=== PATIENT | female | born 1955 | race Caucasian/White ===

== ENCOUNTER 2020-05-05 07:45 | Emergency (ER) | payer MEDICARE, MEDICAID, SELFPAY ==
[2020-05-05] VITALS (7 sets, daily range): BP systolic 126–215; BP diastolic 86–118; PULSE 100–116; RESP 20; TEMP 36.5–37.3; O2SAT 94–96; BMI 30.9
--- NOTE | 2020-05-05 08:06 | RAD_ITS ---
STUDY: X-RAY CHEST REASON FOR EXAM: Female, 64 years old. Acute chest pain TECHNIQUE: Single AP portable view of the chest. COMPARISON: 05/12/2016 FINDINGS: The leads overlie the chest There are interstitial fibrotic changes of the lungs. Stable blunting of the right costophrenic angle unchanged from the previous study, likely postsurgical Normal size heart. Normal mediastinum and eli. Normal visualized pulmonary arteries. Normal visualized aortic arch and descending thoracic aorta. There are diffuse degenerative changes of the visualized thoracic spine. There is degenerative osteoarthritis of the bilateral shoulders. There is no demonstrated abnormality of the visualized soft tissue structures of the upper abdomen. RAD/Chest 1 View (Portable) IMPRESSION: Chronic interstitial and post surgical changes, no acute findings Electronically Signed: Jesus Manuel Waters MD at 9:11 EST , Service support ,
--- NOTE | 2020-05-05 08:14 | ED.DCSUM_ITS ---
History of Present Illness Chief Complaint: Shortness of Breath Informant: Patient Onset: Yesterday Maximum Severity: Mild Narrative: Patient presents complaining of a sensation where her whole body gets hot feels as if she will suddenly put on fire feels then short of breath, symptoms last for a few minutes and resolve this initially occurred yesterday, spontaneously, resolved on its own, then again this morning she felt as if her whole body was put on fire felt short of breath anxious paramedics were called on their arrival her blood pressure was 210/100 and she was brought to the hospital, on exam when she presented per staff she was quite anxious and nervous they were able to verbally redirect her her blood pressure spontaneously improved to about 150/80. The patient has history of COPD right upper lobe lung resection for cancer 2003, hypertension that stable, she has no history of SC PE or DVT, no coronavirus exposures, she is chronically on 2.5 L of oxygen her COPD status has been basically fine she is had no exposures to Covid she is sitting in the bed now saying she feels back to her baseline no burning sensation no chest pain no shortness of breath speaking full sentences. In addition she reports anniversary of her son's and his birthday was recently she is been quite anxious nervous about that she does have an anxiety disorder related to the above she is on medications generally that is been stable but recently her son's birthday she has been quite anxious about his Past Medical History - Allergies and Home Meds Allergies/Adverse Reactions: Allergies Penicillins Allergy (Verified 05/05/20 07:52) Rash Primary Care Physician: Arnulfo Fall MD [Primary Care Provider] - Past Medical History: - - Right upper lobe lung resection COPD anxiety Surgical History: - - Right lung lobectomy due to lung cancer in 2003, no known metastases, remote exploratory laparotomy due to infected ovarian cyst, tubal , chemo therapy, radiation, polyp removed in throat. Smoking Status: Current every day smoker - Family History Maternal Family History: Reports: No pertinent history Paternal Family History: Reports: No pertinent history Review of Systems General: Denies: Chills, Fever, Sweats Eyes: Denies: Visual changes - bilaterally, Diplopia ENT: Denies: Rhinorrhea, Sore throat Cardiovascular: Reports: Chest pain. Denies: Palpitations Respiratory: Reports: Dyspnea. Denies: Cough, Dyspnea on exertion Gastrointestinal: Denies: Abdominal pain, Nausea, Vomiting, Diarrhea, Melena, Hematochezia Genitourinary: Denies: Dysuria, Hematuria, Frequency Musculoskeletal: Denies: Back pain, Extremity Pain Skin: Denies: Rash, Wounds Neurological: Denies: Headache, Weakness, Numbness Physical Exam Vital Signs/Narrative: Vital Signs Temp Pulse Resp BP Pulse Ox 05/05/20 08:02 110 H 20 H 157/86 H 95 05/05/20 07:54 105 H 20 H 150/118 H 95 05/05/20 07:52 97.7 F L 113 H 20 H 215/109 H 94 05/05/20 07:48 97.7 F L 116 H 20 H 215/109 H 95 General: Well nourished, Well developed, No Acute Distress Head: Normocephalic, Atraumatic Eyes: Perrl, EOMI ENT: Moist mucous membranes, No rhinorrhea Neck: Supple, Nontender Cardiovascular: Regular rate, Regular rhythm, No murmurs Respiratory: No distress, CTA bilaterally, Chest nontender, Diminished Abdomen: Soft, Nontender, Nondistended, Normal bowel sounds Back: Nontender, Normal Inspection Extremities: Nontender, No edema Skin: Normal color, No rash Neurological: Alert, Oriented x3, Cranial nerves II-XII grossly intact, Normal Strength, Normal Sensation Psychological: Normal affect, Normal Mood Diagnostic/Tx/Re-eval - Medical Decision Making Patient is resting comfortably her pulse ox is 94% on 2.5 L she speaking full sentences she describes as burning sensation is involving her torso and her arms sometimes her legs I cannot trigger this burning sensation she has no symptoms now she is resting comfortably bed speaking full sentences, there is an anxiety component related to birthday of her son who in the [place] war, given all the above ED screening evaluation ED screening evaluation is entirely unremarkable. Please see all those reports, chest x-ray 1 1 view to my review shows nothing acute cardiopulmonary structures within normal range radiology generally agrees see those reports, I discussed the management with her I discussed admission tensional occult life- threatening conditions calling the above, she declined that stating she felt better she wanted to go home she again indicated she has been quite anxious and nervous related to her social stressors of son's recent birthday etc. she is not been sleeping been up all night, she feels much of this is anxiety, she was on Xanax her doctor stopped that she is now only on Zoloft, at this time she was given Ativan 1 mg p.o. she is comfortable discharge home on Ativan 0.5 mg at bedtime and follow-up with outpatient providers tomorrow and return for change in symptoms Home stable declined admission Final impression diffuse intermittent paroxysmal burning sensation etiology acute clear, transient dyspnea resolved, history of lung cancer COPD and anxiety ED Disposition - Plan for ED Patient: Diagnosis: COPD (chronic obstructive pulmonary disease) Instructions: ED COPD Flare Prescriptions: Lorazepam [Ativan] 0.5 mg PO QHS #7 tab Prescription Printed Referrals: Arnulfo Fall MD [Primary Care Provider] -
--- NOTE | 2020-05-05 08:17 | EKG12_ITS ---
Test Reason : Blood Pressure : / mmHG Vent. Rate : 108 BPM Atrial Rate : 108 BPM P-R Int : 166 ms QRS Dur : 082 ms QT Int : 352 ms P-R-T Axes : 077 048 070 degrees QTc Int : 471 ms Sinus tachycardia Right atrial enlargement Borderline ECG Confirmed by FRANCA OWEN, VINNY ([id number]), videotape editor MAGALIE RAMIREZ ([id number]) on 05/06/2020 10:33:57 AM Referred By: THANH Confirmed By:VINNY SCHULTE MD
[2020-05-05 08:31] LABS: Absolute Lymphocyte Count 1.95 X10^3/uL (0.83-4.51); Absolute Neutrophil Count 5.2 X10^3/uL (2.0-7.7); Basophil# 0.02 X10^3/uL; Basophil% 0.3 % (0-1); Eosinophil# 0.09 X10^3/uL; Eosinophils% 1.2 % (0-5); Hematocrit 42.5 % (37-47); Hemoglobin 13.8 g/dL (12.0-15.0); Lymphocyte # 1.95 X10^3/ul (4.0); Lymphocyte % 24.9 % (19-41); Mean Corp Hgb Conc 32.5 g/dL (32-36); Mean Platelet Vol. 9.3 fl (6.2-12.0); Monocyte# 0.55 X10^3/uL; NRBC Flagged by Analyzer 0 % (0-5); Neutrophil # 5.18 X10^3/uL (2.7-7.7); Neutrophil % 66.2 % (47-70); Platelet Count 206 K/mm3 (150-450); RBC Distribution Width CV 13.7 % (11.6-14.6); Red Blood Count 5.12 M/mm3 (4.2-5.4); White Blood Count 7.8 K/mm3 (4.4-11.0)
[2020-05-05 08:39] LABS: D-Dimer Quantitative (DVT/PE) <= 0.27 FEU/ug/m (0.27-0.49)
[2020-05-05 08:46] LABS: Anion Gap 3 (5-15); BUN 15 mg/dL (7-18); BUN/Creat Ratio 18.4 RATIO (10-20); Calcium,Total 8.4 mg/dL (8.5-10.1); Chloride 106 mmol/L (98-107); Creatinine, Serum 0.82 mg/dL (0.55-1.02); EST Glomerular Filtration Rate 75 mL/min (>60); Est Glom Filt Rate - Afr Amer 90 mL/min (>60); Estimated Creatinine Clearance 59.85 ml/min; Glucose 113 mg/dL (74-106); Potassium 3.8 mmol/L (3.5-5.1); Sodium Level 139 mmol/L (136-145)
[2020-05-05 09:04] LABS: BNP,B-Type NATRIURETIC PEPTIDE 44.4 pg/mL (0-100)
[2020-05-05] MEDS: Morphine 4 MG/ML Syringe IV (09:37)
[2020-05-05] MEDS: LORazepam 1 MG Tablet PO (09:37)
== END 2020-05-05 10:25 | disposition home or self-care (01) ==
LOC: ED 08:41
PROVIDERS: Emergency Provider Emergency Medicine; PCP Family Medicine
DX: J44.9 Chronic obstructive pulmonary disease, unspecified (principal); I10 Essential (primary) hypertension; F41.9 Anxiety disorder, unspecified; F17.200 Nicotine dependence, unspecified, uncomplicated; Z85.118 Personal history of other malignant neoplasm of bronchus and lung; Z99.81 Dependence on supplemental oxygen
CPT/HCPCS: 71045; 80048; 83880; 84484; 85025; 85379; 93005; 96374; 99285; A4216

== ENCOUNTER 2023-07-20 02:51 | Inpatient (IN) | payer MEDICARE, MEDICAID, SELFPAY ==
[2023-07-20] VITALS (17 sets, daily range): BP systolic 124–159; BP diastolic 68–90; PULSE 102–136; RESP 16–25; TEMP 36.6–37.7; O2SAT 90–97; BMI 27.2; BMI 26.6; BMI 26.5
--- NOTE | 2023-07-20 03:01 | RAD_ITS ---
INDICATION: dyspnea EXAMINATION/TECHNIQUE: X-RAY - XR Chest 1 View COMPARISON: None. FINDINGS: LINES/DEVICES: None. LUNGS: Hyperexpansion with coarsened interstitium. Prior right lobectomy. Small layering right effusion. No pneumothorax. MEDIASTINUM AND CARDIOVASCULAR STRUCTURES: Cardiac silhouette not enlarged. Aortic atherosclerosis. BONES AND SOFT TISSUES: Unremarkable. RAD/Chest 1 View (Portable) IMPRESSION: Chronic obstructive pulmonary disease. Small layering right effusion. Electronically Signed: Demetrius Rodgers MD at 4:48 EDT ,
--- NOTE | 2023-07-20 03:02 | EKG12_ITS ---
Test Reason : DYSRHYTHMIA Blood Pressure : / mmHG Vent. Rate : 128 BPM Atrial Rate : 128 BPM P-R Int : 156 ms QRS Dur : 082 ms QT Int : 294 ms P-R-T Axes : 079 034 067 degrees QTc Int : 429 ms Sinus tachycardia Right atrial enlargement Borderline ECG Confirmed by Junito Madrid ([id number]), commissioning editor MAGALIE RAMIREZ ([id number]) on 07/20/2023 1:47:04 PM Referred By: Confirmed By:Junito Madrid
--- NOTE | 2023-07-20 03:04 | EDS_ITS ---
HPI History of Present Illness Chief Complaint: Shortness of Breath Informant: patient Onset/Context/Timing Onset: Days Context: gradual Timing: Continuous Current Severity: Moderate Maximum Severity: Moderate Worsened by: Coughing Relieved by: Oxygen and Albuterol Associated Symptoms cough, fever and yellow sputum Chest Pain: Positive for None Narrative Narrative: 68-year-old female history of COPD she is on 2 and half liters oxygen at home all the time. She has nebulizer inhaler at home. She is on 15 mg of prednisone every other day. Recently developed URI symptoms beginning yesterday and today. Primary care physician cauterant and Zithromax Z-Alban which she started yesterday. Subjectively she has had a fever. Denies any vomiting or diarrhea. No leg pain or swelling. No chest pain. Denies any hemoptysis. Tonight breathing got worse and she called the squad to bring her in. PE Risk Factors: Negative for Cancer, OCP + Smoking + > 35, Prior DVT or PE, Recent immobilization, Recent surgery or Recent travel Prior similar symptoms: Yes Recent Illness/Hospitalization: No PFSH PFSH Home Medications albuterol sulfate 90 mcg/actuation aerosol inhaler (Ventolin HFA) 1 - 2 puff inhalation Q4H PRN PRN Bronchodialation 04/18/13 [History Last Taken 09/23/14] cyclobenzaprine 10 mg tablet 10 mg PO TID PRN PRN Pain 04/18/13 [History Last Taken 09/23/14 10 MG] fluticasone propionate 50 mcg/actuation nasal spray,suspension 1 spray DAILY 04/18/13 [History Last Taken 09/23/14] montelukast 10 mg tablet 10 mg PO DAILY 04/18/13 [History Last Taken 09/23/14 10 MG] omeprazole 20 mg capsule,delayed release 20 mg PO DAILY 04/18/13 [History Last Taken 09/23/14 20 MG] tiotropium bromide 18 mcg capsule with inhalation device (Spiriva with HandiHaler) 1 puff inhalation DAILY 04/18/13 [History Last Taken 09/23/14] verapamil 240 mg tablet,extended release 360 mg PO DAILY 04/18/13 [History Last Taken 09/23/14 360 MG] alprazolam 0.5 mg tablet 0.5 mg PO TID PRN PRN Anxiety ##30 05/04/13 [Rx Last Taken 09/23/14] Oxygen, Home [Home Oxygen] 2.5 lpm PRN PRN Dyspnea 10/22/13 [History Last Taken 09/23/14] sertraline 100 mg tablet 100 mg PO DAILY 10/22/13 [History Last Taken 09/23/14] fluticasone 500 mcg-salmeterol 50 mcg/dose blistr powdr for inhalation (Advair Diskus) 1 puff inhalation BID ##1 10/26/13 [Rx Last Taken 09/23/14] Ropinirole Hcl 0.25 mg PO QHS restless legs 09/23/14 [History Last Taken Unknown] hydrocodone 7.5 mg-acetaminophen 325 mg tablet 7.5 - 325 mg PO Q6H PRN PRN Pain 09/23/14 [History Last Taken Unknown] prednisone 10 mg tablet 10 mg PO PRN PRN FLARE UPS 04/03/15 [History Last Taken Unknown] guaifenesin 600 mg tablet, extended release 12 hr (Mucus Relief ER) 600 mg PO BID 05/13/16 [Rx Last Taken Unknown] ipratropium 0.5 mg-albuterol 3 mg (2.5 mg base)/3 mL nebulization soln 3 ml inhalation Q4HWA.RT ##30 05/13/16 [Rx Last Taken Unknown] prednisone 20 mg tablet 20 mg PO DAILY@0800 ##30 05/13/16 [Rx Last Taken Unknown] lorazepam 0.5 mg tablet 0.5 mg PO QHS #7 tabs 05/05/20 [Rx Last Taken Unknown] Allergy/AdvReac Type Severity Reaction Status Date / Time No Known Allergies Allergy Verified 07/20/23 02:54 Social History Smoking Status: Former smoker ROS ROS ED ROS Narrative Cough. Shortness of breath. Wheezing. Review of Systems ROS Unobtainable: Denies due to encephalopathy Constitutional Constitutional ED: Reports fever(s); Denies chills Eyes Eyes: Denies blurry vision ENT ENT ED: Denies ear pain Cardiovascular Cardiovascular: Denies chest pain Respiratory/Chest Respiratory/Chest: Reports cough and dyspnea Gastrointestinal Gastrointestinal: Denies abdominal pain, constipation, diarrhea, melena, nausea or vomiting Genitourinary Genitourinary ED: Denies dysuria or hematuria Musculoskeletal Musculoskeletal: Denies arthralgias Integumentary Denies abscess Neurologic Neurologic: Denies headache(s) Psychiatric Psychiatric: Denies anxiety Endocrine Endocrinology: Denies cold intolerance Hematologic/Lymphatic Hematologic/Lymphatic: Denies easy bleeding, easy bruising or lymphadenopathy Allergic/Immunologic Allergic/Immunologic ED: Denies mouth swelling, tongue swelling or urticaria EXAM Physical Exam Narrative Exam Narrative: 68-year-old female vital signs are temperature nine 9.8. Pulse ox is 93% on 2 and half liters which is her baseline. H EENT exam unremarkable. Neck nontender. No JVD. Lungs prolonged expiratory phase. Expiratory wheezing. No rales or rhonchi. Equal symmetrical. Increased respiratory effort. Heart tachycardic rate of 130 no murmur. Abdomen soft nontender. No peritoneal signs. Moving all 4 extremities. Nontender no edema. Back nontender. Neurologically she is awake and alert with no focal motor deficits. Answering questions following commands. Const Vital Signs: 07/20/23 02:55 07/20/23 02:59 07/20/23 02:59 Temperature 99.8 F H 99.8 F H Temperature Source Oral Oral Pulse Rate 134 H 136 H Respiratory Rate 22 H 25 H Respiratory Effort Short of Breath Respiratory Pattern Blood Pressure 141/88 H 141/88 H Blood Pressure Mean 105 105 Pulse Ox 93 92 Oxygen Delivery Method Nasal Cannula Nasal Cannula Nasal Cannula Oxygen Flow Rate (L/min) 2.5 2.5 2.5 07/20/23 03:12 07/20/23 03:20 07/20/23 03:11 Temperature 98.4 F Temperature Source Temporal Pulse Rate 123 H 125 H Respiratory Rate 24 H 22 H Respiratory Effort Respiratory Pattern Tachypnea Blood Pressure 159/80 H Blood Pressure Mean 106 Pulse Ox 93 Oxygen Delivery Method Nasal Cannula Nasal Cannula Oxygen Flow Rate (L/min) 2.5 3 07/20/23 04:03 07/20/23 04:03 Temperature 98.2 F Temperature Source Temporal Pulse Rate 124 H 124 H Respiratory Rate 22 H 24 H Respiratory Effort Respiratory Pattern Blood Pressure 151/82 H 154/81 H Blood Pressure Mean 105 105 Pulse Ox 93 93 Oxygen Delivery Method Nasal Cannula Nasal Cannula Oxygen Flow Rate (L/min) 3 3 Positive well nourished and well developed; Negative for cachectic, contractures or unkempt General Appearance ED: well developed; Negative for unkempt, cachectic, contractures, NAD or pallor Nutritional Appearance: Negative for cachectic HEENT Reports moist mucous membranes atraumatic; Negative for trauma or tenderness Eyes PERRL and EOMs intact bilaterally General Eye ED: Negative for pale conjunctiva or scleral icterus Neck no lymphadenopathy, supple, no meningeal signs and no JVD General: Negative for tenderness Lymph Lymphatic: Negative for other Chest Wall Chest: Negative for other Resp No normal respiratory effort and No clear to auscultation bilaterally Resp Narrative: Prolonged expiratory phase. Increased respiratory effort. Tachycardic. Effort and Inspection: Negative for pain with movement Auscultation: wheezes; Negative for rales or rhonchi Cardio regular rhythm, S1 normal heart sound, S2 normal heart sound and no murmurs; Negative for regular rate Rate: tachycardic GI non-tender, non-distended and no masses Auscultation: normoactive bowel sounds Palpation: soft; Negative for tender, guarding or rebound tenderness present Back/Spine no CVA tenderness and normal to inspection General Back: Negative for CVA tenderness or tenderness Extremity normal to inspection General Extremety ED: Negative for edema or tenderness General Extremity: Negative for edema Neuro oriented x3 and CN's II-XII intact bilaterally Sensorium / Orientation: alert, oriented to person, oriented to place and oriented to time; Negative for orientation impaired, confused, lethargic or stuporous Speech: speech normal Motor Exam: strength 5/5 throughout Psych mental status grossly normal Appearance: Negative for unkempt Attitude: No agitated Mood & Affect: Negative for depressed, anxious or tearful Thought Process: normal thought process Skin no wounds and skin turgor normal General Skin Exam: Negative for jaundice or pallor Lesions: no lesions Rashes: no rashes Trauma: Negative for abrasion or laceration MDM MDM MDM Narrative Medical decision making narrative: 68-year-old female comes in for shortness of breath. URI symptoms. Viral illness versus pneumonia. COPD exacerbation. Rule out cardiac event. Patient be treated with both DuoNeb and albuterol aerosols. IV Solu-Medrol. Chest x- ray and labs are pending. Repeat exam at 3:40 AM. Patient's been given aerosols and IV Solu-Medrol. She is improving. But she still has expiratory wheezes. Repeat exam at 4 AM patient has improved from her initial presentation but she still wheezing and working to breathe. She remains tachycardic with her current heart rates around 125. I think she would benefit from admission and repeat breathing treatments. I have the hospitalist on page. History & Record Review Discussion w/independent historian: Patient Additional record(s) reviewed:: Prior inpatient record, Prior outpatient record, Prior ED visit, Prior labs and No prior records Lab Data Attestation: I reviewed the patient's lab results. Lab results narrative: CBC unremarkable. White count 8. H&H 14 and 44. Platelets 233. Electrolytes show a gap of 5. Normal BUN and creatinine. Glucose 129. Respiratory viral studies are negative. Labs: Laboratory Results - last 24 hr 07/20/23 03:00 WBC 8.9 RBC 5.34 Hgb 14.1 Hct 44.2 MCV 82.8 MCH 26.4 L MCHC 31.9 L RDW Std Deviation 41.0 RDW Coeff of Augusitn 13.6 Plt Count 233 MPV 9.9 Immature Gran % (Auto) 0.300 Neut % (Auto) 67.5 Lymph % (Auto) 23.7 [place] % (Auto) 7.6 Eos % (Auto) 0.6 Baso % (Auto) 0.3 Absolute Neuts (auto) 6.0 Absolute Lymphs (auto) 2.11 Nucleated RBC % 0 Sodium 139 Potassium 3.8 Chloride 101 Carbon Dioxide 33.0 H Anion Gap 5 BUN 13 Creatinine 0.70 Estim Creat Clear Calc 65.47 Est GFR (MDRD) Af Amer 108 Est GFR (MDRD) Non-Af 89 BUN/Creatinine Ratio 18.7 Glucose 129 H Calcium 8.8 Radiography Chest X-Ray - ED: 1 View, Read by ED Physician, Heart, Lungs, Mediastinum, Bony Structures, No Acute Disease and Chronic Changes Diagnostic Testing: Chest x-ray, portable, single view interpreted by myself shows normal cardiac silhouette. Chronic changes in both lungs consistent with COPD and scarring. Right chest cavity small pleural effusion versus pleural thickening. Consistent with prior chest x-ray. Rhythm Strip Rhythm Strip: Sinus Tach Rate: 128 Ectopy: None EKG Initial EKG: Attestation: I personally reviewed and interpreted this EKG as follows: Interpretation: No Acute Injury Pattern and Sinus Tachycardia Comments: Sinus tachycardia rate of 128. No acute signs of NH or ischemia. Discharge Plan Triage Chief Complaint: Shortness of Breath ED Provider: Dallas Mena Dx/Rx/DC Orders Clinical Impression: Hypoxia, COPD (chronic obstructive pulmonary disease) Prescriptions: No Action cyclobenzaprine 10 MG tablet 10 mg PO TID PRN PRN (Reason: Pain) 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 omeprazole 20 MG capsule 20 mg PO DAILY Patient Comments: ACID REFLUX MEDICATION verapamil 240 MG tablet 360 mg PO DAILY Patient Comments: HEART MEDICATION montelukast 10 MG tablet 10 mg PO DAILY Patient Comments: ANTI-HISTAMINE albuterol sulfate [Ventolin HFA] 1 INHALER inhaler 1 - 2 puff inhalation Q4H PRN PRN (Reason: Bronchodialation) Patient Comments: COPD/SHORTNESS OF BREATH fluticasone propionate 1 SPRAY spray,suspension 1 spray NASAL DAILY Patient Comments: NASAL SPRAY TO HELP CONGESTION tiotropium bromide [Spiriva with HandiHaler] 1 PUFF inhaler 1 puff inhalation DAILY Patient Comments: INHALER FOR COPD alprazolam 0.5 MG tablet 0.5 mg PO TID PRN PRN (Reason: Anxiety) Qty: 30 0RF Patient Comments: anxiety sertraline 100 MG tablet 100 mg PO DAILY Patient Comments: mood enhancement Oxygen, Home [Home Oxygen] 2.5 lpm NASAL PRN PRN (Reason: Dyspnea) Patient Comments: oxygen fluticasone propion-salmeterol [Advair Diskus] 1 PUFF inhaler 1 puff inhalation BID Qty: 1 0RF Patient Comments: nasal congestion hydrocodone-acetaminophen 1 EACH tablet 7.5 - 325 mg PO Q6H PRN PRN (Reason: Pain) Patient Comments: pain Ropinirole Hcl 0.25 MG tablet 0.25 mg PO QHS Patient Comments: restless legs prednisone 10 MG tablet 10 mg PO PRN PRN (Reason: FLARE UPS) Patient Comments: steroid for inflammation ipratropium-albuterol 3 ML solution for nebulization 3 ml inhalation Q4HWA.RT Qty: 30 0RF guaifenesin [Mucus Relief ER] 600 MG tablet 600 mg PO BID 0RF prednisone 20 MG tablet 20 mg PO DAILY@0800 Qty: 30 0RF Rx Instructions: Take 2 tabs for 3 days, then one tab for 3 days, then 1/2 pill for 7 days, then stop. lorazepam 0.5 MG tablet 0.5 mg PO QHS Qty: 7 0RF Primary Care Provider: Arnulfo Fall Referrals: Arnulfo Fall MD [Primary Care Provider] - 1 Week if not improving Activity Restrictions/Additional Instructions: Plenty of fluids and rest. Finish your current antibiotic. Prednisone daily 40 mg a day for 10 days. Then you can restart your chronic steroid use. Follow-up with your doctor to ensure you are improving or return if worse. Absolutely long-term you have got to try to quit smoking. Use your inhalers and nebulizer as needed for your shortness of breath and wheezing. Disposition Disposition: Acute Care Hospital [facility]
[2023-07-20] MEDS: Albuterol 2.5 MG/3 ML VIAL.NEB. INHALATION ×3 (03:11→03:36)
[2023-07-20] MEDS: Ipratropium/Albuterol Sulfate 3 ML AMPUL.NEB INHALATION ×4 (03:11→19:09)
[2023-07-20 03:16] LABS: Absolute Lymphocyte Count 2.11 X10^3/uL (0.83-4.51); Basophil# 0.03 X10^3/uL; Basophil% 0.3 % (0-1); Eosinophil# 0.05 X10^3/uL; Eosinophils% 0.6 % (0-5); Hematocrit 44.2 % (37-47); Hemoglobin 14.1 g/dL (12.0-15.0); Lymphocyte # 2.11 X10^3/ul (0.83-4.51); Lymphocyte % 23.7 % (19-41); Mean Corp Hgb Conc 31.9 g/dL (32-36); Mean Corpuscular Hgb 26.4 pg (27.0-32.0); Mean Corpuscular Volume 82.8 fL (81-99); Mean Platelet Vol. 9.9 fl (6.2-12.0); Monocyte# 0.68 X10^3/uL; Monocyte% 7.6 % (0-10); NRBC Flagged by Analyzer 0 % (0-5); Neutrophil # 5.99 X10^3/uL (2.7-7.7); Neutrophil % 67.5 % (47-70); Platelet Count 233 K/mm3 (150-450); RBC Distribution Width CV 13.6 % (11.6-14.6); Red Blood Count 5.34 M/mm3 (4.2-5.4); White Blood Count 8.9 K/mm3 (4.4-11.0)
[2023-07-20] MEDS: 0.9% Normal Saline (500mL Bag) 500 ML 999 ML IV (03:17)
[2023-07-20] MEDS: MethylPREDNISolone 125 MG/2 ML Vial IV (03:18)
[2023-07-20 03:34] LABS: Anion Gap 5 (5-15); BUN 13 mg/dL (7-18); BUN/Creat Ratio 18.7 RATIO (10-20); Calcium,Total 8.8 mg/dL (8.5-10.1); Chloride 101 mmol/L (98-107); EST Glomerular Filtration Rate 89 mL/min (>60); Est Glom Filt Rate - Afr Amer 108 mL/min (>60); Estimated Creatinine Clearance 65.47 ml/min; Glucose 129 mg/dL (74-106); Potassium 3.8 mmol/L (3.5-5.1); Sodium Level 139 mmol/L (136-145)
--- NOTE | 2023-07-20 03:37 | CPS ---
x3 Albuterol given to pt. in ER
--- NOTE | 2023-07-20 04:06 | HP.PCM.HOS_ITS ---
[facility] - General General Date of Admission: 07/20/23 Date of Service: 07/20/23 Chief Complaint: SOB, Wheezing and Cough with Green Sputum. [facility] Narrative DENIA MARC, is a 68 F with a past medical history of essential hypertension, overweight; with BMI of 27.2 this admission, history of ongoing tobacco abuse; with subsequent steroid-dependent COPD, chronic hypoxic respiratory failure; on 2.5L NC, history of non-small cell lung cancer; s/p Right lobectomy, RLS, depression with anxiety, GERD and OA who presents to [facility] ER complaining of shortness of breath, wheezing and cough with green sputum. Ms. Marc reports her symptoms began approximately 2 days prior to admission with a gradual onset of dyspnea on exertion that progressed to shortness of breath at rest. She had noticed rapidly developing upper respiratory infection symptoms and spite of her 50 mg of prednisone every other day, increased use of her nebulizers and a Z-Alban started by her primary care physician yesterday. She admits to subjective fevers and worsening cough and wheezing that caused her to activate EMS. She denies associated chills, nausea, vomiting, leg pain, leg swelling, chest pain or hemoptysis. She admits her symptoms are similar to her previous COPD exacerbations. In the ER she was diagnosed with acute exacerbation of COPD with clinical evidence of [id number] hypoxic respiratory insufficiency likely due to recent viral URI in the setting of ongoing tobacco abuse and she was then admitted to the general medical floor for ongoing care for stay that is expected to be greater than 48 hours. [facility] Home Medications albuterol sulfate 90 mcg/actuation aerosol inhaler (Ventolin HFA) 1 - 2 puff inhalation Q4H PRN PRN Bronchodialation 04/18/13 [History Last Taken 09/23/14] cyclobenzaprine 10 mg tablet 10 mg PO Q12H pain 04/18/13 [History Last Taken 10 MG] fluticasone propionate 50 mcg/actuation nasal spray,suspension 1 spray intranasal DAILY nasal congestion 04/18/13 [History Last Taken 09/23/14] montelukast 10 mg tablet 10 mg PO DAILY allergies 04/18/13 [History Last Taken 09/23/14 10 MG] omeprazole 20 mg capsule,delayed release 20 mg PO DAILY heart burn 04/18/13 [History Last Taken 09/23/14 20 MG] tiotropium bromide 18 mcg capsule with inhalation device (Spiriva with HandiHaler) 1 puff inhalation DAILY wheezing 04/18/13 [History Last Taken 09/23/14] verapamil 240 mg tablet,extended release 360 mg PO DAILY heart 04/18/13 [History Last Taken 09/23/14 360 MG] Oxygen, Home [Home Oxygen] 2.5 lpm PRN PRN Dyspnea 10/22/13 [History Last Taken 09/23/14] sertraline 100 mg tablet 100 mg PO DAILY insomina 10/22/13 [History Last Taken 09/23/14] fluticasone 500 mcg-salmeterol 50 mcg/dose blistr powdr for inhalation (Advair Diskus) 1 puff inhalation BID shortness of breath ##1 10/26/13 [Rx Last Taken 09/23/14] Ropinirole Hcl 0.25 mg PO QHS restless legs 09/23/14 [History Last Taken Unknown] hydrocodone 7.5 mg-acetaminophen 325 mg tablet 7.5 - 325 mg PO Q6H PRN PRN Pain 09/23/14 [History Last Taken Unknown] prednisone 10 mg tablet 15 mg PO PRN PRN FLARE UPS 04/03/15 [History Last Taken Unknown] guaifenesin 600 mg tablet, extended release 12 hr (Mucus Relief ER) 600 mg PO BID congestion 05/13/16 [Rx Last Taken Unknown] ipratropium 0.5 mg-albuterol 3 mg (2.5 mg base)/3 mL nebulization soln 3 ml inhalation Q4HWA.RT wheezing ##30 05/13/16 [Rx Last Taken Unknown] lorazepam 0.5 mg tablet 0.5 mg PO QHS anxiety #7 tabs 05/05/20 [Rx Last Taken Unknown] Allergy/AdvReac Type Severity Reaction Status Date / Time No Known Allergies Allergy Verified 07/20/23 02:54 Social History Smoking Status: Former smoker ROS ROS Narrative Review of systems: General: Patient admits to subjective fever but denies chills. HENT: Denies headache, denies stuffy nose, denies sore throat, denies ear pain EYES: Denies changes in vision or discharge from eyes. Resp: Patient admits to dyspnea on exertion that progressed to shortness of breath at rest with wheezing and cough productive of sputum as per HPI. Cardiac: Denies chest pain or palpitations. GI: Denies abdominal pain, denies changes in bowel, denies nausea or vomiting. : Denies changes in urination Extremity: Denies swelling Musculoskeletal: Feels somewhat generally weak and unwell but denies arthralgias or myalgias. Neuro: Patient denies headache, paresthesias or focal neurologic weakness. Heme: Denies any bleeding or bruising Skin: Denies rashes Psychiatric: No complaints voiced related to uncontrolled depression or anxiety. Endocrine: No polyuria, polydipsia or polyphagia. The rest of the 14 point ROS was negative except for positives in HPI. Vital Signs Vital Signs Vital Signs: 07/20/23 02:55 07/20/23 02:59 07/20/23 02:59 Temperature 99.8 F H 99.8 F H Temperature Source Oral Oral Pulse Rate 134 H 136 H Respiratory Rate 22 H 25 H Respiratory Effort Short of Breath Respiratory Pattern Blood Pressure 141/88 H 141/88 H Blood Pressure Mean 105 105 Pulse Ox 93 92 Oxygen Delivery Method Nasal Cannula Nasal Cannula Nasal Cannula Oxygen Flow Rate (L/min) 2.5 2.5 2.5 07/20/23 03:12 07/20/23 03:20 07/20/23 03:11 Temperature 98.4 F Temperature Source Temporal Pulse Rate 123 H 125 H Respiratory Rate 24 H 22 H Respiratory Effort Respiratory Pattern Tachypnea Blood Pressure 159/80 H Blood Pressure Mean 106 Pulse Ox 93 Oxygen Delivery Method Nasal Cannula Nasal Cannula Oxygen Flow Rate (L/min) 2.5 3 07/20/23 04:03 07/20/23 04:03 Temperature 98.2 F Temperature Source Temporal Pulse Rate 124 H 124 H Respiratory Rate 22 H 24 H Respiratory Effort Respiratory Pattern Blood Pressure 151/82 H 154/81 H Blood Pressure Mean 105 105 Pulse Ox 93 93 Oxygen Delivery Method Nasal Cannula Nasal Cannula Oxygen Flow Rate (L/min) 3 3 Weight Weight: 158 lb 11.725 oz Body Mass Index (BMI) 27.2 Physical Exam Const alert, oriented x3 and average body habitus Constitutional Narrative: Patient noted to have mildly labored respirations with expiratory wheezing. General Appearance: cooperative HEENT normocephalic, head/scalp atraumatic, hearing grossly normal bilaterally and moist oral mucous membranes Eyes PERRL and EOMs intact bilaterally Neck no lymphadenopathy and supple Resp Resp Narrative: Diminished breath sounds throughout with expiratory wheezing and prolonged expiratory phase. Auscultation: wheezes Cardio regular rate and regular rhythm Cardio Narrative: Tachycardia regular at approximately 130 bpm. GI normal to inspection, nondistended, normoactive bowel sounds, soft to palpation, non-tender and non-distended Extremity normal to inspection, full ROM and no clubbing, cyanosis or edema Skin Skin Narrative: Patient has no evidence of rash or abscess at this time. Neuro oriented x3, CN's II-XII intact bilaterally, moves all extremities and no focal motor deficits Sensorium / Orientation: awake, alert, oriented to person, oriented to place and oriented to time Speech: speech normal Motor Exam: strength 5/5 throughout Psych affect normal Results Medical Records Data Attestation: I reviewed the patient's medical records Lab / Micro Data Attestation: I reviewed the patient's lab results. 07/20/23 03:00 07/20/23 03:00 Labs: Laboratory Results - last 24 hr 07/20/23 03:00: WBC 8.9, RBC 5.34, Hgb 14.1, Hct 44.2, MCV 82.8, MCH 26.4 L, MCHC 31.9 L, RDW Std Deviation 41.0, RDW Coeff of Augustin 13.6, Plt Count 233, MPV 9.9, Immature Gran % (Auto) 0.300, Neut % (Auto) 67.5, Lymph % (Auto) 23.7, Moca % (Auto) 7.6, Eos % (Auto) 0.6, Baso % (Auto) 0.3, Absolute Neuts (auto) 6.0, Absolute Lymphs (auto) 2.11, Nucleated RBC % 0, Sodium 139, Potassium 3.8, Chloride 101, Carbon Dioxide 33.0 H, Anion Gap 5, BUN 13, Creatinine 0.70, Estim Creat Clear Calc 65.47, Est GFR (MDRD) Af Amer 108, Est GFR (MDRD) Non-Af 89, BUN/Creatinine Ratio 18.7, Glucose 129 H, Calcium 8.8 Micro: Microbiology 07/20/23 03:15 Mucosa - Nose SARS-CoV-2, Influenza & RSV (PCR) - Final Rhythm Strip Rhythm Strip: Sinus Tach Rate: 128 Ectopy: None Imaging Chest x-ray negative for infiltrate or other acute pathologic change positive for signs of emphysema and chronic scarring. Assessment & Plan Assessment/Plan (1) COPD with acute exacerbation: (2) Viral URI with cough: (3) Respiratory insufficiency: PLAN: Plan 1. Acute exacerbation of COPD in the setting of ongoing tobacco abuse - Admit to general medical floor. Continue IV Solu-Medrol and begin IV doxycycline plus scheduled and as needed nebulizers. Give Tylenol as needed for [id number] (level 1-5/10) pain or fever. Continue Percocet prn for severe (level 6-10/10) pain. Tobacco cessation will be strongly encouraged with nicotine patch offered to control cravings. 2. Viral URI likely triggering #1 - Check viral respiratory panel and placed on contact and droplet precautions until confirmed negative. 3. Uxhip-vi-ebirppw hypoxic respiratory insufficiency arising from #1 & #2 - Wean supplemental oxygen as tolerated back to baseline levels. 4. Essential hypertension - Continue home regimen plus give as needed IV hydralazine for systolic blood pressure greater than 160 mmHg. 5. Overweight; with BMI of 27.2 this admission - Weight loss will be recommend ed. Check TSH. 6. History of non-small cell lung cancer; s/p Right lobectomy - Noted with no signs of recurrence on chest x-ray this admission. 7. RLS - Continue scheduled Requip nightly as previous. 8. Depression with anxiety - Resume current medication regimen. 9. GERD - Continue PPI. 10. OA - Stable. Give Tylenol as needed. 11. DVT prophylaxis - Give Lovenox 40 mg subcu daily. Total time: Approximately 55 minutes. Charges/Coding Visit Charges Inpatient E&M: 55317 Init Hosp L2
[2023-07-20] MEDS: Oxycodone/Apap 5/325 Tablet PO ×2 (04:43→16:54)
[2023-07-20] MEDS: 0.9% Normal Saline (1000mL) 1,000 ML 70 ML IV ×2 (05:19→20:50)
[2023-07-20] MEDS: Acetaminophen 325 MG Tablet 650 MG PO ×2 (05:52→21:10)
[2023-07-20 07:13] LABS: Absolute Lymphocyte Count 0.31 X10^3/uL (0.83-4.51); Absolute Neutrophil Count 8.3 X10^3/uL (2.0-7.7); Basophil# 0.01 X10^3/uL; Basophil% 0.1 % (0-1); Hematocrit 41.4 % (37-47); Hemoglobin 13.3 g/dL (12.0-15.0); Lymphocyte # 0.31 X10^3/ul (0.83-4.51); Lymphocyte % 3.5 % (19-41); Mean Corp Hgb Conc 32.1 g/dL (32-36); Mean Corpuscular Hgb 26.7 pg (27.0-32.0); Monocyte% 1.1 % (0-10); NRBC Flagged by Analyzer 0 % (0-5); Neutrophil # 8.29 X10^3/uL (2.7-7.7); POSITIVE DIFFERENTIAL YES; Platelet Count 203 K/mm3 (150-450); RBC Distribution Width CV 13.5 % (11.6-14.6); RBC Distribution Width SD 40.5 fl (35.1-43.9); Red Blood Count 4.99 M/mm3 (4.2-5.4); White Blood Count 8.7 K/mm3 (4.4-11.0)
[2023-07-20] MEDS: Budesonide Respules 0.5 MG/2 ML AMPUL.NEB. INHALATION ×2 (07:19→19:09)
[2023-07-20 07:56] LABS: ALB/GLOB Ratio 0.8 RATIO (0.9-2.4); AST(SGOT) 13 U/L (15-37); Alanine Aminotransfer ALT/SGPT 15 U/L (13-56); Albumin, Serum 3.4 g/dL (3.2-5.0); Alkaline Phosphatase 72 U/L (45-117); Anion Gap 7 (5-15); BUN 15 mg/dL (7-18); BUN/Creat Ratio 23.6 RATIO (10-20); Calcium,Total 8.8 mg/dL (8.5-10.1); Chloride 103 mmol/L (98-107); Creatinine, Serum 0.64 mg/dL (0.55-1.02); EST Glomerular Filtration Rate 99 mL/min (>60); Est Glom Filt Rate - Afr Amer 120 mL/min (>60); Estimated Creatinine Clearance 64.88 ml/min; Glucose 125 mg/dL (74-106); Magnesium 2.1 mg/dL (1.6-2.6); Phosphorus 2.4 mg/dL (2.5-4.9); Potassium 3.8 mmol/L (3.5-5.1); Protein, Total 7.4 g/dL (6.4-8.2); Sodium Level 140 mmol/L (136-145); Thyroid Stim Hormone (TSH) 0.35 uIU/mL (0.358-3.74)
[2023-07-20] MEDS: Doxycycline 100 MG in Dextrose 5%-Water (250mL Bag) 250 ML 250 MG IV ×2 (08:47→21:01)
[2023-07-20] MEDS: Pantoprazole Sodium 20 MG Tablet PO (08:48)
[2023-07-20] MEDS: Ascorbic Acid 500 MG Tablet 1000 MG PO ×2 (08:48→16:50)
[2023-07-20] MEDS: Montelukast 10 MG Tablet PO (08:48)
[2023-07-20] MEDS: Verapamil SR 180 MG CAPSULE 360 MG PO (08:48)
[2023-07-20] MEDS: Sertraline 100 MG Tablet PO (08:49)
[2023-07-20] MEDS: Enoxaparin 40 MG/0.4 ML Syringe SC (08:49)
[2023-07-20] MEDS: Zinc Sulfate 50 mg zinc (220 mg) ORAL capsule PO (08:49)
[2023-07-20] MEDS: guaiFENesin 600 MG Tablet PO ×2 (08:50→21:01)
[2023-07-20] MEDS: Cholecalciferol (Vit D3) 125 MCG CAPSULE (5,000 UNITS) PO (08:50)
[2023-07-20] MEDS: cycloBENZAPRine HCl 10 MG Tablet PO (09:56)
[2023-07-20] MEDS: MethylPREDNISolone 125 MG/2 ML Vial 60 MG IV ×2 (11:24→21:01)
--- NOTE | 2023-07-20 11:42 | CASEMGMT ---
KAREN VARGAS Assessment Face to Face with patient for initial transition planning/care coordination assessment. KAREN VARGAS introduced self and role at [facility], pt voices understanding. Pt is A&Ox4 and is resting comfortably in the chair and is calm. Care providers, pharmacy, and demographics verified. Admitting dx: Acute Exacerbation of COPD PCP: [facility] Specialists: Denies Preferred Pharmacy: [facility] during stay here. [facility] Prescription Benefit: Yes LNOK: Mike Gregg (SO), Nathaniel Gonzalez (Son) Living Arrangements: Pt lives with her SO in a single story home with a BM with HR but does not go down the stairs. Pt states there are 2 steps to enter with HR. ADLs/IADLs: Pt states her DIL works for [employer] and is able to come to the pt home M-F (7:30a-3:30p) and assist with her needs. Pt DIL helps with shopping, cleaning the home, washing the pt hair, laundry, etc. Transportation: DIL, SO. DME: WC at home but does not use. BP Cuff. Shower chair with GB. Raised toilet. Pt states that she wears 2.5L of Oxygen at home thru [facility] ([place]). Pt states that she has portable tanks, concentrator, and Pulse Ox. Pt states that she does not have a tank in the room currently. Pt states that she will be able to have someone bring one in for her before DC. [facility] called at this time and they state the pt current order is 2L with exertion. CM to follow for possible updated Rx. HHC/SNF: Denies SNF history. See above for [employer] info. Pt?s goal: Home with the continuation of [employer] assistance Plan: Pt 6-Click is 20. Pt was cleared by PT. Pt states that she feels safe DCing home with [employer]. Pt denies needing any additional therapy set up at this time. CM to follow for safe DC from [facility]. Divya Altamirano RN, CM
--- NOTE | 2023-07-20 15:58 | CASEMGMT ---
KHADIJAH called [employer] to notify them of patient's admission. Patient's case making machine operator is Palma Anguiano. Patient has a life alert button through [facility] and Wednesday through Wednesday she gets 8 hours of personal care aides through [place]. Meliza HOLM
[2023-07-20] MEDS: LORazepam 0.5 MG Tablet PO (21:01)
[2023-07-20] MEDS: Pramipexole Di-HCl 0.125 MG Tablet PO (21:01)
[2023-07-21] VITALS (10 sets, daily range): BP systolic 110–155; BP diastolic 57–78; PULSE 92–107; RESP 18–20; TEMP 36.7–36.9; O2SAT 91–95; BMI 26.5
[2023-07-21] MEDS: Ipratropium/Albuterol Sulfate 3 ML AMPUL.NEB INHALATION ×3 (07:08→17:51)
[2023-07-21] MEDS: Budesonide Respules 0.5 MG/2 ML AMPUL.NEB. INHALATION (07:08)
[2023-07-21 07:31] LABS: Absolute Lymphocyte Count 0.61 X10^3/uL (0.83-4.51); Absolute Neutrophil Count 6.1 X10^3/uL (2.0-7.7); Hematocrit 37.4 % (37-47); Lymphocyte # 0.61 X10^3/ul (0.83-4.51); Lymphocyte % 8.8 % (19-41); Mean Corp Hgb Conc 32.1 g/dL (32-36); Mean Corpuscular Hgb 26.5 pg (27.0-32.0); Mean Corpuscular Volume 82.7 fL (81-99); Mean Platelet Vol. 9.9 fl (6.2-12.0); Monocyte# 0.19 X10^3/uL; Monocyte% 2.7 % (0-10); NRBC Flagged by Analyzer 0 % (0-5); Neutrophil # 6.09 X10^3/uL (2.7-7.7); Neutrophil % 88.1 % (47-70); Platelet Count 210 K/mm3 (150-450); RBC Distribution Width CV 13.4 % (11.6-14.6); RBC Distribution Width SD 40.3 fl (35.1-43.9); Red Blood Count 4.52 M/mm3 (4.2-5.4); White Blood Count 6.9 K/mm3 (4.4-11.0)
[2023-07-21 07:50] LABS: Anion Gap 3 (5-15); BUN 13 mg/dL (7-18); BUN/Creat Ratio 27.8 RATIO (10-20); Calcium,Total 8.6 mg/dL (8.5-10.1); Chloride 107 mmol/L (98-107); Creatinine, Serum 0.47 mg/dL (0.55-1.02); EST Glomerular Filtration Rate 141 mL/min (>60); Est Glom Filt Rate - Afr Amer 170 mL/min (>60); Estimated Creatinine Clearance 64.83 ml/min; Glucose 140 mg/dL (74-106); Potassium 4.1 mmol/L (3.5-5.1); Sodium Level 140 mmol/L (136-145)
--- NOTE | 2023-07-21 10:13 | PN.HOSP_ITS ---
Subjective Subjective She feels about the same as when she came in. She is on her baseline 2 L of oxygen Objective Data Objective Data Vital Signs: Vital Signs Temp Pulse Resp BP Pulse Ox O2 Del Method O2 Flow Rate 98.3 F 103 H 19 H 121/68 H 93 Nasal Cannula 2 07/21/23 05:00 07/21/23 07:10 07/21/23 07:10 07/21/23 05:00 07/21/23 08:00 07/21/23 08:00 07/21/23 08:00 Oxygen Flow Rate (L/min) 2 Oxygen Delivery Method Nasal Cannula Weight: 155 lb 6.814 oz Body Mass Index (BMI) 26.5 Intake & Output: Intake and Output for Last 24 Hours 07/20/23 07/21/23 07/22/23 03:59 03:59 03:59 Intake Total 3205 / 3205 250 / 250 Balance 3205 / 3205 250 / 250 Lab / Micro Data 07/21/23 06:38 07/21/23 06:38 Labs: Laboratory Results - last 24 hr 07/21/23 06:38: WBC 6.9, RBC 4.52, Hgb 12.0, Hct 37.4, MCV 82.7, MCH 26.5 L, MCHC 32.1, RDW Std Deviation 40.3, RDW Coeff of Augustin 13.4, Plt Count 210, MPV 9.9, Immature Gran % (Auto) 0.400, Neut % (Auto) 88.1 H, Lymph % (Auto) 8.8 L, Pettis % (Auto) 2.7, Eos % (Auto) 0.0, Baso % (Auto) 0.0, Absolute Neuts (auto) 6.1, Absolute Lymphs (auto) 0.61 L, Nucleated RBC % 0, Sodium 140, Potassium 4.1, Chloride 107, Carbon Dioxide 30.0, Anion Gap 3 L, BUN 13, Creatinine 0.47 L , Estim Creat Clear Calc 64.83, Est GFR (MDRD) Af Amer 170, Est GFR (MDRD) Non- Af 141, BUN/Creatinine Ratio 27.8 H, Glucose 140 H, Calcium 8.6 Micro: Microbiology 07/20/23 03:15 Mucosa - Nose SARS-CoV-2, Influenza & RSV (PCR) - Final Rhythm Strip Rhythm Strip: Sinus Tach Rate: 128 Ectopy: None Physical Exam Narrative General: Alert, Oriented x3, Cooperative, No apparent distress HEENT: Atraumatic, PERRLA, EOMI, Normocephalic Oral: Moist Mucosa Neck: Supple, No JVD Lungs: Diminished, poor air movement, No rhonchi, wheeze, No rales Cardiovascular: Tachycardic, Regular Rhythm, Normal S1, Normal S2, No murmurs Abdomen: Soft, Non Tender, Non-Distended, No Hepato-splenomegaly Extremities: No edema, Capillary Refill Less than 3 Seconds Skin: No rashes, No breakdown Musculoskeletal: No Tenderness to Palpation of Joints or Extremities Neurological: No focal neurological deficits, Motor Exam 5/5 strength throu ghout, Sensory exam intact to light touch and pain Psych/Mental Status: Normal Affect, Appropriate Assessment & Plan Assessment/Plan (1) COPD with acute exacerbation: (2) Viral URI with cough: (3) Respiratory insufficiency: PLAN: Plan 1. Acute COPD exacerbation with chronic hypoxic respiratory failure/tobacco abuse/history of non-small cell lung cancer ?Continue with IV steroids as well as breathing treatments ? Will attempt to get a sputum culture though she has been on doxycycline for 24 hours ? She feels short of breath but she is at her baseline oxygen requirements ? Will obtain an ambulatory pulse ox today just to gauge as to where we are at in her course ? She would like a Nicorette gum on discharge she has the patch and the lozenge at home ? She is status post right lobectomy for her lung cancer ? Discussed tobacco cessation 2. Essential HTN ? Blood pressure stable ? Continue with verapamil ? Will monitor make adjustments as necessary 3. Anxiety/depression ? Stable ? Continue with home medications 4. GERD ? Stable ? Continue with PPI DVT: Lovenox Charges/Coding Visit Charges Inpatient E&M: 61290 Subs Hosp L2
[2023-07-21] MEDS: Enoxaparin 40 MG/0.4 ML Syringe SC (10:44)
[2023-07-21] MEDS: Fluticasone 0.05% 1 SPRAY NASAL.SRY NASAL (10:45)
[2023-07-21] MEDS: guaiFENesin 600 MG Tablet PO ×2 (10:45→21:55)
[2023-07-21] MEDS: Sertraline 100 MG Tablet PO (10:46)
[2023-07-21] MEDS: Pantoprazole Sodium 20 MG Tablet PO (10:46)
[2023-07-21] MEDS: Zinc Sulfate 50 mg zinc (220 mg) ORAL capsule PO (10:46)
[2023-07-21] MEDS: 0.9% Normal Saline (1000mL) 1,000 ML 70 ML IV (10:47)
[2023-07-21] MEDS: Ascorbic Acid 500 MG Tablet 1000 MG PO (10:47)
[2023-07-21] MEDS: Montelukast 10 MG Tablet PO (10:48)
[2023-07-21] MEDS: Verapamil SR 180 MG CAPSULE 360 MG PO (10:49)
[2023-07-21] MEDS: Cholecalciferol (Vit D3) 125 MCG CAPSULE (5,000 UNITS) PO (10:50)
[2023-07-21] MEDS: MethylPREDNISolone 125 MG/2 ML Vial 60 MG IV ×2 (10:50→21:53)
[2023-07-21] MEDS: Doxycycline 100 MG in Dextrose 5%-Water (250mL Bag) 250 ML 250 MG IV ×2 (11:07→21:52)
[2023-07-21] MEDS: Oxycodone/Apap 5/325 Tablet PO (16:17)
[2023-07-21] MEDS: LORazepam 0.5 MG Tablet PO (21:52)
[2023-07-21] MEDS: Pramipexole Di-HCl 0.125 MG Tablet PO (21:54)
[2023-07-22] VITALS (10 sets, daily range): BP systolic 129–146; BP diastolic 68–82; PULSE 93–107; RESP 18–20; TEMP 36.6–37.1; O2SAT 90–96; BMI 26.5
[2023-07-22] MEDS: 0.9% Normal Saline (1000mL) 1,000 ML 70 ML IV (01:47)
[2023-07-22] MEDS: Ipratropium/Albuterol Sulfate 3 ML AMPUL.NEB INHALATION ×5 (03:32→17:48)
[2023-07-22] MEDS: Budesonide Respules 0.5 MG/2 ML AMPUL.NEB. INHALATION ×2 (06:53→17:49)
[2023-07-22] MEDS: Doxycycline 100 MG in Dextrose 5%-Water (250mL Bag) 250 ML 250 MG IV (10:32)
[2023-07-22] MEDS: Ascorbic Acid 500 MG Tablet 1000 MG PO (10:43)
[2023-07-22] MEDS: Pantoprazole Sodium 20 MG Tablet PO (10:43)
[2023-07-22] MEDS: Montelukast 10 MG Tablet PO (10:43)
[2023-07-22] MEDS: Sertraline 100 MG Tablet PO (10:43)
[2023-07-22] MEDS: Verapamil SR 180 MG CAPSULE 360 MG PO (10:43)
[2023-07-22] MEDS: guaiFENesin 600 MG Tablet PO (10:43)
[2023-07-22] MEDS: Zinc Sulfate 50 mg zinc (220 mg) ORAL capsule PO (10:44)
[2023-07-22] MEDS: Enoxaparin 40 MG/0.4 ML Syringe SC (10:44)
[2023-07-22] MEDS: Cholecalciferol (Vit D3) 125 MCG CAPSULE (5,000 UNITS) PO (10:44)
[2023-07-22] MEDS: MethylPREDNISolone 125 MG/2 ML Vial 60 MG IV (10:45)
[2023-07-22] MEDS: 0.9% Saline Lock 10 ML Syringe IV (10:45)
--- NOTE | 2023-07-22 11:01 | PCM.PN.HOSP ---
Subjective Subjective Doing well, feels like she is breathing a bit better today. Objective Data Objective Data Vital Signs: Vital Signs Temp Pulse Resp BP Pulse Ox O2 Del Method O2 Flow Rate 98.1 F 107 H 19 H 129/69 H 96 Nasal Cannula 2.5 07/22/23 10:15 07/22/23 10:15 07/22/23 10:15 07/22/23 10:15 07/22/23 10:15 07/22/23 10:15 07/22/23 10:15 Oxygen Flow Rate (L/min) 2.5 Oxygen Delivery Method Nasal Cannula Weight: 155 lb 10.342 oz Body Mass Index (BMI) 26.5 Intake & Output: Intake and Output for Last 24 Hours 07/21/23 07/22/23 07/23/23 03:59 03:59 03:59 Intake Total 3205 / 3205 2731.16 / 2731.16 Balance 3205 / 3205 2731.16 / 2731.16 Lab / Micro Data 07/21/23 06:38 07/21/23 06:38 Micro: Microbiology 07/21/23 11:30 Sputum, Expectorated/Coughed Gram Stain - Final 07/20/23 03:15 Mucosa - Nose SARS-CoV-2, Influenza & RSV (PCR) - Final Rhythm Strip Rhythm Strip: Sinus Tach Rate: 128 Ectopy: None Physical Exam Narrative General: Alert, Oriented x3, Cooperative, No apparent distress HEENT: Atraumatic, PERRLA, EOMI, Normocephalic Oral: Moist Mucosa Neck: Supple, No JVD Lungs: Diminished, improved air movement, No rhonchi, wheeze, No rales Cardiovascular: Tachycardic, Regular Rhythm, Normal S1, Normal S2, No murmurs Abdomen: Soft, Non Tender, Non-Distended, No Hepato-splenomegaly Extremities: No edema, Capillary Refill Less than 3 Seconds Skin: No rashes, No breakdown Musculoskeletal: No Tenderness to Palpation of Joints or Extremities Neurological: No focal neurological deficits, Motor Exam 5/5 strength throughout, Sensory exam intact to light touch and pain Psych/Mental Status: Normal Affect, Appropriate Assessment & Plan Assessment/Plan (1) COPD with acute exacerbation: (2) Viral URI with cough: (3) Respiratory insufficiency: PLAN: Plan 1. Acute COPD exacerbation with chronic hypoxic respiratory failure/tobacco abuse/history of non-small cell lung cancer ?Continue with IV steroids as well as breathing treatments ? Will attempt to get a sputum culture though she has been on doxycycline for 24 hours ? She feels short of breath but she is at her baseline oxygen requirements ? Will obtain an ambulatory pulse ox today just to gauge as to where we are at in her course as 1 was not done yesterday ? She would like a Nicorette gum on discharge she has the patch and the lozenge at home ? She is status post right lobectomy for her lung cancer ? Discussed tobacco cessation 2. Essential HTN ? Blood pressure stable ? Continue with verapamil ? Will monitor make adjustments as necessary 3. Anxiety/depression ? Stable ? Continue with home medications 4. GERD ? Stable ? Continue with PPI DVT: Lovenox Charges/Coding Visit Charges Inpatient E&M: 99006 Subs Hosp L2
--- NOTE | 2023-07-22 16:03 | DCINST_ITS ---
Discharge Instructions Diet Discharge Diet: Low fat / Low cholesterol Activity Discharge Activity: Return to Normal Activity Dressing / Incision Call your doctor if you observe: Fever of 101 or Higher, Shortness of breath, Dizziness, Fainting spells, Swelling in the ankles, Chest pain and Increased palpitations (irregular heartbeat) Follow Up Care Test Results: Test results from this visit will be discussed in further detail at your follow- up appointment, if applicable. Discharge Plan Admission Admit Date/Time: 07/20/23 04:25 Attending Provider: Jan Bolanos Primary Care Provider: Arnulfo Fall Consulting Providers: José Cunningham Discharge Orders/Prescriptions Prescriptions: New levofloxacin 750 mg tablet 750 mg PO DAILY Qty: 5 0RF prednisone 10 mg tablet 10 mg PO DAILY Qty: 32 0RF Rx Instructions: Take 4 tablets daily for 3 days then 3 tablets daily for 3 days then 2 tablets daily for 3 days then 1 tablet daily for 3 days then half tablet daily for 4 days. Continued cyclobenzaprine 10 MG tablet 10 mg PO Q12H 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 omeprazole 20 MG capsule 20 mg PO DAILY Patient Comments: ACID REFLUX MEDICATION verapamil 240 MG tablet 360 mg PO DAILY Patient Comments: HEART MEDICATION montelukast 10 MG tablet 10 mg PO DAILY Patient Comments: ANTI-HISTAMINE albuterol sulfate [Ventolin HFA] 1 INHALER inhaler 1 - 2 puff inhalation Q4H PRN PRN (Reason: Bronchodialation) Patient Comments: COPD/SHORTNESS OF BREATH fluticasone propionate 1 SPRAY spray,suspension 1 spray intranasal DAILY Patient Comments: NASAL SPRAY TO HELP CONGESTION tiotropium bromide [Spiriva with HandiHaler] 1 PUFF inhaler 1 puff inhalation DAILY Patient Comments: INHALER FOR COPD sertraline 100 MG tablet 100 mg PO DAILY Patient Comments: mood enhancement Oxygen, Home [Home Oxygen] 2.5 lpm NASAL PRN PRN (Reason: Dyspnea) Patient Comments: oxygen fluticasone propion-salmeterol [Advair Diskus] 1 PUFF inhaler 1 puff inhalation BID Qty: 1 0RF Patient Comments: nasal congestion hydrocodone-acetaminophen 1 EACH tablet 7.5 - 325 mg PO Q6H PRN PRN (Reason: Pain) Patient Comments: pain Ropinirole Hcl 0.25 MG tablet 0.25 mg PO QHS Patient Comments: restless legs prednisone 10 MG tablet 15 mg PO PRN PRN (Reason: FLARE UPS) Patient Comments: steroid for inflammation ipratropium-albuterol 3 ML solution for nebulization 3 ml inhalation Q4HWA.RT Qty: 30 0RF guaifenesin [Mucus Relief ER] 600 MG tablet 600 mg PO BID 0RF lorazepam 0.5 MG tablet 0.5 mg PO QHS Qty: 7 0RF Referrals / Follow Up: Arnulfo Fall MD [Primary Care Provider] - 1 Week if not improving Disposition Disposition (needs filled in before D/C Order can be placed): Home, Self Care
--- NOTE | 2023-07-22 16:12 | PCM.DC.SUM ---
Providers Date of Admission: 07/20/23 Primary Care Physician: Dr. Arnulfo Fall MD Reason For Visit: ACUTE EXACERBATION OF COPD WITH [id number] Diagnosis Discharge Diagnosis (1) COPD with acute exacerbation: Status: Chronic Code(s): J44.1 - Chronic obstructive pulmonary disease with (acute) exacerbation (2) Viral URI with cough: Status: Acute Code(s): J06.9 - Acute upper respiratory infection, unspecified (3) Respiratory insufficiency: Status: Acute Code(s): R06.89 - Other abnormalities of breathing Medications at Discharge Home Medications albuterol sulfate 90 mcg/actuation aerosol inhaler (Ventolin HFA) 1 - 2 puff inhalation Q4H PRN PRN Bronchodialation 04/18/13 cyclobenzaprine 10 mg tablet 10 mg PO Q12H pain 04/18/13 fluticasone propionate 50 mcg/actuation nasal spray,suspension 1 spray intranasal DAILY nasal congestion 04/18/13 montelukast 10 mg tablet 10 mg PO DAILY allergies 04/18/13 omeprazole 20 mg capsule,delayed release 20 mg PO DAILY heart burn 04/18/13 tiotropium bromide 18 mcg capsule with inhalation device (Spiriva with HandiHaler) 1 puff inhalation DAILY wheezing 04/18/13 verapamil 240 mg tablet,extended release 360 mg PO DAILY heart 04/18/13 Oxygen, Home [Home Oxygen] 2.5 lpm PRN PRN Dyspnea 10/22/13 sertraline 100 mg tablet 100 mg PO DAILY insomina 10/22/13 fluticasone 500 mcg-salmeterol 50 mcg/dose blistr powdr for inhalation (Advair Diskus) 1 puff inhalation BID shortness of breath ##1 10/26/13 Ropinirole Hcl 0.25 mg PO QHS restless legs 09/23/14 hydrocodone 7.5 mg-acetaminophen 325 mg tablet 7.5 - 325 mg PO Q6H PRN PRN Pain 09/23/14 prednisone 10 mg tablet 15 mg PO PRN PRN FLARE UPS 04/03/15 guaifenesin 600 mg tablet, extended release 12 hr (Mucus Relief ER) 600 mg PO BID congestion 05/13/16 ipratropium 0.5 mg-albuterol 3 mg (2.5 mg base)/3 mL nebulization soln 3 ml inhalation Q4HWA.RT wheezing ##30 05/13/16 lorazepam 0.5 mg tablet 0.5 mg PO QHS anxiety #7 tabs 05/05/20 levofloxacin 750 mg tablet 750 mg PO DAILY #5 tabs 07/22/23 nicotine (polacrilex) 2 mg gum (Nicorette) 2 mg buccal Q2H #20 ea 07/22/23 prednisone 10 mg tablet 10 mg PO DAILY #32 tabs 07/22/23 Hospital Course Operations None Procedures None Summary of Care Provided Minutes Spent on Discharge: 38 Hospital Course: Per HPI: DENIA GONZALEZ, is a 68 F with a past medical history of essential hypertension, overweight; with BMI of 27.2 this admission, history of ongoing tobacco abuse; with subsequent steroid-dependent COPD, chronic hypoxic respiratory failure; on 2.5L NC, history of non-small cell lung cancer; s/p Right lobectomy, RLS, depression with anxiety, GERD and OA who presents to [facility] complaining of shortness of breath, wheezing and cough with green sputum. Ms. Gonzalez reports her symptoms began approximately 2 days prior to admission with a gradual onset of dyspnea on exertion that progressed to shortness of breath at rest. She had noticed rapidly developing upper respiratory infection symptoms and spite of her 50 mg of prednisone every other day, increased use of her nebulizers and a Z-Alban started by her primary care physician yesterday. She admits to subjective fevers and worsening cough and wheezing that caused her to activate EMS. She denies associated chills, nausea, vomiting, leg pain, leg swelling, chest pain or hemoptysis. She admits her symptoms are similar to her previous COPD exacerbations. In the ER she was diagnosed with acute exacerbation of COPD with clinical evidence of [id number] hypoxic respiratory insufficiency likely due to recent viral URI in the setting of ongoing tobacco abuse and she was then admitted to the general medical floor for ongoing care for stay that is expected to be greater than 48 hours. Hospital Course: 1. Acute COPD exacerbation with chronic hypoxic respiratory failure/tobacco abuse/history of non-small cell lung cancer?68-year-old female who periodically takes steroids depending on a flareup of her COPD presented to the hospital with increasing shortness of breath. She was found to have a COPD exacerbation, initially she was not moving a lot of air and had significant wheezing. Today she said that she felt much better and asked if she could go home. We discussed the need for amatory pulse ox, at around 3 PM she felt that she did not have a ride and that she would be okay to go home tomorrow and then reverse course and asked if she can go home right now. I discussed with her the possibility for discharge she expressed understanding Solo of is going home and she would still like to go home. Her sputum culture did come back positive for strep agalactiae as well as a gram-negative clementina I did elect to discharge her on Levaquin for 5 days and will attempt to follow-up with the sputum cultures to see if any antibiotic adjustments would be necessary. Will place her on prolonged steroid taper and I discussed with her specific reasons why to return to the hospital. I do ask that she follow-up with her PCP in 3 to 5 days. She also asked for a prescription for Nicorette gum as she has the patches and lozenges at home. 2. Essential hypertension, anxiety, depression, GERD are all chronic medical conditions which complicate her care. Her home medications were continued where appropriate Physical Exam Narrative General: Alert, Oriented x3, Cooperative, No apparent distress HEENT: Atraumatic, PERRLA, EOMI, Normocephalic Oral: Moist Mucosa Neck: Supple, No JVD Lungs: Diminished, improved air movement, No rhonchi, wheeze, No rales Cardiovascular: Tachycardic, Regular Rhythm, Normal S1, Normal S2, No murmurs Abdomen: Soft, Non Tender, Non-Distended, No Hepato-splenomegaly Extremities: No edema, Capillary Refill Less than 3 Seconds Skin: No rashes, No breakdown Musculoskeletal: No Tenderness to Palpation of Joints or Extremities Neurological: No focal neurological deficits, Motor Exam 5/5 strength throughout, Sensory exam intact to light touch and pain Psych/Mental Status: Normal Affect, Appropriate Weight / BMI Weight Weight: 155 lb 10.342 oz Body Mass Index (BMI) 26.5 ABG / Lab / Microbiology Data 07/21/23 06:38 07/21/23 06:38 Microbiology: Microbiology 07/21/23 11:30 Sputum, Expectorated/Coughed Gram Stain - Final 07/21/23 11:30 Sputum, Expectorated/Coughed Respiratory Culture - Preliminary Streptococcus agalactiae (B) Gram negative clementina 07/20/23 03:15 Mucosa - Nose SARS-CoV-2, Influenza & RSV (PCR) - Final D/C Instructions Discharge Diet: Low fat / Low cholesterol Call your doctor if you observe: Fever of 101 or Higher, Shortness of breath, Dizziness, Fainting spells, Swelling in the ankles, Chest pain and Increased palpitations (irregular heartbeat) Meaningful Use Info Meaningful Use Diagnoses (Choose all that apply): None applicable Discharge Plan Admission Admit Date/Time: 07/20/23 04:25 Attending Provider: Jan Bolanos Primary Care Provider: Arnulfo Fall Consulting Providers: José Cunningham Discharge Orders/Prescriptions Prescriptions: New levofloxacin 750 mg tablet 750 mg PO DAILY Qty: 5 0RF prednisone 10 mg tablet 10 mg PO DAILY Qty: 32 0RF Rx Instructions: Take 4 tablets daily for 3 days then 3 tablets daily for 3 days then 2 tablets daily for 3 days then 1 tablet daily for 3 days then half tablet daily for 4 days. nicotine (polacrilex) [Nicorette] 2 mg gum 2 mg buccal Q2H Qty: 20 0RF Continued cyclobenzaprine 10 MG tablet 10 mg PO Q12H 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 omeprazole 20 MG capsule 20 mg PO DAILY Patient Comments: ACID REFLUX MEDICATION verapamil 240 MG tablet 360 mg PO DAILY Patient Comments: HEART MEDICATION montelukast 10 MG tablet 10 mg PO DAILY Patient Comments: ANTI-HISTAMINE albuterol sulfate [Ventolin HFA] 1 INHALER inhaler 1 - 2 puff inhalation Q4H PRN PRN (Reason: Bronchodialation) Patient Comments: COPD/SHORTNESS OF BREATH fluticasone propionate 1 SPRAY spray,suspension 1 spray intranasal DAILY Patient Comments: NASAL SPRAY TO HELP CONGESTION tiotropium bromide [Spiriva with HandiHaler] 1 PUFF inhaler 1 puff inhalation DAILY Patient Comments: INHALER FOR COPD sertraline 100 MG tablet 100 mg PO DAILY Patient Comments: mood enhancement Oxygen, Home [Home Oxygen] 2.5 lpm NASAL PRN PRN (Reason: Dyspnea) Patient Comments: oxygen fluticasone propion-salmeterol [Advair Diskus] 1 PUFF inhaler 1 puff inhalation BID Qty: 1 0RF Patient Comments: nasal congestion hydrocodone-acetaminophen 1 EACH tablet 7.5 - 325 mg PO Q6H PRN PRN (Reason: Pain) Patient Comments: pain Ropinirole Hcl 0.25 MG tablet 0.25 mg PO QHS Patient Comments: restless legs prednisone 10 MG tablet 15 mg PO PRN PRN (Reason: FLARE UPS) Patient Comments: steroid for inflammation ipratropium-albuterol 3 ML solution for nebulization 3 ml inhalation Q4HWA.RT Qty: 30 0RF guaifenesin [Mucus Relief ER] 600 MG tablet 600 mg PO BID 0RF lorazepam 0.5 MG tablet 0.5 mg PO QHS Qty: 7 0RF Referrals / Follow Up: Arnulfo Fall MD [Primary Care Provider] - 1 Week if not improving Disposition Disposition (needs filled in before D/C Order can be placed): Home, Self Care Charges/Coding Visit Charges Inpatient E&M: 70844 Disch Hosp >30min
== END 2023-07-22 18:08 | disposition home or self-care (01) | DRG 191 ==
LOC: ED 04:13 → MS3 04:33
PROVIDERS: Admitting Provider Internal Medicine; Emergency Provider Emergency Medicine; PCP Family Medicine; Visit Provider Family Medicine
DX: J44.1 Chronic obstructive pulmonary disease with (acute) exacerbation (principal); J96.11 Chronic respiratory failure with hypoxia; Z99.81 Dependence on supplemental oxygen; I10 Essential (primary) hypertension; F32.A Depression, unspecified; G25.81 Restless legs syndrome; K21.9 Gastro-esophageal reflux disease without esophagitis; F41.9 Anxiety disorder, unspecified; B95.1 Streptococcus, group B, as the cause of diseases classified elsewhere; E66.3 Overweight; Z68.27 Body mass index [BMI] 27.0-27.9, adult; Z90.2 Acquired absence of lung [part of]; Z79.51 Long term (current) use of inhaled steroids; Z79.52 Long term (current) use of 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; Z79.899 Other long term (current) drug therapy; Z85.118 Personal history of other malignant neoplasm of bronchus and lung; Z87.891 Personal history of nicotine dependence
CPT/HCPCS: 36415; 71045; 80048; 80053; 83735; 84100; 84443; 85025; 87070; 87077; 87184; 87186; 87205; 87631; 93005; 94640; 94668; 94762; 97110; 97161; 97530; 99252; 99285; J7030; J7040; A4216; G0463

== ENCOUNTER 2023-10-18 00:57 | Emergency (ER) | payer MEDICARE, MEDICAID, SELFPAY ==
[2023-10-18] VITALS (9 sets, daily range): BP systolic 130–157; BP diastolic 65–76; PULSE 114–132; RESP 20–30; TEMP 36.2–36.8; O2SAT 88–96; BMI 27.3
--- NOTE | 2023-10-18 01:16 | RAD_ITS ---
INDICATION: dyspnea EXAMINATION/TECHNIQUE: X-RAY - XR Chest 2 Views COMPARISON: None. FINDINGS: LINES/DEVICES: None. LUNGS: Hyperinflated. Prominent interstitial markings especially at the lung bases. No consolidation. Small bilateral pleural effusions greater on the right, versus pleural thickening. No pneumothorax. Surgical clips overlying the right mid chest. MEDIASTINUM: Aorta is tortuous and atherosclerotic. CARDIAC SILHOUETTE: Not enlarged. BONES AND SOFT TISSUES: No acute abnormalities. RAD/Chest PA and Lateral IMPRESSION: Findings suggest COPD. Small bilateral pleural effusions versus pleural thickening. No acute infiltrates. Electronically Signed: Nona Aj MD at 2:43 EDT ,
[2023-10-18] MEDS: MethylPREDNISolone 125 MG/2 ML Vial IV (01:25)
[2023-10-18] MEDS: Ipratropium/Albuterol Sulfate 3 ML AMPUL.NEB INHALATION (01:25)
[2023-10-18] MEDS: Albuterol 2.5 MG/3 ML VIAL.NEB. INHALATION (01:25)
[2023-10-18] MEDS: LORazepam 2 MG/ML Syringe 0.5 MG IV (01:26)
--- NOTE | 2023-10-18 01:45 | EKG12_ITS ---
Test Reason : SOB Blood Pressure : / mmHG Vent. Rate : 130 BPM Atrial Rate : 130 BPM P-R Int : 150 ms QRS Dur : 076 ms QT Int : 304 ms P-R-T Axes : 086 034 078 degrees QTc Int : 447 ms Sinus tachycardia Right atrial enlargement Borderline ECG Confirmed by Junito Madrid ([id number]), subeditor LEORA RESTREPO ([id number]) on 10/19/2023 8:02:54 AM Referred By: RUTH Confirmed By:Junito Madrid
[2023-10-18 01:49] LABS: Absolute Neutrophil Count 9.9 X10^3/uL (2.0-7.7); Basophil# 0.04 X10^3/uL; Basophil% 0.3 % (0-1); Eosinophil# 0.03 X10^3/uL; Eosinophils% 0.2 % (0-5); Hematocrit 41.2 % (37-47); Hemoglobin 13.1 g/dL (12.0-15.0); Lymphocyte % 16.2 % (19-41); Mean Corp Hgb Conc 31.8 g/dL (32-36); Mean Corpuscular Hgb 26.9 pg (27.0-32.0); Mean Corpuscular Volume 84.6 fL (81-99); Mean Platelet Vol. 9.5 fl (6.2-12.0); Monocyte# 0.93 X10^3/uL; Monocyte% 7.2 % (0-10); NRBC Flagged by Analyzer 0 % (0-5); Neutrophil # 9.85 X10^3/uL (2.7-7.7); Neutrophil % 75.8 % (47-70); Platelet Count 272 K/mm3 (150-450); RBC Distribution Width CV 13.6 % (11.6-14.6); RBC Distribution Width SD 42.2 fl (35.1-43.9); Red Blood Count 4.87 M/mm3 (4.2-5.4)
[2023-10-18 02:12] LABS: Anion Gap 10 (5-15); BUN 23 mg/dL (7-18); BUN/Creat Ratio 34.7 RATIO (10-20); Calcium,Total 9.2 mg/dL (8.5-10.1); Chloride 99 mmol/L (98-107); Creatinine, Serum 0.66 mg/dL (0.55-1.02); EST Glomerular Filtration Rate 94 mL/min (>60); Est Glom Filt Rate - Afr Amer 114 mL/min (>60); Estimated Creatinine Clearance 65.56 ml/min; Glucose 80 mg/dL (74-106); Magnesium 1.9 mg/dL (1.6-2.6); Potassium 3.8 mmol/L (3.5-5.1); Sodium Level 138 mmol/L (136-145)
[2023-10-18 02:18] LABS: BNP,B-Type NATRIURETIC PEPTIDE 128.6 pg/mL (0-100)
--- NOTE | 2023-10-18 03:26 | EDS_ITS ---
HPI History of Present Illness Chief Complaint: Shortness of Breath Informant: patient and EMS Narrative Narrative: Patient is a 68-year-old female with past medical history of tobacco abuse as well as non-small cell lung cancer and COPD who wears 2 L of oxygen 16/11. She reports secondary to COPD she coughs daily. She states however this evening she felt like her cough and shortness of breath were more intense and that despite using her home medications and oxygen she was feeling persistent short of breath and therefore comes in for evaluation. She denies any known sick contacts and she denies any chest pain associated with this. [facility] Medical History (Updated 10/18/23 @ 05:[address] Riley Jeff, DO) Anxiety Depression Smoker On home oxygen therapy Asthma Hypertension Migraines Home Medications ?Medication ?Instructions ?Recorded ?Last Taken ?Type albuterol sulfate 90 mcg/actuation 1 - 2 puff inhalation Q4H PRN PRN 04/18/13 09/23/14 History aerosol inhaler (Ventolin HFA) Bronchodialation cyclobenzaprine 10 mg tablet 10 mg PO Q12H pain 04/18/13 09/23/14 History 10 MG fluticasone propionate 50 1 spray intranasal DAILY nasal 04/18/13 09/23/14 History mcg/actuation nasal congestion spray,suspension montelukast 10 mg tablet 10 mg PO DAILY allergies 04/18/13 09/23/14 History 10 MG omeprazole 20 mg capsule,delayed 20 mg PO DAILY heart burn 04/18/13 09/23/14 History release 20 MG tiotropium bromide 18 mcg capsule 1 puff inhalation DAILY wheezing 04/18/13 09/23/14 History with inhalation device (Spiriva with HandiHaler) verapamil 240 mg tablet,extended 360 mg PO DAILY heart 04/18/13 09/23/14 History release 360 MG Oxygen, Home [Home Oxygen] 2.5 lpm PRN PRN Dyspnea 10/22/13 09/23/14 History sertraline 100 mg tablet 100 mg PO DAILY insomina 10/22/13 09/23/14 History fluticasone 500 mcg-salmeterol 50 1 puff inhalation BID shortness of 10/26/13 09/23/14 Rx mcg/dose blistr powdr for breath ##1 inhalation (Advair Diskus) Ropinirole Hcl 0.25 mg PO QHS restless legs 09/23/14 Unknown History prednisone 10 mg tablet 15 mg PO PRN PRN FLARE UPS 04/03/15 Unknown History ipratropium 0.5 mg-albuterol 3 mg 3 ml inhalation Q4HWA.RT wheezing 05/13/16 Unknown Rx (2.5 mg base)/3 mL nebulization ##30 soln lorazepam 0.5 mg tablet 0.5 mg PO QHS anxiety #7 tabs 05/05/20 Unknown Rx nicotine (polacrilex) 2 mg gum 2 mg buccal Q2H #20 ea 07/22/23 Unknown Rx (Nicorette) azithromycin 250 mg tablet See Rx Instructions PO .COMPLEX #6 10/18/23 Unknown Rx (Zithromax) tabs cholecalciferol (vitamin D3) 50 50 mcg PO DAILY 10/18/23 Unknown History mcg (2,000 unit) capsule (Vitamin D3) ipratropium 0.5 mg-albuterol 3 mg 3 ml inhalation Q6H PRN shortness 10/18/23 Unknown Rx (2.5 mg base)/3 mL nebulization of breath or wheezing #180 mL soln prednisone 20 mg tablet 40 mg (2 x 20 mg) PO DAILY 5 days 10/18/23 Unknown Rx #10 tabs Allergy/AdvReac Type Severity Reaction Status Date / Time No Known Allergies Allergy Verified 07/20/23 02:54 Surgical History History of cholecystectomy Social History Smoking Status: Former smoker ROS ROS ED Constitutional Constitutional ED: Denies chills or fever(s) ENT ENT ED: Denies rhinorrhea or sore throat Cardiovascular Cardiovascular: Reports racing heartbeat; Denies chest pain or palpitations Respiratory/Chest Respiratory/Chest: Reports cough; Denies dyspnea Gastrointestinal Gastrointestinal: Denies abdominal pain, diarrhea, nausea or vomiting Genitourinary Genitourinary ED: Denies dysuria Musculoskeletal Musculoskeletal: Reports myalgias Integumentary Denies rash Neurologic Neurologic: Denies headache(s) Psychiatric Psychiatric: Reports anxiety Hematologic/Lymphatic Hematologic/Lymphatic: Denies easy bleeding or easy bruising EXAM Physical Exam Const Vital Signs: 10/18/23 00:58 10/18/23 01:03 10/18/23 01:10 Temperature 97.2 F L 97.2 F L Temperature Source Temporal Temporal Pulse Rate 132 H 130 H Respiratory Rate 24 H 24 H Respiratory Effort Normal Respiratory Depth Shallow Respiratory Pattern Blood Pressure 135/76 H Blood Pressure Mean 95 Pulse Ox 90 90 Oxygen Delivery Method Nasal Cannula Nasal Cannula Nasal Cannula Oxygen Flow Rate (L/min) 3 3 3 10/18/23 01:34 10/18/23 01:45 10/18/23 01:45 Temperature Temperature Source Pulse Rate 122 H 123 H Respiratory Rate 26 H 30 H Respiratory Effort Respiratory Depth Respiratory Pattern Tachypnea Blood Pressure 157/67 H 157/67 H Blood Pressure Mean 85 85 Pulse Ox 90 Oxygen Delivery Method Nasal Cannula Oxygen Flow Rate (L/min) 3 10/18/23 03:00 10/18/23 03:19 10/18/23 03:43 Temperature 98.3 F 98.3 F Temperature Source Oral Pulse Rate 114 H 119 H Respiratory Rate 20 H 20 H Respiratory Effort Respiratory Depth Respiratory Pattern Blood Pressure 131/73 H 131/73 H 130/65 H Blood Pressure Mean 91 92 86 Pulse Ox 88 90 92 Oxygen Delivery Method Nasal Cannula Nasal Cannula Oxygen Flow Rate (L/min) 3 3 10/18/23 04:00 Temperature Temperature Source Pulse Rate 116 H Respiratory Rate 20 H Respiratory Effort Respiratory Depth Respiratory Pattern Blood Pressure Blood Pressure Mean Pulse Ox 96 Oxygen Delivery Method Nasal Cannula Oxygen Flow Rate (L/min) 3 Positive well developed and unkempt Constitutional Narrative: Patient has mild respiratory distress with tachypnea and slight accessory muscle use General Appearance ED: unkempt, well developed and pallor HEENT Reports dry mucous membranes HEENT Narrative: Mucous membranes are dry and tacky without tongue or lip swelling oral lesions or airway edema or compromise Mouth ED: Yes dry mucous membranes Mouth: dry mucous membranes Eyes PERRL and EOMs intact bilaterally General Eye ED: Negative for pale conjunctiva or scleral icterus Neck supple and no JVD Neck Narrative: Trachea is midline. No crepitance noted Chest Wall palpation of chest normal Chest Narrative: No bony deformity or crepitance with palpation of the chest wall Resp Resp Narrative: Patient is in mild respiratory distress with tachypnea and slight accessory muscle use. Breath sounds are diminished throughout with diffuse expiratory wheezing and patient also has a combination of crackles and rhonchi in the bilateral lower lobes Cardio regular rhythm Rate: tachycardic and other Other Details: Tachycardic rate with regular rhythm Radial and carotid pulses are equal and symmetric GI normal to inspection, nondistended, normoactive bowel sounds, non-tender, non- distended and no masses GI Narrative: No voluntary guarding or rigidity or pulsatile mass No fluid wave noted Auscultation: normoactive bowel sounds Palpation: soft Extremity Extremity Narrative: Trace pitting edema to the bilateral lower extremities that is equal and symmetric Negative Homans' sign bilaterally Neuro oriented x3, CN's II-XII intact bilaterally and no sensory deficits noted Sensorium / Orientation: alert Motor Exam: strength 5/5 throughout Psych Psych Narrative: Patient has a nervous/anxious affect Appearance: unkempt Skin no rashes or lesions noted General Skin Exam: pallor; Negative for jaundice MDM MDM MDM Narrative Medical decision making narrative: Patient arrived to the ER tachycardic and in mild respiratory distress. She was satting approximately 89 to 90% on her normal 2 L. She has a longstanding history of smoking and COPD but states she recently quit approximately 4 days ago. Differential diagnosis is for COPD exacerbation versus pneumonia versus congestive heart failure/pleural effusion versus acute blood loss anemia or v iral infection such as COVID versus influenza versus RSV. Basic lab work was obtained and shows slight leukocytosis at 13 but otherwise no clinically significant finding. H&H is stable going against acute blood loss anemia. Chest x-ray revealed findings consistent with COPD but no acute pneumonia or significant/large pleural effusions or pneumothorax. Patient was given IV Solu- Medrol as well as DuoNeb and albuterol and IV Ativan to help relax smooth muscle. With treatment her work of breathing reduced and breath sounds improved. The patient has oxygen available at home and states she also has a nebulizer. At this time her work of breathing is mild her pulse ox is 92 to 93% which is appropriate for someone with COPD on chronic oxygen. She does not have acute blood loss anemia or acute kidney injury or severe electrolyte derangement. There is no pneumonia or pneumothorax or signs of septicemia. Therefore she is not requiring a significantly higher amount of oxygen than her baseline and her work of breathing is minimal I do not feel that she would benefit from placement in the ER as treatment would be the same as she can provide at home and she is otherwise safe for discharge History & Record Review Discussion w/independent historian: Patient Lab Data Attestation: I reviewed the patient's lab results. Labs: Laboratory Results - last 24 hr 10/18/23 01:10 WBC 13.0 H RBC 4.87 Hgb 13.1 Hct 41.2 MCV 84.6 MCH 26.9 L MCHC 31.8 L RDW Std Deviation 42.2 RDW Coeff of [place] 13.6 Plt Count 272 MPV 9.5 Immature Gran % (Auto) 0.300 Neut % (Auto) 75.8 H Lymph % (Auto) 16.2 L [place] % (Auto) 7.2 Eos % (Auto) 0.2 Baso % (Auto) 0.3 Absolute Neuts (auto) 9.9 H Absolute Lymphs (auto) 2.10 Nucleated RBC % 0 Sodium 138 Potassium 3.8 Chloride 99 Carbon Dioxide 29.0 Anion Gap 10 BUN 23 H Creatinine 0.66 Estim Creat Clear Calc 65.56 Est GFR (MDRD) Af Amer 114 Est GFR (MDRD) Non-Af 94 BUN/Creatinine Ratio 34.7 H Glucose 80 Calcium 9.2 Magnesium 1.9 B-Natriuretic Peptide 128.6 H Radiography Diagnostic Testing: Clinical Impression(s) from Imaging Studies Chest X-Ray 10/18/23 01:16 IMPRESSION: Findings suggest COPD. Small bilateral pleural effusions versus pleural thickening. No acute infiltrates. Electronically Signed: Nona Aj MD at 2:43 EDT , Chest x-ray as interpreted by the emergency medicine physician reveals small bilateral pleural effusions without infiltrate or pneumothorax Discharge Plan Triage Chief Complaint: Shortness of Breath ED Provider: Riley Jeff Dx/Rx/DC Orders Clinical Impression: Acute exacerbation of chronic obstructive pulmonary disease, Tobacco use, Benign essential hypertension Instructions: COPD: Wheezing and Chest Tightness Prescriptions: New prednisone 20 mg tablet 40 mg PO DAILY 5 Days Qty: 10 0RF azithromycin [Zithromax] 250 mg tablet See Rx Instructions .ROUTE .COMPLEX Qty: 6 0RF Rx Instructions: For 250 mg dose pack: take 500 mg today (day 1), then 250 mg for 4 days (days 2-5) ipratropium-albuterol 0.5 mg-3 mg(2.5 mg base)/3 mL solution for nebulization 3 ml inhalation Q6H PRN (Reason: shortness of breath or wheezing) Qty: 180 0RF No Action cyclobenzaprine 10 MG tablet 10 mg PO Q12H 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 omeprazole 20 MG capsule 20 mg PO DAILY Patient Comments: ACID REFLUX MEDICATION verapamil 240 MG tablet 360 mg PO DAILY Patient Comments: HEART MEDICATION montelukast 10 MG tablet 10 mg PO DAILY Patient Comments: ANTI-HISTAMINE albuterol sulfate [Ventolin HFA] 1 INHALER inhaler 1 - 2 puff inhalation Q4H PRN PRN (Reason: Bronchodialation) Patient Comments: COPD/SHORTNESS OF BREATH fluticasone propionate 1 SPRAY spray,suspension 1 spray intranasal DAILY Patient Comments: NASAL SPRAY TO HELP CONGESTION tiotropium bromide [Spiriva with HandiHaler] 1 PUFF inhaler 1 puff inhalation DAILY Patient Comments: INHALER FOR COPD sertraline 100 MG tablet 100 mg PO DAILY Patient Comments: mood enhancement Oxygen, Home [Home Oxygen] 2.5 lpm NASAL PRN PRN (Reason: Dyspnea) Patient Comments: oxygen fluticasone propion-salmeterol [Advair Diskus] 1 PUFF inhaler 1 puff inhalation BID Qty: 1 0RF Patient Comments: nasal congestion Ropinirole Hcl 0.25 MG tablet 0.25 mg PO QHS Patient Comments: restless legs prednisone 10 MG tablet 15 mg PO PRN PRN (Reason: FLARE UPS) Patient Comments: steroid for inflammation ipratropium-albuterol 3 ML solution for nebulization 3 ml inhalation Q4HWA.RT Qty: 30 0RF lorazepam 0.5 MG tablet 0.5 mg PO QHS Qty: 7 0RF nicotine (polacrilex) [Nicorette] 2 mg gum 2 mg buccal Q2H Qty: 20 0RF cholecalciferol (vitamin D3) [Vitamin D3] 50 mcg (2,000 unit) capsule 50 mcg PO DAILY Primary Care Provider: Arnulfo Fall Referrals: Arnulfo Fall MD [Primary Care Provider] - Activity Restrictions/Additional Instructions: Please continue your home medications as directed by your doctor but add the prednisone for improved inflammation control and Z-Alban secondary to your COPD exacerbation. Continue with your breathing medications and add the DuoNeb to help with chest tightness and wheezing. You may increase your oxygen value to 3 to 4 L by nasal cannula if necessary for the next 5 to 7 days. Return to the ER should you have any further concerns Print Language: Albanian Disposition Disposition: Home, Self Care Discharge Date/Time: 10/18/23 04:33
[2023-10-18] MEDS: Azithromycin 250 MG Tablet 500 MG PO (03:41)
== END 2023-10-18 04:33 | disposition home or self-care (01) ==
PROVIDERS: Emergency Provider Emergency Medicine; PCP Family Medicine; Visit Provider Emergency Medicine
DX: R06.02 Shortness of breath (principal); I10 Essential (primary) hypertension; Z72.0 Tobacco use; Z85.118 Personal history of other malignant neoplasm of bronchus and lung; Z99.81 Dependence on supplemental oxygen; F41.9 Anxiety disorder, unspecified; F32.A Depression, unspecified; Z79.899 Other long term (current) drug therapy
CPT/HCPCS: 71046; 80048; 83735; 83880; 85025; 87631; 93005; 94640; 96374; 96375; 99282; A4216

== ENCOUNTER 2024-09-29 02:18 | Inpatient (IN) | payer MEDICARE, MEDICAID, SELFPAY ==
[2024-09-29] VITALS (20 sets, daily range): BP systolic 123–190; BP diastolic 65–97; PULSE 61–140; RESP 12–25; TEMP 36.6–37.3; O2SAT 82–97; BMI 27.0; BMI 26.1; BMI 25.9
[2024-09-29] MEDS: MethylPREDNISolone 125 MG/2 ML Vial IV (02:39)
--- NOTE | 2024-09-29 02:47 | RAD_ITS ---
PROCEDURE: CHEST PA AND LATERAL 09/29/2024 REASON FOR EXAM: DYSPNEA TECHNIQUE: Frontal and lateral views of the chest. COMPARISON: Chest radiographs on 10/18/2023 and 07/20/2023 FINDINGS: Hardware: None Heart: The heart size is normal. Mediastinum: The mediastinal contour is stable. Surgical clips in the right perihilar region. Lungs: Flattening of the hemidiaphragms. Chronic streaky opacity in the right upper lung zone. No new focal consolidation. No significant pleural effusion. Bones: Degenerative changes are identified within the thoracic spine. RAD/Chest PA and Lateral IMPRESSION: Stable appearance of the chest. Emphysematous changes without evidence of an a cute cardiopulmonary abnormality. Reading Location: [facility]
[2024-09-29 02:48] LABS: Absolute Neutrophil Count 8.4 X10^3/uL (2.0-7.7); Basophil# 0.02 X10^3/uL; Basophil% 0.2 % (0-1); Eosinophil# 0.07 X10^3/uL; Eosinophils% 0.7 % (0-5); Hematocrit 41.7 % (37-47); Hemoglobin 13.6 g/dL (12.0-15.0); Lymphocyte % 13.2 % (19-41); Mean Corp Hgb Conc 32.6 g/dL (32-36); Mean Corpuscular Hgb 27.9 pg (27.0-32.0); Mean Corpuscular Volume 85.5 fL (81-99); Mean Platelet Vol. 9.7 fl (6.2-12.0); Monocyte# 0.73 X10^3/uL; Monocyte% 6.9 % (0-10); NRBC Flagged by Analyzer 0 % (0-5); Neutrophil # 8.35 X10^3/uL (2.7-7.7); Neutrophil % 78.5 % (47-70); Platelet Count 198 K/mm3 (150-450); RBC Distribution Width CV 13.1 % (11.6-14.6); RBC Distribution Width SD 40.6 fl (35.1-43.9); Red Blood Count 4.88 M/mm3 (4.2-5.4); White Blood Count 10.6 K/mm3 (4.4-11.0)
--- OUTSIDE RECORDS SUMMARY | 2024-09-29 02:59 | XMS RPT_ITS | CCD ---
Author Organization [facility] Care Team Providers Care Divemaster Name Role Phone Yoseph Fall MD Primary Care Provider Dr. Yoseph Fall Primary Care Provider Dr. Dallas Mena Emergency Provider Dr. José Cunningham Admit Provider UnavailDr. José Carter Other Provider Unavailabl e Dr. Jan Bolanos Attending Provider Dr. Jan Bolanos Other Provider Yoseph Fall MD Primary Care Provider Yoseph Fall MD Primary Care Provider Yoseph Fall Primary Care Unavailable Jan Bolanso Attending Unavailable José Cunningham Consulting Unavailable José Cunningham Admitting Unavailable Jan Bolanos Consulting Unavailable Riley Jeff Attending Unavailable Yoseph Fall Primary Care Unavailable Yoseph Fall Primary Care Unavailable Jan Bolanos Attending Unavailable José Cunningham Admitting Unavailable José Cunningham Consulting Unavailable José Cunningham Attending Unavailable Naya MEND WORKER.Iman AVILA Unavailable Jt MEND WORKER.Nelson AVILA Unavailable YOSEPH FALL Attending Unavailable YOSEPH FALL Primary Care Unavailable YOSEPH FALL Attending Unavailable YOSEPH FALL Primary Care Unavailable YOSEPH FALL Attending Unavailable YOSEPH FALL Primary Care Unavailable YOSEPH FALL Attending Unavailable YOSEPH FALL Primary Care Unavailable Tannhodustin MEND WORKER.DWARF TREE GROWER, Iman Unavailable Unavail able Naya MEND WORKER.AUSTIN, Iman Unavailable Medications Current Medications Medication Drug Class(es) Dates Sig (Normalized) Sig (Original) acetaminophen 325 mg / HYDROcodone bitartrate 5 mg oral tablet (20 sources) Opioid Agonist Start: 06-15-2023 End: 09-14-2024 take 1 tablet by mouth twice daily as needed for pain HYDROcodone-acetam inophen (NORCO) 5-325 mg per tablet Indications: Chronic low back pain with sciatica, sciatica laterality unspecified, unspecified back pain laterality Take 1 tablet by mouth two times a day as needed for pain for up to 30 days. 30 tablet 08/15/2024 09/14/2024 Active Start: 07-17-2021 End: 05-20-2023 take 1 tablet by mouth twice daily as needed for pain HYDROcodone-acetaminophen (NORCO) 5-325 mg per tablet Indications: Chronic low back pain with sciatica, sciatica laterality unspecified, unspecified back pain laterality Take 1 tablet by mouth two times a day as needed for pain for up to 30 days. 33 tablet 0 02/19/2023 Active Start: 09-23-2014 take 7.5-325 mg by m outh every six hours as needed Hydrocodone-Acetaminophen Active 7.5 - 3 25 MG PO EVERY 6 HOURS NEEDED September 23, 2014 12:00am Comment on above: Take 1 tablet by richard th twice daily as needed for pain for up to 30 days. Take 1 tablet by richard th twice daily as needed for pain for up to 30 days. Do not start before March 19, 2022. Take 1 tablet by richard th twice daily as needed for pain for up to 30 days. Do not start before February 17, 2022. Take 1 tablet by richard th twice daily as needed for pain for up to 30 days. Do not start before July 17, 2022. Take 1 tablet by richard th twice daily as needed for pain for up to 30 days. Do not start before June 18, 2022. Take 1 tablet by richard th twice daily as needed for pain for up to 30 days. Do not start before May 20, 2022. Take 1 tablet by richard th twice daily as needed for pain for up to 30 days. Do not start before October 15, 2022. Take 1 tablet by richard th twice daily as needed for pain for up to 30 days. Do not start before September 15, 2022. Take 1 tablet by richard th twice daily as needed for pain for up to 30 days. Do not start before August 16, 2022. Take 1 tablet by richard th twice daily as needed for pain for up to 30 days. Do not start before January 11, 2023. Take 1 tablet by richard th twice daily as needed for pain for up to 30 days. Do not start before December 13, 2022. Take 1 tablet by richard th two times a day as needed for pain for up to 30 days. Do not start before March 21, 2023. Take 1 tablet by richard th two times a day as needed for pain for up to 30 days. Do not start before April 20, 2023. Take 1 tablet by richard th two times a day as needed for pain for up to 30 days. Take 1 tablet by richard th two times a day as needed for pain for up to 30 days. Do not start before August 13, 2023. Take 1 tablet by richard th two times a day as needed for pain for up to 30 days. Do not start before July 15, 2023. Take 1 tablet by richard th two times a day as needed for pain for up to 30 days. Do not start before June 15, 2023. [id number] 200 actuat albuterol 0.09 mg/actuat metered dose inhaler (20 sources) beta2-Adrenergic Agonist Start: 3 End: 4 take 2 puff(s) by inhalation every four hours as needed albuterol HFA (VENTOLIN HFA) 90 mcg/actuation inhaler Indications: Chronic obstructive pulmonary disease, unspecified COPD type (HCC) Inhale 2 Puffs as instructed every 4 hours as needed. 6.7 g 11 02/14/2024 Active Start: 08-15-2020 End: 09-30-2021 take 2 puff(s) by inhalation every four hours as needed albuterol HFA (VENTOLIN HFA) 90 mcg/actuation inhaler Indications: Chronic obstructive pulmonary disease, unspecified COPD type (HCC) Inhale 2 Puffs as instructed every 4 hours as needed. 6.7 g 11 09/30/2021 Active Start: 10-26-2013 End: 05-13-2016 take 2.5 mg by inhalation every two hours as needed Albuterol Sulfate Discontinued 2.5 MG INHALATION EVERY 2 HOURS NEEDED October 26, 2013 3:37pm May 13, 2016 11:48am Start: 04-18-2013 End: 10-26-2013 take 2.5 mg by inhalation every four hours as needed Albuterol Sulfate Discontinued 2.5 MG INHALATION EVERY 4 HOURS NEEDED April 18, 2013 1:00am October 26, 2013 3:38pm Start: 04-18-2013 take 1 puff(s) by in halation every four hours as needed Albuterol Sulfate (Ventolin Hfa) 1 INHALER inhaler Active 1 - 2 PUFF INHALATION EVERY 4 HOURS NEEDED April 18, 2013 1:00am Comment on above: Inhale 2 Puffs as in structed every 4 hours as needed. albuterol 0.833 mg/ml / ipratropium bromide 0.167 mg/ml inhalation solution (20 sources) Anticholinergic, beta2-Adrenergic Agonist Start: 04-13-2023 End: 08-29-2024 ipratropium-albuterol (DUONEB) 0.5 mg-3 mg(2.5 mg base)/3 mL nebu inhale 1 ampule via nebulizer every 4 hours if needed for wheezing. Use over 5 to 15 minutes 360 mL 2 08/29/2024 Active Start: 05-13-2016 End: 05-15-2022 ipratropium-albuterol (DUONE B) 0.5 mg-3 mg(2.5 mg base)/3 mL nebu inhale 1 ampule via nebulizer every 4 hours if needed for wheezing. Use over 5 to 15 minutes 360 mL 2 04/13/2023 Active Comment on above: inhale 1 ampule via nebulizer every 4 hours if needed for wheezing. Use over 5 to 15 minutes amoxicillin 875 mg oral tablet (3 sources) Penicillin-class Antibacterial Start: End: take 1 tablet by mouth twice daily amoxicillin (AMOXIL) 875 mg tablet Indications: Oral infection Take 1 tablet by mouth two times a day for 10 days. 20 tablet 03/22/2024 04/01/2024 Active Start: 02-04-2024 End: 02-14-2024 take 1 tablet by mouth twice daily amoxicillin (AMOXIL) 875 mg tablet Take 1 tablet by mouth two times a day for 10 days. 20 tablet 02/04/2024 02/14/2024 Active azithromycin 250 mg oral tablet (2 sources) Macrolide Antimicrobial Start: 10-22-2023 End: 10-27-2023 azithromycin (ZITHROMAX Z-DAHLIA) 250 mg tablet Take 2 tablets day one, then, 1 tablet daily until gone. 6 tablet 0 10/22/2023 10/27/2023 Active Start: 07-19-2023 End: 07-24-2023 azithromycin (ZITHROMAX Z-PA K) 250 mg tablet Take 2 tablets day one, then, 1 tablet daily until gone. 6 tablet 0 07/19/2023 07/24/2023 Active Comment on above: Take 2 tablets day o ne, then, 1 tablet daily until gone. busPIRone hydrochloride 10 mg oral tablet (15 sources) Start: 4 End: 5 take 1 tablet by mouth twice daily busPIRone (BUSPAR) 10 mg tablet Take 1 tablet by mouth two times a day. 60 tablet 2 06/22/2024 Active cholecalciferol 0.05 mg oral capsule (20 sources) Vitamin D Start: 2 End: 5 take 1 capsule by mouth once daily Cholecalciferol, Vitamin D3, 50 mcg (2,000 unit) cap Take 1 capsule by mouth once daily. 90 capsule 3 06/22/2024 Active Start: 07-17-2021 take 1 capsule by mo ut once daily Cholecalciferol, Vitamin D3, 50 mcg (2,000 unit) cap Take 1 capsule by mouth once daily. 30 capsule 5 07/17/2021 Active Comment on above: Take 1 capsule by mo ut once daily. COMPOUNDED PRESCRIPTION (20 sources) Start: 10-21-2015 COMPOUNDED PRESCRIPTION Indications: Essential hypertension, benign BLOOD PRESSURE CUFF FOR HOME USE. DX: HYPERTENSION I10. AUTOMATIC CUFF. 1 Each 0 10/21/2015 Active Start: 10-21-2015 COMPOUNDED PRE SCRIPTION Indications: Essential hypertension, benign Blood pressure monitor for home use. Dx: I10 1 Each 0 10/21/2015 Active Comment on above: BLOOD PRESSURE CUFF FOR HOME USE. DX: HYPERTENSION I10. AUTOMATIC CUFF. Blood pressure monit or for home use. Dx: I10 cyclobenzaprine hydrochloride 10 mg oral tablet (20 sources) Muscle Relaxant Start: 024 End: 025 take 1 tablet by mouth twice daily as needed for muscle spasms cyclobenzaprine (FLEXERIL) 10 mg tablet Indications: Generalized osteoarthrosis, involving multiple sites Take 1 tablet by mouth two times a day as needed for muscle spasm. 60 tablet 5 06/01/2024 Active Start: 05-07-2023 End: 10-01-2023 take 1 tablet by mouth twice daily as needed for muscle spasms cyclobenzaprine (FLEXERIL) 10 mg tablet Indications: Generalized osteoarthrosis, involving multiple sites Take 1 tablet by mouth two times a day as needed for muscle spasm. 60 tablet 5 05/07/2023 10/01/2023 Discontinued Start: 12-31-2021 End: 11-06-2022 take 1 tablet by mouth twice daily as needed for muscle spasms cyclobenzaprine (FLEXERIL) 10 mg tablet Indications: Generalized osteoarthrosis, involving multiple sites Take 1 tablet by mouth twice daily as needed for muscle spasm. 60 tablet 5 11/06/2022 Active Start: 07-17-2021 take 1 tablet by richard th twice daily as needed for muscle spasms cyclobenzaprine (FLEXERIL) 10 mg tablet Indications: Generalized osteoarthrosis, involving multiple sites Take 1 tablet by mouth twice daily as needed for muscle spasm. 60 tablet 5 07/17/2021 Active Start: 04-18-2013 take 10 mg by mouth every twelve hours Cyclobenzaprine Active 10 MG PO Q12H April 18, 2013 1:00am Comment on above: Take 1 tablet by richard th twice daily as needed for muscle spasm. Take 1 tablet by richard th two times a day as needed for muscle spasm. Disposable Gloves (DISPOSABLE LATEX-FREE GLOVES) [facility] [place] (20 sources) Start: 8 Disposable Gloves (DISPOSABLE LATEX-FREE GLOVES) [facility] [place] Indications: Generalized osteoarthrosis, involving multiple sites , Chronic obstructive pulmonary disease, unspecified COPD type (HCC) , Chronic low back pain with sciatica, sciatica laterality unspecified, unspecified back pain laterality 1 Box once every month. ICD 10: M15.9, J44.9, M54.40 1 Each 11 10/08/2017 Active Comment on above: 1 Box once every wed. ICD 10: M15.9, J44.9, M54.40 fluticasone propionate 0.05 mg/actuat metered dose nasal spray (20 sources) Corticosteroid Start: End: take 2 spray(s) by mouth once daily fluticasone (FLONASE) 50 mcg/actuation nasal spray use 2 sprays in each nostril daily. Rinse mouth after use 48 g 11 09/15/2023 Active Start: 04-18-2013 Fluticasone Pr opionate Active 1 SPRAY INTRANASAL DAILY April 18, 2013 1:00am Comment on above: use 2 sprays in each nostril daily. Rinse mouth after use fluticasone / salmeterol (20 sources) Corticosteroid, beta2-Adrenergic Agonist Start: 12-24-2023 take 1 puff(s) by mouth twice daily fluticasone-salmeter ol (ADVAIR DISKUS) 500-50 mcg/dose dsdv Inhale 1 Puff as instructed two times a day. Rinse and gargle mouth with water after use. 3 Each 3 12/24/2023 Active Start: 05-18-2023 End: 12-24-2023 take 1 puff(s) by mouth twice daily fluticasone-salmeterol (ADVAIR DISKUS) 500-50 mcg/dose dsdv Inhale 1 Puff as instructed two times a day. Rinse and gargle mouth with water after use. 3 Each 3 05/18/2023 12/24/2023 Discontinued Start: 05-18-2023 take 1 puff(s) by mo uth twice daily fluticasone-salmeterol (ADVAIR DISKUS) 500-50 mcg/dose dsdv Inhale 1 Puff as instructed two times a day. Rinse and gargle mouth with water after use. 3 Each 3 05/18/2023 Active Start: 03-17-2023 take 1 puff(s) by mo uth twice daily fluticasone-salmeterol (ADVAIR DISKUS) 500-50 mcg/dose dsdv Inhale 1 Puff as instructed two times a day. Rinse and gargle mouth with water after use. 3 Each 3 03/17/2023 Active Start: 01-15-2023 End: 03-17-2023 take 1 puff(s) by mouth twice daily fluticasone-salmeterol (ADVAIR DISKUS) 500-50 mcg/dose dsdv Inhale 1 Puff as instructed twice daily. Rinse and gargle mouth with water after use. 3 Each 3 01/15/2023 03/17/2023 Discontinued Start: 01-15-2023 take 1 puff(s) by mo [facility] twice daily fluticasone-salmeterol (ADVAIR DISKUS) 500-50 mcg/dose dsdv Inhale 1 Puff as instructed twice daily. Rinse and gargle mouth with water after use. 3 Each 3 01/15/2023 Active Start: 12-31-2021 End: 01-15-2023 take 1 puff(s) by mouth twice daily fluticasone-salmeterol (ADVAIR DISKUS) 500-50 mcg/dose dsdv Inhale 1 Puff as instructed twice daily. Rinse and gargle mouth with water after use. 3 Each 3 12/31/2021 01/15/2023 Discontinued Start: 12-31-2021 take 1 puff(s) by [facility] twice daily fluticasone-salmeterol (ADVAIR DISKUS) 500-50 mcg/dose dsdv Inhale 1 Puff as instructed twice daily. Rinse and gargle mouth with water after use. 3 Each 3 12/31/2021 Active Start: 04-21-2021 take 1 puff(s) by [facility] twice daily fluticasone-salmeterol (ADVAIR DISKUS) 500-50 mcg/dose dsdv Inhale 1 Puff as instructed twice daily. Rinse and gargle mouth with water after use. 3 Each 3 04/21/2021 Active Start: 04-21-2021 take 1 puff(s) by mo [facility] twice daily fluticasone-salmeterol (ADVAIR DISKUS) 500-50 mcg/dose dsdv Inhale 1 Puff as instructed twice daily. Rinse and gargle mouth with water after use. 3 Each 3 04/21/2021 Active Start: 10-26-2013 take 1 puff(s) by in halation twice daily Fluticasone Propion-Salmeterol (Advair Diskus) 1 PUFF inhaler Active 1 PUFF INHALATION TWICE A DAY October 26, 2013 3:37pm Start: 04-18-2013 End: 10-26-2013 take 1 puff(s) by inhalation twice daily Fluticasone Propion-Salmeterol (Advair Diskus) 1 PUFF inhaler Discontinued 1 PUFF INHALATION TWICE A DAY April 18, 2013 1:00am October 26, 2013 3:38pm Comment on above: Inhale 1 Puff as ins tructed twice daily. Rinse and gargle mouth with water after use. Inhale 1 Puff as ins tructed two times a day. Rinse and gargle mouth with water after use. guaiFENesin 600 mg oral tablet (2 sources) Start: 05-13-19 17 take 1 tablet by mouth twice daily Guaifenesin (Mucus Relief Er) 600 MG tablet Active 600 MG PO TWICE A DAY May 13, 2016 1:00am Incontinence Pad, Liner, Disp (POISE PADS) pads (20 sources) Start: 05-22-19 17 Incontinence Pad, Liner, Disp (POISE PADS) pads Indications: Mixed incontinence urge and stress (male)(female) Use pads as directed. Dx: N39.46 88 Each 5 05/22/2016 Active Comment on above: Use pads as directed . Dx: N39.46 ammonium lactate 120 mg/ml topical lotion (20 sources) Start: 08-16-19 21 ammonium lactate (AMLACTIN) 12 % lotion Indications: Other psoriasis Apply 1 application to affected area as needed for Dry Skin. 225 g 2 08/15/2020 Active Comment on above: Apply 1 application to affected area as needed for Dry Skin. levoFLOXacin 750 mg oral tablet (1 source) Quinolone Antimicrobial Start: 07-22-19 24 take 750 mg by mouth once daily Levofloxacin Active 750 MG PO DAILY July 22, 2023 12:00am LORazepam 0.5 mg oral tablet (2 sources) Benzodiazepine Start: 05-05-19 21 take 0.5 mg by mouth at bedtime Lorazepam Active 0.5 MG PO AT BEDTIME May 05, 2020 1:00am losartan potassium 50 mg oral tablet (20 sources) Angiotensin 2 Receptor He Start: 08-16-19 21 take 0.5 tablet by mouth once daily losartan (COZAAR) 50 mg tablet Take 0.5 tablets by mouth once daily. 30 tablet 11 08/15/2020 Active Comment on above: Take 0.5 tablets by mouth once daily. montelukast 10 mg oral tablet (20 sources) Leukotriene Receptor Antagonist Start: 06-01-19 25 End: 05-27-19 26 take 1 tablet by mouth once daily montelukast (SINGULAIR) 10 mg tablet Take 1 tablet by mouth once daily. 90 tablet 3 06/01/2024 05/27/2025 Active Start: 06-29-2022 End: 06-01-2024 montelukast (SINGULAIR) 10 m g tablet ONE -TWO TABS Q 4HOURS PRN 60 tablet 5 04/07/2024 06/01/2024 Discontinued (Erroneous entry) Start: 04-18-2013 End: 02-19-2023 take 10 mg by mouth once daily Montelukast Active 10 M G PO DAILY April 18, 2013 1:00am Comment on above: Take 1 tablet by richard th once daily. ONE -TWO TABS Q 4HOU RS PRN Nebulizer Accessories misc (20 sources) Start: 02-19-2023 Nebulizer Accessories misc Indications: Chronic obstructive pulmonary disease, unspecified COPD type (HCC) , Uncomplicated asthma, unspecified asthma severity, unspecified whether persistent (HCC) Mask and supplies as needed 1 Each 02/19/2023 Active Start: 02-19-2023 Nebulizer Acce ssories misc Indications: Chronic obstructive pulmonary disease, unspecified COPD type (HCC) , Uncomplicated asthma, unspecified asthma severity, unspecified whether persistent Mask and supplies as needed 1 Each 02/19/2023 Active Start: 02-19-2023 Nebulizer Acce ssories misc Indications: Chronic obstructive pulmonary disease, unspecified COPD type (HCC) , Uncomplicated asthma, unspecified asthma severity, unspecified whether persistent Mask and supplies as needed 1 Each 0 02/19/2023 Active Start: 05-17-2020 End: 02-19-2023 Nebulizer Accessories misc I ndications: Chronic obstructive pulmonary disease, unspecified COPD type (HCC) , Uncomplicated asthma, unspecified asthma severity, unspecified whether persistent Mask and supplies as needed 1 Each 0 05/17/2020 02/19/2023 Discontinued Start: 05-17-2020 Nebulizer Acce ssories [facility] [place] [place] Indications: Chronic obstructive pulmonary disease, unspecified COPD type (HCC) , Uncomplicated asthma, unspecified asthma severity, unspecified whether persistent Mask and supplies as needed 1 Each 0 05/17/2020 Active Comment on above: Mask and supplies as needed Nebulizer and Compressor For Neb (20 sources) Start: 02-19-2023 Nebulizer and Compressor For Neb Indications: Chronic obstructive pulmonary disease, unspecified COPD type (HCC) , Uncomplicated asthma, unspecified asthma severity, unspecified whether persistent (HCC) Use as directed. Dx: COPD J44.9 1 Each 02/19/2023 Active Start: 02-19-2023 Nebulizer and Compressor For Neb Indications: Chronic obstructive pulmonary disease, unspecified COPD type (HCC) , Uncomplicated asthma, unspecified asthma severity, unspecified whether persistent Use as directed. Dx: COPD J44.9 1 Each 02/19/2023 Active Start: 02-19-2023 Nebulizer and Compressor For Neb Indications: Chronic obstructive pulmonary disease, unspecified COPD type (HCC) , Uncomplicated asthma, unspecified asthma severity, unspecified whether persistent Use as directed. Dx: COPD J44.9 1 Each 0 02/19/2023 Active Start: 05-17-2020 End: 02-19-2023 Nebulizer and Compressor For Neb Indications: Chronic obstructive pulmonary disease, unspecified COPD type (HCC) , Uncomplicated asthma, unspecified asthma severity, unspecified whether persistent Use as directed. Dx: COPD J44.9 1 Each 0 05/17/2020 02/19/2023 Discontinued Start: 05-17-2020 Nebulizer and Compressor For Neb Indications: Chronic obstructive pulmonary disease, unspecified COPD type (HCC) , Uncomplicated asthma, unspecified asthma severity, unspecified whether persistent Use as directed. Dx: COPD J44.9 1 Each 0 05/17/2020 Active Comment on above: Use as directed. Dx: COPD J44.9 nystatin [id number] unt/ml oral suspension (20 sources) Polyene Antifungal Start: 12-30-2023 End: 07-06-2024 nystatin (MYCOSTATIN) 100,000 unit/mL suspension Indications: Thrush, oral Take 5 mL by mouth four times daily. 1tsp swish in mouth for several minutes, then swallow (or expectorate) 4 times daily until gone. 200 mL 2 07/06/2024 Active Start: 06-15-2023 End: 11-29-2023 nystatin (MYCOSTATIN) 100,00 0 unit/mL suspension Indications: Thrush, oral Take 5 mL by mouth four times daily. 1tsp swish in mouth for several minutes, then swallow (or expectorate) 4 times daily until gone. 200 mL 2 06/28/2023 11/29/2023 Discontinued (Course of therapy completed) Comment on above: Take 5 mL by mouth f our times daily. 1tsp swish in mouth for several minutes, then swallow (or expectorate) 4 times daily until gone. omeprazole 20 mg delayed release oral capsule (20 sources) Proton Pump Inhibitor Start: End: take 1 capsule by mouth once daily omeprazole (PRILOSEC) 20 mg capsule Indications: Esophageal reflux Take 1 capsule by mouth once daily. ON AN EMPTY STOMACH 30 capsule 11 06/22/2024 Active Start: 04-18-2013 End: 02-19-2023 take 1 capsule by mouth once daily omeprazole (PRILOSEC) 20 mg capsule Indications: Esophageal reflux Take 1 capsule by mouth once daily. ON AN EMPTY STOMACH 30 capsule 11 06/25/2023 Active Comment on above: TAKE 1 CAPSULE EVERY DAY on an empty stomach Take [address] [facility] once daily. ON AN EMPTY STOMACH Oxygen, Home (Home Oxygen) (2 sources) Start: 4 Oxygen, Home (Home Oxygen) Active 2.5 LPM NASAL NEEDED October 22, 2013 12:00am OXYGEN, HOME THERAPY, (20 sources) Start: 9 OXYGEN, HOME THERAPY, Indications: Chronic obstructive pulmonary disease, unspecified COPD type (HCC) 2.5 L/min by Nasal Cannula route continuous. Use as directred 1 Units 11 05/11/2018 Active Comment on above: 2.5 L/min by Nasal C annula route continuous. Use as directred OXYGEN-AIR DELIVERY SYSTEMS DEVICE (20 sources) Start: 5 OXYGEN-AIR DELIVERY SYSTEMS DEVICE as necessary 0 04/13/2005 Active Comment on above: as necessary predniSONE 10 mg oral tablet (20 sources) Start: take 1.5 tablets by mouth every other day predniSONE (DELTASONE) 10 mg tablet Indications: Stage 3 severe COPD by GOLD classification (HCC) Take 1.5 tablets by mouth every other day. 30 tablet 5 08/21/2024 Active Start: 07-22-2023 take 4 tablets by mo uth once daily, then take 3 tablets by mouth once daily, then take 2 tablets by mouth once daily, then take 1 tablet by mouth once daily, then take 0.5 tablet by mouth once daily Prednisone Active 10 MG PO DAILY July 22, 2023 12:00am Take 4 tablets daily for 3 days then 3 tablets daily for 3 days then 2 tablets daily for 3 days then 1 tablet daily for 3 days then half tablet daily for 4 days. Start: 05-24-2023 End: 03-03-2024 take 1.5 tablets by mouth every other day predniSONE (DELTASONE) 10 mg tablet Indications: Stage 3 severe COPD by GOLD classification (HCC) Take 1.5 tablets by mouth every other day. 30 tablet 5 03/03/2024 Active Start: 01-23-2022 End: 06-08-2022 take 1 tablet by mouth every other day predniSONE (DELTASONE) 10 mg tablet Indications: Chronic obstructive pulmonary disease, unspecified COPD type (HCC) , Uncomplicated asthma, unspecified asthma severity, unspecified whether persistent Take 1 tablet by mouth every other day. 30 tablet 5 06/08/2022 Active Start: 10-17-2021 take 1 tablet by richard th every other day predniSONE (DELTASONE) 10 mg tablet Indications: Chronic obstructive pulmonary disease, unspecified COPD type (HCC) , Uncomplicated asthma, unspecified asthma severity, unspecified whether persistent Take 1 tablet by mouth every other day. 30 tablet 2 10/17/2021 Active Start: 03-14-2021 End: 09-30-2021 take 1 tablet by mouth every other day predniSONE (DELTASONE) 10 mg tablet Take 1 tablet by mouth every other day. 30 tablet 2 03/14/2021 09/30/2021 Discontinued Start: 05-13-2016 End: 07-20-2023 Prednisone Discontinued 20 M G PO DAILY@0800 May 13, 2016 1:00am July 20, 2023 4:38am Take 2 tabs for 3 days, then one tab for 3 days, then 1/2 pill for 7 days, then stop. Start: 04-03-2015 Prednisone Act ene 15 MG PO NEEDED April 03, 2015 12:14pm Start: 09-25-2014 End: 04-03-2015 take 4 tablets by mouth once daily, then take 3 tablets by mouth once daily, then take 2 tablets by mouth once daily, then take 1 tablet by mouth once daily Prednisone Discontinued 10 MG PO DAILY September 25, 2014 12:00am April 03, 2015 12:14pm 4 tabs daily 3 days, 3 tabs daily 3 days, 2 tabs daily 3 days, 1 tab daily 3 days. Start: 09-23-2014 End: 09-25-2014 take 20 mg by mouth once daily Prednisone Discontinued 20 MG PO DAILY@0800 September 23, 2014 12:00am September 25, 2014 11:14am Start: 04-18-2013 End: 05-04-2013 take 40 mg by mouth once daily Prednisone Discontinued 40 MG PO DAILY April 18, 2013 1:00am May 04, 2013 4:26pm Start: 04-18-2013 End: 05-02-2013 Prednisone Discontinued 10 M G PO DAILY 48 April 18, 2013 1:00am May 02, 2013 9:09pm 6 po qd x 3 days, 4 po qd x 3 days, 2 po qd x 3 days, 1 po qd x 3 days Comment on above: Take 1 tablet by richard th every other day. Take 2 tablets by mo uth once daily. Take 1.5 tablets by mouth every other day. PULSE OXIMETER [facility] (20 sources) Start: 07-17-2021 PULSE OXIMETER [facility] Indications: Chronic obstructive pulmonary disease, unspecified COPD type (HCC) , Moderate persistent asthma without complication (HCC) Use as directed to check oxygen saturation level 1 Each 07/17/2021 Active Start: 07-17-2021 PULSE OXIMETER [facility] Indications: Chronic obstructive pulmonary disease, unspecified COPD type (HCC) , Moderate persistent asthma without complication Use as directed to check oxygen saturation level 1 Each 07/17/2021 Active Start: 07-17-2021 PULSE OXIMETER [facility] Indications: Chronic obstructive pulmonary disease, unspecified COPD type (HCC) , Moderate persistent asthma without complication Use as directed to check oxygen saturation level 1 Each 0 07/17/2021 Active Comment on above: Use as directed to c [facility] [place] oxygen saturation level rOPINIRole 0.25 mg oral tablet (20 sources) Nonergot Dopamine Agonist Start: 09-23-2014 End: 10-18-2023 take 1 tablet by mouth once daily at bedtime rOPINIRole (REQUIP) 0.25 mg tablet Take 1 tablet by mouth daily at bedtime. 90 tablet 3 10/18/2023 Active Comment on above: Take 1 tablet by richard daily at bedtime. sertraline 100 mg oral tablet (20 sources) Serotonin Reuptake Inhibitor Start: 07-08-2021 End: 06-17-2025 take 2 tablets by mouth once daily sertraline (ZOLOFT) 100 mg tablet Take 2 tablets by mouth once daily. 180 tablet 3 06/22/2024 06/17/2025 Active Start: 10-22-2013 take 100 mg by mouth once daily Sertraline Active 100 MG PO DAILY October 22, 2013 12:00am Start: 04-18-2013 End: 05-02-2013 take 100 mg by mouth once daily Sertraline Discontinued 100 MG PO DAILY April 18, 2013 1:00am May 02, 2013 9:09pm Comment on above: Take 2 tablets by mo [facility] once daily. tiotropium 0.018 mg inhalation powder (20 sources) Anticholinergic Start: 06-15-19 End: 04-10-20 take 1 capsule by inhalation once daily tiotropium (SPIRIVA) 18 mcg inhalation capsule Inhale 1 capsule as instructed once daily. 30 capsule 11 04/10/2024 Active Start: 05-18-2023 End: 06-15-2023 take 1 capsule by mouth once daily tiotropium (SPIRIVA WITH HANDIHALER) 18 mcg inhalation capsule inhale 1 capsule by mouth as directed once daily 30 capsule 11 06/11/2023 06/15/2023 Discontinued Start: 04-21-2021 End: 05-05-2022 take 1 capsule by mouth once daily tiotropium (SPIRIVA WITH HANDIHALER) 18 mcg inhalation capsule inhale 1 capsule by mouth as directed once daily 810 capsule 0 05/05/2022 Active Comment on above: inhale 1 capsule by mouth as directed once daily Inhale 1 capsule as instructed once daily. Tiotropium Ovando (Spiriva With Handihaler) 1 PUFF inhaler (2 sources) Start: 04-18-20 take 1 puff(s) by inhalation once daily Tiotropium Ovando (Spiriva With Handihaler) 1 PUFF inhaler Active 1 PUFF INHALATION DAILY April 18, 2013 1:00am verapamil hydrochloride 240 mg extended release oral tablet (20 sources) Calcium Channel He Start: 01-01-20 End: 07-07-19 25 take 1 tablet by mouth once daily at bedtime verapamil SR (CALAN SR) 240 mg CR tablet Take 1 tablet by mouth daily at bedtime. 90 tablet 3 07/06/2024 Active Start: 01-03-2021 take 1 tablet by richard th once daily at bedtime verapamil SR (CALAN SR, ISOPTIN SR) 240 mg CR tablet Take 1 tablet by mouth daily at bedtime. 210 tablet 1 01/03/2021 Active Start: 04-18-2013 take 360 mg by mouth once lilia y Verapamil Active 360 MG PO DAILY April 18, 2013 1:00am Comment on above: Take 1 tablet by richard th daily at bedtime. Completed/Discontinued Medications Medication Drug Class(es) Dates Sig (Normalized) Sig (Original) acetaminophen 325 mg / oxyCODONE hydrochloride 5 mg oral tablet (2 sources) Opioid Agonist Start: 10-22-2013 End: 10-26-2013 take 1 tablet by mouth every four hours as needed Oxycodone-Acetami nophen Discontinued 1 - 2 TABLET PO EVERY 4 HOURS NEEDED October 22, 2013 12:00am October 26, 2013 3:36pm ALPRAZolam 0.5 mg oral tablet (2 sources) Benzodiazepine Start: 05-04-2013 End: 07-20-2023 take 0.5 mg by mouth three times daily as needed Alprazolam Discontinued 0.5 MG PO 3 TIMES DAILY NEEDED May 04, 2013 1:00am July 20, 2023 4:35am cephalexin 500 mg oral capsule (2 sources) Cephalosporin Antibacterial Start: 10-22-2013 End: 10-26-2013 take 500 mg by mouth every six hours Cephalexin Discontinued 500 MG PO EVERY 6 HOURS October 22, 2013 12:00am October 26, 2013 3:35pm dextromethorphan hydrobromide 1 mg/ml / guaiFENesin 20 mg/ml / phenylephrine hydrochloride 0.5 mg/ml oral solution (20 sources) Uncompetitive F-ojvycv-F-aspartat e Receptor Antagonist, Sigma-1 Agonist, alpha-1 Adrenergic Agonist Start: 02-08-2019 End: 02-19-2023 take 10 mL by mouth every eight hours as needed for chronic obstructive pulmonary disease and chronic obstructive pulmonary disease Phenylephrine-DM- guaiFENesin (MUCINEX FAST-MAX CONGEST-COUGH) 2.5-5-100 mg/5 mL liqd Indications: Chronic obstructive pulmonary disease, unspecified COPD type (HCC) Take 10 mL by mouth three times daily as needed. 118 mL 1 02/08/2019 02/19/2023 Discontinued Comment on above: Take 10 mL by mouth three times daily as needed. doxycycline monohydrate 100 mg oral capsule (2 sources) Tetracycline-class Drug Start: 04-18-2013 End: 05-02-2013 take 100 mg by mouth twice daily Doxycycline Hyclate Discontinued 100 MG PO TWICE A DAY April 18, 2013 1:00am May 02, 2013 9:19pm naproxen 500 mg oral tablet (2 sources) Nonsteroidal Anti-inflammatory Drug Start: 10-22-2013 End: 10-26-2013 take 500 mg by mouth twice daily Naproxen Discontinued 500 MG PO TWICE A DAY October 22, 2013 12:00am October 26, 2013 3:35pm 24 hr nicotine 0.292 mg/hr transdermal system (20 sources) Cholinergic Nicotinic Agonist Start: 07-22-2023 Nicotine (Polacrilex) (Nicorette) 2 mg gum Active 2 MG BUCCAL Q2H July 22, 2023 12:00am Start: 05-24-2023 Nicotine Polac rilex 2 mg lozenge Indications: Tobacco use disorder Place 1 Lozenge between cheek and gum as needed. 96 Lozenge 3 05/24/2023 Active Start: 05-24-2023 End: 11-29-2023 nicotine (NICODERM) 7 mg/24 hr Indications: Tobacco use disorder Apply 1 Patch as directed every 24 hours. 28 Patch 2 10/18/2023 11/29/2023 Discontinued (Course of therapy completed) Start: 11-13-2022 nicotine (BENJAMIN DERM) 7 mg/24 hr Indications: Tobacco use disorder Apply 1 Patch as directed every 24 hours. 28 Patch 2 11/13/2022 Active Start: 11-13-2022 Nicotine Polac rilex 2 mg lozenge Indications: Tobacco use disorder Place 1 Lozenge between cheek and gum as needed. 96 Lozenge 3 11/13/2022 Active Start: 06-17-2020 End: 02-19-2023 take 1 dose by mouth every two hours as needed nicotine polacrilex (NICORETTE) 2 mg gum Indications: Tobacco use disorder Take 1 Each by mouth every 2 hours as needed. 100 Each 3 11/13/2022 02/19/2023 Discontinued Start: 06-17-2020 End: 02-19-2023 Nicotine Polacrilex [address] 4 mg between cheek and gum as needed. 72 tablet 3 06/17/2020 02/19/2023 Discontinued Comment on above: Place 4 mg between c heek and gum as needed. Take 1 Each by mouth every 2 hours as needed. Apply 1 Patch as dir ected every [address] 1 Lozenge betw een cheek and gum as needed. sulfamethoxazole 800 mg / trimethoprim 160 mg oral tablet (2 sources) Dihydrofolate Reductase Inhibitor Antibacterial, Sulfonamide Antimicrobial Start: 10-23-19 14 End: 10-27-19 14 take 1 tablet by mouth twice daily Sulfamethoxazole-Tr imethoprim Discontinued 1 TABLET PO TWICE A DAY October 22, 2013 12:00am October 26, 2013 3:36pm tiZANidine 4 mg oral tablet (7 sources) Central alpha-2 Adrenergic Agonist Start: 10-01-19 24 End: 11-29-19 24 take 1 tablet by mouth every eight hours as needed tiZANidine (ZANAFLEX) 4 mg tablet Take 1 tablet by mouth every 8 hours as needed (muscle spasms). 90 tablet 5 10/01/2023 11/29/2023 Discontinued (Course of therapy completed) Problems Active Problems Problem Classification Problem Date Documented Date Episodic/Chronic Anxiety disorders (20 sources) Generalized anxiety disorder; Translations: [Generalized anxiety disorder] 01-27-2007 Chronic Asthma (20 sources) Asthma; Translations: [Unspecified asthma, uncomplicated] 02-20-2015 Chronic Biliary tract disease (20 sources) Calculus of bile duct with cholangitis; Translations: [Calculus of bile duct with acute cholangitis with obstruction] Onset: 06-30-2016 06-30-2016 Chronic Chronic obstructive pulmonary disease and bronchiectasis (20 sources) Chronic obstructive lung disease; Translations: [Chronic obstructive pulmonary disease, unspecified] Onset: 09-28-2005 06-27-2016 Chronic Chronic obstructive pulmonary disease and bronchiectasis (1 source) Bronchitis; Translations: [Bronchitis, not specified as acute or chronic] 10-22-2023 Episodic Diabetes mellitus without complication (2 sources) Increased glucose level; Translations: [Other abnormal glucose] Episodic Diseases of mouth; excluding dental (1 source) Oral infection; Translations: [Cellulitis and abscess of mouth] 03-22-2024 Episodic Esophageal disorders (20 sources) Gastroesophageal reflux disease; Translations: [Gastro-esophageal reflux disease without esophagitis] Onset: 03-22-2007 09-13-2007 Chronic Essential hypertension (20 sources) Benign essential hypertension; Translations: [Essential (primary) hypertension] Chronic Immunizations and screening for infectious disease (1 source) Needs influenza immunization; Translations: [Encounter for immunization] 02-19-2023 Episodic Mood disorders (20 sources) Dysthymia; Translations: [Dysthymic disorder] 01-27-2007 Chronic Mycoses (4 sources) Candidiasis of mouth; Translations: [Candidal stomatitis] 06-15-2023 Episodic Osteoarthritis (20 sources) Degenerative joint disease involving multiple joints; Translations: [Polyosteoarthritis, unspecified] 01-27-2007 Chronic Other lower respiratory disease (2 sources) Respiratory insufficiency; Translations: [Other abnormalities of breathing] 07-20-2023 Episodic Other lower respiratory disease (2 sources) Hypoxia; Translations: [Hypoxemia] 07-20-2023 Episodic Other lower respiratory disease (2 sources) Hypoxemia; Translations: [Hypoxemia] 07-20-2023 Episodic Other lower respiratory disease (1 source) Shortness of breath; Translations: [Shortness of breath] Onset: 11-05-2023 Episodic Other screening for suspected conditions (not mental disorders or infectious disease) (20 sources) Abnormal cytological findings in specimens from other organs, systems and tissues; Translations: [Other abnormal Papanicolaou smear of cervix and cervical HPV] 01-27-2007 Episodic Residual codes; unclassified (2 sources) Tobacco use and exposure - finding; Translations: [Tobacco use] 04-03-2015 Episodic Respiratory failure; insufficiency; arrest (adult) (20 sources) Chronic hypoxemic respiratory failure; Translations: [Chronic respiratory failure with hypoxia] Onset: 02-20-2022 Chronic Substance-related disorders (20 sources) Tobacco user; Translations: [Nicotine dependence, unspecified, uncomplicated] Onset: 08-21-2005 01-27-2007 Chronic Past or Other Problems Problem Classification Problem Date Documented Da te Episodic/Chronic Alcohol-related disorders (20 sources) History of alcohol abuse; Translations: [Alcohol abuse, in remission] Resolved: 08-11-2018 04-03-2015 Chronic Bacterial infection; unspecified site (20 sources) Bacteremia; Translations: [Bacteremia] Onset: 06-23-2016 Resolved: 03-22-2017 06-27-2016 Episodic Biliary tract disease (20 sources) Acute cholangitis due to bile duct calculus with obstruction; Translations: [Calculus of gallbladder without cholecystitis with obstruction] Onset: 06-21-2016 Resolved: 06-27-2016 06-27-2016 Episodic Cancer of bronchus; lung (20 sources) Non-small cell lung cancer; Translations: [Malignant neoplasm of unspecified part of unspecified bronchus or lung] Onset: 04-13-2005 Resolved: 06-27-2016 04-03-2015 Chronic Other aftercare (20 sources) Patient encounter status; Translations: [Encounter for therapeutic drug level monitoring] Onset: 05-16-2021 05-16-2021 Episodic Other gastrointestinal disorders (20 sources) Constipation; Translations: [Constipation, unspecified] Onset: 06-21-2016 Resolved: 06-27-2016 06-27-2016 Episodic Other hematologic conditions (20 sources) Lesion of spleen; Translations: [Other diseases of spleen] Onset: 06-25-2016 06-27-2016 Episodic Other lower respiratory disease (3 sources) Other abnormalities of breathing; Translations: [Other respiratory abnormalities] Onset: 07-22-2023 07-20-2023 Episodic Other upper respiratory infections (5 sources) Viral upper respiratory tract infection; Translations: [Acute upper respiratory infection, unspecified] Onset: 07-22-2023 07-20-2023 Episodic Spondylosis; intervertebral disc disorders; other back problems (20 sources) Chronic low back pain; Translations: [Lumbago with sciatica, unspecified side] Onset: 10-21-2010 Resolved: 07-15-2021 Episodic Unclassified (1 source) Patient encounter status 06-03-2024 Results Test Name Value Interpretation Reference Range Facility [facility] 07-24-2024 CNPN Telephone (FAMPWS) DENIA GONZALEZ ([id number]) 1955 F Date Time Provider Department 07/24/24 YOSEPH FALL [facility] During your visit today, we recorded the following information about you: Clarisse Anguiano RN 07/24/2024 4:33 PM Signed Pts significant other Mike called in and reports Pt was wanting provider to call in medication for a rash she has. He states the Pt does not go out of house and she is on O2. Pt received a new shirt and wore it without washing it and rash is in area where shirt was. It is a flat red rash that it itchy. Pt denies skin being warm or running a fever. Denies rash having any heads on them. I told him provider may want to have a VV so he can see the rash. He states the Pt has a health and safety tech that come in tomorrow and she could try and help the Pt with a VV. He states she usually does phone visits. I told him the provider may need to see the rash. Pt was wanting the provider to order an antibiotic for it. Mike states he knows a cream could probably be called in. Please call and advise Pt. Yoseph Fall MD 07/24/2024 5:09 PM Signed She may try taking 40 mg of prednisone (she has 10 mg tablets at home) for 3 days and see if this clears up the rash; sounds like an allergic reaction. MD Annmarie Chopra Amanda, KAREN 07/24/2024 6:11 PM Signed Pt significant other Mike called and is notified of providers results and instructions. He voices understanding. Clarisse Anguiano RN Allergies As of Date: 07/24/2024 (No Known Allergies) Date Reviewed: 07/06/2024 Reviewed by: Sanjana Baca MA - Fully Assessed Reason for Visit: Patient Update [1234] Medication Request [138] Prescriptions as of 07/24/2024 - nystatin (MYCOSTATIN) 100,000 unit/mL suspension Take 5 mL by mouth four times daily. 1tsp swish in mouth for several minutes, then swallow (or expectorate) 4 times daily until gone. - HYDROcodone-acetamin ophen (NORCO) 5-325 mg per tablet Take 1 tablet by mouth two times a day as needed for pain for up to 30 days. - verapamil SR (CALAN SR) 240 mg CR tablet Take 1 tablet by mouth daily at bedtime. - sertraline (ZOLOFT) 100 mg tablet Take 2 tablets by mouth once daily. - busPIRone (BUSPAR) 10 mg tablet Take 1 tablet by mouth two times a day. - Cholecalciferol, Vitamin D3, 50 mcg (2,000 unit) cap Take 1 capsule by mouth once daily. - omeprazole (PRILOSEC) 20 mg capsule Take 1 capsule by mouth once daily. ON AN EMPTY STOMACH - cyclobenzaprine (FLEXERIL) 10 mg tablet Take 1 tablet by mouth two times a day as needed for muscle spasm. - montelukast (SINGULAIR) 10 mg tablet Take 1 tablet by mouth once daily. - tiotropium (SPIRIVA) 18 mcg inhalation capsule Inhale 1 capsule as instructed once daily. - predniSONE (DELTASONE) 10 mg tablet Take 1.5 tablets by mouth every other day. - albuterol HFA (VENTOLIN HFA) 90 mcg/actuation inhaler Inhale 2 Puffs as instructed every 4 hours as needed. - ipratropium-albutero l (DUONEB) 0.5 mg-3 mg(2.5 mg base)/3 mL nebu inhale 1 ampule via nebulizer every 4 hours if needed for wheezing. Use over 5 to 15 minutes - fluticasone-salmeter ol (ADVAIR DISKUS) 500-50 mcg/dose dsdv Inhale 1 Puff as instructed two times a day. Rinse and gargle mouth with water after use. - rOPINIRole (REQUIP) 0.25 mg tablet Take 1 tablet by mouth daily at bedtime. - fluticasone (FLONASE) 50 mcg/actuation nasal spray use 2 sprays in each nostril daily. Rinse mouth after use - Nicotine Polacrilex [address] 1 Lozenge between cheek and gum as needed. - Nebulizer and Compressor For Neb Use as directed. Dx: COPD J44.9 - Nebulizer Accessories [facility] Mask and supplies as needed - PULSE OXIMETER [facility] Use as directed to check oxygen saturation level - ammonium lactate (AMLACTIN) 12 % lotion Apply 1 application to affected area as needed for Dry Skin. - losartan (COZAAR) 50 mg tablet Take 0.5 tablets by mouth once daily. - OXYGEN, HOME THERAPY, 2.5 L/min by Nasal Cannula route continuous. Use as directred - Disposable Gloves (DISPOSABLE LATEX-FREE GLOVES) [facility] 1 Box once every month. ICD 10: M15.9, J44.9, M54.40 - Incontinence Pad, Liner, Disp (POISE PADS) pads Use pads as directed. Dx: N39.46 - COMPOUNDED PRESCRIPTION BLOOD PRESSURE CUFF FOR HOME USE. DX: HYPERTENSION I10. AUTOMATIC CUFF. - COMPOUNDED PRESCRIPTION Blood pressure monitor for home use. Dx: I10 - OXYGEN-AIR DELIVERY SYSTEMS DEVICE as necessary Meds Comments as of 07/03/2019: Not using nicorette gum or lozenge but will be starting Problem List As Of Date 07/24/2024 Noted Resolved Other and unspecified alcohol dependence, unspe* 08/11/2018 LUNG CANCER [C34.10] 04/13/2005 06/27/2016 MALIG NEOPLASM BRONCH/LUNG NOS [C34.90] 12/08/2006 DYSTHYMIC DISORDER [F34.1] TOBACCO USE DISORDER [F17.200] 08/21/2005 Stage 3 severe COPD by GOLD classification (HC (more content not included)... Normal [facility] [place] 07-12-2024 [place] Telephone (FAMPWS) DENIA GONZALEZ ([id number]) 1955 F Date Time Provider Department 07/12/24 YOSEPH FALL During your visit today, we recorded the following information about you: Sukhi Marrero RN 07/12/2024 2:51 PM Akash Jenni with [facility] calls to request chart notes to support patients need for continued oxygen. Most recent visits have all been [facility]. Jenni requests most recent visit be faxed. Faxed to [phone] per request. Sukhi Marrero RN Allergies As of Date: 07/12/2024 (No Known Allergies) Date Reviewed: 07/06/2024 Reviewed by: Sanjana Baca MA - Fully Assessed Reason for Visit: Chart Notes [Other] Prescriptions as of 07/12/2024 - nystatin (MYCOSTATIN) 100,000 unit/mL suspension Take 5 mL by mouth four times daily. 1tsp swish in mouth for several minutes, then swallow (or expectorate) 4 times daily until gone. - HYDROcodone-acetamin ophen (NORCO) 5-325 mg per tablet Take 1 tablet by mouth two times a day as needed for pain for up to 30 days. - verapamil SR (CALAN SR) 240 mg CR tablet Take 1 tablet by mouth daily at bedtime. - sertraline (ZOLOFT) 100 mg tablet Take 2 tablets by mouth once daily. - busPIRone (BUSPAR) 10 mg tablet Take 1 tablet by mouth two times a day. - Cholecalciferol, Vitamin D3, 50 mcg (2,000 unit) cap Take 1 capsule by mouth once daily. - omeprazole (PRILOSEC) 20 mg capsule Take 1 capsule by mouth once daily. ON AN EMPTY STOMACH - cyclobenzaprine (FLEXERIL) 10 mg tablet Take 1 tablet by mouth two times a day as needed for muscle spasm. - montelukast (SINGULAIR) 10 mg tablet Take 1 tablet by mouth once daily. - tiotropium (SPIRIVA) 18 mcg inhalation capsule Inhale 1 capsule as instructed once daily. - predniSONE (DELTASONE) 10 mg tablet Take 1.5 tablets by mouth every other day. - albuterol HFA (VENTOLIN HFA) 90 mcg/actuation inhaler Inhale 2 Puffs as instructed every 4 hours as needed. - ipratropium-albutero l (DUONEB) 0.5 mg-3 mg(2.5 mg base)/3 mL nebu inhale 1 ampule via nebulizer every 4 hours if needed for wheezing. Use over 5 to 15 minutes - fluticasone-salmeter ol (ADVAIR DISKUS) 500-50 mcg/dose dsdv Inhale 1 Puff as instructed two times a day. Rinse and gargle mouth with water after use. - rOPINIRole (REQUIP) 0.25 mg tablet Take 1 tablet by mouth daily at bedtime. - fluticasone (FLONASE) 50 mcg/actuation nasal spray use 2 sprays in each nostril daily. Rinse mouth after use - Nicotine Polacrilex [address] 1 Lozenge between cheek and gum as needed. - Nebulizer and Compressor For Neb Use as directed. Dx: COPD J44.9 - Nebulizer Accessories [facility] Mask and supplies as needed - PULSE OXIMETER [facility] Use as directed to check oxygen saturation level - ammonium lactate (AMLACTIN) 12 % lotion Apply 1 application to affected area as needed for Dry Skin. - losartan (COZAAR) 50 mg tablet Take 0.5 tablets by mouth once daily. - OXYGEN, HOME THERAPY, 2.5 L/min by Nasal Cannula route continuous. Use as directred - Disposable Gloves (DISPOSABLE LATEX-FREE GLOVES) [facility] 1 Box once every month. ICD 10: M15.9, J44.9, M54.40 - Incontinence Pad, Liner, Disp (POISE PADS) pads Use pads as directed. Dx: N39.46 - COMPOUNDED PRESCRIPTION BLOOD PRESSURE CUFF FOR HOME USE. DX: HYPERTENSION I10. AUTOMATIC CUFF. - COMPOUNDED PRESCRIPTION Blood pressure monitor for home use. Dx: I10 - OXYGEN-AIR DELIVERY SYSTEMS DEVICE as necessary Meds Comments as of 07/03/2019: Not using nicorette gum or lozenge but will be starting Problem List As Of Date 07/12/2024 Noted Resolved Other and unspecified alcohol dependence, unspe* 08/11/2018 LUNG CANCER [C34.10] 04/13/2005 06/27/2016 MALIG NEOPLASM BRONCH/LUNG NOS [C34.90] 12/08/2006 DYSTHYMIC DISORDER [F34.1] TOBACCO USE DISORDER [F17.200] 08/21/2005 Stage 3 severe COPD by GOLD classification (HCC*09/28/2005 Asthma [J45.909] GENERAL OSTEOARTHROSIS [M15.9] Essential hypertension, benign [I10] GENERALIZED ANXIETY DIS [F41.1] ABNORMAL PAP SMEAR OF CERVIX NEC AND HPV [R89.6] ESOPHAGEAL REFLUX [K21.9] 03/22/2007 Back pain [M54.9] 10/21/2010 07/15/2021 Cholelithiasis with acute cholangitis with bili*06/21/2016 06/27/2016 Constipation [K59.00] 06/21/2016 06/27/2016 Bacteremia [R78.81] 06/23/2016 06/27/2016 Splenic lesion [D73.89] 06/25/2016 Calculus of bile duct with acute cholangitis wi*06/30/2016 MRSA bacteremia [R78.81, B95.62] 06/30/2016 03/22/2017 S/P laparoscopic cholecystectomy [Z90.49] 08/06/2016 le [Z51.81] 05/16/2021 Chronic respiratory failure with hypoxia (HCC) *02/20/2022 Cigarette smoker [F17.210] 02/20/2022 Obstructive chronic bronchitis with exacerbatio* Encounter Status:Closed by SUKHI MARRERO on 07/12/24 [facility] DEN[facility] ([id number]) 1955 F Date Time Provider Department 06/12/24 YOSEPH FALL [facility] During your visit today, we recorded the following information about you: Sanjana Baca MA 06/12/2024 12:44 PM Signed Type of form: Medical Necessity for incontinence supplies. Form received via fax When form is completed, Fax form to [phone] Form has been forwarded to Physician Desk: JOS Drew Rilee, MA 06/12/2024 3:42 PM Signed Form completed and faxed back to information below. Sanjana Baca MA Allergies As of Date: 06/12/2024 (No Known Allergies) Date Reviewed: 04/07/2024 Reviewed by: Sanjana Baca MA - Fully Assessed Reason for Visit: Forms [913] Cmt: [facility] Supply Prescriptions as of 06/12/2024 - cyclobenzaprine (FLEXERIL) 10 mg tablet Take 1 tablet by mouth two times a day as needed for muscle spasm. - montelukast (SINGULAIR) 10 mg tablet Take 1 tablet by mouth once daily. - HYDROcodone-acetamin ophen (NORCO) 5-325 mg per tablet Take 1 tablet by mouth two times a day as needed for pain for up to 30 days. - nystatin (MYCOSTATIN) 100,000 unit/mL suspension Take 5 mL by mouth four times daily. 1tsp swish in mouth for several minutes, then swallow (or expectorate) 4 times daily until gone. - tiotropium (SPIRIVA) 18 mcg inhalation capsule Inhale 1 capsule as instructed once daily. - busPIRone (BUSPAR) 10 mg tablet Take 1 tablet by mouth two times a day. - predniSONE (DELTASONE) 10 mg tablet Take 1.5 tablets by mouth every other day. - albuterol HFA (VENTOLIN HFA) 90 mcg/actuation inhaler Inhale 2 Puffs as instructed every 4 hours as needed. - ipratropium-albutero l (DUONEB) 0.5 mg-3 mg(2.5 mg base)/3 mL nebu inhale 1 ampule via nebulizer every 4 hours if needed for wheezing. Use over 5 to 15 minutes - fluticasone-salmeter ol (ADVAIR DISKUS) 500-50 mcg/dose dsdv Inhale 1 Puff as instructed two times a day. Rinse and gargle mouth with water after use. - rOPINIRole (REQUIP) 0.25 mg tablet Take 1 tablet by mouth daily at bedtime. - fluticasone (FLONASE) 50 mcg/actuation nasal spray use 2 sprays in each nostril daily. Rinse mouth after use - sertraline (ZOLOFT) 100 mg tablet Take 2 tablets by mouth once daily. - verapamil SR (CALAN SR) 240 mg CR tablet Take 1 tablet by mouth daily at bedtime. - Cholecalciferol, Vitamin D3, 50 mcg (2,000 unit) cap Take 1 capsule by mouth once daily. - omeprazole (PRILOSEC) 20 mg capsule Take 1 capsule by mouth once daily. ON AN EMPTY STOMACH - Nicotine Polacrilex [address] 1 Lozenge between cheek and gum as needed. - Nebulizer and Compressor For Neb Use as directed. Dx: COPD J44.9 - Nebulizer Accessories [facility] Mask and supplies as needed - PULSE OXIMETER [facility] Use as directed to check oxygen saturation level - ammonium lactate (AMLACTIN) 12 % lotion Apply 1 application to affected area as needed for Dry Skin. - losartan (COZAAR) 50 mg tablet Take 0.5 tablets by mouth once daily. - OXYGEN, HOME THERAPY, 2.5 L/min by Nasal Cannula route continuous. Use as directred - Disposable Gloves (DISPOSABLE LATEX-FREE GLOVES) [facility] 1 Box once every month. ICD 10: M15.9, J44.9, M54.40 - Incontinence Pad, Liner, Disp (POISE PADS) pads Use pads as directed. Dx: N39.46 - COMPOUNDED PRESCRIPTION BLOOD PRESSURE CUFF FOR HOME USE. DX: HYPERTENSION I10. AUTOMATIC CUFF. - COMPOUNDED PRESCRIPTION Blood pressure monitor for home use. Dx: I10 - OXYGEN-AIR DELIVERY SYSTEMS DEVICE as necessary Meds Comments as of 07/03/2019: Not using nicorette gum or lozenge but will be starting Problem List As Of Date 06/12/2024 Noted Resolved Other and unspecified alcohol dependence, unspe* 08/11/2018 LUNG CANCER [C34.10] 04/13/2005 06/27/2016 MALIG NEOPLASM BRONCH/LUNG NOS [C34.90] 12/08/2006 DYSTHYMIC DISORDER [F34.1] TOBACCO USE DISORDER [F17.200] 08/21/2005 Stage 3 severe COPD by GOLD classification ([facility]*09/28/2005 Asthma [J45.909] GENERAL OSTEOARTHROSIS [M15.9] Essential hypertension, benign [I10] GENERALIZED ANXIETY DIS [F41.1] ABNORMAL PAP SMEAR OF CERVIX NEC AND HPV [R89.6] ESOPHAGEAL REFLUX [K21.9] 03/22/2007 Back pain [M54.9] 10/21/2010 07/15/2021 Cholelithiasis with acute cholangitis with bili*06/21/2016 06/27/2016 Constipation [K59.00] 06/21/2016 06/27/2016 Bacteremia [R78.81] 06/23/2016 06/27/2016 Splenic lesion [D73.89] 06/25/2016 Calculus of bile duct with acute cholangitis wi*06/30/2016 MRSA bacteremia [R78.81, B95.62] 06/30/2016 03/22/2017 S/P laparoscopic cholecystectomy [Z90.49] 08/06/2016 le [Z51.81] 05/16/2021 Chronic respiratory failure with hypoxia (HCC) *02/20/2022 Cigarette smoker [F17.210] 02/20/2022 Obstructive chronic bronchitis with exacerbatio* Encounter Status:Closed by SANJANA BACA on 06/12/24 [facility] 06-02-2024 CNPN Telephone (INTMWS) DENIA GONZALEZ ([id number]) 1955 F Date Time Provider Department 06/02/24 YOSEPH FALL INTMWS During your visit today, we recorded the following information about you: Ban Villafana LPN 06/02/2024 8:13 AM Signed Electronic PA rec'd and completed for cyclobenzaprine. This was denied. Note from payer: CaseId:[id number];Stat us:Denied;Review Type:Prior Auth;Appeal Information: Attention:ATTN: MED[employer] [address] [address],[place], [place],[address] WebAddress:[email or web address]; Important - Please read the below note on eAppeals: Please reference the denial letter for information on the rights for an appeal, rationale for the denial, and how to submit an appeal including if any information is needed to support the appeal. Note about urgent situations - Generally, an urgent situation is one which, in the opinion of the provider, the health of the patient may be in serious jeopardy or may experience pain that cannot be adequately controlled while waiting for a decision on the appeal.; Payer: [employer] HOME DELIVERY [phone] Electronic appeal: Supported View History Notes Time User Attachment Attachment received from payer. 06/01/2024 7:17 PM Cchs, Rx Priorauth In Document Medication Being Authorized cyclobenzaprine (FLEXERIL) 10 mg tablet Take 1 tablet by mouth two times a day as needed for muscle spasm. Dispense: 60 tablet Refills: 5 Start: 06/01/2024 Class: Normal Diagnoses: Generalized osteoarthrosis, involving multiple sites This order has been released to its destination. To be filled at: [facility] [address] [place] [phone] [phone] - [phone] Allergies As of Date: 06/02/2024 (No Known Allergies) Date Reviewed: 04/07/2024 Reviewed by: Sanjana Baca MA - Fully Assessed Reason for Visit: Insurance Authorization [[id number]] Prescriptions as of 06/07/2024 - cyclobenzaprine (FLEXERIL) 10 mg tablet Take 1 tablet by mouth two times a day as needed for muscle spasm. - montelukast (SINGULAIR) 10 mg tablet Take 1 tablet by mouth once daily. - HYDROcodone-acetamin ophen (NORCO) 5-325 mg per tablet Take 1 tablet by mouth two times a day as needed for pain for up to 30 days. - nystatin (MYCOSTATIN) 100,000 unit/mL suspension Take 5 mL by mouth four times daily. 1tsp swish in mouth for several minutes, then swallow (or expectorate) 4 times daily until gone. - tiotropium (SPIRIVA) 18 mcg inhalation capsule Inhale 1 capsule as instructed once daily. - busPIRone (BUSPAR) 10 mg tablet Take 1 tablet by mouth two times a day. - predniSONE (DELTASONE) 10 mg tablet Take 1.5 tablets by mouth every other day. - albuterol HFA (VENTOLIN HFA) 90 mcg/actuation inhaler Inhale 2 Puffs as instructed every 4 hours as needed. - ipratropium-albutero l (DUONEB) 0.5 mg-3 mg(2.5 mg base)/3 mL nebu inhale 1 ampule via nebulizer every 4 hours if needed for wheezing. Use over 5 to 15 minutes - fluticasone-salmeter ol (ADVAIR DISKUS) 500-50 mcg/dose dsdv Inhale 1 Puff as instructed two times a day. Rinse and gargle mouth with water after use. - rOPINIRole (REQUIP) 0.25 mg tablet Take 1 tablet by mouth daily at bedtime. - fluticasone (FLONASE) 50 mcg/actuation nasal spray use 2 sprays in each nostril daily. Rinse mouth after use - sertraline (ZOLOFT) 100 mg tablet Take 2 tablets by mouth once daily. - verapamil SR (CALAN SR) 240 mg CR tablet Take 1 tablet by mouth daily at bedtime. - Cholecalciferol, Vitamin D3, 50 mcg (2,000 unit) cap Take 1 capsule by mouth once daily. - omeprazole (PRILOSEC) 20 mg capsule Take 1 capsule by mouth once daily. ON AN EMPTY STOMACH - Nicotine Polacrilex [address] 1 Lozenge between cheek and gum as needed. - Nebulizer and Compressor For Neb Use as directed. Dx: COPD J44.9 - Nebulizer Accessories [facility] Mask and supplies as needed - PULSE OXIMETER [facility] Use as directed to check oxygen saturation level - ammonium lactate (AMLACTIN) 12 % lotion Apply 1 application to affected area as needed for Dry Skin. - losartan (COZAAR) 50 mg tablet Take 0.5 tablets by mouth once daily. - OXYGEN, HOME THERAPY, 2.5 L/min by Nasal Cannula route continuous. Use as directred - Disposable Gloves (DISPOSABLE LATEX-FREE GLOVES) [facility] 1 Box once every month. ICD 10: M15.9, J44.9, M54.40 - Incontinence Pad, Liner, Disp (POISE PADS) pads Use pads as directed. Dx: N39.46 - COMPOUNDED PRESCRIPTION BLOOD PRESSURE CUFF FOR HOME USE. DX: HYPERTENSION I10. AUTOMATIC CUFF. - COMPOUNDED PRESCRIPTION Blood pressure monitor for home use. Dx: I10 - OXYGEN-AIR DELIVERY SYSTEMS DEVICE as necessary Meds Comments as of 07/03/2019: Not using nicorette gum or lozenge but will be starting Problem List As Of Date 06/02/2024 Noted Reso (more content not included)... Normal [facility] DENIA GONZALEZ ([id number]) 1955 F Date Time Provider Department 03/21/24 YOSEPH FALL [facility] During your visit today, we recorded the following information about you: Judy Bliss RN 03/21/2024 3:52 PM Signed Patient's significant other Mike calls and states that patient does not leave house. Mike reports that patient has a gum infection and that patient needs antibiotic for this gum infection. Mike reports that patient cannot come into appointment because she does not leave house. Mike asking if an antibiotic can be sent to pharmacy for gum infection? Please review and advise, KAREN Werner Ashley, APRN.[facility] 03/22/2024 8:51 AM Signed The following approved medication requests have been transmitted electronically. Requested Prescriptions Signed Prescriptions Disp Refills amoxicillin (AMOXIL) 875 mg tablet 20 tablet 0 Sig: Take 1 tablet by mouth two times a day for 10 days. Authorizing Provider: IMAN PERSON APRN.Vickie Miller LPN 03/22/2024 9:04 AM Signed left message to notify patient that med has been sent into pharmacy. Vickie Niño LPN Allergies As of Date: 03/21/2024 (No Known Allergies) Date Reviewed: 11/29/2023 Reviewed by: Sanjana Baca MA - Fully Assessed Reason for Visit: Patient Question [1477] Primary Visit Diagnosis:Oral infection [K12.2] Order(s):amoxicillin (AMOXIL) 875 mg tabletTake 1 tablet by mouth two times a day for 10 days.Disp: 20 tabletRfl: 0 Prescriptions as of 03/22/2024 - amoxicillin (AMOXIL) 875 mg tablet Take 1 tablet by mouth two times a day for 10 days. - HYDROcodone-acetamin ophen (NORCO) 5-325 mg per tablet Take 1 tablet by mouth two times a day as needed for pain for up to 30 days. - predniSONE (DELTASONE) 10 mg tablet Take 1.5 tablets by mouth every other day. - albuterol HFA (VENTOLIN HFA) 90 mcg/actuation inhaler Inhale 2 Puffs as instructed every 4 hours as needed. - ipratropium-albutero l (DUONEB) 0.5 mg-3 mg(2.5 mg base)/3 mL nebu inhale 1 ampule via nebulizer every 4 hours if needed for wheezing. Use over 5 to 15 minutes - nystatin (MYCOSTATIN) 100,000 unit/mL suspension Take 5 mL by mouth four times daily. 1tsp swish in mouth for several minutes, then swallow (or expectorate) 4 times daily until gone. - fluticasone-salmeter ol (ADVAIR DISKUS) 500-50 mcg/dose dsdv Inhale 1 Puff as instructed two times a day. Rinse and gargle mouth with water after use. - cyclobenzaprine (FLEXERIL) 10 mg tablet Take 1 tablet by mouth two times a day as needed for muscle spasm. - rOPINIRole (REQUIP) 0.25 mg tablet Take 1 tablet by mouth daily at bedtime. - fluticasone (FLONASE) 50 mcg/actuation nasal spray use 2 sprays in each nostril daily. Rinse mouth after use - sertraline (ZOLOFT) 100 mg tablet Take 2 tablets by mouth once daily. - montelukast (SINGULAIR) 10 mg tablet ONE -TWO TABS Q 4HOURS PRN - verapamil SR (CALAN SR) 240 mg CR tablet Take 1 tablet by mouth daily at bedtime. - Cholecalciferol, Vitamin D3, 50 mcg (2,000 unit) cap Take 1 capsule by mouth once daily. - omeprazole (PRILOSEC) 20 mg capsule Take 1 capsule by mouth once daily. ON AN EMPTY STOMACH - tiotropium (SPIRIVA) 18 mcg inhalation capsule Inhale 1 capsule as instructed once daily. - Nicotine Polacrilex [address] 1 Lozenge between cheek and gum as needed. - Nebulizer and Compressor For Neb Use as directed. Dx: COPD J44.9 - Nebulizer Accessories [facility] Mask and supplies as needed - PULSE OXIMETER [facility] Use as directed to check oxygen saturation level - ammonium lactate (AMLACTIN) 12 % lotion Apply 1 application to affected area as needed for Dry Skin. - losartan (COZAAR) 50 mg tablet Take 0.5 tablets by mouth once daily. - OXYGEN, HOME THERAPY, 2.5 L/min by Nasal Cannula route continuous. Use as directred - Disposable Gloves (DISPOSABLE LATEX-FREE GLOVES) [facility] 1 Box once every month. ICD 10: M15.9, J44.9, M54.40 - Incontinence Pad, Liner, Disp (POISE PADS) pads Use pads as directed. Dx: N39.46 - COMPOUNDED PRESCRIPTION BLOOD PRESSURE CUFF FOR HOME USE. DX: HYPERTENSION I10. AUTOMATIC CUFF. - COMPOUNDED PRESCRIPTION Blood pressure monitor for home use. Dx: I10 - OXYGEN-AIR DELIVERY SYSTEMS DEVICE as necessary Meds Comments as of 07/03/2019: Not using nicorette gum or lozenge but will be starting Problem List As Of Date 03/21/2024 Noted Resolved Other and unspecified alcohol dependence, unspe* 08/11/2018 LUNG CANCER [C34.10] 04/13/2005 06/27/2016 MALIG NEOPLASM BRONCH/LUNG NOS [C34.90] 12/08/2006 DYSTHYMIC DISORDER [F34.1] TOBACCO USE DISORDER [F17.200] 08/21/2005 Stage 3 severe COPD by GOLD classification (HCC*09/28/2005 Asthma [J45.909] GENERAL OSTEOARTHROSIS [M15.9] Essential hypertension, benign [I10] GENERALIZED ANXIETY DIS [F41.1] ABNORMAL PAP S (more content not included)... Normal [facility] 02-03-2024 CNPN Telephone (FAMPWS) DENIA GONZALEZ ([id number]) 1955 F Date Time Provider Department 02/03/24 YOSEPH FALL [facility] During your visit today, we recorded the following information about you: Judy Bliss RN 02/03/2024 5:00 PM Signed Patient's significant other calls and states that he thinks she has a gum infection. Left side bottom of the face. Daughter and Patient had called previously and said that patient has had a toothache x 1 week. Patient and daughter was advised by previous triage nurse that patient needs to be seen in office for evaluation. Significant other calling again to see if provider can send in antibiotic. Please review and advise, KAREN Werner Mark D, MD 02/04/2024 8:17 AM Signed OK for amoxicillin as ordered. If she does not improve over the weekend she would need to be seen. MD Felicia Chopra [place], MA 02/04/2024 8:26 AM Signed Pt informed, verbalized understanding. Lauren Duarte MA Allergies As of Date: 02/03/2024 (No Known Allergies) Date Reviewed: 11/29/2023 Reviewed by: Sanjana Baca MA - Fully Assessed Reason for Visit: Patient Question [4310] Order(s):amoxicillin (AMOXIL) 875 mg tabletTake 1 tablet by mouth two times a day for 10 days.Disp: 20 tabletRfl: 0 Prescriptions as of 02/04/2024 - amoxicillin (AMOXIL) 875 mg tablet Take 1 tablet by mouth two times a day for 10 days. - HYDROcodone-acetamin ophen (NORCO) 5-325 mg per tablet Take 1 tablet by mouth two times a day as needed for pain for up to 30 days. - nystatin (MYCOSTATIN) 100,000 unit/mL suspension Take 5 mL by mouth four times daily. 1tsp swish in mouth for several minutes, then swallow (or expectorate) 4 times daily until gone. - fluticasone-salmeter ol (ADVAIR DISKUS) 500-50 mcg/dose dsdv Inhale 1 Puff as instructed two times a day. Rinse and gargle mouth with water after use. - cyclobenzaprine (FLEXERIL) 10 mg tablet Take 1 tablet by mouth two times a day as needed for muscle spasm. - rOPINIRole (REQUIP) 0.25 mg tablet Take 1 tablet by mouth daily at bedtime. - ipratropium-albutero l (DUONEB) 0.5 mg-3 mg(2.5 mg base)/3 mL nebu inhale 1 ampule via nebulizer every 4 hours if needed for wheezing. Use over 5 to 15 minutes - fluticasone (FLONASE) 50 mcg/actuation nasal spray use 2 sprays in each nostril daily. Rinse mouth after use - sertraline (ZOLOFT) 100 mg tablet Take 2 tablets by mouth once daily. - montelukast (SINGULAIR) 10 mg tablet ONE -TWO TABS Q 4HOURS PRN - verapamil SR (CALAN SR) 240 mg CR tablet Take 1 tablet by mouth daily at bedtime. - Cholecalciferol, Vitamin D3, 50 mcg (2,000 unit) cap Take 1 capsule by mouth once daily. - omeprazole (PRILOSEC) 20 mg capsule Take 1 capsule by mouth once daily. ON AN EMPTY STOMACH - tiotropium (SPIRIVA) 18 mcg inhalation capsule Inhale 1 capsule as instructed once daily. - Nicotine Polacrilex [address] 1 Lozenge between cheek and gum as needed. - predniSONE (DELTASONE) 10 mg tablet Take 1.5 tablets by mouth every other day. - albuterol HFA (VENTOLIN HFA) 90 mcg/actuation inhaler Inhale 2 Puffs as instructed every 4 hours as needed. - Nebulizer and Compressor For Neb Use as directed. Dx: COPD J44.9 - Nebulizer [facility] Mask and supplies as needed - PULSE OXIMETER [facility] Use as directed to check oxygen saturation level - ammonium lactate (AMLACTIN) 12 % lotion Apply 1 application to affected area as needed for Dry Skin. - losartan (COZAAR) 50 mg tablet Take 0.5 tablets by mouth once daily. - OXYGEN, HOME THERAPY, 2.5 L/min by Nasal Cannula route continuous. Use as directred - Disposable Gloves (DISPOSABLE LATEX-FREE GLOVES) misc 1 Box once every month. ICD 10: M15.9, J44.9, M54.40 - Incontinence Pad, Liner, Disp (POISE PADS) pads Use pads as directed. Dx: N39.46 - COMPOUNDED PRESCRIPTION BLOOD PRESSURE CUFF FOR HOME USE. DX: HYPERTENSION I10. AUTOMATIC CUFF. - COMPOUNDED PRESCRIPTION Blood pressure monitor for home use. Dx: I10 - OXYGEN-AIR DELIVERY SYSTEMS DEVICE as necessary Meds Comments as of 07/03/2019: Not using nicorette gum or lozenge but will be starting Problem List As Of Date 02/03/2024 Noted Resolved Other and unspecified alcohol dependence, unspe* 08/11/2018 LUNG CANCER [C34.10] 04/13/2005 06/27/2016 MALIG NEOPLASM BRONCH/LUNG NOS [C34.90] 12/08/2006 DYSTHYMIC DISORDER [F34.1] TOBACCO USE DISORDER [F17.200] 08/21/2005 Stage 3 severe COPD by GOLD classification (HCC*09/28/2005 Asthma [J45.909] GENERAL OSTEOARTHROSIS [M15.9] Essential hypertension, benign [I10] GENERALIZED ANXIETY DIS [F41.1] ABNORMAL PAP SMEAR OF CERVIX NEC AND HPV [R89.6] ESOPHAGEAL REFLUX [K21.9] 03/22/2007 Back pain [M54.9] 10/21/2010 07/15/2021 Cholelithiasis with acute cholangitis with bili*06/21/2016 06/27/2016 Constipation [K59.00] 06/21/2016 (more content not included)... [facility] ([id number]) 1955 F Date Time Provider Department 02/03/24 YOSEPH FALL During your visit today, we recorded the following information about you: Cami Louie RN 02/03/2024 1:25 PM Signed Daughter reports patient has had a toothache for 1 week, and asking if pcp could prescribe an AB until she sees a dentist. Does not know when patient will see a dentist at this time. Patient is on the line with daughter. Advised patient would need an appt in order for provider to prescribe medication. Advised pcp does not have opening today and patient could go to for evaluation. Patient and daughter agreeable. Allergies As of Date: 02/03/2024 (No Known Allergies) Date Reviewed: 11/29/2023 Reviewed by: Sanjana Baca MA - Fully Assessed Reason for Visit: Patient Question [9297] Prescriptions as of 02/03/2024 - HYDROcodone-acetamin ophen (NORCO) 5-325 mg per tablet Take 1 tablet by mouth two times a day as needed for pain for up to 30 days. - nystatin (MYCOSTATIN) 100,000 unit/mL suspension Take 5 mL by mouth four times daily. 1tsp swish in mouth for several minutes, then swallow (or expectorate) 4 times daily until gone. - fluticasone-salmeter ol (ADVAIR DISKUS) 500-50 mcg/dose dsdv Inhale 1 Puff as instructed two times a day. Rinse and gargle mouth with water after use. - cyclobenzaprine (FLEXERIL) 10 mg tablet Take 1 tablet by mouth two times a day as needed for muscle spasm. - rOPINIRole (REQUIP) 0.25 mg tablet Take 1 tablet by mouth daily at bedtime. - ipratropium-albutero l (DUONEB) 0.5 mg-3 mg(2.5 mg base)/3 mL nebu inhale 1 ampule via nebulizer every 4 hours if needed for wheezing. Use over 5 to 15 minutes - fluticasone (FLONASE) 50 mcg/actuation nasal spray use 2 sprays in each nostril daily. Rinse mouth after use - sertraline (ZOLOFT) 100 mg tablet Take 2 tablets by mouth once daily. - montelukast (SINGULAIR) 10 mg tablet ONE -TWO TABS Q 4HOURS PRN - verapamil SR (CALAN SR) 240 mg CR tablet Take 1 tablet by mouth daily at bedtime. - Cholecalciferol, Vitamin D3, 50 mcg (2,000 unit) cap Take 1 capsule by mouth once daily. - omeprazole (PRILOSEC) 20 mg capsule Take 1 capsule by mouth once daily. ON AN EMPTY STOMACH - tiotropium (SPIRIVA) 18 mcg inhalation capsule Inhale 1 capsule as instructed once daily. - Nicotine Polacrilex [address] 1 Lozenge between cheek and gum as needed. - predniSONE (DELTASONE) 10 mg tablet Take 1.5 tablets by mouth every other day. - albuterol HFA (VENTOLIN HFA) 90 mcg/actuation inhaler Inhale 2 Puffs as instructed every 4 hours as needed. - Nebulizer and Compressor For Neb Use as directed. Dx: COPD J44.9 - Nebulizer Accessories [facility] Mask and supplies as needed - PULSE OXIMETER [facility] Use as directed to check oxygen saturation level - ammonium lactate (AMLACTIN) 12 % lotion Apply 1 application to affected area as needed for Dry Skin. - losartan (COZAAR) 50 mg tablet Take 0.5 tablets by mouth once daily. - OXYGEN, HOME THERAPY, 2.5 L/min by Nasal Cannula route continuous. Use as directred - Disposable Gloves (DISPOSABLE LATEX-FREE GLOVES) [facility] 1 Box once every month. ICD 10: M15.9, J44.9, M54.40 - Incontinence Pad, Liner, Disp (POISE PADS) pads Use pads as directed. Dx: N39.46 - COMPOUNDED PRESCRIPTION BLOOD PRESSURE CUFF FOR HOME USE. DX: HYPERTENSION I10. AUTOMATIC CUFF. - COMPOUNDED PRESCRIPTION Blood pressure monitor for home use. Dx: I10 - OXYGEN-AIR DELIVERY SYSTEMS DEVICE as necessary Meds Comments as of 07/03/2019: Not using nicorette gum or lozenge but will be starting Problem List As Of Date 02/03/2024 Noted Resolved Other and unspecified alcohol dependence, unspe* 08/11/2018 LUNG CANCER [C34.10] 04/13/2005 06/27/2016 MALIG NEOPLASM BRONCH/LUNG NOS [C34.90] 12/08/2006 DYSTHYMIC DISORDER [F34.1] TOBACCO USE DISORDER [F17.200] 08/21/2005 Stage 3 severe COPD by GOLD classification (HCC*09/28/2005 Asthma [J45.909] GENERAL OSTEOARTHROSIS [M15.9] Essential hypertension, benign [I10] GENERALIZED ANXIETY DIS [F41.1] ABNORMAL PAP SMEAR OF CERVIX NEC AND HPV [R89.6] ESOPHAGEAL REFLUX [K21.9] 03/22/2007 Back pain [M54.9] 10/21/2010 07/15/2021 Cholelithiasis with acute cholangitis with bili*06/21/2016 06/27/2016 Constipation [K59.00] 06/21/2016 06/27/2016 Bacteremia [R78.81] 06/23/2016 06/27/2016 Splenic lesion [D73.89] 06/25/2016 Calculus of bile duct with acute cholangitis wi*06/30/2016 MRSA bacteremia [R78.81, B95.62] 06/30/2016 03/22/2017 S/P laparoscopic cholecystectomy [Z90.49] 08/06/2016 le [Z51.81] 05/16/2021 Chronic respiratory failure with hypoxia (HCC) *02/20/2022 Cigarette smoker [F17.210] 02/20/2022 Obstructive chronic bronchitis with exacerbatio* Encounter Status:Closed by Cami LOUIE on 02/03/24 [facility] 11-08-2023 [facility] Telephone (INTMWS) DENIA GONZALEZ ([id number]) 1955 F Date Time Provider Department 11/08/23 YOSEPH FALL INTWS During your visit today, we recorded the following information about you: Ban Villafana LPN 11/08/2023 9:27 AM Signed The office rec'd and completed an electronic PA for cyclobenzapine. This was denied. Why did we deny your request? We denied this request under Medicare Part D because: The information received from your physician does not support approval of this drug under your Medicare Part D benefit because the Food and Drug Administration (FDA) has not approved the use of the requested medication for the diagnosis provided and/or use of the requested medication for the diagnosis provided is not listed in any of the clinical resources approved by the Centers for Medicare and Medicaid Services (CMS) for use in evaluating Part D coverage. Your plan's formulary has a restriction on this drug. This restriction has been approved by [facility]. This restriction only applies to patients greater than or equal to 65 years of age. Coverage is provided when the diagnosis provided by your prescriber is considered a Medicare Part D use of the medication and your physician confirms they have weighed the safety versus benefit of this medication. Examples of common Medicare Part D covered uses are treatment of acute musculoskeletal conditions or acute muscle spasms. We based this decision on the coverage criteria for: [address] [place] Standard MEDD Prior Authorization Policy - HIGH RISK MEDICATIONS - CYCLOBENZAPRINE Allergies As of Date: 11/08/2023 (No Known Allergies) Date Reviewed: 08/23/2023 Reviewed by: Naima Haines MA - Fully Assessed Reason for Visit: Insurance Authorization [[id number]] Prescriptions as of 11/08/2023 - cyclobenzaprine (FLEXERIL) 10 mg tablet Take 1 tablet by mouth two times a day as needed for muscle spasm. - HYDROcodone-acetamin ophen (NORCO) 5-325 mg per tablet Take 1 tablet by mouth two times a day as needed for pain for up to 30 days. - nicotine (NICODERM) 7 mg/24 hr Apply 1 Patch as directed every 24 hours. - rOPINIRole (REQUIP) 0.25 mg tablet Take 1 tablet by mouth daily at bedtime. - tiZANidine (ZANAFLEX) 4 mg tablet Take 1 tablet by mouth every 8 hours as needed (muscle spasms). - ipratropium-albutero l (DUONEB) 0.5 mg-3 mg(2.5 mg base)/3 mL nebu inhale 1 ampule via nebulizer every 4 hours if needed for wheezing. Use over 5 to 15 minutes - fluticasone (FLONASE) 50 mcg/actuation nasal spray use 2 sprays in each nostril daily. Rinse mouth after use - sertraline (ZOLOFT) 100 mg tablet Take 2 tablets by mouth once daily. - montelukast (SINGULAIR) 10 mg tablet ONE -TWO TABS Q 4HOURS PRN - verapamil SR (CALAN SR) 240 mg CR tablet Take 1 tablet by mouth daily at bedtime. - Cholecalciferol, Vitamin D3, 50 mcg (2,000 unit) cap Take 1 capsule by mouth once daily. - nystatin (MYCOSTATIN) 100,000 unit/mL suspension Take 5 mL by mouth four times daily. 1tsp swish in mouth for several minutes, then swallow (or expectorate) 4 times daily until gone. - omeprazole (PRILOSEC) 20 mg capsule Take 1 capsule by mouth once daily. ON AN EMPTY STOMACH - tiotropium (SPIRIVA) 18 mcg inhalation capsule Inhale 1 capsule as instructed once daily. - Nicotine Polacrilex [address] 1 Lozenge between cheek and gum as needed. - predniSONE (DELTASONE) 10 mg tablet Take 1.5 tablets by mouth every other day. - fluticasone-salmeter ol (ADVAIR DISKUS) 500-50 mcg/dose dsdv Inhale 1 Puff as instructed two times a day. Rinse and gargle mouth with water after use. - albuterol HFA (VENTOLIN HFA) 90 mcg/actuation inhaler Inhale 2 Puffs as instructed every 4 hours as needed. - Nebulizer and Compressor For Neb Use as directed. Dx: COPD J44.9 - Nebulizer Accessories [facility] Mask and supplies as needed - PULSE OXIMETER [facility] Use as directed to check oxygen saturation level - ammonium lactate (AMLACTIN) 12 % lotion Apply 1 application to affected area as needed for Dry Skin. - losartan (COZAAR) 50 mg tablet Take 0.5 tablets by mouth once daily. - OXYGEN, HOME THERAPY, 2.5 L/min by Nasal Cannula route continuous. Use as directred - Disposable Gloves (DISPOSABLE LATEX-FREE GLOVES) [facility] 1 Box once every month. ICD 10: M15.9, J44.9, M54.40 - Incontinence Pad, Liner, Disp (POISE PADS) pads Use pads as directed. Dx: N39.46 - COMPOUNDED PRESCRIPTION BLOOD PRESSURE CUFF FOR HOME USE. DX: HYPERTENSION I10. AUTOMATIC CUFF. - COMPOUNDED PRESCRIPTION Blood pressure monitor for home use. Dx: I10 - OXYGEN-AIR DELIVERY SYSTEMS DEVICE as necessary Meds Comments as of 07/03/2019: Not using nicorette gum or lozenge but will be starting Problem List As Of Date 11/08/2023 Noted Resolved Other and unspecified alcohol dependence, unspe* 08/11/2018 LUNG CANCER [C34.10] (more content not included)... Normal [facility] CNPNon 10-22-2023 CNPN Telephone (4CQ) DENIA GONZALEZ ([id number]) 1955 F Date Time Provider Department 10/22/23 YOSEPH FALL 4CQ During your visit today, we recorded the following information about you: Shira Velez 10/22/2023 10:21 AM Signed Pt has requested that an antibiotic is called in for her. States she was just seen in the Emergency Room last week, however; is still having a discolored mucus with cough. Please advise. Naima Haines MA 10/22/2023 10:26 AM Signed ER report attached. Scan on 10/18/2023 6:02 AM by Provider, External, PALeobardoC: Consultation - Emergency Medicine Yoseph Fall MD 10/22/2023 11:48 AM Signed Did she get any better with the Zpak she was given in the ER? If so I would consider refill of that. If it did not help would use a different antibiotic. MD Zaki Chopra Kathryn, MA 10/22/2023 11:54 AM Signed Tried to reach pt, line picks up, can hear back ground noise but no one says anything. Will try again later. JOS Sandy Kathryn MA 10/22/2023 1:11 PM Signed No fevers. She is coughing a little bit. The congestion has mostly cleared. She did get some improvement with the zpak she was given but doesn't feel that the infection is completely resolved. Please advise. Notify pt with providers decision. [facility]ses [facility]. JOS Sandy Mark D, MD 10/22/2023 2:14 PM Signed OK for another Zpak as ordered MD Shirley Chopra Beth, LPN 10/22/2023 2:22 PM Signed Phoned patient and went over notes from Dr Fall with understanding. Aware rx sent to pharmacy. Allergies As of Date: 10/22/2023 (No Known Allergies) Date Reviewed: 08/23/2023 Reviewed by: Naima Haines MA - Fully Assessed Reason for Visit: Medication Request [138] Cmt: Requesting antibiotic Visit Diagnosis:Bronchitis [J40] Order(s):azithromyci n (ZITHROMAX Z-DAHLIA) 250 mg tabletTake 2 tablets day one, then, 1 tablet daily until gone.Disp: 6 tabletRfl: 0 Prescriptions as of 10/22/2023 - azithromycin (ZITHROMAX Z-DAHLIA) 250 mg tablet Take 2 tablets day one, then, 1 tablet daily until gone. - HYDROcodone-acetamin ophen (NORCO) 5-325 mg per tablet Take 1 tablet by mouth two times a day as needed for pain for up to 30 days. - nicotine (NICODERM) 7 mg/24 hr Apply 1 Patch as directed every 24 hours. - rOPINIRole (REQUIP) 0.25 mg tablet Take 1 tablet by mouth daily at bedtime. - tiZANidine (ZANAFLEX) 4 mg tablet Take 1 tablet by mouth every 8 hours as needed (muscle spasms). - ipratropium-albutero l (DUONEB) 0.5 mg-3 mg(2.5 mg base)/3 mL nebu inhale 1 ampule via nebulizer every 4 hours if needed for wheezing. Use over 5 to 15 minutes - fluticasone (FLONASE) 50 mcg/actuation nasal spray use 2 sprays in each nostril daily. Rinse mouth after use - sertraline (ZOLOFT) 100 mg tablet Take 2 tablets by mouth once daily. - montelukast (SINGULAIR) 10 mg tablet ONE -TWO TABS Q 4HOURS PRN - verapamil SR (CALAN SR) 240 mg CR tablet Take 1 tablet by mouth daily at bedtime. - Cholecalciferol, Vitamin D3, 50 mcg (2,000 unit) cap Take 1 capsule by mouth once daily. - nystatin (MYCOSTATIN) 100,000 unit/mL suspension Take 5 mL by mouth four times daily. 1tsp swish in mouth for several minutes, then swallow (or expectorate) 4 times daily until gone. - omeprazole (PRILOSEC) 20 mg capsule Take 1 capsule by mouth once daily. ON AN EMPTY STOMACH - tiotropium (SPIRIVA) 18 mcg inhalation capsule Inhale 1 capsule as instructed once daily. - Nicotine Polacrilex [address] 1 Lozenge between cheek and gum as needed. - predniSONE (DELTASONE) 10 mg tablet Take 1.5 tablets by mouth every other day. - fluticasone-salmeter ol (ADVAIR DISKUS) 500-50 mcg/dose dsdv Inhale 1 Puff as instructed two times a day. Rinse and gargle mouth with water after use. - albuterol HFA (VENTOLIN HFA) 90 mcg/actuation inhaler Inhale 2 Puffs as instructed every 4 hours as needed. - Nebulizer and Compressor For Neb Use as directed. Dx: COPD J44.9 - Nebulizer Accessories [facility] Mask and supplies as needed - PULSE OXIMETER [facility] Use as directed to check oxygen saturation level - ammonium lactate (AMLACTIN) 12 % lotion Apply 1 application to affected area as needed for Dry Skin. - losartan (COZAAR) 50 mg tablet Take 0.5 tablets by mouth once daily. - OXYGEN, HOME THERAPY, 2.5 L/min by Nasal Cannula route continuous. Use as directred - Disposable Gloves (DISPOSABLE LATEX-FREE GLOVES) [facility] 1 Box once every month. ICD 10: M15.9, J44.9, M54.40 - Incontinence Pad, Liner, Disp (POISE PADS) pads Use pads as directed. Dx: N39.46 - COMPOUNDED PRESCRIPTION BLOOD PRESSURE CUFF FOR HOME USE. DX: HYPERTENSION I10. AUTOMATIC CUFF. - COMPOUNDED PRESCRIPTION Blood pressure monitor for home use. Dx: I10 - OXYGEN-AIR DELIVERY SYSTEMS DEVICE as necessary Meds Co (more content not included)... Normal [facility] 12 Lead EKGon 10-18-2023 12 Lead EKG [facility] Cardiovascular Services [address] [place] [address] 12 Lead EKG 10/18/23 0102 MR#: [id number] Acct: [id number] Name: DENIA GONZALEZ Rep #: [id number] : 1955 68 From: Junito Madrid MD Attending Dr: Status: DEP ER Ordering Dr: Riley Jeff DO Date: 10/18/23 Location: ED Sex: F C Admitted: Test Reason : SOB Blood Pressure : / mmHG Vent. Rate : 130 BPM Atrial Rate : 130 BPM P-R Int : 150 ms QRS Dur : 076 ms QT Int : 304 ms P-R-T Axes : 086 034 078 degrees QTc Int : 447 ms Sinus tachycardia Right atrial enlargement Borderline ECG Confirmed by Junito Madrid ([id number]), photographic editor LEORA RESTREPO ([id number]) on 10/19/2023 8:02:54 AM Referred By: RUTH Confirmed By:Junito Madrid 10/19/23 0802 Date Junito Madrid MD CC: Dr. Yoseph Fall MD; Riley Jeff DO Signed Normal [facility] BNP,B-Type NATRIURETIC PEPTI Vicente 10-18-2023 Natriuretic peptide B (Bld) [Mass/Vol] 128.6 pg/mL High 0-100 [facility] Comment on above: Performed By: #### L 501.5200, L100.0100, L500.2500, L503.6620 ####[facility] [address] [place], [address] Basic Metabolic Profile (BMP )on 10-18-2023 BUN/CRE 34.7 RATIO High 10-20 [facility] Comment on above: Performed By: #### L 501.5200, L100.0100, L500.2500, L503.6620 ####[facility] [address] [place], [address] CA,Total 9.2 mg/dL Normal 8.5-10.1 [facility] Comment on above: Performed By: #### L 501.5200, L100.0100, L500.2500, L503.6620 ####[facility] [address] [place], [address] Chloride [Moles/Vol] 99 mmol/L Normal 98-107 [facility] Comment on above: Performed By: #### L 501.5200, L100.0100, L500.2500, L503.6620 ####[facility] [address] [place], [address] CO2 [Moles/Vol] 29.0 mmol/L Normal 21.0-32.0 [facility] Comment on above: Performed By: #### L 501.5200, L100.0100, L500.2500, L503.6620 ####[facility] [address] [place], [address] Creatinine [Mass/Vol] 0.66 mg/dL Normal 0.55-1.02 [facility] Comment on above: Result Comment: The validity of the calculated GFR GFRAA in patients over 70 years has not been determined. Clinical correlation is essential. Performed By: #### L 501.5200, L100.0100, L500.2500, L503.6620 ####[facility] [address] [place], [address] ECRCL 65.56 ml/min Normal [facility] Comment on above: Performed By: #### L 501.5200, L100.0100, L500.2500, L503.6620 ####[facility] [address] [place], [address] EST GFR - AA 114 mL/min Normal >60 [facility] Comment on above: Result Comment: Afri can Mauritian GFR Calc Performed By: #### L 501.5200, L100.0100, L500.2500, L503.6620 ####[facility] [address] [place], [address] GAP 10 Normal 5-15 [facility] Comment on above: Performed By: #### L 501.5200, L100.0100, L500.2500, L503.6620 ####[facility] [address] [place], [address] GFR/1.73 sq M.predicted among non-blacks MDRD (S/P/Bld) [Vol rate/Area] 94 mL/min/{1.73_m2} Normal >60 [facility] Comment on above: Result Comment: Non- GFR Calc Performed By: #### L 501.5200, L100.0100, L500.2500, L503.6620 ####[facility] [address] [place], [address] Glucose [Mass/Vol] 80 mg/dL Normal 74-106 [facility] Comment on above: Performed By: #### L 501.5200, L100.0100, L500.2500, L503.6620 ####[facility] [address] [place], [address] Potassium [Moles/Vol] 3.8 mmol/L Normal 3.5-5.1 [facility] Comment on above: Performed By: #### L 501.5200, L100.0100, L500.2500, L503.6620 ####[facility] [address] [place], [address] Sodium [Moles/Vol] 138 mmol/L Normal 136-145 [facility] Comment on above: Performed By: #### L 501.5200, L100.0100, L500.2500, L503.6620 ####[facility] [address] [place], [address] Urea nitrogen [Mass/Vol] 23 mg/dL High 7-18 [facility] Comment on above: Performed By: #### L 501.5200, L100.0100, L500.2500, L503.6620 ####[facility] [address] [place], [address] CBC W/Diff, Automatedon 06-2 4-2023 Absolute Lymph 2.10 X10 3/uL Normal 0.83-4.51 [facility] Comment on above: Performed By: #### L 501.5200, L100.0100, L500.2500, L503.6620 ####[facility] [address] [place], [address] Absolute Neut 9.9 X10 3/uL High 2.0-7.7 [facility] Comment on above: Performed By: #### L 501.5200, L100.0100, L500.2500, L503.6620 ####[facility] [address] [place], [address] Basophils/100 WBC (Bld) 0.3 % Normal 0-1 [facility] Comment on above: Performed By: #### L 501.5200, L100.0100, L500.2500, L503.6620 ####[facility] [address] [place], [address] Eosinophils/100 WBC (Bld) 0.2 % Normal 0-5 [facility] Comment on above: Performed By: #### L 501.5200, L100.0100, L500.2500, L503.6620 ####[facility] [address] [place], [address] Erythrocyte distribution width (RBC) [Ratio] 13.6 % Normal 11.6-14.6 [facility] Comment on above: Performed By: #### L 501.5200, L100.0100, L500.2500, L503.6620 ####[facility] [address] [place], [address] Hematocrit (Bld) [Volume fraction] 41.2 % Normal 37-47 [facility] Comment on above: Performed By: #### L 501.5200, L100.0100, L500.2500, L503.6620 ####[facility] [address] [place], [address] Hemoglobin (Bld) [Mass/Vol] 13.1 g/dL Normal 12.0-15.0 [facility] Comment on above: Performed By: #### L 501.5200, L100.0100, L500.2500, L503.6620 ####[facility] [address] [place], [address] IG% 0.300 Normal 0.0-0.9 [facility] Comment on above: Result Comment: IG% - Immature Granulocytes (promyelocytes, myelocytes and metamyelocytes) > 1% indicates that a LEFT SHIFT is Present. Performed By: #### L 501.5200, L100.0100, L500.2500, L503.6620 ####[facility] [address] [place], [address] Lymphocytes/100 WBC (Bld) 16.2 % Low 19-41 [facility] Comment on above: Performed By: #### L 501.5200, L100.0100, L500.2500, L503.6620 ####[facility] [address] [place], [address] MCH (RBC) [Entitic mass] 26.9 pg Low 27.0-32.0 [facility] Comment on above: Performed By: #### L 501.5200, L100.0100, L500.2500, L503.6620 ####[facility] [address] [place], [address] MCHC (RBC) [Mass/Vol] 31.8 g/dL Low 32-36 [facility] Comment on above: Performed By: #### L 501.5200, L100.0100, L500.2500, L503.6620 ####[facility] [address] [place], [address] MCV (RBC) [Entitic vol] 84.6 fL Normal 81-99 [facility] Comment on above: Performed By: #### L 501.5200, L100.0100, L500.2500, L503.6620 ####[facility] [address] [place], [address] Monocytes/100 WBC (Bld) 7.2 % Normal 0-10 [facility] Comment on above: Performed By: #### L 501.5200, L100.0100, L500.2500, L503.6620 ####[facility] [address] [place], [address] Neutrophils/100 WBC (Bld) 75.8 % High 47-70 [facility] Comment on above: Performed By: #### L 501.5200, L100.0100, L500.2500, L503.6620 ####[facility] [address] [place], [address] Nucleated RBC (Bld) [#/Vol] 0 10*3/uL Normal 0-5 [facility] Comment on above: Performed By: #### L 501.5200, L100.0100, L500.2500, L503.6620 ####[facility] [address] [place], [address] Platelet mean volume (Bld) [Entitic vol] 9.5 fL Normal 6.2-12.0 [facility] Comment on above: Performed By: #### L 501.5200, L100.0100, L500.2500, L503.6620 ####[facility] [address] [place], [address] Platelets (Bld) [#/Vol] 272 10*3/uL Normal 150-450 [facility] Comment on above: Performed By: #### L 501.5200, L100.0100, L500.2500, L503.6620 ####[facility] [address] [place], [address] RBC (Bld) [#/Vol] 4.87 10*6/uL Normal 4.2-5.4 [facility] Comment on above: Performed By: #### L 501.5200, L100.0100, L500.2500, L503.6620 ####[facility] [address] [place], [address] RDW SD 42.2 fl Normal 35.1-43.9 [facility] Comment on above: Performed By: #### L 501.5200, L100.0100, L500.2500, L503.6620 ####[facility] [address] [place], [address] WBC (Bld) [#/Vol] 13.0 10*3/uL High 4.4-11.0 [facility] Comment on above: Performed By: #### L 501.5200, L100.0100, L500.2500, L503.6620 ####[facility] [address] [place], [address] Chest PA and Lateralon 10-17 Chest PA and Lateral [facility] Imaging Services [address] [place] [address] Chest PA and Lateral MR#: [id number] Acct: [id number] Name: CARLOSDENIA S Rep #: [id number] : 1955 F 68 From: Nona Liu PCP: Dr. Yoseph Fall MD Status: REG ER Study: Chest PA and Lateral Date of Exam: 10/18/23 Exam# [id number] Ordering Dr: Riley Jeff DO [id number] INDICATION: dyspnea EXAMINATION/TECHNIQU E: X-RAY - XR Chest 2 Views COMPARISON: None. ____ FINDINGS: LINES/DEVICES: None. LUNGS: Hyperinflated. Prominent interstitial markings especially at the lung bases. No consolidation. Small bilateral pleural effusions greater on the right, versus pleural thickening. No pneumothorax. Surgical clips overlying the right mid chest. MEDIASTINUM: Aorta is tortuous and atherosclerotic. CARDIAC SILHOUETTE: Not enlarged. BONES AND SOFT TISSUES: No acute abnormalities. ____ RAD/Chest PA and Lateral IMPRESSION: Findings suggest COPD. Small bilateral pleural effusions versus pleural thickening. No acute infiltrates. Electronically Signed: Nona Aj MD at 2:43 EDT Reading Location ID and State: [facility] / [place] Tel , Service support , CC: Dr. Yoseph Fall MD; Riley Jeff DO [place]: Signed Normal [facility] Emergency Department Summary on 10-18-2023 Emergency Department Summary [facility] Medical Records Department [address] [place] [address] Emergency Department Summary 10/18/23 MR#: [id number] Acct: [id number] Name: DENIA GONZALEZ Rep #: [id number] : 1955 68 From: Riley Jeff DO PCP: Dr. Yoseph Fall MD Status:DEP ER Location: ED HPI History of Present Illness Chief Complaint: Shortness of Breath Informant: patient and EMS Narrative Narrative: Patient is a 68-year-old female with past medical history of tobacco abuse as well as non-small cell lung cancer and COPD who wears 2 L of oxygen 16/11. She reports secondary to COPD she coughs daily. She states however this evening she felt like her cough and shortness of breath were more intense and that despite using her home medications and oxygen she was feeling persistent short of breath and therefore comes in for evaluation. She denies any known sick contacts and she denies any chest pain associated with this. [facility] Medical History (Updated 10/18/23 @ 05:[address] Riley Jeff, DO) Anxiety Depression Smoker On home oxygen therapy Asthma Hypertension Migraines Home Medications ???Medication ???Instructions ???Recorded ???Last Taken ???Type albuterol sulfate 90 mcg/actuation 1 - 2 puff inhalation Q4H PRN PRN 04/18/13 09/23/14 History aerosol inhaler (Ventolin HFA) Bronchodialation cyclobenzaprine 10 mg tablet 10 mg PO Q12H pain 04/18/13 09/23/14 History 10 MG fluticasone propionate 50 1 spray intranasal DAILY nasal 04/18/13 09/23/14 History mcg/actuation nasal congestion spray,suspension montelukast 10 mg tablet 10 mg PO DAILY allergies 04/18/13 09/23/14 History 10 MG omeprazole 20 mg capsule,delayed 20 mg PO DAILY heart burn 04/18/13 09/23/14 History release 20 MG tiotropium bromide 18 mcg capsule 1 puff inhalation DAILY wheezing 04/18/13 09/23/14 History with inhalation device (Spiriva with HandiHaler) verapamil 240 mg tablet,extended 360 mg PO DAILY heart 04/18/13 09/23/14 History release 360 MG Oxygen, Home [Home Oxygen] 2.5 lpm PRN PRN Dyspnea 10/22/13 09/23/14 History sertraline 100 mg tablet 100 mg PO DAILY insomina 10/22/13 09/23/14 History fluticasone 500 mcg-salmeterol 50 1 puff inhalation BID shortness of 10/26/13 09/23/14 Rx mcg/dose blistr powdr for breath ##1 inhalation (Advair Diskus) Ropinirole Hcl 0.25 mg PO QHS restless legs 09/23/14 Unknown History prednisone 10 mg tablet 15 mg PO PRN PRN FLARE UPS 04/03/15 Unknown History ipratropium 0.5 mg-albuterol 3 mg 3 ml inhalation Q4HWA.RT wheezing 05/13/16 Unknown Rx (2.5 mg base)/3 mL nebulization ##30 soln lorazepam 0.5 mg tablet 0.5 mg PO QHS anxiety #7 tabs 05/05/20 Unknown Rx nicotine (polacrilex) 2 mg gum 2 mg buccal Q2H #20 ea 07/22/23 Unknown Rx (Nicorette) azithromycin 250 mg tablet See Rx Instructions PO .COMPLEX #6 10/18/23 Unknown Rx (Zithromax) tabs cholecalciferol (vitamin D3) 50 50 mcg PO DAILY 10/18/23 Unknown History mcg (2,000 unit) capsule (Vitamin D3) ipratropium 0.5 mg-albuterol 3 mg 3 ml inhalation Q6H PRN shortness 10/18/23 Unknown Rx (2.5 mg base)/3 mL nebulization of breath or wheezing #180 mL soln prednisone 20 mg tablet 40 mg (2 x 20 mg) PO DAILY 5 days 10/18/23 Unknown Rx #10 tabs Allergy/AdvReac Type Severity Reaction Status Date / Time No Known Allergies Allergy Verified 07/20/23 02:54 Surgical History History of cholecystectomy Social History Smoking Status: Former smoker ROS ROS ED Constitutional Constitutional ED: Denies chills or fever(s) ENT ENT ED: Denies rhinorrhea or sore throat Cardiovascular Cardiovascular: Reports racing heartbeat; Denies chest pain or palpitations Respiratory/Chest Respiratory/Chest: Reports cough; Denies dyspnea Gastrointestinal Gastrointestinal: Denies abdominal pain, diarrhea, nausea or vomiting Genitourinary Genitourinary ED: Denies dysuria Musculoskeletal Musculoskeletal: Reports myalgias Integumentary Denies rash Neurologic Neurologic: Denies headache(s) Psychiatric Psychiatric: Reports anxiety Hematologic/Lymphati c Hematologic/Lymphati c: Denies easy bleeding or easy bruising EXAM Physical Exam Const Vital Signs: 10/18/23 00:58 10/18/23 01:03 10/18/23 01:10 Temperature 97.2 F L 97.2 F L Temperature Source Temporal Temporal Pulse Rate 132 H 130 H Respiratory Rate 24 H 24 H Respiratory Effort Normal Respiratory Depth Shallow Respiratory Pattern Blood Pressure 135/76 H Blood Pressure Mean 95 Pulse Ox 90 90 Oxygen Delivery Method Nasal Cannula Nasal Cannula Nasal Cannula Oxygen Flow Rate (L/min) 3 3 3 10/18/23 01:34 10/18/23 01:45 10/17 (more content not included)... Normal [facility] M100.678on 10-18-2023 M100.678 SARS-CoV-2 (COVID 19) Negative INFLUENZA A Negative INFLUENZA B Negative RSV PCR Negative Normal [facility] Comment on above: Performed By: #### M 100.678 #### [facility] [address] [place], [place], [address] Magnesiumon 10-18-2023 Magnesium [Mass/Vol] 1.9 mg/dL Normal 1.6-2.6 [facility] Comment on above: Performed By: #### L 501.5200, L100.0100, L500.2500, L503.6620 ####[facility] [address] [place], [place], [address] CNPNon [facility]23 [facility] DENIA GONZALEZ ([id number]) 1955 F Date Time Provider Department 10/01/23 [facility] During your visit today, we recorded the following information about you: Sukhi Marrero, KAREN 10/01/2023 12:01 PM Signed [id number] calls to ask if provider would send in a different prescription than flexeril d/t having to pay for medication. Recommended contacting insurance to see what medication is covered and it was requested to just send something in as they can never get a hold of anyone at the insurance company. Pharmacy is [facility] Mark D, MD 10/01/2023 1:29 PM Signed OK for zanaflex as ordered MD Zaki Chopra Kathryn, MA 10/01/2023 1:48 PM Signed The following approved medication requests have been transmitted electronically. Requested Prescriptions Signed Prescriptions Disp Refills tiZANidine (ZANAFLEX) 4 mg tablet 90 tablet 5 Sig: Take 1 tablet by mouth every 8 hours as needed (muscle spasms). Authorizing Provider: YOSEPH FALL MA Allergies As of Date: 10/01/2023 (No Known Allergies) Date Reviewed: 08/23/2023 Reviewed by: Naima Haines MA - Fully Assessed Reason for Visit: Medication Problem [65] Order(s):tiZANidine (ZANAFLEX) 4 mg tabletTake 1 tablet by mouth every 8 hours as needed (muscle spasms).Disp: 90 tabletRfl: 5 Prescriptions as of 10/01/2023 - tiZANidine (ZANAFLEX) 4 mg tablet Take 1 tablet by mouth every 8 hours as needed (muscle spasms). - ipratropium-albutero l (DUONEB) 0.5 mg-3 mg(2.5 mg base)/3 mL nebu inhale 1 ampule via nebulizer every 4 hours if needed for wheezing. Use over 5 to 15 minutes - HYDROcodone-acetamin ophen (NORCO) 5-325 mg per tablet Take 1 tablet by mouth two times a day as needed for pain for up to 30 days. - fluticasone (FLONASE) 50 mcg/actuation nasal spray use 2 sprays in each nostril daily. Rinse mouth after use - sertraline (ZOLOFT) 100 mg tablet Take 2 tablets by mouth once daily. - montelukast (SINGULAIR) 10 mg tablet ONE -TWO TABS Q 4HOURS PRN - verapamil SR (CALAN SR) 240 mg CR tablet Take 1 tablet by mouth daily at bedtime. - Cholecalciferol, Vitamin D3, 50 mcg (2,000 unit) cap Take 1 capsule by mouth once daily. - nystatin (MYCOSTATIN) 100,000 unit/mL suspension Take 5 mL by mouth four times daily. 1tsp swish in mouth for several minutes, then swallow (or expectorate) 4 times daily until gone. - omeprazole (PRILOSEC) 20 mg capsule Take 1 capsule by mouth once daily. ON AN EMPTY STOMACH - tiotropium (SPIRIVA) 18 mcg inhalation capsule Inhale 1 capsule as instructed once daily. - nicotine (NICODERM) 7 mg/24 hr Apply 1 Patch as directed every 24 hours. - Nicotine Polacrilex [address] 1 Lozenge between cheek and gum as needed. - predniSONE (DELTASONE) 10 mg tablet Take 1.5 tablets by mouth every other day. - fluticasone-salmeter ol (ADVAIR DISKUS) 500-50 mcg/dose dsdv Inhale 1 Puff as instructed two times a day. Rinse and gargle mouth with water after use. - albuterol HFA (VENTOLIN HFA) 90 mcg/actuation inhaler Inhale 2 Puffs as instructed every 4 hours as needed. - Nebulizer and Compressor For Neb Use as directed. Dx: COPD J44.9 - Nebulizer Accessories [facility] Mask and supplies as needed - rOPINIRole (REQUIP) 0.25 mg tablet Take 1 tablet by mouth daily at bedtime. - PULSE OXIMETER [facility] Use as directed to check oxygen saturation level - ammonium lactate (AMLACTIN) 12 % lotion Apply 1 application to affected area as needed for Dry Skin. - losartan (COZAAR) 50 mg tablet Take 0.5 tablets by mouth once daily. - OXYGEN, HOME THERAPY, 2.5 L/min by Nasal Cannula route continuous. Use as directred - Disposable Gloves (DISPOSABLE LATEX-FREE GLOVES) [facility] 1 Box once every month. ICD 10: M15.9, J44.9, M54.40 - Incontinence Pad, Liner, Disp (POISE PADS) pads Use pads as directed. Dx: N39.46 - COMPOUNDED PRESCRIPTION BLOOD PRESSURE CUFF FOR HOME USE. DX: HYPERTENSION I10. AUTOMATIC CUFF. - COMPOUNDED PRESCRIPTION Blood pressure monitor for home use. Dx: I10 - OXYGEN-AIR DELIVERY SYSTEMS DEVICE as necessary Meds Comments as of 07/03/2019: Not using nicorette gum or lozenge but will be starting Problem List As Of Date 10/01/2023 Noted Resolved Other and unspecified alcohol dependence, unspe* 08/11/2018 LUNG CANCER [C34.10] 04/13/2005 06/27/2016 MALIG NEOPLASM BRONCH/LUNG NOS [C34.90] 12/08/2006 DYSTHYMIC DISORDER [F34.1] TOBACCO USE DISORDER [F17.200] 08/21/2005 Stage 3 severe COPD by GOLD classification (HCC*09/28/2005 Asthma [J45.909] GENERAL OSTEOARTHROSIS [M15.9] Essential hypertension, benign [I10] GENERALIZED ANXIETY DIS [F41.1] ABNORMAL PAP SMEAR OF CERVIX NEC AND HPV [R89.6] ESOPHAGEAL REFLUX [K21.9] 03/22/2007 Back pain [M54.9] 10/21/2010 07/15/2021 Cholelithias (more content not included)... Normal [facility] Respiratory Cultureon 2023 RESPC #2 TESTING PERFORMED AT [facility]. ORIGINAL REPORT ON FILE IN LAB CONTAINS ADDITIONAL TEST SITE INFORMATION. Streptococcus agalactiae (B) Amount Growth 3+ Pseudomonas aeruginosa Amount Growth 1+ Streptococcus agalactiae (B): REACTION Ampicillin Islt MODE <=0.25 S Penicillin G Islt MODE <=0.06 S cefTRIAXone Islt MODE <=0.12 S Clindamycin Islt MODE >=1 R Clindamycin.induced Susc Islt NEG Linezolid Islt MODE <=2 S Vancomycin Islt MODE 0.5 S Pseudomonas aeruginosa: REACTION Aztreonam Islt KB 30 S Pseudomonas aeruginosa: REACTION Amikacin Islt MODE S Cefepime Islt MODE S cefTAZidime Islt MODE S Ciprofloxacin Islt MODE S Gentamicin Islt MODE S Imipenem Islt MODE S levoFLOXacin Islt MODE R Meropenem Islt MODE S Tobramycin Islt MODE S Normal [facility] Comment on above: Performed By: #### M 100.4500, M100.1999 ####[facility] [address] [place], [address] Discharge Instructionon 06-25 Discharge Instruction [facility] Medical Records Department [address] [place] [address] Instructions for Home/Discharge Instructions 07/22/23 1603 MR#: [id number] Acct: [id number] Name: DENIA GONZALEZ Rep #: [id number] : 1955 68 From: Jan Bolanos MD PCP: Dr. Yoseph Fall MD Status:ADM IN Discharge Instructions Diet Discharge Diet: Low fat / Low cholesterol Activity Discharge Activity: Return to Normal Activity Dressing / Incision Call your doctor if you observe: Fever of 101 or Higher, Shortness of breath, Dizziness, Fainting spells, Swelling in the ankles, Chest pain and Increased palpitations (irregular heartbeat) Follow Up Care Test Results: Test results from this visit will be discussed in further detail at your follow-up appointment, if applicable. Discharge Plan Admission Admit Date/Time: 07/20/23 04:25 Attending Provider: Jan Bolanos Primary Care Provider: Yoseph Fall Consulting Providers: José Cunningham Discharge Orders/Prescriptions Prescriptions: New levofloxacin 750 mg tablet 750 mg PO DAILY Qty: 5 0RF prednisone 10 mg tablet 10 mg PO DAILY Qty: 32 0RF Rx Instructions: Take 4 tablets daily for 3 days then 3 tablets daily for 3 days then 2 tablets daily for 3 days then 1 tablet daily for 3 days then half tablet daily for 4 days. Continued cyclobenzaprine 10 MG tablet 10 mg PO Q12H 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 omeprazole 20 MG capsule 20 mg PO DAILY Patient Comments: ACID REFLUX MEDICATION verapamil 240 MG tablet 360 mg PO DAILY Patient Comments: HEART MEDICATION montelukast 10 MG tablet 10 mg PO DAILY Patient Comments: ANTI-HISTAMINE albuterol sulfate [Ventolin HFA] 1 INHALER inhaler 1 - 2 puff inhalation Q4H PRN PRN (Reason: Bronchodialation) Patient Comments: COPD/SHORTNESS OF BREATH fluticasone propionate 1 SPRAY spray,suspension 1 spray intranasal DAILY Patient Comments: NASAL SPRAY TO HELP CONGESTION tiotropium bromide [Spiriva with HandiHaler] 1 PUFF inhaler 1 puff inhalation DAILY Patient Comments: INHALER FOR COPD sertraline 100 MG tablet 100 mg PO DAILY Patient Comments: mood enhancement Oxygen, Home [Home Oxygen] 2.5 lpm NASAL PRN PRN (Reason: Dyspnea) Patient Comments: oxygen fluticasone propion-salmeterol [Advair Diskus] 1 PUFF inhaler 1 puff inhalation BID Qty: 1 0RF Patient Comments: nasal congestion hydrocodone-acetamin ophen 1 EACH tablet 7.5 - 325 mg PO Q6H PRN PRN (Reason: Pain) Patient Comments: pain Ropinirole Hcl 0.25 MG tablet 0.25 mg PO QHS Patient Comments: restless legs prednisone 10 MG tablet 15 mg PO PRN PRN (Reason: FLARE UPS) Patient Comments: steroid for inflammation ipratropium-albutero l 3 ML solution for nebulization 3 ml inhalation Q4HWA.RT Qty: 30 0RF guaifenesin [Mucus Relief ER] 600 MG tablet 600 mg PO BID 0RF lorazepam 0.5 MG tablet 0.5 mg PO QHS Qty: 7 0RF Referrals / Follow Up: Yoseph Fall MD [Primary Care Provider] - 1 Week if not improving Disposition Disposition (needs filled in before D/C Order can be placed): Home, Self Care 07/22/23 1612 Jan Bolanos MD CC: Dr. José Cunningham DO; Dr. Yoseph Fall MD Signed Normal [facility] Absolute lymphocyte countOrd ered By: aJn Bolanos on 07-21-2023 Lymphocytes Auto (Unsp spec) [#/Vol] 0.61 10*3/uL 0.83-4.51 [facility] Automated lymphocyte count a s percentage of total leukocytesOrdered By: Jan Bolanos on 07-21-2023 Lymphocytes/100 WBC Auto (Unsp spec) 8.8 % 19-41 [facility] Basic Metabolic Profile (BMP )on 07-21-2023 BUN/CRE 27.8 RATIO High 10-20 [facility] Comment on above: Performed By: #### L 100.0100, L500.2500 ####[facility] [address] [place], [address] CA,Total 8.6 mg/dL Normal 8.5-10.1 [facility] Comment on above: Performed By: #### L 100.0100, L500.2500 ####[facility] [address] [place], [address] Chloride [Moles/Vol] 107 mmol/L Normal 98-107 [facility] Comment on above: Performed By: #### L 100.0100, L500.2500 ####[facility] [address] [place], [address] CO2 [Moles/Vol] 30.0 mmol/L Normal 21.0-32.0 [facility] Comment on above: Performed By: #### L 100.0100, L500.2500 ####[facility] [address] [place], [address] Creatinine [Mass/Vol] 0.47 mg/dL Low 0.55-1.02 [facility] Comment on above: Result Comment: The validity of the calculated GFR GFRAA in patients over 70 years has not been determined. Clinical correlation is essential. Performed By: #### L 100.0100, L500.2500 ####[facility] [address] [place], [address] ECRCL 64.83 ml/min Normal [facility] Comment on above: Performed By: #### L 100.0100, L500.2500 ####[facility] [address] [place], [address] EST GFR - AA 170 mL/min Normal >60 [facility] Comment on above: Result Comment: Afri can Mauritian GFR Calc Performed By: #### L 100.0100, L500.2500 ####[facility] [address] [place], [address] GAP 3 Low 5-15 [facility] Comment on above: Performed By: #### L 100.0100, L500.2500 ####[facility] [address] [place], [address] GFR/1.73 sq M.predicted among non-blacks MDRD (S/P/Bld) [Vol rate/Area] 141 mL/min/{1.73_m2} Normal >60 [facility] Comment on above: Result Comment: Non- GFR Calc Performed By: #### L 100.0100, L500.2500 ####[facility] [address] [place], [address] Glucose [Mass/Vol] 140 mg/dL High 74-106 [facility] Comment on above: Result Comment: Fast ing Glucose result greater than or equal to 126 mg/dL suggests DIABETES MELLITUS per A.D.A. criteria. Performed By: #### L 100.0100, L500.2500 ####[facility] [address] [place], [address] Potassium [Moles/Vol] 4.1 mmol/L Normal 3.5-5.1 [facility] Comment on above: Performed By: #### L 100.0100, L500.2500 ####[facility] [address] [place], [address] Sodium [Moles/Vol] 140 mmol/L Normal 136-145 [facility] Comment on above: Performed By: #### L 100.0100, L500.2500 ####[facility] [address] [place], [address] Urea nitrogen [Mass/Vol] 13 mg/dL Normal 7-18 [facility] Comment on above: Performed By: #### L 100.0100, L500.2500 ####[facility] [address] [place], [address] Basophil percentageOrdered B y: Jan Bolanos on 07-21-2023 Basophils/100 WBC (Bld) 0.0 % 0-1 [facility] Chloride [Moles/Vol] 107 mmol/L 98-107 [facility] Eosinophils/100 WBC (Bld) 0.0 % 0-5 [facility] Glucose [Mass/Vol] 140 mg/dL 74-106 [facility] Comment on above: Fasting Glucose resu lt greater than or equal to 126 mg/dL suggests DIABETES MELLITUS per A.D.A. criteria. Hemoglobin (Bld) [Mass/Vol] 12.0 g/dL 12.0-15.0 [facility] Monocytes/100 WBC (Bld) 2.7 % 0-10 [facility] Neutrophils (Bld) [#/Vol] 6.1 10*3/uL 2.0-7.7 [facility] Neutrophils/100 WBC (Bld) 88.1 % 47-70 [facility] Potassium [Moles/Vol] 4.1 mmol/L 3.5-5.1 [facility] Sodium [Moles/Vol] 140 mmol/L 136-145 [facility] WBC (Bld) [#/Vol] 6.9 10*3/uL 4.4-11.0 [facility] CBC W/Diff, Automatedon 06-25 Absolute Lymph 0.61 X10 3/uL Low 0.83-4.51 [facility] Comment on above: Performed By: #### L 100.0100, L500.2500 ####[facility] [address] [place], [address] Absolute Neut 6.1 X10 3/uL Normal 2.0-7.7 [facility] Comment on above: Performed By: #### L 100.0100, L500.2500 ####[facility] [address] [place], [address] Basophils/100 WBC (Bld) 0.0 % Normal 0-1 [facility] Comment on above: Performed By: #### L 100.0100, L500.2500 ####[facility] [address] [place], [address] Eosinophils/100 WBC (Bld) 0.0 % Normal 0-5 [facility] Comment on above: Performed By: #### L 100.0100, L500.2500 ####[facility] [address] [place], [address] Erythrocyte distribution width (RBC) [Ratio] 13.4 % Normal 11.6-14.6 [facility] Comment on above: Performed By: #### L 100.0100, L500.2500 ####[facility] [address] [place], [address] Hematocrit (Bld) [Volume fraction] 37.4 % Normal 37-47 [facility] Comment on above: Performed By: #### L 100.0100, L500.2500 ####[facility] [address] [place], [address] Hemoglobin (Bld) [Mass/Vol] 12.0 g/dL Normal 12.0-15.0 [facility] Comment on above: Performed By: #### L 100.0100, L500.2500 ####[facility] [address] [place], [address] IG% 0.400 Normal 0.0-0.9 [facility] Comment on above: Result Comment: IG% - Immature Granulocytes (promyelocytes, myelocytes and metamyelocytes) > 1% indicates that a LEFT SHIFT is Present. Performed By: #### L 100.0100, L500.2500 ####[facility] [address] [place], [address] Lymphocytes/100 WBC (Bld) 8.8 % Low 19-41 [facility] Comment on above: Performed By: #### L 100.0100, L500.2500 ####[facility] [address] [place], [address] MCH (RBC) [Entitic mass] 26.5 pg Low 27.0-32.0 [facility] Comment on above: Performed By: #### L 100.0100, L500.2500 ####[facility] [address] [place], [address] MCHC (RBC) [Mass/Vol] 32.1 g/dL Normal 32-36 [facility] Comment on above: Performed By: #### L 100.0100, L500.2500 ####[facility] [address] [place], [address] MCV (RBC) [Entitic vol] 82.7 fL Normal 81-99 [facility] Comment on above: Performed By: #### L 100.0100, L500.2500 ####[facility] [address] [place], [address] Monocytes/100 WBC (Bld) 2.7 % Normal 0-10 [facility] Comment on above: Performed By: #### L 100.0100, L500.2500 ####[facility] [address] [place], [address] Neutrophils/100 WBC (Bld) 88.1 % High 47-70 [facility] Comment on above: Performed By: #### L 100.0100, L500.2500 ####[facility] [address] [place], [address] Nucleated RBC (Bld) [#/Vol] 0 10*3/uL Normal 0-5 [facility] Comment on above: Performed By: #### L 100.0100, L500.2500 ####[facility] [address] [place], [address] Platelet mean volume (Bld) [Entitic vol] 9.9 fL Normal 6.2-12.0 [facility] Comment on above: Performed By: #### L 100.0100, L500.2500 ####[facility] [address] [place], [address] Platelets (Bld) [#/Vol] 210 10*3/uL Normal 150-450 [facility] Comment on above: Performed By: #### L 100.0100, L500.2500 ####[facility] [address] [place], [address] RBC (Bld) [#/Vol] 4.52 10*6/uL Normal 4.2-5.4 [facility] Comment on above: Performed By: #### L 100.0100, L500.2500 ####[facility] [address] [place], [address] RDW SD 40.3 fl Normal 35.1-43.9 [facility] Comment on above: Performed By: #### L 100.0100, L500.2500 ####[facility] [address] [place], [address] WBC (Bld) [#/Vol] 6.9 10*3/uL Normal 4.4-11.0 [facility] Comment on above: Performed By: #### L 100.0100, L500.2500 ####[facility] [address] [place], [address] Determination of erythrocyte mean corpuscular volume (MCV)Ordered By: Jan Bolanos on 07-21-2023 MCV (RBC) [Entitic vol] 82.7 fL 81-99 [facility] Erythrocyte distribution wid th ratioOrdered By: Jan Bolanos on 07-21-2023 Erythrocyte distribution width (RBC) [Ratio] 13.4 % 11.6-14.6 [facility] Erythrocyte distribution wid th standard deviationOrdered By: Jan Bolanos on 07-21-2023 Erythrocyte distribution width (RBC) [Entitic vol] 40.3 fL 35.1-43.9 [facility] Gram Stainon 07-21-2023 GS Acceptable Specimen? Yes (<25 Epithelial cells per/lpf) Gram Stain Rare White Blood Cells 2+ Gram positive diplococci Normal [facility] Comment on above: Performed By: #### M 100.2400, M100.2000 ####[facility] [address] [place], [address] Gram stain for investigation of transfusion reactionOrdered By: Jan Bolanos on 07-21-2023 Microscopic observation Gram stain Nom (Unsp spec) [facility] Hematocrit Auto (Bld) [Volum e fraction]Ordered By: Jan Bolanos on 07-21-2023 Hematocrit (Bld) [Volume fraction] 37.4 % 37-47 [facility] Immature granulocytes/100 WB C Auto (Bld)Ordered By: Jan Bolanos on 07-21-2023 Immature granulocytes/100 WBC (Bld) 0.400 % 0.0-0.9 [facility] Comment on above: IG% - Immature Granu locytes (promyelocytes, myelocytes and metamyelocytes) > 1% indicates that a LEFT SHIFT is Present. Laboratory - Chemistry and C hemistry - challengeOrdered By: Jan Bolanos on 07-21-2023 CO2 [Moles/Vol] 30.0 mmol/L 21.0-32.0 [facility] Urea nitrogen/Creatinine [Mass ratio] 27.8 mg/mg 10-20 [facility] - Hematology and Cell countsOrdered By: Jan Bolanos on 07-21-2023 MCH (RBC) [Entitic mass] 26.5 pg 27.0-32.0 [facility] MCHC (RBC) [Mass/Vol] 32.1 g/dL 32-36 [facility] Nucleated RBC/100 WBC (Bld) [Ratio] 0 % 0-5 [facility] Platelet mean volume (Bld) [Entitic vol] 9.9 fL 6.2-12.0 [facility] Platelets (Bld) [#/Vol] 210 10*3/uL 150-450 [facility] No Panel InformationOrdered By: Jan Bolanos on 07-21-2023 Estimated Creatinine Clearance Calc 64.83 ml/min [facility] Estimated GFR (MDRD) Amer 170 mL/min >60 [facility] Comment on above: GFR Calc Estimated GFR (MDRD) Non-Af Amer 141 mL/min >60 [facility] Comment on above: Non- GFR Calc RBC Auto (Bld) [#/Vol]Ordere d By: Jna Bolanos on 07-21-2023 RBC (Bld) [#/Vol] 4.52 10*6/uL 4.2-5.4 [facility] Serum or plasma calcium kadi urement (mass/volume)Ordered By: Jan Bolanos on 07-21-2023 Calcium [Mass/Vol] 8.6 mg/dL 8.5-10.1 [facility] Serum or plasma creatinine m easurement (mass/volume)Ordered By: Jan Bolanos on 07-21-2023 Creatinine [Mass/Vol] 0.47 mg/dL 0.55-1.02 [facility] Comment on above: The validity of the calculated GFR & GFRAA in patients over 70 years has not been determined. Clinical correlation is essential. Serum or plasma urea nitroge n measurement (mass/volume)Ordered By: Jan Bolanos on 07-21-2023 Urea nitrogen [Mass/Vol] 13 mg/dL 7-18 [facility] Thin prep Papanicolaou smear with manual screeningOrdered By: Jan Bolanos on 07-21-2023 Thin prep Papanicolaou smear with manual screening 3 5-15 [facility] 12 Lead EKGon 07-20-2023 12 Lead EKG [facility] [address] [place] [address] 12 Lead EKG 07/20/23 0304 MR#: [id number] Acct: [id number] Name: DENIA GONZALEZ Rep #: [id number] : 1955 68 From: Junito Madrid MD Attending Dr: Dr. Jan Bolanos MD Status : ADM IN Ordering Dr: Dallas Mena MD Date: 07/20/23 Location: [facility]3 Sex: F C Admitted: 07/20/23 Test Reason : DYSRHYTHMIA Blood Pressure : / mmHG Vent. Rate : 128 BPM Atrial Rate : 128 BPM P-R Int : 156 ms QRS Dur : 082 ms QT Int : 294 ms P-R-T Axes : 079 034 067 degrees QTc Int : 429 ms Sinus tachycardia Right atrial enlargement Borderline ECG Confirmed by Junito Madrid ([id number]), photographic editor CLARISSE RAMIREZ ([id number]) on 07/20/2023 1:47:04 PM Referred By: Confirmed By:Junito Madrid 07/20/23 1347 Date Junito Madrid MD CC: Dr. Dallas Mena MD; Dr. Yoseph Fall MD; Dr. Jan Bolanos MD Signed Normal [facility] Absolute lymphocyte countOrd ered By: Dallas Mena on 07-20-2023 Lymphocytes Auto (Unsp spec) [#/Vol] 2.11 10*3/uL 0.83-4.51 [facility] Automated blood erythrocyte count (number/volume)Ordered By: Dallas Mena on 07-20-2023 RBC (Bld) [#/Vol] 5.34 10*6/uL Normal 4.2-5.4 [facility] Comment on above: Performed By: #### L 500.2500, L100.0100 #### [facility] [address] [place], [address] Automated blood hematocrit ( percentage)Ordered By: Dallas Mena on 07-20-2023 Hematocrit (Bld) [Volume fraction] 44.2 % Normal 37-47 [facility] Comment on above: Performed By: #### L 500.2500, L100.0100 #### [facility] [address] [place], [address] Automated lymphocyte count a s percentage of total leukocytesOrdered By: Dallas Mena on 07-20-2023 Lymphocytes/100 WBC Auto (Unsp spec) 23.7 % 19-41 [facility] Basic Metabolic Profile (BMP )on 07-20-2023 BUN/CRE 18.7 RATIO Normal 10-20 [facility] Comment on above: Performed By: #### L 500.2500, L100.0100 #### [facility] [address] [place], [address] CA,Total 8.8 mg/dL Normal 8.5-10.1 [facility] Comment on above: Performed By: #### L 500.2500, L100.0100 #### [facility] [address] [place], [address] ECRCL 65.47 ml/min Normal [facility] Comment on above: Performed By: #### L 500.2500, L100.0100 #### [facility] [address] [place], [address] EST GFR - AA 108 mL/min Normal >60 [facility] Comment on above: Result Comment: Afri can Mauritian GFR Calc Performed By: #### L 500.2500, L100.0100 #### [facility] [address] [place], [address] GAP 5 Normal 5-15 [facility] Comment on above: Performed By: #### L 500.2500, L100.0100 #### [facility] [address] [place], [address] GFR/1.73 sq M.predicted among non-blacks MDRD (S/P/Bld) [Vol rate/Area] 89 mL/min/{1.73_m2} Normal >60 [facility] Comment on above: Result Comment: Non- GFR Calc Performed By: #### L 500.2500, L100.0100 #### [facility] [address] [place], [address] Basic Metabolic Profile (BMP )Ordered By: Dallas Mena on 07-20-2023 CO2 [Moles/Vol] 33.0 mmol/L High 21.0-32.0 [facility] Comment on above: Performed By: #### L 500.2500, L100.0100 #### [facility] [address] [place], [address] Basophil percentageOrdered B y: Dallas Mena on 07-20-2023 Potassium [Moles/Vol] 3.8 mmol/L Normal 3.5-5.1 [facility] Comment on above: Performed By: #### L 501.2300, L501.5200, L500.4050, L501.9520, L100.0100 #### [facility] [address] [place], [address] Performed By: #### L 500.2500, L100.0100 #### [facility] [address] [place], [address] Chloride [Moles/Vol] 101 mmol/L Normal 98-107 [facility] Comment on above: Performed By: #### L 500.2500, L100.0100 #### [facility] [address] [place], [address] Glucose [Mass/Vol] 129 mg/dL High 74-106 [facility] Comment on above: Fasting Glucose resu lt greater than or equal to 126 mg/dL suggests DIABETES MELLITUS per A.D.A. criteria. Result Comment: Fast ing Glucose result greater than or equal to 126 mg/dL suggests DIABETES MELLITUS per A.D.A. criteria. Performed By: #### L 500.2500, L100.0100 #### [facility] [address] [place], [address] Sodium [Moles/Vol] 139 mmol/L Normal 136-145 [facility] Comment on above: Performed By: #### L 500.2500, L100.0100 #### [facility] [address] [place], [address] Basophils/100 WBC (Bld) 0.3 % Normal 0-1 [facility] Comment on above: Performed By: #### L 500.2500, L100.0100 #### [facility] [address] [place], [address] Eosinophils/100 WBC (Bld) 0.6 % Normal 0-5 [facility] Comment on above: Performed By: #### L 500.2500, L100.0100 #### [facility] [address] [place], [address] Hemoglobin (Bld) [Mass/Vol] 14.1 g/dL Normal 12.0-15.0 [facility] Comment on above: Performed By: #### L 500.2500, L100.0100 #### [facility] [address] [place], [address] Monocytes/100 WBC (Bld) 7.6 % Normal 0-10 [facility] Comment on above: Performed By: #### L 500.2500, L100.0100 #### [facility] [address] [place], [address] Neutrophils/100 WBC (Bld) 67.5 % Normal 47-70 [facility] Comment on above: Performed By: #### L 500.2500, L100.0100 #### [facility] [address] [place], [address] WBC (Bld) [#/Vol] 8.9 10*3/uL Normal 4.4-11.0 [facility] Comment on above: Performed By: #### L 500.2500, L100.0100 #### [facility] [address] [place], [address] Neutrophils (Bld) [#/Vol] 6.0 10*3/uL 2.0-7.7 [facility] Basophil percentageOrdered B y: José Smith on 07-20-2023 Basophil percentage 2.4 mg/dL 2.5-4.9 [facility] Bilirubin [Mass/Vol] 0.40 mg/dL 0.20-1.00 [facility] Comment on above: For patients on eltr ombopag therapy, use of Dimension [place] TBIL is not recommended. Protein [Mass/Vol] 7.4 g/dL 6.4-8.2 [facility] CBC W/Diff, Automatedon 06-25 Absolute Lymph 0.31 X10 3/uL Low 0.83-4.51 [facility] Comment on above: Performed By: #### L 501.2300, L501.5200, L500.4050, L501.9520, L100.0100 #### [facility] [address] [place], [address] Absolute Neut 8.3 X10 3/uL High 2.0-7.7 [facility] Comment on above: Performed By: #### L 501.2300, L501.5200, L500.4050, L501.9520, L100.0100 #### [facility] [address] [place], [address] Basophils/100 WBC (Bld) 0.1 % Normal 0-1 [facility] Comment on above: Performed By: #### L 501.2300, L501.5200, L500.4050, L501.9520, L100.0100 #### [facility] [address] [place], [address] Eosinophils/100 WBC (Bld) 0.0 % Normal 0-5 [facility] Comment on above: Performed By: #### L 501.2300, L501.5200, L500.4050, L501.9520, L100.0100 #### [facility] [address] [place], [address] Erythrocyte distribution width (RBC) [Ratio] 13.5 % Normal 11.6-14.6 [facility] Comment on above: Performed By: #### L 501.2300, L501.5200, L500.4050, L501.9520, L100.0100 #### [facility] [address] [place], [address] Hematocrit (Bld) [Volume fraction] 41.4 % Normal 37-47 [facility] Comment on above: Performed By: #### L 501.2300, L501.5200, L500.4050, L501.9520, L100.0100 #### [facility] [address] [place], [address] Hemoglobin (Bld) [Mass/Vol] 13.3 g/dL Normal 12.0-15.0 [facility] Comment on above: Performed By: #### L 501.2300, L501.5200, L500.4050, L501.9520, L100.0100 #### [facility] [address] [place], [address] IG% 0.300 Normal 0.0-0.9 [facility] Comment on above: Result Comment: IG% - Immature Granulocytes (promyelocytes, myelocytes and metamyelocytes) > 1% indicates that a LEFT SHIFT is Present. Performed By: #### L 501.2300, L501.5200, L500.4050, L501.9520, L100.0100 #### [facility] [address] [place], [address] Lymphocytes/100 WBC (Bld) 3.5 % Low 19-41 [facility] Comment on above: Performed By: #### L 501.2300, L501.5200, L500.4050, L501.9520, L100.0100 #### [facility] [address] [place], [address] MCH (RBC) [Entitic mass] 26.7 pg Low 27.0-32.0 [facility] Comment on above: Performed By: #### L 501.2300, L501.5200, L500.4050, L501.9520, L100.0100 #### [facility] [address] [place], [address] MCHC (RBC) [Mass/Vol] 32.1 g/dL Normal 32-36 [facility] Comment on above: Performed By: #### L 501.2300, L501.5200, L500.4050, L501.9520, L100.0100 #### [facility] [address] [place], [address] MCV (RBC) [Entitic vol] 83.0 fL Normal 81-99 [facility] Comment on above: Performed By: #### L 501.2300, L501.5200, L500.4050, L501.9520, L100.0100 #### [facility] [address] [place], [address] Monocytes/100 WBC (Bld) 1.1 % Normal 0-10 [facility] Comment on above: Performed By: #### L 501.2300, L501.5200, L500.4050, L501.9520, L100.0100 #### [facility] [address] [place], [address] Neutrophils/100 WBC (Bld) 95.0 % High 47-70 [facility] Comment on above: Performed By: #### L 501.2300, L501.5200, L500.4050, L501.9520, L100.0100 #### [facility] [address] [place], [address] Nucleated RBC (Bld) [#/Vol] 0 10*3/uL Normal 0-5 [facility] Comment on above: Performed By: #### L 501.2300, L501.5200, L500.4050, L501.9520, L100.0100 #### [facility] [address] [place], [address] Platelet mean volume (Bld) [Entitic vol] 10.0 fL Normal 6.2-12.0 [facility] Comment on above: Performed By: #### L 501.2300, L501.5200, L500.4050, L501.9520, L100.0100 #### [facility] [address] [place], [address] Platelets (Bld) [#/Vol] 203 10*3/uL Normal 150-450 [facility] Comment on above: Performed By: #### L 501.2300, L501.5200, L500.4050, L501.9520, L100.0100 #### [facility] [address] [place], [address] RBC (Bld) [#/Vol] 4.99 10*6/uL Normal 4.2-5.4 [facility] Comment on above: Performed By: #### L 501.2300, L501.5200, L500.4050, L501.9520, L100.0100 #### [facility] [address] [place], [address] RDW SD 40.5 fl Normal 35.1-43.9 [facility] Comment on above: Performed By: #### L 501.2300, L501.5200, L500.4050, L501.9520, L100.0100 #### [facility] [address] [place], [address] WBC (Bld) [#/Vol] 8.7 10*3/uL Normal 4.4-11.0 [facility] Comment on above: Performed By: #### L 501.2300, L501.5200, L500.4050, L501.9520, L100.0100 #### [facility] [address] [place], [address] Absolute Lymph 2.11 X10 3/uL Normal 0.83-4.51 [facility] Comment on above: Performed By: #### L 500.2500, L100.0100 #### [facility] [address] [place], [address] Absolute Neut 6.0 X10 3/uL Normal 2.0-7.7 [facility] Comment on above: Performed By: #### L 500.2500, L100.0100 #### [facility] [address] [place], [address] IG% 0.300 Normal 0.0-0.9 [facility] Comment on above: Result Comment: IG% - Immature Granulocytes (promyelocytes, myelocytes and metamyelocytes) > 1% indicates that a LEFT SHIFT is Present. Performed By: #### L 500.2500, L100.0100 #### [facility] [address] [place], [address] Lymphocytes/100 WBC (Bld) 23.7 % Normal 19-41 [facility] Comment on above: Performed By: #### L 500.2500, L100.0100 #### [facility] [address] [place], [address] Nucleated RBC (Bld) [#/Vol] 0 10*3/uL Normal 0-5 [facility] Comment on above: Performed By: #### L 500.2500, L100.0100 #### [facility] [address] [place], [address] RDW SD 41.0 fl Normal 35.1-43.9 [facility] Comment on above: Performed By: #### L 500.2500, L100.0100 #### [facility] [address] [place], [address] CBC W/Diff, AutomatedOrdered By: Dallas Mena on 07-20-2023 MCH (RBC) [Entitic mass] 26.4 pg Low 27.0-32.0 [facility] Comment on above: Performed By: #### L 500.2500, L100.0100 #### [facility] [address] [place], [address] MCHC (RBC) [Mass/Vol] 31.9 g/dL Low 32-36 [facility] Comment on above: Performed By: #### L 500.2500, L100.0100 #### [facility] [address] [place], [address] Platelet mean volume (Bld) [Entitic vol] 9.9 fL Normal 6.2-12.0 [facility] Comment on above: Performed By: #### L 500.2500, L100.0100 #### [facility] [address] [place], [address] Platelets (Bld) [#/Vol] 233 10*3/uL Normal 150-450 [facility] Comment on above: Performed By: #### L 500.2500, L100.0100 #### [facility] [address] [place], [address] Chest 1 View (Portable)on Chest 1 View (Portable) [facility] Imaging Services [address] [place] [address] Chest 1 View (Portable) MR#: [id number] Acct: [id number] Name: DENIA GONZALEZ Rep #: [id number] : 1955 F 68 From: Demetrius Rodgers MD PCP: Dr. Yoseph Fall MD Status: ADM IN Study: Chest 1 View (Portable) Date of Exam: 07/20/23 Exam# [id number] Ordering Dr: Dallas Mena MD [id number] INDICATION: dyspnea EXAMINATION/TECHNIQU E: X-RAY - XR Chest 1 View COMPARISON: None. ____ FINDINGS: LINES/DEVICES: None. LUNGS: Hyperexpansion with coarsened interstitium. Prior right lobectomy. Small layering right effusion. No pneumothorax. MEDIASTINUM AND CARDIOVASCULAR STRUCTURES: Cardiac silhouette not enlarged. Aortic atherosclerosis. BONES AND SOFT TISSUES: Unremarkable. RAD/Chest 1 View (Portable) IMPRESSION: Chronic obstructive pulmonary disease. Small layering right effusion. Electronically Signed: Demetrius Rodgers MD at 4:48 EDT Reading Location ID and State: [facility] / [place] Tel , Service support , CC: Dr. Dallas Mena MD; Dr. Yoseph Fall MD [place]: Signed Normal [facility] Comprehensive Metabolic Prof ilon 07-20-2023 Albumin [Mass/Vol] 3.4 g/dL Normal 3.2-5.0 [facility] Comment on above: Performed By: #### L 501.2300, L501.5200, L500.4050, L501.9520, L100.0100 #### [facility] [address] [place], [address] Albumin/Globulin [Mass ratio] 0.8 {ratio} Low 0.9-2.4 [facility] Comment on above: Performed By: #### L 501.2300, L501.5200, L500.4050, L501.9520, L100.0100 #### [facility] [address] [place], [address] ALK P 72 U/L Normal 45-117 [facility] Comment on above: Performed By: #### L 501.2300, L501.5200, L500.4050, L501.9520, L100.0100 #### [facility] [address] [place], [address] ALT [Catalytic activity/Vol] 15 U/L Normal 13-56 [facility] Comment on above: Performed By: #### L 501.2300, L501.5200, L500.4050, L501.9520, L100.0100 #### [facility] [address] [place], [address] AST [Catalytic activity/Vol] 13 U/L Low 15-37 [facility] Comment on above: Performed By: #### L 501.2300, L501.5200, L500.4050, L501.9520, L100.0100 #### [facility] [address] [place], [address] Bilirubin [Mass/Vol] 0.40 mg/dL Normal 0.20-1.00 [facility] Comment on above: Result Comment: For patients on eltrombopag therapy, use of Dimension [place] TBIL is not recommended. Performed By: #### L 501.2300, L501.5200, L500.4050, L501.9520, L100.0100 #### [facility] [address] [place], [address] BUN/CRE 23.6 RATIO High 10-20 [facility] Comment on above: Performed By: #### L 501.2300, L501.5200, L500.4050, L501.9520, L100.0100 #### [facility] [address] [place], [address] CA,Total 8.8 mg/dL Normal 8.5-10.1 [facility] Comment on above: Performed By: #### L 501.2300, L501.5200, L500.4050, L501.9520, L100.0100 #### [facility] [address] [place], [address] Chloride [Moles/Vol] 103 mmol/L Normal 98-107 [facility] Comment on above: Performed By: #### L 501.2300, L501.5200, L500.4050, L501.9520, L100.0100 #### [facility] [address] [place], [address] CO2 [Moles/Vol] 30.0 mmol/L Normal 21.0-32.0 [facility] Comment on above: Performed By: #### L 501.2300, L501.5200, L500.4050, L501.9520, L100.0100 #### [facility] [address] [place], [address] Creatinine [Mass/Vol] 0.64 mg/dL Normal 0.55-1.02 [facility] Comment on above: Result Comment: The validity of the calculated GFR GFRAA in patients over 70 years has not been determined. Clinical correlation is essential. Performed By: #### L 501.2300, L501.5200, L500.4050, L501.9520, L100.0100 #### [facility] [address] [place], [address] ECRCL 64.88 ml/min Normal [facility] Comment on above: Performed By: #### L 501.2300, L501.5200, L500.4050, L501.9520, L100.0100 #### [facility] [address] [place], [address] EST GFR - AA 120 mL/min Normal >60 [facility] Comment on above: Result Comment: Afri can [place] GFR Calc Performed By: #### L 501.2300, L501.5200, L500.4050, L501.9520, L100.0100 #### [facility] [address] [place], [address] GAP 7 Normal 5-15 [facility] Comment on above: Performed By: #### L 501.2300, L501.5200, L500.4050, L501.9520, L100.0100 #### [facility] [address] [place], [address] GFR/1.73 sq M.predicted among non-blacks MDRD (S/P/Bld) [Vol rate/Area] 99 mL/min/{1.73_m2} Normal >60 [facility] Comment on above: Result Comment: Non- GFR Calc Performed By: #### L 501.2300, L501.5200, L500.4050, L501.9520, L100.0100 #### [facility] [address] [place], [address] Globulin (S) [Mass/Vol] 4.0 g/dL Normal 2.2-4.2 [facility] Comment on above: Performed By: #### L 501.2300, L501.5200, L500.4050, L501.9520, L100.0100 #### [facility] [address] [place], [address] Glucose [Mass/Vol] 125 mg/dL High 74-106 [facility] Comment on above: Result Comment: Fast ing Glucose result from 100 to 125 mg/dL suggests IMPAIRED HOMEOSTASIS per A.D.A. criteria. Performed By: #### L 501.2300, L501.5200, L500.4050, L501.9520, L100.0100 #### [facility] [address] [place], [address] Sodium [Moles/Vol] 140 mmol/L Normal 136-145 [facility] Comment on above: Performed By: #### L 501.2300, L501.5200, L500.4050, L501.9520, L100.0100 #### [facility] [address] [place], [address] T PROT 7.4 g/dL Normal 6.4-8.2 [facility] Comment on above: Performed By: #### L 501.2300, L501.5200, L500.4050, L501.9520, L100.0100 #### [facility] [address] [place], [address] Urea nitrogen [Mass/Vol] 15 mg/dL Normal 7-18 [facility] Comment on above: Performed By: #### L 501.2300, L501.5200, L500.4050, L501.9520, L100.0100 #### [facility] [address] [place], [address] Determination of erythrocyte mean corpuscular volume (MCV)Ordered By: Dallas Mena on 07-20-2023 MCV (RBC) [Entitic vol] 82.8 fL Normal 81-99 [facility] Comment on above: Performed By: #### L 500.2500, L100.0100 #### [facility] [address] [place], [address] Emergency Department Summary on 07-20-2023 Emergency Department Summary [facility] Medical Records Department [address] [place] [address] Emergency Department Summary 07/20/23 MR#: [id number] Acct: [id number] Name: DENIA GONZALEZ Rep #: [id number] : 1955 68 From: Dallas Mena MD PCP: Dr. Yoseph Fall MD Status:ADM IN Location: [place] [address]-1 HPI History of Present Illness Chief Complaint: Shortness of Breath Informant: patient Onset/Context/Timing Onset: Days Context: gradual Timing: Continuous Current Severity: Moderate Maximum Severity: Moderate Worsened by: Coughing Relieved by: Oxygen and Albuterol Associated Symptoms cough, fever and yellow sputum Chest Pain: Positive for None Narrative Narrative: 68-year-old female history of COPD she is on 2 and half liters oxygen at home all the time. She has nebulizer inhaler at home. She is on 15 mg of prednisone every other day. Recently developed URI symptoms beginning yesterday and today. Primary care physician cauterant and Zithromax Z-Dahlia which she started yesterday. Subjectively she has had a fever. Denies any vomiting or diarrhea. No leg pain or swelling. No chest pain. Denies any hemoptysis. Tonight breathing got worse and she called the squad to bring her in. PE Risk Factors: Negative for Cancer, OCP + Smoking + > 35, Prior DVT or PE, Recent immobilization, Recent surgery or Recent travel Prior similar symptoms: Yes Recent Illness/Hospitalizat ion: No PFSH PFSH Home Medications albuterol sulfate 90 mcg/actuation aerosol inhaler (Ventolin HFA) 1 - 2 puff inhalation Q4H PRN PRN Bronchodialation 04/18/13 [History Last Taken 09/23/14] cyclobenzaprine 10 mg tablet 10 mg PO TID PRN PRN Pain 04/18/13 [History Last Taken 09/23/14 10 MG] fluticasone propionate 50 mcg/actuation nasal spray,suspension 1 spray DAILY 04/18/13 [History Last Taken 09/23/14] montelukast 10 mg tablet 10 mg PO DAILY 04/18/13 [History Last Taken 09/23/14 10 MG] omeprazole 20 mg capsule,delayed release 20 mg PO DAILY 04/18/13 [History Last Taken 09/23/14 20 MG] tiotropium bromide 18 mcg capsule with inhalation device (Spiriva with HandiHaler) 1 puff inhalation DAILY 04/18/13 [History Last Taken 09/23/14] verapamil 240 mg tablet,extended release 360 mg PO DAILY 04/18/13 [History Last Taken 09/23/14 360 MG] alprazolam 0.5 mg tablet 0.5 mg PO TID PRN PRN Anxiety ##30 05/04/13 [Rx Last Taken 09/23/14] Oxygen, Home [Home Oxygen] 2.5 lpm PRN PRN Dyspnea 10/22/13 [History Last Taken 09/23/14] sertraline 100 mg tablet 100 mg PO DAILY 10/22/13 [History Last Taken 09/23/14] fluticasone 500 mcg-salmeterol 50 mcg/dose blistr powdr for inhalation (Advair Diskus) 1 puff inhalation BID ##1 10/26/13 [Rx Last Taken 09/23/14] Ropinirole Hcl 0.25 mg PO QHS restless legs 09/23/14 [History Last Taken Unknown] hydrocodone 7.5 mg-acetaminophen 325 mg tablet 7.5 - 325 mg PO Q6H PRN PRN Pain 09/23/14 [History Last Taken Unknown] prednisone 10 mg tablet 10 mg PO PRN PRN FLARE UPS 04/03/15 [History Last Taken Unknown] guaifenesin 600 mg tablet, extended release 12 hr (Mucus Relief ER) 600 mg PO BID 05/13/16 [Rx Last Taken Unknown] ipratropium 0.5 mg-albuterol 3 mg (2.5 mg base)/3 mL nebulization soln 3 ml inhalation Q4HWA.RT ##30 05/13/16 [Rx Last Taken Unknown] prednisone 20 mg tablet 20 mg PO DAILY@0800 ##30 05/13/16 [Rx Last Taken Unknown] lorazepam 0.5 mg tablet 0.5 mg PO QHS #7 tabs 05/05/20 [Rx Last Taken Unknown] Allergy/AdvReac Type Severity Reaction Status Date / Time No Known Allergies Allergy Verified 07/20/23 02:54 Social History Smoking Status: Former smoker ROS ROS ED ROS Narrative Cough. Shortness of breath. Wheezing. Review of Systems ROS Unobtainable: Denies due to encephalopathy Constitutional Constitutional ED: Reports fever(s); Denies chills Eyes Eyes: Denies blurry vision ENT ENT ED: Denies ear pain Cardiovascular Cardiovascular: Denies chest pain Respiratory/Chest Respiratory/Chest: Reports cough and dyspnea Gastrointestinal Gastrointestinal: Denies abdominal pain, constipation, diarrhea, melena, nausea or vomiting Genitourinary Genitourinary ED: Denies dysuria or hematuria Musculoskeletal Musculoskeletal: Denies arthralgias Integumentary Denies abscess Neurologic Neurologic: Denies headache(s) Psychiatric Psychiatric: Denies anxiety Endocrine Endocrinology: Denies cold intolerance Hematologic/Lymphati c Hematologic/Lymphati c: Denies easy bleeding, easy bruising or lymphadenopathy Allergic/Immunologic Allergic/Immunologic ED: Denies mouth swelling, tongue swelling or urticaria EXAM Physical Exam Narrative Exam Narrative: 68-year-old female vital signs are temperature nine 9.8. Pulse ox is 93% on 2 and half liters which is her baseline. H EENT exam unremarkable. Neck nontender. No JVD. Lungs prolonged expiratory pha (more content not included)... Normal [facility] Erythrocyte distribution wid th ratioOrdered By: Dallas Mena on 07-20-2023 Erythrocyte distribution width (RBC) [Ratio] 13.6 % Normal 11.6-14.6 [facility] Comment on above: Performed By: #### L 500.2500, L100.0100 #### [facility] [address] [place], [address] Erythrocyte distribution wid th standard deviationOrdered By: Dallas Mena on 07-20-2023 Erythrocyte distribution width (RBC) [Entitic vol] 41.0 fL 35.1-43.9 [facility] H AND P Exam - Hospitaliston 07-20-2023 H&P Exam - Hospitalist [facility] Medical Records Department [address] [place] [address] H P Exam - Hospitalist 07/20/23 0406 MR#: [id number] Acct: [id number] Name: DENIA GONZALEZ Rep #: [id number] : 1955 68 From: José Cunningham DO PCP: Dr. Yoseph Fall MD Status:ADM IN [id number] HPI - General General Date of Admission: 07/20/23 Date of Service: 07/20/23 Chief Complaint: SOB, Wheezing and Cough with Green Sputum. HPI Narrative DENIA GONZALEZ, is a 68 F with a past medical history of essential hypertension, overweight; with BMI of 27.2 this admission, history of ongoing tobacco abuse; with subsequent steroid-dependent COPD, chronic hypoxic respiratory failure; on 2.5L NC, history of non-small cell lung cancer; s/p Right lobectomy, RLS, depression with anxiety, GERD and OA who presents to [facility] ER complaining of shortness of breath, wheezing and cough with green sputum. Ms. Gonzalez reports her symptoms began approximately 2 days prior to admission with a gradual onset of dyspnea on exertion that progressed to shortness of breath at rest. She had noticed rapidly developing upper respirato ry infection symptoms and spite of her 50 mg of prednisone every other day, increased use of her neb ulizers and a Z-Dahlia started by her primary care physician yesterday. She admits to subjective fever s and worsening cough and wheezing that caused her to activate EMS. She denies associated chills, n ausea, vomiting, leg pain, leg swelling, chest pain or hemoptysis. She admits her symptoms are j carlos lar to her previous COPD exacerbations. In the ER she was diagnosed with acute exacerbation of COPD with clinical evidence of [id number]-cyuhguk hypoxic respiratory insufficiency likely due to recent v iral URI in the setting of ongoing tobacco abuse and she was then admitted to the [facility] for ongoing care for stay that is expected to be greater than 48 hours. [facility] Home Medications albuterol sulfate 90 mcg/actuation aerosol inhaler (Ventolin HFA) 1 - 2 puff inhalation Q4H PRN PRN Bronchodialation 04/18/13 [History Last Taken 09/23/14] cyclobenzaprine 10 mg tablet 10 mg PO Q12H pain 04/18/13 [History Last Taken 09/23/14 10 MG] fluticasone propionate 50 mcg/actuation nasal spray,suspension 1 spray intranasal DAILY nasal congestion 04/18/13 [History Last Taken 09/23/14] montelukast 10 mg tablet 10 mg PO DAILY allergies 04/18/13 [History Last Taken 09/23/14 10 MG] omeprazole 20 mg capsule,delayed release 20 mg PO DAILY heart burn 04/18/13 [History Last Taken 09/23/14 20 MG] tiotropium bromide 18 mcg capsule with inhalation device (Spiriva with HandiHaler) 1 puff inhalation DAILY wheezing 04/18/13 [History Last Taken 09/23/14] verapamil 240 mg tablet,extended release 360 mg PO DAILY heart 04/18/13 [History Last Taken 09/23/14 360 MG] Oxygen, Home [Home Oxygen] 2.5 lpm PRN PRN Dyspnea 10/22/13 [History Last Taken 09/23/14] sertraline 100 mg tablet 100 mg PO DAILY insomina 10/22/13 [History Last Taken 09/23/14] fluticasone 500 mcg-salmeterol 50 mcg/dose blistr powdr for inhalation (Advair Diskus) 1 puff inhalation BID shortness of breath ##1 10/26/13 [Rx Last Taken 09/23/14] Ropinirole Hcl 0.25 mg PO QHS restless legs 09/23/14 [History Last Taken Unknown] hydrocodone 7.5 mg-acetaminophen 325 mg tablet 7.5 - 325 mg PO Q6H PRN PRN Pain 09/23/14 [History Last Taken Unknown] prednisone 10 mg tablet 15 mg PO PRN PRN FLARE UPS 04/03/15 [History Last Taken Unknown] guaifenesin 600 mg tablet, extended release 12 hr (Mucus Relief ER) 600 mg PO BID congestion 05/13/16 [Rx Last Taken Unknown] ipratropium 0.5 mg-albuterol 3 mg (2.5 mg base)/3 mL nebulization soln 3 ml inhalation Q4HWA.RT wheezing ##30 05/13/16 [Rx Last Taken Unknown] lorazepam 0.5 mg tablet 0.5 mg PO QHS anxiety #7 tabs 05/05/20 [Rx Last Taken Unknown] Allergy/AdvReac Type Severity Reaction Status Date / Time No Known Allergies Allergy Verified 07/20/23 02:54 Social History Smoking Status: Former smoker ROS ROS Narrative Review of systems: General: Patient admits to subjective fever but denies chills. HENT: Denies headache, denies stuffy nose, denies sore throat, denies ear pain EYES: Denies changes in vision or discharge from eyes. Resp: Patient admits to dyspnea on exertion that progressed to shortness of breath at rest with wheezing and cough productive of sputum as per HPI. Cardiac: Denies chest pain or palpitations. GI: Denies abdominal pain, denies changes in bowel, denies nausea or vomiting. : Denies changes in urination Extremity: Denies swelling Musculoskeletal: Feels somewhat generally weak and unwell but denies arthralgias or myalgias. Neuro: Patient denies headache, paresthesias or focal neurologic weakness. Heme: Denies any bleeding or bruising Skin (more content not included)... Normal [facility] Immature granulocytes/100 WB C Auto (Bld)Ordered By: Dallas Mena on 07-20-2023 Immature granulocytes/100 WBC (Bld) 0.300 % 0.0-0.9 [facility] Comment on above: IG% - Immature Granu locytes (promyelocytes, myelocytes and metamyelocytes) > 1% indicates that a LEFT SHIFT is Present. Laboratory - Chemistry and C hemistry - challengeOrdered By: José Smith on 07-20-2023 Albumin/Globulin [Mass ratio] 0.8 {ratio} 0.9-2.4 [facility] ALP [Catalytic activity/Vol] 72 U/L 45-117 [facility] ALT [Catalytic activity/Vol] 15 U/L 13-56 [facility] Globulin (S) [Mass/Vol] 4.0 g/dL 2.2-4.2 [facility] Magnesium [Mass/Vol] 2.1 mg/dL 1.6-2.6 [facility] Laboratory - Chemistry and C hemistry - challengeOrdered By: Dallas Mena on 07-20-2023 Urea nitrogen/Creatinine [Mass ratio] 18.7 mg/mg 10-20 [facility] - Hematology and Cell countsOrdered By: Dallas Mena on 07-20-2023 Nucleated RBC/100 WBC (Bld) [Ratio] 0 % 0-5 [facility] - Microbiology an d Antimicrobial susceptibilityOrdered By: Dallas Mena on 07-20-2023 SARS-CoV-2 (COVID-19) RNA ASPEN+probe Ql (Unsp spec) [facility] M100.678on 07-20-2023 M100.678 SARS-CoV-2 (COVID 19) Negative INFLUENZA A Negative INFLUENZA B Negative RSV PCR Negative Normal [facility] Comment on above: Performed By: #### M 100.678 ####[facility] [address] [place], [address] Magnesiumon 07-20-2023 Magnesium [Mass/Vol] 2.1 mg/dL Normal 1.6-2.6 [facility] Comment on above: Performed By: #### L 501.2300, L501.5200, L500.4050, L501.9520, L100.0100 #### [facility] [address] [place], [address] No Panel InformationOrdered By: Dallas Mena on 07-20-2023 Estimated Creatinine Clearance Calc 65.47 ml/min [facility] Estimated GFR (MDRD) Amer 108 mL/min >60 [facility] Comment on above: GFR Calc Estimated GFR (MDRD) Non-Af Amer 89 mL/min >60 [facility] Comment on above: Non- GFR Calc Phosphoruson 07-20-2023 Phosphate [Mass/Vol] 2.4 mg/dL Low 2.5-4.9 [facility] Comment on above: Performed By: #### L 501.2300, L501.5200, L500.4050, L501.9520, L100.0100 #### [facility] [address] [place], [address] Serum or plasma calcium kadi urement (mass/volume)Ordered By: Dallas Mena on 07-20-2023 Calcium [Mass/Vol] 8.8 mg/dL 8.5-10.1 [facility] Serum or plasma creatinine m easurement (mass/volume)Ordered By: Dallas Mena on 07-20-2023 Creatinine [Mass/Vol] 0.70 mg/dL Normal 0.55-1.02 [facility] Comment on above: The validity of the calculated GFR & GFRAA in patients over 70 years has not been determined. Clinical correlation is essential. Result Comment: The validity of the calculated GFR GFRAA in patients over 70 years has not been determined. Clinical correlation is essential. Performed By: #### L 500.2500, L100.0100 #### [facility] [address] [place], [address] Serum or plasma thyroid stim ulating hormone (TSH) measurement (units/volume)Ordered By: José Smith on 07-20-2023 TSH Qn 0.35 uIU/mL 0.358-3.74 [facility] Serum or plasma urea nitroge n measurement (mass/volume)Ordered By: Dallas Mena on 07-20-2023 Urea nitrogen [Mass/Vol] 13 mg/dL Normal 7-18 [facility] Comment on above: Performed By: #### L 500.2500, L100.0100 #### [facility] [address] [place], [address] Thin prep Papanicolaou smear with manual screeningOrdered By: José Smith on 07-20-2023 Thin prep Papanicolaou smear with manual screening 3.4 g/dL 3.2-5.0 [facility] Thin prep Papanicolaou smear with manual screening 13 U/L 15-37 [facility] Thin prep Papanicolaou smear with manual screeningOrdered By: Dallas Mena on 07-20-2023 Thin prep Papanicolaou smear with manual screening 5 5-15 [facility] Thyroid Stim Hormone (TSH)on 07-20-2023 TSH 0.35 uIU/mL Low 0.358-3.74 [facility] Comment on above: Performed By: #### L 501.2300, L501.5200, L500.4050, L501.9520, L100.0100 #### [facility] [address] [place], [address] FECAL OCCULT BLOOD TESTon Lower GI hemoglobin IA Ql (Stl) Negative Negative [facility] OXIMETRY WITH AMBULATIONon 1 [facility] Vital Signs Date Time Vital Sign Value Performing Clinician Ines mays 04-07-2024 08:39-0500 Body mass index (BMI) [Ratio] 29.23 kg/m2 Yoseph Fall MD Work Phone: [facility] 04-07-2024 08:39-0500 Body temperature 98.1 [degF] Yoseph Fall MD Work Phone: [facility] 04-07-2024 08:39-0500 Body weight 74.84 kg Yoseph Fall MD Work Phone: [facility] 04-07-2024 08:39-0500 Diastolic blood pressure 76 mm[Hg] Yoseph Fall MD Work Phone: [facility] Comment on above: home bp 04-07-2024 08:39-0500 Heart rate 86 /min Yoseph Fall MD Work Phone: [facility] 04-07-2024 08:39-0500 SaO2% (BldA) [Mass fraction] 93 % Yoseph Fall MD Work Phone: [facility] 04-07-2024 08:39-0500 Systolic blood pressure 141 mm[Hg] Yoseph Fall MD Work Phone: [facility] Comment on above: home bp 07-22-2023 17:49-0400 Heart rate 93 /min Dr. Yoseph Fall Work Phone: [facility] 07-22-2023 17:49-0400 Respiratory rate 18 /min Dr. Yoseph Fall Work Phone: [facility] 07-22-2023 16:37-0400 Body temperature 98.7 [degF] Dr. Yoseph Fall Work Phone: [facility] 07-22-2023 16:37-0400 Diastolic blood pressure 68 mm[Hg] Dr. Yoseph Fall Work Phone: [facility] 07-22-2023 16:37-0400 SaO2% (BldA) [Mass fraction] 96 % Dr. Yoseph Fall Work Phone: [facility] 07-22-2023 16:37-0400 Systolic blood pressure 146 mm[Hg] Dr. Yoseph Fall Work Phone: [facility] 07-22-2023 11:00-0400 Inhaled oxygen flow rate 2.5 L/min Dr. Yoseph Fall Work Phone: [facility] 07-22-2023 06:00-0400 Body mass index (BMI) [Ratio] 26.5 kg/m2 Dr. Yoseph Fall Work Phone: [facility] 07-22-2023 06:00-0400 Body weight 70.[address] Yoseph Fall Work Phone: [facility] 07-20-2023 05:02-0400 Body height 162.56 cm [facility] 07-20-2023 05:02-0400 Body mass index (BMI) [Ratio] 26.6 kg/m2 [facility] 07-20-2023 05:02-0400 Body weight 70.6 kg [facility] 07-20-2023 05:00-0400 Body temperature 98.9 [degF] [facility] 07-20-2023 05:00-0400 Diastolic blood pressure 72 mm[Hg] [facility] 07-20-2023 05:00-0400 Heart rate 124 /min [facility] 07-20-2023 05:00-0400 Inhaled oxygen flow rate 3.5 L/min [facility] 07-20-2023 05:00-0400 Respiratory rate 24 /min [facility] 07-20-2023 05:00-0400 SaO2% (BldA) [Mass fraction] 93 % [facility] 07-20-2023 05:00-0400 Systolic blood pressure 124 mm[Hg] [facility] 02-19-2023 14:12-0400 Body weight 73.48 kg Yoseph Fall MD Work Phone: [facility] 02-19-2023 14:12-0400 Diastolic blood pressure 78 mm[Hg] Yoseph Fall MD Work Phone: [facility] 02-19-2023 14:12-0400 Heart rate 100 /min Yoseph Fall MD Work Phone: [facility] 02-19-2023 14:12-0400 Respiratory rate 20 /min Yoseph Fall MD Work Phone: [facility] 02-19-2023 14:12-0400 SaO2% (BldA) [Mass fraction] 96 % Yoseph Fall MD Work Phone: [facility] 02-19-2023 14:12-0400 Systolic blood pressure 130 mm[Hg] Yoseph Fall MD Work Phone: [facility] 05-01-2022 14:41-0500 Body weight 78.47 kg Yoseph Fall MD Work Phone: [facility] 05-01-2022 14:41-0500 Diastolic blood pressure 81 mm[Hg] Yoseph Fall MD Work Phone: [facility] 05-01-2022 14:41-0500 Heart rate 105 /min Yoseph Fall MD Work Phone: [facility] 05-01-2022 14:41-0500 Systolic blood pressure 132 mm[Hg] Yoseph Fall MD Work Phone: [facility] 02-20-2022 13:22-0400 Body weight 77.56 kg Respiratory Wstr Work Phone: [facility] 02-20-2022 13:22-0400 Heart rate 108 /min Respiratory Wstr Work Phone: [facility] 02-20-2022 13:22-0400 Respiratory rate 16 /min Respiratory Wstr Work Phone: [facility] 02-20-2022 13:22-0400 SaO2% (BldA) [Mass fraction] 93 % Respiratory Wstr Work Phone: [facility] Encounters Encounter Date Encounter Type Care Provider Facility Start: 08-29-2024 End: 08-29-2024 Refill Yoseph Fall MD Work Phone: [address] [place] [address] Comment on above: Refill Request Start: 08-15-2024 End: 08-15-2024 Refill Yoseph Fall MD Work Phone: [facility] Comment on above: Refill Request Start: 07-24-2024 End: 07-24-2024 Telephone encounter Yoseph Fall MD Work Phone: [facility] Comment on above: Patient Update; Medi cation Request Start: 07-12-2024 End: 07-12-2024 Telephone encounter Yoseph Fall MD Work Phone: [facility] [place] Comment on above: Chart Notes Start: 07-06-2024 End: 07-06-2024 [facility] Yoseph Fall MD Work Phone: [facility] Comment on above: Chronic obstructive pulmonary disease, unspecified COPD type (HCC) (Primary Dx); Chronic low back pain with sciatica, sciatica laterality unspecified, unspecified back pain laterality; Essential hypertension, benign; Generalized anxiety disorder; Depression, unspecified depression type; Gastroesophageal reflux disease without esophagitis; Thrush, oral; Tobacco use disorder; Screening for colon cancer Start: 06-22-2024 End: 06-22-2024 Refill Yoseph Fall MD Work Phone: [facility] [place] Comment on above: Refill Request Start: 06-19-2024 End: 06-19-2024 Refill Yoseph Fall MD Work Phone: [facility] Comment on above: Refill Request Start: 06-12-2024 End: 06-12-2024 Telephone encounter Yoseph Fall MD Work Phone: [facility] [place] Comment on above: Forms ([employer]) Start: 06-02-2024 End: 06-07-2024 Telephone encounter Yoseph Fall MD Work Phone: [facility] [place] Comment on above: Insurance Authorizat ion Start: 06-01-2024 End: 06-01-2024 Refill Yoseph Fall MD Work Phone: [facility] Comment on above: Refill Request; Medi cation Problem (Singulair) Start: 05-16-2024 End: 06-16-2024 Refill Yoseph Fall MD Work Phone: [facility] [place] Comment on above: Refill Request Start: 04-10-2024 End: 04-10-2024 Refill Yoseph Fall MD Work Phone: [facility] [place] Comment on above: Refill Request Start: 04-07-2024 End: 04-07-2024 [facility] Yoseph Fall MD Work Phone: [facility] [place] Comment on above: Chronic low back geoffery n with sciatica, sciatica laterality unspecified, unspecified back pain laterality (Primary Dx); Essential hypertension, benign; Generalized anxiety disorder; Depression, unspecified depression type; Gastroesophageal reflux disease without esophagitis Start: 03-21-2024 End: 03-22-2024 Telephone encounter Yoseph Fall MD Work Phone: [facility] Comment on above: Patient Question Start: 03-20-2024 End: 03-20-2024 Refill oYseph Fall MD Work Phone: [facility] Comment on above: Refill Request Start: 03-03-2024 End: 03-03-2024 Refill Yoseph Fall MD Work Phone: [facility] Comment on above: Refill Request Start: 02-14-2024 End: 02-14-2024 Refill Yoseph Fall MD Work Phone: [facility] Comment on above: Refill Request Start: 02-03-2024 End: 02-04-2024 Telephone encounter Yoseph Fall MD Work Phone: [facility] Comment on above: Patient Question Start: 01-18-2024 End: 01-18-2024 Refill Yoseph Fall MD Work Phone: [facility] Comment on above: Refill Request Start: 12-24-2023 End: 12-24-2023 Refill Yoseph Fall MD Work Phone: [facility] Comment on above: Refill Request Start: 11-29-2023 End: 11-29-2023 [facility] Yoseph Fall MD Work Phone: [facility] Comment on above: Stage 3 severe COPD by GOLD classification (HCC) (Primary Dx); Generalized osteoarthrosis, involving multiple sites; Chronic low back pain with sciatica, sciatica laterality unspecified, unspecified back pain laterality; Essential hypertension, benign; Tobacco use disorder; Dysthymic disorder Start: 11-16-2023 Refill Yoseph emmanuel MD Work Phone: [facility] Comment on above: Refill Request Start: 11-08-2023 Telephone encounter Yoseph lei MD Work Phone: [facility] [place] Comment on above: Insurance Authorizat ion Start: 11-05-2023 Refill Yoseph emmanuel MD Work Phone: [facility] Comment on above: Refill Request Start: 10-22-2023 Telephone encounter Yoseph lei MD Work Phone: [address] [place] [address] Comment on above: Medication Request ( Requesting antibiotic) Start: 10-18-2023 Refill Yoseph emmanuel MD Work Phone: [facility] Comment on above: Refill Request Start: 10-18-2023 End: 10-18-2023 Emergency department patient visit [facility] Facility:[facility] Start: 10-01-2023 Telephone encounter Yoseph lei MD Work Phone: [facility] Comment on above: Medication Problem Start: 09-22-2023 Refill Yoseph emmanuel MD Work Phone: [facility] Comment on above: Refill Request Start: 09-15-2023 Refill Yoseph emmanuel MD Work Phone: [facility] Comment on above: Refill Request Start: 08-23-2023 End: 08-23-2023 [facility] Yoseph Fall MD Work Phone: [facility] Comment on above: Stage 3 severe COPD by GOLD classification (HCC) (Primary Dx); Essential hypertension, benign; Cigarette smoker; Generalized anxiety disorder; Chronic low back pain with sciatica, sciatica laterality unspecified, unspecified back pain laterality Start: 07-27-2023 Refill Yoseph emmanuel MD Work Phone: [facility] Comment on above: Refill Request Start: 07-26-2023 End: 07-26-2023 Patient Outreach Yoseph Fall MD Work Phone: [facility] Comment on above: Transition Of Care Obstructive chronic bronchitis with exacerbation (HCC) (Primary Dx); Stage 3 severe COPD by GOLD classification (HCC); Cigarette smoker; Chronic respiratory failure with hypoxia (HCC) Start: 07-22-2023 Non-patient / Non-visit Dr. Jos Fall Work Phone: [facility] Work Phone: Start: 07-21-2023 Non-patient / Non-visit Dr. Jos Fall Work Phone: [facility] Work Phone: Start: 07-20-2023 ambulatory Yoseph Wardalec Facilit y:[facility] Start: 07-20-2023 End: 07-22-2023 Evaluation and management of inpatient [facility] Work Phone: Start: 07-19-2023 Telephone encounter Yoseph lei MD Work Phone: [facility] Comment on above: Medication Request; Cough Start: 06-28-2023 Refill Yoseph emmanuel MD Work Phone: [facility] Comment on above: Med Change Request Start: 06-17-2023 Telephone encounter Yoseph lei MD Work Phone: [facility] Comment on above: Forms ([employer] re: incontinence supplies) Start: 06-16-2023 ambulatory Yoseph emmanuel MD Work Phone: [facility] [employer] Start: 06-15-2023 Telephone encounter Yoseph lei MD Work Phone: [facility] Comment on above: Mouth/Lip Problem Start: 06-14-2023 Telephone encounter Yoseph lei MD Work Phone: [facility] [place] Comment on above: Insurance Authorizat ion Start: 06-11-2023 Refill Yoseph emmanuel MD Work Phone: [facility] Comment on above: Refill Request Start: 03-30-2023 Telephone encounter Yoseph lei MD Work Phone: [facility] Start: 03-17-2023 Refill Yoseph emmanuel MD Work Phone: [facility] Comment on above: Refill Request Start: 02-19-2023 End: 02-19-2023 Patient encounter procedure Yoseph Fall MD Work Phone: [facility] Comment on above: Chronic low back geoffrey n with sciatica, sciatica laterality unspecified, unspecified back pain laterality (Primary Dx); Generalized osteoarthrosis, involving multiple sites; Generalized anxiety disorder; Depression, unspecified depression type; Essential hypertension, benign; Elevated glucose; Stage 3 severe COPD by GOLD classification ([facility]); Gastroesophageal reflux disease, unspecified whether esophagitis present; Chronic obstructive pulmonary disease, unspecified COPD type ([facility]); Uncomplicated asthma, unspecified asthma severity, unspecified whether persistent; Tobacco use disorder; Need for influenza vaccination; Encounter for medication monitoring Start: 01-15-2023 Refill Yoseph emmanuel MD Work Phone: [facility] Comment on above: Refill Request Start: 12-29-2022 Refill Yoseph emmanuel MD Work Phone: [facility] Comment on above: Refill Request Start: 12-10-2022 Telephone encounter Yoseph lei MD Work Phone: [facility] Comment on above: Orders Start: 11-06-2022 Refill Nelson BOWMAN RN.[facility] Work Phone: [facility] Comment on above: Refill Request Start: 11-05-2022 Refill Nelson BOWMAN RN.[facility] Work Phone: [facility] Comment on above: Refill Request Start: 08-21-2022 Telephone encounter Yoseph lei MD Work Phone: [facility] Comment on above: Patient Request Start: 07-02-2022 Telephone encounter Yoseph lei MD Work Phone: [facility] Comment on above: Forms (Incontinence supply form) Start: 06-29-2022 Refill Yoseph emmanuel MD Work Phone: [facility] Comment on above: Refill Request Start: 06-08-2022 Refill Yoseph emmanuel MD Work Phone: [facility] [place] Comment on above: Refill Request Start: 05-15-2022 Refill Yoseph emmanuel MD Work Phone: [facility] [place] Comment on above: Refill Request Start: 05-05-2022 Refill Yoseph emmanuel MD Work Phone: [facility] [place] Comment on above: Refill Request Start: 05-01-2022 End: 05-01-2022 [facility] Yoseph Fall MD Work Phone: [facility] [place] Comment on above: Stage 3 severe COPD by GOLD classification (HCC) (Primary Dx); Chronic low back pain with sciatica, sciatica laterality unspecified, unspecified back pain laterality; Chronic respiratory failure with hypoxia (HCC); Essential hypertension, benign; Generalized anxiety disorder; Tobacco use disorder Start: 04-21-2022 Refill Yoseph emmanuel MD Work Phone: Family [facility] [place] Comment on above: Refill Request Start: 02-27-2022 Telephone encounter Mercedez Zarate PA-C Work Phone: Pulmonary Medicine Comment on above: Orders Start: 02-20-2022 End: 02-20-2022 ambulatory Respiratory Therapist [facility] Work Phone: Pulmonary Medicine Comment on above: Spirometry Start: 02-20-2022 End: 02-20-2022 Patient encounter procedure Respiratory Therapist [facility] Work Phone: [place] [facility] Start: 01-20-2022 Refill Yoseph emmanuel MD Work Phone: [facility] [place] Comment on above: Refill Request Start: 01-13-2022 Orders Only Michelle Guzmán MD Work Phone: Pulmonary Medicine Comment on above: Chronic obstructive pulmonary disease, unspecified COPD type (HCC) (Primary Dx) Start: 01-08-2022 Telephone encounter Michelle Guzmán MD Work Phone: Pulmonary Medicine Comment on above: Orders Start: 12-18-2021 Refill Yoseph emmanuel MD Work Phone: [facility] Comment on above: Refill Request Start: 11-17-2021 Refill Yoseph emmanuel MD Work Phone: [facility] Comment on above: Refill Request Start: 10-17-2021 End: 10-17-2021 Distance Health Yoseph Fall MD Work Phone: [facility] [place] Comment on above: Chronic obstructive pulmonary disease, unspecified COPD type (HCC) (Primary Dx); Chronic low back pain with sciatica, sciatica laterality unspecified, unspecified back pain laterality; Essential hypertension, benign; Uncomplicated asthma, unspecified asthma severity, unspecified whether persistent; Generalized anxiety disorder Start: 09-30-2021 Refill Yoseph emmanuel MD Work Phone: [facility] Comment on above: Refill Request Start: 09-15-2021 Refill Yoseph emmanuel MD Work Phone: [facility] Comment on above: Refill Request Start: 08-27-2021 Refill Yoseph emmanuel MD Work Phone: [facility] Comment on above: Refill Request Start: 08-18-2021 Refill Yoseph emmanuel MD Work Phone: [facility] Comment on above: Refill Request Start: 08-01-2021 Orders Only Yoseph emmanuel MD Work Phone: [facility] Comment on above: Essential hypertensi on, benign (Primary Dx); Elevated glucose Procedures Date Procedure Procedure Detail Performing Clinician Start: 07-21-2023 Investigation of transfusion reaction Dr. Yoseph Fall Work Phone: Start: 07-20-2023 SARS-CoV-2, Influenza & RSV (PCR) Start: 07-20-2023 Plain chest X-ray Start: 02-19-2023 INFLUENZA VACCINE, PRSV FREE, AGE 65+ YR, HIGH DOSE, QUADRIVALENT (FLUZONE HIGH-DOSE) Yoseph Fall MD Work Phone: Start: 02-19-2023 Lipid 1996 panel - Serum or Plasma Yoseph Fall MD Work Phone: Start: 01-24-2023 Blood occult fecal hgb deter ia qual feces 1-3 Yoseph Fall MD Work Phone: Start: 02-20-2022 Noninvasive ear/pulse oximetry multiple deter Michelle Guzmán MD Work Phone: Start: 02-08-2019 Lipid 1996 panel - Serum or Plasma Yoseph Fall MD Work Phone: Start: 08-06-2016 History of cholecystectomy S/P laparoscopic cholecystectomy Yoseph Fall MD Work Phone: Start: 10-17-2015 Mammography Yoseph Fall MD Work Phone: Plan of Treatment Date Care Activity Detail Author Start: 02-20-2028 Lipid 1996 panel - S avelino or Plasma Lipid Screening [facility] Start: 02-20-2028 Lipid panel Lipid Screening [facility] Start: 02-19-2026 Diabetes Screening Diabetes Screenin g [facility] Start: 07-06-2025 Annual PCP Team Prepared [employer] Service Team Member yakov Disease Visit Annual PCP Team Chronic Disease Visit [facility] Start: 07-06-2025 Screening for malign ant neoplasm of breast Mammogram Screening [facility] Comment on above: Postponed from 10/16 (Declined at this time) Start: 04-07-2025 Annual PCP Team [employer] Service Team Member yakov Disease Visit Annual PCP Team Chronic Disease Visit [facility] Start: 12-25-2024 Influenza vaccination Influenz a Vaccine (Season Ended) [facility] Start: 11-28-2024 Annual PCP Team [employer] Service Team Member yakov Disease Visit Annual PCP Team Chronic Disease Visit [facility] Start: 08-22-2024 Annual PCP Team [employer] Service Team Member yakov Disease Visit Annual PCP Team Chronic Disease Visit [facility] Start: 07-25-2024 Annual PCP Team [employer] Service Team Member yakov Disease Visit Annual PCP Team Chronic Disease Visit [facility] Start: 07-12-2024 DIABETES SCREEN DIABETES SCREEN [facility] Start: 07-12-2024 Diabetes Screening Diabetes Screenin g [facility] Start: 07-06-2024 End: 07-06-2024 ambulatory 07/06/2024 2:00 PM EDT [facility] [address] [place] [id number] Yoseph Fall MD [address] [facility] [place] [id number] 3 mo f/u - Phone visit Family [facility] Comment on above: 3 mo f/u - Phone vis it Start: 05-24-2024 Annual PCP Team [employer] Service Team Member yakov Disease Visit Annual PCP Team Chronic Disease Visit [facility] Start: 04-26-2024 Advance Directive Discussion Advance Directive Discussion [facility] Start: 04-07-2024 End: 04-07-2024 Telephone follow-up 04/07/2024 8:40 AM EST [facility] [address] [place] [id number] Yoseph Fall MD [address] [facility] [place] [phone] phone call 4 month follow up [facility] Comment on above: phone call 4 month f ollow up Start: 02-20-2024 Annual PCP Team [employer] Service Team Member yakov Disease Visit Annual PCP Team Chronic Disease Visit [facility] Start: 02-09-2024 Lipid 1996 panel - S avelino or Plasma Lipid Screening [facility] Start: 02-09-2024 LIPID SCREEN LIPID SCREEN [facility] Start: 01-25-2024 Colorectal Cancer Screening Colorectal Cancer Screening [facility] Start: 01-25-2024 Fecal Occult Blood Fecal Occult Bloo d [facility] Start: 01-25-2024 Screening for malign ant neoplasm of colon [facility] Start: 12-26-2023 Covid-19 Vaccine ( season) Covid-19 Vaccine ( season) [facility] Start: 12-26-2023 Influenza vaccination Influenza Vacc ine (#1) [facility] Start: 11-29-2023 End: 11-29-2023 Telephone follow-up 11/29/2023 5:40 PM EDT [facility] [place] [address] [place] [id number] Yoseph Fall MD [address] [place], [place] [id number] phone call-3 month follow up [facility] [place] Comment on above: phone call-3 month f ollow up Start: 11-23-2023 End: 11-23-2023 Telephone follow-up 11/23/2023 3:00 PM EDT [facility] [place] [address] [place] [place] [address] Yoseph Fall MD [address] [place] [address] phone call-3 month follow up Family [facility] Comment on above: phone call-3 month f ollow up Start: 11-14-2023 ANNUAL PCP TEAM ROLLED [employer] CROSSCUTTER YAKOV DISEASE VISIT ANNUAL PCP TEAM CHRONIC DISEASE VISIT [facility] Start: 10-25-2023 Urine microalbumin profile [facility] Start: 08-08-2023 ANNUAL PCP TEAM [employer] CROSSCUTTER YAKOV DISEASE VISIT ANNUAL PCP TEAM CHRONIC DISEASE VISIT [facility] Start: 07-22-2023 Patient discharge [facility] Start: 07-21-2023 Respiratory microbia l culture Respiratory Culture [facility] Start: 07-20-2023 Thyroid stimulating hormone measurement [facility] Start: 07-20-2023 [facility] Start: 07-20-2023 Following clinical p athway protocol [facility] Start: 07-20-2023 Assessment of risk o f venous thromboembolism [facility] Start: 07-20-2023 Contact precautions [facility] Start: 07-20-2023 Incentive spirometry [facility] Start: 07-20-2023 Insertion of cathete r into peripheral vein [facility] Start: 07-20-2023 Measuring intake and output [facility] Start: 07-20-2023 Oxygen therapy [facility] Start: 07-20-2023 Providing care accor ding to standard [facility] Start: 07-20-2023 Provision of activit y privileges [facility] Start: 07-20-2023 Referral to service [facility] Start: 07-20-2023 Respiratory secretio n precautions [facility] Start: 07-20-2023 Respiratory therapy [facility] Start: 07-20-2023 Tobacco use cessatio n education [facility] Start: 07-20-2023 [facility] Start: 07-20-2023 Verification routine [facility] Start: 07-20-2023 Admission procedure [facility] Start: 07-20-2023 Patient referral to dietitian [facility] Start: 05-01-2023 ANNUAL PCP TEAM [employer] YAKOV DISEASE VISIT ANNUAL PCP TEAM CHRONIC DISEASE VISIT [facility] Start: 04-26-2023 Advance Directive Discussion Advance Directive Discussion [facility] Start: 02-19-2023 End: 05-21-2023 CBC W Auto Differential panel - Blood [facility] Work Phone: Comment on above: Expected: 02/19/2023 , Expires: 05/21/2023 Start: 02-19-2023 End: 05-21-2023 Comprehensive metabolic 2000 panel - Serum or Plasma [facility] Work Phone: Comment on above: Expected: 02/19/2023 (Approximate), Expires: 05/21/2023 Start: 02-19-2023 End: 05-21-2023 Hemoglobin A1c in Blood [facility] Work Phone: Comment on above: Expected: 02/19/2023 , Expires: 05/21/2023 Start: 02-19-2023 End: 05-21-2023 LIPID PANEL, NONFASTING [facility] Work Phone: Comment on above: Expected: 02/19/2023 , Expires: 05/21/2023 Start: 02-19-2023 End: 05-21-2023 PAIN PANEL, UR QUANT [facility] Work Phone: Comment on above: Expected: 02/19/2023 , Expires: 05/21/2023 Start: 02-19-2023 End: 05-21-2023 TOX SCREEN ROUT UR [facility] Work Phone: Comment on above: Expected: 02/19/2023 , Expires: 05/21/2023 Start: 01-23-2023 ANNUAL PCP TEAM [employer] YAKOV DISEASE VISIT ANNUAL PCP TEAM CHRONIC DISEASE VISIT [facility] Start: 12-25-2022 Covid-19 Vaccine ( season) Covid-19 Vaccine () [facility] Start: 12-25-2022 Influenza vaccination C [facility] Start: 10-17-2022 ANNUAL PCP TEAM [employer]TER YAKOV DISEASE VISIT ANNUAL PCP TEAM CHRONIC DISEASE VISIT [facility] Start: 08-21-2022 COVID-19 VACCINE (5 - Moderna series) COVID-19 VACCINE (5 - Moderna series) [facility] Start: 07-17-2022 ANNUAL PCP TEAM [employer] CROSSCUTTER YKAOV DISEASE VISIT ANNUAL PCP TEAM CHRONIC DISEASE VISIT [facility] Start: 07-17-2022 BP CONTROLLED (<130/80) BP CONTROLLE D (<130/80) [facility] Start: 04-26-2022 ADVANCE DIRECTIVE DISCUSSION ADVANCE DIRECTIVE DISCUSSION [facility] Start: 12-25-2021 Influenza vaccination C [facility] Start: 12-12-2021 COVID-19 VACCINE (4 - Booster for Moderna series) COVID-19 VACCINE (4 - Booster for Moderna series) [facility] Start: 10-06-2021 COVID-19 VACCINE (3 - Booster for Moderna series) COVID-19 VACCINE (3 - Booster for Moderna series) [facility] Start: 08-01-2021 End: 10-01-2021 LIPID PANEL BASIC LIPID PANEL BASIC Lab Routine Essential hypertension, benign Elevated glucose Expected: 08/01/2021, Expires: 10/01/2021 [facility] Work Phone: Comment on above: Expected: 08/01/2021 , Expires: 10/01/2021 Start: 07-03-2021 COVID-19 VACCINE (3 - Booster for Moderna series) COVID-19 VACCINE (3 - Booster for Moderna series) [facility] Start: 2020 BONE DENSITY BONE DENSITY [facility] Start: 2020 Bone Density Screening Bone Density Screening [facility] Start: 2020 Screening for osteoporosis Bone Dens ity Screening [facility] Start: 02-14-2020 COLORECTAL CANCER SCREENING COLORECTAL CANCER SCREENING [facility] Start: 02-14-2020 FECAL OCCULT BLOOD FECAL OCCULT BLOO D [facility] Start: 10-16-2016 Mammography [facility] Start: 10-16-2016 Screening for malign ant neoplasm of breast Mammogram Screening [facility] Start: 10-24-2015 PAP TESTING PAP TESTING [facility] Start: 10-24-2015 Screening for malign ant neoplasm of cervix [facility] Start: 2015 RSV Vaccine (1 - 1-d ose 60+ series) RSV Vaccine (1 - 1-dose 60+ series) [facility] Start: 2015 RSV Vaccine (1 - Ris k 60-74 years 1-dose series) RSV Vaccine (1 - Risk 60-74 years 1-dose series) [facility] Start: 2005 SHINGRIX VACCINE (1 of 2) HARDIN GRIX VACCINE (1 of 2) [facility] Start: 2000 COLOGUARD (FIT-DNA) COLOGUARD (FIT-D NA) [facility] Start: 2000 Colonoscopy COLONOSCOPY [facility] Start: [address] COLONOGRAPHY [facility] Start: 2000 Screening for malign ant neoplasm of colon [facility] Start: 2000 SIGMOIDOSCOPY SIGMOIDOSCOPY [facility] Start: 1985 Zoledronic acid therapy ALPHA- 1 ANTITRYPSIN DEFICIENCY SCREENING [facility] Start: 1973 BP CONTROLLED (<130/80) BP CONTROLLE D (<130/80) [facility] Alanine aminotransfe rase [Enzymatic activity/volume] in Serum or Plasma [facility] Albumin [Mass/volume ] in Serum or Plasma [facility] Alkaline phosphatase [Enzymatic activity/volume] in Serum or Plasma [facility] Anion gap measurement [facility] Aspartate aminotrans ferase [Enzymatic activity/volume] in Serum or Plasma [facility] Bilirubin, total measurement [facility] BUN/Creatinine ratio [facility] Calcium [Mass/volume ] in Serum or Plasma [facility] Carbon dioxide, tota l [Moles/volume] in Serum or Plasma [facility] Chloride [Moles/volu me] in Serum or Plasma [facility] COLOGUARD COLOGUARD Lab Ro frances Screening for colon cancer Ordered: 07/06/2024 [facility] Work Phone: Comment on above: Ordered: 07/06/2024 Creatinine [Moles/vo lume] in Serum or Plasma [facility] End: 06-15-2025 DBT Breast - bilateral screening MICKIE SCREENING W [facility] Radiology Routine Encounter for screening mammogram for breast cancer 1 Occurrences starting 05/16/2024 until 06/15/2025 [facility] Work Phone: Comment on above: 1 Occurrences starti ng 05/16/2024 until 06/15/2025 Erythrocyte mean corpuscular volume determination [facility] Glucose [Mass/volume ] in Serum or Plasma [facility] Hematocrit [Volume Fraction] of Blood [facility] Hemoglobin [Mass/vol ume] in Blood [facility] Leukocytes [#/volume ] in Blood [facility] Magnesium [Mass/volu me] in Serum or Plasma [facility] Mean corpuscular hemoglobin concentration determination [facility] Mean corpuscular hemoglobin determination [facility] Measurement of renal function [facility] End: 07-15-2024 MG Breast Screening MICKIE SCREENING Radiology Routine Encounter for screening mammogram for breast cancer 1 Occurrences starting 06/16/2023 until 07/15/2024 [facility] Work Phone: Comment on above: 1 Occurrences starti ng 06/16/2023 until 07/15/2024 Neutrophil count [facility] Neutrophil percent differential count [facility] End: 02-12-2023 OXIMETRY WITH AMBULATION OXIMETRY WITH AMBULATION PFT Routine Chronic obstructive pulmonary disease, unspecified COPD type (HCC) 1 Occurrences starting 01/13/2022 until 02/12/2023 [facility] Work Phone: Comment on above: 1 Occurrences starti ng 01/13/2022 until 02/12/2023 Patient referral [facility] Work Phone: Platelets [#/volume] in Blood [facility] Potassium [Moles/vol ume] in Serum or Plasma [facility] Red blood cell count [facility] Red cell distributio n width determination [facility] Serum inorganic phos phate measurement [facility] Sodium [Moles/volume ] in Serum or Plasma [facility] Total protein measurement [facility] Urea nitrogen [Mass/volume] in Serum or Plasma [facility] Immunizations Immunization Date Immunization Notes Care Provider Sasha ibanez 02-19-2023 influenza (HD-IIV4) vaccine, age 65+ yr, high dose, quadrivalent, PF (FLUZONE HIGH-DOSE) Yoseph Fall MD Work Phone: [facility] 02-19-2023 influenza virus vacc ine, unspecified formulation Yoseph Fall MD Work Phone: [facility] 07-17-2021 pneumococcal polysaccharide vaccine, 23 valent Yoseph Fall MD Work Phone: [facility] 02-08-2019 influenza, injectabl e, quadrivalent, contains preservative Yoseph Fall MD Work Phone: [facility] 02-08-2019 influenza virus vacc ine, unspecified formulation Yoseph Fall MD Work Phone: [facility] 05-11-2018 influenza, injectabl e, quadrivalent, contains preservative Yoseph Fall MD Work Phone: [facility] 09-24-2017 pneumococcal conjuga te vaccine, 13 valent Yoseph Fall MD Work Phone: [facility] 02-25-2016 influenza, seasonal, injectable Yoseph Fall MD Work Phone: [facility] Work Phone: 10-24-2013 tetanus toxoid, redu ani diphtheria toxoid, and acellular pertussis vaccine, adsorbed Yoseph Fall MD Work Phone: [facility] 10-22-2013 tetanus toxoid, redu ani diphtheria toxoid, and acellular pertussis vaccine, adsorbed [facility] 03-13-2013 influenza virus vacc ine, unspecified formulation Yoseph Fall MD Work Phone: [facility] 03-09-2013 Influenza virus vaccine W [facility] 03-21-2012 pneumococcal polysaccharide vaccine, 23 valent Yoseph Fall MD Work Phone: [facility] 03-21-2012 pneumococcal vaccine , unspecified formulation [facility] 03-17-2010 pneumococcal polysaccharide vaccine, 23 valent Yoseph Fall MD Work Phone: [facility] Work Phone: 03-03-2010 influenza virus vacc ine, unspecified formulation Yoseph Fall MD Work Phone: [facility] 02-10-2008 influenza virus vacc ine, unspecified formulation Yoseph Fall MD Work Phone: [facility] 03-22-2007 influenza virus vacc ine, unspecified formulation Yoseph Fall MD Work Phone: [facility] Work Phone: 04-14-2005 influenza virus vacc ine, unspecified formulation Yoseph Fall MD Work Phone: [facility] Work Phone: 04-13-2005 pneumococcal polysaccharide vaccine, 23 valent Yoseph Fall MD Work Phone: [facility] Work Phone: Payers Date Payer Category Payer Self-pay [id number] 2023 [facility] [id number] 2017 Medicaid [id number] 2017 Medicare [id number] 2017 Medicare [id number] 2017 Medicare (Managed Care) [facility] [id number] 2015 Unknown [id number] Unknown [id number] Unknown [id number] Unknown [id number] Unknown [id number] Social History Date Type Detail Facility Start: 1969 End: 04-07-2024 Tobacco smoking status NHIS Smokes tobacco daily [facility] Work Phone: Start: 1969 History of tobacco use Cigarette Smo ker [facility] Work Phone: Start: 07-17-2021 End: 07-06-2024 Alcohol intake Current drinker of alcohol (finding) [facility] Start: 10-23-2014 History SDOH Alcohol Comment 12 drinks per week [facility] Start: 1955 Sex Assigned At Not on file C [facility] Start: 07-07-2021 End: 10-17-2021 Exposure to SARS-CoV-2 (event) Not sure [facility] Start: 12-07-2019 End: 11-13-2022 Cigarettes smoked current (pack per day) - Reported 1 [facility] Start: 12-07-2019 End: 04-07-2024 Tobacco use and exposure Smokeless tobacco non-user [facility] Start: 08-07-2022 End: 11-13-2022 Tobacco use panel [facility] Adult Depression Screening Assessment 0 [facility] Start: 07-20-2023 End: 07-20-2023 Tobacco smoking status NHIS Unknown if ever smoked [facility] Start: 07-20-2023 Sober [facility] Start: 07-20-2023 None [facility] Start: 09-23-2014 Spouse/ Signif icant Other [facility] Start: 07-20-2023 Cigarettes [facility] Start: 1955 Sex Assigned At Female W [facility] Goals Date Patient Goal Desired Activity /State Personal health goal Functional Status Date Assessment Result Facility 07-22-2023 Functional status Chair [facility] Work Phone: 06-29-2016 Are you deaf, or do you have serious difficulty hearing No 06/29/2016 3:38 PM Nancy Pyane RN No [facility] 06-29-2016 Are you blind, or do you have serious difficulty seeing, even when wearing glasses No 06/29/2016 3:38 PM Nancy Payne RN No [facility] 06-29-2016 Do you have serious difficulty walking or climbing stairs Yes 06/29/2016 3:38 PM Nancy Payne RN Yes [facility] 06-29-2016 Do you have difficul ty dressing or bathing No 06/29/2016 3:38 PM Nancy Payne RN No [facility] 06-29-2016 Because of a physica l, mental, or emotional condition, do you have difficulty doing errands alone such as visiting a physician's office or shopping Yes 06/29/2016 3:38 PM Nancy Payne RN Yes [facility] Mental Status Date Assessment Result Facility 07-22-2023 Cognitive function Voice/Name [facility] Work Phone: 06-29-2016 Because of a physica l, mental, or emotional condition, do you have serious difficulty concentrating, remembering, or making decisions No 06/29/2016 3:38 PM Nancy Payne RN No [facility] Clinical Notes 06-30-2016 to 08-29-2024 Telephone Encounter - Nelson Robert APRN.[place] - 08/29/2024 11:07 AM EDTTelephone Encounter - Nelson Robert APRN.CNP - 08/29/2024 11:07 AM EDTTelephone Encounter - SarahElma - 08/29/2024 10:53 AM EDT Note Date & Type Note Facility 08-29-2024 Telephone encounter Note The following approved medication requests have been transmitted electronically. Requested Prescriptions Pending Prescriptions Disp Refills ipratropium-albuterol (DUONEB) 0.5 mg-3 mg(2.5 mg base)/3 mL nebu 360 mL 2 Sig: inhale 1 ampule via nebulizer every 4 hours if needed for wheezing. Use over 5 to 15 minutes Nelson Robert APRN.CNP [facility] 08-29-2024 Miscellaneous Notes The following approved medication requests have been transmitted electronically. Requested Prescriptions Pending Prescriptions Disp Refills ipratropium-albuterol (DUONEB) 0.5 mg-3 mg(2.5 mg base)/3 mL nebu 360 mL 2 Sig: inhale 1 ampule via nebulizer every 4 hours if needed for wheezing. Use over 5 to 15 minutes Nelson Robert APRN.CNP Prescription Refill Information The patient has been identified by name and date of : Yes Caregiver verified no other encounters exist for this prescription request: Yes Caregiver confirmed with patient/requestor that no other refills are due, in the near future, with this provider at this time: Yes The last office visit in the department: 07/06/24 Does the patient have a future office visit with this provider/department: Yes Requested Prescriptions Pending Prescriptions Disp Refills ipratropium-albuterol (DUONEB) 0.5 mg-3 mg(2.5 mg base)/3 mL nebu 360 mL 2 Sig: inhale 1 ampule via nebulizer every 4 hours if needed for wheezing. Use over 5 to 15 minutes Elma Sarah August 29, 2024 10:54 AM documented in this encounter [facility] 08-29-2024 Telephone encounter Note Prescription Refill Information The patient has been identified by name and date of : Yes Caregiver verified no other encounters exist for this prescription request: Yes Caregiver confirmed with patient/requestor that no other refills are due, in the near future, with this provider at this time: Yes The last office visit in the department: 07/06/24 Does the patient have a future office visit with this provider/department: Yes Requested Prescriptions Pending Prescriptions Disp Refills ipratropium-albuterol (DUONEB) 0.5 mg-3 mg(2.5 mg base)/3 mL nebu 360 mL 2 Sig: inhale 1 ampule via nebulizer every 4 hours if needed for wheezing. Use over 5 to 15 minutes Elma Sarah August 29, 2024 10:54 AM [facility] 08-15-2024 Telephone encounter Note Approved. PDMP website checked and validated. All prescriptions have been APPROPRIATELY filled. No suspicious activity was identified. 08/15/2024 by Nelson Robert APRN.CNP The following approved medication requests have been transmitted electronically. Requested Prescriptions Signed Prescriptions Disp Refills HYDROcodone-acetaminophen (NORCO) 5-325 mg per tablet 30 tablet 0 Sig: Take 1 tablet by mouth two times a day as needed for pain for up to 30 days. Authorizing Provider: NELSON ROBERT APRN.CNP [facility] 08-15-2024 Miscellaneous Notes Approved. PDMP website checked and validated. All prescriptions have been APPROPRIATELY filled. No suspicious activity was identified. 08/15/2024 by Nelson Robert APRN.CNP The following approved medication requests have been transmitted electronically. Requested Prescriptions Signed Prescriptions Disp Refills HYDROcodone-acetaminophen (NORCO) 5-325 mg per tablet 30 tablet 0 Sig: Take 1 tablet by mouth two times a day as needed for pain for up to 30 days. Authorizing Provider: NELSON ROBERT APRN.[place] Prescription Refill Information The patient has been identified by name and date of : Yes Caregiver verified no other encounters exist for this prescription request: Yes Caregiver confirmed with patient/requestor that no other refills are due, in the near future, with this provider at this time: Yes The last office visit in the department: 07/24/24 -virtual with pcp Does the patient have a future office visit with this provider/department: No Requested Prescriptions Pending Prescriptions Disp Refills HYDROcodone-acetaminophen (NORCO) 5-325 mg per tablet 30 tablet 0 Sig: Take 1 tablet by mouth two times a day as needed for pain for up to 30 days. Jennifer Hennessy LPN August 15, 2024 10:53 AM documented in this encounter [facility] 08-15-2024 Telephone encounter Note Prescription Refill Information The patient has been identified by name and date of : Yes Caregiver verified no other encounters exist for this prescription request: Yes Caregiver confirmed with patient/requestor that no other refills are due, in the near future, with this provider at this time: Yes The last office visit in the department: 07/24/24 -virtual with pcp Does the patient have a future office visit with this provider/department: No Requested Prescriptions Pending Prescriptions Disp Refills HYDROcodone-acetaminophen (NORCO) 5-325 mg per tablet 30 tablet 0 Sig: Take 1 tablet by mouth two times a day as needed for pain for up to 30 days. Jennifer Hennessy LPN August 15, 2024 10:53 AM [facility] 07-24-2024 Telephone encounter Note Pt significant other Mike called and is notified of providers results and instructions. He voices understanding. Clarisse Anguiano RN [facility] 07-24-2024 Miscellaneous Notes Pt significant other Mike called and is notified of providers results and instructions. He voices understanding. Clarisse Anguiano RN She may try taking 40 mg of prednisone (she has 10 mg tablets at home) for 3 days and see if this clears up the rash; sounds like an allergic reaction. Yoseph Fall MD Pts significant other Mike called in and reports Pt was wanting provider to call in medication for a rash she has. He states the Pt does not go out of house and she is on O2. Pt received a new shirt and wore it without washing it and rash is in area where shirt was. It is a flat red rash that it itchy. Pt denies skin being warm or running a fever. Denies rash having any heads on them. I told him provider may want to have a VV so he can see the rash. He states the Pt has a health and safety tech that come in tomorrow and she could try and help the Pt with a VV. He states she usually does phone visits. I told him the provider may need to see the rash. Pt was wanting the provider to order an antibiotic for it. Mike states he knows a cream could probably be called in. Please call and advise Pt. documented in this encounter [facility] 07-24-2024 Telephone encounter Note She may try taking 40 mg of prednisone (she has 10 mg tablets at home) for 3 days and see if this clears up the rash; sounds like an allergic reaction. Yoseph Fall MD T [facility] 07-24-2024 Telephone encounter Note Pts significant other Mike called in and reports Pt was wanting provider to call in medication for a rash she has. He states the Pt does not go out of house and she is on O2. Pt received a new shirt and wore it without washing it and rash is in area where shirt was. It is a flat red rash that it itchy. Pt denies skin being warm or running a fever. Denies rash having any heads on them. I told him provider may want to have a VV so he can see the rash. He states the Pt has a health and safety tech that come in tomorrow and she could try and help the Pt with a VV. He states she usually does phone visits. I told him the provider may need to see the rash. Pt was wanting the provider to order an antibiotic for it. Mike states he knows a cream could probably be called in. Please call and advise Pt. [facility] 07-12-2024 Telephone encounter Note Jenni with [facility] calls to request chart notes to support patients need for continued oxygen. Most recent visits have all been distant health. Jenni requests most recent visit be faxed. Faxed to [phone] per request. Sukhi Marrero RN [facility] 07-12-2024 Miscellaneous Notes Jenni with [facility] calls to request chart notes to support patients need for continued oxygen. Most recent visits have all been distant health. Jenni requests most recent visit be faxed. Faxed to [phone] per request. Sukhi Marrero RN documented in this encounter [facility] 07-06-2024 History of Presen t illness Narrative Chief Complaint Patient presents with: F/U 3 Month HPI: This Team Access Model visit is a virtual/phone encounter. It required patient-provider interaction for the medical decision making as documented below. Patient was offered a virtual/telemedicine appointment in lieu of an office visit due to recommendations to reduce patient exposure to COVID-19. Patient is aware of limitations of performing the visit without a face to face visit in the office setting and agrees. I have communicated my name and active licensure. The patient's identity and physical location were verified at the time of this visit. Either the patient or their legal patient relations representative has been informed of the risks and benefits of -- and alternatives to -- treatment through a remote evaluation and consents to proceed with the evaluation remotely. Completing tele-health visit for routine follow up. Pt reports that she has a lady coming from [facility] tomorrow and asking what shots she needs. Generally receives during this time. Is due for Flu, updated Covid, prevnar 20 (if needed), RSV, Shingles. Tobacco - Still smoking between 5-10 cigarettes per day. Denies any stomach or bowel issues. Agreeable to Cologuard. Reports urinary frequency, but denies any other urinary issues. GERD: Sx controlled on Prilosec 20 mg daily. GERRY/Depression: Reports having a lot of anxiety attacks unsure of what is causing them. Is taking Zoloft 100 mg 2 pills daily and Requip 0.25 mg once daily. Buspar 10 mg BID was added to regimen last visit to help with her anxiety. COPD: Breathing not doing the greatest right now. Checks pulse at home running 93-94 with 2.5-3 L constantly. On current regimen of Prednisone 10 mg 1.5 pills every other day, Albuterol inhaler prn, Singulair 10 mg daily, Spiriva 18 daily and Advair inhaler BID, and nebulizer prn. Uses O2 at 2.5-3 L. Pain: Chronic back; taking [place] 5-325 mg 1 pill BID as needed. She is weaning off this medication. Is taking Tylenol prn and Flexeril 10 mg 1 pill BID as needed. HTN: Checking BP at home, but believes machine may be failing or not working properly. Reading today was 91/65 (pulse 73). Taking Verapamil 240 mg daily and Losartan 50 mg half pill as needed when BP is over 150/90. No chest pains, dizziness, or abnormal sob related to COPD. HM - Pt declines Mammogram (order placed from previously). Cologuard ordered. Past medical history, appointments, medications, allergies reviewed. Previous Medical History PAST MEDICAL HISTORY Diagnosis Date Closed fracture of unspecified part of humerus Arm fracture Dysthymic disorder Depression (non-psychotic) Essential hypertension, benign 04/26/2006 Generalized anxiety disorder Anxiety, Generalized Generalized osteoarthrosis, involving multiple sites Osteoarthritis - renee. hands, knees Malignant neoplasm of bronchus and lung, unspecified site (HCC) 04/26/2003 Lung cancer OR (myocardial infarction) (HCC) 10-10 taken to [facility] heart stopped Obstructive chronic bronchitis with exacerbation (HCC) COPD Other abnormal Papanicolaou smear of cervix and cervical HPV(795.09) 04/26/2002 h/o abnormal paps, had colposcopy vs. cone, hasn't had any paps since dx of lung CA, but her last pap 4+ yrs ago was abnormal per pt Other and unspecified alcohol dependence, unspecified drinking behavior ETOH depend. syn. PMH - PAST MEDICAL HISTORY OF FX right foot Previous Surgical History PAST SURGICAL HISTORY Procedure Laterality Date CONIZATION CERVIX W/WO D&C RPR ELTRD EXC 2003 Dr. Danis BRYSON ERCP 06/22/2016 choledocholithiasis, cholangitis LAPS SURG CHOLECYSTECTOMY W/CHOLANGIOGRAPHY 08/06/2016 PAST SURGICAL HISTORY OF 1987 polyp removed from throat PAST SURGICAL HISTORY OF 1990 ectopic - took tube PAST SURGICAL HISTORY OF 1990 exploratory abd lap -? may have had ovary removed - pt told she cannot have children anymore PICC LINE INSERT/CONSULT 06/26/2016 PULMONARY FUNCTION TEST 08/14/04 RMVL LUNG OTHER THAN PNEUMONECTOMY 1 LOBE LOBECT 04/22/2004 right upper lobectomy Family History FAMILY HISTORY Problem Relation Age of Onset Cancer Mother : Throat, UTERINE Hypertension Mother Cancer Father Stomach CA Heart Father AAA Hypertension Father Heart Paternal Grandmother Breast Cancer Paternal Grandmother Heart Paternal Grandfather Patient Allergies ALLERGIES No Known Allergies Current Medications Current Outpatient Medications on File Prior to Visit Medication Sig HYDROcodone-acetaminophen (NORCO) 5-325 mg per tablet Take 1 tablet by mouth two times a day as needed for pain for up to 30 days. cyclobenzaprine (FLEXERIL) 10 mg tablet Take 1 tablet by mouth two times a day as needed for muscle spasm. montelukast (SINGULAIR) 10 mg tablet Take 1 tablet by mouth once daily. nystatin (MYCOSTATIN) 100,000 unit/mL suspension Take 5 mL by mouth four times daily. 1tsp swish in mouth for several minutes, then swallow (or expectorate) 4 times daily until gone. tiotropium (SPIRIVA) 18 mcg inhalation capsule Inhale 1 capsule as instructed once daily. busPIRone (BUSPAR) 10 mg tablet Take 1 tablet by mouth two times a day. predniSONE (DELTASONE) 10 mg tablet Take 1.5 tablets by mouth every other day. albuterol HFA (VENTOLIN HFA) 90 mcg/actuation inhaler Inhale 2 Puffs as instructed every 4 hours as needed. ipratropium-albuterol (DUONEB) 0.5 mg-3 mg(2.5 mg base)/3 mL nebu inhale 1 ampule via nebulizer every 4 hours if needed for wheezing. Use over 5 to 15 minutes fluticasone-salmeterol (ADVAIR DISKUS) 500-50 mcg/dose dsdv Inhale 1 Puff as instructed two times a day. Rinse and gargle mouth with water after use. rOPINIRole (REQUIP) 0.25 mg tablet Take 1 tablet by mouth daily at bedtime. fluticasone (FLONASE) 50 mcg/actuation nasal spray use 2 sprays in each nostril daily. Rinse mouth after use sertraline (ZOLOFT) 100 mg tablet Take 2 tablets by mouth once daily. verapamil SR (CALAN SR) 240 mg CR tablet Take 1 tablet by mouth daily at bedtime. Cholecalciferol, Vitamin D3, 50 mcg (2,000 unit) cap Take 1 capsule by mouth once daily. omeprazole (PRILOSEC) 20 mg capsule Take 1 capsule by mouth once daily. ON AN EMPTY STOMACH Nicotine Polacrilex [address] 1 Lozenge between cheek and gum as needed. Nebulizer and Compressor For Neb Use as directed. Dx: COPD J44.9 Nebulizer Accessories misc Mask and supplies as needed PULSE OXIMETER CONTE Use as directed to check oxygen saturation level ammonium lactate (AMLACTIN) 12 % lotion Apply 1 application to affected area as needed for Dry Skin. losartan (COZAAR) 50 mg tablet Take 0.5 tablets by mouth once daily. OXYGEN, HOME THERAPY, 2.5 L/min by Nasal Cannula route continuous. Use as directred Disposable Gloves (DISPOSABLE LATEX-FREE GLOVES) [facility] 1 Box once every month. ICD 10: M15.9, J44.9, M54.40 Incontinence Pad, Liner, Disp (POISE PADS) pads Use pads as directed. Dx: N39.46 COMPOUNDED PRESCRIPTION BLOOD PRESSURE CUFF FOR HOME USE. DX: HYPERTENSION I10. AUTOMATIC CUFF. COMPOUNDED PRESCRIPTION Blood pressure monitor for home use. Dx: I10 OXYGEN-AIR DELIVERY SYSTEMS DEVICE as necessary No current facility-administered medications on file prior to visit. Social History Social History Tobacco Use Smoking status: Every Day Current packs/day: 1.00 Average packs/day: 1 pack/day for 55.2 years (55.2 ttl pk-yrs) Types: Cigarettes Start date: 1969 Smokeless tobacco: Never Vaping Use Vaping status: Never Used Substance Use Topics Alcohol use: Yes Comment: Nothing since 03/2012. Drug use: No EXAM: LMP 02/27/2005 Phone visit Health Maintenance List BP Controlled (<130/80) Never done Alpha-1 Antitrypsin Deficiency Screening Never done Shingrix Vaccine(1 of 2) Never done RSV Vaccine(1 - Risk 60-74 years 1-dose series) Never done Cervical Cancer Screening due on 10/24/2015 Mammogram Screening due on 10/16/2016 Bone Density Screening due on 2020 DTaP,Tdap,Td Vaccine(2 - Td or Tdap) due on 10/25/2023 Influenza Vaccine(1) due on 12/26/2023 Covid-19 Vaccine( - season) due on 12/26/2023 Colorectal Cancer Screening due on 01/25/2024 Advance Directive Discussion due on 04/26/2024 Annual PCP Team Chronic Disease Visit due on 04/07/2025 Diabetes Screening due on 02/19/2026 Lipid Screening due on 02/20/2028 Spirometry Completed Hepatitis C Screening Completed Pneumococcal Vaccine: 50+ Completed Data reviewed None ASSESSMENT/PLAN: 1. Chronic obstructive pulmonary disease, unspecified COPD type (HCC) - ICD9: 496, ICD10: J44.9 (primary diagnosis) Continue current medications. 2. Chronic low back pain with sciatica, sciatica laterality unspecified, unspecified back pain laterality - ICD9: 724.2, 724.3, 338.29, ICD10: M54.40, G89.29 Chronic low back pain Continue current medications. - HYDROCODONE 5 MG-ACETAMINOPHEN 325 MG TABLET 3. Essential hypertension, benign - ICD9: 401.1, ICD10: I10 - Home blood pressure readings controlled - Continue current medications - Recommend home blood pressure monitoring, to bring results to next visit - Encouraged sodium restriction, DASH or Mediterranean diet - Recommend regular aerobic exercise 4. Generalized anxiety disorder - ICD9: 300.02, ICD10: F41.1 Continue current medications. 5. Depression, unspecified depression type - ICD9: 311, ICD10: F32.A Continue current medications. 6. Gastroesophageal reflux disease without esophagitis - ICD9: 530.81, ICD10: K21.9 7. Thrush, oral - ICD9: 112.0, ICD10: B37.0 - NYSTATIN 100,000 UNIT/ML ORAL SUSPENSION 8. Tobacco use disorder - ICD9: 305.1, ICD10: F17.200 - Cessation encouraged. - Physiologic and physical aspects of tobacco addiction as well as strategies for quitting were discussed. - Counseling was given focusing on the harmful effects of this addiction especially given the patient's medical condition(s) which will be worsened because of the chemicals in tobacco. 9. Screening for colon cancer - ICD9: V76.51, ICD10: Z12.11 - COLOGUARD Follow up in 3 months I agree with the Chief Complaint, ROS, and Past Histories independently gathered by the clinical shipping support and the remaining scribed note accurately describes my personal service to the patient. 11-20 minutes of time spent on phone call Yoseph Fall MD The documentation for this note was completed by Sanjana Baca MA acting as scribe for Yoseph Fall MD. July 06, 2024 2:02 PM. Sanjana Baca MA documented in this encounter [facility] 07-06-2024 Note HNO ID: [id number] Author: YOSEPH FALL MD Service: ? Author Type: Physician Type: Progress Notes Filed: 07/06/2024 14:08 Note Text: Chief Complaint Patient presents with: F/U 3 Month HPI: This Team Access Model visit is a virtual/phone encounter. It required patient-provider interaction for the medical decision making as documented below. Patient was offered a virtual/telemedicine appointment in lieu of an office visit due to recommendations to reduce patient exposure to COVID-19. Patient is aware of limitations of performing the visit without a face to face visit in the office setting and agrees. I have communicated my name and active licensure. The patient's identity and physical location were verified at the time of this visit. Either the patient or their legal patient relations representative has been informed of the risks and benefits of -- and alternatives to -- treatment through a remote evaluation and consents to proceed with the evaluation remotely. Completing tele-health visit for routine follow up. Pt reports that she has a lady coming from [facility] tomorrow and asking what shots she needs. Generally receives during this time. Is due for Flu, updated Covid, prevnar 20 (if needed), RSV, Shingles. Tobacco - Still smoking between 5-10 cigarettes per day. Denies any stomach or bowel issues. Agreeable to Cologuard. Reports urinary frequency, but denies any other urinary issues. GERD: Sx controlled on Prilosec 20 mg daily. GERRY/Depression: Reports having a lot of anxiety attacks unsure of what is causing them. Is taking Zoloft 100 mg 2 pills daily and Requip 0.25 mg once daily. Buspar 10 mg BID was added to regimen last visit to help with her anxiety. COPD: Breathing not doing the greatest right now. Checks pulse at home running 93-94 with 2.5-3 L constantly. On current regimen of Prednisone 10 mg 1.5 pills every other day, Albuterol inhaler prn, Singulair 10 mg daily, Spiriva 18 daily and Advair inhaler BID, and nebulizer prn. Uses O2 at 2.5-3 L. Pain: Chronic back; taking [place] 5-325 mg 1 pill BID as needed. She is weaning off this medication. Is taking Tylenol prn and Flexeril 10 mg 1 pill BID as needed. HTN: Checking BP at home, but believes machine may be failing or not working properly. Reading today was 91/65 (pulse 73). Taking Verapamil 240 mg daily and Losartan 50 mg half pill as needed when BP is over 150/90. No chest pains, dizziness, or abnormal sob related to COPD. HM - Pt declines Mammogram (order placed from previously). Cologuard ordered. Past medical history, appointments, medications, allergies reviewed. Previous Medical History PAST MEDICAL HISTORY Diagnosis Date Closed fracture of unspecified part of humerus Arm fracture Dysthymic disorder Depression (non-psychotic) Essential hypertension, benign 04/26/2006 Generalized anxiety disorder Anxiety, Generalized Generalized osteoarthrosis, involving multiple sites Osteoarthritis - renee. hands, knees Malignant neoplasm of bronchus and lung, unspecified site (HCC) 04/26/2003 Lung cancer OR (myocardial infarction) (HCC) 10-10 taken to [facility] heart stopped Obstructive chronic bronchitis with exacerbation (HCC) COPD Other abnormal Papanicolaou smear of cervix and cervical HPV(795.09) 04/26/2002 h/o abnormal paps, had colposcopy vs. cone, hasn't had any paps since dx of lung CA, but her last pap 4+ yrs ago was abnormal per pt Other and unspecified alcohol dependence, unspecified drinking behavior ETOH depend. syn. PMH - PAST MEDICAL HISTORY OF FX right foot Previous Surgical History PAST SURGICAL HISTORY Procedure Laterality Date CONIZATION CERVIX W/WO DANDC RPR ELTRD EXC 2003 Dr. Danis BRYSON ERCP 06/22/2016 choledocholithiasis, cholangitis LAPS SURG CHOLECYSTECTOMY W/CHOLANGIOGRAPHY 08/06/2016 PAST SURGICAL HISTORY OF 1987 polyp removed from throat PAST SURGICAL HISTORY OF 1990 ectopic - took tube PAST SURGICAL HISTORY OF 1990 exploratory abd lap -? may have had ovary removed - pt told she cannot have children anymore PICC LINE INSERT/CONSULT 06/26/2016 PULMONARY FUNCTION TEST 08/14/04 RMVL LUNG OTHER THAN PNEUMONECTOMY 1 LOBE LOBECT 04/22/2004 right upper lobectomy Family History FAMILY HISTORY Problem Relation Age of Onset Cancer Mother : Throat, UTERINE Hypertension Mother Cancer Father Stomach CA Heart Father AAA Hypertension Father Heart Paternal Grandmother Breast Cancer Paternal Grandmother Heart Paternal Grandfather Patient Allergies ALLERGIES No Known Allergies Current Medications Current Outpatient Medications on File Prior to Visit Medication Sig HYDROcodone-acetaminophen (NORCO) 5-325 mg per tablet Take 1 tablet by mouth two times a day as needed for pain for up to 30 days. cyclobenzaprine (FLEXERIL) 10 mg tablet Take 1 tablet by mouth two times a day as needed for muscle spasm. montelukast (SINGULAIR) (more content not included)... [facility] 06-22-2024 Telephone encounter Note The patient has been identified by name and date of : Yes Caregiver verified no other encounters exist for this prescription request: Yes Caregiver confirmed with patient/requestor that no other refills are due, in the near future, with this provider at this time: Yes The last office visit in the department: 02/19/2023 Does the patient have a future office visit with this provider/department: Yes 07/06/2024 Requested Prescriptions Pending Prescriptions Disp Refills sertraline (ZOLOFT) 100 mg tablet 180 tablet 3 Sig: Take 2 tablets by mouth once daily. busPIRone (BUSPAR) 10 mg tablet 60 tablet 2 Sig: Take 1 tablet by mouth two times a day. Cholecalciferol, Vitamin D3, 50 mcg (2,000 unit) cap 90 capsule 3 Sig: Take 1 capsule by mouth once daily. omeprazole (PRILOSEC) 20 mg capsule 30 capsule 11 Sig: Take 1 capsule by mouth once daily. ON AN EMPTY STOMACH Brynn Watson LPN June 22, 2024 10:53 AM [facility] 06-22-2024 Miscellaneous Notes The patient has been identified by name and date of : Yes Caregiver verified no other encounters exist for this prescription request: Yes Caregiver confirmed with patient/requestor that no other refills are due, in the near future, with this provider at this time: Yes The last office visit in the department: 02/19/2023 Does the patient have a future office visit with this provider/department: Yes 07/06/2024 Requested Prescriptions Pending Prescriptions Disp Refills sertraline (ZOLOFT) 100 mg tablet 180 tablet 3 Sig: Take 2 tablets by mouth once daily. busPIRone (BUSPAR) 10 mg tablet 60 tablet 2 Sig: Take 1 tablet by mouth two times a day. Cholecalciferol, Vitamin D3, 50 mcg (2,000 unit) cap 90 capsule 3 Sig: Take 1 capsule by mouth once daily. omeprazole (PRILOSEC) 20 mg capsule 30 capsule 11 Sig: Take 1 capsule by mouth once daily. ON AN EMPTY STOMACH Brynn Watson LPN June 22, 2024 10:53 AM documented in this encounter [facility] 06-19-2024 Telephone encounter Note OK to refill as ordered Yoseph Fall MD [facility] 06-19-2024 Miscellaneous Notes OK to refill as ordered Yoseph Fall MD The patient has been identified by name and date of : Yes Caregiver verified no other encounters exist for this prescription request: Yes Caregiver confirmed with patient/requestor that no other refills are due, in the near future, with this provider at this time: Yes The last office visit in the department: 02/19/2023 Does the patient have a future office visit with this provider/department: Yes 07/06/2024 Requested Prescriptions Pending Prescriptions Disp Refills HYDROcodone-acetaminophen (NORCO) 5-325 mg per tablet 30 tablet 0 Sig: Take 1 tablet by mouth two times a day as needed for pain for up to 30 days. Mikayla Mora LPN June 19, 2024 9:31 AM documented in this encounter [facility] 06-19-2024 Telephone encounter Note The patient has been identified by name and date of : Yes Caregiver verified no other encounters exist for this prescription request: Yes Caregiver confirmed with patient/requestor that no other refills are due, in the near future, with this provider at this time: Yes The last office visit in the department: 02/19/2023 Does the patient have a future office visit with this provider/department: Yes 07/06/2024 Requested Prescriptions Pending Prescriptions Disp Refills HYDROcodone-acetaminophen (NORCO) 5-325 mg per tablet 30 tablet 0 Sig: Take 1 tablet by mouth two times a day as needed for pain for up to 30 days. Mikayla Mora LPN June 19, 2024 9:31 AM [facility] 06-12-2024 Telephone encounter Note Form completed and faxed back to information below. Sanjana Baca MA [facility] 06-12-2024 Miscellaneous Notes Form completed and faxed back to information below. Sanjana Baca MA Type of form: Medical Necessity for incontinence supplies. Form received via fax When form is completed, Fax form to [phone] Form has been forwarded to Physician Desk: Dr. Eufemia Baca MA documented in this encounter [facility] 06-12-2024 Telephone encounter Note Type of form: Medical Necessity for incontinence supplies. Form received via fax When form is completed, Fax form to [phone] Form has been forwarded to Physician Desk: Dr. Eufemia Baca MA [facility] 06-02-2024 Telephone encounter Note Images from the original note were not included. Electronic PA rec'd and completed for cyclobenzaprine. This was denied. Note from payer: CaseId:[id number];Status:Denied;Re view Type:Prior Auth;Appeal Information: Attention:ATTN: MED[employer]ARE [employer] [address] [address],[place], [place],[address] WebAddress:[email or web address]; Important - Please read the below note on eAppeals: Please reference the denial letter for information on the rights for an appeal, rationale for the denial, and how to submit an appeal including if any information is needed to support the appeal. Note about urgent situations - Generally, an urgent situation is one which, in the opinion of the provider, the health of the patient may be in serious jeopardy or may experience pain that cannot be adequately controlled while waiting for a decision on the appeal.; Payer: [employer] HOME DELIVERY [phone] Electronic appeal: Supported View History Notes Time User Attachment Attachment received from [employer]. 06/01/2024 7:17 PM [facility] Priorauth In Document Medication Being Authorized cyclobenzaprine (FLEXERIL) 10 mg tablet Take 1 tablet by mouth two times a day as needed for muscle spasm. Dispense: 60 tablet Refills: 5 Start: 06/01/2024 Class: Normal Diagnoses: Generalized osteoarthrosis, involving multiple sites This order has been released to its destination. To be filled at: [facility] [address] [place] [address] [address] [facility] - [phone] [facility] 06-02-2024 Miscellaneous Notes Images from the original note were not included. Electronic PA rec'd and completed for cyclobenzaprine. This was denied. Note from payer: CaseId:[id number];Status:Denied;Re view Type:Prior Auth;Appeal Information: Attention:ATTN: [employer] [place] [address] [address],[place], [place],[address] WebAddress:[email or web address]; Important - Please read the below note on eAppeals: Please reference the denial letter for information on the rights for an appeal, rationale for the denial, and how to submit an appeal including if any information is needed to support the appeal. Note about urgent situations - Generally, an urgent situation is one which, in the opinion of the provider, the health of the patient may be in serious jeopardy or may experience pain that cannot be adequately controlled while waiting for a decision on the appeal.; Payer: [employer] HOME DELIVERY [phone] Electronic appeal: Supported View History Notes Time User Attachment Attachment received from payer. 06/01/2024 7:17 PM [facility] Rx Priorauth In Document Medication Being Authorized cyclobenzaprine (FLEXERIL) 10 mg tablet Take 1 tablet by mouth two times a day as needed for muscle spasm. Dispense: 60 tablet Refills: 5 Start: 06/01/2024 Class: Normal Diagnoses: Generalized osteoarthrosis, involving multiple sites This order has been released to its destination. To be filled at: [facility] [address] [place] [address] [address] - [phone] documented in this encounter [facility] 06-01-2024 Telephone encounter Note OK to refill as ordered Yoseph Fall MD [facility] 06-01-2024 Miscellaneous Notes OK to refill as ordered Yoseph Fall MD Please see bolded note below. The patient has been identified by name and date of : Yes Caregiver verified no other encounters exist for this prescription request: Yes Caregiver confirmed with patient/requestor that no other refills are due, in the near future, with this provider at this time: Yes The last office visit in person in the department was 02/19/2023 and that is when pt had her last lab work completed and her last drug screen. No testing done in 2023. Explained to pt that she needs to be seen in office once a year and get her labwork yearly. Pt refuses to change her 07/06/24 appt to in person or have labs drawn until her doctor tells her she needs to come in. Does the patient have a future office visit with this provider/department: Yes 07/06/2024 but appt is virtual again. Also pt states that she looked at her Singulair bottle and noted that the instructions on the bottle are incorrect. Pt states she takes her Singulair once a day and that is how she has taken it for years. Current script has directions as one-two tabs every 4 hours prn. Per med history, the change came on 06/29/22 prescription request. Unsure of why sig was changed. Pt states she has never taken it more than once a day and wants the directions corrected. New prescription pended with corrected sig. Requested Prescriptions Pending Prescriptions Disp Refills cyclobenzaprine (FLEXERIL) 10 mg tablet 60 tablet 5 Sig: Take 1 tablet by mouth two times a day as needed for muscle spasm. montelukast (SINGULAIR) 10 mg tablet 90 tablet 0 Sig: Take 1 tablet by mouth once daily. Meenu Gurrola RN June 01, 2024 2:45 PM documented in this encounter [facility] 06-01-2024 Telephone encounter Note Please see bolded note below. The patient has been identified by name and date of : Yes Caregiver verified no other encounters exist for this prescription request: Yes Caregiver confirmed with patient/requestor that no other refills are due, in the near future, with this provider at this time: Yes The last office visit in person in the department was 02/19/2023 and that is when pt had her last lab work completed and her last drug screen. No testing done in 2023. Explained to pt that she needs to be seen in office once a year and get her labwork yearly. Pt refuses to change her 07/06/24 appt to in person or have labs drawn until her doctor tells her she needs to come in. Does the patient have a future office visit with this provider/department: Yes 07/06/2024 but appt is virtual again. Also pt states that she looked at her Singulair bottle and noted that the instructions on the bottle are incorrect. Pt states she takes her Singulair once a day and that is how she has taken it for years. Current script has directions as one-two tabs every 4 hours prn. Per med history, the change came on 06/29/22 prescription request. Unsure of why sig was changed. Pt states she has never taken it more than once a day and wants the directions corrected. New prescription pended with corrected sig. Requested Prescriptions Pending Prescriptions Disp Refills cyclobenzaprine (FLEXERIL) 10 mg tablet 60 tablet 5 Sig: Take 1 tablet by mouth two times a day as needed for muscle spasm. montelukast (SINGULAIR) 10 mg tablet 90 tablet 0 Sig: Take 1 tablet by mouth once daily. Meenu Gurrola RN June 01, 2024 2:45 PM [facility] 05-16-2024 Telephone encounter Note OK to refill as ordered Yoseph Fall MD [facility] 05-16-2024 Miscellaneous Notes OK to refill as ordered Yoseph Fall MD [facility] The patient has been identified by name and date of : Yes Caregiver verified no other encounters exist for this prescription request: Yes Caregiver confirmed with patient/requestor that no other refills are due, in the near future, with this provider at this time: Yes The last office visit in the department: 02/19/2023 Does the patient have a future office visit with this provider/department: 07/06/2024 Requested Prescriptions Pending Prescriptions Disp Refills HYDROcodone-acetaminophen (NORCO) 5-325 mg per tablet 30 tablet 0 Sig: Take 1 tablet by mouth two times a day as needed for pain for up to 30 days. nystatin (MYCOSTATIN) 100,000 unit/mL suspension 200 mL 2 Sig: Take 5 mL by mouth four times daily. 1tsp swish in mouth for several minutes, then swallow (or expectorate) 4 times daily until gone. Sukhi Marrero RN May 16, 2024 10:31 AM documented in this encounter [facility] 05-16-2024 Telephone encounter Note The patient has been identified by name and date of : Yes Caregiver verified no other encounters exist for this prescription request: Yes Caregiver confirmed with patient/requestor that no other refills are due, in the near future, with this provider at this time: Yes The last office visit in the department: 02/19/2023 Does the patient have a future office visit with this provider/department: 07/06/2024 Requested Prescriptions Pending Prescriptions Disp Refills HYDROcodone-acetaminophen (NORCO) 5-325 mg per tablet 30 tablet 0 Sig: Take 1 tablet by mouth two times a day as needed for pain for up to 30 days. nystatin (MYCOSTATIN) 100,000 unit/mL suspension 200 mL 2 Sig: Take 5 mL by mouth four times daily. 1tsp swish in mouth for several minutes, then swallow (or expectorate) 4 times daily until gone. Sukhi Marrero RN May 16, 2024 10:31 AM [facility] 05-16-2024 Note Patient Outreach (FA MPWS) DENIA GONZALEZ ([id number]) 1955 F Date Time Provider Department 05/16/24 YOSEPH FALL During your visit today, we recorded the following information about you: Allergies As of Date: 05/16/2024 (No Known Allergies) Date Reviewed: 04/07/2024 Reviewed by: Sanjana Baca MA - Fully Assessed Visit Diagnosis:Encounter for screening mammogram for breast cancer [Z12.31] Order(s):[facility] SCREENING [facility] [[id number]] Order #: [id number] FUTURE Prescriptions as of 06/16/2024 - cyclobenzaprine (FLEXERIL) 10 mg tablet Take 1 tablet by mouth two times a day as needed for muscle spasm. - montelukast (SINGULAIR) 10 mg tablet Take 1 tablet by mouth once daily. - HYDROcodone-acetaminophen (NORCO) 5-325 mg per tablet Take 1 tablet by mouth two times a day as needed for pain for up to 30 days. - nystatin (MYCOSTATIN) 100,000 unit/mL suspension Take 5 mL by mouth four times daily. 1tsp swish in mouth for several minutes, then swallow (or expectorate) 4 times daily until gone. - tiotropium (SPIRIVA) 18 mcg inhalation capsule Inhale 1 capsule as instructed once daily. - busPIRone (BUSPAR) 10 mg tablet Take 1 tablet by mouth two times a day. - predniSONE (DELTASONE) 10 mg tablet Take 1.5 tablets by mouth every other day. - albuterol HFA (VENTOLIN HFA) 90 mcg/actuation inhaler Inhale 2 Puffs as instructed every 4 hours as needed. - ipratropium-albuterol (DUONEB) 0.5 mg-3 mg(2.5 mg base)/3 mL nebu inhale 1 ampule via nebulizer every 4 hours if needed for wheezing. Use over 5 to 15 minutes - fluticasone-salmeterol (ADVAIR DISKUS) 500-50 mcg/dose dsdv Inhale 1 Puff as instructed two times a day. Rinse and gargle mouth with water after use. - rOPINIRole (REQUIP) 0.25 mg tablet Take 1 tablet by mouth daily at bedtime. - fluticasone (FLONASE) 50 mcg/actuation nasal spray use 2 sprays in each nostril daily. Rinse mouth after use - sertraline (ZOLOFT) 100 mg tablet Take 2 tablets by mouth once daily. - verapamil SR (CALAN SR) 240 mg CR tablet Take 1 tablet by mouth daily at bedtime. - Cholecalciferol, Vitamin D3, 50 mcg (2,000 unit) cap Take 1 capsule by mouth once daily. - omeprazole (PRILOSEC) 20 mg capsule Take 1 capsule by mouth once daily. ON AN EMPTY STOMACH - Nicotine Polacrilex [address] 1 Lozenge between cheek and gum as needed. - Nebulizer and Compressor For Neb Use as directed. Dx: COPD J44.9 - Nebulizer Accessories [facility] Mask and supplies as needed - PULSE OXIMETER [facility] Use as directed to check oxygen saturation level - ammonium lactate (AMLACTIN) 12 % lotion Apply 1 application to affected area as needed for Dry Skin. - losartan (COZAAR) 50 mg tablet Take 0.5 tablets by mouth once daily. - OXYGEN, HOME THERAPY, 2.5 L/min by Nasal Cannula route continuous. Use as directred - Disposable Gloves (DISPOSABLE LATEX-FREE GLOVES) [facility] 1 Box once every month. ICD 10: M15.9, J44.9, M54.40 - Incontinence Pad, Liner, Disp (POISE PADS) pads Use pads as directed. Dx: N39.46 - COMPOUNDED PRESCRIPTION BLOOD PRESSURE CUFF FOR HOME USE. DX: HYPERTENSION I10. AUTOMATIC CUFF. - COMPOUNDED PRESCRIPTION Blood pressure monitor for home use. Dx: I10 - OXYGEN-AIR DELIVERY SYSTEMS DEVICE as necessary Meds Comments as of 07/03/2019: Not using nicorette gum or lozenge but will be starting Problem List As Of Date 05/16/2024 Noted Resolved Other and unspecified alcohol dependence, unspe* 08/11/2018 LUNG CANCER [C34.10] 04/13/2005 06/27/2016 MALIG NEOPLASM BRONCH/LUNG NOS [C34.90] 12/08/2006 DYSTHYMIC DISORDER [F34.1] TOBACCO USE DISORDER [F17.200] 08/21/2005 Stage 3 severe COPD by GOLD classification ([facility]*09/28/2005 Asthma [J45.909] GENERAL OSTEOARTHROSIS [M15.9] Essential hypertension, benign [I10] GENERALIZED ANXIETY DIS [F41.1] ABNORMAL PAP SMEAR OF CERVIX NEC AND HPV [R89.6] ESOPHAGEAL REFLUX [K21.9] 03/22/2007 Back pain [M54.9] 10/21/2010 07/15/2021 Cholelithiasis with acute cholangitis with bili*06/21/2016 06/27/2016 Constipation [K59.00] 06/21/2016 06/27/2016 Bacteremia [R78.81] 06/23/2016 06/27/2016 Splenic lesion [D73.89] 06/25/2016 Calculus of bile duct with acute cholangitis wi*06/30/2016 MRSA bacteremia [R78.81, B95.62] 06/30/2016 03/22/2017 S/P laparoscopic cholecystectomy [Z90.49] 08/06/2016 le [Z51.81] 05/16/2021 Chronic respiratory failure with hypoxia (HCC) *02/20/2022 Cigarette smoker [F17.210] 02/20/2022 Obstructive chronic bronchitis with exacerbatio* Encounter Status:Closed by [employer], [employer] on 06/16/24 [facility] 04-10-2024 Telephone encounter Note The following approved medication requests have been transmitted electronically. Requested Prescriptions Pending Prescriptions Disp Refills tiotropium (SPIRIVA) 18 mcg inhalation capsule 30 capsule 11 Sig: Inhale 1 capsule as instructed once daily. Nelson Robert APRN.CNP [facility] 04-10-2024 Miscellaneous Notes The following approved medication requests have been transmitted electronically. Requested Prescriptions Pending Prescriptions Disp Refills tiotropium (SPIRIVA) 18 mcg inhalation capsule 30 capsule 11 Sig: Inhale 1 capsule as instructed once daily. Nelson Robert APRN.CNP The patient has been identified by name and date of : Yes Caregiver verified no other encounters exist for this prescription request: Yes Caregiver confirmed with patient/requestor that no other refills are due, in the near future, with this provider at this time: Yes The last office visit in the department: 02/19/2023 Does the patient have a future office visit with this provider/department: Yes 07/06/2024 Requested Prescriptions Pending Prescriptions Disp Refills tiotropium (SPIRIVA) 18 mcg inhalation capsule 30 capsule 11 Sig: Inhale 1 capsule as instructed once daily. Judy Bliss RN April 10, 2024 12:21 PM documented in this encounter [facility] 04-10-2024 Telephone encounter Note The patient has been identified by name and date of : Yes Caregiver verified no other encounters exist for this prescription request: Yes Caregiver confirmed with patient/requestor that no other refills are due, in the near future, with this provider at this time: Yes The last office visit in the department: 02/19/2023 Does the patient have a future office visit with this provider/department: Yes 07/06/2024 Requested Prescriptions Pending Prescriptions Disp Refills tiotropium (SPIRIVA) 18 mcg inhalation capsule 30 capsule 11 Sig: Inhale 1 capsule as instructed once daily. Judy Bliss RN April 10, 2024 12:21 PM [facility] 04-07-2024 History of Presen t illness Narrative Chief Complaint Patient presents with: F/U 3 Month HPI:This Team Access Model visit is a virtual encounter. It required patient-provider interaction for the medical decision making as documented below. Patient was offered a virtual/telemedicine appointment in lieu of an office visit due to recommendations to reduce patient exposure to COVID-19. Patient is aware of limitations of performing the visit without a face to face visit in the office setting and agrees. Pt completing a tele-health visit today for her routine follow up. I have communicated my name and active licensure. The patient's identity and physical location were verified at the time of this visit. Either the patient or their legal patient relations representative has been informed of the risks and benefits of -- and alternatives to -- treatment through a remote evaluation and consents to proceed with the evaluation remotely. 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 Notes increased usage due to stress. Dog recently , grand daughter in hospital. GI/Uro - Denies any stomach, bowel or urinary issues. GERD - Symptoms stable with use of Prilosec 20 mg once daily. Pain - Chronic back pain that is currently being treated with [place] 5-325 mg 1 tab po bid prn. Pt is currently in the process of being weaned down off medication, getting #30 tabs/month. Also taking Tylenol prn and Flexeril 10 mg 1 tab po bid as needed. Reports that [facility] came to her home, visit every 3 months and told her to receive a referral from PCP for Pain Mgmt through Hospice. They will come to her home and treat her. GERRY/Depression - Continues to still have occasional bad days, with increased anxiety and anxiety attacks. Prefers to stay home. Notes some increased stress due to putting down her beagle of 14 years. Also notes granddaughter in [facility]. Trying to learn to live her anxiety and depression. On current regimen of Zoloft 100 mg 2 tabs daily and Requip 0.25 mg once daily. HTN - Monitoring blood pressure at home, reports it's been doing good. BP check at home today was 141/76. Denies any chest pain, dizziness or increased or changes in shortness of breath. On current regimen of Verapamil 240 mg once daily and Losartan 50 mg 0.5 tab as needed if BP is over 150/90. COPD - Breathing overall stable but states it's so-so. Using Prednisone 10 mg 1.5 tab once every other day, Singulair 10 mg daily, Albuterol Inhaler prn, Advair 500-50 mg 1 puff bid and Spiriva 18 mcg 1 caps daily. Pt on continuous O2 at 2.5-3 L and uses Nebulizer prn. Does note she did get a bloody nose last night felt it was related to her her O2 use. Past medical history, appointments, medications, allergies reviewed. Previous Medical History PAST MEDICAL HISTORY Diagnosis Date Closed fracture of unspecified part of humerus Arm fracture Dysthymic disorder Depression (non-psychotic) Essential hypertension, benign 04/26/2006 Generalized anxiety disorder Anxiety, Generalized Generalized osteoarthrosis, involving multiple sites Osteoarthritis - renee. hands, knees Malignant neoplasm of bronchus and lung, unspecified site (HCC) 04/26/2003 Lung cancer OR (myocardial infarction) (HCC) 10-10 taken to [facility] heart stopped Obstructive chronic bronchitis with exacerbation (HCC) COPD Other abnormal Papanicolaou smear of cervix and cervical HPV(795.09) 04/26/2002 h/o abnormal paps, had colposcopy vs. cone, hasn't had any paps since dx of lung CA, but her last pap 4+ yrs ago was abnormal per pt Other and unspecified alcohol dependence, unspecified drinking behavior ETOH depend. syn. PMH - PAST MEDICAL HISTORY OF FX right foot Previous Surgical History PAST SURGICAL HISTORY Procedure Laterality Date CONIZATION CERVIX W/WO D&C RPR ELTRD EXC 2003 Dr. Danis BRYSON ERCP 06/22/2016 choledocholithiasis, cholangitis LAPS SURG CHOLECYSTECTOMY W/CHOLANGIOGRAPHY 08/06/2016 PAST SURGICAL HISTORY OF 1987 polyp removed from throat PAST SURGICAL HISTORY OF 1990 ectopic - took tube PAST SURGICAL HISTORY OF 1990 exploratory abd lap -? may have had ovary removed - pt told she cannot have children anymore PICC LINE INSERT/CONSULT 06/26/2016 PULMONARY FUNCTION TEST 08/14/04 [facility] LUNG OTHER THAN PNEUMONECTOMY 1 LOBE LOBECT 04/22/2004 right upper lobectomy Family History FAMILY HISTORY Problem Relation Age of Onset Cancer Mother : Throat, UTERINE Hypertension Mother Cancer Father Stomach CA Heart Father AAA Hypertension Father Heart Paternal Grandmother Breast Cancer Paternal Grandmother Heart Paternal Grandfather Patient Allergies ALLERGIES No Known Allergies Current Medications Current Outpatient Medications on File Prior to Visit Medication Sig amoxicillin (AMOXIL) 875 mg tablet Take 1 tablet by mouth two times a day for 10 days. HYDROcodone-acetaminophen (NORCO) 5-325 mg per tablet Take 1 tablet by mouth two times a day as needed for pain for up to 30 days. predniSONE (DELTASONE) 10 mg tablet Take 1.5 tablets by mouth every other day. albuterol HFA (VENTOLIN HFA) 90 mcg/actuation inhaler Inhale 2 Puffs as instructed every 4 hours as needed. ipratropium-albuterol (DUONEB) 0.5 mg-3 mg(2.5 mg base)/3 mL nebu inhale 1 ampule via nebulizer every 4 hours if needed for wheezing. Use over 5 to 15 minutes nystatin (MYCOSTATIN) 100,000 unit/mL suspension Take 5 mL by mouth four times daily. 1tsp swish in mouth for several minutes, then swallow (or expectorate) 4 times daily until gone. fluticasone-salmeterol (ADVAIR DISKUS) 500-50 mcg/dose dsdv Inhale 1 Puff as instructed two times a day. Rinse and gargle mouth with water after use. cyclobenzaprine (FLEXERIL) 10 mg tablet Take 1 tablet by mouth two times a day as needed for muscle spasm. rOPINIRole (REQUIP) 0.25 mg tablet Take 1 tablet by mouth daily at bedtime. fluticasone (FLONASE) 50 mcg/actuation nasal spray use 2 sprays in each nostril daily. Rinse mouth after use sertraline (ZOLOFT) 100 mg tablet Take 2 tablets by mouth once daily. montelukast (SINGULAIR) 10 mg tablet ONE -TWO TABS Q 4HOURS PRN verapamil SR (CALAN SR) 240 mg CR tablet Take 1 tablet by mouth daily at bedtime. Cholecalciferol, Vitamin D3, 50 mcg (2,000 unit) cap Take 1 capsule by mouth once daily. omeprazole (PRILOSEC) 20 mg capsule Take 1 capsule by mouth once daily. ON AN EMPTY STOMACH tiotropium (SPIRIVA) 18 mcg inhalation capsule Inhale 1 capsule as instructed once daily. Nicotine Polacrilex [address] 1 Lozenge between cheek and gum as needed. Nebulizer and Compressor For Neb Use as directed. Dx: COPD J44.9 Nebulizer Accessories [facility] Mask and supplies as needed PULSE OXIMETER [facility] Use as directed to check oxygen saturation level ammonium lactate (AMLACTIN) 12 % lotion Apply 1 application to affected area as needed for Dry Skin. losartan (COZAAR) 50 mg tablet Take 0.5 tablets by mouth once daily. OXYGEN, HOME THERAPY, 2.5 L/min by Nasal Cannula route continuous. Use as directred Disposable Gloves (DISPOSABLE LATEX-FREE GLOVES) [facility] 1 Box once every month. ICD 10: M15.9, J44.9, M54.40 Incontinence Pad, Liner, Disp (POISE PADS) pads Use pads as directed. Dx: N39.46 COMPOUNDED PRESCRIPTION BLOOD PRESSURE CUFF FOR HOME USE. DX: HYPERTENSION I10. AUTOMATIC CUFF. COMPOUNDED PRESCRIPTION Blood pressure monitor for home use. Dx: I10 OXYGEN-AIR DELIVERY SYSTEMS DEVICE as necessary No current facility-administered medications on file prior to visit. Social History Social History Tobacco Use Smoking status: Every Day Current packs/day: 1.00 Average packs/day: 1 pack/day for 54.9 years (54.9 ttl pk-yrs) Types: Cigarettes Start date: 1969 Smokeless tobacco: Never Vaping Use Vaping status: Never Used Substance Use Topics Alcohol use: Yes Comment: Nothing since 03/2012. Drug use: No EXAM: BP 141/76 Pulse 86 Temp 36.7 C (98.1 F) Wt 74.8 kg (165 lb) LMP 02/27/2005 SpO2 93% BMI 29.23 kg/m Health Maintenance List BP Controlled (<130/80) Never done Alpha-1 Antitrypsin Deficiency Screening Never done Shingrix Vaccine(1 of 2) Never done RSV Vaccine(1 - Risk 60-74 years 1-dose series) Never done Cervical Cancer Screening due on 10/24/2015 Mammogram Screening due on 10/16/2016 Bone Density Screening due on 2020 Advance Directive Discussion due on 04/26/2023 DTaP,Tdap,Td Vaccine(2 - Td or Tdap) due on 10/25/2023 Influenza Vaccine(1) due on 12/26/2023 Covid-19 Vaccine( season) due on 12/26/2023 Colorectal Cancer Screening due on 01/25/2024 Annual PCP Team Chronic Disease Visit due on 11/28/2024 Diabetes Screening due on 02/19/2026 Lipid Screening due on 02/20/2028 Spirometry Completed Hepatitis C Screening Completed Pneumococcal Vaccine: 65+ Completed Data reviewed none ASSESSMENT/PLAN: 1. Chronic low back pain with sciatica, sciatica laterality unspecified, unspecified back pain laterality - ICD9: 724.2, 724.3, 338.29, ICD10: M54.40, G89.29 (primary diagnosis) Chronic low back pain Continue current medications. - HYDROCODONE 5 MG-ACETAMINOPHEN 325 MG TABLET 2. Essential hypertension, benign - ICD9: 401.1, ICD10: I10 - Controlled - Continue current medications - Recommend home blood pressure monitoring, to bring results to next visit - Encouraged sodium restriction, DASH or Mediterranean diet - Recommend regular aerobic exercise 3. Generalized anxiety disorder - ICD9: 300.02, ICD10: F41.1 Add Buspar 10 mg bid 4. Depression, unspecified depression type - ICD9: 311, ICD10: F32.A Continue Zoloft 200 mg daily 5. Gastroesophageal reflux disease without esophagitis - ICD9: 530.81, ICD10: K21.9 I agree with the Chief Complaint, ROS, and Past Histories independently gathered by the clinical shipping support and the remaining scribed note accurately describes my personal service to the patient. 11-20 minutes of time spent on phone call Yoseph Fall MD The documentation for this note was completed by Sanjana Baca MA acting as scribe for Yoseph Fall MD. April 07, 2024 8:48 AM. Sanjana Baca MA documented in this encounter [facility] 04-07-2024 Note HNO ID: [id number] Author: YOSEPH FALL MD Service: ? Author Type: Physician Type: Progress Notes Filed: 04/07/2024 08:58 Note Text: Chief Complaint Patient presents with: F/U 3 Month HPI:This Team Access Model visit is a virtual encounter. It required patient-provider interaction for the medical decision making as documented below. Patient was offered a virtual/telemedicine appointment in lieu of an office visit due to recommendations to reduce patient exposure to COVID-19. Patient is aware of limitations of performing the visit without a face to face visit in the office setting and agrees. Pt completing a tele-health visit today for her routine follow up. I have communicated my name and active licensure. The patient's identity and physical location were verified at the time of this visit. Either the patient or their legal patient relations representative has been informed of the risks and benefits of -- and alternatives to -- treatment through a remote evaluation and consents to proceed with the evaluation remotely. 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 Notes increased usage due to stress. Dog recently , grand daughter in hospital. GI/Uro - Denies any stomach, bowel or urinary issues. GERD - Symptoms stable with use of Prilosec 20 mg once daily. Pain - Chronic back pain that is currently being treated with [place] 5-325 mg 1 tab po bid prn. Pt is currently in the process of being weaned down off medication, getting #30 tabs/month. Also taking Tylenol prn and Flexeril 10 mg 1 tab po bid as needed. Reports that Kiana came to her home, visit every 3 months and told her to receive a referral from PCP for Pain Mgmt through Hospice. They will come to her home and treat her. GERRY/Depression - Continues to still have occasional bad days, with increased anxiety and anxiety attacks. Prefers to stay home. Notes some increased stress due to putting down her beagle of 14 years. Also notes granddaughter in [facility]. Trying to learn to live her anxiety and depression. On current regimen of Zoloft 100 mg 2 tabs daily and Requip 0.25 mg once daily. HTN - Monitoring blood pressure at home, reports it's been doing good. BP check at home today was 141/76. Denies any chest pain, dizziness or increased or changes in shortness of breath. On current regimen of Verapamil 240 mg once daily and Losartan 50 mg 0.5 tab as needed if BP is over 150/90. COPD - Breathing overall stable but states it's so-so. Using Prednisone 10 mg 1.5 tab once every other day, Singulair 10 mg daily, Albuterol Inhaler prn, Advair 500-50 mg 1 puff bid and Spiriva 18 mcg 1 caps daily. Pt on continuous O2 at 2.5-3 L and uses Nebulizer prn. Does note she did get a bloody nose last night felt it was related to her her O2 use. Past medical history, appointments, medications, allergies reviewed. Previous Medical History PAST MEDICAL HISTORY Diagnosis Date Closed fracture of unspecified part of humerus Arm fracture Dysthymic disorder Depression (non-psychotic) Essential hypertension, benign 04/26/2006 Generalized anxiety disorder Anxiety, Generalized Generalized osteoarthrosis, involving multiple sites Osteoarthritis - renee. hands, knees Malignant neoplasm of bronchus and lung, unspecified site (HCC) 04/26/2003 Lung cancer OR (myocardial infarction) (HCC) 10-10 taken to [facility] heart stopped Obstructive chronic bronchitis with exacerbation (HCC) COPD Other abnormal Papanicolaou smear of cervix and cervical HPV(795.09) 04/26/2002 h/o abnormal paps, had colposcopy vs. cone, hasn't had any paps since dx of lung CA, but her last pap 4+ yrs ago was abnormal per pt Other and unspecified alcohol dependence, unspecified drinking behavior ETOH depend. syn. PMH - PAST MEDICAL HISTORY OF FX right foot Previous Surgical History PAST SURGICAL HISTORY Procedure Laterality Date CONIZATION CERVIX W/WO DANDC RPR ELTRD EXC 2003 Dr. Danis BRYSON ERCP 06/22/2016 choledocholithiasis, cholangitis LAPS SURG CHOLECYSTECTOMY W/CHOLANGIOGRAPHY 08/06/2016 PAST SURGICAL HISTORY OF 1987 polyp removed from throat PAST SURGICAL HISTORY OF 1990 ectopic - took tube PAST SURGICAL HISTORY OF 1990 exploratory abd lap -? may have had ovary removed - pt told she cannot have children anymore PICC LINE INSERT/CONSULT 06/26/2016 PULMONARY FUNCTION TEST 08/14/04 [facility] LUNG OTHER THAN PNEUMONECTOMY 1 LOBE LOBECT 04/22/2004 right upper lobectomy Family History FAMILY HISTORY Problem Relation Age of Onset Cancer Mother : Throat, UTERINE Hypertension Mother Cancer Father Stomach CA Heart Father AAA Hypertension Father Heart Paternal Grandmother Breast Cancer Paternal Grandmother Heart Paternal Grandfather Patient Allergies ALLERGIES No Known Allergies Current Medications Current Outpatient Medications on File Prior to Visit (more content not included)... [facility] 03-22-2024 Telephone encounter Note left message to notify patient that med has been sent into pharmacy. Vickie Niño LPN [facility] 03-22-2024 Miscellaneous Notes left message to notify patient that med has been sent into pharmacy. Vickie Niño LPN The following approved medication requests have been transmitted electronically. Requested Prescriptions Signed Prescriptions Disp Refills amoxicillin (AMOXIL) 875 mg tablet 20 tablet 0 Sig: Take 1 tablet by mouth two times a day for 10 days. Authorizing Provider: IMAN PERSON APRN.CNP Patient's significant other Mike calls and states that patient does not leave house. Mike reports that patient has a gum infection and that patient needs antibiotic for this gum infection. Mike reports that patient cannot come into appointment because she does not leave house. Mike asking if an antibiotic can be sent to pharmacy for gum infection? Please review and advise, Judy Bliss RN documented in this encounter [facility] 03-22-2024 Telephone encounter Note The following approved medication requests have been transmitted electronically. Requested Prescriptions Signed Prescriptions Disp Refills amoxicillin (AMOXIL) 875 mg tablet 20 tablet 0 Sig: Take 1 tablet by mouth two times a day for 10 days. Authorizing Provider: IMAN PERSON APRN.CNP [facility] 03-21-2024 Telephone encounter Note Patient's significant other Mike calls and states that patient does not leave house. Mike reports that patient has a gum infection and that patient needs antibiotic for this gum infection. Mike reports that patient cannot come into appointment because she does not leave house. Mike asking if an antibiotic can be sent to pharmacy for gum infection? Please review and advise, Judy Bliss RN [facility] 03-20-2024 Telephone encounter Note Continue weaning off. Now down to 30 tablets. PDMP website checked and validated. All prescriptions have been APPROPRIATELY filled. No suspicious activity was identified. 03/20/2024 by Nelson Robert APRN.CNP The following approved medication requests have been transmitted electronically. Requested Prescriptions Signed Prescriptions Disp Refills HYDROcodone-acetaminophen (NORCO) 5-325 mg per tablet 30 tablet 0 Sig: Take 1 tablet by mouth two times a day as needed for pain for up to 30 days. Authorizing Provider: NELSON ROBERT APRN.CNP [facility] 03-20-2024 Miscellaneous Notes Continue weaning off. Now down to 30 tablets. PDMP website checked and validated. All prescriptions have been APPROPRIATELY filled. No suspicious activity was identified. 03/20/2024 by Nelson Robert APRN.CNP The following approved medication requests have been transmitted electronically. Requested Prescriptions Signed Prescriptions Disp Refills HYDROcodone-acetaminophen (NORCO) 5-325 mg per tablet 30 tablet 0 Sig: Take 1 tablet by mouth two times a day as needed for pain for up to 30 days. Authorizing Provider: NELSON ROBERT APRN.CNP The patient has been identified by name and date of : Yes Caregiver verified no other encounters exist for this prescription request: Yes Caregiver confirmed with patient/requestor that no other refills are due, in the near future, with this provider at this time: Yes The last office visit in the department: 02/19/2023 Does the patient have a future office visit with this provider/department: 04/07/2024 Requested Prescriptions Pending Prescriptions Disp Refills HYDROcodone-acetaminophen (NORCO) 5-325 mg per tablet 32 tablet 0 Sig: Take 1 tablet by mouth two times a day as needed for pain for up to 30 days. Sukhi Marrero RN March 20, 2024 12:49 PM documented in this encounter [facility] 03-20-2024 Telephone encounter Note The patient has been identified by name and date of : Yes Caregiver verified no other encounters exist for this prescription request: Yes Caregiver confirmed with patient/requestor that no other refills are due, in the near future, with this provider at this time: Yes The last office visit in the department: 02/19/2023 Does the patient have a future office visit with this provider/department: 04/07/2024 Requested Prescriptions Pending Prescriptions Disp Refills HYDROcodone-acetaminophen (NORCO) 5-325 mg per tablet 32 tablet 0 Sig: Take 1 tablet by mouth two times a day as needed for pain for up to 30 days. Sukhi Marrero RN March 20, 2024 12:49 PM [facility] 03-03-2024 Telephone encounter Note The following approved medication requests have been transmitted electronically. Requested Prescriptions Pending Prescriptions Disp Refills predniSONE (DELTASONE) 10 mg tablet 30 tablet 5 Sig: Take 1.5 tablets by mouth every other day. Nelson Robert APRN.CNP [facility] 03-03-2024 Miscellaneous Notes The following approved medication requests have been transmitted electronically. Requested Prescriptions Pending Prescriptions Disp Refills predniSONE (DELTASONE) 10 mg tablet 30 tablet 5 Sig: Take 1.5 tablets by mouth every other day. Nelson Robert APRN.CNP The patient has been identified by name and date of : Yes Caregiver verified no other encounters exist for this prescription request: Yes Caregiver confirmed with patient/requestor that no other refills are due, in the near future, with this provider at this time: Yes The last office visit in the department: 11/29/2023- [facility] Does the patient have a future office visit with this provider/department: No Visit date not found Requested Prescriptions Pending Prescriptions Disp Refills predniSONE (DELTASONE) 10 mg tablet 30 tablet 5 Sig: Take 1.5 tablets by mouth every other day. Judy Bliss RN March 03, 2024 11:23 AM documented in this encounter [facility] 03-03-2024 Telephone encounter Note The patient has been identified by name and date of : Yes Caregiver verified no other encounters exist for this prescription request: Yes Caregiver confirmed with patient/requestor that no other refills are due, in the near future, with this provider at this time: Yes The last office visit in the department: 11/29/2023- [facility] Does the patient have a future office visit with this provider/department: No Visit date not found Requested Prescriptions Pending Prescriptions Disp Refills predniSONE (DELTASONE) 10 mg tablet 30 tablet 5 Sig: Take 1.5 tablets by mouth every other day. Judy Bliss RN March 03, 2024 11:23 AM [facility] 02-14-2024 Telephone encounter Note Approved. PDMP website checked and validated. All prescriptions have been APPROPRIATELY filled. No suspicious activity was identified. 02/14/2024 by Nelson Robert APRN.CNP The following approved medication requests have been transmitted electronically. Requested Prescriptions Signed Prescriptions Disp Refills HYDROcodone-acetaminophen (NORCO) 5-325 mg per tablet 32 tablet 0 Sig: Take 1 tablet by mouth two times a day as needed for pain for up to 30 days. Authorizing Provider: NELSON ROBERT albuterol HFA (VENTOLIN HFA) 90 mcg/actuation inhaler 6.7 g 11 Sig: Inhale 2 Puffs as instructed every 4 hours as needed. Authorizing Provider: NELSON ROBERT ipratropium-albuterol (DUONEB) 0.5 mg-3 mg(2.5 mg base)/3 mL nebu 360 mL 2 Sig: inhale 1 ampule via nebulizer every 4 hours if needed for wheezing. Use over 5 to 15 minutes Authorizing Provider: NESLON ROBERT APRN.CNP [facility] 02-14-2024 Miscellaneous Notes Approved. PDMP website checked and validated. All prescriptions have been APPROPRIATELY filled. No suspicious activity was identified. 02/14/2024 by Nelson Robert APRN.CNP The following approved medication requests have been transmitted electronically. Requested Prescriptions Signed Prescriptions Disp Refills HYDROcodone-acetaminophen (NORCO) 5-325 mg per tablet 32 tablet 0 Sig: Take 1 tablet by mouth two times a day as needed for pain for up to 30 days. Authorizing Provider: NELSON ROBERT albuterol HFA (VENTOLIN HFA) 90 mcg/actuation inhaler 6.7 g 11 Sig: Inhale 2 Puffs as instructed every 4 hours as needed. Authorizing Provider: NELSON ROBERT ipratropium-albuterol (DUONEB) 0.5 mg-3 mg(2.5 mg base)/3 mL nebu 360 mL 2 Sig: inhale 1 ampule via nebulizer every 4 hours if needed for wheezing. Use over 5 to 15 minutes Authorizing Provider: NELSON ROBERT APRN.CNP The patient has been identified by name and date of : Yes Caregiver verified no other encounters exist for this prescription request: Yes Caregiver confirmed with patient/requestor that no other refills are due, in the near future, with this provider at this time: Yes The last office visit in the department: 02/19/2023 Does the patient have a future office visit with this provider/department: no no future appt scheduled Requested Prescriptions Pending Prescriptions Disp Refills HYDROcodone-acetaminophen (NORCO) 5-325 mg per tablet 32 tablet 0 Sig: Take 1 tablet by mouth two times a day as needed for pain for up to 30 days. albuterol HFA (VENTOLIN HFA) 90 mcg/actuation inhaler 6.7 g 11 Sig: Inhale 2 Puffs as instructed every 4 hours as needed. ipratropium-albuterol (DUONEB) 0.5 mg-3 mg(2.5 mg base)/3 mL nebu 360 mL 2 Sig: inhale 1 ampule via nebulizer every 4 hours if needed for wheezing. Use over 5 to 15 minutes daughter said call mother to schedule appt with her. Brynn Watson LPN February 14, 2024 11:28 AM documented in this encounter [facility] 02-14-2024 Telephone encounter Note The patient has been identified by name and date of : Yes Caregiver verified no other encounters exist for this prescription request: Yes Caregiver confirmed with patient/requestor that no other refills are due, in the near future, with this provider at this time: Yes The last office visit in the department: 02/19/2023 Does the patient have a future office visit with this provider/department: no no future appt scheduled Requested Prescriptions Pending Prescriptions Disp Refills HYDROcodone-acetaminophen (NORCO) 5-325 mg per tablet 32 tablet 0 Sig: Take 1 tablet by mouth two times a day as needed for pain for up to 30 days. albuterol HFA (VENTOLIN HFA) 90 mcg/actuation inhaler 6.7 g 11 Sig: Inhale 2 Puffs as instructed every 4 hours as needed. ipratropium-albuterol (DUONEB) 0.5 mg-3 mg(2.5 mg base)/3 mL nebu 360 mL 2 Sig: inhale 1 ampule via nebulizer every 4 hours if needed for wheezing. Use over 5 to 15 minutes daughter said call mother to schedule appt with her. Brynn Watson LPN February 14, 2024 11:28 AM [facility] 02-04-2024 Telephone encounter Note Pt informed, verbalized understanding. Lauren Duarte MA [facility] 02-04-2024 Miscellaneous Notes Pt informed, verbalized understanding. Lauren Duarte MA OK for amoxicillin as ordered. If she does not improve over the weekend she would need to be seen. Yoseph Fall MD Patient's significant other calls and states that he thinks she has a gum infection. Left side bottom of the face. Daughter and Patient had called previously and said that patient has had a toothache x 1 week. Patient and daughter was advised by previous triage nurse that patient needs to be seen in office for evaluation. Significant other calling again to see if provider can send in antibiotic. Please review and advise, Judy Bliss RN documented in this encounter [facility] 02-04-2024 Telephone encounter Note OK for amoxicillin as ordered. If she does not improve over the weekend she would need to be seen. Yoseph Fall MD [facility] 02-03-2024 Telephone encounter Note Patient's significant other calls and states that he thinks she has a gum infection. Left side bottom of the face. Daughter and Patient had called previously and said that patient has had a toothache x 1 week. Patient and daughter was advised by previous triage nurse that patient needs to be seen in office for evaluation. Significant other calling again to see if provider can send in antibiotic. Please review and advise, Judy Bliss RN [facility] 02-03-2024 Telephone encounter Note Daughter reports patient has had a toothache for 1 week, and asking if pcp could prescribe an AB until she sees a dentist. Does not know when patient will see a dentist at this time. Patient is on the line with daughter. Advised patient would need an appt in order for provider to prescribe medication. Advised pcp does not have opening today and patient could go to [facility] for evaluation. Patient and daughter agreeable. [facility] 02-03-2024 Miscellaneous Notes Daughter reports patient has had a toothache for 1 week, and asking if pcp could prescribe an AB until she sees a dentist. Does not know when patient will see a dentist at this time. Patient is on the line with daughter. Advised patient would need an appt in order for provider to prescribe medication. Advised pcp does not have opening today and patient could go to [facility] for evaluation. Patient and daughter agreeable. documented in this encounter [facility] 01-18-2024 Telephone encounter Note Approved PDMP website checked and validated. All prescriptions have been APPROPRIATELY filled. No suspicious activity was identified. 01/18/2024 by Nelson Robert APRN.CNP The following approved medication requests have been transmitted electronically. Requested Prescriptions Signed Prescriptions Disp Refills HYDROcodone-acetaminophen (NORCO) 5-325 mg per tablet 32 tablet 0 Sig: Take 1 tablet by mouth two times a day as needed for pain for up to 30 days. Authorizing Provider: NELSON ROBERT APRN.CNP [facility] 01-18-2024 Miscellaneous Notes Approved PDMP website checked and validated. All prescriptions have been APPROPRIATELY filled. No suspicious activity was identified. 01/18/2024 by Nelson Robert APRN.CNP The following approved medication requests have been transmitted electronically. Requested Prescriptions Signed Prescriptions Disp Refills HYDROcodone-acetaminophen (NORCO) 5-325 mg per tablet 32 tablet 0 Sig: Take 1 tablet by mouth two times a day as needed for pain for up to 30 days. Authorizing Provider: NELSON ROBERT APRN.[employer] The patient has been identified by name and date of : Yes Caregiver verified no other encounters exist for this prescription request: Yes Caregiver confirmed with patient/requestor that no other refills are due, in the near future, with this provider at this time: Yes The last office visit in the department: 11/29/2023 OV 02/19/2023 Does the patient have a future office visit with this provider/department: No Requested Prescriptions Pending Prescriptions Disp Refills HYDROcodone-acetaminophen (NORCO) 5-325 mg per tablet 32 tablet 0 Sig: Take 1 tablet by mouth two times a day as needed for pain for up to 30 days. Sukhi Marrero RN January 18, 2024 9:25 AM documented in this encounter [facility] 01-18-2024 Telephone encounter Note The patient has been identified by name and date of : Yes Caregiver verified no other encounters exist for this prescription request: Yes Caregiver confirmed with patient/requestor that no other refills are due, in the near future, with this provider at this time: Yes The last office visit in the department: 11/29/2023 OV 02/19/2023 Does the patient have a future office visit with this provider/department: No Requested Prescriptions Pending Prescriptions Disp Refills HYDROcodone-acetaminophen (NORCO) 5-325 mg per tablet 32 tablet 0 Sig: Take 1 tablet by mouth two times a day as needed for pain for up to 30 days. Sukhi Marrero RN January 18, 2024 9:25 AM [facility] 12-24-2023 Telephone encounter Note OK to refill as ordered Yoseph Fall MD [facility] 12-24-2023 Miscellaneous Notes OK to refill as ordered Yoseph Fall MD Prescription Refill Information The patient has been identified by name and date of : Yes Caregiver verified no other encounters exist for this prescription request: Yes Caregiver confirmed with patient/requestor that no other refills are due, in the near future, with this provider at this time: Yes The last office visit in the department: 11/29/23 Does the patient have a future office visit with this provider/department: Yes Requested Prescriptions Pending Prescriptions Disp Refills fluticasone-salmeterol (ADVAIR DISKUS) 500-50 mcg/dose dsdv 3 Each 3 Sig: Inhale 1 Puff as instructed two times a day. Rinse and gargle mouth with water after use. Giovanna Carrillo December 24, 2023 9:26 AM documented in this encounter [facility] 12-24-2023 Telephone encounter Note Prescription Refill Information The patient has been identified by name and date of : Yes Caregiver verified no other encounters exist for this prescription request: Yes Caregiver confirmed with patient/requestor that no other refills are due, in the near future, with this provider at this time: Yes The last office visit in the department: 11/29/23 Does the patient have a future office visit with this provider/department: Yes Requested Prescriptions Pending Prescriptions Disp Refills fluticasone-salmeterol (ADVAIR DISKUS) 500-50 mcg/dose dsdv 3 Each 3 Sig: Inhale 1 Puff as instructed two times a day. Rinse and gargle mouth with water after use. Giovnana Carrillo December 24, 2023 9:26 AM [facility] Work Phone: 11-29-2023 History of Presen t illness Narrative Chief Complaint No chief complaint on file. HPI: This Team Access Model visit is a virtual/phone encounter. It required patient-provider interaction for the medical decision making as documented below. Patient was offered a virtual/telemedicine appointment in lieu of an office visit due to recommendations to reduce patient exposure to COVID-19. Patient is aware of limitations of performing the visit without a face to face visit in the office setting and agrees. I have communicated my name and active licensure. The patient's identity and physical location were verified at the time of this visit. Either the patient or their legal patient relations representative has been informed of the risks and benefits of -- and alternatives to -- treatment through a remote evaluation and consents to proceed with the evaluation remotely. 3 month follow up. Has slowed down on smoking. Goes 3-4 days without, then smokes a couple cigarettes for a few days then starts over again. Has lozenges and patches to use. No bowel, Gi, or urinary issues. GERD: Sx stable on Prilosec 20 mg daily. COPD: Reports breathing overall stable, has good and bad days. Notes this hot weather is not making breathing easy. Using Prednisone once every other day. Follows with Dr. Ramirez Frank. On Singulair 10 mg daily, Albuterol inhaler prn, Prednisone 105 mg every other day, Advair BID and Spiriva once daily. On 2.5-3 L oxygen. Uses Nebulizer prn. Pain: Chronic pain; is being weaned off [place] 5-325 mg down to#32/month, taking 1 pill BID prn. Also uses Flexeril 10 mg BID prn. Worried pain will not be controlled on anything less than 2 norco per day. At times pain gets bad, having to use Tylenol. Wishes her [place] would be increased. GERRY/Depression: Stable, still has occ bad days where she has anxiety attacks. Notes anxiety overall doing so-so. November is a rough month for her. Trying to learn to live with them. Notes rough two weeks, having friends pass away recently. Taking Zoloft 100 mg 2 pills daily, requip 0.25 mg daily. HTN: Checking BP at home, reports has been doing good. BP checked today at home 117/68. Pulse 110. Temp 98.8. No chest pains, dizziness, or SOB. Taking Verapamil 240 mg daily and Losartan 50 mg half pill as needed when BP over 150/90. Past medical history, appointments, medications, allergies reviewed. Previous Medical History PAST MEDICAL HISTORY Diagnosis Date Closed fracture of unspecified part of humerus Arm fracture Dysthymic disorder Depression (non-psychotic) Essential hypertension, benign 04/26/2006 Generalized anxiety disorder Anxiety, Generalized Generalized osteoarthrosis, involving multiple sites Osteoarthritis - renee. hands, knees Malignant neoplasm of bronchus and lung, unspecified site (HCC) 04/26/2003 Lung cancer OR (myocardial infarction) (HCC) 10-10 taken to [facility] heart stopped Obstructive chronic bronchitis with exacerbation (HCC) COPD Other abnormal Papanicolaou smear of cervix and cervical HPV(795.09) 04/26/2002 h/o abnormal paps, had colposcopy vs. cone, hasn't had any paps since dx of lung CA, but her last pap 4+ yrs ago was abnormal per pt Other and unspecified alcohol dependence, unspecified drinking behavior ETOH depend. syn. PMH - PAST MEDICAL HISTORY OF FX right foot Previous Surgical History PAST SURGICAL HISTORY Procedure Laterality Date CONIZATION CERVIX W/WO D&C RPR ELTRD EXC 2003 Dr. Danis BRYSON ERCP 06/22/2016 choledocholithiasis, cholangitis LAPS SURG CHOLECYSTECTOMY W/CHOLANGIOGRAPHY 08/06/2016 PAST SURGICAL HISTORY OF 1987 polyp removed from throat PAST SURGICAL HISTORY OF 1990 ectopic - took tube PAST SURGICAL HISTORY OF 1990 exploratory abd lap -? may have had ovary removed - pt told she cannot have children anymore PICC LINE INSERT/CONSULT 06/26/2016 PULMONARY FUNCTION TEST 08/14/04 RMVL LUNG OTHER THAN PNEUMONECTOMY 1 LOBE LOBECT 04/22/2004 right upper lobectomy Family History FAMILY HISTORY Problem Relation Age of Onset Cancer Mother : Throat, UTERINE Hypertension Mother Cancer Father Stomach CA Heart Father AAA Hypertension Father Heart Paternal Grandmother Breast Cancer Paternal Grandmother Heart Paternal Grandfather Patient Allergies ALLERGIES No Known Allergies Current Medications Current Outpatient Medications on File Prior to Visit Medication Sig cyclobenzaprine (FLEXERIL) 10 mg tablet Take 1 tablet by mouth two times a day as needed for muscle spasm. HYDROcodone-acetaminophen (NORCO) 5-325 mg per tablet Take 1 tablet by mouth two times a day as needed for pain for up to 30 days. nicotine (NICODERM) 7 mg/24 hr Apply 1 Patch as directed every 24 hours. rOPINIRole (REQUIP) 0.25 mg tablet Take 1 tablet by mouth daily at bedtime. tiZANidine (ZANAFLEX) 4 mg tablet Take 1 tablet by mouth every 8 hours as needed (muscle spasms). ipratropium-albuterol (DUONEB) 0.5 mg-3 mg(2.5 mg base)/3 mL nebu inhale 1 ampule via nebulizer every 4 hours if needed for wheezing. Use over 5 to 15 minutes fluticasone (FLONASE) 50 mcg/actuation nasal spray use 2 sprays in each nostril daily. Rinse mouth after use sertraline (ZOLOFT) 100 mg tablet Take 2 tablets by mouth once daily. montelukast (SINGULAIR) 10 mg tablet ONE -TWO TABS Q 4HOURS PRN verapamil SR (CALAN SR) 240 mg CR tablet Take 1 tablet by mouth daily at bedtime. Cholecalciferol, Vitamin D3, 50 mcg (2,000 unit) cap Take 1 capsule by mouth once daily. nystatin (MYCOSTATIN) 100,000 unit/mL suspension Take 5 mL by mouth four times daily. 1tsp swish in mouth for several minutes, then swallow (or expectorate) 4 times daily until gone. omeprazole (PRILOSEC) 20 mg capsule Take 1 capsule by mouth once daily. ON AN EMPTY STOMACH tiotropium (SPIRIVA) 18 mcg inhalation capsule Inhale 1 capsule as instructed once daily. Nicotine Polacrilex [address] 1 Lozenge between cheek and gum as needed. predniSONE (DELTASONE) 10 mg tablet Take 1.5 tablets by mouth every other day. fluticasone-salmeterol (ADVAIR DISKUS) 500-50 mcg/dose dsdv Inhale 1 Puff as instructed two times a day. Rinse and gargle mouth with water after use. albuterol HFA (VENTOLIN HFA) 90 mcg/actuation inhaler Inhale 2 Puffs as instructed every 4 hours as needed. Nebulizer and Compressor For Neb Use as directed. Dx: COPD J44.9 Nebulizer Accessories misc Mask and supplies as needed PULSE OXIMETER [facility] Use as directed to check oxygen saturation level ammonium lactate (AMLACTIN) 12 % lotion Apply 1 application to affected area as needed for Dry Skin. losartan (COZAAR) 50 mg tablet Take 0.5 tablets by mouth once daily. OXYGEN, HOME THERAPY, 2.5 L/min by Nasal Cannula route continuous. Use as directred Disposable Gloves (DISPOSABLE LATEX-FREE GLOVES) [facility] 1 Box once every month. ICD 10: M15.9, J44.9, M54.40 Incontinence Pad, Liner, Disp (POISE PADS) pads Use pads as directed. Dx: N39.46 COMPOUNDED PRESCRIPTION BLOOD PRESSURE CUFF FOR HOME USE. DX: HYPERTENSION I10. AUTOMATIC CUFF. COMPOUNDED PRESCRIPTION Blood pressure monitor for home use. Dx: I10 OXYGEN-AIR DELIVERY SYSTEMS DEVICE as necessary No current facility-administered medications on file prior to visit. Social History Social History Tobacco Use Smoking status: Every Day Packs/day: 1.00 Years: 42.00 Additional pack years: 0.00 Total pack years: 42.00 Types: Cigarettes Start date: 1969 Smokeless tobacco: Never Vaping Use Vaping Use: Never used Substance Use Topics Alcohol use: Yes Comment: Nothing since 03/2012. Drug use: No EXAM: LMP 02/27/2005 Health Maintenance List BP Controlled (<130/80) Never done Alpha-1 Antitrypsin Deficiency Screening Never done Shingrix Vaccine(1 of 2) Never done RSV Vaccine(1 - 1-dose 60+ series) Never done Cervical Cancer Screening due on 10/24/2015 Mammogram Screening due on 10/16/2016 Bone Density Screening due on 2020 Covid-19 Vaccine( season) due on 12/25/2022 Advance Directive Discussion due on 04/26/2023 DTaP,Tdap,Td Vaccine(2 - Td or Tdap) due on 10/25/2023 Colorectal Cancer Screening due on 01/25/2024 Influenza Vaccine(1) due on 12/26/2023 Annual PCP Team Chronic Disease Visit due on 08/22/2024 Diabetes Screening due on 02/19/2026 Lipid Screening due on 02/20/2028 Spirometry Completed Hepatitis C Screening Completed Pneumococcal Vaccine: 65+ Completed Data reviewed none ASSESSMENT/PLAN: 1. Stage 3 severe COPD by GOLD classification (HCC) - ICD9: 496, ICD10: J44.9 (primary diagnosis) Continue current medications. Stop smoking 2. Generalized osteoarthrosis, involving multiple sites - ICD9: 715.09, ICD10: M15.9 - CYCLOBENZAPRINE 10 MG TABLET 3. Chronic low back pain with sciatica, sciatica laterality unspecified, unspecified back pain laterality - ICD9: 724.2, 724.3, 338.29, ICD10: M54.40, G89.29 Continue current medications. - HYDROCODONE 5 MG-ACETAMINOPHEN 325 MG TABLET 4. Essential hypertension, benign - ICD9: 401.1, ICD10: I10 - Controlled - Continue current medications - Recommend home blood pressure monitoring, to bring results to next visit - Encouraged sodium restriction, DASH or Mediterranean diet - Recommend regular aerobic exercise 5. Tobacco use disorder - ICD9: 305.1, ICD10: F17.200 - Cessation encouraged. - Physiologic and physical aspects of tobacco addiction as well as strategies for quitting were discussed. - Counseling was given focusing on the harmful effects of this addiction especially given the patient's medical condition(s) which will be worsened because of the chemicals in tobacco. 6. Dysthymic disorder - ICD9: 300.4, ICD10: F34.1 Continue current medications. Follow up in 3 months in office if possible 11-20 minutes of time spent on phone call Yoseph Fall MD documented in this encounter [facility] 11-29-2023 Note HNO ID: [id number] Author: YOSEPH FALL MD Service: ? Author Type: Physician Type: Progress Notes Filed: 11/29/2023 17:58 Note Text: Chief Complaint No chief complaint on file. HPI: This Team Access Model visit is a virtual/phone encounter. It required patient-provider interaction for the medical decision making as documented below. Patient was offered a virtual/telemedicine appointment in lieu of an office visit due to recommendations to reduce patient exposure to COVID-19. Patient is aware of limitations of performing the visit without a face to face visit in the office setting and agrees. I have communicated my name and active licensure. The patient's identity and physical location were verified at the time of this visit. Either the patient or their legal patient relations representative has been informed of the risks and benefits of -- and alternatives to -- treatment through a remote evaluation and consents to proceed with the evaluation remotely. 3 month follow up. Has slowed down on smoking. Goes 3-4 days without, then smokes a couple cigarettes for a few days then starts over again. Has lozenges and patches to use. No bowel, Gi, or urinary issues. GERD: Sx stable on Prilosec 20 mg daily. COPD: Reports breathing overall stable, has good and bad days. Notes this hot weather is not making breathing easy. Using Prednisone once every other day. Follows with Dr. Ramirez Frank. On Singulair 10 mg daily, Albuterol inhaler prn, Prednisone 105 mg every other day, Advair BID and Spiriva once daily. On 2.5-3 L oxygen. Uses Nebulizer prn. Pain: Chronic pain; is being weaned off [place] 5-325 mg down to#32/month, taking 1 pill BID prn. Also uses Flexeril 10 mg BID prn. Worried pain will not be controlled on anything less than 2 norco per day. At times pain gets bad, having to use Tylenol. Wishes her [place] would be increased. GERRY/Depression: Stable, still has occ bad days where she has anxiety attacks. Notes anxiety overall doing so-so. November is a rough month for her. Trying to learn to live with them. Notes rough two weeks, having friends pass away recently. Taking Zoloft 100 mg 2 pills daily, requip 0.25 mg daily. HTN: Checking BP at home, reports has been doing good. BP checked today at home 117/68. Pulse 110. Temp 98.8. No chest pains, dizziness, or SOB. Taking Verapamil 240 mg daily and Losartan 50 mg half pill as needed when BP over 150/90. Past medical history, appointments, medications, allergies reviewed. Previous Medical History PAST MEDICAL HISTORY Diagnosis Date Closed fracture of unspecified part of humerus Arm fracture Dysthymic disorder Depression (non-psychotic) Essential hypertension, benign 04/26/2006 Generalized anxiety disorder Anxiety, Generalized Generalized osteoarthrosis, involving multiple sites Osteoarthritis - renee. hands, knees Malignant neoplasm of bronchus and lung, unspecified site (HCC) 04/26/2003 Lung cancer OR (myocardial infarction) (HCC) 10-10 taken to [facility] heart stopped Obstructive chronic bronchitis with exacerbation (HCC) COPD Other abnormal Papanicolaou smear of cervix and cervical HPV(795.09) 04/26/2002 h/o abnormal paps, had colposcopy vs. cone, hasn't had any paps since dx of lung CA, but her last pap 4+ yrs ago was abnormal per pt Other and unspecified alcohol dependence, unspecified drinking behavior ETOH depend. syn. PMH - PAST MEDICAL HISTORY OF FX right foot Previous Surgical History PAST SURGICAL HISTORY Procedure Laterality Date CONIZATION CERVIX W/WO DANDC RPR ELTRD EXC 2003 Dr. Danis BRYSON ERCP 06/22/2016 choledocholithiasis, cholangitis LAPS SURG CHOLECYSTECTOMY W/CHOLANGIOGRAPHY 08/06/2016 PAST SURGICAL HISTORY OF 1987 polyp removed from throat PAST SURGICAL HISTORY OF 1990 ectopic - took tube PAST SURGICAL HISTORY OF 1990 exploratory abd lap -? may have had ovary removed - pt told she cannot have children anymore PICC LINE INSERT/CONSULT 06/26/2016 PULMONARY FUNCTION TEST 08/14/04 RMVL LUNG OTHER THAN PNEUMONECTOMY 1 LOBE LOBECT 04/22/2004 right upper lobectomy Family History FAMILY HISTORY Problem Relation Age of Onset Cancer Mother : Throat, UTERINE Hypertension Mother Cancer Father Stomach CA Heart Father AAA Hypertension Father Heart Paternal Grandmother Breast Cancer Paternal Grandmother Heart Paternal Grandfather Patient Allergies ALLERGIES No Known Allergies Current Medications Current Outpatient Medications on File Prior to Visit Medication Sig cyclobenzaprine (FLEXERIL) 10 mg tablet Take 1 tablet by mouth two times a day as needed for muscle spasm. HYDROcodone-acetaminophen (NORCO) 5-325 mg per tablet Take 1 tablet by mouth two times a day as needed for pain for up to 30 days. nicotine (NICODERM) 7 mg/24 hr Apply 1 Patch as directed every 24 hours. rOPINIRole (REQUIP) 0.25 mg tablet Take 1 tablet by mouth daily at bedtime. t (more content not included)... [facility] 11-16-2023 Telephone encounter Note OK to refill as ordered Yoseph Fall MD [facility] 11-16-2023 Miscellaneous Notes OK to refill as ordered Yoseph Fall MD The patient has been identified by name and date of : Yes Caregiver verified no other encounters exist for this prescription request: Yes Caregiver confirmed with patient/requestor that no other refills are due, in the near future, with this provider at this time: Yes The last office visit in the department: 02/19/2023 DH: 08/23/2023 Does the patient have a future office visit with this provider/department: 11/29/2023 Requested Prescriptions Pending Prescriptions Disp Refills HYDROcodone-acetaminophen (NORCO) 5-325 mg per tablet 32 tablet 0 Sig: Take 1 tablet by mouth two times a day as needed for pain for up to 30 days. Sukhi Marrero RN November 16, 2023 12:02 PM documented in this encounter [facility] 11-16-2023 Telephone encounter Note The patient has been identified by name and date of : Yes Caregiver verified no other encounters exist for this prescription request: Yes Caregiver confirmed with patient/requestor that no other refills are due, in the near future, with this provider at this time: Yes The last office visit in the department: 02/19/2023 DH: 08/23/2023 Does the patient have a future office visit with this provider/department: 11/29/2023 Requested Prescriptions Pending Prescriptions Disp Refills HYDROcodone-acetaminophen (NORCO) 5-325 mg per tablet 32 tablet 0 Sig: Take 1 tablet by mouth two times a day as needed for pain for up to 30 days. Sukhi Marrero RN November 16, 2023 12:02 PM [facility] 11-08-2023 Telephone encounter Note The office rec'd and completed an electronic PA for cyclobenzapine. This was denied. Why did we deny your request? We denied this request under Medicare Part D because: The information received from your physician does not support approval of this drug under your Medicare Part D benefit because the Food and Drug Administration (FDA) has not approved the use of the requested medication for the diagnosis provided and/or use of the requested medication for the diagnosis provided is not listed in any of the clinical resources approved by the Centers for Medicare and Medicaid Services (CMS) for use in evaluating Part D coverage. Your plan's formulary has a restriction on this drug. This restriction has been approved by CMS. This restriction only applies to patients greater than or equal to 65 years of age. Coverage is provided when the diagnosis provided by your prescriber is considered a Medicare Part D use of the medication and your physician confirms they have weighed the safety versus benefit of this medication. Examples of common Medicare Part D covered uses are treatment of acute musculoskeletal conditions or acute muscle spasms. We based this decision on the coverage criteria for: [address] [place] Standard MEDD Prior Authorization Policy - HIGH RISK MEDICATIONS - CYCLOBENZAPRINE [facility] 11-08-2023 Miscellaneous Notes The office rec'd and completed an electronic PA for cyclobenzapine. This was denied. Why did we deny your request? We denied this request under Medicare Part D because: The information received from your physician does not support approval of this drug under your Medicare Part D benefit because the Food and Drug Administration (FDA) has not approved the use of the requested medication for the diagnosis provided and/or use of the requested medication for the diagnosis provided is not listed in any of the clinical resources approved by the Centers for Medicare and Medicaid Services (CMS) for use in evaluating Part D coverage. Your plan's formulary has a restriction on this drug. This restriction has been approved by [facility]. This restriction only applies to patients greater than or equal to 65 years of age. Coverage is provided when the diagnosis provided by your prescriber is considered a Medicare Part D use of the medication and your physician confirms they have weighed the safety versus benefit of this medication. Examples of common Medicare Part D covered uses are treatment of acute musculoskeletal conditions or acute muscle spasms. We based this decision on the coverage criteria for: [address] [place] Standard MEDD Prior Authorization Policy - HIGH RISK MEDICATIONS - CYCLOBENZAPRINE documented in this encounter [facility] 11-05-2023 Telephone encounter Note The following approved medication requests have been transmitted electronically. Requested Prescriptions Pending Prescriptions Disp Refills cyclobenzaprine (FLEXERIL) 10 mg tablet 60 tablet 0 Sig: Take 1 tablet by mouth two times a day as needed for muscle spasm. Iman Person APRN.[place] [facility] 11-05-2023 Miscellaneous Notes The following approved medication requests have been transmitted electronically. Requested Prescriptions Pending Prescriptions Disp Refills cyclobenzaprine (FLEXERIL) 10 mg tablet 60 tablet 0 Sig: Take 1 tablet by mouth two times a day as needed for muscle spasm. Iman Person APRN.[place] Pt calling to get a refill on medication below. Pt never started Tizanadine. Pt takes medication below and this helps with muscle spasms. Please let pt know when this has been sentto the pharmacy. Mikayla Mora LPN The patient has been identified by name and date of : Yes Caregiver verified no other encounters exist for this prescription request: Yes Caregiver confirmed with patient/requestor that no other refills are due, in the near future, with this provider at this time: Yes The last office visit in the department: 02/19/2023 Does the patient have a future office visit with this provider/department: Yes 11/29/2023 Requested Prescriptions Pending Prescriptions Disp Refills cyclobenzaprine (FLEXERIL) 10 mg tablet 60 tablet 5 Sig: Take 1 tablet by mouth two times a day as needed for muscle spasm. Mikayla Mora LPN November 05, 2023 11:51 AM documented in this encounter [facility] 11-05-2023 Telephone encounter Note Pt calling to get a refill on medication below. Pt never started Tizanadine. Pt takes medication below and this helps with muscle spasms. Please let pt know when this has been sentto the pharmacy. Mikayla Mora LPN The patient has been identified by name and date of : Yes Caregiver verified no other encounters exist for this prescription request: Yes Caregiver confirmed with patient/requestor that no other refills are due, in the near future, with this provider at this time: Yes The last office visit in the department: 02/19/2023 Does the patient have a future office visit with this provider/department: Yes 11/29/2023 Requested Prescriptions Pending Prescriptions Disp Refills cyclobenzaprine (FLEXERIL) 10 mg tablet 60 tablet 5 Sig: Take 1 tablet by mouth two times a day as needed for muscle spasm. Mikayla Mora LPN November 05, 2023 11:51 AM [facility] 10-22-2023 Telephone encounter Note Phoned patient and went over notes from Dr Fall with understanding. Aware rx sent to pharmacy. [facility] 10-22-2023 Miscellaneous Notes Phoned patient and went over notes from Dr Fall with understanding. Aware rx sent to pharmacy. OK for another Zpak as ordered Yoseph Fall MD No fevers. She is coughing a little bit. The congestion has mostly cleared. She did get some improvement with the zpak she was given but doesn't feel that the infection is completely resolved. Please advise. Notify pt with providers decision. [facility]ses [facility]. Naima Haines MA Tried to reach pt, line picks up, can hear back ground noise but no one says anything. Will try again later. Naima Haines MA Did she get any better with the Zpak she was given in the ER? If so I would consider refill of that. If it did not help would use a different antibiotic. Yoseph Fall MD ER report attached. Scan on 10/18/2023 6:02 AM by Provider, External, PALeobardoC: Consultation - Emergency Medicine Pt has requested that an antibiotic is called in for her. States she was just seen in the Emergency Room last week, however; is still having a discolored mucus with cough. Please advise. documented in this encounter [facility] 10-22-2023 Telephone encounter Note OK for another Zpak as ordered Yoseph Fall MD [facility] 10-22-2023 Telephone encounter Note No fevers. She is coughing a little bit. The congestion has mostly cleared. She did get some improvement with the zpak she was given but doesn't feel that the infection is completely resolved. Please advise. Notify pt with providers decision. [facility]ses [facility]. Naima Haines MA [facility] 10-22-2023 Telephone encounter Note Tried to reach pt, line picks up, can hear back ground noise but no one says anything. Will try again later. Naima Haines MA [facility] 10-22-2023 Telephone encounter Note Did she get any better with the Zpak she was given in the ER? If so I would consider refill of that. If it did not help would use a different antibiotic. Yoseph Fall MD [facility] 10-22-2023 Telephone encounter Note ER report attached. Scan on 10/18/2023 6:02 AM by Provider, MARY Howe: Consultation - Emergency Medicine [facility] 10-22-2023 Telephone encounter Note Pt has requested that an antibiotic is called in for her. States she was just seen in the Emergency Room last week, however; is still having a discolored mucus with cough. Please advise. [facility] 10-18-2023 Miscellaneous Notes OK to refill as ordered Yoseph Fall MD The patient has been identified by name and date of : Yes Caregiver verified no other encounters exist for this prescription request: Yes Caregiver confirmed with patient/requestor that no other refills are due, in the near future, with this provider at this time: Yes The last office visit in the department: 02/19/2023 Does the patient have a future office visit with this provider/department: Yes 11/23/2023 Requested Prescriptions Pending Prescriptions Disp Refills HYDROcodone-acetaminophen (NORCO) 5-325 mg per tablet 32 tablet 0 Sig: Take 1 tablet by mouth two times a day as needed for pain for up to 30 days. nicotine (NICODERM) 7 mg/24 hr 28 Patch 2 Sig: Apply 1 Patch as directed every 24 hours. rOPINIRole (REQUIP) 0.25 mg tablet 90 tablet 3 Sig: Take 1 tablet by mouth daily at bedtime. Cami Louie RN October 18, 2023 9:49 AM documented in this encounter [facility] 10-18-2023 Telephone encounter Note OK to refill as ordered Yoseph Fall MD [facility] 10-18-2023 Telephone encounter Note The patient has been identified by name and date of : Yes Caregiver verified no other encounters exist for this prescription request: Yes Caregiver confirmed with patient/requestor that no other refills are due, in the near future, with this provider at this time: Yes The last office visit in the department: 02/19/2023 Does the patient have a future office visit with this provider/department: Yes 11/23/2023 Requested Prescriptions Pending Prescriptions Disp Refills HYDROcodone-acetaminophen (NORCO) 5-325 mg per tablet 32 tablet 0 Sig: Take 1 tablet by mouth two times a day as needed for pain for up to 30 days. nicotine (NICODERM) 7 mg/24 hr 28 Patch 2 Sig: Apply 1 Patch as directed every 24 hours. rOPINIRole (REQUIP) 0.25 mg tablet 90 tablet 3 Sig: Take 1 tablet by mouth daily at bedtime. Cami Louie RN October 18, 2023 9:49 AM [facility] 10-01-2023 Telephone encounter Note The following approved medication requests have been transmitted electronically. Requested Prescriptions Signed Prescriptions Disp Refills tiZANidine (ZANAFLEX) 4 mg tablet 90 tablet 5 Sig: Take 1 tablet by mouth every 8 hours as needed (muscle spasms). Authorizing Provider: YOSEPH FALL MA [facility] 10-01-2023 Miscellaneous Notes The following approved medication requests have been transmitted electronically. Requested Prescriptions Signed Prescriptions Disp Refills tiZANidine (ZANAFLEX) 4 mg tablet 90 tablet 5 Sig: Take 1 tablet by mouth every 8 hours as needed (muscle spasms). Authorizing Provider: YOSEPH FALL MA OK for zanaflex as ordered Yoseph Fall MD [id number] calls to ask if provider would send in a different prescription than flexeril d/t having to pay for medication. Recommended contacting insurance to see what medication is covered and it was requested to just send something in as they can never get a hold of anyone at the insurance company. Pharmacy is [facility] Marre[facility] RN documented in this encounter [facility] 10-01-2023 Telephone encounter Note OK for zanaflex as ordered Yoseph Fall MD [facility] 10-01-2023 Telephone encounter Note [id number] calls to ask if provider would send in a different prescription than flexeril d/t having to pay for medication. Recommended contacting insurance to see what medication is covered and it was requested to just send something in as they can never get a hold of anyone at the insurance company. Pharmacy is [facility] Shelton Marrero RN [facility] 09-22-2023 Telephone encounter Note The following approved medication requests have been transmitted electronically. Requested Prescriptions Pending Prescriptions Disp Refills ipratropium-albuterol (DUONEB) 0.5 mg-3 mg(2.5 mg base)/3 mL nebu 360 mL 2 Sig: inhale 1 ampule via nebulizer every 4 hours if needed for wheezing. Use over 5 to 15 minutes Nelson Robert APRN.CNP [facility] 09-22-2023 Miscellaneous Notes The following approved medication requests have been transmitted electronically. Requested Prescriptions Pending Prescriptions Disp Refills ipratropium-albuterol (DUONEB) 0.5 mg-3 mg(2.5 mg base)/3 mL nebu 360 mL 2 Sig: inhale 1 ampule via nebulizer every 4 hours if needed for wheezing. Use over 5 to 15 minutes Nelson Robert APRN.CNP Patient has been identified by name and date of : Yes, Provider Yoseph Fall MD Date 09/22/2023 Time 11:13 am Patient phones for refill(s): Requested Prescriptions Pending Prescriptions Disp Refills ipratropium-albuterol (DUONEB) 0.5 mg-3 mg(2.5 mg base)/3 mL nebu 360 mL 2 Sig: inhale 1 ampule via nebulizer every 4 hours if needed for wheezing. Use over 5 to 15 minutes Date of last office visit in primary care: 08/23/2023 Date of next office visit in primary care: 11/23/2023 Please advise. Thank you. Louisa Nobles. documented in this encounter [facility] 09-22-2023 Telephone encounter Note Patient has been identified by name and date of : Yes, Provider Yoseph Fall MD Date 09/22/2023 Time 11:13 am Patient phones for refill(s): Requested Prescriptions Pending Prescriptions Disp Refills ipratropium-albuterol (DUONEB) 0.5 mg-3 mg(2.5 mg base)/3 mL nebu 360 mL 2 Sig: inhale 1 ampule via nebulizer every 4 hours if needed for wheezing. Use over 5 to 15 minutes Date of last office visit in primary care: 08/23/2023 Date of next office visit in primary care: 11/23/2023 Please advise. Thank you. Louisa Nobles. [facility] 09-16-2023 Telephone encounter Note OK to refill as ordered Yoseph Fall MD [facility] 09-16-2023 Miscellaneous Notes OK to refill as ordered Yoseph Fall MD Patient has been identified by name and date of : Yes, Provider Yoseph Fall MD Date 09/15/2023 Time 2:10 pm Patient phones for refill(s): Requested Prescriptions Pending Prescriptions Disp Refills HYDROcodone-acetaminophen (NORCO) 5-325 mg per tablet 32 tablet 0 Sig: Take 1 tablet by mouth two times a day as needed for pain for up to 30 days. Date of last office visit in primary care: 08/23/2023 Date of next office visit in primary care: 11/23/2023 Please advise. Thank you. Louisa Nobles. documented in this encounter [facility] 09-15-2023 Telephone encounter Note The following approved medication requests have been transmitted electronically. Requested Prescriptions Pending Prescriptions Disp Refills fluticasone (FLONASE) 50 mcg/actuation nasal spray 48 g 11 Sig: use 2 sprays in each nostril daily. Rinse mouth after use Iman Person APRN.CNP [facility] 09-15-2023 Miscellaneous Notes The following approved medication requests have been transmitted electronically. Requested Prescriptions Pending Prescriptions Disp Refills fluticasone (FLONASE) 50 mcg/actuation nasal spray 48 g 11 Sig: use 2 sprays in each nostril daily. Rinse mouth after use Iman Person APRN.CNP Patient has been identified by name and date of : Yes, Provider Date Time Patient phones for refill(s): Requested Prescriptions Pending Prescriptions Disp Refills fluticasone (FLONASE) 50 mcg/actuation nasal spray 48 g 11 Sig: use 2 sprays in each nostril daily. Rinse mouth after use Date of last office visit in primary care: 02/19/2023 Date of next office visit in primary care: 11/23/2023 Please advise. Thank you. Essie Medina RN. documented in this encounter [facility] 09-15-2023 Telephone encounter Note Patient has been identified by name and date of : Yes, Provider Yoseph Fall MD Date 09/15/2023 Time 2:10 pm Patient phones for refill(s): Requested Prescriptions Pending Prescriptions Disp Refills HYDROcodone-acetaminophen (NORCO) 5-325 mg per tablet 32 tablet 0 Sig: Take 1 tablet by mouth two times a day as needed for pain for up to 30 days. Date of last office visit in primary care: 08/23/2023 Date of next office visit in primary care: 11/23/2023 Please advise. Thank you. Louisa Nobles. T [facility] 09-15-2023 Telephone encounter Note Patient has been identified by name and date of : Yes, Provider Date Time Patient phones for refill(s): Requested Prescriptions Pending Prescriptions Disp Refills fluticasone (FLONASE) 50 mcg/actuation nasal spray 48 g 11 Sig: use 2 sprays in each nostril daily. Rinse mouth after use Date of last office visit in primary care: 02/19/2023 Date of next office visit in primary care: 11/23/2023 Please advise. Thank you. Essie Medina RN. T [facility] 08-23-2023 History of Presen t illness Narrative Chief Complaint Patient presents with: F/U 3 Month HPI:This Team Access Model visit is a virtual encounter. It required patient-provider interaction for the medical decision making as documented below. Patient was offered a virtual/telemedicine appointment in lieu of an office visit due to recommendations to reduce patient exposure to COVID-19. Patient is aware of limitations of performing the visit without a face to face visit in the office setting and agrees. I have communicated my name and active licensure. The patient's identity and physical location were verified at the time of this visit. Either the patient or their legal patient relations representative has been informed of the risks and benefits of -- and alternatives to -- treatment through a remote evaluation and consents to proceed with the evaluation remotely. Pt completing a tele-health visit for her routine 3 month follow up. Pt recently completed a tele-health visit for a hospital follow up. Wants to quit smoking. Smoking about 10 cigs/week GERD: Stable with use of Prilosec 20 mg once daily. Anxiety/Depression: Doesn't like to go out, prefers to stay home. Has good and bad days, with occasional panic attacks. On current regimen of Zoloft 100 mg 2 tabs po once daily and Requip 0.25 mg once daily. Discussed adding Buspar, but this was declined. HTN: Checks BP at home, states it's doing good. Denies any chest pain or dizziness. Does get sob due to COPD, but not cardiac related. On current regimen of Verapamil 240 mg once daily and Losartan 50 mg 0.5 tab prn if BP is 150/90. COPD: Recent hospital visit. Chronic tobacco use, trying to quit. Using O2 chronically 2-3 L. Breathing overall stable. Follows with Pulmonary, Dr. Guzmán. On current regimen of Singulair 10 mg daily, Albuterol Inhaler prn, Prednisone 20 mg prn, Advair bid and Spiriva once daily. Pain: uses Flexeril 10 mg daily, [place] 5-325 mg 1 pill BID prn, taking Tylenol 2 pills daily. Past medical history, appointments, medications, allergies reviewed. Previous Medical History PAST MEDICAL HISTORY Diagnosis Date Closed fracture of unspecified part of humerus Arm fracture Dysthymic disorder Depression (non-psychotic) Essential hypertension, benign 04/26/2006 Generalized anxiety disorder Anxiety, Generalized Generalized osteoarthrosis, involving multiple sites Osteoarthritis - renee. hands, knees Malignant neoplasm of bronchus and lung, unspecified site (HCC) 04/26/2003 Lung cancer OR (myocardial infarction) (HCC) 10-10 taken to [facility] heart stopped Obstructive chronic bronchitis with exacerbation (HCC) COPD Other abnormal Papanicolaou smear of cervix and cervical HPV(795.09) 04/26/2002 h/o abnormal paps, had colposcopy vs. cone, hasn't had any paps since dx of lung CA, but her last pap 4+ yrs ago was abnormal per pt Other and unspecified alcohol dependence, unspecified drinking behavior ETOH depend. syn. PMH - PAST MEDICAL HISTORY OF FX right foot Previous Surgical History PAST SURGICAL HISTORY Procedure Laterality Date CONIZATION CERVIX W/WO D&C RPR ELTRD EXC 2003 Dr. Danis BRYSON ERCP 06/22/2016 choledocholithiasis, cholangitis LAPS SURG CHOLECYSTECTOMY W/CHOLANGIOGRAPHY 08/06/2016 PAST SURGICAL HISTORY OF 1987 polyp removed from throat PAST SURGICAL HISTORY OF 1990 ectopic - took tube PAST SURGICAL HISTORY OF 1990 exploratory abd lap -? may have had ovary removed - pt told she cannot have children anymore PICC LINE INSERT/CONSULT 06/26/2016 PULMONARY FUNCTION TEST 08/14/04 RMVL LUNG OTHER THAN PNEUMONECTOMY 1 LOBE LOBECT 04/22/2004 right upper lobectomy Family History FAMILY HISTORY Problem Relation Age of Onset Cancer Mother : Throat, UTERINE Hypertension Mother Cancer Father Stomach CA Heart Father AAA Hypertension Father Heart Paternal Grandmother Breast Cancer Paternal Grandmother Heart Paternal Grandfather Patient Allergies ALLERGIES No Known Allergies Current Medications Current Outpatient Medications on File Prior to Visit Medication Sig sertraline (ZOLOFT) 100 mg tablet Take 2 tablets by mouth once daily. montelukast (SINGULAIR) 10 mg tablet ONE -TWO TABS Q 4HOURS PRN verapamil SR (CALAN SR) 240 mg CR tablet Take 1 tablet by mouth daily at bedtime. Cholecalciferol, Vitamin D3, 50 mcg (2,000 unit) cap Take 1 capsule by mouth once daily. nystatin (MYCOSTATIN) 100,000 unit/mL suspension Take 5 mL by mouth four times daily. 1tsp swish in mouth for several minutes, then swallow (or expectorate) 4 times daily until gone. omeprazole (PRILOSEC) 20 mg capsule Take 1 capsule by mouth once daily. ON AN EMPTY STOMACH tiotropium (SPIRIVA) 18 mcg inhalation capsule Inhale 1 capsule as instructed once daily. nicotine (NICODERM) 7 mg/24 hr Apply 1 Patch as directed every 24 hours. Nicotine Polacrilex [address] 1 Lozenge between cheek and gum as needed. predniSONE (DELTASONE) 10 mg tablet Take 1.5 tablets by mouth every other day. [START ON 08/13/2023] HYDROcodone-acetaminophen (NORCO) 5-325 mg per tablet Take 1 tablet by mouth two times a day as needed for pain for up to 30 days. Do not start before August 13, 2023. HYDROcodone-acetaminophen (NORCO) 5-325 mg per tablet Take 1 tablet by mouth two times a day as needed for pain for up to 30 days. Do not start before July 15, 2023. HYDROcodone-acetaminophen (NORCO) 5-325 mg per tablet Take 1 tablet by mouth two times a day as needed for pain for up to 30 days. Do not start before June 15, 2023. fluticasone-salmeterol (ADVAIR DISKUS) 500-50 mcg/dose dsdv Inhale 1 Puff as instructed two times a day. Rinse and gargle mouth with water after use. cyclobenzaprine (FLEXERIL) 10 mg tablet Take 1 tablet by mouth two times a day as needed for muscle spasm. ipratropium-albuterol (DUONEB) 0.5 mg-3 mg(2.5 mg base)/3 mL nebu inhale 1 ampule via nebulizer every 4 hours if needed for wheezing. Use over 5 to 15 minutes albuterol HFA (VENTOLIN HFA) 90 mcg/actuation inhaler Inhale 2 Puffs as instructed every 4 hours as needed. Nebulizer and Compressor For Neb Use as directed. Dx: COPD J44.9 Nebulizer Accessories [facility] Mask and supplies as needed rOPINIRole (REQUIP) 0.25 mg tablet Take 1 tablet by mouth daily at bedtime. PULSE OXIMETER [facility] Use as directed to check oxygen saturation level fluticasone (FLONASE) 50 mcg/actuation nasal spray use 2 sprays in each nostril daily. Rinse mouth after use ammonium lactate (AMLACTIN) 12 % lotion Apply 1 application to affected area as needed for Dry Skin. losartan (COZAAR) 50 mg tablet Take 0.5 tablets by mouth once daily. OXYGEN, HOME THERAPY, 2.5 L/min by Nasal Cannula route continuous. Use as directred Disposable Gloves (DISPOSABLE LATEX-FREE GLOVES) [facility] 1 Box once every month. ICD 10: M15.9, J44.9, M54.40 Incontinence Pad, Liner, Disp (POISE PADS) pads Use pads as directed. Dx: N39.46 COMPOUNDED PRESCRIPTION BLOOD PRESSURE CUFF FOR HOME USE. DX: HYPERTENSION I10. AUTOMATIC CUFF. COMPOUNDED PRESCRIPTION Blood pressure monitor for home use. Dx: I10 OXYGEN-AIR DELIVERY SYSTEMS DEVICE as necessary No current facility-administered medications on file prior to visit. Social History Social History Tobacco Use Smoking status: Every Day Packs/day: 1.00 Years: 42.00 Additional pack years: 0.00 Total pack years: 42.00 Types: Cigarettes Start date: 1969 Smokeless tobacco: Never Vaping Use Vaping Use: Never used Substance Use Topics Alcohol use: Yes Comment: Nothing since 03/2012. Drug use: No EXAM: LMP 02/27/2005 Health Maintenance List BP Controlled (<130/80) Never done Alpha-1 Antitrypsin Deficiency Screening Never done Shingrix Vaccine(1 of 2) Never done RSV Vaccine(1 - 1-dose 60+ series) Never done Pap Testing due on 10/24/2015 Mammogram Screening due on 10/16/2016 Bone Density Screening due on 2020 Covid-19 Vaccine( season) due on 12/25/2022 Advance Directive Discussion due on 04/26/2023 DTaP,Tdap,Td Vaccine(2 - Td or Tdap) due on 10/25/2023 Colorectal Cancer Screening due on 01/25/2024 Annual PCP Team Chronic Disease Visit due on 07/25/2024 Diabetes Screening due on 02/19/2026 Lipid Screening due on 02/20/2028 Spirometry Completed Influenza Vaccine Completed Hepatitis C Screening Completed Pneumococcal Vaccine: 65+ Completed Data reviewed none ASSESSMENT/PLAN: 1. Stage 3 severe COPD by GOLD classification (HCC) - ICD9: 496, ICD10: J44.9 (primary diagnosis) Continue current medications. 2. Essential hypertension, benign - ICD9: 401.1, ICD10: I10 - Controlled - Continue current medications - Recommend home blood pressure monitoring, to bring results to next visit - Encouraged sodium restriction, DASH or Mediterranean diet - Recommend regular aerobic exercise 3. Cigarette smoker - ICD9: 305.1, ICD10: F17.210 - Cessation encouraged. - Physiologic and physical aspects of tobacco addiction as well as strategies for quitting were discussed. - Counseling was given focusing on the harmful effects of this addiction especially given the patient's medical condition(s) which will be worsened because of the chemicals in tobacco. 4. Generalized anxiety disorder - ICD9: 300.02, ICD10: F41.1 Continue current medications. 5. Chronic low back pain with sciatica, sciatica laterality unspecified, unspecified back pain laterality - ICD9: 724.2, 724.3, 338.29, ICD10: M54.40, G89.29 Continue pain meds; also uses tylenol prn Follow up in 3 months I agree with the Chief Complaint, ROS, and Past Histories independently gathered by the clinical shipping support and the remaining scribed note accurately describes my personal service to the patient. 11-20 minutes of time spent on phone call Yoseph Fall MD The documentation for this note was completed by Naima Haines MA acting as scribe for Yoseph Fall MD. August 23, 2023 2:19 PM. Naima Haines MA documented in this encounter [facility] 08-23-2023 Note HNO ID: [id number] Author: YOSEPH FALL MD Service: ? Author Type: Physician Type: Progress Notes Filed: 08/23/2023 19:44 Note Text: Chief Complaint Patient presents with: F/U 3 Month HPI:This Team Access Model visit is a virtual encounter. It required patient-provider interaction for the medical decision making as documented below. Patient was offered a virtual/telemedicine appointment in lieu of an office visit due to recommendations to reduce patient exposure to COVID-19. Patient is aware of limitations of performing the visit without a face to face visit in the office setting and agrees. I have communicated my name and active licensure. The patient's identity and physical location were verified at the time of this visit. Either the patient or their legal patient relations representative has been informed of the risks and benefits of -- and alternatives to -- treatment through a remote evaluation and consents to proceed with the evaluation remotely. Pt completing a tele-health visit for her routine 3 month follow up. Pt recently completed a tele-health visit for a hospital follow up. Wants to quit smoking. Smoking about 10 cigs/week GERD: Stable with use of Prilosec 20 mg once daily. Anxiety/Depression: Doesn't like to go out, prefers to stay home. Has good and bad days, with occasional panic attacks. On current regimen of Zoloft 100 mg 2 tabs po once daily and Requip 0.25 mg once daily. Discussed adding Buspar, but this was declined. HTN: Checks BP at home, states it's doing good. Denies any chest pain or dizziness. Does get sob due to COPD, but not cardiac related. On current regimen of Verapamil 240 mg once daily and Losartan 50 mg 0.5 tab prn if BP is 150/90. COPD: Recent hospital visit. Chronic tobacco use, trying to quit. Using O2 chronically 2-3 L. Breathing overall stable. Follows with Pulmonary, Dr. Guzmán. On current regimen of Singulair 10 mg daily, Albuterol Inhaler prn, Prednisone 20 mg prn, Advair bid and Spiriva once daily. Pain: uses Flexeril 10 mg daily, [place] 5-325 mg 1 pill BID prn, taking Tylenol 2 pills daily. Past medical history, appointments, medications, allergies reviewed. Previous Medical History PAST MEDICAL HISTORY Diagnosis Date Closed fracture of unspecified part of humerus Arm fracture Dysthymic disorder Depression (non-psychotic) Essential hypertension, benign 04/26/2006 Generalized anxiety disorder Anxiety, Generalized Generalized osteoarthrosis, involving multiple sites Osteoarthritis - renee. hands, knees Malignant neoplasm of bronchus and lung, unspecified site (HCC) 04/26/2003 Lung cancer OR (myocardial infarction) (HCC) 10-10 taken to [facility] heart stopped Obstructive chronic bronchitis with exacerbation (HCC) COPD Other abnormal Papanicolaou smear of cervix and cervical HPV(795.09) 04/26/2002 h/o abnormal paps, had colposcopy vs. cone, hasn't had any paps since dx of lung CA, but her last pap 4+ yrs ago was abnormal per pt Other and unspecified alcohol dependence, unspecified drinking behavior ETOH depend. syn. PMH - PAST MEDICAL HISTORY OF FX right foot Previous Surgical History PAST SURGICAL HISTORY Procedure Laterality Date CONIZATION CERVIX W/WO DANDC RPR ELTRD EXC 2003 Dr. Danis BRYSON ERCP 06/22/2016 choledocholithiasis, cholangitis LAPS SURG CHOLECYSTECTOMY W/CHOLANGIOGRAPHY 08/06/2016 PAST SURGICAL HISTORY OF 1987 polyp removed from throat PAST SURGICAL HISTORY OF 1990 ectopic - took tube PAST SURGICAL HISTORY OF 1990 exploratory abd lap -? may have had ovary removed - pt told she cannot have children anymore PICC LINE INSERT/CONSULT 06/26/2016 PULMONARY FUNCTION TEST 08/14/04 RMVL LUNG OTHER THAN PNEUMONECTOMY 1 LOBE LOBECT 04/22/2004 right upper lobectomy Family History FAMILY HISTORY Problem Relation Age of Onset Cancer Mother : Throat, UTERINE Hypertension Mother Cancer Father Stomach CA Heart Father AAA Hypertension Father Heart Paternal Grandmother Breast Cancer Paternal Grandmother Heart Paternal Grandfather Patient Allergies ALLERGIES No Known Allergies Current Medications Current Outpatient Medications on File Prior to Visit Medication Sig sertraline (ZOLOFT) 100 mg tablet Take 2 tablets by mouth once daily. montelukast (SINGULAIR) 10 mg tablet ONE -TWO TABS Q 4HOURS PRN verapamil SR (CALAN SR) 240 mg CR tablet Take 1 tablet by mouth daily at bedtime. Cholecalciferol, Vitamin D3, 50 mcg (2,000 unit) cap Take 1 capsule by mouth once daily. nystatin (MYCOSTATIN) 100,000 unit/mL suspension Take 5 mL by mouth four times daily. 1tsp swish in mouth for several minutes, then swallow (or expectorate) 4 times daily until gone. omeprazole (PRILOSEC) 20 mg capsule Take 1 capsule by mouth once daily. ON AN EMPTY STOMACH tiotropium (SPIRIVA) 18 mcg inhalation capsule Inhale 1 capsule as instructed once daily. nicotine (NICODERM) 7 mg (more content not included)... [facility] 07-27-2023 Miscellaneous Notes OK to refill as ordered Yoseph Fall MD Patient has been identified by name and date of : Patient phones for refill(s): Requested Prescriptions Pending Prescriptions Disp Refills sertraline (ZOLOFT) 100 mg tablet 180 tablet 3 Sig: Take 2 tablets by mouth once daily. montelukast (SINGULAIR) 10 mg tablet 60 tablet 5 Sig: ONE -TWO TABS Q 4HOURS PRN verapamil SR (CALAN SR) 240 mg CR tablet 210 tablet 1 Sig: Take 1 tablet by mouth daily at bedtime. Cholecalciferol, Vitamin D3, 50 mcg (2,000 unit) cap 30 capsule 5 Sig: Take 1 capsule by mouth once daily. Date of last office visit in primary care: 02/19/2023 Date of next office visit in primary care: 08/23/2023 Please advise. Thank you. Brynn Watson LPN. documented in this encounter [facility] 07-26-2023 History of Presen t illness Narrative Transitional Care Management TCM Eligibility Documentation The following information was gathered during patient outreach 07/26/2023 07/26/2023 Date of Outreach: Outreach Attempt 1: Contact Made Date of Discharge 07/22/2023 Virtual Visit Audio Only Visit was used for evaluation of this patient; due to patient lack of technology I have communicated my name and active licensure. The patient's identity and physical location were verified at the time of this visit. Either the patient or their legal patient relations representative has been informed of the risks and benefits of -- and alternatives to -- treatment through a remote evaluation and consents to proceed with the evaluation remotely. Provider Documentation Denia Gonzalez is a 68 year old female here today for a follow up from recent hospitalization. I have reviewed the patient's hospital course including discharge summary, discharge medications , and follow up needs with the patient and any family members present at today's visit. HPI 7 day hospital follow up Pt completing a telephone visit for hospital follow up. Pt admitted into [facility] on 07/20/23 and discharged on 07/22/23. Overall feeling better than prior to being admitted. Had Nurse out today who checked all her vitals, which were good. Working on quitting smoking. Still has a patch on from the Hospital, but was given a prescription for Nicotine Gum and wondering if safe to use both. Has only smoked about 5 cigarettes over the past 10 days. Pt currently still taking Levaquin 750 mg 1 tab po once daily for 5 day, has one more pill to take. Prednisone 10 mg taper 4 tabs 3 days, 3 tabs 3 days, 2 tabs 3 days, 1 tab 3 days and 1/2 tab for 4 days. Nicorette 2 mg gum, states her Jknlizst-ks-cpi was picking this up today. SUMMARY: -Pt discharged from [facility] on 07/22/23. Pt admitted on 07/20/23. -Admitted for: Discharge Diagnosis (1) COPD with acute exacerbation: Status: Chronic Code(s): J44.1 - Chronic obstructive pulmonary disease with (acute) exacerbation (2) Viral URI with cough: Status: Acute Code(s): J06.9 - Acute upper respiratory infection, unspecified (3) Respiratory insufficiency: Status: Acute Code(s): R06.89 - Other abnormalities of breathing Per HPI: DENIA GONZALEZ, is a 68 F with a past medical history of essential hypertension, overweight; with BMI of 27.2 this admission, history of ongoing tobacco abuse; with subsequent steroid-dependent COPD, chronic hypoxic respiratory failure; on 2.5L NC, history of non-small cell lung cancer; s/p Right lobectomy, RLS, depression with anxiety, GERD and OA who presents to [facility] ER complaining of shortness of breath, wheezing and cough with green sputum. Ms. Gonzalez reports her symptoms began approximately 2 days prior to admission with a gradual onset of dyspnea on exertion that progressed to shortness of breath at rest. She had noticed rapidly developing upper respiratory infection symptoms and spite of her 50 mg of prednisone every other day, increased use of her nebulizers and a Z-Dahlia started by her primary care physician yesterday. She admits to subjective fevers and worsening cough and wheezing that caused her to activate EMS. She denies associated chills, nausea, vomiting, leg pain, leg swelling, chest pain or hemoptysis. She admits her symptoms are similar to her previous COPD exacerbations. In the ER she was diagnosed with acute exacerbation of COPD with clinical evidence of njzdm-lz-bkjnsby hypoxic respiratory insufficiency likely due to recent viral URI in the setting of ongoing tobacco abuse and she was then admitted to the general medical floor for ongoing care for stay that is expected to be greater than 48 hours. Hospital Course: 1. Acute COPD exacerbation with chronic hypoxic respiratory failure/tobacco abuse/history of non-small cell lung cancer?68-year-old female who periodically takes steroids depending on a flareup of her COPD presented to the hospital withincreasing shortness of breath. She was found to have a COPD exacerbation, initially she was not moving a lot of air and had significant wheezing. Today she said that she felt much better and asked if she could go home. We discussedthe need for amatory pulse ox, at around 3 PM she felt that she did not have a ride and that she would be okay to go home tomorrow and then reverse course and asked if she can go home right now. I discussed with her the possibility for discharge she expressed understanding Terrian of is going home and she would still like to go home. Her sputum culture did come back positive for strep agalactiae as well as a gram-negative clementina I did elect to discharge her on Levaquin for 5 days and will attempt to follow-up with the sputum cultures to see if any antibiotic adjustments would be necessary. Will place her on prolonged steroid taper and I discussed with her specific reasons why to return to the hospital. I do ask that she follow-up with her PCP in 3 to 5 days. She also asked for a prescription for Nicorette gum as she has the patches and lozenges at home EKG 07/20/23: Test Reason : DYSRHYTHMIA Vent. Rate : 128 BPM Atrial Rate : 128 BPM P-R Int : 156 ms QRS Dur : 082 ms QT Int : 294 ms P-R-T Axes : 079 034 067 degrees QTc Int : 429 ms Sinus tachycardia Right atrial enlargement Borderline ECG Confirmed by Junito Madrid ([id number]), photographic editor CLARISSE RAMIREZ ([id number]) on 07/20/2023 1:47:04 PM Chest XR 07/20/23: RAD/Chest 1 View (Portable) IMPRESSION: Chronic obstructive pulmonary disease. Small layering right effusion. Electronically Signed: Demetrius Rodgers MD at 4:48 EDT Respiratory Cx 07/24/23: # 2 Further studies to follow from [facility]. Streptococcus agalactiae (B) Amount Growth 3+ Pseudomonas aeruginosa Amount Growth 1+ Streptococcus agalactiae (B): REACTION Ampicillin Islt MODE <=0.25 S Penicillin G Islt MODE <=0.06 S cefTRIAXone Islt MODE <=0.12 S Clindamycin Islt MODE >=1 R Clindamycin.induced Susc Islt NEG Linezolid Islt MOED <=2 S Vancomycin Islt MODE 0.5 S Pseudomonas aeruginosa: REACTION Aztreonam Islt KB 30 S Records were obtained from [facility] Everywhere for continuity of care. VIDEO EXAMINATION GENERAL: well appearing, alert, in no acute distress Reports breathing has improved ASSESSMENT/PLAN: 1. Obstructive chronic bronchitis with exacerbation (HCC) - ICD9: 491.21, ICD10: J44.1 (primary diagnosis) Continue current medications. 2. Stage 3 severe COPD by GOLD classification (HCC) - ICD9: 496, ICD10: J44.9 3. Cigarette smoker - ICD9: 305.1, ICD10: F17.210 - Cessation encouraged. - Physiologic and physical aspects of tobacco addiction as well as strategies for quitting were discussed. - Counseling was given focusing on the harmful effects of this addiction especially given the patient's medical condition(s) which will be worsened because of the chemicals in tobacco. 4. Chronic respiratory failure with hypoxia (HCC) - ICD9: 518.83, 799.02, ICD10: J96.11 Follow up in 4 weeks for regular appt 11-20 minutes of time spent on phone call Yoseph Fall MD documented in this encounter [facility] 07-26-2023 History of Presen t illness Narrative TRANSITION CARE MANAGEMENT (TCM) INITIAL CONTACT Technology Advisor Outreach Provider Action/FYI: Pt reports that she's feeling a lot better. States that breathing is doing much better. States she almost done smoking. States that she's only smoked 5 cigarettes in the past 10 days. Using patches right now, but switching over to the gum. Was d/c home wearing a patch. Had [facility] out this morning who did vital check and all readings were normal. No medication changes, just added abx, steroids and nicorette gum, which DIL is picking this up today. Wants to quit smoking. Has 1 more day of abx. Initial contact with patient post discharge, spoke to patient. Patient identified by name and . TRANSITION CARE MANAGEMENT INITIAL OUTREACH DOCUMENTATION: 07/26/2023 Date of Outreach: Date of Discharge 07/22/2023 SUMMARY: -Pt discharged from [facility] on 07/22/23. Pt admitted on 07/20/23. -Admitted for: Discharge Diagnosis (1) COPD with acute exacerbation: Status: Chronic Code(s): J44.1 - Chronic obstructive pulmonary disease with (acute) exacerbation (2) Viral URI with cough: Status: Acute Code(s): J06.9 - Acute upper respiratory infection, unspecified (3) Respiratory insufficiency: Status: Acute Code(s): R06.89 - Other abnormalities of breathing Per HPI: DENIA GONZALEZ, is a 68 F with a past medical history of essential hypertension, overweight; with BMI of 27.2 this admission, history of ongoing tobacco abuse; with subsequent steroid-dependent COPD, chronic hypoxic respiratory failure; on 2.5L [place], history of non-small cell lung cancer; s/p Right lobectomy, RLS, depression with anxiety, GERD and OA who presents to [facility] ER complaining of shortness of breath, wheezing and cough with green sputum. Ms. Gonzalez reports her symptoms began approximately 2 days prior to admission with a gradual onset of dyspnea on exertion that progressed to shortness of breath at rest. She had noticed rapidly developing upper respiratory infection symptoms and spite of her 50 mg of prednisone every other day, increased use of her nebulizers and a Z-Dahlia started by her primary care physician yesterday. She admits to subjective fevers and worsening cough and wheezing that caused her to activate EMS. She denies associated chills, nausea, vomiting, leg pain, leg swelling, chest pain or hemoptysis. She admits her symptoms are similar to her previous COPD exacerbations. In the ER she was diagnosed with acute exacerbation of COPD with clinical evidence of vunjs-vx-fosflhy hypoxic respiratory insufficiency likely due to recent viral URI in the setting of ongoing tobacco abuse and she was then admitted to the general medical floor for ongoing care for stay that is expected to be greater than 48 hours. Hospital Course: 1. Acute COPD exacerbation with chronic hypoxic respiratory failure/tobacco abuse/history of non-small cell lung cancer?68-year-old female who periodically takes steroids depending on a flareup of her COPD presented to the hospital withincreasing shortness of breath. She was found to have a COPD exacerbation, initially she was not moving a lot of air and had significant wheezing. Today she said that she felt much better and asked if she could go home. We discussedthe need for amatory pulse ox, at around 3 PM she felt that she did not have a ride and that she would be okay to go home tomorrow and then reverse course and asked if she can go home right now. I discussed with her the possibility for discharge she expressed understanding Solo of is going home and she would still like to go home. Her sputum culture did come back positive for strep agalactiae as well as a gram-negative clementina I did elect to discharge her on Levaquin for 5 days and will attempt to follow-up with the sputum cultures to see if any antibiotic adjustments would be necessary. Will place her on prolonged steroid taper and I discussed with her specific reasons why to return to the hospital. I do ask that she follow-up with her PCP in 3 to 5 days. She also asked for a prescription for Nicorette gum as she has the patches and lozenges at home EKG 07/20/23: Test Reason : DYSRHYTHMIA Vent. Rate : 128 BPM Atrial Rate : 128 BPM P-R Int : 156 ms QRS Dur : 082 ms QT Int : 294 ms P-R-T Axes : 079 034 067 degrees QTc Int : 429 ms Sinus tachycardia Right atrial enlargement Borderline ECG Confirmed by Junito Madrid ([id number]), photographic editor CLARISSE RAMIREZ ([id number]) on 07/20/2023 1:47:04 PM Chest XR 07/20/23: RAD/Chest 1 View (Portable) IMPRESSION: Chronic obstructive pulmonary disease. Small layering right effusion. Electronically Signed: Demetrius Rodgers MD at 4:48 EDT Respiratory Cx 07/24/23: # 2 Further studies to follow from [facility]. Streptococcus agalactiae (B) Amount Growth 3+ Pseudomonas aeruginosa Amount Growth 1+ Streptococcus agalactiae (B): REACTION Ampicillin Islt MODE <=0.25 S Penicillin G Islt MODE <=0.06 S cefTRIAXone Islt MODE <=0.12 S Clindamycin Islt MODE >=1 R Clindamycin.induced Susc Islt NEG Linezolid Islt MODE <=2 S Vancomycin Islt MODE 0.5 S Pseudomonas aeruginosa: REACTION Aztreonam Islt KB 30 S Records were obtained from [facility] Everywhere for continuity of care. Do you have a hospital follow up appointment with your PCP? Appointment on 07/26/23 with 7:20 pm with PCP. Yes. Pt scheduled MEDICATIONS: Many patients have questions or concerns about their medications once they are home. Were you prescribed any new medications? Yes, Levaquin 750 mg 1 tab po once daily for 5 days. Prednisone 10 mg taper 4 tabs 3 days, 3 tabs 3 days, 2 tabs 3 days, 1 tab 3 days and 1/2 tab for 4 days. Nicorette 2 mg gum. Pt was d/c home wearing Nicotine patch. Were you told to hold any medications? No Were any of your medications discontinued? No Do you have any questions about getting or taking your medications? No Your discharge instructions/After visit Summary (AVS) are important in guiding you through the recovery process. Is there anything I might help you understand? No Do you have all the necessary equipment and supplies at home? Yes Medical records from recent hospitalization: Care Everywhere/[facility] records Sanjana Baca MA documented in this encounter [facility] 07-22-2023 Discharge summary Note Date/Time July 22, 2023 4:04pm [facility] Medical Records Department [address] [place] [address] Instructions for Home/Discharge Instructions 07/22/23 1603 MR#: [id number] Acct: [id number] Name: DENIA GONZALEZ Rep #:[id number] : 1955 68 From: Jan brennan MD PCP: Dr. Yoseph Fall MD Status:AD M IN Discharge Instructions Diet Discharge Diet: Low fat / Low cholesterol Activity Discharge Activity: Return to Normal Activity Dressing / Incision Call your doctor if you observe: Fever of 101 or Higher, Shortness of breath, Dizziness, Fainting spells, Swelling in the ankles, Chest pain and Increased palpitations (irregular heartbeat) Follow Up Care Test Results: Test results from this visit will be discussed in further detail at your follow-up appointment, if applicable. Discharge Plan Admission Admit Date/Time: 07/20/23 04:25 Attending Provider: Jan Bolanos Primary Care Provider: Yoseph Fall Consulting Providers: José Cunningham Discharge Orders/Prescriptions Prescriptions: New levofloxacin 750 mg tablet 750 mg PO DAILY Qty: 5 0RF prednisone 10 mg tablet 10 mg PO DAILY Qty: 32 0RF Rx Instructions: Take 4 tablets daily for 3 days then 3 tablets daily for 3 days then 2 tablets daily for 3 days then 1 tablet daily for 3 days then half tablet daily for 4 days. Continued cyclobenzaprine 10 MG tablet 10 mg PO Q12H 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 omeprazole 20 MG capsule 20 mg PO DAILY Patient Comments: ACID REFLUX MEDICATION verapamil 240 MG tablet 360 mg PO DAILY Patient Comments: HEART MEDICATION montelukast 10 MG tablet 10 mg PO DAILY Patient Comments: ANTI-HISTAMINE albuterol sulfate [Ventolin HFA] 1 INHALER inhaler 1 - 2 puff inhalation Q4H PRN PRN (Reason: Bronchodialation) Patient Comments: COPD/SHORTNESS OF BREATH fluticasone propionate 1 SPRAY spray,suspension 1 spray intranasal DAILY Patient Comments: NASAL SPRAY TO HELP CONGESTION tiotropium bromide [Spiriva with HandiHaler] 1 PUFF inhaler 1 puff inhalation DAILY Patient Comments: INHALER FOR COPD sertraline 100 MG tablet 100 mg PO DAILY Patient Comments: mood enhancement Oxygen, Home [Home Oxygen] 2.5 lpm NASAL PRN PRN (Reason: Dyspnea) Patient Comments: oxygen fluticasone propion-salmeterol [Advair Diskus] 1 PUFF inhaler 1 puff inhalation BID Qty: 1 0RF Patient Comments: nasal congestion hydrocodone-acetaminophen 1 EACH tablet 7.5 - 325 mg PO Q6H PRN PRN (Reason: Pain) Patient Comments: pain Ropinirole Hcl 0.25 MG tablet 0.25 mg PO QHS Patient Comments: restless legs prednisone 10 MG tablet 15 mg PO PRN PRN (Reason: FLARE UPS) Patient Comments: steroid for inflammation ipratropium-albuterol 3 ML solution for nebulization 3 ml inhalation Q4HWA.RT Qty: 30 0RF guaifenesin [Mucus Relief ER] 600 MG tablet 600 mg PO BID 0RF lorazepam 0.5 MG tablet 0.5 mg PO QHS Qty: 7 0RF Referrals / Follow Up: Yoseph Fall MD [Primary Care Provider] - 1 Week if not improving Disposition Disposition (needs filled in before D/C Order can be placed): Home, Self Care 07/22/231611<Electronically signed by Jan Bolanos MD>Jan Bolanos MD CC: Dr. José Cunningham DO; Dr. Yoseph Fall MD ~ Signed [facility] Work Phone: [phone] 295-779003-28-2024 Discharge summary Author Jan Bolanos [facility] July 22, 2023 4:18pm Note Date/Time July 22, 2023 4:1 7pm [facility] Medical Records Department [address] [place] [id number] Discharge Summary 07/22/231611 MR#: [id number] Acct: [id number] Name: DENIA GONZALEZ Rep #:[id number] : 1955 68 From: Jan brennan MD PCP: Dr. Yoseph Fall MD Status:AD M IN Location: [facility] [id number] Providers Date of Admission: 07/20/23 Primary Care Physician: Dr. Yoseph Fall MD Reason For Visit: ACUTE EXACERBATION OF COPD WITH [id number] Diagnosis Discharge Diagnosis (1) COPD with acute exacerbation: Status: Chronic Code(s): J44.1 - Chronic obstructive pulmonary disease with (acute) exacerbation (2) Viral URI with cough: Status: Acute Code(s): J06.9 - Acute upper respiratory infection, unspecified (3) Respiratory insufficiency: Status: Acute Code(s): R06.89 - Other abnormalities of breathing Medications at Discharge Home Medications albuterol sulfate 90 mcg/actuation aerosol inhaler (Ventolin HFA) 1 - 2 puff inhalation Q4H PRN PRN Bronchodialation 04/18/13 cyclobenzaprine 10 mg tablet 10 mg PO Q12H pain 04/18/13 fluticasone propionate 50 mcg/actuation nasal spray,suspension 1 spray intranasal DAILY nasal congestion 04/18/13 montelukast 10 mg tablet 10 mg PO DAILY allergies 04/18/13 omeprazole 20 mg capsule,delayed release 20 mg PO DAILY heart burn 04/18/13 tiotropium bromide 18 mcg capsule with inhalation device (Spiriva with HandiHaler) 1 puff inhalation DAILY wheezing 04/18/13 verapamil 240 mg tablet,extended release 360 mg PO DAILY heart 04/18/13 Oxygen, Home [Home Oxygen] 2.5 lpm PRN PRN Dyspnea 10/22/13 sertraline 100 mg tablet 100 mg PO DAILY insomina 10/22/13 fluticasone 500 mcg-salmeterol 50 mcg/dose blistr powdr for inhalation (Advair Diskus) 1 puff inhalation BID shortness of breath ##1 10/26/13 Ropinirole Hcl 0.25 mg PO QHS restless legs 09/23/14 hydrocodone 7.5 mg-acetaminophen 325 mg tablet 7.5 - 325 mg PO Q6H PRN PRN Pain 09/23/14 prednisone 10 mg tablet 15 mg PO PRN PRN FLARE UPS 04/03/15 guaifenesin 600 mg tablet, extended release 12 hr (Mucus Relief ER) 600 mg PO BID congestion 05/13/16 ipratropium 0.5 mg-albuterol 3 mg (2.5 mg base)/3 mL nebulization soln 3 ml inhalation Q4HWA.RT wheezing ##30 05/13/16 lorazepam 0.5 mg tablet 0.5 mg PO QHS anxiety #7 tabs 05/05/20 levofloxacin 750 mg tablet 750 mg PO DAILY #5 tabs 07/22/23 nicotine (polacrilex) 2 mg gum (Nicorette) 2 mg buccal Q2H #20 ea 07/22/23 prednisone 10 mg tablet 10 mg PO DAILY #32 tabs 07/22/23 Hospital Course Operations None Procedures None Summary of Care Provided Minutes Spent on Discharge: 38 Hospital Course: Per HPI: DENIA GONZALEZ, is a 68 F with a past medical history of essential hypertension, overweight; with BMI of 27.2 this admission, history of ongoing tobacco abuse; with subsequent steroid-dependent COPD, chronic hypoxic respiratory failure; on 2.5L [place], history of non-small cell lung cancer; s/p Right lobectomy, RLS, depression with anxiety, GERD and OA who presents to [facility] ER complaining of shortness of breath, wheezing and cough with green sputum. Ms. Gonzalez reports her symptoms began approximately 2 days prior to admission with a gradual onset of dyspnea on exertion that progressed to shortness of breath at rest. She had noticed rapidly developing upper respiratory infection symptoms and spite of her 50 mg of prednisone every other day, increased use of her nebulizers and a Z-Dahlia started by her primary care physician yesterday. She admits to subjective fevers and worsening cough and wheezing that caused her to activate EMS. She denies associated chills, nausea, vomiting, leg pain, leg swelling, chest pain or hemoptysis. She admits her symptoms are similar to her previous COPD exacerbations. In the ER she was diagnosed with acute exacerbation of COPD with clinical evidence of apkcd-ms-ryroapu hypoxic respiratory insufficiency likely due to recent viral URI in the setting of ongoing tobacco abuse and she was then admitted to the general medical floor for ongoing care for stay that is expected to be greater than 48 hours. Hospital Course: 1. Acute COPD exacerbation with chronic hypoxic respiratory failure/tobacco abuse/history of non-small cell lung cancer?68-year-old female who periodically takes steroids depending on a flareup of her COPD presented to the hospital withincreasing shortness of breath. She was found to have a COPD exacerbation, initially she was not moving a lot of air and had significant wheezing. Today she said that she felt much better and asked if she could go home. We discussedthe need for amatory pulse ox, at around 3 PM she felt that she did not have a ride and that she would be okay to go home tomorrow and then reverse course and asked if she can go home right now. I discussed with her the possibility for discharge she expressed understanding Solo of is going home and she would still like to go home. Her sputum culture did come back positive for strep agalactiae as well as a gram-negative clementina I did elect to discharge her on Levaquin for 5 days and will attempt to follow-up with the sputum cultures to see if any antibiotic adjustments would be necessary. Will place her on prolonged steroid taper and I discussed with her specific reasons why to return to the hospital. I do ask that she follow-up with her PCP in 3 to 5 days. She also asked for a prescription for Nicorette gum as she has the patches and lozenges at home. 2. Essential hypertension, anxiety, depression, GERD are all chronic medical conditions which complicate her care. Her home medications were continued whereappropriate Physical Exam Narrative General: Alert, Oriented x3, Cooperative, No apparent distress HEENT: Atraumatic, PERRLA, EOMI, Normocephalic Oral: Moist Mucosa Neck: Supple, No JVD Lungs: Diminished, improved air movement, No rhonchi, wheeze, No rales Cardiovascular: Tachycardic, Regular Rhythm, Normal S1, Normal S2, No murmurs Abdomen: Soft, Non Tender, Non-Distended, No Hepato-splenomegaly Extremities: No edema, Capillary Refill Less than 3 Seconds Skin: No rashes, No breakdown Musculoskeletal: No Tenderness to Palpation of Joints or Extremities Neurological: No focal neurological deficits, Motor Exam 5/5 strength throughout, Sensory exam intact to light touch and pain Psych/Mental Status: Normal Affect, Appropriate Weight / BMI Weight Weight: 155 lb 10.342 oz Body Mass Index (BMI) 26.5 ABG / Lab / Microbiology Data 07/21/23 06:38 07/21/23 06:38 Microbiology: Microbiology 07/21/23 11:30 Sputum, Expectorated/Coughed Gram Stain - Final 07/21/23 11:30 Sputum, Expectorated/Coughed Respiratory Culture - Preliminary Streptococcus agalactiae (B) Gram negative clementina 07/20/23 03:15 Mucosa - Nose SARS-CoV-2, Influenza & RSV (PCR) - Final D/C Instructions Discharge Diet: Low fat / Low cholesterol Call your doctor if you observe: Fever of 101 or Higher, Shortness of breath, Dizziness, Fainting spells, Swelling in the ankles, Chest pain and Increased palpitations (irregular heartbeat) Meaningful Use Info Meaningful Use Diagnoses (Choose all that apply): None applicable Discharge Plan Admission Admit Date/Time: 07/20/23 04:25 Attending Provider: Jan Bolanos Primary Care Provider: Yoseph Fall Consulting Providers: José Cunningham Discharge Orders/Prescriptions Prescriptions: New levofloxacin 750 mg tablet 750 mg PO DAILY Qty: 5 0RF prednisone 10 mg tablet 10 mg PO DAILY Qty: 32 0RF Rx Instructions: Take 4 tablets daily for 3 days then 3 tablets daily for 3 days then 2 tablets daily for 3 days then 1 tablet daily for 3 days then half tablet daily for 4 days. nicotine (polacrilex) [Nicorette] 2 mg gum 2 mg buccal Q2H Qty: 20 0RF Continued cyclobenzaprine 10 MG tablet 10 mg PO Q12H 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 omeprazole 20 MG capsule 20 mg PO DAILY Patient Comments: ACID REFLUX MEDICATION verapamil 240 MG tablet 360 mg PO DAILY Patient Comments: HEART MEDICATION montelukast 10 MG tablet 10 mg PO DAILY Patient Comments: ANTI-HISTAMINE albuterol sulfate [Ventolin HFA] 1 INHALER inhaler 1 - 2 puff inhalation Q4H PRN PRN (Reason: Bronchodialation) Patient Comments: COPD/SHORTNESS OF BREATH fluticasone propionate 1 SPRAY spray,suspension 1 spray intranasal DAILY Patient Comments: NASAL SPRAY TO HELP CONGESTION tiotropium bromide [Spiriva with HandiHaler] 1 PUFF inhaler 1 puff inhalation DAILY Patient Comments: INHALER FOR COPD sertraline 100 MG tablet 100 mg PO DAILY Patient Comments: mood enhancement Oxygen, Home [Home Oxygen] 2.5 lpm NASAL PRN PRN (Reason: Dyspnea) Patient Comments: oxygen fluticasone propion-salmeterol [Advair Diskus] 1 PUFF inhaler 1 puff inhalation BID Qty: 1 0RF Patient Comments: nasal congestion hydrocodone-acetaminophen 1 EACH tablet 7.5 - 325 mg PO Q6H PRN PRN (Reason: Pain) Patient Comments: pain Ropinirole Hcl 0.25 MG tablet 0.25 mg PO QHS Patient Comments: restless legs prednisone 10 MG tablet 15 mg PO PRN PRN (Reason: FLARE UPS) Patient Comments: steroid for inflammation ipratropium-albuterol 3 ML solution for nebulization 3 ml inhalation Q4HWA.RT Qty: 30 0RF guaifenesin [Mucus Relief ER] 600 MG tablet 600 mg PO BID 0RF lorazepam 0.5 MG tablet 0.5 mg PO QHS Qty: 7 0RF Referrals / Follow Up: Yoseph Fall MD [Primary Care Provider] - 1 Week if not improving Disposition Disposition (needs filled in before D/C Order can be placed): Home, Self Care Charges/Coding Visit Charges Inpatient E&M: 51527 Disch Hosp >30min 07/22/23 1618 <Electronically signed by Jan Bolanos MD> Cosigner Signature (if applicable): CC: Dr. Yoseph Fall MD; Dr. Jan Bolanos MD~ Signed [facility] Work Phone: [phone]) 427-706203-28-2024 [facility] Medical Records Department [address] [place] [address] Discharge Summary 07/22/23 1612 MR#: [id number] Acct: [id number] Name: DENIA GONZALEZ Rep #: [id number] : 1955 68 From: Jan Bolanos MD PCP: Dr. Yoseph Fall MD Status:ADM IN Location: [facility] HV022-9 Providers Date of Admission: 07/20/23 Primary Care Physician: Dr. Yoseph Fall MD Reason For Visit: ACUTE EXACERBATION OF COPD WITH RWKAN-RE-SUAQHPP Diagnosis Discharge Diagnosis (1) COPD with acute exacerbation: Status: Chronic Code(s): J44.1 - Chronic obstructive pulmonary disease with (acute) exacerbation (2) Viral URI with cough: Status: Acute Code(s): J06.9 - Acute upper respiratory infection, unspecified (3) Respiratory insufficiency: Status: Acute Code(s): R06.89 - Other abnormalities of breathing Medications at Discharge Home Medications albuterol sulfate 90 mcg/actuation aerosol inhaler (Ventolin HFA) 1 - 2 puff inhalation Q4H PRN PRN Bronchodialation 04/18/13 cyclobenzaprine 10 mg tablet 10 mg PO Q12H pain 04/18/13 fluticasone propionate 50 mcg/actuation nasal spray,suspension 1 spray intranasal DAILY nasal congestion 04/18/13 montelukast 10 mg tablet 10 mg PO DAILY allergies 04/18/13 omeprazole 20 mg capsule,delayed release 20 mg PO DAILY heart burn 04/18/13 tiotropium bromide 18 mcg capsule with inhalation device (Spiriva with HandiHaler) 1 puff inhalation DAILY wheezing 04/18/13 verapamil 240 mg tablet,extended release 360 mg PO DAILY heart 04/18/13 Oxygen, Home [Home Oxygen] 2.5 lpm PRN PRN Dyspnea 10/22/13 sertraline 100 mg tablet 100 mg PO DAILY insomina 10/22/13 fluticasone 500 mcg-salmeterol 50 mcg/dose blistr powdr for inhalation (Advair Diskus) 1 puff inhalation BID shortness of breath ##1 10/26/13 Ropinirole Hcl 0.25 mg PO QHS restless legs 09/23/14 hydrocodone 7.5 mg-acetaminophen 325 mg tablet 7.5 - 325 mg PO Q6H PRN PRN Pain 09/23/14 prednisone 10 mg tablet 15 mg PO PRN PRN FLARE UPS 04/03/15 guaifenesin 600 mg tablet, extended release 12 hr (Mucus Relief ER) 600 mg PO BID congestion 05/13/16 ipratropium 0.5 mg-albuterol 3 mg (2.5 mg base)/3 mL nebulization soln 3 ml inhalation Q4HWA.RT wheezing ##30 05/13/16 lorazepam 0.5 mg tablet 0.5 mg PO QHS anxiety #7 tabs 05/05/20 levofloxacin 750 mg tablet 750 mg PO DAILY #5 tabs 07/22/23 nicotine (polacrilex) 2 mg gum (Nicorette) 2 mg buccal Q2H #20 ea 07/22/23 prednisone 10 mg tablet 10 mg PO DAILY #32 tabs 07/22/23 Hospital Course Operations None Procedures None Summary of Care Provided Minutes Spent on Discharge: 38 Hospital Course: Per HPI: DENIA GONZALEZ, is a 68 F with a past medical history of essential hypertension, overweight; with BMI of 27.2 this admission, history of ongoing tobacco abuse; with subsequent steroid-dependent COPD, chronic hypoxic respiratory failure; on 2.5L NC, history of non-small cell lung cancer; s/p Right lobectomy, RLS, depression with anxiety, GERD and OA who presents to [facility] ER complaining of shortness of breath, wheezing and cough with green sputum. Ms. Carlos stallworth eports her symptoms began approximately 2 days prior to admission with a gradual onset of dyspnea on exertion that progressed to shortness of breath at rest. She had noticed rapidly developing upper respiratory infection symptoms and spite of her 50 mg of prednisone every other day, increased use o f her nebulizers and a Z-Dahlia started by her primary care physician yesterday. She admits to subject ene fevers and worsening cough and wheezing that caused her to activate EMS. She denies associated chills, nausea, vomiting, leg pain, leg swelling, chest pain or hemoptysis. She admits her symptoms are similar to her previous COPD exacerbations. In the ER she was diagnosed with acute exacerbation of COPD with clinical evidence of [id number] hypoxic respiratory insufficiency likely due to recent viral URI in the setting of ongoing tobacco abuse and she was then admitted to the general edical floor for ongoing care for stay that is expected to be greater than 48 hours. Hospital Course: 1. Acute COPD exacerbation with chronic hypoxic respiratory failure/tobacco abuse/history of non- small cell lung cancer???68-year-old female who periodically takes steroids depending on a flareup of her COPD presented to the hospital with increasing shortness of breath. She was found to have a COPD exacerbation, initially she was not moving a lot of air and had significant wheezing. Today she said that she felt much better and asked if she could go home. We discussed the need for amatory pulse ox, at around 3 PM she felt that she did not have a ride and that she would be okay to go home tomorrow and then reverse course and asked if she can go home right now. I discussed with her the possibility for discharge she expressed under (more content not included)...[facility]03-28-2024 Progress note Author Jan Bolanos [facility] July 22, 2023 11:02am Note Date/Time July 22, 2023 11: 02am [facility] Medical Records Department [address] [place] [address] Progress Note - Hospitalist 07/22/23 1101 MR#: [id number] Acct: [id number] Name: DENIA GONZALEZ Rep #:[id number] : 1955 68 From: Jan brennan MD PCP: Dr. Yoseph Fall MD Status:AD M IN Location: [place] [address] Subjective Subjective Doing well, feels like she is breathing a bit better today. Objective Data Objective Data Vital Signs: Vital Signs Temp Pulse Resp BP Pulse Ox O2 Del Method O2 Flow Rate 98.1 F 107 H 19 H 129/69 H 96 Nasal Cannula 2.5 07/22/23 10:15 07/22/23 10:15 07/22/23 10:15 07/22/23 10:15 07/22/23 10:15 07/22/23 10:15 07/22/23 10:15 Oxygen Flow Rate (L/min) 2.5 Oxygen Delivery Method Nasal Cannula Weight: 155 lb 10.342 oz Body Mass Index (BMI) 26.5 Intake & Output: Intake and Output for Last 24 Hours 07/21/23 07/22/23 07/23/23 03:59 03:59 03:59 Intake Total 3205 / 3205 2731.16 / 2731.16 Balance 3205 / 3205 2731.16 / 2731.16 Lab / Micro Data 07/21/23 06:38 07/21/23 06:38 Micro: Microbiology 07/21/23 11:30 Sputum, Expectorated/Coughed Gram Stain - Final 07/20/23 03:15 Mucosa - Nose SARS-CoV-2, Influenza & RSV (PCR) - Final Rhythm Strip Rhythm Strip: Sinus Tach Rate: 128 Ectopy: None Physical Exam Narrative General: Alert, Oriented x3, Cooperative, No apparent distress HEENT: Atraumatic, PERRLA, EOMI, Normocephalic Oral: Moist Mucosa Neck: Supple, No JVD Lungs: Diminished, improved air movement, No rhonchi, wheeze, No rales Cardiovascular: Tachycardic, Regular Rhythm, Normal S1, Normal S2, No murmurs Abdomen: Soft, Non Tender, Non-Distended, No Hepato-splenomegaly Extremities: No edema, Capillary Refill Less than 3 Seconds Skin: No rashes, No breakdown Musculoskeletal: No Tenderness to Palpation of Joints or Extremities Neurological: No focal neurological deficits, Motor Exam 5/5 strength throughout, Sensory exam intact to light touch and pain Psych/Mental Status: Normal Affect, Appropriate Assessment & Plan Assessment/Plan (1) COPD with acute exacerbation: (2) Viral URI with cough: (3) Respiratory insufficiency: PLAN: Plan 1. Acute COPD exacerbation with chronic hypoxic respiratory failure/tobacco abuse/history of non-small cell lung cancer ?Continue with IV steroids as well as breathing treatments ? Will attempt to get a sputum culture though she has been on doxycycline for 24hours ? She feels short of breath but she is at her baseline oxygen requirements ? Will obtain an ambulatory pulse ox today just to gauge as to where we are at in her course as 1 was not done yesterday ? She would like a Nicorette gum on discharge she has the patch and the lozenge at home ? She is status post right lobectomy for her lung cancer ? Discussed tobacco cessation 2. Essential HTN ? Blood pressure stable ? Continue with verapamil ? Will monitor make adjustments as necessary 3. Anxiety/depression ? Stable ? Continue with home medications 4. GERD ? Stable ? Continue with PPI DVT: Lovenox Charges/Coding Visit Charges Inpatient E&M: 18086 Subs Hosp L2 07/22/23 1102 <Electronically signed by Jan Bolanos MD> Cosigner Signature (if applicable): CC: ~ Signed [facility] Work Phone: 1(592) 143-140703-27-2024 Progress note Author Jan Bolanos [facility] July 21, 2023 10:28am Note Date/Time July 21, 2023 10: 25am [facility] Medical Records Department [address] [place] [address] [place] [address] Progress Note - Hospitalist 07/21/23 1013 MR#: [id number] Acct: [id number] Name: DENIA GONZALEZ Rep #:[id number] : 1955 68 From: Jan brennan MD PCP: Dr. Yoseph Fall MD Status:AD M IN Location: [facility] [id number] Subjective Subjective She feels about the same as when she came in. She is on her baseline 2 L of oxygen Objective Data Objective Data Vital Signs: Vital Signs Temp Pulse Resp BP Pulse Ox O2 Del Method O2 Flow Rate 98.3 F 103 H 19 H 121/68 H 93 Nasal Cannula 2 07/21/23 05:00 07/21/23 07:10 07/21/23 07:10 07/21/23 05:00 07/21/23 08:00 07/21/23 08:00 07/21/23 08:00 Oxygen Flow Rate (L/min) 2 Oxygen Delivery Method Nasal Cannula Weight: 155 lb 6.814 oz Body Mass Index (BMI) 26.5 Intake & Output: Intake and Output for Last 24 Hours 07/20/23 07/21/23 07/22/23 03:59 03:59 03:59 Intake Total 3205 / 3205 250 / 250 Balance 3205 / 3205 250 / 250 Lab / Micro Data 07/21/23 06:38 07/21/23 06:38 Labs: Laboratory Results - last 24 hr 07/21/23 06:38: WBC 6.9, RBC 4.52, Hgb 12.0, Hct 37.4, MCV 82.7, MCH 26.5 L, MCHC 32.1, RDW Std Deviation 40.3, RDW Coeff of Augustin 13.4, Plt Count 210, MPV 9.9,Immature Gran % (Auto) 0.400, Neut % (Auto) 88.1 H, Lymph % (Auto) 8.8 L, Pima %(Auto) 2.7, Eos % (Auto) 0.0, Baso % (Auto) 0.0, Absolute Neuts (auto) 6.1, Absolute Lymphs (auto) 0.61 L, Nucleated RBC % 0, Sodium 140, Potassium 4.1, Chloride 107, Carbon Dioxide 30.0, Anion Gap 3 L, BUN 13, Creatinine 0.47 L, Estim Creat Clear Calc 64.83, Est GFR (MDRD) Af Amer 170, Est GFR (MDRD) Non-Af 141, BUN/Creatinine Ratio 27.8 H, Glucose 140 H, Calcium 8.6 Micro: Microbiology 07/20/23 03:15 Mucosa - Nose SARS-CoV-2, Influenza & RSV (PCR) - Final Rhythm Strip Rhythm Strip: Sinus Tach Rate: 128 Ectopy: None Physical Exam Narrative General: Alert, Oriented x3, Cooperative, No apparent distress HEENT: Atraumatic, PERRLA, EOMI, Normocephalic Oral: Moist Mucosa Neck: Supple, No JVD Lungs: Diminished, poor air movement, No rhonchi, wheeze, No rales Cardiovascular: Tachycardic, Regular Rhythm, Normal S1, Normal S2, No murmurs Abdomen: Soft, Non Tender, Non-Distended, No Hepato-splenomegaly Extremities: No edema, Capillary Refill Less than 3 Seconds Skin: No rashes, No breakdown Musculoskeletal: No Tenderness to Palpation of Joints or Extremities Neurological: No focal neurological deficits, Motor Exam 5/5 strength throughout, Sensory exam intact to light touch and pain Psych/Mental Status: Normal Affect, Appropriate Assessment & Plan Assessment/Plan (1) COPD with acute exacerbation: (2) Viral URI with cough: (3) Respiratory insufficiency: PLAN: Plan 1. Acute COPD exacerbation with chronic hypoxic respiratory failure/tobacco abuse/history of non-small cell lung cancer ?Continue with IV steroids as well as breathing treatments ? Will attempt to get a sputum culture though she has been on doxycycline for 24hours ? She feels short of breath but she is at her baseline oxygen requirements ? Will obtain an ambulatory pulse ox today just to gauge as to where we are at in her course ? She would like a Nicorette gum on discharge she has the patch and the lozenge at home ? She is status post right lobectomy for her lung cancer ? Discussed tobacco cessation 2. Essential HTN ? Blood pressure stable ? Continue with verapamil ? Will monitor make adjustments as necessary 3. Anxiety/depression ? Stable ? Continue with home medications 4. GERD ? Stable ? Continue with PPI DVT: Lovenox Charges/Coding Visit Charges Inpatient E&M: 51760 Subs Hosp L2 07/21/23 1022 <Electronically signed by Jan Bolanos MD> Cosigner Signature (if applicable): CC: ~ Signed [facility] Work Phone: 1(339) 953-757103-26-2024 Discharge summary Author Dallas Mena [facility] July 20, 2023 6:49am Note Date/Time July 20, 2023 3:0 9am [facility] Medical Records Department [address] [place] [address] Emergency Department Summary 07/20/23 MR#: [id number] Acct: [id number] Name: DENIA GONZALEZ Rep #:[id number] : 1955 68 From: Dallas Mena MD PCP: Dr. Yoseph Fall MD Status:AD M IN Location: [facility] [id number] HPI History of Present Illness Chief Complaint: Shortness of Breath Informant: patient Onset/Context/Timing Onset: Days Context: gradual Timing: Continuous Current Severity: Moderate Maximum Severity: Moderate Worsened by: Coughing Relieved by: Oxygen and Albuterol Associated Symptoms cough, fever and yellow sputum Chest Pain: Positive for None Narrative Narrative: 68-year-old female history of COPD she is on 2 and half liters oxygen at home all the time. She has nebulizer inhaler at home. She is on 15 mg of prednisoneevery other day. Recently developed URI symptoms beginning yesterday and today. Primary care physician cauterant and Zithromax Z-Dahlia which she started yesterday. Subjectively she has had a fever. Denies any vomiting or diarrhea. No leg pain or swelling. No chest pain. Denies any hemoptysis. Tonight breathing got worse and she called the squad to bring her in. PE Risk Factors: Negative for Cancer, OCP + Smoking + > 35, Prior DVT or PE, Recent immobilization, Recent surgery or Recent travel Prior similar symptoms: Yes Recent Illness/Hospitalization: No PFSH PFSH Home Medications albuterol sulfate 90 mcg/actuation aerosol inhaler (Ventolin HFA) 1 - 2 puff inhalation Q4H PRN PRN Bronchodialation 04/18/13 [History Last Taken 09/23/14] cyclobenzaprine 10 mg tablet 10 mg PO TID PRN PRN Pain 04/18/13 [History Last Taken 09/23/14 10 MG] fluticasone propionate 50 mcg/actuation nasal spray,suspension 1 spray DAILY 12/24/13 [History Last Taken 09/23/14] montelukast 10 mg tablet 10 mg PO DAILY 04/18/13 [History Last Taken 09/23/14 10 MG] omeprazole 20 mg capsule,delayed release 20 mg PO DAILY 04/18/13 [History Last Taken 09/23/14 20 MG] tiotropium bromide 18 mcg capsule with inhalation device (Spiriva with HandiHaler) 1 puff inhalation DAILY 04/18/13 [History Last Taken 09/23/14] verapamil 240 mg tablet,extended release 360 mg PO DAILY 04/18/13 [History Last Taken 09/23/14 360 MG] alprazolam 0.5 mg tablet 0.5 mg PO TID PRN PRN Anxiety ##30 05/04/13 [Rx Last Taken 09/23/14] Oxygen, Home [Home Oxygen] 2.5 lpm PRN PRN Dyspnea 10/22/13 [History Last Taken 09/23/14] sertraline 100 mg tablet 100 mg PO DAILY 10/22/13 [History Last Taken 09/23/14] fluticasone 500 mcg-salmeterol 50 mcg/dose blistr powdr for inhalation (Advair Diskus) 1 puff inhalation BID ##1 10/26/13 [Rx Last Taken 09/23/14] Ropinirole Hcl 0.25 mg PO QHS restless legs 09/23/14 [History Last Taken Unknown] hydrocodone 7.5 mg-acetaminophen 325 mg tablet 7.5 - 325 mg PO Q6H PRN PRN Pain 09/23/14 [History Last Taken Unknown] prednisone 10 mg tablet 10 mg PO PRN PRN FLARE UPS 04/03/15 [History Last Taken Unknown] guaifenesin 600 mg tablet, extended release 12 hr (Mucus Relief ER) 600 mg PO BID 05/13/16 [Rx Last Taken Unknown] ipratropium 0.5 mg-albuterol 3 mg (2.5 mg base)/3 mL nebulization soln 3 ml inhalation Q4HWA.RT ##30 05/13/16 [Rx Last Taken Unknown] prednisone 20 mg tablet 20 mg PO DAILY@0800 ##30 05/13/16 [Rx Last Taken Unknown] lorazepam 0.5 mg tablet 0.5 mg PO QHS #7 tabs 05/05/20 [Rx Last Taken Unknown] Allergy/AdvReac Type Severity Reaction Status Date / Time No Known Allergies Allergy Verified 07/20/23 02:54 Social History Smoking Status: Former smoker ROS ROS ED ROS Narrative Cough. Shortness of breath. Wheezing. Review of Systems ROS Unobtainable: Denies due to encephalopathy Constitutional Constitutional ED: Reports fever(s); Denies chills Eyes Eyes: Denies blurry vision ENT ENT ED: Denies ear pain Cardiovascular Cardiovascular: Denies chest pain Respiratory/Chest Respiratory/Chest: Reports cough and dyspnea Gastrointestinal Gastrointestinal: Denies abdominal pain, constipation, diarrhea, melena, nausea or vomiting Genitourinary Genitourinary ED: Denies dysuria or hematuria Musculoskeletal Musculoskeletal: Denies arthralgias Integumentary Denies abscess Neurologic Neurologic: Denies headache(s) Psychiatric Psychiatric: Denies anxiety Endocrine Endocrinology: Denies cold intolerance Hematologic/Lymphatic Hematologic/Lymphatic: Denies easy bleeding, easy bruising or lymphadenopathy Allergic/Immunologic Allergic/Immunologic ED: Denies mouth swelling, tongue swelling or urticaria EXAM Physical Exam Narrative Exam Narrative: 68-year-old female vital signs are temperature nine 9.8. Pulse ox is 93% on 2 and half liters which is her baseline. H EENT exam unremarkable. Neck nontender. No JVD. Lungs prolonged expiratory phase. Expiratory wheezing. Mague or rhonchi. Equal symmetrical. Increased respiratory effort. Heart tachycardic rate of 130 no murmur. Abdomen soft nontender. No peritoneal signs. Moving all 4 extremities. Nontender no edema. Back nontender. Neurologically she is awake and alert with no focal motor deficits. Answering questions following commands. Const Vital Signs: 07/20/23 02:55 07/20/23 02:59 07/20/23 02:59 Temperature 99.8 F H 99.8 F H Temperature Source Oral Oral Pulse Rate 134 H 136 H Respiratory Rate 22 H 25 H Respiratory Effort Short of Breath Respiratory Pattern Blood Pressure 141/88 H 141/88 H Blood Pressure Mean 105 105 Pulse Ox 93 92 Oxygen Delivery Method Nasal Cannula Nasal Cannula Nasal Cannula Oxygen Flow Rate (L/min) 2.5 2.5 2.5 07/20/23 03:12 07/20/23 03:20 07/20/23 03:11 Temperature 98.4 F Temperature Source Temporal Pulse Rate 123 H 125 H Respiratory Rate 24 H 22 H Respiratory Effort Respiratory Pattern Tachypnea Blood Pressure 159/80 H Blood Pressure Mean 106 Pulse Ox 93 Oxygen Delivery Method Nasal Cannula Nasal Cannula Oxygen Flow Rate (L/min) 2.5 3 07/20/23 04:03 07/20/23 04:03 Temperature 98.2 F Temperature Source Temporal Pulse Rate 124 H 124 H Respiratory Rate 22 H 24 H Respiratory Effort Respiratory Pattern Blood Pressure 151/82 H 154/81 H Blood Pressure Mean 105 105 Pulse Ox 93 93 Oxygen Delivery Method Nasal Cannula Nasal Cannula Oxygen Flow Rate (L/min) 3 3 Positive well nourished and well developed; Negative for cachectic, contracturesor unkempt General Appearance ED: well developed; Negative for unkempt, cachectic, contractures, NAD or pallor Nutritional Appearance: Negative for cachectic HEENT Reports moist mucous membranes atraumatic; Negative for trauma or tenderness Eyes PERRL and EOMs intact bilaterally General Eye ED: Negative for pale conjunctiva or scleral icterus Neck no lymphadenopathy, supple, no meningeal signs and no JVD General: Negative for tenderness Lymph Lymphatic: Negative for other Chest Wall Chest: Negative for other Resp No normal respiratory effort and No clear to auscultation bilaterally Resp Narrative: Prolonged expiratory phase. Increased respiratory effort. Tachycardic. Effort and Inspection: Negative for pain with movement Auscultation: wheezes; Negative for rales or rhonchi Cardio regular rhythm, S1 normal heart sound, S2 normal heart sound and no murmurs; Negative for regular rate Rate: tachycardic GI non-tender, non-distended and no masses Auscultation: normoactive bowel sounds Palpation: soft; Negative for tender, guarding or rebound tenderness present Back/Spine no CVA tenderness and normal to inspection General Back: Negative for CVA tenderness or tenderness Extremity normal to inspection General Extremety ED: Negative for edema or tenderness General Extremity: Negative for edema Neuro oriented x3 and CN's II-XII intact bilaterally Sensorium / Orientation: alert, oriented to person, oriented to place and oriented to time; Negative for orientation impaired, confused, lethargic or stuporous Speech: speech normal Motor Exam: strength 5/5 throughout Psych mental status grossly normal Appearance: Negative for unkempt Attitude: No agitated Mood & Affect: Negative for depressed, anxious or tearful Thought Process: normal thought process Skin no wounds and skin turgor normal General Skin Exam: Negative for jaundice or pallor Lesions: no lesions Rashes: no rashes Trauma: Negative for abrasion or laceration MDM MDM MDM Narrative Medical decision making narrative: 68-year-old female comes in for shortness of breath. URI symptoms. Viral illness versus pneumonia. COPD exacerbation. Rule out cardiac event. Patient be treated with both DuoNeb and albuterol aerosols. IV Solu-Medrol. Chest x-ray and labs are pending. Repeat exam at 3:40 AM. Patient's been given aerosols and IV Solu-Medrol. She is improving. But she still has expiratory wheezes. Repeat exam at 4 AM patient has improved from her initial presentation but she still wheezing and working to breathe. She remains tachycardic with her currentheart rates around 125. I think she would benefit from admission and repeat breathing treatments. I have the hospitalist on page. History & Record Review Discussion w/independent historian: Patient Additional record(s) reviewed:: Prior inpatient record, Prior outpatient record,Prior ED visit, Prior labs and No prior records Lab Data Attestation: I reviewed the patient's lab results. Lab results narrative: CBC unremarkable. White count 8. H&H 14 and 44. Platelets 233. Electrolytes show a gap of 5. Normal BUN and creatinine. Glucose 129. Respiratory viral studies are negative. Labs: Laboratory Results - last 24 hr 07/20/23 03:00 WBC 8.9 RBC 5.34 Hgb 14.1 Hct 44.2 MCV 82.8 MCH 26.4 L MCHC 31.9 L RDW Std Deviation 41.0 RDW Coeff of Augustin 13.6 Plt Count 233 MPV 9.9 Immature Gran % (Auto) 0.300 Neut % (Auto) 67.5 Lymph % (Auto) 23.7 Pima % (Auto) 7.6 Eos % (Auto) 0.6 Baso % (Auto) 0.3 Absolute Neuts (auto) 6.0 Absolute Lymphs (auto) 2.11 Nucleated RBC % 0 Sodium 139 Potassium 3.8 Chloride 101 Carbon Dioxide 33.0 H Anion Gap 5 BUN 13 Creatinine 0.70 Estim Creat Clear Calc 65.47 Est GFR (MDRD) Af Amer 108 Est GFR (MDRD) Non-Af 89 BUN/Creatinine Ratio 18.7 Glucose 129 H Calcium 8.8 Radiography Chest X-Ray - ED: 1 View, Read by ED Physician, Heart, Lungs, Mediastinum, Bony Structures, No Acute Disease and Chronic Changes Diagnostic Testing: Chest x-ray, portable, single view interpreted by myself shows normal cardiac silhouette. Chronic changes in both lungs consistent with COPD and scarring. Right chest cavity small pleural effusion versus pleural thickening. Consistentwith prior chest x-ray. Rhythm Strip Rhythm Strip: Sinus Tach Rate: 128 Ectopy: None EKG Initial EKG: Attestation: I personally reviewed and interpreted this EKG as follows: Interpretation: No Acute Injury Pattern and Sinus Tachycardia Comments: Sinus tachycardia rate of 128. No acute signs of OR or ischemia. Discharge Plan Triage Chief Complaint: Shortness of Breath ED Provider: Dallas Mena Dx/Rx/DC Orders Clinical Impression: Hypoxia, COPD (chronic obstructive pulmonary disease) Prescriptions: No Action cyclobenzaprine 10 MG tablet 10 mg PO TID PRN PRN (Reason: Pain) 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 omeprazole 20 MG capsule 20 mg PO DAILY Patient Comments: ACID REFLUX MEDICATION verapamil 240 MG tablet 360 mg PO DAILY Patient Comments: HEART MEDICATION montelukast 10 MG tablet 10 mg PO DAILY Patient Comments: ANTI-HISTAMINE albuterol sulfate [Ventolin HFA] 1 INHALER inhaler 1 - 2 puff inhalation Q4H PRN PRN (Reason: Bronchodialation) Patient Comments: COPD/SHORTNESS OF BREATH fluticasone propionate 1 SPRAY spray,suspension 1 spray NASAL DAILY Patient Comments: NASAL SPRAY TO HELP CONGESTION tiotropium bromide [Spiriva with HandiHaler] 1 PUFF inhaler 1 puff inhalation DAILY Patient Comments: INHALER FOR COPD alprazolam 0.5 MG tablet 0.5 mg PO TID PRN PRN (Reason: Anxiety) Qty: 30 0RF Patient Comments: anxiety sertraline 100 MG tablet 100 mg PO DAILY Patient Comments: mood enhancement Oxygen, Home [Home Oxygen] 2.5 lpm NASAL PRN PRN (Reason: Dyspnea) Patient Comments: oxygen fluticasone propion-salmeterol [Advair Diskus] 1 PUFF inhaler 1 puff inhalation BID Qty: 1 0RF Patient Comments: nasal congestion hydrocodone-acetaminophen 1 EACH tablet 7.5 - 325 mg PO Q6H PRN PRN (Reason: Pain) Patient Comments: pain Ropinirole Hcl 0.25 MG tablet 0.25 mg PO QHS Patient Comments: restless legs prednisone 10 MG tablet 10 mg PO PRN PRN (Reason: FLARE UPS) Patient Comments: steroid for inflammation ipratropium-albuterol 3 ML solution for nebulization 3 ml inhalation Q4HWA.RT Qty: 30 0RF guaifenesin [Mucus Relief ER] 600 MG tablet 600 mg PO BID 0RF prednisone 20 MG tablet 20 mg PO DAILY@0800 Qty: 30 0RF Rx Instructions: Take 2 tabs for 3 days, then one tab for 3 days, then 1/2 pill for 7 days, then stop. lorazepam 0.5 MG tablet 0.5 mg PO QHS Qty: 7 0RF Primary Care Provider: Yoseph Fall Referrals: Yoseph Fall MD [Primary Care Provider] - 1 Week if not improving Activity Restrictions/Additional Instructions: Plenty of fluids and rest. Finish your current antibiotic. Prednisone daily 40 mg a day for 10 days. Then you can restart your chronic steroid use. Follow-up with your doctor to ensure you are improving or return if worse. Absolutely long-term you have got to try to quit smoking. Use your inhalers and nebulizer as needed for your shortness of breath and wheezing. Disposition Disposition: Acute Care Hospital [facility] What to do if you have Problems For any increased pain, shortness of breath, bleeding, nausea or vomiting, chestpain, or any unexpected problems, contact your Primary Care Provider. Call [facility] ([phone]) or report to the closest Emergency Room. Call 911 if necessary. 07/20/23 0649 <Electronically signed by Dallas Mena MD> Cosigner Signature (if applicable): CC: Dr. Yoseph Fall MD ~ Signed [facility] Work Phone: 1(105) 311-314803-26-2024 Miscellaneous Notes* Telephone Encounter - Sanjana Baca MA - 07/20/2023 8:40 AM EDT Pt currently admitted into [facility] due to symptoms. Sanjana Baca MA * Telephone Encounter - Sanjana Baca MA - 07/19/2023 1:17 PM EDT Called and left message on patients Sinan BRASHER's voicemail to return call to the office and ask to speak with a FM triage nurse. Please update on message below from PCP. Sanjana Baca Ma * Telephone Encounter - Yoseph Fall MD - 07/19/2023 12:44 PM EDT Ok for Zpak as ordered Yoseph Fall MD * Telephone Encounter - Jennifer Hennessy LPN - 07/19/2023 8:33 AM EDT Pt's Sinan BRASHER, calls to reports pt has sx of chest congestion, cough x 4 days. DIL reports sx got worse over the weekend and last night pt's temp was 100.5. DIL reports pt is homebound because of anxiety so cannot come in for an appt. DIL reports pt usually will get a Zpak when she is having these sx. Please review and advise. Jennifer Hennessy LPN documented in this encounterCorey Hospital03-26-[facility]24 History and physical note Author José Smith [facility] July 20, 2023 4:55am Note Date/Time July 20, 2023 4:2 4am [facility] Medical Records Department [address] [place] [address] H&P Exam - Hospitalist 07/20/236 MR#: [id number] Acct: [id number] Name: DENIA GONZALEZ Rep #:[id number] : 1955 68 From: José Abebe DO PCP: Dr. Yoseph Fall MD Status:AD M IN Location: [facility] [id number] [facility] - General General Date of Admission: 07/20/23 Date of Service: 07/20/23 Chief Complaint: SOB, Wheezing and Cough with Green Sputum. HPI Narrative DENIA GONZALEZ, is a 68 F with a past medical history of essential hypertension, overweight; with BMI of 27.2 this admission, history of ongoing tobacco abuse; with subsequent steroid-dependent COPD, chronic hypoxic respiratory failure; on 2.5L NC, history of non-small cell lung cancer; s/p Right lobectomy, RLS, depression with anxiety, GERD and OA who presents to [facility] ER complaining of shortness of breath, wheezing and cough with green sputum. Ms. Gonzalez reports her symptoms began approximately 2 days prior to admission with a gradual onset of dyspnea on exertion that progressed to shortness of breath at rest. She had noticed rapidly developing upper respiratory infection symptoms and spite of her 50 mg of prednisone every other day, increased use of her nebulizers and a Z-Dahlia started by her primary care physician yesterday. Sheadmits to subjective fevers and worsening cough and wheezing that caused her to activate EMS. She denies associated chills, nausea, vomiting, leg pain, leg swelling, chest pain or hemoptysis. She admits her symptoms are similar to her previous COPD exacerbations. In the ER she was diagnosed with acute exacerbation of COPD with clinical evidence of omair-bg-hoxiihu hypoxic respiratory insufficiency likely due to recent viral URI in the setting of ongoing tobacco abuse and she was then admitted to the general medical floor forongoing care for stay that is expected to be greater than 48 hours. [facility] Home Medications albuterol sulfate 90 mcg/actuation aerosol inhaler (Ventolin HFA) 1 - 2 puff inhalation Q4H PRN PRN Bronchodialation 04/18/13 [History Last Taken 09/23/14] cyclobenzaprine 10 mg tablet 10 mg PO Q12H pain 04/18/13 [History Last Taken 09/23/14 10 MG] fluticasone propionate 50 mcg/actuation nasal spray,suspension 1 spray intranasal DAILY nasal congestion 04/18/13 [History Last Taken 09/23/14] montelukast 10 mg tablet 10 mg PO DAILY allergies 04/18/13 [History Last Taken 09/23/14 10 MG] omeprazole 20 mg capsule,delayed release 20 mg PO DAILY heart burn 04/18/13 [History Last Taken 09/23/14 20 MG] tiotropium bromide 18 mcg capsule with inhalation device (Spiriva with HandiHaler) 1 puff inhalation DAILY wheezing 04/18/13 [History Last Taken 09/23/14] verapamil 240 mg tablet,extended release 360 mg PO DAILY heart 04/18/13 [History Last Taken 09/23/14 360 MG] Oxygen, Home [Home Oxygen] 2.5 lpm PRN PRN Dyspnea 10/22/13 [History Last Taken 09/23/14] sertraline 100 mg tablet 100 mg PO DAILY insomina 10/22/13 [History Last Taken 09/23/14] fluticasone 500 mcg-salmeterol 50 mcg/dose blistr powdr for inhalation (Advair Diskus) 1 puff inhalation BID shortness of breath ##1 10/26/13 [Rx Last Taken 09/23/14] Ropinirole Hcl 0.25 mg PO QHS restless legs 09/23/14 [History Last Taken Unknown] hydrocodone 7.5 mg-acetaminophen 325 mg tablet 7.5 - 325 mg PO Q6H PRN PRN Pain 09/23/14 [History Last Taken Unknown] prednisone 10 mg tablet 15 mg PO PRN PRN FLARE UPS 04/03/15 [History Last Taken Unknown] guaifenesin 600 mg tablet, extended release 12 hr (Mucus Relief ER) 600 mg PO BID congestion 05/13/16 [Rx Last Taken Unknown] ipratropium 0.5 mg-albuterol 3 mg (2.5 mg base)/3 mL nebulization soln 3 ml inhalation Q4HWA.RT wheezing ##30 05/13/16 [Rx Last Taken Unknown] lorazepam 0.5 mg tablet 0.5 mg PO QHS anxiety #7 tabs 05/05/20 [Rx Last Taken Unknown] Allergy/AdvReac Type Severity Reaction Status Date / Time No Known Allergies Allergy Verified 07/20/23 02:54 Social History Smoking Status: Former smoker ROS ROS Narrative Review of systems: General: Patient admits to subjective fever but denies chills. HENT: Denies headache, denies stuffy nose, denies sore throat, denies ear pain EYES: Denies changes in vision or discharge from eyes. Resp: Patient admits to dyspnea on exertion that progressed to shortness of breath at rest with wheezing and cough productive of sputum as per HPI. Cardiac: Denies chest pain or palpitations. GI: Denies abdominal pain, denies changes in bowel, denies nausea or vomiting. : Denies changes in urination Extremity: Denies swelling Musculoskeletal: Feels somewhat generally weak and unwell but denies arthralgiasor myalgias. Neuro: Patient denies headache, paresthesias or focal neurologic weakness. Heme: Denies any bleeding or bruising Skin: Denies rashes Psychiatric: No complaints voiced related to uncontrolled depression or anxiety. Endocrine: No polyuria, polydipsia or polyphagia. The rest of the 14 point ROS was negative except for positives in HPI. Vital Signs Vital Signs Vital Signs: 07/20/23 02:55 07/20/23 02:59 07/20/23 02:59 Temperature 99.8 F H 99.8 F H Temperature Source Oral Oral Pulse Rate 134 H 136 H Respiratory Rate 22 H 25 H Respiratory Effort Short of Breath Respiratory Pattern Blood Pressure 141/88 H 141/88 H Blood Pressure Mean 105 105 Pulse Ox 93 92 Oxygen Delivery Method Nasal Cannula Nasal Cannula Nasal Cannula Oxygen Flow Rate (L/min) 2.5 2.5 2.5 07/20/23 03:12 07/20/23 03:20 07/20/23 03:11 Temperature 98.4 F Temperature Source Temporal Pulse Rate 123 H 125 H Respiratory Rate 24 H 22 H Respiratory Effort Respiratory Pattern Tachypnea Blood Pressure 159/80 H Blood Pressure Mean 106 Pulse Ox 93 Oxygen Delivery Method Nasal Cannula Nasal Cannula Oxygen Flow Rate (L/min) 2.5 3 07/20/23 04:03 07/20/23 04:03 Temperature 98.2 F Temperature Source Temporal Pulse Rate 124 H 124 H Respiratory Rate 22 H 24 H Respiratory Effort Respiratory Pattern Blood Pressure 151/82 H 154/81 H Blood Pressure Mean 105 105 Pulse Ox 93 93 Oxygen Delivery Method Nasal Cannula Nasal Cannula Oxygen Flow Rate (L/min) 3 3 Weight Weight: 158 lb 11.725 oz Body Mass Index (BMI) 27.2 Physical Exam Const alert, oriented x3 and average body habitus Constitutional Narrative: Patient noted to have mildly labored respirations with expiratory wheezing. General Appearance: cooperative HEENT normocephalic, head/scalp atraumatic, hearing grossly normal bilaterally and moist oral mucous membranes Eyes PERRL and EOMs intact bilaterally Neck no lymphadenopathy and supple Resp Resp Narrative: Diminished breath sounds throughout with expiratory wheezing and prolonged expiratory phase. Auscultation: wheezes Cardio regular rate and regular rhythm Cardio Narrative: Tachycardia regular at approximately 130 bpm. GI normal to inspection, nondistended, normoactive bowel sounds, soft to palpation,non-tender and non-distended Extremity normal to inspection, full ROM and no clubbing, cyanosis or edema Skin Skin Narrative: Patient has no evidence of rash or abscess at this time. Neuro oriented x3, CN's II-XII intact bilaterally, moves all extremities and no focal motor deficits Sensorium / Orientation: awake, alert, oriented to person, oriented to place andoriented to time Speech: speech normal Motor Exam: strength 5/5 throughout Psych affect normal Results Medical Records Data Attestation: I reviewed the patient's medical records Lab / Micro Data Attestation: I reviewed the patient's lab results. 07/20/23 03:00 07/20/23 03:00 Labs: Laboratory Results - last 24 hr 07/20/23 03:00: WBC 8.9, RBC 5.34, Hgb 14.1, Hct 44.2, MCV 82.8, MCH 26.4 L, MCHC 31.9 L, RDW Std Deviation 41.0, RDW Coeff of Augustni 13.6, Plt Count 233, MPV 9.9, Immature Gran % (Auto) 0.300, Neut % (Auto) 67.5, Lymph % (Auto) 23.7, [place]% (Auto) 7.6, Eos % (Auto) 0.6, Baso % (Auto) 0.3, Absolute Neuts (auto) 6.0, Absolute Lymphs (auto) 2.11, Nucleated RBC % 0, Sodium 139, Potassium 3.8, Chloride 101, Carbon Dioxide 33.0 H, Anion Gap 5, BUN 13, Creatinine 0.70, EstimCreat Clear Calc 65.47, Est GFR (MDRD) Af Amer 108, Est GFR (MDRD) Non-Af 89, BUN/Creatinine Ratio 18.7, Glucose 129 H, Calcium 8.8 Micro: Microbiology 07/20/23 03:15 Mucosa - Nose SARS-CoV-2, Influenza & RSV (PCR) - Final Rhythm Strip Rhythm Strip: Sinus Tach Rate: 128 Ectopy: None Imaging Chest x-ray negative for infiltrate or other acute pathologic change positive for signs of emphysema and chronic scarring. Assessment & Plan Assessment/Plan (1) COPD with acute exacerbation: (2) Viral URI with cough: (3) Respiratory insufficiency: PLAN: Plan 1. Acute exacerbation of COPD in the setting of ongoing tobacco abuse - Admit to general medical floor. Continue IV Solu-Medrol and begin IV doxycycline plusscheduled and as needed nebulizers. Give Tylenol as needed for niwy-pt-fkatyjdq(level 1- 5/10) pain or fever. Continue Percocet prn for severe (level 6-10/10) pain. Tobacco cessation will be strongly encouraged with nicotine patch offeredto control cravings. 2. Viral URI likely triggering #1 - Check viral respiratory panel and placed oncontact and droplet precautions until confirmed negative. 3. Beoxs-rn-rgicmle hypoxic respiratory insufficiency arising from #1 & #2 - Wean supplemental oxygen as tolerated back to baseline levels. 4. Essential hypertension - Continue home regimen plus give as needed IV hydralazine for systolic blood pressure greater than 160 mmHg. 5. Overweight; with BMI of 27.2 this admission - Weight loss will be recommended. Check TSH. 6. History of non-small cell lung cancer; s/p Right lobectomy - Noted with no signs of recurrence on chest x-ray this admission. 7. RLS - Continue scheduled Requip nightly as previous. 8. Depression with anxiety - Resume current medication regimen. 9. GERD - Continue PPI. 10. OA - Stable. Give Tylenol as needed. 11. DVT prophylaxis - Give Lovenox 40 mg subcu daily. Total time: Approximately 55 minutes. Charges/Coding Visit Charges Inpatient E&M: 33375 Init Hosp L2 07/20/23 5366 <Electronically signed by José Cunningham DO> Cosigner Signature (if applicable): CC: Dr. José Cunningham DO; Dr. Yoseph Fall MD~ Signed [facility] Work Phone: 1([phone]) 213-824203-04-2024 Miscellaneous Notes* Telephone Encounter - Yoseph Fall MD - 06/28/2023 3:59 PM EST OK to refill as ordered Yoseph Fall MD documented in this encounterCorey Hospital02-22-2024 Miscellaneous Notes* Telephone Encounter - Naima Haines Ma - 06/17/2023 11:12 AM EST Faxed. Naima Haines Ma * Telephone Encounter - Naima Haines Ma - 06/17/2023 9:58 AM EST Type of letter/form/fax request - Medical Necessity-incontinence supplies Form received from fax on 1 floor and placed on MD desk (Dr. Fall) for completion. Completed form needs to be faxed to [facility] at [phone]. Route to [place] when form completed for processing documented in this encounterCorey Hospital02-21-2024 Miscellaneous Notes* Telephone Encounter - Meenu Gurrola, KAREN - 06/16/2023 1:00 PM EST Called and notified pt of change and that med is already at the pharmacy. * Telephone Encounter - Yoseph Fall MD - 06/15/2023 5:06 PM EST New Rx sent in Yoseph Fall MD * Telephone Encounter - Ban Villafana LPN - 06/15/2023 8:48 AM EST Tiotropium (spirvia) was denied. Pt needs to try formulary with is tiotropium bromide 18mcg inhaled capsules. Did not review with pt yet. * Telephone Encounter - Ban Villafana LPN - 06/15/2023 8:47 AM EST Why did we deny your request? We denied this request under Medicare Part D because: The information received from your prescriber did not confirm that at least one of the other drugs available on the formulary to treat the same diagnosis or condition have been tried and according to the prescriber, the patient experienced inadequate efficacy OR significant intolerance. Examples of other drug(s) on your Plan's formulary include tiotropium bromide 18 mcg inhaled capsules. The drug requested is not on your Plan's formulary, which is their list of covered drugs. The Centers for Medicare and Medicaid Services (CMS) allow a member to receive a drug that is eligible for coverage under Medicare Part D that is not on their Plan's formulary when other drugs available on the Plan's formulary that treat the same diagnosis or condition have been tried first and according to the prescriber, the patient experienced inadequate efficacy or significant intolerance, or if the drugs on formulary were not tried but would be less effective than the requested drug in treating the patient's diagnosis or would be likely to cause an allergy,adverse reaction, or other harm to the patient. After a review of your Plan's formulary and the informationreceived from your prescriber, we cannot approve coverage of the requested drug. * Telephone Encounter - Ban Villafana LPN - 06/14/2023 4:37 PM EST [employer] [place] cmpleted for tiotropium spirva DENIA GONZALEZ ([place]: [id number]) - [id number] Spiriva HandiHaler 18MCG capsules Status: PA Request Created: June 11, 2023 [id number] Sent: June 14, 2023 documented in this encounterCorey Hospital02-20-2024 Miscellaneous Notes* Telephone Encounter - Sanjana Baca Ma - 06/15/2023 5:08 PM EST Pt called and notified that Rx has been sent in, verbalized understanding. Sanjana Baca Ma * Telephone Encounter - Yoseph Fall MD - 06/15/2023 4:56 PM EST OK for nystatin as ordered Yoseph Fall MD * Telephone Encounter - Cami Louie RN - 06/15/2023 1:37 PM EST Patient reports she has thrush in her mouth, on her tongue to her throat, coated with white. No pain. Reports she gets thrush from her inhaler, and pcp sends Rx to [facility]. Reports she is housebound and cannot come in to see pcp. Pended. Please call pt with reply. documented in this encounterCorey Hospital02-16-2024 Miscellaneous Notes* Telephone Encounter - Yoseph Fall MD - 06/11/2023 3:09 PM EST OK to refill as ordered Yoseph Fall MD * Telephone Encounter - Brynn Watson LPN - 06/11/2023 3:01 PM EST Patient daughter calling pharmacy told her office needs to clarify rx for Spiriva computer shows rxwas sent for 810. Pharmacy is asking for new rx to be sent please. Pending rx needs refill number completed. Please advise Patient has been identified by name and date of : daughter phones for refill(s): Requested Prescriptions Pending Prescriptions Disp Refills tiotropium (SPIRIVA WITH HANDIHALER) 18 mcg inhalation capsule 30 capsule Sig: inhale 1 capsule by mouth as directed once daily Date of last office visit in primary care: 02/19/2023 Date of next office visit in primary care: 08/23/2023 Please advise. Thank you. Brynn Watson LPN. documented in this encounterCorey Hospital12-05-2023 Miscellaneous Notes* Telephone Encounter - Padmini Abbott RN - 03/30/2023 4:17 PM EST Pt's significant other, Mike Gregg calling. Requesting PCP office to fax orders for pt's nebulizer ,compressor and accessories to [facility] at FAX #: [phone], along with recent OV note. States pt receives other equipment from them and they would like to use their services. States they have not heard from [facility] when orders were originally faxed to them. Faxed as requested. Padmini Abbott RN documented in this encounterCorey Hospital11-22-2023 Miscellaneous Notes* Telephone Encounter - Roxanna Tineo LPN - 03/17/2023 1:21 PM EST Patient is completely out of medication. Patient has been identified by name and date of : Yes Patient phones for refill(s): Requested Prescriptions Pending Prescriptions Disp Refills fluticasone-salmeterol (ADVAIR DISKUS) 500-50 mcg/dose dsdv 3 Each 3 Sig: Inhale 1 Puff as instructed two times a day. Rinse and gargle mouth with water after use. Date of last office visit in primary care: 02/19/2023 Date of next office visit in primary care: 05/24/2023 Last 2 Encounter Wt Readings: Date: Wt: 02/19/2023 73.5 kg (162 lb) 11/13/2022 78 kg (172 lb) Previous labs/tests for medication: Not applicable Please advise. Thank you. Roxanna Tineo LPN. documented in this encounterCorey Hospital10-27-2023 Instructions* Patient Instructions* Sanjana Baca Ma - 02/19/2023 2:31 PM EDT Check with Construction And Maintenance Inspector on RSV vaccine. documented in this encounterCorey Hospital10-27-2023 History of Present illness Narrative* Yoseph Fall MD - 02/19/2023 2:00 PM EDT Chief Complaint Patient presents with: F/U 3 Month HPI Denia Gonzalez is a 67 year old female who presents here today for 3 month follow up. Here today for a 3 month follow up. Pt did not complete Urine Tox screen. Daughter in law is her Caregiver. Smoker, has nicotine patches and lozenges to use. States she still has some at home. Admits to still smoking some. Reports this varies some day very little other more. On average 10-15 cigarettes. Boyfriend and her are trying to quit together. GERD: Sx doing well on Prilosec 20 mg daily. GERRY/Depression: Overall controlled still has some bad days. Reports symptoms make it very hard to leave her home, worse since Covid hit. No longer driving. Taking Zoloft 100 mg 2 pills daily and Requip 0.25 mg daily. Was previous on Xanax in the past but this was d/c due to being on chronic pain medication. Discussed Buspar but she would prefer not to add medication at this time. Pain: Chronic pain that pt is currently being weaned down on her [place] 5-325 mg, concerned about going any lower as she doesn't think her pain will be controlled. She is taking [place] 5-325 mg 1 pill bid prn, getting #33/month, and Flexeril 10 mg BID prn. [place] was decreased last visit from #35/month to #33/month. She says she has taken more early in the month and then it may not last until the end. HTN: Checks BP at home, denies any chest pains, dizziness, or Unusual SOB. Taking Losartan 50 mg half pill PRN if BP is orve 152/90 and taking Verapamil 240 mg once daily. COPD: Following with Dr. Guzmán, Pulmonology. Taking Singulair 10 mg once daily, Prednisone 20 mg prn, Albuterol inhaler prn, Spiriva 18 mcg once daily and Advair 1 puff po bid. Uses oxygen 2.5 L. - Receives Covid shots at home, has had 4 shots total. Agreeable to Flu shot today. Reports her Construction And Maintenance Inspector, may be able to give her the RSV vaccine. Past medical history, appointments, medications, allergies reviewed. Previous Medical History PAST MEDICAL HISTORY Diagnosis Date Closed fracture of unspecified part of humerus Arm fracture Dysthymic disorder Depression (non-psychotic) Essential hypertension, benign 04/26/2006 Generalized anxiety disorder Anxiety, Generalized Generalized osteoarthrosis, involving multiple sites Osteoarthritis - renee. hands, knees Malignant neoplasm of bronchus and lung, unspecified site 04/26/2003 Lung cancer OR (myocardial infarction) (HCC) 10-10 taken to [facility] heart stopped Obstructive chronic bronchitis with exacerbation (HCC) COPD Other abnormal Papanicolaou smear of cervix and cervical HPV(795.09) 04/26/2002 h/o abnormal paps, had colposcopy vs. cone, hasn't had any paps since dx of lung CA, but her last pap 4+ yrs ago was abnormal per pt Other and unspecified alcohol dependence, unspecified drinking behavior ETOH depend. syn. PMH - PAST MEDICAL HISTORY OF FX right foot Previous Surgical History PAST SURGICAL HISTORY Procedure Laterality Date CONIZATION CERVIX W/WO D&C RPR ELTRD EXC 2003 Dr. Danis BRYSON ERCP 06/22/2016 choledocholithiasis, cholangitis LAPS SURG CHOLECYSTECTOMY W/CHOLANGIOGRAPHY 08/06/2016 PAST SURGICAL HISTORY OF 1987 polyp removed from throat PAST SURGICAL HISTORY OF 1990 ectopic - took tube PAST SURGICAL HISTORY OF 1990 exploratory abd lap -? may have had ovary removed - pt told she cannot have children anymore PICC LINE INSERT/CONSULT 06/26/2016 PULMONARY FUNCTION TEST 08/14/04 RMVL LUNG OTHER THAN PNEUMONECTOMY 1 LOBE LOBECT 04/22/2004 right upper lobectomy Family History FAMILY HISTORY Problem Relation Age of Onset Cancer Mother : Throat, UTERINE Hypertension Mother Cancer Father Stomach CA Heart Father AAA Hypertension Father Heart Paternal Grandmother Breast Cancer Paternal Grandmother Heart Paternal Grandfather Patient Allergies ALLERGIES No Known Allergies Current Medications Current Outpatient Medications on File Prior to Visit Medication Sig fluticasone-salmeterol (ADVAIR DISKUS) 500-50 mcg/dose dsdv Inhale 1 Puff as instructed twice daily. Rinse and gargle mouth with water after use. rOPINIRole (REQUIP) 0.25 mg tablet Take 1 tablet by mouth daily at bedtime. Cholecalciferol, Vitamin D3, 50 mcg (2,000 unit) cap Take 1 capsule by mouth once daily. verapamil SR (CALAN SR) 240 mg CR tablet Take 1 tablet by mouth daily at bedtime. predniSONE (DELTASONE) 20 mg tablet Take 2 tablets by mouth once daily. nicotine (NICODERM) 7 mg/24 hr Apply 1 Patch as directed every 24 hours. Nicotine Polacrilex [address] 1 Lozenge between cheek and gum as needed. nicotine polacrilex (NICORETTE) 2 mg gum Take 1 Each by mouth every 2 hours as needed. HYDROcodone-acetaminophen (NORCO) 5-325 mg per tablet Take 1 tablet by mouth twice daily as needed for pain for up to 30 days. Do not start before January 11, 2023. HYDROcodone-acetaminophen (NORCO) 5-325 mg per tablet Take 1 tablet by mouth twice daily as needed for pain for up to 30 days. Do not start before December 13, 2022. HYDROcodone-acetaminophen (NORCO) 5-325 mg per tablet Take 1 tablet by mouth twice daily as needed for pain for up to 30 days. cyclobenzaprine (FLEXERIL) 10 mg tablet Take 1 tablet by mouth twice daily as needed for muscle spasm. sertraline (ZOLOFT) 100 mg tablet Take 2 tablets by mouth once daily. omeprazole (PRILOSEC) 20 mg capsule Take 1 capsule by mouth once daily. ON AN EMPTY STOMACH montelukast (SINGULAIR) 10 mg tablet ONE -TWO TABS Q 4HOURS PRN predniSONE (DELTASONE) 10 mg tablet Take 1 tablet by mouth every other day. ipratropium-albuterol (DUONEB) 0.5 mg-3 mg(2.5 mg base)/3 mL nebu inhale 1 ampule via nebulizer every 4 hours if needed for wheezing. Use over 5 to 15 minutes tiotropium (SPIRIVA WITH HANDIHALER) 18 mcg inhalation capsule inhale 1 capsule by mouth as directed once daily HYDROcodone-acetaminophen (NORCO) 5-325 mg per tablet Take 1 tablet by mouth twice daily as needed for pain for up to 30 days. Do not start before February 17, 2022. albuterol HFA (VENTOLIN HFA) 90 mcg/actuation inhaler Inhale 2 Puffs as instructed every 4 hours asneeded. PULSE OXIMETER CONTEC Use as directed to check oxygen saturation level omeprazole (PRILOSEC) 20 mg capsule TAKE 1 CAPSULE EVERY DAY on an empty stomach montelukast (SINGULAIR) 10 mg tablet Take 1 tablet by mouth once daily. fluticasone (FLONASE) 50 mcg/actuation nasal spray use 2 sprays in each nostril daily. Rinse mouth after use ammonium lactate (AMLACTIN) 12 % lotion Apply 1 application to affected area as needed for Dry Skin. losartan (COZAAR) 50 mg tablet Take 0.5 tablets by mouth once daily. Nicotine Polacrilex [address] 4 mg between cheek and gum as needed. nicotine polacrilex (NICORETTE) 2 mg gum Take 1 Each by mouth every 2 hours as needed. Nebulizer and Compressor For Neb Use as directed. Dx: COPD J44.9 Nebulizer Accessories [facility] Mask and supplies as needed Ozgnarblljgno-EM-jbbnLGAadgo (MUCINEX FAST-MAX CONGEST-COUGH) 2.5-5-100 mg/5 mL liqd Take 10 mL by mouth three times daily as needed. OXYGEN, HOME THERAPY, 2.5 L/min by Nasal Cannula route continuous. Use as directred Disposable Gloves (DISPOSABLE LATEX-FREE GLOVES) [facility] 1 Box once every month. ICD 10: M15.9, J44.9,M54.40 Incontinence Pad, Liner, Disp (POISE PADS) pads Use pads as directed. Dx: N39.46 COMPOUNDED PRESCRIPTION BLOOD PRESSURE CUFF FOR HOME USE. DX: HYPERTENSION I10. AUTOMATIC CUFF. COMPOUNDED PRESCRIPTION Blood pressure monitor for home use. Dx: I10 OXYGEN-AIR DELIVERY SYSTEMS DEVICE as necessary No current facility-administered medications on file prior to visit. Social History Social History Tobacco Use Smoking status: Every Day Packs/day: 1.00 Years: 42.00 Additional pack years: 0.00 Total pack years: 42.00 Types: Cigarettes Start date: 1969 Smokeless tobacco: Never Vaping Use Vaping Use: Never used Substance Use Topics Alcohol use: Yes Comment: Nothing since 03/2012. Drug use: No EXAM: BP 130/78 (BP Site: Left Arm, BP Position: Sitting, BP Cuff Size: Regular Adult) Pulse 100 Resp20 Wt 73.5 kg (162 lb) LMP 02/27/2005 BMI 28.70 kg/m General Appearance: Well appearing, alert, in no acute distress, well-hydrated, well nourished.. Lungs: Lungs with mild exp wheezing diffusely Heart: RRR without murmur, gallop, or rubs. No ectopy. Health Maintenance List BP Controlled (<130/80) Never done Alpha-1 Antitrypsin Deficiency Screening Never done Shingrix Vaccine(1 of 2) Never done RSV Vaccine(1 - 1-dose 60+ series) Never done Pap Testing due on 10/24/2015 Mammogram Screening due on 10/16/2016 Bone Density Screening due on 2020 Influenza Vaccine(1) due on 12/25/2022 Covid-19 Vaccine(5 - 2022- season) due on 12/25/2022 DTaP,Tdap,Td Vaccine(2 - Td or Tdap) due on 10/25/2023 Annual PCP Team Chronic Disease Visit due on 11/14/2023 Colorectal Cancer Screening due on 01/25/2024 Lipid Screening due on 02/09/2024 Diabetes Screening due on 07/12/2024 Spirometry Completed Advance Directive Discussion Completed Hepatitis C Screening Completed Pneumococcal Vaccine: 65+ Completed Data reviewed None ASSESSMENT/PLAN: 1. Chronic low back pain with sciatica, sciatica laterality unspecified, unspecified back pain laterality - ICD9: 724.2, 724.3, 338.29, ICD10: M54.40, G89.29 (primary diagnosis) Chronic low back pain - Stay at same dosage - check urine test - HYDROCODONE 5 MG-ACETAMINOPHEN 325 MG TABLET - HYDROCODONE 5 MG-ACETAMINOPHEN 325 MG TABLET - HYDROCODONE 5 MG-ACETAMINOPHEN 325 MG TABLET - PAIN PANEL, UR QUANT 2. Generalized osteoarthrosis, involving multiple sites - ICD9: 715.09, ICD10: M15.9 - As noted above - PAIN PANEL, UR QUANT 3. Generalized anxiety disorder - ICD9: 300.02, ICD10: F41.1 - Discussed adding buspar, pt declined - Continue current medication regimen. 4. Depression, unspecified depression type - ICD9: 311, ICD10: F32.A - As noted above - Continue current medication regimen. 5. Essential hypertension, benign - ICD9: 401.1, ICD10: I10 - Controlled - Continue current medications - Recommend home blood pressure monitoring, to bring results to next visit - Encouraged sodium restriction, DASH or Mediterranean diet - Recommend regular aerobic exercise - CBC + DIFF - BASIC METABOLIC PNL - LIPID PANEL, NONFASTING 6. Elevated glucose - ICD9: 790.29, ICD10: R73.09 - check labs - HGB A1C - BASIC METABOLIC PNL 7. Stage 3 severe COPD by GOLD classification ([facility]) - ICD9: 496, ICD10: J44.9 - Continue current medication regimen. - Send Nebulizer supplies to [facility] 8. Gastroesophageal reflux disease, unspecified whether esophagitis present - ICD9: 530.81, ICD10: K21.9 - Stable - Continue current medication regimen. 9. Chronic obstructive pulmonary disease, unspecified COPD type (HCC) - ICD9: 496, ICD10: J44.9 - Continue current medication regimen. - NEBULIZER AND COMPRESSOR - NEBULIZER ACCESSORIES MISC 10. Uncomplicated asthma, unspecified asthma severity, unspecified whether persistent - ICD9: 493.90, ICD10: J45.909 - NEBULIZER AND COMPRESSOR - NEBULIZER ACCESSORIES MISC 11. Tobacco use disorder - ICD9: 305.1, ICD10: F17.200 - Cessation encouraged. - Physiologic and physical aspects of tobacco addiction as well as strategies for quitting were discussed. - Counseling was given focusing on the harmful effects of this addiction especially given the patient's medical condition(s) which will be worsened because of the chemicals in tobacco. 12. Need for influenza vaccination - ICD9: V04.81, ICD10: Z23 - INFLUENZA VACCINE, PRSV FREE, AGE 65+ YR, HIGH DOSE, QUADRIVALENT (FLUZONE HIGH-DOSE) - Receive in office today 13. Encounter for medication monitoring - ICD9: V58.83, ICD10: Z51.81 - Obtain today at lab - PAIN PANEL, UR QUANT - TOX SCREEN ROUT UR 3 mo f/u phone visit I agree with the Chief Complaint, ROS, and Past Histories independently gathered by the clinical shipping support and the remaining scribed note accurately describes my personal service to the patient. Medical Decision Making: Problems: Moderate: 2+ stable chronic illnesses Data: Unique test(s) ordered: 3+ Risk: Moderate: Drug management Medical Decision Making Level: 4 - Moderate Yoseph Fall MD The documentation for this note was completed by Sanjana Baca Ma acting as scribe for Yoseph Fall MD. February 19, 2023 2:33 PM. Sanjana Baca Ma documented in this encounterCorey [facility]09-22-2023 Miscellaneous Notes* Telephone Encounter - Nelson Robert APRN.CNP - 01/15/2023 12:03 PM EDT The following approved medication requests have been transmitted electronically. Requested Prescriptions Pending Prescriptions Disp Refills fluticasone-salmeterol (ADVAIR DISKUS) 500-50 mcg/dose dsdv 3 Each 3 Sig: Inhale 1 Puff as instructed twice daily. Rinse and gargle mouth with water after use. Nelson Robert APRN.CNP * Telephone Encounter - Sukhi Marrero RN - 01/15/2023 11:55 AM EDT Patient has been identified by name and date of : Yes, Sukhi Marrero RN Date 01/15/2023 Time 11:56 am Significant other phones for refill(s): Requested Prescriptions Pending Prescriptions Disp Refills fluticasone-salmeterol (ADVAIR DISKUS) 500-50 mcg/dose dsdv 3 Each 3 Sig: Inhale 1 Puff as instructed twice daily. Rinse and gargle mouth with water after use. Date of last office visit with pcp: 11/13/2022 Future appt: 02/12/2023 Last 2 Encounter Wt Readings: Date: Wt: 11/13/2022 78 kg (172 lb) 08/07/2022 78.5 kg (173 lb) Previous labs/tests for medication: Blood Pressure: BUN (mg/dL) Date Value 07/12/2021 19 05/11/2018 12 Sodium (mmol/L) Date Value 07/12/2021 136 05/11/2018 139 Last 1 Encounter BP Readings: Date: BP: 11/13/2022 134/76 Liver Function: ALT (U/L) Date Value 07/12/2021 11 05/11/2018 12 AST (U/L) Date Value 07/12/2021 15 05/11/2018 12 Please advise. Thank you. Sukhi Marrero, RN documented in this encounterCorey Hospital09-05-2023 Miscellaneous Notes* Telephone Encounter - Nelson Robert APRN.CNP - 12/29/2022 12:53 PM EDT The following approved medication requests have been transmitted electronically. Requested Prescriptions Pending Prescriptions Disp Refills rOPINIRole (REQUIP) 0.25 mg tablet 90 tablet 3 Sig: Take 1 tablet by mouth daily at bedtime. Cholecalciferol, Vitamin D3, 50 mcg (2,000 unit) cap 30 capsule 5 Sig: Take 1 capsule by mouth once daily. verapamil SR (CALAN SR) 240 mg CR tablet 210 tablet 1 Sig: Take 1 tablet by mouth daily at bedtime. Nelson Robert APRN.CNP * Telephone Encounter - Mercedez Geronimo - 12/29/2022 12:32 PM EDT Pharmacy verified in [facility] Patient has been identified by name and date of : Yes Patient aware RX will be sent to pharmacy. No need to notify patient. Patient phones for refill(s): Requested Prescriptions Pending Prescriptions Disp Refills rOPINIRole (REQUIP) 0.25 mg tablet 90 tablet 3 Sig: Take 1 tablet by mouth daily at bedtime. Cholecalciferol, Vitamin D3, 50 mcg (2,000 unit) cap 30 capsule 5 Sig: Take 1 capsule by mouth once daily. verapamil SR (CALAN SR) 240 mg CR tablet 210 tablet 1 Sig: Take 1 tablet by mouth daily at bedtime. Date of last office visit : 07/17/2021 Date of next office visit : 02/12/2023 Last 2 Encounter Wt Readings: Date: Wt: 11/13/2022 78 kg (172 lb) 08/07/2022 78.5 kg (173 lb) Not applicable Please advise. Mercedez Carrillo documented in this encounterCorey Hospital08-17-2023 Miscellaneous Notes* Telephone Encounter - Meenu Hanks LPN - 12/10/2022 3:29 PM EDT Pt notfied Meenu Hanks LPN * Telephone Encounter - Yoseph Fall MD - 12/10/2022 2:38 PM EDT Order filed Yoseph Fall MD * Telephone Encounter - Brynn Watson LPN - 12/10/2022 12:09 PM EDT Patient daughter calling mother had sent to her to fruit picker machine operator stool sample, no order in computer. Computer shows at last office visit Dr was asking patient if she would do IFOBT and no order was put in the computer. Pending order needs diagnosis. Call patient when order in place so can fruit picker machine operator kit. Please advise documented in this encounterCorey Hospital07-14-2023 Miscellaneous Notes* Telephone Encounter - Nelson Robert APRN.CNP - 11/06/2022 12:38 PM EDT The following approved medication requests have been transmitted electronically. Requested Prescriptions Pending Prescriptions Disp Refills cyclobenzaprine (FLEXERIL) 10 mg tablet 60 tablet 5 Sig: Take 1 tablet by mouth twice daily as needed for muscle spasm. Nelson Robert APRN.[place] * Telephone Encounter - Brynn Watson LPN - 11/06/2022 12:34 PM EDT Patient has been identified by name and date of : daughter in law phones for refill(s): Requested Prescriptions Pending Prescriptions Disp Refills cyclobenzaprine (FLEXERIL) 10 mg tablet 60 tablet 5 Sig: Take 1 tablet by mouth twice daily as needed for muscle spasm. Date of last office visit in primary care: 08/07/2022, has appt 11/13/2022 Last 2 Encounter Wt Readings: Date: Wt: 08/07/2022 78.5 kg (173 lb) 05/01/2022 78.5 kg (173 lb) Previous labs/tests for medication: Not applicable Please advise. Thank you. Brynn Watson LPN Patient has one pill left. documented in this encounterCorey Hospital05-09-2023 Miscellaneous Notes* Telephone Encounter - Michelle Alvarez Ma - 09/01/2022 10:23 AM EDT Images from the original note were not included. Ran PA through again with covermymed and used different dx code and was approved but used differentdx Michelle Alvarez Ma * Telephone Encounter - Michelle Alvarez Ma - 09/01/2022 9:50 AM EDT Called adrián to check status since no faxes have been received. PA states no PA needed will call pharmacy and have them run with specific NDC code. NDC: [id number] NDC: [id number] Called [facility] and they ran medication which is still showing Pa needed with NDC codes used. [facility] aware they will need to contact fina. Tried calling patient to update her but no answer and mailbox was full. Michelle Alvarez Ma * Telephone Encounter - Michelle Alvarez Ma - 08/26/2022 3:31 PM EDT Called fina to check on status of PA for flexeril and it did not go through covermymeds. Did PAover the phone with rep PA # [id number] Michelle Alvarez Ma * Telephone Encounter - Michelle Alvarez Ma - 08/21/2022 3:46 PM EDT PA have never been completed for either med which needs done first before appeal letter. Completed Electronic PA for Advair was approved and verified with [employer] goes through. Tried calling patientbut no answer and vm full. PA completed through covermymeds for flexeril [place]: [id number] Michelle Alvarez Ma * Telephone Encounter - Sanjana Baca Ma - 08/21/2022 3:01 PM EDT Routed to PA Nurse to see if there's anything that we need to do on our end that shows why the Insurance needs a letter. It looks like this was all improved on our end, but the coverage date may haveended. Sanjana Baca Ma * Telephone Encounter - Orly Stacy - 08/21/2022 2:40 PM EDT Denia Gonzalez is calling Yoseph Fall MD today to request a letter to her insurance company stating why she needs Advair and Flexeril. I asked patient who we should send the letter to and she did not know the fax number. Patient's insurance is [employer]. Asked patient what the phone number was for [employer] and she gave me a phone number that was not for Kiana. I asked if this was aprior authorization that was needed and she said she needed a letter. Please contact patient with any other questions. No chief complaint on file. Patient has been identified by name and birthdate. Duration of symptoms: N/A Person calling: self Call patient at: at home [phone] (home) [phone] (cell) Was an appointment scheduled: No Closing statement: Results or non-symptom based questions: Thank you for [facility], your call will be returned within the next business day. Orly Stacy documented in this encounterCorey Hospital03-10-2023 Miscellaneous Notes* Telephone Encounter - Naima Haines Ma - 07/03/2022 10:32 AM EST Faxed. Naima Haines Ma * Telephone Encounter - Naima Haines Ma - 07/02/2022 9:09 AM EST Type of letter/form/fax request - Medical Necessity-Incontinence supplies Form received from fax on [address] Fall's desk for completion. Completed form needs to be faxed to [facility] at [phone]. Route to [place] when form completed for processing documented in this encounterCorey Hospital03-06-2023 Miscellaneous Notes* Telephone Encounter - Nelson Robert APRN.CNP - 06/29/2022 2:05 PM EST The following approved medication requests have been transmitted electronically. Requested Prescriptions Pending Prescriptions Disp Refills sertraline (ZOLOFT) 100 mg tablet 180 tablet 3 Sig: Take 2 tablets by mouth once daily. omeprazole (PRILOSEC) 20 mg capsule 30 capsule 11 Sig: Take 1 capsule by mouth once daily. ON AN EMPTY STOMACH montelukast (SINGULAIR) 10 mg tablet 60 tablet 5 Sig: ONE -TWO TABS Q 4HOURS PRN Nelson Robert APRN.[place] * Telephone Encounter - Orly Stacy - 06/29/2022 11:35 AM EST Patient has been identified by name and date of : Yes Requested Prescriptions Pending Prescriptions Disp Refills sertraline (ZOLOFT) 100 mg tablet 180 tablet 3 Sig: Take 2 tablets by mouth once daily. omeprazole (PRILOSEC) 20 mg capsule 30 capsule 11 Sig: Take 1 capsule by mouth once daily. ON AN EMPTY STOMACH montelukast (SINGULAIR) 10 mg tablet 0 Sig: Take by mouth. NEGRA-05/01/22 Labs-07/12/21 NOV-08/07/22 med filled 07/08/21 RX INSTRUCTIONS: Patient aware RX will be sent to pharmacy. No need to notify patient. Orly Stacy documented in this encounterCorey Hospital02-13-2023 Miscellaneous Notes* Telephone Encounter - Nelson Robert APRN.CNP - 06/08/2022 2:16 PM EST The following approved medication requests have been transmitted electronically. Requested Prescriptions Pending Prescriptions Disp Refills predniSONE (DELTASONE) 10 mg tablet 30 tablet 5 Sig: Take 1 tablet by mouth every other day. Cholecalciferol, Vitamin D3, 50 mcg (2,000 unit) cap 30 capsule 5 Sig: Take 1 capsule by mouth once daily. Nelson Robert APRN.CNP * Telephone Encounter - Essie Medina RN - 06/08/2022 2:09 PM EST Patient has been identified by name and date of : Yes, Provider Date Time Patient phones for refill(s): Requested Prescriptions Pending Prescriptions Disp Refills predniSONE (DELTASONE) 10 mg tablet 30 tablet 5 Sig: Take 1 tablet by mouth every other day. Cholecalciferol, Vitamin D3, 50 mcg (2,000 unit) cap 30 capsule 5 Sig: Take 1 capsule by mouth once daily. Date of last office visit with pcp: 05/01/22 Date of last office visit in primary care: Last 2 Encounter Wt Readings: Date: Wt: 05/01/2022 78.5 kg (173 lb) 02/20/2022 77.6 kg (171 lb) Previous labs/tests for medication: Not applicable Please advise. Thank you. Essie Medina RN documented in this encounterCorey Hospital01-20-2023 Miscellaneous Notes* Telephone Encounter - Yoseph Fall MD - 05/15/2022 3:37 PM EST OK to refill as ordered Yoseph Fall MD * Telephone Encounter - Judy Bliss RN - 05/15/2022 3:28 PM EST Last Office Visit: 05/01/2022 Future Office Visit: 07/31/2022 Requested Prescriptions Pending Prescriptions Disp Refills ipratropium-albuterol (DUONEB) 0.5 mg-3 mg(2.5 mg base)/3 mL nebu 360 mL 2 Sig: inhale 1 ampule via nebulizer every 4 hours if needed for wheezing. Use over 5 to 15 minutes 07/12/2021 Date of Last Labs: documented in this encounterCorey Hospital01-10-2023 Miscellaneous Notes* Telephone Encounter - Nelson Robert APRN.[place] - 05/05/2022 1:29 PM EST The following approved medication requests have been transmitted electronically. Requested Prescriptions Pending Prescriptions Disp Refills tiotropium (SPIRIVA WITH HANDIHALER) 18 mcg inhalation capsule 810 capsule 0 Sig: inhale 1 capsule by mouth as directed once daily Nelson Robert APRN.CNP * Telephone Encounter - Fawn Carrillo - 05/05/2022 12:55 PM EST Patient wants clinical staff to review her active meds and refill anything that needs it. She could not tell me the names of the medications she is currently taking. * Telephone Encounter - Fawn Carrillo - 05/05/2022 12:55 PM EST Patient has been identified by name and date of : Yes Requested Prescriptions Pending Prescriptions Disp Refills tiotropium (SPIRIVA WITH HANDIHALER) 18 mcg inhalation capsule 810 capsule 0 Sig: inhale 1 capsule by mouth as directed once daily RX INSTRUCTIONS: Patient aware RX will be sent to pharmacy. No need to notify patient. Fawn Carrillo documented in this encounterCorey Hospital01-06-2023 History of Present illness Narrative* Yoseph Fall MD - 05/01/2022 2:40 PM EST Chief Complaint Patient presents with: Follow Up: Medication follow up HPI: This Team Access Model visit is a phone encounter. It required patient- provider interaction for the medical decision making as documented below. Patient was offered a virtual/telemedicine appointment in lieu of an office visit due to recommendations to reduce patient exposure to COVID-19. Patient is aware of limitations of performing the visit without a face to face visit in the office setting and agrees. Last in office visit was June 2021. Denies any bowel, Gi, or urinary issues. GERD: Controlled on Prilosec 20 mg daily. Pain: Chronic pain that pt is currently being weaned down on her [place] 5-325 mg. Does not think shecan go any lower on the [place]. Pt on current regimen of [place] 5-325 mg taking 1 tab po bid prn, #35/month, and Flexeril 10 mg BID prn. Last TOX and Pain Panel done in June 2021. HTN: Checking BP at home. Taking Verapamil 240 mg daily and Losartan 50 mg half pill as needed if BP is over 150/90 range. No chest pains, dizziness, or unusual SOB. GERRY/Depression: Taking zoloft 100 mg 2 pill daily and Requip 0.25 mg daily which is working well for her. Has some good days and bad days, bad day anniversary of her youngest son's who was killed in [place]. COPD: Follows with PulmDr. Guzmán. Still smoking; encouraged cessation. Has cut down some because she smokes outside and does not like the cold weather. On current regimen of Singulair 10 mg once daily, Prednisone 20 mg prn, Albuterol inhaler prn, Spiriva 18 mcg once daily and Advair 1 puff po bid. Past medical history, appointments, medications, allergies reviewed. Previous Medical History PAST MEDICAL HISTORY Diagnosis Date Closed fracture of unspecified part of humerus Arm fracture Dysthymic disorder Depression (non-psychotic) Essential hypertension, benign 04/26/2006 Generalized anxiety disorder Anxiety, Generalized Generalized osteoarthrosis, involving multiple sites Osteoarthritis - renee. hands, knees Malignant neoplasm of bronchus and lung, unspecified site 04/26/2003 Lung cancer OR (myocardial infarction) (HCC) 10-10 [facility] to [facility] heart stopped Obstructive chronic bronchitis with exacerbation (HCC) COPD Other abnormal Papanicolaou smear of cervix and cervical HPV(795.09) 04/26/2002 h/o abnormal paps, had colposcopy vs. cone, hasn't had any paps since dx of lung CA, but her last pap 4+ yrs ago was abnormal per pt Other and unspecified alcohol dependence, unspecified drinking behavior ETOH depend. syn. PMH - PAST MEDICAL HISTORY OF FX right foot Previous Surgical History PAST SURGICAL HISTORY Procedure Laterality Date CONIZATION CERVIX W/WO D&C RPR ELTRD EXC 2003 Dr. Danis BRYSON ERCP 06/22/2016 choledocholithiasis, cholangitis LAPS SURG CHOLECYSTECTOMY W/CHOLANGIOGRAPHY 08/06/2016 PAST SURGICAL HISTORY OF 1987 polyp removed from throat PAST SURGICAL HISTORY OF 1990 ectopic - took tube PAST SURGICAL HISTORY OF 1990 exploratory abd lap -? may have had ovary removed - pt told she cannot have children anymore PICC LINE INSERT/CONSULT 06/26/2016 PULMONARY FUNCTION TEST 08/14/04 RMVL LUNG OTHER THAN PNEUMONECTOMY 1 LOBE LOBECT 04/22/2004 right upper lobectomy Family History FAMILY HISTORY Problem Relation Age of Onset Cancer Mother : Throat, UTERINE Hypertension Mother Cancer Father Stomach CA Heart Father AAA Hypertension Father Heart Paternal Grandmother Breast Cancer Paternal Grandmother Heart Paternal Grandfather Patient Allergies ALLERGIES No Known Allergies Current Medications Current Outpatient Medications on File Prior to Visit Medication Sig HYDROcodone-acetaminophen (NORCO) 5-325 mg per tablet Take 1 tablet by mouth twice daily as needed for pain for up to 30 days. predniSONE (DELTASONE) 10 mg tablet Take 1 tablet by mouth every other day. HYDROcodone-acetaminophen (NORCO) 5-325 mg per tablet Take 1 tablet by mouth twice daily as needed for pain for up to 30 days. Do not start before February 17, 2022. predniSONE (DELTASONE) 20 mg tablet Take 2 tablets by mouth once daily. fluticasone-salmeterol (ADVAIR DISKUS) 500-50 mcg/dose dsdv Inhale 1 Puff as instructed twice daily. Rinse and gargle mouth with water after use. cyclobenzaprine (FLEXERIL) 10 mg tablet Take 1 tablet by mouth twice daily as needed for muscle spasm. verapamil SR (CALAN SR, ISOPTIN SR) 240 mg CR tablet Take 1 tablet by mouth daily at bedtime. rOPINIRole (REQUIP) 0.25 mg tablet Take 1 tablet by mouth daily at bedtime. Cholecalciferol, Vitamin D3, 50 mcg (2,000 unit) cap Take 1 capsule by mouth once daily. albuterol HFA (VENTOLIN HFA) 90 mcg/actuation inhaler Inhale 2 Puffs as instructed every 4 hours asneeded. PULSE OXIMETER [facility] Use as directed to check oxygen saturation level sertraline (ZOLOFT) 100 mg tablet Take 2 tablets by mouth once daily. omeprazole (PRILOSEC) 20 mg capsule TAKE 1 CAPSULE EVERY DAY on an empty stomach montelukast (SINGULAIR) 10 mg tablet Take 1 tablet by mouth once daily. tiotropium (SPIRIVA WITH HANDIHALER) 18 mcg inhalation capsule inhale 1 capsule by mouth as directed once daily ipratropium-albuterol (DUONEB) 0.5 mg-3 mg(2.5 mg base)/3 mL nebu inhale 1 ampule via nebulizer every 4 hours if needed for wheezing. Use over 5 to 15 minutes fluticasone (FLONASE) 50 mcg/actuation nasal spray use 2 sprays in each nostril daily. Rinse mouth after use ammonium lactate (AMLACTIN) 12 % lotion Apply 1 application to affected area as needed for Dry Skin. losartan (COZAAR) 50 mg tablet Take 0.5 tablets by mouth once daily. Nicotine Polacrilex [address] 4 mg between cheek and gum as needed. nicotine polacrilex (NICORETTE) 2 mg gum Take 1 Each by mouth every 2 hours as needed. Nebulizer and Compressor For Neb Use as directed. Dx: COPD J44.9 Nebulizer Accessories [facility] Mask and supplies as needed Smjheyapwiohg-QJ-srpcVJFqrvw (MUCINEX FAST-MAX CONGEST-COUGH) 2.5-5-100 mg/5 mL liqd Take 10 mL by mouth three times daily as needed. OXYGEN, HOME THERAPY, 2.5 L/min by Nasal Cannula route continuous. Use as directred Disposable Gloves (DISPOSABLE LATEX-FREE GLOVES) [facility] 1 Box once every month. ICD 10: M15.9, J44.9,M54.40 Incontinence Pad, Liner, Disp (POISE PADS) pads Use pads as directed. Dx: N39.46 COMPOUNDED PRESCRIPTION BLOOD PRESSURE CUFF FOR HOME USE. DX: HYPERTENSION I10. AUTOMATIC CUFF. COMPOUNDED PRESCRIPTION Blood pressure monitor for home use. Dx: I10 OXYGEN-AIR DELIVERY SYSTEMS DEVICE as necessary No current facility-administered medications on file prior to visit. Social History Social History Tobacco Use Smoking status: Every Day Packs/day: 1.00 Years: 42.00 Pack years: 42.00 Types: Cigarettes Start date: 1969 Smokeless tobacco: Never Vaping Use Vaping Use: Never used Substance Use Topics Alcohol use: Yes Comment: Nothing since 03/2012. Drug use: No EXAM: BP 132/81 Pulse 105 Wt 78.5 kg (173 lb) LMP 03/30/2005 BMI 30.65 kg/m Health Maintenance List BP CONTROLLED (<130/80) Never done ALPHA-1 ANTITRYPSIN DEFICIENCY SCREENING Never done SHINGRIX VACCINE(1 of 2) Never done PAP TESTING due on 10/24/2015 MAMMOGRAM due on 10/16/2016 COLORECTAL CANCER SCREENING due on 02/14/2020 BONE DENSITY due on 2020 COVID-19 VACCINE(4 - Booster for Moderna series) due on 12/12/2021 INFLUENZA(1) due on 12/25/2021 ADVANCE DIRECTIVE DISCUSSION due on 04/26/2022 ANNUAL PCP TEAM CHRONIC DISEASE VISIT due on 01/23/2023 DTAP,TDAP,TD(2 - Td or Tdap) due on 10/25/2023 LIPID SCREEN due on 02/09/2024 DIABETES SCREEN due on 07/12/2024 SPIROMETRY Completed HEPATITIS C SCREENING Completed PNEUMOCOCCAL: 65+ Completed Data reviewed none ASSESSMENT/PLAN: 1. Stage 3 severe COPD by GOLD classification (HCC) - ICD9: 496, ICD10: J44.9 (primary diagnosis) Continue current medications. 2. Chronic low back pain with sciatica, sciatica laterality unspecified, unspecified back pain laterality - ICD9: 724.2, 724.3, 338.29, ICD10: M54.40, G89.29 Continue same meds for another 3 months - HYDROCODONE 5 MG-ACETAMINOPHEN 325 MG TABLET - HYDROCODONE 5 MG-ACETAMINOPHEN 325 MG TABLET - HYDROCODONE 5 MG-ACETAMINOPHEN 325 MG TABLET 3. Chronic respiratory failure with hypoxia (HCC) - ICD9: 518.83, 799.02, ICD10: J96.11 4. Essential hypertension, benign - ICD9: 401.1, ICD10: I10 Continue current medications. 5. Generalized anxiety disorder - ICD9: 300.02, ICD10: F41.1 6. Tobacco use disorder - ICD9: 305.1, ICD10: F17.200 - Cessation encouraged. - Physiologic and physical aspects of tobacco addiction as well as strategies for quitting were discussed. - Counseling was given focusing on the harmful effects of this addiction especially given the patient's medical condition(s) which will be worsened because of the chemicals in tobacco. Follow up in 3 months in office I agree with the Chief Complaint, ROS, and Past Histories independently gathered by the clinical shipping support and the remaining scribed note accurately describes my personal service to the patient. 5-10 minutes of time spent on phone call Yoseph Fall MD The documentation for this note was completed by Naima Haines Ma acting as scribe for Yoseph Fall MD. May 01, 2022 2:41 PM. Naima Haines Ma documented in this encounterCorey Hospital12-27-2022 Miscellaneous Notes* Telephone Encounter - Yoseph Fall MD - 04/21/2022 11:51 AM EST OK to refill as ordered Yoseph Fall MD * Telephone Encounter - Brynn Watson LPN - 04/21/2022 10:41 AM EST Patient has been identified by name and date of : Yes, Provider pcp Date 04/21/2022 Time 1042 am daughter in law phones for refill(s): Requested Prescriptions Pending Prescriptions Disp Refills HYDROcodone-acetaminophen (NORCO) 5-325 mg per tablet 35 tablet 0 Sig: Take 1 tablet by mouth twice daily as needed for pain for up to 30 days. Date of last office visit in primary care: 01/23/2022, no future appt scheduled Last 2 Encounter Wt Readings: Date: Wt: 02/20/2022 77.6 kg (171 lb) 02/20/2022 77.6 kg (171 lb) Previous labs/tests for medication: Not applicable Please advise. Thank you. Brynn Watson LPN Patient has none left right now. Patient is asking for another appt for telephone visit to be set up with PCP please. documented in this encounterCorey Hospital11-04-2022 Miscellaneous Notes* Telephone Encounter - Falguni Patton LPN - 02/27/2022 3:51 PM EDT Patient notified re: same. Falguni Patton LPN * Telephone Encounter - Mercedez Zarate PA-C - 02/27/2022 3:06 PM EDT Order printed and may be FAXED. Ashley * Telephone Encounter - Lindsay Romero RN - 02/27/2022 2:57 PM EDT Patient calls office and asks if office can file order for oxygen and fax to [facility] in [place]. This nurse does not see order in computer and it appears PCP has ordered oxygen in the past. Please call patient at [phone] when this has been completed or if there are any issues. documented in this encounterCorey Hospital10-28-2022 Procedure note* MUNA Cutler - 02/20/2022 1:25 PM EDTAssociated Order(s): OXIMETRY WITH AMBULATION RESPIRATORY THERAPY OXIMETRY WITH AMBULATION Oximetry with Ambulation Test for This Encounter O2 Device O2 Adapter NC O2 Flow SpO2% HR Activity Ft Walked (ft) Time (min) Avg Speed (MPH) R/A 93 108 Resting R/A 87 122 Walking, usual pace 125 1.6 0.89 NC 2 94 113 Resting NC 2 90 127 Walking, usual pace 245 3 0.93 General Information Pulse Oximetry Site Total Time Spent O2 Supply Carrier Walking Assistance/Device R Index Finger 25 3 Wheel Walker 3 Wheel Walker NAME: MUNA Cutler PATIENT NAME: Denia Gonzalez DATE: February 20, 2022 TIME: 1:25 PM Comment: documented in this encounterCorey Hospital10-28-2022 History of Present illness Narrative* MUNA Cutler - 02/20/2022 1:22 PM EDT PULM FUNCTION SMARTBLOCK: Provider: Michelle Gzumán MD Assisting Tech: MUNA Cutler Oximetry - Ambulation: 1 documented in this encounterCorey Hospital09-27-2022 Miscellaneous Notes* Telephone Encounter - Nelson Robert APRN.CNP - 01/20/2022 1:36 PM EDT Approved. PDMP website checked and validated. All prescriptions have been APPROPRIATELY filled. No suspiciousactivity was identified. 01/20/2022 by Nelson Robert APRN.CNP The following approved medication requests have been transmitted electronically. Requested Prescriptions Signed Prescriptions Disp Refills HYDROcodone-acetaminophen (NORCO) 5-325 mg per tablet 35 tablet 0 Sig: Take 1 tablet by mouth twice daily as needed for pain for up to 30 days. Authorizing Provider: NELSON ROBERT predniSONE (DELTASONE) 20 mg tablet 10 tablet 2 Sig: Take 2 tablets by mouth once daily. Authorizing Provider: NELSON ROBERT APRN.CNP * Telephone Encounter - Fina Mora Pss - 01/20/2022 9:24 AM EDT Patient has been identified by name and date of : Yes Requested Prescriptions Pending Prescriptions Disp Refills HYDROcodone-acetaminophen (NORCO) 5-325 mg per tablet 35 tablet 0 Sig: Take 1 tablet by mouth twice daily as needed for pain for up to 30 days. predniSONE (DELTASONE) 20 mg tablet 10 tablet 2 Sig: Take 2 tablets by mouth once daily. RX INSTRUCTIONS: Patient aware RX will be sent to pharmacy. No need to notify patient. Fina Mora Pss documented in this encounterCorey Hospital09-15-2022 Miscellaneous Notes* Telephone Encounter - Falguni Patton LPN - 01/08/2022 8:39 AM EDT Noted, thank you! Falguni Patton LPN * Telephone Encounter - Mini Pineda RN - 01/08/2022 8:31 AM EDT Bettie with [facility] calling in. States pt. needs to re-qualify for home O2. Pt. has not seen a [employer] for a while (former pt. of Dr. Huertas). This nurse instructed Bettie to have pt.call to set up consult/ appt with Dr. Guzmán. Bettie will do so. Mini Pineda RN documented in this encounterCorey Hospital08-25-2022 Miscellaneous Notes* Telephone Encounter - Naima Haines Ma - 12/18/2021 9:49 AM EDT Tried to notify pt of decrease in number of pills, VM full. Naima Haines Ma * Telephone Encounter - Yoseph Fall MD - 12/18/2021 9:07 AM EDT OK to refill as ordered Taper down to #35 pills/month Yoseph Flal MD * Telephone Encounter - Cami Louie RN - 12/18/2021 8:48 AM EDT Patient has been identified by name and date of : Yes Patient phones for refill(s): Requested Prescriptions Pending Prescriptions Disp Refills HYDROcodone-acetaminophen (NORCO) 5-325 mg per tablet 40 tablet 0 Sig: Take 1 tablet by mouth twice daily as needed for pain for up to 30 days. Date of last office visit with pcp: 10-17-21 this was a virtual visit Next appt: 01-23-22 this is a virtual visit. Last 2 Encounter Wt Readings: Date: Wt: 07/17/2021 81.1 kg (178 lb 12.8 oz) 04/15/2021 78.9 kg (174 lb) Previous labs/tests for medication: Blood Pressure: BUN (mg/dL) Date Value 07/12/2021 19 05/11/2018 12 Sodium (mmol/L) Date Value 07/12/2021 136 05/11/2018 139 Last 1 Encounter BP Readings: Date: BP: 07/17/2021 126/78 Liver Function: ALT (U/L) Date Value 07/12/2021 11 05/11/2018 12 AST (U/L) Date Value 07/12/2021 15 05/11/2018 12 Please advise. Thank you. Cami Louie RN documented in this encounterCorey Hospital07-25-2022 Miscellaneous Notes* Telephone Encounter - Nelson Robert APRN.CNP - 11/17/2021 9:56 AM EDT Approved. PDMP website checked and validated. All prescriptions have been APPROPRIATELY filled. No suspiciousactivity was identified. 11/17/2021 by Nelson Robert APRN.CNP The following approved medication requests have been transmitted electronically. Signed Prescriptions Disp Refills HYDROcodone-acetaminophen (NORCO) 5-325 mg per tablet 40 tablet 0 Sig: Take 1 tablet by mouth twice daily as needed for pain for up to 30 days. LEROY Class: C-II LENY: No Authorizing Provider: NELSON ROBERT APRN.CNP * Telephone Encounter - Nica Tellez MA - 11/17/2021 9:43 AM EDT Patient has been identified by name and date of : Yes Pending Prescriptions Disp Refills HYDROCODONE 5 MG-ACETAMINOPHEN 325 MG TABLET 40 tablet 0 Sig: Take 1 tablet by mouth twice daily as needed for pain for up to 30 days. LEROY Class: C-II LENY: No RX INSTRUCTIONS: Patient aware RX will be sent to pharmacy. No need to notify patient. Nica Tellez MA [place]; 09/2021 Nov; 12/2021 Last refill: 10/17/2021 * Telephone Encounter - Denia Ariza Pss - 11/17/2021 8:45 AM EDT Patient has been identified by name and date of : Yes Pending Prescriptions Disp Refills HYDROCODONE 5 MG-ACETAMINOPHEN 325 MG TABLET 40 tablet 0 Sig: Take 1 tablet by mouth twice daily as needed for pain for up to 30 days. LEROY Class: C-II LENY: No RX INSTRUCTIONS: Patient aware RX will be sent to pharmacy. No need to notify patient. Denia Ariza Pss documented in this encounterCorey Hospital06-24-2022 History of Present illness Narrative* Yoseph Fall MD - 10/17/2021 2:00 PM EDT Chief Complaint Patient presents with: F/U 3 Month HPI:This Team Access Model visit is a phone encounter. It required patient- provider interaction forthe medical decision making as documented below. Patient was offered a virtual/telemedicine appointment in lieu of an office visit due to recommendations to reduce patient exposure to COVID-19. Patient is aware of limitations of performing the visit without a face to face visit in the office setting and agrees. Pt completing a virtual visit today for a 3 month follow up. Pain: Chronic pain that pt is currently being weaned down on her [place] 5-325 mg. Pt on current regimen of [place] 5-325 mg taking 1 tab po bid prn, receiving #40 per month and Flexeril 10 mg 1 tab po bid prn. COPD: Still smoking. On current regimen of Singulair 10 mg once daily, Prednisone 20 mg prn, Albuterol inhaler prn, Spiriva 18 mcg once daily and Advair 1 puff po bid. GERRY/Depression: Overall stable on her current regimen of Zoloft 100 mg 2 tabs po once daily and Requip 0.25 mg once daily. HTN: Checking BP at home. Is only using Losartan 50 mg half pill as needed when her BP is running higher 150/90. Does not take Losartan daily. No chest pains, dizziness, or unusual SOB. Past medical history, appointments, medications, allergies reviewed. Previous Medical History PAST MEDICAL HISTORY Diagnosis Date Closed fracture of unspecified part of humerus Arm fracture Dysthymic disorder Depression (non-psychotic) Essential hypertension, benign 2006 Generalized anxiety disorder Anxiety, Generalized Generalized osteoarthrosis, involving multiple sites Osteoarthritis - renee. hands, knees Malignant neoplasm of bronchus and lung, unspecified site 2003 Lung cancer OR (myocardial infarction) (HCC) 10-10 taken to [facility] heart stopped Obstructive chronic bronchitis with exacerbation (HCC) COPD Other abnormal Papanicolaou smear of cervix and cervical HPV(795.09) 2002 h/o abnormal paps, had colposcopy vs. cone, hasn't had any paps since dx of lung CA, but her last pap 4+ yrs ago was abnormal per pt Other and unspecified alcohol dependence, unspecified drinking behavior ETOH depend. syn. PMH - PAST MEDICAL HISTORY OF FX right foot Unspecified asthma(493.90) Previous Surgical History PAST SURGICAL HISTORY Procedure Laterality Date CONIZATION CERVIX W/WO D&C RPR ELTRD EXC 2003 Dr. Danis BRYSON ERCP 06/22/2016 choledocholithiasis, cholangitis LAPS SURG CHOLECYSTECTOMY W/CHOLANGIOGRAPHY 08/06/2016 PAST SURGICAL HISTORY OF 1987 polyp removed from throat PAST SURGICAL HISTORY OF 1990 ectopic - took tube PAST SURGICAL HISTORY OF 1990 exploratory abd lap -? may have had ovary removed - pt told she cannot have children anymore PICC LINE INSERT/CONSULT 06/26/2016 PULMONARY FUNCTION TEST 08/14/04 RMVL LUNG OTHER THAN PNEUMONECTOMY 1 LOBE LOBECT 04/22/2004 right upper lobectomy Family History FAMILY HISTORY Problem Relation Age of Onset Cancer Mother : Throat, UTERINE Hypertension Mother Cancer Father Stomach CA Heart Father AAA Hypertension Father Heart Paternal Grandmother Breast Cancer Paternal Grandmother Heart Paternal Grandfather Patient Allergies ALLERGIES No Known Allergies Current Medications Current Outpatient Medications on File Prior to Visit Medication Sig predniSONE (DELTASONE) 20 mg tablet Take 2 tablets by mouth once daily. albuterol HFA (VENTOLIN HFA) 90 mcg/actuation inhaler Inhale 2 Puffs as instructed every 4 hours asneeded. HYDROcodone-acetaminophen (NORCO) 5-325 mg per tablet Take 1 tablet by mouth twice daily as needed for pain for up to 30 days. Cholecalciferol, Vitamin D3, 50 mcg (2,000 unit) cap Take 1 capsule by mouth once daily. cyclobenzaprine (FLEXERIL) 10 mg tablet Take 1 tablet by mouth twice daily as needed for muscle spasm. PULSE OXIMETER [facility] Use as directed to check oxygen saturation level sertraline (ZOLOFT) 100 mg tablet Take 2 tablets by mouth once daily. omeprazole (PRILOSEC) 20 mg capsule TAKE 1 CAPSULE EVERY DAY on an empty stomach montelukast (SINGULAIR) 10 mg tablet Take 1 tablet by mouth once daily. fluticasone-salmeterol (ADVAIR DISKUS) 500-50 mcg/dose dsdv Inhale 1 Puff as instructed twice daily. Rinse and gargle mouth with water after use. tiotropium (SPIRIVA WITH HANDIHALER) 18 mcg inhalation capsule inhale 1 capsule by mouth as directed once daily ipratropium-albuterol (DUONEB) 0.5 mg-3 mg(2.5 mg base)/3 mL nebu inhale 1 ampule via nebulizer every 4 hours if needed for wheezing. Use over 5 to 15 minutes fluticasone (FLONASE) 50 mcg/actuation nasal spray use 2 sprays in each nostril daily. Rinse mouth after use verapamil SR (CALAN SR, ISOPTIN SR) 240 mg CR tablet Take 1 tablet by mouth daily at bedtime. rOPINIRole (REQUIP) 0.25 mg tablet Take 1 tablet by mouth daily at bedtime. ammonium lactate (AMLACTIN) 12 % lotion Apply 1 application to affected area as needed for Dry Skin. losartan (COZAAR) 50 mg tablet Take 0.5 tablets by mouth once daily. Nicotine Polacrilex [address] 4 mg between cheek and gum as needed. nicotine polacrilex (NICORETTE) 2 mg gum Take 1 Each by mouth every 2 hours as needed. Nebulizer and Compressor For Neb Use as directed. Dx: COPD J44.9 Nebulizer Accessories misc Mask and supplies as needed Pzziwgdorgwqm-AK-nophYHQrldh (MUCINEX FAST-MAX CONGEST-COUGH) 2.5-5-100 mg/5 mL liqd Take 10 mL by mouth three times daily as needed. OXYGEN, HOME THERAPY, 2.5 L/min by Nasal Cannula route continuous. Use as directred Disposable Gloves (DISPOSABLE LATEX-FREE GLOVES) [facility] 1 Box once every month. ICD 10: M15.9, J44.9,M54.40 Incontinence Pad, Liner, Disp (POISE PADS) pads Use pads as directed. Dx: N39.46 COMPOUNDED PRESCRIPTION BLOOD PRESSURE CUFF FOR HOME USE. DX: HYPERTENSION I10. AUTOMATIC CUFF. COMPOUNDED PRESCRIPTION Blood pressure monitor for home use. Dx: I10 OXYGEN-AIR DELIVERY SYSTEMS DEVICE as necessary No current facility-administered medications on file prior to visit. Social History Social History Tobacco Use Smoking status: Current Every Day Smoker Packs/day: 1.00 Years: 42.00 Pack years: 42.00 Types: Cigarettes Start date: 1969 Smokeless tobacco: Never Used Vaping Use Vaping Use: Never used Substance Use Topics Alcohol use: Yes Comment: Nothing since 03/2012. Drug use: No EXAM: LMP 03/30/2005 Health Maintenance List SHINGRIX VACCINE(1 of 2) Never done PAP TESTING due on 10/24/2015 MAMMOGRAM due on 10/16/2016 COLORECTAL CANCER SCREENING due on 02/14/2020 BONE DENSITY due on 2020 COVID-19 VACCINE(3 - Booster for Moderna series) due on 10/06/2021 INFLUENZA(Season Ended) due on 12/25/2021 ANNUAL PCP TEAM CHRONIC DISEASE VISIT due on 07/17/2022 BP CONTROLLED (<130/80) due on 07/17/2022 DTAP,TDAP,TD(2 - Td or Tdap) due on 10/25/2023 LIPID SCREEN due on 02/09/2024 DIABETES SCREEN due on 07/12/2024 SPIROMETRY Completed ADVANCE DIRECTIVE DISCUSSION Completed HEPATITIS C SCREENING Completed PNEUMOCOCCAL: 65+ Completed Data reviewed none ASSESSMENT/PLAN: 1. Chronic obstructive pulmonary disease, unspecified COPD type (HCC) - ICD9: 496, ICD10: J44.9 (primary diagnosis) May use prednisone 10 mg every other day as needed - PREDNISONE 10 MG TABLET - PORTABLE OXYGEN CONCENTRATOR 2. Chronic low back pain with sciatica, sciatica laterality unspecified, unspecified back pain laterality - ICD9: 724.2, 724.3, 338.29, ICD10: M54.40, G89.29 Chronic low back pain Stay on #40 pills/month this month, continue to taper in the future; discussed possibility of Pain Management consult - she does not want to do this right now - HYDROCODONE 5 MG-ACETAMINOPHEN 325 MG TABLET 3. Essential hypertension, benign - ICD9: 401.1, ICD10: I10 - good control - Continue current medication(s) - Goal of BP <140/90 - Patient counselled on smoking cessation. 4. Uncomplicated asthma, unspecified asthma severity, unspecified whether persistent - ICD9: 493.90, ICD10: J45.909 - PREDNISONE 10 MG TABLET - PORTABLE OXYGEN CONCENTRATOR 5. Generalized anxiety disorder - ICD9: 300.02, ICD10: F41.1 Continue current medications. Follow up in 3 months 11-20 minutes of time spent on phone call I agree with the Chief Complaint, ROS, and Past Histories independently gathered by the clinical shipping support and the remaining scribed note accurately describes my personal service to the patient. Yoseph Fall MD The documentation for this note was completed by Naima Haines Ma acting as scribe for Yoseph Fall MD. October 17, 2021 2:02 PM. Naima Haines Ma documented in this encounterCorey Hospital06-07-2022 Miscellaneous Notes* Telephone Encounter - Naima Haines Ma - 09/30/2021 2:06 PM EDT The following approved medication requests have been transmitted electronically. Signed Prescriptions Disp Refills predniSONE (DELTASONE) 20 mg tablet 10 tablet 2 Sig: Take 2 tablets by mouth once daily. LENY: No Authorizing Provider: YOSEPH FALL albuterol HFA (VENTOLIN HFA) 90 mcg/actuation inhaler 6.7 g 11 Sig: Inhale 2 Puffs as instructed every 4 hours as needed. LENY: No Authorizing Provider: YOSEPH FALL Ma * Telephone Encounter - Yoseph Fall MD - 09/30/2021 2:01 PM EDT OK to refill as ordered Yoseph Fall MD * Telephone Encounter - Mikayla Mora LPN - 09/30/2021 12:15 PM EDT Pt reports she needs a refill on her Prednisone. This helps her with her breathing. Checking to seeif she can get refills also on this. Patient has been identified by name and date of : Yes Patient phones for refill(s): Pending Prescriptions Disp Refills PREDNISONE 20 MG TABLET 10 tablet 0 Sig: Take 2 tablets by mouth once daily. LENY: No ALBUTEROL SULFATE HFA 90 MCG/ACTUATION AEROSOL INHALER 6.7 g 11 Sig: Inhale 2 Puffs as instructed every 4 hours as needed. LENY: No Date of last office visit in primary care: 07/17/21 next apt 10/17/21 Last 2 Encounter Wt Readings: Date: Wt: 07/17/2021 81.1 kg (178 lb 12.8 oz) 04/15/2021 78.9 kg (174 lb) Previous labs/tests for medication: Not applicable Please advise. Thank you. Mikayla Mora LPN [facility] Miscellaneous Notes* Telephone Encounter - Yoseph Fall MD - 09/15/2021 2:56 PM EDT OK to refill as ordered Yoseph Fall MD * Telephone Encounter - Jennifer Hennessy LPN - 09/15/2021 1:42 PM EDT Last OV: 07/17/21 - Next appt scheduled: 10/17/21 Last rx: 08/18/21 Patient has been identified by name and date of : Yes Pending Prescriptions Disp Refills HYDROCODONE 5 MG-ACETAMINOPHEN 325 MG TABLET 40 tablet 0 Sig: Take 1 tablet by mouth twice daily as needed for pain for up to 30 days. LEROY Class: C-II LENY: No RX INSTRUCTIONS: Patient aware RX will be sent to pharmacy. No need to notify patient. Jennifer Hennessy LPN documented [facility] this encounter[facility]22 Miscellaneous Notes* Telephone Encounter - Nelson Robert APRN.CNP - 08/27/2021 1:02 PM EDT The following approved medication requests have been transmitted electronically. Pending Prescriptions Disp Refills PREDNISONE 20 MG TABLET 10 tablet 0 Sig: Take 2 tablets by mouth once daily. LENY: No Nelson Robert APRN.CNP * Telephone Encounter - Sukhi Marrero RN - 08/27/2021 12:51 PM EDT Patient has been identified by name and date of : Yes Patient phones for refill(s): Pending Prescriptions Disp Refills PREDNISONE 20 MG TABLET 10 tablet 3 Sig: Take 2 tablets by mouth once daily. LENY: No PREDNISONE 10 MG TABLET 30 tablet 2 Sig: Take 1 tablet by mouth every other day. LENY: No Patient reports she misplaced her current Prednisone bottle and is requesting provider send a new prescription to [facility]. Pharmacy won't fill current prescription. Date of last office visit with pcp: 07/17/2021 Future visit: 10/17/2021 Last 2 Encounter Wt Readings: Date: Wt: 07/17/2021 81.1 kg (178 lb 12.8 oz) 04/15/2021 78.9 kg (174 lb) Previous labs/tests for medication: Blood Pressure: BUN (mg/dL) Date Value 07/12/2021 19 05/11/2018 12 Sodium (mmol/L) Date Value 07/12/2021 136 05/11/2018 139 Last 1 Encounter BP Readings: Date: BP: 07/17/2021 126/78 Liver Function: ALT (U/L) Date Value 07/12/2021 11 05/11/2018 12 AST (U/L) Date Value 07/12/2021 15 05/11/2018 12 Please advise. Thank you. Sukhi Marrero RN documented in this encounterCorey [facility]04-25-[facility]22 Miscellaneous Notes* Telephone Encounter - Naima Haines Ma - 08/18/2021 2:48 PM EDT The following approved medication requests have been transmitted electronically. Signed Prescriptions Disp Refills HYDROcodone-acetaminophen (NORCO) 5-325 mg per tablet 40 tablet 0 Sig: Take 1 tablet by mouth twice daily as needed for pain for up to 30 days. LEROY Class: C-II LENY: No Authorizing Provider: YOSEPH FALL Ma * Telephone Encounter - Yoseph Fall MD - 08/18/2021 2:04 PM EDT OK to refill as ordered Taper down to #40 pills month Yoseph Fall MD * Telephone Encounter - Padmini Abbott RN - 08/18/2021 9:45 AM EDT Patient has been identified by name and date of : Yes Patient phones for refill(s): Pending Prescriptions Disp Refills HYDROCODONE 5 MG-ACETAMINOPHEN 325 MG TABLET 45 tablet 0 Sig: Take 1 tablet by mouth twice daily as needed for pain for up to 30 days. LEROY Class: C-II LENY: No Date of last office visit in primary care: 07/17/21, NOV: 10/17/21 Last 2 Encounter Wt Readings: Date: Wt: 07/17/2021 81.1 kg (178 lb 12.8 oz) 04/15/2021 78.9 kg (174 lb) Please advise. Thank you. Padmini Abbott RN documented in this encounterCore[facility]03-07-2017 History of Past illness Narrative* Problem Noted Date Resolved Date MRSA bacteremia 06/30/2016 03/22/2017 Bacteremia 06/23/2016 06/27/2016 Overview: - 2 Blood cultures on admission 06/21 positive for MRSA - B Cx on 06/22: G+ cocci in Clusters - ECHO done 06/23: fixed echodensity on the NCC (clip 28,29). Likely calcification but cannot rule out vegetation. Consider TOBY if high suspicion for endocarditis. Plan: - Vancomycin added to ABx regimen 06/22 - * - 6 weeks total treatment - COPAT started yesterday - F/U on ID recommendations - TOBY under general anesthesia - Not done as it will not foreign exchange dealer (same duration of ABx treatment) Cholelithiasis with acute ch olangitis with biliary obstruction 06/21/2016 06/27/2016 Overview: - Abdominal pain, Burnett positive - Cholestasis: AP: 255T bili 1.4 D bili 0.9 - A/P CT Scan showed cholelithiasis, gallbladder wall thickening, intrahepatic and extrahepatic bile duct dilation (choldocholithiasis + cholecystitis) - No fever, normal WBC (acute cholangitis less likely) - ERCP 06/22: purulent cholangitis + Choledocholithiasis - removal by biliary sphincterotomy and balloon extraction. - CT AP: Cholecystitis and cholelithiasis Plan: - Low threshold for antibiotics if signs of infection - Levofloxacin and Flagyl were started 06/21/2016 and stopped 06/23/2016 - Blood cultures were drawn - ERCP - DONE, cholelithiasis removed and purulent material drained - Vancomycin for MRSA in blood cultures Constipation 06/21/2016 06/27/2016 Overview: - Last BM 06/24/2016 - Decreased Flatulence - KUB at [facility] was normal (report available only) Plan: - Repeat KUB: No SBO - Colace and Miralax - Avoid excess Opiods for pain management Back pain 10/21/2010 07/15/2021 LUNG CANCER 04/13/2005 06/27/2016 Overview: - Remote history (2003) - CT Chest 06/05: No convincing CT evidence for local tumor recurrence or metastatic disease in the chest. 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, s/p right upper lobectomy and chemotherapy Other and unspecified alcoho l dependence, unspecified drinking behavior 08/11/2018 Malignant neoplasm of bronchus and lung, unspeci fied site 12/08/2006 Overview: Lung cancer documented as of this encounter (statuses as of 08/01/2021) [facility] of Past illness Narrative* Problem Noted Date Resolved Date MRSA bacteremia 06/30/2016 03/22/2017 Bacteremia 06/23/2016 06/27/2016 Overview: - 2 Blood cultures on admission 06/21 positive for MRSA - B Cx on 06/22: G+ cocci in Clusters - ECHO done 06/23: fixed echodensity on the NCC (clip 28,29). Likely calcification but cannot rule out vegetation. Consider TOBY if high suspicion for endocarditis. Plan: - Vancomycin added to ABx regimen 06/22 - * - 6 weeks total treatment - COPAT started yesterday - F/U on ID recommendations - TOBY under general anesthesia - Not done as it will not foreign exchange dealer (same duration of ABx treatment) Cholelithiasis with acute ch olangitis with biliary obstruction 06/21/2016 06/27/2016 Overview: - Abdominal pain, Burnett positive - Cholestasis: AP: 255T bili 1.4 D bili 0.9 - A/P CT Scan showed cholelithiasis, gallbladder wall thickening, intrahepatic and extrahepatic bile duct dilation (choldocholithiasis + cholecystitis) - No fever, normal WBC (acute cholangitis less likely) - ERCP 06/22: purulent cholangitis + Choledocholithiasis - removal by biliary sphincterotomy and balloon extraction. - CT AP: Cholecystitis and cholelithiasis Plan: - Low threshold for antibiotics if signs of infection - Levofloxacin and Flagyl were started 06/21/2016 and stopped 06/23/2016 - Blood cultures were drawn - ERCP - DONE, cholelithiasis removed and purulent material drained - Vancomycin for MRSA in blood cultures Constipation 06/21/2016 06/27/2016 Overview: - Last BM 06/24/2016 - Decreased Flatulence - KUB at [place] [facility] was normal (report available only) Plan: - Repeat KUB: No SBO - Colace and Miralax - Avoid excess Opiods for pain management Back pain 10/21/2010 07/15/2021 LUNG CANCER 04/13/2005 06/27/2016 Overview: - Remote history (2003) - CT Chest 06/05: No convincing CT evidence for local tumor recurrence or metastatic disease in the chest. 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, s/p right upper lobectomy and chemotherapy Other and unspecified alcoho l dependence, unspecified drinking behavior 08/11/2018 Malignant neoplasm of bronchus and lung, unspeci fied site 12/08/2006 Overview: Lung cancer documented as of this encounter (statuses as of 08/18/2021) [facility] of Past illness Narrative* Problem Noted Date Resolved Date MRSA bacteremia 06/30/2016 03/22/2017 Bacteremia 06/23/2016 06/27/2016 Overview: - 2 Blood cultures on admission 06/21 positive for MRSA - B Cx on 06/22: G+ cocci in Clusters - ECHO done 06/23: fixed echodensity on the NCC (clip 28,29). Likely calcification but cannot rule out vegetation. Consider TOBY if high suspicion for endocarditis. Plan: - Vancomycin added to ABx regimen 06/22 - * - 6 weeks total treatment - COPAT started yesterday - F/U on ID recommendations - TOBY under general anesthesia - Not done as it will not foreign exchange dealer (same duration of ABx treatment) Cholelithiasis with acute ch olangitis with biliary obstruction 06/21/2016 06/27/2016 Overview: - Abdominal pain, Burnett positive - Cholestasis: AP: 255T bili 1.4 D bili 0.9 - A/P CT Scan showed cholelithiasis, gallbladder wall thickening, intrahepatic and extrahepatic bile duct dilation (choldocholithiasis + cholecystitis) - No fever, normal WBC (acute cholangitis less likely) - ERCP 06/22: purulent cholangitis + Choledocholithiasis - removal by biliary sphincterotomy and balloon extraction. - CT AP: Cholecystitis and cholelithiasis Plan: - Low threshold for antibiotics if signs of infection - Levofloxacin and Flagyl were started 06/21/2016 and stopped 06/23/2016 - Blood cultures were drawn - ERCP - DONE, cholelithiasis removed and purulent material drained - Vancomycin for MRSA in blood cultures Constipation 06/21/2016 06/27/2016 Overview: - Last BM 06/24/2016 - Decreased Flatulence - KUB at [place] [facility] was normal (report available only) Plan: - Repeat KUB: No SBO - Colace and Miralax - Avoid excess Opiods for pain management Back pain 10/21/2010 07/15/2021 LUNG CANCER 04/13/2005 06/27/2016 Overview: - Remote history (2003) - CT Chest 06/05: No convincing CT evidence for local tumor recurrence or metastatic disease in the chest. 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, s/p right upper lobectomy and chemotherapy Other and unspecified alcoho l dependence, unspecified drinking behavior 08/11/2018 Malignant neoplasm of bronchus and lung, unspeci fied site 12/08/2006 Overview: Lung cancer documented as of this encounter (statuses as of 08/27/2021) [facility] of Past illness Narrative* Problem Noted Date Resolved Date MRSA bacteremia 06/30/2016 03/22/2017 Bacteremia 06/23/2016 06/27/2016 Overview: - 2 Blood cultures on admission 06/21 positive for MRSA - B Cx on 06/22: G+ cocci in Clusters - ECHO done 06/23: fixed echodensity on the NCC (clip 28,29). Likely calcification but cannot rule out vegetation. Consider TOBY if high suspicion for endocarditis. Plan: - Vancomycin added to ABx regimen 06/22 - * - 6 weeks total treatment - COPAT started yesterday - F/U on ID recommendations - TOBY under general anesthesia - Not done as it will not foreign exchange dealer (same duration of ABx treatment) Cholelithiasis with acute ch olangitis with biliary obstruction 06/21/2016 06/27/2016 Overview: - Abdominal pain, Burnett positive - Cholestasis: AP: 255T bili 1.4 D bili 0.9 - A/P CT Scan showed cholelithiasis, gallbladder wall thickening, intrahepatic and extrahepatic bile duct dilation (choldocholithiasis + cholecystitis) - No fever, normal WBC (acute cholangitis less likely) - ERCP 06/22: purulent cholangitis + Choledocholithiasis - removal by biliary sphincterotomy and balloon extraction. - CT AP: Cholecystitis and cholelithiasis Plan: - Low threshold for antibiotics if signs of infection - Levofloxacin and Flagyl were started 06/21/2016 and stopped 06/23/2016 - Blood cultures were drawn - ERCP - DONE, cholelithiasis removed and purulent material drained - Vancomycin for MRSA in blood cultures Constipation 06/21/2016 06/27/2016 Overview: - Last BM 06/24/2016 - Decreased Flatulence - KUB at [place] [facility] was normal (report available only) Plan: - Repeat KUB: No SBO - Colace and Miralax - Avoid excess Opiods for pain management Back pain 10/21/2010 07/15/2021 LUNG CANCER 04/13/2005 06/27/2016 Overview: - Remote history (2003) - CT Chest 06/05: No convincing CT evidence for local tumor recurrence or metastatic disease in the chest. 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, s/p right upper lobectomy and chemotherapy Other and unspecified alcoho l dependence, unspecified drinking behavior 08/11/2018 Malignant neoplasm of bronchus and lung, unspeci fied site 12/08/2006 Overview: Lung cancer documented as of this encounter (statuses as of 09/15/2021) [facility] illness Narrative* Problem Noted Date Resolved Date MRSA bacteremia 06/30/2016 03/22/2017 Bacteremia 06/23/2016 06/27/2016 Overview: - 2 Blood cultures on admission 06/21 positive for MRSA - B Cx on 06/22: G+ cocci in Clusters - ECHO done 06/23: fixed echodensity on the NCC (clip 28,29). Likely calcification but cannot rule out vegetation. Consider TOBY if high suspicion for endocarditis. Plan: - Vancomycin added to ABx regimen 06/22 - * - 6 weeks total treatment - COPAT started yesterday - F/U on ID recommendations - TOBY under general anesthesia - Not done as it will not foreign exchange dealer (same duration of ABx treatment) Cholelithiasis with acute ch olangitis with biliary obstruction 06/21/2016 06/27/2016 Overview: - Abdominal pain, Burnett positive - Cholestasis: AP: 255T bili 1.4 D bili 0.9 - A/P CT Scan showed cholelithiasis, gallbladder wall thickening, intrahepatic and extrahepatic bile duct dilation (choldocholithiasis + cholecystitis) - No fever, normal WBC (acute cholangitis less likely) - ERCP 06/22: purulent cholangitis + Choledocholithiasis - removal by biliary sphincterotomy and balloon extraction. - CT AP: Cholecystitis and cholelithiasis Plan: - Low threshold for antibiotics if signs of infection - Levofloxacin and Flagyl were started 06/21/2016 and stopped 06/23/2016 - Blood cultures were drawn - ERCP - DONE, cholelithiasis removed and purulent material drained - Vancomycin for MRSA in blood cultures Constipation 06/21/2016 06/27/2016 Overview: - Last BM 06/24/2016 - Decreased Flatulence - KUB at [place] [facility] was normal (report available only) Plan: - Repeat KUB: No SBO - Colace and Miralax - Avoid excess Opiods for pain management Back pain 10/21/2010 07/15/2021 LUNG CANCER 04/13/2005 06/27/2016 Overview: - Remote history (2003) - CT Chest 06/05: No convincing CT evidence for local tumor recurrence or metastatic disease in the chest. 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, s/p right upper lobectomy and chemotherapy Other and unspecified alcoho l dependence, unspecified drinking behavior 08/11/2018 Malignant neoplasm of bronchus and lung, unspeci fied site 12/08/2006 Overview: Lung cancer documented as of this encounter (statuses as of 09/30/2021) [facility] illness Narrative* Problem Noted Date Resolved Date MRSA bacteremia 06/30/2016 03/22/2017 Bacteremia 06/23/2016 06/27/2016 Overview: - 2 Blood cultures on admission 06/21 positive for MRSA - B Cx on 06/22: G+ cocci in Clusters - ECHO done 06/23: fixed echodensity on the NCC (clip 28,29). Likely calcification but cannot rule out vegetation. Consider TOBY if high suspicion for endocarditis. Plan: - Vancomycin added to ABx regimen 06/22 - * - 6 weeks total treatment - COPAT started yesterday - F/U on ID recommendations - TOBY under general anesthesia - Not done as it will not foreign exchange dealer (same duration of ABx treatment) Cholelithiasis with acute ch olangitis with biliary obstruction 06/21/2016 06/27/2016 Overview: - Abdominal pain, Burnett positive - Cholestasis: AP: 255T bili 1.4 D bili 0.9 - A/P CT Scan showed cholelithiasis, gallbladder wall thickening, intrahepatic and extrahepatic bile duct dilation (choldocholithiasis + cholecystitis) - No fever, normal WBC (acute cholangitis less likely) - ERCP 06/22: purulent cholangitis + Choledocholithiasis - removal by biliary sphincterotomy and balloon extraction. - CT AP: Cholecystitis and cholelithiasis Plan: - Low threshold for antibiotics if signs of infection - Levofloxacin and Flagyl were started 06/21/2016 and stopped 06/23/2016 - Blood cultures were drawn - ERCP - DONE, cholelithiasis removed and purulent material drained - Vancomycin for MRSA in blood cultures Constipation 06/21/2016 06/27/2016 Overview: - Last BM 06/24/2016 - Decreased Flatulence - KUB at [place] [facility] was normal (report available only) Plan: - Repeat KUB: No SBO - Colace and Miralax - Avoid excess Opiods for pain management Back pain 10/21/2010 07/15/2021 LUNG CANCER 04/13/2005 06/27/2016 Overview: - Remote history (2003) - CT Chest 06/05: No convincing CT evidence for local tumor recurrence or metastatic disease in the chest. 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, s/p right upper lobectomy and chemotherapy Other and unspecified alcoho l dependence, unspecified drinking behavior 08/11/2018 Malignant neoplasm of bronchus and lung, unspeci fied site 12/08/2006 Overview: Lung cancer documented as of this encounter (statuses as of 10/17/2021) [facility] illness Narrative* Problem Noted Date Resolved Date MRSA bacteremia 06/30/2016 03/22/2017 Bacteremia 06/23/2016 06/27/2016 Overview: - 2 Blood cultures on admission 06/21 positive for MRSA - B Cx on 06/22: G+ cocci in Clusters - ECHO done 06/23: fixed echodensity on the NCC (clip 28,29). Likely calcification but cannot rule out vegetation. Consider TOBY if high suspicion for endocarditis. Plan: - Vancomycin added to ABx regimen 06/22 - * - 6 weeks total treatment - COPAT started yesterday - F/U on ID recommendations - TOBY under general anesthesia - Not done as it will not foreign exchange dealer (same duration of ABx treatment) Cholelithiasis with acute ch olangitis with biliary obstruction 06/21/2016 06/27/2016 Overview: - Abdominal pain, Burnett positive - Cholestasis: AP: 255T bili 1.4 D bili 0.9 - A/P CT Scan showed cholelithiasis, gallbladder wall thickening, intrahepatic and extrahepatic bile duct dilation (choldocholithiasis + cholecystitis) - No fever, normal WBC (acute cholangitis less likely) - ERCP 06/22: purulent cholangitis + Choledocholithiasis - removal by biliary sphincterotomy and balloon extraction. - CT AP: Cholecystitis and cholelithiasis Plan: - Low threshold for antibiotics if signs of infection - Levofloxacin and Flagyl were started 06/21/2016 and stopped 06/23/2016 - Blood cultures were drawn - ERCP - DONE, cholelithiasis removed and purulent material drained - Vancomycin for MRSA in blood cultures Constipation 06/21/2016 06/27/2016 Overview: - Last BM 06/24/2016 - Decreased Flatulence - KUB at [place] [facility] was normal (report available only) Plan: - Repeat KUB: No SBO - Colace and Miralax - Avoid excess Opiods for pain management Back pain 10/21/2010 07/15/2021 LUNG CANCER 04/13/2005 06/27/2016 Overview: - Remote history (2003) - CT Chest 06/05: No convincing CT evidence for local tumor recurrence or metastatic disease in the chest. 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, s/p right upper lobectomy and chemotherapy Other and unspecified alcoho l dependence, unspecified drinking behavior 08/11/2018 Malignant neoplasm of bronchus and lung, unspeci fied site 12/08/2006 Overview: Lung cancer documented as of this encounter (statuses as of 11/17/2021) [facility] Narrative* Problem Noted Date Resolved Date MRSA bacteremia 06/30/2016 03/22/2017 Bacteremia 06/23/2016 06/27/2016 Overview: - 2 Blood cultures on admission 06/21 positive for MRSA - B Cx on 06/22: G+ cocci in Clusters - ECHO done 06/23: fixed echodensity on the NCC (clip 28,29). Likely calcification but cannot rule out vegetation. Consider TOBY if high suspicion for endocarditis. Plan: - Vancomycin added to ABx regimen 06/22 - * - 6 weeks total treatment - COPAT started yesterday - F/U on ID recommendations - TOBY under general anesthesia - Not done as it will not foreign exchange dealer (same duration of ABx treatment) Cholelithiasis with acute ch olangitis with biliary obstruction 06/21/2016 06/27/2016 Overview: - Abdominal pain, Burnett positive - Cholestasis: AP: 255T bili 1.4 D bili 0.9 - A/P CT Scan showed cholelithiasis, gallbladder wall thickening, intrahepatic and extrahepatic bile duct dilation (choldocholithiasis + cholecystitis) - No fever, normal WBC (acute cholangitis less likely) - ERCP 06/22: purulent cholangitis + Choledocholithiasis - removal by biliary sphincterotomy and balloon extraction. - CT AP: Cholecystitis and cholelithiasis Plan: - Low threshold for antibiotics if signs of infection - Levofloxacin and Flagyl were started 06/21/2016 and stopped 06/23/2016 - Blood cultures were drawn - ERCP - DONE, cholelithiasis removed and purulent material drained - Vancomycin for MRSA in blood cultures Constipation 06/21/2016 06/27/2016 Overview: - Last BM 06/24/2016 - Decreased Flatulence - KUB at [place] [facility] was normal (report available only) Plan: - Repeat KUB: No SBO - Colace and Miralax - Avoid excess Opiods for pain management Back pain 10/21/2010 07/15/2021 LUNG CANCER 04/13/2005 06/27/2016 Overview: - Remote history (2003) - CT Chest 06/05: No convincing CT evidence for local tumor recurrence or metastatic disease in the chest. 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, s/p right upper lobectomy and chemotherapy Other and unspecified alcoho l dependence, unspecified drinking behavior 08/11/2018 Malignant neoplasm of bronchus and lung, unspeci fied site 12/08/2006 Overview: Lung cancer documented as of this encounter (statuses as of 12/18/2021) [facility] Narrative* Problem Noted Date Resolved Date MRSA bacteremia 06/30/2016 03/22/2017 Bacteremia 06/23/2016 06/27/2016 Overview: - 2 Blood cultures on admission 06/21 positive for MRSA - B Cx on 06/22: G+ cocci in Clusters - ECHO done 06/23: fixed echodensity on the NCC (clip 28,29). Likely calcification but cannot rule out vegetation. Consider TOBY if high suspicion for endocarditis. Plan: - Vancomycin added to ABx regimen 06/22 - * - 6 weeks total treatment - COPAT started yesterday - F/U on ID recommendations - TOBY under general anesthesia - Not done as it will not foreign exchange dealer (same duration of ABx treatment) Cholelithiasis with acute ch olangitis with biliary obstruction 06/21/2016 06/27/2016 Overview: - Abdominal pain, Burnett positive - Cholestasis: AP: 255T bili 1.4 D bili 0.9 - A/P CT Scan showed cholelithiasis, gallbladder wall thickening, intrahepatic and extrahepatic bile duct dilation (choldocholithiasis + cholecystitis) - No fever, normal WBC (acute cholangitis less likely) - ERCP 06/22: purulent cholangitis + Choledocholithiasis - removal by biliary sphincterotomy and balloon extraction. - CT AP: Cholecystitis and cholelithiasis Plan: - Low threshold for antibiotics if signs of infection - Levofloxacin and Flagyl were started 06/21/2016 and stopped 06/23/2016 - Blood cultures were drawn - ERCP - DONE, cholelithiasis removed and purulent material drained - Vancomycin for MRSA in blood cultures Constipation 06/21/2016 06/27/2016 Overview: - Last BM 06/24/2016 - Decreased Flatulence - KUB at [place] [facility] was normal (report available only) Plan: - Repeat KUB: No SBO - Colace and Miralax - Avoid excess Opiods for pain management Back pain 10/21/2010 07/15/2021 LUNG CANCER 04/13/2005 06/27/2016 Overview: - Remote history (2003) - CT Chest 06/05: No convincing CT evidence for local tumor recurrence or metastatic disease in the chest. 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, s/p right upper lobectomy and chemotherapy Other and unspecified alcoho l dependence, unspecified drinking behavior 08/11/2018 Malignant neoplasm of bronchus and lung, unspeci fied site 12/08/2006 Overview: Lung cancer documented as of this encounter (statuses as of 01/08/2022) [facility] Narrative* Problem Noted Date Resolved Date MRSA bacteremia 06/30/2016 03/22/2017 Bacteremia 06/23/2016 06/27/2016 Overview: - 2 Blood cultures on admission 06/21 positive for MRSA - B Cx on 06/22: G+ cocci in Clusters - ECHO done 06/23: fixed echodensity on the NCC (clip 28,29). Likely calcification but cannot rule out vegetation. Consider TOBY if high suspicion for endocarditis. Plan: - Vancomycin added to ABx regimen 06/22 - * - 6 weeks total treatment - COPAT started yesterday - F/U on ID recommendations - TOBY under general anesthesia - Not done as it will not foreign exchange dealer (same duration of ABx treatment) Cholelithiasis with acute ch olangitis with biliary obstruction 06/21/2016 06/27/2016 Overview: - Abdominal pain, Burnett positive - Cholestasis: AP: 255T bili 1.4 D bili 0.9 - A/P CT Scan showed cholelithiasis, gallbladder wall thickening, intrahepatic and extrahepatic bile duct dilation (choldocholithiasis + cholecystitis) - No fever, normal WBC (acute cholangitis less likely) - ERCP 06/22: purulent cholangitis + Choledocholithiasis - removal by biliary sphincterotomy and balloon extraction. - CT AP: Cholecystitis and cholelithiasis Plan: - Low threshold for antibiotics if signs of infection - Levofloxacin and Flagyl were started 06/21/2016 and stopped 06/23/2016 - Blood cultures were drawn - ERCP - DONE, cholelithiasis removed and purulent material drained - Vancomycin for MRSA in blood cultures Constipation 06/21/2016 06/27/2016 Overview: - Last BM 06/24/2016 - Decreased Flatulence - KUB at [place] [facility] was normal (report available only) Plan: - Repeat KUB: No SBO - Colace and Miralax - Avoid excess Opiods for pain management Back pain 10/21/2010 07/15/2021 LUNG CANCER 04/13/2005 06/27/2016 Overview: - Remote history (2003) - CT Chest 06/05: No convincing CT evidence for local tumor recurrence or metastatic disease in the chest. 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, s/p right upper lobectomy and chemotherapy Other and unspecified alcoho l dependence, unspecified drinking behavior 08/11/2018 Malignant neoplasm of bronchus and lung, unspeci fied site 12/08/2006 Overview: Lung cancer documented as of this encounter (statuses as of 01/13/2022) [facility]03-07-2017 History of Past illness Narrative* Problem Noted Date Resolved Date MRSA bacteremia 06/30/2016 03/22/2017 Bacteremia 06/23/2016 06/27/2016 Overview: - 2 Blood cultures on admission 06/21 positive for MRSA - B Cx on 06/22: G+ cocci in Clusters - ECHO done 06/23: fixed echodensity on the NCC (clip 28,29). Likely calcification but cannot rule out vegetation. Consider TOBY if high suspicion for endocarditis. Plan: - Vancomycin added to ABx regimen 06/22 - * - 6 weeks total treatment - COPAT started yesterday - F/U on ID recommendations - TOBY under general anesthesia - Not done as it will not foreign exchange dealer (same duration of ABx treatment) Cholelithiasis with acute ch olangitis with biliary obstruction 06/21/2016 06/27/2016 Overview: - Abdominal pain, Burnett positive - Cholestasis: AP: 255T bili 1.4 D bili 0.9 - A/P CT Scan showed cholelithiasis, gallbladder wall thickening, intrahepatic and extrahepatic bile duct dilation (choldocholithiasis + cholecystitis) - No fever, normal WBC (acute cholangitis less likely) - ERCP 06/22: purulent cholangitis + Choledocholithiasis - removal by biliary sphincterotomy and balloon extraction. - CT AP: Cholecystitis and cholelithiasis Plan: - Low threshold for antibiotics if signs of infection - Levofloxacin and Flagyl were started 06/21/2016 and stopped 06/23/2016 - Blood cultures were drawn - ERCP - DONE, cholelithiasis removed and purulent material drained - Vancomycin for MRSA in blood cultures Constipation 06/21/2016 06/27/2016 Overview: - Last BM 06/24/2016 - Decreased Flatulence - KUB at [place] [facility] was normal (report available only) Plan: - Repeat KUB: No SBO - Colace and Miralax - Avoid excess Opiods for pain management Back pain 10/21/2010 07/15/2021 LUNG CANCER 04/13/2005 06/27/2016 Overview: - Remote history (2003) - CT Chest 06/05: No convincing CT evidence for local tumor recurrence or metastatic disease in the chest. 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, s/p right upper lobectomy and chemotherapy Other and unspecified alcoho l dependence, unspecified drinking behavior 08/11/2018 Malignant neoplasm of bronchus and lung, unspeci fied site 12/08/2006 Overview: Lung cancer documented as of this encounter (statuses as of 01/20/2022) [facility]03-07[facility]2017 History of Past illness Narrative* Problem Noted Date Resolved Date MRSA bacteremia 06/30/2016 03/22/2017 Bacteremia 06/23/2016 06/27/2016 Overview: - 2 Blood cultures on admission 06/21 positive for MRSA - B Cx on 06/22: G+ cocci in Clusters - ECHO done 06/23: fixed echodensity on the NCC (clip 28,29). Likely calcification but cannot rule out vegetation. Consider TOBY if high suspicion for endocarditis. Plan: - Vancomycin added to ABx regimen 06/22 - * - 6 weeks total treatment - COPAT started yesterday - F/U on ID recommendations - TOBY under general anesthesia - Not done as it will not foreign exchange dealer (same duration of ABx treatment) Cholelithiasis with acute ch olangitis with biliary obstruction 06/21/2016 06/27/2016 Overview: - Abdominal pain, Burnett positive - Cholestasis: AP: 255T bili 1.4 D bili 0.9 - A/P CT Scan showed cholelithiasis, gallbladder wall thickening, intrahepatic and extrahepatic bile duct dilation (choldocholithiasis + cholecystitis) - No fever, normal WBC (acute cholangitis less likely) - ERCP 06/22: purulent cholangitis + Choledocholithiasis - removal by biliary sphincterotomy and balloon extraction. - CT AP: Cholecystitis and cholelithiasis Plan: - Low threshold for antibiotics if signs of infection - Levofloxacin and Flagyl were started 06/21/2016 and stopped 06/23/2016 - Blood cultures were drawn - ERCP - DONE, cholelithiasis removed and purulent material drained - Vancomycin for MRSA in blood cultures Constipation 06/21/2016 06/27/2016 Overview: - Last BM 06/24/2016 - Decreased Flatulence - KUB at [place] [facility] was normal (report available only) Plan: - Repeat KUB: No SBO - Colace and Miralax - Avoid excess Opiods for pain management Back pain 10/21/2010 07/15/2021 LUNG CANCER 04/13/2005 06/27/2016 Overview: - Remote history (2003) - CT Chest 06/05: No convincing CT evidence for local tumor recurrence or metastatic disease in the chest. 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, s/p right upper lobectomy and chemotherapy Other and unspecified alcoho l dependence, unspecified drinking behavior 08/11/2018 Malignant neoplasm of bronchus and lung, unspeci fied site 12/08/2006 Overview: Lung cancer documented as of this encounter (statuses as of 02/20/2022) [facility]2017 History of Past illness Narrative* Problem Noted Date Resolved Date MRSA bacteremia 06/30/2016 03/22/2017 Bacteremia 06/23/2016 06/27/2016 Overview: - 2 Blood cultures on admission 06/21 positive for MRSA - B Cx on 06/22: G+ cocci in Clusters - ECHO done 06/23: fixed echodensity on the NCC (clip 28,29). Likely calcification but cannot rule out vegetation. Consider TOBY if high suspicion for endocarditis. Plan: - Vancomycin added to ABx regimen 06/22 - * - 6 weeks total treatment - COPAT started yesterday - F/U on ID recommendations - TOBY under general anesthesia - Not done as it will not foreign exchange dealer (same duration of ABx treatment) Cholelithiasis with acute ch olangitis with biliary obstruction 06/21/2016 06/27/2016 Overview: - Abdominal pain, Burnett positive - Cholestasis: AP: 255T bili 1.4 D bili 0.9 - A/P CT Scan showed cholelithiasis, gallbladder wall thickening, intrahepatic and extrahepatic bile duct dilation (choldocholithiasis + cholecystitis) - No fever, normal WBC (acute cholangitis less likely) - ERCP 06/22: purulent cholangitis + Choledocholithiasis - removal by biliary sphincterotomy and balloon extraction. - CT AP: Cholecystitis and cholelithiasis Plan: - Low threshold for antibiotics if signs of infection - Levofloxacin and Flagyl were started 06/21/2016 and stopped 06/23/2016 - Blood cultures were drawn - ERCP - DONE, cholelithiasis removed and purulent material drained - Vancomycin for MRSA in blood cultures Constipation 06/21/2016 06/27/2016 Overview: - Last BM 06/24/2016 - Decreased Flatulence - KUB at [place] [facility] was normal (report available only) Plan: - Repeat KUB: No SBO - Colace and Miralax - Avoid excess Opiods for pain management Back pain 10/21/2010 07/15/2021 LUNG CANCER 04/13/2005 06/27/2016 Overview: - Remote history (2003) - CT Chest 06/05: No convincing CT evidence for local tumor recurrence or metastatic disease in the chest. 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, s/p right upper lobectomy and chemotherapy Other and unspecified alcoho l dependence, unspecified drinking behavior 08/11/2018 Malignant neoplasm of bronchus and lung, unspeci fied site 12/08/2006 Overview: Lung cancer documented as of this encounter (statuses as of 02/27/2022) [facility]2017 History of Past illness Narrative* Problem Noted Date Resolved Date MRSA bacteremia 06/30/2016 03/22/2017 Bacteremia 06/23/2016 06/27/2016 Overview: - 2 Blood cultures on admission 06/21 positive for MRSA - B Cx on 06/22: G+ cocci in Clusters - ECHO done 06/23: fixed echodensity on the NCC (clip 28,29). Likely calcification but cannot rule out vegetation. Consider TOBY if high suspicion for endocarditis. Plan: - Vancomycin added to ABx regimen 06/22 - * - 6 weeks total treatment - COPAT started yesterday - F/U on ID recommendations - TOBY under general anesthesia - Not done as it will not foreign exchange dealer (same duration of ABx treatment) Cholelithiasis with acute ch olangitis with biliary obstruction 06/21/2016 06/27/2016 Overview: - Abdominal pain, Burnett positive - Cholestasis: AP: 255T bili 1.4 D bili 0.9 - A/P CT Scan showed cholelithiasis, gallbladder wall thickening, intrahepatic and extrahepatic bile duct dilation (choldocholithiasis + cholecystitis) - No fever, normal WBC (acute cholangitis less likely) - ERCP 06/22: purulent cholangitis + Choledocholithiasis - removal by biliary sphincterotomy and balloon extraction. - CT AP: Cholecystitis and cholelithiasis Plan: - Low threshold for antibiotics if signs of infection - Levofloxacin and Flagyl were started 06/21/2016 and stopped 06/23/2016 - Blood cultures were drawn - ERCP - DONE, cholelithiasis removed and purulent material drained - Vancomycin for MRSA in blood cultures Constipation 06/21/2016 06/27/2016 Overview: - Last BM 06/24/2016 - Decreased Flatulence - KUB at [place] [facility] was normal (report available only) Plan: - Repeat KUB: No SBO - Colace and Miralax - Avoid excess Opiods for pain management Back pain 10/21/2010 07/15/2021 LUNG CANCER 04/13/2005 06/27/2016 Overview: - Remote history (2003) - CT Chest 06/05: No convincing CT evidence for local tumor recurrence or metastatic disease in the chest. 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, s/p right upper lobectomy and chemotherapy Other and unspecified alcoho l dependence, unspecified drinking behavior 08/11/2018 Malignant neoplasm of bronchus and lung, unspeci fied site 12/08/2006 Overview: Lung cancer documented as of this encounter (statuses as of 04/26/2022) [facility] History of Past illness Narrative* Problem Noted Date Resolved Date MRSA bacteremia 06/30/2016 03/22/2017 Bacteremia 06/23/2016 06/27/2016 Overview: - 2 Blood cultures on admission 06/21 positive for MRSA - B Cx on 06/22: G+ cocci in Clusters - ECHO done 06/23: fixed echodensity on the NCC (clip 28,29). Likely calcification but cannot rule out vegetation. Consider TOBY if high suspicion for endocarditis. Plan: - Vancomycin added to ABx regimen 06/22 - * - 6 weeks total treatment - COPAT started yesterday - F/U on ID recommendations - TOBY under general anesthesia - Not done as it will not foreign exchange dealer (same duration of ABx treatment) Cholelithiasis with acute ch olangitis with biliary obstruction 06/21/2016 06/27/2016 Overview: - Abdominal pain, Burnett positive - Cholestasis: AP: 255T bili 1.4 D bili 0.9 - A/P CT Scan showed cholelithiasis, gallbladder wall thickening, intrahepatic and extrahepatic bile duct dilation (choldocholithiasis + cholecystitis) - No fever, normal WBC (acute cholangitis less likely) - ERCP 06/22: purulent cholangitis + Choledocholithiasis - removal by biliary sphincterotomy and balloon extraction. - CT AP: Cholecystitis and cholelithiasis Plan: - Low threshold for antibiotics if signs of infection - Levofloxacin and Flagyl were started 06/21/2016 and stopped 06/23/2016 - Blood cultures were drawn - ERCP - DONE, cholelithiasis removed and purulent material drained - Vancomycin for MRSA in blood cultures Constipation 06/21/2016 06/27/2016 Overview: - Last BM 06/24/2016 - Decreased Flatulence - KUB at [place] [facility] was normal (report available only) Plan: - Repeat KUB: No SBO - Colace and Miralax - Avoid excess Opiods for pain management Back pain 10/21/2010 07/15/2021 LUNG CANCER 04/13/2005 06/27/2016 Overview: - Remote history (2003) - CT Chest 06/05: No convincing CT evidence for local tumor recurrence or metastatic disease in the chest. 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, s/p right upper lobectomy and chemotherapy Other and unspecified alcoho l dependence, unspecified drinking behavior 08/11/2018 Malignant neoplasm of bronchus and lung, unspeci fied site 12/08/2006 Overview: Lung cancer documented as of this encounter (statuses as of 05/02/2022) [facility]2017 History of Past illness Narrative* Problem Noted Date Resolved Date MRSA bacteremia 06/30/2016 03/22/2017 Bacteremia 06/23/2016 06/27/2016 Overview: - 2 Blood cultures on admission 06/21 positive for MRSA - B Cx on 06/22: G+ cocci in Clusters - ECHO done 06/23: fixed echodensity on the NCC (clip 28,29). Likely calcification but cannot rule out vegetation. Consider TOBY if high suspicion for endocarditis. Plan: - Vancomycin added to ABx regimen 06/22 - * - 6 weeks total treatment - COPAT started yesterday - F/U on ID recommendations - TOBY under general anesthesia - Not done as it will not foreign exchange dealer (same duration of ABx treatment) Cholelithiasis with acute ch olangitis with biliary obstruction 06/21/2016 06/27/2016 Overview: - Abdominal pain, Burnett positive - Cholestasis: AP: 255T bili 1.4 D bili 0.9 - A/P CT Scan showed cholelithiasis, gallbladder wall thickening, intrahepatic and extrahepatic bile duct dilation (choldocholithiasis + cholecystitis) - No fever, normal WBC (acute cholangitis less likely) - ERCP 06/22: purulent cholangitis + Choledocholithiasis - removal by biliary sphincterotomy and balloon extraction. - CT AP: Cholecystitis and cholelithiasis Plan: - Low threshold for antibiotics if signs of infection - Levofloxacin and Flagyl were started 06/21/2016 and stopped 06/23/2016 - Blood cultures were drawn - ERCP - DONE, cholelithiasis removed and purulent material drained - Vancomycin for MRSA in blood cultures Constipation 06/21/2016 06/27/2016 Overview: - Last BM 06/24/2016 - Decreased Flatulence - KUB at [place] [facility] was normal (report available only) Plan: - Repeat KUB: No SBO - Colace and Miralax - Avoid excess Opiods for pain management Back pain 10/21/2010 07/15/2021 LUNG CANCER 04/13/2005 06/27/2016 Overview: - Remote history (2003) - CT Chest 06/05: No convincing CT evidence for local tumor recurrence or metastatic disease in the chest. 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, s/p right upper lobectomy and chemotherapy Other and unspecified alcoho l dependence, unspecified drinking behavior 08/11/2018 Malignant neoplasm of bronchus and lung, unspeci fied site 12/08/2006 Overview: Lung cancer documented as of this encounter (statuses as of 05/05/2022) [facility]2017 History of Past illness Narrative* Problem Noted Date Resolved Date MRSA bacteremia 06/30/2016 03/22/2017 Bacteremia 06/23/2016 06/27/2016 Overview: - 2 Blood cultures on admission 06/21 positive for MRSA - B Cx on 06/22: G+ cocci in Clusters - ECHO done 06/23: fixed echodensity on the NCC (clip 28,29). Likely calcification but cannot rule out vegetation. Consider TOBY if high suspicion for endocarditis. Plan: - Vancomycin added to ABx regimen 06/22 - * - 6 weeks total treatment - COPAT started yesterday - F/U on ID recommendations - TOBY under general anesthesia - Not done as it will not foreign exchange dealer (same duration of ABx treatment) Cholelithiasis with acute ch olangitis with biliary obstruction 06/21/2016 06/27/2016 Overview: - Abdominal pain, Burnett positive - Cholestasis: AP: 255T bili 1.4 D bili 0.9 - A/P CT Scan showed cholelithiasis, gallbladder wall thickening, intrahepatic and extrahepatic bile duct dilation (choldocholithiasis + cholecystitis) - No fever, normal WBC (acute cholangitis less likely) - ERCP 06/22: purulent cholangitis + Choledocholithiasis - removal by biliary sphincterotomy and balloon extraction. - CT AP: Cholecystitis and cholelithiasis Plan: - Low threshold for antibiotics if signs of infection - Levofloxacin and Flagyl were started 06/21/2016 and stopped 06/23/2016 - Blood cultures were drawn - ERCP - DONE, cholelithiasis removed and purulent material drained - Vancomycin for MRSA in blood cultures Constipation 06/21/2016 06/27/2016 Overview: - Last BM 06/24/2016 - Decreased Flatulence - KUB at [place] [facility] was normal (report available only) Plan: - Repeat KUB: No SBO - Colace and Miralax - Avoid excess Opiods for pain management Back pain 10/21/2010 07/15/2021 LUNG CANCER 04/13/2005 06/27/2016 Overview: - Remote history (2003) - CT Chest 06/05: No convincing CT evidence for local tumor recurrence or metastatic disease in the chest. 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, s/p right upper lobectomy and chemotherapy Other and unspecified alcoho l dependence, unspecified drinking behavior 08/11/2018 Malignant neoplasm of bronchus and lung, unspeci fied site 12/08/2006 Overview: Lung cancer documented as of this encounter (statuses as of 05/15/2022) [facility] History of Past illness Narrative* Problem Noted Date Resolved Date MRSA bacteremia 06/30/2016 03/22/2017 Bacteremia 06/23/2016 06/27/2016 Overview: - 2 Blood cultures on admission 06/21 positive for MRSA - B Cx on 06/22: G+ cocci in Clusters - ECHO done 06/23: fixed echodensity on the NCC (clip 28,29). Likely calcification but cannot rule out vegetation. Consider TOBY if high suspicion for endocarditis. Plan: - Vancomycin added to ABx regimen 06/22 - * - 6 weeks total treatment - COPAT started yesterday - F/U on ID recommendations - TOBY under general anesthesia - Not done as it will not foreign exchange dealer (same duration of ABx treatment) Cholelithiasis with acute ch olangitis with biliary obstruction 06/21/2016 06/27/2016 Overview: - Abdominal pain, Burnett positive - Cholestasis: AP: 255T bili 1.4 D bili 0.9 - A/P CT Scan showed cholelithiasis, gallbladder wall thickening, intrahepatic and extrahepatic bile duct dilation (choldocholithiasis + cholecystitis) - No fever, normal WBC (acute cholangitis less likely) - ERCP 06/22: purulent cholangitis + Choledocholithiasis - removal by biliary sphincterotomy and balloon extraction. - CT AP: Cholecystitis and cholelithiasis Plan: - Low threshold for antibiotics if signs of infection - Levofloxacin and Flagyl were started 06/21/2016 and stopped 06/23/2016 - Blood cultures were drawn - ERCP - DONE, cholelithiasis removed and purulent material drained - Vancomycin for MRSA in blood cultures Constipation 06/21/2016 06/27/2016 Overview: - Last BM 06/24/2016 - Decreased Flatulence - KUB at [place] [facility] was normal (report available only) Plan: - Repeat KUB: No SBO - Colace and Miralax - Avoid excess Opiods for pain management Back pain 10/21/2010 07/15/2021 LUNG CANCER 04/13/2005 06/27/2016 Overview: - Remote history (2003) - CT Chest 06/05: No convincing CT evidence for local tumor recurrence or metastatic disease in the chest. 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, s/p right upper lobectomy and chemotherapy Other and unspecified alcoho l dependence, unspecified drinking behavior 08/11/2018 Malignant neoplasm of bronchus and lung, unspeci fied site 12/08/2006 Overview: Lung cancer documented as of this encounter (statuses as of 06/08/2022) [facility] History of Past illness Narrative* Problem Noted Date Resolved Date MRSA bacteremia 06/30/2016 03/22/2017 Bacteremia 06/23/2016 06/27/2016 Overview: - 2 Blood cultures on admission 2/26 positive for MRSA - B Cx on 06/22: G+ cocci in Clusters - ECHO done 06/23: fixed echodensity on the NCC (clip 28,29). Likely calcification but cannot rule out vegetation. Consider TOBY if high suspicion for endocarditis. Plan: - Vancomycin added to ABx regimen 06/22 - * - 6 weeks total treatment - COPAT started yesterday - F/U on ID recommendations - TOBY under general anesthesia - Not done as it will not foreign exchange dealer (same duration of ABx treatment) Cholelithiasis with acute ch olangitis with biliary obstruction 06/21/2016 06/27/2016 Overview: - Abdominal pain, Burnett positive - Cholestasis: AP: 255T bili 1.4 D bili 0.9 - A/P CT Scan showed cholelithiasis, gallbladder wall thickening, intrahepatic and extrahepatic bile duct dilation (choldocholithiasis + cholecystitis) - No fever, normal WBC (acute cholangitis less likely) - ERCP 06/22: purulent cholangitis + Choledocholithiasis - removal by biliary sphincterotomy and balloon extraction. - CT AP: Cholecystitis and cholelithiasis Plan: - Low threshold for antibiotics if signs of infection - Levofloxacin and Flagyl were started 06/21/2016 and stopped 06/23/2016 - Blood cultures were drawn - ERCP - DONE, cholelithiasis removed and purulent material drained - Vancomycin for MRSA in blood cultures Constipation 06/21/2016 06/27/2016 Overview: - Last BM 06/24/2016 - Decreased Flatulence - KUB at [place] [facility] was normal (report available only) Plan: - Repeat KUB: No SBO - Colace and Miralax - Avoid excess Opiods for pain management Back pain 10/21/2010 07/15/2021 LUNG CANCER 04/13/2005 06/27/2016 Overview: - Remote history (2003) - CT Chest 06/05: No convincing CT evidence for local tumor recurrence or metastatic disease in the chest. 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, s/p right upper lobectomy and chemotherapy Other and unspecified alcoho l dependence, unspecified drinking behavior 08/11/2018 Malignant neoplasm of bronchus and lung, unspeci fied site 12/08/2006 Overview: Lung cancer documented as of this encounter (statuses as of 06/29/2022) [facility] History of Past illness Narrative* Problem Noted Date Resolved Date MRSA bacteremia 06/30/2016 03/22/2017 Bacteremia 06/23/2016 06/27/2016 Overview: - 2 Blood cultures on admission 06/21 positive for MRSA - B Cx on 06/22: G+ cocci in Clusters - ECHO done 06/23: fixed echodensity on the NCC (clip 28,29). Likely calcification but cannot rule out vegetation. Consider TOBY if high suspicion for endocarditis. Plan: - Vancomycin added to ABx regimen 06/22 - * - 6 weeks total treatment - COPAT started yesterday - F/U on ID recommendations - TOBY under general anesthesia - Not done as it will not foreign exchange dealer (same duration of ABx treatment) Cholelithiasis with acute ch olangitis with biliary obstruction 06/21/2016 06/27/2016 Overview: - Abdominal pain, Burnett positive - Cholestasis: AP: 255T bili 1.4 D bili 0.9 - A/P CT Scan showed cholelithiasis, gallbladder wall thickening, intrahepatic and extrahepatic bile duct dilation (choldocholithiasis + cholecystitis) - No fever, normal WBC (acute cholangitis less likely) - ERCP 06/22: purulent cholangitis + Choledocholithiasis - removal by biliary sphincterotomy and balloon extraction. - CT AP: Cholecystitis and cholelithiasis Plan: - Low threshold for antibiotics if signs of infection - Levofloxacin and Flagyl were started 06/21/2016 and stopped 06/23/2016 - Blood cultures were drawn - ERCP - DONE, cholelithiasis removed and purulent material drained - Vancomycin for MRSA in blood cultures Constipation 06/21/2016 06/27/2016 Overview: - Last BM 06/24/2016 - Decreased Flatulence - KUB at [place] [facility] was normal (report available only) Plan: - Repeat KUB: No SBO - Colace and Miralax - Avoid excess Opiods for pain management Back pain 10/21/2010 07/15/2021 LUNG CANCER 04/13/2005 06/27/2016 Overview: - Remote history (2003) - CT Chest 06/05: No convincing CT evidence for local tumor recurrence or metastatic disease in the chest. 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, s/p right upper lobectomy and chemotherapy Other and unspecified alcoho l dependence, unspecified drinking behavior 08/11/2018 Malignant neoplasm of bronchus and lung, unspeci fied site 12/08/2006 Overview: Lung cancer documented as of this encounter (statuses as of 07/03/2022) [facility]03-07[facility]2017 History of Past illness Narrative* Problem Noted Date Resolved Date MRSA bacteremia 06/30/2016 03/22/2017 Bacteremia 06/23/2016 06/27/2016 Overview: - 2 Blood cultures on admission 06/21 positive for MRSA - B Cx on 06/22: G+ cocci in Clusters - ECHO done 06/23: fixed echodensity on the NCC (clip 28,29). Likely calcification but cannot rule out vegetation. Consider TOBY if high suspicion for endocarditis. Plan: - Vancomycin added to ABx regimen 06/22 - * - 6 weeks total treatment - COPAT started yesterday - F/U on ID recommendations - TOBY under general anesthesia - Not done as it will not foreign exchange dealer (same duration of ABx treatment) Cholelithiasis with acute ch olangitis with biliary obstruction 06/21/2016 06/27/2016 Overview: - Abdominal pain, Burnett positive - Cholestasis: AP: 255T bili 1.4 D bili 0.9 - A/P CT Scan showed cholelithiasis, gallbladder wall thickening, intrahepatic and extrahepatic bile duct dilation (choldocholithiasis + cholecystitis) - No fever, normal WBC (acute cholangitis less likely) - ERCP 06/22: purulent cholangitis + Choledocholithiasis - removal by biliary sphincterotomy and balloon extraction. - CT AP: Cholecystitis and cholelithiasis Plan: - Low threshold for antibiotics if signs of infection - Levofloxacin and Flagyl were started 06/21/2016 and stopped 06/23/2016 - Blood cultures were drawn - ERCP - DONE, cholelithiasis removed and purulent material drained - Vancomycin for MRSA in blood cultures Constipation 06/21/2016 06/27/2016 Overview: - Last BM 06/24/2016 - Decreased Flatulence - KUB at [place] [facility] was normal (report available only) Plan: - Repeat KUB: No SBO - Colace and Miralax - Avoid excess Opiods for pain management Back pain 10/21/2010 07/15/2021 LUNG CANCER 04/13/2005 06/27/2016 Overview: - Remote history (2003) - CT Chest 06/05: No convincing CT evidence for local tumor recurrence or metastatic disease in the chest. 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, s/p right upper lobectomy and chemotherapy Other and unspecified alcoho l dependence, unspecified drinking behavior 08/11/2018 Malignant neoplasm of bronchus and lung, unspeci fied site 12/08/2006 Overview: Lung cancer documented as of this encounter (statuses as of 09/01/2022) [facility]2017 History of Past illness Narrative* Problem Noted Date Diagnosed Date Resolved Date MRSA bacteremia 06/30/2016 03/22/2017 Bacteremia 06/23/2016 06/27/2016 Overview: - 2 Blood cultures on admission 06/21 positive for MRSA - B Cx on 06/22: G+ cocci in Clusters - ECHO done 06/23: fixed echodensity on the NCC (clip 28,29). Likely calcification but cannot rule out vegetation. Consider TOBY if high suspicion for endocarditis. Plan: - Vancomycin added to ABx regimen 06/22 - * - 6 weeks total treatment - COPAT started yesterday - F/U on ID recommendations - TOBY under general anesthesia - Not done as it will not foreign exchange dealer (same duration of ABx treatment) Cholelithiasis with acute ch olangitis with biliary obstruction 06/21/2016 06/27/2016 Overview: - Abdominal pain, Burnett positive - Cholestasis: AP: 255T bili 1.4 D bili 0.9 - A/P CT Scan showed cholelithiasis, gallbladder wall thickening, intrahepatic and extrahepatic bile duct dilation (choldocholithiasis + cholecystitis) - No fever, normal WBC (acute cholangitis less likely) - ERCP 06/22: purulent cholangitis + Choledocholithiasis - removal by biliary sphincterotomy and balloon extraction. - CT AP: Cholecystitis and cholelithiasis Plan: - Low threshold for antibiotics if signs of infection - Levofloxacin and Flagyl were started 06/21/2016 and stopped 06/23/2016 - Blood cultures were drawn - ERCP - DONE, cholelithiasis removed and purulent material drained - Vancomycin for MRSA in blood cultures Constipation 06/21/2016 06/27/2016 Overview: - Last BM 06/24/2016 - Decreased Flatulence - KUB at [place] [facility] was normal (report available only) Plan: - Repeat KUB: No SBO - Colace and Miralax - Avoid excess Opiods for pain management Back pain 10/21/2010 07/15/2021 LUNG CANCER 04/13/2005 06/27/2016 Overview: - Remote history (2003) - CT Chest 06/05: No convincing CT evidence for local tumor recurrence or metastatic disease in the chest. 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, s/p right upper lobectomy and chemotherapy Other and unspecified alcoho l dependence, unspecified drinking behavior 08/11/2018 Malignant neoplasm of bronch us and lung, unspecified site 12/08/2006 Overview: Lung cancer documented as of this encounter (statuses as of 11/06/2022) [facility] History of Past illness Narrative* Problem Noted Date Diagnosed Date Resolved Date MRSA bacteremia 06/30/2016 03/22/2017 Bacteremia 06/23/2016 06/27/2016 Overview: - 2 Blood cultures on admission 06/21 positive for MRSA - B Cx on 06/22: G+ cocci in Clusters - ECHO done 06/23: fixed echodensity on the NCC (clip 28,29). Likely calcification but cannot rule out vegetation. Consider TOBY if high suspicion for endocarditis. Plan: - Vancomycin added to ABx regimen 06/22 - * - 6 weeks total treatment - COPAT started yesterday - F/U on ID recommendations - TOBY under general anesthesia - Not done as it will not foreign exchange dealer (same duration of ABx treatment) Cholelithiasis with acute ch olangitis with biliary obstruction 06/21/2016 06/27/2016 Overview: - Abdominal pain, Burnett positive - Cholestasis: AP: 255T bili 1.4 D bili 0.9 - A/P CT Scan showed cholelithiasis, gallbladder wall thickening, intrahepatic and extrahepatic bile duct dilation (choldocholithiasis + cholecystitis) - No fever, normal WBC (acute cholangitis less likely) - ERCP 06/22: purulent cholangitis + Choledocholithiasis - removal by biliary sphincterotomy and balloon extraction. - CT AP: Cholecystitis and cholelithiasis Plan: - Low threshold for antibiotics if signs of infection - Levofloxacin and Flagyl were started 06/21/2016 and stopped 06/23/2016 - Blood cultures were drawn - ERCP - DONE, cholelithiasis removed and purulent material drained - Vancomycin for MRSA in blood cultures Constipation 06/21/2016 06/27/2016 Overview: - Last BM 06/24/2016 - Decreased Flatulence - KUB at [place] [facility] was normal (report available only) Plan: - Repeat KUB: No SBO - Colace and Miralax - Avoid excess Opiods for pain management Back pain 10/21/2010 07/15/2021 LUNG CANCER 04/13/2005 06/27/2016 Overview: - Remote history (2003) - CT Chest 06/05: No convincing CT evidence for local tumor recurrence or metastatic disease in the chest. 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, s/p right upper lobectomy and chemotherapy Other and unspecified alcoho l dependence, unspecified drinking behavior 08/11/2018 Malignant neoplasm of bronch us and lung, unspecified site 12/08/2006 Overview: Lung cancer documented as of this encounter (statuses as of 11/06/2022) [facility] History of Past illness Narrative* Problem Noted Date Diagnosed Date Resolved Date MRSA bacteremia 06/30/2016 03/22/2017 Bacteremia 06/23/2016 06/27/2016 Overview: - 2 Blood cultures on admission 06/21 positive for MRSA - B Cx on 06/22: G+ cocci in Clusters - ECHO done 06/23: fixed echodensity on the NCC (clip 28,29). Likely calcification but cannot rule out vegetation. Consider TOBY if high suspicion for endocarditis. Plan: - Vancomycin added to ABx regimen 06/22 - * - 6 weeks total treatment - COPAT started yesterday - F/U on ID recommendations - TOBY under general anesthesia - Not done as it will not foreign exchange dealer (same duration of ABx treatment) Cholelithiasis with acute ch olangitis with biliary obstruction 06/21/2016 06/27/2016 Overview: - Abdominal pain, Burnett positive - Cholestasis: AP: 255T bili 1.4 D bili 0.9 - A/P CT Scan showed cholelithiasis, gallbladder wall thickening, intrahepatic and extrahepatic bile duct dilation (choldocholithiasis + cholecystitis) - No fever, normal WBC (acute cholangitis less likely) - ERCP 06/22: purulent cholangitis + Choledocholithiasis - removal by biliary sphincterotomy and balloon extraction. - CT AP: Cholecystitis and cholelithiasis Plan: - Low threshold for antibiotics if signs of infection - Levofloxacin and Flagyl were started 06/21/2016 and stopped 06/23/2016 - Blood cultures were drawn - ERCP - DONE, cholelithiasis removed and purulent material drained - Vancomycin for MRSA in blood cultures Constipation 06/21/2016 06/27/2016 Overview: - Last BM 06/24/2016 - Decreased Flatulence - KUB at [place] [facility] was normal (report available only) Plan: - Repeat KUB: No SBO - Colace and Miralax - Avoid excess Opiods for pain management Back pain 10/21/2010 07/15/2021 LUNG CANCER 04/13/2005 06/27/2016 Overview: - Remote history (2003) - CT Chest 06/05: No convincing CT evidence for local tumor recurrence or metastatic disease in the chest. 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, s/p right upper lobectomy and chemotherapy Other and unspecified alcoho l dependence, unspecified drinking behavior 08/11/2018 Malignant neoplasm of bronch us and lung, unspecified site 12/08/2006 Overview: Lung cancer documented as of this encounter (statuses as of 12/29/2022) [facility] History of Past illness Narrative* Problem Noted Date Diagnosed Date Resolved Date MRSA bacteremia 06/30/2016 03/22/2017 Bacteremia 06/23/2016 06/27/2016 Overview: - 2 Blood cultures on admission 06/21 positive for MRSA - B Cx on 06/22: G+ cocci in Clusters - ECHO done 06/23: fixed echodensity on the NCC (clip 28,29). Likely calcification but cannot rule out vegetation. Consider TOBY if high suspicion for endocarditis. Plan: - Vancomycin added to ABx regimen 06/22 - * - 6 weeks total treatment - COPAT started yesterday - F/U on ID recommendations - TOBY under general anesthesia - Not done as it will not foreign exchange dealer (same duration of ABx treatment) Cholelithiasis with acute ch olangitis with biliary obstruction 06/21/2016 06/27/2016 Overview: - Abdominal pain, Burnett positive - Cholestasis: AP: 255T bili 1.4 D bili 0.9 - A/P CT Scan showed cholelithiasis, gallbladder wall thickening, intrahepatic and extrahepatic bile duct dilation (choldocholithiasis + cholecystitis) - No fever, normal WBC (acute cholangitis less likely) - ERCP 06/22: purulent cholangitis + Choledocholithiasis - removal by biliary sphincterotomy and balloon extraction. - CT AP: Cholecystitis and cholelithiasis Plan: - Low threshold for antibiotics if signs of infection - Levofloxacin and Flagyl were started 06/21/2016 and stopped 06/23/2016 - Blood cultures were drawn - ERCP - DONE, cholelithiasis removed and purulent material drained - Vancomycin for MRSA in blood cultures Constipation 06/21/2016 06/27/2016 Overview: - Last BM 06/24/2016 - Decreased Flatulence - KUB at [place] [facility] was normal (report available only) Plan: - Repeat KUB: No SBO - Colace and Miralax - Avoid excess Opiods for pain management Back pain 10/21/2010 07/15/2021 LUNG CANCER 04/13/2005 06/27/2016 Overview: - Remote history (2003) - CT Chest 06/05: No convincing CT evidence for local tumor recurrence or metastatic disease in the chest. 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, s/p right upper lobectomy and chemotherapy Other and unspecified alcoho l dependence, unspecified drinking behavior 08/11/2018 Malignant neoplasm of bronch us and lung, unspecified site 12/08/2006 Overview: Lung cancer documented as of this encounter (statuses as of 01/15/2023) [facility] History of Past illness Narrative* Problem Noted Date Diagnosed Date Resolved Date MRSA bacteremia 06/30/2016 03/22/2017 Bacteremia 06/23/2016 06/27/2016 Overview: - 2 Blood cultures on admission 06/21 positive for MRSA - B Cx on 06/22: G+ cocci in Clusters - ECHO done 06/23: fixed echodensity on the NCC (clip 28,29). Likely calcification but cannot rule out vegetation. Consider TOBY if high suspicion for endocarditis. Plan: - Vancomycin added to ABx regimen 06/22 - * - 6 weeks total treatment - COPAT started yesterday - F/U on ID recommendations - TOBY under general anesthesia - Not done as it will not foreign exchange dealer (same duration of ABx treatment) Cholelithiasis with acute ch olangitis with biliary obstruction 06/21/2016 06/27/2016 Overview: - Abdominal pain, Burnett positive - Cholestasis: AP: 255T bili 1.4 D bili 0.9 - A/P CT Scan showed cholelithiasis, gallbladder wall thickening, intrahepatic and extrahepatic bile duct dilation (choldocholithiasis + cholecystitis) - No fever, normal WBC (acute cholangitis less likely) - ERCP 06/22: purulent cholangitis + Choledocholithiasis - removal by biliary sphincterotomy and balloon extraction. - CT AP: Cholecystitis and cholelithiasis Plan: - Low threshold for antibiotics if signs of infection - Levofloxacin and Flagyl were started 06/21/2016 and stopped 06/23/2016 - Blood cultures were drawn - ERCP - DONE, cholelithiasis removed and purulent material drained - Vancomycin for MRSA in blood cultures Constipation 06/21/2016 06/27/2016 Overview: - Last BM 06/24/2016 - Decreased Flatulence - KUB at [place] [facility] was normal (report available only) Plan: - Repeat KUB: No SBO - Colace and Miralax - Avoid excess Opiods for pain management Back pain 10/21/2010 07/15/2021 LUNG CANCER 04/13/2005 06/27/2016 Overview: - Remote history (2003) - CT Chest 06/05: No convincing CT evidence for local tumor recurrence or metastatic disease in the chest. 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, s/p right upper lobectomy and chemotherapy Other and unspecified alcoho l dependence, unspecified drinking behavior 08/11/2018 Malignant neoplasm of bronch us and lung, unspecified site 12/08/2006 Overview: Lung cancer documented as of this encounter (statuses as of 01/30/2023) [facility] History of Past illness Narrative* Problem Noted Date Diagnosed Date Resolved Date MRSA bacteremia 06/30/2016 03/22/2017 Bacteremia 06/23/2016 06/27/2016 Overview: - 2 Blood cultures on admission 06/21 positive for MRSA - B Cx on 06/22: G+ cocci in Clusters - ECHO done 06/23: fixed echodensity on the NCC (clip 28,29). Likely calcification but cannot rule out vegetation. Consider TOBY if high suspicion for endocarditis. Plan: - Vancomycin added to ABx regimen 06/22 - * - 6 weeks total treatment - COPAT started yesterday - F/U on ID recommendations - TOBY under general anesthesia - Not done as it will not foreign exchange dealer (same duration of ABx treatment) Cholelithiasis with acute ch olangitis with biliary obstruction 06/21/2016 06/27/2016 Overview: - Abdominal pain, Burnett positive - Cholestasis: AP: 255T bili 1.4 D bili 0.9 - A/P CT Scan showed cholelithiasis, gallbladder wall thickening, intrahepatic and extrahepatic bile duct dilation (choldocholithiasis + cholecystitis) - No fever, normal WBC (acute cholangitis less likely) - ERCP 06/22: purulent cholangitis + Choledocholithiasis - removal by biliary sphincterotomy and balloon extraction. - CT AP: Cholecystitis and cholelithiasis Plan: - Low threshold for antibiotics if signs of infection - Levofloxacin and Flagyl were started 06/21/2016 and stopped 06/23/2016 - Blood cultures were drawn - ERCP - DONE, cholelithiasis removed and purulent material drained - Vancomycin for MRSA in blood cultures Constipation 06/21/2016 06/27/2016 Overview: - Last BM 06/24/2016 - Decreased Flatulence - KUB at [place] [facility] was normal (report available only) Plan: - Repeat KUB: No SBO - Colace and Miralax - Avoid excess Opiods for pain management Back pain 10/21/2010 07/15/2021 LUNG CANCER 04/13/2005 06/27/2016 Overview: - Remote history (2003) - CT Chest 06/05: No convincing CT evidence for local tumor recurrence or metastatic disease in the chest. 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, s/p right upper lobectomy and chemotherapy Other and unspecified alcoho l dependence, unspecified drinking behavior 08/11/2018 Malignant neoplasm of bronch us and lung, unspecified site 12/08/2006 Overview: Lung cancer documented as of this encounter (statuses as of 02/19/2023) [facility] History of Past illness Narrative* Problem Noted Date Diagnosed Date Resolved Date MRSA bacteremia 06/30/2016 03/22/2017 Bacteremia 06/23/2016 06/27/2016 Overview: - 2 Blood cultures on admission 06/21 positive for MRSA - B Cx on 06/22: G+ cocci in Clusters - ECHO done 06/23: fixed echodensity on the NCC (clip 28,29). Likely calcification but cannot rule out vegetation. Consider TOBY if high suspicion for endocarditis. Plan: - Vancomycin added to ABx regimen 06/22 - * - 6 weeks total treatment - COPAT started yesterday - F/U on ID recommendations - TOBY under general anesthesia - Not done as it will not foreign exchange dealer (same duration of ABx treatment) Cholelithiasis with acute ch olangitis with biliary obstruction 06/21/2016 06/27/2016 Overview: - Abdominal pain, Burnett positive - Cholestasis: AP: 255T bili 1.4 D bili 0.9 - A/P CT Scan showed cholelithiasis, gallbladder wall thickening, intrahepatic and extrahepatic bile duct dilation (choldocholithiasis + cholecystitis) - No fever, normal WBC (acute cholangitis less likely) - ERCP 06/22: purulent cholangitis + Choledocholithiasis - removal by biliary sphincterotomy and balloon extraction. - CT AP: Cholecystitis and cholelithiasis Plan: - Low threshold for antibiotics if signs of infection - Levofloxacin and Flagyl were started 06/21/2016 and stopped 06/23/2016 - Blood cultures were drawn - ERCP - DONE, cholelithiasis removed and purulent material drained - Vancomycin for MRSA in blood cultures Constipation 06/21/2016 06/27/2016 Overview: - Last BM 06/24/2016 - Decreased Flatulence - KUB at [place] [facility] was normal (report available only) Plan: - Repeat KUB: No SBO - Colace and Miralax - Avoid excess Opiods for pain management Back pain 10/21/2010 07/15/2021 LUNG CANCER 04/13/2005 06/27/2016 Overview: - Remote history (2003) - CT Chest 06/05: No convincing CT evidence for local tumor recurrence or metastatic disease in the chest. 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, s/p right upper lobectomy and chemotherapy Other and unspecified alcoho l dependence, unspecified drinking behavior 08/11/2018 Malignant neoplasm of bronch us and lung, unspecified site 12/08/2006 Overview: Lung cancer documented as of this encounter (statuses as of 03/17/2023) [facility] History of Past illness Narrative* Problem Noted Date Diagnosed Date Resolved Date MRSA bacteremia 06/30/2016 03/22/2017 Bacteremia 06/23/2016 06/27/2016 Overview: - 2 Blood cultures on admission 06/21 positive for MRSA - B Cx on 06/22: G+ cocci in Clusters - ECHO done 06/23: fixed echodensity on the NCC (clip 28,29). Likely calcification but cannot rule out vegetation. Consider TOBY if high suspicion for endocarditis. Plan: - Vancomycin added to ABx regimen 06/22 - * - 6 weeks total treatment - COPAT started yesterday - F/U on ID recommendations - TOBY under general anesthesia - Not done as it will not foreign exchange dealer (same duration of ABx treatment) Cholelithiasis with acute ch olangitis with biliary obstruction 06/21/2016 06/27/2016 Overview: - Abdominal pain, Burnett positive - Cholestasis: AP: 255T bili 1.4 D bili 0.9 - A/P CT Scan showed cholelithiasis, gallbladder wall thickening, intrahepatic and extrahepatic bile duct dilation (choldocholithiasis + cholecystitis) - No fever, normal WBC (acute cholangitis less likely) - ERCP 06/22: purulent cholangitis + Choledocholithiasis - removal by biliary sphincterotomy and balloon extraction. - CT AP: Cholecystitis and cholelithiasis Plan: - Low threshold for antibiotics if signs of infection - Levofloxacin and Flagyl were started 06/21/2016 and stopped 06/23/2016 - Blood cultures were drawn - ERCP - DONE, cholelithiasis removed and purulent material drained - Vancomycin for MRSA in blood cultures Constipation 06/21/2016 06/27/2016 Overview: - Last BM 06/24/2016 - Decreased Flatulence - KUB at [place] [facility] was normal (report available only) Plan: - Repeat KUB: No SBO - Colace and Miralax - Avoid excess Opiods for pain management Back pain 10/21/2010 07/15/2021 LUNG CANCER 04/13/2005 06/27/2016 Overview: - Remote history (2003) - CT Chest 06/05: No convincing CT evidence for local tumor recurrence or metastatic disease in the chest. 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, s/p right upper lobectomy and chemotherapy Other and unspecified alcoho l dependence, unspecified drinking behavior 08/11/2018 Malignant neoplasm of bronch us and lung, unspecified site 12/08/2006 Overview: Lung cancer documented as of this encounter (statuses as of 03/31/2023) [facility] History of Past illness Narrative* Problem Noted Date Diagnosed Date Resolved Date MRSA bacteremia 06/30/2016 03/22/2017 Bacteremia 06/23/2016 06/27/2016 Overview: - 2 Blood cultures on admission 06/21 positive for MRSA - B Cx on 06/22: G+ cocci in Clusters - ECHO done 06/23: fixed echodensity on the NCC (clip 28,29). Likely calcification but cannot rule out vegetation. Consider TOBY if high suspicion for endocarditis. Plan: - Vancomycin added to ABx regimen 06/22 - * - 6 weeks total treatment - COPAT started yesterday - F/U on ID recommendations - TOBY under general anesthesia - Not done as it will not foreign exchange dealer (same duration of ABx treatment) Cholelithiasis with acute ch olangitis with biliary obstruction 06/21/2016 06/27/2016 Overview: - Abdominal pain, Burnett positive - Cholestasis: AP: 255T bili 1.4 D bili 0.9 - A/P CT Scan showed cholelithiasis, gallbladder wall thickening, intrahepatic and extrahepatic bile duct dilation (choldocholithiasis + cholecystitis) - No fever, normal WBC (acute cholangitis less likely) - ERCP 06/22: purulent cholangitis + Choledocholithiasis - removal by biliary sphincterotomy and balloon extraction. - CT AP: Cholecystitis and cholelithiasis Plan: - Low threshold for antibiotics if signs of infection - Levofloxacin and Flagyl were started 06/21/2016 and stopped 06/23/2016 - Blood cultures were drawn - ERCP - DONE, cholelithiasis removed and purulent material drained - Vancomycin for MRSA in blood cultures Constipation 06/21/2016 06/27/2016 Overview: - Last BM 06/24/2016 - Decreased Flatulence - KUB at [place] [facility] was normal (report available only) Plan: - Repeat KUB: No SBO - Colace and Miralax - Avoid excess Opiods for pain management Back pain 10/21/2010 07/15/2021 LUNG CANCER 04/13/2005 06/27/2016 Overview: - Remote history (2003) - CT Chest 06/05: No convincing CT evidence for local tumor recurrence or metastatic disease in the chest. 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, s/p right upper lobectomy and chemotherapy Other and unspecified alcoho l dependence, unspecified drinking behavior 08/11/2018 Malignant neoplasm of bronch us and lung, unspecified site 12/08/2006 Overview: Lung cancer documented as of this encounter (statuses as of 06/11/2023) [facility] History of Past illness Narrative* Problem Noted Date Diagnosed Date Resolved Date MRSA bacteremia 06/30/2016 03/22/2017 Bacteremia 06/23/2016 06/27/2016 Overview: - 2 Blood cultures on admission 06/21 positive for MRSA - B Cx on 06/22: G+ cocci in Clusters - ECHO done 06/23: fixed echodensity on the NCC (clip 28,29). Likely calcification but cannot rule out vegetation. Consider TOBY if high suspicion for endocarditis. Plan: - Vancomycin added to ABx regimen 06/22 - * - 6 weeks total treatment - COPAT started yesterday - F/U on ID recommendations - TOBY under general anesthesia - Not done as it will not foreign exchange dealer (same duration of ABx treatment) Cholelithiasis with acute ch olangitis with biliary obstruction 06/21/2016 06/27/2016 Overview: - Abdominal pain, Burnett positive - Cholestasis: AP: 255T bili 1.4 D bili 0.9 - A/P CT Scan showed cholelithiasis, gallbladder wall thickening, intrahepatic and extrahepatic bile duct dilation (choldocholithiasis + cholecystitis) - No fever, normal WBC (acute cholangitis less likely) - ERCP 06/22: purulent cholangitis + Choledocholithiasis - removal by biliary sphincterotomy and balloon extraction. - CT AP: Cholecystitis and cholelithiasis Plan: - Low threshold for antibiotics if signs of infection - Levofloxacin and Flagyl were started 06/21/2016 and stopped 06/23/2016 - Blood cultures were drawn - ERCP - DONE, cholelithiasis removed and purulent material drained - Vancomycin for MRSA in blood cultures Constipation 06/21/2016 06/27/2016 Overview: - Last BM 06/24/2016 - Decreased Flatulence - KUB at [place] [facility] was normal (report available only) Plan: - Repeat KUB: No SBO - Colace and Miralax - Avoid excess Opiods for pain management Back pain 10/21/2010 07/15/2021 LUNG CANCER 04/13/2005 06/27/2016 Overview: - Remote history (2003) - CT Chest 06/05: No convincing CT evidence for local tumor recurrence or metastatic disease in the chest. 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, s/p right upper lobectomy and chemotherapy Other and unspecified alcoho l dependence, unspecified drinking behavior 08/11/2018 Malignant neoplasm of bronch us and lung, unspecified site 12/08/2006 Overview: Lung cancer documented as of this encounter (statuses as of 06/15/2023) [facility]03-[facility]2017 History of Past illness Narrative* Problem Noted Date Diagnosed Date Resolved Date MRSA bacteremia 06/30/2016 03/22/2017 Bacteremia 06/23/2016 06/27/2016 Overview: - 2 Blood cultures on admission 06/21 positive for MRSA - B Cx on 06/22: G+ cocci in Clusters - ECHO done 06/23: fixed echodensity on the NCC (clip 28,29). Likely calcification but cannot rule out vegetation. Consider TOBY if high suspicion for endocarditis. Plan: - Vancomycin added to ABx regimen 06/22 - * - 6 weeks total treatment - COPAT started yesterday - F/U on ID recommendations - TOBY under general anesthesia - Not done as it will not foreign exchange dealer (same duration of ABx treatment) Cholelithiasis with acute ch olangitis with biliary obstruction 06/21/2016 06/27/2016 Overview: - Abdominal pain, Burnett positive - Cholestasis: AP: 255T bili 1.4 D bili 0.9 - A/P CT Scan showed cholelithiasis, gallbladder wall thickening, intrahepatic and extrahepatic bile duct dilation (choldocholithiasis + cholecystitis) - No fever, normal WBC (acute cholangitis less likely) - ERCP 06/22: purulent cholangitis + Choledocholithiasis - removal by biliary sphincterotomy and balloon extraction. - CT AP: Cholecystitis and cholelithiasis Plan: - Low threshold for antibiotics if signs of infection - Levofloxacin and Flagyl were started 06/21/2016 and stopped 06/23/2016 - Blood cultures were drawn - ERCP - DONE, cholelithiasis removed and purulent material drained - Vancomycin for MRSA in blood cultures Constipation 06/21/2016 06/27/2016 Overview: - Last BM 06/24/2016 - Decreased Flatulence - KUB at [place] [facility] was normal (report available only) Plan: - Repeat KUB: No SBO - Colace and Miralax - Avoid excess Opiods for pain management Back pain 10/21/2010 07/15/2021 LUNG CANCER 04/13/2005 06/27/2016 Overview: - Remote history (2003) - CT Chest 06/05: No convincing CT evidence for local tumor recurrence or metastatic disease in the chest. 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, s/p right upper lobectomy and chemotherapy Other and unspecified alcoho l dependence, unspecified drinking behavior 08/11/2018 Malignant neoplasm of bronch us and lung, unspecified site 12/08/2006 Overview: Lung cancer documented as of this encounter (statuses as of 06/16/2023) [facility] History of Past illness Narrative* Problem Noted Date Diagnosed Date Resolved Date MRSA bacteremia 06/30/2016 03/22/2017 Bacteremia 06/23/2016 06/27/2016 Overview: - 2 Blood cultures on admission 06/21 positive for MRSA - B Cx on 06/22: G+ cocci in Clusters - ECHO done 06/23: fixed echodensity on the NCC (clip 28,29). Likely calcification but cannot rule out vegetation. Consider TOBY if high suspicion for endocarditis. Plan: - Vancomycin added to ABx regimen 06/22 - * - 6 weeks total treatment - COPAT started yesterday - F/U on ID recommendations - TOBY under general anesthesia - Not done as it will not foreign exchange dealer (same duration of ABx treatment) Cholelithiasis with acute ch olangitis with biliary obstruction 06/21/2016 06/27/2016 Overview: - Abdominal pain, Burnett positive - Cholestasis: AP: 255T bili 1.4 D bili 0.9 - A/P CT Scan showed cholelithiasis, gallbladder wall thickening, intrahepatic and extrahepatic bile duct dilation (choldocholithiasis + cholecystitis) - No fever, normal WBC (acute cholangitis less likely) - ERCP 06/22: purulent cholangitis + Choledocholithiasis - removal by biliary sphincterotomy and balloon extraction. - CT AP: Cholecystitis and cholelithiasis Plan: - Low threshold for antibiotics if signs of infection - Levofloxacin and Flagyl were started 06/21/2016 and stopped 06/23/2016 - Blood cultures were drawn - ERCP - DONE, cholelithiasis removed and purulent material drained - Vancomycin for MRSA in blood cultures Constipation 06/21/2016 06/27/2016 Overview: - Last BM 06/24/2016 - Decreased Flatulence - KUB at [place] [facility] was normal (report available only) Plan: - Repeat KUB: No SBO - Colace and Miralax - Avoid excess Opiods for pain management Back pain 10/21/2010 07/15/2021 LUNG CANCER 04/13/2005 06/27/2016 Overview: - Remote history (2003) - CT Chest 06/05: No convincing CT evidence for local tumor recurrence or metastatic disease in the chest. 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, s/p right upper lobectomy and chemotherapy Other and unspecified alcoho l dependence, unspecified drinking behavior 08/11/2018 Malignant neoplasm of bronch us and lung, unspecified site 12/08/2006 Overview: Lung cancer documented as of this encounter (statuses as of 06/17/2023) [facility] History of Past illness Narrative* Problem Noted Date Diagnosed Date Resolved Date MRSA bacteremia 06/30/2016 03/22/2017 Bacteremia 06/23/2016 06/27/2016 Overview: - 2 Blood cultures on admission 06/21 positive for MRSA - B Cx on 06/22: G+ cocci in Clusters - ECHO done 06/23: fixed echodensity on the NCC (clip 28,29). Likely calcification but cannot rule out vegetation. Consider TOBY if high suspicion for endocarditis. Plan: - Vancomycin added to ABx regimen 06/22 - * - 6 weeks total treatment - COPAT started yesterday - F/U on ID recommendations - TOBY under general anesthesia - Not done as it will not foreign exchange dealer (same duration of ABx treatment) Cholelithiasis with acute ch olangitis with biliary obstruction 06/21/2016 06/27/2016 Overview: - Abdominal pain, Burnett positive - Cholestasis: AP: 255T bili 1.4 D bili 0.9 - A/P CT Scan showed cholelithiasis, gallbladder wall thickening, intrahepatic and extrahepatic bile duct dilation (choldocholithiasis + cholecystitis) - No fever, normal WBC (acute cholangitis less likely) - ERCP 06/22: purulent cholangitis + Choledocholithiasis - removal by biliary sphincterotomy and balloon extraction. - CT AP: Cholecystitis and cholelithiasis Plan: - Low threshold for antibiotics if signs of infection - Levofloxacin and Flagyl were started 06/21/2016 and stopped 06/23/2016 - Blood cultures were drawn - ERCP - DONE, cholelithiasis removed and purulent material drained - Vancomycin for MRSA in blood cultures Constipation 06/21/2016 06/27/2016 Overview: - Last BM 06/24/2016 - Decreased Flatulence - KUB at [place] [facility] was normal (report available only) Plan: - Repeat KUB: No SBO - Colace and Miralax - Avoid excess Opiods for pain management Back pain 10/21/2010 07/15/2021 LUNG CANCER 04/13/2005 06/27/2016 Overview: - Remote history (2003) - CT Chest 06/05: No convincing CT evidence for local tumor recurrence or metastatic disease in the chest. 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, s/p right upper lobectomy and chemotherapy Other and unspecified alcoho l dependence, unspecified drinking behavior 08/11/2018 Malignant neoplasm of bronch us and lung, unspecified site 12/08/2006 Overview: Lung cancer documented as of this encounter (statuses as of 06/21/2023) [facility] History of Past illness Narrative* Problem Noted Date Diagnosed Date Resolved Date MRSA bacteremia 06/30/2016 03/22/2017 Bacteremia 06/23/2016 06/27/2016 Overview: - 2 Blood cultures on admission 06/21 positive for MRSA - B Cx on 06/22: G+ cocci in Clusters - ECHO done 06/23: fixed echodensity on the NCC (clip 28,29). Likely calcification but cannot rule out vegetation. Consider TOBY if high suspicion for endocarditis. Plan: - Vancomycin added to ABx regimen 06/22 - * - 6 weeks total treatment - COPAT started yesterday - F/U on ID recommendations - TOBY under general anesthesia - Not done as it will not foreign exchange dealer (same duration of ABx treatment) Cholelithiasis with acute ch olangitis with biliary obstruction 06/21/2016 06/27/2016 Overview: - Abdominal pain, Burnett positive - Cholestasis: AP: 255T bili 1.4 D bili 0.9 - A/P CT Scan showed cholelithiasis, gallbladder wall thickening, intrahepatic and extrahepatic bile duct dilation (choldocholithiasis + cholecystitis) - No fever, normal WBC (acute cholangitis less likely) - ERCP 06/22: purulent cholangitis + Choledocholithiasis - removal by biliary sphincterotomy and balloon extraction. - CT AP: Cholecystitis and cholelithiasis Plan: - Low threshold for antibiotics if signs of infection - Levofloxacin and Flagyl were started 06/21/2016 and stopped 06/23/2016 - Blood cultures were drawn - ERCP - DONE, cholelithiasis removed and purulent material drained - Vancomycin for MRSA in blood cultures Constipation 06/21/2016 06/27/2016 Overview: - Last BM 06/24/2016 - Decreased Flatulence - KUB at [place] [facility] was normal (report available only) Plan: - Repeat KUB: No SBO - Colace and Miralax - Avoid excess Opiods for pain management Back pain 10/21/2010 07/15/2021 LUNG CANCER 04/13/2005 06/27/2016 Overview: - Remote history (2003) - CT Chest 06/05: No convincing CT evidence for local tumor recurrence or metastatic disease in the chest. 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, s/p right upper lobectomy and chemotherapy Other and unspecified alcoho l dependence, unspecified drinking behavior 08/11/2018 Malignant neoplasm of bronch us and lung, unspecified site 12/08/2006 Overview: Lung cancer documented as of this encounter (statuses as of 06/28/2023) [facility] History of Past illness Narrative* Problem Noted Date Diagnosed Date Resolved Date MRSA bacteremia 06/30/2016 03/22/2017 Bacteremia 06/23/2016 06/27/2016 Overview: - 2 Blood cultures on admission 06/21 positive for MRSA - B Cx on 06/22: G+ cocci in Clusters - ECHO done 06/23: fixed echodensity on the NCC (clip 28,29). Likely calcification but cannot rule out vegetation. Consider TOBY if high suspicion for endocarditis. Plan: - Vancomycin added to ABx regimen 06/22 - * - 6 weeks total treatment - COPAT started yesterday - F/U on ID recommendations - TOBY under general anesthesia - Not done as it will not foreign exchange dealer (same duration of ABx treatment) Cholelithiasis with acute ch olangitis with biliary obstruction 06/21/2016 06/27/2016 Overview: - Abdominal pain, Burnett positive - Cholestasis: AP: 255T bili 1.4 D bili 0.9 - A/P CT Scan showed cholelithiasis, gallbladder wall thickening, intrahepatic and extrahepatic bile duct dilation (choldocholithiasis + cholecystitis) - No fever, normal WBC (acute cholangitis less likely) - ERCP 06/22: purulent cholangitis + Choledocholithiasis - removal by biliary sphincterotomy and balloon extraction. - CT AP: Cholecystitis and cholelithiasis Plan: - Low threshold for antibiotics if signs of infection - Levofloxacin and Flagyl were started 06/21/2016 and stopped 06/23/2016 - Blood cultures were drawn - ERCP - DONE, cholelithiasis removed and purulent material drained - Vancomycin for MRSA in blood cultures Constipation 06/21/2016 06/27/2016 Overview: - Last BM 06/24/2016 - Decreased Flatulence - KUB at [place] [facility] was normal (report available only) Plan: - Repeat KUB: No SBO - Colace and Miralax - Avoid excess Opiods for pain management Back pain 10/21/2010 07/15/2021 LUNG CANCER 04/13/2005 06/27/2016 Overview: - Remote history (2003) - CT Chest 06/05: No convincing CT evidence for local tumor recurrence or metastatic disease in the chest. 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, s/p right upper lobectomy and chemotherapy Other and unspecified alcoho l dependence, unspecified drinking behavior 08/11/2018 Malignant neoplasm of bronch us and lung, unspecified site 12/08/2006 Overview: Lung cancer documented as of this encounter (statuses as of 07/20/2023) [facility] History of Past illness Narrative* Problem Noted Date Diagnosed Date Resolved Date MRSA bacteremia 06/30/2016 03/22/2017 Bacteremia 06/23/2016 06/27/2016 Overview: - 2 Blood cultures on admission 2/26 positive for MRSA - B Cx on 06/22: G+ cocci in Clusters - ECHO done 06/23: fixed echodensity on the NCC (clip 28,29). Likely calcification but cannot rule out vegetation. Consider TOBY if high suspicion for endocarditis. Plan: - Vancomycin added to ABx regimen 06/22 - * - 6 weeks total treatment - COPAT started yesterday - F/U on ID recommendations - TOBY under general anesthesia - Not done as it will not foreign exchange dealer (same duration of ABx treatment) Cholelithiasis with acute ch olangitis with biliary obstruction 06/21/2016 06/27/2016 Overview: - Abdominal pain, Burnett positive - Cholestasis: AP: 255T bili 1.4 D bili 0.9 - A/P CT Scan showed cholelithiasis, gallbladder wall thickening, intrahepatic and extrahepatic bile duct dilation (choldocholithiasis + cholecystitis) - No fever, normal WBC (acute cholangitis less likely) - ERCP 06/22: purulent cholangitis + Choledocholithiasis - removal by biliary sphincterotomy and balloon extraction. - CT AP: Cholecystitis and cholelithiasis Plan: - Low threshold for antibiotics if signs of infection - Levofloxacin and Flagyl were started 06/21/2016 and stopped 06/23/2016 - Blood cultures were drawn - ERCP - DONE, cholelithiasis removed and purulent material drained - Vancomycin for MRSA in blood cultures Constipation 06/21/2016 06/27/2016 Overview: - Last BM 06/24/2016 - Decreased Flatulence - KUB at [place] [facility] was normal (report available only) Plan: - Repeat KUB: No SBO - Colace and Miralax - Avoid excess Opiods for pain management Back pain 10/21/2010 07/15/2021 LUNG CANCER 04/13/2005 06/27/2016 Overview: - Remote history (2003) - CT Chest 06/05: No convincing CT evidence for local tumor recurrence or metastatic disease in the chest. 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, s/p right upper lobectomy and chemotherapy Other and unspecified alcoho l dependence, unspecified drinking behavior 08/11/2018 Malignant neoplasm of bronch us and lung, unspecified site 12/08/2006 Overview: Lung cancer documented as of this encounter (statuses as of 07/26/2023) [facility] History of Past illness Narrative* Problem Noted Date Diagnosed Date Resolved Date MRSA bacteremia 06/30/2016 03/22/2017 Bacteremia 06/23/2016 06/27/2016 Overview: - 2 Blood cultures on admission 06/21 positive for MRSA - B Cx on 06/22: G+ cocci in Clusters - ECHO done 06/23: fixed echodensity on the NCC (clip 28,29). Likely calcification but cannot rule out vegetation. Consider TOBY if high suspicion for endocarditis. Plan: - Vancomycin added to ABx regimen 06/22 - * - 6 weeks total treatment - COPAT started yesterday - F/U on ID recommendations - TOBY under general anesthesia - Not done as it will not foreign exchange dealer (same duration of ABx treatment) Cholelithiasis with acute ch olangitis with biliary obstruction 06/21/2016 06/27/2016 Overview: - Abdominal pain, Burnett positive - Cholestasis: AP: 255T bili 1.4 D bili 0.9 - A/P CT Scan showed cholelithiasis, gallbladder wall thickening, intrahepatic and extrahepatic bile duct dilation (choldocholithiasis + cholecystitis) - No fever, normal WBC (acute cholangitis less likely) - ERCP 06/22: purulent cholangitis + Choledocholithiasis - removal by biliary sphincterotomy and balloon extraction. - CT AP: Cholecystitis and cholelithiasis Plan: - Low threshold for antibiotics if signs of infection - Levofloxacin and Flagyl were started 06/21/2016 and stopped 06/23/2016 - Blood cultures were drawn - ERCP - DONE, cholelithiasis removed and purulent material drained - Vancomycin for MRSA in blood cultures Constipation 06/21/2016 06/27/2016 Overview: - Last BM 06/24/2016 - Decreased Flatulence - KUB at [place] [facility] was normal (report available only) Plan: - Repeat KUB: No SBO - Colace and Miralax - Avoid excess Opiods for pain management Back pain 10/21/2010 07/15/2021 LUNG CANCER 04/13/2005 06/27/2016 Overview: - Remote history (2003) - CT Chest 06/05: No convincing CT evidence for local tumor recurrence or metastatic disease in the chest. 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, s/p right upper lobectomy and chemotherapy Other and unspecified alcoho l dependence, unspecified drinking behavior 08/11/2018 Malignant neoplasm of bronch us and lung, unspecified site 12/08/2006 Overview: Lung cancer documented as of this encounter (statuses as of 07/27/2023) [facility] History of Past illness Narrative* Problem Noted Date Diagnosed Date Resolved Date MRSA bacteremia 06/30/2016 03/22/2017 Bacteremia 06/23/2016 06/27/2016 Overview: - 2 Blood cultures on admission 06/21 positive for MRSA - B Cx on 06/22: G+ cocci in Clusters - ECHO done 06/23: fixed echodensity on the NCC (clip 28,29). Likely calcification but cannot rule out vegetation. Consider TOBY if high suspicion for endocarditis. Plan: - Vancomycin added to ABx regimen 06/22 - * - 6 weeks total treatment - COPAT started yesterday - F/U on ID recommendations - TOBY under general anesthesia - Not done as it will not foreign exchange dealer (same duration of ABx treatment) Cholelithiasis with acute ch olangitis with biliary obstruction 06/21/2016 06/27/2016 Overview: - Abdominal pain, Burnett positive - Cholestasis: AP: 255T bili 1.4 D bili 0.9 - A/P CT Scan showed cholelithiasis, gallbladder wall thickening, intrahepatic and extrahepatic bile duct dilation (choldocholithiasis + cholecystitis) - No fever, normal WBC (acute cholangitis less likely) - ERCP 06/22: purulent cholangitis + Choledocholithiasis - removal by biliary sphincterotomy and balloon extraction. - CT AP: Cholecystitis and cholelithiasis Plan: - Low threshold for antibiotics if signs of infection - Levofloxacin and Flagyl were started 06/21/2016 and stopped 06/23/2016 - Blood cultures were drawn - ERCP - DONE, cholelithiasis removed and purulent material drained - Vancomycin for MRSA in blood cultures Constipation 06/21/2016 06/27/2016 Overview: - Last BM 06/24/2016 - Decreased Flatulence - KUB at [place] [facility] was normal (report available only) Plan: - Repeat KUB: No SBO - Colace and Miralax - Avoid excess Opiods for pain management Back pain 10/21/2010 07/15/2021 LUNG CANCER 04/13/2005 06/27/2016 Overview: - Remote history (2003) - CT Chest 06/05: No convincing CT evidence for local tumor recurrence or metastatic disease in the chest. 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, s/p right upper lobectomy and chemotherapy Other and unspecified alcoho l dependence, unspecified drinking behavior 08/11/2018 Malignant neoplasm of bronch us and lung, unspecified site 12/08/2006 Overview: Lung cancer documented as of this encounter (statuses as of 08/06/2023) [facility] Diagnosis Essential hypertension, benign- Primary Elevated glucose Other abnormal glucose [facility] Diagnosis Chronic low back pain with sciatica, sciatica laterality unspecified, unspecified back pain laterality [facility] Diagnosis Chronic obstructive pulmonary disease, unspecified COPD type (HCC) [facility] Diagnosis Chronic obstructive pulmonary disease, unspecified COPD type (HCC)- Primary Chronic low back pain with sciatica, sciatica laterality unspecified, unspecified back pain laterality Essential hypertension, benign Uncomplicated asthma, unspecified asthma severity, unspecified whether persistent Generalized anxiety disorder [facility] Diagnosis Chronic low back pain with sciatica, sciatica laterality unspecified, unspecified back pain laterality [facility] Diagnosis Chronic obstructive pulmonary disease, unspecified COPD type (HCC)- Primary [facility] Diagnosis Chronic low back pain with sciatica, sciatica laterality unspecified, unspecified back pain laterality [facility] Diagnosis Chronic obstructive pulmonary disease, unspecified COPD type (HCC) documented in this encounter [facility] note* Diagnosis Stage 3 severe COPD by GOLD classification ([facility])- Primary Chronic respiratory failure with hypoxia (HCC) Chronic respiratory failure documented in this encounter [facility] note* Diagnosis Stage 3 severe COPD by GOLD classification ([facility])- Primary Chronic low back pain with sciatica, sciatica laterality unspecified, unspecified back pain laterality Chronic respiratory failure with hypoxia (HCC) Chronic respiratory failure Essential hypertension, benign Generalized anxiety disorder Tobacco use disorder documented in this encounter [facility] note* Diagnosis Chronic obstructive pulmonary disease, unspecified COPD type (HCC) Uncomplicated asthma, unspecified asthma severity, unspecified whether persistent documented in this encounter [facility] note* Diagnosis Esophageal reflux documented in this encounter [facility] note* Diagnosis Generalized osteoarthrosis, involving multiple sites documented in this encounter [facility] note* Diagnosis Generalized osteoarthrosis, involving multiple sites documented in this encounter [facility] note* Diagnosis Screening for colon cancer- Primary Special screening for malignant neoplasms, colon documented in this encounter [facility] note* Diagnosis Chronic low back pain with sciatica, sciatica laterality unspecified, unspecified back pain laterality- Primary Generalized osteoarthrosis, involving multiple sites Generalized anxiety disorder Depression, unspecified depression type Essential hypertension, benign Elevated glucose Other abnormal glucose Stage 3 severe COPD by GOLD classification ([facility]) Gastroesophageal reflux disease, unspecified whether esophagitis present Chronic obstructive pulmonary disease, unspecified COPD type (HCC) Uncomplicated asthma, unspecified asthma severity, unspecified whether persistent Tobacco use disorder Need for influenza vaccination Need for prophylactic vaccination and inoculation against influenza Encounter for medication monitoring Encounter for therapeutic drug monitoring documented in this encounter [facility] note* Diagnosis Thrush, oral Candidiasis of mouth documented in this encounter [facility] note* Diagnosis Encounter for screening mammogram for breast cancer documented in this encounter [facility] note* Diagnosis Onset Date Resolution Status COPD (chronic obstructive pulmonary disease) acute Hypoxia acute Respiratory insufficiency ac [place] Viral URI with cough acute COPD with acute exacerbation [facility] Work Phone: Evaluation note* Diagnosis Obstructive chronic bronchitis with exacerbation (HCC)- Primary Obstructive chronic bronchitis with exacerbation Stage 3 severe COPD by GOLD classification ([facility]) Cigarette smoker Tobacco use disorder Chronic respiratory failure with hypoxia (HCC) Chronic respiratory failure [facility] Diagnosis Stage 3 severe COPD by GOLD classification (HCC)- Primary Essential hypertension, benign Cigarette smoker Tobacco use disorder Generalized anxiety disorder Chronic low back pain with sciatica, sciatica laterality unspecified, unspecified back pain laterality [facility]* Diagnosis Chronic low back pain with sciatica, sciatica laterality unspecified, unspecified back pain laterality [facility] Diagnosis Chronic low back pain with sciatica, sciatica laterality unspecified, unspecified back pain laterality Tobacco use disorder [facility] Diagnosis Bronchitis Bronchitis, not specified as acute or chronic [facility]* Diagnosis Generalized osteoarthrosis, involving multiple sites [facility]* Diagnosis Chronic low back pain with sciatica, sciatica laterality unspecified, unspecified back pain laterality [facility]* Diagnosis Stage 3 severe COPD by GOLD classification ([facility])- Primary Generalized osteoarthrosis, involving multiple sites Chronic low back pain with sciatica, sciatica laterality unspecified, unspecified back pain laterality Essential hypertension, benign Tobacco use disorder Dysthymic disorder [facility] Diagnosis Chronic low back pain with sciatica, sciatica laterality unspecified, unspecified back pain laterality [facility]* Diagnosis Chronic low back pain with sciatica, sciatica laterality unspecified, unspecified back pain laterality Chronic obstructive pulmonary disease, unspecified COPD type (HCC) [facility]* Diagnosis Stage 3 severe COPD by GOLD classification (HCC) [facility]* Diagnosis Chronic low back pain with sciatica, sciatica laterality unspecified, unspecified back pain laterality [facility]* Diagnosis Oral infection- Primary Other and unspecified diseases of the oral soft tissues [facility] Diagnosis Chronic low back pain with sciatica, sciatica laterality unspecified, unspecified back pain laterality- Primary Essential hypertension, benign Generalized anxiety disorder Depression, unspecified depression type Gastroesophageal reflux disease without esophagitis Esophageal reflux [facility] Diagnosis Chronic low back pain with sciatica, sciatica laterality unspecified, unspecified back pain laterality Thrush, oral Candidiasis of mouth [facility]* Diagnosis Generalized osteoarthrosis, involving multiple sites [facility]* Diagnosis Encounter for screening mammogram for breast cancer documented in this encounter [facility] note* Diagnosis Chronic low back pain with sciatica, sciatica laterality unspecified, unspecified back pain laterality [facility]* Diagnosis Esophageal reflux [facility]* Diagnosis Chronic obstructive pulmonary disease, unspecified COPD type (HCC)- Primary Chronic low back pain with sciatica, sciatica laterality unspecified, unspecified back pain laterality Essential hypertension, benign Generalized anxiety disorder Depression, unspecified depression type Gastroesophageal reflux disease without esophagitis Esophageal reflux Thrush, oral Candidiasis of mouth Tobacco use disorder Screening for colon cancer Special screening for malignant neoplasms, colon [facility]* Diagnosis Chronic low back pain with sciatica, sciatica laterality unspecified, unspecified back pain laterality [facility] Author José Smith [facility] July 20, 2023 4:55am Note Date/Time July 20, 2023 4:2 4am [facility] Medical Records Department [address] [place] [id number] H&P Exam - Hospitalist 07/20/23 0406 MR#: [id number] Acct: [id number] Name: DENIA GONZALEZ Rep #:[id number] : 1955 68 From: José Abebe DO PCP: Dr. Yoseph Fall MD Status:AD M IN Location: [facility] CU995-8 HPI - General General Date of Admission: 07/20/23 Date of Service: 07/20/23 Chief Complaint: SOB, Wheezing and Cough with Green Sputum. HPI Narrative DENIA GONZALEZ, is a 68 F with a past medical history of essential hypertension, overweight; with BMI of 27.2 this admission, history of ongoing tobacco abuse; with subsequent steroid-dependent COPD, chronic hypoxic respiratory failure; on 2.5L NC, history of non-small cell lung cancer; s/p Right lobectomy, RLS, depression with anxiety, GERD and OA who presents to [facility] ER complaining of shortness of breath, wheezing and cough with green sputum. Ms. Gonzalez reports her symptoms began approximately 2 days prior to admission with a gradual onset of dyspnea on exertion that progressed to shortness of breath at rest. She had noticed rapidly developing upper respiratory infection symptoms and spite of her 50 mg of prednisone every other day, increased use of her nebulizers and a Z-Dahlia started by her primary care physician yesterday. Sheadmits to subjective fevers and worsening cough and wheezing that caused her to activate EMS. She denies associated chills, nausea, vomiting, leg pain, leg swelling, chest pain or hemoptysis. She admits her symptoms are similar to her previous COPD exacerbations. In the ER she was diagnosed with acute exacerbation of COPD with clinical evidence of gyosh-[id number] hypoxic respiratory insufficiency likely due to recent viral URI in the setting of ongoing tobacco abuse and she was then admitted to the general medical floor forongoing care for stay that is expected to be greater than 48 hours. [facility] Home Medications albuterol sulfate 90 mcg/actuation aerosol inhaler (Ventolin HFA) 1 - 2 puff inhalation Q4H PRN PRN Bronchodialation 04/18/13 [History Last Taken 09/23/14] cyclobenzaprine 10 mg tablet 10 mg PO Q12H pain 04/18/13 [History Last Taken 09/23/14 10 MG] fluticasone propionate 50 mcg/actuation nasal spray,suspension 1 spray intranasal DAILY nasal congestion 04/18/13 [History Last Taken 09/23/14] montelukast 10 mg tablet 10 mg PO DAILY allergies 04/18/13 [History Last Taken 09/23/14 10 MG] omeprazole 20 mg capsule,delayed release 20 mg PO DAILY heart burn 04/18/13 [History Last Taken 09/23/14 20 MG] tiotropium bromide 18 mcg capsule with inhalation device (Spiriva with HandiHaler) 1 puff inhalation DAILY wheezing 04/18/13 [History Last Taken 09/23/14] verapamil 240 mg tablet,extended release 360 mg PO DAILY heart 04/18/13 [History Last Taken 09/23/14 360 MG] Oxygen, Home [Home Oxygen] 2.5 lpm PRN PRN Dyspnea 10/22/13 [History Last Taken 09/23/14] sertraline 100 mg tablet 100 mg PO DAILY insomina 10/22/13 [History Last Taken 09/23/14] fluticasone 500 mcg-salmeterol 50 mcg/dose blistr powdr for inhalation (Advair Diskus) 1 puff inhalation BID shortness of breath ##1 10/26/13 [Rx Last Taken 09/23/14] Ropinirole Hcl 0.25 mg PO QHS restless legs 09/23/14 [History Last Taken Unknown] hydrocodone 7.5 mg-acetaminophen 325 mg tablet 7.5 - 325 mg PO Q6H PRN PRN Pain 09/23/14 [History Last Taken Unknown] prednisone 10 mg tablet 15 mg PO PRN PRN FLARE UPS 04/03/15 [History Last Taken Unknown] guaifenesin 600 mg tablet, extended release 12 hr (Mucus Relief ER) 600 mg PO BID congestion 05/13/16 [Rx Last Taken Unknown] ipratropium 0.5 mg-albuterol 3 mg (2.5 mg base)/3 mL nebulization soln 3 ml inhalation Q4HWA.RT wheezing ##30 05/13/16 [Rx Last Taken Unknown] lorazepam 0.5 mg tablet 0.5 mg PO QHS anxiety #7 tabs 05/05/20 [Rx Last Taken Unknown] Allergy/AdvReac Type Severity Reaction Status Date / Time No Known Allergies Allergy Verified 07/20/23 02:54 Social History Smoking Status: Former smoker ROS ROS Narrative Review of systems: General: Patient admits to subjective fever but denies chills. HENT: Denies headache, denies stuffy nose, denies sore throat, denies ear pain EYES: Denies changes in vision or discharge from eyes. Resp: Patient admits to dyspnea on exertion that progressed to shortness of breath at rest with wheezing and cough productive of sputum as per HPI. Cardiac: Denies chest pain or palpitations. GI: Denies abdominal pain, denies changes in bowel, denies nausea or vomiting. : Denies changes in urination Extremity: Denies swelling Musculoskeletal: Feels somewhat generally weak and unwell but denies arthralgiasor myalgias. Neuro: Patient denies headache, paresthesias or focal neurologic weakness. Heme: Denies any bleeding or bruising Skin: Denies rashes Psychiatric: No complaints voiced related to uncontrolled depression or anxiety. Endocrine: No polyuria, polydipsia or polyphagia. The rest of the 14 point ROS was negative except for positives in HPI. Vital Signs Vital Signs Vital Signs: 07/20/23 02:55 07/20/23 02:59 07/20/23 02:59 Temperature 99.8 F H 99.8 F H Temperature Source Oral Oral Pulse Rate 134 H 136 H Respiratory Rate 22 H 25 H Respiratory Effort Short of Breath Respiratory Pattern Blood Pressure 141/88 H 141/88 H Blood Pressure Mean 105 105 Pulse Ox 93 92 Oxygen Delivery Method Nasal Cannula Nasal Cannula Nasal Cannula Oxygen Flow Rate (L/min) 2.5 2.5 2.5 07/20/23 03:12 07/20/23 03:20 07/20/23 03:11 Temperature 98.4 F Temperature Source Temporal Pulse Rate 123 H 125 H Respiratory Rate 24 H 22 H Respiratory Effort Respiratory Pattern Tachypnea Blood Pressure 159/80 H Blood Pressure Mean 106 Pulse Ox 93 Oxygen Delivery Method Nasal Cannula Nasal Cannula Oxygen Flow Rate (L/min) 2.5 3 07/20/23 04:03 07/20/23 04:03 Temperature 98.2 F Temperature Source Temporal Pulse Rate 124 H 124 H Respiratory Rate 22 H 24 H Respiratory Effort Respiratory Pattern Blood Pressure 151/82 H 154/81 H Blood Pressure Mean 105 105 Pulse Ox 93 93 Oxygen Delivery Method Nasal Cannula Nasal Cannula Oxygen Flow Rate (L/min) 3 3 Weight Weight: 158 lb 11.725 oz Body Mass Index (BMI) 27.2 Physical Exam Const alert, oriented x3 and average body habitus Constitutional Narrative: Patient noted to have mildly labored respirations with expiratory wheezing. General Appearance: cooperative HEENT normocephalic, head/scalp atraumatic, hearing grossly normal bilaterally and moist oral mucous membranes Eyes PERRL and EOMs intact bilaterally Neck no lymphadenopathy and supple Resp Resp Narrative: Diminished breath sounds throughout with expiratory wheezing and prolonged expiratory phase. Auscultation: wheezes Cardio regular rate and regular rhythm Cardio Narrative: Tachycardia regular at approximately 130 bpm. GI normal to inspection, nondistended, normoactive bowel sounds, soft to palpation,non-tender and non-distended Extremity normal to inspection, full ROM and no clubbing, cyanosis or edema Skin Skin Narrative: Patient has no evidence of rash or abscess at this time. Neuro oriented x3, CN's II-XII intact bilaterally, moves all extremities and no focal motor deficits Sensorium / Orientation: awake, alert, oriented to person, oriented to place andoriented to time Speech: speech normal Motor Exam: strength 5/5 throughout Psych affect normal Results Medical Records Data Attestation: I reviewed the patient's medical records Lab / Micro Data Attestation: I reviewed the patient's lab results. 07/20/23 03:00 07/20/23 03:00 Labs: Laboratory Results - last 24 hr 07/20/23 03:00: WBC 8.9, RBC 5.34, Hgb 14.1, Hct 44.2, MCV 82.8, MCH 26.4 L, MCHC 31.9 L, RDW Std Deviation 41.0, RDW Coeff of Augustin 13.6, Plt Count 233, MPV 9.9, Immature Gran % (Auto) 0.300, Neut % (Auto) 67.5, Lymph % (Auto) 23.7, [place]% (Auto) 7.6, Eos % (Auto) 0.6, Baso % (Auto) 0.3, Absolute Neuts (auto) 6.0, Absolute Lymphs (auto) 2.11, Nucleated RBC % 0, Sodium 139, Potassium 3.8, Chloride 101, Carbon Dioxide 33.0 H, Anion Gap 5, BUN 13, Creatinine 0.70, EstimCreat Clear Calc 65.47, Est GFR (MDRD) Af Amer 108, Est GFR (MDRD) Non-Af 89, BUN/Creatinine Ratio 18.7, Glucose 129 H, Calcium 8.8 Micro: Microbiology 07/20/23 03:15 Mucosa - Nose SARS-CoV-2, Influenza & RSV (PCR) - Final Rhythm Strip Rhythm Strip: Sinus Tach Rate: 128 Ectopy: None Imaging Chest x-ray negative for infiltrate or other acute pathologic change positive for signs of emphysema and chronic scarring. Assessment & Plan Assessment/Plan (1) COPD with acute exacerbation: (2) Viral URI with cough: (3) Respiratory insufficiency: PLAN: Plan 1. Acute exacerbation of COPD in the setting of ongoing tobacco abuse - Admit to general medical floor. Continue IV Solu-Medrol and begin IV doxycycline plusscheduled and as needed nebulizers. Give Tylenol as needed for dflh-cj-gdvnregg(level 1- 5/10) pain or fever. Continue Percocet prn for severe (level 6-10/10) pain. Tobacco cessation will be strongly encouraged with nicotine patch offeredto control cravings. 2. Viral URI likely triggering #1 - Check viral respiratory panel and placed oncontact and droplet precautions until confirmed negative. 3. Ijqdk-ht-yycijrp hypoxic respiratory insufficiency arising from #1 & #2 - Wean supplemental oxygen as tolerated back to baseline levels. 4. Essential hypertension - Continue home regimen plus give as needed IV hydralazine for systolic blood pressure greater than 160 mmHg. 5. Overweight; with BMI of 27.2 this admission - Weight loss will be recommended. Check TSH. 6. History of non-small cell lung cancer; s/p Right lobectomy - Noted with no signs of recurrence on chest x-ray this admission. 7. RLS - Continue scheduled Requip nightly as previous. 8. Depression with anxiety - Resume current medication regimen. 9. GERD - Continue PPI. 10. OA - Stable. Give Tylenol as needed. 11. DVT prophylaxis - Give Lovenox 40 mg subcu daily. Total time: Approximately 55 minutes. Charges/Coding Visit Charges Inpatient E&M: 43257 Init Hosp L2 07/20/23 1907 <Electronically signed by José Cunningham DO> Cosigner Signature (if applicable): CC: Dr. José Cunningham DO; Dr. Yoseph Fall MD~ Signed [facility] Work Phone: Hospital Discharge instructions Additional Instructions Plenty of fluids and rest. Finish your current antibiotic. Prednisone daily 40 mg a day for 10 days. Then you can restart your chronic steroid use. Follow-up with your doctor to ensure you are improving or return if worse. Absolutely long-term you have got to try to quit smoking. Use your inhalers and nebulizer as needed for your shortness of breath and wheezing.[facility] Work Phone: Reason for referral (narrative)* Outpatient Procedure (Routine) - Pending Review Specialty Diagnoses / Procedures Referred By Jalyn peters Referred To Contact [facility] Diagnoses Chronic obstructive pulmonary disease, unspecified COPD type (HCC) Procedures OXIMETRY WITH AMBULATION NONINVASIVE EAR/PULSE OXIMETRY MULTIPLE Michelle Marie MD [address] [place] [address] Res[facility] [place] [address] [place] [address] Referral ID Status Reason Start Date Expiration Date Visits Requested Visits Authorized [id number] Pending Review Auto-Generat ed Referral 01/13/2022 02/12/2023 1 1 [facility] Diagnostic Procedure Only (Routine) - Pending Review Specialty Diagnoses / Procedures Referred By Contac t Referred To Contact [facility] Diagnoses Encounter for screening mammogram for breast cancer Procedures MICKIE SCREENING SCREENING MAMMOGRAPHY BI 2-VIEW BREAST INC CAD Yoseph Fall MD [address] [place] [address] [facility] [address] [place] [address] Referral ID Status Reason Start Date Expiration Date Visits Requested Visits Authorized [id number] Pending Review Auto-Generat ed Referral 06/16/2023 07/15/2024 1 1 [facility] Advance Directives Documents on File Type Date Recorded Patient Computer Field Technician Expl anation Advance Directive(s) 08/04/2016 2:40 PM Advance Directive(s) 08/04/2016 3:52 PM Advance Directive(s) 06/21/2016 6:38 PM Documents on File Type Date Recorded Patient Computer Field Technician Expl anation Advance Directive(s) 08/04/2016 3:52 PM Documents on File Type Date Recorded Patient Computer Field Technician Expl anation Advance Directive(s) 08/04/2016 3:52 PM Advance Directive Response Recorded Date/ Time Advance Directives No May 08, 2016 10:32am Living Will No July 20, 2023 5:03am Power of Home Health Manager No July 19 5:03am Chief Complaint and Reason for Visit Chief Complaint ACUTE EXACERBATION O F COPD WITH [id number] Reason for Visit COPD (chronic obstru ctive pulmonary disease) Hypoxia Respiratory insufficiency Viral URI with cough COPD with acute exacerbation Chief Complaint ACUTE EXACERBATION O F COPD WITH [id number] ACUTE EXACERBATION OF COPD WITH [id number] ACUTE EXACERBATION OF COPD WITH [id number] Reason for Visit COPD (chronic obstru ctive pulmonary disease) Hypoxia Respiratory insufficiency Viral URI with cough COPD with acute exacerbation Family History Relationship Condition Age at Onset Recorded Date/T ratna Unknown Family History?No pe rtinent history Unknown October 24, 2013 5:34pm Family History?No pe rtinent history Unknown May 29, 2016 9:58am Reason for Referral Specialty Diagnoses / Procedures Referred By Contac t Referred To Contact Diagnoses Generalized osteoarthrosis, involving multiple sites Iman Person APRN.[employer] [employer] [employer] [address] [place] [address] Referral ID Status Reason Start Date Expiration Date V isits Requested Visits Authorized [id number] Pending Review 1 1 Specialty Diagnoses / Procedures Referred By Contac t Referred To Contact Diagnoses Generalized osteoarthrosis, involving multiple sites Yoseph Fall MD [address] [place] [address] Referral ID Status Reason Start Date Expiration Date V isits Requested Visits Authorized [id number] Pending Review 1 1 Referral ID Status Reason Start Date Expiration Date V isits Requested Visits Authorized [id number] Pending Review 1 1 Summary Purpose Additional Source Comments Source Comments (unrecognize d section and content) In the event this informatio n is protected by the Federal Confidentiality of Alcohol and Drug Abuse Patient Records regulations: The Federal rules restrict any use of the information to criminally investigate or prosecute any alcohol or drug abuse patient.[facility] event this information is protected by the Federal Confidentiality of Alcohol and Drug Abuse Patient Records regulations: The Federal rules restrict any use of the information to criminally investigate or prosecute any alcohol or drug abuse patient.[facility] the event this information is protected by the Federal Confidentiality of Alcohol and Drug Abuse Patient Records regulations: The Federal rules restrict any use of the information to criminally investigate or prosecute any alcohol or drug abuse patient.[facility] the event this information is protected by the Federal Confidentiality of Alcohol and Drug Abuse Patient Records regulations: The Federal rules restrict any use of the information to criminally investigate or prosecute any alcohol or drug abuse patient.[facility] the event this information is protected by the Federal Confidentiality of Alcohol and Drug Abuse Patient Records regulations: The Federal rules restrict any use of the information to criminally investigate or prosecute any alcohol or drug abuse patient.[facility] the event this information is protected by the Federal Confidentiality of Alcohol and Drug Abuse Patient Records regulations: The Federal rules restrict any use of the information to criminally investigate or prosecute any alcohol or drug abuse patient.[facility] the event this information is protected by the Federal Confidentiality of Alcohol and Drug Abuse Patient Records regulations: The Federal rules restrict any use of the information to criminally investigate or prosecute any alcohol or drug abuse patient.[facility] the event this information is protected by the Federal Confidentiality of Alcohol and Drug Abuse Patient Records regulations: The Federal rules restrict any use of the information to criminally investigate or prosecute any alcohol or drug abuse patient.[facility] the event this information is protected by the Federal Confidentiality of Alcohol and Drug Abuse Patient Records regulations: The Federal rules restrict any use of the information to criminally investigate or prosecute any alcohol or drug abuse patient.[facility] the event this information is protected by the Federal Confidentiality of Alcohol and Drug Abuse Patient Records regulations: The Federal rules restrict any use of the information to criminally investigate or prosecute any alcohol or drug abuse patient.[facility] the event this information is protected by the Federal Confidentiality of Alcohol and Drug Abuse Patient Records regulations: The Federal rules restrict any use of the information to criminally investigate or prosecute any alcohol or drug abuse patient.[facility] the event this information is protected by the Federal Confidentiality of Alcohol and Drug Abuse Patient Records regulations: The Federal rules restrict any use of the information to criminally investigate or prosecute any alcohol or drug abuse patient.[facility] the event this information is protected by the Federal Confidentiality of Alcohol and Drug Abuse Patient Records regulations: The Federal rules restrict any use of the information to criminally investigate or prosecute any alcohol or drug abuse patient.[facility] the event this information is protected by the Federal Confidentiality of Alcohol and Drug Abuse Patient Records regulations: The Federal rules restrict any use of the information to criminally investigate or prosecute any alcohol or drug abuse patient.[facility] the event this information is protected by the Federal Confidentiality of Alcohol and Drug Abuse Patient Records regulations: The Federal rules restrict any use of the information to criminally investigate or prosecute any alcohol or drug abuse patient.[facility] the event this information is protected by the Federal Confidentiality of Alcohol and Drug Abuse Patient Records regulations: The Federal rules restrict any use of the information to criminally investigate or prosecute any alcohol or drug abuse patient.[facility] the event this information is protected by the Federal Confidentiality of Alcohol and Drug Abuse Patient Records regulations: The Federal rules restrict any use of the information to criminally investigate or prosecute any alcohol or drug abuse patient.[facility] the event this information is protected by the Federal Confidentiality of Alcohol and Drug Abuse Patient Records regulations: The Federal rules restrict any use of the information to criminally investigate or prosecute any alcohol or drug abuse patient.[facility] the event this information is protected by the Federal Confidentiality of Alcohol and Drug Abuse Patient Records regulations: The Federal rules restrict any use of the information to criminally investigate or prosecute any alcohol or drug abuse patient.[facility] HospitalIn the event this information is protected by the Federal Confidentiality of Alcohol and Drug Abuse Patient Records regulations: The Federal rules restrict any use of the information to criminally investigate or prosecute any alcohol or drug abuse patient.[facility] HospitalIn the event this information is protected by the Federal Confidentiality of Alcohol and Drug Abuse Patient Records regulations: The Federal rules restrict any use of the information to criminally investigate or prosecute any alcohol or drug abuse patient.[facility] HospitalIn the event this information is protected by the Federal Confidentiality of Alcohol and Drug Abuse Patient Records regulations: The Federal rules restrict any use of the information to criminally investigate or prosecute any alcohol or drug abuse patient.[facility] HospitalIn the event this information is protected by the Federal Confidentiality of Alcohol and Drug Abuse Patient Records regulations: The Federal rules restrict any use of the information to criminally investigate or prosecute any alcohol or drug abuse patient.[facility] HospitalIn the event this information is protected by the Federal Confidentiality of Alcohol and Drug Abuse Patient Records regulations: The Federal rules restrict any use of the information to criminally investigate or prosecute any alcohol or drug abuse patient.[facility] HospitalIn the event this information is protected by the Federal Confidentiality of Alcohol and Drug Abuse Patient Records regulations: The Federal rules restrict any use of the information to criminally investigate or prosecute any alcohol or drug abuse patient.[facility] HospitalIn the event this information is protected by the Federal Confidentiality of Alcohol and Drug Abuse Patient Records regulations: The Federal rules restrict any use of the information to criminally investigate or prosecute any alcohol or drug abuse patient.[facility] HospitalIn the event this information is protected by the Federal Confidentiality of Alcohol and Drug Abuse Patient Records regulations: The Federal rules restrict any use of the information to criminally investigate or prosecute any alcohol or drug abuse patient.[facility] HospitalIn the event this information is protected by the Federal Confidentiality of Alcohol and Drug Abuse Patient Records regulations: The Federal rules restrict any use of the information to criminally investigate or prosecute any alcohol or drug abuse patient.[facility] HospitalIn the event this information is protected by the Federal Confidentiality of Alcohol and Drug Abuse Patient Records regulations: The Federal rules restrict any use of the information to criminally investigate or prosecute any alcohol or drug abuse patient.[facility] HospitalIn the event this information is protected by the Federal Confidentiality of Alcohol and Drug Abuse Patient Records regulations: The Federal rules restrict any use of the information to criminally investigate or prosecute any alcohol or drug abuse patient.[facility] HospitalIn the event this information is protected by the Federal Confidentiality of Alcohol and Drug Abuse Patient Records regulations: The Federal rules restrict any use of the information to criminally investigate or prosecute any alcohol or drug abuse patient.[facility] HospitalIn the event this information is protected by the Federal Confidentiality of Alcohol and Drug Abuse Patient Records regulations: The Federal rules restrict any use of the information to criminally investigate or prosecute any alcohol or drug abuse patient.[facility] HospitalIn the event this information is protected by the Federal Confidentiality of Alcohol and Drug Abuse Patient Records regulations: The Federal rules restrict any use of the information to criminally investigate or prosecute any alcohol or drug abuse patient.[facility] HospitalIn the event this information is protected by the Federal Confidentiality of Alcohol and Drug Abuse Patient Records regulations: The Federal rules restrict any use of the information to criminally investigate or prosecute any alcohol or drug abuse patient.[facility] HospitalIn the event this information is protected by the Federal Confidentiality of Alcohol and Drug Abuse Patient Records regulations: The Federal rules restrict any use of the information to criminally investigate or prosecute any alcohol or drug abuse patient.[facility] HospitalIn the event this information is protected by the Federal Confidentiality of Alcohol and Drug Abuse Patient Records regulations: The Federal rules restrict any use of the information to criminally investigate or prosecute any alcohol or drug abuse patient.[facility] HospitalIn the event this information is protected by the Federal Confidentiality of Alcohol and Drug Abuse Patient Records regulations: The Federal rules restrict any use of the information to criminally investigate or prosecute any alcohol or drug abuse patient.[facility] HospitalIn the event this information is protected by the Federal Confidentiality of Alcohol and Drug Abuse Patient Records regulations: The Federal rules restrict any use of the information to criminally investigate or prosecute any alcohol or drug abuse patient.[facility] HospitalIn the event this information is protected by the Federal Confidentiality of Alcohol and Drug Abuse Patient Records regulations: The Federal rules restrict any use of the information to criminally investigate or prosecute any alcohol or drug abuse patient.[facility] HospitalIn the event this information is protected by the Federal Confidentiality of Alcohol and Drug Abuse Patient Records regulations: The Federal rules restrict any use of the information to criminally investigate or prosecute any alcohol or drug abuse patient.[facility] HospitalIn the event this information is protected by the Federal Confidentiality of Alcohol and Drug Abuse Patient Records regulations: The Federal rules restrict any use of the information to criminally investigate or prosecute any alcohol or drug abuse patient.[facility] HospitalIn the event this information is protected by the Federal Confidentiality of Alcohol and Drug Abuse Patient Records regulations: The Federal rules restrict any use of the information to criminally investigate or prosecute any alcohol or drug abuse patient.[facility] HospitalIn the event this information is protected by the Federal Confidentiality of Alcohol and Drug Abuse Patient Records regulations: The Federal rules restrict any use of the information to criminally investigate or prosecute any alcohol or drug abuse patient.[facility] HospitalIn the event this information is protected by the Federal Confidentiality of Alcohol and Drug Abuse Patient Records regulations: The Federal rules restrict any use of the information to criminally investigate or prosecute any alcohol or drug abuse patient.[facility] HospitalIn the event this information is protected by the Federal Confidentiality of Alcohol and Drug Abuse Patient Records regulations: The Federal rules restrict any use of the information to criminally investigate or prosecute any alcohol or drug abuse patient.[facility] HospitalIn the event this information is protected by the Federal Confidentiality of Alcohol and Drug Abuse Patient Records regulations: The Federal rules restrict any use of the information to criminally investigate or prosecute any alcohol or drug abuse patient.[facility] HospitalIn the event this information is protected by the Federal Confidentiality of Alcohol and Drug Abuse Patient Records regulations: The Federal rules restrict any use of the information to criminally investigate or prosecute any alcohol or drug abuse patient.[facility] HospitalIn the event this information is protected by the Federal Confidentiality of Alcohol and Drug Abuse Patient Records regulations: The Federal rules restrict any use of the information to criminally investigate or prosecute any alcohol or drug abuse patient.[facility] HospitalIn the event this information is protected by the Federal Confidentiality of Alcohol and Drug Abuse Patient Records regulations: The Federal rules restrict any use of the information to criminally investigate or prosecute any alcohol or drug abuse patient.[facility] HospitalIn the event this information is protected by the Federal Confidentiality of Alcohol and Drug Abuse Patient Records regulations: The Federal rules restrict any use of the information to criminally investigate or prosecute any alcohol or drug abuse patient.[facility] HospitalIn the event this information is protected by the Federal Confidentiality of Alcohol and Drug Abuse Patient Records regulations: The Federal rules restrict any use of the information to criminally investigate or prosecute any alcohol or drug abuse patient.[facility] HospitalIn the event this information is protected by the Federal Confidentiality of Alcohol and Drug Abuse Patient Records regulations: The Federal rules restrict any use of the information to criminally investigate or prosecute any alcohol or drug abuse patient.[facility] HospitalIn the event this information is protected by the Federal Confidentiality of Alcohol and Drug Abuse Patient Records regulations: The Federal rules restrict any use of the information to criminally investigate or prosecute any alcohol or drug abuse patient.[facility] HospitalIn the event this information is protected by the Federal Confidentiality of Alcohol and Drug Abuse Patient Records regulations: The Federal rules restrict any use of the information to criminally investigate or prosecute any alcohol or drug abuse patient.[facility] HospitalIn the event this information is protected by the Federal Confidentiality of Alcohol and Drug Abuse Patient Records regulations: The Federal rules restrict any use of the information to criminally investigate or prosecute any alcohol or drug abuse patient.[facility] HospitalIn the event this information is protected by the Federal Confidentiality of Alcohol and Drug Abuse Patient Records regulations: The Federal rules restrict any use of the information to criminally investigate or prosecute any alcohol or drug abuse patient.[facility] HospitalIn the event this information is protected by the Federal Confidentiality of Alcohol and Drug Abuse Patient Records regulations: The Federal rules restrict any use of the information to criminally investigate or prosecute any alcohol or drug abuse patient.[facility] HospitalIn the event this information is protected by the Federal Confidentiality of Alcohol and Drug Abuse Patient Records regulations: The Federal rules restrict any use of the information to criminally investigate or prosecute any alcohol or drug abuse patient.[facility] HospitalIn the event this information is protected by the Federal Confidentiality of Alcohol and Drug Abuse Patient Records regulations: The Federal rules restrict any use of the information to criminally investigate or prosecute any alcohol or drug abuse patient.[facility] HospitalIn the event this information is protected by the Federal Confidentiality of Alcohol and Drug Abuse Patient Records regulations: The Federal rules restrict any use of the information to criminally investigate or prosecute any alcohol or drug abuse patient.[facility] HospitalIn the event this information is protected by the Federal Confidentiality of Alcohol and Drug Abuse Patient Records regulations: The Federal rules restrict any use of the information to criminally investigate or prosecute any alcohol or drug abuse patient.[facility] HospitalIn the event this information is protected by the Federal Confidentiality of Alcohol and Drug Abuse Patient Records regulations: The Federal rules restrict any use of the information to criminally investigate or prosecute any alcohol or drug abuse patient.[facility] HospitalIn the event this information is protected by the Federal Confidentiality of Alcohol and Drug Abuse Patient Records regulations: The Federal rules restrict any use of the information to criminally investigate or prosecute any alcohol or drug abuse patient.[facility] HospitalIn the event this information is protected by the Federal Confidentiality of Alcohol and Drug Abuse Patient Records regulations: The Federal rules restrict any use of the information to criminally investigate or prosecute any alcohol or drug abuse patient.[facility] HospitalIn the event this information is protected by the Federal Confidentiality of Alcohol and Drug Abuse Patient Records regulations: The Federal rules restrict any use of the information to criminally investigate or prosecute any alcohol or drug abuse patient.[facility] HospitalIn the event this information is protected by the Federal Confidentiality of Alcohol and Drug Abuse Patient Records regulations: The Federal rules restrict any use of the information to criminally investigate or prosecute any alcohol or drug abuse patient.[facility] HospitalIn the event this information is protected by the Federal Confidentiality of Alcohol and Drug Abuse Patient Records regulations: The Federal rules restrict any use of the information to criminally investigate or prosecute any alcohol or drug abuse patient.[facility] HospitalIn the event this information is protected by the Federal Confidentiality of Alcohol and Drug Abuse Patient Records regulations: The Federal rules restrict any use of the information to criminally investigate or prosecute any alcohol or drug abuse patient.[facility] HospitalIn the event this information is protected by the Federal Confidentiality of Alcohol and Drug Abuse Patient Records regulations: The Federal rules restrict any use of the information to criminally investigate or prosecute any alcohol or drug abuse patient.[facility] HospitalIn the event this information is protected by the Federal Confidentiality of Alcohol and Drug Abuse Patient Records regulations: The Federal rules restrict any use of the information to criminally investigate or prosecute any alcohol or drug abuse patient.[facility] HospitalIn the event this information is protected by the Federal Confidentiality of Alcohol and Drug Abuse Patient Records regulations: The Federal rules restrict any use of the information to criminally investigate or prosecute any alcohol or drug abuse patient.[facility] HospitalIn the event this information is protected by the Federal Confidentiality of Alcohol and Drug Abuse Patient Records regulations: The Federal rules restrict any use of the information to criminally investigate or prosecute any alcohol or drug abuse patient.[facility] Care Teams (unrecognized sec tion and content) Divemaster Relationship Specialty Start Date End Date Yoseph Fall MD [address] [place] [id number] PCP - General 04/17/09 Divemaster Relationship Specialty Start Date End Date Yoseph Fall MD [address] [place] [address] PCP - General 04/17/09 Divemaster Relationship Specialty Start Date End Date Yoseph Fall MD [address] [place] [address] PCP - General 04/17/09 Divemaster Relationship Specialty Start Date End Date Yoseph Fall MD [facility] [place] [address] PCP - General 04/17/09 Divemaster Relationship Specialty Start Date End Date Yoseph Fall MD [address] [place] [address] PCP - General 04/17/09 Divemaster Relationship Specialty Start Date End Date Yoseph Fall MD [address] [place] [address] PCP - General 04/17/09 Divemaster Relationship Specialty Start Date End Date Yoseph Fall MD [address] [facility] [place] [address] PCP - General 04/17/09 Divemaster Relationship Specialty [place] [address] [place] [address], [place] [address] PCP - General 04/17/09 Divemaster Relationship Specialty Start Date End Date Yoseph Fall MD [address] [place] [address], [place] [address] PCP - General 04/17/09 Divemaster Relationship Specialty Start Date End Date Yoseph Fall MD [address] [place] [address], [place] [address] PCP - General 04/17/09 Divemaster Relationship Specialty Start Date End Date Yoseph Fall MD [address] [place] [address], [place] [address] PCP - General 04/17/09 Divemaster Relationship Specialty Start Date End Date Yoseph Fall MD [address] [place] [address], [place] [address] PCP - General 04/17/09 Divemaster Relationship Specialty Start Date End Date Yoseph Fall MD [facility] [facility] [place] [address] PCP - General 04/17/09 Divemaster Relationship Specialty Start Date End Date Yoseph Fall MD [address] [place] [address], [place] [address] PCP - General 04/17/09 Divemaster Relationship Specialty Start Date End Date Yoseph Fall MD [address] [place] [address], [place] [address] PCP - General 04/17/09 Divemaster Relationship Specialty Start Date End Date Yoseph Fall MD [address] [place] [address] PCP - General 04/17/09 Divemaster Relationship Specialty Start Date End Date Yoseph Fall MD [address] [place] [address] PCP - General 04/17/09 Divemaster Relationship Specialty Start Date End Date Yoseph Fall MD [address] [place] [address] PCP - General 04/17/09 Divemaster Relationship Specialty Start Date End Date Yoseph Fall MD [address] [place] [address] PCP - General 04/17/09 Divemaster Relationship Specialty Start Date End Date Yoseph Fall MD [address] [place] [address] PCP - General 04/17/09 Divemaster Relationship Specialty Start Date End Date Yoseph Fall MD [address] [place] [address] PCP - General 04/17/09 Divemaster Relationship Specialty Start Date End Date Yoseph Fall MD [address] [place] [address] PCP - General 04/17/09 Divemaster Relationship Specialty Start Date End Date Yoseph Fall MD [address] [place] [address] PCP - General 04/17/09 Divemaster Relationship Specialty Start Date End Date Yoseph Fall MD [address] [place] [address] PCP - General 04/17/09 Divemaster Relationship Specialty Start Date End Date Yoseph Fall MD [address] [place] [address] PCP - General 04/17/09 Divemaster Relationship Specialty Start Date End Date Yoseph Flal MD [address] [place] [address] PCP - General 04/17/09 Team Status: Active Member Role Status Dates Dr. Yoseph Fall MD Primary Care Provider Active Team Status: Active Member Role Status Dates Dr. Yoseph Fall MD Primary Care Provider Active Dr. Dallas Mena MD Emergency Provider Active Dr. José Cunningham DO Admit Provider, Attending Pr ovider Active Divemaster Relationship Specialty Start Date End Date Yoseph Fall MD [address] [place], [place] [address]341 PCP - General 04/17/09 Team Status: Active Member Role Status Dates Dr. Yoseph Fall MD Primary Care Provider Active Dr. Dallas Mena MD Emergency Provider Active Dr. José Cunningham DO Admit Provider, Other Provid er Active Dr. Jan Bolanos MD Attending Provider, Other Provider Active Team Status: Inactive Member Role Status Dates Dr. Yoseph Fall MD Primary Care Provider Active Dr. Dallas Mena MD Emergency Provider Active Dr. José Cunningham DO Admit Provider, Other Provid er Active Dr. Jan Bolanos MD Attending Provider Active Divemaster Relationship Specialty Start Date End Date Yoseph Fall MD [address] [place], [place] [id number] PCP - General 04/17/09 Divemaster Relationship Specialty Start Date End Date Yoseph Fall MD [address] [place], [place] [address] PCP - General 04/17/09 Divemaster Relationship Specialty Start Date End Date Yoesph Fall MD [address] [place] [address] PCP - General 04/17/09 Divemaster Relationship Specialty Start Date End Date Yoseph Fall MD [address] [place] [address] PCP - General 04/17/09 Divemaster Relationship Specialty Start Date End Date Yoseph Fall MD [address] [place] [address] PCP - General 04/17/09 Divemaster Relationship Specialty Start Date End Date Yoseph Fall MD [address] [place] [address] PCP - General 04/17/09 Divemaster Relationship Specialty Start Date End Date Yoseph Fall MD [address] [place] [address] PCP - General 04/17/09 Iman Person APRN.[employer] [address] [place] [address] [facility] 04/02/24 Divemaster Relationship Specialty Start Date End Date Yoseph Fall MD [address] [place] [address] PCP - General 04/17/09 Iman Person APRN.[employer] [address] [place] [address] [facility] 04/02/24 Divemaster Relationship Specialty Start Date End Date Yoseph Fall MD [address] [place] [address] PCP - General 04/17/09 Iman Person APRN.[employer] [address] [place] [address] [facility] 04/02/24 Nelson Robert APRN.[employer] [address] [place] [address] [facility] Divemaster Relationship Specialty Start Date End Date Yoseph Fall MD [address] [place] [address] PCP - General 04/17/09 Iman Person MEND WORKER.[employer] [address] [place] [address] [facility] 04/02/24 Nelson Robert MEND WORKER.[employer] [address] [place] [address] [facility] 04/11/24 Divemaster Relationship Specialty Start Date End Date Yoseph Fall MD [address] [place] [address] PCP - General 04/17/09 Iman Person APRN.[employer] [address] [facility] [place] [address] [facility] 04/02/24 Nelson Robert APRN.[employer] [address] [place] [address] [facility] 04/11/24 Divemaster Relationship Specialty Start Date End Date Yoseph Fall MD [address] [place] [address] PCP - General 04/17/09 Iman Person APRN.[employer] [address] [place] [address] [facility] 04/02/24 Nelson Robert APRN.[employer] [address] [place] [address] [facility] 04/11/24 Divemaster Relationship Specialty Start Date End Date Yoseph Fall MD [address] [place] [address] PCP - General 04/17/09 Iman Person APRN.[employer] [address] [place] [address] [facility] 04/02/24 Nelson Robert APRN.[employer] [address] [place] [address] [facility] 04/11/24 Divemaster Relationship Specialty Start Date End Date Yoseph Fall MD [address] [facility] [place] [address] PCP - General 04/17/09 Iman Person APRN.[employer] [address] [facility] [place] [address] [facility] 04/02/24 Nelson Robert APRN.[employer] [address] [facility] [place] [address] [facility] 04/11/24 Divemaster Relationship Specialty Start Date End Date Yoseph Fall MD [address] [facility] [place] [address] PCP - General 04/17/09 Iman Person APRN.[employer] [address] [facility] [place] [address] [facility] 04/02/24 Nelson Robert APRN.[employer] [address] [facility] [place] [address] [facility] 04/11/24 Divemaster Relationship Specialty Start Date End Date Yoseph Fall MD [address] [facility] [place] [address] PCP - General 04/17/09 Iman Person APRN.[employer] [address] [facility] [place] [address] [facility] 04/02/24 Nelson Robert APRN.[employer] [address] [facility] [place] [address] [facility] 04/11/24 Divemaster Relationship Specialty Start Date End Date Yoseph Fall MD [address] [place] [address] PCP - General 04/17/09 Iman Person APRN.[employer] [address] [place] [address] [facility] 04/02/24 Nelson Robert APRN.[employer] [address] [place] [address] [facility] 04/11/24 Divemaster Relationship Specialty Start Date End Date Yoseph Fall MD [address] [place] [address] PCP - General 04/17/09 Iman Person APRN.[employer] [address] [place] [address] [facility] 04/02/24 Nelson Robert APRN.[employer] [address] [place] [address] [facility] 04/11/24 Divemaster Relationship Specialty Start Date End Date Yoseph Fall MD [address] [place] [address] PCP - General 04/17/09 Iman Person APRN.[employer] [address] [place] [address] [facility] 04/02/24 Nelson Robert APRN.[employer] [address] [place], [place] [address] [facility] 04/11/24 Divemaster Relationship Specialty Start Date End Date Yoseph Fall MD [address] [place], [place] [address]75[address] PCP - General 04/17/09 Iman Person APRN.[employer] [address] [place] [address] [facility] 04/02/24 Nelson Robert [email or web address].[email or web address] [address] [place], [place] [address] [facility] 04/11/24 Reason for Visit (unrecogniz ed section and content) Reason Onset Date Comments Refill Request 08/18/2021 Reason Onset Date Comments Refill Request 08/27/2021 Reason Onset Date Comments Refill Request 09/15/2021 Reason Onset Date Comments Refill Request 09/30/2021 Reason Comments F/U 3 Month Reason Onset Date Comments Refill Request 11/17/2021 Reason Onset Date Comments Refill Request 12/18/2021 Reason Comments Orders Reason Comments Refill Request Reason Comments Spirometry Specialty Diagnoses / Procedures Referred By Contac t Referred To Contact [facility] Diagnoses Chronic obstructive pulmonary disease, unspecified COPD type (HCC) Procedures OXIMETRY WITH AMBULATION NONINVASIVE EAR/PULSE OXIMETRY Michelle Mendoza MD [address] [place] [address] [facility] [address] [place] [address] Referral ID Status Reason Start Date Expiration Date V isits Requested Visits Authorized [id number] Closed Auto-Generate d Referral 01/13/2022 02/12/2023 1 1 Reason Onset Date Comments Refill Request 04/21/2022 Reason Comments Follow Up Medication follow up Reason Onset Date Comments Refill Request 05/05/2022 Reason Onset Date Comments Refill Request 05/15/2022 Reason Onset Date Comments Refill Request 06/08/2022 Reason Onset Date Comments Refill Request 06/29/2022 Reason Comments Forms Incontinence supply form Reason Comments Patient Request Reason Onset Date Comments Refill Request 11/06/2022 Reason Onset Date Comments Refill Request 12/29/2022 Reason Onset Date Comments Refill Request 01/15/2023 Reason Onset Date Comments F/U 3 Month Immunizations 02/19/2023 Flu vaccination Reason Onset Date Comments Refill Request 03/17/2023 Reason Onset Date Comments Refill Request 06/11/2023 Reason Comments Mouth/Lip Problem Reason Comments Insurance Authorization Reason Comments Forms Accurate Medical Sup ply re: incontinence supplies Reason Comments Med Change Request Reason Comments Medication Request Cough Reason Onset Date Comments Transition Of Care 07/26/2023 Reason Comments Transition Of Care Reason Onset Date Comments Refill Request 07/27/2023 Reason Onset Date Comments Refill Request 09/15/2023 Reason Comments Medication Problem Reason Onset Date Comments Refill Request 10/18/2023 Reason Comments Medication Request Requesting antibioti c Reason Onset Date Comments Refill Request 11/05/2023 Reason Onset Date Comments Refill Request 11/16/2023 Reason Comments F/U 3 Month Reason Onset Date Comments Refill Request 12/24/2023 Reason Onset Date Comments Refill Request 01/18/2024 Reason Comments Patient Question Reason Onset Date Comments Refill Request 02/14/2024 Reason Onset Date Comments Refill Request 03/03/2024 Reason Onset Date Comments Refill Request 03/20/2024 Reason Onset Date Comments Refill Request 04/10/2024 Reason Onset Date Comments Refill Request 05/16/2024 Reason Onset Date Comments Refill Request 06/01/2024 Medication Problem 06/01/2024 Singulair Reason Comments Forms Accurate Medical Sup ply Reason Onset Date Comments Refill Request 06/19/2024 Reason Onset Date Comments Refill Request 06/22/2024 Reason Comments Chart Notes Reason Comments Patient Update Medication Request Reason Onset Date Comments Refill Request 08/15/2024 Reason Onset Date Comments Refill Request 08/29/2024 Goals (unrecognized section and content) Goals may be documented in a n alternate section INFORMATION SOURCE (unrecogn ized section and content) DATE CREATED AUTHOR 11/11/2023 [facility] DATE CREATED AUTHOR AUTHOR'S SHANIQUEIZ ATION 07/26/2024 [facility] FOR RECORDS PERTAINING TO PATIENTS WHO ARE OR HAVE BEEN ENROLLED IN A CHEMICAL DEPENDENCY/SUBSTANCEABUSE PROGRAM, SOME INFORMATION MAY BE OMITTED. This clinical summary was aggregated from multiple sources. Caution should be exercised in using it in the provision of clinical care. This summary normalizes information from multiple sources, and as a consequence, information in this document may materially change the coding, format and clinical context of patient data. In addition, data may be omitted in some cases. CLINICAL DECISIONS SHOULD BE BASED ON THE PRIMARY CLINICAL RECORDS. [facility]. provides no warranty or guarantee of the accuracy or completeness of information in this document.
[2024-09-29] MEDS: Albuterol 2.5 MG/3 ML VIAL.NEB. INHALATION (03:00)
[2024-09-29] MEDS: Ipratropium/Albuterol Sulfate 3 ML AMPUL.NEB INHALATION ×5 (03:00→19:39)
[2024-09-29 03:06] LABS: Pro- Brain NATRIURETIC PEPTIDE 518 pg/mL (<=900)
[2024-09-29 03:08] LABS: Anion Gap 10 (5-15); BUN 18 mg/dL (4-19); BUN/Creat Ratio 25.5 RATIO (10-20); Calcium,Total 8.9 mg/dL (7.6-11.0); Carbon Dioxide 33.1 mmol/L (21.0-32.0); Chloride 93 mmol/L (98-108); EST Glomerular Filtration Rate 94 (>60); Estimated Creatinine Clearance 64.35 ml/min (50-250); Glucose 129 mg/dL (70-99); Potassium 4.4 mmol/L (3.3-5.1); Sodium Level 136 mmol/L (133-145)
--- NOTE | 2024-09-29 04:03 | PCM.HP.STD ---
HPI - General General Date of Admission: 09/29/24 Date of Service: 09/29/24 Chief Complaint: Dyspnea, wheezing, cough. HPI Narrative The patient is a 69 y/o F w/ PMHx: GERD, RLS, Anxiety and Depression, Former tobacco use, Former EtOH Abuse, Hx Non-small cell lung cancer status post right lung lobectomy remotely 2003, COPD/Asthma with Chronic Hypoxic Respiratory Failure with allergic rhinitis, HTN who presents to the [facility] ED on 09/29/2024 with history of ~ 1 weeks worsening dyspnea, wheezing, nonproductive cough prompting her to utilize aggressive nebulizer treatments at home as well as increasing her home chronic prednisone therapy but unfortunately she continued to have worsening symptoms more severe over the last 24 hours with no recent fever, chills, URI type symptoms prompting eventual ED evaluation. Patient does report she recently quit smoking several weeks previous and is asking for nicotine replacement. Workup in the ED included T99.1, heart 140, BP 190/92, respiratory rate 24, 94% on 3 L nasal cannula, CBC with WBC 10.6, hemoglobin 13.6, platelet 198 with left shift, BMP with chloride 93,, oxide 33.1, BUN/creat 18/0.70, GFR 94, glucose 129, magnesium 2.0, NT proBNP 05/31/2017, chest x-ray with emphysematous changes with no acute cardiopulmonary findings. In the ED patient ministered DuoNeb therapy, albuterol, Solu-Medrol 125 mg IV x 1. PFSH Medical History RLS (restless legs syndrome) History of ETOH abuse Chronic hypoxic respiratory failure, on home oxygen therapy COPD (chronic obstructive pulmonary disease) Anxiety Depression Smoker Asthma Hypertension Migraines Medical History no medical history Home Medications ?Medication ?Instructions ?Recorded ?Last Taken ?Type albuterol sulfate 90 mcg/actuation 1 - 2 puff inhalation Q4H PRN PRN 04/18/13 09/23/14 History aerosol inhaler (Ventolin HFA) Bronchodialation cyclobenzaprine 10 mg tablet 10 mg PO Q12H pain 04/18/13 09/23/14 History 10 MG fluticasone propionate 50 1 spray intranasal DAILY nasal 04/18/13 09/23/14 History mcg/actuation nasal congestion spray,suspension montelukast 10 mg tablet 10 mg PO DAILY allergies 04/18/13 09/23/14 History 10 MG omeprazole 20 mg capsule,delayed 20 mg PO DAILY heart burn 04/18/13 09/23/14 History release 20 MG tiotropium bromide 18 mcg capsule 1 puff inhalation DAILY wheezing 04/18/13 09/23/14 History with inhalation device (Spiriva with HandiHaler) verapamil 240 mg tablet,extended 360 mg PO DAILY heart 04/18/13 09/23/14 History release 360 MG Oxygen, Home [Home Oxygen] 2.5 lpm PRN PRN Dyspnea 10/22/13 09/23/14 History sertraline 100 mg tablet 100 mg PO DAILY insomina 10/22/13 09/23/14 History fluticasone 500 mcg-salmeterol 50 1 puff inhalation BID shortness of 10/26/13 09/23/14 Rx mcg/dose blistr powdr for breath ##1 inhalation (Advair Diskus) Ropinirole Hcl 0.25 mg PO QHS restless legs 09/23/14 Unknown History prednisone 10 mg tablet 15 mg PO PRN PRN FLARE UPS 04/03/15 Unknown History ipratropium 0.5 mg-albuterol 3 mg 3 ml inhalation Q4HWA.RT wheezing 05/13/16 Unknown Rx (2.5 mg base)/3 mL nebulization ##30 soln lorazepam 0.5 mg tablet 0.5 mg PO QHS anxiety #7 tabs 05/05/20 Unknown Rx nicotine (polacrilex) 2 mg gum 2 mg buccal Q2H #20 ea 07/22/23 Unknown Rx (Nicorette) azithromycin 250 mg tablet See Rx Instructions PO .COMPLEX #6 10/18/23 Unknown Rx (Zithromax) tabs cholecalciferol (vitamin D3) 50 50 mcg PO DAILY 10/18/23 Unknown History mcg (2,000 unit) capsule (Vitamin D3) ipratropium 0.5 mg-albuterol 3 mg 3 ml inhalation Q6H PRN shortness 10/18/23 Unknown Rx (2.5 mg base)/3 mL nebulization of breath or wheezing #180 mL soln prednisone 20 mg tablet 40 mg (2 x 20 mg) PO DAILY 5 days 10/18/23 Unknown Rx #10 tabs Allergy/AdvReac Type Severity Reaction Status Date / Time No Known Allergies Allergy Verified 09/29/24 02:19 Family History Mother Hypertension Throat cancer Father Hypertension Stomach cancer Family History no significant family his Surgical History H/O exploratory laparotomy History of lung surgery History of cholecystectomy Social History household members: none Smoking Status: Former smoker alcohol intake: former substance use type: does not use ROS ROS Narrative Admission Review of Systems: CONSTITUTIONAL: No weight loss, fever, chills, + weakness or fatigue. HEENT: Eyes: No visual loss, blurred vision, double vision or yellow sclerae. Ears, Nose, Throat: No hearing loss, sneezing, congestion, runny nose or sore throat. SKIN: No rash or itching, lesions, wounds. CARDIOVASCULAR: No chest pain, chest pressure or chest discomfort, palpitations, edema, orthopnea, syncopal events. RESPIRATORY: + Dyspnea, cough without markedly productive sputum, wheezing. No hemoptysis. GASTROINTESTINAL: No anorexia, nausea, vomiting or diarrhea, abdominal pain, melena, BRBPR. GENITOURINARY: No dysuria, frequency, urgency or retention. NEUROLOGICAL: No headache, dizziness, syncope, paralysis, ataxia, numbness or tingling in the extremities, focal weakness, change in bowel or bladder control, seizure. MUSCULOSKELETAL: + muscle, back pain, joint pain or stiffness. HEMATOLOGIC: No anemia, bleeding or bruising. LYMPHATICS: No enlarged nodes. No history of splenectomy. PSYCHIATRIC: + History of anxiety and depression. ENDOCRINOLOGIC: No reports of sweating, cold or heat intolerance. No polyuria or polydipsia. ALLERGIES: + Allergic rhinitis. Vital Signs Vital Signs Vital Signs: 09/29/24 02:19 09/29/24 02:23 09/29/24 02:25 Temperature 99.1 F 99.1 F Temperature Source Oral Oral Pulse Rate 140 H 140 H Respiratory Rate 24 H 25 H Respiratory Effort Short of Breath Respiratory Pattern Tachypnea Blood Pressure 190/92 H 190/92 H Blood Pressure Mean 124 124 Pulse Ox 94 96 Oxygen Delivery Method Nasal Cannula Nasal Cannula Nasal Cannula Oxygen Flow Rate (L/min) 3 3 3 09/29/24 03:00 09/29/24 03:23 Temperature 98.8 F Temperature Source Oral Pulse Rate 119 H 116 H Respiratory Rate 20 H 24 H Respiratory Effort Respiratory Pattern Normal Blood Pressure 154/89 H Blood Pressure Mean 110 Pulse Ox 97 Oxygen Delivery Method Nasal Cannula Oxygen Flow Rate (L/min) 3 Weight Weight: 157 lb 10.088 oz Body Mass Index (BMI) 27.0 Physical Exam Narrative Physical Examination: General: Awake, alert, oriented x 3 and cooperative, seated upright in the ED bed, fatigued, persistent tachypnea and some accessory muscle usage but no overt distress. Skin: Normal color, normal turgor, no icterus, no cyanosis. HEENT: AT/NC, EOMI, PERRLA, MMM, no carotid bruits or JVD noted. Lungs: Severely diffusely diminished, > bases, on home 3L NC supplementation, persistent tachypnea and some accessory muscle usage but no overt distress, occasional soft end expiratory wheezing but very minimal as very poor air movement noted, no rales or rhonchi. Heart: Mildly tachycardic with regular rhythm; no gallop, rub audible. Abdomen: Soft, overweight, NTTP, ND, normal BS, no no appreciated HSM. Extremities: No cyanosis, clubbing, or edema. Neurological: Patient awake, alert, oriented as noted, cognitive function intact; pupils equally reactive to light and accommodation, cranial nerves gross normal, moving all 4 extremities, no focal deficits, strength severely globally decreased secondary to acute presentation complaints. Psychiatric: Affect appears fatigued, no acute evidence of depressive or anxiety feelings but does have underlying history. Results Lab / Micro Data 09/29/24 02:30 09/29/24 02:30 Labs: Laboratory Results - last 24 hr 09/29/24 02:30: WBC 10.6, RBC 4.88, Hgb 13.6, Hct 41.7, MCV 85.5, MCH 27.9, MCHC 32.6, RDW Std Deviation 40.6, RDW Coeff of Augustin 13.1, Plt Count 198, MPV 9.7, Immature Gran % (Auto) 0.500, Neut % (Auto) 78.5 H, Lymph % (Auto) 13.2 L, Day % (Auto) 6.9, Eos % (Auto) 0.7, Baso % (Auto) 0.2, Absolute Neuts (auto) 8.4 H, Absolute Lymphs (auto) 1.40, Nucleated RBC % 0, Sodium 136, Potassium 4.4, Chloride 93 L, Carbon Dioxide 33.1 H, Anion Gap 10, BUN 18, Creatinine 0.70, Estim Creat Clear Calc 64.35, Est GFR (MDRD) Non-Af 94, BUN/Creatinine Ratio 25.5 H, Glucose 129 H, Calcium 8.9, Magnesium 2.0, NT pro BNP II 518 Micro: Microbiology 09/29/24 02:30 Mucosa - Nose SARS-CoV-2, Influenza & RSV (PCR) - Final Imaging Radiology Impression Chest X-Ray 09/29/24 02:47 IMPRESSION: Stable appearance of the chest. Emphysematous changes without evidence of an acute cardiopulmonary abnormality. Reading Location: [id number] Assessment & Plan Assessment/Plan (1) COPD with acute exacerbation: PLAN: Plan The patient is a 69 y/o F w/ PMHx: GERD, RLS, Anxiety and Depression, Former tobacco use, Former EtOH Abuse, Hx Non-small cell lung cancer status post right lung lobectomy remotely 2003, COPD/Asthma with Chronic Hypoxic Respiratory Failure with allergic rhinitis, HTN who presents to the [facility] ED on 09/29/2024 with history of ~ 1 weeks worsening dyspnea, wheezing, nonproductive cough prompting her to utilize aggressive nebulizer treatments at home as well as increasing her home chronic prednisone therapy but unfortunately she continued to have worsening symptoms more severe over the last 24 hours with no recent fever, chills, URI type symptoms prompting eventual ED evaluation. #1. Acute on Chronic COPD exacerbation with chronic hypoxic respiratory failure: Will admit to PCU, will obtain ABG, will maintain on oxygen with wean as tolerated to home oxygen supplementation, continue ATC duonebs, PRN albuterol, IV methylprednisolone, HOB, IS parameters, will obtain sputum Cx, respiratory viral panel, procalcitonin, will hold on immediately abx therapy but low threshold to add if appropriate. #2. History non-small cell lung cancer: Patient diagnosed remotely, status post right lung lobectomy, considered in remission, encourage continued follow-up outpatient as previously arranged. #3. Hypertension: Continue home regimen including verapamil, PRN hydralazine. #4. Restless leg syndrome: Will continue patient on Requip regimen. #5. Anxiety and depression: Will continue patient on sertraline and low-dose lorazepam regimen. #6. Allergic rhinitis: Will continue patient home montelukast and fluticasone regimen. #7. Former alcohol abuse: Patient with previous heavy alcohol use, encourage continued sobriety. #8. Former tobacco use: Patient just recently quit approximately 3 weeks prior, had smoked in the past and quit previously but apparently it picked up again. Encourage continued tobacco cessation. #9. GERD: Will continue patient on PPI. #10. DVT prophylaxis: Lovenox. #11. CODE status: Patient HCPOA and living will are not in place but she notes she would want Mike her significant other to be her medical decision-maker if necessary. Discussed CODE status at length including difference between FULL code, DNR-CCA and DNR-CC status. Following discussions about the differences in these status, requested Full Code status. Charges/Coding Visit Charges Inpatient E&M: 93269 Init Hosp L3
--- NOTE | 2024-09-29 04:07 | EX.ED.DYSGE1 ---
HPI History of Present Illness Chief Complaint: Shortness of Breath Informant: patient and EMS Narrative Narrative: Patient is a 69-year-old female with past medical history of hypertension and COPD who wears 2 to 3 L nasal cannula oxygen 16/11. She states that she has a home nebulizer machine and takes prednisone every other day. She states over the past 5 to 7 days she has been having increased cough and shortness of breath. Secondary to this she increased her prednisone to 40 mg and has been taking a reported taper. Despite the added prednisone and her continued use of breathing treatments she states cough and shortness of breath has persisted. Secondary to that she presents for evaluation [facility] Medical History RLS (restless legs syndrome) History of ETOH abuse Chronic hypoxic respiratory failure, on home oxygen therapy COPD (chronic obstructive pulmonary disease) Anxiety Depression Smoker Asthma Hypertension Migraines Medical History no medical history Home Medications ?Medication ?Instructions ?Recorded ?Last Taken ?Type albuterol sulfate 90 mcg/actuation 1 - 2 puff inhalation Q4H PRN PRN 04/18/13 09/23/14 History aerosol inhaler (Ventolin HFA) Bronchodialation cyclobenzaprine 10 mg tablet 10 mg PO Q12H pain 04/18/13 09/23/14 History 10 MG fluticasone propionate 50 1 spray intranasal DAILY nasal 04/18/13 09/23/14 History mcg/actuation nasal congestion spray,suspension montelukast 10 mg tablet 10 mg PO DAILY allergies 04/18/13 09/23/14 History 10 MG omeprazole 20 mg capsule,delayed 20 mg PO DAILY heart burn 04/18/13 09/23/14 History release 20 MG tiotropium bromide 18 mcg capsule 1 puff inhalation DAILY wheezing 04/18/13 09/23/14 History with inhalation device (Spiriva with HandiHaler) verapamil 240 mg tablet,extended 360 mg PO DAILY heart 04/18/13 09/23/14 History release 360 MG Oxygen, Home [Home Oxygen] 2.5 lpm PRN PRN Dyspnea 10/22/13 09/23/14 History sertraline 100 mg tablet 100 mg PO DAILY insomina 10/22/13 09/23/14 History fluticasone 500 mcg-salmeterol 50 1 puff inhalation BID shortness of 10/26/13 09/23/14 Rx mcg/dose blistr powdr for breath ##1 inhalation (Advair Diskus) Ropinirole Hcl 0.25 mg PO QHS restless legs 09/23/14 Unknown History prednisone 10 mg tablet 15 mg PO PRN PRN FLARE UPS 04/03/15 Unknown History ipratropium 0.5 mg-albuterol 3 mg 3 ml inhalation Q4HWA.RT wheezing 05/13/16 Unknown Rx (2.5 mg base)/3 mL nebulization ##30 soln lorazepam 0.5 mg tablet 0.5 mg PO QHS anxiety #7 tabs 05/05/20 Unknown Rx nicotine (polacrilex) 2 mg gum 2 mg buccal Q2H #20 ea 07/22/23 Unknown Rx (Nicorette) azithromycin 250 mg tablet See Rx Instructions PO .COMPLEX #6 10/18/23 Unknown Rx (Zithromax) tabs cholecalciferol (vitamin D3) 50 50 mcg PO DAILY 10/18/23 Unknown History mcg (2,000 unit) capsule (Vitamin D3) ipratropium 0.5 mg-albuterol 3 mg 3 ml inhalation Q6H PRN shortness 10/18/23 Unknown Rx (2.5 mg base)/3 mL nebulization of breath or wheezing #180 mL soln prednisone 20 mg tablet 40 mg (2 x 20 mg) PO DAILY 5 days 10/18/23 Unknown Rx #10 tabs Allergy/AdvReac Type Severity Reaction Status Date / Time No Known Allergies Allergy Verified 09/29/24 02:19 Family History Mother Hypertension Throat cancer Father Hypertension Stomach cancer Family History no significant family his Surgical History H/O exploratory laparotomy History of lung surgery History of cholecystectomy Social History household members: none Smoking Status: Former smoker alcohol intake: former substance use type: does not use ROS ROS ED Constitutional Constitutional ED: Denies chills or fever(s) ENT ENT ED: Denies rhinorrhea or sore throat Cardiovascular Cardiovascular: Denies chest pain, palpitations or racing heartbeat Respiratory/Chest Respiratory/Chest: Reports cough and dyspnea Gastrointestinal Gastrointestinal: Denies abdominal pain, diarrhea, nausea or vomiting Genitourinary Genitourinary ED: Denies dysuria Musculoskeletal Musculoskeletal: Denies myalgias Integumentary Denies rash Neurologic Neurologic: Reports weakness; Denies headache(s) Hematologic/Lymphatic Hematologic/Lymphatic: Denies easy bleeding or easy bruising Allergic/Immunologic Allergic/Immunologic ED: Denies mouth swelling or tongue swelling EXAM Physical Exam Const Vital Signs: 09/29/24 02:19 09/29/24 02:23 09/29/24 02:25 Temperature 99.1 F 99.1 F Temperature Source Oral Oral Pulse Rate 140 H 140 H Respiratory Rate 24 H 25 H Respiratory Effort Short of Breath Respiratory Pattern Tachypnea Blood Pressure 190/92 H 190/92 H Blood Pressure Mean 124 124 Pulse Ox 94 96 Oxygen Delivery Method Nasal Cannula Nasal Cannula Nasal Cannula Oxygen Flow Rate (L/min) 3 3 3 09/29/24 03:00 09/29/24 03:23 Temperature 98.8 F Temperature Source Oral Pulse Rate 119 H 116 H Respiratory Rate 20 H 24 H Respiratory Effort Respiratory Pattern Normal Blood Pressure 154/89 H Blood Pressure Mean 110 Pulse Ox 97 Oxygen Delivery Method Nasal Cannula Oxygen Flow Rate (L/min) 3 Positive well nourished, well developed and unkempt General Appearance ED: unkempt and well developed; Negative for pallor HEENT Reports dry mucous membranes HEENT Narrative: Mucous membranes are dry and tacky No tongue or lip swelling no oral lesions no airway edema or compromise Mouth ED: Yes dry mucous membranes Mouth: dry mucous membranes Eyes PERRL and EOMs intact bilaterally General Eye ED: Negative for scleral icterus Neck supple and no JVD Neck Narrative: No nuchal rigidity or meningeal signs Chest Wall palpation of chest normal Resp Resp Narrative: Patient is tachypneic with accessory muscle use. Breath sounds are severely diminished throughout and there is diffuse inspiratory and expiratory wheezing noted Cardio regular rhythm Rate: tachycardic and other Other Details: Tachycardic rate with regular rhythm Radial and carotid pulses are equal and symmetric GI normal to inspection, nondistended, normoactive bowel sounds, non-tender, non-distended and no masses Auscultation: normoactive bowel sounds Palpation: soft Extremity normal to inspection Extremity Narrative: No asymmetric edema no pitting edema negative Homans' sign bilaterally Neuro oriented x3, CN's II-XII intact bilaterally and no sensory deficits noted Sensorium / Orientation: alert Motor Exam: strength 5/5 throughout Psych mental status grossly normal Appearance: unkempt Skin no rashes or lesions noted General Skin Exam: Negative for jaundice or pallor MDM MDM MDM Narrative Medical decision making narrative: Patient arrived to the ER tachycardic and tachypneic but satting in the mid 90s on her normal 2 to 3 L nasal cannula oxygen. The patient denies any chest pain and reports that her increased shortness of breath is associated with cough but states has been no fevers chills or known sick contact. As she has been taking steroids and using her breathing treatments without symptom improvement there is concern for underlying pneumonia pneumothorax or CHF exacerbation. Patient could also have increased shortness of breath secondary to acute blood loss anemia. Therefore basic labs viral swab and chest x-ray were obtained. White count is normal and she is afebrile going against an infectious process. Chest x-ray revealed no sign of pneumonia pneumothorax or pleural effusion. COVID influenza and RSV testing were negative. H&H is stable going against acute blood loss anemia. The patient was given IV steroids as well as albuterol and DuoNeb nebulizers. She did have mild to moderate improvement of her symptoms but still states that she feels short of breath. As she is failing outpatient therapy at home the decision was made to contact medicine to discuss admission. After discussion with the hospitalist as the patient is failing outpatient therapy they do agree to bring her in for continued observation and treatment. History & Record Review Discussion w/independent historian: EMS personnel and Patient Lab Data Attestation: I reviewed the patient's lab results. Labs: Laboratory Results - last 24 hr 09/29/24 02:30 WBC 10.6 RBC 4.88 Hgb 13.6 Hct 41.7 MCV 85.5 MCH 27.9 MCHC 32.6 RDW Std Deviation 40.6 RDW Coeff of Augustin 13.1 Plt Count 198 MPV 9.7 Immature Gran % (Auto) 0.500 Neut % (Auto) 78.5 H Lymph % (Auto) 13.2 L [place] % (Auto) 6.9 Eos % (Auto) 0.7 Baso % (Auto) 0.2 Absolute Neuts (auto) 8.4 H Absolute Lymphs (auto) 1.40 Nucleated RBC % 0 Sodium 136 Potassium 4.4 Chloride 93 L Carbon Dioxide 33.1 H Anion Gap 10 BUN 18 Creatinine 0.70 Estim Creat Clear Calc 64.35 Est GFR (MDRD) Non-Af 94 BUN/Creatinine Ratio 25.5 H Glucose 129 H Calcium 8.9 Magnesium 2.0 NT pro BNP II 518 Radiography Diagnostic Testing: Clinical Impression(s) from Imaging Studies Chest X-Ray 09/29/24 02:47 IMPRESSION: Stable appearance of the chest. Emphysematous changes without evidence of an acute cardiopulmonary abnormality. Reading Location: [id number] Chest x-ray as interpreted by the emergency medicine physician reveals no acute infiltrate pneumothorax or pleural effusion Management Discussion w/another healthcare provider: Hospitalist Discharge Plan Dx/Rx/DC Orders Clinical Impression: COPD with acute exacerbation, Benign essential hypertension, Anxiety and depression Disposition Disposition: Acute Care [facility]
[2024-09-29 04:51] LABS: Allen Test Positive; Base Excess 19 mmol/L (-2 to +2); Bicarbonate 44.5 mmol/L (22-26); Blood Gas Specimen Type ART; Mode Not entered; O2 Delivery Device Cannula; PO2 83 mmHG (75-100); SITE L Radial; SO2 95 % (95-99); Total Carbon Dioxide 47 mmol/L; pCO2 79.5 mmHg (35-45); pH 7.36 (7.35-7.45)
--- OUTSIDE RECORDS SUMMARY | 2024-09-29 04:56 | XMS RPT_ITS | CCD ---
Author Organization [facility] CliniSymo Care Team Providers Care Solution Architect Name Role Phone Yoseph Fall MD Primary Care Provider Dr. Yoseph Fall Primary Care Provider Dr. Dallas Mena Emergency Provider Dr. José Cunningham Admit Provider UnavailDr. José Carter Other Provider Unavailabl e Dr. Jan Bolanos Attending Provider Dr. Jan Bolanos Other Provider Yoseph Fall MD Primary Care Provider Yoseph Fall MD Primary Care Provider Yoseph Fall Primary Care Unavailable Jan Bolanos Attending Unavailable José Cunningham Consulting Unavailable José Cunningham Admitting Unavailable Jan Bolanos Consulting Unavailable Riley Jeff Attending Unavailable Yoseph Fall Primary Care Unavailable Yoseph Fall Primary Care Unavailable Jan Bolanos Attending Unavailable José Cunningham Admitting Unavailable José Cunningham Consulting Unavailable José Cunningham Attending Unavailable Naya PAPERHANGER APPRENTICE.Iman AVILA Unavailable Jt PAPERHANGER APPRENTICE.Nelson AVILA Unavailable YOSEPH FALL Attending Unavailable YOSEPH FALL Primary Care Unavailable YOSEPH FALL Attending Unavailable YOSEPH FALL Primary Care Unavailable YOSEPH FALL Attending Unavailable YOSEPH FALL Primary Care Unavailable YOSEPH FALL Attending Unavailable YOSEPH FALL Primary Care Unavailable Tannhodustin PAPERHANGER APPRENTICE.ORTHOTIST PROSTHETIST, Iman Unavailable Unavail able Naya PAPERHANGER APPRENTICE.AUSTIN, Iman Unavailable Medications Current Medications Medication Drug [...] Do not start before June 15, 2023. [id number] 200 actuat albuterol 0.09 mg/actuat metered dose [...] muscle spasm. Disposable Gloves (DISPOSABLE LATEX-FREE GLOVES) [facility] (20 sources) Start: 8 Disposable Gloves (DISPOSABLE LATEX-FREE GLOVES) [facility] Indications: Generalized osteoarthrosis, involving [...] Start: 01-15-2023 take 1 puff(s) by [facility] twice daily fluticasone-salmeterol (ADVAIR DISKUS) 500-50 mcg/dose [...] Discontinued Start: 12-31-2021 take 1 puff(s) by [facility] twice daily fluticasone-salmeterol (ADVAIR DISKUS) 500-50 mcg/dose dsdv Inhale 1 Puff as instructed twice daily. Rinse and gargle mouth with water after use. 3 Each 3 12/31/2021 Active Start: 04-21-2021 take 1 puff(s) by [facility] twice daily fluticasone-salmeterol (ADVAIR DISKUS) 500-50 mcg/dose dsdv Inhale 1 Puff as instructed twice daily. Rinse and gargle mouth with water after use. 3 Each 3 04/21/2021 Active Start: 04-21-2021 take 1 puff(s) by [facility] twice daily fluticasone-salmeterol (ADVAIR DISKUS) 500-50 mcg/dose [...] 02/19/2023 Discontinued Start: 05-17-2020 Nebulizer Acce ssories [facility] Indications: Chronic obstructive pulmonary [...] Use as directed. Dx: COPD J44.9 nystatin [id number] unt/ml oral suspension (20 sources) Polyene Antifungal [...] an empty stomach Take 1 capsule by [facility] once daily. ON AN EMPTY STOMACH [...] by mouth every other day. PUL[facility] (20 sources) Start: 07-17-2021 P[facility] Indications: Chronic obstructive pulmonary disease, unspecified COPD type (HCC) , Moderate persistent asthma without complication (HCC) Use as directed to check oxygen saturation level 1 Each 07/17/2021 Active Start: 07-17-2021 P[facility] Indications: Chronic obstructive pulmonary disease, unspecified COPD type (HCC) , Moderate persistent asthma without complication Use as directed to check oxygen saturation level 1 Each 07/17/2021 Active Start: 07-17-2021 [facility] Indications: Chronic obstructive pulmonary disease, unspecified COPD type (HCC) , Moderate persistent asthma without complication Use as directed to check oxygen saturation level 1 Each 0 07/17/2021 Active Comment on above: Use as directed to [facility] level rOPINIRole 0.25 mg oral [...] on above: Take [address] [facility] once daily. tiotropium 0.018 mg inhalation powder [...] 1 capsule as instructed once daily. Tiotropium [place] (Spiriva With Handihaler) 1 PUFF inhaler (2 sources) Start: 04-18-20 take 1 puff(s) by inhalation once daily Tiotropium [place] (Spiriva With Handihaler) 1 PUFF inhaler Active [...] 0.5 mg/ml oral solution (20 sources) Uncompetitive K-qmjprc-E-aspartat e Receptor Antagonist, Sigma-1 Agonist, alpha-1 Adrenergic [...] Test Name Value Interpretation Reference Range Facility [facility] 07-24-2024 CNPN Telephone (FAMPWS) DENIA GONZALEZ ([id number]) 1955 F Date Time Provider Department 07/24/24 YOSEPH FALL [facility] During your visit today, we recorded [...] rash. He states the Pt has a private branch exchange repairer that come in tomorrow and she could [...] directed. Dx: COPD J44.9 - Nebulizer Accessories [facility] Mask and supplies as needed - [facility] Use as directed to check oxygen saturation level - ammonium lactate (AMLACTIN) 12 % lotion Apply 1 application to affected area as needed for Dry Skin. - losartan (COZAAR) 50 mg tablet Take 0.5 tablets by mouth once daily. - OXYGEN, HOME THERAPY, 2.5 L/min by Nasal Cannula route continuous. Use as directred - Disposable Gloves (DISPOSABLE LATEX-FREE GLOVES) [facility] 1 Box once every [...] classification (HC (more content not included)... Normal [facility] [place] 07-12-2024 [place] Telephone (FAMPWS) DENIA GONZALEZ ([id number]) 1955 F Date Time Provider Department 07/12/24 YOSEPH FALL During your visit today, we recorded the following information about you: Sukhi Marrero RN 07/12/2024 2:51 PM Akash Jenni with [facility] Medical calls to request chart notes to support patients need for continued oxygen. Most recent visits have all been [facility]. Jenni requests most recent visit be faxed. Faxed to [phone] per request. Sukhi Marrero RN Allergies As [...] directed. Dx: COPD J44.9 - Nebulizer Accessories [facility] Mask and supplies as needed - [facility] Use as directed to check oxygen saturation level - ammonium lactate (AMLACTIN) 12 % lotion Apply 1 application to affected area as needed for Dry Skin. - losartan (COZAAR) 50 mg tablet Take 0.5 tablets by mouth once daily. - OXYGEN, HOME THERAPY, 2.5 L/min by Nasal Cannula route continuous. Use as directred - Disposable Gloves (DISPOSABLE LATEX-FREE GLOVES) [facility] 1 Box once every [...] Encounter Status:Closed by SUKHI MARRERO on 07/12/24 [facility] 06-12-2024 [facility] DENIA GONZALEZ ([id number]) 1955 F Date Time Provider Department 06/12/24 YOSEPH FALL [facility] During your visit today, we recorded the following information about you: Sanjana Baca MA 06/12/2024 12:44 PM Signed Type of form: Medical Necessity for incontinence supplies. Form received via fax When form is completed, Fax form to [phone] Form has been forwarded to Physician Desk: [...] directed. Dx: COPD J44.9 - Nebulizer Accessories [facility] Mask and supplies as needed - [facility] Use as directed to check oxygen saturation level - ammonium lactate (AMLACTIN) 12 % lotion Apply 1 application to affected area as needed for Dry Skin. - losartan (COZAAR) 50 mg tablet Take 0.5 tablets by mouth once daily. - OXYGEN, HOME THERAPY, 2.5 L/min by Nasal Cannula route continuous. Use as directred - Disposable Gloves (DISPOSABLE LATEX-FREE GLOVES) [facility] 1 Box once every [...] Stage 3 severe COPD by GOLD classification ([facility]*09/28/2005 Asthma [J45.909] GENERAL OSTEOARTHROSIS [M15.9] Essential hypertension, [...] Encounter Status:Closed by SANJANA BACA on 06/12/24 [facility] 06-02-2024 CNPN Telephone (INTMWS) DENIA GONZALEZ ([id number]) 1955 F Date Time Provider Department 06/02/24 YOSEPH FALL INTMWS During your visit today, we recorded the following information about you: Ban Villafana LPN 06/02/2024 8:13 AM Signed Electronic PA rec'd and completed for cyclobenzaprine. This was denied. Note from payer: CaseId:[id number];Stat us:Denied;Review Type:Prior Auth;Appeal Information: Attention:ATTN: MEDICARE [employer] [address] [address],[place], [place],[address] WebAddress:[email or web address]; Important - Please read the below note [...] for a decision on the appeal.; Payer: [employer] [phone] Electronic appeal: Supported View History Notes Time [...] to its destination. To be filled at: [employer] [address] [place] [phone] [phone] - [phone] Allergies As of Date: 06/02/2024 (No Known [...] directed. Dx: COPD J44.9 - Nebulizer Accessories [facility] Mask and supplies as needed - [facility] Use as directed to check oxygen saturation level - ammonium lactate (AMLACTIN) 12 % lotion Apply 1 application to affected area as needed for Dry Skin. - losartan (COZAAR) 50 mg tablet Take 0.5 tablets by mouth once daily. - OXYGEN, HOME THERAPY, 2.5 L/min by Nasal Cannula route continuous. Use as directred - Disposable Gloves (DISPOSABLE LATEX-FREE GLOVES) [facility] 1 Box once every [...] Noted Reso (more content not included)... Normal [facility] 03-21-2024 [facility] ([id number]) 1955 F Date Time Provider Department 03/21/24 YOSEPH FALL [facility] During your visit today, we recorded [...] Please review and advise, KAREN Werner Ashley, APRN.[facility] 03/22/2024 8:51 AM Signed The following approved [...] directed. Dx: COPD J44.9 - Nebulizer Accessories [facility] Mask and supplies as needed - [facility] Use as directed to check oxygen saturation level - ammonium lactate (AMLACTIN) 12 % lotion Apply 1 application to affected area as needed for Dry Skin. - losartan (COZAAR) 50 mg tablet Take 0.5 tablets by mouth once daily. - OXYGEN, HOME THERAPY, 2.5 L/min by Nasal Cannula route continuous. Use as directred - Disposable Gloves (DISPOSABLE LATEX-FREE GLOVES) [facility] 1 Box once every [...] PAP S (more content not included)... Normal [facility] 02-03-2024 CNPN Telephone (FAMPWS) DENIA GONZALEZ ([id number]) 1955 F Date Time Provider Department 02/03/24 YOSEPH FALL [facility] During your visit today, we recorded [...] send in antibiotic. Please review and advise, KARNE Werner Mark D, MD 02/04/2024 8:17 AM [...] Fully Assessed Reason for Visit: Patient Question [7887] Order(s):amoxicillin (AMOXIL) 875 mg tabletTake 1 tablet [...] directed. Dx: COPD J44.9 - Nebulizer [facility] and supplies as needed - [facility] Use as directed to check oxygen [...] [K59.00] 06/21/2016 (more content not included)... [facility] ([id number]) 1955 F Date Time Provider Department 02/03/24 [...] Fully Assessed Reason for Visit: Patient Question [6517] Prescriptions as of 02/03/2024 - HYDROcodone-acetamin ophen [...] directed. Dx: COPD J44.9 - Nebulizer Accessories [facility] Mask and supplies as needed - [facility] Use as directed to check oxygen saturation level - ammonium lactate (AMLACTIN) 12 % lotion Apply 1 application to affected area as needed for Dry Skin. - losartan (COZAAR) 50 mg tablet Take 0.5 tablets by mouth once daily. - OXYGEN, HOME THERAPY, 2.5 L/min by Nasal Cannula route continuous. Use as directred - Disposable Gloves (DISPOSABLE LATEX-FREE GLOVES) [facility] 1 Box once every [...] Encounter Status:Closed by Cami LOUIE on 02/03/24 [facility] 11-08-2023 [facility] Telephone (INTMWS) DENIA GONZALEZ ([id number]) 1955 F Date Time Provider Department 11/08/23 [...] drug. This restriction has been approved by [facility]. This restriction only applies to patients greater [...] this decision on the coverage criteria for: [address] EDGAR Standard MEDD Prior Authorization Policy - [...] directed. Dx: COPD J44.9 - Nebulizer Accessories [facility] Mask and supplies as needed - [facility] Use as directed to check oxygen saturation level - ammonium lactate (AMLACTIN) 12 % lotion Apply 1 application to affected area as needed for Dry Skin. - losartan (COZAAR) 50 mg tablet Take 0.5 tablets by mouth once daily. - OXYGEN, HOME THERAPY, 2.5 L/min by Nasal Cannula route continuous. Use as directred - Disposable Gloves (DISPOSABLE LATEX-FREE GLOVES) [facility] 1 Box once every [...] CANCER [C34.10] (more content not included)... Normal [facility] CNPNon 10-22-2023 CNPN Telephone (4CQ) DENIA GONZALEZ ([id number]) 1955 F Date Time Provider Department 10/22/23 [...] Notify pt with providers decision. Uses Drug [facility]. JOS Sandy Mark D, MD 10/22/2023 [...] directed. Dx: COPD J44.9 - Nebulizer Accessories [facility] Mask and supplies as needed - [facility] Use as directed to check oxygen saturation level - ammonium lactate (AMLACTIN) 12 % lotion Apply 1 application to affected area as needed for Dry Skin. - losartan (COZAAR) 50 mg tablet Take 0.5 tablets by mouth once daily. - OXYGEN, HOME THERAPY, 2.5 L/min by Nasal Cannula route continuous. Use as directred - Disposable Gloves (DISPOSABLE LATEX-FREE GLOVES) [facility] 1 Box once every [...] Meds Co (more content not included)... Normal [facility] 12 Lead EKGon 10-18-2023 12 Lead EKG [facility] Cardiovascular Services [address] [place] [address] 12 Lead EKG 10/18/23 0102 MR#: [id number] Acct: [id number] Name: DENIA GONZALEZ Rep #: [id number] : 1955 68 From: Junito Madrid MD [...] Borderline ECG Confirmed by Junito Madrid ([id number]), food editor LEORA RESTREPO ([id number]) on 10/19/2023 8:02:54 AM Referred By: RUTH Confirmed By:Junito Madrid 10/19/23 0802 Date Junito Madrid MD CC: Dr. Yoseph Fall MD; Riley Jeff DO Signed Normal [facility] BNP,B-Type NATRIURETIC PEPTI Vicente 10-18-2023 Natriuretic peptide B (Bld) [Mass/Vol] 128.6 pg/mL High 0-100 [facility] Comment on above: Performed By: #### L 501.5200, L100.0100, L500.2500, L503.6620 ####[facility] [address] [place], [address] Basic Metabolic Profile (BMP )on 10-18-2023 BUN/CRE 34.7 RATIO High 10-20 [facility] Comment on above: Performed By: #### L 501.5200, L100.0100, L500.2500, L503.6620 ####[facility] [address] [place], [address] CA,Total 9.2 mg/dL Normal 8.5-10.1 [facility] Comment on above: Performed By: #### L 501.5200, L100.0100, L500.2500, L503.6620 ####[facility] [address] [place], [address] Chloride [Moles/Vol] 99 mmol/L Normal 98-107 [facility] Comment on above: Performed By: #### L 501.5200, L100.0100, L500.2500, L503.6620 ####[facility] [address] [place], [address] CO2 [Moles/Vol] 29.0 mmol/L Normal 21.0-32.0 [facility] Comment on above: Performed By: #### L 501.5200, L100.0100, L500.2500, L503.6620 ####[facility] [address] [place], [address] Creatinine [Mass/Vol] 0.66 mg/dL Normal 0.55-1.02 [facility] Comment on above: Result Comment: The validity of the calculated GFR GFRAA in patients over 70 years has not been determined. Clinical correlation is essential. Performed By: #### L 501.5200, L100.0100, L500.2500, L503.6620 ####[facility] [address] [place], [address] ECRCL 65.56 ml/min Normal [facility] Comment on above: Performed By: #### L 501.5200, L100.0100, L500.2500, L503.6620 ####[facility] [address] [place], [address] EST GFR - AA 114 mL/min Normal >60 [facility] Comment on above: Result Comment: Afri can Albanian GFR Calc Performed By: #### L 501.5200, L100.0100, L500.2500, L503.6620 ####[facility] [address] [place], [address] GAP 10 Normal 5-15 [facility] Comment on above: Performed By: #### L 501.5200, L100.0100, L500.2500, L503.6620 ####[facility] [address] [place], [address] GFR/1.73 sq M.predicted among non-blacks MDRD (S/P/Bld) [Vol rate/Area] 94 mL/min/{1.73_m2} Normal >60 [facility] Comment on above: Result Comment: Non- GFR Calc Performed By: #### L 501.5200, L100.0100, L500.2500, L503.6620 ####[facility] [address] [place], [address] Glucose [Mass/Vol] 80 mg/dL Normal 74-[address] [facility] Comment on above: Performed By: #### L 501.5200, L100.0100, L500.2500, L503.6620 ####[facility] [address] [place], [address] Potassium [Moles/Vol] 3.8 mmol/L Normal 3.5-5.1 [facility] Comment on above: Performed By: #### L 501.5200, L100.0100, L500.2500, L503.6620 ####[facility] [address] [place], [address] Sodium [Moles/Vol] 138 mmol/L Normal 136-[address] [facility] Comment on above: Performed By: #### L 501.5200, L100.0100, L500.2500, L503.6620 ####[facility] [address] [place], [address] Urea nitrogen [Mass/Vol] 23 mg/dL High 7-18 [facility] Comment on above: Performed By: #### L 501.5200, L100.0100, L500.2500, L503.6620 ####[facility] [address] [place], [address] CBC W/Diff, Automatedon 06-2 4-2023 Absolute Lymph 2.10 X10 3/uL Normal 0.83-4.51 [facility] Comment on above: Performed By: #### L 501.5200, L100.0100, L500.2500, L503.6620 ####[facility] [address] [place], [address] Absolute Neut 9.9 X10 3/uL High 2.0-7.7 [facility] Comment on above: Performed By: #### L 501.5200, L100.0100, L500.2500, L503.6620 ####[facility] [address] [place], [address] Basophils/100 WBC (Bld) 0.3 % Normal 0-1 [facility] Comment on above: Performed By: #### L 501.5200, L100.0100, L500.2500, L503.6620 ####[facility] [address] [place], [address] Eosinophils/100 WBC (Bld) 0.2 % Normal 0-5 [facility] Comment on above: Performed By: #### L 501.5200, L100.0100, L500.2500, L503.6620 ####[facility] [address] [place], [address] Erythrocyte distribution width (RBC) [Ratio] 13.6 % Normal 11.6-14.6 [facility] Comment on above: Performed By: #### L 501.5200, L100.0100, L500.2500, L503.6620 ####[facility] [address] [place], [address] Hematocrit (Bld) [Volume fraction] 41.2 % Normal 37-47 [facility] Comment on above: Performed By: #### L 501.5200, L100.0100, L500.2500, L503.6620 ####[facility] [address] [place], [address] Hemoglobin (Bld) [Mass/Vol] 13.1 g/dL Normal 12.0-15.0 [facility] Comment on above: Performed By: #### L 501.5200, L100.0100, L500.2500, L503.6620 ####[facility] [address] [place], [address] IG% 0.300 Normal 0.0-0.9 [facility] Comment on above: Result Comment: IG% - Immature Granulocytes (promyelocytes, myelocytes and metamyelocytes) > 1% indicates that a LEFT SHIFT is Present. Performed By: #### L 501.5200, L100.0100, L500.2500, L503.6620 ####[facility] [address] [place], [address] Lymphocytes/100 WBC (Bld) 16.2 % Low 19-41 [facility] Comment on above: Performed By: #### L 501.5200, L100.0100, L500.2500, L503.6620 ####[facility] [address] [place], [address] MCH (RBC) [Entitic mass] 26.9 pg Low 27.0-32.0 [facility] Comment on above: Performed By: #### L 501.5200, L100.0100, L500.2500, L503.6620 ####[facility] [address] [place], [address] MCHC (RBC) [Mass/Vol] 31.8 g/dL Low 32-36 [facility] Comment on above: Performed By: #### L 501.5200, L100.0100, L500.2500, L503.6620 ####[facility] [address] [place], [address] MCV (RBC) [Entitic vol] 84.6 fL Normal 81-[address] [facility] Comment on above: Performed By: #### L 501.5200, L100.0100, L500.2500, L503.6620 ####[facility] [address] [place], [address] Monocytes/100 WBC (Bld) 7.2 % Normal 0-[address] [facility] Comment on above: Performed By: #### L 501.5200, L100.0100, L500.2500, L503.6620 ####[facility] [address] [place], [address] Neutrophils/100 WBC (Bld) 75.8 % High 47-70 [facility] Comment on above: Performed By: #### L 501.5200, L100.0100, L500.2500, L503.6620 ####[facility] [address] [place], [address] Nucleated RBC (Bld) [#/Vol] 0 10*3/uL Normal 0-5 [facility] Comment on above: Performed By: #### L 501.5200, L100.0100, L500.2500, L503.6620 ####[facility] [address] [place], [address] Platelet mean volume (Bld) [Entitic vol] 9.5 fL Normal 6.2-12.0 [facility] Comment on above: Performed By: #### L 501.5200, L100.0100, L500.2500, L503.6620 ####[facility] [address] [place], [address] Platelets (Bld) [#/Vol] 272 10*3/uL Normal 150-450 [facility] Comment on above: Performed By: #### L 501.5200, L100.0100, L500.2500, L503.6620 ####[facility] [address] [place], [address] RBC (Bld) [#/Vol] 4.87 10*6/uL Normal 4.2-5.4 [facility] Comment on above: Performed By: #### L 501.5200, L100.0100, L500.2500, L503.6620 ####[facility] [address] [place], [address] RDW SD 42.2 fl Normal 35.1-43.9 [facility] Comment on above: Performed By: #### L 501.5200, L100.0100, L500.2500, L503.6620 ####[facility] [address] [place], [address] WBC (Bld) [#/Vol] 13.0 10*3/uL High 4.4-11.0 [facility] Comment on above: Performed By: #### L 501.5200, L100.0100, L500.2500, L503.6620 ####[facility] [address] [place], [address] Chest PA and Lateralon 10-17 Chest PA and Lateral [facility] Imaging Services [address] [place] [address] Chest PA and Lateral MR#: [id number] Acct: [id number] Name: CARLOSDENIA S Rep #: [id number] : 1955 F 68 From: Nona Liu PCP: Dr. Yoseph Fall MD Status: REG ER Study: Chest PA and Lateral Date of Exam: 10/18/23 Exam# [id number] Ordering Dr: Riley Jeff DO [id number] INDICATION: dyspnea EXAMINATION/TECHNIQU E: X-RAY - XR [...] 2:43 EDT Reading Location ID and State: [facility] / [place] Tel , Service support , CC: Dr. Yoseph Fall MD; Riley Jeff DO Material Attendant: Signed Normal [facility] Emergency Department Summary on 10-18-2023 Emergency Department Summary [facility] Medical Records Department [address] [place] [address] Emergency Department Summary 10/18/23 MR#: [id number] Acct: [id number] Name: DENIA GONZALEZ Rep #: [id number] : 1955 68 From: Riley Jeff DO [...] denies any chest pain associated with this. [facility] Medical History (Updated 10/18/23 @ 05:51 [...] 01:45 10/17 (more content not included)... Normal [facility] M100.678on 10-18-2023 M100.678 SARS-CoV-2 (COVID 19) Negative INFLUENZA A Negative INFLUENZA B Negative RSV PCR Negative Normal [facility] Comment on above: Performed By: #### M 100.678 #### [facility] [address] [place], [place], [address] Magnesiumon 10-18-2023 Magnesium [Mass/Vol] 1.9 mg/dL Normal 1.6-2.6 [facility] Comment on above: Performed By: #### L 501.5200, L100.0100, L500.2500, L503.6620 ####[facility] [address] [place], [place], [address] CNPNon 10-01-2023 [facility] (FAMWS) DENIA GONZALEZ ([id number]) 1955 F Date Time Provider Department 10/01/23 [facility] During [facility] visit today, we recorded the following information about you: Sukhi Marrero, KAREN 10/01/2023 12:01 PM Signed Dqvbfwxe-No-Krf calls to ask if provider would send [...] directed. Dx: COPD J44.9 - Nebulizer Accessories [facility] [place] Mask and supplies as needed - rOPINIRole (REQUIP) 0.25 mg tablet Take 1 tablet by mouth daily at bedtime. - PULSE OXIMETER [facility] Use as directed to check oxygen saturation level - ammonium lactate (AMLACTIN) 12 % lotion Apply 1 application to affected area as needed for Dry Skin. - losartan (COZAAR) 50 mg tablet Take 0.5 tablets by mouth once daily. - OXYGEN, HOME THERAPY, 2.5 L/min by Nasal Cannula route continuous. Use as directred - Disposable Gloves (DISPOSABLE LATEX-FREE GLOVES) [facility] 1 Box once every [...] 07/15/2021 Cholelithias (more content not included)... Normal [facility] Respiratory Cultureon 2023 RESPC #2 TESTING PERFORMED AT [facility]. ORIGINAL REPORT ON FILE IN LAB [...] MODE S Tobramycin Islt MODE S Normal [facility] Comment on above: Performed By: #### M 100.6710, M100.1999 ####[facility] [address], [address] Discharge Instructionon 06-25 Discharge Instruction [facility] Medical Records Department [address] [place] [address] Instructions for Home/Discharge Instructions 07/22/23 1603 MR#: [id number] Acct: [id number] Name: DENIA GONZALEZ Rep #: [id number] : 1955 68 From: Jan Bolanos MD [...] DO; Dr. Yoseph Fall MD Signed Normal [facility] Absolute lymphocyte countOrd ered By: Jan Bolanos on 07-21-2023 Lymphocytes Auto (Unsp spec) [#/Vol] 0.61 10*3/uL 0.83-4.51 [facility] Automated lymphocyte count a s percentage of total leukocytesOrdered By: Jan Bolanos on 07-21-2023 Lymphocytes/100 WBC Auto (Unsp spec) 8.8 % 19-41 [facility] Basic Metabolic Profile (BMP )on 07-21-2023 BUN/CRE 27.8 RATIO High 10-20 [facility] Comment on above: Performed By: #### L 100.0100, L500.2500 ####[facility] [address] [place], [address] CA,Total 8.6 mg/dL Normal 8.5-10.1 [facility] Comment on above: Performed By: #### L 100.0100, L500.2500 ####[facility] [address] [place], [address] Chloride [Moles/Vol] 107 mmol/L Normal 98-107 [facility] Comment on above: Performed By: #### L 100.0100, L500.2500 ####[facility] [address] [place], [address] CO2 [Moles/Vol] 30.0 mmol/L Normal 21.0-32.0 [facility] Comment on above: Performed By: #### L 100.0100, L500.2500 ####[facility] [address] [place], [address] Creatinine [Mass/Vol] 0.47 mg/dL Low 0.55-1.02 [facility] Comment on above: Result Comment: The validity of the calculated GFR GFRAA in patients over 70 years has not been determined. Clinical correlation is essential. Performed By: #### L 100.0100, L500.2500 ####[facility] [address] [place], [address] ECRCL 64.83 ml/min Normal [facility] Comment on above: Performed By: #### L 100.0100, L500.2500 ####[facility] [address] [place], [address] EST GFR - AA 170 mL/min Normal >60 [facility] Comment on above: Result Comment: Afri can Albanian GFR Calc Performed By: #### L 100.0100, L500.2500 ####[facility] [address] [place], [address] GAP 3 Low 5-15 [facility] Comment on above: Performed By: #### L 100.0100, L500.2500 ####[facility] [address] [place], [address] GFR/1.73 sq M.predicted among non-blacks MDRD (S/P/Bld) [Vol rate/Area] 141 mL/min/{1.73_m2} Normal >60 [facility] Comment on above: Result Comment: Non- GFR Calc Performed By: #### L 100.0100, L500.2500 ####[facility] [address] [place], [address] Glucose [Mass/Vol] 140 mg/dL High 74-[address] [facility] Comment on above: Result Comment: Fast ing Glucose result greater than or equal to 126 mg/dL suggests DIABETES MELLITUS per A.D.A. criteria. Performed By: #### L 100.0100, L500.2500 ####[facility] [address] [place], [address] Potassium [Moles/Vol] 4.1 mmol/L Normal 3.5-5.1 [facility] Comment on above: Performed By: #### L 100.0100, L500.2500 ####[facility] [address] [place], [address] Sodium [Moles/Vol] 140 mmol/L Normal 136-[address] [facility] Comment on above: Performed By: #### L 100.0100, L500.2500 ####[facility] [address] [place], [address] Urea nitrogen [Mass/Vol] 13 mg/dL Normal 7-18 [facility] Comment on above: Performed By: #### L 100.0100, L500.2500 ####[facility] [address] [place], [address] Basophil percentageOrdered B y: Jan Bolanos on 07-21-2023 Basophils/100 WBC (Bld) 0.0 % 0-1 [facility] Chloride [Moles/Vol] 107 mmol/L 98-107 [facility] Eosinophils/100 WBC (Bld) 0.0 % 0-5 [facility] Glucose [Mass/Vol] 140 mg/dL 74-[address] [facility] Comment on above: Fasting Glucose resu lt greater than or equal to 126 mg/dL suggests DIABETES MELLITUS per A.D.A. criteria. Hemoglobin (Bld) [Mass/Vol] 12.0 g/dL 12.0-15.0 [facility] Monocytes/100 WBC (Bld) 2.7 % 0-10 [facility] Neutrophils (Bld) [#/Vol] 6.1 10*3/uL 2.0-7.7 [facility] Neutrophils/100 WBC (Bld) 88.1 % 47-70 [facility] Potassium [Moles/Vol] 4.1 mmol/L 3.5-5.1 [facility] Sodium [Moles/Vol] 140 mmol/L 136-[address] [facility] WBC (Bld) [#/Vol] 6.9 10*3/uL 4.4-11.[address] [facility] CBC W/Diff, Automatedon 06-25 Absolute Lymph 0.61 X10 3/uL Low 0.83-4.51 [facility] Comment on above: Performed By: #### L 100.0100, L500.2500 ####[facility] [address] [place], [address] Absolute Neut 6.1 X10 3/uL Normal 2.0-7.7 [facility] Comment on above: Performed By: #### L 100.0100, L500.2500 ####[facility] [address] [place], [address] Basophils/100 WBC (Bld) 0.0 % Normal 0-1 [facility] Comment on above: Performed By: #### L 100.0100, L500.2500 ####[facility] [address] [place], [address] Eosinophils/100 WBC (Bld) 0.0 % Normal 0-5 [facility] Comment on above: Performed By: #### L 100.0100, L500.2500 ####[facility] [address] [place], [address] Erythrocyte distribution width (RBC) [Ratio] 13.4 % Normal 11.6-14.6 [facility] Comment on above: Performed By: #### L 100.0100, L500.2500 ####[facility] [address] [place], [address] Hematocrit (Bld) [Volume fraction] 37.4 % Normal 37-47 [facility] Comment on above: Performed By: #### L 100.0100, L500.2500 ####[facility] [address] [place], [address] Hemoglobin (Bld) [Mass/Vol] 12.0 g/dL Normal 12.0-15.0 [facility] Comment on above: Performed By: #### L 100.0100, L500.2500 ####[facility] [address] [place], [address] IG% 0.400 Normal 0.0-0.9 [facility] Comment on above: Result Comment: IG% - Immature Granulocytes (promyelocytes, myelocytes and metamyelocytes) > 1% indicates that a LEFT SHIFT is Present. Performed By: #### L 100.0100, L500.2500 ####[facility] [address] [place], [address] Lymphocytes/100 WBC (Bld) 8.8 % Low 19-41 [facility] Comment on above: Performed By: #### L 100.0100, L500.2500 ####[facility] [address] [place], [address] MCH (RBC) [Entitic mass] 26.5 pg Low 27.0-32.0 [facility] Comment on above: Performed By: #### L 100.0100, L500.2500 ####[facility] [address] [place], [address] MCHC (RBC) [Mass/Vol] 32.1 g/dL Normal 32-36 [facility] Comment on above: Performed By: #### L 100.0100, L500.2500 ####[facility] [address] [place], [address] MCV (RBC) [Entitic vol] 82.7 fL Normal 81-[address] [facility] Comment on above: Performed By: #### L 100.0100, L500.2500 ####[facility] [address] [place], [address] Monocytes/100 WBC (Bld) 2.7 % Normal 0-[address] [facility] Comment on above: Performed By: #### L 100.0100, L500.2500 ####[facility] [address] [place], [address] Neutrophils/100 WBC (Bld) 88.1 % High 47-70 [facility] Comment on above: Performed By: #### L 100.0100, L500.2500 ####[facility] [address] [place], [address] Nucleated RBC (Bld) [#/Vol] 0 10*3/uL Normal 0-5 [facility] Comment on above: Performed By: #### L 100.0100, L500.2500 ####[facility] [address] [place], [address] Platelet mean volume (Bld) [Entitic vol] 9.9 fL Normal 6.2-12.0 [facility] Comment on above: Performed By: #### L 100.0100, L500.2500 ####[facility] [address] [place], [address] Platelets (Bld) [#/Vol] 210 10*3/uL Normal 150-450 [facility] Comment on above: Performed By: #### L 100.0100, L500.2500 ####[facility] [address] [place], [address] RBC (Bld) [#/Vol] 4.52 10*6/uL Normal 4.2-5.4 [facility] Comment on above: Performed By: #### L 100.0100, L500.2500 ####[facility] [address] [place], [address] RDW SD 40.3 fl Normal 35.1-43.9 [facility] Comment on above: Performed By: #### L 100.0100, L500.2500 ####[facility] [address] [place], [address] WBC (Bld) [#/Vol] 6.9 10*3/uL Normal 4.4-11.[address] [facility] Comment on above: Performed By: #### L 100.0100, L500.2500 ####[facility] [address] [place], [address] Determination of erythrocyte mean corpuscular volume (MCV)Ordered By: Jan Bolanos on 07-21-2023 MCV (RBC) [Entitic vol] 82.7 fL 81-[address] [facility] Erythrocyte distribution wid th ratioOrdered By: Jan Bolanos on 07-21-2023 Erythrocyte distribution width (RBC) [Ratio] 13.4 % 11.6-14.6 [facility] Erythrocyte distribution wid th standard deviationOrdered By: Jan Bolanos on 07-21-2023 Erythrocyte distribution width (RBC) [Entitic vol] 40.3 fL 35.1-43.[address] [facility] Gram Stainon 07-21-2023 GS Acceptable Specimen? Yes (<25 Epithelial cells per/lpf) Gram Stain Rare White Blood Cells 2+ Gram positive diplococci Normal [facility] Comment on above: Performed By: #### M 100.2400, M100.2000 ####[facility] [address], [address] Gram stain for investigation of transfusion reactionOrdered By: Jan Bolanos on 07-21-2023 Microscopic observation Gram stain Nom (Unsp spec) [facility] Hematocrit Auto (Bld) [Volum e fraction]Ordered By: Jan Bolanos on 07-21-2023 Hematocrit (Bld) [Volume fraction] 37.4 % 37-47 [facility] Immature granulocytes/100 WB C Auto (Bld)Ordered By: Jan Bolanos on 07-21-2023 Immature granulocytes/100 WBC (Bld) 0.400 % 0.0-0.9 [facility] Comment on above: IG% - Immature Granu locytes (promyelocytes, myelocytes and metamyelocytes) > 1% indicates that a LEFT SHIFT is Present. Laboratory - Chemistry and C hemistry - challengeOrdered By: Jan Bolanos on 07-21-2023 CO2 [Moles/Vol] 30.0 mmol/L 21.0-32.0 [facility] Urea nitrogen/Creatinine [Mass ratio] 27.8 mg/mg 10-20 [facility] Laboratory - Hematology and Cell countsOrdered By: Jan Bolanos on 07-21-2023 MCH (RBC) [Entitic mass] 26.5 pg 27.0-32.0 [facility] MCHC (RBC) [Mass/Vol] 32.1 g/dL 32-36 [facility] Nucleated RBC/100 WBC (Bld) [Ratio] 0 % 0-5 [facility] Platelet mean volume (Bld) [Entitic vol] 9.9 fL 6.2-12.0 [facility] Platelets (Bld) [#/Vol] 210 10*3/uL 150-450 [facility] No Panel InformationOrdered By: Jan Bolanos on 07-21-2023 Estimated Creatinine Clearance Calc 64.83 ml/min [facility] Estimated GFR (MDRD) Amer 170 mL/min >60 [facility] Comment on above: GFR Calc Estimated GFR (MDRD) Non-Af Amer 141 mL/min >60 [facility] Comment on above: Non- GFR Calc RBC Auto (Bld) [#/Vol]Ordere d By: Jan Bolanos on 07-21-2023 RBC (Bld) [#/Vol] 4.52 10*6/uL 4.2-5.4 [facility] Serum or plasma calcium kadi urement (mass/volume)Ordered By: Jan Bolanos on 07-21-2023 Calcium [Mass/Vol] 8.6 mg/dL 8.5-10.[address] [facility] Serum or plasma creatinine m easurement (mass/volume)Ordered By: Jan Bolanos on 07-21-2023 Creatinine [Mass/Vol] 0.47 mg/dL 0.55-1.02 [facility] Comment on above: The validity of the calculated GFR & GFRAA in patients over 70 years has not been determined. Clinical correlation is essential. Serum or plasma urea nitroge n measurement (mass/volume)Ordered By: Jan Bolanos on 07-21-2023 Urea nitrogen [Mass/Vol] 13 mg/dL 7-18 [facility] Thin prep Papanicolaou smear with manual screeningOrdered By: Jan Bolanos on 07-21-2023 Thin prep Papanicolaou smear with manual screening 3 5-15 [facility] 12 Lead EKGon 07-20-2023 12 Lead EKG [facility] Cardiovascular Services [address] [place] [address] 12 Lead EKG 07/20/23 0304 MR#: [id number] Acct: [id number] Name: DENIA GONZALEZ Rep #: [id number] : 1955 68 From: Junito Madrid MD [...] enlargement Borderline ECG Confirmed by Junito Madrid ([id number]), food editor CLARISSE RAMIREZ ([id number]) on 07/20/2023 1:47:04 PM Referred By: Confirmed By:Junito Madrid 07/20/23 1347 Date Junito Madrid MD CC: Dr. Dallas Mena MD; Dr. Yoseph Fall MD; Dr. Jan Bolanos MD Signed Normal [facility] Absolute lymphocyte countOrd ered By: Dallas Mena on 07-20-2023 Lymphocytes Auto (Unsp spec) [#/Vol] 2.11 10*3/uL 0.83-4.51 [facility] Automated blood erythrocyte count (number/volume)Ordered By: Dallas Mena on 07-20-2023 RBC (Bld) [#/Vol] 5.34 10*6/uL Normal 4.2-5.4 [facility] Comment on above: Performed By: #### L 500.2500, L100.0100 #### [facility] [address] [place], [address] Automated blood hematocrit ( percentage)Ordered By: Dallas Mena on 07-20-2023 Hematocrit (Bld) [Volume fraction] 44.2 % Normal 37-47 [facility] Comment on above: Performed By: #### L 500.2500, L100.0100 #### [facility] [address] [place], [address] Automated lymphocyte count a s percentage of total leukocytesOrdered By: Dallas Mena on 07-20-2023 Lymphocytes/100 WBC Auto (Unsp spec) 23.7 % 19-41 [facility] Basic Metabolic Profile (BMP )on 07-20-2023 BUN/CRE 18.7 RATIO Normal 10-20 [facility] Comment on above: Performed By: #### L 500.2500, L100.0100 #### [facility] [address] [place], [address] CA,Total 8.8 mg/dL Normal 8.5-10.1 [facility] Comment on above: Performed By: #### L 500.2500, L100.0100 #### [facility] [address] [place], [address] ECRCL 65.47 ml/min Normal [facility] Comment on above: Performed By: #### L 500.2500, L100.0100 #### [facility] [address] [place], [address] EST GFR - AA 108 mL/min Normal >60 [facility] Comment on above: Result Comment: Afri can Albanian GFR Calc Performed By: #### L 500.2500, L100.0100 #### [facility] [address] [place], [address] GAP 5 Normal 5-15 [facility] Comment on above: Performed By: #### L 500.2500, L100.0100 #### [facility] [address] [place], [address] GFR/1.73 sq M.predicted among non-blacks MDRD (S/P/Bld) [Vol rate/Area] 89 mL/min/{1.73_m2} Normal >60 [facility] Comment on above: Result Comment: Non- GFR Calc Performed By: #### L 500.2500, L100.0100 #### [facility] [address] [place], [address] Basic Metabolic Profile (BMP )Ordered By: Dallas Mena on 07-20-2023 CO2 [Moles/Vol] 33.0 mmol/L High 21.0-32.0 [facility] Comment on above: Performed By: #### L 500.2500, L100.0100 #### [facility] [address] [place], [address] Basophil percentageOrdered B y: Dallas Mena on 07-20-2023 Potassium [Moles/Vol] 3.8 mmol/L Normal 3.5-5.1 [facility] Comment on above: Performed By: #### L 501.2300, L501.5200, L500.4050, L501.9520, L100.0100 #### [facility] [address] [place], [address] Performed By: #### L 500.2500, L100.0100 #### [facility] [address] [place], [address] Chloride [Moles/Vol] 101 mmol/L Normal 98-107 [facility] Comment on above: Performed By: #### L 500.2500, L100.0100 #### [facility] [address] [place], [address] Glucose [Mass/Vol] 129 mg/dL High 74-[address] [facility] Comment on above: Fasting Glucose resu lt greater than or equal to 126 mg/dL suggests DIABETES MELLITUS per A.D.A. criteria. Result Comment: Fast ing Glucose result greater than or equal to 126 mg/dL suggests DIABETES MELLITUS per A.D.A. criteria. Performed By: #### L 500.2500, L100.0100 #### [facility] [address] [place], [address] Sodium [Moles/Vol] 139 mmol/L Normal 136-[address] [facility] Comment on above: Performed By: #### L 500.2500, L100.0100 #### [facility] [address] [place], [address] Basophils/100 WBC (Bld) 0.3 % Normal 0-1 [facility] Comment on above: Performed By: #### L 500.2500, L100.0100 #### [facility] [address] [place], [address] Eosinophils/100 WBC (Bld) 0.6 % Normal 0-5 [facility] Comment on above: Performed By: #### L 500.2500, L100.0100 #### [facility] [address] [place], [address] Hemoglobin (Bld) [Mass/Vol] 14.1 g/dL Normal 12.0-15.0 [facility] Comment on above: Performed By: #### L 500.2500, L100.0100 #### [facility] [address] [place], [address] Monocytes/100 WBC (Bld) 7.6 % Normal 0-[address] [facility] Comment on above: Performed By: #### L 500.2500, L100.0100 #### [facility] [address] [place], [address] Neutrophils/100 WBC (Bld) 67.5 % Normal 47-70 [facility] Comment on above: Performed By: #### L 500.2500, L100.0100 #### [facility] [address] [place], [address] WBC (Bld) [#/Vol] 8.9 10*3/uL Normal 4.4-11.[address] [facility] Comment on above: Performed By: #### L 500.2500, L100.0100 #### [facility] [address] [place], [address] Neutrophils (Bld) [#/Vol] 6.0 10*3/uL 2.0-7.7 [facility] Basophil percentageOrdered B y: José Smith on 07-20-2023 Basophil percentage 2.4 mg/dL 2.5-4.9 [facility] Bilirubin [Mass/Vol] 0.40 mg/dL 0.20-1.00 [facility] Comment on above: For patients on eltr ombopag therapy, use of Dimension [place] TBIL is not recommended. Protein [Mass/Vol] 7.4 g/dL 6.4-8.[address] [facility] CBC W/Diff, Automatedon 06-25 Absolute Lymph 0.31 X10 3/uL Low 0.83-4.51 [facility] Comment on above: Performed By: #### L 501.2300, L501.5200, L500.4050, L501.9520, L100.0100 #### [facility] [address] [place], [address] Absolute Neut 8.3 X10 3/uL High 2.0-7.7 [facility] Comment on above: Performed By: #### L 501.2300, L501.5200, L500.4050, L501.9520, L100.0100 #### [facility] [address] [place], [address] Basophils/100 WBC (Bld) 0.1 % Normal 0-1 [facility] Comment on above: Performed By: #### L 501.2300, L501.5200, L500.4050, L501.9520, L100.0100 #### [facility] [address] [place], [address] Eosinophils/100 WBC (Bld) 0.0 % Normal 0-5 [facility] Comment on above: Performed By: #### L 501.2300, L501.5200, L500.4050, L501.9520, L100.0100 #### [facility] [address] [place], [address] Erythrocyte distribution width (RBC) [Ratio] 13.5 % Normal 11.6-14.6 [facility] Comment on above: Performed By: #### L 501.2300, L501.5200, L500.4050, L501.9520, L100.0100 #### [facility] [address] [place], [address] Hematocrit (Bld) [Volume fraction] 41.4 % Normal 37-47 [facility] Comment on above: Performed By: #### L 501.2300, L501.5200, L500.4050, L501.9520, L100.0100 #### [facility] [address] [place], [address] Hemoglobin (Bld) [Mass/Vol] 13.3 g/dL Normal 12.0-15.0 [facility] Comment on above: Performed By: #### L 501.2300, L501.5200, L500.4050, L501.9520, L100.0100 #### [facility] [address] [place], [address] IG% 0.300 Normal 0.0-0.9 [facility] Comment on above: Result Comment: IG% - Immature Granulocytes (promyelocytes, myelocytes and metamyelocytes) > 1% indicates that a LEFT SHIFT is Present. Performed By: #### L 501.2300, L501.5200, L500.4050, L501.9520, L100.0100 #### [facility] [address] [place], [address] Lymphocytes/100 WBC (Bld) 3.5 % Low 19-41 [facility] Comment on above: Performed By: #### L 501.2300, L501.5200, L500.4050, L501.9520, L100.0100 #### [facility] [address] [place], [address] MCH (RBC) [Entitic mass] 26.7 pg Low 27.0-32.0 [facility] Comment on above: Performed By: #### L 501.2300, L501.5200, L500.4050, L501.9520, L100.0100 #### [facility] [address] [place], [address] MCHC (RBC) [Mass/Vol] 32.1 g/dL Normal 32-36 [facility] Comment on above: Performed By: #### L 501.2300, L501.5200, L500.4050, L501.9520, L100.0100 #### [facility] [address] [place], [address] MCV (RBC) [Entitic vol] 83.0 fL Normal 81-[address] [facility] Comment on above: Performed By: #### L 501.2300, L501.5200, L500.4050, L501.9520, L100.0100 #### [facility] [address] [place], [address] Monocytes/100 WBC (Bld) 1.1 % Normal 0-[address] [facility] Comment on above: Performed By: #### L 501.2300, L501.5200, L500.4050, L501.9520, L100.0100 #### [facility] [address] [place], [address] Neutrophils/100 WBC (Bld) 95.0 % High 47-70 [facility] Comment on above: Performed By: #### L 501.2300, L501.5200, L500.4050, L501.9520, L100.0100 #### [facility] [address] [place], [address] Nucleated RBC (Bld) [#/Vol] 0 10*3/uL Normal 0-5 [facility] Comment on above: Performed By: #### L 501.2300, L501.5200, L500.4050, L501.9520, L100.0100 #### [facility] [address] [place], [address] Platelet mean volume (Bld) [Entitic vol] 10.0 fL Normal 6.2-12.0 [facility] Comment on above: Performed By: #### L 501.2300, L501.5200, L500.4050, L501.9520, L100.0100 #### [facility] [address] [place], [address] Platelets (Bld) [#/Vol] 203 10*3/uL Normal 150-450 [facility] Comment on above: Performed By: #### L 501.2300, L501.5200, L500.4050, L501.9520, L100.0100 #### [facility] [address] [place], [address] RBC (Bld) [#/Vol] 4.99 10*6/uL Normal 4.2-5.4 [facility] Comment on above: Performed By: #### L 501.2300, L501.5200, L500.4050, L501.9520, L100.0100 #### [facility] [address] [place], [address] RDW SD 40.5 fl Normal 35.1-43.9 [facility] Comment on above: Performed By: #### L 501.2300, L501.5200, L500.4050, L501.9520, L100.0100 #### [facility] [address] [place], [address] WBC (Bld) [#/Vol] 8.7 10*3/uL Normal 4.4-11.[address] [facility] Comment on above: Performed By: #### L 501.2300, L501.5200, L500.4050, L501.9520, L100.0100 #### [facility] [address] [place], [address] Absolute Lymph 2.11 X10 3/uL Normal 0.83-4.51 [facility] Comment on above: Performed By: #### L 500.2500, L100.0100 #### [facility] [address] [place], [address] Absolute Neut 6.0 X10 3/uL Normal 2.0-7.7 [facility] Comment on above: Performed By: #### L 500.2500, L100.0100 #### [facility] [address] [place], [address] IG% 0.300 Normal 0.0-0.9 [facility] Comment on above: Result Comment: IG% - Immature Granulocytes (promyelocytes, myelocytes and metamyelocytes) > 1% indicates that a LEFT SHIFT is Present. Performed By: #### L 500.2500, L100.0100 #### [facility] [address] [place], [address] Lymphocytes/100 WBC (Bld) 23.7 % Normal 19-41 [facility] Comment on above: Performed By: #### L 500.2500, L100.0100 #### [facility] [address] [place], [address] Nucleated RBC (Bld) [#/Vol] 0 10*3/uL Normal 0-5 [facility] Comment on above: Performed By: #### L 500.2500, L100.0100 #### [facility] [address] [place], [address] RDW SD 41.0 fl Normal 35.1-43.9 [facility] Comment on above: Performed By: #### L 500.2500, L100.0100 #### [facility] [address] [place], [address] CBC W/Diff, AutomatedOrdered By: Dallas Mena on 07-20-2023 MCH (RBC) [Entitic mass] 26.4 pg Low 27.0-32.0 [facility] Comment on above: Performed By: #### L 500.2500, L100.0100 #### [facility] [address] [place], [address] MCHC (RBC) [Mass/Vol] 31.9 g/dL Low 32-36 [facility] Comment on above: Performed By: #### L 500.2500, L100.0100 #### [facility] [address] [place], [address] Platelet mean volume (Bld) [Entitic vol] 9.9 fL Normal 6.2-12.0 [facility] Comment on above: Performed By: #### L 500.2500, L100.0100 #### [facility] [address] [place], [address] Platelets (Bld) [#/Vol] 233 10*3/uL Normal 150-450 [facility] Comment on above: Performed By: #### L 500.2500, L100.0100 #### [facility] [address] [place], [address] Chest 1 View (Portable)on Chest 1 View (Portable) [facility] Imaging Services [address] [place] [address] Chest 1 View (Portable) MR#: [id number] Acct: [id number] Name: DENIA GONZALEZ Rep #: [id number] : 1955 F 68 From: Demetrius Rodgers MD PCP: Dr. Yoseph Fall MD Status: ADM IN Study: Chest 1 View (Portable) Date of Exam: 07/20/23 Exam# [id number] Ordering Dr: Dallas Mena MD [id number] INDICATION: dyspnea EXAMINATION/TECHNIQU E: X-RAY - XR [...] 4:48 EDT Reading Location ID and State: [facility] / [place] Tel , Service support , CC: Dr. Dallas Mena MD; Dr. Yoseph Fall MD Material Attendant: Signed Normal [facility] Comprehensive Metabolic Prof ilon 07-20-2023 Albumin [Mass/Vol] 3.4 g/dL Normal 3.2-5.[address] [facility] Comment on above: Performed By: #### L 501.2300, L501.5200, L500.4050, L501.9520, L100.0100 #### [facility] [address] [place], [address] Albumin/Globulin [Mass ratio] 0.8 {ratio} Low 0.9-2.4 [facility] Comment on above: Performed By: #### L 501.2300, L501.5200, L500.4050, L501.9520, L100.0100 #### [facility] [address] [place], [address] ALK P 72 U/L Normal 45-117 [facility] Comment on above: Performed By: #### L 501.2300, L501.5200, L500.4050, L501.9520, L100.0100 #### [facility] [address] [place], [address] ALT [Catalytic activity/Vol] 15 U/L Normal 13-56 [facility] Comment on above: Performed By: #### L 501.2300, L501.5200, L500.4050, L501.9520, L100.0100 #### [facility] [address] [place], [address] AST [Catalytic activity/Vol] 13 U/L Low 15-37 [facility] Comment on above: Performed By: #### L 501.2300, L501.5200, L500.4050, L501.9520, L100.0100 #### [facility] [address] [place], [address] Bilirubin [Mass/Vol] 0.40 mg/dL Normal 0.20-1.00 [facility] Comment on above: Result Comment: For patients on eltrombopag therapy, use of Dimension [place] TBIL is not recommended. Performed By: #### L 501.2300, L501.5200, L500.4050, L501.9520, L100.0100 #### [facility] [address] [place], [address] BUN/CRE 23.6 RATIO High 10-20 [facility] Comment on above: Performed By: #### L 501.2300, L501.5200, L500.4050, L501.9520, L100.0100 #### [facility] [address] [place], [address] CA,Total 8.8 mg/dL Normal 8.5-10.1 [facility] Comment on above: Performed By: #### L 501.2300, L501.5200, L500.4050, L501.9520, L100.0100 #### [facility] [address] [place], [address] Chloride [Moles/Vol] 103 mmol/L Normal 98-107 [facility] Comment on above: Performed By: #### L 501.2300, L501.5200, L500.4050, L501.9520, L100.0100 #### [facility] [address] [place], [address] CO2 [Moles/Vol] 30.0 mmol/L Normal 21.0-32.0 [facility] Comment on above: Performed By: #### L 501.2300, L501.5200, L500.4050, L501.9520, L100.0100 #### [facility] [address] [place], [address] Creatinine [Mass/Vol] 0.64 mg/dL Normal 0.55-1.02 [facility] Comment on above: Result Comment: The validity of the calculated GFR GFRAA in patients over 70 years has not been determined. Clinical correlation is essential. Performed By: #### L 501.2300, L501.5200, L500.4050, L501.9520, L100.0100 #### [facility] [address] [place], [address] ECRCL 64.88 ml/min Normal [facility] Comment on above: Performed By: #### L 501.2300, L501.5200, L500.4050, L501.9520, L100.0100 #### [facility] [address] [place], [address] EST GFR - AA 120 mL/min Normal >60 [facility] Comment on above: Result Comment: Afri can Albanian GFR Calc Performed By: #### L 501.2300, L501.5200, L500.4050, L501.9520, L100.0100 #### [facility] [address] [place], [address] GAP 7 Normal 5-15 [facility] Comment on above: Performed By: #### L 501.2300, L501.5200, L500.4050, L501.9520, L100.0100 #### [facility] [address] [place], [address] GFR/1.73 sq M.predicted among non-blacks MDRD (S/P/Bld) [Vol rate/Area] 99 mL/min/{1.73_m2} Normal >60 [facility] Comment on above: Result Comment: Non- GFR Calc Performed By: #### L 501.2300, L501.5200, L500.4050, L501.9520, L100.0100 #### [facility] [address] [place], [address] Globulin (S) [Mass/Vol] 4.0 g/dL Normal 2.2-4.[address] [facility] Comment on above: Performed By: #### L 501.2300, L501.5200, L500.4050, L501.9520, L100.0100 #### [facility] [address] [place], [address] Glucose [Mass/Vol] 125 mg/dL High 74-[address] [facility] Comment on above: Result Comment: Fast ing Glucose result from 100 to 125 mg/dL suggests IMPAIRED HOMEOSTASIS per A.D.A. criteria. Performed By: #### L 501.2300, L501.5200, L500.4050, L501.9520, L100.0100 #### [facility] [address] [place], [address] Sodium [Moles/Vol] 140 mmol/L Normal 136-[address] [facility] Comment on above: Performed By: #### L 501.2300, L501.5200, L500.4050, L501.9520, L100.0100 #### [facility] [address] [place], [address] T PROT 7.4 g/dL Normal 6.4-8.2 [facility] Comment on above: Performed By: #### L 501.2300, L501.5200, L500.4050, L501.9520, L100.0100 #### [facility] [address] [place], [address] Urea nitrogen [Mass/Vol] 15 mg/dL Normal 7-18 [facility] Comment on above: Performed By: #### L 501.2300, L501.5200, L500.4050, L501.9520, L100.0100 #### [facility] [address] [place], [address] Determination of erythrocyte mean corpuscular volume (MCV)Ordered By: Dallas Mena on 07-20-2023 MCV (RBC) [Entitic vol] 82.8 fL Normal 81-99 [facility] Comment on above: Performed By: #### L 500.2500, L100.0100 #### [facility] [address] [place], [address] Emergency Department Summary on 07-20-2023 Emergency Department Summary [facility] Medical Records Department [address] [place] [address] Emergency Department Summary 07/20/23 MR#: [id number] Acct: [id number] Name: DENIA GONZALEZ Rep #: [id number] : 1955 68 From: Dallas Mena MD PCP: Dr. Yoseph Fall MD Status:ADM IN Location: [place] [address]-1 HPI History of Present Illness Chief Complaint: [...] expiratory pha (more content not included)... Normal [facility] Erythrocyte distribution wid th ratioOrdered By: Dalals Mena on 07-20-2023 Erythrocyte distribution width (RBC) [Ratio] 13.6 % Normal 11.6-14.6 [facility] Comment on above: Performed By: #### L 500.2500, L100.0100 #### [facility] [address] [place], [address] Erythrocyte distribution wid th standard deviationOrdered By: Dallas Mena on 07-20-2023 Erythrocyte distribution width (RBC) [Entitic vol] 41.0 fL 35.1-43.[address] [facility] H AND P Exam - Hospitaliston 07-20-2023 H&P Exam - Hospitalist [facility] Medical Records Department [address] [place] [address] H P Exam - Hospitalist 07/20/23 0406 MR#: [id number] Acct: [id number] Name: DENIA GONZALEZ Rep #: [id number] : 1955 68 From: José Cunningham DO PCP: Dr. Yoseph Fall MD Status:ADM IN [facility] HPI - General General Date of Admission: [...] anxiety, GERD and OA who presents to [facility] ER complaining of shortness of breath, wheezing [...] exacerbation of COPD with clinical evidence of [id number] hypoxic respiratory insufficiency likely due to recent v iral URI in the setting of ongoing tobacco abuse and she was then admitted to the [facility] for ongoing care for stay that is expected to be greater than 48 hours. [facility] Home Medications albuterol sulfate 90 mcg/actuation aerosol [...] bruising Skin (more content not included)... Normal [facility] Immature granulocytes/100 WB C Auto (Bld)Ordered By: Dallas Mena on 07-20-2023 Immature granulocytes/100 WBC (Bld) 0.300 % 0.0-0.9 [facility] Comment on above: IG% - Immature Granu locytes (promyelocytes, myelocytes and metamyelocytes) > 1% indicates that a LEFT SHIFT is Present. Laboratory - Chemistry and C hemistry - challengeOrdered By: José Smith on 07-20-2023 Albumin/Globulin [Mass ratio] 0.8 {ratio} 0.9-2.4 [facility] ALP [Catalytic activity/Vol] 72 U/L 45-117 [facility] ALT [Catalytic activity/Vol] 15 U/L 13-56 [facility] Globulin (S) [Mass/Vol] 4.0 g/dL 2.2-4.2 [facility] Magnesium [Mass/Vol] 2.1 mg/dL 1.6-2.6 [facility] - Chemistry and C hemistry - challengeOrdered By: Dallas Mena on 07-20-2023 Urea nitrogen/Creatinine [Mass ratio] 18.7 mg/mg 10-20 [facility] - Hematology and Cell countsOrdered By: Dallas Mena on 07-20-2023 Nucleated RBC/100 WBC (Bld) [Ratio] 0 % 0-5 [facility] - Microbiology an d Antimicrobial susceptibilityOrdered By: Dallas Mena on 07-20-2023 SARS-CoV-2 (COVID-19) RNA ASPEN+probe Ql (Unsp spec) [facility] M100.678on 07-20-2023 M100.678 SARS-CoV-2 (COVID 19) Negative INFLUENZA A Negative INFLUENZA B Negative RSV PCR Negative Normal [facility] Comment on above: Performed By: #### M 100.678 ####[facility] [address] [place], [address] Magnesiumon 07-20-2023 Magnesium [Mass/Vol] 2.1 mg/dL Normal 1.6-2.6 [facility] Comment on above: Performed By: #### L 501.2300, L501.5200, L500.4050, L501.9520, L100.0100 #### [facility] [address] [place], [address] No Panel InformationOrdered By: Dallas Mena on 07-20-2023 Estimated Creatinine Clearance Calc 65.47 ml/min [facility] Estimated GFR (MDRD) Amer 108 mL/min >60 [facility] Comment on above: GFR Calc Estimated GFR (MDRD) Non-Af Amer 89 mL/min >60 [facility] Comment on above: Non- GFR Calc Phosphoruson 07-20-2023 Phosphate [Mass/Vol] 2.4 mg/dL Low 2.5-4.9 [facility] Comment on above: Performed By: #### L 501.2300, L501.5200, L500.4050, L501.9520, L100.0100 #### [facility] [address] [place], [address] Serum or plasma calcium kadi urement (mass/volume)Ordered By: Dallas Mena on 07-20-2023 Calcium [Mass/Vol] 8.8 mg/dL 8.5-10.[address] [facility] Serum or plasma creatinine m easurement (mass/volume)Ordered By: Dallas Mena on 07-20-2023 Creatinine [Mass/Vol] 0.70 mg/dL Normal 0.55-1.02 [facility] Comment on above: The validity of the calculated GFR & GFRAA in patients over 70 years has not been determined. Clinical correlation is essential. Result Comment: The validity of the calculated GFR GFRAA in patients over 70 years has not been determined. Clinical correlation is essential. Performed By: #### L 500.2500, L100.0100 #### [facility] [address] [place], [address] Serum or plasma thyroid stim ulating hormone (TSH) measurement (units/volume)Ordered By: oJsé Smith on 07-20-2023 TSH Qn 0.35 uIU/mL 0.358-3.74 [facility] Serum or plasma urea nitroge n measurement (mass/volume)Ordered By: Dallas Mena on 07-20-2023 Urea nitrogen [Mass/Vol] 13 mg/dL Normal 7-18 [facility] Comment on above: Performed By: #### L 500.2500, L100.0100 #### [facility] [address] [place], [address] Thin prep Papanicolaou smear with manual screeningOrdered By: José Smith on 07-20-2023 Thin prep Papanicolaou smear with manual screening 3.4 g/dL 3.2-5.0 [facility] Thin prep Papanicolaou smear with manual screening 13 U/L 15-37 [facility] Thin prep Papanicolaou smear with manual screeningOrdered By: Dallas Mena on 07-20-2023 Thin prep Papanicolaou smear with manual screening 5 5-15 [facility] Thyroid Stim Hormone (TSH)on 07-20-2023 TSH 0.35 uIU/mL Low 0.358-3.74 [facility] Comment on above: Performed By: #### L 501.2300, L501.5200, L500.4050, L501.9520, L100.0100 #### [facility] [address] [place], [address] FECAL OCCULT BLOOD TESTon Lower GI hemoglobin IA Ql (Stl) Negative Negative [facility] OXIMETRY WITH AMBULATIONon 1 [facility] Vital Signs Date Time Vital Sign Value Performing Clinician Ines mays 04-07-2024 08:39-0500 Body mass index (BMI) [Ratio] 29.23 kg/m2 Yoseph Fall MD Work Phone: [facility] 04-07-2024 08:39-0500 Body temperature 98.1 [degF] Yoseph Fall MD Work Phone: [facility] 04-07-2024 08:39-0500 Body weight 74.84 kg Yoseph Fall MD Work Phone: [facility] 04-07-2024 08:39-0500 Diastolic blood pressure 76 mm[Hg] Yoseph Fall MD Work Phone: [facility] Comment on above: home bp 04-07-2024 08:39-0500 Heart rate 86 /min Yoseph Fall MD Work Phone: [facility] 04-07-2024 08:39-0500 SaO2% (BldA) [Mass fraction] 93 % Yoseph Fall MD Work Phone: [facility] 04-07-2024 08:39-0500 Systolic blood pressure 141 mm[Hg] Yoseph Fall MD Work Phone: [facility] Comment on above: home bp 07-22-2023 17:49-0400 Heart rate 93 /min Dr. Yoseph Fall Work Phone: [facility] 07-22-2023 17:49-0400 Respiratory rate 18 /min Dr. Yoseph Fall Work Phone: [facility] 07-22-2023 16:37-0400 Body temperature 98.7 [degF] Dr. Yoseph Fall Work Phone: [facility] 07-22-2023 16:37-0400 Diastolic blood pressure 68 mm[Hg] Dr. Yoseph Fall Work Phone: [facility] 07-22-2023 16:37-0400 SaO2% (BldA) [Mass fraction] 96 % Dr. Yoseph Fall Work Phone: [facility] 07-22-2023 16:37-0400 Systolic blood pressure 146 mm[Hg] Dr. Yoseph Fall Work Phone: [facility] 07-22-2023 11:00-0400 Inhaled oxygen flow rate 2.5 L/min Dr. Yoseph Fall Work Phone: [facility] 07-22-2023 06:00-0400 Body mass index (BMI) [Ratio] 26.5 kg/m2 Dr. Yoseph Fall Work Phone: [facility] 07-22-2023 06:00-0400 Body weight 70.[address] Yoseph Fall Work Phone: [facility] 07-20-2023 05:02-0400 Body height 162.56 cm [facility] 07-20-2023 05:02-0400 Body mass index (BMI) [Ratio] 26.6 kg/m2 [facility] 07-20-2023 05:02-0400 Body weight 70.6 kg [facility] 07-20-2023 05:00-0400 Body temperature 98.9 [degF] [facility] 07-20-2023 05:00-0400 Diastolic blood pressure 72 mm[Hg] [facility] 07-20-2023 05:00-0400 Heart rate 124 /min [facility] 07-20-2023 05:00-0400 Inhaled oxygen flow rate 3.5 L/min [facility] 07-20-2023 05:00-0400 Respiratory rate 24 /min [facility] 07-20-2023 05:00-0400 SaO2% (BldA) [Mass fraction] 93 % [facility] 07-20-2023 05:00-0400 Systolic blood pressure 124 mm[Hg] [facility] 02-19-2023 14:12-0400 Body weight 73.48 kg Yoseph Fall MD Work Phone: [facility] 02-19-2023 14:12-0400 Diastolic blood pressure 78 mm[Hg] Yoseph Fall MD Work Phone: [facility] 02-19-2023 14:12-0400 Heart rate 100 /min Yoseph Fall MD Work Phone: [facility] 02-19-2023 14:12-0400 Respiratory rate 20 /min Yoseph Fall MD Work Phone: [facility] 02-19-2023 14:12-0400 SaO2% (BldA) [Mass fraction] 96 % Yoseph Fall MD Work Phone: [facility] 02-19-2023 14:12-0400 Systolic blood pressure 130 mm[Hg] Yoseph Fall MD Work Phone: [facility] 05-01-2022 14:41-0500 Body weight 78.47 kg Yoseph Fall MD Work Phone: [facility] 05-01-2022 14:41-0500 Diastolic blood pressure 81 mm[Hg] Yoseph Fall MD Work Phone: [facility] 05-01-2022 14:41-0500 Heart rate 105 /min Yoseph Fall MD Work Phone: [facility] 05-01-2022 14:41-0500 Systolic blood pressure 132 mm[Hg] Yoseph Fall MD Work Phone: [facility] 02-20-2022 13:22-0400 Body weight 77.56 kg Respiratory Wstr Work Phone: [facility] 02-20-2022 13:22-0400 Heart rate 108 /min Respiratory Wstr Work Phone: [facility] 02-20-2022 13:22-0400 Respiratory rate 16 /min Respiratory Wstr Work Phone: [facility] 02-20-2022 13:22-0400 SaO2% (BldA) [Mass fraction] 93 % Respiratory Wstr Work Phone: [facility] Encounters Encounter Date Encounter Type Care Provider Facility Start: 08-29-2024 End: 08-29-2024 Refill Yoseph Fall MD Work Phone: [address] [place] [address] Comment on above: Refill Request Start: 08-15-2024 [...] Yoseph Fall MD Work Phone: [facility] Comment on above: Refill Request Start: 06-19-2024 End: 06-19-2024 Refill Yoseph Fall MD Work Phone: [facility] Comment on above: Refill Request Start: 06-12-2024 End: 06-12-2024 Telephone encounter Yoseph Fall MD Work Phone: [facility] Comment on above: Forms ([employer]) Start: 06-02-2024 End: 06-07-2024 Telephone encounter Yoseph Fall MD Work Phone: [facility] Comment on above: Insurance Authorizat ion Start: 06-01-2024 End: 06-01-2024 Refill Yoseph Fall MD Work Phone: [facility] Comment on above: Refill Request; Medi cation [...] [place] Comment on above: Chronic low back geoffrey n with sciatica, sciatica laterality unspecified, unspecified back pain laterality (Primary Dx); Essential hypertension, benign; Generalized anxiety disorder; Depression, unspecified depression type; Gastroesophageal reflux disease without esophagitis Start: 03-21-2024 End: 03-22-2024 Telephone encounter Yoseph Fall MD Work Phone: [facility] [place] Comment on above: Patient Question Start: 03-20-2024 End: 03-20-2024 Refill Yoseph Fall MD Work Phone: [facility] [place] Comment on above: Refill Request Start: 03-03-2024 End: 03-03-2024 Refill Yoseph Fall MD Work Phone: [facility] [place] Comment on above: Refill Request Start: 02-14-2024 End: 02-14-2024 Refill Yoseph Fall MD Work Phone: [facility] [place] Comment on above: Refill Request Start: 02-03-2024 End: 02-04-2024 Telephone encounter Yoseph Fall MD Work Phone: [facility] [place] Comment on above: Patient Question Start: 01-18-2024 End: 01-18-2024 Refill Yoseph Fall MD Work Phone: [facility] [place] Comment on above: Refill Request Start: 12-24-2023 End: 12-24-2023 Refill Yoseph Fall MD Work Phone: [facility] [place] Comment on above: Refill Request Start: 11-29-2023 End: 11-29-2023 Distance [facility] Yoseph Fall MD Work Phone: [facility] [place] Comment on above: Stage 3 severe COPD by GOLD classification (HCC) (Primary Dx); Generalized osteoarthrosis, involving multiple sites; Chronic low back pain with sciatica, sciatica laterality unspecified, unspecified back pain laterality; Essential hypertension, benign; Tobacco use disorder; Dysthymic disorder Start: 11-16-2023 Refill Yoseph emmanuel MD Work Phone: [facility] [place] Comment on above: Refill Request Start: 11-08-2023 Telephone encounter Yoseph lei MD Work Phone: [facility] [place] Comment on above: Insurance Authorizat ion Start: 11-05-2023 Refill Yoseph emmanuel MD Work Phone: [facility] [place] Comment on above: Refill Request Start: 10-22-2023 Telephone encounter Yoseph lei MD Work Phone: [address] [place] [address] Comment on above: Medication Request ( Requesting antibiotic) Start: 10-18-2023 Refill Yoseph emmanuel MD Work Phone: [facility] [place] Comment on above: Refill Request Start: 10-18-2023 End: 10-18-2023 Emergency department patient visit [facility] Facility:[facility] Start: 10-01-2023 Telephone encounter Yoseph lei MD Work Phone: [facility] Comment on above: Medication Problem Start: 09-22-2023 Refill Yoseph emmanuel MD Work Phone: [facility] Comment on above: Refill Request Start: 09-15-2023 Refill Yoseph emmanuel MD Work Phone: [facility] Comment on above: Refill Request Start: 08-23-2023 End: 08-23-2023 Distance [facility] Yoseph Fall MD Work Phone: [facility] Comment on above: Stage 3 severe COPD by GOLD classification (HCC) (Primary Dx); Essential hypertension, benign; Cigarette smoker; Generalized anxiety disorder; Chronic low back pain with sciatica, sciatica laterality unspecified, unspecified back pain laterality Start: 07-27-2023 Refill Yoseph emmanuel MD Work Phone: [facility] Comment on above: Refill Request Start: 07-26-2023 End: 07-26-2023 Patient Outreach Yoseph Fall MD Work Phone: [facility] Comment on above: Transition Of Care Obstructive chronic bronchitis with exacerbation (HCC) (Primary Dx); Stage 3 severe COPD by GOLD classification (HCC); Cigarette smoker; Chronic respiratory failure with hypoxia (HCC) Start: 07-22-2023 Non-patient / Non-visit Dr. Jos Fall Work Phone: [facility] Work Phone: Start: 07-21-2023 Non-patient / Non-visit Dr. Jos Fall Work Phone: [facility] Work Phone: Start: 07-20-2023 ambulatory Yoseph Wardalec Facilit y:[facility] Start: 07-20-2023 End: 07-22-2023 Evaluation and management of inpatient [facility] Work Phone: Start: 07-19-2023 Telephone encounter Yoseph lei MD Work Phone: [facility] Comment on above: Medication Request; Cough Start: 06-28-2023 Refill Yoseph emmanuel MD Work Phone: [facility] Comment on above: Med Change Request Start: 06-17-2023 Telephone encounter Yoseph lei MD Work Phone: [facility] Comment on above: Forms ([employer] re: incontinence supplies) Start: 06-16-2023 ambulatory Yoseph emmanuel MD Work Phone: [facility] [place] Start: 06-15-2023 Telephone encounter Yoseph lei MD Work Phone: [facility] [place] Comment on above: Mouth/Lip Problem Start: 06-14-2023 Telephone encounter Yoseph lei MD Work Phone: [facility] [place] Comment on above: Insurance Authorizat ion Start: 06-11-2023 Refill Yoseph emmanuel MD Work Phone: [facility] [place] Comment on above: Refill Request Start: 03-30-2023 Telephone encounter Yoseph lei MD Work Phone: [facility] [place] Start: 03-17-2023 Refill Yoseph emmanuel MD Work Phone: [facility] Comment on above: Refill Request Start: 02-19-2023 End: 02-19-2023 Patient encounter procedure Yoseph Fall MD Work Phone: [facility] Comment on above: Chronic low back geoffrey n with sciatica, sciatica laterality unspecified, unspecified back pain laterality (Primary Dx); Generalized osteoarthrosis, involving multiple sites; Generalized anxiety disorder; Depression, unspecified depression type; Essential hypertension, benign; Elevated glucose; Stage 3 severe COPD by GOLD classification ([facility]); Gastroesophageal reflux disease, unspecified whether esophagitis present; Chronic obstructive pulmonary disease, unspecified COPD type ([facility]); Uncomplicated asthma, unspecified asthma severity, unspecified whether persistent; Tobacco use disorder; Need for influenza vaccination; Encounter for medication monitoring Start: 01-15-2023 Refill Yoseph emmanuel MD Work Phone: [facility] Comment on above: Refill Request Start: 12-29-2022 Refill Yoseph emmanuel MD Work Phone: [facility] Comment on above: Refill Request Start: 12-10-2022 Telephone encounter Yoseph lei MD Work Phone: [facility] Comment on above: Orders Start: 11-06-2022 Refill Nelson BOWMAN RN.[facility] Work Phone: [facility] Comment on above: Refill Request Start: 11-05-2022 Refill Nelson BOWMAN RN.[facility] Work Phone: [facility] Comment on above: Refill Request Start: 08-21-2022 Telephone encounter Yoseph lei MD Work Phone: [facility] [place] Comment on above: Patient Request Start: 07-02-2022 Telephone encounter Yoseph lei MD Work Phone: [facility] Comment on above: Forms (Incontinence supply form) Start: 06-29-2022 Refill Yoseph emmanuel MD Work Phone: [facility] Comment on above: Refill Request Start: 06-08-2022 Refill Yoseph emmanuel MD Work Phone: [facility] [place] Comment on above: Refill Request Start: 05-15-2022 Refill Yoseph emmanuel MD Work Phone: [facility] [place] Comment on above: Refill Request Start: 05-05-2022 Refill Yoseph emmanuel MD Work Phone: [facility] [place] Comment on above: Refill Request Start: 05-01-2022 End: 05-01-2022 Distance [facility] Yoseph Fall MD Work Phone: [facility] [place] Comment on above: Stage 3 severe COPD by GOLD classification (HCC) (Primary Dx); Chronic low back pain with sciatica, sciatica laterality unspecified, unspecified back pain laterality; Chronic respiratory failure with hypoxia (HCC); Essential hypertension, benign; Generalized anxiety disorder; Tobacco use disorder Start: 04-21-2022 Refill Yoseph emmanuel MD Work Phone: [facility] [place] Comment on above: Refill Request Start: 02-27-2022 Telephone encounter Mercedez Zarate PA-C Work Phone: Pulmonary Medicine Comment on above: Orders Start: 02-20-2022 End: 02-20-2022 ambulatory Respiratory Therapist [facility] Work Phone: Pulmonary Medicine Comment on above: Spirometry Start: 02-20-2022 End: 02-20-2022 Patient encounter procedure Respiratory Therapist [facility] Work Phone: [place] [facility] Start: 01-20-2022 Refill Yoseph emmanuel MD Work Phone: [facility] [place] Comment on above: Refill Request Start: 01-13-2022 Orders Only Michelle Guzmán MD Work Phone: Pulmonary Medicine Comment on above: Chronic obstructive pulmonary disease, unspecified COPD type (HCC) (Primary Dx) Start: 01-08-2022 Telephone encounter Michelle Guzmán MD Work Phone: Pulmonary Medicine Comment on above: Orders Start: 12-18-2021 Refill Yoseph emmanuel MD Work Phone: [facility] Comment on above: Refill Request Start: 11-17-2021 Refill Yoseph emmanuel MD Work Phone: [facility] Comment on above: Refill Request Start: 10-17-2021 End: 10-17-2021 Distance [facility] Yoseph Fall MD Work Phone: [facility] [place] Comment on above: Chronic obstructive pulmonary disease, unspecified COPD type (HCC) (Primary Dx); Chronic low back pain with sciatica, sciatica laterality unspecified, unspecified back pain laterality; Essential hypertension, benign; Uncomplicated asthma, unspecified asthma severity, unspecified whether persistent; Generalized anxiety disorder Start: 09-30-2021 Refill Yoseph emmanuel MD Work Phone: [facility] Comment on above: Refill Request Start: 09-15-2021 Refill Yoseph emmanuel MD Work Phone: [facility] Comment on above: Refill Request Start: 08-27-2021 Refill Yoseph emmanuel MD Work Phone: [facility] Comment on above: Refill Request Start: 08-18-2021 Refill Yoseph emmanuel MD Work Phone: [facility] Comment on above: Refill Request Start: 08-01-2021 Orders Only Yoseph emmanuel MD Work Phone: [facility] Comment on above: Essential hypertensi on, benign [...] - S avelino or Plasma Lipid Screening [facility] Start: 02-20-2028 Lipid panel Lipid Screening [facility] Start: 02-19-2026 Diabetes Screening Diabetes Screenin g [facility] Start: 07-06-2025 Annual PCP Team [employer] Pulper yakov Disease Visit Annual PCP Team Chronic Disease Visit [facility] Start: 07-06-2025 Screening for malign ant neoplasm of breast Mammogram Screening [facility] Comment on above: Postponed from 10/16 (Declined at this time) Start: 04-07-2025 Annual PCP Team [employer] Pulper yakov Disease Visit Annual PCP Team Chronic Disease Visit [facility] Start: 12-25-2024 Influenza vaccination Influenz a Vaccine (Season Ended) [facility] Start: 11-28-2024 Annual PCP Team [employer] Pulper yakov Disease Visit Annual PCP Team Chronic Disease Visit [facility] Start: 08-22-2024 Annual PCP Team [employer] Pulper yakov Disease Visit Annual PCP Team Chronic Disease Visit [facility] Start: 07-25-2024 Annual PCP Team [employer] Pulper yakov Disease Visit Annual PCP Team Chronic Disease Visit [facility] Start: 07-12-2024 DIABETES SCREEN DIABETES SCREEN [facility] Start: 07-12-2024 Diabetes Screening Diabetes Screenin g [facility] Start: 07-06-2024 End: 07-06-2024 ambulatory 07/06/2024 2:00 PM EDT [facility] [address] [place] [address] Yoseph Fall MD [address] [facility] [place] [id number] 3 mo f/u - Phone visit Family [facility] Comment on above: 3 mo f/u - Phone vis it Start: 05-24-2024 Annual PCP Team [employer] Pulper yakov Disease Visit Annual PCP Team Chronic Disease Visit [facility] Start: 04-26-2024 Advance Directive Discussion Advance Directive Discussion [facility] Start: 04-07-2024 End: 04-07-2024 Telephone follow-up 04/07/2024 8:40 AM EST [facility] [address] [facility] [place] [id number] Yoseph Fall MD [address] [facility] [place] [phone] phone call 4 month follow up [facility] Comment on above: phone call 4 month f ollow up Start: 02-20-2024 Annual PCP Team [employer] Pulper yakov Disease Visit Annual PCP Team Chronic Disease Visit [facility] Start: 02-09-2024 Lipid 1996 panel - S avelino or Plasma Lipid Screening [facility] Start: 02-09-2024 LIPID SCREEN LIPID SCREEN [facility] Start: 01-25-2024 Colorectal Cancer Screening Colorectal Cancer Screening [facility] Start: 01-25-2024 Fecal Occult Blood Fecal Occult Bloo d [facility] Start: 01-25-2024 Screening for malign ant neoplasm of colon [facility] Start: 12-26-2023 Covid-19 Vaccine ( season) Covid-19 Vaccine ( season) [facility] Start: 12-26-2023 Influenza vaccination Influenza Vacc ine (#1) [facility] Start: 11-29-2023 End: 11-29-2023 Telephone follow-up 11/29/2023 5:40 PM EDT [facility] [place] [address] [facility] [place] [phone] Yoseph Fall MD [address] [place], [place] [phone] phone call-3 month follow up [facility] [place] Comment on above: phone call-3 month f ollow up Start: 11-23-2023 End: 11-23-2023 Telephone follow-up 11/23/2023 3:00 PM EDT [facility] [place] [address] [place] [address] Yoseph Fall MD [address] [place] [address] phone call-3 month follow up Family [facility] Comment on above: phone call-3 month f ollow up Start: 11-14-2023 ANNUAL PCP TEAM HYDROGEN TREATER YAKOV DISEASE VISIT ANNUAL PCP TEAM CHRONIC DISEASE VISIT [facility] Start: 10-25-2023 Urine microalbumin profile [facility] Start: 08-08-2023 ANNUAL PCP TEAM HYDROGEN TREATER YAKOV DISEASE VISIT ANNUAL PCP TEAM CHRONIC DISEASE VISIT [facility] Start: 07-22-2023 Patient discharge [facility] Start: 07-21-2023 Respiratory microbia l culture Respiratory Culture [facility] Start: 07-20-2023 Thyroid stimulating hormone measurement [facility] Start: 07-20-2023 [facility] Start: 07-20-2023 Following clinical p athway protocol [facility] Start: 07-20-2023 Assessment of risk o f venous thromboembolism [facility] Start: 07-20-2023 Contact precautions [facility] Start: 07-20-2023 Incentive spirometry [facility] Start: 07-20-2023 Insertion of cathete r into peripheral vein [facility] Start: 07-20-2023 Measuring intake and output [facility] Start: 07-20-2023 Oxygen therapy [facility] Start: 07-20-2023 Providing care accor ding to standard [facility] Start: 07-20-2023 Provision of activit y privileges [facility] Start: 07-20-2023 Referral to service [facility] Start: 07-20-2023 Respiratory secretio n precautions [facility] Start: 07-20-2023 Respiratory therapy [facility] Start: 07-20-2023 Tobacco use cessatio n education [facility] Start: 07-20-2023 [facility] Start: 07-20-2023 Verification routine [facility] Start: 07-20-2023 Admission procedure [facility] Start: 07-20-2023 Patient referral to dietitian [facility] Start: 05-01-2023 ANNUAL PCP TEAM HYDROGEN TREATER YAKOV DISEASE VISIT ANNUAL PCP TEAM CHRONIC DISEASE VISIT [facility] Start: 04-26-2023 Advance Directive Discussion Advance Directive Discussion [facility] Start: 02-19-2023 End: 05-21-2023 CBC W Auto Differential panel - Blood [facility] Work Phone: Comment on above: Expected: 02/19/2023 , Expires: 05/21/2023 Start: 02-19-2023 End: 05-21-2023 Comprehensive metabolic 2000 panel - Serum or Plasma [facility] Work Phone: Comment on above: Expected: 02/19/2023 (Approximate), Expires: 05/21/2023 Start: 02-19-2023 End: 05-21-2023 Hemoglobin A1c in Blood [facility] Work Phone: Comment on above: Expected: 02/19/2023 , Expires: 05/21/2023 Start: 02-19-2023 End: 05-21-2023 LIPID PANEL, NONFASTING [facility] Work Phone: Comment on above: Expected: 02/19/2023 , Expires: 05/21/2023 Start: 02-19-2023 End: 05-21-2023 PAIN PANEL, UR QUANT [facility] Work Phone: Comment on above: Expected: 02/19/2023 , Expires: 05/21/2023 Start: 02-19-2023 End: 05-21-2023 TOX SCREEN ROUT UR [facility] Work Phone: Comment on above: Expected: 02/19/2023 , Expires: 05/21/2023 Start: 01-23-2023 ANNUAL PCP TEAM HYDROGEN TREATER YAKOV DISEASE VISIT ANNUAL PCP TEAM CHRONIC DISEASE VISIT [facility] Start: 12-25-2022 Covid-19 Vaccine ( season) Covid-19 Vaccine () [facility] Start: 12-25-2022 Influenza vaccination C [facility] Start: 10-17-2022 ANNUAL PCP TEAM HYDROGEN TREATER YAKOV DISEASE VISIT ANNUAL PCP TEAM CHRONIC DISEASE VISIT [facility] Start: 08-21-2022 COVID-19 VACCINE (5 - Moderna series) COVID-19 VACCINE (5 - Moderna series) [facility] Start: 07-17-2022 ANNUAL PCP TEAM HYDROGEN TREATER YAKOV DISEASE VISIT ANNUAL PCP TEAM CHRONIC DISEASE VISIT [facility] Start: 07-17-2022 BP CONTROLLED (<130/80) BP CONTROLLE D (<130/80) [facility] Start: 04-26-2022 ADVANCE DIRECTIVE DISCUSSION ADVANCE DIRECTIVE DISCUSSION [facility] Start: 12-25-2021 Influenza vaccination C [facility] Start: 12-12-2021 COVID-19 VACCINE (4 - Booster for Moderna series) COVID-19 VACCINE (4 - Booster for Moderna series) [facility] Start: 10-06-2021 COVID-19 VACCINE (3 - Booster for Moderna series) COVID-19 VACCINE (3 - Booster for Moderna series) [facility] Start: 08-01-2021 End: 10-01-2021 LIPID PANEL BASIC LIPID PANEL BASIC Lab Routine Essential hypertension, benign Elevated glucose Expected: 08/01/2021, Expires: 10/01/2021 [facility] Work Phone: Comment on above: Expected: 08/01/2021 , Expires: 10/01/2021 Start: 07-03-2021 COVID-19 VACCINE (3 - Booster for Moderna series) COVID-19 VACCINE (3 - Booster for Moderna series) [facility] Start: 2020 BONE DENSITY BONE DENSITY [facility] Start: 2020 Bone Density Screening Bone Density Screening [facility] Start: 2020 Screening for osteoporosis Bone Dens ity Screening [facility] Start: 02-14-2020 COLORECTAL CANCER SCREENING COLORECTAL CANCER SCREENING [facility] Start: 02-14-2020 FECAL OCCULT BLOOD FECAL OCCULT BLOO D [facility] Start: 10-16-2016 Mammography [facility] Start: 10-16-2016 Screening for malign ant neoplasm of breast Mammogram Screening [facility] Start: 10-24-2015 PAP TESTING PAP TESTING [facility] Start: 10-24-2015 Screening for malign ant neoplasm of cervix [facility] Start: 2015 RSV Vaccine (1 - 1-d ose 60+ series) RSV Vaccine (1 - 1-dose 60+ series) [facility] Start: 2015 RSV Vaccine (1 - Ris k 60-74 years 1-dose series) RSV Vaccine (1 - Risk 60-74 years 1-dose series) [facility] Start: 2005 SHINGRIX VACCINE (1 of 2) HARDIN GRIX VACCINE (1 of 2) [facility] Start: 2000 COLOGUARD (FIT-DNA) COLOGUARD (FIT-D NA) [facility] Start: 2000 Colonoscopy COLONOSCOPY [facility] Start: [address] COLONOGRAPHY [facility] Start: 2000 Screening for malign ant neoplasm of colon [facility] Start: 2000 SIGMOIDOSCOPY SIGMOIDOSCOPY [facility] Start: 1985 Zoledronic acid therapy ALPHA- 1 ANTITRYPSIN DEFICIENCY SCREENING [facility] Start: 1973 BP CONTROLLED (<130/80) BP CONTROLLE D (<130/80) [facility] Alanine aminotransfe rase [Enzymatic activity/volume] in Serum or Plasma [facility] Albumin [Mass/volume ] in Serum or Plasma [facility] Alkaline phosphatase [Enzymatic activity/volume] in Serum or Plasma [facility] Anion gap measurement [facility] Aspartate aminotrans ferase [Enzymatic activity/volume] in Serum or Plasma [facility] Bilirubin, total measurement [facility] BUN/Creatinine ratio [facility] Calcium [Mass/volume ] in Serum or Plasma [facility] Carbon dioxide, tota l [Moles/volume] in Serum or Plasma [facility] Chloride [Moles/volu me] in Serum or Plasma [facility] COLOGUARD COLOGUARD Lab Ro frances Screening for colon cancer Ordered: 07/06/2024 [facility] Work Phone: Comment on above: Ordered: 07/06/2024 Creatinine [Moles/vo lume] in Serum or Plasma [facility] End: 06-15-2025 DBT Breast - bilateral screening MICKIE SCREENING W RASHAUN Radiology Routine Encounter for screening mammogram for breast cancer 1 Occurrences starting 05/16/2024 until 06/15/2025 [facility] Work Phone: Comment on above: 1 Occurrences starti ng 05/16/2024 until 06/15/2025 Erythrocyte mean corpuscular volume determination [facility] Glucose [Mass/volume ] in Serum or Plasma [facility] Hematocrit [Volume Fraction] of Blood [facility] Hemoglobin [Mass/vol ume] in Blood [facility] Leukocytes [#/volume ] in Blood [facility] Magnesium [Mass/volu me] in Serum or Plasma [facility] Mean corpuscular hemoglobin concentration determination [facility] Mean corpuscular hemoglobin determination [facility] Measurement of renal function [facility] End: 07-15-2024 MG Breast Screening MICKIE SCREENING Radiology Routine Encounter for screening mammogram for breast cancer 1 Occurrences starting 06/16/2023 until 07/15/2024 [facility] Work Phone: Comment on above: 1 Occurrences starti ng 06/16/2023 until 07/15/2024 Neutrophil count [facility] Neutrophil percent differential count [facility] End: 02-12-2023 OXIMETRY WITH AMBULATION OXIMETRY WITH AMBULATION PFT Routine Chronic obstructive pulmonary disease, unspecified COPD type (HCC) 1 Occurrences starting 01/13/2022 until 02/12/2023 [facility] Work Phone: Comment on above: 1 Occurrences starti ng 01/13/2022 until 02/12/2023 Patient referral [facility] Work Phone: Platelets [#/volume] in Blood [facility] Potassium [Moles/vol ume] in Serum or Plasma [facility] Red blood cell count [facility] Red cell distributio n width determination [facility] Serum inorganic phos phate measurement [facility] Sodium [Moles/volume ] in Serum or Plasma [facility] Total protein measurement [facility] Urea nitrogen [Mass/volume] in Serum or Plasma [facility] Immunizations Immunization Date Immunization Notes Care Provider Sasha ibanez 02-19-2023 influenza (HD-IIV4) vaccine, age 65+ yr, high dose, quadrivalent, PF (FLUZONE HIGH-DOSE) Yoseph Fall MD Work Phone: [facility] 02-19-2023 influenza virus vacc ine, unspecified formulation Yoseph Fall MD Work Phone: [facility] 07-17-2021 pneumococcal polysaccharide vaccine, 23 valent Yoseph Fall MD Work Phone: [facility] 02-08-2019 influenza, injectabl e, quadrivalent, contains preservative Yoseph Fall MD Work Phone: [facility] 02-08-2019 influenza virus vacc ine, unspecified formulation Yoseph Fall MD Work Phone: [facility] 05-11-2018 influenza, injectabl e, quadrivalent, contains preservative Yoseph Fall MD Work Phone: [facility] 09-24-2017 pneumococcal conjuga te vaccine, 13 valent Yoseph Fall MD Work Phone: [facility] 02-25-2016 influenza, seasonal, injectable Yoseph Fall MD Work Phone: [facility] Work Phone: 10-24-2013 tetanus toxoid, redu ani diphtheria toxoid, and acellular pertussis vaccine, adsorbed Yoseph Fall MD Work Phone: [facility] 10-22-2013 tetanus toxoid, redu ani diphtheria toxoid, and acellular pertussis vaccine, adsorbed [facility] 03-13-2013 influenza virus vacc ine, unspecified formulation Yoseph Fall MD Work Phone: [facility] 03-09-2013 Influenza virus vaccine [facility] 03-21-2012 pneumococcal polysaccharide vaccine, 23 valent Yoseph Fall MD Work Phone: [facility] 03-21-2012 pneumococcal vaccine , unspecified formulation [facility] 03-17-2010 pneumococcal polysaccharide vaccine, 23 valent Yoseph Fall MD Work Phone: [facility] Work Phone: 03-03-2010 influenza virus vacc ine, unspecified formulation Yoseph Fall MD Work Phone: [facility] 02-10-2008 influenza virus vacc ine, unspecified formulation Yoseph Fall MD Work Phone: [facility] 03-22-2007 influenza virus vacc ine, unspecified formulation Yoseph Fall MD Work Phone: [facility] Work Phone: 04-14-2005 influenza virus vacc ine, unspecified formulation Yoseph Fall MD Work Phone: [facility] Work Phone: 04-13-2005 pneumococcal polysaccharide vaccine, 23 valent Yoseph Fall MD Work Phone: [facility] Work Phone: Payers Date Payer Category Payer Self-pay [id number] 2023 [facility] [id number] 2017 Medicaid [id number] 2017 Medicare [id number] 2017 Medicare [id number] 2017 Medicare (Managed Care) [facility] [id number] 2015 Unknown [id number] Unknown [id number] Unknown [id number] Unknown [id number] Unknown [id number] Unknown [id number] Social History Date Type Detail Facility Start: 1969 End: 04-07-2024 Tobacco smoking status NHIS Smokes tobacco daily [facility] Work Phone: Start: 1969 History of tobacco use Cigarette Smo ker [facility] Work Phone: Start: 07-17-2021 End: 07-06-2024 Alcohol intake Current drinker of alcohol (finding) [facility] Start: 10-23-2014 History SDOH Alcohol Comment 12 drinks per week [facility] Start: 1955 Sex Assigned At Not on file C [facility] Start: 07-07-2021 End: 10-17-2021 Exposure to SARS-CoV-2 (event) Not sure [facility] Start: 12-07-2019 End: 11-13-2022 Cigarettes smoked current (pack per day) - Reported 1 [facility] Start: 12-07-2019 End: 04-07-2024 Tobacco use and exposure Smokeless tobacco non-user [facility] Start: 08-07-2022 End: 11-13-2022 Tobacco use panel [facility] Adult Depression Screening Assessment 0 [facility] Start: 07-20-2023 End: 07-20-2023 Tobacco smoking status NHIS Unknown if ever smoked [facility] Start: 07-20-2023 Sober [facility] Start: 07-20-2023 None [facility] Start: 09-23-2014 Spouse/ Signif icant Other [facility] Start: 07-20-2023 Cigarettes [facility] Start: 1955 Sex Assigned At Female W [facility] Goals Date Patient Goal Desired Activity /State Personal health goal Functional Status Date Assessment Result Facility 07-22-2023 Functional status Chair [facility] Work Phone: 06-29-2016 Are you deaf, or do you have serious difficulty hearing No 06/29/2016 3:38 PM Nancy Payne RN No [facility] 06-29-2016 Are you blind, or do you have serious difficulty seeing, even when wearing glasses No 06/29/2016 3:38 PM Nancy Payne RN No [facility] 06-29-2016 Do you have serious difficulty walking or climbing stairs Yes 06/29/2016 3:38 PM Nancy Payne RN Yes [facility] 06-29-2016 Do you have difficul ty dressing or bathing No 06/29/2016 3:38 PM Nancy Payne RN No [facility] 06-29-2016 Because of a physica l, mental, or emotional condition, do you have difficulty doing errands alone such as visiting a physician's office or shopping Yes 06/29/2016 3:38 PM Nancy Payne RN Yes [facility] Mental Status Date Assessment Result Facility 07-22-2023 Cognitive function Voice/Name [facility] Work Phone: 06-29-2016 Because of a physica l, mental, or emotional condition, do you have serious difficulty concentrating, remembering, or making decisions No 06/29/2016 3:38 PM Nancy Payne RN No [facility] Clinical Notes 06-30-2016 to 08-29-2024 Telephone [...] 5 to 15 minutes Nelson Robert APRN.CNP [facility] 08-29-2024 Miscellaneous Notes The following approved medication requests have been transmitted electronically. Requested Prescriptions Pending Prescriptions Disp Refills ipratropium-albuterol (DUONEB) 0.5 mg-3 mg(2.5 mg base)/3 mL nebu 360 mL 2 Sig: inhale 1 ampule via nebulizer every 4 hours if needed for wheezing. Use over 5 to 15 minutes Nelson Robetr APRN.CNP Prescription Refill Information The patient has [...] 2024 10:54 AM documented in this encounter [facility] 08-29-2024 Telephone encounter Note Prescription Refill [...] Elma Sarah August 29, 2024 10:54 AM [facility] 08-15-2024 Telephone encounter Note Approved. PDMP [...] 30 days. Authorizing Provider: NELSON ROBERT APRN.CNP [facility] 08-15-2024 Miscellaneous Notes Approved. PDMP website [...] 2024 10:53 AM documented in this encounter [facility] 08-15-2024 Telephone encounter Note Prescription Refill [...] Hennessy LPN August 15, 2024 10:53 AM [facility] 07-24-2024 Telephone encounter Note Pt significant other Mike called and is notified of providers results and instructions. He voices understanding. Clarisse Anguiano RN [facility] 07-24-2024 Miscellaneous Notes Pt significant other [...] rash. He states the Pt has a private branch exchange repairer that come in tomorrow and she could [...] and advise Pt. documented in this encounter [facility] 07-24-2024 Telephone encounter Note She may try taking 40 mg of prednisone (she has 10 mg tablets at home) for 3 days and see if this clears up the rash; sounds like an allergic reaction. Yoseph Fall MD T [facility] 07-24-2024 Telephone encounter Note Pts significant [...] rash. He states the Pt has a private branch exchange repairer that come in tomorrow and she could try and help the Pt with a VV. He states she usually does phone visits. I told him the provider may need to see the rash. Pt was wanting the provider to order an antibiotic for it. Mike states he knows a cream could probably be called in. Please call and advise Pt. [facility] 07-12-2024 Telephone encounter Note Jenni with [facility] calls to request chart notes to support patients need for continued oxygen. Most recent visits have all been distant health. Jenni requests most recent visit be faxed. Faxed to [phone] per request. Sukhi Marrero RN [facility] 07-12-2024 Miscellaneous Notes Jenni with [facility] calls to request chart notes to support patients need for continued oxygen. Most recent visits have all been distant health. Jenni requests most recent visit be faxed. Faxed to [phone] per request. Sukhi Marrero RN documented in this encounter [facility] 07-06-2024 History of Presen t illness [...] visit. Either the patient or their legal exhibit display representative has been informed of the risks and benefits of -- and alternatives to -- treatment through a remote evaluation and consents to proceed with the evaluation remotely. Completing tele-health visit for routine follow up. Pt reports that she has a lady coming from [facility] tomorrow and asking what shots she [...] at 2.5-3 L. Pain: Chronic back; taking Freeville 5-325 mg 1 pill BID as needed. [...] lung, unspecified site (HCC) 04/26/2003 Lung cancer DC (myocardial infarction) (HCC) 10-10 taken to [facility] heart stopped Obstructive chronic bronchitis with exacerbation [...] as directred Disposable Gloves (DISPOSABLE LATEX-FREE GLOVES) [facility] 1 Box once every [...] Past Histories independently gathered by the clinical it support specialist and the remaining scribed note accurately describes my personal service to the patient. 11-20 minutes of time spent on phone call Yoseph Fall MD The documentation for this note was completed by Sanjana Baca MA acting as scribe for Yoseph Fall MD. July 06, 2024 2:02 PM. Sanjana Baca MA documented in this encounter [facility] 07-06-2024 Note HNO ID: [id number] Author: YOSEPH FALL MD Service: ? Author [...] visit. Either the patient or their legal exhibit display representative has been informed of the risks and benefits of -- and alternatives to -- treatment through a remote evaluation and consents to proceed with the evaluation remotely. Completing tele-health visit for routine follow up. Pt reports that she has a lady coming from [facility] tomorrow and asking what shots she [...] at 2.5-3 L. Pain: Chronic back; taking Freeville 5-325 mg 1 pill BID as needed. [...] lung, unspecified site (HCC) 04/26/2003 Lung cancer DC (myocardial infarction) (HCC) 10-10 taken to [facility] heart stopped Obstructive chronic bronchitis with exacerbation [...] spasm. montelukast (SINGULAIR) (more content not included)... [facility] 06-22-2024 Telephone encounter Note The patient has [...] Watson LPN June 22, 2024 10:53 AM [facility] 06-22-2024 Miscellaneous Notes The patient has [...] 2024 10:53 AM documented in this encounter [facility] 06-19-2024 Telephone encounter Note OK to refill as ordered Yoseph Fall MD [facility] 06-19-2024 Miscellaneous Notes OK to refill [...] 2024 9:31 AM documented in this encounter [facility] 06-19-2024 Telephone encounter Note The patient [...] Mora LPN June 19, 2024 9:31 AM [facility] 06-12-2024 Telephone encounter Note Form completed and faxed back to information below. Sanjana Baca MA [facility] 06-12-2024 Miscellaneous Notes Form completed and faxed back to information below. Sanjana Baca MA Type of form: Medical Necessity for incontinence supplies. Form received via fax When form is completed, Fax form to [phone] Form has been forwarded to Physician Desk: Dr. Eufemia Baca MA documented in this encounter [facility] 06-12-2024 Telephone encounter Note Type of form: Medical Necessity for incontinence supplies. Form received via fax When form is completed, Fax form to [phone] Form has been forwarded to Physician Desk: Dr. Eufemia Baca MA [facility] 06-02-2024 Telephone encounter Note Images from the original note were not included. Electronic PA rec'd and completed for cyclobenzaprine. This was denied. Note from payer: CaseId:[id number];Status:Denied;Re view Type:Prior Auth;Appeal Information: Attention:ATTN: MEDICARE [employer] [address] [address],[place], [place],[address] WebAddress:[email or web address]; Important - Please read the below [...] for a decision on the appeal.; Payer: [employer] [phone] Electronic appeal: Supported View History Notes Time User Attachment Attachment received from [employer]. 06/01/2024 7:17 PM [facility], Rx Priorauth In Document Medication Being Authorized cyclobenzaprine (FLEXERIL) 10 mg tablet Take 1 tablet by mouth two times a day as needed for muscle spasm. Dispense: 60 tablet Refills: 5 Start: 06/01/2024 Class: Normal Diagnoses: Generalized osteoarthrosis, involving multiple sites This order has been released to its destination. To be filled at: [facility] [address] [place] [address] - [address] - [phone] [facility] 06-02-2024 Miscellaneous Notes Images from the original note were not included. Electronic PA rec'd and completed for cyclobenzaprine. This was denied. Note from payer: CaseId:[id number];Status:Denied;Re view Type:Prior Auth;Appeal Information: Attention:ATTN: MEDIC[employer] [address] [address],[place], [place],[address] WebAddress:[email or web address]; Important - Please read the below [...] for a decision on the appeal.; Payer: [employer]IV[employer] [phone] Electronic appeal: Supported View History Notes Time [...] to its destination. To be filled at: [facility] [address] [place] [id number] [address] - [phone] documented in this encounter [facility] 06-01-2024 Telephone encounter Note OK to refill as ordered Yoseph Fall MD [facility] 06-01-2024 Miscellaneous Notes OK to refill [...] 2024 2:45 PM documented in this encounter [facility] 06-01-2024 Telephone encounter Note Please see [...] Gurrola RN June 01, 2024 2:45 PM [facility] 05-16-2024 Telephone encounter Note OK to refill as ordered Yoseph Fall MD [facility] 05-16-2024 Miscellaneous Notes OK to refill as ordered Yoseph Fall MD [facility] The patient has been [...] 2024 10:31 AM documented in this encounter [facility] 05-16-2024 Telephone encounter Note The patient [...] Marrero RN May 16, 2024 10:31 AM [facility] 05-16-2024 Note Patient Outreach (FA MPWS) DENIA GONZALEZ ([id number]) 1955 F Date Time Provider Department 05/16/24 YOSEPH FALL During your visit today, we recorded the following information about you: Allergies As of Date: 05/16/2024 (No Known Allergies) Date Reviewed: 04/07/2024 Reviewed by: Sanjana Baca MA - Fully Assessed Visit Diagnosis:Encounter for screening mammogram for breast cancer [Z12.31] Order(s):[facility] SCREENING [facility] [[id number]] Order #: [id number] FUTURE Prescriptions as of 06/16/2024 - cyclobenzaprine [...] directed. Dx: COPD J44.9 - Nebulizer Accessories [facility] Mask and supplies as needed - PULSE OXIMETER [facility] Use as directed to check oxygen saturation level - ammonium lactate (AMLACTIN) 12 % lotion Apply 1 application to affected area as needed for Dry Skin. - losartan (COZAAR) 50 mg tablet Take 0.5 tablets by mouth once daily. - OXYGEN, HOME THERAPY, 2.5 L/min by Nasal Cannula route continuous. Use as directred - Disposable Gloves (DISPOSABLE LATEX-FREE GLOVES) [facility] 1 Box once every [...] Stage 3 severe COPD by GOLD classification ([facility]*09/28/2005 Asthma [J45.909] GENERAL OSTEOARTHROSIS [M15.9] Essential hypertension, [...] chronic bronchitis with exacerbatio* Encounter Status:Closed by [employer], [employer] on 06/16/24 [facility] 04-10-2024 Telephone encounter Note The following approved medication requests have been transmitted electronically. Requested Prescriptions Pending Prescriptions Disp Refills tiotropium (SPIRIVA) 18 mcg inhalation capsule 30 capsule 11 Sig: Inhale 1 capsule as instructed once daily. Nelson Robert APRN.CNP [facility] 04-10-2024 Miscellaneous Notes The following approved [...] 2024 12:21 PM documented in this encounter [facility] 04-10-2024 Telephone encounter Note The patient [...] Bliss RN April 10, 2024 12:21 PM [facility] 04-07-2024 History of Presen t illness [...] visit. Either the patient or their legal exhibit display representative has been informed of the risks and benefits of -- and alternatives to -- treatment through a remote evaluation and consents to proceed with the evaluation remotely. 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 Notes increased usage due to stress. Dog recently , grand daughter in hospital. GI/Uro - Denies any stomach, bowel or urinary issues. GERD - Symptoms stable with use of Prilosec 20 mg once daily. Pain - Chronic back pain that is currently being treated with Freeville 5-325 mg 1 tab po bid prn. [...] of 14 years. Also notes granddaughter in [facility]. Trying to learn to live her anxiety [...] lung, unspecified site (HCC) 04/26/2003 Lung cancer DC (myocardial infarction) (HCC) 10-10 taken to [facility] heart stopped Obstructive chronic bronchitis with exacerbation [...] as directed. Dx: COPD J44.9 Nebulizer Accessories [facility] Mask and supplies as needed PULSE OXIMETER [facility] Use as directed to check oxygen saturation level ammonium lactate (AMLACTIN) 12 % lotion Apply 1 application to affected area as needed for Dry Skin. losartan (COZAAR) 50 mg tablet Take 0.5 tablets by mouth once daily. OXYGEN, HOME THERAPY, 2.5 L/min by Nasal Cannula route continuous. Use as directred Disposable Gloves (DISPOSABLE LATEX-FREE GLOVES) [facility] 1 Box once every [...] Past Histories independently gathered by the clinical it support specialist and the remaining scribed note accurately describes my personal service to the patient. 11-20 minutes of time spent on phone call Yoseph Fall MD The documentation for this note was completed by Sanjana Baca MA acting as scribe for Yoseph Fall MD. April 07, 2024 8:48 AM. Sanjana Baca MA documented in this encounter [facility] 04-07-2024 Note HNO ID: [id number] Author: YOSEPH FALL MD Service: ? Author [...] visit. Either the patient or their legal exhibit display representative has been informed of the risks and benefits of -- and alternatives to -- treatment through a remote evaluation and consents to proceed with the evaluation remotely. 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 Notes increased usage due to stress. Dog recently , grand daughter in hospital. GI/Uro - Denies any stomach, bowel or urinary issues. GERD - Symptoms stable with use of Prilosec 20 mg once daily. Pain - Chronic back pain that is currently being treated with Freeville 5-325 mg 1 tab po bid prn. [...] of 14 years. Also notes granddaughter in [facility]. Trying to learn to live her anxiety [...] lung, unspecified site (HCC) 04/26/2003 Lung cancer DC (myocardial infarction) (HCC) 10-10 taken to [facility] heart stopped Obstructive chronic bronchitis with exacerbation [...] Prior to Visit (more content not included)... [facility] 03-22-2024 Telephone encounter Note left message to notify patient that med has been sent into pharmacy. Vickie Niño LPN [facility] 03-22-2024 Miscellaneous Notes left message to [...] Judy Bliss RN documented in this encounter [facility] 03-22-2024 Telephone encounter Note The following approved medication requests have been transmitted electronically. Requested Prescriptions Signed Prescriptions Disp Refills amoxicillin (AMOXIL) 875 mg tablet 20 tablet 0 Sig: Take 1 tablet by mouth two times a day for 10 days. Authorizing Provider: IMAN PERSON APRN.CNP [facility] 03-21-2024 Telephone encounter Note Patient's significant [...] Please review and advise, Judy Bliss RN [facility] 03-20-2024 Telephone encounter Note Continue weaning [...] 30 days. Authorizing Provider: NELSON ROBERT APRN.CNP [facility] 03-20-2024 Miscellaneous Notes Continue weaning off. [...] 2024 12:49 PM documented in this encounter [facility] 03-20-2024 Telephone encounter Note The patient [...] Marrero RN March 20, 2024 12:49 PM [facility] 03-03-2024 Telephone encounter Note The following approved medication requests have been transmitted electronically. Requested Prescriptions Pending Prescriptions Disp Refills predniSONE (DELTASONE) 10 mg tablet 30 tablet 5 Sig: Take 1.5 tablets by mouth every other day. Nelson Robert APRN.CNP [facility] 03-03-2024 Miscellaneous Notes The following approved medication [...] last office visit in the department: 11/29/2023- [facility] Does the patient have a future office visit with this provider/department: No Visit date not found Requested Prescriptions Pending Prescriptions Disp Refills predniSONE (DELTASONE) 10 mg tablet 30 tablet 5 Sig: Take 1.5 tablets by mouth every other day. Judy Bliss RN March 03, 2024 11:23 AM documented in this encounter [facility] 03-03-2024 Telephone encounter Note The patient has been identified by name and date of : Yes Caregiver verified no other encounters exist for this prescription request: Yes Caregiver confirmed with patient/requestor that no other refills are due, in the near future, with this provider at this time: Yes The last office visit in the department: 11/29/2023- [facility] Does the patient have a future office visit with this provider/department: No Visit date not found Requested Prescriptions Pending Prescriptions Disp Refills predniSONE (DELTASONE) 10 mg tablet 30 tablet 5 Sig: Take 1.5 tablets by mouth every other day. Judy Bliss RN March 03, 2024 11:23 AM [facility] 02-14-2024 Telephone encounter Note Approved. PDMP [...] 15 minutes Authorizing Provider: NELSON ROBERT APRN.CNP [facility] 02-14-2024 Miscellaneous Notes Approved. PDMP website [...] 2024 11:28 AM documented in this encounter [facility] 02-14-2024 Telephone encounter Note The patient [...] Watson LPN February 14, 2024 11:28 AM [facility] 02-04-2024 Telephone encounter Note Pt informed, verbalized understanding. Lauren Duarte MA [facility] 02-04-2024 Miscellaneous Notes Pt informed, verbalized [...] Judy Bliss RN documented in this encounter [facility] 02-04-2024 Telephone encounter Note OK for amoxicillin as ordered. If she does not improve over the weekend she would need to be seen. Yoseph Fall MD [facility] 02-03-2024 Telephone encounter Note Patient's significant [...] Please review and advise, Judy Bliss RN [facility] 02-03-2024 Telephone encounter Note Daughter reports [...] EC for evaluation. Patient and daughter agreeable. [facility] 02-03-2024 Miscellaneous Notes Daughter reports patient [...] and daughter agreeable. documented in this encounter [facility] 01-18-2024 Telephone encounter Note Approved PDMP [...] 30 days. Authorizing Provider: NELSON ROBERT APRN.CNP [facility] 01-18-2024 Miscellaneous Notes Approved PDMP website [...] to 30 days. Authorizing Provider: NELSON ROBERT APRN.ORTHOTIST PROSTHETIST The patient has been identified by name [...] 2024 9:25 AM documented in this encounter [facility] 01-18-2024 Telephone encounter Note The patient [...] Marrero RN January 18, 2024 9:25 AM [facility] 12-24-2023 Telephone encounter Note OK to refill as ordered Yoseph Fall MD [facility] 12-24-2023 Miscellaneous Notes OK to refill [...] 2023 9:26 AM documented in this encounter [facility] 12-24-2023 Telephone encounter Note Prescription Refill [...] Giovanna Carrillo December 24, 2023 9:26 AM [facility] Work Phone: 11-29-2023 History of Presen [...] visit. Either the patient or their legal exhibit display representative has been informed of the risks [...] Pain: Chronic pain; is being weaned off Freeville 5-325 mg down to#32/month, taking 1 pill BID prn. Also uses Flexeril 10 mg BID prn. Worried pain will not be controlled on anything less than 2 norco per day. At times pain gets bad, having to use Tylenol. Wishes her Freeville would be increased. GERRY/Depression: Stable, still has [...] lung, unspecified site (HCC) 04/26/2003 Lung cancer DC (myocardial infarction) (HCC[facility] [facility] heart stopped Obstructive chronic bronchitis with exacerbation [...] Mask and supplies as needed PULSE OXIMETER [facility] Use as directed to check oxygen saturation level ammonium lactate (AMLACTIN) 12 % lotion Apply 1 application to affected area as needed for Dry Skin. losartan (COZAAR) 50 mg tablet Take 0.5 tablets by mouth once daily. OXYGEN, HOME THERAPY, 2.5 L/min by Nasal Cannula route continuous. Use as directred Disposable Gloves (DISPOSABLE LATEX-FREE GLOVES) [facility] 1 Box once every [...] Yoseph Fall MD documented in this encounter [facility] 11-29-2023 Note HNO ID: [id number] Author: YOSEPH FALL MD Service: ? Author [...] visit. Either the patient or their legal exhibit display representative has been informed of the risks [...] Pain: Chronic pain; is being weaned off Freeville 5-325 mg down to#32/month, taking 1 pill BID prn. Also uses Flexeril 10 mg BID prn. Worried pain will not be controlled on anything less than 2 norco per day. At times pain gets bad, having to use Tylenol. Wishes her Freeville would be increased. GERRY/Depression: Stable, still has [...] lung, unspecified site (HCC) 04/26/2003 Lung cancer DC (myocardial infarction) (HCC) 10-10 taken to [facility] heart stopped Obstructive chronic bronchitis with exacerbation [...] at bedtime. t (more content not included)... [facility] 11-16-2023 Telephone encounter Note OK to refill as ordered Yoseph Fall MD [facility] 11-16-2023 Miscellaneous Notes OK to refill [...] 2023 12:02 PM documented in this encounter [facility] 11-16-2023 Telephone encounter Note The patient [...] Marrero RN November 16, 2023 12:02 PM [facility] 11-08-2023 Telephone encounter Note The office [...] this decision on the coverage criteria for: 84778 EDGAR Standard MEDD Prior Authorization Policy - HIGH RISK MEDICATIONS - CYCLOBENZAPRINE [facility] 11-08-2023 Miscellaneous Notes The office rec'd [...] drug. This restriction has been approved by [facility]. This restriction only applies to patients greater [...] this decision on the coverage criteria for: 21102 EDGAR Standard MEDD Prior Authorization Policy - HIGH RISK MEDICATIONS - CYCLOBENZAPRINE documented in this encounter [facility] 11-05-2023 Telephone encounter Note The following approved medication requests have been transmitted electronically. Requested Prescriptions Pending Prescriptions Disp Refills cyclobenzaprine (FLEXERIL) 10 mg tablet 60 tablet 0 Sig: Take 1 tablet by mouth two times a day as needed for muscle spasm. Iman Person APRN.AUSTIN [facility] 11-05-2023 Miscellaneous Notes The following approved [...] 2023 11:51 AM documented in this encounter [facility] 11-05-2023 Telephone encounter Note Pt calling [...] Mora LPN November 05, 2023 11:51 AM [facility] 10-22-2023 Telephone encounter Note Phoned patient and went over notes from Dr Fall with understanding. Aware rx sent to pharmacy. [facility] 10-22-2023 Miscellaneous Notes Phoned patient and [...] Notify pt with providers decision. [facility]ses [facility]. Naima Haines MA Tried to reach pt, [...] cough. Please advise. documented in this encounter [facility] 10-22-2023 Telephone encounter Note OK for another Zpak as ordered Yoseph Fall MD [facility] 10-22-2023 Telephone encounter Note No fevers. She is coughing a little bit. The congestion has mostly cleared. She did get some improvement with the zpak she was given but doesn't feel that the infection is completely resolved. Please advise. Notify pt with providers decision. [facility]ses [facility]. Naima Haines MA [facility] 10-22-2023 Telephone encounter Note Tried to reach pt, line picks up, can hear back ground noise but no one says anything. Will try again later. Naima Haines MA [facility] 10-22-2023 Telephone encounter Note Did she get any better with the Zpak she was given in the ER? If so I would consider refill of that. If it did not help would use a different antibiotic. Yoseph Fall MD [facility] 10-22-2023 Telephone encounter Note ER report attached. Scan on 10/18/2023 6:02 AM by Provider, MARY Howe: Consultation - Emergency Medicine [facility] 10-22-2023 Telephone encounter Note Pt has requested that an antibiotic is called in for her. States she was just seen in the Emergency Room last week, however; is still having a discolored mucus with cough. Please advise. [facility] 10-18-2023 Miscellaneous Notes OK to refill [...] 2023 9:49 AM documented in this encounter [facility] 10-18-2023 Telephone encounter Note OK to refill as ordered Yoseph Fall MD [facility] 10-18-2023 Telephone encounter Note The patient [...] Louie RN October 18, 2023 9:49 AM [facility] 10-01-2023 Telephone encounter Note The following approved medication requests have been transmitted electronically. Requested Prescriptions Signed Prescriptions Disp Refills tiZANidine (ZANAFLEX) 4 mg tablet 90 tablet 5 Sig: Take 1 tablet by mouth every 8 hours as needed (muscle spasms). Authorizing Provider: YOSEPH FALL MA [facility] 10-01-2023 Miscellaneous Notes The following approved medication requests have been transmitted electronically. Requested Prescriptions Signed Prescriptions Disp Refills tiZANidine (ZANAFLEX) 4 mg tablet 90 tablet 5 Sig: Take 1 tablet by mouth every 8 hours as needed (muscle spasms). Authorizing Provider: YOSEPH FALL MA OK for zanaflex as ordered Yoseph Fall MD [facility] calls to ask if provider would send in a different prescription than flexeril d/t having to pay for medication. Recommended contacting insurance to see what medication is covered and it was requested to just send something in as they can never get a hold of anyone at the insurance company. Pharmacy is [facility] Marrero RN documented in this encounter [facility] 10-01-2023 Telephone encounter Note OK for zanaflex as ordered Yoseph Fall MD [facility] 10-01-2023 Telephone encounter Note [facility] calls to ask if provider would send in a different prescription than flexeril d/t having to pay for medication. Recommended contacting insurance to see what medication is covered and it was requested to just send something in as they can never get a hold of anyone at the insurance company. Pharmacy is [facility] Marrero RN [facility] 09-22-2023 Telephone encounter Note The following approved medication requests have been transmitted electronically. Requested Prescriptions Pending Prescriptions Disp Refills ipratropium-albuterol (DUONEB) 0.5 mg-3 mg(2.5 mg base)/3 mL nebu 360 mL 2 Sig: inhale 1 ampule via nebulizer every 4 hours if needed for wheezing. Use over 5 to 15 minutes Nelson Robert APRN.CNP [facility] 09-22-2023 Miscellaneous Notes The following approved [...] you. Louisa Nobles. documented in this encounter [facility] 09-22-2023 Telephone encounter Note Patient has [...] 11/23/2023 Please advise. Thank you. Louisa Nobles. [facility] 09-16-2023 Telephone encounter Note OK to refill as ordered Yoseph Fall MD [facility] 09-16-2023 Miscellaneous Notes OK to refill [...] you. Louisa Nobles. documented in this encounter [facility] 09-15-2023 Telephone encounter Note The following approved medication requests have been transmitted electronically. Requested Prescriptions Pending Prescriptions Disp Refills fluticasone (FLONASE) 50 mcg/actuation nasal spray 48 g 11 Sig: use 2 sprays in each nostril daily. Rinse mouth after use Iman Person APRN.CNP [facility] 09-15-2023 Miscellaneous Notes The following approved [...] Essie Medina RN. documented in this encounter [facility] 09-15-2023 Telephone encounter Note Patient has [...] Please advise. Thank you. Louisa Nobles. T [facility] 09-15-2023 Telephone encounter Note Patient has [...] advise. Thank you. Essie Medina RN. T [facility] 08-23-2023 History of Presen t illness [...] visit. Either the patient or their legal exhibit display representative has been informed of the risks [...] daily. Pain: uses Flexeril 10 mg daily, Freeville 5-325 mg 1 pill BID prn, taking [...] lung, unspecified site (HCC) 04/26/2003 Lung cancer DC (myocardial infarction) (HCC) 10-10 taken to [facility] heart stopped Obstructive chronic bronchitis with exacerbation [...] as directed. Dx: COPD J44.9 Nebulizer Accessories [facility] Mask and supplies as needed rOPINIRole (REQUIP) 0.25 mg tablet Take 1 tablet by mouth daily at bedtime. PULSE OXIMETER [facility] Use as directed to check oxygen [...] as directred Disposable Gloves (DISPOSABLE LATEX-FREE GLOVES) [facility] 1 Box once every [...] Past Histories independently gathered by the clinical it support specialist and the remaining scribed note accurately describes my personal service to the patient. 11-20 minutes of time spent on phone call Yoseph Fall MD The documentation for this note was completed by Naima Haines MA acting as scribe for Yoseph Fall MD. August 23, 2023 2:19 PM. Naima Haines MA documented in this encounter [facility] 08-23-2023 Note HNO ID: [id number] Author: YOSEPH FALL MD Service: ? Author [...] visit. Either the patient or their legal exhibit display representative has been informed of the risks [...] daily. Pain: uses Flexeril 10 mg daily, Freeville 5-325 mg 1 pill BID prn, taking [...] lung, unspecified site (HCC) 04/26/2003 Lung cancer DC (myocardial infarction) (HCC) 10-10 taken to [facility] heart stopped Obstructive chronic bronchitis with exacerbation [...] (NICODERM) 7 mg (more content not included)... [facility] 07-27-2023 Miscellaneous Notes OK to refill as [...] Brynn Watson LPN. documented in this encounter [facility] 07-26-2023 History of Presen t illness [...] visit. Either the patient or their legal exhibit display representative has been informed of the risks [...] for hospital follow up. Pt admitted into [facility] on 07/20/23 and discharged on 07/22/23. Overall [...] days. Nicorette 2 mg gum, states her Eyryfwwl-fr-nfn was picking this up today. SUMMARY: -Pt discharged from [facility] on 07/22/23. Pt admitted on 07/20/23. -Admitted [...] anxiety, GERD and OA who presents to [facility] ER complaining of shortness of breath, wheezing [...] exacerbation of COPD with clinical evidence of onuut-as-juruiwv hypoxic respiratory insufficiency likely due to recent [...] enlargement Borderline ECG Confirmed by Junito Madrid ([id number]), food editor CLARISSE RAMIREZ ([id number]) on 07/20/2023 1:47:04 PM Chest XR 07/20/23: [...] KB 30 S Records were obtained from [facility] Everywhere for continuity of care. VIDEO EXAMINATION [...] Yoseph Fall MD documented in this encounter [facility] 07-26-2023 History of Presen t illness Narrative TRANSITION CARE MANAGEMENT (TCM) INITIAL CONTACT [employer] Services Sales Representative Outreach Provider Action/FYI: Pt reports that she's [...] of Discharge 07/22/2023 SUMMARY: -Pt discharged from [facility] on 07/22/23. Pt admitted on 07/20/23. -Admitted [...] anxiety, GERD and OA who presents to [facility] ER complaining of shortness of breath, wheezing [...] exacerbation of COPD with clinical evidence of dvzzf-cg-jpuvyzq hypoxic respiratory insufficiency likely due to recent [...] enlargement Borderline ECG Confirmed by Junito Madrid ([id number]), food editor CLARISSE RAMIREZ ([id number]) on 07/20/2023 1:47:04 PM Chest XR 07/20/23: [...] KB 30 S Records were obtained from [facility] Everywhere for continuity of care. Do you [...] Yes Medical records from recent hospitalization: Care Everywhere/[facility] records Sanjana Baca MA documented in this encounter [facility] 07-22-2023 Discharge summary Note Date/Time July 22, 2023 4:04pm [facility] Medical Records Department [address] [place] [address] Instructions for Home/Discharge Instructions 07/22/23 1603 MR#: [id number] Acct: [id number] Name: DENIA GONZALEZ Rep #:[id number] : 1955 68 From: Jan brennan MD [...] DO; Dr. Yoseph Fall MD ~ Signed [facility] Work Phone: 1(192) 510-329703-28-2024 Discharge summary Author Jan Bolanos [facility] July 22, 2023 4:18pm Note Date/Time July 22, 2023 4:1 7pm [facility] Medical Records Department [address] [place] [address] Discharge Summary 07/22/231611 MR#: [id number] Acct: [id number] Name: DENIA GONZALEZ Rep #:[id number] : 1955 68 From: Jan brennan MD PCP: Dr. Yoseph Fall MD Status:AD M IN Location: [facility] [id number] Providers Date of Admission: 07/20/23 Primary Care Physician: Dr. Yoseph Fall MD Reason For Visit: ACUTE EXACERBATION OF COPD WITH XANSA-UX-VTTVINB Diagnosis Discharge Diagnosis (1) COPD with acute [...] anxiety, GERD and OA who presents to [facility] ER complaining of shortness of breath, wheezing [...] exacerbation of COPD with clinical evidence of pcxci-su-oshtukt hypoxic respiratory insufficiency likely due to recent [...] Self Care Charges/Coding Visit Charges Inpatient E&M: 03581 Disch Hosp >30min 07/22/23 1618 <Electronically signed by Jan Bolanos MD> Cosigner Signature (if applicable): CC: Dr. Yoseph Fall MD; Dr. Jan Bolanos MD~ Signed [facility] Work Phone: 1(742) 660-352503-28-2024 [facility] Medical Records Department [address] [place] [address] Discharge Summary 07/22/23 1612 MR#: [id number] Acct: [id number] Name: DENIA GONZALEZ Rep #: [id number] : 1955 68 From: Jan Bolanos MD PCP: Dr. Yoseph Fall MD Status:ADM IN Location: [facility] [id number] Providers Date of Admission: 07/20/23 Primary Care Physician: Dr. Yoseph Fall MD Reason For Visit: ACUTE EXACERBATION OF COPD WITH MEVWV-PQ-PHXRTMF Diagnosis Discharge Diagnosis (1) COPD with acute [...] anxiety, GERD and OA who presents to [facility] ER complaining of shortness of breath, wheezing [...] exacerbation of COPD with clinical evidence of skcgs-us-kmufhet hypoxic respiratory insufficiency likely due to recent [...] discharge she expressed under (more content not included)...[facility]03-28-2024 Progress note Author Jan Bolanos [facility] July 22, 2023 11:02am Note Date/Time July 22, 2023 11: 02am [facility] Medical Records Department [address] [place] [address] Progress Note - Hospitalist 07/22/23 1101 MR#: [id number] Acct: [id number] Name: DENIA GONZALEZ Rep #:[id number] : 1955 68 From: Jan brennan MD PCP: Dr. Yoseph Fall MD Status:AD M IN Location: [place] [address] Subjective Subjective Doing well, feels like she [...] DVT: Lovenox Charges/Coding Visit Charges Inpatient E&M: 26821 Subs Hosp L2 07/22/23 1102 <Electronically signed by Jan Bolanos MD> Cosigner Signature (if applicable): CC: ~ Signed [facility] Work Phone: 1(160) 668-567803-27-2024 Progress note Author Jan Bolanos [facility] July 21, 2023 10:28am Note Date/Time July 21, 2023 10: 25am [facility] Medical Records Department [address] [place] [address] [place] [address] Progress Note - Hospitalist 07/21/23 1013 MR#: [id number] Acct: [id number] Name: DENIA GONZALEZ Rep #:[id number] : 1955 68 From: Jan brennan MD PCP: Dr. Yoseph Fall MD Status:AD M IN Location: MS3 XY415-2 Subjective Subjective She feels about the same [...] 88.1 H, Lymph % (Auto) 8.8 L, Barron %(Auto) 2.7, Eos % (Auto) 0.0, Baso [...] DVT: Lovenox Charges/Coding Visit Charges Inpatient E&M: 94556 Subs Hosp L2 07/21/23 1020 <Electronically signed by Jan Bolanos MD> Cosigner Signature (if applicable): CC: ~ Signed [facility] Work Phone: 1(392) 663-594903-26-2024 Discharge summary Author Dallas Mena [facility] July 20, 2023 6:49am Note Date/Time July 20, 2023 3:0 9am [facility] Medical Records Department [address] [place] [place] [address] Emergency Department Summary 07/20/23 MR#: [id number] Acct: [id number] Name: DENIA GONZALEZ Rep #:[id number] : 1955 68 From: Dallas Mena MD PCP: Dr. Yoseph Fall MD Status:AD M IN Location: [place]3 DF578-3 HPI History of Present Illness Chief Complaint: [...] % (Auto) 67.5 Lymph % (Auto) 23.7 Barron % (Auto) 7.6 Eos % (Auto) 0.6 [...] rate of 128. No acute signs of DC or ischemia. Discharge Plan Triage Chief Complaint: [...] and wheezing. Disposition Disposition: Acute Care Hospital [facility] What to do if you have Problems For any increased pain, shortness of breath, bleeding, nausea or vomiting, chestpain, or any unexpected problems, contact your Primary Care Provider. Call [facility] ([phone]) or report to the closest Emergency Room. Call 911 if necessary. 07/20/23 0649 <Electronically signed by Dallas Mena MD> Cosigner Signature (if applicable): CC: Dr. Yoseph Fall MD ~ Signed [facility] Work Phone: 1(695) 680-901203-26-2024 Miscellaneous Notes* Telephone Encounter - Sanjana Baca MA - 07/20/2023 8:40 AM EDT Pt currently admitted into [facility] due to symptoms. Sanjana Baca MA * [...] advise. Jennifer Hennessy LPN documented in [facility] History and physical note Author José Smith [facility] July 20, 2023 4:55am Note Date/Time July 20, 2023 4:2 4am [facility] Medical Records Department [address] [place] [address] H&P Exam - Hospitalist 07/20/236 MR#: [id number] Acct: [id number] Name: DENIA GONZALEZ Rep #:[id number] : 1955 68 From: José Abebe DO PCP: Dr. Yoseph Fall MD Status:AD M IN Location: [facility] SA567-7 [facility] - General General Date of Admission: [...] anxiety, GERD and OA who presents to [facility] ER complaining of shortness of breath, wheezing [...] exacerbation of COPD with clinical evidence of oweve-lo-lixptds hypoxic respiratory insufficiency likely due to recent viral URI in the setting of ongoing tobacco abuse and she was then admitted to the general medical floor forongoing care for stay that is expected to be greater than 48 hours. [facility] Home Medications albuterol sulfate 90 mcg/actuation aerosol [...] % (Auto) 67.5, Lymph % (Auto) 23.7, Barron% (Auto) 7.6, Eos % (Auto) 0.6, Baso [...] needed nebulizers. Give Tylenol as needed for jcwp-xp-jxvghqgj(level 1- 5/10) pain or fever. Continue Percocet prn for severe (level 6-10/10) pain. Tobacco cessation will be strongly encouraged with nicotine patch offeredto control cravings. 2. Viral URI likely triggering #1 - Check viral respiratory panel and placed oncontact and droplet precautions until confirmed negative. 3. Eifae-fz-ablukvt hypoxic respiratory insufficiency arising from #1 & [...] 55 minutes. Charges/Coding Visit Charges Inpatient E&M: 74065 Init Hosp L2 07/20/23 0210 <Electronically signed by José Cunningham DO> Cosigner Signature (if applicable): CC: Dr. José Cunningham DO; Dr. Yoseph Fall MD~ Signed [facility] Work Phone: 1(991) 613-340703-04-2024 Miscellaneous Notes* Telephone Encounter - Yoseph Fall MD - 06/28/2023 3:59 PM EST OK to refill as ordered Yoseph Fall MD documented in this encounterOhio[facility] Miscellaneous Notes* Telephone Encounter - Naima Haines Ma - 06/17/2023 11:12 AM EST Faxed. Naima Haines Ma * Telephone Encounter - Naima Haines Ma - 06/17/2023 9:58 AM EST Type of letter/form/fax request - Medical Necessity-incontinence supplies Form received from fax on 1 floor and placed on MD desk (Dr. Fall) for completion. Completed form needs to be faxed to [facility] at [phone]. Route to [place] when form completed for processing documented in this encounterOhiohealth [facility]02-21-2024 Miscellaneous Notes* Telephone Encounter - Meenu [...] cmpleted for tiotropium spirva DENIA GONZALEZ ([place]: [id number]) - [id number] Spiriva HandiHaler 18MCG capsules Status: PA Request Created: June 11, 2023 [id number] Sent: June 14, 2023 documented in this encounterOhiohealth [facility]02-20-2024 Miscellaneous Notes* Telephone Encounter - Sanjana [...] call pt with reply. documented in this encounterOhiohealth [facility]02-16-2024 Miscellaneous Notes* Telephone Encounter - Yoseph [...] you. Brynn Watson LPN. documented in this encounterOhiohealth [facility]12-05-2023 Miscellaneous Notes* Telephone Encounter - Padmini Abbott RN - 03/30/2023 4:17 PM EST Pt's significant other, Mike Gregg calling. Requesting PCP office to fax orders for pt's nebulizer ,compressor and accessories to [facility] at FAX #: [phone], along with recent OV note. States pt receives other equipment from them and they would like to use their services. States they have not heard from [facility] when orders were originally faxed to them. Faxed as requested. Padmini Abbott RN documented in this encounterOhio[facility]11-22-2023 Miscellaneous Notes* Telephone Encounter - Roxanna [...] you. Roxanna Tineo LPN. documented in this encounterOhiohealth [facility]10-27-2023 Instructions* Patient Instructions* Sanjana Baca Ma - 02/19/2023 2:31 PM EDT Check with Engineer Assistant on RSV vaccine. documented in this encounterOhiohealth [facility]ert [facility]10-27-2023 History of Present illness Narrative* Yoseph [...] is currently being weaned down on her Freeville 5-325 mg, concerned about going any lower as she doesn't think her pain will be controlled. She is taking Freeville 5-325 mg 1 pill bid prn, getting #33/month, and Flexeril 10 mg BID prn. Freeville was decreased last visit from #35/month to [...] Agreeable to Flu shot today. Reports her Engineer Assistant, may be able to give her the [...] and lung, unspecified site 04/26/2003 Lung cancer DC (myocardial infarction) (HCC) 10-10 taken to [facility] heart stopped Obstructive chronic bronchitis with exacerbation [...] as directed. Dx: COPD J44.9 Nebulizer Accessories [facility] Mask and supplies as needed Mbutsepxkytni-XH-jdwsHVJwqwg (MUCINEX FAST-MAX CONGEST-COUGH) 2.5-5-100 mg/5 mL liqd Take 10 mL by mouth three times daily as needed. OXYGEN, HOME THERAPY, 2.5 L/min by Nasal Cannula route continuous. Use as directred Disposable Gloves (DISPOSABLE LATEX-FREE GLOVES) [facility] 1 Box once every [...] Stage 3 severe COPD by GOLD classification ([facility]) - ICD9: 496, ICD10: J44.9 - Continue current medication regimen. - Send Nebulizer supplies to [facility] 8. Gastroesophageal reflux disease, unspecified whether esophagitis [...] Past Histories independently gathered by the clinical it support specialist and the remaining scribed note accurately describes [...] PM. Sanjana Baca Ma documented in this encounterOhiohealth [facility]09-22-2023 Miscellaneous Notes* Telephone Encounter - Nelson [...] you. Sukhi Marrero, RN documented in this encounterOhiohealth [facility]09-05-2023 Miscellaneous Notes* Telephone Encounter - Nelson [...] 12/29/2022 12:32 PM EDT Pharmacy verified in [facility] Patient has been identified by name and [...] Please advise. Mercedez Carrillo documented in this encounterOhiohealth [facility]08-17-2023 Miscellaneous Notes* Telephone Encounter - Meenu Hanks LPN - 12/10/2022 3:29 PM EDT Pt notfied Meenu Hanks LPN * Telephone Encounter - Yoseph Fall MD - 12/10/2022 2:38 PM EDT Order filed Yoseph Fall MD * Telephone Encounter - Brynn Watson LPN - 12/10/2022 12:09 PM EDT Patient daughter calling mother had sent to her to car pick up driver stool sample, no order in computer. Computer shows at last office visit Dr was asking patient if she would do IFOBT and no order was put in the computer. Pending order needs diagnosis. Call patient when order in place so can car pick up driver kit. Please advise documented in this encounterOhiohealth Van Wert Hospital07-14-2023 Miscellaneous Notes* Telephone Encounter - Nelson [...] has one pill left. documented in this encounterOhiohealth Van Wert Hospital05-09-2023 Miscellaneous Notes* Telephone Encounter - Michelle [...] them run with specific NDC code. NDC: [id number] NDC: [id number] Called mary ann and they ran medication [...] PAover the phone with rep PA # [id number] Michelle Alvarez Ma * Telephone Encounter - Michelle Alvarez Ma - 08/21/2022 3:46 PM EDT PA have never been completed for either med which needs done first before appeal letter. Completed Electronic PA for Advair was approved and verified with [employer] goes through. Tried calling patientbut no answer and vm full. PA completed through covermymeds for [employer] [place]: [id number] Michelle Alvarez Ma * Telephone Encounter - [...] know the fax number. Patient's insurance is [employer]. Asked patient what the phone number was [...] calling: self Call patient at: at home [phone] (home) [phone] (cell) Was an appointment scheduled: No Closing statement: Results or non-symptom based questions: Thank you for [facility], your call will be returned within the next business day. Orly Stacy documented in this encounterOhiohealth Van Wert Hospital03-10-2023 Miscellaneous Notes* Telephone Encounter - Naima Haines Ma - 07/03/2022 10:32 AM EST Faxed. Naima Haines Ma * Telephone Encounter - Naima Haines Ma - 07/02/2022 9:09 AM EST Type of letter/form/fax request - Medical Necessity-Incontinence supplies Form received from fax on [address] Fall's desk for completion. Completed form needs to be faxed to [facility] at [phone]. Route to [place] when form completed for processing documented in this encounterOhiohealth Van Wert Hospital03-06-2023 Miscellaneous Notes* Telephone Encounter - Nelson [...] notify patient. Orly Stacy documented in this encounterOhiohealth Van Wert Hospital02-13-2023 Miscellaneous Notes* Telephone Encounter - Nelson [...] you. Essie Medina RN documented in this encounterOhiohealth Van Wert Hospital01-20-2023 Miscellaneous Notes* Telephone Encounter - Yoseph [...] Date of Last Labs: documented in this encounterOhiohealth Van Wert Hospital01-10-2023 Miscellaneous Notes* Telephone Encounter - Nelson [...] notify patient. Fawn Carrillo documented in this encounterOhiohealth Van Wert Hospital01-06-2023 History of Present illness Narrative* Yoseph [...] is currently being weaned down on her Freeville 5-325 mg. Does not think shecan go any lower on the Freeville. Pt on current regimen of Freeville 5-325 mg taking 1 tab po bid [...] and lung, unspecified site 04/26/2003 Lung cancer DC (myocardial infarction) (HCC) 10-10 taken to [facility] heart stopped Obstructive chronic bronchitis with exacerbation [...] instructed every 4 hours asneeded. PULSE OXIMETER [facility] Use as directed to check oxygen [...] as directed. Dx: COPD J44.9 Nebulizer Accessories [facility] Mask and supplies as needed Fcwhtnfncodcx-VZ-icnpPTDzmsd (MUCINEX FAST-MAX CONGEST-COUGH) 2.5-5-100 mg/5 mL liqd Take 10 mL by mouth three times daily as needed. OXYGEN, HOME THERAPY, 2.5 L/min by Nasal Cannula route continuous. Use as directred Disposable Gloves (DISPOSABLE LATEX-FREE GLOVES) [facility] 1 Box once every [...] Past Histories independently gathered by the clinical it support specialist and the remaining scribed note accurately describes my personal service to the patient. 5-10 minutes of time spent on phone call Yoseph Fall MD The documentation for this note was completed by Naima Haines Ma acting as scribe for Yoseph Fall MD. May 01, 2022 2:41 PM. Naima Haines Ma documented in this encounterOhiohealth Van Wert Hospital12-27-2022 Miscellaneous Notes* Telephone Encounter - Yoseph [...] up with PCP please. documented in this encounterOhiohealth Van Wert Hospital11-04-2022 Miscellaneous Notes* Telephone Encounter - Falguni [...] file order for oxygen and fax to [facility] in [place]. This nurse does not see order in computer and it appears PCP has ordered oxygen in the past. Please call patient at [phone] when this has been completed or if there are any issues. documented in this encounterOhiohealth Van Wert Hospital10-28-2022 Procedure note* MUNA Cutler - 02/20/2022 [...] TIME: 1:25 PM Comment: documented in this encounterOhiohealth Van Wert Hospital10-28-2022 History of Present illness Narrative* MUNA Cutler - 02/20/2022 1:22 PM EDT PULM FUNCTION SMARTBLOCK: Provider: Michelle Guzmán MD Assisting Tech: MUNA Cutler Oximetry - Ambulation: 1 documented in this encounterOhiohealth Van Wert Hospital09-27-2022 Miscellaneous Notes* Telephone Encounter - Nelson [...] patient. Fina Mora Pss documented in this encounterOhiohealth Van Wert Hospital09-15-2022 Miscellaneous Notes* Telephone Encounter - Falguni Patton LPN - 01/08/2022 8:39 AM EDT Noted, thank you! Falguni Patton LPN * Telephone Encounter - Mini Pineda RN - 01/08/2022 8:31 AM EDT Bettie with [facility] calling in. States pt. needs to re-qualify for home O2. Pt. has not seen a Property Loss Insurance Claim Adjuster for a while (former pt. of Dr. Huertas). This nurse instructed Bettie to have pt.call to set up consult/ appt with Dr. Guzmán. Bettie will do so. Mini Pineda RN documented in this encounterOhiohealth Van Wert Hospital08-25-2022 Miscellaneous Notes* Telephone Encounter - Naima Haines Ma - 12/18/2021 9:49 AM EDT Tried to notify pt of decrease in number of pills, VM full. Naima Haines Ma * Telephone Encounter - Yoseph Fall MD - 12/18/2021 9:07 AM EDT OK to refill as ordered Taper down to #35 pills/month Yoseph Fall MD * Telephone Encounter - [...] you. Cami Louie RN documented in this encounterOhiohealth Van Wert Hospital07-25-2022 Miscellaneous Notes* Telephone Encounter - Nelson [...] to pharmacy. No need to notify patient. Niac Tellez MA Negra; 09/2021 Nov; 12/2021 Last [...] patient. Denia Ariza Pss documented in this encounterOhiohealth Van Wert Hospital06-24-2022 History of Present illness Narrative* Yoseph [...] is currently being weaned down on her Freeville 5-325 mg. Pt on current regimen of Freeville 5-325 mg taking 1 tab po bid [...] and lung, unspecified site 2003 Lung cancer DC (myocardial infarction) (HCC) 10-10 taken to [facility] heart stopped Obstructive chronic bronchitis with exacerbation [...] as needed for muscle spasm. PULSE OXIMETER [facility] Use as directed to check oxygen [...] Accessories misc Mask and supplies as needed Yahkefivavthe-EP-dnpnEAUbiru (MUCINEX FAST-MAX CONGEST-COUGH) 2.5-5-100 mg/5 mL liqd Take 10 mL by mouth three times daily as needed. OXYGEN, HOME THERAPY, 2.5 L/min by Nasal Cannula route continuous. Use as directred Disposable Gloves (DISPOSABLE LATEX-FREE GLOVES) [facility] 1 Box once every [...] Past Histories independently gathered by the clinical it support specialist and the remaining scribed note accurately describes my personal service to the patient. Yoseph Fall MD The documentation for this note was completed by Naima Haines Ma acting as scribe for Yoseph Fall MD. October 17, 2021 2:02 PM. Naima Haines Ma documented in this encounterOhiohealth Van Wert Hospital06-07-2022 Miscellaneous Notes* Telephone Encounter - Naima [...] you. Mikayla Mora LPN documented in this encounterOhiohealth Van Wert Hospital05-23-2022 Miscellaneous Notes* Telephone Encounter - Yoseph [...] patient. Jennifer Hennessy LPN documented in this encounterOhiohealth Van Wert Hospital05-04-2022 Miscellaneous Notes* Telephone Encounter - Nelson [...] provider send a new prescription to [facility]. Pharmacy won't fill current prescription. Date [...] you. Sukhi Marrero RN documented in this encounterOhiohealth Van Wert Hospital04-25-2022 Miscellaneous Notes* Telephone Encounter - Naima [...] you. Padmini Abbott RN documented in this encounterOhiohealth Van Wert Hospital03-07-2017 History of Past illness Narrative* Problem [...] - Not done as it will not manager exchange (same duration of ABx treatment) Cholelithiasis with [...] 06/24/2016 - Decreased Flatulence - [facility] at [facility] [place] was normal (report available only) Plan: - [...] of this encounter (statuses as of 08/01/2021) [facility]03-[facility] History of Past illness Narrative* Problem [...] - Not done as it will not manager exchange (same duration of ABx treatment) Cholelithiasis with [...] 06/24/2016 - Decreased Flatulence - [facility] at [facility] was normal (report available only) Plan: [...] of this encounter (statuses as of 08/18/2021) [facility]03-[facility] History of Past illness Narrative* Problem [...] - Not done as it will not manager exchange (same duration of ABx treatment) Cholelithiasis with [...] 06/24/2016 - Decreased Flatulence - KUB at [facility] was normal (report available only) Plan: [...] of this encounter (statuses as of 08/27/2021) [facility] of Past illness Narrative* Problem [...] - Not done as it will not manager exchange (same duration of ABx treatment) Cholelithiasis with [...] 06/24/2016 - Decreased Flatulence - K[facility] at [facility] was normal (report available only) Plan: [...] of this encounter (statuses as of 09/15/2021) [facility] of Past illness Narrative* Problem [...] - Not done as it will not manager exchange (same duration of ABx treatment) Cholelithiasis with [...] 06/24/2016 - Decreased Flatulence - KUB at [facility] was normal (report available only) Plan: [...] of this encounter (statuses as of 09/30/2021) [facility] of Past illness Narrative* Problem [...] - Not done as it will not manager exchange (same duration of ABx treatment) Cholelithiasis with [...] 06/24/2016 - Decreased Flatulence - K[facility] at [facility] was normal (report available only) Plan: [...] of this encounter (statuses as of 10/17/2021) [facility] of [facility] illness Narrative* Problem [...] - Not done as it will not manager exchange (same duration of ABx treatment) Cholelithiasis with [...] 06/24/2016 - Decreased Flatulence - KUB at [facility] was normal (report available only) Plan: [...] of this encounter (statuses as of 11/17/2021) [facility] of [facility] Narrative* Problem [...] - Not done as it will not manager exchange (same duration of ABx treatment) Cholelithiasis with [...] 06/24/2016 - Decreased Flatulence - KUB at [facility] was normal (report available only) Plan: [...] of this encounter (statuses as of 12/18/2021) [facility] of [facility] Narrative* Problem [...] - Not done as it will not manager exchange (same duration of ABx treatment) Cholelithiasis with [...] 06/24/2016 - Decreased Flatulence - KUB at [facility] was normal (report available only) Plan: [...] of this encounter (statuses as of 01/08/2022) [facility] Narrative* Problem [...] - Not done as it will not manager exchange (same duration of ABx treatment) Cholelithiasis with [...] 06/24/2016 - Decreased Flatulence - K[facility] at [facility] was normal (report available only) Plan: [...] of this encounter (statuses as of 01/13/2022) [facility] Narrative* Problem [...] - Not done as it will not manager exchange (same duration of ABx treatment) Cholelithiasis with [...] 06/24/2016 - Decreased Flatulence - KUB at [facility] was normal (report available only) Plan: [...] of this encounter (statuses as of 01/20/2022) [facility] Narrative* Problem [...] - Not done as it will not manager exchange (same duration of ABx treatment) Cholelithiasis with acute ch olangitis with biliary obstruction 06/21/2016 06/27/2016 Overview: - Abdominal pain, Brunett positive - Cholestasis: AP: 255T bili 1.4 [...] 06/24/2016 - Decreased Flatulence - KUB at [facility] was normal (report available only) Plan: [...] of this encounter (statuses as of 02/20/2022) [facility] Narrative* Problem [...] - Not done as it will not manager exchange (same duration of ABx treatment) Cholelithiasis with [...] 06/24/2016 - Decreased Flatulence - KUB at [facility] was normal (report available only) Plan: [...] of this encounter (statuses as of 02/27/2022) [facility] Narrative* Problem [...] - Not done as it will not manager exchange (same duration of ABx treatment) Cholelithiasis with [...] 06/24/2016 - Decreased Flatulence - KUB at [facility] was normal (report available only) Plan: [...] of this encounter (statuses as of 04/26/2022) [facility] Narrative* Problem [...] - Not done as it will not manager exchange (same duration of ABx treatment) Cholelithiasis with [...] 06/24/2016 - Decreased Flatulence - KUB at [facility] was normal (report available only) Plan: [...] of this encounter (statuses as of 05/02/2022) [facility] Narrative* Problem [...] - Not done as it will not manager exchange (same duration of ABx treatment) Cholelithiasis with [...] 06/24/2016 - Decreased Flatulence - KUB at [facility] was normal (report available only) Plan: [...] of this encounter (statuses as of 05/05/2022) [facility] Narrative* Problem [...] - Not done as it will not manager exchange (same duration of ABx treatment) Cholelithiasis with [...] 06/24/2016 - Decreased Flatulence - KUB at [facility] was normal (report available only) Plan: [...] of this encounter (statuses as of 05/15/2022) [facility] Narrative* Problem [...] - Not done as it will not manager exchange (same duration of ABx treatment) Cholelithiasis with [...] 06/24/2016 - Decreased Flatulence - KUB at [facility] was normal (report available only) Plan: [...] of this encounter (statuses as of 06/08/2022) [facility] N[facility]ative* Problem [...] - Not done as it will not manager exchange (same duration of ABx treatment) Cholelithiasis with [...] 06/24/2016 - Decreased Flatulence - KUB at [facility] was normal (report available only) Plan: [...] of this encounter (statuses as of 06/29/2022) [facility] Narrative* Problem [...] - Not done as it will not manager exchange (same duration of ABx treatment) Cholelithiasis with [...] 06/24/2016 - Decreased Flatulence - KUB at [facility] was normal (report available only) Plan: [...] of this encounter (statuses as of 07/03/2022) [facility] Narrative* Problem [...] - Not done as it will not manager exchange (same duration of ABx treatment) Cholelithiasis with [...] 06/24/2016 - Decreased Flatulence - KUB at [facility] was normal (report available only) Plan: [...] of this encounter (statuses as of 09/01/2022) [facility]* Problem [...] - Not done as it will not manager exchange (same duration of ABx treatment) Cholelithiasis with [...] 06/24/2016 - Decreased Flatulence - KUB at [facility] was normal (report available only) Plan: [...] of this encounter (statuses as of 11/06/2022) [facility] N[facility]ative* Problem [...] - Not done as it will not manager exchange (same duration of ABx treatment) Cholelithiasis with [...] 06/24/2016 - Decreased Flatulence - KUB at [facility] was normal (report available only) Plan: [...] of this encounter (statuses as of 11/06/2022) [facility] N[facility]ative* Problem [...] - Not done as it will not manager exchange (same duration of ABx treatment) Cholelithiasis with [...] 06/24/2016 - Decreased Flatulence - KUB at [facility] was normal (report available only) Plan: [...] of this encounter (statuses as of 12/29/2022) [facility]* Problem [...] - Not done as it will not manager exchange (same duration of ABx treatment) Cholelithiasis with [...] 06/24/2016 - Decreased Flatulence - KUB at [facility] was normal (report available only) Plan: [...] of this encounter (statuses as of 01/15/2023) [facility]* Problem [...] - Not done as it will not manager exchange (same duration of ABx treatment) Cholelithiasis with [...] 06/24/2016 - Decreased Flatulence - KUB at [facility] was normal (report available only) Plan: [...] of this encounter (statuses as of 01/30/2023) [facility]* Problem [...] - Not done as it will not manager exchange (same duration of ABx treatment) Cholelithiasis with [...] 06/24/2016 - Decreased Flatulence - KUB at [facility] was normal (report available only) Plan: [...] of this encounter (statuses as of 02/19/2023) [facility]* Problem [...] - Not done as it will not manager exchange (same duration of ABx treatment) Cholelithiasis with [...] 06/24/2016 - Decreased Flatulence - KUB at [facility] was normal (report available only) Plan: [...] of this encounter (statuses as of 03/17/2023) [facility]* Problem [...] - Not done as it will not manager exchange (same duration of ABx treatment) Cholelithiasis with [...] 06/24/2016 - Decreased Flatulence - KUB at [facility] was normal (report available only) Plan: [...] of this encounter (statuses as of 03/31/2023) [facility]* Problem [...] - Not done as it will not manager exchange (same duration of ABx treatment) Cholelithiasis with [...] 06/24/2016 - Decreased Flatulence - KUB at [facility] was normal (report available only) Plan: [...] of this encounter (statuses as of 06/11/2023) [facility] N[facility]* Problem [...] - Not done as it will not manager exchange (same duration of ABx treatment) Cholelithiasis with [...] 06/24/2016 - Decreased Flatulence - KUB at [facility] was normal (report available only) Plan: [...] of this encounter (statuses as of 06/15/2023) [facility]* Problem [...] - Not done as it will not manager exchange (same duration of ABx treatment) Cholelithiasis with [...] 06/24/2016 - Decreased Flatulence - KUB at [facility] was normal (report available only) Plan: [...] of this encounter (statuses as of 06/16/2023) [facility] N[facility]* Problem [...] - Not done as it will not manager exchange (same duration of ABx treatment) Cholelithiasis with [...] 06/24/2016 - Decreased Flatulence - KUB at [facility] was normal (report available only) Plan: [...] of this encounter (statuses as of 06/17/2023) [facility] N[facility]* Problem [...] - Not done as it will not manager exchange (same duration of ABx treatment) Cholelithiasis with [...] 06/24/2016 - Decreased Flatulence - KUB at [facility] was normal (report available only) Plan: [...] of this encounter (statuses as of 06/21/2023) [facility]* Problem [...] - Not done as it will not manager exchange (same duration of ABx treatment) Cholelithiasis with [...] 06/24/2016 - Decreased Flatulence - KUB at [facility] was normal (report available only) Plan: [...] of this encounter (statuses as of 06/28/2023) [facility] N[facility]* Problem [...] - Not done as it will not manager exchange (same duration of ABx treatment) Cholelithiasis with [...] 06/24/2016 - Decreased Flatulence - KUB at [facility] was normal (report available only) Plan: [...] of this encounter (statuses as of 07/20/2023) [facility]* Problem [...] - Not done as it will not manager exchange (same duration of ABx treatment) Cholelithiasis with [...] 06/24/2016 - Decreased Flatulence - KUB at [facility] was normal (report available only) Plan: [...] of this encounter (statuses as of 07/26/2023) [facility] N[facility]* Problem [...] - Not done as it will not manager exchange (same duration of ABx treatment) Cholelithiasis with [...] 06/24/2016 - Decreased Flatulence - KUB at [facility] was normal (report available only) Plan: [...] of this encounter (statuses as of 07/27/2023) [facility] N[facility]ative* Problem [...] - Not done as it will not manager exchange (same duration of ABx treatment) Cholelithiasis with [...] 06/24/2016 - Decreased Flatulence - KUB at [facility] was normal (report available only) Plan: [...] of this encounter (statuses as of 08/06/2023) [facility]* Diagnosis Essential hypertension, benign- Primary Elevated glucose Other abnormal glucose documented [facility] this encounter [facility]* Diagnosis Chronic low back pain with sciatica, sciatica laterality unspecified, unspecified back pain laterality documented [facility] this encounter [facility]* Diagnosis Chronic obstructive pulmonary disease, unspecified COPD type (HCC) documented [facility] this encounter [facility]* Diagnosis Chronic obstructive pulmonary disease, unspecified COPD type (HCC)- Primary Chronic low back pain with sciatica, sciatica laterality unspecified, unspecified back pain laterality Essential hypertension, benign Uncomplicated asthma, unspecified asthma severity, unspecified whether persistent Generalized anxiety disorder documented [facility] this encounter [facility]* Diagnosis Chronic low back pain with sciatica, sciatica laterality unspecified, unspecified back pain laterality documented [facility]* Diagnosis Chronic obstructive pulmonary disease, unspecified COPD type (HCC)- Primary documented [facility]* Diagnosis Chronic low back pain with sciatica, sciatica laterality unspecified, unspecified back pain laterality [facility]* Diagnosis Chronic obstructive pulmonary disease, unspecified COPD type (HCC) documented in this encounter [facility] note* Diagnosis Stage 3 severe COPD by GOLD classification ([facility])- Primary Chronic respiratory failure with hypoxia (HCC) Chronic respiratory failure documented in this encounter [facility] note* Diagnosis Stage 3 severe COPD by GOLD classification ([facility])- Primary Chronic low back pain with sciatica, sciatica laterality unspecified, unspecified back pain laterality Chronic respiratory failure with hypoxia (HCC) Chronic respiratory failure Essential hypertension, benign Generalized anxiety disorder Tobacco use disorder documented in this encounter [facility] note* Diagnosis Chronic obstructive pulmonary disease, unspecified COPD type (HCC) Uncomplicated asthma, unspecified asthma severity, unspecified whether persistent documented in this encounter [facility] note* Diagnosis Esophageal reflux documented in this encounter [facility] note* Diagnosis Generalized osteoarthrosis, involving multiple sites documented in this encounter [facility] note* Diagnosis Generalized osteoarthrosis, involving multiple sites documented in this encounter [facility] note* Diagnosis Screening for colon cancer- Primary Special screening for malignant neoplasms, colon documented in this encounter [facility] note* Diagnosis Chronic low back pain with sciatica, sciatica laterality unspecified, unspecified back pain laterality- Primary Generalized osteoarthrosis, involving multiple sites Generalized anxiety disorder Depression, unspecified depression type Essential hypertension, benign Elevated glucose Other abnormal glucose Stage 3 severe COPD by GOLD classification ([facility]) Gastroesophageal reflux disease, unspecified whether esophagitis present Chronic obstructive pulmonary disease, unspecified COPD type (HCC) Uncomplicated asthma, unspecified asthma severity, unspecified whether persistent Tobacco use disorder Need for influenza vaccination Need for prophylactic vaccination and inoculation against influenza Encounter for medication monitoring Encounter for therapeutic drug monitoring documented in this encounter [facility] note* Diagnosis Thrush, oral Candidiasis of mouth documented in this encounter [facility] note* Diagnosis Encounter for screening mammogram for breast cancer documented in this encounter [facility] note* Diagnosis Onset Date Resolution Status COPD (chronic obstructive pulmonary disease) acute Hypoxia acute Respiratory insufficiency ac [place] Viral URI with cough acute COPD with acute exacerbation [facility] Work Phone: Evaluation note* Diagnosis Obstructive chronic bronchitis with exacerbation (HCC)- Primary Obstructive chronic bronchitis with exacerbation Stage 3 severe COPD by GOLD classification ([facility]) Cigarette smoker Tobacco use disorder Chronic respiratory failure with hypoxia (HCC) Chronic [facility] Diagnosis Stage 3 severe COPD by GOLD classification (HCC)- Primary Essential hypertension, benign Cigarette smoker Tobacco use disorder Generalized anxiety disorder Chronic low back pain with sciatica, sciatica laterality unspecified, unspecified back pain laterality [facility] Diagnosis Chronic low back pain with sciatica, sciatica laterality unspecified, unspecified back pain laterality [facility] Diagnosis Chronic low back pain with sciatica, sciatica laterality unspecified, unspecified back pain laterality Tobacco use disorder [facility] Diagnosis Bronchitis Bronchitis, not specified as acute or chronic [facility] Diagnosis Generalized osteoarthrosis, involving multiple sites [facility] Diagnosis Chronic low back pain with sciatica, sciatica laterality unspecified, unspecified back pain laterality [facility] Diagnosis Stage 3 severe COPD by GOLD classification ([facility])- Primary Generalized osteoarthrosis, involving multiple sites Chronic low back pain with sciatica, sciatica laterality unspecified, unspecified back pain laterality Essential hypertension, benign Tobacco use disorder Dysthymic disorder [facility] Diagnosis Chronic low back pain with sciatica, sciatica laterality unspecified, unspecified back pain laterality [facility] Diagnosis Chronic low back pain with sciatica, sciatica laterality unspecified, unspecified back pain laterality Chronic obstructive pulmonary disease, unspecified COPD type (HCC) [facility] Diagnosis Stage 3 severe COPD by GOLD classification (HCC) [facility] Diagnosis Chronic low back pain with sciatica, sciatica laterality unspecified, unspecified back pain laterality [facility] Diagnosis Oral infection- Primary Other and unspecified diseases of the oral soft tissues [facility] Diagnosis Chronic low back pain [...] Candidiasis of mouth [facility]* Diagnosis Generalized osteoarthrosis, involving multiple sites [facility]* Diagnosis Encounter for screening mammogram for breast cancer documented in this encounter [facility] note* Diagnosis Chronic low back pain with sciatica, sciatica laterality unspecified, unspecified back pain laterality [facility]* Diagnosis Esophageal reflux [facility] Diagnosis Chronic obstructive pulmonary disease, unspecified COPD type (HCC)- Primary Chronic low back pain with sciatica, sciatica laterality unspecified, unspecified back pain laterality Essential hypertension, benign Generalized anxiety disorder Depression, unspecified depression type Gastroesophageal reflux disease without esophagitis Esophageal reflux Thrush, oral Candidiasis of mouth Tobacco use disorder Screening for colon cancer Special screening for malignant neoplasms, colon [facility]* Diagnosis Chronic low back pain with sciatica, sciatica laterality unspecified, unspecified back pain laterality [facility] Author José Smith [facility] July 20, 2023 4:55am Note Date/Time July 20, 2023 4:2 4am [facility] Medical Records Department [address] [place] [id number] H&P Exam - Hospitalist 07/20/23 0406 MR#: [id number] Acct: [id number] Name: DENIA GONZALEZ Rep #:[id number] : 1955 68 From: José Abebe DO PCP: Dr. oYseph Fall MD Status:AD M IN Location: [facility] [id number] HPI - General General Date of Admission: [...] anxiety, GERD and OA who presents to [facility] ER complaining of shortness of breath, wheezing [...] exacerbation of COPD with clinical evidence of nhqxp-[id number]-zvdtsoz hypoxic respiratory insufficiency likely due to recent viral URI in the setting of ongoing tobacco abuse and she was then admitted to the general medical floor forongoing care for stay that is expected to be greater than 48 hours. [facility] Home Medications albuterol sulfate 90 mcg/actuation aerosol [...] % (Auto) 67.5, Lymph % (Auto) 23.7, Barron% (Auto) 7.6, Eos % (Auto) 0.6, Baso [...] needed nebulizers. Give Tylenol as needed for phng-xs-lqbphjwb(level 1- 5/10) pain or fever. Continue Percocet prn for severe (level 6-10/10) pain. Tobacco cessation will be strongly encouraged with nicotine patch offeredto control cravings. 2. Viral URI likely triggering #1 - Check viral respiratory panel and placed oncontact and droplet precautions until confirmed negative. 3. Pfrek-fy-qfgxqxq hypoxic respiratory insufficiency arising from #1 & [...] 55 minutes. Charges/Coding Visit Charges Inpatient E&M: 66996 Init Hosp L2 07/20/23 8750 <Electronically signed by José Cunningham DO> Cosigner Signature (if applicable): CC: Dr. José Cunningham DO; Dr. Yoseph Fall MD~ Signed [facility] Work Phone: Hospital Discharge instructions Additional Instructions [...] needed for your shortness of breath and wheezing.[facility] Work Phone: Reason for referral (narrative)* Outpatient Procedure (Routine) - Pending Review Specialty Diagnoses / Procedures Referred By Jalyn peters Referred To Contact [facility] Diagnoses Chronic obstructive pulmonary disease, unspecified COPD type (HCC) Procedures OXIMETRY WITH AMBULATION NONINVASIVE EAR/PULSE OXIMETRY MULTIPLE Michelle Marie MD [address] [place] [address] [facility] [place] [address] [place] [address] Referral ID Status Reason Start Date Expiration Date Visits Requested Visits Authorized [id number] Pending Review Auto-Generat ed Referral 01/13/2022 02/12/2023 1 1 [facility] Diagnostic Procedure Only (Routine) - Pending Review Specialty Diagnoses / Procedures Referred By Contac t Referred To Contact [facility] Diagnoses Encounter for screening mammogram for breast cancer Procedures MICKIE SCREENING SCREENING MAMMOGRAPHY BI 2-VIEW BREAST INC CAD Yoseph Fall MD [address] [place] [address] [facility] [address] [place] [address] Referral ID Status Reason Start Date Expiration Date Visits Requested Visits Authorized [id number] Pending Review Auto-Generat ed Referral 06/16/2023 07/15/2024 1 1 [facility] Advance Directives Documents on File Type Date Recorded 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 Advance Directive(s) 08/04/2016 2:40 PM Advance Directive(s) 08/04/2016 3:52 PM Advance Directive(s) 06/21/2016 6:38 PM Documents on File Type Date Recorded 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 Advance Directive(s) 08/04/2016 3:52 PM Documents on File Type Date Recorded 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 Advance Directive(s) 08/04/2016 3:52 PM Advance Directive Response Recorded Date/ Time Advance Directives No May 08, 2016 10:32am Living Will No July 20, 2023 5:03am Power of Pastoral Counselor No July 19 5:03am Chief Complaint and Reason for Visit Chief Complaint ACUTE EXACERBATION O F COPD WITH [id number] Reason for Visit COPD (chronic obstru ctive pulmonary disease) Hypoxia Respiratory insufficiency Viral URI with cough COPD with acute exacerbation Chief Complaint ACUTE EXACERBATION O F COPD WITH [id number] ACUTE EXACERBATION OF COPD WITH [id number] ACUTE EXACERBATION OF COPD WITH [id number] Reason for Visit COPD (chronic obstru ctive [...] Generalized osteoarthrosis, involving multiple sites Iman Person APRN.ORTHOTIST PROSTHETIST [address] [place] [address] Referral ID Status Reason Start Date Expiration Date V isits Requested Visits Authorized [id number] Pending Review 1 1 Specialty Diagnoses / Procedures Referred By Contac t Referred To Contact Diagnoses Generalized osteoarthrosis, involving multiple sites Yoseph Fall MD [address] [place] [address] Referral ID Status Reason Start Date Expiration Date V isits Requested Visits Authorized [id number] Pending Review 1 1 Referral ID Status Reason Start Date Expiration Date V isits Requested Visits Authorized [id number] Pending Review 1 1 Summary Purpose Additional Source Comments Source Comments (unrecognize d section and content) In the event this informatio n is protected by the Federal Confidentiality of Alcohol and Drug Abuse Patient Records regulations: The Federal rules restrict any use of the information to criminally investigate or prosecute any alcohol or drug abuse patient.[facility] the event this information is protected by the Federal Confidentiality of Alcohol and Drug Abuse Patient Records regulations: The Federal rules restrict any use of the information to criminally investigate or prosecute any alcohol or drug abuse patient.[facility] the event this information is protected by the Federal Confidentiality of Alcohol and Drug Abuse Patient Records regulations: The Federal rules restrict any use of the information to criminally investigate or prosecute any alcohol or drug abuse patient.[facility] the event this information is protected by the Federal Confidentiality of Alcohol and Drug Abuse Patient Records regulations: The Federal rules restrict any use of the information to criminally investigate or prosecute any alcohol or drug abuse patient.[facility] the event this information is protected by the Federal Confidentiality of Alcohol and Drug Abuse Patient Records regulations: The Federal rules restrict any use of the information to criminally investigate or prosecute any alcohol or drug abuse patient.[facility] the event this information is protected by the Federal Confidentiality of Alcohol and Drug Abuse Patient Records regulations: The Federal rules restrict any use of the information to criminally investigate or prosecute any alcohol or drug abuse patient.[facility] the event this information is protected by the Federal Confidentiality of Alcohol and Drug Abuse Patient Records regulations: The Federal rules restrict any use of the information to criminally investigate or prosecute any alcohol or drug abuse patient.[facility] the event this information is protected by the Federal Confidentiality of Alcohol and Drug Abuse Patient Records regulations: The Federal rules restrict any use of the information to criminally investigate or prosecute any alcohol or drug abuse patient.[facility] the event this information is protected by the Federal Confidentiality of Alcohol and Drug Abuse Patient Records regulations: The Federal rules restrict any use of the information to criminally investigate or prosecute any alcohol or drug abuse patient.[facility] the event this information is protected by the Federal Confidentiality of Alcohol and Drug Abuse Patient Records regulations: The Federal rules restrict any use of the information to criminally investigate or prosecute any alcohol or drug abuse patient.[facility] the event this information is protected by the Federal Confidentiality of Alcohol and Drug Abuse Patient Records regulations: The Federal rules restrict any use of the information to criminally investigate or prosecute any alcohol or drug abuse patient.[facility] the event this information is protected by the Federal Confidentiality of Alcohol and Drug Abuse Patient Records regulations: The Federal rules restrict any use of the information to criminally investigate or prosecute any alcohol or drug abuse patient.[facility] the event this information is protected by the Federal Confidentiality of Alcohol and Drug Abuse Patient Records regulations: The Federal rules restrict any use of the information to criminally investigate or prosecute any alcohol or drug abuse patient.[facility]In the event this information is protected by the Federal Confidentiality of Alcohol and Drug Abuse Patient Records regulations: The Federal rules restrict any use of the information to criminally investigate or prosecute any alcohol or drug abuse patient.[facility] the event this information is protected by the Federal Confidentiality of Alcohol and Drug Abuse Patient Records regulations: The Federal rules restrict any use of the information to criminally investigate or prosecute any alcohol or drug abuse patient.[facility] the event this information is protected by the Federal Confidentiality of Alcohol and Drug Abuse Patient Records regulations: The Federal rules restrict any use of the information to criminally investigate or prosecute any alcohol or drug abuse patient.[facility] the event this information is protected by the Federal Confidentiality of Alcohol and Drug Abuse Patient Records regulations: The Federal rules restrict any use of the information to criminally investigate or prosecute any alcohol or drug abuse patient.[facility] the event this information is protected by the Federal Confidentiality of Alcohol and Drug Abuse Patient Records regulations: The Federal rules restrict any use of the information to criminally investigate or prosecute any alcohol or drug abuse patient.[facility] the event this information is protected by the Federal Confidentiality of Alcohol and Drug Abuse Patient Records regulations: The Federal rules restrict any use of the information to criminally investigate or prosecute any alcohol or drug abuse patient.[facility] HospitalIn the event this information is protected by the Federal Confidentiality of Alcohol and Drug Abuse Patient Records regulations: The Federal rules restrict any use of the information to criminally investigate or prosecute any alcohol or drug abuse patient.[facility] the event this information is protected by the Federal Confidentiality of Alcohol and Drug Abuse Patient Records regulations: The Federal rules restrict any use of the information to criminally investigate or prosecute any alcohol or drug abuse patient.[facility] the event this information is protected by the Federal Confidentiality of Alcohol and Drug Abuse Patient Records regulations: The Federal rules restrict any use of the information to criminally investigate or prosecute any alcohol or drug abuse patient.[facility] the event this information is protected by the Federal Confidentiality of Alcohol and Drug Abuse Patient Records regulations: The Federal rules restrict any use of the information to criminally investigate or prosecute any alcohol or drug abuse patient.[facility] the event this information is protected by the Federal Confidentiality of Alcohol and Drug Abuse Patient Records regulations: The Federal rules restrict any use of the information to criminally investigate or prosecute any alcohol or drug abuse patient.[facility] Hospital[facility] the event this information is protected by the Federal Confidentiality of Alcohol and Drug Abuse Patient Records regulations: The Federal rules restrict any use of the information to criminally investigate or prosecute any alcohol or drug abuse patient.[facility] the event this information is protected by the Federal Confidentiality of Alcohol and Drug Abuse Patient Records regulations: The Federal rules restrict any use of the information to criminally investigate or prosecute any alcohol or drug abuse patient.[facility]In the event this information is protected by the Federal Confidentiality of Alcohol and Drug Abuse Patient Records regulations: The Federal rules restrict any use of the information to criminally investigate or prosecute any alcohol or drug abuse patient.[facility] the event this information is protected by the Federal Confidentiality of Alcohol and Drug Abuse Patient Records regulations: The Federal rules restrict any use of the information to criminally investigate or prosecute any alcohol or drug abuse patient.[facility]In the event this information is protected by the Federal Confidentiality of Alcohol and Drug Abuse Patient Records regulations: The Federal rules restrict any use of the information to criminally investigate or prosecute any alcohol or drug abuse patient.[facility]In the event this information is protected by the Federal Confidentiality of Alcohol and Drug Abuse Patient Records regulations: The Federal rules restrict any use of the information to criminally investigate or prosecute any alcohol or drug abuse patient.[facility]In the event this information is protected by the Federal Confidentiality of Alcohol and Drug Abuse Patient Records regulations: The Federal rules restrict any use of the information to criminally investigate or prosecute any alcohol or drug abuse patient.[facility]In the event this information is protected by the Federal Confidentiality of Alcohol and Drug Abuse Patient Records regulations: The Federal rules restrict any use of the information to criminally investigate or prosecute any alcohol or drug abuse patient.[facility] HospitalIn the event this information is protected by the Federal Confidentiality of Alcohol and Drug Abuse Patient Records regulations: The Federal rules restrict any use of the information to criminally investigate or prosecute any alcohol or drug abuse patient.[facility] HospitalIn the event this information is protected by the Federal Confidentiality of Alcohol and Drug Abuse Patient Records regulations: The Federal rules restrict any use of the information to criminally investigate or prosecute any alcohol or drug abuse patient.[facility] HospitalIn the event this information is protected by the Federal Confidentiality of Alcohol and Drug Abuse Patient Records regulations: The Federal rules restrict any use of the information to criminally investigate or prosecute any alcohol or drug abuse patient.[facility] HospitalIn the event this information is protected by the Federal Confidentiality of Alcohol and Drug Abuse Patient Records regulations: The Federal rules restrict any use of the information to criminally investigate or prosecute any alcohol or drug abuse patient.[facility] HospitalIn the event this information is protected by the Federal Confidentiality of Alcohol and Drug Abuse Patient Records regulations: The Federal rules restrict any use of the information to criminally investigate or prosecute any alcohol or drug abuse patient.[facility] HospitalIn the event this information is protected by the Federal Confidentiality of Alcohol and Drug Abuse Patient Records regulations: The Federal rules restrict any use of the information to criminally investigate or prosecute any alcohol or drug abuse patient.[facility]In the event this information is protected by the Federal Confidentiality of Alcohol and Drug Abuse Patient Records regulations: The Federal rules restrict any use of the information to criminally investigate or prosecute any alcohol or drug abuse patient.[facility] HospitalIn the event this information is protected by the Federal Confidentiality of Alcohol and Drug Abuse Patient Records regulations: The Federal rules restrict any use of the information to criminally investigate or prosecute any alcohol or drug abuse patient.[facility] HospitalIn the event this information is protected by the Federal Confidentiality of Alcohol and Drug Abuse Patient Records regulations: The Federal rules restrict any use of the information to criminally investigate or prosecute any alcohol or drug abuse patient.[facility] HospitalIn the event this information is protected by the Federal Confidentiality of Alcohol and Drug Abuse Patient Records regulations: The Federal rules restrict any use of the information to criminally investigate or prosecute any alcohol or drug abuse patient.[facility] HospitalIn the event this information is protected by the Federal Confidentiality of Alcohol and Drug Abuse Patient Records regulations: The Federal rules restrict any use of the information to criminally investigate or prosecute any alcohol or drug abuse patient.[facility] HospitalIn the event this information is protected by the Federal Confidentiality of Alcohol and Drug Abuse Patient Records regulations: The Federal rules restrict any use of the information to criminally investigate or prosecute any alcohol or drug abuse patient.[facility] HospitalIn the event this information is protected by the Federal Confidentiality of Alcohol and Drug Abuse Patient Records regulations: The Federal rules restrict any use of the information to criminally investigate or prosecute any alcohol or drug abuse patient.[facility] HospitalIn the event this information is protected by the Federal Confidentiality of Alcohol and Drug Abuse Patient Records regulations: The Federal rules restrict any use of the information to criminally investigate or prosecute any alcohol or drug abuse patient.[facility] HospitalIn the event this information is protected by the Federal Confidentiality of Alcohol and Drug Abuse Patient Records regulations: The Federal rules restrict any use of the information to criminally investigate or prosecute any alcohol or drug abuse patient.[facility] HospitalIn the event this information is protected by the Federal Confidentiality of Alcohol and Drug Abuse Patient Records regulations: The Federal rules restrict any use of the information to criminally investigate or prosecute any alcohol or drug abuse patient.[facility] HospitalIn the event this information is protected by the Federal Confidentiality of Alcohol and Drug Abuse Patient Records regulations: The Federal rules restrict any use of the information to criminally investigate or prosecute any alcohol or drug abuse patient.[facility] HospitalIn the event this information is protected by the Federal Confidentiality of Alcohol and Drug Abuse Patient Records regulations: The Federal rules restrict any use of the information to criminally investigate or prosecute any alcohol or drug abuse patient.[facility] HospitalIn the event this information is protected by the Federal Confidentiality of Alcohol and Drug Abuse Patient Records regulations: The Federal rules restrict any use of the information to criminally investigate or prosecute any alcohol or drug abuse patient.[facility] HospitalIn the event this information is protected by the Federal Confidentiality of Alcohol and Drug Abuse Patient Records regulations: The Federal rules restrict any use of the information to criminally investigate or prosecute any alcohol or drug abuse patient.[facility] HospitalIn the event this information is protected by the Federal Confidentiality of Alcohol and Drug Abuse Patient Records regulations: The Federal rules restrict any use of the information to criminally investigate or prosecute any alcohol or drug abuse patient.[facility] HospitalIn the event this information is protected by the Federal Confidentiality of Alcohol and Drug Abuse Patient Records regulations: The Federal rules restrict any use of the information to criminally investigate or prosecute any alcohol or drug abuse patient.[facility] HospitalIn the event this information is protected by the Federal Confidentiality of Alcohol and Drug Abuse Patient Records regulations: The Federal rules restrict any use of the information to criminally investigate or prosecute any alcohol or drug abuse patient.[facility] HospitalIn the event this information is protected by the Federal Confidentiality of Alcohol and Drug Abuse Patient Records regulations: The Federal rules restrict any use of the information to criminally investigate or prosecute any alcohol or drug abuse patient.[facility] HospitalIn the event this information is protected by the Federal Confidentiality of Alcohol and Drug Abuse Patient Records regulations: The Federal rules restrict any use of the information to criminally investigate or prosecute any alcohol or drug abuse patient.[facility] HospitalIn the event this information is protected by the Federal Confidentiality of Alcohol and Drug Abuse Patient Records regulations: The Federal rules restrict any use of the information to criminally investigate or prosecute any alcohol or drug abuse patient.[facility] HospitalIn the event this information is protected by the Federal Confidentiality of Alcohol and Drug Abuse Patient Records regulations: The Federal rules restrict any use of the information to criminally investigate or prosecute any alcohol or drug abuse patient.[facility] HospitalIn the event this information is protected by the Federal Confidentiality of Alcohol and Drug Abuse Patient Records regulations: The Federal rules restrict any use of the information to criminally investigate or prosecute any alcohol or drug abuse patient.[facility] HospitalIn the event this information is protected by the Federal Confidentiality of Alcohol and Drug Abuse Patient Records regulations: The Federal rules restrict any use of the information to criminally investigate or prosecute any alcohol or drug abuse patient.[facility] HospitalIn the event this information is protected by the Federal Confidentiality of Alcohol and Drug Abuse Patient Records regulations: The Federal rules restrict any use of the information to criminally investigate or prosecute any alcohol or drug abuse patient.[facility] HospitalIn the event this information is protected by the Federal Confidentiality of Alcohol and Drug Abuse Patient Records regulations: The Federal rules restrict any use of the information to criminally investigate or prosecute any alcohol or drug abuse patient.[facility] HospitalIn the event this information is protected by the Federal Confidentiality of Alcohol and Drug Abuse Patient Records regulations: The Federal rules restrict any use of the information to criminally investigate or prosecute any alcohol or drug abuse patient.[facility] HospitalIn the event this information is protected by the Federal Confidentiality of Alcohol and Drug Abuse Patient Records regulations: The Federal rules restrict any use of the information to criminally investigate or prosecute any alcohol or drug abuse patient.[facility] HospitalIn the event this information is protected by the Federal Confidentiality of Alcohol and Drug Abuse Patient Records regulations: The Federal rules restrict any use of the information to criminally investigate or prosecute any alcohol or drug abuse patient.[facility] HospitalIn the event this information is protected by the Federal Confidentiality of Alcohol and Drug Abuse Patient Records regulations: The Federal rules restrict any use of the information to criminally investigate or prosecute any alcohol or drug abuse patient.[facility] HospitalIn the event this information is protected by the Federal Confidentiality of Alcohol and Drug Abuse Patient Records regulations: The Federal rules restrict any use of the information to criminally investigate or prosecute any alcohol or drug abuse patient.[facility] HospitalIn the event this information is protected by the Federal Confidentiality of Alcohol and Drug Abuse Patient Records regulations: The Federal rules restrict any use of the information to criminally investigate or prosecute any alcohol or drug abuse patient.[facility] HospitalIn the event this information is protected by the Federal Confidentiality of Alcohol and Drug Abuse Patient Records regulations: The Federal rules restrict any use of the information to criminally investigate or prosecute any alcohol or drug abuse patient.[facility] HospitalIn the event this information is protected by the Federal Confidentiality of Alcohol and Drug Abuse Patient Records regulations: The Federal rules restrict any use of the information to criminally investigate or prosecute any alcohol or drug abuse patient.[facility] HospitalIn the event this information is protected by the Federal Confidentiality of Alcohol and Drug Abuse Patient Records regulations: The Federal rules restrict any use of the information to criminally investigate or prosecute any alcohol or drug abuse patient.[facility] Care Teams (unrecognized sec tion and content) Solution Architect Relationship Specialty Start Date End Date Yoseph Fall MD [address] [place] [address] PCP - General 04/17/09 Solution Architect Relationship Specialty Start Date End Date Yoseph Fall MD [address] [place] [address] PCP - General 04/17/09 Solution Architect Relationship Specialty Start Date End Date Yoseph Fall MD [address] [place] [address] PCP - General 04/17/09 Solution Architect Relationship Specialty Start Date End Date Yoseph Fall MD [facility] [place] [address] PCP - General 04/17/09 Solution Architect Relationship Specialty Start Date End Date Yoseph Fall MD [address] [place] [address] PCP - General 04/17/09 Solution Architect Relationship Specialty Start Date End Date Yoseph Fall MD [address] [place] [address] PCP - General 04/17/09 Solution Architect Relationship Specialty Start Date End Date Yoseph Fall MD [address] [facility] [place] [address] PCP - General 04/17/09 Solution Architect Relationship Specialty [place] [address] [place] [address], [place] [address] PCP - General 04/17/09 Solution Architect Relationship Specialty Start Date End Date Yoseph Fall MD [address] [place] [address], [place] [address] PCP - General 04/17/09 Solution Architect Relationship Specialty Start Date End Date Yoseph Fall MD [address] [place] [address], [place] [address] PCP - General 04/17/09 Solution Architect Relationship Specialty Start Date End Date Yoseph Fall MD [address] [place] [address], [place] [address] PCP - General 04/17/09 Solution Architect Relationship Specialty Start Date End Date Yoseph Fall MD [address] [place] [address], [place] [address] PCP - General 04/17/09 Solution Architect Relationship Specialty Start Date End Date Yoseph Fall MD [facility] [place] [address] PCP - General 04/17/09 Solution Architect Relationship Specialty Start Date End Date Yoseph Fall MD [address] [place] [address], [place] [address] PCP - General 04/17/09 Solution Architect Relationship Specialty Start Date End Date Yoseph Fall MD [address] [place] [address], [place] [address] PCP - General 04/17/09 Solution Architect Relationship Specialty Start Date End Date Yoseph Fall MD [address] [place] [address] PCP - General 04/17/09 Solution Architect Relationship Specialty Start Date End Date Yoseph Fall MD [address] [place] [address] PCP - General 04/17/09 Solution Architect Relationship Specialty Start Date End Date Yoseph Fall MD [address] [place] [address] PCP - General 04/17/09 Solution Architect Relationship Specialty Start Date End Date Yoseph Fall MD [address] [place] [address] PCP - General 04/17/09 Solution Architect Relationship Specialty Start Date End Date Yoseph Fall MD [address] [place] [address] PCP - General 04/17/09 Solution Architect Relationship Specialty Start Date End Date Yoseph Fall MD [address] [place] [address] PCP - General 04/17/09 Solution Architect Relationship Specialty Start Date End Date Yoseph Fall MD [address] [place] [address] PCP - General 04/17/09 Solution Architect Relationship Specialty Start Date End Date Yoseph Fall MD [address] [place] [address] PCP - General 04/17/09 Solution Architect Relationship Specialty Start Date End Date Yoseph Fall MD [address] [place] [address] PCP - General 04/17/09 Solution Architect Relationship Specialty Start Date End Date Yoseph Fall MD [address] [place] [address] PCP - General 04/17/09 Solution Architect Relationship Specialty Start Date End Date Yoseph Fall MD [address] [place] [address] PCP - General 04/17/09 Team Status: Active Member Role Status Dates Dr. Yoseph Fall MD Primary Care Provider Active Team Status: Active Member Role Status Dates Dr. Yoseph Fall MD Primary Care Provider Active Dr. Dallas Mena MD Emergency Provider Active Dr. José Cunningham DO Admit Provider, Attending Pr ovider Active Solution Architect Relationship Specialty Start Date End Date Yoseph Fall MD [address] [place], [place] [address] PCP - General 04/17/09 Team Status: Active [...] Dr. Jan Bolanos MD Attending Provider Active Solution Architect Relationship Specialty Start Date End Date Yoseph Fall MD [address] [place], [place] [id number] PCP - General 04/17/09 Solution Architect Relationship Specialty Start Date End Date Yoseph Fall MD [address] [place], [place] [address] PCP - General 04/17/09 Solution Architect Relationship Specialty Start Date End Date Yoseph Fall MD [address] [place] [address] PCP - General 04/17/09 Solution Architect Relationship Specialty Start Date End Date Yoseph Fall MD [address] [place] [address] PCP - General 04/17/09 Solution Architect Relationship Specialty Start Date End Date Yoseph Fall MD [address] [place] [address] PCP - General 04/17/09 Solution Architect Relationship Specialty Start Date End Date Yoseph Fall MD [address] [place] [address] PCP - General 04/17/09 Solution Architect Relationship Specialty Start Date End Date Yoseph Fall MD [address] [place] [address] PCP - General 04/17/09 Iman Person APRN.ORTHOTIST PROSTHETIST [address] [place] [address] [facility] 04/02/24 Solution Architect Relationship Specialty Start Date End Date Yoseph Fall MD [address] [place] [address] PCP - General 04/17/09 Iman Person APRN.ORTHOTIST PROSTHETIST [address] [place] [address] Wheel Polisher [facility] 04/02/24 Solution Architect Relationship Specialty Start Date End Date Yoseph Fall MD [address] [place] [address] PCP - General 04/17/09 Iman Person APRN.ORTHOTIST PROSTHETIST [address] [place] [address] Wheel Polisher [facility] Medicine 04/02/24 Nelson Robert APRN.ORTHOTIST PROSTHETIST [address] [place] [address] [facility] 04/11/24 Solution Architect Relationship Specialty Start Date End Date Yoseph Fall MD [address] [place] [address] PCP - General 04/17/09 Iman Person PAPERHANGER APPRENTICE.ORTHOTIST PROSTHETIST [address] [place] [address] [facility] 04/02/24 Nelson Robert PAPERHANGER APPRENTICE.ORTHOTIST PROSTHETIST [address] [place] [address] [facility] 04/11/24 Solution Architect Relationship Specialty Start Date End Date Yoseph Fall MD [address] [place] [address] PCP - General 04/17/09 Iman Person APRN.ORTHOTIST PROSTHETIST [address] [facility] [place] [address] [facility] 04/02/24 Nelson Robert APRN.ORTHOTIST PROSTHETIST [address] [place] [address] [facility] 04/11/24 Solution Architect Relationship Specialty Start Date End Date Yoseph Fall MD [address] [place] [address] PCP - General 04/17/09 Iman Person APRN.ORTHOTIST PROSTHETIST [address] [place] [address] [facility] 04/02/24 Nelson Robert APRN.ORTHOTIST PROSTHETIST [address] [place] [address] Wheel Polisher [facility] 04/11/24 Solution Architect Relationship Specialty Start Date End Date Yoseph Fall MD [address] [place] [address] PCP - General 04/17/09 Iman Person APRN.ORTHOTIST PROSTHETIST [address] [place] [address] [facility] 04/02/24 Nelson Robert APRN.ORTHOTIST PROSTHETIST [address] [place] [address] [facility] 04/11/24 Solution Architect Relationship Specialty Start Date End Date Yoseph Fall MD [address] [facility] [place] [address] PCP - General 04/17/09 Iman Person APRN.ORTHOTIST PROSTHETIST [address] [facility] [place] [address] [facility] 04/02/24 Nelson Robert APRN.ORTHOTIST PROSTHETIST [address] [facility] [place] [address] [facility] 04/11/24 Solution Architect Relationship Specialty Start Date End Date Yoseph Fall MD [address] [facility] [place] [address] PCP - General 04/17/09 Iman Person APRN.ORTHOTIST PROSTHETIST [address] [facility] [place] [address] [facility] 04/02/24 Nelson Robert APRN.ORTHOTIST PROSTHETIST [address] [facility] [place] [address] Wheel Polisher [facility] 04/11/24 Solution Architect Relationship Specialty Start Date End Date Yoseph Fall MD [address] [facility] [place] [address] PCP - General 04/17/09 Iman Person APRN.ORTHOTIST PROSTHETIST [address] [facility] [place] [address] [facility] 04/02/24 Nelson Robert APRN.ORTHOTIST PROSTHETIST [address] [facility] [place] [address] [facility] 04/11/24 Solution Architect Relationship Specialty Start Date End Date Yoseph Fall MD [address] [place] [address] PCP - General 04/17/09 Iman Person APRN.ORTHOTIST PROSTHETIST [address] [place] [address] [facility] 04/02/24 Nelson Robert APRN.ORTHOTIST PROSTHETIST [address] [place] [address] [facility] 04/11/24 Solution Architect Relationship Specialty Start Date End Date Yoseph Fall MD [address] [place] [address] PCP - General 04/17/09 Iman Person APRN.ORTHOTIST PROSTHETIST [address] [place] [address] [facility] 04/02/24 Nelson Robert APRN.ORTHOTIST PROSTHETIST [address] [place] [address] [facility] 04/11/24 Solution Architect Relationship Specialty Start Date End Date Yoseph Fall MD [address] [place] [address] PCP - General 04/17/09 Iman Person APRN.ORTHOTIST PROSTHETIST [address] [place] [address] [facility] 04/02/24 Nelson Robert APRN.ORTHOTIST PROSTHETIST [address] [place], [place] [address] [facility] 04/11/24 Solution Architect Relationship Specialty Start Date End Date Yoseph Fall MD [address] [place], [place] [address] PCP - General 04/17/09 Iman Person APRN.ORTHOTIST PROSTHETIST [address] [place] [address] [facility] 04/02/24 Nelson Robert APRN.ORTHOTIST PROSTHETIST [address] [place], [place] [address] [facility] 04/11/24 Reason for Visit (unrecogniz ed [...] OXIMETRY Michelle Mendoza MD [address] [place] [address] [facility] [place] [address] [place] [address] Referral ID Status Reason Start Date Expiration Date V isits Requested Visits Authorized [id number] Closed Auto-Generate d Referral 01/13/2022 02/12/2023 1 [...] and content) DATE CREATED AUTHOR 11/11/2023 [facility] DATE CREATED AUTHOR AUTHOR'S SHANIQUEIZ ATION 07/26/2024 [facility] FOR RECORDS PERTAINING TO PATIENTS WHO ARE [...] BE BASED ON THE PRIMARY CLINICAL RECORDS. [facility] [employer] [facility]. provides no warranty or guarantee of the accuracy or completeness of information in this document.
[2024-09-29] MEDS: LORazepam 0.5 MG Tablet PO ×2 (05:44→21:35)
[2024-09-29] MEDS: Pramipexole Di-HCl 0.125 MG Tablet PO ×2 (05:44→21:35)
[2024-09-29] MEDS: Acetaminophen 325 MG Tablet 650 MG PO ×2 (05:44→21:47)
[2024-09-29 08:02] LABS: Procalcitonin 0.04 ng/mL (<=0.10)
[2024-09-29] MEDS: Verapamil SR 180 MG CAPSULE 360 MG PO (09:04)
[2024-09-29] MEDS: Enoxaparin 40 MG/0.4 ML Syringe SC (09:05)
[2024-09-29] MEDS: Montelukast 10 MG Tablet PO (09:06)
[2024-09-29] MEDS: Pantoprazole Sodium 20 MG Tablet PO (09:06)
[2024-09-29] MEDS: Sertraline 100 MG Tablet PO (09:06)
--- NOTE | 2024-09-29 13:16 | CASEMGMT ---
Addendum entered by Satya Altamirano 09/29/24 13:30: [facility] reports that the pt is not active with their Palliative Care services Original Note: RN CM Assessment Face to Face with patient for initial transition planning/care coordination assessment. RN CM introduced self and role at [facility], pt voices understanding. Pt is A&Ox4 and is resting comfortably in bed and is calm. Pt's SO at bedside. Care providers, pharmacy, and demographics verified. Admitting dx: COPD Exacerbation LACE Strata: 2 PCP: Arnulfo Fall Specialists: Denies Preferred Pharmacy: [facility] Insurance: [employer], [employer] Prescription Benefit: Yes LNOK: Mike (SO), Nathaniel (Son) Living Arrangements: Pt lives with her SO in a single story home with a basement and 2 steps to enter ADLs/IADLs: Pt requires assistance and has support through her SO as well as her DIL who is the pt's pvt duty aide. The pt's DIL helps care for the pt q M-F x 8 hours per day Transportation: Pt does not drive. Pt's SO drives but states that the pt has not been out of the house since 2019 e/f doctor's appointments. Pt's SO states that he prefers the pt to go by ambulance if needed d/t the pt's oxygen demands DME: Home oxygen through [facility] in [place]. Verified that the pt's current home oxygen order states 2L continuous via [place]. Pt reports that she has a concentrator, portable tanks (SO can bring in at DC), pulse ox, inhaler, and nebulizer. Pt also states that she has a medical alert system, WC, BP Machine, Shower chair, grab bars, and raised toilet seat. HHC/SNF: Reports HH hx but cannot recall the name of the agency. Denies SNF hx or needs. Pt reports that she thinks that she is active with [facility]'s Palliative Care. E-Mail sent to [facility] for verification. Community Resources: Pt is active with [facility] and reports that her CM is Palma Anguiano. SW notified. Smoking: Pt states that she quit smoking last Wednesday and that this is the longest stretch that she has made it Pt?s goal: Home Plan: Home, follow for updated O2 Rx needs. 6-Click score is 16. At this time, the pt adamantly denies the need for SNF. This RN CM inquired if the pt would be interested in skilled HHC or OP Tx. Pt denies both. Pt states that she feels safe returning home with her SO and the Pvt Duty Aid once medically ready. Pt denies further concerns at this time. Report given to POULTRY EVISCERATOR SAM. Divya Altamirano RN, CM
[2024-09-29] MEDS: 0.9% Saline Lock 10 ML Syringe IV ×2 (15:00→21:47)
[2024-09-30] VITALS (13 sets, daily range): BP systolic 132–151; BP diastolic 80–84; PULSE 97–116; RESP 12–24; TEMP 36.5–37; O2SAT 93–99; BMI 27.5
[2024-09-30] MEDS: 0.9% Saline Lock 10 ML Syringe IV ×2 (05:39→20:54)
[2024-09-30 07:34] LABS: Absolute Lymphocyte Count 0.61 X10^3/uL (0.83-4.51); Absolute Neutrophil Count 6.8 X10^3/uL (2.0-7.7); Hematocrit 38.4 % (37-47); Hemoglobin 12.6 g/dL (12.0-15.0); Lymphocyte # 0.61 X10^3/ul (0.83-4.51); Mean Corp Hgb Conc 32.8 g/dL (32-36); Mean Corpuscular Hgb 27.9 pg (27.0-32.0); Monocyte# 0.27 X10^3/uL; Monocyte% 3.5 % (0-10); NRBC Flagged by Analyzer 0 % (0-5); Neutrophil # 6.76 X10^3/uL (2.7-7.7); Neutrophil % 88.1 % (47-70); Platelet Count 177 K/mm3 (150-450); RBC Distribution Width SD 39.9 fl (35.1-43.9); Red Blood Count 4.52 M/mm3 (4.2-5.4); White Blood Count 7.7 K/mm3 (4.4-11.0)
[2024-09-30 08:09] LABS: ALB/GLOB Ratio 1.5 RATIO (0.9-2.4); AST(SGOT) 17 U/L (<=31); Alanine Aminotransfer ALT/SGPT 9 U/L (<=34); Albumin, Serum 3.8 g/dL (3.4-4.8); Alkaline Phosphatase 60 U/L (35-104); Anion Gap 10 (5-15); BUN 19 mg/dL (4-19); BUN/Creat Ratio 32.5 RATIO (10-20); Carbon Dioxide 33.3 mmol/L (21.0-32.0); Chloride 95 mmol/L (98-108); Creatinine, Serum 0.58 mg/dL (0.70-1.20); EST Glomerular Filtration Rate 98 (>60); Estimated Creatinine Clearance 65.06 ml/min (50-250); Globulin 2.5 g/dL (2.2-4.2); Glucose 127 mg/dL (70-99); Potassium 4.6 mmol/L (3.3-5.1); Protein, Total 6.3 g/dL (5.9-8.4); Sodium Level 138 mmol/L (133-145); Total Bilirubin 0.27 mg/dL (0.00-1.30)
[2024-09-30] MEDS: Enoxaparin 40 MG/0.4 ML Syringe SC (09:47)
[2024-09-30] MEDS: Verapamil SR 180 MG CAPSULE 360 MG PO (09:47)
[2024-09-30] MEDS: Montelukast 10 MG Tablet PO (09:49)
[2024-09-30] MEDS: Pantoprazole Sodium 20 MG Tablet PO (09:49)
[2024-09-30] MEDS: Sertraline 100 MG Tablet PO (09:49)
[2024-09-30] MEDS: Ipratropium/Albuterol Sulfate 3 ML AMPUL.NEB INHALATION ×3 (10:15→20:49)
--- NOTE | 2024-09-30 12:20 | PN.HOSP_ITS ---
Subjective Subjective No issues overnight, she still maintaining her oxygen saturations on 2 to 3 L nasal cannula. She has very little tolerance for BiPAP despite the fact that she is fairly significantly hypercapnic Objective Data Objective Data Vital Signs: Vital Signs Temp Pulse Resp BP Pulse Ox O2 Del Method O2 Flow Rate 97.7 F L 116 H 20 H 141/80 H 95 Nasal Cannula 3 09/30/24 09:41 09/30/24 10:15 09/30/24 10:15 09/30/24 09:41 09/30/24 09:41 09/30/24 10:00 09/30/24 10:00 FiO2 30 09/30/24 01:23 Oxygen Flow Rate (L/min) 3 Oxygen Delivery Method Nasal Cannula Weight: 161 lb 6.054 oz Body Mass Index (BMI) 27.5 Intake & Output: Intake and Output for Last 24 Hours 09/29/24 09/30/24 10/01/24 03:59 03:59 03:59 Intake Total 1000 / 1000 Output Total 0 / 0 Balance 1000 / 1000 Lab / Micro Data 09/30/24 07:00 09/30/24 07:00 Labs: Laboratory Results - last 24 hr 09/30/24 07:00: WBC 7.7, RBC 4.52, Hgb 12.6, Hct 38.4, MCV 85.0, MCH 27.9, MCHC 32.8, RDW Std Deviation 39.9, RDW Coeff of Augustin 13.0, Plt Count 177, MPV 10.0, Immature Gran % (Auto) 0.400, Neut % (Auto) 88.1 H, Lymph % (Auto) 8.0 L, [place] % (Auto) 3.5, Eos % (Auto) 0.0, Baso % (Auto) 0.0, Absolute Neuts (auto) 6.8, A bsolute Lymphs (auto) 0.61 L, Nucleated RBC % 0, Sodium 138, Potassium 4.6, C hloride 95 L, Carbon Dioxide 33.3 H, Anion Gap 10, BUN 19, Creatinine 0.58 L, Estim Creat Clear Calc 65.06, Est GFR (MDRD) Non-Af 98, BUN/Creatinine Ratio 32.5 H, Glucose 127 H, Calcium 9.0, Total Bilirubin 0.27, AST 17, ALT 9, Alkaline Phosphatase 60, Total Protein 6.3, Albumin 3.8, Globulin 2.5, Albumin/Globulin Ratio 1.5 Micro: Microbiology 09/29/24 06:05 Mucosa - Nasopharyngeal Respiratory Panel (PCR) - Final 09/29/24 02:30 Mucosa - Nose SARS-CoV-2, Influenza & RSV (PCR) - Final Physical Exam Narrative General: Alert, Oriented x3, Cooperative, No apparent distress HEENT: Atraumatic, PERRLA, EOMI, Normocephalic Oral: Moist Mucosa Neck: Supple, No JVD Lungs: Diminished, Normal air movement, No rhonchi, wheeze, No rales Cardiovascular: Regular rate, Regular Rhythm, Normal S1, Normal S2, No murmurs Abdomen: Soft, Non Tender, Non-Distended, No Hepato-splenomegaly Extremities: No edema, Capillary Refill Less than 3 Seconds Skin: No rashes, No breakdown Musculoskeletal: No Tenderness to Palpation of Joints or Extremities Neurological: No focal neurological deficits, Motor Exam 5/5 strength throughout, Sensory exam intact to light touch and pain Psych/Mental Status: Normal Affect, Appropriate Assessment & Plan Assessment/Plan (1) COPD with acute exacerbation: PLAN: Plan 1. Acute hypercapnic on chronic hypoxic respiratory failure secondary to COPD exacerbation ? pCO2 on ABG on admission was 79 however she refuses to wear her BiPAP ? Continue with breathing treatments and steroids ? No signs of an infectious etiology on imaging with no fever or leukocytosis however sputum cultures demonstrating possible Pseudomonas ? Continue with Levaquin #2. History non-small cell lung cancer: Patient diagnosed remotely, status post right lung lobectomy, considered in remission, encourage continued follow-up outpatient as previously arranged. #3. Hypertension: Continue home regimen including verapamil, PRN hydralazine. #4. Restless leg syndrome: Will continue patient on Requip regimen. #5. Anxiety and depression: Will continue patient on sertraline and low-dose lorazepam regimen. #6. Allergic rhinitis: Will continue patient home montelukast and fluticasone regimen. #7. Former alcohol abuse: Patient with previous heavy alcohol use, encourage continued sobriety. #8. Former tobacco use: Patient just recently quit approximately 3 weeks prior, had smoked in the past and quit previously but apparently it picked up again. Encourage continued tobacco cessation. #9. GERD: Will continue patient on PPI. DVT: Lovenox
[2024-09-30] MEDS: levoFLOXacin IV 750 MG/150 ML BAG 100 MG IV (13:52)
[2024-09-30] MEDS: Acetaminophen 325 MG Tablet 650 MG PO (13:52)
[2024-09-30] MEDS: guaiFENesin 10 ML UDC (200MG/10ML) 20 ML PO (16:39)
[2024-09-30] MEDS: LORazepam 0.5 MG Tablet PO (16:42)
[2024-09-30] MEDS: Pramipexole Di-HCl 0.125 MG Tablet PO (20:54)
[2024-09-30] MEDS: MELATONIN 3 MG TABLET PO (22:13)
[2024-10-01] VITALS (15 sets, daily range): BP systolic 123–140; BP diastolic 58–72; PULSE 93–109; RESP 18–26; TEMP 36.2–37; O2SAT 85–96; BMI 27.0
[2024-10-01 05:01] LABS: Absolute Lymphocyte Count 0.58 X10^3/uL (0.83-4.51); Absolute Neutrophil Count 7.6 X10^3/uL (2.0-7.7); Basophil# 0.01 X10^3/uL; Basophil% 0.1 % (0-1); Hematocrit 40.9 % (37-47); Hemoglobin 13.5 g/dL (12.0-15.0); Lymphocyte # 0.58 X10^3/ul (0.83-4.51); Lymphocyte % 6.8 % (19-41); Mean Corpuscular Hgb 27.6 pg (27.0-32.0); Mean Corpuscular Volume 83.5 fL (81-99); Mean Platelet Vol. 9.8 fl (6.2-12.0); Monocyte# 0.31 X10^3/uL; Monocyte% 3.6 % (0-10); NRBC Flagged by Analyzer 0 % (0-5); Neutrophil # 7.57 X10^3/uL (2.7-7.7); POSITIVE DIFFERENTIAL YES; Platelet Count 176 K/mm3 (150-450); RBC Distribution Width CV 12.9 % (11.6-14.6); RBC Distribution Width SD 39.2 fl (35.1-43.9); White Blood Count 8.5 K/mm3 (4.4-11.0)
[2024-10-01] MEDS: 0.9% Saline Lock 10 ML Syringe IV ×3 (05:21→21:13)
[2024-10-01 05:28] LABS: Anion Gap 10 (5-15); BUN 21 mg/dL (4-19); BUN/Creat Ratio 35.9 RATIO (10-20); Calcium,Total 9.2 mg/dL (7.6-11.0); Carbon Dioxide 34.2 mmol/L (21.0-32.0); Chloride 94 mmol/L (98-108); Creatinine, Serum 0.59 mg/dL (0.70-1.20); EST Glomerular Filtration Rate 97 (>60); Estimated Creatinine Clearance 65.06 ml/min (50-250); Glucose 111 mg/dL (70-99); Potassium 4.1 mmol/L (3.3-5.1); Sodium Level 138 mmol/L (133-145)
[2024-10-01] MEDS: Ipratropium/Albuterol Sulfate 3 ML AMPUL.NEB INHALATION ×4 (05:30→19:55)
[2024-10-01] MEDS: Verapamil SR 180 MG CAPSULE 360 MG PO ×2 (08:36→22:14)
[2024-10-01] MEDS: Sertraline 100 MG Tablet PO (08:36)
[2024-10-01] MEDS: Montelukast 10 MG Tablet PO (08:36)
[2024-10-01] MEDS: Enoxaparin 40 MG/0.4 ML Syringe SC (08:36)
[2024-10-01] MEDS: Pantoprazole Sodium 20 MG Tablet PO (08:37)
[2024-10-01] MEDS: levoFLOXacin IV 750 MG/150 ML BAG 100 MG IV (08:43)
--- NOTE | 2024-10-01 10:43 | PCM.PN.HOSP ---
Subjective Subjective Feels okay but not quite back to baseline. Objective Data Objective Data Vital Signs: Vital Signs Temp Pulse Resp BP Pulse Ox O2 Del Method O2 Flow Rate 97.1 F L 98 18 130/70 H 95 Nasal Cannula 3 10/01/24 08:15 10/01/24 08:15 10/01/24 08:15 10/01/24 08:15 10/01/24 08:15 10/01/24 08:15 10/01/24 08:15 FiO2 30 09/30/24 22:20 Oxygen Flow Rate (L/min) 3 Oxygen Delivery Method Nasal Cannula Weight: 158 lb 8.198 oz Body Mass Index (BMI) 27.0 Intake & Output: Intake and Output for Last 24 Hours 09/30/24 10/01/24 10/02/24 03:59 03:59 03:59 Intake Total 1000 / 1000 990 / 990 Output Total 0 / 0 Balance 1000 / 1000 990 / 990 Lab / Micro Data 10/01/24 04:21 10/01/24 04:21 Labs: Laboratory Results - last 24 hr 10/01/24 04:21: WBC 8.5, RBC 4.90, Hgb 13.5, Hct 40.9, MCV 83.5, MCH 27.6, MCHC 33.0, RDW Std Deviation 39.2, RDW Coeff of Augustin 12.9, Plt Count 176, MPV 9.8, Immature Gran % (Auto) 0.500, Neut % (Auto) 89.0 H, Lymph % (Auto) 6.8 L, [place] % (Auto) 3.6, Eos % (Auto) 0.0, Baso % (Auto) 0.1, Absolute Neuts (auto) 7.6, Absolute Lymphs (auto) 0.58 L, Nucleated RBC % 0, Sodium 138, Potassium 4.1, Chloride 94 L, Carbon Dioxide 34.2 H, Anion Gap 10, BUN 21 H, Creatinine 0.59 L, Estim Creat Clear Calc 65.06, Est GFR (MDRD) Non-Af 97, BUN/Creatinine Ratio 35.9 H, Glucose 111 H, Calcium 9.2 Micro: Microbiology 09/29/24 09:15 Sputum, Expectorated/Coughed Respiratory Culture - Preliminary GNR Poss Pseudomonas sp 09/29/24 06:05 Mucosa - Nasopharyngeal Respiratory Panel (PCR) - Final 09/29/24 02:30 Mucosa - Nose SARS-CoV-2, Influenza & RSV (PCR) - Final Physical Exam Narrative General: Alert, Oriented x3, Cooperative, No apparent distress HEENT: Atraumatic, PERRLA, EOMI, Normocephalic Oral: Moist Mucosa Neck: Supple, No JVD Lungs: Diminished, Normal air movement, No rhonchi, scattered wheeze, No rales Cardiovascular: Regular rate, Regular Rhythm, Normal S1, Normal S2, No murmurs Abdomen: Soft, Non Tender, Non-Distended, No Hepato-splenomegaly Extremities: No edema, Capillary Refill Less than 3 Seconds Skin: No rashes, No breakdown Musculoskeletal: No Tenderness to Palpation of Joints or Extremities Neurological: No focal neurological deficits, Motor Exam 5/5 strength throughout, Sensory exam intact to light touch and pain Psych/Mental Status: Normal Affect, Appropriate Assessment & Plan Assessment/Plan (1) COPD with acute exacerbation: PLAN: Plan 1. Acute hypercapnic on chronic hypoxic respiratory failure secondary to COPD exacerbation due to pneumonia secondary to Pseudomonas/history of non-small cell lung cancer status post right lung lobectomy ? pCO2 on ABG on admission was 79 however she refuses to wear her BiPAP for extended periods, she was able to wear for about 2 hours last night ? Continue with breathing treatments and steroids ?No consolidation, fever, leukocytosis, however sputum cultures demonstrating possible Pseudomonas ? Continue with Levaquin ? Will attempt an ambulatory pulse ox 2. Essential HTN ? Continue with her home blood pressure medications ? Will monitor make adjustments as necessary 3. Anxiety/depression/restless leg syndrome ? Stable ? Continue with her home medication 4. GERD ? Stable ? Continue with PPI DVT: Lovenox Charges/Coding Visit Charges Inpatient E&M: 23218 Subs Hosp L2
[2024-10-01] MEDS: LORazepam 0.5 MG Tablet PO ×2 (15:41→21:12)
--- NOTE | 2024-10-01 16:03 | NURSING ---
Could not complete to determine O2 needs with ambulation. Pt started to get dizzy and lightheaded. O2 sat dropped down to 85% in the distance of the bed to the window within the room. Assisted the Pt back to bed and increased the O2 to 4L until the Pt was stable then dropped the O2 back to 2L.
[2024-10-01] MEDS: Pramipexole Di-HCl 0.125 MG Tablet PO (21:12)
--- NOTE | 2024-10-01 21:41 | PCM.HOSP.N ---
Hospitalist Note Patient with episode tacycardia, rate 160s, went back down to 120s, changing to ipratropium only instead of duonebs, dose with her verapamil now and will assure no active EtOH usage history as prior EtOH abuse.
[2024-10-02] VITALS (26 sets, daily range): BP systolic 97–134; BP diastolic 53–102; PULSE 56–143; RESP 16–27; TEMP 36.1–37.2; O2SAT 90–99; BMI 26.2
--- NOTE | 2024-10-02 02:54 | CPS ---
Patient refused PAP therapy for night time use.
[2024-10-02] MEDS: Ipratropium 0.5 MG/2.5 ML SOLUTION INHALATION ×2 (04:13→06:54)
[2024-10-02] MEDS: 0.9% Saline Lock 10 ML Syringe IV ×3 (05:11→21:43)
[2024-10-02 08:01] LABS: Absolute Neutrophil Count 7.3 X10^3/uL (2.0-7.7); Basophil# 0.01 X10^3/uL; Basophil% 0.1 % (0-1); Hematocrit 40.4 % (37-47); Hemoglobin 13.4 g/dL (12.0-15.0); Lymphocyte % 6.1 % (19-41); Mean Corp Hgb Conc 33.2 g/dL (32-36); Mean Corpuscular Hgb 27.9 pg (27.0-32.0); Mean Platelet Vol. 9.7 fl (6.2-12.0); Monocyte# 0.27 X10^3/uL; Monocyte% 3.3 % (0-10); NRBC Flagged by Analyzer 0 % (0-5); Neutrophil # 7.33 X10^3/uL (2.7-7.7); Neutrophil % 89.8 % (47-70); POSITIVE DIFFERENTIAL YES; Platelet Count 172 K/mm3 (150-450); RBC Distribution Width CV 13.1 % (11.6-14.6); RBC Distribution Width SD 39.8 fl (35.1-43.9); Red Blood Count 4.81 M/mm3 (4.2-5.4); White Blood Count 8.2 K/mm3 (4.4-11.0)
[2024-10-02] MEDS: Enoxaparin 40 MG/0.4 ML Syringe SC (08:06)
[2024-10-02] MEDS: Sertraline 100 MG Tablet PO (08:07)
[2024-10-02] MEDS: Montelukast 10 MG Tablet PO (08:07)
[2024-10-02] MEDS: Pantoprazole Sodium 20 MG Tablet PO (08:07)
[2024-10-02] MEDS: Verapamil SR 180 MG CAPSULE 360 MG PO (08:07)
[2024-10-02 08:36] LABS: Anion Gap 9 (5-15); BUN 23 mg/dL (4-19); BUN/Creat Ratio 42.5 RATIO (10-20); Calcium,Total 8.9 mg/dL (7.6-11.0); Carbon Dioxide 34.5 mmol/L (21.0-32.0); Chloride 95 mmol/L (98-108); Creatinine, Serum 0.55 mg/dL (0.70-1.20); EST Glomerular Filtration Rate 99 (>60); Estimated Creatinine Clearance 63.64 ml/min (50-250); Glucose 113 mg/dL (70-99); Potassium 4.4 mmol/L (3.3-5.1); Sodium Level 138 mmol/L (133-145)
--- NOTE | 2024-10-02 08:55 | EKG12_ITS ---
Test Reason : CP Blood Pressure : */* mmHG Vent. Rate : 155 BPM Atrial Rate : * BPM P-R Int : * ms QRS Dur : 76 ms QT Int : 288 ms P-R-T Axes : * 50 79 degrees QTcB Int : 462 ms Critical Test Result: High HR vs, MAT Atrial fibrillation with rapid ventricular response Minimal voltage criteria for LVH, may be normal variant ( Sokolow-Martins ) Abnormal ECG When compared with ECG of 01-Oct-2024 21:29, MANUAL COMPARISON REQUIRED DATA IS UNCONFIRMED Confirmed by Junito Madrid [id number]), editor department LEORA RESTREPO ([id number]) on 10/02/2024 10:43:05 AM Referred By: Confirmed By: Junito Madrid
--- NOTE | 2024-10-02 08:58 | NURSING ---
Addendum entered by Rosemary See 10/02/24 09:08: EKG & VS obtained. Per Felicity Bhagat RN, she updated Dr Schafer who is on her way to see pt & has added orders. Original Note: Telemetry alarming HR 174, into room to assess pt. Pt sitting up in bed eating breakfast, c/o tightness substernal with no radiation. Pt states pain has remained unchanged, but she is feeling SOB. EKG ordered.
--- NOTE | 2024-10-02 09:04 | ECHOD_ITS ---
Reason For Study Reason For Study: ATRIAL FIBRILLATION Procedure This was a 2D Doppler, Color Flow transthoracic echocardiogram. The study was technically difficult. Exam performed portable in patient room. Left Ventricle Normal LV size. Severe concentric left ventricular hypertrophy. The LV systolic function is normal. EF is 70 %. Stage 1 diastolic dysfunction. Right Ventricle Normal right ventricle. Atria The left and right atria are normal. Mitral Valve Trivial mitral valve insufficiency. Tricuspid Valve Mild tricuspid valve insufficiency. Unable to estimate RV systolic pressure due to insufficient tricuspid regurgitant envelope. Aortic Valve Severely calcified aortic valve. Severe aortic valve stenosis. Mean peak gradient 50 mmHg. Aortic valve area 0.85 cm??. Trivial aortic valve regurgitation. Pulmonic Valve The pulmonic valve is not well visualized. Great Vessels The aortic root is not well visualized. Pericardium/Pleural No pericardial effusion. MMode/2D Measurements & Calculations LVIDd: 3.0 cm IVSd: 1.8 cm LVOT diam: 1.9 cm LVIDs: 1.5 cm LVPWd: 1.2 cm LVOT area: 3.0 cm2 RVDd: 3.0 cm FS: 49.3 % LAV(MOD-bp): 36.7 ml LVAd ap4: 11.7 cm2 LVAd ap2: 14.9 cm2 LAV(MOD-bp) Indexed: 21.0 ml/m2 LVLd ap4: 5.8 cm LVLd ap2: 6.5 cm LAV(MOD-sp2): 35.0 ml EDV(MOD-sp4): 19.8 ml EDV(MOD-sp2): 29.3 ml LAV(MOD-sp4): 34.3 ml EDV(sp4-el): 20.2 ml EDV(sp2-el): 29.0 ml LVAs ap4: 5.8 cm2 LVAs ap2: 5.2 cm2 LVLs ap4: 4.7 cm LVLs ap2: 5.1 cm ESV(MOD-sp4): 6.0 ml ESV(MOD-sp2): 5.4 ml ESV(sp4-el): 6.1 ml ESV(sp2-el): 4.5 ml EF(MOD-sp4): 69.5 % EF(MOD-sp2): 81.6 % EF(sp4-el): 69.8 % SV(MOD-sp4): 13.8 ml SV(MOD-sp2): 24.0 ml SV(sp4-el): 14.1 ml SI(MOD-sp4): 7.9 ml/m2 SI(MOD-sp2): 13.7 ml/m2 Ao sinus diam: 3.3 cm LA A4 area: 12.9 cm2 LA dimension(2D): 3.7 cm TAPSE: 1.9 cm RA A4 area: 8.9 cm2 Time Measurements MV dec time: 0.21 sec Doppler Measurements & Calculations MV E max kaye: 127.9 cm/sec MV V2 max: 135.6 cm/sec Ao V2 max: 433.5 cm/sec MV max P.4 mmHg Ao max P.2 mmHg MV V2 mean: 114.2 cm/sec Ao V2 mean: 341.7 cm/sec MV mean P.4 mmHg Ao mean P.0 mmHg MV V2 VTI: 16.9 cm Ao V2 VTI: 71.8 cm MVA(VTI): 3.6 cm2 AV (velocity ratio): 0.28 SASHA(I,D): 0.84 cm2 SASHA(V,D): 0.85 cm2 LV V1 max: 124.0 cm/sec SV(LVOT): 60.1 ml LV V1 max P.2 mmHg LV V1 mean P.8 mmHg LV V1 mean: 93.0 cm/sec LV V1 VTI: 20.2 cm ECHO/Echo Complete Interpretation Summary Severe concentric left ventricular hypertrophy. The LV systolic function is normal. EF is 70 %. Stage 1 diastolic dysfunction. Mild tricuspid valve insufficiency. Severely calcified aortic valve. Severe aortic valve stenosis. Mean peak gradie nt 50 mmHg. Aortic valve area 0.85 cm??. Trivial aortic valve regurgitation. The study was technically difficult. Ordering Physician: Lynne Schafer Referring Physician: MD Arnulfo Fall Performed By: Saray Torrez RDCS
--- NOTE | 2024-10-02 10:00 | PCM.CONS.C ---
Assessment & Plan Assessment/Plan (1) Tachycardia: PLAN: Patient's rhythm appears to be multifocal atrial tachycardia. She does not have a known history of atrial fibrillation to her knowledge. However, her knowledge of her past medical history seems limited. The patient has been on verapamil long-term which would suggest that this has been MAT in the past and had been treated with verapamil. The patient has been instituted on IV amiodarone. I would have this bag infused and get her back on her p.o. verapamil will use shorter acting given her somewhat labile blood pressure and infectious process. The ideal treatment is to control the patient's respiratory status as this is driving her tachycardia. 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 And she has gram-negative rods in her sputum presumably Pseudomonas on this admission. Further treatment and evaluation per the primary service. PLAN: Plan 1. At this point in time would recommend continuing IV amiodarone until this infusion is complete. 2. Will reinstitute short acting verapamil for rate control of the presumed MAT. 3. At this point in time I do not feel that oral anticoagulation is indicated. 4. Will obtain 2D echocardiogram once we get the heart rate a little bit better controlled later today. HPI Consult Data Date of Consult: 10/02/24 HPI Narrative Reason for Consultation: Tachycardia presumed atrial fibrillation. HPI Narrative: DENIA MARC, is a 69 F who presents with respiratory insufficiency. The patient was diagnosed with pneumonia and carries a history of non-small cell carcinoma of the lung. She also has longstanding COPD and is on home oxygen therapy. The patient's BNP on admission was 518 which was within normal limits. The patient has a history of tachycardia being placed on verapamil in the past. The patient presented emergency department on September 29, 2024. She had had progressive shortness of breath and decompensation of her respiratory status despite increasing prednisone and nebulizer treatments in her home environment. She is also noted a productive cough. Patient is status post right lung lobectomy for non-small cell carcinoma. ECG on admission showed right atrial enlargement and what appears to be either sinus rhythm with frequent PACs or multifocal atrial tachycardia. Repeat ECG when her heart rate went up this morning into the 150 range appears to be multifocal atrial tachycardia or atrial fibrillation. He is very difficult to tell on the rhythm strip on her twelve-lead. The patient's struggling with her respiratory status this morning. The patient does not have a history of atrial fibrillation to her knowledge. She has not seen a specialist in a long time by her report. She has no known cardiovascular issues that she is aware of. [facility] Medical History RLS (restless legs syndrome) History of ETOH abuse Chronic hypoxic respiratory failure, on home oxygen therapy COPD (chronic obstructive pulmonary disease) Anxiety Depression Smoker Asthma Hypertension Migraines Medical History no medical history Home Medications ?Medication ?Instructions ?Recorded ?Last Taken ?Type albuterol sulfate 90 mcg/actuation 1 - 2 puff inhalation Q4H PRN PRN 04/18/13 09/23/14 History aerosol inhaler (Ventolin HFA) Bronchodialation cyclobenzaprine 10 mg tablet 10 mg PO Q12H pain 04/18/13 09/23/14 History 10 MG fluticasone propionate 50 1 spray intranasal DAILY nasal 04/18/13 09/23/14 History mcg/actuation nasal congestion spray,suspension montelukast 10 mg tablet 10 mg PO DAILY allergies 04/18/13 09/23/14 History 10 MG omeprazole 20 mg capsule,delayed 20 mg PO DAILY heart burn 04/18/13 09/23/14 History release 20 MG tiotropium bromide 18 mcg capsule 1 puff inhalation DAILY wheezing 04/18/13 09/23/14 History with inhalation device (Spiriva with HandiHaler) verapamil 240 mg tablet,extended 360 mg PO DAILY heart 04/18/13 09/23/14 History release 360 MG Oxygen, Home [Home Oxygen] 2.5 lpm PRN PRN Dyspnea 10/22/13 09/23/14 History sertraline 100 mg tablet 100 mg PO DAILY insomina 10/22/13 09/23/14 History fluticasone 500 mcg-salmeterol 50 1 puff inhalation BID shortness of 10/26/13 09/23/14 Rx mcg/dose blistr powdr for breath ##1 inhalation (Advair Diskus) Ropinirole Hcl 0.25 mg PO QHS restless legs 09/23/14 Unknown History prednisone 10 mg tablet 15 mg PO PRN PRN FLARE UPS 04/03/15 Unknown History ipratropium 0.5 mg-albuterol 3 mg 3 ml inhalation Q4HWA.RT wheezing 05/13/16 Unknown Rx (2.5 mg base)/3 mL nebulization ##30 soln lorazepam 0.5 mg tablet 0.5 mg PO QHS anxiety #7 tabs 05/05/20 Unknown Rx nicotine (polacrilex) 2 mg gum 2 mg buccal Q2H to stop smoking 07/22/23 Unknown Rx (Nicorette) #20 ea cholecalciferol (vitamin D3) 50 50 mcg PO DAILY vitamin 10/18/23 Unknown History mcg (2,000 unit) capsule (Vitamin D3) ipratropium 0.5 mg-albuterol 3 mg 3 ml inhalation Q6H PRN shortness 10/18/23 Unknown Rx (2.5 mg base)/3 mL nebulization of breath or wheezing #180 mL soln prednisone 20 mg tablet 40 mg (2 x 20 mg) PO DAILY 5 days 10/18/23 Unknown Rx #10 tabs Allergy/AdvReac Type Severity Reaction Status Date / Time No Known Allergies Allergy Verified 09/29/24 02:19 Family History Mother Hypertension Throat cancer Father Hypertension Stomach cancer Family History no significant family his Surgical History H/O exploratory laparotomy History of lung surgery History of cholecystectomy Social History household members: significant other and none housing: apartment Smoking Status: Former smoker alcohol intake: former substance use type: does not use ROS Constitutional Constitutional: Reports as per HPI Eyes Eyes: Reports systems reviewed and no addt'l complaints, except as documented ENT HEENT: Reports systems reviewed and no addt'l complaints, except as documented Cardiovascular Cardiovascular: Reports as per HPI Respiratory/Chest Respiratory/Chest: Reports as per HPI Gastrointestinal Gastrointestinal: Reports systems reviewed and no addt'l complaints, except as documented Genitourinary Genitourinary: Reports systems reviewed and no addt'l complaints, except as documented Musculoskeletal Musculoskeletal: Reports systems reviewed and no addt'l complaints, except as documented Integumentary Integumentary: Reports systems reviewed and no addt'l complaints, except as documented Neurologic Neurologic: Reports systems reviewed and no addt'l complaints, except as documented Psychiatric Psychiatric: Reports systems reviewed and no addt'l complaints, except as documented Endocrine Endocrinology: Reports systems reviewed and no addt'l complaints, except as documented Hematologic/Lymphatic Hematologic/Lymphatic: Reports systems reviewed and no addt'l complaints, except as documented Allergic/Immunologic Allergic/Immunologic: Reports systems reviewed and no addt'l complaints, except as documented Physical Exam Narrative Patient resting at 30 degrees in the bed tachypneic with conversational dyspnea. Const alert and oriented x3 HEENT normocephalic Eyes EOMs intact bilaterally Neck no JVD Chest Chest Narrative: Barrel chested. Resp Resp Narrative: Tachypneic with poor air movement. Auscultation: wheezes throughout, breath sounds absent right and diminished lung sounds left lower Cardio Rate: tachycardic Rhythm: abnormal rhythm irregularly irregular Heart Sounds: S1 normal, S2 normal and murmur systolic II/ soft mid right sternal border; Negative for click or gallop GI soft to palpation Extremity no pedal edema Neuro Neuro Narrative: Alert and oriented x 3 Psych mental status grossly normal Risk Stratification Risk Stratification Applicable: No Charges/Coding Visit Charges Inpatient E&M: 99536 Init Hosp L2 Objective Data Vital Signs: Vital Signs Temp Pulse Resp BP Pulse Ox O2 Del Method O2 Flow Rate 97.5 F L 56 L 18 121/102 H 96 Nasal Cannula 3 10/02/24 08:02 10/02/24 09:04 10/02/24 09:04 10/02/24 09:04 10/02/24 09:04 10/02/24 09:04 10/02/24 09:04 FiO2 30 09/30/24 22:20 Oxygen Flow Rate (L/min) 3 Oxygen Delivery Method Nasal Cannula Weight: 153 lb 14.122 oz Body Mass Index (BMI) 26.2 Intake & Output: Intake and Output for Last 24 Hours 09/30/24 10/01/24 10/02/24 23:59 23:59 23:59 Intake Total 990 / 990 1470 / 1470 240 / 240 Balance 990 / 990 1470 / 1470 240 / 240 Lab / Micro Data 10/02/24 07:13 10/02/24 07:13 Labs: Laboratory Results - last 24 hr 10/02/24 07:13: WBC 8.2, RBC 4.81, Hgb 13.4, Hct 40.4, MCV 84.0, MCH 27.9, MCHC 33.2, RDW Std Deviation 39.8, RDW Coeff of [place] 13.1, Plt Count 172, MPV 9.7, Immature Gran % (Auto) 0.700, Neut % (Auto) 89.8 H, Lymph % (Auto) 6.1 L, [place] % (Auto) 3.3, Eos % (Auto) 0.0, Baso % (Auto) 0.1, Absolute Neuts (auto) 7.3, Absolute Lymphs (auto) 0.50 L, Nucleated RBC % 0, Sodium 138, Potassium 4.4, Chloride 95 L, Carbon Dioxide 34.5 H, Anion Gap 9, BUN 23 H, Creatinine 0.55 L, Estim Creat Clear Calc 63.64, Est GFR (MDRD) Non-Af 99, BUN/Creatinine Ratio 42.5 H, Glucose 113 H, Calcium 8.9 Micro: Microbiology 09/29/24 09:15 Sputum, Expectorated/Coughed Respiratory Culture - Preliminary Stenotrophomonas maltophilia GNR Poss Pseudomonas sp Rhythm Strip Rhythm Strip: Multifocal atrial tachycardia Rate: 150 Cardiology Labs/Tests 10/02/24 07:13: WBC 8.2, RBC 4.81, Hgb 13.4, Hct 40.4, MCV 84.0, MCH 27.9, MCHC 33.2, Plt Count 172, MPV 9.7, Immature Gran % (Auto) 0.700, Neut % (Auto) 89.8 H, Lymph % (Auto) 6.1 L, [place] % (Auto) 3.3, Eos % (Auto) 0.0, Baso % (Auto) 0.1, Absolute Neuts (auto) 7.3, Nucleated RBC % 0, Sodium 138, Potassium 4.4, Chloride 95 L, Carbon Dioxide 34.5 H, Anion Gap 9, BUN 23 H, Creatinine 0.55 L, Est GFR (MDRD) Non-Af 99, BUN/Creatinine Ratio 42.5 H, Glucose 113 H, Calcium 8.9 Rhythm: EKG: ECHO: Stress Test: Cardiac Cath: PCI: CT Surgery: Holter monitor: EPS: PPM: CXR: Chest CT Scan:
[2024-10-02 10:10] LABS: Troponin T High Sensitivity 23 ng/L (<=14)
[2024-10-02] MEDS: Amiodarone 150 MG in Dextrose 5%-Water (100mL Bag) 100 ML 600 MG IV BOLUS (10:10)
[2024-10-02 10:23] LABS: Magnesium 2.1 mg/dL (1.5-2.2); Thyroid Stim Hormone (TSH) 0.281 uIU/mL (0.300-4.200)
[2024-10-02] MEDS: Amiodarone 360 MG in Dextrose 5% Viaflo Bag 192.8 ML 33.3 MG CONT INF (10:35)
[2024-10-02] MEDS: levoFLOXacin IV 750 MG/150 ML BAG 100 MG IV (10:37)
--- NOTE | 2024-10-02 12:20 | PCM.PROGNOTE ---
Subjective Subjective Patient seen and examined. SHe was noted to be tachycardic this morning, with her HR up in the 160s systolic today. It was initially sinus tachycardia, but subsequently appeared to be afib with RVR. She received verapamil last night and also this morning. She admits to feeling short of breath and having palpitations. She is wheezing. She is on 3 L of oxygen. Review of systems otherwise negative.She denies any chest pain and any history of afib. She says her machine that she uses to check her BP at home usually indicates she has an irregular fast heart rhythm, but she has never had it checked out, and does not have a known diagnosis of afib. She was seen in the presence of her nurse. Objective Data Objective Data Vital Signs: Vital Signs Temp Pulse Resp BP Pulse Ox O2 Del Method O2 Flow Rate 97.5 F L 133 H 24 H 104/74 96 Nasal Cannula 3 10/02/24 08:02 10/02/24 10:35 10/02/24 10:35 10/02/24 10:35 10/02/24 10:35 10/02/24 10:35 10/02/24 10:35 FiO2 30 09/30/24 22:20 Oxygen Flow Rate (L/min) 3 Oxygen Delivery Method Nasal Cannula Weight: 153 lb 14.122 oz Body Mass Index (BMI) 26.2 Intake & Output: Intake and Output for Last 24 Hours 09/30/24 10/01/24 10/02/24 23:59 23:59 23:59 Intake Total 990 / 990 1470 / 1470 240 / 240 Balance 990 / 990 1470 / 1470 240 / 240 Lab / Micro Data 10/02/24 07:13 10/02/24 07:13 Labs: Laboratory Results - last 24 hr 10/02/24 07:13: WBC 8.2, RBC 4.81, Hgb 13.4, Hct 40.4, MCV 84.0, MCH 27.9, MCHC 33.2, RDW Std Deviation 39.8, RDW Coeff of Augustin 13.1, Plt Count 172, MPV 9.7, Immature Gran % (Auto) 0.700, Neut % (Auto) 89.8 H, Lymph % (Auto) 6.1 L, [place] % (Auto) 3.3, Eos % (Auto) 0.0, Baso % (Auto) 0.1, Absolute Neuts (auto) 7.3, Absolute Lymphs (auto) 0.50 L, Nucleated RBC % 0, Sodium 138, Potassium 4.4, Chloride 95 L, Carbon Dioxide 34.5 H, Anion Gap 9, BUN 23 H, Creatinine 0.55 L, Estim Creat Clear Calc 63.64, Est GFR (MDRD) Non-Af 99, BUN/Creatinine Ratio 42.5 H, Glucose 113 H, Calcium 8.9 10/02/24 09:31: Magnesium 2.1, Troponin T High Sens 23 H, TSH 0.281 L Micro: Microbiology 09/29/24 09:15 Sputum, Expectorated/Coughed Respiratory Culture - Preliminary Stenotrophomonas maltophilia Pseudomonas aeruginosa 09/29/24 06:05 Mucosa - Nasopharyngeal Respiratory Panel (PCR) - Final 09/29/24 02:30 Mucosa - Nose SARS-CoV-2, Influenza & RSV (PCR) - Final Rhythm Strip Rhythm Strip: Multifocal atrial tachycardia Rate: 150 Physical Exam Const alert and oriented x3 Constitutional Narrative: in mild distress due to the tachycardia HEENT normocephalic, head/scalp atraumatic, moist oral mucous membranes and oropharynx normal Eyes PERRL and EOMs intact bilaterally Neck supple General: trachea midline Lymph Lymphatic: no lymphedema noted Resp Resp Narrative: mildly diminished breath sounds bibasally, mild wheezing. NO crackles. On 3L of oxygen by nasal canula Cardio S1 normal heart sound, S2 normal heart sound and no murmurs Cardio Narrative: afib with RVR GI normal to inspection, nondistended, normoactive bowel sounds, soft to palpation, non-tender and non-distended Extremity normal capillary refill and no clubbing, cyanosis or edema General Extremity: no tenderness to palpation of joints or extremities Skin General Skin Exam: no breakdown Neuro no focal motor deficits Neuro Narrative: alert, oriented x 3, communicative, moves all extremities spontaneously Motor Exam: general weakness Psych thought process normal and cooperative Appearance: appropriate Assessment & Plan Assessment/Plan (1) Tachycardia: (2) COPD with acute exacerbation: PLAN: Plan #Acute hypoxic and hypercapnic respiratory failure due to COPD exacerbation and pneumonia sputum cultures growing Pseudomonas has a history of non-small cell lung cancer. on IV levaquin breathing treatment with bronchodilators. Titrate oxygen to maintain sats >90% Sputum cultures grew stenotrophomonas and Pseudomonas both sensitive to Levaquin #Afib with RVR Patient was noted to be tachycardic yesterday and was placed on verapamil. This morning her heart rate was in the 160s 170s. EKG showed evidence of A-fib with RVR. Patient started on amiodarone infusion with bolus cardiology consulted; per cardiology this may be for multifocal atrial tachycardia Started on therapeutic Lovenox and 2D echo ordered. Await cardiology evaluation. #Benign essential hypertension Per cardiology is likely its multifocal atrial tachycardia. Will therefore place him back on p.o. verapamil. #Benign essential hypertension: #ANxiety and depression: On Ativan nightly #Restless leg syndrome: On pramipexole #GERD: on PPI DVT prophylaxis: now on therapeutic lovenox Charges/Coding Visit Charges Inpatient E&M: 54340 [facility] Hosp L3
[2024-10-02 12:23] LABS: Troponin T High Sens 2 HR 23 ng/L (<=14)
[2024-10-02] MEDS: Verapamil SR 240 MG Tablet 120 MG PO ×2 (13:23→21:31)
[2024-10-02] MEDS: Enoxaparin 30 MG/0.3 ML Syringe SC (13:33)
[2024-10-02 14:43] LABS: Troponin T High Sens 4 HR 24 ng/L (<=14)
[2024-10-02] MEDS: Amiodarone 360 MG in Dextrose 5% Viaflo Bag 192.8 ML 16.7 MG CONT INF (17:00)
--- NOTE | 2024-10-02 18:57 | EKG12_ITS ---
Test Reason : CP Blood Pressure : */* mmHG Vent. Rate : 139 BPM Atrial Rate : * BPM P-R Int : * ms QRS Dur : 82 ms QT Int : 264 ms P-R-T Axes : * 47 73 degrees QTcB Int : 401 ms Atrial fibrillation with rapid ventricular response Abnormal ECG When compared with ECG of 02-Oct-2024 09:05, No significant change was found Confirmed by Junito Madrid ([id number]), video tape editor LEORA RESTREPO ([id number]) on 10/03/2024 11:08:49 AM Referred By: Confirmed By: Junito Madrid
[2024-10-02] MEDS: Mag Hydrox/Al Hydrox/Simeth 30 ML UDC PO (19:01)
[2024-10-02] MEDS: Acetaminophen 325 MG Tablet 650 MG PO (19:01)
[2024-10-02] MEDS: LORazepam 0.5 MG Tablet PO (21:30)
[2024-10-02] MEDS: Enoxaparin 80 MG/0.8 ML Syringe 70 MG SC (21:31)
[2024-10-02] MEDS: Pramipexole Di-HCl 0.125 MG Tablet PO (21:32)
[2024-10-03] VITALS (20 sets, daily range): BP systolic 108–157; BP diastolic 65–107; PULSE 93–145; RESP 16–24; TEMP 36.4–37; O2SAT 95–100; BMI 26.3
[2024-10-03] MEDS: Amiodarone 360 MG in Dextrose 5% Viaflo Bag 192.8 ML 16.7 MG CONT INF (04:59)
[2024-10-03] MEDS: Verapamil SR 240 MG Tablet 120 MG PO ×3 (06:54→22:29)
[2024-10-03] MEDS: 0.9% Saline Lock 10 ML Syringe IV (06:55)
[2024-10-03] MEDS: Ipratropium 0.5 MG/2.5 ML SOLUTION INHALATION ×4 (07:39→21:06)
--- NOTE | 2024-10-03 08:40 | PN.CARD_ITS ---
Subjective Subjective Patient is resting comfortably in the bed this morning. Telemetry shows that her rhythm is now atrial fibrillation with a heart rate of approximately 100 bpm. I did review the patient's situation with her nursing staff. The patient is tolerating full dose Lovenox. Her echocardiogram showed severe aortic stenosis with a peak gradient of 75 mmHg and a mean gradient of 50. Her septal thickness is 1.8 cm posterior wall is 1.2 consistent with some asymmetric septal hypertrophy. Objective Data Vital Signs: Vital Signs Temp Pulse Resp BP Pulse Ox O2 Del Method O2 Flow Rate 98.9 F 97 20 H 120/73 98 Nasal Cannula 3 10/02/24 22:00 10/03/24 07:40 10/03/24 07:40 10/03/24 07:00 10/03/24 07:40 10/03/24 07:40 10/03/24 07:40 FiO2 30 09/30/24 22:20 Oxygen Flow Rate (L/min) 3 Oxygen Delivery Method Nasal Cannula Weight: 153 lb 7.068 oz Body Mass Index (BMI) 26.3 Intake & Output: Intake and Output for Last 24 Hours 10/01/24 10/02/24 10/03/24 23:59 23:59 23:59 Intake Total 1470 / 1470 1393.20 / 1509.90 333.48 / 333.48 Output Total 700 / 700 Balance 1470 / 1470 1393.20 / 1209.90 -366.52 / -366.52 Lab / Micro Data Attestation: I reviewed the patient's lab results. 10/02/24 07:13 10/02/24 07:13 Labs: Laboratory Results - last 24 hr 10/02/24 09:31: Magnesium 2.1, Troponin T High Sens 23 H, TSH 0.281 L 10/02/24 11:50: Troponin T Hi Sens 2 Hr 23 H 10/02/24 14:15: Troponin T Hi Sens 4Hr 24 H Micro: Microbiology 09/29/24 09:15 Sputum, Expectorated/Coughed Gram Stain - Final 09/29/24 09:15 Sputum, Expectorated/Coughed Respiratory Culture - Final Stenotrophomonas maltophilia Pseudomonas aeruginosa Rhythm Strip Rhythm Strip: A-fib Rate: 100 Cardiology Labs/Tests 10/02/24 09:31: Magnesium 2.1 Rhythm: EKG: ECHO: Stress Test: Cardiac Cath: PCI: CT Surgery: Holter monitor: EPS: PPM: CXR: Chest CT Scan: Radiography Diagnostic Testing: Radiology Impression Echocardiogram 10/02/24 09:04 Interpretation Summary Severe concentric left ventricular hypertrophy. The LV systolic function is normal. EF is 70 %. Stage 1 diastolic dysfunction. Mild tricuspid valve insufficiency. Severely calcified aortic valve. Severe aortic valve stenosis. Mean peak gradient 50 mmHg. Aortic valve area 0.85 cm??. Trivial aortic valve regurgitation. The study was technically difficult. Ordering Physician: Lynne Schafer Referring Physician: MD Eufemia Arnulfo Performed By: Saray Torrez JOE Physical Exam Const alert and oriented x3 HEENT normocephalic Eyes EOMs intact bilaterally Resp normal respiratory effort Auscultation: wheezes expiratory wheezes and throughout (Less prominent than 24 hours ago.), breath sounds absent right (base) and diminished lung sounds diffuse Cardio Rate: tachycardic Rhythm: abnormal rhythm irregularly irregular Heart Sounds: S1 normal, S2 normal and murmur systolic II/ harsh (A cooing holosystolic murmur consistent with aortic stenosis.); Negative for click or gallop Extremity no pedal edema Neuro Neuro Narrative: Alert and oriented x 3 Psych mental status grossly normal Assessment & Plan Assessment/Plan (1) Tachycardia: PLAN: Patient's heart rate has come under better control with addition of verapamil 120 mg 3 times daily. She also remains on IV amiodarone she is fully anticoagulated with Lovenox. The patient has Pseudomonas growing in her sputum. She continues to have respiratory issues but it appears that her air exchange has improved over the last 24 hours. We will continue her current medical therapy to control her heart rate. The patient does have some volume overload which is being addressed with diuresis. Her heart rate now runs in the 96-130 bpm range on telemetry that she is in atrial fibrillation at 100 bpm this morning. The patient does have severe aortic stenosis which will be addressed after her infection is documented to be cleared. (2) Aortic valve stenosis: QUALIFIERS: Cardiac valve disease etiology: nonrheumatic Q ualified Code(s): I35.0 - Nonrheumatic aortic (valve) stenosis PLAN: Patient's peak gradient is 75 mean gradient is 15 which correlates with severe aortic stenosis. She also has septal hypertrophy with a measurement of 1.8 cm and the septum in the posterior wall is 1.2 cm. This is significant in that when the aortic stenosis is relieved this needs to be monitored closely for left ventricular outflow tract obstruction physiology. The patient will be evaluated for possible TAVR after her pulmonary issues are resolved and her respiratory status is back to baseline. She may be a candidate for TAVR but does not appear she would be a surgical candidate. PLAN: Plan 1. Continue current therapy. 2. Will follow-up in the outpatient setting once she is discharged for further evaluation of her aortic valve disease. 3. Continue with rate control and oral anticoagulation as tolerated. Charges/Coding Visit Charges Inpatient E&M: 34465 [facility] H[facility] L[facility]
[2024-10-03 09:36] LABS: Absolute Lymphocyte Count 0.48 X10^3/uL (0.83-4.51); Absolute Neutrophil Count 8.5 X10^3/uL (2.0-7.7); Basophil# 0.01 X10^3/uL; Basophil% 0.1 % (0-1); Hematocrit 41.4 % (37-47); Hemoglobin 13.6 g/dL (12.0-15.0); Lymphocyte # 0.48 X10^3/ul (0.83-4.51); Lymphocyte % 5.2 % (19-41); Mean Corp Hgb Conc 32.9 g/dL (32-36); Mean Corpuscular Hgb 28.2 pg (27.0-32.0); Mean Corpuscular Volume 85.7 fL (81-99); Mean Platelet Vol. 10.2 fl (6.2-12.0); Monocyte# 0.11 X10^3/uL; Monocyte% 1.2 % (0-10); NRBC Flagged by Analyzer 0 % (0-5); Neutrophil # 8.53 X10^3/uL (2.7-7.7); Neutrophil % 93.2 % (47-70); POSITIVE DIFFERENTIAL YES; Platelet Count 184 K/mm3 (150-450); RBC Distribution Width CV 13.1 % (11.6-14.6); RBC Distribution Width SD 40.3 fl (35.1-43.9); Red Blood Count 4.83 M/mm3 (4.2-5.4); White Blood Count 9.2 K/mm3 (4.4-11.0)
[2024-10-03] MEDS: Enoxaparin 80 MG/0.8 ML Syringe 70 MG SC ×2 (09:56→22:34)
[2024-10-03] MEDS: Sertraline 100 MG Tablet PO (09:58)
[2024-10-03] MEDS: Pantoprazole Sodium 20 MG Tablet PO (09:58)
[2024-10-03] MEDS: Montelukast 10 MG Tablet PO (09:58)
[2024-10-03] MEDS: levoFLOXacin IV 750 MG/150 ML BAG 100 MG IV (10:16)
[2024-10-03 10:31] LABS: Anion Gap 9 (5-15); BUN 23 mg/dL (4-19); BUN/Creat Ratio 34.9 RATIO (10-20); Calcium,Total 8.8 mg/dL (7.6-11.0); Chloride 93 mmol/L (98-108); Creatinine, Serum 0.65 mg/dL (0.70-1.20); EST Glomerular Filtration Rate 95 (>60); Estimated Creatinine Clearance 63.56 ml/min (50-250); Glucose 220 mg/dL (70-99); Potassium 4.4 mmol/L (3.3-5.1); Sodium Level 135 mmol/L (133-145)
[2024-10-03] MEDS: busPIRone 5 MG Tablet 10 MG PO ×2 (11:41→22:29)
--- NOTE | 2024-10-03 12:18 | PCM.PROGNOTE ---
Subjective Subjective Patient seen and examined with her nurse by her bedside. Still complains of feeling short of breath. Heart rate had improved and was down in the 90s at time of review but with just sitting up and talking her heart rate went up to the 140s and 150s. She denied any lightheadedness, nausea vomiting or any other symptoms. Review of symptoms otherwise negative. Objective Data Objective Data Vital Signs: Vital Signs Temp Pulse Resp BP Pulse Ox O2 Del Method O2 Flow Rate 98.9 F 114 H 20 H 120/73 98 Nasal Cannula 3 10/02/24 22:00 10/03/24 10:47 10/03/24 10:47 10/03/24 07:00 10/03/24 07:40 10/03/24 07:40 10/03/24 07:40 FiO2 30 09/30/24 22:20 Oxygen Flow Rate (L/min) 3 Oxygen Delivery Method Nasal Cannula Weight: 153 lb 7.068 oz Body Mass Index (BMI) 26.3 Intake & Output: Intake and Output for Last 24 Hours 10/01/24 10/02/24 10/03/24 23:59 23:59 23:59 Intake Total 1470 / 1470 1393.20 / 1509.90 400.28 / 400.28 Output Total 700 / 700 Balance 1470 / 1470 1393.20 / 1209.90 -299.72 / -299.72 Lab / Micro Data 10/03/24 09:17 10/03/24 09:17 Labs: Laboratory Results - last 24 hr 10/02/24 11:50: Troponin T Hi Sens 2 Hr 23 H 10/02/24 14:15: Troponin T Hi Sens 4Hr 24 H 10/03/24 09:17: WBC 9.2, RBC 4.83, Hgb 13.6, Hct 41.4, MCV 85.7, MCH 28.2, MCHC 32.9, RDW Std Deviation 40.3, RDW Coeff of Augustin 13.1, Plt Count 184, MPV 10.2, Immature Gran % (Auto) 0.300, Neut % (Auto) 93.2 H, Lymph % (Auto) 5.2 L, [place] % (Auto) 1.2, Eos % (Auto) 0.0, Baso % (Auto) 0.1, Absolute Neuts (auto) 8.5 H, Absolute Lymphs (auto) 0.48 L, Nucleated RBC % 0, Sodium 135, Potassium 4.4, Chloride 93 L, Carbon Dioxide 34.0 H, Anion Gap 9, BUN 23 H, Creatinine 0.65 L, Estim Creat Clear Calc 63.56, Est GFR (MDRD) Non-Af 95, BUN/Creatinine Ratio 34.9 H, Glucose 220 H, Calcium 8.8, Free T4 1.20 Micro: Microbiology 09/29/24 09:15 Sputum, Expectorated/Coughed Gram Stain - Final 09/29/24 09:15 Sputum, Expectorated/Coughed Respiratory Culture - Final Stenotrophomonas maltophilia Pseudomonas aeruginosa 09/29/24 06:05 Mucosa - Nasopharyngeal Respiratory Panel (PCR) - Final 09/29/24 02:30 Mucosa - Nose SARS-CoV-2, Influenza & RSV (PCR) - Final Radiography Diagnostic Testing: Radiology Impression Echocardiogram 10/02/24 09:04 Interpretation Summary Severe concentric left ventricular hypertrophy. The LV systolic function is normal. EF is 70 %. Stage 1 diastolic dysfunction. Mild tricuspid valve insufficiency. Severely calcified aortic valve. Severe aortic valve stenosis. Mean peak gradient 50 mmHg. Aortic valve area 0.85 cm??. Trivial aortic valve regurgitation. The study was technically difficult. Ordering Physician: Lynne Schafer Referring Physician: MD Eufemia Arnulfo Performed By: Saray Torrez, CS Rhythm Strip Rhythm Strip: A-fib Rate: 100 Physical Exam Const alert and oriented x3 HEENT normocephalic, head/scalp atraumatic, moist oral mucous membranes and oropharynx normal Eyes PERRL and EOMs intact bilaterally Neck supple General: trachea midline Lymph Lymphatic: no lymphedema noted Resp Resp Narrative: mildly diminished breath sounds bibasally, mild wheezing. NO crackles. On 3L of oxygen by nasal canula Cardio S1 normal heart sound, S2 normal heart sound and no murmurs Cardio Narrative: tachycardic, HR in the 140s and 150s. GI normal to inspection, nondistended, normoactive bowel sounds, soft to palpation, non-tender and non-distended Extremity normal capillary refill and no clubbing, cyanosis or edema General Extremity: no tenderness to palpation of joints or extremities Skin General Skin Exam: no breakdown Neuro no focal motor deficits Neuro Narrative: alert, oriented x 3, communicative, moves all extremities spontaneously Motor Exam: general weakness Psych thought process normal and cooperative Appearance: appropriate Assessment & Plan Assessment/Plan (1) Tachycardia: (2) COPD with acute exacerbation: PLAN: Plan #Acute hypoxic and hypercapnic respiratory failure due to COPD exacerbation and pneumonia sputum cultures growing Pseudomonas has a history of non-small cell lung cancer. on IV levaquin breathing treatment with bronchodilators. Titrate oxygen to maintain sats >90% Sputum cultures grew stenotrophomonas and Pseudomonas both sensitive to Levaquin on 3L of oxygen by nasal canula #Tachycardia Patient was noted to be tachycardic and was placed on verapamil. Got concern for A-fib with RVR so she was started on amiodarone drip. She is finishing up the back of amiodarone drip today. Cardiology reviewed and noted it was more of multifocal atrial tachycardia. Plan therefore was for her to be placed back on her verapamil and stop amiodarone once the current bag is finished. Patient still however tachycardic this morning especially with slight exertion. She goes up to the 140s and 150s and heart rate. 2D echo done showed severe concentric left ventricular hypertrophy with EF of 70% and stage I diastolic dysfunction as well as severely calcified aortic valve with severe aortic valve stenosis and mean peak gradient of 50 mmHg as well as trivial aortic valve regurgitation. Cardiology on board. Management as per cardiology. #Benign essential hypertension in verapamil #ANxiety and depression: On Ativan nightly. Buspirone also resumed #Restless leg syndrome: On pramipexole #GERD: on PPI DVT prophylaxis: On therapeutic Lovenox Charges/Coding Visit Charges Inpatient E&M: 85889 Subs Hosp L2
[2024-10-03] MEDS: Acetaminophen 325 MG Tablet 650 MG PO (14:06)
[2024-10-03] MEDS: HYDROcodone Bitartrate/Apap 5/325 Tablet PO (17:44)
[2024-10-03] MEDS: LORazepam 0.5 MG Tablet PO (22:29)
[2024-10-03] MEDS: Pramipexole Di-HCl 0.125 MG Tablet PO (22:31)
[2024-10-04] VITALS (10 sets, daily range): BP systolic 120–150; BP diastolic 73–89; PULSE 84–113; RESP 18–22; TEMP 36.3–37.1; O2SAT 93–98; BMI 26.3
[2024-10-04 05:20] LABS: Absolute Lymphocyte Count 0.46 X10^3/uL (0.83-4.51); Absolute Neutrophil Count 6.5 X10^3/uL (2.0-7.7); Hematocrit 41.4 % (37-47); Hemoglobin 13.9 g/dL (12.0-15.0); Lymphocyte # 0.46 X10^3/ul (0.83-4.51); Lymphocyte % 6.4 % (19-41); Mean Corp Hgb Conc 33.6 g/dL (32-36); Mean Corpuscular Hgb 28.6 pg (27.0-32.0); Mean Corpuscular Volume 85.2 fL (81-99); Mean Platelet Vol. 9.9 fl (6.2-12.0); Monocyte# 0.21 X10^3/uL; Monocyte% 2.9 % (0-10); NRBC Flagged by Analyzer 0 % (0-5); Neutrophil # 6.46 X10^3/uL (2.7-7.7); Neutrophil % 90.1 % (47-70); POSITIVE DIFFERENTIAL YES; Platelet Count 160 K/mm3 (150-450); RBC Distribution Width CV 12.9 % (11.6-14.6); RBC Distribution Width SD 39.8 fl (35.1-43.9); Red Blood Count 4.86 M/mm3 (4.2-5.4); White Blood Count 7.2 K/mm3 (4.4-11.0)
[2024-10-04] MEDS: Verapamil SR 240 MG Tablet 120 MG PO ×3 (05:43→22:03)
[2024-10-04 05:55] LABS: Anion Gap 8 (5-15); BUN 21 mg/dL (4-19); BUN/Creat Ratio 36.3 RATIO (10-20); Calcium,Total 8.7 mg/dL (7.6-11.0); Carbon Dioxide 35.4 mmol/L (21.0-32.0); Chloride 94 mmol/L (98-108); Creatinine, Serum 0.58 mg/dL (0.70-1.20); EST Glomerular Filtration Rate 98 (>60); Estimated Creatinine Clearance 63.56 ml/min (50-250); Glucose 125 mg/dL (70-99); Potassium 4.6 mmol/L (3.3-5.1); Sodium Level 137 mmol/L (133-145)
[2024-10-04] MEDS: Ipratropium 0.5 MG/2.5 ML SOLUTION INHALATION ×4 (07:52→19:50)
[2024-10-04] MEDS: busPIRone 5 MG Tablet 10 MG PO ×2 (08:56→22:01)
[2024-10-04] MEDS: levoFLOXacin IV 750 MG/150 ML BAG 100 MG IV (08:56)
[2024-10-04] MEDS: Enoxaparin 80 MG/0.8 ML Syringe 70 MG SC ×2 (08:57→22:02)
[2024-10-04] MEDS: Montelukast 10 MG Tablet PO (08:58)
[2024-10-04] MEDS: Pantoprazole Sodium 20 MG Tablet PO (08:58)
[2024-10-04] MEDS: Sertraline 100 MG Tablet PO (08:58)
--- NOTE | 2024-10-04 10:14 | PCM.PN.CARD ---
Subjective Subjective Patient is resting comfortably in bed. Reports that her breathing is better her heart rate has converted into sinus rhythm at 87 bpm. She had been in atrial fibrillation she converted around 1900 hrs. yesterday. Objective Data Vital Signs: Vital Signs Temp Pulse Resp BP Pulse Ox O2 Del Method O2 Flow Rate 98.2 F 98 22 H 140/73 H 94 Nasal Cannula 2 10/04/24 09:01 10/04/24 09:01 10/04/24 09:01 10/04/24 09:01 10/04/24 09:01 10/04/24 09:01 10/04/24 09:01 FiO2 30 09/30/24 22:20 Oxygen Flow Rate (L/min) 2 Oxygen Delivery Method Nasal Cannula Weight: 153 lb 7.068 oz Body Mass Index (BMI) 26.3 Intake & Output: Intake and Output for Last 24 Hours 10/02/24 10/03/24 10/04/24 23:59 23:59 23:59 Intake Total 1393.20 / 1509.90 670.28 / 670.28 Output Total 1999 Balance 1393.20 / 1209.90 -1329.72 / -1329.72 Lab / Micro Data Attestation: I reviewed the patient's lab results. 10/04/24 04:49 10/04/24 04:49 Labs: Laboratory Results - last 24 hr 10/03/24 09:17: Sodium 135, Potassium 4.4, Chloride 93 L, Carbon Dioxide 34.0 H, Anion Gap 9, BUN 23 H, Creatinine 0.65 L, Estim Creat Clear Calc 63.56, Est GFR (MDRD) Non-Af 95, BUN/Creatinine Ratio 34.9 H, Glucose 220 H, Calcium 8.8, Free T4 1.20 10/04/24 04:49: WBC 7.2, RBC 4.86, Hgb 13.9, Hct 41.4, MCV 85.2, MCH 28.6, MCHC 33.6, RDW Std Deviation 39.8, RDW Coeff of Augustin 12.9, Plt Count 160, MPV 9.9, Immature Gran % (Auto) 0.600, Neut % (Auto) 90.1 H, Lymph % (Auto) 6.4 L, [place] % (Auto) 2.9, Eos % (Auto) 0.0, Baso % (Auto) 0.0, Absolute Neuts (auto) 6.5, Absolute Lymphs (auto) 0.46 L, Nucleated RBC % 0, Sodium 137, Potassium 4.6, Chloride 94 L, Carbon Dioxide 35.4 H, Anion Gap 8, BUN 21 H, Creatinine 0.58 L, Estim Creat Clear Calc 63.56, Est GFR (MDRD) Non-Af 98, BUN/Creatinine Ratio 36.3 H, Glucose 125 H, Calcium 8.7 Micro: Microbiology 09/29/24 09:15 Sputum, Expectorated/Coughed Gram Stain - Final 09/29/24 09:15 Sputum, Expectorated/Coughed Respiratory Culture - Final Stenotrophomonas maltophilia Pseudomonas aeruginosa Rhythm Strip Rhythm Strip: Sinus Rhythm Rate: 87 Cardiology Labs/Tests 10/03/24 09:17: Sodium 135, Potassium 4.4, Chloride 93 L, Carbon Dioxide 34.0 H, Anion Gap 9, BUN 23 H, Creatinine 0.65 L, Est GFR (MDRD) Non-Af 95, BUN/Creatinine Ratio 34.9 H, Glucose 220 H, Calcium 8.8 10/04/24 04:49: WBC 7.2, RBC 4.86, Hgb 13.9, Hct 41.4, MCV 85.2, MCH 28.6, MCHC 33.6, Plt Count 160, MPV 9.9, Immature Gran % (Auto) 0.600, Neut % (Auto) 90.1 H, Lymph % (Auto) 6.4 L, [place] % (Auto) 2.9, Eos % (Auto) 0.0, Baso % (Auto) 0.0, Absolute Neuts (auto) 6.5, Nucleated RBC % 0, Sodium 137, Potassium 4.6, Chloride 94 L, Carbon Dioxide 35.4 H, Anion Gap 8, BUN 21 H, Creatinine 0.58 L, Est GFR (MDRD) Non-Af 98, BUN/Creatinine Ratio 36.3 H, Glucose 125 H, Calcium 8.7 Rhythm: EKG: ECHO: Stress Test: Cardiac Cath: PCI: CT Surgery: Holter monitor: EPS: PPM: CXR: Chest CT Scan: Physical Exam Const alert and oriented x3 HEENT normocephalic Eyes EOMs intact bilaterally Resp normal respiratory effort Auscultation: wheezes scattered wheezes and throughout and diminished lung sounds right lower Cardio Rate: regular rate Rhythm: regular rhythm Heart Sounds: S1 normal, S2 normal and murmur systolic II/ harsh holo left sternal border and sternal notch; Negative for click or gallop Extremity no pedal edema Psych mental status grossly normal Assessment & Plan Assessment/Plan (1) Aortic valve stenosis: QUALIFIERS: Cardiac valve disease etiology: nonrheumatic Qualified Code(s): I35.0 - Nonrheumatic aortic (valve) stenosis PLAN: Patient's aortic valve stenosis is severe. Peak gradient of 75 mean gradient of 50. She also has an increased septum of 1.8 cm with the posterior wall 1.2 cm. This needs to be taken into account should she undergo aortic valve replacement or TAVR. Will reevaluate the patient in the outpatient setting after she recovers from her COPD exacerbation to determine best next steps as far as evaluation and/or treatment of her aortic valve disease. (2) Tachycardia: PLAN: Patient presented with multifocal atrial tachycardia and atrial fibrillation. She is currently reverted into normal sinus rhythm. She had been controlled in her home environment on verapamil 360 mg daily. We will reinstitute that medication today. She has been maintained on verapamil 120 mg 3 times daily during her hospitalization due to her labile blood pressures. (3) COPD with acute exacerbation: PLAN: Patient COPD exacerbation is being treated treated with IV antibiotics and IV steroids. Her air movement is improving. When she is completely recovered and back to baseline she will be reevaluated in in the [place] [facility] office for further evaluation and treatment options for her aortic valve disease. (4) Non-small cell lung cancer: QUALIFIERS: Laterality: right Qualified Code(s): C34.91 - Malignant neoplasm of unspecified part of right bronchus or lung PLAN: Patient carries a history of non-small cell lung cancer status post right lower lobe resection several years ago by her report. She also reports that she is considered in remission. This will need to be confirmed prior to proceeding with further invasive evaluation and treatment options for her aortic valve. PLAN: Plan 1. Will change verapamil from 120 mg 3 times daily to 360 mg daily. 2. Patient can progress activities as tolerated. 3. Patient should follow-up with the [place] [facility] in 2 to 3 weeks after discharge when she is completely cleared of her COPD exacerbation. 4. The patient should call to schedule that appointment with Dr. Madrid or one of the advanced practitioners. 5. From a cardiovascular standpoint the patient should be able to be discharged once her COPD exacerbation is controlled. Charges/Coding Visit Charges Inpatient E&M: 10807 Subs Hosp L3
--- NOTE | 2024-10-04 12:06 | PN_ITS ---
Subjective Subjective Patient seen and examined. She had no active complaints today and had an uneventful night. Her breathing is improving. She is on 2L of oxygen. Objective Data Objective Data Vital Signs: Vital Signs Temp Pulse Resp BP Pulse Ox O2 Del Method O2 Flow Rate 98.2 F 101 H 18 140/73 H 94 Nasal Cannula 2 10/04/24 09:01 10/04/24 11:26 10/04/24 11:26 10/04/24 09:01 10/04/24 09:01 10/04/24 09:01 10/04/24 09:01 FiO2 30 09/30/24 22:20 Oxygen Flow Rate (L/min) 2 Oxygen Delivery Method Nasal Cannula Weight: 153 lb 7.068 oz Body Mass Index (BMI) 26.3 Intake & Output: Intake and Output for Last 24 Hours 10/02/24 10/03/24 10/04/24 23:59 23:59 23:59 Intake Total 1393.20 / 1509.90 670.28 / 670.28 Output Total 1999 Balance 1393.20 / 1209.90 -1329.72 / -1329.72 Lab / Micro Data 10/04/24 04:49 10/04/24 04:49 Labs: Laboratory Results - last 24 hr 10/04/24 04:49: WBC 7.2, RBC 4.86, Hgb 13.9, Hct 41.4, MCV 85.2, MCH 28.6, MCHC 33.6, RDW Std Deviation 39.8, RDW Coeff of Augustin 12.9, Plt Count 160, MPV 9.9, Immature Gran % (Auto) 0.600, Neut % (Auto) 90.1 H, Lymph % (Auto) 6.4 L, [place] % (Auto) 2.9, Eos % (Auto) 0.0, Baso % (Auto) 0.0, Absolute Neuts (auto) 6.5, A bsolute Lymphs (auto) 0.46 L, Nucleated RBC % 0, Sodium 137, Potassium 4.6, C hloride 94 L, Carbon Dioxide 35.4 H, Anion Gap 8, BUN 21 H, Creatinine 0.58 L, Estim Creat Clear Calc 63.56, Est GFR (MDRD) Non-Af 98, BUN/Creatinine Ratio 36.3 H, Glucose 125 H, Calcium 8.7 Micro: Microbiology 09/29/24 09:15 Sputum, Expectorated/Coughed Gram Stain - Final 09/29/24 09:15 Sputum, Expectorated/Coughed Respiratory Culture - Final Stenotrophomonas maltophilia Pseudomonas aeruginosa 09/29/24 06:05 Mucosa - Nasopharyngeal Respiratory Panel (PCR) - Final 09/29/24 02:30 Mucosa - Nose SARS-CoV-2, Influenza & RSV (PCR) - Final Rhythm Strip Rhythm Strip: Sinus Rhythm Rate: 87 Physical Exam Const alert and oriented x3 Constitutional Narrative: tachycardia has improved. HEENT normocephalic, head/scalp atraumatic, moist oral mucous membranes and oropharynx normal Eyes PERRL and EOMs intact bilaterally Neck supple General: trachea midline Lymph Lymphatic: no lymphedema noted Resp Resp Narrative: mildly diminished breath sounds bibasally, mild wheezing. NO crackles. On 2 L of oxygen by nasal canula Cardio S1 normal heart sound, S2 normal heart sound and no murmurs Cardio Narrative: mild tachycardia, HR at 101. GI normal to inspection, nondistended, normoactive bowel sounds, soft to palpation, non-tender and non-distended Extremity normal capillary refill and no clubbing, cyanosis or edema General Extremity: no tenderness to palpation of joints or extremities Skin General Skin Exam: no breakdown Neuro no focal motor deficits Neuro Narrative: alert, oriented x 3, communicative, moves all extremities spontaneously Motor Exam: general weakness Psych thought process normal and cooperative Appearance: appropriate Assessment & Plan Assessment/Plan (1) Tachycardia: (2) COPD with acute exacerbation: PLAN: Plan #Acute hypoxic and hypercapnic respiratory failure due to COPD exacerbation and pneumonia * sputum cultures growing Pseudomonas * has a history of non-small cell lung cancer. * on IV levaquin * breathing treatment with bronchodilators. Titrate oxygen to maintain sats >90% * Sputum cultures grew stenotrophomonas and Pseudomonas both sensitive to Levaquin * on 3L of oxygen by nasal canula * #Tachycardia * tachycardia has improved and she feels much better today. Cardiology on board. ON verapamil as cardiology thinks it is more of a multifocal atrial tachycardia. * 2D echo done showed severe concentric left ventricular hypertrophy with EF of 70% and stage I diastolic dysfunction as well as severely calcified aortic valve with severe aortic valve stenosis and mean peak gradient of 50 mmHg as well as trivial aortic valve regurgitation. * Cardiology on board. Management as per cardiology. * #Benign essential hypertension * on verapamil #ANxiety and depression: On Ativan nightly. Buspirone also resumed #Restless leg syndrome: On pramipexole #GERD: on PPI DVT prophylaxis: On therapeutic Lovenox Disposition: anticipate dc over the next 24-48 hours. Charges/Coding Visit Charges Inpatient E&M: 56602 Subs Hosp L2
--- NOTE | 2024-10-04 14:27 | EKG12_ITS ---
Test Reason : CP Blood Pressure : */* mmHG Vent. Rate : 103 BPM Atrial Rate : 103 BPM P-R Int : 156 ms QRS Dur : 84 ms QT Int : 344 ms P-R-T Axes : 84 38 76 degrees QTcB Int : 450 ms Sinus tachycardia with Premature atrial complexes Right atrial enlargement Minimal voltage criteria for LVH, may be normal variant ( Sokolow-Martins ) Borderline ECG When compared with ECG of 02-Oct-2024 19:03, Sinus rhythm has replaced Atrial fibrillation Confirmed by Junito Madrid ([id number]), brands editor LEORA RESTREPO ([id number]) on 10/05/2024 8:34:43 AM Referred By: Confirmed By: Junito Madrid
[2024-10-04] MEDS: 0.9% Saline Lock 10 ML Syringe IV ×2 (14:35→22:01)
[2024-10-04] MEDS: LORazepam 1 MG Tablet PO (14:50)
[2024-10-04] MEDS: guaiFENesin 10 ML UDC (200MG/10ML) 20 ML PO (18:12)
[2024-10-04] MEDS: HYDROcodone Bitartrate/Apap 5/325 Tablet PO (18:12)
[2024-10-04] MEDS: LORazepam 0.5 MG Tablet PO (22:02)
[2024-10-04] MEDS: Pramipexole Di-HCl 0.125 MG Tablet PO (22:03)
[2024-10-05] VITALS (11 sets, daily range): BP systolic 123–149; BP diastolic 67–85; PULSE 81–113; RESP 16–22; TEMP 36.5–37.2; O2SAT 93–99; BMI 27.0
[2024-10-05] MEDS: 0.9% Saline Lock 10 ML Syringe IV ×4 (05:35→19:45)
[2024-10-05] MEDS: Verapamil SR 240 MG Tablet 120 MG PO (05:35)
[2024-10-05 06:19] LABS: Absolute Lymphocyte Count 0.47 X10^3/uL (0.83-4.51); Absolute Neutrophil Count 8.2 X10^3/uL (2.0-7.7); Basophil# 0.01 X10^3/uL; Basophil% 0.1 % (0-1); Hematocrit 41.7 % (37-47); Hemoglobin 13.7 g/dL (12.0-15.0); Lymphocyte # 0.47 X10^3/ul (0.83-4.51); Lymphocyte % 5.2 % (19-41); Mean Corp Hgb Conc 32.9 g/dL (32-36); Mean Corpuscular Volume 85.3 fL (81-99); Mean Platelet Vol. 10.6 fl (6.2-12.0); Monocyte# 0.27 X10^3/uL; NRBC Flagged by Analyzer 0 % (0-5); Neutrophil # 8.16 X10^3/uL (2.7-7.7); Neutrophil % 91.1 % (47-70); POSITIVE DIFFERENTIAL YES; Platelet Count 172 K/mm3 (150-450); RBC Distribution Width CV 12.9 % (11.6-14.6); RBC Distribution Width SD 39.9 fl (35.1-43.9); Red Blood Count 4.89 M/mm3 (4.2-5.4)
[2024-10-05 07:04] LABS: Anion Gap 6 (5-15); BUN 23 mg/dL (4-19); Calcium,Total 8.5 mg/dL (7.6-11.0); Carbon Dioxide 36.3 mmol/L (21.0-32.0); Chloride 94 mmol/L (98-108); Creatinine, Serum 0.52 mg/dL (0.70-1.20); EST Glomerular Filtration Rate 101 (>60); Estimated Creatinine Clearance 64.35 ml/min (50-250); Glucose 130 mg/dL (70-99); Potassium 4.7 mmol/L (3.3-5.1); Sodium Level 137 mmol/L (133-145)
[2024-10-05] MEDS: Ipratropium 0.5 MG/2.5 ML SOLUTION INHALATION ×4 (07:15→18:49)
[2024-10-05] MEDS: Sertraline 100 MG Tablet PO (09:28)
[2024-10-05] MEDS: Montelukast 10 MG Tablet PO (09:28)
[2024-10-05] MEDS: Pantoprazole Sodium 20 MG Tablet PO (09:28)
[2024-10-05] MEDS: busPIRone 5 MG Tablet 10 MG PO ×2 (09:28→22:25)
[2024-10-05] MEDS: Enoxaparin 80 MG/0.8 ML Syringe 70 MG SC ×2 (09:29→22:25)
[2024-10-05] MEDS: levoFLOXacin IV 750 MG/150 ML BAG 100 MG IV (09:33)
[2024-10-05] MEDS: Verapamil SR 180 MG CAPSULE PO ×2 (09:53→22:25)
--- NOTE | 2024-10-05 12:33 | PCM.PROGNOTE ---
Subjective Subjective Patient seen and examined. She was seen with her and is by her bedside. She is feeling much better today. She is down to 2L of oxygen. She feels her breathing has improved. Review of systems is otherwise negative today. Objective Data Objective Data Vital Signs: Vital Signs Temp Pulse Resp BP Pulse Ox O2 Del Method O2 Flow Rate 97.7 F L 81 20 H 125/67 H 94 Nasal Cannula 2 10/05/24 11:30 10/05/24 11:30 10/05/24 11:30 10/05/24 11:30 10/05/24 11:30 10/05/24 11:30 10/05/24 11:30 FiO2 30 09/30/24 22:20 Oxygen Flow Rate (L/min) 2 Oxygen Delivery Method Nasal Cannula Weight: 157 lb 10.088 oz Body Mass Index (BMI) 27.0 Intake & Output: Intake and Output for Last 24 Hours 10/03/24 10/04/24 10/05/24 23:59 23:59 23:59 Intake Total 670.28 / 670.28 1030 / 1030 490 / 490 Output Total 1999 / 1999 700 / 700 700 / 700 Balance -1329.72 / -1329.72 330 / 330 -210 / -210 Lab / Micro Data 10/05/24 05:21 10/05/24 05:21 Labs: Laboratory Results - last 24 hr 10/05/24 05:21: WBC 9.0, RBC 4.89, Hgb 13.7, Hct 41.7, MCV 85.3, MCH 28.0, MCHC 32.9, RDW Std Deviation 39.9, RDW Coeff of Augustin 12.9, Plt Count 172, MPV 10.6, Immature Gran % (Auto) 0.600, Neut % (Auto) 91.1 H, Lymph % (Auto) 5.2 L, [place] % (Auto) 3.0, Eos % (Auto) 0.0, Baso % (Auto) 0.1, Absolute Neuts (auto) 8.2 H, Absolute Lymphs (auto) 0.47 L, Nucleated RBC % 0, Sodium 137, Potassium 4.7, Chloride 94 L, Carbon Dioxide 36.3 H, Anion Gap 6, BUN 23 H, Creatinine 0.52 L, Estim Creat Clear Calc 64.35, Est GFR (MDRD) Non-Af 101, BUN/Creatinine Ratio 44.0 H, Glucose 130 H, Calcium 8.5 Micro: Microbiology 09/29/24 09:15 Sputum, Expectorated/Coughed Gram Stain - Final 09/29/24 09:15 Sputum, Expectorated/Coughed Respiratory Culture - Final Stenotrophomonas maltophilia Pseudomonas aeruginosa 09/29/24 06:05 Mucosa - Nasopharyngeal Respiratory Panel (PCR) - Final 09/29/24 02:30 Mucosa - Nose SARS-CoV-2, Influenza & RSV (PCR) - Final Rhythm Strip Rhythm Strip: Sinus Rhythm Rate: 87 Physical Exam Const alert and oriented x3 Constitutional Narrative: tachycardia has improved. Frail. General Appearance: cooperative HEENT normocephalic, head/scalp atraumatic, moist oral mucous membranes and oropharynx normal Eyes PERRL and EOMs intact bilaterally Neck supple General: trachea midline Lymph Lymphatic: no lymphedema noted Resp Resp Narrative: mildly diminished breath sounds bibasally, mild wheezing. NO crackles. On 2L of oxygen by nasal canula Cardio regular rate, regular rhythm, S1 normal heart sound, S2 normal heart sound and no murmurs GI normal to inspection, nondistended, normoactive bowel sounds, soft to palpation, non-tender and non-distended Extremity normal capillary refill and no clubbing, cyanosis or edema General Extremity: no tenderness to palpation of joints or extremities Skin General Skin Exam: no breakdown Neuro no focal motor deficits Neuro Narrative: alert, oriented x 3, communicative, moves all extremities spontaneously Motor Exam: general weakness Psych thought process normal and cooperative Appearance: appropriate Assessment & Plan Assessment/Plan (1) Tachycardia: (2) COPD with acute exacerbation: PLAN: Plan #Acute hypoxic and hypercapnic respiratory failure due to COPD exacerbation and pneumonia sputum cultures growing Pseudomonas has a history of non-small cell lung cancer. on IV levaquin breathing treatment with bronchodilators. Titrate oxygen to maintain sats >90% Sputum cultures grew stenotrophomonas and Pseudomonas both sensitive to Levaquin on 3L of oxygen by nasal canula #Tachycardia tachycardia has improved and she feels much better today. Cardiology on board. ON verapamil as cardiology thinks it is more of a multifocal atrial tachycardia. 2D echo done showed severe concentric left ventricular hypertrophy with EF of 70% and stage I diastolic dysfunction as well as severely calcified aortic valve with severe aortic valve stenosis and mean peak gradient of 50 mmHg as well as trivial aortic valve regurgitation. Cardiology on board. Management as per cardiology. per cardiology, she will need to be worked up for TAVR on outpatient basis once she follows up with cardiology on discharge. #Benign essential hypertension on verapamil #Anxiety and depression: On Ativan nightly and buspirone #Restless leg syndrome: On pramipexole #GERD: on PPI DVT prophylaxis: On therapeutic Lovenox Disposition: anticipate by tomorrow. Charges/Coding Visit Charges Inpatient E&M: 48777 Subs Hosp L2
[2024-10-05] MEDS: HYDROcodone Bitartrate/Apap 5/325 Tablet PO (13:58)
[2024-10-05] MEDS: Acetaminophen 325 MG Tablet 650 MG PO (18:45)
[2024-10-05] MEDS: LORazepam 0.5 MG Tablet PO (19:45)
[2024-10-05] MEDS: guaiFENesin 10 ML UDC (200MG/10ML) 20 ML PO (21:03)
[2024-10-05] MEDS: Mag Hydrox/Al Hydrox/Simeth 30 ML UDC PO (22:25)
[2024-10-05] MEDS: Pramipexole Di-HCl 0.125 MG Tablet PO (22:26)
[2024-10-06] VITALS (14 sets, daily range): BP systolic 103–150; BP diastolic 69–103; PULSE 90–181; RESP 16–20; TEMP 36.6–36.9; O2SAT 94–99; BMI 26.5
[2024-10-06] MEDS: Mag Hydrox/Al Hydrox/Simeth 30 ML UDC PO ×2 (03:54→13:15)
[2024-10-06] MEDS: HYDROcodone Bitartrate/Apap 5/325 Tablet PO ×3 (04:08→21:33)
[2024-10-06 05:04] LABS: Absolute Lymphocyte Count 0.44 X10^3/uL (0.83-4.51); Absolute Neutrophil Count 8.7 X10^3/uL (2.0-7.7); Basophil# 0.01 X10^3/uL; Basophil% 0.1 % (0-1); Hematocrit 43.5 % (37-47); Hemoglobin 14.2 g/dL (12.0-15.0); Lymphocyte # 0.44 X10^3/ul (0.83-4.51); Lymphocyte % 4.6 % (19-41); Mean Corp Hgb Conc 32.6 g/dL (32-36); Mean Corpuscular Hgb 27.7 pg (27.0-32.0); Mean Corpuscular Volume 84.8 fL (81-99); Mean Platelet Vol. 10.2 fl (6.2-12.0); Monocyte# 0.38 X10^3/uL; Monocyte% 3.9 % (0-10); NRBC Flagged by Analyzer 0 % (0-5); Neutrophil # 8.74 X10^3/uL (2.7-7.7); Neutrophil % 90.6 % (47-70); POSITIVE DIFFERENTIAL YES; Platelet Count 176 K/mm3 (150-450); RBC Distribution Width SD 40.3 fl (35.1-43.9); Red Blood Count 5.13 M/mm3 (4.2-5.4); White Blood Count 9.7 K/mm3 (4.4-11.0)
[2024-10-06 05:45] LABS: Anion Gap 7 (5-15); BUN 20 mg/dL (4-19); BUN/Creat Ratio 43.8 RATIO (10-20); Calcium,Total 8.3 mg/dL (7.6-11.0); Carbon Dioxide 36.3 mmol/L (21.0-32.0); Chloride 94 mmol/L (98-108); Creatinine, Serum 0.45 mg/dL (0.70-1.20); EST Glomerular Filtration Rate 104 (>60); Estimated Creatinine Clearance 63.77 ml/min (50-250); Glucose 168 mg/dL (70-99); Potassium 4.5 mmol/L (3.3-5.1); Sodium Level 137 mmol/L (133-145)
[2024-10-06] MEDS: 0.9% Saline Lock 10 ML Syringe IV ×3 (06:02→22:08)
[2024-10-06] MEDS: Ipratropium 0.5 MG/2.5 ML SOLUTION INHALATION ×4 (06:47→19:33)
[2024-10-06] MEDS: levoFLOXacin 750 MG Tablet PO (08:48)
[2024-10-06] MEDS: Verapamil SR 180 MG CAPSULE PO ×2 (08:49→21:34)
[2024-10-06] MEDS: Montelukast 10 MG Tablet PO (08:49)
[2024-10-06] MEDS: Pantoprazole Sodium 20 MG Tablet PO (08:49)
[2024-10-06] MEDS: busPIRone 5 MG Tablet 10 MG PO ×2 (08:49→21:34)
[2024-10-06] MEDS: Sertraline 100 MG Tablet PO (08:49)
[2024-10-06] MEDS: Enoxaparin 80 MG/0.8 ML Syringe 70 MG SC ×2 (08:49→21:34)
[2024-10-06] MEDS: Metoprolol Tartrate 5 MG/5 ML Vial IV (13:25)
--- NOTE | 2024-10-06 14:22 | PN.CARD_ITS ---
Subjective Subjective Reports palpitations with these episodes. Objective Data Vital Signs: Vital Signs Temp Pulse Resp BP Pulse Ox O2 Del Method O2 Flow Rate 98.4 F 94 18 130/69 H 96 Nasal Cannula 3 10/06/24 14:15 10/06/24 13:41 10/06/24 11:08 10/06/24 13:41 10/06/24 10:37 10/06/24 14:00 10/06/24 14:00 FiO2 30 09/30/24 22:20 Oxygen Flow Rate (L/min) 3 Oxygen Delivery Method Nasal Cannula Weight: 154 lb 8.705 oz Body Mass Index (BMI) 26.5 Intake & Output: Intake and Output for Last 24 Hours 10/04/24 10/05/24 10/06/24 23:59 23:59 23:59 Intake Total 1030 / 1030 490 / 490 480 / 480 Output Total 700 / 700 700 / 1400 700 / 700 Balance 330 / 330 -210 / -910 -220 / -220 Lab / Micro Data 10/06/24 04:35 10/06/24 04:35 Labs: Laboratory Results - last 24 hr 10/06/24 04:35: WBC 9.7, RBC 5.13, Hgb 14.2, Hct 43.5, MCV 84.8, MCH 27.7, MCHC 32.6, RDW Std Deviation 40.3, RDW Coeff of Augustin 13.0, Plt Count 176, MPV 10.2, Immature Gran % (Auto) 0.800, Neut % (Auto) 90.6 H, Lymph % (Auto) 4.6 L, [place] % (Auto) 3.9, Eos % (Auto) 0.0, Baso % (Auto) 0.1, Absolute Neuts (auto) 8.7 H, A bsolute Lymphs (auto) 0.44 L, Nucleated RBC % 0, Sodium 137, Potassium 4.5, C hloride 94 L, Carbon Dioxide 36.3 H, Anion Gap 7, BUN 20 H, Creatinine 0.45 L, Estim Creat Clear Calc 63.77, Est GFR (MDRD) Non-Af 104, BUN/Creatinine Ratio 43.8 H, Glucose 168 H, Calcium 8.3 Rhythm Strip Rhythm Strip: Sinus Rhythm Rate: 87 Cardiology Labs/Tests 10/06/24 04:35: WBC 9.7, RBC 5.13, Hgb 14.2, Hct 43.5, MCV 84.8, MCH 27.7, MCHC 32.6, Plt Count 176, MPV 10.2, Immature Gran % (Auto) 0.800, Neut % (Auto) 90.6 H, Lymph % (Auto) 4.6 L, [place] % (Auto) 3.9, Eos % (Auto) 0.0, Baso % (Auto) 0.1, Absolute Neuts (auto) 8.7 H, Nucleated RBC % 0, Sodium 137, Potassium 4.5, C hloride 94 L, Carbon Dioxide 36.3 H, Anion Gap 7, BUN 20 H, Creatinine 0.45 L, Est GFR (MDRD) Non-Af 104, BUN/Creatinine Ratio 43.8 H, Glucose 168 H, Calcium 8.3 Rhythm: EKG: ECHO: Stress Test: Cardiac Cath: PCI: CT Surgery: Holter monitor: EPS: PPM: CXR: Chest CT Scan: Physical Exam Narrative General?alert oriented HEENT- normal extraocular movements Neck supple no JVD Cardiovascular- normal S1-S2, no murmurs Pulmonary- clear to auscultation bilaterally Abdomen- soft to palpation, normal sounds Extremities- no edema Musculoskeletal- no tenderness no swelling Neurological -alert oriented Psych -normal affect Assessment & Plan Assessment/Plan (1) Aortic valve stenosis: QUALIFIERS: Cardiac valve disease etiology: nonrheumatic Q ualified Code(s): I35.0 - Nonrheumatic aortic (valve) stenosis PLAN: She has severe aortic valve stenosis SASHA 0.8 cm? that is likely why she is symptomatic when she becomes tachycardic. She will need to be seen in the valve clinic as an outpatient for consideration of surgical aortic valve replacement versus TAVR. (2) Tachycardia: PLAN: Unclear if this is atrial flutter versus sinus tachycardia versus MAT. If she has a recurrent episode we will consider restarting amiodarone gtt with the plan to transition to oral Multaq and 30-day event monitor for further evaluation. If it turns out to be atrial flutter she will need anticoagulation for stroke evaluation. Charges/Coding Visit Charges Inpatient E&M: 21378 Subs Hosp L3 Charges/Coding Visit Charges Inpatient E&M: 29334 Subs Hosp L3
[2024-10-06] MEDS: Acetaminophen 325 MG Tablet 650 MG PO (17:15)
--- NOTE | 2024-10-06 17:20 | PN_ITS ---
Subjective Subjective Patient seen and examined today. She was feeling better and had no complaints. She was on 2 L of oxygen. I had proposed discharge today but she said she wanted 1 more day to work with therapy. Later in the day patient's heart rate went high into the 160s and 170s but subsequently converted spontaneously to normal sinus rhythm. EKG done showed questionable A-fib. She was seen with her nurse at the bedside. Objective Data Objective Data Vital Signs: Vital Signs Temp Pulse Resp BP Pulse Ox O2 Del Method O2 Flow Rate 98.4 F 100 20 H 130/69 H 96 Nasal Cannula 3 10/06/24 14:15 10/06/24 17:13 10/06/24 17:13 10/06/24 13:41 10/06/24 10:37 10/06/24 14:00 10/06/24 14:00 FiO2 30 09/30/24 22:20 Oxygen Flow Rate (L/min) 3 Oxygen Delivery Method Nasal Cannula Weight: 154 lb 8.705 oz Body Mass Index (BMI) 26.5 Intake & Output: Intake and Output for Last 24 Hours 10/04/24 10/05/24 10/06/24 23:59 23:59 23:59 Intake Total 1030 / 1030 490 / 490 480 / 480 Output Total 700 / 700 700 / 1400 700 / 700 Balance 330 / 330 -210 / -910 -220 / -220 Lab / Micro Data 10/06/24 04:35 10/06/24 04:35 Labs: Laboratory Results - last 24 hr 10/06/24 04:35: WBC 9.7, RBC 5.13, Hgb 14.2, Hct 43.5, MCV 84.8, MCH 27.7, MCHC 32.6, RDW Std Deviation 40.3, RDW Coeff of Augustin 13.0, Plt Count 176, MPV 10.2, Immature Gran % (Auto) 0.800, Neut % (Auto) 90.6 H, Lymph % (Auto) 4.6 L, [place] % (Auto) 3.9, Eos % (Auto) 0.0, Baso % (Auto) 0.1, Absolute Neuts (auto) 8.7 H, A bsolute Lymphs (auto) 0.44 L, Nucleated RBC % 0, Sodium 137, Potassium 4.5, C hloride 94 L, Carbon Dioxide 36.3 H, Anion Gap 7, BUN 20 H, Creatinine 0.45 L, Estim Creat Clear Calc 63.77, Est GFR (MDRD) Non-Af 104, BUN/Creatinine Ratio 43.8 H, Glucose 168 H, Calcium 8.3 Micro: Microbiology 09/29/24 09:15 Sputum, Expectorated/Coughed Gram Stain - Final 09/29/24 09:15 Sputum, Expectorated/Coughed Respiratory Culture - Final Stenotrophomonas maltophilia Pseudomonas aeruginosa 09/29/24 06:05 Mucosa - Nasopharyngeal Respiratory Panel (PCR) - Final 09/29/24 02:30 Mucosa - Nose SARS-CoV-2, Influenza & RSV (PCR) - Final Rhythm Strip Rhythm Strip: Sinus Rhythm Rate: 87 Physical Exam Const alert and oriented x3 Constitutional Narrative: frail General Appearance: cooperative HEENT normocephalic, head/scalp atraumatic, moist oral mucous membranes and oropharynx normal Eyes PERRL and EOMs intact bilaterally Neck supple General: trachea midline Lymph Lymphatic: no lymphedema noted Resp Resp Narrative: mildly diminished breath sounds bibasally, mild wheezing. NO crackles. On 3 L of oxygen by nasal canula Cardio regular rate, regular rhythm, S1 normal heart sound, S2 normal heart sound and no murmurs Cardio Narrative: m heart rate went up into the 170s and 180s but converted to normal sinus rhythm spontaneously. GI normal to inspection, nondistended, normoactive bowel sounds, soft to palpation, non-tender and non-distended Extremity normal capillary refill and no clubbing, cyanosis or edema General Extremity: no tenderness to palpation of joints or extremities Skin General Skin Exam: no breakdown Neuro no focal motor deficits Neuro Narrative: alert, oriented x 3, communicative, moves all extremities spontaneously Motor Exam: general weakness Psych thought process normal and cooperative Appearance: appropriate Assessment & Plan Assessment/Plan (1) Tachycardia: (2) COPD with acute exacerbation: PLAN: Plan #Acute hypoxic and hypercapnic respiratory failure due to COPD exacerbation and pneumonia * sputum cultures growing Pseudomonas * has a history of non-small cell lung cancer. * on IV levaquin; switch to p.o. Levaquin today. * breathing treatment with bronchodilators. Titrate oxygen to maintain sats >90% * Sputum cultures grew stenotrophomonas and Pseudomonas both sensitive to Levaquin * on 3L of oxygen by nasal canula * Also on IV Solu-Medrol * #Tachycardia * Patient went back into tachycardia today with heart rate going as high as the 180s. * EKG showed A-fib * 2D echo done showed severe concentric left ventricular hypertrophy with EF of 70% and stage I diastolic dysfunction as well as severely calcified aortic valve with severe aortic valve stenosis and mean peak gradient of 50 mmHg as well as trivial aortic valve regurgitation. * Cardiology on board. Management as per cardiology. * per cardiology, she will need to be worked up for TAVR on outpatient basis once she follows up with cardiology on discharge. * Patient on verapamil. Cardiology asked to see her again today. Per cardiology and she has converted to normal sinus rhythm will monitor for now and continue the verapamil. If this recurs she is to be placed on amiodarone drip. * #Benign essential hypertension * on verapamil #Anxiety and depression: On Ativan nightly and buspirone #Restless leg syndrome: On pramipexole #GERD: on PPI DVT prophylaxis: On therapeutic Lovenox Charges/Coding Visit Charges Inpatient E&M: 67929 Subs Hosp L2
[2024-10-06] MEDS: LORazepam 0.5 MG Tablet PO (21:34)
[2024-10-06] MEDS: Pramipexole Di-HCl 0.125 MG Tablet PO (21:35)
[2024-10-06] MEDS: Methylprednisolone Sod Succ 40 MG/ML VIAL IV (22:07)
[2024-10-07] VITALS (14 sets, daily range): BP systolic 122–182; BP diastolic 58–93; PULSE 84–122; RESP 16–22; TEMP 36.6–37.1; O2SAT 93–98; BMI 26.5
[2024-10-07] MEDS: Ipratropium 0.5 MG/2.5 ML SOLUTION INHALATION ×5 (02:58→19:37)
[2024-10-07 05:14] LABS: Absolute Lymphocyte Count 0.39 X10^3/uL (0.83-4.51); Basophil# 0.02 X10^3/uL; Basophil% 0.2 % (0-1); Hematocrit 41.4 % (37-47); Hemoglobin 13.5 g/dL (12.0-15.0); Lymphocyte # 0.39 X10^3/ul (0.83-4.51); Lymphocyte % 4.3 % (19-41); Mean Corp Hgb Conc 32.6 g/dL (32-36); Mean Corpuscular Hgb 28.2 pg (27.0-32.0); Mean Corpuscular Volume 86.6 fL (81-99); Mean Platelet Vol. 9.9 fl (6.2-12.0); Monocyte# 0.49 X10^3/uL; Monocyte% 5.4 % (0-10); NRBC Flagged by Analyzer 0 % (0-5); Neutrophil # 8.04 X10^3/uL (2.7-7.7); Neutrophil % 89.2 % (47-70); POSITIVE DIFFERENTIAL YES; Platelet Count 176 K/mm3 (150-450); RBC Distribution Width SD 41.1 fl (35.1-43.9); Red Blood Count 4.78 M/mm3 (4.2-5.4)
[2024-10-07] MEDS: Methylprednisolone Sod Succ 40 MG/ML VIAL IV ×3 (06:23→21:33)
[2024-10-07] MEDS: 0.9% Saline Lock 10 ML Syringe IV (06:24)
[2024-10-07 06:41] LABS: Anion Gap 6 (5-15); BUN 19 mg/dL (4-19); BUN/Creat Ratio 37.1 RATIO (10-20); Calcium,Total 8.1 mg/dL (7.6-11.0); Carbon Dioxide 38.2 mmol/L (21.0-32.0); Chloride 93 mmol/L (98-108); EST Glomerular Filtration Rate 101 (>60); Estimated Creatinine Clearance 63.81 ml/min (50-250); Glucose 192 mg/dL (70-99); Potassium 4.8 mmol/L (3.3-5.1); Sodium Level 137 mmol/L (133-145)
--- NOTE | 2024-10-07 08:07 | CASEMGMT ---
Social Work Pt is active with [facility] [employer] [facility]. VM left with [facility] informing of admission and potential discharge. Discharge orders to be faxed to [facility] (fax [phone]) at time of discharge. Green Sheet placed on chart to facilitate weekend discharge. LOLA Escobar
[2024-10-07] MEDS: levoFLOXacin 750 MG Tablet PO (08:54)
[2024-10-07] MEDS: busPIRone 5 MG Tablet 10 MG PO ×2 (08:55→21:29)
[2024-10-07] MEDS: Pantoprazole Sodium 20 MG Tablet PO (08:55)
[2024-10-07] MEDS: Enoxaparin 80 MG/0.8 ML Syringe 70 MG SC ×2 (08:55→21:33)
[2024-10-07] MEDS: Verapamil SR 180 MG CAPSULE PO ×2 (08:56→21:29)
[2024-10-07] MEDS: Montelukast 10 MG Tablet PO (08:56)
[2024-10-07] MEDS: Sertraline 100 MG Tablet PO (08:56)
[2024-10-07 09:25] LABS: Magnesium 2.5 mg/dL (1.5-2.2)
--- NOTE | 2024-10-07 10:59 | PN.CARD_ITS ---
Objective Data No further episodes overnight Vital Signs: Vital Signs Temp Pulse Resp BP Pulse Ox O2 Del Method O2 Flow Rate 98 F 93 16 138/75 H 98 Nasal Cannula 3 10/07/24 08:53 10/07/24 08:53 10/07/24 08:53 10/07/24 08:53 10/07/24 08:53 10/07/24 08:53 10/07/24 08:53 FiO2 30 09/30/24 22:20 Oxygen Flow Rate (L/min) 3 Oxygen Delivery Method Nasal Cannula Weight: 154 lb 12.232 oz Body Mass Index (BMI) 26.5 Intake & Output: Intake and Output for Last 24 Hours 10/05/24 10/06/24 10/07/24 23:59 23:59 23:59 Intake Total 490 / 490 480 / 480 Output Total 700 / 1400 700 / 700 250 / 250 Balance -210 / -910 -220 / -220 -250 / -250 Lab / Micro Data 10/07/24 03:55 10/07/24 03:55 Labs: Laboratory Results - last 24 hr 10/07/24 03:55: WBC 9.0, RBC 4.78, Hgb 13.5, Hct 41.4, MCV 86.6, MCH 28.2, MCHC 32.6, RDW Std Deviation 41.1, RDW Coeff of Augustin 13.0, Plt Count 176, MPV 9.9, Immature Gran % (Auto) 0.900, Neut % (Auto) 89.2 H, Lymph % (Auto) 4.3 L, [place] % (Auto) 5.4, Eos % (Auto) 0.0, Baso % (Auto) 0.2, Absolute Neuts (auto) 8.0 H, A bsolute Lymphs (auto) 0.39 L, Nucleated RBC % 0, Sodium 137, Potassium 4.8, C hloride 93 L, Carbon Dioxide 38.2 H, Anion Gap 6, BUN 19, Creatinine 0.50 L, Estim Creat Clear Calc 63.81, Est GFR (MDRD) Non-Af 101, BUN/Creatinine Ratio 37.1 H, Glucose 192 H, Calcium 8.1, Magnesium 2.5 H Rhythm Strip Rhythm Strip: Sinus Rhythm Rate: 87 Cardiology Labs/Tests 10/07/24 03:55: WBC 9.0, RBC 4.78, Hgb 13.5, Hct 41.4, MCV 86.6, MCH 28.2, MCHC 32.6, Plt Count 176, MPV 9.9, Immature Gran % (Auto) 0.900, Neut % (Auto) 89.2 H , Lymph % (Auto) 4.3 L, [place] % (Auto) 5.4, Eos % (Auto) 0.0, Baso % (Auto) 0.2, Absolute Neuts (auto) 8.0 H, Nucleated RBC % 0, Sodium 137, Potassium 4.8, C hloride 93 L, Carbon Dioxide 38.2 H, Anion Gap 6, BUN 19, Creatinine 0.50 L, Est GFR (MDRD) Non-Af 101, BUN/Creatinine Ratio 37.1 H, Glucose 192 H, Calcium 8.1, Magnesium 2.5 H Rhythm: EKG: ECHO: Stress Test: Cardiac Cath: PCI: CT Surgery: Holter monitor: EPS: PPM: CXR: Chest CT Scan: Physical Exam Narrative General?alert oriented HEENT- normal extraocular movements Neck supple no JVD Cardiovascular- normal S1-S2 regular, 4/6 systolic murmur Pulmonary- clear to auscultation bilaterally Abdomen- soft to palpation, normal sounds Extremities- no edema Musculoskeletal- no tenderness no swelling Neurological -alert oriented Psych -normal affect Assessment & Plan Assessment/Plan (1) Aortic valve stenosis: QUALIFIERS: Cardiac valve disease etiology: nonrheumatic Q ualified Code(s): I35.0 - Nonrheumatic aortic (valve) stenosis PLAN: She has severe aortic valve stenosis SASHA 0.8 cm? that is likely why she is symptomatic when she becomes tachycardic. She will need to be seen in the valve clinic as an outpatient for consideration of surgical aortic valve replacement versus TAVR. Started this conversation with her. Given her COPD severity she may be a candidate for TAVR despite her young age. She will need to be seen in the valve clinic. (2) Tachycardia: PLAN: No further episodes overnight. Unclear if this is atrial flutter versus sinus tachycardia versus MAT. If she has a recurrent episode we will consider restarting amiodarone gtt with the plan to transition to oral Multaq and 30-day event monitor for further evaluation. If it turns out to be atrial flutter she will need fpc anticoagulation for stroke prevention
[2024-10-07] MEDS: HYDROcodone Bitartrate/Apap 5/325 Tablet PO ×2 (11:04→21:26)
--- NOTE | 2024-10-07 14:13 | PN_ITS ---
Subjective Subjective Patient seen and examined. She had no complaints and had an uneventful night. Her tachycardia did not recur again. Objective Data Objective Data Vital Signs: Vital Signs Temp Pulse Resp BP Pulse Ox O2 Del Method O2 Flow Rate 98 F 104 H 19 H 138/75 H 96 Nasal Cannula 2 10/07/24 08:53 10/07/24 11:39 10/07/24 11:39 10/07/24 08:53 10/07/24 13:52 10/07/24 13:37 10/07/24 13:52 FiO2 30 09/30/24 22:20 Oxygen Flow Rate (L/min) 2 Oxygen Delivery Method Nasal Cannula Weight: 154 lb 12.232 oz Body Mass Index (BMI) 26.5 Intake & Output: Intake and Output for Last 24 Hours 10/05/24 10/06/24 10/07/24 23:59 23:59 23:59 Intake Total 490 / 490 480 / 480 240 / 240 Output Total 700 / 1400 700 / 700 250 / 250 Balance -210 / -910 -220 / -220 -10 / -10 Lab / Micro Data 10/07/24 03:55 10/07/24 03:55 Labs: Laboratory Results - last 24 hr 10/07/24 03:55: WBC 9.0, RBC 4.78, Hgb 13.5, Hct 41.4, MCV 86.6, MCH 28.2, MCHC 32.6, RDW Std Deviation 41.1, RDW Coeff of Augustin 13.0, Plt Count 176, MPV 9.9, Immature Gran % (Auto) 0.900, Neut % (Auto) 89.2 H, Lymph % (Auto) 4.3 L, Crisp % (Auto) 5.4, Eos % (Auto) 0.0, Baso % (Auto) 0.2, Absolute Neuts (auto) 8.0 H, A bsolute Lymphs (auto) 0.39 L, Nucleated RBC % 0, Sodium 137, Potassium 4.8, C hloride 93 L, Carbon Dioxide 38.2 H, Anion Gap 6, BUN 19, Creatinine 0.50 L, Estim Creat Clear Calc 63.81, Est GFR (MDRD) Non-Af 101, BUN/Creatinine Ratio 37.1 H, Glucose 192 H, Calcium 8.1, Magnesium 2.5 H Micro: Microbiology 09/29/24 09:15 Sputum, Expectorated/Coughed Gram Stain - Final 09/29/24 09:15 Sputum, Expectorated/Coughed Respiratory Culture - Final Stenotrophomonas maltophilia Pseudomonas aeruginosa 09/29/24 06:05 Mucosa - Nasopharyngeal Respiratory Panel (PCR) - Final 09/29/24 02:30 Mucosa - Nose SARS-CoV-2, Influenza & RSV (PCR) - Final Rhythm Strip Rhythm Strip: Sinus Rhythm Rate: 87 Physical Exam Const alert and oriented x3 Constitutional Narrative: frail General Appearance: cooperative HEENT normocephalic, head/scalp atraumatic, moist oral mucous membranes and oropharynx normal Eyes PERRL and EOMs intact bilaterally Neck supple General: trachea midline Lymph Lymphatic: no lymphedema noted Resp Resp Narrative: mildly diminished breath sounds bibasally, mild wheezing. NO crackles. On 3 L of oxygen by nasal canula Cardio regular rate, regular rhythm, S1 normal heart sound, S2 normal heart sound and no murmurs GI normal to inspection, nondistended, normoactive bowel sounds, soft to palpation, non-tender and non-distended Extremity normal capillary refill and no clubbing, cyanosis or edema General Extremity: no tenderness to palpation of joints or extremities Skin General Skin Exam: no breakdown Neuro no focal motor deficits Neuro Narrative: alert, oriented x 3, communicative, moves all extremities spontaneously Motor Exam: general weakness Psych thought process normal and cooperative Appearance: appropriate Assessment & Plan Assessment/Plan (1) Tachycardia: (2) COPD with acute exacerbation: PLAN: Plan #Acute hypoxic and hypercapnic respiratory failure due to COPD exacerbation and pneumonia * sputum cultures growing Pseudomonas * has a history of non-small cell lung cancer. * Now on p.o. levofloxacin. * breathing treatment with bronchodilators. Titrate oxygen to maintain sats >90% * Sputum cultures grew stenotrophomonas and Pseudomonas both sensitive to Levaquin * on 3L of oxygen by nasal canula * Also on IV Solu-Medrol * #Tachycardia * Patient went back into tachycardia today with heart rate going as high as the 180s. * EKG showed A-fib * 2D echo done showed severe concentric left ventricular hypertrophy with EF of 70% and stage I diastolic dysfunction as well as severely calcified aortic valve with severe aortic valve stenosis and mean peak gradient of 50 mmHg as well as trivial aortic valve regurgitation. * Cardiology on board. Management as per cardiology. * per cardiology, she will need to be worked up for TAVR on outpatient basis once she follows up with cardiology on discharge. * Patient on verapamil. Per cardiology and she has converted to normal sinus rhythm will monitor for now and continue the verapamil. If this recurs she is to be placed on amiodarone drip. * Heart rate has remained stable. * #Benign essential hypertension * on verapamil #Anxiety and depression: On Ativan nightly and buspirone #Restless leg syndrome: On pramipexole #GERD: on PPI DVT prophylaxis: On therapeutic Lovenox Disposition: Anticipate DC tomorrow by tomorrow. Charges/Coding Visit Charges Inpatient E&M: 29968 Subs Hosp L2
[2024-10-07] MEDS: LORazepam 0.5 MG Tablet PO (18:12)
[2024-10-07] MEDS: Acetaminophen 325 MG Tablet 650 MG PO (18:16)
[2024-10-07] MEDS: MELATONIN 3 MG TABLET PO (21:26)
[2024-10-07] MEDS: guaiFENesin 10 ML UDC (200MG/10ML) 20 ML PO (21:26)
[2024-10-07] MEDS: Pramipexole Di-HCl 0.125 MG Tablet PO (21:29)
[2024-10-07] MEDS: Fluticasone 0.05% 1 SPRAY NASAL.SRY NASAL (21:30)
[2024-10-08] VITALS (8 sets, daily range): BP systolic 127–175; BP diastolic 69–86; PULSE 91–184; RESP 19–20; TEMP 36.2–36.9; O2SAT 96–99; BMI 26.9
[2024-10-08] MEDS: 0.9% Saline Lock 10 ML Syringe IV ×3 (05:12→13:42)
[2024-10-08] MEDS: Methylprednisolone Sod Succ 40 MG/ML VIAL IV ×3 (05:12→21:16)
[2024-10-08 07:03] LABS: Absolute Lymphocyte Count 0.41 X10^3/uL (0.83-4.51); Absolute Neutrophil Count 7.2 X10^3/uL (2.0-7.7); Basophil# 0.02 X10^3/uL; Basophil% 0.2 % (0-1); Hematocrit 41.6 % (37-47); Hemoglobin 13.2 g/dL (12.0-15.0); Lymphocyte # 0.41 X10^3/ul (0.83-4.51); Lymphocyte % 5.1 % (19-41); Mean Corp Hgb Conc 31.7 g/dL (32-36); Mean Corpuscular Hgb 27.3 pg (27.0-32.0); Mean Corpuscular Volume 86.1 fL (81-99); Monocyte# 0.38 X10^3/uL; Monocyte% 4.7 % (0-10); NRBC Flagged by Analyzer 0 % (0-5); Neutrophil # 7.19 X10^3/uL (2.7-7.7); Neutrophil % 89.1 % (47-70); POSITIVE DIFFERENTIAL YES; Platelet Count 168 K/mm3 (150-450); RBC Distribution Width SD 40.7 fl (35.1-43.9); Red Blood Count 4.83 M/mm3 (4.2-5.4); White Blood Count 8.1 K/mm3 (4.4-11.0)
[2024-10-08 07:32] LABS: Anion Gap 7 (5-15); BUN 18 mg/dL (4-19); BUN/Creat Ratio 34.4 RATIO (10-20); Calcium,Total 8.1 mg/dL (7.6-11.0); Carbon Dioxide 38.6 mmol/L (21.0-32.0); Chloride 92 mmol/L (98-108); Creatinine, Serum 0.51 mg/dL (0.70-1.20); EST Glomerular Filtration Rate 101 (>60); Estimated Creatinine Clearance 64.27 ml/min (50-250); Glucose 179 mg/dL (70-99); Potassium 4.6 mmol/L (3.3-5.1); Sodium Level 138 mmol/L (133-145)
[2024-10-08] MEDS: Ipratropium 0.5 MG/2.5 ML SOLUTION INHALATION (08:02)
[2024-10-08] MEDS: HYDROcodone Bitartrate/Apap 5/325 Tablet PO ×2 (08:40→21:01)
[2024-10-08] MEDS: Montelukast 10 MG Tablet PO (08:48)
[2024-10-08] MEDS: Pantoprazole Sodium 20 MG Tablet PO (08:48)
[2024-10-08] MEDS: Sertraline 100 MG Tablet PO (08:49)
[2024-10-08] MEDS: busPIRone 5 MG Tablet 10 MG PO ×2 (08:49→21:03)
[2024-10-08] MEDS: Verapamil SR 180 MG CAPSULE PO ×2 (08:49→21:03)
--- NOTE | 2024-10-08 08:57 | EKG12_ITS ---
Test Reason : TACHYCARDIA Blood Pressure : */* mmHG Vent. Rate : 168 BPM Atrial Rate : * BPM P-R Int : * ms QRS Dur : 78 ms QT Int : 278 ms P-R-T Axes : * 58 85 degrees QTcB Int : 464 ms Critical Test Result: High HR Atrial fibrillation with rapid ventricular response Minimal voltage criteria for LVH, may be normal variant ( Sokolow-Martins ) Nonspecific ST abnormality Abnormal ECG When compared with ECG of 06-Oct-2024 13:31, MANUAL COMPARISON REQUIRED DATA IS UNCONFIRMED Confirmed by FRANCA OWEN, VINNY ([id number]), market editor MAGALIE RAMIREZ ([id number]) on 10/10/2024 8:27:24 AM Referred By: Confirmed By: VINNY SCHULTE MD
[2024-10-08] MEDS: Enoxaparin 80 MG/0.8 ML Syringe 70 MG SC ×2 (09:00→21:08)
[2024-10-08] MEDS: Metoprolol Tartrate 5 MG/5 ML Vial IV (09:11)
[2024-10-08] MEDS: guaiFENesin 10 ML UDC (200MG/10ML) 20 ML PO (10:00)
--- NOTE | 2024-10-08 10:58 | PN.CARD_ITS ---
Objective Data an episode of tachycardia today Vital Signs: Vital Signs Temp Pulse Resp BP Pulse Ox O2 Del Method O2 Flow Rate 98.1 F 184 H 20 H 146/80 H 96 Nasal Cannula 2 10/08/24 08:41 10/08/24 09:11 10/08/24 08:41 10/08/24 08:41 10/08/24 08:41 10/08/24 08:41 10/08/24 08:41 FiO2 30 09/30/24 22:20 Oxygen Flow Rate (L/min) 2 Oxygen Delivery Method Nasal Cannula Weight: 157 lb 3.033 oz Body Mass Index (BMI) 26.9 Intake & Output: Intake and Output for Last 24 Hours 10/06/24 10/07/24 10/08/24 23:59 23:59 23:59 Intake Total 480 / 480 480 / 480 Output Total 700 / 700 250 / 650 400 / 400 Balance -220 / -220 230 / -170 -400 / -400 Lab / Micro Data 10/08/24 06:50 10/08/24 06:50 Labs: Laboratory Results - last 24 hr 10/08/24 06:50: WBC 8.1, RBC 4.83, Hgb 13.2, Hct 41.6, MCV 86.1, MCH 27.3, MCHC 31.7 L, RDW Std Deviation 40.7, RDW Coeff of Augustin 13.0, Plt Count 168, MPV 10.0, Immature Gran % (Auto) 0.900, Neut % (Auto) 89.1 H, Lymph % (Auto) 5.1 L, Stanley % (Auto) 4.7, Eos % (Auto) 0.0, Baso % (Auto) 0.2, Absolute Neuts (auto) 7.2, A bsolute Lymphs (auto) 0.41 L, Nucleated RBC % 0, Sodium 138, Potassium 4.6, C hloride 92 L, Carbon Dioxide 38.6 H, Anion Gap 7, BUN 18, Creatinine 0.51 L, Estim Creat Clear Calc 64.27, Est GFR (MDRD) Non-Af 101, BUN/Creatinine Ratio 34.4 H, Glucose 179 H, Calcium 8.1 Rhythm Strip Rhythm Strip: Sinus Rhythm Rate: 87 Cardiology Labs/Tests 10/08/24 06:50: WBC 8.1, RBC 4.83, Hgb 13.2, Hct 41.6, MCV 86.1, MCH 27.3, MCHC 31.7 L, Plt Count 168, MPV 10.0, Immature Gran % (Auto) 0.900, Neut % (Auto) 89.1 H, Lymph % (Auto) 5.1 L, Stanley % (Auto) 4.7, Eos % (Auto) 0.0, Baso % (Auto) 0.2, Absolute Neuts (auto) 7.2, Nucleated RBC % 0, Sodium 138, Potassium 4.6, C hloride 92 L, Carbon Dioxide 38.6 H, Anion Gap 7, BUN 18, Creatinine 0.51 L, Est GFR (MDRD) Non-Af 101, BUN/Creatinine Ratio 34.4 H, Glucose 179 H, Calcium 8.1 Rhythm: EKG: ECHO: Stress Test: Cardiac Cath: PCI: CT Surgery: Holter monitor: EPS: PPM: CXR: Chest CT Scan: Physical Exam Narrative General?alert oriented HEENT- normal extraocular movements, normocephalic Neck supple no JVD Cardiovascular- normal S1-S2 regular, 4/6 systolic murmur Pulmonary- clear to auscultation bilaterally Abdomen- soft to palpation, normal sounds Extremities- no edema, not tender Musculoskeletal- no tenderness no swelling Neurological -alert oriented Psych -normal affect Assessment & Plan Assessment/Plan (1) Aortic valve stenosis: QUALIFIERS: Cardiac valve disease etiology: nonrheumatic Q ualified Code(s): I35.0 - Nonrheumatic aortic (valve) stenosis PLAN: She has severe aortic valve stenosis SASHA 0.8 cm? that is likely why she is symptomatic when she becomes tachycardic. She will need to be seen in the valve clinic as an outpatient for consideration of surgical aortic valve replacement versus TAVR. Started this conversation with her. Given her COPD severity she may be a candidate for TAVR despite her young age. She will need to be seen in the valve clinic. (2) Afib: PLAN: Paroxysmal atrial fibrillation Had an episode of tachycardia this morning, EKG showed A-fib with RVR. Converted into normal sinus rhythm after IV metoprolol. At this point recommend long-term anticoagulation. Will transition to Eliquis/Xarelto pending cost. Start Multaq given recurrent symptomatic episodes. She will need to be followed up by cardiology in the office. Will also need a 30-day event monitor to determine A-fib burden. .
--- NOTE | 2024-10-08 11:00 | PN_ITS ---
Subjective Subjective Patient seen and examined. Patient went into A-fib with RVR today with a heart rate going up to the 180s and 190s. She did complain of palpitations and some shortness of breath at time of my review. I had hoped to be able to discharge her today but in light of this A-fib with RVR decision for discharge canceled. Objective Data Objective Data Vital Signs: Vital Signs Temp Pulse Resp BP Pulse Ox O2 Del Method O2 Flow Rate 98.1 F 184 H 20 H 146/80 H 96 Nasal Cannula 2 10/08/24 08:41 10/08/24 09:11 10/08/24 08:41 10/08/24 08:41 10/08/24 08:41 10/08/24 08:41 10/08/24 08:41 FiO2 30 09/30/24 22:20 Oxygen Flow Rate (L/min) 2 Oxygen Delivery Method Nasal Cannula Weight: 157 lb 3.033 oz Body Mass Index (BMI) 26.9 Intake & Output: Intake and Output for Last 24 Hours 10/06/24 10/07/24 10/08/24 23:59 23:59 23:59 Intake Total 480 / 480 480 / 480 Output Total 700 / 700 250 / 650 400 / 400 Balance -220 / -220 230 / -170 -400 / -400 Lab / Micro Data 10/08/24 06:50 10/08/24 06:50 Labs: Laboratory Results - last 24 hr 10/08/24 06:50: WBC 8.1, RBC 4.83, Hgb 13.2, Hct 41.6, MCV 86.1, MCH 27.3, MCHC 31.7 L, RDW Std Deviation 40.7, RDW Coeff of Augustin 13.0, Plt Count 168, MPV 10.0, Immature Gran % (Auto) 0.900, Neut % (Auto) 89.1 H, Lymph % (Auto) 5.1 L, Delta % (Auto) 4.7, Eos % (Auto) 0.0, Baso % (Auto) 0.2, Absolute Neuts (auto) 7.2, A bsolute Lymphs (auto) 0.41 L, Nucleated RBC % 0, Sodium 138, Potassium 4.6, C hloride 92 L, Carbon Dioxide 38.6 H, Anion Gap 7, BUN 18, Creatinine 0.51 L, Estim Creat Clear Calc 64.27, Est GFR (MDRD) Non-Af 101, BUN/Creatinine Ratio 34.4 H, Glucose 179 H, Calcium 8.1 Micro: Microbiology 09/29/24 09:15 Sputum, Expectorated/Coughed Gram Stain - Final 09/29/24 09:15 Sputum, Expectorated/Coughed Respiratory Culture - Final Stenotrophomonas maltophilia Pseudomonas aeruginosa 09/29/24 06:05 Mucosa - Nasopharyngeal Respiratory Panel (PCR) - Final 09/29/24 02:30 Mucosa - Nose SARS-CoV-2, Influenza & RSV (PCR) - Final Rhythm Strip Rhythm Strip: Sinus Rhythm Rate: 87 Physical Exam Const alert and oriented x3 Constitutional Narrative: frail General Appearance: cooperative HEENT normocephalic, head/scalp atraumatic, moist oral mucous membranes and oropharynx normal Eyes PERRL and EOMs intact bilaterally Neck supple General: trachea midline Lymph Lymphatic: no lymphedema noted Resp Resp Narrative: mildly diminished breath sounds bibasally, mild wheezing. NO crackles. On 2 L of oxygen by nasal canula Cardio S1 normal heart sound, S2 normal heart sound and no murmurs Cardio Narrative: afib with RVR, HR in the 170s-180s GI normal to inspection, nondistended, normoactive bowel sounds, soft to palpation, non-tender and non-distended Extremity normal capillary refill and no clubbing, cyanosis or edema General Extremity: no tenderness to palpation of joints or extremities Skin General Skin Exam: no breakdown Neuro no focal motor deficits Neuro Narrative: alert, oriented x 3, communicative, moves all extremities spontaneously Motor Exam: general weakness Psych thought process normal and cooperative Appearance: appropriate Assessment & Plan Assessment/Plan (1) Tachycardia: (2) COPD with acute exacerbation: PLAN: Plan #Acute hypoxic and hypercapnic respiratory failure due to COPD exacerbation and pneumonia * sputum cultures growing Pseudomonas * has a history of non-small cell lung cancer. * Now on p.o. levofloxacin. However since she is unable to swallow the Levaquin. Will likely DC the oral antibiotics as she completed a 7-day course of IV Levaquin. * breathing treatment with bronchodilators. Titrate oxygen to maintain sats >90% * Sputum cultures grew stenotrophomonas and Pseudomonas both sensitive to Levaquin * on 3L of oxygen by nasal canula * Also on IV Solu-Medrol. Will switch to p.o. prednisone. * # A-fib with RVR * Patient went back into tachycardia today with heart rate going as high as the 180s. EKG showed A-fib with RVR * * 2D echo done showed severe concentric left ventricular hypertrophy with EF of 70% and stage I diastolic dysfunction as well as severely calcified aortic valve with severe aortic valve stenosis and mean peak gradient of 50 mmHg as well as trivial aortic valve regurgitation. * Cardiology on board. Management as per cardiology. * per cardiology, she will need to be worked up for TAVR on outpatient basis once she follows up with cardiology on discharge. * Patient on verapamil. Per cardiology and she has converted to normal sinus rhythm will monitor for now and continue the verapamil. If this recurs she is to be placed on amiodarone drip. * Heart rate has remained stable. * On therapeutic Lovenox. She converted to normal sinus rhythm today before she can be placed on amiodarone drip. Already on verapamil. Per cardiology to place on Multaq * switch to PO eliquis. * #Benign essential hypertension * on verapamil #Anxiety and depression: On Ativan nightly and buspirone #Restless leg syndrome: On pramipexole #GERD: on PPI DVT prophylaxis: On therapeutic Lovenox. Will switch to PO eliquis. Charges/Coding Visit Charges Inpatient E&M: 98781 [facility] Hosp L3
[2024-10-08] MEDS: Acetaminophen 325 MG Tablet 650 MG PO (13:37)
[2024-10-08] MEDS: LORazepam 1 MG Tablet PO (17:14)
[2024-10-08] MEDS: LORazepam 0.5 MG Tablet PO (21:01)
[2024-10-08] MEDS: Pramipexole Di-HCl 0.125 MG Tablet PO (21:04)
[2024-10-09] VITALS (8 sets, daily range): BP systolic 142–149; BP diastolic 72–93; PULSE 100–109; RESP 16–20; TEMP 36.1–36.9; O2SAT 90–98; BMI 26.1
[2024-10-09] MEDS: 0.9% Saline Lock 10 ML Syringe IV ×3 (05:08→15:33)
[2024-10-09] MEDS: Methylprednisolone Sod Succ 40 MG/ML VIAL IV ×2 (05:09→15:32)
[2024-10-09 06:04] LABS: Absolute Lymphocyte Count 0.67 X10^3/uL (0.83-4.51); Absolute Neutrophil Count 8.4 X10^3/uL (2.0-7.7); Basophil# 0.01 X10^3/uL; Basophil% 0.1 % (0-1); Hematocrit 41.6 % (37-47); Hemoglobin 13.5 g/dL (12.0-15.0); Lymphocyte # 0.67 X10^3/ul (0.83-4.51); Lymphocyte % 6.9 % (19-41); Mean Corp Hgb Conc 32.5 g/dL (32-36); Mean Corpuscular Hgb 27.9 pg (27.0-32.0); Monocyte# 0.51 X10^3/uL; Monocyte% 5.3 % (0-10); NRBC Flagged by Analyzer 0 % (0-5); Neutrophil # 8.43 X10^3/uL (2.7-7.7); Neutrophil % 86.9 % (47-70); Platelet Count 181 K/mm3 (150-450); RBC Distribution Width CV 13.1 % (11.6-14.6); RBC Distribution Width SD 41.1 fl (35.1-43.9); Red Blood Count 4.84 M/mm3 (4.2-5.4); White Blood Count 9.7 K/mm3 (4.4-11.0)
[2024-10-09 06:32] LABS: Anion Gap 5 (5-15); BUN 17 mg/dL (4-19); Calcium,Total 8.4 mg/dL (7.6-11.0); Carbon Dioxide 40.4 mmol/L (21.0-32.0); Chloride 93 mmol/L (98-108); Creatinine, Serum 0.44 mg/dL (0.70-1.20); EST Glomerular Filtration Rate 105 (>60); Estimated Creatinine Clearance 63.35 ml/min (50-250); Glucose 113 mg/dL (70-99); Potassium 4.9 mmol/L (3.3-5.1); Sodium Level 139 mmol/L (133-145)
[2024-10-09] MEDS: Sertraline 100 MG Tablet PO (08:57)
[2024-10-09] MEDS: LORazepam 1 MG Tablet PO ×2 (08:57→15:32)
[2024-10-09] MEDS: busPIRone 5 MG Tablet 10 MG PO (08:58)
[2024-10-09] MEDS: HYDROcodone Bitartrate/Apap 5/325 Tablet PO (08:58)
[2024-10-09] MEDS: Montelukast 10 MG Tablet PO (08:58)
[2024-10-09] MEDS: Pantoprazole Sodium 20 MG Tablet PO (08:58)
[2024-10-09] MEDS: Verapamil SR 180 MG CAPSULE PO (08:58)
[2024-10-09] MEDS: Enoxaparin 80 MG/0.8 ML Syringe 70 MG SC (09:00)
[2024-10-09] MEDS: cycloBENZAPRine HCl 10 MG Tablet PO (10:43)
[2024-10-09] MEDS: Ipratropium 0.5 MG/2.5 ML SOLUTION INHALATION ×2 (11:18→15:46)
[2024-10-09] MEDS: levoFLOXacin IV 750 MG/150 ML BAG 100 MG IV (11:24)
[2024-10-09] MEDS: 0.9% Normal Saline (250mL Bag) 250 ML 15 ML IV (11:24)
--- NOTE | 2024-10-09 11:59 | CASEMGMT ---
RN CM received call from [facility] and they are able to accept patient when discharge. CM will continue to follow this patient and plan for a safe discharge.
--- NOTE | 2024-10-09 15:42 | DCINST_ITS ---
Discharge Instructions DC O2, CPAP, BIPAP needs Home O2 Discharge instructions: Yes Type of respiratory needs?: Oxygen Oxygen frequency: Continuous Continuous oxygen liters per minute: 2 Follow Up Care Test Results: Test results from this visit will be discussed in further detail at your follow- up appointment, if applicable. Discharge Plan Admission Admit Date/Time: 09/29/24 11:36 Primary Reason for Your Visit: Acute hypoxic hypercarbic respiratory failure, COPD exacerbation, pneumonia Attending Provider: Alessandro Palma Primary Care Provider: Arnulfo Fall Consulting Providers: Dionne Porter; Jan Bolanos; Junito Madrid; Lynne Schafer Discharge Orders/Prescriptions Prescriptions: New nicotine 14 mg/24 hr Patch 24 Hour 14 mg transdermal DAILY Qty: 28 0RF verapamil 180 mg Capsule,Ext Rel. 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 omeprazole 20 MG capsule 20 mg PO DAILY Patient Comments: ACID REFLUX MEDICATION montelukast 10 MG tablet 10 mg PO DAILY Patient Comments: ANTI-HISTAMINE albuterol sulfate [Ventolin HFA] 1 INHALER inhaler 1 - 2 puff inhalation Q4H PRN PRN (Reason: Bronchodialation) Patient Comments: COPD/SHORTNESS OF BREATH fluticasone propionate 1 SPRAY spray,suspension 1 spray intranasal DAILY Patient Comments: NASAL SPRAY TO HELP CONGESTION tiotropium bromide [Spiriva with HandiHaler] 1 PUFF inhaler 1 puff inhalation DAILY Patient Comments: INHALER FOR COPD sertraline 100 MG tablet 100 mg PO BID Patient Comments: mood enhancement Oxygen, Home [Home Oxygen] 2.5 lpm NASAL PRN PRN (Reason: Dyspnea) Patient Comments: oxygen fluticasone propion-salmeterol [Advair Diskus] 1 PUFF inhaler 1 puff inhalation BID Qty: 1 0RF Patient Comments: nasal congestion Ropinirole Hcl 0.25 MG tablet 0.25 mg PO QHS Patient Comments: restless legs prednisone 10 MG tablet 15 mg PO QODAY PRN (Reason: FLARE UPS) Patient Comments: steroid for inflammation ipratropium-albuterol 3 ML solution for nebulization 3 ml inhalation Q4HWA.RT Qty: 30 0RF lorazepam 0.5 MG tablet 0.5 mg PO QHS Qty: 7 0RF nicotine (polacrilex) [Nicorette] 2 mg gum 2 mg buccal Q2H Qty: 20 0RF cholecalciferol (vitamin D3) [Vitamin D3] 50 mcg (2,000 unit) capsule 50 mcg PO DAILY ipratropium-albuterol 0.5 mg-3 mg(2.5 mg base)/3 mL solution for nebulization 3 ml inhalation Q6H PRN (Reason: shortness of breath or wheezing) Qty: 180 0RF buspirone 10 mg tablet 10 mg PO BID hydrocodone-acetaminophen 5-325 mg tablet 1 tab PO BID PRN PRN (Reason: pain) prednisone 20 mg tablet 40 mg PO DAILY 5 Days Qty: 10 0RF Discontinued verapamil 240 MG tablet 360 mg PO DAILY Patient Comments: HEART MEDICATION Referrals / Follow Up: Arnulfo Fall MD [Primary Care Provider] - Junito Madrid MD [Med Staff - Active Staff] - Within 1 Month (Evaluation for moderate to severe aortic stenosis) Lindsay Whitehead PA [Med Staff - Adv Practice Prof] - Within 1 Week Andriy Guzmán DO [Med Staff - Active Staff] - Within 1 Month Disposition Disposition (needs filled in before D/C Order can be placed): Home Health Service
--- NOTE | 2024-10-09 15:58 | DS.PCM_ITS ---
Providers Date of Admission: 09/29/24 Date of Discharge: 10/09/24 Primary Care Physician: Dr. Arnulfo Fall MD Consultations 10/02/24 09:21 Consult: Cardiology Routine Consulting Provider: Junito Madrid Reason for Consult: New afib RVR EMERGENT Consult: No Notified: Yes Date Notified: 10/02/24 Time Notified: : Method of Notification: Text Reason For Visit: COPD EXACERBATION Diagnosis Discharge Diagnosis (1) Aortic valve stenosis: Status: Acute Code(s): I35.0 - Nonrheumatic aortic (valve) stenosis Qualifiers: Cardiac valve disease etiology: nonrheumatic Qualified Code(s): I35.0 - Nonrheumatic aortic (valve) stenosis (2) Afib: Status: Acute Code(s): I48.91 - Unspecified atrial fibrillation Plan This is a 69-year-old female admitted for acute hypoxic and hypercarbic respiratory failure. She was started on BiPAP. Sputum cultures tested positive for Pseudomonas and on Levaquin. Patient also had reactive RPR. #Acute hypoxic and hypercapnic respiratory failure due to COPD exacerbation and pneumonia * sputum cultures growing Pseudomonas * has a history of non-small cell lung cancer. Had right lung surgery * Patient had 2 dosages of Levaquin 1 oral and then 1 IV. Discharged on 6 more doses of Levaquin 500 milligram daily. * breathing treatment with bronchodilators. Titrate oxygen to maintain sats >90% * Sputum cultures grew stenotrophomonas and Pseudomonas both sensitive to Levaquin * Currently on 2 L of oxygen. Home oxygen qualification test ordered. Follow- up in pulmonary clinic. Discharged on burst therapy of prednisone 40 mg daily for 5 days. Follow-up pulmonary clinic. # A-fib with RVR * Patient went back into tachycardia today with heart rate going as high as the 180s. EKG showed A-fib with RVR * 2D echo done showed severe concentric left ventricular hypertrophy with EF of 70% and stage I diastolic dysfunction as well as severely calcified aortic valve with severe aortic valve stenosis and mean peak gradient of 50 mmHg as well as trivial aortic valve regurgitation. * Cardiology on board. Management as per cardiology. * per cardiology, she will need to be worked up for TAVR on outpatient basis once she follows up with cardiology on discharge. On verapamil?SR 180 mg twice daily. * Discussed with the literacy tutor Dr. Hopkins today. Discharge on verapamil and Carvedilol 6.25 mg twice daily. * On therapeutic Lovenox. She converted to normal sinus rhythm. Discharged on dronedarone and Eliquis 5 mg twice daily. Follow-up in cardiology office with Dr. Leroy in 1 week. Needs referral to TAVR. * #Benign essential hypertension * on verapamil * #Anxiety and depression: On Ativan nightly and buspirone #Restless leg syndrome: On pramipexole #GERD: on PPI DVT prophylaxis: On therapeutic Lovenox. Change to PO eliquis. Discharge medication reconciliation done. Discharge follow-up instructions completed. Discharge process discussed with the patient and all questions were answered to patient's satisfaction. Follow with PCP in 1 to 2 weeks Total time spent, exact 35 minutes on discharge meds reconciliation, examination, coordination of care with nurses and ancillary staff, review of imaging and blood test and discussion with the patient on follow-up instructions. Medications at Discharge Home Medications albuterol sulfate 90 mcg/actuation aerosol inhaler (Ventolin HFA) 1 - 2 puff inhalation Q4H PRN PRN Bronchodialation 04/18/13 cyclobenzaprine 10 mg tablet 10 mg PO Q12H pain 04/18/13 fluticasone propionate 50 mcg/actuation nasal spray,suspension 1 spray intranasal DAILY nasal congestion 04/18/13 montelukast 10 mg tablet 10 mg PO DAILY allergies 04/18/13 omeprazole 20 mg capsule,delayed release 20 mg PO DAILY heart burn 04/18/13 tiotropium bromide 18 mcg capsule with inhalation device (Spiriva with HandiHaler) 1 puff inhalation DAILY wheezing 04/18/13 Oxygen, Home [Home Oxygen] 2.5 lpm PRN PRN Dyspnea 10/22/13 sertraline 100 mg tablet 100 mg PO BID mood 10/22/13 fluticasone 500 mcg-salmeterol 50 mcg/dose blistr powdr for inhalation (Advair Diskus) 1 puff inhalation BID shortness of breath ##1 10/26/13 Ropinirole Hcl 0.25 mg PO QHS restless legs 09/23/14 prednisone 10 mg tablet 15 mg PO QODAY PRN FLARE UPS 04/03/15 ipratropium 0.5 mg-albuterol 3 mg (2.5 mg base)/3 mL nebulization soln 3 ml inhalation Q4HWA.RT wheezing ##30 05/13/16 lorazepam 0.5 mg tablet 0.5 mg PO QHS anxiety #7 tabs 05/05/20 nicotine (polacrilex) 2 mg gum (Nicorette) 2 mg buccal Q2H to stop smoking #20 ea 07/22/23 cholecalciferol (vitamin D3) 50 mcg (2,000 unit) capsule (Vitamin D3) 50 mcg PO DAILY vitamin 10/18/23 ipratropium 0.5 mg-albuterol 3 mg (2.5 mg base)/3 mL nebulization soln 3 ml inhalation Q6H PRN shortness of breath or wheezing #180 mL 10/18/23 buspirone 10 mg tablet 10 mg PO BID anxiety 10/02/24 hydrocodone-acetaminophen 5-325mg 5mg-325mg 1 tab PO BID PRN PRN pain 10/03/24 apixaban 5 mg tablet (Eliquis) 5 mg PO BID 1 month #60 tabs 10/09/24 carvedilol 6.25 mg tablet 6.25 mg PO BID 1 month #60 tabs 10/09/24 dronedarone 400 mg tablet (Multaq) 400 mg PO BID 30 days #60 tabs 10/09/24 levofloxacin 500 mg tablet 500 mg PO DAILY 6 days #6 tabs 10/09/24 nicotine 14 mg/24 hr daily transdermal patch 14 mg transdermal DAILY #28 ea 10/09/24 prednisone 20 mg tablet 40 mg (2 x 20 mg) PO DAILY 5 days #10 tabs 10/09/24 verapamil 180 mg 24 hr capsule,extended release 180 mg PO BID 30 days #60 caps 10/09/24 Physical Exam Narrative Seen and examined Patient heart rate is controlled in the low 100s to 90s. Regular mild sinus tachycardia. Shortness of breath is also improved. Currently on 2 L of oxygen. History of lung cancer diagnosed in 2003 and had right lung surgery. Physical exam General: Alert, Oriented x3, Cooperative. BMI 26.1. HEENT: Atraumatic, PERRLA, EOMI, Normocephalic. Oral: No Gingival or Mucosal Lesions/ Ulcerations Neck: Supple, No JVD, Negative Carotid Bruits Chest wall/Lungs: Air entry diminished in both lungs. Cardiovascular: Regular rate and rhythm, Normal S1,S2, systolic murmur with radiation to carotids. Abdomen: Bowel Sounds Present, Soft, Non Tender, Non-Distended : No dysuria. No renal angle tenderness. No suprapubic tenderness. Extremities: No edema, Capillary Refill Less than 3 Seconds Skin: No rashes, No breakdown Musculoskeletal: No Tenderness to Palpation of Joints or Extremities Neurological: Cranial nerves II-XII grossly intact, DTR 2+/4. No acute focal neurological deficit. Psych/Mental Status: Flat affect. Weight / BMI Weight Weight: 152 lb 5.431 oz Body Mass Index (BMI) 26.1 ABG / Lab / Microbiology Data 10/09/24 05:30 10/09/24 05:30 Laboratory: Laboratory Results - last 24 hr 10/09/24 05:30: WBC 9.7, RBC 4.84, Hgb 13.5, Hct 41.6, MCV 86.0, MCH 27.9, MCHC 32.5, RDW Std Deviation 41.1, RDW Coeff of Augustin 13.1, Plt Count 181, MPV 10.0, Immature Gran % (Auto) 0.800, Neut % (Auto) 86.9 H, Lymph % (Auto) 6.9 L, Kidder % (Auto) 5.3, Eos % (Auto) 0.0, Baso % (Auto) 0.1, Absolute Neuts (auto) 8.4 H, A bsolute Lymphs (auto) 0.67 L, Nucleated RBC % 0, Sodium 139, Potassium 4.9, C hloride 93 L, Carbon Dioxide 40.4 H, Anion Gap 5, BUN 17, Creatinine 0.44 L, Estim Creat Clear Calc 63.35, Est GFR (MDRD) Non-Af 105, BUN/Creatinine Ratio 38.0 H, Glucose 113 H, Calcium 8.4 Microbiology: Microbiology 09/29/24 09:15 Sputum, Expectorated/Coughed Gram Stain - Final 09/29/24 09:15 Sputum, Expectorated/Coughed Respiratory Culture - Final Stenotrophomonas maltophilia Pseudomonas aeruginosa 09/29/24 06:05 Mucosa - Nasopharyngeal Respiratory Panel (PCR) - Final 09/29/24 02:30 Mucosa - Nose SARS-CoV-2, Influenza & RSV (PCR) - Final D/C Instructions DC O2, CPAP, BIPAP Needs Home O2 Discharge instructions: Yes Type of respiratory needs?: Oxygen Oxygen frequency: Continuous Continuous oxygen liters per minute: 2 DC home with Oxygen: Yes Home O2 MD Review: I have reviewed the oxygen testing, and the patient qualifies for home oxygen equipment and portability. The patient is mobile in the home and the community. Meaningful Use Info Meaningful Use Meaningful Use Diagnoses (Choose all that apply): None applicable Ischemic Stroke Statin Dosing Therapy Reference: STATIN DOSE THERAPY REFERENCE: * Patients > 75 years receive moderate or high dose statin therapy. * Patients 75 years or YOUNGER should receive HIGH intensity statin dose unless contraindicated. You will be required to document reason for non-treatment if statin daily dose does not meet guidelines. HIGH DOSE STATIN THERAPY DAILY Atorvastatin > than or = to 40 mg Rosuvastatin > than or = to 20 mg Amlodipine + Atorvastatin > than or = to 2.5/40 mg Ezetimibe + Simvastatin 10/80 mg Simvastatin 80mg Discharge Plan Admission Admit Date/Time: 09/29/24 11:36 Primary Reason for Your Visit: Acute hypoxic hypercarbic respiratory failure, COPD exacerbation, pneumonia Attending Provider: Alessandro Palma Primary Care Provider: Arnulfo Fall Consulting Providers: Dionne Porter; Jan Bolanos; Junito Madrid; Lynne Schafer Discharge Orders/Prescriptions Prescriptions: New nicotine 14 mg/24 hr Patch 24 Hour 14 mg transdermal DAILY Qty: 28 0RF verapamil 180 mg Capsule,Ext Rel. 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 omeprazole 20 MG capsule 20 mg PO DAILY Patient Comments: ACID REFLUX MEDICATION montelukast 10 MG tablet 10 mg PO DAILY Patient Comments: ANTI-HISTAMINE albuterol sulfate [Ventolin HFA] 1 INHALER inhaler 1 - 2 puff inhalation Q4H PRN PRN (Reason: Bronchodialation) Patient Comments: COPD/SHORTNESS OF BREATH fluticasone propionate 1 SPRAY spray,suspension 1 spray intranasal DAILY Patient Comments: NASAL SPRAY TO HELP CONGESTION tiotropium bromide [Spiriva with HandiHaler] 1 PUFF inhaler 1 puff inhalation DAILY Patient Comments: INHALER FOR COPD sertraline 100 MG tablet 100 mg PO BID Patient Comments: mood enhancement Oxygen, Home [Home Oxygen] 2.5 lpm NASAL PRN PRN (Reason: Dyspnea) Patient Comments: oxygen fluticasone propion-salmeterol [Advair Diskus] 1 PUFF inhaler 1 puff inhalation BID Qty: 1 0RF Patient Comments: nasal congestion Ropinirole Hcl 0.25 MG tablet 0.25 mg PO QHS Patient Comments: restless legs prednisone 10 MG tablet 15 mg PO QODAY PRN (Reason: FLARE UPS) Patient Comments: steroid for inflammation ipratropium-albuterol 3 ML solution for nebulization 3 ml inhalation Q4HWA.RT Qty: 30 0RF lorazepam 0.5 MG tablet 0.5 mg PO QHS Qty: 7 0RF nicotine (polacrilex) [Nicorette] 2 mg gum 2 mg buccal Q2H Qty: 20 0RF cholecalciferol (vitamin D3) [Vitamin D3] 50 mcg (2,000 unit) capsule 50 mcg PO DAILY ipratropium-albuterol 0.5 mg-3 mg(2.5 mg base)/3 mL solution for nebulization 3 ml inhalation Q6H PRN (Reason: shortness of breath or wheezing) Qty: 180 0RF buspirone 10 mg tablet 10 mg PO BID hydrocodone-acetaminophen 5-325 mg tablet 1 tab PO BID PRN PRN (Reason: pain) prednisone 20 mg tablet 40 mg PO DAILY 5 Days Qty: 10 0RF Discontinued verapamil 240 MG tablet 360 mg PO DAILY Patient Comments: HEART MEDICATION Referrals / Follow Up: Andriy Guzmán DO [Med Staff - Active Staff] - Within 1 Month Arnulfo Fall MD [Primary Care Provider] - Junito Madrid MD [Med Staff - Active Staff] - Within 1 Month (Evaluation for moderate to severe aortic stenosis) Lindsay Whitehead PA [Med Staff - Adv Practice Prof] - Within 1 Week Disposition Disposition (needs filled in before D/C Order can be placed): Home Health Service Charges/Coding Visit Charges Inpatient E&M: 09685 Disch Hosp >30min
--- NOTE | 2024-10-09 16:04 | CASEMGMT ---
Patient has order for discharge. RN CM in to discuss needs at discharge. RN CM updated regarding [facility] start of care for tomorrow. Patient is requesting walker, script received and sent to [facility] [place] with arrangements for walker to be delivered to patient's room. Patient denied further questions or concerns at discharge. RN CM updated discharge plan.
--- NOTE | 2024-12-12 10:17 | PCM.DC.SUM ---
Providers Date of Admission: 09/29/24 Primary Care Physician: Dr. Arnulfo Fall MD Consultations 10/02/24 09:21 Consult: Cardiology Routine Consulting Provider: Junito Madrid Reason for Consult: New afib RVR EMERGENT Consult: No MD Notified: Yes Date Notified: 10/02/24 Time Notified: 09:25 Method of Notification: Text Reason For Visit: COPD EXACERBATION Diagnosis Discharge Diagnosis (1) Aortic valve stenosis: Status: Acute Code(s): I35.0 - Nonrheumatic aortic (valve) stenosis Qualifiers: Cardiac valve disease etiology: nonrheumatic Qualified Code(s): I35.0 - Nonrheumatic aortic (valve) stenosis (2) Afib: Status: Chronic Code(s): I48.91 - Unspecified atrial fibrillation Medications at Discharge Home Medications albuterol sulfate 90 mcg/actuation aerosol inhaler (Ventolin HFA) 1 - 2 puff inhalation Q4H PRN PRN Bronchodialation 04/18/13 cyclobenzaprine 10 mg tablet 10 mg PO Q12H pain 04/18/13 fluticasone propionate 50 mcg/actuation nasal spray,suspension 1 spray intranasal DAILY nasal congestion 04/18/13 montelukast 10 mg tablet 10 mg PO DAILY allergies 04/18/13 omeprazole 20 mg capsule,delayed release 20 mg PO DAILY heart burn 04/18/13 tiotropium bromide 18 mcg capsule with inhalation device (Spiriva with HandiHaler) 1 puff inhalation DAILY wheezing 04/18/13 Oxygen, Home [Home Oxygen] 2.5 lpm PRN PRN Dyspnea 10/22/13 sertraline 100 mg tablet 100 mg PO BID mood 10/22/13 fluticasone 500 mcg-salmeterol 50 mcg/dose blistr powdr for inhalation (Advair Diskus) 1 puff inhalation BID shortness of breath ##1 10/26/13 Ropinirole Hcl 0.25 mg PO QHS restless legs 09/23/14 prednisone 10 mg tablet 15 mg PO QODAY PRN FLARE UPS 04/03/15 ipratropium 0.5 mg-albuterol 3 mg (2.5 mg base)/3 mL nebulization soln 3 ml inhalation Q4HWA.RT wheezing ##30 05/13/16 lorazepam 0.5 mg tablet 0.5 mg PO QHS anxiety #7 tabs 05/05/20 nicotine (polacrilex) 2 mg gum (Nicorette) 2 mg buccal Q2H to stop smoking #20 ea 07/22/23 cholecalciferol (vitamin D3) 50 mcg (2,000 unit) capsule (Vitamin D3) 50 mcg PO DAILY vitamin 10/18/23 ipratropium 0.5 mg-albuterol 3 mg (2.5 mg base)/3 mL nebulization soln 3 ml inhalation Q6H PRN shortness of breath or wheezing #180 mL 10/18/23 buspirone 10 mg tablet 10 mg PO BID anxiety 10/02/24 hydrocodone-acetaminophen 5-325mg 5mg-325mg 1 tab PO BID PRN PRN pain 10/03/24 nicotine 14 mg/24 hr daily transdermal patch 14 mg transdermal DAILY #28 ea 10/09/24 cefdinir 300 mg capsule 300 mg PO BID 6 days #12 caps 10/10/24 apixaban 5 mg tablet (Eliquis) 5 mg PO BID #60 tabs 11/03/24 carvedilol 6.25 mg tablet 6.25 mg PO BID #60 tabs 11/03/24 dronedarone 400 mg tablet (Multaq) 400 mg PO BID #180 tabs 11/03/24 verapamil 180 mg 24 hr capsule,extended release 180 mg PO BID #180 caps 11/03/24 Weight / BMI Weight Weight: 69.1 kg Body Mass Index (BMI) 26.1 ABG / Lab / Microbiology Data 10/09/24 05:30 10/09/24 05:30 Microbiology: Microbiology 09/29/24 09:15 Sputum, Expectorated/Coughed Gram Stain - Final 09/29/24 09:15 Sputum, Expectorated/Coughed Respiratory Culture - Final Stenotrophomonas maltophilia Pseudomonas aeruginosa 09/29/24 06:05 Mucosa - Nasopharyngeal Respiratory Panel (PCR) - Final 09/29/24 02:30 Mucosa - Nose SARS-CoV-2, Influenza & RSV (PCR) - Final Discharge Plan Admission Admit Date/Time: 09/29/24 11:36 Primary Reason for Your Visit: Acute hypoxic hypercarbic respiratory failure, COPD exacerbation, pneumonia Attending Provider: Alessandro Palma Primary Care Provider: Arnulfo Fall Consulting Providers: Dionne Porter; Jan Bolanos; Junito Madrid; Lynne Schafer Discharge Orders/Prescriptions Prescriptions: New nicotine 14 mg/24 hr Patch 24 Hour 14 mg transdermal DAILY Qty: 28 0RF cefdinir 300 mg capsule 300 mg PO BID 6 Days Qty: 12 0RF Continued cyclobenzaprine 10 MG tablet 10 mg PO Q12H 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 omeprazole 20 MG capsule 20 mg PO DAILY Patient Comments: ACID REFLUX MEDICATION montelukast 10 MG tablet 10 mg PO DAILY Patient Comments: ANTI-HISTAMINE albuterol sulfate [Ventolin HFA] 1 INHALER inhaler 1 - 2 puff inhalation Q4H PRN PRN (Reason: Bronchodialation) Patient Comments: COPD/SHORTNESS OF BREATH fluticasone propionate 1 SPRAY spray,suspension 1 spray intranasal DAILY Patient Comments: NASAL SPRAY TO HELP CONGESTION tiotropium bromide [Spiriva with HandiHaler] 1 PUFF inhaler 1 puff inhalation DAILY Patient Comments: INHALER FOR COPD sertraline 100 MG tablet 100 mg PO BID Patient Comments: mood enhancement Oxygen, Home [Home Oxygen] 2.5 lpm NASAL PRN PRN (Reason: Dyspnea) Patient Comments: oxygen fluticasone propion-salmeterol [Advair Diskus] 1 PUFF inhaler 1 puff inhalation BID Qty: 1 0RF Patient Comments: nasal congestion Ropinirole Hcl 0.25 MG tablet 0.25 mg PO QHS Patient Comments: restless legs prednisone 10 MG tablet 15 mg PO QODAY PRN (Reason: FLARE UPS) Patient Comments: steroid for inflammation ipratropium-albuterol 3 ML solution for nebulization 3 ml inhalation Q4HWA.RT Qty: 30 0RF lorazepam 0.5 MG tablet 0.5 mg PO QHS Qty: 7 0RF nicotine (polacrilex) [Nicorette] 2 mg gum 2 mg buccal Q2H Qty: 20 0RF cholecalciferol (vitamin D3) [Vitamin D3] 50 mcg (2,000 unit) capsule 50 mcg PO DAILY ipratropium-albuterol 0.5 mg-3 mg(2.5 mg base)/3 mL solution for nebulization 3 ml inhalation Q6H PRN (Reason: shortness of breath or wheezing) Qty: 180 0RF buspirone 10 mg tablet 10 mg PO BID hydrocodone-acetaminophen 5-325 mg tablet 1 tab PO BID PRN PRN (Reason: pain) Discontinued verapamil 240 MG tablet 360 mg PO DAILY Patient Comments: HEART MEDICATION prednisone 20 mg tablet 40 mg PO DAILY 5 Days Qty: 10 0RF No Action carvedilol 6.25 mg tablet 6.25 mg PO BID Qty: 60 11RF Rx Instructions: must administer with a meal/food verapamil 180 mg capsule,ext rel. pellets 24 hr 180 mg PO BID Qty: 180 2RF Multaq 400 mg tablet 400 mg PO BID Qty: 180 3RF Eliquis 5 mg tablet 5 mg PO BID Qty: 60 11RF Rx Instructions: Discontinue if platelet count drops less than 50,000 or hemoglobin less than 8 g% Referrals / Follow Up: Andriy Guzmán DO [Med Staff - Active Staff] - Within 1 Month (Office is closed at time of discharge. Please call to schedule appointment.) Arnulfo Fall MD [Primary Care Provider] - 10/17/24 2:20 pm Junito Madrid MD [Med Staff - Active Staff] - Within 1 Month (Evaluation for moderate to severe aortic stenosis) Lindsay Whitehead PA [Med Staff - Adv Practice Prof] - 10/31/24 9:30 am Disposition Disposition (needs filled in before D/C Order can be placed): Home Health Service
== END 2024-10-09 17:37 | disposition home health service (06) | DRG 190 ==
LOC: ED 04:15 → PCU 04:53
PROVIDERS: Family Medicine; Internal Medicine; Student in an Organized Health Care Education/Training Program; Admitting Provider Family Medicine; Emergency Provider Emergency Medicine; PCP Family Medicine; Visit Provider Internal Medicine
DX: J44.0 Chronic obstructive pulmonary disease with (acute) lower respiratory infection (principal); J15.1 Pneumonia due to Pseudomonas; J96.22 Acute and chronic respiratory failure with hypercapnia; J96.21 Acute and chronic respiratory failure with hypoxia; I47.19 Other supraventricular tachycardia; G25.81 Restless legs syndrome; I48.0 Paroxysmal atrial fibrillation; J44.1 Chronic obstructive pulmonary disease with (acute) exacerbation; I10 Essential (primary) hypertension; F32.A Depression, unspecified; I35.0 Nonrheumatic aortic (valve) stenosis; F10.11 Alcohol abuse, in remission; F41.9 Anxiety disorder, unspecified; K21.9 Gastro-esophageal reflux disease without esophagitis; E87.70 Fluid overload, unspecified; Z11.52 Encounter for screening for COVID-19; Z99.81 Dependence on supplemental oxygen; Z79.51 Long term (current) use of inhaled steroids; Z79.899 Other long term (current) drug therapy; Z87.891 Personal history of nicotine dependence; Z85.118 Personal history of other malignant neoplasm of bronchus and lung; Z90.2 Acquired absence of lung [part of]
CPT/HCPCS: 36415; 36600; 71046; 80048; 80053; 82803; 83735; 83880; 84145; 84439; 84443; 84484; 85025; 87070; 87077; 87184; 87186; 87205; 87631; 87633; 93005; 93306; 94002; 94003; 94640; 94668; 94762; 97110; 97162; 97166; 97530; 97535; 99285; 99406; A4216

== ENCOUNTER 2024-12-26 13:53 | Inpatient (IN) | payer MEDICARE, MEDICAID, SELFPAY ==
[2024-12-26] VITALS (9 sets, daily range): BP systolic 129–144; BP diastolic 66–81; PULSE 87–109; RESP 18–23; TEMP 36.8–37.1; O2SAT 96–99; BMI 28.0; BMI 26.9
--- NOTE | 2024-12-26 15:24 | EKG12_ITS ---
Test Reason : ANXIETY Blood Pressure : */* mmHG Vent. Rate : 99 BPM Atrial Rate : 99 BPM P-R Int : 166 ms QRS Dur : 76 ms QT Int : 356 ms P-R-T Axes : 80 44 77 degrees QTcB Int : 456 ms Normal sinus rhythm Right atrial enlargement Borderline ECG Confirmed by Junito Madrid ([id number]), publication editor LEORA RESTREPO ([id number]) on 12/27/2024 8:19:45 AM Referred By: ER/AK Confirmed By: Junito Madrid
--- NOTE | 2024-12-26 15:28 | RAD_ITS ---
PROCEDURE: CHEST 1 VIEW (PORTABLE) 12/26/2024 REASON FOR EXAM: SOB TECHNIQUE: Frontal view of the chest. COMPARISON: September 29, 2024 FINDINGS: Hardware: None Heart: Heart is normal size. Aorta is atherosclerotic. Lungs: Surgical clips are seen overlying the upper mediastinum and right paratracheal region. Surgical suture line is seen overlying the right upper thorax with some local volume loss and linear scarring. No new consolidation or mass. Possibly emphysema. No pneumothorax. Bones: Degenerative changes are identified within the thoracic spine. RAD/Chest 1 View (Portable) IMPRESSION: Posttreatment changes. No acute abnormality. No significant change Reading [id number]
[2024-12-26 16:31] LABS: Hematocrit 29.0 % (37-47); Hemoglobin 9.2 g/dL (12.0-15.0); Immature Granulocytes Count 0.080 X10^3/uL (0.0-0.0); Mean Corp Hgb Conc 31.7 g/dL (32-36); Mean Corpuscular Volume 84.5 fL (81-99); Mean Platelet Vol. 9.3 fl (6.2-12.0); NRBC Flagged by Analyzer 0 % (0-5); Platelet Count 219 K/mm3 (150-450); RBC Distribution Width CV 14.0 % (11.6-14.6); RBC Distribution Width SD 43.0 fl (35.1-43.9); Red Blood Count 3.43 M/mm3 (4.2-5.4); White Blood Count 9.6 K/mm3 (4.4-11.0)
[2024-12-26 17:03] LABS: Anion Gap 8 (5-15); BUN 16 mg/dL (4-19); BUN/Creat Ratio 25.1 RATIO (10-20); Calcium,Total 8.9 mg/dL (7.6-11.0); Carbon Dioxide 41.6 mmol/L (21.0-32.0); Chloride 88 mmol/L (98-108); Estimated Creatinine Clearance 65.40 ml/min (50-250); Glucose 112 mg/dL (70-99); Potassium 4.0 mmol/L (3.3-5.1)
[2024-12-26] MEDS: Albuterol 2.5 MG/3 ML VIAL.NEB. INHALATION ×3 (17:24→19:58)
[2024-12-26 17:27] LABS: Troponin T High Sensitivity 25 ng/L (<=14)
--- NOTE | 2024-12-26 18:10 | ED.VIS.DYS ---
HPI History of Present Illness Chief Complaint: Shortness of Breath Informant: patient Narrative Narrative: 69-year-old female 3 to 4 days of productive cough with small amount of yellow sputum no blood, increased dyspnea and chest tightness that wraps around to her back, and upon coming here she states just leaving the house makes her have a panic attack which has happened every time she leaves in the past, and that is simply making the dyspnea and chest/upper back tightness worse. She does not have any pleuritic symptoms. No new leg edema. She is supposed to have a heart cath at [facility] within the next several weeks because of a leaky valve, her leg swelling is stable. She has been anticoagulated on apixaban because of A-fib. [facility] Medical History Afib Aortic valve stenosis RLS (restless legs syndrome) History of ETOH abuse Chronic hypoxic respiratory failure, on home oxygen therapy COPD (chronic obstructive pulmonary disease) Anxiety Depression Smoker Asthma Hypertension Migraines Home Medications ?Medication ?Instructions ?Recorded ?Last Taken ?Type albuterol sulfate 90 mcg/actuation 1 - 2 puff inhalation Q4H PRN PRN 04/18/13 09/23/14 History aerosol inhaler (Ventolin HFA) Bronchodialation cyclobenzaprine 10 mg tablet 10 mg PO Q12H pain 04/18/13 09/23/14 History 10 MG fluticasone propionate 50 1 spray intranasal DAILY nasal 04/18/13 09/23/14 History mcg/actuation nasal congestion spray,suspension montelukast 10 mg tablet 10 mg PO DAILY allergies 04/18/13 09/23/14 History 10 MG omeprazole 20 mg capsule,delayed 20 mg PO DAILY heart burn 04/18/13 09/23/14 History release 20 MG tiotropium bromide 18 mcg capsule 1 puff inhalation DAILY wheezing 04/18/13 09/23/14 History with inhalation device (Spiriva with HandiHaler) Oxygen, Home [Home Oxygen] 2.5 lpm PRN PRN Dyspnea 10/22/13 09/23/14 History sertraline 100 mg tablet 100 mg PO BID mood 10/22/13 09/23/14 History fluticasone 500 mcg-salmeterol 50 1 puff inhalation BID shortness of 10/26/13 09/23/14 Rx mcg/dose blistr powdr for breath ##1 inhalation (Advair Diskus) Ropinirole Hcl 0.25 mg PO QHS restless legs 09/23/14 Unknown History prednisone 10 mg tablet 15 mg PO QODAY PRN FLARE UPS 04/03/15 Unknown History ipratropium 0.5 mg-albuterol 3 mg 3 ml inhalation Q4HWA.RT wheezing 05/13/16 Unknown Rx (2.5 mg base)/3 mL nebulization ##30 soln lorazepam 0.5 mg tablet 0.5 mg PO QHS anxiety #7 tabs 05/05/20 Unknown Rx nicotine (polacrilex) 2 mg gum 2 mg buccal Q2H to stop smoking 07/22/23 Unknown Rx (Nicorette) #20 ea cholecalciferol (vitamin D3) 50 50 mcg PO DAILY vitamin 10/18/23 Unknown History mcg (2,000 unit) capsule (Vitamin D3) ipratropium 0.5 mg-albuterol 3 mg 3 ml inhalation Q6H PRN shortness 10/18/23 Unknown Rx (2.5 mg base)/3 mL nebulization of breath or wheezing #180 mL soln buspirone 10 mg tablet 10 mg PO BID anxiety 10/02/24 Unknown History hydrocodone-acetaminophen 5-325mg 1 tab PO BID PRN PRN pain 10/03/24 Unknown History 5mg-325mg nicotine 14 mg/24 hr daily 14 mg transdermal DAILY #28 ea 10/09/24 Unknown Rx transdermal patch cefdinir 300 mg capsule 300 mg PO BID 6 days #12 caps 10/10/24 Unknown Rx apixaban 5 mg tablet (Eliquis) 5 mg PO BID #60 tabs 11/03/24 Unknown Rx carvedilol 6.25 mg tablet 6.25 mg PO BID #60 tabs 11/03/24 Unknown Rx dronedarone 400 mg tablet (Multaq) 400 mg PO BID #180 tabs 11/03/24 Unknown Rx verapamil 180 mg 24 hr 180 mg PO BID #180 caps 11/03/24 Unknown Rx capsule,extended release Allergy/AdvReac Type Severity Reaction Status Date / Time No Known Allergies Allergy Verified 12/26/24 13:56 Family History Mother Hypertension Throat cancer Father Hypertension Stomach cancer Surgical History H/O exploratory laparotomy History of lung surgery History of cholecystectomy Social History household members: significant other and none housing: apartment Smoking Status: Former smoker alcohol intake: former substance use type: does not use ROS ROS ED Constitutional Constitutional ED: Denies chills or fever(s) Eyes Eyes: Denies change in vision or diplopia ENT ENT ED: Reports nasal congestion; Denies rhinorrhea or sore throat Cardiovascular Cardiovascular: Reports as per HPI, chest pain and leg edema; Denies orthopnea, palpitations or radiating jaw, neck or arm pain Respiratory/Chest Respiratory/Chest: Reports chest tightness, cough, dyspnea and sputum; Denies orthopnea Gastrointestinal Gastrointestinal: Denies abdominal pain, diarrhea, nausea or vomiting Genitourinary Genitourinary ED: Denies dysuria or hematuria Musculoskeletal Musculoskeletal: Denies back pain or neck pain Integumentary Denies abscess or rash Neurologic Neurologic: Denies headache(s), paresthesias or weakness Psychiatric Psychiatric: Reports anxiety; Denies suicidal thoughts EXAM Physical Exam Const Vital Signs: 12/26/24 13:53 12/26/24 16:37 12/26/24 16:37 Temperature 98.7 F 98.7 F Temperature Source Oral Oral Pulse Rate 100 99 Respiratory Rate 20 H 22 H Respiratory Effort Respiratory Depth Respiratory Pattern Blood Pressure 144/66 H 135/75 H Blood Pressure Mean 92 95 Pulse Ox 97 99 Oxygen Delivery Method Nasal Cannula Room Air Nasal Cannula Oxygen Flow Rate (L/min) 3 3 12/26/24 16:37 12/26/24 17:24 12/26/24 17:28 Temperature Temperature Source Pulse Rate 102 H Respiratory Rate 23 H 20 H Respiratory Effort Normal Respiratory Depth Normal Respiratory Pattern Normal Blood Pressure Blood Pressure Mean Pulse Ox 99 Oxygen Delivery Method Nasal Cannula Room Air Oxygen Flow Rate (L/min) 3 12/26/24 18:05 12/26/24 18:14 12/26/24 19:58 Temperature 98.6 F Temperature Source Pulse Rate 87 100 109 H Respiratory Rate 18 18 19 H Respiratory Effort Respiratory Depth Respiratory Pattern Blood Pressure 129/75 H 141/81 H Blood Pressure Mean 93 101 Pulse Ox 98 99 Oxygen Delivery Method Oxygen Flow Rate (L/min) Positive well nourished and well developed General Appearance ED: well developed and NAD HEENT Reports moist mucous membranes normocephalic and atraumatic Eyes PERRL and EOMs intact bilaterally Neck full ROM, supple and no JVD Resp normal respiratory effort Resp Narrative: Diffuse expiratory wheezes and some Rales diffusely, symmetrically. Trachea midline. No respiratory distress. Able to converse in full sentences. Cardio regular rate and regular rhythm Cardio Narrative: Soft systolic ejection murmur crescendo-decrescendo LLSB GI non-tender and non-distended Auscultation: normoactive bowel sounds Palpation: soft Back/Spine no CVA tenderness General Back: other FROM Extremity normal to inspection General Extremety ED: Yes edema; Negative for pulses abnormal or tenderness General Extremity: edema bilateral lower extremity Details: moderate (To mid castanon without signs of cellulitis.); Negative for pulses abnormal Neuro oriented x3, CN's II-XII intact bilaterally and no sensory deficits noted Sensorium / Orientation: awake and alert Motor Exam: strength 5/5 throughout Psych Mood & Affect: anxious Skin no rashes or lesions noted and no wounds MDM MDM MDM Narrative Medical decision making narrative: Chest x-ray 1 view on my interpretation shows no acute pneumonia, radiology in agreement. Stable COPD changes noted. Her EKG shows no acute injury changes or signs of acute ischemia. Her initial troponin is 25 which is just out of the normal range, renal function is normal. She was given a couple breathing treatments which really helped her symptoms and she is relatively stable and not hypoxic on her home 3 L oxygen nasal cannula. The second troponin measurement came back unchanged for a delta of 0. She was given another albuterol in the meantime. I offered admission she initially wanted to go home, but she moved from the bed to the bedside commode and she was so winded that it took her 5-10 minutes to recover. She is asking for something for anxiety, specifically alprazolam, so I am giving her a dose along with Solu-Medrol, doxycycline, another albuterol treatment, and she is now changing her mind and okay with admission. I do think this is all her COPD. Additionally patient is acutely anemic compared with her prior labs from 3 months ago. She denies melena or bright red blood per rectum. History & Record Review Additional record(s) reviewed:: Prior labs Lab Data Attestation: I reviewed the patient's lab results. Labs: Laboratory Results - last 24 hr 12/26/24 12/26/24 16:20 17:57 WBC 9.6 RBC 3.43 L Hgb 9.2 L Hct 29.0 L MCV 84.5 MCH 26.8 L MCHC 31.7 L RDW Std Deviation 43.0 RDW Coeff of Augustin 14.0 Plt Count 219 MPV 9.3 Immature Gran % (Auto) 0.800 Neut % (Auto) 83.2 H Lymph % (Auto) 11.3 L [place] % (Auto) 4.5 Eos % (Auto) 0.1 Baso % (Auto) 0.1 Absolute Neuts (auto) 8.0 H Absolute Lymphs (auto) 1.08 Nucleated RBC % 0 Sodium 137 Potassium 4.0 Chloride 88 L Carbon Dioxide 41.6 H Anion Gap 8 BUN 16 Creatinine 0.64 L Estim Creat Clear Calc 65.40 Est GFR (MDRD) Non-Af 96 BUN/Creatinine Ratio 25.1 H Glucose 112 H Calcium 8.9 Troponin T High Sens 25 H D Troponin T Hi Sens 2 Hr 25 H Radiography Diagnostic Testing: Clinical Impression(s) from Imaging Studies Chest X-Ray 12/26/24 15:28 IMPRESSION: Posttreatment changes. No acute abnormality. No significant change Reading Location: [id number] Rhythm Strip Rhythm Strip: Sinus Rhythm Rate: 99 Ectopy: None EKG Initial EKG: Attestation: I personally reviewed and interpreted this EKG as follows: Interpretation: Sinus Rhythm and No Acute Injury Pattern Comments: Enlarged inferior P waves consistent with right atrial enlargement. Normal axis, normal intervals and otherwise unremarkable EKG. Prior EKG tracings: available for review Prior: Unchanged Management Discussion w/another healthcare provider: Hospitalist Discharge Plan Dx/Rx/DC Orders Clinical Impression: Acute respiratory insufficiency, COPD with acute exacerbation, Viral URI with cough, Chest tightness, Anxiety, Anticoagulated on apixaban, Acute anemia Disposition Disposition: [facility]
[2024-12-26 18:38] LABS: Troponin T High Sens 2 HR 25 ng/L (<=14)
--- NOTE | 2024-12-26 19:56 | PCM.HP.STD ---
HPI - General General Date of Admission: 12/26/24 Date of Service: 12/26/24 Chief Complaint: Dyspnea, wheezing, cough. HPI Narrative The patient is a 69 y/o F w/ PMHx: Valvular Heart Disease, GERD, RLS, Anxiety and Depression, Former tobacco use, Former EtOH Abuse, Hx Non-small cell lung cancer status post right lung lobectomy remotely 2003, COPD/Asthma with Chronic Hypoxic Respiratory Failure (2L NC) with allergic rhinitis, HTN who presents to the [facility] ED on 12/26/2024 with history of 3 to 4 days of progressively worsening fatigue, malaise, dyspnea with chest tightness and wheezing coupled unfortunately with significant panic attacks whenever she has been attempting to leave the house with a productive cough specifically of yellow sputum prompting ED evaluation be cautious. She does report that she is [facility] several weeks because of valvular heart disease for evaluation. Patient reports that her stools she believes have been normal in appearance. He does describe ongoing constant tightness with her dyspnea in the chest but no specific stabbing pain or significant pressure or pleuritic discomfort. Workup in the ED included T98.7, heart 100, BP 140/66, respiratory rate 20, 97% on 3 L normally per record on chronic 2 L nasal cannula supplementation with most recent repeat vitals heart rate 100, BP 128/75, respiratory rate 18, 98% on 3 L nasal cannula, CBC with WC 9.6, hgb 9.2, MCV 84.5, platelet 218 with left shift, BMP with chloride 88, carbon oxide 41.6, BUN/creatinine 16/0.64, GFR 96, glucose 112, initial troponin 25 with repeat delta 25, chest x-ray with surgical clips overlying the upper mediastinum and right paratracheal region with some local volume loss and linear scarring as well as COPD type changes with no acute cardiopulmonary findings, EKG with SR with nonspecific changes with no acute evidence of ischemia. In the ED patient ministered albuterol treatment x 3 and DuoNeb therapy x 1 in addition to Xanax 0.25 mg p.o. x 1, doxycycline 100 mg p.o. x 1 and Solu-Medrol 125 mg IV x 1. [facility] Medical History Afib Aortic valve stenosis RLS (restless legs syndrome) History of ETOH abuse Chronic hypoxic respiratory failure, on home oxygen therapy COPD (chronic obstructive pulmonary disease) Anxiety Depression Smoker Asthma Hypertension Migraines Home Medications ?Medication ?Instructions ?Recorded ?Last Taken ?Type albuterol sulfate 90 mcg/actuation 1 - 2 puff inhalation Q4H PRN PRN 04/18/13 09/23/14 History aerosol inhaler (Ventolin HFA) Bronchodialation cyclobenzaprine 10 mg tablet 10 mg PO Q12H pain 04/18/13 09/23/14 History 10 MG fluticasone propionate 50 1 spray intranasal DAILY nasal 04/18/13 09/23/14 History mcg/actuation nasal congestion spray,suspension montelukast 10 mg tablet 10 mg PO DAILY allergies 04/18/13 09/23/14 History 10 MG omeprazole 20 mg capsule,delayed 20 mg PO DAILY heart burn 04/18/13 09/23/14 History release 20 MG tiotropium bromide 18 mcg capsule 1 puff inhalation DAILY wheezing 04/18/13 09/23/14 History with inhalation device (Spiriva with HandiHaler) Oxygen, Home [Home Oxygen] 2.5 lpm PRN PRN Dyspnea 10/22/13 09/23/14 History sertraline 100 mg tablet 100 mg PO BID mood 10/22/13 09/23/14 History fluticasone 500 mcg-salmeterol 50 1 puff inhalation BID shortness of 10/26/13 09/23/14 Rx mcg/dose blistr powdr for breath ##1 inhalation (Advair Diskus) Ropinirole Hcl 0.25 mg PO QHS restless legs 09/23/14 Unknown History prednisone 10 mg tablet 15 mg PO QODAY PRN FLARE UPS 04/03/15 Unknown History ipratropium 0.5 mg-albuterol 3 mg 3 ml inhalation Q4HWA.RT wheezing 05/13/16 Unknown Rx (2.5 mg base)/3 mL nebulization ##30 soln lorazepam 0.5 mg tablet 0.5 mg PO QHS anxiety #7 tabs 05/05/20 Unknown Rx nicotine (polacrilex) 2 mg gum 2 mg buccal Q2H to stop smoking 07/22/23 Unknown Rx (Nicorette) #20 ea cholecalciferol (vitamin D3) 50 50 mcg PO DAILY vitamin 10/18/23 Unknown History mcg (2,000 unit) capsule (Vitamin D3) ipratropium 0.5 mg-albuterol 3 mg 3 ml inhalation Q6H PRN shortness 10/18/23 Unknown Rx (2.5 mg base)/3 mL nebulization of breath or wheezing #180 mL soln buspirone 10 mg tablet 10 mg PO BID anxiety 10/02/24 Unknown History hydrocodone-acetaminophen 5-325mg 1 tab PO BID PRN PRN pain 10/03/24 Unknown History 5mg-325mg nicotine 14 mg/24 hr daily 14 mg transdermal DAILY prn #28 ea 10/09/24 Unknown Rx transdermal patch apixaban 5 mg tablet (Eliquis) 5 mg PO BID blood thinne #60 tabs 11/03/24 Unknown Rx carvedilol 6.25 mg tablet 6.25 mg PO BID bp #60 tabs 11/03/24 Unknown Rx Allergy/AdvReac Type Severity Reaction Status Date / Time No Known Allergies Allergy Verified 12/26/24 13:56 Family History Mother Hypertension Throat cancer Father Hypertension Stomach cancer Surgical History H/O exploratory laparotomy History of lung surgery History of cholecystectomy Social History household members: significant other and none housing: apartment Smoking Status: Former smoker alcohol intake: former substance use type: does not use ROS ROS Narrative Admission Review of Systems: CONSTITUTIONAL: No weight loss, fever, chills, + weakness or fatigue. HEENT: Eyes: No visual loss, blurred vision, double vision or yellow sclerae. Ears, Nose, Throat: No hearing loss, sneezing, congestion, runny nose or sore throat. SKIN: No rash or itching, lesions, wounds. CARDIOVASCULAR: + Chest tightness, mild chronic not markedly pitting. No palpitations, orthopnea, syncopal events. RESPIRATORY: + Dyspnea, cough with productive sputum, wheezing. No hemoptysis. GASTROINTESTINAL: No anorexia, nausea, vomiting or diarrhea, abdominal pain, melena, BRBPR. GENITOURINARY: No dysuria, frequency, urgency or retention. NEUROLOGICAL: No headache, dizziness, syncope, paralysis, ataxia, numbness or tingling in the extremities, focal weakness, change in bowel or bladder control, seizure. MUSCULOSKELETAL: + muscle, back pain, joint pain or stiffness. HEMATOLOGIC: + New onset anemia, easy bleeding/bruising. LYMPHATICS: No enlarged nodes. No history of splenectomy. PSYCHIATRIC: + History of anxiety and depression. ENDOCRINOLOGIC: No reports of sweating, cold or heat intolerance. No polyuria or polydipsia. ALLERGIES: + Allergic rhinitis, asthma/COPD. Vital Signs Vital Signs Vital Signs: 12/26/24 13:53 12/26/24 16:37 12/26/24 16:37 Temperature 98.7 F 98.7 F Temperature Source Oral Oral Pulse Rate 100 99 Respiratory Rate 20 H 22 H Respiratory Effort Respiratory Depth Respiratory Pattern Blood Pressure 144/66 H 135/75 H Blood Pressure Mean 92 95 Pulse Ox 97 99 Oxygen Delivery Method Nasal Cannula Room Air Nasal Cannula Oxygen Flow Rate (L/min) 3 3 12/26/24 16:37 12/26/24 17:24 12/26/24 17:28 Temperature Temperature Source Pulse Rate 102 H Respiratory Rate 23 H 20 H Respiratory Effort Normal Respiratory Depth Normal Respiratory Pattern Normal Blood Pressure Blood Pressure Mean Pulse Ox 99 Oxygen Delivery Method Nasal Cannula Room Air Oxygen Flow Rate (L/min) 3 12/26/24 18:05 12/26/24 18:14 Temperature Temperature Source Pulse Rate 87 100 Respiratory Rate 18 18 Respiratory Effort Respiratory Depth Respiratory Pattern Blood Pressure 129/75 H Blood Pressure Mean 93 Pulse Ox 98 Oxygen Delivery Method Oxygen Flow Rate (L/min) Weight Weight: 163 lb 2.273 oz Body Mass Index (BMI) 28.0 Physical Exam Narrative Physical Examination: General: Awake, alert, oriented x 3 and cooperative, seated upright in the ED bed, fatigued, breathing treatment ongoing currently, mild tachypnea persistent. Skin: Normal color, normal turgor, no icterus, no cyanosis except occasional stage ecchymoses, abrasion. HEENT: AT/NC, EOMI, PERRLA, mildly dry MM, mildly poor dentition, difficult discern carotid bruit given referred sounds from breathing treatment, no marked JVD evident. Lungs: Severely diminished, greater bases, tachypnea evident, some accessory muscle usage, expiratory wheezing primarily noted, no marked rales or rhonchi, breathing treatment in process. Heart: Mildly tachycardic with regular rhythm; no gallop, rub audible, + SM. Abdomen: Soft, overweight, NTTP, ND, distant normal BS, no markedly appreciated HSM. Extremities: No cyanosis, no clubbing, mild ankle not markedly pitting edema which she notes is chronic. Neurological: Patient awake, alert, oriented as noted, cognitive function intact; pupils equally reactive to light and accommodation, cranial nerves grossly normal, moving all 4 extremities, no focal deficits, strength moderately to severely globally decreased. Psychiatric: Affect appears fatigued, anxious, does have underlying anxiety and depressive history. Results Lab / Micro Data 12/26/24 16:20 12/26/24 16:20 Labs: Laboratory Results - last 24 hr 12/26/24 16:20: WBC 9.6, RBC 3.43 L, Hgb 9.2 L, Hct 29.0 L, MCV 84.5, MCH 26.8 L, MCHC 31.7 L, RDW Std Deviation 43.0, RDW Coeff of Augustin 14.0, Plt Count 219, MPV 9.3, Immature Gran % (Auto) 0.800, Neut % (Auto) 83.2 H, Lymph % (Auto) 11.3 L, Noble % (Auto) 4.5, Eos % (Auto) 0.1, Baso % (Auto) 0.1, Absolute Neuts (auto) 8.0 H, Absolute Lymphs (auto) 1.08, Nucleated RBC % 0, Sodium 137, Potassium 4.0, Chloride 88 L, Carbon Dioxide 41.6 H, Anion Gap 8, BUN 16, Creatinine 0.64 L, Estim Creat Clear Calc 65.40, Est GFR (MDRD) Non-Af 96, BUN/Creatinine Ratio 25.1 H, Glucose 112 H, Calcium 8.9, Troponin T High Sens 25 H D 12/26/24 17:57: Troponin T Hi Sens 2 Hr 25 H Rhythm Strip Rhythm Strip: Sinus Rhythm Rate: 99 Ectopy: None Imaging Radiology Impression Chest X-Ray 12/26/24 15:28 IMPRESSION: Posttreatment changes. No acute abnormality. No significant change Reading [id number] Assessment & Plan Assessment/Plan (1) COPD with acute exacerbation: PLAN: Plan The patient is a 69 y/o F w/ PMHx: Valvular Heart Disease, GERD, RLS, Anxiety and Depression, Former tobacco use, Former EtOH Abuse, Hx Non-small cell lung cancer status post right lung lobectomy remotely 2003, COPD/Asthma with Chronic Hypoxic Respiratory Failure (2L NC) with allergic rhinitis, HTN who presents to the [facility] ED on 12/26/2024 with history of 3 to 4 days of progressively worsening fatigue, malaise, dyspnea with chest tightness and wheezing coupled unfortunately with significant panic attacks whenever she has been attempting to leave the house with a productive cough specifically of yellow sputum prompting ED evaluation be cautious. #1. Acute on Chronic COPD exacerbation with acute hypoxia on chronic hypoxic respiratory failure in addition to significant acute new onset normocytic anemia of unclear significance as noted #2 with indeterminate cardiac enzymes of unclear significance: Will admit to PCU in case of BIPAP needs, will cycle cardiac enzymes to be cautious although suspect secondary to hypoxemia in the acute setting, will obtain ABG, will maintain on oxygen with wean as tolerated to home oxygen supplementation, continue ATC duonebs, PRN albuterol, IV methylprednisolone cautiously given #2 as noted, HOB, IS parameters, will obtain sputum Cx, respiratory viral panel, procalcitonin, administered doxycycline in the ED and will continue oral cefdinir in the interim; however, if procalcitionin normal may consider de-escalation. Will continue patient home montelukast and fluticasone home regimen. #2. Acute new onset normocytic anemia: Last labs at during prior admission anthony was started on Eliquis regimen given PAF/flutter, hemoglobin previous to this was normal, upon current presentation hemoglobin 9.2, MCV 84.5, will temporarily hold NOAC, temporarily transition to clears until HH trending obtained, will request guaiac, iron panel, ferritin be cautious, continue to closely trend hemoglobin and if appropriate involve gastroenterology. Continue PPI oral regimen but will increase. Cycle HH. #3. Valvular heart disease: Recent cardiology visit 11/03/2024 of note, recent echocardiogram with severe concentric LVH with EF 70%, stage I diastolic dysfunction, severely calcified aortic valve with severe aortic valve stenosis with peak mean gradient 50 mmHg at which point patient was started at [facility], Coreg and verapamil as well as Eliquis with plan as noted [facility] with upcoming cardiac catheterization for consideration of TAVR. As noted above #2 will cautiously this time hold Eliquis temporarily. #4. History non-small cell lung cancer: Patient diagnosed remotely, status post right lung lobectomy, considered in remission, encourage continued follow-up outpatient as previously arranged. #5. Hypertension: Continue home regimen including Coreg, verapamil, PRN hydralazine. #6. Restless leg syndrome: Will continue patient on Requip regimen. #7. Anxiety and depression: Will continue patient on sertraline, twice daily buspirone and low-dose lorazepam regimen, as noted administered low-dose of Xanax in the ED per ED physician. #8. Allergic rhinitis: Will continue patient home montelukast and fluticasone regimen. #9. Former alcohol abuse: Patient with previous heavy alcohol use, encourage continued sobriety. #10. Former tobacco use: Encouraged continued tobacco cessation. #11. PAF/flutter: Will continue patient home Coreg, [place] regimen, as noted above #2 will temporarily hold Eliquis given concern for new onset acute normocytic anemia. #12. GERD: Will continue patient on PPI but increase temporarily given #2. #13. DVT prophylaxis: SCDs, holding NOAC as noted above given concern for new anemia. #14. CODE status: Patient MIRIAM is her significant Mike and living will is currently in place. Discussed CODE status at length including difference between FULL code, DNR-CCA and DNR-CC status. Following discussions about the differences in these status, requested Full Code status. She does however state strongly following discussions that if her quality of life was nonexistent she would want to transition to comfort. Advanced Care Planning Face to Face Time: 16 minutes. Charges/Coding Visit Charges Inpatient E&M: 63040 Init Hosp L3 Procedures Hospitalists Procedures: 46129 Advncd Care Plan 30 Min
[2024-12-26 20:46] LABS: Allen Test Positive; Base Excess > 30 mmol/L (-2 to +2); FI02 2.0; PO2 106 mmHG (75-100); SITE L Radial; SO2 98 % (95-99); Time Given 20:42:58
[2024-12-26 21:39] LABS: Troponin T High Sens 4 HR 26 ng/L (<=14)
[2024-12-26 22:13] LABS: Ferritin 22 ng/mL (22-378); Iron 25 ug/dL (50-170); Iron Binding Capacity,Total 313 ug/dL (250-450); Iron Binding Capacity,Unsat 288 ug/dL (228-428); Magnesium 1.9 mg/dL (1.5-2.2)
[2024-12-26 22:16] LABS: Procalcitonin 0.04 ng/mL (<=0.10)
[2024-12-26 22:28] LABS: Hematocrit 26.5 % (37-47); Hemoglobin 8.5 g/dL (12.0-15.0)
[2024-12-26] MEDS: Pramipexole Di-HCl 0.125 MG Tablet PO (22:32)
[2024-12-26] MEDS: Verapamil SR 180 MG CAPSULE PO (22:32)
[2024-12-26] MEDS: HYDROcodone Bitartrate/Apap 5/325 Tablet PO (22:36)
--- OUTSIDE RECORDS SUMMARY | 2024-12-26 23:42 | XMS RPT_ITS | CCD ---
Author Organization [facility] Care Team Providers Care Animal Keeper Name Role Phone Yoseph Fall MD Primary Care Provider Dr. Yoseph Fall Primary Care Provider Dr. Dallas Mena Emergency Provider Dr. José Cunningham Admit Provider Unavailabl e Dr. José Cunningham Other Provider Unavailabl e Dr. Jan Bolanos Attending Provider Dr. Jan Bolanos Other Provider Yoseph Fall MD Primary Care Provider Yoseph Fall MD Primary Care Provider Tannhof IMPORT EXPORT AGENT.GRAPHIC DESIGN SPECIALIST, Iman Unavailable Jt IMPORT EXPORT AGENT.GRAPHIC DESIGN SPECIALIST, Nelson Unavailable Tannhof IMPORT EXPORT AGENT.GRAPHIC DESIGN SPECIALIST, Iman Unavailable Unavail able Tannhof IMPORT EXPORT AGENT.GRAPHIC DESIGN SPECIALIST, Iman Unavailable Dr. Yoseph Fall MD Primary Care Provider Dr. Riley Jeff DO Emergency Provider Dr. Dionne Porter MD Attending Provider Dr. Dionne Porter MD Admit Provider Dr. Dionne Porter MD Admit Provider Dr. Dionne Porter MD Other Provider Dr. Jan Bolanos MD Other Provider Dr. Junito Madrid MD Other Provider Dr. Alessandro Palma MD Attending Provider Gilmar OWEN, Dr. Lynne Hooker Other Provider Luis Miguel OWEN, Dr. Jan Harris Attending Provider Julius OWEN, Dr. Wild Attending Provider Gilmar OWEN, Dr. Lynne Hooker Attending Provider John OWEN, Dr. Carranza Attending Provider Erinn OWEN, Dr. Rodriguez Attending Provider Unavaila jillian Palma MD, Dr. Francois Other Provider Eufemia OWEN, Dr. Arredondo Referring Provider Charley BABCOCK, Lindsay Soliz Attending Provider Dillon Lopez Attending Unavailable Eldersabino, Yoseph Primary Care Unavailable Dionne Porter Consulting Unavailable Dionne Porter Admitting Unavailable Kormarika, Lynne Nhung Attending Unavailable Yoseph Fall Primary Care Unavailable Jan Bolanos Consulting Unavailable Junito Madrid Consulting Unavailable Gilmar, Lynne Hooker Consulting Unavailable Junito Madrid Attending Unavailable ElderYoseph gallo Primary Care Unavailable Dionne Porter Attending Unavailable Michael Plasencia Attending Unavailable Alessandro Palma Attending Unavailable Louie Alessandro Consulting Unavailable Jan Bolanos Attending Unavailable Yoseph Fall Referring Unavailable Charley BABCOCK, Lindsay Soliz Attending Unavail able Yoseph Fall Primary Care Unavailable Dionne Porter Consulting Unavailable Alessandro Palma Attending Unavailable Yoseph Fall Primary Care Unavailable Dionne Porter Admitting Unavailable Jan Bolanos Consulting Unavailable Junito Madrid Consulting Unavailable Gilmar, Lynne Nhung Consulting Unavailable Richard Broussard RN Unavailable Unavailable Rebecca IMPORT EXPORT AGENT.GRAPHIC DESIGN SPECIALIST, Gregor Unavailable Unavailable Primary Care Provider UnavailZARIA Chisholm Attending Unavailable ZARIA SHEA Referring Unavailable ZARIA SHEA Attending Unavailable RUBI CORBETT Attending Unavailable YOSEPH FALL Primary Care Unavailable YOSEPH FALL Attending Unavailable YOSEPH FALL Primary Care Unavailable YOSEPH FALL Attending Unavailable YOSEPH FALL Primary Care Unavailable YOSEPH FALL Attending Unavailable YOSEPH FALL Referring Unavailable YOSEPH FALL Primary Care Unavailable JESUS CARTER Attending Unavailable YOSEPH FALL Primary Care Unavailable SELF Referring Unavailable GREGOR FERNANDEZ Attending YOSEPH Floyd Referring Unavailable YOSEPH FALL Primary Care Unavailable GREGOR FERNANDEZ Attending Stephanie Zarate MD, Dr. Rod Emergency Provider Medications Current Medications Medication Drug Class(es) Dates Sig (Normalized) Sig (Original) acetaminophen 325 mg / HYDROcodone bitartrate 5 mg oral tablet (20 sources) Opioid Agonist Start: 06-15-2023 End: 01-18-2025 Hydrocodone-Acetam inophen 5-325 mg tablet Active 1 {tbl} PO TWICE DAILY NEEDED as needed for pain October 03, 2024 12:00am Start: 07-17-2021 End: 05-20-2023 take 1 tablet by mouth twice daily as needed for pain HYDROcodone-acetaminophen (NORCO) 5-325 mg per tablet Indications: Chronic low back pain with sciatica, sciatica laterality unspecified, unspecified back pain laterality Take 1 tablet by mouth two times a day as needed for pain for up to 30 days. 33 tablet 0 02/19/2023 Active Start: 09-23-2014 End: 10-18-2023 take 7.5-325 mg by mouth every six hours as needed for pain Hydrocodone-Acetaminophen 1 EACH tablet Discontinued 7.5 - 325 mg PO EVERY 6 HOURS NEEDED as needed for Pain September 23, 2014 12:00am October 18, 2023 1:06am Start: 09-23-2014 take 7.5-325 mg by m outh every six hours as needed Hydrocodone-Acetaminophen Active 7.5 - 3 25 MG PO EVERY 6 HOURS NEEDED September 23, 2014 12:00am take 1 tablet by richard th every six hours as needed HYDROcodone-acetaminophen ([place]) 5-325 MG tablet Take 1 tablet by mouth every 6 hours as needed. Active Comment on above: Take 1 tablet [...] Do not start before June 15, 2023. [id number] actuat albuterol 0.09 mg/actuat metered dose inhaler (20 sources) beta2-Adrenergic Agonist Start: 09-22-2024 take 2 puff(s) by inhalation every four hours albuterol 108 (90 Base) MCG/ACT inhaler Inhale 2 puffs every 4 hours. 09/22/2024 Active Start: 03-05-2023 End: 02-14-2024 take 2 puff(s) by inhalation every four [...] every two hours as needed Albuterol Sulfate 2.5 MG/3 ML Vial.Neb. Discontinued 2.5 mg INHALATION EVERY 2 HOURS NEEDED as needed for Bronchodialation 30 0 October 26, 2013 3:37pm May 13, 2016 11:48am Start: 04-18-2013 End: 10-26-2013 take 2.5 mg by inhalation every four hours as needed Albuterol Sulfate 2.5 MG/3 ML Vial.Neb. Discontinued 2.5 mg INHALATION EVERY 4 HOURS NEEDED as needed for Bronchodialation April 18, 2013 1:00am October 26, 2013 3:38pm Start: 04-18-2013 Albuterol Sulf ate (Ventolin Hfa) 1 INHALER inhaler Active 1 - 2 NMA INHALATION EVERY 4 HOURS NEEDED as needed for Bronchodialation April 18, 2013 1:00am Start: 04-18-2013 take 1 puff(s) by in [...] solution (20 sources) Anticholinergic, beta2-Adrenergic Agonist Start: 10-18-19 take 1 mL by inhalation every six hours as needed for wheezing Ipratropium-Albutero l 0.5 mg-3 mg(2.5 mg base)/3 mL solution for nebulization Active 3 mL INHALATION EVERY 6 HOURS as needed for shortness of breath or wheezing 180 0 October 18, 2023 12:00am Start: 04-13-2023 End: 08-29-2024 ipratropium-albuterol (DUONE B) 0.5 mg-3 mg(2.5 mg base)/3 mL nebu inhale 1 ampule via nebulizer every 4 hours if needed for wheezing. Use over 5 to 15 minutes 360 mL 2 08/29/2024 Active Start: 05-13-2016 take 1 mL by inhalat ion every four hours Ipratropium-Albuterol 3 ML solution for nebulization Active 3 mL INHALATION EVERY 4 HOURS WHILE AWAKE 30 May 13, 2016 1:00am wheezing Start: 05-13-2016 End: 05-15-2022 ipratropium-albuterol (DUONE B) [...] 02/14/2024 Active azithromycin 250 mg oral tablet (6 sources) Macrolide Antimicrobial Start: 10-22-2023 End: 10-27-2023 azithromycin (ZITHROMAX Z-DAHLIA) 250 mg tablet Take 2 tablets day one, then, 1 tablet daily until gone. 6 tablet 0 10/22/2023 10/27/2023 Active Start: 10-18-2023 End: 09-29-2024 Azithromycin (Zithromax) 250 mg tablet Discontinued 0 PO .COMPLEX 6 0 October 18, 2023 12:00am September 29, 2024 5:29am For 250 mg dose pack: take 500 mg today (day 1), then 250 mg for 4 days (days 2-5) Start: 07-19-2023 End: 07-24-2023 azithromycin (ZITHROMAX Z-PA K) 250 mg tablet Take 2 tablets day one, then, 1 tablet daily until gone. 6 tablet 0 07/19/2023 07/24/2023 Active Comment on above: Take 2 tablets day o ne, then, 1 tablet daily until gone. busPIRone hydrochloride 10 mg oral tablet (20 sources) Start: 12-19-2024 take 2 tablets by mouth twice daily busPIRone (BUSPAR) 10 mg tablet Take 2 tablets by mouth two times a day. 120 tablet 11 12/19/2024 Active Start: 04-07-2024 End: 12-19-2024 take 1 tablet by mouth twice daily Buspirone 10 mg tablet Active 10 mg PO TWICE A DAY October 02, 2024 12:00am anxiety carvedilol 6.25 mg oral tablet (20 sources) alpha-Adrenergic He, beta-Adrenergic He Start: 10-09-2024 End: 11-03-2024 take 1 tablet by mouth twice daily at mealtime Carvedilol 6.25 mg tablet Active 6.25 mg PO TWICE A DAY 60 November 03, 2024 1:28pm bp must administer with a meal/food cholecalciferol 0.05 mg oral capsule (20 sources) Vitamin D Start: 10-18-2023 take 1 capsule by mouth once daily Cholecalciferol (Vitamin D3) (Vitamin D3) 50 mcg (2,000 unit) capsule Active 50 ug PO DAILY October 18, 2023 12:00am vitamin Start: 12-31-2021 End: 06-22-2024 take 1 capsule by mouth once daily Cholecalciferol, Vitamin D3, 50 mcg (2,000 unit) cap Take 1 capsule by mouth once daily. 90 capsule 3 06/22/2024 Active Start: 07-17-2021 take 1 capsule by mo [facility] once daily Cholecalciferol, Vitamin D3, 50 mcg (2,000 unit) cap Take 1 capsule by mouth once daily. 30 capsule 5 07/17/2021 Active Comment on above: Take 1 capsule by mo [facility] once daily. COMPOUNDED PRESCRIPTION (20 sources) Start: [...] needed for muscle spasm. 60 tablet 5 12/08/2024 Active Start: 05-07-2023 End: 10-01-2023 take 1 [...] Active Start: 07-17-2021 take 1 tablet by [facility] twice daily as needed for muscle spasms cyclobenzaprine (FLEXERIL) 10 mg tablet Indications: Generalized osteoarthrosis, involving multiple sites Take 1 tablet by mouth twice daily as needed for muscle spasm. 60 tablet 5 07/17/2021 Active Start: 04-18-2013 take 1 tablet by richard th every twelve hours Cyclobenzaprine 10 MG tablet Active 10 mg PO Q12H April 18, 2013 1:00am pain Comment on above: Take 1 tablet by richard th twice daily as needed for muscle spasm. Take 1 tablet by richard th two times a day as needed for muscle spasm. Disposable Gloves (DISPOSABLE LATEX-FREE GLOVES) [facility] (20 sources) Start: 10-08-2017 Disposable Gloves (DISPOSABLE LATEX-FREE GLOVES) [facility] Indications: Generalized osteoarthrosis, involving multiple sites , Chronic obstructive pulmonary disease, unspecified COPD type ([facility]) , Chronic low back pain with sciatica, sciatica laterality unspecified, unspecified back pain laterality 1 Box once every month. ICD 10: M15.9, J44.9, M54.40 1 Each 10/08/2017 Active Comment on above: 1 Box once every wed. ICD 10: M15.9, J44.9, M54.40 doxycycline hyclate 100 mg oral tablet (10 sources) Tetracycline-cla ss Drug Start: 11-24-2024 End: 12-04-2024 take 1 tablet by mouth twice daily doxycycline (VIBRA-TABS) 100 mg tablet Indications: Stage 3 severe COPD by GOLD classification ([facility]) Take 1 tablet by mouth two times a day for 10 days. 20 tablet 11/24/2024 12/04/2024 Active Start: 04-18-2013 End: 05-02-2013 take 1 capsule by mouth twice daily Doxycycline Hyclate 100 MG capsule Discontinued 100 mg PO TWICE A DAY 20 0 April 18, 2013 1:00am May 02, 2013 9:19pm fluticasone propionate 0.05 mg/actuat metered dose nasal spray (20 sources) Corticosteroid Start: 08-21-2024 take 2 spray(s) by mouth once daily fluticasone (Flonase) 50 MCG/ACT nasal spray use 2 sprays in each nostril daily. Rinse mouth after use 08/21/2024 Active Start: 04-18-2013 End: 09-15-2023 Fluticasone Propionate 1 SPR AY spray,suspension Active 1 NMA INTRANASAL DAILY April 18, 2013 1:00am nasal congestion Start: 04-18-2013 Fluticasone Pr opionate Active 1 SPRAY INTRANASAL DAILY April 18, 2013 1:00am Comment on above: use 2 sprays in each nostril daily. Rinse mouth after use 60 actuat fluticasone propionate 0.5 mg/actuat / salmeterol 0.05 mg/actuat dry powder inhaler (20 sources) Corticosteroid, beta2-Adrenergic Agonist Start: 09-22-2024 take 1 puff(s) by mouth twice daily Fluticasone-Salmeter ol 500-50 MCG/ACT aerosol powder Inhale 1 Puff as instructed two times a day. Rinse and gargle mouth with water after use. 09/22/2024 Active Start: 12-24-2023 take 1 puff(s) by mo [facility] twice [...] Start: 01-15-2023 take 1 puff(s) by mo [facility] twice daily fluticasone-salmeterol (ADVAIR DISKUS) 500-50 mcg/dose [...] Discontinued Start: 12-31-2021 take 1 puff(s) by [facility] twice daily fluticasone-salmeterol (ADVAIR DISKUS) 500-50 mcg/dose dsdv Inhale 1 Puff as instructed twice daily. Rinse and gargle mouth with water after use. 3 Each 3 12/31/2021 Active Start: 04-21-2021 take 1 puff(s) by [facility] twice daily fluticasone-salmeterol (ADVAIR DISKUS) 500-50 mcg/dose dsdv Inhale 1 Puff as instructed twice daily. Rinse and gargle mouth with water after use. 3 Each 3 04/21/2021 Active Start: 04-21-2021 take 1 puff(s) by [facility] twice daily fluticasone-salmeterol (ADVAIR DISKUS) 500-50 mcg/dose dsdv Inhale 1 Puff as instructed twice daily. Rinse and gargle mouth with water after use. 3 Each 3 04/21/2021 Active Start: 10-26-2013 take 1 puff(s) by in halation twice daily Fluticasone Propion-Salmeterol (Advair Diskus) 1 PUFF inhaler Active 1 NMA INHALATION TWICE A DAY October 26, 2013 3:37pm shortness of breath Start: 10-26-2013 take 1 puff(s) by in halation twice daily Fluticasone Propion-Salmeterol (Advair Diskus) 1 PUFF inhaler Active 1 NMA INHALATION TWICE A DAY October 26, 2013 3:37pm Start: 10-26-2013 take 1 puff(s) by in halation twice daily Fluticasone Propion-Salmeterol (Advair Diskus) 1 PUFF inhaler Active 1 PUFF INHALATION TWICE A DAY October 26, 2013 3:37pm Start: 04-18-2013 End: 10-26-2013 take 1 puff(s) by inhalation twice daily Fluticasone Propion-Salmeterol (Advair Diskus) 1 PUFF inhaler Discontinued 1 NMA INHALATION TWICE A DAY April 18, 2013 1:00am October 26, 2013 3:38pm Start: 04-18-2013 End: 10-26-2013 take 1 puff(s) [...] and gargle mouth with water after use. furosemide 20 mg oral tablet (20 sources) Loop Diuretic Start: 10-21-19 25 take 1 tablet by mouth once daily furosemide (LASIX) 20 mg tablet Take 1 tablet by mouth once daily. 30 tablet 2 10/20/2024 Active hydrOXYzine hydrochloride 25 mg oral tablet (2 sources) Antihistamine Start: 12-23-19 25 take 1 tablet by mouth three times daily as needed hydrOXYzine HCl (ATARAX) 25 mg tablet Indications: Itching Take 1 tablet by mouth three times a day as needed (for itching). 30 tablet 2 12/22/2024 Active Incontinence Pad, Liner, Disp (POISE PADS) pads (20 sources) Start: 05-22-19 17 Incontinence Pad, Liner, Disp (POISE PADS) pads Indications: Mixed incontinence urge and stress (male)(female) Use pads as directed. Dx: N39.46 88 Each 5 05/22/2016 Active Comment on above: Use pads as directed . Dx: N39.46 ammonium lactate 120 mg/ml topical lotion (20 sources) Start: 08-16-19 ammonium lactate (AMLACTIN) 12 % lotion Indications: Other psoriasis Apply 1 application to affected area as needed for Dry Skin. 225 g 2 08/15/2020 Active Comment on above: Apply 1 application to affected area as needed for Dry Skin. levoFLOXacin 500 mg oral tablet (20 sources) Quinolone Antimicrobial Start: 10-10-19 End: 11-01-19 take 1 tablet by mouth once daily levoFLOXacin (LEVAQUIN) 500 mg tablet Take 500 mg by mouth once daily. 10/09/2024 Active Start: 07-22-2023 End: 10-18-2023 take 1 tablet by mouth once daily Levofloxacin 750 mg tablet Discontinued 750 mg PO DAILY July 22, 2023 12:00am October 18, 2023 1:07am LORazepam 0.5 mg oral tablet (6 sources) Benzodiazepine Start: 05-05-2020 take 1 tablet by mouth at bedtime Lorazepam 0.5 MG tablet Active 0.5 mg PO AT BEDTIME May 05, 2020 1:00am anxiety losartan potassium 50 mg oral tablet (20 sources) Angiotensin 2 Receptor He Start: 08-15-2020 take 0.5 tablet by mouth once daily losartan (COZAAR) 50 mg tablet Take 0.5 tablets by mouth once daily. 30 tablet 11 08/15/2020 Active Comment on above: Take 0.5 tablets by mouth once daily. montelukast 10 mg oral tablet (20 sources) Leukotriene Receptor Antagonist Start: 06-29-2022 End: 06-01-2024 montelukast (SINGULAIR) 10 mg tablet ONE -TWO TABS Q 4HOURS PRN 60 tablet 5 04/07/2024 06/01/2024 Discontinued (Erroneous entry) Start: 04-18-2013 End: 05-27-2025 take 1 tablet by mouth once daily Montelukast 10 MG tablet Active 10 mg PO DAILY April 18, 2013 1:00am allergies Comment on above: Take 1 tablet by [...] 02/19/2023 Discontinued Start: 05-17-2020 Nebulizer Acce ssories misc Indications: Chronic obstructive [...] above: Use as directed. Dx: COPD J44.9 24 hr nicotine 0.583 mg/hr transdermal system (20 sources) Cholinergic Nicotinic Agonist Start: End: apply 1 dose transdermal route every twenty-four hours as needed Nicotine 14 mg/24 hr Patch 24 Hour Active 14 mg TD DAILY October 09, 2024 12:00am prn Start: 07-22-2023 Nicotine (Mohamud crilex) (Nicorette) 2 mg gum Active 2 mg BUCCAL Q2H 20 July 22, 2023 12:00am to stop smoking Start: 05-24-2023 Nicotine Polac rilex 2 mg [...] betw een cheek and gum as needed. nystatin [id number] unt/ml oral suspension (20 sources) Polyene Antifungal [...] capsule (20 sources) Proton Pump Inhibitor Start: 3 End: take 1 capsule by mouth once daily Omeprazole 20 MG capsule Active 20 mg PO DAILY April 18, 2013 1:00am heart burn Comment on above: TAKE 1 CAPSULE EVERY DAY on an empty stomach Take 1 capsule by [facility] once daily. ON AN EMPTY STOMACH Oxygen, Home (Home Oxygen) (6 sources) Start: 4 Oxygen, Home (Home Oxygen) Active 2.5 LPM NASAL NEEDED as needed for Dyspnea October 22, 2013 12:00am Start: 10-22-2013 Oxygen, Home ( Home Oxygen) Active 2.5 LPM NASAL NEEDED October 22, 2013 12:00am OXYGEN, HOME THERAPY, (20 sources) Start: 05-11-2018 OXYGEN, HOME T HERAPY, Indications: Chronic obstructive pulmonary disease, unspecified COPD type (HCC) 2.5 L/min by Nasal Cannula route continuous. Use as directred 1 Units 11 05/11/2018 Active Comment on above: 2.5 L/min by Nasal C annula route continuous. Use as directred OXYGEN-AIR DELIVERY SYSTEMS DEVICE (20 sources) Start: 04-13-2005 OXYGEN-AIR DEL YANNA SYSTEMS DEVICE as necessary 0 04/13/2005 Active Comment on above: as necessary predniSONE 10 mg oral tablet (20 sources) Start: 11-13-2024 predniSONE (DE LTASONE) 10 mg tablet Indications: Stage 3 severe COPD by GOLD classification ([facility]) Take 1.5 pills every day or every other day as needed 45 tablet 5 11/13/2024 Active Start: 08-21-2024 End: 11-13-2024 take 1.5 tablets by mouth every other day predniSONE (DELTASONE) 10 mg tablet Indications: Stage 3 severe COPD by GOLD classification ([facility]) Take 1.5 tablets by mouth every other day. 30 tablet 5 10/12/2024 11/13/2024 Discontinued Start: 10-18-2023 End: 11-03-2024 take 2 tablets by mouth once daily Prednisone 20 mg tablet Discontinued 40 mg PO DAILY 10 5 0 October 09, 2024 3:54pm November 03, 2024 1:25pm Start: 07-22-2023 End: 10-18-2023 take 4 tablets by mouth once daily, then take 3 tablets by mouth once daily, then take 2 tablets by mouth once daily, then take 1 tablet by mouth once daily, then take 0.5 tablet by mouth once daily Prednisone 10 mg tablet Discontinued 10 mg PO DAILY 32 0 July 22, 2023 12:00am October 18, 2023 1:08am Take 4 tablets daily for 3 days [...] 09/30/2021 Discontinued Start: 05-13-2016 End: 07-20-2023 Prednisone 20 MG tablet Disc ontinued 20 mg PO DAILY@0800 30 0 May 13, 2016 1:00am July 20, 2023 4:38am Take 2 tabs for 3 days, then one tab for 3 days, then 1/2 pill for 7 days, then stop. Start: 04-03-2015 Prednisone 10 MG tablet Active 15 mg PO EVERY OTHER DAY as needed for FLARE UPS April 03, 2015 12:14pm Start: 04-03-2015 Prednisone Act ene 15 MG PO NEEDED April 03, 2015 12:14pm Start: 09-25-2014 End: 04-03-2015 take 4 tablets by mouth once daily, then take 3 tablets by mouth once daily, then take 2 tablets by mouth once daily, then take 1 tablet by mouth once daily Prednisone 10 MG tablet Discontinued 10 mg PO DAILY 30 0 September 25, 2014 12:00am April 03, 2015 12:14pm 4 tabs daily 3 days, 3 tabs daily 3 days, 2 tabs daily 3 days, 1 tab daily 3 days. Start: 09-23-2014 End: 09-25-2014 take 1 tablet by mouth once daily Prednisone 20 MG tablet Discontinued 20 mg PO DAILY@0800 September 23, 2014 12:00am September 25, 2014 11:14am Start: 04-18-2013 End: 05-04-2013 take 4 tablets by mouth once daily Prednisone 10 MG tablet Discontinued 40 mg PO DAILY April 18, 2013 1:00am May 04, 2013 4:26pm Start: 04-18-2013 End: 05-02-2013 take 6 tablets by mouth once daily, then take 4 tablets by mouth once daily, then take 2 tablets by mouth once daily, then take 1 tablet by mouth once daily Prednisone 10 MG tablet Discontinued 10 mg PO DAILY 48 0 April 18, 2013 1:00am May 02, 2013 9:09pm 6 po qd x 3 days, 4 po qd x 3 days, 2 po qd x 3 days, 1 po qd x 3 days Start: 04-18-2013 End: 05-04-2013 take 40 mg by mouth once daily Prednisone Discontinued 40 MG PO DAILY April 18, 2013 1:00am May 04, 2013 4:26pm Comment on above: Take 1 tablet by richard th every other day. Take 2 tablets by mo [facility] once daily. Take 1.5 tablets by mouth every other day. PULSE OXIMETER [facility] (20 sources) Start: 07-17-2021 PULSE OXIMETER [facility] Indications: Chronic obstructive pulmonary disease, unspecified COPD type (HCC) , Moderate persistent asthma without complication (HCC) Use as directed to check oxygen saturation level 1 Each 07/17/2021 Active Start: 07-17-2021 PULSE OXIMETER [facility] Indications: Chronic obstructive pulmonary disease, unspecified COPD type (HCC) , Moderate persistent asthma without complication Use as directed to check oxygen saturation level 1 Each 07/17/2021 Active Start: 07-17-2021 PULSE OXIMETER [facility] Indications: Chronic obstructive pulmonary disease, unspecified COPD type (HCC) , Moderate persistent asthma without complication Use as directed to check oxygen saturation level 1 Each 0 07/17/2021 Active Comment on above: Use [facility] rOPINIRole 0.25 mg oral tablet (20 sources) Nonergot Dopamine Agonist Start: 09-23-2014 End: 10-18-2023 take 1 tablet by mouth at bedtime Ropinirole Hcl 0.25 MG tablet Active 0.25 mg PO AT BEDTIME September 23, 2014 12:00am restless legs Comment on above: Take 1 tablet by richard th daily at bedtime. sertraline 100 mg oral tablet (20 sources) Serotonin Reuptake Inhibitor Start: 07-08-2021 End: 06-17-2025 take 2 tablets by mouth once daily sertraline (ZOLOFT) 100 mg tablet Take 2 tablets by mouth once daily. 180 tablet 3 06/22/2024 06/17/2025 Active Start: 10-22-2013 take 1 tablet by richard th twice daily Sertraline 100 MG tablet Active 100 mg PO TWICE A DAY October 22, 2013 12:00am mood Start: 10-22-2013 take 1 tablet by richard th once daily Sertraline 100 MG tablet Active 100 mg PO DAILY October 22, 2013 12:00am Start: 04-18-2013 End: 05-02-2013 take 1 tablet by mouth once daily Sertraline 100 MG tablet Discontinued 100 mg PO DAILY April 18, 2013 1:00am May 02, 2013 9:09pm Comment on above: Take 2 tablets by mo [facility] once daily. tiotropium 0.018 mg inhalation powder (20 sources) Anticholinergic Start: 09-15-2024 tiotropium (Spiriva) [address] 1 capsule into inhaler and inhale. As instructed 09/15/2024 Active Start: 06-15-2023 End: 04-10-2024 take 1 capsule by inhalation once daily [...] 1 capsule as instructed once daily. Tiotropium [place] (Spiriva With Handihaler) 1 PUFF inhaler (6 sources) Start: 3 take 1 puff(s) by inhalation once daily Tiotropium [place] (Spiriva With Handihaler) 1 PUFF inhaler Active 1 NMA INHALATION DAILY April 18, 2013 1:00am wheezing Start: 04-18-2013 take 1 puff(s) by in halation once daily Tiotropium [place] (Spiriva With Handihaler) 1 PUFF inhaler Active 1 NMA INHALATION DAILY April 18, 2013 1:00am Start: 04-18-2013 take 1 puff(s) by in halation once daily Tiotropium [place] (Spiriva With Handihaler) 1 PUFF inhaler Active 1 PUFF INHALATION DAILY April 18, 2013 1:00am Completed/Discontinued Medications Medication Drug Class(es) Dates Sig (Normalized) Sig (Original) acetaminophen 325 mg / oxyCODONE hydrochloride 5 mg oral tablet (6 sources) Opioid Agonist Start: 10-22-2013 End: 10-26-2013 Oxycodone-Acetamino phen 1 TABLET tablet Discontinued 1 - 2 {tbl} PO EVERY 4 HOURS NEEDED as needed for Pain October 22, 2013 12:00am October 26, 2013 3:36pm Start: 10-22-2013 End: 10-26-2013 take 1 tablet by mouth every four hours as needed Oxycodone-Acetaminophen Discontinued 1 - 2 TABLET PO EVERY 4 HOURS NEEDED October 22, 2013 12:00am October 26, 2013 3:36pm ALPRAZolam 0.5 mg oral tablet (6 sources) Benzodiazepine Start: 05-04-2013 End: 07-20-2023 take 1 tablet by mouth three times daily as needed for anxiety Alprazolam 0.5 MG tablet Discontinued 0.5 mg PO 3 TIMES DAILY NEEDED as needed for Anxiety 30 0 May 04, 2013 1:00am July 20, 2023 4:35am apixaban 5 mg oral tablet (20 sources) Factor Xa Inhibitor Start: 10-09-2024 take 1 tablet by mouth twice daily apixaban (ELIQUIS) 5 mg tab(s) Take 5 mg by mouth two times a day. 10/09/2024 Active Start: 10-09-2024 End: 11-03-2024 take 1 drop(s) by mouth twice daily Apixaban (Eliquis) 5 mg tablet Active 5 mg PO TWICE A DAY 60 November 03, 2024 1:31pm blood thinne Discontinue if platelet count drops less than 50,000 or hemoglobin less than 8 g% cefdinir 300 mg oral capsule (2 sources) Cephalosporin Antibacterial Start: 10-10-2024 End: 12-26-2024 take 1 capsule by mouth twice daily Cefdinir 300 mg capsule Discontinued 300 mg PO TWICE A DAY 12 6 October 10, 2024 12:00am December 26, 2024 8:18pm cephalexin 500 mg oral capsule (6 sources) Cephalosporin Antibacterial Start: 10-22-2013 End: 10-26-2013 take 1 capsule by mouth every six hours Cephalexin 500 MG capsule Discontinued 500 mg PO EVERY 6 HOURS 40 0 October 22, 2013 12:00am October 26, 2013 3:35pm dextromethorphan hydrobromide 1 mg/ml / guaiFENesin 20 mg/ml / phenylephrine hydrochloride 0.5 mg/ml oral solution (20 sources) Uncompetitive C-vsjika-O-aspartat e Receptor Antagonist, Sigma-1 Agonist, alpha-1 Adrenergic Agonist Start: 02-08-2019 End: 02-19-2023 take 10 mL by mouth every eight hours as needed for chronic obstructive pulmonary disease and chronic obstructive pulmonary disease Phenylephrine-DM -guaiFENesin (MUCINEX FAST-MAX CONGEST-COUGH) 2.5-5-100 mg/5 mL liqd Indications: Chronic obstructive pulmonary disease, unspecified COPD type (HCC) Take 10 mL by mouth three times daily as needed. 118 mL 1 02/08/2019 02/19/2023 Discontinued Comment on above: Take 10 mL by mouth three times daily as needed. dronedarone 400 mg oral tablet (20 sources) Antiarrhythmic Start: 10-09-2024 End: 12-26-2024 take 1 tablet by mouth twice daily Dronedarone (Multaq) 400 mg tablet Discontinued 400 mg PO TWICE A DAY 180 November 03, 2024 1:30pm December 26, 2024 8:19pm guaiFENesin 600 mg oral tablet (6 sources) Start: 05-13-2016 End: 10-18-2023 take 1 tablet by mouth twice daily Guaifenesin (Mucus Relief Er) 600 MG tablet Discontinued 600 mg PO TWICE A DAY 0 May 13, 2016 1:00am October 18, 2023 1:05am congestion naproxen 500 mg oral tablet (6 sources) Nonsteroidal Anti-inflammatory Drug Start: 10-22-2013 End: 10-26-2013 take 1 tablet by mouth twice daily Naproxen 500 MG tablet Discontinued 500 mg PO TWICE A DAY October 22, 2013 12:00am October 26, 2013 3:35pm sulfamethoxazole 800 mg / trimethoprim 160 mg oral tablet (6 sources) Dihydrofolate Reductase Inhibitor Antibacterial, Sulfonamide Antimicrobial Start: 10-22-2013 End: 10-26-2013 Sulfamethoxazole -Trimethoprim 1 TABLET tablet Discontinued 1 {tbl} PO TWICE A DAY October 22, 2013 12:00am October 26, 2013 3:36pm Start: 10-22-2013 End: 10-26-2013 take 1 tablet by mouth twice daily Sulfamethoxazole-Trimethoprim Discontinu ed 1 TABLET PO TWICE A DAY October 22, 2013 12:00am October 26, 2013 3:36pm tiZANidine 4 mg oral tablet (7 sources) Central alpha-2 Adrenergic Agonist Start: 10-01-2023 End: 11-29-2023 take 1 tablet by mouth every eight hours as needed tiZANidine (ZANAFLEX) 4 mg tablet Take 1 tablet by mouth every 8 hours as needed (muscle spasms). 90 tablet 5 10/01/2023 11/29/2023 Discontinued (Course of therapy completed) 24 hr verapamil hydrochloride 180 mg extended release oral capsule (20 sources) Calcium Channel He Start: 10-09-2024 End: 12-26-2024 take 1 capsule by mouth twice daily Verapamil 180 mg capsule,ext rel. pellets 24 hr Discontinued 180 mg PO TWICE A DAY 180 2 November 03, 2024 1:29pm December 26, 2024 8:19pm Start: 12-31-2021 End: 10-09-2024 take 1 tablet by mouth once daily verapamil SR (Calan SR) 240 MG ER tablet Take 240 mg by mouth Nightly. 09/22/2024 Active Start: 01-03-2021 take 1 tablet by richard th once daily at bedtime verapamil SR (CALAN SR, ISOPTIN SR) 240 mg CR tablet Take 1 tablet by mouth daily at bedtime. 210 tablet 1 01/03/2021 Active Start: 04-18-2013 End: 10-09-2024 Verapamil 240 MG tablet Disc ontinued 360 mg PO DAILY April 18, 2013 1:00am October 09, 2024 3:46pm heart Start: 04-18-2013 take 360 mg by mouth once lilia y Verapamil Active 360 MG PO DAILY April 18, 2013 1:00am Comment on above: Take 1 tablet by richard th daily at bedtime. Problems Active Problems Problem Classification Problem Date Documented Date Episodic/Chronic Alcohol-related disorders (20 sources) History of alcohol abuse; Translations: [Alcohol abuse, in remission] Onset: 12-01-2024 Resolved: 08-11-2018 04-03-2015 Chronic Anxiety disorders (20 sources) Generalized anxiety disorder; Translations: [Generalized anxiety disorder] Onset: 01-27-2007 01-27-2007 Chronic Asthma (20 sources) Asthma; Translations: [Unspecified asthma, uncomplicated] Onset: 12-01-2024 02-20-2015 Chronic Biliary tract disease (20 sources) Calculus of bile duct with cholangitis; Translations: [Calculus of bile duct with acute cholangitis with obstruction] Onset: 06-30-2016 06-30-2016 Chronic Cancer of bronchus; lung (20 sources) Non-small cell lung cancer; Translations: [Malignant neoplasm of unspecified part of unspecified bronchus or lung] Onset: 04-13-2005 Resolved: 06-27-2016 04-03-2015 Chronic Cancer of bronchus; lung (1 source) History of malignant neoplasm of thoracic cavity structure; Translations: [Personal history of other malignant neoplasm of bronchus and lung] 11-23-2024 Episodic Cardiac dysrhythmias (12 sources) Atrial fibrillation; Translations: [Unspecified atrial fibrillation] Onset: 10-16-2024 10-08-2024 Chronic Cardiac dysrhythmias (7 sources) Tachycardia; Translations: [Tachycardia, unspecified] Onset: 10-16-2024 10-02-2024 Episodic Chronic obstructive pulmonary disease and bronchiectasis (20 sources) Chronic obstructive lung disease; Translations: [Chronic obstructive pulmonary disease, unspecified] Onset: 09-28-2005 06-27-2016 Chronic Chronic obstructive pulmonary disease and bronchiectasis (1 source) Bronchitis; Translations: [Bronchitis, not specified as acute or chronic] 10-22-2023 Episodic Deficiency and other anemia (2 sources) Anemia; Translations: [Anemia, unspecified] 12-26-2024 Episodic Diabetes mellitus without complication (2 sources) Increased glucose level; Translations: [Other abnormal glucose] Episodic Diseases of mouth; excluding dental (1 source) Oral infection; Translations: [Cellulitis and abscess of mouth] 03-22-2024 Episodic Esophageal disorders (20 sources) Gastroesophageal reflux disease; Translations: [Gastro-esophageal reflux disease without esophagitis] Onset: 03-22-2007 09-13-2007 Chronic Essential hypertension (20 sources) Benign essential hypertension; Translations: [Essential (primary) hypertension] Chronic Headache; including migraine (2 sources) Migraine; Translations: [Migraine, unspecified, not intractable, without status migrainosus] Onset: 12-01-2024 12-01-2024 Chronic Heart valve disorders (17 sources) Aortic valve stenosis; Translations: [Nonrheumatic aortic (valve) stenosis] Onset: 10-16-2024 10-03-2024 Chronic Hypertension with complications and secondary hypertension (2 sources) Benign hypertensive heart disease; Translations: [Hypertensive heart disease with heart failure] Onset: 12-01-2024 12-01-2024 Chronic Immunizations and screening for infectious disease (1 source) Needs influenza immunization; Translations: [Encounter for immunization] 02-19-2023 Episodic Mood disorders (20 sources) Dysthymia; Translations: [Dysthymic disorder] Onset: 12-01-2024 01-27-2007 Chronic Mycoses (4 sources) Candidiasis of mouth; Translations: [Candidal stomatitis] 06-15-2023 Episodic Nonspecific chest pain (1 source) Tight chest; Translations: [Other chest pain] 12-26-2024 Episodic Osteoarthritis (20 sources) Degenerative joint disease involving multiple joints; Translations: [Polyosteoarthritis, unspecified] Onset: 01-27-2007 01-27-2007 Chronic Other aftercare (1 source) Under care of palliative care physician; Translations: [Encounter for palliative care] 11-23-2024 Episodic Other aftercare (1 source) Long-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; Translations: [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] 11-23-2024 Episodic Other aftercare (1 source) 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; Translations: [terminal block assembler (current) use of anticoagulants] 12-26-2024 Episodic Other hereditary and degenerative nervous system conditions (2 sources) Restless legs; Translations: [Restless legs syndrome] Onset: 12-01-2024 12-01-2024 Chronic Other inflammatory condition of skin (2 sources) Itching ; Translations: [Pruritus, unspecified] 12-22-2024 Episodic Other lower respiratory disease (7 sources) Respiratory insufficiency; Translations: [Other abnormalities of breathing] 07-20-2023 Episodic Other lower respiratory disease (6 sources) Hypoxia; Translations: [Hypoxemia] 07-20-2023 Episodic Other lower respiratory disease (2 sources) Hypoxemia; Translations: [Hypoxemia] 07-20-2023 Episodic Other lower respiratory disease (2 sources) Other abnormalities of breathing; Translations: [Other respiratory abnormalities] 07-20-2023 Episodic Other nervous system disorders (1 source) Chronic pain; Translations: [Other chronic pain] 11-23-2024 Chronic Other nervous system disorders (1 source) Other chronic pain; Translations: [Chronic low back pain with sciatica, sciatica laterality unspecified, unspecified back pain laterality] Onset: 11-08-2024 Chronic Other screening for suspected conditions (not mental disorders or infectious disease) (20 sources) Abnormal cytological findings in specimens from other organs, systems and tissues; Translations: [Other abnormal Papanicolaou smear of cervix and cervical HPV] 01-27-2007 Episodic Other upper respiratory infections (8 sources) Viral upper respiratory tract infection; Translations: [Acute upper respiratory infection, unspecified] 07-20-2023 Episodic Residual codes; unclassified (6 sources) Tobacco use and exposure - finding; Translations: [Tobacco use] 04-03-2015 Episodic Residual codes; unclassified (1 source) Failed encounter; Translations: [No-show for appointment] 11-21-2024 Episodic Residual codes; unclassified (1 source) History of lung lobectomy; 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 [part of]] 11-23-2024 Episodic Respiratory failure; insufficiency; arrest (adult) (20 sources) Chronic hypoxemic respiratory failure; Translations: [Chronic respiratory failure with hypoxia] Onset: 02-20-2022 Chronic Substance-related disorders (20 sources) Tobacco user; Translations: [Nicotine dependence, unspecified, uncomplicated] Onset: 08-21-2005 01-27-2007 Chronic Unclassified (3 sources) Office is closed at time of discharge. Unclassified (3 sources) Evaluation for moderate to severe aortic stenosis Unclassified (1 source) NO SHOW 11-08-2024 Unclassified (1 source) No-show for appointment; Translations: [No-show for appointment] Onset: 11-21-2024 Unclassified (1 source) Hospital F/U Onset: 10-17-2024 Unclassified (2 sources) I35.0 - Nonrheumatic aortic (valve) stenosis Past or Other Problems Problem Classification Problem Date Documented Da te Episodic/Chronic Bacterial infection; unspecified site (20 sources) Bacteremia; Translations: [Bacteremia] Onset: 06-23-2016 Resolved: 03-22-2017 06-27-2016 Episodic Biliary tract disease (20 sources) Acute cholangitis due to bile duct calculus with obstruction; Translations: [Calculus of gallbladder without cholecystitis with obstruction] Onset: 06-21-2016 Resolved: 06-27-2016 06-27-2016 Episodic Other aftercare (20 sources) Patient encounter status; Translations: [Encounter for therapeutic drug level monitoring] Onset: 05-16-2021 05-16-2021 Episodic Other gastrointestinal disorders (20 sources) Constipation; Translations: [Constipation, unspecified] Onset: 06-21-2016 Resolved: 06-27-2016 06-27-2016 Episodic Other hematologic conditions (20 sources) Lesion of spleen; Translations: [Other diseases of spleen] Onset: 06-25-2016 06-27-2016 Episodic Spondylosis; intervertebral disc disorders; other back problems (20 sources) Chronic low back pain; Translations: [Lumbago with sciatica, unspecified side] Onset: 10-21-2010 Resolved: 07-15-2021 Episodic Unclassified (1 source) Patient encounter status 06-03-2024 Results Test Name Value Interpretation Reference Range Facility Absolute lymphocyte countOrd ered By: ED PROVIDER on 12-26-2024 Lymphocytes Auto (Unsp spec) [#/Vol] 1.08 10*3/uL 0.83-4.51 [facility] Absolute neutrophil countOrd ered By: ED PROVIDER on 12-26-2024 Neutrophils (Bld) [#/Vol] 8.0 10*3/uL High 2.0-7.7 [facility] Anion gap in Serum or Plasma Ordered By: Marcel Zarate on 12-26-2024 Anion gap [Moles/Vol] 8 mmol/L 5-15 [facility] Assessment of wrist artery p atency prior to arterial punctureOrdered By: Dionne Porter on 12-26-2024 Arterial patency Wrist artery --pre arterial puncture Positive [facility] Automated lymphocyte count a s percentage of total leukocytesOrdered By: ED PROVIDER on 12-26-2024 Lymphocytes/100 WBC Auto (Unsp spec) 11.3 % Low 19-41 [facility] BUN/creatinine ratioOrdered By: Marcel Zarate on 12-26-2024 Urea nitrogen/Creatinine [Mass ratio] 25.1 mg/mg High 10-20 [facility] Basophil percentageOrdered B y: ED PROVIDER on 12-26-2024 Basophils/100 WBC (Bld) 0.1 % 0-[address] [facility] Blood base excess determinat ionOrdered By: Dionne Porter on 12-26-2024 Base excess Calc (BldV) [Moles/Vol] mmol/L High -2-2 [facility] Blood bicarbonate measuremen tOrdered By: Dionne Porter on 12-26-2024 HCO3 (Bld) [Moles/Vol] 55.5 mmol/L High 22-[address] [facility] Carbon dioxide, total [Moles /volume] in Central venous bloodOrdered By: Marcel Zarate on 12-26-2024 CO2 [Moles/Vol] 41.6 mmol/L High 21.0-32.0 [facility] Chloride assayOrdered By: Seun Zarate on 12-26-2024 Chloride [Moles/Vol] 88 mmol/L Low 98-108 [facility] Eosinophil percentageOrdered By: ED PROVIDER on 12-26-2024 Eosinophils/100 WBC (Bld) 0.1 % 0-5 [facility] Erythrocyte distribution wid th ratioOrdered By: ED PROVIDER on 12-26-2024 Erythrocyte distribution width (RBC) [Ratio] 14.0 % 11.6-14.6 [facility] Erythrocyte distribution wid th standard deviationOrdered By: ED PROVIDER on 12-26-2024 Erythrocyte distribution width (RBC) [Ratio] 43.0 fl 35.1-43.9 [facility] Glomerular filtration rate ( GFR) estimation/1.73 sq m using serum, plasma, or whole bOrdered By: Marcel Zarate on 12-26-2024 GFR/1.73 sq M.predicted among non-blacks MDRD (S/P/Bld) [Vol rate/Area] 96 mL/min/{1.73_m2} >60 [facility] Comment on above: mL/min/1.73m2 CKD-EP I Creatinine Equation (2020) Hematocrit Auto (Bld) [Volum e fraction]Ordered By: ED PROVIDER on 12-26-2024 Hematocrit (Bld) [Volume fraction] 29.0 % Low 37-47 [facility] Hemoglobin measurementOrdere d By: ED PROVIDER on 12-26-2024 Hemoglobin (Bld) [Mass/Vol] 9.2 g/dL Low 12.0-15.0 [facility] Immature granulocytes/100 WB C Auto (Bld)Ordered By: ED PROVIDER on 12-26-2024 Immature granulocytes/100 WBC (Bld) 0.800 % 0.0-0.9 [facility] Comment on above: IG% - Immature Granu locytes (promyelocytes, myelocytes and metamyelocytes) > 1% indicates that a LEFT SHIFT is Present. MCV (mean corpuscular volume ) determinationOrdered By: ED PROVIDER on 12-26-2024 MCV (RBC) [Entitic vol] 84.5 fL 81-99 [facility] Mean corpuscular hemoglobin (MCH) determinationOrdered By: ED PROVIDER on 12-26-2024 MCH (RBC) [Entitic mass] 26.8 pg Low 27.0-32.0 [facility] Mean corpuscular hemoglobin concentration (MCHC) determinationOrdered By: ED PROVIDER on 12-26-2024 MCHC (RBC) [Mass/Vol] 31.7 g/dL Low 32-36 [facility] Mean platelet volume determi nationOrdered By: ED PROVIDER on 12-26-2024 Platelet mean volume (Bld) [Entitic vol] 9.3 fL 6.2-12.0 [facility] Measurement, pHOrdered By: A utumn White on 12-26-2024 pH (Unsp spec) 7.44 [pH] 7.35-7.45 [facility] Monocyte percentageOrdered B y: ED PROVIDER on 12-26-2024 Monocytes/100 WBC (Bld) 4.5 % 0-[address] [facility] Neutrophil percentageOrdered By: ED PROVIDER on 12-26-2024 Neutrophils/100 WBC (Bld) 83.2 % High 47-70 [facility] No Panel InformationOrdered By: Dionne Porter on 12-26-2024 Bld Gas Crit Called To/Read Back By Yes [facility] Blood Gas Notified Time 20:42:58 [facility] Blood Gas Notified Whom White [facility] Blood Gas Sample Site L Radial [facility] Blood Gas Specimen Type ART [facility] Blood Gas Vent Mode Not entered [facility] Oxygen Delivery Device Cannula [facility] Nucleated red blood cell per centageOrdered By: ED PROVIDER on 12-26-2024 Nucleated RBC/100 WBC (Bld) [Ratio] 0 % 0-5 [facility] Platelet countOrdered By: ED PROVIDER on 12-26-2024 Platelets (Bld) [#/Vol] 219 10*3/uL 150-450 [facility] Potassium measurement (mass/ volume)Ordered By: Marcel Zarate on 12-26-2024 Potassium (Unsp spec) [Mass/Vol] 4.0 mmol/L 3.3-5.1 [facility] RBC Auto (Bld) [#/Vol]Ordere d By: ED PROVIDER on 12-26-2024 RBC (Bld) [#/Vol] 3.43 10*6/uL Low 4.2-5.4 [facility] Serum creatinine measurement (mass/volume)Ordered By: Marcel Zarate on 12-26-2024 Creatinine [Mass/Vol] 0.64 mg/dL Low 0.70-1.20 [facility] Serum glucose measurement (m ass/volume)Ordered By: Marcel Zarate on 12-26-2024 Glucose [Mass/Vol] 112 mg/dL High 70-99 [facility] Serum or plasma calcium kadi urement (mass/volume)Ordered By: Marcel Zarate on 12-26-2024 Calcium [Mass/Vol] 8.9 mg/dL 7.6-11.0 [facility] Serum or plasma urea nitroge n measurement (mass/volume)Ordered By: Marcel Zarate on 12-26-2024 Urea nitrogen [Mass/Vol] 16 mg/dL 4-19 [facility] Sodium levelOrdered By: Haider Zarate on 12-26-2024 Sodium [Moles/Vol] 137 mmol/L 133-145 [facility] Troponin T.cardiac [Mass/vol ume] in Serum or Plasma by High sensitivity methodOrdered By: Marcel Zarate on 12-26-2024 Troponin T.cardiac High sensitivity method [Mass/Vol] 25 ng/L High <14 [facility] Troponin T.cardiac High sensitivity method [Mass/Vol] 25 ng/L High <14 [facility] Comment on above: [place]: [place] [id number] White blood cell (WBC) count Ordered By: ED PROVIDER on 12-26-2024 WBC (Bld) [#/Vol] 9.6 10*3/uL 4.4-11.0 [facility] CNPNon 12-22-2024 CNPN Telephone (FAMPWS) DENIA GONZALEZ ([id number]) 1955 F Date Time Provider Department 12/22/24 [facility] During your visit today, we recorded the following information about you: Judy Bliss RN 12/22/2024 8:58 AM Signed Patient's Daughter In Law Symmatee calls and states that patient has been itching herself a lot. Symontee reports that she is itching herself so much that she is breaking her skin. Patient asking if provider can call in something for the itching? Please review and advise, KAREN Werner Mark D, MD 12/22/2024 9:22 AM Signed OK for Atarax as ordered MD Izaiah Chopra Stephanie, RN 12/22/2024 9:40 AM Signed Daughter in Law Giovanniee called and notified that prescription was sent to pharmacy. Voices understanding. Judy Bliss RN Allergies As of Date: 12/22/2024 (No Known Allergies) Date Reviewed: 11/22/2024 Reviewed by: Gregor Fernandez APRN.GRAPHIC DESIGN SPECIALIST - Fully Assessed Reason for Visit: Patient Update [1234] Primary Visit Diagnosis:Itching [L29.9] Order(s):hydrOXYzine HCl (ATARAX) 25 mg tabletTake 1 tablet by mouth three times a day as needed (for itching).Disp: 30 tabletRfl: 2 Prescriptions as of 12/22/2024 - hydrOXYzine HCl (ATARAX) 25 mg tablet Take 1 tablet by mouth three times a day as needed (for itching). - HYDROcodone-acetamin ophen (NORCO) 5-325 mg per tablet Take 1 tablet by mouth two times a day as needed for pain for up to 30 days. - busPIRone (BUSPAR) 10 mg tablet Take 2 tablets by mouth two times a day. - cyclobenzaprine (FLEXERIL) 10 mg tablet Take 1 tablet by mouth two times a day as needed for muscle spasm. - predniSONE (DELTASONE) 10 mg tablet Take 1.5 pills every day or every other day as needed - nicotine (NICODERM) 14 mg/24 hr apply one patch transdermally as directed every 24 hours - furosemide (LASIX) 20 mg tablet Take 1 tablet by mouth once daily. - verapamil ER 180 mg 24 hr capsule Take 1 capsule by mouth two times a day. - apixaban (ELIQUIS) 5 mg tab(s) Take 5 mg by mouth two times a day. - carvedilol (COREG) 6.25 mg tablet Take 6.25 mg by mouth two times a day with meals. - dronedarone (MULTAQ) 400 mg tab Take 400 mg by mouth two times a day with meals. - levoFLOXacin (LEVAQUIN) 500 mg tablet Take 500 mg by mouth once daily. - ipratropium-albutero l (DUONEB) 0.5 mg-3 mg(2.5 mg base)/3 mL nebu inhale 1 ampule via nebulizer every 4 hours if needed for wheezing. Use over 5 to 15 minutes - nystatin (MYCOSTATIN) 100,000 unit/mL suspension Take 5 mL by mouth four times daily. 1tsp swish in mouth for several minutes, then swallow (or expectorate) 4 times daily until gone. - sertraline (ZOLOFT) 100 mg tablet Take 2 tablets by mouth once daily. - Cholecalciferol, Vitamin D3, 50 mcg (2,000 unit) cap Take 1 capsule by mouth once daily. - omeprazole (PRILOSEC) 20 mg capsule Take 1 capsule by mouth once daily. ON AN EMPTY STOMACH - montelukast (SINGULAIR) 10 mg tablet Take 1 tablet by mouth once daily. - tiotropium (SPIRIVA) 18 mcg inhalation capsule Inhale 1 capsule as instructed once daily. - albuterol HFA (VENTOLIN HFA) 90 mcg/actuation inhaler Inhale 2 Puffs as instructed every 4 hours as needed. - fluticasone-salmeter ol (ADVAIR DISKUS) 500-50 mcg/dose [...] directed. Dx: COPD J44.9 - Nebulizer Accessories [facility] [place] and supplies as needed - PULSE OXIMETER [facility] Use as directed to check oxygen saturation level - ammonium lactate (AMLACTIN) 12 % lotion Apply 1 application to affected area as needed for Dry Skin. - losartan (COZAAR) 50 mg tablet Take 0.5 tablets by mouth once daily. - OXYGEN, HOME THERAPY, 2.5 L/min by Nasal Cannula route continuous. Use as directred - Disposable Gloves (DISPOSABLE LATEX-FREE GLOVES) [facility] Box once every month. ICD 10: [...] be starting Problem List As Of Date 12/22/2024 Noted Resolved Other and unspecified alcohol dependence, unspe* 08/11/2018 LUNG CANCER [C34.10] 04/13/2005 06/27/2016 MALIG NEOPLASM BRONCH/LUNG NOS [C34. (more content not included)... Normal [facility] CBC W Auto Differential pane l (Bld)on 12-15-2024 Basophils (Bld) [#/Vol] 0 10*3/uL 0.0 - 0.2 10*3/uL [employer] Basophils/100 WBC (Bld) 0.1 % 0.0 - 2.0 % [employer] Eosinophils (Bld) [#/Vol] 0 10*3/uL 0.0 - 0.5 10*3/uL [employer] Eosinophils/100 WBC (Bld) 0.1 % 0.0 - 6.0 % [employer] Erythrocyte distribution width (RBC) [Ratio] 13.6 % 11.5 - 15.0 % [employer] Hematocrit (Bld) [Volume fraction] 33.3 % Low 35.0 - 47.0 % [employer] Hemoglobin (Bld) [Mass/Vol] 10.5 g/dL Low 11.7 - 16.0 g/dL [employer] Immature granulocytes (Bld) [#/Vol] 0.1 10*3/uL High NINF - 0.1 10*3/uL [employer] Immature granulocytes/100 WBC (Bld) 0.8 % 0.0 - 2.0 % [employer] [facility] Interpretation and review of laboratory results Abnormal [employer] Lymphocytes (Bld) [#/Vol] 0.8 10*3/uL Low 1.0 - 4.3 10*3/uL [employer] [facility] Lymphocytes/100 WBC (Bld) 9.8 % Low 15.0 - 45.0 % [employer] MCH (RBC) [Entitic mass] 26.3 pg 26. 0 - 34.0 pg [facility] MCHC (RBC) [Mass/Vol] 31.5 % 30.5 - 36.0 % [facility] MCV (RBC) [Entitic vol] 83.5 fL 77.0 - 99.0 fL [facility] Monocytes (Bld) [#/Vol] 0.2 10*3/uL 0.0 - 0.9 10*3/uL [facility] Monocytes/100 WBC (Bld) 1.9 % Low 5.0 - 13.0 % [facility] Neutrophils (Bld) [#/Vol] 7.3 10*3/uL 1.8 - 7.5 10*3/uL [facility] Neutrophils/100 WBC (Bld) 87.3 % High 38.0 - 82.0 % [facility] Nucleated RBC/100 WBC (Bld) [Ratio] 0 % [facility] Platelet mean volume (Bld) [Entitic vol] 10.2 fL 9.0 - 12.7 fL [facility] Platelets (Bld) [#/Vol] 239 10*3/uL 140 - 440 10*3/uL [facility] RBC (Bld) [#/Vol] 3.99 10*6/uL 3.80 - 5.2 0 10*6/uL [facility] WBC (Bld) [#/Vol] 8.3 10*3/uL 3.6 - 10.7 10*3/uL [facility] CBC WITH AUTO DIFFERENTIALon 12-15-2024 Basophils (Bld) [#/Vol] 0.0 10*3/uL Normal 0.0-0.2 [facility] Comment on above: Performed By: #### L [id number] #### Education Department Chair: EDDA MCKINLEY ([phone]) [facility] [address] [place] [address] Basophils/100 WBC (Bld) 0.1 % Normal 0.0-2.0 [facility] Comment on above: Performed By: #### L [id number] #### Education Department Chair: EDDA MCKINLEY ([phone]) [facility] ([facility]) [address] [place] [address] Eosinophils (Bld) [#/Vol] 0.0 10*3/uL Normal 0.0-0.5 [facility] Comment on above: Performed By: #### L [id number] #### Education Department Chair: EDDA MCKINLEY ([phone]) [facility]) [address] [place] [address] Eosinophils/100 WBC (Bld) 0.1 % Normal 0.0-6.0 [facility] Comment on above: Performed By: #### L [id number] #### Education Department Chair: EDDA MCKINLEY ([phone]) [facility]) [address] [place] [address] Erythrocyte distribution width (RBC) [Ratio] 13.6 % Normal 11.5-15.0 [facility] Comment on above: Performed By: #### L [id number] #### Education Department Chair: EDDA MCKINLEY ([phone]) [facility]) [address] [place] [address] Hematocrit (Bld) [Volume fraction] 33.3 % Low 35.0-47.0 [facility] Comment on above: Performed By: #### L [id number] #### Education Department Chair: EDDA MCKINLEY ([id number]) [facility]) [address] [place] [address] Hemoglobin (Bld) [Mass/Vol] 10.5 g/dL Low 11.7-16.0 [facility] Comment on above: Performed By: #### L [id number] #### Education Department Chair: EDDA MCKINLEY ([phone]) [facility]) [address] [place] [address] IMMATURE GRANS % 0.8 % Normal 0.0-2.[address] [facility] Comment on above: Performed By: #### L [id number] #### Education Department Chair: EDDA MCKINLEY ([phone]) [address] IMMATURE GRANS ABSOLUTE 0.1 10*3/uL High <0.1 [facility] Comment on above: Performed By: #### L [id number] #### Education Department Chair: EDDA MCKINLEY ([phone]) [facility]) [address] [place] [address] Lymphocytes (Bld) [#/Vol] 0.8 10*3/uL Low 1.0-4.3 [facility] Comment on above: Performed By: #### L [id number] #### Education Department Chair: EDDA MCKINLEY ([phone]) [facility]) [address] [place] [address] Lymphocytes/100 WBC (Bld) 9.8 % Low 15.0-45.0 [facility] Comment on above: Performed By: #### L [id number] #### Education Department Chair: EDDA MCKINLEY ([phone]) [facility]) [address] [place] [address] MCH (RBC) [Entitic mass] 26.3 pg Normal 26.0-34.0 [facility] Comment on above: Performed By: #### L [id number] #### Education Department Chair: EDDA MCKINLEY ([phone]) [facility]) [address] [place] [address] MCHC 31.5 % Normal 30.5-36.0 [facility] Comment on above: Performed By: #### L [id number] #### Education Department Chair: EDDA MCKINLEY ([phone]) [facility]) [address] [place] [address] MCV (RBC) [Entitic vol] 83.5 fL Normal 77.0-99.0 [facility] Comment on above: Performed By: #### L [id number] #### Education Department Chair: EDDA MCKINLEY ([phone]) [facility]) [address] [place] [address] Monocytes (Bld) [#/Vol] 0.2 10*3/uL Normal 0.0-0.9 [facility] Comment on above: Performed By: #### L [id number] #### Education Department Chair: EDDA MCKINLEY ([phone]) [facility] [address] [place] [address] Monocytes/100 WBC (Bld) 1.9 % Low 5.0-13.0 [facility] Comment on above: Performed By: #### L [id number] #### Education Department Chair: EDDA MCKINLEY ([phone]) [facility] ([facility]) [address] [place] [address] NEUTROPHILS ABSOLUTE 7.3 10*3/uL Normal 1.8-7.5 [facility] Comment on above: Performed By: #### L [id number] #### Education Department Chair: EDDA MCKINLEY ([phone]) [facility] ([facility]) [address] [place] [address] Neutrophils/100 WBC (Bld) 87.3 % High 38.0-82.0 [facility] Comment on above: Performed By: #### L [id number] #### Education Department Chair: EDDA MCKINLEY ([phone]) [facility]) [address] [place] [address] NRBC 0.0 /100 WBCs Normal 0.0-2.0 [facility] Comment on above: Performed By: #### L [id number] #### Education Department Chair: EDDA MCKINLEY ([id number]) [facility] ([facility]) [address] [place] [address] Platelet mean volume (Bld) [Entitic vol] 10.2 fL Normal 9.0-12.7 [facility] Comment on above: Performed By: #### L [id number] #### Education Department Chair: EDDA MCKINLEY ([phone]) [facility] ([facility]) [address] [place] [address] [place] Platelets (Bld) [#/Vol] 239 10*3/uL Normal 140-440 [facility] Comment on above: Performed By: #### L [id number] #### Education Department Chair: EDDA MCKINLEY ([id number]) [facility] ([facility]) [address] [place] [address] [place] RBC (Bld) [#/Vol] 3.99 10*6/uL Normal 3.80-5.20 [facility] Comment on above: Performed By: #### L [id number] #### Education Department Chair: EDDA MCKINLEY ([phone]) [facility] ([facility]) [address] [place] [address] WBC (Bld) [#/Vol] 8.3 10*3/uL Normal 3.6-10.7 [facility] Comment on above: Performed By: #### L [id number] #### Education Department Chair: EDDA MCKINLEY ([phone]) [facility] ([facility]) [address] [place] [address] COMPREHENSIVE METABOLIC PANE Eddie 12-15-2024 Albumin [Mass/Vol] 3.7 g/dL Normal 3.4-4.8 [facility] Comment on above: Performed By: #### L [id number] #### Education Department Chair: EDDA MCKINLEY ([id number]) [facility] ([facility]) [address] [place] [address] ALP [Catalytic activity/Vol] 49 U/L Normal 40-150 [facility] Comment on above: Performed By: #### L [id number] #### Education Department Chair: EDDA MCKINLEY ([phone]) [facility] ([facility]) [address] [place] [address] ALT [Catalytic activity/Vol] 16 U/L Normal <30 [facility] Comment on above: Performed By: #### L [id number] #### Education Department Chair: EDDA MCKINLEY ([id number]) [facility] ([facility]) [address] [place] [address] Anion gap [Moles/Vol] 7 mmol/L Normal 3-13 [facility] Comment on above: Performed By: #### L [id number] #### Education Department Chair: EDDA MCKINLEY ([phone]) [facility]) [address] [place] [address] AST [Catalytic activity/Vol] 18 U/L Normal <34 [facility] Comment on above: Performed By: #### L [id number] #### Education Department Chair: EDDA [id number]) [facility] ([facility]) [address] [place] [address] Bilirubin [Mass/Vol] 0.4 mg/dL Normal <1.2 [facility] Comment on above: Performed By: #### L [id number] #### Education Department Chair: EDDA MCKINLEY ([phone]) [facility] ([facility]) [address] [place] [address] Calcium [Mass/Vol] 8.6 mg/dL Low 8.8-10.0 [facility] Comment on above: Performed By: #### L [id number] #### Education Department Chair: EDDA MCKINLEY ([phone]) [facility]) [address] [place] [address] Chloride [Moles/Vol] 88 mmol/L Low 98-107 [facility] Comment on above: Performed By: #### L [id number] #### Education Department Chair: EDDA MCKINLEY ([phone]) [facility] ([facility]) [address] [place] [address] CO2 [Moles/Vol] 40 mmol/L High 23-[address] [facility] Comment on above: Performed By: #### L [id number] #### Education Department Chair: EDDA MCKINLEY ([id number]) [facility] ([facility]) [address] [place] [address] Creatinine [Mass/Vol] 0.72 mg/dL Normal 0.57-1.[address] [facility] Comment on above: Performed By: #### L [id number] #### Education Department Chair: EDDA MCKINLEY ([phone]) [facility] ([facility]) [address] [place] [address] GLOMERULAR FILTRATION RATE ML/MIN/1.73 SQ M.PREDICTED >90.0 Normal >60.0 [facility] Comment on above: Result Comment: Calc ulation based on the Chronic Kidney Disease Epidemiology Collaboration (CKD-EPI) equation refit without adjustment for race Performed By: #### L [id number] #### Education Department Chair: EDDA MCKINLEY ([phone]) [facility] ([facility]) [address] [place] [address] Glucose [Mass/Vol] 114 mg/dL Normal 82-115 [facility] Comment on above: Performed By: #### L [id number] #### Education Department Chair: EDDA MCKINLEY ([id number]) [facility] ([facility]) [address] [place] [address] Potassium [Moles/Vol] 4.3 mmol/L Normal 3.5-5.[address] [facility] Comment on above: Result Comment: [facility] potassium values may be up to 0.5 mmol/L lower than serum values. Performed By: #### L [id number] #### Education Department Chair: EDDA MCKINLEY ([phone]) [facility] ([facility]) [address] [place] [address] Protein [Mass/Vol] 6.5 g/dL Normal 6.4-8.3 [facility] Comment on above: Performed By: #### L [id number] #### Education Department Chair: EDDA MCKINLEY ([phone]) [facility] ([facility]) [address] [place] [address] Sodium [Moles/Vol] 135 mmol/L Low 136-145 [facility] Comment on above: Performed By: #### L [id number] #### Education Department Chair: EDDA MCKINLEY ([phone]) [facility]) [address] [place] [address] Urea nitrogen [Mass/Vol] 19 mg/dL Normal 9-23 [facility] Comment on above: Performed By: #### L [id number] #### Education Department Chair: EDDA MCKINLEY ([id number]) [facility] ([facility]) [address] [place] [address] Comprehensive metabolic 1998 panelon 12-15-2024 Albumin [Mass/Vol] 3.7 g/dL 3.4 - 4.8 g/dL [facility] ALP [Catalytic activity/Vol] 49 U/L 40 - 150 U/L [facility] ALT [Catalytic activity/Vol] 16 U/L NINF - 30 U/L [facility] Anion gap [Moles/Vol] 7 mmol/L 3 - 13 mmol/L [facility] AST [Catalytic activity/Vol] 18 U/L NINF - 34 U/L [facility] Bilirubin [Mass/Vol] 0.4 mg/dL NINF - 1.2 mg/dL [facility] Calcium [Mass/Vol] 8.6 mg/dL Low 8.8 - 10. 0 mg/dL [facility] Chloride [Moles/Vol] 88 mmol/L Low 98 - 10 7 mmol/L [facility] CO2 [Moles/Vol] 40 mmol/L High 23 - 31 mmol/L [facility] Creatinine [Mass/Vol] 0.72 mg/dL 0.57 - 1.11 mg/dL [facility] GFR/1.73 sq M.predicted (S/P/Bld) [Vol rate/Area] - PINF [facility] Comment on above: Calculation based on the Chronic Kidney Disease Epidemiology Collaboration (CKD-EPI) equation refit without adjustment for race Glucose [Mass/Vol] 114 mg/dL 82 - 115 mg/dL [facility] Interpretation and review of laboratory results Abnormal [facility] Potassium [Moles/Vol] 4.3 mmol/L 3.5 - 5.1 mmol/L [facility] Comment on above: Plasma potassium abdulkadir ues may be up to 0.5 mmol/L lower than serum values. Protein [Mass/Vol] 6.5 g/dL 6.4 - 8.3 g/dL [facility] Sodium [Moles/Vol] 135 mmol/L Low 136 - 145 mmol/L [facility] Urea nitrogen [Mass/Vol] 19 mg/dL 9 - 23 mg/d L [facility] Office Visiton 12-15-2024 Follow-up visit [id number] Denia Gonzalez 1955 Date Provider Department Center 12/15/2024 [id number] [facility]T [facility] [address] Family History Problem Relation Age of Onset Hypertension Mother Throat cancer Mother Hypertension Father Stomach cancer Father Family Status - Relation Status Age at Mother Father Level of Service:98222 ID OFFICE/OP CONSLTJ NEW/EST PT HIGH MDM 55 MINUTES Reason for Visit and Comments: Cardiac Valve Problem [1334] New Patient [542] - Heart Valve Clinic Normal [facility] Follow-up visit [id number] Denia Gonzalez 1955 F Date Provider Department Center 12/15/2024 [id number], ZARIA [facility] [address] Family History Problem Relation Age of Onset Hypertension Mother Throat cancer Mother Hypertension Father Stomach cancer Father Family Status - Relation Status Age at Mother Father Level of Service:27963 ID OFFICE/OUTPATIENT NEW HIGH MDM 60 MINUTES Reason for Visit and Comments: Cardiac Valve Problem [1334] New Patient [542] - Heart Valve Clinic Normal [facility] Progress Noteon 12-15-2024 Progress Note [facility]: Cardiothoracic Surgery Multidisciplinary Heart Valve Clinic Date: 12/14/24 Patient:Denia Gonzalez 1955 69 y.o. female [id number] Subjective: HPI: Denia Gonzalez 69 y.o. referred by SADIQ Aguilar is being evaluated for aortic valve stenosis. Echocardiogram completed on 10/02/24 showed severe aortic valve stenosis with peak/mean gradients 75/50 mm Hg, SASHA 0.85 cm^2. Per note, patient with past medical history significant for COPD, chronic hypoxic respiratory failure, on home O2, HTN, smoker. Patient was admitted to [facility] 09/29/24 for respiratory failure and newly diagnosed A fib with RVR. During admission an echocardiogram was performed which demonstrated severe concentric LVH with an estimated EF of 70%, nimisha I diastolic dysfunction, severely calcified aortic valve with severe aortic valve stenosis with peak/mean gradients 75/50 mm Hg, SASHA 0.85 cm^2. Pt was started on Multaq, carvedilol and verapamil in addition to Eliquis. She has tremendous anxiety, but SOB has been relatively stable and she has remained on 3LNC for quite some time without having to escalate. [Medical History] [Medical History] Past Medical History Diagnosis Date A-fib (CMS/HCC) (HCC) Anxiety Aortic stenosis Asthma Chronic respiratory failure (HCC) COPD (chronic obstructive pulmonary disease) (HCC) Depressed History of ETOH abuse HTN (hypertension) Migraines RLS (restless legs syndrome) Blood thinner - Eliquis Transthoracic Echocardiogram 10/02/24 Left Ventricle Normal LV size. Severe concentric left ventricular hypertrophy. The LV systolic function is normal. EF is 70 %. Stage 1 diastolic dysfunction. Right Ventricle Normal right ventricle. Atria The left and right atria are normal. Mitral Valve Trivial mitral valve insufficiency. Tricuspid Valve Mild tricuspid valve insufficiency. Unable to estimate RV systolic pressure due to insufficient tricuspid regurgitant envelope. Aortic Valve Severely calcified aortic valve. Severe aortic valve stenosis. Mean peak gradient 50 mmHg. Aortic valve area 0.85 cm??. Trivial aortic valve regurgitation. Pulmonic Valve The pulmonic valve is not well visualized. Great Vessels The aortic root is not well visualized. Pericardium/Pleural No pericardial effusion. Review of Systems Constitutional: Negative for activity change, chills, diaphoresis, fatigue and fever. HENT: Negative for nosebleeds and trouble swallowing. Eyes: Negative for discharge and visual disturbance. Respiratory: Positive for cough, chest tightness (during anxiety attacks) and shortness of breath (on exertion; on continuous home oxygen 3L). Negative for apnea and wheezing. Cardiovascular: Negative for chest pain, palpitations and leg swelling. Gastrointestinal: Negative for abdominal distention, abdominal pain, blood in stool, diarrhea, nausea and vomiting. Endocrine: Negative for cold intolerance and heat intolerance. Genitourinary: Negative for hematuria. Musculoskeletal: Positive for gait problem (in wheelchair during visit; minimal activity). Negative for myalgias. Skin: Negative for color change and rash. Neurological: Negative for dizziness, seizures, syncope, facial asymmetry, speech difficulty, weakness, light-headedness, numbness and headaches. Hematological: Does not bruise/bleed easily. Psychiatric/Behavior al: Negative for dysphoric mood. Allergies: Patient has no known allergies. Past Medical History: has a past medical history of A-fib (CMS/HCC) ([facility]), Anxiety, Aortic stenosis, Asthma, Chronic respiratory failure ([facility]), COPD (chronic obstructive pulmonary disease) ([facility]), Depressed, History of ETOH abuse, HTN (hypertension), Migraines, and RLS (restless legs syndrome). Past Surgical History: has a past surgical history that includes Exploratory laparotomy; Lung surgery; and Cholecystectomy. Social History: reports that she has quit smoking. Her smoking use included cigarettes. She does not have any smokeless tobacco history on file. She reports that she does not currently use alcohol. She reports that she does not use drugs. Family History: family history includes Hypertension in her father and mother; Stomach cancer in her father; Throat cancer in her mother. Medications: Prior to Admission medications Medication Sig Start Date End Date Taking? Authorizing Provider albuterol 108 (90 Base) MCG/ACT inhaler Inhale 2 puffs every 4 hours. 5/30/25 Historical Provider, busPIRone (Buspar) 10 MG tablet Take 10 mg by mouth 2 times daily. 11/06/24 Historical Provider, carvedilol (Coreg) 6.25 MG tablet Take 6.25 mg by mouth 2 times daily (with meals). 11/06/24 Historical Provider, cholecalciferol (Vitamin D-3) 50 MCG (1999) capsule Take by mouth daily. 09/22/24 Historical Provider, cyclobenzaprine (Flexeril) 10 MG tablet Take 1 tablet by mouth two times a day as needed for mu (more content not included)... Normal [facility] Progress Note [facility] [address] [facility] [id number] Dept: [phone] Dept Visit type: New : 1955 Reason for Visit: New patient, Heart Valve Clinic Assessment and Plan 1. 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 Nonrheumatic aortic valve stenosis This is a very pleasant 69 y.o. female with severe and symptomatic aortic stenosis. she is in need of aortic valve replacement. Will get a cath to evaluate coronary anatomy, and Will get a CTA for anatomic planning. If favorable anatomy for transfemoral TAVR, will likely proceed with TAVR. She would be a high risk surgical candidate with her degree of COPD. This decision was made after multidisciplinary discussion, using a shared decision making strategy. CT surgery also saw patient to aide in discussion. It was a pleasure seeing your patient in the office today. Please do not hesitate to call me with any questions. Follow up for Recheck after cath and CTA. Subjective HPI Denia Gonzalez is a very pleasant 69 y.o. female who is here for evaluation of her aortic valve disease. her symptoms include progressive dyspnea on exertion and fatigue. She also has severe and O2 dependent COPD. She also has significant anxiety and rarely leaves her house. her most recent echo shows severe aortic stenosis with mean gradient 50mmHg. Review of Systems Constitutional: Negative for activity change, chills, diaphoresis, fatigue and fever. HENT: Negative for nosebleeds and trouble swallowing. Eyes: Negative for discharge and visual disturbance. Respiratory: Positive for cough, chest tightness (during anxiety attacks) and shortness of breath (on continuous home oxygen 3L). Negative for apnea and wheezing. Cardiovascular: Negative for chest pain, palpitations and leg swelling. Gastrointestinal: Negative for abdominal distention, abdominal pain, blood in stool, diarrhea, nausea and vomiting. Endocrine: Negative for cold intolerance and heat intolerance. Genitourinary: Negative for hematuria. Musculoskeletal: Positive for gait problem (in wheelchair during visit; minimal activity). Negative for myalgias. Skin: Negative for color change and rash. Neurological: Negative for dizziness, seizures, syncope, facial asymmetry, speech difficulty, weakness, light-headedness, numbness and headaches. Hematological: Does not bruise/bleed easily. Psychiatric/Behavior al: Negative for dysphoric mood. Allergies[1] Current Medications[2] Medical History[3] Social History Tobacco Use Smoking status: Former Types: Cigarettes Smokeless tobacco: Not on file Substance Use Topics Alcohol use: Not Currently Surgical History[4] Family History[5] Objective Vitals: 12/15/24 1436 12/15/24 1504 BP: (S) (!) 164/90 130/80 BP Location: Left arm Left arm Patient Position: Sitting Sitting BP Cuff Size: Adult Adult Pulse: 99 SpO2: 93% Weight: 155 lb (70.3 kg) Height: 5' 4 (1.626 m) Physical Exam Constitutional: General: She is not in acute distress. Appearance: She is not diaphoretic. HENT: Head: Normocephalic. Nose: Nose normal. Mouth/Throat: Mouth: Mucous membranes are moist. Pharynx: No oropharyngeal exudate. Eyes: General: No scleral icterus. Right eye: No discharge. Left eye: No discharge. Neck: Thyroid: No thyromegaly. Vascular: No carotid bruit or JVD. Cardiovascular: Rate and Rhythm: Normal rate and regular rhythm. Pulses: Normal pulses. Heart sounds: Murmur heard. Systolic murmur is present with a grade of 3/6. Pulmonary: Effort: Pulmonary effort is normal. Breath sounds: Normal breath sounds. Abdominal: General: Bowel sounds are normal. There is no distension. Palpations: There is no hepatomegaly. Tenderness: There is no abdominal tenderness. Musculoskeletal: General: Normal range of motion. Cervical back: Normal range of motion. Right lower leg: No edema. Left lower leg: No edema. Skin: General: Skin is warm and dry. Neurological: Mental Status: She is oriented to person, place, and time. Psychiatric: Mood and Affect: Mood normal. Behavior: Behavior normal. Data Reviewed and Summarized No results found for: EFBP, PLVEF, LVEFPHYS, LVEF2D, EF Review of tests/labs done/ordered within my specialty: EKG in office: Review of tests/labs done/ordered outside my specialty: Independent interpretation of tests: I personally reviewed the images from Denia Gonzalez's most recent TTE in the office today, to help with medical decision making. My interpretation is noted in the HPI section of this note. Zaria Shea MD NYHA Class (1-4): III STS score: 4.8% 5 meter gait speed in seconds: unable to walk, in wheelchair Ao valve disease etiology (degenerative, rheumatic, (more content not included)... Normal [facility] Progress Noteon 12-14-2024 Progress Note Denia Gonzalez 69 y.o. referred by SADIQ Aguilar is being evaluated for aortic valve stenosis. Echocardiogram completed on 10/02/24 showed severe aortic valve stenosis with peak/mean gradients 75/50 mm Hg, SASHA 0.85 cm^2. Per note, patient with past medical history significant for COPD, chronic hypoxic respiratory failure, on home O2, HTN, smoker. Patient was admitted to [facility] 09/29/24 for respiratory failure and newly diagnosed A fib with RVR. During admission an echocardiogram was performed which demonstrated severe concentric LVH with an estimated EF of 70%, nimisha I diastolic dysfunction, severely calcified aortic valve with severe aortic valve stenosis with peak/mean gradients 75/50 mm Hg, SASHA 0.85 cm^2. Pt was started on Multaq, carvedilol and verapamil in addition to Eliquis. Medical History[1] Blood thinner - Eliquis Transthoracic Echocardiogram 10/02/24 Left Ventricle Normal LV size. Severe concentric left ventricular hypertrophy. The LV systolic function is normal. EF is 70 %. Stage 1 diastolic dysfunction. Right Ventricle Normal right ventricle. Atria The left and right atria are normal. Mitral Valve Trivial mitral valve insufficiency. Tricuspid Valve Mild tricuspid valve insufficiency. Unable to estimate RV systolic pressure due to insufficient tricuspid regurgitant envelope. Aortic Valve Severely calcified aortic valve. Severe aortic valve stenosis. Mean peak gradient 50 mmHg. Aortic valve area 0.85 cm??. Trivial aortic valve regurgitation. Pulmonic Valve The pulmonic valve is not well visualized. Great Vessels The aortic root is not well visualized. Pericardium/Pleural No pericardial effusion. [1] Past Medical History: Diagnosis Date A-fib (CMS/HCC) (HCC) Anxiety Aortic stenosis Asthma Chronic respiratory failure (HCC) COPD (chronic obstructive pulmonary disease) (HCC) Depressed History of ETOH abuse HTN (hypertension) Migraines RLS (restless legs syndrome) [facility] 12-08-2024 CNPN Telephone (INTMWS) DENIA GONZALEZ ([id number]) 1955 F Date Time Provider Department 12/08/24 YOSEPH FALL INTMWS During your visit today, we recorded the following information about you: Ban Villafana LPN 12/08/2024 10:31 AM Signed Electronic PA rec'd and completed for cyclobenzaprine (FLEXERIL) 10 mg tablet Ban Villafana LPN 12/08/2024 10:43 AM Signed prior authorization approved Payer: [employer] [phone] Note from payer: CaseId:[id number];Sta tus:Approved;Review Type:Prior Auth;Coverage Start Date:11/08/2024;Elliott rage End Date:12/08/2025; Approval Details Authorized from November 08, 2024 to December 08, 2025 Electronic appeal: Not supported Prior auth initiated by: Ban Villafana LPN View History Medication Being Authorized cyclobenzaprine (FLEXERIL) 10 mg tablet Take 1 tablet by mouth two times a day as needed for muscle spasm. 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 To be filled at: [facility] [address] [place] [address] - [address] - [phone] Pharmacy notified. Allergies As of Date: 12/08/2024 (No Known Allergies) Date Reviewed: 11/22/2024 Reviewed by: Gregor Fernandez APRN.GRAPHIC DESIGN SPECIALIST - Fully Assessed Reason for Visit: Insurance Authorization [[id number]] Prescriptions as of 12/08/2024 - cyclobenzaprine (FLEXERIL) 10 mg tablet Take 1 tablet by mouth two times a day as needed for muscle spasm. - HYDROcodone-acetamin ophen (NORCO) 5-325 mg per tablet Take 1 tablet by mouth two times a day as needed for pain for up to 30 days. - predniSONE (DELTASONE) 10 mg tablet Take 1.5 pills every day or every other day as needed - nicotine (NICODERM) 14 mg/24 hr apply one patch transdermally as directed every 24 hours - furosemide (LASIX) 20 mg tablet Take 1 tablet by mouth once daily. - verapamil ER 180 mg 24 hr capsule Take 1 capsule by mouth two times a day. - apixaban (ELIQUIS) 5 mg tab(s) Take 5 mg by mouth two times a day. - carvedilol (COREG) 6.25 mg tablet Take 6.25 mg by mouth two times a day with meals. - dronedarone (MULTAQ) 400 mg tab Take 400 mg by mouth two times a day with meals. - levoFLOXacin (LEVAQUIN) 500 mg tablet Take 500 mg by mouth once daily. - busPIRone (BUSPAR) 10 mg tablet Take 1 tablet by mouth two times a day. - ipratropium-albutero l (DUONEB) 0.5 mg-3 mg(2.5 mg base)/3 mL nebu inhale 1 ampule via nebulizer every 4 hours if needed for wheezing. Use over 5 to 15 minutes - nystatin (MYCOSTATIN) 100,000 unit/mL suspension Take 5 mL by mouth four times daily. 1tsp swish in mouth for several minutes, then swallow (or expectorate) 4 times daily until gone. - sertraline (ZOLOFT) 100 mg tablet Take 2 tablets by mouth once daily. - Cholecalciferol, Vitamin D3, 50 mcg (2,000 unit) cap Take 1 capsule by mouth once daily. - omeprazole (PRILOSEC) 20 mg capsule Take 1 capsule by mouth once daily. ON AN EMPTY STOMACH - montelukast (SINGULAIR) 10 mg tablet Take 1 tablet by mouth once daily. - tiotropium (SPIRIVA) 18 mcg inhalation capsule Inhale 1 capsule as instructed once daily. - albuterol HFA (VENTOLIN HFA) 90 mcg/actuation inhaler Inhale 2 Puffs as instructed every 4 hours as needed. - fluticasone-salmeter ol (ADVAIR DISKUS) 500-50 mcg/dose [...] directed. Dx: COPD J44.9 - Nebulizer Accessories [facility] Mask and supplies as needed - PULSE OXIMETER [facility] Use as directed to check oxygen saturation level - ammonium lactate (AMLACTIN) 12 % lotion Apply 1 application to affected area as needed for Dry Skin. - losartan (COZAAR) 50 mg tablet Take 0.5 tablets by mouth once daily. - OXYGEN, HOME THERAPY, 2.5 L/min by Nasal Cannula route continuous. Use as directred - Disposable Gloves (DISPOSABLE LATEX-FREE GLOVES) [facility] Box once every month. ICD 10: [...] be starting Problem List As Of Date 12/08/2024 Noted Resolved Other (more content not included)... Normal [facility] 36on 11-28-2024 36 Chart made and GRADES 1 THROUGH 5 TEACHER packet mailed Normal [facility] [place] 11-27-2024 CNPN Telephone (FAMPWS) DENIA GONZALEZ ([id number]) 1955 F Date Time Provider Department 11/27[facility] During your visit today, we recorded the following information about you: Padmini Abbott RN 11/27/2024 2:16 PM Signed Rafa with [facility] Nursing calling and states he plans to add 1 more visit to pt's plan of care, to discharge patient. No call back needed if provider agreeable with this. KAREN Robledo Mark D, MD 11/27/2024 3:12 PM Signed Noted and agree Yoseph Fall MD Allergies As of Date: 11/27/2024 (No Known Allergies) Date Reviewed: 11/22/2024 Reviewed by: Gregor Fernandez APRN.GRAPHIC DESIGN SPECIALIST - Fully Assessed Reason for Visit: [facility] Nursing Call [Other] Prescriptions as of 11/27/2024 - doxycycline (VIBRA-TABS) 100 mg tablet Take 1 tablet by mouth two times a day for 10 days. - HYDROcodone-acetamin ophen (NORCO) 5-325 mg per tablet Take 1 tablet by mouth two times a day as needed for pain for up to 30 days. - predniSONE (DELTASONE) 10 mg tablet Take 1.5 pills every day or every other day as needed - nicotine (NICODERM) 14 mg/24 hr apply one patch transdermally as directed every 24 hours - furosemide (LASIX) 20 mg tablet Take 1 tablet by mouth once daily. - verapamil ER 180 mg 24 hr capsule Take 1 capsule by mouth two times a day. - apixaban (ELIQUIS) 5 mg tab(s) Take 5 mg by mouth two times a day. - carvedilol (COREG) 6.25 mg tablet Take 6.25 mg by mouth two times a day with meals. - dronedarone (MULTAQ) 400 mg tab Take 400 mg by mouth two times a day with meals. - levoFLOXacin (LEVAQUIN) 500 mg tablet Take 500 mg by mouth once daily. - busPIRone (BUSPAR) 10 mg tablet Take 1 tablet by mouth two times a day. - ipratropium-albutero l (DUONEB) 0.5 mg-3 mg(2.5 mg base)/3 mL nebu inhale 1 ampule via nebulizer every 4 hours if needed for wheezing. Use over 5 to 15 minutes - nystatin (MYCOSTATIN) 100,000 unit/mL suspension Take 5 mL by mouth four times daily. 1tsp swish in mouth for several minutes, then swallow (or expectorate) 4 times daily until gone. - sertraline (ZOLOFT) 100 mg tablet Take 2 tablets by mouth once daily. - Cholecalciferol, Vitamin D3, 50 mcg (2,000 [...] 1 capsule as instructed once daily. - albuterol HFA (VENTOLIN HFA) 90 mcg/actuation inhaler Inhale 2 Puffs as instructed every 4 hours as needed. - fluticasone-salmeter ol (ADVAIR DISKUS) 500-50 mcg/dose [...] directed. Dx: COPD J44.9 - Nebulizer Accessories [facility] Mask and supplies as needed - PULSE OXIMETER [facility] Use as directed to check oxygen saturation level - ammonium lactate (AMLACTIN) 12 % lotion Apply 1 application to affected area as needed for Dry Skin. - losartan (COZAAR) 50 mg tablet Take 0.5 tablets by mouth once daily. - OXYGEN, HOME THERAPY, 2.5 L/min by Nasal Cannula route continuous. Use as directred - Disposable Gloves (DISPOSABLE LATEX-FREE GLOVES) [facility] Box once every month. ICD 10: [...] be starting Problem List As Of Date 11/27/2024 Noted Resolved Other and unspecified alcohol dependence, [...] Cholelithiasis with acute cholangitis with bili*06/21/2016 06/27/2016 Constipatio (more content not included)... [facility] DENIA GONZALEZ ([id number]) 1955 F Date Time Provider Department 11/24/24 CONNOR SHAW [facility] During your visit today, we recorded the following information about you: Connor Shaw LISW 11/24/2024 11:11 AM Signed November 24, 2024 Opened by mistake, please disregard. ANAM [facility] Social Work [phone] Allergies As of Date: 11/24/2024 (No Known Allergies) Date Reviewed: 11/22/2024 Reviewed by: Gregor Fernandez APRN.GRAPHIC DESIGN SPECIALIST - Fully Assessed Prescriptions as of 11/24/2024 - doxycycline (VIBRA-TABS) 100 mg tablet Take 1 tablet by mouth two times a day for 10 days. - HYDROcodone-acetamin ophen (NORCO) 5-325 mg per tablet Take 1 tablet by mouth two times a day as needed for pain for up to 30 days. - predniSONE (DELTASONE) 10 mg tablet Take 1.5 pills every day or every other day as needed - nicotine (NICODERM) 14 mg/24 hr apply one patch transdermally as directed every 24 hours - furosemide (LASIX) 20 mg tablet Take 1 tablet by mouth once daily. - verapamil ER 180 mg 24 hr capsule Take 1 capsule by mouth two times a day. - apixaban (ELIQUIS) 5 mg tab(s) Take 5 mg by mouth two times a day. - carvedilol (COREG) 6.25 mg tablet Take 6.25 mg by mouth two times a day with meals. - dronedarone (MULTAQ) 400 mg tab Take 400 mg by mouth two times a day with meals. - levoFLOXacin (LEVAQUIN) 500 mg tablet Take 500 mg by mouth once daily. - busPIRone (BUSPAR) 10 mg tablet Take 1 tablet by mouth two times a day. - ipratropium-albutero l (DUONEB) 0.5 mg-3 mg(2.5 mg base)/3 mL nebu inhale 1 ampule via nebulizer every 4 hours if needed for wheezing. Use over 5 to 15 minutes - nystatin (MYCOSTATIN) 100,000 unit/mL suspension Take 5 mL by mouth four times daily. 1tsp swish in mouth for several minutes, then swallow (or expectorate) 4 times daily until gone. - sertraline (ZOLOFT) 100 mg tablet Take 2 tablets by mouth once daily. - Cholecalciferol, Vitamin D3, 50 mcg (2,000 [...] 1 capsule as instructed once daily. - albuterol HFA (VENTOLIN HFA) 90 mcg/actuation inhaler Inhale 2 Puffs as instructed every 4 hours as needed. - fluticasone-salmeter ol (ADVAIR DISKUS) 500-50 mcg/dose [...] directed. Dx: COPD J44.9 - [facility] Mask and supplies as needed - PULSE OXIMETER [facility] Use as directed to check oxygen saturation level - ammonium lactate (AMLACTIN) 12 % lotion Apply 1 application to affected area as needed for Dry Skin. - losartan (COZAAR) 50 mg tablet Take 0.5 tablets by mouth once daily. - OXYGEN, HOME THERAPY, 2.5 L/min by Nasal Cannula route continuous. Use as directred - Disposable Gloves (DISPOSABLE LATEX-FREE GLOVES) [facility] Box once every month. ICD 10: [...] be starting Problem List As Of Date 11/24/2024 Noted Resolved Other and unspecified alcohol dependence, [...] duct with acute cholangitis wi*06/30/2016 MRSA bacteremia (more content not included)... [facility] MONICODENIA Gisell ([id number]) 1955 F Date Time Provider Department 11/24/24 RICHARD BROUSSARD [facility] During your visit today, we recorded the following information about you: Richard Broussard RN 11/24/2024 3:36 PM Signed Palliative Medicine at Home Care Coordination New Patient Note My chart note sent. Nurse introduced self and role of Manager Fashion in Palliative Medicine. Reviewed contact sheet information and on-call process. Nurse educated patient on medication refill process. Nurse encouraged patient to call with any questions/concerns/s ymptom related issues. Richard Broussard RNCC Jointer Machine Operator Allergies As of Date: 11/24/2024 (No Known Allergies) Date Reviewed: 11/22/2024 Reviewed by: Gregor Fernandez APRN.GRAPHIC DESIGN SPECIALIST - Fully Assessed Reason for Visit: Care Coordination [3491] Prescriptions as of 11/24/2024 - doxycycline (VIBRA-TABS) 100 mg tablet Take 1 tablet by mouth two times a day for 10 days. - HYDROcodone-acetamin ophen (NORCO) 5-325 mg per tablet Take 1 tablet by mouth two times a day as needed for pain for up to 30 days. - predniSONE (DELTASONE) 10 mg tablet Take 1.5 pills every day or every other day as needed - nicotine (NICODERM) 14 mg/24 hr apply one patch transdermally as directed every 24 hours - furosemide (LASIX) 20 mg tablet Take 1 tablet by mouth once daily. - verapamil ER 180 mg 24 hr capsule Take 1 capsule by mouth two times a day. - apixaban (ELIQUIS) 5 mg tab(s) Take 5 mg by mouth two times a day. - carvedilol (COREG) 6.25 mg tablet Take 6.25 mg by mouth two times a day with meals. - dronedarone (MULTAQ) 400 mg tab Take 400 mg by mouth two times a day with meals. - levoFLOXacin (LEVAQUIN) 500 mg tablet Take 500 mg by mouth once daily. - busPIRone (BUSPAR) 10 mg tablet Take 1 tablet by mouth two times a day. - ipratropium-albutero l (DUONEB) 0.5 mg-3 mg(2.5 mg base)/3 mL nebu inhale 1 ampule via nebulizer every 4 hours if needed for wheezing. Use over 5 to 15 minutes - nystatin (MYCOSTATIN) 100,000 unit/mL suspension Take 5 mL by mouth four times daily. 1tsp swish in mouth for several minutes, then swallow (or expectorate) 4 times daily until gone. - sertraline (ZOLOFT) 100 mg tablet Take 2 tablets by mouth once daily. - Cholecalciferol, Vitamin D3, 50 mcg (2,000 [...] 1 capsule as instructed once daily. - albuterol HFA (VENTOLIN HFA) 90 mcg/actuation inhaler Inhale 2 Puffs as instructed every 4 hours as needed. - fluticasone-salmeter ol (ADVAIR DISKUS) 500-50 mcg/dose [...] directed. Dx: COPD J44.9 - Nebulizer Accessories [facility] Mask and supplies as needed - PULSE OXIMETER [facility] Use as directed to check oxygen saturation level - ammonium lactate (AMLACTIN) 12 % lotion Apply 1 application to affected area as needed for Dry Skin. - losartan (COZAAR) 50 mg tablet Take 0.5 tablets by mouth once daily. - OXYGEN, HOME THERAPY, 2.5 L/min by Nasal Cannula route continuous. Use as directred - Disposable Gloves (DISPOSABLE LATEX-FREE GLOVES) [facility] Box once every month. ICD 10: [...] be starting Problem List As Of Date 11/24/2024 Noted Resolved Other and unspecified alcohol dependence, unspe* 08/11/2018 LUNG CANCER [C34.10] 04/13/2005 06/27/2016 MALIG NEOPLASM BRONCH/LUNG NOS [C34.90] 12/08/2006 DYSTHYMIC DISORDER [F34.1] TOBACCO USE DISORDER [F17.200] 08/21/2005 Stage 3 severe COPD by GOLD classification (HCC*09/28/2005 Asthma [J45.909] GENERAL OSTEOARTHROSIS [M15.9] Essential hypertension, benign [I10] GENERALIZED ANXIETY DIS [F41.1] ABNORMAL PAP SMEAR OF CERVIX NEC AND HPV [R89.6] ESOPHAGEAL REFLUX [K21.9] 03/22/2007 B (more content not included)... [facility] Telephone ([facility]) DENIA GONZALEZ ([id number]) 1955 F Date Time Provider Department 11/23/24 RICHARD BROUSSARD [facility] During your visit today, we recorded the following information about you: Richard Broussard, KAREN 11/23/2024 1:09 PM Signed Patient was seen by palliative care provider, Gregor Fernandez CNP for virtual visit today. Patient asking for portable O2 system such as inogen? She is not getting out with her small tanks because she is scared to run out. Pt needs to be able to get to pain management, pulmonology and cardiology and the first 2 she is not going to because of this obstacle. Palliative care provides medications for symptom management of chronic diseases. Palliative care does not replace the role of PCP in ordering durable medical equipment requests or home health. PCP has also ordered Oxygen and nebulizer for patient in the past. Routing to PCP office to address request for portable Oxygen machine/device. Thank you, Richard Broussard, RNCC, PN Jointer Machine Operator Allergies As of Date: 11/23/2024 (No Known Allergies) Date Reviewed: 11/22/2024 Reviewed by: Gregor Fernandez APRN.GRAPHIC DESIGN SPECIALIST - Fully Assessed Reason for Visit: Portable O2 device [Other] Care Coordination [6146] Prescriptions as of 11/30/2024 - doxycycline (VIBRA-TABS) 100 mg tablet Take 1 tablet by mouth two times a day for 10 days. - HYDROcodone-acetamin ophen (NORCO) 5-325 mg per tablet Take 1 tablet by mouth two times a day as needed for pain for up to 30 days. - predniSONE (DELTASONE) 10 mg tablet Take 1.5 pills every day or every other day as needed - nicotine (NICODERM) 14 mg/24 hr apply one patch transdermally as directed every 24 hours - furosemide (LASIX) 20 mg tablet Take 1 tablet by mouth once daily. - verapamil ER 180 mg 24 hr capsule Take 1 capsule by mouth two times a day. - apixaban (ELIQUIS) 5 mg tab(s) Take 5 mg by mouth two times a day. - carvedilol (COREG) 6.25 mg tablet Take 6.25 mg by mouth two times a day with meals. - dronedarone (MULTAQ) 400 mg tab Take 400 mg by mouth two times a day with meals. - levoFLOXacin (LEVAQUIN) 500 mg tablet Take 500 mg by mouth once daily. - busPIRone (BUSPAR) 10 mg tablet Take 1 tablet by mouth two times a day. - ipratropium-albutero l (DUONEB) 0.5 mg-3 mg(2.5 mg base)/3 mL nebu inhale 1 ampule via nebulizer every 4 hours if needed for wheezing. Use over 5 to 15 minutes - nystatin (MYCOSTATIN) 100,000 unit/mL suspension Take 5 mL by mouth four times daily. 1tsp swish in mouth for several minutes, then swallow (or expectorate) 4 times daily until gone. - sertraline (ZOLOFT) 100 mg tablet Take 2 tablets by mouth once daily. - Cholecalciferol, Vitamin D3, 50 mcg (2,000 [...] 1 capsule as instructed once daily. - albuterol HFA (VENTOLIN HFA) 90 mcg/actuation inhaler Inhale 2 Puffs as instructed every 4 hours as needed. - fluticasone-salmeter ol (ADVAIR DISKUS) 500-50 mcg/dose [...] directed. Dx: COPD J44.9 - Nebulizer Accessories [facility] Mask and supplies as needed - PULSE OXIMETER [facility] Use as directed to check oxygen saturation level - ammonium lactate (AMLACTIN) 12 % lotion Apply 1 application to affected area as needed for Dry Skin. - losartan (COZAAR) 50 mg tablet Take 0.5 tablets by mouth once daily. - OXYGEN, HOME THERAPY, 2.5 L/min by Nasal Cannula route continuous. Use as directred - Disposable Gloves (DISPOSABLE LATEX-FREE GLOVES) [facility] 1 Box once every month. ICD 10: [...] be starting Problem List As Of Date 11/23/2024 Noted Resolved Other and unspecified alcohol dependence, unspe* 08/11/2018 LUNG CANCER [C34.10] 04/13/2005 03/0 (more content not included)... Normal [facility] 36on 11-22-2024 36 VC appt made I need to make chart and mail GRADES 1 THROUGH 5 TEACHER packet. Working on getting records scanned in. [facility] 11-20-2024 CNPN Telephone (FAMPWS) DENIA GONZALEZ ([id number]) 1955 F Date Time Provider Department 11/20/24 [facility] During your visit today, we recorded the following information about you: Sukhi Marrero, KAREN 11/20/2024 3:19 PM Signed Rafa RN with [facility] calls to let provider know that he is going to see patient one time next week prior to discharge from their services. Rafa reports his goals have been met for nursing but patient continues to report yellow/green/brown sputum. Rfaa reports bilateral lung sounds are diminished but other than that no fever or other symptoms. Patient is requesting the prescription for cefdinir as she was not able to take the Levaquin ordered by the hospital because of being on the Multaq. Per previous notes, notified Rafa that patient would need to be seen in office. Rafa reports that patient thinks Dr. Fall is back so requesting again. Notified Dr. Fall is out until 11/23/2024 and on-call will not prescribe with out seeing patient. Requested message be sent to Dr. Fall for when returns or if GRADES 1 THROUGH 5 TEACHER would review. KAREN Barney Mark D, MD 11/23/2024 2:33 PM Signed Does she feel that she still needs an antibiotic? MD Zaki Chopra Kathryn, MA 11/23/2024 2:51 PM Signed Pt states she still feels like she needs an antibiotic, unable to take Levaquin due to medication interaction. Drug [place]. JOS Sandy Mark D, MD 11/24/2024 10:30 AM Signed OK for doxycycline as ordered Yoseph Fall MD Allergies As of Date: 11/20/2024 (No Known Allergies) Date Reviewed: 11/20/2024 Reviewed by: Gregor Fernandez APRN.GRAPHIC DESIGN SPECIALIST - Fully Assessed Reason for Visit: Patient Update [1234] Visit Diagnosis:Stage 3 severe COPD by GOLD classification ([facility]) [J44.9] Order(s):doxycycline (VIBRA-TABS) 100 mg tabletTake 1 tablet by mouth two times a day for 10 days.Disp: 20 tabletRfl: 0 Prescriptions as of 11/24/2024 - doxycycline (VIBRA-TABS) 100 mg tablet Take 1 tablet by mouth two times a day for 10 days. - HYDROcodone-acetamin ophen (NORCO) 5-325 mg per tablet Take 1 tablet by mouth two times a day as needed for pain for up to 30 days. - predniSONE (DELTASONE) 10 mg tablet Take 1.5 pills every day or every other day as needed - nicotine (NICODERM) 14 mg/24 hr apply one patch transdermally as directed every 24 hours - furosemide (LASIX) 20 mg tablet Take 1 tablet by mouth once daily. - verapamil ER 180 mg 24 hr capsule Take 1 capsule by mouth two times a day. - apixaban (ELIQUIS) 5 mg tab(s) Take 5 mg by mouth two times a day. - carvedilol (COREG) 6.25 mg tablet Take 6.25 mg by mouth two times a day with meals. - dronedarone (MULTAQ) 400 mg tab Take 400 mg by mouth two times a day with meals. - levoFLOXacin (LEVAQUIN) 500 mg tablet Take 500 mg by mouth once daily. - busPIRone (BUSPAR) 10 mg tablet Take 1 tablet by mouth two times a day. - ipratropium-albutero l (DUONEB) 0.5 mg-3 mg(2.5 mg base)/3 mL nebu inhale 1 ampule via nebulizer every 4 hours if needed for wheezing. Use over 5 to 15 minutes - nystatin (MYCOSTATIN) 100,000 unit/mL suspension Take 5 mL by mouth four times daily. 1tsp swish in mouth for several minutes, then swallow (or expectorate) 4 times daily until gone. - sertraline (ZOLOFT) 100 mg tablet Take 2 tablets by mouth once daily. - Cholecalciferol, Vitamin D3, 50 mcg (2,000 [...] 1 capsule as instructed once daily. - albuterol HFA (VENTOLIN HFA) 90 mcg/actuation inhaler Inhale 2 Puffs as instructed every 4 hours as needed. - fluticasone-salmeter ol (ADVAIR DISKUS) 500-50 mcg/dose [...] directed. Dx: COPD J44.9 - [facility]ulizer [facility] Mask and supplies as needed - PULSE OXIMETER [facility] Use as directed to check oxygen saturation level - ammonium lactate (AMLACTIN) 12 % lotion Apply 1 application to affected area as needed for Dry Skin. - losartan (COZAAR) 50 mg tablet Take 0.5 tablets by mouth once daily. - OXYGEN, HOME THERAPY, 2.5 L/min by Nasal Cannula route c (more content not included)... Normal [facility] 11-10-2024 CNPN Telephone (FAMPWS) DENIA GONZALEZ ([id number]) 1955 F Date Time Provider Department 11/10[facility] During your visit today, we recorded the following information about you: Padmini Abbott RN 11/10/2024 3:48 PM Signed Patient's partner, Mike Gregg calling with pt speaking in background. Mike states pt has run out of her prednisone and it is too early for another refill. Reports she was not taking the prednisone as prescribed. States after a recent hospital visit she thought she was to be taking the prednisone daily. Pt has been taking prednisone 15 mg daily and not every other day as ordered. Pt reports she takes prednisone for breathing issues and skin issues. Reports itching of her mid back. Mike states there are scratch cagle and some scabbed areas to her mid and lower back but no open areas. Sometimes she gets rash areas on her arms but Mike states her arms look okay now. Please advise. KAREN Robledo M Robin, RN 11/13/2024 2:10 PM Signed Brenda- nurse- [facility]- phoned to check on pcp reply to message below. Brenda reports when pt was discharged from [facility] she took the prednisone dose prescribed by [facility], and therefor ran out early. Advised message below was sent to pcp and we will call pt with his reply. Yoseph Fall MD 11/13/2024 3:32 PM Signed New Rx done for 15 mg every day or every other day as needed MD Zaki Chopra Kathryn, MA 11/13/2024 3:46 PM Signed Message left for Mike to call back. JOS Sandy Sherrie, RN 11/13/2024 4:51 PM Signed Mike returned call and given provider's message below. Andres Abbott RN Allergies As of Date: 11/10/2024 (No Known Allergies) Date Reviewed: 10/17/2024 Reviewed by: Naima Haines MA - Fully Assessed Reason for Visit: Patient Request [[id number]] Patient Update [2624] Visit Diagnosis:Stage 3 severe COPD by GOLD classification (HCC) [J44.9] Order(s):predniSONE (DELTASONE) 10 mg tabletTake 1.5 pills every day or every other day as neededDisp: 45 tabletRfl: 5 Prescriptions as of 11/13/2024 - predniSONE (DELTASONE) 10 mg tablet Take 1.5 pills every day or every other day as needed - nicotine (NICODERM) 14 mg/24 hr apply one patch transdermally as directed every 24 hours - furosemide (LASIX) 20 mg tablet Take 1 tablet by mouth once daily. - verapamil ER 180 mg 24 hr capsule Take 1 capsule by mouth two times a day. - HYDROcodone-acetamin ophen (NORCO) 5-325 mg per tablet Take 1 tablet by mouth two times a day as needed for pain for up to 30 days. - apixaban (ELIQUIS) 5 mg tab(s) Take 5 mg by mouth two times a day. - carvedilol (COREG) 6.25 mg tablet Take 6.25 mg by mouth two times a day with meals. - dronedarone (MULTAQ) 400 mg tab Take 400 mg by mouth two times a day with meals. - levoFLOXacin (LEVAQUIN) 500 mg tablet Take 500 mg by mouth once daily. - busPIRone (BUSPAR) 10 mg tablet Take 1 tablet by mouth two times a day. - ipratropium-albutero l (DUONEB) 0.5 mg-3 mg(2.5 mg base)/3 mL nebu inhale 1 ampule via nebulizer every 4 hours if needed for wheezing. Use over 5 to 15 minutes - nystatin (MYCOSTATIN) 100,000 unit/mL suspension Take 5 mL by mouth four times daily. 1tsp swish in mouth for several minutes, then swallow (or expectorate) 4 times daily until gone. - sertraline (ZOLOFT) 100 mg tablet Take 2 tablets by mouth once daily. - Cholecalciferol, Vitamin D3, 50 mcg (2,000 [...] 1 capsule as instructed once daily. - albuterol HFA (VENTOLIN HFA) 90 mcg/actuation inhaler Inhale 2 Puffs as instructed every 4 hours as needed. - fluticasone-salmeter ol (ADVAIR DISKUS) 500-50 mcg/dose [...] directed. Dx: COPD J44.9 - Nebulizer Accessories [facility] Mask and supplies as needed - PULSE OXIMETER [facility] Use as directed to check oxygen saturation level - ammonium lactate (AMLACTIN) 12 % lotion Apply 1 application to affected area as needed for Dry Skin. - losartan (COZAAR) 50 mg tablet Take 0.5 tablets by mouth once daily. - OXYGEN, HOME THERAPY, 2.5 L/min by Nasal Cannula route continuo (more content not included)... Normal [facility] Cardiology Visit Reporton Cardiology Visit Report [facility] [address] [place] [address] OFFICE VISIT Date of Service: 11/03/24 MR#: [id number] Acct: [id number] Name: DENIA GONZALEZ Rep #: [id number] : 1955 Provider: SADIQ Campoverde Age/Sex: 69/F Location: [facility] Status: Signed HPI HPI History of Present Illness Details: Denia Gonzalez is a 69-year-old female that was admitted to [facility] on September 29, 2024 and discharged on October 09, 2024. She was admitted for acute hypoxic and hypercapnic respiratory failure due to COPD and pneumonia. During her hospital stay she was noted to have atrial fibrillation with RVR. She underwent an echocardiogram which demonstrated severe concentric LVH with an estimated ejection fraction of 70%, stage I diastolic dysfunction, severely calcified aortic valve with severe aortic valve stenosis with a peak mean gradient of 50 mmHg. Patient was started on Multaq, carvedilol and verapamil in addition to Eliquis. It was felt that patient could be evaluated on an outpatient basis for a possible TAVR. Pt notes that she does have chest pain that are chest pain. It is a few last times a week. It will last less than a minute. Her notes that she does complain of chest pressure. She does have SOB, She is on O2. She does have a chronic cough. She does feel her heart racing at times. She does sometimes have lightheadedness/dizz iness. She does have anxiety and does not leave home often. She sleeps on her sofa. She does not have a current list of her medications. She is not aware of what they are. She does have HH coming in. She has not been smoking for 2 months Intake Vital Signs 10/08/24 11:37 11/03/24 13:06 Height 5 ft 4 in 5 ft 4 in Weight: 151 lb BMI 25.9 BP 110/65 Blood Pressure Location Lt brachial Position Sitting Respiration 20 H Pulse 86 Pulse Source Monitor Intake Visit Reasons: S/P [facility] 10/09 New AFIB/Severe Blower Feeder Dyed Raw Stock Required: No Accompanied by: Friend Is patient in pain?: No Allergies No Known Allergies Allergy (Verified 11/03/24 13:07) Have you fallen in the past year?: Yes (x 1. Legs gave out going up stairs.) Nurse's Note: Forgot medication list and unable to remember medications. Unable to reconcile medications. [facility] Medical History (Updated 11/03/24 @ 13:37 by Lindsay BABCOCK, PA) Afib Aortic valve stenosis RLS (restless legs syndrome) History of ETOH abuse Chronic hypoxic respiratory failure, on home oxygen therapy COPD (chronic obstructive pulmonary disease) Anxiety Depression Smoker Asthma Hypertension Migraines Surgical History H/O exploratory laparotomy History of lung surgery History of cholecystectomy Family History Mother Hypertension Throat cancer Father Hypertension Stomach cancer Social History household members: significant other and none housing: apartment Smoking Status: Former smoker alcohol intake: former substance use type: does not use ROS Const Const: Negative for fatigue or weakness Eyes Eyes: Negative for change in vision ENT ENT: Positive for dizziness (today but may be r/t anxiety of transport.); Negative for balance problems Cardio Chest Pain: Yes Frequency: daily (intermittent) Character: tightness Palpitations: Yes (when she has panic attack) Edema: Bilateral Resp Respiratory: Positive for SOB with activity; Negative for SOB at rest or SOB orthopnea SOB lying down Additional Details: COPD GI GI: Negative nausea or heartburn Musc Musc: Negative for balance problems Neuro Neuro: Positive for dizziness (today but may be r/t anxiety of transport.) and lightheadedness; Negative for near syncope, syncope or weakness Endo Endo: Negative for fatigue Cardiology Exam Const Appearance: cooperative, comfortable, no acute distress and disheveled Orientation: alert, awake and oriented x3 on O2, in WC Head Head: normal to inspection Ears: hearing grossly normal bilaterally Nose: external nose normal Face and Sinus: face symmetric Mouth: oral mucosae normal, lip normal and moist mucous membranes Teeth and gingiva: poor dentition Eyes General: appearance normal, both eyes and all related structures Eyelids: eyelids normal Conjunctivae: conjunctivae normal Pupils: PERRL EOM: EOM intact bilaterally Neck Neck: normal visual inspection and trachea midline; Negative no JVD Carotids: Negative bruit Chest Chest inspection: normal inspection of the chest Auscultation: Bilateral: Diminished Lung Sounds (severely diminished bilaterally) Cardio Palpation: normal PMI Rate: regular rate (more content not included)... Normal [facility] DEN[facility] ([id number]) 1955 F Date Time Provider Department 10/24/24 [facility] During your visit today, we recorded the following information about you: Padmini Abbott RN 10/24/2024 3:59 PM Signed Patient's significant other, Mike Gregg calling in with pt speaking in the background. Mike states patient wants to be back on the antibiotic that she was on when she got out of the hospital. She is coughing up yellow/brown sputum. Pt denies fever, shortness of breath at rest, chest pain, wheezing or other sx's. SpO2 96% on 3 LPM. Reports lasix pills that PCP ordered for her are helping her leg swelling. Please call patient back with reply. [phone] KAREN Robledo Mark D, MD 10/24/2024 4:55 PM Signed OK for another 7 days of Levaquin MD Annmarie Chopra Amanda, KAREN 10/24/2024 5:00 PM Signed Pt called and is notified of providers message and instructions. Pt voices understanding. KAREN Merlos Michelle, RN 10/24/2024 5:30 PM Signed Rafa with [facility] HH is calling due to pharmacy unable to fill levaquin due to level 1 severe reaction with the multaq patient takes. When this happened when patient was d/c from [facility] the antibitoc was change to cefdinir 300mg. Rafa needs called back with information along with patient and a different medication sent to pharmacy. Patrick Stinson MD 10/25/2024 8:19 AM Signed Recommend she come in for OV for further evaluation today. My team has openings. Clarisse Anguiano RN 10/25/2024 11:44 AM Signed Pt called and is notified of providers message. Pt voices understanding, but states she doesn't know if she would have a ride. I asked Pt if she could call her ride an see if they could bring her in at 5 or 520 because we could get her in then. Pt is going to call ride and will call back in. Clarisse Anguiano RN Allergies As of Date: 10/24/2024 (No Known Allergies) Date Reviewed: 10/17/2024 Reviewed by: Naima Haines MA - Fully Assessed Reason for Visit: Patient Request [[id number]] Order(s):levoFLOXaci n (LEVAQUIN) 500 mg tabletTake 1 tablet by mouth once daily for 7 days.Disp: 7 tabletRfl: 0 Prescriptions as of 10/25/2024 - levoFLOXacin (LEVAQUIN) 500 mg tablet Take 1 tablet by mouth once daily for 7 days. - furosemide (LASIX) 20 mg tablet Take 1 tablet by mouth once daily. - verapamil ER 180 mg 24 hr capsule Take 1 capsule by mouth two times a day. - HYDROcodone-acetamin ophen (NORCO) 5-325 mg per tablet Take 1 tablet by mouth two times a day as needed for pain for up to 30 days. - predniSONE (DELTASONE) 10 mg tablet Take 1.5 tablets by mouth every other day. - apixaban (ELIQUIS) 5 mg tab(s) Take 5 mg by mouth two times a day. - carvedilol (COREG) 6.25 mg tablet Take 6.25 mg by mouth two times a day with meals. - dronedarone (MULTAQ) 400 mg tab Take 400 mg by mouth two times a day with meals. - levoFLOXacin (LEVAQUIN) 500 mg tablet Take 500 mg by mouth once daily. - nicotine (NICODERM) 14 mg/24 hr Apply 1 patch as directed every 24 hours. - busPIRone (BUSPAR) 10 mg tablet Take 1 tablet by mouth two times a day. - ipratropium-albutero l (DUONEB) 0.5 mg-3 mg(2.5 mg base)/3 mL nebu inhale 1 ampule via nebulizer every 4 hours if needed for wheezing. Use over 5 to 15 minutes - nystatin (MYCOSTATIN) 100,000 unit/mL suspension Take 5 mL by mouth four times daily. 1tsp swish in mouth for several minutes, then swallow (or expectorate) 4 times daily until gone. - sertraline (ZOLOFT) 100 mg tablet Take 2 tablets by mouth once daily. - Cholecalciferol, Vitamin D3, 50 mcg (2,000 [...] 1 capsule as instructed once daily. - albuterol HFA (VENTOLIN HFA) 90 mcg/actuation inhaler Inhale 2 Puffs as instructed every 4 hours as needed. - fluticasone-salmeter ol (ADVAIR DISKUS) 500-50 mcg/dose [...] directed. Dx: COPD J44.9 - Nebulizer Accessories [facility] Mask and supplies as needed - PULSE OXIMETER [facility] Use as directed to check oxygen saturation level - ammonium lactate (AMLACTI (more content not included)... [facility] DEN[facility] ([id number]) 1955 F Date Time Provider Department 10/24/24 YOSEPH FALL [facility] During your visit today, we recorded the following information about you: Jennifer Hennessy LPN 10/24/2024 4:29 PM Signed Ubaldo with [facility] calls in regard to order for Palliative Care. In regards to DX: Ubaldo reports they can see pt for severe COPD. Ubaldo reports they cannot treat pt for back pain unless it is in regards to cancer or something like that. Pt would need to see a pain specialist for that. Please review and advise. LAURIE Dodge Mark D, MD 10/24/2024 4:56 PM Signed OK to just see her for severe COPD MD Liban Chopra M Robin, KAREN 10/25/2024 1:21 PM Signed Rafa [facility] reports patient asked him to call to see if pcp would send Rx to her pharmacy in place of levaquin. Reports pt has a productive cough and chest congestion. Advised Rafa pcp is out of the office for the rest of this week and all of next week, and OC doctor recommends ov. Rafa asking if pt can do VV. Advised a provider would have to do an assessment and listen to patient's lung. Rafa agreeable and will let pt know. Yoseph Fall MD 11/03/2024 5:04 PM Signed Noted Yoseph Fall MD Allergies As of Date: 10/24/2024 (No Known Allergies) Date Reviewed: 10/17/2024 Reviewed by: Naima Haines MA - Fully Assessed Reason for Visit: order question [Other] Prescriptions as of 11/03/2024 - nicotine (NICODERM) 14 mg/24 hr apply one patch transdermally as directed every 24 hours - furosemide (LASIX) 20 mg tablet Take 1 tablet by mouth once daily. - verapamil ER 180 mg 24 hr capsule Take 1 capsule by mouth two times a day. - HYDROcodone-acetamin ophen (NORCO) 5-325 mg per tablet Take 1 tablet by mouth two times a day as needed for pain for up to 30 days. - predniSONE (DELTASONE) 10 mg tablet Take 1.5 tablets by mouth every other day. - apixaban (ELIQUIS) 5 mg tab(s) Take 5 mg by mouth two times a day. - carvedilol (COREG) 6.25 mg tablet Take 6.25 mg by mouth two times a day with meals. - dronedarone (MULTAQ) 400 mg tab Take 400 mg by mouth two times a day with meals. - levoFLOXacin (LEVAQUIN) 500 mg tablet Take 500 mg by mouth once daily. - busPIRone (BUSPAR) 10 mg tablet Take 1 tablet by mouth two times a day. - ipratropium-albutero l (DUONEB) 0.5 mg-3 mg(2.5 mg base)/3 mL nebu inhale 1 ampule via nebulizer every 4 hours if needed for wheezing. Use over 5 to 15 minutes - nystatin (MYCOSTATIN) 100,000 unit/mL suspension Take 5 mL by mouth four times daily. 1tsp swish in mouth for several minutes, then swallow (or expectorate) 4 times daily until gone. - sertraline (ZOLOFT) 100 mg tablet Take 2 tablets by mouth once daily. - Cholecalciferol, Vitamin D3, 50 mcg (2,000 [...] 1 capsule as instructed once daily. - albuterol HFA (VENTOLIN HFA) 90 mcg/actuation inhaler Inhale 2 Puffs as instructed every 4 hours as needed. - fluticasone-salmeter ol (ADVAIR DISKUS) 500-50 mcg/dose [...] directed. Dx: COPD J44.9 - Nebulizer Accessories [facility] Mask and supplies as needed - PULSE OXIMETER [facility] Use as directed to check oxygen saturation level - ammonium lactate (AMLACTIN) 12 % lotion Apply 1 application to affected area as needed for Dry Skin. - losartan (COZAAR) 50 mg tablet Take 0.5 tablets by mouth once daily. - OXYGEN, HOME THERAPY, 2.5 L/min by Nasal Cannula route continuous. Use as directred - Disposable Gloves (DISPOSABLE LATEX-FREE GLOVES) [facility] 1 Box once every month. ICD 10: [...] be starting Problem List As Of Date 10/24/2024 Noted (more content not included)... [facility] DEN[facility] GONZALEZ ([id number]) 1955 F Date Time Provider Department 10/24/24 [facility] During your visit today, we recorded the following information about you: Richard Broussard RN 10/24/2024 2:53 PM Signed Palliative Medicine Referral Assessment Referral Accepted: Yes, Location: Pall Med at Home. Patient current location: Home: Timeframe for schedulin-2 weeks Pall Med appropriate diagnosis: Diagnosis J44.9 (ICD-10-CM) - Stage 3 severe COPD by GOLD classification ([facility]) M54.40,G89.29 (ICD-10-CM) - Chronic low back pain with sciatica, sciatica laterality unspecified, unspecified back pain laterality Established with Inpatient Pall Med team: no Reason for consult: introduction to services, goals of care, fatigue, dyspnea, symptom support , and anxiety/mood and chronic pain Virtual Visit Clinic location: [facility]- no safety concerns identified by nurse. Richard Broussard RN October 24, 2024 Kajal Reyes 11/02/2024 1:06 PM Signed Spoke to Denia who indicates the reasons for consult are introduction to services Family member present n/a Confirmed virtual process yes She has zoom downloaded and is aware she needs to log into my chart for appointment Soonest appointment was accepted. She needed a wednesday Visit confirmed for 11/08/24 Kajal Reyes Allergies As of Date: 10/24/2024 (No Known Allergies) Date Reviewed: 10/17/2024 Reviewed by: Naima Haines MA - Fully Assessed Reason for Visit: pall med- [id number] [Other] Initial Consult [665] Prescriptions as of 11/02/2024 - nicotine (NICODERM) 14 mg/24 hr apply one patch transdermally as directed every 24 hours - furosemide (LASIX) 20 mg tablet Take 1 tablet by mouth once daily. - verapamil ER 180 mg 24 hr capsule Take 1 capsule by mouth two times a day. - HYDROcodone-acetamin ophen (NORCO) 5-325 mg per tablet Take 1 tablet by mouth two times a day as needed for pain for up to 30 days. - predniSONE (DELTASONE) 10 mg tablet Take 1.5 tablets by mouth every other day. - apixaban (ELIQUIS) 5 mg tab(s) Take 5 mg by mouth two times a day. - carvedilol (COREG) 6.25 mg tablet Take 6.25 mg by mouth two times a day with meals. - dronedarone (MULTAQ) 400 mg tab Take 400 mg by mouth two times a day with meals. - levoFLOXacin (LEVAQUIN) 500 mg tablet Take 500 mg by mouth once daily. - busPIRone (BUSPAR) 10 mg tablet Take 1 tablet by mouth two times a day. - ipratropium-albutero l (DUONEB) 0.5 mg-3 mg(2.5 mg base)/3 mL nebu inhale 1 ampule via nebulizer every 4 hours if needed for wheezing. Use over 5 to 15 minutes - nystatin (MYCOSTATIN) 100,000 unit/mL suspension Take 5 mL by mouth four times daily. 1tsp swish in mouth for several minutes, then swallow (or expectorate) 4 times daily until gone. - sertraline (ZOLOFT) 100 mg tablet Take 2 tablets by mouth once daily. - Cholecalciferol, Vitamin D3, 50 mcg (2,000 [...] 1 capsule as instructed once daily. - albuterol HFA (VENTOLIN HFA) 90 mcg/actuation inhaler Inhale 2 Puffs as instructed every 4 hours as needed. - fluticasone-salmeter ol (ADVAIR DISKUS) 500-50 mcg/dose [...] directed. Dx: COPD J44.9 - Nebulizer [facility] Mask and supplies as needed - PULSE OXIMETER [facility] Use as directed to check oxygen [...] DEVICE as necessary Meds Comments as of (more content not included)... Normal [facility]20[facility] DENIA GONZALEZ ([id number]) 1955 F Date Time Provider Department 10/23/24 Y[facility]PH FALL [facility] During your visit today, we recorded the following information about you: Clarisse Anguiano RN 10/23/2024 1:49 PM Signed Rafa JONES [facility] called in about Pt and states je added liquid Mucinex to Pt's medication list as she is taking OTC at home. He states she was recently treated at the hospital for Pneumonia, and she is coughing up thick yellow/ortiz sputum. Lung sounds are diminished with expiratory wheezes, but he reports this is baseline for her. He states her pulse ox has been running high 90s on 3L of O2. He states Pt quit smoking a few weeks ago before she went into the hospital for Pneumonia, and she has COPD. He reports Pt is off of antibiotics. Pt denies Shortness of Breath, but was placed on Lasix last Wednesday for new swelling and the Pt reports it hasn't gotten any better. Rafa states it's +1 pitting. He states she is still having the continued chronic generalized pain and is on the [place] for it. He states the Pt would like a Palliative care referral for pain and breathing. I told him I don't think they do Palliative care for pain, but for breathing they do. Clarisse Anguiano, RN Yoseph Fall MD 10/23/2024 2:46 PM Signed OK for Palliative Care consult as requested MD Zaki Chopra Kathryn, MA 10/23/2024 3:47 PM Signed Rafa notified. Referral faxed, demo, insurance card, OV note, med list faxed to [facility] at [phone] with Palliative Care specified on fax. Naima Haines MA Allergies As of Date: 10/23/2024 (No Known Allergies) Date Reviewed: 10/17/2024 Reviewed by: Naima Haines MA - Fully Assessed Reason for Visit: Patient Update [1234] Primary Visit Diagnosis:Stage 3 severe COPD by GOLD classification (HCC) [J44.9] Other Visit Diagnosis:Chronic low back pain with sciatica, sciatica laterality unspecified, unspecified back pain laterality [M54.40, G89.29] Order(s):CONSULT TO PALLIATIVE CARE [[id number]] Order #: [id number]: 1 FUTURE Prescriptions as of 10/23/2024 - furosemide (LASIX) 20 mg tablet Take 1 tablet by mouth once daily. - verapamil ER 180 mg 24 hr capsule Take 1 capsule by mouth two times a day. - HYDROcodone-acetamin ophen (NORCO) 5-325 mg per tablet Take 1 tablet by mouth two times a day as needed for pain for up to 30 days. - predniSONE (DELTASONE) 10 mg tablet Take 1.5 tablets by mouth every other day. - apixaban (ELIQUIS) 5 mg tab(s) Take 5 mg by mouth two times a day. - carvedilol (COREG) 6.25 mg tablet Take 6.25 mg by mouth two times a day with meals. - dronedarone (MULTAQ) 400 mg tab Take 400 mg by mouth two times a day with meals. - levoFLOXacin (LEVAQUIN) 500 mg tablet Take 500 mg by mouth once daily. - nicotine (NICODERM) 14 mg/24 hr Apply 1 patch as directed every 24 hours. - busPIRone (BUSPAR) 10 mg tablet Take 1 tablet by mouth two times a day. - ipratropium-albutero l (DUONEB) 0.5 mg-3 mg(2.5 mg base)/3 mL nebu inhale 1 ampule via nebulizer every 4 hours if needed for wheezing. Use over 5 to 15 minutes - nystatin (MYCOSTATIN) 100,000 unit/mL suspension Take 5 mL by mouth four times daily. 1tsp swish in mouth for several minutes, then swallow (or expectorate) 4 times daily until gone. - sertraline (ZOLOFT) 100 mg tablet Take 2 tablets by mouth once daily. - Cholecalciferol, Vitamin D3, 50 mcg (2,000 [...] 1 capsule as instructed once daily. - albuterol HFA (VENTOLIN HFA) 90 mcg/actuation inhaler Inhale 2 Puffs as instructed every 4 hours as needed. - fluticasone-salmeter ol (ADVAIR DISKUS) 500-50 mcg/dose [...] directed. Dx: COPD J44.9 - [facility] Mask and supplies as needed - PULSE OXIMETER [facility] Use as directed to check oxygen saturation level - ammonium lactate (AMLACTIN) 12 % lotion Apply 1 application to affected area as needed for Dry Skin. - losartan (COZAAR) 50 mg tablet Take 0.5 tablets by mouth once daily. - OXYGEN, HOME THERAPY, 2.5 L/min (more content not included)... Normal [facility] 10-20-2024 CNPN Telephone (FAMPWS) DENIA GONZALEZ ([id number]) 1955 F Date Time Provider Department 10/20/24 YOSEPH FALL [facility] During your visit today, we recorded the following information about you: Padmini Abbott RN 10/20/2024 3:50 PM Signed Patient's daughter Sinan Gonzalez calling in, with patient speaking in the background. Reports both of patient's feet have been very swollen for about 3 days now and asking if Dr. Fall will order pt a water pill. Swelling goes up into each ankle area. She has tried contacting [facility] over the past couple of days and no response, however daughter states she did not leave a message with them, only tried calling. Patient states she will lay on couch and elevate feet this afternoon. Denies any increased shortness of breath. Wears continuous 3L oxygen and SpO2 is 96%. Heart rate 93. Denies chest pain, nausea or dizziness. States she does get anxious at times and will experience mild chest tightness at times. Please call daughter with reply, . KAREN Robledo Mark D, MD 10/20/2024 4:21 PM Signed OK to start Lasix 20 mg daily as ordered to help with the swelling MD Zaki Chopra Kathryn, MA 10/20/2024 4:28 PM Signed Message left for Sinan to call back. JOS Sandy Sherrie, RN 10/20/2024 4:47 PM Signed Daughter returned call and given provider's message below. Padmini Abbott RN Allergies As of Date: 10/20/2024 (No Known Allergies) Date Reviewed: 10/17/2024 Reviewed by: Naima Haines MA - Fully Assessed Reason for Visit: Patient Update [1234] Medication Request [138] Order(s):furosemide (LASIX) 20 mg tabletTake 1 tablet by mouth once daily.Disp: 30 tabletRfl: 2 Prescriptions as of 10/20/2024 - furosemide (LASIX) 20 mg tablet Take 1 tablet by mouth once daily. - verapamil ER 180 mg 24 hr capsule Take 1 capsule by mouth two times a day. - HYDROcodone-acetamin ophen (NORCO) 5-325 mg per tablet Take 1 tablet by mouth two times a day as needed for pain for up to 30 days. - predniSONE (DELTASONE) 10 mg tablet Take 1.5 tablets by mouth every other day. - apixaban (ELIQUIS) 5 mg tab(s) Take 5 mg by mouth two times a day. - carvedilol (COREG) 6.25 mg tablet Take 6.25 mg by mouth two times a day with meals. - dronedarone (MULTAQ) 400 mg tab Take 400 mg by mouth two times a day with meals. - levoFLOXacin (LEVAQUIN) 500 mg tablet Take 500 mg by mouth once daily. - nicotine (NICODERM) 14 mg/24 hr Apply 1 patch as directed every 24 hours. - busPIRone (BUSPAR) 10 mg tablet Take 1 tablet by mouth two times a day. - ipratropium-albutero l (DUONEB) 0.5 mg-3 mg(2.5 mg base)/3 mL nebu inhale 1 ampule via nebulizer every 4 hours if needed for wheezing. Use over 5 to 15 minutes - nystatin (MYCOSTATIN) 100,000 unit/mL suspension Take 5 mL by mouth four times daily. 1tsp swish in mouth for several minutes, then swallow (or expectorate) 4 times daily until gone. - sertraline (ZOLOFT) 100 mg tablet Take 2 tablets by mouth once daily. - Cholecalciferol, Vitamin D3, 50 mcg (2,000 [...] 1 capsule as instructed once daily. - albuterol HFA (VENTOLIN HFA) 90 mcg/actuation inhaler Inhale 2 Puffs as instructed every 4 hours as needed. - fluticasone-salmeter ol (ADVAIR DISKUS) 500-50 mcg/dose [...] directed. Dx: COPD J44.9 - Nebulizer Accessories [facility] Mask and supplies as needed - PULSE OXIMETER [facility] Use as directed to check oxygen saturation level - ammonium lactate (AMLACTIN) 12 % lotion Apply 1 application to affected area as needed for Dry Skin. - losartan (COZAAR) 50 mg tablet Take 0.5 tablets by mouth once daily. - OXYGEN, HOME THERAPY, 2.5 L/min by Nasal Cannula route continuous. Use as directred - Disposable Gloves (DISPOSABLE LATEX-FREE GLOVES) [facility] Box once every month. ICD 10: M15.9, J44.9, M54.40 - Incontinence Pad, Liner, Disp (POISE PADS) pads Use pads as directed. Dx: N39.46 - COMPOUNDED PRESCRIPTION BLOOD PRESSURE CUFF FOR HOME USE. DX: HYPERTENSION I10. AUTOMATIC CUFF. - (more content not included)... Normal [facility] ([id number]) 1955 F Date Time Provider Department 10[facility]19[facility] your visit today, we recorded the following information about you: Martínez Louie, RN 10/19/2024 1:07 PM Signed Monae- nurse- [facility]- reports she saw patient today. Noted pt had mild non pitting edema in ankles and feet. Pt did report she ate clam chowder the night before. Reports pt has wheezing in upper lobes, otherwise LCTA. Pt wears 3LO2. Reports patient has chronic COPD, chronic pain and anxiety. Monae discussed palliative care with patient and states pt is agreeable to referral to speak with palliative just to get information. Monae does not need call back. Asking pcp to place referral to palliative care. Yoseph Fall MD 10/20/2024 9:25 AM Signed Noted Palliative Care consult ordered Yoseph Fall MD Allergies As of Date: 10/19/2024 (No Known Allergies) Date Reviewed: 10/17/2024 Reviewed by: Naima Haines MA - Fully Assessed Reason for Visit: Patient Update [1234] Primary Visit Diagnosis:Stage 3 severe COPD by GOLD classification (HCC) [J44.9] Other Visit Diagnoses:Generalize d osteoarthrosis, involving multiple sites [M15.9] Generalized anxiety disorder [F41.1] Chronic low back pain with sciatica, sciatica laterality unspecified, unspecified back pain laterality [M54.40, G89.29] Order(s):CONSULT TO PALLIATIVE CARE [2401120] Order #: [id number]: 1 FUTURE Prescriptions as of 10/20/2024 - verapamil ER 180 mg 24 hr capsule Take 1 capsule by mouth two times a day. - HYDROcodone-acetamin ophen (NORCO) 5-325 mg per tablet Take 1 tablet by mouth two times a day as needed for pain for up to 30 days. - predniSONE (DELTASONE) 10 mg tablet Take 1.5 tablets by mouth every other day. - apixaban (ELIQUIS) 5 mg tab(s) Take 5 mg by mouth two times a day. - carvedilol (COREG) 6.25 mg tablet Take 6.25 mg by mouth two times a day with meals. - dronedarone (MULTAQ) 400 mg tab Take 400 mg by mouth two times a day with meals. - levoFLOXacin (LEVAQUIN) 500 mg tablet Take 500 mg by mouth once daily. - nicotine (NICODERM) 14 mg/24 hr Apply 1 patch as directed every 24 hours. - busPIRone (BUSPAR) 10 mg tablet Take 1 tablet by mouth two times a day. - ipratropium-albutero l (DUONEB) 0.5 mg-3 mg(2.5 mg base)/3 mL nebu inhale 1 ampule via nebulizer every 4 hours if needed for wheezing. Use over 5 to 15 minutes - nystatin (MYCOSTATIN) 100,000 unit/mL suspension Take 5 mL by mouth four times daily. 1tsp swish in mouth for several minutes, then swallow (or expectorate) 4 times daily until gone. - sertraline (ZOLOFT) 100 mg tablet Take 2 tablets by mouth once daily. - Cholecalciferol, Vitamin D3, 50 mcg (2,000 [...] 1 capsule as instructed once daily. - albuterol HFA (VENTOLIN HFA) 90 mcg/actuation inhaler Inhale 2 Puffs as instructed every 4 hours as needed. - fluticasone-salmeter ol (ADVAIR DISKUS) 500-50 mcg/dose [...] directed. Dx: COPD J44.9 - Nebulizer Accessories [facility] Mask and supplies as needed - PULSE OXIMETER [facility] Use as directed to check oxygen saturation level - ammonium lactate (AMLACTIN) 12 % lotion Apply 1 application to affected area as needed for Dry Skin. - losartan (COZAAR) 50 mg tablet Take 0.5 tablets by mouth once daily. - OXYGEN, HOME THERAPY, 2.5 L/min by Nasal Cannula route continuous. Use as directred - Disposable Gloves (DISPOSABLE LATEX-FREE GLOVES) [facility] Box once every month. ICD 10: [...] be starting Problem List As Of Date 10/19/2024 Noted Resolved Other and unspecified alcohol dependence, unspe* 08/11/2018 LUNG CANCER [C34.1 (more content not included)... Normal [facility]18-20[facility] ([id number]) 1955 F Date Time Provider Department 10/18/24 YOSEPH FALL During your visit today, we recorded the following information about you: Judy Bliss RN 10/18/2024 10:51 AM Signed Vilma OT calling from [facility] to report plan of care for patient and occupational therapy will visit patient 1 time a week for 3 weeks. Occupational therapy will work with patient on equipment training safety. Patient asking if it ok to take tylenol, GasX, and dulcolax? Please call back patient with answer. Vilma asking for a SW consult so she can get Breanna to see patient to help with palliative care? Patient states that she has daily panic attacks due to her new diagnosis. Patient was asking about Xanax. Please review and Advise, KAREN Werner Stephanie, RN 10/19/2024 1:08 PM Signed Mercedez ZHENG calling from [facility] to report plan of care for patient and physical therapy will visit patient 1 times a week for first week, 2 times a week for 4 weeks, and 1 time a week for 3 weeks. Physical therapy will work with patient on strength, gait transfers, and balance. No call back needed unless Questions KAREN Werner Mark D, MD 10/20/2024 9:14 AM Signed Noted and agree Yoseph Fall MD Allergies As of Date: 10/18/2024 (No Known Allergies) Date Reviewed: 10/17/2024 Reviewed by: Naima Haines MA - Fully Assessed Reason for Visit: Orders [681] Occupation Therapy Plan of care [Other] Cmt: SW Consult Physical Therapy Plan of Care [Other] Prescriptions as of 10/20/2024 - verapamil ER 180 mg 24 hr capsule Take 1 capsule by mouth two times a day. - HYDROcodone-acetamin ophen (NORCO) 5-325 mg per tablet Take 1 tablet by mouth two times a day as needed for pain for up to 30 days. - predniSONE (DELTASONE) 10 mg tablet Take 1.5 tablets by mouth every other day. - apixaban (ELIQUIS) 5 mg tab(s) Take 5 mg by mouth two times a day. - carvedilol (COREG) 6.25 mg tablet Take 6.25 mg by mouth two times a day with meals. - dronedarone (MULTAQ) 400 mg tab Take 400 mg by mouth two times a day with meals. - levoFLOXacin (LEVAQUIN) 500 mg tablet Take 500 mg by mouth once daily. - nicotine (NICODERM) 14 mg/24 hr Apply 1 patch as directed every 24 hours. - busPIRone (BUSPAR) 10 mg tablet Take 1 tablet by mouth two times a day. - ipratropium-albutero l (DUONEB) 0.5 mg-3 mg(2.5 mg base)/3 mL nebu inhale 1 ampule via nebulizer every 4 hours if needed for wheezing. Use over 5 to 15 minutes - nystatin (MYCOSTATIN) 100,000 unit/mL suspension Take 5 mL by mouth four times daily. 1tsp swish in mouth for several minutes, then swallow (or expectorate) 4 times daily until gone. - sertraline (ZOLOFT) 100 mg tablet Take 2 tablets by mouth once daily. - Cholecalciferol, Vitamin D3, 50 mcg (2,000 [...] 1 capsule as instructed once daily. - albuterol HFA (VENTOLIN HFA) 90 mcg/actuation inhaler Inhale 2 Puffs as instructed every 4 hours as needed. - fluticasone-salmeter ol (ADVAIR DISKUS) 500-50 mcg/dose [...] directed. Dx: COPD J44.9 - Nebulizer [facility] Mask and supplies as needed - PULSE OXIMETER [facility] Use as directed to check oxygen saturation level - ammonium lactate (AMLACTIN) 12 % lotion Apply 1 application to affected area as needed for Dry Skin. - losartan (COZAAR) 50 mg tablet Take 0.5 tablets by mouth once daily. - OXYGEN, HOME THERAPY, 2.5 L/min by Nasal Cannula route continuous. Use as directred - Disposable Gloves (DISPOSABLE LATEX-FREE GLOVES) [facility] Box once every month. ICD 10: [...] be starting Problem List As Of Date 10/18/2024 (more content not included)... [facility]ALE[facility] ([id number]) 1955 F Date Time Provider Department 10/13/24 [facility] During your visit today, we recorded the following information about you: Judy Bliss RN 10/13/2024 4:40 PM Signed Edda from [facility] calls and states that they were supposed to do a PT evaluation this week, however, they are still waiting on insurance. Edda asking for delay care order. Please review and advise, KAREN Werner Mark D, MD 10/13/2024 4:49 PM Signed OK for delay of care order as requested MD Zaki Chopra Kathryn, MA 10/13/2024 4:52 PM Signed Edda notified. Niama Haines MA Allergies As of Date: 10/13/2024 (No Known Allergies) Date Reviewed: 07/06/2024 Reviewed by: Sanjana Baca MA - Fully Assessed Reason for Visit: PT Delay in Care Order [Other] Prescriptions as of 10/13/2024 - HYDROcodone-acetamin ophen (NORCO) 5-325 mg per tablet Take 1 tablet by mouth two times a day as needed for pain for up to 30 days. - predniSONE (DELTASONE) 10 mg tablet Take 1.5 tablets by mouth every other day. - apixaban (ELIQUIS) 5 mg tab(s) Take 5 mg by mouth two times a day. - carvedilol (COREG) 6.25 mg tablet Take 6.25 mg by mouth two times a day with meals. - dronedarone (MULTAQ) 400 mg tab Take 400 mg by mouth two times a day with meals. - levoFLOXacin (LEVAQUIN) 500 mg tablet Take 500 mg by mouth once daily. - nicotine (NICODERM) 14 mg/24 hr Apply 1 patch as directed every 24 hours. - busPIRone (BUSPAR) 10 mg tablet Take 1 tablet by mouth two times a day. - ipratropium-albutero l (DUONEB) 0.5 mg-3 mg(2.5 mg base)/3 mL nebu inhale 1 ampule via nebulizer every 4 hours if needed for wheezing. Use over 5 to 15 minutes - nystatin (MYCOSTATIN) 100,000 unit/mL suspension Take 5 mL by mouth four times daily. 1tsp swish in mouth for several minutes, then swallow (or expectorate) 4 times daily until gone. - sertraline (ZOLOFT) 100 mg tablet Take 2 tablets by mouth once daily. - Cholecalciferol, Vitamin D3, 50 mcg (2,000 [...] 1 capsule as instructed once daily. - albuterol HFA (VENTOLIN HFA) 90 mcg/actuation inhaler Inhale 2 Puffs as instructed every 4 hours as needed. - fluticasone-salmeter ol (ADVAIR DISKUS) 500-50 mcg/dose [...] directed. Dx: COPD J44.9 - Nebulizer Accessories [facility] Mask and supplies as needed - PULSE OXIMETER [facility] Use as directed to check oxygen saturation level - ammonium lactate (AMLACTIN) 12 % lotion Apply 1 application to affected area as needed for Dry Skin. - losartan (COZAAR) 50 mg tablet Take 0.5 tablets by mouth once daily. - OXYGEN, HOME THERAPY, 2.5 L/min by Nasal Cannula route continuous. Use as directred - Disposable Gloves (DISPOSABLE LATEX-FREE GLOVES) [facility] 1 Box once every month. ICD 10: [...] be starting Problem List As Of Date 10/13/2024 Noted Resolved Other and unspecified alcohol dependence, unspe* 08/11/2018 LUNG CANCER [C34.10] 04/13/2005 06/27/2016 MALIG NEOPLASM BRONCH/LUNG NOS [C34.90] 12/08/2006 DYSTHYMIC DISORDER [F34.1] TOBACCO USE DISORDER [F17.200] 08/21/2005 Stage 3 severe COPD by GOLD classification ([facility]*09/28/2005 Asthma [J45.909] GENERAL OSTEOARTHROSIS [M15.9] Essential hypertension, benign [I10] GENERALIZED ANXIETY DIS [F41.1] ABNORMAL PAP SMEAR OF CERVIX NEC AND HPV [R89.6] ESOPHAGEAL REFLUX [K21.9] 03/22/2007 Back pain [M54.9] 10/21/2010 07/15/2021 Cholelithiasis with acute cholangitis with bili*06/21/2016 06/27/2016 Constipation [K59.00] 06/21/2016 06/27/2016 Bacteremia [R78.81] 06/23/2016 06/27/2016 Splenic lesion [D73.89] 06/25/2016 Calculus of bile duct with acute (more content not included)... Normal [facility] Basic Metabolic Profile (BMP )on 10-11-2024 BUN Normal -19 [facility] Comment on above: Result Comment: Canc elled via OM: Order cancelled - Patient discharged Performed By: #### L 100.0100, L500.2500 #### [facility] [address] [place], [address] BUN/CRE Normal 10-20 [facility] Comment on above: Result Comment: Canc elled via OM: Order cancelled - Patient discharged Performed By: #### L 100.0100, L500.2500 #### [facility] [address] [place], [address] Calcium Normal 7.6-11.0 [facility] Comment on above: Result Comment: Canc elled via OM: Order cancelled - Patient discharged Performed By: #### L 100.0100, L500.2500 #### [facility] [address] [place], [address] CL Normal 98-108 [facility] Comment on above: Result Comment: Canc elled via OM: Order cancelled - Patient discharged Performed By: #### L 100.0100, L500.2500 #### [facility] [address] [place], [address] CO2 Normal 21.0-32.0 [facility] Comment on above: Result Comment: Canc elled via OM: Order cancelled - Patient discharged Performed By: #### L 100.0100, L500.2500 #### [facility] [address] [place], [address] CREAT,SERUM Normal 0.70-1.20 [facility] Comment on above: Result Comment: Canc elled via OM: Order cancelled - Patient discharged Performed By: #### L 100.0100, L500.2500 #### [facility] [address] [place], [address] eGFR Normal >60 [facility] Comment on above: Result Comment: Canc elled via OM: Order cancelled - Patient discharged Performed By: #### L 100.0100, L500.2500 #### [facility] [address] [place], [address] GAP Normal 5-15 [facility] Comment on above: Result Comment: Canc elled via OM: Order cancelled - Patient discharged Performed By: #### L 100.0100, L500.2500 #### [facility] [address] [place], [address] GLU Normal 70-99 [facility] Comment on above: Result Comment: Canc elled via OM: Order cancelled - Patient discharged Performed By: #### L 100.0100, L500.2500 #### [facility] [address] [place], [address] Potassium Normal 3.3-5.1 [facility] Comment on above: Result Comment: Canc elled via OM: Order cancelled - Patient discharged Performed By: #### L 100.0100, L500.2500 #### [facility] [address] [place], [address] Basic Metabolic Profile (BMP) Normal 133-145 [facility] Comment on above: Result Comment: Canc elled via OM: Order cancelled - Patient discharged Performed By: #### L 100.0100, L500.2500 #### [facility] [address] [place], [address] CBC W/Diff, Automatedon 09-24 Absolute Neut Normal 2.0-7.7 [facility] Comment on above: Result Comment: Canc elled via OM: Order cancelled - Patient discharged Performed By: #### L 100.0100, L500.2500 #### [facility] [address] [place], [address] HCT Normal 37-47 [facility] Comment on above: Result Comment: Canc elled via OM: Order cancelled - Patient discharged Performed By: #### L 100.0100, L500.2500 #### [facility] [address] [place], [address] HGB Normal 12.0-15.0 [facility] Comment on above: Result Comment: Canc elled via OM: Order cancelled - Patient discharged Performed By: #### L 100.0100, L500.2500 #### [facility] [address] [place], [address] MCH Normal 27.0-32.0 [facility] Comment on above: Result Comment: Canc elled via OM: Order cancelled - Patient discharged Performed By: #### L 100.0100, L500.2500 #### [facility] [address] [place], [address] MCHC Normal 32-36 [facility] Comment on above: Result Comment: Canc elled via OM: Order cancelled - Patient discharged Performed By: #### L 100.0100, L500.2500 #### [facility] [address] [place], [address] MCV Normal 81-99 [facility] Comment on above: Result Comment: Canc elled via OM: Order cancelled - Patient discharged Performed By: #### L 100.0100, L500.2500 #### [facility] [address] [place], [address] NEUT% Normal 47-70 [facility] Comment on above: Result Comment: Canc elled via OM: Order cancelled - Patient discharged Performed By: #### L 100.0100, L500.2500 #### [facility] [address] [place], [address] PLT Normal 150-450 [facility] Comment on above: Result Comment: Canc elled via OM: Order cancelled - Patient discharged Performed By: #### L 100.0100, L500.2500 #### [facility] [address] [place], [address] RBC Normal 4.2-5.4 [facility] Comment on above: Result Comment: Canc elled via OM: Order cancelled - Patient discharged Performed By: #### L 100.0100, L500.2500 #### [facility] [address] [place], [address] RDW CV Normal 11.6-14.6 [facility] Comment on above: Result Comment: Canc elled via OM: Order cancelled - Patient discharged Performed By: #### L 100.0100, L500.2500 #### [facility] [address] [place], [address] RDW SD Normal 35.1-43.9 [facility] Comment on above: Result Comment: Canc elled via OM: Order cancelled - Patient discharged Performed By: #### L 100.0100, L500.2500 #### [facility] [address] [place], [address] WBC Normal 4.4-11.0 [facility] Comment on above: Result Comment: Canc elled via OM: Order cancelled - Patient discharged Performed By: #### L 100.0100, L500.2500 #### [facility] [address] [place], [address] Basic Metabolic Profile (BMP )on 10-10-2024 BUN Normal 4-19 [facility] Comment on above: Result Comment: Canc elled via OM: Order cancelled - Patient discharged Performed By: #### L 501.5200 #### [facility] [address] [place], [address] BUN/CRE Normal 10-20 [facility] Comment on above: Result Comment: Canc elled via OM: Order cancelled - Patient discharged Performed By: #### L 501.5200 #### [facility] [address] [place], [address] Calcium Normal 7.6-11.0 [facility] Comment on above: Result Comment: Canc elled via OM: Order cancelled - Patient discharged Performed By: #### L 501.5200 #### [facility] [address] [place], [address] CL Normal 98-108 [facility] Comment on above: Result Comment: Canc elled via OM: Order cancelled - Patient discharged Performed By: #### L 501.5200 #### [facility] [address] [place], [address] CO2 Normal 21.0-32.0 [facility] Comment on above: Result Comment: Canc elled via OM: Order cancelled - Patient discharged Performed By: #### L 501.5200 #### [facility] [address] [place], [address] CREAT,SERUM Normal 0.70-1.20 [facility] Comment on above: Result Comment: Canc elled via OM: Order cancelled - Patient discharged Performed By: #### L 501.5200 #### [facility] [address] [place], [address] eGFR Normal >60 [facility] Comment on above: Result Comment: Canc elled via OM: Order cancelled - Patient discharged Performed By: #### L 501.5200 #### [facility] [address] [place], [address] GAP Normal 5-15 [facility] Comment on above: Result Comment: Canc elled via OM: Order cancelled - Patient discharged Performed By: #### L 501.5200 #### [facility] [address] [place], [address] GLU Normal 70-99 [facility] Comment on above: Result Comment: Canc elled via OM: Order cancelled - Patient discharged Performed By: #### L 501.5200 #### [facility] [address] [place], [address] Potassium Normal 3.3-5.1 [facility] Comment on above: Result Comment: Canc elled via OM: Order cancelled - Patient discharged Performed By: #### L 501.5200 #### [facility] [address] [place], [address] Basic Metabolic Profile (BMP) Normal 133-145 [facility] Comment on above: Result Comment: Canc elled via OM: Order cancelled - Patient discharged Performed By: #### L 501.5200 #### [facility] [address] [place], [address] CBC W/Diff, Automatedon 06-1 Absolute Neut Normal 2.0-7.7 [facility] Comment on above: Result Comment: Canc elled via OM: Order cancelled - Patient discharged Performed By: #### L 501.5200 #### [facility] [address] [place], [address] HCT Normal 37-47 [facility] Comment on above: Result Comment: Canc elled via OM: Order cancelled - Patient discharged Performed By: #### L 501.5200 #### [facility] [address] [place], [address] HGB Normal 12.0-15.0 [facility] Comment on above: Result Comment: Canc elled via OM: Order cancelled - Patient discharged Performed By: #### L 501.5200 #### [facility] [address] [place], [address] MCH Normal 27.0-32.0 [facility] Comment on above: Result Comment: Canc elled via OM: Order cancelled - Patient discharged Performed By: #### L 501.5200 #### [facility] [address] [place], [address] MCHC Normal 32-36 [facility] Comment on above: Result Comment: Canc elled via OM: Order cancelled - Patient discharged Performed By: #### L 501.5200 #### [facility] [address] [place], [address] MCV Normal 81-99 [facility] Comment on above: Result Comment: Canc elled via OM: Order cancelled - Patient discharged Performed By: #### L 501.5200 #### [facility] [address] [place], [address] NEUT% Normal 47-70 [facility] Comment on above: Result Comment: Canc elled via OM: Order cancelled - Patient discharged Performed By: #### L 501.5200 #### [facility] [address] [place], [address] PLT Normal 150-450 [facility] Comment on above: Result Comment: Canc elled via OM: Order cancelled - Patient discharged Performed By: #### L 501.5200 #### [facility] [address] [place], [address] RBC Normal 4.2-5.4 [facility] Comment on above: Result Comment: Canc elled via OM: Order cancelled - Patient discharged Performed By: #### L 501.5200 #### [facility] [address] [place], [address] RDW CV Normal 11.6-14.6 [facility] Comment on above: Result Comment: Canc elled via OM: Order cancelled - Patient discharged Performed By: #### L 501.5200 #### [facility] [address] [place], [address] RDW SD Normal 35.1-43.9 [facility] Comment on above: Result Comment: Canc elled via OM: Order cancelled - Patient discharged Performed By: #### L 501.5200 #### [facility] [address] [place], [address] WBC Normal 4.4-11.0 [facility] Comment on above: Result Comment: Canc elled via OM: Order cancelled - Patient discharged Performed By: #### L 501.5200 #### [facility] [address] [place], [address] [facility] ([id number]) 1955 F Date Time Provider Department 10/10/24 YOSEPH FALL [facility] During your visit today, we recorded the following information about you: Martínez Louie, RN 10/10/2024 4:34 PM Signed Corbin [facility]- reports he did start of care today and nursing will see pt 2 x week for 2 weeks then 1 x week for 2 weeks. Reports pt refused SW. States she doesn't need it. Reports pt is wearing 3LO2 even though discharge states she should wear 2LO2. Rafa added tylenol prn to patient's med profile since pt states she takes it prn. Rafa reports all of patient's inhalers and nebulizer medication interact with coreg. Please advise. Pt is scheduled for hosp f/u with pcp on 10/17/24 Yoseph Fall MD 10/10/2024 4:41 PM Signed Noted OK to continue Coreg and inhalers; will monitor MD Zaki Chopra Kathryn, MA 10/10/2024 4:46 PM Signed Detailed message left on Rafa's identified VM. Naima Haines MA Allergies As of Date: 10/10/2024 (No Known Allergies) Date Reviewed: 07/06/2024 Reviewed by: Sanjana Baca MA - Fully Assessed Reason for Visit: [facility] patient update [Other] Prescriptions as of 10/10/2024 - apixaban (ELIQUIS) 5 mg tab(s) Take 5 mg by mouth two times a day. - carvedilol (COREG) 6.25 mg tablet Take 6.25 mg by mouth two times a day with meals. - dronedarone (MULTAQ) 400 mg tab Take 400 mg by mouth two times a day with meals. - levoFLOXacin (LEVAQUIN) 500 mg tablet Take 500 mg by mouth once daily. - nicotine (NICODERM) 14 mg/24 hr Apply 1 patch as directed every 24 hours. - busPIRone (BUSPAR) 10 mg tablet Take 1 tablet by mouth two times a day. - HYDROcodone-acetamin ophen (NORCO) 5-325 mg per tablet Take 1 tablet by mouth two times a day as needed for pain for up to 30 days. - ipratropium-albutero l (DUONEB) 0.5 mg-3 mg(2.5 mg base)/3 mL nebu inhale 1 ampule via nebulizer every 4 hours if needed for wheezing. Use over 5 to 15 minutes - predniSONE (DELTASONE) 10 mg tablet Take 1.5 tablets by mouth every other day. - nystatin (MYCOSTATIN) 100,000 unit/mL suspension Take 5 mL by mouth four times daily. 1tsp swish in mouth for several minutes, then swallow (or expectorate) 4 times daily until gone. - sertraline (ZOLOFT) 100 mg tablet Take 2 tablets by mouth once daily. - Cholecalciferol, Vitamin D3, 50 mcg (2,000 [...] 1 capsule as instructed once daily. - albuterol HFA (VENTOLIN HFA) 90 mcg/actuation inhaler Inhale 2 Puffs as instructed every 4 hours as needed. - fluticasone-salmeter ol (ADVAIR DISKUS) 500-50 mcg/dose [...] directed. Dx: COPD J44.9 - Nebulizer Accessories [facility] Mask and supplies as needed - PULSE OXIMETER [facility] Use as directed to check oxygen saturation level - ammonium lactate (AMLACTIN) 12 % lotion Apply 1 application to affected area as needed for Dry Skin. - losartan (COZAAR) 50 mg tablet Take 0.5 tablets by mouth once daily. - OXYGEN, HOME THERAPY, 2.5 L/min by Nasal Cannula route continuous. Use as directred - Disposable Gloves (DISPOSABLE LATEX-FREE GLOVES) [facility] Box once every month. ICD 10: [...] be starting Problem List As Of Date 10/10/2024 Noted Resolved Other and unspecified alcohol dependence, unspe* 08/11/2018 LUNG CANCER [C34.10] 04/13/2005 06/27/2016 MALIG NEOPLASM BRONCH/LUNG NOS [C34.90] 12/08/2006 DYSTHYMIC DISORDER [F34.1] TOBACCO USE DISORDER [F17.200] 08/21/2005 Stage 3 severe COPD by GOLD classification (HCC*09/28/2005 Asthma [J45.909] GENERAL OSTEOARTHROSIS [M15.9] Essential hypertension, benign [I10] GENERALIZED ANXIETY DIS [F41.1] ABNORMAL PAP SMEAR OF CERVIX NEC AND HPV [ (more content not included)... Normal [facility] Absolute lymphocyte countOrd ered By: Lynne Schafer on 10-09-2024 Lymphocytes Auto (Unsp spec) [#/Vol] 0.67 10*3/uL Low 0.83-4.51 [facility] Absolute neutrophil countOrd ered By: Lynne Schafer on 10-09-2024 Neutrophils (Bld) [#/Vol] 8.4 10*3/uL High 2.0-7.7 [facility] Anion gap in Serum or Plasma Ordered By: Lynne Schafer on 10-09-2024 Anion gap [Moles/Vol] 5 mmol/L 5-15 [facility] Automated lymphocyte count a s percentage of total leukocytesOrdered By: Lynne Schafer on 10-09-2024 Lymphocytes/100 WBC Auto (Unsp spec) 6.9 % Low 19-41 [facility] BUN/creatinine ratioOrdered By: Lynne Schafer on 10-09-2024 Urea nitrogen/Creatinine [Mass ratio] 38.0 mg/mg High 10- [facility] Basic Metabolic Profile (BMP )on 10-09-2024 BUN/CRE 38.0 RATIO High 02-12 [facility] Comment on above: Performed By: #### L 501.520 #### [facility] [address] [place], [place], [id number] Calcium [Mass/Vol] 8.4 mg/dL Normal 7.6-11.0 [facility] Comment on above: Performed By: #### L 501.5200 #### [facility] [address] [place], [address] Chloride [Moles/Vol] 93 mmol/L Low 98-108 [facility] Comment on above: Performed By: #### L 501.5200 #### [facility] [address] [place], [address] CO2 [Moles/Vol] 40.4 mmol/L High 21.0-32.0 [facility] Comment on above: Performed By: #### L 501.5200 #### [facility] [address] [place], [address] Creatinine [Mass/Vol] 0.44 mg/dL Low 0.70-1.20 [facility] Comment on above: Performed By: #### L 501.5200 #### [facility] [address] [place], [address] ECRCL 63.35 ml/min Normal 50-250 [facility] Comment on above: Performed By: #### L 501.5200 #### [facility] [address] [place], [address] GAP 5 Normal 5-15 [facility] Comment on above: Performed By: #### L 501.5200 #### [facility] [address] [place], [address] GFR/1.73 sq M.predicted among non-blacks MDRD (S/P/Bld) [Vol rate/Area] 105 mL/min/{1.73_m2} Normal >60 [facility] Comment on above: Result Comment: mL/m in/1.73m2 CKD-EPI Creatinine Equation (2020) Performed By: #### L 501.5200 #### [facility] [address] [place], [address] Glucose [Mass/Vol] 113 mg/dL High 70-99 [facility] Comment on above: Performed By: #### L 501.5200 #### [facility] [address] [place], [address] Potassium [Moles/Vol] 4.9 mmol/L Normal 3.3-5.1 [facility] Comment on above: Result Comment: Hemo lysis present, Results??could be affected. ?? Performed By: #### L 501.5200 #### [facility] [address] [place], [address] Sodium [Moles/Vol] 139 mmol/L Normal 133-145 [facility] Comment on above: Performed By: #### L 501.5200 #### [facility] [address] [place], [address] Urea nitrogen [Mass/Vol] 17 mg/dL Normal 4-19 [facility] Comment on above: Performed By: #### L 501.5200 #### [facility] [address] [place], [address] Basophil percentageOrdered B y: Lynne Schafer on 10-09-2024 Basophils/100 WBC (Bld) 0.1 % 0-1 [facility] CBC W/Diff, Automatedon 09-24 Absolute Lymph 0.67 X10 3/uL Low 0.83-4.51 [facility] Comment on above: Performed By: #### L 100.0100, L500.2500 #### [facility] [address] [place], [address] Absolute Neut 8.4 X10 3/uL High 2.0-7.7 [facility] Comment on above: Performed By: #### L 100.0100, L500.2500 #### [facility] [address] [place], [address] Basophils/100 WBC (Bld) 0.1 % Normal 0-1 [facility] Comment on above: Performed By: #### L 100.0100, L500.2500 #### [facility] [address] [place], [address] Eosinophils/100 WBC (Bld) 0.0 % Normal 0-5 [facility] Comment on above: Performed By: #### L 100.0100, L500.2500 #### [facility] [address] [place], [address] Erythrocyte distribution width (RBC) [Ratio] 13.1 % Normal 11.6-14.6 [facility] Comment on above: Performed By: #### L 100.0100, L500.2500 #### [facility] [address] [place], [address] Hematocrit (Bld) [Volume fraction] 41.6 % Normal 37-47 [facility] Comment on above: Performed By: #### L 100.0100, L500.2500 #### [facility] [address] [place], [address] Hemoglobin (Bld) [Mass/Vol] 13.5 g/dL Normal 12.0-15.0 [facility] Comment on above: Performed By: #### L 100.0100, L500.2500 #### [facility] [address] [place], [address] IG% 0.800 Normal 0.0-0.9 [facility] Comment on above: Result Comment: IG% - Immature Granulocytes (promyelocytes, myelocytes and metamyelocytes) > 1% indicates that a LEFT SHIFT is Present. Performed By: #### L 100.0100, L500.2500 #### [facility] [address] [place], [address] Lymphocytes/100 WBC (Bld) 6.9 % Low 19-41 [facility] Comment on above: Performed By: #### L 100.0100, L500.2500 #### [facility] [address] [place], [address] MCH (RBC) [Entitic mass] 27.9 pg Normal 27.0-32.0 [facility] Comment on above: Performed By: #### L 100.0100, L500.2500 #### [facility] [address] [place], [address] MCHC (RBC) [Mass/Vol] 32.5 g/dL Normal 32-36 [facility] Comment on above: Performed By: #### L 100.0100, L500.2500 #### [facility] [address] [place], [address] MCV (RBC) [Entitic vol] 86.0 fL Normal 81-99 [facility] Comment on above: Performed By: #### L 100.0100, L500.2500 #### [facility] [address] [place], [address] Monocytes/100 WBC (Bld) 5.3 % Normal 0-[address] [facility] Comment on above: Performed By: #### L 100.0100, L500.2500 #### [facility] [address] [place], [address] Neutrophils/100 WBC (Bld) 86.9 % High 47-70 [facility] Comment on above: Performed By: #### L 100.0100, L500.2500 #### [facility] [address] [place], [address] Nucleated RBC (Bld) [#/Vol] 0 10*3/uL Normal 0-5 [facility] Comment on above: Performed By: #### L 100.0100, L500.2500 #### [facility] [address] [place], [address] Platelet mean volume (Bld) [Entitic vol] 10.0 fL Normal 6.2-12.0 [facility] Comment on above: Performed By: #### L 100.0100, L500.2500 #### [facility] [address] [place], [address] Platelets (Bld) [#/Vol] 181 10*3/uL Normal 150-450 [facility] Comment on above: Performed By: #### L 100.0100, L500.2500 #### [facility] [address] [place], [address] RBC (Bld) [#/Vol] 4.84 10*6/uL Normal 4.2-5.4 [facility] Comment on above: Performed By: #### L 100.0100, L500.2500 #### [facility] [address] [place], [address] RDW SD 41.1 fl Normal 35.1-43.9 [facility] Comment on above: Performed By: #### L 100.0100, L500.2500 #### [facility] [address] [place], [address] WBC (Bld) [#/Vol] 9.7 10*3/uL Normal 4.4-11.0 [facility] Comment on above: Performed By: #### L 100.0100, L500.2500 #### [facility] [address] [place], [address] CNPNon 10-09-2024 CNPN Telephone ([facility]AMPWS) DENIA GONZALEZ ([id number]) 1955 F Date Time Provider Department 10/09/24 YOSEPH FALL During your visit today, we recorded the following information about you: Clarisse Anguiano RN 10/09/2024 7:28 PM Signed Pt's significant other Mike called in and reports Pt was in the hospital for 11 days and released about an hour and a half ago. He states [facility] in [place] doesn't have the Multaq in stock, but they will get it tomorrow. He said they will have it tomorrow. Pt took BP while on phone 142/69 HR 116, she hadn't used the BP monitor in a while but said she didn't think it had been working right when she had. He doesn't know if she got both doses for today or just the morning dose. She also had Coreg ordered. He didn't know if provider wanted to to order something else. I told him I would let provider know and have him get back to them. Please call and advise. KAREN Merlos Mark D, MD 10/09/2024 7:34 PM Signed They may wait until [facility] can get the Multaq tomorrow MD Zaki Chopra Kathryn, MA 10/09/2024 7:37 PM Addendum Message left for pt or significant other Mike to call back. Please start a TCM encounter/note when pt calls back. Has appt for hospital d/c on 10/17/24. JOS Sandy Amanda, RN 10/09/2024 7:48 PM Signed Pt's significant other Mike called and is notified of providers message and instructions. He voices understanding. Pt was discharged today you can't do TCM on same day as discharge, you have to wait until at least 1 day after D/C. KAREN Merlos Kathryn, MA 10/10/2024 8:24 AM Signed TCM note started. Naima Haines MA Allergies As of Date: 10/09/2024 (No Known Allergies) Date Reviewed: 07/06/2024 Reviewed by: Sanjana Baca MA - Fully Assessed Reason for Visit: Medication Problem [65] Patient Update [1234] Prescriptions as of 10/10/2024 - apixaban (ELIQUIS) 5 mg tab(s) Take 5 mg by mouth two times a day. - carvedilol (COREG) 6.25 mg tablet Take 6.25 mg by mouth two times a day with meals. - dronedarone (MULTAQ) 400 mg tab Take 400 mg by mouth two times a day with meals. - levoFLOXacin (LEVAQUIN) 500 mg tablet Take 500 mg by mouth once daily. - nicotine (NICODERM) 14 mg/24 hr Apply 1 patch as directed every 24 hours. - busPIRone (BUSPAR) 10 mg tablet Take 1 tablet by mouth two times a day. - HYDROcodone-acetamin ophen (NORCO) 5-325 mg per tablet Take 1 tablet by mouth two times a day as needed for pain for up to 30 days. - ipratropium-albutero l (DUONEB) 0.5 mg-3 mg(2.5 mg base)/3 mL nebu inhale 1 ampule via nebulizer every 4 hours if needed for wheezing. Use over 5 to 15 minutes - predniSONE (DELTASONE) 10 mg tablet Take 1.5 tablets by mouth every other day. - nystatin (MYCOSTATIN) 100,000 unit/mL suspension Take 5 mL by mouth four times daily. 1tsp swish in mouth for several minutes, then swallow (or expectorate) 4 times daily until gone. - sertraline (ZOLOFT) 100 mg tablet Take 2 tablets by mouth once daily. - Cholecalciferol, Vitamin D3, 50 mcg (2,000 [...] 1 capsule as instructed once daily. - albuterol HFA (VENTOLIN HFA) 90 mcg/actuation inhaler Inhale 2 Puffs as instructed every 4 hours as needed. - fluticasone-salmeter ol (ADVAIR DISKUS) 500-50 mcg/dose [...] directed. Dx: COPD J44.9 - Nebulizer Accessories [facility] Mask and supplies as needed - PULSE OXIMETER [facility] Use as directed to check oxygen saturation level - ammonium lactate (AMLACTIN) 12 % lotion Apply 1 application to affected area as needed for Dry Skin. - losartan (COZAAR) 50 mg tablet Take 0.5 tablets by mouth once daily. - OXYGEN, HOME THERAPY, 2.5 L/min by Nasal Cannula route continuous. Use as directred - Disposable Gloves (DISPOSABLE LATEX-FREE GLOVES) [facility] 1 Box once every month. ICD 10: M15.9, J44.9, M54.40 - Incontinence Pad, Liner, Disp (POISE PADS) pads Use pads as directed. Dx: N39.46 - COMPOUNDED PRESCRIPTION BLOOD PRESSURE CUFF FOR HOME USE. DX: HYPERTENSION I10. AUTOMATIC CU (more content not included)... Normal [facility] CNPN Telephone (VALERIA) DENIA GONZALEZ ([id number]) 1955 F Date Time Provider Department 10/09/24 YOSEPH FALL During your visit today, we recorded the following information about you: Sukhi Marrero, RN 10/09/2024 3:10 PM Akash Valerio with [facility] calls to ask if provider will follow their HH orders for SN, PT, OT. Patient discharging home today from [facility] after being treated for COPD exacerbation and new onset A-fib. Please call Iman back at [phone]. KAREN Barney Mark D, MD 10/09/2024 3:54 PM Signed Yes, I will follow their orders for SN, PT, OT MD Zaki Chopra Kathryn, MA 10/09/2024 3:56 PM Signed Detailed message left on below's identified and confidential VM. Naima Haines MA Allergies As of Date: 10/09/2024 (No Known Allergies) Date Reviewed: 07/06/2024 Reviewed by: Sanjana Baca MA - Fully Assessed Reason for Visit: Orders [681] Prescriptions as of 10/09/2024 - busPIRone (BUSPAR) 10 mg tablet Take 1 tablet by mouth two times a day. - HYDROcodone-acetamin ophen (NORCO) 5-325 mg per tablet Take 1 tablet by mouth two times a day as needed for pain for up to 30 days. - ipratropium-albutero l (DUONEB) 0.5 mg-3 mg(2.5 mg base)/3 mL nebu inhale 1 ampule via nebulizer every 4 hours if needed for wheezing. Use over 5 to 15 minutes - predniSONE (DELTASONE) 10 mg tablet Take 1.5 tablets by mouth every other day. - nystatin (MYCOSTATIN) 100,000 unit/mL suspension Take 5 mL by mouth four times daily. 1tsp swish in mouth for several minutes, then swallow (or expectorate) 4 times daily until gone. - verapamil SR (CALAN SR) 240 mg CR tablet Take 1 tablet by mouth daily at bedtime. - sertraline (ZOLOFT) 100 mg tablet Take 2 tablets by mouth once daily. - Cholecalciferol, Vitamin D3, 50 mcg (2,000 [...] 1 capsule as instructed once daily. - albuterol HFA (VENTOLIN HFA) 90 mcg/actuation inhaler Inhale 2 Puffs as instructed every 4 hours as needed. - fluticasone-salmeter ol (ADVAIR DISKUS) 500-50 mcg/dose [...] directed. Dx: COPD J44.9 - Nebulizer Accessories [facility] Mask and supplies as needed - PULSE OXIMETER [facility] Use as directed to check oxygen saturation level - ammonium lactate (AMLACTIN) 12 % lotion Apply 1 application to affected area as needed for Dry Skin. - losartan (COZAAR) 50 mg tablet Take 0.5 tablets by mouth once daily. - OXYGEN, HOME THERAPY, 2.5 L/min by Nasal Cannula route continuous. Use as directred - Disposable Gloves (DISPOSABLE LATEX-FREE GLOVES) [facility] Box once every month. ICD 10: [...] be starting Problem List As Of Date 10/09/2024 Noted Resolved Other and unspecified alcohol dependence, [...] Chronic respiratory failure with hypoxia (HCC) *02/20/2022 Ciga (more content not included)... Normal [facility] CNPN Telephone (FAMWS) DENIA GONZALEZ ([id number]) 1955 F Date Time Provider Department 10/09/24 YOSEPH FALL [facility] During your visit today, we recorded the following information about you: Padmini Abbott RN 10/09/2024 8:40 AM Signed Palma Anguiano with [facility] calling to update provider that patient has been at [facility] since 09/29/24. KAREN Robledo Mark D, MD 10/09/2024 2:09 PM Signed Sherine Fall MD Allergies As of Date: 10/09/2024 (No Known Allergies) Date Reviewed: 07/06/2024 Reviewed by: Sanjana Baca MA - Fully Assessed Reason for Visit: Patient Update [1234] Prescriptions as of 10/09/2024 - busPIRone (BUSPAR) 10 mg tablet Take 1 tablet by mouth two times a day. - HYDROcodone-acetamin ophen (NORCO) 5-325 mg per tablet Take 1 tablet by mouth two times a day as needed for pain for up to 30 days. - ipratropium-albutero l (DUONEB) 0.5 mg-3 mg(2.5 mg base)/3 mL nebu inhale 1 ampule via nebulizer every 4 hours if needed for wheezing. Use over 5 to 15 minutes - predniSONE (DELTASONE) 10 mg tablet Take 1.5 tablets by mouth every other day. - nystatin (MYCOSTATIN) 100,000 unit/mL suspension Take 5 mL by mouth four times daily. 1tsp swish in mouth for several minutes, then swallow (or expectorate) 4 times daily until gone. - verapamil SR (CALAN SR) 240 mg CR tablet Take 1 tablet by mouth daily at bedtime. - sertraline (ZOLOFT) 100 mg tablet Take 2 tablets by mouth once daily. - Cholecalciferol, Vitamin D3, 50 mcg (2,000 [...] 1 capsule as instructed once daily. - albuterol HFA (VENTOLIN HFA) 90 mcg/actuation inhaler Inhale 2 Puffs as instructed every 4 hours as needed. - fluticasone-salmeter ol (ADVAIR DISKUS) 500-50 mcg/dose [...] directed. Dx: COPD J44.9 - Nebulizer Accessories [facility] Mask and supplies as needed - PULSE OXIMETER [facility] Use as directed to check oxygen saturation level - ammonium lactate (AMLACTIN) 12 % lotion Apply 1 application to affected area as needed for Dry Skin. - losartan (COZAAR) 50 mg tablet Take 0.5 tablets by mouth once daily. - OXYGEN, HOME THERAPY, 2.5 L/min by Nasal Cannula route continuous. Use as directred - Disposable Gloves (DISPOSABLE LATEX-FREE GLOVES) [facility] 1 Box once every month. ICD 10: [...] be starting Problem List As Of Date 10/09/2024 Noted Resolved Other and unspecified alcohol dependence, [...] chronic bronchitis with exacerbatio* Encounter Status:Closed by YOSEPH FALL on 10/09/24 Normal [facility] Carbon dioxide, total [Moles /volume] in Central venous bloodOrdered By: Lynne Schafer on 10-09-2024 CO2 [Moles/Vol] 40.4 mmol/L High 21.0-32.0 [facility] Chloride assayOrdered By: Na kathi Schafer on 10-09-2024 Chloride [Moles/Vol] 93 mmol/L Low 98-108 [facility] Discharge Instructionon 09-24 Discharge Instruction [facility] Medical Records Department [address] [place] [address] Instructions for Home/Discharge Instructions 10/09/24 1542 MR#: [id number] Acct: [id number] Name: DENIA GONZALEZ Rep #: [id number] : 1955 69 From: Alessandro Palma MD PCP: Dr. Yoseph Fall MD Status:ADM IN Discharge Instructions DC O2, CPAP, BIPAP needs Home O2 Discharge instructions: Yes Type of respiratory needs?: Oxygen Oxygen frequency: Continuous Continuous oxygen liters per minute: 2 Follow Up Care Test Results: Test results from this visit will be discussed in further detail at your follow-up appointment, if applicable. Discharge Plan Admission Admit Date/Time: 09/29/24 11:36 Primary Reason for Your Visit: Acute hypoxic hypercarbic respiratory failure, COPD exacerbation, pneumonia Attending Provider: Alessandro Palma Primary Care Provider: Yoseph Fall Consulting Providers: Dionne Porter; Jan Bolanos; Junito Madrid; Lynne Schafer Discharge Orders/Prescriptions Prescriptions: New nicotine 14 mg/24 hr Patch 24 Hour 14 mg transdermal DAILY Qty: 28 0RF verapamil 180 mg Capsule,Ext Rel. 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 omeprazole 20 MG capsule 20 mg PO DAILY Patient Comments: ACID REFLUX MEDICATION montelukast 10 MG tablet 10 mg [...] sertraline 100 MG tablet 100 mg PO BID Patient Comments: mood enhancement Oxygen, Home [Home Oxygen] 2.5 lpm NASAL PRN PRN (Reason: Dyspnea) Patient Comments: oxygen fluticasone propion-salmeterol [Advair Diskus] 1 PUFF inhaler 1 puff inhalation BID Qty: 1 0RF Patient Comments: nasal congestion Ropinirole Hcl 0.25 MG tablet 0.25 mg PO QHS Patient Comments: restless legs prednisone 10 MG tablet 15 mg PO QODAY PRN (Reason: FLARE UPS) Patient Comments: steroid for inflammation ipratropium-albutero l 3 ML solution for nebulization 3 ml inhalation Q4HWA.RT Qty: 30 0RF lorazepam 0.5 MG tablet 0.5 mg PO QHS Qty: 7 0RF nicotine (polacrilex) [Nicorette] 2 mg gum 2 mg buccal Q2H Qty: 20 0RF cholecalciferol (vitamin D3) [Vitamin D3] 50 mcg (2,000 unit) capsule 50 mcg PO DAILY ipratropium-albutero l 0.5 mg-3 mg(2.5 mg base)/3 mL solution for nebulization 3 ml inhalation Q6H PRN (Reason: shortness of breath or wheezing) Qty: 180 0RF buspirone 10 mg tablet 10 mg PO BID hydrocodone-acetamin ophen 5-325 mg tablet 1 tab PO BID PRN PRN (Reason: pain) prednisone 20 mg tablet 40 mg PO DAILY 5 Days Qty: 10 0RF Discontinued verapamil 240 MG tablet 360 mg PO DAILY Patient Comments: HEART MEDICATION Referrals / Follow Up: Yoseph Fall MD [Primary Care Provider] - Juniot Madrid MD [Med Staff - Active Staff] - Within 1 Month (Evaluation for moderate to severe aortic stenosis) Lindsay Whitehead PA [Med Staff - Adv Practice Prof] - Within 1 Week Andriy Guzmán DO [Med Staff - Active Staff] - Within 1 Month Disposition Disposition (needs filled in before D/C Order can be placed): Home Health Service 10/09/24 3505 Alessandro Palma MD CC: Dr. Dionne Porter MD; Dr. Yoseph Fall MD; Dr. Junito Madrid MD; Dr. Lynne Schafer MD; Dr. Jan Bolanos MD Signed Normal [facility] Eosinophil percentageOrdered By: Lynne Schafer on 10-09-2024 Eosinophils/100 WBC (Bld) 0.0 % 0-5 [facility] Erythrocyte distribution wid th ratioOrdered By: Lynne Schafer on 10-09-2024 Erythrocyte distribution width (RBC) [Ratio] 13.1 % 11.6-14.6 [facility] Erythrocyte distribution wid th standard deviationOrdered By: Lynne Schafer on 10-09-2024 Erythrocyte distribution width (RBC) [Ratio] 41.1 fl 35.1-43.9 [facility] Glomerular filtration rate ( GFR) estimation/1.73 sq m using serum, plasma, or whole bOrdered By: Lynne Schafer on 10-09-2024 GFR/1.73 sq M.predicted among non-blacks MDRD (S/P/Bld) [Vol rate/Area] 105 mL/min/{1.73_m2} >60 [facility] Comment on above: mL/min/1.73m2 CKD-EP I Creatinine Equation (2020) Hematocrit Auto (Bld) [Volum e fraction]Ordered By: Lynne Schafer on 10-09-2024 Hematocrit (Bld) [Volume fraction] 41.6 % 37-47 [facility] Hemoglobin measurementOrdere d By: Lynne Schafer on 10-09-2024 Hemoglobin (Bld) [Mass/Vol] 13.5 g/dL 12.0-15.0 [facility] Immature granulocytes/100 WB C Auto (Bld)Ordered By: Lynne Schafer on 10-09-2024 Immature granulocytes/100 WBC (Bld) 0.800 % 0.0-0.9 [facility] Comment on above: IG% - Immature Granu locytes (promyelocytes, myelocytes and metamyelocytes) > 1% indicates that a LEFT SHIFT is Present. MCV (mean corpuscular volume ) determinationOrdered By: Lynne Schafer on 10-09-2024 MCV (RBC) [Entitic vol] 86.0 fL 81-99 [facility] Mean corpuscular hemoglobin (MCH) determinationOrdered By: Lynne Schafer 10-09-2024 MCH (RBC) [Entitic mass] 27.9 pg 27.0-32.0 [facility] Mean corpuscular hemoglobin concentration (MCHC) determinationOrdered By: Lynne Schafer 10-09-2024 MCHC (RBC) [Mass/Vol] 32.5 g/dL 32-36 [facility] Mean platelet volume determi nationOrdered By: Lynne Schafer on 10-09-2024 Platelet mean volume (Bld) [Entitic vol] 10.0 fL 6.2-12.0 [facility] Monocyte percentageOrdered B y: Lynne Schafer on 10-09-2024 Monocytes/100 WBC (Bld) 5.3 % 0-10 [facility] Neutrophil percentageOrdered By: Lynne Schafer on 10-09-2024 Neutrophils/100 WBC (Bld) 86.9 % High 47-70 [facility] Nucleated red blood cell per centageOrdered By: Lynne Schafer on 10-09-2024 Nucleated RBC/100 WBC (Bld) [Ratio] 0 % 0-5 [facility] Platelet countOrdered By: Na kathi Schafer on 10-09-2024 Platelets (Bld) [#/Vol] 181 10*3/uL 150-450 [facility] Potassium measurement (mass/ volume)Ordered By: Lynne Schafer on 10-09-2024 Potassium (Unsp spec) [Mass/Vol] 4.9 mmol/L 3.3-5.1 [facility] Comment on above: Hemolysis present, R esults could be affected. RBC Auto (Bld) [#/Vol]Ordere d By: Lynne Schafer on 10-09-2024 RBC (Bld) [#/Vol] 4.84 10*6/uL 4.2-5.4 [facility] Serum creatinine measurement (mass/volume)Ordered By: Lynne Schafer on 10-09-2024 Creatinine [Mass/Vol] 0.44 mg/dL Low 0.70-1.20 [facility] Serum glucose measurement (m ass/volume)Ordered By: Lynne Schafer on 10-09-2024 Glucose [Mass/Vol] 113 mg/dL High 70-99 [facility] Serum or plasma calcium kadi urement (mass/volume)Ordered By: Lynne Schafer on 10-09-2024 Calcium [Mass/Vol] 8.4 mg/dL 7.6-11.0 [facility] Serum or plasma urea nitroge n measurement (mass/volume)Ordered By: Lynne Schafer on 10-09-2024 Urea nitrogen [Mass/Vol] 17 mg/dL 4-19 [facility] Sodium levelOrdered By: Lynne Schafer on 10-09-2024 Sodium [Moles/Vol] 139 mmol/L 133-145 [facility] White blood cell (WBC) count Ordered By: Lynne Schafer on 10-09-2024 WBC (Bld) [#/Vol] 9.7 10*3/uL 4.4-11.0 [facility] 12 Lead EKGon 10-08-2024 12 Lead EKG [facility] [address] [place] [address] 12 Lead EKG 10/08/24 0908 MR#: [id number] Acct: [id number] Name: DENIA GONZALEZ Rep #: [id number] : 1955 69 From: Danny Hopkins MD Attending Dr: Dr. Alessandro Palma MD Status: DIS IN Ordering Dr: Lynne Schafer MD Date: 10/08/24 Location: [facility] Sex: F C Admitted: 09/29/24 Test Reason : TACHYCARDIA Blood Pressure : */* mmHG Vent. Rate : 168 BPM Atrial Rate : * BPM P-R Int : * ms QRS Dur : 78 ms QT Int : 278 ms P-R-T Axes : * 58 85 degrees QTcB Int : 464 ms Critical Test Result: High HR Atrial fibrillation with rapid ventricular response Minimal voltage criteria for LVH, may be normal variant ( Sokolow-Martins ) Nonspecific ST abnormality Abnormal ECG When compared with ECG of 06-Oct-2024 13:31, MANUAL COMPARISON REQUIRED DATA IS UNCONFIRMED Confirmed by DANNY HOPKINS MD ([id number]), marketing editor CLARISSE RAMIREZ ([id number]) on 10/10/2024 8:27:24 AM Referred By: Confirmed By: DANNY HOPKINS MD 10/10/24826 Date Danny Hopkins MD CC: Dr. Yoseph Fall MD; Dr. Lynne Schafer MD; Dr. Alessandro Palma MD Signed Normal [facility] Basic Metabolic Profile (BMP )on 10-08-2024 BUN/CRE 34.4 RATIO High 10-20 [facility] Comment on above: Performed By: #### L 506.0400, L500.2500, L100.0100 #### [facility] [address] [place], [address] Calcium [Mass/Vol] 8.1 mg/dL Normal 7.6-11.0 [facility] Comment on above: Performed By: #### L 506.0400, L500.2500, L100.0100 #### [facility] [address] [place], [address] Chloride [Moles/Vol] 92 mmol/L Low 98-108 [facility] Comment on above: Performed By: #### L 506.0400, L500.2500, L100.0100 #### [facility] [address] [place], [address] CO2 [Moles/Vol] 38.6 mmol/L High 21.0-32.0 [facility] Comment on above: Performed By: #### L 506.0400, L500.2500, L100.0100 #### [facility] [address] [place], [address] Creatinine [Mass/Vol] 0.51 mg/dL Low 0.70-1.20 [facility] Comment on above: Performed By: #### L 506.0400, L500.2500, L100.0100 #### [facility] [address] [place], [address] ECRCL 64.27 ml/min Normal 50-250 [facility] Comment on above: Performed By: #### L 506.0400, L500.2500, L100.0100 #### [facility] [address] [place], [address] GAP 7 Normal 5-15 [facility] Comment on above: Performed By: #### L 506.0400, L500.2500, L100.0100 #### [facility] [address] [place], [address] GFR/1.73 sq M.predicted among non-blacks MDRD (S/P/Bld) [Vol rate/Area] 101 mL/min/{1.73_m2} Normal >60 [facility] Comment on above: Result Comment: mL/m in/1.73m2 CKD-EPI Creatinine Equation (2020) Performed By: #### L 506.0400, L500.2500, L100.0100 #### [facility] [address] [place], [address] Glucose [Mass/Vol] 179 mg/dL High 70-99 [facility] Comment on above: Performed By: #### L 506.0400, L500.2500, L100.0100 #### [facility] [address] [place], [address] Potassium [Moles/Vol] 4.6 mmol/L Normal 3.3-5.1 [facility] Comment on above: Performed By: #### L 506.0400, L500.2500, L100.0100 #### [facility] [address] [place], [address] Sodium [Moles/Vol] 138 mmol/L Normal 133-145 [facility] Comment on above: Performed By: #### L 506.0400, L500.2500, L100.0100 #### [facility] [address] [place], [address] Urea nitrogen [Mass/Vol] 18 mg/dL Normal 4-19 [facility] Comment on above: Performed By: #### L 506.0400, L500.2500, L100.0100 #### [facility] [address] [place], [address] CBC W/Diff, Automatedon 09-24 Absolute Lymph 0.41 X10 3/uL Low 0.83-4.51 [facility] Comment on above: Performed By: #### L 506.0400, L500.2500, L100.0100 #### [facility] [address] [place], [address] Absolute Neut 7.2 X10 3/uL Normal 2.0-7.7 [facility] Comment on above: Performed By: #### L 506.0400, L500.2500, L100.0100 #### [facility] [address] [place], [address] Basophils/100 WBC (Bld) 0.2 % Normal 0-1 [facility] Comment on above: Performed By: #### L 506.0400, L500.2500, L100.0100 #### [facility] [address] [place], [address] Eosinophils/100 WBC (Bld) 0.0 % Normal 0-5 [facility] Comment on above: Performed By: #### L 506.0400, L500.2500, L100.0100 #### [facility] [address] [place], [address] Erythrocyte distribution width (RBC) [Ratio] 13.0 % Normal 11.6-14.6 [facility] Comment on above: Performed By: #### L 506.0400, L500.2500, L100.0100 #### [facility] [address] [place], [address] Hematocrit (Bld) [Volume fraction] 41.6 % Normal 37-47 [facility] Comment on above: Performed By: #### L 506.0400, L500.2500, L100.0100 #### [facility] [address] [place], [address] Hemoglobin (Bld) [Mass/Vol] 13.2 g/dL Normal 12.0-15.0 [facility] Comment on above: Performed By: #### L 506.0400, L500.2500, L100.0100 #### [facility] [address] [place], [address] IG% 0.900 Normal 0.0-0.9 [facility] Comment on above: Result Comment: IG% - Immature Granulocytes (promyelocytes, myelocytes and metamyelocytes) > 1% indicates that a LEFT SHIFT is Present. Performed By: #### L 506.0400, L500.2500, L100.0100 #### [facility] [address], [address] Lymphocytes/100 WBC (Bld) 5.1 % Low 19-41 [facility] Comment on above: Performed By: #### L 506.0400, L500.2500, L100.0100 #### [facility] [address] [place], [address] MCH (RBC) [Entitic mass] 27.3 pg Normal 27.0-32.0 [facility] Comment on above: Performed By: #### L 506.0400, L500.2500, L100.0100 #### [facility] [address] [place], [address] MCHC (RBC) [Mass/Vol] 31.7 g/dL Low 32-36 [facility] Comment on above: Performed By: #### L 506.0400, L500.2500, L100.0100 #### [facility] [address] [place], [address] MCV (RBC) [Entitic vol] 86.1 fL Normal 81-99 [facility] Comment on above: Performed By: #### L 506.0400, L500.2500, L100.0100 #### [facility] [address] [place], [address] Monocytes/100 WBC (Bld) 4.7 % Normal 0-10 [facility] Comment on above: Performed By: #### L 506.0400, L500.2500, L100.0100 #### [facility] [address] [place], [address] Neutrophils/100 WBC (Bld) 89.1 % High 47-70 [facility] Comment on above: Performed By: #### L 506.0400, L500.2500, L100.0100 #### [facility] [address] [place], [address] Nucleated RBC (Bld) [#/Vol] 0 10*3/uL Normal 0-5 [facility] Comment on above: Performed By: #### L 506.0400, L500.2500, L100.0100 #### [facility] [address] [place], [address] Platelet mean volume (Bld) [Entitic vol] 10.0 fL Normal 6.2-12.0 [facility] Comment on above: Performed By: #### L 506.0400, L500.2500, L100.0100 #### [facility] [address] [place], [address] Platelets (Bld) [#/Vol] 168 10*3/uL Normal 150-450 [facility] Comment on above: Performed By: #### L 506.0400, L500.2500, L100.0100 #### [facility] [address] [place], [address] RBC (Bld) [#/Vol] 4.83 10*6/uL Normal 4.2-5.4 [facility] Comment on above: Performed By: #### L 506.0400, L500.2500, L100.0100 #### [facility] [address] [place], [address] RDW SD 40.7 fl Normal 35.1-43.9 [facility] Comment on above: Performed By: #### L 506.0400, L500.2500, L100.0100 #### [facility] [address] [place], [address] WBC (Bld) [#/Vol] 8.1 10*3/uL Normal 4.4-11.0 [facility] Comment on above: Performed By: #### L 506.0400, L500.2500, L100.0100 #### [facility] [address] [place], [address] Basic Metabolic Profile (BMP )on 10-07-2024 BUN/CRE 37.1 RATIO High 10-20 [facility] Comment on above: Performed By: #### L 506.0400, L500.2500, L100.0100 #### [facility] [address] [place], [address] Calcium [Mass/Vol] 8.1 mg/dL Normal 7.6-11.0 [facility] Comment on above: Performed By: #### L 506.0400, L500.2500, L100.0100 #### [facility] [address] [place], [address] Chloride [Moles/Vol] 93 mmol/L Low 98-108 [facility] Comment on above: Performed By: #### L 506.0400, L500.2500, L100.0100 #### [facility] [address] [place], [address] CO2 [Moles/Vol] 38.2 mmol/L High 21.0-32.0 [facility] Comment on above: Performed By: #### L 506.0400, L500.2500, L100.0100 #### [facility] [address] [place], [address] Creatinine [Mass/Vol] 0.50 mg/dL Low 0.70-1.20 [facility] Comment on above: Performed By: #### L 506.0400, L500.2500, L100.0100 #### [facility] [address] [place], [address] ECRCL 63.81 ml/min Normal 50-250 [facility] Comment on above: Performed By: #### L 506.0400, L500.2500, L100.0100 #### [facility] [address] [place], [address] GAP 6 Normal 5-15 [facility] Comment on above: Performed By: #### L 506.0400, L500.2500, L100.0100 #### [facility] [address] [place], [address] GFR/1.73 sq M.predicted among non-blacks MDRD (S/P/Bld) [Vol rate/Area] 101 mL/min/{1.73_m2} Normal >60 [facility] Comment on above: Result Comment: mL/m in/1.73m2 CKD-EPI Creatinine Equation (2020) Performed By: #### L 506.0400, L500.2500, L100.0100 #### [facility] [address] [place], [address] Glucose [Mass/Vol] 192 mg/dL High 70-99 [facility] Comment on above: Performed By: #### L 506.0400, L500.2500, L100.0100 #### [facility] [address] [place], [address] Potassium [Moles/Vol] 4.8 mmol/L Normal 3.3-5.1 [facility] Comment on above: Result Comment: Hemo lysis present, Results??could be affected. ?? Performed By: #### L 506.0400, L500.2500, L100.0100 #### [facility] [address] [place], [address] Sodium [Moles/Vol] 137 mmol/L Normal 133-145 [facility] Comment on above: Performed By: #### L 506.0400, L500.2500, L100.0100 #### [facility] [address] [place], [address] Urea nitrogen [Mass/Vol] 19 mg/dL Normal 4-19 [facility] Comment on above: Performed By: #### L 506.0400, L500.2500, L100.0100 #### [facility] [address] [place], [address] CBC W/Diff, Automatedon - Absolute Lymph 0.39 X10 3/uL Low 0.83-4.51 [facility] Comment on above: Performed By: #### L 506.0400, L500.2500, L100.0100 #### [facility] [address] [place], [address] Absolute Neut 8.0 X10 3/uL High 2.0-7.7 [facility] Comment on above: Performed By: #### L 506.0400, L500.2500, L100.0100 #### [facility] [address] [place], [address] Basophils/100 WBC (Bld) 0.2 % Normal 0-1 [facility] Comment on above: Performed By: #### L 506.0400, L500.2500, L100.0100 #### [facility] [address] [place], [address] Eosinophils/100 WBC (Bld) 0.0 % Normal 0-5 [facility] Comment on above: Performed By: #### L 506.0400, L500.2500, L100.0100 #### [facility] [address] [place], [address] Erythrocyte distribution width (RBC) [Ratio] 13.0 % Normal 11.6-14.6 [facility] Comment on above: Performed By: #### L 506.0400, L500.2500, L100.0100 #### [facility] [address] [place], [address] Hematocrit (Bld) [Volume fraction] 41.4 % Normal 37-47 [facility] Comment on above: Performed By: #### L 506.0400, L500.2500, L100.0100 #### [facility] [address] [place], [address] Hemoglobin (Bld) [Mass/Vol] 13.5 g/dL Normal 12.0-15.0 [facility] Comment on above: Performed By: #### L 506.0400, L500.2500, L100.0100 #### [facility] [address] [place], [address] IG% 0.900 Normal 0.0-0.9 [facility] Comment on above: Result Comment: IG% - Immature Granulocytes (promyelocytes, myelocytes and metamyelocytes) > 1% indicates that a LEFT SHIFT is Present. Performed By: #### L 506.0400, L500.2500, L100.0100 #### [facility] [address] [place], [address] Lymphocytes/100 WBC (Bld) 4.3 % Low 19-41 [facility] Comment on above: Performed By: #### L 506.0400, L500.2500, L100.0100 #### [facility] [address] [place], [address] MCH (RBC) [Entitic mass] 28.2 pg Normal 27.0-32.0 [facility] Comment on above: Performed By: #### L 506.0400, L500.2500, L100.0100 #### [facility] [address] [place], [address] MCHC (RBC) [Mass/Vol] 32.6 g/dL Normal 32-36 [facility] Comment on above: Performed By: #### L 506.0400, L500.2500, L100.0100 #### [facility] [address] [place], [address] MCV (RBC) [Entitic vol] 86.6 fL Normal 81-99 [facility] Comment on above: Performed By: #### L 506.0400, L500.2500, L100.0100 #### [facility] [address] [place], [address] Monocytes/100 WBC (Bld) 5.4 % Normal 0-10 [facility] Comment on above: Performed By: #### L 506.0400, L500.2500, L100.0100 #### [facility] [address] [place], [address] Neutrophils/100 WBC (Bld) 89.2 % High 47-70 [facility] Comment on above: Performed By: #### L 506.0400, L500.2500, L100.0100 #### [facility] [address] [place] [place], [address] Nucleated RBC (Bld) [#/Vol] 0 10*3/uL Normal 0-5 [facility] Comment on above: Performed By: #### L 506.0400, L500.2500, L100.0100 #### [facility] [address] [place], [address] Platelet mean volume (Bld) [Entitic vol] 9.9 fL Normal 6.2-12.0 [facility] Comment on above: Performed By: #### L 506.0400, L500.2500, L100.0100 #### [facility] [address] [place], [address] Platelets (Bld) [#/Vol] 176 10*3/uL Normal 150-450 [facility] Comment on above: Performed By: #### L 506.0400, L500.2500, L100.0100 #### [facility] [address] [place], [address] RBC (Bld) [#/Vol] 4.78 10*6/uL Normal 4.2-5.4 [facility] Comment on above: Performed By: #### L 506.0400, L500.2500, L100.0100 #### [facility] [address] [place], [address] RDW SD 41.1 fl Normal 35.1-43.9 [facility] Comment on above: Performed By: #### L 506.0400, L500.2500, L100.0100 #### [facility] [address] [place], [address] WBC (Bld) [#/Vol] 9.0 10*3/uL Normal 4.4-11.0 [facility] Comment on above: Performed By: #### L 506.0400, L500.2500, L100.0100 #### [facility] [address] [place], [address] Magnesiumon 10-07-2024 Magnesium [Mass/Vol] 2.5 mg/dL High 1.5-2.2 [facility] Comment on above: Performed By: #### L 501.5200 #### [facility] [address] [place], [address] Magnesium measurement (mass/ volume)Ordered By: Michael Plasencia on 10-07-2024 Magnesium (Unsp spec) [Mass/Vol] 2.5 mg/dL High 1.5-2.2 [facility] Basic Metabolic Profile (BMP )on 10-06-2024 BUN/CRE 43.8 RATIO High 10-20 [facility] Comment on above: Performed By: #### L 506.0400, L500.2500, L100.0100 #### [facility] [address] [place], [address] Calcium [Mass/Vol] 8.3 mg/dL Normal 7.6-11.0 [facility] Comment on above: Performed By: #### L 506.0400, L500.2500, L100.0100 #### [facility] [address] [place], [address] Chloride [Moles/Vol] 94 mmol/L Low 98-108 [facility] Comment on above: Performed By: #### L 506.0400, L500.2500, L100.0100 #### [facility] [address] [place], [address] CO2 [Moles/Vol] 36.3 mmol/L High 21.0-32.0 [facility] Comment on above: Performed By: #### L 506.0400, L500.2500, L100.0100 #### [facility] [address] [place], [address] Creatinine [Mass/Vol] 0.45 mg/dL Low 0.70-1.20 [facility] Comment on above: Performed By: #### L 506.0400, L500.2500, L100.0100 #### [facility] [address] [place], [address] ECRCL 63.77 ml/min Normal 50-250 [facility] Comment on above: Performed By: #### L 506.0400, L500.2500, L100.0100 #### [facility] [address] [place], [address] GAP 7 Normal 5-15 [facility] Comment on above: Performed By: #### L 506.0400, L500.2500, L100.0100 #### [facility] [address] [place], [address] GFR/1.73 sq M.predicted among non-blacks MDRD (S/P/Bld) [Vol rate/Area] 104 mL/min/{1.73_m2} Normal >60 [facility] Comment on above: Result Comment: mL/m in/1.73m2 CKD-EPI Creatinine Equation (2020) Performed By: #### L 506.0400, L500.2500, L100.0100 #### [facility] [address] [place], [address] Glucose [Mass/Vol] 168 mg/dL High 70-99 [facility] Comment on above: Performed By: #### L 506.0400, L500.2500, L100.0100 #### [facility] [address] [place], [address] Potassium [Moles/Vol] 4.5 mmol/L Normal 3.3-5.1 [facility] Comment on above: Performed By: #### L 506.0400, L500.2500, L100.0100 #### [facility] [address] [place], [address] Sodium [Moles/Vol] 137 mmol/L Normal 133-145 [facility] Comment on above: Performed By: #### L 506.0400, L500.2500, L100.0100 #### [facility] [address] [place], [address] Urea nitrogen [Mass/Vol] 20 mg/dL High 4-19 [facility] Comment on above: Performed By: #### L 506.0400, L500.2500, L100.0100 #### [facility] [address] [place], [address] CBC W/Diff, Automatedon 06-1 -2024 Absolute Lymph 0.44 X10 3/uL Low 0.83-4.51 [facility] Comment on above: Performed By: #### L 506.0400, L500.2500, L100.0100 #### [facility] [address] [place], [address] Absolute Neut 8.7 X10 3/uL High 2.0-7.7 [facility] Comment on above: Performed By: #### L 506.0400, L500.2500, L100.0100 #### [facility] [address] [place], [address] Basophils/100 WBC (Bld) 0.1 % Normal 0-1 [facility] Comment on above: Performed By: #### L 506.0400, L500.2500, L100.0100 #### [facility] [address] [place], [address] Eosinophils/100 WBC (Bld) 0.0 % Normal 0-5 [facility] Comment on above: Performed By: #### L 506.0400, L500.2500, L100.0100 #### [facility] [address] [place], [address] Erythrocyte distribution width (RBC) [Ratio] 13.0 % Normal 11.6-14.6 [facility] Comment on above: Performed By: #### L 506.0400, L500.2500, L100.0100 #### [facility] [address] [place], [address] Hematocrit (Bld) [Volume fraction] 43.5 % Normal 37-47 [facility] Comment on above: Performed By: #### L 506.0400, L500.2500, L100.0100 #### [facility] [address] [place], [address] Hemoglobin (Bld) [Mass/Vol] 14.2 g/dL Normal 12.0-15.0 [facility] Comment on above: Performed By: #### L 506.0400, L500.2500, L100.0100 #### [facility] [address] [place], [address] IG% 0.800 Normal 0.0-0.9 [facility] Comment on above: Result Comment: IG% - Immature Granulocytes (promyelocytes, myelocytes and metamyelocytes) > 1% indicates that a LEFT SHIFT is Present. Performed By: #### L 506.0400, L500.2500, L100.0100 #### [facility] [address] [place], [address] Lymphocytes/100 WBC (Bld) 4.6 % Low 19-41 [facility] Comment on above: Performed By: #### L 506.0400, L500.2500, L100.0100 #### [facility] [address] [place], [address] MCH (RBC) [Entitic mass] 27.7 pg Normal 27.0-32.0 [facility] Comment on above: Performed By: #### L 506.0400, L500.2500, L100.0100 #### [facility] [address] [place], [address] MCHC (RBC) [Mass/Vol] 32.6 g/dL Normal 32-36 [facility] Comment on above: Performed By: #### L 506.0400, L500.2500, L100.0100 #### [facility] [address] [place], [address] MCV (RBC) [Entitic vol] 84.8 fL Normal 81-[address] [facility] Comment on above: Performed By: #### L 506.0400, L500.2500, L100.0100 #### [facility] [address] [place], [address] Monocytes/100 WBC (Bld) 3.9 % Normal 0-[address] [facility] Comment on above: Performed By: #### L 506.0400, L500.2500, L100.0100 #### [facility] [address] [place], [address] Neutrophils/100 WBC (Bld) 90.6 % High 47-70 [facility] Comment on above: Performed By: #### L 506.0400, L500.2500, L100.0100 #### [facility] [address] [place], [address] Nucleated RBC (Bld) [#/Vol] 0 10*3/uL Normal 0-5 [facility] Comment on above: Performed By: #### L 506.0400, L500.2500, L100.0100 #### [facility] [address] [place], [address] Platelet mean volume (Bld) [Entitic vol] 10.2 fL Normal 6.2-12.0 [facility] Comment on above: Performed By: #### L 506.0400, L500.2500, L100.0100 #### [facility] [address] [place], [address] Platelets (Bld) [#/Vol] 176 10*3/uL Normal 150-450 [facility] Comment on above: Performed By: #### L 506.0400, L500.2500, L100.0100 #### [facility] [address] [place], [address] RBC (Bld) [#/Vol] 5.13 10*6/uL Normal 4.2-5.4 [facility] Comment on above: Performed By: #### L 506.0400, L500.2500, L100.0100 #### [facility] [address] [place], [address] RDW SD 40.3 fl Normal 35.1-43.9 [facility] Comment on above: Performed By: #### L 506.0400, L500.2500, L100.0100 #### [facility] [address] [place], [address] WBC (Bld) [#/Vol] 9.7 10*3/uL Normal 4.4-11.0 [facility] Comment on above: Performed By: #### L 506.0400, L500.2500, L100.0100 #### [facility] [address] [place], [address] Basic Metabolic Profile (BMP )on 10-05-2024 BUN/CRE 44.0 RATIO High 10-20 [facility] Comment on above: Performed By: #### L 501.5200 #### [facility] [address] [place], [address] Calcium [Mass/Vol] 8.5 mg/dL Normal 7.6-11.0 [facility] Comment on above: Performed By: #### L 501.5200 #### [facility] [address] [place], [address] Chloride [Moles/Vol] 94 mmol/L Low 98-108 [facility] Comment on above: Performed By: #### L 501.5200 #### [facility] [address] [place], [address] CO2 [Moles/Vol] 36.3 mmol/L High 21.0-32.0 [facility] Comment on above: Performed By: #### L 501.5200 #### [facility] [address] [place], [address] Creatinine [Mass/Vol] 0.52 mg/dL Low 0.70-1.20 [facility] Comment on above: Performed By: #### L 501.5200 #### [facility] [address] [place], [address] ECRCL 64.35 ml/min Normal 50-250 [facility] Comment on above: Performed By: #### L 501.5200 #### [facility] [address] [place], [address] GAP 6 Normal 5-15 [facility] Comment on above: Performed By: #### L 501.5200 #### [facility] [address] [place], [address] GFR/1.73 sq M.predicted among non-blacks MDRD (S/P/Bld) [Vol rate/Area] 101 mL/min/{1.73_m2} Normal >60 [facility] Comment on above: Result Comment: mL/m in/1.73m2 CKD-EPI Creatinine Equation (2020) Performed By: #### L 501.5200 #### [facility] [address] [place], [address] Glucose [Mass/Vol] 130 mg/dL High 70-99 [facility] Comment on above: Performed By: #### L 501.5200 #### [facility] [address] [place], [address] Potassium [Moles/Vol] 4.7 mmol/L Normal 3.3-5.1 [facility] Comment on above: Result Comment: Hemo lysis present, Results??could be affected. ?? Performed By: #### L 501.5200 #### [facility] [address] [place], [address] Sodium [Moles/Vol] 137 mmol/L Normal 133-145 [facility] Comment on above: Performed By: #### L 501.5200 #### [facility] [address] [place], [address] Urea nitrogen [Mass/Vol] 23 mg/dL High 4-19 [facility] Comment on above: Performed By: #### L 501.5200 #### [facility] [address] [place], [address] CBC W/Diff, Automatedon 09-24 Absolute Lymph 0.47 X10 3/uL Low 0.83-4.51 [facility] Comment on above: Performed By: #### L 501.5200 #### [facility] [address] [place], [address] Absolute Neut 8.2 X10 3/uL High 2.0-7.7 [facility] Comment on above: Performed By: #### L 501.5200 #### [facility] [address] [place], [address] Basophils/100 WBC (Bld) 0.1 % Normal 0-1 [facility] Comment on above: Performed By: #### L 501.5200 #### [facility] [address] [place], [address] Eosinophils/100 WBC (Bld) 0.0 % Normal 0-5 [facility] Comment on above: Performed By: #### L 501.0 #### [facility] [address] [place], [address] Erythrocyte distribution width (RBC) [Ratio] 12.9 % Normal 11.6-14.6 [facility] Comment on above: Performed By: #### L 501.5200 #### [facility] [address] [place], [address] Hematocrit (Bld) [Volume fraction] 41.7 % Normal 37-47 [facility] Comment on above: Performed By: #### L 501.5200 #### [facility] [address] [place], [address] Hemoglobin (Bld) [Mass/Vol] 13.7 g/dL Normal 12.0-15.0 [facility] Comment on above: Performed By: #### L 501.5200 #### [facility] [address] [place], [address] IG% 0.600 Normal 0.0-0.9 [facility] Comment on above: Result Comment: IG% - Immature Granulocytes (promyelocytes, myelocytes and metamyelocytes) > 1% indicates that a LEFT SHIFT is Present. Performed By: #### L 501.5200 #### [facility] [address] [place], [address] Lymphocytes/100 WBC (Bld) 5.2 % Low 19-41 [facility] Comment on above: Performed By: #### L 501.5200 #### [facility] [address] [place], [address] MCH (RBC) [Entitic mass] 28.0 pg Normal 27.0-32.0 [facility] Comment on above: Performed By: #### L 501.5200 #### [facility] [address] [place], [address] MCHC (RBC) [Mass/Vol] 32.9 g/dL Normal 32-36 [facility] Comment on above: Performed By: #### L 501.5200 #### [facility] [address] [place], [address] MCV (RBC) [Entitic vol] 85.3 fL Normal 81-[address] [facility] Comment on above: Performed By: #### L 501.5200 #### [facility] [address] [place], [address] Monocytes/100 WBC (Bld) 3.0 % Normal 0-[address] [facility] Comment on above: Performed By: #### L 501.5200 #### [facility] [address] [place], [address] Neutrophils/100 WBC (Bld) 91.1 % High 47-70 [facility] Comment on above: Performed By: #### L 501.5200 #### [facility] [address] [place], [address] Nucleated RBC (Bld) [#/Vol] 0 10*3/uL Normal 0-5 [facility] Comment on above: Performed By: #### L 501.5200 #### [facility] [address] [place], [address] Platelet mean volume (Bld) [Entitic vol] 10.6 fL Normal 6.2-12.0 [facility] Comment on above: Performed By: #### L 501.5200 #### [facility] [address] [place], [address] Platelets (Bld) [#/Vol] 172 10*3/uL Normal 150-450 [facility] Comment on above: Performed By: #### L 501.5200 #### [facility] [address] [place], [address] RBC (Bld) [#/Vol] 4.89 10*6/uL Normal 4.2-5.4 [facility] Comment on above: Performed By: #### L 501.5200 #### [facility] [address] [place], [address] RDW SD 39.9 fl Normal 35.1-43.9 [facility] Comment on above: Performed By: #### L 501.5200 #### [facility] [address] [place], [address] WBC (Bld) [#/Vol] 9.0 10*3/uL Normal 4.4-11.0 [facility] Comment on above: Performed By: #### L 501.5200 #### [facility] [address] [place], [address] Electrocardiogram reportOrde red By: Junito Madrid on 10-05-2024 EKG study [facility] [address] [place] [address] 12 Lead EKG 10/04/24 1439 MR#: [id number] Acct: [id number] Name: DENIA GONZALEZ Rep #:[id number] : 1955 69 From: Junito contreras MD Attending Dr: Dr. Lynne Schafer MD Status: ADM IN Ordering Dr: Lynne Schafer MD Date: 10/04/24 Location: [facility] Sex: F C Admitted: 09/29/24 Test Reason : CP Blood Pressure : */* mmHG Vent. Rate : 103 BPM Atrial Rate : 103 BPM P-R Int : 156 ms QRS Dur : 84 ms QT Int : 344 ms P-R-T Axes : 84 38 76 degrees QTcB Int : 450 ms Sinus tachycardia with Premature atrial complexes Right atrial enlargement Minimal voltage criteria for LVH, may be normal variant ( Sokolow-Martins ) Borderline ECG When compared with ECG of 02-Oct-2024 19:03, Sinus rhythm has replaced Atrial fibrillation Confirmed by Junito Madrid ([id number]), marketing editor LEORA RESTREPO ([id number]) on 10/05/2024 8:34:43 AM Referred By: Confirmed By: Junito Madrid 10/05/24 0834 Date _ Junito Madrid MD CC: Dr. Yoseph Fall MD; Dr. Lynne Schafer MD ~ Signed [facility] Work Phone: 12 Lead EKGon 10-04-2024 12 Lead EKG [facility] [address] [place] [address] 12 Lead EKG 10/04/24 1439 MR#: [id number] Acct: [id number] Name: DENIA GONZALEZ Rep #: [id number] : 1955 69 From: Junito Madrid MD Attending Dr: Dr. Lynne Schafer MD Status: AD M IN Ordering Dr: Lynne Schafer MD Date: 10/04/24 Location: [facility] Sex: F C Admitted: 09/29/24 Test Reason : CP Blood Pressure : */* mmHG Vent. Rate : 103 BPM Atrial Rate : 103 BPM P-R Int : 156 ms QRS Dur : 84 ms QT Int : 344 ms P-R-T Axes : 84 38 76 degrees QTcB Int : 450 ms Sinus tachycardia with Premature atrial complexes Right atrial enlargement Minimal voltage criteria for LVH, may be normal variant ( Sokolow-Martins ) Borderline ECG When compared with ECG of 02-Oct-2024 19:03, Sinus rhythm has replaced Atrial fibrillation Confirmed by Junito Madrid ([id number]), marketing editor LEORA RESTREPO ([id number]) on 10/05/2024 8:34:43 AM Referred By: Confirmed By: Junito Madrid 10/05/24 0834 Date Junito Madrid MD CC: Dr. Yoseph Fall MD; Dr. Lynne Schafer MD Signed Normal [facility] Basic Metabolic Profile (BMP )on 10-04-2024 BUN/CRE 36.3 RATIO High 10-20 [facility] Comment on above: Performed By: #### L 506.0400, L500.2500, L100.0100 #### [facility] [address] [place], [address] Calcium [Mass/Vol] 8.7 mg/dL Normal 7.6-11.0 [facility] Comment on above: Performed By: #### L 506.0400, L500.2500, L100.0100 #### [facility] [address] [place], [address] Chloride [Moles/Vol] 94 mmol/L Low 98-108 [facility] Comment on above: Performed By: #### L 506.0400, L500.2500, L100.0100 #### [facility] [address] [place], [address] CO2 [Moles/Vol] 35.4 mmol/L High 21.0-32.0 [facility] Comment on above: Performed By: #### L 506.0400, L500.2500, L100.0100 #### [facility] [address] [place], [address] Creatinine [Mass/Vol] 0.58 mg/dL Low 0.70-1.20 [facility] Comment on above: Performed By: #### L 506.0400, L500.2500, L100.0100 #### [facility] [address] [place], [address] ECRCL 63.56 ml/min Normal 50-250 [facility] Comment on above: Performed By: #### L 506.0400, L500.2500, L100.0100 #### [facility] [address] [place], [address] GAP 8 Normal 5-15 [facility] Comment on above: Performed By: #### L 506.0400, L500.2500, L100.0100 #### [facility] [address] [place], [address] GFR/1.73 sq M.predicted among non-blacks MDRD (S/P/Bld) [Vol rate/Area] 98 mL/min/{1.73_m2} Normal >60 [facility] Comment on above: Result Comment: mL/m in/1.73m2 CKD-EPI Creatinine Equation (2020) Performed By: #### L 506.0400, L500.2500, L100.0100 #### [facility] [address] [place], [address] Glucose [Mass/Vol] 125 mg/dL High 70-99 [facility] Comment on above: Performed By: #### L 506.0400, L500.2500, L100.0100 #### [facility] [address] [place], [address] Potassium [Moles/Vol] 4.6 mmol/L Normal 3.3-5.1 [facility] Comment on above: Performed By: #### L 506.0400, L500.2500, L100.0100 #### [facility] [address] [place], [address] Sodium [Moles/Vol] 137 mmol/L Normal 133-145 [facility] Comment on above: Performed By: #### L 506.0400, L500.2500, L100.0100 #### [facility] [address] [place], [address] Urea nitrogen [Mass/Vol] 21 mg/dL High 4-19 [facility] Comment on above: Performed By: #### L 506.0400, L500.2500, L100.0100 #### [facility] [address] [place], [address] CBC W/Diff, Automatedon -04 26-2024 Absolute Lymph 0.46 X10 3/uL Low 0.83-4.51 [facility] Comment on above: Performed By: #### L 506.0400, L500.2500, L100.0100 #### [facility] [address] [place], [address] Absolute Neut 6.5 X10 3/uL Normal 2.0-7.7 [facility] Comment on above: Performed By: #### L 506.0400, L500.2500, L100.0100 #### [facility] [address] [place], [address] Basophils/100 WBC (Bld) 0.0 % Normal 0-1 [facility] Comment on above: Performed By: #### L 506.0400, L500.2500, L100.0100 #### [facility] [address] [place], [address] Eosinophils/100 WBC (Bld) 0.0 % Normal 0-5 [facility] Comment on above: Performed By: #### L 506.0400, L500.2500, L100.0100 #### [facility] [address] [place], [address] Erythrocyte distribution width (RBC) [Ratio] 12.9 % Normal 11.6-14.6 [facility] Comment on above: Performed By: #### L 506.0400, L500.2500, L100.0100 #### [facility] [address] [place], [address] Hematocrit (Bld) [Volume fraction] 41.4 % Normal 37-47 [facility] Comment on above: Performed By: #### L 506.0400, L500.2500, L100.0100 #### [facility] [address] [place], [address] Hemoglobin (Bld) [Mass/Vol] 13.9 g/dL Normal 12.0-15.0 [facility] Comment on above: Performed By: #### L 506.0400, L500.2500, L100.0100 #### [facility] [address] [place], [address] IG% 0.600 Normal 0.0-0.9 [facility] Comment on above: Result Comment: IG% - Immature Granulocytes (promyelocytes, myelocytes and metamyelocytes) > 1% indicates that a LEFT SHIFT is Present. Performed By: #### L 506.0400, L500.2500, L100.0100 #### [facility] [address] [place], [address] Lymphocytes/100 WBC (Bld) 6.4 % Low 19-41 [facility] Comment on above: Performed By: #### L 506.0400, L500.2500, L100.0100 #### [facility] [address] [place], [address] MCH (RBC) [Entitic mass] 28.6 pg Normal 27.0-32.0 [facility] Comment on above: Performed By: #### L 506.0400, L500.2500, L100.0100 #### [facility] [address] [place], [address] MCHC (RBC) [Mass/Vol] 33.6 g/dL Normal 32-36 [facility] Comment on above: Performed By: #### L 506.0400, L500.2500, L100.0100 #### [facility] [address] [place], [address] MCV (RBC) [Entitic vol] 85.2 fL Normal 81-99 [facility] Comment on above: Performed By: #### L 506.0400, L500.2500, L100.0100 #### [facility] [address] [place], [address] Monocytes/100 WBC (Bld) 2.9 % Normal 0-[address] [facility] Comment on above: Performed By: #### L 506.0400, L500.2500, L100.0100 #### [facility] [address] [place], [address] Neutrophils/100 WBC (Bld) 90.1 % High 47-70 [facility] Comment on above: Performed By: #### L 506.0400, L500.2500, L100.0100 #### [facility] [address] [place], [address] Nucleated RBC (Bld) [#/Vol] 0 10*3/uL Normal 0-5 [facility] Comment on above: Performed By: #### L 506.0400, L500.2500, L100.0100 #### [facility] [address] [place], [address] Platelet mean volume (Bld) [Entitic vol] 9.9 fL Normal 6.2-12.0 [facility] Comment on above: Performed By: #### L 506.0400, L500.2500, L100.0100 #### [facility] [address] [place], [address] Platelets (Bld) [#/Vol] 160 10*3/uL Normal 150-450 [facility] Comment on above: Performed By: #### L 506.0400, L500.2500, L100.0100 #### [facility] [address] [place], [address] RBC (Bld) [#/Vol] 4.86 10*6/uL Normal 4.2-5.4 [facility] Comment on above: Performed By: #### L 506.0400, L500.2500, L100.0100 #### [facility] [address] [place], [address] RDW SD 39.8 fl Normal 35.1-43.9 [facility] Comment on above: Performed By: #### L 506.0400, L500.2500, L100.0100 #### [facility] [address] [place], [address] WBC (Bld) [#/Vol] 7.2 10*3/uL Normal 4.4-11.0 [facility] Comment on above: Performed By: #### L 506.0400, L500.2500, L100.0100 #### [facility] [address] [place], [address] Basic Metabolic Profile (BMP )on 10-03-2024 BUN/CRE 34.9 RATIO High 10-20 [facility] Comment on above: Performed By: #### L 506.0400, L500.2500, L100.0100 #### [facility] [address] [place], [address] Calcium [Mass/Vol] 8.8 mg/dL Normal 7.6-11.0 [facility] Comment on above: Performed By: #### L 506.0400, L500.2500, L100.0100 #### [facility] [address] [place], [address] Chloride [Moles/Vol] 93 mmol/L Low 98-108 [facility] Comment on above: Performed By: #### L 506.0400, L500.2500, L100.0100 #### [facility] [address] [place], [address] CO2 [Moles/Vol] 34.0 mmol/L High 21.0-32.0 [facility] Comment on above: Performed By: #### L 506.0400, L500.2500, L100.0100 #### [facility] [address] [place], [address] Creatinine [Mass/Vol] 0.65 mg/dL Low 0.70-1.20 [facility] Comment on above: Performed By: #### L 506.0400, L500.2500, L100.0100 #### [facility] [address] [place], [address] ECRCL 63.56 ml/min Normal 50-250 [facility] Comment on above: Performed By: #### L 506.0400, L500.2500, L100.0100 #### [facility] [address] [place], [address] GAP 9 Normal 5-15 [facility] Comment on above: Performed By: #### L 506.0400, L500.2500, L100.0100 #### [facility] [address] [place], [address] GFR/1.73 sq M.predicted among non-blacks MDRD (S/P/Bld) [Vol rate/Area] 95 mL/min/{1.73_m2} Normal >60 [facility] Comment on above: Result Comment: mL/m in/1.73m2 CKD-EPI Creatinine Equation (2020) Performed By: #### L 506.0400, L500.2500, L100.0100 #### [facility] [address] [place], [address] Glucose [Mass/Vol] 220 mg/dL High 70-99 [facility] Comment on above: Performed By: #### L 506.0400, L500.2500, L100.0100 #### [facility] [address] [place], [address] Potassium [Moles/Vol] 4.4 mmol/L Normal 3.3-5.1 [facility] Comment on above: Performed By: #### L 506.0400, L500.2500, L100.0100 #### [facility] [address] [place], [address] Sodium [Moles/Vol] 135 mmol/L Normal 133-145 [facility] Comment on above: Performed By: #### L 506.0400, L500.2500, L100.0100 #### [facility] [address] [place], [address] Urea nitrogen [Mass/Vol] 23 mg/dL High 4-19 [facility] Comment on above: Performed By: #### L 506.0400, L500.2500, L100.0100 #### [facility] [address] [place], [address] CBC W/Diff, Automatedon 06- 0-2024 Absolute Lymph 0.48 X10 3/uL Low 0.83-4.51 [facility] Comment on above: Performed By: #### L 506.0400, L500.2500, L100.0100 #### [facility] [address] [place], [address] Absolute Neut 8.5 X10 3/uL High 2.0-7.7 [facility] Comment on above: Performed By: #### L 506.0400, L500.2500, L100.0100 #### [facility] [address] [place], [address] Basophils/100 WBC (Bld) 0.1 % Normal 0-1 [facility] Comment on above: Performed By: #### L 506.0400, L500.2500, L100.0100 #### [facility] [address] [place], [address] Eosinophils/100 WBC (Bld) 0.0 % Normal 0-5 [facility] Comment on above: Performed By: #### L 506.0400, L500.2500, L100.0100 #### [facility] [address] [place], [address] Erythrocyte distribution width (RBC) [Ratio] 13.1 % Normal 11.6-14.6 [facility] Comment on above: Performed By: #### L 506.0400, L500.2500, L100.0100 #### [facility] [address] [place], [address] Hematocrit (Bld) [Volume fraction] 41.4 % Normal 37-47 [facility] Comment on above: Performed By: #### L 506.0400, L500.2500, L100.0100 #### [facility] [address] [place], [address] Hemoglobin (Bld) [Mass/Vol] 13.6 g/dL Normal 12.0-15.0 [facility] Comment on above: Performed By: #### L 506.0400, L500.2500, L100.0100 #### [facility] [address] [place], [address] IG% 0.300 Normal 0.0-0.9 [facility] Comment on above: Result Comment: IG% - Immature Granulocytes (promyelocytes, myelocytes and metamyelocytes) > 1% indicates that a LEFT SHIFT is Present. Performed By: #### L 506.0400, L500.2500, L100.0100 #### [facility] [address] [place], [address] Lymphocytes/100 WBC (Bld) 5.2 % Low 19-41 [facility] Comment on above: Performed By: #### L 506.0400, L500.2500, L100.0100 #### [facility] [address] [place], [address] MCH (RBC) [Entitic mass] 28.2 pg Normal 27.0-32.0 [facility] Comment on above: Performed By: #### L 506.0400, L500.2500, L100.0100 #### [facility] [address] [place], [address] MCHC (RBC) [Mass/Vol] 32.9 g/dL Normal 32-36 [facility] Comment on above: Performed By: #### L 506.0400, L500.2500, L100.0100 #### [facility] [address] [place], [address] MCV (RBC) [Entitic vol] 85.7 fL Normal 81-[address] [facility] Comment on above: Performed By: #### L 506.0400, L500.2500, L100.0100 #### [facility] [address] [place], [address] Monocytes/100 WBC (Bld) 1.2 % Normal 0-[address] [facility] Comment on above: Performed By: #### L 506.0400, L500.2500, L100.0100 #### [facility] [address] [place], [address] Neutrophils/100 WBC (Bld) 93.2 % High 47-70 [facility] Comment on above: Performed By: #### L 506.0400, L500.2500, L100.0100 #### [facility] [address] [place], [address] Nucleated RBC (Bld) [#/Vol] 0 10*3/uL Normal 0-5 [facility] Comment on above: Performed By: #### L 506.0400, L500.2500, L100.0100 #### [facility] [address] [place], [address] Platelet mean volume (Bld) [Entitic vol] 10.2 fL Normal 6.2-12.0 [facility] Comment on above: Performed By: #### L 506.0400, L500.2500, L100.0100 #### [facility] [address] [place], [address] Platelets (Bld) [#/Vol] 184 10*3/uL Normal 150-450 [facility] Comment on above: Performed By: #### L 506.0400, L500.2500, L100.0100 #### [facility] [address] [place], [address] RBC (Bld) [#/Vol] 4.83 10*6/uL Normal 4.2-5.4 [facility] Comment on above: Performed By: #### L 506.0400, L500.2500, L100.0100 #### [facility] [address] [place], [address] RDW SD 40.3 fl Normal 35.1-43.9 [facility] Comment on above: Performed By: #### L 506.0400, L500.2500, L100.0100 #### [facility] [address] [place], [address] WBC (Bld) [#/Vol] 9.2 10*3/uL Normal 4.4-11.0 [facility] Comment on above: Performed By: #### L 506.0400, L500.2500, L100.0100 #### [facility] [address] [place], [address] Electrocardiogram reportOrde red By: Junito Madrid on 10-03-2024 EKG study [facility] [address] [place] [address] 12 Lead EKG 10/02/24 1903 MR#: [id number] Acct: [id number] Name: DENIA GONZALEZ Rep #:[id number] : 1955 69 From: Junito contreras MD Attending Dr: Dr. Lynne Schafer MD Status: ADM IN Ordering Dr: Junito Madrid MD Date: 10/02/24 Location: [facility] Sex: F C Admitted: 09/29/24 Test Reason : CP Blood Pressure : */* mmHG Vent. Rate : 139 BPM Atrial Rate : * BPM P-R Int : * ms QRS Dur : 82 ms QT Int : 264 ms P-R-T Axes : * 47 73 degrees QTcB Int : 401 ms Atrial fibrillation with rapid ventricular response Abnormal ECG When compared with ECG of 02-Oct-2024 09:05, No significant change was found Confirmed by Junito Madrid ([id number]), marketing editor LEORA RESTREPO ([id number]) on 10/03/2024 11:08:49 AM Referred By: Confirmed By: Junito Madrid 10/03/24 1108 Date _ Junito Madrid MD CC: Dr. Yoseph Fall MD; Dr. Junito Madrid MD; Dr. Lynne Schafer MD ~ Signed [facility] Work Phone: Respiratory Cultureon 2024 RESPC Microorganism Spec Cult Stenotrophomonas maltophilia Amount Growth 2+ Pseudomonas aeruginosa Amount Growth 2+ Stenotrophomonas maltophilia: REACTION levoFLOXacin Islt MODE 0.25 S TMP SMX Islt MODE <=20 S Minocycline Islt MODE <=0.5 S Pseudomonas aeruginosa: REACTION Aztreonam Islt KB 33 S Pseudomonas aeruginosa: REACTION Amikacin Islt MODE 4 S Cefepime Islt MODE 0.5 S Ciprofloxacin Islt MODE <=0.06 S Imipenem Islt MODE 1 S levoFLOXacin Islt MODE <=0.12 S Meropenem Islt MODE 1 S Pip+Tazo Islt MODE <=4 S Tobramycin Islt MODE <=1 S Normal [facility] Comment on above: Performed By: #### L 506.0400, L500.2500, L100.0100 #### [facility] [address] [place], [address] T4 Free Directon 10-03-2024 T4 FREE DIRECT 1.20 ng/dL Normal 0.76-1.46 [facility] Comment on above: Performed By: #### L 506.0400, L500.2500, L100.0100 #### [facility] [address] [place], [address] T4 freeOrdered By: Lynne soliz on 10-03-2024 Free T4 [Mass/Vol] 1.20 ng/dL 0.76-1.46 [facility] 12 Lead EKGon 10-02-2024 12 Lead EKG [facility] [address] [place] [address] 12 Lead EKG 10/02/24 1903 MR#: [id number] Acct: [id number] Name: DENIA GONZALEZ Rep #: [id number] : 1955 69 From: Junito Madrid MD Attending Dr: Dr. Lynne Schafer MD Status: AD M IN Ordering Dr: Junito Madrid MD Date: 10/02/24 Location: [facility] Sex: F C Admitted: 09/29/24 Test Reason : CP Blood Pressure : */* mmHG Vent. Rate : 139 BPM Atrial Rate : * BPM P-R Int : * ms QRS Dur : 82 ms QT Int : 264 ms P-R-T Axes : * 47 73 degrees QTcB Int : 401 ms Atrial fibrillation with rapid ventricular response Abnormal ECG When compared with ECG of 02-Oct-2024 09:05, No significant change was found Confirmed by Junito Madrid ([id number]), marketing editor LEORA RESTREPO ([id number]) on 10/03/2024 11:08:49 AM Referred By: Confirmed By: Junito Madrid 10/03/24 1108 Date Junito Madrid MD CC: Dr. Yoseph Fall MD; Dr. Junito Madrid MD; Dr. Lynne Schafer MD Signed Normal [facility] 12 Lead EKG [facility] [address] [place] [address] 12 Lead EKG 10/02/24 0905 MR#: [id number] Acct: [id number] Name: DENIA GONZALEZ Rep #: [id number] : 1955 69 From: Junito Madrid MD Attending Dr: Dr. Lynne Schafer MD Status: AD M IN Ordering Dr: Lynne Schafer MD Date: 10/02/24 Location: [facility] Sex: F C Admitted: 09/29/24 Test Reason : CP Blood Pressure : */* mmHG Vent. Rate : 155 BPM Atrial Rate : * BPM P-R Int : * ms QRS Dur : 76 ms QT Int : 288 ms P-R-T Axes : * 50 79 degrees QTcB Int : 462 ms Critical Test Result: High HR vs, MAT Atrial fibrillation with rapid ventricular response Minimal voltage criteria for LVH, may be normal variant ( Sokolow-Martins ) Abnormal ECG When compared with ECG of 01-Oct-2024 21:29, MANUAL COMPARISON REQUIRED DATA IS UNCONFIRMED Confirmed by Junito Madrid ([id number]), marketing editor ELORA RESTREPO ([id number]) on 10/02/2024 10:43:05 AM Referred By: Confirmed By: Junito Madrid 10/02/24 104 Date Junito Madrid MD CC: Dr. Yoseph Fall MD; Dr. Lynne Schafer MD Signed Normal [facility] Basic Metabolic Profile (BMP )on 10-02-2024 BUN/CRE 42.5 RATIO High 10-20 [facility] Comment on above: Performed By: #### L 501.5200 #### [facility] [address] [place], [address] Calcium [Mass/Vol] 8.9 mg/dL Normal 7.6-11.0 [facility] Comment on above: Performed By: #### L 501.5200 #### [facility] [address] [place], [address] Chloride [Moles/Vol] 95 mmol/L Low 98-108 [facility] Comment on above: Performed By: #### L 501.5200 #### [facility] [address] [place], [address] CO2 [Moles/Vol] 34.5 mmol/L High 21.0-32.0 [facility] Comment on above: Performed By: #### L 501.5200 #### [facility] [address] [place], [address] Creatinine [Mass/Vol] 0.55 mg/dL Low 0.70-1.20 [facility] Comment on above: Performed By: #### L 501.5200 #### [facility] [address] [place], [address] ECRCL 63.64 ml/min Normal 50-250 [facility] Comment on above: Performed By: #### L 501.5200 #### [facility] [address] [place], [address] GAP 9 Normal 5-15 [facility] Comment on above: Performed By: #### L 501.5200 #### [facility] [address] [place], [address] GFR/1.73 sq M.predicted among non-blacks MDRD (S/P/Bld) [Vol rate/Area] 99 mL/min/{1.73_m2} Normal >60 [facility] Comment on above: Result Comment: mL/m in/1.73m2 CKD-EPI Creatinine Equation (2020) Performed By: #### L 501.5200 #### [facility] [address] [place], [address] Glucose [Mass/Vol] 113 mg/dL High 70-99 [facility] Comment on above: Performed By: #### L 501.5200 #### [facility] [address] [place], [address] Potassium [Moles/Vol] 4.4 mmol/L Normal 3.3-5.1 [facility] Comment on above: Performed By: #### L 501.5200 #### [facility] [address] [place], [address] Sodium [Moles/Vol] 138 mmol/L Normal 133-145 [facility] Comment on above: Performed By: #### L 501.5200 #### [facility] [address] [place], [address] Urea nitrogen [Mass/Vol] 23 mg/dL High 4-19 [facility] Comment on above: Performed By: #### L 501.5200 #### [facility] [address] [place], [address] CBC W/Diff, Automatedon 06-0 9-2024 Absolute Lymph 0.50 X10 3/uL Low 0.83-4.51 [facility] Comment on above: Performed By: #### L 501.5200 #### [facility] [address] [place], [address] Absolute Neut 7.3 X10 3/uL Normal 2.0-7.7 [facility] Comment on above: Performed By: #### L 501.5200 #### [facility] [address] [place], [address] Basophils/100 WBC (Bld) 0.1 % Normal 0-1 [facility] Comment on above: Performed By: #### L 501.5200 #### [facility] [address] [place], [address] Eosinophils/100 WBC (Bld) 0.0 % Normal 0-5 [facility] Comment on above: Performed By: #### L 501.5200 #### [facility] [address] [place], [address] Erythrocyte distribution width (RBC) [Ratio] 13.1 % Normal 11.6-14.6 [facility] Comment on above: Performed By: #### L 501.5200 #### [facility] [address] [place], [address] Hematocrit (Bld) [Volume fraction] 40.4 % Normal 37-47 [facility] Comment on above: Performed By: #### L 501.5200 #### [facility] [address] [place], [address] Hemoglobin (Bld) [Mass/Vol] 13.4 g/dL Normal 12.0-15.0 [facility] Comment on above: Performed By: #### L 501.5200 #### [facility] [address] [place], [address] IG% 0.700 Normal 0.0-0.9 [facility] Comment on above: Result Comment: IG% - Immature Granulocytes (promyelocytes, myelocytes and metamyelocytes) > 1% indicates that a LEFT SHIFT is Present. Performed By: #### L 501.5200 #### [facility] [address] [place], [address] Lymphocytes/100 WBC (Bld) 6.1 % Low 19-41 [facility] Comment on above: Performed By: #### L 501.5200 #### [facility] [address] [place], [address] MCH (RBC) [Entitic mass] 27.9 pg Normal 27.0-32.0 [facility] Comment on above: Performed By: #### L 501.5200 #### [facility] [address] [place], [address] MCHC (RBC) [Mass/Vol] 33.2 g/dL Normal 32-36 [facility] Comment on above: Performed By: #### L 501.5200 #### [facility] [address] [place], [address] MCV (RBC) [Entitic vol] 84.0 fL Normal 81-99 [facility] Comment on above: Performed By: #### L 501.5200 #### [facility] [address] [place], [address] Monocytes/100 WBC (Bld) 3.3 % Normal 0-[address] [facility] Comment on above: Performed By: #### L 501.0 #### [facility] [address] [place], [address] Neutrophils/100 WBC (Bld) 89.8 % High 47-70 [facility] Comment on above: Performed By: #### L 501.5200 #### [facility] [address] [place], [address] Nucleated RBC (Bld) [#/Vol] 0 10*3/uL Normal 0-5 [facility] Comment on above: Performed By: #### L 501.5200 #### [facility] [address] [place], [address] Platelet mean volume (Bld) [Entitic vol] 9.7 fL Normal 6.2-12.0 [facility] Comment on above: Performed By: #### L 501.5200 #### [facility] [address] [place], [address] Platelets (Bld) [#/Vol] 172 10*3/uL Normal 150-450 [facility] Comment on above: Performed By: #### L 501.5200 #### [facility] [address], [address] RBC (Bld) [#/Vol] 4.81 10*6/uL Normal 4.2-5.4 [facility] Comment on above: Performed By: #### L 501.5200 #### [facility] [address] [place], [address] RDW SD 39.8 fl Normal 35.1-43.9 [facility] Comment on above: Performed By: #### L 501.5200 #### [facility] [address] [place], [address] WBC (Bld) [#/Vol] 8.2 10*3/uL Normal 4.4-11.0 [facility] Comment on above: Performed By: #### L 501.5200 #### [facility] [address] [place], [address] Consultation - Cardiologyon 10-02-2024 Consultation - Cardiology [facility] Medical Records Department [address] [place] [address] Consultation - Cardiology 10/02/24 1000 MR#: [id number] Acct: [id number] Name: DENIA GONZALEZ Rep #: [id number] : 1955 69 From: Junito Madrid MD PCP: Dr. Yoseph Fall MD Status:ADM IN Location: [place] [address] Assessment Plan Assessment/Plan (1) Tachycardia: PLAN: Patient's rhythm appears to be multifocal atrial tachycardia. She does not have a known history of atrial fibrillation to her knowledge. However, her knowledge of her past medical history seems limited. The patient has been on verapamil long-term which would suggest that this has been MAT in the past and had been treated with verapamil. The patient has been instituted on IV amiodarone. I would have this bag infused and get her back on her p.o. verapamil will use shorter acting given her somewhat labile blood pressure and infectious process. The ideal treatment is to control the patient's respiratory status as this is driving her tachycardia. 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 And she has gram-negative rods in her sputum presumably Pseudomonas on this admission. Further treatment and evaluation per the primary service. PLAN: Plan 1. At this point in time would recommend continuing IV amiodarone until this infusion is complete. 2. Will reinstitute short acting verapamil for rate control of the presumed MAT. 3. At this point in time I do not feel that oral anticoagulation is indicated. 4. Will obtain 2D echocardiogram once we get the heart rate a little bit better controlled later today. HPI Consult Data Date of Consult: 10/02/24 HPI Narrative Reason for Consultation: Tachycardia presumed atrial fibrillation. HPI Narrative: DENIA GONZALEZ, is a 69 F who presents with respiratory insufficiency. The patient was diagnosed with pneumonia and carries a history of non-small cell carcinoma of the lung. She also has longstanding COPD and is on home oxygen therapy. The patient's BNP on admission was 518 which was within normal limits. The patient has a history of tachycardia being placed on verapamil in the past. The patient presented emergency department on September 29, 2024. She had had progressive shortness of breath and decompensation of her respiratory status despite increasing prednisone and nebulizer treatments in her home environment. She is also noted a productive cough. Patient is status post right lung lobectomy for non-small cell carcinoma. ECG on admission showed right atrial enlargement and what appears to be either sinus rhythm with frequent PACs or multifocal atrial tachycardia. Repeat ECG when her heart rate went up this morning into the 150 range appears to be multifocal atrial tachycardia or atrial fibrillation. He is very difficult to tell on the rhythm strip on her twelve-lead. The patient's struggling with her respiratory status this morning. The patient does not have a history of atrial fibrillation to her knowledge. She has not seen a specialist in a long time by her report. She has no known cardiovascular issues that she is aware of. [facility] Medical History RLS (restless legs syndrome) History of ETOH abuse Chronic hypoxic respiratory failure, on home oxygen therapy COPD (chronic obstructive pulmonary disease) Anxiety Depression Smoker Asthma Hypertension Migraines Medical History no medical history Home Medications ???Medication ???Instructions ???Recorded ???Last Taken ???Type albuterol sulfate 90 mcg/actuation 1 - 2 puff inhalation Q4H PRN ID N 04/18/13 09/23/14 History aerosol inhaler (Ventolin HFA) Bronchodialation cyclobenzaprine 10 mg tablet 10 mg PO Q12H pain 04/18/13 History 10 MG fluticasone propionate 50 1 spray intranasal DAILY nasal 09/23/14 History mcg/actuation nasal congestion spray,suspension montelukast [...] tablet,extended 360 mg PO DAILY heart 04/18/13 History release 360 MG Oxygen, Home [Home Oxygen] 2.5 lpm PRN PRN Dyspnea 10/22/13 0 09/23/14 History sertraline 100 mg tablet 100 mg PO DAILY insomina 10/22/13 09/23/14 History fluticasone 500 mcg-salmeterol 50 1 puff inhalation BID shortness o f 10/26/13 09/23/14 Rx mcg/dose blistr powdr for breath ##1 inhalation (Advair Diskus) Ro (more content not included)... Normal [facility] Echo Completeon 10-02-2024 Echo [facility] Cardi[facility] [address] [place] [address] Echo Complete 10/02/24 1337 MR#: [id number] Acct: [id number] Name: DENIA GONZALEZ Rep #: [id number] : 1955 69 From: Dillon Lopez MD Attending Dr: Dr. Lynne Schafer MD Status: AD M IN Ordering Dr: Lynne Schafer MD Date: 10/02/24 Location: [facility] Sex: F C Admitted: 09/29/24 Reason For Study Reason For Study: ATRIAL FIBRILLATION Procedure This was a 2D Doppler, Color Flow transthoracic echocardiogram. The study was technically difficult. Exam performed portable in patient room. Left Ventricle Normal LV size. Severe concentric left ventricular hypertrophy. The LV systolic function is normal. EF is 70 %. Stage 1 diastolic dysfunction. Right Ventricle Normal right ventricle. Atria The left and right atria are normal. Mitral Valve Trivial mitral valve insufficiency. Tricuspid Valve Mild tricuspid valve insufficiency. Unable to estimate RV systolic pressure due to insufficient tricuspid regurgitant envelope. Aortic Valve Severely calcified aortic valve. Severe aortic valve stenosis. Mean peak gradient 50 mmHg. Aortic valve area 0.85 cm??. Trivial aortic valve regurgitation. Pulmonic Valve The pulmonic valve is not well visualized. Great Vessels The aortic root is not well visualized. Pericardium/Pleural No pericardial effusion. MMode/2D Measurements Calculations LVIDd: 3.0 cm IVSd: 1.8 cm LVOT diam: 1.9 cm LVIDs: 1.5 cm LVPWd: 1.2 cm LVOT area: 3.0 cm2 RVDd: 3.0 cm FS: 49.3 % LAV(MOD-bp): 36.7 ml LVAd ap4: 11.7 cm2 LVAd ap2: 14.9 cm2 LAV(MOD-bp) Indexed: 21.0 ml/m2 LVLd ap4: 5.8 cm LVLd ap2: 6.5 cm LAV(MOD-sp2): 35.0 ml EDV(MOD-sp4): 19.8 ml EDV(MOD-sp2): 29.3 ml LAV(MOD-sp4): 34.3 ml EDV(sp4-el): 20.2 ml EDV(sp2-el): 29.0 ml LVAs ap4: 5.8 cm2 LVAs ap2: 5.2 cm2 LVLs ap4: 4.7 cm LVLs ap2: 5.1 cm ESV(MOD-sp4): 6.0 ml ESV(MOD-sp2): 5.4 ml ESV(sp4-el): 6.1 ml ESV(sp2-el): 4.5 ml EF(MOD-sp4): 69.5 % EF(MOD-sp2): 81.6 % EF(sp4-el): 69.8 % SV(MOD-sp4): 13.8 ml SV(MOD-sp2): 24.0 ml SV(sp4-el): 14.1 ml SI(MOD-sp4): 7.9 ml/m2 SI(MOD-sp2): 13.7 ml/m2 Ao sinus diam: 3.3 cm LA A4 area: 12.9 cm2 LA dimension(2D): 3.7 cm TAPSE: 1.9 cm RA A4 area: 8.9 cm2 Time Measurements MV dec time: 0.21 sec Doppler Measurements Calculations MV E max kaye: 127.9 cm/sec MV V2 max: 135.6 cm/sec Ao V2 max: 433.5 cm/sec MV max P.4 mmHg Ao max P.2 mmHg MV V2 mean: 114.2 cm/sec Ao V2 mean: 341.7 cm/sec MV mean P.4 mmHg Ao mean P.0 mmHg MV V2 VTI: 16.9 cm Ao V2 VTI: 71.8 cm MVA(VTI): 3.6 cm2 AV (velocity ratio): 0.28 SASHA(I,D): 0.84 cm2 SASHA(V,D): 0.85 cm2 LV V1 max: 124.0 cm/sec SV(LVOT): 60.1 ml LV V1 max P.2 mmHg LV V1 mean P.8 mmHg LV V1 mean: 93.0 cm/sec LV V1 VTI: 20.2 cm ECHO/Echo Complete Interpretation Summary Severe concentric left ventricular hypertrophy. The LV systolic function is normal. EF is 70 %. Stage 1 diastolic dysfunction. Mild tricuspid valve insufficiency. Severely calcified aortic valve. Severe aortic valve stenosis. Mean peak gradient 50 mmHg. Aortic valve area 0.85 cm??. Trivial aortic valve regurgitation. The study was technically difficult. Ordering Physician: Lynne Schafer Referring Physician: MD Eufemia Yoseph Performed By: Saray Torrez RDCS 10/02/24 1424 Date Dillon Lopez MD CC: Dr. Yoseph Fall MD; Dr. Lynne Schafer MD Date Dictated: 10/02/241336 Date Transcribed: 10/02/241423 Special Effects Makeup Artist: Signed Normal [facility] Echocardiogram study reportO rdered By: Dillon Lopez on 10-02-2024 Study report [facility] Cardiovascular Services [address] [place] [address] Echo Complete 10/02/241336 MR#: [id number] Acct: [id number] Name: DENIA GONZALEZ Rep #:[id number] : 1955 69 From: Dillon Lopez MD Attending Dr: Dr. Lynne Schafer MD Status: ADM IN Ordering Dr: Lynne Schafer MD Date: 10/02/24 Location: [facility] Sex: F C Admitted: 09/29/24 Reason For Study Reason For Study: ATRIAL FIBRILLATION Procedure This was a 2D Doppler, Color Flow transthoracic echocardiogram. The study was technically difficult. Exam performed portable in patient room. Left Ventricle Normal LV size. Severe concentric left ventricular hypertrophy. The LV systolic function is normal. EF is 70 %. Stage 1 diastolic dysfunction. Right Ventricle Normal right ventricle. Atria The left and right atria are normal. Mitral Valve Trivial mitral valve insufficiency. Tricuspid Valve Mild tricuspid valve insufficiency. Unable to estimate RV systolic pressure due to insufficient tricuspid regurgitant envelope. Aortic Valve Severely calcified aortic valve. Severe aortic valve stenosis. Mean peak gradient 50 mmHg. Aortic valve area 0.85 cm??. Trivial aortic valve regurgitation. Pulmonic Valve The pulmonic valve is not well visualized. Great Vessels The aortic root is not well visualized. Pericardium/Pleural No pericardial effusion. MMode/2D Measurements & Calculations LVIDd: 3.0 cm IVSd: 1.8 cm LVOT diam: 1.9 cm LVIDs: 1.5 cm LVPWd: 1.2 cm LVOT area: 3.0 cm2 RVDd: 3.0 cm FS: 49.3 % LAV(MOD-bp): 36.7 ml LVAd ap4: 11.7 cm2 LVAd ap2: 14.9 cm2 LAV(MOD-bp) Indexed: 21.0 ml/m2 LVLd ap4: 5.8 cm LVLd ap2: 6.5 cm LAV(MOD-sp2): 35.0 ml EDV(MOD-sp4): 19.8 ml EDV(MOD-sp2): 29.3 ml LAV(MOD-sp4): 34.3 ml EDV(sp4-el): 20.2 ml EDV(sp2-el): 29.0 ml LVAs ap4: 5.8 cm2 LVAs ap2: 5.2 cm2 LVLs ap4: 4.7 cm LVLs ap2: 5.1 cm ESV(MOD-sp4): 6.0 ml ESV(MOD-sp2): 5.4 ml ESV(sp4-el): 6.1 ml ESV(sp2-el): 4.5 ml EF(MOD-sp4): 69.5 % EF(MOD-sp2): 81.6 % EF(sp4-el): 69.8 % SV(MOD-sp4): 13.8 ml SV(MOD-sp2): 24.0 ml SV(sp4-el): 14.1 ml SI(MOD-sp4): 7.9 ml/m2 SI(MOD-sp2): 13.7 ml/m2 Ao sinus diam: 3.3 cm LA A4 area: 12.9 cm2 LA dimension(2D): 3.7 cm TAPSE: 1.9 cm RA A4 area: 8.9 cm2 Time Measurements MV dec time: 0.21 sec Doppler Measurements & Calculations MV E max kaye: 127.9 cm/sec MV V2 max: 135.6 cm/sec Ao V2 max: 433.5 cm/sec MV max P.4 mmHg Ao max P.2 mmHg MV V2 mean: 114.2 cm/sec Ao V2 mean: 341.7 cm/sec MV mean P.4 mmHg Ao mean P.0 mmHg MV V2 VTI: 16.9 cm Ao V2 VTI: 71.8 cm MVA(VTI): 3.6 cm2 AV (velocity ratio): 0.28 SASHA(I,D): 0.84 cm2 SASHA(V,D): 0.85 cm2 LV V1 max: 124.0 cm/sec SV(LVOT): 60.1 ml LV V1 max P.2 mmHg LV V1 mean P.8 mmHg LV V1 mean: 93.0 cm/sec LV V1 VTI: 20.2 cm ECHO/Echo Complete Interpretation Summary Severe concentric left ventricular hypertrophy. The LV systolic function is normal. EF is 70 %. Stage 1 diastolic dysfunction. Mild tricuspid valve insufficiency. Severely calcified aortic valve. Severe aortic valve stenosis. Mean peak gradient 50 mmHg. Aortic valve area 0.85 cm??. Trivial aortic valve regurgitation. The study was technically difficult. Ordering Physician: Lynne Schafer Referring Physician: MD Yoseph Fall Performed By: Saray Torrez [facility] 10/02/24 1424 Date _ Dillon Lopez MD CC: Dr. Yoseph Fall MD; Dr. Lynne Schafer MD ~ Date Dictated: 10/02/24 1337 Date Transcribed: 10/02/24 1424 Special Effects Makeup Artist: Signed [facility] Work Phone: Electrocardiogram reportOrde red By: Junito Madrid on 10-02-2024 EKG study [facility] [address] [place] [address] 12 Lead EKG 10/02/24 09 MR#: [id number] Acct: [id number] Name: DENIA GONZALEZ Rep #:[id number] : 1955 69 From: Junito contreras MD Attending Dr: Dr. Lynne Schafer MD Status: ADM IN Ordering Dr: Lynne Schafer MD Date: 10/02/24 Location: [facility] Sex: F C Admitted: 09/29/24 Test Reason : CP Blood Pressure : */* mmHG Vent. Rate : 155 BPM Atrial Rate : * BPM P-R Int : * ms QRS Dur : 76 ms QT Int : 288 ms P-R-T Axes : * 50 79 degrees QTcB Int : 462 ms Critical Test Result: High HR vs, MAT Atrial fibrillation with rapid ventricular response Minimal voltage criteria for LVH, may be normal variant ( Sokolow-Martins ) Abnormal ECG When compared with ECG of 01-Oct-2024 21:29, MANUAL COMPARISON REQUIRED DATA IS UNCONFIRMED Confirmed by Junito Madrid ([id number]), marketing editor LEORA RESTREPO ([id number]) on 10/02/2024 10:43:05 AM Referred By: Confirmed By: Junito Madrid 10/02/24 1043 Date _ Junito Madrid MD CC: Dr. Yoseph Fall MD; Dr. Lynne Schafer MD ~ Signed [facility] Work Phone: Gram Stainon 10-02-2024 GS Acceptable Specimen? Yes (<25 Epithelial cells per/lpf) Gram Stain 2+ Gram positive cocci 2+ Gram positive rods 2+ Gram negative rods Normal [facility] Comment on above: Performed By: #### L 506.0310, L500.2500, L100.0100 #### [facility] [address] [place], [address] L499.0042on 10-02-2024 Trop T High Sen 23 ng/L High <=14 [facility] Comment on above: Performed By: #### L 501.1074, L501.5200 #### [facility] [address] [place], [address] L499.0043on 10-02-2024 Trop T High Sen 24 ng/L High <=14 [facility] Comment on above: Performed By: #### L 501.5200 #### [facility] [address] [place], [address] L501.4021on 10-02-2024 Trop T High Sen 23 ng/L High <=14 [facility] Comment on above: Performed By: #### L 506.0400, L500.2500, L100.0100 #### [facility] [address] [place], [address] Magnesiumon 10-02-2024 Magnesium [Mass/Vol] 2.1 mg/dL Normal 1.5-2.2 [facility] Comment on above: Performed By: #### L 501.9520, L501.5200 #### [facility] [address] [place], [address] TSH DL <= 0.005 mIU/L QnOrde red By: Lynne Schafer on 10-02-2024 TSH Qn 0.281 uIU/mL Low 0.300-4.200 [facility] Thyroid Stim Hormone (TSH)on 10-02-2024 TSH 0.281 uIU/mL Low 0.300-4.200 [facility] Comment on above: Performed By: #### L 501.9520, L501.5200 #### [facility] [address] [place], [address] Troponin T.cardiac [Mass/vol ume] in Serum or Plasma by High sensitivity methodOrdered By: Lynne Schafer on 10-02-2024 Troponin T.cardiac High sensitivity method [Mass/Vol] 24 ng/L High <14 [facility] Troponin T.cardiac High sensitivity method [Mass/Vol] 23 ng/L High <14 [facility] Troponin T.cardiac High sensitivity method [Mass/Vol] 23 ng/L High <14 [facility] Basic Metabolic Profile (BMP )on 10-01-2024 BUN/CRE 35.9 RATIO High 10-20 [facility] Comment on above: Performed By: #### L 506.0400, L500.2500, L100.0100 #### [facility] [address] [place], [address] Calcium [Mass/Vol] 9.2 mg/dL Normal 7.6-11.0 [facility] Comment on above: Performed By: #### L 506.0400, L500.2500, L100.0100 #### [facility] [address] [place], [address] Chloride [Moles/Vol] 94 mmol/L Low 98-108 [facility] Comment on above: Performed By: #### L 506.0400, L500.2500, L100.0100 #### [facility] [address] [place], [address] CO2 [Moles/Vol] 34.2 mmol/L High 21.0-32.0 [facility] Comment on above: Performed By: #### L 506.0400, L500.2500, L100.0100 #### [facility] [address] [place], [address] Creatinine [Mass/Vol] 0.59 mg/dL Low 0.70-1.20 [facility] Comment on above: Performed By: #### L 506.0400, L500.2500, L100.0100 #### [facility] [address] [place], [address] ECRCL 65.06 ml/min Normal 50-250 [facility] Comment on above: Performed By: #### L 506.0400, L500.2500, L100.0100 #### [facility] [address] [place], [address] GAP 10 Normal 5-15 [facility] Comment on above: Performed By: #### L 506.0400, L500.2500, L100.0100 #### [facility] [address] [place], [address] GFR/1.73 sq M.predicted among non-blacks MDRD (S/P/Bld) [Vol rate/Area] 97 mL/min/{1.73_m2} Normal >60 [facility] Comment on above: Result Comment: mL/m in/1.73m2 CKD-EPI Creatinine Equation (2020) Performed By: #### L 506.0400, L500.2500, L100.0100 #### [facility] [address] [place], [address] Glucose [Mass/Vol] 111 mg/dL High 70-99 [facility] Comment on above: Performed By: #### L 506.0400, L500.2500, L100.0100 #### [facility] [address] [place], [address] Potassium [Moles/Vol] 4.1 mmol/L Normal 3.3-5.1 [facility] Comment on above: Performed By: #### L 506.0400, L500.2500, L100.0100 #### [facility] [address] [place], [address] Sodium [Moles/Vol] 138 mmol/L Normal 133-145 [facility] Comment on above: Performed By: #### L 506.0400, L500.2500, L100.0100 #### [facility] [address] [place], [address] Urea nitrogen [Mass/Vol] 21 mg/dL High 4-19 [facility] Comment on above: Performed By: #### L 506.0400, L500.2500, L100.0100 #### [facility] [address] [place], [address] CBC W/Diff, Automatedon 06-0 8-2024 Absolute Lymph 0.58 X10 3/uL Low 0.83-4.51 [facility] Comment on above: Performed By: #### L 506.0400, L500.2500, L100.0100 #### [facility] [address] [place], [address] Absolute Neut 7.6 X10 3/uL Normal 2.0-7.7 [facility] Comment on above: Performed By: #### L 506.0400, L500.2500, L100.0100 #### [facility] [address] [place], [address] Basophils/100 WBC (Bld) 0.1 % Normal 0-1 [facility] Comment on above: Performed By: #### L 506.0400, L500.2500, L100.0100 #### [facility] [address] [place], [address] Eosinophils/100 WBC (Bld) 0.0 % Normal 0-5 [facility] Comment on above: Performed By: #### L 506.0400, L500.2500, L100.0100 #### [facility] [address] [place], [address] Erythrocyte distribution width (RBC) [Ratio] 12.9 % Normal 11.6-14.6 [facility] Comment on above: Performed By: #### L 506.0400, L500.2500, L100.0100 #### [facility] [address] [place], [address] Hematocrit (Bld) [Volume fraction] 40.9 % Normal 37-47 [facility] Comment on above: Performed By: #### L 506.0400, L500.2500, L100.0100 #### [facility] [address] [place], [address] Hemoglobin (Bld) [Mass/Vol] 13.5 g/dL Normal 12.0-15.0 [facility] Comment on above: Performed By: #### L 506.0400, L500.2500, L100.0100 #### [facility] [address] [place], [address] IG% 0.500 Normal 0.0-0.9 [facility] Comment on above: Result Comment: IG% - Immature Granulocytes (promyelocytes, myelocytes and metamyelocytes) > 1% indicates that a LEFT SHIFT is Present. Performed By: #### L 506.0400, L500.2500, L100.0100 #### [facility] [address] [place], [address] Lymphocytes/100 WBC (Bld) 6.8 % Low 19-41 [facility] Comment on above: Performed By: #### L 506.0400, L500.2500, L100.0100 #### [facility] [address] [place], [address] MCH (RBC) [Entitic mass] 27.6 pg Normal 27.0-32.0 [facility] Comment on above: Performed By: #### L 506.0400, L500.2500, L100.0100 #### [facility] [address] [place], [address] MCHC (RBC) [Mass/Vol] 33.0 g/dL Normal 32-36 [facility] Comment on above: Performed By: #### L 506.0400, L500.2500, L100.0100 #### [facility] [address] [place], [address] MCV (RBC) [Entitic vol] 83.5 fL Normal 81-99 [facility] Comment on above: Performed By: #### L 506.0400, L500.2500, L100.0100 #### [facility] [address] [place], [address] Monocytes/100 WBC (Bld) 3.6 % Normal 0-10 [facility] Comment on above: Performed By: #### L 506.0400, L500.2500, L100.0100 #### [facility] [address] [place], [address] Neutrophils/100 WBC (Bld) 89.0 % High 47-70 [facility] Comment on above: Performed By: #### L 506.0400, L500.2500, L100.0100 #### [facility] [address] [place], [address] Nucleated RBC (Bld) [#/Vol] 0 10*3/uL Normal 0-5 [facility] Comment on above: Performed By: #### L 506.0400, L500.2500, L100.0100 #### [facility] [address] [place], [address] Platelet mean volume (Bld) [Entitic vol] 9.8 fL Normal 6.2-12.0 [facility] Comment on above: Performed By: #### L 506.0400, L500.2500, L100.0100 #### [facility] [address] [place], [address] Platelets (Bld) [#/Vol] 176 10*3/uL Normal 150-450 [facility] Comment on above: Performed By: #### L 506.0400, L500.2500, L100.0100 #### [facility] [address] [place], [address] RBC (Bld) [#/Vol] 4.90 10*6/uL Normal 4.2-5.4 [facility] Comment on above: Performed By: #### L 506.0400, L500.2500, L100.0100 #### [facility] [address] [place], [address] RDW SD 39.2 fl Normal 35.1-43.9 [facility] Comment on above: Performed By: #### L 506.0400, L500.2500, L100.0100 #### [facility] [address] [place], [address] WBC (Bld) [#/Vol] 8.5 10*3/uL Normal 4.4-11.0 [facility] Comment on above: Performed By: #### L 506.0400, L500.2500, L100.0100 #### [facility] [address] [place], [address] Bilirubin, totalOrdered By: Dionne Porter on 09-30-2024 Bilirubin [Mass/Vol] 0.27 mg/dL 0.00-1.30 [facility] Comment on above: Performed By: #### L 501.9520, L501.5200 #### [facility] [address] [place], [address] CBC W/Diff, Automatedon Absolute Lymph 0.61 X10 3/uL Low 0.83-4.51 [facility] Comment on above: Performed By: #### L 501.9520, L501.5200 #### [facility] [address] [place], [address] Absolute Neut 6.8 X10 3/uL Normal 2.0-7.7 [facility] Comment on above: Performed By: #### L 501.9520, L501.5200 #### [facility] [address] [place], [address] Basophils/100 WBC (Bld) 0.0 % Normal 0-1 [facility] Comment on above: Performed By: #### L 501.9520, L501.5200 #### [facility] [address] [place], [address] Eosinophils/100 WBC (Bld) 0.0 % Normal 0-5 [facility] Comment on above: Performed By: #### L 501.9520, L501.5200 #### [facility] [address] [place], [address] Erythrocyte distribution width (RBC) [Ratio] 13.0 % Normal 11.6-14.6 [facility] Comment on above: Performed By: #### L 501.9520, L501.5200 #### [facility] [address] [place], [address] Hematocrit (Bld) [Volume fraction] 38.4 % Normal 37-47 [facility] Comment on above: Performed By: #### L 501.9520, L501.5200 #### [facility] [address] [place], [address] Hemoglobin (Bld) [Mass/Vol] 12.6 g/dL Normal 12.0-15.0 [facility] Comment on above: Performed By: #### L 501.9520, L501.5200 #### [facility] [address] [place], [address] IG% 0.400 Normal 0.0-0.9 [facility] Comment on above: Result Comment: IG% - Immature Granulocytes (promyelocytes, myelocytes and metamyelocytes) > 1% indicates that a LEFT SHIFT is Present. Performed By: #### L 501.9520, L501.5200 #### [facility] [address] [place], [address] Lymphocytes/100 WBC (Bld) 8.0 % Low 19-41 [facility] Comment on above: Performed By: #### L 501.9520, L501.5200 #### [facility] [address] [place], [address] MCH (RBC) [Entitic mass] 27.9 pg Normal 27.0-32.0 [facility] Comment on above: Performed By: #### L 501.9520, L501.5200 #### [facility] [address] [place], [address] MCHC (RBC) [Mass/Vol] 32.8 g/dL Normal 32-36 [facility] Comment on above: Performed By: #### L 501.9520, L501.5200 #### [facility] [address] [place], [address] MCV (RBC) [Entitic vol] 85.0 fL Normal 81-99 [facility] Comment on above: Performed By: #### L 501.9520, L501.5200 #### [facility] [address] [place], [address] Monocytes/100 WBC (Bld) 3.5 % Normal 0-[address] [facility] Comment on above: Performed By: #### L 501.9520, L501.5200 #### [facility] [address] [place], [address] Neutrophils/100 WBC (Bld) 88.1 % High 47-70 [facility] Comment on above: Performed By: #### L 501.9520, L501.5200 #### [facility] [address] [place], [address] Nucleated RBC (Bld) [#/Vol] 0 10*3/uL Normal 0-5 [facility] Comment on above: Performed By: #### L 501.9520, L501.5200 #### [facility] [address] [place], [address] Platelet mean volume (Bld) [Entitic vol] 10.0 fL Normal 6.2-12.0 [facility] Comment on above: Performed By: #### L 501.9520, L501.5200 #### [facility] [address] [place], [address] Platelets (Bld) [#/Vol] 177 10*3/uL Normal 150-450 [facility] Comment on above: Performed By: #### L 501.9520, L501.5200 #### [facility] [address] [place], [address] RBC (Bld) [#/Vol] 4.52 10*6/uL Normal 4.2-5.4 [facility] Comment on above: Performed By: #### L 501.9520, L501.5200 #### [facility] [address] [place], [address] RDW SD 39.9 fl Normal 35.1-43.9 [facility] Comment on above: Performed By: #### L 501.9520, L501.5200 #### [facility] [address] [place], [address] WBC (Bld) [#/Vol] 7.7 10*3/uL Normal 4.4-11.0 [facility] Comment on above: Performed By: #### L 501.9520, L501.5200 #### [facility] [address] [place], [address] Comprehensive Metabolic Prof cozulema 09-30-2024 ALK PHOS 60 U/L Normal 35-104 [facility] Comment on above: Performed By: #### L 501.9520, L501.5200 #### [facility] [address] [place], [address] BUN/CRE 32.5 RATIO High 10-20 [facility] Comment on above: Performed By: #### L 501.9520, L501.5200 #### [facility] [address] [place], [address] Calcium [Mass/Vol] 9.0 mg/dL Normal 7.6-11.0 [facility] Comment on above: Performed By: #### L 501.9520, L501.5200 #### [facility] [address] [place], [address] Chloride [Moles/Vol] 95 mmol/L Low 98-108 [facility] Comment on above: Performed By: #### L 501.9520, L501.5200 #### [facility] [address] [place], [address] CO2 [Moles/Vol] 33.3 mmol/L High 21.0-32.0 [facility] Comment on above: Performed By: #### L 501.9520, L501.5200 #### [facility] [address] [place], [address] Creatinine [Mass/Vol] 0.58 mg/dL Low 0.70-1.20 [facility] Comment on above: Performed By: #### L 501.9520, L501.5200 #### [facility] [address] [place], [address] ECRCL 65.06 ml/min Normal 50-250 [facility] Comment on above: Performed By: #### L 501.9520, L501.5200 #### [facility] [address] [place], [address] GAP 10 Normal 5-15 [facility] Comment on above: Performed By: #### L 501.9520, L501.5200 #### [facility] [address] [place], [address] GFR/1.73 sq M.predicted among non-blacks MDRD (S/P/Bld) [Vol rate/Area] 98 mL/min/{1.73_m2} Normal >60 [facility] Comment on above: Result Comment: mL/m in/1.73m2 CKD-EPI Creatinine Equation (2020) Performed By: #### L 501.9520, L501.5200 #### [facility] [address] [place], [address] Glucose [Mass/Vol] 127 mg/dL High 70-99 [facility] Comment on above: Performed By: #### L 501.9520, L501.5200 #### [facility] [address] [place], [address] Potassium [Moles/Vol] 4.6 mmol/L Normal 3.3-5.1 [facility] Comment on above: Result Comment: Hemo lysis present, Results??could be affected. ?? Performed By: #### L 501.9520, L501.5200 #### [facility] [address] [place], [address] Sodium [Moles/Vol] 138 mmol/L Normal 133-145 [facility] Comment on above: Performed By: #### L 501.9520, L501.5200 #### [facility] [address] [place], [address] T PROT 6.3 g/dL Normal 5.9-8.4 [facility] Comment on above: Performed By: #### L 501.9520, L501.5200 #### [facility] [address] [place], [address] Urea nitrogen [Mass/Vol] 19 mg/dL Normal 4-19 [facility] Comment on above: Performed By: #### L 501.9520, L501.5200 #### [facility] [address] [place], [address] Comprehensive Metabolic Prof ilOrdered By: Dionne Porter on 09-30-2024 AST [Catalytic activity/Vol] 17 U/L <32 [facility] Comment on above: Hemolysis present, R esults could be affected. Result Comment: Hemo lysis present, Results??could be affected. ?? Performed By: #### L 501.9520, L501.5200 #### [facility] [address] [place], [address] Serum globulin measurementOr dered By: Dionne Porter on 09-30-2024 Globulin (S) [Mass/Vol] 2.5 g/dL 2.2-4.2 [facility] Comment on above: Performed By: #### L 501.9520, L501.5200 #### [facility] [address] [place], [address] Serum or plasma alanine retana otransferase (ALT) measurementOrdered By: Dionne Porter on 09-30-2024 ALT [Catalytic activity/Vol] 9 U/L <35 [facility] Comment on above: Performed By: #### L 501.9520, L501.5200 #### [facility] [address] [place], [address] Serum or plasma albumin kadi urement (mass/volume)Ordered By: Dionne Porter on 09-30-2024 Albumin [Mass/Vol] 3.8 g/dL 3.4-4.8 [facility] Comment on above: Performed By: #### L 501.9520, L501.5200 #### [facility] [address] [place], [address] Serum or plasma albumin/glob ulin mass ratioOrdered By: Dionne Porter on 09-30-2024 Albumin/Globulin [Mass ratio] 1.5 {ratio} 0.9-2.4 [facility] Comment on above: Performed By: #### L 501.9520, L501.5200 #### [facility] [address] [place], [address] Serum or plasma alkaline renetta sphatase measurementOrdered By: Dionne Porter on 09-30-2024 ALP [Catalytic activity/Vol] 60 U/L 35-104 [facility] Total proteinOrdered By: Arthur Porter on 09-30-2024 Protein [Mass/Vol] 6.3 g/dL 5.9-8.4 [facility] Absolute lymphocyte countOrd ered By: Riley Jeff on 09-29-2024 Lymphocytes Auto (Unsp spec) [#/Vol] 1.40 10*3/uL 0.83-4.51 [facility] Absolute neutrophil countOrd ered By: Riley Jeff on 09-29-2024 Neutrophils (Bld) [#/Vol] 8.4 10*3/uL High 2.0-7.7 [facility] Anion gap in Serum or Plasma Ordered By: Riley Jeff on 09-29-2024 Anion gap [Moles/Vol] 10 mmol/L 5-15 [facility] Assessment of wrist artery p atency prior to arterial punctureOrdered By: Riley Jeff on 09-29-2024 Arterial patency Wrist artery --pre arterial puncture Positive [facility] Automated lymphocyte count a s percentage of total leukocytesOrdered By: Riley Jeff on 09-29-2024 Lymphocytes/100 WBC Auto (Unsp spec) 13.2 % Low 19-41 [facility] BUN/creatinine ratioOrdered By: Riley Jeff on 09-29-2024 Urea nitrogen/Creatinine [Mass ratio] 25.5 mg/mg High 10-20 [facility] Basic Metabolic Profile (BMP )on 09-29-2024 BUN/CRE 25.5 RATIO High 10-20 [facility] Comment on above: Performed By: #### L 506.0400, L500.2500, L100.0100 #### [facility] [address] [place], [address] Calcium [Mass/Vol] 8.9 mg/dL Normal 7.6-11.0 [facility] Comment on above: Performed By: #### L 506.0400, L500.2500, L100.0100 #### [facility] [address] [place], [address] Chloride [Moles/Vol] 93 mmol/L Low 98-108 [facility] Comment on above: Performed By: #### L 506.0400, L500.2500, L100.0100 #### [facility] [address] [place], [address] CO2 [Moles/Vol] 33.1 mmol/L High 21.0-32.0 [facility] Comment on above: Performed By: #### L 506.0400, L500.2500, L100.0100 #### [facility] [address] [place], [address] Creatinine [Mass/Vol] 0.70 mg/dL Normal 0.70-1.20 [facility] Comment on above: Performed By: #### L 506.0400, L500.2500, L100.0100 #### [facility] [address] [place], [address] ECRCL 64.35 ml/min Normal 50-250 [facility] Comment on above: Performed By: #### L 506.0400, L500.2500, L100.0100 #### [facility] [address] [place], [address] GAP 10 Normal 5-15 [facility] Comment on above: Performed By: #### L 506.0400, L500.2500, L100.0100 #### [facility] [address] [place], [address] GFR/1.73 sq M.predicted among non-blacks MDRD (S/P/Bld) [Vol rate/Area] 94 mL/min/{1.73_m2} Normal >60 [facility] Comment on above: Result Comment: mL/m in/1.73m2 CKD-EPI Creatinine Equation (2020) Performed By: #### L 506.0400, L500.2500, L100.0100 #### [facility] [address] [place], [address] Glucose [Mass/Vol] 129 mg/dL High 70-99 [facility] Comment on above: Performed By: #### L 506.0400, L500.2500, L100.0100 #### [facility] [address] [place], [address] Potassium [Moles/Vol] 4.4 mmol/L Normal 3.3-5.1 [facility] Comment on above: Performed By: #### L 506.0400, L500.2500, L100.0100 #### [facility] [address] [place], [address] Sodium [Moles/Vol] 136 mmol/L Normal 133-145 [facility] Comment on above: Performed By: #### L 506.0400, L500.2500, L100.0100 #### [facility] [address] [place], [address] Urea nitrogen [Mass/Vol] 18 mg/dL Normal 4-19 [facility] Comment on above: Performed By: #### L 506.0400, L500.2500, L100.0100 #### [facility] [address] [place], [address] Basophil percentageOrdered B y: Riley Jeff on 09-29-2024 Basophils/100 WBC (Bld) 0.2 % 0-1 [facility] CHAO TEST Positive Normal [facility] Comment on above: Performed By: #### L 506.0400, L500.2500, L100.0100 #### [facility] [address] [place], [address] Base excess Calc (Bld) [Moles/Vol] 19 mmol/L High -2 to +2 [facility] Comment on above: Performed By: #### L 506.0400, L500.2500, L100.0100 #### [facility] [address] [place], [address] Blood Gas Type ART Normal [facility] Comment on above: Performed By: #### L 506.0400, L500.2500, L100.0100 #### [facility] [address] [place], [address] CO2 [Moles/Vol] 47 mmol/L Normal [facility] Comment on above: Performed By: #### L 506.0400, L500.2500, L100.0100 #### [facility] [address] [place], [address] FI02 3.0 Normal [facility] Comment on above: Performed By: #### L 506.0400, L500.2500, L100.0100 #### [facility] [address] [place], [address] HCO3 (Bld) [Moles/Vol] 44.5 mmol/L High 22-26 [facility] Comment on above: Performed By: #### L 506.0400, L500.2500, L100.0100 #### [facility] [address] [place], [address] Mode Not entered Normal [facility] Comment on above: Performed By: #### L 506.0400, L500.2500, L100.0100 #### [facility] [address] [place], [address] O2 Delivery Dev Cannula Normal [facility] Comment on above: Performed By: #### L 506.0400, L500.2500, L100.0100 #### [facility] [address] [place], [address] pCO2 79.5 mmHg Invalid Interpretation Code 35-45 [facility] Comment on above: Performed By: #### L 506.0400, L500.2500, L100.0100 #### [facility] [address] [place], [address] pH (Bld) 7.36 [pH] Normal 7.35-7.45 [facility] Comment on above: Performed By: #### L 506.0400, L500.2500, L100.0100 #### [facility] [address] [place], [address] PO2 83 mmHG Normal 75-100 [facility] Comment on above: Performed By: #### L 506.0400, L500.2500, L100.0100 #### [facility] [address] [place], [address] Read Back By Yes Normal [facility] Comment on above: Performed By: #### L 506.0400, L500.2500, L100.0100 #### [facility] [address] [place], [address] Results To Andes [facility] Comment on above: Performed By: #### L 506.0400, L500.2500, L100.0100 #### [facility] [address] [place], [address] SITE L Radial Normal [facility] Comment on above: Performed By: #### L 506.0400, L500.2500, L100.0100 #### [facility] [address] [place], [address] SO2 95 Normal 95-99 [facility] Comment on above: Performed By: #### L 506.0400, L500.2500, L100.0100 #### [facility] [address] [place], [address] Time Given 04:48:18 [facility] Comment on above: Performed By: #### L 506.0400, L500.2500, L100.0100 #### [facility] [address] [place], [address] Blood base excess determinat ionOrdered By: Riley Jeff on 09-29-2024 Base excess Calc (BldV) [Moles/Vol] 19 mmol/L High -2-2 [facility] Blood bicarbonate measuremen tOrdered By: Riley Jeff on 09-29-2024 HCO3 (Bld) [Moles/Vol] 44.5 mmol/L High 22-26 [facility] CBC W/Diff, Automatedon 06-0 6-2024 Absolute Lymph 1.40 X10 3/uL Normal 0.83-4.51 [facility] Comment on above: Performed By: #### L 100.0100 #### [facility] [address] [place], [address] Absolute Neut 8.4 X10 3/uL High 2.0-7.7 [facility] Comment on above: Performed By: #### L 100.0100 #### [facility] [address] [place], [address] Basophils/100 WBC (Bld) 0.2 % Normal 0-1 [facility] Comment on above: Performed By: #### L 100.0100 #### [facility] [address] [place], [address] Eosinophils/100 WBC (Bld) 0.7 % Normal 0-5 [facility] Comment on above: Performed By: #### L 100.0100 #### [facility] [address] [place], [address] Erythrocyte distribution width (RBC) [Ratio] 13.1 % Normal 11.6-14.6 [facility] Comment on above: Performed By: #### L 100.0100 #### [facility] [address] [place], [address] Hematocrit (Bld) [Volume fraction] 41.7 % Normal 37-47 [facility] Comment on above: Performed By: #### L 100.0100 #### [facility] [address] [place], [address] Hemoglobin (Bld) [Mass/Vol] 13.6 g/dL Normal 12.0-15.0 [facility] Comment on above: Performed By: #### L 100.0100 #### [facility] [address] [place], [address] IG% 0.500 Normal 0.0-0.9 [facility] Comment on above: Result Comment: IG% - Immature Granulocytes (promyelocytes, myelocytes and metamyelocytes) > 1% indicates that a LEFT SHIFT is Present. Performed By: #### L 100.0100 #### [facility] [address] [place], [address] Lymphocytes/100 WBC (Bld) 13.2 % Low 19-41 [facility] Comment on above: Performed By: #### L 100.0100 #### [facility] [address] [place], [address] MCH (RBC) [Entitic mass] 27.9 pg Normal 27.0-32.0 [facility] Comment on above: Performed By: #### L 100.0100 #### [facility] [address] [place], [address] MCHC (RBC) [Mass/Vol] 32.6 g/dL Normal 32-36 [facility] Comment on above: Performed By: #### L 100.0100 #### [facility] [address] [place], [address] MCV (RBC) [Entitic vol] 85.5 fL Normal 81-99 [facility] Comment on above: Performed By: #### L 100.0100 #### [facility] [address] [place], [address] Monocytes/100 WBC (Bld) 6.9 % Normal 0-10 [facility] Comment on above: Performed By: #### L 100.0100 #### [facility] [address] [place], [address] Neutrophils/100 WBC (Bld) 78.5 % High 47-70 [facility] Comment on above: Performed By: #### L 100.0100 #### [facility] [address] [place], [address] Nucleated RBC (Bld) [#/Vol] 0 10*3/uL Normal 0-5 [facility] Comment on above: Performed By: #### L 100.0100 #### [facility] [address] [place], [address] Platelet mean volume (Bld) [Entitic vol] 9.7 fL Normal 6.2-12.0 [facility] Comment on above: Performed By: #### L 100.0100 #### [facility] [address] [place], [address] Platelets (Bld) [#/Vol] 198 10*3/uL Normal 150-450 [facility] Comment on above: Performed By: #### L 100.0100 #### [facility] [address] [place], [address] RBC (Bld) [#/Vol] 4.88 10*6/uL Normal 4.2-5.4 [facility] Comment on above: Performed By: #### L 100.0100 #### [facility] [address] [place], [address] RDW SD 40.6 fl Normal 35.1-43.9 [facility] Comment on above: Performed By: #### L 100.0100 #### [facility] [address] [place], [address] WBC (Bld) [#/Vol] 10.6 10*3/uL Normal 4.4-11.0 [facility] Comment on above: Performed By: #### L 100.0100 #### [facility] [address] [place], [address] Carbon dioxide, total [Moles /volume] in Central venous bloodOrdered By: Riley Jeff on 09-29-2024 CO2 [Moles/Vol] 33.1 mmol/L High 21.0-32.0 [facility] Chest PA and Lateralon 09-29 Chest PA and Lateral [facility] [address] [place] [address] Chest PA and Lateral MR#: [id number] Acct: [id number] Name: DENIA GONZALEZ Rep #: [id number] : 1955 F 69 From: Ghulam Lindquist MD PCP: Dr. Yoseph Fall MD Status: REG ER Study: Chest PA and Lateral Date of Exam: 09/29/24 Exam# [id number] Ordering Dr: Riley Jeff DO PROCEDURE: CHEST PA AND LATERAL 09/29/2024 REASON FOR EXAM: DYSPNEA TECHNIQUE: Frontal and lateral views of the chest. COMPARISON: Chest radiographs on 10/18/2023 and 07/20/2023 FINDINGS: Hardware: None Heart: The heart size is normal. Mediastinum: The mediastinal contour is stable. Surgical clips in the right perihilar region. Lungs: Flattening of the hemidiaphragms. Chronic streaky opacity in the right upper lung zone. No new focal consolidation. No significant pleural effusion. Bones: Degenerative changes are identified within the thoracic spine. RAD/Chest PA and Lateral IMPRESSION: Stable appearance of the chest. Emphysematous changes without evidence of an acute cardiopulmonary abnormality. Reading Location: [id number] CC: Dr. 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 Yoseph Fall MD Status:REG ER Location: ED HPI History of Present Illness Chief Complaint: Shortness of Breath Informant: patient and EMS Narrative Narrative: Patient is a 69-year-old female with past medical history of hypertension and COPD who wears 2 to 3 L nasal cannula oxygen 16/11. She states that she has a home nebulizer machine and takes prednisone every other day. She states over the past 5 to 7 days she has been having increased cough and shortness of breath. Secondary to this she increased her prednisone to 40 mg and has been taking a reported taper. Despite the added prednisone and her continued use of breathing treatments she states cough and shortness of breath has persisted. Secondary to that she presents for evaluation [facility] Medical History RLS (restless legs syndrome) History of ETOH abuse Chronic hypoxic respiratory failure, on home oxygen therapy COPD (chronic obstructive pulmonary disease) Anxiety Depression Smoker Asthma Hypertension Migraines Medical History no medical history Home Medications ???Medication ???Instructions ???Recorded ???Last Taken ???Type albuterol sulfate 90 mcg/actuation 1 - 2 puff inhalation Q4H PRN ID N 04/18/13 09/23/14 History aerosol inhaler (Ventolin HFA) Bronchodialation cyclobenzaprine 10 mg tablet 10 mg PO Q12H pain 04/18/13 History 10 MG fluticasone propionate 50 1 spray intranasal DAILY nasal 09/23/14 History mcg/actuation nasal congestion spray,suspension montelukast [...] tablet,extended 360 mg PO DAILY heart 04/18/13 History release 360 MG Oxygen, Home [Home Oxygen] 2.5 lpm PRN PRN Dyspnea 10/22/13 0 09/23/14 History sertraline 100 mg tablet 100 mg PO DAILY insomina 10/22/13 09/23/14 History fluticasone 500 mcg-salmeterol 50 1 puff inhalation BID shortness o f 10/26/13 09/23/14 Rx mcg/dose blistr powdr for breath ##1 inhalation (Advair Diskus) Ropinirole Hcl 0.25 mg PO QHS restless legs 09/23 Unknown History prednisone 10 mg tablet 15 mg PO PRN PRN FLARE UPS 5 Unknown History ipratropium 0.5 mg-albuterol 3 mg 3 ml inhalation Q4HWA.RT wheezing 05/13/16 Unknown Rx (2.5 mg base)/3 mL nebulization ##30 soln lorazepam 0.5 mg tablet 0.5 mg PO QHS anxiety #7 tabs 04/26 Unknown Rx nicotine (polacrilex) 2 mg gum 2 mg buccal Q2H #20 ea 07/22/23 Un known Rx (Nicorette) azithromycin 250 mg tablet See Rx Instructions PO .COMPLEX #6 10/18/23 Unknown Rx (Zithromax) tabs cholecalciferol (vitamin D3) 50 50 mcg PO DAILY 10/18/23 Unknown H istory mcg (2,000 unit) capsule (Vitamin D3) ipratropium [...] / Time No Known Allergies Allergy Verified 09/29/24 02:19 Family History Mother Hypertension Throat cancer Father Hypertension Stomach cancer Family History no significant family his Surgical History H/O exploratory laparotomy History of lung surgery History of cholecystectomy Social History household members: none Smoking Status: Former smoker alcohol intake: former substance use type: does not use ROS ROS ED Constitutional Constitutional ED: Denies chills or fever(s) ENT ENT ED: Denies rhinorrhea or sore throat Cardiovascular Cardiovascular: Denies chest pain, palpitations or racing heartbeat Respiratory/Chest Respiratory/Chest: Reports cough and dyspnea Gastrointestinal Gastrointestinal: Denies abdominal pain, diarrhea, nausea or vomiting Genitourinary Genitourinary ED: Denies dysuria Musculoskeletal Musculoskeletal: Denies myalgias Integumentary Denies rash Neurologic Neurologic: Reports weakness; Denies headache(s) Hematologic/Lymphati c Hematologic/ (more content not included)... Normal [facility] Eosinophil percentageOrdered By: Riley Jeff on 09-29-2024 Eosinophils/100 WBC (Bld) 0.7 % 0-5 [facility] Erythrocyte distribution wid th ratioOrdered By: Riley Jeff on 09-29-2024 Erythrocyte distribution width (RBC) [Ratio] 13.1 % 11.6-14.6 [facility] Erythrocyte distribution wid th standard deviationOrdered By: Riley Jeff on 09-29-2024 Erythrocyte distribution width (RBC) [Ratio] 40.6 fl 35.1-43.9 [facility] Glomerular filtration rate ( GFR) estimation/1.73 sq m using serum, plasma, or whole bOrdered By: Riley Jeff on 09-29-2024 GFR/1.73 sq M.predicted among non-blacks MDRD (S/P/Bld) [Vol rate/Area] 94 mL/min/{1.73_m2} >60 [facility] Comment on above: mL/min/1.73m2 CKD-EP I Creatinine Equation (2020) Gram stainOrdered By: Dionne Porter on 09-29-2024 Microscopic observation Gram stain Nom (Unsp spec) [facility] H AND P Exam - Hospital[place] 09-29-2024 H&P Exam - Hospitalist [facility] Medical Records Department [address] [place] [address] H P Exam - Hospitalist 09/29/24 0403 MR#: [id number] Acct: [id number] Name: DENIA GONZALEZ Rep #: [id number] : 1955 69 From: Dionne Porter MD PCP: Dr. Yoseph Fall MD Status:REG ER Location: ED HPI - General General Date of Admission: 09/29/24 Date of Service: 09/29/24 Chief Complaint: Dyspnea, wheezing, cough. HPI Narrative The patient is a 69 y/o F w/ PMHx: GERD, RLS, Anxiety and Depression, Former tobacco use, Former EtOH Abuse, Hx Non-small cell lung cancer status post right lung lobectomy remotely 2003, COPD/Asthma with Chronic Hypoxic Respiratory Failure with allergic rhinitis, HTN who presents to the [facility] ED on 09/29/2024 with history of 1 weeks worsening dyspnea, wheezing, nonproductive cough prompting her to utilize aggressive nebulizer treatments at home as well as increasing her home chronic prednisone therapy but unfortunately she continued to have worsening symptoms more severe over the last 24 hours with no recent fever, chills, URI type symptoms prompting eventual ED evaluation. Patient does report she recently quit smoking several weeks previous and is asking for nicotine replacement. Workup in the ED included T99.1, heart 140, BP 190/92, respiratory rate 24, 94% on 3 L nasal cannula, CBC with WBC 10.6, hemoglobin 13.6, platelet 198 with left shift, BMP with chloride 93,, oxide 33.1, BUN/creat 18/0.70, GFR 94, glucose 129, magnesium 2.0, NT proBNP 05/31/2017, chest x-ray with emphysematous changes with no acute cardiopulmonary findings. In the ED patient ministered DuoNeb therapy, albuterol, Solu-Medrol 125 mg IV x 1. PFSH Medical History RLS (restless legs syndrome) History of ETOH abuse Chronic hypoxic respiratory failure, on home oxygen therapy COPD (chronic obstructive pulmonary disease) Anxiety Depression Smoker Asthma Hypertension Migraines Medical History no medical history Home Medications ???Medication ???Instructions ???Recorded ???Last Taken ???Type albuterol sulfate 90 mcg/actuation 1 - 2 puff inhalation Q4H PRN ID N 04/18/13 09/23/14 History aerosol inhaler (Ventolin HFA) Bronchodialation cyclobenzaprine 10 mg tablet 10 mg PO Q12H pain 04/18/13 History 10 MG fluticasone propionate 50 1 spray intranasal DAILY nasal 09/23/14 History mcg/actuation nasal congestion spray,suspension montelukast [...] tablet,extended 360 mg PO DAILY heart 04/18/13 History release 360 MG Oxygen, Home [Home Oxygen] 2.5 lpm PRN PRN Dyspnea 10/22/13 0 09/23/14 History sertraline 100 mg tablet 100 mg PO DAILY insomina 10/22/13 09/23/14 History fluticasone 500 mcg-salmeterol 50 1 puff inhalation BID shortness o f 10/26/13 09/23/14 Rx mcg/dose blistr powdr for breath ##1 inhalation (Advair Diskus) Ropinirole Hcl 0.25 mg PO QHS restless legs 09/23 Unknown History prednisone 10 mg tablet 15 mg PO PRN PRN FLARE UPS 5 Unknown History ipratropium 0.5 mg-albuterol 3 mg 3 ml inhalation Q4HWA.RT wheezing 05/13/16 Unknown Rx (2.5 mg base)/3 mL nebulization ##30 soln lorazepam 0.5 mg tablet 0.5 mg PO QHS anxiety #7 tabs 04/26 Unknown Rx nicotine (polacrilex) 2 mg gum 2 mg buccal Q2H #20 ea 07/22/23 Un known Rx (Nicorette) azithromycin 250 mg tablet See Rx Instructions PO .COMPLEX #6 10/18/23 Unknown Rx (Zithromax) tabs cholecalciferol (vitamin D3) 50 50 mcg PO DAILY 10/18/23 Unknown H istory mcg (2,000 unit) capsule (Vitamin D3) ipratropium [...] / Time No Known Allergies Allergy Verified 09/29/24 02:19 Family History Mother Hypertension Throat cancer Father Hypertension Stomach cancer Family History no significant family his Surgical History H/O exploratory laparotomy History of lung surgery History of cholecystectomy Social History household members: none Smoking Stat (more content not included)... Normal [facility] Hematocrit Auto (Bld) [Volum e fraction]Ordered By: Riley Jeff on 09-29-2024 Hematocrit (Bld) [Volume fraction] 41.7 % 37-47 [facility] Hemoglobin measurementOrdere d By: Riley Jeff on 09-29-2024 Hemoglobin (Bld) [Mass/Vol] 13.6 g/dL 12.0-15.0 [facility] Immature granulocytes/100 WB C Auto (Bld)Ordered By: Riley Jeff on 09-29-2024 Immature granulocytes/100 WBC (Bld) 0.500 % 0.0-0.9 [facility] Comment on above: IG% - Immature Granu locytes (promyelocytes, myelocytes and metamyelocytes) > 1% indicates that a LEFT SHIFT is Present. Influenza virus A and B and SARS-CoV-2 (COVID-19) and Respiratory syncytial virus RNAOrdered By: Riley Jeff on 09-29-2024 SARS-CoV-2 (COVID-19) RNA ASPEN+probe Ql (Unsp spec) [facility] L503.7505on 09-29-2024 Natriuretic peptide B (Bld) [Mass/Vol] 518 pg/mL Normal <=900 [facility] Comment on above: Result Comment: Hear t Failure Unlikely: < 300 pg/mL Heart Failure Likely < 50 Years: > 450 pg/mL 50-75 Years: > 900 pg/mL >75 Years: > 1800 pg/mL Performed By: #### L 506.0400, L500.2500, L100.0100 #### [facility] [address] [place], [address] L509.7001on 09-29-2024 Procalcitonin 0.04 ng/mL Normal <=0.10 [facility] Comment on above: Result Comment: Inte rpretation: <0.10-0.25 ng/mL: Antibiotic therapy discouraged. Bacterial infection unlikely. 0.25-0.50 ng/mL: Antibiotic therapy encouraged. Bacterial infection possible. >0.50 ng/mL: Antibiotic therapy strongly encouraged. Suggestive of presence of bacterial infection. PCT should always be interpreted in the clinical context of the patient. Therefore, clinicians should use the PCT results in conjunction with other laboratory findings and clinical signs of the patient. Performed By: #### L 506.0400, L500.2500, L100.0100 #### [facility] [address] [place], [address] M100.678on 09-29-2024 M100.678 Pending SARS-CoV-2 (COVID 19) Negative INFLUENZA A Negative INFLUENZA B Negative RSV PCR Negative Normal [facility] Comment on above: Performed By: #### L 506.0400, L500.2500, L100.0100 #### [facility] [address] [place], [address] MCV (mean corpuscular volume ) determinationOrdered By: Riley Jeff on 09-29-2024 MCV (RBC) [Entitic vol] 85.5 fL 81-99 [facility] Magnesiumon 09-29-2024 Magnesium [Mass/Vol] 2.0 mg/dL Normal 1.5-2.2 [facility] Comment on above: Performed By: #### L 506.0400, L500.2500, L100.0100 #### [facility] [address] [place], [address] Magnesium measurement (mass/ volume)Ordered By: Riley Jeff on 09-29-2024 Magnesium (Unsp spec) [Mass/Vol] 2.0 mg/dL 1.5-2.2 [facility] Mean corpuscular hemoglobin (MCH) determinationOrdered By: Riley Jeff on 09-29-2024 MCH (RBC) [Entitic mass] 27.9 pg 27.0-32.0 [facility] Mean corpuscular hemoglobin concentration (MCHC) determinationOrdered By: Riley Jeff on 09-29-2024 MCHC (RBC) [Mass/Vol] 32.6 g/dL 32-36 [facility] Mean platelet volume determi nationOrdered By: Riley Jeff on 09-29-2024 Platelet mean volume (Bld) [Entitic vol] 9.7 fL 6.2-12.0 [facility] Measurement, pHOrdered By: Duncan Jeff on 09-29-2024 pH (Unsp spec) 7.36 [pH] 7.35-7.45 [facility] Microbial respiratory cultur eOrdered By: Dionne Porter on 09-29-2024 Microorganism identified Cx Nom (Unsp spec) Stenotrophomonas maltophilia Abnormal [facility] Microorganism identified Cx Nom (Unsp spec) Pseudomonas aeruginosa Abnormal [facility] Monocyte percentageOrdered B y: Riley Jeff on 09-29-2024 Monocytes/100 WBC (Bld) 6.9 % 0-10 [facility] Natriuretic peptide.B prohor sharee N-Terminal [Mass/volume] in Serum or PlasmaOrdered By: Riley Jeff on 09-29-2024 Natriuretic peptide.B prohormone N-Terminal [Mass/Vol] 518 pg/mL <900 [facility] Comment on above: Heart Failure Unlike ly: < 300 pg/mLHeart Failure Likely< 50 Years: > 450 pg/mL50-75 Years: > 900 pg/mL>75 Years: > 1800 pg/mL Neutrophil percentageOrdered By: Riley Jeff on 09-29-2024 Neutrophils/100 WBC (Bld) 78.5 % High 47-70 [facility] No Panel InformationOrdered By: Riley Jeff on 09-29-2024 Bld Gas Crit Called To/Read Back By Yes [facility] Blood Gas Notified Time 04:48:18 [facility] Blood Gas Notified Whom Randee [facility] Blood Gas Sample Site L Radial [facility] Blood Gas Specimen Type ART [facility] Blood Gas Vent Mode Not entered [facility] Oxygen Delivery Device Cannula [facility] Nucleated red blood cell per centageOrdered By: Riley Jeff on 09-29-2024 Nucleated RBC/100 WBC (Bld) [Ratio] 0 % 0-5 [facility] Platelet countOrdered By: Silvia Jeff on 09-29-2024 Platelets (Bld) [#/Vol] 198 10*3/uL 150-450 [facility] Potassium measurement (mass/ volume)Ordered By: Riley Jeff on 09-29-2024 Potassium (Unsp spec) [Mass/Vol] 4.4 mmol/L 3.3-5.1 [facility] Procalcitonin [Mass/volume] in Serum or Plasma by ImmunoassayOrdered By: Dionne Porter on 09-29-2024 Procalcitonin IA [Mass/Vol] 0.04 ng/mL <0.11 [facility] Comment on above: Interpretation:<0.10 -0.25 ng/mL: Antibiotic therapy discouraged. Bacterial infection unlikely.0.25-0.50 ng/mL: Antibiotic therapy encouraged. Bacterial infection possible.>0.50 ng/mL: Antibiotic therapy strongly encouraged. Suggestive of presence of bacterial infection.PCT should always be interpreted in the clinical context of the patient. Therefore, clinicians should use the PCT results in conjunction with other laboratory findings and clinical signs of the patient. RBC Auto (Bld) [#/Vol]Ordere d By: Riley Jeff on 09-29-2024 RBC (Bld) [#/Vol] 4.88 10*6/uL 4.2-5.4 [facility] RESPIRATORY PANEL MOLECULARo n 09-29-2024 RP PANEL ADENOVIRUS Not Detected INFLUENZA A Not Detected INFLUENZA A (SUBTYPE H1) Not Detected INFLUENZA A (SUBTYPE H3) Not Detected INFLUENZA B Not Detected HUMAN METAPHNEUMO Not Detected PARAINFLUENZA 1 Not Detected PARAINFLUENZA 2 Not Detected PARAINFLUENZA 3 Not Detected PARAINFLUENZA 4 Not Detected RHINOVIRUS Not Detected RSV A Not Detected RSV B Not Detected Normal [facility] Comment on above: Performed By: #### L 506.0400, L500.2500, L100.0100 #### [facility] [place], [address] Respiratory pathogens detect ion panel by molecular detection methodOrdered By: Dionne Porter on 09-29-2024 Respiratory pathogens DNA and RNA panel ASPEN+probe (Resp) [facility] Serum creatinine measurement (mass/volume)Ordered By: Riley Jfef on 09-29-2024 Creatinine [Mass/Vol] 0.70 mg/dL 0.70-1.20 [facility] Serum glucose measurement (m ass/volume)Ordered By: Riley Jeff on 09-29-2024 Glucose [Mass/Vol] 129 mg/dL High 70-99 [facility] Serum or plasma calcium kadi urement (mass/volume)Ordered By: Riley Jeff on 09-29-2024 Calcium [Mass/Vol] 8.9 mg/dL 7.6-11.0 [facility] Serum or plasma urea nitroge n measurement (mass/volume)Ordered By: Riley Jeff on 09-29-2024 Urea nitrogen [Mass/Vol] 18 mg/dL 4-19 [facility] Sodium levelOrdered By: Brennen Jeff on 09-29-2024 Sodium [Moles/Vol] 136 mmol/L 133-145 [facility] Total carbon dioxide measure mentOrdered By: Riley Jeff on 09-29-2024 CO2 [Moles/Vol] 47 mmol/L [facility] White blood cell (WBC) count Ordered By: Riley Jeff on 09-29-2024 WBC (Bld) [#/Vol] 10.6 10*3/uL 4.4-11.0 [facility] CNPNon 07-24-2024 CNPN Telephone (FAMPWS) DENIA GONZALEZ ([id number]) 1955 F Date Time Provider Department 07/24/24 [facility] During your visit today, we recorded the following information about you: Clarisse Anguiano, KAREN 07/24/2024 4:33 PM Signed Pts significant other [...] rash. He states the Pt has a branch service representative that come in tomorrow and she could [...] directed. Dx: COPD J44.9 - Nebulizer Accessories [facility] Mask and supplies as needed - PULSE OXIMETER [facility] Use as directed to check oxygen saturation level - ammonium lactate (AMLACTIN) 12 % lotion Apply 1 application to affected area as needed for Dry Skin. - losartan (COZAAR) 50 mg tablet Take 0.5 tablets by mouth once daily. - OXYGEN, HOME THERAPY, 2.5 L/min by Nasal Cannula route continuous. Use as directred - Disposable Gloves (DISPOSABLE LATEX-FREE GLOVES) [facility] 1 Box once every month. ICD 10: [...] classification (HC (more content not included)... Normal [facility]20[facility] ([id number]) 1955 F Date Time Provider Department 07/12/[facility] visit today, we recorded the following information about you: Sukhi Marrero RN 07/12/2024 2:51 PM Signed [facility] calls to request chart notes to support patients need for continued oxygen. Most recent visits have all been [facility]. Jenni requests most recent visit be faxed. Faxed to [phone] per request. Sukhi Marrero RN Allergies As [...] directed. Dx: COPD J44.9 - Nebulizer Accessories [facility] Mask and supplies as needed - PULSE OXIMETER [facility] Use as directed to check oxygen saturation level - ammonium lactate (AMLACTIN) 12 % lotion Apply 1 application to affected area as needed for Dry Skin. - losartan (COZAAR) 50 mg tablet Take 0.5 tablets by mouth once daily. - OXYGEN, HOME THERAPY, 2.5 L/min by Nasal Cannula route continuous. Use as directred - Disposable Gloves (DISPOSABLE LATEX-FREE GLOVES) [facility] 1 Box once every month. ICD 10: [...] Encounter Status:Closed by SUKHI MARRERO [facility] DENIA GONZALEZ ([id number]) 1955 F Date Time Provider Department 06/12/24 [facility] During your visit today, we recorded the following information about you: Sanjana Baca MA 06/12/2024 12:44 PM Signed Type of form: Medical Necessity for incontinence supplies. Form received via fax When form is completed, Fax form to [phone] Form has been forwarded to Physician Desk: JOS Drew Rilee, MA 06/12/2024 3:42 PM Signed Form completed and faxed back to information below. Sanjana Baca MA Allergies As of Date: 06/12/2024 (No Known Allergies) Date Reviewed: 04/07/2024 Reviewed by: Sanjana Baca MA - Fully Assessed Reason for Visit: Forms [003] Cmt: Accurate Medical Supply Prescriptions as of [...] directed. Dx: COPD J44.9 - Nebulizer Accessories [facility] Mask and supplies as needed - PULSE OXIMETER [facility] Use as directed to check oxygen saturation level - ammonium lactate (AMLACTIN) 12 % lotion Apply 1 application to affected area as needed for Dry Skin. - losartan (COZAAR) 50 mg tablet Take 0.5 tablets by mouth once daily. - OXYGEN, HOME THERAPY, 2.5 L/min by Nasal Cannula route continuous. Use as directred - Disposable Gloves (DISPOSABLE LATEX-FREE GLOVES) [facility] 1 Box once every month. ICD 10: [...] Encounter Status:Closed by SANJANA BACA on 06/12/24 [facility] 06-02-2024 CNPN Telephone (INT[facility]) DENIA GONZALEZ ([id number]) 1955 F Date Time Provider Department 06/02/24 [facility] During your visit today, we recorded the following information about you: Ban Villafana LPN 06/02/2024 8:13 AM Signed Electronic PA rec'd and completed for cyclobenzaprine. This was denied. Note from payer: CaseId:[id number];Stat us:Denied;Review Type:Prior Auth;Appeal Information: Attention:ATTN: [employer] [address] [address],[place], [place],[address] WebAddress:[email or web address]; Important - Please read the below note [...] for a decision on the appeal.; Payer: [employer] [phone] Electronic appeal: Supported View History Notes Time [...] to its destination. To be filled at: [facility] [address] [place] [address] [address] [facility] [phone] Allergies As of Date: 06/02/2024 (No Known [...] directed. Dx: COPD J44.9 - Nebulizer Accessories [facility] Mask and supplies as needed - PULSE OXIMETER [facility] Use as directed to check oxygen saturation level - ammonium lactate (AMLACTIN) 12 % lotion Apply 1 application to affected area as needed for Dry Skin. - losartan (COZAAR) 50 mg tablet Take 0.5 tablets by mouth once daily. - OXYGEN, HOME THERAPY, 2.5 L/min by Nasal Cannula route continuous. Use as directred - Disposable Gloves (DISPOSABLE LATEX-FREE GLOVES) [facility] 1 Box once every month. ICD 10: [...] Noted Reso (more content not included)... Normal [facility] 03-21-2024 [facility] Telephone (FAMPWS) MONICODENIA ([id number]) 1955 F Date Time Provider Department 03/21/24 [facility] During your visit today, we recorded the [...] Please review and advise, KAREN Werner Ashley, APRN.[facility] 03/22/2024 8:51 AM Signed The following [...] directed. Dx: COPD J44.9 - Nebulizer Accessories misc Mask and supplies as needed - PULSE OXIMETER [facility] Use as directed to check oxygen saturation level - ammonium lactate (AMLACTIN) 12 % lotion Apply 1 application to affected area as needed for Dry Skin. - losartan (COZAAR) 50 mg tablet Take 0.5 tablets by mouth once daily. - OXYGEN, HOME THERAPY, 2.5 L/min by Nasal Cannula route continuous. Use as directred - Disposable Gloves (DISPOSABLE LATEX-FREE GLOVES) [facility] 1 Box once every month. ICD 10: [...] PAP S (more content not included)... [facility] DENIA GONZALEZ ([id number]) 1955 F Date Time Provider Department 02/03/24 [facility] During your visit today, we recorded the following information about you: Martínez Louie RN 02/03/2024 1:25 PM Signed Daughter [...] Fully Assessed Reason for Visit: Patient Question [5707] Prescriptions as of 02/03/2024 - HYDROcodone-acetamin ophen [...] directed. Dx: COPD J44.9 - Nebulizer Accessories [facility] Mask and supplies as needed - PULSE OXIMETER [facility] Use as directed to check oxygen saturation level - ammonium lactate (AMLACTIN) 12 % lotion Apply 1 application to affected area as needed for Dry Skin. - losartan (COZAAR) 50 mg tablet Take 0.5 tablets by mouth once daily. - OXYGEN, HOME THERAPY, 2.5 L/min by Nasal Cannula route continuous. Use as directred - Disposable Gloves (DISPOSABLE LATEX-FREE GLOVES) [facility] 1 Box once every month. ICD 10: [...] [Z51.81] 05/16/2021 Chronic respiratory failure with hypoxia ([facility]) *02/20/2022 Cigarette smoker [F17.210] 02/20/2022 Obstructive chronic bronchitis with exacerbatio* Encounter Status:Closed by Martínez LOUIE on 02/03/24 [facility] CNPN Telephone (Decis[facility]) DENIA GONZALEZ ([id number]) 1955 F Date Time Provider Department 02/03/24 [facility] During your visit today, we recorded the following information about you: Judy Bliss, RN 02/03/2024 5:00 PM Signed Patient's significant [...] Fully Assessed Reason for Visit: Patient Question [2857] Order(s):amoxicillin (AMOXIL) 875 mg tabletTake 1 tablet [...] directed. Dx: COPD J44.9 - Nebulizer Accessories [facility] Mask and supplies as needed - PULSE OXIMETER [facility] Use as directed to check oxygen saturation level - ammonium lactate (AMLACTIN) 12 % lotion Apply 1 application to affected area as needed for Dry Skin. - losartan (COZAAR) 50 mg tablet Take 0.5 tablets by mouth once daily. - OXYGEN, HOME THERAPY, 2.5 L/min by Nasal Cannula route continuous. Use as directred - Disposable Gloves (DISPOSABLE LATEX-FREE GLOVES) [facility] 1 Box once every month. ICD 10: [...] [K59.00] 06/21/2016 (more content not included)... Normal [facility] Absolute lymphocyte countOrd ered By: Jan Bolanos on 07-21-2023 Lymphocytes Auto (Unsp spec) [#/Vol] 0.61 10*3/uL 0.83-4.51 [facility] Automated lymphocyte count a s percentage of total leukocytesOrdered By: Jan Bolanos on 07-21-2023 Lymphocytes/100 WBC Auto (Unsp spec) 8.8 % 19-41 [facility] Basophil percentageOrdered B y: Jan Bolanos on 07-21-2023 Basophils/100 WBC (Bld) 0.0 % 0-1 [facility] Chloride [Moles/Vol] 107 mmol/L 98-107 [facility] Eosinophils/100 WBC (Bld) 0.0 % 0-5 [facility] Glucose [Mass/Vol] 140 mg/dL 74-106 [facility] Comment on above: Fasting Glucose resu lt greater than or equal to 126 mg/dL suggests DIABETES MELLITUS per A.D.A. criteria. Hemoglobin (Bld) [Mass/Vol] 12.0 g/dL 12.0-15.0 [facility] Monocytes/100 WBC (Bld) 2.7 % 0-10 [facility] Neutrophils (Bld) [#/Vol] 6.1 10*3/uL 2.0-7.7 [facility] Neutrophils/100 WBC (Bld) 88.1 % 47-70 [facility] Potassium [Moles/Vol] 4.1 mmol/L 3.5-5.1 [facility] Sodium [Moles/Vol] 140 mmol/L 136-145 [facility] WBC (Bld) [#/Vol] 6.9 10*3/uL 4.4-11.0 [facility] Determination of erythrocyte mean corpuscular volume (MCV)Ordered By: Jan Bolanos on 07-21-2023 MCV (RBC) [Entitic vol] 82.7 fL 81-99 [facility] Erythrocyte distribution wid th ratioOrdered By: Jan Bolanos on 07-21-2023 Erythrocyte distribution width (RBC) [Ratio] 13.4 % 11.6-14.6 [facility] Erythrocyte distribution wid th standard deviationOrdered By: Jan Bolanos on 07-21-2023 Erythrocyte distribution width (RBC) [Entitic vol] 40.3 fL 35.1-43.9 [facility] Gram stain for investigation of transfusion reactionOrdered By: Jan Bolanos on 07-21-2023 Microscopic observation Gram stain Nom (Unsp spec) [facility] Hematocrit Auto (Bld) [Volum e fraction]Ordered By: Jan Bolanos on 07-21-2023 Hematocrit (Bld) [Volume fraction] 37.4 % 37-47 [facility] Immature granulocytes/100 WB C Auto (Bld)Ordered By: Jan Bolanos on 07-21-2023 Immature granulocytes/100 WBC (Bld) 0.400 % 0.0-0.9 [facility] Comment on above: IG% - Immature Granu locytes (promyelocytes, myelocytes and metamyelocytes) > 1% indicates that a LEFT SHIFT is Present. Laboratory - Chemistry and C hemistry - challengeOrdered By: Jan Bolanos on 07-21-2023 CO2 [Moles/Vol] 30.0 mmol/L 21.0-32.0 [facility] Urea nitrogen/Creatinine [Mass ratio] 27.8 mg/mg 10-20 [facility] Laboratory - Hematology and Cell countsOrdered By: Jan Bolanos on 07-21-2023 MCH (RBC) [Entitic mass] 26.5 pg 27.0-32.0 [facility] MCHC (RBC) [Mass/Vol] 32.1 g/dL 32-36 [facility] Nucleated RBC/100 WBC (Bld) [Ratio] 0 % 0-5 [facility] Platelet mean volume (Bld) [Entitic vol] 9.9 fL 6.2-12.0 [facility] Platelets (Bld) [#/Vol] 210 10*3/uL 150-450 [facility] No Panel InformationOrdered By: Jan Bolanos on 07-21-2023 Estimated Creatinine Clearance Calc 64.83 ml/min [facility] Estimated GFR (MDRD) Amer 170 mL/min >60 [facility] Comment on above: GFR Calc Estimated GFR (MDRD) Non-Af Amer 141 mL/min >60 [facility] Comment on above: Non- GFR Calc RBC Auto (Bld) [#/Vol]Ordere d By: Jan Bolanos on 07-21-2023 RBC (Bld) [#/Vol] 4.52 10*6/uL 4.2-5.4 [facility] Serum or plasma calcium kadi urement (mass/volume)Ordered By: Jan Bolanos on 07-21-2023 Calcium [Mass/Vol] 8.6 mg/dL 8.5-10.1 [facility] Serum or plasma creatinine m easurement (mass/volume)Ordered By: Jan Bolanos on 07-21-2023 Creatinine [Mass/Vol] 0.47 mg/dL 0.55-1.02 [facility] Comment on above: The validity of the calculated GFR & GFRAA in patients over 70 years has not been determined. Clinical correlation is essential. Serum or plasma urea nitroge n measurement (mass/volume)Ordered By: Jan Bolanos on 07-21-2023 Urea nitrogen [Mass/Vol] 13 mg/dL 7-18 [facility] Thin prep Papanicolaou smear with manual screeningOrdered By: Jan Bolanos on 07-21-2023 Thin prep Papanicolaou smear with manual screening 3 5-15 [facility] Absolute lymphocyte countOrd ered By: Dallas Mena on 07-20-2023 Lymphocytes Auto (Unsp spec) [#/Vol] 2.11 10*3/uL 0.83-4.51 [facility] Automated lymphocyte count a s percentage of total leukocytesOrdered By: Dallas Mena on 07-20-2023 Lymphocytes/100 WBC Auto (Unsp spec) 23.7 % 19-41 [facility] Basophil percentageOrdered B y: José Churchenzo on 07-20-2023 Basophil percentage 2.4 mg/dL 2.5-4.9 [facility] Bilirubin [Mass/Vol] 0.40 mg/dL 0.20-1.00 [facility] Comment on above: For patients on eltr ombopag therapy, use of Dimension [place] TBIL is not recommended. Protein [Mass/Vol] 7.4 g/dL 6.4-8.2 [facility] Basophil percentageOrdered B y: Dallas Mena on 07-20-2023 Basophils/100 WBC (Bld) 0.3 % 0-[address] [facility] Chloride [Moles/Vol] 101 mmol/L 98-107 [facility] Eosinophils/100 WBC (Bld) 0.6 % 0-5 [facility] Glucose [Mass/Vol] 129 mg/dL 74-106 [facility] Comment on above: Fasting Glucose resu lt greater than or equal to 126 mg/dL suggests DIABETES MELLITUS per A.D.A. criteria. Hemoglobin (Bld) [Mass/Vol] 14.1 g/dL 12.0-15.0 [facility] Monocytes/100 WBC (Bld) 7.6 % 0-[address] [facility] Neutrophils (Bld) [#/Vol] 6.0 10*3/uL 2.0-7.7 [facility] Neutrophils/100 WBC (Bld) 67.5 % 47-70 [facility] Potassium [Moles/Vol] 3.8 mmol/L 3.5-5.1 [facility] Sodium [Moles/Vol] 139 mmol/L 136-145 [facility] WBC (Bld) [#/Vol] 8.9 10*3/uL 4.4-11.0 [facility] Determination of erythrocyte mean corpuscular volume (MCV)Ordered By: Dallas Mena on 07-20-2023 MCV (RBC) [Entitic vol] 82.8 fL 81-[address] [facility] Erythrocyte distribution wid th ratioOrdered By: Dallas Mena on 07-20-2023 Erythrocyte distribution width (RBC) [Ratio] 13.6 % 11.6-14.6 [facility] Erythrocyte distribution wid th standard deviationOrdered By: Dallas Mena on 07-20-2023 Erythrocyte distribution width (RBC) [Entitic vol] 41.0 fL 35.1-43.9 [facility] Hematocrit Auto (Bld) [Volum e fraction]Ordered By: Dallas Mena on 07-20-2023 Hematocrit (Bld) [Volume fraction] 44.2 % 37-47 [facility] Immature granulocytes/100 WB C Auto (Bld)Ordered By: Dallas Mena on 07-20-2023 Immature granulocytes/100 WBC (Bld) 0.300 % 0.0-0.9 [facility] Comment on above: IG% - Immature Granu locytes (promyelocytes, myelocytes and metamyelocytes) > 1% indicates that a LEFT SHIFT is Present. Laboratory - Chemistry and C hemistry - challengeOrdered By: José Smith on 07-20-2023 Albumin/Globulin [Mass ratio] 0.8 {ratio} 0.9-2.4 [facility] ALP [Catalytic activity/Vol] 72 U/L 45-117 [facility] ALT [Catalytic activity/Vol] 15 U/L 13-56 [facility] Globulin (S) [Mass/Vol] 4.0 g/dL 2.2-4.[address] [facility] Magnesium [Mass/Vol] 2.1 mg/dL 1.6-2.6 [facility] Laboratory - Chemistry and C hemistry - challengeOrdered By: Dallas Mena on 07-20-2023 CO2 [Moles/Vol] 33.0 mmol/L 21.0-32.0 [facility] Urea nitrogen/Creatinine [Mass ratio] 18.7 mg/mg 10-20 [facility] Laboratory - Hematology and Cell countsOrdered By: Dallas Mena on 07-20-2023 MCH (RBC) [Entitic mass] 26.4 pg 27.0-32.0 [facility] MCHC (RBC) [Mass/Vol] 31.9 g/dL 32-36 [facility] Nucleated RBC/100 WBC (Bld) [Ratio] 0 % 0-5 [facility] Platelet mean volume (Bld) [Entitic vol] 9.9 fL 6.2-12.0 [facility] Platelets (Bld) [#/Vol] 233 10*3/uL 150-450 [facility] Laboratory - Microbiology an d Antimicrobial susceptibilityOrdered By: Dallas Mena on 07-20-2023 SARS-CoV-2 (COVID-19) RNA ASPEN+probe Ql (Unsp spec) [facility] No Panel InformationOrdered By: Dallas Mena on 07-20-2023 Estimated Creatinine Clearance Calc 65.47 ml/min [facility] Estimated GFR (MDRD) Amer 108 mL/min >60 [facility] Comment on above: GFR Calc Estimated GFR (MDRD) Non-Af Amer 89 mL/min >60 [facility] Comment on above: Non- GFR Calc RBC Auto (Bld) [#/Vol]Ordere d By: Dallas Mena on 07-20-2023 RBC (Bld) [#/Vol] 5.34 10*6/uL 4.2-5.4 [facility] Serum or plasma calcium kadi urement (mass/volume)Ordered By: Dallas Mena on 07-20-2023 Calcium [Mass/Vol] 8.8 mg/dL 8.5-10.1 [facility] Serum or plasma creatinine m easurement (mass/volume)Ordered By: Dallas Mena on 07-20-2023 Creatinine [Mass/Vol] 0.70 mg/dL 0.55-1.02 [facility] Comment on above: The validity of the calculated GFR & GFRAA in patients over 70 years has not been determined. Clinical correlation is essential. Serum or plasma thyroid stim ulating hormone (TSH) measurement (units/volume)Ordered By: José Smith on 07-20-2023 TSH Qn 0.35 uIU/mL 0.358-3.74 [facility] Serum or plasma urea nitroge n measurement (mass/volume)Ordered By: Dallas Mena on 07-20-2023 Urea nitrogen [Mass/Vol] 13 mg/dL 7-18 [facility] Thin prep Papanicolaou smear with manual screeningOrdered By: José Smith on 07-20-2023 Thin prep Papanicolaou smear with manual screening 3.4 g/dL 3.2-5.0 [facility] Thin prep Papanicolaou smear with manual screening 13 U/L 15- [facility] Thin prep Papanicolaou smear with manual screeningOrdered By: Dallas Mena on 07-20-2023 Thin prep Papanicolaou smear with manual screening 5 5-15 [facility] FECAL OCCULT BLOOD TESTon Lower GI hemoglobin IA Ql (Stl) Negative Negative [facility] OXIMETRY WITH AMBULATIONon 1 [facility] Vital Signs Date Time Vital Sign Value Performing Clinician Faci lity 12-26-2024 20:00-0400 Diastolic blood pressure 81 mm[Hg] Dr. Yoseph Fall MD Work Phone: [phone] [place] [address] 12-26-2024 20:00-0400 Heart rate 106 /min Dr. Yoseph Fall MD Work Phone: 6(654)[phone] [place] [address] 12-26-2024 20:00-0400 Inhaled oxygen flow rate 3 L/min Dr. Yoseph Fall MD Work Phone: 7(005)[phone] [place] [address] 12-26-2024 20:00-0400 Respiratory rate 18 /min Dr. Yoseph Fall MD Work Phone: 7(816)[phone] [place] [address] 12-26-2024 20:00-0400 SaO2% (BldA) [Mass fraction] 97 % Dr. Yoseph Fall MD Work Phone: [facility] 12-26-2024 20:00-0400 Systolic blood pressure 138 mm[Hg] Dr. Yoseph Fall MD Work Phone: [facility] 12-26-2024 19:58-0400 Body temperature 98.6 [degF] Dr. Yoseph Fall MD Work Phone: [facility] 12-26-2024 16:37-0400 Body mass index (BMI) [Ratio] 28 kg/m2 Dr. Yoseph Fall MD Work Phone: [facility] 12-26-2024 16:37-0400 Body weight [address] Yoseph Fall MD Work Phone: [facility] 12-26-2024 13:53-0400 Body height 162.[address] Yoseph Fall MD Work Phone: [facility] 12-15-2024 15:04-0400 Diastolic blood pressure 80 mm[Hg] Zaria Shea MD Work Phone: [facility] [employer] 12-15-2024 15:04-0400 Systolic blood pressure 130 mm[Hg] Zaria Shea MD Work Phone: [facility] [employer] 12-15-2024 14:45-0400 Body height 162.6 cm Rubi Corbett MD Work Phone: [facility] [employer] 12-15-2024 14:45-0400 Body mass index (BMI) [Ratio] 26.61 kg/m2 Rubi Corbett MD Work Phone: [facility] [employer] 12-15-2024 14:45-0400 Body weight 70.31 kg Rubi Corbett MD Work Phone: [facility] [employer] 12-15-2024 14:45-0400 Diastolic blood pressure 90 mm[Hg] Rubi Corbett MD Work Phone: [facility] [employer] 12-15-2024 14:45-0400 Heart rate 99 /min Rubi Corbett MD Work Phone: [facility] [employer] 12-15-2024 14:45-0400 SaO2% (BldA) [Mass fraction] 93 % Rubi Corbett MD Work Phone: [facility] [employer] 12-15-2024 14:45-0400 Systolic blood pressure 164 mm[Hg] Rubi Corbett MD Work Phone: [facility] [employer] 12-15-2024 14:36-0400 Body height 162.6 cm Zaria Shea MD Work Phone: [facility] [employer] 12-15-2024 14:36-0400 Body mass index (BMI) [Ratio] 26.61 kg/m2 Zaria Shea MD Work Phone: [facility] 12-15-2024 14:36-0400 Body weight 70.31 kg Zaria Shea MD Work Phone: [facility] 12-15-2024 14:36-0400 Heart rate 99 /min Zaria Shea MD Work Phone: [facility] 12-15-2024 14:36-0400 SaO2% (BldA) [Mass fraction] 93 % Zaria Shea MD Work Phone: [facility] 11-03-2024 13:06-0400 Body height 162.[address] Yoseph Fall MD Work Phone: [facility] 11-03-2024 13:06-0400 Body mass index (BMI) [Ratio] 25.9 kg/m2 Dr. Yoseph Fall MD Work Phone: [facility] 11-03-2024 13:06-0400 Body weight 68.[address] Yoseph Fall MD Work Phone: [facility] 11-03-2024 13:06-0400 Diastolic blood pressure 65 mm[Hg] Dr. Yoseph Fall MD Work Phone: [facility] 11-03-2024 13:06-0400 Heart rate 86 /min Dr. Yoseph Fall MD Work Phone: [facility] 11-03-2024 13:06-0400 Respiratory rate 20 /min Dr. Yoseph Fall MD Work Phone: [facility] 11-03-2024 13:06-0400 Systolic blood pressure 110 mm[Hg] Dr. Yoseph Fall MD Work Phone: [facility] 10-17-2024 14:32-0400 Body mass index (BMI) [Ratio] 26.22 kg/m2 Yoseph Fall MD Work Phone: [facility] 10-17-2024 14:32-0400 Body temperature 97.81 [degF] Yoseph Fall MD Work Phone: [facility] 10-17-2024 14:32-0400 Body weight 67.13 kg Yoseph Fall MD Work Phone: [facility] 10-17-2024 14:32-0400 Diastolic blood pressure 64 mm[Hg] Yoseph Fall MD Work Phone: [facility] 10-17-2024 14:32-0400 Heart rate 82 /min Yoseph Fall MD Work Phone: [facility] 10-17-2024 14:32-0400 SaO2% (BldA) [Mass fraction] 94 % Yoseph Fall MD Work Phone: [facility] 10-17-2024 14:32-0400 Systolic blood pressure 105 mm[Hg] Yoseph Fall MD Work Phone: [facility] 10-09-2024 15:47-0400 Heart rate 109 /min Dr. Yoseph Fall MD Work Phone: [facility] 10-09-2024 15:47-0400 Respiratory rate 20 /min Dr. Yoseph Fall MD Work Phone: [facility] 10-09-2024 15:37-0400 Inhaled oxygen flow rate 2 L/min Dr. Yoseph Fall MD Work Phone: [facility] 10-09-2024 15:35-0400 Body temperature 98.1 [degF] Dr. Yoseph Fall MD Work Phone: [facility] 10-09-2024 15:35-0400 Diastolic blood pressure 72 mm[Hg] Dr. Yoseph Fall MD Work Phone: [facility] 10-09-2024 15:35-0400 SaO2% (BldA) [Mass fraction] 97 % Dr. Yoseph Fall MD Work Phone: [facility] 10-09-2024 15:35-0400 Systolic blood pressure 142 mm[Hg] Dr. Yoseph Fall MD Work Phone: 6(872)619-243695 [place] [address] 10-09-2024 04:58-0400 Body mass index (BMI) [Ratio] 26.1 kg/m2 Dr. Yoseph Fall MD Work Phone: 3(730)334-063495 [place] [address] 10-09-2024 04:58-0400 Body weight 69.[address] Yoseph Fall MD Work Phone: 4(949)871-569895 [place] [address] 10-08-2024 11:37-0400 Body height 162.[address] Yoseph Fall MD Work Phone: 1(869)547-109195 [place] [address] 09-30-2024 22:20-0400 Inhaled oxygen concentration 30 % Dr. Yoseph Fall MD Work Phone: 4(554)098-510995 [place] [address] 09-29-2024 05:00-0400 Body temperature 98.8 [degF] Dr. Yoseph Fall MD Work Phone: 7(651)685-500395 [place] [address] 09-29-2024 05:00-0400 Diastolic blood pressure 65 mm[Hg] Dr. Yoseph Fall MD Work Phone: 2(864)197-397795 [place] [address] 09-29-2024 05:00-0400 Heart rate 111 /min Dr. Yoseph Fall MD Work Phone: 2(423)990-724695 [place] [address] 09-29-2024 05:00-0400 Respiratory rate 21 /min Dr. Yoseph Fall MD Work Phone: 6(982)605-752495 [place] [address] 09-29-2024 05:00-0400 SaO2% (BldA) [Mass fraction] 96 % Dr. Yoseph Fall MD Work Phone: 7(999)044-489595 [place] [address] 09-29-2024 05:00-0400 Systolic blood pressure 123 mm[Hg] Dr. Yoseph Fall MD Work Phone: 5(057)132-814095 [place] [address] 09-29-2024 03:23-0400 Inhaled oxygen flow rate 3 L/min Dr. Yoseph Fall MD Work Phone: 3(510)805-224995 [place] [address] 09-29-2024 02:19-0400 Body height 162.[address] Yoseph Fall MD Work Phone: [facility] 09-29-2024 02:19-0400 Body mass index (BMI) [Ratio] 27 kg/m2 Dr. Yoseph Fall MD Work Phone: [facility] 09-29-2024 02:19-0400 Body weight 71.[address] Yoseph Fall MD Work Phone: [facility] 04-07-2024 08:39-0500 Body mass index (BMI) [Ratio] 29.23 kg/m2 Yoseph Fall MD Work Phone: [facility] 04-07-2024 08:39-0500 Body temperature 98.1 [degF] Yoseph Fall MD Work Phone: [facility] 04-07-2024 08:39-0500 Body weight 74.84 kg Yoseph Fall MD Work Phone: [facility] 04-07-2024 08:39-0500 Diastolic blood pressure 76 mm[Hg] Yoseph Fall MD Work Phone: [facility] Comment on above: home bp 04-07-2024 08:39-0500 Heart rate 86 /min Yoseph Fall MD Work Phone: [facility] 04-07-2024 08:39-0500 SaO2% (BldA) [Mass fraction] 93 % Yoseph Fall MD Work Phone: [facility] 04-07-2024 08:39-0500 Systolic blood pressure 141 mm[Hg] Yoseph Fall MD Work Phone: [facility] Comment on above: home bp 07-22-2023 17:49-0400 Heart rate 93 /min Dr. Yoseph Fall Work Phone: [facility] 07-22-2023 17:49-0400 Respiratory rate 18 /min Dr. Yoseph Fall Work Phone: [facility] 07-22-2023 16:37-0400 Body temperature 98.7 [degF] Dr. Yoseph Fall Work Phone: [facility] 07-22-2023 16:37-0400 Diastolic blood pressure 68 mm[Hg] Dr. Yoseph Fall Work Phone: [facility] 07-22-2023 16:37-0400 SaO2% (BldA) [Mass fraction] 96 % Dr. Yoseph Fall Work Phone: [facility] 07-22-2023 16:37-0400 Systolic blood pressure 146 mm[Hg] Dr. Yoseph Fall Work Phone: [facility] 07-22-2023 11:00-0400 Inhaled oxygen flow rate 2.5 L/min Dr. Yoseph Fall Work Phone: [facility] 07-22-2023 06:00-0400 Body mass index (BMI) [Ratio] 26.5 kg/m2 Dr. Yoseph Fall Work Phone: [facility] 07-22-2023 06:00-0400 Body weight 70.[address] Yoseph Fall Work Phone: [facility] 07-20-2023 05:02-0400 Body height 162.56 cm [facility] 07-20-2023 05:02-0400 Body mass index (BMI) [Ratio] 26.6 kg/m2 [facility] 07-20-2023 05:02-0400 Body weight 70.6 kg [facility] 07-20-2023 05:00-0400 Body temperature 98.9 [degF] [facility] 07-20-2023 05:00-0400 Diastolic blood pressure 72 mm[Hg] [facility] 07-20-2023 05:00-0400 Heart rate 124 /min [facility] 07-20-2023 05:00-0400 Inhaled oxygen flow rate 3.5 L/min [facility] 07-20-2023 05:00-0400 Respiratory rate 24 /min [facility] 07-20-2023 05:00-0400 SaO2% (BldA) [Mass fraction] 93 % [facility] 07-20-2023 05:00-0400 Systolic blood pressure 124 mm[Hg] [facility] 02-19-2023 14:12-0400 Body weight 73.48 kg Yoseph Fall MD Work Phone: [facility] 02-19-2023 14:12-0400 Diastolic blood pressure 78 mm[Hg] Yoseph Fall MD Work Phone: [facility] 02-19-2023 14:12-0400 Heart rate 100 /min Yoseph Fall MD Work Phone: [facility] 02-19-2023 14:12-0400 Respiratory rate 20 /min Yoseph Fall MD Work Phone: [facility] 02-19-2023 14:12-0400 SaO2% (BldA) [Mass fraction] 96 % Yoseph Fall MD Work Phone: [facility] 02-19-2023 14:12-0400 Systolic blood pressure 130 mm[Hg] Yoseph Fall MD Work Phone: [facility] 05-01-2022 14:41-0500 Body weight 78.47 kg Yoseph Fall MD Work Phone: [facility] 05-01-2022 14:41-0500 Diastolic blood pressure 81 mm[Hg] Yoseph Fall MD Work Phone: [facility] 05-01-2022 14:41-0500 Heart rate 105 /min Yoseph Fall MD Work Phone: [facility] 05-01-2022 14:41-0500 Systolic blood pressure 132 mm[Hg] Yoseph Fall MD Work Phone: [facility] 02-20-2022 13:22-0400 Body weight 77.56 kg Respiratory Wstr Work Phone: [facility] 02-20-2022 13:22-0400 Heart rate 108 /min Respiratory Wstr Work Phone: [facility] 02-20-2022 13:22-0400 Respiratory rate 16 /min Respiratory Wstr Work Phone: [facility] 02-20-2022 13:220400 SaO2% (BldA) [Mass fraction] 93 % Respiratory Wstr Work Phone: [facility] Encounters Encounter Date Encounter Type Care Provider Facility Start: 12-26-2024 Non-patient / Non-visit Dr. Dionne Porter MD -[facility] Work Phone: Start: 12-26-2024 Evaluation and management of inpatient Dr. Dionne Porter MD -Pro[facility] Care Unit Work Phone: Start: 12-26-2024 End: 12-26-2024 Telephone encounter Yoseph Fall MD Work Phone: [facility] [place] Comment on above: Insurance Authorizat ion Start: 12-22-2024 End: 12-22-2024 Telephone encounter Yoseph Fall MD Work Phone: [facility] [place] Comment on above: Patient Update Start: 12-19-2024 End: 12-19-2024 Refill Yoseph Fall MD Work Phone: [facility] [place] Comment on above: Refill Request Start: 12-15-2024 End: 12-15-2024 ambulatory [facility] Start: 12-15-2024 End: 12-15-2024 Office consultation new/estab patient 80 min Rubi Corbett MD Work Phone: [facility] Comment on above: Severe aortic stenos is (Primary Dx); Chronic respiratory failure with hypoxia (HCC) Start: 12-15-2024 End: 12-15-2024 ambulatory RUBI ARIC [facility] Start: 12-15-2024 End: 12-15-2024 Encounter for preprocedural cardiovascular examination [facility] Start: 12-15-2024 End: 12-15-2024 Office outpatient new 60 minutes Zaria Shea MD Work Phone: [facility] Comment on above: Preop cardiovascular exam (Primary Dx); Nonrheumatic aortic valve stenosis Start: 12-15-2024 End: 12-15-2024 Patient encounter status Zaria Shea MD Work Phone: [facility] [employer] Start: 12-08-2024 End: 12-08-2024 Refill Yoseph Fall MD Work Phone: [facility] [place] Comment on above: Refill Request Insurance Authorizat ion Start: 11-27-2024 End: 11-27-2024 Telephone encounter Yoseph Fall MD Work Phone: [facility] [place] Comment on above: [facility] Nursing Call Start: 11-24-2024 End: 11-24-2024 Telephone encounter Connor Valeria HOLM Work Phone: [employer] Comment on above: Care Coordination Start: 11-23-2024 End: 11-23-2024 [facility] Gregor Fernandez APRN.GRAPHIC DESIGN SPECIALIST Work Phone: [employer] Comment on above: Palliative care by s pecialist (Primary Dx); Stage 3 severe COPD by GOLD classification (HCC); Chronic low back pain with sciatica, sciatica laterality unspecified, unspecified back pain laterality; Generalized osteoarthrosis, involving multiple sites; Generalized anxiety disorder; Atrial fibrillation, unspecified type (HCC); History of lung cancer; History of lobectomy of lung; Other chronic pain; Dependence on supplemental oxygen; 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 Refill Request Start: 11-22-2024 End: 11-28-2024 Telephone encounter Zaria Shea MD Work Phone: [facility] [place] Start: 11-21-2024 End: 11-21-2024 ambulatory YOSEPH FALL Facility:[facility] Start: 11-21-2024 End: 11-21-2024 Patient encounter procedure Gregor Fernandez APRN.GRAPHIC DESIGN SPECIALIST Work Phone: [employer] Comment on above: No-show for appointm ent (Primary Dx); Stage 3 severe COPD by GOLD classification (HCC); Chronic low back pain with sciatica, sciatica laterality unspecified, unspecified back pain laterality Start: 11-21-2024 End: 11-21-2024 Telemedicine consultation with patient Gregor Fernandez IMPORT EXPORT AGENT.GRAPHIC DESIGN SPECIALIST Work Phone: [employer] Start: 11-20-2024 End: 11-24-2024 Telephone encounter Yoseph Fall MD Work Phone: [facility] [place] Comment on above: Patient Update Start: 11-10-2024 End: 11-13-2024 Telephone encounter Yoseph Fall MD Work Phone: [facility] [place] Comment on above: Patient Request; Pat ient Update Start: 11-08-2024 End: 11-08-2024 [facility] Jesus Carter IMPORT EXPORT AGENT.GRAPHIC DESIGN SPECIALIST Work Phone: [employer] Comment on above: NO SHOW (Primary Dx) ; Stage 3 severe COPD by GOLD classification (HCC); Generalized osteoarthrosis, involving multiple sites; Generalized anxiety disorder; Chronic low back pain with sciatica, sciatica laterality unspecified, unspecified back pain laterality Start: 11-03-2024 End: 11-03-2024 Patient encounter procedure Lindsay Whitehead [place] -[facility] Work Phone: Start: 11-03-2024 End: 11-03-[address] Yoseph Fall MD Work Phone: -[facility] Start: 10-31-2024 End: 11-01-2024 Refill Yoseph Fall MD Work Phone: [facility] [place] Comment on above: Home Care Management ; Refill Request Start: 10-24-2024 End: 11-03-2024 Telephone encounter Yoseph Fall MD Work Phone: [facility] [facility] Comment on above: pall med- [id number]; Ini tial Consult Patient Request order question Start: 10-23-2024 End: 10-23-2024 Telephone encounter Yoseph Fall MD Work Phone: [facility] [place] Comment on above: Patient Update Start: 10-20-2024 End: 10-20-2024 Telephone encounter Yoseph Fall MD Work Phone: [facility] [place] Comment on above: Patient Update; Medi cation Request Start: 10-19-2024 End: 10-20-2024 Telephone encounter Yoseph Fall MD Work Phone: [facility] [place] Comment on above: Patient Update Start: 10-18-2024 End: 10-20-2024 Telephone encounter Yoseph Fall MD Work Phone: [facility] [place] Comment on above: Orders; Occupation T herapy Plan of care (SW Consult); Physical Therapy Plan of Care Start: 10-17-2024 End: 10-17-2024 ambulatory YOSEPH FALL Facility:[facility] Start: 10-17-2024 End: 10-17-2024 Transitional care manage srvc 14 day discharge Yoseph Fall MD Work Phone: [facility] Comment on above: Stage 3 severe COPD by GOLD classification (HCC) (Primary Dx); Chronic low back pain with sciatica, sciatica laterality unspecified, unspecified back pain laterality; Essential hypertension, benign; Tobacco use disorder; Generalized anxiety disorder; Aortic valve stenosis, etiology of cardiac valve disease unspecified Start: 10-13-2024 End: 10-13-2024 Telephone encounter Yoseph Fall MD Work Phone: [facility] Comment on above: PT Delay in Care Ord er Start: 10-12-2024 End: 10-17-2024 Refill Yoseph Fall MD Work Phone: [facility] Comment on above: Refill Request Start: 10-11-2024 End: 10-12-2024 Refill Yoseph Fall MD Work Phone: [facility] Comment on above: Refill Request Start: 10-10-2024 End: 10-12-2024 ambulatory Naima Haines MA [facility] Start: 10-10-2024 End: 10-12-2024 Telephone encounter Yoseph Fall MD Work Phone: [facility] Comment on above: [facility] patient updat e Transition Of Care Start: 10-09-2024 Non-patient / Non-visit Dr. Alessandro Palma MD [facility] Work Phone: Start: 10-09-2024 End: 10-10-2024 Telephone encounter Yoseph Flal MD Work Phone: [facility] Comment on above: Patient Update Orders Medication Problem; Patient Update Start: 10-08-2024 Non-patient / Non-visit Dr. Lynne Schafer MD [facility] Work Phone: Start: 10-07-2024 Non-patient / Non-visit Dr. Lynne Schafer MD [facility] Work Phone: Start: 10-07-2024 Non-patient / Non-visit Dr. Michael Plasencia MD [facility] Start: 10-06-2024 Non-patient / Non-visit Dr. Lynne Schafer MD [facility] Work Phone: Start: 10-06-2024 Non-patient / Non-visit Dr. Michael Plasencia MD [facility] Start: 10-05-2024 Non-patient / Non-visit Dr. Lynne Schafer MD [facility] Work Phone: Start: 10-04-2024 Non-patient / Non-visit Dr. Lynne Schafer MD [facility] Work Phone: Start: 10-04-2024 [facility] Start: 10-03-2024 Non-patient / Non-visit Dr. Lynne Schafer MD [facility] Work Phone: Start: 10-03-2024 [facility] / [facility] Start: 10-02-2024 ambulatory Dillon Lopez Facility:[facility] Start: 10-02-2024 Non-patient / Non-visit Dr. Dillon geiger MD [facility] Start: 10-02-2024 Non-patient / Non-visit Dr. Lynne Schafer MD [facility] Work Phone: Start: 10-01-2024 Non-patient / Non-visit Dr. April Bolanos MD [facility] Work Phone: Start: 09-30-2024 Non-patient / Non-visit Dr. April Bolanos MD [facility] Work Phone: Start: 09-29-2024 ambulatory Dionne Porter Facility :[facility] Start: 09-29-2024 End: 10-09-2024 Evaluation and management of inpatient Dr. Alessandro Palma MD -[facility] Work Phone: Start: 09-29-2024 Evaluation and management of inpatient Dr. Dionne Porter MD [facility] Work Phone: Start: 09-29-[address] Yoseph Fall MD Work Phone: [facility] Work Phone: Start: 09-29-2024 ambulatory Yoseph Lewis y:[facility] Start: 09-29-2024 Non-patient / Non-visit Dr. Dionne Porter MD [facility] Work Phone: Start: 09-28-2024 End: 09-28-2024 Refill Yoseph Fall MD Work Phone: [facility] Comment on above: Refill Request Start: 08-29-2024 End: 08-29-2024 Refill Yoseph Fall MD Work Phone: [address] [place] [address] Comment on above: Refill Request Start: 08-15-2024 End: 08-15-2024 Refill Yoseph Fall MD Work Phone: [facility] Comment on above: Refill Request Start: 07-24-2024 End: 07-24-2024 Telephone encounter Yoseph Fall MD Work Phone: [facility] Comment on above: Patient Update; Medi cation Request Start: 07-12-2024 End: 07-12-2024 Telephone encounter Yoseph Fall MD Work Phone: [facility] Comment on above: Chart Notes Start: 07-06-2024 [...] [place] Comment on above: Refill Request Start: 06-19-2024 End: 06-19-2024 Refill Yoseph Fall MD Work Phone: [facility] Comment on above: Refill Request Start: 06-12-2024 End: 06-12-2024 Telephone encounter Yoseph Fall MD Work Phone: [facility] Comment on above: Forms ([employer]) Start: 06-02-2024 End: 06-07-2024 Telephone encounter Yoseph Fall MD Work Phone: [facility] [place] Comment on above: Insurance Authorizat ion Start: 06-01-2024 End: 06-01-2024 Refill Yoseph Fall MD Work Phone: [facility] Comment on above: Refill Request; Medi cation [...] Telephone encounter Yoseph Fall MD Work Phone: [facility] Comment on above: Patient Question Start: 03-20-2024 End: 03-20-2024 Refill Yoseph Fall MD Work Phone: [facility] Comment on above: Refill Request Start: 03-03-2024 End: 03-03-2024 Refill Yoseph Fall MD Work Phone: [facility] Comment on above: Refill Request Start: 02-14-2024 End: 02-14-2024 Refill Yoseph aFll MD Work Phone: [facility] Comment on above: Refill Request Start: 02-03-2024 End: 02-04-2024 Telephone encounter Yoseph Fall MD Work Phone: [facility] Comment on above: Patient Question Start: 01-18-2024 End: 01-18-2024 Refill Yoseph Fall MD Work Phone: [facility] Comment on above: Refill Request Start: 12-24-2023 End: 12-24-2023 Refill Yoseph Fall MD Work Phone: [facility] Comment on above: Refill Request Start: 11-29-2023 End: 11-29-2023 Distance [facility] Yoseph Fall MD Work Phone: [facility] Comment on above: Stage 3 severe COPD by GOLD classification (HCC) (Primary Dx); Generalized osteoarthrosis, involving multiple sites; Chronic low back pain with sciatica, sciatica laterality unspecified, unspecified back pain laterality; Essential hypertension, benign; Tobacco use disorder; Dysthymic disorder Start: 11-16-2023 Refill Yoseph emmanuel MD Work Phone: [facility] Comment on above: Refill Request Start: 11-08-2023 Telephone encounter Yoseph lei MD Work Phone: [facility] Comment on above: Insurance Authorizat ion Start: 11-05-2023 Refill Yoseph emmanuel MD Work Phone: [facility] Comment on above: Refill Request Start: 10-22-2023 Telephone encounter Yoseph lei MD Work Phone: [address] [place] [address] Comment on above: Medication Request ( Requesting antibiotic) Start: 10-18-2023 Refill Yoseph emmanuel MD Work Phone: [facility] Comment on above: Refill Request Start: 10-01-2023 Telephone encounter Yoseph lei MD Work Phone: [facility] Comment on above: Medication Problem Start: 09-22-2023 Refill Yoseph emmanuel MD Work Phone: [facility] Comment on above: Refill Request Start: 09-15-2023 Refill Yoseph emmanuel MD Work Phone: [facility] Comment on above: Refill Request Start: 08-23-2023 End: 08-23-2023 Distance [facility] Yoseph Fall MD Work Phone: [facility] Comment on above: Stage 3 severe COPD by GOLD classification ([facility]) (Primary Dx); Essential hypertension, benign; Cigarette smoker; Generalized anxiety disorder; Chronic low back pain with sciatica, sciatica laterality unspecified, unspecified back pain laterality Start: 07-27-2023 Refill Yoseph emmanuel MD Work Phone: [facility] Comment on above: Refill Request Start: 07-26-2023 End: 07-26-2023 Patient Outreach Yoseph Fall MD Work Phone: [facility] Comment on above: Transition Of Care Obstructive [...] [facility] Work Phone: Start: 07-20-2023 End: 07-22-2023 [facility]: Start: 07-19-2023 Telephone encounter Yoseph lei MD Work Phone: [facility] Comment on above: Medication Request; Cough Start: 06-28-2023 Refill Yoseph emmanuel MD Work Phone: [facility] Comment on above: Med Change Request Start: 06-17-2023 Telephone encounter Yoseph lei MD Work Phone: [facility] Comment on above: Forms ([employer] re: incontinence supplies) Start: 06-16-2023 ambulatory Yoseph emmanuel MD Work Phone: [facility] [place] Start: 06-15-2023 Telephone encounter Yoseph lei MD Work Phone: [facility] Comment on above: Mouth/Lip Problem Start: 06-14-2023 Telephone encounter Yoseph lei MD Work Phone: [facility] [place] Comment on above: Insurance Authorizat ion Start: 06-11-2023 Refill Yoseph emmanuel MD Work Phone: [facility] Comment on above: Refill Request Start: 03-30-2023 Telephone encounter Yoseph lei MD Work Phone: [facility] Start: 03-17-2023 Refill Yoseph emmanuel MD Work Phone: [facility] Comment on above: Refill Request Start: 02-19-2023 End: 02-19-2023 Patient encounter procedure Yoseph Fall MD Work Phone: [facility] Comment on above: Chronic low back geoffrey n with sciatica, sciatica laterality unspecified, unspecified back pain laterality (Primary Dx); Generalized osteoarthrosis, involving multiple sites; Generalized anxiety disorder; Depression, unspecified depression type; Essential hypertension, benign; Elevated glucose; Stage 3 severe COPD by GOLD classification ([facility]); Gastroesophageal reflux disease, unspecified whether esophagitis present; Chronic obstructive pulmonary disease, unspecified COPD type ([facility]); Uncomplicated asthma, unspecified asthma severity, unspecified whether persistent; Tobacco use disorder; Need for influenza vaccination; Encounter for medication monitoring Start: 01-15-2023 Refill Yoseph emmanuel MD Work Phone: [facility] Comment on above: Refill Request Start: 12-29-2022 Refill Yoseph emmanuel MD Work Phone: [facility] Comment on above: Refill Request Start: 12-10-2022 Telephone encounter Yoseph lei MD Work Phone: [facility] Comment on above: Orders Start: 11-06-2022 Refill Nelson BOWMAN RN.[facility] Work Phone: [facility] Comment on above: Refill Request Start: 11-05-2022 Refill Nelson BOWMAN RN.[facility] Work Phone: [facility] Comment on above: Refill Request Start: 08-21-2022 Telephone encounter Yoseph lei MD Work Phone: [facility] Comment on above: Patient Request Start: 07-02-2022 Telephone encounter Yoseph lei MD Work Phone: [facility] Comment on above: Forms (Incontinence supply form) Start: 06-29-2022 Refill Yoseph emmanuel MD Work Phone: [facility] Comment on above: Refill Request Start: 06-08-2022 Refill Yoseph emmanuel MD Work Phone: [facility] Comment on above: Refill Request Start: 05-15-2022 Refill Yoseph emmanuel MD Work Phone: [facility] Comment on above: Refill Request Start: 05-05-2022 Refill Yoseph emmanuel MD Work Phone: [facility] Comment on above: Refill Request Start: 05-01-2022 End: 05-01-2022 [facility] Yoseph Fall MD Work Phone: [facility] [place] Comment on above: Stage 3 severe COPD by GOLD classification (HCC) (Primary Dx); Chronic low back pain with sciatica, sciatica laterality unspecified, unspecified back pain laterality; Chronic respiratory failure with hypoxia (HCC); Essential hypertension, benign; Generalized anxiety disorder; Tobacco use disorder Start: 04-21-2022 Refill Yoseph emmanuel MD Work Phone: [facility] [place] Comment on above: Refill Request Start: 02-27-2022 Telephone encounter Mercedez Zarate PA-C Work Phone: [facility] Comment on above: Orders Start: 02-20-2022 End: 02-20-2022 ambulatory Respiratory Therapist [facility] Work Phone: [facility] Comment on above: Spirometry Start: 02-20-2022 End: 02-20-2022 Patient encounter procedure Respiratory Therapist [facility] Work Phone: [facility] Start: 01-20-2022 Refill Yoseph emmanuel MD Work Phone: [facility] Comment on above: Refill Request Start: 01-13-2022 Orders Only Michelle Guzmán MD Work Phone: [facility] Comment on above: Chronic obstructive pulmonary disease, unspecified COPD type (HCC) (Primary Dx) Start: 01-08-2022 Telephone encounter Michelle Guzmán MD Work Phone: [facility] Comment on above: Orders Start: 12-18-2021 Refill Yoseph emmanuel MD Work Phone: [facility] Comment on above: Refill Request Start: 11-17-2021 Refill Yoseph emmanuel MD Work Phone: [facility] Comment on above: Refill Request Start: 10-17-2021 End: 10-17-2021 Distance [facility] Yoseph Fall MD Work Phone: [facility] Comment on above: Chronic obstructive pulmonary disease, unspecified COPD type (HCC) (Primary Dx); Chronic low back pain with sciatica, sciatica laterality unspecified, unspecified back pain laterality; Essential hypertension, benign; Uncomplicated asthma, unspecified asthma severity, unspecified whether persistent; Generalized anxiety disorder Start: 09-30-2021 Refill Yoseph emmanuel MD Work Phone: [facility] Comment on above: Refill Request Start: 09-15-2021 Refill Yoseph emmanuel MD Work Phone: [facility] Comment on above: Refill Request Start: 08-27-2021 Refill Yoseph emmanuel MD Work Phone: [facility] Comment on above: Refill Request Start: 08-18-2021 Refill Yoseph emmanuel MD Work Phone: [facility] Comment on above: Refill Request Start: 08-01-2021 Orders Only Yoseph emmanuel MD Work Phone: [facility] Comment on above: Essential hypertensi on, benign (Primary Dx); Elevated glucose Procedures Date Procedure Procedure Detail Performing Clinician Start: 12-26-[address] Yoseph Fall MD Work Phone: Start: 12-26-2024 Carbon dioxide measurement, partial pressure Dr. Yoseph Fall MD Work Phone: Start: 12-26-2024 Gases blood o2 saturation only direct kadi Dr. Yoseph Fall MD Work Phone: Start: 12-26-2024 Measurement of partial pressure of oxygen in blood Dr. Yoseph Fall MD Work Phone: Start: 12-26-[address] Yoseph Fall MD Work Phone: Start: 12-26-[address] Yoseph Fall MD Work Phone: Start: 12-26-2024 Plain chest X-ray Dr. Yoseph Fall MD Work Phone: Start: 12-15-2024 Comprehensive metabolic panel Zaria Shea MD Work Phone: Start: 12-15-2024 Ecg routine ecg w/least 12 lds trcg only w/o i&r Zaria Shea MD Work Phone: Start: 10-09-[address] Yoseph Fall MD Work Phone: Start: 09-29-[address] Yoseph edward MD Work Phone: Start: 09-29-[address] Yoseph Fall MD Work Phone: Start: 09-29-[address] Yoseph Fall MD Work Phone: Start: 09-29-2024 SARS-CoV-2, Influenza & RSV (PCR) Dr. Yoseph Fall MD Work Phone: Start: 09-29-2024 Carbon dioxide measurement, partial pressure Dr. Yoseph Fall MD Work Phone: Start: 09-29-2024 Gases blood o2 saturation only direct kadi Dr. Yoseph Fall MD Work Phone: Start: 09-29-2024 Measurement of partial pressure of oxygen in blood Dr. Yoseph Fall MD Work Phone: Start: 09-29-[address] Yoseph Fall MD Work Phone: Start: 09-29-2024 X-ray of chest, PA and lateral views Dr. Yoseph Fall MD Work Phone: Start: 09-29-[address] Yoseph Fall MD Work Phone: Start: 07-21-2023 Investigation of transfusion reaction Dr. [...] - S avelino or Plasma Lipid Screening [facility] Start: 02-20-2028 Lipid panel [facility] Start: 02-19-2026 Diabetes Screening Diabetes Screenin g [facility] Start: 10-17-2025 Annual PCP Team Second Cutter yakov Disease Visit Annual PCP Team Chronic Disease Visit [facility] Start: 07-06-2025 Annual PCP Team Second Cutter yakov Disease Visit Annual PCP Team Chronic Disease Visit [facility] Start: 07-06-2025 Screening for malign ant neoplasm of breast Mammogram Screening [facility] Comment on above: Postponed from 10/16 (Declined at this time) Start: 04-07-2025 Annual PCP Team Second Cutter yakov Disease Visit Annual PCP Team Chronic Disease Visit [facility] Start: 01-23-2025 End: 01-23-2025 ambulatory 01/23/2025 9:00 AM FREEjit Scribz [address] [place] [address] [address] [place] [address] Gregor Fernandez APRN.[address] [id number] 2 month@[employer] Comment on above: [id number] 2 month@2month Start: 01-19-2025 End: 01-19-2025 Patient encounter procedure 01/19/2025 2:20 PM EDT Office Visit [facility] [address] [place] [address] Yoseph Fall MD [address] [place], [place] [id number] 3 month follow up [facility] Comment on above: 3 month follow up Start: 12-27-2024 [facility] Start: 12-26-2024 Gas panel - Arterial blood [facility] Start: 12-26-2024 Measurement of occul t blood in stool specimen using immunoassay [facility] Start: 12-26-2024 Verification routine [facility] Start: 12-26-2024 Admission procedure [facility] Start: 12-26-2024 Hospital admission, emergency, from emergency room, medical nature [facility] Start: 12-26-2024 End: 12-26-2024 [facility] Start: 12-25-2024 Influenza vaccination [facility] Start: 12-22-2024 Subsequent hospital visit by physician 12/22/2024 Hospital Encounter [facility] [address] [place] [address] [phone] Zaria Shea MD [address] [place] [id number] [facility] Start: 12-15-2024 End: 12-15-2024 Patient encounter procedure [facility] Start: 11-28-2024 Annual PCP Team Second Cutter yakov Disease Visit Annual PCP Team Chronic Disease Visit [facility] Start: 11-23-2024 End: 11-23-2024 ambulatory 11/23/2024 9:00 AM EDT [facility] [address] [place] [address] Gregor Fernandez, ABRAHAM.GRAPHIC DESIGN SPECIALIST [address] [place] [id number] confirmed 11/21/24 [facility] Comment on above: [id number] confirmed 10/25 01/18 mp Start: 11-08-2024 End: 11-08-2024 ambulatory 11/08/2024 2:30 PM EDT [facility] [address] [place] [address] Jesus Carter, IMPORT EXPORT AGENT.GRAPHIC DESIGN SPECIALIST [address] [place] [id number] [employer] Comment on above: [id number] Start: 10-17-2024 End: 10-17-2024 Patient encounter procedure 10/17/2024 2:20 PM EDT Office Visit [facility] [address] [place] [address] Yoseph Fall MD [address] [place], [place] [address] [facility]09[facility] Comment on above: Discharged 10/09/24 W - COPD exacerbation Start: 10-09-2024 Patient discharge [facility] Start: 10-06-2024 End: 10-06-2024 Referral to service [facility] Start: 10-04-2024 Referral to occupati onal therapist [facility] Start: 10-04-2024 Referral to service [facility] Start: 10-03-2024 Care planning and pr oblem solving actions [facility] Start: 10-03-2024 [facility] Start: 10-02-2024 Care planning and pr oblem solving actions [facility] Start: 10-02-2024 Referral to car restorer [facility] Start: 10-02-2024 [facility] Start: 09-29-2024 Admission procedure [facility] Start: 09-29-2024 Following clinical p athway protocol [facility] Start: 09-29-2024 Assessment of risk o f venous thromboembolism [facility] Start: 09-29-2024 Inhalation therapy procedure [facility] Start: 09-29-2024 Insertion of cathete r into peripheral vein [facility] Start: 09-29-2024 Introduction of urin asher catheter [facility] Start: 09-29-2024 Measuring intake and output [facility] Start: 09-29-2024 Oxygen therapy [facility] Start: 09-29-2024 Providing care accor ding to standard [facility] Start: 09-29-2024 Provision of activit y privileges [facility] Start: 09-29-2024 Referral to service [facility] Start: 09-29-2024 [facility] Start: 09-29-2024 Respiratory pathogen s DNA and RNA panel - Respiratory specimen by ASPEN with probe detection [facility] Start: 09-29-2024 Verification routine [facility] Start: 09-29-2024 Admission procedure [facility] Start: 09-29-2024 Hospital admission, emergency, from emergency room, medical nature [facility] Start: 08-22-2024 Annual PCP Team Second Cutter yakov Disease Visit Annual PCP Team Chronic Disease Visit [facility] Start: 07-25-2024 Annual PCP Team Second Cutter yakov Disease Visit Annual PCP Team Chronic Disease Visit [facility] Start: 07-12-2024 DIABETES SCREEN DIABETES SCREEN [facility] Start: 07-12-2024 Diabetes Screening Diabetes Screenin g [facility] Start: 07-06-2024 End: 07-06-2024 ambulatory 07/06/2024 2:00 PM EDT [facility] [address] [place], [place] [id number] Yoseph Fall MD [address] [place], [place] [id number] 3 mo f/u - Phone visit Family [facility] Comment on above: 3 mo f/u - Phone vis it Start: 05-24-2024 Annual PCP Team Second Cutter yakov Disease Visit Annual PCP Team Chronic Disease Visit [facility] Start: 04-26-2024 Advance Directive Discussion Advance Directive Discussion [facility] Start: 04-26-2024 Medicare Advantage A nnual Wellness Visit Medicare Advantage Annual Wellness Visit [facility] Start: 04-07-2024 End: 04-07-2024 Telephone follow-up 04/07/2024 8:40 AM EST [facility] [address] [place] [id number] Yoseph Fall MD [address] [id number] phone call 4 month follow up [facility] Comment on above: phone call 4 month f ollow up Start: 02-20-2024 Annual PCP Team Second Cutter yakov Disease Visit Annual PCP Team Chronic Disease Visit [facility] Start: 02-20-2024 Diabetes mellitus screening Diabetes Screening [facility] Start: 02-09-2024 Lipid 1996 panel - S avelino or Plasma Lipid Screening [facility] Start: 02-09-2024 LIPID SCREEN LIPID SCREEN [facility] Start: 01-25-2024 Colorectal Cancer Screening Colorectal Cancer Screening [facility] Start: 01-25-2024 Fecal Occult Blood Fecal Occult Bloo d [facility] Start: 01-25-2024 Screening for malign ant neoplasm of colon [facility] Start: 12-26-2023 Covid-19 Vaccine ( season) Covid-19 Vaccine ( [facility]) [facility] [place] Start: 12-26-2023 Influenza vaccination Influenza Vacc ine (#1) [facility] Start: 11-29-2023 End: 11-29-2023 Telephone follow-up 11/29/2023 5:40 PM EDT [facility] [address] [place] [address] Yoseph Fall MD [address] [place], [place] [id number] phone call-3 month follow up Family [facility] Comment on above: phone call-3 month f ollow up Start: 11-23-2023 End: 11-23-2023 Telephone follow-up 11/23/2023 3:00 PM EDT [facility] [place] [address] [place] [address] Yoseph Fall MD [address] [place] [address] phone call-3 month follow up [facility] [place] Comment on above: phone call-3 month f ollow up Start: 11-14-2023 ANNUAL PCP TEAM MINERAL ENGINEER YAKOV DISEASE VISIT ANNUAL PCP TEAM CHRONIC DISEASE VISIT [facility] [place] Start: 10-25-2023 DTaP/Tdap/Td Vaccine s (2 - Td or Tdap) DTaP/Tdap/Td Vaccines (2 - Td or Tdap) [facility] Start: 10-25-2023 Urine microalbumin profile [facility] [place] Start: 08-08-2023 ANNUAL PCP TEAM MINERAL ENGINEER YAKOV DISEASE VISIT ANNUAL PCP TEAM CHRONIC DISEASE VISIT [facility] Start: 07-22-2023 Patient discharge [facility] Start: 07-21-2023 Respiratory microbia l culture Respiratory Culture [facility] Start: 07-20-2023 Thyroid stimulating hormone measurement [facility] Start: 07-20-2023 [facility] Start: 07-20-2023 Following clinical p athway protocol [facility] Start: 07-20-2023 Assessment of risk o f venous thromboembolism [facility] Start: 07-20-2023 Contact precautions [facility] Start: 07-20-2023 Incentive spirometry [facility] Start: 07-20-2023 Insertion of cathete r into peripheral vein [facility] Start: 07-20-2023 Measuring intake and output [facility] Start: 07-20-2023 Oxygen therapy [facility] Start: 07-20-2023 Providing care accor ding to standard [facility] Start: 07-20-2023 Provision of activit y privileges [facility] Start: 07-20-2023 Referral to service [facility] Start: 07-20-2023 Respiratory secretio n precautions [facility] Start: 07-20-2023 Respiratory therapy [facility] Start: 07-20-2023 Tobacco use cessatio n education [facility] Start: 07-20-2023 [facility] Start: 07-20-2023 Verification routine [facility] Start: 07-20-2023 Admission procedure [facility] Start: 07-20-2023 Patient referral to dietitian [facility] Start: 05-01-2023 ANNUAL PCP TEAM MINERAL ENGINEER YAKOV DISEASE VISIT ANNUAL PCP TEAM CHRONIC DISEASE VISIT [facility] [place] Start: 04-26-2023 Advance Directive Discussion Advance Directive Discussion [facility] Start: 02-19-2023 End: 05-21-2023 CBC W Auto Differential panel - Blood [facility] Work Phone: Comment on above: Expected: 02/19/2023 , Expires: 05/21/2023 Start: 02-19-2023 End: 05-21-2023 Comprehensive metabolic 2000 panel - Serum or Plasma [facility] Work Phone: Comment on above: Expected: 02/19/2023 (Approximate), Expires: 05/21/2023 Start: 02-19-2023 End: 05-21-2023 Hemoglobin A1c in Blood [facility] Work Phone: Comment on above: Expected: 02/19/2023 , Expires: 05/21/2023 Start: 02-19-2023 End: 05-21-2023 LIPID PANEL, NONFASTING [facility] Work Phone: Comment on above: Expected: 02/19/2023 , Expires: 05/21/2023 Start: 02-19-2023 End: 05-21-2023 PAIN PANEL, UR QUANT [facility] Work Phone: Comment on above: Expected: 02/19/2023 , Expires: 05/21/2023 Start: 02-19-2023 End: 05-21-2023 TOX SCREEN ROUT UR [facility] Work Phone: Comment on above: Expected: 02/19/2023 , Expires: 05/21/2023 Start: 01-23-2023 ANNUAL PCP TEAM MINERAL ENGINEER YAKOV DISEASE VISIT ANNUAL PCP TEAM CHRONIC DISEASE VISIT [facility] [place] Start: 12-25-2022 Covid-19 Vaccine ( season) Covid-19 Vaccine (2022- season) [facility] Start: 12-25-2022 Influenza vaccination C [facility] Start: 10-17-2022 ANNUAL PCP TEAM MINERAL ENGINEER YAKOV DISEASE VISIT ANNUAL PCP TEAM CHRONIC DISEASE VISIT [facility] Start: 08-21-2022 COVID-19 VACCINE (5 - Moderna series) COVID-19 VACCINE (5 - Moderna series) [facility] Start: 07-17-2022 ANNUAL PCP TEAM MINERAL ENGINEER YAKOV DISEASE VISIT ANNUAL PCP TEAM CHRONIC DISEASE VISIT [facility] Start: 07-17-2022 BP CONTROLLED (<130/80) BP CONTROLLE D (<130/80) [facility] Start: 04-26-2022 ADVANCE DIRECTIVE DISCUSSION ADVANCE DIRECTIVE DISCUSSION [facility] Start: 12-25-2021 Influenza vaccination C [facility] Start: 12-12-2021 COVID-19 VACCINE (4 - Booster for Moderna series) COVID-19 VACCINE (4 - Booster for Moderna series) [facility] Start: 10-06-2021 COVID-19 VACCINE (3 - Booster for Moderna series) COVID-19 VACCINE (3 - Booster for Moderna series) [facility] Start: 08-01-2021 End: 10-01-2021 LIPID PANEL BASIC LIPID PANEL BASIC Lab Routine Essential hypertension, benign Elevated glucose Expected: 08/01/2021, Expires: 10/01/2021 [facility] Work Phone: Comment on above: Expected: 08/01/2021 , Expires: 10/01/2021 Start: 07-03-2021 COVID-19 VACCINE (3 - Booster for Moderna series) COVID-19 VACCINE (3 - Booster for Moderna series) [facility] Start: 2020 BONE DENSITY BONE DENSITY [facility] Start: 2020 Bone Density Screening Bone Density Screening [facility] Start: 2020 Screening for osteoporosis Bone Dens ity Screening [facility] Start: 02-14-2020 COLORECTAL CANCER SCREENING COLORECTAL CANCER SCREENING [facility] Start: 02-14-2020 FECAL OCCULT BLOOD FECAL OCCULT BLOO D [facility] Start: 10-16-2016 Mammography [facility] Start: 10-16-2016 Screening for malign ant neoplasm of breast Mammogram Screening [facility] Start: 10-24-2015 PAP TESTING PAP TESTING [facility] Start: 10-24-2015 Screening for malign ant neoplasm of cervix [facility] Start: 2015 RSV Immunization for Adults (1 - Risk 60-74 years 1-dose series) RSV Immunization for Adults (1 - Risk 60-74 years 1-dose series) [facility] Start: 2015 RSV Vaccine (1 - 1-d ose 60+ series) RSV Vaccine (1 - 1-dose 60+ series) [facility] Start: 2015 RSV Vaccine (1 - Ris k 60-74 years 1-dose series) RSV Vaccine (1 - Risk 60-74 years 1-dose series) [facility] Start: 2005 SHINGRIX VACCINE (1 of 2) CASTANON GRIX VACCINE (1 of 2) [facility] Start: 2005 Zoster Vaccines (1 of 2) Zoste r Vaccines (1 of 2) [facility] Start: 2000 COLOGUARD (FIT-DNA) COLOGUARD (FIT-D NA) [facility] Start: 2000 Colonoscopy COLONOSCOPY [facility] Start: [address] COLONOGRAPHY [facility] Start: 2000 Screening for malign ant neoplasm of colon [facility] Start: 2000 SIGMOIDOSCOPY SIGMOIDOSCOPY [facility] Start: 1995 Screening for malign ant neoplasm of breast Mammogram [facility] Start: 1985 Zoledronic acid therapy ALPHA- 1 ANTITRYPSIN DEFICIENCY SCREENING [facility] Start: 1973 BP CONTROLLED (<130/80) BP CONTROLLE D (<130/80) [facility] Start: 1973 Diabetes mellitus screening Diabetes Screening [facility] Start: 1973 Hepatitis C screening Hepatitis C Sc reening [facility] Start: 1967 Depression Monitoring Depression Mon itoring [facility] Start: 1955 Screening for malign ant neoplasm of colon [facility] Start: 1955 Screening for osteoporosis Bone Dens ity Scan [facility] Alanine aminotransfe rase [Enzymatic activity/volume] in Serum or Plasma [facility] Albumin [Mass/volume ] in Serum or Plasma [facility] Alkaline phosphatase [Enzymatic activity/volume] in Serum or Plasma [facility] Anion gap measurement [facility] Aspartate aminotrans ferase [Enzymatic activity/volume] in Serum or Plasma [facility] Bilirubin, total measurement [facility] BUN/Creatinine ratio [facility] Calcium [Mass/volume ] in Serum or Plasma [facility] Carbon dioxide, tota l [Moles/volume] in Serum or Plasma [facility] Chloride [Moles/volu me] in Serum or Plasma [facility] COLOGUARD COLOGUARD Lab Ro utine Screening for colon cancer Ordered: 07/06/2024 [facility] Work Phone: Comment on above: Ordered: 07/06/2024 Creatinine [Moles/vo lume] in Serum or Plasma [facility] End: 06-15-2025 DBT Breast - bilateral screening MICKIE SCREENING W RASHAUN Radiology Routine Encounter for screening mammogram for breast cancer 1 Occurrences starting 05/16/2024 until 06/15/2025 [facility] Work Phone: Comment on above: 1 Occurrences starti ng 05/16/2024 until 06/15/2025 ECG 12 lead - CLINIC PERFORMED ECG 12 lead - CLINIC PERFORMED CV ECG Routine Preop cardiovascular exam 12/15/2024 2:38 PM EDT Done In :[facility] Work Phone: Erythrocyte mean corpuscular volume determination [facility] Ferritin [Mass/volum e] in Serum or Plasma [facility] Glucose [Mass/volume ] in Serum or Plasma [facility] Hematocrit [Volume Fraction] of Blood [facility] Hemoglobin [Mass/vol ume] in Blood [facility] Iron [Mass/mass] in Unspecified specimen [facility] Iron saturation [Mas s Fraction] in Serum or Plasma [facility] LEFT AND RIGHT HEART CATH / CORONARY ANGIOGRAPHY LEFT AND RIGHT HEART CATH / CORONARY ANGIOGRAPHY Preop cardiovascular exam [facility] [employer] Leukocytes [#/volume ] in Blood [facility] Magnesium [Mass/volu me] in Serum or Plasma [facility] Magnesium measurement [facility] Mean corpuscular hemoglobin concentration determination [facility] Mean corpuscular hemoglobin determination [facility] Measurement of renal function [facility] End: 07-15-2024 MG Breast Screening MICKIE SCREENING Radiology Routine Encounter for screening mammogram for breast cancer 1 Occurrences starting 06/16/2023 until 07/15/2024 [facility] Work Phone: Comment on above: 1 Occurrences starti ng 06/16/2023 until 07/15/2024 Neutrophil count [facility] Neutrophil percent differential count [facility] End: 02-12-2023 OXIMETRY WITH AMBULATION OXIMETRY WITH AMBULATION PFT Routine Chronic obstructive pulmonary disease, unspecified COPD type (HCC) 1 Occurrences starting 01/13/2022 until 02/12/2023 [facility] Work Phone: Comment on above: 1 Occurrences starti ng 01/13/2022 until 02/12/2023 Patient referral [facility] Work Phone: Platelets [#/volume] in Blood [facility] Potassium [Moles/vol ume] in Serum or Plasma [facility] Red blood cell count [facility] Red cell distributio n width determination [facility] Respiratory pathogen s DNA and RNA panel - Respiratory specimen by ASPEN with probe detection [facility] Serum inorganic phos phate measurement [facility] Sodium [Moles/volume ] in Serum or Plasma [facility] Total iron binding capacity measurement [facility] Total protein measurement [facility] Troponin T.cardiac [Mass/volume] in Serum or Plasma by High sensitivity method [facility] Urea nitrogen [Mass/volume] in Serum or Plasma [facility] Immunizations Immunization Date Immunization Notes Care Provider [facility] 02-19-2023 influenza (HD-IIV4) vaccine, age 65+ yr, high dose, quadrivalent, PF (FLUZONE HIGH-DOSE) Yoseph Fall MD Work Phone: [facility] [place] 02-19-2023 influenza virus vacc ine, unspecified formulation oYseph Fall MD Work Phone: [facility] [place] 07-17-2021 pneumococcal polysaccharide vaccine, 23 valent Yoseph Fall MD Work Phone: [facility] [place] 02-08-2019 influenza, injectabl e, quadrivalent, contains preservative Yoseph Fall MD Work Phone: [facility] [place] 02-08-2019 influenza virus vacc ine, unspecified formulation Yoseph Fall MD Work Phone: [facility] [place] 05-11-2018 influenza, injectabl e, quadrivalent, contains preservative Yoseph Fall MD Work Phone: [facility] [place] 09-24-2017 pneumococcal conjuga te vaccine, 13 valent Yoseph Fall MD Work Phone: [facility] [place] 02-25-2016 influenza, seasonal, injectable Yoseph Fall MD Work Phone: [facility] [place] Work Phone: 10-24-2013 tetanus toxoid, redu ani diphtheria toxoid, and acellular pertussis vaccine, adsorbed Yoseph Fall MD Work Phone: [facility] [place] 10-22-2013 tetanus toxoid, redu ani diphtheria toxoid, and acellular pertussis vaccine, adsorbed [facility] 03-13-2013 influenza virus vacc ine, unspecified formulation Yoseph Fall MD Work Phone: [facility] [place] 03-09-2013 Influenza virus vaccine [facility] 03-21-2012 pneumococcal polysaccharide vaccine, 23 valent Yoseph Fall MD Work Phone: [facility] [place] 03-21-2012 pneumococcal vaccine , unspecified formulation [facility] 03-17-2010 pneumococcal polysaccharide vaccine, 23 valent Yoseph Fall MD Work Phone: [facility] [place] Work Phone: 03-03-2010 influenza virus vacc ine, unspecified formulation Yoseph Fall MD Work Phone: [facility] [place] 02-10-2008 influenza virus vacc ine, unspecified formulation Yoseph Fall MD Work Phone: [facility] [place] 03-22-2007 influenza virus vacc ine, unspecified formulation Yoseph Fall MD Work Phone: [facility] [place] Work Phone: 04-14-2005 influenza virus vacc ine, unspecified formulation Yoseph Fall MD Work Phone: [facility] [place] Work Phone: 04-13-2005 pneumococcal polysaccharide vaccine, 23 valent Yoseph Fall MD Work Phone: [facility] [place] Work Phone: Payers Date Payer Category Payer Medicare HMO [employer] [id number] 2024 Self-pay [id number] 2024 Unknown [id number] 2017 Medicaid [id number] 2017 Medicare [id number] 2017 Medicare [id number] 2017 Medicare (Managed Care) [employer]FR[employer]ICARE [id number] 2015 Unknown [id number] Unknown [id number] [id number]. 462 Unknown [id number] 2.16.840.1.106598.3.579.2. 462 Unknown [id number] 2.16.840.1.818151.3.579.2. 462 Unknown [id number] 2.16.840.1.909679.3.579.2. 462 Unknown [id number] 2.16.840.1.994269.3.579.2. 462 Unknown [id number] 2.16.840.1.254677.3.579.2. 462 Unknown [id number] 2.16.840.1.113208.3.579.2. 462 Unknown [id number] 2.16.840.1.936638.3.579.2. 462 Unknown [id number] 2.16.840.1.980582.3.579.2. 462 Unknown [id number] 2.16.840.1.658224.3.579.2. 462 Unknown [id number] 2.16.840.1.240862.3.579.2. 462 Unknown [id number] 2.16.840.1.917937.3.579.2. 462 Unknown [id number] 2.16.840.1.331721.3.579.2. 462 Unknown [id number] 2.16.840.1.630461.3.579.2. 462 Unknown [id number] 2.16.840.1.884469.3.579.2. 462 Unknown [id number] 2.16.840.1.162308.3.579.2. 462 Unknown [id number] 2.16.840.1.281938.3.579.2. 462 Unknown [id number] 2.16.840.1.081353.3.579.2. 462 Unknown [id number] 2.16.840.1.518366.3.579.2. 462 Unknown [id number] 2.840.1.534064.3.579.2. 462 Social History Date Type Detail Facility Start: 1969 End: 04-07-2024 Tobacco smoking status NHIS Smokes tobacco daily [facility] [place] Work Phone: Start: 1969 History of tobacco use Cigarette Smo ker [facility] Work Phone: Start: 07-17-2021 End: 11-22-2024 Alcohol intake Current drinker of alcohol (finding) [facility] Start: 10-23-2014 History SDOH Alcohol Comment 12 drinks per week [facility] Start: 1955 Sex Assigned At Not on file [facility] Start: 07-07-2021 End: 10-17-2021 Exposure to SARS-CoV-2 (event) Not sure [facility] Start: 12-07-2019 End: 11-13-2022 Cigarettes smoked current (pack per day) - Reported 1 [facility] Start: 12-07-2019 End: 10-17-2024 Tobacco use and exposure Smokeless tobacco non-user [facility] Start: 08-07-2022 End: 11-13-2022 Tobacco use panel [facility] Start: 03-27-2012 Adult Depression Screening Assessment 0 [facility] Start: 07-20-2023 End: 07-20-2023 Tobacco smoking status NHIS Unknown if ever smoked [facility] Start: 07-20-2023 Sober [facility] Start: 07-20-2023 None [facility] Start: 09-23-2014 Spouse/ Signif icant Other [facility] Start: 07-20-2023 Cigarettes [facility] Start: 1955 Sex Assigned At Female [facility] Start: 09-29-2024 End: 12-26-2024 Tobacco smoking status NHIS Ex-smoker (finding) [facility] Start: 1969 History of tobacco use Current smoke r [facility] Start: 12-15-2024 Alcoholic beverage intake Ex-drinker (finding) [facility] Start: 11-22-2024 Sex Female (finding) [facility] Goals Date Patient Goal Desired Activity /State Personal health goal Functional Status Date Assessment Result Facility 10-09-2024 Functional status Ambulates [facility] Work Phone: 07-22-2023 Functional status Chair [facility] Work Phone: 06-29-2016 Are you deaf, or do you have serious difficulty hearing No 06/29/2016 3:38 PM Nancy Payne RN No [facility] 06-29-2016 Are you blind, or do you have serious difficulty seeing, even when wearing glasses No 06/29/2016 3:38 PM Nancy Payne RN No [facility] 06-29-2016 Do you have serious difficulty walking or climbing stairs Yes 06/29/2016 3:38 PM Nancy Payne RN Yes [facility] 06-29-2016 Do you have difficul ty dressing or bathing No 06/29/2016 3:38 PM Nancy Payne RN No [facility] 06-29-2016 Because of a physica l, mental, or emotional condition, do you have difficulty doing errands alone such as visiting a physician's office or shopping Yes 06/29/2016 3:38 PM Nancy Payne RN Yes [facility] Mental Status Date Assessment Result Facility 10-09-2024 Cognitive function Voice/Name [facility] Work Phone: 07-22-2023 Cognitive function Voice/Name [facility] Work Phone: 06-29-2016 Because of a physica l, mental, or emotional condition, do you have serious difficulty concentrating, remembering, or making decisions No 06/29/2016 3:38 PM Nancy Payne RN No [facility] Clinical Notes 06-30-2016 to 12-26-2024 Note Date & Type Note Facility 12-26-2024 History and physi mavis note [facility] 12-26-2024 Discharge summary [facility] 12-26-2024 Radiology Diagnostic study note [facility] Imaging Services [address] [place] [address] Chest 1 View (Portable) MR#: [id number] Acct: [id number] Name: DENIA GONZALEZ Rep #: [id number] : 1955 F 69 From: Yaa Becerra MD PCP: Dr. Yoseph Fall MD Status: ID E ER Study:Chest 1 View (Portable) Date of Exam: 12/26/24 Exam# [id number] Ordering Dr: Hema Cardona P. PROCEDURE: CHEST 1 VIEW (PORTABLE) 12/26/2024 REASON FOR EXAM: SOB TECHNIQUE: Frontal view of the chest. COMPARISON: September 29, 2024 FINDINGS: Hardware: None Heart: Heart is normal size. Aorta is atherosclerotic. Lungs: Surgical clips are seen overlying the upper mediastinum and right paratracheal region. Surgical suture line is seen overlying the right upper thorax with some local volume loss and linear scarring. No new consolidation or mass. Possibly emphysema. No pneumothorax. Bones: Degenerative changes are identified within the thoracic spine. RAD/Chest 1 View (Portable) IMPRESSION: Posttreatment changes. No acute abnormality. No significant change [id number] CC: Dr. Yoseph Fall MD; ED PHYSICIAN PROVIDER ~ Special Effects Makeup Artist: Signed [facility] 12-26-2024 Discharge summary Note Date/Time December 26, 2024 8:00pm [facility] Medical Records Department [address] [place] [address] Emergency Department Summary 12/26/24 MR#: [id number] Acct: [id number] Name: DENIA GONZALEZ Rep #:[id number] : 1955 69 From: Marcel Zarate MD PCP: Dr. Yoseph Fall MD Status:RE G ER Location: ED HPI History of Present Illness Chief Complaint: Shortness of Breath Informant: patient Narrative Narrative: 69-year-old female 3 to 4 days of productive cough with small amount of yellow sputum no blood, increased dyspnea and chest tightness that wraps around to her back, and upon coming here she states just leaving the house makes her have a panic attack which has happened every time she leaves in the past, and that is simply making the dyspnea and chest/upper back tightness worse. She does not have any pleuritic symptoms. No new leg edema. She is supposed to have a heartcath at [facility] within the next several weeks because of a leaky valve, her leg swelling is stable. She has been anticoagulated on apixaban because of A-fib. [facility] Medical History Afib Aortic valve stenosis RLS (restless legs syndrome) History of ETOH abuse Chronic hypoxic respiratory failure, on home oxygen therapy COPD (chronic obstructive pulmonary disease) Anxiety Depression Smoker Asthma Hypertension Migraines Home Medications ?Medication ?Instructions ?Recorded ?Last Taken ?Type albuterol sulfate 90 mcg/actuation 1 - 2 puff inhalati on Q4H PRN PRN 04/18/13 09/23/14 History aerosol inhaler (Ventolin HFA) Bronchodialation cyclobenzaprine 10 mg tablet 10 mg PO Q12H pain 09/23/14 History 10 MG fluticasone propionate 50 1 spray intranasal DAILY porfirio al 04/18/13 09/23/14 History mcg/actuation nasal congestion spray,suspension montelukast 10 mg tablet 10 mg PO DAILY allergies 09/23/14 History 10 MG omeprazole 20 mg capsule,delayed 20 mg PO DAILY heart burn 04/18/13 09/23/14 History release 20 MG tiotropium bromide 18 mcg capsule 1 puff inhalation DA BINU wheezing 04/18/13 09/23/14 History with inhalation device (Spiriva with HandiHaler) Oxygen, Home [Home Oxygen] 2.5 lpm PRN PRN Dyspnea 09/23/14 History sertraline 100 mg tablet 100 mg PO BID mood 10/22/13 09/23/14 History fluticasone 500 mcg-salmeterol 50 1 puff inhalation BI D shortness of 10/26/13 09/23/14 Rx mcg/dose blistr powdr for breath ##1 inhalation (Advair Diskus) Ropinirole Hcl 0.25 mg PO QHS restless legs 09/23/14 Unknown History prednisone 10 mg tablet 15 mg PO QODAY PRN FLARE UPS 04/03/15 Unknown History ipratropium 0.5 mg-albuterol 3 mg 3 ml inhalation Q4HW A.RT wheezing 05/13/16 Unknown Rx (2.5 mg base)/3 mL nebulization ##30 soln lorazepam 0.5 mg tablet 0.5 mg PO QHS anxiety #7 tab s 05/05/20 Unknown Rx nicotine (polacrilex) 2 mg gum 2 mg buccal Q2H to stop smoking 07/22/23 Unknown Rx (Nicorette) #20 ea cholecalciferol (vitamin D3) 50 50 mcg PO DAILY vitami n 10/18/23 Unknown History mcg (2,000 unit) capsule (Vitamin D3) ipratropium 0.5 mg-albuterol 3 mg 3 ml inhalation Q6H PRN shortness 10/18/23 Unknown Rx (2.5 mg base)/3 mL nebulization of breath or wheezing #180 mL soln buspirone 10 mg tablet 10 mg PO BID anxiety 5 Unknown History hydrocodone-acetaminophen 5-325mg 1 tab PO BID PRN PRN pain 10/03/24 Unknown History 5mg-325mg nicotine 14 mg/24 hr daily 14 mg transdermal DAILY #28 ea 10/09/24 Unknown Rx transdermal patch cefdinir 300 mg capsule 300 mg PO BID 6 days #12 cap s 10/10/24 Unknown Rx apixaban 5 mg tablet (Eliquis) 5 mg PO BID #60 tabs Unknown Rx carvedilol 6.25 mg tablet 6.25 mg PO BID #60 tabs 10/24 05/20 Unknown Rx dronedarone 400 mg tablet (Multaq) 400 mg PO BID #180 tabs 11/03/24 Unknown Rx verapamil 180 mg 24 hr 180 mg PO BID #180 caps 10/24 05/20 Unknown Rx capsule,extended release Allergy/AdvReac Type Severity Reaction Status Date / Time No Known Allergies Allergy Verified 12/26/24 13:56 Family History Mother Hypertension Throat cancer Father Hypertension Stomach cancer Surgical History H/O exploratory laparotomy History of lung surgery History of cholecystectomy Social History household members: significant other and none housing: apartment Smoking Status: Former smoker alcohol intake: former substance use type: does not use ROS ROS ED Constitutional Constitutional ED: Denies chills or fever(s) Eyes Eyes: Denies change in vision or diplopia ENT ENT ED: Reports nasal congestion; Denies rhinorrhea or sore throat Cardiovascular Cardiovascular: Reports as per HPI, chest pain and leg edema; Denies orthopnea, palpitations or radiating jaw, neck or arm pain Respiratory/Chest Respiratory/Chest: Reports chest tightness, cough, dyspnea and sputum; Denies orthopnea Gastrointestinal Gastrointestinal: Denies abdominal pain, diarrhea, nausea or vomiting Genitourinary Genitourinary ED: Denies dysuria or hematuria Musculoskeletal Musculoskeletal: Denies back pain or neck pain Integumentary Denies abscess or rash Neurologic Neurologic: Denies headache(s), paresthesias or weakness Psychiatric Psychiatric: Reports anxiety; Denies suicidal thoughts EXAM Physical Exam Const Vital Signs: 12/26/24 13:53 12/26/24 16:37 12/26/24 16:37 Temperature 98.7 F 98.7 F Temperature Source Oral Oral Pulse Rate 100 99 Respiratory Rate 20 H 22 H Respiratory Effort Respiratory Depth Respiratory Pattern Blood Pressure 144/66 H 135/75 H Blood Pressure Mean 92 95 Pulse Ox 97 99 Oxygen Delivery Method Nasal Cannula Room Air Nasal Cannula Oxygen Flow Rate (L/min) 3 3 12/26/24 16:37 12/26/24 17:24 12/26/24 17:28 Temperature Temperature Source Pulse Rate 102 H Respiratory Rate 23 H 20 H Respiratory Effort Normal Respiratory Depth Normal Respiratory Pattern Normal Blood Pressure Blood Pressure Mean Pulse Ox 99 Oxygen Delivery Method Nasal Cannula Room Air Oxygen Flow Rate (L/min) 3 12/26/24 18:05 12/26/24 18:14 12/26/24 19:58 Temperature 98.6 F Temperature Source Pulse Rate 87 100 109 H Respiratory Rate 18 18 19 H Respiratory Effort Respiratory Depth Respiratory Pattern Blood Pressure 129/75 H 141/81 H Blood Pressure Mean 93 101 Pulse Ox 98 99 Oxygen Delivery Method Oxygen Flow Rate (L/min) Positive well nourished and well developed General Appearance ED: well developed and NAD HEENT Reports moist mucous membranes normocephalic and atraumatic Eyes PERRL and EOMs intact bilaterally Neck full ROM, supple and no JVD Resp normal respiratory effort Resp Narrative: Diffuse expiratory wheezes and some Rales diffusely, symmetrically. Trachea midline. No respiratory distress. Able to converse in full sentences. Cardio regular rate and regular rhythm Cardio Narrative: Soft systolic ejection murmur crescendo-decrescendo LLSB GI non-tender and non-distended Auscultation: normoactive bowel sounds Palpation: soft Back/Spine no CVA tenderness General Back: other FROM Extremity normal to inspection General Extremety ED: Yes edema; Negative for pulses abnormal or tenderness General Extremity: edema bilateral lower extremity Details: moderate (To mid castanon without signs of cellulitis.); Negative for pulses abnormal Neuro oriented x3, CN's II-XII intact bilaterally and no sensory deficits noted Sensorium / Orientation: awake and alert Motor Exam: strength 5/5 throughout Psych Mood & Affect: anxious Skin no rashes or lesions noted and no wounds MDM MDM MDM Narrative Medical decision making narrative: Chest x-ray 1 view on my interpretation shows no acute pneumonia, radiology in agreement. Stable COPD changes noted. Her EKG shows no acute injury changes orsigns of acute ischemia. Her initial troponin is 25 which is just out of the normal range, renal function is normal. She was given a couple breathing treatments which really helped her symptoms and she is relatively stable and nothypoxic on her home 3 L oxygen nasal cannula. The second troponin measurement came back unchanged for a delta of 0. She was given another albuterol in the meantime. I offered admission she initially wanted to go home, but she moved from the bed to the bedside commode and she was so winded that it took her 5-10 minutes to recover. She is asking for something for anxiety, specifically alprazolam, so I am giving her a dose along with Solu-Medrol, doxycycline, another albuterol treatment, and she is now changing her mind and okay with admission. I do think this is all her COPD. Additionally patient is acutely anemic compared with her prior labs from 3 months ago. She denies melena or bright red blood per rectum. History & Record Review Additional record(s) reviewed:: Prior labs Lab Data Attestation: I reviewed the patient's lab results. Labs: Laboratory Results - last 24 hr 12/26/24 12/26/24 16:20 17:57 WBC 9.6 RBC 3.43 L Hgb 9.2 L Hct 29.0 L MCV 84.5 MCH 26.8 L MCHC 31.7 L RDW Std Deviation 43.0 RDW Coeff of Augustin 14.0 Plt Count 219 MPV 9.3 Immature Gran % (Auto) 0.800 Neut % (Auto) 83.2 H Lymph % (Auto) 11.3 L [place] % (Auto) 4.5 Eos % (Auto) 0.1 Baso % (Auto) 0.1 Absolute Neuts (auto) 8.0 H Absolute Lymphs (auto) 1.08 Nucleated RBC % 0 Sodium 137 Potassium 4.0 Chloride 88 L Carbon Dioxide 41.6 H Anion Gap 8 BUN 16 Creatinine 0.64 L Estim Creat Clear Calc 65.40 Est GFR (MDRD) Non-Af 96 BUN/Creatinine Ratio 25.1 H Glucose 112 H Calcium 8.9 Troponin T High Sens 25 H D Troponin T Hi Sens 2 Hr 25 H Radiography Diagnostic Testing: Clinical Impression(s) from Imaging Studies Chest X-Ray 12/26/24 15:28 IMPRESSION: Posttreatment changes. No acute abnormality. No significant change Reading [id number] Rhythm Strip Rhythm Strip: Sinus Rhythm Rate: 99 Ectopy: None EKG Initial EKG: Attestation: I personally reviewed and interpreted this EKG as follows: Interpretation: Sinus Rhythm and No Acute Injury Pattern Comments: Enlarged inferior P waves consistent with right atrial enlargement. Normal axis, normal intervals and otherwise unremarkable EKG. Prior EKG tracings: available for review Prior: Unchanged Management Discussion w/another healthcare provider: Hospitalist Discharge Plan Dx/Rx/DC Orders Clinical Impression: Acute respiratory insufficiency, COPD with acute exacerbation, Viral URI with cough, Chest tightness, Anxiety, Anticoagulated on apixaban, Acute anemia [facility]position [facility] What to do if you have Problems For any increased pain, shortness of breath, bleeding, nausea or vomiting, chestpain, or any unexpected problems, contact your Primary Care Provider. Call [facility] ([phone]) or report to the closest Emergency Room. Call 911 if necessary. 12/26/241999 <Electronically signed by Marcel Zarate MD> Cosigner Signature (if applicable): CC: Dr. Yoseph Fall MD ~ Signed [facility] Work Phone: 1(227) 892-573409-02-2025 Telephone encounter Note* Telephone Encounter - Ban Villafana LPN - 12/26/2024 9:56 AM EDT Images from the original note were not included. Electronic PA rec'd and completed. Prior authorization approved Payer: [employer] [phone] Note from payer: CaseId:[id number];Status:Approved;Review Type:Prior Auth;Coverage Start Date:11/22/2024;Coverage End Date:12/22/2025; Approval Details Authorized from November 22, 2024 to December 22, 2025 Electronic appeal: Not supported Prior auth initiated by: Michelle Alvarez MA View History Medication Being Authorized hydrOXYzine HCl (ATARAX) 25 mg tablet Take 1 tablet by mouth three times a day as needed (for itching). Dispense: 30 tablet Refills: 2 Start: 12/22/2024 Class: Normal Diagnoses: Itching [L29.9] This order has been released to its destination. To be filled at: [facility] [address] [place] [address] [address] [facility] - [phone] [facility]09-02-2025 Miscellaneous Notes* Telephone Encounter - Ban Villafana LPN - 12/26/2024 9:56 AM EDT Images from the original note were not included. Electronic PA rec'd and completed. Prior authorization approved Payer: [employer] [phone] Note from payer: CaseId:[id number];Status:Approved;Review Type:Prior Auth;Coverage Start Date:11/22/2024;Coverage End Date:12/22/2025; Approval Details Authorized from November 22, 2024 to December 22, 2025 Electronic appeal: Not supported Prior auth initiated by: Michelle Alvarez MA View History Medication Being Authorized hydrOXYzine HCl (ATARAX) 25 mg tablet Take 1 tablet by mouth three times a day as needed (for itching). Dispense: 30 tablet Refills: 2 Start: 12/22/2024 Class: Normal Diagnoses: Itching [L29.9] This order has been released to its destination. To be filled at: [facility] [address] [place] [address] [address] - [phone] [facility] Telephone encounter Note * Telephone Encounter - Judy Bliss RN - 12/22/2024 9:40 AM EDT Daughter in [facility] called and notified that prescription was sent to pharmacy. Voices understanding. Judy Bliss RN [facility]08-29-2025 Miscellaneous Notes* Telephone Encounter - Judy Bliss RN - 12/22/2024 9:40 AM EDT Daughter [place] [facility] [place] was sent to pharmacy. Voices understanding. Judy Bliss RN * Telephone Encounter - Yoseph Fall MD - 12/22/2024 9:22 AM EDT OK for Atarax as ordered Yoseph Fall MD * Telephone Encounter - Judy Bliss RN - 12/22/2024 8:57 AM EDT Patient's Daughter In Law Symontee calls and states that patient has been itching herself a lot. Symontee reports that she is itching herself so much that she is breaking her skin. Patient asking if provider can call in something for the itching? Please review and advise, Judy Bliss RN documented in this [facility]Reg[facility] Telephone encounter Note * Telephone Encounter - Yoseph Fall MD - 12/22/2024 9:22 AM EDT OK for Atarax as ordered Yoseph Fall MD [facility]08-29-2025 Telephone encounter Note* Telephone Encounter - Judy Bliss RN - 12/22/2024 8:57 AM EDT Patient's Daughter In Law Symontee calls and states that patient has been itching herself a lot. Symontee reports that she is itching herself so much that she is breaking her skin. Patient asking if provider can call in something for the itching? Please review and advise, Judy Bliss RN [facility]08-26-2025 Telephone encounter Note* Telephone Encounter - Naima Haines MA - 12/19/2024 3:21 PM EDT Symontee notified. Naima Haines MA [facility]08-26-2025 Miscellaneous Notes* Telephone Encounter - Naima Haines MA - 12/19/2024 3:21 PM EDT Symontee notified. Naima Haines MA * Telephone Encounter - Yoseph Fall MD - 12/19/2024 2:59 PM EDT OK to refill as ordered OK to increase Buspar to 20 mg bid as ordered to help with increased anxiety Yoseph Fall MD * Telephone Encounter - Judy Bliss RN - 12/19/2024 12:29 PM EDT Patient's daughter Symontee calls and states that patient has been having more anxiety. Symontee asking about anxiety medication being increased? Patient is also needing a refill on hydrocodone. The patient has been identified by name [...] future office visit with this provider/department: Yes 01/19/2025 Requested Prescriptions Pending Prescriptions Disp Refills HYDROcodone-acetaminophen (NORCO) 5-325 mg per tablet 60 tablet 0 Sig: Take 1 tablet by mouth two times a day as needed for pain for up to 30 days. Judy Bliss RN December 19, 2024 12:30 PM documented in this encounterReg[facility]-2025 Telephone encounter Note * Telephone Encounter - Yoseph Fall MD - 12/19/2024 2:59 PM EDT OK to refill as ordered OK to increase Buspar to 20 mg bid as ordered to help with increased anxiety Yoseph Fall MD [facility]08-26-2025 Telephone encounter Note* Telephone Encounter - Judy Bliss RN - 12/19/2024 12:29 PM EDT Patient's daughter Sinan calls and states that patient has been having more anxiety. Symontee asking about anxiety medication being increased? Patient is also needing a refill on hydrocodone. The patient has been identified by name [...] future office visit with this provider/department: Yes 01/19/2025 Requested Prescriptions Pending Prescriptions Disp Refills HYDROcodone-acetaminophen (NORCO) 5-325 mg per tablet 60 tablet 0 Sig: Take 1 tablet by mouth two times a day as needed for pain for up to 30 days. Judy Bliss RN December 19, 2024 12:30 PM [facility]08-22-2025 NotePROCEDURE: L/RHC PROCEDURE DATE: 01/05/25 PROCEDURE TIME: 10 am ARRIVE AT 8:30 am Report to the Central Lounge (first floor) at the hospital entrance at [address] [place] [address]. Nothing to eat or drink after midnight prior to your procedure unless otherwise instructed by your doctor. You may take your morning medications as directed by physician with a sip of water unless specified below. Bring a complete list of all of your medications and dosages. DO NOT TAKE Xeralto, Eliquis, and Pradaxa for 2 days. Last dose on 01/02. On 01/03 begin 81 mg aspirin daily. Aspirin 81 mg as usual on the day of procedure. Please make arrangements for a power truck driver after the procedure. You will not be able to drive for 24 to 72 hours. Possibility for overnight stay - if on CPAP, please bring machine with you. If you have any questions regarding your medications, please call your doctor's office. All patients will be called the afternoon prior to the procedure with specific instructions if there should be any changes. If you do not receive a call by 4:30 pm, please call the Prep and Recovery area at [phone]. The schedule is not finalized until the afternoon, so please avoid calling before 4:30 pm.[facility]08-22-2025 NoteDx: Procedure: L/RHC Date/Time: 01/05/25 at 10:00a Surgeon: TATYANA Location: [facility] Admission: OP Anesthesia: N/A Patient agreeable to above date/time. On PB calendar and printed card to start auth.[facility]08-22-2025 History of Present illness Narrative* Rubi Corbett MD - 12/15/2024 3:00 PM EDT Images from the original note were not included. [facility]: Cardiothoracic Surgery Multidisciplinary Heart Valve Clinic Date: 12/14/24 Patient:Denia Gonzalez 1955 69 y.o. female [id number] Subjective: HPI: Denia Gonzalez 69 y.o. referred by SADIQ Aguilar is being evaluated for aortic valve stenosis. Echocardiogram completed on 10/02/24 showed severe aortic valve stenosis with peak/mean gradients 75/50 mm Hg, SASHA 0.85 cm^2. Per note, patient with past medical history significant for COPD, chronic hypoxic respiratory failure, on home O2, HTN, smoker. Patient was admitted to [facility] 09/29/24 for respiratory failureand newly diagnosed A fib with RVR. During admission an echocardiogram was performed which demonstrated severe concentric LVH with an estimated EF of 70%, nimisha I diastolic dysfunction, severely calcified aortic valve with severe aortic valve stenosis with peak/mean gradients 75/50 mm Hg, SASHA 0.85 cm^2. Pt was started on Multaq, carvedilol and verapamil in addition to Eliquis. She has tremendous anxiety, but SOB has been relatively stable and she has remained on 3LNC for quite some time without having to escalate. [Medical History] [Medical History] Past Medical History Diagnosis Date A-fib (CMS/HCC) (HCC) Anxiety Aortic stenosis Asthma Chronic respiratory failure (HCC) COPD (chronic obstructive pulmonary disease) (HCC) Depressed History of ETOH abuse HTN (hypertension) Migraines RLS (restless legs syndrome) Blood thinner - Eliquis Transthoracic Echocardiogram 10/02/24 Left Ventricle Normal LV size. Severe concentric left ventricular hypertrophy. The LV systolic function is normal. EF is 70 %. Stage 1 diastolic dysfunction. Right Ventricle Normal right ventricle. Atria The left and right atria are normal. Mitral Valve Trivial mitral valve insufficiency. Tricuspid Valve Mild tricuspid valve insufficiency. Unable to estimate RV systolic pressure due to insufficient tricuspid regurgitant envelope. Aortic Valve Severely calcified aortic valve. Severe aortic valve stenosis. Mean peak gradient 50 mmHg. Aortic valve area 0.85 cm??. Trivial aortic valve regurgitation. Pulmonic Valve The pulmonic valve is not well visualized. Great Vessels The aortic root is not well visualized. Pericardium/Pleural No pericardial effusion. Review of Systems Constitutional: Negative for activity change, chills, diaphoresis, fatigue and fever. HENT: Negative for nosebleeds and trouble swallowing. Eyes: Negative for discharge and visual disturbance. Respiratory: Positive for cough, chest tightness (during anxiety attacks) and shortness of breath (on exertion; on continuous home oxygen 3L). Negative for apnea and wheezing. Cardiovascular: Negative for chest pain, palpitations and leg swelling. Gastrointestinal: Negative for abdominal distention, abdominal pain, blood in stool, diarrhea, nausea and vomiting. Endocrine: Negative for cold intolerance and heat intolerance. Genitourinary: Negative for hematuria. Musculoskeletal: Positive for gait problem (in wheelchair during visit; minimal activity). Negativefor myalgias. Skin: Negative for color change and rash. Neurological: Negative for dizziness, seizures, syncope, facial asymmetry, speech difficulty, weakness, light-headedness, numbness and headaches. Hematological: Does not bruise/bleed easily. Psychiatric/Behavioral: Negative for dysphoric mood. Allergies: Patient has no known allergies. Past Medical History: has a past medical history of A-fib (CMS/HCC) ([facility]), Anxiety, Aortic stenosis, Asthma, Chronic respiratory failure ([facility]), COPD (chronic obstructive pulmonary disease) ([facility]), Depressed, History of ETOH abuse, HTN (hypertension), Migraines, and RLS (restless legs syndrome). Past Surgical History: has a past surgical history that includes Exploratory laparotomy; Lung surgery; and Cholecystectomy. Social History: reports that she has quit smoking. Her smoking use included cigarettes. She does not have any smokeless tobacco history on file. She reports that she does not currently use alcohol. She reports that she does not use drugs. Family History: family history includes Hypertension in her father and mother; Stomach cancer in her father; Throatcancer in her mother. Medications: Prior to Admission medications Medication Sig Start Date End Date Taking? Authorizing Provider albuterol 108 (90 Base) MCG/ACT inhaler Inhale 2 puffs every 4 hours. 09/22/24 Historical Provider, busPIRone (Buspar) 10 MG tablet Take 10 mg by mouth 2 times daily. 11/06/24 Historical Provider, carvedilol (Coreg) 6.25 MG tablet Take 6.25 mg by mouth 2 times daily (with meals). 11/06/24 Historical Provider, cholecalciferol (Vitamin D-3) 50 MCG (2000 UT) capsule Take by mouth daily. 09/22/24 Historical Provider, cyclobenzaprine (Flexeril) 10 MG tablet Take 1 tablet by mouth two times a day as needed for musclespasm. 09/22/24 Historical Provider, Eliquis 5 MG tablet take 5 mg orally twice a day for 1 month; Discontinue if platelet count drops less than 50,000 or hemoglobin less than 8 g% 11/04/24 Historical Provider, fluticasone (Flonase) 50 MCG/ACT nasal spray use 2 sprays in each nostril daily. Rinse mouth after use 08/21/24 Historical Provider, Fluticasone-Salmeterol 500-50 MCG/ACT aerosol powder Inhale 1 Puff as instructed two times a day. Rinse and gargle mouth with water after use. 09/22/24 Historical Provider, furosemide (Lasix) 20 MG tablet Take 20 mg by mouth daily. 11/17/24 Historical Provider, Multaq 400 MG tablet Take 400 mg by mouth 2 times daily. 11/09/24 Historical Provider, omeprazole (PriLOSEC) [address] capsule TAKE 1 CAPSULE BY MOUTH DAILY ON AN EMPTY STOMACH 09/22/24 Historical ProviderMD predniSONE (Deltasone) 10 MG tablet Take 1.5 pills every day or every other day as needed 11/13/24 Historical ProviderMD rOPINIRole (Requip) 0.25 MG tablet Take 0.25 mg by mouth Nightly. 09/22/24 Historical ProviderMD sertraline (Zoloft) 100 MG tablet Take 200 mg by mouth daily. 09/22/24 Historical ProviderMD tiotropium (Spiriva) [address] 1 capsule into inhaler and inhale. As instructed 09/15/24 Historical Provider, verapamil SR (Calan SR) 240 MG ER tablet Take 240 mg by mouth Nightly. 09/22/24 Historical Provider, Objective: There were no vitals taken for this visit. @[id number]@ Physical Exam Constitutional: Appearance: Normal appearance. HENT: Head: Normocephalic and atraumatic. Mouth/Throat: Mouth: Mucous membranes are moist. Pharynx: Oropharynx is clear. Eyes: Extraocular Movements: Extraocular movements intact. Conjunctiva/sclera: Conjunctivae normal. Pupils: Pupils are equal, round, and reactive to light. Cardiovascular: Rate and Rhythm: Normal rate and regular rhythm. Heart sounds: Murmur heard. Comments: Systolic murmur with absent S2 Pulmonary: Effort: Pulmonary effort is normal. Breath sounds: Normal breath sounds. Comments: On 3LNC, nonproductive cough Abdominal: General: Abdomen is flat. Palpations: Abdomen is soft. Musculoskeletal: General: Normal range of motion. Cervical back: Normal range of motion and neck supple. Right lower leg: No edema. Left lower leg: No edema. Skin: General: Skin is warm and dry. Neurological: General: No focal deficit present. Mental Status: She is alert and oriented to person, place, and time. Psychiatric: Mood and Affect: Mood normal. Behavior: Behavior normal. Labs: Reviewed in EMR No results found for: WBC, HGB, HCT, MCV, PLT No results found for: NA, K, CL, CO2, BUN, CREATININE, GLUCOSE, CALCIUM Diagnostics: Reviewed in EMR Assessment/Plan: 69F with COPD and chronic hypoxic respiratory failure, on home O2, with severe aortic stenosis on recent TTE. TTE reviewed, agree that AVR is indicated. Recommend TAVR over SAVR if feasible given here high risk of surgical complications if SAVR is undertaken. Will order LHC and TAVR scans, may need dental eval prior to TAVR given poor lower dentition. Patient consents to surgical bailout: [] Yes [] No If No why: Disclaimers: INFORMED CONSENT: The nature and purpose of the proposed treatment and/or procedure have been discussed. The risks and benefits of the proposed treatment or procedures have been reviewed. Alternatives have been reviewed in addition to the risks and benefits of not receiving treatments or undergoingprocedures. Pursuant to this discussion, the patient agrees to undergo the proposed treatment or procedure. Captured images seen in this note are not a substitute for a comprehensive interpretation of the entire data set as reflected by the interpreting physician with regard to radiology, echocardiography,and other diagnostic images. documented in this [facility]08-22-2025 History of Present illness Narrative* Zraia Shea MD - 12/15/2024 2:30 PM EDT Images from the original note were not included. [facility] [address] [facility] [id number] Dept: [phone] Dept Visit type: New : 1955 Reason for Visit: New patient, Heart Valve Clinic Assessment and Plan 1. 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 Nonrheumatic aortic valve stenosis This is a very pleasant 69 y.o. female with severe and symptomatic aortic stenosis. she is in need of aortic valve replacement. Will get a cath to evaluate coronary anatomy, and Will get a CTA for anatomic planning. If favorable anatomy for transfemoral TAVR, will likely proceed with TAVR. She would be a high risk surgical candidate with her degree of COPD. This decision was made after multidisciplinary discussion, using a shared decision making strategy. CT surgery also saw patient to aide in discussion. It was a pleasure seeing your patient in the office today. Please do not hesitate to call me with any questions. Follow up for Recheck after cath and CTA. Subjective HPI Denia Gonzalez is a very pleasant 69 y.o. female who is here for evaluation of her aortic valve disease. her symptoms include progressive dyspnea on exertion and fatigue. She also has severe and O2 dependent COPD. She also has significant anxiety and rarely leaves her house. her most recent echo shows severe aortic stenosis with mean gradient 50mmHg. Review of Systems Constitutional: Negative for activity change, chills, diaphoresis, fatigue and fever. HENT: Negative for nosebleeds and trouble swallowing. Eyes: Negative for discharge and visual disturbance. Respiratory: Positive for cough, chest tightness (during anxiety attacks) and shortness of breath (on continuous home oxygen 3L). Negative for apnea and wheezing. Cardiovascular: Negative for chest pain, palpitations and leg swelling. Gastrointestinal: Negative for abdominal distention, abdominal pain, blood in stool, diarrhea, nausea and vomiting. Endocrine: Negative for cold intolerance and heat intolerance. Genitourinary: Negative for hematuria. Musculoskeletal: Positive for gait problem (in wheelchair during visit; minimal activity). Negativefor myalgias. Skin: Negative for color change and rash. Neurological: Negative for dizziness, seizures, syncope, facial asymmetry, speech difficulty, weakness, light-headedness, numbness and headaches. Hematological: Does not bruise/bleed easily. Psychiatric/Behavioral: Negative for dysphoric mood. Allergies[1] Current Medications[2] Medical History[3] Social History Tobacco Use Smoking status: Former Types: Cigarettes Smokeless tobacco: Not on file Substance Use Topics Alcohol use: Not Currently Surgical History[4] Family History[5] Objective Vitals: 12/15/24 1436 12/15/24 1504 BP: (S) (!) 164/90 130/80 BP Location: Left arm Left arm Patient Position: Sitting Sitting BP Cuff Size: Adult Adult Pulse: 99 SpO2: 93% Weight: 155 lb (70.3 kg) Height: 5' 4 (1.626 m) Physical Exam Constitutional: General: She is not in acute distress. Appearance: She is not diaphoretic. HENT: Head: Normocephalic. Nose: Nose normal. Mouth/Throat: Mouth: Mucous membranes are moist. Pharynx: No oropharyngeal exudate. Eyes: General: No scleral icterus. Right eye: No discharge. Left eye: No discharge. Neck: Thyroid: No thyromegaly. Vascular: No carotid bruit or JVD. Cardiovascular: Rate and Rhythm: Normal rate and regular rhythm. Pulses: Normal pulses. Heart sounds: Murmur heard. Systolic murmur is present with a grade of 3/6. Pulmonary: Effort: Pulmonary effort is normal. Breath sounds: Normal breath sounds. Abdominal: General: Bowel sounds are normal. There is no distension. Palpations: There is no hepatomegaly. Tenderness: There is no abdominal tenderness. Musculoskeletal: General: Normal range of motion. Cervical back: Normal range of motion. Right lower leg: No edema. Left lower leg: No edema. Skin: General: Skin is warm and dry. Neurological: Mental Status: She is oriented to person, place, and time. Psychiatric: Mood and Affect: Mood normal. Behavior: Behavior normal. Data Reviewed and Summarized No results found for: EFBP, PLVEF, LVEFPHYS, LVEF2D, EF Review of tests/labs done/ordered within my specialty: EKG in office: Review of tests/labs done/ordered outside my specialty: Independent interpretation of tests: I personally reviewed the images from Denia Gonzalez's most recent TTE in the office today, to help with medical decision making. My interpretation is noted in the HPI section of this note. Zaria Shea MD NYHA Class (1-4): III STS score: 4.8% 5 meter gait speed in seconds: unable to walk, in wheelchair Ao valve disease etiology (degenerative, rheumatic, endocarditis, other): degenerative [1] No Known Allergies [2] Current Outpatient Medications: albuterol 108 (90 Base) MCG/ACT inhaler, Inhale 2 puffs every 4 hours., Disp: , Rfl: busPIRone (Buspar) 10 MG tablet, Take 10 mg by mouth 2 times daily., Disp: , Rfl: carvedilol (Coreg) 6.25 MG tablet, Take 6.25 mg by mouth 2 times daily (with meals)., Disp: , Rfl: cholecalciferol (Vitamin D-3) 50 MCG (2000 UT) capsule, Take by mouth daily., Disp: , Rfl: cyclobenzaprine (Flexeril) 10 MG tablet, Take 1 tablet by mouth two times a day as needed for muscle spasm., Disp: , Rfl: Eliquis 5 MG tablet, take 5 mg orally twice a day for 1 month; Discontinue if platelet count drops less than 50,000 or hemoglobin less than 8 g%, Disp: , Rfl: fluticasone (Flonase) 50 MCG/ACT nasal spray, use 2 sprays in each nostril daily. Rinse mouth afteruse, Disp: , Rfl: Fluticasone-Salmeterol 500-50 MCG/ACT aerosol powder , Inhale 1 Puff as instructed two times a day.Rinse and gargle mouth with water after use., Disp: , Rfl: furosemide (Lasix) 20 MG tablet, Take 20 mg by mouth daily., Disp: , Rfl: HYDROcodone-acetaminophen ([place]) 5-325 MG tablet, Take 1 tablet by mouth every 6 hours as needed.,Disp: , Rfl: montelukast (Singulair) 10 MG tablet, Take 10 mg by mouth daily., Disp: , Rfl: Multaq 400 MG tablet, Take 400 mg by mouth 2 times daily., Disp: , Rfl: omeprazole (PriLOSEC) [address] capsule, TAKE 1 CAPSULE BY MOUTH DAILY ON AN EMPTY STOMACH, Disp: , Rfl: predniSONE (Deltasone) 10 MG tablet, Take 1.5 pills every day or every other day as needed, Disp: ,Rfl: rOPINIRole (Requip) 0.25 MG tablet, Take 0.25 mg by mouth Nightly., Disp: , Rfl: sertraline (Zoloft) 100 MG tablet, Take 200 mg by mouth daily., Disp: , Rfl: tiotropium (Spiriva) 18 MCG inhalation capsule, Place 1 capsule into inhaler and inhale. As instructed, Disp: , Rfl: verapamil SR (Calan SR) 240 MG ER tablet, Take 240 mg by mouth Nightly., Disp: , Rfl: [3] Past Medical History: Diagnosis Date A-fib (CMS/HCC) (HCC) Anxiety Aortic stenosis Asthma Chronic respiratory failure (HCC) COPD (chronic obstructive pulmonary disease) (HCC) Depressed History of ETOH abuse HTN (hypertension) Migraines RLS (restless legs syndrome) [4] Past Surgical History: Procedure Laterality Date CHOLECYSTECTOMY EXPLORATORY LAPAROTOMY LUNG SURGERY [5] Family History Problem Relation Name Age of Onset Hypertension Mother Throat cancer Mother Hypertension Father Stomach cancer Father documented in this [facility]08-15-2025 Telephone encounter Note* Telephone Encounter - Ban Villafana LPN - 12/08/2024 10:37 AM EDT Images from the original note were not included. prior authorization approved Payer: [employer] [phone] Note from payer: CaseId:[id number];Status:Approved;Review Type:Prior Auth;Coverage Start Date:11/08/2024;Coverage End Date:12/08/2025; Approval Details Authorized from November 08, 2024 to December 08, 2025 Electronic appeal: Not supported Prior auth initiated by: Ban Villafana LPN View History Medication Being Authorized cyclobenzaprine (FLEXERIL) 10 mg tablet Take 1 tablet by mouth two times a day as needed for muscle spasm. 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 To be filled at: [id number] [place] [address] - [address] [facility] - [phone] Pharmacy notified. [facility]08-15-2025 Miscellaneous Notes* Telephone Encounter - Ban Villafana LPN - 12/08/2024 10:37 AM EDT Images from the original note were not included. prior authorization approved Payer: [email or web address] [phone] Note from payer: CaseId:[id number];Status:Approved;Review Type:Prior Auth;Coverage Start Date:11/08/2024;Coverage End Date:12/08/2025; Approval Details Authorized from November 08, 2024 to December 08, 2025 Electronic appeal: Not supported Prior auth initiated by: Ban Villafana LPN View History Medication Being Authorized cyclobenzaprine (FLEXERIL) 10 mg tablet Take 1 tablet by mouth two times a day as needed for muscle spasm. 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 To be filled at: [id number] [place] [address] [address] [facility] - [phone] Pharmacy notified. * Telephone Encounter - Ban Villafana LPN - 12/08/2024 10:31 AM EDT Electronic PA rec'd and completed for cyclobenzaprine (FLEXERIL) 10 mg tablet documented [facility] Telephone encounter Note * Telephone Encounter - Ban Villafana LPN - 12/08/2024 10:31 AM EDT Electronic PA rec'd and completed for cyclobenzaprine (FLEXERIL) 10 mg tablet [facility]08-15-2025 Telephone encounter Note* Telephone Encounter - Nelson Robert APRN.CNP - 12/08/2024 9:26 AM EDT The following approved medication requests have been transmitted electronically. Requested Prescriptions Pending Prescriptions Disp Refills cyclobenzaprine (FLEXERIL) 10 mg tablet 60 tablet 5 Sig: Take 1 tablet by mouth two times a day as needed for muscle spasm. Nelson Robert APRN.CNP [facility]08-15-2025 Miscellaneous Notes* Telephone Encounter - Nelson Robert APRN.CNP - 12/08/2024 9:26 AM EDT The following approved medication requests have been transmitted electronically. Requested Prescriptions Pending Prescriptions Disp Refills cyclobenzaprine (FLEXERIL) 10 mg tablet 60 tablet 5 Sig: Take 1 tablet by mouth two times a day as needed for muscle spasm. Nelson Robert APRN.CNP * Telephone Encounter - Martínez Louie RN - 12/08/2024 9:18 AM EDT The patient has been identified by name [...] future office visit with this provider/department: Yes 01/19/2025 Requested Prescriptions Pending Prescriptions Disp Refills cyclobenzaprine (FLEXERIL) 10 mg tablet 60 tablet 5 Sig: Take 1 tablet by mouth two times a day as needed for muscle spasm. Martínez Louie RN December 08, 2024 9:19 AM documented in this encounterReg[facility] Telephone encounter Note * Telephone Encounter - Martínez Louie RN - 12/08/2024 9:18 AM EDT The patient has been identified by name [...] future office visit with this provider/department: Yes 01/19/2025 Requested Prescriptions Pending Prescriptions Disp Refills cyclobenzaprine (FLEXERIL) 10 mg tablet 60 tablet 5 Sig: Take 1 tablet by mouth two times a day as needed for muscle spasm. Martínez Louie RN December 08, 2024 9:19 AM [facility]08-05-2025 Telephone encounter Note* Telephone Encounter - Heena Howell - 11/28/2024 4:15 PM EDT Chart made and GRADES 1 THROUGH 5 TEACHER packet [id number] Miscellaneous Notes* Telephone Encounter - Heena Howell - 11/28/2024 4:15 PM EDT Chart made and GRADES 1 THROUGH 5 TEACHER packet mailed * Telephone Encounter - Heena Howell - 11/23/2024 1:52 PM EDT Records scanned under Media and paper referral on my desk to make chart * Telephone Encounter - Heena Howell - 11/22/2024 1:08 PM EDT VC appt made I need to make chart and mail GRADES 1 THROUGH 5 TEACHER packet. Working on getting records scanned in. documented in this [facility]08-04-2025 Telephone encounter Note* Telephone Encounter - Yoseph Fall MD - 11/27/2024 3:12 PM EDT Noted and agree Yoseph Fall MD [facility]08-04-2025 Miscellaneous Notes* Telephone Encounter - Yoseph Fall MD - 11/27/2024 3:12 PM EDT Noted and agree Yoseph Fall MD * Telephone Encounter - Padmini Abbott RN - 11/27/2024 2:12 PM EDT Rafa with [facility] Nursing calling and states he plans to add 1 more visit to pt's plan of care, to discharge patient. No call back needed if provider agreeable with this. Padmini Abbott RN documented in [facility]Reg[facility] Telephone encounter Note * Telephone Encounter - Padmini Abbott RN - 11/27/2024 2:12 PM EDT Rafa with [facility] Nursing calling and states he plans to add 1 more visit to pt's plan of care, to discharge patient. No call back needed if provider agreeable with this. Padmini Abbott RN [facility]08-01-2025 Telephone encounter Note* Telephone Encounter - Richard Broussard RN - 11/24/2024 3:30 PM EDT Palliative Medicine at Home Care Coordination New Patient Note My chart note sent. Nurse introduced self and role of Manager Fashion in Palliative Medicine. Reviewed contact sheet information and on-call process. Nurse educated patient on medication refill process. Nurse encouraged patient to call with any questions/concerns/symptom related issues. KAMALJIT Shrestha Jointer Machine Operator [facility]08-01-2025 Miscellaneous Notes* Telephone Encounter - Richard Broussard RN - 11/24/2024 3:30 PM EDT Palliative Medicine at Home Care Coordination New Patient Note My chart note sent. Nurse introduced self and role of Manager Fashion in Palliative Medicine. Reviewed contact sheet information and on-call process. Nurse educated patient on medication refill process. Nurse encouraged patient to call with any questions/concerns/symptom related issues. KAMALJIT Shrestha Jointer Machine Operator documented in this encounterReg[facility]-20[facility] Telephone encounter Note * Telephone Encounter - Connor Shaw LISW - 11/24/2024 11:11 AM EDT November 24, 2024 Opened by mistake, please disregard. ALTA [facility] Social Work [phone] [facility] Work Phone: 1(976) 176-352808-01-2025 Miscellaneous Notes* Telephone Encounter - Connor Shaw LISW - 11/24/2024 11:11 AM EDT November 24, 2024 Opened by mistake, please disregard. ALTA [facility] Social Work [phone] documented in this [facility]Reg[facility] Telephone encounter Note * Telephone Encounter - Yoseph Fall MD - 11/24/2024 10:30 AM EDT OK for doxycycline as ordered Yoseph Fall MD [facility]08-01-2025 Miscellaneous Notes* Telephone Encounter - Yoseph Fall MD - 11/24/2024 10:30 AM EDT OK for doxycycline as ordered Yoseph Fall MD * Telephone Encounter - Naima Haines MA - 11/23/2024 2:50 PM EDT Pt states she still feels like she needs an antibiotic, unable to take Levaquin due to medication interaction. [facility] [place]. Naima Haines MA * Telephone Encounter - Yoseph Fall MD - 11/23/2024 2:33 PM EDT Does she feel that she still needs an antibiotic? Yoseph Fall MD * Telephone Encounter - Sukhi Marrero RN - 11/20/2024 3:14 PM EDT Rafa RN with [facility] calls to let provider know that he is going to see patient one time next week prior to discharge from their services. Rafa reports his goals have been met for nursing but patient continues to report yellow/green/brownsputum. Rafa reports bilateral lung sounds are diminished but other than that no fever or other symptoms. Patient is requesting the prescription for cefdinir as she was not able to take the Levaquin ordered by the hospital because of being on the Multaq. Per previous notes, notified Rafa that patient would need to be seen in office. Rafa reports that patient thinks Dr. Fall is back so requesting again. Notified Dr. Fall is out until 11/23/2024 and on-call will not prescribe with out seeing patient. Requested message be sent to Dr. Fall for when returns or if GRADES 1 THROUGH 5 TEACHER would review. Sukhi Marrero RN documented in this [facility]Reg[facility]-20[facility] Telephone encounter Note * Telephone Encounter - Naima Haines MA - 11/23/2024 2:50 PM EDT Pt states she still feels like she needs an antibiotic, unable to take Levaquin due to medication interaction. [facility] [place]. Naima Haines MA [facility]07-31-2025 Telephone encounter Note* Telephone Encounter - Yoseph Fall MD - 11/23/2024 2:33 PM EDT Does she feel that she still needs an antibiotic? Yoseph Fall MD [facility]07-31-2025 Telephone encounter Note* Telephone Encounter - Yoseph Fall MD - 11/23/2024 2:23 PM EDT OK to refill as ordered Yoseph Fall MD [facility]07-31-2025 Miscellaneous Notes* Telephone Encounter - Yoseph Fall MD - 11/23/2024 2:23 PM EDT OK to refill as ordered Yoseph Fall MD * Telephone Encounter - Martínez Louie RN - 11/23/2024 12:58 PM EDT The patient has been identified by name [...] future office visit with this provider/department: Yes 01/19/2025 Requested Prescriptions Pending Prescriptions Disp Refills HYDROcodone-acetaminophen (NORCO) 5-325 mg per tablet 60 tablet 0 Sig: Take 1 tablet by mouth two times a day as needed for pain for up to 30 days. Martínez Louie RN November 23, 2024 1:00 PM documented in this encounterReg[facility]-2025 NoteRecords scanned under Media and paper referral on my desk to make [facility] 11-23-2024 Telephone encounter Note* Telephone Encounter - Heena Howell - 11/23/2024 1:52 PM EDT Records scanned under Media and paper referral on my desk to make chart [id number] Telephone encounter Note* Telephone Encounter - Martínez Louie, KAREN - 11/23/2024 12:58 PM EDT The patient has been identified by name [...] future office visit with this provider/department: Yes 01/19/2025 Requested Prescriptions Pending Prescriptions Disp Refills HYDROcodone-acetaminophen (NORCO) 5-325 mg per tablet 60 tablet 0 Sig: Take 1 tablet by mouth two times a day as needed for pain for up to 30 days. Martínez Louie RN November 23, 2024 1:00 PM [facility]07-31-2025 Instructions* Patient Instructions* Gregor Fernandez APRN.GRAPHIC DESIGN SPECIALIST - 11/23/2024 9:58 AM EDT Denia, It was a pleasure meeting with you today. We discussed your chronic conditions and care plan: - Chronic Pain: - Your pain management will need to be addressed by a pain specialist. Palliative care cannot prescribe pain medications for chronic pain unless it is cancer-related or you are in an advanced stage of illness. - Continue taking Tylenol as directed (500 mg tabs two tabs three times daily) Avoid Advil or otherNSAIDs due to your blood thinner (Eliquis). - If your pain worsens or becomes unmanageable, please contact your primary care provider or a painmanagement specialist. - Heart Condition: - You are scheduled to meet with two specialists on December 15 to determine the best approach for your upcoming heart procedure. This may involve a less invasive method, such as accessing your heartthrough an artery in your leg or arm. - Continue taking your heart medications as prescribed, including Eliquis (twice daily), carvedilol, and verapamil (180 mg twice daily). - If you experience worsening chest tightness, shortness of breath, or swelling, please contact your car restorer or go to the emergency room. - COPD and Breathing Support: - Continue using your nebulizer every 6 hours as directed. - Continue taking Spiriva and Singulair as prescribed. - You are doing well with nicotine patches and have stopped smoking. Please continue using the patches as needed. - A social problems specialist will reach out to explore options for a portable oxygen system (e.g., Inogen) that may better meet your needs when leaving the house. - Medications: - Continue taking your current medications as prescribed, including: - Zoloft (2 tablets daily). - Omeprazole (daily for heartburn). - Prednisone (every other day, as tolerated). - Ropinirole (at night). - If you have any questions about your medications or experience side effects, please contact your primary care provider. - Bowel Health: - You are not currently on a bowel regimen. If you experience constipation, you may use Dulcolax asneeded. - Palliative Care Follow-Up: - We will follow up with you in approximately 2 months to reassess your condition and provide additional support as needed. - If your health declines or you experience significant changes, we can transition to comfort-focused care and assist with managing symptoms at home. Please continue to monitor your symptoms and reach out to your primary care provider, car restorer,or palliative care team with any concerns. Good luck with your upcoming appointments and tests. Thank You, Gregor Fernandez CNP documented in this encounterReg[facility]-2025 History of Present illness Narrative* Gregor Fernandez APRN.GRAPHIC DESIGN SPECIALIST - 11/23/2024 7:00 AM EDT PALLIATIVE MEDICINE AT HOME INITIAL CONSULT SERVICE DATE: 11/23/2024 Referring Physician: Yoseph Fall [id number] [facility] [address] Primary Physician: Yoseph Fall MD IDENTIFICATION AND INTRODUCTION: Denia Gonzalez is a 69 year old female This visit took place Virtually; I have communicated my name and active licensure. The patient's identity and physical location were verified at the time of this visit. The patient or their legal medical device sales representative has been informed of the risks and benefits of -- and alternatives to -- treatment through a remote evaluation and consents to proceed with the evaluation remotely. The patient is being seen with daughter in law Recording using ambient [employer]mi[employer] software for draft documentation of the visit was discussed with the patient/authorized medical device sales representative; all questions welcomed and answered. Patient/authorized medical device sales representative agreed to proceed REASON FOR CONSULT: Introduction to services, assessment/recommendation, goals of care, support PERTINENT MEDICAL HISTORY: Denia Gonzalez is a 69-year-old female with PM Hx of COPD on 2-3 L nasal cannula 16/11. She has a history of non-small cell lung cancer, s/p right lobectomy 04/22/2004. RLS (restless legs syndrome), History of ETOH abuse,Chronic hypoxic respiratory failure, on home oxygen therapy, Anxiety, Depression, Smoker,Asthma, Hypertension, Migraines. She is referred to palliative care forCOPD stage III, and low back pain chronic. Pt states she does not see a putty tinter maker, she is not seeing pain management Subjective Denia Gonzalez is a 69-year-old female with a history of COPD, lung cancer, and chronic pain, presenting for palliative care consultation. Denia reports chronic pain that is constant and affects multiple areas, including her head and legs. The pain is exacerbated by walking short distances and is associated with chest tightness. She rates her pain as 7/10 before taking medication and 5/10 after medication, noting that the pain never fully resolves. She has been on hydrocodone since 2003, previously taking 4 tablets per day, but her current prescription is limited to 2 tablets per day. She also takes Tylenol, 2 tablets per day, butis restricted from taking more due to potential interactions with her other medications. She deniesnausea, emesis, constipation, or diarrhea, and uses Dulcolax PRN for rare instances of constipation. Denia has a history of lung cancer with a partial lobectomy and is currently in remission. She is scheduled for a lung cancer screening but has not yet seen a putty tinter maker. She uses 3 liters of oxygen and a nebulizer every 6 hours since her last hospitalization. She reports dyspnea with walking but not while sitting, and experiences fatigue, requiring daily naps. She is also on Spiriva, Singulair, and prednisone every other day for COPD management. She has successfully quit smoking and is using nicotine patches. Denia has a history of atrial fibrillation and was hospitalized in September for 11- 12 days. 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 She is currently on Eliquis BID, carvedilol, and verapamil BID for blood pressure clifford gali. She also takes a diuretic for lower extremity edema, which has improved in one foot but persists in the other. She denies taking losartan. Denia has not left her house since before , except for medical emergencies and appointments. She uses portable oxygen when leaving the house but reports anxiety about running out of oxygen. She relies on her boyfriend and grandson for support and uses a wheelchair for longer distances. She receives home care from [facility] and the [facility] heart team. She manages herown medications but is expecting assistance with medication organization soon. She also takes omeprazole daily, ropinirole at night, and Zoloft BID. SOCIAL HISTORY: Social History Tobacco Use Smoking status: Former Current packs/day: 1.00 Average packs/day: 1 pack/day for 55.6 years (55.6 ttl pk-yrs) Types: Cigarettes Start date: 1969 Smokeless tobacco: Never Vaping Use Vaping status: Never Used Substance Use Topics Alcohol use: Yes Comment: Nothing since 03/2012. Drug use: No PAST MEDICAL HISTORY: PAST MEDICAL HISTORY Diagnosis Date Closed fracture of unspecified part of humerus Arm fracture Dysthymic disorder Depression (non-psychotic) Essential hypertension, benign 04/26/2006 Generalized anxiety disorder Anxiety, Generalized Generalized osteoarthrosis, involving multiple sites Osteoarthritis - renee. hands, knees Malignant neoplasm of bronchus and lung, unspecified site (HCC) 04/26/2003 Lung cancer [place] (myocardial infarction) (HCC) 10-10 taken to [facility] heart stopped Obstructive chronic bronchitis with [...] PAST MEDICAL HISTORY OF FX right foot PAST SURGICAL HISTORY: PAST SURGICAL HISTORY Procedure Laterality Date CONIZATION [...] 1 LOBE LOBECT 04/22/2004 right upper lobectomy CURRENT MEDICATIONS: predniSONE (DELTASONE) 10 mg tablet Take 1.5 pills every day or every other day as needed furosemide (LASIX) 20 mg tablet Take 1 tablet by mouth once daily. verapamil ER 180 mg 24 hr capsule Take 1 capsule by mouth two times a day. apixaban (ELIQUIS) 5 mg tab(s) Take 5 mg by mouth two times a day. carvedilol (COREG) 6.25 mg tablet Take 6.25 mg by mouth two times a day with meals. ipratropium-albuterol (DUONEB) 0.5 mg-3 mg(2.5 mg base)/3 mL nebu inhale 1 ampule via nebulizer every 4 hours if needed for wheezing. Use over 5 to 15 minutes sertraline (ZOLOFT) 100 mg tablet Take 2 tablets by mouth once daily. omeprazole (PRILOSEC) 20 mg capsule Take 1 capsule by mouth once daily. ON AN EMPTY STOMACH montelukast (SINGULAIR) 10 mg tablet Take 1 tablet by mouth once daily. tiotropium (SPIRIVA) 18 mcg inhalation capsule Inhale 1 capsule as instructed once daily. rOPINIRole (REQUIP) 0.25 mg tablet Take 1 tablet by mouth daily at bedtime. nicotine (NICODERM) 14 mg/24 hr apply one patch transdermally as directed every 24 hours HYDROcodone-acetaminophen (NORCO) 5-325 mg per tablet Take 1 tablet by mouth two times a day as needed for pain for up to 30 days. dronedarone (MULTAQ) 400 mg tab Take 400 mg by mouth two times a day with meals. levoFLOXacin (LEVAQUIN) 500 mg tablet Take 500 mg by mouth once daily. busPIRone (BUSPAR) 10 mg tablet Take 1 tablet by mouth two times a day. nystatin (MYCOSTATIN) 100,000 unit/mL suspension Take 5 mL by mouth four times daily. 1tsp swish inmouth for several minutes, then swallow (or expectorate) 4 times daily until gone. Cholecalciferol, Vitamin D3, 50 mcg (2,000 unit) cap Take 1 capsule by mouth once daily. cyclobenzaprine (FLEXERIL) 10 mg tablet Take 1 tablet by mouth two times a day as needed for musclespasm. albuterol HFA (VENTOLIN HFA) 90 mcg/actuation inhaler Inhale 2 Puffs as instructed every 4 hours asneeded. fluticasone-salmeterol (ADVAIR DISKUS) 500-50 mcg/dose dsdv Inhale 1 Puff as instructed two times aday. Rinse and gargle mouth with water after use. fluticasone (FLONASE) 50 mcg/actuation nasal spray use 2 sprays in each nostril daily. Rinse mouth after use Nicotine Polacrilex [address] 1 Lozenge between cheek and gum as needed. Nebulizer and Compressor For Neb Use as directed. Dx: COPD J44.9 Nebulizer Accessories [facility] Mask and supplies as needed PULSE OXIMETER [facility] Use as directed to check oxygen saturation level ammonium lactate (AMLACTIN) 12 % lotion Apply 1 application to affected area as needed for Dry Skin. losartan (COZAAR) 50 mg tablet Take 0.5 tablets by mouth once daily. (Patient not taking: Reported on 11/23/2024) OXYGEN, HOME THERAPY, 2.5 L/min by Nasal Cannula route continuous. Use as directred Disposable Gloves (DISPOSABLE LATEX-FREE GLOVES) [facility] 1 Box once every month. ICD 10: M15.9, J44.9,M54.40 Incontinence Pad, Liner, Disp (POISE PADS) pads Use pads as directed. Dx: N39.46 COMPOUNDED PRESCRIPTION BLOOD PRESSURE CUFF FOR HOME USE. DX: HYPERTENSION I10. AUTOMATIC CUFF. COMPOUNDED PRESCRIPTION Blood pressure monitor for home use. Dx: I10 OXYGEN-AIR DELIVERY SYSTEMS DEVICE as necessary ALLERGIES: ALLERGIES No Known Allergies FAMILY HISTORY: FAMILY HISTORY Problem Relation Age of Onset Cancer Mother : Throat, UTERINE Hypertension Mother Cancer Father Stomach CA Heart Father AAA Hypertension Father Heart Paternal Grandmother Breast Cancer Paternal Grandmother Heart Paternal Grandfather REVIEW OF SYSTEMS: Modified ESAS ([place] Symptom Assessment Scale): Information Provided By: Patient Pain: Moderate Nausea: None Loss of Appetite: None Constipation: None Shortness of Breath: Moderate Drowsiness: None Tiredness: Moderate Depression: Not asked Anxiety: Not asked How you feel overall: Fair Objective PHYSICAL EXAMINATION: General: Patient appears fatigued. CV: Edema present in one foot. Resp: Patient on 3 liters of oxygen, uses nebulizer every 6 hours, uses Spiriva and Singulair, usesnicotine patches, no acute distress noted. DATA: Labs Tests Imaging - Echocardiogram: Ejection fraction noted to be good; valvular regurgitation present. Creatinine Date Value Ref Range Status 02/19/2023 0.64 0.58 - 0.96 mg/dL Final CrCl cannot be calculated (Patient's most recent lab result is older than the maximum 180 days allowed.). Opioid Management: No Assessment & Plan 1. Palliative care by specialist (Z51.5) Reviewed the role and structure of Palliative Medicine for patients with advanced life-limiting illnesses as a means of providing optimal symptom management as well as assisting with complex decisionmaking. Discussed Palliative Medicine at Home program does not replace the role of the PCP. Patient is appropriate for palliative care due to multiple chronic conditions, including COPD, chronic pain, and atrial fibrillation. Discussed goals of care and the role of palliative care in managing symptoms and improving quality of life. - Provide ongoing support and coordination with other healthcare providers. 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 - Follow-up in 2 months to reassess condition and management. 2. Stage 3 severe COPD by GOLD classification (HCC) (J44.9) Patient is on 3L of supplemental oxygen and experiences dyspnea primarily with exertion. Currently using a nebulizer every 6 hours and taking Spiriva and Singulair. Has stopped smoking and is using nicotine patches. - Continue current medication regimen. 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 - Monitor for exacerbations and adjust treatment as necessary. 3. Chronic low back pain with sciatica, sciatica laterality unspecified, unspecified back pain laterality (M54.40) Generalized osteoarthrosis, involving multiple sites (M15.9) Other chronic pain (G89.29) Patient reports chronic pain with a baseline pain level of 7/10, reduced to 5/10 with current medication. Pain is generalized, affecting multiple sites including the back and legs. Current pain management includes hydrocodone, which has been reduced by the primary care physician. -Discussed using OTC analgesic Tylenol 500 mg two tabs three times daily to help with breakthrough pain. - Discussed the need for specialized pain management. - Coordinate with primary care physician Dr. Fall to explore referral to a electrostatic painter. 4. Generalized anxiety disorder (F41.1) Patient is currently taking Zoloft 2 tablets daily for anxiety management. - Continue current medication regimen. - Monitor for any changes in anxiety levels and adjust treatment as necessary. 5. Atrial fibrillation, unspecified type (HCC) (I48.91) Patient has a history of atrial fibrillation and is currently on Eliquis 5 mg BID and Multaq 400 mgBID. Recent echocardiogram shows good ejection fraction but presence of regurgitation. - Continue current medication regimen. - Patient to follow-up with cardiology on 12/15 to discuss potential surgical interventions. 6. History of lung cancer (Z85.118) History of lobectomy of lung (Z90.2) Patient has a history of lung cancer with partial lung resection (2003). Currently in remission. - No current follow-up with a putty tinter maker; consider referral to Dr. Guzmán for ongoing monitoring. 7. Dependence on supplemental oxygen (Z99.81) Patient is dependent on 3L of supplemental oxygen and experiences anxiety about leaving the house due to fear of running out of oxygen. 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 - Monitor oxygen levels and adjust flow rate as necessary. 8. care home (current) use of 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 (Z79.52) Patient is currently taking prednisone every other day for COPD management. Reports increased appetite and possible edema as side effects. - Continue current prednisone regimen. - Monitor for side effects and adjust dosage as necessary. Our department has identified criteria for timely palliative care involvement for managing pain in patients with serious, advanced illness which best reflects our clinical expertise and patient need.These guidelines are not used to determine which patients are appropriate for other palliative careservices. These criteria focus on the severity of the patient's serious illness and are adopted from the [employer] Medicaid [employer] Hospice qualifying criteria. This patient does not currently meet our departmental criteria for assuming pain management. As such, I recommend consulting pain management for management of their chronic pain. Please do not hesitate to contact me in the event of a change in clinical status that would warrantfurther review for management of their pain. Serious Illness Conversation: -Discussed the 2 pathways in Palliative care approach: Recovery focused, still seeking invasive treatment for conditions which Denia is at this time. We discussed if there were any declines in healthsuch as CHF IV, COPD stage IV, end stages of disease with total debility, unable to leave home thatwe could move to comfort focused care. She verbally states understanding Existence of Advance Directives: Yes, documentation or copy in medical record HCPOA: Boyfriend Mike Gregg I spent 20 minutes in face to face time with the patient discussing advance care planning and/or goals of care. We were clear about the voluntary nature of this discussion and the completion of advance directives. This time was exclusive of any other counseling provided during this time. Next Visit: 8 weeks via virtual visit Palliative Medicine Nurse to do telephonic follow-up: No Head Correction Officer Services: Telephonic discussion and assessment for community resources: Has portable tanks, is scared to leave her home. Could use a system that is rechargeable such as Inogen. Pt needs to be able to go see specialists such as pulmonology and cardiology Referral to R[place]: No, not at this time Recommendations will be communicated back to the consulting service by way of shared electronic medical record. Some elements copied from PCP note dated 10/17/24 , which have been updated where appropriate, and reflect current medical decision making from today, 11/23/24 Gregor Fernandez APRN.CNP November 23, 2024 9:53 AM documented in this encounterReg[facility] NoteHNO ID: [id number] Author: GREGOR FERNANDEZ APRN.CNP Service: ? Author Type: Nurse Practitioner Type: Progress Notes Filed: 11/23/2024 10:01 Note Text: PALLIATIVE MEDICINE AT HOME INITIAL CONSULT SERVICE DATE: 11/23/2024 Referring Physician: Yoseph Fall [id number] [facility] [place] [address] Primary Physician: Yoseph Fall MD IDENTIFICATION AND INTRODUCTION: Denia Gonzalez is a 69 year old female This visit took place Virtually; I have communicated my name and active licensure. The patient's identity and physical location were verified at the time of this visit. The patient or their legal medical device sales representative has been informed of the risks and benefits of -- and alternatives to -- treatment through a remote evaluation and consents to proceed with the evaluation remotely. The patient is being seen with daughter in law Recording using [employer] software for draft documentation of the visit was discussed with the patient/authorized medical device sales representative; all questions welcomed and answered. Patient/authorized medical device sales representative agreed to proceed REASON FOR CONSULT: Introduction to services, assessment/recommendation, goals of care, support PERTINENT MEDICAL HISTORY: Denia Gonzalez is a 69-year-old female with PM Hx of COPD on 2-3 L nasal cannula 16/11. She has a history of non-small cell lung cancer, s/p right lobectomy 04/22/2004. RLS (restless legs syndrome), History of ETOH abuse,Chronic hypoxic respiratory failure, on home oxygen therapy, Anxiety, Depression, Smoker,Asthma, Hypertension, Migraines. She is referred to palliative care for COPD stage III, and low back pain chronic. Pt states she does not see a putty tinter maker, she is not seeing pain management Subjective Denia Gonzalez is a 69-year-old female with a history of COPD, lung cancer, and chronic pain, presenting for palliative care consultation. Denia reports chronic pain that is constant and affects multiple areas, including her head and legs. The pain is exacerbated by walking short distances and is associated with chest tightness. She rates her pain as 7/10 before taking medication and 5/10 after medication, noting that the pain never fully resolves. She has been on hydrocodone since 2003, previously taking 4 tablets per day, but her current prescription is limited to 2 tablets per day. She also takes Tylenol, 2 tablets per day, but is restricted from taking more due to potential interactions with her other medications. She denies nausea, emesis, constipation, or diarrhea, and uses Dulcolax PRN for rare instances of constipation. Denia has a history of lung cancer with a partial lobectomy and is currently in remission. She is scheduled for a lung cancer screening but has not yet seen a putty tinter maker. She uses 3 liters of oxygen and a nebulizer every 6 hours since her last hospitalization. She reports dyspnea with walking but not while sitting, and experiences fatigue, requiring daily naps. She is also on Spiriva, Singulair, and prednisone every other day for COPD management. She has successfully quit smoking and is using nicotine patches. Denia has a history of atrial fibrillation and was hospitalized in September for 11-12 days. 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 She is currently on Eliquis BID, carvedilol, and verapamil BID for blood pressure management. She also takes a diuretic for lower extremity edema, which has improved in one foot but persists in the other. She denies taking losartan. Denia has not left her house since before , except for medical emergencies and appointments. She uses portable oxygen when leaving the house but reports anxiety about running out of oxygen. She relies on her boyfriend and grandson for support and uses a wheelchair for longer distances. She receives home care from [facility] and the [facility] heart team. She manages her own medications but is expecting assistance with medication organization soon. She also takes omeprazole daily, ropinirole at night, and Zoloft BID. SOCIAL HISTORY: Social History Tobacco Use Smoking status: Former Current packs/day: 1.00 Average packs/day: 1 pack/day for 55.6 years (55.6 ttl pk-yrs) Types: Cigarettes Start date: 1969 Smokeless tobacco: Never Vaping Use Vaping status: Never Used Substance Use Topics Alcohol use: Yes Comment: Nothing since 03/2012. Drug use: No PAST MEDICAL HISTORY: PAST MEDICAL HISTORY Diagnosis Date Closed fracture of unspecified part of humerus Arm fracture Dysthymic disorder Depression (non-psychotic) Essential hypertension, benign 04/26/2006 Generalized anxiety disorder Anxiety, Generalized Generalized osteoarthrosis, involving multiple sites Osteoarthritis - renee. hands, knees Malignant neoplasm of bronchus and lung, unspecified site (HCC) 04/26/2003 Kera (more content not included)...[facility]07-30-2025 Telephone encounter Note* Telephone Encounter - Heena Howell - 11/22/2024 1:08 PM EDT VC appt made I need to make chart and mail GRADES 1 THROUGH 5 TEACHER packet. Working on getting records scanned in. [id number] NoteHNO ID: [id number] Author: GREGOR FERNANDEZ APRN.CNP Service: ? Author Type: Nurse Practitioner Type: Progress Notes Filed: 11/21/2024 14:29 Note Text: PALLIATIVE MEDICINE AT HOME INITIAL CONSULT SERVICE DATE: 11/21/2024 Referring Physician: SELF Primary Physician: Yoseph Fall MD NO SHOW; sent to [facility]07-28-2025 History of Present illness Narrative* Gregor Fernandez APRN.CNP - 11/20/2024 7:41 PM EDT PALLIATIVE MEDICINE AT HOME INITIAL CONSULT SERVICE DATE: 11/21/2024 Referring Physician: SELF Primary Physician: Yoseph Fall MD NO SHOW; sent to ribbon lapper tender documented in this encounterReg[facility]-28-2025 Telephone encounter Note * Telephone Encounter - Sukhi Marrero, KAREN - 11/20/2024 3:14 PM EDT Rafa RN with [facility] calls to let provider know that he is going to see patient one time next week prior to discharge from their services. Rafa reports his goals have been met for nursing but patient continues to report yellow/green/brownsputum. Rafa reports bilateral lung sounds are diminished but other than that no fever or other symptoms. Patient is requesting the prescription for cefdinir as she was not able to take the Levaquin ordered by the hospital because of being on the Multaq. Per previous notes, notified Rafa that patient would need to be seen in office. Rafa reports that patient thinks Dr. Fall is back so requesting again. Notified Dr. Fall is out until 11/23/2024 and on-call will not prescribe with out seeing patient. Requested message be sent to Dr. Elderbrock for when returns or if GRAD[employer] 1 [employer]ROUGH 5 TEACHER would review. Sukhi Marrero, RN [facility]07-21-2025 Telephone encounter Note* Telephone Encounter - Padmini Abbott RN - 11/13/2024 4:51 PM EDT Mike returned call and given provider's message below. Andres Abbott RN [facility]07-21-2025 Miscellaneous Notes* Telephone Encounter - Padmini Abbott RN - 11/13/2024 4:51 PM EDT Mike returned call and given provider's message below. Andres Abbott RN * Telephone Encounter - Naima Haines MA - 11/13/2024 3:46 PM EDT Message left for Mike to call back. Naima Haines MA * Telephone Encounter - Yoseph Fall MD - 11/13/2024 3:32 PM EDT New Rx done for 15 mg every day or every other day as needed Yoseph Fall MD * Telephone Encounter - Martínez Louie, KAREN - 11/13/2024 2:08 PM EDT Brenda- nurse- [facility]- phoned to check on pcp reply to message below. Brenda reports when pt was discharged from [facility] she took the prednisone dose prescribed by [facility], and therefor ran out early. Advised message below was sent to pcp and we will call pt with his reply. * Telephone Encounter - Padmini Abbott RN - 11/10/2024 3:43 PM EDT Patient's partner, Mike Marysol calling with pt speaking in background. Mike states pt has run out ofher prednisone and it is too early for another refill. Reports she was not taking the prednisone asprescribed. States after a recent hospital visit she thought she was to be taking the prednisone daily. Pt has been taking prednisone 15 mg daily and not every other day as ordered. Pt reports she takes prednisone for breathing issues and skin issues. Reports itching of her mid back. Mike states there are scratch cagle and some scabbed areas to her mid and lower back but no open areas. Sometimes she gets rash areas on her arms but Mike states her arms look okay now. Please advise. Padmini Abbott RN documented in this encounterRegency Hospital [facility]07-21-2025 Telephone encounter Note * Telephone Encounter - Naima Haines MA - 11/13/2024 3:46 PM EDT Message left for Mike to call back. Naima Haines MA [facility]07-21-2025 Telephone encounter Note* Telephone Encounter - Yoseph Fall MD - 11/13/2024 3:32 PM EDT New Rx done for 15 mg every day or every other day as needed Yoseph Fall MD [facility]07-21-2025 Telephone encounter Note* Telephone Encounter - Martínez Louie RN - 11/13/2024 2:08 PM EDT Brenda- nurse- [facility]- phoned to check on pcp reply to message below. Brenda reports when pt was discharged from [facility] she took the prednisone dose prescribed by [facility], and therefor ran out early. Advised message below was sent to pcp and we will call pt with his reply. [facility]07-18-[facility] Telephone encounter Note* Telephone Encounter - Padmini Abbott RN - 11/10/2024 3:43 PM EDT Patient's partner, Mike Marysol calling with pt speaking in background. Mike states pt has run out ofher prednisone and it is too early for another refill. Reports she was not taking the prednisone asprescribed. States after a recent hospital visit she thought she was to be taking the prednisone daily. Pt has been taking prednisone 15 mg daily and not every other day as ordered. Pt reports she takes prednisone for breathing issues and skin issues. Reports itching of her mid back. Mike states there are scratch cagle and some scabbed areas to her mid and lower back but no open areas. Sometimes she gets rash areas on her arms but Mike states her arms look okay now. Please advise. Padmini Abbott RN [facility]07-11-2025 Telephone encounter Note* Telephone Encounter - Yoseph Fall MD - 11/03/2024 5:04 PM EDT Noted Yoseph Fall MD [facility]07-11-2025 Miscellaneous Notes* Telephone Encounter - Yoseph Fall MD - 11/03/2024 5:04 PM EDT Noted Yoseph Fall MD * Telephone Encounter - Martínez Louie RN - 10/25/2024 1:19 PM EDT Rafa [facility] reports patient asked him to call to see if pcp would send Rx to her pharmacy in place of levaquin. Reports pt has a productive cough and chest congestion. Advised Rafa pcp is out of the office for the rest of this week and all of next week, and [place] doctorrecommends ov. Rafa asking if pt can do VV. Advised a provider would have to do an assessment and listen to patient's lung. Rafa agreeable and will let pt know. * Telephone Encounter - Yoseph Fall MD - 10/24/2024 4:55 PM EDT OK to just see her for severe COPD Yoseph Fall MD * Telephone Encounter - Jennifer Hennessy LPN - 10/24/2024 4:25 PM EDT Ubaldo with [facility] calls in regard to order for Palliative Care. In regards to DX: Ubaldo reports they can see pt for severe COPD. Ubaldo reports they cannot treat ptfor back pain unless it is in regards to cancer or something like that. Pt would need to see a painspecialist for that. Please review and advise. Jennifer Hennessy LPN documented in this encounterRegency [facility]07-09-2025 Telephone encounter Note * Telephone Encounter - Nelson Robert APRN.CNP - 11/01/2024 10:31 AM EDT Noted for [facility]. Rx sent. The following approved medication requests have been transmitted electronically. Requested Prescriptions Pending Prescriptions Disp Refills nicotine (NICODERM) 14 mg/24 hr 28 patch 5 Sig: apply one patch transdermally as directed every 24 hours Nelson Robert APRN.[place] [facility]07-09-2025 Miscellaneous Notes* Telephone Encounter - Nelson Robert APRN.CNP - 11/01/2024 10:31 AM EDT Noted for [facility]. Rx sent. The following approved medication requests have been transmitted electronically. Requested Prescriptions Pending Prescriptions Disp Refills nicotine (NICODERM) 14 mg/24 hr 28 patch 5 Sig: apply one patch transdermally as directed every 24 hours Nelson Robert APRN.GRAPHIC DESIGN SPECIALIST * Telephone Encounter - Meenu Gurrola RN - 10/31/2024 3:47 PM EDT Fred nurse with [facility] calling in plan of care as he did nursing evaluation on patient today. Nursing will continue to see her 1x/week x 3 weeks. He states pt is also requesting a refill on her Nicotine Patch that the hospital prescribed for her. Send to [facility]. Pended. Next appt 01/[address] Fall. documented in [facility]Reg[facility] Telephone encounter Note * Telephone Encounter - Meenu Gurrola RN - 10/31/2024 3:47 PM EDT Fred nurse with [facility] calling in plan of care as he did nursing evaluation on patient today. Nursing will continue to see her 1x/week x 3 weeks. He states pt is also requesting a refill on her Nicotine Patch that the hospital prescribed for her. Send to [facility]. Pended. Next appt 01/[address] Fall. [facility]07-02-2025 Telephone encounter Note* Telephone Encounter - Martínez Louie RN - 10/25/2024 1:19 PM EDT Rafa [facility] reports patient asked him to call to see if pcp would send Rx to her pharmacy in place of levaquin. Reports pt has a productive cough and chest congestion. Advised Rafa pcp is out of the office for the rest of this week and all of next week, and OC doctorrecommends ov. Rafa asking if pt can do VV. Advised a provider would have to do an assessment and listen to patient's lung. Rafa agreeable and will let pt know. [facility]07-01-2025 Telephone encounter Note* Telephone Encounter - Lindsay Rios RN - 10/24/2024 5:25 PM EDT Rafa with [facility] is calling due to pharmacy unable to fill levaquin due to level 1 severe reaction with the multaq patient takes. When this happened when patient was d/c from [facility] the antibitoc was change to cefdinir 300mg. Rafa needs called back with information along with patient and a different medication sent to pharmacy. [facility]07-01-2025 Miscellaneous Notes* Telephone Encounter - Lindsay Rios RN - 10/24/2024 5:25 PM EDT Rafa with [facility] is calling due to pharmacy unable to fill levaquin due to level 1 severe reaction with the multaq patient takes. When this happened when patient was d/c from [facility] the antibitoc was change to cefdinir 300mg. Rafa needs called back with information along with patient and a different medication sent to pharmacy. * Telephone Encounter - Clarisse Anguiano RN - 10/24/2024 5:00 PM EDT Pt called and is notified of providers message and instructions. Pt voices understanding. Clarisse Anguiano RN * Telephone Encounter - Yoseph Fall MD - 10/24/2024 4:55 PM EDT OK for another 7 days of Levaquin Yoseph Fall MD * Telephone Encounter - Padmini Abbott RN - 10/24/2024 3:55 PM EDT Patient's significant other, Mike Marysol calling in with pt speaking in the background. Mike states patient wants to be back on the antibiotic that she was on when she got out of the hospital. She is coughing up yellow/brown sputum. Pt denies fever, shortness of breath at rest, chest pain, wheezing or other sx's. SpO2 96% on 3 LPM. Reports lasix pills that PCP ordered for her are helping her leg swelling. Please call patient back with reply. [phone] Padmini Abbott RN documented in this encounterRegency [facility]-2025 Telephone encounter Note * Telephone Encounter - Clarisse Anguiano RN - 10/24/2024 5:00 PM EDT Pt called and is notified of providers message and instructions. Pt voices understanding. Clarisse Anguiano RN [facility]07-01-2025 Telephone encounter Note* Telephone Encounter - Yoseph Fall MD - 10/24/2024 4:55 PM EDT OK to just see her for severe COPD Yoseph Fall MD [facility]07-01-2025 Telephone encounter Note* Telephone Encounter - Yoseph Fall MD - 10/24/2024 4:55 PM EDT OK for another 7 days of Levaquin Yoseph Fall MD [facility]07-01-2025 Telephone encounter Note* Telephone Encounter - Jennifer Hennessy LPN - 10/24/2024 4:25 PM EDT Ubaldo with [facility] calls in regard to order for Palliative Care. In regards to DX: Ubaldo reports they can see pt for severe COPD. Ubaldo reports they cannot treat ptfor back pain unless it is in regards to cancer or something like that. Pt would need to see a painspecialist for that. Please review and advise. Jennifer Hennessy LPN [facility]07-01-2025 Telephone encounter Note* Telephone Encounter - Padmini Abbott RN - 10/24/2024 3:55 PM EDT Patient's significant other, Mike Marysol calling in with pt speaking in the background. Mike states patient wants to be back on the antibiotic that she was on when she got out of the hospital. She is coughing up yellow/brown sputum. Pt denies fever, shortness of breath at rest, chest pain, wheezing or other sx's. SpO2 96% on 3 LPM. Reports lasix pills that PCP ordered for her are helping her leg swelling. Please call patient back with reply. [phone] Padmini Abbott RN [facility]07-01-2025 Telephone encounter Note* Telephone Encounter - Richard Broussard RN - 10/24/2024 2:50 PM EDT Palliative Medicine Referral Assessment Referral Accepted: Yes, Location: Pall Med at Home. Patient current location: Home: Timeframe for schedulin-2 weeks Pall Med appropriate diagnosis: Diagnosis J44.9 (ICD-10-CM) - Stage 3 severe COPD by GOLD classification (HCC) M54.40,G89.29 (ICD-10-CM) - Chronic low back pain with sciatica, sciatica laterality unspecified, unspecified back pain laterality Established with Inpatient Pall Med team: no Reason for consult: introduction to services, goals of care, fatigue, dyspnea, symptom support , and anxiety/mood and chronic pain Virtual Visit Clinic location: [facility] [place]- no safety concerns identified by nurse. Richard Broussard RN October 24, 2024 [facility]07-01-2025 Miscellaneous Notes* Telephone Encounter - Richard Broussard RN - 10/24/2024 2:50 PM EDT Palliative Medicine Referral Assessment Referral Accepted: Yes, Location: Pall Med at Home. Patient current location: Home: Timeframe for schedulin-2 weeks Pall Med appropriate diagnosis: Diagnosis J44.9 (ICD-10-CM) - Stage 3 severe COPD by GOLD classification (HCC) M54.40,G89.29 (ICD-10-CM) - Chronic low back pain with sciatica, sciatica laterality unspecified, unspecified back pain laterality Established with Inpatient Pall Med team: no Reason for consult: introduction to services, goals of care, fatigue, dyspnea, symptom support , and anxiety/mood and chronic pain Virtual Visit [facility]- no safety concerns identified by nurse. Richard Broussard RN October 24, 2024 documented in this encounterRegency [facility]-2025 Telephone encounter Note * Telephone Encounter - Naima Haines MA - 10/23/2024 3:42 PM EDT Rafa notified. Referral faxed, demo, insurance card, OV note, med list faxed to [facility] at [phone] with Palliative Care specified on fax. Naima Haines MA [facility]06-30-2025 Miscellaneous Notes* Telephone Encounter - Naima Haines MA - 10/23/2024 3:42 PM EDT Rafa notified. Referral faxed, demo, insurance card, OV note, med list faxed to [facility] at [phone] with Palliative Care specified on fax. Naima Haines MA * Telephone Encounter - Yoseph Fall MD - 10/23/2024 2:46 PM EDT OK for Palliative Care consult as requested Yoseph Fall MD * Telephone Encounter - Clarisse Anguiano RN - 10/23/2024 1:33 PM EDT Rafa JONES [facility] called in about Pt and states je added liquid Mucinex to Pt's medication list as she is taking OTC at home. He states she was recently treated at the hospital for Pneumonia, and sheis coughing up thick yellow/ortiz sputum. Lung sounds are diminished with expiratory wheezes, but he reports this is baseline for her. He states her pulse ox has been running high 90s on 3L of O2. He states Pt quit smoking a few weeks ago before she went into the hospital for Pneumonia, and she has COPD. He reports Pt is off of antibiotics. Pt denies Shortness of Breath, but was placed on Lasix last Wednesday for new swelling and the Pt reports it hasn't gotten any better. Rafa states it's +1 pitting. He states she is still having the continued chronic generalized pain and is on the [place] for it. He states the Pt would like a Palliative care referral for pain and breathing. I told him I don't think they do Palliative care for pain, but for breathing they do. Clarisse Anguiano RN documented in this encounterRegency Hospital [facility]06-30-2025 Telephone encounter Note * Telephone Encounter - Yoseph Fall MD - 10/23/2024 2:46 PM EDT OK for Palliative Care consult as requested Yoseph Fall MD [facility]06-30-2025 Telephone encounter Note* Telephone Encounter - Clarisse Anguiano RN - 10/23/2024 1:33 PM EDT Rafa JONES [facility] called in about Pt and states je added liquid Mucinex to Pt's medication list as she is taking OTC at home. He states she was recently treated at the hospital for Pneumonia, and sheis coughing up thick yellow/ortiz sputum. Lung sounds are diminished with expiratory wheezes, but he reports this is baseline for her. He states her pulse ox has been running high 90s on 3L of O2. He states Pt quit smoking a few weeks ago before she went into the hospital for Pneumonia, and she has COPD. He reports Pt is off of antibiotics. Pt denies Shortness of Breath, but was placed on Lasix last Wednesday for new swelling and the Pt reports it hasn't gotten any better. Rafa states it's +1 pitting. He states she is still having the continued chronic generalized pain and is on the [place] for it. He states the Pt would like a Palliative care referral for pain and breathing. I told him I don't think they do Palliative care for pain, but for breathing they do. Clarisse Anguiano RN [facility]06-27-2025 Telephone encounter Note* Telephone Encounter - Padmini Abbott RN - 10/20/2024 4:43 PM EDT Daughter returned call and given provider's message below. Padmini Abbott RN [facility]06-27-2025 Miscellaneous Notes* Telephone Encounter - Padmini Abbott RN - 10/20/2024 4:43 PM EDT Daughter returned call and given provider's message below. Padmini Abbott RN * Telephone Encounter - Naima Haines MA - 10/20/2024 4:27 PM EDT Message left for Sinan to call back. Naima Haines MA * Telephone Encounter - Yoseph Fall MD - 10/20/2024 4:20 PM EDT OK to start Lasix 20 mg daily as ordered to help with the swelling Yoseph Fall MD * Telephone Encounter - Padmini Abbott RN - 10/20/2024 3:41 PM EDT Patient's daughter Sinan Gonzalez calling in, with patient speaking in the background. Reports both of patient's feet have been very swollen for about 3 days now and asking if Dr. Fall will order pt a water pill. Swelling goes up into each ankle area. She has tried contacting [facility] over the past couple of days and no response, however daughter states she did not leave a message with them, only tried calling. Patient states she will lay on couch and elevate feet this afternoon. Denies any increased shortness of breath. Wears continuous 3L oxygen and SpO2 is 96%. Heart rate 93. Denies chest pain, nausea ordizziness. States she does get anxious at times and will experience mild chest tightness at times. Please call daughter with reply, . Padmini Abbott RN documented in this encounterRegency Hospital [facility]06-27-2025 Telephone encounter Note * Telephone Encounter - Naima Haines MA - 10/20/2024 4:27 PM EDT Message left for Symontee to call back. Naima Haines MA [facility]06-27-2025 Telephone encounter Note* Telephone Encounter - Yoseph Fall MD - 10/20/2024 4:20 PM EDT OK to start Lasix 20 mg daily as ordered to help with the swelling Yoseph Fall MD [facility]06-27-2025 Telephone encounter Note* Telephone Encounter - Padmini Abbott RN - 10/20/2024 3:41 PM EDT Patient's daughter Sinan Gonzalez calling in, with patient speaking in the background. Reports both of patient's feet have been very swollen for about 3 days now and asking if Dr. Fall will order pt a water pill. Swelling goes up into each ankle area. She has tried contacting [facility] over the past couple of days and no response, however daughter states she did not leave a message with them, only tried calling. Patient states she will lay on couch and elevate feet this afternoon. Denies any increased shortness of breath. Wears continuous 3L oxygen and SpO2 is 96%. Heart rate 93. Denies chest pain, nausea ordizziness. States she does get anxious at times and will experience mild chest tightness at times. Please call daughter with reply, . Padmini Abbott RN [facility]06-27-2025 Telephone encounter Note* Telephone Encounter - Yoseph Fall MD - 10/20/2024 9:25 AM EDT Noted Palliative Care consult ordered Yoseph Fall MD [facility]06-27-2025 Miscellaneous Notes* Telephone Encounter - Yoseph Fall MD - 10/20/2024 9:25 AM EDT Noted Palliative Care consult ordered Yoseph Fall MD * Telephone Encounter - Martínez Louie, RN - 10/19/2024 12:56 PM EDT Monae- nurse- [facility]- reports she saw patient today. Noted pt had mild non pitting edema in ankles and feet. Pt did report she ate clam chowder the night before. Reports pt has wheezing in upper lobes, otherwise LCTA. Pt wears 3LO2. Reports patient has chronic COPD, chronic pain and anxiety. Monae discussed palliative care with patient and states pt is agreeable to referral to speak with palliative just to get information. Monae does not need call back. Asking pcp to place referral to palliative care. documented in this encounterRegency Hospital [facility]06-27-2025 Telephone encounter Note * Telephone Encounter - Yoseph Fall MD - 10/20/2024 9:14 AM EDT Noted and agree Yoseph Fall MD [facility]06-27-2025 Miscellaneous Notes* Telephone Encounter - Yoseph Fall MD - 10/20/2024 9:14 AM EDT Noted and agree Yoseph Fall MD * Telephone Encounter - Judy Bliss RN - 10/19/2024 1:05 PM EDT Mercedez PT calling from [facility] to report plan of care for patient and physical therapy will visit patient 1 times a week for first week, 2 times a week for 4 weeks, and 1 time a week for 3 weeks. Physical therapy will work with patient on strength, gait transfers, and balance. No call back needed unless Questions Judy Bliss RN * Telephone Encounter - Judy Bliss RN - 10/18/2024 10:43 AM EDT Vilma OT calling from [facility] to report plan of care for patient and occupational therapy will visit patient 1 time a week for 3 weeks. Occupational therapy will work with patient on equipment trainingsafety. Patient asking if it ok to take tylenol, GasX, and dulcolax? Please call back patient with answer. Vilma asking for a SW consult so she can get Breanna to see patient to help with palliative care? Patient states that she has daily panic attacks due to her new diagnosis. Patient was asking about Xanax. Please review and Advise, Judy Bliss RN documented in this encounterRegency [facility]-2025 Telephone encounter Note * Telephone Encounter - Judy Bliss RN - 10/19/2024 1:05 PM EDT Mercedez PT calling from [facility] to report plan of care for patient and physical therapy will visit patient 1 times a week for first week, 2 times a week for 4 weeks, and 1 time a week for 3 weeks. Physical therapy will work with patient on strength, gait transfers, and balance. No call back needed unless Questions Judy Bliss RN [facility]-26-2025 Telephone encounter Note* Telephone Encounter - Martínez Louie RN - 10/19/2024 12:56 PM EDT Monae- nurse- [facility]- reports she saw patient today. Noted pt had mild non pitting edema in ankles and feet. Pt did report she ate clam chowder the night before. Reports pt has wheezing in upper lobes, otherwise LCTA. Pt wears 3LO2. Reports patient has chronic COPD, chronic pain and anxiety. Monae discussed palliative care with patient and states pt is agreeable to referral to speak with palliative just to get information. Monae does not need call back. Asking pcp to place referral to palliative care. [facility]06-25-2025 Telephone encounter Note* Telephone Encounter - Judy Bliss RN - 10/18/2024 10:43 AM EDT Vilma OT calling from [facility] to report plan of care for patient and occupational therapy will visit patient 1 time a week for 3 weeks. Occupational therapy will work with patient on equipment trainingsafety. Patient asking if it ok to take tylenol, GasX, and dulcolax? Please call back patient with answer. Vilma asking for a SW consult so she can get Breanna to see patient to help with palliative care? Patient states that she has daily panic attacks due to her new diagnosis. Patient was asking about Xanax. Please review and Advise, Judy Bliss RN [facility]06-24-2025 History of Present illness Narrative* Yoseph Fall MD - 10/17/2024 2:20 PM EDT Transitional Care Management TCM Eligibility Documentation The following information was gathered during patient outreach 10/10/2024 Date of Outreach: Outreach Attempt 1: Contact Made Date of Discharge 10/09/2024 Provider Documentation Denia Gonzalez is a 69 year old female here today for a follow up from recent hospitalization. I have reviewed the patient's hospital course including discharge summary, discharge medications , and follow up needs with the patient and any family members present at today's visit. HPI 14 day TCM/telephone visit I have communicated my name and active licensure. The patient's identity and physical location wereverified at the time of this visit. Either the patient or their legal medical device sales representative has been informed of the risks and benefits of -- and alternatives to -- treatment through a remote evaluation andconsents to proceed with the evaluation remotely. Quit smoking 45 days ago. Is wearing the patch. States for the most part she feels better and thinks her breathing is some better. Has some days when she craves the cigarettes. Pt admitted to [facility] on 09/29/24 if SOB, arrived to ER via squad. She was discharged home on 10/09/24 with dx of Aortic Valve Stenosis and A-fib. Started on Nicotine 14 mg patches, Verapamil 180 mg 1 pillBID, Multaq 400 mg 1 pill BID, Eliquis 5 mg 1 pill BID, Coreg 6.25 mg 1 pill BID and Levofloxacin 500 mg daily x 6 days. Verapamil 240 mg was discontinued. Advised that Eliquis would be discontinued if platelet count dropped less than 50,000 or hemoglobin dropped less than 8 g%. Pt was advised to follow up with Dr. Guzmán Pulm in 1 month, Dr. Junito Madrid, Cardio in 1 month,and Lindsay Whitehead CNP with [facility] in 1 week. Is using 3 L continuous oxygen. Anila getting scheduled for TAVR Is going to be having HH PT come out 3 x a week. She has more pain due to moving around more. Has had nurses out a few times to check her vitals. Is getting set up with Pain Management through Hospice. Below copied from [employer]: History of Present Illness Chief Complaint: Shortness of Breath Informant: patient and EMS Narrative Narrative: Patient is a 69-year-old female with past medical history of hypertension and COPD who wears 2 to 3L nasal cannula oxygen 16/11. She states that she has a home nebulizer machine and takes prednisone every other day. She states over the past 5 to 7 days she has been having increased cough and shortness of breath. Secondary to this she increased her prednisone to 40 mg and has been taking a reported taper. Despite the added prednisone and her continued use of breathing treatments she states coughand shortness of breath has persisted. Secondary to that she presents for evaluation MDM Narrative Medical decision making narrative: Patient arrived to the ER tachycardic and tachypneic but satting in the mid 90s on her normal 2 to 3 L nasal cannula oxygen. The patient denies any chest pain and reports that her increased shortnessof breath is associated with cough but states has been no fevers chills or known sick contact. As she has been taking steroids and using her breathing treatments without symptom improvement there is concern for underlying pneumonia pneumothorax or CHF exacerbation. Patient could also have increasedshortness of breath secondary to acute blood loss anemia. Therefore basic labs viral swab and chestx-ray were obtained. White count is normal and she is afebrile going against an infectious process.Chest x- ray revealed no sign of pneumonia pneumothorax or pleural effusion. COVID influenza and RSVtesting were negative. H&H is stable going against acute blood loss anemia. The patient was given IV steroids as well as albuterol and DuoNeb nebulizers. She did have mild to moderate improvementof her symptoms but still states that she feels short of breath. As she is failing outpatient therapy at home the decision was made to contact medicine to discuss admission. After discussion with thehospitalist as the patient is failing outpatient therapy they do agree to bring her in for continued observation and treatment. Plan This is a 69-year-old female admitted for acute hypoxic and hypercarbic respiratory failure. She was started on BiPAP. Sputum cultures tested positive for Pseudomonas and on Levaquin. Patient also had reactive RPR. #Acute hypoxic and hypercapnic respiratory failure due to COPD exacerbation and pneumonia sputum cultures growing Pseudomonas has a history of non-small cell lung cancer. Had right lung surgery Patient had 2 dosages of Levaquin 1 oral and then 1 IV. Discharged on 6 more doses of Levaquin 500 milligram daily. breathing treatment with bronchodilators. Titrate oxygen to maintain sats >90% Sputum cultures grew stenotrophomonas and Pseudomonas both sensitive to Levaquin Currently on 2 L of oxygen. Home oxygen qualification test ordered. Follow-up in pulmonary clinic. Discharged on burst therapy of prednisone 40 mg daily for 5 days. Follow-up pulmonary clinic. # A-fib with RVR Patient went back into tachycardia today with heart rate going as high as the 180s. EKG showed A-fib with RVR 2D echo done showed severe concentric left ventricular hypertrophy with EF of 70% and stage I diastolic dysfunction as well as severely calcified aortic valve with severe aortic valve stenosis and mean peak gradient of 50 mmHg as well as trivial aortic valve regurgitation. Cardiology on board. Management as per cardiology. per cardiology, she will need to be worked up for TAVR on outpatient basis once she follows up withcardiology on discharge. On verapamil-SR 180 mg twice daily. Discussed with the car restorer Dr. Hopkins today. Discharge on verapamil and Carvedilol 6.25 mg twice daily. On therapeutic Lovenox. She converted to normal sinus rhythm. Discharged on dronedarone and Eliquis5 mg twice daily. Follow-up in cardiology office with Dr. Leroy in 1 week. Needs referral to TAVR. #Benign essential hypertension on verapamil #Anxiety and depression: On Ativan nightly and buspirone #Restless leg syndrome: On pramipexole #GERD: on PPI DVT prophylaxis: On therapeutic Lovenox. Change to PO eliquis. Discharge medication reconciliation done. Discharge follow-up instructions completed. Discharge process discussed with the patient and all questions were answered to patient's satisfaction. Follow with PCP in 1 to 2 weeks Total time spent, exact 35 minutes on discharge meds reconciliation, examination, coordination of care with nurses and ancillary staff, review of imaging and blood test and discussion with the patient on follow-up instructions. PHYSICAL EXAMINATION BP 105/64 Pulse 82 Temp 36.6 C (97.8 F) Wt 67.1 kg (148 lb) LMP 02/27/2005 SpO2 94% BMI26.22 kg/m ASSESSMENT/PLAN: 1. Stage 3 severe COPD by GOLD classification (HCC) - ICD9: 496, ICD10: J44.9 (primary diagnosis) Stable Continue current medications 2. Chronic low back pain with sciatica, sciatica laterality unspecified, unspecified back pain laterality - ICD9: 724.2, 724.3, 338.29, ICD10: M54.40, G89.29 Chronic low back pain May increase hydrocodone to bid To see Pain management - HYDROCODONE 5 MG-ACETAMINOPHEN 325 MG TABLET 3. Essential hypertension, benign - ICD9: 401.1, ICD10: I10 - Controlled - Continue current medications - Recommend home blood pressure monitoring, to bring results to next visit - Encouraged sodium restriction, DASH or Mediterranean diet - Recommend regular aerobic exercise 4. Tobacco use disorder - ICD9: 305.1, ICD10: F17.200 Congratulated on quitting 5. Generalized anxiety disorder - ICD9: 300.02, ICD10: F41.1 Continue current medications. 6. Aortic valve stenosis, etiology of cardiac valve disease unspecified - ICD9: 424.1, ICD10: I35.0 Follow with cardiology for consideration for TAVR Follow up in 3 months I agree with the Chief Complaint, ROS, and Past Histories independently gathered by the clinical sales support rep and the remaining scribed note accurately describes my personal service to the patient. Yoseph Fall MD The documentation for this note was completed by Naima Haines MA acting as scribe for Yoseph Fall MD. October 17, 2024 2:34 PM. Naima Haines MA documented [facility] NoteHNO ID: [id number] Author: YOSEPH FALL MD Service: ? Author Type: Physician Type: Progress Notes Filed: 10/17/2024 17:08 Note Text: Transitional Care Management TCM Eligibility Documentation The following information was gathered during patient outreach 10/10/2024 Date of Outreach: Outreach Attempt 1: Contact Made Date of Discharge 10/09/2024 Provider Documentation Denia Gonzalez is a 69 year old female here today for a follow up from recent hospitalization. I have reviewed the patient's hospital course including discharge summary, discharge medications , and follow up needs with the patient and any family members present at today's visit. HPI 14 day TCM/telephone visit I have communicated my name and active licensure. The patient's identity and physical location were verified at the time of this visit. Either the patient or their legal medical device sales representative has been informed of the risks and benefits of -- and alternatives to -- treatment through a remote evaluation and consents to proceed with the evaluation remotely. Quit smoking 45 days ago. Is wearing the patch. States for the most part she feels better and thinks her breathing is some better. Has some days when she craves the cigarettes. Pt admitted to [facility] on 09/29/24 if SOB, arrived to ER via squad. She was discharged home on 10/09/24 with dx of Aortic Valve Stenosis and A-fib. Started on Nicotine 14 mg patches, Verapamil 180 mg 1 pill BID, Multaq 400 mg 1 pill BID, Eliquis 5 mg 1 pill BID, Coreg 6.25 mg 1 pill BID and Levofloxacin 500 mg daily x 6 days. Verapamil 240 mg was discontinued. Advised that Eliquis would be discontinued if platelet count dropped less than 50,000 or hemoglobin dropped less than 8 g%. Pt was advised to follow up with Dr. Guzmán Pulm in 1 month, Dr. Junito Madrid, Cardio in 1 month, and Lindsay Whitehead GRAPHIC DESIGN SPECIALIST with [facility] in 1 week. Is using 3 L continuous oxygen. Will be getting scheduled for TAVR Is going to be having HH PT come out 3 x a week. She has more pain due to moving around more. Has had nurses out a few times to check her vitals. Is getting set up with Pain Management through Hospice. Below copied from [employer]: History of Present Illness Chief Complaint: Shortness of Breath Informant: patient and EMS Narrative Narrative: Patient is a 69-year-old female with past medical history of hypertension and COPD who wears 2 to 3 L nasal cannula oxygen 16/11. She states that she has a home nebulizer machine and takes prednisone every other day. She states over the past 5 to 7 days she has been having increased cough and shortness of breath. Secondary to this she increased her prednisone to 40 mg and has been taking a reported taper. Despite the added prednisone and her continued use of breathing treatments she states cough and shortness of breath has persisted. Secondary to that she presents for evaluation MDM Narrative Medical decision making narrative: Patient arrived to the ER tachycardic and tachypneic but satting in the mid 90s on her normal 2 to 3 L nasal cannula oxygen. The patient denies any chest pain and reports that her increased shortness of breath is associated with cough but states has been no fevers chills or known sick contact. As she has been taking steroids and using her breathing treatments without symptom improvement there is concern for underlying pneumonia pneumothorax or CHF exacerbation. Patient could also have increased shortness of breath secondary to acute blood loss anemia. Therefore basic labs viral swab and chest x-ray were obtained. White count is normal and she is afebrile going against an infectious process. Chest x-ray revealed no sign of pneumonia pneumothorax or pleural effusion. COVID influenza and RSV testing were negative. HAND is stable going against acute blood loss anemia. The patient was given IV steroids as well as albuterol and DuoNeb nebulizers. She did have mild to moderate improvement of her symptoms but still states that she feels short of breath. As she is failing outpatient therapy at home the decision was made to contact medicine to discuss admission. After discussion with the hospitalist as the patient is failing outpatient therapy they do agree to bring her in for continued observation and treatment. Plan This is a 69-year-old female admitted for acute hypoxic and hypercarbic respiratory failure. She was started on BiPAP. Sputum cultures tested positive for Pseudomonas and on Levaquin. Patient also had reactive RPR. #Acute hypoxic and hypercapnic respiratory failure due to COPD exacerbation and pneumonia sputum cultures growing Pseudomonas has a history of non-small cell lung cancer. Had right lung surgery Patient had 2 dosages of Levaquin 1 oral and then 1 IV. Discharged on 6 more doses of Levaquin 500 milligram daily. breathing treatment with bronchodilators. Titrate oxygen to maintain sats >90 (more content not included)...[facility]06-20-2025 Telephone encounter Note* Telephone Encounter - Naima Haines MA - 10/13/2024 4:52 PM EDT Edda notified. Naima Haines MA [facility]06-20-2025 Miscellaneous Notes* Telephone Encounter - Naima Haines MA - 10/13/2024 4:52 PM EDT Edda notified. Naima Haines MA * Telephone Encounter - Yoseph Fall MD - 10/13/2024 4:48 PM EDT OK for delay of care order as requested Yoseph Fall MD * Telephone Encounter - Judy Bliss RN - 10/13/2024 4:38 PM EDT Edda from [facility] calls and states that they were supposed to do a PT evaluation this week, however, they are still waiting on insurance. Edda asking for delay care order. Please review and advise, Judy Bliss RN documented in this encounterReg[facility]06-20-2025 Telephone encounter Note * Telephone Encounter - Yoseph Fall MD - 10/13/2024 4:48 PM EDT OK for delay of care order as requested Yoseph Fall MD [facility]-20-[facility] Telephone encounter Note* Telephone Encounter - Judy Bliss RN - 10/13/2024 4:38 PM EDT Edda from [facility] calls and states that they were supposed to do a PT evaluation this week, however, they are still waiting on insurance. Edda asking for delay care order. Please review and advise, Judy Bliss RN [facility]06-19-2025 Telephone encounter Note* Telephone Encounter - Naima Haines MA - 10/12/2024 11:55 AM EDT Tried to reach pt, VM full, unable to leave message. Naima Haines MA [facility]06-19-2025 Miscellaneous Notes* Telephone Encounter - Naima Haines MA - 10/12/2024 11:55 AM EDT Tried to reach pt, VM full, unable to leave message. Naima Haines MA * Telephone Encounter - Yoseph Fall MD - 10/12/2024 11:46 AM EDT She may go back to this dose of prednisone; will review at her appt Yoseph Fall MD * Telephone Encounter - Naima Haines MA - 10/12/2024 10:11 AM EDT Per pt Patient states that in the hospital she was given 40 mg of the prednisone for 4 days. Also the hydrocodone was given to her 3 x/daily. [place] refilled today #30 to take 1 pill BID. Do you want to refill for her to increase the dosage to 3 x a day or do you want to discuss furtherat pt appt on 10/17/24 Naima Haines MA * Telephone Encounter - Orly Stacy - 10/12/2024 9:46 AM EDT Prescription Refill Information The patient has been identified by name and date of : Yes Caregiver verified no other encounters exist for this prescription request: Yes Caregiver confirmed with patient/requestor that no other refills are due, in the near future, with this provider at this time: Yes The last office visit in the department: 07-06-24 Does the patient have a future office visit with this provider/department: Yes Requested Prescriptions Pending Prescriptions Disp Refills predniSONE (DELTASONE) 10 mg tablet 30 tablet 5 Sig: Take 1.5 tablets by mouth every other day. HYDROcodone-acetaminophen (NORCO) 5-325 mg per tablet 30 tablet 0 Sig: Take 1 tablet by mouth two times a day as needed for pain for up to 30 days. Patient states that in the hospital she was given 40 mg of the prednisone for 4 days. Also the hydrocodone was given to her 3 x/daily. Orly Stacy October 12, 2024 9:47 AM documented in this encounterReg[facility]06-19-2025 Telephone encounter Note * Telephone Encounter - Yoseph Fall MD - 10/12/2024 11:46 AM EDT She may go back to this dose of prednisone; will review at her appt Yoseph Fall MD [facility]06-19-20[facility] Telephone encounter Note* Telephone Encounter - Naima Haines MA - 10/12/2024 10:11 AM EDT Per pt Patient states that in the hospital she was given 40 mg of the prednisone for 4 days. Also the hydrocodone was given to her 3 x/daily. [place] refilled today #30 to take 1 pill BID. Do you want to refill for her to increase the dosage to 3 x a day or do you want to discuss furtherat pt appt on 10/17/24 Naima Haines MA [facility]-19-2025 Telephone encounter Note* Telephone Encounter - Orly Stacy - 10/12/2024 9:46 AM EDT Prescription Refill Information The patient has been identified by name and date of : Yes Caregiver verified no other encounters exist for this prescription request: Yes Caregiver confirmed with patient/requestor that no other refills are due, in the near future, with this provider at this time: Yes The last office visit in the department: 07-06-24 Does the patient have a future office visit with this provider/department: Yes Requested Prescriptions Pending Prescriptions Disp Refills predniSONE (DELTASONE) 10 mg tablet 30 tablet 5 Sig: Take 1.5 tablets by mouth every other day. HYDROcodone-acetaminophen (NORCO) 5-325 mg per tablet 30 tablet 0 Sig: Take 1 tablet by mouth two times a day as needed for pain for up to 30 days. Patient states that in the hospital she was given 40 mg of the prednisone for 4 days. Also the hydrocodone was given to her 3 x/daily. Orly Stacy October 12, 2024 9:47 AM [facility]-19-[facility] Telephone encounter Note* Telephone Encounter - Yoseph Fall MD - 10/12/2024 9:35 AM EDT OK to refill as ordered Yoseph Fall MD [facility]06-19-2025 Miscellaneous Notes* Telephone Encounter - Yoseph Fall MD - 10/12/2024 9:35 AM EDT OK to refill as ordered Yoseph Fall MD * Telephone Encounter - Judy Bliss RN - 10/11/2024 3:59 PM EDT The patient has been identified by name [...] future office visit with this provider/department: Yes 10/17/2024 Requested Prescriptions Pending Prescriptions Disp Refills HYDROcodone-acetaminophen (NORCO) 5-325 mg per tablet 30 tablet 0 Sig: Take 1 tablet by mouth two times a day as needed for pain for up to 30 days. Judy Bliss RN October 11, 2024 4:00 PM documented in this encounterReg[facility]06-18-2025 Telephone encounter Note * Telephone Encounter - Judy Bliss RN - 10/11/2024 3:59 PM EDT The patient has been identified by name [...] future office visit with this provider/department: Yes 10/17/2024 Requested Prescriptions Pending Prescriptions Disp Refills HYDROcodone-acetaminophen (NORCO) 5-325 mg per tablet 30 tablet 0 Sig: Take 1 tablet by mouth two times a day as needed for pain for up to 30 days. Judy Bliss RN October 11, 2024 4:00 PM [facility]-17-[facility] Telephone encounter Note* Telephone Encounter - Naima Haines MA - 10/10/2024 4:46 PM EDT Detailed message left on Rafa's identified VM. Naima Haines MA [facility]06-17-2025 Miscellaneous Notes* Telephone Encounter - Naima Haines MA - 10/10/2024 4:46 PM EDT Detailed message left on Rafa's identified VM. Naima Haines MA * Telephone Encounter - Yoseph Fall MD - 10/10/2024 4:41 PM EDT Noted OK to continue Coreg and inhalers; will monitor Yoseph Fall MD * Telephone Encounter - Martínez Louie RN - 10/10/2024 4:30 PM EDT Rafa- [facility]- reports he did start of care today and nursing will see pt 2 x week for 2 weeks then 1 x week for 2 weeks. Reports pt refused SW. States she doesn't need it. Reports pt is wearing 3LO2 even though discharge states she should wear 2LO2. Rafa added tylenol prn to patient's med profile since pt states she takes it prn. Rafa reports all of patient's inhalers and nebulizer medication interact with coreg. Please advise. Pt is scheduled for hosp f/u with pcp on 10/17/24 documented in this encounterRegency [facility]06-17-2025 Telephone encounter Note * Telephone Encounter - Yoseph Fall MD - 10/10/2024 4:41 PM EDT Noted OK to continue Coreg and inhalers; will monitor Yoseph Fall MD [facility]-17-[facility] Telephone encounter Note* Telephone Encounter - Martínez Louie RN - 10/10/2024 4:30 PM EDT Rafa- [facility]- reports he did start of care today and nursing will see pt 2 x week for 2 weeks then 1 x week for 2 weeks. Reports pt refused SW. States she doesn't need it. Reports pt is wearing 3LO2 even though discharge states she should wear 2LO2. Rafa added tylenol prn to patient's med profile since pt states she takes it prn. Rafa reports all of patient's inhalers and nebulizer medication interact with coreg. Please advise. Pt is scheduled for hosp f/u with pcp on 10/17/24 [facility]-17[facility]2025 NoteHNO ID: [id number] Author: NAIMA HAINES MA Service: ? Author Type: [facility] Type: Progress Notes Filed: 10/12/2024 09:36 Note Text: TRANSITION CARE MANAGEMENT (TCM) INITIAL CONTACT [facility] Outreach Provider Action/FYI: 14 Day TCM Started on Nicotine patches 14 mg daily, Verapamil changed from 240 mg to 180 mg 1 pill BID, Multaq 400 mg 1 pill BID, Coreg 6.25 mg 1 Pill BID, Levofloxacin 500 mg 1 pill daily x 6 days and Eliquis 5 mg 1 pill BID (discontinue if platelet count drop below 50,000 or Hemoglobin drops below 8. [facility] addendum to discharge summary stating that pharmacy raised concern about interaction between the Levaquin and Multaq. Levofloxacin was changed to Cefdinir. Follow up with Pulm, Dr. Guzmán in 1 month. Follow up with Cardio, Dr. Madrid in 1 month Follow up with Cardio [facility] [employer] 5 TEACHER, Lindsay Whitehead in 1 week 10/10/24-Message left for Mike to call back. Tried to reach pt at her number but VM is full. Initial contact with patient post discharge, spoke to 10/10/24: message left for pt to call back. Patient identified by name and . TRANSITION CARE MANAGEMENT INITIAL OUTREACH DOCUMENTATION: 10/10/2024 Date of Outreach: Outreach Attempt 1: Contact Made Date of Discharge 10/09/2024 SUMMARY: -Pt discharged from [facility] on 10/09/24. -Admitted for: 1) Aortic Valve Stenosis 2) A-fib Below copied from [employer]: History of Present Illness Chief Complaint: Shortness of Breath Informant: patient and EMS Narrative Narrative: Patient is a 69-year-old female with past medical history of hypertension and COPD who wears 2 to 3 L nasal cannula oxygen 16/11. She states that she has a home nebulizer machine and takes prednisone every other day. She states over the past 5 to 7 days she has been having increased cough and shortness of breath. Secondary to this she increased her prednisone to 40 mg and has been taking a reported taper. Despite the added prednisone and her continued use of breathing treatments she states cough and shortness of breath has persisted. Secondary to that she presents for evaluation MDM Narrative Medical decision making narrative: Patient arrived to the ER tachycardic and tachypneic but satting in the mid 90s on her normal 2 to 3 L nasal cannula oxygen. The patient denies any chest pain and reports that her increased shortness of breath is associated with cough but states has been no fevers chills or known sick contact. As she has been taking steroids and using her breathing treatments without symptom improvement there is concern for underlying pneumonia pneumothorax or CHF exacerbation. Patient could also have increased shortness of breath secondary to acute blood loss anemia. Therefore basic labs viral swab and chest x-ray were obtained. White count is normal and she is afebrile going against an infectious process. Chest x-ray revealed no sign of pneumonia pneumothorax or pleural effusion. COVID influenza and RSV testing were negative. HANDH is stable going against acute blood loss anemia. The patient was given IV steroids as well as albuterol and DuoNeb nebulizers. She did have mild to moderate improvement of her symptoms but still states that she feels short of breath. As she is failing outpatient therapy at home the decision was made to contact medicine to discuss admission. After discussion with the hospitalist as the patient is failing outpatient therapy they do agree to bring her in for continued observation and treatment. Plan This is a 69-year-old female admitted for acute hypoxic and hypercarbic respiratory failure. She was started on BiPAP. Sputum cultures tested positive for Pseudomonas and on Levaquin. Patient also had reactive RPR. #Acute hypoxic and hypercapnic respiratory failure due to COPD exacerbation and pneumonia sputum cultures growing Pseudomonas has a history of non-small cell lung cancer. Had right lung surgery Patient had 2 dosages of Levaquin 1 oral and then 1 IV. Discharged on 6 more doses of Levaquin 500 milligram daily. breathing treatment with bronchodilators. Titrate oxygen to maintain sats >90% Sputum cultures grew stenotrophomonas and Pseudomonas both sensitive to Levaquin Currently on 2 L of oxygen. Home oxygen qualification test ordered. Follow-up in pulmonary clinic. Discharged on burst therapy of prednisone 40 mg daily for 5 days. Follow-up pulmonary clinic. # A-fib with RVR Patient went back into tachycardia today with heart rate going as high as the 180s. EKG showed A-fib with RVR 2D echo done showed severe concentric left ventricular hypertrophy with EF of 70% and stage I diastolic dysfunction as well as severely calcified aortic valve with severe aortic valve stenosis and mean peak gradient of 50 mmHg as well as trivial aortic valve regurgitation. Cardiology on board. Management as per cardiology. per cardiology, she will need to be worked up for TAVR on outp (more content not included)...[facility]06-17-2025 Telephone encounter Note* Telephone Encounter - Naima Haines MA - 10/10/2024 8:24 AM EDT TCM note started. Naima Haines MA [facility]06-17-2025 History of Present illness Narrative* Naima Haines, JOS - 10/10/2024 8:24 AM EDT TRANSITION CARE MANAGEMENT (TCM) INITIAL CONTACT [facility] Outreach Provider Action/FYI: 14 Day TCM Started on Nicotine patches 14 mg daily, Verapamil changed from 240 mg to 180 mg 1 pill BID, Rmpuwi762 mg 1 pill BID, Coreg 6.25 mg 1 Pill BID, Levofloxacin 500 mg 1 pill daily x 6 days and Eliquis 5 mg 1 pill BID (discontinue if platelet count drop below 50,000 or Hemoglobin drops below 8. [facility] addendum to discharge summary stating that pharmacy raised concern about interaction between the Levaquin and Multaq. Levofloxacin was changed to Cefdinir. Follow up with Pulm, Dr. Guzmán in 1 month. Follow up with Cardio, Dr. Madrid in 1 month Follow up with Cardio [facility] 5 TEACHER, Lindsay Whitehead in 1 week 10/10/24-Message left for Mike to call back. Tried to reach pt at her number but VM is full. Initial contact with patient post discharge, spoke to 10/10/24: message left for pt to call back. Patient identified by name and . TRANSITION CARE MANAGEMENT INITIAL OUTREACH DOCUMENTATION: 10/10/2024 Date of Outreach: Outreach Attempt 1: Contact Made Date of Discharge 10/09/2024 SUMMARY: -Pt discharged from [facility] on 10/09/24. -Admitted for: 1) Aortic Valve Stenosis 2) A-fib Below copied from [employer]: History of Present Illness Chief Complaint: Shortness of Breath Informant: patient and EMS Narrative Narrative: Patient is a 69-year-old female with past medical history of hypertension and COPD who wears 2 to 3L nasal cannula oxygen 16/11. She states that she has a home nebulizer machine and takes prednisone every other day. She states over the past 5 to 7 days she has been having increased cough and shortness of breath. Secondary to this she increased her prednisone to 40 mg and has been taking a reported taper. Despite the added prednisone and her continued use of breathing treatments she states coughand shortness of breath has persisted. Secondary to that she presents for evaluation MDM Narrative Medical decision making narrative: Patient arrived to the ER tachycardic and tachypneic but satting in the mid 90s on her normal 2 to 3 L nasal cannula oxygen. The patient denies any chest pain and reports that her increased shortnessof breath is associated with cough but states has been no fevers chills or known sick contact. As she has been taking steroids and using her breathing treatments without symptom improvement there is concern for underlying pneumonia pneumothorax or CHF exacerbation. Patient could also have increasedshortness of breath secondary to acute blood loss anemia. Therefore basic labs viral swab and chestx-ray were obtained. White count is normal and she is afebrile going against an infectious process.Chest x- ray revealed no sign of pneumonia pneumothorax or pleural effusion. COVID influenza and RSVtesting were negative. H&H is stable going against acute blood loss anemia. The patient was given IV steroids as well as albuterol and DuoNeb nebulizers. She did have mild to moderate improvementof her symptoms but still states that she feels short of breath. As she is failing outpatient therapy at home the decision was made to contact medicine to discuss admission. After discussion with thehospitalist as the patient is failing outpatient therapy they do agree to bring her in for continued observation and treatment. Plan This is a 69-year-old female admitted for acute hypoxic and hypercarbic respiratory failure. She was started on BiPAP. Sputum cultures tested positive for Pseudomonas and on Levaquin. Patient also had reactive RPR. #Acute hypoxic and hypercapnic respiratory failure due to COPD exacerbation and pneumonia sputum cultures growing Pseudomonas has a history of non-small cell lung cancer. Had right lung surgery Patient had 2 dosages of Levaquin 1 oral and then 1 IV. Discharged on 6 more doses of Levaquin 500 milligram daily. breathing treatment with bronchodilators. Titrate oxygen to maintain sats >90% Sputum cultures grew stenotrophomonas and Pseudomonas both sensitive to Levaquin Currently on 2 L of oxygen. Home oxygen qualification test ordered. Follow-up in pulmonary clinic. Discharged on burst therapy of prednisone 40 mg daily for 5 days. Follow-up pulmonary clinic. # A-fib with RVR Patient went back into tachycardia today with heart rate going as high as the 180s. EKG showed A-fib with RVR 2D echo done showed severe concentric left ventricular hypertrophy with EF of 70% and stage I diastolic dysfunction as well as severely calcified aortic valve with severe aortic valve stenosis and mean peak gradient of 50 mmHg as well as trivial aortic valve regurgitation. Cardiology on board. Management as per cardiology. per cardiology, she will need to be worked up for TAVR on outpatient basis once she follows up withcardiology on discharge. On verapamil-SR 180 mg twice daily. Discussed with the car restorer Dr. Hopkins today. Discharge on verapamil and Carvedilol 6.25 mg twice daily. On therapeutic Lovenox. She converted to normal sinus rhythm. Discharged on dronedarone and Eliquis5 mg twice daily. Follow-up in cardiology office with Dr. Leroy in 1 week. Needs referral to TAVR. #Benign essential hypertension on verapamil #Anxiety and depression: On Ativan nightly and buspirone #Restless leg syndrome: On pramipexole #GERD: on PPI DVT prophylaxis: On therapeutic Lovenox. Change to PO eliquis. Discharge medication reconciliation done. Discharge follow-up instructions completed. Discharge process discussed with the patient and all questions were answered to patient's satisfaction. Follow with PCP in 1 to 2 weeks Total time spent, exact 35 minutes on discharge meds reconciliation, examination, coordination of care with nurses and ancillary staff, review of imaging and blood test and discussion with the patient on follow-up instructions. Do you have a hospital follow up appointment with your PCP? Appointment on 10/17/24 with PCP. MEDICATIONS: Many patients have questions or concerns about their medications once they are home. Were you prescribed any new medications? If yes, what are those medications? Nicotine patches 14 mg daily Verapamil changed from 240 mg to 180 mg 1 pill BID Multaq 400 mg 1 pill BID Coreg 6.25 mg 1 Pill BID Levofloxacine 500 mg 1 pill daily x 6 days Eliquis 5 mg 1 pill BID (discontinue if platelet count drop below 50,000 or Hemoglobin drops below 8. [facility] addendum to discharge summary stating that pharmacy raised concern about interaction between the Levaquin and Multaq. Levofloxacin was changed to Cefdinir. Were you told to hold any medications? No Were any of your medications discontinued? Yes Verapamil 240 mg [facility] addendum to discharge summary stating that pharmacy raised concern about interaction between the Levaquin and Multaq. Levofloxacin was changed to Cefdinir. Do you have any questions about getting or taking your medications? Your discharge instructions/After visit Summary (AVS) are important in guiding you through the recovery process. Is there anything I might help you understand? Do you have all the necessary equipment and supplies at home? Medical records from recent hospitalization: Placed for provider to review [facility] Miscellaneous Notes* Telephone Encounter - Naima Haines MA - 10/10/2024 8:24 AM EDT TCM note started. Naima Haines MA * Telephone Encounter - Clarisse Anguiano RN - 10/09/2024 7:46 PM EDT Pt's significant other Mike called and is notified of providers message and instructions. He voices understanding. Pt was discharged today you can't do TCM on same day as discharge, you have to waituntil at least 1 day after D/C. Clarisse Anguiano RN * Telephone Encounter - Naima Haines MA - 10/09/2024 7:35 PM EDT Message left for pt or significant other Mike to call back. Please start a TCM encounter/note when pt calls back. Has appt for hospital d/c on 10/17/24. Naima Haines MA * Telephone Encounter - Yoseph Fall MD - 10/09/2024 7:33 PM EDT They may wait until [facility] can get the Multaq tomorrow Yoseph Fall MD * Telephone Encounter - Clarisse Anguiano RN - 10/09/2024 7:20 PM EDT Pt's significant other Mike called in and reports Pt was in the hospital for 11 days and released about an hour and a half ago. He states [facility] in [place] doesn't have the Multaq in stock, but they will get it tomorrow. He said they will have it tomorrow. Pt took BP while on phone 142/69 HR 116, she hadn't used the BP monitor in a while but said she didn't think it had been working right when she had. He doesn't know if she got both doses for today or just the morning dose. She also had Coreg ordered. He didn't know if provider wanted to to order something else. I told him I would let provider know and have him get back to them. Please call and advise. Clarisse Anguiano RN documented in this encounterReg[facility] NotePatient Outreach (FAMPWS) DENIA GONZALEZ ([id number]) 1955 F Date Time Provider Department 10/10/24 NAIMA HAINESWS During your visit today, we recorded the following information about you: Naima Haines MA 10/12/2024 9:36 AM Signed TRANSITION CARE MANAGEMENT (TCM) INITIAL CONTACT [facility] Provider Action/FY: 14 Day TCM Started on Nicotine patches 14 mg daily, Verapamil changed from 240 mg to 180 mg 1 pill BID, Multaq 400 mg 1 pill BID, Coreg 6.25 mg 1 Pill BID, Levofloxacin 500 mg 1 pill daily x 6 days and Eliquis 5 mg 1 pill BID (discontinue if platelet count drop below 50,000 or Hemoglobin drops below 8. [facility] addendum to discharge summary stating that pharmacy raised concern about interaction between the Levaquin and Multaq. Levofloxacin was changed to Cefdinir. Follow up with Pulm, Dr. Guzmán in 1 month. Follow up with Cardio, Dr. Madrid in 1 month Follow up with Cardio [facility], Lindsay Whitehead in 1 week 10/10/24-Message left for Mike to call back. Tried to reach pt at her number but VM is full. Initial contact with patient post discharge, spoke to 10/10/24: message left for pt to call back. Patient identified by name and . TRANSITION CARE MANAGEMENT INITIAL OUTREACH DOCUMENTATION: 10/10/2024 Date of Outreach: Outreach Attempt 1: Contact Made Date of Discharge 10/09/2024 SUMMARY: -Pt discharged from [facility] on 10/09/24. -Admitted for: 1) Aortic Valve Stenosis 2) A-fib Below copied from [employer]: History of Present Illness Chief Complaint: Shortness of Breath Informant: patient and EMS Narrative Narrative: Patient is a 69-year-old female with past medical history of hypertension and COPD who wears 2 to 3 L nasal cannula oxygen 16/11. She states that she has a home nebulizer machine and takes prednisone every other day. She states over the past 5 to 7 days she has been having increased cough and shortness of breath. Secondary to this she increased her prednisone to 40 mg and has been taking a reported taper. Despite the added prednisone and her continued use of breathing treatments she states cough and shortness of breath has persisted. Secondary to that she presents for evaluation MDM Narrative Medical decision making narrative: Patient arrived to the ER tachycardic and tachypneic but satting in the mid 90s on her normal 2 to 3 L nasal cannula oxygen. The patient denies any chest pain and reports that her increased shortness of breath is associated with cough but states has been no fevers chills or known sick contact. As she has been taking steroids and using her breathing treatments without symptom improvement there is concern for underlying pneumonia pneumothorax or CHF exacerbation. Patient could also have increased shortness of breath secondary to acute blood loss anemia. Therefore basic labs viral swab and chest x-ray were obtained. White count is normal and she is afebrile going against an infectious process. Chest x-ray revealed no sign of pneumonia pneumothorax or pleural effusion. COVID influenza and RSV testing were negative. HANDH is stable going against acute blood loss anemia. The patient was given IV steroids as well as albuterol and DuoNeb nebulizers. She did have mild to moderate improvement of her symptoms but still states that she feels short of breath. As she is failing outpatient therapy at home the decision was made to contact medicine to discuss admission. After discussion with the hospitalist as the patient is failing outpatient therapy they do agree to bring her in for continued observation and treatment. Plan This is a 69-year-old female admitted for acute hypoxic and hypercarbic respiratory failure. She was started on BiPAP. Sputum cultures tested positive for Pseudomonas and on Levaquin. Patient also had reactive RPR. #Acute hypoxic and hypercapnic respiratory failure due to COPD exacerbation and pneumonia sputum cultures growing Pseudomonas has a history of non-small cell lung cancer. Had right lung surgery Patient had 2 dosages of Levaquin 1 oral and then 1 IV. Discharged on 6 more doses of Levaquin 500 milligram daily. breathing treatment with bronchodilators. Titrate oxygen to maintain sats >90% Sputum cultures grew stenotrophomonas and Pseudomonas both sensitive to Levaquin Currently on 2 L of oxygen. Home oxygen qualification test ordered. Follow-up in pulmonary clinic. Discharged on burst therapy of prednisone 40 mg daily for 5 days. Follow-up pulmonary clinic. # A-fib with RVR Patient went back into tachycardia today with heart rate going as high as the 180s. EKG showed A-fib with RVR 2D echo done showed severe concentric left ventricular hypertrophy with EF of 70% and stage I diastolic dysfunction as well as severely calcified aortic valve with severe aortic valve stenosis and mean peak gradi (more content not included)...[facility]06-16-2025 Telephone encounter Note* Telephone Encounter - Clarisse Anguiano RN - 10/09/2024 7:46 PM EDT Pt's significant other Mike called and is notified of providers message and instructions. He voices understanding. Pt was discharged today you can't do TCM on same day as discharge, you have to waituntil at least 1 day after D/C. Clarisse Anguiano RN [facility] Telephone encounter Note* Telephone Encounter - Naima Haines MA - 10/09/2024 7:35 PM EDT Message left for pt or significant other Mike to call back. Please start a TCM encounter/note when pt calls back. Has appt for hospital d/c on 10/17/24. Naima Haines MA [facility] Telephone encounter Note* Telephone Encounter - Yoseph Fall MD - 10/09/2024 7:33 PM EDT They may wait until [facility] can get the Multaq tomorrow Yoseph Fall MD [facility] Telephone encounter Note* Telephone Encounter - Clarisse Anguiano RN - 10/09/2024 7:20 PM EDT Pt's significant other Mike called in and reports Pt was in the hospital for 11 days and released about an hour and a half ago. He states [facility] in [place] doesn't have the Multaq in stock, but they will get it tomorrow. He said they will have it tomorrow. Pt took BP while on phone 142/69 HR 116, she hadn't used the BP monitor in a while but said she didn't think it had been working right when she had. He doesn't know if she got both doses for today or just the morning dose. She also had Coreg ordered. He didn't know if provider wanted to to order something else. I told him I would let provider know and have him get back to them. Please call and advise. Clarisse Anguiano, RN [facility]06-16[facility] Discharge summary [facility] Medical Records Department [address] [place] [address] Discharge Summary 10/09/24 1558 MR#: [id number] Acct: [id number] Name: DENIA GONZALEZ Rep #:[id number] : 1955 69 From: Alessandro Liu PCP: Dr. Yoseph Fall MD Status:AD M IN Location: [place] [address] Providers Date of Admission: 09/29/24 Date of Discharge: 10/09/24 Primary Care Physician: Dr. Yoseph Fall MD Consultations 10/02/24 09:21 Consult: Cardiology Routine Consulting Provider: Junito Madrid Reason for Consult: New afib RVR EMERGENT Consult: No MD Notified: Yes Date Notified: 10/02/24 Time Notified: Method of Notification: Text Reason For Visit: COPD EXACERBATION Diagnosis Discharge Diagnosis (1) Aortic valve stenosis: Status: Acute Code(s): I35.0 - Nonrheumatic aortic (valve) stenosis Qualifiers: Cardiac valve disease etiology: nonrheumatic Qualified Code(s): I35.0 - Nonrheumatic aortic (valve) stenosis (2) Afib: Status: Acute Code(s): I48.91 - Unspecified atrial fibrillation Plan This is a 69-year-old female admitted for acute hypoxic and hypercarbic respiratory failure. She was started on BiPAP. Sputum cultures tested positivefor Pseudomonas and on Levaquin. Patient also hadreactive RPR. #Acute hypoxic and hypercapnic respiratory failure due to COPD exacerbation and pneumonia * sputum cultures growing Pseudomonas * has a history of non-small cell lung cancer. Had right lung surgery * Patient had 2 dosages of Levaquin 1 oral and then 1 IV. Discharged on 6 more doses of Levaquin 500 milligram daily. * breathing treatment with bronchodilators. Titrate oxygen to maintain sats >90% * Sputum cultures grew stenotrophomonas and Pseudomonas both sensitive to Levaquin * Currently on 2 L of oxygen. Home oxygen qualification test ordered. Follow- up in pulmonary clinic. Discharged on burst therapy of prednisone 40 mg daily for 5 days. Follow-up pulmonary clinic. # A-fib with RVR * Patient went back into tachycardia today with heart rate going as high as the 180s. EKG showed A-fib with RVR * 2D echo done showed severe concentric left ventricular hypertrophy with EF of 70% and stage I diastolic dysfunction as well as severely calcified aortic valve with severe aortic valve stenosis and mean peak gradient of 50 mmHg as well as trivial aortic valve regurgitation. * Cardiology on board. Management as per cardiology. * per cardiology, she will need to be worked up for TAVR on outpatient basis once she follows up with cardiology on discharge. On verapamil?SR 180 mg twice daily. * Discussed with the car restorer Dr. Hopkins today. Discharge on verapamil and Carvedilol 6.25 mg twice daily. * On therapeutic Lovenox. She converted to normal sinus rhythm. Discharged on dronedarone and Eliquis 5 mg twice daily. Follow-up in cardiology office with Dr. Leroy in 1 week. Needs referral to TAVR. * #Benign essential hypertension * on verapamil * #Anxiety and depression: On Ativan nightly and buspirone #Restless leg syndrome: On pramipexole #GERD: on PPI DVT prophylaxis: On therapeutic Lovenox. Change to PO eliquis. Discharge medication reconciliation done. Discharge follow-up instructions completed. Discharge process discussed with the patient and all questions wereanswered to patient's satisfaction. Follow with PCP in 1 to 2 weeks Total time spent, exact 35 minutes on discharge meds reconciliation, examination, coordination of care with nurses and ancillary staff, review of imaging and blood test and discussion with the patient on follow-up instructions. Medications at Discharge Home Medications albuterol sulfate 90 mcg/actuation aerosol inhaler (Ventolin HFA) 1 - 2 puff inhalation Q4H PRN PRNBronchodialation 04/18/13 cyclobenzaprine 10 mg tablet 10 mg PO Q12H pain 04/18/13 fluticasone propionate 50 mcg/actuation nasal spray,suspension 1 spray intranasal DAILY nasal congestion 04/18/13 montelukast 10 mg tablet 10 mg PO DAILY allergies 04/18/13 omeprazole 20 mg capsule,delayed release 20 mg PO DAILY heart burn 04/18/13 tiotropium bromide 18 mcg capsule with inhalation device (Spiriva with HandiHaler) 1 puff inhalation DAILY wheezing 04/18/13 Oxygen, Home [Home Oxygen] 2.5 lpm PRN PRN Dyspnea 10/22/13 sertraline 100 mg tablet 100 mg PO BID mood 10/22/13 fluticasone 500 mcg-salmeterol 50 mcg/dose blistr powdr for inhalation (Advair Diskus) 1 puff inhalation BID shortness of breath ##1 10/26/13 Ropinirole Hcl 0.25 mg PO QHS restless legs 09/23/14 prednisone 10 mg tablet 15 mg PO QODAY PRN FLARE UPS 04/03/15 ipratropium 0.5 mg-albuterol 3 mg (2.5 mg base)/3 mL nebulization soln 3 ml inhalation Q4HWA.RT wheezing ##30 05/13/16 lorazepam 0.5 mg tablet 0.5 mg PO QHS anxiety #7 tabs 05/05/20 nicotine (polacrilex) 2 mg gum (Nicorette) 2 mg buccal Q2H to stop smoking #20 ea 07/22/23 cholecalciferol (vitamin D3) 50 mcg (2,000 unit) capsule (Vitamin D3) 50 mcg PO DAILY vitamin 10/18/23 ipratropium 0.5 mg-albuterol 3 mg (2.5 mg base)/3 mL nebulization soln 3 ml inhalation Q6H PRN shortness of breath or wheezing #180 mL 10/18/23 buspirone 10 mg tablet 10 mg PO BID anxiety 10/02/24 hydrocodone-acetaminophen 5-325mg 5mg-325mg 1 tab PO BID PRN PRN pain 10/03/24 apixaban 5 mg tablet (Eliquis) 5 mg PO BID 1 month #60 tabs 10/09/24 carvedilol 6.25 mg tablet 6.25 mg PO BID 1 month #60 tabs 10/09/24 dronedarone 400 mg tablet (Multaq) 400 mg PO BID 30 days #60 tabs 10/09/24 levofloxacin 500 mg tablet 500 mg PO DAILY 6 days #6 tabs 10/09/24 nicotine 14 mg/24 hr daily transdermal patch 14 mg transdermal DAILY #28 ea 10/09/24 prednisone 20 mg tablet 40 mg (2 x 20 mg) PO DAILY 5 days #10 tabs 10/09/24 verapamil 180 mg 24 hr capsule,extended release 180 mg PO BID 30 days #60 caps 10/09/24 Physical Exam Narrative Seen and examined Patient heart rate is controlled in the low 100s to 90s. Regular mild sinus tachycardia. Shortness of breath is also improved. Currently on 2 L of oxygen. History of lung cancer diagnosed in 2003 andhad right lung surgery. Physical exam General: Alert, Oriented x3, Cooperative. BMI 26.1. HEENT: Atraumatic, PERRLA, EOMI, Normocephalic. Oral: No Gingival or Mucosal Lesions/ Ulcerations Neck: Supple, No JVD, Negative Carotid Bruits Chest wall/Lungs: Air entry diminished in both lungs. Cardiovascular: Regular rate and rhythm, Normal S1,S2, systolic murmur with radiation to carotids. Abdomen: Bowel Sounds Present, Soft, Non Tender, Non-Distended : No dysuria. No renal angle tenderness. No suprapubic tenderness. Extremities: No edema, Capillary Refill Less than 3 Seconds Skin: No rashes, No breakdown Musculoskeletal: No Tenderness to Palpation of Joints or Extremities Neurological: Cranial nerves II-XII grossly intact, DTR 2+/4. No acute focal neurological deficit. Psych/Mental Status: Flat affect. Weight / BMI Weight Weight: 152 lb 5.431 oz Body Mass Index (BMI) 26.1 ABG / Lab / Microbiology Data 10/09/24 05:30 10/09/24 05:30 Laboratory: Laboratory Results - last 24 hr 10/09/24 05:30: WBC 9.7, RBC 4.84, Hgb 13.5, Hct 41.6, MCV 86.0, MCH 27.9, MCHC 32.5, RDW Std Deviation 41.1, RDW Coeff of Augustin 13.1, Plt Count 181, MPV 10.0, Immature Gran % (Auto) 0.800, Neut % (Auto) 86.9 H, Lymph % (Auto) 6.9 L, [place] %(Auto) 5.3, Eos % (Auto) 0.0, Baso % (Auto) 0.1, Absolute Neuts (auto) 8.4 H, Absolute Lymphs (auto) 0.67 L, Nucleated RBC % 0, Sodium 139, Potassium 4.9, Chloride 93 L, Carbon Dioxide 40.4 H, Anion Gap 5, BUN 17, Creatinine 0.44 L, Estim Creat Clear Calc 63.35, Est GFR (MDRD) Non-Af 105, BUN/Creatinine Ratio 38.0 H, Glucose 113 H, Calcium 8.4 Microbiology: Microbiology 09/29/24 09:15 Sputum, Expectorated/Coughed Gram Stain - Final 09/29/24 09:15 Sputum, Expectorated/Coughed Respiratory Culture - Final Stenotrophomonas maltophilia Pseudomonas aeruginosa 09/29/24 06:05 Mucosa - Nasopharyngeal Respiratory Panel (PCR) - Final 09/29/24 02:30 Mucosa - Nose SARS-CoV-2, Influenza & RSV (PCR) - Final D/C Instructions DC O2, CPAP, BIPAP Needs Home O2 Discharge instructions: Yes Type of respiratory needs?: Oxygen Oxygen frequency: ContinuousContinuous oxygen liters per minute: 2 DC home with Oxygen: Yes Home O2 MD Review: I have reviewed the oxygen testing, and the patient qualifies for home oxygen equipment and portability. The patient is mobile in the home and the community. Meaningful Use Info Meaningful Use Meaningful Use Diagnoses (Choose all that apply): None applicable Ischemic Stroke Statin Dosing Therapy Reference: STATIN DOSE THERAPY REFERENCE: * Patients > 75 years receive moderate or high dose statin therapy. * Patients 75 years or YOUNGER should receive HIGH intensity statin dose unless contraindicated. You will be required to document reason for non-treatment if statin daily dose does not meet guidelines. HIGH DOSE STATIN THERAPY DAILY Atorvastatin > than or = to 40 mg Rosuvastatin > than or = to 20 mg Amlodipine + Atorvastatin > than or = to 2.5/40 mg Ezetimibe + Simvastatin 10/80 mg Simvastatin 80mg Discharge Plan Admission Admit Date/Time: 09/29/24 11:36 Primary Reason for Your Visit: Acute hypoxic hypercarbic respiratory failure, COPD exacerbation, pneumonia Attending Provider: Alessandro Palma Primary Care Provider: Yoseph Flal Consulting Providers: Dionne Porter; Jan Bolanos; Junito Madrid; Lynne Schafer Discharge Orders/Prescriptions Prescriptions: New nicotine 14 mg/24 hr Patch 24 Hour 14 mg transdermal DAILY Qty: 28 0RF verapamil 180 mg Capsule,Ext Rel. 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 omeprazole 20 MG capsule 20 mg PO DAILY Patient Comments: ACID REFLUX MEDICATION montelukast 10 MG tablet 10 mg [...] sertraline 100 MG tablet 100 mg PO BID Patient Comments: mood enhancement Oxygen, Home [Home Oxygen] 2.5 lpm NASAL PRN PRN (Reason: Dyspnea) Patient Comments: oxygen fluticasone propion-salmeterol [Advair Diskus] 1 PUFF inhaler 1 puff inhalation BID Qty: 1 0RF Patient Comments: nasal congestion Ropinirole Hcl 0.25 MG tablet 0.25 mg PO QHS Patient Comments: restless legs prednisone 10 MG tablet 15 mg PO QODAY PRN (Reason: FLARE UPS) Patient Comments: steroid for inflammation ipratropium-albuterol 3 ML solution for nebulization 3 ml inhalation Q4HWA.RT Qty: 30 0RF lorazepam 0.5 MG tablet 0.5 mg PO QHS Qty: 7 0RF nicotine (polacrilex) [Nicorette] 2 mg gum 2 mg buccal Q2H Qty: 20 0RF cholecalciferol (vitamin D3) [Vitamin D3] 50 mcg (2,000 unit) capsule 50 mcg PO DAILY ipratropium-albuterol 0.5 mg-3 mg(2.5 mg base)/3 mL solution for nebulization 3 ml inhalation Q6H PRN (Reason: shortness of breath or wheezing) Qty: 180 0RF buspirone 10 mg tablet 10 mg PO BID hydrocodone-acetaminophen 5-325 mg tablet 1 tab PO BID PRN PRN (Reason: pain) prednisone 20 mg tablet 40 mg PO DAILY 5 Days Qty: 10 0RF Discontinued verapamil 240 MG tablet 360 mg PO DAILY Patient Comments: HEART MEDICATION Referrals / Follow Up: Andriy Guzmán DO [Med Staff - Active Staff] - Within 1 Month Yoseph Fall MD [Primary Care Provider] - Junito Madrid MD [Med Staff - Active Staff] - Within 1 Month (Evaluation for moderate to severe aortic stenosis) Lindsay Whitehead PA [Med Staff - Adv Practice Prof] - Within 1 Week Disposition Disposition (needs filled in before D/C Order can be placed): Home Health Service Charges/Coding Visit Charges Inpatient E&M: 01749 Disch Hosp >30min 10/09/24 1606 Cosigner Signature (if applicable): CC: Dr. Yoseph Fall MD; Dr. Alessandro Palma MD~ Signed [facility]06-16-2025 Discharge summary [facility] Medical Records Department [address] [place] [address] Instructions for Home/Discharge Instructions 10/09/24 1542 MR#: [id number] Acct: [id number] Name: DENIA GONZALEZ Rep #:[id number] : 1955 69 From: Alessandro Liu PCP: Dr. Yoseph Fall MD Status:AD M IN Discharge Instructions DC O2, CPAP, BIPAP needs Home O2 Discharge instructions: Yes Type of respiratory needs?: Oxygen Oxygen frequency: ContinuousContinuous oxygen liters per minute: 2 Follow Up Care Test Results: Test results from this visit will be discussed in further detail at your follow- up appointment, if applicable. Discharge Plan Admission Admit Date/Time: 09/29/24 11:36 Primary Reason for Your Visit: Acute hypoxic hypercarbic respiratory failure, COPD exacerbation, pneumonia Attending Provider: Alessandro Palma Primary Care Provider: Yoseph Fall Consulting Providers: Dionne Porter; Jan Bolanos; Junito Madrid; Lynne Schafer Discharge Orders/Prescriptions Prescriptions: New nicotine 14 mg/24 hr Patch 24 Hour 14 mg transdermal DAILY Qty: 28 0RF verapamil 180 mg Capsule,Ext Rel. 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 omeprazole 20 MG capsule 20 mg PO DAILY Patient Comments: ACID REFLUX MEDICATION montelukast 10 MG tablet 10 mg [...] sertraline 100 MG tablet 100 mg PO BID Patient Comments: mood enhancement Oxygen, Home [Home Oxygen] 2.5 lpm NASAL PRN PRN (Reason: Dyspnea) Patient Comments: oxygen fluticasone propion-salmeterol [Advair Diskus] 1 PUFF inhaler 1 puff inhalation BID Qty: 1 0RF Patient Comments: nasal congestion Ropinirole Hcl 0.25 MG tablet 0.25 mg PO QHS Patient Comments: restless legs prednisone 10 MG tablet 15 mg PO QODAY PRN (Reason: FLARE UPS) Patient Comments: steroid for inflammation ipratropium-albuterol 3 ML solution for nebulization 3 ml inhalation Q4HWA.RT Qty: 30 0RF lorazepam 0.5 MG tablet 0.5 mg PO QHS Qty: 7 0RF nicotine (polacrilex) [Nicorette] 2 mg gum 2 mg buccal Q2H Qty: 20 0RF cholecalciferol (vitamin D3) [Vitamin D3] 50 mcg (2,000 unit) capsule 50 mcg PO DAILY ipratropium-albuterol 0.5 mg-3 mg(2.5 mg base)/3 mL solution for nebulization 3 ml inhalation Q6H PRN (Reason: shortness of breath or wheezing) Qty: 180 0RF buspirone 10 mg tablet 10 mg PO BID hydrocodone-acetaminophen 5-325 mg tablet 1 tab PO BID PRN PRN (Reason: pain) prednisone 20 mg tablet 40 mg PO DAILY 5 Days Qty: 10 0RF Discontinued verapamil 240 MG tablet 360 mg PO DAILY Patient Comments: HEART MEDICATION Referrals / Follow Up: Yoseph Fall MD [Primary Care Provider] - Junito Madrid MD [Med Staff - Active Staff] - Within 1 Month (Evaluation for moderate to severe aortic stenosis) Lindsay Whitehead PA [Med Staff - Adv Practice Prof] - Within 1 Week Andriy Guzmán DO [Med Staff - Active Staff] - Within 1 Month Disposition Disposition (needs filled in before D/C Order can be placed): Home Health Service 10/09/24 1558Alessandro Palma MD CC: Dr. Dionne Porter MD; Dr. Yoseph Fall MD; Dr. Junito Madrid MD; Dr. Lynne Schafer MD; Dr. Jan Bolanos MD ~ [facility]06-16-2025 [facility] Medical Records Department [address] [place] [address] Discharge Summary 10/09/24 1558 MR#: [id number] Acct: [id number] Name: DENIA GONZALEZ Rep #: [id number] : 1955 69 From: Alessandro Palma MD PCP: Dr. Yoseph Fall MD Status:DIS IN Location: [facility] [id number] Providers Date of Admission: 09/29/24 Date of Discharge: 10/09/24 Primary Care Physician: Dr. Yoseph Fall MD Consultations 10/02/24 09:21 Consult: Cardiology Routine Consulting Provider: Junito Madrid Reason for Consult: New afib RVR EMERGENT Consult: No Notified: Yes Date Notified: 10/02/24 Time Notified: : Method of Notification: Text Reason For Visit: COPD EXACERBATION Diagnosis Discharge Diagnosis (1) Aortic valve stenosis: Status: Acute Code(s): I35.0 - Nonrheumatic aortic (valve) stenosis Qualifiers: Cardiac valve disease etiology: nonrheumatic Qualified Code(s): I35.0 - Nonrheumatic aortic (valve) stenosis (2) Afib: Status: Acute Code(s): I48.91 - Unspecified atrial fibrillation Plan This is a 69-year-old female admitted for acute hypoxic and hypercarbic respiratory failure. She was started on BiPAP. Sputum cultures tested positive for Pseudomonas and on Levaquin. Patient also had reactive RPR. #Acute hypoxic and hypercapnic respiratory failure due to COPD exacerbation and pneumonia * sputum cultures growing Pseudomonas * has a history of non-small cell lung cancer. Had right lung surgery * Patient had 2 dosages of Levaquin 1 oral and then 1 IV. Discharged on 6 more doses of Levaquin 500 milligram daily. * breathing treatment with bronchodilators. Titrate oxygen to maintain sats >90% * Sputum cultures grew stenotrophomonas and Pseudomonas both sensitive to Levaquin * Currently on 2 L of oxygen. Home oxygen qualification test ordered. Follow-up in pulmonary clinic. Discharged on burst therapy of prednisone 40 mg daily for 5 days. Follow-up pulmonary clinic. # A-fib with RVR * Patient went back into tachycardia today with heart rate going as high as the 180s. EKG showed A- fib with RVR * 2D echo done showed severe concentric left ventricular hypertrophy with EF of 70% and stage I diastolic dysfunction as well as severely calcified aortic valve with severe aortic valve stenosis and mean peak gradient of 50 mmHg as well as trivial aortic valve regurgitation. * Cardiology on board. Management as per cardiology. * per cardiology, she will need to be worked up for TAVR on outpatient basis once she follows up with cardiology on discharge. On verapamil???SR 180 mg twice daily. * Discussed with the car restorer Dr. Hopkins today. Discharge on verapamil and Carvedilol 6.25 mg twice daily. * On therapeutic Lovenox. She converted to normal sinus rhythm. Discharged on dronedarone and Eliquis 5 mg twice daily. Follow-up in cardiology office with Dr. Leroy in 1 week. Needs referral to TAVR. * #Benign essential hypertension * on verapamil * #Anxiety and depression: On Ativan nightly and buspirone #Restless leg syndrome: On pramipexole #GERD: on PPI DVT prophylaxis: On therapeutic Lovenox. Change to PO eliquis. Discharge medication reconciliation done. Discharge follow-up instructions completed. Discharge process discussed with the patient and all questions were answered to patient's satisfaction. Follow with PCP in 1 to 2 weeks Total time spent, exact 35 minutes on discharge meds reconciliation, examination, coordination of care with nurses and ancillary staff, review of imaging and blood test and discussion with the patient on follow-up instructions. Medications at Discharge Home Medications albuterol sulfate [...] HandiHaler) 1 puff inhalation DAILY wheezing 04/18/13 Oxygen, Home [Home Oxygen] 2.5 lpm PRN PRN Dyspnea 10/22/13 sertraline 100 mg tablet 100 mg PO BID mood 10/22/13 fluticasone 500 mcg-salmeterol 50 mcg/dose blistr powdr for inhalation (Advair Diskus) 1 puff inhalation BID shortness of breath ##1 10/26/13 Ropinirole Hcl 0.25 mg PO QHS restless legs 09/23/14 prednisone 10 mg tablet 15 mg PO QODAY PRN FLARE UPS 04/03/15 ipratropium 0.5 mg-albuterol 3 mg (2.5 mg base)/3 mL nebulization soln 3 ml inhalation Q4HWA.RT wheezing ##30 05/13/16 lorazepam 0.5 mg tablet 0.5 mg PO QHS anxiety #7 tabs 05/05/20 nicotine (polacrilex) 2 mg gum (Nicorette) 2 mg buccal Q2H to stop (more content not included)...[facility]06-16-2025 Telephone encounter Note* Telephone Encounter - Naima Haines MA - 10/09/2024 3:56 PM EDT Detailed message left on below's identified and confidential VM. Naima Haines MA [facility]06-16-2025 Miscellaneous Notes* Telephone Encounter - Naima Haines MA - 10/09/2024 3:56 PM EDT Detailed message left on below's identified and confidential VM. Naima Haines MA * Telephone Encounter - Yoseph Fall MD - 10/09/2024 3:54 PM EDT Yes, I will follow their HH orders for SN, PT, OT Yoseph Fall MD * Telephone Encounter - Sukhi Marrero RN - 10/09/2024 3:09 PM EDT Iman with [facility] HH calls to ask if provider will follow their HH orders for SN, PT, OT. Patient discharging home today from [facility] after being treated for COPD exacerbation and new onset A-fib. Please call Iman back at [phone]. Sukhi Marrero RN [facility] Telephone encounter Note * Telephone Encounter - Yoseph Fall MD - 10/09/2024 3:54 PM EDT Yes, I will follow their HH orders for SN, PT, OT Yoseph Fall MD [facility]06-16-2025 Telephone encounter Note* Telephone Encounter - Sukhi Marrero RN - 10/09/2024 3:09 PM EDT Iman with [facility] HH calls to ask if provider will follow their HH orders for SN, PT, OT. Patient discharging home today from [facility] after being treated for COPD exacerbation and new onset A-fib. Please call Iman back at [phone]. Sukhi Marrero RN [facility]06-16-2025 Telephone encounter Note* Telephone Encounter - Yoseph Fall MD - 10/09/2024 2:09 PM EDT Noted Yoseph Fall MD [facility]06-16-2025 Miscellaneous Notes* Telephone Encounter - Yoseph Fall MD - 10/09/2024 2:09 PM EDT Noted Yoseph Fall MD * Telephone Encounter - Padmini Abbott RN - 10/09/2024 8:39 AM EDT Palma Anguiano with [facility] calling to update provider that patient has been at [facility] since 09/29/24. Padmini Abbott RN [facility] Telephone encounter Note * Telephone Encounter - Padmini Abbott RN - 10/09/2024 8:39 AM EDT Palma Anguiano with [facility] calling to update provider that patient has been at [facility] since 09/29/24. Padmini Abbott RN [facility]06-15-2025 Progress note Author Lynne Schafer [facility] Note Date/Time October 08, 2024 3:37 pm [facility] Medical Records Department [address] [place] [address] Progress Note 10/08/24 1100 MR#: [id number] Acct: [id number] Name: DENIA GONZALEZ Rep #:[id number] : 1955 69 From: Lynne Schafer MD PCP: Dr. Yoseph Fall MD Status:AD M IN Location: [place] [address] Subjective Subjective Patient seen and examined. Patient went into A-fib with RVR today with a heart rate going up to the 180s and 190s. She did complain of palpitations and some shortness of breath at time of my review. I had hoped to be able to discharge her today but in light of this A-fib with RVR decision for discharge canceled. Objective Data Objective Data Vital Signs: Vital Signs Temp Pulse Resp BP Pulse Ox O2 Del Method O2 Flow Rate 98.1 F 184 H 20 H 146/80 H 96 Nasal Cannula 2 10/08/24 08:41 10/08/24 09:11 10/08/24 08:41 10/08/24 08:41 10/08/24 08:41 10/08/24 08:41 10/08/24 08:41 FiO2 30 09/30/24 22:20 Oxygen Flow Rate (L/min) 2 Oxygen Delivery Method Nasal Cannula Weight: 157 lb 3.033 oz Body Mass Index (BMI) 26.9 Intake & Output: Intake and Output for Last 24 Hours 10/06/24 10/07/24 10/08/24 23:59 23:59 23:59 Intake Total 480 / 480 480 / 480 Output Total 700 / 700 250 / 650 400 / 400 Balance -220 / -220 230 / -170 -400 / -400 Lab / Micro Data 10/08/24 06:50 10/08/24 06:50 Labs: Laboratory Results - last 24 hr 10/08/24 06:50: WBC 8.1, RBC 4.83, Hgb 13.2, Hct 41.6, MCV 86.1, MCH 27.3, MCHC 31.7 L, RDW Std Deviation 40.7, RDW Coeff of Augustin 13.0, Plt Count 168, MPV 10.0, Immature Gran % (Auto) 0.900, Neut % (Auto) 89.1 H, Lymph % (Auto) 5.1 L, [place] %(Auto) 4.7, Eos % (Auto) 0.0, Baso % (Auto) 0.2, Absolute Neuts (auto) 7.2, Absolute Lymphs (auto) 0.41 L, Nucleated RBC % 0, Sodium 138, Potassium 4.6, Chloride 92 L, Carbon Dioxide 38.6 H, Anion Gap 7, BUN 18, Creatinine 0.51 L, Estim Creat Clear Calc 64.27, Est GFR (MDRD) Non-Af 101, BUN/Creatinine Ratio 34.4 H, Glucose 179 H, Calcium 8.1 Micro: Microbiology 09/29/24 09:15 Sputum, Expectorated/Coughed Gram Stain - Final 09/29/24 09:15 Sputum, Expectorated/Coughed Respiratory Culture - Final Stenotrophomonas maltophilia Pseudomonas aeruginosa 09/29/24 06:05 Mucosa - Nasopharyngeal Respiratory Panel (PCR) - Final 09/29/24 02:30 Mucosa - Nose SARS-CoV-2, Influenza & RSV (PCR) - Final Rhythm Strip Rhythm Strip: Sinus Rhythm Rate: 87 Physical Exam Const alert and oriented x3 Constitutional Narrative: frail General Appearance: cooperative HEENT normocephalic, head/scalp atraumatic, moist oral mucous membranes and oropharynxnormal Eyes PERRL and EOMs intact bilaterally Neck supple General: trachea midline Lymph Lymphatic: no lymphedema noted Resp Resp Narrative: mildly diminished breath sounds bibasally, mild wheezing. NO crackles. On 2 L ofoxygen by nasal canula Cardio S1 normal heart sound, S2 normal heart sound and no murmurs Cardio Narrative: afib with RVR, HR in the 170s-180s GI normal to inspection, nondistended, normoactive bowel sounds, soft to palpation,non-tender and non-distended Extremity normal capillary refill and no clubbing, cyanosis or edema General Extremity: no tenderness to palpation of joints or extremities Skin General Skin Exam: no breakdown Neuro no focal motor deficits Neuro Narrative: alert, oriented x 3, communicative, moves all extremities spontaneously Motor Exam: general weakness Psych thought process normal and cooperative Appearance: appropriate Assessment & Plan Assessment/Plan (1) Tachycardia: (2) COPD with acute exacerbation: PLAN: Plan #Acute hypoxic and hypercapnic respiratory failure due to COPD exacerbation and pneumonia * sputum cultures growing Pseudomonas * has a history of non-small cell lung cancer. * Now on p.o. levofloxacin. However since she is unable to swallow the Levaquin. Will likely DC the oral antibiotics as she completed a 7-day course of IV Levaquin. * breathing treatment with bronchodilators. Titrate oxygen to maintain sats >90% * Sputum cultures grew stenotrophomonas and Pseudomonas both sensitive to Levaquin * on 3L of oxygen by nasal canula * Also on IV Solu-Medrol. Will switch to p.o. prednisone. * # A-fib with RVR * Patient went back into tachycardia today with heart rate going as high as the 180s. EKG showed A-fib with RVR * * 2D echo done showed severe concentric left ventricular hypertrophy with EF of 70% and stage I diastolic dysfunction as well as severely calcified aortic valve with severe aortic valve stenosis and mean peak gradient of 50 mmHg as well as trivial aortic valve regurgitation. * Cardiology on board. Management as per cardiology. * per cardiology, she will need to be worked up for TAVR on outpatient basis once she follows up with cardiology on discharge. * Patient on verapamil. Per cardiology and she has converted to normal sinus rhythm will monitor for now and continue the verapamil. If this recurs she is to be placed on amiodarone drip. * Heart rate has remained stable. * On therapeutic Lovenox. She converted to normal sinus rhythm today before she can be placed on amiodarone drip. Already on verapamil. Per cardiology to place on Multaq * switch to PO eliquis. * #Benign essential hypertension * on verapamil #Anxiety and depression: On Ativan nightly and buspirone #Restless leg syndrome: On pramipexole #GERD: on PPI DVT prophylaxis: On therapeutic Lovenox. Will switch to PO eliquis. Charges/Coding Visit Charges Inpatient E&M: 67788 Subs Hosp L3 10/08/24 6225 <Electronically signed by Lynne Schafer MD> Lynne Schafer MD Cosigner Signature (if applicable): CC: ~ Signed [facility] Work Phone: 1(430) 658-382306-15-2025 Progress note Author Michael Plasencia [facility] Note Date/Time October 08, 2024 2:15 pm [facility] Medical Records Department [address] [place] [address] Progress Note - Cardiology 10/08/24 1058 MR#: [id number] Acct: [id number] Name: DENIA GONZALEZ Rep #:[id number] : 1955 69 From: Michael Plasencia MD PCP: Dr. Yoseph Fall MD Status:AD M IN Location: [place] [address] Objective Data an episode of tachycardia today Vital Signs: Vital Signs Temp Pulse Resp BP Pulse Ox O2 Del Method O2 Flow Rate 98.1 F 184 H 20 H 146/80 H 96 Nasal Cannula 2 10/08/24 08:41 10/08/24 09:11 10/08/24 08:41 10/08/24 08:41 10/08/24 08:41 10/08/24 08:41 10/08/24 08:41 FiO2 30 09/30/24 22:20 Oxygen Flow Rate (L/min) 2 Oxygen Delivery Method Nasal Cannula Weight: 157 lb 3.033 oz Body Mass Index (BMI) 26.9 Intake & Output: Intake and Output for Last 24 Hours 10/06/24 10/07/24 10/08/24 23:59 23:59 23:59 Intake Total 480 / 480 480 / 480 Output Total 700 / 700 250 / 650 400 / 400 Balance -220 / -220 230 / -170 -400 / -400 Lab / Micro Data 10/08/24 06:50 10/08/24 06:50 Labs: Laboratory Results - last 24 hr 10/08/24 06:50: WBC 8.1, RBC 4.83, Hgb 13.2, Hct 41.6, MCV 86.1, MCH 27.3, MCHC 31.7 L, RDW Std Deviation 40.7, RDW Coeff of Augustin 13.0, Plt Count 168, MPV 10.0, Immature Gran % (Auto) 0.900, Neut % (Auto) 89.1 H, Lymph % (Auto) 5.1 L, [place] %(Auto) 4.7, Eos % (Auto) 0.0, Baso % (Auto) 0.2, Absolute Neuts (auto) 7.2, Absolute Lymphs (auto) 0.41 L, Nucleated RBC % 0, Sodium 138, Potassium 4.6, Chloride 92 L, Carbon Dioxide 38.6 H, Anion Gap 7, BUN 18, Creatinine 0.51 L, Estim Creat Clear Calc 64.27, Est GFR (MDRD) Non-Af 101, BUN/Creatinine Ratio 34.4 H, Glucose 179 H, Calcium 8.1 Rhythm Strip Rhythm Strip: Sinus Rhythm Rate: 87 Cardiology Labs/Tests 10/08/24 06:50: WBC 8.1, RBC 4.83, Hgb 13.2, Hct 41.6, MCV 86.1, MCH 27.3, MCHC 31.7 L, Plt Count 168, MPV 10.0, Immature Gran % (Auto) 0.900, Neut % (Auto) 89.1 H, Lymph % (Auto) 5.1 L, [place] % (Auto) 4.7, Eos % (Auto) 0.0, Baso % (Auto)0.2, Absolute Neuts (auto) 7.2, Nucleated RBC % 0, Sodium 138, Potassium 4.6, Chloride 92 L, Carbon Dioxide 38.6 H, Anion Gap 7, BUN 18, Creatinine 0.51 L, EstGFR (MDRD) Non-Af 101, BUN/Creatinine Ratio 34.4 H, Glucose 179 H, Calcium 8.1 Rhythm: EKG: ECHO: Stress Test: Cardiac Cath: PCI: CT Surgery: Holter monitor: EPS: PPM: CXR: Chest CT Scan: Physical Exam Narrative General?alert oriented HEENT- normal extraocular movements, normocephalic Neck supple no JVD Cardiovascular- normal S1-S2 regular, 4/6 systolic murmur Pulmonary- clear to auscultation bilaterally Abdomen- soft to palpation, normal sounds Extremities- no edema, not tender Musculoskeletal- no tenderness no swelling Neurological -alert oriented Psych -normal affect Assessment & Plan Assessment/Plan (1) Aortic valve stenosis: QUALIFIERS: Cardiac valve disease etiology: nonrheumatic Qualified Code(s): I35.0 - Nonrheumatic aortic (valve) stenosis PLAN: She has severe aortic valve stenosis SASHA 0.8 cm? that is likely why she is symptomatic when she becomes tachycardic. She will need to be seen in the valve clinic as an outpatient for consideration of surgical aortic valve replacement versus TAVR. Started this conversation with her. Given her COPD severity she may be a candidate for TAVR despite her young age. She will need to be seen in the valve clinic. (2) Afib: PLAN: Paroxysmal atrial fibrillation Had an episode of tachycardia this morning, EKG showed A-fib with RVR. Converted into normal sinus rhythm after IV metoprolol. At this point recommendlong-term anticoagulation. Will transition to Eliquis/Xarelto pending cost. Start Multaq given recurrent symptomatic episodes. She will need to be followedup by cardiology in the office. Will also need a 30-day event monitor to determine A-fib burden. . 10/08/24 1229 <Electronically signed by Michael Plasencia MD> Cosigner Signature (if applicable): CC: ~ Signed ADDENDUM by Dr. Michael Plasencia MD on 10/08/24 at 1415 Visit Charges Inpatient E&M: 76049 Subs Hosp L3 10/08/24 1415<Electronically signed by Michael Plasencia MD> Cosigner Signature (if applicable): cc: ~* Signed [facility] Work Phone: [phone]) 811-292806-15-2025 Progress note [facility] Medical Records Department [address] [place] [address] Progress Note 10/08/24 1100 MR#: [id number] Acct: [id number] Name: DENIA GONZALEZ Rep #:[id number] : 1955 69 From: Lynne Schafer MD PCP: Dr. Yoseph Fall MD Status:AD M IN Location: [place] [address] Subjective Subjective Patient seen and examined. Patient went into A-fib with RVR today with a heart rate going up to [id number] and 190s. She did complain of palpitations and some shortness of breath at time of my review. I had hoped to be able to discharge her today but in light of this A-fib with RVR decision for discharge canceled. Objective Data Objective Data Vital Signs: Vital Signs Temp Pulse Resp BP Pulse Ox O2 Del Method O2 Flow Rate 98.1 F 184 H 20 H 146/80 H 96 Nasal Cannula 2 10/08/24 08:41 10/08/24 09:11 10/08/24 08:41 10/08/24 08:41 10/08/24 08:41 10/08/24 08:41 10/08/24 08:41 FiO2 30 09/30/24 22:20 Oxygen Flow Rate (L/min) 2 Oxygen Delivery Method Nasal Cannula Weight: 157 lb 3.033 oz Body Mass Index (BMI) 26.9 Intake & Output: Intake and Output for Last 24 Hours 10/06/24 10/07/24 10/08/24 23:59 23:59 23:59 Intake Total 480 / 480 480 / 480 Output Total 700 / 700 250 / 650 400 / 400 Balance -220 / -220 230 / -170 -400 / -400 Lab / Micro Data 10/08/24 06:50 10/08/24 06:50 Labs: Laboratory Results - last 24 hr 10/08/24 06:50: WBC 8.1, RBC 4.83, Hgb 13.2, Hct 41.6, MCV 86.1, MCH 27.3, MCHC 31.7 L, RDW Std Deviation 40.7, RDW Coeff of Augustin 13.0, Plt Count 168, MPV 10.0, Immature Gran % (Auto) 0.900, Neut % (Auto) 89.1 H, Lymph % (Auto) 5.1 L, [place] %(Auto) 4.7, Eos % (Auto) 0.0, Baso % (Auto) 0.2, Absolute Neuts (auto) 7.2, Absolute Lymphs (auto) 0.41 L, Nucleated RBC % 0, Sodium 138, Potassium 4.6, Chloride 92 L, Carbon Dioxide 38.6 H, Anion Gap 7, BUN 18, Creatinine 0.51 L, Estim Creat Clear Calc 64.27, Est GFR (MDRD) Non-Af 101, BUN/Creatinine Ratio 34.4 H, Glucose 179 H, Calcium 8.1 Micro: Microbiology 09/29/24 09:15 Sputum, Expectorated/Coughed Gram Stain - Final 09/29/24 09:15 Sputum, Expectorated/Coughed Respiratory Culture - Final Stenotrophomonas maltophilia Pseudomonas aeruginosa 09/29/24 06:05 Mucosa - Nasopharyngeal Respiratory Panel (PCR) - Final 09/29/24 02:30 Mucosa - Nose SARS-CoV-2, Influenza & RSV (PCR) - Final Rhythm Strip Rhythm Strip: Sinus Rhythm Rate: 87 Physical Exam Const alert and oriented x3 Constitutional Narrative: frail General Appearance: cooperative HEENT normocephalic, head/scalp atraumatic, moist oral mucous membranes and oropharynxnormal Eyes PERRL and EOMs intact bilaterally Neck supple General: trachea midline Lymph Lymphatic: no lymphedema noted Resp Resp Narrative: mildly diminished breath sounds bibasally, mild wheezing. NO crackles. On 2 L ofoxygen by nasal canula Cardio S1 normal heart sound, S2 normal heart sound and no murmurs Cardio Narrative: afib with RVR, HR in the 170s-180s GI normal to inspection, nondistended, normoactive bowel sounds, soft to palpation,non-tender and non-distended Extremity normal capillary refill and no clubbing, cyanosis or edema General Extremity: no tenderness to palpation of joints or extremities Skin General Skin Exam: no breakdown Neuro no focal motor deficits Neuro Narrative: alert, oriented x 3, communicative, moves all extremities spontaneously Motor Exam: general weakness Psych thought process normal and cooperative Appearance: appropriate Assessment & Plan Assessment/Plan (1) Tachycardia: (2) COPD with acute exacerbation: PLAN: Plan #Acute hypoxic and hypercapnic respiratory failure due to COPD exacerbation and pneumonia * sputum cultures growing Pseudomonas * has a history of non-small cell lung cancer. * Now on p.o. levofloxacin. However since she is unable to swallow the Levaquin. Will likely DC theoral antibiotics as she completed a 7-day course of IV Levaquin. * breathing treatment with bronchodilators. Titrate oxygen to maintain sats >90% * Sputum cultures grew stenotrophomonas and Pseudomonas both sensitive to Levaquin * on 3L of oxygen by nasal canula * Also on IV Solu-Medrol. Will switch to p.o. prednisone. * # A-fib with RVR * Patient went back into tachycardia today with heart rate going as high as the 180s. EKG showed A-fib with RVR * * 2D echo done showed severe concentric left ventricular hypertrophy with EF of 70% and stage I diastolic dysfunction as well as severely calcified aortic valve with severe aortic valve stenosis and mean peak gradient of 50 mmHg as well as trivial aortic valve regurgitation. * Cardiology on board. Management as per cardiology. * per cardiology, she will need to be worked up for TAVR on outpatient basis once she follows up with cardiology on discharge. * Patient on verapamil. Per cardiology and she has converted to normal sinus rhythm will monitor for now and continue the verapamil. If this recurs she is to be placed on amiodarone drip. * Heart rate has remained stable. * On therapeutic Lovenox. She converted to normal sinus rhythm today before she can be placed on amiodarone drip. Already on verapamil. Per cardiology to place on Multaq * switch to PO eliquis. * #Benign essential hypertension * on verapamil #Anxiety and depression: On Ativan nightly and buspirone #Restless leg syndrome: On pramipexole #GERD: on PPI DVT prophylaxis: On therapeutic Lovenox. Will switch to PO eliquis. Charges/Coding Visit Charges Inpatient E&M: 46119 [facility] Hosp 10/08/24 1537 Lynne Schafer MD Cosigner Signature (if applicable): CC: ~ Signed [facility]06-15-2025 Progress note [facility] Medical Records Department [address] [place] [address] Progress Note - Cardiology 10/08/24 1058 MR#: [id number] Acct: [id number] Name: DENIA GONZALEZ Rep #:[id number] : 1955 69 From: Michael Plasencia MD PCP: Dr. Yoseph Fall MD Status:AD M IN Location: [address] Objective Data an episode of tachycardia today Vital Signs: Vital Signs Temp Pulse Resp BP Pulse Ox O2 Del Method O2 Flow Rate 98.1 F 184 H 20 H 146/80 H 96 Nasal Cannula 2 10/08/24 08:41 10/08/24 09:11 10/08/24 08:41 10/08/24 08:41 10/08/24 08:41 10/08/24 08:41 10/08/24 08:41 FiO2 30 09/30/24 22:20 Oxygen Flow Rate (L/min) 2 Oxygen Delivery Method Nasal Cannula Weight: 157 lb 3.033 oz Body Mass Index (BMI) 26.9 Intake & Output: Intake and Output for Last 24 Hours 10/06/24 10/07/24 10/08/24 23:59 23:59 23:59 Intake Total 480 / 480 480 / 480 Output Total 700 / 700 250 / 650 400 / 400 Balance -220 / -220 230 / -170 -400 / -400 Lab / Micro Data 10/08/24 06:50 10/08/24 06:50 Labs: Laboratory Results - last 24 hr 10/08/24 06:50: WBC 8.1, RBC 4.83, Hgb 13.2, Hct 41.6, MCV 86.1, MCH 27.3, MCHC 31.7 L, RDW Std Deviation 40.7, RDW Coeff of Augustin 13.0, Plt Count 168, MPV 10.0, Immature Gran % (Auto) 0.900, Neut % (Auto) 89.1 H, Lymph % (Auto) 5.1 L, [place] %(Auto) 4.7, Eos % (Auto) 0.0, Baso % (Auto) 0.2, Absolute Neuts (auto) 7.2, Absolute Lymphs (auto) 0.41 L, Nucleated RBC % 0, Sodium 138, Potassium 4.6, Chloride 92 L, Carbon Dioxide 38.6 H, Anion Gap 7, BUN 18, Creatinine 0.51 L, Estim Creat Clear Calc 64.27, Est GFR (MDRD) Non-Af 101, BUN/Creatinine Ratio 34.4 H, Glucose 179 H, Calcium 8.1 Rhythm Strip Rhythm Strip: Sinus Rhythm Rate: 87 Cardiology Labs/Tests 10/08/24 06:50: WBC 8.1, RBC 4.83, Hgb 13.2, Hct 41.6, MCV 86.1, MCH 27.3, MCHC 31.7 L, Plt Count 168, MPV 10.0, Immature Gran % (Auto) 0.900, Neut % (Auto) 89.1 H, Lymph % (Auto) 5.1 L, [place] % (Auto) 4.7, Eos % (Auto) 0.0, Baso % (Auto)0.2, Absolute Neuts (auto) 7.2, Nucleated RBC % 0, Sodium 138,Potassium 4.6, Chloride 92 L, Carbon Dioxide 38.6 H, Anion Gap 7, BUN 18, Creatinine 0.51 L, EstGFR(MDRD) Non-Af 101, BUN/Creatinine Ratio 34.4 H, Glucose 179 H, Calcium 8.1 Rhythm: EKG: ECHO: Stress Test: Cardiac Cath: PCI: CT Surgery: Holter monitor: EPS: PPM: CXR: Chest CT Scan: Physical Exam Narrative General?alert oriented HEENT- normal extraocular movements, normocephalic Neck supple no JVD Cardiovascular- normal S1-S2 regular, 4/6 systolic murmur Pulmonary- clear to auscultation bilaterally Abdomen- soft to palpation, normal sounds Extremities- no edema, not tender Musculoskeletal- no tenderness no swelling Neurological -alert oriented Psych -normal affect Assessment & Plan Assessment/Plan (1) Aortic valve stenosis: QUALIFIERS: Cardiac valve disease etiology: nonrheumatic Qualified Code(s): I35.0 - Nonrheumatic aortic (valve) stenosis PLAN: She has severe aortic valve stenosis SASHA 0.8 cm? that is likely why she is symptomatic when she becomes tachycardic. She will need to be seen in the valve clinic as an outpatient for consideration of surgical aortic valve replacement versus TAVR. Started this conversation with her. Given her COPD severity she may be a candidate for TAVR despite her young age. She will need to be seen in the valve clinic. (2) Afib: PLAN: Paroxysmal atrial fibrillation Had an episode of tachycardia this morning, EKG showed A-fib with RVR. Converted into normal sinus rhythm after IV metoprolol. At this point recommendlong-term anticoagulation. Will transition to Eliquis/Xarelto pending cost. Start Multaq given recurrent symptomatic episodes. She will need to be followedup by cardiology in the office. Will also need a 30-day event monitor to determine A- fib burden. . 10/08/24 1229 Cosigner Signature (if applicable): CC: ~ Signed ADDENDUM by Dr. Michael Plasencia MD on 10/08/24 at 1415 Visit Charges Inpatient E&M: 56644 [facility] 10/08/24 1415 Cosigner Signature (if applicable): cc: ~* Signed [facility]06-14-2025 Progress note Author Lynne Schafer [facility] Note Date/Time October 07, 2024 6:29 pm [facility] Medical Records Department [address] [place] [address] Progress Note 10/07/24 1413 MR#: [id number] Acct: [id number] Name: MONICOJESUSSheba Bhagat Rep #:[id number] : 1955 69 From: Lynne Schafer MD PCP: Dr. Yoseph Fall MD Status:AD M IN Location: [place] [address] Subjective Subjective Patient seen and examined. She had no complaints and had an uneventful night. Her tachycardia did not recur again. Objective Data Objective Data Vital Signs: Vital Signs Temp Pulse Resp BP Pulse Ox O2 Del Method O2 Flow Rate 98 F 104 H 19 H 138/75 H 96 Nasal Cannula 2 10/07/24 08:53 10/07/24 11:39 10/07/24 11:39 10/07/24 08:53 10/07/24 13:52 10/07/24 13:37 10/07/24 13:52 FiO2 30 09/30/24 22:20 Oxygen Flow Rate (L/min) 2 Oxygen Delivery Method Nasal Cannula Weight: 154 lb 12.232 oz Body Mass Index (BMI) 26.5 Intake & Output: Intake and Output for Last 24 Hours 10/05/24 10/06/24 10/07/24 23:59 23:59 23:59 Intake Total 490 / 490 480 / 480 240 / 240 Output Total 700 / 1400 700 / 700 250 / 250 Balance -210 / -910 -220 / -220 -10 / -10 Lab / Micro Data 10/07/24 03:55 10/07/24 03:55 Labs: Laboratory Results - last 24 hr 10/07/24 03:55: WBC 9.0, RBC 4.78, Hgb 13.5, Hct 41.4, MCV 86.6, MCH 28.2, MCHC 32.6, RDW Std Deviation 41.1, RDW Coeff of Augustin 13.0, Plt Count 176, MPV 9.9, Immature Gran % (Auto) 0.900, Neut % (Auto) 89.2 H, Lymph % (Auto) 4.3 L, [place] %(Auto) 5.4, Eos % (Auto) 0.0, Baso % (Auto) 0.2, Absolute Neuts (auto) 8.0 H, Absolute Lymphs (auto) 0.39 L, Nucleated RBC % 0, Sodium 137, Potassium 4.8, Chloride 93 L, Carbon Dioxide 38.2 H, Anion Gap 6, BUN 19, Creatinine 0.50 L, Estim Creat Clear Calc 63.81, Est GFR (MDRD) Non-Af 101, BUN/Creatinine Ratio 37.1 H, Glucose 192 H, Calcium 8.1, Magnesium 2.5 H Micro: Microbiology 09/29/24 09:15 Sputum, Expectorated/Coughed Gram Stain - Final 09/29/24 09:15 Sputum, Expectorated/Coughed Respiratory Culture - Final Stenotrophomonas maltophilia Pseudomonas aeruginosa 09/29/24 06:05 Mucosa - Nasopharyngeal Respiratory Panel (PCR) - Final 09/29/24 02:30 Mucosa - Nose SARS-CoV-2, Influenza & RSV (PCR) - Final Rhythm Strip Rhythm Strip: Sinus Rhythm Rate: 87 Physical Exam Const alert and oriented x3 Constitutional Narrative: frail General Appearance: cooperative HEENT normocephalic, head/scalp atraumatic, moist oral mucous membranes and oropharynxnormal Eyes PERRL and EOMs intact bilaterally Neck supple General: trachea midline Lymph Lymphatic: no lymphedema noted Resp Resp Narrative: mildly diminished breath sounds bibasally, mild wheezing. NO crackles. On 3 L ofoxygen by nasal canula Cardio regular rate, regular rhythm, S1 normal heart sound, S2 normal heart sound and no murmurs GI normal to inspection, nondistended, normoactive bowel sounds, soft to palpation,non-tender and non-distended Extremity normal capillary refill and no clubbing, cyanosis or edema General Extremity: no tenderness to palpation of joints or extremities Skin General Skin Exam: no breakdown Neuro no focal motor deficits Neuro Narrative: alert, oriented x 3, communicative, moves all extremities spontaneously Motor Exam: general weakness Psych thought process normal and cooperative Appearance: appropriate Assessment & Plan Assessment/Plan (1) Tachycardia: (2) COPD with acute exacerbation: PLAN: Plan #Acute hypoxic and hypercapnic respiratory failure due to COPD exacerbation and pneumonia * sputum cultures growing Pseudomonas * has a history of non-small cell lung cancer. * Now on p.o. levofloxacin. * breathing treatment with bronchodilators. Titrate oxygen to maintain sats >90% * Sputum cultures grew stenotrophomonas and Pseudomonas both sensitive to Levaquin * on 3L of oxygen by nasal canula * Also on IV Solu-Medrol * #Tachycardia * Patient went back into tachycardia today with heart rate going as high as the 180s. * EKG showed A-fib * 2D echo done showed severe concentric left ventricular hypertrophy with EF of 70% and stage I diastolic dysfunction as well as severely calcified aortic valve with severe aortic valve stenosis and mean peak gradient of 50 mmHg as well as trivial aortic valve regurgitation. * Cardiology on board. Management as per cardiology. * per cardiology, she will need to be worked up for TAVR on outpatient basis once she follows up with cardiology on discharge. * Patient on verapamil. Per cardiology and she has converted to normal sinus rhythm will monitor for now and continue the verapamil. If this recurs she is to be placed on amiodarone drip. * Heart rate has remained stable. * #Benign essential hypertension * on verapamil #Anxiety and depression: On Ativan nightly and buspirone #Restless leg syndrome: On pramipexole #GERD: on PPI DVT prophylaxis: On therapeutic Lovenox Disposition: Anticipate DC tomorrow by tomorrow. Charges/Coding Visit Charges Inpatient E&M: 72504 Subs Hosp L2 10/07/244 <Electronically signed by Lynne Schafer MD> Lynne Schafer MD Cosigner Signature (if applicable): CC: ~ Signed [facility] Work Phone: [phone] Progress note [facility] Medical Records Department [address] [place] [address] Progress Note 10/07/24 1413 MR#: [id number] Acct: [id number] Name: DENIA GONZALEZ Rep #:[id number] : 1955 69 From: Lynne Schafer MD PCP: Dr. Yoseph Fall MD Status:AD M IN Location: [place] [address] Subjective Subjective Patient seen and examined. She had no complaints and had an uneventful night. Her tachycardia did not recur again. Objective Data Objective Data Vital Signs: Vital Signs Temp Pulse Resp BP Pulse Ox O2 Del Method O2 Flow Rate 98 F 104 H 19 H 138/75 H 96 Nasal Cannula 2 10/07/24 08:53 10/07/24 11:39 10/07/24 11:39 10/07/24 08:53 10/07/24 13:52 10/07/24 13:37 10/07/24 13:52 FiO2 30 09/30/24 22:20 Oxygen Flow Rate (L/min) 2 Oxygen Delivery Method Nasal Cannula Weight: 154 lb 12.232 oz Body Mass Index (BMI) 26.5 Intake & Output: Intake and Output for Last 24 Hours 10/05/24 10/06/24 10/07/24 23:59 23:59 23:59 Intake Total 490 / 490 480 / 480 240 / 240 Output Total 700 / 1400 700 / 700 250 / 250 Balance -210 / -910 -220 / -220 -10 / -10 Lab / Micro Data 10/07/24 03:55 10/07/24 03:55 Labs: Laboratory Results - last 24 hr 10/07/24 03:55: WBC 9.0, RBC 4.78, Hgb 13.5, Hct 41.4, MCV 86.6, MCH 28.2, MCHC 32.6, RDW Std Deviation 41.1, RDW Coeff of Augustin 13.0, Plt Count 176, MPV 9.9, Immature Gran % (Auto) 0.900, Neut % (Auto) 89.2 H, Lymph % (Auto) 4.3 L, [place] %(Auto) 5.4, Eos % (Auto) 0.0, Baso % (Auto) 0.2, Absolute Neuts (auto) 8.0 H, Absolute Lymphs (auto) 0.39 L, Nucleated RBC % 0, Sodium 137, Potassium 4.8, Chloride 93 L, Carbon Dioxide 38.2 H, Anion Gap 6, BUN 19, Creatinine 0.50 L, Estim Creat Clear Calc 63.81,Est GFR (MDRD) Non-Af 101, BUN/Creatinine Ratio 37.1 H, Glucose 192 H, Calcium 8.1, Magnesium 2.5 H Micro: Microbiology 09/29/24 09:15 Sputum, Expectorated/Coughed Gram Stain - Final 09/29/24 09:15 Sputum, Expectorated/Coughed Respiratory Culture - Final Stenotrophomonas maltophilia Pseudomonas aeruginosa 09/29/24 06:05 Mucosa - Nasopharyngeal Respiratory Panel (PCR) - Final 09/29/24 02:30 Mucosa - Nose SARS-CoV-2, Influenza & RSV (PCR) - Final Rhythm Strip Rhythm Strip: Sinus Rhythm Rate: 87 Physical Exam Const alert and oriented x3 Constitutional Narrative: frail General Appearance: cooperative HEENT normocephalic, head/scalp atraumatic, moist oral mucous membranes and oropharynxnormal Eyes PERRL and EOMs intact bilaterally Neck supple General: trachea midline Lymph Lymphatic: no lymphedema noted Resp Resp Narrative: mildly diminished breath sounds bibasally, mild wheezing. NO crackles. On 3 L ofoxygen by nasal canula Cardio regular rate, regular rhythm, S1 normal heart sound, S2 normal heart sound and no murmurs GI normal to inspection, nondistended, normoactive bowel sounds, soft to palpation,non-tender and non-distended Extremity normal capillary refill and no clubbing, cyanosis or edema General Extremity: no tenderness to palpation of joints or extremities Skin General Skin Exam: no breakdown Neuro no focal motor deficits Neuro Narrative: alert, oriented x 3, communicative, moves all extremities spontaneously Motor Exam: general weakness Psych thought process normal and cooperative Appearance: appropriate Assessment & Plan Assessment/Plan (1) Tachycardia: (2) COPD with acute exacerbation: PLAN: Plan #Acute hypoxic and hypercapnic respiratory failure due to COPD exacerbation and pneumonia * sputum cultures growing Pseudomonas * has a history of non-small cell lung cancer. * Now on p.o. levofloxacin. * breathing treatment with bronchodilators. Titrate oxygen to maintain sats >90% * Sputum cultures grew stenotrophomonas and Pseudomonas both sensitive to Levaquin * on 3L of oxygen by nasal canula * Also on IV Solu-Medrol * #Tachycardia * Patient went back into tachycardia today with heart rate going as high as the 180s. * EKG showed A-fib * 2D echo done showed severe concentric left ventricular hypertrophy with EF of 70% and stage I diastolic dysfunction as well as severely calcified aortic valve with severe aortic valve stenosis and mean peak gradient of 50 mmHg as well as trivial aortic valve regurgitation. * Cardiology on board. Management as per cardiology. * per cardiology, she will need to be worked up for TAVR on outpatient basis once she follows up with cardiology on discharge. * Patient on verapamil. Per cardiology and she has converted to normal sinus rhythm will monitor for now and continue the verapamil. If this recurs she is to be placed on amiodarone drip. * Heart rate has remained stable. * #Benign essential hypertension * on verapamil #Anxiety and depression: On Ativan nightly and buspirone #Restless leg syndrome: On pramipexole #GERD: on PPI DVT prophylaxis: On therapeutic Lovenox Disposition: Anticipate DC tomorrow by tomorrow. Charges/Coding Visit Charges Inpatient E&M: 79846 Subs Hosp L2 10/07/24 9340 Lynne Schafer MD Cosigner Signature (if applicable): CC: ~ Signed [facility]06-14-2025 Progress note Author Michael Plasencia [facility] Note Date/Time October 07, 2024 3:50 pm [facility] Medical Records Department [address] [place] [address] Progress Note - Cardiology 10/07/24 1059 MR#: [id number] Acct: [id number] Name: DENIA GONZALEZ Rep #:[id number] : 1955 69 From: Michael Plasencia MD PCP: Dr. Yoseph Fall MD Status:AD M IN Location: [place] [address] Objective Data No further episodes overnight Vital Signs: Vital Signs Temp Pulse Resp BP Pulse Ox O2 Del Method O2 Flow Rate 98 F 93 16 138/75 H 98 Nasal Cannula 3 10/07/24 08:53 10/07/24 08:53 10/07/24 08:53 10/07/24 08:53 10/07/24 08:53 10/07/24 08:53 10/07/24 08:53 FiO2 30 09/30/24 22:20 Oxygen Flow Rate (L/min) 3 Oxygen Delivery Method Nasal Cannula Weight: 154 lb 12.232 oz Body Mass Index (BMI) 26.5 Intake & Output: Intake and Output for Last 24 Hours 10/05/24 10/06/24 10/07/24 23:59 23:59 23:59 Intake Total 490 / 490 480 / 480 Output Total 700 / 1400 700 / 700 250 / 250 Balance -210 / -910 -220 / -220 -250 / -250 Lab / Micro Data 10/07/24 03:55 10/07/24 03:55 Labs: Laboratory Results - last 24 hr 10/07/24 03:55: WBC 9.0, RBC 4.78, Hgb 13.5, Hct 41.4, MCV 86.6, MCH 28.2, MCHC 32.6, RDW Std Deviation 41.1, RDW Coeff of Augustin 13.0, Plt Count 176, MPV 9.9, Immature Gran % (Auto) 0.900, Neut % (Auto) 89.2 H, Lymph % (Auto) 4.3 L, [place] %(Auto) 5.4, Eos % (Auto) 0.0, Baso % (Auto) 0.2, Absolute Neuts (auto) 8.0 H, Absolute Lymphs (auto) 0.39 L, Nucleated RBC % 0, Sodium 137, Potassium 4.8, Chloride 93 L, Carbon Dioxide 38.2 H, Anion Gap 6, BUN 19, Creatinine 0.50 L, Estim Creat Clear Calc 63.81, Est GFR (MDRD) Non-Af 101, BUN/Creatinine Ratio 37.1 H, Glucose 192 H, Calcium 8.1, Magnesium 2.5 H Rhythm Strip Rhythm Strip: Sinus Rhythm Rate: 87 Cardiology Labs/Tests 10/07/24 03:55: WBC 9.0, RBC 4.78, Hgb 13.5, Hct 41.4, MCV 86.6, MCH 28.2, MCHC 32.6, Plt Count 176, MPV 9.9, Immature Gran % (Auto) 0.900, Neut % (Auto) 89.2 H, Lymph % (Auto) 4.3 L, [place] % (Auto) 5.4, Eos % (Auto) 0.0, Baso % (Auto) 0.2, Absolute Neuts (auto) 8.0 H, Nucleated RBC % 0, Sodium 137, Potassium 4.8, Chloride 93 L, Carbon Dioxide 38.2 H, Anion Gap 6, BUN 19, Creatinine 0.50 L, EstGFR (MDRD) Non-Af 101, BUN/Creatinine Ratio 37.1 H, Glucose 192 H, Calcium 8.1, Magnesium 2.5 H Rhythm: EKG: ECHO: Stress Test: Cardiac Cath: PCI: CT Surgery: Holter monitor: EPS: PPM: CXR: Chest CT Scan: Physical Exam Narrative General?alert oriented HEENT- normal extraocular movements Neck supple no JVD Cardiovascular- normal S1-S2 regular, 4/6 systolic murmur Pulmonary- clear to auscultation bilaterally Abdomen- soft to palpation, normal sounds Extremities- no edema Musculoskeletal- no tenderness no swelling Neurological -alert oriented Psych -normal affect Assessment & Plan Assessment/Plan (1) Aortic valve stenosis: QUALIFIERS: Cardiac valve disease etiology: nonrheumatic Qualified Code(s): I35.0 - Nonrheumatic aortic (valve) stenosis PLAN: She has severe aortic valve stenosis SASHA 0.8 cm? that is likely why she is symptomatic when she becomes tachycardic. She will need to be seen in the valve clinic as an outpatient for consideration of surgical aortic valve replacement versus TAVR. Started this conversation with her. Given her COPD severity she may be a candidate for TAVR despite her young age. She will need to be seen in the valve clinic. (2) Tachycardia: PLAN: No further episodes overnight. Unclear if this is atrial flutter versus sinus tachycardia versus MAT. If she has a recurrent episode we will consider restarting amiodarone gtt with the plan to transition to oral Multaq and 30-day event monitor for further evaluation. If it turns out to be atrial flutter she will need penitentiary anticoagulation for stroke prevention 10/07/24 1338 <Electronically signed by Michael Plasencia MD> Cosigner Signature (if applicable): CC: ~ Signed ADDENDUM by Dr. Michael Plasencia MD on 10/07/24 at 1550 Visit Charges Inpatient E&M: 40797 Subs Hosp L3 10/07/24 1550<Electronically signed by Michael Plasencia MD> Cosigner Signature (if applicable): cc: ~* Signed [facility] Work Phone: [phone]) [phone] Progress note [facility] Medical Records Department [address] [place] [address] Progress Note - Cardiology 10/07/24 1059 MR#: [id number] Acct: [id number] Name: DENIA GONZALEZ Rep #:[id number] : 1955 69 From: Michael Plasencia MD PCP: Dr. Yoseph Fall MD Status:AD M IN Location: [place] [address] 1 Objective Data No further episodes overnight Vital Signs: Vital Signs Temp Pulse Resp BP Pulse Ox O2 Del Method O2 Flow Rate 98 F 93 16 138/75 H 98 Nasal Cannula 3 10/07/24 08:53 10/07/24 08:53 10/07/24 08:53 10/07/24 08:53 10/07/24 08:53 10/07/24 08:53 10/07/24 08:53 FiO2 30 09/30/24 22:20 Oxygen Flow Rate (L/min) 3 Oxygen Delivery Method Nasal Cannula Weight: 154 lb 12.232 oz Body Mass Index (BMI) 26.5 Intake & Output: Intake and Output for Last 24 Hours 10/05/24 10/06/24 10/07/24 23:59 23:59 23:59 Intake Total 490 / 490 480 / 480 Output Total 700 / 1400 700 / 700 250 / 250 Balance -210 / -910 -220 / -220 -250 / -250 Lab / Micro Data 10/07/24 03:55 10/07/24 03:55 Labs: Laboratory Results - last 24 hr 10/07/24 03:55: WBC 9.0, RBC 4.78, Hgb 13.5, Hct 41.4, MCV 86.6, MCH 28.2, MCHC 32.6, RDW Std Deviation 41.1, RDW Coeff of Augustin 13.0, Plt Count 176, MPV 9.9, Immature Gran % (Auto) 0.900, Neut % (Auto) 89.2 H, Lymph % (Auto) 4.3 L, [place] %(Auto) 5.4, Eos % (Auto) 0.0, Baso % (Auto) 0.2, Absolute Neuts (auto) 8.0 H, Absolute Lymphs (auto) 0.39 L, Nucleated RBC % 0, Sodium 137, Potassium 4.8, Chloride 93 L, Carbon Dioxide 38.2 H, Anion Gap 6, BUN 19, Creatinine 0.50 L, Estim Creat Clear Calc 63.81,Est GFR (MDRD) Non-Af 101, BUN/Creatinine Ratio 37.1 H, Glucose 192 H, Calcium 8.1, Magnesium 2.5 H Rhythm Strip Rhythm Strip: Sinus Rhythm Rate: 87 Cardiology Labs/Tests 10/07/24 03:55: WBC 9.0, RBC 4.78, Hgb 13.5, Hct 41.4, MCV 86.6, MCH 28.2, MCHC 32.6, Plt Count 176, MPV 9.9, Immature Gran % (Auto) 0.900, Neut % (Auto) 89.2 H, Lymph % (Auto) 4.3 L, [place] % (Auto) 5.4, Eos % (Auto) 0.0, Baso % (Auto) 0.2, Absolute Neuts (auto) 8.0 H, Nucleated RBC % 0, Sodium 137,Potassium 4.8, Chloride 93 L, Carbon Dioxide 38.2 H, Anion Gap 6, BUN 19, Creatinine 0.50 L, EstGFR(MDRD) Non-Af 101, BUN/Creatinine Ratio 37.1 H, Glucose 192 H, Calcium 8.1, Magnesium 2.5 H Rhythm: EKG: ECHO: Stress Test: Cardiac Cath: PCI: CT Surgery: Holter monitor: EPS: PPM: CXR: Chest CT Scan: Physical Exam Narrative General?alert oriented HEENT- normal extraocular movements Neck supple no JVD Cardiovascular- normal S1-S2 regular, 4/6 systolic murmur Pulmonary- clear to auscultation bilaterally Abdomen- soft to palpation, normal sounds Extremities- no edema Musculoskeletal- no tenderness no swelling Neurological -alert oriented Psych -normal affect Assessment & Plan Assessment/Plan (1) Aortic valve stenosis: QUALIFIERS: Cardiac valve disease etiology: nonrheumatic Qualified Code(s): I35.0 - Nonrheumatic aortic (valve) stenosis PLAN: She has severe aortic valve stenosis SASHA 0.8 cm? that is likely why she is symptomatic when she becomes tachycardic. She will need to be seen in the valve clinic as an outpatient for consideration of surgical aortic valve replacement versus TAVR. Started this conversation with her. Given her COPD severity she may be a candidate for TAVR despite her young age. She will need to be seen in the valve clinic. (2) Tachycardia: PLAN: No further episodes overnight. Unclear if this is atrial flutter versus sinus tachycardia versus MAT. If she has a recurrent episode we will consider restarting amiodarone gtt with the plan to transition to oral Multaq and 30-day event monitor for further evaluation. If it turns out to be atrial flutter she will need terminal block assembler anticoagulation for stroke prevention 10/07/24 1338 Cosigner Signature (if applicable): CC: ~ Signed ADDENDUM by Dr. Michael Plasencia MD on 10/07/24 at 1550 Visit Charges Inpatient E&M: 94013 [facility] Hosp L3 10/07/24 1550 Cosigner Signature (if applicable): cc: ~* Signed [facility]06-13-2025 Progress note Author Michael Plasencia [facility] Note Date/Time October 06, 2024 9:11 pm [facility] Medical Records Department [address] [place] [address] Progress Note - Cardiology 10/06/24 1422 MR#: [id number] Acct: [id number] Name: DENIA GONZALEZ Rep #:[id number] : 1955 69 From: Michael Plasencia MD PCP: Dr. Yoseph Fall MD Status:AD M IN Location: [place] [address] Subjective Subjective Reports palpitations with these episodes. Objective Data Vital Signs: Vital Signs Temp Pulse Resp BP Pulse Ox O2 Del Method O2 Flow Rate 98.4 F 94 18 130/69 H 96 Nasal Cannula 3 10/06/24 14:15 10/06/24 13:41 10/06/24 11:08 10/06/24 13:41 10/06/24 10:37 10/06/24 14:00 10/06/24 14:00 FiO2 30 09/30/24 22:20 Oxygen Flow Rate (L/min) 3 Oxygen Delivery Method Nasal Cannula Weight: 154 lb 8.705 oz Body Mass Index (BMI) 26.5 Intake & Output: Intake and Output for Last 24 Hours 10/04/24 10/05/24 10/06/24 23:59 23:59 23:59 Intake Total 1030 / 1030 490 / 490 480 / 480 Output Total 700 / 700 700 / 1400 700 / 700 Balance 330 / 330 -210 / -910 -220 / -220 Lab / Micro Data 10/06/24 04:35 10/06/24 04:35 Labs: Laboratory Results - last 24 hr 10/06/24 04:35: WBC 9.7, RBC 5.13, Hgb 14.2, Hct 43.5, MCV 84.8, MCH 27.7, MCHC 32.6, RDW Std Deviation 40.3, RDW Coeff of Augustin 13.0, Plt Count 176, MPV 10.2, Immature Gran % (Auto) 0.800, Neut % (Auto) 90.6 H, Lymph % (Auto) 4.6 L, [place] %(Auto) 3.9, Eos % (Auto) 0.0, Baso % (Auto) 0.1, Absolute Neuts (auto) 8.7 H, Absolute Lymphs (auto) 0.44 L, Nucleated RBC % 0, Sodium 137, Potassium 4.5, Chloride 94 L, Carbon Dioxide 36.3 H, Anion Gap 7, BUN 20 H, Creatinine 0.45 L, Estim Creat Clear Calc 63.77, Est GFR (MDRD) Non-Af 104, BUN/Creatinine Ratio 43.8 H, Glucose 168 H, Calcium 8.3 Rhythm Strip Rhythm Strip: Sinus Rhythm Rate: 87 Cardiology Labs/Tests 10/06/24 04:35: WBC 9.7, RBC 5.13, Hgb 14.2, Hct 43.5, MCV 84.8, MCH 27.7, MCHC 32.6, Plt Count 176, MPV 10.2, Immature Gran % (Auto) 0.800, Neut % (Auto) 90.6 H, Lymph % (Auto) 4.6 L, [place] % (Auto) 3.9, Eos % (Auto) 0.0, Baso % (Auto) 0.1,Absolute Neuts (auto) 8.7 H, Nucleated RBC % 0, Sodium 137, Potassium 4.5, Chloride 94 L, Carbon Dioxide 36.3 H, Anion Gap 7, BUN 20 H, Creatinine 0.45 L, Est GFR (MDRD) Non-Af 104, BUN/Creatinine Ratio 43.8 H, Glucose 168 H, Calcium 8.3 Rhythm: EKG: ECHO: Stress Test: Cardiac Cath: PCI: CT Surgery: Holter monitor: EPS: PPM: CXR: Chest CT Scan: Physical Exam Narrative General?alert oriented HEENT- normal extraocular movements Neck supple no JVD Cardiovascular- normal S1-S2, no murmurs Pulmonary- clear to auscultation bilaterally Abdomen- soft to palpation, normal sounds Extremities- no edema Musculoskeletal- no tenderness no swelling Neurological -alert oriented Psych -normal affect Assessment & Plan Assessment/Plan (1) Aortic valve stenosis: QUALIFIERS: Cardiac valve disease etiology: nonrheumatic Qualified Code(s): I35.0 - Nonrheumatic aortic (valve) stenosis PLAN: She has severe aortic valve stenosis SASHA 0.8 cm? that is likely why she is symptomatic when she becomes tachycardic. She will need to be seen in the valve clinic as an outpatient for consideration of surgical aortic valve replacement versus TAVR. (2) Tachycardia: PLAN: Unclear if this is atrial flutter versus sinus tachycardia versus MAT. Ifshe has a recurrent episode we will consider restarting amiodarone gtt with the plan to transition to oral Multaq and 30-day event monitor for further evaluation. If it turns out to be atrial flutter she will need anticoagulation for stroke evaluation. Charges/Coding Visit Charges Inpatient E&M: 39517 Subs Hosp L3 10/06/242108 <Electronically signed by Michael Plasencia MD> Cosigner Signature (if applicable): CC: ~ Signed ADDENDUM by Dr. Michael Plasencia MD on 10/06/24 at 2111 Addendum If it turns out to be atrial flutter she will need anticoagulation for stroke prevention 10/06/242110<Electronically signed by Michael Plasencia MD> Cosigner Signature (if applicable): cc: ~* Signed [facility] Work Phone: [phone] Progress note [facility] Medical Records Department [address] [place] [address] Progress Note - Cardiology 10/06/24 1422 MR#: [id number] Acct: [id number] Name: DENIA GONZALEZ Rep #:[id number] : 1955 69 From: Michael Plasencia MD PCP: Dr. Yoseph Fall MD Status:AD M IN Location: [place] [address] Subjective Subjective Reports palpitations with these episodes. Objective Data Vital Signs: Vital Signs Temp Pulse Resp BP Pulse Ox O2 Del Method O2 Flow Rate 98.4 F 94 18 130/69 H 96 Nasal Cannula 3 10/06/24 14:15 10/06/24 13:41 10/06/24 11:08 10/06/24 13:41 10/06/24 10:37 10/06/24 14:00 10/06/24 14:00 FiO2 30 09/30/24 22:20 Oxygen Flow Rate (L/min) 3 Oxygen Delivery Method Nasal Cannula Weight: 154 lb 8.705 oz Body Mass Index (BMI) 26.5 Intake & Output: Intake and Output for Last 24 Hours 10/04/24 10/05/24 10/06/24 23:59 23:59 23:59 Intake Total 1030 / 1030 490 / 490 480 / 480 Output Total 700 / 700 700 / 1400 700 / 700 Balance 330 / 330 -210 / -910 -220 / -220 Lab / Micro Data 10/06/24 04:35 10/06/24 04:35 Labs: Laboratory Results - last 24 hr 10/06/24 04:35: WBC 9.7, RBC 5.13, Hgb 14.2, Hct 43.5, MCV 84.8, MCH 27.7, MCHC 32.6, RDW Std Deviation 40.3, RDW Coeff of Augustin 13.0, Plt Count 176, MPV 10.2, Immature Gran % (Auto) 0.800, Neut % (Auto) 90.6 H, Lymph % (Auto) 4.6 L, [place] %(Auto) 3.9, Eos % (Auto) 0.0, Baso % (Auto) 0.1, Absolute Neuts (auto) 8.7 H, Absolute Lymphs (auto) 0.44 L, Nucleated RBC % 0, Sodium 137, Potassium 4.5, Chloride 94 L, Carbon Dioxide 36.3 H, Anion Gap 7, BUN 20 H, Creatinine 0.45 L, Estim Creat Clear Calc 63.77, Est GFR (MDRD) Non-Af 104, BUN/Creatinine Ratio 43.8 H, Glucose 168 H, Calcium 8.3 Rhythm Strip Rhythm Strip: Sinus Rhythm Rate: 87 Cardiology Labs/Tests 10/06/24 04:35: WBC 9.7, RBC 5.13, Hgb 14.2, Hct 43.5, MCV 84.8, MCH 27.7, MCHC 32.6, Plt Count 176, MPV 10.2, Immature Gran % (Auto) 0.800, Neut % (Auto) 90.6 H, Lymph % (Auto) 4.6 L, [place] % (Auto) 3.9, Eos % (Auto) 0.0, Baso % (Auto) 0.1,Absolute Neuts (auto) 8.7 H, Nucleated RBC % 0, Sodium 137,Potassium 4.5, Chloride 94 L, Carbon Dioxide 36.3 H, Anion Gap 7, BUN 20 H, Creatinine 0.45 L, Est GFR (MDRD) Non-Af 104, BUN/Creatinine Ratio 43.8 H, Glucose 168 H, Calcium 8.3 Rhythm: EKG: ECHO: Stress Test: Cardiac Cath: PCI: CT Surgery: Holter monitor: EPS: PPM: CXR: Chest CT Scan: Physical Exam Narrative General?alert oriented HEENT- normal extraocular movements Neck supple no JVD Cardiovascular- normal S1-S2, no murmurs Pulmonary- clear to auscultation bilaterally Abdomen- soft to palpation, normal sounds Extremities- no edema Musculoskeletal- no tenderness no swelling Neurological -alert oriented Psych -normal affect Assessment & Plan Assessment/Plan (1) Aortic valve stenosis: QUALIFIERS: Cardiac valve disease etiology: nonrheumatic Qualified Code(s): I35.0 - Nonrheumatic aortic (valve) stenosis PLAN: She has severe aortic valve stenosis SASHA 0.8 cm? that is likely why she is symptomatic when she becomes tachycardic. She will need to be seen in the valve clinic as an outpatient for consideration of surgical aortic valve replacement versus TAVR. (2) Tachycardia: PLAN: Unclear if this is atrial flutter versus sinus tachycardia versus MAT. Ifshe has a recurrent episode we will consider restarting amiodarone gtt with the plan to transition to oral Multaq and 30-day event monitor for further evaluation. If it turns out to be atrial flutter she will need anticoagulation for stroke evaluation. Charges/Coding Visit Charges Inpatient E&M: 24594 [facility] Hosp 10/06/242108 Cosigner Signature (if applicable): CC: ~ Signed ADDENDUM by Dr. Michael Plasencia MD on 10/06/24 at 2111 Addendum If it turns out to be atrial flutter she will need anticoagulation for stroke prevention 10/06/242110 Cosigner Signature (if applicable): cc: ~* Signed [facility]06-13-2025 Progress note Author Lynne Schafer [facility] Note Date/Time October 06, 2024 5:23 pm [facility] Medical Records Department [address] [place] [address] Progress Note 10/06/24 1720 MR#: [id number] Acct: [id number] Name: DENIA GONZALEZ Rep #:[id number] : 1955 69 From: Lynne Schafer MD PCP: Dr. Yoseph Fall MD Status:AD M IN Location: [place] [address]- Subjective Subjective Patient seen and examined today. She was feeling better and had no complaints. She was on 2 L of oxygen. I had proposed discharge today but she said she wanted 1 more day to work with therapy. Later in the day patient's heart rate went high into the 160s and 170s but subsequently converted spontaneously to normal sinus rhythm. EKG done showed questionable A-fib. She was seen with hernurse at the bedside. Objective Data Objective Data Vital Signs: Vital Signs Temp Pulse Resp BP Pulse Ox O2 Del Method O2 Flow Rate 98.4 F 100 20 H 130/69 H 96 Nasal Cannula 3 10/06/24 14:15 10/06/24 17:13 10/06/24 17:13 10/06/24 13:41 10/06/24 10:37 10/06/24 14:00 10/06/24 14:00 FiO2 30 09/30/24 22:20 Oxygen Flow Rate (L/min) 3 Oxygen Delivery Method Nasal Cannula Weight: 154 lb 8.705 oz Body Mass Index (BMI) 26.5 Intake & Output: Intake and Output for Last 24 Hours 10/04/24 10/05/24 10/06/24 23:59 23:59 23:59 Intake Total 1030 / 1030 490 / 490 480 / 480 Output Total 700 / 700 700 / 1400 700 / 700 Balance 330 / 330 -210 / -910 -220 / -220 Lab / Micro Data 10/06/24 04:35 10/06/24 04:35 Labs: Laboratory Results - last 24 hr 10/06/24 04:35: WBC 9.7, RBC 5.13, Hgb 14.2, Hct 43.5, MCV 84.8, MCH 27.7, MCHC 32.6, RDW Std Deviation 40.3, RDW Coeff of Augustin 13.0, Plt Count 176, MPV 10.2, Immature Gran % (Auto) 0.800, Neut % (Auto) 90.6 H, Lymph % (Auto) 4.6 L, [place] %(Auto) 3.9, Eos % (Auto) 0.0, Baso % (Auto) 0.1, Absolute Neuts (auto) 8.7 H, Absolute Lymphs (auto) 0.44 L, Nucleated RBC % 0, Sodium 137, Potassium 4.5, Chloride 94 L, Carbon Dioxide 36.3 H, Anion Gap 7, BUN 20 H, Creatinine 0.45 L, Estim Creat Clear Calc 63.77, Est GFR (MDRD) Non-Af 104, BUN/Creatinine Ratio 43.8 H, Glucose 168 H, Calcium 8.3 Micro: Microbiology 09/29/24 09:15 Sputum, Expectorated/Coughed Gram Stain - Final 09/29/24 09:15 Sputum, Expectorated/Coughed Respiratory Culture - Final Stenotrophomonas maltophilia Pseudomonas aeruginosa 09/29/24 06:05 Mucosa - Nasopharyngeal Respiratory Panel (PCR) - Final 09/29/24 02:30 Mucosa - Nose SARS-CoV-2, Influenza & RSV (PCR) - Final Rhythm Strip Rhythm Strip: Sinus Rhythm Rate: 87 Physical Exam Const alert and oriented x3 Constitutional Narrative: frail General Appearance: cooperative HEENT normocephalic, head/scalp atraumatic, moist oral mucous membranes and oropharynxnormal Eyes PERRL and EOMs intact bilaterally Neck supple General: trachea midline Lymph Lymphatic: no lymphedema noted Resp Resp Narrative: mildly diminished breath sounds bibasally, mild wheezing. NO crackles. On 3 L ofoxygen by nasal canula Cardio regular rate, regular rhythm, S1 normal heart sound, S2 normal heart sound and no murmurs Cardio Narrative: m heart rate went up into the 170s and 180s but converted to normal sinus rhythmspontaneously. GI normal to inspection, nondistended, normoactive bowel sounds, soft to palpation,non-tender and non-distended Extremity normal capillary refill and no clubbing, cyanosis or edema General Extremity: no tenderness to palpation of joints or extremities Skin General Skin Exam: no breakdown Neuro no focal motor deficits Neuro Narrative: alert, oriented x 3, communicative, moves all extremities spontaneously Motor Exam: general weakness Psych thought process normal and cooperative Appearance: appropriate Assessment & Plan Assessment/Plan (1) Tachycardia: (2) COPD with acute exacerbation: PLAN: Plan #Acute hypoxic and hypercapnic respiratory failure due to COPD exacerbation and pneumonia * sputum cultures growing Pseudomonas * has a history of non-small cell lung cancer. * on IV levaquin; switch to p.o. Levaquin today. * breathing treatment with bronchodilators. Titrate oxygen to maintain sats >90% * Sputum cultures grew stenotrophomonas and Pseudomonas both sensitive to Levaquin * on 3L of oxygen by nasal canula * Also on IV Solu-Medrol * #Tachycardia * Patient went back into tachycardia today with heart rate going as high as the 180s. * EKG showed A-fib * 2D echo done showed severe concentric left ventricular hypertrophy with EF of 70% and stage I diastolic dysfunction as well as severely calcified aortic valve with severe aortic valve stenosis and mean peak gradient of 50 mmHg as well as trivial aortic valve regurgitation. * Cardiology on board. Management as per cardiology. * per cardiology, she will need to be worked up for TAVR on outpatient basis once she follows up with cardiology on discharge. * Patient on verapamil. Cardiology asked to see her again today. Per cardiology and she has converted to normal sinus rhythm will monitor for now and continue the verapamil. If this recurs she is to be placed on amiodarone drip. * #Benign essential hypertension * on verapamil #Anxiety and depression: On Ativan nightly and buspirone #Restless leg syndrome: On pramipexole #GERD: on PPI DVT prophylaxis: On therapeutic Lovenox Charges/Coding Visit Charges Inpatient E&M: 80076 Subs Hosp L2 10/06/24 1723 <Electronically signed by Lynne Schafer MD> Lynne Schafer MD Cosigner Signature (if applicable): CC: ~ Signed [facility] Work Phone: [phone] Progress note [facility] Medical Records Department [address] [place] [address] Progress Note 10/06/24 1720 MR#: [id number] Acct: [id number] Name: DENIA GONZALEZ Rep #:[id number] : 1955 69 From: Lynne Schafer MD PCP: Dr. Yoseph Fall MD Status:AD M IN Location: [place] [address] Subjective Subjective Patient seen and examined today. She was feeling better and had no complaints. She was on 2 L of oxygen. I had proposed discharge today but she said she wanted 1 more day to work with therapy. Later in the day patient's heart rate went high into the 160s and 170s but subsequently converted spontaneously to normal sinus rhythm. EKG done showed questionable A-fib. [facility]. Objective Data Objective Data Vital Signs: Vital Signs Temp Pulse Resp BP Pulse Ox O2 Del Method O2 Flow Rate 98.4 F 100 20 H 130/69 H 96 Nasal Cannula 3 10/06/24 14:15 10/06/24 17:13 10/06/24 17:13 10/06/24 13:41 10/06/24 10:37 10/06/24 14:00 10/06/24 14:00 FiO2 30 09/30/24 22:20 Oxygen Flow Rate (L/min) 3 Oxygen Delivery Method Nasal Cannula Weight: 154 lb 8.705 oz Body Mass Index (BMI) 26.5 Intake & Output: Intake and Output for Last 24 Hours 10/04/24 10/05/24 10/06/24 23:59 23:59 23:59 Intake Total 1030 / 1030 490 / 490 480 / 480 Output Total 700 / 700 700 / 1400 700 / 700 Balance 330 / 330 -210 / -910 -220 / -220 Lab / Micro Data 10/06/24 04:35 10/06/24 04:35 Labs: Laboratory Results - last 24 hr 10/06/24 04:35: WBC 9.7, RBC 5.13, Hgb 14.2, Hct 43.5, MCV 84.8, MCH 27.7, MCHC 32.6, RDW Std Deviation 40.3, RDW Coeff of Augustin 13.0, Plt Count 176, MPV 10.2, Immature Gran % (Auto) 0.800, Neut % (Auto) 90.6 H, Lymph % (Auto) 4.6 L, [place] %(Auto) 3.9, Eos % (Auto) 0.0, Baso % (Auto) 0.1, Absolute Neuts (auto) 8.7 H, Absolute Lymphs (auto) 0.44 L, Nucleated RBC % 0, Sodium 137, Potassium 4.5, Chloride 94 L, Carbon Dioxide 36.3 H, Anion Gap 7, BUN 20 H, Creatinine 0.45 L, Estim Creat Clear Calc 63.77, Est GFR (MDRD) Non-Af 104, BUN/Creatinine Ratio 43.8 H, Glucose 168 H, Calcium 8.3 Micro: Microbiology 09/29/24 09:15 Sputum, Expectorated/Coughed Gram Stain - Final 09/29/24 09:15 Sputum, Expectorated/Coughed Respiratory Culture - Final Stenotrophomonas maltophilia Pseudomonas aeruginosa 09/29/24 06:05 Mucosa - Nasopharyngeal Respiratory Panel (PCR) - Final 09/29/24 02:30 Mucosa - Nose SARS-CoV-2, Influenza & RSV (PCR) - Final Rhythm Strip Rhythm Strip: Sinus Rhythm Rate: 87 Physical Exam Const alert and oriented x3 Constitutional Narrative: frail General Appearance: cooperative HEENT normocephalic, head/scalp atraumatic, moist oral mucous membranes and oropharynxnormal Eyes PERRL and EOMs intact bilaterally Neck supple General: trachea midline Lymph Lymphatic: no lymphedema noted Resp Resp Narrative: mildly diminished breath sounds bibasally, mild wheezing. NO crackles. On 3 L ofoxygen by nasal canula Cardio regular rate, regular rhythm, S1 normal heart sound, S2 normal heart sound and no murmurs Cardio Narrative: m heart rate went up into the 170s and 180s but converted to normal sinus rhythmspontaneously. GI normal to inspection, nondistended, normoactive bowel sounds, soft to palpation,non-tender and non-distended Extremity normal capillary refill and no clubbing, cyanosis or edema General Extremity: no tenderness to palpation of joints or extremities Skin General Skin Exam: no breakdown Neuro no focal motor deficits Neuro Narrative: alert, oriented x 3, communicative, moves all extremities spontaneously Motor Exam: general weakness Psych thought process normal and cooperative Appearance: appropriate Assessment & Plan Assessment/Plan (1) Tachycardia: (2) COPD with acute exacerbation: PLAN: Plan #Acute hypoxic and hypercapnic respiratory failure due to COPD exacerbation and pneumonia * sputum cultures growing Pseudomonas * has a history of non-small cell lung cancer. * on IV levaquin; switch to p.o. Levaquin today. * breathing treatment with bronchodilators. Titrate oxygen to maintain sats >90% * Sputum cultures grew stenotrophomonas and Pseudomonas both sensitive to Levaquin * on 3L of oxygen by nasal canula * Also on IV Solu-Medrol * #Tachycardia * Patient went back into tachycardia today with heart rate going as high as the 180s. * EKG showed A-fib * 2D echo done showed severe concentric left ventricular hypertrophy with EF of 70% and stage I diastolic dysfunction as well as severely calcified aortic valve with severe aortic valve stenosis and mean peak gradient of 50 mmHg as well as trivial aortic valve regurgitation. * Cardiology on board. Management as per cardiology. * per cardiology, she will need to be worked up for TAVR on outpatient basis once she follows up with cardiology on discharge. * Patient on verapamil. Cardiology asked to see her again today. Per cardiology and she has converted to normal sinus rhythm will monitor for now and continue the verapamil. If this recurs she is to be placed on amiodarone drip. * #Benign essential hypertension * on verapamil #Anxiety and depression: On Ativan nightly and buspirone #Restless leg syndrome: On pramipexole #GERD: on PPI DVT prophylaxis: On therapeutic Lovenox Charges/Coding Visit Charges Inpatient E&M: 00803 Subs Hosp L2 10/06/24 1723 Lynne Schafer MD Cosigner Signature (if applicable): CC: ~ Signed [facility]06-12-2025 Progress note Author Lynne [facility] Note Date/Time October 05, 2024 6:28 pm [facility] Medical Records Department [address] [place] [address] Progress Note 10/05/24 1233 MR#: [id number] Acct: [id number] Name: DENIA GONZALEZ Rep #:[id number] : 1955 69 From: Lynne Schafer MD PCP: Dr. Yoseph Fall MD Status:AD M IN Location: [place] [address] Subjective Subjective Patient seen and examined. She was seen with her and is by her bedside. She isfeeling much better today. She is down to 2L of oxygen. She feels her breathing has improved. Review of systems is otherwise negative today. Objective Data Objective Data Vital Signs: Vital Signs Temp Pulse Resp BP Pulse Ox O2 Del Method O2 Flow Rate 97.7 F L 81 20 H 125/67 H 94 Nasal Cannula 2 10/05/24 11:30 10/05/24 11:30 10/05/24 11:30 10/05/24 11:30 10/05/24 11:30 10/05/24 11:30 10/05/24 11:30 FiO2 30 09/30/24 22:20 Oxygen Flow Rate (L/min) 2 Oxygen Delivery Method Nasal Cannula Weight: 157 lb 10.088 oz Body Mass Index (BMI) 27.0 Intake & Output: Intake and Output for Last 24 Hours 10/03/24 10/04/24 10/05/24 23:59 23:59 23:59 Intake Total 670.28 / 670.28 1030 / 1030 490 / 490 Output Total 1999 700 / 700 700 / 700 Balance -1329.72 / -1329.72 330 / 330 -210 / -210 Lab / Micro Data 10/05/24 05:21 10/05/24 05:21 Labs: Laboratory Results - last 24 hr 10/05/24 05:21: WBC 9.0, RBC 4.89, Hgb 13.7, Hct 41.7, MCV 85.3, MCH 28.0, MCHC 32.9, RDW Std Deviation 39.9, RDW Coeff of Augustin 12.9, Plt Count 172, MPV 10.6, Immature Gran % (Auto) 0.600, Neut % (Auto) 91.1 H, Lymph % (Auto) 5.2 L, [place] %(Auto) 3.0, Eos % (Auto) 0.0, Baso % (Auto) 0.1, Absolute Neuts (auto) 8.2 H, Absolute Lymphs (auto) 0.47 L, Nucleated RBC % 0, Sodium 137, Potassium 4.7, Chloride 94 L, Carbon Dioxide 36.3 H, Anion Gap 6, BUN 23 H, Creatinine 0.52 L, Estim Creat Clear Calc 64.35, Est GFR (MDRD) Non-Af 101, BUN/Creatinine Ratio 44.0 H, Glucose 130 H, Calcium 8.5 Micro: Microbiology 09/29/24 09:15 Sputum, Expectorated/Coughed Gram Stain - Final 09/29/24 09:15 Sputum, Expectorated/Coughed Respiratory Culture - Final Stenotrophomonas maltophilia Pseudomonas aeruginosa 09/29/24 06:05 Mucosa - Nasopharyngeal Respiratory Panel (PCR) - Final 09/29/24 02:30 Mucosa - Nose SARS-CoV-2, Influenza & RSV (PCR) - Final Rhythm Strip Rhythm Strip: Sinus Rhythm Rate: 87 Physical Exam Const alert and oriented x3 Constitutional Narrative: tachycardia has improved. Frail. General Appearance: cooperative HEENT normocephalic, head/scalp atraumatic, moist oral mucous membranes and oropharynxnormal Eyes PERRL and EOMs intact bilaterally Neck supple General: trachea midline Lymph Lymphatic: no lymphedema noted Resp Resp Narrative: mildly diminished breath sounds bibasally, mild wheezing. NO crackles. On 2L of oxygen by nasal canula Cardio regular rate, regular rhythm, S1 normal heart sound, S2 normal heart sound and no murmurs GI normal to inspection, nondistended, normoactive bowel sounds, soft to palpation,non-tender and non-distended Extremity normal capillary refill and no clubbing, cyanosis or edema General Extremity: no tenderness to palpation of joints or extremities Skin General Skin Exam: no breakdown Neuro no focal motor deficits Neuro Narrative: alert, oriented x 3, communicative, moves all extremities spontaneously Motor Exam: general weakness Psych thought process normal and cooperative Appearance: appropriate Assessment & Plan Assessment/Plan (1) Tachycardia: (2) COPD with acute exacerbation: PLAN: Plan #Acute hypoxic and hypercapnic respiratory failure due to COPD exacerbation and pneumonia * sputum cultures growing Pseudomonas * has a history of non-small cell lung cancer. * on IV levaquin * breathing treatment with bronchodilators. Titrate oxygen to maintain sats >90% * Sputum cultures grew stenotrophomonas and Pseudomonas both sensitive to Levaquin * on 3L of oxygen by nasal canula * #Tachycardia * tachycardia has improved and she feels much better today. Cardiology on board. ON verapamil as cardiology thinks it is more of a multifocal atrial tachycardia. * 2D echo done showed severe concentric left ventricular hypertrophy with EF of 70% and stage I diastolic dysfunction as well as severely calcified aortic valve with severe aortic valve stenosis and mean peak gradient of 50 mmHg as well as trivial aortic valve regurgitation. * Cardiology on board. Management as per cardiology. * per cardiology, she will need to be worked up for TAVR on outpatient basis once she follows up with cardiology on discharge. * #Benign essential hypertension * on verapamil #Anxiety and depression: On Ativan nightly and buspirone #Restless leg syndrome: On pramipexole #GERD: on PPI DVT prophylaxis: On therapeutic Lovenox Disposition: anticipate by tomorrow. Charges/Coding Visit Charges Inpatient E&M: 89795 Subs Hosp L2 10/05/24 1300 <Electronically signed by Lynne Schafer MD> Lynne Schafer MD Cosigner Signature (if applicable): CC: ~ Signed [facility] Work Phone: 1(240) 430-973306-12-2025 Progress note [facility] Medical Records Department [address] [place] [address] Progress Note 10/05/24 1233 MR#: [id number] Acct: [id number] Name: DENIA GONZALEZ Rep #:[id number] : 1955 69 From: Lynne Schafer MD PCP: Dr. Yoseph Fall MD Status:AD M IN Location: [place] [address] Subjective Subjective Patient seen and examined. She was seen with her and is by her bedside. She isfeeling much better today. She is down to 2L of oxygen. She feels her breathing has improved. Review of systems is otherwise negative today. Objective Data Objective Data Vital Signs: Vital Signs Temp Pulse Resp BP Pulse Ox O2 Del Method O2 Flow Rate 97.7 F L 81 20 H 125/67 H 94 Nasal Cannula 2 10/05/24 11:30 10/05/24 11:30 10/05/24 11:30 10/05/24 11:30 10/05/24 11:30 10/05/24 11:30 10/05/24 11:30 FiO2 30 09/30/24 22:20 Oxygen Flow Rate (L/min) 2 Oxygen Delivery Method Nasal Cannula Weight: 157 lb 10.088 oz Body Mass Index (BMI) 27.0 Intake & Output: Intake and Output for Last 24 Hours 10/03/24 10/04/24 10/05/24 23:59 23:59 23:59 Intake Total 670.28 / 670.28 1030 / 1030 490 / 490 Output Total 1999 / 1999 700 / 700 700 / 700 Balance -1329.72 / -1329.72 330 / 330 -210 / -210 Lab / Micro Data 10/05/24 05:21 10/05/24 05:21 Labs: Laboratory Results - last 24 hr 10/05/24 05:21: WBC 9.0, RBC 4.89, Hgb 13.7, Hct 41.7, MCV 85.3, MCH 28.0, MCHC 32.9, RDW Std Deviation 39.9, RDW Coeff of Augustin 12.9, Plt Count 172, MPV 10.6, Immature Gran % (Auto) 0.600, Neut % (Auto) 91.1 H, Lymph % (Auto) 5.2 L, [place] %(Auto) 3.0, Eos % (Auto) 0.0, Baso % (Auto) 0.1, Absolute Neuts (auto) 8.2 H, Absolute Lymphs (auto) 0.47 L, Nucleated RBC % 0, Sodium 137, Potassium 4.7, Chloride 94 L, Carbon Dioxide 36.3 H, Anion Gap 6, BUN 23 H, Creatinine 0.52 L, Estim Creat Clear Calc 64.35, Est GFR (MDRD) Non-Af 101, BUN/Creatinine Ratio 44.0 H, Glucose 130 H, Calcium 8.5 Micro: Microbiology 09/29/24 09:15 Sputum, Expectorated/Coughed Gram Stain - Final 09/29/24 09:15 Sputum, Expectorated/Coughed Respiratory Culture - Final Stenotrophomonas maltophilia Pseudomonas aeruginosa 09/29/24 06:05 Mucosa - Nasopharyngeal Respiratory Panel (PCR) - Final 09/29/24 02:30 Mucosa - Nose SARS-CoV-2, Influenza & RSV (PCR) - Final Rhythm Strip Rhythm Strip: Sinus Rhythm Rate: 87 Physical Exam Const alert and oriented x3 Constitutional Narrative: tachycardia has improved. Frail. General Appearance: cooperative HEENT normocephalic, head/scalp atraumatic, moist oral mucous membranes and oropharynxnormal Eyes PERRL and EOMs intact bilaterally Neck supple General: trachea midline Lymph Lymphatic: no lymphedema noted Resp Resp Narrative: mildly diminished breath sounds bibasally, mild wheezing. NO crackles. On 2L of oxygen by nasal canula Cardio regular rate, regular rhythm, S1 normal heart sound, S2 normal heart sound and no murmurs GI normal to inspection, nondistended, normoactive bowel sounds, soft to palpation,non-tender and non-distended Extremity normal capillary refill and no clubbing, cyanosis or edema General Extremity: no tenderness to palpation of joints or extremities Skin General Skin Exam: no breakdown Neuro no focal motor deficits Neuro Narrative: alert, oriented x 3, communicative, moves all extremities spontaneously Motor Exam: general weakness Psych thought process normal and cooperative Appearance: appropriate Assessment & Plan Assessment/Plan (1) Tachycardia: (2) COPD with acute exacerbation: PLAN: Plan #Acute hypoxic and hypercapnic respiratory failure due to COPD exacerbation and pneumonia * sputum cultures growing Pseudomonas * has a history of non-small cell lung cancer. * on IV levaquin * breathing treatment with bronchodilators. Titrate oxygen to maintain sats >90% * Sputum cultures grew stenotrophomonas and Pseudomonas both sensitive to Levaquin * on 3L of oxygen by nasal canula * #Tachycardia * tachycardia has improved and she feels much better today. Cardiology on board. ON verapamil as cardiology thinks it is more of a multifocal atrial tachycardia. * 2D echo done showed severe concentric left ventricular hypertrophy with EF of 70% and stage I diastolic dysfunction as well as severely calcified aortic valve with severe aortic valve stenosis and mean peak gradient of 50 mmHg as well as trivial aortic valve regurgitation. * Cardiology on board. Management as per cardiology. * per cardiology, she will need to be worked up for TAVR on outpatient basis once she follows up with cardiology on discharge. * #Benign essential hypertension * on verapamil #Anxiety and depression: On Ativan nightly and buspirone #Restless leg syndrome: On pramipexole #GERD: on PPI DVT prophylaxis: On therapeutic Lovenox Disposition: anticipate by tomorrow. Charges/Coding Visit Charges Inpatient E&M: 51705 [facility] Hosp L2 10/05/24 9178 Lynne Schafer MD Cosigner Signature (if applicable): CC: ~ Signed [facility]06-11-2025 Progress note Author Lynne [facility] Note Date/Time October 04, 2024 5:59 pm [facility] Medical Records Department [address] [place] [address] Progress Note 10/04/24 1206 MR#: [id number] Acct: [id number] Name: DENIA GONZALEZ Rep #:[id number] : 1955 69 From: Lynne Schafer MD PCP: Dr. Yoseph Fall MD Status:AD M IN Location: [place] [address] Subjective Subjective Patient seen and examined. She had no active complaints today and had an uneventful night. Her breathing is improving. She is on 2L of oxygen. Objective Data Objective Data Vital Signs: Vital Signs Temp Pulse Resp BP Pulse Ox O2 Del Method O2 Flow Rate 98.2 F 101 H 18 140/73 H 94 Nasal Cannula 2 10/04/24 09:01 10/04/24 11:26 10/04/24 11:26 10/04/24 09:01 10/04/24 09:01 10/04/24 09:01 10/04/24 09:01 FiO2 30 09/30/24 22:20 Oxygen Flow Rate (L/min) 2 Oxygen Delivery Method Nasal Cannula Weight: 153 lb 7.068 oz Body Mass Index (BMI) 26.3 Intake & Output: Intake and Output for Last 24 Hours 10/02/24 10/03/24 10/04/24 23:59 23:59 23:59 Intake Total 1393.20 / 1509.90 670.28 / 670.28 Output Total 1999 Balance 1393.20 / 1209.90 -1329.72 / -1329.72 Lab / Micro Data 10/04/24 04:49 10/04/24 04:49 Labs: Laboratory Results - last 24 hr 10/04/24 04:49: WBC 7.2, RBC 4.86, Hgb 13.9, Hct 41.4, MCV 85.2, MCH 28.6, MCHC 33.6, RDW Std Deviation 39.8, RDW Coeff of Augustin 12.9, Plt Count 160, MPV 9.9, Immature Gran % (Auto) 0.600, Neut % (Auto) 90.1 H, Lymph % (Auto) 6.4 L, [place] %(Auto) 2.9, Eos % (Auto) 0.0, Baso % (Auto) 0.0, Absolute Neuts (auto) 6.5, Absolute Lymphs (auto) 0.46 L, Nucleated RBC % 0, Sodium 137, Potassium 4.6, Chloride 94 L, Carbon Dioxide 35.4 H, Anion Gap 8, BUN 21 H, Creatinine 0.58 L, Estim Creat Clear Calc 63.56, Est GFR (MDRD) Non-Af 98, BUN/Creatinine Ratio 36.3 H, Glucose 125 H, Calcium 8.7 Micro: Microbiology 09/29/24 09:15 Sputum, Expectorated/Coughed Gram Stain - Final 09/29/24 09:15 Sputum, Expectorated/Coughed Respiratory Culture - Final Stenotrophomonas maltophilia Pseudomonas aeruginosa 09/29/24 06:05 Mucosa - Nasopharyngeal Respiratory Panel (PCR) - Final 09/29/24 02:30 Mucosa - Nose SARS-CoV-2, Influenza & RSV (PCR) - Final Rhythm Strip Rhythm Strip: Sinus Rhythm Rate: 87 Physical Exam Const alert and oriented x3 Constitutional Narrative: tachycardia has improved. HEENT normocephalic, head/scalp atraumatic, moist oral mucous membranes and oropharynxnormal Eyes PERRL and EOMs intact bilaterally Neck supple General: trachea midline Lymph Lymphatic: no lymphedema noted Resp Resp Narrative: mildly diminished breath sounds bibasally, mild wheezing. NO crackles. On 2 L ofoxygen by nasal canula Cardio S1 normal heart sound, S2 normal heart sound and no murmurs Cardio Narrative: mild tachycardia, HR at 101. GI normal to inspection, nondistended, normoactive bowel sounds, soft to palpation,non-tender and non-distended Extremity normal capillary refill and no clubbing, cyanosis or edema General Extremity: no tenderness to palpation of joints or extremities Skin General Skin Exam: no breakdown Neuro no focal motor deficits Neuro Narrative: alert, oriented x 3, communicative, moves all extremities spontaneously Motor Exam: general weakness Psych thought process normal and cooperative Appearance: appropriate Assessment & Plan Assessment/Plan (1) Tachycardia: (2) COPD with acute exacerbation: PLAN: Plan #Acute hypoxic and hypercapnic respiratory failure due to COPD exacerbation and pneumonia * sputum cultures growing Pseudomonas * has a history of non-small cell lung cancer. * on IV levaquin * breathing treatment with bronchodilators. Titrate oxygen to maintain sats >90% * Sputum cultures grew stenotrophomonas and Pseudomonas both sensitive to Levaquin * on 3L of oxygen by nasal canula * #Tachycardia * tachycardia has improved and she feels much better today. Cardiology on board. ON verapamil as cardiology thinks it is more of a multifocal atrial tachycardia. * 2D echo done showed severe concentric left ventricular hypertrophy with EF of 70% and stage I diastolic dysfunction as well as severely calcified aortic valve with severe aortic valve stenosis and mean peak gradient of 50 mmHg as well as trivial aortic valve regurgitation. * Cardiology on board. Management as per cardiology. * #Benign essential hypertension * on verapamil #ANxiety and depression: On Ativan nightly. Buspirone also resumed #Restless leg syndrome: On pramipexole #GERD: on PPI DVT prophylaxis: On therapeutic Lovenox Disposition: anticipate dc over the next 24-48 hours. Charges/Coding Visit Charges Inpatient E&M: 70706 Subs Hosp L2 10/04/24 6803 <Electronically signed by Lynne Schafer MD> Lynne Schafer MD Cosigner Signature (if applicable): CC: ~ Signed [facility] Work Phone: [phone] 390-340906-11-2025 Progress note [facility] Medical Records Department [address] [place] [address] Progress Note 10/04/24 1206 MR#: [id number] Acct: [id number] Name: DENIA GONZALEZ Rep #:[id number] : 1955 69 From: Lynne Schafer MD PCP: Dr. Yoseph Fall MD Status:AD M IN Location: [place] [address] Subjective Subjective Patient seen and examined. She had no active complaints today and had an uneventful night. Her breathing is improving. She is on 2L of oxygen. Objective Data Objective Data Vital Signs: Vital Signs Temp Pulse Resp BP Pulse Ox O2 Del Method O2 Flow Rate 98.2 F 101 H 18 140/73 H 94 Nasal Cannula 2 10/04/24 09:01 10/04/24 11:26 10/04/24 11:26 10/04/24 09:01 10/04/24 09:01 10/04/24 09:01 10/04/24 09:01 FiO2 30 09/30/24 22:20 Oxygen Flow Rate (L/min) 2 Oxygen Delivery Method Nasal Cannula Weight: 153 lb 7.068 oz Body Mass Index (BMI) 26.3 Intake & Output: Intake and Output for Last 24 Hours 10/02/24 10/03/24 10/04/24 23:59 23:59 23:59 Intake Total 1393.20 / 1509.90 670.28 / 670.28 Output Total 1999 Balance 1393.20 / 1209.90 -1329.72 / -1329.72 Lab / Micro Data 10/04/24 04:49 10/04/24 04:49 Labs: Laboratory Results - last 24 hr 10/04/24 04:49: WBC 7.2, RBC 4.86, Hgb 13.9, Hct 41.4, MCV 85.2, MCH 28.6, MCHC 33.6, RDW Std Deviation 39.8, RDW Coeff of Augustin 12.9, Plt Count 160, MPV 9.9, Immature Gran % (Auto) 0.600, Neut % (Auto) 90.1 H, Lymph % (Auto) 6.4 L, [place] %(Auto) 2.9, Eos % (Auto) 0.0, Baso % (Auto) 0.0, Absolute Neuts (auto) 6.5, Absolute Lymphs (auto) 0.46 L, Nucleated RBC % 0, Sodium 137, Potassium 4.6, Chloride 94 L, Carbon Dioxide 35.4 H, Anion Gap 8, BUN 21 H, Creatinine 0.58 L, Estim Creat Clear Calc 63.56,Est GFR (MDRD) Non-Af 98, BUN/Creatinine Ratio 36.3 H, Glucose 125 H, Calcium 8.7 Micro: Microbiology 09/29/24 09:15 Sputum, Expectorated/Coughed Gram Stain - Final 09/29/24 09:15 Sputum, Expectorated/Coughed Respiratory Culture - Final Stenotrophomonas maltophilia Pseudomonas aeruginosa 09/29/24 06:05 Mucosa - Nasopharyngeal Respiratory Panel (PCR) - Final 09/29/24 02:30 Mucosa - Nose SARS-CoV-2, Influenza & RSV (PCR) - Final Rhythm Strip Rhythm Strip: Sinus Rhythm Rate: 87 Physical Exam Const alert and oriented x3 Constitutional Narrative: tachycardia has improved. HEENT normocephalic, head/scalp atraumatic, moist oral mucous membranes and oropharynxnormal Eyes PERRL and EOMs intact bilaterally Neck supple General: trachea midline Lymph Lymphatic: no lymphedema noted Resp Resp Narrative: mildly diminished breath sounds bibasally, mild wheezing. NO crackles. On 2 L ofoxygen by nasal canula Cardio S1 normal heart sound, S2 normal heart sound and no murmurs Cardio Narrative: mild tachycardia, HR at 101. GI normal to inspection, nondistended, normoactive bowel sounds, soft to palpation,non-tender and non-distended Extremity normal capillary refill and no clubbing, cyanosis or edema General Extremity: no tenderness to palpation of joints or extremities Skin General Skin Exam: no breakdown Neuro no focal motor deficits Neuro Narrative: alert, oriented x 3, communicative, moves all extremities spontaneously Motor Exam: general weakness Psych thought process normal and cooperative Appearance: appropriate Assessment & Plan Assessment/Plan (1) Tachycardia: (2) COPD with acute exacerbation: PLAN: Plan #Acute hypoxic and hypercapnic respiratory failure due to COPD exacerbation and pneumonia * sputum cultures growing Pseudomonas * has a history of non-small cell lung cancer. * on IV levaquin * breathing treatment with bronchodilators. Titrate oxygen to maintain sats >90% * Sputum cultures grew stenotrophomonas and Pseudomonas both sensitive to Levaquin * on 3L of oxygen by nasal canula * #Tachycardia * tachycardia has improved and she feels much better today. Cardiology on board. ON verapamil as cardiology thinks it is more of a multifocal atrial tachycardia. * 2D echo done showed severe concentric left ventricular hypertrophy with EF of 70% and stage I diastolic dysfunction as well as severely calcified aortic valve with severe aortic valve stenosis and mean peak gradient of 50 mmHg as well as trivial aortic valve regurgitation. * Cardiology on board. Management as per cardiology. * #Benign essential hypertension * on verapamil #ANxiety and depression: On Ativan nightly. Buspirone also resumed #Restless leg syndrome: On pramipexole #GERD: on PPI DVT prophylaxis: On therapeutic Lovenox Disposition: anticipate dc over the next 24-48 hours. Charges/Coding Visit Charges Inpatient E&M: 21562 Subs Hosp L2 10/04/24 9920 Lynne Schafer MD Cosigner Signature (if applicable): CC: ~ Signed [facility]06-11-2025 Progress note Author Junito Madrid [facility] Note Date/Time October 04, 2024 10:2 2am [facility] Medical Records Department [address] [place] [address] Progress Note - Cardiology 10/04/24 1014 MR#: [id number] Acct: [id number] Name: DENIA GONZALEZ Rep #:[id number] : 1955 69 From: Junito Madrid MD PCP: Dr. Yoseph Fall MD Status:AD M IN Location: [place] [id number] Subjective Subjective Patient is resting comfortably in bed. Reports that her breathing is better herheart rate has converted into sinus rhythm at 87 bpm. She had been in atrial fibrillation she converted around 1900 hrs. yesterday. Objective Data Vital Signs: Vital Signs Temp Pulse Resp BP Pulse Ox O2 Del Method O2 Flow Rate 98.2 F 98 22 H 140/73 H 94 Nasal Cannula 2 10/04/24 09:01 10/04/24 09:01 10/04/24 09:01 10/04/24 09:01 10/04/24 09:01 10/04/24 09:01 10/04/24 09:01 FiO2 30 09/30/24 22:20 Oxygen Flow Rate (L/min) 2 Oxygen Delivery Method Nasal Cannula Weight: 153 lb 7.068 oz Body Mass Index (BMI) 26.3 Intake & Output: Intake and Output for Last 24 Hours 10/02/24 10/03/24 10/04/24 23:59 23:59 23:59 Intake Total 1393.20 / 1509.90 670.28 / 670.28 Output Total 1999 Balance 1393.20 / 1209.90 -1329.72 / -1329.72 Lab / Micro Data Attestation: I reviewed the patient's lab results. 10/04/24 04:49 10/04/24 04:49 Labs: Laboratory Results - last 24 hr 10/03/24 09:17: Sodium 135, Potassium 4.4, Chloride 93 L, Carbon Dioxide 34.0 H,Anion Gap 9, BUN 23 H, Creatinine 0.65 L, Estim Creat Clear Calc 63.56, Est GFR (MDRD) Non-Af 95, BUN/Creatinine Ratio 34.9 H, Glucose 220 H, Calcium 8.8, Free T4 1.20 10/04/24 04:49: WBC 7.2, RBC 4.86, Hgb 13.9, Hct 41.4, MCV 85.2, MCH 28.6, MCHC 33.6, RDW Std Deviation 39.8, RDW Coeff of Augustin 12.9, Plt Count 160, MPV 9.9, Immature Gran % (Auto) 0.600, Neut % (Auto) 90.1 H, Lymph % (Auto) 6.4 L, [place] %(Auto) 2.9, Eos % (Auto) 0.0, Baso % (Auto) 0.0, Absolute Neuts (auto) 6.5, Absolute Lymphs (auto) 0.46 L, Nucleated RBC % 0, Sodium 137, Potassium 4.6, Chloride 94 L, Carbon Dioxide 35.4 H, Anion Gap 8, BUN 21 H, Creatinine 0.58 L, Estim Creat Clear Calc 63.56, Est GFR (MDRD) Non-Af 98, BUN/Creatinine Ratio 36.3 H, Glucose 125 H, Calcium 8.7 Micro: Microbiology 09/29/24 09:15 Sputum, Expectorated/Coughed Gram Stain - Final 09/29/24 09:15 Sputum, Expectorated/Coughed Respiratory Culture - Final Stenotrophomonas maltophilia Pseudomonas aeruginosa Rhythm Strip Rhythm Strip: Sinus Rhythm Rate: 87 Cardiology Labs/Tests 10/03/24 09:17: Sodium 135, Potassium 4.4, Chloride 93 L, Carbon Dioxide 34.0 H,Anion Gap 9, BUN 23 H, Creatinine 0.65 L, Est GFR (MDRD) Non-Af 95, BUN/Creatinine Ratio 34.9 H, Glucose 220 H, Calcium 8.8 10/04/24 04:49: WBC 7.2, RBC 4.86, Hgb 13.9, Hct 41.4, MCV 85.2, MCH 28.6, MCHC 33.6, Plt Count 160, MPV 9.9, Immature Gran % (Auto) 0.600, Neut % (Auto) 90.1 H, Lymph % (Auto) 6.4 L, [place] % (Auto) 2.9, Eos % (Auto) 0.0, Baso % (Auto) 0.0, Absolute Neuts (auto) 6.5, Nucleated RBC % 0, Sodium 137, Potassium 4.6, Chloride 94 L, Carbon Dioxide 35.4 H, Anion Gap 8, BUN 21 H, Creatinine 0.58 L, Est GFR (MDRD) Non-Af 98, BUN/Creatinine Ratio 36.3 H, Glucose 125 H, Calcium 8.7 Rhythm: EKG: ECHO: Stress Test: Cardiac Cath: PCI: CT Surgery: Holter monitor: EPS: PPM: CXR: Chest CT Scan: Physical Exam Const alert and oriented x3 HEENT normocephalic Eyes EOMs intact bilaterally Resp normal respiratory effort Auscultation: wheezes scattered wheezes and throughout and diminished lung sounds right lower Cardio Rate: regular rate Rhythm: regular rhythm Heart Sounds: S1 normal, S2 normal and murmur systolic II/ harsh holo left sternal border and sternal notch; Negative for click or gallop Extremity no pedal edema Psych mental status grossly normal Assessment & Plan Assessment/Plan (1) Aortic valve stenosis: QUALIFIERS: Cardiac valve disease etiology: nonrheumatic Qualified Code(s): I35.0 - Nonrheumatic aortic (valve) stenosis PLAN: Patient's aortic valve stenosis is severe. Peak gradient of 75 mean gradient of 50. She also has an increased septum of 1.8 cm with the posterior wall 1.2 cm. This needs to be taken into account should she undergo aortic valve replacement or TAVR. Will reevaluate the patient in the outpatient setting after she recovers from her COPD exacerbation to determine best next steps as far as evaluation and/or treatment of her aortic valve disease. (2) Tachycardia: PLAN: Patient presented with multifocal atrial tachycardia and atrial fibrillation. She is currently reverted into normal sinus rhythm. She had beencontrolled in her home environment on verapamil 360 mg daily. We will reinstitute that medication today. She has been maintained on verapamil 120 mg 3 times daily during her hospitalization due to her labile blood pressures. (3) COPD with acute exacerbation: PLAN: Patient COPD exacerbation is being treated treated with IV antibiotics andIV steroids. Her air movement is improving. When she is completely recovered and back to baseline she will be reevaluated inin the [facility] office for further evaluation and treatment options for her aortic valve disease. (4) Non-small cell lung cancer: QUALIFIERS: Laterality: right Qualified Code(s): C34.91 - Malignant neoplasm of unspecified part of right bronchus or lung PLAN: Patient carries a history of non-small cell lung cancer status post right lower lobe resection several years ago by her report. She also reports that sheis considered in remission. This will need to be confirmed prior to proceeding with further invasive evaluation and treatment options for her aortic valve. PLAN: Plan 1. Will change verapamil from 120 mg 3 times daily to 360 mg daily. 2. Patient can progress activities as tolerated. 3. Patient should follow-up with the [facility] in 2 to 3 weeks after discharge when she is completely cleared of her COPD exacerbation. 4. The patient should call to schedule that appointment with Dr. Madrid or one of the advanced practitioners. 5. From a cardiovascular standpoint the patient should be able to be dischargedonce her COPD exacerbation is controlled. Charges/Coding Visit Charges Inpatient E&M: 04725 Subs Hosp L3 10/04/24 1022 <Electronically signed by Junito Madrid MD> Cosigner Signature (if applicable): CC: ~ Signed [facility] Work Phone: [phone] 341-498806-11-2025 Progress note [facility] Medical Records Department [address] [place] [address] Progress Note - Cardiology 10/04/24 1014 MR#: [id number] Acct: [id number] Name: DENIA GONZALEZ Rep #:[id number] : 1955 69 From: Junito Madrid MD PCP: Dr. Yoseph Fall MD Status:AD M IN Location: [place] [address] Subjective Subjective Patient is resting comfortably in bed. Reports that her breathing is better herheart rate has converted into sinus rhythm at 87 bpm. She had been in atrial fibrillation she converted around 1900 hrs.yesterday. Objective Data Vital Signs: Vital Signs Temp Pulse Resp BP Pulse Ox O2 Del Method O2 Flow Rate 98.2 F 98 22 H 140/73 H 94 Nasal Cannula 2 10/04/24 09:01 10/04/24 09:01 10/04/24 09:01 10/04/24 09:01 10/04/24 09:01 10/04/24 09:01 10/04/24 09:01 FiO2 30 09/30/24 22:20 Oxygen Flow Rate (L/min) 2 Oxygen Delivery Method Nasal Cannula Weight: 153 lb 7.068 oz Body Mass Index (BMI) 26.3 Intake & Output: Intake and Output for Last 24 Hours 10/02/24 10/03/24 10/04/24 23:59 23:59 23:59 Intake Total 1393.20 / 1509.90 670.28 / 670.28 Output Total 1999 Balance 1393.20 / 1209.90 -1329.72 / -1329.72 Lab / Micro Data Attestation: I reviewed the patient's lab results. 10/04/24 04:49 10/04/24 04:49 Labs: Laboratory Results - last 24 hr 10/03/24 09:17: Sodium 135, Potassium 4.4, Chloride 93 L, Carbon Dioxide 34.0 H,Anion Gap 9, BUN 23H, Creatinine 0.65 L, Estim Creat Clear Calc 63.56, Est GFR (MDRD) Non-Af 95, BUN/Creatinine Ratio 34.9 H, Glucose 220 H, Calcium 8.8, Free T4 1.20 10/04/24 04:49: WBC 7.2, RBC 4.86, Hgb 13.9, Hct 41.4, MCV 85.2, MCH 28.6, MCHC 33.6, RDW Std Deviation 39.8, RDW Coeff of Augustin 12.9, Plt Count 160, MPV 9.9, Immature Gran % (Auto) 0.600, Neut % (Auto) 90.1 H, Lymph % (Auto) 6.4 L, [place] %(Auto) 2.9, Eos % (Auto) 0.0, Baso % (Auto) 0.0, Absolute Neuts (auto) 6.5, Absolute Lymphs (auto) 0.46 L, Nucleated RBC % 0, Sodium 137, Potassium 4.6, Chloride 94 L, Carbon Dioxide 35.4 H, Anion Gap 8, BUN 21 H, Creatinine 0.58 L, Estim Creat Clear Calc 63.56,Est GFR (MDRD) Non-Af 98, BUN/Creatinine Ratio 36.3 H, Glucose 125 H, Calcium 8.7 Micro: Microbiology 09/29/24 09:15 Sputum, Expectorated/Coughed Gram Stain - Final 09/29/24 09:15 Sputum, Expectorated/Coughed Respiratory Culture - Final Stenotrophomonas maltophilia Pseudomonas aeruginosa Rhythm Strip Rhythm Strip: Sinus Rhythm Rate: 87 Cardiology Labs/Tests 10/03/24 09:17: Sodium 135, Potassium 4.4, Chloride 93 L, Carbon Dioxide 34.0 H,Anion Gap 9, BUN 23H, Creatinine 0.65 L, Est GFR (MDRD) Non-Af 95, BUN/Creatinine Ratio 34.9 H, Glucose 220 H, Calcium8.8 10/04/24 04:49: WBC 7.2, RBC 4.86, Hgb 13.9, Hct 41.4, MCV 85.2, MCH 28.6, MCHC 33.6, Plt Count 160, MPV 9.9, Immature Gran % (Auto) 0.600, Neut % (Auto) 90.1 H, Lymph % (Auto) 6.4 L, [place] % (Auto) 2.9, Eos % (Auto) 0.0, Baso % (Auto) 0.0, Absolute Neuts (auto) 6.5, Nucleated RBC % 0, Sodium 137, Potassium 4.6, Chloride 94 L, Carbon Dioxide 35.4 H, Anion Gap 8, BUN 21 H, Creatinine 0.58 L, Est GFR (MDRD) Non-Af 98, BUN/Creatinine Ratio 36.3 H, Glucose 125 H, Calcium 8.7 Rhythm: EKG: ECHO: Stress Test: Cardiac Cath: PCI: CT Surgery: Holter monitor: EPS: PPM: CXR: Chest CT Scan: Physical Exam Const alert and oriented x3 HEENT normocephalic Eyes EOMs intact bilaterally Resp normal respiratory effort Auscultation: wheezes scattered wheezes and throughout and diminished lung sounds right lower Cardio Rate: regular rate Rhythm: regular rhythm Heart Sounds: S1 normal, S2 normal and murmur systolic II/ harsh holo left sternal border and sternal notch; Negative for click or gallop Extremity no pedal edema Psych mental status grossly normal Assessment & Plan Assessment/Plan (1) Aortic valve stenosis: QUALIFIERS: Cardiac valve disease etiology: nonrheumatic Qualified Code(s): I35.0 - Nonrheumatic aortic (valve) stenosis PLAN: Patient's aortic valve stenosis is severe. Peak gradient of 75 mean gradient of 50. She also has an increased septum of 1.8 cm with the posterior wall 1.2 cm. This needs to be taken into account should she undergo aortic valve replacement or TAVR. Will reevaluate the patient in the outpatient setting after she recovers from her COPD exacerbationto determine best next steps as far as evaluation and/or treatment of her aortic valve disease. (2) Tachycardia: PLAN: Patient presented with multifocal atrial tachycardia and atrial fibrillation. She is currently reverted into normal sinus rhythm. She had beencontrolled in her home environment on verapamil 360mg daily. We will reinstitute that medication today. She has been maintained on verapamil 120 mg 3 times daily during her hospitalization due to her labile blood pressures. (3) COPD with acute exacerbation: PLAN: Patient COPD exacerbation is being treated treated with IV antibiotics andIV steroids. Her air movement is improving. When she is completely recovered and back to baseline she will be reevaluated inin the [facility] office for further evaluation and treatment options for her aortic valve disease. (4) Non-small cell lung cancer: QUALIFIERS: Laterality: right Qualified Code(s): C34.91 - Malignant neoplasm of unspecified part ofright bronchus or lung PLAN: Patient carries a history of non-small cell lung cancer status post right lower lobe resection several years ago by her report. She also reports that sheis considered in remission. This will need to be confirmed prior to proceeding with further invasive evaluation and treatment options for her aortic valve. PLAN: Plan 1. Will change verapamil from 120 mg 3 times daily to 360 mg daily. 2. Patient can progress activities as tolerated. 3. Patient should follow-up with the [facility] in 2 to 3 weeks after discharge when she is completely cleared of her COPD exacerbation. 4. The patient should call to schedule that appointment with Dr. Madrid or one of the advanced practitioners. 5. From a cardiovascular standpoint the patient should be able to be dischargedonce her COPD exacerbation is controlled. Charges/Coding Visit Charges Inpatient E&M: 91046 Subs Hosp L3 10/04/24 1022 Cosigner Signature (if applicable): CC: ~ Signed [facility]06-10-2025 Progress note Author [facility]ne [facility] Note Date/Time October 03, 2024 5:50 pm [facility] Medical Records Department [address] [place] [address] Progress Note 10/03/24 1218 MR#: [id number] Acct: [id number] Name: DENIA GONZALEZ Rep #:[id number] : 1955 69 From: Lynne Schafer MD PCP: Dr. Yoseph Fall MD Status:AD M IN Location: [place] [address] Subjective Subjective Patient seen and examined with her nurse by her bedside. Still complains of feeling short of breath. Heart rate had improved and was down in the 90s at time of review but with just sitting up and talking her heart rate went up to the 140s and 150s. She denied any lightheadedness, nausea vomiting or any othersymptoms. Review of symptoms otherwise negative. Objective Data Objective Data Vital Signs: Vital Signs Temp Pulse Resp BP Pulse Ox O2 Del Method O2 Flow Rate 98.9 F 114 H 20 H 120/73 98 Nasal Cannula 3 10/02/24 22:00 10/03/24 10:47 10/03/24 10:47 10/03/24 07:00 10/03/24 07:40 10/03/24 07:40 10/03/24 07:40 FiO2 30 09/30/24 22:20 Oxygen Flow Rate (L/min) 3 Oxygen Delivery Method Nasal Cannula Weight: 153 lb 7.068 oz Body Mass Index (BMI) 26.3 Intake & Output: Intake and Output for Last 24 Hours 10/01/24 10/02/24 10/03/24 23:59 23:59 23:59 Intake Total 1470 / 1470 1393.20 / 1509.90 400.28 / 400.28 Output Total 700 / 700 Balance 1470 / 1470 1393.20 / 1209.90 -299.72 / -299.72 Lab / Micro Data 10/03/24 09:17 10/03/24 09:17 Labs: Laboratory Results - last 24 hr 10/02/24 11:50: Troponin T Hi Sens 2 Hr 23 H 10/02/24 14:15: Troponin T Hi Sens 4Hr 24 H 10/03/24 09:17: WBC 9.2, RBC 4.83, Hgb 13.6, Hct 41.4, MCV 85.7, MCH 28.2, MCHC 32.9, RDW Std Deviation 40.3, RDW Coeff of Augustin 13.1, Plt Count 184, MPV 10.2, Immature Gran % (Auto) 0.300, Neut % (Auto) 93.2 H, Lymph % (Auto) 5.2 L, [place] %(Auto) 1.2, Eos % (Auto) 0.0, Baso % (Auto) 0.1, Absolute Neuts (auto) 8.5 H, Absolute Lymphs (auto) 0.48 L, Nucleated RBC % 0, Sodium 135, Potassium 4.4, Chloride 93 L, Carbon Dioxide 34.0 H, Anion Gap 9, BUN 23 H, Creatinine 0.65 L, Estim Creat Clear Calc 63.56, Est GFR (MDRD) Non-Af 95, BUN/Creatinine Ratio 34.9 H, Glucose 220 H, Calcium 8.8, Free T4 1.20 Micro: Microbiology 09/29/24 09:15 Sputum, Expectorated/Coughed Gram Stain - Final 09/29/24 09:15 Sputum, Expectorated/Coughed Respiratory Culture - Final Stenotrophomonas maltophilia Pseudomonas aeruginosa 09/29/24 06:05 Mucosa - Nasopharyngeal Respiratory Panel (PCR) - Final 09/29/24 02:30 Mucosa - Nose SARS-CoV-2, Influenza & RSV (PCR) - Final Radiography Diagnostic Testing: Radiology Impression Echocardiogram 10/02/24 09:04 Interpretation Summary Severe concentric left ventricular hypertrophy. The LV systolic function is normal. EF is 70 %. Stage 1 diastolic dysfunction. Mild tricuspid valve insufficiency. Severely calcified aortic valve. Severe aortic valve stenosis. Mean peak gradient 50 mmHg. Aortic valve area 0.85 cm??. Trivial aortic valve regurgitation. The study was technically difficult. Ordering Physician: Lynne Schafer Referring Physician: MD Eufemia Yoseph Performed By: Saray Torrez RDCS Rhythm Strip Rhythm Strip: A-fib Rate: 100 Physical Exam Const alert and oriented x3 HEENT normocephalic, head/scalp atraumatic, moist oral mucous membranes and oropharynxnormal Eyes PERRL and EOMs intact bilaterally Neck supple General: trachea midline Lymph Lymphatic: no lymphedema noted Resp Resp Narrative: mildly diminished breath sounds bibasally, mild wheezing. NO crackles. On 3L of oxygen by nasal canula Cardio S1 normal heart sound, S2 normal heart sound and no murmurs Cardio Narrative: tachycardic, HR in the 140s and 150s. GI normal to inspection, nondistended, normoactive bowel sounds, soft to palpation,non-tender and non-distended Extremity normal capillary refill and no clubbing, cyanosis or edema General Extremity: no tenderness to palpation of joints or extremities Skin General Skin Exam: no breakdown Neuro no focal motor deficits Neuro Narrative: alert, oriented x 3, communicative, moves all extremities spontaneously Motor Exam: general weakness Psych thought process normal and cooperative Appearance: appropriate Assessment & Plan Assessment/Plan (1) Tachycardia: (2) COPD with acute exacerbation: PLAN: Plan #Acute hypoxic and hypercapnic respiratory failure due to COPD exacerbation and pneumonia * sputum cultures growing Pseudomonas * has a history of non-small cell lung cancer. * on IV levaquin * breathing treatment with bronchodilators. Titrate oxygen to maintain sats >90% * Sputum cultures grew stenotrophomonas and Pseudomonas both sensitive to Levaquin * on 3L of oxygen by nasal canula * #Tachycardia * Patient was noted to be tachycardic and was placed on verapamil. Got concern for A-fib with RVR so she was started on amiodarone drip. She is finishing up the back of amiodarone drip today. * Cardiology reviewed and noted it was more of multifocal atrial tachycardia. Plan therefore was for her to be placed back on her verapamil and stop amiodarone once the current bag is finished. * Patient still however tachycardic this morning especially with slight exertion. She goes up to the 140s and 150s and heart rate. * 2D echo done showed severe concentric left ventricular hypertrophy with EF of 70% and stage I diastolic dysfunction as well as severely calcified aortic valve with severe aortic valve stenosis and mean peak gradient of 50 mmHg as well as trivial aortic valve regurgitation. * Cardiology on board. Management as per cardiology. * #Benign essential hypertension * in verapamil #ANxiety and depression: On Ativan nightly. Buspirone also resumed #Restless leg syndrome: On pramipexole #GERD: on PPI DVT prophylaxis: On therapeutic Lovenox Charges/Coding Visit Charges Inpatient E&M: 16266 Subs Hosp L2 10/03/24 1750 <Electronically signed by Lynne Schafer MD> Lynne Schafer MD Cosigner Signature (if applicable): CC: ~ Signed [facility] Work Phone: 1(857) 431-451306-10-2025 Progress note [facility] Medical Records Department [address] [place] [address] Progress Note 10/03/24 1218 MR#: [id number] Acct: [id number] Name: DENIA GONZALEZ Rep #:[id number] : 1955 69 From: Lynne Schafer MD PCP: Dr. Yoseph Fall MD Status:AD M IN Location: [place] [address] Subjective Subjective Patient seen and examined with her nurse by her bedside. Still complains of feeling short of breath. Heart rate had improved and was down in the 90s at time of review but with just sitting up and talking her heart rate went up to the 140s and 150s. She denied any lightheadedness, nausea vomiting orany othersymptoms. Review of symptoms otherwise negative. Objective Data Objective Data Vital Signs: Vital Signs Temp Pulse Resp BP Pulse Ox O2 Del Method O2 Flow Rate 98.9 F 114 H 20 H 120/73 98 Nasal Cannula 3 10/02/24 22:00 10/03/24 10:47 10/03/24 10:47 10/03/24 07:00 10/03/24 07:40 10/03/24 07:40 10/03/24 07:40 FiO2 30 09/30/24 22:20 Oxygen Flow Rate (L/min) 3 Oxygen Delivery Method Nasal Cannula Weight: 153 lb 7.068 oz Body Mass Index (BMI) 26.3 Intake & Output: Intake and Output for Last 24 Hours 10/01/24 10/02/24 10/03/24 23:59 23:59 23:59 Intake Total 1470 / 1470 1393.20 / 1509.90 400.28 / 400.28 Output Total 700 / 700 Balance 1470 / 1470 1393.20 / 1209.90 -299.72 / -299.72 Lab / Micro Data 10/03/24 09:17 10/03/24 09:17 Labs: Laboratory Results - last 24 hr 10/02/24 11:50: Troponin T Hi Sens 2 Hr 23 H 10/02/24 14:15: Troponin T Hi Sens 4Hr 24 H 10/03/24 09:17: WBC 9.2, RBC 4.83, Hgb 13.6, Hct 41.4, MCV 85.7, MCH 28.2, MCHC 32.9, RDW Std Deviation 40.3, RDW Coeff of Augustin 13.1, Plt Count 184, MPV 10.2, Immature Gran % (Auto) 0.300, Neut % (Auto) 93.2 H, Lymph % (Auto) 5.2 L, [place] %(Auto) 1.2, Eos % (Auto) 0.0, Baso % (Auto) 0.1, Absolute Neuts (auto) 8.5 H, Absolute Lymphs (auto) 0.48 L, Nucleated RBC % 0, Sodium 135, Potassium 4.4, Chloride 93 L, Carbon Dioxide 34.0 H, Anion Gap 9, BUN 23 H, Creatinine 0.65 L, Estim Creat Clear Calc 63.56, Est GFR (MDRD) Non-Af 95, BUN/Creatinine Ratio 34.9 H, Glucose 220 H, Calcium 8.8, Free T4 1.20 Micro: Microbiology 09/29/24 09:15 Sputum, Expectorated/Coughed Gram Stain - Final 09/29/24 09:15 Sputum, Expectorated/Coughed Respiratory Culture - Final Stenotrophomonas maltophilia Pseudomonas aeruginosa 09/29/24 06:05 Mucosa - Nasopharyngeal Respiratory Panel (PCR) - Final 09/29/24 02:30 Mucosa - Nose SARS-CoV-2, Influenza & RSV (PCR) - Final Radiography Diagnostic Testing: Radiology Impression Echocardiogram 10/02/24 09:04 Interpretation Summary Severe concentric left ventricular hypertrophy. The LV systolic function is normal. EF is 70 %. Stage 1 diastolic dysfunction. Mild tricuspid valve insufficiency. Severely calcified aortic valve. Severe aortic valve stenosis. Mean peak gradient 50 mmHg. Aortic valve area 0.85 cm??. Trivial aortic valve regurgitation. The study was technically difficult. Ordering Physician: Lynne Schafer Referring Physician: MD Eufemia Yoseph Performed By: Saray Torrez [facility] Rhythm Strip Rhythm Strip: A-fib Rate: 100 Physical Exam Const alert and oriented x3 HEENT normocephalic, head/scalp atraumatic, moist oral mucous membranes and oropharynxnormal Eyes PERRL and EOMs intact bilaterally Neck supple General: trachea midline Lymph Lymphatic: no lymphedema noted Resp Resp Narrative: mildly diminished breath sounds bibasally, mild wheezing. NO crackles. On 3L of oxygen by nasal canula Cardio S1 normal heart sound, S2 normal heart sound and no murmurs Cardio Narrative: tachycardic, HR in the 140s and 150s. GI normal to inspection, nondistended, normoactive bowel sounds, soft to palpation,non-tender and non-distended Extremity normal capillary refill and no clubbing, cyanosis or edema General Extremity: no tenderness to palpation of joints or extremities Skin General Skin Exam: no breakdown Neuro no focal motor deficits Neuro Narrative: alert, oriented x 3, communicative, moves all extremities spontaneously Motor Exam: general weakness Psych thought process normal and cooperative Appearance: appropriate Assessment & Plan Assessment/Plan (1) Tachycardia: (2) COPD with acute exacerbation: PLAN: Plan #Acute hypoxic and hypercapnic respiratory failure due to COPD exacerbation and pneumonia * sputum cultures growing Pseudomonas * has a history of non-small cell lung cancer. * on IV levaquin * breathing treatment with bronchodilators. Titrate oxygen to maintain sats >90% * Sputum cultures grew stenotrophomonas and Pseudomonas both sensitive to Levaquin * on 3L of oxygen by nasal canula * #Tachycardia * Patient was noted to be tachycardic and was placed on verapamil. Got concern for A-fib with RVR so she was started on amiodarone drip. She is finishing up the back of amiodarone drip today. * Cardiology reviewed and noted it was more of multifocal atrial tachycardia. Plan therefore was for her to be placed back on her verapamil and stop amiodarone once the current bag is finished. * Patient still however tachycardic this morning especially with slight exertion. She goes up to the 140s and 150s and heart rate. * 2D echo done showed severe concentric left ventricular hypertrophy with EF of 70% and stage I diastolic dysfunction as well as severely calcified aortic valve with severe aortic valve stenosis and mean peak gradient of 50 mmHg as well as trivial aortic valve regurgitation. * Cardiology on board. Management as per cardiology. * #Benign essential hypertension * in verapamil #ANxiety and depression: On Ativan nightly. Buspirone also resumed #Restless leg syndrome: On pramipexole #GERD: on PPI DVT prophylaxis: On therapeutic Lovenox Charges/Coding Visit Charges Inpatient E&M: 38638 Subs Hosp L2 10/03/24 6100 Lynne Schafer MD Cosigner Signature (if applicable): CC: ~ Signed [facility]06-10-2025 Progress note Author Junito Madrid [facility] Note Date/Time October 03, 2024 8:49 am [facility] Medical Records Department [address] [place] [address] Progress Note - Cardiology 10/03/24839 MR#: [id number] Acct: [id number] Name: DENIA GONZALEZ Rep #:[id number] : 1955 69 From: Junito Madrid MD PCP: Dr. Yoseph Fall MD Status:AD M IN Location: [place] [address]- 1 Subjective Subjective Patient is resting comfortably in the bed this morning. Telemetry shows that her rhythm is now atrial fibrillation with a heart rate of approximately 100 bpm. I did review the patient's situation with her nursing staff. The patient is tolerating full dose Lovenox. Her echocardiogram showed severe aortic stenosis with a peak gradient of 75 mmHg and a mean gradient of 50. Her septal thickness is 1.8 cm posterior wall is 1.2 consistent with some asymmetricseptal hypertrophy. Objective Data Vital Signs: Vital Signs Temp Pulse Resp BP Pulse Ox O2 Del Method O2 Flow Rate 98.9 F 97 20 H 120/73 98 Nasal Cannula 3 10/02/24 22:00 10/03/24 07:40 10/03/24 07:40 10/03/24 07:00 10/03/24 07:40 10/03/24 07:40 10/03/24 07:40 FiO2 30 09/30/24 22:20 Oxygen Flow Rate (L/min) 3 Oxygen Delivery Method Nasal Cannula Weight: 153 lb 7.068 oz Body Mass Index (BMI) 26.3 Intake & Output: Intake and Output for Last 24 Hours 10/01/24 10/02/24 10/03/24 23:59 23:59 23:59 Intake Total 1470 / 1470 1393.20 / 1509.90 333.48 / 333.48 Output Total 700 / 700 Balance 1470 / 1470 1393.20 / 1209.90 -366.52 / -366.52 Lab / Micro Data Attestation: I reviewed the patient's lab results. 10/02/24 07:13 10/02/24 07:13 Labs: Laboratory Results - last 24 hr 10/02/24 09:31: Magnesium 2.1, Troponin T High Sens 23 H, TSH 0.281 L 10/02/24 11:50: Troponin T Hi Sens 2 Hr 23 H 10/02/24 14:15: Troponin T Hi Sens 4Hr 24 H Micro: Microbiology 09/29/24 09:15 Sputum, Expectorated/Coughed Gram Stain - Final 09/29/24 09:15 Sputum, Expectorated/Coughed Respiratory Culture - Final Stenotrophomonas maltophilia Pseudomonas aeruginosa Rhythm Strip Rhythm Strip: A-fib Rate: 100 Cardiology Labs/Tests 10/02/24 09:31: Magnesium 2.1 Rhythm: EKG: ECHO: Stress Test: Cardiac Cath: PCI: CT Surgery: Holter monitor: EPS: PPM: CXR: Chest CT Scan: Radiography Diagnostic Testing: Radiology Impression Echocardiogram 10/02/24 09:04 Interpretation Summary Severe concentric left ventricular hypertrophy. The LV systolic function is normal. EF is 70 %. Stage 1 diastolic dysfunction. Mild tricuspid valve insufficiency. Severely calcified aortic valve. Severe aortic valve stenosis. Mean peak gradient 50 mmHg. Aortic valve area 0.85 cm??. Trivial aortic valve regurgitation. The study was technically difficult. Ordering Physician: Lynne Schafer Referring Physician: MD Eufemia Yoseph Performed By: Saray Torrez, [facility] Physical Exam Const alert and oriented x3 HEENT normocephalic Eyes EOMs intact bilaterally Resp normal respiratory effort Auscultation: wheezes expiratory wheezes and throughout (Less prominent than 24 hours ago.), breath sounds absent right (base) and diminished lung sounds diffuse Cardio Rate: tachycardic Rhythm: abnormal rhythm irregularly irregular Heart Sounds: S1 normal, S2 normal and murmur systolic II/ harsh (A cooing holosystolic murmur consistent with aortic stenosis.); Negative for click or gallop Extremity no pedal edema Neuro Neuro Narrative: Alert and oriented x 3 Psych mental status grossly normal Assessment & Plan Assessment/Plan (1) Tachycardia: PLAN: Patient's heart rate has come under better control with addition of verapamil 120 mg 3 times daily. She also remains on IV amiodarone she is fully anticoagulated with Lovenox. The patient has Pseudomonas growing in her sputum. She continues to have respiratory issues but it appears that her air exchange has improved over the last 24 hours. We will continue her current medical therapy to control her heart rate. The patient does have some volume overload which is being addressed with diuresis. Her heart rate now runs in the 96-130 bpm range on telemetry that she is in atrial fibrillation at 100 bpm this morning. The patient does have severe aortic stenosis which will be addressed after her infection is documented to be cleared. (2) Aortic valve stenosis: QUALIFIERS: Cardiac valve disease etiology: nonrheumatic Qualified Code(s): I35.0 - Nonrheumatic aortic (valve) stenosis PLAN: Patient's peak gradient is 75 mean gradient is 15 which correlates with severe aortic stenosis. She also has septal hypertrophy with a measurement of 1.8 cm and the septum in the posterior wall is 1.2 cm. This is significant in that when the aortic stenosis is relieved this needs to be monitored closely forleft ventricular outflow tract obstruction physiology. The patient will be evaluated for possible TAVR after her pulmonary issues are resolved and her respiratory status is back to baseline. She may be a candidatefor TAVR but does not appear she would be a surgical candidate. PLAN: Plan 1. Continue current therapy. 2. Will follow-up in the outpatient setting once she is discharged for further evaluation of her aortic valve disease. 3. Continue with rate control and oral anticoagulation as tolerated. Charges/Coding Visit Charges Inpatient E&M: 63108 [facility] Hosp L3 10/03/24 0849 <Electronically signed by Junito Madrid MD> Cosigner Signature (if applicable): CC: ~ Signed [facility] Work Phone: 1(888) 188-394006-10-2025 Progress note [facility] Medical Records Department [address] [place] [address] Progress Note - Cardiology 10/03/24 0840 MR#: [id number] Acct: [id number] Name: DENIA GONZALEZ Rep #:[id number] : 1955 69 From: Junito Madrid MD PCP: Dr. Yoseph Fall MD Status:AD M IN Location: [facility] [id number]- [id number] Subjective Subjective Patient is resting comfortably in the bed this morning. Telemetry shows that her rhythm is now atrial fibrillation with a heart rate of approximately 100 bpm. I did review the patient's situation with her nursing staff. The patient is tolerating full dose Lovenox. Her echocardiogram showed severe aortic stenosis with a peak gradient of 75 mmHg and a mean gradient of 50. Her septal thickness is 1.8 cm posterior wall is 1.2 consistent with some asymmetricseptal hypertrophy. Objective Data Vital Signs: Vital Signs Temp Pulse Resp BP Pulse Ox O2 Del Method O2 Flow Rate 98.9 F 97 20 H 120/73 98 Nasal Cannula 3 10/02/24 22:00 10/03/24 07:40 10/03/24 07:40 10/03/24 07:00 10/03/24 07:40 10/03/24 07:40 10/03/24 07:40 FiO2 30 09/30/24 22:20 Oxygen Flow Rate (L/min) 3 Oxygen Delivery Method Nasal Cannula Weight: 153 lb 7.068 oz Body Mass Index (BMI) 26.3 Intake & Output: Intake and Output for Last 24 Hours 10/01/24 10/02/24 10/03/24 23:59 23:59 23:59 Intake Total 1470 / 1470 1393.20 / 1509.90 333.48 / 333.48 Output Total 700 / 700 Balance 1470 / 1470 1393.20 / 1209.90 -366.52 / -366.52 Lab / Micro Data Attestation: I reviewed the patient's lab results. 10/02/24 07:13 10/02/24 07:13 Labs: Laboratory Results - last 24 hr 10/02/24 09:31: Magnesium 2.1, Troponin T High Sens 23 H, TSH 0.281 L 10/02/24 11:50: Troponin T Hi Sens 2 Hr 23 H 10/02/24 14:15: Troponin T Hi Sens 4Hr 24 H Micro: Microbiology 09/29/24 09:15 Sputum, Expectorated/Coughed Gram Stain - Final 09/29/24 09:15 Sputum, Expectorated/Coughed Respiratory Culture - Final Stenotrophomonas maltophilia Pseudomonas aeruginosa Rhythm Strip Rhythm Strip: A-fib Rate: 100 Cardiology Labs/Tests 10/02/24 09:31: Magnesium 2.1 Rhythm: EKG: ECHO: Stress Test: Cardiac Cath: PCI: CT Surgery: Holter monitor: EPS: PPM: CXR: Chest CT Scan: Radiography Diagnostic Testing: Radiology Impression Echocardiogram 10/02/24 09:04 Interpretation Summary Severe concentric left ventricular hypertrophy. The LV systolic function is normal. EF is 70 %. Stage 1 diastolic dysfunction. Mild tricuspid valve insufficiency. Severely calcified aortic valve. Severe aortic valve stenosis. Mean peak gradient 50 mmHg. Aortic valve area 0.85 cm??. Trivial aortic valve regurgitation. The study was technically difficult. Ordering Physician: Lynne Schafer Referring Physician: MD Eufemia Yoseph Performed By: Saray Torrez RDCS Physical Exam Const alert and oriented x3 HEENT normocephalic Eyes EOMs intact bilaterally Resp normal respiratory effort Auscultation: wheezes expiratory wheezes and throughout (Less prominent than 24 hours ago.), breathsounds absent right (base) and diminished lung sounds diffuse Cardio Rate: tachycardic Rhythm: abnormal rhythm irregularly irregular Heart Sounds: S1 normal, S2 normal and murmur systolic II/ harsh (A cooing holosystolic murmur consistent with aortic stenosis.); Negative for click or gallop Extremity no pedal edema Neuro Neuro Narrative: Alert and oriented x 3 Psych mental status grossly normal Assessment & Plan Assessment/Plan (1) Tachycardia: PLAN: Patient's heart rate has come under better control with addition of verapamil 120 mg 3 times daily. She also remains on IV amiodarone she is fully anticoagulated with Lovenox. The patient has Pseudomonas growing in her sputum. She continues to have respiratory issues but it appears that her air exchange has improved over the last 24 hours. We will continue her current medical therapy to control her heart rate. The patient does have some volume overload which is being addressed with diuresis. Her heart rate now runs in the 96-130 bpm range on telemetry that she is in atrial fibrillation at 100 bpm this morning. The patient does have severe aortic stenosis which will be addressed after her infection is documented to be cleared. (2) Aortic valve stenosis: QUALIFIERS: Cardiac valve disease etiology: nonrheumatic Qualified Code(s): I35.0 - Nonrheumatic aortic (valve) stenosis PLAN: Patient's peak gradient is 75 mean gradient is 15 which correlates with severe aortic stenosis. She also has septal hypertrophy with a measurement of 1.8 cm and the septum in the posterior avila 1.2 cm. This is significant in that when the aortic stenosis is relieved this needs to be monitored closely forleft ventricular outflow tract obstruction physiology. The patient will be evaluated for possible TAVR after her pulmonary issues are resolved and her respiratory status is back to baseline. She may be a candidatefor TAVR but does not appear she would kalee surgical candidate. PLAN: Plan 1. Continue current therapy. 2. Will follow-up in the outpatient setting once she is discharged for further evaluation of her aortic valve disease. 3. Continue with rate control and oral anticoagulation as tolerated. Charges/Coding Visit Charges Inpatient E&M: 93800 [facility] Hosp 10/03/24 0849 Cosigner Signature (if applicable): CC: ~ Signed [facility]06-09-2025 Progress note Author Lynne [facility] Note Date/Time October 02, 2024 6:52p m [facility] Medical Records Department [address] [place] [address] Progress Note 10/02/24 1220 MR#: [id number] Acct: [id number] Name: DENIA GONZALEZ Rep #:[id number] : 1955 69 From: Lynne Schafer MD PCP: Dr. Yoseph Fall MD Status:AD M IN Location: [place] [address]- Subjective Subjective Patient seen and examined. SHe was noted to be tachycardic this morning, with her HR up in the 160s systolic today. It was initially sinus tachycardia, but subsequently appeared to be afib with RVR. She received verapamil last night and also this morning. She admits to feeling short of breath and having palpitations. She is wheezing. She is on 3 L of oxygen. Review of systems otherwise negative.She denies any chest pain and any history of afib. She says her machine that she uses to check her BP at home usually indicates she has an irregular fast heart rhythm, but she has never had it checked out, and does not have a known diagnosis of afib. She was seen in the presence of her nurse. Objective Data Objective Data Vital Signs: Vital Signs Temp Pulse Resp BP Pulse Ox O2 Del Method O2 Flow Rate 97.5 F L 133 H 24 H 104/74 96 Nasal Cannula 3 10/02/24 08:02 10/02/24 10:35 10/02/24 10:35 10/02/24 10:35 10/02/24 10:35 10/02/24 10:35 10/02/24 10:35 FiO2 30 09/30/24 22:20 Oxygen Flow Rate (L/min) 3 Oxygen Delivery Method Nasal Cannula Weight: 153 lb 14.122 oz Body Mass Index (BMI) 26.2 Intake & Output: Intake and Output for Last 24 Hours 09/30/24 10/01/24 10/02/24 23:59 23:59 23:59 Intake Total 990 / 990 1470 / 1470 240 / 240 Balance 990 / 990 1470 / 1470 240 / 240 Lab / Micro Data 10/02/24 07:13 10/02/24 07:13 Labs: Laboratory Results - last 24 hr 10/02/24 07:13: WBC 8.2, RBC 4.81, Hgb 13.4, Hct 40.4, MCV 84.0, MCH 27.9, MCHC 33.2, RDW Std Deviation 39.8, RDW Coeff of Augustin 13.1, Plt Count 172, MPV 9.7, Immature Gran % (Auto) 0.700, Neut % (Auto) 89.8 H, Lymph % (Auto) 6.1 L, [place] %(Auto) 3.3, Eos % (Auto) 0.0, Baso % (Auto) 0.1, Absolute Neuts (auto) 7.3, Absolute Lymphs (auto) 0.50 L, Nucleated RBC % 0, Sodium 138, Potassium 4.4, Chloride 95 L, Carbon Dioxide 34.5 H, Anion Gap 9, BUN 23 H, Creatinine 0.55 L, Estim Creat Clear Calc 63.64, Est GFR (MDRD) Non-Af 99, BUN/Creatinine Ratio 42.5 H, Glucose 113 H, Calcium 8.9 10/02/24 09:31: Magnesium 2.1, Troponin T High Sens 23 H, TSH 0.281 L Micro: Microbiology 09/29/24 09:15 Sputum, Expectorated/Coughed Respiratory Culture - Preliminary Stenotrophomonas maltophilia Pseudomonas aeruginosa 09/29/24 06:05 Mucosa - Nasopharyngeal Respiratory Panel (PCR) - Final 09/29/24 02:30 Mucosa - Nose SARS-CoV-2, Influenza & RSV (PCR) - Final Rhythm Strip Rhythm Strip: Multifocal atrial tachycardia Rate: 150 Physical Exam Const alert and oriented x3 Constitutional Narrative: in mild distress due to the tachycardia HEENT normocephalic, head/scalp atraumatic, moist oral mucous membranes and oropharynxnormal Eyes PERRL and EOMs intact bilaterally Neck supple General: trachea midline Lymph Lymphatic: no lymphedema noted Resp Resp Narrative: mildly diminished breath sounds bibasally, mild wheezing. NO crackles. On 3L of oxygen by nasal canula Cardio S1 normal heart sound, S2 normal heart sound and no murmurs Cardio Narrative: afib with RVR GI normal to inspection, nondistended, normoactive bowel sounds, soft to palpation,non-tender and non-distended Extremity normal capillary refill and no clubbing, cyanosis or edema General Extremity: no tenderness to palpation of joints or extremities Skin General Skin Exam: no breakdown Neuro no focal motor deficits Neuro Narrative: alert, oriented x 3, communicative, moves all extremities spontaneously Motor Exam: general weakness Psych thought process normal and cooperative Appearance: appropriate Assessment & Plan Assessment/Plan (1) Tachycardia: (2) COPD with acute exacerbation: PLAN: Plan #Acute hypoxic and hypercapnic respiratory failure due to COPD exacerbation and pneumonia * sputum cultures growing Pseudomonas * has a history of non-small cell lung cancer. * on IV levaquin * breathing treatment with bronchodilators. Titrate oxygen to maintain sats >90% * Sputum cultures grew stenotrophomonas and Pseudomonas both sensitive to Levaquin #Afib with RVR * Patient was noted to be tachycardic yesterday and was placed on verapamil. This morning her heart rate was in the 160s 170s. EKG showed evidence of A- fib with RVR. * Patient started on amiodarone infusion with bolus * cardiology consulted; per cardiology this may be for multifocal atrial tachycardia * Started on therapeutic Lovenox and 2D echo ordered. Await cardiology evaluation. #Benign essential hypertension * Per cardiology is likely its multifocal atrial tachycardia. Will therefore place him back on p.o. verapamil. #Benign essential hypertension: #ANxiety and depression: On Ativan nightly #Restless leg syndrome: On pramipexole #GERD: on PPI DVT prophylaxis: now on therapeutic lovenox Charges/Coding Visit Charges Inpatient E&M: 48769 Subs Hosp L3 10/02/24 1852 <Electronically signed by Lynne Schafer MD> Lynne Schafer MD Cosigner Signature (if applicable): CC: ~ Signed [facility] Work Phone: [phone]) 361-259406-09-2025 Progress note [facility] Medical Records Department [address] [place] [address] Progress Note 10/02/24 1220 MR#: [id number] Acct: [id number] Name: DENIA GONZALEZ Rep #:[id number] : 1955 69 From: Lynne Schafer MD PCP: Dr. Yoseph Fall MD Status:AD M IN Location: [place] [address] Subjective Subjective Patient seen and examined. SHe was noted to be tachycardic this morning, with her HR up in the 160ssystolic today. It was initially sinus tachycardia, but subsequently appeared to be afib with RVR. She received verapamil last night and also this morning. She admits to feeling short of breath and having palpitations. She is wheezing. She is on 3 L of oxygen. Review of systems otherwise negative.She denies any chest pain and any history of afib. She says her machine that she uses to check her BPat home usually indicates she has an irregular fast heart rhythm, but she has never had it checked out, and does not have a known diagnosis of afib. She was seen in the presence of her nurse. Objective Data Objective Data Vital Signs: Vital Signs Temp Pulse Resp BP Pulse Ox O2 Del Method O2 Flow Rate 97.5 F L 133 H 24 H 104/74 96 Nasal Cannula 3 10/02/24 08:02 10/02/24 10:35 10/02/24 10:35 10/02/24 10:35 10/02/24 10:35 10/02/24 10:35 10/02/24 10:35 FiO2 30 09/30/24 22:20 Oxygen Flow Rate (L/min) 3 Oxygen Delivery Method Nasal Cannula Weight: 153 lb 14.122 oz Body Mass Index (BMI) 26.2 Intake & Output: Intake and Output for Last 24 Hours 09/30/24 10/01/24 10/02/24 23:59 23:59 23:59 Intake Total 990 / 990 1470 / 1470 240 / 240 Balance 990 / 990 1470 / 1470 240 / 240 Lab / Micro Data 10/02/24 07:13 10/02/24 07:13 Labs: Laboratory Results - last 24 hr 10/02/24 07:13: WBC 8.2, RBC 4.81, Hgb 13.4, Hct 40.4, MCV 84.0, MCH 27.9, MCHC 33.2, RDW Std Deviation 39.8, RDW Coeff of Augustin 13.1, Plt Count 172, MPV 9.7, Immature Gran % (Auto) 0.700, Neut % (Auto) 89.8 H, Lymph % (Auto) 6.1 L, [place] %(Auto) 3.3, Eos % (Auto) 0.0, Baso % (Auto) 0.1, Absolute Neuts (auto) 7.3, Absolute Lymphs (auto) 0.50 L, Nucleated RBC % 0, Sodium 138, Potassium 4.4, Chloride 95 L, Carbon Dioxide 34.5 H, Anion Gap 9, BUN 23 H, Creatinine 0.55 L, Estim Creat Clear Calc 63.64,Est GFR (MDRD) Non-Af 99, BUN/Creatinine Ratio 42.5 H, Glucose 113 H, Calcium 8.9 10/02/24 09:31: Magnesium 2.1, Troponin T High Sens 23 H, TSH 0.281 L Micro: Microbiology 09/29/24 09:15 Sputum, Expectorated/Coughed Respiratory Culture - Preliminary Stenotrophomonas maltophilia Pseudomonas aeruginosa 09/29/24 06:05 Mucosa - Nasopharyngeal Respiratory Panel (PCR) - Final 09/29/24 02:30 Mucosa - Nose SARS-CoV-2, Influenza & RSV (PCR) - Final Rhythm Strip Rhythm Strip: Multifocal atrial tachycardia Rate: 150 Physical Exam Const alert and oriented x3 Constitutional Narrative: in mild distress due to the tachycardia HEENT normocephalic, head/scalp atraumatic, moist oral mucous membranes and oropharynxnormal Eyes PERRL and EOMs intact bilaterally Neck supple General: trachea midline Lymph Lymphatic: no lymphedema noted Resp Resp Narrative: mildly diminished breath sounds bibasally, mild wheezing. NO crackles. On 3L of oxygen by nasal canula Cardio S1 normal heart sound, S2 normal heart sound and no murmurs Cardio Narrative: afib with RVR GI normal to inspection, nondistended, normoactive bowel sounds, soft to palpation,non-tender and non-distended Extremity normal capillary refill and no clubbing, cyanosis or edema General Extremity: no tenderness to palpation of joints or extremities Skin General Skin Exam: no breakdown Neuro no focal motor deficits Neuro Narrative: alert, oriented x 3, communicative, moves all extremities spontaneously Motor Exam: general weakness Psych thought process normal and cooperative Appearance: appropriate Assessment & Plan Assessment/Plan (1) Tachycardia: (2) COPD with acute exacerbation: PLAN: Plan #Acute hypoxic and hypercapnic respiratory failure due to COPD exacerbation and pneumonia * sputum cultures growing Pseudomonas * has a history of non-small cell lung cancer. * on IV levaquin * breathing treatment with bronchodilators. Titrate oxygen to maintain sats >90% * Sputum cultures grew stenotrophomonas and Pseudomonas both sensitive to Levaquin #Afib with RVR * Patient was noted to be tachycardic yesterday and was placed on verapamil. This morning her heartrate was in the 160s 170s. EKG showed evidence of A- fib with RVR. * Patient started on amiodarone infusion with bolus * cardiology consulted; per cardiology this may be for multifocal atrial tachycardia * Started on therapeutic Lovenox and 2D echo ordered. Await cardiology evaluation. #Benign essential hypertension * Per cardiology is likely its multifocal atrial tachycardia. Will therefore place him back on p.o.verapamil. #Benign essential hypertension: #ANxiety and depression: On Ativan nightly #Restless leg syndrome: On pramipexole #GERD: on PPI DVT prophylaxis: now on therapeutic lovenox Charges/Coding Visit Charges Inpatient E&M: 21124 [facility] Hosp 10/02/24 6732 Lynne Schafer MD Cosigner Signature (if applicable): CC: ~ Signed [facility]06-09-2025 Consult note Author Junito Madrid [facility] Note Date/Time October 02, 2024 10:13 am [facility] Medical Records Department [address] [place] [address] Consultation - Cardiology 10/02/24 1000 MR#: [id number] Acct: [id number] Name: DENIA GONZALEZ Rep #:[id number] : 1955 69 From: Junito Madrid MD PCP: Dr. Yoseph Fall MD Status:AD M IN Location: [place] [address] Assessment & Plan Assessment/Plan (1) Tachycardia: PLAN: Patient's rhythm appears to be multifocal atrial tachycardia. She does not have a known history of atrial fibrillation to her knowledge. However, her knowledge of her past medical history seems limited. The patient has been on verapamil long-term which would suggest that this has been MAT in the past and had been treated with verapamil. The patient has been instituted on IV amiodarone. I would have this bag infusedand get her back on her p.o. verapamil will use shorter acting given her somewhat labile blood pressure and infectious process. The ideal treatment is to control the patient's respiratory status as this is driving her tachycardia. 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 And she has gram-negative rods in her sputum presumably Pseudomonas on this admission. Further treatment and evaluation per the primary service. PLAN: Plan 1. At this point in time would recommend continuing IV amiodarone until this infusion is complete. 2. Will reinstitute short acting verapamil for rate control of the presumed MAT. 3. At this point in time I do not feel that oral anticoagulation is indicated. 4. Will obtain 2D echocardiogram once we get the heart rate a little bit bettercontrolled later today. HPI Consult Data Date of Consult: 10/02/24 HPI Narrative Reason for Consultation: Tachycardia presumed atrial fibrillation. HPI Narrative: DENIA GONZALEZ, is a 69 F who presents with respiratory insufficiency. The patient was diagnosed with pneumonia and carries a history of non-small cell carcinoma of the lung. She also has longstanding COPD and is on home oxygen therapy. The patient's BNP on admission was 518 which was within normal limits. The patient has a history of tachycardia being placed on verapamil in the past. The patient presented emergency department on September 29, 2024. She had had progressive shortness of breath and decompensation of her respiratory status despite increasing prednisone and nebulizer treatments in her home environment. She is also noted a productive cough. Patient is status post right lung lobectomy for non-small cell carcinoma. ECG on admission showed right atrial enlargement and what appears to be either sinus rhythm with frequent PACs or multifocal atrial tachycardia. Repeat ECG when her heart rate went up this morning into the 150 range appears to be multifocal atrial tachycardia or atrial fibrillation. He is very difficult to tell on the rhythm strip on her twelve-lead. The patient's struggling with her respiratory status this morning. The patient does not have a history of atrial fibrillation to her knowledge. She has not seen a specialist in a long time by her report. She has no known cardiovascular issues that she is aware of. [facility] Medical History RLS (restless legs syndrome) History of ETOH abuse Chronic hypoxic respiratory failure, on home oxygen therapy COPD (chronic obstructive pulmonary disease) Anxiety Depression Smoker Asthma Hypertension Migraines Medical History no medical history Home Medications ?Medication ?Instructions ?Recorded ?Last Taken ?Type albuterol sulfate 90 mcg/actuation 1 - 2 puff inhalati on Q4H PRN PRN 04/18/13 09/23/14 History aerosol inhaler (Ventolin HFA) Bronchodialation cyclobenzaprine 10 mg tablet 10 mg PO Q12H pain 09/23/14 History 10 MG fluticasone propionate 50 1 spray intranasal DAILY porfirio al 04/18/13 09/23/14 History mcg/actuation nasal congestion spray,suspension montelukast 10 mg tablet 10 mg PO DAILY allergies 09/23/14 History 10 MG omeprazole 20 mg capsule,delayed 20 mg PO DAILY heart burn 04/18/13 09/23/14 History release 20 MG tiotropium bromide 18 mcg capsule 1 puff inhalation DA BINU wheezing 04/18/13 09/23/14 History with inhalation device (Spiriva with HandiHaler) verapamil 240 mg tablet,extended 360 mg PO DAILY heart 04/18/13 09/23/14 History release 360 MG Oxygen, Home [Home Oxygen] 2.5 lpm PRN PRN Dyspnea 09/23/14 History sertraline 100 mg tablet 100 mg PO DAILY insomina 09/23/14 History fluticasone 500 mcg-salmeterol 50 1 puff inhalation BI D shortness of 10/26/13 09/23/14 Rx mcg/dose blistr powdr for breath ##1 inhalation (Advair Diskus) Ropinirole Hcl 0.25 mg PO QHS restless legs 09/23/14 Unknown History prednisone 10 mg tablet 15 mg PO PRN PRN FLARE UPS 1 06/04/14 Unknown History ipratropium 0.5 mg-albuterol 3 mg 3 ml inhalation Q4HW A.RT wheezing 05/13/16 Unknown Rx (2.5 mg base)/3 mL nebulization ##30 soln lorazepam 0.5 mg tablet 0.5 mg PO QHS anxiety #7 tab s 05/05/20 Unknown Rx nicotine (polacrilex) 2 mg gum 2 mg buccal Q2H to stop smoking 07/22/23 Unknown Rx (Nicorette) #20 ea cholecalciferol (vitamin D3) 50 50 mcg PO DAILY vitami n 10/18/23 Unknown History mcg (2,000 unit) capsule [...] / Time No Known Allergies Allergy Verified 09/29/24 02:19 Family History Mother Hypertension Throat cancer Father Hypertension Stomach cancer Family History no significant family his Surgical History H/O exploratory laparotomy History of lung surgery History of cholecystectomy Social History household members: significant other and none housing: apartment Smoking Status: Former smoker alcohol intake: former substance use type: does not use ROS Constitutional Constitutional: Reports as per HPI Eyes Eyes: Reports systems reviewed and no addt'l complaints, except as documented ENT HEENT: Reports systems reviewed and no addt'l complaints, except as documented Cardiovascular Cardiovascular: Reports as per HPI Respiratory/Chest Respiratory/Chest: Reports as per HPI Gastrointestinal Gastrointestinal: Reports systems reviewed and no addt'l complaints, except as documented Genitourinary Genitourinary: Reports systems reviewed and no addt'l complaints, except as documented Musculoskeletal Musculoskeletal: Reports systems reviewed and no addt'l complaints, except as documented Integumentary Integumentary: Reports systems reviewed and no addt'l complaints, except as documented Neurologic Neurologic: Reports systems reviewed and no addt'l complaints, except as documented Psychiatric Psychiatric: Reports systems reviewed and no addt'l complaints, except as documented Endocrine Endocrinology: Reports systems reviewed and no addt'l complaints, except as documented Hematologic/Lymphatic Hematologic/Lymphatic: Reports systems reviewed and no addt'l complaints, exceptas documented Allergic/Immunologic Allergic/Immunologic: Reports systems reviewed and no addt'l complaints, except as documented Physical Exam Narrative Patient resting at 30 degrees in the bed tachypneic with conversational dyspnea. Const alert and oriented x3 HEENT normocephalic Eyes EOMs intact bilaterally Neck no JVD Chest Chest Narrative: Barrel chested. Resp Resp Narrative: Tachypneic with poor air movement. Auscultation: wheezes throughout, breath sounds absent right and diminished lungsounds left lower Cardio Rate: tachycardic Rhythm: abnormal rhythm irregularly irregular Heart Sounds: S1 normal, S2 normal and murmur systolic II/ soft mid right sternal border; Negative for click or gallop GI soft to palpation Extremity no pedal edema Neuro Neuro Narrative: Alert and oriented x 3 Psych mental status grossly normal Risk Stratification Risk Stratification Applicable: No Charges/Coding Visit Charges Inpatient E&M: 31700 Init Hosp L2 Objective Data Vital Signs: Vital Signs Temp Pulse Resp BP Pulse Ox O2 Del Method O2 Flow Rate 97.5 F L 56 L 18 121/102 H 96 Nasal Cannula 3 10/02/24 08:02 10/02/24 09:04 10/02/24 09:04 10/02/24 09:04 10/02/24 09:04 10/02/24 09:04 10/02/24 09:04 FiO2 30 09/30/24 22:20 Oxygen Flow Rate (L/min) 3 Oxygen Delivery Method Nasal Cannula Weight: 153 lb 14.122 oz Body Mass Index (BMI) 26.2 Intake & Output: Intake and Output for Last 24 Hours 09/30/24 10/01/24 10/02/24 23:59 23:59 23:59 Intake Total 990 / 990 1470 / 1470 240 / 240 Balance 990 / 990 1470 / 1470 240 / 240 Lab / Micro Data 10/02/24 07:13 10/02/24 07:13 Labs: Laboratory Results - last 24 hr 10/02/24 07:13: WBC 8.2, RBC 4.81, Hgb 13.4, Hct 40.4, MCV 84.0, MCH 27.9, MCHC 33.2, RDW Std Deviation 39.8, RDW Coeff of Augustin 13.1, Plt Count 172, MPV 9.7, Immature Gran % (Auto) 0.700, Neut % (Auto) 89.8 H, Lymph % (Auto) 6.1 L, [place] %(Auto) 3.3, Eos % (Auto) 0.0, Baso % (Auto) 0.1, Absolute Neuts (auto) 7.3, Absolute Lymphs (auto) 0.50 L, Nucleated RBC % 0, Sodium 138, Potassium 4.4, Chloride 95 L, Carbon Dioxide 34.5 H, Anion Gap 9, BUN 23 H, Creatinine 0.55 L, Estim Creat Clear Calc 63.64, Est GFR (MDRD) Non-Af 99, BUN/Creatinine Ratio 42.5 H, Glucose 113 H, Calcium 8.9 Micro: Microbiology 09/29/24 09:15 Sputum, Expectorated/Coughed Respiratory Culture - Preliminary Stenotrophomonas maltophilia GNR Poss Pseudomonas sp Rhythm Strip Rhythm Strip: Multifocal atrial tachycardia Rate: 150 Cardiology Labs/Tests 10/02/24 07:13: WBC 8.2, RBC 4.81, Hgb 13.4, Hct 40.4, MCV 84.0, MCH 27.9, MCHC 33.2, Plt Count 172, MPV 9.7, Immature Gran % (Auto) 0.700, Neut % (Auto) 89.8 H, Lymph % (Auto) 6.1 L, [place] % (Auto) 3.3, Eos % (Auto) 0.0, Baso % (Auto) 0.1, Absolute Neuts (auto) 7.3, Nucleated RBC % 0, Sodium 138, Potassium 4.4, Chloride 95 L, Carbon Dioxide 34.5 H, Anion Gap 9, BUN 23 H, Creatinine 0.55 L, Est GFR (MDRD) Non-Af 99, BUN/Creatinine Ratio 42.5 H, Glucose 113 H, Calcium 8.9 Rhythm: EKG: ECHO: Stress Test: Cardiac Cath: PCI: CT Surgery: Holter monitor: EPS: PPM: CXR: Chest CT Scan: 10/02/24 1013 <Electronically signed by Junito Madrid MD> Cosigner Signature (if applicable): CC: Dr. Yoseph Fall MD~ Signed [facility] Work Phone: [phone]) [phone] Consult note [facility] Medical Records Department [address] [place] [id number] Consultation - Cardiology 10/02/24 1000 MR#: [id number] Acct: [id number] Name: DENIA GONZALEZ Rep #:[id number] : 1955 69 From: Junito Madrid MD PCP: Dr. Yoseph Fall MD Status:AD M IN Location: [place] [id number] Assessment & Plan Assessment/Plan (1) Tachycardia: PLAN: Patient's rhythm appears to be multifocal atrial tachycardia. She does not have a known history of atrial fibrillation to her knowledge. However, her knowledge of her past medical history seemslimited. The patient has been on verapamil long-term which would suggest that this has been MAT in the past and had been treated with verapamil. The patient has been instituted on IV amiodarone. I would have this bag infusedand get her back on her p.o. verapamil will use shorter acting given her somewhat labile blood pressure and infectious process. The ideal treatment is to control the patient's respiratory status as this is driving her tachycardia. 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 And she has gram-negative rods in her sputum presumably Pseudomonas on this admission. Further treatment and evaluation per the primary service. PLAN: Plan 1. At this point in time would recommend continuing IV amiodarone until this infusion is complete. 2. Will reinstitute short acting verapamil for rate control of the presumed MAT. 3. At this point in time I do not feel that oral anticoagulation is indicated. 4. Will obtain 2D echocardiogram once we get the heart rate a little bit bettercontrolled later today. HPI Consult Data Date of Consult: 10/02/24 HPI Narrative Reason for Consultation: Tachycardia presumed atrial fibrillation. HPI Narrative: DENIA GONZALEZ, is a 69 F who presents with respiratory insufficiency. The patient was diagnosed withpneumonia and carries a history of non-small cell carcinoma of the lung. She also has longstanding COPD and is on home oxygen therapy. The patient's BNP on admission was 518 which was within normal limits. The patient has a history of tachycardia being placed on verapamil in the past. The patient presented emergency department on September 29, 2024. She had had progressive shortness of breath and decompensation of her respiratory status despite increasing prednisone and nebulizer treatments in her home environment. She is also noted a productive cough. Patient is status post right lung lobectomy for non-small cell carcinoma. ECG on admission showed right atrial enlargement and what appears to be either sinus rhythm with frequent PACs or multifocal atrial tachycardia. Repeat ECG when her heart rate went up this morning into the 150 range appears to be multifocal atrial tachycardia or atrial fibrillation. He is very difficult to tell on the rhythm strip on her twelve-lead. The patient's struggling with her respiratory status this morning. The patient does not have a history of atrial fibrillation to her knowledge. She has not seen a specialist in a long time by her report. She has no known cardiovascular issues that she is aware of. [facility] Medical History RLS (restless legs syndrome) History of ETOH abuse Chronic hypoxic respiratory failure, on home oxygen therapy COPD (chronic obstructive pulmonary disease) Anxiety Depression Smoker Asthma Hypertension Migraines Medical History no medical history Home Medications ?Medication ?Instructions ?Recorded ?Last Taken ?Type albuterol sulfate 90 mcg/actuation 1 - 2 puff inhalati on Q4H PRN PRN 04/18/13 09/23/14 History aerosol inhaler (Ventolin HFA) Bronchodialation cyclobenzaprine 10 mg tablet 10 mg PO Q12H pain 09/23/14 History 10 MG fluticasone propionate 50 1 spray intranasal DAILY porfirio al 04/18/13 09/23/14 History mcg/actuation nasal congestion spray,suspension montelukast 10 mg tablet 10 mg PO DAILY allergies 09/23/14 History 10 MG omeprazole 20 mg capsule,delayed 20 mg PO DAILY heart burn 04/18/13 09/23/14 History release 20 MG tiotropium bromide 18 mcg capsule 1 puff inhalation DA BINU wheezing 04/18/13 09/23/14 History with inhalation device (Spiriva with HandiHaler) verapamil 240 mg tablet,extended 360 mg PO DAILY heart 04/18/13 09/23/14 History release 360 MG Oxygen, Home [Home Oxygen] 2.5 lpm PRN PRN Dyspnea 09/23/14 History sertraline 100 mg tablet 100 mg PO DAILY insomina 09/23/14 History fluticasone 500 mcg-salmeterol 50 1 puff inhalation BI D shortness of 10/26/13 09/23/14 Rx mcg/dose blistr powdr for breath ##1 inhalation (Advair Diskus) Ropinirole Hcl 0.25 mg PO QHS restless legs 09/23/14 Unknown History prednisone 10 mg tablet 15 mg PO PRN PRN FLARE UPS 1 06/04/14 Unknown History ipratropium 0.5 mg-albuterol 3 mg 3 ml inhalation Q4HW A.RT wheezing 05/13/16 Unknown Rx (2.5 mg base)/3 mL nebulization ##30 soln lorazepam 0.5 mg tablet 0.5 mg PO QHS anxiety #7 tab s 05/05/20 Unknown Rx nicotine (polacrilex) 2 mg gum 2 mg buccal Q2H to stop smoking 07/22/23 Unknown Rx (Nicorette) #20 ea cholecalciferol (vitamin D3) 50 50 mcg PO DAILY vitami n 10/18/23 Unknown History mcg (2,000 unit) capsule (Vitamin D3) ipratropium 0.5 mg-albuterol 3 mg 3 ml inhalation Q6H PRN shortness 06/24/24 Unknown Rx (2.5 mg base)/3 mL nebulization of breath or wheezing #180 mL soln prednisone 20 mg tablet 40 mg (2 x 20 mg) PO DAILY 5 days 10/18/23 Unknown Rx #10 tabs Allergy/AdvReac Type Severity Reaction Status Date / Time No Known Allergies Allergy Verified 09/29/24 02:19 Family History Mother Hypertension Throat cancer Father Hypertension Stomach cancer Family History no significant family his Surgical History H/O exploratory laparotomy History of lung surgery History of cholecystectomy Social History household members: significant other and none housing: apartment Smoking Status: Former smoker alcohol intake: former substance use type: does not use ROS Constitutional Constitutional: Reports as per HPI Eyes Eyes: Reports systems reviewed and no addt'l complaints, except as documented ENT HEENT: Reports systems reviewed and no addt'l complaints, except as documented Cardiovascular Cardiovascular: Reports as per HPI Respiratory/Chest Respiratory/Chest: Reports as per HPI Gastrointestinal Gastrointestinal: Reports systems reviewed and no addt'l complaints, except as documented Genitourinary Genitourinary: Reports systems reviewed and no addt'l complaints, except as documented Musculoskeletal Musculoskeletal: Reports systems reviewed and no addt'l complaints, except as documented Integumentary Integumentary: Reports systems reviewed and no addt'l complaints, except as documented Neurologic Neurologic: Reports systems reviewed and no addt'l complaints, except as documented Psychiatric Psychiatric: Reports systems reviewed and no addt'l complaints, except as documented Endocrine Endocrinology: Reports systems reviewed and no addt'l complaints, except as documented Hematologic/Lymphatic Hematologic/Lymphatic: Reports systems reviewed and no addt'l complaints, exceptas documented Allergic/Immunologic Allergic/Immunologic: Reports systems reviewed and no addt'l complaints, except as documented Physical Exam Narrative Patient resting at 30 degrees in the bed tachypneic with conversational dyspnea. Const alert and oriented x3 HEENT normocephalic Eyes EOMs intact bilaterally Neck no JVD Chest Chest Narrative: Barrel chested. Resp Resp Narrative: Tachypneic with poor air movement. Auscultation: wheezes throughout, breath sounds absent right and diminished lungsounds left lower Cardio Rate: tachycardic Rhythm: abnormal rhythm irregularly irregular Heart Sounds: S1 normal, S2 normal and murmur systolic II/ soft mid right sternal border; Negative for click or gallop GI soft to palpation Extremity no pedal edema Neuro Neuro Narrative: Alert and oriented x 3 Psych mental status grossly normal Risk Stratification Risk Stratification Applicable: No Charges/Coding Visit Charges Inpatient E&M: 56712 Init Hosp L2 Objective Data Vital Signs: Vital Signs Temp Pulse Resp BP Pulse Ox O2 Del Method O2 Flow Rate 97.5 F L 56 L 18 121/102 H 96 Nasal Cannula 3 10/02/24 08:02 10/02/24 09:04 10/02/24 09:04 10/02/24 09:04 10/02/24 09:04 10/02/24 09:04 10/02/24 09:04 FiO2 30 09/30/24 22:20 Oxygen Flow Rate (L/min) 3 Oxygen Delivery Method Nasal Cannula Weight: 153 lb 14.122 oz Body Mass Index (BMI) 26.2 Intake & Output: Intake and Output for Last 24 Hours 09/30/24 10/01/24 10/02/24 23:59 23:59 23:59 Intake Total 990 / 990 1470 / 1470 240 / 240 Balance 990 / 990 1470 / 1470 240 / 240 Lab / Micro Data 10/02/24 07:13 10/02/24 07:13 Labs: Laboratory Results - last 24 hr 10/02/24 07:13: WBC 8.2, RBC 4.81, Hgb 13.4, Hct 40.4, MCV 84.0, MCH 27.9, MCHC 33.2, RDW Std Deviation 39.8, RDW Coeff of Augustin 13.1, Plt Count 172, MPV 9.7, Immature Gran % (Auto) 0.700, Neut % (Auto) 89.8 H, Lymph % (Auto) 6.1 L, [place] %(Auto) 3.3, Eos % (Auto) 0.0, Baso % (Auto) 0.1, Absolute Neuts (auto) 7.3, Absolute Lymphs (auto) 0.50 L, Nucleated RBC % 0, Sodium 138, Potassium 4.4, Chloride 95 L, Carbon Dioxide 34.5 H, Anion Gap 9, BUN 23 H, Creatinine 0.55 L, Estim Creat Clear Calc 63.64,Est GFR (MDRD) Non-Af 99, BUN/Creatinine Ratio 42.5 H, Glucose 113 H, Calcium 8.9 Micro: Microbiology 09/29/24 09:15 Sputum, Expectorated/Coughed Respiratory Culture - Preliminary Stenotrophomonas maltophilia GNR Poss Pseudomonas sp Rhythm Strip Rhythm Strip: Multifocal atrial tachycardia Rate: 150 Cardiology Labs/Tests 10/02/24 07:13: WBC 8.2, RBC 4.81, Hgb 13.4, Hct 40.4, MCV 84.0, MCH 27.9, MCHC 33.2, Plt Count 172, MPV 9.7, Immature Gran % (Auto) 0.700, Neut % (Auto) 89.8 H, Lymph % (Auto) 6.1 L, [place] % (Auto) 3.3, Eos % (Auto) 0.0, Baso % (Auto) 0.1, Absolute Neuts (auto) 7.3, Nucleated RBC % 0, Sodium 138, Potassium 4.4, Chloride 95 L, Carbon Dioxide 34.5 H, Anion Gap 9, BUN 23 H, Creatinine 0.55 L, Est GFR (MDRD) Non-Af 99, BUN/Creatinine Ratio 42.5 H, Glucose 113 H, Calcium 8.9 Rhythm: EKG: ECHO: Stress Test: Cardiac Cath: PCI: CT Surgery: Holter monitor: EPS: PPM: CXR: Chest CT Scan: 10/02/24 1013 Cosigner Signature (if applicable): CC: Dr. Yoseph Fall MD~ Signed [facility]06-08-2025 Progress note Author Dionne Porter [facility] Note Date/Time October 01, 2024 9:42p m [facility] Medical Records Department [address] [place] [address] Progress Note - Hospitalist 10/01/24 2141 MR#: [id number] Acct: [id number] Name: DENIA GONZALEZ Rep #:[id number] : 1955 69 From: Dionne Porter MD PCP: Dr. Yoseph Fall MD Status:AD M IN Location: [place] [address] Hospitalist Note Patient with episode tacycardia, rate 160s, went back down to 120s, changing to ipratropium only instead of duonebs, dose with her verapamil now and will assureno active EtOH usage history as prior EtOH abuse. 10/01/242141 <Electronically signed by Dionne Porter MD> Cosigner Signature (if applicable): CC: ~ Signed [facility] Work Phone: 1(566) 278-842206-08-2025 Progress note [facility] Medical Records Department [address] [place] [address] Progress Note - Hospitalist 10/01/242140 MR#: [id number] Acct: [id number] Name: DENIA GONZALEZ Rep #:[id number] : 1955 69 From: Dionne Porter MD PCP: Dr. Yoseph Fall MD Status:AD M IN Location: [place] [address] Hospitalist Note Patient with episode tacycardia, rate 160s, went back down to 120s, changing to ipratropium only instead of duonebs, dose with her verapamil now and will assureno active EtOH usage history as prior EtOH abuse. 10/01/242141 Cosigner Signature (if applicable): CC: ~ Signed [facility]06-08-2025 Progress note Author Jan Bolanos [facility] Note Date/Time October 01, 2024 10:49 am [facility] Medical Records Department [address] [place] [address] Progress Note - Hospitalist 10/01/24 1043 MR#: [id number] Acct: [id number] Name: DENIA GONZALEZ Rep #:[id number] : 1955 69 From: Jan brennan MD PCP: Dr. Yoseph Fall MD Status:AD M IN Location: [place] [address] Subjective Subjective Feels okay but not quite back to baseline. Objective Data Objective Data Vital Signs: Vital Signs Temp Pulse Resp BP Pulse Ox O2 Del Method O2 Flow Rate 97.1 F L 98 18 130/70 H 95 Nasal Cannula 3 10/01/24 08:15 10/01/24 08:15 10/01/24 08:15 10/01/24 08:15 10/01/24 08:15 10/01/24 08:15 10/01/24 08:15 FiO2 30 09/30/24 22:20 Oxygen Flow Rate (L/min) 3 Oxygen Delivery Method Nasal Cannula Weight: 158 lb 8.198 oz Body Mass Index (BMI) 27.0 Intake & Output: Intake and Output for Last 24 Hours 09/30/24 10/01/24 10/02/24 03:59 03:59 03:59 Intake Total 1000 / 1000 990 / 990 Output Total 0 / 0 Balance 1000 / 1000 990 / 990 Lab / Micro Data 10/01/24 04:21 10/01/24 04:21 Labs: Laboratory Results - last 24 hr 10/01/24 04:21: WBC 8.5, RBC 4.90, Hgb 13.5, Hct 40.9, MCV 83.5, MCH 27.6, MCHC 33.0, RDW Std Deviation 39.2, RDW Coeff of Augustin 12.9, Plt Count 176, MPV 9.8, Immature Gran % (Auto) 0.500, Neut % (Auto) 89.0 H, Lymph % (Auto) 6.8 L, [place] %(Auto) 3.6, Eos % (Auto) 0.0, Baso % (Auto) 0.1, Absolute Neuts (auto) 7.6, Absolute Lymphs (auto) 0.58 L, Nucleated RBC % 0, Sodium 138, Potassium 4.1, Chloride 94 L, Carbon Dioxide 34.2 H, Anion Gap 10, BUN 21 H, Creatinine 0.59 L, Estim Creat Clear Calc 65.06, Est GFR (MDRD) Non-Af 97, BUN/Creatinine Ratio 35.9 H, Glucose 111 H, Calcium 9.2 Micro: Microbiology 09/29/24 09:15 Sputum, Expectorated/Coughed Respiratory Culture - Preliminary GNR Poss Pseudomonas sp 09/29/24 06:05 Mucosa - Nasopharyngeal Respiratory Panel (PCR) - Final 09/29/24 02:30 Mucosa - Nose SARS-CoV-2, Influenza & RSV (PCR) - Final Physical Exam Narrative General: Alert, Oriented x3, Cooperative, No apparent distress HEENT: Atraumatic, PERRLA, EOMI, Normocephalic Oral: Moist Mucosa Neck: Supple, No JVD Lungs: Diminished, Normal air movement, No rhonchi, scattered wheeze, No rales Cardiovascular: Regular rate, Regular Rhythm, Normal S1, Normal S2, No [...] Plan Assessment/Plan (1) COPD with acute exacerbation: PLAN: Plan 1. Acute hypercapnic on chronic hypoxic respiratory failure secondary to COPD exacerbation due to pneumonia secondary to Pseudomonas/history of non-small celllung cancer status post right lung lobectomy ? pCO2 on ABG on admission was 79 however she refuses to wear her BiPAP for extended periods, she was able to wear for about 2 hours last night ? Continue with breathing treatments and steroids ?No consolidation, fever, leukocytosis, however sputum cultures demonstrating possible Pseudomonas ? Continue with Levaquin ? Will attempt an ambulatory pulse ox 2. Essential HTN ? Continue with her home blood pressure medications ? Will monitor make adjustments as necessary 3. Anxiety/depression/restless leg syndrome ? Stable ? Continue with her home medication 4. GERD ? Stable ? Continue with PPI DVT: Lovenox Charges/Coding Visit Charges Inpatient E&M: 68621 Subs Hosp L2 10/01/24 1049 <Electronically signed by Jan Bolanos MD> Cosigner Signature (if applicable): CC: ~ Signed [facility] Work Phone: 1(202) 112-304406-08-2025 Progress note [facility] Medical Records Department [address] [place] [address] Progress Note - Hospitalist 10/01/24 1043 MR#: [id number] Acct: [id number] Name: DENIA GONZALEZ Rep #:[id number] : 1955 69 From: Jan brennan MD PCP: Dr. Yoseph Fall MD Status:AD M IN Location: [place] [address] Subjective Subjective Feels okay but not quite back to baseline. Objective Data Objective Data Vital Signs: Vital Signs Temp Pulse Resp BP Pulse Ox O2 Del Method O2 Flow Rate 97.1 F L 98 18 130/70 H 95 Nasal Cannula 3 10/01/24 08:15 10/01/24 08:15 10/01/24 08:15 10/01/24 08:15 10/01/24 08:15 10/01/24 08:15 10/01/24 08:15 FiO2 30 09/30/24 22:20 Oxygen Flow Rate (L/min) 3 Oxygen Delivery Method Nasal Cannula Weight: 158 lb 8.198 oz Body Mass Index (BMI) 27.0 Intake & Output: Intake and Output for Last 24 Hours 09/30/24 10/01/24 10/02/24 03:59 03:59 03:59 Intake Total 1000 / 1000 990 / 990 Output Total 0 / 0 Balance 1000 / 1000 990 / 990 Lab / Micro Data 10/01/24 04:21 10/01/24 04:21 Labs: Laboratory Results - last 24 hr 10/01/24 04:21: WBC 8.5, RBC 4.90, Hgb 13.5, Hct 40.9, MCV 83.5, MCH 27.6, MCHC 33.0, RDW Std Deviation 39.2, RDW Coeff of Augustin 12.9, Plt Count 176, MPV 9.8, Immature Gran % (Auto) 0.500, Neut % (Auto) 89.0 H, Lymph % (Auto) 6.8 L, [place] %(Auto) 3.6, Eos % (Auto) 0.0, Baso % (Auto) 0.1, Absolute Neuts (auto) 7.6, Absolute Lymphs (auto) 0.58 L, Nucleated RBC % 0, Sodium 138, Potassium 4.1, Chloride 94 L, Carbon Dioxide 34.2 H, Anion Gap 10, BUN 21 H, Creatinine 0.59 L, Estim Creat Clear Calc 65.06, Est GFR (MDRD) Non-Af 97, BUN/Creatinine Ratio 35.9 H, Glucose 111 H, Calcium 9.2 Micro: Microbiology 09/29/24 09:15 Sputum, Expectorated/Coughed Respiratory Culture - Preliminary GNR Poss Pseudomonas sp 09/29/24 06:05 Mucosa - Nasopharyngeal Respiratory Panel (PCR) - Final 09/29/24 02:30 Mucosa - Nose SARS-CoV-2, Influenza & RSV (PCR) - Final Physical Exam Narrative General: Alert, Oriented x3, Cooperative, No apparent distress HEENT: Atraumatic, PERRLA, EOMI, Normocephalic Oral: Moist Mucosa Neck: Supple, No JVD Lungs: Diminished, Normal air movement, No rhonchi, scattered wheeze, No rales Cardiovascular: Regular rate, Regular Rhythm, Normal S1, Normal S2, No [...] Plan Assessment/Plan (1) COPD with acute exacerbation: PLAN: Plan 1. Acute hypercapnic on chronic hypoxic respiratory failure secondary to COPD exacerbation due to pneumonia secondary to Pseudomonas/history of non-small celllung cancer status post right lung lobectomy ? pCO2 on ABG on admission was 79 however she refuses to wear her BiPAP for extended periods, she was able to wear for about 2 hours last night ? Continue with breathing treatments and steroids ?No consolidation, fever, leukocytosis, however sputum cultures demonstrating possible Pseudomonas ? Continue with Levaquin ? Will attempt an ambulatory pulse ox 2. Essential HTN ? Continue with her home blood pressure medications ? Will monitor make adjustments as necessary 3. Anxiety/depression/restless leg syndrome ? Stable ? Continue with her home medication 4. GERD ? Stable ? Continue with PPI DVT: Lovenox Charges/Coding Visit Charges Inpatient E&M: 21865 Subs Hosp L2 10/01/24 1049 Cosigner Signature (if applicable): CC: ~ Signed [facility]06-07-2025 Progress note Author Jan Bolanos [facility] Note Date/Time September 30, 2024 1:23p m [facility] Medical Records Department [address] [facility] [place] [address] Progress Note - Hospitalist 09/30/24 1220 MR#: [id number] Acct: [id number] Name: DENIA GONZALEZ Rep #:[id number] : 1955 69 From: Jan brennan MD PCP: Dr. Yoseph Fall MD Status:AD M IN Location: [place] [address]- Subjective Subjective No issues overnight, she still maintaining her oxygen saturations on 2 to 3 L nasal cannula. She has very little tolerance for BiPAP despite the fact that she is fairly significantly hypercapnic Objective Data Objective Data Vital Signs: Vital Signs Temp Pulse Resp BP Pulse Ox O2 Del Method O2 Flow Rate 97.7 F L 116 H 20 H 141/80 H 95 Nasal Cannula 3 09/30/24 09:41 09/30/24 10:15 09/30/24 10:15 09/30/24 09:41 09/30/24 09:41 09/30/24 10:00 09/30/24 10:00 FiO2 30 09/30/24 01:23 Oxygen Flow Rate (L/min) 3 Oxygen Delivery Method Nasal Cannula Weight: 161 lb 6.054 oz Body Mass Index (BMI) 27.5 Intake & Output: Intake and Output for Last 24 Hours 09/29/24 09/30/24 10/01/24 03:59 03:59 03:59 Intake Total 1000 / 1000 Output Total 0 / 0 Balance 1000 / 1000 Lab / Micro Data 09/30/24 07:00 09/30/24 07:00 Labs: Laboratory Results - last 24 hr 09/30/24 07:00: WBC 7.7, RBC 4.52, Hgb 12.6, Hct 38.4, MCV 85.0, MCH 27.9, MCHC 32.8, RDW Std Deviation 39.9, RDW Coeff of Augustin 13.0, Plt Count 177, MPV 10.0, Immature Gran % (Auto) 0.400, Neut % (Auto) 88.1 H, Lymph % (Auto) 8.0 L, [place] %(Auto) 3.5, Eos % (Auto) 0.0, Baso % (Auto) 0.0, Absolute Neuts (auto) 6.8, Absolute Lymphs (auto) 0.61 L, Nucleated RBC % 0, Sodium 138, Potassium 4.6, Chloride 95 L, Carbon Dioxide 33.3 H, Anion Gap 10, BUN 19, Creatinine 0.58 L, Estim Creat Clear Calc 65.06, Est GFR (MDRD) Non-Af 98, BUN/Creatinine Ratio 32.5 H, Glucose 127 H, Calcium 9.0, Total Bilirubin 0.27, AST 17, ALT 9, Alkaline Phosphatase 60, Total Protein 6.3, Albumin 3.8, Globulin 2.5, Albumin/Globulin Ratio 1.5 Micro: Microbiology 09/29/24 06:05 Mucosa - Nasopharyngeal Respiratory Panel (PCR) - Final 09/29/24 02:30 Mucosa - Nose SARS-CoV-2, Influenza & RSV (PCR) - Final Physical Exam Narrative General: Alert, Oriented x3, Cooperative, No apparent distress HEENT: Atraumatic, PERRLA, EOMI, Normocephalic Oral: Moist Mucosa Neck: Supple, No JVD Lungs: Diminished, Normal air movement, No rhonchi, wheeze, No rales Cardiovascular: Regular rate, Regular Rhythm, Normal S1, Normal S2, No [...] Plan Assessment/Plan (1) COPD with acute exacerbation: PLAN: Plan 1. Acute hypercapnic on chronic hypoxic respiratory failure secondary to COPD exacerbation/history of non-small cell lung cancer status post right lung lobectomy ? pCO2 on ABG on admission was 79 however she refuses to wear her BiPAP ? Continue with breathing treatments and steroids ? No signs of an infectious etiology on imaging with no fever or leukocytosis however sputum cultures demonstrating possible Pseudomonas ? Continue with Levaquin 2. Essential HTN ? Continue with her home blood pressure medications ? Will monitor make adjustments as necessary 3. Anxiety/depression/restless leg syndrome ? Stable ? Continue with her home medication 4. GERD ? Stable ? Continue with PPI DVT: Lovenox Charges/Coding Visit Charges Inpatient E&M: 65954 Subs Hosp L2 09/30/24 1323 <Electronically signed by Jan Bolanos MD> Cosigner Signature (if applicable): CC: ~ Signed [facility] Work Phone: 1(720) 447-355706-07-2025 Progress note [facility] Medical Records Department [facility] [place] [address] Progress Note - Hospitalist 09/30/24 1220 MR#: [id number] Acct: [id number] Name: DENIA GONZALEZ Rep #:[id number] : 1955 69 From: Jan brennan MD PCP: Dr. Yoseph Fall MD Status:AD M IN Location: [place] [address] Subjective Subjective No issues overnight, she still maintaining her oxygen saturations on 2 to 3 L nasal cannula. She has very little tolerance for BiPAP despite the fact that she is fairly significantly hypercapnic Objective Data Objective Data Vital Signs: Vital Signs Temp Pulse Resp BP Pulse Ox O2 Del Method O2 Flow Rate 97.7 F L 116 H 20 H 141/80 H 95 Nasal Cannula 3 09/30/24 09:41 09/30/24 10:15 09/30/24 10:15 09/30/24 09:41 09/30/24 09:41 09/30/24 10:00 09/30/24 10:00 FiO2 30 09/30/24 01:23 Oxygen Flow Rate (L/min) 3 Oxygen Delivery Method Nasal Cannula Weight: 161 lb 6.054 oz Body Mass Index (BMI) 27.5 Intake & Output: Intake and Output for Last 24 Hours 09/29/24 09/30/24 10/01/24 03:59 03:59 03:59 Intake Total 1000 / 1000 Output Total 0 / 0 Balance 1000 / 1000 Lab / Micro Data 09/30/24 07:00 09/30/24 07:00 Labs: Laboratory Results - last 24 hr 09/30/24 07:00: WBC 7.7, RBC 4.52, Hgb 12.6, Hct 38.4, MCV 85.0, MCH 27.9, MCHC 32.8, RDW Std Deviation 39.9, RDW Coeff of Augustin 13.0, Plt Count 177, MPV 10.0, Immature Gran % (Auto) 0.400, Neut % (Auto) 88.1 H, Lymph % (Auto) 8.0 L, [place] %(Auto) 3.5, Eos % (Auto) 0.0, Baso % (Auto) 0.0, Absolute Neuts (auto) 6.8, Absolute Lymphs (auto) 0.61 L, Nucleated RBC % 0, Sodium 138, Potassium 4.6, Qdhautru48 L, Carbon Dioxide 33.3 H, Anion Gap 10, BUN 19, Creatinine 0.58 L, Estim Creat Clear Calc 65.06,Est GFR (MDRD) Non-Af 98, BUN/Creatinine Ratio 32.5 H, Glucose 127 H, Calcium 9.0, Total Bilirubin 0.27, AST 17, ALT 9, Alkaline Phosphatase 60, Total Protein 6.3, Albumin 3.8, Globulin 2.5, Albumin/Globulin Ratio 1.5 Micro: Microbiology 09/29/24 06:05 Mucosa - Nasopharyngeal Respiratory Panel (PCR) - Final 09/29/24 02:30 Mucosa - Nose SARS-CoV-2, Influenza & RSV (PCR) - Final Physical Exam Narrative General: Alert, Oriented x3, Cooperative, No apparent distress HEENT: Atraumatic, PERRLA, EOMI, Normocephalic Oral: Moist Mucosa Neck: Supple, No JVD Lungs: Diminished, Normal air movement, No rhonchi, wheeze, No rales Cardiovascular: Regular rate, Regular Rhythm, Normal S1, Normal S2, No [...] Plan Assessment/Plan (1) COPD with acute exacerbation: PLAN: Plan 1. Acute hypercapnic on chronic hypoxic respiratory failure secondary to COPD exacerbation/history of non-small cell lung cancer status post right lung lobectomy ? pCO2 on ABG on admission was 79 however she refuses to wear her BiPAP ? Continue with breathing treatments and steroids ? No signs of an infectious etiology on imaging with no fever or leukocytosis however sputum cultures demonstrating possible Pseudomonas ? Continue with Levaquin 2. Essential HTN ? Continue with her home blood pressure medications ? Will monitor make adjustments as necessary 3. Anxiety/depression/restless leg syndrome ? Stable ? Continue with her home medication 4. GERD ? Stable ? Continue with PPI DVT: Lovenox Charges/Coding Visit Charges Inpatient E&M: 19705 Subs Hosp L2 09/30/24 1327 Cosigner Signature (if applicable): CC: ~ Signed [place] [address]-06-2025 Evaluation note* Diagnosis Onset Date Resolution Status Admit Date Afib acute September 29, 2024 11:36am Anxiety and depression acute 2024 11:36am Aortic valve stenosis acute Kevin 2024 11:36am Tachycardia acute September 29 11:36am COPD with acute exacerbation chronic September 29, 2024 11:36am Non-small cell lung cancer chronic September 29, 2024 11:36am [facility] Work Phone: 1(998) 530-688106-06-2025 Evaluation note* Diagnosis Onset Date Resolution Status Admit Date Anxiety and depression acute 2024 11:36am Aortic valve stenosis acute Kevin 2024 11:36am Tachycardia acute September 29 11:36am Afib chronic September 29, 2024 11:36am COPD with acute exacerbation chronic September 29, 2024 11:36am Non-small cell lung cancer chronic September 29, 2024 11:36am Aortic valve stenosis acute Oct 12:58pm Afib chronic November 03 12:58pm Benign essential hypertension chroni c November 03, 2024 12:58pm [facility] Work Phone: 1(160) 810-380806-06-2025 Evaluation note* Diagnosis Onset Date Resolution Status Admit Date Anxiety and depression acute 2024 11:36am Aortic valve stenosis acute Sep 11:36am Tachycardia acute September 29 11:36am Afib chronic September 29, 2024 11:36am COPD with acute exacerbation chronic September 29, 2024 11:36am Non-small cell lung cancer chronic September 29, 2024 11:36am Aortic valve stenosis acute Oct 12:58pm Afib chronic November 03 12:58pm Benign essential hypertension chroni c November 03, 2024 12:58pm Acute anemia acute December 8:00pm COPD with acute exacerbation chronic December 26, 2024 8:00pm [facility] Work Phone: [phone] Discharge summary Author Riley Jeff [facility] Note Date/Time September 29, 2024 4:33a martínez [facility] Medical Records Department [address] [place] [address] Emergency Department Summary 09/29/24 MR#: [id number] Acct: [id number] Name: DENIA GONZALEZ Rep #:[id number] : 1955 69 From: Riley Jeff DO PCP: Dr. Yoseph Fall MD Status:RE G ER Location: ED HPI History of Present Illness Chief Complaint: Shortness of Breath Informant: patient and EMS Narrative Narrative: Patient is a 69-year-old female with past medical history of hypertension and COPD who wears 2 to 3 L nasal cannula oxygen 16/11. She states that she has a home nebulizer machine and takes prednisone every other day. She states over the past 5 to 7 days she has been having increased cough and shortness of breath. Secondary to this she increased her prednisone to 40 mg and has been taking a reported taper. Despite the added prednisone and her continued use of breathing treatments she states cough and shortness of breath has persisted. Secondary to that she presents for evaluation [facility] Medical History RLS (restless legs syndrome) History of ETOH abuse Chronic hypoxic respiratory failure, on home oxygen therapy COPD (chronic obstructive pulmonary disease) Anxiety Depression Smoker Asthma Hypertension Migraines Medical History no medical history Home Medications ?Medication ?Instructions ?Recorded ?Last Taken ?Type albuterol sulfate 90 mcg/actuation 1 - 2 puff inhalati on Q4H PRN PRN 04/18/13 09/23/14 History aerosol inhaler (Ventolin HFA) Bronchodialation cyclobenzaprine 10 mg tablet 10 mg PO Q12H pain 09/23/14 History 10 MG fluticasone propionate 50 1 spray intranasal DAILY porfirio al 04/18/13 09/23/14 History mcg/actuation nasal congestion spray,suspension montelukast 10 mg tablet 10 mg PO DAILY allergies 09/23/14 History 10 MG omeprazole 20 mg capsule,delayed 20 mg PO DAILY heart burn 04/18/13 09/23/14 History release 20 MG tiotropium bromide 18 mcg capsule 1 puff inhalation DA BINU wheezing 04/18/13 09/23/14 History with inhalation device (Spiriva with HandiHaler) verapamil 240 mg tablet,extended 360 mg PO DAILY heart 04/18/13 09/23/14 History release 360 MG Oxygen, Home [Home Oxygen] 2.5 lpm PRN PRN Dyspnea 09/23/14 History sertraline 100 mg tablet 100 mg PO DAILY insomina 09/23/14 History fluticasone 500 mcg-salmeterol 50 1 puff inhalation BI D shortness of 10/26/13 09/23/14 Rx mcg/dose blistr powdr for breath ##1 inhalation (Advair Diskus) Ropinirole Hcl 0.25 mg PO QHS restless legs 09/23/14 Unknown History prednisone 10 mg tablet 15 mg PO PRN PRN FLARE UPS 1 06/04/14 Unknown History ipratropium 0.5 mg-albuterol 3 mg 3 ml inhalation Q4HW A.RT wheezing 05/13/16 Unknown Rx (2.5 mg base)/3 mL nebulization ##30 soln lorazepam 0.5 mg tablet 0.5 mg PO QHS anxiety #7 tab s 05/05/20 Unknown Rx nicotine (polacrilex) 2 mg gum 2 mg buccal Q2H #20 ea 07/22/23 Unknown Rx (Nicorette) azithromycin 250 mg tablet See Rx Instructions PO .COM PLEX #6 10/18/23 Unknown Rx (Zithromax) tabs cholecalciferol (vitamin D3) 50 50 mcg PO DAILY Unknown History mcg (2,000 unit) capsule (Vitamin [...] / Time No Known Allergies Allergy Verified 09/29/24 02:19 Family History Mother Hypertension Throat cancer Father Hypertension Stomach cancer Family History no significant family his Surgical History H/O exploratory laparotomy History of lung surgery History of cholecystectomy Social History household members: none Smoking Status: Former smoker alcohol intake: former substance use type: does not use ROS ROS ED Constitutional Constitutional ED: Denies chills or fever(s) ENT ENT ED: Denies rhinorrhea or sore throat Cardiovascular Cardiovascular: Denies chest pain, palpitations or racing heartbeat Respiratory/Chest Respiratory/Chest: Reports cough and dyspnea Gastrointestinal Gastrointestinal: Denies abdominal pain, diarrhea, nausea or vomiting Genitourinary Genitourinary ED: Denies dysuria Musculoskeletal Musculoskeletal: Denies myalgias Integumentary Denies rash Neurologic Neurologic: Reports weakness; Denies headache(s) Hematologic/Lymphatic Hematologic/Lymphatic: Denies easy bleeding or easy bruising Allergic/Immunologic Allergic/Immunologic ED: Denies mouth swelling or tongue swelling EXAM Physical Exam Const Vital Signs: 09/29/24 02:19 09/29/24 02:23 09/29/24 02:25 Temperature 99.1 F 99.1 F Temperature Source Oral Oral Pulse Rate 140 H 140 H Respiratory Rate 24 H 25 H Respiratory Effort Short of Breath Respiratory Pattern Tachypnea Blood Pressure 190/92 H 190/92 H Blood Pressure Mean 124 124 Pulse Ox 94 96 Oxygen Delivery Method Nasal Cannula Nasal Cannula Nasal Cannula Oxygen Flow Rate (L/min) 3 3 3 09/29/24 03:00 09/29/24 03:23 Temperature 98.8 F Temperature Source Oral Pulse Rate 119 H 116 H Respiratory Rate 20 H 24 H Respiratory Effort Respiratory Pattern Normal Blood Pressure 154/89 H Blood Pressure Mean 110 Pulse Ox 97 Oxygen Delivery Method Nasal Cannula Oxygen Flow Rate (L/min) 3 Positive well nourished, well developed and unkempt General Appearance ED: unkempt and well developed; Negative for pallor HEENT Reports dry mucous membranes HEENT Narrative: Mucous membranes are dry and tacky No tongue or lip swelling no oral lesions no airway edema or compromise Mouth ED: Yes dry mucous membranes Mouth: dry mucous membranes Eyes PERRL and EOMs intact bilaterally General Eye ED: Negative for scleral icterus Neck supple and no JVD Neck Narrative: No nuchal rigidity or meningeal signs Chest Wall palpation of chest normal Resp Resp Narrative: Patient is tachypneic with accessory muscle use. Breath sounds are severely diminished throughout and there is diffuse inspiratory and expiratory wheezing noted Cardio regular rhythm Rate: tachycardic and other Other Details: Tachycardic rate with regular rhythm Radial and carotid pulses are equal and symmetric GI normal to inspection, nondistended, normoactive bowel sounds, non-tender, non-distended and no masses Auscultation: normoactive bowel sounds Palpation: soft Extremity normal to inspection Extremity Narrative: No asymmetric edema no pitting edema negative Homans' sign bilaterally Neuro oriented x3, CN's II-XII intact bilaterally and no sensory deficits noted Sensorium / Orientation: alert Motor Exam: strength 5/5 throughout Psych mental status grossly normal Appearance: unkempt Skin no rashes or lesions noted General Skin Exam: Negative for jaundice or pallor MDM MDM MDM Narrative Medical decision making narrative: Patient arrived to the ER tachycardic and tachypneic but satting in the mid 90s on her normal 2 to 3 L nasal cannula oxygen. The patient denies any chest pain and reports that her increased shortness of breath is associated with cough but states has been no fevers chills or known sick contact. As she has been taking steroids and using her breathing treatments without symptom improvement there isconcern for underlying pneumonia pneumothorax or CHF exacerbation. Patient could also have increased shortness of breath secondary to acute blood loss anemia. Therefore basic labs viral swab and chest x-ray were obtained. White count is normal and she is afebrile going against an infectious process. Chest x-ray revealed no sign of pneumonia pneumothorax or pleural effusion. COVID influenza and RSV testing were negative. H&H is stable going against acute blood loss anemia. The patient was given IV steroids as well as albuterol and DuoNeb nebulizers. She did have mild to moderate improvement of her symptoms but still states that she feels short of breath. As she is failing outpatient therapy at home the decision was made to contact medicine to discuss admission. After discussion with the hospitalist as the patient is failing outpatient therapy they do agree to bring her in for continued observation and treatment. History & Record Review Discussion w/independent historian: EMS personnel and Patient Lab Data Attestation: I reviewed the patient's lab results. Labs: Laboratory Results - last 24 hr 09/29/24 02:30 WBC 10.6 RBC 4.88 Hgb 13.6 Hct 41.7 MCV 85.5 MCH 27.9 MCHC 32.6 RDW Std Deviation 40.6 RDW Coeff of Augustin 13.1 Plt Count 198 MPV 9.7 Immature Gran % (Auto) 0.500 Neut % (Auto) 78.5 H Lymph % (Auto) 13.2 L [place] % (Auto) 6.9 Eos % (Auto) 0.7 Baso % (Auto) 0.2 Absolute Neuts (auto) 8.4 H Absolute Lymphs (auto) 1.40 Nucleated RBC % 0 Sodium 136 Potassium 4.4 Chloride 93 L Carbon Dioxide 33.1 H Anion Gap 10 BUN 18 Creatinine 0.70 Estim Creat Clear Calc 64.35 Est GFR (MDRD) Non-Af 94 BUN/Creatinine Ratio 25.5 H Glucose 129 H Calcium 8.9 Magnesium 2.0 NT pro BNP II 518 Radiography Diagnostic Testing: Clinical Impression(s) from Imaging Studies Chest X-Ray 09/29/24 02:47 IMPRESSION: Stable appearance of the chest. Emphysematous changes without evidence of an acute cardiopulmonary abnormality. Reading Location: [facility] Chest x-ray as interpreted by the emergency medicine physician reveals no acute infiltrate pneumothorax or pleural effusion Management Discussion w/another healthcare provider: Hospitalist Discharge Plan Dx/Rx/DC Orders Clinical Impression: COPD with acute exacerbation, Benign essential hypertension, Anxiety and depression Disposition [facility] What to do if you have Problems For any increased pain, shortness of breath, bleeding, nausea or vomiting, chestpain, or any unexpected problems, contact your Primary Care Provider. Call [facility] ([phone]) or report to the closest Emergency Room. Call 911 if necessary. 09/29/24 7393 <Electronically signed by Riley Jeff DO> Cosigner Signature (if applicable): CC: Dr. Yoseph Fall MD ~ Signed [facility] Work Phone: 1(428) 408-589106-06-2025 History and physical note Author Dionne Porter [facility] Note Date/Time September 29, 2024 4:32a m [facility] Medical Records Department [address] [place] [address] H&P Exam - Hospitalist 09/29/248 MR#: [id number] Acct: [id number] Name: DENIA GONZALEZ Rep #:[id number] : 1955 69 From: Dionne Porter MD PCP: Dr. Yoseph Fall MD Status:RE G ER Location: ED HPI - General General Date of Admission: 09/29/24 Date of Service: 09/29/24 Chief Complaint: Dyspnea, wheezing, cough. HPI Narrative The patient is a 69 y/o F w/ PMHx: GERD, RLS, Anxiety and Depression, Former tobacco use, Former EtOH Abuse, Hx Non-small cell lung cancer status post right lung lobectomy remotely 2003, COPD/Asthma with Chronic Hypoxic Respiratory Failure with allergic rhinitis, HTN who presents to the [facility] ED on 09/29/2024 with history of ~ 1 weeks worsening dyspnea, wheezing, nonproductive cough prompting her to utilize aggressive nebulizer treatments at home as well as increasing her home chronic prednisone therapy but unfortunatelyshe continued to have worsening symptoms more severe over the last 24 hours withno recent fever, chills, URI type symptoms prompting eventual ED evaluation. Patient does report she recently quit smoking several weeks previous and is asking for nicotine replacement. Workup in the ED included T99.1, heart 140, BP190/92, respiratory rate 24, 94% on 3 L nasal cannula, CBC with WBC 10.6, hemoglobin 13.6, platelet 198 with left shift, BMP with chloride 93,, oxide 33.1, BUN/creat 18/0.70, GFR 94, glucose 129, magnesium 2.0, NT proBNP 05/31/2017,chest x-ray with emphysematous changes with no acute cardiopulmonary findings. In the ED patient ministered DuoNeb therapy, albuterol, Solu-Medrol 125 mg IV x 1. PFSH Medical History RLS (restless legs syndrome) History of ETOH abuse Chronic hypoxic respiratory failure, on home oxygen therapy COPD (chronic obstructive pulmonary disease) Anxiety Depression Smoker Asthma Hypertension Migraines Medical History no medical history Home Medications ?Medication ?Instructions ?Recorded ?Last Taken ?Type albuterol sulfate 90 mcg/actuation 1 - 2 puff inhalati on Q4H PRN PRN 04/18/13 09/23/14 History aerosol inhaler (Ventolin HFA) Bronchodialation cyclobenzaprine 10 mg tablet 10 mg PO Q12H pain 09/23/14 History 10 MG fluticasone propionate 50 1 spray intranasal DAILY porfirio al 04/18/13 09/23/14 History mcg/actuation nasal congestion spray,suspension montelukast 10 mg tablet 10 mg PO DAILY allergies 09/23/14 History 10 MG omeprazole 20 mg capsule,delayed 20 mg PO DAILY heart burn 04/18/13 09/23/14 History release 20 MG tiotropium bromide 18 mcg capsule 1 puff inhalation DA BINU wheezing 04/18/13 09/23/14 History with inhalation device (Spiriva with HandiHaler) verapamil 240 mg tablet,extended 360 mg PO DAILY heart 04/18/13 09/23/14 History release 360 MG Oxygen, Home [Home Oxygen] 2.5 lpm PRN PRN Dyspnea 09/23/14 History sertraline 100 mg tablet 100 mg PO DAILY insomina 09/23/14 History fluticasone 500 mcg-salmeterol 50 1 puff inhalation BI D shortness of 10/26/13 09/23/14 Rx mcg/dose blistr powdr for breath ##1 inhalation (Advair Diskus) Ropinirole Hcl 0.25 mg PO QHS restless legs 09/23/14 Unknown History prednisone 10 mg tablet 15 mg PO PRN PRN FLARE UPS 1 06/04/14 Unknown History ipratropium 0.5 mg-albuterol 3 mg 3 ml inhalation Q4HW A.RT wheezing 05/13/16 Unknown Rx (2.5 mg base)/3 mL nebulization ##30 soln lorazepam 0.5 mg tablet 0.5 mg PO QHS anxiety #7 tab s 05/05/20 Unknown Rx nicotine (polacrilex) 2 mg gum 2 mg buccal Q2H #20 ea 07/22/23 Unknown Rx (Nicorette) azithromycin 250 mg tablet See Rx Instructions PO .COM PLEX #6 10/18/23 Unknown Rx (Zithromax) tabs cholecalciferol (vitamin D3) 50 50 mcg PO DAILY Unknown History mcg (2,000 unit) capsule (Vitamin [...] / Time No Known Allergies Allergy Verified 09/29/24 02:19 Family History Mother Hypertension Throat cancer Father Hypertension Stomach cancer Family History no significant family his Surgical History H/O exploratory laparotomy History of lung surgery History of cholecystectomy Social History household members: none Smoking Status: Former smoker alcohol intake: former substance use type: does not use ROS ROS Narrative Admission Review of Systems: CONSTITUTIONAL: No weight loss, fever, chills, + weakness or fatigue. HEENT: Eyes: No visual loss, blurred vision, double vision or yellow sclerae. Ears, Nose, Throat: No hearing loss, sneezing, congestion, runny nose or sore throat. SKIN: No rash or itching, lesions, wounds. CARDIOVASCULAR: No chest pain, chest pressure or chest discomfort, palpitations,edema, orthopnea, syncopal events. RESPIRATORY: + Dyspnea, cough without markedly productive sputum, wheezing. No hemoptysis. GASTROINTESTINAL: No anorexia, nausea, vomiting or diarrhea, abdominal pain, melena, BRBPR. GENITOURINARY: No dysuria, frequency, urgency or retention. NEUROLOGICAL: No headache, dizziness, syncope, paralysis, ataxia, numbness or tingling in the extremities, focal weakness, change in bowel or bladder control,seizure. MUSCULOSKELETAL: + muscle, back pain, joint pain or stiffness. HEMATOLOGIC: No anemia, bleeding or bruising. LYMPHATICS: No enlarged nodes. No history of splenectomy. PSYCHIATRIC: + History of anxiety and depression. ENDOCRINOLOGIC: No reports of sweating, cold or heat intolerance. No polyuria orpolydipsia. ALLERGIES: + Allergic rhinitis. Vital Signs Vital Signs Vital Signs: 09/29/24 02:19 09/29/24 02:23 09/29/24 02:25 Temperature 99.1 F 99.1 F Temperature Source Oral Oral Pulse Rate 140 H 140 H Respiratory Rate 24 H 25 H Respiratory Effort Short of Breath Respiratory Pattern Tachypnea Blood Pressure 190/92 H 190/92 H Blood Pressure Mean 124 124 Pulse Ox 94 96 Oxygen Delivery Method Nasal Cannula Nasal Cannula Nasal Cannula Oxygen Flow Rate (L/min) 3 3 3 09/29/24 03:00 09/29/24 03:23 Temperature 98.8 F Temperature Source Oral Pulse Rate 119 H 116 H Respiratory Rate 20 H 24 H Respiratory Effort Respiratory Pattern Normal Blood Pressure 154/89 H Blood Pressure Mean 110 Pulse Ox 97 Oxygen Delivery Method Nasal Cannula Oxygen Flow Rate (L/min) 3 Weight Weight: 157 lb 10.088 oz Body Mass Index (BMI) 27.0 Physical Exam Narrative Physical Examination: General: Awake, alert, oriented x 3 and cooperative, seated upright in the ED bed, fatigued, persistent tachypnea and some accessory muscle usage but no overtdistress. Skin: Normal color, normal turgor, no icterus, no cyanosis. HEENT: AT/NC, EOMI, PERRLA, MMM, no carotid bruits or JVD noted. Lungs: Severely diffusely diminished, > bases, on home 3L NC supplementation, persistent tachypnea and some accessory muscle usage but no overt distress, occasional soft end expiratory wheezing but very minimal as very poor air movement noted, no rales or rhonchi. Heart: Mildly tachycardic with regular rhythm; no gallop, rub audible. Abdomen: Soft, overweight, NTTP, ND, normal BS, no no appreciated HSM. Extremities: No cyanosis, clubbing, or edema. Neurological: Patient awake, alert, oriented as noted, cognitive function intact; pupils equally reactive to light and accommodation, cranial nerves grossnormal, moving all 4 extremities, no focal deficits, strength severely globally decreased secondary to acute presentation complaints. Psychiatric: Affect appears fatigued, no acute evidence of depressive or anxietyfeelings but does have underlying history. Results Lab / Micro Data 09/29/24 02:30 09/29/24 02:30 Labs: Laboratory Results - last 24 hr 09/29/24 02:30: WBC 10.6, RBC 4.88, Hgb 13.6, Hct 41.7, MCV 85.5, MCH 27.9, MCHC32.6, RDW Std Deviation 40.6, RDW Coeff of Augustin 13.1, Plt Count 198, MPV 9.7, Immature Gran % (Auto) 0.500, Neut % (Auto) 78.5 H, Lymph % (Auto) 13.2 L, [place] % (Auto) 6.9, Eos % (Auto) 0.7, Baso % (Auto) 0.2, Absolute Neuts (auto) 8.4 H, Absolute Lymphs (auto) 1.40, Nucleated RBC % 0, Sodium 136, Potassium 4.4, Chloride 93 L, Carbon Dioxide 33.1 H, Anion Gap 10, BUN 18, Creatinine 0.70, Estim Creat Clear Calc 64.35, Est GFR (MDRD) Non-Af 94, BUN/Creatinine Ratio 25.5 H, Glucose 129 H, Calcium 8.9, Magnesium 2.0, NT pro BNP II 518 Micro: Microbiology 09/29/24 02:30 Mucosa - Nose SARS-CoV-2, Influenza & RSV (PCR) - Final Imaging Radiology Impression Chest X-Ray 09/29/24 02:47 IMPRESSION: Stable appearance of the chest. Emphysematous changes without evidence of an acute cardiopulmonary abnormality. Reading Location: [id number] Assessment & Plan Assessment/Plan (1) COPD with acute exacerbation: PLAN: Plan The patient is a 69 y/o F w/ PMHx: GERD, RLS, Anxiety and Depression, Former tobacco use, Former EtOH Abuse, Hx Non-small cell lung cancer status post right lung lobectomy remotely 2003, COPD/Asthma with Chronic Hypoxic Respiratory Failure with allergic rhinitis, HTN who presents to the [facility] ED on 09/29/2024 with history of ~ 1 weeks worsening dyspnea, wheezing, nonproductive cough prompting her to utilize aggressive nebulizer treatments at home as well as increasing her home chronic prednisone therapy but unfortunatelyshe continued to have worsening symptoms more severe over the last 24 hours withno recent fever, chills, URI type symptoms prompting eventual ED evaluation. #1. Acute on Chronic COPD exacerbation with chronic hypoxic respiratory failure: Will admit to PCU, will obtain ABG, will maintain on oxygen with wean as tolerated to home oxygen supplementation, continue ATC duonebs, PRN albuterol, IV methylprednisolone, HOB, IS parameters, will obtain sputum Cx, respiratory viral panel, procalcitonin, will hold on immediately abx therapy butlow threshold to add if appropriate. #2. History non-small cell lung cancer: Patient diagnosed remotely, status postright lung lobectomy, considered in remission, encourage continued follow-up outpatient as previously arranged. #3. Hypertension: Continue home regimen including verapamil, PRN hydralazine. #4. Restless leg syndrome: Will continue patient on Requip regimen. #5. Anxiety and depression: Will continue patient on sertraline and low-dose lorazepam regimen. #6. Allergic rhinitis: Will continue patient home montelukast and fluticasone regimen. #7. Former alcohol abuse: Patient with previous heavy alcohol use, encourage continued sobriety. #8. Former tobacco use: Patient just recently quit approximately 3 weeks prior,had smoked in the past and quit previously but apparently it picked up again. Encourage continued tobacco cessation. #9. GERD: Will continue patient on PPI. #10. DVT prophylaxis: Lovenox. #11. CODE status: Patient HCPOA and living will are not in place but she notes she would want Mike her significant other to be her medical decision-maker if necessary. Discussed CODE status at length including difference between FULL code, DNR-CCA and DNR-CC status. Following discussions about the differences in these status, requested Full Code status. Charges/Coding Visit Charges Inpatient E&M: 22350 Init Hosp L3 09/29/24 0432 <Electronically signed by Dionne Porter MD> Cosigner Signature (if applicable): CC: Dr. Dionne Porter MD; Dr. Yoseph Fall MD~ Signed [facility] Work Phone: [phone]) 767-263406-06-2025 Discharge summary [facility] Medical Records Department [address] [place] [address] Emergency Department Summary 09/29/24 MR#: [id number] Acct: [id number] Name: DENIA GONZALEZ Rep #:[id number] : 1955 69 From: Riley Jeff DO PCP: Dr. Yoseph Fall MD Status:RE G ER Location: ED HPI History of Present Illness Chief Complaint: Shortness of Breath Informant: patient and EMS Narrative Narrative: Patient is a 69-year-old female with past medical history of hypertension and COPD who wears 2 to 3L nasal cannula oxygen 16/11. She states that she has a home nebulizer machine and takes prednisone every other day. She states over the past 5 to 7 days she has been having increased cough and shortness of breath. Secondary to this she increased her prednisone to 40 mg and has been taking a reported taper. Despite the added prednisone and her continued use of breathing treatments she states coughand shortness of breath has persisted. Secondary to that she presents for evaluation [facility] Medical History RLS (restless legs syndrome) History of ETOH abuse Chronic hypoxic respiratory failure, on home oxygen therapy COPD (chronic obstructive pulmonary disease) Anxiety Depression Smoker Asthma Hypertension Migraines Medical History no medical history Home Medications ?Medication ?Instructions ?Recorded ?Last Taken ?Type albuterol sulfate 90 mcg/actuation 1 - 2 puff inhalati on Q4H PRN PRN 04/18/13 09/23/14 History aerosol inhaler (Ventolin HFA) Bronchodialation cyclobenzaprine 10 mg tablet 10 mg PO Q12H pain 09/23/14 History 10 MG fluticasone propionate 50 1 spray intranasal DAILY porfirio al 04/18/13 09/23/14 History mcg/actuation nasal congestion spray,suspension montelukast 10 mg tablet 10 mg PO DAILY allergies 09/23/14 History 10 MG omeprazole 20 mg capsule,delayed 20 mg PO DAILY heart burn 04/18/13 09/23/14 History release 20 MG tiotropium bromide 18 mcg capsule 1 puff inhalation DA BINU wheezing 04/18/13 09/23/14 History with inhalation device (Spiriva with HandiHaler) verapamil 240 mg tablet,extended 360 mg PO DAILY heart 04/18/13 09/23/14 History release 360 MG Oxygen, Home [Home Oxygen] 2.5 lpm PRN PRN Dyspnea 09/23/14 History sertraline 100 mg tablet 100 mg PO DAILY insomina 09/23/14 History fluticasone 500 mcg-salmeterol 50 1 puff inhalation BI D shortness of 10/26/13 09/23/14 Rx mcg/dose blistr powdr for breath ##1 inhalation (Advair Diskus) Ropinirole Hcl 0.25 mg PO QHS restless legs 09/23/14 Unknown History prednisone 10 mg tablet 15 mg PO PRN PRN FLARE UPS 1 06/04/14 Unknown History ipratropium 0.5 mg-albuterol 3 mg 3 ml inhalation Q4HW A.RT wheezing 05/13/16 Unknown Rx (2.5 mg base)/3 mL nebulization ##30 soln lorazepam 0.5 mg tablet 0.5 mg PO QHS anxiety #7 tab s 05/05/20 Unknown Rx nicotine (polacrilex) 2 mg gum 2 mg buccal Q2H #20 ea 07/22/23 Unknown Rx (Nicorette) azithromycin 250 mg tablet See Rx Instructions PO .COM PLEX #6 10/18/23 Unknown Rx (Zithromax) tabs cholecalciferol (vitamin D3) 50 50 mcg PO DAILY Unknown History mcg (2,000 unit) capsule (Vitamin [...] / Time No Known Allergies Allergy Verified 09/29/24 02:19 Family History Mother Hypertension Throat cancer Father Hypertension Stomach cancer Family History no significant family his Surgical History H/O exploratory laparotomy History of lung surgery History of cholecystectomy Social History household members: none Smoking Status: Former smoker alcohol intake: former substance use type: does not use ROS ROS ED Constitutional Constitutional ED: Denies chills or fever(s) ENT ENT ED: Denies rhinorrhea or sore throat Cardiovascular Cardiovascular: Denies chest pain, palpitations or racing heartbeat Respiratory/Chest Respiratory/Chest: Reports cough and dyspnea Gastrointestinal Gastrointestinal: Denies abdominal pain, diarrhea, nausea or vomiting Genitourinary Genitourinary ED: Denies dysuria Musculoskeletal Musculoskeletal: Denies myalgias Integumentary Denies rash Neurologic Neurologic: Reports weakness; Denies headache(s) Hematologic/Lymphatic Hematologic/Lymphatic: Denies easy bleeding or easy bruising Allergic/Immunologic Allergic/Immunologic ED: Denies mouth swelling or tongue swelling EXAM Physical Exam Const Vital Signs: 09/29/24 02:19 09/29/24 02:23 09/29/24 02:25 Temperature 99.1 F 99.1 F Temperature Source Oral Oral Pulse Rate 140 H 140 H Respiratory Rate 24 H 25 H Respiratory Effort Short of Breath Respiratory Pattern Tachypnea Blood Pressure 190/92 H 190/92 H Blood Pressure Mean 124 124 Pulse Ox 94 96 Oxygen Delivery Method Nasal Cannula Nasal Cannula Nasal Cannula Oxygen Flow Rate (L/min) 3 3 3 09/29/24 03:00 09/29/24 03:23 Temperature 98.8 F Temperature Source Oral Pulse Rate 119 H 116 H Respiratory Rate 20 H 24 H Respiratory Effort Respiratory Pattern Normal Blood Pressure 154/89 H Blood Pressure Mean 110 Pulse Ox 97 Oxygen Delivery Method Nasal Cannula Oxygen Flow Rate (L/min) 3 Positive well nourished, well developed and unkempt General Appearance ED: unkempt and well developed; Negative for pallor HEENT Reports dry mucous membranes HEENT Narrative: Mucous membranes are dry and tacky No tongue or lip swelling no oral lesions no airway edema or compromise Mouth ED: Yes dry mucous membranes Mouth: dry mucous membranes Eyes PERRL and EOMs intact bilaterally General Eye ED: Negative for scleral icterus Neck supple and no JVD Neck Narrative: No nuchal rigidity or meningeal signs Chest Wall palpation of chest normal Resp Resp Narrative: Patient is tachypneic with accessory muscle use. Breath sounds are severely diminished throughout and there is diffuse inspiratory and expiratory wheezing noted Cardio regular rhythm Rate: tachycardic and other Other Details: Tachycardic rate with regular rhythm Radial and carotid pulses are equal and symmetric GI normal to inspection, nondistended, normoactive bowel sounds, non-tender, non- distended and no masses Auscultation: normoactive bowel sounds Palpation: soft Extremity normal to inspection Extremity Narrative: No asymmetric edema no pitting edema negative Homans' sign bilaterally Neuro oriented x3, CN's II-XII intact bilaterally and no sensory deficits noted Sensorium / Orientation: alert Motor Exam: strength 5/5 throughout Psych mental status grossly normal Appearance: unkempt Skin no rashes or lesions noted General Skin Exam: Negative for jaundice or pallor MDM MDM MDM Narrative Medical decision making narrative: Patient arrived to the ER tachycardic and tachypneic but satting in the mid 90s on her normal 2 to 3 L nasal cannula oxygen. The patient denies any chest pain and reports that her increased shortnessof breath is associated with cough but states has been no fevers chills or known sick contact. As she has been taking steroids and using her breathing treatments without symptom improvement there isconcern for underlying pneumonia pneumothorax or CHF exacerbation. Patient could also have increased shortness of breath secondary to acute blood loss anemia. Therefore basic labs viral swab and chest x-ray were obtained. White count is normal and she is afebrile going against an infectious process. Chest x-ray revealed no sign of pneumonia pneumothorax or pleural effusion. COVID influenza and RSV testing were negative. H&H is stable going against acute blood loss anemia. The patient was given IV steroids as well as albuterol and DuoNeb nebulizers. She did have mild to moderate improvement of her symptoms but still states that she feels short of breath. As she is failing outpatient therapy at home the decision was made to contact medicine to discuss admission. After discussion with the hospitalist as the patient is failing outpatient therapy they do agree to bring her in for continuedobservation and treatment. History & Record Review Discussion w/independent historian: EMS personnel and Patient Lab Data Attestation: I reviewed the patient's lab results. Labs: Laboratory Results - last 24 hr 09/29/24 02:30 WBC 10.6 RBC 4.88 Hgb 13.6 Hct 41.7 MCV 85.5 MCH 27.9 MCHC 32.6 RDW Std Deviation 40.6 RDW Coeff of Augustin 13.1 Plt Count 198 MPV 9.7 Immature Gran % (Auto) 0.500 Neut % (Auto) 78.5 H Lymph % (Auto) 13.2 L [place] % (Auto) 6.9 Eos % (Auto) 0.7 Baso % (Auto) 0.2 Absolute Neuts (auto) 8.4 H Absolute Lymphs (auto) 1.40 Nucleated RBC % 0 Sodium 136 Potassium 4.4 Chloride 93 L Carbon Dioxide 33.1 H Anion Gap 10 BUN 18 Creatinine 0.70 Estim Creat Clear Calc 64.35 Est GFR (MDRD) Non-Af 94 BUN/Creatinine Ratio 25.5 H Glucose 129 H Calcium 8.9 Magnesium 2.0 NT pro BNP II 518 Radiography Diagnostic Testing: Clinical Impression(s) from Imaging Studies Chest X-Ray 09/29/24 02:47 IMPRESSION: Stable appearance of the chest. Emphysematous changes without evidence of an acute cardiopulmonary abnormality. Reading Location: [facility] Chest x-ray as interpreted by the emergency medicine physician reveals no acute infiltrate pneumothorax or pleural effusion Management Discussion w/another healthcare provider: Hospitalist Discharge Plan Dx/Rx/DC Orders Clinical Impression: COPD with acute exacerbation, Benign essential hypertension, Anxiety and depression [facility]position [facility] What to do if you have Problems For any increased pain, shortness of breath, bleeding, nausea or vomiting, chestpain, or any unexpected problems, contact your Primary Care Provider. Call [facility] ([phone]) or report tothe closest Emergency Room. Call 911 if necessary. 09/29/24 0433 Cosigner Signature (if applicable): CC: Dr. Yoseph Fall MD ~ Signed [facility]06-06-2025 History and physical note [facility] Medical Records Department [address] [place] [id number] H&P Exam - Hospitalist 09/29/24 0403 MR#: [id number] Acct: [id number] Name: DENIA GONZALEZ Rep #:[id number] : 1955 69 From: Dionne Porter MD PCP: Dr. Yoseph Fall MD Status:RE G ER Location: ED HPI - General General Date of Admission: 09/29/24 Date of Service: 09/29/24 Chief Complaint: Dyspnea, wheezing, cough. HPI Narrative The patient is a 69 y/o F w/ PMHx: GERD, RLS, Anxiety and Depression, Former tobacco use, Former EtOH Abuse, Hx Non-small cell lung cancer status post right lung lobectomy remotely 2003, COPD/Asthma with Chronic Hypoxic Respiratory Failure with allergic rhinitis, HTN who presents to the [facility] ED on 09/29/2024 with history of ~ 1 weeks worsening dyspnea, wheezing, nonproductive cough prompting her to utilize aggressive nebulizer treatments at home as well as increasing her home chronic prednisone therapy but unfortunatelyshe continued to have worsening symptoms more severe over the last 24 hours withno recent fever, chills, URI type symptoms prompting eventual ED evaluation. Patient does report she recently quit smoking several weeks previous and is asking for nicotine replacement. Workup in the ED included T99.1, heart 140, BP190/92, respiratory rate 24, 94% on 3 L nasal cannula, CBC with WBC 10.6, hemoglobin 13.6, platelet 198 with left shift, BMP with chloride 93,, oxide 33.1, BUN/creat 18/0.70, GFR 94, glucose 129, magnesium 2.0, NT proBNP 05/31/2017,chest x-ray with emphysematous changes with no acute cardiopulmonary findings. In the ED patient ministered DuoNeb therapy, albuterol, Solu-Medrol 125 mg IV x 1. PFSH Medical History RLS (restless legs syndrome) History of ETOH abuse Chronic hypoxic respiratory failure, on home oxygen therapy COPD (chronic obstructive pulmonary disease) Anxiety Depression Smoker Asthma Hypertension Migraines Medical History no medical history Home Medications ?Medication ?Instructions ?Recorded ?Last Taken ?Type albuterol sulfate 90 mcg/actuation 1 - 2 puff inhalati on Q4H PRN PRN 04/18/13 09/23/14 History aerosol inhaler (Ventolin HFA) Bronchodialation cyclobenzaprine 10 mg tablet 10 mg PO Q12H pain 09/23/14 History 10 MG fluticasone propionate 50 1 spray intranasal DAILY porfirio al 04/18/13 09/23/14 History mcg/actuation nasal congestion spray,suspension montelukast 10 mg tablet 10 mg PO DAILY allergies 09/23/14 History 10 MG omeprazole 20 mg capsule,delayed 20 mg PO DAILY heart burn 04/18/13 09/23/14 History release 20 MG tiotropium bromide 18 mcg capsule 1 puff inhalation DA BINU wheezing 04/18/13 09/23/14 History with inhalation device (Spiriva with HandiHaler) verapamil 240 mg tablet,extended 360 mg PO DAILY heart 04/18/13 09/23/14 History release 360 MG Oxygen, Home [Home Oxygen] 2.5 lpm PRN PRN Dyspnea 09/23/14 History sertraline 100 mg tablet 100 mg PO DAILY insomina 09/23/14 History fluticasone 500 mcg-salmeterol 50 1 puff inhalation BI D shortness of 10/26/13 09/23/14 Rx mcg/dose blistr powdr for breath ##1 inhalation (Advair Diskus) Ropinirole Hcl 0.25 mg PO QHS restless legs 09/23/14 Unknown History prednisone 10 mg tablet 15 mg PO PRN PRN FLARE UPS 1 06/04/14 Unknown History ipratropium 0.5 mg-albuterol 3 mg 3 ml inhalation Q4HW A.RT wheezing 05/13/16 Unknown Rx (2.5 mg base)/3 mL nebulization ##30 soln lorazepam 0.5 mg tablet 0.5 mg PO QHS anxiety #7 tab s 05/05/20 Unknown Rx nicotine (polacrilex) 2 mg gum 2 mg buccal Q2H #20 ea 07/22/23 Unknown Rx (Nicorette) azithromycin 250 mg tablet See Rx Instructions PO .COM PLEX #6 10/18/23 Unknown Rx (Zithromax) tabs cholecalciferol (vitamin D3) 50 50 mcg PO DAILY Unknown History mcg (2,000 unit) capsule (Vitamin [...] / Time No Known Allergies Allergy Verified 09/29/24 02:19 Family History Mother Hypertension Throat cancer Father Hypertension Stomach cancer Family History no significant family his Surgical History H/O exploratory laparotomy History of lung surgery History of cholecystectomy Social History household members: none Smoking Status: Former smoker alcohol intake: former substance use type: does not use ROS ROS Narrative Admission Review of Systems: CONSTITUTIONAL: No weight loss, fever, chills, + weakness or fatigue. HEENT: Eyes: No visual loss, blurred vision, double vision or yellow sclerae. Ears, Nose, Throat: No hearing loss, sneezing, congestion, runny nose or sore throat. SKIN: No rash or itching, lesions, wounds. CARDIOVASCULAR: No chest pain, chest pressure or chest discomfort, palpitations,edema, orthopnea, syncopal events. RESPIRATORY: + Dyspnea, cough without markedly productive sputum, wheezing. No hemoptysis. GASTROINTESTINAL: No anorexia, nausea, vomiting or diarrhea, abdominal pain, melena, BRBPR. GENITOURINARY: No dysuria, frequency, urgency or retention. NEUROLOGICAL: No headache, dizziness, syncope, paralysis, ataxia, numbness or tingling in the extremities, focal weakness, change in bowel or bladder control,seizure. MUSCULOSKELETAL: + muscle, back pain, joint pain or stiffness. HEMATOLOGIC: No anemia, bleeding or bruising. LYMPHATICS: No enlarged nodes. No history of splenectomy. PSYCHIATRIC: + History of anxiety and depression. ENDOCRINOLOGIC: No reports of sweating, cold or heat intolerance. No polyuria orpolydipsia. ALLERGIES: + Allergic rhinitis. Vital Signs Vital Signs Vital Signs: 09/29/24 02:19 09/29/24 02:23 09/29/24 02:25 Temperature 99.1 F 99.1 F Temperature Source Oral Oral Pulse Rate 140 H 140 H Respiratory Rate 24 H 25 H Respiratory Effort Short of Breath Respiratory Pattern Tachypnea Blood Pressure 190/92 H 190/92 H Blood Pressure Mean 124 124 Pulse Ox 94 96 Oxygen Delivery Method Nasal Cannula Nasal Cannula Nasal Cannula Oxygen Flow Rate (L/min) 3 3 3 09/29/24 03:00 09/29/24 03:23 Temperature 98.8 F Temperature Source Oral Pulse Rate 119 H 116 H Respiratory Rate 20 H 24 H Respiratory Effort Respiratory Pattern Normal Blood Pressure 154/89 H Blood Pressure Mean 110 Pulse Ox 97 Oxygen Delivery Method Nasal Cannula Oxygen Flow Rate (L/min) 3 Weight Weight: 157 lb 10.088 oz Body Mass Index (BMI) 27.0 Physical Exam Narrative Physical Examination: General: Awake, alert, oriented x 3 and cooperative, seated upright in the ED bed, fatigued, persistent tachypnea and some accessory muscle usage but no overtdistress. Skin: Normal color, normal turgor, no icterus, no cyanosis. HEENT: AT/NC, EOMI, PERRLA, MMM, no carotid bruits or JVD noted. Lungs: Severely diffusely diminished, > bases, on home 3L NC supplementation, persistent tachypnea and some accessory muscle usage but no overt distress, occasional soft end expiratory wheezing but very minimal as very poor air movement noted, no rales or rhonchi. Heart: Mildly tachycardic with regular rhythm; no gallop, rub audible. Abdomen: Soft, overweight, NTTP, ND, normal BS, no no appreciated HSM. Extremities: No cyanosis, clubbing, or edema. Neurological: Patient awake, alert, oriented as noted, cognitive function intact; pupils equally reactive to light and accommodation, cranial nerves grossnormal, moving all 4 extremities, no focal deficits, strength severely globally decreased secondary to acute presentation complaints. Psychiatric: Affect appears fatigued, no acute evidence of depressive or anxietyfeelings but does have underlying history. Results Lab / Micro Data 09/29/24 02:30 09/29/24 02:30 Labs: Laboratory Results - last 24 hr 09/29/24 02:30: WBC 10.6, RBC 4.88, Hgb 13.6, Hct 41.7, MCV 85.5, MCH 27.9, MCHC32.6, RDW Std Deviation 40.6, RDW Coeff of Augustin 13.1, Plt Count 198, MPV 9.7, Immature Gran % (Auto) 0.500, Neut % (Auto) 78.5 H, Lymph % (Auto) 13.2 L, [place] % (Auto) 6.9, Eos % (Auto) 0.7, Baso % (Auto) 0.2, Absolute Neuts (auto) 8.4 H, Absolute Lymphs (auto) 1.40, Nucleated RBC % 0, Sodium 136, Potassium 4.4, Chloride 93 L, Carbon Dioxide 33.1 H, Anion Gap 10, BUN 18, Creatinine 0.70, Estim Creat Clear Calc 64.35, Est GFR (MDRD) Non-Af 94, BUN/Creatinine Ratio 25.5 H, Glucose 129 H, Calcium 8.9, Magnesium 2.0, NTpro BNP II 518 Micro: Microbiology 09/29/24 02:30 Mucosa - Nose SARS-CoV-2, Influenza & RSV (PCR) - Final Imaging Radiology Impression Chest X-Ray 09/29/24 02:47 IMPRESSION: Stable appearance of the chest. Emphysematous changes without evidence of an acute cardiopulmonary abnormality. Reading Location: [id number] Assessment & Plan Assessment/Plan (1) COPD with acute exacerbation: PLAN: Plan The patient is a 69 y/o F w/ PMHx: GERD, RLS, Anxiety and Depression, Former tobacco use, Former EtOH Abuse, Hx Non-small cell lung cancer status post right lung lobectomy remotely 2003, COPD/Asthma with Chronic Hypoxic Respiratory Failure with allergic rhinitis, HTN who presents to the [facility] ED on 09/29/2024 with history of ~ 1 weeks worsening dyspnea, wheezing, nonproductive cough prompting her to utilize aggressive nebulizer treatments at home as well as increasing her home chronic prednisone therapy but unfortunatelyshe continued to have worsening symptoms more severe over the last 24 hours withno recent fever, chills, URI type symptoms prompting eventual ED evaluation. #1. Acute on Chronic COPD exacerbation with chronic hypoxic respiratory failure: Will admit to PCU,will obtain ABG, will maintain on oxygen with wean as tolerated to home oxygen supplementation, continue ATC duonebs, PRN albuterol, IV methylprednisolone, HOB, IS parameters, will obtain sputum Cx, respiratory viral panel, procalcitonin, will hold on immediately abx therapy butlow threshold to addif appropriate. #2. History non-small cell lung cancer: Patient diagnosed remotely, status postright lung lobectomy, considered in remission, encourage continued follow-up outpatient as previously arranged. #3. Hypertension: Continue home regimen including verapamil, PRN hydralazine. #4. Restless leg syndrome: Will continue patient on Requip regimen. #5. Anxiety and depression: Will continue patient on sertraline and low-dose lorazepam regimen. #6. Allergic rhinitis: Will continue patient home montelukast and fluticasone regimen. #7. Former alcohol abuse: Patient with previous heavy alcohol use, encourage continued sobriety. #8. Former tobacco use: Patient just recently quit approximately 3 weeks prior,had smoked in the past and quit previously but apparently it picked up again. Encourage continued tobacco cessation. #9. GERD: Will continue patient on PPI. #10. DVT prophylaxis: Lovenox. #11. CODE status: Patient HCPOA and living will are not in place but she notes she would want Meño significant other to be her medical decision-maker if necessary. Discussed CODE status at length including difference between FULL code, DNR-CCA and DNR-CC status. Following discussions about thedifferences in these status, requested Full Code status. Charges/Coding Visit Charges Inpatient E&M: 48706 Init Hosp L3 09/29/24 0432 Cosigner Signature (if applicable): CC: Dr. Dionne Porter MD; Dr. Yoseph Fall MD~ Signed [facility]06-06-2025 Radiology Diagnostic study note [facility] Imaging Services [address] [place], [place] [address] Chest PA and Lateral MR#: [id number] Acct: [id number] Name: DENIA GONZALEZ Rep #: [id number] : 1955 F 69 From: Yaquelin Lindquist MD PCP: Dr. Yoseph Fall MD Status: RE G ER Study:Chest PA and Lateral Date of Exam: 09/29/24 Exam# [id number] Ordering Dr: Silvia Jeff DO PROCEDURE: CHEST PA AND LATERAL 09/29/2024 REASON FOR EXAM: DYSPNEA TECHNIQUE: Frontal and lateral views of the chest. COMPARISON: Chest radiographs on 10/18/2023 and 07/20/2023 FINDINGS: Hardware: None Heart: The heart size is normal. Mediastinum: The mediastinal contour is stable. Surgical clips in the right perihilar region. Lungs: Flattening of the hemidiaphragms. Chronic streaky opacity in the right upper lung zone. No new focal consolidation. No significant pleural effusion. Bones: Degenerative changes are identified within the thoracic spine. RAD/Chest PA and Lateral IMPRESSION: Stable appearance of the chest. Emphysematous changes without evidence of an acute cardiopulmonary abnormality. Reading Location: [id number] CC: Dr. Yoseph Fall MD; Riley Jeff DO ~ Special Effects Makeup Artist: Signed [facility]06-05-2025 Telephone encounter Note* Telephone Encounter - Yoseph Fall MD - 09/28/2024 4:57 PM EDT OK to refill as ordered Yoseph Fall MD [facility]06-05-2025 Miscellaneous Notes* Telephone Encounter - Yoseph Fall MD - 09/28/2024 4:57 PM EDT OK to refill as ordered Yoseph Fall MD * Telephone Encounter - Judy Bliss RN - 09/28/2024 4:33 PM EDT The patient has been identified by name and date of : Yes Caregiver verified no other encounters exist for this prescription request: Yes Caregiver confirmed with patient/requestor that no other refills are due, in the near future, with this provider at this time: Yes The last office visit in the department: 07/06/2024- Virtual 02/19/2023- In office Does the patient have a future office visit with this provider/department: No Requested Prescriptions Pending Prescriptions Disp Refills busPIRone (BUSPAR) 10 mg tablet 60 tablet 2 Sig: Take 1 tablet by mouth two times a day. Judy Bliss RN September 28, 2024 4:34 PM [facility] Telephone encounter Note * Telephone Encounter - Judy Bliss RN - 09/28/2024 4:33 PM EDT The patient has been identified by name and date of : Yes Caregiver verified no other encounters exist for this prescription request: Yes Caregiver confirmed with patient/requestor that no other refills are due, in the near future, with this provider at this time: Yes The last office visit in the department: 07/06/2024- Virtual 02/19/2023- In office Does the patient have a future office visit with this provider/department: No Requested Prescriptions Pending Prescriptions Disp Refills busPIRone (BUSPAR) 10 mg tablet 60 tablet 2 Sig: Take 1 tablet by mouth two times a day. Judy Bliss RN September 28, 2024 4:34 PM [facility]2025 Telephone encounter Note* Telephone Encounter - Nelson Robert APRN.CNP - 08/29/2024 11:07 AM EDT The following approved medication requests have been transmitted electronically. Requested Prescriptions Pending Prescriptions Disp Refills ipratropium-albuterol (DUONEB) 0.5 mg-3 mg(2.5 mg base)/3 mL nebu 360 mL 2 Sig: inhale 1 ampule via nebulizer every 4 hours if needed for wheezing. Use over 5 to 15 minutes Nelson Robert APRN.CNP [facility]2025 Miscellaneous Notes* Telephone Encounter - Nelson Robert APRN.CNP - 08/29/2024 11:07 AM EDT The following approved medication requests have been transmitted electronically. Requested Prescriptions Pending Prescriptions Disp Refills ipratropium-albuterol (DUONEB) 0.5 mg-3 mg(2.5 mg base)/3 mL nebu 360 mL 2 Sig: inhale 1 ampule via nebulizer every 4 hours if needed for wheezing. Use over 5 to 15 minutes Nelson Robert APRN.CNP * Telephone Encounter - Elma Smith - 08/29/2024 10:53 AM EDT Prescription Refill Information The patient has been [...] 29, 2024 10:54 AM [facility] Telephone encounter Note * Telephone Encounter - Elma Smith - 08/29/2024 10:53 AM EDT Prescription Refill Information The patient has been [...] wheezing. Use over 5 to 15 minutes [facility] August 29, 2024 10:54 AM [facility]04-22-2025 Telephone encounter Note* Telephone Encounter - Nelson Robert APRN.CNP - 08/15/2024 11:32 AM EDT Approved. PDMP website checked and validated. All prescriptions have been APPROPRIATELY filled. No suspiciousactivity was identified. 08/15/2024 by Nelson Robert APRN.CNP The following approved medication requests have been transmitted electronically. Requested Prescriptions Signed Prescriptions Disp Refills HYDROcodone-acetaminophen (NORCO) 5-325 mg per tablet 30 tablet 0 Sig: Take 1 tablet by mouth two times a day as needed for pain for up to 30 days. Authorizing Provider: NELSON ROBERT APRN.CNP [facility]04-22-2025 Miscellaneous Notes* Telephone Encounter - Nelson Robert APRN.CNP - 08/15/2024 11:32 AM EDT Approved. PDMP website checked and validated. All prescriptions have been APPROPRIATELY filled. No suspiciousactivity was identified. 08/15/2024 by Nelson Robert APRN.CNP The following approved medication requests have been transmitted electronically. Requested Prescriptions Signed Prescriptions Disp Refills HYDROcodone-acetaminophen (NORCO) 5-325 mg per tablet 30 tablet 0 Sig: Take 1 tablet by mouth two times a day as needed for pain for up to 30 days. Authorizing Provider: NELSON ROBERT APRN.CNP * Telephone Encounter - Jennifer Hennessy LPN - 08/15/2024 10:52 AM EDT Prescription Refill Information The patient has been [...] 15, 2024 10:53 AM documented in [facility] encounterReg[facility] Telephone encounter Note * Telephone Encounter - Jennifer Hennessy LPN - 08/15/2024 10:52 AM EDT Prescription Refill Information The patient has been [...] Hennessy LPN August 15, 2024 10:53 AM [facility] [place] Telephone encounter Note* Telephone Encounter - Clarisse Anguiano RN - 07/24/2024 6:11 PM EDT Pt significant other Mike called and is notified of providers results and instructions. He voices understanding. Clarisse Anguiano RN [facility] [place]03-31-2025 Miscellaneous Notes* Telephone Encounter - Clarisse Anguiano RN - 07/24/2024 6:11 PM EDT Pt significant other Mike called and is notified of providers results and instructions. He voices understanding. Clarisse Anguiano RN * Telephone Encounter - Yoseph Fall MD - 07/24/2024 5:08 PM EDT She may try taking 40 mg of prednisone (she has 10 mg tablets at home) for 3 days and see if this clears up the rash; sounds like an allergic reaction. Yoseph Fall MD * Telephone Encounter - Clarisse Anguiano RN - 07/24/2024 4:23 PM EDT Pts significant other Mike called in and reports Pt was wanting provider to call in medication fora rash she has. He states the Pt does not go out of house and she is on O2. Pt received a new shirtand wore it without washing it and rash is in area where shirt was. It is a flat red rash that it itchy. Pt denies skin being warm or running a fever. Denies rash having any heads on them. I told him provider may want to have a VV so he can see the rash. He states the Pt has a branch service representative that come in tomorrow and she could try and help the Pt with a VV. He states she usually does phone visits. I told him the provider may need to see the rash. Pt was wanting the provider to order an antibiotic for it. Mike states he knows a cream could probably be called in. Please call and advise Pt. [facility] [place] Telephone encounter Note * Telephone Encounter - Yoseph Fall MD - 07/24/2024 5:08 PM EDT She may try taking 40 mg of prednisone (she has 10 mg tablets at home) for 3 days and see if this clears up the rash; sounds like an allergic reaction. Yoseph Fall MD [facility] [place]03-31-2025 Telephone encounter Note* Telephone Encounter - Clarisse Anguiano RN - 07/24/2024 4:23 PM EDT Pts significant other Mike called in and reports Pt was wanting provider to call in medication fora rash she has. He states the Pt does not go out of house and she is on O2. Pt received a new shirtand wore it without washing it and rash is in area where shirt was. It is a flat red rash that it itchy. Pt denies skin being warm or running a fever. Denies rash having any heads on them. I told him provider may want to have a VV so he can see the rash. He states the Pt has a branch service representative that come in tomorrow and she could try and help the Pt with a VV. He states she usually does phone visits. I told him the provider may need to see the rash. Pt was wanting the provider to order an antibiotic for it. Mike states he knows a cream could probably be called in. Please call and advise Pt. [facility] [place]03-19-2025 Telephone encounter Note* Telephone Encounter - Sukhi Marrero RN - 07/12/2024 2:47 PM EDT Jenni with [facility] calls to request chart notes to support patients need for continued oxygen. Most recent visits have all been distant [facility]. Jenni requests most recent visit be faxed. Faxed to [phone] per request. Sukhi Marrero RN [facility] [place]03-19-2025 Miscellaneous Notes* Telephone Encounter - Sukhi Marrero RN - 07/12/2024 2:47 PM EDT Jenni with [facility] calls to request chart notes to support patients need for continued oxygen. Most recent visits have all been distant health. Jenni requests most recent visit be faxed. Faxed to [phone] per request. Sukhi Marrero RN documented in this encounterRegency Hospital [place]25 History of Present illness Narrative* Yoesph Fall MD - 07/06/2024 2:00 PM EDT Chief Complaint Patient presents [...] licensure. The patient's identity and physical location wereverified at the time of this visit. Either the patient or their legal medical device sales representative has been informed of the risks and benefits of -- and alternatives to -- treatment through a remote evaluation andconsents to proceed with the evaluation remotely. Completing tele-health visit for routine follow up. Pt reports that she has a lady coming from [facility] tomorrow and asking what shots she [...] 10 mg BID was added to regimen lastvisit to help with her anxiety. COPD: Breathing not doing the greatest right now. Checks pulse at home running 93-94 with 2.5-3 L constantly. On current regimen of Prednisone 10 mg 1.5 pills every other day, Albuterol inhaler prn, Singulair 10 mg daily, Spiriva 18 daily and Advair inhaler BID, and nebulizer prn. Uses O2 at 2.5-3 L. Pain: Chronic back; taking [place] 5-325 mg 1 pill BID as needed. She is weaning off this medication.Is taking Tylenol prn and Flexeril 10 mg 1 pill BID as needed. HTN: Checking BP at home, but believes machine may be failing or not working properly. Reading today was 91/65 (pulse 73). Taking Verapamil 240 mg daily and Losartan 50 mg half pill as needed when BPis over 150/90. No chest pains, dizziness, or [...] lung, unspecified site (HCC) 04/26/2003 [place] ([place] infarction) (HCC) 10-10 taken to [facility] heart stopped Obstructive chronic bronchitis with [...] two times a day as needed for musclespasm. montelukast (SINGULAIR) 10 mg tablet Take 1 tablet by mouth once daily. nystatin (MYCOSTATIN) 100,000 unit/mL suspension Take 5 mL by mouth four times daily. 1tsp swish inmouth for several minutes, then swallow (or expectorate) [...] Puffs as instructed every 4 hours asneeded. ipratropium-albuterol (DUONEB) 0.5 mg-3 mg(2.5 mg base)/3 mL nebu inhale 1 ampule via nebulizer every 4 hours if needed for wheezing. Use over 5 to 15 minutes fluticasone-salmeterol (ADVAIR DISKUS) 500-50 mcg/dose dsdv Inhale 1 Puff as instructed two times aday. Rinse and gargle mouth with water after [...] as directred Disposable Gloves (DISPOSABLE LATEX-FREE GLOVES) [facility] Box once every month. ICD 10: [...] Nothing since 03/2012. Drug use: No EXAM: [facility] 02/27/2005 Phone visit Health Maintenance List BP [...] Past Histories independently gathered by the clinical sales support rep and the remaining scribed note accurately describes my personal service to the patient. 11-20 minutes of time spent on phone call Yoseph Fall MD The documentation for this note was completed by Sanjana Baca MA acting as scribe for Yoseph Fall MD. July 06, 2024 2:02 PM. Sanjana Baca MA documented in this encounterRegency Hospital [place]-13-2025 NoteHNO ID: [id number] Author: YOSEPH FALL MD Service: ? Author [...] visit. Either the patient or their legal medical device sales representative has been informed of the risks and benefits of -- and alternatives to -- treatment through a remote evaluation and consents to proceed with the evaluation remotely. Completing tele-health visit for routine follow up. Pt reports that she has a lady coming from [facility] tomorrow and asking what shots she [...] at 2.5-3 L. Pain: Chronic back; taking [place] 5-325 mg 1 pill BID as needed. [...] lung, unspecified site (HCC) 04/26/2003 Lung [place] ([place] infarction) (HCC) 10-10 taken to [facility] heart stopped Obstructive chronic bronchitis with [...] muscle spasm. montelukast (SINGULAIR) (more content not included)...[facility] 06-22-2024 Telephone encounter Note* Telephone Encounter - Brynn Watson LPN - 06/22/2024 10:51 AM EST The patient has been identified by name [...] Watson LPN June 22, 2024 10:53 AM [facility] [place]02-27-2025 Miscellaneous Notes* Telephone Encounter - Brynn Watson LPN - 06/22/2024 10:51 AM EST The patient has been identified by name [...] 22, 2024 10:53 AM documented in this encounterRegency Hospital [place]-24-2025 Telephone encounter Note * Telephone Encounter - Yoseph Fall MD - 06/19/2024 12:48 PM EST OK to refill as ordered Yoseph Fall MD [facility] [place]02-24-2025 Miscellaneous Notes* Telephone Encounter - Yoseph Fall MD - 06/19/2024 12:48 PM EST OK to refill as ordered Yoseph Fall MD * Telephone Encounter - Richard Mora LPN - 06/19/2024 9:31 AM EST The patient has been identified by name [...] for pain for up to 30 days. Richard Mora LPN June 19, 2024 9:31 AM documented in this encounterRegency Hospital [place]-24-2025 Telephone encounter Note * Telephone Encounter - Richard Mora LPN - 06/19/2024 9:31 AM EST The patient has been identified by name [...] for pain for up to 30 days. Richard Mora LPN June 19, 2024 9:31 AM [facility] [place]02-17-2025 Telephone encounter Note* Telephone Encounter - Sanjana Baca MA - 06/12/2024 3:39 PM EST Form completed and faxed back to information below. Sanjana Baca MA [facility] [place]02-17-2025 Miscellaneous Notes* Telephone Encounter - Sanjana Baca MA - 06/12/2024 3:39 PM EST Form completed and faxed back to information below. Sanjana Baca MA * Telephone Encounter - Sanjana Baca MA - 06/12/2024 12:44 PM EST Type of form: Medical Necessity for incontinence supplies. Form received via fax When form is completed, Fax form to [phone] Form has been forwarded to Physician Desk: Dr. Eufemia Baca MA documented in this encounterRegency Hospital [place]02-17-2025 Telephone encounter Note * Telephone Encounter - Sanjana Baca MA - 06/12/2024 12:44 PM EST Type of form: Medical Necessity for incontinence supplies. Form received via fax When form is completed, Fax form to [phone] Form has been forwarded to Physician Desk: Dr. Eufemia Baca MA [facility] [place]02-07-2025 Telephone encounter Note* Telephone Encounter - Ban VillafanaLAURIE - 06/02/2024 8:11 AM EST Images from the original note were not included. Electronic PA rec'd and completed for cyclobenzaprine. This was denied. Note from payer: CaseId:[id number];Status:Denied;Review Type:Prior Auth;Appeal Information: Attention:ATTN: MEDICARE CLINICAL [employer] [address] [address],[place],[address] WebAddress:[email or web address]; Important - Please read the below note on e Appeals: Please reference the denial letter for information [...] for a decision on the appeal.; Payer: [employer] [phone] Electronic appeal: Supported View History Notes Time [...] to its destination. To be filled at: [facility] [address] - [place] [address] [address] [facility] - [phone] [facility] [place]02-07-2025 Miscellaneous Notes* Telephone Encounter - Ban Villafana LPN - 06/02/2024 8:11 AM EST Images from the original note were not included. Electronic PA rec'd and completed for cyclobenzaprine. This was denied. Note from payer: CaseId:[id number];Status:Denied;Review Type:Prior Auth;Appeal Information: Attention:ATTN: MEDICARE CLINICAL [employer] [address] [address],[place], [place],[address] WebAddress:[email or web address]; Important - Please read the below note on e Appeals: Please reference the denial letter for information [...] for a decision on the appeal.; Payer: [employer] [phone] Electronic appeal: Supported View History Notes Time [...] to its destination. To be filled at: [facility] [address] [place] [address] [address] [facility] - [phone] documented in this encounterRegency Hospital [place]02-06-2025 Telephone encounter Note * Telephone Encounter - Yoseph Fall MD - 06/01/2024 3:18 PM EST OK to refill as ordered Yoseph Fall MD [facility] [place]02-06-2025 Miscellaneous Notes* Telephone Encounter - Yoseph Fall MD - 06/01/2024 3:18 PM EST OK to refill as ordered Yoseph Fall MD * Telephone Encounter - Meenu Gurrola RN - 06/01/2024 2:45 PM EST Please see bolded note below. The patient [...] 01, 2024 2:45 PM documented in this encounterRegency Hospital [place]02-06-2025 Telephone encounter Note * Telephone Encounter - Meenu Gurrola RN - 06/01/2024 2:45 PM EST Please see bolded note below. The patient [...] Gurrola RN June 01, 2024 2:45 PM [facility] [place]01-21-2025 Telephone encounter Note* Telephone Encounter - Yoseph Fall MD - 05/16/2024 10:33 AM EST OK to refill as ordered Yoseph Fall MD [facility] [place]01-21-2025 Miscellaneous Notes* Telephone Encounter - Yoseph Fall MD - 05/16/2024 10:33 AM EST OK to refill as ordered Yoseph Fall MD * Telephone Encounter - Sukhi Marrero RN - 05/16/2024 10:30 AM EST The patient has been identified by name [...] in mouth for several minutes, then swallow (orexpectorate) 4 times daily until gone. Sukhi Marrero RN May 16, 2024 10:31 AM documented in this encounterRegency Hospital [place]01-21-2025 Telephone encounter Note * Telephone Encounter - Sukhi Marerro RN - 05/16/2024 10:30 AM EST The patient has been identified by name [...] in mouth for several minutes, then swallow (orexpectorate) 4 times daily until gone. Sukhi Marrero RN May 16, 2024 10:31 AM [facility] [place]01-21-2025 NotePatient Outreach (FAMPWS) DENIA GONZALEZ ([id number]) 1955 F Date Time Provider Department 05/16/24 YOSPEH FALL During your visit today, we recorded the following information about you: Allergies As of Date: 05/16/2024 (No Known Allergies) Date Reviewed: 04/07/2024 Reviewed by: Sanjana Baca MA - Fully Assessed Visit Diagnosis:Encounter for screening mammogram for breast cancer [Z12.31] Order(s):MICKIE MARINO W RASHAUN [[id number]] Order #: [id number] FUTURE Prescriptions as of 06/16/2024 - cyclobenzaprine [...] directed. Dx: COPD J44.9 - Nebulizer Accessories [facility] Mask and supplies as needed - PULSE OXIMETER [facility] Use as directed to check oxygen saturation level - ammonium lactate (AMLACTIN) 12 % lotion Apply 1 application to affected area as needed for Dry Skin. - losartan (COZAAR) 50 mg tablet Take 0.5 tablets by mouth once daily. - OXYGEN, HOME THERAPY, 2.5 L/min by Nasal Cannula route continuous. Use as directred - Disposable Gloves (DISPOSABLE LATEX-FREE GLOVES) [facility] Box once every month. ICD 10: [...] [Z51.81] 05/16/2021 Chronic respiratory failure with hypoxia ([facility]) *02/20/2022 Cigarette smoker [F17.210] 02/20/2022 Obstructive chronic bronchitis with exacerbatio* Encounter Status:Closed by MascomaSANDRINEUSER on 06/16/24[facility] 04-10-2024 Telephone encounter Note* Telephone Encounter - Nelson Robert APRN.CNP - 04/10/2024 12:37 PM EST The following approved medication requests have been transmitted electronically. Requested Prescriptions Pending Prescriptions Disp Refills tiotropium (SPIRIVA) 18 mcg inhalation capsule 30 capsule 11 Sig: Inhale 1 capsule as instructed once daily. Nelson Robetr APRN.CNP [facility] [place]12-16-2024 Miscellaneous Notes* Telephone Encounter - Nelson Robert APRN.CNP - 04/10/2024 12:37 PM EST The following approved medication requests have been transmitted electronically. Requested Prescriptions Pending Prescriptions Disp Refills tiotropium (SPIRIVA) 18 mcg inhalation capsule 30 capsule 11 Sig: Inhale 1 capsule as instructed once daily. Nelson Robert APRN.[place] * Telephone Encounter - Judy Bliss RN - 04/10/2024 12:21 PM EST The patient has been identified by name [...] 10, 2024 12:21 PM documented in this encounterRegency Hospital [place]12-16-2024 Telephone encounter Note * Telephone Encounter - Judy Bliss RN - 04/10/2024 12:21 PM EST The patient has been identified by name [...] Bliss RN April 10, 2024 12:21 PM [facility] [place]12-13-2024 History of Present illness Narrative* Yoseph Fall MD - 04/07/2024 8:40 AM EST Chief Complaint Patient presents with: F/U 3 Month HPI:This Team Access Model visit is a virtual encounter. It required patient- provider interaction for [...] licensure. The patient's identity and physical location wereverified at the time of this visit. Either the patient or their legal medical device sales representative has been informed of the risks and benefits of -- and alternatives to -- treatment through a remote evaluation andconsents to proceed with the evaluation remotely. Tobacco - care home use of cigarettes, but is working very hard on cutting down. Notes increased usage due to stress. Dog recently , grand daughter in hospital. GI/Uro - Denies any stomach, bowel or urinary issues. GERD - Symptoms stable with use of Prilosec 20 mg once daily. Pain - Chronic back pain that is currently being treated with Ocean Park 5-325 mg 1 tab po bid prn. [...] to putting down her beagle of 14 years.Also notes granddaughter in [facility]. Trying to learn to live her anxiety [...] lung, unspecified site (HCC) 04/26/2003 [place] ([place] infarction[place] (HCC) 10-10 taken to [facility] heart stopped Obstructive chronic bronchitis with [...] Puffs as instructed every 4 hours asneeded. ipratropium-albuterol (DUONEB) 0.5 mg-3 mg(2.5 mg base)/3 mL nebu inhale 1 ampule via nebulizer every 4 hours if needed for wheezing. Use over 5 to 15 minutes nystatin (MYCOSTATIN) 100,000 unit/mL suspension Take 5 mL by mouth four times daily. 1tsp swish inmouth for several minutes, then swallow (or expectorate) 4 times daily until gone. fluticasone-salmeterol (ADVAIR DISKUS) 500-50 mcg/dose dsdv Inhale 1 Puff as instructed two times aday. Rinse and gargle mouth with water after use. cyclobenzaprine (FLEXERIL) 10 mg tablet Take 1 tablet by mouth two times a day as needed for musclespasm. rOPINIRole (REQUIP) 0.25 mg tablet Take 1 [...] Mask and supplies as needed PULSE OXIMETER [facility] Use as directed to check oxygen saturation level ammonium lactate (AMLACTIN) 12 % lotion Apply 1 application to affected area as needed for Dry Skin. losartan (COZAAR) 50 mg tablet Take 0.5 tablets by mouth once daily. OXYGEN, HOME THERAPY, 2.5 L/min by Nasal Cannula route continuous. Use as directred Disposable Gloves (DISPOSABLE LATEX-FREE GLOVES) [facility] Box once every month. ICD 10: [...] kg (165 lb) LMP 02/27/2005 SpO2 93% BMI29.23 kg/m Health Maintenance List BP Controlled (<130/80) [...] Past Histories independently gathered by the clinical sales support rep and the remaining scribed note accurately describes my personal service to the patient. 11-20 minutes of time spent on phone call Yoseph Fall MD The documentation for this note was completed by Sanjana Baca MA acting as scribe for Yoseph Fall MD. April 07, 2024 8:48 AM. Sanjana Baca MA documented in this encounterRegency Hospital [place]12-13-2024 NoteHNO ID: [id number] Author: YOSEPH FALL MD Service: ? Author [...] visit. Either the patient or their legal medical device sales representative has been informed of the risks and benefits of -- and alternatives to -- treatment through a remote evaluation and consents to proceed with the evaluation remotely. Tobacco - care home use of cigarettes, but is working very hard on cutting down. Notes increased usage due to stress. Dog recently , grand daughter in hospital. GI/Uro - Denies any stomach, bowel or urinary issues. GERD - Symptoms stable with use of Prilosec 20 mg once daily. Pain - Chronic back pain that is currently being treated with [place] 5-325 mg 1 tab po bid prn. [...] of 14 years. Also notes granddaughter in [facility]. Trying to learn to live her anxiety [...] lung, unspecified site (HCC) 04/26/2003 [place] (HCC) 10-10 taken to [facility] heart stopped Obstructive chronic bronchitis with [...] HISTORY Procedure Laterality Date CONIZATION CERVIX W/WO DANGA RPR ELTRD EXC 2003 Dr. Danis BRYSON [...] File Prior to Visit (more content not included)...[facility]11-27-2024 Telephone encounter Note* Telephone Encounter - Vickie Niño LPN - 03/22/2024 9:03 AM EST left message to notify patient that med has been sent into pharmacy. Vickie Niño LPN [facility] [place]11-27-2024 Miscellaneous Notes* Telephone Encounter - Vickie Niño LPN - 03/22/2024 9:03 AM EST left message to notify patient that med has been sent into pharmacy. Vickie Niño LPN * Telephone Encounter - Iman Person APRN.[place] - 03/22/2024 8:51 AM EST The following approved medication requests have been transmitted electronically. Requested Prescriptions Signed Prescriptions Disp Refills amoxicillin (AMOXIL) 875 mg tablet 20 tablet 0 Sig: Take 1 tablet by mouth two times a day for 10 days. Authorizing Provider: IMAN PERSON APRN.CNP * Telephone Encounter - Judy Bliss RN - 03/21/2024 3:50 PM EST Patient's significant other Mike calls and states that patient does not leave house. Mike reportsthat patient has a gum infection and that patient needs antibiotic for this gum infection. Mike reports that patient cannot come into appointment because she does not leave house. Mike asking if anantibiotic can be sent to pharmacy for gum infection? Please review and advise, Judy Bliss RN documented in this encounterRegency Hospital [place]11-27-2024 Telephone encounter Note * Telephone Encounter - Iman Person APRN.CNP - 03/22/2024 8:51 AM EST The following approved medication requests have been transmitted electronically. Requested Prescriptions Signed Prescriptions Disp Refills amoxicillin (AMOXIL) 875 mg tablet 20 tablet 0 Sig: Take 1 tablet by mouth two times a day for 10 days. Authorizing Provider: IMAN PERSON APRN.CNP [facility]11-26-2024 Telephone encounter Note* Telephone Encounter - Judy Bliss RN - 03/21/2024 3:50 PM EST Patient's significant other Mike calls and states that patient does not leave house. Mike reportsthat patient has a gum infection and that patient needs antibiotic for this gum infection. Mike reports that patient cannot come into appointment because she does not leave house. Mike asking if anantibiotic can be sent to pharmacy for gum infection? Please review and advise, Judy Bliss RN [facility]11-25-2024 Telephone encounter Note* Telephone Encounter - Nelson Robert APRN.CNP - 03/20/2024 12:52 PM EST Continue weaning off. Now down to 30 tablets. PDMP website checked and validated. All prescriptions have been APPROPRIATELY filled. No suspiciousactivity was identified. 03/20/2024 by Nelson Robert APRN.CNP The following approved medication requests have been transmitted electronically. Requested Prescriptions Signed Prescriptions Disp Refills HYDROcodone-acetaminophen (NORCO) 5-325 mg per tablet 30 tablet 0 Sig: Take 1 tablet by mouth two times a day as needed for pain for up to 30 days. Authorizing Provider: NELSON ROBERT APRN.CNP [facility]11-25-2024 Miscellaneous Notes* Telephone Encounter - Nelson Robert APRN.CNP - 03/20/2024 12:52 PM EST Continue weaning off. Now down to 30 tablets. PDMP website checked and validated. All prescriptions have been APPROPRIATELY filled. No suspiciousactivity was identified. 03/20/2024 by Nelson Robert APRN.CNP The following approved medication requests have been transmitted electronically. Requested Prescriptions Signed Prescriptions Disp Refills HYDROcodone-acetaminophen (NORCO) 5-325 mg per tablet 30 tablet 0 Sig: Take 1 tablet by mouth two times a day as needed for pain for up to 30 days. Authorizing Provider: NELSON ROBERT APRN.CNP * Telephone Encounter - Sukhi Marrero RN - 03/20/2024 12:49 PM EST The patient has been identified by name [...] 20, 2024 12:49 PM documented in this encounterRegency Hospital [place]11-25-2024 Telephone encounter Note * Telephone Encounter - Sukhi Marrero RN - 03/20/2024 12:49 PM EST The patient has been identified by name [...] Marrero RN March 20, 2024 12:49 PM [facility]11-08-2024 Telephone encounter Note* Telephone Encounter - Nelson Robert APRN.CNP - 03/03/2024 11:53 AM EST The following approved medication requests have been transmitted electronically. Requested Prescriptions Pending Prescriptions Disp Refills predniSONE (DELTASONE) 10 mg tablet 30 tablet 5 Sig: Take 1.5 tablets by mouth every other day. Nelson Robert APRN.CNP [facility]11-08-2024 Miscellaneous Notes* Telephone Encounter - Nelson Robert APRN.CNP - 03/03/2024 11:53 AM EST The following approved medication requests have been transmitted electronically. Requested Prescriptions Pending Prescriptions Disp Refills predniSONE (DELTASONE) 10 mg tablet 30 tablet 5 Sig: Take 1.5 tablets by mouth every other day. Nelson Robert APRN.CNP * Telephone Encounter - Judy Bliss RN - 03/03/2024 11:23 AM EST The patient has been identified by name and date of : Yes Caregiver verified no other encounters exist for this prescription request: Yes Caregiver confirmed with patient/requestor that no other refills are due, in the near future, with this provider at this time: Yes The last office visit in the department: 11/29/2023- [facility] Does the patient have a future office visit with this provider/department: No Visit date not found Requested Prescriptions Pending Prescriptions Disp Refills predniSONE (DELTASONE) 10 mg tablet 30 tablet 5 Sig: Take 1.5 tablets by mouth every other day. Judy Bliss RN March 03, 2024 11:23 AM [facility] Telephone encounter Note * Telephone Encounter - Judy Bliss RN - 03/03/2024 11:23 AM EST The patient has been identified by name and date of : Yes Caregiver verified no other encounters exist for this prescription request: Yes Caregiver confirmed with patient/requestor that no other refills are due, in the near future, with this provider at this time: Yes The last office visit in the department: 11/29/2023- [facility] Does the patient have a future office visit with this provider/department: No Visit date not found Requested Prescriptions Pending Prescriptions Disp Refills predniSONE (DELTASONE) 10 mg tablet 30 tablet 5 Sig: Take 1.5 tablets by mouth every other day. Judy Bliss RN March 03, 2024 11:23 AM [facility]10-21-2024 Telephone encounter Note* Telephone Encounter - Nelson Robert APRN.CNP - 02/14/2024 11:55 AM EDT Approved. PDMP website checked and validated. All prescriptions have been APPROPRIATELY filled. No suspiciousactivity was identified. 02/14/2024 by Nelson Robert APRN.CNP [...] 15 minutes Authorizing Provider: NELSON ROBERT APRN.CNP [facility]-21-2024 Miscellaneous Notes* Telephone Encounter - Nelson Robert APRN.CNP - 02/14/2024 11:55 AM EDT Approved. PDMP website checked and validated. All prescriptions have been APPROPRIATELY filled. No suspiciousactivity was identified. 02/14/2024 by Nelson Robert APRN.CNP [...] 15 minutes Authorizing Provider: NELSON ROBERT APRN.CNP * Telephone Encounter - Brynn Watson LPN - 02/14/2024 11:26 AM EDT The patient has been identified by name [...] 14, 2024 11:28 AM documented in this encounterReg[facility]10-[facility]-2024 Telephone encounter Note * Telephone Encounter - Brynn Watson LPN - 02/14/2024 11:26 AM EDT The patient has been identified by name [...] Watson LPN February 14, 2024 11:28 AM [facility] Telephone encounter Note* Telephone Encounter - Lauren Duarte MA - 02/04/2024 8:25 AM EDT Pt informed, verbalized understanding. Lauren Duarte MA [facility]24 Miscellaneous Notes* Telephone Encounter - Lauren Duarte MA - 02/04/2024 8:25 AM EDT Pt informed, verbalized understanding. Lauren Duarte MA * Telephone Encounter - Yoseph Fall MD - 02/04/2024 8:16 AM EDT OK for amoxicillin as ordered. If she does not improve over the weekend she would need to be seen. Yoseph Fall MD * Telephone Encounter - Judy Bliss RN - 02/03/2024 4:56 PM EDT Patient's significant other calls and states that he thinks she has a gum infection. Left side bottom of the face. Daughter and Patient had called previously and said that patient has had a toothachex 1 week. Patient and daughter was advised by previous triage nurse that patient needs to be seen in office for evaluation. Significant other calling again to see if provider can send in antibiotic. Please review and advise, Judy Bliss RN documented in this encounterReg[facility]10-11-2024 Telephone encounter Note * Telephone Encounter - Yoseph Fall MD - 02/04/2024 8:16 AM EDT OK for amoxicillin as ordered. If she does not improve over the weekend she would need to be seen. Yoseph Fall MD [facility]-10-[facility]24 Telephone encounter Note* Telephone Encounter - Judy Bliss RN - 02/03/2024 4:56 PM EDT Patient's significant other calls and states that he thinks she has a gum infection. Left side bottom of the face. Daughter and Patient had called previously and said that patient has had a toothachex 1 week. Patient and daughter was advised by previous triage nurse that patient needs to be seen in office for evaluation. Significant other calling again to see if provider can send in antibiotic. Please review and advise, Judy Bliss RN [facility]-10[facility] Telephone encounter Note* Telephone Encounter - Martínez Louie RN - 02/03/2024 1:22 PM EDT Daughter reports patient has had a toothache [...] to for evaluation. Patient and daughter agreeable. [facility]-10[facility]24 Miscellaneous Notes* Telephone Encounter - Martínez Louie RN - 02/03/2024 1:22 PM EDT Daughter reports patient has had a toothache [...] Patient and daughter agreeable. documented in this encounterReg[facility]09-24-2024 Telephone encounter Note * Telephone Encounter - Nelson Robert APRN.CNP - 01/18/2024 12:01 PM EDT Approved PDMP website checked and validated. All prescriptions have been APPROPRIATELY filled. No suspiciousactivity was identified. 01/18/2024 by Nelson Robert APRN.CNP The following approved medication requests have been transmitted electronically. Requested Prescriptions Signed Prescriptions Disp Refills HYDROcodone-acetaminophen (NORCO) 5-325 mg per tablet 32 tablet 0 Sig: Take 1 tablet by mouth two times a day as needed for pain for up to 30 days. Authorizing Provider: NELSON ROBERT APRN.CNP [facility]-24-[facility]24 Miscellaneous Notes* Telephone Encounter - Nelson Robert APRN.CNP - 01/18/2024 12:01 PM EDT Approved PDMP website checked and validated. All prescriptions have been APPROPRIATELY filled. No suspiciousactivity was identified. 01/18/2024 by Nelson Robert APRN.CNP The following approved medication requests have been transmitted electronically. Requested Prescriptions Signed Prescriptions Disp Refills HYDROcodone-acetaminophen (NORCO) 5-325 mg per tablet 32 tablet 0 Sig: Take 1 tablet by mouth two times a day as needed for pain for up to 30 days. Authorizing Provider: NELSON ROBERT APRN.CNP * Telephone Encounter - Sukhi Marrero RN - 01/18/2024 9:24 AM EDT The patient has been identified by name [...] 18, 2024 9:25 AM documented in this encounterReg[facility]09-24-2024 Telephone encounter Note * Telephone Encounter - Sukhi Marrero RN - 01/18/2024 9:24 AM EDT The patient has been identified by name [...] Marrero RN January 18, 2024 9:25 AM [facility] Telephone encounter Note* Telephone Encounter - Yoseph Fall MD - 12/24/2023 9:48 AM EDT OK to refill as ordered Yoseph Fall MD [facility]24 Miscellaneous Notes* Telephone Encounter - Yoseph Fall MD - 12/24/2023 9:48 AM EDT OK to refill as ordered Yoseph Fall MD * Telephone Encounter - Giovanna Johnson - 12/24/2023 9:25 AM EDT Prescription Refill Information The patient has been [...] 24, 2023 9:26 AM documented in this encounterReg[facility]-30-2024 Telephone encounter Note * Telephone Encounter - Giovanna Johnson - 12/24/2023 9:25 AM EDT Prescription Refill Information The patient has been [...] Giovanna Carrillo December 24, 2023 9:26 AM [facility] Work Phone: [phone]) 862-767408-05-2024 History of Present illness Narrative* Yoseph Fall MD - 11/29/2023 5:40 PM EDT Chief Complaint No chief complaint on file. [...] licensure. The patient's identity and physical location wereverified at the time of this visit. Either the patient or their legal medical device sales representative has been informed of the risks and benefits of -- and alternatives to -- treatment through a remote evaluation andconsents to proceed with the evaluation remotely. 3 [...] days. Notes this hot weather is not makingbreathing easy. Using Prednisone once every other day. Follows with Dr. Ramirez Frank. On Singulair 10 mg daily, Albuterol inhaler prn, Prednisone 105 mg every other day, Advair BID and Spiriva once daily. On 2.5-3 L oxygen. Uses Nebulizer prn. Pain: Chronic pain; is being weaned off [place] 5-325 mg down to#32/month, taking 1 pill BID prn. Also uses Flexeril 10 mg BID prn. Worried pain will not be controlled on anything less than 2 norco perday. At times pain gets bad, having to use Tylenol. Wishes her [place] would be increased. GERRY/Depression: Stable, still has occ bad days where she has anxiety attacks. Notes anxiety overalldoing so-so. November is a rough month for [...] lung, unspecified site (HCC) 04/26/2003 Lung cancer [place] (myocardial infarction) (HCC) 10-10 taken to [facility] heart stopped Obstructive chronic bronchitis with exacerbation ([facility]) COPD Other abnormal Papanicolaou smear of cervix [...] two times a day as needed for musclespasm. HYDROcodone-acetaminophen (NORCO) 5-325 mg per tablet Take [...] by mouth four times daily. 1tsp swish inmouth for several minutes, then swallow (or expectorate) [...] Inhale 1 Puff as instructed two times aday. Rinse and gargle mouth with water after use. albuterol HFA (VENTOLIN HFA) 90 mcg/actuation inhaler Inhale 2 Puffs as instructed every 4 hours asneeded. Nebulizer and Compressor For Neb Use as directed. Dx: COPD J44.9 Nebulizer Accessories mis Mask and supplies as needed PULSE OXIMETER CONTE Use as directed to check oxygen saturation level ammonium lactate (AMLACTIN) 12 % lotion Apply 1 application to affected area as needed for Dry Skin. losartan (COZAAR) 50 mg tablet Take 0.5 tablets by mouth once daily. OXYGEN, HOME THERAPY, 2.5 L/min by Nasal Cannula route continuous. Use as directred Disposable Gloves (DISPOSABLE LATEX-FREE GLOVES) [facility] [place] once every month. ICD 10: [...] call Yoseph Fall MD documented in this encounterRegency [facility]07-23-2024 Telephone encounter Note * Telephone Encounter - Yoseph Fall MD - 11/16/2023 1:32 PM EDT OK to refill as ordered Yoseph Fall MD [facility]24 Miscellaneous Notes* Telephone Encounter - Yoseph Fall MD - 11/16/2023 1:32 PM EDT OK to refill as ordered Yoseph Fall MD * Telephone Encounter - Sukhi Marrero RN - 11/16/2023 12:02 PM EDT The patient has been identified by name [...] 16, 2023 12:02 PM documented in this encounterRegency Hospital [facility]07-23-2024 Telephone encounter Note * Telephone Encounter - Sukhi Marrero RN - 11/16/2023 12:02 PM EDT The patient has been identified by name [...] Marrero RN November 16, 2023 12:02 PM [facility]24 Telephone encounter Note* Telephone Encounter - Ban Villafana LPN - 11/08/2023 9:26 AM EDT The office rec'd and completed an electronic [...] drug. This restriction has been approved by [facility]. This restriction only applies to patients greater [...] this decision on the coverage criteria for: [address]67 [place] Standard MEDD Prior Authorization Policy - HIGH RISK MEDICATIONS - CYCLOBENZAPRINE [facility]-15-2024 Miscellaneous Notes* Telephone Encounter - Ban Villafana LPN - 11/08/2023 9:26 AM EDT The office rec'd and completed an electronic [...] the Centers for Medicare and Medicaid Services ([facility]) for use in evaluating Part D coverage. Your plan's formulary has a restriction on this drug. This restriction has been approved by [facility]. This restriction only applies to patients greater [...] this decision on the coverage criteria for: [address] [place] Standard MEDD Prior Authorization Policy - HIGH RISK MEDICATIONS - CYCLOBENZAPRINE documented in this encounterRegency Hospital [facility]07-12-2024 Telephone encounter Note * Telephone Encounter - Iman Person APRN.CNP - 11/05/2023 12:07 PM EDT The following approved medication requests have been transmitted electronically. Requested Prescriptions Pending Prescriptions Disp Refills cyclobenzaprine (FLEXERIL) 10 mg tablet 60 tablet 0 Sig: Take 1 tablet by mouth two times a day as needed for muscle spasm. Iman Person APRN.CNP [facility]-12-2024 Miscellaneous Notes* Telephone Encounter - Iman Person APRN.CNP - 11/05/2023 12:07 PM EDT The following approved medication requests have been transmitted electronically. Requested Prescriptions Pending Prescriptions Disp Refills cyclobenzaprine (FLEXERIL) 10 mg tablet 60 tablet 0 Sig: Take 1 tablet by mouth two times a day as needed for muscle spasm. Iman Person APRN.CNP * Telephone Encounter - Richard Mora LPN - 11/05/2023 11:50 AM EDT Pt calling to get a refill on medication below. Pt never started Tizanadine. Pt takes medication below and this helps with muscle spasms. Please let pt know when this has been sentto the pharmacy. Richard Mora LPN The patient has been identified [...] a day as needed for muscle spasm. Richard Mora LPN November 05, 2023 11:51 AM documented in this encounterRegency Hospital [facility]07-12-2024 Telephone encounter Note * Telephone Encounter - Richard Mora LPN - 11/05/2023 11:50 AM EDT Pt calling to get a refill on medication below. Pt never started Tizanadine. Pt takes medication below and this helps with muscle spasms. Please let pt know when this has been sentto the pharmacy. Richard Mora LPN The patient has been identified [...] a day as needed for muscle spasm. Richard Mora LPN November 05, 2023 11:51 AM [facility] Telephone encounter Note* Telephone Encounter - Brynn Watson LPN - 10/22/2023 2:21 PM EDT Phoned patient and went over notes from Dr Fall with understanding. Aware rx sent to pharmacy. [facility]24 Miscellaneous Notes* Telephone Encounter - Brynn Watson LPN - 10/22/2023 2:21 PM EDT Phoned patient and went over notes from Dr Fall with understanding. Aware rx sent to pharmacy. * Telephone Encounter - Yoseph Fall MD - 10/22/2023 2:14 PM EDT OK for another Zpak as ordered Yoseph Fall MD * Telephone Encounter - Naima Haines MA - 10/22/2023 1:09 PM EDT No fevers. She is coughing a little bit. The congestion has mostly cleared. She did get some improvement with the zpak she was given but doesn't feel that the infection is completely resolved. Please advise. Notify pt with providers decision. Uses [facility]. Naima Haines MA * Telephone Encounter - Naima Haines MA - 10/22/2023 11:54 AM EDT Tried to reach pt, line picks up, can hear back ground noise but no one says anything. Will try again later. Naima Haines MA * Telephone Encounter - Yoseph Fall MD - 10/22/2023 11:47 AM EDT Did she get any better with the Zpak she was given in the ER? If so I would consider refill of that. If it did not help would use a different antibiotic. Yoseph Fall MD * Telephone Encounter - Naima Haines MA - 10/22/2023 10:26 AM EDT ER report attached. Scan on 10/18/2023 6:02 AM by Provider, MARY Howe: Consultation - Emergency Medicine * Telephone Encounter - Connor Velez - 10/22/2023 10:18 AM EDT Pt has requested that an antibiotic is called in for her. States she was just seen in the EmergencyRoom last week, however; is still having a discolored mucus with cough. Please advise. documented in this encounterRegency Hospital [facility]06-28-2024 Telephone encounter Note * Telephone Encounter - Yoseph Fall MD - 10/22/2023 2:14 PM EDT OK for another Zpak as ordered Yoseph Fall MD [facility] Telephone encounter Note* Telephone Encounter - Naima Haines MA - 10/22/2023 1:09 PM EDT No fevers. She is coughing a little bit. The congestion has mostly cleared. She did get some improvement with the zpak she was given but doesn't feel that the infection is completely resolved. Please advise. Notify pt with providers decision. [facility]ses [facility]. Naima Haines MA [facility] Telephone encounter Note* Telephone Encounter - Naima Haines MA - 10/22/2023 11:54 AM EDT Tried to reach pt, line picks up, can hear back ground noise but no one says anything. Will try again later. Naima Haines MA [facility]-28-[facility]24 Telephone encounter Note* Telephone Encounter - Yoseph Fall MD - 10/22/2023 11:47 AM EDT Did she get any better with the Zpak she was given in the ER? If so I would consider refill of that. If it did not help would use a different antibiotic. Yoseph Fall MD [facility] Telephone encounter Note* Telephone Encounter - Naima Haines MA - 10/22/2023 10:26 AM EDT ER report attached. Scan on 10/18/2023 6:02 AM by Provider, MARY Howe: Consultation - Emergency Medicine [facility]-28-2024 Telephone encounter Note* Telephone Encounter - Connor Velez - 10/22/2023 10:18 AM EDT Pt has requested that an antibiotic is called in for her. States she was just seen in the EmergencyRoom last week, however; is still having a discolored mucus with cough. Please advise. [facility] Miscellaneous Notes* Telephone Encounter - Yoseph Fall MD - 10/18/2023 12:10 PM EDT OK to refill as ordered Yoseph Fall MD * Telephone Encounter - Martínez Louie RN - 10/18/2023 9:46 AM EDT The patient has been identified by name [...] 1 tablet by mouth daily at bedtime. Martínez Louie RN October 18, 2023 9:49 AM documented in this encounterRegency Hospital [facility]06-24-2024 Telephone encounter Note * Telephone Encounter - Yoseph Fall MD - 10/18/2023 12:10 PM EDT OK to refill as ordered Yoseph Fall MD [facility]24 Telephone encounter Note* Telephone Encounter - Martínez Louie RN - 10/18/2023 9:46 AM EDT The patient has been identified by name [...] 1 tablet by mouth daily at bedtime. Martínez Louie RN October 18, 2023 9:49 AM [facility]-07-2024 Telephone encounter Note* Telephone Encounter - Naima Haines MA - 10/01/2023 1:48 PM EDT The following approved medication requests have been transmitted electronically. Requested Prescriptions Signed Prescriptions Disp Refills tiZANidine (ZANAFLEX) 4 mg tablet 90 tablet 5 Sig: Take 1 tablet by mouth every 8 hours as needed (muscle spasms). Authorizing Provider: YOSEPH FALL MA [facility]06-07-2024 Miscellaneous Notes* Telephone Encounter - Naima Haines MA - 10/01/2023 1:48 PM EDT The following approved medication requests have been transmitted electronically. Requested Prescriptions Signed Prescriptions Disp Refills tiZANidine (ZANAFLEX) 4 mg tablet 90 tablet 5 Sig: Take 1 tablet by mouth every 8 hours as needed (muscle spasms). Authorizing Provider: YOSEPH FALL MA * Telephone Encounter - Yoseph Fall MD - 10/01/2023 1:29 PM EDT OK for zanaflex as ordered Yoseph Fall MD * Telephone Encounter - Sukhi Marrero RN - 10/01/2023 11:53 AM EDT [id number] calls to ask if provider would send in a different prescription than flexeril d/t having to pay for medication. Recommended contacting insurance to see what medication is covered and it was requested to just send something in as they can never get a hold of anyone at the insurance company. [facility]acy [facility] Marrero RN documented in this encounterRegency Hospital [facility]06-07-2024 Telephone encounter Note * Telephone Encounter - Yoseph Fall MD - 10/01/2023 1:29 PM EDT OK for zanaflex as ordered Yoseph Fall MD [facility]-07-2024 Telephone encounter Note* Telephone Encounter - Sukhi Marrero RN - 10/01/2023 11:53 AM EDT [id number] calls to ask if provider would send in a different prescription than flexeril d/t having to pay for medication. Recommended contacting insurance to see what medication is covered and it was requested to just send something in as they can never get a hold of anyone at the insurance company. Pharmacy [facility] Marrero RN [facility]-29[facility]2024 Telephone encounter Note* Telephone Encounter - Nelson Robert APRN.CNP - 09/22/2023 11:43 AM EDT The following approved medication requests have been transmitted electronically. Requested Prescriptions Pending Prescriptions Disp Refills ipratropium-albuterol (DUONEB) 0.5 mg-3 mg(2.5 mg base)/3 mL nebu 360 mL 2 Sig: inhale 1 ampule via nebulizer every 4 hours if needed for wheezing. Use over 5 to 15 minutes Nelson Robert APRN.CNP [facility]-29-2024 Miscellaneous Notes* Telephone Encounter - Nelson Robert APRN.CNP - 09/22/2023 11:43 AM EDT The following approved medication requests have been transmitted electronically. Requested Prescriptions Pending Prescriptions Disp Refills ipratropium-albuterol (DUONEB) 0.5 mg-3 mg(2.5 mg base)/3 mL nebu 360 mL 2 Sig: inhale 1 ampule via nebulizer every 4 hours if needed for wheezing. Use over 5 to 15 minutes Nelson Robert APRN.CNP * Telephone Encounter - Louisa Mckay - 09/22/2023 11:07 AM EDT Patient has been identified by [...] Thank you. Louisa Nobles. documented in this encounterRegency Hospital [facility]05-29-2024 Telephone encounter Note * Telephone Encounter - Louisa Mckay - 09/22/2023 11:07 AM EDT Patient has been identified by [...] 11/23/2023 Please advise. Thank you. Louisa Nobles. [facility]-23-2024 Telephone encounter Note* Telephone Encounter - Yoseph Fall MD - 09/16/2023 8:11 AM EDT OK to refill as ordered Yoseph Fall MD [facility]-23-2024 Miscellaneous Notes* Telephone Encounter - Yoseph Fall MD - 09/16/2023 8:11 AM EDT OK to refill as ordered Yoseph Fall MD * Telephone Encounter - Louisa Mckay - 09/15/2023 2:09 PM EDT Patient has been identified by [...] care: 11/23/2023 Please advise. Thank you. Louisa [facility]. documented in this encounterRegency Hospital [facility]05-22-2024 Telephone encounter Note * Telephone Encounter - Iman Person APRN.CNP - 09/15/2023 7:09 PM EDT The following approved medication requests have been transmitted electronically. Requested Prescriptions Pending Prescriptions Disp Refills fluticasone (FLONASE) 50 mcg/actuation nasal spray 48 g 11 Sig: use 2 sprays in each nostril daily. Rinse mouth after use Iman Person APRN.CNP [facility]-22-2024 Miscellaneous Notes* Telephone Encounter - Iman Person APRN.CNP - 09/15/2023 7:09 PM EDT The following approved medication requests have been transmitted electronically. Requested Prescriptions Pending Prescriptions Disp Refills fluticasone (FLONASE) 50 mcg/actuation nasal spray 48 g 11 Sig: use 2 sprays in each nostril daily. Rinse mouth after use Iman Person APRN.CNP * Telephone Encounter - Essie Medina RN - 09/15/2023 1:01 PM EDT Patient has been identified by [...] you. Essie Medina RN. documented in this encounterRegency Hospital [facility]05-22-2024 Telephone encounter Note * Telephone Encounter - Louisa Mckay - 09/15/2023 2:09 PM EDT Patient has been identified by [...] 11/23/2023 Please advise. Thank you. Louisa Nobles. [facility]-22-2024 Telephone encounter Note* Telephone Encounter - Essie Medina RN - 09/15/2023 1:01 PM EDT Patient has been identified by [...] Please advise. Thank you. Essie Medina RN. [facility]-29[facility] History of Present illness Narrative* Yoseph Fall MD - 08/23/2023 2:40 PM EDT Chief Complaint Patient presents with: F/U 3 Month HPI:This Team Access Model visit is a virtual encounter. It required patient- provider interaction for [...] licensure. The patient's identity and physical location wereverified at the time of this visit. Either the patient or their legal medical device sales representative has been informed of the risks and benefits of -- and alternatives to -- treatment through a remote evaluation andconsents to proceed with the evaluation remotely. Pt [...] On current regimen of Singulair 10 mg daily,Albuterol Inhaler prn, Prednisone 20 mg prn, Advair bid and Spiriva once daily. Pain: uses Flexeril 10 mg daily, [place] 5-325 mg 1 pill BID prn, taking [...] lung, unspecified site (HCC) 04/26/2003 [place] cancer [place] (my[place] infarction) (HCC) 10-10 taken to [facility] heart stopped Obstructive chronic bronchitis with [...] by mouth four times daily. 1tsp swish inmouth for several minutes, then swallow (or expectorate) [...] Inhale 1 Puff as instructed two times aday. Rinse and gargle mouth with water after use. cyclobenzaprine (FLEXERIL) 10 mg tablet Take 1 tablet by mouth two times a day as needed for musclespasm. ipratropium-albuterol (DUONEB) 0.5 mg-3 mg(2.5 mg base)/3 mL nebu inhale 1 ampule via nebulizer every 4 hours if needed for wheezing. Use over 5 to 15 minutes albuterol HFA (VENTOLIN HFA) 90 mcg/actuation inhaler Inhale 2 Puffs as instructed every 4 hours asneeded. Nebulizer and Compressor For Neb Use as directed. Dx: COPD J44.9 Nebulizer [facility] Mask and supplies as needed rOPINIRole (REQUIP) 0.25 mg tablet Take 1 tablet by mouth daily at bedtime. PULSE OXIMETER [facility] Use as directed to check oxygen [...] as directred Disposable Gloves (DISPOSABLE LATEX-FREE GLOVES) mis 1 Box once every month. ICD 10: [...] Bone Density Screening due on 2020 Covid-19 Vaccine(2022- season) due on 12/25/2022 Advance Directive Discussion [...] Past Histories independently gathered by the clinical sales support rep and the remaining scribed note accurately describes my personal service to the patient. 11-20 minutes of time spent on phone call Yoseph Fall MD The documentation for this note was completed by Naima Haines MA acting as scribe for Yoseph Fall MD. August 23, 2023 2:19 PM. Naima Haines MA documented in this encounterRegency Hospital [facility]04-02-2024 Miscellaneous Notes* Telephone Encounter - Yoseph Fall MD - 07/27/2023 10:49 AM EDT OK to refill as ordered Yoseph Fall MD * Telephone Encounter - Brynn Watson LPN - 07/27/2023 10:41 AM EDT Patient has been identified by [...] you. Brynn Watson LPN. documented in this encounterRegency Hospital [facility]04-01-2024 History of Present illness Narrative* Yoseph Fall MD - 07/26/2023 7:20 PM EDT Transitional Care Management TCM Eligibility Documentation The following information was gathered during patient outreach 07/26/2023 07/26/2023 Date of Outreach: Outreach Attempt 1: Contact Made Date of Discharge 07/22/2023 Virtual Visit Audio Only Visit was used for evaluation of this patient; due to patient lack of technology I have communicated my name and active licensure. The patient's identity and physical location wereverified at the time of this visit. Either the patient or their legal medical device sales representative has been informed of the risks and benefits of -- and alternatives to -- treatment through a remote evaluation andconsents to proceed with the evaluation remotely. Provider [...] for hospital follow up. Pt admitted into [facility] on 07/20/23 and discharged on 07/22/23. [...] 5 day, has one more pill to take.Prednisone 10 mg taper 4 tabs 3 days, 3 tabs 3 days, 2 tabs 3 days, 1 tab 3 days and 1/2 tab for 4 days. Nicorette 2 mg gum, states her K[employer]rsc[employer]-ym-jer was picking this up today. SUMMARY: -Pt discharged from [facility] on 07/22/23. Pt admitted on 07/20/23. [...] a past medical history of essential hypertension, overweight;with BMI of 27.2 this admission, history of ongoing tobacco abuse; with subsequent steroid-dependent COPD, chronic hypoxic respiratory failure; on 2.5L NC, history of non-small cell lung cancer; s/p R ight lobectomy, RLS, depression with anxiety, GERD and OA who presents to [facility] ER complaining of shortness of breath, wheezing and cough with green sputum. Ms. Gonzalez reports her symptoms began approximately 2 days prior to admission with a gradual onset of dyspnea on exertionthat progressed to shortness of breath at rest. [...] was diagnosed with acute exacerbation of COPD withclinical evidence of zigwm-os-gzashgj hypoxic respiratory insufficiency likely due to recent viral U RI in the setting of ongoing tobacco abuse [...] right now. I discussed with her the possibilityfor discharge she expressed understanding Solo of is going home and she would still like to go home. Her sputum culture did come back positive for strep agalactiae as well as a gram-negative clementina Idid elect to discharge her on Levaquin for [...] enlargement Borderline ECG Confirmed by Junito Madrid ([id number]), marketing editor CLARISSE RAMIREZ ([id number]) on 07/20/2023 1:47:04 PM Chest XR 07/20/23: [...] KB 30 S Records were obtained from [facility]where for continuity of care. VIDEO EXAMINATION [...] call Yoseph Fall MD documented in this encounterRegency Hospital [facility]04-01-2024 History of Present illness Narrative* Sanjana Baca MA - 07/26/2023 10:20 AM EDT TRANSITION CARE MANAGEMENT (TCM) INITIAL CONTACT [facility] Outreach Provider Action/FYI: Pt reports that she's [...] added abx, steroids and nicorette gum, which SAMEERA is picking this up today. Wants to quit smoking. Has 1 more day of abx. Initial contact with patient post discharge, spoke to patient. Patient identified by name and . TRANSITION CARE MANAGEMENT INITIAL OUTREACH DOCUMENTATION: 07/26/2023 Date of Outreach: Date of Discharge 07/22/2023 SUMMARY: -Pt discharged from [facility] on 07/22/23. Pt admitted on 07/20/23. [...] a past medical history of essential hypertension, overweight;with BMI of 27.2 this admission, history of ongoing tobacco abuse; with subsequent steroid-dependent COPD, chronic hypoxic respiratory failure; on 2.5L NC, history of non-small cell lung cancer; s/p R ight lobectomy, RLS, depression with anxiety, GERD and OA who presents to [facility] ER complaining of shortness of breath, wheezing and cough with green sputum. Ms. Gonzalez reports her symptoms began approximately 2 days prior to admission with a gradual onset of dyspnea on exertionthat progressed to shortness of breath at rest. [...] was diagnosed with acute exacerbation of COPD withclinical evidence of lvmjv-tq-lphyciz hypoxic respiratory insufficiency likely due to recent viral U RI in the setting of ongoing tobacco abuse [...] right now. I discussed with her the possibilityfor discharge she expressed understanding Solo of is going home and she would still like to go home. Her sputum culture did come back positive for strep agalactiae as well as a gram-negative clementina Idid elect to discharge her on Levaquin for [...] enlargement Borderline ECG Confirmed by Junito Madrid ([id number]), marketing editor CLARISSE RAMIREZ ([id number]) on 07/20/2023 1:47:04 PM Chest XR 07/20/23: [...] KB 30 S Records were obtained from [facility] Everywhere for continuity of care. Do you [...] taper 4 tabs 3 days, 3 tabs 3days, 2 tabs 3 days, 1 tab 3 [...] home? Yes Medical records from recent hospitalization: [facility] Everywhere/[facility] records Sanjana Baca MA documented in this encounterRegency Hospital [facility]03-28-2024 Discharge summary Author Jan Bolanos [facility] July 22, 2023 4:12pm Note Date/Time July 22, 2023 4:0 4pm [facility] Medical Records Department [address] [place] [address] Instructions for Home/Discharge Instructions 07/22/23 1603 MR#: [id number] Acct: [id number] Name: DENIA GONZALEZ Rep #:[id number] : 1955 68 From: Jan brennan MD [...] be discussed in further detail at your follow- up appointment, if applicable. Discharge Plan Admission Admit [...] can be placed): Home, Self Care 07/22/23 1612<Electronically signed by Jan Bolanos MD>Jan Bolanos MD CC: Dr. José Cunningham DO; Dr. Yoseph Fall MD ~ Signed [facility] Work Phone: 1(932) 222-589203-28-2024 Discharge summary Author Jan [facility] July 22, 2023 4:18pm Note Date/Time July 22, 2023 4:1 7pm [facility] Medical Records Department [address] [place] [address] Discharge Summary 07/22/231611 MR#: [id number] Acct: [id number] Name: DENIA GONZALEZ Rep #:[id number] : 1955 68 From: Jan brennan MD PCP: Dr. Yoseph Fall MD Status:AD IN Location: [place] [address] Providers Date of Admission: 07/20/23 Primary Care Physician: Dr. Yoseph Fall MD Reason For Visit: ACUTE EXACERBATION OF COPD WITH IMPIP-HC-XSKKTCD Diagnosis Discharge Diagnosis (1) COPD with acute [...] anxiety, GERD and OA who presents to [facility] ER complaining of shortness of [...] exacerbation of COPD with clinical evidence of kllkt-rj-mxwrqfv hypoxic respiratory insufficiency likely due to recent [...] Self Care Charges/Coding Visit Charges Inpatient E&M: 97564 Disch Hosp >30min 07/22/23 1618 <Electronically signed by Jan Bolanos MD> Cosigner Signature (if applicable): CC: Dr. Yoseph Fall MD; Dr. Jan Bolanos MD~ Signed [facility] Work Phone: 1(880) 449-118003-28-2024 Progress note Author Jan Bolanos [facility] July 22, 2023 11:02am Note Date/Time July 22, 2023 11: 02am [facility] Medical Records Department [address] [place] [address] Progress Note - Hospitalist 07/22/23 1101 MR#: [id number] Acct: [id number] Name: DENIA GONZALEZ Rep #:[id number] : 1955 68 From: Jan brennan MD PCP: Dr. Yoseph Fall MD Status:AD M IN [id number] Subjective Subjective Doing well, feels like she [...] DVT: Lovenox Charges/Coding Visit Charges Inpatient E&M: 17267 Subs Hosp L2 07/22/23 1102 <Electronically signed by Jan Bolanos MD> Cosigner Signature (if applicable): CC: ~ Signed [facility] Work Phone: 1(586) 206-976903-27-2024 Progress note Author Jan Bolanos [facility] July 21, 2023 10:28am Note Date/Time July 21, 2023 10: 25am [facility] Medical Records Department [address] [place] [address] Progress Note - Hospitalist 07/21/23 1013 MR#: [id number] Acct: [id number] Name: DENIA GONZALEZ Rep #:[id number] : 1955 68 From: Jan brennan MD PCP: Dr. Yoseph Fall MD Status:AD M IN [place] [facility] [id number] Subjective Subjective She feels about the same [...] 88.1 H, Lymph % (Auto) 8.8 L, [place] %(Auto) 2.7, Eos % (Auto) 0.0, Baso [...] DVT: Lovenox Charges/Coding Visit Charges Inpatient E&M: 73234 Subs Hosp L2 07/21/23 1028 <Electronically signed by Jan Bolanos MD> Cosigner Signature (if applicable): CC: ~ Signed [facility] Work Phone: 1(392) 566-553603-26-2024 Discharge summary Author Dallas Mena [facility] July 20, 2023 6:49am Note Date/Time July 20, 2023 3:0 9am [facility] Medical Records Department [address] [place] [address] Emergency Department Summary 07/20/23 MR#: [id number] Acct: [id number] Name: DENIA GONZALEZ Rep #:[id number] : 1955 68 From: Dallas Mena MD PCP: Dr. Yoseph Fall MD Status:AD M IN Location: [place] [address] HPI History of Present Illness Chief Complaint: [...] % (Auto) 67.5 Lymph % (Auto) 23.7 [place] % (Auto) 7.6 Eos % (Auto) 0.6 [...] rate of 128. No acute signs of [place] or ischemia. Discharge Plan Triage Chief Complaint: [...] and wheezing. Disposition Disposition: Acute Care Hospital [facility] What to do if you have Problems For any increased pain, shortness of breath, bleeding, nausea or vomiting, chestpain, or any unexpected problems, contact your Primary Care Provider. Call [facility] ([phone]) or report to the closest Emergency Room. Call 911 if necessary. 07/20/23 0649 <Electronically signed by Dallas Mena MD> Cosigner Signature (if applicable): CC: Dr. Yoseph Fall MD ~ Signed [facility] Work Phone: 1(107) 965-629003-26-2024 Miscellaneous Notes* Telephone Encounter - Sanjana Baca MA - 07/20/2023 8:40 AM EDT Pt currently admitted into [facility] due to symptoms. Sanjana Baca MA [...] advise. Jennifer Hennessy LPN documented in this encounterRegency Hospital [facility]03-26-2024 History and physical note Author José Smith [facility] July 20, 2023 4:55am Note Date/Time July 20, 2023 4:2 4am [facility] Medical Records Department [address] [place] [address] [place] [address] H&P Exam - Hospitalist 07/20/23 0406 MR#: [id number] Acct: [id number] Name: DENIA GONZALEZ Rep #:[id number] : 1955 68 From: José Abebe DO PCP: Dr. Yoseph Fall MD Status:AD M IN [place] [facility] [place]758-2 [facility] Date of Admission: 07/20/23 Date of Service: [...] anxiety, GERD and OA who presents to [facility] ER complaining of shortness of [...] exacerbation of COPD with clinical evidence of kwguy-no-xieggdm hypoxic respiratory insufficiency likely due to recent viral URI in the setting of ongoing tobacco abuse and she was then admitted to the general medical floor forongoin care for stay that is expected to be greater than 48 hours. [facility] albuterol sulfate 90 mcg/actuation aerosol [...] % (Auto) 67.5, Lymph % (Auto) 23.7, [place]% (Auto) 7.6, Eos % (Auto) 0.6, Baso [...] needed nebulizers. Give Tylenol as needed for elqe-kk-uycpkxig(level 1- 5/10) pain or fever. Continue Percocet prn for severe (level 6-10/10) pain. Tobacco cessation will be strongly encouraged with nicotine patch offeredto control cravings. 2. Viral URI likely triggering #1 - Check viral respiratory panel and placed oncontact and droplet precautions until confirmed negative. 3. Noaxh-lt-qzgossf hypoxic respiratory insufficiency arising from #1 & [...] 55 minutes. Charges/Coding Visit Charges Inpatient E&M: 92001 Init Hosp L2 07/20/23 9563 <Electronically signed by José Cunningham DO> Cosigner Signature (if applicable): CC: Dr. José Cunningham DO; Dr. Yoseph Fall MD~ Signed [facility] Work Phone: 1(428) 414-138703-04-2024 Miscellaneous Notes* Telephone Encounter - Yoseph Fall MD - 06/28/2023 3:59 PM EST OK to refill as ordered Yoseph Fall MD documented in this encounterRegency Hospital [facility]02-22-2024 Miscellaneous Notes* Telephone Encounter - Naima Haines Ma - 06/17/2023 11:12 AM EST Faxed. Naima Haines Ma * Telephone Encounter - Naima Haines Ma - 06/17/2023 9:58 AM EST Type of letter/form/fax request - Medical Necessity-incontinence supplies Form received from fax on 1 floor and placed on MD desk (Dr. Fall) for completion. Completed form needs to be faxed to [facility] at [phone]. Route to [place] when form completed for processing documented in this encounterRegency Hospital [facility]02-21-2024 Miscellaneous Notes* Telephone Encounter - Meenu Gurrola RN - 06/16/2023 1:00 PM EST Called and notified pt of change and that med is already at the pharmacy. * Telephone Encounter - Ysoeph Fall MD - 06/15/2023 5:06 PM EST [...] PM EST Covermymed PA cmpleted for tiotropium alina GONZALEZ ([place]: [id number]) - [id number] Spiriva HandiHaler 18MCG capsules Status: PA Request Created: June 11, 2023 [id number] Sent: June 14, 2023 documented in this encounterRegency Hospital [facility]edo02-20-2024 Miscellaneous Notes* Telephone Encounter - Sanjana Baca Ma - 06/15/2023 5:08 PM EST Pt called and notified that Rx has been sent in, verbalized understanding. Sanjana Baca Ma * Telephone Encounter - Yoseph Fall MD - 06/15/2023 4:56 PM EST OK for nystatin as ordered Yoseph Fall MD * Telephone Encounter - Martínez Louie, RN - 06/15/2023 1:37 PM EST Patient reports she has thrush in her mouth, on her tongue to her throat, coated with white. No pain. Reports she gets thrush from her inhaler, and pcp sends Rx to [facility]. Reports she is housebound and cannot come in to see pcp. Pended. Please call pt with reply. documented in this encounterRegency Hospital [facility]edo02-16-2024 Miscellaneous Notes* Telephone Encounter - Yoseph aFll MD - 06/11/2023 3:09 PM EST OK [...] you. Brynn Watson LPN. documented in this encounterRegency Hospital [facility]edo12-05-2023 Miscellaneous Notes* Telephone Encounter - Padmini Abbott RN - 03/30/2023 4:17 PM EST Pt's significant other, Mike Marysol calling. Requesting PCP office to fax orders for pt's nebulizer ,compressor and accessories to [facility] at FAX #: [phone], along with recent OV note. States pt receives other equipment from them and they would like to use their services. States they have not heard from [facility] when orders were originally faxed to them. Faxed as requested. Padmini Abbott RN documented in this encounterRegency Hospital [facility]edo11-22-2023 Miscellaneous Notes* Telephone Encounter - Roxanna Tineo [...] you. Roxanna Tineo LPN. documented in this encounterRegency Hospital [facility]edo10-27-2023 Instructions* Patient Instructions* Sanjana Baca Ma - 02/19/2023 2:31 PM EDT Check with Assistant Manager Pt on RSV vaccine. documented in this encounterRegency Hospital Toledo10-27-2023 History of Present illness Narrative* Yoseph Fall [...] is currently being weaned down on her [place] 5-325 mg, concerned about going any lower as she doesn't think her pain will be controlled. She is taking [place] 5-325 mg 1 pill bid prn, getting #33/month, and Flexeril 10 mg BID prn. [place] was decreased last visit from #35/month to [...] Agreeable to Flu shot today. Reports her Assistant Manager Pt, may be able to give her the [...] and lung, unspecified site 04/26/2003 Lung cancer [place] (myocardial infarction) (HCC) 10-10 taken to [facility] heart stopped Obstructive chronic bronchitis with [...] 4 hours asneeded. PULSE OXIMETER [facility] Use as directed to check oxygen [...] as directed. Dx: COPD J44.9 Nebulizer Accessories mis Mask and supplies as needed Fxoevvubihrax-QU-jpedYTXqten (MUCINEX FAST-MAX CONGEST-COUGH) 2.5-5-100 mg/5 mL liqd Take 10 mL by mouth three times daily as needed. OXYGEN, HOME THERAPY, 2.5 L/min by Nasal Cannula route continuous. Use as directred Disposable Gloves (DISPOSABLE LATEX-FREE GLOVES) [facility] 1 Box once every month. ICD 10: [...] Stage 3 severe COPD by GOLD classification ([facility]) - ICD9: 496, ICD10: J44.9 - Continue current medication regimen. - Send Nebulizer supplies to [facility] 8. Gastroesophageal reflux disease, unspecified whether esophagitis present - ICD9: 530.81, ICD10: K21.9 - Stable - Continue current medication regimen. 9. Chronic obstructive pulmonary disease, unspecified COPD type ([facility]) - ICD9: 496, ICD10: J44.9 - Continue [...] Past Histories independently gathered by the clinical sales support rep and the remaining scribed note accurately describes [...] PM. Sanjana Baca Ma documented in this encounterRegency Hospital [facility]edo09-22-2023 Miscellaneous Notes* Telephone Encounter - Nelson Robert [...] you. Sukhi Marrero, RN documented in this encounterRegency Hospital [facility]edo09-05-2023 Miscellaneous Notes* Telephone Encounter - Nelson Robert [...] 12/29/2022 12:32 PM EDT Pharmacy verified in [facility] Patient has been identified by name and [...] kg (173 lb) Not applicable Please advise. Mecredez Foster Pss documented in this encounterRegency Hospital [facility]edo08-17-2023 Miscellaneous Notes* Telephone Encounter - Meenu Hanks LPN - 12/10/2022 3:29 PM EDT Pt notfied Meenu Hanks LPN * Telephone Encounter - Yoseph Fall MD - 12/10/2022 2:38 PM EDT Order filed Yoseph Fall MD * Telephone Encounter - Byrnn Watson LPN - 12/10/2022 12:09 PM EDT Patient daughter calling mother had sent to her to picker packer stool sample, no order in computer. Computer shows at last office visit Dr was asking patient if she would do IFOBT and no order was put in the computer. Pending order needs diagnosis. Call patient when order in place so can picker packer kit. Please advise documented in this encounterRegency Hospital [facility]edo07-14-2023 Miscellaneous Notes* Telephone Encounter - Nelson Robert APRN.CNP - 11/06/2022 12:38 PM EDT The following approved medication requests have been transmitted electronically. Requested Prescriptions Pending Prescriptions Disp Refills cyclobenzaprine (FLEXERIL) 10 mg tablet 60 tablet 5 Sig: Take 1 tablet by mouth twice daily as needed for muscle spasm. Nelson Robert APRN.CNP * Telephone Encounter - Brynn Watson LPN [...] has one pill left. documented in this encounterRegency Hospital [facility]edo05-09-2023 Miscellaneous Notes* Telephone Encounter - Michelle Alvarez Ma - 09/01/2022 10:23 AM EDT Images from the original note were not included. Ran PA through again with covermymed and used different dx code and was approved but used differentdx Michelle Alvarez Ma * Telephone Encounter - Michelle Alvarez Ma - 09/01/2022 9:50 AM EDT Called [facility] to check status since no faxes have been received. PA states no PA needed will call pharmacy and have them run with specific NDC code. NDC: [id number] NDC: [id number] Called [facility] and they ran medication which is still [...] PAover the phone with rep PA # [id number] Michelle Alvarez Ma * Telephone Encounter - Michelle Alvarez Ma - 08/21/2022 3:46 PM EDT PA have never been completed for either med which needs done first before appeal letter. Completed Electronic PA for Advair was approved [facility] Tried calling patientbut no answer and vm full. PA completed through covermymeds for flexeril [place]: [id number] Michelle Alvarez Ma * Telephone Encounter - [...] know the fax number. Patient's insurance is [employer]. Asked patient what the phone number was for [employer] and she gave me a phone number that was not for [employer]. I asked if this was aprior authorization that was needed and she said she needed a letter. Please contact patient with any other questions. No chief complaint on file. Patient has been identified by name and birthdate. Duration of symptoms: N/A Person calling: self Call patient at: at home [phone] (home) [phone] (cell) Was an appointment scheduled: No Closing statement: Results or non-symptom based questions: Thank you for calling [facility], your call will be returned within the next business day. Orly Stacy documented in this encounterRegency Hospital [facility]03-10-2023 Miscellaneous Notes* Telephone Encounter - Naima Haines Ma - 07/03/2022 10:32 AM EST Faxed. Naima Haines Ma * Telephone Encounter - Naima Haines Ma - 07/02/2022 9:09 AM EST Type of letter/form/fax request - Medical Necessity-Incontinence supplies Form received from fax on [address] Fall's desk for completion. Completed form needs to be faxed to [facility] at [phone]. Route to [place] when form completed for processing documented in this encounterRegency Hospital [facility]edo03-06-2023 Miscellaneous Notes* Telephone Encounter - Nelson Robert [...] notify patient. Orly Stacy documented in this encounterRegency Hospital [facility]edo02-13-2023 Miscellaneous Notes* Telephone Encounter - Nelson Robert [...] you. Essie Medina RN documented in this encounterRegency Hospital Toledo01-20-2023 Miscellaneous Notes* Telephone Encounter - Yoseph Fall [...] Date of Last Labs: documented in this encounterRegency Hospital Toledo01-10-2023 Miscellaneous Notes* Telephone Encounter - Nelson Robert APRN.GRAPHIC DESIGN SPECIALIST - 05/05/2022 1:29 PM EST The following approved medication requests have been transmitted electronically. Requested Prescriptions Pending Prescriptions Disp Refills tiotropium (SPIRIVA WITH HANDIHALER) 18 mcg inhalation capsule 810 capsule 0 Sig: inhale 1 capsule by mouth as directed once daily Nelson Robert APRN.[place] * Telephone Encounter - Fawn Carrillo - [...] notify patient. Fawn Carrillo documented in this encounterRegency Hospital Toledo01-06-2023 History of Present illness Narrative* Yoseph Fall [...] is currently being weaned down on her [place] 5-325 mg. Does not think shecan go any lower on the [place]. Pt on current regimen of [place] 5-325 mg taking 1 tab po bid [...] was killed in [place]. COPD: Follows with Dr. Ramirez Frank. Still smoking; encouraged cessation. Has cut down [...] and lung, unspecified site 04/26/2003 Lung cancer [place] (my[place] infarction) (HCC) 10-10 taken to [facility] heart stopped Obstructive chronic bronchitis with [...] CHOLECYSTECTOMY W/CHOLANGIOGRAPHY 08/06/2016 PAST SURGICAL HISTORY OF 1988 polyp removed from throat PAST SURGICAL HISTORY [...] 4 hours asneeded. PULSE OXIMETER [facility] Use as directed to check oxygen [...] as directed. Dx: COPD J44.9 Nebulizer Accessories [facility] Mask and supplies as needed Cxhtefnofeivn-FQ-netcDVTkmrn (MUCINEX FAST-MAX CONGEST-COUGH) 2.5-5-100 mg/5 mL liqd Take 10 mL by mouth three times daily as needed. OXYGEN, HOME THERAPY, 2.5 L/min by Nasal Cannula route continuous. Use as directred Disposable Gloves (DISPOSABLE LATEX-FREE GLOVES) [facility] 1 Box once every month. ICD 10: [...] Pulse 105 Wt 78.5 kg (173 lb) [facility] 03/30/2005 BMI 30.65 kg/m Health Maintenance List [...] Past Histories independently gathered by the clinical sales support rep and the remaining scribed note accurately describes my personal service to the patient. 5-10 minutes of time spent on phone call Yoseph Fall MD The documentation for this note was completed by Naima Haines Ma acting as scribe for Yoseph Fall MD. May 01, 2022 2:41 PM. Naima Haines Ma documented in this encounterRegency [facility]12-27-2022 Miscellaneous Notes* Telephone Encounter - Yoseph Fall [...] up with PCP please. documented in this encounterRegency Hospital [facility]11-04-2022 Miscellaneous Notes* Telephone Encounter - Falguni Patton [...] file order for oxygen and fax to [facility] in [place]. This nurse does not see order in computer and it appears PCP has ordered oxygen in the past. Please call patient at [phone] when this has been completed or if there are any issues. documented in this encounterRegency Hospital [facility]10-28-2022 Procedure note* MUNA Cutler - 02/20/2022 1:25 [...] TIME: 1:25 PM Comment: documented in this encounterRegency Hospital [facility]10-28-2022 History of Present illness Narrative* MUNA Cutler - 02/20/2022 1:22 PM EDT PULM FUNCTION SMARTBLOCK: Provider: Michelle Guzmán MD Assisting Tech: MUNA Cutler Oximetry - Ambulation: 1 documented in this encounterRegency Hospital [facility]09-27-2022 Miscellaneous Notes* Telephone Encounter - Nelson Robert APRN.CNP - 01/20/2022 1:36 PM EDT Approved. [facility] website checked and validated. All prescriptions have [...] patient. Fina Mora Pss documented in this encounterRegency Hospital [facility]09-15-2022 Miscellaneous Notes* Telephone Encounter - Falguni Patton LPN - 01/08/2022 8:39 AM EDT Noted, thank you! Falguni Patton LPN * Telephone Encounter - Mini Pineda RN - 01/08/2022 8:31 AM EDT Bettie with [facility] calling in. States pt. needs to re-qualify for home O2. Pt. has not seen a [facility] for a while (former pt. of Dr. Huertas). This nurse instructed Bettie to have pt.call to set up consult/ appt with Dr. Guzmán. Bettie will do so. Mini Pineda RN documented in this encounterRegency Hospital [facility]08-25-2022 Miscellaneous Notes* Telephone Encounter - Naima Haines Ma - 12/18/2021 9:49 AM EDT Tried to notify pt of decrease in number of pills, VM full. Naima Haines Ma * Telephone Encounter - Yoseph Fall MD - 12/18/2021 9:07 AM EDT OK to refill as ordered Taper down to #35 pills/month Yoseph Fall MD * Telephone Encounter - Martínez Louie RN - 12/18/2021 8:48 AM EDT [...] this was a virtual visit Next appt: 9-30-22 this is a virtual visit. Last 2 [...] 15 05/11/2018 12 Please advise. Thank you. Martínez Louie RN documented in this encounterRegency Hospital [facility]07-25-2022 Miscellaneous Notes* Telephone Encounter - Nelson Robert [...] refill: 10/17/2021 * Telephone Encounter - Denia Annita Pss - 11/17/2021 8:45 AM EDT Patient [...] pharmacy. No need to notify patient. Denia Paulabrian Carrillo documented in this encounterRegency Hospital [facility]06-24-2022 History of Present illness Narrative* Yoseph Fall [...] is currently being weaned down on her [place] 5-325 mg. Pt on current regimen of [place] 5-325 mg taking 1 tab po bid [...] and lung, unspecified site 2003 Lung cancer [place] ([place] infarction) (HCC) 10-10 taken to [facility] heart stopped Obstructive chronic bronchitis with [...] for muscle spasm. PULSE OXIMETER [facility] Use as directed to check oxygen [...] Accessories misc Mask and supplies as needed Cigmgqffruioq-HH-dymeQHKkuog (MUCINEX FAST-MAX CONGEST-COUGH) 2.5-5-100 mg/5 mL liqd Take 10 mL by mouth three times daily as needed. OXYGEN, HOME THERAPY, 2.5 L/min by Nasal Cannula route continuous. Use as directred Disposable Gloves (DISPOSABLE LATEX-FREE GLOVES) [facility] Box once every month. ICD 10: [...] Past Histories independently gathered by the clinical sales support rep and the remaining scribed note accurately describes my personal service to the patient. Yoseph Fall MD The documentation for this note was completed by Naima Haines Ma acting as scribe for Yoseph Fall MD. October 17, 2021 2:02 PM. Naima Haines Ma documented in this encounterRegency Hospital [facility]06-07-2022 Miscellaneous Notes* Telephone Encounter - Naima Haines [...] Yoseph Fall MD * Telephone Encounter - Richard Mora LPN - 09/30/2021 12:15 PM EDT [...] medication: Not applicable Please advise. Thank you. Richard Mora LPN documented in this encounterRegency Hospital [facility]05-23-2022 Miscellaneous Notes* Telephone Encounter - Yoseph Fall [...] patient. Jennifer Hennessy LPN documented in this encounterRegency Hospital [facility]05-04-2022 Miscellaneous Notes* Telephone Encounter - Nelson Robert APRN.CNP - 08/27/2021 1:02 PM EDT The following approved medication requests have been transmitted electronically. Pending Prescriptions Disp Refills PREDNISONE 20 MG TABLET 10 tablet 0 Sig: Take 2 tablets by mouth once daily. LENY: No Nelson Robert APRN.AUSTIN * Telephone Encounter - Sukhi Marrero RN [...] provider send a new prescription to [facility]. Pharmacy won't fill current prescription. Date [...] you. Sukhi Marrero RN documented in this encounterRegency Hospital [facility]04-25-2022 Miscellaneous Notes* Telephone Encounter - Naima Haines [...] you. Padmini Abbott RN documented in this encounterRegency Hospital [facility]03-07-2017 History of Past illness Narrative* Problem Noted [...] - Not done as it will not ticket dispenser changer (same duration of ABx treatment) Cholelithiasis with [...] 06/24/2016 - Decreased Flatulence - [facility] was normal (report available only) Plan: [...] of this encounter (statuses as of 08/01/2021) [facility] History of Past illness Narrative* Problem Noted [...] - Not done as it will not ticket dispenser changer (same duration of ABx treatment) Cholelithiasis with [...] 06/24/2016 - Decreased Flatulence - [facility] at [facility] was normal (report available only) Plan: [...] of this encounter (statuses as of 08/18/2021) [facility] History of Past illness Narrative* Problem Noted [...] - Not done as it will not ticket dispenser changer (same duration of ABx treatment) Cholelithiasis with [...] 06/24/2016 - Decreased Flatulence - [facility] at [facility] was normal (report available only) Plan: [...] of this encounter (statuses as of 08/27/2021) [facility] History of Past illness Narrative* Problem Noted [...] - Not done as it will not ticket dispenser changer (same duration of ABx treatment) Cholelithiasis with [...] 06/24/2016 - Decreased Flatulence - [facility] at [facility] was normal (report available only) Plan: [...] of this encounter (statuses as of 09/15/2021) [facility] of Past illness Narrative* Problem Noted [...] - Not done as it will not ticket dispenser changer (same duration of ABx treatment) Cholelithiasis with [...] 06/24/2016 - Decreased Flatulence - [facility] at [facility] was normal (report available only) Plan: [...] of this encounter (statuses as of 09/30/2021) [facility] of Past illness Narrative* Problem Noted [...] - Not done as it will not ticket dispenser changer (same duration of ABx treatment) Cholelithiasis with [...] 06/24/2016 - Decreased Flatulence - [facility] at [facility] was normal (report available only) Plan: [...] of this encounter (statuses as of 10/17/2021) [facility] of Past illness Narrative* Problem Noted [...] - Not done as it will not ticket dispenser changer (same duration of ABx treatment) Cholelithiasis with [...] 06/24/2016 - Decreased Flatulence - [facility] at [facility] was normal (report available only) Plan: [...] of this encounter (statuses as of 11/17/2021) [facility] of Past illness Narrative* Problem Noted [...] - Not done as it will not ticket dispenser changer (same duration of ABx treatment) Cholelithiasis with [...] 06/24/2016 - Decreased Flatulence - [facility] at [facility] was normal (report available only) Plan: [...] of this encounter (statuses as of 12/18/2021) [facility] of Past illness Narrative* Problem Noted [...] - Not done as it will not ticket dispenser changer (same duration of ABx treatment) Cholelithiasis with [...] 06/24/2016 - Decreased Flatulence - [facility] at [facility] was normal (report available only) Plan: [...] of this encounter (statuses as of 01/08/2022) [facility] of [facility] Narrative* Problem Noted [...] - Not done as it will not ticket dispenser changer (same duration of ABx treatment) Cholelithiasis with [...] 06/24/2016 - Decreased Flatulence - [facility] at [facility] was normal (report available only) Plan: [...] of this encounter (statuses as of 01/13/2022) [facility] of [facility] Narrative* Problem Noted [...] - Not done as it will not ticket dispenser changer (same duration of ABx treatment) Cholelithiasis with [...] 06/24/2016 - Decreased Flatulence - [facility] at [facility] was normal (report available only) Plan: [...] of this encounter (statuses as of 01/20/2022) [facility] Narrative* Problem Noted [...] - Not done as it will not ticket dispenser changer (same duration of ABx treatment) Cholelithiasis with [...] 06/24/2016 - Decreased Flatulence - [facility] at [facility] was normal (report available only) Plan: [...] of this encounter (statuses as of 02/20/2022) [facility] of [facility] Narrative* Problem Noted [...] - Not done as it will not ticket dispenser changer (same duration of ABx treatment) Cholelithiasis with [...] 06/24/2016 - Decreased Flatulence - [facility] at [facility] was normal (report available only) Plan: [...] of this encounter (statuses as of 02/27/2022) [facility] of [facility] Narrative* Problem Noted [...] - Not done as it will not ticket dispenser changer (same duration of ABx treatment) Cholelithiasis with [...] 06/24/2016 - Decreased Flatulence - [facility] at [facility] was normal (report available only) Plan: [...] of this encounter (statuses as of 04/26/2022) [facility] Narrative* Problem Noted [...] - Not done as it will not ticket dispenser changer (same duration of ABx treatment) Cholelithiasis with [...] 06/24/2016 - Decreased Flatulence - [facility] at [facility] was normal (report available only) Plan: [...] of this encounter (statuses as of 05/02/2022) [facility] Narrative* Problem Noted [...] - Not done as it will not ticket dispenser changer (same duration of ABx treatment) Cholelithiasis with [...] 06/24/2016 - Decreased Flatulence - [facility] at [facility] was normal (report available only) Plan: [...] of this encounter (statuses as of 05/05/2022) [facility] Narrative* Problem Noted [...] - Not done as it will not ticket dispenser changer (same duration of ABx treatment) Cholelithiasis with [...] 06/24/2016 - Decreased Flatulence - [facility] at [facility] was normal (report available only) Plan: [...] of this encounter (statuses as of 05/15/2022) [facility] Narrative* Problem Noted [...] - Not done as it will not ticket dispenser changer (same duration of ABx treatment) Cholelithiasis with [...] 06/24/2016 - Decreased Flatulence - [facility] at [facility] was normal (report available only) Plan: [...] of this encounter (statuses as of 06/08/2022) [facility] Narrative* Problem Noted [...] - Not done as it will not ticket dispenser changer (same duration of ABx treatment) Cholelithiasis with [...] 06/24/2016 - Decreased Flatulence - [facility] at [facility] was normal (report available only) Plan: [...] of this encounter (statuses as of 06/29/2022) [facility] Narrative* Problem Noted [...] - Not done as it will not ticket dispenser changer (same duration of ABx treatment) Cholelithiasis with [...] 06/24/2016 - Decreased Flatulence - [facility] at [facility] was normal (report available only) Plan: [...] of this encounter (statuses as of 07/03/2022) [facility] Narrative* Problem Noted [...] - Not done as it will not ticket dispenser changer (same duration of ABx treatment) Cholelithiasis with [...] 06/24/2016 - Decreased Flatulence - [facility] at [facility] was normal (report available only) Plan: [...] of this encounter (statuses as of 09/01/2022) [facility] Narrative* Problem Noted [...] - Not done as it will not ticket dispenser changer (same duration of ABx treatment) Cholelithiasis with [...] 06/24/2016 - Decreased Flatulence - [facility] at [facility] was normal (report available only) Plan: [...] of this encounter (statuses as of 11/06/2022) [facility] Narrative* Problem Noted [...] - Not done as it will not ticket dispenser changer (same duration of ABx treatment) Cholelithiasis with [...] 06/24/2016 - Decreased Flatulence - [facility] at [facility] was normal (report available only) Plan: [...] of this encounter (statuses as of 11/06/2022) [facility] Narrative* Problem Noted [...] - Not done as it will not ticket dispenser changer (same duration of ABx treatment) Cholelithiasis with [...] 06/24/2016 - Decreased Flatulence - [facility] at [facility] was normal (report available only) Plan: [...] of this encounter (statuses as of 12/29/2022) [facility] Narrative* Problem Noted [...] - Not done as it will not ticket dispenser changer (same duration of ABx treatment) Cholelithiasis with [...] 06/24/2016 - Decreased Flatulence - [facility] at [facility] was normal (report available only) Plan: [...] of this encounter (statuses as of 01/15/2023) [facility] Narrative* Problem Noted [...] - Not done as it will not ticket dispenser changer (same duration of ABx treatment) Cholelithiasis with [...] 06/24/2016 - Decreased Flatulence - [facility] at [facility] was normal (report available only) Plan: [...] of this encounter (statuses as of 01/30/2023) [facility] Narrative* Problem Noted [...] - Not done as it will not ticket dispenser changer (same duration of ABx treatment) Cholelithiasis with [...] 06/24/2016 - Decreased Flatulence - [facility] at [facility] was normal (report available only) Plan: [...] of this encounter (statuses as of 02/19/2023) [facility] Narrative* Problem Noted [...] - Not done as it will not ticket dispenser changer (same duration of ABx treatment) Cholelithiasis with [...] 06/24/2016 - Decreased Flatulence - [facility] at [facility] was normal (report available only) Plan: [...] of this encounter (statuses as of 03/17/2023) [facility] Narrative* Problem Noted [...] - Not done as it will not ticket dispenser changer (same duration of ABx treatment) Cholelithiasis with [...] 06/24/2016 - Decreased Flatulence - [facility] at [facility] was normal (report available only) Plan: [...] of this encounter (statuses as of 03/31/2023) [facility] Narrative* Problem Noted [...] - Not done as it will not ticket dispenser changer (same duration of ABx treatment) Cholelithiasis with [...] 06/24/2016 - Decreased Flatulence - [facility] at [facility] was normal (report available only) Plan: [...] of this encounter (statuses as of 06/11/2023) [facility] Narrative* Problem Noted [...] - Not done as it will not ticket dispenser changer (same duration of ABx treatment) Cholelithiasis with [...] 06/24/2016 - Decreased Flatulence - [facility] at [facility] was normal (report available only) Plan: [...] of this encounter (statuses as of 06/15/2023) [facility] Narrative* Problem Noted [...] - Not done as it will not ticket dispenser changer (same duration of ABx treatment) Cholelithiasis with [...] 06/24/2016 - Decreased Flatulence - [facility] at [facility] was normal (report available only) Plan: [...] of this encounter (statuses as of 06/16/2023) [facility] Narrative* Problem Noted [...] - Not done as it will not ticket dispenser changer (same duration of ABx treatment) Cholelithiasis with [...] 06/24/2016 - Decreased Flatulence - [facility] at [facility] was normal (report available only) Plan: [...] of this encounter (statuses as of 06/17/2023) [facility] Narrative* Problem Noted [...] - Not done as it will not ticket dispenser changer (same duration of ABx treatment) Cholelithiasis with [...] 06/24/2016 - Decreased Flatulence - [facility] at [facility] was normal (report available only) Plan: [...] of this encounter (statuses as of 06/21/2023) [facility] Narrative* Problem Noted [...] - Not done as it will not ticket dispenser changer (same duration of ABx treatment) Cholelithiasis with [...] 06/24/2016 - Decreased Flatulence - K[facility] at [facility] was normal (report available only) Plan: [...] of this encounter (statuses as of 06/28/2023) [facility] Narrative* Problem Noted [...] - Not done as it will not ticket dispenser changer (same duration of ABx treatment) Cholelithiasis with [...] 06/24/2016 - Decreased Flatulence - K[facility] at [facility] was normal (report available only) Plan: [...] of this encounter (statuses as of 07/20/2023) [facility] Narrative* Problem Noted [...] - Not done as it will not ticket dispenser changer (same duration of ABx treatment) Cholelithiasis with [...] 06/24/2016 - Decreased Flatulence - K[facility] at [facility] was normal (report available only) Plan: [...] of this encounter (statuses as of 07/26/2023) [facility] of Past [facility] Narrative* Problem Noted [...] - Not done as it will not ticket dispenser changer (same duration of ABx treatment) Cholelithiasis with [...] 06/24/2016 - Decreased Flatulence - K[facility] at [facility] was normal (report available only) Plan: [...] of this encounter (statuses as of 07/27/2023) [facility] of [facility] Narrative* Problem Noted [...] - Not done as it will not ticket dispenser changer (same duration of ABx treatment) Cholelithiasis with acute ch olangitis with biliary obstruction 06/21/2016 06/27/2016 Overview: - Abdominal pain, Burnett positive - Cholestasis: AP: 255T bili 1.4 D bili 0.9 - A/P CT Scan showed cholelithiasis, gallbladder wall thickening, intrahepatic and extrahepatic bile duct dilation (choldocholithiasis + cholecystitis) - No fever, normal WBC (acute cholangitis less likely) - ERCP 2/27: purulent cholangitis + Choledocholithiasis - removal by [...] 06/24/2016 - Decreased Flatulence - [facility] at [facility] was normal (report available only) Plan: [...] of this encounter (statuses as of 08/06/2023) [facility] Riley Jeff [facility] Note Date/Time September 29, 2024 4:33a [facility] Medical Records Department [address] [place] [address] Emergency Department Summary 09/29/24 MR#: [id number] Acct: [id number] Name: DENIA GONZALEZ Rep #:[id number] : [id number] 69 From: Riley Jeff DO PCP: Dr. Yoseph Fall MD Status:RE G ER Location: ED HPI History of Present Illness Chief Complaint: Shortness of Breath Informant: patient and EMS Narrative Narrative: Patient is a 69-year-old female with past medical history of hypertension and COPD who wears 2 to 3 L nasal cannula oxygen 16/11. She states that she has a home nebulizer machine and takes prednisone every other day. She states over the past 5 to 7 days she has been having increased cough and shortness of breath. Secondary to this she increased her prednisone to 40 mg and has been taking a reported taper. Despite the added prednisone and her continued use of breathing treatments she states cough and shortness of breath has persisted. Secondary to that she presents for evaluation [facility] Medical History RLS (restless legs syndrome) History of ETOH abuse Chronic hypoxic respiratory failure, on home oxygen therapy COPD (chronic obstructive pulmonary disease) Anxiety Depression Smoker Asthma Hypertension Migraines Medical History no medical history Home Medications ?Medication ?Instructions ?Recorded ?Last Taken ?Type albuterol sulfate 90 mcg/actuation 1 - 2 puff inhalati on Q4H PRN PRN 04/18/13 09/23/14 History aerosol inhaler (Ventolin HFA) Bronchodialation cyclobenzaprine 10 mg tablet 10 mg PO Q12H pain 09/23/14 History 10 MG fluticasone propionate 50 1 spray intranasal DAILY porfirio al 04/18/13 09/23/14 History mcg/actuation nasal congestion spray,suspension montelukast 10 mg tablet 10 mg PO DAILY allergies 09/23/14 History 10 MG omeprazole 20 mg capsule,delayed 20 mg PO DAILY heart burn 04/18/13 09/23/14 History release 20 MG tiotropium bromide 18 mcg capsule 1 puff inhalation DA BINU wheezing 04/18/13 09/23/14 History with inhalation device (Spiriva with HandiHaler) verapamil 240 mg tablet,extended 360 mg PO DAILY heart 04/18/13 09/23/14 History release 360 MG Oxygen, Home [Home Oxygen] 2.5 lpm PRN PRN Dyspnea 09/23/14 History sertraline 100 mg tablet 100 mg PO DAILY insomina 09/23/14 History fluticasone 500 mcg-salmeterol 50 1 puff inhalation BI D shortness of 10/26/13 09/23/14 Rx mcg/dose blistr powdr for breath ##1 inhalation (Advair Diskus) Ropinirole Hcl 0.25 mg PO QHS restless legs 09/23/14 Unknown History prednisone 10 mg tablet 15 mg PO PRN PRN FLARE UPS 1 06/04/14 Unknown History ipratropium 0.5 mg-albuterol 3 mg 3 ml inhalation Q4HW A.RT wheezing 05/13/16 Unknown Rx (2.5 mg base)/3 mL nebulization ##30 soln lorazepam 0.5 mg tablet 0.5 mg PO QHS anxiety #7 tab s 05/05/20 Unknown Rx nicotine (polacrilex) 2 mg gum 2 mg buccal Q2H #20 ea 07/22/23 Unknown Rx (Nicorette) azithromycin 250 mg tablet See Rx Instructions PO .COM PLEX #6 10/18/23 Unknown Rx (Zithromax) tabs cholecalciferol (vitamin D3) 50 50 mcg PO DAILY Unknown History mcg (2,000 unit) capsule (Vitamin [...] / Time No Known Allergies Allergy Verified 09/29/24 02:19 Family History Mother Hypertension Throat cancer Father Hypertension Stomach cancer Family History no significant family his Surgical History H/O exploratory laparotomy History of lung surgery History of cholecystectomy Social History household members: none Smoking Status: Former smoker alcohol intake: former substance use type: does not use ROS ROS ED Constitutional Constitutional ED: Denies chills or fever(s) ENT ENT ED: Denies rhinorrhea or sore throat Cardiovascular Cardiovascular: Denies chest pain, palpitations or racing heartbeat Respiratory/Chest Respiratory/Chest: Reports cough and dyspnea Gastrointestinal Gastrointestinal: Denies abdominal pain, diarrhea, nausea or vomiting Genitourinary Genitourinary ED: Denies dysuria Musculoskeletal Musculoskeletal: Denies myalgias Integumentary Denies rash Neurologic Neurologic: Reports weakness; Denies headache(s) Hematologic/Lymphatic Hematologic/Lymphatic: Denies easy bleeding or easy bruising Allergic/Immunologic Allergic/Immunologic ED: Denies mouth swelling or tongue swelling EXAM Physical Exam Const Vital Signs: 09/29/24 02:19 09/29/24 02:23 09/29/24 02:25 Temperature 99.1 F 99.1 F Temperature Source Oral Oral Pulse Rate 140 H 140 H Respiratory Rate 24 H 25 H Respiratory Effort Short of Breath Respiratory Pattern Tachypnea Blood Pressure 190/92 H 190/92 H Blood Pressure Mean 124 124 Pulse Ox 94 96 Oxygen Delivery Method Nasal Cannula Nasal Cannula Nasal Cannula Oxygen Flow Rate (L/min) 3 3 3 09/29/24 03:00 09/29/24 03:23 Temperature 98.8 F Temperature Source Oral Pulse Rate 119 H 116 H Respiratory Rate 20 H 24 H Respiratory Effort Respiratory Pattern Normal Blood Pressure 154/89 H Blood Pressure Mean 110 Pulse Ox 97 Oxygen Delivery Method Nasal Cannula Oxygen Flow Rate (L/min) 3 Positive well nourished, well developed and unkempt General Appearance ED: unkempt and well developed; Negative for pallor HEENT Reports dry mucous membranes HEENT Narrative: Mucous membranes are dry and tacky No tongue or lip swelling no oral lesions no airway edema or compromise Mouth ED: Yes dry mucous membranes Mouth: dry mucous membranes Eyes PERRL and EOMs intact bilaterally General Eye ED: Negative for scleral icterus Neck supple and no JVD Neck Narrative: No nuchal rigidity or meningeal signs Chest Wall palpation of chest normal Resp Resp Narrative: Patient is tachypneic with accessory muscle use. Breath sounds are severely diminished throughout and there is diffuse inspiratory and expiratory wheezing noted Cardio regular rhythm Rate: tachycardic and other Other Details: Tachycardic rate with regular rhythm Radial and carotid pulses are equal and symmetric GI normal to inspection, nondistended, normoactive bowel sounds, non-tender, non-distended and no masses Auscultation: normoactive bowel sounds Palpation: soft Extremity normal to inspection Extremity Narrative: No asymmetric edema no pitting edema negative Homans' sign bilaterally Neuro oriented x3, CN's II-XII intact bilaterally and no sensory deficits noted Sensorium / Orientation: alert Motor Exam: strength 5/5 throughout Psych mental status grossly normal Appearance: unkempt Skin no rashes or lesions noted General Skin Exam: Negative for jaundice or pallor MDM MDM MDM Narrative Medical decision making narrative: Patient arrived to the ER tachycardic and tachypneic but satting in the mid 90s on her normal 2 to 3 L nasal cannula oxygen. The patient denies any chest pain and reports that her increased shortness of breath is associated with cough but states has been no fevers chills or known sick contact. As she has been taking steroids and using her breathing treatments without symptom improvement there isconcern for underlying pneumonia pneumothorax or CHF exacerbation. Patient could also have increased shortness of breath secondary to acute blood loss anemia. Therefore basic labs viral swab and chest x-ray were obtained. White count is normal and she is afebrile going against an infectious process. Chest x-ray revealed no sign of pneumonia pneumothorax or pleural effusion. COVID influenza and RSV testing were negative. H&H is stable going against acute blood loss anemia. The patient was given IV steroids as well as albuterol and DuoNeb nebulizers. She did have mild to moderate improvement of her symptoms but still states that she feels short of breath. As she is failing outpatient therapy at home the decision was made to contact medicine to discuss admission. After discussion with the hospitalist as the patient is failing outpatient therapy they do agree to bring her in for continued observation and treatment. History & Record Review Discussion w/independent historian: EMS personnel and Patient Lab Data Attestation: I reviewed the patient's lab results. Labs: Laboratory Results - last 24 hr 09/29/24 02:30 WBC 10.6 RBC 4.88 Hgb 13.6 Hct 41.7 MCV 85.5 MCH 27.9 MCHC 32.6 RDW Std Deviation 40.6 RDW Coeff of Augustin 13.1 Plt Count 198 MPV 9.7 Immature Gran % (Auto) 0.500 Neut % (Auto) 78.5 H Lymph % (Auto) 13.2 L [place] % (Auto) 6.9 Eos % (Auto) 0.7 Baso % (Auto) 0.2 Absolute Neuts (auto) 8.4 H Absolute Lymphs (auto) 1.40 Nucleated RBC % 0 Sodium 136 Potassium 4.4 Chloride 93 L Carbon Dioxide 33.1 H Anion Gap 10 BUN 18 Creatinine 0.70 Estim Creat Clear Calc 64.35 Est GFR (MDRD) Non-Af 94 BUN/Creatinine Ratio 25.5 H Glucose 129 H Calcium 8.9 Magnesium 2.0 NT pro BNP II 518 Radiography Diagnostic Testing: Clinical Impression(s) from Imaging Studies Chest X-Ray 09/29/24 02:47 IMPRESSION: Stable appearance of the chest. Emphysematous changes without evidence of an acute cardiopulmonary abnormality. Reading Location: [facility] Chest x-ray as interpreted by the emergency medicine physician reveals no acute infiltrate pneumothorax or pleural effusion Management Discussion w/another healthcare provider: Hospitalist Discharge Plan Dx/Rx/DC Orders Clinical Impression: COPD with acute exacerbation, Benign essential hypertension, Anxiety and depression Disposition Disposition: [facility] What to do if you have Problems For any increased pain, shortness of breath, bleeding, nausea or vomiting, chestpain, or any unexpected problems, contact your Primary Care Provider. Call [facility] ([phone]) or report to the closest Emergency Room. Call 911 if necessary. 09/29/24 0433 <Electronically signed by Riley Jeff DO> Cosigner Signature (if applicable): CC: Dr. Yoseph Fall MD ~ Signed [facility] Work Phone: Discharge summary Author Alessandro Palma [facility] Note Date/Time October 09, 2024 3:58 pm [facility] Medical Records Department [address] [place] [address] Instructions for Home/Discharge Instructions 10/09/24 1542 MR#: [id number] Acct: [id number] Name: DENIA GONZAELZ Rep #:[id number] : 1955 69 From: Alessandro Liu PCP: Dr. Yoseph Fall MD Status:AD M IN Discharge Instructions DC O2, CPAP, BIPAP needs Home O2 Discharge instructions: Yes Type of respiratory needs?: Oxygen Oxygen frequency: Continuous Continuous oxygen liters per minute: 2 Follow Up Care Test Results: Test results from this visit will be discussed in further detail at your follow- up appointment, if applicable. Discharge Plan Admission Admit Date/Time: 09/29/24 11:36 Primary Reason for Your Visit: Acute hypoxic hypercarbic respiratory failure, COPD exacerbation, pneumonia Attending Provider: Alessandro Palma Primary Care Provider: Yoseph Fall Consulting Providers: Dionne Porter; Jan Bolanos; Junito Madrid; Lynne Schafer Discharge Orders/Prescriptions Prescriptions: New nicotine 14 mg/24 hr Patch 24 Hour 14 mg transdermal DAILY Qty: 28 0RF verapamil 180 mg Capsule,Ext Rel. 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 omeprazole 20 MG capsule 20 mg PO DAILY Patient Comments: ACID REFLUX MEDICATION montelukast 10 MG tablet 10 mg [...] sertraline 100 MG tablet 100 mg PO BID Patient Comments: mood enhancement Oxygen, Home [Home Oxygen] 2.5 lpm NASAL PRN PRN (Reason: Dyspnea) Patient Comments: oxygen fluticasone propion-salmeterol [Advair Diskus] 1 PUFF inhaler 1 puff inhalation BID Qty: 1 0RF Patient Comments: nasal congestion Ropinirole Hcl 0.25 MG tablet 0.25 mg PO QHS Patient Comments: restless legs prednisone 10 MG tablet 15 mg PO QODAY PRN (Reason: FLARE UPS) Patient Comments: steroid for inflammation ipratropium-albuterol 3 ML solution for nebulization 3 ml inhalation Q4HWA.RT Qty: 30 0RF lorazepam 0.5 MG tablet 0.5 mg PO QHS Qty: 7 0RF nicotine (polacrilex) [Nicorette] 2 mg gum 2 mg buccal Q2H Qty: 20 0RF cholecalciferol (vitamin D3) [Vitamin D3] 50 mcg (2,000 unit) capsule 50 mcg PO DAILY ipratropium-albuterol 0.5 mg-3 mg(2.5 mg base)/3 mL solution for nebulization 3 ml inhalation Q6H PRN (Reason: shortness of breath or wheezing) Qty: 180 0RF buspirone 10 mg tablet 10 mg PO BID hydrocodone-acetaminophen 5-325 mg tablet 1 tab PO BID PRN PRN (Reason: pain) prednisone 20 mg tablet 40 mg PO DAILY 5 Days Qty: 10 0RF Discontinued verapamil 240 MG tablet 360 mg PO DAILY Patient Comments: HEART MEDICATION Referrals / Follow Up: Yoseph Fall MD [Primary Care Provider] - Junito Madrid MD [Med Staff - Active Staff] - Within 1 Month (Evaluation for moderate to severe aortic stenosis) Lindsay Whitehead PA [Med Staff - Adv Practice Prof] - Within 1 Week Andriy Guzmán DO [Med Staff - Active Staff] - Within 1 Month Disposition Disposition (needs filled in before D/C Order can be placed): Home Health Service 10/09/241557<Electronically signed by Alessandro Palma MD>Alessandro Palma MD CC: Dr. Dionne Porter MD; Dr. Yoseph Fall MD; Dr. Junito Madrid MD; Dr. Lynne Schafer MD; Dr. Jan Bolanos MD ~ Signed [facility] Work Phone: Discharge summary Author Alessandro Palma [facility] Note Date/Time October 09, 2024 4:06 pm [facility] Medical Records Department [address] [place] [address] Discharge Summary 10/09/248 MR#: [id number] Acct: [id number] Name: MONICODENIA Gisell Rep #:[id number] : 1955 69 From: Alessandro Liu PCP: Dr. Yoseph Fall MD Status:AD M IN Location: [facility] [id number] Providers Date of Admission: 09/29/24 Date of Discharge: 10/09/24 Primary Care Physician: Dr. Yoseph Fall MD Consultations 10/02/24 09:21 Consult: Cardiology Routine Consulting Provider: Junito Madrid Reason for Consult: New afib RVR EMERGENT Consult: No MD Notified: Yes Date Notified: 10/02/24 Time Notified: Method of Notification: Text Reason For Visit: COPD EXACERBATION Diagnosis Discharge Diagnosis (1) Aortic valve stenosis: Status: Acute Code(s): I35.0 - Nonrheumatic aortic (valve) stenosis Qualifiers: Cardiac valve disease etiology: nonrheumatic Qualified Code(s): I35.0 - Nonrheumatic aortic (valve) stenosis (2) Afib: Status: Acute Code(s): I48.91 - Unspecified atrial fibrillation Plan This is a 69-year-old female admitted for acute hypoxic and hypercarbic respiratory failure. She was started on BiPAP. Sputum cultures tested positivefor Pseudomonas and on Levaquin. Patient also had reactive RPR. #Acute hypoxic and hypercapnic respiratory failure due to COPD exacerbation and pneumonia * sputum cultures growing Pseudomonas * has a history of non-small cell lung cancer. Had right lung surgery * Patient had 2 dosages of Levaquin 1 oral and then 1 IV. Discharged on 6 more doses of Levaquin 500 milligram daily. * breathing treatment with bronchodilators. Titrate oxygen to maintain sats >90% * Sputum cultures grew stenotrophomonas and Pseudomonas both sensitive to Levaquin * Currently on 2 L of oxygen. Home oxygen qualification test ordered. Follow- up in pulmonary clinic. Discharged on burst therapy of prednisone 40 mg daily for 5 days. Follow-up pulmonary clinic. # A-fib with RVR * Patient went back into tachycardia today with heart rate going as high as the 180s. EKG showed A-fib with RVR * 2D echo done showed severe concentric left ventricular hypertrophy with EF of 70% and stage I diastolic dysfunction as well as severely calcified aortic valve with severe aortic valve stenosis and mean peak gradient of 50 mmHg as well as trivial aortic valve regurgitation. * Cardiology on board. Management as per cardiology. * per cardiology, she will need to be worked up for TAVR on outpatient basis once she follows up with cardiology on discharge. On verapamil?SR 180 mg twice daily. * Discussed with the car restorer Dr. Hopkins today. Discharge on verapamil and Carvedilol 6.25 mg twice daily. * On therapeutic Lovenox. She converted to normal sinus rhythm. Discharged on dronedarone and Eliquis 5 mg twice daily. Follow-up in cardiology office with Dr. Leroy in 1 week. Needs referral to TAVR. * #Benign essential hypertension * on verapamil * #Anxiety and depression: On Ativan nightly and buspirone #Restless leg syndrome: On pramipexole #GERD: on PPI DVT prophylaxis: On therapeutic Lovenox. Change to PO eliquis. Discharge medication reconciliation done. Discharge follow-up instructions completed. Discharge process discussed with the patient and all questions wereanswered to patient's satisfaction. Follow with PCP in 1 to 2 weeks Total time spent, exact 35 minutes on discharge meds reconciliation, examination, coordination of care with nurses and ancillary staff, review of imaging and blood test and discussion with the patient on follow-up instructions. Medications at Discharge Home Medications albuterol sulfate [...] HandiHaler) 1 puff inhalation DAILY wheezing 04/18/13 Oxygen, Home [Home Oxygen] 2.5 lpm PRN PRN Dyspnea 10/22/13 sertraline 100 mg tablet 100 mg PO BID mood 10/22/13 fluticasone 500 mcg-salmeterol 50 mcg/dose blistr powdr for inhalation (Advair Diskus) 1 puff inhalation BID shortness of breath ##1 10/26/13 Ropinirole Hcl 0.25 mg PO QHS restless legs 09/23/14 prednisone 10 mg tablet 15 mg PO QODAY PRN FLARE UPS 04/03/15 ipratropium 0.5 mg-albuterol 3 mg (2.5 mg base)/3 mL nebulization soln 3 ml inhalation Q4HWA.RT wheezing ##30 05/13/16 lorazepam 0.5 mg tablet 0.5 mg PO QHS anxiety #7 tabs 05/05/20 nicotine (polacrilex) 2 mg gum (Nicorette) 2 mg buccal Q2H to stop smoking #20 ea 07/22/23 cholecalciferol (vitamin D3) 50 mcg (2,000 unit) capsule (Vitamin D3) 50 mcg PO DAILY vitamin 10/18/23 ipratropium 0.5 mg-albuterol 3 mg (2.5 mg base)/3 mL nebulization soln 3 ml inhalation Q6H PRN shortness of breath or wheezing #180 mL 10/18/23 buspirone 10 mg tablet 10 mg PO BID anxiety 10/02/24 hydrocodone-acetaminophen 5-325mg 5mg-325mg 1 tab PO BID PRN PRN pain 10/03/24 apixaban 5 mg tablet (Eliquis) 5 mg PO BID 1 month #60 tabs 10/09/24 carvedilol 6.25 mg tablet 6.25 mg PO BID 1 month #60 tabs 10/09/24 dronedarone 400 mg tablet (Multaq) 400 mg PO BID 30 days #60 tabs 10/09/24 levofloxacin 500 mg tablet 500 mg PO DAILY 6 days #6 tabs 10/09/24 nicotine 14 mg/24 hr daily transdermal patch 14 mg transdermal DAILY #28 ea 10/09/24 prednisone 20 mg tablet 40 mg (2 x 20 mg) PO DAILY 5 days #10 tabs 10/09/24 verapamil 180 mg 24 hr capsule,extended release 180 mg PO BID 30 days #60 caps 10/09/24 Physical Exam Narrative Seen and examined Patient heart rate is controlled in the low 100s to 90s. Regular mild sinus tachycardia. Shortness of breath is also improved. Currently on 2 L of oxygen. History of lung cancer diagnosed in 2003 and had right lung surgery. Physical exam General: Alert, Oriented x3, Cooperative. BMI 26.1. HEENT: Atraumatic, PERRLA, EOMI, Normocephalic. Oral: No Gingival or Mucosal Lesions/ Ulcerations Neck: Supple, No JVD, Negative Carotid Bruits Chest wall/Lungs: Air entry diminished in both lungs. Cardiovascular: Regular rate and rhythm, Normal S1,S2, systolic murmur with radiation to carotids. Abdomen: Bowel Sounds Present, Soft, Non Tender, Non-Distended : No dysuria. No renal angle tenderness. No suprapubic tenderness. Extremities: No edema, Capillary Refill Less than 3 Seconds Skin: No rashes, No breakdown Musculoskeletal: No Tenderness to Palpation of Joints or Extremities Neurological: Cranial nerves II-XII grossly intact, DTR 2+/4. No acute focal neurological deficit. Psych/Mental Status: Flat affect. Weight / BMI Weight Weight: 152 lb 5.431 oz Body Mass Index (BMI) 26.1 ABG / Lab / Microbiology Data 10/09/24 05:30 10/09/24 05:30 Laboratory: Laboratory Results - last 24 hr 10/09/24 05:30: WBC 9.7, RBC 4.84, Hgb 13.5, Hct 41.6, MCV 86.0, MCH 27.9, MCHC 32.5, RDW Std Deviation 41.1, RDW Coeff of Augustin 13.1, Plt Count 181, MPV 10.0, Immature Gran % (Auto) 0.800, Neut % (Auto) 86.9 H, Lymph % (Auto) 6.9 L, [place] %(Auto) 5.3, Eos % (Auto) 0.0, Baso % (Auto) 0.1, Absolute Neuts (auto) 8.4 H, Absolute Lymphs (auto) 0.67 L, Nucleated RBC % 0, Sodium 139, Potassium 4.9, Chloride 93 L, Carbon Dioxide 40.4 H, Anion Gap 5, BUN 17, Creatinine 0.44 L, Estim Creat Clear Calc 63.35, Est GFR (MDRD) Non-Af 105, BUN/Creatinine Ratio 38.0 H, Glucose 113 H, Calcium 8.4 Microbiology: Microbiology 09/29/24 09:15 Sputum, Expectorated/Coughed Gram Stain - Final 09/29/24 09:15 Sputum, Expectorated/Coughed Respiratory Culture - Final Stenotrophomonas maltophilia Pseudomonas aeruginosa 09/29/24 06:05 Mucosa - Nasopharyngeal Respiratory Panel (PCR) - Final 09/29/24 02:30 Mucosa - Nose SARS-CoV-2, Influenza & RSV (PCR) - Final D/C Instructions DC O2, CPAP, BIPAP Needs Home O2 Discharge instructions: Yes Type of respiratory needs?: Oxygen Oxygen frequency: Continuous Continuous oxygen liters per minute: 2 DC home with Oxygen: Yes Home O2 MD Review: I have reviewed the oxygen testing, and the patient qualifies for home oxygen equipment and portability. The patient is mobile in the home and the community. Meaningful Use Info Meaningful Use Meaningful Use Diagnoses (Choose all that apply): None applicable Ischemic Stroke Statin Dosing Therapy Reference: STATIN DOSE THERAPY REFERENCE: * Patients > 75 years receive moderate or high dose statin therapy. * Patients 75 years or YOUNGER should receive HIGH intensity statin dose unless contraindicated. You will be required to document reason for non-treatment if statin daily dose does not meet guidelines. HIGH DOSE STATIN THERAPY DAILY Atorvastatin > than or = to 40 mg Rosuvastatin > than or = to 20 mg Amlodipine + Atorvastatin > than or = to 2.5/40 mg Ezetimibe + Simvastatin 10/80 mg Simvastatin 80mg Discharge Plan Admission Admit Date/Time: 09/29/24 11:36 Primary Reason for Your Visit: Acute hypoxic hypercarbic respiratory failure, COPD exacerbation, pneumonia Attending Provider: Alessandro Palma Primary Care Provider: Yoseph Fall Consulting Providers: Dionne Porter; Jan Bolanos; Junito Madrid; Lynne Schafer Discharge Orders/Prescriptions Prescriptions: New nicotine 14 mg/24 hr Patch 24 Hour 14 mg transdermal DAILY Qty: 28 0RF verapamil 180 mg Capsule,Ext Rel. 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 omeprazole 20 MG capsule 20 mg PO DAILY Patient Comments: ACID REFLUX MEDICATION montelukast 10 MG tablet 10 mg [...] sertraline 100 MG tablet 100 mg PO BID Patient Comments: mood enhancement Oxygen, Home [Home Oxygen] 2.5 lpm NASAL PRN PRN (Reason: Dyspnea) Patient Comments: oxygen fluticasone propion-salmeterol [Advair Diskus] 1 PUFF inhaler 1 puff inhalation BID Qty: 1 0RF Patient Comments: nasal congestion Ropinirole Hcl 0.25 MG tablet 0.25 mg PO QHS Patient Comments: restless legs prednisone 10 MG tablet 15 mg PO QODAY PRN (Reason: FLARE UPS) Patient Comments: steroid for inflammation ipratropium-albuterol 3 ML solution for nebulization 3 ml inhalation Q4HWA.RT Qty: 30 0RF lorazepam 0.5 MG tablet 0.5 mg PO QHS Qty: 7 0RF nicotine (polacrilex) [Nicorette] 2 mg gum 2 mg buccal Q2H Qty: 20 0RF cholecalciferol (vitamin D3) [Vitamin D3] 50 mcg (2,000 unit) capsule 50 mcg PO DAILY ipratropium-albuterol 0.5 mg-3 mg(2.5 mg base)/3 mL solution for nebulization 3 ml inhalation Q6H PRN (Reason: shortness of breath or wheezing) Qty: 180 0RF buspirone 10 mg tablet 10 mg PO BID hydrocodone-acetaminophen 5-325 mg tablet 1 tab PO BID PRN PRN (Reason: pain) prednisone 20 mg tablet 40 mg PO DAILY 5 Days Qty: 10 0RF Discontinued verapamil 240 MG tablet 360 mg PO DAILY Patient Comments: HEART MEDICATION Referrals / Follow Up: Andriy Guzmán DO [Med Staff - Active Staff] - Within 1 Month Yoseph Fall MD [Primary Care Provider] - Junito Madrid MD [Med Staff - Active Staff] - Within 1 Month (Evaluation for moderate to severe aortic stenosis) Lindsay Whitehead PA [Med Staff - Adv Practice Prof] - Within 1 Week Disposition Disposition (needs filled in before D/C Order can be placed): Home Health Service Charges/Coding Visit Charges Inpatient E&M: 86977 Disch Hosp >30min 10/09/24 1606 <Electronically signed by Alessandro Palma MD> Cosigner Signature (if applicable): CC: Dr. Yoseph Fall MD; Dr. Alessandro Palma MD~ Signed [facility] Work Phone: Evaluation note* Diagnosis Essential hypertension, benign- Primary Elevated glucose Other abnormal glucose [facility] Diagnosis Chronic low back pain with sciatica, sciatica laterality unspecified, unspecified back pain laterality [facility] Diagnosis Chronic obstructive pulmonary disease, unspecified COPD type (HCC) [facility] Diagnosis Chronic obstructive pulmonary disease, unspecified COPD type (HCC)- Primary Chronic low back pain with sciatica, sciatica laterality unspecified, unspecified back pain laterality Essential hypertension, benign Uncomplicated asthma, unspecified asthma severity, unspecified whether persistent Generalized anxiety disorder [facility] Diagnosis Chronic low back pain with sciatica, sciatica laterality unspecified, unspecified back pain laterality [facility] Diagnosis Chronic obstructive pulmonary disease, unspecified COPD type (HCC)- Primary [facility] Diagnosis Chronic low back pain with sciatica, sciatica laterality unspecified, unspecified back pain laterality [facility] Diagnosis Chronic obstructive pulmonary disease, unspecified COPD type (HCC) [facility] Diagnosis Stage 3 severe COPD by GOLD classification (HCC)- Primary Chronic respiratory failure with hypoxia (HCC) Chronic respiratory failure [facility] Diagnosis Stage 3 severe COPD by GOLD classification (HCC)- Primary Chronic low back pain with sciatica, sciatica laterality unspecified, unspecified back pain laterality Chronic respiratory failure with hypoxia (HCC) Chronic respiratory failure Essential hypertension, benign Generalized anxiety disorder Tobacco use disorder [facility]* Diagnosis Chronic obstructive pulmonary disease, unspecified COPD type (HCC) Uncomplicated asthma, unspecified asthma severity, unspecified whether persistent documented in this encounter [facility] note* Diagnosis Esophageal reflux documented in this encounter [facility] note* Diagnosis Generalized osteoarthrosis, involving multiple sites documented in this encounter [facility] note* Diagnosis Generalized osteoarthrosis, involving multiple sites documented in this encounter [facility] note* Diagnosis Screening for colon cancer- Primary Special screening for malignant neoplasms, colon documented in this encounter [facility] note* Diagnosis Chronic low back pain with sciatica, sciatica laterality unspecified, unspecified back pain laterality- Primary Generalized osteoarthrosis, involving multiple sites Generalized anxiety disorder Depression, unspecified depression type Essential hypertension, benign Elevated glucose Other abnormal glucose Stage 3 severe COPD by GOLD classification ([facility]) Gastroesophageal reflux disease, unspecified whether esophagitis present Chronic obstructive pulmonary disease, unspecified COPD type (HCC) Uncomplicated asthma, unspecified asthma severity, unspecified whether persistent Tobacco use disorder Need for influenza vaccination Need for prophylactic vaccination and inoculation against influenza Encounter for medication monitoring Encounter for therapeutic drug monitoring documented in this encounter [facility] note* Diagnosis Thrush, oral Candidiasis of mouth documented in this encounter [facility] note* Diagnosis Encounter for screening mammogram for breast cancer documented in this encounter [facility] note* Diagnosis Onset Date Resolution Status COPD (chronic obstructive pulmonary disease) acute Hypoxia acute Respiratory insufficiency ac tyra Viral URI with cough acute COPD with acute exacerbation [facility] Work Phone: Evaluation note* Diagnosis Obstructive chronic bronchitis with exacerbation (HCC)- Primary Obstructive chronic bronchitis with exacerbation Stage 3 severe COPD by GOLD classification (HCC) Cigarette smoker Tobacco use disorder Chronic respiratory failure with hypoxia (HCC) Chronic respiratory failure documented in this encounter [facility] note* Diagnosis Stage 3 severe COPD by GOLD classification (HCC)- Primary Essential hypertension, benign Cigarette smoker Tobacco use disorder Generalized anxiety disorder Chronic low back pain with sciatica, sciatica laterality unspecified, unspecified back pain laterality documented in this encounter [facility] note* Diagnosis Chronic low back pain with sciatica, sciatica laterality unspecified, unspecified back pain laterality documented in this encounter [facility] note* Diagnosis Chronic low back pain with sciatica, sciatica laterality unspecified, unspecified back pain laterality Tobacco use disorder documented in this encounter [facility] note* Diagnosis Bronchitis Bronchitis, not specified as acute or chronic documented in this encounter [facility] note* Diagnosis Generalized osteoarthrosis, involving multiple sites documented in this encounter [facility] note* Diagnosis Chronic low back pain with sciatica, sciatica laterality unspecified, unspecified back pain laterality documented in this encounter [facility] note* Diagnosis Stage 3 severe COPD by GOLD classification ([facility])- Primary Generalized osteoarthrosis, involving multiple sites Chronic low back pain with sciatica, sciatica laterality unspecified, unspecified back pain laterality Essential hypertension, benign Tobacco use disorder Dysthymic disorder documented in this encounter [facility] note* Diagnosis Chronic low back pain with sciatica, sciatica laterality unspecified, unspecified back pain laterality documented in this encounter [facility] note* Diagnosis Chronic low back pain with sciatica, sciatica laterality unspecified, unspecified back pain laterality Chronic obstructive pulmonary disease, unspecified COPD type ([facility]) documented in this encounter [facility] note* Diagnosis Stage 3 severe COPD by GOLD classification ([facility]) documented in this encounter [facility] note* Diagnosis Chronic low back pain with sciatica, sciatica laterality unspecified, unspecified back pain laterality [facility]* Diagnosis Oral infection- Primary Other and unspecified diseases of the oral soft tissues documented in this encounter [facility] note* Diagnosis Chronic low back pain with sciatica, sciatica laterality unspecified, unspecified back pain laterality- Primary Essential hypertension, benign Generalized anxiety disorder Depression, unspecified depression type Gastroesophageal reflux disease without esophagitis Esophageal reflux documented in this encounter [facility] note* Diagnosis Chronic low back pain with sciatica, sciatica laterality unspecified, unspecified back pain laterality Thrush, oral Candidiasis of mouth documented in this encounter [facility] note* Diagnosis Generalized osteoarthrosis, involving multiple sites [facility]* Diagnosis Encounter for screening mammogram for breast cancer documented [facility] this encounter [facility]* Diagnosis Chronic low back pain with sciatica, sciatica laterality unspecified, unspecified back pain laterality [facility]* Diagnosis Esophageal reflux documented in this encounter [facility] note* Diagnosis Chronic obstructive pulmonary disease, unspecified COPD type (HCC)- Primary Chronic low back pain with sciatica, sciatica laterality unspecified, unspecified back pain laterality Essential hypertension, benign Generalized anxiety disorder Depression, unspecified depression type Gastroesophageal reflux disease without esophagitis Esophageal reflux Thrush, oral Candidiasis of mouth Tobacco use disorder Screening for colon cancer Special screening for malignant neoplasms, colon documented in this encounter [facility] note* Diagnosis Chronic low back pain with sciatica, sciatica laterality unspecified, unspecified back pain laterality documented in this encounter [facility] note* Diagnosis Onset Date Resolution Status Admit Date Anxiety and depression acute Ju 2024 4:06am COPD with acute exacerbation chronic September 29, 2024 4:06am [facility] Work Phone: Evaluation note* Diagnosis Chronic low back pain with sciatica, sciatica laterality unspecified, unspecified back pain laterality documented in this encounter [facility] note* Diagnosis Stage 3 severe COPD by GOLD classification (HCC) Chronic low back pain with sciatica, sciatica laterality unspecified, unspecified back pain laterality documented in this encounter [facility] note* Diagnosis Stage 3 severe COPD by GOLD classification (HCC)- Primary Chronic low back pain with sciatica, sciatica laterality unspecified, unspecified back pain laterality Essential hypertension, benign Tobacco use disorder Generalized anxiety disorder Aortic valve stenosis, etiology of cardiac valve disease unspecified documented in this encounter [facility] note* Diagnosis Stage 3 severe COPD by GOLD classification (HCC)- Primary Generalized osteoarthrosis, involving multiple sites Generalized anxiety disorder Chronic low back pain with sciatica, sciatica laterality unspecified, unspecified back pain laterality documented in this encounter [facility] note* Diagnosis Stage 3 severe COPD by GOLD classification (HCC)- Primary Chronic low back pain with sciatica, sciatica laterality unspecified, unspecified back pain laterality documented in this encounter [facility] note* Diagnosis NO SHOW- Primary Stage 3 severe COPD by GOLD classification (HCC) Generalized osteoarthrosis, involving multiple sites Generalized anxiety disorder Chronic low back pain with sciatica, sciatica laterality unspecified, unspecified back pain laterality documented in this encounter [facility] note* Diagnosis Stage 3 severe COPD by GOLD classification (HCC) documented in this encounter [facility] note* Diagnosis No-show for appointment- Primary Stage 3 severe COPD by GOLD classification (HCC) Chronic low back pain with sciatica, sciatica laterality unspecified, unspecified back pain laterality documented in this encounter [facility] note* Diagnosis Palliative care by specialist- Primary Stage 3 severe COPD by GOLD classification (HCC) Chronic low back pain with sciatica, sciatica laterality unspecified, unspecified back pain laterality Generalized osteoarthrosis, involving multiple sites Generalized anxiety disorder Atrial fibrillation, unspecified type (HCC) History of lung cancer Personal history of malignant neoplasm of bronchus and lung History of lobectomy of lung Other chronic pain 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 [facility]* Diagnosis Stage 3 severe COPD by GOLD classification (HCC) documented in this encounter [facility] note* Diagnosis Severe aortic stenosis- Primary Aortic valve disorders Chronic respiratory failure with hypoxia ([facility]) documented in this encounter [facility] note* Diagnosis Preop cardiovascular exam- Primary Pre-operative cardiovascular examination Nonrheumatic aortic valve stenosis Preop cardiovascular exam- Primary Pre-operative cardiovascular examination documented in this encounter [facility] note* Diagnosis Itching- Primary Unspecified pruritic disorder [facility] José Smith [facility] July 20, 2023 4:55am Note Date/Time July 20, 2023 4:2 4am [facility] Medical Records Department [address] [place] [address] H&P Exam - Hospitalist 07/20/23 0406 MR#: [id number] Acct: [id number] Name: DENIA GONZALEZ Rep #:[id number] : 1955 68 From: José Abebe DO PCP: Dr. Yoseph Fall MD Status:AD M IN [place] [facility] [id number] HPI - General General Date of Admission: [...] anxiety, GERD and OA who presents to [facility] ER complaining of shortness of [...] exacerbation of COPD with clinical evidence of [id number] hypoxic respiratory insufficiency likely due to recent viral URI in the setting of ongoing tobacco abuse and she was then admitted to the general medical floor forongoin care for stay that is expected to be greater than 48 hours. [facility] Home Medications albuterol sulfate 90 mcg/actuation [...] % (Auto) 67.5, Lymph % (Auto) 23.7, [place]% (Auto) 7.6, Eos % (Auto) 0.6, Baso [...] needed nebulizers. Give Tylenol as needed for kjvw-ae-bcqdnzeg(level 1- 5/10) pain or fever. Continue Percocet prn for severe (level 6-10/10) pain. Tobacco cessation will be strongly encouraged with nicotine patch offeredto control cravings. 2. Viral URI likely triggering #1 - Check viral respiratory panel and placed oncontact and droplet precautions until confirmed negative. 3. Mxwxy-ky-rhnmzyl hypoxic respiratory insufficiency arising from #1 & [...] 55 minutes. Charges/Coding Visit Charges Inpatient E&M: 16438 Init Hosp L2 07/20/23 3640 <Electronically signed by José Cunningham DO> Cosigner Signature (if applicable): CC: Dr. José Cunningham DO; Dr. Yoseph Fall MD~ Signed [facility] Work Phone: History and physical note Author Dionne Porter [facility] Note Date/Time September 29, 2024 4:32a m [facility] Medical Records Department [address] [place] [address] H&P Exam - Hospitalist 09/29/24 0403 MR#: [id number] Acct: [id number] Name: DENIA GONZALEZ Rep #:[id number] : 1955 69 From: Dionne Porter MD PCP: Dr. Yoseph Fall MD Status:RE G ER Location: ED HPI - General General Date of Admission: 09/29/24 Date of Service: 09/29/24 Chief Complaint: Dyspnea, wheezing, cough. HPI Narrative The patient is a 69 y/o F w/ PMHx: GERD, RLS, Anxiety and Depression, Former tobacco use, Former EtOH Abuse, Hx Non-small cell lung cancer status post right lung lobectomy remotely 2003, COPD/Asthma with Chronic Hypoxic Respiratory Failure with allergic rhinitis, HTN who presents to the [facility] ED on 09/29/2024 with history of ~ 1 weeks worsening dyspnea, wheezing, nonproductive cough prompting her to utilize aggressive nebulizer treatments at home as well as increasing her home chronic prednisone therapy but unfortunatelyshe continued to have worsening symptoms more severe over the last 24 hours withno recent fever, chills, URI type symptoms prompting eventual ED evaluation. Patient does report she recently quit smoking several weeks previous and is asking for nicotine replacement. Workup in the ED included T99.1, heart 140, BP190/92, respiratory rate 24, 94% on 3 L nasal cannula, CBC with WBC 10.6, hemoglobin 13.6, platelet 198 with left shift, BMP with chloride 93,, oxide 33.1, BUN/creat 18/0.70, GFR 94, glucose 129, magnesium 2.0, NT proBNP 05/31/2017,chest x-ray with emphysematous changes with no acute cardiopulmonary findings. In the ED patient ministered DuoNeb therapy, albuterol, Solu-Medrol 125 mg IV x 1. PFSH Medical History RLS (restless legs syndrome) History of ETOH abuse Chronic hypoxic respiratory failure, on home oxygen therapy COPD (chronic obstructive pulmonary disease) Anxiety Depression Smoker Asthma Hypertension Migraines Medical History no medical history Home Medications ?Medication ?Instructions ?Recorded ?Last Taken ?Type albuterol sulfate 90 mcg/actuation 1 - 2 puff inhalati on Q4H PRN PRN 04/18/13 09/23/14 History aerosol inhaler (Ventolin HFA) Bronchodialation cyclobenzaprine 10 mg tablet 10 mg PO Q12H pain 09/23/14 History 10 MG fluticasone propionate 50 1 spray intranasal DAILY porfirio al 04/18/13 09/23/14 History mcg/actuation nasal congestion spray,suspension montelukast 10 mg tablet 10 mg PO DAILY allergies 09/23/14 History 10 MG omeprazole 20 mg capsule,delayed 20 mg PO DAILY heart burn 04/18/13 09/23/14 History release 20 MG tiotropium bromide 18 mcg capsule 1 puff inhalation DA BINU wheezing 04/18/13 09/23/14 History with inhalation device (Spiriva with HandiHaler) verapamil 240 mg tablet,extended 360 mg PO DAILY heart 04/18/13 09/23/14 History release 360 MG Oxygen, Home [Home Oxygen] 2.5 lpm PRN PRN Dyspnea 09/23/14 History sertraline 100 mg tablet 100 mg PO DAILY insomina 09/23/14 History fluticasone 500 mcg-salmeterol 50 1 puff inhalation BI D shortness of 10/26/13 09/23/14 Rx mcg/dose blistr powdr for breath ##1 inhalation (Advair Diskus) Ropinirole Hcl 0.25 mg PO QHS restless legs 09/23/14 Unknown History prednisone 10 mg tablet 15 mg PO PRN PRN FLARE UPS 1 06/04/14 Unknown History ipratropium 0.5 mg-albuterol 3 mg 3 ml inhalation Q4HW A.RT wheezing 05/13/16 Unknown Rx (2.5 mg base)/3 mL nebulization ##30 soln lorazepam 0.5 mg tablet 0.5 mg PO QHS anxiety #7 tab s 05/05/20 Unknown Rx nicotine (polacrilex) 2 mg gum 2 mg buccal Q2H #20 ea 07/22/23 Unknown Rx (Nicorette) azithromycin 250 mg tablet See Rx Instructions PO .COM PLEX #6 10/18/23 Unknown Rx (Zithromax) tabs cholecalciferol (vitamin D3) 50 50 mcg PO DAILY Unknown History mcg (2,000 unit) capsule (Vitamin [...] / Time No Known Allergies Allergy Verified 09/29/24 02:19 Family History Mother Hypertension Throat cancer Father Hypertension Stomach cancer Family History no significant family his Surgical History H/O exploratory laparotomy History of lung surgery History of cholecystectomy Social History household members: none Smoking Status: Former smoker alcohol intake: former substance use type: does not use ROS ROS Narrative Admission Review of Systems: CONSTITUTIONAL: No weight loss, fever, chills, + weakness or fatigue. HEENT: Eyes: No visual loss, blurred vision, double vision or yellow sclerae. Ears, Nose, Throat: No hearing loss, sneezing, congestion, runny nose or sore throat. SKIN: No rash or itching, lesions, wounds. CARDIOVASCULAR: No chest pain, chest pressure or chest discomfort, palpitations,edema, orthopnea, syncopal events. RESPIRATORY: + Dyspnea, cough without markedly productive sputum, wheezing. No hemoptysis. GASTROINTESTINAL: No anorexia, nausea, vomiting or diarrhea, abdominal pain, melena, BRBPR. GENITOURINARY: No dysuria, frequency, urgency or retention. NEUROLOGICAL: No headache, dizziness, syncope, paralysis, ataxia, numbness or tingling in the extremities, focal weakness, change in bowel or bladder control,seizure. MUSCULOSKELETAL: + muscle, back pain, joint pain or stiffness. HEMATOLOGIC: No anemia, bleeding or bruising. LYMPHATICS: No enlarged nodes. No history of splenectomy. PSYCHIATRIC: + History of anxiety and depression. ENDOCRINOLOGIC: No reports of sweating, cold or heat intolerance. No polyuria orpolydipsia. ALLERGIES: + Allergic rhinitis. Vital Signs Vital Signs Vital Signs: 09/29/24 02:19 09/29/24 02:23 09/29/24 02:25 Temperature 99.1 F 99.1 F Temperature Source Oral Oral Pulse Rate 140 H 140 H Respiratory Rate 24 H 25 H Respiratory Effort Short of Breath Respiratory Pattern Tachypnea Blood Pressure 190/92 H 190/92 H Blood Pressure Mean 124 124 Pulse Ox 94 96 Oxygen Delivery Method Nasal Cannula Nasal Cannula Nasal Cannula Oxygen Flow Rate (L/min) 3 3 3 09/29/24 03:00 09/29/24 03:23 Temperature 98.8 F Temperature Source Oral Pulse Rate 119 H 116 H Respiratory Rate 20 H 24 H Respiratory Effort Respiratory Pattern Normal Blood Pressure 154/89 H Blood Pressure Mean 110 Pulse Ox 97 Oxygen Delivery Method Nasal Cannula Oxygen Flow Rate (L/min) 3 Weight Weight: 157 lb 10.088 oz Body Mass Index (BMI) 27.0 Physical Exam Narrative Physical Examination: General: Awake, alert, oriented x 3 and cooperative, seated upright in the ED bed, fatigued, persistent tachypnea and some accessory muscle usage but no overtdistress. Skin: Normal color, normal turgor, no icterus, no cyanosis. HEENT: AT/NC, EOMI, PERRLA, MMM, no carotid bruits or JVD noted. Lungs: Severely diffusely diminished, > bases, on home 3L NC supplementation, persistent tachypnea and some accessory muscle usage but no overt distress, occasional soft end expiratory wheezing but very minimal as very poor air movement noted, no rales or rhonchi. Heart: Mildly tachycardic with regular rhythm; no gallop, rub audible. Abdomen: Soft, overweight, NTTP, ND, normal BS, no no appreciated HSM. Extremities: No cyanosis, clubbing, or edema. Neurological: Patient awake, alert, oriented as noted, cognitive function intact; pupils equally reactive to light and accommodation, cranial nerves grossnormal, moving all 4 extremities, no focal deficits, strength severely globally decreased secondary to acute presentation complaints. Psychiatric: Affect appears fatigued, no acute evidence of depressive or anxietyfeelings but does have underlying history. Results Lab / Micro Data 09/29/24 02:30 09/29/24 02:30 Labs: Laboratory Results - last 24 hr 09/29/24 02:30: WBC 10.6, RBC 4.88, Hgb 13.6, Hct 41.7, MCV 85.5, MCH 27.9, MCHC32.6, RDW Std Deviation 40.6, RDW Coeff of Augustin 13.1, Plt Count 198, MPV 9.7, Immature Gran % (Auto) 0.500, Neut % (Auto) 78.5 H, Lymph % (Auto) 13.2 L, [place] % (Auto) 6.9, Eos % (Auto) 0.7, Baso % (Auto) 0.2, Absolute Neuts (auto) 8.4 H, Absolute Lymphs (auto) 1.40, Nucleated RBC % 0, Sodium 136, Potassium 4.4, Chloride 93 L, Carbon Dioxide 33.1 H, Anion Gap 10, BUN 18, Creatinine 0.70, Estim Creat Clear Calc 64.35, Est GFR (MDRD) Non-Af 94, BUN/Creatinine Ratio 25.5 H, Glucose 129 H, Calcium 8.9, Magnesium 2.0, NT pro BNP II 518 Micro: Microbiology 09/29/24 02:30 Mucosa - Nose SARS-CoV-2, Influenza & RSV (PCR) - Final Imaging Radiology Impression Chest X-Ray 09/29/24 02:47 IMPRESSION: Stable appearance of the chest. Emphysematous changes without evidence of an acute cardiopulmonary abnormality. Reading Location: [id number] Assessment & Plan Assessment/Plan (1) COPD with acute exacerbation: PLAN: Plan The patient is a 69 y/o F w/ PMHx: GERD, RLS, Anxiety and Depression, Former tobacco use, Former EtOH Abuse, Hx Non-small cell lung cancer status post right lung lobectomy remotely 2003, COPD/Asthma with Chronic Hypoxic Respiratory Failure with allergic rhinitis, HTN who presents to the [facility] ED on 09/29/2024 with history of ~ 1 weeks worsening dyspnea, wheezing, nonproductive cough prompting her to utilize aggressive nebulizer treatments at home as well as increasing her home chronic prednisone therapy but unfortunatelyshe continued to have worsening symptoms more severe over the last 24 hours withno recent fever, chills, URI type symptoms prompting eventual ED evaluation. #1. Acute on Chronic COPD exacerbation with chronic hypoxic respiratory failure: Will admit to PCU, will obtain ABG, will maintain on oxygen with wean as tolerated to home oxygen supplementation, continue ATC duonebs, PRN albuterol, IV methylprednisolone, HOB, IS parameters, will obtain sputum Cx, respiratory viral panel, procalcitonin, will hold on immediately abx therapy butlow threshold to add if appropriate. #2. History non-small cell lung cancer: Patient diagnosed remotely, status postright lung lobectomy, considered in remission, encourage continued follow-up outpatient as previously arranged. #3. Hypertension: Continue home regimen including verapamil, PRN hydralazine. #4. Restless leg syndrome: Will continue patient on Requip regimen. #5. Anxiety and depression: Will continue patient on sertraline and low-dose lorazepam regimen. #6. Allergic rhinitis: Will continue patient home montelukast and fluticasone regimen. #7. Former alcohol abuse: Patient with previous heavy alcohol use, encourage continued sobriety. #8. Former tobacco use: Patient just recently quit approximately 3 weeks prior,had smoked in the past and quit previously but apparently it picked up again. Encourage continued tobacco cessation. #9. GERD: Will continue patient on PPI. #10. DVT prophylaxis: Lovenox. #11. CODE status: Patient HCPOA and living will are not in place but she notes she would want Mike her significant other to be her medical decision-maker if necessary. Discussed CODE status at length including difference between FULL code, DNR-CCA and DNR-CC status. Following discussions about the differences in these status, requested Full Code status. Charges/Coding Visit Charges Inpatient E&M: 22754 Init Hosp L3 09/29/24 0432 <Electronically signed by Dionne Porter MD> Cosigner Signature (if applicable): CC: Dr. Dionne Porter MD; Dr. Yoseph Fall MD~ Signed [facility] Work Phone: History and physical note Author Dionne Porter [facility] Note Date/Time December 26, 2024 8:21pm [facility] Medical Records Department [address] [place] [address] H&P Exam - Hospitalist 12/26/241955 MR#: [id number] Acct: [id number] Name: DENIA GONZALEZ Rep #:[id number] : 1955 69 From: Dionne Porter MD PCP: Dr. Yoseph Fall MD Status:AD M IN Location: [facility] [id number] HPI - General General Date of Admission: 12/26/24 Date of Service: 12/26/24 Chief Complaint: Dyspnea, wheezing, cough. HPI Narrative The patient is a 69 y/o F w/ PMHx: Valvular Heart Disease, GERD, RLS, Anxiety and Depression, Former tobacco use, Former EtOH Abuse, Hx Non-small cell lung cancer status post right lung lobectomy remotely 2003, COPD/Asthma with Chronic Hypoxic Respiratory Failure (2L NC) with allergic rhinitis, HTN who presents to the [facility] ED on 12/26/2024 with history of 3 to 4 days of progressively worsening fatigue, malaise, dyspnea with chest tightness and wheezing coupled unfortunately with significant panic attacks whenever she has been attempting to leave the house with a productive cough specifically of yellow sputum prompting ED evaluation be cautious. She does report that she is supposed to have a heart cath at [facility] in the next several weeks because of valvular heart disease for evaluation. Patient reports that her stools she believes have been normal in appearance. He does describe ongoing constant tightness with her dyspnea in the chest but no specific stabbing pain or significant pressure or pleuritic discomfort. Workup in the ED included T98.7, heart 100, BP 140/66, respiratory rate 20, 97% on 3 L normally per record on chronic 2 L nasal cannula supplementation with most recent repeat vitals heart rate 100, BP 128/75, respiratory rate 18, 98% on 3 L nasal cannula, CBC with WC 9.6, hgb 9.2, MCV 84.5, platelet 218 with left shift, BMP with chloride 88, carbon oxide 41.6, BUN/creatinine 16/0.64, GFR 96, glucose 112, initial [id number] with repeat delta 25, chest x-ray with surgical clips overlying the upper mediastinum and right paratracheal region with some local volume loss and linearscarring as well as COPD type changes with no acute cardiopulmonary findings, EKG with SR with nonspecific changes with no acute evidence of ischemia. In the ED patient ministered albuterol treatment x 3 and DuoNeb therapy x 1 in additionto Xanax 0.25 mg p.o. x 1, doxycycline 100 mg p.o. x 1 and Solu-Medrol 125 mg IVx 1. [facility] Medical History Afib Aortic valve stenosis RLS (restless legs syndrome) History of ETOH abuse Chronic hypoxic respiratory failure, on home oxygen therapy COPD (chronic obstructive pulmonary disease) Anxiety Depression Smoker Asthma Hypertension Migraines Home Medications ?Medication ?Instructions ?Recorded ?Last Taken ?Type albuterol sulfate 90 mcg/actuation 1 - 2 puff inhalati on Q4H PRN PRN 04/18/13 09/23/14 History aerosol inhaler (Ventolin HFA) Bronchodialation cyclobenzaprine 10 mg tablet 10 mg PO Q12H pain 09/23/14 History 10 MG fluticasone propionate 50 1 spray intranasal DAILY porfirio al 04/18/13 09/23/14 History mcg/actuation nasal congestion spray,suspension montelukast 10 mg tablet 10 mg PO DAILY allergies 09/23/14 History 10 MG omeprazole 20 mg capsule,delayed 20 mg PO DAILY heart burn 04/18/13 09/23/14 History release 20 MG tiotropium bromide 18 mcg capsule 1 puff inhalation DA BINU wheezing 04/18/13 09/23/14 History with inhalation device (Spiriva with HandiHaler) Oxygen, Home [Home Oxygen] 2.5 lpm PRN PRN Dyspnea 09/23/14 History sertraline 100 mg tablet 100 mg PO BID mood 10/22/13 09/23/14 History fluticasone 500 mcg-salmeterol 50 1 puff inhalation BI D shortness of 10/26/13 09/23/14 Rx mcg/dose blistr powdr for breath ##1 inhalation (Advair Diskus) Ropinirole Hcl 0.25 mg PO QHS restless legs 09/23/14 Unknown History prednisone 10 mg tablet 15 mg PO QODAY PRN FLARE UPS 04/03/15 Unknown History ipratropium 0.5 mg-albuterol 3 mg 3 ml inhalation Q4HW A.RT wheezing 05/13/16 Unknown Rx (2.5 mg base)/3 mL nebulization ##30 soln lorazepam 0.5 mg tablet 0.5 mg PO QHS anxiety #7 tab s 05/05/20 Unknown Rx nicotine (polacrilex) 2 mg gum 2 mg buccal Q2H to stop smoking 07/22/23 Unknown Rx (Nicorette) #20 ea cholecalciferol (vitamin D3) 50 50 mcg PO DAILY vitami n 10/18/23 Unknown History mcg (2,000 unit) capsule (Vitamin D3) ipratropium 0.5 mg-albuterol 3 mg 3 ml inhalation Q6H PRN shortness 10/18/23 Unknown Rx (2.5 mg base)/3 mL nebulization of breath or wheezing #180 mL soln buspirone 10 mg tablet 10 mg PO BID anxiety 5 Unknown History hydrocodone-acetaminophen 5-325mg 1 tab PO BID PRN PRN pain 10/03/24 Unknown History 5mg-325mg nicotine 14 mg/24 hr daily 14 mg transdermal DAILY prn #28 ea 10/09/24 Unknown Rx transdermal patch apixaban 5 mg tablet (Eliquis) 5 mg PO BID blood thinn e #60 tabs 11/03/24 Unknown Rx carvedilol 6.25 mg tablet 6.25 mg PO BID bp #60 tabs 0 11/03/24 Unknown Rx Allergy/AdvReac Type Severity Reaction Status Date / Time No Known Allergies Allergy Verified 12/26/24 13:56 Family History Mother Hypertension Throat cancer Father Hypertension Stomach cancer Surgical History H/O exploratory laparotomy History of lung surgery History of cholecystectomy Social History household members: significant other and none housing: apartment Smoking Status: Former smoker alcohol intake: former substance use type: does not use ROS ROS Narrative Admission Review of Systems: CONSTITUTIONAL: No weight loss, fever, chills, + weakness or fatigue. HEENT: Eyes: No visual loss, blurred vision, double vision or yellow sclerae. Ears, Nose, Throat: No hearing loss, sneezing, congestion, runny nose or sore throat. SKIN: No rash or itching, lesions, wounds. CARDIOVASCULAR: + Chest tightness, mild chronic not markedly pitting. No palpitations, orthopnea, syncopal events. RESPIRATORY: + Dyspnea, cough with productive sputum, wheezing. No hemoptysis. GASTROINTESTINAL: No anorexia, nausea, vomiting or diarrhea, abdominal pain, melena, BRBPR. GENITOURINARY: No dysuria, frequency, urgency or retention. NEUROLOGICAL: No headache, dizziness, syncope, paralysis, ataxia, numbness or tingling in the extremities, focal weakness, change in bowel or bladder control,seizure. MUSCULOSKELETAL: + muscle, back pain, joint pain or stiffness. HEMATOLOGIC: + New onset anemia, easy bleeding/bruising. LYMPHATICS: No enlarged nodes. No history of splenectomy. PSYCHIATRIC: + History of anxiety and depression. ENDOCRINOLOGIC: No reports of sweating, cold or heat intolerance. No polyuria orpolydipsia. ALLERGIES: + Allergic rhinitis, asthma/COPD. Vital Signs Vital Signs Vital Signs: 12/26/24 13:53 12/26/24 16:37 12/26/24 16:37 Temperature 98.7 F 98.7 F Temperature Source Oral Oral Pulse Rate 100 99 Respiratory Rate 20 H 22 H Respiratory Effort Respiratory Depth Respiratory Pattern Blood Pressure 144/66 H 135/75 H Blood Pressure Mean 92 95 Pulse Ox 97 99 Oxygen Delivery Method Nasal Cannula Room Air Nasal Cannula Oxygen Flow Rate (L/min) 3 3 12/26/24 16:37 12/26/24 17:24 12/26/24 17:28 Temperature Temperature Source Pulse Rate 102 H Respiratory Rate 23 H 20 H Respiratory Effort Normal Respiratory Depth Normal Respiratory Pattern Normal Blood Pressure Blood Pressure Mean Pulse Ox 99 Oxygen Delivery Method Nasal Cannula Room Air Oxygen Flow Rate (L/min) 3 12/26/24 18:05 12/26/24 18:14 Temperature Temperature Source Pulse Rate 87 100 Respiratory Rate 18 18 Respiratory Effort Respiratory Depth Respiratory Pattern Blood Pressure 129/75 H Blood Pressure Mean 93 Pulse Ox 98 Oxygen Delivery Method Oxygen Flow Rate (L/min) Weight Weight: 163 lb 2.273 oz Body Mass Index (BMI) 28.0 Physical Exam Narrative Physical Examination: General: Awake, alert, oriented x 3 and cooperative, seated upright in the ED bed, fatigued, breathing treatment ongoing currently, mild tachypnea persistent. Skin: Normal color, normal turgor, no icterus, no cyanosis except occasional stage ecchymoses, abrasion. HEENT: AT/NC, EOMI, PERRLA, mildly dry MM, mildly poor dentition, difficult discern carotid bruit given referred sounds from breathing treatment, no marked JVD evident. Lungs: Severely diminished, greater bases, tachypnea evident, some accessory muscle usage, expiratory wheezing primarily noted, no marked rales or rhonchi, breathing treatment in process. Heart: Mildly tachycardic with regular rhythm; no gallop, rub audible, + SM. Abdomen: Soft, overweight, NTTP, ND, distant normal BS, no markedly appreciated HSM. Extremities: No cyanosis, no clubbing, mild ankle not markedly pitting edema which she notes is chronic. Neurological: Patient awake, alert, oriented as noted, cognitive function intact; pupils equally reactive to light and accommodation, cranial nerves grossly normal, moving all 4 extremities, no focal deficits, strength moderatelyto severely globally decreased. Psychiatric: Affect appears fatigued, anxious, does have underlying anxiety and depressive history. Results Lab / Micro Data 12/26/24 16:20 12/26/24 16:20 Labs: Laboratory Results - last 24 hr 12/26/24 16:20: WBC 9.6, RBC 3.43 L, Hgb 9.2 L, Hct 29.0 L, MCV 84.5, MCH 26.8 L, MCHC 31.7 L, RDW Std Deviation 43.0, RDW Coeff of Augustin 14.0, Plt Count 219, MPV9.3, Immature Gran % (Auto) 0.800, Neut % (Auto) 83.2 H, Lymph % (Auto) 11.3 L, [place] % (Auto) 4.5, Eos % (Auto) 0.1, Baso % (Auto) 0.1, Absolute Neuts (auto) 8.0 H, Absolute Lymphs (auto) 1.08, Nucleated RBC % 0, Sodium 137, Potassium 4.0, Chloride 88 L, Carbon Dioxide 41.6 H, Anion Gap 8, BUN 16, Creatinine 0.64 L, Estim Creat Clear Calc 65.40, Est GFR (MDRD) Non-Af 96, BUN/Creatinine Ratio 25.1 H, Glucose 112 H, Calcium 8.9, Troponin T High Sens 25 H D 12/26/24 17:57: Troponin T Hi Sens 2 Hr 25 H Rhythm Strip Rhythm Strip: Sinus Rhythm Rate: 99 Ectopy: None Imaging Radiology Impression Chest X-Ray 12/26/24 15:28 IMPRESSION: Posttreatment changes. No acute abnormality. No significant change Reading [id number] Assessment & Plan Assessment/Plan (1) COPD with acute exacerbation: PLAN: Plan The patient is a 69 y/o F w/ PMHx: Valvular Heart Disease, GERD, RLS, Anxiety and Depression, Former tobacco use, Former EtOH Abuse, Hx Non-small cell lung cancer status post right lung lobectomy remotely 2003, COPD/Asthma with Chronic Hypoxic Respiratory Failure (2L NC) with allergic rhinitis, HTN who presents to the [facility] ED on 12/26/2024 with history of 3 to 4 days of progressively worsening fatigue, malaise, dyspnea with chest tightness and wheezing coupled unfortunately with significant panic attacks whenever she has been attempting to leave the house with a productive cough specifically of yellow sputum prompting ED evaluation be cautious. #1. Acute on Chronic COPD exacerbation with acute hypoxia on chronic hypoxic respiratory failure in addition to significant acute new onset normocytic anemiaof unclear significance as noted #2 with indeterminate cardiac enzymes of unclear significance: Will admit to PCU in case of BIPAP needs, will cycle cardiac enzymes to be cautious although suspect secondary to hypoxemia in the acute setting, will obtain ABG, will maintain on oxygen with wean as tolerated to home oxygen supplementation, continue ATC duonebs, PRN albuterol, IV methylprednisolone cautiously given #2 as noted, HOB, IS parameters, will obtainsputum Cx, respiratory viral panel, procalcitonin, administered doxycycline in the ED and will continue oral cefdinir in the interim; however, if procalcitionin normal may consider de-escalation. Will continue patient home montelukast and fluticasone home regimen. #2. Acute new onset normocytic anemia: Last labs at during prior admission anthony was started on Eliquis regimen given PAF/flutter, hemoglobin previous tothis was normal, upon current presentation hemoglobin 9.2, MCV 84.5, will temporarily hold NOAC, temporarily transition to clears until HH trending obtained, will request guaiac, iron panel, ferritin be cautious, continue to closely trend hemoglobin and if appropriate involve gastroenterology. Continue PPI oral regimen but will increase. Cycle HH. #3. Valvular heart disease: Recent cardiology visit 11/03/2024 of note, recent echocardiogram with severe concentric LVH with EF 70%, stage I diastolic dysfunction, severely calcified aortic valve with severe aortic valve stenosis with peak mean gradient 50 mmHg at which point patient was started at [facility], Coreg and verapamil as well as Eliquis with plan as noted for evaluation at [facility] with upcoming cardiac catheterization for consideration of TAVR. As notedabove #2 will cautiously this time hold Eliquis temporarily. #4. History non-small cell lung cancer: Patient diagnosed remotely, status postright lung lobectomy, considered in remission, encourage continued follow-up outpatient as previously arranged. #5. Hypertension: Continue home regimen including Coreg, verapamil, PRN hydralazine. #6. Restless leg syndrome: Will continue patient on Requip regimen. #7. Anxiety and depression: Will continue patient on sertraline, twice daily buspirone and low-dose lorazepam regimen, as noted administered low-dose of Xanax in the ED per ED physician. #8. Allergic rhinitis: Will continue patient home montelukast and fluticasone regimen. #9. Former alcohol abuse: Patient with previous heavy alcohol use, encourage continued sobriety. #10. Former tobacco use: Encouraged continued tobacco cessation. #11. PAF/flutter: Will continue patient home Coreg, Multaq regimen, as noted above #2 will temporarily hold Eliquis given concern for new onset acute normocytic anemia. #12. GERD: Will continue patient on PPI but increase temporarily given #2. #13. DVT prophylaxis: SCDs, holding NOAC as noted above given concern for new anemia. #14. CODE status: Patient MIRIAM is her significant Mike and living will is currently in place. Discussed CODE status at length including difference betweenFULL code, DNR-CCA and DNR-CC status. Following discussions about the differences in these status, requested Full Code status. She does however statestrongly following discussions that if her quality of life was nonexistent she would want to transition to comfort. Advanced Care Planning Face to Face Time: 16 minutes. Charges/Coding Visit Charges Inpatient E&M: 89924 Init Hosp L3 Procedures Hospitalists Procedures: 47291 Advncd Care Plan 30 Min 12/26/242020 <Electronically signed by Dionne Porter MD> Cosigner Signature (if applicable): CC: Dr. Dionne Porter MD; Dr. Yoseph Fall MD~ Signed [facility] Work Phone: Hospital Discharge instructions [...] needed for your shortness of breath and wheezing.[facility] Work Phone: Reason for referral (narrative)* Outpatient Procedure (Routine) - Pending Review Specialty Diagnoses / Procedures Referred By Contac t Referred To Contact [facility] Diagnoses Chronic obstructive pulmonary disease, unspecified COPD type (HCC) Procedures OXIMETRY WITH AMBULATION NONINVASIVE EAR/PULSE OXIMETRY MULTIPLE Michelle Marie MD [address] [address] Respiratory [place] [address] [place] [address] Referral ID Status Reason Start Date Expiration Date Visits Requested Visits Authorized [id number] Pending Review Auto-Generat ed Referral 01/13/2022 02/12/2023 1 1 [facility] for referral (narrative)* Diagnostic Procedure Only (Routine) - Pending Review Specialty Diagnoses / Procedures Referred By Contac Referred To Contact [facility] Diagnoses Encounter for screening mammogram for breast cancer Procedures MICKIE SCREENING SCREENING MAMMOGRAPHY BI 2-VIEW BREAST INC CAD Yoseph Fall MD [address] [place] [address] [facility] [address] [place] [address] Referral ID Status Reason Start Date Expiration Date Visits Requested Visits Authorized [id number] Pending Review Auto-Generat ed Referral 06/16/2023 07/15/2024 1 1 [facility] for referral (narrative)No reason for referral information availableWFirelands [facility] Work Phone: Advance Directives Documents on File Type Date Recorded Patient Sleeve Baster Expl anation Advance Directive(s) 08/04/2016 2:40 PM Advance Directive(s) 08/04/2016 3:52 PM Advance Directive(s) 06/21/2016 6:38 PM Documents on File Type Date Recorded Patient Sleeve Baster Expl anation Advance Directive(s) 08/04/2016 3:52 PM Documents on File Type Date Recorded Patient Sleeve Baster Expl anation Advance Directive(s) 08/04/2016 3:52 PM Advance Directive Response Recorded Date/ Time Advance Directives No May 08, 2016 10:32am Living Will No July 20, 2023 5:03am Power of Scanning Tech No July 19 5:03am Advance Directive Response Recorded Date/ Time Do you have a Healthcare Power of Scanning Tech? No September 29, 2024 2:42am Advance Directives No May 08, 2016 10:32am Advance Directive Response Recorded Date/ Time Do you have a Healthcare Power of Scanning Tech? No September 29, 2024 5:11am Advance Directives No May 08, 2016 10:32am Advance Directive Response Recorded Date/ Time Do you have a Healthcare Power of Scanning Tech? No September 29, 2024 5:11am Do you have a Healthcare Power of Scanning Tech? No December 26, 2024 4:37pm Advance Directives No May 08, 2016 10:32am Chief Complaint and Reason for Visit Chief Complaint ACUTE EXACERBATION O F COPD WITH [id number] Reason for Visit COPD (chronic obstru ctive pulmonary disease) Hypoxia Respiratory insufficiency Viral URI with cough COPD with acute exacerbation Chief Complaint ACUTE EXACERBATION O F COPD WITH [id number] ACUTE EXACERBATION OF COPD WITH [id number] ACUTE EXACERBATION OF COPD WITH [id number] Reason for Visit COPD (chronic obstru ctive pulmonary disease) Hypoxia Respiratory insufficiency Viral URI with cough COPD with acute exacerbation Chief Complaint Admit Date Shortness of breath September 29, 2024 4:03a m COPD EXACERBATION September 29, 2024 4:06a m Reason for Visit Admit Date Anxiety and depression September 29, 2024 4: 06am COPD with acute exacerbation September 29 4:06am Chief Complaint Admit Date Shortness of breath September 29, 2024 4:03a m COPD EXACERBATION September 29, 2024 11:36 am COPD EXACERBATION September 30, 2024 12:20 pm COPD EXACERBATION October 01, 2024 10:43 am COPD EXACERBATION October 02, 2024 10:00 am COPD EXACERBATION October 02, 2024 12:20 pm COPD EXACERBATION October 03, 2024 8:40 am COPD EXACERBATION October 03, 2024 12:1 8pm COPD EXACERBATION October 04, 2024 10:1 4am COPD EXACERBATION October 04, 2024 12:0 6pm COPD EXACERBATION October 05, 2024 12:3 3pm COPD EXACERBATION October 06, 2024 2:22 pm COPD EXACERBATION October 06, 2024 5:20 pm COPD EXACERBATION October 07, 2024 10:5 9am COPD EXACERBATION October 07, 2024 2:13 pm COPD EXACERBATION October 08, 2024 10:5 8am COPD EXACERBATION October 08, 2024 11:0 0am COPD EXACERBATION October 09, 2024 3:58 pm Reason for Visit Admit Date Afib September 29, 2024 11:36 am Anxiety and depression September 29, 2024 11 :36am Aortic valve stenosis September 29, 2024 11: 36am Tachycardia September 29, 2024 11:36 am COPD with acute exacerbation September 29 11:36am Non-small cell lung cancer September 29 11:36am Chief Complaint Admit Date Shortness of breath September 29, 2024 4:03a m COPD EXACERBATION September 29, 2024 11:36 am COPD EXACERBATION September 30, 2024 12:20 pm COPD EXACERBATION October 01, 2024 10:43 am COPD EXACERBATION October 02, 2024 10:00 am COPD EXACERBATION October 02, 2024 12:20 pm COPD EXACERBATION October 03, 2024 8:40 am COPD EXACERBATION October 03, 2024 12:1 8pm COPD EXACERBATION October 04, 2024 10:1 4am COPD EXACERBATION October 04, 2024 12:0 6pm COPD EXACERBATION October 05, 2024 12:3 3pm COPD EXACERBATION October 06, 2024 2:22 pm COPD EXACERBATION October 06, 2024 5:20 pm COPD EXACERBATION October 07, 2024 10:5 9am COPD EXACERBATION October 07, 2024 2:13 pm COPD EXACERBATION October 08, 2024 10:5 8am COPD EXACERBATION October 08, 2024 11:0 0am COPD EXACERBATION October 09, 2024 3:58 pm S/P [facility] 10/09 New AFIB/Severe October 12:58pm Reason for Visit Admit Date Anxiety and depression September 29, 2024 11 :36am Aortic valve stenosis September 29, 2024 11: 36am Tachycardia September 29, 2024 11:36 am Afib September 29, 2024 11:36 am COPD with acute exacerbation September 29 025 11:36am Non-small cell lung cancer September 29 11:36am Aortic valve stenosis November 03, 2024 12 :58pm Afib November 03, 2024 12:5 8pm Benign essential hypertension November 03, 2024 12:58pm Chief Complaint Admit Date Shortness of breath September 29, 2024 4:03a m COPD EXACERBATION September 29, 2024 11:36 am COPD EXACERBATION September 30, 2024 12:20 pm COPD EXACERBATION October 01, 2024 10:43 am COPD EXACERBATION October 02, 2024 10:00 am COPD EXACERBATION October 02, 2024 12:20 pm COPD EXACERBATION October 03, 2024 8:40 am COPD EXACERBATION October 03, 2024 12:1 8pm COPD EXACERBATION October 04, 2024 10:1 4am COPD EXACERBATION October 04, 2024 12:0 6pm COPD EXACERBATION October 05, 2024 12:3 3pm COPD EXACERBATION October 06, 2024 2:22 pm COPD EXACERBATION October 06, 2024 5:20 pm COPD EXACERBATION October 07, 2024 10:5 9am COPD EXACERBATION October 07, 2024 2:13 pm COPD EXACERBATION October 08, 2024 10:5 8am COPD EXACERBATION October 08, 2024 11:0 0am COPD EXACERBATION October 09, 2024 3:58 pm S/P [facility] 10/09 New AFIB/Severe October 12:58pm COPD EXACERBATION, ACUTE ANEMIA Septembe 2024 8:00pm SOB, Anxiety December 26, 2024 8:16pm Reason for Visit Admit Date Anxiety and depression September 29, 2024 11 :36am Aortic valve stenosis September 29, 2024 11: 36am Tachycardia September 29, 2024 11:36 am Afib September 29, 2024 11:36 am COPD with acute exacerbation September 29 11:36am Non-small cell lung cancer September 29 11:36am Aortic valve stenosis November 03, 2024 12 :58pm Afib November 03, 2024 12:5 8pm Benign essential hypertension November 03, 2024 12:58pm Acute anemia December 26, 2024 8:00pm COPD with acute exacerbation December 262024 8:00pm Family History Relationship Condition Age at Onset Recorded Date/T ratna Unknown Family History?No pe rtinent history Unknown October 24, 2013 5:34pm Family History?No pe rtinent history Unknown May 29, 2016 9:58am Relationship Condition Age at Onset Recorded Date/T ratna mother Hypertension Unknown Malignant neoplasm of throat Unknown father Hypertension Unknown Malignant neoplasm of stomach Unknown Reason for Referral Specialty Diagnoses / Procedures Referred By Contac t Referred To Contact Diagnoses Generalized osteoarthrosis, involving multiple sites Iman Person APRN.CNP [address] [place] [address] Referral ID Status Reason Start Date Expiration Date V isits Requested Visits Authorized [id number] Pending Review 1 1 Specialty Diagnoses / Procedures Referred By Contac t Referred To Contact Diagnoses Generalized osteoarthrosis, involving multiple sites Yoseph Fall MD [address] [place] [address] Referral ID Status Reason Start Date Expiration Date V isits Requested Visits Authorized [id number] Pending Review 1 1 Referral ID Status Reason Start Date Expiration Date V isits Requested Visits Authorized [id number] Pending Review 1 1 Summary Purpose Additional Source Comments Source Comments (unrecognize d section and content) In the event this informatio n is protected by the Federal Confidentiality of Alcohol and Drug Abuse Patient Records regulations: The Federal rules restrict any use of the information to criminally investigate or prosecute any alcohol or drug abuse patient.[facility] the event this information is protected by the Federal Confidentiality of Alcohol and Drug Abuse Patient Records regulations: The Federal rules restrict any use of the information to criminally investigate or prosecute any alcohol or drug abuse patient.[facility] the event this information is protected by the Federal Confidentiality of Alcohol and Drug Abuse Patient Records regulations: The Federal rules restrict any use of the information to criminally investigate or prosecute any alcohol or drug abuse patient.[facility] the event this information is protected by the Federal Confidentiality of Alcohol and Drug Abuse Patient Records regulations: The Federal rules restrict any use of the information to criminally investigate or prosecute any alcohol or drug abuse patient.[facility] the event this information is protected by the Federal Confidentiality of Alcohol and Drug Abuse Patient Records regulations: The Federal rules restrict any use of the information to criminally investigate or prosecute any alcohol or drug abuse patient.[facility] the event this information is protected by the Federal Confidentiality of Alcohol and Drug Abuse Patient Records regulations: The Federal rules restrict any use of the information to criminally investigate or prosecute any alcohol or drug abuse patient.[facility] the event this information is protected by the Federal Confidentiality of Alcohol and Drug Abuse Patient Records regulations: The Federal rules restrict any use of the information to criminally investigate or prosecute any alcohol or drug abuse patient.[facility] the event this information is protected by the Federal Confidentiality of Alcohol and Drug Abuse Patient Records regulations: The Federal rules restrict any use of the information to criminally investigate or prosecute any alcohol or drug abuse [facility]edoIn the event this information is protected by the Federal Confidentiality of Alcohol and Drug Abuse Patient Records regulations: The Federal rules restrict any use of the information to criminally investigate or prosecute any alcohol or drug abuse patient.[facility]edoIn the event this information is protected by the Federal Confidentiality of Alcohol and Drug Abuse Patient Records regulations: The Federal rules restrict any use of the information to criminally investigate or prosecute any alcohol or drug abuse patient.[facility] [place]edoIn the event this information is protected by the Federal Confidentiality of Alcohol and Drug Abuse Patient Records regulations: The Federal rules restrict any use of the information to criminally investigate or prosecute any alcohol or drug abuse patient.[facility]edoIn the event this information is protected by the Federal Confidentiality of Alcohol and Drug Abuse Patient Records regulations: The Federal rules restrict any use of the information to criminally investigate or prosecute any alcohol or drug abuse patient.[facility]edoIn the event this information is protected by the Federal Confidentiality of Alcohol and Drug Abuse Patient Records regulations: The Federal rules restrict any use of the information to criminally investigate or prosecute any alcohol or drug abuse patient.[facility] [place]edoIn the event this information is protected by the Federal Confidentiality of Alcohol and Drug Abuse Patient Records regulations: The Federal rules restrict any use of the information to criminally investigate or prosecute any alcohol or drug abuse patient.[facility]In the event this information is protected by the Federal Confidentiality of Alcohol and Drug Abuse Patient Records regulations: The Federal rules restrict any use of the information to criminally investigate or prosecute any alcohol or drug abuse patient.[facility] [place]In the event this information is protected by the Federal Confidentiality of Alcohol and Drug Abuse Patient Records regulations: The Federal rules restrict any use of the information to criminally investigate or prosecute any alcohol or drug abuse patient.[facility] [place]edoIn the event this information is protected by the Federal Confidentiality of Alcohol and Drug Abuse Patient Records regulations: The Federal rules restrict any use of the information to criminally investigate or prosecute any alcohol or drug abuse patient.[facility]In the event this information is protected by the Federal Confidentiality of Alcohol and Drug Abuse Patient Records regulations: The Federal rules restrict any use of the information to criminally investigate or prosecute any alcohol or drug abuse patient.[facility] [place]In the event this information is protected by the Federal Confidentiality of Alcohol and Drug Abuse Patient Records regulations: The Federal rules restrict any use of the information to criminally investigate or prosecute any alcohol or drug abuse patient.[facility] [place]edoIn the event this information is protected by the Federal Confidentiality of Alcohol and Drug Abuse Patient Records regulations: The Federal rules restrict any use of the information to criminally investigate or prosecute any alcohol or drug abuse patient.[facility]edoIn the event this information is protected by the Federal Confidentiality of Alcohol and Drug Abuse Patient Records regulations: The Federal rules restrict any use of the information to criminally investigate or prosecute any alcohol or drug abuse patient.[facility]In the event this information is protected by the Federal Confidentiality of Alcohol and Drug Abuse Patient Records regulations: The Federal rules restrict any use of the information to criminally investigate or prosecute any alcohol or drug abuse patient.[facility]In the event this information is protected by the Federal Confidentiality of Alcohol and Drug Abuse Patient Records regulations: The Federal rules restrict any use of the information to criminally investigate or prosecute any alcohol or drug abuse patient.[facility]edoIn the event this information is protected by the Federal Confidentiality of Alcohol and Drug Abuse Patient Records regulations: The Federal rules restrict any use of the information to criminally investigate or prosecute any alcohol or drug abuse patient.[facility] [place]edoIn the event this information is protected by the Federal Confidentiality of Alcohol and Drug Abuse Patient Records regulations: The Federal rules restrict any use of the information to criminally investigate or prosecute any alcohol or drug abuse patient.[facility]edoIn the event this information is protected by the Federal Confidentiality of Alcohol and Drug Abuse Patient Records regulations: The Federal rules restrict any use of the information to criminally investigate or prosecute any alcohol or drug abuse patient.[facility]edoIn the event this information is protected by the Federal Confidentiality of Alcohol and Drug Abuse Patient Records regulations: The Federal rules restrict any use of the information to criminally investigate or prosecute any alcohol or drug abuse patient.[facility]In the event this information is protected by the Federal Confidentiality of Alcohol and Drug Abuse Patient Records regulations: The Federal rules restrict any use of the information to criminally investigate or prosecute any alcohol or drug abuse patient.[facility]edoIn the event this information is protected by the Federal Confidentiality of Alcohol and Drug Abuse Patient Records regulations: The Federal rules restrict any use of the information to criminally investigate or prosecute any alcohol or drug abuse patient.[facility]edoIn the event this information is protected by the Federal Confidentiality of Alcohol and Drug Abuse Patient Records regulations: The Federal rules restrict any use of the information to criminally investigate or prosecute any alcohol or drug abuse patient.[facility]edoIn the event this information is protected by the Federal Confidentiality of Alcohol and Drug Abuse Patient Records regulations: The Federal rules restrict any use of the information to criminally investigate or prosecute any alcohol or drug abuse patient.[facility]edoIn the event this information is protected by the Federal Confidentiality of Alcohol and Drug Abuse Patient Records regulations: The Federal rules restrict any use of the information to criminally investigate or prosecute any alcohol or drug abuse patient.[facility]edoIn the event this information is protected by the Federal Confidentiality of Alcohol and Drug Abuse Patient Records regulations: The Federal rules restrict any use of the information to criminally investigate or prosecute any alcohol or drug abuse patient.[facility]edoIn the event this information is protected by the Federal Confidentiality of Alcohol and Drug Abuse Patient Records regulations: The Federal rules restrict any use of the information to criminally investigate or prosecute any alcohol or drug abuse patient.[facility]edoIn the event this information is protected by the Federal Confidentiality of Alcohol and Drug Abuse Patient Records regulations: The Federal rules restrict any use of the information to criminally investigate or prosecute any alcohol or drug abuse patient.[facility]edoIn the event this information is protected by the Federal Confidentiality of Alcohol and Drug Abuse Patient Records regulations: The Federal rules restrict any use of the information to criminally investigate or prosecute any alcohol or drug abuse patient.[facility]edoIn the event this information is protected by the Federal Confidentiality of Alcohol and Drug Abuse Patient Records regulations: The Federal rules restrict any use of the information to criminally investigate or prosecute any alcohol or drug abuse patient.[facility]edoIn the event this information is protected by the Federal Confidentiality of Alcohol and Drug Abuse Patient Records regulations: The Federal rules restrict any use of the information to criminally investigate or prosecute any alcohol or drug abuse patient.[facility]In the event this information is protected by the Federal Confidentiality of Alcohol and Drug Abuse Patient Records regulations: The Federal rules restrict any use of the information to criminally investigate or prosecute any alcohol or drug abuse patient.[facility]edoIn the event this information is protected by the Federal Confidentiality of Alcohol and Drug Abuse Patient Records regulations: The Federal rules restrict any use of the information to criminally investigate or prosecute any alcohol or drug abuse patient.[facility]In the event this information is protected by the Federal Confidentiality of Alcohol and Drug Abuse Patient Records regulations: The Federal rules restrict any use of the information to criminally investigate or prosecute any alcohol or drug abuse patient.[facility]In the event this information is protected by the Federal Confidentiality of Alcohol and Drug Abuse Patient Records regulations: The Federal rules restrict any use of the information to criminally investigate or prosecute any alcohol or drug abuse patient.[facility]edoIn the event this information is protected by the Federal Confidentiality of Alcohol and Drug Abuse Patient Records regulations: The Federal rules restrict any use of the information to criminally investigate or prosecute any alcohol or drug abuse patient.[facility]In the event this information is protected by the Federal Confidentiality of Alcohol and Drug Abuse Patient Records regulations: The Federal rules restrict any use of the information to criminally investigate or prosecute any alcohol or drug abuse patient.[facility]In the event this information is protected by the Federal Confidentiality of Alcohol and Drug Abuse Patient Records regulations: The Federal rules restrict any use of the information to criminally investigate or prosecute any alcohol or drug abuse patient.[facility]edoIn the event this information is protected by the Federal Confidentiality of Alcohol and Drug Abuse Patient Records regulations: The Federal rules restrict any use of the information to criminally investigate or prosecute any alcohol or drug abuse patient.[facility]edoIn the event this information is protected by the Federal Confidentiality of Alcohol and Drug Abuse Patient Records regulations: The Federal rules restrict any use of the information to criminally investigate or prosecute any alcohol or drug abuse patient.[facility]edoIn the event this information is protected by the Federal Confidentiality of Alcohol and Drug Abuse Patient Records regulations: The Federal rules restrict any use of the information to criminally investigate or prosecute any alcohol or drug abuse patient.[facility]edoIn the event this information is protected by the Federal Confidentiality of Alcohol and Drug Abuse Patient Records regulations: The Federal rules restrict any use of the information to criminally investigate or prosecute any alcohol or drug abuse patient.[facility]In the event this information is protected by the Federal Confidentiality of Alcohol and Drug Abuse Patient Records regulations: The Federal rules restrict any use of the information to criminally investigate or prosecute any alcohol or drug abuse patient.[facility]In the event this information is protected by the Federal Confidentiality of Alcohol and Drug Abuse Patient Records regulations: The Federal rules restrict any use of the information to criminally investigate or prosecute any alcohol or drug abuse patient.[facility]edoIn the event this information is protected by the Federal Confidentiality of Alcohol and Drug Abuse Patient Records regulations: The Federal rules restrict any use of the information to criminally investigate or prosecute any alcohol or drug abuse patient.[facility]edoIn the event this information is protected by the Federal Confidentiality of Alcohol and Drug Abuse Patient Records regulations: The Federal rules restrict any use of the information to criminally investigate or prosecute any alcohol or drug abuse patient.[facility]edoIn the event this information is protected by the Federal Confidentiality of Alcohol and Drug Abuse Patient Records regulations: The Federal rules restrict any use of the information to criminally investigate or prosecute any alcohol or drug abuse patient.[facility]edoIn the event this information is protected by the Federal Confidentiality of Alcohol and Drug Abuse Patient Records regulations: The Federal rules restrict any use of the information to criminally investigate or prosecute any alcohol or drug abuse patient.[facility]edoIn the event this information is protected by the Federal Confidentiality of Alcohol and Drug Abuse Patient Records regulations: The Federal rules restrict any use of the information to criminally investigate or prosecute any alcohol or drug abuse patient.[facility]In the event this information is protected by the Federal Confidentiality of Alcohol and Drug Abuse Patient Records regulations: The Federal rules restrict any use of the information to criminally investigate or prosecute any alcohol or drug abuse patient.[facility]edoIn the event this information is protected by the Federal Confidentiality of Alcohol and Drug Abuse Patient Records regulations: The Federal rules restrict any use of the information to criminally investigate or prosecute any alcohol or drug abuse patient.[facility]edoIn the event this information is protected by the Federal Confidentiality of Alcohol and Drug Abuse Patient Records regulations: The Federal rules restrict any use of the information to criminally investigate or prosecute any alcohol or drug abuse patient.[facility]In the event this information is protected by the Federal Confidentiality of Alcohol and Drug Abuse Patient Records regulations: The Federal rules restrict any use of the information to criminally investigate or prosecute any alcohol or drug abuse patient.[facility]In the event this information is protected by the Federal Confidentiality of Alcohol and Drug Abuse Patient Records regulations: The Federal rules restrict any use of the information to criminally investigate or prosecute any alcohol or drug abuse patient.[facility]In the event this information is protected by the Federal Confidentiality of Alcohol and Drug Abuse Patient Records regulations: The Federal rules restrict any use of the information to criminally investigate or prosecute any alcohol or drug abuse patient.[facility]In the event this information is protected by the Federal Confidentiality of Alcohol and Drug Abuse Patient Records regulations: The Federal rules restrict any use of the information to criminally investigate or prosecute any alcohol or drug abuse patient.[facility]In the event this information is protected by the Federal Confidentiality of Alcohol and Drug Abuse Patient Records regulations: The Federal rules restrict any use of the information to criminally investigate or prosecute any alcohol or drug abuse patient.[facility]In the event this information is protected by the Federal Confidentiality of Alcohol and Drug Abuse Patient Records regulations: The Federal rules restrict any use of the information to criminally investigate or prosecute any alcohol or drug abuse patient.[facility]edoIn the event this information is protected by the Federal Confidentiality of Alcohol and Drug Abuse Patient Records regulations: The Federal rules restrict any use of the information to criminally investigate or prosecute any alcohol or drug abuse patient.[facility]In the event this information is protected by the Federal Confidentiality of Alcohol and Drug Abuse Patient Records regulations: The Federal rules restrict any use of the information to criminally investigate or prosecute any alcohol or drug abuse patient.[facility]edoIn the event this information is protected by the Federal Confidentiality of Alcohol and Drug Abuse Patient Records regulations: The Federal rules restrict any use of the information to criminally investigate or prosecute any alcohol or drug abuse patient.[facility]In the event this information is protected by the Federal Confidentiality of Alcohol and Drug Abuse Patient Records regulations: The Federal rules restrict any use of the information to criminally investigate or prosecute any alcohol or drug abuse patient.[facility]In the event this information is protected by the Federal Confidentiality of Alcohol and Drug Abuse Patient Records regulations: The Federal rules restrict any use of the information to criminally investigate or prosecute any alcohol or drug abuse patient.[facility]edoIn the event this information is protected by the Federal Confidentiality of Alcohol and Drug Abuse Patient Records regulations: The Federal rules restrict any use of the information to criminally investigate or prosecute any alcohol or drug abuse patient.[facility]In the event this information is protected by the Federal Confidentiality of Alcohol and Drug Abuse Patient Records regulations: The Federal rules restrict any use of the information to criminally investigate or prosecute any alcohol or drug abuse patient.[facility]In the event this information is protected by the Federal Confidentiality of Alcohol and Drug Abuse Patient Records regulations: The Federal rules restrict any use of the information to criminally investigate or prosecute any alcohol or drug abuse patient.[facility]In the event this information is protected by the Federal Confidentiality of Alcohol and Drug Abuse Patient Records regulations: The Federal rules restrict any use of the information to criminally investigate or prosecute any alcohol or drug abuse patient.[facility]In the event this information is protected by the Federal Confidentiality of Alcohol and Drug Abuse Patient Records regulations: The Federal rules restrict any use of the information to criminally investigate or prosecute any alcohol or drug abuse patient.[facility]In the event this information is protected by the Federal Confidentiality of Alcohol and Drug Abuse Patient Records regulations: The Federal rules restrict any use of the information to criminally investigate or prosecute any alcohol or drug abuse patient.[facility]In the event this information is protected by the Federal Confidentiality of Alcohol and Drug Abuse Patient Records regulations: The Federal rules restrict any use of the information to criminally investigate or prosecute any alcohol or drug abuse patient.[facility]edoIn the event this information is protected by the Federal Confidentiality of Alcohol and Drug Abuse Patient Records regulations: The Federal rules restrict any use of the information to criminally investigate or prosecute any alcohol or drug abuse patient.[facility]In the event this information is protected by the Federal Confidentiality of Alcohol and Drug Abuse Patient Records regulations: The Federal rules restrict any use of the information to criminally investigate or prosecute any alcohol or drug abuse patient.[facility]In the event this information is protected by the Federal Confidentiality of Alcohol and Drug Abuse Patient Records regulations: The Federal rules restrict any use of the information to criminally investigate or prosecute any alcohol or drug abuse patient.[facility]edoIn the event this information is protected by the Federal Confidentiality of Alcohol and Drug Abuse Patient Records regulations: The Federal rules restrict any use of the information to criminally investigate or prosecute any alcohol or drug abuse patient.[facility]edoIn the event this information is protected by the Federal Confidentiality of Alcohol and Drug Abuse Patient Records regulations: The Federal rules restrict any use of the information to criminally investigate or prosecute any alcohol or drug abuse patient.[facility]edoIn the event this information is protected by the Federal Confidentiality of Alcohol and Drug Abuse Patient Records regulations: The Federal rules restrict any use of the information to criminally investigate or prosecute any alcohol or drug abuse patient.[facility]edoIn the event this information is protected by the Federal Confidentiality of Alcohol and Drug Abuse Patient Records regulations: The Federal rules restrict any use of the information to criminally investigate or prosecute any alcohol or drug abuse patient.[facility]edoIn the event this information is protected by the Federal Confidentiality of Alcohol and Drug Abuse Patient Records regulations: The Federal rules restrict any use of the information to criminally investigate or prosecute any alcohol or drug abuse patient.[facility]edoIn the event this information is protected by the Federal Confidentiality of Alcohol and Drug Abuse Patient Records regulations: The Federal rules restrict any use of the information to criminally investigate or prosecute any alcohol or drug abuse patient.[facility]edoIn the event this information is protected by the Federal Confidentiality of Alcohol and Drug Abuse Patient Records regulations: The Federal rules restrict any use of the information to criminally investigate or prosecute any alcohol or drug abuse patient.[facility]edoIn the event this information is protected by the Federal Confidentiality of Alcohol and Drug Abuse Patient Records regulations: The Federal rules restrict any use of the information to criminally investigate or prosecute any alcohol or drug abuse patient.[facility]edoIn the event this information is protected by the Federal Confidentiality of Alcohol and Drug Abuse Patient Records regulations: The Federal rules restrict any use of the information to criminally investigate or prosecute any alcohol or drug abuse patient.[facility]edoIn the event this information is protected by the Federal Confidentiality of Alcohol and Drug Abuse Patient Records regulations: The Federal rules restrict any use of the information to criminally investigate or prosecute any alcohol or drug abuse patient.[facility]edoIn the event this information is protected by the Federal Confidentiality of Alcohol and Drug Abuse Patient Records regulations: The Federal rules restrict any use of the information to criminally investigate or prosecute any alcohol or drug abuse patient.[facility]edoIn the event this information is protected by the Federal Confidentiality of Alcohol and Drug Abuse Patient Records regulations: The Federal rules restrict any use of the information to criminally investigate or prosecute any alcohol or drug abuse patient.[facility]edoIn the event this information is protected by the Federal Confidentiality of Alcohol and Drug Abuse Patient Records regulations: The Federal rules restrict any use of the information to criminally investigate or prosecute any alcohol or drug abuse patient.[facility]edoIn the event this information is protected by the Federal Confidentiality of Alcohol and Drug Abuse Patient Records regulations: The Federal rules restrict any use of the information to criminally investigate or prosecute any alcohol or drug abuse [facility]edo[facility] the event this information is protected by the Federal Confidentiality of Alcohol and Drug Abuse Patient Records regulations: The Federal rules restrict any use of the information to criminally investigate or prosecute any alcohol or drug abuse patient.[facility]edo[facility] the event this information is protected by the Federal Confidentiality of Alcohol and Drug Abuse Patient Records regulations: The Federal rules restrict any use of the information to criminally investigate or prosecute any alcohol or drug abuse patient.[facility]edo[facility] the event this information is protected by the Federal Confidentiality of Alcohol and Drug Abuse Patient Records regulations: The Federal rules restrict any use of the information to criminally investigate or prosecute any alcohol or drug abuse patient.[facility]edo[facility] the event this information is protected by the Federal Confidentiality of Alcohol and Drug Abuse Patient Records regulations: The Federal rules restrict any use of the information to criminally investigate or prosecute any alcohol or drug abuse patient.[facility]edo[facility] the event this information is protected by the Federal Confidentiality of Alcohol and Drug Abuse Patient Records regulations: The Federal rules restrict any use of the information to criminally investigate or prosecute any alcohol or drug abuse patient.[facility]edo[facility] the event this information is protected by the Federal Confidentiality of Alcohol and Drug Abuse Patient Records regulations: The Federal rules restrict any use of the information to criminally investigate or prosecute any alcohol or drug abuse patient.[facility]edo[facility] the event this information is protected by the Federal Confidentiality of Alcohol and Drug Abuse Patient Records regulations: The Federal rules restrict any use of the information to criminally investigate or prosecute any alcohol or drug abuse patient.[facility]edo[facility] the event this information is protected by the Federal Confidentiality of Alcohol and Drug Abuse Patient Records regulations: The Federal rules restrict any use of the information to criminally investigate or prosecute any alcohol or drug abuse patient.[facility]edo[facility] the event this information is protected by the Federal Confidentiality of Alcohol and Drug Abuse Patient Records regulations: The Federal rules restrict any use of the information to criminally investigate or prosecute any alcohol or drug abuse patient.[facility]edo[facility] the event this information is protected by the Federal Confidentiality of Alcohol and Drug Abuse Patient Records regulations: The Federal rules restrict any use of the information to criminally investigate or prosecute any alcohol or drug abuse patient.[facility] Care Teams (unrecognized sec tion and content) Animal Keeper Relationship Specialty Start Date End Date Yoseph Fall MD [address] [place] [address] PCP - General 04/17/09 Animal Keeper Relationship Specialty Start Date End Date Yoseph Fall MD [address] [place] [address] PCP - General 04/17/09 Animal Keeper Relationship Specialty Start Date End Date Yoseph Fall MD [address] [place] [address] PCP - General 04/17/09 Animal Keeper Relationship Specialty Start Date End Date Yoseph Fall MD [facility] [place] [address] PCP - General 04/17/09 Animal Keeper Relationship Specialty Start Date End Date Yoseph Fall MD [address] [place] [address] PCP - General 04/17/09 Animal Keeper Relationship Specialty Start Date End Date Yoseph Fall MD [address] [place] [address] PCP - General 04/17/09 Animal Keeper Relationship Specialty [place] [address] [place] [address], [place] [address] PCP - General 04/17/09 Animal Keeper Relationship Specialty Start Date End Date Yoseph Fall MD [address] [place] [address], [place] [address] PCP - General 04/17/09 Animal Keeper Relationship Specialty Start Date End Date Yoseph Fall MD [address] [place] [address] PCP - General 04/17/09 Animal Keeper Relationship Specialty Start Date End Date Yoseph Fall MD [address] [place] [address] PCP - General 04/17/09 Animal Keeper Relationship Specialty Start Date End Date Yoseph Fall MD [address] [place] [address] PCP - General 04/17/09 Animal Keeper Relationship Specialty Start Date End Date Yoseph Fall MD [address] [place] [address] PCP - General 04/17/09 Animal Keeper Relationship Specialty Start Date End Date Yoseph Fall MD [address] [place] [address] PCP - General 04/17/09 Animal Keeper Relationship Specialty Start Date End Date Yoseph Fall MD [address] [place] [address] PCP - General 04/17/09 Animal Keeper Relationship Specialty Start Date End Date Yoseph Fall MD [address] [place] [address] PCP - General 04/17/09 Animal Keeper Relationship Specialty Start Date End Date Yoseph Fall MD [address] [place] [address] PCP - General 04/17/09 Animal Keeper Relationship Specialty Start Date End Date Yoseph Fall MD [address] [place] [address] PCP - General 04/17/09 Animal Keeper Relationship Specialty Start Date End Date Yoseph Fall MD [address] [place] [address] PCP - General 04/17/09 Animal Keeper Relationship Specialty Start Date End Date Yoseph Fall MD [address] [place] [address] PCP - General 04/17/09 Animal Keeper Relationship Specialty Start Date End Date Yoseph Fall MD [address] [place] [address] PCP - General 04/17/09 Animal Keeper Relationship Specialty Start Date End Date Yoseph Fall MD [address] [place] [address] PCP - General 04/17/09 Animal Keeper Relationship Specialty Start Date End Date Yoseph Fall MD [address] [place], [place] [address] PCP - General 04/17/09 Animal Keeper Relationship Specialty Start Date End Date Yoseph Fall MD [address] [place], [place] [address] PCP - General 04/17/09 Animal Keeper Relationship Specialty Start Date End Date Yoseph Fall MD [address] [place], [place] [address] PCP - General 04/17/09 Animal Keeper Relationship Specialty Start Date End Date Yoseph Fall MD [address] [place], [place] [address] PCP - General 04/17/09 Animal Keeper Relationship Specialty Start Date End Date Yoseph Fall MD [address] [place], [place] [address] PCP - General 04/17/09 Team Status: Active Member Role Status Dates Dr. Yoseph Fall MD Primary Care Provider Active Team Status: Active Member Role Status Dates Dr. Yoseph Fall MD Primary Care Provider Active Dr. Dallas Mena MD Emergency Provider Active Dr. José Cunningham DO Admit Provider, Attending Pr ovider Active Animal Keeper Relationship Specialty Start Date End Date Yoseph Fall MD [address] [place], [place] [address] PCP - General 04/17/09 Team Status: Active [...] Dr. Jan Bolanos MD Attending Provider Active Animal Keeper Relationship Specialty Start Date End Date Yoseph Fall MD [address] [place] [address] PCP - General 04/17/09 Animal Keeper Relationship Specialty Start Date End Date Yoseph Fall MD [address] [place] [address] PCP - General 04/17/09 Animal Keeper Relationship Specialty Start Date End Date Yoseph Fall MD [address] [place] [address] PCP - General 04/17/09 Animal Keeper Relationship Specialty Start Date End Date Yoseph Fall MD [address] [place] [address] PCP - General 04/17/09 Animal Keeper Relationship Specialty Start Date End Date Yoseph Fall MD [address] [place] [address] PCP - General 04/17/09 Animal Keeper Relationship Specialty Start Date End Date Yoseph Fall MD [address] [place] [address] PCP - General 04/17/09 Animal Keeper Relationship Specialty Start Date End Date Yoseph Fall MD [address] [place] [address] PCP - General 04/17/09 Iman Person APRN.GRAPHIC DESIGN SPECIALIST [address] [place] [address] [facility] 04/02/24 Animal Keeper Relationship Specialty Start Date End Date Yoseph Fall MD [address] [place] [address] PCP - General 04/17/09 Iman Person APRN.GRAPHIC DESIGN SPECIALIST [address] [place] [address] [facility] 04/02/24 Animal Keeper Relationship Specialty Start Date End Date Yoseph Fall MD [address] [place] [address] PCP - General 04/17/09 Iman Person APRN.GRAPHIC DESIGN SPECIALIST [address] [place] [address] [facility] 04/02/24 Nelson Robert APRN.GRAPHIC DESIGN SPECIALIST [address] [place] [address] [facility] 04/11/24 Animal Keeper Relationship Specialty Start Date End Date Yoseph Fall MD [address] [place] [address] PCP - General 04/17/09 Iman Person APRN.GRAPHIC DESIGN SPECIALIST [address] [place] [address] [facility] 04/02/24 Nelson Robert APRN.GRAPHIC DESIGN SPECIALIST [address] [place] [address] [facility] 04/11/24 Animal Keeper Relationship Specialty Start Date End Date Yoseph Fall MD [address] [place] [address] PCP - General 04/17/09 Iman Person APRN.GRAPHIC DESIGN SPECIALIST [address] [place] [address] Junior Accountant Bookkeeper [facility] 04/02/24 Nelson Robert APRN.GRAPHIC DESIGN SPECIALIST [address] [place] [address] [facility] 04/11/24 Animal Keeper Relationship Specialty Start Date End Date Yoseph Fall MD [address] [place] [address] PCP - General 04/17/09 Iman Person APRN.GRAPHIC DESIGN SPECIALIST [address] [place] [address] [facility] 04/02/24 Nelson Robert APRN.GRAPHIC DESIGN SPECIALIST [address] [place] [address] [facility] 04/11/24 Animal Keeper Relationship Specialty Start Date End Date Yoseph Fall MD [address] [place] [address] PCP - General 04/17/09 Iman Person APRN.GRAPHIC DESIGN SPECIALIST [address] [place] [address] Junior Accountant Bookkeeper [facility] 04/02/24 Nelson Robert APRN.GRAPHIC DESIGN SPECIALIST [address] [place] [address] Junior Accountant Bookkeeper [facility] 04/11/24 Animal Keeper Relationship Specialty Start Date End Date Yoseph Fall MD [address] [place] [address] PCP - General 04/17/09 Iman Person APRN.GRAPHIC DESIGN SPECIALIST [address] [place] [address] Junior Accountant Bookkeeper [facility] 04/02/24 Nelson Robert APRN.GRAPHIC DESIGN SPECIALIST [address] [place] [address] Junior Accountant Bookkeeper [facility] 04/11/24 Animal Keeper Relationship Specialty Start Date End Date Yoseph Fall MD [address] [place] [address] PCP - General 04/17/09 Iman Person APRN.GRAPHIC DESIGN SPECIALIST [address] [place] [address] Junior Accountant Bookkeeper [facility] 04/02/24 Nelson Robert APRN.GRAPHIC DESIGN SPECIALIST [address] [place] [address] Junior Accountant Bookkeeper [facility] 04/11/24 Animal Keeper Relationship Specialty Start Date End Date Yoseph Fall MD [address] [place] [address] PCP - General 04/17/09 Iman Person APRN.GRAPHIC DESIGN SPECIALIST [address] [place] [address] Junior Accountant Bookkeeper Family [facility] 04/02/24 Nelson Robert APRN.GRAPHIC DESIGN SPECIALIST [address] [place] [address] Junior Accountant Bookkeeper [facility] 04/11/24 Animal Keeper Relationship Specialty Start Date End Date Yoseph Fall MD [address] [place] [address] PCP - General 04/17/09 Iman Person APRN.GRAPHIC DESIGN SPECIALIST [address] [place] [address] Junior Accountant Bookkeeper [facility] 04/02/24 Nelson Robert APRN.GRAPHIC DESIGN SPECIALIST [address] [place] [address] [facility] 04/11/24 Animal Keeper Relationship Specialty Start Date End Date Yoseph Fall MD [address] [place] [address] PCP - General 04/17/09 Iman Person APRN.GRAPHIC DESIGN SPECIALIST [address] [place] [address] Junior Accountant Bookkeeper [facility] 04/02/24 Nelson Robert APRN.GRAPHIC DESIGN SPECIALIST [address] [place] [address] [facility] 04/11/24 Animal Keeper Relationship Specialty Start Date End Date Yoseph Fall MD [address] [place] [address] PCP - General 04/17/09 Iman Person, IMPORT EXPORT AGENT.GRAPHIC DESIGN SPECIALIST [address] [place] [address] Junior Accountant Bookkeeper Family [facility] 04/02/24 Nelson Robert IMPORT EXPORT AGENT.GRAPHIC DESIGN SPECIALIST [address] [place] [address] Junior Accountant Bookkeeper Family [facility] 04/11/24 Animal Keeper Relationship Specialty Start Date End Date Yoseph Fall MD [address] [place] [address] PCP - General 04/17/09 Iman Person IMPORT EXPORT AGENT.GRAPHIC DESIGN SPECIALIST [address] [place] [address] Junior Accountant Bookkeeper Family [facility] 04/02/24 Nelson Robert IMPORT EXPORT AGENT.GRAPHIC DESIGN SPECIALIST [address] [place] [address] Junior Accountant Bookkeeper [facility] 04/11/24 Animal Keeper Relationship Specialty Start Date End Date Yoseph Fall MD [address] [place] [address] PCP - General 04/17/09 Nelson Robert IMPORT EXPORT AGENT.GRAPHIC DESIGN SPECIALIST [address] [place] [address] Junior Accountant Bookkeeper Family [facility] 04/11/24 Team Status: Active Member Role Status Dates Dr. Yoseph Fall MD Primary Care Provider Active Start: September 29, 2024 Dr. Riley Jeff DO Emergency Provider Active Start: September 29, 2024 Dr. Dionne Porter MD Attending Provider Active Start: September 29, 2024 Team Status: Active Member Role Status Dates Dr. Yoseph Fall MD Primary Care Provider Active Start: September 29, 2024 Dr. Riley Jeff DO Emergency Provider Active Start: September 29, 2024 Dr. Dionne Porter MD Admit Provider Active St art: September 29, 2024 Dr. Dionne Porter MD Attending Provider Active Start: September 29, 2024 Team Status: Inactive Member Role Status Dates Dr. Yoseph Fall MD Primary Care Provider Active Start: September 29, 2024 End: October 09, 2024 Dr. Riley Jeff DO Emergency Provider Active Start: September 29, 2024 End: October 09, 2024 Dr. Dionne Porter MD Admit Provider Active St art: September 29, 2024 End: October 09, 2024 Dr. Dionne Porter MD Other Provider Active St art: September 29, 2024 End: October 09, 2024 Dr. Jan Bolanos MD Other Provider Active Start: September 29, 2024 End: October 09, 2024 Dr. Junito Madrid MD Other Provider Active St art: September 29, 2024 End: October 09, 2024 Dr. Alessandro Palma MD Attending Provider Active Start: September 29, 2024 End: October 09, 2024 Dr. Lynne Schafer MD Other Provider Active St art: September 29, 2024 End: October 09, 2024 Team Status: Active Member Role Status Dates Dr. Yoseph Fall MD Primary Care Provider Active Start: September 30, 2024 Dr. Riley Jeff DO Emergency Provider Active Start: September 30, 2024 Dr. Dionne Porter MD Admit Provider Active St art: September 30, 2024 Dr. Dionne Porter MD Other Provider Active St art: September 30, 2024 Dr. Jan Bolanos MD Attending Provider Active Start: September 30, 2024 Dr. Jan Bolanos MD Other Provider Active Start: September 30, 2024 Team Status: Active Member Role Status Dates Dr. Yoseph Fall MD Primary Care Provider Active Start: October 01, 2024 Dr. Riley Jeff DO Emergency Provider Active Start: October 01, 2024 Dr. Dionne Porter MD Admit Provider Active St art: October 01, 2024 Dr. Dionne Porter MD Other Provider Active St art: October 01, 2024 Dr. Jan Bolanos MD Attending Provider Active Start: October 01, 2024 Dr. Jan Bolanos MD Other Provider Active Start: October 01, 2024 Team Status: Active Member Role Status Dates Dr. Yoseph Fall MD Primary Care Provider Active Start: October 02, 2024 Dr. Riley Jeff DO Emergency Provider Active Start: October 02, 2024 Dr. Dionne Porter MD Admit Provider Active St art: October 02, 2024 Dr. Dionne Porter MD Other Provider Active St art: October 02, 2024 Dr. Lynne Schafer MD Other Provider Active St art: October 02, 2024 Dr. Jan Bolanos MD Other Provider Active Start: October 02, 2024 Dr. Junito Madrid MD Attending Provider Active Start: October 02, 2024 Dr. Junito Madrid MD Other Provider Active St art: October 02, 2024 Team Status: Active Member Role Status Dates Dr. Yoseph Fall MD Primary Care Provider Active Start: October 02, 2024 Dr. Riley Jeff DO Emergency Provider Active Start: October 02, 2024 Dr. Dionne Porter MD Admit Provider Active St art: October 02, 2024 Dr. Dionne Porter MD Other Provider Active St art: October 02, 2024 Dr. Lynne Schafer MD Attending Provider Active Start: October 02, 2024 Dr. Lynne Schafer MD Other Provider Active St art: October 02, 2024 Dr. Jan Bolanos MD Other Provider Active Start: October 02, 2024 Dr. Junito Madrid MD Other Provider Active St art: October 02, 2024 Team Status: Active Member Role Status Dates Dr. Yoseph Fall MD Primary Care Provider Active Start: October 02, 2024 Dr. Dillon Lopez MD Attending Provider Active Start: October 02, 2024 Team Status: Active Member Role Status Dates Dr. Yoseph Fall MD Primary Care Provider Active Start: October 03, 2024 Dr. Riley Jeff DO Emergency Provider Active Start: October 03, 2024 Dr. Dionne Porter MD Admit Provider Active St art: October 03, 2024 Dr. Dionne Porter MD Other Provider Active St art: October 03, 2024 Dr. Lynne Schafer MD Other Provider Active St art: October 03, 2024 Dr. Jan Bolanos MD Other Provider Active Start: October 03, 2024 Dr. Junito Madrid MD Attending Provider Active Start: October 03, 2024 Dr. Junito Madrid MD Other Provider Active St art: October 03, 2024 Team Status: Active Member Role Status Dates Dr. Yoseph Fall MD Primary Care Provider Active Start: October 03, 2024 Dr. Riley Jeff DO Emergency Provider Active Start: October 03, 2024 Dr. Dionne Porter MD Admit Provider Active St art: October 03, 2024 Dr. Dionne Porter MD Other Provider Active St art: October 03, 2024 Dr. Lynne Schafer MD Attending Provider Active Start: October 03, 2024 Dr. Lynne Schafer MD Other Provider Active St art: October 03, 2024 Dr. Jan Bolanos MD Other Provider Active Start: October 03, 2024 Dr. Junito Madrid MD Other Provider Active St art: October 03, 2024 Team Status: Active Member Role Status Dates Dr. Yoseph Fall MD Primary Care Provider Active Start: October 04, 2024 Dr. Riley Jeff DO Emergency Provider Active Start: October 04, 2024 Dr. Dionne Porter MD Admit Provider Active St art: October 04, 2024 Dr. Dionne Porter MD Other Provider Active St art: October 04, 2024 Dr. Lynne Schafer MD Other Provider Active St art: October 04, 2024 Dr. Jan Bolanos MD Other Provider Active Start: October 04, 2024 Dr. Junito Madrid MD Attending Provider Active Start: October 04, 2024 Dr. Junito Madrid MD Other Provider Active St art: October 04, 2024 Team Status: Active Member Role Status Dates Dr. Yoseph Fall MD Primary Care Provider Active Start: October 04, 2024 Dr. Riley Jeff DO Emergency Provider Active Start: October 04, 2024 Dr. Dionne Porter MD Admit Provider Active St art: October 04, 2024 Dr. Dionne Porter MD Other Provider Active St art: October 04, 2024 Dr. Lynne Schafer MD Attending Provider Active Start: October 04, 2024 Dr. Lynne Schafer MD Other Provider Active St art: October 04, 2024 Dr. Jan Bolanos MD Other Provider Active Start: October 04, 2024 Dr. Junito Madrid MD Other Provider Active St art: October 04, 2024 Team Status: Active Member Role Status Dates Dr. Yoseph Fall MD Primary Care Provider Active Start: October 05, 2024 Dr. Riley Jeff DO Emergency Provider Active Start: October 05, 2024 Dr. Dionne Porter MD Admit Provider Active St art: October 05, 2024 Dr. Dionne Porter MD Other Provider Active St art: October 05, 2024 Dr. Lynne Schafer MD Attending Provider Active Start: October 05, 2024 Dr. Lynne Schafer MD Other Provider Active St art: October 05, 2024 Dr. Jan Bolanos MD Other Provider Active Start: October 05, 2024 Dr. Junito Madrid MD Other Provider Active St art: October 05, 2024 Team Status: Active Member Role Status Dates Dr. Yoseph Fall MD Primary Care Provider Active Start: October 06, 2024 Dr. Riley Jeff DO Emergency Provider Active Start: October 06, 2024 Dr. Dionne Porter MD Admit Provider Active St art: October 06, 2024 Dr. Dionne Porter MD Other Provider Active St art: October 06, 2024 Dr. Lynne Schafer MD Other Provider Active St art: October 06, 2024 Dr. Jan Bolanos MD Other Provider Active Start: October 06, 2024 Dr. Junito Madrid MD Other Provider Active St art: October 06, 2024 Dr. Michael Plasencia MD Attending Provider Active Start: October 06, 2024 Team Status: Active Member Role Status Dates Dr. Ysoeph Fall MD Primary Care Provider Active Start: October 06, 2024 Dr. Riley Jeff DO Emergency Provider Active Start: October 06, 2024 Dr. Dionne Porter MD Admit Provider Active St art: October 06, 2024 Dr. Dionne Porter MD Other Provider Active St art: October 06, 2024 Dr. Lynne Schafer MD Attending Provider Active Start: October 06, 2024 Dr. Lynne Schafer MD Other Provider Active St art: October 06, 2024 Dr. Jan Bolanos MD Other Provider Active Start: October 06, 2024 Dr. Junito Madrid MD Other Provider Active St art: October 06, 2024 Team Status: Active Member Role Status Dates Dr. Yoseph Fall MD Primary Care Provider Active Start: October 07, 2024 Dr. Riley Jeff DO Emergency Provider Active Start: October 07, 2024 Dr. Dionne Porter MD Admit Provider Active St art: October 07, 2024 Dr. Dionne Porter MD Other Provider Active St art: October 07, 2024 Dr. Lynne Scahfer MD Other Provider Active St art: October 07, 2024 Dr. Jan Bolanos MD Other Provider Active Start: October 07, 2024 Dr. Junito Madrid MD Other Provider Active St art: October 07, 2024 Dr. Michael Plasencia MD Attending Provider Active Start: October 07, 2024 Team Status: Active Member Role Status Dates Dr. Yoseph Fall MD Primary Care Provider Active Start: October 07, 2024 Dr. Riley Jeff DO Emergency Provider Active Start: October 07, 2024 Dr. Dionne Porter MD Admit Provider Active St art: October 07, 2024 Dr. Dionne Porter MD Other Provider Active St art: October 07, 2024 Dr. Lynne Schafer MD Attending Provider Active Start: October 07, 2024 Dr. Lynne Schafer MD Other Provider Active St art: October 07, 2024 Dr. Jan Bolanos MD Other Provider Active Start: October 07, 2024 Dr. Junito Madrid MD Other Provider Active St art: October 07, 2024 Team Status: Active Member Role Status Dates Dr. Yoseph Fall MD Primary Care Provider Active Start: October 08, 2024 Dr. Riley Jeff DO Emergency Provider Active Start: October 08, 2024 Dr. Dionne Porter MD Admit Provider Active St art: October 08, 2024 Dr. Dionne Porter MD Other Provider Active St art: October 08, 2024 Dr. yLnne Schafer MD Other Provider Active St art: October 08, 2024 Dr. Jan Bolanos MD Other Provider Active Start: October 08, 2024 Dr. Junito Madrid MD Other Provider Active St art: October 08, 2024 Dr. Michael Plasencia MD Attending Provider Active Start: October 08, 2024 Team Status: Active Member Role Status Dates Dr. Yoseph Fall MD Primary Care Provider Active Start: October 08, 2024 Dr. Riley Jeff DO Emergency Provider Active Start: October 08, 2024 Dr. Dionne Porter MD Admit Provider Active St art: October 08, 2024 Dr. Dionne Porter MD Other Provider Active St art: October 08, 2024 Dr. Lynne Schafer MD Attending Provider Active Start: October 08, 2024 Dr. Lynne Schafer MD Other Provider Active St art: October 08, 2024 Dr. Jan Bolanos MD Other Provider Active Start: October 08, 2024 Dr. Junito Madrid MD Other Provider Active St art: October 08, 2024 Team Status: Active Member Role Status Dates Dr. Yoseph Fall MD Primary Care Provider Active Start: October 09, 2024 Dr. Riley Jeff DO Emergency Provider Active Start: October 09, 2024 Dr. Dionne Porter MD Admit Provider Active St art: October 09, 2024 Dr. Dionne Porter MD Other Provider Active St art: October 09, 2024 Dr. Jan Bolanos MD Other Provider Active Start: October 09, 2024 Dr. Junito Madrid MD Other Provider Active St art: October 09, 2024 Dr. Alessandro Palma MD Attending Provider Active Start: October 09, 2024 Dr. Alessandro Palma MD Other Provider Active Sta rt: October 09, 2024 Dr. Lynne Schafer MD Other Provider Active St art: October 09, 2024 Animal Keeper Relationship Specialty Start Date End Date Yoseph Fall MD [address] [place] [address] PCP - General 04/17/09 Nelson Robert APRN.GRAPHIC DESIGN SPECIALIST [address] [place] [address] Junior Accountant Bookkeeper [facility] 04/11/24 Animal Keeper Relationship Specialty Start Date End Date Yoseph Fall MD [address] [place] [address] PCP - General 04/17/09 Nelson Robert APRN.GRAPHIC DESIGN SPECIALIST [address] [place] [address] Junior Accountant Bookkeeper [facility] 04/11/24 Animal Keeper Relationship Specialty Start Date End Date Yoseph Fall MD [address] [place] [address] PCP - General 04/17/09 Nelson Robert APRN.GRAPHIC DESIGN SPECIALIST [address] [place] [address] [facility] Animal Keeper Relationship Specialty Start Date End Date Yoseph Fall MD [address] [place] [address] PCP - General 04/17/09 Nelson Robert APRN.GRAPHIC DESIGN SPECIALIST [address] [place] [address] [facility] 04[facility]11/24 Animal Keeper Relationship Specialty Start Date End Date Yoseph Fall MD [address] [place] [address] PCP - General 04/17/09 Nelson Robert APRN.GRAPHIC DESIGN SPECIALIST [address] [place] [address] Junior Accountant Bookkeeper [facility] 04/11/24 Animal Keeper Relationship Specialty Start Date End Date Yoseph Fall MD [address] [place] [address] PCP - General 04/17/09 Nelson Robert, IMPORT EXPORT AGENT.GRAPHIC DESIGN SPECIALIST [address] [place] [address] [facility] 04/11/24 Animal Keeper Relationship Specialty Start Date End Date Yoseph Fall MD [address] [place] [address] PCP - General 04/17/09 Nelson Robert, IMPORT EXPORT AGENT.GRAPHIC DESIGN SPECIALIST [address] [place] [address] [facility] 04/11/24 Animal Keeper Relationship Specialty Start Date End Date Yoseph Fall MD [address] [place] [address] PCP - General 04/17/09 Nelson Robert, IMPORT EXPORT AGENT.GRAPHIC DESIGN SPECIALIST [address] [place] [address] [facility] 04/11/24 Animal Keeper Relationship Specialty Start Date End Date Yoseph Fall MD [address] [place] [address] PCP - General 04/17/09 Nelson Robert, IMPORT EXPORT AGENT.GRAPHIC DESIGN SPECIALIST [address] [place], [place] [address] Junior Accountant Bookkeeper [facility] 04/11/24 Animal Keeper Relationship Specialty Start Date End Date Yoseph Fall MD [address] [place], [place] [address] PCP - General 04/17/09 Nelson Robert, IMPORT EXPORT AGENT.GRAPHIC DESIGN SPECIALIST [address] [place], [place] [id number] Junior Accountant Bookkeeper [facility] 04/11/24 Animal Keeper Relationship Specialty Start Date End Date Yoseph Fall MD [address] [place], [place] [address] PCP - General 04/17/09 Nelson Robert, IMPORT EXPORT AGENT.GRAPHIC DESIGN SPECIALIST [address] [place], [place] [address] Junior Accountant Bookkeeper [facility] 04/11/24 Team Status: Active Member Role/Relationship Status Dates Dr. Yoseph Fall MD Primary Care Provider Active Team Status: Active Member Role/Relationship Status Dates Dr. Yoseph Fall MD Primary Care Provider Active Start: September 29, 2024 Dr. Riley Jeff DO Emergency Provider Active Start: September 29, 2024 Dr. Dionne Porter MD Attending Provider Active Start: September 29, 2024 Team Status: Inactive Member Role/Relationship Status Dates Dr. Yoseph Fall MD Primary Care Provider Active Start: September 29, 2024 End: October 09, 2024 Dr. Riley Jeff DO Emergency Provider Active Start: September 29, 2024 End: October 09, 2024 Dr. Dionne Porter MD Admit Provider Active St art: September 29, 2024 End: October 09, 2024 Dr. Dionne Porter MD Other Provider Active St art: September 29, 2024 End: October 09, 2024 Dr. Jan Bolanos MD Other Provider Active Start: September 29, 2024 End: October 09, 2024 Dr. Junito Madrid MD Other Provider Active St art: September 29, 2024 End: October 09, 2024 Dr. Alessandro Palma MD Attending Provider Active Start: September 29, 2024 End: October 09, 2024 Dr. Lynne [place] MD Other Provider Active St art: September 29, 2024 End: October 09, 2024 Team Status: Active Member Role/Relationship Status Dates Dr. Yoseph Fall MD Primary Care Provider Active Start: September 30, 2024 Dr. Riley Jeff DO Emergency Provider Active Start: September 30, 2024 Dr. Dionne Porter MD Admit Provider Active St art: September 30, 2024 Dr. Dionne Porter MD Other Provider Active St art: September 30, 2024 Dr. Jan Bolanos MD Attending Provider Active Start: September 30, 2024 Dr. Jan Bolanos MD Other Provider Active Start: September 30, 2024 Team Status: Active Member Role/Relationship Status Dates Dr. Yoseph Fall MD Primary Care Provider Active Start: October 01, 2024 Dr. Riley Jeff DO Emergency Provider Active Start: October 01, 2024 Dr. Dionne Porter MD Admit Provider Active St art: October 01, 2024 Dr. Dionne Porter MD Other Provider Active St art: October 01, 2024 Dr. Jan Bolanos MD Attending Provider Active Start: October 01, 2024 Dr. Jan Bolanos MD Other Provider Active Start: October 01, 2024 Team Status: Active Member Role/Relationship Status Dates Dr. Yoseph Fall MD Primary Care Provider Active Start: October 02, 2024 Dr. Riley Jeff DO Emergency Provider Active Start: October 02, 2024 Dr. Dionne Porter MD Admit Provider Active St art: October 02, 2024 Dr. Dionne Porter MD Other Provider Active St art: October 02, 2024 Dr. Lynne [place] MD Other Provider Active St art: October 02, 2024 Dr. Jan Bolanos MD Other Provider Active Start: October 02, 2024 Dr. Junito Madrid MD Attending Provider Active Start: October 02, 2024 Dr. Junito Madrid MD Other Provider Active St art: October 02, 2024 Team Status: Active Member Role/Relationship Status Dates Dr. Yoseph Fall MD Primary Care Provider Active Start: October 02, 2024 Dr. Riley Jeff DO Emergency Provider Active Start: October 02, 2024 Dr. Dionne Porter MD Admit Provider Active St art: October 02, 2024 Dr. Dionne Porter MD Other Provider Active St art: October 02, 2024 Dr. Lynne [place] MD Attending Provider Active Start: October 02, 2024 Dr. Lynne [place] MD Other Provider Active St art: October 02, 2024 Dr. Jan Bolanos MD Other Provider Active Start: October 02, 2024 Dr. Junito Madrid MD Other Provider Active St art: October 02, 2024 Team Status: Active Member Role/Relationship Status Dates Dr. Yoseph Fall MD Primary Care Provider Active Start: October 02, 2024 Dr. Dillon Lopez MD Attending Provider Active Start: October 02, 2024 Team Status: Active Member Role/Relationship Status Dates Dr. Yoseph Fall MD Primary Care Provider Active Start: October 03, 2024 Dr. Riley Jeff DO Emergency Provider Active Start: October 03, 2024 Dr. Dionne Porter MD Admit Provider Active St art: October 03, 2024 Dr. Dionne Porter MD Other Provider Active St art: October 03, 2024 Dr. Lynne [place] MD Other Provider Active St art: October 03, 2024 Dr. Jan Bolanos MD Other Provider Active Start: October 03, 2024 Dr. Junito Madrid MD Attending Provider Active Start: October 03, 2024 Dr. Junito Madrid MD Other Provider Active St art: October 03, 2024 Team Status: Active Member Role/Relationship Status Dates Dr. Yoseph Fall MD Primary Care Provider Active Start: October 03, 2024 Dr. Riley Jeff DO Emergency Provider Active Start: October 03, 2024 Dr. Dionne Porter MD Admit Provider Active St art: October 03, 2024 Dr. Dionne Porter MD Other Provider Active St art: October 03, 2024 Dr. Lynne [place] MD Attending Provider Active Start: October 03, 2024 Dr. Lynne [place] MD Other Provider Active St art: October 03, 2024 Dr. Jan Bolanos MD Other Provider Active Start: October 03, 2024 Dr. Junito Madrid MD Other Provider Active St art: October 03, 2024 Team Status: Active Member Role/Relationship Status Dates Dr. Yoseph Fall MD Primary Care Provider Active Start: October 04, 2024 Dr. Riley Jeff DO Emergency Provider Active Start: October 04, 2024 Dr. Dionne Porter MD Admit Provider Active St art: October 04, 2024 Dr. Dionne Porter MD Other Provider Active St art: October 04, 2024 Dr. Lynne [place] MD Other Provider Active St art: October 04, 2024 Dr. Jan Bolanos MD Other Provider Active Start: October 04, 2024 Dr. Junito Madrid MD Attending Provider Active Start: October 04, 2024 Dr. Junito Madrid MD Other Provider Active St art: October 04, 2024 Team Status: Active Member Role/Relationship Status Dates Dr. Yoseph Fall MD Primary Care Provider Active Start: October 04, 2024 Dr. Riley Jeff DO Emergency Provider Active Start: October 04, 2024 Dr. Dionne Porter MD Admit Provider Active St art: October 04, 2024 Dr. Dionne Porter MD Other Provider Active St art: October 04, 2024 Dr. Lynne [place] MD Attending Provider Active Start: October 04, 2024 Dr. Lynne [place] MD Other Provider Active St art: October 04, 2024 Dr. Jan Bolanos MD Other Provider Active Start: October 04, 2024 Dr. Junito Madrid MD Other Provider Active St art: October 04, 2024 Team Status: Active Member Role/Relationship Status Dates Dr. Yoseph Fall MD Primary Care Provider Active Start: October 05, 2024 Dr. Riley Jeff DO Emergency Provider Active Start: October 05, 2024 Dr. Dionne Porter MD Admit Provider Active St art: October 05, 2024 Dr. Dionne Porter MD Other Provider Active St art: October 05, 2024 Dr. Lynne [place] MD Attending Provider Active Start: October 05, 2024 Dr. Lynne cShafer MD Other Provider Active St art: October 05, 2024 Dr. Jan Bolanos MD Other Provider Active Start: October 05, 2024 Dr. Junito Madrid MD Other Provider Active St art: October 05, 2024 Team Status: Active Member Role/Relationship Status Dates Dr. Yoseph Fall MD Primary Care Provider Active Start: October 06, 2024 Dr. Riley Jeff DO Emergency Provider Active Start: October 06, 2024 Dr. Dionne Porter MD Admit Provider Active St art: October 06, 2024 Dr. Dionne Porter MD Other Provider Active St art: October 06, 2024 Dr. Lynne [place] MD Other Provider Active St art: October 06, 2024 Dr. Jan Bolanos MD Other Provider Active Start: October 06, 2024 Dr. Junito Madrid MD Other Provider Active St art: October 06, 2024 Dr. Michael Plasencia MD Attending Provider Active Start: October 06, 2024 Team Status: Active Member Role/Relationship Status Dates Dr. Yoseph Fall MD Primary Care Provider Active Start: October 06, 2024 Dr. Riley Jeff DO Emergency Provider Active Start: October 06, 2024 Dr. Dionne Porter MD Admit Provider Active St art: October 06, 2024 Dr. Dionne Porter MD Other Provider Active St art: October 06, 2024 Dr. Lynne [place] MD Attending Provider Active Start: October 06, 2024 Dr. Lynne [place] MD Other Provider Active St art: October 06, 2024 Dr. Jan Bolanos MD Other Provider Active Start: October 06, 2024 Dr. Junito Madrid MD Other Provider Active St art: October 06, 2024 Team Status: Active Member Role/Relationship Status Dates Dr. Yoseph Fall MD Primary Care Provider Active Start: October 07, 2024 Dr. Riley Jeff DO Emergency Provider Active Start: October 07, 2024 Dr. Dionne Porter MD Admit Provider Active St art: October 07, 2024 Dr. Dionne Porter MD Other Provider Active St art: October 07, 2024 Dr. Lynne Shcafer MD Other Provider Active St art: October 07, 2024 Dr. Jan Bolanos MD Other Provider Active Start: October 07, 2024 Dr. Junito Madrid MD Other Provider Active St art: October 07, 2024 Dr. Michael Plasencia MD Attending Provider Active Start: October 07, 2024 Team Status: Active Member Role/Relationship Status Dates Dr. Yoseph Fall MD Primary Care Provider Active Start: October 07, 2024 Dr. Riley Jeff DO Emergency Provider Active Start: October 07, 2024 Dr. Dionne Porter MD Admit Provider Active St art: October 07, 2024 Dr. Dionne Porter MD Other Provider Active St art: October 07, 2024 Dr. Lynne [place] MD Attending Provider Active Start: October 07, 2024 Dr. Lynne Schafer MD Other Provider Active St art: October 07, 2024 Dr. Jan Bolanos MD Other Provider Active Start: October 07, 2024 Dr. Junito Madrid MD Other Provider Active St art: October 07, 2024 Team Status: Active Member Role/Relationship Status Dates Dr. Yoseph Fall MD Primary Care Provider Active Start: October 08, 2024 Dr. Riley Jeff DO Emergency Provider Active Start: October 08, 2024 Dr. Dionne Porter MD Admit Provider Active St art: October 08, 2024 Dr. Dionne Porter MD Other Provider Active St art: October 08, 2024 Dr. Lynne Schafer MD Other Provider Active St art: October 08, 2024 Dr. Jan Bolanos MD Other Provider Active Start: October 08, 2024 Dr. Junito Madrid MD Other Provider Active St art: October 08, 2024 Dr. Michael Plasencia MD Attending Provider Active Start: October 08, 2024 Team Status: Active Member Role/Relationship Status Dates Dr. Yoseph Fall MD Primary Care Provider Active Start: October 08, 2024 Dr. Riley Jeff DO Emergency Provider Active Start: October 08, 2024 Dr. Dionne Porter MD Admit Provider Active St art: October 08, 2024 Dr. Dionne Porter MD Other Provider Active St art: October 08, 2024 Dr. Lynne [place] MD Attending Provider Active Start: October 08, 2024 Dr. Lynne Schafer MD Other Provider Active St art: October 08, 2024 Dr. Jan Bolanos MD Other Provider Active Start: October 08, 2024 Dr. Junito Madrid MD Other Provider Active St art: October 08, 2024 Team Status: Active Member Role/Relationship Status Dates Dr. Yoseph Fall MD Primary Care Provider Active Start: October 09, 2024 Dr. Riley Jeff DO Emergency Provider Active Start: October 09, 2024 Dr. Dionne Porter MD Admit Provider Active St art: October 09, 2024 Dr. Dionne Porter MD Other Provider Active St art: October 09, 2024 Dr. Jan Bolanos MD Other Provider Active Start: October 09, 2024 Dr. Junito Madrid MD Other Provider Active St art: October 09, 2024 Dr. Alessandro Palma MD Attending Provider Active Start: October 09, 2024 Dr. Alessandro Palma MD Other Provider Active Sta rt: October 09, 2024 Dr. Lynne Schafer MD Other Provider Active St art: October 09, 2024 Team Status: Inactive Member Role/Relationship Status Dates Dr. Yoseph Fall MD Primary Care Provider Active Start: November 03, 2024 End: November 03, 2024 Dr. Yoseph Fall MD Referring Provider Active Start: November 03, 2024 End: November 03, 2024 Lindsay Whitehead PA, PA Attending Provider Active Start: November 03, 2024 End: November 03, 2024 Animal Keeper Relationship Specialty Start Date End Date Yoseph aFll MD [address] [place], [place] [address] PCP - General 04/17/09 Nelson Robert, ABRAHAM.GRAPHIC DESIGN SPECIALIST [address] [place], [place] [id number] Junior Accountant Bookkeeper [facility] 04/11/24 Animal Keeper Relationship Specialty Start Date End Date Yoseph Fall MD [address] [place] [address] PCP - General 04/17/09 Nelson Robert, IMPORT EXPORT AGENT.GRAPHIC DESIGN SPECIALIST [address] [place] [address] [facility] 04/11/24 Animal Keeper Relationship Specialty Start Date End Date Yoseph Fall MD [address] [place] [address] PCP - General 04/17/09 Nelson Robert, IMPORT EXPORT AGENT.GRAPHIC DESIGN SPECIALIST [address] [place] [address] [facility] 04/11/24 Animal Keeper Relationship Specialty Start Date End Date Yoseph Fall MD [address] [place] [address] PCP - General 04/17/09 Nelson Robert, IMPORT EXPORT AGENT.GRAPHIC DESIGN SPECIALIST [address] [place] [address] [facility] 04/11/24 Richard Broussard, RN Specialty Manager [facility] 11/24/24 Gregor Fernandez, IMPORT EXPORT AGENT.GRAPHIC DESIGN SPECIALIST [address] [place] [address] Palliative Medicine Home Provider [facility] 11/24/24 Animal Keeper Relationship Specialty Start Date End Date Yoseph Fall MD [address] [place] [address] PCP - General 04/17/09 Nelson Robert IMPORT EXPORT AGENT.GRAPHIC DESIGN SPECIALIST [address] [place] [address] Junior Accountant Bookkeeper [facility] 04/11/24 Richard Broussard, RN Specialty Manager [facility] 11/24/24 Gregor Fernandez, IMPORT EXPORT AGENT.GRAPHIC DESIGN SPECIALIST [address] [place], [place] [id number] Palliative Medicine Home Provider [facility] 11/24/24 Animal Keeper Relationship Specialty Start Date End Date Yoseph Fall MD [address] [place] [address] PCP - General 04/17/09 Nelson Robert, IMPORT EXPORT AGENT.GRAPHIC DESIGN SPECIALIST [address] [place] [address] Junior Accountant Bookkeeper [facility] 04/11/24 Richard Broussard, KAREN Specialty Manager [facility] 11/24/24 Gregor Fernandez, IMPORT EXPORT AGENT.GRAPHIC DESIGN SPECIALIST [address] [place], [place] [id number] Palliative Medicine Home Provider [facility] 11/24/24 Animal Keeper Relationship Specialty Start Date End Date Yoseph Fall MD [address] [place] [address] PCP - General 04/17/09 Nelson Robert IMPORT EXPORT AGENT.GRAPHIC DESIGN SPECIALIST [address] [place] [address] Junior Accountant Bookkeeper [facility] 04/11/24 Richard Broussard, RN Specialty Manager [facility] 11/24/24 Gregor Fernandez APRN.GRAPHIC DESIGN SPECIALIST [address] [place], [place] [phone] Palliative Medicine Home Provider [facility] 11/24/24 Animal Keeper Relationship Specialty Start Date End Date Yoseph Fall MD [address] [place] [address] PCP - General 04/17/09 Nelson Robert IMPORT EXPORT AGENT.GRAPHIC DESIGN SPECIALIST [address] [place] [address] Junior Accountant Bookkeeper [facility] 04/11/24 Richard Broussard RN Specialty Manager [facility] 11/24/24 Gregor Fernandez, IMPORT EXPORT AGENT.GRAPHIC DESIGN SPECIALIST [address] [place], [place] [phone] Palliative Medicine Home Provider [facility] 11/24/24 Animal Keeper Relationship Specialty Start Date End Date Yoseph Fall MD [address] [place] [address] PCP - General 04/17/09 Nelson Robert, IMPORT EXPORT AGENT.GRAPHIC DESIGN SPECIALIST [address] [place] [address] Junior Accountant Bookkeeper Family [facility] 04/11/24 Richard Broussard, KAREN Specialty Manager [facility] 11/24/24 Gregor Fernandez, IMPORT EXPORT AGENT.GRAPHIC DESIGN SPECIALIST [address] [place] [phone] Palliative Medicine Home Provider [facility] 11/24/24 Animal Keeper Relationship Specialty Start Date End Date Yoseph Fall MD [address] [place] [address] PCP - General 04/17/09 Nelson Robert, IMPORT EXPORT AGENT.GRAPHIC DESIGN SPECIALIST [address] [place], [place] [address] Junior Accountant Bookkeeper [facility] 04/11/24 Richard Broussard, RN Specialty Manager [facility] 11/24/24 Gregor Fernandez, ABRAHAM.GRAPHIC DESIGN SPECIALIST [address] [place] [address] Palliative Medicine Home Provider [facility] 11/24/24 Team Status: Active Member Role/Relationship Status Dates Dr. Yoseph Fall MD Primary Care Provider Active Start: December 26, 2024 Dr. Marcel Zarate MD Emergency Provider Active Start: December 26, 2024 Dr. Dionne Porter MD Admit Provider Active St art: December 26, 2024 Dr. Dionne Porter MD Attending Provider Active Start: December 26, 2024 Team Status: Active Member Role/Relationship Status Dates Dr. Yoseph Fall MD Primary Care Provider Active Start: December 26, 2024 Dr. Marcel Zarate MD Emergency Provider Active Start: December 26, 2024 Dr. Dionne Porter MD Admit Provider Active St art: December 26, 2024 Dr. Dionne Porter MD Attending Provider Active Start: December 26, 2024 Dr. Dionne Porter MD Other Provider Active St art: December 26, 2024 Reason for Visit (unrecogniz ed section and [...] OXIMETRY Michelle Mendoza MD [address] [place] [address] Respiratory [place] [address] [place] [address] Referral ID Status Reason Start Date Expiration Date V isits Requested Visits Authorized [id number] Closed Auto-Generate d Referral 01/13/2022 02/12/2023 1 [...] Reason Onset Date Comments Refill Request 08/29/2024 Reason Onset Date Comments Refill Request 09/28/2024 Reason Comments Patient Update Reason Comments Medication Problem Patient Update Reason Comments [facility] patient update Reason Onset Date Comments Transition Of Care 10/10/2024 Reason Onset Date Comments Refill Request 10/11/2024 Reason Comments PT Delay in Care Order Reason Onset Date Comments Refill Request 10/12/2024 Reason Comments Hospital F/U [facility] Reason Comments Orders Occupation Therapy Plan of care Consu lt Physical Therapy Plan of Care Reason Comments Patient Update Reason Comments [facility] med- [id number] Initial Consult Reason Comments Home Care Management Refill Request Reason Comments order question Reason Comments No Show Specialty Diagnoses / Procedures Referred By Contac t Referred To Contact Hospice [facility] Palliative Medicine Diagnoses Stage 3 severe COPD by GOLD classification (HCC) Generalized osteoarthrosis, involving multiple sites Generalized anxiety disorder Chronic low back pain with sciatica, sciatica laterality unspecified, unspecified back pain laterality Procedures CONSULT TO PALLIATIVE CARE OFFICE/OUTPATIENT [facility] 60 MINUTES Yoseph Fall MD [address] [place] [address] Phone: tel: fax: Referral ID Status Reason Start Date Expiration Date V isits Requested Visits Authorized [id number] Closed PCP Requested Referral 10/20/2024 10/20/2025 1 1 Reason Comments Patient Request Patient Update Specialty Diagnoses / Procedures Referred By Contac t Referred To Contact Hospice & Palliative Medicine Diagnoses Stage 3 severe COPD by GOLD classification (HCC) Chronic low back pain with sciatica, sciatica laterality unspecified, unspecified back pain laterality Procedures CONSULT TO PALLIATIVE CARE OFFICE/OUTPATIENT [facility] 60 MINUTES Yoseph Fall MD [address] [place] [address] Phone: tel: fax: Referral ID Status Reason Start Date Expiration Date V isits Requested Visits Authorized [id number] Closed PCP Requested Referral 10/23/2024 10/23/2025 1 1 Reason Comments Symptom Management Reason Onset Date Comments Refill Request 11/23/2024 Reason Comments Care Coordination Reason Comments [facility] Nursing Call Reason Onset Date Comments Refill Request 12/08/2024 Reason Comments Cardiac Valve Problem New Patient [facility] Reason Onset Date Comments Refill Request 12/19/2024 Goals (unrecognized section and content) Goals may be documented in a n alternate sectionGoals may be documented in an alternate section INFORMATION SOURCE (unrecogn ized section and content) DATE CREATED AUTHOR 11/04/2024 [facility] DATE CREATED AUTHOR AUTHOR'S ORGANIZ ATION 12/20/2024 [facility] DATE CREATED AUTHOR AUTHOR'S ORGANIZ ATION 12/24/2024 [facility] FOR RECORDS PERTAINING TO PATIENTS [...] BE BASED ON THE PRIMARY CLINICAL RECORDS. [facility] [employer] [facility]. provides no warranty or guarantee of the accuracy or completeness of information in this document.
--- OUTSIDE RECORDS SUMMARY | 2024-12-26 23:47 | XMS RPT_ITS | CCD ---
Author Organization [facility] Care Team Providers Care Instantizer Operator Name Role Phone Yoseph Fall MD Primary Care Provider Dr. Yoseph Fall Primary Care Provider Dr. Dallas Mena Emergency Provider Dr. José Cunningham Admit Provider Unavailabl e Dr. José Cunningham Other Provider Unavailabl e Dr. Jan Bolanos Attending Provider Dr. Jan Bolanos Other Provider Yoseph Fall MD Primary Care Provider Yoseph Fall MD Primary Care Provider [place] CUSTOMS INVESTIGATOR.RESEARCH ASSISTANT PROFESSOR, Iman Unavailable Jt CUSTOMS INVESTIGATOR.RESEARCH ASSISTANT PROFESSOR, Nelson Unavailable [place] CUSTOMS INVESTIGATOR.RESEARCH ASSISTANT PROFESSOR, Iman Unavailable Unavail able [place] CUSTOMS INVESTIGATOR.RESEARCH ASSISTANT PROFESSOR, Iman Unavailable Dr. Yoseph Fall MD Primary [...] Gilmar OWEN, Dr. Lynne Hooker Other Provider [phone] Luis Miguel OWEN, Dr. Jan Harris Attending [...] Unavailable Richard Broussard RN Unavailable Unavailable Rebecca CUSTOMS INVESTIGATOR.RESEARCH ASSISTANT PROFESSOR, Gregor Unavailable Unavailable Primary Care Provider UnavailZARIA [...] th every six hours as needed HYDROcodone-acetaminophen ([place]) 5-325 MG tablet Take 1 tablet by mouth every 6 hours as needed. Active Comment on above: Take 1 tablet by richard th twice daily as needed for pain for up to 30 days. Take 1 tablet by rcihard th twice daily as needed for pain [...] Do not start before June 15, 2023. [id number] actuat albuterol 0.09 mg/actuat metered dose [...] Start: 07-17-2021 take 1 capsule by mo [facility] once daily Cholecalciferol, Vitamin D3, 50 mcg (2,000 unit) cap Take 1 capsule by mouth once daily. 30 capsule 5 07/17/2021 Active Comment on above: Take 1 capsule by mo [facility] once daily. COMPOUNDED PRESCRIPTION (20 sources) Start: [...] Active Start: 07-17-2021 take 1 tablet by [facility] twice daily as needed for muscle spasms [...] muscle spasm. Disposable Gloves (DISPOSABLE LATEX-FREE GLOVES) [facility] (20 sources) Start: 10-08-2017 Disposable Gloves (DISPOSABLE LATEX-FREE GLOVES) [facility] Indications: Generalized osteoarthrosis, involving multiple sites , Chronic obstructive pulmonary disease, unspecified COPD type ([facility]) , Chronic low back pain with sciatica, [...] Stage 3 severe COPD by GOLD classification ([facility]) Take 1 tablet by mouth two times [...] Start: 01-15-2023 take 1 puff(s) by mo [facility] twice daily fluticasone-salmeterol (ADVAIR DISKUS) 500-50 [...] Discontinued Start: 12-31-2021 take 1 puff(s) by [facility] twice daily fluticasone-salmeterol (ADVAIR DISKUS) 500-50 mcg/dose dsdv Inhale 1 Puff as instructed twice daily. Rinse and gargle mouth with water after use. 3 Each 3 12/31/2021 Active Start: 04-21-2021 take 1 puff(s) by [facility] twice daily fluticasone-salmeterol (ADVAIR DISKUS) 500-50 mcg/dose dsdv Inhale 1 Puff as instructed twice daily. Rinse and gargle mouth with water after use. 3 Each 3 04/21/2021 Active Start: 04-21-2021 take 1 puff(s) by [facility] twice daily fluticasone-salmeterol (ADVAIR DISKUS) [...] een cheek and gum as needed. nystatin [id number] unt/ml oral suspension (20 sources) Polyene Antifungal [...] an empty stomach Take 1 capsule by [facility] once daily. ON AN EMPTY [...] Stage 3 severe COPD by GOLD classification ([facility]) Take 1.5 pills every day or every other day as needed 45 tablet 5 11/13/2024 Active Start: 08-21-2024 End: 11-13-2024 take 1.5 tablets by mouth every other day predniSONE (DELTASONE) 10 mg tablet Indications: Stage 3 severe COPD by GOLD classification ([facility]) Take 1.5 tablets by mouth every other [...] by mouth every other day. [facility] (20 sources) Start: 07-17-2021 P[facility]SE O[facility] Indications: Chronic obstructive pulmonary disease, unspecified COPD type (HCC) , Moderate persistent asthma without complication (HCC) Use as directed to check oxygen saturation level 1 Each 07/17/2021 Active Start: 07-17-2021 P[facility]SE O[facility] Indications: Chronic obstructive pulmonary disease, unspecified COPD type (HCC) , Moderate persistent asthma without complication Use as directed to check oxygen saturation level 1 Each 07/17/2021 Active Start: 07-17-2021 [facility] Indications: Chronic obstructive pulmonary disease, unspecified COPD type (HCC) , Moderate persistent asthma without complication Use as directed to check oxygen saturation level 1 Each 0 07/17/2021 Active Comment on above: Use as directed [facility] level rOPINIRole 0.25 mg oral [...] on above: Take 2 tablets by mo [facility] once daily. tiotropium 0.018 mg inhalation powder [...] 1 capsule as instructed once daily. Tiotropium Leary (Spiriva With Handihaler) 1 PUFF inhaler (6 sources) Start: 3 take 1 puff(s) by inhalation once daily Tiotropium Leary (Spiriva With Handihaler) 1 PUFF inhaler Active 1 NMA INHALATION DAILY April 18, 2013 1:00am wheezing Start: 04-18-2013 take 1 puff(s) by in halation once daily Tiotropium Leary (Spiriva With Handihaler) 1 PUFF inhaler Active 1 NMA INHALATION DAILY April 18, 2013 1:00am Start: 04-18-2013 take 1 puff(s) by in halation once daily Tiotropium Leary (Spiriva With Handihaler) 1 PUFF inhaler Active [...] 0.5 mg/ml oral solution (20 sources) Uncompetitive C-tkclnu-Q-aspartat e Receptor Antagonist, Sigma-1 Agonist, alpha-1 Adrenergic [...] Long-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; Translations: [manager long term care (current) use of 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] 11-23-2024 Episodic Other aftercare (1 source) 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; Translations: [manager long term care (current) use of anticoagulants] 12-26-2024 Episodic Other [...] Auto (Unsp spec) [#/Vol] 1.08 10*3/uL 0.83-4.51 [facility] Absolute neutrophil countOrd ered By: ED PROVIDER on 12-26-2024 Neutrophils (Bld) [#/Vol] 8.0 10*3/uL High 2.0-7.7 [facility] Anion gap in Serum or Plasma Ordered By: Marcel Zarate on 12-26-2024 Anion gap [Moles/Vol] 8 mmol/L 5-15 [facility] Assessment of wrist artery p atency prior to arterial punctureOrdered By: Dionne Porter on 12-26-2024 Arterial patency Wrist artery --pre arterial puncture Positive [facility] Automated lymphocyte count a s percentage of total leukocytesOrdered By: ED PROVIDER on 12-26-2024 Lymphocytes/100 WBC Auto (Unsp spec) 11.3 % Low 19-41 [facility] BUN/creatinine ratioOrdered By: Marcel Zarate on 12-26-2024 Urea nitrogen/Creatinine [Mass ratio] 25.1 mg/mg High 10-20 [facility] Basophil percentageOrdered B y: ED PROVIDER on 12-26-2024 Basophils/100 WBC (Bld) 0.1 % 0-1 [facility] Blood base excess determinat ionOrdered By: Dionne Porter on 12-26-2024 Base excess Calc (BldV) [Moles/Vol] mmol/L High -2-2 [facility] Blood bicarbonate measuremen tOrdered By: Dionne Porter on 12-26-2024 HCO3 (Bld) [Moles/Vol] 55.5 mmol/L High 22-26 [facility] Carbon dioxide, total [Moles /volume] in Central venous bloodOrdered By: Marcel Zarate on 12-26-2024 CO2 [Moles/Vol] 41.6 mmol/L High 21.0-32.0 [facility] Chloride assayOrdered By: Seun Zarate on 12-26-2024 Chloride [Moles/Vol] 88 mmol/L Low 98-108 [facility] Eosinophil percentageOrdered By: ED PROVIDER on 12-26-2024 Eosinophils/100 WBC (Bld) 0.1 % 0-5 [facility] Erythrocyte distribution wid th ratioOrdered By: ED PROVIDER on 12-26-2024 Erythrocyte distribution width (RBC) [Ratio] 14.0 % 11.6-14.6 [facility] Erythrocyte distribution wid th standard deviationOrdered By: ED PROVIDER on 12-26-2024 Erythrocyte distribution width (RBC) [Ratio] 43.0 fl 35.1-43.9 [facility] Glomerular filtration rate ( GFR) estimation/1.73 sq m using serum, plasma, or whole bOrdered By: Marcel Zarate on 12-26-2024 GFR/1.73 sq M.predicted among non-blacks MDRD (S/P/Bld) [Vol rate/Area] 96 mL/min/{1.73_m2} >60 [facility] Comment on above: mL/min/1.73m2 CKD-EP I Creatinine Equation (2020) Hematocrit Auto (Bld) [Volum e fraction]Ordered By: ED PROVIDER on 12-26-2024 Hematocrit (Bld) [Volume fraction] 29.0 % Low 37-47 [facility] Hemoglobin measurementOrdere d By: ED PROVIDER on 12-26-2024 Hemoglobin (Bld) [Mass/Vol] 9.2 g/dL Low 12.0-15.0 [facility] Immature granulocytes/100 WB C Auto (Bld)Ordered By: ED PROVIDER on 12-26-2024 Immature granulocytes/100 WBC (Bld) 0.800 % 0.0-0.9 [facility] Comment on above: IG% - Immature Granu locytes (promyelocytes, myelocytes and metamyelocytes) > 1% indicates that a LEFT SHIFT is Present. MCV (mean corpuscular volume ) determinationOrdered By: ED PROVIDER on 12-26-2024 MCV (RBC) [Entitic vol] 84.5 fL 81-99 [facility] Mean corpuscular hemoglobin (MCH) determinationOrdered By: ED PROVIDER on 12-26-2024 MCH (RBC) [Entitic mass] 26.8 pg Low 27.0-32.0 [facility] Mean corpuscular hemoglobin concentration (MCHC) determinationOrdered By: ED PROVIDER on 12-26-2024 MCHC (RBC) [Mass/Vol] 31.7 g/dL Low 32-36 [facility] Mean platelet volume determi nationOrdered By: ED PROVIDER on 12-26-2024 Platelet mean volume (Bld) [Entitic vol] 9.3 fL 6.2-12.0 [facility] Measurement, pHOrdered By: A utumn White on 12-26-2024 pH (Unsp spec) 7.44 [pH] 7.35-7.45 [facility] Monocyte percentageOrdered B y: ED PROVIDER on 12-26-2024 Monocytes/100 WBC (Bld) 4.5 % 0-10 [facility] Neutrophil percentageOrdered By: ED PROVIDER on 12-26-2024 Neutrophils/100 WBC (Bld) 83.2 % High 47-70 [facility] No Panel InformationOrdered By: Dionne Porter on 12-26-2024 Bld Gas Crit Called To/Read Back By Yes [facility] Blood Gas Notified Time 20:42:58 [facility] Blood Gas Notified Whom [facility] Blood Gas Sample Site L Radial [facility] Blood Gas Specimen Type ART [facility] Blood Gas Vent Mode Not entered [facility] Oxygen Delivery Device Cannula [facility] Nucleated red blood cell per centageOrdered By: ED PROVIDER on 12-26-2024 Nucleated RBC/100 WBC (Bld) [Ratio] 0 % 0-5 [facility] Platelet countOrdered By: ED PROVIDER on 12-26-2024 Platelets (Bld) [#/Vol] 219 10*3/uL 150-450 [facility] Potassium measurement (mass/ volume)Ordered By: Marcel Zarate on 12-26-2024 Potassium (Unsp spec) [Mass/Vol] 4.0 mmol/L 3.3-5.1 [facility] RBC Auto (Bld) [#/Vol]Ordere d By: ED PROVIDER on 12-26-2024 RBC (Bld) [#/Vol] 3.43 10*6/uL Low 4.2-5.4 [facility] Serum creatinine measurement (mass/volume)Ordered By: Marcel Zarate on 12-26-2024 Creatinine [Mass/Vol] 0.64 mg/dL Low 0.70-1.20 [facility] Serum glucose measurement (m ass/volume)Ordered By: Marcel Zarate on 12-26-2024 Glucose [Mass/Vol] 112 mg/dL High 70-99 [facility] Serum or plasma calcium kadi urement (mass/volume)Ordered By: Marcel Zarate on 12-26-2024 Calcium [Mass/Vol] 8.9 mg/dL 7.6-11.0 [facility] Serum or plasma urea nitroge n measurement (mass/volume)Ordered By: Marcel Zarate on 12-26-2024 Urea nitrogen [Mass/Vol] 16 mg/dL 4-19 [facility] Sodium levelOrdered By: Haider Zarate on 12-26-2024 Sodium [Moles/Vol] 137 mmol/L 133-145 [facility] Troponin T.cardiac [Mass/vol ume] in Serum or Plasma by High sensitivity methodOrdered By: Marcel Zarate on 12-26-2024 Troponin T.cardiac High sensitivity method [Mass/Vol] 25 ng/L High <14 [facility] Troponin T.cardiac High sensitivity method [Mass/Vol] 25 ng/L High <14 [facility] Comment on above: Delta: 23 [place] [id number] White blood cell (WBC) count Ordered By: ED PROVIDER on 12-26-2024 WBC (Bld) [#/Vol] 9.6 10*3/uL 4.4-11.0 [facility] CNPNon 12-22-2024 CNPN Telephone (FAMPWS) DENIA GONZALEZ ([id number]) 1955 F Date Time Provider Department 12/22/[facility] During your visit today, we recorded the [...] Date Reviewed: 11/22/2024 Reviewed by: Gregor Fernandez APRN.RESEARCH ASSISTANT PROFESSOR - Fully Assessed Reason for Visit: Patient [...] directed. Dx: COPD J44.9 - Nebulizer Accessories [facility] Mask and supplies as needed - PULSE OXIMETER [facility] Use as directed to check oxygen saturation level - ammonium lactate (AMLACTIN) 12 % lotion Apply 1 application to affected area as needed for Dry Skin. - losartan (COZAAR) 50 mg tablet Take 0.5 tablets by mouth once daily. - OXYGEN, HOME THERAPY, 2.5 L/min by Nasal Cannula route continuous. Use as directred - Disposable Gloves (DISPOSABLE LATEX-FREE GLOVES) [facility] 1 Box once every month. ICD 10: [...] NOS [C34. (more content not included)... Normal [facility] CBC W Auto Differential pane l (Bld)on 12-15-2024 Basophils (Bld) [#/Vol] 0 10*3/uL 0.0 - 0.2 10*3/uL [employer] Basophils/100 WBC (Bld) 0.1 % 0.0 - 2.0 % [employer] Eosinophils (Bld) [#/Vol] 0 10*3/uL 0.0 - 0.5 10*3/uL [employer] Eosinophils/100 WBC (Bld) 0.1 % 0.0 - 6.0 % [employer] Erythrocyte distribution width (RBC) [Ratio] 13.6 % 11.5 - 15.0 % [employer] Hematocrit (Bld) [Volume fraction] 33.3 % Low 35.0 - 47.0 % [employer] Hemoglobin (Bld) [Mass/Vol] 10.5 g/dL Low 11.7 - 16.0 g/dL [employer] Immature granulocytes (Bld) [#/Vol] 0.1 10*3/uL High NINF - 0.1 10*3/uL [employer] Immature granulocytes/100 WBC (Bld) 0.8 % 0.0 - 2.0 % [employer] Interpretation and review of laboratory results Abnormal [employer] Lymphocytes (Bld) [#/Vol] 0.8 10*3/uL Low 1.0 - 4.3 10*3/uL [employer] Lymphocytes/100 WBC (Bld) 9.8 % Low 15.0 - 45.0 % [employer] MCH (RBC) [Entitic mass] 26.3 pg 26. 0 - 34.0 pg [facility] MCHC (RBC) [Mass/Vol] 31.5 % 30.5 - 36.0 % [facility] MCV (RBC) [Entitic vol] 83.5 fL 77.0 - 99.0 fL [facility] Monocytes (Bld) [#/Vol] 0.2 10*3/uL 0.0 - 0.9 10*3/uL [facility] Monocytes/100 WBC (Bld) 1.9 % Low 5.0 - 13.0 % [facility] Neutrophils (Bld) [#/Vol] 7.3 10*3/uL 1.8 - 7.5 10*3/uL [facility] Neutrophils/100 WBC (Bld) 87.3 % High 38.0 - 82.0 % [facility] Nucleated RBC/100 WBC (Bld) [Ratio] 0 % [facility] Platelet mean volume (Bld) [Entitic vol] 10.2 fL 9.0 - 12.7 fL [facility] Platelets (Bld) [#/Vol] 239 10*3/uL 140 - 440 10*3/uL [facility] RBC (Bld) [#/Vol] 3.99 10*6/uL 3.80 - 5.2 0 10*6/uL [facility] WBC (Bld) [#/Vol] 8.3 10*3/uL 3.6 - 10.7 10*3/uL [facility] CBC WITH AUTO DIFFERENTIALon 12-15-2024 Basophils (Bld) [#/Vol] 0.0 10*3/uL Normal 0.0-0.2 [facility] Comment on above: Performed By: #### L [id number] #### Railroad Worker: EDDA MCKINLEY ([id number]) [facility] [address] [place] [address] Basophils/100 WBC (Bld) 0.1 % Normal 0.0-2.0 [facility] Comment on above: Performed By: #### L [id number] #### Railroad Worker: EDDA MCKINLEY ([id number]) [facility] [address] [place] [address] Eosinophils (Bld) [#/Vol] 0.0 10*3/uL Normal 0.0-0.5 [facility] Comment on above: Performed By: #### L [id number] #### Railroad Worker: EDDA MCKINLEY ([id number]) [facility]) [address] [place] [address] Eosinophils/100 WBC (Bld) 0.1 % Normal 0.0-6.0 [facility] Comment on above: Performed By: #### L [id number] #### Railroad Worker: EDDA MCKINLEY ([id number]) [facility]) [address] [place] [address] Erythrocyte distribution width (RBC) [Ratio] 13.6 % Normal 11.5-15.0 [facility] Comment on above: Performed By: #### L [id number] #### Railroad Worker: EDDA MCKINLEY ([id number]) [facility]) [address] [place] [address] Hematocrit (Bld) [Volume fraction] 33.3 % Low 35.0-47.0 [facility] Comment on above: Performed By: #### L [id number] #### Railroad Worker: EDDA MCKINLEY ([id number]) [facility]) [address] [place] [address] Hemoglobin (Bld) [Mass/Vol] 10.5 g/dL Low 11.7-16.0 [facility] Comment on above: Performed By: #### L [id number] #### Railroad Worker: EDDA MCKINLEY ([id number]) [facility]) [address] [place] [address] IMMATURE GRANS % 0.8 % Normal 0.0-2.0 [facility] Comment on above: Performed By: #### L [id number] #### Railroad Worker: EDDA MCKINLEY ([id number]) [address] IMMATURE GRANS ABSOLUTE 0.1 10*3/uL High <0.1 [facility] Comment on above: Performed By: #### L [id number] #### Railroad Worker: EDDA MCKINLEY ([id number]) [facility]) [address] [place] [address] Lymphocytes (Bld) [#/Vol] 0.8 10*3/uL Low 1.0-4.3 [facility] Comment on above: Performed By: #### L [id number] #### Railroad Worker: EDDA MCKINLEY ([id number]) [facility]) [address] [place] [address] Lymphocytes/100 WBC (Bld) 9.8 % Low 15.0-45.0 [facility] Comment on above: Performed By: #### L [id number] #### Railroad Worker: EDDA MCKINLEY ([id number]) [facility]) [address] [place] [address] MCH (RBC) [Entitic mass] 26.3 pg Normal 26.0-34.0 [facility] Comment on above: Performed By: #### L [id number] #### Railroad Worker: EDDA MCKINLEY ([id number]) [facility]) [address] [place] [address] MCHC 31.5 % Normal 30.5-36.0 [facility] Comment on above: Performed By: #### L [id number] #### Railroad Worker: EDDA MCKINLEY ([id number]) [facility]) [address] [place] [address] MCV (RBC) [Entitic vol] 83.5 fL Normal 77.0-99.0 [facility] Comment on above: Performed By: #### L [id number] #### Railroad Worker: EDDA MCKINLEY ([id number]) [facility]) [address] [place] [address] Monocytes (Bld) [#/Vol] 0.2 10*3/uL Normal 0.0-0.9 [facility] Comment on above: Performed By: #### L [id number] #### Railroad Worker: EDDA MCKINLEY ([id number]) [facility] [address] [place] [address] Monocytes/100 WBC (Bld) 1.9 % Low 5.0-13.0 [facility] Comment on above: Performed By: #### L [id number] #### Railroad Worker: EDDA MCKINLEY ([id number]) [facility] [address] [place] [address] NEUTROPHILS ABSOLUTE 7.3 10*3/uL Normal 1.8-7.5 [facility] Comment on above: Performed By: #### L [id number] #### Railroad Worker: EDDA MCKINLEY ([id number]) [facility] ([facility]) [address] [place] [address] Neutrophils/100 WBC (Bld) 87.3 % High 38.0-82.0 [facility] Comment on above: Performed By: #### L [id number] #### Railroad Worker: EDDA MCKINLEY ([id number]) [facility] [address] [place] [address] NRBC 0.0 /100 WBCs Normal 0.0-2.0 [facility] Comment on above: Performed By: #### L [id number] #### Railroad Worker: EDDA MCKINLEY ([id number]) [facility]) [address] [place] [address] Platelet mean volume (Bld) [Entitic vol] 10.2 fL Normal 9.0-12.7 [facility] Comment on above: Performed By: #### L [id number] #### Railroad Worker: EDDA MCKINLEY ([id number]) [facility] [address] [place] [address] [place] Platelets (Bld) [#/Vol] 239 10*3/uL Normal 140-440 [facility] Comment on above: Performed By: #### L [id number] #### Railroad Worker: EDDA MCKINLEY ([id number]) [facility]) [address] [place] [address] [place] RBC (Bld) [#/Vol] 3.99 10*6/uL Normal 3.80-5.20 [facility] Comment on above: Performed By: #### L [id number] #### Railroad Worker: EDDA MCKINLEY ([id number]) [facility]) [address] [place] [address] WBC (Bld) [#/Vol] 8.3 10*3/uL Normal 3.6-10.7 [facility] Comment on above: Performed By: #### L [id number] #### Railroad Worker: EDDA MCKINLEY ([id number]) [facility]) [address] [place] [address] COMPREHENSIVE METABOLIC PANE Eddie 12-15-2024 Albumin [Mass/Vol] 3.7 g/dL Normal 3.4-4.8 [facility] Comment on above: Performed By: #### L [id number] #### Railroad Worker: EDDA MCKINLEY ([id number]) [facility]) [address] [place] [address] ALP [Catalytic activity/Vol] 49 U/L Normal 40-150 [facility] Comment on above: Performed By: #### L [id number] #### Railroad Worker: EDDA MCKINLEY ([id number]) [facility]) [address] [place] [address] ALT [Catalytic activity/Vol] 16 U/L Normal <30 [facility] Comment on above: Performed By: #### L [id number] #### Railroad Worker: EDDA MCKINLEY ([id number]) [facility]) [address] [place] [address] Anion gap [Moles/Vol] 7 mmol/L Normal 3-13 [facility] Comment on above: Performed By: #### L [id number] #### Railroad Worker: EDDA MCKINLEY ([id number]) [facility]) [address] [place] [address] AST [Catalytic activity/Vol] 18 U/L Normal <34 [facility] Comment on above: Performed By: #### L [id number] #### Railroad Worker: EDDA [id number]) [facility] ([facility]) [address] [place] [address] Bilirubin [Mass/Vol] 0.4 mg/dL Normal <1.2 [facility] Comment on above: Performed By: #### L [id number] #### Railroad Worker: EDDA MCKINLEY ([id number]) [facility] ([facility]) [address] [place] [address] Calcium [Mass/Vol] 8.6 mg/dL Low 8.8-10.0 [facility] Comment on above: Performed By: #### L [id number] #### Railroad Worker: EDDA MCKINLEY ([id number]) [facility] [address] [place] [address] Chloride [Moles/Vol] 88 mmol/L Low 98-107 [facility] Comment on above: Performed By: #### L [id number] #### Railroad Worker: EDDA MCKINLEY ([id number]) [facility] ([facility]) [address] [place] [address] CO2 [Moles/Vol] 40 mmol/L High 23-31 [facility] Comment on above: Performed By: #### L AB17 #### Railroad Worker: EDDA MCKINLEY ([id number]) [facility] ([facility] [address] [place] [address] Creatinine [Mass/Vol] 0.72 mg/dL Normal 0.57-1.11 [facility] Comment on above: Performed By: #### L AB17 #### Railroad Worker: EDDA MCKINLEY ([id number]) [facility] ([facility]) [address] [place] [address] GLOMERULAR FILTRATION RATE ML/MIN/1.73 SQ M.PREDICTED >90.0 Normal >60.0 [facility] Comment on above: Result Comment: Calc ulation based on the Chronic Kidney Disease Epidemiology Collaboration (CKD-EPI) equation refit without adjustment for race Performed By: #### L AB17 #### Railroad Worker: EDDA MCKINLEY ([id number]) [facility] ([facility]) [address] [place] [address] Glucose [Mass/Vol] 114 mg/dL Normal 82-115 [facility] Comment on above: Performed By: #### L AB17 #### Railroad Worker: EDDA MCKINLEY ([id number]) [facility] ([facility]) [address] [place] [address] Potassium [Moles/Vol] 4.3 mmol/L Normal 3.5-5.1 [facility] Comment on above: Result Comment: [facility] potassium values may be up to 0.5 mmol/L lower than serum values. Performed By: #### L AB17 #### Railroad Worker: EDDA MCKINLEY ([id number]) [facility] ([facility]) [address] [place] [address] Protein [Mass/Vol] 6.5 g/dL Normal 6.4-8.3 [facility] Comment on above: Performed By: #### L AB17 #### Railroad Worker: EDDA MCKINLEY ([id number]) [facility] ([facility]) [address] [place] [address] Sodium [Moles/Vol] 135 mmol/L Low 136-145 [facility] Comment on above: Performed By: #### L AB17 #### Railroad Worker: EDDA MCKINLEY ([id number]) [facility]) [address] [place] [address] Urea nitrogen [Mass/Vol] 19 mg/dL Normal 9-23 [facility] Comment on above: Performed By: #### L AB17 #### Railroad Worker: EDDA MCKINLEY ([id number]) [facility] ([facility]) [address] [place] [address] Comprehensive metabolic 1998 panelon 12-15-2024 Albumin [Mass/Vol] 3.7 g/dL 3.4 - 4.8 g/dL [facility] ALP [Catalytic activity/Vol] 49 U/L 40 - 150 U/L [facility] ALT [Catalytic activity/Vol] 16 U/L NINF - 30 U/L [facility] Anion gap [Moles/Vol] 7 mmol/L 3 - 13 mmol/L [facility] AST [Catalytic activity/Vol] 18 U/L NINF - 34 U/L [facility] Bilirubin [Mass/Vol] 0.4 mg/dL NINF - 1.2 mg/dL [facility] Calcium [Mass/Vol] 8.6 mg/dL Low 8.8 - 10. 0 mg/dL [facility] Chloride [Moles/Vol] 88 mmol/L Low 98 - 10 7 mmol/L [facility] CO2 [Moles/Vol] 40 mmol/L High 23 - 31 mmol/L [facility] Creatinine [Mass/Vol] 0.72 mg/dL 0.57 - 1.11 mg/dL [facility] GFR/1.73 sq M.predicted (S/P/Bld) [Vol rate/Area] - PINF [facility] Comment on above: Calculation based on the Chronic Kidney Disease Epidemiology Collaboration (CKD-EPI) equation refit without adjustment for race Glucose [Mass/Vol] 114 mg/dL 82 - 115 mg/dL [facility] Interpretation and review of laboratory results Abnormal [facility] Potassium [Moles/Vol] 4.3 mmol/L 3.5 - 5.1 mmol/L [facility] Comment on above: Plasma potassium abdulkadir ues may be up to 0.5 mmol/L lower than serum values. Protein [Mass/Vol] 6.5 g/dL 6.4 - 8.3 g/dL [facility] Sodium [Moles/Vol] 135 mmol/L Low 136 - 145 mmol/L [facility] Urea nitrogen [Mass/Vol] 19 mg/dL 9 - 23 mg/d L [facility] Office Visiton 12-15-2024 Follow-up visit [id number] Denia Gonzalez 1955 Date Provider Department Center 12/15/2024 [id number] CORBETT [facility] [address] Family History Problem Relation Age of Onset Hypertension Mother Throat cancer Mother Hypertension Father Stomach cancer Father Family Status - Relation Status Age at Mother Father Level of Service:28649 [place] OFFICE/OP CONSLTJ NEW/EST PT HIGH MDM 55 MINUTES Reason for Visit and Comments: Cardiac Valve Problem [1334] New Patient [542] - Heart Valve Clinic Normal [facility] Follow-up visit [id number] Denia Gonzalez 1955 F Date Provider Department Center 12/15/2024 [id number], ZARIA [facility] [address] Family History Problem Relation Age of Onset Hypertension Mother Throat cancer Mother Hypertension Father Stomach cancer Father Family Status - Relation Status Age at Mother Father Level of Service:12155 [place] OFFICE/OUTPATIENT NEW HIGH MDM 60 MINUTES Reason for Visit and Comments: Cardiac Valve Problem [1334] New Patient [542] - Heart Valve Clinic Normal [facility] Progress Noteon 12-15-2024 Progress Note [facility]: Cardiothoracic Surgery Multidisciplinary Heart Valve Clinic Date: 12/14/24 Patient:Denia Gonzalez 1955 69 y.o. female [id number] Subjective: HPI: Denia Gonzalez 69 y.o. referred by SADIQ Aguilar is being evaluated for aortic valve stenosis. Echocardiogram completed on 10/02/24 showed severe aortic valve stenosis with peak/mean gradients 75/50 mm Hg, SASHA 0.85 cm^2. Per note, patient with past medical history significant for COPD, chronic hypoxic respiratory failure, on home O2, HTN, smoker. Patient was admitted to [facility] 09/29/24 for respiratory failure and newly diagnosed [...] a past medical history of A-fib (CMS/HCC) ([facility]), Anxiety, Aortic stenosis, Asthma, Chronic respiratory failure ([facility]), COPD (chronic obstructive pulmonary disease) ([facility]), Depressed, History of ETOH abuse, HTN (hypertension), [...] for mu (more content not included)... Normal [facility] Progress Note [facility] [place] [address] [facility] [id number] Dept: [phone] Dept Visit type: New : 1955 Reason for Visit: New patient, Heart Valve Clinic Assessment and Plan 1. Preop cardiovascular exam - CBC auto differential - Comprehensive metabolic panel - Case Request Exceptional Children Teacher Assistant: Left and right heart cath / coronary [...] (degenerative, rheumatic, (more content not included)... Normal [facility] Progress Noteon 12-14-2024 Progress Note Denia Gonzalez 69 y.o. referred by SADIQ gAuilar is being evaluated for aortic valve stenosis. Echocardiogram completed on 10/02/24 showed severe aortic valve stenosis with peak/mean gradients 75/50 mm Hg, SASHA 0.85 cm^2. Per note, patient with past medical history significant for COPD, chronic hypoxic respiratory failure, on home O2, HTN, smoker. Patient was admitted to [facility] 09/29/24 for respiratory failure and newly diagnosed [...] HTN (hypertension) Migraines RLS (restless legs syndrome) [facility] 12-08-2024 CNPN Telephone (INTMWS) DENIA GONZALEZ ([id number]) 1955 F Date Time Provider Department 12/08/24 YOSEPH FALL INTMWS During your visit today, we recorded the following information about you: Ban Villafana LPN 12/08/2024 10:31 AM Signed Electronic PA rec'd and completed for cyclobenzaprine (FLEXERIL) 10 mg tablet Ban Villafana LPN 12/08/2024 10:43 AM Signed prior authorization approved Payer: [employer] [phone] Note from payer: CaseId:[id number];Sta tus:Approved;Review Type:Prior Auth;Coverage Start Date:11/08/2024;[place] rage End Date:12/08/2025; Approval Details Authorized from [...] to its destination. To be filled at: [facility] [address] [place] [address] [address] - [phone] Pharmacy notified. Allergies As of Date: 12/08/2024 (No Known Allergies) Date Reviewed: 11/22/2024 Reviewed by: Gregor Fernandez APRN.RESEARCH ASSISTANT PROFESSOR - Fully Assessed Reason for Visit: Insurance Authorization [2043] Prescriptions as of 12/08/2024 - cyclobenzaprine (FLEXERIL) [...] directed. Dx: COPD J44.9 - Nebulizer Accessories [facility] Mask and supplies as needed - PULSE OXIMETER [facility] Use as directed to check oxygen saturation level - ammonium lactate (AMLACTIN) 12 % lotion Apply 1 application to affected area as needed for Dry Skin. - losartan (COZAAR) 50 mg tablet Take 0.5 tablets by mouth once daily. - OXYGEN, HOME THERAPY, 2.5 L/min by Nasal Cannula route continuous. Use as directred - Disposable Gloves (DISPOSABLE LATEX-FREE GLOVES) [facility] 1 Box once every month. ICD 10: [...] Resolved Other (more content not included)... Normal [facility] 36on 11-28-2024 36 Chart made and ACID CONDITIONER packet mailed Normal [facility] [place] 11-27-2024 CNPN Telephone (FAMPWS) DENIA GONZALEZ ([id number]) 1955 F Date Time Provider Department 11/27/24 [facility] During your visit today, we recorded the following information about you: Padmini Abbott RN 11/27/2024 2:16 PM Signed Rafa with [facility] calling and states he plans to add 1 more visit to pt's plan of care, to discharge patient. No call back needed if provider agreeable with this. KAREN Robledo Mark D, MD 11/27/2024 3:12 PM Signed Noted and agree Yoseph Fall MD Allergies As of Date: 11/27/2024 (No Known Allergies) Date Reviewed: 11/22/2024 Reviewed by: Gregor Fernandez APRN.RESEARCH ASSISTANT PROFESSOR - Fully Assessed Reason for Visit: [facility] Call [Other] Prescriptions as of 11/27/2024 [...] directed. Dx: COPD J44.9 - Nebulizer Accessories [facility] Mask and supplies as needed - PULSE OXIMETER [facility] Use as directed to check oxygen saturation level - ammonium lactate (AMLACTIN) 12 % lotion Apply 1 application to affected area as needed for Dry Skin. - losartan (COZAAR) 50 mg tablet Take 0.5 tablets by mouth once daily. - OXYGEN, HOME THERAPY, 2.5 L/min by Nasal Cannula route continuous. Use as directred - Disposable Gloves (DISPOSABLE LATEX-FREE GLOVES) [facility] 1 Box once every month. ICD 10: [...] 06/27/2016 Constipatio (more content not included)... [facility]) DENIA GONZALEZ ([id number]) 1955 F Date Time Provider Department 11/24/24 CONNOR SHAW [facility] During your visit today, we recorded the following information about you: Connor Shaw LISW 11/24/2024 11:11 AM Signed November 24, 2024 Opened by mistake, please disregard. ANAM Sagastume [facility] Social Work [phone] Allergies As of Date: 11/24/2024 (No Known Allergies) Date Reviewed: 11/22/2024 Reviewed by: Gregor Fernandez APRN.RESEARCH ASSISTANT PROFESSOR - Fully Assessed Prescriptions as of 11/24/2024 [...] directed. Dx: COPD J44.9 - Nebulizer [facility]ories [facility] Mask and supplies as needed - PULSE OXIMETER [facility] Use as directed to check oxygen saturation level - ammonium lactate (AMLACTIN) 12 % lotion Apply 1 application to affected area as needed for Dry Skin. - losartan (COZAAR) 50 mg tablet Take 0.5 tablets by mouth once daily. - OXYGEN, HOME THERAPY, 2.5 L/min by Nasal Cannula route continuous. Use as directred - Disposable Gloves (DISPOSABLE LATEX-FREE GLOVES) [facility] 1 Box once every month. ICD 10: [...] MRSA bacteremia (more content not included)... [facility] MONICODENIA Gisell ([id number]) 1955 F Date Time Provider Department 11/24/24 RICHARD BROUSSARD [facility] During your visit today, we recorded the following information about you: Richard Broussard RN 11/24/2024 3:36 PM Signed Palliative Medicine at Home Care Coordination New Patient Note My chart note sent. Nurse introduced self and role of Bee Worker in Palliative Medicine. Reviewed contact sheet information and on-call process. Nurse educated patient on medication refill process. Nurse encouraged patient to call with any questions/concerns/s ymptom related issues. Richard Broussard RNCC Airborne And Air Delivery Specialist Allergies As of Date: 11/24/2024 (No Known Allergies) Date Reviewed: 11/22/2024 Reviewed by: Gregor Fernandez APRN.RESEARCH ASSISTANT PROFESSOR - Fully Assessed Reason for Visit: Care [...] directed. Dx: COPD J44.9 - Nebulizer Accessories [facility] Mask and supplies as needed - PULSE OXIMETER [facility] Use as directed to check oxygen saturation level - ammonium lactate (AMLACTIN) 12 % lotion Apply 1 application to affected area as needed for Dry Skin. - losartan (COZAAR) 50 mg tablet Take 0.5 tablets by mouth once daily. - OXYGEN, HOME THERAPY, 2.5 L/min by Nasal Cannula route continuous. Use as directred - Disposable Gloves (DISPOSABLE LATEX-FREE GLOVES) [facility] 1 Box once every month. ICD 10: [...] 03/22/2007 B (more content not included)... [facility] Telephone ([facility]) DENIA GONZALEZ ([id number]) 1955 F Date Time Provider Department 11/23/24 RICHARD BROUSSARD [facility] During your visit today, we recorded the [...] machine/device. Thank you, Richard Broussard, RNCC, PN Airborne And Air Delivery Specialist Allergies As of Date: 11/23/2024 (No Known Allergies) Date Reviewed: 11/22/2024 Reviewed by: Gregor Fernandez APRN.RESEARCH ASSISTANT PROFESSOR - Fully Assessed Reason for Visit: Portable O2 device [Other] Care Coordination [1907] Prescriptions as of 11/30/2024 - doxycycline (VIBRA-TABS) [...] directed. Dx: COPD J44.9 - Nebulizer Accessories [facility] Mask and supplies as needed - PULSE OXIMETER [facility] Use as directed to check oxygen saturation level - ammonium lactate (AMLACTIN) 12 % lotion Apply 1 application to affected area as needed for Dry Skin. - losartan (COZAAR) 50 mg tablet Take 0.5 tablets by mouth once daily. - OXYGEN, HOME THERAPY, 2.5 L/min by Nasal Cannula route continuous. Use as directred - Disposable Gloves (DISPOSABLE LATEX-FREE GLOVES) [facility] 1 Box once every month. ICD 10: [...] 04/13/2005 03/0 (more content not included)... Normal [facility] 36on 11-22-2024 36 VC appt made I need to make chart and mail ACID CONDITIONER packet. Working on getting records scanned in. [facility] 11-20-2024 CNPN Telephone (FAMPWS) DENIA GONZALEZ ([id number]) 1955 F Date Time Provider Department 11/20/24 YOSPEH FALL [facility] During your visit today, we recorded the following information about you: Sukhi Marrero, KAREN 11/20/2024 3:19 PM Signed Rafa RN with [facility] calls to let provider know that he is going to see patient one time next week prior to discharge from their services. Rafa reports his goals have been met for nursing but patient continues to report yellow/green/brown sputum. Rafa reports bilateral lung sounds are diminished [...] Dr. Fall for when returns or if ACID CONDITIONER would review. KAREN Barney Mark D, MD 11/23/2024 2:33 PM Signed Does she feel that she still needs an antibiotic? MD Zaki Chopra Kathryn, MA 11/23/2024 2:51 PM Signed Pt states she still feels like she needs an antibiotic, unable to take Levaquin due to medication interaction. [facility] [place]. JOS Sandy Mark D, MD 11/24/2024 10:30 AM Signed OK for doxycycline as ordered Yoseph Fall MD Allergies As of Date: 11/20/2024 (No Known Allergies) Date Reviewed: 11/20/2024 Reviewed by: Gregor Fernandez APRN.RESEARCH ASSISTANT PROFESSOR - Fully Assessed Reason for Visit: Patient Update [1234] Visit Diagnosis:Stage 3 severe COPD by GOLD classification ([facility]) [J44.9] Order(s):doxycycline (VIBRA-TABS) 100 mg tabletTake 1 [...] directed. Dx: COPD J44.9 - Nebulizer Accessories [facility] Mask and supplies as needed - PULSE OXIMETER [facility] Use as directed to check oxygen saturation level - ammonium lactate (AMLACTIN) 12 % lotion Apply 1 application to affected area as needed for Dry Skin. - losartan (COZAAR) 50 mg tablet Take 0.5 tablets by mouth once daily. - OXYGEN, HOME THERAPY, 2.5 L/min by Nasal Cannula route c (more content not included)... Normal [facility] 11-10-2024 CNPN Telephone (FAMPWS) DENIA GONZALEZ ([id number]) 1955 F Date Time Provider Department 11/10/24 [facility] FALL [facility] During your visit today, we recorded [...] RN 11/13/2024 2:10 PM Signed Brenda- nurse- [facility]- phoned to check on pcp reply to message below. Brenda reports when pt was discharged from [facility] she took the prednisone dose prescribed by [facility], and therefor ran out early. Advised message [...] Fully Assessed Reason for Visit: Patient Request [5260] Patient Update [4254] Visit Diagnosis:Stage 3 severe COPD by GOLD [...] directed. Dx: COPD J44.9 - Nebulizer Accessories [facility] Mask and supplies as needed - PULSE OXIMETER [facility] Use as directed to check oxygen saturation level - ammonium lactate (AMLACTIN) 12 % lotion Apply 1 application to affected area as needed for Dry Skin. - losartan (COZAAR) 50 mg tablet Take 0.5 tablets by mouth once daily. - OXYGEN, HOME THERAPY, 2.5 L/min by Nasal Cannula route continuo (more content not included)... Normal [facility] Cardiology Visit Reporton Cardiology Visit Report [facility] [address] [place] [address] OFFICE VISIT Date of Service: 11/03/24 MR#: [id number] Acct: [id number] Name: DENIA GONZALEZ Rep #: [id number] : 1955 Provider: SADIQ Campoverde Age/Sex: 69/F Location: [facility] Status: Signed HPI HPI History of Present Illness Details: Denia Gonzalez is a 69-year-old female that was admitted to [facility] on September 29, 2024 and discharged on [...] Pulse Source Monitor Intake Visit Reasons: S/P [facility] 10/09 New AFIB/Severe Paper Machine Tender Required: No Accompanied by: Friend Is patient in pain?: No Allergies No Known Allergies Allergy (Verified 11/03/24 13:07) Have you fallen in the past year?: Yes (x 1. Legs gave out going up stairs.) Nurse's Note: Forgot medication list and unable to remember medications. Unable to reconcile medications. [facility] Medical History (Updated 11/03/24 @ 13:37 by [...] regular rate (more content not included)... Normal [facility] 10-24-2024 [facility] Telephone (FAMPWS) DENIA GONZALEZ ([id number]) 1955 F Date Time Provider Department 10/24/24 [facility] During your visit today, we recorded the [...] swelling. Please call patient back with reply. [phone] KAREN Robledo Mark D, MD 10/24/2024 4:55 PM Signed OK for another 7 days of Levaquin MD Annmarie Chopra Amanda, KAREN 10/24/2024 5:00 PM Signed Pt called and is notified of providers message and instructions. Pt voices understanding. KAREN Merlos Michelle, RN 10/24/2024 5:30 PM Signed Rafa with [facility] is calling due to pharmacy unable to fill levaquin due to level 1 severe reaction with the multaq patient takes. When this happened when patient was d/c from [facility] the antibitoc was change to cefdinir 300mg. [...] Fully Assessed Reason for Visit: Patient Request [2696] Order(s):levoFLOXaci n (LEVAQUIN) 500 mg tabletTake 1 [...] directed. Dx: COPD J44.9 - Nebulizer Accessories [facility] Mask and supplies as needed - PULSE OXIMETER [facility] Use as directed to check oxygen saturation level - ammonium lactate (AMLACTI (more content not included)... [facility] DENIA GONZALE[facility] ([id number]) 1955 F Date Time Provider Department 10/24/24 YOSEPH FALL FAMPWS During your visit today, we recorded the following information about you: Jennifer Hennessy LPN 10/24/2024 4:29 PM Signed Ubaldo with [facility] calls in regard [...] Robin, KAREN 10/25/2024 1:21 PM Signed Rafa [facility] reports patient asked him to call [...] directed. Dx: COPD J44.9 - Nebulizer Accessories [facility] Mask and supplies as needed - PULSE OXIMETER [facility] Use as directed to check oxygen saturation level - ammonium lactate (AMLACTIN) 12 % lotion Apply 1 application to affected area as needed for Dry Skin. - losartan (COZAAR) 50 mg tablet Take 0.5 tablets by mouth once daily. - OXYGEN, HOME THERAPY, 2.5 L/min by Nasal Cannula route continuous. Use as directred - Disposable Gloves (DISPOSABLE LATEX-FREE GLOVES) [facility] 1 Box once every month. ICD 10: [...] 10/24/2024 Noted (more content not included)... [facility] ([id number]) 1955 F Date Time Provider Department 10/24/24 [facility] During your visit today, we recorded the following information about you: Richard Broussard RN 10/24/2024 2:53 PM Signed Palliative Medicine Referral Assessment Referral Accepted: Yes, Location: Pall Med at Home. Patient current location: Home: Timeframe for schedulin-2 weeks Pall Med appropriate diagnosis: Diagnosis J44.9 (ICD-10-CM) - Stage 3 severe COPD by GOLD classification ([facility]) M54.40,G89.29 (ICD-10-CM) - Chronic low back pain with sciatica, sciatica laterality unspecified, unspecified back pain laterality Established with Inpatient Pall Med team: no Reason for consult: introduction to services, goals of care, fatigue, dyspnea, symptom support , and anxiety/mood and chronic pain Virtual Visit Clinic location: [facility]- no safety concerns identified by nurse. Richard [...] Fully Assessed Reason for Visit: pall med- [id number] [Other] Initial Consult [665] Prescriptions as of [...] directed. Dx: COPD J44.9 - Nebulizer Accessories [facility] Mask and supplies as needed - PULSE OXIMETER [facility] Use as directed to check oxygen saturation [...] as of (more content not included)... Normal [facility] 10-23-2024 [facility] Telephone ([email or web address]) DENIA GONZALEZ ([id number]) 1955 F Date Time Provider Department 10/23/24 YOSEPH FALL [facility] During your visit today, we recorded the following information about you: Clarisse Anguiano RN 10/23/2024 1:49 PM Signed Rafa [facility] called in about Pt and states je [...] chronic generalized pain and is on the [place] for it. He states the Pt would [...] card, OV note, med list faxed to [facility] at [phone] with Palliative Care specified on fax. Naima [...] laterality [M54.40, G89.29] Order(s):CONSULT TO PALLIATIVE CARE [[id number]] Order #: [id number]: 1 FUTURE Prescriptions as of 10/23/2024 - [...] directed. Dx: COPD J44.9 - Nebulizer [facility] Mask and supplies as needed - [facility] Use as directed to check oxygen saturation level - ammonium lactate (AMLACTIN) 12 % lotion Apply 1 application to affected area as needed for Dry Skin. - losartan (COZAAR) 50 mg tablet Take 0.5 tablets by mouth once daily. - OXYGEN, HOME THERAPY, 2.5 L/min (more content not included)... Normal [facility] 10-20-2024 CNPN Telephone (FAMPWS) DENIA GONZALEZ ([id number]) 1955 F Date Time Provider Department 10/20/24 YOSEPH FALL [facility] During your visit today, we recorded [...] each ankle area. She has tried contacting [facility] over the past couple of [...] Message left for Sinan to call back. JSO Sandy Sherrie, RN 10/20/2024 4:47 PM Signed [...] directed. Dx: COPD J44.9 - Nebulizer Accessories [facility] Mask and supplies as needed - [facility] Use as directed to check oxygen saturation level - ammonium lactate (AMLACTIN) 12 % lotion Apply 1 application to affected area as needed for Dry Skin. - losartan (COZAAR) 50 mg tablet Take 0.5 tablets by mouth once daily. - OXYGEN, HOME THERAPY, 2.5 L/min by Nasal Cannula route continuous. Use as directred - Disposable Gloves (DISPOSABLE LATEX-FREE GLOVES) [facility] 1 Box once every month. ICD 10: M15.9, J44.9, M54.40 - Incontinence Pad, Liner, Disp (POISE PADS) pads Use pads as directed. Dx: N39.46 - COMPOUNDED PRESCRIPTION BLOOD PRESSURE CUFF FOR HOME USE. DX: HYPERTENSION I10. AUTOMATIC CUFF. - (more content not included)... Normal [facility] 10-19-2024 [facility] DENIA GONZALEZ ([id number]) 1955 F Date Time Provider Department 10/19/24 [facility]ALL [facility] During your visit today, we recorded the following information about you: Martínez Louie, RN 10/19/2024 1:07 PM Signed Monae- nurse- [facility]- reports she saw patient today. Noted [...] laterality [M54.40, G89.29] Order(s):CONSULT TO PALLIATIVE CARE [[id number]] Order #: [id number]: 1 FUTURE Prescriptions as of 10/20/2024 - [...] directed. Dx: COPD J44.9 - Nebulizer Accessories [facility] Mask and supplies as needed - [facility] Use as directed to check oxygen saturation level - ammonium lactate (AMLACTIN) 12 % lotion Apply 1 application to affected area as needed for Dry Skin. - losartan (COZAAR) 50 mg tablet Take 0.5 tablets by mouth once daily. - OXYGEN, HOME THERAPY, 2.5 L/min by Nasal Cannula route continuous. Use as directred - Disposable Gloves (DISPOSABLE LATEX-FREE GLOVES) [facility] 1 Box once every month. ICD 10: [...] CANCER [C34.1 (more content not included)... Normal [facility] [place] 10-18-2024 [facility] Telephone (MAGUEWS) DENIA GONZALEZ ([id number]) 1955 F Date Time Provider Department 10/18/24 YOSEPH FALL During your visit today, we recorded the following information about you: Judy Bliss RN 10/18/2024 10:51 AM Signed Vilma OT calling from [place] to report plan of care for patient [...] 1:08 PM Signed Mercedez ZHENG calling from [facility] to report plan of care for patient [...] directed. Dx: COPD J44.9 - Nebulizer [facility]ories [facility] Mask and supplies as needed - [facility] Use as directed to check oxygen saturation level - ammonium lactate (AMLACTIN) 12 % lotion Apply 1 application to affected area as needed for Dry Skin. - losartan (COZAAR) 50 mg tablet Take 0.5 tablets by mouth once daily. - OXYGEN, HOME THERAPY, 2.5 L/min by Nasal Cannula route continuous. Use as directred - Disposable Gloves (DISPOSABLE LATEX-FREE GLOVES) [facility] 1 Box once every month. ICD 10: [...] Date 10/18/2024 (more content not included)... [facility] Telephone (FAMWS) DENIA GONZALEZ ([id number]) 1955 F Date Time Provider Department 10/13/24 [facility] During your visit today, we recorded the following information about you: Judy Bliss RN 10/13/2024 4:40 PM Signed Edda from [facility] calls and states that they were supposed to do a PT evaluation this week, however, they are still waiting on insurance. Edda asking for delay care order. Please review and advise, KAREN Werner Mark D, MD 10/13/2024 4:49 PM Signed OK for delay of care order as requested MD Zaki Chopra Kathryn, MA 10/13/2024 4:52 PM Signed Edda notified. Naima Haines MA Allergies As of Date: 10/13/2024 [...] directed. Dx: COPD J44.9 - Nebulizer Accessories [facility] Mask and supplies as needed - [facility] Use as directed to check oxygen saturation level - ammonium lactate (AMLACTIN) 12 % lotion Apply 1 application to affected area as needed for Dry Skin. - losartan (COZAAR) 50 mg tablet Take 0.5 tablets by mouth once daily. - OXYGEN, HOME THERAPY, 2.5 L/min by Nasal Cannula route continuous. Use as directred - Disposable Gloves (DISPOSABLE LATEX-FREE GLOVES) [facility] 1 Box once every month. ICD 10: [...] Stage 3 severe COPD by GOLD classification ([facility]*09/28/2005 Asthma [J45.909] GENERAL OSTEOARTHROSIS [M15.9] Essential hypertension, benign [I10] GENERALIZED ANXIETY DIS [F41.1] ABNORMAL PAP SMEAR OF CERVIX NEC AND HPV [R89.6] ESOPHAGEAL REFLUX [K21.9] 03/22/2007 Back pain [M54.9] 10/21/2010 07/15/2021 Cholelithiasis with acute cholangitis with bili*06/21/2016 06/27/2016 Constipation [K59.00] 06/21/2016 06/27/2016 Bacteremia [R78.81] 06/23/2016 06/27/2016 Splenic lesion [D73.89] 06/25/2016 Calculus of bile duct with acute (more content not included)... Normal [facility] Basic Metabolic Profile (BMP )on 10-11-2024 BUN Normal -19 [facility] Comment on above: Result Comment: Canc elled via OM: Order cancelled - Patient discharged Performed By: #### L 100.0100, L500.2500 #### [facility] [address] [place], [address] BUN/CRE Normal 10-20 [facility] Comment on above: Result Comment: Canc elled via OM: Order cancelled - Patient discharged Performed By: #### L 100.0100, L500.2500 #### [facility] [address] [place], [address] Calcium Normal 7.6-11.0 [facility] Comment on above: Result Comment: Canc elled via OM: Order cancelled - Patient discharged Performed By: #### L 100.0100, L500.2500 #### [facility] [address] [place], [address] CL Normal 98-108 [facility] Comment on above: Result Comment: Canc elled via OM: Order cancelled - Patient discharged Performed By: #### L 100.0100, L500.2500 #### [facility] [address] [place], [address] CO2 Normal 21.0-32.0 [facility] Comment on above: Result Comment: Canc elled via OM: Order cancelled - Patient discharged Performed By: #### L 100.0100, L500.2500 #### [facility] [address] [place], [address] CREAT,SERUM Normal 0.70-1.20 [facility] Comment on above: Result Comment: Canc elled via OM: Order cancelled - Patient discharged Performed By: #### L 100.0100, L500.2500 #### [facility] [address] [place], [address] eGFR Normal >60 [facility] Comment on above: Result Comment: Canc elled via OM: Order cancelled - Patient discharged Performed By: #### L 100.0100, L500.2500 #### [facility] [address] [place], [address] GAP Normal 5-15 [facility] Comment on above: Result Comment: Canc elled via OM: Order cancelled - Patient discharged Performed By: #### L 100.0100, L500.2500 #### [facility] [address] [place], [address] GLU Normal 70-99 [facility] Comment on above: Result Comment: Canc elled via OM: Order cancelled - Patient discharged Performed By: #### L 100.0100, L500.2500 #### [facility] [address] [place], [address] Potassium Normal 3.3-5.1 [facility] Comment on above: Result Comment: Canc elled via OM: Order cancelled - Patient discharged Performed By: #### L 100.0100, L500.2500 #### [facility] [address] [place], [address] Basic Metabolic Profile (BMP) Normal 133-145 [facility] Comment on above: Result Comment: Canc elled via OM: Order cancelled - Patient discharged Performed By: #### L 100.0100, L500.2500 #### [facility] [address] [place], [address] CBC W/Diff, Automatedon 09-24 Absolute Neut Normal 2.0-7.7 [facility] Comment on above: Result Comment: Canc elled via OM: Order cancelled - Patient discharged Performed By: #### L 100.0100, L500.2500 #### [facility] [address] [place], [address] HCT Normal 37-47 [facility] Comment on above: Result Comment: Canc elled via OM: Order cancelled - Patient discharged Performed By: #### L 100.0100, L500.2500 #### [facility] [address] [place], [address] HGB Normal 12.0-15.0 [facility] Comment on above: Result Comment: Canc elled via OM: Order cancelled - Patient discharged Performed By: #### L 100.0100, L500.2500 #### [facility] [address] [place], [address] MCH Normal 27.0-32.0 [facility] Comment on above: Result Comment: Canc elled via OM: Order cancelled - Patient discharged Performed By: #### L 100.0100, L500.2500 #### [facility] [address] [place], [address] MCHC Normal 32-36 [facility] Comment on above: Result Comment: Canc elled via OM: Order cancelled - Patient discharged Performed By: #### L 100.0100, L500.2500 #### [facility] [address] [place], [address] MCV Normal 81-99 [facility] Comment on above: Result Comment: Canc elled via OM: Order cancelled - Patient discharged Performed By: #### L 100.0100, L500.2500 #### [facility] [address] [place], [address] NEUT% Normal 47-70 [facility] Comment on above: Result Comment: Canc elled via OM: Order cancelled - Patient discharged Performed By: #### L 100.0100, L500.2500 #### [facility] [address] [place], [address] PLT Normal 150-450 [facility] Comment on above: Result Comment: Canc elled via OM: Order cancelled - Patient discharged Performed By: #### L 100.0100, L500.2500 #### [facility] [address] [place], [address] RBC Normal 4.2-5.4 [facility] Comment on above: Result Comment: Canc elled via OM: Order cancelled - Patient discharged Performed By: #### L 100.0100, L500.2500 #### [facility] [address] [place], [address] RDW CV Normal 11.6-14.6 [facility] Comment on above: Result Comment: Canc elled via OM: Order cancelled - Patient discharged Performed By: #### L 100.0100, L500.2500 #### [facility] [address] [place], [address] RDW SD Normal 35.1-43.9 [facility] Comment on above: Result Comment: Canc elled via OM: Order cancelled - Patient discharged Performed By: #### L 100.0100, L500.2500 #### [facility] [address] [place], [address] WBC Normal 4.4-11.0 [facility] Comment on above: Result Comment: Canc elled via OM: Order cancelled - Patient discharged Performed By: #### L 100.0100, L500.2500 #### [facility] [address] [place], [address] Basic Metabolic Profile (BMP )on 10-10-2024 BUN Normal 4-19 [facility] Comment on above: Result Comment: Canc elled via OM: Order cancelled - Patient discharged Performed By: #### L 501.5200 #### [facility] [address] [place], [address] BUN/CRE Normal 10-20 [facility] Comment on above: Result Comment: Canc elled via OM: Order cancelled - Patient discharged Performed By: #### L 501.5200 #### [facility] [address] [place], [address] Calcium Normal 7.6-11.0 [facility] Comment on above: Result Comment: Canc elled via OM: Order cancelled - Patient discharged Performed By: #### L 501.5200 #### [facility] [address] [place], [address] CL Normal 98-108 [facility] Comment on above: Result Comment: Canc elled via OM: Order cancelled - Patient discharged Performed By: #### L 501.5200 #### [facility] [address] [place], [address] CO2 Normal 21.0-32.0 [facility] Comment on above: Result Comment: Canc elled via OM: Order cancelled - Patient discharged Performed By: #### L 501.5200 #### [facility] [address] [place], [address] CREAT,SERUM Normal 0.70-1.20 [facility] Comment on above: Result Comment: Canc elled via OM: Order cancelled - Patient discharged Performed By: #### L 501.5200 #### [facility] [address] [place], [address] eGFR Normal >60 [facility] Comment on above: Result Comment: Canc elled via OM: Order cancelled - Patient discharged Performed By: #### L 501.5200 #### [facility] [address] [place], [address] GAP Normal 5-15 [facility] Comment on above: Result Comment: Canc elled via OM: Order cancelled - Patient discharged Performed By: #### L 501.5200 #### [facility] [address] [place], [address] GLU Normal 70-99 [facility] Comment on above: Result Comment: Canc elled via OM: Order cancelled - Patient discharged Performed By: #### L 501.5200 #### [facility] [address] [place], [address] Potassium Normal 3.3-5.1 [facility] Comment on above: Result Comment: Canc elled via OM: Order cancelled - Patient discharged Performed By: #### L 501.5200 #### [facility] [address] [place], [address] Basic Metabolic Profile (BMP) Normal 133-145 [facility] Comment on above: Result Comment: Canc elled via OM: Order cancelled - Patient discharged Performed By: #### L 501.5200 #### [facility] [address] [place], [address] CBC W/Diff, Automatedon 06-1 Absolute Neut Normal 2.0-7.7 [facility] Comment on above: Result Comment: Canc elled via OM: Order cancelled - Patient discharged Performed By: #### L 501.5200 #### [facility] [address] [place], [address] HCT Normal 37-47 [facility] Comment on above: Result Comment: Canc elled via OM: Order cancelled - Patient discharged Performed By: #### L 501.5200 #### [facility] [address] [place], [address] HGB Normal 12.0-15.0 [facility] Comment on above: Result Comment: Canc elled via OM: Order cancelled - Patient discharged Performed By: #### L 501.5200 #### [facility] [address] [place], [address] MCH Normal 27.0-32.0 [facility] Comment on above: Result Comment: Canc elled via OM: Order cancelled - Patient discharged Performed By: #### L 501.5200 #### [facility] [address] [place], [address] MCHC Normal 32-36 [facility] Comment on above: Result Comment: Canc elled via OM: Order cancelled - Patient discharged Performed By: #### L 501.5200 #### [facility] [address] [place], [address] MCV Normal 81-99 [facility] Comment on above: Result Comment: Canc elled via OM: Order cancelled - Patient discharged Performed By: #### L 501.5200 #### [facility] [address] [place], [address] NEUT% Normal 47-70 [facility] Comment on above: Result Comment: Canc elled via OM: Order cancelled - Patient discharged Performed By: #### L 501.5200 #### [facility] [address] [place], [address] PLT Normal 150-450 [facility] Comment on above: Result Comment: Canc elled via OM: Order cancelled - Patient discharged Performed By: #### L 501.5200 #### [facility] [address] [place], [address] RBC Normal 4.2-5.4 [facility] Comment on above: Result Comment: Canc elled via OM: Order cancelled - Patient discharged Performed By: #### L 501.5200 #### [facility] [address] [place], [address] RDW CV Normal 11.6-14.6 [facility] Comment on above: Result Comment: Canc elled via OM: Order cancelled - Patient discharged Performed By: #### L 501.5200 #### [facility] [address] [place], [address] RDW SD Normal 35.1-43.9 [facility] Comment on above: Result Comment: Canc elled via OM: Order cancelled - Patient discharged Performed By: #### L 501.5200 #### [facility] [address] [place], [address] WBC Normal 4.4-11.0 [facility] Comment on above: Result Comment: Canc elled via OM: Order cancelled - Patient discharged Performed By: #### L 501.5200 #### [facility] [address] [place], [address] CNPNon 10-10-2024 [facility] DENIA GONZALEZ ([id number]) 1955 F Date Time Provider Department 10/10/24 YOSEPH FALL FAMPWS During your visit today, we recorded the following information about you: Martínez Louie, RN 10/10/2024 4:34 PM Signed Corbin [facility]- reports he did start of care [...] MA - Fully Assessed Reason for Visit: [place] patient update [Other] Prescriptions as of 10/10/2024 [...] directed. Dx: COPD J44.9 - Nebulizer Accessories [facility] Mask and supplies as needed - [facility] Use as directed to check oxygen saturation level - ammonium lactate (AMLACTIN) 12 % lotion Apply 1 application to affected area as needed for Dry Skin. - losartan (COZAAR) 50 mg tablet Take 0.5 tablets by mouth once daily. - OXYGEN, HOME THERAPY, 2.5 L/min by Nasal Cannula route continuous. Use as directred - Disposable Gloves (DISPOSABLE LATEX-FREE GLOVES) [facility] 1 Box once every month. ICD 10: [...] HPV [ (more content not included)... Normal [facility] Absolute lymphocyte countOrd ered By: Lynne Schafer on 10-09-2024 Lymphocytes Auto (Unsp spec) [#/Vol] 0.67 10*3/uL Low 0.83-4.51 [facility] Absolute neutrophil countOrd ered By: Lynne Schafer on 10-09-2024 Neutrophils (Bld) [#/Vol] 8.4 10*3/uL High 2.0-7.7 [facility] Anion gap in Serum or Plasma Ordered By: Lynne Schafer on 10-09-2024 Anion gap [Moles/Vol] 5 mmol/L 5-15 [facility] Automated lymphocyte count a s percentage of total leukocytesOrdered By: Lynne Schafer on 10-09-2024 Lymphocytes/100 WBC Auto (Unsp spec) 6.9 % Low 19-41 [facility] BUN/creatinine ratioOrdered By: Lynne Schafer on 10-09-2024 Urea nitrogen/Creatinine [Mass ratio] 38.0 mg/mg High 10- [facility] Basic Metabolic Profile (BMP )on 10-09-2024 BUN/CRE 38.0 RATIO High 02-12 [facility] Comment on above: Performed By: #### L 501.5209 #### [facility] [address] [place], [place], [address] Calcium [Mass/Vol] 8.4 mg/dL Normal 7.6-11.0 [facility] Comment on above: Performed By: #### L 501.5200 #### [facility] [address] [place], [address] Chloride [Moles/Vol] 93 mmol/L Low 98-108 [facility] Comment on above: Performed By: #### L 501.5200 #### [facility] [address] [place], [address] CO2 [Moles/Vol] 40.4 mmol/L High 21.0-32.0 [facility] Comment on above: Performed By: #### L 501.5200 #### [facility] [address] [place], [address] Creatinine [Mass/Vol] 0.44 mg/dL Low 0.70-1.20 [facility] Comment on above: Performed By: #### L 501.5200 #### [facility] [address] [place], [address] ECRCL 63.35 ml/min Normal 50-250 [facility] Comment on above: Performed By: #### L 501.5200 #### [facility] [address] [place], [address] GAP 5 Normal 5-15 [facility] Comment on above: Performed By: #### L 501.5200 #### [facility] [address] [place], [address] GFR/1.73 sq M.predicted among non-blacks MDRD (S/P/Bld) [Vol rate/Area] 105 mL/min/{1.73_m2} Normal >60 [facility] Comment on above: Result Comment: mL/m in/1.73m2 CKD-EPI Creatinine Equation (2020) Performed By: #### L 501.5200 #### [facility] [address] [place], [address] Glucose [Mass/Vol] 113 mg/dL High 70-99 [facility] Comment on above: Performed By: #### L 501.5200 #### [facility] [address] [place], [address] Potassium [Moles/Vol] 4.9 mmol/L Normal 3.3-5.1 [facility] Comment on above: Result Comment: Hemo lysis present, Results??could be affected. ?? Performed By: #### L 501.5200 #### [facility] [address] [place], [address] Sodium [Moles/Vol] 139 mmol/L Normal 133-145 [facility] Comment on above: Performed By: #### L 501.5200 #### [facility] [address] [place], [address] Urea nitrogen [Mass/Vol] 17 mg/dL Normal 4-19 [facility] Comment on above: Performed By: #### L 501.5200 #### [facility] [address] [place], [address] Basophil percentageOrdered B y: Lynne Schafer on 10-09-2024 Basophils/100 WBC (Bld) 0.1 % 0-1 [facility] CBC W/Diff, Automatedon 09-24 Absolute Lymph 0.67 X10 3/uL Low 0.83-4.51 [facility] Comment on above: Performed By: #### L 100.0100, L500.2500 #### [facility] [address] [place], [address] Absolute Neut 8.4 X10 3/uL High 2.0-7.7 [facility] Comment on above: Performed By: #### L 100.0100, L500.2500 #### [facility] [address] [place], [address] Basophils/100 WBC (Bld) 0.1 % Normal 0-1 [facility] Comment on above: Performed By: #### L 100.0100, L500.2500 #### [facility] [address] [place], [address] Eosinophils/100 WBC (Bld) 0.0 % Normal 0-5 [facility] Comment on above: Performed By: #### L 100.0100, L500.2500 #### [facility] [address] [place], [address] Erythrocyte distribution width (RBC) [Ratio] 13.1 % Normal 11.6-14.6 [facility] Comment on above: Performed By: #### L 100.0100, L500.2500 #### [facility] [address] [place], [address] Hematocrit (Bld) [Volume fraction] 41.6 % Normal 37-47 [facility] Comment on above: Performed By: #### L 100.0100, L500.2500 #### [facility] [address] [place], [address] Hemoglobin (Bld) [Mass/Vol] 13.5 g/dL Normal 12.0-15.0 [facility] Comment on above: Performed By: #### L 100.0100, L500.2500 #### [facility] [address] [place], [address] IG% 0.800 Normal 0.0-0.9 [facility] Comment on above: Result Comment: IG% - Immature Granulocytes (promyelocytes, myelocytes and metamyelocytes) > 1% indicates that a LEFT SHIFT is Present. Performed By: #### L 100.0100, L500.2500 #### [facility] [address] [place], [address] Lymphocytes/100 WBC (Bld) 6.9 % Low 19-41 [facility] Comment on above: Performed By: #### L 100.0100, L500.2500 #### [facility] [address] [place], [address] MCH (RBC) [Entitic mass] 27.9 pg Normal 27.0-32.0 [facility] Comment on above: Performed By: #### L 100.0100, L500.2500 #### [facility] [address] [place], [address] MCHC (RBC) [Mass/Vol] 32.5 g/dL Normal 32-36 [facility] Comment on above: Performed By: #### L 100.0100, L500.2500 #### [facility] [address] [place], [address] MCV (RBC) [Entitic vol] 86.0 fL Normal 81-99 [facility] Comment on above: Performed By: #### L 100.0100, L500.2500 #### [facility] [address] [place], [address] Monocytes/100 WBC (Bld) 5.3 % Normal 0-10 [facility] Comment on above: Performed By: #### L 100.0100, L500.2500 #### [facility] [address] [place], [address] Neutrophils/100 WBC (Bld) 86.9 % High 47-70 [facility] Comment on above: Performed By: #### L 100.0100, L500.2500 #### [facility] [address] [place], [address] Nucleated RBC (Bld) [#/Vol] 0 10*3/uL Normal 0-5 [facility] Comment on above: Performed By: #### L 100.0100, L500.2500 #### [facility] [address] [place], [address] Platelet mean volume (Bld) [Entitic vol] 10.0 fL Normal 6.2-12.0 [facility] Comment on above: Performed By: #### L 100.0100, L500.2500 #### [facility] [address] [place], [address] Platelets (Bld) [#/Vol] 181 10*3/uL Normal 150-450 [facility] Comment on above: Performed By: #### L 100.0100, L500.2500 #### [facility] [address] [place], [address] RBC (Bld) [#/Vol] 4.84 10*6/uL Normal 4.2-5.4 [facility] Comment on above: Performed By: #### L 100.0100, L500.2500 #### [facility] [address] [place], [address] RDW SD 41.1 fl Normal 35.1-43.9 [facility] Comment on above: Performed By: #### L 100.0100, L500.2500 #### [facility] [address] [place], [address] WBC (Bld) [#/Vol] 9.7 10*3/uL Normal 4.4-11.0 [facility] Comment on above: Performed By: #### L 100.0100, L500.2500 #### [facility] [address] [place], [address] CNPNon 10-09-2024 CNPN Telephone (FAMPWS) DENIA GONZALEZ ([id number]) 1955 F Date Time Provider Department 10/09/24 YOSEPH FALL During your visit today, we recorded the following information about you: Clarisse Anguiano RN 10/09/2024 7:28 PM Signed Pt's significant other Mike called in and reports Pt was in the hospital for 11 days and released about an hour and a half ago. He states [facility] in [place] doesn't have the Multaq in stock, but [...] PM Signed They may wait until [facility] can get the Multaq tomorrow MD Zaki [...] directed. Dx: COPD J44.9 - Nebulizer Accessories [facility] Mask and supplies as needed - PULSE [facility] Use as directed to check oxygen saturation level - ammonium lactate (AMLACTIN) 12 % lotion Apply 1 application to affected area as needed for Dry Skin. - losartan (COZAAR) 50 mg tablet Take 0.5 tablets by mouth once daily. - OXYGEN, HOME THERAPY, 2.5 L/min by Nasal Cannula route continuous. Use as directred - Disposable Gloves (DISPOSABLE LATEX-FREE GLOVES) [facility] 1 Box once every month. ICD 10: M15.9, J44.9, M54.40 - Incontinence Pad, Liner, Disp (POISE PADS) pads Use pads as directed. Dx: N39.46 - COMPOUNDED PRESCRIPTION BLOOD PRESSURE CUFF FOR HOME USE. DX: HYPERTENSION I10. AUTOMATIC CU (more content not included)... Normal [facility] CNPN Telephone (VALERIA) DENIA GONZALEZ ([id number]) 1955 F Date Time Provider Department 10/09/24 YOSEPH FALL During your visit today, we recorded the following information about you: Sukhi Marrero, RN 10/09/2024 3:10 PM Akash Valerio with [facility] calls to ask if provider will follow their HH orders for SN, PT, OT. Patient discharging home today from [facility] after being treated for COPD exacerbation and new onset A-fib. Please call Iman back at [phone]. KAREN Barney Mark D, MD 10/09/2024 3:54 [...] directed. Dx: COPD J44.9 - Nebulizer Accessories [facility] Mask and supplies as needed - [facility] Use as directed to check oxygen saturation level - ammonium lactate (AMLACTIN) 12 % lotion Apply 1 application to affected area as needed for Dry Skin. - losartan (COZAAR) 50 mg tablet Take 0.5 tablets by mouth once daily. - OXYGEN, HOME THERAPY, 2.5 L/min by Nasal Cannula route continuous. Use as directred - Disposable Gloves (DISPOSABLE LATEX-FREE GLOVES) [facility] 1 Box once every month. ICD 10: [...] *02/20/2022 Ciga (more content not included)... Normal [facility] CNPN Telephone (FAMWS) DENIA GONZALEZ ([id number]) 1955 F Date Time Provider Department 10/09/24 YOSEPH FALL [facility] During your visit today, we recorded the following information about you: Padmini Abbott RN 10/09/2024 8:40 AM Signed Palma Anguiano with [facility] calling to update provider that patient has been at [facility] since 09/29/24. KAREN Robledo Mark D, MD [...] directed. Dx: COPD J44.9 - Nebulizer Accessories [facility] Mask and supplies as needed - [facility] Use as directed to check oxygen saturation level - ammonium lactate (AMLACTIN) 12 % lotion Apply 1 application to affected area as needed for Dry Skin. - losartan (COZAAR) 50 mg tablet Take 0.5 tablets by mouth once daily. - OXYGEN, HOME THERAPY, 2.5 L/min by Nasal Cannula route continuous. Use as directred - Disposable Gloves (DISPOSABLE LATEX-FREE GLOVES) [facility] 1 Box once every month. ICD 10: [...] Status:Closed by YOSEPH FALL on 10/09/[address] [facility] Carbon dioxide, total [Moles /volume] in Central venous bloodOrdered By: Lynne Schafer on 10-09-2024 CO2 [Moles/Vol] 40.4 mmol/L High 21.0-32.0 [facility] Chloride assayOrdered By: Na kathi Schafer on 10-09-2024 Chloride [Moles/Vol] 93 mmol/L Low 98-108 [facility] Discharge Instructionon 09-24 Discharge Instruction [facility] Medical Records Department [address] [place] [address] Instructions for Home/Discharge Instructions 10/09/24 1542 MR#: [id number] Acct: [id number] Name: DENIA GONZALEZ Rep #: [id number] : 1955 69 From: Alessandro Palma MD [...] can be placed): Home Health Service 10/09/24 8751 Alessandro Palma MD CC: Dr. Dionne Porter MD; Dr. Yoseph Fall MD; Dr. Junito Madrid MD; Dr. Lynne Schafer MD; Dr. Jan Bolanos MD Signed Normal [facility] Eosinophil percentageOrdered By: Lynne Schafer on 10-09-2024 Eosinophils/100 WBC (Bld) 0.0 % 0-5 [facility] Erythrocyte distribution wid th ratioOrdered By: Lynne Schafer on 10-09-2024 Erythrocyte distribution width (RBC) [Ratio] 13.1 % 11.6-14.6 [facility] Erythrocyte distribution wid th standard deviationOrdered By: Lynne Schafer on 10-09-2024 Erythrocyte distribution width (RBC) [Ratio] 41.1 fl 35.1-43.9 [facility] Glomerular filtration rate ( GFR) estimation/1.73 sq m using serum, plasma, or whole bOrdered By: Lynne Schafer on 10-09-2024 GFR/1.73 sq M.predicted among non-blacks MDRD (S/P/Bld) [Vol rate/Area] 105 mL/min/{1.73_m2} >60 [facility] Comment on above: mL/min/1.73m2 CKD-EP I Creatinine Equation (2020) Hematocrit Auto (Bld) [Volum e fraction]Ordered By: Lynne Schafer on 10-09-2024 Hematocrit (Bld) [Volume fraction] 41.6 % 37-47 [facility] Hemoglobin measurementOrdere d By: Lynne Schafer on 10-09-2024 Hemoglobin (Bld) [Mass/Vol] 13.5 g/dL 12.0-15.0 [facility] Immature granulocytes/100 WB C Auto (Bld)Ordered By: Lynne Schafer on 10-09-2024 Immature granulocytes/100 WBC (Bld) 0.800 % 0.0-0.9 [facility] Comment on above: IG% - Immature Granu locytes (promyelocytes, myelocytes and metamyelocytes) > 1% indicates that a LEFT SHIFT is Present. MCV (mean corpuscular volume ) determinationOrdered By: Lynne Schafer on 10-09-2024 MCV (RBC) [Entitic vol] 86.0 fL 81-99 [facility] Mean corpuscular hemoglobin (MCH) determinationOrdered By: Lynne Schafer 10-09-2024 MCH (RBC) [Entitic mass] 27.9 pg 27.0-32.0 [facility] Mean corpuscular hemoglobin concentration (MCHC) determinationOrdered By: Lynne Schafer 10-09-2024 MCHC (RBC) [Mass/Vol] 32.5 g/dL 32-36 [facility] Mean platelet volume determi nationOrdered By: Lynne Schafer on 10-09-2024 Platelet mean volume (Bld) [Entitic vol] 10.0 fL 6.2-12.0 [facility] Monocyte percentageOrdered B y: Lynne Schafer on 10-09-2024 Monocytes/100 WBC (Bld) 5.3 % 0-10 [facility] Neutrophil percentageOrdered By: Lynne Schafer on 10-09-2024 Neutrophils/100 WBC (Bld) 86.9 % High 47-70 [facility] Nucleated red blood cell per centageOrdered By: Lynne Schafer on 10-09-2024 Nucleated RBC/100 WBC (Bld) [Ratio] 0 % 0-5 [facility] Platelet countOrdered By: Na kathi Schafer on 10-09-2024 Platelets (Bld) [#/Vol] 181 10*3/uL 150-450 [facility] Potassium measurement (mass/ volume)Ordered By: Lynne Schafer on 10-09-2024 Potassium (Unsp spec) [Mass/Vol] 4.9 mmol/L 3.3-5.1 [facility] Comment on above: Hemolysis present, R esults could be affected. RBC Auto (Bld) [#/Vol]Ordere d By: yLnne Schafer on 10-09-2024 RBC (Bld) [#/Vol] 4.84 10*6/uL 4.2-5.4 [facility] Serum creatinine measurement (mass/volume)Ordered By: Lynne Schafer on 10-09-2024 Creatinine [Mass/Vol] 0.44 mg/dL Low 0.70-1.20 [facility] Serum glucose measurement (m ass/volume)Ordered By: Lynne Schafer on 10-09-2024 Glucose [Mass/Vol] 113 mg/dL High 70-99 [facility] Serum or plasma calcium kadi urement (mass/volume)Ordered By: Lynne Schafer on 10-09-2024 Calcium [Mass/Vol] 8.4 mg/dL 7.6-11.0 [facility] Serum or plasma urea nitroge n measurement (mass/volume)Ordered By: Lynne Schafer on 10-09-2024 Urea nitrogen [Mass/Vol] 17 mg/dL 4-19 [facility] Sodium levelOrdered By: Lynne Schafer on 10-09-2024 Sodium [Moles/Vol] 139 mmol/L 133-145 [facility] White blood cell (WBC) count Ordered By: Lynne Schafer on 10-09-2024 WBC (Bld) [#/Vol] 9.7 10*3/uL 4.4-11.0 [facility] 12 Lead EKGon 10-08-2024 12 Lead EKG [facility] Services [address] [place] [address] 12 Lead EKG 10/08/24 0908 MR#: [id number] Acct: [id number] Name: DENIA GONZALEZ Rep #: [id number] : 1955 69 From: Danny Hopkins MD Attending Dr: Dr. Alessandro Palma MD Status: DIS IN Ordering Dr: Lynne Schafer MD Date: 10/08/24 Location: [facility] Sex: F C Admitted: 09/29/24 Test Reason [...] UNCONFIRMED Confirmed by DANNY HOPKINS MD ([id number]), assignment desk editor CLARISSE RAMIREZ ([id number]) on 10/10/2024 8:27:24 AM Referred By: Confirmed By: DANNY HOPKINS MD 10/10/24826 Date Danny Hopkins MD CC: Dr. Yoseph Fall MD; Dr. Lynne Schafer MD; Dr. Alessandro Palma MD Signed Normal [facility] Basic Metabolic Profile (BMP )on 10-08-2024 BUN/CRE 34.4 RATIO High 10-20 [facility] Comment on above: Performed By: #### L 506.0400, L500.2500, L100.0100 #### [facility] [address] [place], [address] Calcium [Mass/Vol] 8.1 mg/dL Normal 7.6-11.0 [facility] Comment on above: Performed By: #### L 506.0400, L500.2500, L100.0100 #### [facility] [address] [place], [address] Chloride [Moles/Vol] 92 mmol/L Low 98-108 [facility] Comment on above: Performed By: #### L 506.0400, L500.2500, L100.0100 #### [facility] [address] [place], [address] CO2 [Moles/Vol] 38.6 mmol/L High 21.0-32.0 [facility] Comment on above: Performed By: #### L 506.0400, L500.2500, L100.0100 #### [facility] [address] [place], [address] Creatinine [Mass/Vol] 0.51 mg/dL Low 0.70-1.20 [facility] Comment on above: Performed By: #### L 506.0400, L500.2500, L100.0100 #### [facility] [address] [place], [address] ECRCL 64.27 ml/min Normal 50-250 [facility] Comment on above: Performed By: #### L 506.0400, L500.2500, L100.0100 #### [facility] [address] [place], [address] GAP 7 Normal 5-15 [facility] Comment on above: Performed By: #### L 506.0400, L500.2500, L100.0100 #### [facility] [address] [place], [address] GFR/1.73 sq M.predicted among non-blacks MDRD (S/P/Bld) [Vol rate/Area] 101 mL/min/{1.73_m2} Normal >60 [facility] Comment on above: Result Comment: mL/m in/1.73m2 CKD-EPI Creatinine Equation (2020) Performed By: #### L 506.0400, L500.2500, L100.0100 #### [facility] [address] [place], [address] Glucose [Mass/Vol] 179 mg/dL High 70-99 [facility] Comment on above: Performed By: #### L 506.0400, L500.2500, L100.0100 #### [facility] [address] [place], [address] Potassium [Moles/Vol] 4.6 mmol/L Normal 3.3-5.1 [facility] Comment on above: Performed By: #### L 506.0400, L500.2500, L100.0100 #### [facility] [address] [place], [address] Sodium [Moles/Vol] 138 mmol/L Normal 133-145 [facility] Comment on above: Performed By: #### L 506.0400, L500.2500, L100.0100 #### [facility] [address] [place], [address] Urea nitrogen [Mass/Vol] 18 mg/dL Normal 4-19 [facility] Comment on above: Performed By: #### L 506.0400, L500.2500, L100.0100 #### [facility] [address] [place], [address] CBC W/Diff, Automatedon 09-24 Absolute Lymph 0.41 X10 3/uL Low 0.83-4.51 [facility] Comment on above: Performed By: #### L 506.0400, L500.2500, L100.0100 #### [facility] [address] [place], [address] Absolute Neut 7.2 X10 3/uL Normal 2.0-7.7 [facility] Comment on above: Performed By: #### L 506.0400, L500.2500, L100.0100 #### [facility] [address] [place], [address] Basophils/100 WBC (Bld) 0.2 % Normal 0-1 [facility] Comment on above: Performed By: #### L 506.0400, L500.2500, L100.0100 #### [facility] [address] [place], [address] Eosinophils/100 WBC (Bld) 0.0 % Normal 0-5 [facility] Comment on above: Performed By: #### L 506.0400, L500.2500, L100.0100 #### [facility] [address] [place], [address] Erythrocyte distribution width (RBC) [Ratio] 13.0 % Normal 11.6-14.6 [facility] Comment on above: Performed By: #### L 506.0400, L500.2500, L100.0100 #### [facility] [address] [place], [address] Hematocrit (Bld) [Volume fraction] 41.6 % Normal 37-47 [facility] Comment on above: Performed By: #### L 506.0400, L500.2500, L100.0100 #### [facility] [address] [place], [address] Hemoglobin (Bld) [Mass/Vol] 13.2 g/dL Normal 12.0-15.0 [facility] Comment on above: Performed By: #### L 506.0400, L500.2500, L100.0100 #### [facility] [address] [place], [address] IG% 0.900 Normal 0.0-0.9 [facility] Comment on above: Result Comment: IG% - Immature Granulocytes (promyelocytes, myelocytes and metamyelocytes) > 1% indicates that a LEFT SHIFT is Present. Performed By: #### L 506.0400, L500.2500, L100.0100 #### [facility] [address] [place], [address] Lymphocytes/100 WBC (Bld) 5.1 % Low 19-41 [facility] Comment on above: Performed By: #### L 506.0400, L500.2500, L100.0100 #### [facility] [address] [place], [address] MCH (RBC) [Entitic mass] 27.3 pg Normal 27.0-32.0 [facility] Comment on above: Performed By: #### L 506.0400, L500.2500, L100.0100 #### [facility] [address] [place], [address] MCHC (RBC) [Mass/Vol] 31.7 g/dL Low 32-36 [facility] Comment on above: Performed By: #### L 506.0400, L500.2500, L100.0100 #### [facility] [address] [place], [address] MCV (RBC) [Entitic vol] 86.1 fL Normal 81-99 [facility] Comment on above: Performed By: #### L 506.0400, L500.2500, L100.0100 #### [facility] [address] [place], [address] Monocytes/100 WBC (Bld) 4.7 % Normal 0-10 [facility] Comment on above: Performed By: #### L 506.0400, L500.2500, L100.0100 #### [facility] [address] [place], [address] Neutrophils/100 WBC (Bld) 89.1 % High 47-70 [facility] Comment on above: Performed By: #### L 506.0400, L500.2500, L100.0100 #### [facility] [address] [place], [address] Nucleated RBC (Bld) [#/Vol] 0 10*3/uL Normal 0-5 [facility] Comment on above: Performed By: #### L 506.0400, L500.2500, L100.0100 #### [facility] [address] [place], [address] Platelet mean volume (Bld) [Entitic vol] 10.0 fL Normal 6.2-12.0 [facility] Comment on above: Performed By: #### L 506.0400, L500.2500, L100.0100 #### [facility] [address] [place], [address] Platelets (Bld) [#/Vol] 168 10*3/uL Normal 150-450 [facility] Comment on above: Performed By: #### L 506.0400, L500.2500, L100.0100 #### [facility] [address] [place], [address] RBC (Bld) [#/Vol] 4.83 10*6/uL Normal 4.2-5.4 [facility] Comment on above: Performed By: #### L 506.0400, L500.2500, L100.0100 #### [facility] [address] [place], [address] RDW SD 40.7 fl Normal 35.1-43.9 [facility] Comment on above: Performed By: #### L 506.0400, L500.2500, L100.0100 #### [facility] [address] [place], [address] WBC (Bld) [#/Vol] 8.1 10*3/uL Normal 4.4-11.0 [facility] Comment on above: Performed By: #### L 506.0400, L500.2500, L100.0100 #### [facility] [address] [place], [address] Basic Metabolic Profile (BMP )on 10-07-2024 BUN/CRE 37.1 RATIO High 10-20 [facility] Comment on above: Performed By: #### L 506.0400, L500.2500, L100.0100 #### [facility] [address] [place], [address] Calcium [Mass/Vol] 8.1 mg/dL Normal 7.6-11.0 [facility] Comment on above: Performed By: #### L 506.0400, L500.2500, L100.0100 #### [facility] [address] [place], [address] Chloride [Moles/Vol] 93 mmol/L Low 98-108 [facility] Comment on above: Performed By: #### L 506.0400, L500.2500, L100.0100 #### [facility] [address] [place], [address] CO2 [Moles/Vol] 38.2 mmol/L High 21.0-32.0 [facility] Comment on above: Performed By: #### L 506.0400, L500.2500, L100.0100 #### [facility] [address] [place], [address] Creatinine [Mass/Vol] 0.50 mg/dL Low 0.70-1.20 [facility] Comment on above: Performed By: #### L 506.0400, L500.2500, L100.0100 #### [facility] [address] [place], [address] ECRCL 63.81 ml/min Normal 50-250 [facility] Comment on above: Performed By: #### L 506.0400, L500.2500, L100.0100 #### [facility] [address] [place], [address] GAP 6 Normal 5-15 [facility] Comment on above: Performed By: #### L 506.0400, L500.2500, L100.0100 #### [facility] [address] [place], [address] GFR/1.73 sq M.predicted among non-blacks MDRD (S/P/Bld) [Vol rate/Area] 101 mL/min/{1.73_m2} Normal >60 [facility] Comment on above: Result Comment: mL/m in/1.73m2 CKD-EPI Creatinine Equation (2020) Performed By: #### L 506.0400, L500.2500, L100.0100 #### [facility] [address] [place], [address] Glucose [Mass/Vol] 192 mg/dL High 70-99 [facility] Comment on above: Performed By: #### L 506.0400, L500.2500, L100.0100 #### [facility] [address] [place], [address] Potassium [Moles/Vol] 4.8 mmol/L Normal 3.3-5.1 [facility] Comment on above: Result Comment: Hemo lysis present, Results??could be affected. ?? Performed By: #### L 506.0400, L500.2500, L100.0100 #### [facility] [address] [place], [address] Sodium [Moles/Vol] 137 mmol/L Normal 133-145 [facility] Comment on above: Performed By: #### L 506.0400, L500.2500, L100.0100 #### [facility] [address] [place], [address] Urea nitrogen [Mass/Vol] 19 mg/dL Normal 4-19 [facility] Comment on above: Performed By: #### L 506.0400, L500.2500, L100.0100 #### [facility] [address] [place], [address] CBC W/Diff, Automatedon - Absolute Lymph 0.39 X10 3/uL Low 0.83-4.51 [facility] Comment on above: Performed By: #### L 506.0400, L500.2500, L100.0100 #### [facility] [address] [place], [address] Absolute Neut 8.0 X10 3/uL High 2.0-7.7 [facility] Comment on above: Performed By: #### L 506.0400, L500.2500, L100.0100 #### [facility] [address] [place], [address] Basophils/100 WBC (Bld) 0.2 % Normal 0-1 [facility] Comment on above: Performed By: #### L 506.0400, L500.2500, L100.0100 #### [facility] [address] [place], [address] Eosinophils/100 WBC (Bld) 0.0 % Normal 0-5 [facility] Comment on above: Performed By: #### L 506.0400, L500.2500, L100.0100 #### [facility] [address] [place], [address] Erythrocyte distribution width (RBC) [Ratio] 13.0 % Normal 11.6-14.6 [facility] Comment on above: Performed By: #### L 506.0400, L500.2500, L100.0100 #### [facility] [address] [place], [address] Hematocrit (Bld) [Volume fraction] 41.4 % Normal 37-47 [facility] Comment on above: Performed By: #### L 506.0400, L500.2500, L100.0100 #### [facility] [address] [place], [address] Hemoglobin (Bld) [Mass/Vol] 13.5 g/dL Normal 12.0-15.0 [facility] Comment on above: Performed By: #### L 506.0400, L500.2500, L100.0100 #### [facility] [address] [place], [address] IG% 0.900 Normal 0.0-0.9 [facility] Comment on above: Result Comment: IG% - Immature Granulocytes (promyelocytes, myelocytes and metamyelocytes) > 1% indicates that a LEFT SHIFT is Present. Performed By: #### L 506.0400, L500.2500, L100.0100 #### [facility] [address] [place], [address] Lymphocytes/100 WBC (Bld) 4.3 % Low 19-41 [facility] Comment on above: Performed By: #### L 506.0400, L500.2500, L100.0100 #### [facility] [address] [place], [address] MCH (RBC) [Entitic mass] 28.2 pg Normal 27.0-32.0 [facility] Comment on above: Performed By: #### L 506.0400, L500.2500, L100.0100 #### [facility] [address] [place], [address] MCHC (RBC) [Mass/Vol] 32.6 g/dL Normal 32-36 [facility] Comment on above: Performed By: #### L 506.0400, L500.2500, L100.0100 #### [facility] [address] [place], [address] MCV (RBC) [Entitic vol] 86.6 fL Normal 81-99 [facility] Comment on above: Performed By: #### L 506.0400, L500.2500, L100.0100 #### [facility] [address] [place], [address] Monocytes/100 WBC (Bld) 5.4 % Normal 0-10 [facility] Comment on above: Performed By: #### L 506.0400, L500.2500, L100.0100 #### [facility] [address] [place], [address] Neutrophils/100 WBC (Bld) 89.2 % High 47-70 [facility] Comment on above: Performed By: #### L 506.0400, L500.2500, L100.0100 #### [facility] [address] [place], [address] Nucleated RBC (Bld) [#/Vol] 0 10*3/uL Normal 0-5 [facility] Comment on above: Performed By: #### L 506.0400, L500.2500, L100.0100 #### [facility] [address] [place], [address] Platelet mean volume (Bld) [Entitic vol] 9.9 fL Normal 6.2-12.0 [facility] Comment on above: Performed By: #### L 506.0400, L500.2500, L100.0100 #### [facility] [address] [place], [address] Platelets (Bld) [#/Vol] 176 10*3/uL Normal 150-450 [facility] Comment on above: Performed By: #### L 506.0400, L500.2500, L100.0100 #### [facility] [address] [place], [address] RBC (Bld) [#/Vol] 4.78 10*6/uL Normal 4.2-5.4 [facility] Comment on above: Performed By: #### L 506.0400, L500.2500, L100.0100 #### [facility] [address] [place], [address] RDW SD 41.1 fl Normal 35.1-43.9 [facility] Comment on above: Performed By: #### L 506.0400, L500.2500, L100.0100 #### [facility] [address] [place], [address] WBC (Bld) [#/Vol] 9.0 10*3/uL Normal 4.4-11.0 [facility] Comment on above: Performed By: #### L 506.0400, L500.2500, L100.0100 #### [facility] [address] [place], [address] Magnesiumon 10-07-2024 Magnesium [Mass/Vol] 2.5 mg/dL High 1.5-2.2 [facility] Comment on above: Performed By: #### L 501.5200 #### [facility] [address] [place], [address] Magnesium measurement (mass/ volume)Ordered By: Michael Plasencia on 10-07-2024 Magnesium (Unsp spec) [Mass/Vol] 2.5 mg/dL High 1.5-2.2 [facility] Basic Metabolic Profile (BMP )on 10-06-2024 BUN/CRE 43.8 RATIO High 10-20 [facility] Comment on above: Performed By: #### L 506.0400, L500.2500, L100.0100 #### [facility] [address] [place], [address] Calcium [Mass/Vol] 8.3 mg/dL Normal 7.6-11.0 [facility] Comment on above: Performed By: #### L 506.0400, L500.2500, L100.0100 #### [facility] [address] [place], [address] Chloride [Moles/Vol] 94 mmol/L Low 98-108 [facility] Comment on above: Performed By: #### L 506.0400, L500.2500, L100.0100 #### [facility] [address] [place], [address] CO2 [Moles/Vol] 36.3 mmol/L High 21.0-32.0 [facility] Comment on above: Performed By: #### L 506.0400, L500.2500, L100.0100 #### [facility] [address] [place], [address] Creatinine [Mass/Vol] 0.45 mg/dL Low 0.70-1.20 [facility] Comment on above: Performed By: #### L 506.0400, L500.2500, L100.0100 #### [facility] [address] [place], [address] ECRCL 63.77 ml/min Normal 50-250 [facility] Comment on above: Performed By: #### L 506.0400, L500.2500, L100.0100 #### [facility] [address] [place], [address] GAP 7 Normal 5-15 [facility] Comment on above: Performed By: #### L 506.0400, L500.2500, L100.0100 #### [facility] [address] [place], [address] GFR/1.73 sq M.predicted among non-blacks MDRD (S/P/Bld) [Vol rate/Area] 104 mL/min/{1.73_m2} Normal >60 [facility] Comment on above: Result Comment: mL/m in/1.73m2 CKD-EPI Creatinine Equation (2020) Performed By: #### L 506.0400, L500.2500, L100.0100 #### [facility] [address] [place], [address] Glucose [Mass/Vol] 168 mg/dL High 70-99 [facility] Comment on above: Performed By: #### L 506.0400, L500.2500, L100.0100 #### [facility] [address] [place], [address] Potassium [Moles/Vol] 4.5 mmol/L Normal 3.3-5.1 [facility] Comment on above: Performed By: #### L 506.0400, L500.2500, L100.0100 #### [facility] [address] [place], [address] Sodium [Moles/Vol] 137 mmol/L Normal 133-145 [facility] Comment on above: Performed By: #### L 506.0400, L500.2500, L100.0100 #### [facility] [address] [place], [address] Urea nitrogen [Mass/Vol] 20 mg/dL High 4-19 [facility] Comment on above: Performed By: #### L 506.0400, L500.2500, L100.0100 #### [facility] [address] [place], [address] CBC W/Diff, Automatedon 06-1 -2024 Absolute Lymph 0.44 X10 3/uL Low 0.83-4.51 [facility] Comment on above: Performed By: #### L 506.0400, L500.2500, L100.0100 #### [facility] [address] [place], [address] Absolute Neut 8.7 X10 3/uL High 2.0-7.7 [facility] Comment on above: Performed By: #### L 506.0400, L500.2500, L100.0100 #### [facility] [address] [place], [address] Basophils/100 WBC (Bld) 0.1 % Normal 0-1 [facility] Comment on above: Performed By: #### L 506.0400, L500.2500, L100.0100 #### [facility] [address] [place], [address] Eosinophils/100 WBC (Bld) 0.0 % Normal 0-5 [facility] Comment on above: Performed By: #### L 506.0400, L500.2500, L100.0100 #### [facility] [address] [place], [address] Erythrocyte distribution width (RBC) [Ratio] 13.0 % Normal 11.6-14.6 [facility] Comment on above: Performed By: #### L 506.0400, L500.2500, L100.0100 #### [facility] [address] [place], [address] Hematocrit (Bld) [Volume fraction] 43.5 % Normal 37-47 [facility] Comment on above: Performed By: #### L 506.0400, L500.2500, L100.0100 #### [facility] [address] [place], [address] Hemoglobin (Bld) [Mass/Vol] 14.2 g/dL Normal 12.0-15.0 [facility] Comment on above: Performed By: #### L 506.0400, L500.2500, L100.0100 #### [facility] [address] [place], [address] IG% 0.800 Normal 0.0-0.9 [facility] Comment on above: Result Comment: IG% - Immature Granulocytes (promyelocytes, myelocytes and metamyelocytes) > 1% indicates that a LEFT SHIFT is Present. Performed By: #### L 506.0400, L500.2500, L100.0100 #### [facility] [address] [place], [address] Lymphocytes/100 WBC (Bld) 4.6 % Low 19-41 [facility] Comment on above: Performed By: #### L 506.0400, L500.2500, L100.0100 #### [facility] [address] [place], [address] MCH (RBC) [Entitic mass] 27.7 pg Normal 27.0-32.0 [facility] Comment on above: Performed By: #### L 506.0400, L500.2500, L100.0100 #### [facility] [address] [place], [address] MCHC (RBC) [Mass/Vol] 32.6 g/dL Normal 32-36 [facility] Comment on above: Performed By: #### L 506.0400, L500.2500, L100.0100 #### [facility] [address] [place], [address] MCV (RBC) [Entitic vol] 84.8 fL Normal 81-99 [facility] Comment on above: Performed By: #### L 506.0400, L500.2500, L100.0100 #### [facility] [address] [place], [address] Monocytes/100 WBC (Bld) 3.9 % Normal 0-10 [facility] Comment on above: Performed By: #### L 506.0400, L500.2500, L100.0100 #### [facility] [address] [place], [address] Neutrophils/100 WBC (Bld) 90.6 % High 47-70 [facility] Comment on above: Performed By: #### L 506.0400, L500.2500, L100.0100 #### [facility] [address] [place], [address] Nucleated RBC (Bld) [#/Vol] 0 10*3/uL Normal 0-5 [facility] Comment on above: Performed By: #### L 506.0400, L500.2500, L100.0100 #### [facility] [address] [place], [address] Platelet mean volume (Bld) [Entitic vol] 10.2 fL Normal 6.2-12.0 [facility] Comment on above: Performed By: #### L 506.0400, L500.2500, L100.0100 #### [facility] [address] [place], [address] Platelets (Bld) [#/Vol] 176 10*3/uL Normal 150-450 [facility] Comment on above: Performed By: #### L 506.0400, L500.2500, L100.0100 #### [facility] [address] [place], [address] RBC (Bld) [#/Vol] 5.13 10*6/uL Normal 4.2-5.4 [facility] Comment on above: Performed By: #### L 506.0400, L500.2500, L100.0100 #### [facility] [address] [place], [address] RDW SD 40.3 fl Normal 35.1-43.9 [facility] Comment on above: Performed By: #### L 506.0400, L500.2500, L100.0100 #### [facility] [address] [place], [address] WBC (Bld) [#/Vol] 9.7 10*3/uL Normal 4.4-11.0 [facility] Comment on above: Performed By: #### L 506.0400, L500.2500, L100.0100 #### [facility] [address] [place], [address] Basic Metabolic Profile (BMP )on 10-05-2024 BUN/CRE 44.0 RATIO High 10-20 [facility] Comment on above: Performed By: #### L 501.5200 #### [facility] [address] [place], [address] Calcium [Mass/Vol] 8.5 mg/dL Normal 7.6-11.0 [facility] Comment on above: Performed By: #### L 501.5200 #### [facility] [address] [place], [address] Chloride [Moles/Vol] 94 mmol/L Low 98-108 [facility] Comment on above: Performed By: #### L 501.5200 #### [facility] [address] [place], [address] CO2 [Moles/Vol] 36.3 mmol/L High 21.0-32.0 [facility] Comment on above: Performed By: #### L 501.5200 #### [facility] [address] [place], [address] Creatinine [Mass/Vol] 0.52 mg/dL Low 0.70-1.20 [facility] Comment on above: Performed By: #### L 501.5200 #### [facility] [address] [place], [address] ECRCL 64.35 ml/min Normal 50-250 [facility] Comment on above: Performed By: #### L 501.5200 #### [facility] [address] [place], [address] GAP 6 Normal 5-15 [facility] Comment on above: Performed By: #### L 501.5200 #### [facility] [address] [place], [address] GFR/1.73 sq M.predicted among non-blacks MDRD (S/P/Bld) [Vol rate/Area] 101 mL/min/{1.73_m2} Normal >60 [facility] Comment on above: Result Comment: mL/m in/1.73m2 CKD-EPI Creatinine Equation (2020) Performed By: #### L 501.5200 #### [facility] [address] [place], [address] Glucose [Mass/Vol] 130 mg/dL High 70-99 [facility] Comment on above: Performed By: #### L 501.5200 #### [facility] [address] [place], [address] Potassium [Moles/Vol] 4.7 mmol/L Normal 3.3-5.1 [facility] Comment on above: Result Comment: Hemo lysis present, Results??could be affected. ?? Performed By: #### L 501.5200 #### [facility] [address] [place], [address] Sodium [Moles/Vol] 137 mmol/L Normal 133-145 [facility] Comment on above: Performed By: #### L 501.5200 #### [facility] [address] [place], [address] Urea nitrogen [Mass/Vol] 23 mg/dL High 4-19 [facility] Comment on above: Performed By: #### L 501.5200 #### [facility] [address] [place], [address] CBC W/Diff, Automatedon 09-24 Absolute Lymph 0.47 X10 3/uL Low 0.83-4.51 [facility] Comment on above: Performed By: #### L 501.5200 #### [facility] [address] [place], [address] Absolute Neut 8.2 X10 3/uL High 2.0-7.7 [facility] Comment on above: Performed By: #### L 501.5200 #### [facility] [address] [place], [address] Basophils/100 WBC (Bld) 0.1 % Normal 0-1 [facility] Comment on above: Performed By: #### L 501.5200 #### [facility] [address] [place], [address] Eosinophils/100 WBC (Bld) 0.0 % Normal 0-5 [facility] Comment on above: Performed By: #### L 501.0 #### [facility] [address] [place], [address] Erythrocyte distribution width (RBC) [Ratio] 12.9 % Normal 11.6-14.6 [facility] Comment on above: Performed By: #### L 501.5200 #### [facility] [address] [place], [address] Hematocrit (Bld) [Volume fraction] 41.7 % Normal 37-47 [facility] Comment on above: Performed By: #### L 501.5200 #### [facility] [address] [place], [address] Hemoglobin (Bld) [Mass/Vol] 13.7 g/dL Normal 12.0-15.0 [facility] Comment on above: Performed By: #### L 501.5200 #### [facility] [address] [place], [address] IG% 0.600 Normal 0.0-0.9 [facility] Comment on above: Result Comment: IG% - Immature Granulocytes (promyelocytes, myelocytes and metamyelocytes) > 1% indicates that a LEFT SHIFT is Present. Performed By: #### L 501.5200 #### [facility] [address] [place], [address] Lymphocytes/100 WBC (Bld) 5.2 % Low 19-41 [facility] Comment on above: Performed By: #### L 501.5200 #### [facility] [address] [place], [address] MCH (RBC) [Entitic mass] 28.0 pg Normal 27.0-32.0 [facility] Comment on above: Performed By: #### L 501.5200 #### [facility] [address] [place], [address] MCHC (RBC) [Mass/Vol] 32.9 g/dL Normal 32-36 [facility] Comment on above: Performed By: #### L 501.5200 #### [facility] [address] [place], [address] MCV (RBC) [Entitic vol] 85.3 fL Normal 81-99 [facility] Comment on above: Performed By: #### L 501.5200 #### [facility] [address] [place], [address] Monocytes/100 WBC (Bld) 3.0 % Normal 0-10 [facility] Comment on above: Performed By: #### L 501.5200 #### [facility] [address] [place], [address] Neutrophils/100 WBC (Bld) 91.1 % High 47-70 [facility] Comment on above: Performed By: #### L 501.5200 #### [facility] [address] [place], [address] Nucleated RBC (Bld) [#/Vol] 0 10*3/uL Normal 0-5 [facility] Comment on above: Performed By: #### L 501.5200 #### [facility] [address] [place], [address] Platelet mean volume (Bld) [Entitic vol] 10.6 fL Normal 6.2-12.0 [facility] Comment on above: Performed By: #### L 501.5200 #### [facility] [address] [place], [address] Platelets (Bld) [#/Vol] 172 10*3/uL Normal 150-450 [facility] Comment on above: Performed By: #### L 501.5200 #### [facility] [address] [place], [address] RBC (Bld) [#/Vol] 4.89 10*6/uL Normal 4.2-5.4 [facility] Comment on above: Performed By: #### L 501.5200 #### [facility] [address] [place], [address] RDW SD 39.9 fl Normal 35.1-43.9 [facility] Comment on above: Performed By: #### L 501.5200 #### [facility] [address] [place], [address] WBC (Bld) [#/Vol] 9.0 10*3/uL Normal 4.4-11.0 [facility] Comment on above: Performed By: #### L 501.5200 #### [facility] [address] [place], [address] Electrocardiogram reportOrde red By: Junito Madrid on 10-05-2024 EKG study [facility] [address] [place] [address] 12 Lead EKG 10/04/24 1439 MR#: [id number] Acct: [id number] Name: DENIA GONZALEZ Rep #:[id number] : 1955 69 From: Junito contreras MD Attending Dr: Dr. Lynne [place] MD Status: ADM IN Ordering Dr: Lynne [place]fer MD Date: 10/04/24 Location: [facility] Sex: F C Admitted: 09/29/24 Test Reason [...] replaced Atrial fibrillation Confirmed by Junito Madrid ([id number]), assignment desk editor LEORA RESTREPO ([id number]) on 10/05/2024 8:34:43 AM Referred By: Confirmed By: Junito Madrid 10/05/24 0834 Date _ Junito Madrid MD CC: Dr. Yoseph Fall MD; Dr. Lynne [place] MD ~ Signed [facility] Work Phone: 12 Lead EKGon 10-04-2024 12 Lead EKG [facility] [address] [place] [address] 12 Lead EKG 10/04/24 1439 MR#: [id number] Acct: [id number] Name: DENIA GONZALEZ Rep #: [id number] : 1955 69 From: Junito Madrid MD Attending Dr: Dr. Lynne Schafer MD Status: AD M IN Ordering Dr: Lynne Schafer MD Date: 10/04/24 Location: [facility] Sex: F C Admitted: 09/29/24 Test Reason [...] Atrial fibrillation Confirmed by Junito Madrid ([id number]), assignment desk editor LEORA RESTREPO ([id number]) on 10/05/2024 8:34:43 AM Referred By: Confirmed By: Junito Madrid 10/05/24 0834 Date Junito Madrid MD CC: Dr. Yoseph Fall MD; Dr. Lynne Scha[place] MD Signed Normal [facility] Basic Metabolic Profile (BMP )on 10-04-2024 BUN/CRE 36.3 RATIO High 10-20 [facility] Comment on above: Performed By: #### L 506.0400, L500.2500, L100.0100 #### [facility] [address] [place], [address] Calcium [Mass/Vol] 8.7 mg/dL Normal 7.6-11.0 [facility] Comment on above: Performed By: #### L 506.0400, L500.2500, L100.0100 #### [facility] [address] [place], [address] Chloride [Moles/Vol] 94 mmol/L Low 98-108 [facility] Comment on above: Performed By: #### L 506.0400, L500.2500, L100.0100 #### [facility] [address] [place], [address] CO2 [Moles/Vol] 35.4 mmol/L High 21.0-32.0 [facility] Comment on above: Performed By: #### L 506.0400, L500.2500, L100.0100 #### [facility] [address] [place], [address] Creatinine [Mass/Vol] 0.58 mg/dL Low 0.70-1.20 [facility] Comment on above: Performed By: #### L 506.0400, L500.2500, L100.0100 #### [facility] [address] [place], [address] ECRCL 63.56 ml/min Normal 50-250 [facility] Comment on above: Performed By: #### L 506.0400, L500.2500, L100.0100 #### [facility] [address] [place], [address] GAP 8 Normal 5-15 [facility] Comment on above: Performed By: #### L 506.0400, L500.2500, L100.0100 #### [facility] [address] [place], [address] GFR/1.73 sq M.predicted among non-blacks MDRD (S/P/Bld) [Vol rate/Area] 98 mL/min/{1.73_m2} Normal >60 [facility] Comment on above: Result Comment: mL/m in/1.73m2 CKD-EPI Creatinine Equation (2020) Performed By: #### L 506.0400, L500.2500, L100.0100 #### [facility] [address] [place], [address] Glucose [Mass/Vol] 125 mg/dL High 70-99 [facility] Comment on above: Performed By: #### L 506.0400, L500.2500, L100.0100 #### [facility] [address] [place], [address] Potassium [Moles/Vol] 4.6 mmol/L Normal 3.3-5.1 [facility] Comment on above: Performed By: #### L 506.0400, L500.2500, L100.0100 #### [facility] [address] [place], [address] Sodium [Moles/Vol] 137 mmol/L Normal 133-145 [facility] Comment on above: Performed By: #### L 506.0400, L500.2500, L100.0100 #### [facility] [address] [place], [address] Urea nitrogen [Mass/Vol] 21 mg/dL High 4-19 [facility] Comment on above: Performed By: #### L 506.0400, L500.2500, L100.0100 #### [facility] [address] [place], [address] CBC W/Diff, Automatedon -04 26-2024 Absolute Lymph 0.46 X10 3/uL Low 0.83-4.51 [facility] Comment on above: Performed By: #### L 506.0400, L500.2500, L100.0100 #### [facility] [address] [place], [address] Absolute Neut 6.5 X10 3/uL Normal 2.0-7.7 [facility] Comment on above: Performed By: #### L 506.0400, L500.2500, L100.0100 #### [facility] [address] [place], [address] Basophils/100 WBC (Bld) 0.0 % Normal 0-1 [facility] Comment on above: Performed By: #### L 506.0400, L500.2500, L100.0100 #### [facility] [address] [place], [address] Eosinophils/100 WBC (Bld) 0.0 % Normal 0-5 [facility] Comment on above: Performed By: #### L 506.0400, L500.2500, L100.0100 #### [facility] [address] [place], [address] Erythrocyte distribution width (RBC) [Ratio] 12.9 % Normal 11.6-14.6 [facility] Comment on above: Performed By: #### L 506.0400, L500.2500, L100.0100 #### [facility] [address] [place], [address] Hematocrit (Bld) [Volume fraction] 41.4 % Normal 37-47 [facility] Comment on above: Performed By: #### L 506.0400, L500.2500, L100.0100 #### [facility] [address] [place], [address] Hemoglobin (Bld) [Mass/Vol] 13.9 g/dL Normal 12.0-15.0 [facility] Comment on above: Performed By: #### L 506.0400, L500.2500, L100.0100 #### [facility] [address] [place], [address] IG% 0.600 Normal 0.0-0.9 [facility] Comment on above: Result Comment: IG% - Immature Granulocytes (promyelocytes, myelocytes and metamyelocytes) > 1% indicates that a LEFT SHIFT is Present. Performed By: #### L 506.0400, L500.2500, L100.0100 #### [facility] [address] [place], [address] Lymphocytes/100 WBC (Bld) 6.4 % Low 19-41 [facility] Comment on above: Performed By: #### L 506.0400, L500.2500, L100.0100 #### [facility] [address] [place], [address] MCH (RBC) [Entitic mass] 28.6 pg Normal 27.0-32.0 [facility] Comment on above: Performed By: #### L 506.0400, L500.2500, L100.0100 #### [facility] [address] [place], [address] MCHC (RBC) [Mass/Vol] 33.6 g/dL Normal 32-36 [facility] Comment on above: Performed By: #### L 506.0400, L500.2500, L100.0100 #### [facility] [address] [place], [address] MCV (RBC) [Entitic vol] 85.2 fL Normal 81-99 [facility] Comment on above: Performed By: #### L 506.0400, L500.2500, L100.0100 #### [facility] [address] [place], [address] Monocytes/100 WBC (Bld) 2.9 % Normal 0-10 [facility] Comment on above: Performed By: #### L 506.0400, L500.2500, L100.0100 #### [facility] [address] [place], [address] Neutrophils/100 WBC (Bld) 90.1 % High 47-70 [facility] Comment on above: Performed By: #### L 506.0400, L500.2500, L100.0100 #### [facility] [address] [place], [address] Nucleated RBC (Bld) [#/Vol] 0 10*3/uL Normal 0-5 [facility] Comment on above: Performed By: #### L 506.0400, L500.2500, L100.0100 #### [facility] [address] [place], [address] Platelet mean volume (Bld) [Entitic vol] 9.9 fL Normal 6.2-12.0 [facility] Comment on above: Performed By: #### L 506.0400, L500.2500, L100.0100 #### [facility] [address] [place], [address] Platelets (Bld) [#/Vol] 160 10*3/uL Normal 150-450 [facility] Comment on above: Performed By: #### L 506.0400, L500.2500, L100.0100 #### [facility] [address] [place], [address] RBC (Bld) [#/Vol] 4.86 10*6/uL Normal 4.2-5.4 [facility] Comment on above: Performed By: #### L 506.0400, L500.2500, L100.0100 #### [facility] [address] [place], [address] RDW SD 39.8 fl Normal 35.1-43.9 [facility] Comment on above: Performed By: #### L 506.0400, L500.2500, L100.0100 #### [facility] [address] [place], [address] WBC (Bld) [#/Vol] 7.2 10*3/uL Normal 4.4-11.0 [facility] Comment on above: Performed By: #### L 506.0400, L500.2500, L100.0100 #### [facility] [address] [place], [address] Basic Metabolic Profile (BMP )on 10-03-2024 BUN/CRE 34.9 RATIO High 10-20 [facility] Comment on above: Performed By: #### L 506.0400, L500.2500, L100.0100 #### [facility] [address] [place], [address] Calcium [Mass/Vol] 8.8 mg/dL Normal 7.6-11.0 [facility] Comment on above: Performed By: #### L 506.0400, L500.2500, L100.0100 #### [facility] [address] [place], [address] Chloride [Moles/Vol] 93 mmol/L Low 98-108 [facility] Comment on above: Performed By: #### L 506.0400, L500.2500, L100.0100 #### [facility] [address] [place], [address] CO2 [Moles/Vol] 34.0 mmol/L High 21.0-32.0 [facility] Comment on above: Performed By: #### L 506.0400, L500.2500, L100.0100 #### [facility] [address] [place], [address] Creatinine [Mass/Vol] 0.65 mg/dL Low 0.70-1.20 [facility] Comment on above: Performed By: #### L 506.0400, L500.2500, L100.0100 #### [facility] [address] [place], [address] ECRCL 63.56 ml/min Normal 50-250 [facility] Comment on above: Performed By: #### L 506.0400, L500.2500, L100.0100 #### [facility] [address] [place], [address] GAP 9 Normal 5-15 [facility] Comment on above: Performed By: #### L 506.0400, L500.2500, L100.0100 #### [facility] [address] [place], [address] GFR/1.73 sq M.predicted among non-blacks MDRD (S/P/Bld) [Vol rate/Area] 95 mL/min/{1.73_m2} Normal >60 [facility] Comment on above: Result Comment: mL/m in/1.73m2 CKD-EPI Creatinine Equation (2020) Performed By: #### L 506.0400, L500.2500, L100.0100 #### [facility] [address] [place], [address] Glucose [Mass/Vol] 220 mg/dL High 70-99 [facility] Comment on above: Performed By: #### L 506.0400, L500.2500, L100.0100 #### [facility] [address] [place], [address] Potassium [Moles/Vol] 4.4 mmol/L Normal 3.3-5.1 [facility] Comment on above: Performed By: #### L 506.0400, L500.2500, L100.0100 #### [facility] [address] [place], [address] Sodium [Moles/Vol] 135 mmol/L Normal 133-145 [facility] Comment on above: Performed By: #### L 506.0400, L500.2500, L100.0100 #### [facility] [address] [place], [address] Urea nitrogen [Mass/Vol] 23 mg/dL High 4-19 [facility] Comment on above: Performed By: #### L 506.0400, L500.2500, L100.0100 #### [facility] [address] [place], [address] CBC W/Diff, Automatedon 06- 0-2024 Absolute Lymph 0.48 X10 3/uL Low 0.83-4.51 [facility] Comment on above: Performed By: #### L 506.0400, L500.2500, L100.0100 #### [facility] [address] [place], [address] Absolute Neut 8.5 X10 3/uL High 2.0-7.7 [facility] Comment on above: Performed By: #### L 506.0400, L500.2500, L100.0100 #### [facility] [address] [place], [address] Basophils/100 WBC (Bld) 0.1 % Normal 0-1 [facility] Comment on above: Performed By: #### L 506.0400, L500.2500, L100.0100 #### [facility] [address] [place], [address] Eosinophils/100 WBC (Bld) 0.0 % Normal 0-5 [facility] Comment on above: Performed By: #### L 506.0400, L500.2500, L100.0100 #### [facility] [address] [place], [address] Erythrocyte distribution width (RBC) [Ratio] 13.1 % Normal 11.6-14.6 [facility] Comment on above: Performed By: #### L 506.0400, L500.2500, L100.0100 #### [facility] [address] [place], [address] Hematocrit (Bld) [Volume fraction] 41.4 % Normal 37-47 [facility] Comment on above: Performed By: #### L 506.0400, L500.2500, L100.0100 #### [facility] [address] [place], [address] Hemoglobin (Bld) [Mass/Vol] 13.6 g/dL Normal 12.0-15.0 [facility] Comment on above: Performed By: #### L 506.0400, L500.2500, L100.0100 #### [facility] [address] [place], [address] IG% 0.300 Normal 0.0-0.9 [facility] Comment on above: Result Comment: IG% - Immature Granulocytes (promyelocytes, myelocytes and metamyelocytes) > 1% indicates that a LEFT SHIFT is Present. Performed By: #### L 506.0400, L500.2500, L100.0100 #### [facility] [address] [place], [address] Lymphocytes/100 WBC (Bld) 5.2 % Low 19-41 [facility] Comment on above: Performed By: #### L 506.0400, L500.2500, L100.0100 #### [facility] [address] [place], [address] MCH (RBC) [Entitic mass] 28.2 pg Normal 27.0-32.0 [facility] Comment on above: Performed By: #### L 506.0400, L500.2500, L100.0100 #### [facility] [address] [place], [address] MCHC (RBC) [Mass/Vol] 32.9 g/dL Normal 32-36 [facility] Comment on above: Performed By: #### L 506.0400, L500.2500, L100.0100 #### [facility] [address] [place], [address] MCV (RBC) [Entitic vol] 85.7 fL Normal 81-99 [facility] Comment on above: Performed By: #### L 506.0400, L500.2500, L100.0100 #### [facility] [address] [place], [address] Monocytes/100 WBC (Bld) 1.2 % Normal 0-10 [facility] Comment on above: Performed By: #### L 506.0400, L500.2500, L100.0100 #### [facility] [address] [place], [address] Neutrophils/100 WBC (Bld) 93.2 % High 47-70 [facility] Comment on above: Performed By: #### L 506.0400, L500.2500, L100.0100 #### [facility] [address] [place], [address] Nucleated RBC (Bld) [#/Vol] 0 10*3/uL Normal 0-5 [facility] Comment on above: Performed By: #### L 506.0400, L500.2500, L100.0100 #### [facility] [address] [place], [address] Platelet mean volume (Bld) [Entitic vol] 10.2 fL Normal 6.2-12.0 [facility] Comment on above: Performed By: #### L 506.0400, L500.2500, L100.0100 #### [facility] [address] [place], [address] Platelets (Bld) [#/Vol] 184 10*3/uL Normal 150-450 [facility] Comment on above: Performed By: #### L 506.0400, L500.2500, L100.0100 #### [facility] [address] [place], [address] RBC (Bld) [#/Vol] 4.83 10*6/uL Normal 4.2-5.4 [facility] Comment on above: Performed By: #### L 506.0400, L500.2500, L100.0100 #### [facility] [address] [place], [address] RDW SD 40.3 fl Normal 35.1-43.9 [facility] Comment on above: Performed By: #### L 506.0400, L500.2500, L100.0100 #### [facility] [address] [place], [address] WBC (Bld) [#/Vol] 9.2 10*3/uL Normal 4.4-11.0 [facility] Comment on above: Performed By: #### L 506.0400, L500.2500, L100.0100 #### [facility] [address] [place], [address] Electrocardiogram reportOrde red By: Junito Madrid on 10-03-2024 EKG study [facility] Cardiovascular Services [address] [place] [address] 12 Lead EKG 10/02/24 1903 MR#: [id number] Acct: [id number] Name: DENIA GONZALEZ Rep #:[id number] : 1955 69 From: Junito contreras MD Attending Dr: Dr. Lynne Schafer MD Status: ADM IN Ordering Dr: Junito Madrid MD Date: 10/02/24 Location: [facility] Sex: F C Admitted: 09/29/24 Test Reason [...] change was found Confirmed by Junito Madrid ([id number]), assignment desk editor LEORA RESTREPO ([id number]) on 10/03/2024 11:08:49 AM Referred By: Confirmed By: Junito Madrid 10/03/24 1108 Date _ Junito Madrid MD CC: Dr. Yoseph Fall MD; Dr. Junito Madrid MD; Dr. Lynne Schafer MD ~ Signed [facility] Work Phone: Respiratory Cultureon 2024 RESPC Microorganism [...] S Tobramycin Islt MODE <=1 S Normal [facility] Comment on above: Performed By: #### L 506.0400, L500.2500, L100.0100 #### [facility] [address] [place], [address] T4 Free Directon 10-03-2024 T4 FREE DIRECT 1.20 ng/dL Normal 0.76-1.46 [facility] Comment on above: Performed By: #### L 506.0400, L500.2500, L100.0100 #### [facility] [address] [place], [address] T4 freeOrdered By: Lynne soliz on 10-03-2024 Free T4 [Mass/Vol] 1.20 ng/dL 0.76-1.46 [facility] 12 Lead EKGon 10-02-2024 12 Lead EKG [facility] Cardiovascular Services [address] [place] [address] 12 Lead EKG 10/02/24 1903 MR#: [id number] Acct: [id number] Name: DENIA GONZALEZ Rep #: [id number] : 1955 69 From: Junito Madrid MD Attending Dr: Dr. Lynne Schafer MD Status: AD M IN Ordering Dr: Junito Madrid MD Date: 10/02/24 Location: [facility] Sex: F C Admitted: 09/29/24 Test Reason [...] was found Confirmed by Junito Madrid ([id number]), assignment desk editor LEORA RESTREPO ([id number]) on 10/03/2024 11:08:49 AM Referred By: Confirmed By: Junito Madrid 10/03/24 1108 Date Junito Madrid MD CC: Dr. Yoseph Fall MD; Dr. Junito Madrid MD; Dr. Lynne Schafer MD Signed Normal [facility] 12 Lead EKG [facility] Cardiovascular Services [address] [place] [address] 12 Lead EKG 10/02/24 0905 MR#: [id number] Acct: [id number] Name: DENIA GONZALEZ Rep #: [id number] : 1955 69 From: Junito Madrid MD Attending Dr: Dr. Lynne Schafer MD Status: AD M IN Ordering Dr: Lynne Schafer MD Date: 10/02/24 Location: [facility] Sex: F C Admitted: 09/29/24 Test Reason [...] IS UNCONFIRMED Confirmed by Junito Madrid ([id number]), assignment desk editor LEORA RESTREPO ([id number]) on 10/02/2024 10:43:05 AM Referred By: Confirmed By: Junito Madrid 10/02/24 104 Date Junito Madrid MD CC: Dr. Yoseph Fall MD; Dr. Lynne Schafer MD Signed Normal [facility] Basic Metabolic Profile (BMP )on 10-02-2024 BUN/CRE 42.5 RATIO High 10-20 [facility] Comment on above: Performed By: #### L 501.5200 #### [facility] [address] [place], [address] Calcium [Mass/Vol] 8.9 mg/dL Normal 7.6-11.0 [facility] Comment on above: Performed By: #### L 501.5200 #### [facility] [address] [place], [address] Chloride [Moles/Vol] 95 mmol/L Low 98-108 [facility] Comment on above: Performed By: #### L 501.5200 #### [facility] [address] [place], [address] CO2 [Moles/Vol] 34.5 mmol/L High 21.0-32.0 [facility] Comment on above: Performed By: #### L 501.5200 #### [facility] [address] [place], [address] Creatinine [Mass/Vol] 0.55 mg/dL Low 0.70-1.20 [facility] Comment on above: Performed By: #### L 501.5200 #### [facility] [address] [place], [address] ECRCL 63.64 ml/min Normal 50-250 [facility] Comment on above: Performed By: #### L 501.5200 #### [facility] [address] [place], [address] GAP 9 Normal 5-15 [facility] Comment on above: Performed By: #### L 501.5200 #### [facility] [address] [place], [address] GFR/1.73 sq M.predicted among non-blacks MDRD (S/P/Bld) [Vol rate/Area] 99 mL/min/{1.73_m2} Normal >60 [facility] Comment on above: Result Comment: mL/m in/1.73m2 CKD-EPI Creatinine Equation (2020) Performed By: #### L 501.5200 #### [facility] [address] [place], [address] Glucose [Mass/Vol] 113 mg/dL High 70-99 [facility] Comment on above: Performed By: #### L 501.5200 #### [facility] [address] [place], [address] Potassium [Moles/Vol] 4.4 mmol/L Normal 3.3-5.1 [facility] Comment on above: Performed By: #### L 501.5200 #### [facility] [address] [place], [address] Sodium [Moles/Vol] 138 mmol/L Normal 133-145 [facility] Comment on above: Performed By: #### L 501.5200 #### [facility] [address] [place], [address] Urea nitrogen [Mass/Vol] 23 mg/dL High 4-19 [facility] Comment on above: Performed By: #### L 501.5200 #### [facility] [address] [place], [address] CBC W/Diff, Automatedon 06-0 9-2024 Absolute Lymph 0.50 X10 3/uL Low 0.83-4.51 [facility] Comment on above: Performed By: #### L 501.5200 #### [facility] [address] [place], [address] Absolute Neut 7.3 X10 3/uL Normal 2.0-7.7 [facility] Comment on above: Performed By: #### L 501.5200 #### [facility] [address] [place], [address] Basophils/100 WBC (Bld) 0.1 % Normal 0-1 [facility] Comment on above: Performed By: #### L 501.5200 #### [facility] [address] [place], [address] Eosinophils/100 WBC (Bld) 0.0 % Normal 0-5 [facility] Comment on above: Performed By: #### L 501.5200 #### [facility] [address] [place], [address] Erythrocyte distribution width (RBC) [Ratio] 13.1 % Normal 11.6-14.6 [facility] Comment on above: Performed By: #### L 501.5200 #### [facility] [address] [place], [address] Hematocrit (Bld) [Volume fraction] 40.4 % Normal 37-47 [facility] Comment on above: Performed By: #### L 501.5200 #### [facility] [address] [place], [address] Hemoglobin (Bld) [Mass/Vol] 13.4 g/dL Normal 12.0-15.0 [facility] Comment on above: Performed By: #### L 501.5200 #### [facility] [address] [place], [address] IG% 0.700 Normal 0.0-0.9 [facility] Comment on above: Result Comment: IG% - Immature Granulocytes (promyelocytes, myelocytes and metamyelocytes) > 1% indicates that a LEFT SHIFT is Present. Performed By: #### L 501.5200 #### [facility] [address] [place], [address] Lymphocytes/100 WBC (Bld) 6.1 % Low 19-41 [facility] Comment on above: Performed By: #### L 501.5200 #### [facility] [address] [place], [address] MCH (RBC) [Entitic mass] 27.9 pg Normal 27.0-32.0 [facility] Comment on above: Performed By: #### L 501.5200 #### [facility] [address] [place], [address] MCHC (RBC) [Mass/Vol] 33.2 g/dL Normal 32-36 [facility] Comment on above: Performed By: #### L 501.5200 #### [facility] [address] [place], [address] MCV (RBC) [Entitic vol] 84.0 fL Normal 81-99 [facility] Comment on above: Performed By: #### L 501.5200 #### [facility] [address] [place], [address] Monocytes/100 WBC (Bld) 3.3 % Normal 0-10 [facility] Comment on above: Performed By: #### L 501.0 #### [facility] [address] [place], [address] Neutrophils/100 WBC (Bld) 89.8 % High 47-70 [facility] Comment on above: Performed By: #### L 501.5200 #### [facility] [address] [place], [address] Nucleated RBC (Bld) [#/Vol] 0 10*3/uL Normal 0-5 [facility] Comment on above: Performed By: #### L 501.5200 #### [facility] [address] [place], [address] Platelet mean volume (Bld) [Entitic vol] 9.7 fL Normal 6.2-12.0 [facility] Comment on above: Performed By: #### L 501.5200 #### [facility] [address] [place], [address] Platelets (Bld) [#/Vol] 172 10*3/uL Normal 150-450 [facility] Comment on above: Performed By: #### L 501.5200 #### [facility] [address] [place], [address] RBC (Bld) [#/Vol] 4.81 10*6/uL Normal 4.2-5.4 [facility] Comment on above: Performed By: #### L 501.5200 #### [facility] [address] [place], [address] RDW SD 39.8 fl Normal 35.1-43.9 [facility] Comment on above: Performed By: #### L 501.5200 #### [facility] [address] [place], [address] WBC (Bld) [#/Vol] 8.2 10*3/uL Normal 4.4-11.0 [facility] Comment on above: Performed By: #### L 501.5200 #### [facility] [address] [place], [address] Consultation - Cardiologyon 10-02-2024 Consultation - Cardiology [facility] Medical Records Department [address] [place] [address] Consultation - Cardiology 10/02/24 1000 MR#: [id number] Acct: [id number] Name: DENIA GONZALEZ Rep #: [id number] : 1955 69 From: Junito Madrid MD PCP: Dr. Yoseph Fall MD Status:ADM IN Location: [place] [address] Assessment Plan Assessment/Plan (1) Tachycardia: PLAN: Patient's [...] cardiovascular issues that she is aware of. [facility] Medical History RLS (restless legs syndrome) History of ETOH abuse Chronic hypoxic respiratory failure, on home oxygen therapy COPD (chronic obstructive pulmonary disease) Anxiety Depression Smoker Asthma Hypertension Migraines Medical History no medical history Home Medications ???Medication ???Instructions ???Recorded ???Last Taken ???Type albuterol sulfate 90 mcg/actuation 1 - 2 puff inhalation Q4H PRN TN N 04/18/13 09/23/14 History aerosol inhaler (Ventolin [...] Diskus) Ro (more content not included)... Normal [facility] Echo Completeon 10-02-2024 Echo [facility] [address] [place] [address] Echo Complete 10/02/24 1337 MR#: [id number] Acct: [id number] Name: DENIA GONZALEZ Rep #: [id number] : 1955 69 From: Dillon Lopez MD Attending Dr: Dr. Lynne Schafer MD Status: AD M IN Ordering Dr: Lynne Schafer MD Date: 10/02/24 Location: [facility] Sex: F C Admitted: 09/29/24 Reason For [...] MD Date Dictated: 10/02/241336 Date Transcribed: 10/02/241423 Material Control Specialist: Signed Normal [facility] Echocardiogram study reportO rdered By: Dillon Lopez on 10-02-2024 Study report [facility] [address] [place] [address] Echo Complete 10/02/241336 MR#: [id number] Acct: [id number] Name: DENIA GONZALEZ Rep #:[id number] : 1955 69 From: Dillon Lopez MD Attending Dr: Dr. Lynne Schafer MD Status: ADM IN Ordering Dr: Lynne Schafer MD Date: 10/02/24 Location: [facility] Sex: F C Admitted: 09/29/24 Reason For [...] MD Yoseph Fall Performed By: Saray Torrez [facility] 10/02/24 1424 Date _ Dillon Lopez MD CC: Dr. Yoseph Fall MD; Dr. Lynne Schafer MD ~ Date Dictated: 10/02/24 1337 Date Transcribed: 10/02/24 1424 Material Control Specialist: Signed [facility] Work Phone: Electrocardiogram reportOrde red By: Junito Madrid on 10-02-2024 EKG study [facility] Cardiovascular Services [address] [place] [address] 12 Lead EKG 10/02/24 09 MR#: [id number] Acct: [id number] Name: DENIA GONZALEZ Rep #:[id number] : 1955 69 From: Junito contreras MD Attending Dr: Dr. Lynne Schafer MD Status: ADM IN Ordering Dr: Lynne Schafer MD Date: 10/02/24 Location: [facility] Sex: F C Admitted: 09/29/24 Test Reason [...] DATA IS UNCONFIRMED Confirmed by Junito Madrid ([id number]), assignment desk editor LEORA RESTREPO ([id number]) on 10/02/2024 10:43:05 AM Referred By: Confirmed By: Junito Madrid 10/02/24 1043 Date _ Junito Madrid MD CC: Dr. Yoseph Fall MD; Dr. Lynne Schafer MD ~ Signed [facility] Work Phone: Gram Stainon 10-02-2024 GS Acceptable Specimen? Yes (<25 Epithelial cells per/lpf) Gram Stain 2+ Gram positive cocci 2+ Gram positive rods 2+ Gram negative rods Normal [facility] Comment on above: Performed By: #### L 506.7290, L500.2500, L100.0100 #### [facility] [address] [place], [address] L499.0042on 10-02-2024 Trop T High Sen 23 ng/L High <=14 [facility] Comment on above: Performed By: #### L 501.0093, L501.5200 #### [facility] [address] [place], [address] L499.0043on 10-02-2024 Trop T High Sen 24 ng/L High <=14 [facility] Comment on above: Performed By: #### L 501.5200 #### [facility] [address] [place], [address] L501.4021on 10-02-2024 Trop T High Sen 23 ng/L High <=14 [facility] Comment on above: Performed By: #### L 506.0400, L500.2500, L100.0100 #### [facility] [address] [place], [address] Magnesiumon 10-02-2024 Magnesium [Mass/Vol] 2.1 mg/dL Normal 1.5-2.2 [facility] Comment on above: Performed By: #### L 501.9520, L501.5200 #### [facility] [address] [place], [address] TSH DL <= 0.005 mIU/L QnOrde red By: Lynne Schafer on 10-02-2024 TSH Qn 0.281 uIU/mL Low 0.300-4.200 [facility] Thyroid Stim Hormone (TSH)on 10-02-2024 TSH 0.281 uIU/mL Low 0.300-4.200 [facility] Comment on above: Performed By: #### L 501.9520, L501.5200 #### [facility] [address] [place], [address] Troponin T.cardiac [Mass/vol ume] in Serum or Plasma by High sensitivity methodOrdered By: Lynne Schafer on 10-02-2024 Troponin T.cardiac High sensitivity method [Mass/Vol] 24 ng/L High <14 [facility] Troponin T.cardiac High sensitivity method [Mass/Vol] 23 ng/L High <14 [facility] Troponin T.cardiac High sensitivity method [Mass/Vol] 23 ng/L High <14 [facility] Basic Metabolic Profile (BMP )on 10-01-2024 BUN/CRE 35.9 RATIO High 10-20 [facility] Comment on above: Performed By: #### L 506.0400, L500.2500, L100.0100 #### [facility] [address] [place], [address] Calcium [Mass/Vol] 9.2 mg/dL Normal 7.6-11.0 [facility] Comment on above: Performed By: #### L 506.0400, L500.2500, L100.0100 #### [facility] [address] [place], [address] Chloride [Moles/Vol] 94 mmol/L Low 98-108 [facility] Comment on above: Performed By: #### L 506.0400, L500.2500, L100.0100 #### [facility] [address] [place], [address] CO2 [Moles/Vol] 34.2 mmol/L High 21.0-32.0 [facility] Comment on above: Performed By: #### L 506.0400, L500.2500, L100.0100 #### [facility] [address] [place], [address] Creatinine [Mass/Vol] 0.59 mg/dL Low 0.70-1.20 [facility] Comment on above: Performed By: #### L 506.0400, L500.2500, L100.0100 #### [facility] [address] [place], [address] ECRCL 65.06 ml/min Normal 50-250 [facility] Comment on above: Performed By: #### L 506.0400, L500.2500, L100.0100 #### [facility] [address] [place], [address] GAP 10 Normal 5-15 [facility] Comment on above: Performed By: #### L 506.0400, L500.2500, L100.0100 #### [facility] [address] [place], [address] GFR/1.73 sq M.predicted among non-blacks MDRD (S/P/Bld) [Vol rate/Area] 97 mL/min/{1.73_m2} Normal >60 [facility] Comment on above: Result Comment: mL/m in/1.73m2 CKD-EPI Creatinine Equation (2020) Performed By: #### L 506.0400, L500.2500, L100.0100 #### [facility] [address] [place], [address] Glucose [Mass/Vol] 111 mg/dL High 70-99 [facility] Comment on above: Performed By: #### L 506.0400, L500.2500, L100.0100 #### [facility] [address] [place], [address] Potassium [Moles/Vol] 4.1 mmol/L Normal 3.3-5.1 [facility] Comment on above: Performed By: #### L 506.0400, L500.2500, L100.0100 #### [facility] [address] [place], [address] Sodium [Moles/Vol] 138 mmol/L Normal 133-145 [facility] Comment on above: Performed By: #### L 506.0400, L500.2500, L100.0100 #### [facility] [address] [place], [address] Urea nitrogen [Mass/Vol] 21 mg/dL High 4-19 [facility] Comment on above: Performed By: #### L 506.0400, L500.2500, L100.0100 #### [facility] [address] [place], [address] CBC W/Diff, Automatedon 06-0 8-2024 Absolute Lymph 0.58 X10 3/uL Low 0.83-4.51 [facility] Comment on above: Performed By: #### L 506.0400, L500.2500, L100.0100 #### [facility] [address] [place], [address] Absolute Neut 7.6 X10 3/uL Normal 2.0-7.7 [facility] Comment on above: Performed By: #### L 506.0400, L500.2500, L100.0100 #### [facility] [address] [place], [address] Basophils/100 WBC (Bld) 0.1 % Normal 0-1 [facility] Comment on above: Performed By: #### L 506.0400, L500.2500, L100.0100 #### [facility] [address] [place], [address] Eosinophils/100 WBC (Bld) 0.0 % Normal 0-5 [facility] Comment on above: Performed By: #### L 506.0400, L500.2500, L100.0100 #### [facility] [address] [place], [address] Erythrocyte distribution width (RBC) [Ratio] 12.9 % Normal 11.6-14.6 [facility] Comment on above: Performed By: #### L 506.0400, L500.2500, L100.0100 #### [facility] [address] [place], [address] Hematocrit (Bld) [Volume fraction] 40.9 % Normal 37-47 [facility] Comment on above: Performed By: #### L 506.0400, L500.2500, L100.0100 #### [facility] [address] [place], [address] Hemoglobin (Bld) [Mass/Vol] 13.5 g/dL Normal 12.0-15.0 [facility] Comment on above: Performed By: #### L 506.0400, L500.2500, L100.0100 #### [facility] [address] [place], [address] IG% 0.500 Normal 0.0-0.9 [facility] Comment on above: Result Comment: IG% - Immature Granulocytes (promyelocytes, myelocytes and metamyelocytes) > 1% indicates that a LEFT SHIFT is Present. Performed By: #### L 506.0400, L500.2500, L100.0100 #### [facility] [address] [place], [address] Lymphocytes/100 WBC (Bld) 6.8 % Low 19-41 [facility] Comment on above: Performed By: #### L 506.0400, L500.2500, L100.0100 #### [facility] [address] [place], [address] MCH (RBC) [Entitic mass] 27.6 pg Normal 27.0-32.0 [facility] Comment on above: Performed By: #### L 506.0400, L500.2500, L100.0100 #### [facility] [address] [place], [address] MCHC (RBC) [Mass/Vol] 33.0 g/dL Normal 32-36 [facility] Comment on above: Performed By: #### L 506.0400, L500.2500, L100.0100 #### [facility] [address] [place], [address] MCV (RBC) [Entitic vol] 83.5 fL Normal 81-99 [facility] Comment on above: Performed By: #### L 506.0400, L500.2500, L100.0100 #### [facility] [address] [place], [address] Monocytes/100 WBC (Bld) 3.6 % Normal 0-10 [facility] Comment on above: Performed By: #### L 506.0400, L500.2500, L100.0100 #### [facility] [address] [place], [address] Neutrophils/100 WBC (Bld) 89.0 % High 47-70 [facility] Comment on above: Performed By: #### L 506.0400, L500.2500, L100.0100 #### [facility] [address] [place], [address] Nucleated RBC (Bld) [#/Vol] 0 10*3/uL Normal 0-5 [facility] Comment on above: Performed By: #### L 506.0400, L500.2500, L100.0100 #### [facility] [address] [place], [address] Platelet mean volume (Bld) [Entitic vol] 9.8 fL Normal 6.2-12.0 [facility] Comment on above: Performed By: #### L 506.0400, L500.2500, L100.0100 #### [facility] [address] [place], [address] Platelets (Bld) [#/Vol] 176 10*3/uL Normal 150-450 [facility] Comment on above: Performed By: #### L 506.0400, L500.2500, L100.0100 #### [facility] [address] [place], [address] RBC (Bld) [#/Vol] 4.90 10*6/uL Normal 4.2-5.4 [facility] Comment on above: Performed By: #### L 506.0400, L500.2500, L100.0100 #### [facility] [address] [place], [address] RDW SD 39.2 fl Normal 35.1-43.9 [facility] Comment on above: Performed By: #### L 506.0400, L500.2500, L100.0100 #### [facility] [address] [place], [address] WBC (Bld) [#/Vol] 8.5 10*3/uL Normal 4.4-11.0 [facility] Comment on above: Performed By: #### L 506.0400, L500.2500, L100.0100 #### [facility] [address] [place], [address] Bilirubin, totalOrdered By: Dionne Porter on 09-30-2024 Bilirubin [Mass/Vol] 0.27 mg/dL 0.00-1.30 [facility] Comment on above: Performed By: #### L 501.9520, L501.5200 #### [facility] [address] [place], [address] CBC W/Diff, Automatedon Absolute Lymph 0.61 X10 3/uL Low 0.83-4.51 [facility] Comment on above: Performed By: #### L 501.9520, L501.5200 #### [facility] [address] [place], [address] Absolute Neut 6.8 X10 3/uL Normal 2.0-7.7 [facility] Comment on above: Performed By: #### L 501.9520, L501.5200 #### [facility] [address] [place], [address] Basophils/100 WBC (Bld) 0.0 % Normal 0-1 [facility] Comment on above: Performed By: #### L 501.9520, L501.5200 #### [facility] [address] [place], [address] Eosinophils/100 WBC (Bld) 0.0 % Normal 0-5 [facility] Comment on above: Performed By: #### L 501.9520, L501.5200 #### [facility] [address] [place], [address] Erythrocyte distribution width (RBC) [Ratio] 13.0 % Normal 11.6-14.6 [facility] Comment on above: Performed By: #### L 501.9520, L501.5200 #### [facility] [address] [place], [address] Hematocrit (Bld) [Volume fraction] 38.4 % Normal 37-47 [facility] Comment on above: Performed By: #### L 501.9520, L501.5200 #### [facility] [address] [place], [address] Hemoglobin (Bld) [Mass/Vol] 12.6 g/dL Normal 12.0-15.0 [facility] Comment on above: Performed By: #### L 501.9520, L501.5200 #### [facility] [address] [place], [address] IG% 0.400 Normal 0.0-0.9 [facility] Comment on above: Result Comment: IG% - Immature Granulocytes (promyelocytes, myelocytes and metamyelocytes) > 1% indicates that a LEFT SHIFT is Present. Performed By: #### L 501.9520, L501.5200 #### [facility] [address] [place], [address] Lymphocytes/100 WBC (Bld) 8.0 % Low 19-41 [facility] Comment on above: Performed By: #### L 501.9520, L501.5200 #### [facility] [address] [place], [address] MCH (RBC) [Entitic mass] 27.9 pg Normal 27.0-32.0 [facility] Comment on above: Performed By: #### L 501.9520, L501.5200 #### [facility] [address] [place], [address] MCHC (RBC) [Mass/Vol] 32.8 g/dL Normal 32-36 [facility] Comment on above: Performed By: #### L 501.9520, L501.5200 #### [facility] [address] [place], [address] MCV (RBC) [Entitic vol] 85.0 fL Normal 81-99 [facility] Comment on above: Performed By: #### L 501.9520, L501.5200 #### [facility] [address] [place], [address] Monocytes/100 WBC (Bld) 3.5 % Normal 0-10 [facility] Comment on above: Performed By: #### L 501.9520, L501.5200 #### [facility] [address] [place], [address] Neutrophils/100 WBC (Bld) 88.1 % High 47-70 [facility] Comment on above: Performed By: #### L 501.9520, L501.5200 #### [facility] [address] [place], [address] Nucleated RBC (Bld) [#/Vol] 0 10*3/uL Normal 0-5 [facility] Comment on above: Performed By: #### L 501.9520, L501.5200 #### [facility] [address] [place], [address] Platelet mean volume (Bld) [Entitic vol] 10.0 fL Normal 6.2-12.0 [facility] Comment on above: Performed By: #### L 501.9520, L501.5200 #### [facility] [address] [place], [address] Platelets (Bld) [#/Vol] 177 10*3/uL Normal 150-450 [facility] Comment on above: Performed By: #### L 501.9520, L501.5200 #### [facility] [address] [place], [address] RBC (Bld) [#/Vol] 4.52 10*6/uL Normal 4.2-5.4 [facility] Comment on above: Performed By: #### L 501.9520, L501.5200 #### [facility] [address] [place], [address] RDW SD 39.9 fl Normal 35.1-43.9 [facility] Comment on above: Performed By: #### L 501.9520, L501.5200 #### [facility] [address] [place], [address] WBC (Bld) [#/Vol] 7.7 10*3/uL Normal 4.4-11.0 [facility] Comment on above: Performed By: #### L 501.9520, L501.5200 #### [facility] [address] [place], [address] Comprehensive Metabolic Prof flzulema 09-30-2024 ALK PHOS 60 U/L Normal 35-104 [facility] Comment on above: Performed By: #### L 501.9520, L501.5200 #### [facility] [address] [place], [address] BUN/CRE 32.5 RATIO High 10-20 [facility] Comment on above: Performed By: #### L 501.9520, L501.5200 #### [facility] [address] [place], [address] Calcium [Mass/Vol] 9.0 mg/dL Normal 7.6-11.0 [facility] Comment on above: Performed By: #### L 501.9520, L501.5200 #### [facility] [address] [place], [address] Chloride [Moles/Vol] 95 mmol/L Low 98-108 [facility] Comment on above: Performed By: #### L 501.9520, L501.5200 #### [facility] [address] [place], [address] CO2 [Moles/Vol] 33.3 mmol/L High 21.0-32.0 [facility] Comment on above: Performed By: #### L 501.9520, L501.5200 #### [facility] [address] [place], [address] Creatinine [Mass/Vol] 0.58 mg/dL Low 0.70-1.20 [facility] Comment on above: Performed By: #### L 501.9520, L501.5200 #### [facility] [address] [place], [address] ECRCL 65.06 ml/min Normal 50-250 [facility] Comment on above: Performed By: #### L 501.9520, L501.5200 #### [facility] [address] [place], [address] GAP 10 Normal 5-15 [facility] Comment on above: Performed By: #### L 501.9520, L501.5200 #### [facility] [address] [place], [address] GFR/1.73 sq M.predicted among non-blacks MDRD (S/P/Bld) [Vol rate/Area] 98 mL/min/{1.73_m2} Normal >60 [facility] Comment on above: Result Comment: mL/m in/1.73m2 CKD-EPI Creatinine Equation (2020) Performed By: #### L 501.9520, L501.5200 #### [facility] [address] [place], [address] Glucose [Mass/Vol] 127 mg/dL High 70-99 [facility] Comment on above: Performed By: #### L 501.9520, L501.5200 #### [facility] [address] [place], [address] Potassium [Moles/Vol] 4.6 mmol/L Normal 3.3-5.1 [facility] Comment on above: Result Comment: Hemo lysis present, Results??could be affected. ?? Performed By: #### L 501.9520, L501.5200 #### [facility] [address] [place], [address] Sodium [Moles/Vol] 138 mmol/L Normal 133-145 [facility] Comment on above: Performed By: #### L 501.9520, L501.5200 #### [facility] [address] [place], [address] T PROT 6.3 g/dL Normal 5.9-8.4 [facility] Comment on above: Performed By: #### L 501.9520, L501.5200 #### [facility] [address] [place], [address] Urea nitrogen [Mass/Vol] 19 mg/dL Normal 4-19 [facility] Comment on above: Performed By: #### L 501.9520, L501.5200 #### [facility] [address] [place], [address] Comprehensive Metabolic Prof ilOrdered By: Dionne Porter on 09-30-2024 AST [Catalytic activity/Vol] 17 U/L <32 [facility] Comment on above: Hemolysis present, R esults could be affected. Result Comment: Hemo lysis present, Results??could be affected. ?? Performed By: #### L 501.9520, L501.5200 #### [facility] [address] [place], [address] Serum globulin measurementOr dered By: Dionne Porter on 09-30-2024 Globulin (S) [Mass/Vol] 2.5 g/dL 2.2-4.2 [facility] Comment on above: Performed By: #### L 501.9520, L501.5200 #### [facility] [address] [place], [address] Serum or plasma alanine retana otransferase (ALT) measurementOrdered By: Dionne Porter on 09-30-2024 ALT [Catalytic activity/Vol] 9 U/L <35 [facility] Comment on above: Performed By: #### L 501.9520, L501.5200 #### [facility] [address] [place], [address] Serum or plasma albumin kadi urement (mass/volume)Ordered By: Dionne Porter on 09-30-2024 Albumin [Mass/Vol] 3.8 g/dL 3.4-4.8 [facility] Comment on above: Performed By: #### L 501.9520, L501.5200 #### [facility] [address] [place], [address] Serum or plasma albumin/glob ulin mass ratioOrdered By: Dionne Porter on 09-30-2024 Albumin/Globulin [Mass ratio] 1.5 {ratio} 0.9-2.4 [facility] Comment on above: Performed By: #### L 501.9520, L501.5200 #### [facility] [address] [place], [address] Serum or plasma alkaline renetta sphatase measurementOrdered By: Dionne Porter on 09-30-2024 ALP [Catalytic activity/Vol] 60 U/L 35-104 [facility] Total proteinOrdered By: Arthur Porter on 09-30-2024 Protein [Mass/Vol] 6.3 g/dL 5.9-8.4 [facility] Absolute lymphocyte countOrd ered By: Riley Jeff on 09-29-2024 Lymphocytes Auto (Unsp spec) [#/Vol] 1.40 10*3/uL 0.83-4.51 [facility] Absolute neutrophil countOrd ered By: Riley Jeff on 09-29-2024 Neutrophils (Bld) [#/Vol] 8.4 10*3/uL High 2.0-7.7 [facility] Anion gap in Serum or Plasma Ordered By: Riley Jeff on 09-29-2024 Anion gap [Moles/Vol] 10 mmol/L 5-15 [facility] Assessment of wrist artery p atency prior to arterial punctureOrdered By: Riley Jeff on 09-29-2024 Arterial patency Wrist artery --pre arterial puncture Positive [facility] Automated lymphocyte count a s percentage of total leukocytesOrdered By: Riley Jeff on 09-29-2024 Lymphocytes/100 WBC Auto (Unsp spec) 13.2 % Low 19-41 [facility] BUN/creatinine ratioOrdered By: Riley Jeff on 09-29-2024 Urea nitrogen/Creatinine [Mass ratio] 25.5 mg/mg High 10-20 [facility] Basic Metabolic Profile (BMP )on 09-29-2024 BUN/CRE 25.5 RATIO High 10-20 [facility] Comment on above: Performed By: #### L 506.0400, L500.2500, L100.0100 #### [facility] [address] [place], [address] Calcium [Mass/Vol] 8.9 mg/dL Normal 7.6-11.0 [facility] Comment on above: Performed By: #### L 506.0400, L500.2500, L100.0100 #### [facility] [address] [place], [address] Chloride [Moles/Vol] 93 mmol/L Low 98-108 [facility] Comment on above: Performed By: #### L 506.0400, L500.2500, L100.0100 #### [facility] [address] [place], [address] CO2 [Moles/Vol] 33.1 mmol/L High 21.0-32.0 [facility] Comment on above: Performed By: #### L 506.0400, L500.2500, L100.0100 #### [facility] [address] [place], [address] Creatinine [Mass/Vol] 0.70 mg/dL Normal 0.70-1.20 [facility] Comment on above: Performed By: #### L 506.0400, L500.2500, L100.0100 #### [facility] [address] [place], [address] ECRCL 64.35 ml/min Normal 50-250 [facility] Comment on above: Performed By: #### L 506.0400, L500.2500, L100.0100 #### [facility] [address] [place], [address] GAP 10 Normal 5-15 [facility] Comment on above: Performed By: #### L 506.0400, L500.2500, L100.0100 #### [facility] [address] [place], [address] GFR/1.73 sq M.predicted among non-blacks MDRD (S/P/Bld) [Vol rate/Area] 94 mL/min/{1.73_m2} Normal >60 [facility] Comment on above: Result Comment: mL/m in/1.73m2 CKD-EPI Creatinine Equation (2020) Performed By: #### L 506.0400, L500.2500, L100.0100 #### [facility] [address] [place], [address] Glucose [Mass/Vol] 129 mg/dL High 70-99 [facility] Comment on above: Performed By: #### L 506.0400, L500.2500, L100.0100 #### [facility] [address] [place], [address] Potassium [Moles/Vol] 4.4 mmol/L Normal 3.3-5.1 [facility] Comment on above: Performed By: #### L 506.0400, L500.2500, L100.0100 #### [facility] [address] [place], [address] Sodium [Moles/Vol] 136 mmol/L Normal 133-145 [facility] Comment on above: Performed By: #### L 506.0400, L500.2500, L100.0100 #### [facility] [address] [place], [address] Urea nitrogen [Mass/Vol] 18 mg/dL Normal 4-19 [facility] Comment on above: Performed By: #### L 506.0400, L500.2500, L100.0100 #### [facility] [address] [place], [address] Basophil percentageOrdered B y: Riley Jeff on 09-29-2024 Basophils/100 WBC (Bld) 0.2 % 0-1 [facility] Positive Normal [facility] Comment on above: Performed By: #### L 506.0400, L500.2500, L100.0100 #### [facility] [address] [place], [address] Base excess Calc (Bld) [Moles/Vol] 19 mmol/L High -2 to +2 [facility] Comment on above: Performed By: #### L 506.0400, L500.2500, L100.0100 #### [facility] [address] [place], [address] Blood Gas Type ART Normal [facility] Comment on above: Performed By: #### L 506.0400, L500.2500, L100.0100 #### [facility] [address] [place], [address] CO2 [Moles/Vol] 47 mmol/L Normal [facility] Comment on above: Performed By: #### L 506.0400, L500.2500, L100.0100 #### [facility] [address] [place], [address] FI02 3.0 Normal [facility] Comment on above: Performed By: #### L 506.0400, L500.2500, L100.0100 #### [facility] [address] [place], [address] HCO3 (Bld) [Moles/Vol] 44.5 mmol/L High 22-26 [facility] Comment on above: Performed By: #### L 506.0400, L500.2500, L100.0100 #### [facility] [address] [place], [address] Mode Not entered Normal [facility] Comment on above: Performed By: #### L 506.0400, L500.2500, L100.0100 #### [facility] [address] [place], [address] O2 Delivery Dev Cannula Normal [facility] Comment on above: Performed By: #### L 506.0400, L500.2500, L100.0100 #### [facility] [address] [place], [address] pCO2 79.5 mmHg Invalid Interpretation Code 35-45 [facility] Comment on above: Performed By: #### L 506.0400, L500.2500, L100.0100 #### [facility] [address] [place], [address] pH (Bld) 7.36 [pH] Normal 7.35-7.45 [facility] Comment on above: Performed By: #### L 506.0400, L500.2500, L100.0100 #### [facility] [address] [place], [address] PO2 83 mmHG Normal 75-100 [facility] Comment on above: Performed By: #### L 506.0400, L500.2500, L100.0100 #### [facility] [address] [place], [address] Read Back By Yes Normal [facility] [facility] Comment on above: Performed By: #### L 506.0400, L500.2500, L100.0100 #### [facility] [address] [place], [address] Results To Andes [facility] Comment on above: Performed By: #### L 506.0400, L500.2500, L100.0100 #### [facility] [address] [place], [address] SITE L Radial Normal [facility] Comment on above: Performed By: #### L 506.0400, L500.2500, L100.0100 #### [facility] [address] [place], [address] SO2 95 Normal 95-99 [facility] Comment on above: Performed By: #### L 506.0400, L500.2500, L100.0100 #### [facility] [address] [place], [address] Time Given 04:48:[address] [facility] Comment on above: Performed By: #### L 506.0400, L500.2500, L100.0100 #### [facility] [address] [place], [address] Blood base excess determinat ionOrdered By: Riley Jeff on 09-29-2024 Base excess Calc (BldV) [Moles/Vol] 19 mmol/L High -2-2 [facility] Blood bicarbonate measuremen tOrdered By: Riley Jeff on 09-29-2024 HCO3 (Bld) [Moles/Vol] 44.5 mmol/L High 22-26 [facility] CBC W/Diff, Automatedon 06-0 6-2024 Absolute Lymph 1.40 X10 3/uL Normal 0.83-4.51 [facility] Comment on above: Performed By: #### L 100.0100 #### [facility] [address] [place], [address] Absolute Neut 8.4 X10 3/uL High 2.0-7.7 [facility] Comment on above: Performed By: #### L 100.0100 #### [facility] [address] [place], [address] Basophils/100 WBC (Bld) 0.2 % Normal 0-1 [facility] Comment on above: Performed By: #### L 100.0100 #### [facility] [address] [place], [address] Eosinophils/100 WBC (Bld) 0.7 % Normal 0-5 [facility] Comment on above: Performed By: #### L 100.0100 #### [facility] [address] [place], [address] Erythrocyte distribution width (RBC) [Ratio] 13.1 % Normal 11.6-14.6 [facility] Comment on above: Performed By: #### L 100.0100 #### [facility] [address] [place], [address] Hematocrit (Bld) [Volume fraction] 41.7 % Normal 37-47 [facility] Comment on above: Performed By: #### L 100.0100 #### [facility] [address] [place], [address] Hemoglobin (Bld) [Mass/Vol] 13.6 g/dL Normal 12.0-15.0 [facility] Comment on above: Performed By: #### L 100.0100 #### [facility] [address] [place], [address] IG% 0.500 Normal 0.0-0.9 [facility] Comment on above: Result Comment: IG% - Immature Granulocytes (promyelocytes, myelocytes and metamyelocytes) > 1% indicates that a LEFT SHIFT is Present. Performed By: #### L 100.0100 #### [facility] [address] [place], [address] Lymphocytes/100 WBC (Bld) 13.2 % Low 19-41 [facility] Comment on above: Performed By: #### L 100.0100 #### [facility] [address] [place], [address] MCH (RBC) [Entitic mass] 27.9 pg Normal 27.0-32.0 [facility] Comment on above: Performed By: #### L 100.0100 #### [facility] [address] [place], [address] MCHC (RBC) [Mass/Vol] 32.6 g/dL Normal 32-36 [facility] Comment on above: Performed By: #### L 100.0100 #### [facility] [address] [place], [address] MCV (RBC) [Entitic vol] 85.5 fL Normal 81-99 [facility] Comment on above: Performed By: #### L 100.0100 #### [facility] [address] [place], [address] Monocytes/100 WBC (Bld) 6.9 % Normal 0-10 [facility] Comment on above: Performed By: #### L 100.0100 #### [facility] [address] [place], [address] Neutrophils/100 WBC (Bld) 78.5 % High 47-70 [facility] Comment on above: Performed By: #### L 100.0100 #### [facility] [address] [place], [address] Nucleated RBC (Bld) [#/Vol] 0 10*3/uL Normal 0-5 [facility] Comment on above: Performed By: #### L 100.0100 #### [facility] [address] [place], [address] Platelet mean volume (Bld) [Entitic vol] 9.7 fL Normal 6.2-12.0 [facility] Comment on above: Performed By: #### L 100.0100 #### [facility] [address] [place], [address] Platelets (Bld) [#/Vol] 198 10*3/uL Normal 150-450 [facility] Comment on above: Performed By: #### L 100.0100 #### [facility] [address] [place], [address] RBC (Bld) [#/Vol] 4.88 10*6/uL Normal 4.2-5.4 [facility] Comment on above: Performed By: #### L 100.0100 #### [facility] [address] [place], [address] RDW SD 40.6 fl Normal 35.1-43.9 [facility] Comment on above: Performed By: #### L 100.0100 #### [facility] [address] [place], [address] WBC (Bld) [#/Vol] 10.6 10*3/uL Normal 4.4-11.0 [facility] Comment on above: Performed By: #### L 100.0100 #### [facility] [address] [place], [address] Carbon dioxide, total [Moles /volume] in Central venous bloodOrdered By: Riley Jeff on 09-29-2024 CO2 [Moles/Vol] 33.1 mmol/L High 21.0-32.0 [facility] Chest PA and Lateralon 09-29 Chest PA and Lateral [facility] Imaging Services [address] [place] [address] Chest PA and Lateral MR#: [id number] Acct: [id number] Name: DENIA GONZALEZ Rep #: [id number] : 1955 F 69 From: Ghulam Lindquist MD PCP: Dr. Yoseph Fall MD Status: REG ER Study: Chest PA and Lateral Date of Exam: 09/29/24 Exam# [id number] Ordering Dr: Riley Jeff DO PROCEDURE: CHEST [...] of an acute cardiopulmonary abnormality. Reading Location: [id number] CC: Dr. Yoseph Fall MD; Riley Jeff DO Material Control Specialist: Signed Normal [facility] Chloride assayOrdered By: Silvia Jeff on 09-29-2024 Chloride [Moles/Vol] 93 mmol/L Low 98-108 [facility] Emergency Department Summary on 09-29-2024 Emergency Department Summary [facility] Medical Records Department [address] [place] [address] Emergency Department Summary 09/29/24 MR#: [id number] Acct: [id number] Name: DENIA GONZALEZ Rep #: [id number] : 1955 69 From: Riley Jeff DO [...] Secondary to that she presents for evaluation [facility] Medical History RLS (restless legs syndrome) History of ETOH abuse Chronic hypoxic respiratory failure, on home oxygen therapy COPD (chronic obstructive pulmonary disease) Anxiety Depression Smoker Asthma Hypertension Migraines Medical History no medical history Home Medications ???Medication ???Instructions ???Recorded ???Last Taken ???Type albuterol sulfate 90 mcg/actuation 1 - 2 puff inhalation Q4H PRN TN N 04/18/13 09/23/14 History aerosol inhaler (Ventolin [...] c Hematologic/ (more content not included)... Normal [facility] Eosinophil percentageOrdered By: Riley Jeff on 09-29-2024 Eosinophils/100 WBC (Bld) 0.7 % 0-5 [facility] Erythrocyte distribution wid th ratioOrdered By: Riley Jeff on 09-29-2024 Erythrocyte distribution width (RBC) [Ratio] 13.1 % 11.6-14.6 [facility] Erythrocyte distribution wid th standard deviationOrdered By: Riley Jeff on 09-29-2024 Erythrocyte distribution width (RBC) [Ratio] 40.6 fl 35.1-43.9 [facility] Glomerular filtration rate ( GFR) estimation/1.73 sq m using serum, plasma, or whole bOrdered By: Riley Jeff on 09-29-2024 GFR/1.73 sq M.predicted among non-blacks MDRD (S/P/Bld) [Vol rate/Area] 94 mL/min/{1.73_m2} >60 [facility] Comment on above: mL/min/1.73m2 CKD-EP I Creatinine Equation (2020) Gram stainOrdered By: Dionne Porter on 09-29-2024 Microscopic observation Gram stain Nom (Unsp spec) [facility] H AND P Exam - Hospitaliston 09-29-2024 H&P Exam - Hospitalist [facility] Medical Records Department [address] [place] [address] H P Exam - Hospitalist 09/29/24 0403 MR#: [id number] Acct: [id number] Name: DENIA GONZALEZ Rep #: [id number] : 1955 69 From: Dionne Porter MD [...] allergic rhinitis, HTN who presents to the [facility] ED on 09/29/2024 with history of 1 [...] 1 - 2 puff inhalation Q4H PRN TN N 04/18/13 09/23/14 History aerosol inhaler (Ventolin [...] Smoking Stat (more content not included)... Normal [facility] Hematocrit Auto (Bld) [Volum e fraction]Ordered By: Riley Jeff on 09-29-2024 Hematocrit (Bld) [Volume fraction] 41.7 % 37-47 [facility] Hemoglobin measurementOrdere d By: Riley Jeff on 09-29-2024 Hemoglobin (Bld) [Mass/Vol] 13.6 g/dL 12.0-15.0 [facility] Immature granulocytes/100 WB C Auto (Bld)Ordered By: Riley Jeff on 09-29-2024 Immature granulocytes/100 WBC (Bld) 0.500 % 0.0-0.9 [facility] Comment on above: IG% - Immature Granu locytes (promyelocytes, myelocytes and metamyelocytes) > 1% indicates that a LEFT SHIFT is Present. Influenza virus A and B and SARS-CoV-2 (COVID-19) and Respiratory syncytial virus RNAOrdered By: Riley Jeff on 09-29-2024 SARS-CoV-2 (COVID-19) RNA ASPEN+probe Ql (Unsp spec) [facility] L503.7505on 09-29-2024 Natriuretic peptide B (Bld) [Mass/Vol] 518 pg/mL Normal <=900 [facility] Comment on above: Result Comment: Hear t Failure Unlikely: < 300 pg/mL Heart Failure Likely < 50 Years: > 450 pg/mL 50-75 Years: > 900 pg/mL >75 Years: > 1800 pg/mL Performed By: #### L 506.0400, L500.2500, L100.0100 #### [facility] [address] [place], [address] L509.7001on 09-29-2024 Procalcitonin 0.04 ng/mL Normal <=0.10 [facility] Comment on above: Result Comment: Inte rpretation: [...] By: #### L 506.0400, L500.2500, L100.0100 #### [facility] [address] [place], [address] M100.678on 09-29-2024 M100.678 Pending SARS-CoV-2 (COVID 19) Negative INFLUENZA A Negative INFLUENZA B Negative RSV PCR Negative Normal [facility] Comment on above: Performed By: #### L 506.0400, L500.2500, L100.0100 #### [facility] [address] [place], [address] MCV (mean corpuscular volume ) determinationOrdered By: Riley Jeff on 09-29-2024 MCV (RBC) [Entitic vol] 85.5 fL 81-99 [facility] Magnesiumon 09-29-2024 Magnesium [Mass/Vol] 2.0 mg/dL Normal 1.5-2.2 [facility] Comment on above: Performed By: #### L 506.0400, L500.2500, L100.0100 #### [facility] [address] [place], [address] Magnesium measurement (mass/ volume)Ordered By: Riley Jeff on 09-29-2024 Magnesium (Unsp spec) [Mass/Vol] 2.0 mg/dL 1.5-2.2 [facility] Mean corpuscular hemoglobin (MCH) determinationOrdered By: Riley Jeff on 09-29-2024 MCH (RBC) [Entitic mass] 27.9 pg 27.0-32.0 [facility] Mean corpuscular hemoglobin concentration (MCHC) determinationOrdered By: Riley Jeff on 09-29-2024 MCHC (RBC) [Mass/Vol] 32.6 g/dL 32-36 [facility] Mean platelet volume determi nationOrdered By: Riley Jeff on 09-29-2024 Platelet mean volume (Bld) [Entitic vol] 9.7 fL 6.2-12.0 [facility] Measurement, pHOrdered By: Duncan Jeff on 09-29-2024 pH (Unsp spec) 7.36 [pH] 7.35-7.45 [facility] Microbial respiratory cultur eOrdered By: Dionne Porter on 09-29-2024 Microorganism identified Cx Nom (Unsp spec) Stenotrophomonas maltophilia Abnormal [facility] Microorganism identified Cx Nom (Unsp spec) Pseudomonas aeruginosa Abnormal [facility] Monocyte percentageOrdered B y: Riley Jeff on 09-29-2024 Monocytes/100 WBC (Bld) 6.9 % 0-10 [facility] Natriuretic peptide.B prohor sharee N-Terminal [Mass/volume] in Serum or PlasmaOrdered By: Riley Jeff on 09-29-2024 Natriuretic peptide.B prohormone N-Terminal [Mass/Vol] 518 pg/mL <900 [facility] Comment on above: Heart Failure Unlike ly: < 300 pg/mLHeart Failure Likely< 50 Years: > 450 pg/mL50-75 Years: > 900 pg/mL>75 Years: > 1800 pg/mL Neutrophil percentageOrdered By: Riley Jeff on 09-29-2024 Neutrophils/100 WBC (Bld) 78.5 % High 47-70 [facility] No Panel InformationOrdered By: Riley Jeff on 09-29-2024 Bld Gas Crit Called To/Read Back By Yes [facility] Blood Gas Notified Time 04:48:18 [facility] Blood Gas Notified Whom Randee [facility] Blood Gas Sample [facility] L [facility] Vent Mode Not entered [facility] Oxygen Delivery Device Cannula [facility] Nucleated red blood cell per centageOrdered By: Riley Jeff on 09-29-2024 Nucleated RBC/100 WBC (Bld) [Ratio] 0 % 0-5 [facility] Platelet countOrdered By: Silvia Jeff on 09-29-2024 Platelets (Bld) [#/Vol] 198 10*3/uL 150-450 [facility] Potassium measurement (mass/ volume)Ordered By: Riley Jeff on 09-29-2024 Potassium (Unsp spec) [Mass/Vol] 4.4 mmol/L 3.3-5.1 [facility] Procalcitonin [Mass/volume] in Serum or Plasma by ImmunoassayOrdered By: Dionne Porter on 09-29-2024 Procalcitonin IA [Mass/Vol] 0.04 ng/mL <0.11 [facility] Comment on above: Interpretation:<0.10 -0.25 ng/mL: Antibiotic [...] 09-29-2024 RBC (Bld) [#/Vol] 4.88 10*6/uL 4.2-5.4 [facility] RESPIRATORY PANEL MOLECULARo n 09-29-2024 RP PANEL ADENOVIRUS Not Detected INFLUENZA A Not Detected INFLUENZA A (SUBTYPE H1) Not Detected INFLUENZA A (SUBTYPE H3) Not Detected INFLUENZA B Not Detected HUMAN METAPHNEUMO Not Detected PARAINFLUENZA 1 Not Detected PARAINFLUENZA 2 Not Detected PARAINFLUENZA 3 Not Detected PARAINFLUENZA 4 Not Detected RHINOVIRUS Not Detected RSV A Not Detected RSV B Not Detected Normal [facility] Comment on above: Performed By: #### L 506.0400, L500.2500, L100.0100 #### [facility] [place] [address] [place], [address] Respiratory pathogens detect ion panel by molecular detection methodOrdered By: Dionne Porter on 09-29-2024 Respiratory pathogens DNA and RNA panel ASPEN+probe (Resp) [facility] Serum creatinine measurement (mass/volume)Ordered By: Riley Jeff on 09-29-2024 Creatinine [Mass/Vol] 0.70 mg/dL 0.70-1.20 [facility] Serum glucose measurement (m ass/volume)Ordered By: Riley Jeff on 09-29-2024 Glucose [Mass/Vol] 129 mg/dL High 70-99 [facility] Serum or plasma calcium kadi urement (mass/volume)Ordered By: Riley Jeff on 09-29-2024 Calcium [Mass/Vol] 8.9 mg/dL 7.6-11.0 [facility] Serum or plasma urea nitroge n measurement (mass/volume)Ordered By: Riley Jeff on 09-29-2024 Urea nitrogen [Mass/Vol] 18 mg/dL 4-19 [facility] Sodium levelOrdered By: Brennen Jeff on 09-29-2024 Sodium [Moles/Vol] 136 mmol/L 133-145 [facility] Total carbon dioxide measure mentOrdered By: Riley Jeff on 09-29-2024 CO2 [Moles/Vol] 47 mmol/L [facility] White blood cell (WBC) count Ordered By: Riley Jeff on 09-29-2024 WBC (Bld) [#/Vol] 10.6 10*3/uL 4.4-11.0 [facility] CNPNon 07-24-2024 CNPN Telephone (FAMPWS) DENIA GONZALEZ ([id number]) 1955 F Date Time Provider Department 07/24/24 [...] rash. 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 Dx: COPD J44.9 - Nebulizer Accessories [facility] Mask and supplies as needed - [facility]ULSE [facility] Use as directed to check oxygen saturation level - ammonium lactate (AMLACTIN) 12 % lotion Apply 1 application to affected area as needed for Dry Skin. - losartan (COZAAR) 50 mg tablet Take 0.5 tablets by mouth once daily. - OXYGEN, HOME THERAPY, 2.5 L/min by Nasal Cannula route continuous. Use as directred - Disposable Gloves (DISPOSABLE LATEX-FREE GLOVES) [facility] 1 Box once every month. ICD 10: [...] classification (HC (more content not included)... Normal [facility] CNPNon 07-12-2024 [facility] DENIA GONZALEZ ([id number]) 1955 F Date Time Provider Department 07/12/24 [facility] During your visit today, we recorded the following information about you: Sukhi Marrero RN 07/12/2024 2:51 PM Signed [facility] calls to request chart notes to support patients need for continued oxygen. Most recent visits have all been [facility]. Jenni requests most recent visit be faxed. Faxed to [phone] per request. Sukhi Marrero RN Allergies As [...] directed. Dx: COPD J44.9 - Nebulizer Accessories [facility] Mask and supplies as needed - [facility]ULSE [facility] Use as directed to check oxygen saturation level - ammonium lactate (AMLACTIN) 12 % lotion Apply 1 application to affected area as needed for Dry Skin. - losartan (COZAAR) 50 mg tablet Take 0.5 tablets by mouth once daily. - OXYGEN, HOME THERAPY, 2.5 L/min by Nasal Cannula route continuous. Use as directred - Disposable Gloves (DISPOSABLE LATEX-FREE GLOVES) [facility] 1 Box once every month. ICD 10: [...] Encounter Status:Closed by SUKH[facility]ERO [facility] DENIA GONZALEZ ([id number]) 1955 F Date Time Provider Department 06/12/24 YOSEPH FALL [facility] During your visit today, we recorded the following information about you: Sanjana Baca MA 06/12/2024 12:44 PM Signed Type of form: Medical Necessity for incontinence supplies. Form received via fax When form is completed, Fax form to [phone] Form has been forwarded to Physician Desk: JOS Drew Rilee, MA 06/12/2024 3:42 PM Signed Form completed and faxed back to information below. Sanjana Baca MA Allergies As of Date: 06/12/2024 (No Known Allergies) Date Reviewed: 04/07/2024 Reviewed by: Sanjana Baca MA - Fully Assessed Reason for Visit: Forms [383] Cmt: Accurate Medical Supply Prescriptions as of [...] directed. Dx: COPD J44.9 - Nebulizer Accessories [facility] Mask and supplies as needed - PULSE [facility] Use as directed to check oxygen saturation level - ammonium lactate (AMLACTIN) 12 % lotion Apply 1 application to affected area as needed for Dry Skin. - losartan (COZAAR) 50 mg tablet Take 0.5 tablets by mouth once daily. - OXYGEN, HOME THERAPY, 2.5 L/min by Nasal Cannula route continuous. Use as directred - Disposable Gloves (DISPOSABLE LATEX-FREE GLOVES) [facility] 1 Box once every month. ICD 10: [...] Encounter Status:Closed by SANJANA BACA on 06/12/24 [facility] [place] 06-02-2024 CNPN Telephone ([facility]) DENIA GONZALEZ ([id number]) 1955 F Date Time Provider Department 06/02/24 [facility] FALL [facility] During your visit today, we recorded the following information about you: Ban Villafana LPN 06/02/2024 8:13 AM Signed Electronic PA rec'd and completed for cyclobenzaprine. This was denied. Note from payer: CaseId:[id number];Stat us:Denied;Review Type:Prior Auth;Appeal Information: Attention:ATTN: [employer] [address] [address],[place], [place],[address] WebAddress:[email or web address]; Important - Please read the below [...] for a decision on the appeal.; Payer: [employer] [phone] Electronic appeal: Supported View History Notes Time [...] to its destination. To be filled at: [facility] [address] [place] [address] [address] [facility] [phone] Allergies As of Date: 06/02/2024 (No Known [...] directed. Dx: COPD J44.9 - Nebulizer Accessories [facility] Mask and supplies as needed - [facility] Use as directed to check oxygen saturation level - ammonium lactate (AMLACTIN) 12 % lotion Apply 1 application to affected area as needed for Dry Skin. - losartan (COZAAR) 50 mg tablet Take 0.5 tablets by mouth once daily. - OXYGEN, HOME THERAPY, 2.5 L/min by Nasal Cannula route continuous. Use as directred - Disposable Gloves (DISPOSABLE LATEX-FREE GLOVES) [facility] 1 Box once every month. ICD 10: [...] Noted Reso (more content not included)... Normal [facility] [place] 03-21-2024 [facility] Telephone (FAMP[facility]) MONICODENIA ([id number]) 1955 F Date Time Provider Department 03/21/24 YOSEPH FALL [facility] During your visit today, we recorded [...] Please review and advise, KAREN Werner Ashley, APRN.[facility] 03/22/2024 8:51 AM Signed The following approved [...] and supplies as needed - [facility] Use as directed to check oxygen saturation level - ammonium lactate (AMLACTIN) 12 % lotion Apply 1 application to affected area as needed for Dry Skin. - losartan (COZAAR) 50 mg tablet Take 0.5 tablets by mouth once daily. - OXYGEN, HOME THERAPY, 2.5 L/min by Nasal Cannula route continuous. Use as directred - Disposable Gloves (DISPOSABLE LATEX-FREE GLOVES) [facility] 1 Box once every month. ICD 10: [...] PAP S (more content not included)... [facility]) DENIA GONZALEZ ([id number]) 1955 F Date Time Provider Department 02/03/24 [...] Fully Assessed Reason for Visit: Patient Question [7857] Prescriptions as of 02/03/2024 - HYDROcodone-acetamin ophen [...] directed. Dx: COPD J44.9 - Nebulizer Accessories [facility] Mask and supplies as needed - [facility] Use as directed to check oxygen saturation level - ammonium lactate (AMLACTIN) 12 % lotion Apply 1 application to affected area as needed for Dry Skin. - losartan (COZAAR) 50 mg tablet Take 0.5 tablets by mouth once daily. - OXYGEN, HOME THERAPY, 2.5 L/min by Nasal Cannula route continuous. Use as directred - Disposable Gloves (DISPOSABLE LATEX-FREE GLOVES) [facility] 1 Box once every month. ICD 10: [...] [Z51.81] 05/16/2021 Chronic respiratory failure with hypoxia ([facility]) *02/20/2022 Cigarette smoker [F17.210] 02/20/2022 Obstructive chronic bronchitis with exacerbatio* Encounter Status:Closed by Martínez LOUIE on 02/03/24 [facility] CNPN Telephone ([employer]) DENIA GONZALEZ ([id number]) 1955 F Date Time Provider Department 02/03/24 [facility] During your visit today, we recorded the [...] Fully Assessed Reason for Visit: Patient Question [6827] Order(s):amoxicillin (AMOXIL) 875 mg tabletTake 1 tablet [...] directed. Dx: COPD J44.9 - Nebulizer Accessories [facility] Mask and supplies as needed - P[facility] Use as directed to check oxygen saturation level - ammonium lactate (AMLACTIN) 12 % lotion Apply 1 application to affected area as needed for Dry Skin. - losartan (COZAAR) 50 mg tablet Take 0.5 tablets by mouth once daily. - OXYGEN, HOME THERAPY, 2.5 L/min by Nasal Cannula route continuous. Use as directred - Disposable Gloves (DISPOSABLE LATEX-FREE GLOVES) [facility] 1 Box once every month. ICD 10: [...] Normal [facility] Absolute lymphocyte countOrd ered By: Jan Bolanos on 07-21-2023 Lymphocytes Auto (Unsp spec) [#/Vol] 0.61 10*3/uL 0.83-4.51 [facility] Automated lymphocyte count a s percentage of total leukocytesOrdered By: Jan Bolanos on 07-21-2023 Lymphocytes/100 WBC Auto (Unsp spec) 8.8 % 19-41 [facility] Basophil percentageOrdered B y: Jan Bolanos on 07-21-2023 Basophils/100 WBC (Bld) 0.0 % 0-1 [facility] Chloride [Moles/Vol] 107 mmol/L 98-107 [facility] Eosinophils/100 WBC (Bld) 0.0 % 0-5 [facility] Glucose [Mass/Vol] 140 mg/dL 74-106 [facility] Comment on above: Fasting Glucose resu lt greater than or equal to 126 mg/dL suggests DIABETES MELLITUS per A.D.A. criteria. Hemoglobin (Bld) [Mass/Vol] 12.0 g/dL 12.0-15.0 [facility] Monocytes/100 WBC (Bld) 2.7 % 0-10 [facility] Neutrophils (Bld) [#/Vol] 6.1 10*3/uL 2.0-7.7 [facility] Neutrophils/100 WBC (Bld) 88.1 % 47-70 [facility] Potassium [Moles/Vol] 4.1 mmol/L 3.5-5.1 [facility] Sodium [Moles/Vol] 140 mmol/L 136-145 [facility] WBC (Bld) [#/Vol] 6.9 10*3/uL 4.4-11.0 [facility] Determination of erythrocyte mean corpuscular volume (MCV)Ordered By: Jan Bolanos on 07-21-2023 MCV (RBC) [Entitic vol] 82.7 fL 81-99 [facility] Erythrocyte distribution wid th ratioOrdered By: Jan Bolanos on 07-21-2023 Erythrocyte distribution width (RBC) [Ratio] 13.4 % 11.6-14.6 [facility] Erythrocyte distribution wid th standard deviationOrdered By: Jan Bolanos on 07-21-2023 Erythrocyte distribution width (RBC) [Entitic vol] 40.3 fL 35.1-43.9 [facility] Gram stain for investigation of transfusion reactionOrdered By: Jan Bolanos on 07-21-2023 Microscopic observation Gram stain Nom (Unsp spec) [facility] Hematocrit Auto (Bld) [Volum e fraction]Ordered By: Jan Bolanos on 07-21-2023 Hematocrit (Bld) [Volume fraction] 37.4 % 37-47 [facility] Immature granulocytes/100 WB C Auto (Bld)Ordered By: Jan Bolanos on 07-21-2023 Immature granulocytes/100 WBC (Bld) 0.400 % 0.0-0.9 [facility] Comment on above: IG% - Immature Granu locytes (promyelocytes, myelocytes and metamyelocytes) > 1% indicates that a LEFT SHIFT is Present. Laboratory - Chemistry and C hemistry - challengeOrdered By: Jan Bolanos on 07-21-2023 CO2 [Moles/Vol] 30.0 mmol/L 21.0-32.0 [facility] Urea nitrogen/Creatinine [Mass ratio] 27.8 mg/mg 10-20 [facility] Laboratory - Hematology and Cell countsOrdered By: Jan Bolanos on 07-21-2023 MCH (RBC) [Entitic mass] 26.5 pg 27.0-32.0 [facility] MCHC (RBC) [Mass/Vol] 32.1 g/dL 32-36 [facility] Nucleated RBC/100 WBC (Bld) [Ratio] 0 % 0-5 [facility] Platelet mean volume (Bld) [Entitic vol] 9.9 fL 6.2-12.0 [facility] Platelets (Bld) [#/Vol] 210 10*3/uL 150-450 [facility] No Panel InformationOrdered By: Jan Bolanos on 07-21-2023 Estimated Creatinine Clearance Calc 64.83 ml/min [facility] Estimated GFR (MDRD) Amer 170 mL/min >60 [facility] Comment on above: GFR Calc Estimated GFR (MDRD) Non-Af Amer 141 mL/min >60 [facility] Comment on above: Non- GFR Calc RBC Auto (Bld) [#/Vol]Ordere d By: Jan Bolanos on 07-21-2023 RBC (Bld) [#/Vol] 4.52 10*6/uL 4.2-5.4 [facility] Serum or plasma calcium kadi urement (mass/volume)Ordered By: Jan Bolanos on 07-21-2023 Calcium [Mass/Vol] 8.6 mg/dL 8.5-10.1 [facility] Serum or plasma creatinine m easurement (mass/volume)Ordered By: Jan Bolanos on 07-21-2023 Creatinine [Mass/Vol] 0.47 mg/dL 0.55-1.02 [facility] Comment on above: The validity of the calculated GFR & GFRAA in patients over 70 years has not been determined. Clinical correlation is essential. Serum or plasma urea nitroge n measurement (mass/volume)Ordered By: Jan Bolanos on 07-21-2023 Urea nitrogen [Mass/Vol] 13 mg/dL 7-18 [facility] Thin prep Papanicolaou smear with manual screeningOrdered By: Jan Bolanos on 07-21-2023 Thin prep Papanicolaou smear with manual screening 3 5-15 [facility] Absolute lymphocyte countOrd ered By: Dallas Mena on 07-20-2023 Lymphocytes Auto (Unsp spec) [#/Vol] 2.11 10*3/uL 0.83-4.51 [facility] Automated lymphocyte count a s percentage of total leukocytesOrdered By: Dallas Mena on 07-20-2023 Lymphocytes/100 WBC Auto (Unsp spec) 23.7 % 19-41 [facility] Basophil percentageOrdered B y: José Churchenzo on 07-20-2023 Basophil percentage 2.4 mg/dL 2.5-4.9 [facility] Bilirubin [Mass/Vol] 0.40 mg/dL 0.20-1.00 [facility] Comment on above: For patients on eltr ombopag therapy, use of Dimension Decker TBIL is not recommended. Protein [Mass/Vol] 7.4 g/dL 6.4-8.2 [facility] Basophil percentageOrdered B y: Dallas Mena on 07-20-2023 Basophils/100 WBC (Bld) 0.3 % 0-1 [facility] Chloride [Moles/Vol] 101 mmol/L 98-107 [facility] Eosinophils/100 WBC (Bld) 0.6 % 0-5 [facility] Glucose [Mass/Vol] 129 mg/dL 74-106 [facility] Comment on above: Fasting Glucose resu lt greater than or equal to 126 mg/dL suggests DIABETES MELLITUS per A.D.A. criteria. Hemoglobin (Bld) [Mass/Vol] 14.1 g/dL 12.0-15.0 [facility] Monocytes/100 WBC (Bld) 7.6 % 0-10 [facility] Neutrophils (Bld) [#/Vol] 6.0 10*3/uL 2.0-7.7 [facility] Neutrophils/100 WBC (Bld) 67.5 % 47-70 [facility] Potassium [Moles/Vol] 3.8 mmol/L 3.5-5.1 [facility] Sodium [Moles/Vol] 139 mmol/L 136-145 [facility] WBC (Bld) [#/Vol] 8.9 10*3/uL 4.4-11.0 [facility] Determination of erythrocyte mean corpuscular volume (MCV)Ordered By: Dallas Mena on 07-20-2023 MCV (RBC) [Entitic vol] 82.8 fL 81-99 [facility] Erythrocyte distribution wid th ratioOrdered By: Dallas Mena on 07-20-2023 Erythrocyte distribution width (RBC) [Ratio] 13.6 % 11.6-14.6 [facility] Erythrocyte distribution wid th standard deviationOrdered By: Dallas Mena on 07-20-2023 Erythrocyte distribution width (RBC) [Entitic vol] 41.0 fL 35.1-43.9 [facility] Hematocrit Auto (Bld) [Volum e fraction]Ordered By: Dallas Mena on 07-20-2023 Hematocrit (Bld) [Volume fraction] 44.2 % 37-47 [facility] Immature granulocytes/100 WB C Auto (Bld)Ordered By: Dallas Mena on 07-20-2023 Immature granulocytes/100 WBC (Bld) 0.300 % 0.0-0.9 [facility] Comment on above: IG% - Immature Granu locytes (promyelocytes, myelocytes and metamyelocytes) > 1% indicates that a LEFT SHIFT is Present. Laboratory - Chemistry and C hemistry - challengeOrdered By: José Smith on 07-20-2023 Albumin/Globulin [Mass ratio] 0.8 {ratio} 0.9-2.4 [facility] ALP [Catalytic activity/Vol] 72 U/L 45-117 [facility] ALT [Catalytic activity/Vol] 15 U/L 13-56 [facility] Globulin (S) [Mass/Vol] 4.0 g/dL 2.2-4.2 [facility] Magnesium [Mass/Vol] 2.1 mg/dL 1.6-2.6 [facility] Laboratory - Chemistry and C hemistry - challengeOrdered By: Dallas Mena on 07-20-2023 CO2 [Moles/Vol] 33.0 mmol/L 21.0-32.0 [facility] Urea nitrogen/Creatinine [Mass ratio] 18.7 mg/mg 10-20 [facility] Laboratory - Hematology and Cell countsOrdered By: Dallas Mena on 07-20-2023 MCH (RBC) [Entitic mass] 26.4 pg 27.0-32.0 [facility] MCHC (RBC) [Mass/Vol] 31.9 g/dL 32-36 [facility] Nucleated RBC/100 WBC (Bld) [Ratio] 0 % 0-5 [facility] Platelet mean volume (Bld) [Entitic vol] 9.9 fL 6.2-12.0 [facility] Platelets (Bld) [#/Vol] 233 10*3/uL 150-450 [facility] Laboratory - Microbiology an d Antimicrobial susceptibilityOrdered By: Dallas Mena on 07-20-2023 SARS-CoV-2 (COVID-19) RNA ASPEN+probe Ql (Unsp spec) [facility] No Panel InformationOrdered By: Dallas Mena on 07-20-2023 Estimated Creatinine Clearance Calc 65.47 ml/min [facility] Estimated GFR (MDRD) Amer 108 mL/min >60 [facility] Comment on above: GFR Calc Estimated GFR (MDRD) Non-Af Amer 89 mL/min >60 [facility] Comment on above: Non- GFR Calc RBC Auto (Bld) [#/Vol]Ordere d By: Dallas Mena on 07-20-2023 RBC (Bld) [#/Vol] 5.34 10*6/uL 4.2-5.4 [facility] Serum or plasma calcium kadi urement (mass/volume)Ordered By: Dallas Mena on 07-20-2023 Calcium [Mass/Vol] 8.8 mg/dL 8.5-10.1 [facility] Serum or plasma creatinine m easurement (mass/volume)Ordered By: Dallas Mena on 07-20-2023 Creatinine [Mass/Vol] 0.70 mg/dL 0.55-1.02 [facility] Comment on above: The validity of the calculated GFR & GFRAA in patients over 70 years has not been determined. Clinical correlation is essential. Serum or plasma thyroid stim ulating hormone (TSH) measurement (units/volume)Ordered By: José Smith on 07-20-2023 TSH Qn 0.35 uIU/mL 0.358-3.74 [facility] Serum or plasma urea nitroge n measurement (mass/volume)Ordered By: Dallas Mena on 07-20-2023 Urea nitrogen [Mass/Vol] 13 mg/dL 7-18 [facility] Thin prep Papanicolaou smear with manual screeningOrdered By: José Smith on 07-20-2023 Thin prep Papanicolaou smear with manual screening 3.4 g/dL 3.2-5.0 [facility] Thin prep Papanicolaou smear with manual screening 13 U/L 15- [facility] Thin prep Papanicolaou smear with manual screeningOrdered By: Dallas Mena on 07-20-2023 Thin prep Papanicolaou smear with manual screening 5 5-15 [facility] FECAL OCCULT BLOOD TESTon Lower GI hemoglobin IA Ql (Stl) Negative Negative [facility] OXIMETRY WITH AMBULATIONon 1 [facility] Vital Signs Date Time Vital Sign Value Performing Clinician Faci lity 12-26-2024 20:00-0400 Diastolic blood pressure 81 mm[Hg] Dr. Yoseph Fall MD Work Phone: 8([phone] [place] [address] 12-26-2024 20:00-0400 Heart rate 106 /min Dr. Yoseph Fall MD Work Phone: 2(426)[phone] [place] [address] 12-26-2024 20:00-0400 Inhaled oxygen flow rate 3 L/min Dr. Yoseph Fall MD Work Phone: 8(384)[phone] [place] [address] 12-26-2024 20:00-0400 Respiratory rate 18 /min Dr. Yoseph Fall MD Work Phone: 6(385)[phone] [place] [address] 12-26-2024 20:00-0400 SaO2% (BldA) [Mass fraction] 97 % Dr. Yoseph aFll MD Work Phone: [facility] 12-26-2024 20:00-0400 Systolic blood pressure 138 mm[Hg] Dr. Yoseph Fall MD Work Phone: [facility] 12-26-2024 19:58-0400 Body temperature 98.6 [degF] Dr. Yoseph Fall MD Work Phone: [facility] 12-26-2024 16:37-0400 Body mass index (BMI) [Ratio] 28 kg/m2 Dr. Yoseph Fall MD Work Phone: [facility] 12-26-2024 16:37-0400 Body weight [address] Yoseph Fall MD Work Phone: [facility] 12-26-2024 13:53-0400 Body height 162.[address] Yoseph Fall MD Work Phone: [facility] 12-15-2024 15:04-0400 Diastolic blood pressure 80 mm[Hg] Zaria Shea MD Work Phone: [facility] [employer] 12-15-2024 15:04-0400 Systolic blood pressure 130 mm[Hg] Zaria Shea MD Work Phone: [facility] [employer] 12-15-2024 14:45-0400 Body height 162.6 cm Rubi Corbett MD Work Phone: [facility] [employer] 12-15-2024 14:45-0400 Body mass index (BMI) [Ratio] 26.61 kg/m2 Rubi Corbett MD Work Phone: [facility] [employer] 12-15-2024 14:45-0400 Body weight 70.31 kg Rubi Corbett MD Work Phone: [facility] [employer] 12-15-2024 14:45-0400 Diastolic blood pressure 90 mm[Hg] Rubi Corbett MD Work Phone: [facility] [employer] 12-15-2024 14:45-0400 Heart rate 99 /min Rubi Corbett MD Work Phone: [facility] [employer] 12-15-2024 14:45-0400 SaO2% (BldA) [Mass fraction] 93 % Rubi Corbett MD Work Phone: [facility] [employer] 12-15-2024 14:45-0400 Systolic blood pressure 164 mm[Hg] Rubi Corbett MD Work Phone: [facility] [employer] 12-15-2024 14:36-0400 Body height 162.6 cm Zaria Shea MD Work Phone: [facility] [employer] 12-15-2024 14:36-0400 Body mass index (BMI) [Ratio] 26.61 kg/m2 Zaria Shea MD Work Phone: [facility] 12-15-2024 14:36-0400 Body weight 70.31 kg Zaria Shea MD Work Phone: [facility] 12-15-2024 14:36-0400 Heart rate 99 /min Zaria Shea MD Work Phone: [facility] 12-15-2024 14:36-0400 SaO2% (BldA) [Mass fraction] 93 % Zaria Shea MD Work Phone: [facility] 11-03-2024 13:06-0400 Body height 162.[address] Yoseph Fall MD Work Phone: [facility] 11-03-2024 13:06-0400 Body mass index (BMI) [Ratio] 25.9 kg/m2 Dr. Yoseph Fall MD Work Phone: [facility] 11-03-2024 13:06-0400 Body weight 68.[address] Yoseph Fall MD Work Phone: [facility] 11-03-2024 13:06-0400 Diastolic blood pressure 65 mm[Hg] Dr. Yoseph Fall MD Work Phone: [facility] 11-03-2024 13:06-0400 Heart rate 86 /min Dr. Yoseph Fall MD Work Phone: [facility] 11-03-2024 13:06-0400 Respiratory rate 20 /min Dr. Yoseph Fall MD Work Phone: [facility] 11-03-2024 13:06-0400 Systolic blood pressure 110 mm[Hg] Dr. Yoseph Fall MD Work Phone: [facility] 10-17-2024 14:32-0400 Body mass index (BMI) [Ratio] 26.22 kg/m2 Yoseph Fall MD Work Phone: [facility] 10-17-2024 14:32-0400 Body temperature 97.81 [degF] Yoseph Fall MD Work Phone: [facility] 10-17-2024 14:32-0400 Body weight 67.13 kg Yoseph Fall MD Work Phone: [facility] 10-17-2024 14:32-0400 Diastolic blood pressure 64 mm[Hg] Yoseph Fall MD Work Phone: [facility] 10-17-2024 14:32-0400 Heart rate 82 /min Yoseph Fall MD Work Phone: [facility] 10-17-2024 14:32-0400 SaO2% (BldA) [Mass fraction] 94 % Yoseph Fall MD Work Phone: [facility] 10-17-2024 14:32-0400 Systolic blood pressure 105 mm[Hg] Yoseph Fall MD Work Phone: [facility] 10-09-2024 15:47-0400 Heart rate 109 /min Dr. Yoseph Fall MD Work Phone: [facility] 10-09-2024 15:47-0400 Respiratory rate 20 /min Dr. Yoseph Fall MD Work Phone: [facility] 10-09-2024 15:37-0400 Inhaled oxygen flow rate 2 L/min Dr. Yoseph Fall MD Work Phone: [facility] 10-09-2024 15:35-0400 Body temperature 98.1 [degF] Dr. Yoseph Fall MD Work Phone: [facility] 10-09-2024 15:35-0400 Diastolic blood pressure 72 mm[Hg] Dr. Yoseph Fall MD Work Phone: [facility] 10-09-2024 15:35-0400 SaO2% (BldA) [Mass fraction] 97 % Dr. Yoseph Fall MD Work Phone: [facility] 10-09-2024 15:35-0400 Systolic blood pressure 142 mm[Hg] Dr. Yoseph Fall MD Work Phone: 9(791)752-785863 [place] [address] 10-09-2024 04:58-0400 Body mass index (BMI) [Ratio] 26.1 kg/m2 Dr. Yoseph Fall MD Work Phone: 1(919)444-605463 [place] [address] 10-09-2024 04:58-0400 Body weight 69.[address] Yoseph Fall MD Work Phone: 7(894)755-944163 [place] [address] 10-08-2024 11:37-0400 Body height 162.[address] Yoseph Fall MD Work Phone: 6(478)[phone] [place] [address] 09-30-2024 22:20-0400 Inhaled oxygen concentration 30 % Dr. Yoseph Fall MD Work Phone: 1(475)962-754863 [place] [address] 09-29-2024 05:00-0400 Body temperature 98.8 [degF] Dr. Yoseph Fall MD Work Phone: 2(983)882-317463 [place] [address] 09-29-2024 05:00-0400 Diastolic blood pressure 65 mm[Hg] Dr. Yoseph Fall MD Work Phone: 7(963)184-956763 [place] [address] 09-29-2024 05:00-0400 Heart rate 111 /min Dr. Yoseph Fall MD Work Phone: 0(891)078-579863 [place] [address] 09-29-2024 05:00-0400 Respiratory rate 21 /min Dr. Yoseph Fall MD Work Phone: 1(877)356-292863 [place] [address] 09-29-2024 05:00-0400 SaO2% (BldA) [Mass fraction] 96 % Dr. Yoseph Fall MD Work Phone: 0(459)203-851863 [place] [address] 09-29-2024 05:00-0400 Systolic blood pressure 123 mm[Hg] Dr. Yoseph Fall MD Work Phone: 3(870)401-194363 [place] [address] 09-29-2024 03:23-0400 Inhaled oxygen flow rate 3 L/min Dr. Yoseph Fall MD Work Phone: 7(528)114-551463 [place] [address] 09-29-2024 02:19-0400 Body height 162.[address] Yoseph Fall MD Work Phone: [facility] 09-29-2024 02:19-0400 Body mass index (BMI) [Ratio] 27 kg/m2 Dr. Yoseph Fall MD Work Phone: [facility] 09-29-2024 02:19-0400 Body weight 71.[address] Yoseph Fall MD Work Phone: [facility] 04-07-2024 08:39-0500 Body mass index (BMI) [Ratio] 29.23 kg/m2 Yoseph Fall MD Work Phone: [facility] 04-07-2024 08:39-0500 Body temperature 98.1 [degF] Yoseph Fall MD Work Phone: [facility] 04-07-2024 08:39-0500 Body weight 74.84 kg Yoseph Fall MD Work Phone: [facility] 04-07-2024 08:39-0500 Diastolic blood pressure 76 mm[Hg] Yoseph Fall MD Work Phone: [facility] Comment on above: home bp 04-07-2024 08:39-0500 Heart rate 86 /min Yoseph Fall MD Work Phone: [facility] 04-07-2024 08:39-0500 SaO2% (BldA) [Mass fraction] 93 % Yoseph Fall MD Work Phone: [facility] 04-07-2024 08:39-0500 Systolic blood pressure 141 mm[Hg] Yoseph Fall MD Work Phone: [facility] Comment on above: home bp 07-22-2023 17:49-0400 Heart rate 93 /min Dr. Yoseph Fall Work Phone: [facility] 07-22-2023 17:49-0400 Respiratory rate 18 /min Dr. Yoseph Fall Work Phone: [facility] 07-22-2023 16:37-0400 Body temperature 98.7 [degF] Dr. Yoseph Fall Work Phone: [facility] 07-22-2023 16:37-0400 Diastolic blood pressure 68 mm[Hg] Dr. Yoseph Fall Work Phone: [facility] 07-22-2023 16:37-0400 SaO2% (BldA) [Mass fraction] 96 % Dr. Yoseph Fall Work Phone: [facility] 07-22-2023 16:37-0400 Systolic blood pressure 146 mm[Hg] Dr. Yoseph Fall Work Phone: [facility] 07-22-2023 11:00-0400 Inhaled oxygen flow rate 2.5 L/min Dr. Yoseph Fall Work Phone: [facility] 07-22-2023 06:00-0400 Body mass index (BMI) [Ratio] 26.5 kg/m2 Dr. Yoseph Fall Work Phone: [facility] 07-22-2023 06:00-0400 Body weight 70.[address] Yoseph Fall Work Phone: [facility] 07-20-2023 05:02-0400 Body height 162.56 cm [facility] 07-20-2023 05:02-0400 Body mass index (BMI) [Ratio] 26.6 kg/m2 [facility] 07-20-2023 05:02-0400 Body weight 70.6 kg [facility] 07-20-2023 05:00-0400 Body temperature 98.9 [degF] [facility] 07-20-2023 05:00-0400 Diastolic blood pressure 72 mm[Hg] [facility] 07-20-2023 05:00-0400 Heart rate 124 /min [facility] 07-20-2023 05:00-0400 Inhaled oxygen flow rate 3.5 L/min [facility] 07-20-2023 05:00-0400 Respiratory rate 24 /min [facility] 07-20-2023 05:00-0400 SaO2% (BldA) [Mass fraction] 93 % [facility] 07-20-2023 05:00-0400 Systolic blood pressure 124 mm[Hg] [facility] 02-19-2023 14:12-0400 Body weight 73.48 kg Yoseph Fall MD Work Phone: [facility] 02-19-2023 14:12-0400 Diastolic blood pressure 78 mm[Hg] Yoseph Fall MD Work Phone: [facility] 02-19-2023 14:12-0400 Heart rate 100 /min Yoseph Fall MD Work Phone: [facility] 02-19-2023 14:12-0400 Respiratory rate 20 /min Yoseph Fall MD Work Phone: [facility] 02-19-2023 14:12-0400 SaO2% (BldA) [Mass fraction] 96 % Yoseph Fall MD Work Phone: [facility] 02-19-2023 14:12-0400 Systolic blood pressure 130 mm[Hg] Yoseph Fall MD Work Phone: [facility] 05-01-2022 14:41-0500 Body weight 78.47 kg Yoseph Fall MD Work Phone: [facility] 05-01-2022 14:41-0500 Diastolic blood pressure 81 mm[Hg] Yoseph Fall MD Work Phone: [facility] 05-01-2022 14:41-0500 Heart rate 105 /min Yoseph Fall MD Work Phone: [facility] 05-01-2022 14:41-0500 Systolic blood pressure 132 mm[Hg] Yoseph Fall MD Work Phone: [facility] 02-20-2022 13:22-0400 Body weight 77.56 kg Respiratory Wstr Work Phone: [facility] 02-20-2022 13:22-0400 Heart rate 108 /min Respiratory Wstr Work Phone: [facility] 02-20-2022 13:22-0400 Respiratory rate 16 /min Respiratory Wstr Work Phone: [facility] 02-20-2022 13:220400 SaO2% (BldA) [Mass fraction] 93 % Respiratory Wstr Work Phone: [facility] Encounters Encounter Date Encounter Type Care Provider Facility Start: 12-26-2024 Non-patient / Non-visit Dr. Dionne Porter MD -[facility] Work Phone: Start: 12-26-2024 Evaluation [...] Refill Request Start: 12-15-2024 End: 12-15-2024 amb[facility] Start: 12-15-2024 End: 12-15-2024 Office consultation new/estab patient 80 min Rubi Corbett MD Work Phone: [facility] Comment on above: Severe aortic stenos is (Primary Dx); Chronic respiratory failure with hypoxia (HCC) Start: 12-15-2024 End: 12-15-2024 ambulatory RUBI ARIC [facility] Start: 12-15-2024 End: 12-15-2024 Encounter for preprocedural cardiovascular examination [facility] Start: 12-15-2024 End: 12-15-2024 Office outpatient new 60 minutes Zaria Shea MD Work Phone: [facility] Comment on above: Preop cardiovascular exam (Primary Dx); Nonrheumatic aortic valve stenosis Start: 12-15-2024 End: 12-15-2024 Patient encounter status Zaria Shea MD Work Phone: [facility] [employer] Start: 12-08-2024 End: 12-08-2024 Refill Yoseph Fall MD Work Phone: [facility] Comment on above: Refill Request Insurance Authorizat ion Start: 11-27-2024 End: 11-27-2024 Telephone encounter Yoseph Fall MD Work Phone: [facility] Comment on above: [place] [facility] Start: 11-24-2024 End: 11-24-2024 Telephone encounter Connor Valeria HOLM Work Phone: [employer] Comment on above: Care Coordination Start: 11-23-2024 End: 11-23-2024 [facility] Gregor Fernandez APRN.RESEARCH ASSISTANT PROFESSOR Work Phone: [employer] Comment on above: [...] Other chronic pain; Dependence on supplemental oxygen; manager long term care (current) use of 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 Refill Request Start: 11-22-2024 End: 11-28-2024 Telephone encounter Zaria Shea MD Work Phone: [facility] [place] Start: 11-21-2024 End: 11-21-2024 ambulatory YOSEPH FALL Facility:[facility] Start: 11-21-2024 End: 11-21-2024 Patient encounter procedure Gregor Fernandez APRN.RESEARCH ASSISTANT PROFESSOR Work Phone: [employer] Comment on above: No-show for appointm ent (Primary Dx); Stage 3 severe COPD by GOLD classification (HCC); Chronic low back pain with sciatica, sciatica laterality unspecified, unspecified back pain laterality Start: 11-21-2024 End: 11-21-2024 Telemedicine consultation with patient Gregor Fernandez CUSTOMS INVESTIGATOR.RESEARCH ASSISTANT PROFESSOR Work Phone: [employer] Start: 11-20-2024 End: 11-24-2024 Telephone encounter Yoseph Fall MD Work Phone: [facility] Comment on above: Patient Update Start: 11-10-2024 End: 11-13-2024 Telephone encounter Yoseph Fall MD Work Phone: [facility] Comment on above: Patient Request; Pat ient Update Start: 11-08-2024 End: 11-08-2024 [facility] Jesus Carter CUSTOMS INVESTIGATOR.RESEARCH ASSISTANT PROFESSOR Work Phone: [employer] Comment on above: NO SHOW (Primary Dx) ; Stage 3 severe COPD by GOLD classification (HCC); Generalized osteoarthrosis, involving multiple sites; Generalized anxiety disorder; Chronic low back pain with sciatica, sciatica laterality unspecified, unspecified back pain laterality Start: 11-03-2024 End: 11-03-2024 Patient encounter procedure Lindsay Whitehead MA -[facility] Work Phone: Start: 11-03-2024 End: 11-03-[address] Yoseph Fall MD Work Phone: -[facility] Start: 10-31-2024 End: 11-01-2024 Refill Yoseph Fall MD Work Phone: [facility] Comment on above: Home Care Management ; Refill Request Start: 10-24-2024 End: 11-03-2024 Telephone encounter Yoseph Fall MD Work Phone: [employer] Comment on above: pall med- [id number]; Ini tial Consult Patient Request order question Start: 10-23-2024 End: 10-23-2024 Telephone encounter Yoseph Fall MD Work Phone: [facility] Comment on above: Patient Update Start: 10-20-2024 End: 10-20-2024 Telephone encounter Yoseph Fall MD Work Phone: [facility] Comment on above: Patient Update; Medi cation Request Start: 10-19-2024 End: 10-20-2024 Telephone encounter Yoseph Fall MD Work Phone: [facility] Comment on above: Patient Update Start: 10-18-2024 End: 10-20-2024 Telephone encounter Yoseph Fall MD Work Phone: [facility] Comment on above: Orders; Occupation T herapy Plan of care (SW Consult); Physical Therapy Plan of Care Start: 10-17-2024 End: 10-17-2024 ambulatory YOSEPH FALL Facility:[facility] Start: 10-17-2024 End: 10-17-2024 Transitional care manage srvc 14 day discharge Yoseph Fall MD Work Phone: [facility] Comment on above: Stage 3 severe COPD by GOLD classification (HCC) (Primary Dx); Chronic low back pain with sciatica, sciatica laterality unspecified, unspecified back pain laterality; Essential hypertension, benign; Tobacco use disorder; Generalized anxiety disorder; Aortic valve stenosis, etiology of cardiac valve disease unspecified Start: 10-13-2024 End: 10-13-2024 Telephone encounter Yoseph Fall MD Work Phone: [facility] Comment on above: PT Delay in Care Ord er Start: 10-12-2024 End: 10-17-2024 Refill Yoseph Fall MD Work Phone: [facility] Comment on above: Refill Request Start: 10-11-2024 End: 10-12-2024 Refill Yoseph Fall MD Work Phone: [facility] Comment on above: Refill Request Start: 10-10-2024 End: 10-12-2024 ambulatory Naima Haines MA [facility] Start: 10-10-2024 End: 10-12-2024 Telephone encounter Yoseph Fall MD Work Phone: [facility] Comment on above: [place] patient updat e Transition Of Care Start: 10-09-2024 Non-patient / Non-visit Dr. Alessandro Palma MD [facility] Work Phone: Start: 10-09-2024 End: 10-10-2024 Telephone encounter Yoseph Fall MD Work Phone: [facility] Comment on above: Patient Update Orders Medication Problem; Patient Update Start: 10-08-2024 Non-patient / Non-visit Dr. Lynne Schafer MD [facility] Work Phone: Start: 10-07-2024 Non-patient / Non-visit Dr. Lynne Schafer MD [facility] Work Phone: Start: 10-07-2024 Non-patient / Non-visit Dr. Michael Plasencia MD [facility] Start: 10-06-2024 Non-patient / Non-visit Dr. Lnyne Schafer MD [facility] Work Phone: Start: 10-06-2024 Non-patient / Non-visit Dr. Michael Plasencia MD [facility] Start: 10-05-2024 Non-patient / Non-visit Dr. Lynne Schafer MD [facility] Work Phone: Start: 10-04-2024 Non-patient / Non-visit Dr. Lynne Schafer MD [facility] Work Phone: Start: 10-04-2024 [facility] Start: 10-03-2024 Non-patient / Non-visit Dr. Lynne Schafer MD [facility] Work Phone: Start: 10-03-2024 [facility] Start: 10-02-2024 ambulatory Dillon Lopez Facility:[facility] Start: 10-02-2024 Non-patient / Non-visit Dr. Dillon geiger MD [facility] Start: 10-02-2024 Non-patient / Non-visit Dr. Lynne Schafer MD [facility] Work Phone: Start: 10-01-2024 Non-patient / Non-visit Dr. April Bolanos MD -[facility] Work Phone: Start: 09-30-2024 Non-patient / Non-visit Dr. April Bolanos MD -[facility] Work Phone: Start: 09-29-2024 ambulatory Dionne Porter Facility :[facility] Start: 09-29-2024 End: 10-09-2024 Evaluation and management of inpatient Dr. Alessandro Palma MD -[facility] Work Phone: Start: 09-29-2024 Evaluation and management of inpatient Dr. Dionne Porter MD -[facility] Work Phone: Start: 09-29-[address] Yoseph Fall MD Work Phone: [facility] Work Phone: Start: 09-29-2024 ambulatory Yoseph Lewis y:[facility] Start: 09-29-2024 Non-patient / Non-visit Dr. Dionne Porter MD -[facility] Work Phone: Start: 09-28-2024 End: 09-28-2024 Refill Yoseph Fall MD Work Phone: [facility] Comment on above: Refill Request Start: 08-29-2024 End: 08-29-2024 Refill Yoseph Fall MD Work Phone: [address] [place] [address] Comment on above: Refill Request Start: 08-15-2024 End: 08-15-2024 Refill Yoseph Fall MD Work Phone: [facility] Comment on above: Refill Request Start: 07-24-2024 End: 07-24-2024 Telephone encounter Yoseph Fall MD Work Phone: [facility] Comment on above: Patient Update; Medi cation Request Start: 07-12-2024 End: 07-12-2024 Telephone encounter Yoseph Fall MD Work Phone: [facility] Comment on above: Chart Notes Start: 07-06-2024 [...] Yoseph Fall MD Work Phone: [facility] [place] Comment on above: Refill Request Start: 06-12-2024 End: 06-12-2024 Telephone encounter Yoseph Fall MD Work Phone: [facility] [place] Comment on above: Forms ([employer]) Start: 06-02-2024 End: 06-07-2024 Telephone encounter Yoseph Fall MD Work Phone: [facility] [place] Comment on above: Insurance Authorizat ion Start: 06-01-2024 End: 06-01-2024 Refill Yoseph Fall MD Work Phone: [facility] [place] Comment on above: Refill Request; Medi cation [...] Telephone encounter Yoseph Fall MD Work Phone: [facility] Comment on above: Patient Question Start: 03-20-2024 End: 03-20-2024 Refill Yoseph Fall MD Work Phone: [facility] Comment on above: Refill Request Start: 03-03-2024 End: 03-03-2024 Refill Yoseph Fall MD Work Phone: [facility] Comment on above: Refill Request Start: 02-14-2024 End: 02-14-2024 Refill Yoseph Fall MD Work Phone: [facility] [place] Comment on above: Refill Request Start: 02-03-2024 End: 02-04-2024 Telephone encounter Yoseph Fall MD Work Phone: [facility] Comment on above: Patient Question Start: 01-18-2024 End: 01-18-2024 Refill Yoseph Fall MD Work Phone: [facility] Comment on above: Refill Request Start: 12-24-2023 End: 12-24-2023 Refill Yoseph Fall MD Work Phone: [facility] Comment on above: Refill Request Start: 11-29-2023 End: 11-29-2023 [facility] Yoseph Fall MD Work Phone: [facility] [place] Comment on above: Stage 3 severe COPD by GOLD classification (HCC) (Primary Dx); Generalized osteoarthrosis, involving multiple sites; Chronic low back pain with sciatica, sciatica laterality unspecified, unspecified back pain laterality; Essential hypertension, benign; Tobacco use disorder; Dysthymic disorder Start: 11-16-2023 Refill Yoseph emmanuel MD Work Phone: [facility] Comment on above: Refill Request Start: 11-08-2023 Telephone encounter Yoseph lei MD Work Phone: [facility] [place] Comment on above: Insurance Authorizat ion Start: 11-05-2023 Refill Yoseph emmanuel MD Work Phone: [facility] [place] Comment on above: Refill Request Start: 10-22-2023 Telephone encounter Yoseph lei MD Work Phone: [address] [place] [address] Comment on above: Medication Request ( Requesting antibiotic) Start: 10-18-2023 Refill Yoseph emmanuel MD Work Phone: [facility] Comment on above: Refill Request Start: 10-01-2023 Telephone encounter Yoseph lei MD Work Phone: [facility] [place] Comment on above: Medication Problem Start: 09-22-2023 Refill Yoseph emmanuel MD Work Phone: [facility] Comment on above: Refill Request Start: 09-15-2023 Refill Yoseph emmanuel MD Work Phone: [facility] Comment on above: Refill Request Start: 08-23-2023 End: 08-23-2023 [facility] Yoseph Fall MD Work Phone: [facility] [place] Comment on above: Stage 3 severe COPD by GOLD classification ([facility]) (Primary Dx); Essential hypertension, benign; Cigarette smoker; Generalized anxiety disorder; Chronic low back pain with sciatica, sciatica laterality unspecified, unspecified back pain laterality Start: 07-27-2023 Refill Yoseph emmanuel MD Work Phone: [facility] Comment on above: Refill Request Start: 07-26-2023 End: 07-26-2023 Patient Outreach Yoseph Fall MD Work Phone: [facility] Comment on above: Transition Of Care Obstructive chronic bronchitis with exacerbation (HCC) (Primary Dx); Stage 3 severe COPD by GOLD classification (HCC); Cigarette smoker; Chronic respiratory failure with hypoxia (HCC) Start: 07-22-2023 Non-patient / Non-visit Dr. Jos Fall Work Phone: [facility] Work Phone: Start: 07-21-2023 Non-patient / Non-visit Dr. Jos Fall Work Phone: [facility] Work Phone: Start: 07-20-2023 End: 07-22-2023 [facility] Start: 07-19-2023 Telephone encounter Yoseph lei MD Work Phone: [facility] Comment on above: Medication Request; Cough Start: 06-28-2023 Refill Yoseph emmanuel MD Work Phone: [facility] [place] Comment on above: Med Change Request Start: 06-17-2023 Telephone encounter Yoseph lei MD Work Phone: [facility] [place] Comment on above: Forms ([employer] re: incontinence supplies) Start: 06-16-2023 ambulatory Yoseph emmanuel MD Work Phone: [facility] [place] Start: 06-15-2023 Telephone encounter Yoseph lei MD Work Phone: [facility] Comment on above: Mouth/Lip Problem Start: 06-14-2023 Telephone encounter Yoseph lei MD Work Phone: [facility] [place] Comment on above: Insurance Authorizat ion Start: 06-11-2023 Refill Yoseph emmanuel MD Work Phone: [facility] Comment on above: Refill Request Start: 03-30-2023 Telephone encounter Yoseph lei MD Work Phone: [facility] [place] Start: 03-17-2023 Refill Yoseph emmanuel MD Work Phone: [facility] Comment on above: Refill Request Start: 02-19-2023 End: 02-19-2023 Patient encounter procedure Yoseph Fall MD Work Phone: [facility] Comment on above: Chronic low back geoffrey n with sciatica, sciatica laterality unspecified, unspecified back pain laterality (Primary Dx); Generalized osteoarthrosis, involving multiple sites; Generalized anxiety disorder; Depression, unspecified depression type; Essential hypertension, benign; Elevated glucose; Stage 3 severe COPD by GOLD classification ([facility]); Gastroesophageal reflux disease, unspecified whether esophagitis present; Chronic obstructive pulmonary disease, unspecified COPD type ([facility]); Uncomplicated asthma, unspecified asthma severity, unspecified whether persistent; Tobacco use disorder; Need for influenza vaccination; Encounter for medication monitoring Start: 01-15-2023 Refill Yoseph emmanuel MD Work Phone: [facility] Comment on above: Refill Request Start: 12-29-2022 Refill Yoseph emmanuel MD Work Phone: [facility] Comment on above: Refill Request Start: 12-10-2022 Telephone encounter Yoseph lei MD Work Phone: [facility] Comment on above: Orders Start: 11-06-2022 Refill Nelson BOWMAN RN.[facility] Work Phone: [facility] Comment on above: Refill Request Start: 11-05-2022 Refill Nelson BOWMAN RN.[facility] Work Phone: [facility] Comment on above: Refill Request Start: 08-21-2022 Telephone encounter oYseph lei MD Work Phone: [facility] Comment on above: Patient Request Start: 07-02-2022 Telephone encounter Yoseph lei MD Work Phone: [facility] Comment on above: Forms (Incontinence supply form) Start: 06-29-2022 Refill Yoseph emmanuel MD Work Phone: [facility] Comment on above: Refill Request Start: 06-08-2022 Refill Yoseph emmanuel MD Work Phone: [facility] Comment on above: Refill Request Start: 05-15-2022 Refill Yoseph emmanuel MD Work Phone: [facility] [place] Comment on above: Refill Request Start: 05-05-2022 Refill Yoseph emmanuel MD Work Phone: [facility] [place] Comment on above: Refill Request Start: 05-01-2022 End: 05-01-2022 [facility] Yoseph Fall MD Work Phone: [facility] [place] Comment on above: Stage 3 severe COPD by GOLD classification (HCC) (Primary Dx); Chronic low back pain with sciatica, sciatica laterality unspecified, unspecified back pain laterality; Chronic respiratory failure with hypoxia (HCC); Essential hypertension, benign; Generalized anxiety disorder; Tobacco use disorder Start: 04-21-2022 Refill Yoseph emmanuel MD Work Phone: [facility] [place] Comment on above: Refill Request Start: 02-27-2022 Telephone encounter Mercedez Zarate PA-C Work Phone: [facility] Comment on above: Orders Start: 02-20-2022 End: 02-20-2022 ambulatory Respiratory Therapist [facility] Work Phone: [facility] Comment on above: Spirometry Start: 02-20-2022 End: 02-20-2022 Patient encounter procedure Respiratory Therapist [facility] Work Phone: [facility] Start: 01-20-2022 Refill Yoseph emmanuel MD Work Phone: [facility] [place] Comment on above: Refill Request Start: 01-13-2022 Orders Only Michelle Guzmán MD Work Phone: [facility] Comment on above: Chronic obstructive pulmonary disease, unspecified COPD type (HCC) (Primary Dx) Start: 01-08-2022 Telephone encounter Michelle Guzmán MD Work Phone: [facility] Comment on above: Orders Start: 12-18-2021 Refill Yoseph emmanuel MD Work Phone: [facility] [place] Comment on above: Refill Request Start: 11-17-2021 Refill Yoseph emmanuel MD Work Phone: [facility] Comment on above: Refill Request Start: 10-17-2021 End: 10-17-2021 [facility] Yoseph Fall MD Work Phone: [facility] Comment on above: Chronic obstructive pulmonary disease, unspecified COPD type (HCC) (Primary Dx); Chronic low back pain with sciatica, sciatica laterality unspecified, unspecified back pain laterality; Essential hypertension, benign; Uncomplicated asthma, unspecified asthma severity, unspecified whether persistent; Generalized anxiety disorder Start: 09-30-2021 Refill Yoseph emmanuel MD Work Phone: [facility] Comment on above: Refill Request Start: 09-15-2021 Refill Yoseph emmanuel MD Work Phone: [facility] [place] Comment on above: Refill Request Start: 08-27-2021 Refill Yoseph emmanuel MD Work Phone: [facility] Comment on above: Refill Request Start: 08-18-2021 Refill Yoseph emmanuel MD Work Phone: [facility] Comment on above: Refill Request Start: 08-01-2021 Orders Only Yoseph emmanuel MD Work Phone: [facility] Comment on above: Essential hypertensi on, [...] fecal hgb deter ia qual feces 1-3 oYseph Fall MD Work Phone: Start: 02-20-2022 Noninvasive ear/pulse oximetry multiple deter Michelle Guzmán MD Work Phone: Start: 02-08-2019 Lipid 1996 panel - Serum or Plasma Yospeh Fall MD Work Phone: Start: 08-06-2016 History of cholecystectomy S/P laparoscopic cholecystectomy Yoseph Fall MD Work Phone: Start: 10-17-2015 Mammography Yoseph Fall MD Work Phone: Plan of Treatment Date Care Activity Detail Author Start: 02-20-2028 Lipid 1996 panel - S avelino or Plasma Lipid Screening [facility] Start: 02-20-2028 Lipid panel [facility] Start: 02-19-2026 Diabetes Screening Diabetes Screenin g [facility] Start: 10-17-2025 Annual PCP Team Humane Officer yakov Disease Visit Annual PCP Team Chronic Disease Visit [facility] Start: 07-06-2025 Annual PCP Team Humane Officer yakov Disease Visit Annual PCP Team Chronic Disease Visit [facility] Start: 07-06-2025 Screening for malign ant neoplasm of breast Mammogram Screening [facility] Comment on above: Postponed from 10/16 (Declined at this time) Start: 04-07-2025 Annual PCP Team Humane Officer yakov Disease Visit Annual PCP Team Chronic Disease Visit [facility] Start: 01-23-2025 End: 01-23-2025 ambulatory 01/23/2025 9:00 AM [employer] [address] [place] [address] [address] [place] [address] Gregor Fernandez APRN.[address] [id number] 2 month@[employer] Comment on above: [id number] 2 month@2month Start: 01-19-2025 End: 01-19-2025 Patient encounter procedure 01/19/2025 2:20 PM EDT Office Visit [facility] [place] [address] [place] [address] Yoseph Fall MD [address] [place], [place] [address] 3 month follow up [facility] Comment on above: 3 month follow up Start: 12-27-2024 [facility] Start: 12-26-2024 Gas panel - Arterial blood [facility] Start: 12-26-2024 Measurement of occul t blood in stool specimen using immunoassay [facility] Start: 12-26-2024 Verification routine [facility] Start: 12-26-2024 Admission procedure [facility] Start: 12-26-2024 Hospital admission, emergency, from emergency room, medical nature [facility] Start: 12-26-2024 End: 12-26-2024 [facility] Start: 12-25-2024 Influenza vaccination [facility] Start: 12-22-2024 Subsequent hospital visit by physician 12/22/2024 Hospital Encounter [facility] [address] [place] [address] [id number] Zaria Shea MD [address] [place] [id number] [facility] Start: 12-15-2024 End: 12-15-2024 Patient encounter procedure [facility] Start: 11-28-2024 Annual PCP Team Humane Officer yakov Disease Visit Annual PCP Team Chronic Disease Visit [facility] Start: 11-23-2024 End: 11-23-2024 ambulatory 11/23/2024 9:00 AM EDT [facility] [employer] [facility] [address] [place] [address] Gregor Fernandez, ABRAHAM.RESEARCH ASSISTANT PROFESSOR [address] [place] [id number] confirmed 11/21/24 [employer] Comment on above: [id number] confirmed 10/25 01/18 mp Start: 11-08-2024 End: 11-08-2024 ambulatory 11/08/2024 2:30 PM EDT [facility] [address] [place] [address] Jesus Carter, CUSTOMS INVESTIGATOR.RESEARCH ASSISTANT PROFESSOR [address] [place] [id number] [employer] Comment on above: [id number] Start: 10-17-2024 End: 10-17-2024 Patient encounter procedure 10/17/2024 2:20 PM EDT Office Visit [facility] [place] [address] [place] [address] Yoseph Fall MD [address] [place], [place] [address] Discharged 10/09/24 [facility] - COPD exacerbation [facility] [place] Comment on above: Discharged 10/09/24 W - COPD exacerbation Start: 10-09-2024 Patient discharge [facility] Start: 10-06-2024 End: 10-06-2024 Referral to service [facility] Start: 10-04-2024 Referral to occupati onal therapist [facility] Start: 10-04-2024 Referral to service [facility] Start: 10-03-2024 Care planning and pr oblem solving actions [facility] Start: 10-03-2024 [facility] Start: 10-02-2024 Care planning and pr oblem solving actions [facility] Start: 10-02-2024 Referral to manager advertising [facility] Start: 10-02-2024 [facility] Start: 09-29-2024 Admission procedure [facility] Start: 09-29-2024 Following clinical p athway protocol [facility] Start: 09-29-2024 Assessment of risk o f venous thromboembolism [facility] Start: 09-29-2024 Inhalation therapy procedure [facility] Start: 09-29-2024 Insertion of cathete r into peripheral vein [facility] Start: 09-29-2024 Introduction of urin asher catheter [facility] Start: 09-29-2024 Measuring intake and output [facility] Start: 09-29-2024 Oxygen therapy [facility] Start: 09-29-2024 Providing care accor ding to standard [facility] Start: 09-29-2024 Provision of activit y privileges [facility] Start: 09-29-2024 Referral to service [facility] Start: 09-29-2024 [facility] Start: 09-29-2024 Respiratory pathogen s DNA and RNA panel - Respiratory specimen by ASPEN with probe detection [facility] Start: 09-29-2024 Verification routine [facility] Start: 09-29-2024 Admission procedure [facility] Start: 09-29-2024 Hospital admission, emergency, from emergency room, medical nature [facility] Start: 08-22-2024 Annual PCP Team Humane Officer yakov Disease Visit Annual PCP Team Chronic Disease Visit [facility] Start: 07-25-2024 Annual PCP Team Humane Officer yakov Disease Visit Annual PCP Team Chronic Disease Visit [facility] Start: 07-12-2024 DIABETES SCREEN DIABETES SCREEN [facility] Start: 07-12-2024 Diabetes Screening Diabetes Screenin g [facility] Start: 07-06-2024 End: 07-06-2024 ambulatory 07/06/2024 2:00 PM EDT [facility] [address] [place], [place] [address] Yoseph Fall MD [address] [place], [place] [id number] 3 mo f/u - Phone visit Family [facility] Comment on above: 3 mo f/u - Phone vis it Start: 05-24-2024 Annual PCP Team Humane Officer yakov Disease Visit Annual PCP Team Chronic Disease Visit [facility] Start: 04-26-2024 Advance Directive Discussion Advance Directive Discussion [facility] Start: 04-26-2024 Medicare Advantage A nnual Wellness Visit Medicare Advantage Annual Wellness Visit [facility] Start: 04-07-2024 End: 04-07-2024 Telephone follow-up 04/07/2024 8:40 AM EST [facility] [place] [address] [place] [id number] Yoseph Fall MD [address] [place] [id number] phone call 4 month follow up [facility] [place] Comment on above: phone call 4 month f ollow up Start: 02-20-2024 Annual PCP Team Humane Officer yakov Disease Visit Annual PCP Team Chronic Disease Visit [facility] Start: 02-20-2024 Diabetes mellitus screening Diabetes Screening [facility] Start: 02-09-2024 Lipid 1996 panel - S avelino or Plasma Lipid Screening [facility] Start: 02-09-2024 LIPID SCREEN LIPID SCREEN [facility] Start: 01-25-2024 Colorectal Cancer Screening Colorectal Cancer Screening [facility] Start: 01-25-2024 Fecal Occult Blood Fecal Occult Bloo d [facility] Start: 01-25-2024 Screening for malign ant neoplasm of colon [facility] Start: 12-26-2023 Covid-19 Vaccine ( season) Covid-19 Vaccine ( season) [facility] Start: 12-26-2023 Influenza vaccination Influenza Vacc ine (#1) [facility] Start: 11-29-2023 End: 11-29-2023 Telephone follow-up 11/29/2023 5:40 PM EDT [facility] [place] [address] [place] [id number] Yoseph Fall MD [address] [place], [place] [id number] phone call-3 month follow up Family [facility] Comment on above: phone call-3 month f ollow up Start: 11-23-2023 End: 11-23-2023 Telephone follow-up 11/23/2023 3:00 PM EDT [facility] [place] [address] [place] [address] Yoseph Fall MD [address] [place] [address] phone call-3 month follow up [facility] [place] Comment on above: phone call-3 month f ollow up Start: 11-14-2023 ANNUAL PCP TEAM TRUST OPERATIONS ASSISTANT YAKOV DISEASE VISIT ANNUAL PCP TEAM CHRONIC DISEASE VISIT [facility] Start: 10-25-2023 DTaP/Tdap/Td Vaccine s (2 - Td or Tdap) DTaP/Tdap/Td Vaccines (2 - Td or Tdap) [facility] Start: 10-25-2023 Urine microalbumin profile [facility] Start: 08-08-2023 ANNUAL PCP TEAM TRUST OPERATIONS ASSISTANT YAKOV DISEASE VISIT ANNUAL PCP TEAM CHRONIC DISEASE VISIT [facility] Start: 07-22-2023 Patient discharge [facility] Start: 07-21-2023 Respiratory microbia l culture Respiratory Culture [facility] Start: 07-20-2023 Thyroid stimulating hormone measurement [facility] Start: 07-20-2023 [facility] Start: 07-20-2023 Following clinical p athway protocol [facility] Start: 07-20-2023 Assessment of risk o f venous thromboembolism [facility] Start: 07-20-2023 Contact precautions [facility] Start: 07-20-2023 Incentive spirometry [facility] Start: 07-20-2023 Insertion of cathete r into peripheral vein [facility] Start: 07-20-2023 Measuring intake and output [facility] Start: 07-20-2023 Oxygen therapy [facility] Start: 07-20-2023 Providing care accor ding to standard [facility] Start: 07-20-2023 Provision of activit y privileges [facility] Start: 07-20-2023 Referral to service [facility] Start: 07-20-2023 Respiratory secretio n precautions [facility] Start: 07-20-2023 Respiratory therapy [facility] Start: 07-20-2023 Tobacco use cessatio n education [facility] Start: 07-20-2023 [facility] Start: 07-20-2023 Verification routine [facility] Start: 07-20-2023 Admission procedure [facility] Start: 07-20-2023 Patient referral to dietitian [facility] Start: 05-01-2023 ANNUAL PCP TEAM TRUST OPERATIONS ASSISTANT YAKOV DISEASE VISIT ANNUAL PCP TEAM CHRONIC DISEASE VISIT [facility] Start: 04-26-2023 Advance Directive Discussion Advance Directive Discussion [facility] Start: 02-19-2023 End: 05-21-2023 CBC W Auto Differential panel - Blood [facility] Work Phone: Comment on above: Expected: 02/19/2023 , Expires: 05/21/2023 Start: 02-19-2023 End: 05-21-2023 Comprehensive metabolic 2000 panel - Serum or Plasma [facility] Work Phone: Comment on above: Expected: 02/19/2023 (Approximate), Expires: 05/21/2023 Start: 02-19-2023 End: 05-21-2023 Hemoglobin A1c in Blood [facility] Work Phone: Comment on above: Expected: 02/19/2023 , Expires: 05/21/2023 Start: 02-19-2023 End: 05-21-2023 LIPID PANEL, NONFASTING [facility] Work Phone: Comment on above: Expected: 02/19/2023 , Expires: 05/21/2023 Start: 02-19-2023 End: 05-21-2023 PAIN PANEL, UR QUANT [facility] Work Phone: Comment on above: Expected: 02/19/2023 , Expires: 05/21/2023 Start: 02-19-2023 End: 05-21-2023 TOX SCREEN ROUT UR [facility] Work Phone: Comment on above: Expected: 02/19/2023 , Expires: 05/21/2023 Start: 01-23-2023 ANNUAL PCP TEAM TRUST OPERATIONS ASSISTANT YAKOV DISEASE VISIT ANNUAL PCP TEAM CHRONIC DISEASE VISIT [facility] Start: 12-25-2022 Covid-19 Vaccine ( season) Covid-19 Vaccine (2022- season) [facility] Start: 12-25-2022 Influenza vaccination [facility] Start: 10-17-2022 ANNUAL PCP TEAM TRUST OPERATIONS ASSISTANT YAKOV DISEASE VISIT ANNUAL PCP TEAM CHRONIC DISEASE VISIT [facility] Start: 08-21-2022 COVID-19 VACCINE (5 - Moderna series) COVID-19 VACCINE (5 - Moderna series) [facility] Start: 07-17-2022 ANNUAL PCP TEAM TRUST OPERATIONS ASSISTANT YAKOV DISEASE VISIT ANNUAL PCP TEAM CHRONIC DISEASE VISIT [facility] Start: 07-17-2022 BP CONTROLLED (<130/80) BP CONTROLLE D (<130/80) [facility] Start: 04-26-2022 ADVANCE DIRECTIVE DISCUSSION ADVANCE DIRECTIVE DISCUSSION [facility] Start: 12-25-2021 Influenza vaccination [facility] Start: 12-12-2021 COVID-19 VACCINE (4 - Booster for Moderna series) COVID-19 VACCINE (4 - Booster for Moderna series) [facility] Start: 10-06-2021 COVID-19 VACCINE (3 - Booster for Moderna series) COVID-19 VACCINE (3 - Booster for Moderna series) [facility] Start: 08-01-2021 End: 10-01-2021 LIPID PANEL BASIC LIPID PANEL BASIC Lab Routine Essential hypertension, benign Elevated glucose Expected: 08/01/2021, Expires: 10/01/2021 [facility] Work Phone: Comment on above: Expected: 08/01/2021 , Expires: 10/01/2021 Start: 07-03-2021 COVID-19 VACCINE (3 - Booster for Moderna series) COVID-19 VACCINE (3 - Booster for Moderna series) [facility] Start: 2020 BONE DENSITY BONE DENSITY [facility] Start: 2020 Bone Density Screening Bone Density Screening [facility] Start: 2020 Screening for osteoporosis Bone Dens ity Screening [facility] Start: 02-14-2020 COLORECTAL CANCER SCREENING COLORECTAL CANCER SCREENING [facility] Start: 02-14-2020 FECAL OCCULT BLOOD FECAL OCCULT BLOO D [facility] Start: 10-16-2016 Mammography [facility] Start: 10-16-2016 Screening for malign ant neoplasm of breast Mammogram Screening [facility] Start: 10-24-2015 PAP TESTING PAP TESTING [facility] Start: 10-24-2015 Screening for malign ant neoplasm of cervix [facility] Start: 2015 RSV Immunization for Adults (1 - Risk 60-74 years 1-dose series) RSV Immunization for Adults (1 - Risk 60-74 years 1-dose series) [facility] Start: 2015 RSV Vaccine (1 - 1-d ose 60+ series) RSV Vaccine (1 - 1-dose 60+ series) [facility] Start: 2015 RSV Vaccine (1 - Ris k 60-74 years 1-dose series) RSV Vaccine (1 - Risk 60-74 years 1-dose series) [facility] Start: 2005 SHINGRIX VACCINE (1 of 2) CASTANON GRIX VACCINE (1 of 2) [facility] Start: 2005 Zoster Vaccines (1 of 2) Zoste r Vaccines (1 of 2) [facility] Start: 2000 COLOGUARD (FIT-DNA) COLOGUARD (FIT-D NA) [facility] Start: 2000 Colonoscopy COLONOSCOPY [facility] Start: [address] COLONOGRAPHY [facility] Start: 2000 Screening for malign ant neoplasm of colon [facility] Start: 2000 SIGMOIDOSCOPY SIGMOIDOSCOPY [facility] Start: 1995 Screening for malign ant neoplasm of breast Mammogram [facility] Start: 1985 Zoledronic acid therapy ALPHA- 1 ANTITRYPSIN DEFICIENCY SCREENING [facility] Start: 1973 BP CONTROLLED (<130/80) BP CONTROLLE D (<130/80) [facility] Start: 1973 Diabetes mellitus screening Diabetes Screening [facility] Start: 1973 Hepatitis C screening Hepatitis C Sc reening [facility] Start: 1967 Depression Monitoring Depression Mon itoring [facility] Start: 1955 Screening for malign ant neoplasm of colon [facility] Start: 1955 Screening for osteoporosis Bone Dens ity Scan [facility] Alanine aminotransfe rase [Enzymatic activity/volume] in Serum or Plasma [facility] Albumin [Mass/volume ] in Serum or Plasma [facility] Alkaline phosphatase [Enzymatic activity/volume] in Serum or Plasma [facility] Anion gap measurement [facility] Aspartate aminotrans ferase [Enzymatic activity/volume] in Serum or Plasma [facility] Bilirubin, total measurement [facility] BUN/Creatinine ratio [facility] Calcium [Mass/volume ] in Serum or Plasma [facility] Carbon dioxide, tota l [Moles/volume] in Serum or Plasma [facility] Chloride [Moles/volu me] in Serum or Plasma [facility] COLOGUARD COLOGUARD Lab Ro utine Screening for colon cancer Ordered: 07/06/2024 [facility] Work Phone: Comment on above: Ordered: 07/06/2024 Creatinine [Moles/vo lume] in Serum or Plasma [facility] End: 06-15-2025 DBT Breast - bilateral screening MICKIE SCREENING W RASHAUN Radiology Routine Encounter for screening mammogram for breast cancer 1 Occurrences starting 05/16/2024 until 06/15/2025 [facility] Work Phone: Comment on above: 1 Occurrences starti ng 05/16/2024 until 06/15/2025 ECG 12 lead - CLINIC PERFORMED ECG 12 lead - CLINIC PERFORMED CV ECG Routine Preop cardiovascular exam 12/15/2024 2:38 PM EDT [employer] Work Phone: Erythrocyte mean corpuscular volume determination [facility] Ferritin [Mass/volum e] in Serum or Plasma [facility] Glucose [Mass/volume ] in Serum or Plasma [facility] Hematocrit [Volume Fraction] of Blood [facility] Hemoglobin [Mass/vol ume] in Blood [facility] Iron [Mass/mass] in Unspecified specimen [facility] Iron saturation [Mas s Fraction] in Serum or Plasma [facility] LEFT AND RIGHT HEART CATH / CORONARY ANGIOGRAPHY LEFT AND RIGHT HEART CATH / CORONARY ANGIOGRAPHY Preop cardiovascular exam [facility] [employer] Leukocytes [#/volume ] in Blood [facility] Magnesium [Mass/volu me] in Serum or Plasma [facility] Magnesium measurement [facility] Mean corpuscular hemoglobin concentration determination [facility] Mean corpuscular hemoglobin determination [facility] Measurement of renal function [facility] End: 07-15-2024 MG Breast Screening MICKIE SCREENING Radiology Routine Encounter for screening mammogram for breast cancer 1 Occurrences starting 06/16/2023 until 07/15/2024 [facility] Work Phone: Comment on above: 1 Occurrences starti ng 06/16/2023 until 07/15/2024 Neutrophil count [facility] Neutrophil percent differential count [facility] End: 02-12-2023 OXIMETRY WITH AMBULATION OXIMETRY WITH AMBULATION PFT Routine Chronic obstructive pulmonary disease, unspecified COPD type (HCC) 1 Occurrences starting 01/13/2022 until 02/12/2023 [facility] Work Phone: Comment on above: 1 Occurrences starti ng 01/13/2022 until 02/12/2023 Patient referral [facility] Work Phone: Platelets [#/volume] in Blood [facility] Potassium [Moles/vol ume] in Serum or Plasma [facility] Red blood cell count [facility] Red cell distributio n width determination [facility] Respiratory pathogen s DNA and RNA panel - Respiratory specimen by ASPEN with probe detection [facility] Serum inorganic phos phate measurement [facility] Sodium [Moles/volume ] in Serum or Plasma [facility] Total iron binding capacity measurement [facility] Total protein measurement [facility] Troponin T.cardiac [Mass/volume] in Serum or Plasma by High sensitivity method [facility] Urea nitrogen [Mass/volume] in Serum or Plasma [facility] Immunizations Immunization Date Immunization Notes Care Provider [facility] 02-19-2023 influenza (HD-IIV4) vaccine, age 65+ yr, high dose, quadrivalent, PF (FLUZONE HIGH-DOSE) Yoseph Fall MD Work Phone: [facility] 02-19-2023 influenza virus vacc ine, unspecified formulation Yoseph Fall MD Work Phone: [facility] 07-17-2021 pneumococcal polysaccharide vaccine, 23 valent Yoseph Fall MD Work Phone: [facility] 02-08-2019 influenza, injectabl e, quadrivalent, contains preservative Yoseph Fall MD Work Phone: [facility] 02-08-2019 influenza virus vacc ine, unspecified formulation Yoseph Fall MD Work Phone: [facility] 05-11-2018 influenza, injectabl e, quadrivalent, contains preservative Yoseph Fall MD Work Phone: [facility] 09-24-2017 pneumococcal conjuga te vaccine, 13 valent Yoseph Fall MD Work Phone: [facility] 02-25-2016 influenza, seasonal, injectable Yoseph Fall MD Work Phone: [facility] Work Phone: 10-24-2013 tetanus toxoid, redu ani diphtheria toxoid, and acellular pertussis vaccine, adsorbed Yoseph Fall MD Work Phone: [facility] 10-22-2013 tetanus toxoid, redu ani diphtheria toxoid, and acellular pertussis vaccine, adsorbed [facility] 03-13-2013 influenza virus vacc ine, unspecified formulation Yoseph Fall MD Work Phone: [facility] 03-09-2013 Influenza virus vaccine [facility] 03-21-2012 pneumococcal polysaccharide vaccine, 23 valent Yoseph Fall MD Work Phone: [facility] 03-21-2012 pneumococcal vaccine , unspecified formulation [facility] 03-17-2010 pneumococcal polysaccharide vaccine, 23 valent Yoseph Fall MD Work Phone: [facility] Work Phone: 03-03-2010 influenza virus vacc ine, unspecified formulation Yoseph Fall MD Work Phone: [facility] 02-10-2008 influenza virus vacc ine, unspecified formulation Yoseph Fall MD Work Phone: [facility] 03-22-2007 influenza virus vacc ine, unspecified formulation Yoseph Fall MD Work Phone: [facility] Work Phone: 04-14-2005 influenza virus vacc ine, unspecified formulation Yoseph Fall MD Work Phone: [facility] Work Phone: 04-13-2005 pneumococcal polysaccharide vaccine, 23 valent Yoseph Fall MD Work Phone: [facility] Work Phone: Payers Date Payer Category Payer Medicare HMO [employer] [id number] 2024 Self-pay [id number] 2024 Unknown [id number] 2017 Medicaid [id number] 2017 Medicare [id number] 2017 Medicare [id number] 2017 Medicare (Managed Care) [employer]UN[employer]FR[employer] MEDICARE [id number] 2015 Unknown [id number] Unknown [id number] 2.16.840.1.692707.3.579.2. 462 Unknown [id number] 2.16.840.1.727403.3.579.2. 462 Unknown [id number] 2.16.840.1.855252.3.579.2. 462 Unknown [id number] 2.16.840.1.996913.3.579.2. 462 Unknown [id number] 2.16.840.1.018728.3.579.2. 462 Unknown [id number] 2.16.840.1.408117.3.579.2. 462 Unknown [id number] 2.16.840.1.487428.3.579.2. 462 Unknown [id number] 2.16.840.1.780474.3.579.2. 462 Unknown [id number] 2.16.840.1.732313.3.579.2. 462 Unknown [id number] 2.16.840.1.020082.3.579.2. 462 Unknown [id number] 2.16.840.1.172666.3.579.2. 462 Unknown [id number] 2.16.840.1.835677.3.579.2. 462 Unknown [id number] 2.16.840.1.478126.3.579.2. 462 Unknown [id number] 2.16.840.1.300197.3.579.2. 462 Unknown [id number] 2.16.840.1.063597.3.579.2. 462 Unknown [id number] 2.16.840.1.327699.3.579.2. 462 Unknown [id number] 2.16.840.1.963387.3.579.2. 462 Unknown [id number] 2.16.840.1.954835.3.579.2. 462 Unknown [id number] 2.16.840.1.068195.3.579.2. 462 Unknown [id number] 2.840.1.839294.3.579.2. 462 Social History Date Type Detail Facility Start: 1969 End: 04-07-2024 Tobacco smoking status NHIS Smokes tobacco daily [facility] Work Phone: Start: 1969 History of tobacco use Cigarette Smo ker [facility] Work Phone: Start: 07-17-2021 End: 11-22-2024 Alcohol intake Current drinker of alcohol (finding) [facility] Start: 10-23-2014 History SDOH Alcohol Comment 12 drinks per week [facility] Start: 1955 Sex Assigned At Not on file [facility] Start: 07-07-2021 End: 10-17-2021 Exposure to SARS-CoV-2 (event) Not sure [facility] Start: 12-07-2019 End: 11-13-2022 Cigarettes smoked current (pack per day) - Reported 1 [facility] Start: 12-07-2019 End: 10-17-2024 Tobacco use and exposure Smokeless tobacco non-user [facility] Start: 08-07-2022 End: 11-13-2022 Tobacco use panel [facility] Start: 03-27-2012 Adult Depression Screening Assessment 0 [facility] Start: 07-20-2023 End: 07-20-2023 Tobacco smoking status NHIS Unknown if ever smoked [facility] Start: 07-20-2023 Sober [facility] Start: 07-20-2023 None [facility] Start: 09-23-2014 Spouse/ Signif icant Other [facility] Start: 07-20-2023 Cigarettes [facility] Start: 1955 Sex Assigned At Female [facility] Start: 09-29-2024 End: 12-26-2024 Tobacco smoking status NHIS Ex-smoker (finding) [facility] Start: 1969 History of tobacco use Current smoke r [facility] Start: 12-15-2024 Alcoholic beverage intake Ex-drinker (finding) [facility] Start: 11-22-2024 Sex Female (finding) [facility] Goals Date Patient Goal Desired Activity /State Personal health goal Functional Status Date Assessment Result Facility 10-09-2024 Functional status Ambulates [facility] Work Phone: 07-22-2023 Functional status Chair [facility] Work Phone: 06-29-2016 Are you deaf, or do you have serious difficulty hearing No 06/29/2016 3:38 PM Nancy Payne RN No [facility] 06-29-2016 Are you blind, or do you have serious difficulty seeing, even when wearing glasses No 06/29/2016 3:38 PM Nancy Payne RN No [facility] 06-29-2016 Do you have serious difficulty walking or climbing stairs Yes 06/29/2016 3:38 PM Nancy Payne RN Yes [facility] 06-29-2016 Do you have difficul ty dressing or bathing No 06/29/2016 3:38 PM Nancy Payne RN No [facility] 06-29-2016 Because of a physica l, mental, or emotional condition, do you have difficulty doing errands alone such as visiting a physician's office or shopping Yes 06/29/2016 3:38 PM Nancy Payne RN Yes [facility] Mental Status Date Assessment Result Facility 10-09-2024 Cognitive function Voice/Name [facility] Work Phone: 07-22-2023 Cognitive function Voice/Name [facility] Work Phone: 06-29-2016 Because of a physica l, mental, or emotional condition, do you have serious difficulty concentrating, remembering, or making decisions No 06/29/2016 3:38 PM Nancy Payne RN No [facility] Clinical Notes 06-30-2016 to 12-26-2024 Note Date & Type Note Facility 12-26-2024 History and physi mavis note [facility] 12-26-2024 Discharge summary [facility] 12-26-2024 Radiology Diagnostic study note [facility] Imaging Services [address] [place] [address] Chest 1 View (Portable) MR#: [id number] Acct: [id number] Name: DENIA GONZALEZ Rep #: [id number] : 1955 F 69 From: Yaa Becerra MD PCP: Dr. Yoseph Fall MD Status: TN E ER Study:Chest 1 View (Portable) Date of Exam: 12/26/24 Exam# [id number] Ordering Dr: Hema Cardona P. PROCEDURE: CHEST [...] acute abnormality. No significant change Reading [id number] CC: Dr. Yoseph Fall MD; ED PHYSICIAN PROVIDER ~ Material Control Specialist: Signed [facility] 12-26-2024 Discharge summary Note Date/Time December 26, 2024 8:00pm [facility] Medical Records Department [address] [place] [address] Emergency Department Summary 12/26/24 MR#: [id number] Acct: [id number] Name: DENIA GONZALEZ Rep #:[id number] : 1955 69 From: Marcel Zarate MD [...] is supposed to have a [facility] within the next several weeks because of a leaky valve, her leg swelling is stable. She has been anticoagulated on apixaban because of A-fib. [facility] Medical History Afib Aortic valve [...] 83.2 H Lymph % (Auto) 11.3 L Trigg % (Auto) 4.5 Eos % (Auto) 0.1 [...] acute abnormality. No significant change Reading [id number] Rhythm Strip Rhythm Strip: Sinus Rhythm Rate: [...] Acute anemia Disposition Disposition: Acute Care Hospital [facility] What to do if you have Problems For any increased pain, shortness of breath, bleeding, nausea or vomiting, chestpain, or any unexpected problems, contact your Primary Care Provider. Call [facility] ([phone]) or report to the closest Emergency Room. Call 911 if necessary. 12/26/241999 <Electronically signed by Marcel Zarate MD> Cosigner Signature (if applicable): CC: Dr. Yoseph Fall MD ~ Signed [facility] Work Phone: 1(909) 428-637809-02-2025 Telephone encounter Note* Telephone Encounter - Ban Villafana LPN - 12/26/2024 9:56 AM EDT Images from the original note were not included. Electronic PA rec'd and completed. Prior authorization approved Payer: [employer] [phone] Note from payer: CaseId:[id number];Status:Approved;Review Type:Prior Auth;Coverage Start Date:11/22/2024;Coverage End Date:12/22/2025; Approval [...] to its destination. To be filled at: [facility] [address] [place] [address] [address] [facility] - [phone] [facility]09-02-2025 Miscellaneous Notes* Telephone Encounter - Ban Villafana LPN - 12/26/2024 9:56 AM EDT Images from the original note were not included. Electronic PA rec'd and completed. Prior authorization approved Payer: [employer] [phone] Note from payer: CaseId:[id number];Status:Approved;Review Type:Prior Auth;Coverage Start Date:11/22/2024;Coverage End Date:12/22/2025; Approval [...] to its destination. To be filled at: [facility] [address] [place] [address] [address] - [phone] [facility] Telephone encounter Note * Telephone Encounter - Judy Bliss RN - 12/22/2024 9:40 AM EDT Daughter in [facility] called and notified that prescription was sent to pharmacy. Voices understanding. Judy Bliss RN [facility]08-29-2025 Miscellaneous Notes* Telephone Encounter - Judy Bliss RN - 12/22/2024 9:40 AM EDT Daughter in Law [facility] called and notified that [...] advise, Judy Bliss RN documented in [facility]25 Telephone encounter Note * Telephone Encounter - Yoseph Fall MD - 12/22/2024 9:22 AM EDT OK for Atarax as ordered Yoseph Fall MD [facility]08-29-2025 Telephone encounter Note* Telephone Encounter - Judy Bliss RN - 12/22/2024 8:57 AM EDT Patient's Daughter In Law [place] calls and states that patient has been itching herself a lot. [place] reports that she is itching herself so much that she is breaking her skin. Patient asking if provider can call in something for the itching? Please review and advise, Judy Bliss RN [facility]08-26-2025 Telephone encounter Note* Telephone Encounter - Naima Haines MA - 12/19/2024 3:21 PM EDT [place] notified. Naima Haines MA [facility]08-26-2025 Miscellaneous Notes* Telephone Encounter - Naima Haines [...] 19, 2024 12:30 PM documented in this encounterMiddletown Hospital08-[facility]-2025 Telephone encounter Note * Telephone Encounter - Yoseph Fall MD - 12/19/2024 2:59 PM EDT OK to refill as ordered OK to increase Buspar to 20 mg bid as ordered to help with increased anxiety Yoseph Fall MD [facility]08-26-2025 Telephone encounter Note* Telephone Encounter - Judy [...] Bliss RN December 19, 2024 12:30 PM [facility]08-22-2025 NotePROCEDURE: L/RHC PROCEDURE DATE: 01/05/25 PROCEDURE TIME: 10 am ARRIVE AT 8:30 am Report to the Central Lounge (first floor) at the hospital entrance at [address] [place] [address]. Nothing to eat or drink after midnight [...] of procedure. Please make arrangements for a reefer truck driver after the procedure. You will [...] call the Prep and Recovery area at [phone]. The schedule is not finalized until the afternoon, so please avoid calling before 4:30 pm.[facility]08-22-2025 NoteDx: Procedure: L/RHC Date/Time: 01/05/25 at 10:00a Surgeon: TATYANA Location: [facility] Admission: OP Anesthesia: N/A Patient agreeable to above date/time. On PB calendar and printed card to start auth.[facility]08-22-2025 History of Present illness Narrative* Rubi Corbett MD - 12/15/2024 3:00 PM EDT Images from the original note were not included. [facility]: Cardiothoracic Surgery Multidisciplinary Heart Valve Clinic Date: 12/14/24 Patient:Denia Gonzalez 1955 69 y.o. female [id number] Subjective: HPI: Denia Gonzalez 69 y.o. referred by SADIQ Aguilar is being evaluated for aortic valve stenosis. Echocardiogram completed on 10/02/24 showed severe aortic valve stenosis with peak/mean gradients 75/50 mm Hg, SASHA 0.85 cm^2. Per note, patient with past medical history significant for COPD, chronic hypoxic respiratory failure, on home O2, HTN, smoker. Patient was admitted to [facility] 09/29/24 for respiratory failureand newly diagnosed A [...] a past medical history of A-fib (CMS/HCC) ([facility]), Anxiety, Aortic stenosis, Asthma, Chronic respiratory failure ([facility]), COPD (chronic obstructive pulmonary disease) ([facility]), Depressed, History of ETOH abuse, HTN (hypertension), [...] were no vitals taken for this visit. @[email or web address]@ Physical Exam Constitutional: Appearance: Normal appearance. HENT: [...] echocardiography,and other diagnostic images. documented in this [facility]08-22-2025 History of Present illness Narrative* Zaria Shea MD - 12/15/2024 2:30 PM EDT Images from the original note were not included. [facility] [address] [facility] [address] Dept: [phone] Dept Visit type: New : 1955 Reason for Visit: New patient, Heart Valve Clinic Assessment and Plan 1. Preop cardiovascular exam - CBC auto differential - Comprehensive metabolic panel - Case Request Exceptional Children Teacher Assistant: Left and right heart cath / coronary [...] by mouth daily., Disp: , Rfl: HYDROcodone-acetaminophen ([place]) 5-325 MG tablet, Take 1 tablet by [...] Father Stomach cancer Father documented in this [facility]08-15-2025 Telephone encounter Note* Telephone Encounter - Ban Villafana LPN - 12/08/2024 10:37 AM EDT Images from the original note were not included. prior authorization approved Payer: [employer] HOME DELIVERY [phone] Note from payer: CaseId:[id number];Status:Approved;Review Type:Prior Auth;Coverage Start Date:11/08/2024;Coverage End Date:12/08/2025; Approval [...] to its destination. To be filled at: [id number] [place] [address] [address] [facility] - [phone] Pharmacy notified. [facility]08-15-2025 Miscellaneous Notes* Telephone Encounter - Ban Villafana LPN - 12/08/2024 10:37 AM EDT Images from the original note were not included. prior authorization approved Payer: [employer] HOME DELIVERY [phone] Note from payer: CaseId:[id number];Status:Approved;Review Type:Prior Auth;Coverage Start Date:11/08/2024;Coverage End Date:12/08/2025; Approval [...] to its destination. To be filled at: [id number] - [place] [address] [address] [facility] - [phone] Pharmacy notified. * Telephone Encounter - Ban Villafana LPN - 12/08/2024 10:31 AM EDT Electronic PA rec'd and completed for cyclobenzaprine (FLEXERIL) 10 mg tablet documented in this encounterMidd[facility]08-[facility]-2025 Telephone encounter Note * Telephone Encounter - Ban Villafana LPN - 12/08/2024 10:31 AM EDT Electronic PA rec'd and completed for cyclobenzaprine (FLEXERIL) 10 mg tablet [facility]08-15-2025 Telephone encounter Note* Telephone Encounter - Nelson Robert APRN.CNP - 12/08/2024 9:26 AM EDT The following approved medication requests have been transmitted electronically. Requested Prescriptions Pending Prescriptions Disp Refills cyclobenzaprine (FLEXERIL) 10 mg tablet 60 tablet 5 Sig: Take 1 tablet by mouth two times a day as needed for muscle spasm. Nelson Robert APRN.CNP [facility]08-15-2025 Miscellaneous Notes* Telephone Encounter - Nelson Robert [...] 08, 2024 9:19 AM documented in this encounterMiddletown Hospital08-15-2025 Telephone encounter Note * Telephone Encounter - [...] Louie RN December 08, 2024 9:19 AM [facility]08-05-2025 Telephone encounter Note* Telephone Encounter - Heena Howell - 11/28/2024 4:15 PM EDT Chart made and ACID CONDITIONER packet mailed [id number] Miscellaneous Notes* Telephone Encounter - Heena Howell - 11/28/2024 4:15 PM EDT Chart made and ACID CONDITIONER packet mailed * Telephone Encounter - Heena Howell - 11/23/2024 1:52 PM EDT Records scanned under Media and paper referral on my desk to make chart * Telephone Encounter - Heena Howell - 11/22/2024 1:08 PM EDT VC appt made I need to make chart and mail ACID CONDITIONER packet. Working on getting records scanned in. documented in this [facility]08-04-2025 Telephone encounter Note* Telephone Encounter - Yoseph Fall MD - 11/27/2024 3:12 PM EDT Noted and agree Yoseph Fall MD [facility]08-04-2025 Miscellaneous Notes* Telephone Encounter - Yoseph Fall MD - 11/27/2024 3:12 PM EDT Noted and agree Yoseph Fall MD * Telephone Encounter - Padmini Abbott RN - 11/27/2024 2:12 PM EDT Rafa with [facility] calling and states he plans to add 1 more visit to pt's plan of care, to discharge patient. No call back needed if provider agreeable with this. Padmini Abbott RN documented in this encounterMidd[facility]own [facility]08-[facility]-2025 Telephone encounter Note * Telephone Encounter - Padmini Abbott RN - 11/27/2024 2:12 PM EDT Rafa with [facility] calling and states he plans to add 1 more visit to pt's plan of care, to discharge patient. No call back needed if provider agreeable with this. Padmini Abbott RN [facility]08-01-2025 Telephone encounter Note* Telephone Encounter - Richard Broussard RN - 11/24/2024 3:30 PM EDT Palliative Medicine at Home Care Coordination New Patient Note My chart note sent. Nurse introduced self and role of Bee Worker in Palliative Medicine. Reviewed contact sheet information and on-call process. Nurse educated patient on medication refill process. Nurse encouraged patient to call with any questions/concerns/symptom related issues. KAMALJIT Shrestha Airborne And Air Delivery Specialist [facility]08-01-2025 Miscellaneous Notes* Telephone Encounter - Richard Broussard RN - 11/24/2024 3:30 PM EDT Palliative Medicine at Home Care Coordination New Patient Note My chart note sent. Nurse introduced self and role of Bee Worker in Palliative Medicine. Reviewed contact sheet information and on-call process. Nurse educated patient on medication refill process. Nurse encouraged patient to call with any questions/concerns/symptom related issues. KAMALJIT Shrestha Airborne And Air Delivery Specialist documented in this encounterMiddletown Hospital08-01-2025 Telephone encounter Note * Telephone Encounter - Connor Shaw LISW - 11/24/2024 11:11 AM EDT November 24, 2024 Opened by mistake, please disregard. ALTA [facility]ast[facility] Social Work [phone] [facility] Work Phone: 1(430) 637-795208-01-2025 Miscellaneous Notes* Telephone Encounter - Connor Shaw LISW - 11/24/2024 11:11 AM EDT November 24, 2024 Opened by mistake, please disregard. ALTA [employer] [facility] Social Work [phone] documented in this encounterMiddletown [facility]08-01-2025 Telephone encounter Note * Telephone Encounter - Yoseph Fall MD - 11/24/2024 10:30 AM EDT OK for doxycycline as ordered Yoseph Fall MD [facility]08-01-2025 Miscellaneous Notes* Telephone Encounter - Yoseph Fall MD - 11/24/2024 10:30 AM EDT OK for doxycycline as ordered Yoseph Fall MD * Telephone Encounter - Naima Haines MA - 11/23/2024 2:50 PM EDT Pt states she still feels like she needs an antibiotic, unable to take Levaquin due to medication interaction. [facility] [place]. Naima Haines MA * Telephone Encounter - Yoseph Fall MD - 11/23/2024 2:33 PM EDT Does she feel that she still needs an antibiotic? Yoseph Fall MD * Telephone Encounter - Sukhi Marrero RN - 11/20/2024 3:14 PM EDT Rafa RN with [facility] calls to let provider know that he [...] Dr. Fall for when returns or if ACID CONDITIONER would review. Sukhi Marrero RN documented in this encounterMiddletown [facility]07-31-2025 Telephone encounter Note * Telephone Encounter - Naima Haines MA - 11/23/2024 2:50 PM EDT Pt states she still feels like she needs an antibiotic, unable to take Levaquin due to medication interaction. [facility] [place]. Naima Haines MA [facility]07-31-2025 Telephone encounter Note* Telephone Encounter - Yoseph Fall MD - 11/23/2024 2:33 PM EDT Does she feel that she still needs an antibiotic? Yoseph Fall MD [facility]07-31-2025 Telephone encounter Note* Telephone Encounter - Yoseph Fall MD - 11/23/2024 2:23 PM EDT OK to refill as ordered Yoseph Fall MD [facility]07-31-2025 Miscellaneous Notes* Telephone Encounter - Yoseph Fall [...] 23, 2024 1:00 PM documented in this encounterMiddletown Hospital07-31-2025 NoteRecords scanned under Media and paper referral on my desk to make [facility] 11-23-2024 Telephone encounter Note* Telephone Encounter - Heena Howell - 11/23/2024 1:52 PM EDT Records scanned under Media and paper referral on my desk to make chart [facility] [id number] Telephone encounter Note* Telephone Encounter - Martínez [...] Louie RN November 23, 2024 1:00 PM [facility]07-31-2025 Instructions* Patient Instructions* Gregor Fernandez APRN.RESEARCH ASSISTANT PROFESSOR - 11/23/2024 9:58 AM EDT Denia, It [...] of breath, or swelling, please contact your manager advertising or go to the emergency room. - COPD and Breathing Support: - Continue using your nebulizer every 6 hours as directed. - Continue taking Spiriva and Singulair as prescribed. - You are doing well with nicotine patches and have stopped smoking. Please continue using the patches as needed. - A social media content specialist will reach out to explore options [...] reach out to your primary care provider, manager advertising,or palliative care team with any concerns. Good luck with your upcoming appointments and tests. Thank You, Gregor Fernandez CNP documented in this encounterMiddletown [facility]07-31-2025 History of Present illness Narrative* Gregor Fernandez APRN.RESEARCH ASSISTANT PROFESSOR - 11/23/2024 7:00 AM EDT PALLIATIVE MEDICINE AT HOME INITIAL CONSULT SERVICE DATE: 11/23/2024 Referring Physician: Yoseph Fall [id number] [facility] [address] Primary Physician: Yoseph Fall MD IDENTIFICATION AND INTRODUCTION: Denia Gonzalez is a 69 year old female This visit took place Virtually; I have communicated my name and active licensure. The patient's identity and physical location were verified at the time of this visit. The patient or their legal sales representative printing has been informed of the risks and benefits of -- and alternatives to -- treatment through a remote evaluation and consents to proceed with the evaluation remotely. The patient is being seen with daughter in law Recording using [employer] software for draft documentation of the visit was discussed with the patient/authorized sales representative printing; all questions welcomed and answered. Patient/authorized sales representative printing agreed to proceed REASON FOR CONSULT: Introduction [...] Pt states she does not see a quality assurance/r&d lab technician, she is not seeing pain management Subjective [...] screening but has not yet seen a quality assurance/r&d lab technician. She uses 3 liters of oxygen and [...] longer distances. She receives home care from [facility] and the [facility] heart team. She manages herown medications but [...] lung, unspecified site (HCC) 04/26/2003 Lung cancer MA (myocardial infarction) (HCC) 10-10 taken to [facility] heart stopped Obstructive chronic bronchitis with exacerbation [...] as directed. Dx: COPD J44.9 Nebulizer Accessories [facility] Mask and supplies as needed PULSE OXIMETER [facility] Use as directed to check oxygen saturation level ammonium lactate (AMLACTIN) 12 % lotion Apply 1 application to affected area as needed for Dry Skin. losartan (COZAAR) 50 mg tablet Take 0.5 tablets by mouth once daily. (Patient not taking: Reported on 11/23/2024) OXYGEN, HOME THERAPY, 2.5 L/min by Nasal Cannula route continuous. Use as directred Disposable Gloves (DISPOSABLE LATEX-FREE GLOVES) [facility] 1 Box once every month. ICD 10: [...] Paternal Grandfather REVIEW OF SYSTEMS: Modified ESAS (Ware Symptom Assessment Scale): Information Provided By: Patient [...] and coordination with other healthcare providers. - can intake worker Connor to reach out to patient regarding [...] patches. - Continue current medication regimen. - can intake worker to assist with obtaining a more portable [...] Dr. Fall to explore referral to a china painter. 4. Generalized anxiety disorder (F41.1) Patient [...] remission. - No current follow-up with a quality assurance/r&d lab technician; consider referral to Dr. Guzmán for ongoing monitoring. 7. Dependence on supplemental oxygen (Z99.81) Patient is dependent on 3L of supplemental oxygen and experiences anxiety about leaving the house due to fear of running out of oxygen. - can intake worker to assist with obtaining a more portable oxygen solution. - Monitor oxygen levels and adjust flow rate as necessary. 8. halfway (current) use of 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 (Z79.52) Patient [...] Medicine Nurse to do telephonic follow-up: No Replenishment Merchandising Associate Services: Telephonic discussion and assessment for community resources: Has portable tanks, is scared to leave her home. Could use a system that is rechargeable such as Inogen. Pt needs to be able to go see specialists such as pulmonology and cardiology Referral to Color Separation Photographer: No, not at this time Recommendations will be communicated back to the consulting service by way of shared electronic medical record. Some elements copied from PCP note dated 10/17/24 , which have been updated where appropriate, and reflect current medical decision making from today, 11/23/24 Gregor Fernandez APRN.CNP November 23, 2024 9:53 AM documented in this encounterMiddletown [facility]07-31-2025 NoteHNO ID: [id number] Author: GREGOR FERNANDEZ APRN.CNP Service: ? Author Type: Nurse Practitioner Type: Progress Notes Filed: 11/23/2024 10:01 Note Text: PALLIATIVE MEDICINE AT HOME INITIAL CONSULT SERVICE DATE: 11/23/2024 Referring Physician: Yoseph Fall [id number] [facility] [address] Primary Physician: Yoseph Fall MD IDENTIFICATION AND INTRODUCTION: Denia Gonzalez is a 69 year old female This visit took place Virtually; I have communicated my name and active licensure. The patient's identity and physical location were verified at the time of this visit. The patient or their legal sales representative printing has been informed of the risks and benefits of -- and alternatives to -- treatment through a remote evaluation and consents to proceed with the evaluation remotely. The patient is being seen with daughter in law Recording using [employer] software for draft documentation of the visit was discussed with the patient/authorized sales representative printing; all questions welcomed and answered. Patient/authorized sales representative printing agreed to proceed REASON FOR CONSULT: Introduction [...] Pt states she does not see a quality assurance/r&d lab technician, she is not seeing pain management Subjective [...] screening but has not yet seen a quality assurance/r&d lab technician. She uses 3 liters of oxygen and [...] longer distances. She receives home care from [facility] and the [facility] heart team. She manages her own medications [...] site (HCC) 04/26/2003 Kera (more content not included)...[facility]07-30-2025 Telephone encounter Note* Telephone Encounter - Heena Howell - 11/22/2024 1:08 PM EDT VC appt made I need to make chart and mail ACID CONDITIONER packet. Working on getting records scanned in. [facility] [id number] NoteHNO ID: [id number] Author: GREGOR FERNANDEZ APRN.CNP Service: ? Author Type: Nurse Practitioner Type: Progress Notes Filed: 11/21/2024 14:29 Note Text: PALLIATIVE MEDICINE AT HOME INITIAL CONSULT SERVICE DATE: 11/21/2024 Referring Physician: SELF Primary Physician: Yoseph Fall MD NO SHOW; sent to [facility]07-28-2025 History of Present illness Narrative* Gregor Fernandez APRN.CNP - 11/20/2024 7:41 PM EDT PALLIATIVE MEDICINE AT HOME INITIAL CONSULT SERVICE DATE: 11/21/2024 Referring Physician: SELF Primary Physician: Yoseph Fall MD NO SHOW; sent to lead embedded software engineer documented in this encounterMiddletown Hospital07-28-2025 Telephone encounter Note * Telephone Encounter - Sukhi Marrero, KAREN - 11/20/2024 3:14 PM EDT Rafa RN with [facility] calls to let provider know that he [...] Dr. Elderbrock for when returns or if ACID CONDITIONER would review. Sukhi Marrero, RN [facility]07-21-2025 Telephone encounter Note* Telephone Encounter - Padmini Abbott RN - 11/13/2024 4:51 PM EDT Mike returned call and given provider's message below. Andres Abbott RN [facility]07-21-2025 Miscellaneous Notes* Telephone Encounter - Padmini Abbott [...] - 11/13/2024 2:08 PM EDT Brenda- nurse- [facility]- phoned to check on pcp reply to message below. Brenda reports when pt was discharged from [facility] she took the prednisone dose prescribed by [facility], and therefor ran out early. Advised message [...] advise. Padmini Abbott RN documented in this encounterMiddletown Hospital07-21-2025 Telephone encounter Note * Telephone Encounter - Naima Haines MA - 11/13/2024 3:46 PM EDT Message left for Mike to call back. Naima Haines MA [facility]07-21-2025 Telephone encounter Note* Telephone Encounter - Yoseph Fall MD - 11/13/2024 3:32 PM EDT New Rx done for 15 mg every day or every other day as needed Yoseph Fall MD [facility]07-21-2025 Telephone encounter Note* Telephone Encounter - Martínez Louie RN - 11/13/2024 2:08 PM EDT Brenda- nurse- [facility]- phoned to check on pcp reply to message below. Brenda reports when pt was discharged from [facility] she took the prednisone dose prescribed by [facility], and therefor ran out early. Advised message below was sent to pcp and we will call pt with his reply. [facility]07-18-2025 Telephone encounter Note* Telephone Encounter - Padmini [...] okay now. Please advise. Padmini Abbott RN [facility]07-11-2025 Telephone encounter Note* Telephone Encounter - Yoseph Fall MD - 11/03/2024 5:04 PM EDT Noted Yoseph Fall MD [facility]07-11-2025 Miscellaneous Notes* Telephone Encounter - Yoseph Fall MD - 11/03/2024 5:04 PM EDT Noted Yoseph Fall MD * Telephone Encounter - Martínez Louie RN - 10/25/2024 1:19 PM EDT Rafa [facility] reports patient asked him to call to [...] - 10/24/2024 4:25 PM EDT Ubaldo with [facility] calls in regard to order for Palliative Care. In regards to DX: Ubaldo reports they can see pt for severe COPD. Ubaldo reports they cannot treat ptfor back pain unless it is in regards to cancer or something like that. Pt would need to see a painspecialist for that. Please review and advise. Jennifer Hennessy LPN documented in this encounterMidd[facility]07-09-2025 Telephone encounter Note * Telephone Encounter - Nelson Robert APRN.CNP - 11/01/2024 10:31 AM EDT Noted for [facility]. Rx sent. The following approved medication requests have been transmitted electronically. Requested Prescriptions Pending Prescriptions Disp Refills nicotine (NICODERM) 14 mg/24 hr 28 patch 5 Sig: apply one patch transdermally as directed every 24 hours Nelson Robert APRN.[place] [facility]07-09-2025 Miscellaneous Notes* Telephone Encounter - Nelson Robert APRN.CNP - 11/01/2024 10:31 AM EDT Noted for [facility]. Rx sent. The following approved medication requests have been transmitted electronically. Requested Prescriptions Pending Prescriptions Disp Refills nicotine (NICODERM) 14 mg/24 hr 28 patch 5 Sig: apply one patch transdermally as directed every 24 hours Nelson Robert APRN.RESEARCH ASSISTANT PROFESSOR * Telephone Encounter - Meenu Gurrola RN - 10/31/2024 3:47 PM EDT Fred nurse with [facility] Home Health calling in plan of care as he did nursing evaluation on patient today. Nursing will continue to see her 1x/week x 3 weeks. He states pt is also requesting a refill on her Nicotine Patch that the hospital prescribed for her. Send to [facility]. Pended. Next appt 01/[address] Fall. documented in this encounterMiddletown Hospital07-08-2025 Telephone encounter Note * Telephone Encounter - Meenu Gurrola RN - 10/31/2024 3:47 PM EDT Fred nurse with [facility] calling in plan of care as he did nursing evaluation on patient today. Nursing will continue to see her 1x/week x 3 weeks. He states pt is also requesting a refill on her Nicotine Patch that the hospital prescribed for her. Send to [facility]. Pended. Next appt 01/[address] Fall. [facility]07-02-2025 Telephone encounter Note* Telephone Encounter - Martínez Louie RN - 10/25/2024 1:19 PM EDT Rafa [facility] reports patient asked him to call to [...] Rafa agreeable and will let pt know. [facility]07-01-2025 Telephone encounter Note* Telephone Encounter - Lindsay Rios RN - 10/24/2024 5:25 PM EDT Rafa with [facility] is calling due to pharmacy unable to fill levaquin due to level 1 severe reaction with the multaq patient takes. When this happened when patient was d/c from [facility] the antibitoc was change to cefdinir 300mg. Rafa needs called back with information along with patient and a different medication sent to pharmacy. [facility]07-01-2025 Miscellaneous Notes* Telephone Encounter - Lindsay Rios RN - 10/24/2024 5:25 PM EDT Rafa with [facility] is calling due to pharmacy unable to fill levaquin due to level 1 severe reaction with the multaq patient takes. When this happened when [facility] [facility] the antibitoc was change to cefdinir 300mg. [...] swelling. Please call patient back with reply. [phone] Padmini Abbott RN documented in this encounterMiddletown [facility]07-[facility]25 Telephone encounter Note * Telephone Encounter - Clarisse Anguiano RN - 10/24/2024 5:00 PM EDT Pt called and is notified of providers message and instructions. Pt voices understanding. Clarisse Anguiano RN [facility]07-01-2025 Telephone encounter Note* Telephone Encounter - Yoseph Fall MD - 10/24/2024 4:55 PM EDT OK to just see her for severe COPD Yoseph Fall MD [facility]07-01-2025 Telephone encounter Note* Telephone Encounter - Yoseph Fall MD - 10/24/2024 4:55 PM EDT OK for another 7 days of Levaquin Yoseph Fall MD [facility]07-01-2025 Telephone encounter Note* Telephone Encounter - Jennifer Hennessy LPN - 10/24/2024 4:25 PM EDT Ubaldo with [facility] calls in regard to order for Palliative Care. In regards to DX: Ubaldo reports they can see pt for severe COPD. Ubaldo reports they cannot treat ptfor back pain unless it is in regards to cancer or something like that. Pt would need to see a painspecialist for that. Please review and advise. Jennifer Hennessy LPN [facility]07-01-2025 Telephone encounter Note* Telephone Encounter - Padmini [...] swelling. Please call patient back with reply. [phone] Padmini Abbott RN [facility]07-01-2025 Telephone encounter Note* Telephone Encounter - Richard [...] and chronic pain [place] [facility] [place] no safety concerns identified by nurse. Richard Broussard RN October 24, 2024 [facility]07-01-2025 Miscellaneous Notes* Telephone Encounter - Richard Broussard [...] and chronic pain Virtual Visit Clinic location: [facility]- no safety concerns identified by nurse. Richard Broussard RN October 24, 2024 documented in this encounterMiddletown Hospital06-30-2025 Telephone encounter Note * Telephone Encounter - Naima Haines MA - 10/23/2024 3:42 PM EDT Rafa notified. Referral faxed, demo, insurance card, OV note, med list faxed to [facility] at [phone] with Palliative Care specified on fax. Naima Haines MA [facility]06-30-2025 Miscellaneous Notes* Telephone Encounter - Naima Haines MA - 10/23/2024 3:42 PM EDT Rafa notified. Referral faxed, demo, insurance card, OV note, med list faxed to [facility] at [phone] with Palliative Care specified on fax. Naima Haines MA * Telephone Encounter - Yoseph Fall MD - 10/23/2024 2:46 PM EDT OK for Palliative Care consult as requested Yoseph Fall MD * Telephone Encounter - Clarisse Anguiano RN - 10/23/2024 1:33 PM EDT Rafa [facility] called in about Pt and states je [...] chronic generalized pain and is on the [place] for it. He states the Pt would like a Palliative care referral for pain and breathing. I told him I don't think they do Palliative care for pain, but for breathing they do. Clarisse Anguiano RN documented in this encounterMiddletown Hospital06-30-2025 Telephone encounter Note * Telephone Encounter - Yoseph Fall MD - 10/23/2024 2:46 PM EDT OK for Palliative Care consult as requested Yoseph Fall MD [facility]-30-[facility] Telephone encounter Note* Telephone Encounter - Clarisse Anguiano RN - 10/23/2024 1:33 PM EDT Rafa [facility] called in about Pt and states je [...] chronic generalized pain and is on the [place] for it. He states the Pt would like a Palliative care referral for pain and breathing. I told him I don't think they do Palliative care for pain, but for breathing they do. Clarisse Anguiano RN [facility]06-27-2025 Telephone encounter Note* Telephone Encounter - Padmini Abbott RN - 10/20/2024 4:43 PM EDT Daughter returned call and given provider's message below. Padmini Abbott RN [facility]06-27-2025 Miscellaneous Notes* Telephone Encounter - Padmini Abbott [...] . Padmini Abbott RN documented in this encounterMiddletown Hospital06-27-2025 Telephone encounter Note * Telephone Encounter - Naima Haines MA - 10/20/2024 4:27 PM EDT Message left for Symontee to call back. Naima Haines MA [facility]06-27-2025 Telephone encounter Note* Telephone Encounter - Yoseph Fall MD - 10/20/2024 4:20 PM EDT OK to start Lasix 20 mg daily as ordered to help with the swelling Yoseph Fall MD [facility]06-27[facility] Telephone encounter Note* Telephone Encounter - Padmini Abbott RN - 10/20/2024 3:41 PM EDT Patient's daughter Sinan Gonzalez calling in, with patient speaking in the background. Reports both of patient's feet have been very swollen for about 3 days now and asking if Dr. Fall will order pt a water pill. Swelling goes up into each ankle area. She has tried contacting [facility] over the past couple of [...] daughter with reply, . Padmini Abbott RN [facility]06-27-2025 Telephone encounter Note* Telephone Encounter - Yoseph Fall MD - 10/20/2024 9:25 AM EDT Noted Palliative Care consult ordered Yoseph Fall MD [facility]-27-[facility] Miscellaneous Notes* Telephone Encounter - Yoseph Fall MD - 10/20/2024 9:25 AM EDT Noted Palliative Care consult ordered Yoseph Fall MD * Telephone Encounter - Martínez Louie, RN - 10/19/2024 12:56 PM EDT Monae- nurse- [facility]- reports she saw patient today. Noted pt [...] referral to palliative care. documented in this encounterMiddletown Hospital06-27-2025 Telephone encounter Note * Telephone Encounter - Yoseph Fall MD - 10/20/2024 9:14 AM EDT Noted and agree Yoseph Fall MD [facility]-27-2025 Miscellaneous Notes* Telephone Encounter - Yoseph Fall MD - 10/20/2024 9:14 AM EDT Noted and agree Yoseph Fall MD * Telephone Encounter - Judy Bliss RN - 10/19/2024 1:05 PM EDT Mercedez PT calling from [facility] to report plan of care for patient [...] 10:43 AM EDT Vilma OT calling from [facility] to report plan of care for patient [...] Advise, Judy Bliss RN documented in this encounterMiddletown Hospital06-26-2025 Telephone encounter Note * Telephone Encounter - Judy Bliss RN - 10/19/2024 1:05 PM EDT Mer[facility]ez PT calling from [facility] to report plan of care for patient and physical therapy will visit patient 1 times a week for first week, 2 times a week for 4 weeks, and 1 time a week for 3 weeks. Physical therapy will work with patient on strength, gait transfers, and balance. No call back needed unless Questions Judy Bliss RN [facility]06-26-2025 Telephone encounter Note* Telephone Encounter - Martínez Louie RN - 10/19/2024 12:56 PM EDT Monae- nurse- [facility]- reports she saw patient today. Noted pt [...] pcp to place referral to palliative care. [facility]06-25-2025 Telephone encounter Note* Telephone Encounter - Judy Bliss RN - 10/18/2024 10:43 AM EDT Vilma OT calling from [facility] to report plan of care for patient [...] Please review and Advise, Judy Bliss RN [facility]06-24-[facility] History of Present illness Narrative* Yoseph Fall [...] visit. Either the patient or their legal sales representative printing has been informed of the risks and benefits of -- and alternatives to -- treatment through a remote evaluation andconsents to proceed with the evaluation remotely. Quit smoking 45 days ago. Is wearing the patch. States for the most part she feels better and thinks her breathing is some better. Has some days when she craves the cigarettes. Pt admitted to [facility] on 09/29/24 if SOB, arrived to ER [...] in 1 month,and Lindsay Whitehead CNP with [facility] in 1 week. Is using 3 L continuous oxygen. Anila getting scheduled for TAVR Is going to be having HH PT come out 3 x a week. She has more pain due to moving around more. Has had nurses out a few times to check her vitals. Is getting set up with Pain Management through Hospice. Below copied from 19pay: History of Present Illness Chief Complaint: Shortness [...] 180 mg twice daily. Discussed with the manager advertising Dr. Hopkins today. Discharge on verapamil and [...] Past Histories independently gathered by the clinical account support rep and the remaining scribed note accurately describes my personal service to the patient. Yoseph Fall MD The documentation for this note was completed by Naima Haines MA acting as scribe for Yoseph Fall MD. October 17, 2024 2:34 PM. Naima Haines MA documented in this encounterMiddletown Hospital06-24-2025 NoteHNO ID: [id number] Author: YOSEPH FALL MD Service: ? Author [...] visit. Either the patient or their legal sales representative printing has been informed of the risks and benefits of -- and alternatives to -- treatment through a remote evaluation and consents to proceed with the evaluation remotely. Quit smoking 45 days ago. Is wearing the patch. States for the most part she feels better and thinks her breathing is some better. Has some days when she craves the cigarettes. Pt admitted to [facility] on 09/29/24 if SOB, arrived to ER [...] Cardio in 1 month, and Lindsay Whitehead RESEARCH ASSISTANT PROFESSOR with [facility] in 1 week. Is using 3 L continuous oxygen. Will be getting scheduled for TAVR Is going to be having HH PT come out 3 x a week. She has more pain due to moving around more. Has had nurses out a few times to check her vitals. Is getting set up with Pain Management through Hospice. Below copied from 19pay: History of Present Illness Chief Complaint: Shortness [...] to maintain sats >90 (more content not included)...[facility]06-20-2025 Telephone encounter Note* Telephone Encounter - Naima Haines MA - 10/13/2024 4:52 PM EDT Edda notified. Naima Haines MA [facility]06-20-2025 Miscellaneous Notes* Telephone Encounter - Naima Haines MA - 10/13/2024 4:52 PM EDT Edda notified. Naima Haines MA * Telephone Encounter - Yoseph Fall MD - 10/13/2024 4:48 PM EDT OK for delay of care order as requested Yoseph Fall MD * Telephone Encounter - Judy Bliss RN - 10/13/2024 4:38 PM EDT Edda from [facility] calls and states that they were supposed to do a PT evaluation this week, however, they are still waiting on insurance. Edda asking for delay care order. Please review and advise, Judy Bliss RN documented in this encounterMiddletown Hospital06-20-2025 Telephone encounter Note * Telephone Encounter - Yoseph Fall MD - 10/13/2024 4:48 PM EDT OK for delay of care order as requested Yoseph Fall MD [facility]-20-20[facility] Telephone encounter Note* Telephone Encounter - Judy Bliss RN - 10/13/2024 4:38 PM EDT Edda from [facility] calls and states that they were supposed to do a PT evaluation this week, however, they are still waiting on insurance. Edda asking for delay care order. Please review and advise, Judy Bliss RN [facility]06-19-2025 Telephone encounter Note* Telephone Encounter - Naima Haines MA - 10/12/2024 11:55 AM EDT Tried to reach pt, VM full, unable to leave message. Naima Haines MA [facility]06-19-2025 Miscellaneous Notes* Telephone Encounter - Naima Haines [...] hydrocodone was given to her 3 x/daily. [place] refilled today #30 to take 1 pill [...] 12, 2024 9:47 AM documented in this encounterMiddletown Hospital06-19-2025 Telephone encounter Note * Telephone Encounter - Yoseph Fall MD - 10/12/2024 11:46 AM EDT She may go back to this dose of prednisone; will review at her appt Yoseph Fall MD [facility]06-19-2025 Telephone encounter Note* Telephone Encounter - Naima Haines MA - 10/12/2024 10:11 AM EDT Per pt Patient states that in the hospital she was given 40 mg of the prednisone for 4 days. Also the hydrocodone was given to her 3 x/daily. [place] refilled today #30 to take 1 pill BID. Do you want to refill for her to increase the dosage to 3 x a day or do you want to discuss furtherat pt appt on 10/17/24 Naima Haines MA [facility]06-19-2025 Telephone encounter Note* Telephone Encounter - Orly [...] Orly Stacy October 12, 2024 9:47 AM [facility]-19[facility] Telephone encounter Note* Telephone Encounter - Yoseph Fall MD - 10/12/2024 9:35 AM EDT OK to refill as ordered Yoseph Fall MD [facility]06-19-2025 Miscellaneous Notes* Telephone Encounter - Yoseph Fall [...] 11, 2024 4:00 PM documented in this encounterMiddletown Hospital06-18-2025 Telephone encounter Note * Telephone Encounter - Judy Blsis RN - 10/11/2024 3:59 PM EDT The [...] Bliss RN October 11, 2024 4:00 PM [facility]-17-[facility] Telephone encounter Note* Telephone Encounter - Naima Haines MA - 10/10/2024 4:46 PM EDT Detailed message left on Rafa's identified VM. Naima Haines MA [facility]06-17-2025 Miscellaneous Notes* Telephone Encounter - Naima Haines MA - 10/10/2024 4:46 PM EDT Detailed message left on Rafa's identified VM. Naima Haines MA * Telephone Encounter - Yoseph Fall MD - 10/10/2024 4:41 PM EDT Noted OK to continue Coreg and inhalers; will monitor Yoseph Fall MD * Telephone Encounter - Martínez Louie RN - 10/10/2024 4:30 PM EDT Rafa- [facility]- reports he did start of care today [...] with pcp on 10/17/24 documented in this encounterMiddletown Hospital06-17-2025 Telephone encounter Note * Telephone Encounter - Yoseph Fall MD - 10/10/2024 4:41 PM EDT Noted OK to continue Coreg and inhalers; will monitor Yoseph Fall MD [facility]-17-2025 Telephone encounter Note* Telephone Encounter - Martínez Louie RN - 10/10/2024 4:30 PM EDT Rafa- [facility]- reports he did start of care [...] for hosp f/u with pcp on 10/17/24 [facility]06-17-2025 NoteHNO ID: [id number] Author: NAIMA HAINES MA Service: ? Author Type: Freelance Makeup Artist Type: Progress Notes Filed: 10/12/2024 09:36 Note Text: TRANSITION CARE MANAGEMENT (TCM) INITIAL CONTACT Freelance Makeup Artist Outreach Provider Action/FYI: 14 Day TCM Started [...] below 50,000 or Hemoglobin drops below 8. [facility] addendum to discharge summary stating that pharmacy raised concern about interaction between the Levaquin and Multaq. Levofloxacin was changed to Cefdinir. Follow up with Pulm, Dr. Guzmán in 1 month. Follow up with Cardio, Dr. Madrid in 1 month Follow up with Cardio ACID CONDITIONER, Lindsay Whitehead in 1 week 10/10/24-Message left [...] of Discharge 10/09/2024 SUMMARY: -Pt discharged from [facility] on 10/09/24. -Admitted for: 1) Aortic Valve Stenosis 2) A-fib Below copied from 19pay: History of Present Illness Chief Complaint: Shortness [...] for TAVR on outp (more content not included)...[facility]06-17-2025 Telephone encounter Note* Telephone Encounter - Naima Haines MA - 10/10/2024 8:24 AM EDT TCM note started. Naima Haines MA [facility]06-17-2025 History of Present illness Narrative* Naima Haines, JOS - 10/10/2024 8:24 AM EDT TRANSITION CARE MANAGEMENT (TCM) INITIAL CONTACT Freelance Makeup Artist Outreach Provider Action/FYI: 14 Day TCM Started on Nicotine patches 14 mg daily, Verapamil changed from 240 mg to 180 mg 1 pill BID, Genuqd760 mg 1 pill BID, Coreg 6.25 mg 1 Pill BID, Levofloxacin 500 mg 1 pill daily x 6 days and Eliquis 5 mg 1 pill BID (discontinue if platelet count drop below 50,000 or Hemoglobin drops below 8. [facility] addendum to discharge summary stating that pharmacy raised concern about interaction between the Levaquin and Multaq. Levofloxacin was changed to Cefdinir. Follow up with Pulm, Dr. Guzmán in 1 month. Follow up with Cardio, Dr. Madrid in 1 month Follow up with Cardio ACID CONDITIONER, Lindsay Whitehead in 1 week 10/10/24-Message left [...] of Discharge 10/09/2024 SUMMARY: -Pt discharged from [facility] on 10/09/24. -Admitted for: 1) Aortic Valve Stenosis 2) A-fib Below copied from 19pay: History of Present Illness Chief Complaint: Shortness [...] 180 mg twice daily. Discussed with the manager advertising Dr. Hopkins today. Discharge on verapamil and [...] below 50,000 or Hemoglobin drops below 8. [facility] addendum to discharge summary stating that pharmacy raised concern about interaction between the Levaquin and Multaq. Levofloxacin was changed to Cefdinir. Were you told to hold any medications? No Were any of your medications discontinued? Yes Verapamil 240 mg [facility] addendum to discharge summary stating that pharmacy [...] for provider to review documented in this encounterMiddletown Hospital06-17-2025 Miscellaneous Notes* Telephone Encounter - Naima Haines [...] PM EDT They may wait until [facility] can get the Multaq tomorrow Yoseph Fall MD * Telephone Encounter - Clarisse Anguiano RN - 10/09/2024 7:20 PM EDT Pt's significant other Mike called in and reports Pt was in the hospital for 11 days and released about an hour and a half ago. He states [facility] in [place] doesn't have the Multaq in stock, but [...] advise. Clarisse Anguiano RN documented in this encounterMiddletown Hospital06-17-2025 NotePatient Outreach (FAMPWS) DENIA GONZALEZ ([id number]) 1955 F Date Time Provider Department 10/10/24 NAIMA HAINESWS During your visit today, we recorded the following information about you: Naima Haines MA 10/12/2024 9:36 AM Signed TRANSITION CARE MANAGEMENT (TCM) INITIAL CONTACT Freelance Makeup Artist Outreach Provider Action/FY: 14 Day TCM Started [...] below 50,000 or Hemoglobin drops below 8. [facility] addendum to discharge summary stating that pharmacy raised concern about interaction between the Levaquin and Multaq. Levofloxacin was changed to Cefdinir. Follow up with Pulm, Dr. Guzmán in 1 month. Follow up with Cardio, Dr. Madrid in 1 month Follow up with Cardio ACID CONDITIONER, Lindsay Whitehead in 1 week 10/10/24-Message left [...] of Discharge 10/09/2024 SUMMARY: -Pt discharged from [facility] on 10/09/24. -Admitted for: 1) Aortic Valve Stenosis 2) A-fib Below copied from 19pay: History of Present Illness Chief Complaint: Shortness [...] and mean peak gradi (more content not included)...[facility]06-16-2025 Telephone encounter Note* Telephone Encounter - Clarisse Anguiano RN - 10/09/2024 7:46 PM EDT Pt's significant other Mike called and is notified of providers message and instructions. He voices understanding. Pt was discharged today you can't do TCM on same day as discharge, you have to waituntil at least 1 day after D/C. Clarisse Anguiano RN [facility]06-16-2025 Telephone encounter Note* Telephone Encounter - Naima Haines MA - 10/09/2024 7:35 PM EDT Message left for pt or significant other Mike to call back. Please start a TCM encounter/note when pt calls back. Has appt for hospital d/c on 10/17/24. Naima Haines MA [facility]06-16-2025 Telephone encounter Note* Telephone Encounter - Yoseph Fall MD - 10/09/2024 7:33 PM EDT They may wait until [facility] can get the Multaq tomorrow Yoseph Fall MD [facility]06-16-2025 Telephone encounter Note* Telephone Encounter - Clarisse Anguiano RN - 10/09/2024 7:20 PM EDT Pt's significant other Mike called in and reports Pt was in the hospital for 11 days and released about an hour and a half ago. He states [facility] in [place] doesn't have the Multaq in stock, but [...] Please call and advise. Clarisse Anguiano, RN [facility]06-16-2025 Discharge summary [facility] Medical Records Department [address] [place] [address] Discharge Summary 10/09/24 1558 MR#: [id number] Acct: [id number] Name: DENIA GONZALEZ Rep #:[id number] : 1955 69 From: Alessandro Liu PCP: Dr. Yoseph Fall MD Status:AD M IN Location: [place] [address] Providers Date of Admission: 09/29/24 Date of [...] mg twice daily. * Discussed with the manager advertising Dr. Hopkins today. Discharge on verapamil and [...] 86.9 H, Lymph % (Auto) 6.9 L, Trigg %(Auto) 5.3, Eos % (Auto) 0.0, Baso [...] Health Service Charges/Coding Visit Charges Inpatient E&M: 23573 Disch Hosp >30min 10/09/24 1606 Cosigner Signature (if applicable): CC: Dr. Yoseph Fall MD; Dr. Alessandro Palma MD~ Signed [facility]06-16-2025 Discharge summary [facility] Medical Records Department [address] [place] [address] Instructions for Home/Discharge Instructions 10/09/24 1542 MR#: [id number] Acct: [id number] Name: DENIA GONZALEZ Rep #:[id number] : 1955 69 From: Alessandro Liu PCP: [...] Porter MD; Dr. Yoseph Fall MD; Dr. Juntio Madrid MD; Dr. Lynne Schafer MD; Dr. Jan Bolanos MD ~ [facility]06-16-2025 [facility] Medical Records Department [address] [place] [address] Discharge Summary 10/09/24 1558 MR#: [id number] Acct: [id number] Name: DENIA GONZALEZ Rep #: [id number] : 1955 69 From: Alessandro Palma MD PCP: Dr. Yoseph Fall MD Status:DIS IN Location: [facility] [id number] Providers Date of Admission: 09/29/24 Date of [...] mg twice daily. * Discussed with the manager advertising Dr. Hopkins today. Discharge on verapamil and [...] buccal Q2H to stop (more content not included)...[facility]06-16-2025 Telephone encounter Note* Telephone Encounter - Naima Haines MA - 10/09/2024 3:56 PM EDT Detailed message left on below's identified and confidential VM. Naima Haines MA [facility]06-16-2025 Miscellaneous Notes* Telephone Encounter - Naima Haines [...] - 10/09/2024 3:09 PM EDT Iman with [facility] calls to ask if provider will follow their HH orders for SN, PT, OT. Patient discharging home today from [facility] after being treated for COPD exacerbation and new onset A-fib. Please call Iman back at [phone]. Sukhi Marrero RN documented in this encounterMiddletown Hospital06-16-2025 Telephone encounter Note * Telephone Encounter - Yoseph Fall MD - 10/09/2024 3:54 PM EDT Yes, I will follow their HH orders for SN, PT, OT Yoseph Fall MD [facility]06-16-2025 Telephone encounter Note* Telephone Encounter - Sukhi Marrero RN - 10/09/2024 3:09 PM EDT Iman with [facility] calls to ask if provider will follow their HH orders for SN, PT, OT. Patient discharging home today from [facility] after being treated for COPD exacerbation and new onset A-fib. Please call Iman back at [phone]. Sukhi Marrero RN [facility]06-16-2025 Telephone encounter Note* Telephone Encounter - Yoseph Fall MD - 10/09/2024 2:09 PM EDT Noted Yoseph Fall MD [facility]06-16-2025 Miscellaneous Notes* Telephone Encounter - Yoseph Fall MD - 10/09/2024 2:09 PM EDT Noted Yoseph Fall MD * Telephone Encounter - Padmini Abbott RN - 10/09/2024 8:39 AM EDT Palma Anguiano with [facility] calling to update provider that patient has been at [facility] since 09/29/24. Padmini Abbott RN documented in this encounterMiddletown Hospital06-16-2025 Telephone encounter Note * Telephone Encounter - Padmini Abbott RN - 10/09/2024 8:39 AM EDT Palma Anguiano with [facility] calling to update provider that patient has been at [facility] since 09/29/24. Padmini Abbott RN [facility]06-15-2025 Progress note Author Lynne Schafer [facility] Note Date/Time October 08, 2024 3:37 pm [facility] Medical Records Department [address] [place] [address] Progress Note 10/08/24 1100 MR#: [id number] Acct: [id number] Name: DENIA GONZALEZ Rep #:[id number] : 1955 69 From: Lynne Schafer MD PCP: Dr. Yoseph Fall MD Status:AD M IN Location: [place] [address] Subjective Subjective Patient seen and examined. Patient [...] 89.1 H, Lymph % (Auto) 5.1 L, Trigg %(Auto) 4.7, Eos % (Auto) 0.0, Baso [...] PO eliquis. Charges/Coding Visit Charges Inpatient E&M: 79326 Subs Hosp L3 10/08/24 5734 <Electronically signed by Lynne Schafer MD> Lynne Schafer MD Cosigner Signature (if applicable): CC: ~ Signed [facility] Work Phone: [phone]) 627-517606-15-2025 Progress note Author Michael Plasencia [facility] Note Date/Time October 08, 2024 2:15 pm [facility] Medical Records Department [address] [place] [address] Progress Note - Cardiology 10/08/24 1058 MR#: [id number] Acct: [id number] Name: DENIA GONZALEZ Rep #:[id number] : 1955 69 From: Michael Plasencia MD PCP: Dr. Yoseph Fall MD Status:AD M IN Location: [place] [address] Objective Data an episode of tachycardia today [...] 89.1 H, Lymph % (Auto) 5.1 L, Trigg %(Auto) 4.7, Eos % (Auto) 0.0, Baso [...] 89.1 H, Lymph % (Auto) 5.1 L, Trigg % (Auto) 4.7, Eos % (Auto) 0.0, [...] 10/08/24 at 1415 Visit Charges Inpatient E&M: 55722 Subs Hosp L3 10/08/24 1415<Electronically signed by Michael Plasencia MD> Cosigner Signature (if applicable): cc: ~* Signed [facility] Work Phone: 1(669) 818-459406-15-2025 Progress note [facility] Medical Records Department [address] [place] [address] Progress Note 10/08/24 1100 MR#: [id number] Acct: [id number] Name: DENIA GONZALEZ Rep #:[id number] : 1955 69 From: Lynne Schafer MD PCP: Dr. Yoseph Fall MD Status:AD M IN Location: [place] [address] Subjective Subjective Patient seen and examined. Patient went into A-fib with RVR today with a heart rate going up to [id number] and 190s. She did complain of palpitations [...] 89.1 H, Lymph % (Auto) 5.1 L, Trigg %(Auto) 4.7, Eos % (Auto) 0.0, Baso [...] PO eliquis. Charges/Coding Visit Charges Inpatient E&M: 65991 [facility] 10/08/24 1537 Lynne Schafer MD Cosigner Signature (if applicable): CC: ~ Signed [facility]06-15-2025 Progress note [facility] Medical Records Department [address] [place] [address] Progress Note - Cardiology 10/08/24 1058 MR#: [id number] Acct: [id number] Name: DENIA GONZALEZ Rep #:[id number] : 1955 69 From: Michael Plasencia MD PCP: Dr. Yoseph Fall MD Status:AD M IN Location: [address] 1 Objective Data an episode of [...] 89.1 H, Lymph % (Auto) 5.1 L, Trigg %(Auto) 4.7, Eos % (Auto) 0.0, Baso [...] 89.1 H, Lymph % (Auto) 5.1 L, Trigg % (Auto) 4.7, Eos % (Auto) 0.0, [...] 10/08/24 at 1415 Visit Charges Inpatient E&M: 21280 [facility] 10/08/24 1415 Cosigner Signature (if applicable): cc: ~* Signed [facility]06-14-2025 Progress note Author Lynne Schafer [facility] Note Date/Time October 07, 2024 6:29 pm [facility] Medical Records Department [address] [place] [address] Progress Note 10/07/24 1413 MR#: [id number] Acct: [id number] Name: MONICOJESUSSheba Bhagat Rep #:[id number] : 1955 69 From: Lynne Schafer MD PCP: Dr. Yoseph Fall MD Status:AD M IN Location: [place] [address] Subjective Subjective Patient seen and examined. She [...] 89.2 H, Lymph % (Auto) 4.3 L, Trigg %(Auto) 5.4, Eos % (Auto) 0.0, Baso [...] by tomorrow. Charges/Coding Visit Charges Inpatient E&M: 84731 Subs Hosp L2 10/07/241 <Electronically signed by Lynne Schafer MD> Lynne Schafer MD Cosigner Signature (if applicable): CC: ~ Signed [facility] Work Phone: 1(512) 622-138706-14-2025 Progress note [facility] Medical Records Department [address] [place] [address] Progress Note 10/07/24 1413 MR#: [id number] Acct: [id number] Name: DENIA GONZALEZ Rep #:[id number] : 1955 69 From: Lynne Schafer MD PCP: Dr. Yoseph Fall MD Status:AD M IN Location: [place] [address] Subjective Subjective Patient seen and examined. She [...] 89.2 H, Lymph % (Auto) 4.3 L, Trigg %(Auto) 5.4, Eos % (Auto) 0.0, Baso [...] by tomorrow. Charges/Coding Visit Charges Inpatient E&M: 79193 Subs Hosp L2 10/07/24 8642 Lynne Schafer MD Cosigner Signature (if applicable): CC: ~ Signed [facility]06-14-2025 Progress note Author Michael Plasencia [facility] Note Date/Time October 07, 2024 3:50 pm [facility] Medical Records Department [address] [place] [address] Progress Note - Cardiology 10/07/24 1059 MR#: [id number] Acct: [id number] Name: DENIA GONZALEZ Rep #:[id number] : 1955 69 From: Michael Plasencia MD PCP: Dr. Yoseph Fall MD Status:AD M IN Location: [place] [address] Objective Data No further episodes overnight Vital [...] 89.2 H, Lymph % (Auto) 4.3 L, Trigg %(Auto) 5.4, Eos % (Auto) 0.0, Baso [...] 89.2 H, Lymph % (Auto) 4.3 L, Trigg % (Auto) 5.4, Eos % (Auto) 0.0, [...] to be atrial flutter she will need [facility]cf anticoagulation for stroke prevention 10/07/24 1338 <Electronically signed by Michael Plasencia MD> Cosigner Signature (if applicable): CC: ~ Signed ADDENDUM by Dr. Michael Plasencia MD on 10/07/24 at 1550 Visit Charges Inpatient E&M: 63509 Subs Hosp L3 10/07/24 1550<Electronically signed by Michael Plasencia MD> Cosigner Signature (if applicable): cc: ~* Signed [facility] Work Phone: 1(978) 810-204806-14-2025 Progress note [facility] Medical Records Department [address] [place] [address] Progress Note - Cardiology 10/07/24 1059 MR#: [id number] Acct: [id number] Name: DENIA GONZALEZ Rep #:[id number] : 1955 69 From: Michael Plasencia MD PCP: Dr. 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 Michael Plasencia MD on 10/07/24 at 1550 Visit Charges Inpatient E&M: 75295 [facility] L3 10/07/24 1550 Cosigner Signature (if applicable): cc: ~* Signed [facility]06-13-2025 Progress note Author Michael Plasencia [facility] Note Date/Time October 06, 2024 9:11 pm [facility] Medical Records Department [address] [place] [address] Progress Note - Cardiology 10/06/24 1422 MR#: [id number] Acct: [id number] Name: DENIA GONZALEZ Rep #:[id number] : 1955 69 From: Michael Plasencia MD PCP: Dr. Yoseph Fall MD Status:AD M IN Location: [place] [address] Subjective Subjective Reports palpitations with these episodes. [...] 90.6 H, Lymph % (Auto) 4.6 L, Trigg %(Auto) 3.9, Eos % (Auto) 0.0, Baso [...] 90.6 H, Lymph % (Auto) 4.6 L, Trigg % (Auto) 3.9, Eos % (Auto) 0.0, [...] stroke evaluation. Charges/Coding Visit Charges Inpatient E&M: 27822 Subs Hosp L3 10/06/242108 <Electronically signed by Michael Plasencia MD> Cosigner Signature (if applicable): CC: ~ Signed ADDENDUM by Dr. Michael Plasencia MD on 10/06/24 at 2111 Addendum If it turns out to be atrial flutter she will need anticoagulation for stroke prevention 10/06/242110<Electronically signed by Michael Plasencia MD> Cosigner Signature (if applicable): cc: ~* Signed [facility] Work Phone: 1(831) 344-580706-13-2025 Progress note [facility] Medical Records Department [address] [place] [address] Progress Note - Cardiology 10/06/24 1422 MR#: [id number] Acct: [id number] Name: DENIA GONZALEZ Rep #:[id number] : 1955 69 From: Michael Plasencia MD PCP: Dr. Yoseph Fall MD Status:AD M IN Location: [place] [address] Subjective Subjective Reports palpitations with these episodes. [...] 90.6 H, Lymph % (Auto) 4.6 L, Trigg %(Auto) 3.9, Eos % (Auto) 0.0, Baso [...] 90.6 H, Lymph % (Auto) 4.6 L, Trigg % (Auto) 3.9, Eos % (Auto) 0.0, [...] stroke evaluation. Charges/Coding Visit Charges Inpatient E&M: 90453 [facility] 10/06/242108 Cosigner Signature (if applicable): CC: ~ Signed ADDENDUM by Dr. Michael Plasencia MD on 10/06/24 at 2111 Addendum If it turns out to be atrial flutter she will need anticoagulation for stroke prevention 10/06/242110 Cosigner Signature (if applicable): cc: ~* Signed [facility]06-13-2025 Progress note Author Lynne Schafer [facility] Note Date/Time October 06, 2024 5:23 pm [facility] Medical Records Department [address] [place] [address] Progress Note 10/06/24 1720 MR#: [id number] Acct: [id number] Name: DENIA GONZALEZ Rep #:[id number] : 1955 69 From: Lynne Schafer MD PCP: Dr. Yoseph Fall MD Status:AD M IN Location: [place] [address]- Subjective Subjective Patient seen and examined today. [...] 90.6 H, Lymph % (Auto) 4.6 L, Trigg %(Auto) 3.9, Eos % (Auto) 0.0, Baso [...] therapeutic Lovenox Charges/Coding Visit Charges Inpatient E&M: 24407 Subs Hosp L2 10/06/24 1723 <Electronically signed by Lynne Schafer MD> Lynne Schafer MD Cosigner Signature (if applicable): CC: ~ Signed [facility] Work Phone: 1(143) 361-532106-13-2025 Progress note [facility] Medical Records Department [address] [place] [address] Progress Note 10/06/24 1720 MR#: [id number] Acct: [id number] Name: DENIA GONZALEZ Rep #:[id number] : 1955 69 From: Lynne Schafer MD PCP: Dr. Yoseph Fall MD Status:AD M IN Location: [place] [address] Subjective Subjective Patient seen and examined today. [...] [facility] Objective Data Vital Signs: [...] 90.6 H, Lymph % (Auto) 4.6 L, Trigg %(Auto) 3.9, Eos % (Auto) 0.0, Baso [...] therapeutic Lovenox Charges/Coding Visit Charges Inpatient E&M: 62769 Subs Hosp L2 10/06/24 1723 Lynne Schafer MD Cosigner Signature (if applicable): CC: ~ Signed [facility]06-12-2025 Progress note Author Lynne [facility] Note Date/Time October 05, 2024 6:28 pm [facility] Medical Records Department [address] [place] [address] Progress Note 10/05/24 1233 MR#: [id number] Acct: [id number] Name: DENIA GONZALEZ Rep #:[id number] : 1955 69 From: Lynne Schafer MD PCP: Dr. Yoseph Fall MD Status:AD M IN Location: [place] [address] Subjective Subjective Patient seen and examined. She [...] 91.1 H, Lymph % (Auto) 5.2 L, Trigg %(Auto) 3.0, Eos % (Auto) 0.0, Baso [...] by tomorrow. Charges/Coding Visit Charges Inpatient E&M: 31442 Subs Hosp L2 10/05/24 8357 <Electronically signed by Lynne Schafer MD> Lynne Schafer MD Cosigner Signature (if applicable): CC: ~ Signed [facility] Work Phone: 1(274) 357-579906-12-2025 Progress note [facility] Medical Records Department [address] [place] [address] Progress Note 10/05/24 1233 MR#: [id number] Acct: [id number] Name: DENIA GONZALEZ Rep #:[id number] : 1955 69 From: Lynne Schafer MD PCP: Dr. Yoseph Fall MD Status:AD M IN Location: [place] [address] Subjective Subjective Patient seen and examined. She [...] 91.1 H, Lymph % (Auto) 5.2 L, Trigg %(Auto) 3.0, Eos % (Auto) 0.0, Baso [...] by tomorrow. Charges/Coding Visit Charges Inpatient E&M: 01177 [facility] L2 10/05/24 6290 Lynne Schafer MD Cosigner Signature (if applicable): CC: ~ Signed [facility]06-11-2025 Progress note Author Lynne [facility] Note Date/Time October 04, 2024 5:59 pm [facility] Medical Records Department [address] [place] [address] Progress Note 10/04/24 1206 MR#: [id number] Acct: [id number] Name: DENIA GONZALEZ Rep #:[id number] : 1955 69 From: Lynne Schafer MD PCP: Dr. Yoseph Fall MD Status:AD M IN Location: [place] [address] Subjective Subjective Patient seen and examined. She [...] 90.1 H, Lymph % (Auto) 6.4 L, Trigg %(Auto) 2.9, Eos % (Auto) 0.0, Baso [...] 24-48 hours. Charges/Coding Visit Charges Inpatient E&M: 38648 Subs Hosp L2 10/04/24 6513 <Electronically signed by Lynne Schafer MD> Lynne Schafer MD Cosigner Signature (if applicable): CC: ~ Signed [facility] Work Phone: 1(617) [phone] Progress note [facility] Medical Records Department [address] [place] [address] Progress Note 10/04/24 1206 MR#: [id number] Acct: [id number] Name: DENIA GONZALEZ Rep #:[id number] : 1955 69 From: Lynne Schafer MD PCP: Dr. Yoseph Fall MD Status:AD M IN Location: [place] [address] Subjective Subjective Patient seen and examined. She [...] 90.1 H, Lymph % (Auto) 6.4 L, Trigg %(Auto) 2.9, Eos % (Auto) 0.0, Baso [...] 24-48 hours. Charges/Coding Visit Charges Inpatient E&M: 16887 Subs Hosp L2 10/04/24 9186 Lynne Schafer MD Cosigner Signature (if applicable): CC: ~ Signed [facility]06-11-2025 Progress note Author uJnito Madrid [facility] Note Date/Time October 04, 2024 10:2 2am [facility] Medical Records Department [address] [place] [address] Progress Note - Cardiology 10/04/24 1014 MR#: [id number] Acct: [id number] Name: DENIA GONZALEZ Rep #:[id number] : 1955 69 From: Junito Madrid MD PCP: Dr. Yoseph Fall MD Status:AD M IN Location: [place] [id number]- 1 Subjective Subjective Patient is resting comfortably [...] 90.1 H, Lymph % (Auto) 6.4 L, Trigg %(Auto) 2.9, Eos % (Auto) 0.0, Baso [...] 90.1 H, Lymph % (Auto) 6.4 L, Trigg % (Auto) 2.9, Eos % (Auto) 0.0, [...] baseline she will be reevaluated inin the [facility] office for further evaluation and [...] tolerated. 3. Patient should follow-up with the [facility] in 2 to 3 weeks after discharge when she is completely cleared of her COPD exacerbation. 4. The patient should call to schedule that appointment with Dr. Madrid or one of the advanced practitioners. 5. From a cardiovascular standpoint the patient should be able to be dischargedonce her COPD exacerbation is controlled. Charges/Coding Visit Charges Inpatient E&M: 91198 Subs Hosp L3 10/04/24 1022 <Electronically signed by Junito Madrid MD> Cosigner Signature (if applicable): CC: ~ Signed [facility] Work Phone: 1(931) 346-842706-11-2025 Progress note [facility] Medical Records Department [address] [place] [address] Progress Note - Cardiology 10/04/24 1014 MR#: [id number] Acct: [id number] Name: DENIA GONZALEZ Rep #:[id number] : 1955 69 From: Junito Madrid MD PCP: Dr. Yoseph Fall MD Status:AD M IN Location: [place] [address] Subjective Subjective Patient is resting comfortably in [...] 90.1 H, Lymph % (Auto) 6.4 L, Trigg %(Auto) 2.9, Eos % (Auto) 0.0, Baso [...] 90.1 H, Lymph % (Auto) 6.4 L, Trigg % (Auto) 2.9, Eos % (Auto) 0.0, [...] baseline she will be reevaluated inin the [facility] office for further evaluation and [...] tolerated. 3. Patient should follow-up with the [facility] in 2 to 3 weeks after discharge when she is completely cleared of her COPD exacerbation. 4. The patient should call to schedule that appointment with Dr. Madrid or one of the advanced practitioners. 5. From a cardiovascular standpoint the patient should be able to be dischargedonce her COPD exacerbation is controlled. Charges/Coding Visit Charges Inpatient E&M: 59726 Subs Hosp L3 10/04/24 1022 Cosigner Signature (if applicable): CC: ~ Signed [facility]06-10-2025 Progress note [facility] Note Date/Time October 03, 2024 5:50 pm [facility] Medical Records Department [address] [place] [address] Progress Note 10/03/24 1218 MR#: [id number] Acct: [id number] Name: DENIA GONZALEZ Rep #:[id number] : 1955 69 From: Lynne Schafer MD PCP: Dr. Yoseph Fall MD Status:AD M IN Location: [place] [address] Subjective Subjective Patient seen and examined with [...] 93.2 H, Lymph % (Auto) 5.2 L, Trigg %(Auto) 1.2, Eos % (Auto) 0.0, Baso [...] therapeutic Lovenox Charges/Coding Visit Charges Inpatient E&M: 94336 Subs Hosp L2 10/03/24 1750 <Electronically signed by Lynne Schafer MD> Lynne Schafer MD Cosigner Signature (if applicable): CC: ~ Signed [facility] Work Phone: 1(154) 720-111806-10-2025 Progress note [facility] Medical Records Department [address] [place] [address] Progress Note 10/03/24 1218 MR#: [id number] Acct: [id number] Name: DENIA GONZALEZ Rep #:[id number] : 1955 69 From: Lynne Schafer MD PCP: Dr. Yoseph Fall MD Status:AD M IN Location: [place] [address] Subjective Subjective Patient seen and examined with [...] 93.2 H, Lymph % (Auto) 5.2 L, Trigg %(Auto) 1.2, Eos % (Auto) 0.0, Baso [...] MD Eufemia Yoseph Performed By: Saray Torrez [facility] Rhythm Strip Rhythm Strip: A-fib Rate: 100 [...] therapeutic Lovenox Charges/Coding Visit Charges Inpatient E&M: 37154 Subs Hosp L2 10/03/24 0256 Lynne Schafer MD Cosigner Signature (if applicable): CC: ~ Signed [facility]06-10-2025 Progress note Author Junito Madrid [facility] Note Date/Time October 03, 2024 8:49 am [facility] Medical Records Department [address] [place] [address] Progress Note - Cardiology 10/03/24839 MR#: [id number] Acct: [id number] Name: DENIA GONZALEZ Rep #:[id number] : 1955 69 From: Junito Madrid MD PCP: Dr. Yoseph Fall MD Status:AD M IN Location: [place] [address] 1 Subjective Subjective Patient is resting comfortably [...] MD Eufemia Yoseph Performed By: Saray Torrez, [facility] Physical Exam Const alert and oriented x3 [...] as tolerated. Charges/Coding Visit Charges Inpatient E&M: 39826 [facility] L3 10/03/24 0849 <Electronically signed by Junito Madrid MD> Cosigner Signature (if applicable): CC: ~ Signed [facility] Work Phone: 1(642) 429-996806-10-2025 Progress note [facility] Medical Records Department [address] [place] [address] Progress Note - Cardiology 10/03/24 0840 MR#: [id number] Acct: [id number] Name: DENIA GONZALEZ Rep #:[id number] : 1955 69 From: Junito Madrid MD PCP: Dr. Yoseph Fall MD Status:AD M IN Location: [facility] [id number]- 1 Subjective Subjective Patient is resting comfortably [...] as tolerated. Charges/Coding Visit Charges Inpatient E&M: 34628 [facility] 10/03/24 0849 Cosigner Signature (if applicable): CC: ~ Signed [facility]06-09-2025 Progress note Author Lynne [facility] Note Date/Time October 02, 2024 6:52p m [facility] Medical Records Department [address] [place] [address] Progress Note 10/02/24 1220 MR#: [id number] Acct: [id number] Name: DENIA GONZALEZ Rep #:[id number] : 1955 69 From: Lynne Schafer MD PCP: Dr. Yoseph Fall MD Status:AD M IN Location: [place] [address]- Subjective Subjective Patient seen and examined. SHe [...] 89.8 H, Lymph % (Auto) 6.1 L, Trigg %(Auto) 3.3, Eos % (Auto) 0.0, Baso [...] therapeutic lovenox Charges/Coding Visit Charges Inpatient E&M: 84562 Subs Hosp L3 10/02/24 1852 <Electronically signed by Lynne Schafer MD> Lynne Schafer MD Cosigner Signature (if applicable): CC: ~ Signed [facility] Work Phone: 1(722) 521-869406-09-2025 Progress note [facility] Medical Records Department [address] [place] [address] Progress Note 10/02/24 1220 MR#: [id number] Acct: [id number] Name: DENIA GONZALEZ Rep #:[id number] : 1955 69 From: Lynne Schafer MD PCP: Dr. Yoseph Fall MD Status:AD M IN Location: [place] [address] Subjective Subjective Patient seen and examined. SHe [...] 89.8 H, Lymph % (Auto) 6.1 L, Trigg %(Auto) 3.3, Eos % (Auto) 0.0, Baso [...] therapeutic lovenox Charges/Coding Visit Charges Inpatient E&M: 95107 [facility] 10/02/24 2869 Lynne Schafer MD Cosigner Signature (if applicable): CC: ~ Signed [facility]06-09-2025 Consult note Author Junito Madrid [facility] Note Date/Time October 02, 2024 10:13 am [facility] Medical Records Department [address] [place] [address] Consultation - Cardiology 10/02/24 1000 MR#: [id number] Acct: [id number] Name: DENIA GONZALEZ Rep #:[id number] : 1955 69 From: Junito Madrid MD PCP: Dr. Yoseph Fall MD Status:AD M IN Location: [place] [address] Assessment & Plan Assessment/Plan (1) Tachycardia: PLAN: [...] cardiovascular issues that she is aware of. [facility] Medical History RLS (restless legs syndrome) History [...] Applicable: No Charges/Coding Visit Charges Inpatient E&M: 31658 Init Hosp L2 Objective Data Vital Signs: [...] 89.8 H, Lymph % (Auto) 6.1 L, Trigg %(Auto) 3.3, Eos % (Auto) 0.0, Baso [...] 89.8 H, Lymph % (Auto) 6.1 L, Trigg % (Auto) 3.3, Eos % (Auto) 0.0, [...] applicable): CC: Dr. Yoseph Fall MD~ Signed [facility] Work Phone: 1(551) 199-786306-09-2025 Consult note [facility] Medical Records Department [address] [place] [address] Consultation - Cardiology 10/02/24 1000 MR#: [id number] Acct: [id number] Name: DENIA GONZALEZ Rep #:[id number] : 1955 69 From: Junito Madrid MD PCP: Dr. Yoseph Fall MD Status:AD M IN Location: [place] [address]- Assessment & Plan Assessment/Plan (1) Tachycardia: PLAN: [...] cardiovascular issues that she is aware of. [facility] Medical History RLS (restless legs syndrome) History [...] Applicable: No Charges/Coding Visit Charges Inpatient E&M: 02648 Init Hosp L2 Objective Data Vital Signs: [...] 89.8 H, Lymph % (Auto) 6.1 L, Trigg %(Auto) 3.3, Eos % (Auto) 0.0, Baso [...] 89.8 H, Lymph % (Auto) 6.1 L, Trigg % (Auto) 3.3, Eos % (Auto) 0.0, [...] applicable): CC: Dr. Yoseph Fall MD~ Signed [facility]06-08-2025 Progress note Author Dionne Porter [facility] Note Date/Time October 01, 2024 9:42p m [facility] Medical Records Department [address] [place] [address] Progress Note - Hospitalist 10/01/24 2141 MR#: [id number] Acct: [id number] Name: DENIA GONZALEZ Rep #:[id number] : 1955 69 From: Dionne Porter MD PCP: Dr. Yoseph Fall MD Status:AD M IN Location: [place] [address] Hospitalist Note Patient with episode tacycardia, rate 160s, went back down to 120s, changing to ipratropium only instead of duonebs, dose with her verapamil now and will assureno active EtOH usage history as prior EtOH abuse. 10/01/242141 <Electronically signed by Dionne Porter MD> Cosigner Signature (if applicable): CC: ~ Signed [facility] Work Phone: 1(429) 401-548406-08-2025 Progress note [facility] Medical Records Department [address] [place] [address] Progress Note - Hospitalist 10/01/242140 MR#: [id number] Acct: [id number] Name: DENIA GONZALEZ Rep #:[id number] : 1955 69 From: Dionne Porter MD PCP: Dr. Yoseph Fall MD Status:AD M IN Location: [place] [address] Hospitalist Note Patient with episode tacycardia, rate 160s, went back down to 120s, changing to ipratropium only instead of duonebs, dose with her verapamil now and will assureno active EtOH usage history as prior EtOH abuse. 10/01/242141 Cosigner Signature (if applicable): CC: ~ Signed [facility]06-08-2025 Progress note Author Jan Bolanos [facility] Note Date/Time October 01, 2024 10:49 am [facility] Medical Records Department [address] [place] [address] Progress Note - Hospitalist 10/01/24 1043 MR#: [id number] Acct: [id number] Name: DENIA GONZALEZ Rep #:[id number] : 1955 69 From: Jan brennan MD PCP: Dr. Yoseph Fall MD Status:AD M IN Location: [place] [address] Subjective Subjective Feels okay but not quite [...] 89.0 H, Lymph % (Auto) 6.8 L, Trigg %(Auto) 3.6, Eos % (Auto) 0.0, Baso [...] DVT: Lovenox Charges/Coding Visit Charges Inpatient E&M: 40347 Subs Hosp L2 10/01/24 1049 <Electronically signed by Jan Bolanos MD> Cosigner Signature (if applicable): CC: ~ Signed [facility] Work Phone: 1(220) 893-370006-08-2025 Progress note [facility] Medical Records Department [address] [place] [address] Progress Note - Hospitalist 10/01/24 1043 MR#: [id number] Acct: [id number] Name: DENIA GONZALEZ Rep #:[id number] : 1955 69 From: Jan brennan MD PCP: Dr. Yoseph Fall MD Status:AD M IN Location: [place] [address] Subjective Subjective Feels okay but not quite [...] 89.0 H, Lymph % (Auto) 6.8 L, Trigg %(Auto) 3.6, Eos % (Auto) 0.0, Baso [...] DVT: Lovenox Charges/Coding Visit Charges Inpatient E&M: 19825 Subs Hosp L2 10/01/24 1049 Cosigner Signature (if applicable): CC: ~ Signed [facility]06-07-2025 Progress note Author Jan Bolanos [facility] Note Date/Time September 30, 2024 1:23p m [facility] Medical Records Department [address] [facility] [place] [address] Progress Note - Hospitalist 09/30/24 1220 MR#: [id number] Acct: [id number] Name: DENIA GONZALEZ Rep #:[id number] : 1955 69 From: Jan brennan MD PCP: Dr. Yoseph Fall MD Status:AD M IN Location: [place] [address]- Subjective Subjective No issues overnight, she still [...] 88.1 H, Lymph % (Auto) 8.0 L, Trigg %(Auto) 3.5, Eos % (Auto) 0.0, Baso [...] DVT: Lovenox Charges/Coding Visit Charges Inpatient E&M: 30716 Subs Hosp L2 09/30/24 1323 <Electronically signed by Jan Bolanos MD> Cosigner Signature (if applicable): CC: ~ Signed [facility] Work Phone: 1(691) 864-628306-07-2025 Progress note [facility] Medical Records Department [facility] [place] [address] Progress Note - Hospitalist 09/30/24 1220 MR#: [id number] Acct: [id number] Name: DENIA GONZALEZ Rep #:[id number] : 1955 69 From: Jan brennan MD PCP: Dr. Yoseph Fall MD Status:AD M IN Location: [place] [address] Subjective Subjective No issues overnight, she still [...] 88.1 H, Lymph % (Auto) 8.0 L, Trigg %(Auto) 3.5, Eos % (Auto) 0.0, Baso % (Auto) 0.0, Absolute Neuts (auto) 6.8, Absolute Lymphs (auto) 0.61 L, Nucleated RBC % 0, Sodium 138, Potassium 4.6, Haheqkor30 L, Carbon Dioxide 33.3 H, Anion Gap [...] DVT: Lovenox Charges/Coding Visit Charges Inpatient E&M: 58503 Subs Hosp L2 09/30/24 1329 Cosigner Signature (if applicable): CC: ~ Signed [place] [address]-06-2025 Evaluation note* Diagnosis Onset Date Resolution Status Admit Date Afib acute September 29, 2024 11:36am Anxiety and depression acute 2024 11:36am Aortic valve stenosis acute Kevin 2024 11:36am Tachycardia acute September 29 11:36am COPD with acute exacerbation chronic September 29, 2024 11:36am Non-small cell lung cancer chronic September 29, 2024 11:36am [facility] Work Phone: 1(978) 510-334406-06-2025 Evaluation note* Diagnosis Onset Date Resolution Status [...] hypertension chroni c November 03, 2024 12:58pm [facility] Work Phone: 1(112) 163-799406-06-2025 Evaluation note* Diagnosis Onset Date Resolution Status [...] acute exacerbation chronic December 26, 2024 8:00pm [facility] Work Phone: 1(254) 147-104306-06-2025 Discharge summary Author Riley Jeff [facility] Note Date/Time September 29, 2024 4:33a martínez [facility] Medical Records Department [address] [place] [address] Emergency Department Summary 09/29/24 MR#: [id number] Acct: [id number] Name: DENIA GONZALEZ Rep #:[id number] : 1955 69 From: Riley Jeff DO [...] Secondary to that she presents for evaluation [facility] Medical History RLS (restless legs [...] 78.5 H Lymph % (Auto) 13.2 L Trigg % (Auto) 6.9 Eos % (Auto) 0.7 [...] of an acute cardiopulmonary abnormality. Reading Location: [facility] Chest x-ray as interpreted by the emergency medicine physician reveals no acute infiltrate pneumothorax or pleural effusion Management Discussion w/another healthcare provider: Hospitalist Discharge Plan Dx/Rx/DC Orders Clinical Impression: COPD with acute exacerbation, Benign essential hypertension, Anxiety and depression Disposition Disposition: Acute Care Hospital [facility] What to do if you have Problems For any increased pain, shortness of breath, bleeding, nausea or vomiting, chestpain, or any unexpected problems, contact your Primary Care Provider. Call [facility] ([phone]) or report to the closest Emergency Room. Call 911 if necessary. 09/29/24 6000 <Electronically signed by Riley Jeff DO> Cosigner Signature (if applicable): CC: Dr. Yoseph Fall MD ~ Signed [facility] Work Phone: 1(419) 419-967406-06-2025 History and physical note Author Dionne Porter [facility] Note Date/Time September 29, 2024 4:32a m [facility] Medical Records Department [address] [place] [address] H&P Exam - Hospitalist 09/29/242 MR#: [id number] Acct: [id number] Name: DENIA GONZALEZ Rep #:[id number] : 1955 69 From: Dionne Porter MD [...] allergic rhinitis, HTN who presents to the [facility] ED on 09/29/2024 with history of ~ [...] 78.5 H, Lymph % (Auto) 13.2 L, Trigg % (Auto) 6.9, Eos % (Auto) 0.7, [...] of an acute cardiopulmonary abnormality. Reading Location: [id number] Assessment & Plan Assessment/Plan (1) COPD with acute exacerbation: PLAN: Plan The patient is a 69 y/o F w/ PMHx: GERD, RLS, Anxiety and Depression, Former tobacco use, Former EtOH Abuse, Hx Non-small cell lung cancer status post right lung lobectomy remotely 2003, COPD/Asthma with Chronic Hypoxic Respiratory Failure with allergic rhinitis, HTN who presents to the [facility] ED on 09/29/2024 with history of ~ [...] Code status. Charges/Coding Visit Charges Inpatient E&M: 47933 Init Hosp L3 09/29/24 0432 <Electronically signed by Dionne Porter MD> Cosigner Signature (if applicable): CC: Dr. Dionne Porter MD; Dr. Yoseph Fall MD~ Signed [facility] Work Phone: 1(465) 651-441306-06-2025 Discharge summary [facility] Medical Records Department [address] [place] [address] Emergency Department Summary 09/29/24 MR#: [id number] Acct: [id number] Name: DENIA GONZALEZ Rep #:[id number] : 1955 69 From: Riley Jeff DO [...] Secondary to that she presents for evaluation [facility] Medical History RLS (restless legs [...] 78.5 H Lymph % (Auto) 13.2 L Trigg % (Auto) 6.9 Eos % (Auto) 0.7 [...] of an acute cardiopulmonary abnormality. Reading Location: [facility] Chest x-ray as interpreted by the emergency medicine physician reveals no acute infiltrate pneumothorax or pleural effusion Management Discussion w/another healthcare provider: Hospitalist Discharge Plan Dx/Rx/DC Orders Clinical Impression: COPD with acute exacerbation, Benign essential hypertension, Anxiety and depression Disposition Disposition: Acute Care Hospital [facility] What to do if you have Problems For any increased pain, shortness of breath, bleeding, nausea or vomiting, chestpain, or any unexpected problems, contact your Primary Care Provider. Call [facility] ([phone]) or report tothe closest Emergency Room. Call 911 if necessary. 09/29/24 0433 Cosigner Signature (if applicable): CC: Dr. Yoseph Fall MD ~ Signed [facility]06-06-2025 History and physical note [facility] Medical Records Department [address] [place] [address] H&P Exam - Hospitalist 09/29/24 0403 MR#: [id number] Acct: [id number] Name: DENIA GONZALEZ Rep #:[id number] : 1955 69 From: Dionne Porter MD [...] allergic rhinitis, HTN who presents to the [facility] ED on 09/29/2024 with history of ~ [...] 78.5 H, Lymph % (Auto) 13.2 L, Trigg % (Auto) 6.9, Eos % (Auto) 0.7, [...] of an acute cardiopulmonary abnormality. Reading Location: [id number] Assessment & Plan Assessment/Plan (1) COPD with acute exacerbation: PLAN: Plan The patient is a 69 y/o F w/ PMHx: GERD, RLS, Anxiety and Depression, Former tobacco use, Former EtOH Abuse, Hx Non-small cell lung cancer status post right lung lobectomy remotely 2003, COPD/Asthma with Chronic Hypoxic Respiratory Failure with allergic rhinitis, HTN who presents to the [facility] ED on 09/29/2024 with history of ~ [...] Code status. Charges/Coding Visit Charges Inpatient E&M: 63439 Init Hosp L3 09/29/24 0432 Cosigner Signature (if applicable): CC: Dr. Dionne Porter MD; Dr. Yoseph Fall MD~ Signed [facility]06-06-2025 Radiology Diagnostic study note [facility] Imaging Services [address] [place], [place] [address] Chest PA and Lateral MR#: [id number] Acct: [id number] Name: DENIA GONZALEZ Rep #: [id number] : 1955 F 69 From: Yaquelin Lindquist MD PCP: Dr. Yoseph Fall MD Status: RE G ER Study:Chest PA and Lateral Date of Exam: 09/29/24 Exam# [id number] Ordering Dr: Silvia Jeff DO PROCEDURE: CHEST [...] of an acute cardiopulmonary abnormality. Reading Location: [id number] CC: Dr. Yoseph Fall MD; Riley Jeff DO ~ Material Control Specialist: Signed [facility]06-05-2025 Telephone encounter Note* Telephone Encounter - Yoseph Fall MD - 09/28/2024 4:57 PM EDT OK to refill as ordered Yoseph Fall MD [facility]06-05-2025 Miscellaneous Notes* Telephone Encounter - Yoseph Fall [...] 28, 2024 4:34 PM documented in [facility] encounterM[facility]06[facility] Telephone encounter Note * Telephone Encounter - [...] Bliss RN September 28, 2024 4:34 PM [facility]2025 Telephone encounter Note* Telephone Encounter - Nelson Robert APRN.CNP - 08/29/2024 11:07 AM EDT The following approved medication requests have been transmitted electronically. Requested Prescriptions Pending Prescriptions Disp Refills ipratropium-albuterol (DUONEB) 0.5 mg-3 mg(2.5 mg base)/3 mL nebu 360 mL 2 Sig: inhale 1 ampule via nebulizer every 4 hours if needed for wheezing. Use over 5 to 15 minutes Nelson Robert APRN.CNP [facility]2025 Miscellaneous Notes* Telephone Encounter - Nelson Robert [...] 29, 2024 10:54 AM documented in this encounterMidd[facility]own Hospital2025 Telephone encounter Note * Telephone Encounter - [...] wheezing. Use over 5 to 15 minutes [facility] August 29, 2024 10:54 AM [facility]04-22-2025 Telephone encounter Note* Telephone Encounter - Nelson [...] 30 days. Authorizing Provider: NELSON ROBERT APRN.CNP [facility]04-22-2025 Miscellaneous Notes* Telephone Encounter - Nelson Robert [...] 15, 2024 10:53 AM documented in this encounterMiddletown Hospital04-22-2025 Telephone encounter Note * Telephone Encounter - [...] Hennessy LPN August 15, 2024 10:53 AM [facility]03-31-2025 Telephone encounter Note* Telephone Encounter - Clarisse Anguiano RN - 07/24/2024 6:11 PM EDT Pt significant other Mike called and is notified of providers results and instructions. He voices understanding. Clarisse Anguiano RN [facility]03-31-2025 Miscellaneous Notes* Telephone Encounter - Clarisse Anguiano [...] rash. He states the Pt has a quill picking machine operator that come in tomorrow and she could try and help the Pt with a VV. He states she usually does phone visits. I told him the provider may need to see the rash. Pt was wanting the provider to order an antibiotic for it. Mike states he knows a cream could probably be called in. Please call and advise Pt. documented in this encounterMiddletown Hospital03-31-2025 Telephone encounter Note * Telephone Encounter - Yoseph Fall MD - 07/24/2024 5:08 PM EDT She may try taking 40 mg of prednisone (she has 10 mg tablets at home) for 3 days and see if this clears up the rash; sounds like an allergic reaction. Yoseph Fall MD [facility]03-31-2025 Telephone encounter Note* Telephone Encounter - Clarisse [...] rash. He states the Pt has a quill picking machine operator that come in tomorrow and she could try and help the Pt with a VV. He states she usually does phone visits. I told him the provider may need to see the rash. Pt was wanting the provider to order an antibiotic for it. Mike states he knows a cream could probably be called in. Please call and advise Pt. [facility]03-19-2025 Telephone encounter Note* Telephone Encounter - Sukhi Marrero RN - 07/12/2024 2:47 PM EDT Jenni with [facility] calls to request chart notes to support patients need for continued oxygen. Most recent visits have all been distant health. Jenni requests most recent visit be faxed. Faxed to [phone] per request. Sukhi Marrero RN [facility]03-19-2025 Miscellaneous Notes* Telephone Encounter - Sukhi Marrero RN - 07/12/2024 2:47 PM EDT Jenni with [facility] calls to request chart notes to support patients need for continued oxygen. Most recent visits have all been distant health. Jenni requests most recent visit be faxed. Faxed to [phone] per request. Sukhi Marrero RN documented in this encounterMiddletown Hospital03-13-2025 History of Present illness Narrative* Yoseph Fall MD - 07/06/2024 2:00 PM EDT [...] visit. Either the patient or their legal sales representative printing has been informed of the risks and benefits of -- and alternatives to -- treatment through a remote evaluation andconsents to proceed with the evaluation remotely. Completing tele-health visit for routine follow up. Pt reports that she has a lady coming from [facility] tomorrow and asking what shots she [...] at 2.5-3 L. Pain: Chronic back; taking Osterburg 5-325 mg 1 pill BID as needed. [...] lung, unspecified site (HCC) 04/26/2003 Lung cancer MA (myocardial infarction) (HCC) 10-10 taken to [facility] heart stopped Obstructive chronic bronchitis with exacerbation [...] as directred Disposable Gloves (DISPOSABLE LATEX-FREE GLOVES) [facility] 1 Box once every month. ICD 10: [...] Nothing since 03/2012. Drug use: No EXAM: [facility] 02/27/2005 Phone visit Health Maintenance List BP [...] Past Histories independently gathered by the clinical account support rep and the remaining scribed note accurately describes my personal service to the patient. 11-20 minutes of time spent on phone call Yoseph Fall MD The documentation for this note was completed by Sanjana Baca MA acting as scribe for Yoseph Fall MD. July 06, 2024 2:02 PM. Sanjana Baca MA documented in this encounterMiddletown Hospital03-13-2025 NoteHNO ID: [id number] Author: YOSEPH FALL MD Service: ? Author [...] visit. Either the patient or their legal sales representative printing has been informed of the risks and benefits of -- and alternatives to -- treatment through a remote evaluation and consents to proceed with the evaluation remotely. Completing tele-health visit for routine follow up. Pt reports that she has a lady coming from [facility] tomorrow and asking what shots she [...] at 2.5-3 L. Pain: Chronic back; taking Osterburg 5-325 mg 1 pill BID as needed. [...] lung, unspecified site (HCC) 04/26/2003 Lung cancer MA (myocardial infarction) (HCC) 10-10 taken to [facility] heart stopped Obstructive chronic bronchitis with exacerbation [...] muscle spasm. montelukast (SINGULAIR) (more content not included)...[facility] 06-22-2024 Telephone encounter Note* Telephone Encounter - [...] Watson LPN June 22, 2024 10:53 AM [facility]02-27-2025 Miscellaneous Notes* Telephone Encounter - Brynn Watson [...] 22, 2024 10:53 AM documented in this encounterMiddletown Hospital02-24-2025 Telephone encounter Note * Telephone Encounter - Yoseph Fall MD - 06/19/2024 12:48 PM EST OK to refill as ordered Yoseph Fall MD [facility]02-24-2025 Miscellaneous Notes* Telephone Encounter - Yoseph Fall [...] 19, 2024 9:31 AM documented in this encounterMiddletown Hospital02-24-2025 Telephone encounter Note * Telephone Encounter - [...] Mora LPN June 19, 2024 9:31 AM [facility]02-17-2025 Telephone encounter Note* Telephone Encounter - Sanjana Baca MA - 06/12/2024 3:39 PM EST Form completed and faxed back to information below. Sanjana Baca MA [facility]02-17-2025 Miscellaneous Notes* Telephone Encounter - Sanjana Baca MA - 06/12/2024 3:39 PM EST Form completed and faxed back to information below. Sanjana Baca MA * Telephone Encounter - Sanjana Baca MA - 06/12/2024 12:44 PM EST Type of form: Medical Necessity for incontinence supplies. Form received via fax When form is completed, Fax form to [phone] Form has been forwarded to Physician Desk: Dr. Eufemia Bcaa MA documented in this encounterMiddletown Hospital02-17-2025 Telephone encounter Note * Telephone Encounter - Sanjana Baca MA - 06/12/2024 12:44 PM EST Type of form: Medical Necessity for incontinence supplies. Form received via fax When form is completed, Fax form to [phone] Form has been forwarded to Physician Desk: Dr. Eufemia Baca MA [facility]02-07-2025 Telephone encounter Note* Telephone Encounter - Ban VillafanaLAURIE - 06/02/2024 8:11 AM EST Images from the original note were not included. Electronic PA rec'd and completed for cyclobenzaprine. This was denied. Note from payer: CaseId:[id number];Status:Denied;Review Type:Prior Auth;Appeal Information: Attention:ATTN: [employer] [address] [address],[place],[address] WebAddress:[email or web address]; Important - Please read the below note [...] for a decision on the appeal.; Payer: [employer] HOME [employer]IVERY [phone] Electronic appeal: Supported View History Notes Time [...] to its destination. To be filled at: [facility] [address] - [place] [address] [address] [facility] - [phone] [facility]02-07-2025 Miscellaneous Notes* Telephone Encounter - Ban Villafana LPN - 06/02/2024 8:11 AM EST Images from the original note were not included. Electronic PA rec'd and completed for cyclobenzaprine. This was denied. Note from payer: CaseId:[id number];Status:Denied;Review Type:Prior Auth;Appeal Information: Attention:ATTN: MED[employer] [address] [address],[place], [place],[address] WebAddress:[email or web address]; Important - Please read the below note [...] for a decision on the appeal.; Payer: [employer] HOME DELIVERY [phone] Electronic appeal: Supported View History Notes Time [...] to its destination. To be filled at: [facility] [address] [place] [address] [address] [facility] - [phone] documented in this encounterMiddletown Hospital02-06-2025 Telephone encounter Note * Telephone Encounter - Yoseph Fall MD - 06/01/2024 3:18 PM EST OK to refill as ordered Yoseph Fall MD [facility]02-06-2025 Miscellaneous Notes* Telephone Encounter - Yoseph Fall [...] 01, 2024 2:45 PM documented in this encounterMiddletown Hospital02-06-2025 Telephone encounter Note * Telephone Encounter - [...] Gurrola RN June 01, 2024 2:45 PM [facility]01-21-2025 Telephone encounter Note* Telephone Encounter - Yoseph Fall MD - 05/16/2024 10:33 AM EST OK to refill as ordered Yoseph Fall MD [facility]01-21-2025 Miscellaneous Notes* Telephone Encounter - Yoseph Fall [...] 16, 2024 10:31 AM documented in this encounterMiddletown Hospital01-21-2025 Telephone encounter Note * Telephone Encounter - [...] Marrero RN May 16, 2024 10:31 AM [facility]01-21-2025 NotePatient Outreach (FAMPWS) DENIA GONZALEZ ([id number]) 1955 F Date Time Provider Department 05/16/24 YOSEPH FALL During your visit today, we recorded the following information about you: Allergies As of Date: 05/16/2024 (No Known Allergies) Date Reviewed: 04/07/2024 Reviewed by: Sanjana Baca MA - Fully Assessed Visit Diagnosis:Encounter for screening mammogram for breast cancer [Z12.31] Order(s):MICKIE MARINO W RASHAUN [[id number]] Order #: [id number] FUTURE Prescriptions as of 06/16/2024 - cyclobenzaprine [...] directed. Dx: COPD J44.9 - Nebulizer Accessories [facility] Mask and supplies as needed - PULSE O[facility]ER [facility] Use as directed to check oxygen saturation level - ammonium lactate (AMLACTIN) 12 % lotion Apply 1 application to affected area as needed for Dry Skin. - losartan (COZAAR) 50 mg tablet Take 0.5 tablets by mouth once daily. - OXYGEN, HOME THERAPY, 2.5 L/min by Nasal Cannula route continuous. Use as directred - Disposable Gloves (DISPOSABLE LATEX-FREE GLOVES) [facility] 1 Box once every month. ICD 10: [...] [Z51.81] 05/16/2021 Chronic respiratory failure with hypoxia ([facility]) *02/20/2022 Cigarette smoker [F17.210] 02/20/2022 Obstructive chronic bronchitis with exacerbatio* Encounter Status:Closed by [employer] BopSANDRINEUSER on 06/16/24[facility] 04-10-2024 Telephone encounter Note* Telephone Encounter - Nelson Robert APRN.CNP - 04/10/2024 12:37 PM EST The following approved medication requests have been transmitted electronically. Requested Prescriptions Pending Prescriptions Disp Refills tiotropium (SPIRIVA) 18 mcg inhalation capsule 30 capsule 11 Sig: Inhale 1 capsule as instructed once daily. Nelson Robert APRN.CNP [facility]12-16-2024 Miscellaneous Notes* Telephone Encounter - Nelson Robert [...] 10, 2024 12:21 PM documented in this encounterMiddletown Hospital12-16-2024 Telephone encounter Note * Telephone Encounter - [...] Bliss RN April 10, 2024 12:21 PM [facility]12-13-2024 History of Present illness Narrative* Yoseph Fall [...] visit. Either the patient or their legal sales representative printing has been informed of the risks and benefits of -- and alternatives to -- treatment through a remote evaluation andconsents to proceed with the evaluation remotely. Tobacco - halfway use of cigarettes, but is working very hard on cutting down. Notes increased usage due to stress. Dog recently , grand daughter in hospital. GI/Uro - Denies any stomach, bowel or urinary issues. GERD - Symptoms stable with use of Prilosec 20 mg once daily. Pain - Chronic back pain that is currently being treated with O[place]burg 5-325 mg 1 tab po bid prn. [...] beagle of 14 years.Also notes granddaughter in [facility]. Trying to learn to live her [...] lung, unspecified site (HCC) 04/26/2003 Lung cancer MA (myocardial infarction) (HCC) 10-10 taken to [facility] heart stopped Obstructive chronic bronchitis with exacerbation [...] as directred Disposable Gloves (DISPOSABLE LATEX-FREE GLOVES) [facility] 1 Box once every month. ICD 10: [...] Past Histories independently gathered by the clinical account support rep and the remaining scribed note accurately describes my personal service to the patient. 11-20 minutes of time spent on phone call Yoseph Fall MD The documentation for this note was completed by Sanjana Baca MA acting as scribe for Yoseph Fall MD. April 07, 2024 8:48 AM. Sanjana Baca MA documented in this encounterMiddletown Hospital12-13-2024 NoteHNO ID: [id number] Author: YOSEPH FALL MD Service: ? Author [...] visit. Either the patient or their legal sales representative printing has been informed of the risks and benefits of -- and alternatives to -- treatment through a remote evaluation and consents to proceed with the evaluation remotely. Tobacco - halfway use of cigarettes, but is working very hard on cutting down. Notes increased usage due to stress. Dog recently , grand daughter in hospital. GI/Uro - Denies any stomach, bowel or urinary issues. GERD - Symptoms stable with use of Prilosec 20 mg once daily. Pain - Chronic back pain that is currently being treated with O[place] 5-325 mg 1 tab po bid prn. [...] of 14 years. Also notes granddaughter in [facility]. Trying to learn to live her [...] lung, unspecified site (HCC) 04/26/2003 Lung cancer MA (myocardial infarction) (HCC) 10-10 taken to [facility] heart stopped Obstructive chronic bronchitis with exacerbation [...] HISTORY Procedure Laterality Date CONIZATION CERVIX W/WO DANHI RPR ELTRD EXC 2003 Dr. Danis BRYSON [...] File Prior to Visit (more content not included)...[facility]11-27-2024 Telephone encounter Note* Telephone Encounter - Vickie Niño LPN - 03/22/2024 9:03 AM EST left message to notify patient that med has been sent into pharmacy. Vickie Niño LPN [facility]11-27-2024 Miscellaneous Notes* Telephone Encounter - Vickie Niño [...] advise, Judy Bliss RN documented in this encounterMiddletown Hospital11-27-2024 Telephone encounter Note * Telephone Encounter - Iman Person APRN.CNP - 03/22/2024 8:51 AM EST The following approved medication requests have been transmitted electronically. Requested Prescriptions Signed Prescriptions Disp Refills amoxicillin (AMOXIL) 875 mg tablet 20 tablet 0 Sig: Take 1 tablet by mouth two times a day for 10 days. Authorizing Provider: IMAN PERSON APRN.CNP [facility]11-26-2024 Telephone encounter Note* Telephone Encounter - [...] Please review and advise, Judy Bliss RN [facility]11-25-2024 Telephone encounter Note* Telephone Encounter - [...] 30 days. Authorizing Provider: NELSON ROBERT APRN.CNP [facility]11-25-2024 Miscellaneous Notes* Telephone Encounter - Nelson [...] 20, 2024 12:49 PM documented in this encounterMidd[facility]11-25-[facility]24 Telephone encounter Note * Telephone Encounter - [...] Marrero RN March 20, 2024 12:49 PM [facility]11-08-2024 Telephone encounter Note* Telephone Encounter - Nelson Robert APRN.CNP - 03/03/2024 11:53 AM EST The following approved medication requests have been transmitted electronically. Requested Prescriptions Pending Prescriptions Disp Refills predniSONE (DELTASONE) 10 mg tablet 30 tablet 5 Sig: Take 1.5 tablets by mouth every other day. Nelson Robert APRN.CNP [facility]11-08-2024 Miscellaneous Notes* Telephone Encounter - Nelson [...] last office visit in the department: 11/29/2023- [facility] Does the patient have a future office visit with this provider/department: No Visit date not found Requested Prescriptions Pending Prescriptions Disp Refills predniSONE (DELTASONE) 10 mg tablet 30 tablet 5 Sig: Take 1.5 tablets by mouth every other day. Judy Bliss RN March 03, 2024 11:23 AM documented in this encounterMiddletown Hospital11-08-2024 Telephone encounter Note * Telephone Encounter - [...] last office visit in the department: 11/29/2023- [facility] Does the patient have a future office visit with this provider/department: No Visit date not found Requested Prescriptions Pending Prescriptions Disp Refills predniSONE (DELTASONE) 10 mg tablet 30 tablet 5 Sig: Take 1.5 tablets by mouth every other day. Judy Bliss RN March 03, 2024 11:23 AM [facility]10-21-2024 Telephone encounter Note* Telephone Encounter - Nelson [...] 15 minutes Authorizing Provider: NELSON ROBERT APRN.CNP [facility]10-21-2024 Miscellaneous Notes* Telephone Encounter - Nelson Robert [...] 14, 2024 11:28 AM documented in this encounterMiddletown Hospital10-21-2024 Telephone encounter Note * Telephone Encounter - [...] Watson LPN February 14, 2024 11:28 AM [facility]10-11-2024 Telephone encounter Note* Telephone Encounter - Lauren Duarte MA - 02/04/2024 8:25 AM EDT Pt informed, verbalized understanding. Lauren Duarte MA [facility]10-11-2024 Miscellaneous Notes* Telephone Encounter - Lauren Duarte [...] advise, Judy Bliss RN documented in this encounterMiddletown Hospital10-11-2024 Telephone encounter Note * Telephone Encounter - Yoseph Fall MD - 02/04/2024 8:16 AM EDT OK for amoxicillin as ordered. If she does not improve over the weekend she would need to be seen. Yoseph Fall MD [facility]10-10-2024 Telephone encounter Note* Telephone Encounter - Judy [...] Please review and advise, Judy Bliss RN [facility]10-10-2024 Telephone encounter Note* Telephone Encounter - Martínez [...] to for evaluation. Patient and daughter agreeable. [facility]10-10-2024 Miscellaneous Notes* Telephone Encounter - Martínez Louie [...] Patient and daughter agreeable. documented in this encounterMiddletown Hospital09-24-2024 Telephone encounter Note * Telephone Encounter - [...] 30 days. Authorizing Provider: NELSON ROBERT APRN.CNP [facility]09-24-2024 Miscellaneous Notes* Telephone Encounter - Nelson Robert [...] 18, 2024 9:25 AM documented in this encounterMiddletown Hospital09-24-2024 Telephone encounter Note * Telephone Encounter - [...] Marrero RN January 18, 2024 9:25 AM [facility]08-30-2024 Telephone encounter Note* Telephone Encounter - Yoseph Fall MD - 12/24/2023 9:48 AM EDT OK to refill as ordered Yoseph Fall MD [facility]08-30-2024 Miscellaneous Notes* Telephone Encounter - Yoseph Fall [...] 24, 2023 9:26 AM documented in this encounterMiddletown Hospital08-30-2024 Telephone encounter Note * Telephone Encounter - Giovanna Jhonson - 12/24/2023 9:25 AM EDT Prescription Refill [...] Giovanna Carrillo December 24, 2023 9:26 AM [facility] Work Phone: 1(446) 740-139308-05-2024 History of Present illness Narrative* Yoseph Fall [...] visit. Either the patient or their legal sales representative printing has been informed of the risks and [...] Pain: Chronic pain; is being weaned off [place] 5-325 mg down to#32/month, taking 1 pill BID prn. Also uses Flexeril 10 mg BID prn. Worried pain will not be controlled on anything less than 2 norco perday. At times pain gets bad, having to use Tylenol. Wishes her Osterburg would be increased. GERRY/Depression: Stable, still has [...] lung, unspecified site (HCC) 04/26/2003 Lung cancer [place] (myocardial infarction) (HCC) 10-10 taken to [facility] heart stopped Obstructive chronic bronchitis with exacerbation ([facility]) COPD Other abnormal Papanicolaou smear of cervix [...] as directred Disposable Gloves (DISPOSABLE LATEX-FREE GLOVES) [facility] 1 Box once every month. ICD 10: [...] call Yoseph Fall MD documented in this encounterMiddletown Hospital07-23-2024 Telephone encounter Note * Telephone Encounter - Yoseph Fall MD - 11/16/2023 1:32 PM EDT OK to refill as ordered Yoseph Fall MD [facility]-23-2024 Miscellaneous Notes* Telephone Encounter - Yoseph Fall [...] 16, 2023 12:02 PM documented in this encounterMiddletown Hospital07-23-2024 Telephone encounter Note * Telephone Encounter - [...] Marrero RN November 16, 2023 12:02 PM [facility]07-15-2024 Telephone encounter Note* Telephone Encounter - Ban [...] drug. This restriction has been approved by [facility]. This restriction only applies to patients greater [...] this decision on the coverage criteria for: [address]455 EDGAR Standard MEDD Prior Authorization Policy - HIGH RISK MEDICATIONS - CYCLOBENZAPRINE [facility]07-15-2024 Miscellaneous Notes* Telephone Encounter - Ban Villafana [...] the Centers for Medicare and Medicaid Services ([facility]) for use in evaluating Part D coverage. Your plan's formulary has a restriction on this drug. This restriction has been approved by [facility]. This restriction only applies to patients greater [...] this decision on the coverage criteria for: [address]361 EDGAR Standard MEDD Prior Authorization Policy - HIGH RISK MEDICATIONS - CYCLOBENZAPRINE documented in this encounterMiddletown Hospital07-12-2024 Telephone encounter Note * Telephone Encounter - Iman Person APRN.CNP - 11/05/2023 12:07 PM EDT The following approved medication requests have been transmitted electronically. Requested Prescriptions Pending Prescriptions Disp Refills cyclobenzaprine (FLEXERIL) 10 mg tablet 60 tablet 0 Sig: Take 1 tablet by mouth two times a day as needed for muscle spasm. Iman Person APRN.CNP [facility]07-12-2024 Miscellaneous Notes* Telephone Encounter - Iman Person [...] 05, 2023 11:51 AM documented in this encounterMiddletown Hospital07-12-2024 Telephone encounter Note * Telephone Encounter - [...] Mora LPN November 05, 2023 11:51 AM [facility]06-28-2024 Telephone encounter Note* Telephone Encounter - Brynn Watson LPN - 10/22/2023 2:21 PM EDT Phoned patient and went over notes from Dr Fall with understanding. Aware rx sent to pharmacy. [facility]06-28-2024 Miscellaneous Notes* Telephone Encounter - Brynn Watson [...] Notify pt with providers decision. [facility]. Naima Haines MA * Telephone Encounter - [...] with cough. Please advise. documented in this encounterMiddletown Hospital06-28-2024 Telephone encounter Note * Telephone Encounter - Yoseph Fall MD - 10/22/2023 2:14 PM EDT OK for another Zpak as ordered Yoseph Fall MD [facility]06-28-[facility]24 Telephone encounter Note* Telephone Encounter - Naima Haines MA - 10/22/2023 1:09 PM EDT No fevers. She is coughing a little bit. The congestion has mostly cleared. She did get some improvement with the zpak she was given but doesn't feel that the infection is completely resolved. Please advise. Notify pt with providers decision. [facility]. Naima Haines MA [facility]06-28-2024 Telephone encounter Note* Telephone Encounter - Naima Haines MA - 10/22/2023 11:54 AM EDT Tried to reach pt, line picks up, can hear back ground noise but no one says anything. Will try again later. Naima Haines MA [facility]06-28-2024 Telephone encounter Note* Telephone Encounter - Yoseph Fall MD - 10/22/2023 11:47 AM EDT Did she get any better with the Zpak she was given in the ER? If so I would consider refill of that. If it did not help would use a different antibiotic. Yoseph Fall MD [facility]06-28-2024 Telephone encounter Note* Telephone Encounter - Naima Haines MA - 10/22/2023 10:26 AM EDT ER report attached. Scan on 10/18/2023 6:02 AM by Provider, MARY Howe: Consultation - Emergency Medicine [facility]06-28-2024 Telephone encounter Note* Telephone Encounter - Connor Velez - 10/22/2023 10:18 AM EDT Pt has requested that an antibiotic is called in for her. States she was just seen in the EmergencyRoom last week, however; is still having a discolored mucus with cough. Please advise. [facility]06-24-2024 Miscellaneous Notes* Telephone Encounter - Yoseph Fall [...] 18, 2023 9:49 AM documented in this encounterMiddletown Hospital06-24-2024 Telephone encounter Note * Telephone Encounter - Yoseph Fall MD - 10/18/2023 12:10 PM EDT OK to refill as ordered Yoseph Fall MD [facility]06-24-2024 Telephone encounter Note* Telephone Encounter - Martínez [...] Louie RN October 18, 2023 9:49 AM [facility]06-07-2024 Telephone encounter Note* Telephone Encounter - Naima Haines MA - 10/01/2023 1:48 PM EDT The following approved medication requests have been transmitted electronically. Requested Prescriptions Signed Prescriptions Disp Refills tiZANidine (ZANAFLEX) 4 mg tablet 90 tablet 5 Sig: Take 1 tablet by mouth every 8 hours as needed (muscle spasms). Authorizing Provider: YOSEPH FALL MA [facility]06-07-2024 Miscellaneous Notes* Telephone Encounter - Naima Haines [...] Marrero RN - 10/01/2023 11:53 AM EDT Dzvcsiow-Vt-Wzf calls to ask if provider would send in a different prescription than flexeril d/t having to pay for medication. Recommended contacting insurance to see what medication is covered and it was requested to just send something in as they can never get a hold of anyone at the insurance company. [facility] Marrero RN documented in this encounterMiddletown Hospital06-07-2024 Telephone encounter Note * Telephone Encounter - Yoseph Fall MD - 10/01/2023 1:29 PM EDT OK for zanaflex as ordered Yoseph Fall MD [facility]06-07-2024 Telephone encounter Note* Telephone Encounter - Sukhi Marrero RN - 10/01/2023 11:53 AM EDT Qhfdasfo-Pc-Gjp calls to ask if provider would send in a different prescription than flexeril d/t having to pay for medication. Recommended contacting insurance to see what medication is covered and it was requested to just send something in as they can never get a hold of anyone at the insurance company. Pharmacy [facility] Marrero RN [facility]05-29-2024 Telephone encounter Note* Telephone Encounter - Nelson Robert APRN.CNP - 09/22/2023 11:43 AM EDT The following approved medication requests have been transmitted electronically. Requested Prescriptions Pending Prescriptions Disp Refills ipratropium-albuterol (DUONEB) 0.5 mg-3 mg(2.5 mg base)/3 mL nebu 360 mL 2 Sig: inhale 1 ampule via nebulizer every 4 hours if needed for wheezing. Use over 5 to 15 minutes Nelson Robert APRN.CNP [facility]05-29-2024 Miscellaneous Notes* Telephone Encounter - Nelson Robert [...] Thank you. Louisa Nobles. documented in this encounterMiddletown Hospital05-29-2024 Telephone encounter Note * Telephone Encounter - [...] 11/23/2023 Please advise. Thank you. Louisa Nobles. [facility]05-23-2024 Telephone encounter Note* Telephone Encounter - Yoseph Fall MD - 09/16/2023 8:11 AM EDT OK to refill as ordered Yoseph Fall MD [facility]05-23-2024 Miscellaneous Notes* Telephone Encounter - Yoseph Fall [...] 11/23/2023 Please advise. Thank you. Louisa Messina [facility]. documented in this encounterMiddletown Hospital05-22-2024 Telephone encounter Note * Telephone Encounter - Iman Person APRN.CNP - 09/15/2023 7:09 PM EDT The following approved medication requests have been transmitted electronically. Requested Prescriptions Pending Prescriptions Disp Refills fluticasone (FLONASE) 50 mcg/actuation nasal spray 48 g 11 Sig: use 2 sprays in each nostril daily. Rinse mouth after use Iman Person APRN.CNP [facility]05-22-2024 Miscellaneous Notes* Telephone Encounter - Iman Person [...] you. Essie Medina RN. documented in this encounterMiddletown Hospital05-22-2024 Telephone encounter Note * Telephone Encounter - [...] 11/23/2023 Please advise. Thank you. Louisa Nobles. [facility]05-22-2024 Telephone encounter Note* Telephone Encounter - Essie [...] Please advise. Thank you. Essie Medina RN. [facility]04-29-2024 History of Present illness Narrative* Yoseph Fall [...] visit. Either the patient or their legal sales representative printing has been informed of the risks and [...] daily. Pain: uses Flexeril 10 mg daily, Osterburg 5-325 mg 1 pill BID prn, taking [...] lung, unspecified site (HCC) 04/26/2003 Lung cancer [place] (myocardial infarction) (HCC) 10-10 taken to [facility] heart stopped Obstructive chronic bronchitis with exacerbation [...] as directed. Dx: COPD J44.9 Nebulizer [facility] Mask and supplies as needed rOPINIRole (REQUIP) 0.25 mg tablet Take 1 tablet by mouth daily at bedtime. PULSE OXIMETER [facility] Use as directed to check oxygen saturation [...] Past Histories independently gathered by the clinical account support rep and the remaining scribed note accurately describes my personal service to the patient. 11-20 minutes of time spent on phone call Yoseph Fall MD The documentation for this note was completed by Naima Haines MA acting as scribe for Yoseph Fall MD. August 23, 2023 2:19 PM. Naima Haines MA documented in this encounterMiddletown Hospital04-02-2024 Miscellaneous Notes* Telephone Encounter - Yoseph Fall [...] you. Brynn Watson LPN. documented in this encounterMiddletown Hospital04-01-2024 History of Present illness Narrative* Yoseph Fall [...] visit. Either the patient or their legal sales representative printing has been informed of the risks and [...] for hospital follow up. Pt admitted into [facility] on 07/20/23 and discharged on 07/22/23. Overall [...] days. Nicorette 2 mg gum, states her Vabpqgdp-is-sbw was picking this up today. SUMMARY: -Pt discharged from [facility] on 07/22/23. Pt admitted on 07/20/23. -Admitted [...] anxiety, GERD and OA who presents to [facility] ER complaining of shortness of breath, [...] acute exacerbation of COPD withclinical evidence of uuooe-dr-qhuhszn hypoxic respiratory insufficiency likely due to recent [...] enlargement Borderline ECG Confirmed by Junito Madrid ([id number]), assignment desk editor CLARISSE RAMIREZ ([id number]) on 07/20/2023 1:47:04 PM Chest XR 07/20/23: [...] KB 30 S Records were obtained from [facility] Everywhere for continuity of care. [...] call Yoseph Fall MD documented in this encounterMiddletown Hospital04-01-2024 History of Present illness Narrative* Sanjana Baca MA - 07/26/2023 10:20 AM EDT TRANSITION CARE MANAGEMENT (TCM) INITIAL CONTACT [employer] Outreach Provider Action/FYI: Pt reports that she's [...] of Discharge 07/22/2023 SUMMARY: -Pt discharged from [facility] on 07/22/23. Pt admitted on 07/20/23. -Admitted [...] anxiety, GERD and OA who presents to [facility] ER complaining of shortness of breath, [...] acute exacerbation of COPD withclinical evidence of mdqhn-jg-crzixuc hypoxic respiratory insufficiency likely due to recent [...] enlargement Borderline ECG Confirmed by Junito Madrid ([id number]), assignment desk editor CLARISSE RAMIREZ ([id number]) on 07/20/2023 1:47:04 PM Chest XR 07/20/23: [...] KB 30 S Records were obtained from [facility] Everywhere for continuity of care. [...] home? Yes Medical records from recent hospitalization: [facility] Everywhere/[facility] records Sanjana Baca MA documented in this encounterMiddletown Hospital03-28-2024 Discharge summary Author Jan Bolanos [facility] July 22, 2023 4:12pm Note Date/Time July 22, 2023 4:0 4pm [facility] Medical Records Department [address] [place] [address] Instructions for Home/Discharge Instructions 07/22/23 1603 MR#: [id number] Acct: [id number] Name: DENIA GONZALEZ Rep #:[id number] : 1955 68 From: Jan brennan MD [...] DO; Dr. Yoseph Fall MD ~ Signed [facility] Work Phone: 1(208) 270-801003-28-2024 Discharge summary Author Jan Barbamercy [facility] July 22, 2023 4:18pm Note Date/Time July 22, 2023 4:1 7pm [facility] Medical Records Department [address] [place] [id number] Discharge Summary 07/22/231611 MR#: [id number] Acct: [id number] Name: DENIA GONZALEZ Rep #:[id number] : 1955 68 From: Jan brennan MD PCP: Dr. Yoseph Fall MD Status:AD IN Location: [place] [address] Providers Date of Admission: 07/20/23 Primary Care Physician: Dr. Yoseph Fall MD Reason For Visit: ACUTE EXACERBATION OF COPD WITH AFOEG-EO-ANAQIZN Diagnosis Discharge Diagnosis (1) COPD with acute [...] anxiety, GERD and OA who presents to [facility] ER complaining of shortness of breath, [...] exacerbation of COPD with clinical evidence of kkxvt-qa-agckzrk hypoxic respiratory insufficiency likely due to recent [...] Self Care Charges/Coding Visit Charges Inpatient E&M: 85037 Disch Hosp >30min 07/22/23 1618 <Electronically signed by Jan Bolanos MD> Cosigner Signature (if applicable): CC: Dr. Yoseph Fall MD; Dr. Jan Bolanos MD~ Signed [facility] Work Phone: 1(973) 494-704503-28-2024 Progress note Author Jan Bolanos [facility] July 22, 2023 11:02am Note Date/Time July 22, 2023 11: 02am [facility] Medical Records Department [address] [place] [address] Progress Note - Hospitalist 07/22/23 1101 MR#: [id number] Acct: [id number] Name: DENIA GONZALEZ Rep #:[id number] : 1955 68 From: Jan brennan MD PCP: Dr. Yoseph Fall MD Status:AD M IN [facility] Subjective Subjective Doing well, feels like she [...] DVT: Lovenox Charges/Coding Visit Charges Inpatient E&M: 69491 Subs Hosp L2 07/22/23 1102 <Electronically signed by Jan Bolanos MD> Cosigner Signature (if applicable): CC: ~ Signed [facility] Work Phone: 1(722) 171-239203-27-2024 Progress note Author Jan Bolanso [facility] July 21, 2023 10:28am Note Date/Time July 21, 2023 10: 25am [facility] Medical Records Department [address] [place] [address] Progress Note - Hospitalist 07/21/23 1013 MR#: [id number] Acct: [id number] Name: DENIA GONZALEZ Rep #:[id number] : 1955 68 From: Jan brennan MD PCP: Dr. Yoseph Fall MD Status:AD M IN Location: [facility] DF945-3 Subjective Subjective She feels about the same [...] 88.1 H, Lymph % (Auto) 8.8 L, Trigg %(Auto) 2.7, Eos % (Auto) 0.0, Baso [...] DVT: Lovenox Charges/Coding Visit Charges Inpatient E&M: 29905 Subs Hosp L2 07/21/23 1028 <Electronically signed by Jan Bolanos MD> Cosigner Signature (if applicable): CC: ~ Signed [facility] Work Phone: 1(935) 399-554603-26-2024 Discharge summary Author Dallas Mena [facility] July 20, 2023 6:49am Note Date/Time July 20, 2023 3:0 9am [facility] Medical Records Department [address] [place] [address] Emergency Department Summary 07/20/23 MR#: [id number] Acct: [id number] Name: DENIA GONZALEZ Rep #:[id number] : 1955 68 From: Dallas Mena MD PCP: Dr. Yoseph Fall MD Status:AD M IN Location: [place] [address] HPI History of Present Illness Chief Complaint: [...] % (Auto) 67.5 Lymph % (Auto) 23.7 Trigg % (Auto) 7.6 Eos % (Auto) 0.6 [...] rate of 128. No acute signs of MA or ischemia. Discharge Plan Triage Chief Complaint: [...] and wheezing. Disposition Disposition: Acute Care Hospital [facility] What to do if you have Problems For any increased pain, shortness of breath, bleeding, nausea or vomiting, chestpain, or any unexpected problems, contact your Primary Care Provider. Call [facility] ([phone]) or report to the closest Emergency Room. Call 911 if necessary. 07/20/23 0649 <Electronically signed by Dallas Mena MD> Cosigner Signature (if applicable): CC: Dr. Yoseph Fall MD ~ Signed [facility] Work Phone: 1(210) 327-917603-26-2024 Miscellaneous Notes* Telephone Encounter - Sanjana Baca MA - 07/20/2023 8:40 AM EDT Pt currently admitted into [facility] due to symptoms. Sanjana Baca MA * [...] advise. Jennifer Hennessy LPN documented in this encounterMiddletown Hospital03-26-2024 History and physical note Author José Smith [facility] July 20, 2023 4:55am Note Date/Time July 20, 2023 4:2 4am [facility] Medical Records Department [address] [place] [address] [place] [address] H&P Exam - Hospitalist 07/20/23 0406 MR#: [id number] Acct: [id number] Name: DENIA GONZALEZ Rep #:[id number] : 1955 68 From: José Abebe DO PCP: Dr. Yoseph Fall MD Status:AD M IN Location: [facility] DT265-1 [facility] Date of Admission: 07/20/23 Date of Service: [...] anxiety, GERD and OA who presents to [facility] ER complaining of shortness of breath, [...] exacerbation of COPD with clinical evidence of jdlfz-rm-wimkpvp hypoxic respiratory insufficiency likely due to recent viral URI in the setting of ongoing tobacco abuse and she was then admitted to the general medical floor forongoin care for stay that is expected to be greater than 48 hours. [facility] albuterol sulfate 90 mcg/actuation [...] % (Auto) 67.5, Lymph % (Auto) 23.7, Trigg% (Auto) 7.6, Eos % (Auto) 0.6, Baso [...] needed nebulizers. Give Tylenol as needed for qpxm-cb-jzeqbdli(level 1- 5/10) pain or fever. Continue Percocet prn for severe (level 6-10/10) pain. Tobacco cessation will be strongly encouraged with nicotine patch offeredto control cravings. 2. Viral URI likely triggering #1 - Check viral respiratory panel and placed oncontact and droplet precautions until confirmed negative. 3. Mhxyt-sr-psqyiyp hypoxic respiratory insufficiency arising from #1 & [...] 55 minutes. Charges/Coding Visit Charges Inpatient E&M: 37146 Init Hosp L2 07/20/23 4228 <Electronically signed by José Cunningham DO> Cosigner Signature (if applicable): CC: Dr. José Cunningham DO; Dr. Yoseph Fall MD~ Signed [facility] Work Phone: 1(320) 124-137303-04-2024 Miscellaneous Notes* Telephone Encounter - Yoseph Fall MD - 06/28/2023 3:59 PM EST OK to refill as ordered Yoseph Fall MD documented in this encounterMiddletown Hospital02-22-2024 Miscellaneous Notes* Telephone Encounter - Naima Haines Ma - 06/17/2023 11:12 AM EST Faxed. Namia Haines Ma * Telephone Encounter - Naima Haines Ma - 06/17/2023 9:58 AM EST Type of letter/form/fax request - Medical Necessity-incontinence supplies Form received from fax on 1 floor and placed on MD desk (Dr. Fall) for completion. Completed form needs to be faxed to [place] [facility] at [phone]. Route to [place] when form completed for processing documented in this encounterMiddletown Hospital02-21-2024 Miscellaneous Notes* Telephone Encounter - Meenu Gurrola [...] PA cmpleted for tiotropium alina GONZALEZ ([place]: [id number]) - [id number] Spiriva HandiHaler 18MCG capsules Status: PA Request Created: June 11, 2023 [id number] Sent: June 14, 2023 documented in this encounterMiddletown Hospital02-20-2024 Miscellaneous Notes* Telephone Encounter - Sanjana [...] call pt with reply. documented in this encounterMiddletown Hospital02-16-2024 Miscellaneous Notes* Telephone Encounter - Yoseph [...] you. Brynn Watson LPN. documented in this encounterMiddletown Hospital12-05-2023 Miscellaneous Notes* Telephone Encounter - Padmini Abbott RN - 03/30/2023 4:17 PM EST Pt's significant other, Mike Marysol calling. Requesting PCP office to fax orders for pt's nebulizer ,compressor and accessories to [facility] at FAX #: [phone], along with recent OV note. States pt receives other equipment from them and they would like to use their services. States they have not heard from [facility] when orders were originally faxed to them. Faxed as requested. Padmini Abbott RN documented in this encounterMiddletown Hospital11-22-2023 Miscellaneous Notes* Telephone Encounter - Roxanna [...] you. Roxanna Tineo LPN. documented in this encounterMiddletown Hospital10-27-2023 Instructions* Patient Instructions* Sanjana Baca Ma - 02/19/2023 2:31 PM EDT Check with Torch Burner on RSV vaccine. documented in this encounterMiddletown Hospital10-27-2023 History of Present illness Narrative* Yoseph [...] is currently being weaned down on her [place] 5-325 mg, concerned about going any lower as she doesn't think her pain will be controlled. She is taking [place] 5-325 mg 1 pill bid prn, getting #33/month, and Flexeril 10 mg BID prn. Osterburg was decreased last visit from #35/month to [...] Agreeable to Flu shot today. Reports her Torch Burner, may be able to give her the [...] and lung, unspecified site 04/26/2003 Lung cancer MA (myocardial infarction) (HCC) 10-10 taken to [facility] heart stopped Obstructive chronic bronchitis with exacerbation [...] instructed every 4 hours asneeded. P[facility] O[facility]IMET[facility] Use as directed to check oxygen saturation [...] Accessories mis Mask and supplies as needed Knljnicodgrsg-PI-mharYHLmsfu (MUCINEX FAST-MAX CONGEST-COUGH) 2.5-5-100 mg/5 mL liqd Take 10 mL by mouth three times daily as needed. OXYGEN, HOME THERAPY, 2.5 L/min by Nasal Cannula route continuous. Use as directred Disposable Gloves (DISPOSABLE LATEX-FREE GLOVES) [facility] 1 Box once every month. ICD 10: [...] Stage 3 severe COPD by GOLD classification ([facility]) - ICD9: 496, ICD10: J44.9 - Continue current medication regimen. - Send Nebulizer supplies to [facility] 8. Gastroesophageal reflux disease, unspecified whether esophagitis present - ICD9: 530.81, ICD10: K21.9 - Stable - Continue current medication regimen. 9. Chronic obstructive pulmonary disease, unspecified COPD type ([facility]) - ICD9: 496, ICD10: J44.9 - Continue [...] Past Histories independently gathered by the clinical account support rep and the remaining scribed note [...] PM. Sanjana Baca Ma documented in this encounterMiddletown Hospital09-22-2023 Miscellaneous Notes* Telephone Encounter - Nelson [...] you. Sukhi Marrero, RN documented in this encounterMiddletown Hospital09-05-2023 Miscellaneous Notes* Telephone Encounter - Nelson [...] 12/29/2022 12:32 PM EDT Pharmacy verified in [facility] Patient has been identified by name [...] (173 lb) Not applicable Please advise. Mercedez Foster Pss documented in this encounterMiddletown Hospital08-17-2023 Miscellaneous Notes* Telephone Encounter - Meenu Hanks LPN - 12/10/2022 3:29 PM EDT Pt notfied Meenu Hanks LPN * Telephone Encounter - Yoseph Fall MD - 12/10/2022 2:38 PM EDT Order filed Yoseph Fall MD * Telephone Encounter - Brynn Watson LPN - 12/10/2022 12:09 PM EDT Patient daughter calling mother had sent to her to pick up and delivery driver stool sample, no order in computer. Computer shows at last office visit Dr was asking patient if she would do IFOBT and no order was put in the computer. Pending order needs diagnosis. Call patient when order in place so can pick up and delivery driver kit. Please advise documented in this encounterMiddletown Hospital07-14-2023 Miscellaneous Notes* Telephone Encounter - Nelson [...] has one pill left. documented in this encounterMiddletown Hospital05-09-2023 Miscellaneous Notes* Telephone Encounter - Michelle Alvarez Ma - 09/01/2022 10:23 AM EDT Images from the original note were not included. Ran PA through again with covermymed and used different dx code and was approved but used differentdx Michelle Alvarez Ma * Telephone Encounter - Mihcelle Alvarez Ma - 09/01/2022 9:50 AM EDT Called [facility] to check status since no faxes have been received. PA states no PA needed will call pharmacy and have them run with specific NDC code. NDC: [id number] NDC: [id number] Called [facility] and they ran medication which [...] PAover the phone with rep PA # [id number] Michelle Alvarez Ma * Telephone Encounter - Michelle Alvarez Ma - 08/21/2022 3:46 PM EDT PA have never been completed for either med which needs done first before appeal letter. Completed Electronic PA for [facility] Tried calling patientbut no answer and vm full. PA completed through covermymeds for flexeril [place]: [id number] Michelle Alvarez Ma * Telephone Encounter - [...] know the fax number. Patient's insurance is [employer]. Asked patient what the phone number was for [employer] and she gave me a phone number that was not for [employer]. I asked if this was aprior authorization that was needed and she said she needed a letter. Please contact patient with any other questions. No chief complaint on file. Patient has been identified by name and birthdate. Duration of symptoms: N/A Person calling: self Call patient at: at home [phone] (home) [phone] (cell) Was an appointment scheduled: No Closing statement: Results or non-symptom based questions: Thank you for [facility], your call will be returned within the next business day. Orly Stacy documented in this encounterMiddletown Hospital03-10-2023 Miscellaneous Notes* Telephone Encounter - Naima Haines Ma - 07/03/2022 10:32 AM EST Faxed. Naima Haines Ma * Telephone Encounter - Naima Haines Ma - 07/02/2022 9:09 AM EST Type of letter/form/fax request - Medical Necessity-Incontinence supplies Form received from fax on [address] Fall's desk for completion. Completed form needs to be faxed to [facility] at [phone]. Route to [place] when form completed for processing documented in this encounterMiddletown Hospital03-06-2023 Miscellaneous Notes* Telephone Encounter - Nelson [...] notify patient. Orly Stacy documented in this encounterMiddletown Hospital02-13-2023 Miscellaneous Notes* Telephone Encounter - Nelson [...] you. Essie Medina RN documented in this encounterMiddletown Hospital01-20-2023 Miscellaneous Notes* Telephone Encounter - Yoseph [...] Date of Last Labs: documented in this encounterMiddletown Hospital01-10-2023 Miscellaneous Notes* Telephone Encounter - Nelson Robert APRN.RESEARCH ASSISTANT PROFESSOR - 05/05/2022 1:29 PM EST The following [...] notify patient. Fawn Carrillo documented in this encounterMiddletown Hospital01-06-2023 History of Present illness Narrative* Yoseph [...] is currently being weaned down on her O[place] 5-325 mg. Does not think shecan go any lower on the O[place]burg. Pt on current regimen of O[place]burg 5-325 mg taking 1 tab po bid [...] and lung, unspecified site 04/26/2003 Lung cancer MA (myocardial infarction) (HCC) 10-10 taken to [facility] heart stopped Obstructive chronic bronchitis with exacerbation [...] instructed every 4 hours asneeded. [facility] Use as directed to check oxygen saturation [...] as directed. Dx: COPD J44.9 Nebulizer Accessories [facility] Mask and supplies as needed Jfeonpynmscpi-PM-vgexXHQnxxg (MUCINEX FAST-MAX CONGEST-COUGH) 2.5-5-100 mg/5 mL liqd Take 10 mL by mouth three times daily as needed. OXYGEN, HOME THERAPY, 2.5 L/min by Nasal Cannula route continuous. Use as directred Disposable Gloves (DISPOSABLE LATEX-FREE GLOVES) [facility] 1 Box once every month. ICD 10: [...] Pulse 105 Wt 78.5 kg (173 lb) [facility] 03/30/2005 BMI 30.65 kg/m Health Maintenance List [...] Past Histories independently gathered by the clinical account support rep and the remaining scribed note accurately describes my personal service to the patient. 5-10 minutes of time spent on phone call Yoseph Fall MD The documentation for this note was completed by Naima Haines Ma acting as scribe for Yoseph Fall MD. May 01, 2022 2:41 PM. Naima Haines Ma documented in this encounterMiddletown Hospital12-27-2022 Miscellaneous Notes* Telephone Encounter - Yoseph [...] up with PCP please. documented in this encounterMiddletown Hospital11-04-2022 Miscellaneous Notes* Telephone Encounter - Falguni [...] file order for oxygen and fax to [facility] in [place]. This nurse does not see order in computer and it appears PCP has ordered oxygen in the past. Please call patient at [phone] when this has been completed or if there are any issues. documented in this encounterMiddletown Hospital10-28-2022 Procedure note* MUNA Cutler - 02/20/2022 [...] TIME: 1:25 PM Comment: documented in this encounterMiddletown Hospital10-28-2022 History of Present illness Narrative* MUNA Ctuler - 02/20/2022 1:22 PM EDT PULM FUNCTION SMARTBLOCK: Provider: Michelle Guzmán MD Assisting Tech: MUNA Cutler Oximetry - Ambulation: 1 documented in this encounterMiddletown Hospital09-27-2022 Miscellaneous Notes* Telephone Encounter - Nelson Robert APRN.CNP - 01/20/2022 1:36 PM EDT Approved. [facility] website checked and validated. All prescriptions [...] patient. Fina Mora Pss documented in this encounterMiddletown Hospital09-15-2022 Miscellaneous Notes* Telephone Encounter - Falguni Patton LPN - 01/08/2022 8:39 AM EDT Noted, thank you! Falguni Patton LPN * Telephone Encounter - Mini Pineda RN - 01/08/2022 8:31 AM EDT Bettie with [facility] calling in. States pt. needs to re-qualify for home O2. Pt. has not seen a Country Printer Apprentice for a while (former pt. of Dr. Huertas). This nurse instructed Bettie to have pt.call to set up consult/ appt with Dr. Guzmán. Bettie will do so. Mini Pineda RN documented in this encounterMiddletown Hospital08-25-2022 Miscellaneous Notes* Telephone Encounter - Naima [...] you. Martínez Louie RN documented in this encounterMiddletown Hospital07-25-2022 Miscellaneous Notes* Telephone Encounter - Nelson [...] patient. Denia Paulabrian Carrillo documented in this encounterMiddletown Hospital06-24-2022 History of Present illness Narrative* Yoseph [...] is currently being weaned down on her O[place] 5-325 mg. Pt on current regimen of O[place] 5-325 mg taking 1 tab po bid [...] and lung, unspecified site 2003 Lung cancer MA (myocardial infarction) (HCC) 10-10 taken to [facility] heart stopped Obstructive chronic bronchitis with exacerbation [...] as needed for muscle spasm. [facility] Use as directed to check oxygen saturation [...] Accessories misc Mask and supplies as needed Kewsqctebgqsn-UF-gcoyWTBzduv (MUCINEX FAST-MAX CONGEST-COUGH) 2.5-5-100 mg/5 mL liqd Take 10 mL by mouth three times daily as needed. OXYGEN, HOME THERAPY, 2.5 L/min by Nasal Cannula route continuous. Use as directred Disposable Gloves (DISPOSABLE LATEX-FREE GLOVES) [facility] 1 Box once every month. ICD 10: [...] Past Histories independently gathered by the clinical account support rep and the remaining scribed note accurately describes my personal service to the patient. Yoseph Fall MD The documentation for this note was completed by Naima Haines Ma acting as scribe for Yoseph Fall MD. October 17, 2021 2:02 PM. Naima Haines Ma documented in this encounterMiddletown Hospital06-07-2022 Miscellaneous Notes* Telephone Encounter - Naima Haiens Ma - 09/30/2021 2:06 PM EDT The [...] you. Richard Mora LPN documented in this encounterMiddletown Hospital05-23-2022 Miscellaneous Notes* Telephone Encounter - Yoseph [...] patient. Jennifer Hennessy LPN documented in this encounterMiddletown Hospital05-04-2022 Miscellaneous Notes* Telephone Encounter - Nelson [...] provider send a new prescription to [facility]. Pharmacy won't fill current prescription. Date [...] you. Sukhi Marrero RN documented in this encounterMiddletown Hospital04-25-2022 Miscellaneous Notes* Telephone Encounter - Naima [...] you. Padmini Abbott RN documented in this encounterMiddletown Hospital03-07-2017 History of Past illness Narrative* Problem [...] - Not done as it will not policy change clerks supervisor (same duration of ABx treatment) Cholelithiasis with [...] 06/24/2016 - Decreased Flatulence - [facility] at [place] [facility] was normal (report available only) Plan: [...] of this encounter (statuses as of 08/01/2021) [facility]03-07-2017 History of Past illness Narrative* Problem [...] - Not done as it will not policy change clerks supervisor (same duration of ABx treatment) Cholelithiasis with [...] 06/24/2016 - Decreased Flatulence - [facility] at [place] [facility] was normal (report available only) Plan: [...] of this encounter (statuses as of 08/18/2021) [facility]03-[facility] of Past illness Narrative* Problem [...] - Not done as it will not policy change clerks supervisor (same duration of ABx treatment) Cholelithiasis with [...] 06/24/2016 - Decreased Flatulence - K[facility] at [place] [facility] was normal (report available only) Plan: [...] of this encounter (statuses as of 08/27/2021) [facility] of Past illness Narrative* Problem [...] - Not done as it will not policy change clerks supervisor (same duration of ABx treatment) Cholelithiasis with [...] 06/24/2016 - Decreased Flatulence - KUB at [place] [facility] was normal (report available only) Plan: [...] of this encounter (statuses as of 09/15/2021) [facility] of [facility] illness Narrative* Problem [...] - Not done as it will not policy change clerks supervisor (same duration of ABx treatment) Cholelithiasis with [...] 06/24/2016 - Decreased Flatulence - KUB at [place] [facility] was normal (report available only) Plan: [...] of this encounter (statuses as of 09/30/2021) [facility] of [facility] illness Narrative* Problem [...] - Not done as it will not policy change clerks supervisor (same duration of ABx treatment) Cholelithiasis with [...] 06/24/2016 - Decreased Flatulence - KUB at [place] [facility] was normal (report available only) Plan: [...] of this encounter (statuses as of 10/17/2021) [facility] Narrative* Problem [...] - Not done as it will not policy change clerks supervisor (same duration of ABx treatment) Cholelithiasis with [...] 06/24/2016 - Decreased Flatulence - KUB at [place] [facility] was normal (report available only) Plan: [...] of this encounter (statuses as of 11/17/2021) [facility] Narrative* Problem [...] - Not done as it will not policy change clerks supervisor (same duration of ABx treatment) Cholelithiasis with [...] 06/24/2016 - Decreased Flatulence - KUB at [place] [facility] was normal (report available only) Plan: [...] of this encounter (statuses as of 12/18/2021) [facility] Narrative* Problem [...] - Not done as it will not policy change clerks supervisor (same duration of ABx treatment) Cholelithiasis with [...] 06/24/2016 - Decreased Flatulence - KUB at [place] [facility] was normal (report available only) Plan: [...] of this encounter (statuses as of 01/08/2022) [facility] Narrative* Problem [...] - Not done as it will not policy change clerks supervisor (same duration of ABx treatment) Cholelithiasis with [...] 06/24/2016 - Decreased Flatulence - KUB at [place] [facility] was normal (report available only) Plan: [...] of this encounter (statuses as of 01/13/2022) [facility] Narrative* Problem [...] - Not done as it will not policy change clerks supervisor (same duration of ABx treatment) Cholelithiasis with [...] 06/24/2016 - Decreased Flatulence - KUB at [place] [facility] was normal (report available only) Plan: [...] of this encounter (statuses as of 01/20/2022) [facility] Narrative* Problem [...] - Not done as it will not policy change clerks supervisor (same duration of ABx treatment) Cholelithiasis with [...] 06/24/2016 - Decreased Flatulence - KUB at [place] [facility] was normal (report available only) Plan: [...] of this encounter (statuses as of 02/20/2022) [facility] Narrative* Problem [...] - Not done as it will not policy change clerks supervisor (same duration of ABx treatment) Cholelithiasis with [...] 06/24/2016 - Decreased Flatulence - KUB at [place] [facility] was normal (report available only) Plan: [...] of this encounter (statuses as of 02/27/2022) [facility] Narrative* Problem [...] - Not done as it will not policy change clerks supervisor (same duration of ABx treatment) Cholelithiasis with [...] 06/24/2016 - Decreased Flatulence - KUB at [place] [facility] was normal (report available only) Plan: [...] of this encounter (statuses as of 04/26/2022) [facility] Narrative* Problem [...] - Not done as it will not policy change clerks supervisor (same duration of ABx treatment) Cholelithiasis with [...] 06/24/2016 - Decreased Flatulence - KUB at [place] [facility] was normal (report available only) Plan: [...] of this encounter (statuses as of 05/02/2022) [facility] Narrative* Problem [...] - Not done as it will not policy change clerks supervisor (same duration of ABx treatment) Cholelithiasis with [...] 06/24/2016 - Decreased Flatulence - KUB at [place] [facility] was normal (report available only) Plan: [...] of this encounter (statuses as of 05/05/2022) [facility] Narrative* Problem [...] - Not done as it will not policy change clerks supervisor (same duration of ABx treatment) Cholelithiasis with [...] 06/24/2016 - Decreased Flatulence - KUB at [place] [facility] was normal (report available only) Plan: [...] of this encounter (statuses as of 05/15/2022) [facility] Narrative* Problem [...] - Not done as it will not policy change clerks supervisor (same duration of ABx treatment) Cholelithiasis with [...] 06/24/2016 - Decreased Flatulence - KUB at [place] [facility] was normal (report available only) Plan: [...] of this encounter (statuses as of 06/08/2022) [facility] Narrative* Problem [...] - Not done as it will not policy change clerks supervisor (same duration of ABx treatment) Cholelithiasis with [...] 06/24/2016 - Decreased Flatulence - KUB at [place] [facility] was normal (report available only) Plan: [...] of this encounter (statuses as of 06/29/2022) [facility] Narrative* Problem [...] - Not done as it will not policy change clerks supervisor (same duration of ABx treatment) Cholelithiasis with [...] 06/24/2016 - Decreased Flatulence - KUB at [place] [facility] was normal (report available only) Plan: [...] of this encounter (statuses as of 07/03/2022) [facility] Narrative* Problem [...] - Not done as it will not policy change clerks supervisor (same duration of ABx treatment) Cholelithiasis with [...] 06/24/2016 - Decreased Flatulence - KUB at [place] [facility] was normal (report available only) Plan: [...] of this encounter (statuses as of 09/01/2022) [facility] N[facility]ative* Problem [...] - Not done as it will not policy change clerks supervisor (same duration of ABx treatment) Cholelithiasis with [...] 06/24/2016 - Decreased Flatulence - KUB at [place] [facility] was normal (report available only) Plan: [...] of this encounter (statuses as of 11/06/2022) [facility] Narrative* Problem [...] - Not done as it will not policy change clerks supervisor (same duration of ABx treatment) Cholelithiasis with [...] 06/24/2016 - Decreased Flatulence - KUB at [place] [facility] was normal (report available only) Plan: [...] of this encounter (statuses as of 11/06/2022) [facility] Narrative* Problem [...] - Not done as it will not policy change clerks supervisor (same duration of ABx treatment) Cholelithiasis with [...] 06/24/2016 - Decreased Flatulence - KUB at [place] [facility] was normal (report available only) Plan: [...] of this encounter (statuses as of 12/29/2022) [facility] Narrative* Problem [...] - Not done as it will not policy change clerks supervisor (same duration of ABx treatment) Cholelithiasis with [...] 06/24/2016 - Decreased Flatulence - KUB at [place] [facility] was normal (report available only) Plan: [...] of this encounter (statuses as of 01/15/2023) [facility]* Problem [...] - Not done as it will not policy change clerks supervisor (same duration of ABx treatment) Cholelithiasis with [...] 06/24/2016 - Decreased Flatulence - KUB at [place] [facility] was normal (report available only) Plan: [...] of this encounter (statuses as of 01/30/2023) [facility] Narrative* Problem [...] - Not done as it will not policy change clerks supervisor (same duration of ABx treatment) Cholelithiasis with [...] 06/24/2016 - Decreased Flatulence - KUB at [place] [facility] was normal (report available only) Plan: [...] of this encounter (statuses as of 02/19/2023) [facility]ative* Problem [...] - Not done as it will not policy change clerks supervisor (same duration of ABx treatment) Cholelithiasis with [...] 06/24/2016 - Decreased Flatulence - KUB at [place] [facility] was normal (report available only) Plan: [...] of this encounter (statuses as of 03/17/2023) [facility] Narrative* Problem [...] - Not done as it will not policy change clerks supervisor (same duration of ABx treatment) Cholelithiasis with [...] 06/24/2016 - Decreased Flatulence - KUB at [place] [facility] was normal (report available only) Plan: [...] of this encounter (statuses as of 03/31/2023) [facility] Narrative* Problem [...] - Not done as it will not policy change clerks supervisor (same duration of ABx treatment) Cholelithiasis with [...] 06/24/2016 - Decreased Flatulence - KUB at [place] [facility] was normal (report available only) Plan: [...] of this encounter (statuses as of 06/11/2023) [facility] Narrative* Problem [...] - Not done as it will not policy change clerks supervisor (same duration of ABx treatment) Cholelithiasis with [...] 06/24/2016 - Decreased Flatulence - KUB at [place] [facility] was normal (report available only) Plan: [...] of this encounter (statuses as of 06/15/2023) [facility] Narrative* Problem [...] - Not done as it will not policy change clerks supervisor (same duration of ABx treatment) Cholelithiasis with [...] 06/24/2016 - Decreased Flatulence - KUB at [place] [facility] was normal (report available only) Plan: [...] of this encounter (statuses as of 06/16/2023) [facility] History of Past illness Narrative* Problem [...] - Not done as it will not policy change clerks supervisor (same duration of ABx treatment) Cholelithiasis with [...] 06/24/2016 - Decreased Flatulence - KUB at [place] [facility] was normal (report available only) Plan: [...] of this encounter (statuses as of 06/17/2023) [facility] History of Past illness Narrative* Problem [...] - Not done as it will not policy change clerks supervisor (same duration of ABx treatment) Cholelithiasis with [...] 06/24/2016 - Decreased Flatulence - KUB at [place] [facility] was normal (report available only) Plan: [...] of this encounter (statuses as of 06/21/2023) [facility] History of Past illness Narrative* Problem [...] - Not done as it will not policy change clerks supervisor (same duration of ABx treatment) Cholelithiasis with [...] 06/24/2016 - Decreased Flatulence - KUB at [place] [facility] was normal (report available only) Plan: [...] of this encounter (statuses as of 06/28/2023) [facility] History of Past illness Narrative* Problem [...] - Not done as it will not policy change clerks supervisor (same duration of ABx treatment) Cholelithiasis with [...] 06/24/2016 - Decreased Flatulence - KUB at [place] [facility] was normal (report available only) Plan: [...] of this encounter (statuses as of 07/20/2023) [facility] History of Past illness Narrative* Problem [...] - Not done as it will not policy change clerks supervisor (same duration of ABx treatment) Cholelithiasis with [...] 06/24/2016 - Decreased Flatulence - KUB at [place] [facility] was normal (report available only) Plan: [...] of this encounter (statuses as of 07/26/2023) [facility] History of Past illness Narrative* Problem [...] - Not done as it will not policy change clerks supervisor (same duration of ABx treatment) Cholelithiasis with [...] 06/24/2016 - Decreased Flatulence - KUB at [place] [facility] was normal (report available only) Plan: [...] of this encounter (statuses as of 07/27/2023) [facility] History of Past illness Narrative* Problem [...] - Not done as it will not policy change clerks supervisor (same duration of ABx treatment) Cholelithiasis with [...] 06/24/2016 - Decreased Flatulence - KUB at [place] [facility] was normal (report available only) Plan: [...] of this encounter (statuses as of 08/06/2023) [facility] Riley Jeff [facility] Note Date/Time September 29, 2024 4:33a [facility] Medical Records Department [address] [place] [address] Emergency Department Summary 09/29/24 MR#: [id number] Acct: [id number] Name: DENIA GONZALEZ Rep #:[id number] : 1955 69 From: Riley Jeff DO [...] Secondary to that she presents for evaluation [facility] Medical History RLS (restless legs [...] 78.5 H Lymph % (Auto) 13.2 L Trigg % (Auto) 6.9 Eos % (Auto) 0.7 [...] of an acute cardiopulmonary abnormality. Reading Location: [facility] Chest x-ray as interpreted by the emergency medicine physician reveals no acute infiltrate pneumothorax or pleural effusion Management Discussion w/another healthcare provider: Hospitalist Discharge Plan Dx/Rx/DC Orders Clinical Impression: COPD with acute exacerbation, Benign essential hypertension, Anxiety and depression Disposition Disposition: [facility] What to do if you have Problems For any increased pain, shortness of breath, bleeding, nausea or vomiting, chestpain, or any unexpected problems, contact your Primary Care Provider. Call [facility] ([phone]) or report to the closest Emergency Room. Call 911 if necessary. 09/29/24 0433 <Electronically signed by Riley Jeff DO> Cosigner Signature (if applicable): CC: Dr. Yoseph Fall MD ~ Signed [facility] Work Phone: Discharge summary Author Alessandro Palma [facility] Note Date/Time October 09, 2024 3:58 pm [facility] Medical Records Department [address] [place] [address] Instructions for Home/Discharge Instructions 10/09/24 1542 MR#: [id number] Acct: [id number] Name: DENIA GONZALEZ Rep #:[id number] : 1955 69 From: Alessandro Liu PCP: [...] MD; Dr. Jan Bolanos MD ~ Signed [facility] Work Phone: Discharge summary Author Alessandro Palma [facility] Note Date/Time October 09, 2024 4:06 pm [facility] Medical Records Department [address] [place] [address] Discharge Summary 10/09/248 MR#: [id number] Acct: [id number] Name: MONICODENIA Gisell Rep #:[id number] : 1955 69 From: Alessandro Liu PCP: Dr. Yoseph Fall MD Status:AD M IN Location: [facility] [id number] Providers Date of Admission: 09/29/24 Date [...] mg twice daily. * Discussed with the manager advertising Dr. Hopkins today. Discharge on verapamil and [...] 86.9 H, Lymph % (Auto) 6.9 L, Trigg %(Auto) 5.3, Eos % (Auto) 0.0, Baso [...] Health Service Charges/Coding Visit Charges Inpatient E&M: 95125 Disch Hosp >30min 10/09/24 1606 <Electronically signed by Alessandro Palma MD> Cosigner Signature (if applicable): CC: Dr. Yoseph Fall MD; Dr. Alessandro Palma MD~ Signed [facility] Work Phone: Evaluation note* Diagnosis Essential hypertension, benign- Primary Elevated glucose Other abnormal glucose [facility] Diagnosis Chronic low back pain with sciatica, sciatica laterality unspecified, unspecified back pain laterality [facility] Diagnosis Chronic obstructive pulmonary disease, unspecified COPD type (HCC) [facility] Diagnosis Chronic obstructive pulmonary disease, unspecified COPD type (HCC)- Primary Chronic low back pain with sciatica, sciatica laterality unspecified, unspecified back pain laterality Essential hypertension, benign Uncomplicated asthma, unspecified asthma severity, unspecified whether persistent Generalized anxiety disorder [facility] Diagnosis Chronic low back pain with sciatica, sciatica laterality unspecified, unspecified back pain laterality [facility] Diagnosis Chronic obstructive pulmonary disease, unspecified COPD type (HCC)- Primary [facility] Diagnosis Chronic low back pain with sciatica, sciatica laterality unspecified, unspecified back pain laterality [facility] Diagnosis Chronic obstructive pulmonary disease, unspecified COPD type (HCC) [facility]* Diagnosis Stage 3 severe COPD by GOLD classification (HCC)- Primary Chronic respiratory failure with hypoxia (HCC) Chronic respiratory failure [facility] Diagnosis Stage 3 severe COPD by GOLD classification (HCC)- Primary Chronic low back pain with sciatica, sciatica laterality unspecified, unspecified back pain laterality Chronic respiratory failure with hypoxia (HCC) Chronic respiratory failure Essential hypertension, benign Generalized anxiety disorder Tobacco use disorder [facility]* Diagnosis Chronic obstructive pulmonary disease, unspecified COPD type (HCC) Uncomplicated asthma, unspecified asthma severity, unspecified whether persistent documented in this encounter [facility] note* Diagnosis Esophageal reflux documented in this encounter [facility] note* Diagnosis Generalized osteoarthrosis, involving multiple sites documented in this encounter [facility] note* Diagnosis Generalized osteoarthrosis, involving multiple sites documented in this encounter [facility] note* Diagnosis Screening for colon cancer- Primary Special screening for malignant neoplasms, colon documented in this encounter [facility] note* Diagnosis Chronic low back pain with sciatica, sciatica laterality unspecified, unspecified back pain laterality- Primary Generalized osteoarthrosis, involving multiple sites Generalized anxiety disorder Depression, unspecified depression type Essential hypertension, benign Elevated glucose Other abnormal glucose Stage 3 severe COPD by GOLD classification ([facility]) Gastroesophageal reflux disease, unspecified whether esophagitis present Chronic obstructive pulmonary disease, unspecified COPD type (HCC) Uncomplicated asthma, unspecified asthma severity, unspecified whether persistent Tobacco use disorder Need for influenza vaccination Need for prophylactic vaccination and inoculation against influenza Encounter for medication monitoring Encounter for therapeutic drug monitoring documented in this encounter [facility] note* Diagnosis Thrush, oral Candidiasis of mouth documented in this encounter [facility] note* Diagnosis Encounter for screening mammogram for breast cancer documented in this encounter [facility] note* Diagnosis Onset Date Resolution Status COPD (chronic obstructive pulmonary disease) acute Hypoxia acute Respiratory insufficiency ac tyra Viral URI with cough acute COPD with acute exacerbation [facility] Work Phone: Evaluation note* Diagnosis Obstructive chronic bronchitis with exacerbation (HCC)- Primary Obstructive chronic bronchitis with exacerbation Stage 3 severe COPD by GOLD classification (HCC) Cigarette smoker Tobacco use disorder Chronic respiratory failure with hypoxia (HCC) Chronic respiratory failure documented in this encounter [facility] note* Diagnosis Stage 3 severe COPD by GOLD classification (HCC)- Primary Essential hypertension, benign Cigarette smoker Tobacco use disorder Generalized anxiety disorder Chronic low back pain with sciatica, sciatica laterality unspecified, unspecified back pain laterality documented in this encounter [facility] note* Diagnosis Chronic low back pain with sciatica, sciatica laterality unspecified, unspecified back pain laterality documented in this encounter [facility] note* Diagnosis Chronic low back pain with sciatica, sciatica laterality unspecified, unspecified back pain laterality Tobacco use disorder documented in this encounter [facility] note* Diagnosis Bronchitis Bronchitis, not specified as acute or chronic documented in this encounter [facility] note* Diagnosis Generalized osteoarthrosis, involving multiple sites documented in this encounter [facility] note* Diagnosis Chronic low back pain with sciatica, sciatica laterality unspecified, unspecified back pain laterality documented in this encounter [facility] note* Diagnosis Stage 3 severe COPD by GOLD classification ([facility])- Primary Generalized osteoarthrosis, involving multiple sites Chronic low back pain with sciatica, sciatica laterality unspecified, unspecified back pain laterality Essential hypertension, benign Tobacco use disorder Dysthymic disorder documented in this encounter [facility] note* Diagnosis Chronic low back pain with sciatica, sciatica laterality unspecified, unspecified back pain laterality documented in this encounter [facility] note* Diagnosis Chronic low back pain with sciatica, sciatica laterality unspecified, unspecified back pain laterality Chronic obstructive pulmonary disease, unspecified COPD type ([facility]) documented in this encounter [facility] note* Diagnosis Stage 3 severe COPD by GOLD classification ([facility]) documented in this encounter [facility] note* Diagnosis Chronic low back pain with sciatica, sciatica laterality unspecified, unspecified back pain laterality [facility]* Diagnosis Oral infection- Primary Other and unspecified diseases of the oral soft tissues documented in this encounter [facility] note* Diagnosis Chronic low back pain with sciatica, sciatica laterality unspecified, unspecified back pain laterality- Primary Essential hypertension, benign Generalized anxiety disorder Depression, unspecified depression type Gastroesophageal reflux disease without esophagitis Esophageal reflux documented in this encounter [facility] note* Diagnosis Chronic low back pain with sciatica, sciatica laterality unspecified, unspecified back pain laterality Thrush, oral Candidiasis of mouth documented in this encounter [facility] note* Diagnosis Generalized osteoarthrosis, involving multiple sites [facility]* Diagnosis Encounter for screening mammogram for breast cancer [facility]* Diagnosis Chronic low back pain with sciatica, sciatica laterality unspecified, unspecified back pain laterality [facility] encounter [facility]* Diagnosis Esophageal reflux documented in this encounter [facility] note* Diagnosis Chronic obstructive pulmonary [...] malignant neoplasms, colon documented in this encounter [facility] note* Diagnosis Chronic low back pain with sciatica, sciatica laterality unspecified, unspecified back pain laterality documented in this encounter [facility] note* Diagnosis Onset Date Resolution Status Admit Date Anxiety and depression acute Ju 2024 4:06am COPD with acute exacerbation chronic September 29, 2024 4:06am [facility] Work Phone: Evaluation note* Diagnosis Chronic low back pain with sciatica, sciatica laterality unspecified, unspecified back pain laterality documented in this encounter [facility] note* Diagnosis Stage 3 severe COPD by GOLD classification (HCC) Chronic low back pain with sciatica, sciatica laterality unspecified, unspecified back pain laterality documented in this encounter [facility] note* Diagnosis Stage 3 severe COPD by GOLD classification (HCC)- Primary Chronic low back pain with sciatica, sciatica laterality unspecified, unspecified back pain laterality Essential hypertension, benign Tobacco use disorder Generalized anxiety disorder Aortic valve stenosis, etiology of cardiac valve disease unspecified documented in this encounter [facility] note* Diagnosis Stage 3 severe COPD by GOLD classification (HCC)- Primary Generalized osteoarthrosis, involving multiple sites Generalized anxiety disorder Chronic low back pain with sciatica, sciatica laterality unspecified, unspecified back pain laterality documented in this encounter [facility] note* Diagnosis Stage 3 severe COPD by GOLD classification (HCC)- Primary Chronic low back pain with sciatica, sciatica laterality unspecified, unspecified back pain laterality documented in this encounter [facility] note* Diagnosis NO SHOW- Primary Stage 3 severe COPD by GOLD classification (HCC) Generalized osteoarthrosis, involving multiple sites Generalized anxiety disorder Chronic low back pain with sciatica, sciatica laterality unspecified, unspecified back pain laterality documented in this encounter [facility] note* Diagnosis Stage 3 severe COPD by GOLD classification (HCC) documented in this encounter [facility] note* Diagnosis No-show for appointment- Primary Stage 3 severe COPD by GOLD classification (HCC) Chronic low back pain with sciatica, sciatica laterality unspecified, unspecified back pain laterality documented in this encounter [facility] note* Diagnosis Palliative care by specialist- Primary [...] Other chronic pain Dependence on supplemental oxygen manager long term care (current) use of 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 [facility]* Diagnosis Stage 3 severe COPD by GOLD classification (HCC) documented in this encounter [facility] note* Diagnosis Severe aortic stenosis- Primary Aortic valve disorders Chronic respiratory failure with hypoxia ([facility]) documented in this encounter [facility] note* Diagnosis Preop cardiovascular exam- Primary Pre-operative cardiovascular examination Nonrheumatic aortic valve stenosis Preop cardiovascular exam- Primary Pre-operative cardiovascular examination documented in this encounter [facility] note* Diagnosis Itching- Primary Unspecified pruritic disorder [facility] Author José Smith [facility] July 20, 2023 4:55am Note Date/Time July 20, 2023 4:2 4am [facility] Medical Records Department [address] [place] [address] H&P Exam - Hospitalist 07/20/23 0406 MR#: [id number] Acct: [id number] Name: DENIA GONZALEZ Rep #:[id number] : 1955 68 From: José Abebe DO PCP: Dr. Yoseph Fall MD Status:AD M IN Location: [facility] [id number] HPI - General General Date of Admission: [...] anxiety, GERD and OA who presents to [facility] ER complaining of shortness of breath, [...] exacerbation of COPD with clinical evidence of ecmxf-gk-ecgihsb hypoxic respiratory insufficiency likely due to recent viral URI in the setting of ongoing tobacco abuse and she was then admitted to the general medical floor forongoin care for stay that is expected to be greater than 48 hours. [facility] Home Medications albuterol sulfate 90 mcg/actuation [...] % (Auto) 67.5, Lymph % (Auto) 23.7, Trigg% (Auto) 7.6, Eos % (Auto) 0.6, Baso [...] needed nebulizers. Give Tylenol as needed for pgtt-vp-oamtrsbl(level 1- 5/10) pain or fever. Continue Percocet prn for severe (level 6-10/10) pain. Tobacco cessation will be strongly encouraged with nicotine patch offeredto control cravings. 2. Viral URI likely triggering #1 - Check viral respiratory panel and placed oncontact and droplet precautions until confirmed negative. 3. Wtucy-xm-idtmqfo hypoxic respiratory insufficiency arising from #1 & [...] 55 minutes. Charges/Coding Visit Charges Inpatient E&M: 43740 Init Hosp L2 07/20/23 5137 <Electronically signed by José Cunningham DO> Cosigner Signature (if applicable): CC: Dr. José Cunningham DO; Dr. Yoseph Fall MD~ Signed [facility] Work Phone: History and physical note Author Dionne Porter [facility] Note Date/Time September 29, 2024 4:32a m [facility] Medical Records Department [address] [place] [address] H&P Exam - Hospitalist 09/29/24 0403 MR#: [id number] Acct: [id number] Name: DENIA GONZALEZ Rep #:[id number] : 1955 69 From: Dionne Porter MD [...] allergic rhinitis, HTN who presents to the [facility] ED on 09/29/2024 with history of ~ [...] 78.5 H, Lymph % (Auto) 13.2 L, Trigg % (Auto) 6.9, Eos % (Auto) 0.7, [...] of an acute cardiopulmonary abnormality. Reading Location: [id number] Assessment & Plan Assessment/Plan (1) COPD with acute exacerbation: PLAN: Plan The patient is a 69 y/o F w/ PMHx: GERD, RLS, Anxiety and Depression, Former tobacco use, Former EtOH Abuse, Hx Non-small cell lung cancer status post right lung lobectomy remotely 2003, COPD/Asthma with Chronic Hypoxic Respiratory Failure with allergic rhinitis, HTN who presents to the [facility] ED on 09/29/2024 with history of ~ [...] Code status. Charges/Coding Visit Charges Inpatient E&M: 27649 Init Hosp L3 09/29/24 0432 <Electronically signed by Dionne Porter MD> Cosigner Signature (if applicable): CC: Dr. Dionne Porter MD; Dr. Yoseph Fall MD~ Signed [facility] Work Phone: History and physical note Author Dionne Porter [facility] Note Date/Time December 26, 2024 8:21pm [facility] Medical Records Department [address] [place] [address] H&P Exam - Hospitalist 12/26/241955 MR#: [id number] Acct: [id number] Name: DENIA GONZALEZ Rep #:[id number] : 1955 69 From: Dionne Porter MD PCP: Dr. Yoseph Fall MD Status:AD M IN Location: [facility] [id number] HPI - General General Date of [...] allergic rhinitis, HTN who presents to the [facility] ED on 12/26/2024 with history of 3 to 4 days of progressively worsening fatigue, malaise, dyspnea with chest tightness and wheezing coupled unfortunately with significant panic attacks whenever she has been attempting to leave the house with a productive cough specifically of yellow sputum prompting ED evaluation be cautious. She does report that she is supposed to have a heart cath at [facility] in the next several weeks because of [...] BUN/creatinine 16/0.64, GFR 96, glucose 112, initial [id number] with repeat delta 25, chest x-ray with [...] 1 and Solu-Medrol 125 mg IVx 1. [facility] Medical History Afib Aortic valve stenosis RLS [...] 83.2 H, Lymph % (Auto) 11.3 L, Trigg % (Auto) 4.5, Eos % (Auto) 0.1, [...] acute abnormality. No significant change [id number] Assessment & Plan Assessment/Plan (1) COPD with acute exacerbation: PLAN: Plan The patient is a 69 y/o F w/ PMHx: Valvular Heart Disease, GERD, RLS, Anxiety and Depression, Former tobacco use, Former EtOH Abuse, Hx Non-small cell lung cancer status post right lung lobectomy remotely 2003, COPD/Asthma with Chronic Hypoxic Respiratory Failure (2L NC) with allergic rhinitis, HTN who presents to the [facility] ED on 12/26/2024 with history of 3 [...] with plan as noted for evaluation at [facility] with upcoming cardiac catheterization for consideration of [...] 16 minutes. Charges/Coding Visit Charges Inpatient E&M: 14304 Init Hosp L3 Procedures Hospitalists Procedures: 95485 Advncd Care Plan 30 Min 12/26/242020 <Electronically signed by Dionne Porter MD> Cosigner Signature (if applicable): CC: Dr. Dionne Porter MD; Dr. Yoseph Fall MD~ Signed [facility] Work Phone: Hospital Discharge instructions Additional [...] needed for your shortness of breath and wheezing.[facility] Work Phone: Reason for referral (narrative)* Outpatient Procedure (Routine) - Pending Review Specialty Diagnoses / Procedures Referred By Contac t Referred To Contact [facility] Diagnoses Chronic obstructive pulmonary disease, unspecified COPD type (HCC) Procedures OXIMETRY WITH AMBULATION NONINVASIVE EAR/PULSE OXIMETRY MULTIPLE Michelle Marie MD [address] [place] [address] Respiratory [place] [address] [place] [address] Referral ID Status Reason Start Date Expiration Date Visits Requested Visits Authorized [id number] Pending Review Auto-Generat ed Referral 01/13/2022 02/12/2023 1 1 [facility] for referral (narrative)* Diagnostic Procedure Only (Routine) - Pending Review Specialty Diagnoses / Procedures Referred By Contac Referred To Contact [facility] Diagnoses Encounter for screening mammogram for breast cancer Procedures MICKIE SCREENING SCREENING MAMMOGRAPHY BI 2-VIEW BREAST INC CAD Yoseph Fall MD [address] [place] [address] [facility] [address] [place] [address] Referral ID Status Reason Start Date Expiration Date Visits Requested Visits Authorized [id number] Pending Review Auto-Generat ed Referral 06/16/2023 07/15/2024 1 1 [facility] for referral (narrative)No reason for referral information availableWP[facility] Work Phone: Advance Directives Documents on File Type Date Recorded Patient Right Of Way Agent Expl anation Advance Directive(s) 08/04/2016 2:40 PM Advance Directive(s) 08/04/2016 3:52 PM Advance Directive(s) 06/21/2016 6:38 PM Documents on File Type Date Recorded Patient Right Of Way Agent Expl anation Advance Directive(s) 08/04/2016 3:52 PM Documents on File Type Date Recorded Patient Right Of Way Agent Expl anation Advance Directive(s) 08/04/2016 3:52 PM Advance Directive Response Recorded Date/ Time Advance Directives No May 08, 2016 10:32am Living Will No July 20, 2023 5:03am Power of Industrial Truck Mechanic No July 19 5:03am Advance Directive Response Recorded Date/ Time Do you have a Healthcare Power of Industrial Truck Mechanic? No September 29, 2024 2:42am Advance Directives No May 08, 2016 10:32am Advance Directive Response Recorded Date/ Time Do you have a Healthcare Power of Industrial Truck Mechanic? No September 29, 2024 5:11am Advance Directives No May 08, 2016 10:32am Advance Directive Response Recorded Date/ Time Do you have a Healthcare Power of Industrial Truck Mechanic? No September 29, 2024 5:11am Do you have a Healthcare Power of Industrial Truck Mechanic? No December 26, 2024 4:37pm Advance Directives No May 08, 2016 10:32am Chief Complaint and Reason for Visit Chief Complaint ACUTE EXACERBATION O F COPD WITH [id number] Reason for Visit COPD (chronic obstru ctive pulmonary disease) Hypoxia Respiratory insufficiency Viral URI with cough COPD with acute exacerbation Chief Complaint ACUTE EXACERBATION O F COPD WITH [id number] ACUTE EXACERBATION OF COPD WITH [id number] ACUTE EXACERBATION OF COPD WITH [id number] Reason for Visit COPD (chronic obstru ctive [...] EXACERBATION October 09, 2024 3:58 pm S/P [facility] 10/09 New AFIB/Severe October 12:58pm Reason for [...] EXACERBATION October 09, 2024 3:58 pm S/P [facility] 10/09 New AFIB/Severe October 12:58pm COPD EXACERBATION, [...] involving multiple sites Iman Person APRN.CNP [address] [place] [address] Referral ID Status Reason Start Date Expiration Date V isits Requested Visits Authorized [id number] Pending Review 1 1 Specialty Diagnoses / Procedures Referred By Contac t Referred To Contact Diagnoses Generalized osteoarthrosis, involving multiple sites Yoseph Fall MD [address] [place] [address] Referral ID Status Reason Start Date Expiration Date V isits Requested Visits Authorized [id number] Pending Review 1 1 Referral ID Status Reason Start Date Expiration Date V isits Requested Visits Authorized [id number] Pending Review 1 1 Summary Purpose Additional Source Comments Source Comments (unrecognize d section and content) In the event this informatio n is protected by the Federal Confidentiality of Alcohol and Drug Abuse Patient Records regulations: The Federal rules restrict any use of the information to criminally investigate or prosecute any alcohol or drug abuse patient.[facility] the event this information is protected by the Federal Confidentiality of Alcohol and Drug Abuse Patient Records regulations: The Federal rules restrict any use of the information to criminally investigate or prosecute any alcohol or drug abuse patient.[facility] HospitalIn the event this information is protected by the Federal Confidentiality of Alcohol and Drug Abuse Patient Records regulations: The Federal rules restrict any use of the information to criminally investigate or prosecute any alcohol or drug abuse patient.[facility] HospitalIn the event this information is protected by the Federal Confidentiality of Alcohol and Drug Abuse Patient Records regulations: The Federal rules restrict any use of the information to criminally investigate or prosecute any alcohol or drug abuse patient.[facility] HospitalIn the event this information is protected by the Federal Confidentiality of Alcohol and Drug Abuse Patient Records regulations: The Federal rules restrict any use of the information to criminally investigate or prosecute any alcohol or drug abuse patient.[facility] HospitalIn the event this information is protected by the Federal Confidentiality of Alcohol and Drug Abuse Patient Records regulations: The Federal rules restrict any use of the information to criminally investigate or prosecute any alcohol or drug abuse patient.[facility] HospitalIn the event this information is protected by the Federal Confidentiality of Alcohol and Drug Abuse Patient Records regulations: The Federal rules restrict any use of the information to criminally investigate or prosecute any alcohol or drug abuse patient.[facility] HospitalIn the event this information is protected by the Federal Confidentiality of Alcohol and Drug Abuse Patient Records regulations: The Federal rules restrict any use of the information to criminally investigate or prosecute any alcohol or drug abuse patient.[facility] HospitalIn the event this information is protected by the Federal Confidentiality of Alcohol and Drug Abuse Patient Records regulations: The Federal rules restrict any use of the information to criminally investigate or prosecute any alcohol or drug abuse patient.[facility] HospitalIn the event this information is protected by the Federal Confidentiality of Alcohol and Drug Abuse Patient Records regulations: The Federal rules restrict any use of the information to criminally investigate or prosecute any alcohol or drug abuse patient.[facility] HospitalIn the event this information is protected by the Federal Confidentiality of Alcohol and Drug Abuse Patient Records regulations: The Federal rules restrict any use of the information to criminally investigate or prosecute any alcohol or drug abuse patient.[facility] HospitalIn the event this information is protected by the Federal Confidentiality of Alcohol and Drug Abuse Patient Records regulations: The Federal rules restrict any use of the information to criminally investigate or prosecute any alcohol or drug abuse patient.[facility] HospitalIn the event this information is protected by the Federal Confidentiality of Alcohol and Drug Abuse Patient Records regulations: The Federal rules restrict any use of the information to criminally investigate or prosecute any alcohol or drug abuse patient.[facility] HospitalIn the event this information is protected by the Federal Confidentiality of Alcohol and Drug Abuse Patient Records regulations: The Federal rules restrict any use of the information to criminally investigate or prosecute any alcohol or drug abuse patient.[facility] HospitalIn the event this information is protected by the Federal Confidentiality of Alcohol and Drug Abuse Patient Records regulations: The Federal rules restrict any use of the information to criminally investigate or prosecute any alcohol or drug abuse patient.[facility] HospitalIn the event this information is protected by the Federal Confidentiality of Alcohol and Drug Abuse Patient Records regulations: The Federal rules restrict any use of the information to criminally investigate or prosecute any alcohol or drug abuse patient.[facility] HospitalIn the event this information is protected by the Federal Confidentiality of Alcohol and Drug Abuse Patient Records regulations: The Federal rules restrict any use of the information to criminally investigate or prosecute any alcohol or drug abuse patient.[facility] HospitalIn the event this information is protected by the Federal Confidentiality of Alcohol and Drug Abuse Patient Records regulations: The Federal rules restrict any use of the information to criminally investigate or prosecute any alcohol or drug abuse patient.[facility] HospitalIn the event this information is protected by the Federal Confidentiality of Alcohol and Drug Abuse Patient Records regulations: The Federal rules restrict any use of the information to criminally investigate or prosecute any alcohol or drug abuse patient.[facility] HospitalIn the event this information is protected by the Federal Confidentiality of Alcohol and Drug Abuse Patient Records regulations: The Federal rules restrict any use of the information to criminally investigate or prosecute any alcohol or drug abuse patient.[facility] HospitalIn the event this information is protected by the Federal Confidentiality of Alcohol and Drug Abuse Patient Records regulations: The Federal rules restrict any use of the information to criminally investigate or prosecute any alcohol or drug abuse patient.[facility] HospitalIn the event this information is protected by the Federal Confidentiality of Alcohol and Drug Abuse Patient Records regulations: The Federal rules restrict any use of the information to criminally investigate or prosecute any alcohol or drug abuse patient.[facility] HospitalIn the event this information is protected by the Federal Confidentiality of Alcohol and Drug Abuse Patient Records regulations: The Federal rules restrict any use of the information to criminally investigate or prosecute any alcohol or drug abuse patient.[facility] HospitalIn the event this information is protected by the Federal Confidentiality of Alcohol and Drug Abuse Patient Records regulations: The Federal rules restrict any use of the information to criminally investigate or prosecute any alcohol or drug abuse patient.[facility] HospitalIn the event this information is protected by the Federal Confidentiality of Alcohol and Drug Abuse Patient Records regulations: The Federal rules restrict any use of the information to criminally investigate or prosecute any alcohol or drug abuse patient.[facility] HospitalIn the event this information is protected by the Federal Confidentiality of Alcohol and Drug Abuse Patient Records regulations: The Federal rules restrict any use of the information to criminally investigate or prosecute any alcohol or drug abuse patient.[facility] HospitalIn the event this information is protected by the Federal Confidentiality of Alcohol and Drug Abuse Patient Records regulations: The Federal rules restrict any use of the information to criminally investigate or prosecute any alcohol or drug abuse patient.[facility] HospitalIn the event this information is protected by the Federal Confidentiality of Alcohol and Drug Abuse Patient Records regulations: The Federal rules restrict any use of the information to criminally investigate or prosecute any alcohol or drug abuse patient.[facility] HospitalIn the event this information is protected by the Federal Confidentiality of Alcohol and Drug Abuse Patient Records regulations: The Federal rules restrict any use of the information to criminally investigate or prosecute any alcohol or drug abuse patient.[facility] HospitalIn the event this information is protected by the Federal Confidentiality of Alcohol and Drug Abuse Patient Records regulations: The Federal rules restrict any use of the information to criminally investigate or prosecute any alcohol or drug abuse patient.[facility] HospitalIn the event this information is protected by the Federal Confidentiality of Alcohol and Drug Abuse Patient Records regulations: The Federal rules restrict any use of the information to criminally investigate or prosecute any alcohol or drug abuse patient.[facility] HospitalIn the event this information is protected by the Federal Confidentiality of Alcohol and Drug Abuse Patient Records regulations: The Federal rules restrict any use of the information to criminally investigate or prosecute any alcohol or drug abuse patient.[facility] HospitalIn the event this information is protected by the Federal Confidentiality of Alcohol and Drug Abuse Patient Records regulations: The Federal rules restrict any use of the information to criminally investigate or prosecute any alcohol or drug abuse patient.[facility] HospitalIn the event this information is protected by the Federal Confidentiality of Alcohol and Drug Abuse Patient Records regulations: The Federal rules restrict any use of the information to criminally investigate or prosecute any alcohol or drug abuse patient.[facility] HospitalIn the event this information is protected by the Federal Confidentiality of Alcohol and Drug Abuse Patient Records regulations: The Federal rules restrict any use of the information to criminally investigate or prosecute any alcohol or drug abuse patient.[facility] HospitalIn the event this information is protected by the Federal Confidentiality of Alcohol and Drug Abuse Patient Records regulations: The Federal rules restrict any use of the information to criminally investigate or prosecute any alcohol or drug abuse patient.[facility] HospitalIn the event this information is protected by the Federal Confidentiality of Alcohol and Drug Abuse Patient Records regulations: The Federal rules restrict any use of the information to criminally investigate or prosecute any alcohol or drug abuse patient.[facility] HospitalIn the event this information is protected by the Federal Confidentiality of Alcohol and Drug Abuse Patient Records regulations: The Federal rules restrict any use of the information to criminally investigate or prosecute any alcohol or drug abuse patient.[facility] HospitalIn the event this information is protected by the Federal Confidentiality of Alcohol and Drug Abuse Patient Records regulations: The Federal rules restrict any use of the information to criminally investigate or prosecute any alcohol or drug abuse patient.[facility] HospitalIn the event this information is protected by the Federal Confidentiality of Alcohol and Drug Abuse Patient Records regulations: The Federal rules restrict any use of the information to criminally investigate or prosecute any alcohol or drug abuse patient.[facility] HospitalIn the event this information is protected by the Federal Confidentiality of Alcohol and Drug Abuse Patient Records regulations: The Federal rules restrict any use of the information to criminally investigate or prosecute any alcohol or drug abuse patient.[facility] HospitalIn the event this information is protected by the Federal Confidentiality of Alcohol and Drug Abuse Patient Records regulations: The Federal rules restrict any use of the information to criminally investigate or prosecute any alcohol or drug abuse patient.[facility] HospitalIn the event this information is protected by the Federal Confidentiality of Alcohol and Drug Abuse Patient Records regulations: The Federal rules restrict any use of the information to criminally investigate or prosecute any alcohol or drug abuse patient.[facility] HospitalIn the event this information is protected by the Federal Confidentiality of Alcohol and Drug Abuse Patient Records regulations: The Federal rules restrict any use of the information to criminally investigate or prosecute any alcohol or drug abuse patient.[facility] HospitalIn the event this information is protected by the Federal Confidentiality of Alcohol and Drug Abuse Patient Records regulations: The Federal rules restrict any use of the information to criminally investigate or prosecute any alcohol or drug abuse patient.[facility] HospitalIn the event this information is protected by the Federal Confidentiality of Alcohol and Drug Abuse Patient Records regulations: The Federal rules restrict any use of the information to criminally investigate or prosecute any alcohol or drug abuse patient.[facility] HospitalIn the event this information is protected by the Federal Confidentiality of Alcohol and Drug Abuse Patient Records regulations: The Federal rules restrict any use of the information to criminally investigate or prosecute any alcohol or drug abuse patient.[facility] HospitalIn the event this information is protected by the Federal Confidentiality of Alcohol and Drug Abuse Patient Records regulations: The Federal rules restrict any use of the information to criminally investigate or prosecute any alcohol or drug abuse patient.[facility] HospitalIn the event this information is protected by the Federal Confidentiality of Alcohol and Drug Abuse Patient Records regulations: The Federal rules restrict any use of the information to criminally investigate or prosecute any alcohol or drug abuse patient.[facility] HospitalIn the event this information is protected by the Federal Confidentiality of Alcohol and Drug Abuse Patient Records regulations: The Federal rules restrict any use of the information to criminally investigate or prosecute any alcohol or drug abuse patient.[facility] HospitalIn the event this information is protected by the Federal Confidentiality of Alcohol and Drug Abuse Patient Records regulations: The Federal rules restrict any use of the information to criminally investigate or prosecute any alcohol or drug abuse patient.[facility] HospitalIn the event this information is protected by the Federal Confidentiality of Alcohol and Drug Abuse Patient Records regulations: The Federal rules restrict any use of the information to criminally investigate or prosecute any alcohol or drug abuse patient.[facility] HospitalIn the event this information is protected by the Federal Confidentiality of Alcohol and Drug Abuse Patient Records regulations: The Federal rules restrict any use of the information to criminally investigate or prosecute any alcohol or drug abuse patient.[facility] HospitalIn the event this information is protected by the Federal Confidentiality of Alcohol and Drug Abuse Patient Records regulations: The Federal rules restrict any use of the information to criminally investigate or prosecute any alcohol or drug abuse patient.[facility] HospitalIn the event this information is protected by the Federal Confidentiality of Alcohol and Drug Abuse Patient Records regulations: The Federal rules restrict any use of the information to criminally investigate or prosecute any alcohol or drug abuse patient.[facility] HospitalIn the event this information is protected by the Federal Confidentiality of Alcohol and Drug Abuse Patient Records regulations: The Federal rules restrict any use of the information to criminally investigate or prosecute any alcohol or drug abuse patient.[facility] HospitalIn the event this information is protected by the Federal Confidentiality of Alcohol and Drug Abuse Patient Records regulations: The Federal rules restrict any use of the information to criminally investigate or prosecute any alcohol or drug abuse patient.[facility] HospitalIn the event this information is protected by the Federal Confidentiality of Alcohol and Drug Abuse Patient Records regulations: The Federal rules restrict any use of the information to criminally investigate or prosecute any alcohol or drug abuse patient.[facility] HospitalIn the event this information is protected by the Federal Confidentiality of Alcohol and Drug Abuse Patient Records regulations: The Federal rules restrict any use of the information to criminally investigate or prosecute any alcohol or drug abuse patient.[facility] HospitalIn the event this information is protected by the Federal Confidentiality of Alcohol and Drug Abuse Patient Records regulations: The Federal rules restrict any use of the information to criminally investigate or prosecute any alcohol or drug abuse patient.[facility] HospitalIn the event this information is protected by the Federal Confidentiality of Alcohol and Drug Abuse Patient Records regulations: The Federal rules restrict any use of the information to criminally investigate or prosecute any alcohol or drug abuse patient.[facility] HospitalIn the event this information is protected by the Federal Confidentiality of Alcohol and Drug Abuse Patient Records regulations: The Federal rules restrict any use of the information to criminally investigate or prosecute any alcohol or drug abuse patient.[facility] HospitalIn the event this information is protected by the Federal Confidentiality of Alcohol and Drug Abuse Patient Records regulations: The Federal rules restrict any use of the information to criminally investigate or prosecute any alcohol or drug abuse patient.[facility] HospitalIn the event this information is protected by the Federal Confidentiality of Alcohol and Drug Abuse Patient Records regulations: The Federal rules restrict any use of the information to criminally investigate or prosecute any alcohol or drug abuse patient.[facility] HospitalIn the event this information is protected by the Federal Confidentiality of Alcohol and Drug Abuse Patient Records regulations: The Federal rules restrict any use of the information to criminally investigate or prosecute any alcohol or drug abuse patient.[facility] HospitalIn the event this information is protected by the Federal Confidentiality of Alcohol and Drug Abuse Patient Records regulations: The Federal rules restrict any use of the information to criminally investigate or prosecute any alcohol or drug abuse patient.[facility] HospitalIn the event this information is protected by the Federal Confidentiality of Alcohol and Drug Abuse Patient Records regulations: The Federal rules restrict any use of the information to criminally investigate or prosecute any alcohol or drug abuse patient.[facility] HospitalIn the event this information is protected by the Federal Confidentiality of Alcohol and Drug Abuse Patient Records regulations: The Federal rules restrict any use of the information to criminally investigate or prosecute any alcohol or drug abuse patient.[facility] HospitalIn the event this information is protected by the Federal Confidentiality of Alcohol and Drug Abuse Patient Records regulations: The Federal rules restrict any use of the information to criminally investigate or prosecute any alcohol or drug abuse patient.[facility] HospitalIn the event this information is protected by the Federal Confidentiality of Alcohol and Drug Abuse Patient Records regulations: The Federal rules restrict any use of the information to criminally investigate or prosecute any alcohol or drug abuse patient.[facility] HospitalIn the event this information is protected by the Federal Confidentiality of Alcohol and Drug Abuse Patient Records regulations: The Federal rules restrict any use of the information to criminally investigate or prosecute any alcohol or drug abuse patient.[facility] HospitalIn the event this information is protected by the Federal Confidentiality of Alcohol and Drug Abuse Patient Records regulations: The Federal rules restrict any use of the information to criminally investigate or prosecute any alcohol or drug abuse patient.[facility] HospitalIn the event this information is protected by the Federal Confidentiality of Alcohol and Drug Abuse Patient Records regulations: The Federal rules restrict any use of the information to criminally investigate or prosecute any alcohol or drug abuse patient.[facility] HospitalIn the event this information is protected by the Federal Confidentiality of Alcohol and Drug Abuse Patient Records regulations: The Federal rules restrict any use of the information to criminally investigate or prosecute any alcohol or drug abuse patient.[facility] HospitalIn the event this information is protected by the Federal Confidentiality of Alcohol and Drug Abuse Patient Records regulations: The Federal rules restrict any use of the information to criminally investigate or prosecute any alcohol or drug abuse patient.[facility] HospitalIn the event this information is protected by the Federal Confidentiality of Alcohol and Drug Abuse Patient Records regulations: The Federal rules restrict any use of the information to criminally investigate or prosecute any alcohol or drug abuse patient.[facility] HospitalIn the event this information is protected by the Federal Confidentiality of Alcohol and Drug Abuse Patient Records regulations: The Federal rules restrict any use of the information to criminally investigate or prosecute any alcohol or drug abuse patient.[facility] HospitalIn the event this information is protected by the Federal Confidentiality of Alcohol and Drug Abuse Patient Records regulations: The Federal rules restrict any use of the information to criminally investigate or prosecute any alcohol or drug abuse patient.[facility] HospitalIn the event this information is protected by the Federal Confidentiality of Alcohol and Drug Abuse Patient Records regulations: The Federal rules restrict any use of the information to criminally investigate or prosecute any alcohol or drug abuse patient.[facility] HospitalIn the event this information is protected by the Federal Confidentiality of Alcohol and Drug Abuse Patient Records regulations: The Federal rules restrict any use of the information to criminally investigate or prosecute any alcohol or drug abuse patient.[facility] HospitalIn the event this information is protected by the Federal Confidentiality of Alcohol and Drug Abuse Patient Records regulations: The Federal rules restrict any use of the information to criminally investigate or prosecute any alcohol or drug abuse patient.[facility] HospitalIn the event this information is protected by the Federal Confidentiality of Alcohol and Drug Abuse Patient Records regulations: The Federal rules restrict any use of the information to criminally investigate or prosecute any alcohol or drug abuse patient.[facility] HospitalIn the event this information is protected by the Federal Confidentiality of Alcohol and Drug Abuse Patient Records regulations: The Federal rules restrict any use of the information to criminally investigate or prosecute any alcohol or drug abuse patient.[facility] HospitalIn the event this information is protected by the Federal Confidentiality of Alcohol and Drug Abuse Patient Records regulations: The Federal rules restrict any use of the information to criminally investigate or prosecute any alcohol or drug abuse patient.[facility] HospitalIn the event this information is protected by the Federal Confidentiality of Alcohol and Drug Abuse Patient Records regulations: The Federal rules restrict any use of the information to criminally investigate or prosecute any alcohol or drug abuse patient.[facility] HospitalIn the event this information is protected by the Federal Confidentiality of Alcohol and Drug Abuse Patient Records regulations: The Federal rules restrict any use of the information to criminally investigate or prosecute any alcohol or drug abuse patient.[facility] HospitalIn the event this information is protected by the Federal Confidentiality of Alcohol and Drug Abuse Patient Records regulations: The Federal rules restrict any use of the information to criminally investigate or prosecute any alcohol or drug abuse patient.[facility] HospitalIn the event this information is protected by the Federal Confidentiality of Alcohol and Drug Abuse Patient Records regulations: The Federal rules restrict any use of the information to criminally investigate or prosecute any alcohol or drug abuse patient.[facility] HospitalIn the event this information is protected by the Federal Confidentiality of Alcohol and Drug Abuse Patient Records regulations: The Federal rules restrict any use of the information to criminally investigate or prosecute any alcohol or drug abuse patient.[facility] HospitalIn the event this information is protected by the Federal Confidentiality of Alcohol and Drug Abuse Patient Records regulations: The Federal rules restrict any use of the information to criminally investigate or prosecute any alcohol or drug abuse patient.[facility] HospitalIn the event this information is protected by the Federal Confidentiality of Alcohol and Drug Abuse Patient Records regulations: The Federal rules restrict any use of the information to criminally investigate or prosecute any alcohol or drug abuse patient.[facility] HospitalIn the event this information is protected by the Federal Confidentiality of Alcohol and Drug Abuse Patient Records regulations: The Federal rules restrict any use of the information to criminally investigate or prosecute any alcohol or drug abuse patient.[facility] HospitalIn the event this information is protected by the Federal Confidentiality of Alcohol and Drug Abuse Patient Records regulations: The Federal rules restrict any use of the information to criminally investigate or prosecute any alcohol or drug abuse patient.[facility] HospitalIn the event this information is protected by the Federal Confidentiality of Alcohol and Drug Abuse Patient Records regulations: The Federal rules restrict any use of the information to criminally investigate or prosecute any alcohol or drug abuse patient.[facility] HospitalIn the event this information is protected by the Federal Confidentiality of Alcohol and Drug Abuse Patient Records regulations: The Federal rules restrict any use of the information to criminally investigate or prosecute any alcohol or drug abuse patient.[facility] HospitalIn the event this information is protected by the Federal Confidentiality of Alcohol and Drug Abuse Patient Records regulations: The Federal rules restrict any use of the information to criminally investigate or prosecute any alcohol or drug abuse patient.[facility] HospitalIn the event this information is protected by the Federal Confidentiality of Alcohol and Drug Abuse Patient Records regulations: The Federal rules restrict any use of the information to criminally investigate or prosecute any alcohol or drug abuse patient.[facility] HospitalIn the event this information is protected by the Federal Confidentiality of Alcohol and Drug Abuse Patient Records regulations: The Federal rules restrict any use of the information to criminally investigate or prosecute any alcohol or drug abuse patient.[facility] HospitalIn the event this information is protected by the Federal Confidentiality of Alcohol and Drug Abuse Patient Records regulations: The Federal rules restrict any use of the information to criminally investigate or prosecute any alcohol or drug abuse patient.[facility] HospitalIn the event this information is protected by the Federal Confidentiality of Alcohol and Drug Abuse Patient Records regulations: The Federal rules restrict any use of the information to criminally investigate or prosecute any alcohol or drug abuse patient.[facility] HospitalIn the event this information is protected by the Federal Confidentiality of Alcohol and Drug Abuse Patient Records regulations: The Federal rules restrict any use of the information to criminally investigate or prosecute any alcohol or drug abuse patient.[facility] HospitalIn the event this information is protected by the Federal Confidentiality of Alcohol and Drug Abuse Patient Records regulations: The Federal rules restrict any use of the information to criminally investigate or prosecute any alcohol or drug abuse patient.[facility] HospitalIn the event this information is protected by the Federal Confidentiality of Alcohol and Drug Abuse Patient Records regulations: The Federal rules restrict any use of the information to criminally investigate or prosecute any alcohol or drug abuse patient.[facility] HospitalIn the event this information is protected by the Federal Confidentiality of Alcohol and Drug Abuse Patient Records regulations: The Federal rules restrict any use of the information to criminally investigate or prosecute any alcohol or drug abuse patient.[facility] Care Teams (unrecognized sec tion and content) Instantizer Operator Relationship Specialty Start Date End Date Yoseph Fall MD [address] [place] [address] PCP - General 04/17/09 Instantizer Operator Relationship Specialty Start Date End Date Yoseph Fall MD [address] [place] [address] PCP - General 04/17/09 Instantizer Operator Relationship Specialty Start Date End Date Yoseph Fall MD [address] [place] [address] PCP - General 04/17/09 Instantizer Operator Relationship Specialty Start Date End Date Yoseph Fall MD [facility] [place] [address] PCP - General 04/17/09 Instantizer Operator Relationship Specialty Start Date End Date Yoseph Fall MD [address] [facility] [place] [address] PCP - General 04/17/09 Instantizer Operator Relationship Specialty Start Date End Date Yoseph Fall MD [address] [facility] [place] [address] PCP - General 04/17/09 Instantizer Operator Relationship Specialty [place] [address] [place] [address], [place] [address] PCP - General 04/17/09 Instantizer Operator Relationship Specialty Start Date End Date Yoseph Fall MD [address] [place] [address], [place] [address] PCP - General 04/17/09 Instantizer Operator Relationship Specialty Start Date End Date Yoseph Fall MD [address] [facility] [place] [address] PCP - General 04/17/09 Instantizer Operator Relationship Specialty Start Date End Date Yoseph Fall MD [address] [facility] [place] [address] PCP - General 04/17/09 Instantizer Operator Relationship Specialty Start Date End Date Yoseph Fall MD [address] [facility] [place] [address] PCP - General 04/17/09 Instantizer Operator Relationship Specialty Start Date End Date Yoseph Fall MD [address] [facility] [place] [address] PCP - General 04/17/09 Instantizer Operator Relationship Specialty Start Date End Date Yoseph Fall MD [address] [facility] [place] [address] PCP - General 04/17/09 Instantizer Operator Relationship Specialty Start Date End Date Yoseph Fall MD [address] [facility] [place] [address] PCP - General 04/17/09 Instantizer Operator Relationship Specialty Start Date End Date Yoseph Fall MD [address] [place] [address] PCP - General 04/17/09 Instantizer Operator Relationship Specialty Start Date End Date Yoseph Fall MD [address] [place] [address] PCP - General 04/17/09 Instantizer Operator Relationship Specialty Start Date End Date Yoseph Fall MD [address] [place] [address] PCP - General 04/17/09 Instantizer Operator Relationship Specialty Start Date End Date Yoseph Fall MD [address] [place] [address] PCP - General 04/17/09 Instantizer Operator Relationship Specialty Start Date End Date Yoseph Fall MD [address] [place] [address] PCP - General 04/17/09 Instantizer Operator Relationship Specialty Start Date End Date Yoseph Fall MD [address] [place] [address] PCP - General 04/17/09 Instantizer Operator Relationship Specialty Start Date End Date Yoseph Fall MD [address] [place] [address] PCP - General 04/17/09 Instantizer Operator Relationship Specialty Start Date End Date Yoseph Flal MD [address] [place], [place] [address] PCP - General 04/17/09 Instantizer Operator Relationship Specialty Start Date End Date Yoseph Fall MD [address] [place], [place] [address] PCP - General 04/17/09 Instantizer Operator Relationship Specialty Start Date End Date Yoseph Fall MD [address] [place], [place] [address]11 PCP - General 04/17/09 Instantizer Operator Relationship Specialty Start Date End Date Yoseph Fall MD [address] [place], [place] [address] PCP - General 04/17/09 Instantizer Operator Relationship Specialty Start Date End Date Yoseph Fall MD [address] [place], [place] [address]88781 PCP - General 04/17/09 Team Status: Active Member Role Status Dates Dr. Yoseph Fall MD Primary Care Provider Active Team Status: Active Member Role Status Dates Dr. Yoseph Fall MD Primary Care Provider Active Dr. Dallas Mena MD Emergency Provider Active Dr. José Cunningham DO Admit Provider, Attending Pr ovider Active Instantizer Operator Relationship Specialty Start Date End Date Yoseph Fall MD [address] [place], [place] 410391 PCP - General 04/17/09 Team Status: Active [...] Dr. Jan Bolanos MD Attending Provider Active Instantizer Operator Relationship Specialty Start Date End Date Yoseph Fall MD [address] [place] [address] PCP - General 04/17/09 Instantizer Operator Relationship Specialty Start Date End Date Yoseph Fall MD [address] [place] [address] PCP - General 04/17/09 Instantizer Operator Relationship Specialty Start Date End Date Yoseph Fall MD [address] [place] [address] PCP - General 04/17/09 Instantizer Operator Relationship Specialty Start Date End Date Yoseph Fall MD [address] [place] [address] PCP - General 04/17/09 Instantizer Operator Relationship Specialty Start Date End Date Yoseph Fall MD [address] [place] [address] PCP - General 04/17/09 Instantizer Operator Relationship Specialty Start Date End Date Yoseph Fall MD [address] [place] [address] PCP - General 04/17/09 Instantizer Operator Relationship Specialty Start Date End Date Yoseph Fall MD [address] [place] [address] PCP - General 04/17/09 Iman Person APRN.RESEARCH ASSISTANT PROFESSOR [address] [place] [address] [facility] 04/02/24 Instantizer Operator Relationship Specialty Start Date End Date Yoseph Fall MD [address] [place] [address] PCP - General 04/17/09 Iman Person APRN.RESEARCH ASSISTANT PROFESSOR [address] [place] [address] [facility] 04/02/24 Instantizer Operator Relationship Specialty Start Date End Date Yoseph Fall MD [address] [place] [address] PCP - General 04/17/09 Iman Person APRN.RESEARCH ASSISTANT PROFESSOR [address] [place] [address] Commercial [facility] 04/02/24 Nelson Robert APRN.RESEARCH ASSISTANT PROFESSOR [address] [place] [address] [facility] 04/11/24 Instantizer Operator Relationship Specialty Start Date End Date Yoseph Fall MD [address] [place] [address] PCP - General 04/17/09 Iman Person APRN.RESEARCH ASSISTANT PROFESSOR [address] [place] [address] [facility] 04/02/24 Nelson Robert APRN.RESEARCH ASSISTANT PROFESSOR [address] [facility] [place] [place] [address] Commercial Art [facility] 04/11/24 Instantizer Operator Relationship Specialty Start Date End Date Yoseph Fall MD [address] [facility] [place] [address] PCP - General 04/17/09 Iman Person APRN.RESEARCH ASSISTANT PROFESSOR [address] [facility] [place] [place] [address] Commercial Art Instructor [facility] Medicine 04/02/24 Nelson Robert APRN.RESEARCH ASSISTANT PROFESSOR [address] [facility] [place] [place] [address] Commercial Art [facility] 04/11/24 Instantizer Operator Relationship Specialty Start Date End Date Yoseph Fall MD [address] [facility] [place] [address] PCP - General 04/17/09 Iman Person APRN.RESEARCH ASSISTANT PROFESSOR [address] [facility] [place] [place] [address] [facility] 04/02/24 Nelson Robert APRN.RESEARCH ASSISTANT PROFESSOR [address] [facility] [place] [address] Commercial [facility] 04/11/24 Instantizer Operator Relationship Specialty Start Date End Date Yoseph Fall MD [address] [facility] [place] [address] PCP - General 04/17/09 Iman Person APRN.RESEARCH ASSISTANT PROFESSOR [address] [place] [address] Commercial Art Instructor Family Medicine 04/02/24 Nelson Robert APRN.RESEARCH ASSISTANT PROFESSOR [address] [place] [address] Commercial Art Instructor Family Medicine 04/11/24 Instantizer Operator Relationship Specialty Start Date End Date Yoseph Fall MD [address] [place] [address] PCP - General 04/17/09 Iman Person APRN.RESEARCH ASSISTANT PROFESSOR [address] [place] [address] Commercial Art Instructor Family Medicine 04/02/24 Nelson Robert APRN.RESEARCH ASSISTANT PROFESSOR [address] [place] [address] Commercial Art Instructor [facility] 04/11/24 Instantizer Operator Relationship Specialty Start Date End Date Yoseph Fall MD [address] [place] [address] PCP - General 04/17/09 Iman Person APRN.RESEARCH ASSISTANT PROFESSOR [address] [place] [address] Commercial Art Instructor Family Medicine 04/02/24 Nelson Robert APRN.RESEARCH ASSISTANT PROFESSOR [address] [place] [address] Commercial Art Instructor Family Medicine 04/11/24 Instantizer Operator Relationship Specialty Start Date End Date Yoseph Fall MD [address] [place] [address] PCP - General 04/17/09 Iman Person APRN.RESEARCH ASSISTANT PROFESSOR [address] [place] [address] Commercial Art Instructor Family [facility] 04/02/24 Nelson Robert APRN.RESEARCH ASSISTANT PROFESSOR [address] [place] [address] Commercial Art Instructor [facility] 04/11/24 Instantizer Operator Relationship Specialty Start Date End Date Yoseph Fall MD [address] [place] [address] PCP - General 04/17/09 Iman Person APRN.RESEARCH ASSISTANT PROFESSOR [address] [place] [address] Commercial Art Instructor [facility] 04/02/24 Nelson Robert APRN.RESEARCH ASSISTANT PROFESSOR [address] [place] [address] Commercial [facility] 04/11/24 Instantizer Operator Relationship Specialty Start Date End Date Yoseph Fall MD [address] [place] [address] PCP - General 04/17/09 Iman Person APRN.RESEARCH ASSISTANT PROFESSOR [address] [place] [address] Commercial Art Instructor Family Medicine 04/02/24 Nelson Robert APRN.RESEARCH ASSISTANT PROFESSOR [address] [place] [address] [facility] 04/11/24 Instantizer Operator Relationship Specialty Start Date End Date Yoseph Fall MD [address] [facility] [place] [address] PCP - General 04/17/09 Iman Person, CUSTOMS INVESTIGATOR.RESEARCH ASSISTANT PROFESSOR [address] [facility] [place] [address] Commercial Art Instructor Family Medicine 04/02/24 Nelson Robert CUSTOMS INVESTIGATOR.RESEARCH ASSISTANT PROFESSOR [address] [facility] [place] [address] Commercial Art Instructor Family Medicine 04/11/24 Instantizer Operator Relationship Specialty Start Date End Date Yoseph Fall MD [address] [facility] [place] [address] PCP - General 04/17/09 Iman Person CUSTOMS INVESTIGATOR.RESEARCH ASSISTANT PROFESSOR [address] [facility] [place] [address] Commercial Art Instructor Family Medicine 04/02/24 Nelson Robert CUSTOMS INVESTIGATOR.RESEARCH ASSISTANT PROFESSOR [address] [facility] [place] [address] Commercial Art Instructor [facility] Medicine 04/11/24 Instantizer Operator Relationship Specialty Start Date End Date Yoseph Fall MD [address] [facility] [place] [address] PCP - General 04/17/09 Nelson Robert CUSTOMS INVESTIGATOR.RESEARCH ASSISTANT PROFESSOR [address] [facility] [place] [address] Commercial Art Instructor Family Medicine 04/11/24 Team Status: Active Member [...] St art: October 07, 2024 Dr. Dionne Portre MD Other Provider Active St art: October [...] Provider Active St art: October 09, 2024 Instantizer Operator Relationship Specialty Start Date End Date Yoseph Fall MD [address] [place] [address] PCP - General 04/17/09 Nelson Robert APRN.RESEARCH ASSISTANT PROFESSOR [address] [place] [address] Commercial Art Instructor [facility] 04/11/24 Instantizer Operator Relationship Specialty Start Date End Date Yoseph Fall MD [address] [place] [address] PCP - General 04/17/09 Nelson Robert APRN.RESEARCH ASSISTANT PROFESSOR [address] [place] [address] Commercial Art Instructor [facility] 04/11/24 Instantizer Operator Relationship Specialty Start Date End Date Yoseph Fall MD [address] [place] [address] PCP - General 04/17/09 Nelson Robert APRN.RESEARCH ASSISTANT PROFESSOR [address] [place] [address] Commercial [facility] 04/11/24 Instantizer Operator Relationship Specialty Start Date End Date Yoseph Fall MD [address] [place] [address] PCP - General 04/17/09 Nelson Robert APRN.RESEARCH ASSISTANT PROFESSOR [address] [place] [address] Commercial Art [facility]Kit [facility] 04/11/24 Instantizer Operator Relationship Specialty Start Date End Date Yoseph Fall MD [address] [place] [address] PCP - General 04/17/09 Nelson Robert APRN.RESEARCH ASSISTANT PROFESSOR [address] [place] [address] Commercial Art Instructor [facility] 04/11/24 Instantizer Operator Relationship Specialty Start Date End Date Yoseph Fall MD [address] [place] [address] PCP - General 04/17/09 Nelson Robert, CUSTOMS INVESTIGATOR.RESEARCH ASSISTANT PROFESSOR [address] [place] [address] Commercial [facility] 04/11/24 Instantizer Operator Relationship Specialty Start Date End Date Yoseph Fall MD [address] [place] [address] PCP - General 04/17/09 Nelson Robert, CUSTOMS INVESTIGATOR.RESEARCH ASSISTANT PROFESSOR [address] [place] [address] Commercial [facility] 04/11/24 Instantizer Operator Relationship Specialty Start Date End Date Yoseph Fall MD [address] [place] [address] PCP - General 04/17/09 Nelson Robert, CUSTOMS INVESTIGATOR.RESEARCH ASSISTANT PROFESSOR [address] [place] [address] [facility] 04/11/24 Instantizer Operator Relationship Specialty Start Date End Date Yoseph Fall MD [address] [place] [address] PCP - General 04/17/09 Nelson Robert, CUSTOMS INVESTIGATOR.RESEARCH ASSISTANT PROFESSOR [address] [place], [place] [address] Commercial Art Instructor [facility] 04/11/24 Instantizer Operator Relationship Specialty Start Date End Date Yoseph Fall MD [address] [place], [place] [address]50[address] PCP - General 04/17/09 Nelson Robert, CUSTOMS INVESTIGATOR.RESEARCH ASSISTANT PROFESSOR [address] [place], [place] [address] Commercial Art Instructor [facility] 04/11/24 Instantizer Operator Relationship Specialty Start Date End Date Yoseph Fall MD [address] [place], [place] [address]394[address] PCP - General 04/17/09 Nelson Robert, CUSTOMS INVESTIGATOR.RESEARCH ASSISTANT PROFESSOR [address] [place], [place] [address] Commercial Art Instructor [facility] 04/11/24 Team Status: Active Member Role/Relationship Status [...] Provider Active Start: October 09, 2024 Dr. Alsesandro Palma MD Other Provider Active Sta rt: [...] November 03, 2024 End: November 03, 2024 Instantizer Operator Relationship Specialty Start Date End Date Yoseph Fall MD [address] [place], [place] [address] PCP - General 04/17/09 Nelson Robert, [place].RESEARCH ASSISTANT PROFESSOR [address] [place], [place] [address] Commercial Art Instructor [facility] 04/11/24 Instantizer Operator Relationship Specialty Start Date End Date Yoseph Fall MD [address] [place] [address] PCP - General 04/17/09 Nelson Robert, CUSTOMS INVESTIGATOR.RESEARCH ASSISTANT PROFESSOR [address] [place] [address] Commercial Art [facility] 04/11/24 Instantizer Operator Relationship Specialty Start Date End Date Yoseph Fall MD [address] [place] [address] PCP - General 04/17/09 Nelson Robert, CUSTOMS INVESTIGATOR.RESEARCH ASSISTANT PROFESSOR [address] [place] [address] Commercial [facility] 04/11/24 Instantizer Operator Relationship Specialty Start Date End Date Yoseph Fall MD [address] [place] [address] PCP - General 04/17/09 Nelson Robert, CUSTOMS INVESTIGATOR.RESEARCH ASSISTANT PROFESSOR [address] [place] [address] Commercial [facility]Kit [facility] 04/11/24 Richard Broussard, RN Specialty Bee Worker [facility] 11/24/24 Gregor Fernandez, CUSTOMS INVESTIGATOR.RESEARCH ASSISTANT PROFESSOR [address] [place] [address] Palliative Medicine Home Provider [facility] 11/24/24 Instantizer Operator Relationship Specialty Start Date End Date Yoseph Fall MD [address] [place] [address] PCP - General 04/17/09 Nelson Robert CUSTOMS INVESTIGATOR.RESEARCH ASSISTANT PROFESSOR [address] [place] [address] Commercial Art Instructor Family Medicine 04/11/24 Richard Broussard, RN Specialty Bee Worker [facility] 11/24/24 Grgeor Fernandez, CUSTOMS INVESTIGATOR.RESEARCH ASSISTANT PROFESSOR [address] [place], [place] [id number] Palliative Medicine Home Provider Hospice & Palliative Medicine 11/24/24 Instantizer Operator Relationship Specialty Start Date End Date Yoseph Fall MD [address] [place] [address] PCP - General 04/17/09 Nelson Robert, CUSTOMS INVESTIGATOR.RESEARCH ASSISTANT PROFESSOR [address] [place] [address] Commercial Art Instructor Family Medicine 04/11/24 Richard Broussard, KAREN Specialty Bee Worker Hospice & Palliative Medicine 11/24/24 Gregor Fernandez, CUSTOMS INVESTIGATOR.RESEARCH ASSISTANT PROFESSOR [address] [place], [place] [phone] Palliative Medicine Home Provider Hospice & Palliative Medicine 11/24/24 Instantizer Operator Relationship Specialty Start Date End Date Yoseph Fall MD [address] [place] [address] PCP - General 04/17/09 Nelson Robert CUSTOMS INVESTIGATOR.RESEARCH ASSISTANT PROFESSOR [address] [place] [address] Commercial Art Instructor Family Medicine 04/11/24 Richard Broussard, RN Specialty Bee Worker Hospice & Palliative Medicine 11/24/24 Gregor Fernandez APRN.RESEARCH ASSISTANT PROFESSOR [address] [place], [place] [phone] Palliative Medicine Home Provider Hospice & Palliative Medicine 11/24/24 Instantizer Operator Relationship Specialty Start Date End Date Yoseph Fall MD [address] [place] [address] PCP - General 04/17/09 Nelson Robert CUSTOMS INVESTIGATOR.RESEARCH ASSISTANT PROFESSOR [address] [place] [address] Commercial Art Instructor [facility] 04/11/24 Richard Broussard RN Specialty Bee Worker Hospice & Palliative Medicine 11/24/24 Gregor Fernandez, CUSTOMS INVESTIGATOR.RESEARCH ASSISTANT PROFESSOR [address] [place], [place] [phone] Palliative Medicine Home Provider Hospice & Palliative Medicine 11/24/24 Instantizer Operator Relationship Specialty Start Date End Date Yoseph Fall MD [address] [place] [address] PCP - General 04/17/09 Nelson Robert, CUSTOMS INVESTIGATOR.RESEARCH ASSISTANT PROFESSOR [address] [place] [address] Commercial Art Instructor Family [facility] 04/11/24 Richard Broussard, KAREN Specialty Bee Worker Hospice & Palliative Medicine 11/24/24 Gregor Fernandez, CUSTOMS INVESTIGATOR.RESEARCH ASSISTANT PROFESSOR [address] [place] [address] [id number] Palliative Medicine Home Provider Hospice & Palliative Medicine 11/24/24 Instantizer Operator Relationship Specialty Start Date End Date Yoseph Fall MD [address] [place] [address] PCP - General 04/17/09 Nelson Robert, CUSTOMS INVESTIGATOR.RESEARCH ASSISTANT PROFESSOR [address] [place], [place] [address] Commercial Art Instructor Family Medicine 04/11/24 Richard Broussard, RN Specialty Bee Worker Hospice & Palliative Medicine 11/24/24 Gregor Fernandez, ABRAHAM.RESEARCH ASSISTANT PROFESSOR [address] [place] [id number] Palliative Medicine Home Provider Hospice & [...] Michelle Mendoza MD [address] [place] [address] Respiratory [place] [address] [place] [address] Referral ID Status Reason Start Date Expiration Date V isits Requested Visits Authorized [id number] Closed Auto-Generate d Referral 01/13/2022 02/12/2023 1 [...] Comments Medication Problem Patient Update Reason Comments [facility] patient update Reason Onset Date Comments Transition Of Care 10/10/2024 Reason Onset Date Comments Refill Request 10/11/2024 Reason Comments PT Delay in Care Order Reason Onset Date Comments Refill Request 10/12/2024 Reason Comments Hospital F/U [facility] Reason Comments Orders Occupation Therapy Plan of care Consu lt Physical Therapy Plan of Care Reason Comments Patient Update Reason Comments [facility] med- [id number] Initial Consult Reason Comments Home Care Management [...] laterality Procedures CONSULT TO PALLIATIVE CARE OFFICE/OUTPATIENT [facility] 60 MINUTES Yoseph Fall MD [address] [place] [address] Phone: tel: fax: Referral ID Status Reason Start Date Expiration Date V isits Requested Visits Authorized [id number] Closed PCP Requested Referral 10/20/2024 10/20/2025 1 1 Reason Comments Patient Request Patient Update Specialty Diagnoses / Procedures Referred By Contac t Referred To Contact Hospice & Palliative Medicine Diagnoses Stage 3 severe COPD by GOLD classification (HCC) Chronic low back pain with sciatica, sciatica laterality unspecified, unspecified back pain laterality Procedures CONSULT TO PALLIATIVE CARE OFFICE/OUTPATIENT [facility] 60 MINUTES Yoseph Fall MD [address] [place] [address] Phone: tel: fax: Referral ID Status Reason Start Date Expiration Date V isits Requested Visits Authorized [id number] Closed PCP Requested Referral 10/23/2024 10/23/2025 1 1 Reason Comments Symptom Management Reason Onset Date Comments Refill Request 11/23/2024 Reason Comments Care Coordination Reason Comments [place] Nursing Call Reason Onset Date Comments Refill Request 12/08/2024 Reason Comments Cardiac Valve Problem New Patient [facility] Reason Onset Date Comments Refill Request 12/19/2024 Goals (unrecognized section and content) Goals may be documented in a n alternate sectionGoals may be documented in an alternate section INFORMATION SOURCE (unrecogn ized section and content) DATE CREATED AUTHOR 11/04/2024 [facility] DATE CREATED AUTHOR AUTHOR'S ORGANIZ ATION 12/20/2024 [facility] DATE CREATED AUTHOR AUTHOR'S ORGANIZ ATION 12/24/[address] [facility] FOR RECORDS PERTAINING TO PATIENTS WHO [...] BE BASED ON THE PRIMARY CLINICAL RECORDS. [facility] [employer] [facility]. provides no warranty or guarantee of the accuracy or completeness of information in this document.
[2024-12-27] VITALS (11 sets, daily range): BP systolic 120–148; BP diastolic 65–70; PULSE 92–108; RESP 12–22; TEMP 36.3–37.1; O2SAT 93–98; BMI 26.7; BMI 26.9
--- NOTE | 2024-12-27 00:33 | CPS ---
Pt refused I.S. but wanted to use the PEP. The Incentive is difficult for pt especially since she's short of breath much of the time.
--- NOTE | 2024-12-27 00:41 | CPS ---
Discussed option of bipap to pt per doctor order, pt stated she could not tolerate that but will revisit the idea should the need arise.
[2024-12-27 02:14] LABS: Hematocrit 29.0 % (37-47); Hemoglobin 9.3 g/dL (12.0-15.0)
[2024-12-27] MEDS: 0.9% Saline Lock 10 ML Syringe IV ×3 (06:00→21:40)
[2024-12-27 06:20] LABS: Hematocrit 26.3 % (37-47); Hemoglobin 8.5 g/dL (12.0-15.0); Immature Granulocytes Count 0.070 X10^3/uL (0.0-0.0); Mean Corp Hgb Conc 32.3 g/dL (32-36); Mean Corpuscular Volume 83.8 fL (81-99); Mean Platelet Vol. 10.0 fl (6.2-12.0); NRBC Flagged by Analyzer 0 % (0-5); POSITIVE DIFFERENTIAL YES; Platelet Count 188 K/mm3 (150-450); RBC Distribution Width CV 14.2 % (11.6-14.6); RBC Distribution Width SD 42.8 fl (35.1-43.9); Red Blood Count 3.14 M/mm3 (4.2-5.4); White Blood Count 5.4 K/mm3 (4.4-11.0)
[2024-12-27 07:59] LABS: AST(SGOT) 20 U/L (<=31); Alanine Aminotransfer ALT/SGPT 20 U/L (<=34); Albumin, Serum 3.8 g/dL (3.4-4.8); Alkaline Phosphatase 46 U/L (35-104); Anion Gap 9 (5-15); BUN 18 mg/dL (4-19); BUN/Creat Ratio 29.6 RATIO (10-20); Calcium,Total 8.9 mg/dL (7.6-11.0); Carbon Dioxide 39.4 mmol/L (21.0-32.0); Chloride 92 mmol/L (98-108); Estimated Creatinine Clearance 64.18 ml/min (50-250); Globulin 2.1 g/dL (2.2-4.2); Glucose 151 mg/dL (70-99)
[2024-12-27 08:35] LABS: Potassium 3.0 mmol/L (3.3-5.1)
[2024-12-27] MEDS: Verapamil SR 180 MG CAPSULE PO ×2 (10:20→21:41)
[2024-12-27] MEDS: Fluticasone 0.05% 1 SPRAY NASAL.SRY NASAL (10:21)
[2024-12-27] MEDS: guaiFENesin 10 ML UDC (200MG/10ML) PO ×2 (10:28→18:06)
[2024-12-27] MEDS: HYDROcodone Bitartrate/Apap 5/325 Tablet PO ×2 (10:28→21:40)
[2024-12-27 11:34] LABS: Ferritin 35 ng/mL (22-378); Iron 17 ug/dL (50-170); Iron Binding Capacity,Total 305 ug/dL (250-450); Iron Binding Capacity,Unsat 288 ug/dL (228-428)
--- NOTE | 2024-12-27 12:20 | CASEMGMT ---
Addendum entered by Kumar Lora 12/27/24 16:48: KAREN VARGAS spoke w/sig other, Mike. He states pt has an appt 01/05 @ [facility] for a heart cath d/t valvular heart disease. Mike states they have plenty of portable O2 tanks @ pt's home for pt to use to go to that appt and he states is aware of how to contact [employer] to get more tanks, if needed in the future. Addendum entered by Kumar Lora 12/27/24 16:35: Pt made aware [facility] able to accept her. She voices appreciation. Addendum entered by Kumar Lora 12/27/24 15:13: Per [employer], pt has a concentrator. She also states pt picked up 2 E-tanks in June and states if pt is wearing o2 @ 2 l/m it should last ~5 hours and if she is wearing O2 @ 3 l/m, it should last ~ 3 hrs. She states pt also has M6 (mini tanks) but those have not been picked up since 03-11-2022. Addendum entered by Kumar Lora 12/27/24 14:43: 1350: Per Edda @ [facility], they can accept pt. If pt discharges tomorrow, SOC would be Wednesday. If she discharges Wednesday or over the weekend, SOC would be Wednesday. Addendum entered by Kumar Lora 12/27/24 14:42: HCPOA and LW are not on file @ [facility]. Pt is aware. She states she has filled out paperwork @ her home for HCPOA and Living Will but it has not been notarized yet, stating she has a friend that does notary and comes to her home. She declines wanting [facility] to assist her w/completing these documents. Original Note: RN [facility] partner CM to room to meet with patient for initial transition planning/care coordination assessment. KAREN VARGAS introduced self and role at [facility], pt voices understanding. Pt is A & O at this time, resting in bed in no distress. Pt's SO, Mike, at bedside. Care providers, pharmacy, and demographics verified. Strata: 2 PCP: Dr Arnulfo Fall Specialists: [facility]/Cardiology, Dr Kev Shea-visual basic programmer @ [facility]. [facility]erred [facility]: [facility] [employer] [facility]: Yes LNOK: Mike (Sig-other), Nathaniel (Son) Living Arrangements: Pt lives with her sig other, Mike, in a 1st-floor apartment of a house with a basement and 2 steps to enter w/brick pillars on both sides. Pt has some difficulty on the stairs d/t gets SOB easily. Mike assists pt in the home as needed. Mike gets most groceries and SAMEERA will pick things up when needed as well. Pt manages her own medications. Mike states pt rarely leaves her home d/t SOB and anxiety and often does virtual doctor visits. Passport Services: Pt is active w/[employer] and has Palma VARGAS. Pt has aide services M-F for 8 hrs a day through [facility]. Pt's SAMEERA works for [employer] and is pt's aide. She assists pt w/ADL's & IADL's Palma notified of pt's admission to [facility]. Palma asks for dc instructions be faxed to [phone] @ discharge. Transportation: Pt does not drive. Mike drives but states that the pt rarely leaves the home except for doctor's appointments. Mike states he is scheduled for a colonoscopy tomorrow in [place] and would not be able to drive pt home if she is discharged tomorrow. He states, though, he may either be cancelling his appt or pt's brother may be able to take pt home, if needed. DME: Home O2 through [employer] in [place]. Pt states she has been wearing the O2 @ 3 L/M, but per [employer], pt's current home O2 order is 2L continuous via [place]. Pt has a concentrator, portable tanks (SO states he can bring in at [place]), pulse ox, and nebulizer. Pt also has a medical alert system, WC, BP Machine, shower chair, grab bars, WW, and lift chair. HHC/SNF: Pt has had [facility] HHC in the past. No hx of SNF. Discussed discharge planning. Pt wishes to discharge home and would like [facility]. She declines wanting list of other [facility] agencies unless [facility] unable to accept her. Call placed to Edda @ [facility] and referral made. Palliative: Discussed palliative care w/pt. She states someone came to talk w/her about this but states, They needed something else 1st but she could not recall what was still needed. She is interested in a palliative referral. Plan: Home w/HHC. Follow for any increase in home O2 needs. Satya OROURKEN RN CM
[2024-12-27] MEDS: Albuterol 2.5 MG/3 ML VIAL.NEB. INHALATION (12:45)
--- NOTE | 2024-12-27 14:08 | PCM.CONS.P ---
[facility] Medical History Afib Aortic valve stenosis RLS (restless legs syndrome) History of ETOH abuse Chronic hypoxic respiratory failure, on home oxygen therapy COPD (chronic obstructive pulmonary disease) Anxiety Depression Smoker Asthma Hypertension Migraines Home Medications ?Medication ?Instructions ?Recorded ?Last Taken ?Type albuterol sulfate 90 mcg/actuation 1 - 2 puff inhalation Q4H PRN PRN 04/18/13 09/23/14 History aerosol inhaler (Ventolin HFA) Bronchodialation cyclobenzaprine 10 mg tablet 10 mg PO Q12H pain 04/18/13 09/23/14 History 10 MG fluticasone propionate 50 1 spray intranasal DAILY nasal 04/18/13 09/23/14 History mcg/actuation nasal congestion spray,suspension montelukast 10 mg tablet 10 mg PO DAILY allergies 04/18/13 09/23/14 History 10 MG omeprazole 20 mg capsule,delayed 20 mg PO DAILY heart burn 04/18/13 09/23/14 History release 20 MG tiotropium bromide 18 mcg capsule 1 puff inhalation DAILY wheezing 04/18/13 09/23/14 History with inhalation device (Spiriva with HandiHaler) Oxygen, Home [Home Oxygen] 2.5 lpm PRN PRN Dyspnea 10/22/13 09/23/14 History sertraline 100 mg tablet 100 mg PO BID mood 10/22/13 09/23/14 History fluticasone 500 mcg-salmeterol 50 1 puff inhalation BID shortness of 10/26/13 09/23/14 Rx mcg/dose blistr powdr for breath ##1 inhalation (Advair Diskus) Ropinirole Hcl 0.25 mg PO QHS restless legs 09/23/14 Unknown History prednisone 10 mg tablet 15 mg PO QODAY PRN FLARE UPS 04/03/15 Unknown History ipratropium 0.5 mg-albuterol 3 mg 3 ml inhalation Q4HWA.RT wheezing 05/13/16 Unknown Rx (2.5 mg base)/3 mL nebulization ##30 soln lorazepam 0.5 mg tablet 0.5 mg PO QHS anxiety #7 tabs 05/05/20 Unknown Rx nicotine (polacrilex) 2 mg gum 2 mg buccal Q2H to stop smoking 07/22/23 Unknown Rx (Nicorette) #20 ea cholecalciferol (vitamin D3) 50 50 mcg PO DAILY vitamin 10/18/23 Unknown History mcg (2,000 unit) capsule (Vitamin D3) ipratropium 0.5 mg-albuterol 3 mg 3 ml inhalation Q6H PRN shortness 10/18/23 Unknown Rx (2.5 mg base)/3 mL nebulization of breath or wheezing #180 mL soln buspirone 10 mg tablet 10 mg PO BID anxiety 10/02/24 Unknown History hydrocodone-acetaminophen 5-325mg 1 tab PO BID PRN PRN pain 10/03/24 Unknown History 5mg-325mg nicotine 14 mg/24 hr daily 14 mg transdermal DAILY prn #28 ea 10/09/24 Unknown Rx transdermal patch apixaban 5 mg tablet (Eliquis) 5 mg PO BID blood thinne #60 tabs 11/03/24 Unknown Rx carvedilol 6.25 mg tablet 6.25 mg PO BID bp #60 tabs 11/03/24 Unknown Rx furosemide 20 mg tablet 20 mg PO DAILY fluid overload 12/27/24 Unknown History simethicone 250 mg capsule (Gas-X) 250 mg PO BID gas 12/27/24 Unknown History Allergy/AdvReac Type Severity Reaction Status Date / Time No Known Allergies Allergy Verified 12/26/24 13:56 Family History Mother Hypertension Throat cancer Father Hypertension Stomach cancer Surgical History H/O exploratory laparotomy History of lung surgery History of cholecystectomy Social History household members: significant other and none housing: apartment Smoking Status: Former smoker alcohol intake: former substance use type: does not use Homelessness:: Sheltered Prior Cardiac Testing/Procedures Prior Cardiac Testing/Procedures: Echocardiogram (from September showed EF of 70% and a grade 1 diastolic dysfunction with severe aortic calcification and stenosis.) ROS ROS Narrative Shortness of breath Constitutional Constitutional: Reports fatigue Eyes Eyes: Reports systems reviewed and no addt'l complaints, except as documented ENT HEENT: Reports systems reviewed and no addt'l complaints, except as documented Cardiovascular Cardiovascular: Reports other Details: Chest tightness Respiratory/Chest Respiratory/Chest: Reports change in phlegm color, chest congestion, chest tightness, dyspnea, dyspnea on exertion, portable oxygen @ home, shortness of breath at rest and shortness of breath with exertion Gastrointestinal Gastrointestinal: Reports systems reviewed and no addt'l complaints, except as documented Genitourinary Genitourinary: Reports systems reviewed and no addt'l complaints, except as documented Musculoskeletal Musculoskeletal: Reports systems reviewed and no addt'l complaints, except as documented Integumentary Integumentary: Reports systems reviewed and no addt'l complaints, except as documented Neurologic Neurologic: Reports systems reviewed and no addt'l complaints, except as documented Psychiatric Psychiatric: Reports anxiety and depression Endocrine Endocrinology: Reports systems reviewed and no addt'l complaints, except as documented Hematologic/Lymphatic Hematologic/Lymphatic: Reports systems reviewed and no addt'l complaints, except as documented Allergic/Immunologic Allergic/Immunologic: Reports systems reviewed and no addt'l complaints, except as documented Physical Exam Const alert and oriented x3 Constitutional Narrative: Extremely anxious General Appearance: cooperative HEENT normocephalic Mouth: dry mucous membranes Eyes PERRL Resp Effort and Inspection: tachypneic and uses accessory muscles Auscultation: crackles, rhonchi, wheezes and diminished lung sounds Cardio regular rate GI normal to inspection, nondistended, normoactive bowel sounds Skin no rashes or lesions noted Neuro CN's II-XII intact bilaterally Speech: speech normal Psych Psych Narrative: Patient becomes extremely anxious when talking about uncomfortable topics. Mood & Affect: depressed and anxious Charges/Coding Palliative Care Palliative Care: 53090 New Pt Consult 80+ min HPI Current admission Current Code Status: Full Code, patient became extremely anxious when speaking about CODE STATUS. Associated Diagnosis: COPD exacerbation, severe aortic stenosis and calcification, normocytic anemia Consult Data Date of Consult: 12/27/24 Location of consult: PCU Reason for referral: goals of care and code status Referral source: [facility] Palliative care diagnosis (Summary list): COPD exacerbation Palliative care services/treatment (Accepted, as consult): accepted Case discussed with referring provider: Anxiety management. HPI Narrative HPI Narrative: 12/27/24: Prior to meeting with the patient at bedside I reviewed documentation, labs, and radiological studies also documentation from previous visits in September. I then met with the patient, Ting at bedside. She was sitting on the edge of the bed. Audible coarse crackles noted with cough. I introduced myself and the concept of palliative care which she voluntarily excepted our services. Ting states that she received outpatient palliative care services previously but was told that they could not help her because she was requiring pain management. At this time, I do feel that the patient would benefit from palliative care from an outpatient standpoint as she does have severe anxiety which is keeping her from having any quality of life and keeps her in her home as well as shortness of breath. Patient states that the majority of her anxiety can be attributed to her fear of running out of oxygen. She states that she only has a small tank for when she goes out of the home and that she is fearful that she will run out of oxygen. She does not have a condenser at home and only has 1 tank at home. I do feel that the patient would benefit from a condenser to help relieve her anxiety for running out of oxygen. She does state that her primary care provider has significantly reduced her pain medications at home in which she previously was receiving 120 tablets/month and that she is now down to 60. Her primary care provider did take her off of her Xanax and now has her on Zoloft twice a day and BuSpar 4 times per day. She does not feel that this combination is working for her. Patient did become extremely anxious while talking about her medications and her breathing. It was recommended that she utilize BiPAP while in the hospital and she initially stated that she did not want to use it. She did utilize it overnight and states that it did help her. She is open to utilizing BiPAP at home. Patient states that her quality of life at home has significant significantly decreased recently. She states that she loves to fish and would like to spend time with her family at events but she is too fearful to leave her house for fear of running out of oxygen. Patient does have a significant other, Mike, who was able to help her at home she also has a neighbor who comes down to help her as well. I do feel that Ting would benefit from outpatient palliative care services in which she is open to, for anxiety and shortness of breath. She does understand that palliative care will not be able to assist her with pain management and that would be provided by her primary care provider. Patient did endorse being a full code and states understanding of the benefits versus burdens of CPR and intubation. I also discussed the possibility of hospice in which she then also became anxious and stated that she was not ready to talk about that quite yet. All questions were answered. Palliative care will continue to follow for goals of care conversations as clinical picture evolves. HPI:The patient is a 69 y/o F w/ PMHx: Valvular Heart Disease, GERD, RLS, Anxiety and Depression, Former tobacco use, Former EtOH Abuse, Hx Non-small cell lung cancer status post right lung lobectomy remotely 2003, COPD/Asthma with Chronic Hypoxic Respiratory Failure (2L NC) with allergic rhinitis, HTN who presents to the [facility] ED on 12/26/2024 with history of 3 to 4 days of progressively worsening fatigue, malaise, dyspnea with chest tightness and wheezing coupled unfortunately with significant panic attacks whenever she has been attempting to leave the house with a productive cough specifically of yellow sputum prompting ED evaluation be cautious. She does report that she is supposed to have a heart cath at [facility] in the next several weeks because of valvular heart disease for evaluation. Patient reports that her stools she believes have been normal in appearance. He does describe ongoing constant tightness with her dyspnea in the chest but no specific stabbing pain or significant pressure or pleuritic discomfort. Workup in the ED included T98.7, heart 100, BP 140/66, respiratory rate 20, 97% on 3 L normally per record on chronic 2 L nasal cannula supplementation with most recent repeat vitals heart rate 100, BP 128/75, respiratory rate 18, 98% on 3 L nasal cannula, CBC with WC 9.6, hgb 9.2, MCV 84.5, platelet 218 with left shift, BMP with chloride 88, carbon oxide 41.6, BUN/creatinine 16/0.64, GFR 96, glucose 112, initial troponin 25 with repeat delta 25, chest x-ray with surgical clips overlying the upper mediastinum and right paratracheal region with some local volume loss and linear scarring as well as COPD type changes with no acute cardiopulmonary findings, EKG with SR with nonspecific changes with no acute evidence of ischemia. In the ED patient ministered albuterol treatment x 3 and DuoNeb therapy x 1 in addition to Xanax 0.25 mg p.o. x 1, doxycycline 100 mg p.o. x 1 and Solu-Medrol 125 mg IV x 1. Palliative Assessment Advanced Directive - Current Admission Advance Directive: Advance Directive ON ADMISSION - REFERENCE Do you have a Healthcare No 12/26/24 21:29 Living Will? Do you have a Healthcare Power No 12/26/24 21:29 of [employer]? Do You Want Additional Declined 12/26/24 21:29 Information on Advanced Directives or Healthcare Proxy/DPOA comments: Patient states that her POA would be her significant other Mike. She is in the process of having that paperwork notarized. Psychosocial/Spiritual Information Living situation/Marital status: Patient states that she lives independently with her significant other providing assistance as well as her neighbor. Geographic location: [place] Supports: Family and friends Alevism/Oneida or spiritual preference: No stated pentecostalism but states that she is spiritual Spiritual distress: Denies Prior functional status: Patient utilizes a wheelchair when she is in public but utilizes no assistive devices while she is at home. She is able to do her own ADLs. Assistive devices at home: Wheelchair outpatient none at home Cultrual issues: Denies Information about the patient as a person: Patient states that she used to be an outdoor person until she got worse with her COPD. She would like to be able to go fishing again with her grandchild. Symptoms Palliative performance scale: 50 Palliative prognostic index: 6.0(if PPI is greater than 6.0, survival is less than 3 weeks) Dyspnea symptoms: Severe Constipation symptoms: None Nausea symptoms: None Vomiting symptoms: None Depression symptoms: Moderate Anorexia symptoms: None Cough symptoms: Severe Insomnia symptoms: None Diarrhea symptoms: None Fatigue symptoms: Moderate Weakness symptoms: Mild Confusion symptoms: None Objective Data Objective Data Anemia noted with a hemoglobin 8.5 hematocrit 26.3. Immature granulocyte elevated at 1.3. Vital Signs: Vital Signs Temp Pulse Resp BP Pulse Ox O2 Del Method O2 Flow Rate 98.3 F 101 H 18 131/70 H 96 Nasal Cannula 3 12/27/24 10:15 12/27/24 12:46 12/27/24 12:46 12/27/24 10:15 12/27/24 10:15 12/27/24 10:15 12/27/24 10:15 Oxygen Flow Rate (L/min) 3 Oxygen Delivery Method Nasal Cannula Weight: 156 lb 11.979 oz Body Mass Index (BMI) 26.7 Intake & Output: Intake and Output for Last 24 Hours 12/25/24 12/26/24 12/27/24 23:59 23:59 23:59 Intake Total 120 / 120 Output Total 400 / 400 Balance 120 / 120 -400 / -400 Lab / Micro Data Attestation: I reviewed the patient's lab results. 12/27/24 05:50 12/27/24 05:50 Labs: Laboratory Results - last 24 hr 12/26/24 16:20: WBC 9.6, RBC 3.43 L, Hgb 9.2 L, Hct 29.0 L, MCV 84.5, MCH 26.8 L, MCHC 31.7 L, RDW Std Deviation 43.0, RDW Coeff of Augustin 14.0, Plt Count 219, MPV 9.3, Immature Gran % (Auto) 0.800, Neut % (Auto) 83.2 H, Lymph % (Auto) 11.3 L, [place] % (Auto) 4.5, Eos % (Auto) 0.1, Baso % (Auto) 0.1, Absolute Neuts (auto) 8.0 H, Absolute Lymphs (auto) 1.08, Nucleated RBC % 0, Sodium 137, Potassium 4.0, Chloride 88 L, Carbon Dioxide 41.6 H, Anion Gap 8, BUN 16, Creatinine 0.64 L, Estim Creat Clear Calc 65.40, Est GFR (MDRD) Non-Af 96, BUN/Creatinine Ratio 25.1 H, Glucose 112 H, Calcium 8.9, Troponin T High Sens 25 H D 12/26/24 17:57: Magnesium 1.9, Iron 25 L, TIBC 313, Iron Saturation 8.0 L, Unsaturated IBC 288, Ferritin 22, Troponin T Hi Sens 2 Hr 25 H 12/26/24 20:36: Troponin T Hi Sens 4Hr 26 H, Procalcitonin 0.04 12/26/24 22:13: Hgb 8.5 L, Hct 26.5 L 12/27/24 02:08: Hgb 9.3 L, Hct 29.0 L 12/27/24 05:50: WBC 5.4, RBC 3.14 L, Hgb 8.5 L, Hct 26.3 L, MCV 83.8, MCH 27.1, MCHC 32.3, RDW Std Deviation 42.8, RDW Coeff of Augustin 14.2, Plt Count 188, MPV 10.0, Immature Gran % (Auto) 1.300 H, Neut % (Auto) 88.7 H, Lymph % (Auto) 8.1 L, [place] % (Auto) 1.7, Eos % (Auto) 0.0, Baso % (Auto) 0.2, Absolute Neuts (auto) 4.8, Absolute Lymphs (auto) 0.44 L, Nucleated RBC % 0, Sodium 140, Potassium 3.0 L, Chloride 92 L, Carbon Dioxide 39.4 H, Anion Gap 9, BUN 18, Creatinine 0.61 L, Estim Creat Clear Calc 64.18, Est GFR (MDRD) Non-Af 97, BUN/Creatinine Ratio 29.6 H, Glucose 151 H, Calcium 8.9, Iron 17 L, TIBC 305, Iron Saturation 6.0 L, Unsaturated IBC 288, Ferritin 35, Total Bilirubin 0.31, AST 20, ALT 20, Alkaline Phosphatase 46, Total Protein 5.9, Albumin 3.8, Globulin 2.1 L, Albumin/Globulin Ratio 1.8 Micro: Microbiology 12/26/24 21:26 Sputum, Expectorated/Coughed Gram Stain - Final 12/26/24 21:26 Sputum, Expectorated/Coughed Respiratory Culture - Final 12/26/24 20:48 Mucosa - Nasopharyngeal Respiratory Panel (PCR) - Final ABG Data ABG results: ABG 12/26/24 20:41 Specimen Type ART Sample Site L Radial pH 7.44 Bicarbonate Actual 55.5 H Total CO2 > 50 Base Excess > 30 H O2 Saturation 98 O2 % 2.0 ABG pCO2 81.2 H* ABG pO2 106 H Issa Test Positive O2 Delivery Device Cannula Vent Mode Not entered Crit Call To/Read Back Yes Blood Gas Notified Whom White Blood Gas Notified Time 20:42:58 Attestation: I personally reviewed and interpreted this ABG as follows: Radiography Diagnostic Testing: Radiology Impression Chest X-Ray 12/26/24 15:28 IMPRESSION: Posttreatment changes. No acute abnormality. No significant change [id number] Rhythm Strip Rhythm Strip: Sinus Rhythm Rate: 99 Ectopy: None Social Homelessness:: Sheltered Impressions & Recommendations Patient & Family Issues discussed with the patient and family: CODE STATUS and goals of care Patient goal: Patient would like outpatient palliative services to assist with anxiety and dyspnea management Family goal: No family available Ethical & Legal Ethical and legal: Patient plans to have POA paperwork signed and notarized when she gets out of the hospital Impressions Impressions: Patient is extremely anxious related to her abilities to utilize oxygen outside of her home. I do feel that the patient may be more able to have better quality of life if she is able to leave her home. Recommentation Palliative recommendations: I do recommend that the patient receives outpatient palliative. Encouter Achieved as a result of this Palliative Care Encounter: [ [id number]] minutes were spent in total for this visit which consisted, primarily of counseling and education dealing with the complex and emotionally intense issues of symptom management and palliative care in the setting of serious and potentially life-threatening illness. Review of documentation, labs and radiological studies. ?Patient/family had the opportunity to ask questions Plan (1) Acute respiratory insufficiency: PLAN: Medical management per primary team (2) COPD with acute exacerbation: PLAN: Medical management per primary team Recommend condenser for home (3) Respiratory insufficiency: PLAN: Medical management per primary team (4) Anxiety and depression: PLAN: Medical management per primary team (5) Anxiety: PLAN: Medical management per primary team Patient currently has Ativan 0.5 mg p.o. ordered at bedtime. Recommend consideration of twice daily (6) Palliative care encounter: PLAN: Recommend palliative care outpatient services for anxiety and dyspnea management Continued goals of care conversations as clinical picture evolves
[2024-12-27] MEDS: Nicotine (PBKC) 7 MG Patch TD (15:25)
[2024-12-27] MEDS: Potassium Chloride Oral Tablet 20 MEQ 40 MEQ PO (15:25)
--- NOTE | 2024-12-27 15:46 | PN_ITS ---
Subjective Subjective Patient seen and examined. She had no active complaints. She is being managed for acute COPD exacerbation. SHe admits to a dry cough, but denies any chest pain, palpitations, dizziness, nausea, vomiting or any other symptoms. Review of systems is otherwise negative. She is on 3L of oxygen, which is her baseline. Objective Data Objective Data Vital Signs: Vital Signs Temp Pulse Resp BP Pulse Ox O2 Del Method O2 Flow Rate 98.7 F 92 17 120/65 98 Nasal Cannula 3 12/27/24 15:27 12/27/24 15:27 12/27/24 15:27 12/27/24 15:27 12/27/24 15:27 12/27/24 15:27 12/27/24 15:27 Oxygen Flow Rate (L/min) 3 Oxygen Delivery Method Nasal Cannula Weight: 156 lb 11.979 oz Body Mass Index (BMI) 26.7 Intake & Output: Intake and Output for Last 24 Hours 12/25/24 12/26/24 12/27/24 23:59 23:59 23:59 Intake Total 120 / 120 500 / 500 Output Total 400 / 400 Balance 120 / 120 100 / 100 Lab / Micro Data 12/27/24 05:50 12/27/24 05:50 Labs: Laboratory Results - last 24 hr 12/26/24 16:20: WBC 9.6, RBC 3.43 L, Hgb 9.2 L, Hct 29.0 L, MCV 84.5, MCH 26.8 L , MCHC 31.7 L, RDW Std Deviation 43.0, RDW Coeff of Augustin 14.0, Plt Count 219, MPV 9.3, Immature Gran % (Auto) 0.800, Neut % (Auto) 83.2 H, Lymph % (Auto) 11.3 L, [place] % (Auto) 4.5, Eos % (Auto) 0.1, Baso % (Auto) 0.1, Absolute Neuts (auto) 8.0 H, Absolute Lymphs (auto) 1.08, Nucleated RBC % 0, Sodium 137, Potassium 4.0, Chloride 88 L, Carbon Dioxide 41.6 H, Anion Gap 8, BUN 16, Creatinine 0.64 L, Estim Creat Clear Calc 65.40, Est GFR (MDRD) Non-Af 96, BUN/Creatinine Ratio 25.1 H, Glucose 112 H, Calcium 8.9, Troponin T High Sens 25 H D 12/26/24 17:57: Magnesium 1.9, Iron 25 L, TIBC 313, Iron Saturation 8.0 L, Unsaturated IBC 288, Ferritin 22, Troponin T Hi Sens 2 Hr 25 H 12/26/24 20:36: Troponin T Hi Sens 4Hr 26 H, Procalcitonin 0.04 12/26/24 22:13: Hgb 8.5 L, Hct 26.5 L 12/27/24 02:08: Hgb 9.3 L, Hct 29.0 L 12/27/24 05:50: WBC 5.4, RBC 3.14 L, Hgb 8.5 L, Hct 26.3 L, MCV 83.8, MCH 27.1, MCHC 32.3, RDW Std Deviation 42.8, RDW Coeff of Augustin 14.2, Plt Count 188, MPV 10.0, Immature Gran % (Auto) 1.300 H, Neut % (Auto) 88.7 H, Lymph % (Auto) 8.1 L , [place] % (Auto) 1.7, Eos % (Auto) 0.0, Baso % (Auto) 0.2, Absolute Neuts (auto) 4.8, Absolute Lymphs (auto) 0.44 L, Nucleated RBC % 0, Sodium 140, Potassium 3.0 L, Chloride 92 L, Carbon Dioxide 39.4 H, Anion Gap 9, BUN 18, Creatinine 0.61 L, Estim Creat Clear Calc 64.18, Est GFR (MDRD) Non-Af 97, BUN/Creatinine Ratio 29.6 H, Glucose 151 H, Calcium 8.9, Iron 17 L, TIBC 305, Iron Saturation 6.0 L, Unsaturated IBC 288, Ferritin 35, Total Bilirubin 0.31, AST 20, ALT 20, Alkaline Phosphatase 46, Total Protein 5.9, Albumin 3.8, Globulin 2.1 L, Albumin/Globulin Ratio 1.8 Micro: Microbiology 12/26/24 21:26 Sputum, Expectorated/Coughed Gram Stain - Final 12/26/24 21:26 Sputum, Expectorated/Coughed Respiratory Culture - Final 12/26/24 20:48 Mucosa - Nasopharyngeal Respiratory Panel (PCR) - Final ABG Data ABG results: ABG 12/26/24 20:41 Specimen Type ART Sample Site L Radial pH 7.44 Bicarbonate Actual 55.5 H Total CO2 > 50 Base Excess > 30 H O2 Saturation 98 O2 % 2.0 ABG pCO2 81.2 H* ABG pO2 106 H Issa Test Positive O2 Delivery Device Cannula Vent Mode Not entered Crit Call To/Read Back Yes Blood Gas Notified Whom White Blood Gas Notified Time 20:42:58 Rhythm Strip Rhythm Strip: Sinus Rhythm Rate: 99 Ectopy: None Social Homelessness:: Sheltered Physical Exam Const alert, oriented x3 and no apparent distress General Appearance: cooperative HEENT normocephalic, head/scalp atraumatic, moist oral mucous membranes and oropharynx normal Eyes EOMs intact bilaterally Neck supple and no JVD Lymph Lymphatic: no lymphedema noted Resp Resp Narrative: mildly diminished breath sounds bibasally, no wheezes or crackles. On 3L of oxygen by nasal canula Cardio regular rate, regular rhythm, S1 normal heart sound, S2 normal heart sound and no murmurs GI normal to inspection, nondistended, normoactive bowel sounds, soft to palpation and non-tender Extremity normal capillary refill, no clubbing, cyanosis or edema and no calf tenderness General Extremity: no tenderness to palpation of joints or extremities Skin General Skin Exam: no breakdown Neuro CN's II-XII intact bilaterally and no focal motor deficits Motor Exam: general weakness Psych thought process normal and cooperative Appearance: appropriate Assessment & Plan Assessment/Plan (1) Acute respiratory insufficiency: (2) COPD with acute exacerbation: PLAN: Plan #Acute COPD exacerbation in the setting of chronic respiratory failure * On 3 L of oxygen which is her baseline. On breathing treatments bronchodilators. On IV Solu-Medrol. * Titrate oxygen as needed to be to saturation above 90%. Respiratory panel was negative. Currently on cefdinir. #Acute anemia: * Was started on Eliquis during most recent admission for A-fib. No globin is down to around 8. Stool for occult blood pending. * Iron panel showed evidence of iron deficiency anemia. Will consult gastroenterology. * I continue holding Eliquis * #Hypokalemia: Potassium is 3. Replace and trend.\ # History of non-small cell lung cancer: S/p right lung lobectomy. In remission. #Severe aortic valve stenosis: * 2D echo from 11/03/2024 showed severe concentric left ventricular hypertrophy with EF of 70% and stage I diastolic dysfunction. * To follow-up at [facility] as scheduled for evaluation for TAVR. * On Multaq, Coreg and verapamil. * #Hypertension: On Coreg and verapamil. IV hydralazine as needed #History of paroxysmal A-fib: On Coreg and Multaq. Eliquis held in light of anemia. #GERD: On PPI DVT prophylaxis: SCDs Charges/Coding Visit Charges Inpatient E&M: 76077 Subs Hosp L2
[2024-12-27] MEDS: Pramipexole Di-HCl 0.125 MG Tablet PO (21:42)
[2024-12-27] MEDS: Pantoprazole Sodium 40 MG in 0.9% Normal Saline (100mL MB+) 100 ML 300 MG IV (21:45)
[2024-12-28] VITALS (23 sets, daily range): BP systolic 90–151; BP diastolic 53–89; PULSE 88–145; RESP 16–26; TEMP 36.1–37.1; O2SAT 88–100; BMI 28.3
--- NOTE | 2024-12-28 02:20 | CPS ---
Patient refused PAP therapy for night time use.
--- NOTE | 2024-12-28 03:43 | CPS ---
Attempted PAP therapy for the night, however patient did not tolerate. RT tried adjusting PAP pressures for patient comfort. Patient ended up wanting to take it off after only a few minutes of use.
[2024-12-28 04:53] LABS: Hematocrit 26.4 % (37-47); Hemoglobin 8.5 g/dL (12.0-15.0); Immature Granulocytes Count 0.080 X10^3/uL (0.0-0.0); Mean Corp Hgb Conc 32.2 g/dL (32-36); Mean Corpuscular Volume 84.1 fL (81-99); Mean Platelet Vol. 9.4 fl (6.2-12.0); NRBC Flagged by Analyzer 0 % (0-5); POSITIVE DIFFERENTIAL YES; Platelet Count 203 K/mm3 (150-450); RBC Distribution Width CV 13.8 % (11.6-14.6); RBC Distribution Width SD 42.5 fl (35.1-43.9); Red Blood Count 3.14 M/mm3 (4.2-5.4); White Blood Count 10.6 K/mm3 (4.4-11.0)
[2024-12-28 05:22] LABS: Anion Gap 9 (5-15); BUN 23 mg/dL (4-19); BUN/Creat Ratio 39.3 RATIO (10-20); Calcium,Total 9.1 mg/dL (7.6-11.0); Carbon Dioxide 37.2 mmol/L (21.0-32.0); Chloride 93 mmol/L (98-108); Estimated Creatinine Clearance 64.18 ml/min (50-250); Glucose 132 mg/dL (70-99); Potassium 4.6 mmol/L (3.3-5.1)
[2024-12-28] MEDS: 0.9% Saline Lock 10 ML Syringe IV ×2 (06:29→13:19)
--- NOTE | 2024-12-28 09:15 | PCM.PN.PAL ---
Subjective Subjective 12/28/24: Prior to meeting with the patient at bedside I reviewed documentation and labs from overnight. I then met with the patient, Ting at bedside. She was sleeping upon entering my room and I did notice that while she was relaxed she breathes much easier. I did listen to her lungs while she was laying on her left side in which her lung sounds are diminished bilaterally with some fine crackles. Patient was then gently awakened by myself and OPERATIONS SUPPORT COORDINATOR to do her vitals. Patient states that she feels that she is breathing much easier today. We did have an extensive discussion about relaxation and how it affects her breathing. I did teach her deep breathing exercises and guided imagery to help her during times of extreme anxiety. She does state that her granddaughter is a source of calming for her and that she will concentrate on her during these times. She was able to repeat demonstration deep breathing exercises. We also discussed her sleep overnight which she states that she did sleep very well. She does receive Ativan 0.5 mg p.o. nightly which she states that she feels is helping her. I do recommend the possibility of increasing her Ativan to twice daily to assist with keeping her more calm during hospitalization. Patient would most likely benefit from a daily as needed of Ativan for panic attacks. I did note that patient's potassium has normalized today at 4.6 from 3.0 yesterday. Her BUN is slightly elevated at 23 from 18 yesterday creatinine is 0.59. Hemoglobin and hematocrit have remained stable from yesterday. Patient states that she continues to be interested in palliative care on outpatient basis. Case management updated. All questions answered. 12/27/24: Prior to meeting with the patient at bedside I reviewed documentation, labs, and radiological studies also documentation from previous visits in September. I then met with the patient, Ting at bedside. She was sitting on the edge of the bed. Audible coarse crackles noted with cough. I introduced myself and the concept of palliative care which she voluntarily excepted our services. iTng states that she received outpatient palliative care services previously but was told that they could not help her because she was requiring pain management. At this time, I do feel that the patient would benefit from palliative care from an outpatient standpoint as she does have severe anxiety which is keeping her from having any quality of life and keeps her in her home as well as shortness of breath. Patient states that the majority of her anxiety can be attributed to her fear of running out of oxygen. She states that she only has a small tank for when she goes out of the home and that she is fearful that she will run out of oxygen. She does not have a condenser at home and only has 1 tank at home. I do feel that the patient would benefit from a condenser to help relieve her anxiety for running out of oxygen. She does state that her primary care provider has significantly reduced her pain medications at home in which she previously was receiving 120 tablets/month and that she is now down to 60. Her primary care provider did take her off of her Xanax and now has her on Zoloft twice a day and BuSpar 4 times per day. She does not feel that this combination is working for her. Patient did become extremely anxious while talking about her medications and her breathing. It was recommended that she utilize BiPAP while in the hospital and she initially stated that she did not want to use it. She did utilize it overnight and states that it did help her. She is open to utilizing BiPAP at home. Patient states that her quality of life at home has significant significantly decreased recently. She states that she loves to fish and would like to spend time with her family at events but she is too fearful to leave her house for fear of running out of oxygen. Patient does have a significant other, Mike, who was able to help her at home she also has a neighbor who comes down to help her as well. I do feel that Ting would benefit from outpatient palliative care services in which she is open to, for anxiety and shortness of breath. She does understand that palliative care will not be able to assist her with pain management and that would be provided by her primary care provider. Patient did endorse being a full code and states understanding of the benefits versus burdens of CPR and intubation. I also discussed the possibility of hospice in which she then also became anxious and stated that she was not ready to talk about that quite yet. All questions were answered. Palliative care will continue to follow for goals of care conversations as clinical picture evolves. HPI:The patient is a 69 y/o F w/ PMHx: Valvular Heart Disease, GERD, RLS, Anxiety and Depression, Former tobacco use, Former EtOH Abuse, Hx Non-small cell lung cancer status post right lung lobectomy remotely 2003, COPD/Asthma with Chronic Hypoxic Respiratory Failure (2L NC) with allergic rhinitis, HTN who presents to the [facility] ED on 12/26/2024 with history of 3 to 4 days of progressively worsening fatigue, malaise, dyspnea with chest tightness and wheezing coupled unfortunately with significant panic attacks whenever she has been attempting to leave the house with a productive cough specifically of yellow sputum prompting ED evaluation be cautious. She does report that she is supposed to have a heart cath at [facility] in the next several weeks because of valvular heart disease for evaluation. Patient reports that her stools she believes have been normal in appearance. He does describe ongoing constant tightness with her dyspnea in the chest but no specific stabbing pain or significant pressure or pleuritic discomfort. Workup in the ED included T98.7, heart 100, BP 140/66, respiratory rate 20, 97% on 3 L normally per record on chronic 2 L nasal cannula supplementation with most recent repeat vitals heart rate 100, BP 128/75, respiratory rate 18, 98% on 3 L nasal cannula, CBC with WC 9.6, hgb 9.2, MCV 84.5, platelet 218 with left shift, BMP with chloride 88, carbon oxide 41.6, BUN/creatinine 16/0.64, GFR 96, glucose 112, initial troponin 25 with repeat delta 25, chest x-ray with surgical clips overlying the upper mediastinum and right paratracheal region with some local volume loss and linear scarring as well as COPD type changes with no acute cardiopulmonary findings, EKG with SR with nonspecific changes with no acute evidence of ischemia. In the ED patient ministered albuterol treatment x 3 and DuoNeb therapy x 1 in addition to Xanax 0.25 mg p.o. x 1, doxycycline 100 mg p.o. x 1 and Solu-Medrol 125 mg IV x 1. Objective Data Objective Data Vital Signs: Vital Signs Temp Pulse Resp BP Pulse Ox O2 Del Method O2 Flow Rate 97.7 F L 99 18 137/68 H 95 Nasal Cannula 3 12/28/24 06:35 12/28/24 06:35 12/28/24 06:35 12/28/24 06:35 12/28/24 06:35 12/28/24 06:35 12/28/24 06:35 FiO2 30 12/28/24 03:37 Oxygen Flow Rate (L/min) 3 Oxygen Delivery Method Nasal Cannula Weight: 164 lb 14.492 oz Body Mass Index (BMI) 28.3 Intake & Output: Intake and Output for Last 24 Hours 12/26/24 12/27/24 12/28/24 23:59 23:59 23:59 Intake Total 120 / 120 1300 / 1300 Output Total 400 / 400 Balance 120 / 120 900 / 900 Lab / Micro Data Attestation: I reviewed the patient's lab results. Lab results narrative: Patient's potassium has normalized. Hemoglobin and hematocrit remained stable from yesterday. Slightly elevated BUN from yesterday 23 12/28/24 04:39 12/28/24 04:39 Labs: Laboratory Results - last 24 hr 12/27/24 05:50: Iron 17 L, TIBC 305, Iron Saturation 6.0 L, Unsaturated IBC 288, Ferritin 35 12/28/24 04:39: WBC 10.6, RBC 3.14 L, Hgb 8.5 L, Hct 26.4 L, MCV 84.1, MCH 27.1, MCHC 32.2, RDW Std Deviation 42.5, RDW Coeff of Augustin 13.8, Plt Count 203, MPV 9.4, Immature Gran % (Auto) 0.800, Neut % (Auto) 90.6 H, Lymph % (Auto) 5.5 L, [place] % (Auto) 3.0, Eos % (Auto) 0.0, Baso % (Auto) 0.1, Absolute Neuts (auto) 9.6 H, Absolute Lymphs (auto) 0.58 L, Nucleated RBC % 0, Sodium 139, Potassium 4.6, Chloride 93 L, Carbon Dioxide 37.2 H, Anion Gap 9, BUN 23 H, Creatinine 0.59 L, Estim Creat Clear Calc 64.18, Est GFR (MDRD) Non-Af 97, BUN/Creatinine Ratio 39.3 H, Glucose 132 H, Calcium 9.1 Micro: Microbiology 12/26/24 21:26 Sputum, Expectorated/Coughed Gram Stain - Final 12/26/24 21:26 Sputum, Expectorated/Coughed Respiratory Culture - Final 12/26/24 20:48 Mucosa - Nasopharyngeal Respiratory Panel (PCR) - Final Rhythm Strip Rhythm Strip: Sinus Rhythm Rate: 99 Ectopy: None Social Homelessness:: Sheltered Physical Exam Const alert and oriented x3 General Appearance: cooperative Orientation / Consciousness: oriented to person, oriented to place and oriented to time Exam Limitations: no limitations HEENT normocephalic Eyes Eyes Narrative: Wears corrective lenses Neck full ROM Resp normal respiratory effort Effort and Inspection: able to speak in complete sentences Auscultation: wheezes and diminished lung sounds Cardio regular rate GI normal to inspection, nondistended, normoactive bowel sounds Auscultation: normoactive bowel sounds Back/Spine no CVA tenderness Extremity General Extremity: normal exam except as noted Skin no rashes or lesions noted Neuro oriented x3 Psych Appearance: appropriate Attitude: calm Charges/Coding Palliative Care Palliative Care: [id number] Follow up 35-49 min Consulation Summary Current admission Current Code Status: Full Code Associated Diagnosis: COPD exacerbation Consult Data Date of Consult: 12/27/24 Location of consult: PCU Reason for referral: goals of care and code status Referral source: Sienna Schafer Palliative care diagnosis (Summary list): COPD exacerbation Palliative care services/treatment (Accepted, as consult): accepted Case discussed with referring provider: increasing Ativan to PRN q day for breakthrough anxiety Palliative Assessment Advanced Directive - Current Admission Advance Directive: Advance Directive ON ADMISSION - REFERENCE Do you have a Healthcare No 12/26/24 21:29 Living Will? Do you have a Healthcare Power No 12/26/24 21:29 of Tractor Crane Operator? Do You Want Additional Declined 12/26/24 21:29 Information on Advanced Directives or Healthcare Proxy/DPOA comments: no formal DPOA states her grandson, Tim, would be her NOK that could be her POA for medical Symptoms Dyspnea symptoms: Moderate Constipation symptoms: None Nausea symptoms: None (none this morning ) Vomiting symptoms: None Depression symptoms: Moderate Anorexia symptoms: None (pt is NPO this morning for procedure ) Cough symptoms: Mild Insomnia symptoms: None Diarrhea symptoms: None Fatigue symptoms: Moderate Weakness symptoms: Moderate Confusion symptoms: None Impression & Recommendations Impressions Impressions: When patient is calm, I did note that the patient has improvement in her breathing. Recommentation Palliative recommendations: I do recommend that the patient receives outpatient palliative. Encouter Achieved as a result of this Palliative Care Encounter: [[id number] ] minutes were spent in total for this visit which consisted, primarily of counseling and education dealing with the complex and emotionally intense issues of symptom management and palliative care in the setting of serious and potentially life-threatening illness. Review of documentation, labs and radiological studies. ?Patient/family had the opportunity to ask questions Plan (1) Acute respiratory insufficiency: PLAN: Medical management per primary team (2) COPD with acute exacerbation: PLAN: Medical management per primary team (3) Acute anemia: PLAN: Medical management per primary team Patient is scheduled for scope today (4) Anxiety: PLAN: Recommend increasing Ativan to 1 dose as needed per day in addition to the patient's scheduled Ativan at night Taught deep breathing exercises and relaxation techniques. Teach back appropriate (5) Palliative care encounter: PLAN: Patient is agreeable to outpatient palliative care services.
[2024-12-28] MEDS: Lactated Ringers 1,000 ML 15 ML IV (10:52)
--- NOTE | 2024-12-28 11:16 | EX.PCM.CON.G ---
HPI Consult Data Date of Consult: 12/28/24 HPI Narrative Reason for Consultation: Anemia HPI Narrative: DENIA MARC, is a 69-year-old female presented to the ER with 3 to 4 days of productive cough with small amount of yellow sputum. She also admitted to increased dyspnea and chest tightness that wraps around to her back. She does suffer from severe COPD and anxiety. She also has a history of atrial fibrillation on Eliquis. I was asked to see her due to decreasing hemoglobin. [facility] Medical History Afib Aortic valve stenosis RLS (restless legs syndrome) History of ETOH abuse Chronic hypoxic respiratory failure, on home oxygen therapy COPD (chronic obstructive pulmonary disease) Anxiety Depression Smoker Asthma Hypertension Migraines Home Medications ?Medication ?Instructions ?Recorded ?Last Taken ?Type albuterol sulfate 90 mcg/actuation 1 - 2 puff inhalation Q4H PRN PRN 04/18/13 09/23/14 History aerosol inhaler (Ventolin HFA) Bronchodialation cyclobenzaprine 10 mg tablet 10 mg PO Q12H pain 04/18/13 09/23/14 History 10 MG fluticasone propionate 50 1 spray intranasal DAILY nasal 04/18/13 09/23/14 History mcg/actuation nasal congestion spray,suspension montelukast 10 mg tablet 10 mg PO DAILY allergies 04/18/13 09/23/14 History 10 MG omeprazole 20 mg capsule,delayed 20 mg PO DAILY heart burn 04/18/13 09/23/14 History release 20 MG tiotropium bromide 18 mcg capsule 1 puff inhalation DAILY wheezing 04/18/13 09/23/14 History with inhalation device (Spiriva with HandiHaler) Oxygen, Home [Home Oxygen] 2.5 lpm PRN PRN Dyspnea 10/22/13 09/23/14 History sertraline 100 mg tablet 100 mg PO BID mood 10/22/13 09/23/14 History fluticasone 500 mcg-salmeterol 50 1 puff inhalation BID shortness of 10/26/13 09/23/14 Rx mcg/dose blistr powdr for breath ##1 inhalation (Advair Diskus) Ropinirole Hcl 0.25 mg PO QHS restless legs 09/23/14 Unknown History prednisone 10 mg tablet 15 mg PO QODAY PRN FLARE UPS 04/03/15 Unknown History ipratropium 0.5 mg-albuterol 3 mg 3 ml inhalation Q4HWA.RT wheezing 05/13/16 Unknown Rx (2.5 mg base)/3 mL nebulization ##30 soln lorazepam 0.5 mg tablet 0.5 mg PO QHS anxiety #7 tabs 05/05/20 Unknown Rx nicotine (polacrilex) 2 mg gum 2 mg buccal Q2H to stop smoking 07/22/23 Unknown Rx (Nicorette) #20 ea cholecalciferol (vitamin D3) 50 50 mcg PO DAILY vitamin 10/18/23 Unknown History mcg (2,000 unit) capsule (Vitamin D3) ipratropium 0.5 mg-albuterol 3 mg 3 ml inhalation Q6H PRN shortness 10/18/23 Unknown Rx (2.5 mg base)/3 mL nebulization of breath or wheezing #180 mL soln buspirone 10 mg tablet 10 mg PO BID anxiety 10/02/24 Unknown History hydrocodone-acetaminophen 5-325mg 1 tab PO BID PRN PRN pain 10/03/24 Unknown History 5mg-325mg nicotine 14 mg/24 hr daily 14 mg transdermal DAILY prn #28 ea 10/09/24 Unknown Rx transdermal patch apixaban 5 mg tablet (Eliquis) 5 mg PO BID blood thinne #60 tabs 11/03/24 Unknown Rx carvedilol 6.25 mg tablet 6.25 mg PO BID bp #60 tabs 11/03/24 Unknown Rx furosemide 20 mg tablet 20 mg PO DAILY fluid overload 12/27/24 Unknown History simethicone 250 mg capsule (Gas-X) 250 mg PO BID gas 12/27/24 Unknown History Allergy/AdvReac Type Severity Reaction Status Date / Time No Known Allergies Allergy Verified 12/26/24 13:56 Family History Mother Hypertension Throat cancer Father Hypertension Stomach cancer Surgical History H/O exploratory laparotomy History of lung surgery History of cholecystectomy Social History household members: significant other and none housing: apartment Smoking Status: Former smoker alcohol intake: former substance use type: does not use Homelessness:: Sheltered Physical Exam Const alert, oriented x3, no apparent distress and healthy appearing General Appearance: cooperative GI normal to inspection, nondistended, normoactive bowel sounds, soft to palpation, non-tender and non-distended Percussion: normal to percussion Rectal Exam: deferred Lab / Micro Data 12/28/24 04:39 12/28/24 04:39 Labs: Laboratory Results - last 24 hr 12/27/24 05:50: Iron 17 L, TIBC 305, Iron Saturation 6.0 L, Unsaturated IBC 288, Ferritin 35 12/28/24 04:39: WBC 10.6, RBC 3.14 L, Hgb 8.5 L, Hct 26.4 L, MCV 84.1, MCH 27.1, MCHC 32.2, RDW Std Deviation 42.5, RDW Coeff of Augustin 13.8, Plt Count 203, MPV 9.4, Immature Gran % (Auto) 0.800, Neut % (Auto) 90.6 H, Lymph % (Auto) 5.5 L, [place] % (Auto) 3.0, Eos % (Auto) 0.0, Baso % (Auto) 0.1, Absolute Neuts (auto) 9.6 H, Absolute Lymphs (auto) 0.58 L, Nucleated RBC % 0, Sodium 139, Potassium 4.6, Chloride 93 L, Carbon Dioxide 37.2 H, Anion Gap 9, BUN 23 H, Creatinine 0.59 L, Estim Creat Clear Calc 64.18, Est GFR (MDRD) Non-Af 97, BUN/Creatinine Ratio 39.3 H, Glucose 132 H, Calcium 9.1 Micro: Microbiology 12/26/24 21:26 Sputum, Expectorated/Coughed Gram Stain - Final 12/26/24 21:26 Sputum, Expectorated/Coughed Respiratory Culture - Final Rhythm Strip Rhythm Strip: Sinus Rhythm Rate: 99 Ectopy: None Assessment & Plan Assessment/Plan (1) Acute anemia: PLAN: She should undergo an upper endoscopy. This is particularly important due to the fact that she needs to stay on anticoagulation for atrial fibrillation. She was explained alternatives, risk and benefits clued understanding bleeding, infection, septal, perforation, need for change and . She will have an ASA of 3. Charges/Coding Visit Charges Inpatient E&M: 47443 Init Hosp L3
--- NOTE | 2024-12-28 11:21 | PCM.PRE.AN2 ---
ASA Classification* ASA Classification ASA Classification: 3 Assessment & Plan Anesthesia* Anesthesia Assessment Anesthesia Assessment: Discussed sedation and/or anesthesia options, risks, benefits, and alternatives with patient/parents/legal guardian/POA. Questions invited. The patient/parents/legal guardian/POA seems to understand and agrees to proceed with anesthesia plan. Reviewed the physical assessment, medical history, allergy history and patient home medications list prior to surgery/procedure/anesthetic and documented any changes. Performed airway and anesthesia risk assessments. Anesthesia Type Anesthesia Type: MAC History Source History Obtained from:: Patient and Chart Anesthesia Focused Assessment* Temperature: 98.6 F Pulse Rate: 94 Blood Pressure: 136/78 Respiratory Rate: 16 Pulse Ox: 95 Oxygen Delivery Method: Nasal Cannula Oxygen Flow Rate (L/min): 3 Fraction of Inspired Oxygen (FIO2): 30 Airway Assessment Mouth opens: >3 cm Mallampati Score: IV Teeth Condition: Missing (Missing several teeth. Not the teeth you have they are all tight the rest are tight. You have an) Neck Range of motion (ROM): Limited ROM (Severe Restriction) Labs Anesthesia Preop lab: CBC WBC 10.6 K/mm3 (4.4-11.0) 12/28/24 04:39 12/28/24 RBC 3.14 M/mm3 (4.2-5.4) L 12/28/24 04:39 12/28/24 Hgb 8.5 g/dL (12.0-15.0) L 12/28/24 04:39 12/28/24 Hct 26.4 % (37-47) L 12/28/24 04:39 12/28/24 Plt Count 203 K/mm3 (150-450) 12/28/24 04:39 12/28/24 CHEMISTRY Potassium 4.6 mmol/L (3.3-5.1) 12/28/24 04:39 12/28/24 Sodium 139 mmol/L (133-145) 12/28/24 04:39 12/28/24 Magnesium 1.9 mg/dL (1.5-2.2) 12/26/24 17:57 12/26/24 Phosphorus 2.4 mg/dL (2.5-4.9) L 07/20/23 06:35 07/20/23 BUN 23 mg/dL (4-19) H 12/28/24 04:39 12/28/24 Creatinine 0.59 mg/dL (0.70-1.20) L 12/28/24 04:39 12/28/24 Glucose 132 mg/dL (70-99) H 12/28/24 04:39 12/28/24 TSH 0.281 uIU/mL (0.300-4.200) L 10/02/24 09:31 10/02/24 COAG Pre-Assessment Diagnosis/Proposed Procedure Planned Operative Procedure(s): Esophagogastroduodenoscopy Anesthesia History 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 When Was Last Pacemaker Check QUESTION #4 FULL TEXT: You/Your Family Experience fever (hyperthermia) with Anesthesia Last Oral Intake Last Oral intake: Last Oral Intake NPO since Meds taken in AM with sips of No 12/28/24 09:46 water? Meds patient instructed to take am of surgery Any additional information?: Yes NPO since: 00:00 Meds taken in AM with sips of water?: No PONV PONV - cold working inspector: PONV - cold working inspector Female HX of Motion Sickness HX of N/V After Surgery Non-Smoker Duration of Surgery greater than 60 minutes Number of Risk Factors PONV Score Height & Weight Height & Weight: Anesthesia: Height & Weight Height 5 ft 4 in 12/28/24 09:46 Weight: 74.8 kg 12/28/24 09:46 Body Mass Index (BMI) 28.3 12/28/24 09:46 Respiratory Assessment Respiratory Assessment - cold working inspector: Respiratory Tract Infection Hx - cold working inspector Hx Respiratory Tract Infection No 12/27/24 20:12 STOP Sleep Apnea STOP Sleep Apnea - cold working inspector: STOP Sleep Apnea - cold working inspector Hx Hypertension Yes 12/26/24 21:29 Hx Sleep Apnea No 12/26/24 21:29 CPAP No 12/26/24 21:29 BIPAP No 12/26/24 21:29 Do you snore loudly (louder No 12/26/24 21:29 than talking or can be heard Do you often feel tired/ Yes 12/26/24 21:29 fatigued/ sleepy during daytime? Has anyone observed you stop No 12/26/24 21:29 breathing during sleep? STOP Results Positive 12/26/24 21:29 QUESTION #5 FULL TEXT : Do you snore loudly (louder than talking or can be heard through closed doors)? 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 Specify any problems Hx of Preganancy in last 3 No 12/26/24 21:29 Months Nurse Filling Out Transfusion [employer] 12/26/24 21:29 & Questions: Date: 12/26/24 12/26/24 21:29 Time: 21:30 12/26/24 21:29 Patient unable to answer at this time (ie. confused, unrespo /Reproduction History /Reproductive History - cold working inspector: /Reproductive Hx- cold working inspector Hx Now No 12/27/24 20:12 Gestational Age (in weeks): EDC: Hx Hx Para Hx Section SAB No 12/27/24 20:12 Active Medications Active Medications: Current Medications Generic Name Dose Route Start Last Admin Trade Name Freq PRN Reason Stop Dose Admin Acetaminophen 650 mg 12/26/24 21:09 Acetaminophen 325 Mg Tablet PO Q4H PRN PRN Fever, pain 1-10/10 Hydrocodone Bitart/Acetaminophen 1 tablet 12/26/24 21:09 12/27/24 21:40 Hydrocodone Bitartrate/Apap 5/325 Tablet PO 1 tablet BID PRN PRN Administration pain 1-10 Al Hydroxide/Mg Hydroxide 30 ml 12/26/24 21:09 Mag Hydrox/Al Hydrox/Simeth 30 Ml Udc PO Q6H PRN PRN Gastric Burning Albuterol Sulfate 2.5 mg 12/26/24 21:09 12/27/24 12:45 Albuterol 2.5 Mg/3 Ml Vial.Neb. INHALATION 2.5 mg Q2H PRN PRN Administration Dyspnea, wheezing Albuterol/Ipratropium 3 ml 12/26/24 22:00 12/28/24 07:25 Ipratropium/Albuterol Sulfate 3 Ml Ampul.Neb INHALATION 3 ml Q4HWA.RT HINA Administration Buspirone HCl 10 mg 12/26/24 22:00 12/27/24 21:41 Buspirone 5 Mg Tablet PO 10 mg BID HINA Administration Carvedilol 6.25 mg 12/27/24 08:00 12/27/24 18:03 Carvedilol 6.25 Mg Tablet PO 6.25 mg BIDCM HINA Administration Protocol Cefdinir 300 mg 12/26/24 22:00 12/27/24 21:43 Cefdinir 300 Mg Capsule PO 12/31/24 10:01 300 mg Q12 HINA Administration Dronedarone 400 mg 12/26/24 22:00 12/27/24 21:42 Dronedarone Hydrochloride 400 Mg Tablet PO 400 mg BID HINA Administration Fluticasone Propionate 1 spray 12/27/24 10:00 12/27/24 10:21 Fluticasone 0.05% 1 [place] Nasal.Sry NASAL 1 spray DAILY HINA Administration Guaifenesin 10 ml 12/26/24 21:09 12/27/24 18:06 Guaifenesin 10 Ml Udc (200mg/10ml) PO 10 ml Q4H PRN PRN Administration COUGH/CONGESTION Hydralazine HCl 10 mg 12/26/24 21:09 Hydralazine 20 Mg/Ml Vial IV Q4H PRN PRN SBP > 160 Protocol Sodium Chloride 250 mls @ 15 mls/hr 12/26/24 21:24 IV .[id number] PRN Saline Flush Sodium Chloride 250 mls @ 15 mls/hr 12/26/24 21:24 IV .[id number] PRN Additional IVPB Infusion Pantoprazole Sodium 40 mg/ 100 mls @ 300 mls/hr 12/27/24 22:00 12/27/24 22:05 Sodium Chloride IV Infused Q12 HINA Infusion Lactated Ringer's 1,000 mls @ 15 mls/hr 12/28/24 10:45 12/28/24 10:52 IV 15 mls/hr .Q48H HINA Administration Lorazepam 0.5 mg 12/26/24 22:00 12/27/24 21:40 Lorazepam 0.5 Mg Tablet PO 0.5 mg QHS HINA Administration Melatonin 3 mg 12/26/24 21:09 Melatonin 3 Mg Tablet PO QHS PRN PRN INSOMNIA Methylprednisolone Sodium Succinate 40 mg 12/27/24 06:00 12/28/24 06:29 Methylprednisolone Sod Succ 40 Mg/Ml Vial IV 40 mg Q8 HINA Administration Montelukast Sodium 10 mg 12/27/24 10:00 12/27/24 10:20 Montelukast 10 Mg Tablet PO 10 mg DAILY HINA Administration Nicotine 7 mg 12/27/24 15:00 12/27/24 15:25 Nicotine (Pbkc) 7 Mg Patch TD 7 mg DAILY HINA Administration Ondansetron HCl 4 mg 12/26/24 21:09 Ondansetron 4 Mg/2 Ml Vial IV Q8H PRN PRN NAUSEA/VOMITING Pramipexole Dihydrochloride 0.125 mg 12/26/24 22:00 12/27/24 21:42 Pramipexole Di-Hcl 0.125 Mg Tablet PO 0.125 mg QHS HINA Administration Senna/Docusate Sodium 2 tablet 12/26/24 21:09 Senna/Docusate Sodium 1 Tablet PO BID PRN PRN Constipation Sertraline HCl 100 mg 12/26/24 22:00 12/27/24 21:43 Sertraline 100 Mg Tablet PO 100 mg BID HINA Administration Sodium Chloride 10 - 40 ml 12/26/24 21:24 12/28/24 06:29 0.9% Saline Lock 10 Ml Syringe IV 10 ml UD PRN Administration SALINE FLUSH Verapamil HCl 180 mg 12/26/24 22:00 12/27/24 21:41 Verapamil Sr 180 Mg Capsule PO 180 mg BID HINA Administration Protocol [facility] Medical History Afib Aortic valve stenosis RLS (restless legs syndrome) History of ETOH abuse Chronic hypoxic respiratory failure, on home oxygen therapy COPD (chronic obstructive pulmonary disease) Anxiety Depression Smoker Asthma Hypertension Migraines Home Medications ?Medication ?Instructions ?Recorded ?Last Taken ?Type albuterol sulfate 90 mcg/actuation 1 - 2 puff inhalation Q4H PRN PRN 04/18/13 09/23/14 History aerosol inhaler (Ventolin HFA) Bronchodialation cyclobenzaprine 10 mg tablet 10 mg PO Q12H pain 04/18/13 09/23/14 History 10 MG fluticasone propionate 50 1 spray intranasal DAILY nasal 04/18/13 09/23/14 History mcg/actuation nasal congestion spray,suspension montelukast 10 mg tablet 10 mg PO DAILY allergies 04/18/13 09/23/14 History 10 MG omeprazole 20 mg capsule,delayed 20 mg PO DAILY heart burn 04/18/13 09/23/14 History release 20 MG tiotropium bromide 18 mcg capsule 1 puff inhalation DAILY wheezing 04/18/13 09/23/14 History with inhalation device (Spiriva with HandiHaler) Oxygen, Home [Home Oxygen] 2.5 lpm PRN PRN Dyspnea 10/22/13 09/23/14 History sertraline 100 mg tablet 100 mg PO BID mood 10/22/13 09/23/14 History fluticasone 500 mcg-salmeterol 50 1 puff inhalation BID shortness of 10/26/13 09/23/14 Rx mcg/dose blistr powdr for breath ##1 inhalation (Advair Diskus) Ropinirole Hcl 0.25 mg PO QHS restless legs 09/23/14 Unknown History prednisone 10 mg tablet 15 mg PO QODAY PRN FLARE UPS 04/03/15 Unknown History ipratropium 0.5 mg-albuterol 3 mg 3 ml inhalation Q4HWA.RT wheezing 05/13/16 Unknown Rx (2.5 mg base)/3 mL nebulization ##30 soln lorazepam 0.5 mg tablet 0.5 mg PO QHS anxiety #7 tabs 05/05/20 Unknown Rx nicotine (polacrilex) 2 mg gum 2 mg buccal Q2H to stop smoking 07/22/23 Unknown Rx (Nicorette) #20 ea cholecalciferol (vitamin D3) 50 50 mcg PO DAILY vitamin 10/18/23 Unknown History mcg (2,000 unit) capsule (Vitamin D3) ipratropium 0.5 mg-albuterol 3 mg 3 ml inhalation Q6H PRN shortness 10/18/23 Unknown Rx (2.5 mg base)/3 mL nebulization of breath or wheezing #180 mL soln buspirone 10 mg tablet 10 mg PO BID anxiety 10/02/24 Unknown History hydrocodone-acetaminophen 5-325mg 1 tab PO BID PRN PRN pain 10/03/24 Unknown History 5mg-325mg nicotine 14 mg/24 hr daily 14 mg transdermal DAILY prn #28 ea 10/09/24 Unknown Rx transdermal patch apixaban 5 mg tablet (Eliquis) 5 mg PO BID blood thinne #60 tabs 11/03/24 Unknown Rx carvedilol 6.25 mg tablet 6.25 mg PO BID bp #60 tabs 11/03/24 Unknown Rx furosemide 20 mg tablet 20 mg PO DAILY fluid overload 12/27/24 Unknown History simethicone 250 mg capsule (Gas-X) 250 mg PO BID gas 12/27/24 Unknown History Allergy/AdvReac Type Severity Reaction Status Date / Time No Known Allergies Allergy Verified 12/26/24 13:56 Family History Mother Hypertension Throat cancer Father Hypertension Stomach cancer Surgical History H/O exploratory laparotomy History of lung surgery History of cholecystectomy Social History household members: significant other and none housing: apartment Smoking Status: Former smoker alcohol intake: former substance use type: does not use Homelessness:: Sheltered Review of Systems (Anesthesia) ROS Narrative System reviewed and no additional complaints, except as documented.
--- NOTE | 2024-12-28 11:53 | OP.EGD_ITS ---
Patient Name: Farrah Gonzalez Procedure Date: 12/28/2024 11:39 AM Date of : 1955 Age: 69 Procedure: Upper GI endoscopy Indications: Acute post hemorrhagic anemia Providers: Kyle Mendenhall DO Medicines: Monitored Anesthesia Care Patient Profile: This is a 69 year old female. Refer to note in patient chart for documentation of history and physical. Patient has symptoms. Complications: No immediate complications. Procedure: Pre-Anesthesia Assessment: - Prior to the procedure, a History and Physical was performed, and patient medications and allergies were reviewed. The patient is competent. The risks and benefits of the procedure and the sedation options and risks were discussed with the patient. All questions were answered and informed consent was obtained. Patient identification and proposed procedure were verified by the physician in the pre-procedure area. Mental Status Examination: alert and oriented. Airway Examination: normal oropharyngeal airway and neck mobility. Respiratory Examination: clear to auscultation. CV Examination: normal. Prophylactic Antibiotics: The patient does not require prophylactic antibiotics. Prior Anticoagulants: The patient has taken no anticoagulant or antiplatelet agents. ASA Grade Assessment: III - A patient with severe systemic disease. After reviewing the risks and benefits, the patient was deemed in satisfactory condition to undergo the procedure. The anesthesia plan was to use monitored anesthesia care (MAC). Immediately prior to administration of medications, the patient was re-assessed for adequacy to receive sedatives. The heart rate, respiratory rate, oxygen saturations, blood pressure, adequacy of pulmonary ventilation, and response to care were monitored throughout the procedure. The physical status of the patient was re-assessed after the procedure. After obtaining informed consent, the endoscope was passed under direct vision. Throughout the procedure, the patient's blood pressure, pulse, and oxygen saturations were monitored continuously. The gastroscope was introduced through the mouth, and advanced to the fourth part of the duodenum. Small bowel enteroscopy was deemed necessary. The upper GI endoscopy was accomplished without difficulty. The patient tolerated the procedure well. Scope In: 11:40:17 AM Scope Out: 11:45:38 AM Total Procedure Duration Time 0 hours 5 minutes 21 seconds Findings: The examined esophagus was normal. Hematin (altered blood/ysuafr-anubvw-qmei material) was found in the gastric body. Many oozing linear gastric ulcers with pigmented material were found in the gastric body and on the greater curvature of the stomach. The largest lesion was 6 mm in largest dimension. Coagulation for hemostasis using heater probe was successful. Estimated blood loss was minimal. Two 4 mm angiodysplastic lesions without bleeding were found in the first portion of the duodenum. Coagulation for destruction of remaining portion of lesion using heater probe was successful. Estimated blood loss was minimal. Impression: - Normal esophagus. - Hematin (altered blood/zcvqfo-kzyeao-iufk material) in the gastric body. - Oozing gastric ulcers with pigmented material. Treated with a heater probe. 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 Treated with a heater probe. - No specimens collected. Recommendation: - [facility]. - Resume previous diet. - Continue present medications. Procedure Code(s): --- Professional --- 59068, Small intestinal endoscopy, enteroscopy beyond second portion of duodenum, not including ileum; with ablation of tumor(s), polyp(s), or other lesion(s) not amenable to removal by hot biopsy forceps, bipolar cautery or snare technique 60592, 59,51, Small intestinal endoscopy, enteroscopy beyond second portion of duodenum, not including ileum; with control of bleeding (eg, injection, bipolar cautery, unipolar cautery, laser, heater probe, stapler, plasma milk treater) CPT copyright 2021 [employer]. All rights reserved. The codes documented in this report are preliminary and upon cloth laminating supervisor review may be revised to meet current compliance requirements. Kyle Mendenhall DO 12/28/2024 11:52:52 AM This report has been signed electronically. Number of Addenda: 0 Note Initiated On: 12/28/2024 11:39 AM
--- NOTE | 2024-12-28 11:53 | OP.PROVAT_ITS ---
12/28/2024 [address] [place] [address] Re : Upper GI endoscopy procedure for Farrahluis f Gonzalez Dear Dr. Fall This procedure was performed on December. My impressions and recommendations are as follows: Impressions : - Normal esophagus. - Hematin (altered blood/tgajwo-tufpui-zttx material) in the gastric body. - Oozing gastric ulcers with pigmented material. Treated with a heater probe. 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 Treated with a heater probe. - No specimens collected. Recommendations : - Return [facility] to [facility] for [facility]. - Resume previous diet. - Continue present medications. My findings are described in the full procedure note, which is enclosed. If I can be of further assistance, please feel free to contact me at . Sincerely, Kyle Friend, DO 12/28/2024 11:52:52 AM This report has been signed electronically.
--- NOTE | 2024-12-28 12:02 | PCM.POST.ANE ---
Anesthesia: Postop Eval I Current Vital Signs Temperature: 97 F Pulse Rate: 101 Blood Pressure: 119/72 Respiratory Rate: 18 Pulse Ox: 97 Oxygen Delivery Method: Nasal Cannula Oxygen Flow Rate (L/min): 3 Assessment Airway patent: Yes Spontaneous unlabored respirations: Yes Mental status: Asleep nausea: No Vomiting: No Anesthesia Complication: No Fluid Hydration Crystalloid volume administer (ml): 400 Total IV fluid infused: 400 Progress Note Anesthesia document: Postop Eval 1 completed: Yes
[2024-12-28] MEDS: Albuterol 2.5 MG/3 ML VIAL.NEB. INHALATION (12:15)
[2024-12-28] MEDS: Verapamil SR 180 MG CAPSULE PO ×2 (13:12→20:10)
[2024-12-28] MEDS: Nicotine (PBKC) 7 MG Patch TD (13:13)
[2024-12-28] MEDS: Pantoprazole Sodium 40 MG in 0.9% Normal Saline (100mL MB+) 100 ML 330 MG IV ×2 (13:19→23:38)
[2024-12-28] MEDS: HYDROcodone Bitartrate/Apap 5/325 Tablet PO (13:19)
--- NOTE | 2024-12-28 14:05 | CASEMGMT ---
KAREN VARGAS updated by Stacy, Inpatient Palliative CARPENTER ASSEMBLER, that patient would like outpatient palliative at discharge. KAREN VARGAS in to provide patient with Palliative Care List. Patient states she prefers [facility]. Patient had no further questions or concerns. KAREN VARGAS sent referral to [facility] via email.
--- NOTE | 2024-12-28 14:50 | PCM.PROGNOTE ---
Subjective Subjective Patient seen and examined with her nurse by her bedside. She had no complaints. SHe remained on 3L of oxygen which is her baseline. Review of systems is otherwise negative. She had EGD this morning which showed Objective Data Objective Data Vital Signs: Vital Signs Temp Pulse Resp BP Pulse Ox O2 Del Method O2 Flow Rate 98.5 F 99 18 130/72 H 97 Nasal Cannula 3 12/28/24 13:04 12/28/24 13:04 12/28/24 13:04 12/28/24 13:04 12/28/24 13:04 12/28/24 13:32 12/28/24 13:32 FiO2 30 12/28/24 11:25 Oxygen Flow Rate (L/min) 3 Oxygen Delivery Method Nasal Cannula Weight: 164 lb 14.492 oz Body Mass Index (BMI) 28.3 Intake & Output: Intake and Output for Last 24 Hours 12/26/24 12/27/24 12/28/24 23:59 23:59 23:59 Intake Total 120 / 120 1300 / 1300 139.5 / 139.5 Output Total 400 / 400 / Balance 120 / 120 900 / 900 138.5 / 138.5 Lab / Micro Data 12/28/24 04:39 12/28/24 04:39 Labs: Laboratory Results - last 24 hr 12/28/24 04:39: WBC 10.6, RBC 3.14 L, Hgb 8.5 L, Hct 26.4 L, MCV 84.1, MCH 27.1, MCHC 32.2, RDW Std Deviation 42.5, RDW Coeff of Augustin 13.8, Plt Count 203, MPV 9.4, Immature Gran % (Auto) 0.800, Neut % (Auto) 90.6 H, Lymph % (Auto) 5.5 L, [place] % (Auto) 3.0, Eos % (Auto) 0.0, Baso % (Auto) 0.1, Absolute Neuts (auto) 9.6 H, Absolute Lymphs (auto) 0.58 L, Nucleated RBC % 0, Sodium 139, Potassium 4.6, Chloride 93 L, Carbon Dioxide 37.2 H, Anion Gap 9, BUN 23 H, Creatinine 0.59 L, Estim Creat Clear Calc 64.18, Est GFR (MDRD) Non-Af 97, BUN/Creatinine Ratio 39.3 H, Glucose 132 H, Calcium 9.1 Micro: Microbiology 12/26/24 21:26 Sputum, Expectorated/Coughed Gram Stain - Final 12/26/24 21:26 Sputum, Expectorated/Coughed Respiratory Culture - Final 12/26/24 20:48 Mucosa - Nasopharyngeal Respiratory Panel (PCR) - Final Rhythm Strip Rhythm Strip: Sinus Rhythm Rate: 99 Ectopy: None Social Homelessness:: Sheltered Physical Exam Const alert, oriented x3 and no apparent distress General Appearance: cooperative HEENT normocephalic, head/scalp atraumatic, moist oral mucous membranes and oropharynx normal Eyes EOMs intact bilaterally Neck supple and no JVD Lymph Lymphatic: no lymphedema noted Resp Resp Narrative: mildly diminished breath sounds bibasally, no wheezes or crackles. Remains on 3L of oxygen by nasal canula Cardio regular rate, regular rhythm, S1 normal heart sound and S2 normal heart sound Cardio Narrative: grade 3-4 ejection systolic murmur over the aortic valve region GI normal to inspection, nondistended, normoactive bowel sounds, soft to palpation and non-tender Extremity normal capillary refill, no clubbing, cyanosis or edema and no calf tenderness General Extremity: no tenderness to palpation of joints or extremities Skin General Skin Exam: no breakdown Neuro CN's II-XII intact bilaterally and no focal motor deficits Motor Exam: general weakness Psych thought process normal and cooperative Appearance: appropriate Assessment & Plan Assessment/Plan (1) Acute respiratory insufficiency: (2) COPD with acute exacerbation: PLAN: Plan #Acute COPD exacerbation in the setting of chronic respiratory failure On 3 L of oxygen which is her baseline. On breathing treatments bronchodilators. On IV Solu-Medrol. Titrate oxygen as needed to be to saturation above 90%. Respiratory panel was negative. Currently on cefdinir. #Acute anemia: Was started on Eliquis during most recent admission for A-fib. No globin is down to around 8. Stool for occult blood pending. Iron panel showed evidence of iron deficiency anemia. Will consult gastroenterology. 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 Hb today is 8.5. #Hypokalemia: resolved. K is 4.6 today. # History of non-small cell lung cancer: S/p right lung lobectomy. In remission. #Severe aortic valve stenosis: 2D echo from 11/03/2024 showed severe concentric left ventricular hypertrophy with EF of 70% and stage I diastolic dysfunction. To follow-up at [facility] as scheduled for evaluation for TAVR. On Multaq, Coreg and verapamil. #Hypertension: On Coreg and verapamil. IV hydralazine as needed #History of paroxysmal A-fib: On Coreg and Multaq. Eliquis held in light of anemia. #GERD: On PPI DVT prophylaxis: SCDs Disposition: likely dc tomorrow. Charges/Coding Visit Charges Inpatient E&M: 56943 Subs Hosp L2
--- NOTE | 2024-12-28 15:26 | PCM.POSTANE2 ---
Anesthesia Postop Eval I Sum Postop Eval Completion status Anesthesia document: Postop Eval 1 completed: Yes Anesthesia Postop Eval I Summary Anesthesia Postop Eval I Summary: Anesthesia Postop Eval I: Assessment Summary Airway patent Yes 12/28/24 12:05 [email or web address] Spontaneous unlabored Yes 12/28/24 12:05 [email or web address] respirations Mental status Asleep 12/28/24 12:05 [email or web address] nausea No 12/28/24 12:05 [email or web address] Vomiting No 12/28/24 12:05 [email or web address] Anesthesia Postop Eval I: Fluid Summary Crystalloid volume administer 400 12/28/24 12:05 [email or web address] (ml) Colloids volume administered ( ml) Blood Product volume administered (ml) Total IV fluid infused 400 12/28/24 12:05 [email or web address] Anesthesia Postop Eval I: Summary Notes Anesthesia Complication No 12/28/24 12:05 [email or web address] Anesthesia Complication Comment: Post-operative progress note Anesthesia: Postop Eval II Evaluation Mental status: Awake and Calm Pain Level: 0 nausea: No Vomiting: No Complications Anesthesia Complication: No
[2024-12-28] MEDS: Pramipexole Di-HCl 0.125 MG Tablet PO (20:10)
--- NOTE | 2024-12-28 22:22 | EKG12_ITS ---
Test Reason : TACHYCARDIA Blood Pressure : */* mmHG Vent. Rate : 125 BPM Atrial Rate : * BPM P-R Int : * ms QRS Dur : 82 ms QT Int : 264 ms P-R-T Axes : * 47 77 degrees QTcB Int : 381 ms Atrial fibrillation with rapid ventricular response Abnormal ECG When compared with ECG of 26-Dec-2024 14:03, Atrial fibrillation has replaced Sinus rhythm Confirmed by GAVIN OWEN, ELINA ([id number]), news videotape editor LEORA RESTREPO ([id number]) on 01/01/2025 8:56:19 AM Referred By: ZAINAB Confirmed By: ELINA ALONSO MD
--- NOTE | 2024-12-28 23:11 | PCM.HOSP.N ---
Hospitalist Note Patient with notable tachycardia, improved with evening medications however blood pressure is now 90/60. Will change from DuoNeb therapies to ipratropium component only for every 4 hours while awake as likely air cells contributing given COPD exacerbation presentation.
[2024-12-28] MEDS: Digoxin 250 MCG/ML Ampul 500 MCG IV (23:49)
[2024-12-29] VITALS (13 sets, daily range): BP systolic 95–142; BP diastolic 57–65; PULSE 83–100; RESP 16–22; TEMP 36.5–37.2; O2SAT 93–98; BMI 27.9
--- NOTE | 2024-12-29 02:32 | NURSING ---
Report received from Estefany Barros RN. This RN to take over care of this patient at this time.
[2024-12-29] MEDS: Ipratropium 0.5 MG/2.5 ML SOLUTION INHALATION ×5 (05:15→23:00)
[2024-12-29] MEDS: 0.9% Saline Lock 10 ML Syringe IV ×3 (06:39→19:47)
[2024-12-29 10:12] LABS: Hematocrit 26.6 % (37-47); Hemoglobin 8.4 g/dL (12.0-15.0); Immature Granulocytes Count 0.050 X10^3/uL (0.0-0.0); Mean Corp Hgb Conc 31.6 g/dL (32-36); Mean Corpuscular Volume 84.4 fL (81-99); Mean Platelet Vol. 9.3 fl (6.2-12.0); NRBC Flagged by Analyzer 0 % (0-5); POSITIVE DIFFERENTIAL YES; Platelet Count 169 K/mm3 (150-450); RBC Distribution Width CV 14.0 % (11.6-14.6); RBC Distribution Width SD 43.0 fl (35.1-43.9); Red Blood Count 3.15 M/mm3 (4.2-5.4); White Blood Count 7.6 K/mm3 (4.4-11.0)
[2024-12-29 10:39] LABS: Anion Gap 8 (5-15); BUN 21 mg/dL (4-19); BUN/Creat Ratio 37.4 RATIO (10-20); Calcium,Total 8.7 mg/dL (7.6-11.0); Carbon Dioxide 38.0 mmol/L (21.0-32.0); Chloride 94 mmol/L (98-108); Estimated Creatinine Clearance 65.36 ml/min (50-250); Glucose 97 mg/dL (70-99); Potassium 4.4 mmol/L (3.3-5.1)
--- NOTE | 2024-12-29 11:09 | PCM.PN.PAL ---
Subjective Subjective 12/29/24: Prior to meeting with the patient at bedside I did reviewed documentation and labs from overnight. I then met with Ting at bedside. She states that she is feeling better today. She states I know I do not have a lot of time left. I then asked her if she felt that she was ready for hospice and she stated no not yet. I did explain to her that hospice could help with better symptom management, when she does choose to transition to hospice. She stated understanding. She did state that she continues to be open to outpatient palliative care for symptom management and an extra layer of support going forward. We did discuss her EGD from yesterday as she did not remember what the doctor said told her. I did let her know that she did have some gastric ulcers that were oozing and that Dr. Mendenhall used a heat probe on those areas. She stated understanding. Ting continues to be on her home oxygen administration of 3 L and she is satting 96% currently. I listen to her lungs in which she does continue to have some coarse crackles bilaterally with expiratory wheezes. She does feel that she could use belies a breathing treatment right now. We then had an extensive discussion about her anxiety. She states that it is a vicious cycle that when she gets anxious her breathing gets worse because she feels like she shuts down. She is hopeful that she could go back on her medications that she was taking previously to assist with her anxiety which in turn helps her breathing. I do feel that, at this time, patient would benefit from better anxiety control. She is currently receiving Ativan at night which she states has been of great benefit. Patient may benefit from twice daily Ativan with 1 being scheduled and the other as needed. Patient did request that I send my recommendations to her primary care provider. I did remind her that it is the doctors privilege to treat the patient and what he feels is the best interest. She did state understanding. All questions the patient had were answered. Palliative care will continue to follow for support and goals of care conversations going forward. 12/28/24: Prior to meeting with the patient at bedside I reviewed documentation and labs from overnight. I then met with the patient, Ting at bedside. She was sleeping upon entering my room and I did notice that while she was relaxed she breathes much easier. I did listen to her lungs while she was laying on her left side in which her lung sounds are diminished bilaterally with some fine crackles. Patient was then gently awakened by myself and GRANULIZING MACHINE OPERATOR to do her vitals. Patient states that she feels that she is breathing much easier today. We did have an extensive discussion about relaxation and how it affects her breathing. I did teach her deep breathing exercises and guided imagery to help her during times of extreme anxiety. She does state that her granddaughter is a source of calming for her and that she will concentrate on her during these times. She was able to repeat demonstration deep breathing exercises. We also discussed her sleep overnight which she states that she did sleep very well. She does receive Ativan 0.5 mg p.o. nightly which she states that she feels is helping her. I do recommend the possibility of increasing her Ativan to twice daily to assist with keeping her more calm during hospitalization. Patient would most likely benefit from a daily as needed of Ativan for panic attacks. I did note that patient's potassium has normalized today at 4.6 from 3.0 yesterday. Her BUN is slightly elevated at 23 from 18 yesterday creatinine is 0.59. Hemoglobin and hematocrit have remained stable from yesterday. Patient states that she continues to be interested in palliative care on outpatient basis. Case management updated. All questions answered. 12/27/24: Prior to meeting with the patient at bedside I reviewed documentation, labs, and radiological studies also documentation from previous visits in September. I then met with the patient, Ting at bedside. She was sitting on the edge of the bed. Audible coarse crackles noted with cough. I introduced myself and the concept of palliative care which she voluntarily excepted our services. Ting states that she received outpatient palliative care services previously but was told that they could not help her because she was requiring pain management. At this time, I do feel that the patient would benefit from palliative care from an outpatient standpoint as she does have severe anxiety which is keeping her from having any quality of life and keeps her in her home as well as shortness of breath. Patient states that the majority of her anxiety can be attributed to her fear of running out of oxygen. She states that she only has a small tank for when she goes out of the home and that she is fearful that she will run out of oxygen. She does not have a condenser at home and only has 1 tank at home. I do feel that the patient would benefit from a condenser to help relieve her anxiety for running out of oxygen. She does state that her primary care provider has significantly reduced her pain medications at home in which she previously was receiving 120 tablets/month and that she is now down to 60. Her primary care provider did take her off of her Xanax and now has her on Zoloft twice a day and BuSpar 4 times per day. She does not feel that this combination is working for her. Patient did become extremely anxious while talking about her medications and her breathing. It was recommended that she utilize BiPAP while in the hospital and she initially stated that she did not want to use it. She did utilize it overnight and states that it did help her. She is open to utilizing BiPAP at home. Patient states that her quality of life at home has significant significantly decreased recently. She states that she loves to fish and would like to spend time with her family at events but she is too fearful to leave her house for fear of running out of oxygen. Patient does have a significant other, Mike, who was able to help her at home she also has a neighbor who comes down to help her as well. I do feel that Ting would benefit from outpatient palliative care services in which she is open to, for anxiety and shortness of breath. She does understand that palliative care will not be able to assist her with pain management and that would be provided by her primary care provider. Patient did endorse being a full code and states understanding of the benefits versus burdens of CPR and intubation. I also discussed the possibility of hospice in which she then also became anxious and stated that she was not ready to talk about that quite yet. All questions were answered. Palliative care will continue to follow for goals of care conversations as clinical picture evolves. HPI:The patient is a 69 y/o F w/ PMHx: Valvular Heart Disease, GERD, RLS, Anxiety and Depression, Former tobacco use, Former EtOH Abuse, Hx Non-small cell lung cancer status post right lung lobectomy remotely 2003, COPD/Asthma with Chronic Hypoxic Respiratory Failure (2L NC) with allergic rhinitis, HTN who presents to the [facility] ED on 12/26/2024 with history of 3 to 4 days of progressively worsening fatigue, malaise, dyspnea with chest tightness and wheezing coupled unfortunately with significant panic attacks whenever she has been attempting to leave the house with a productive cough specifically of yellow sputum prompting ED evaluation be cautious. She does report that she is supposed to have a heart cath at [facility] in the next several weeks because of valvular heart disease for evaluation. Patient reports that her stools she believes have been normal in appearance. He does describe ongoing constant tightness with her dyspnea in the chest but no specific stabbing pain or significant pressure or pleuritic discomfort. Workup in the ED included T98.7, heart 100, BP 140/66, respiratory rate 20, 97% on 3 L normally per record on chronic 2 L nasal cannula supplementation with most recent repeat vitals heart rate 100, BP 128/75, respiratory rate 18, 98% on 3 L nasal cannula, CBC with WC 9.6, hgb 9.2, MCV 84.5, platelet 218 with left shift, BMP with chloride 88, carbon oxide 41.6, BUN/creatinine 16/0.64, GFR 96, glucose 112, initial troponin 25 with repeat delta 25, chest x-ray with surgical clips overlying the upper mediastinum and right paratracheal region with some local volume loss and linear scarring as well as COPD type changes with no acute cardiopulmonary findings, EKG with SR with nonspecific changes with no acute evidence of ischemia. In the ED patient ministered albuterol treatment x 3 and DuoNeb therapy x 1 in addition to Xanax 0.25 mg p.o. x 1, doxycycline 100 mg p.o. x 1 and Solu-Medrol 125 mg IV x 1. Objective Data Objective Data Vital Signs: Vital Signs Temp Pulse Resp BP Pulse Ox O2 Del Method O2 Flow Rate 98.5 F 83 22 H 122/57 H 98 Nasal Cannula 3 12/29/24 01:00 12/29/24 06:00 12/29/24 06:00 12/29/24 06:00 12/29/24 06:00 12/29/24 06:52 12/29/24 06:52 FiO2 30 12/28/24 11:25 Oxygen Flow Rate (L/min) 3 Oxygen Delivery Method Nasal Cannula Weight: 162 lb 14.746 oz Body Mass Index (BMI) 27.9 Intake & Output: Intake and Output for Last 24 Hours 12/27/24 12/28/24 12/29/24 23:59 23:59 23:59 Intake Total 1300 / 1300 799.5 / 799.5 Output Total 400 / 400 1 / 301 300 / 300 Balance 900 / 900 798.5 / 498.5 -300 / -300 Lab / Micro Data Attestation: I reviewed the patient's lab results. 12/29/24 10:01 12/29/24 10:01 Labs: Laboratory Results - last 24 hr 12/29/24 10:01: WBC 7.6, RBC 3.15 L, Hgb 8.4 L, Hct 26.6 L, MCV 84.4, MCH 26.7 L, MCHC 31.6 L, RDW Std Deviation 43.0, RDW Coeff of Augustin 14.0, Plt Count 169, MPV 9.3, Immature Gran % (Auto) 0.700, Neut % (Auto) 89.9 H, Lymph % (Auto) 6.5 L, Morris % (Auto) 2.8, Eos % (Auto) 0.0, Baso % (Auto) 0.1, Absolute Neuts (auto) 6.8, Absolute Lymphs (auto) 0.49 L, Nucleated RBC % 0, Sodium 140, Potassium 4.4, Chloride 94 L, Carbon Dioxide 38.0 H, Anion Gap 8, BUN 21 H, Creatinine 0.55 L, Estim Creat Clear Calc 65.36, Est GFR (MDRD) Non-Af 99, BUN/Creatinine Ratio 37.4 H, Glucose 97, Calcium 8.7 Micro: Microbiology 12/26/24 21:26 Sputum, Expectorated/Coughed Gram Stain - Final 12/26/24 21:26 Sputum, Expectorated/Coughed Respiratory Culture - Final 12/26/24 20:48 Mucosa - Nasopharyngeal Respiratory Panel (PCR) - Final Rhythm Strip Rhythm Strip: Sinus Rhythm Rate: 99 Ectopy: None Social Homelessness:: Sheltered Physical Exam Const alert and oriented x3 General Appearance: cooperative Orientation / Consciousness: awake, oriented to person, oriented to place and oriented to time Exam Limitations: no limitations HEENT normocephalic Eyes Eyes Narrative: Corrective lenses Neck full ROM Lymph Lymphatic: no lymphadenopathy noted Chest inspection of chest normal Resp Effort and Inspection: able to speak in complete sentences, tachypneic, pursed lip breathing and audible wheezes Auscultation: crackles and diminished lung sounds Cardio regular rate GI normal to inspection, nondistended, normoactive bowel sounds no CVA tenderness Back/Spine no CVA tenderness Extremity normal to inspection Skin no rashes or lesions noted Neuro oriented x3 Psych Mood & Affect: anxious Charges/Coding Palliative Care Palliative Care: 94812 Follow up 35-49 min Consulation Summary Current admission Current Code Status: full code Associated Diagnosis: COPD Consult Data Date of Consult: 12/28/24 Location of consult: PCU Reason for referral: goals of care and code status Referral source: Sienna Schafer Palliative care diagnosis (Summary list): COPD exacerbation Palliative care services/treatment (Accepted, as consult): accepted Case discussed with referring provider: provider notes Palliative Assessment Advanced Directive - Current Admission Advance Directive: Advance Directive ON ADMISSION - REFERENCE Do you have a Healthcare No 12/26/24 21:29 Living Will? Do you have a Healthcare Power No 12/26/24 21:29 of Compressor Station Engineer Chief? Do You Want Additional Declined 12/26/24 21:29 Information on Advanced Directives or Healthcare Proxy/DPOA comments: Significant other, Mike Symptoms Dyspnea symptoms: Severe Constipation symptoms: None Nausea symptoms: None Vomiting symptoms: None Depression symptoms: Moderate Anorexia symptoms: None Cough symptoms: Moderate Insomnia symptoms: Mild Diarrhea symptoms: None Fatigue symptoms: Mild Weakness symptoms: Mild Confusion symptoms: None Impression & Recommendations Impressions Impressions: Patient would benefit from palliative care outpatient services. Recommentation Palliative recommendations: I do recommend that the patient receives outpatient palliative. Encouter Achieved as a result of this Palliative Care Encounter: [[id number], [id number] ] minutes were spent in total for this visit which consisted, primarily of counseling and education dealing with the complex and emotionally intense issues of symptom management and palliative care in the setting of serious and potentially life-threatening illness. Review of documentation, labs and radiological studies. ?Patient/family had the opportunity to ask questions Plan (1) COPD with acute exacerbation: PLAN: Medical management per primary team (2) Respiratory insufficiency: PLAN: Medical management per primary team (3) Anxiety and depression: PLAN: Recommend aggressive anxiety management for improved respiratory status (4) Palliative care encounter: PLAN: Palliative care outpatient referral ROS Constitutional Constitutional: Reports systems reviewed and no addt'l complaints, except as documented Eyes Eyes: Reports systems reviewed and no addt'l complaints, except as documented ENT HEENT: Reports systems reviewed and no addt'l complaints, except as documented Cardiovascular Cardiovascular: Reports dyspnea, dyspnea at rest and dyspnea on exertion Respiratory/Chest Respiratory/Chest: Reports chest congestion, chest tightness, cough, dyspnea, dyspnea on exertion and wheezing Gastrointestinal Gastrointestinal: Reports other Details: States that she is feeling better today Genitourinary Genitourinary: Reports systems reviewed and no addt'l complaints, except as documented Musculoskeletal Musculoskeletal: Reports systems reviewed and no addt'l complaints, except as documented Integumentary Integumentary: Reports systems reviewed and no addt'l complaints, except as documented Neurologic Neurologic: Reports systems reviewed and no addt'l complaints, except as documented Psychiatric Psychiatric: Reports anxiety and other Details: Patient does have severe anxiety which does affect her breathing. Endocrine Endocrinology: Reports systems reviewed and no addt'l complaints, except as documented Hematologic/Lymphatic Hematologic/Lymphatic: Reports systems reviewed and no addt'l complaints, except as documented Allergic/Immunologic Allergic/Immunologic: Reports systems reviewed and no addt'l complaints, except as documented
[2024-12-29] MEDS: Verapamil SR 180 MG CAPSULE PO ×2 (11:51→23:29)
[2024-12-29] MEDS: Nicotine (PBKC) 7 MG Patch TD (11:52)
[2024-12-29] MEDS: Pantoprazole Sodium 40 MG in 0.9% Normal Saline (100mL MB+) 100 ML 300 MG IV ×2 (12:01→23:31)
--- NOTE | 2024-12-29 13:46 | PN_ITS ---
Subjective Subjective Patient seen and examined with her nurse by her bedside. She had no active complaitns. She remained on her baseline 3L of oxygen. Her heart rate went up to the 140s overnight and she had to be given a dose of digoxin. Heart rate is better controlled today. Objective Data Objective Data Vital Signs: Vital Signs Temp Pulse Resp BP Pulse Ox O2 Del Method O2 Flow Rate 97.7 F L 100 18 142/62 H 96 Nasal Cannula 3 12/29/24 11:50 12/29/24 11:50 12/29/24 11:50 12/29/24 11:50 12/29/24 11:50 12/29/24 11:50 12/29/24 11:50 FiO2 30 12/28/24 11:25 Oxygen Flow Rate (L/min) 3 Oxygen Delivery Method Nasal Cannula Weight: 162 lb 14.746 oz Body Mass Index (BMI) 27.9 Intake & Output: Intake and Output for Last 24 Hours 12/27/24 12/28/24 12/29/24 23:59 23:59 23:59 Intake Total 1300 / 1300 799.5 / 799.5 Output Total 400 / 400 1 / 301 300 / 300 Balance 900 / 900 798.5 / 498.5 -300 / -300 Lab / Micro Data 12/29/24 10:01 12/29/24 10:01 Labs: Laboratory Results - last 24 hr 12/29/24 10:01: WBC 7.6, RBC 3.15 L, Hgb 8.4 L, Hct 26.6 L, MCV 84.4, MCH 26.7 L , MCHC 31.6 L, RDW Std Deviation 43.0, RDW Coeff of Augustin 14.0, Plt Count 169, MPV 9.3, Immature Gran % (Auto) 0.700, Neut % (Auto) 89.9 H, Lymph % (Auto) 6.5 L, [place] % (Auto) 2.8, Eos % (Auto) 0.0, Baso % (Auto) 0.1, Absolute Neuts (auto) 6.8, Absolute Lymphs (auto) 0.49 L, Nucleated RBC % 0, Sodium 140, Potassium 4.4, Chloride 94 L, Carbon Dioxide 38.0 H, Anion Gap 8, BUN 21 H, Creatinine 0.55 L, Estim Creat Clear Calc 65.36, Est GFR (MDRD) Non-Af 99, BUN/Creatinine Ratio 37.4 H, Glucose 97, Calcium 8.7 Micro: Microbiology 12/26/24 21:26 Sputum, Expectorated/Coughed Gram Stain - Final 12/26/24 21:26 Sputum, Expectorated/Coughed Respiratory Culture - Final 12/26/24 20:48 Mucosa - Nasopharyngeal Respiratory Panel (PCR) - Final Rhythm Strip Rhythm Strip: Sinus Rhythm Rate: 99 Ectopy: None Social Homelessness:: Sheltered Physical Exam Const alert, oriented x3 and no apparent distress General Appearance: cooperative HEENT normocephalic, head/scalp atraumatic, moist oral mucous membranes and oropharynx normal Eyes EOMs intact bilaterally Neck supple and no JVD Lymph Lymphatic: no lymphedema noted Resp Resp Narrative: mildly diminished breath sounds bibasally, no wheezes or crackles. Remains on 3L of oxygen by nasal canula Cardio regular rate, regular rhythm, S1 normal heart sound and S2 normal heart sound Cardio Narrative: grade 3-4 ejection systolic murmur over the aortic valve region GI normal to inspection, nondistended, normoactive bowel sounds, soft to palpation and non-tender Extremity normal capillary refill, no clubbing, cyanosis or edema and no calf tenderness General Extremity: no tenderness to palpation of joints or extremities Skin General Skin Exam: no breakdown Neuro CN's II-XII intact bilaterally and no focal motor deficits Motor Exam: general weakness Psych thought process normal and cooperative Appearance: appropriate Assessment & Plan Assessment/Plan (1) Acute respiratory insufficiency: (2) COPD with acute exacerbation: PLAN: Plan #Acute COPD exacerbation in the setting of chronic respiratory failure * On 3 L of oxygen which is her baseline. On breathing treatments bronchodilators. On IV Solu-Medrol. Will switch to PO prednisone 40mg daily x 5 days. * Titrate oxygen as needed to be to saturation above 90%. Respiratory panel was negative. * Currently on cefdinir; to complete a 5 day course. #Acute anemia: * Was started on Eliquis during most recent admission for A-fib. No globin is down to around 8. Stool for occult blood pending. * Iron panel showed evidence of iron deficiency anemia. Will consult gastroenterology. 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 * Hb today is 8.4. * #Afib * Went into A-fib with RVR overnight. On Coreg and Multaq as well as Cardizem. Also received a dose of digoxin. Heart rate is better controlled today. Eliquis remains on hold and per GI to hold Eliquis till next week 01/02/2025. * 2D echo from 10/02/2024 showed EF of 70% with stage I diastolic dysfunction and severe aortic stenosis * #Hypokalemia: resolved. K is 4.6 today. # History of non-small cell lung cancer: S/p right lung lobectomy. In remission. #Severe aortic valve stenosis: * 2D echo from September 2024 showed severe concentric left ventricular hypertrophy with EF of 70% and stage I diastolic dysfunction. * To follow-up at [facility] as scheduled for evaluation for TAVR. * On Multaq, Coreg and verapamil. * #Hypertension: On Coreg and verapamil. IV hydralazine as needed #History of paroxysmal A-fib: On Coreg and Multaq. Eliquis held in light of anemia. #GERD: On PPI DVT prophylaxis: SCDs Disposition:due to her going into afib with RVR overnight, will watch one more day to ensure she remains stable. FOr likely dc over the next 24-48 hours Charges/Coding Visit Charges Inpatient E&M: 07706 Subs Hosp L2
--- NOTE | 2024-12-29 16:13 | CASEMGMT ---
KAREN CM received call from Palma Gonzales, [facility] , requested update. RN CM updated CM to HHC setup and palliative referral at discharge. Palma requested DC paperwork be faxed at discharge to [phone]. RN CM called and updated [facility] of possible discharge over the weekend, start of care planned for Wednesday. RN CM in to discuss discharge planning with patient and updated regarding [facility] start of care. Patient voiced appreciation and had no further questions or concerns. RN CM updated discharge plan. Green sheet on chart for HHC, Passport CM, and possible increase in home oxygen.
[2024-12-29] MEDS: Pramipexole Di-HCl 0.125 MG Tablet PO (23:29)
[2024-12-29] MEDS: guaiFENesin 10 ML UDC (200MG/10ML) PO (23:34)
[2024-12-30] MEDS: 0.9% Saline Lock 10 ML Syringe IV ×2 (00:50→05:05)
[2024-12-30 03:00] VITALS: PULSE 88
[2024-12-30 04:44] LABS: Hematocrit 28.6 % (37-47); Hemoglobin 8.9 g/dL (12.0-15.0); Immature Granulocytes Count 0.050 X10^3/uL (0.0-0.0); Mean Corp Hgb Conc 31.1 g/dL (32-36); Mean Corpuscular Volume 84.6 fL (81-99); Mean Platelet Vol. 9.7 fl (6.2-12.0); NRBC Flagged by Analyzer 0 % (0-5); POSITIVE DIFFERENTIAL YES; Platelet Count 212 K/mm3 (150-450); RBC Distribution Width CV 13.7 % (11.6-14.6); RBC Distribution Width SD 42.5 fl (35.1-43.9); Red Blood Count 3.38 M/mm3 (4.2-5.4); White Blood Count 8.0 K/mm3 (4.4-11.0)
[2024-12-30 05:08] LABS: Anion Gap 9 (5-15); BUN 16 mg/dL (4-19); BUN/Creat Ratio 31.0 RATIO (10-20); Calcium,Total 8.5 mg/dL (7.6-11.0); Carbon Dioxide 37.3 mmol/L (21.0-32.0); Chloride 95 mmol/L (98-108); Estimated Creatinine Clearance 65.36 ml/min (50-250); Glucose 124 mg/dL (70-99); Potassium 4.7 mmol/L (3.3-5.1)
[2024-12-30 05:14] VITALS: BMI 27.4
[2024-12-30 06:58] VITALS: PULSE 93; RESP 18; O2SAT 93
[2024-12-30] MEDS: Ipratropium 0.5 MG/2.5 ML SOLUTION INHALATION ×2 (06:58→11:03)
[2024-12-30 08:30] VITALS: BP 123/49; PULSE 96; RESP 20; TEMP 36.7; O2SAT 97
[2024-12-30] MEDS: Pantoprazole Sodium 40 MG in 0.9% Normal Saline (100mL MB+) 100 ML 300 MG IV (10:56)
[2024-12-30] MEDS: Verapamil SR 180 MG CAPSULE PO (10:57)
[2024-12-30] MEDS: Nicotine (PBKC) 7 MG Patch TD (10:58)
[2024-12-30 11:04] VITALS: PULSE 90; RESP 18
[2024-12-30] MEDS: HYDROcodone Bitartrate/Apap 5/325 Tablet PO (11:15)
--- NOTE | 2024-12-30 11:42 | PCM.DC.SUM ---
Providers Date of Admission: 12/26/24 Date of Discharge: 12/30/24 Primary Care Physician: Dr. Arnulfo Fall MD Consultations 12/27/24 13:46 Consult: Inpatient Palliative Care Routine Consulting Provider: Stacy Jha Reason for Consult: COPD. On home O2. Pt voices interest. EMERGENT Consult: No Notified: Yes Date Notified: 12/27/24 Time Notified: 13:47 Method of Notification: Text 12/27/24 17:29 Consult: Gastroenterology Routine Consulting Provider: [facility] Reason for Consult: acute on chronic anemia EMERGENT Consult: No Notified: Yes Date Notified: 12/27/24 Time Notified: 17:29 Method of Notification: Text Reason For Visit: COPD EXACERBATION, ACUTE ANEMIA Diagnosis Discharge Diagnosis (1) Acute respiratory insufficiency: Status: Acute Code(s): R06.89 - Other abnormalities of breathing (2) COPD with acute exacerbation: Status: Chronic Code(s): J44.1 - Chronic obstructive pulmonary disease with (acute) exacerbation Plan #Acute COPD exacerbation in the setting of chronic respiratory failure On 3 L of oxygen which is her baseline. On breathing treatments bronchodilators. On IV Solu-Medrol. Will switch to PO prednisone 40mg daily x 5 days. Titrate oxygen as needed to be to saturation above 90%. Respiratory panel was negative. Currently on cefdinir; to complete a 5 day course. #Acute anemia: Was started on Eliquis during most recent admission for A-fib. No globin is down to around 8. Stool for occult blood pending. Iron panel showed evidence of iron deficiency anemia. Will consult gastroenterology. 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 Hb today is 8.4. #Afib Went into A-fib with RVR overnight. On Coreg and Multaq as well as Cardizem. Also received a dose of digoxin. Heart rate is better controlled today. Eliquis remains on hold and per GI to hold Eliquis till next week 01/02/2025. 2D echo from 10/02/2024 showed EF of 70% with stage I diastolic dysfunction and severe aortic stenosis #Hypokalemia: resolved. K is 4.6 today. # History of non-small cell lung cancer: S/p right lung lobectomy. In remission. #Severe aortic valve stenosis: 2D echo from September 2024 showed severe concentric left ventricular hypertrophy with EF of 70% and stage I diastolic dysfunction. To follow-up at [facility] as scheduled for evaluation for TAVR. On Multaq, Coreg and verapamil. #Hypertension: On Coreg and verapamil. IV hydralazine as needed #History of paroxysmal A-fib: On Coreg and Multaq. Eliquis held in light of anemia. #GERD: On PPI DVT prophylaxis: SCDs Disposition:due to her going into afib with RVR overnight, will watch one more day to ensure she remains stable. FOr likely dc over the next 24-48 hours Medications at Discharge Home Medications albuterol sulfate 90 mcg/actuation aerosol inhaler (Ventolin HFA) 1 - 2 puff inhalation Q4H PRN PRN Bronchodialation 04/18/13 cyclobenzaprine 10 mg tablet 10 mg PO Q12H pain 04/18/13 fluticasone propionate 50 mcg/actuation nasal spray,suspension 1 spray intranasal DAILY nasal congestion 04/18/13 montelukast 10 mg tablet 10 mg PO DAILY allergies 04/18/13 tiotropium bromide 18 mcg capsule with inhalation device (Spiriva with HandiHaler) 1 puff inhalation DAILY wheezing 04/18/13 Oxygen, Home [Home Oxygen] 2.5 lpm PRN PRN Dyspnea 10/22/13 sertraline 100 mg tablet 100 mg PO BID mood 10/22/13 fluticasone 500 mcg-salmeterol 50 mcg/dose blistr powdr for inhalation (Advair Diskus) 1 puff inhalation BID shortness of breath ##1 10/26/13 Ropinirole Hcl 0.25 mg PO QHS restless legs 09/23/14 prednisone 10 mg tablet 15 mg PO QODAY PRN FLARE UPS 04/03/15 ipratropium 0.5 mg-albuterol 3 mg (2.5 mg base)/3 mL nebulization soln 3 ml inhalation Q4HWA.RT wheezing ##30 05/13/16 lorazepam 0.5 mg tablet 0.5 mg PO QHS anxiety #7 tabs 05/05/20 nicotine (polacrilex) 2 mg gum (Nicorette) 2 mg buccal Q2H to stop smoking #20 ea 07/22/23 cholecalciferol (vitamin D3) 50 mcg (2,000 unit) capsule (Vitamin D3) 50 mcg PO DAILY vitamin 10/18/23 ipratropium 0.5 mg-albuterol 3 mg (2.5 mg base)/3 mL nebulization soln 3 ml inhalation Q6H PRN shortness of breath or wheezing #180 mL 10/18/23 buspirone 10 mg tablet 10 mg PO BID anxiety 10/02/24 hydrocodone-acetaminophen 5-325mg 5mg-325mg 1 tab PO BID PRN PRN pain 10/03/24 nicotine 14 mg/24 hr daily transdermal patch 14 mg transdermal DAILY prn #28 ea 10/09/24 apixaban 5 mg tablet (Eliquis) 5 mg PO BID blood thinne #60 tabs 11/03/24 Held on 12/30/24. Instructions: Resume on 01/02/25. hold per GI, until 01/02/2025 carvedilol 6.25 mg tablet 6.25 mg PO BID bp #60 tabs 11/03/24 furosemide 20 mg tablet 20 mg PO DAILY fluid overload 12/27/24 simethicone 250 mg capsule (Gas-X) 250 mg PO BID gas 12/27/24 pantoprazole 40 mg tablet,delayed release 40 mg PO BID #60 tabs 12/30/24 prednisone 20 mg tablet 40 mg (2 x 20 mg) PO DAILY #10 tabs 12/30/24 verapamil 180 mg 24 hr capsule,extended release 180 mg PO BID #60 caps 12/30/24 Hospital Course Operations None Procedures EGD Summary of Care Provided Minutes Spent on Discharge: 45 Hospital Course: Patient is a 69-year-old female with past medical history as outlined was admitted through the ED on 12/26/2024 with a complaint of shortness of breath for about 3 to 4 days prior to admission with associated fatigue and malaise and chest tightness. She was also wheezing. Cough was productive of yellow sputum. She says she was due to have a cardiac cath at [facility] in the next few weeks on account of aortic valve stenosis. On admission she was breathing at 18/min and she was saturating 98% on 3 L of oxygen which was her baseline. Hemoglobin was 9.2. Chest x-ray showed no acute cardiopulmonary pathology. EKG showed no acute ST changes. She was admitted and managed for acute COPD exacerbation. She was started on IV Solu-Medrol and breathing treatments bronchodilators. Hospital course was complicated by a drop in her hemoglobin and iron panel showed severe iron deficiency anemia. Gastroenterology was therefore consulted and she had EGD which showed normal esophagus and hematin in the gastric body as well as oozing gastric ulcers with pigmented material which was treated with a heater probe. She also had 2 nonbleeding angiodysplastic lesions in the duodenum which were treated with a heater probe. She was placed on p.o. pantoprazole. Hospital course was complicated by A-fib with RVR which subsequently resolved and she felt much better. She was discharged home on 12/30/2024. She was discharged on p.o. prednisone 40 mg daily for 5 days as well as p.o. pantoprazole 40 mg twice daily. Patient was on Eliquis for A-fib. Per GI recommendations she was to hold the Eliquis until 01/02/2025. She is follow-up with her primary care doctor and with gastroenterology within 1 to 2 weeks and follow-up with [facility]ology as scheduled for the cardiac cath for her aortic stenosis. Patient seen and examined prior to discharge. She had no active complaints and had an uneventful night. Review of systems otherwise negative. Labs and vitals reviewed. Home medication reviewed and reconciled. Physical Exam Const alert, oriented x3 and no apparent distress General Appearance: cooperative and comfortable HEENT normocephalic, head/scalp atraumatic, hearing grossly normal bilaterally, moist oral mucous membranes and oropharynx normal Mouth: oral and palatal mucosa normal Eyes EOMs intact bilaterally Neck supple and no JVD Lymph Lymphatic: no lymphedema noted Resp Resp Narrative: mildly diminished breath sounds bibasally, no wheezes or crackles. Remains on 3L of oxygen by nasal canula Cardio regular rate, regular rhythm, S1 normal heart sound and S2 normal heart sound Cardio Narrative: grade 3-4 ejection systolic murmur over the aortic valve region GI normal to inspection, nondistended, normoactive bowel sounds, soft to palpation, non-tender and non-distended Extremity normal to inspection, full ROM, normal capillary refill, no clubbing, cyanosis or edema and no calf tenderness General Extremity: no tenderness to palpation of joints or extremities Skin no rashes or lesions noted General Skin Exam: no breakdown Neuro oriented x3, CN's II-XII intact bilaterally, moves all extremities and no focal motor deficits Motor Exam: strength 5/5 throughout and general weakness Psych thought process normal and cooperative Appearance: appropriate Medical Records Data Homelessness:: Sheltered Weight / BMI Weight Weight: 159 lb 13.362 oz Body Mass Index (BMI) 27.4 ABG / Lab / Microbiology Data 12/30/24 04:01 12/30/24 04:01 Laboratory: Laboratory Results - last 24 hr 12/30/24 04:01: WBC 8.0, RBC 3.38 L, Hgb 8.9 L, Hct 28.6 L, MCV 84.6, MCH 26.3 L, MCHC 31.1 L, RDW Std Deviation 42.5, RDW Coeff of Augustin 13.7, Plt Count 212, MPV 9.7, Immature Gran % (Auto) 0.600, Neut % (Auto) 91.0 H, Lymph % (Auto) 5.9 L, [place] % (Auto) 2.5, Eos % (Auto) 0.0, Baso % (Auto) 0.0, Absolute Neuts (auto) 7.3, Absolute Lymphs (auto) 0.47 L, Nucleated RBC % 0, Sodium 141, Potassium 4.7, Chloride 95 L, Carbon Dioxide 37.3 H, Anion Gap 9, BUN 16, Creatinine 0.51 L, Estim Creat Clear Calc 65.36, Est GFR (MDRD) Non-Af 101, BUN/Creatinine Ratio 31.0 H, Glucose 124 H, Calcium 8.5 Microbiology: Microbiology 12/26/24 21:26 Sputum, Expectorated/Coughed Gram Stain - Final 12/26/24 21:26 Sputum, Expectorated/Coughed Respiratory Culture - Final 12/26/24 20:48 Mucosa - Nasopharyngeal Respiratory Panel (PCR) - Final D/C Instructions Discharge Activity: Return to Normal Activity Weight Bearing Status: Weight bearing as tolerated Call your doctor if you observe: Fever of 101 or Higher, Shortness of breath, Dizziness, Swelling in the ankles, Chest pain and Increased palpitations (irregular heartbeat) DC O2, CPAP, BIPAP Needs Home O2 Discharge instructions: Yes Type of respiratory needs?: Oxygen Oxygen frequency: Continuous Continuous oxygen liters per minute: 3 DC home with Oxygen: Yes Home O2 MD Review: I have reviewed the oxygen testing, and the patient qualifies for home oxygen equipment and portability. The patient is mobile in the home and the community. Meaningful Use Info Meaningful Use Meaningful Use Diagnoses (Choose all that apply): None applicable Discharge Plan Admission Admit Date/Time: 12/26/24 20:00 Primary Reason for Your Visit: COPD exacerbation, acute on chronic anemia Attending Provider: Lynne Schafer Primary Care Provider: Arnulfo Fall Consulting Providers: Dionne Porter; Stacy Jha; Alessandro Palma; Kyle Mendenhall; Elma Mendez; Mercedez Joseph; Jackie Henry Instructions Patient Instructions: Anemia, COPD Controlled Breathing Dc Discharge Orders/Prescriptions Prescriptions: New pantoprazole 40 mg tablet,delayed release (DR/EC) 40 mg PO BID Qty: 60 2RF prednisone 20 mg tablet 40 mg PO DAILY Qty: 10 0RF verapamil 180 mg Capsule,Ext Rel. Pellets 24 Hr 180 mg PO BID Qty: 60 2RF Continued carvedilol 6.25 mg tablet 6.25 mg PO BID Qty: 60 11RF Rx Instructions: must administer with a meal/food cyclobenzaprine 10 MG tablet 10 mg PO Q12H 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 montelukast 10 MG tablet 10 mg PO DAILY Patient Comments: ANTI-HISTAMINE albuterol sulfate [Ventolin HFA] 1 INHALER inhaler 1 - 2 puff inhalation Q4H PRN PRN (Reason: Bronchodialation) Patient Comments: COPD/SHORTNESS OF BREATH fluticasone propionate 1 SPRAY spray,suspension 1 spray intranasal DAILY Patient Comments: NASAL SPRAY TO HELP CONGESTION tiotropium bromide [Spiriva with HandiHaler] 1 PUFF inhaler 1 puff inhalation DAILY Patient Comments: INHALER FOR COPD sertraline 100 MG tablet 100 mg PO BID Patient Comments: mood enhancement Oxygen, Home [Home Oxygen] 2.5 lpm NASAL PRN PRN (Reason: Dyspnea) Patient Comments: oxygen fluticasone propion-salmeterol [Advair Diskus] 1 PUFF inhaler 1 puff inhalation BID Qty: 1 0RF Patient Comments: nasal congestion Ropinirole Hcl 0.25 MG tablet 0.25 mg PO QHS Patient Comments: restless legs prednisone 10 MG tablet 15 mg PO QODAY PRN (Reason: FLARE UPS) Patient Comments: steroid for inflammation ipratropium-albuterol 3 ML solution for nebulization 3 ml inhalation Q4HWA.RT Qty: 30 0RF lorazepam 0.5 MG tablet 0.5 mg PO QHS Qty: 7 0RF nicotine (polacrilex) [Nicorette] 2 mg gum 2 mg buccal Q2H Qty: 20 0RF cholecalciferol (vitamin D3) [Vitamin D3] 50 mcg (2,000 unit) capsule 50 mcg PO DAILY ipratropium-albuterol 0.5 mg-3 mg(2.5 mg base)/3 mL solution for nebulization 3 ml inhalation Q6H PRN (Reason: shortness of breath or wheezing) Qty: 180 0RF buspirone 10 mg tablet 10 mg PO BID hydrocodone-acetaminophen 5-325 mg tablet 1 tab PO BID PRN PRN (Reason: pain) nicotine 14 mg/24 hr Patch 24 Hour 14 mg transdermal DAILY Qty: 28 0RF furosemide 20 mg tablet 20 mg PO DAILY Gas-X 250 mg capsule 250 mg PO BID Held Eliquis 5 mg tablet 5 mg PO BID Qty: 60 11RF Hold Instructions: Resume on 01/02/25. hold per GI, until 01/02/2025 Rx Instructions: Discontinue if platelet count drops less than 50,000 or hemoglobin less than 8 g% Discontinued omeprazole 20 MG capsule 20 mg PO DAILY Patient Comments: ACID REFLUX MEDICATION Referrals / Follow Up: Arnulfo Fall MD [Primary Care Provider] - Within 1 Week Kyle Mendenhall DO [Med Staff - Active Staff] - Within 1 Week Disposition Disposition (needs filled in before D/C Order can be placed): Home Health Service Charges/Coding Visit Charges Inpatient E&M: 40501 Disch Hosp >30min
[2024-12-30 12:30] VITALS: O2SAT 94; O2SAT 96
[2024-12-30 13:09] VITALS: BP 108/52; PULSE 91; RESP 18; TEMP 36.7; O2SAT 99
== END 2024-12-30 13:27 | disposition home health service (06) | DRG 190 ==
LOC: ED 20:07 → PCU 20:26
PROVIDERS: Anesthesiology; Internal Medicine Gastroenterology; Admitting Provider Family Medicine; Emergency Provider Emergency Medicine; PCP Family Medicine; Visit Provider Student in an Organized Health Care Education/Training Program
PROC: 0DJ08ZZ Inspection of Upper Intestinal Tract, Via Natural or Artificial Opening Endoscopic (ICD-10-PCS; CPT 43235; principal; 2024-12-28 10:10)
DX: J44.1 Chronic obstructive pulmonary disease with (acute) exacerbation (principal); K25.4 Chronic or unspecified gastric ulcer with hemorrhage; D68.32 Hemorrhagic disorder due to extrinsic circulating anticoagulants; D62 Acute posthemorrhagic anemia; J96.11 Chronic respiratory failure with hypoxia; G25.81 Restless legs syndrome; I48.0 Paroxysmal atrial fibrillation; I10 Essential (primary) hypertension; I35.0 Nonrheumatic aortic (valve) stenosis; F32.A Depression, unspecified; E87.6 Hypokalemia; K31.819 Angiodysplasia of stomach and duodenum without bleeding; K21.9 Gastro-esophageal reflux disease without esophagitis; F41.9 Anxiety disorder, unspecified; Z99.81 Dependence on supplemental oxygen; T45.515A Adverse effect of anticoagulants, initial encounter; Z79.01 Long term (current) use of anticoagulants; Z79.51 Long term (current) use of inhaled steroids; Z79.899 Other long term (current) drug therapy; Z85.118 Personal history of other malignant neoplasm of bronchus and lung; Z87.891 Personal history of nicotine dependence
CPT/HCPCS: 36415; 36600; 71045; 80048; 80053; 82728; 82803; 83540; 83550; 83735; 84145; 84484; 85014; 85018; 85025; 87070; 87205; 87633; 93005; 94640; 94667; 94668; 94760; 99285; C1889; A4216; J2405

== ENCOUNTER → 2025-01-12 | Outpatient (CLI) | payer MEDICARE, MEDICAID, SELFPAY ==
[2025-01-12 13:06] LABS: Anion Gap 10 (5-15); BUN 14 mg/dL (4-19); BUN/Creat Ratio 24.6 RATIO (10-20); Calcium,Total 8.6 mg/dL (7.6-11.0); Carbon Dioxide 40.6 mmol/L (21.0-32.0); Chloride 90 mmol/L (98-108); Glucose 87 mg/dL (70-99); Potassium 3.8 mmol/L (3.3-5.1)
== END | disposition home or self-care (01) ==
LOC: LABSPEC 10:42 → HHLAB 13:09
PROVIDERS: PCP Family Medicine; Visit Provider Internal Medicine Interventional Cardiology
DX: I35.0 Nonrheumatic aortic (valve) stenosis (principal)
CPT/HCPCS: 80048

== ENCOUNTER 2025-01-25 08:24 | Inpatient (IN) | payer MEDICARE, MEDICAID, SELFPAY ==
[2025-01-25] VITALS (30 sets, daily range): BP systolic 96–174; BP diastolic 52–139; PULSE 79–115; RESP 12–25; TEMP 36.4–38.5; O2SAT 90–100; BMI 28.2; BMI 27.8
--- NOTE | 2025-01-25 08:28 | EKG12_ITS ---
Test Reason : SOB Blood Pressure : */* mmHG Vent. Rate : 110 BPM Atrial Rate : 110 BPM P-R Int : 160 ms QRS Dur : 84 ms QT Int : 380 ms P-R-T Axes : 82 59 74 degrees QTcB Int : 514 ms Sinus tachycardia with Premature atrial complexes Right atrial enlargement Minimal voltage criteria for LVH, may be normal variant ( Sokolow-Martins ) Prolonged QT Abnormal ECG Confirmed by GAVIN OWEN, ELINA ([id number]), image editor MAGALIE RAMIREZ ([id number]) on 01/29/2025 6:00:04 AM Referred By: Confirmed By: ELINA ALONSO MD
--- NOTE | 2025-01-25 08:30 | CPS ---
Patient not tolerating BiPAP mask, RN at bedside and DR arcos.
[2025-01-25 08:37] LABS: Hematocrit 28.8 % (37-47); Hemoglobin 8.4 g/dL (12.0-15.0); Immature Granulocytes Count 0.090 X10^3/uL (0.0-0.0); Mean Corp Hgb Conc 29.2 g/dL (32-36); Mean Corpuscular Volume 81.8 fL (81-99); Mean Platelet Vol. 10.5 fl (6.2-12.0); NRBC Flagged by Analyzer 0 % (0-5); Platelet Count 315 K/mm3 (150-450); RBC Distribution Width CV 13.6 % (11.6-14.6); RBC Distribution Width SD 40.7 fl (35.1-43.9); Red Blood Count 3.52 M/mm3 (4.2-5.4); White Blood Count 12.2 K/mm3 (4.4-11.0)
--- NOTE | 2025-01-25 08:46 | CT_ITS ---
PROCEDURE: BRAIN/HEAD WITHOUT CONTRAST 01/25/2025 REASON FOR EXAM: AMS TECHNIQUE: Procedure Code: CTBR Modality: CT Procedure: BRAIN/HEAD WITHOUT CONTRAST Coronal and Sagittal reconstruction series were provided. One or more dose reduction techniques were used (e.g., Automated exposure control, adjustment of the mA and/or kV according to patient size, use of iterative reconstruction technique. RADIATION DOSE SUMMARY: CTDlvol: 44.99 mGy DLP: 829.85 mGycm COMPARISON: None FINDINGS: Brain: Age consistent periventricular and deep white matter changes without acute intracranial hemorrhage, midline shift or mass effect. No suspicious pattern of edema. CSF Spaces: Normal for age Sinuses/Mastoids: Clear at visualized levels Bones: No skull fracture or scalp hematoma CT/Brain/Head without Contrast IMPRESSION: CHRONIC CHANGES. NO ACUTE FINDINGS. Reading Location: [id number]
--- NOTE | 2025-01-25 08:47 | ED.VIS.DYS ---
HPI History of Present Illness Chief Complaint: Shortness of Breath Informant: patient Narrative Narrative: Patient is a 69-year-old female with history of chronic respiratory failure on 3 L of oxygen at baseline, COPD, atrial fibrillation (on Eliquis) GI bleed last month, hypertension and anxiety/depression presenting with worsening shortness of breath. Per EMS reports patient actually called at 5:30 AM and then refused transport. They were called out again and transported her. They note she was 91% on 4 L when I got her to the cot. They gave her a DuoNeb and route. A couple minutes prior to arrival EMS states she stopped answering questions and was not talk anymore. Upon arrival to the emergency room patient is breathing quickly and is nonverbal. She is not following any commands and is trying to pull off her nonrebreather. Attempted BiPAP as I suspect patient has acute decompensated respiratory failure and likely hypercapnic (end-tidal CO2 is elevated) however patient is not tolerating this. Decision made to intubate for respiratory distress/failure. Attempted to call her significant other Mike as well as son who is listed in the chart but was unable to speak with anyone. After intubation?see procedure notes, patient's significant other Mike did call back. He states she has been having worsening respiratory symptoms for too long it sounds like it been a week or 2 ago. She has been refusing to come to the emergency room for evaluation of this. He notes that she did have a heart cath 3 weeks ago at [facility]. He is not sure if she is still on her Eliquis or not. No other information obtained at this time. He understand that she will need admission to the ICU. [facility] Medical History Palliative care encounter Acute anemia Acute respiratory insufficiency Anxiety Anxiety and depression Respiratory insufficiency COPD with acute exacerbation Afib Aortic valve stenosis RLS (restless legs syndrome) History of ETOH abuse Chronic hypoxic respiratory failure, on home oxygen therapy COPD (chronic obstructive pulmonary disease) Anxiety Depression Smoker Asthma Hypertension Migraines Home Medications ?Medication ?Instructions ?Recorded ?Last Taken ?Type albuterol sulfate 90 mcg/actuation 1 - 2 puff inhalation Q4H PRN PRN 04/18/13 09/23/14 History aerosol inhaler (Ventolin HFA) Bronchodialation cyclobenzaprine 10 mg tablet 10 mg PO Q12H pain 04/18/13 09/23/14 History 10 MG fluticasone propionate 50 1 spray intranasal DAILY nasal 04/18/13 09/23/14 History mcg/actuation nasal congestion spray,suspension montelukast 10 mg tablet 10 mg PO DAILY allergies 04/18/13 09/23/14 History 10 MG tiotropium bromide 18 mcg capsule 1 puff inhalation DAILY wheezing 04/18/13 09/23/14 History with inhalation device (Spiriva with HandiHaler) Oxygen, Home [Home Oxygen] 2.5 lpm PRN PRN Dyspnea 10/22/13 09/23/14 History sertraline 100 mg tablet 100 mg PO BID mood 10/22/13 09/23/14 History fluticasone 500 mcg-salmeterol 50 1 puff inhalation BID shortness of 10/26/13 09/23/14 Rx mcg/dose blistr powdr for breath ##1 inhalation (Advair Diskus) Ropinirole Hcl 0.25 mg PO QHS restless legs 09/23/14 Unknown History prednisone 10 mg tablet 15 mg PO QODAY PRN FLARE UPS 04/03/15 Unknown History ipratropium 0.5 mg-albuterol 3 mg 3 ml inhalation Q4HWA.RT wheezing 05/13/16 Unknown Rx (2.5 mg base)/3 mL nebulization ##30 soln lorazepam 0.5 mg tablet 0.5 mg PO QHS anxiety #7 tabs 05/05/20 Unknown Rx nicotine (polacrilex) 2 mg gum 2 mg buccal Q2H to stop smoking 07/22/23 Unknown Rx (Nicorette) #20 ea cholecalciferol (vitamin D3) 50 50 mcg PO DAILY vitamin 10/18/23 Unknown History mcg (2,000 unit) capsule (Vitamin D3) ipratropium 0.5 mg-albuterol 3 mg 3 ml inhalation Q6H PRN shortness 10/18/23 Unknown Rx (2.5 mg base)/3 mL nebulization of breath or wheezing #180 mL soln buspirone 10 mg tablet 10 mg PO BID anxiety 10/02/24 Unknown History hydrocodone-acetaminophen 5-325mg 1 tab PO BID PRN PRN pain 10/03/24 Unknown History 5mg-325mg nicotine 14 mg/24 hr daily 14 mg transdermal DAILY prn #28 ea 10/09/24 Unknown Rx transdermal patch apixaban 5 mg tablet (Eliquis) 5 mg PO BID blood thinne #60 tabs 11/03/24 Unknown Rx Held on 12/30/24. Instructions: Resume on 01/02/25. hold per GI, until 01/02/2025 carvedilol 6.25 mg tablet 6.25 mg PO BID bp #60 tabs 11/03/24 Unknown Rx furosemide 20 mg tablet 20 mg PO DAILY fluid overload 12/27/24 Unknown History simethicone 250 mg capsule (Gas-X) 250 mg PO BID gas 12/27/24 Unknown History pantoprazole 40 mg tablet,delayed 40 mg PO BID #60 tabs 12/30/24 Unknown Rx release prednisone 20 mg tablet 40 mg (2 x 20 mg) PO DAILY #10 tabs 12/30/24 Unknown Rx verapamil 180 mg 24 hr 180 mg PO BID #60 caps 12/30/24 Unknown Rx capsule,extended release Allergy/AdvReac Type Severity Reaction Status Date / Time No Known Allergies Allergy Verified 01/25/25 08:25 Family History Mother Hypertension Throat cancer Father Hypertension Stomach cancer Surgical History H/O exploratory laparotomy History of lung surgery History of cholecystectomy Social History household members: significant other and none housing: apartment Smoking Status: Former smoker alcohol intake: former substance use type: does not use ROS ROS ED Review of Systems ROS Unobtainable: due to mental status EXAM Physical Exam Const Vital Signs: 01/25/25 08:25 01/25/25 08:28 01/25/25 08:30 Temperature 97.6 F L Temperature Source Temporal Pulse Rate 115 H Respiratory Rate 25 H Respiratory Effort Respiratory Depth Respiratory Pattern Blood Pressure 174/139 H Blood Pressure Mean 150 Pulse Ox 96 Oxygen Delivery Method Nasal Cannula Nasal Cannula Oxygen Flow Rate (L/min) Fraction of Inspired Oxygen (FIO2) 40 01/25/25 08:38 01/25/25 08:45 01/25/25 08:54 Temperature Temperature Source Pulse Rate Respiratory Rate Respiratory Effort Short of Breath Labored Accessory Muscle Use Head Bobbing Respiratory Depth Shallow Respiratory Pattern Tachypnea Blood Pressure Blood Pressure Mean Pulse Ox Oxygen Delivery Method Oxygen Flow Rate (L/min) Fraction of Inspired Oxygen (FIO2) 100 100 01/25/25 09:04 01/25/25 09:10 01/25/25 09:24 Temperature Temperature Source Pulse Rate 111 H 103 H Respiratory Rate 16 16 Respiratory Effort Short of Breath Labored Respiratory Depth Respiratory Pattern Tachypnea Blood Pressure 142/77 H Blood Pressure Mean 98 Pulse Ox 100 Oxygen Delivery Method Nasal Cannula Mechanical Ventilator Oxygen Flow Rate (L/min) 8 Fraction of Inspired Oxygen (FIO2) 01/25/25 09:33 01/25/25 10:00 01/25/25 10:22 Temperature 100.4 F H 100.6 F H Temperature Source Core Pulse Rate 109 H 96 104 H Respiratory Rate 16 16 16 Respiratory Effort Respiratory Depth Respiratory Pattern Blood Pressure 134/73 H 111/88 H Blood Pressure Mean 93 95 Pulse Ox 100 95 95 Oxygen Delivery Method Mechanical Ventilator Oxygen Flow Rate (L/min) Fraction of Inspired Oxygen (FIO2) 40 01/25/25 10:22 Temperature 100.6 F H Temperature Source Core Pulse Rate 100 Respiratory Rate 16 Respiratory Effort Respiratory Depth Respiratory Pattern Blood Pressure 111/88 H Blood Pressure Mean 95 Pulse Ox 95 Oxygen Delivery Method Mechanical Ventilator Oxygen Flow Rate (L/min) Fraction of Inspired Oxygen (FIO2) Positive well nourished, well developed and unkempt Constitutional Narrative: Patient in acute respiratory distress General Appearance ED: unkempt and well developed HEENT Reports dry mucous membranes HEENT Narrative: Edentulous on the top teeth. atraumatic Mouth ED: Yes dry mucous membranes Mouth: dry mucous membranes Eyes EOMs intact bilaterally Neck supple and no JVD Resp Resp Narrative: Tachypneic. Wheezing throughout. Diminished breath sounds with shallow respirations Cardio regular rate Rate: tachycardic GI non-tender and non-distended Extremity Extremity Narrative: Pedal edema of the left lower extremity, pitting. This is asymmetric from the right. Unsure about chronicity. Neuro Pilar Coma Scale: document GCS findings Spontaneous Withdraws to Pain Incomprehensible 10 Sensorium / Orientation: alert Motor Exam: general weakness Psych Appearance: unkempt Skin Skin Narrative: Scattered ecchymosis on the abdomen and arms consistent with prior injections or IVs MDM MDM MDM Narrative Medical decision making narrative: Patient evaluated for worsening respiratory symptoms. Upon arrival to the ER is obtunded. Suspect she is in acute respiratory failure and has impending respiratory collapse. Attempted BiPAP however she did not tolerate this. Decision made to intubate. Just prior to intubation patient has decreased respiratory rate and is bagged. Intubation performed, see procedure notes, without any immediate complications. Once patient sedated will obtain workup looking for cause of her respiratory failure which includes not limited to intracranial hemorrhage, symptomatic anemia, pneumonia, COPD exacerbation and pulmonary emboli (unclear if patient's been compliant with her Eliquis). Was able to speak with significant other and understand that she is intubated and will need admission to an ICU. Patient given broad-spectrum antibiotics (Rocephin and azithromycin) empirically for concern for pneumonia. Was given Solu-Medrol as clinically I suspect this is a COPD exacerbation. X-ray viewed by myself shows some mild pulmonary vascular congestion with small effusion of the right side. ET tube at the level of the aortic arch. NG tube appears to be in appropriate position. Chart review?discharge summary from reviewed. Patient was post to restart her Eliquis on 01/02. Was discharged with a prednisone taper for COPD exacerbation. 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 She is following up with [facility] for her severe concentric left ventricular hypertrophy EF of 70% stage I diastolic dysfunction and severe aortic valve stenosis. Patient is she started propofol drip for sedation. Does require Versed with improved blood pressure and heart rates. Seems more comfortable. Workup most consistent with likely COPD exacerbation and possible underlying pneumonia. Is given broad-spectrum antibiotics as well as Solu-Medrol. Case discussed with hospitalist for admission, Dr. Palma. Also discussed the case with hay sorter. While in the ICU patient's does develop a fever of 100.6-100.8. Is given rectal Tylenol for this. This is consistent with concern for pneumonia. Case is discussed with Dr. Guzmán. He states life she will likely need broader antibiotics as she has grown out Pseudomonas in the past. Lab Data Attestation: I reviewed the patient's lab results. Labs: Laboratory Results - last 24 hr 01/25/25 01/25/25 08:15 08:40 WBC 12.2 H RBC 3.52 L Hgb 8.4 L Hct 28.8 L MCV 81.8 MCH 23.9 L MCHC 29.2 L RDW Std Deviation 40.7 RDW Coeff of Augustin 13.6 Plt Count 315 MPV 10.5 Immature Gran % (Auto) 0.700 Neut % (Auto) 74.3 H Lymph % (Auto) 12.5 L [place] % (Auto) 11.0 H Eos % (Auto) 1.3 Baso % (Auto) 0.2 Absolute Neuts (auto) 9.1 H Absolute Lymphs (auto) 1.53 Nucleated RBC % 0 Sodium 137 Potassium 3.5 Chloride 84 L Carbon Dioxide 44.1 H Anion Gap 9 BUN 31 H Creatinine 0.63 L Estim Creat Clear Calc 65.65 Est GFR (MDRD) Non-Af 96 BUN/Creatinine Ratio 48.1 H Glucose 115 H Lactic Acid 1.9 Calcium 9.0 Total Creatine Kinase 77 Troponin T High Sens 38 H D NT pro BNP II 1192 H Triglycerides 135 Radiography Chest X-Ray - ED: 1 View, Read by ED Physician and Read by Radiologist Diagnostic Testing: Clinical Impression(s) from Imaging Studies Brain CT 01/25/25 08:46 IMPRESSION: CHRONIC CHANGES. NO ACUTE FINDINGS. Reading Location: [facility] Chest CTA 01/25/25 08:51 IMPRESSION: No demonstrated PE, however, the contrast bolus within the pulmonary arteries is not optimal and a subtle filling defect could be present and overlooked particularly in the distal pulmonary artery branches No thoracic aortic aneurysm or dissection Emphysema with chronic interstitial changes, nonspecific pleural thickening in both hemithoraces, subsegmental atelectasis, and multifocal pneumonitis ET tube is 1 cm above the kaylan and should be pulled back 2-3 cm NG tube tip in the body of the stomach Degenerative bony changes Hiatal hernia with evidence of GE reflux Fatty liver Simple renal cysts, no specific follow-up needed Reading Location: [facility] Chest X-Ray 01/25/25 09:00 IMPRESSION: Tubes and lines in position. There are interstitial infiltrates throughout the right mid and lower lung and left lingular segment. There are trace bilateral effusions. [facility] Rhythm Strip Rhythm Strip: Sinus Tach Rate: 110 Ectopy: PAC(s) EKG Initial EKG: Attestation: I personally reviewed and interpreted this EKG as follows: Interpretation: Sinus Tachycardia Comments: Sinus tachycardia at a rate of 110 bpm with PACs Normal axis Right atrial enlargement Minimal voltage criteria for LVH Normal ST segments Compared to prior EKG on 01/18 patient is no longer in atrial fibrillation Prior EKG tracings: available for review Management Discussion w/another healthcare provider: Hospitalist and Washcloth Folder Procedures Intubations Intubation Method: orotracheal (7.5 ET tube. 22 at the lip.) Intubation Verification: Positive color change and Bilateral breath sounds confirmed Intubation Complications: no complications Procedural Sedation 1 (Initial Baseline): Consent Signed: No (Emergent) Sedation medication: Etomidate Dose: 20 Route: IV Maliampati Score: Class III ASA Classification: IV Comment:: 60 mg rocuronium also given Critical Care Time Critical Care Time: Yes Critical care time (excluding procedures): 30-74 minutes (47), Discussing w/Patient &/or Family/Marine Architect, Discussing w/Consultants, Arranging Admission or Transfer and Performing Direct Patient Care at Bedside Discharge Plan Dx/Rx/DC Orders Clinical Impression: Acute respiratory failure, Tachycardia, Aortic valve stenosis, Anticoagulated on apixaban, Pneumonia, Chronic anemia Disposition Disposition: [facility]
--- NOTE | 2025-01-25 08:51 | CT_ITS ---
PROCEDURE: CTA CHEST W/WO CONTRAST 01/25/2025 REASON FOR EXAM: RESPIRATORY FAILURE TECHNIQUE: Procedure Code: [id number] Modality: CT Procedure: CTA CHEST W/WO CONTRAST Multiplanar Sagittal and Coronal images were obtained. CONTRAST: Isovue 370 VOLUME: 100 mL One or more dose reduction techniques were used (e.g., Automated exposure control, adjustment of the mA and/or kV according to patient size, use of iterative reconstruction technique). RADIATION DOSE SUMMARY: CTDlvol: 17.22 mGy DLP: 528.84 mGycm COMPARISON: None # of known CTs in the past 12 months: 0 # of known Cardiac Nuclear Medicine Studies in the past 12 months: 0 FINDINGS: Patient is intubated, tip of the ET tube is 1 cm above the kaylan and could be pulled back 2-3 cm. NG tube tip in the body of the stomach Thoracic Aorta: Peripheral calcifications without aneurysm or dissection. The contrast bolus within the pulmonary arteries is not optimal. No filling defects are noted within the pulmonary arteries however, a subtle filling defect could be present and overlooked, particularly in the distal vessels. Soft tissue windows do not show evidence of thyroid abnormality. No suspicious axillary, mediastinal or perihilar adenopathy. There are calcified coronary vessels. Limited cuts through the upper abdomen show a small hiatal hernia with thickening of the distal esophagus suggesting reflux esophagitis. There is diffuse fatty infiltration of the liver, evidence of previous cholecystectomy and simple cortical cysts in the kidneys. Bony structures show degenerative change. Lung windows show underlying emphysema with chronic interstitial changes, patchy airspace opacifications suggesting multifocal pneumonitis. There is subsegmental atelectasis in the lingula and medial aspect of the right upper lobe. No organized infiltrate or effusion. No suspicious noncalcified mass or nodule. CT/CTA Chest W/WO Contrast IMPRESSION: No demonstrated PE, however, the contrast bolus within the pulmonary arteries i s not optimal and a subtle filling defect could be present and overlooked particularly in the distal pulmonary artery branches No thoracic aortic aneurysm or dissection Emphysema with chronic interstitial changes, nonspecific pleural thickening in both hemithoraces, subsegmental atelectasis, and multifocal pneumonitis ET tube is 1 cm above the kaylan and should be pulled back 2-3 cm NG tube tip in the body of the stomach Degenerative bony changes Hiatal hernia with evidence of GE reflux Fatty liver Simple renal cysts, no specific follow-up needed Reading Location: [id number]
[2025-01-25] MEDS: Albuterol 2.5 MG/3 ML VIAL.NEB. INHALATION ×2 (08:56→08:57)
[2025-01-25] MEDS: Propofol 10MG/Ml 1,000 MG/100 ML Bottle 4.5 MG CONT INF (08:56)
[2025-01-25 09:00] LABS: Anion Gap 9 (5-15); BUN 31 mg/dL (4-19); BUN/Creat Ratio 48.1 RATIO (10-20); Calcium,Total 9.0 mg/dL (7.6-11.0); Carbon Dioxide 44.1 mmol/L (21.0-32.0); Chloride 84 mmol/L (98-108); Estimated Creatinine Clearance 65.65 ml/min (50-250); Glucose 115 mg/dL (70-99); Potassium 3.5 mmol/L (3.3-5.1)
--- NOTE | 2025-01-25 09:00 | RAD_ITS ---
PROCEDURE: CHEST 1 VIEW (PORTABLE) 01/25/2025 REASON FOR EXAM: SOB TECHNIQUE: Frontal view of the chest. COMPARISON: December 26, 2024 FINDINGS: There is an enteric tube seen with its tip in the stomach. There is an ET tube with its tip 5 cm above the level of the kaylan. Heart size is upper normal. Central vascularity appears increased. There are interstitial infiltrates throughout the right mid and lower lung and left lingular segment. There are trace bilateral effusions. Aortic calcifications are noted. RAD/Chest 1 View (Portable) IMPRESSION: Tubes and lines in position. There are interstitial infiltrates throughout the right mid and lower lung and left lingular segment. There are trace bilateral effusions. Reading Location: [facility]
[2025-01-25 09:01] LABS: Pro- Brain NATRIURETIC PEPTIDE 1192 pg/mL (<=900); Troponin T High Sensitivity 38 ng/L (<=14)
[2025-01-25] MEDS: Midazolam 2 MG/2 ML Syringe IV (09:24)
[2025-01-25 09:32] LABS: CPK Total, Creatine Kinase 77 U/L (24-195); Triglycerides 135 mg/dL
[2025-01-25] MEDS: Midazolam 50 MG in 0.9% Normal Saline (100mL Bag) 90 ML CONT INF (10:03)
--- NOTE | 2025-01-25 10:04 | PCM.HP.STD ---
HPI - General General Date of Admission: 01/25/25 Date of Service: 01/25/25 Chief Complaint: Progressive worsening shortness of breath for 2 weeks HPI Narrative DENIA MARC, is a 69 F came to ED with worsening shortness of breath and when she reached ER she stopped answering question and was not talking, fast and shallow breathing and nonverbal. ED physician tried to put on BiPAP but she could not tolerate and not following commands therefore was intubated emergently. Therefore, the history was mainly from EMS and ED physician. Initially she refused for EMS transfer to ER at 530 but later on it was called out again and transported. Usually she is on 3 L of baseline oxygen with history of COPD and atrial fibrillation on Eliquis. In around EMS gave DuoNeb. As per EMS twelve-lead EKG A-fib at 105/min. As per EMS report, patient had shortness of breath and chest pain. She has worsening of shortness of breath for 2 weeks after her cardiac cath procedure. I think she is being worked up for TAVR in [place]. She was working hard on her breathing and oxygen was turned for later. Patient was more irritable during transport and then he stopped verbalizing few blocks away from the hospital. Social history: She has 30 pack years of smoking. Reported quit recently by . Significant anxiety and panic attack. [facility] Medical History Palliative care encounter Acute anemia Acute respiratory insufficiency Anxiety Anxiety and depression Respiratory insufficiency COPD with acute exacerbation Afib Aortic valve stenosis RLS (restless legs syndrome) History of ETOH abuse Chronic hypoxic respiratory failure, on home oxygen therapy COPD (chronic obstructive pulmonary disease) Anxiety Depression Smoker Asthma Hypertension Migraines Home Medications ?Medication ?Instructions ?Recorded ?Last Taken ?Type albuterol sulfate 90 mcg/actuation 1 - 2 puff inhalation Q4H PRN PRN 04/18/13 09/23/14 History aerosol inhaler (Ventolin HFA) Bronchodialation cyclobenzaprine 10 mg tablet 10 mg PO Q12H pain 04/18/13 09/23/14 History 10 MG montelukast 10 mg tablet 10 mg PO DAILY allergies 04/18/13 09/23/14 History 10 MG tiotropium bromide 18 mcg capsule 1 puff inhalation DAILY wheezing 04/18/13 09/23/14 History with inhalation device (Spiriva with HandiHaler) Oxygen, Home [Home Oxygen] 2.5 lpm PRN PRN Dyspnea 10/22/13 09/23/14 History sertraline 100 mg tablet 100 mg PO BID mood 10/22/13 09/23/14 History fluticasone 500 mcg-salmeterol 50 1 puff inhalation BID shortness of 10/26/13 09/23/14 Rx mcg/dose blistr powdr for breath ##1 inhalation (Advair Diskus) Ropinirole Hcl 0.25 mg PO QHS restless legs 09/23/14 Unknown History prednisone 10 mg tablet 15 mg PO QODAY PRN FLARE UPS 04/03/15 Unknown History ipratropium 0.5 mg-albuterol 3 mg 3 ml inhalation Q4HWA.RT wheezing 05/13/16 Unknown Rx (2.5 mg base)/3 mL nebulization ##30 soln cholecalciferol (vitamin D3) 50 50 mcg PO DAILY vitamin 10/18/23 Unknown History mcg (2,000 unit) capsule (Vitamin D3) ipratropium 0.5 mg-albuterol 3 mg 3 ml inhalation Q6H PRN shortness 10/18/23 Unknown Rx (2.5 mg base)/3 mL nebulization of breath or wheezing #180 mL soln buspirone 10 mg tablet 10 mg PO BID anxiety 10/02/24 Unknown History hydrocodone-acetaminophen 5-325mg 1 tab PO BID PRN PRN pain 10/03/24 Unknown History 5mg-325mg nicotine 14 mg/24 hr daily 14 mg transdermal DAILY prn #28 ea 10/09/24 Unknown Rx transdermal patch apixaban 5 mg tablet (Eliquis) 5 mg PO BID blood thinne #60 tabs 11/03/24 Unknown Rx carvedilol 6.25 mg tablet 6.25 mg PO BID bp #60 tabs 11/03/24 Unknown Rx furosemide 20 mg tablet 20 mg PO DAILY fluid overload 12/27/24 Unknown History pantoprazole 40 mg tablet,delayed 40 mg PO BID GERD #60 tabs 12/30/24 Unknown Rx release verapamil 180 mg 24 hr 180 mg PO BID #60 caps 12/30/24 Unknown Rx capsule,extended release dronedarone 400 mg tablet (Multaq) 400 mg PO BID 01/25/25 Unknown History Allergy/AdvReac Type Severity Reaction Status Date / Time No Known Allergies Allergy Verified 01/25/25 08:25 Family History Mother Hypertension Throat cancer Father Hypertension Stomach cancer Surgical History H/O exploratory laparotomy History of lung surgery History of cholecystectomy Social History household members: significant other and none housing: apartment Smoking Status: Former smoker alcohol intake: former substance use type: does not use Vital Signs Vital Signs Vital Signs: 01/25/25 08:25 01/25/25 08:28 01/25/25 08:38 Temperature 97.6 F L Temperature Source Temporal Pulse Rate 115 H Respiratory Rate 25 H Respiratory Effort Short of Breath Labored Accessory Muscle Use Head Bobbing Respiratory Depth Shallow Respiratory Pattern Tachypnea Blood Pressure 174/139 H Blood Pressure Mean 150 Pulse Ox 96 Oxygen Delivery Method Nasal Cannula Nasal Cannula Oxygen Flow Rate (L/min) Fraction of Inspired Oxygen (FIO2) 01/25/25 08:45 01/25/25 09:04 01/25/25 09:10 Temperature Temperature Source Pulse Rate 111 H Respiratory Rate 16 Respiratory Effort Short of Breath Labored Respiratory Depth Respiratory Pattern Tachypnea Blood Pressure Blood Pressure Mean Pulse Ox Oxygen Delivery Method Nasal Cannula Oxygen Flow Rate (L/min) 8 Fraction of Inspired Oxygen (FIO2) 100 01/25/25 09:24 Temperature Temperature Source Pulse Rate 103 H Respiratory Rate 16 Respiratory Effort Respiratory Depth Respiratory Pattern Blood Pressure 142/77 H Blood Pressure Mean 98 Pulse Ox 100 Oxygen Delivery Method Mechanical Ventilator Oxygen Flow Rate (L/min) Fraction of Inspired Oxygen (FIO2) Weight Weight: 164 lb 7.437 oz Body Mass Index (BMI) 28.2 Physical Exam Narrative Seen and examined. Patient is sedated on propofol and fentanyl. On ventilator. Physical exam General: Sedated HEENT: Atraumatic, PERRLA, EOMI, Normocephalic. Oral: ETT and OG tube Neck: Supple, No JVD, Negative Carotid Bruits Chest wall/Lungs: Air entry diminished in bilateral lung bases. Bilateral expiratory rhonchi. On vent support Cardiovascular: Sinus rhythm, Normal S1,S2, No M/G/R Abdomen: Bowel Sounds sluggish, Soft, Non Tender, Non-Distended : No dysuria. No renal angle tenderness. No suprapubic tenderness. Extremities: Mild edema, Capillary Refill Less than 3 Seconds Skin: No rashes, No breakdown Musculoskeletal: No Tenderness to Palpation of Joints or Extremities but patient is seated Neurological: Sedated. Neuroexam unobtainable Psych/Mental Status: Sedated Results Lab / Micro Data 01/25/25 08:15 01/25/25 08:15 Labs: Laboratory Results - last 24 hr 01/25/25 08:15: WBC 12.2 H, RBC 3.52 L, Hgb 8.4 L, Hct 28.8 L, MCV 81.8, MCH 23.9 L, MCHC 29.2 L, RDW Std Deviation 40.7, RDW Coeff of Augustin 13.6, Plt Count 315, MPV 10.5, Immature Gran % (Auto) 0.700, Neut % (Auto) 74.3 H, Lymph % (Auto) 12.5 L, Whitley % (Auto) 11.0 H, Eos % (Auto) 1.3, Baso % (Auto) 0.2, Absolute Neuts (auto) 9.1 H, Absolute Lymphs (auto) 1.53, Nucleated RBC % 0, Sodium 137, Potassium 3.5, Chloride 84 L, Carbon Dioxide 44.1 H, Anion Gap 9, BUN 31 H, Creatinine 0.63 L, Estim Creat Clear Calc 65.65, Est GFR (MDRD) Non-Af 96, BUN/Creatinine Ratio 48.1 H, Glucose 115 H, Calcium 9.0, Total Creatine Kinase 77, Troponin T High Sens 38 H D, NT pro BNP II 1192 H, Triglycerides 135 01/25/25 08:40: Lactic Acid 1.9 Micro: Microbiology 01/25/25 08:40 Mucosa - Nose SARS-CoV-2, Influenza & RSV (PCR) - Final Imaging Radiology Impression Chest X-Ray 01/25/25 09:00 IMPRESSION: Tubes and lines in position. There are interstitial infiltrates throughout the right mid and lower lung and left lingular segment. There are trace bilateral effusions. Reading Location: [facility] Assessment & Plan Assessment/Plan (1) Acute respiratory failure: PLAN: Plan 1. Acute on chronic combined respiratory failure: Patient is being admitted in ICU, intubated in ED. On vent support, AC mode 40% FiO2/400 mL/5 PEEP.. Sedated. [employer] consulted. On baseline 3 L of oxygen at home 2. Suspected COPD exacerbation from bilateral multifocal pneumonia: Patient was mildly febrile 100.5 Fahrenheit. Chest x-ray and CTPA images individually reviewed and shows interstitial infiltrates in right mid and lower lung and left mid and lower segment. Suspicion of bilateral multifocal pneumonia. Trace bilateral effusion with blunted bilateral CP angles. CTA chest negative for PE but multifocal pneumonitis. Emphysema with chronic interstitial changes and subsegmental atelectasis. On broad-spectrum antibiotic IV Zosyn. Pneumonia workup ordered. Patient does not have documented PFT or diagnosed COPD but suspected in view of prolonged history of smoking. Patient is being managed on scheduled bronchodilator, IV Solu-Medrol, Mucinex, incentive spirometry and Pep. 3. Paroxysmal A-fib: As per EMS EKG it was A-fib RVR heart rate 105 per med. In ED, twelve-lead EKG individually reviewed and shows sinus tachycardia with PAC, ZHANE, LVH, QTc 514 ms/still prolonged QT. Avoid QT prolongation. Currently heart rate in 90s in sinus rhythm. On Eliquis 5 mg p.o. twice daily. On verapamil 180 mg twice daily, Multaq 400 mg twice daily, carvedilol 6.25 mg p.o. twice daily. Avoid QT prolonging insulin drug, Levaquin discontinued. Patient on Zosyn 4. Atypical chest pain as documented by EMS with history of valvular heart disease, severe aortic stenosis : It seems patient is undergoing workup for TAVR for severe aortic stenosis. Serial troponins 38, 31. Decreasing trend. 5. Hypertension: Blood pressure is controlled. 6. Restless leg syndrome, Anxiety and depression. History of chronic alcohol use. Home medication conciliation Microbiology Past 72 Hours 01/25/25 09:15 Sputum, Induced/Lukens Gram Stain - Final 01/25/25 09:04 Urine Catheter - Catheter Legionella Antigen - Final 01/25/25 09:04 Urine Catheter - Catheter Streptococcus pneumoniae Antigen (M - Final 01/25/25 08:40 Mucosa - Nose SARS-CoV-2, Influenza & RSV (PCR) - Final Laboratory Results 01/25/25 08:15: WBC 12.2 H, RBC 3.52 L, Hgb 8.4 L, Hct 28.8 L, MCV 81.8, MCH 23.9 L, MCHC 29.2 L, RDW Std Deviation 40.7, RDW Coeff of Augustin 13.6, Plt Count 315, MPV 10.5, Immature Gran % (Auto) 0.700, Neut % (Auto) 74.3 H, Lymph % (Auto) 12.5 L, Whitley % (Auto) 11.0 H, Eos % (Auto) 1.3, Baso % (Auto) 0.2, Absolute Neuts (auto) 9.1 H, Absolute Lymphs (auto) 1.53, Nucleated RBC % 0, Sodium 137, Potassium 3.5, Chloride 84 L, Carbon Dioxide 44.1 H, Anion Gap 9, BUN 31 H, Creatinine 0.63 L, Estim Creat Clear Calc 65.65, Est GFR (MDRD) Non-Af 96, BUN/Creatinine Ratio 48.1 H, Glucose 115 H, Calcium 9.0, Phosphorus 4.0, Magnesium 1.8, Total Bilirubin 0.34, Direct Bilirubin 0.17, AST 22, ALT 20, Alkaline Phosphatase 57, Total Creatine Kinase 77, Troponin T High Sens 38 H D, NT pro BNP II 1192 H, Total Protein 6.7, Albumin 4.5, Globulin 2.2, Triglycerides 135 01/25/25 08:40: Lactic Acid 1.9 01/25/25 10:27: Specimen Type ART, Sample Site L Brach, pH 7.51 H, Bicarbonate Actual 46.3 H, Total CO2 48, Base Excess 23 H, O2 Saturation 87 L, O2 % 30.0, ABG pCO2 58.7 H, ABG pO2 51 L, Respiration Rate 16, O2 Delivery Device Adult Vent, Vent Mode AC, Tidal Volume 400.0, POC PEEP 5 01/25/25 14:54: Troponin T Hi Sens 2 Hr 31 H Clinical Impression(s) from Imaging Studies Chest X-Ray 01/25/25 09:00 IMPRESSION: Tubes and lines in position. There are interstitial infiltrates throughout the right mid and lower lung and left lingular segment. There are trace bilateral effusions. Reading Location: [facility] Charges/Coding Visit Charges Inpatient E&M: 70352 Init Hosp L3 Procedures Hospitalists Procedures: 53830 Advncd Care Plan 30 Min
[2025-01-25 10:34] LABS: Base Excess 23 mmol/L (-2 to +2); FI02 30.0; PEEP 5; PO2 51 mmHG (75-100); RR 16; SITE L Brach; SO2 87 % (95-99)
[2025-01-25] MEDS: Azithromycin 500 MG in 0.9% Normal Saline (250mL Bag) 250 ML 250 MG IV (10:44)
[2025-01-25 10:50] LABS: AST(SGOT) 22 U/L (<=31); Alanine Aminotransfer ALT/SGPT 20 U/L (<=34); Albumin, Serum 4.5 g/dL (3.4-4.8); Alkaline Phosphatase 57 U/L (35-104); Bilirubin, Direct 0.17 mg/dL (0.00-0.30); Globulin 2.2 g/dL (2.2-4.2); Magnesium 1.8 mg/dL (1.5-2.2)
--- NOTE | 2025-01-25 11:47 | EX.PCM.CONCC ---
Assessment & Plan Assessment/Plan (1) Acute respiratory failure: PLAN: Plan RECOMMENDATIONS: 1. Continue assist-control mode of mechanical ventilation. Wean FiO2 and PEEP as tolerated. Decrease respiratory rate as ordered. 2. Continue propofol for sedation. Discontinue Versed and start fentanyl for pain control. 3. Start scheduled bronchodilators and steroids. 4. Continue empiric antibiotics. 5. Start appropriate ICU prophylaxis. IMPRESSIONS: 1. Acute on chronic combined respiratory failure Unclear if this was truly precipitated by the patient's COPD with concurrent panic attacks versus sequelae of her valvular heart disease. She is currently being worked up for a TAVR in [place]. In addition, she has a known extensive tobacco abuse history with a questionable history of COPD, despite never having completed pulmonary function studies or having been evaluated by a psychiatric social worker in the past. According to her , she has a baseline oxygen requirement of 3 L/min. Her CT scan was not overtly concerning for a focal infiltrate or consolidation to suggest pneumonia. However, the patient is currently febrile. Therefore, we will plan to continue empiric antibiotics. It does appear that she has grown both stenotrophomonas and Pseudomonas from sputum recently. The patient will be maintained on scheduled bronchodilators and steroids. 2. History of valvular heart disease/restless leg syndrome/anxiety/depression/former tobacco dependency/history of non-small cell lung cancer status post right lobectomy Complicates care, management, recovery and prognosis. Continue supportive measures as noted above. TIME: 35 minutes of critical care time, independent of procedures, was spent addressing the patient's acute on chronic combined respiratory failure, review of all data and collaboration with the care team. HPI Consult Data Date of Consult: 01/25/25 HPI Narrative HPI Narrative: The patient is a 69-year-old female, with a history as outlined below, who presented to the emergency department on January 25 with worsening dyspnea. History was obtained primarily from her , as the patient is currently intubated and mechanically ventilated. According to him, the patient has a known history of COPD and chronic tobacco dependency, which is currently in remission. She has an approximate [id number] smoking history, but reportedly quit recently. Although she has a reported history of COPD, she has never been evaluated by a psychiatric social worker, nor has she ever had formal pulmonary function studies completed. He did report that the patient has significant anxiety and experiences frequent panic attacks. In addition, the patient is currently being worked up for a TAVR in [place] due to a history of severe aortic valve stenosis. Lastly, the patient is supposed to be utilizing 3 L/min of supplemental oxygen at her baseline, but routinely increases her flow rate on her own. On presentation to the emergency department, the patient was noted to be afebrile but was notably tachycardic and tachypneic. Blood pressure was elevated at 174/139 mmHg. The patient was in mari respiratory distress on arrival. Although noninvasive positive pressure ventilatory support was tried empirically, the patient was ultimately intubated. Laboratory evaluation was notable for a white blood cell count of 12,000. Hemoglobin and platelet count were stable. Chemistry profile was notable for a bicarbonate of 44 and creatinine of 0.63. Lactate was within normal limits. Troponin was elevated at 38 with a BNP of 1192. Postintubation ABG was notable for a pH of 7.5 with a pCO2 of 58 and pO2 of 51. CT head was unremarkable. CTA chest showed no evidence for pulmonary embolism, but did reveal bilateral emphysema with chronic interstitial changes. There was no focal infiltrate or consolidation. The patient was ultimately placed on antimicrobials, bronchodilators and steroids. She was admitted to the medical intensive care unit for further management. [facility] Medical History Palliative care encounter Acute anemia Acute respiratory insufficiency Anxiety Anxiety and depression Respiratory insufficiency COPD with acute exacerbation Afib Aortic valve stenosis RLS (restless legs syndrome) History of ETOH abuse Chronic hypoxic respiratory failure, on home oxygen therapy COPD (chronic obstructive pulmonary disease) Anxiety Depression Smoker Asthma Hypertension Migraines Home Medications ?Medication ?Instructions ?Recorded ?Last Taken ?Type albuterol sulfate 90 mcg/actuation 1 - 2 puff inhalation Q4H PRN PRN 04/18/13 09/23/14 History aerosol inhaler (Ventolin HFA) Bronchodialation cyclobenzaprine 10 mg tablet 10 mg PO Q12H pain 04/18/13 09/23/14 History 10 MG fluticasone propionate 50 1 spray intranasal DAILY nasal 04/18/13 09/23/14 History mcg/actuation nasal congestion spray,suspension montelukast 10 mg tablet 10 mg PO DAILY allergies 04/18/13 09/23/14 History 10 MG tiotropium bromide 18 mcg capsule 1 puff inhalation DAILY wheezing 04/18/13 09/23/14 History with inhalation device (Spiriva with HandiHaler) Oxygen, Home [Home Oxygen] 2.5 lpm PRN PRN Dyspnea 10/22/13 09/23/14 History sertraline 100 mg tablet 100 mg PO BID mood 10/22/13 09/23/14 History fluticasone 500 mcg-salmeterol 50 1 puff inhalation BID shortness of 10/26/13 09/23/14 Rx mcg/dose blistr powdr for breath ##1 inhalation (Advair Diskus) Ropinirole Hcl 0.25 mg PO QHS restless legs 09/23/14 Unknown History prednisone 10 mg tablet 15 mg PO QODAY PRN FLARE UPS 04/03/15 Unknown History ipratropium 0.5 mg-albuterol 3 mg 3 ml inhalation Q4HWA.RT wheezing 05/13/16 Unknown Rx (2.5 mg base)/3 mL nebulization ##30 soln lorazepam 0.5 mg tablet 0.5 mg PO QHS anxiety #7 tabs 05/05/20 Unknown Rx nicotine (polacrilex) 2 mg gum 2 mg buccal Q2H to stop smoking 07/22/23 Unknown Rx (Nicorette) #20 ea cholecalciferol (vitamin D3) 50 50 mcg PO DAILY vitamin 10/18/23 Unknown History mcg (2,000 unit) capsule (Vitamin D3) ipratropium 0.5 mg-albuterol 3 mg 3 ml inhalation Q6H PRN shortness 10/18/23 Unknown Rx (2.5 mg base)/3 mL nebulization of breath or wheezing #180 mL soln buspirone 10 mg tablet 10 mg PO BID anxiety 10/02/24 Unknown History hydrocodone-acetaminophen 5-325mg 1 tab PO BID PRN PRN pain 10/03/24 Unknown History 5mg-325mg nicotine 14 mg/24 hr daily 14 mg transdermal DAILY prn #28 ea 10/09/24 Unknown Rx transdermal patch apixaban 5 mg tablet (Eliquis) 5 mg PO BID blood thinne #60 tabs 11/03/24 Unknown Rx Held on 12/30/24. Instructions: Resume on 01/02/25. hold per GI, until 01/02/2025 carvedilol 6.25 mg tablet 6.25 mg PO BID bp #60 tabs 11/03/24 Unknown Rx furosemide 20 mg tablet 20 mg PO DAILY fluid overload 12/27/24 Unknown History simethicone 250 mg capsule (Gas-X) 250 mg PO BID gas 12/27/24 Unknown History pantoprazole 40 mg tablet,delayed 40 mg PO BID #60 tabs 12/30/24 Unknown Rx release prednisone 20 mg tablet 40 mg (2 x 20 mg) PO DAILY #10 tabs 12/30/24 Unknown Rx verapamil 180 mg 24 hr 180 mg PO BID #60 caps 12/30/24 Unknown Rx capsule,extended release Allergy/AdvReac Type Severity Reaction Status Date / Time No Known Allergies Allergy Verified 01/25/25 08:25 Family History Mother Hypertension Throat cancer Father Hypertension Stomach cancer Surgical History H/O exploratory laparotomy History of lung surgery History of cholecystectomy Social History household members: significant other and none housing: apartment Smoking Status: Former smoker alcohol intake: former substance use type: does not use ROS Review of Systems ROS Unobtainable: due to endotracheal tube Physical Exam Const Constitutional Narrative: Intubated, sedated mechanically ventilated. HEENT normocephalic and head/scalp atraumatic Mouth: endotracheal tube in place and OG tube in place Eyes PERRL and conjunctivae normal Neck supple General: trachea midline Resp Auscultation: diminished lung sounds; Negative for rales, rhonchi or wheezes Cardio regular rate and regular rhythm Heart Sounds: murmur GI soft to palpation and non-tender GI Narrative: Protuberant abdomen Extremity General Extremity: edema bilateral lower extremity; Negative for clubbing Skin no rashes or lesions noted Neuro Sensorium / Orientation: sedated on vent Lab / Micro Data 01/25/25 08:15 01/25/25 08:15 Labs: Laboratory Results - last 24 hr 01/25/25 08:15: WBC 12.2 H, RBC 3.52 L, Hgb 8.4 L, Hct 28.8 L, MCV 81.8, MCH 23.9 L, MCHC 29.2 L, RDW Std Deviation 40.7, RDW Coeff of Augustin 13.6, Plt Count 315, MPV 10.5, Immature Gran % (Auto) 0.700, Neut % (Auto) 74.3 H, Lymph % (Auto) 12.5 L, Cameron % (Auto) 11.0 H, Eos % (Auto) 1.3, Baso % (Auto) 0.2, Absolute Neuts (auto) 9.1 H, Absolute Lymphs (auto) 1.53, Nucleated RBC % 0, Sodium 137, Potassium 3.5, Chloride 84 L, Carbon Dioxide 44.1 H, Anion Gap 9, BUN 31 H, Creatinine 0.63 L, Estim Creat Clear Calc 65.65, Est GFR (MDRD) Non-Af 96, BUN/Creatinine Ratio 48.1 H, Glucose 115 H, Calcium 9.0, Phosphorus 4.0, Magnesium 1.8, Total Bilirubin 0.34, Direct Bilirubin 0.17, AST 22, ALT 20, Alkaline Phosphatase 57, Total Creatine Kinase 77, Troponin T High Sens 38 H D, NT pro BNP II 1192 H, Total Protein 6.7, Albumin 4.5, Globulin 2.2, Triglycerides 135 01/25/25 08:40: Lactic Acid 1.9 Micro: Microbiology 01/25/25 09:04 Urine Catheter - Catheter Legionella Antigen - Final 01/25/25 09:04 Urine Catheter - Catheter Streptococcus pneumoniae Antigen (M - Final 01/25/25 08:40 Mucosa - Nose SARS-CoV-2, Influenza & RSV (PCR) - Final ABG Data ABG results: ABG 01/25/25 10:27 Specimen Type ART Sample Site L Brach pH 7.51 H Bicarbonate Actual 46.3 H Total CO2 48 Base Excess 23 H O2 Saturation 87 L O2 % 30.0 ABG pCO2 58.7 H ABG pO2 51 L Respiration Rate 16 O2 Delivery Device Adult Vent Vent Mode AC Tidal Volume 400.0 POC PEEP 5 Rhythm Strip Rhythm Strip: Sinus Tach Rate: 110 Ectopy: PAC(s) Imaging Radiology Impression Brain CT 01/25/25 08:46 IMPRESSION: CHRONIC CHANGES. NO ACUTE FINDINGS. Reading Location: [id number] Chest CTA 01/25/25 08:51 IMPRESSION: No demonstrated PE, however, the contrast bolus within the pulmonary arteries is not optimal and a subtle filling defect could be present and overlooked particularly in the distal pulmonary artery branches No thoracic aortic aneurysm or dissection Emphysema with chronic interstitial changes, nonspecific pleural thickening in both hemithoraces, subsegmental atelectasis, and multifocal pneumonitis ET tube is 1 cm above the kaylan and should be pulled back 2-3 cm NG tube tip in the body of the stomach Degenerative bony changes Hiatal hernia with evidence of GE reflux Fatty liver Simple renal cysts, no specific follow-up needed Reading Location: [id number] Chest X-Ray 01/25/25 09:00 IMPRESSION: Tubes and lines in position. There are interstitial infiltrates throughout the right mid and lower lung and left lingular segment. There are trace bilateral effusions. Reading Location: [facility] Charges/Coding Procedures Hospitalists Procedures: 93083 Critical Care 1st Hr
[2025-01-25] MEDS: Piperacil/Tazobactam 3.375 GM in 0.9% Normal Saline (50mL MB+) 50 ML IV ×2 (12:07→21:02)
[2025-01-25] MEDS: 0.9% Normal Saline (1000mL) 1,000 ML 75 ML IV (12:30)
[2025-01-25] MEDS: fentaNYL drip 100 ML 5 MCG CONT INF (12:51)
[2025-01-25] MEDS: 0.9% Saline Lock 10 ML Syringe IV (14:53)
[2025-01-25] MEDS: levoFLOXacin IV 750 MG/150 ML BAG 100 MG IV (15:25)
[2025-01-25 15:26] LABS: Troponin T High Sens 2 HR 31 ng/L (<=14)
--- NOTE | 2025-01-25 15:51 | CHAPLAIN ---
Type of Pastoral Visit _x__ Initial Visit ___ Follow-up Visit ___ On-call Visit ___ General Patient Visit ___ Spiritual Assessment ___ Family Conference ___ Bereavement ___ Rapid Response ___ Code Blue ___ Other (describe below) Pastoral Care Referral From ___ Patient ___ Family _x__ Nurse ___ Physician ___ Procedures Rn ___ Electronic Communications Technician ___ Other (describe below) Sacrament/Intervention _x__ Active listening ___ Anointing ___ Anabaptist ___ Bereavement ___ Communion ___ [place] exploration ___ ___ Life review _x__ Prayer ___ Reconciliation ___ Sacrament of Sick _x__ Supportive presence ___ Wedding ___ Other (describe below) Pastoral Comments patient was intubated this morning and came to ICU; a niece is in the room now and quite emotional; offered support and presence to the niece; niece asks for reassurance and of prayer for healing; pt is sedated but time given to pray and to give calm presence with opportunity to ask questions by family members; niece indicates that more family members may not be available or helpful; encouraged niece to ask questions to help here understand what is happening
[2025-01-25] MEDS: Propofol 10MG/Ml 1,000 MG/100 ML Bottle 9 MG CONT INF (16:49)
[2025-01-25] MEDS: Verapamil SR 180 MG CAPSULE PO (20:59)
[2025-01-25] MEDS: APIXABAN 5 MG TABLET PO (20:59)
[2025-01-25 22:41] LABS: Mucous, Urine 0 SEEN /hpf (<or=2+); Squamous Epithelial Cells - UA 0 SEEN /hpf (5-10)
[2025-01-25 22:42] LABS: Color, Urine Yellow (Yellow); Glucose, Dipstick Normal (Normal); Ketone-Dipstick 5 mg/dl (Negative); Leukocyte Esterase-Dipstick Negative /ul (Negative); Nitrite-Dipstick Negative (Negative); Occult Blood-Urine 50 /ul (Negative); Protein-Dipstick 500 mg/dl (Negative); Specific Gravity, Urine 1.025 (1.002-1.030); Urine Bilirubin Dipstick Negative (Negative)
[2025-01-25 22:50] LABS: Red Blood Cells-Urine 0-5 SEEN /hpf (0-5)
[2025-01-25] MEDS: fentaNYL drip 100 ML 10 MCG CONT INF (23:31)
[2025-01-26] VITALS (42 sets, daily range): BP systolic 84–168; BP diastolic 49–88; PULSE 72–148; RESP 12–17; TEMP 37.2–37.9; O2SAT 88–100; BMI 28.0
--- OUTSIDE RECORDS SUMMARY | 2025-01-26 00:16 | XMS RPT_ITS | CCD ---
Author Organization [facility] Care Team Providers Care [employer] Superintendent Name Role Phone Yoseph Fall MD Primary Care Provider Dr. Yoseph Fall Primary Care Provider Dr. Dallas Mena Emergency Provider Dr. José Cunningham Admit Provider Unavailabl e Dr. José Cunningham Other Provider Unavailabl e Dr. Jan Bolanos Attending Provider Dr. Jan Bolanos Other Provider Yoseph Fall MD Primary Care Provider Yoseph Fall MD Primary Care Provider Tannhof PPA TEACHER.MARINE INSURANCE CLAIM EXAMINER, Iman Unavailable Jakob PPA TEACHER.MARINE INSURANCE CLAIM EXAMINER, Nelson Unavailable Tannhof PPA TEACHER.MARINE INSURANCE CLAIM EXAMINER Iman Unavailable Unavail able Tannhof PPA TEACHER.MARINE INSURANCE CLAIM EXAMINER, Iman Unavailable Dr. Yoseph Fall MD Primary Care Provider [phone] Dr. Riley Jeff DO Emergency Provider Dr. [...] Provider Charley BABCOCK, Lindsay Soliz Attending Provider Richard Broussard RN Unavailable Unavailable Rebecca PPA TEACHER.MARINE INSURANCE CLAIM EXAMINER, Gregor Unavailable Unavailable Primary Care Provider Unavailizzy Zarate MD, Dr. Rod Emergency Provider Yudelka MAILER APPRENTICE-CStacy Other Provider Yudelka MAILER APPRENTICE-CStacy Attending Provide r Dr. Kyle Mendenhall DO Other Provider Andrea MAILER APPRENTICE-CElma Other Provider Jake MAILER APPRENTICE-CMercedez Other Provider Jackie Urbano Other Provider Friend Dr. Kyle CRUM Attending Provider Charlotte Dionne L Admitting Unavailable Dionne Porter L Consulting Unavailable Michael Plasencia Attending Unavailable Yoseph Fall Primary Care Unavailable Jan Bolanos Consulting Unavailable Junito Madrid Consulting Unavailable Lynne Schafer Consulting Unavailable Lynne Schafer Attending Unavailable Dionne Porter L Consulting Unavailable Stacy Jha Attending Yoseph Floyd Primary Care Unavailable Dionne Porter L Admitting Unavailable Stacy Jha Consulting Alessandro Melo Consulting Unavailable Kyle Mendenhall Consulting Unavailable Elma Mendez Consulting Unavailable Mercedez Joseph Consulting Unavailable Jackie Henry Consulting Unavailable Koram, Lynne Nhung Consulting Unavailable White, Dionne L Attending Unavailable Eldermlck, Yoseph Primary Care Unavailable Koram, Lynne Nhung Attending Unavailable Jan Bolanos Attending Unavailable Junito Madrid Attending Unavailable White, Dionne L Attending Unavailable White, Dionne L Consulting Unavailable White, Dionne L Admitting Unavailable Elderbrock, Yoseph Primary Care Unavailable Louie, Alessandro Attending Unavailable Louie, Alessandro Consulting Unavailable White, Dionne L Consulting Unavailable Koram, Lynne Nhung Attending Unavailable White, Dionne L Admitting Unavailable Elderbrock, Yoseph Primary Care Unavailable Stacy Jha Consulting Unavai lable Louie, Alessandro Consulting Unavailable Za, Kyle Consulting Unavailable Elma Mendez Consulting Unavailable Mercedez Joseph Consulting Unavailable Elaine, Jackie Consulting Unavailable White, Dionne L Admitting Unavailable White, Dionne L Consulting Unavailable Louie, Alessandro Attending Unavailable Elderbrock, Yoseph Primary Care Unavailable Jan Bolanos Consulting Unavailable Junito Madrid Consulting Unavailable Koram, Lynne Nhung Consulting Unavailable Elderbrock, Yoseph Primary Care Unavailable Yoseph Fall Attending Unavailable Kyle Mendenhall Attending Unavailable Koram, Ylnne Nhung Referring Unavailable Lindsay Russell Attending Unavail able ElderbrockYoseph Primary Care Unavailable ElderbroYoseph michael Referring Unavailable Zaria Chen Attending Unavailable ElderYoseph gallo Primary Care Unavailable Dillon Lopez Attending Unavailable Elderbrock, Yoseph Primary Care Unavailable YOSEPH FALL Referring Unavailable YOSEPH FALL Primary Care Unavailable GREGOR FERNANDEZ Attending YOSEPH Floyd Primary Care Unavailable GREGOR FERNANDEZ Attending Stephanie blake SELF Referring Unavailable ELDERYOSEPH GALLO Referring Unavailable JESUS CARTER Attending Unavailable ELDERYOSEPH GALLO Primary Care Unavailable ELDERYOSEPH GALLO Attending Unavailable ELDERYOSEPH GALLO Primary Care Unavailable ELDERYOSEPH GALLO Attending Unavailable ELDERYOSEPH GALLO Primary Care Unavailable ELDERSHAY, YOSEPH Liu Primary Care Unavailable YOSEPH FALL Attending Unavailable ZARIA SHEA Attending Unavailable RUBI CORBETT Attending Unavailable ZARIA SHEA Referring Unavailable ZARIA SHEA Attending Unavailable ZARIA SHEA Admitting Unavailable ZARIA SHEA Attending Unavailable Medications Current Medications Medication Drug Class(es) Dates Sig (Normalized) Sig (Original) acetaminophen 325 mg / HYDROcodone bitartrate 5 mg oral tablet (20 sources) Opioid Agonist Start: 06-15-2023 End: 01-18-2025 take 1 tablet by mouth twice daily as needed for pain HYDROcodone-acetam inophen (NORCO) 5-325 mg per tablet Indications: Chronic low back pain with sciatica, sciatica laterality unspecified, unspecified back pain laterality Take 1 tablet by mouth two times a day as needed for pain for up to 30 days. 60 tablet 12/19/2024 01/18/2025 Active Start: 07-17-2021 End: 05-20-2023 take 1 [...] Start: 09-23-2014 take 7.5-325 mg by m out every six hours as needed Hydrocodone-Acetaminophen Active 7.5 - 3 25 MG PO EVERY 6 HOURS NEEDED September 23, 2014 12:00am take 1 tablet by richard th every six hours as needed HYDROcodone-acetaminophen ([place]) 5-325 MG tablet Take 1 tablet by [...] Do not start before June 15, 2023. [id number] 200 actuat albuterol 0.09 mg/actuat metered dose [...] 10 days. 20 tablet 02/04/2024 02/14/2024 Active apixaban 5 mg oral tablet (20 sources) Factor Xa Inhibitor Start: 10-09-2024 End: 01-05-2025 take 1 tablet by mouth twice daily apixaban (ELIQUIS) 5 mg tab(s) Take 5 mg by mouth two times a day. 10/09/2024 Active Start: 10-09-2024 End: 11-03-2024 take 1 drop(s) by mouth twice daily Apixaban (Eliquis) 5 mg tablet Active 5 mg PO TWICE A DAY 60 November 03, 2024 1:31pm blood thinne On Hold: Resume on 01/02/25. hold per GI, until 01/02/2025 Discontinue if platelet count drops less than 50,000 or hemoglobin less than 8 g% azithromycin 250 mg oral tablet (8 sources) Macrolide Antimicrobial Start: 10-22-2023 End: 10-27-2023 [...] 1 tablet by mouth twice daily busPIRone (Buspar) 10 MG tablet Take 10 mg by mouth 2 times daily. 11/06/2024 Active carvedilol 6.25 mg oral tablet (20 sources) alpha-Adrenergic He, beta-Adrenergic He Start: 10-09-2024 End: 11-03-2024 take 1 tablet by mouth twice daily at mealtime carvedilol (COREG) 6.25 mg tablet Take 6.25 mg by mouth two times a day with meals. 10/09/2024 Active cholecalciferol 0.05 mg oral capsule (20 sources) Vitamin D Start: 10-18-2023 cholecalciferol (Vitamin D-3) 50 MCG (2000 UT) capsule Take by mouth daily. 09/22/2024 Active Start: 12-31-2021 End: 06-22-2024 take 1 capsule by mouth once daily Cholecalciferol, Vitamin D3, 50 mcg (2,000 unit) cap Take 1 capsule by mouth once daily. 90 capsule 3 06/22/2024 Active Start: 07-17-2021 take 1 capsule by mo uth once daily Cholecalciferol, Vitamin D3, 50 mcg (2,000 unit) cap Take 1 capsule by mouth once daily. 30 capsule 5 07/17/2021 Active Comment on above: Take 1 capsule by mo uth once daily. COMPOUNDED PRESCRIPTION (20 sources) Start: [...] 10 MG tablet Active 10 mg PO Q12April 18, 2013 1:00am pain Comment on above: Take 1 tablet by richard th twice daily as needed for muscle spasm. Take 1 tablet by richard th two times a day as needed for muscle spasm. Disposable Gloves (DISPOSABLE LATEX-FREE GLOVES) misc (20 sources) Start: 10-08-2017 Disposable Gloves (DISPOSABLE LATEX-FREE GLOVES) misc Indications: Generalized osteoarthrosis, involving multiple sites , Chronic obstructive pulmonary disease, unspecified COPD type (HCC) , Chronic low back pain with sciatica, sciatica laterality unspecified, unspecified back pain laterality 1 Box once every month. ICD 10: M15.9, J44.9, M54.40 1 Each 10/08/2017 Active Comment on above: 1 Box once every wed. ICD 10: M15.9, J44.9, M54.40 doxycycline hyclate 100 mg oral tablet (12 sources) Tetracycline-cla ss Drug Start: 11-24-2024 End: 12-04-2024 take 1 tablet by mouth twice daily doxycycline (VIBRA-TABS) 100 mg tablet Indications: Stage 3 severe COPD by GOLD classification ([facility]) Take 1 tablet by mouth two times a day for 10 days. 20 tablet 11/24/2024 12/04/2024 Active Start: 04-18-2013 End: 05-02-2013 take 1 capsule by mouth twice daily Doxycycline Hyclate 100 MG capsule Discontinued 100 mg PO TWICE A DAY 20 April 18, 2013 1:00am May 02, 2013 9:19pm dronedarone 400 mg oral tablet (20 sources) Antiarrhythmic Start: 10-09-2024 End: 12-26-2024 take 1 tablet by mouth twice daily at mealtime dronedarone (MULTAQ) 400 mg tab Take 400 mg by mouth two times a day with meals. 10/09/2024 Active fluticasone propionate 0.05 mg/actuat metered dose nasal spray (20 sources) Corticosteroid Start: 08-21-2024 take 2 spray(s) by mouth once daily fluticasone (Flonase) 50 MCG/ACT nasal spray use 2 sprays in each nostril daily. Rinse mouth after use 08/21/2024 Active Start: 04-18-2013 End: 09-15-2023 take 2 spray(s) by mouth once daily [...] Start: 05-18-2023 take 1 puff(s) by mo [facility] twice daily fluticasone-salmeterol (ADVAIR DISKUS) 500-50 mcg/dose dsdv Inhale 1 Puff as instructed two times a day. Rinse and gargle mouth with water after use. 3 Each 3 05/18/2023 Active Start: 03-17-2023 take 1 puff(s) by mo ut twice daily fluticasone-salmeterol (ADVAIR DISKUS) 500-50 mcg/dose [...] Start: 01-15-2023 take 1 puff(s) by mo [facility] twice daily fluticasone-salmeterol (ADVAIR DISKUS) [...] Discontinued Start: 12-31-2021 take 1 puff(s) by mo [facility] twice daily fluticasone-salmeterol (ADVAIR DISKUS) 500-50 mcg/dose dsdv Inhale 1 Puff as instructed twice daily. Rinse and gargle mouth with water after use. 3 Each 3 12/31/2021 Active Start: 04-21-2021 take 1 puff(s) by mo uth twice daily fluticasone-salmeterol (ADVAIR DISKUS) 500-50 mcg/dose dsdv Inhale 1 Puff as instructed twice daily. Rinse and gargle mouth with water after use. 3 Each 3 04/21/2021 Active Start: 04-21-2021 take 1 puff(s) by mo uth twice [...] oral tablet (20 sources) Loop Diuretic Start: take 1 tablet by mouth once daily furosemide (LASIX) 20 mg tablet Take 1 tablet by mouth once daily. 30 tablet 2 10/20/2024 Active hydrOXYzine pamoate 25 mg oral capsule (8 sources) Antihistamine Start: take 1 capsule by mouth every six hours as needed hydrOXYzine pamoate (VISTARIL) 25 mg capsule Take 1 capsule by mouth four times a day as needed for anxiety. 30 capsule 2 01/09/2025 Active Start: 12-22-2024 take 1 tablet by richard th three times daily as needed hydrOXYzine HCl (ATARAX) 25 mg tablet Indications: Itching Take 1 tablet by mouth three times a day as needed (for itching). 30 tablet 2 12/22/2024 Active Incontinence Pad, Liner, Disp (POISE PADS) pads (20 sources) Start: 05-22-2016 Incontinence Pad, Liner, Disp (POISE PADS) pads Indications: Mixed incontinence urge and stress (male)(female) Use pads as directed. Dx: N39.46 88 Each 5 05/22/2016 Active Comment on above: Use pads as directed . Dx: N39.46 ammonium lactate 120 mg/ml topical lotion (20 sources) Start: 08-15-2020 ammonium lactate (AMLACTIN) 12 % lotion Indications: Other psoriasis Apply 1 application to affected area as needed for Dry Skin. 225 g 2 08/15/2020 Active Comment on above: Apply 1 application to affected area as needed for Dry Skin. levoFLOXacin 500 mg oral tablet (20 sources) Quinolone Antimicrobial Start: 10-09-2024 End: 10-31-2024 take 1 tablet by mouth once daily levoFLOXacin (LEVAQUIN) 500 mg tablet Take 500 mg by mouth once daily. 10/09/2024 Active Start: 07-22-2023 End: 10-18-2023 take 1 tablet by mouth once daily Levofloxacin 750 mg tablet Discontinued 750 mg PO DAILY 5 0 July 22, 2023 12:00am October 18, 2023 1:07am LORazepam 0.5 mg oral tablet (8 sources) Benzodiazepine Start: 05-05-2020 take 1 tablet [...] daily. 90 tablet 3 06/01/2024 05/27/2025 Active Comment on above: Take 1 tablet [...] 02/19/2023 Discontinued Start: 05-17-2020 [facility] Indications: Chronic obstructive pulmonary disease, unspecified COPD [...] system (20 sources) Cholinergic Nicotinic Agonist Start: 10-10-19 End: 11-01-19 apply 1 dose transdermal route every twenty-four hours nicotine (NICODERM) 14 mg/24 hr apply one patch transdermally as directed every 24 hours 28 patch 5 11/01/2024 Active Start: 07-22-2023 Nicotine (Mohamud crilex) (Nicorette) 2 mg gum Active 2 mg BUCCAL Q2H 20 0 July 22, 2023 12:00am to stop smoking [...] een cheek and gum as needed. nystatin [id number] unt/ml oral suspension (20 sources) Polyene Antifungal [...] EMPTY STOMACH 30 capsule 11 06/22/2024 Active Comment on above: TAKE 1 CAPSULE EVERY DAY on an empty stomach Take 1 capsule by [facility] once daily. ON AN EMPTY STOMACH Oxygen, Home (Home Oxygen) (8 sources) Start: 4 Oxygen, Home (Home Oxygen) Active 2.5 LPM NASAL NEEDED as needed for Dyspnea October 22, 2013 12:00am Start: 10-22-2013 Oxygen, Home ( Home Oxygen) Active 2.5 LPM NASAL NEEDED October 22, 2013 12:00am OXYGEN, HOME THERAPY, (20 sources) Start: 05-11-2018 OXYGEN, HOME THERAPY, Indications: Chronic obstructive pulmonary [...] 04/13/2005 Active Comment on above: as necessary pantoprazole 40 mg delayed release oral tablet (1 source) Proton Pump Inhibitor Start: 12-30-2024 take 1 tablet by mouth twice daily Pantoprazole 40 mg tablet,delayed release (DR/EC) Active 40 mg PO TWICE A DAY 60 2 December 30, 2024 12:00am predniSONE 20 mg oral tablet (20 sources) Start: 12-30-2024 take 2 tablets by mouth once daily Prednisone 20 mg tablet Active 40 mg PO DAILY 10 0 December 30, 2024 12:00am Start: 11-13-2024 predniSONE (DE LTASONE) 10 mg tablet Indications: Stage 3 severe COPD by GOLD classification ([facility]) Take 1.5 pills every day or every other day as needed 45 tablet 5 11/13/2024 Active Start: 08-21-2024 End: 11-13-2024 take 1.5 tablets by mouth every other day predniSONE (DELTASONE) 10 mg tablet Indications: Stage 3 severe COPD by GOLD classification ([facility]) Take 1.5 tablets by mouth every other day. 30 tablet 5 10/12/2024 11/13/2024 Discontinued Start: 10-18-2023 End: 11-03-2024 take 2 tablets by mouth once daily Prednisone 20 mg tablet Discontinued 40 mg PO DAILY 10 5 October 09, 2024 3:54pm November 03, 2024 [...] Stage 3 severe COPD by GOLD classification ([facility]) Take 1.5 tablets by mouth every other [...] by mouth every other day. PULSE OXIMETER [facility] (20 sources) Start: 07-17-2021 PULSE OXIMETER [facility] Indications: Chronic obstructive pulmonary disease, unspecified COPD type (HCC) , Moderate persistent asthma without complication (HCC) Use as directed to check oxygen saturation level 1 Each 07/17/2021 Active Start: 07-17-2021 PULSE OXIMETER [facility] Indications: Chronic obstructive pulmonary disease, unspecified COPD type (HCC) , Moderate persistent asthma without complication Use as directed to check oxygen saturation level 1 Each 07/17/2021 Active Start: 07-17-2021 PULSE OXIMETER [facility] Indications: Chronic obstructive pulmonary disease, unspecified COPD type (HCC) , Moderate persistent asthma without complication Use as directed to check oxygen saturation level 1 Each 0 07/17/2021 Active Comment on above: Use [facility] rOPINIRole 0.25 mg oral [...] on above: Take 2 tablets by mo [facility] once daily. simethicone 250 mg oral capsule (2 sources) Start: 12-28-19 take 1 capsule by mouth twice daily Simethicone (Gas-X) 250 mg capsule Active 250 mg PO TWICE A DAY December 27, 2024 12:00am gas tiotropium 0.018 mg inhalation powder (20 sources) Anticholinergic Start: 09-16-19 tiotropium (Spiriva) [address] [...] 1 capsule as instructed once daily. Tiotropium [place] (Spiriva With Handihaler) 1 PUFF inhaler (8 sources) Start: 3 take 1 puff(s) by inhalation once daily Tiotropium [place] (Spiriva With Handihaler) 1 PUFF inhaler Active 1 NMA INHALATION DAILY April 18, 2013 1:00am wheezing Start: 04-18-2013 take 1 puff(s) by in halation once daily Tiotropium [place] (Spiriva With Handihaler) 1 PUFF inhaler Active 1 NMA INHALATION DAILY April 18, 2013 1:00am Start: 04-18-2013 take 1 puff(s) by in halation once daily Tiotropium [place] (Spiriva With Handihaler) 1 PUFF inhaler Active 1 PUFF INHALATION DAILY April 18, 2013 1:00am 24 hr verapamil hydrochloride 180 mg extended release oral capsule (20 sources) Calcium Channel He Start: 10-09-2024 End: 12-26-2024 take 1 capsule by mouth twice daily verapamil ER 180 mg 24 hr capsule Take 1 capsule by mouth two times a day. 10/09/2024 Active Start: 12-31-2021 End: 10-09-2024 take 1 tablet [...] / oxyCODONE hydrochloride 5 mg oral tablet (8 sources) Opioid Agonist Start: 10-22-2013 End: 10-26-2013 [...] 2013 3:36pm ALPRAZolam 0.5 mg oral tablet (8 sources) Benzodiazepine Start: 05-04-2013 End: 07-20-2023 take 1 tablet by mouth three times daily as needed for anxiety Alprazolam 0.5 MG tablet Discontinued 0.5 mg PO 3 TIMES DAILY NEEDED as needed for Anxiety 30 0 May 04, 2013 1:00am July 20, 2023 4:35am aspirin 81 mg delayed release oral tablet (2 sources) Platelet Aggregation Inhibitor, Nonsteroidal Anti-inflammatory Drug End: 01-05-2025 take 1 tablet by mouth once daily aspirin 81 MG EC tablet Take 81 mg by mouth daily. 01/05/2025 Discontinued (Stop taking at discharge) cefdinir 300 mg oral capsule (4 sources) Cephalosporin Antibacterial Start: 10-10-2024 End: 12-26-2024 take 1 capsule by mouth twice daily Cefdinir 300 mg capsule Discontinued 300 mg PO TWICE A DAY 12 6 0 October 10, 2024 12:00am December 26, 2024 8:18pm cephalexin 500 mg oral capsule (8 sources) Cephalosporin Antibacterial Start: 10-22-2013 End: 10-26-2013 take 1 capsule by mouth every six hours Cephalexin 500 MG capsule Discontinued 500 mg PO EVERY 6 HOURS 40 0 October 22, 2013 12:00am October 26, 2013 3:35pm dextromethorphan hydrobromide 1 mg/ml / guaiFENesin 20 mg/ml / phenylephrine hydrochloride 0.5 mg/ml oral solution (20 sources) Uncompetitive Y-fsweln-Y-asparta te Receptor Antagonist, Sigma-1 Agonist, alpha-1 Adrenergic Agonist [...] by mouth three times daily as needed. guaiFENesin 600 mg oral tablet (8 sources) Start: 05-13-2016 End: 10-18-2023 take 1 tablet by mouth twice daily Guaifenesin (Mucus Relief Er) 600 MG tablet Discontinued 600 mg PO TWICE A DAY 0 May 13, 2016 1:00am October 18, 2023 1:05am congestion naproxen 500 mg oral tablet (8 sources) Nonsteroidal Anti-inflammatory Drug Start: 10-22-2013 End: 10-26-2013 take 1 tablet by mouth twice daily Naproxen 500 MG tablet Discontinued 500 mg PO TWICE A DAY October 22, 2013 12:00am October 26, 2013 3:35pm 50 ml sodium chloride 9 mg/ml injection (6 sources) Start: 01-05-2025 End: 01-05-2025 take 100 mL intravenously every hour as needed, then take 20 mL intravenously every hour as needed 5-250 mL/hr, IntraVENous, PRN, if patient receiving piggyback infusions and maintenance fluids are not ordered OR KVO fluids to protect IV site / prevent frequent line interruptions / long duration, Starting on Wed01/05/25 at 0900, Preprocedure, For piggyback infusion, administer at same rate as piggyback for a total of 25 mL. Enter 25 mL into dose field and piggyback rate into rate field of order. If piggyback is infusing at a rate less than 100 mL/hr, enter 25 mL into dose field and 100 mL/hr into rate field of order. For KVO fluids, enter rate of 20 mL/hr or less into rate field of order. Start: 01-05-2025 End: 01-05-2025 5-40 mL, IntraVENous, PRN, l ine care, After every IV line use, Starting on Wed01/05/25 at 0900, Preprocedure, For Line Patency: Peripheral IV = 5 mL; Midline or Central Line = 10 mL/lumen. If following IV push medication, administer flush at same rate as the IV push. Flush volume is determined by type of infusion therapy being given. For non-viscous solutions use: Peripheral IV = 5 mL Midline or Central Line = 10 mL/lumen For viscous solutions (i.e. blood components, parenteral nutrition, contrast media, or after obtaining blood sample) use: Peripheral IV = 10 mL Midline or Central Line = 20 mL/lumen Start: 01-05-2025 End: 01-05-2025 take 5-40 mL intravenously every twelve hours 5-40 mL, IntraVENous, Every 12 hours, First dose on Wed01/05/25 at 0915, Preprocedure, For Line Patency: Peripheral IV = 5 mL; Midline or Central Line = 10 mL/lumen. If following IV push medication, administer flush at same rate as the IV push. Flush volume is determined by type of infusion therapy being given. For non-viscous solutions use: Peripheral IV = 5 mL Midline or Central Line = 10 mL/lumen For viscous solutions (i.e. blood components, parenteral nutrition, contrast media, or after obtaining blood sample) use: Peripheral IV = 10 mL Midline or Central Line = 20 mL/lumen sulfamethoxazole 800 mg / trimethoprim 160 mg oral tablet (8 sources) Dihydrofolate Reductase Inhibitor Antibacterial, Sulfonamide Antimicrobial Start: 10-22-2013 End: 10-26-2013 Sulfamethoxazole-Trimethopri m 1 TABLET tablet Discontinued 1 {tbl} PO [...] bronchus and lung] 11-23-2024 Episodic Cardiac dysrhythmias (20 sources) Atrial fibrillation; Translations: [Unspecified atrial fibrillation] Onset: 10-16-2024 10-08-2024 Chronic Chronic obstructive pulmonary disease and bronchiectasis (20 sources) Chronic obstructive lung disease; Translations: [Chronic obstructive pulmonary disease, unspecified] Onset: 09-28-2005 06-27-2016 Chronic Chronic obstructive pulmonary disease and bronchiectasis (1 source) Bronchitis; Translations: [Bronchitis, not specified as acute or chronic] 10-22-2023 Episodic Deficiency and other anemia (6 sources) Anemia; Translations: [Anemia, unspecified] 12-26-2024 Episodic Deficiency and other anemia (1 source) Anemia, unspecified; Translations: [Anemia, unspecified] Onset: 01-16-2025 Episodic Diabetes mellitus without complication (2 sources) Increased glucose level; Translations: [Other abnormal glucose] Episodic Diseases of mouth; excluding dental (1 source) Oral infection; Translations: [Cellulitis and abscess of mouth] 03-22-2024 Episodic Esophageal disorders (20 sources) Gastroesophageal reflux disease; Translations: [Gastro-esophageal reflux disease without esophagitis] Onset: 03-22-2007 09-13-2007 Chronic Essential hypertension (20 sources) Benign essential hypertension; Translations: [Essential (primary) hypertension] Onset: 01-15-2025 Chronic Headache; including migraine (6 sources) Migraine; Translations: [Migraine, unspecified, not intractable, without status migrainosus] Onset: 12-01-2024 12-01-2024 Chronic Heart valve disorders (20 sources) Aortic valve stenosis; Translations: [Nonrheumatic aortic (valve) stenosis] Onset: 10-16-2024 10-03-2024 Chronic Hypertension with complications and secondary hypertension (6 sources) Benign hypertensive heart disease; Translations: [Hypertensive heart disease with heart failure] Onset: 12-01-2024 12-01-2024 Chronic Immunizations and screening for infectious disease (1 source) Needs influenza immunization; Translations: [Encounter for immunization] 02-19-2023 Episodic Mood disorders (20 sources) Dysthymia; Translations: [Dysthymic disorder] Onset: 12-01-2024 01-27-2007 Chronic Mood disorders (1 source) Mood disorders; Translations: [Depression, unspecified] Onset: 01-16-2025 Mycoses (4 sources) Candidiasis of mouth; Translations: [Candidal stomatitis] 06-15-2023 Episodic Nonspecific chest pain (3 sources) Tight chest; Translations: [Other chest pain] 12-26-2024 Episodic Osteoarthritis (20 sources) Degenerative joint disease involving multiple joints; Translations: [Polyosteoarthritis, unspecified] Onset: 01-27-2007 01-27-2007 Chronic Other aftercare (1 source) Under care of palliative care physician; Translations: [Encounter for palliative care] 11-23-2024 Episodic Other aftercare (1 source) Long-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; Translations: [CHCF (current) use of 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] 11-23-2024 Episodic Other aftercare (3 sources) 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; Translations: [[facility] (current) use of anticoagulants] 12-26-2024 Episodic Other aftercare (1 source) Encounter for palliative care; Translations: [Encounter for palliative care] Onset: 01-16-2025 Episodic Other hereditary and degenerative nervous system conditions (6 sources) Restless legs; Translations: [Restless legs syndrome] Onset: 12-01-2024 12-01-2024 Chronic Other inflammatory condition of skin (2 sources) Itching ; Translations: [Pruritus, unspecified] 12-22-2024 Episodic Other lower respiratory disease (15 sources) Respiratory insufficiency; Translations: [Other abnormalities of breathing] 07-20-2023 Episodic Other lower respiratory disease (8 sources) Hypoxia; Translations: [Hypoxemia] 07-20-2023 Episodic Other lower respiratory disease (2 sources) Hypoxemia; Translations: [Hypoxemia] 07-20-2023 Episodic Other lower respiratory disease (3 sources) Other abnormalities of breathing; Translations: [Other respiratory abnormalities] Onset: 01-16-2025 07-20-2023 Episodic Other nervous system disorders (1 source) Chronic pain; Translations: [Other chronic pain] 11-23-2024 Chronic Other nervous system disorders (1 source) Other chronic pain; Translations: [Chronic low back pain with sciatica, sciatica laterality unspecified, unspecified back pain laterality] Onset: 11-21-2024 Chronic Other screening for suspected conditions (not mental disorders or infectious disease) (20 sources) Abnormal cytological findings in specimens from other organs, systems and tissues; Translations: [Other abnormal Papanicolaou smear of cervix and cervical HPV] 01-27-2007 Episodic Other upper respiratory infections (10 sources) Viral upper respiratory tract infection; Translations: [Acute upper respiratory infection, unspecified] 07-20-2023 Episodic Residual codes; unclassified (8 sources) Tobacco use and exposure - finding; Translations: [Tobacco use] 04-03-2015 Episodic Residual codes; unclassified (1 source) Failed encounter; Translations: [No-show for appointment] 11-21-2024 Episodic Residual codes; unclassified (1 source) History of lung lobectomy; 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 [part of]] 11-23-2024 Episodic Respiratory failure; insufficiency; arrest (adult) (20 sources) Chronic hypoxemic respiratory failure; Translations: [Chronic respiratory failure with hypoxia] Onset: 02-20-2022 Chronic Spondylosis; intervertebral disc disorders; other back problems (20 sources) Chronic low back pain; Translations: [Lumbago with sciatica, unspecified side] Onset: 10-21-2010 Resolved: 07-15-2021 Episodic Substance-related disorders (20 sources) Tobacco user; Translations: [Nicotine dependence, unspecified, uncomplicated] Onset: 08-21-2005 01-27-2007 Chronic Unclassified (5 sources) Office is closed at time of discharge. Unclassified (5 sources) Evaluation for moderate to severe aortic stenosis Unclassified (1 source) NO SHOW 11-08-2024 Unclassified (6 sources) I35.0 - Nonrheumatic aortic (valve) stenosis Unclassified (1 source) No-show for appointment; Translations: [No-show for appointment] Onset: 11-21-2024 Unclassified (1 source) Hospital F/U Onset: 10-17-2024 Past or Other Problems Problem Classification Problem Date Documented Da te Episodic/Chronic Alcohol-related disorders (20 sources) History of alcohol abuse; Translations: [Alcohol abuse, in remission] Onset: 12-01-2024 Resolved: 08-11-2018 04-03-2015 Chronic Bacterial infection; unspecified site (20 sources) Bacteremia; Translations: [Bacteremia] Onset: 06-23-2016 Resolved: 03-22-2017 06-27-2016 Episodic Biliary tract disease (20 sources) Acute cholangitis due to bile duct calculus with obstruction; Translations: [Calculus of gallbladder without cholecystitis with obstruction] Onset: 06-21-2016 Resolved: 06-27-2016 06-27-2016 Episodic Cardiac dysrhythmias (11 sources) Tachycardia; Translations: [Tachycardia, unspecified] Onset: 10-16-2024 10-02-2024 Episodic Other aftercare (20 sources) Patient encounter status; Translations: [Encounter for therapeutic drug level monitoring] Onset: 05-16-2021 05-16-2021 Episodic Other gastrointestinal disorders (20 sources) Constipation; Translations: [Constipation, unspecified] Onset: 06-21-2016 Resolved: 06-27-2016 06-27-2016 Episodic Other hematologic conditions (20 sources) Lesion of spleen; Translations: [Other diseases of spleen] Onset: 06-25-2016 06-27-2016 Episodic Unclassified (1 source) Patient encounter status 06-03-2024 Results Test Name Value Interpretation Reference Range Facility 01-18-2025 36 PC to patient. LMOM to call office back. Normal [facility] 36on 01-17-2025 36 Spoke with family member on phone, patient currently napping. Family member will have patient call valve clinic back to discuss Normal [facility] 01-16-2025 CNPN Telephone (FAMPWS) DENIA GONZALEZ ([id number]) 1955 F Date Time Provider Department 01/16/25 YOSEPH FALL During your visit today, we recorded the following information about you: Judy Bliss RN 01/16/2025 12:56 PM Signed Rafa from [facility] HH calls and states that patient is complaining of coughing up brown mucous. Patient's lung sounds are diminished with rhonchi. Please review and advise, KAREN Werner Mark D, MD 01/16/2025 4:31 PM Signed I would recommend a 7 day course of Levaquin as ordered MD Zaki Chopra Kathryn, MA 01/16/2025 5:00 PM Signed Rafa notified and voiced understanding. JOS Sandy Michelle, RN 01/16/2025 5:15 PM Signed rafa returned call and states that patient can not take levaquin due to being on maltek, it is a level one flag. please review and advise on something different. HH nurse needs called back with information Allergies As of Date: 01/16/2025 (No Known Allergies) Date Reviewed: 11/22/2024 Reviewed by: Gregor Fernandez APRN.[employer] CLAIM EXAMINER - Fully Assessed Reason for Visit: Patient Update [1234] Order(s):levoFLOXacin (LEVAQUIN) 500 mg tabletTake 1 tablet by mouth once daily for 7 days.Disp: 7 tabletRfl: 0 Prescriptions as of 01/16/2025 - HYDROcodone-acetamino phen (NORCO) 5-325 mg per tablet Take 1 tablet by mouth two times a day as needed for pain for up to 30 days. - levoFLOXacin (LEVAQUIN) 500 mg tablet Take 1 tablet by mouth once daily for 7 days. - ipratropium-albuterol (DUONEB) 0.5 mg-3 mg(2.5 mg base)/3 mL nebu inhale 1 ampule via nebulizer every 4 hours if needed for wheezing. Use over 5 to 15 minutes - albuterol HFA (VENTOLIN HFA) 90 mcg/actuation inhaler Inhale 2 puffs as instructed every 4 hours as needed. - furosemide (LASIX) 20 mg tablet Take 1 tablet by mouth once daily. - naloxone 4 mg/actuation nasal spray (NARCAN) Use 1 spray in one nostril as needed for overdose. May repeat every 2 to 3 min in alternating nostrils until medical assistance is available - hydrOXYzine pamoate (VISTARIL) 25 mg capsule Take 1 capsule by mouth four times a day as needed for anxiety. - hydrOXYzine HCl (ATARAX) 25 mg tablet Take 1 tablet by mouth three times a day as needed (for itching). - busPIRone (BUSPAR) 10 mg tablet Take [...] transdermally as directed every 24 hours - verapamil ER 180 mg 24 hr [...] 500 mg by mouth once daily. - nystatin (MYCOSTATIN) [...] 1 capsule as instructed once daily. - fluticasone-salmetero l (ADVAIR DISKUS) 500-50 mcg/dose dsdv Inhale 1 [...] directed. Dx: COPD J44.9 - Nebulizer Accessories [facility] Mask and supplies as needed - PULSE OXIMETER [facility] Use as directed to check oxygen saturation level - ammonium lactate (AMLACTIN) 12 % lotion Apply 1 application to affected area as needed for Dry Skin. - losartan (COZAAR) 50 mg tablet Take 0.5 tablets by mouth once daily. - OXYGEN, HOME THERAPY, 2.5 L/min by Nasal Cannula route continuous. Use as directred - Disposable Gloves (DISPOSABLE LATEX-FREE GLOVES) [facility] 1 Box once every month. ICD 10: M15.9, J44.9, M54.40 - Incontinence Pad, Liner, Disp (POISE PADS) pads Use pads as directed. Dx: N39.46 - COMPOUNDED PRESCRIPTION BLOOD PRESSURE CUFF FOR HOME USE (more content not included)... Normal [facility] 36on 01-15-2025 [address] [facility] Basic Metabolic Profile (BMP )on 01-12-2025 BUN/CRE 24.6 RATIO High 10-20 [facility] Comment on above: Performed By: #### L 500.2500 ####[facility] [address] [place], [place], [id number] Calcium [Mass/Vol] 8.6 mg/dL Normal 7.6-11.0 [facility] Comment on above: Performed By: #### L 500.2500 ####[facility] [address] [place], [address] Chloride [Moles/Vol] 90 mmol/L Low 98-108 [facility] Comment on above: Performed By: #### L 500.2500 ####[facility] [address] [place], [address] CO2 [Moles/Vol] 40.6 mmol/L High 21.0-32.0 [facility] Comment on above: Performed By: #### L 500.2500 ####[facility] [address] [place], [address] Creatinine [Mass/Vol] 0.59 mg/dL Low 0.70-1.20 [facility] Comment on above: Performed By: #### L 500.2500 ####[facility] [address] [place], [address] GAP 10 Normal 5-15 [facility] Comment on above: Performed By: #### L 500.2500 ####[facility] [address] [place], [address] GFR/1.73 sq M.predicted among non-blacks MDRD (S/P/Bld) [Vol rate/Area] 98 mL/min/{1.73_m2} Normal >60 [facility] Comment on above: Result Comment: mL/m in/1.73m2 CKD-EPI Creatinine Equation (2020) Performed By: #### L 500.2500 ####[facility] [address] [place], [address] Glucose [Mass/Vol] 87 mg/dL Normal 70-99 [facility] Comment on above: Performed By: #### L 500.2500 ####[facility] [address] [place], [address] Potassium [Moles/Vol] 3.8 mmol/L Normal 3.3-5.1 [facility] Comment on above: Performed By: #### L 500.2500 ####[facility] [address] [place], [address] Sodium [Moles/Vol] 140 mmol/L Normal 133-145 [facility] Comment on above: Performed By: #### L 500.2500 ####[facility] [address] [place], [place], [address] Urea nitrogen [Mass/Vol] 14 mg/dL Normal 4-19 [facility] Comment on above: Performed By: #### L 500.2500 ####[facility] [address] [place], [place], [address] CNPNon 01-12-2025 CNPN Telephone (FAMPWS) DENIA GONZALEZ ([id number]) 1955 F Date Time Provider Department 01/12/25 YOSEPH FALL [facility] During your visit today, we recorded the following information about you: Padmini Abbott, KAREN 01/12/2025 11:00 AM Signed Fred with [facility] calling to report the followin) Patient had recent COPD exacerbation. Is currently coughing up rust colored sputum that pt believes is blood. Pt was off Eliquis recently for a heart cath procedure but has recently resumed it. Reports he had to draw a BMP on pt today for [place] and states that if PCP wishes to add CBC, to let him know and he can have this added on today. 2) Since the recent addition of hydroxyzine to pt's medication regimen, this caused a [id number] alert to be received by them, between hydroxyzine and Multaq medication, and also hydroxyzine and Buspar. 3) Fred states he plans to speak with Palliative Care about pt's chronic respiratory, pain and anxiety, to see what they can assist with. No call back needed to Fred, unless provider has new orders. Yoseph Fall MD 01/12/2025 2:32 PM Signed Noted OK to get CBC today also MD Kim Chopra Elizabeth, MA 01/12/2025 2:45 PM Signed Spoke to fred please place lab so we can fax to [facility] JOS Garcia Mark D, MD 01/12/2025 5:08 PM Signed Order filed MD Kim Chopra Elizabeth, MA 01/12/2025 5:27 PM Signed Faxed Michelle Alvarez MA Allergies As of Date: 01/12/2025 (No Known Allergies) Date Reviewed: 11/22/2024 Reviewed by: Gregor Fernandez APRN.[employer] INSURANCE CLAIM EXAMINER - Fully Assessed Reason for Visit: [facility] Update [Other] Primary Visit Diagnosis:Essential hypertension, benign [I10] Order(s):COMPLETE BLOOD COUNT AND DIFFERENTIAL [SQCBCDIF] Order #: [id number] FUTURE Prescriptions as of 01/12/2025 - furosemide (LASIX) 20 mg tablet Take 1 tablet by mouth once daily. - naloxone 4 mg/actuation nasal spray (NARCAN) Use 1 spray in one nostril as needed for overdose. May repeat every 2 to 3 min in alternating nostrils until medical assistance is available - hydrOXYzine pamoate (VISTARIL) 25 mg capsule Take 1 capsule by mouth four times a day as needed for anxiety. - hydrOXYzine HCl (ATARAX) 25 mg tablet Take 1 tablet by mouth three times a day as needed (for itching). - HYDROcodone-acetamino phen (NORCO) 5-325 mg per tablet Take 1 [...] transdermally as directed every 24 hours - verapamil ER 180 mg 24 hr [...] 500 mg by mouth once daily. - ipratropium-albuterol (DUONEB) 0.5 mg-3 mg(2.5 mg [...] instructed every 4 hours as needed. - fluticasone-salmetero l (ADVAIR DISKUS) 500-50 mcg/dose dsdv Inhale 1 [...] and supplies as needed - PULSE OXIMETER CONTEC Use as directed to check oxygen saturation level - ammonium lactate (AMLACTIN) 12 % lotion Apply (more content not included)... Normal [facility] 36on 01-09-2025 36 Patient is going to have her home nurse draw the BMP on Wednesday01/12/25. I faxed order [phone] and confirmed. [facility] C[facility] Telephone (FAMWS) DENIA GONZALEZ ([id number]) 1955 F Date Time Provider Department 01/09/25 YOSEPH FALL [facility] During your visit today, we recorded the following information about you: Padmini Abbott RN 01/09/2025 2:25 PM Signed 1) Request: Patient requesting refill of lorazepam 0.5 mg medication due to anxiety. No lorazepam noted on pt record. She states she was prescribed some back in April. No record of this noted. Pt asking if request can be sent to Dr. Fall anyhow, for consideration. Informed pt that this nurse would send message to provider. 2) FYI: This nurse also changed pt's next appt from Phone Call to in-person OV on 01/19, as PCP is retiring and pt will be able to see PCP one last visit for any needs. Please call patient back with reply to response to #1 above. [phone] KAREN Robledo Krystle, RN 01/09/2025 4:44 PM Signed Breanna with [facility] Receptionist Nurse calls to give update on anxiety. Breanna reports that patient scored a 10 on the PHQ-9 screening at visit today which is considered moderate depression. Patient scored a 13 on GERRY-7 screening which is considered moderate to severe anxiety. Breanna reports she will be faxing results over but not until . Breanna also requesting refill of lorazepam for patient which is not on medication list. KAREN Barney Mark D, MD 01/09/2025 5:04 PM Signed Lorazepam is contraindicated due to her chronic opioid use; ordered hydroxyzine instead for prn use MD Zaki Chopra Kathryn, MA 01/09/2025 5:07 PM Signed Breanna notified. Naima Haines MA Allergies As of Date: 01/09/2025 (No Known Allergies) Date Reviewed: 11/22/2024 Reviewed by: Gregor Fernandez APRN.[employer] INSURANCE CLAIM EXAMINER - Fully Assessed Reason for Visit: Medication Request [138] Order(s):hydrOXYzine pamoate (VISTARIL) 25 mg capsuleTake 1 capsule by mouth four times a day as needed for anxiety.Disp: 30 capsuleRfl: 2 Prescriptions as of 01/09/2025 - hydrOXYzine pamoate (VISTARIL) 25 mg capsule Take 1 capsule by mouth four times a day as needed for anxiety. - hydrOXYzine HCl (ATARAX) 25 mg tablet Take 1 tablet by mouth three times a day as needed (for itching). - HYDROcodone-acetamino phen (NORCO) 5-325 mg per tablet Take 1 [...] 500 mg by mouth once daily. - ipratropium-albuterol (DUONEB) 0.5 mg-3 mg(2.5 mg [...] instructed every 4 hours as needed. - fluticasone-salmetero l (ADVAIR DISKUS) 500-50 mcg/dose dsdv Inhale 1 [...] directed. Dx: COPD J44.9 - Nebulizer Accessories [facility] Mask and supplies as needed - PULSE OXIMETER [facility] Use as directed to check oxygen saturation level - ammonium lactate (AMLACTIN) 12 % lotion Apply 1 application to affected area as needed f (more content not included)... Normal [facility] 36on 01-08-2025 36 Spoke with patient, she has BMP lab order and will go to [place] [facility] this week to complete. Patient has not seen a dentist in a number of years, does not have dental insurance. Provided patient number to [facility] in [place] Cynthia [facility] [phone] to schedule next available appt. Advised patient to call office back with appt date/time, can always see [facility] for expedited work-up. Will schedule CTA and TAVR once dental plan known. Normal [facility] 01-08-2025 CNPN Telephone (FAMPWS) DENIA GONZALEZ ([id number]) 1955 F Date Time Provider Department 01/08/25 YOSEPH FALL FAMWS During your visit today, we recorded the following information about you: Judy Bliss RN 01/08/2025 10:06 AM Signed Edda from [facility] HH calls and states that patient was supposed to have PT evaluation last week but was unable to do. Edda asking for a delay in care order for PT. Please review and advise, KAREN Werner Jesse, APRN.[facility] 01/08/2025 11:01 AM Signed Okay for delay in care. Nelson Robert APRN.Sanjana Paulino MA 01/08/2025 4:09 PM Signed Called and received Edda's identifiable and secure VM. with information below from Provider, if questions to contact the office. Sanjana Baca MA Allergies As of Date: 01/08/2025 (No Known Allergies) Date Reviewed: 11/22/2024 Reviewed by: Gregor Fernandez APRN.[place] - Fully Assessed Reason for Visit: Delay In Care Physical Therapy [Other] Prescriptions as of 01/08/2025 - hydrOXYzine HCl (ATARAX) 25 mg tablet Take 1 tablet by mouth three times a day as needed (for itching). - HYDROcodone-acetamino phen (NORCO) 5-325 mg per tablet Take 1 [...] 500 mg by mouth once daily. - ipratropium-albuterol (DUONEB) 0.5 mg-3 mg(2.5 mg [...] instructed every 4 hours as needed. - fluticasone-salmetero l (ADVAIR DISKUS) 500-50 mcg/dose dsdv Inhale 1 [...] directed. Dx: COPD J44.9 - Nebulizer Accessories [facility] Mask and supplies as needed - PULSE OXIMETER [facility] Use as directed to check oxygen saturation level - ammonium lactate (AMLACTIN) 12 % lotion Apply 1 application to affected area as needed for Dry Skin. - losartan (COZAAR) 50 mg tablet Take 0.5 tablets by mouth once daily. - OXYGEN, HOME THERAPY, 2.5 L/min by Nasal Cannula route continuous. Use as directred - Disposable Gloves (DISPOSABLE LATEX-FREE GLOVES) [facility] 1 Box once every [...] be starting Problem List As Of Date 01/08/2025 Noted Resolved Other and unspecified alcohol dependence, unspe* 08/11/2018 LUNG CANCER [C34.10] 04/13/2005 06/27/2016 MALIG NEOPLASM BRONCH/LUNG NOS [C34.90] 12/08/2006 DYSTHYMIC DISORDER [F34.1] TOBACCO USE DISORDER [F17.200] 08/21/2005 Stage 3 severe COPD by GOLD classification ([facility]*09/28/2005 Asthma [J45.909] GENERAL OSTEOARTHROSIS [M15.9] Essential hypertension, benign (more content not included)... Normal [facility] Basic Metabolic Profile (BMP )on 01-06-2025 BUN Normal 4-19 [facility] Comment on above: Result Comment: Canc elled via OM: Order cancelled - Patient discharged Performed By: #### L 100.0100, L500.2500 ####[facility] [address] [place], [address] BUN/CRE Normal 10-20 [facility] Comment on above: Result Comment: Canc elled via OM: Order cancelled - Patient discharged Performed By: #### L 100.0100, L500.2500 ####[facility] [address] [place], [address] Calcium Normal 7.6-11.0 [facility] Comment on above: Result Comment: Canc elled via OM: Order cancelled - Patient discharged Performed By: #### L 100.0100, L500.2500 ####[facility] [address] [place], [address] CL Normal 98-108 [facility] Comment on above: Result Comment: Canc elled via OM: Order cancelled - Patient discharged Performed By: #### L 100.0100, L500.2500 ####[facility] [address] [place], [address] CO2 Normal 21.0-32.0 [facility] Comment on above: Result Comment: Canc elled via OM: Order cancelled - Patient discharged Performed By: #### L 100.0100, L500.2500 ####[facility] [address] [place], [address] CREAT,SERUM Normal 0.70-1.20 [facility] Comment on above: Result Comment: Canc elled via OM: Order cancelled - Patient discharged Performed By: #### L 100.0100, L500.2500 ####[facility] [address] [place], [address] eGFR Normal >60 [facility] Comment on above: Result Comment: Canc elled via OM: Order cancelled - Patient discharged Performed By: #### L 100.0100, L500.2500 ####[facility] [address] [place], [address] GAP Normal 5-15 [facility] Comment on above: Result Comment: Canc elled via OM: Order cancelled - Patient discharged Performed By: #### L 100.0100, L500.2500 ####[facility] [address] [place], [address] GLU Normal 70-99 [facility] Comment on above: Result Comment: Canc elled via OM: Order cancelled - Patient discharged Performed By: #### L 100.0100, L500.2500 ####[facility] [address] [place], [address] Potassium Normal 3.3-5.1 [facility] Comment on above: Result Comment: Canc elled via OM: Order cancelled - Patient discharged Performed By: #### L 100.0100, L500.2500 ####[facility] [address] [place], [address] Basic Metabolic Profile (BMP) Normal 133-145 [facility] Comment on above: Result Comment: Canc elled via OM: Order cancelled - Patient discharged Performed By: #### L 100.0100, L500.2500 ####[facility] [address] [place], [address] CBC W/Diff, Automatedon 09-1 -2024 Absolute Neut Normal 2.0-7.7 [facility] Comment on above: Result Comment: Canc elled via OM: Order cancelled - Patient discharged Performed By: #### L 100.0100, L500.2500 ####[facility] [address] [place], [address] HCT Normal 37-47 [facility] Comment on above: Result Comment: Canc elled via OM: Order cancelled - Patient discharged Performed By: #### L 100.0100, L500.2500 ####[facility] [address] [place], [address] HGB Normal 12.0-15.0 [facility] Comment on above: Result Comment: Canc elled via OM: Order cancelled - Patient discharged Performed By: #### L 100.0100, L500.2500 ####[facility] [address] [place], [address] MCH Normal 27.0-32.0 [facility] Comment on above: Result Comment: Canc elled via OM: Order cancelled - Patient discharged Performed By: #### L 100.0100, L500.2500 ####[facility] [address] [place], [address] MCHC Normal 32-36 [facility] Comment on above: Result Comment: Canc elled via OM: Order cancelled - Patient discharged Performed By: #### L 100.0100, L500.2500 ####[facility] [address] [place], [address] MCV Normal 81-99 [facility] Comment on above: Result Comment: Canc elled via OM: Order cancelled - Patient discharged Performed By: #### L 100.0100, L500.2500 ####[facility] [address] [place], [address] NEUT% Normal 47-70 [facility] Comment on above: Result Comment: Canc elled via OM: Order cancelled - Patient discharged Performed By: #### L 100.0100, L500.2500 ####[facility] [address] [place], [address] PLT Normal 150-450 [facility] Comment on above: Result Comment: Canc elled via OM: Order cancelled - Patient discharged Performed By: #### L 100.0100, L500.2500 ####[facility] [address] [place], [address] RBC Normal 4.2-5.4 [facility] Comment on above: Result Comment: Canc elled via OM: Order cancelled - Patient discharged Performed By: #### L 100.0100, L500.2500 ####[facility] [address] [place], [address] RDW CV Normal 11.6-14.6 [facility] Comment on above: Result Comment: Canc elled via OM: Order cancelled - Patient discharged Performed By: #### L 100.0100, L500.2500 ####[facility] [address] [place], [address] RDW SD Normal 35.1-43.9 [facility] Comment on above: Result Comment: Canc elled via OM: Order cancelled - Patient discharged Performed By: #### L 100.0100, L500.2500 ####[facility] [address] [place], [address] WBC Normal 4.4-11.0 [facility] Comment on above: Result Comment: Canc elled via OM: Order cancelled - Patient discharged Performed By: #### L 100.0100, L500.2500 ####[facility] [address] [place], [address] 36on 01-05-2025 36 S/p cath with minima l CAD. Plan CTA and TAVR. Pls advise to see dentist prior to valve intervention. Order placed for CTA and TAVR. Given req for BMP. mm Normal [facility] Anesthesia Noteon 01-05-2025 Anesthesia Note Sedation Plan ASA class 3 - patient with severe systemic disease Mallampati class: II - soft palate, uvula, fauces visible. Sedation plan: local anesthesia and moderate (conscious sedation) Risks, benefits, and alternatives discussed with patient. Immediate reassessment prior to sedation: Patient's status reviewed and vital signs assessed; acceptable to perform procedure and proceed to administer sedation as planned. Normal [facility] Basic Metabolic Profile (BMP )on 01-05-2025 BUN Normal -19 [facility] Comment on above: Result Comment: Canc elled via OM: Order cancelled - Patient discharged Performed By: #### L 500.2500, L100.0100 ####[facility] [address] [place], [address] BUN/CRE Normal 10-20 [facility] Comment on above: Result Comment: Canc elled via OM: Order cancelled - Patient discharged Performed By: #### L 500.2500, L100.0100 ####[facility] [address] [place], [address] Calcium Normal 7.6-11.0 [facility] Comment on above: Result Comment: Canc elled via OM: Order cancelled - Patient discharged Performed By: #### L 500.2500, L100.0100 ####[facility] [address] [place], [address] CL Normal 98-108 [facility] Comment on above: Result Comment: Canc elled via OM: Order cancelled - Patient discharged Performed By: #### L 500.2500, L100.0100 ####[facility] [address] [place], [address] CO2 Normal 21.0-32.0 [facility] Comment on above: Result Comment: Canc elled via OM: Order cancelled - Patient discharged Performed By: #### L 500.2500, L100.0100 ####[facility] [address] [place], [address] CREAT,SERUM Normal 0.70-1.20 [facility] Comment on above: Result Comment: Canc elled via OM: Order cancelled - Patient discharged Performed By: #### L 500.2500, L100.0100 ####[facility] [address] [place], [address] eGFR Normal >60 [facility] Comment on above: Result Comment: Canc elled via OM: Order cancelled - Patient discharged Performed By: #### L 500.2500, L100.0100 ####[facility] [address] [place], [address] GAP Normal 5-15 [facility] Comment on above: Result Comment: Canc elled via OM: Order cancelled - Patient discharged Performed By: #### L 500.2500, L100.0100 ####[facility] [address] [place], [address] GLU Normal 70-99 [facility] Comment on above: Result Comment: Canc elled via OM: Order cancelled - Patient discharged Performed By: #### L 500.2500, L100.0100 ####[facility] [address] [place], [address] Potassium Normal 3.3-5.1 [facility] Comment on above: Result Comment: Canc elled via OM: Order cancelled - Patient discharged Performed By: #### L 500.2500, L100.0100 ####[facility] [address] [place], [address] Basic Metabolic Profile (BMP) Normal 133-145 [facility] Comment on above: Result Comment: Canc elled via OM: Order cancelled - Patient discharged Performed By: #### L 500.2500, L100.0100 ####[facility] [address] [place], [address] CBC W/Diff, Automatedon 12-25 Absolute Neut Normal 2.0-7.7 [facility] Comment on above: Result Comment: Canc elled via OM: Order cancelled - Patient discharged Performed By: #### L 500.2500, L100.0100 ####[facility] [address] [place], [address] HCT Normal 37-47 [facility] Comment on above: Result Comment: Canc elled via OM: Order cancelled - Patient discharged Performed By: #### L 500.2500, L100.0100 ####[facility] [address] [place], [address] HGB Normal 12.0-15.0 [facility] Comment on above: Result Comment: Canc elled via OM: Order cancelled - Patient discharged Performed By: #### L 500.2500, L100.0100 ####[facility] [address] [place], [address] MCH Normal 27.0-32.0 [facility] Comment on above: Result Comment: Canc elled via OM: Order cancelled - Patient discharged Performed By: #### L 500.2500, L100.0100 ####[facility] [address] [place], [address] MCHC Normal 32-36 [facility] Comment on above: Result Comment: Canc elled via OM: Order cancelled - Patient discharged Performed By: #### L 500.2500, L100.0100 ####[facility] [address] [place], [address] MCV Normal 81-99 [facility] Comment on above: Result Comment: Canc elled via OM: Order cancelled - Patient discharged Performed By: #### L 500.2500, L100.0100 ####[facility] [address] [place], [address] NEUT% Normal 47-70 [facility] Comment on above: Result Comment: Canc elled via OM: Order cancelled - Patient discharged Performed By: #### L 500.2500, L100.0100 ####[facility] [address] [place], [address] PLT Normal 150-450 [facility] Comment on above: Result Comment: Canc elled via OM: Order cancelled - Patient discharged Performed By: #### L 500.2500, L100.0100 ####[facility] [address] [place], [address] RBC Normal 4.2-5.4 [facility] Comment on above: Result Comment: Canc elled via OM: Order cancelled - Patient discharged Performed By: #### L 500.2500, L100.0100 ####[facility] [address] [place], [address] RDW CV Normal 11.6-14.6 [facility] Comment on above: Result Comment: Canc elled via OM: Order cancelled - Patient discharged Performed By: #### L 500.2500, L100.0100 ####[facility] [address] [place], [address] RDW SD Normal 35.1-43.9 [facility] Comment on above: Result Comment: Canc elled via OM: Order cancelled - Patient discharged Performed By: #### L 500.2500, L100.0100 ####[facility] [address] [place], [address] WBC Normal 4.4-11.0 [facility] Comment on above: Result Comment: Canc elled via OM: Order cancelled - Patient discharged Performed By: #### L 500.2500, L100.0100 ####[facility] [address] [place], [address] Basic Metabolic Profile (BMP )on 01-04-2025 BUN Normal 4-19 [facility] Comment on above: Result Comment: Canc elled via OM: Order cancelled - Patient discharged Performed By: #### L 500.2500, L100.0100 ####[facility] [address] [place], [address] BUN/CRE Normal 10-20 [facility] Comment on above: Result Comment: Canc elled via OM: Order cancelled - Patient discharged Performed By: #### L 500.2500, L100.0100 ####[facility] [address] [place], [address] Calcium Normal 7.6-11.0 [facility] Comment on above: Result Comment: Canc elled via OM: Order cancelled - Patient discharged Performed By: #### L 500.2500, L100.0100 ####[facility] [address] [place], [address] CL Normal 98-108 [facility] Comment on above: Result Comment: Canc elled via OM: Order cancelled - Patient discharged Performed By: #### L 500.2500, L100.0100 ####[facility] [address] [place], [address] CO2 Normal 21.0-32.0 [facility] Comment on above: Result Comment: Canc elled via OM: Order cancelled - Patient discharged Performed By: #### L 500.2500, L100.0100 ####[facility] [address] [place], [address] CREAT,SERUM Normal 0.70-1.20 [facility] Comment on above: Result Comment: Canc elled via OM: Order cancelled - Patient discharged Performed By: #### L 500.2500, L100.0100 ####[facility] [address] [place], [address] eGFR Normal >60 [facility] Comment on above: Result Comment: Canc elled via OM: Order cancelled - Patient discharged Performed By: #### L 500.2500, L100.0100 ####[facility] [address] [place], [address] GAP Normal 5-15 [facility] Comment on above: Result Comment: Canc elled via OM: Order cancelled - Patient discharged Performed By: #### L 500.2500, L100.0100 ####[facility] [address] [place], [address] GLU Normal 70-99 [facility] Comment on above: Result Comment: Canc elled via OM: Order cancelled - Patient discharged Performed By: #### L 500.2500, L100.0100 ####[facility] [address] [place], [address] Potassium Normal 3.3-5.1 [facility] Comment on above: Result Comment: Canc elled via OM: Order cancelled - Patient discharged Performed By: #### L 500.2500, L100.0100 ####[facility] [address] [place], [address] Basic Metabolic Profile (BMP) Normal 133-145 [facility] Comment on above: Result Comment: Canc elled via OM: Order cancelled - Patient discharged Performed By: #### L 500.2500, L100.0100 ####[facility] [address] [place], [address] CBC W/Diff, Automatedon 09-1 Absolute Neut Normal 2.0-7.7 [facility] Comment on above: Result Comment: Canc elled via OM: Order cancelled - Patient discharged Performed By: #### L 500.2500, L100.0100 ####[facility] [address] [place], [address] HCT Normal 37-47 [facility] Comment on above: Result Comment: Canc elled via OM: Order cancelled - Patient discharged Performed By: #### L 500.2500, L100.0100 ####[facility] [address] [place], [address] HGB Normal 12.0-15.0 [facility] Comment on above: Result Comment: Canc elled via OM: Order cancelled - Patient discharged Performed By: #### L 500.2500, L100.0100 ####[facility] [address] [place], [address] MCH Normal 27.0-32.0 [facility] Comment on above: Result Comment: Canc elled via OM: Order cancelled - Patient discharged Performed By: #### L 500.2500, L100.0100 ####[facility] [address] [place], [address] MCHC Normal 32-36 [facility] Comment on above: Result Comment: Canc elled via OM: Order cancelled - Patient discharged Performed By: #### L 500.2500, L100.0100 ####[facility] [address] [place], [address] MCV Normal 81-99 [facility] Comment on above: Result Comment: Canc elled via OM: Order cancelled - Patient discharged Performed By: #### L 500.2500, L100.0100 ####[facility] [address] [place], [address] NEUT% Normal 47-70 [facility] Comment on above: Result Comment: Canc elled via OM: Order cancelled - Patient discharged Performed By: #### L 500.2500, L100.0100 ####[facility] [address] [place], [address] PLT Normal 150-450 [facility] Comment on above: Result Comment: Canc elled via OM: Order cancelled - Patient discharged Performed By: #### L 500.2500, L100.0100 ####[facility] [address] [place], [address] RBC Normal 4.2-5.4 [facility] Comment on above: Result Comment: Canc elled via OM: Order cancelled - Patient discharged Performed By: #### L 500.2500, L100.0100 ####[facility] [address] [place], [address] RDW CV Normal 11.6-14.6 [facility] Comment on above: Result Comment: Canc elled via OM: Order cancelled - Patient discharged Performed By: #### L 500.2500, L100.0100 ####[facility] [address] [place], [address] RDW SD Normal 35.1-43.9 [facility] Comment on above: Result Comment: Canc elled via OM: Order cancelled - Patient discharged Performed By: #### L 500.2500, L100.0100 ####[facility] [address] [place], [address] WBC Normal 4.4-11.0 [facility] Comment on above: Result Comment: Canc elled via OM: Order cancelled - Patient discharged Performed By: #### L 500.2500, L100.0100 ####[facility] [address] [place], [address] 36on 01-03-2025 36 Approval not req per [facility] updated and requested on [employer] [facility] 36 PC to Fred SOOD RN regarding proceeding with heart cath on Wednesday. Verbalized understanding. [facility] 36 Spoke with patient, she is feeling okay after hospital admission and would like to keep heart cath on for 01/05. Will await insurance PA [facility] Basic Metabolic Profile (BMP )on 01-03-2025 BUN Normal - [facility] Comment on above: Result Comment: Canc elled via OM: Order cancelled - Patient discharged Performed By: #### L 500.2500, L100.0100 ####[facility] [address] [place], [address] BUN/CRE Normal - [facility] Comment on above: Result Comment: Canc elled via OM: Order cancelled - Patient discharged Performed By: #### L 500.2500, L100.0100 ####[facility] [address] [place], [address] Calcium Normal 7.6-11.0 [facility] Comment on above: Result Comment: Canc elled via OM: Order cancelled - Patient discharged Performed By: #### L 500.2500, L100.0100 ####[facility] [address] [place], [address] CL Normal 98-108 [facility] Comment on above: Result Comment: Canc elled via OM: Order cancelled - Patient discharged Performed By: #### L 500.2500, L100.0100 ####[facility] [address] [place], [address] CO2 Normal 21.0-32.0 [facility] Comment on above: Result Comment: Canc elled via OM: Order cancelled - Patient discharged Performed By: #### L 500.2500, L100.0100 ####[facility] [address] [place], [address] CREAT,SERUM Normal 0.70-1.20 [facility] Comment on above: Result Comment: Canc elled via OM: Order cancelled - Patient discharged Performed By: #### L 500.2500, L100.0100 ####[facility] [address] [place], [address] eGFR Normal >60 [facility] Comment on above: Result Comment: Canc elled via OM: Order cancelled - Patient discharged Performed By: #### L 500.2500, L100.0100 ####[facility] [address] [place], [address] GAP Normal 5-15 [facility] Comment on above: Result Comment: Canc elled via OM: Order cancelled - Patient discharged Performed By: #### L 500.2500, L100.0100 ####[facility] [address] [place], [address] GLU Normal 70-99 [facility] Comment on above: Result Comment: Canc elled via OM: Order cancelled - Patient discharged Performed By: #### L 500.2500, L100.0100 ####[facility] [address] [place], [address] Potassium Normal 3.3-5.1 [facility] Comment on above: Result Comment: Canc elled via OM: Order cancelled - Patient discharged Performed By: #### L 500.2500, L100.0100 ####[facility] [address] [place], [address] Basic Metabolic Profile (BMP) Normal 133-145 [facility] Comment on above: Result Comment: Canc elled via OM: Order cancelled - Patient discharged Performed By: #### L 500.2500, L100.0100 ####[facility] [address] [place], [address] CBC W/Diff, Automatedon 09-1 0-2024 Absolute Neut Normal 2.0-7.7 [facility] Comment on above: Result Comment: Canc elled via OM: Order cancelled - Patient discharged Performed By: #### L 500.2500, L100.0100 ####[facility] [address] [place], [address] HCT Normal 37-47 [facility] Comment on above: Result Comment: Canc elled via OM: Order cancelled - Patient discharged Performed By: #### L 500.2500, L100.0100 ####[facility] [address] [place], [address] HGB Normal 12.0-15.0 [facility] Comment on above: Result Comment: Canc elled via OM: Order cancelled - Patient discharged Performed By: #### L 500.2500, L100.0100 ####[facility] [address] [place], [address] MCH Normal 27.0-32.0 [facility] Comment on above: Result Comment: Canc elled via OM: Order cancelled - Patient discharged Performed By: #### L 500.2500, L100.0100 ####[facility] [address] [place], [address] MCHC Normal 32-36 [facility] Comment on above: Result Comment: Canc elled via OM: Order cancelled - Patient discharged Performed By: #### L 500.2500, L100.0100 ####[facility] [address] [place], [address] MCV Normal 81-99 [facility] Comment on above: Result Comment: Canc elled via OM: Order cancelled - Patient discharged Performed By: #### L 500.2500, L100.0100 ####[facility] [address] [place], [address] NEUT% Normal 47-70 [facility] Comment on above: Result Comment: Canc elled via OM: Order cancelled - Patient discharged Performed By: #### L 500.2500, L100.0100 ####[facility] [address] [place], [address] PLT Normal 150-450 [facility] Comment on above: Result Comment: Canc elled via OM: Order cancelled - Patient discharged Performed By: #### L 500.2500, L100.0100 ####[facility] [address] [place], [address] RBC Normal 4.2-5.4 [facility] Comment on above: Result Comment: Canc elled via OM: Order cancelled - Patient discharged Performed By: #### L 500.2500, L100.0100 ####[facility] [address] [place], [address] RDW CV Normal 11.6-14.6 [facility] Comment on above: Result Comment: Canc elled via OM: Order cancelled - Patient discharged Performed By: #### L 500.2500, L100.0100 ####[facility] [address] [place], [address] RDW SD Normal 35.1-43.9 [facility] Comment on above: Result Comment: Canc elled via OM: Order cancelled - Patient discharged Performed By: #### L 500.2500, L100.0100 ####[facility] [address] [place], [address] WBC Normal 4.4-11.0 [facility] Comment on above: Result Comment: Canc elled via OM: Order cancelled - Patient discharged Performed By: #### L 500.2500, L100.0100 ####[facility] [address] [place], [address] [facility] DENIA GONZALEZ ([id number]) 1955 F Date Time Provider Department [facility]/03[facility] During [facility] visit today, we recorded the following information about you: Judy Bliss RN 01/03/2025 8:35 AM Signed Breanna LUCIO from [facility] calls and is asking for delay in care till next week. Breanna cannot see patient till next week. KAREN Werner Jesse, APRN.[employer] CLAIM EXAMINER 01/03/2025 11:22 AM Signed Noted. Okay with delay in care. Nelson Robert APRN.Judy Coleman RN 01/03/2025 11:23 AM Signed Breanna notified of below. Voices understanding. Judy Bliss RN Allergies As of Date: 01/03/2025 (No Known Allergies) Date Reviewed: 11/22/2024 Reviewed by: Gregor Fernandez APRN.[employer] CLAIM EXAMINER - Fully Assessed Reason for Visit: Delay In Care Social Work Consult [Other] Prescriptions as of 01/03/2025 - hydrOXYzine HCl (ATARAX) 25 mg tablet Take 1 tablet by mouth three times a day as needed (for itching). - HYDROcodone-acetamino phen (NORCO) 5-325 mg per tablet Take 1 [...] 500 mg by mouth once daily. - ipratropium-albuterol (DUONEB) 0.5 mg-3 mg(2.5 mg [...] instructed every 4 hours as needed. - fluticasone-salmetero l (ADVAIR DISKUS) 500-50 mcg/dose dsdv Inhale 1 [...] directed. Dx: COPD J44.9 - Nebulizer Access[place] [facility] [place] supplies as needed - PULSE OXIMETER [facility] Use as directed to check oxygen saturation level - ammonium lactate (AMLACTIN) 12 % lotion Apply 1 application to affected area as needed for Dry Skin. - losartan (COZAAR) 50 mg tablet Take 0.5 tablets by mouth once daily. - OXYGEN, HOME THERAPY, 2.5 L/min by Nasal Cannula route continuous. Use as directred - Disposable Gloves (DISPOSABLE LATEX-FREE GLOVES) [facility] [place] 1 Box once every [...] be starting Problem List As Of Date 01/03/2025 Noted Resolved Other and unspecified alcohol dependence, unspe* 08/11/2018 LUNG CANCER [C34.10] 04/13/2005 06/27/2016 MALIG NEOPLASM BRONCH/LUNG NOS [C34.90] 12/08/2006 DYSTHYMIC DISORDER [F34.1] TOBACCO USE DISORDER [F17.200] 08/21/2005 Stage 3 severe COPD by GOLD classification (HCC*09/28/2005 Asthma [J45.909] GENERAL OSTEOARTHROSIS [M15.9] Essential hypertension, benign [I10] GENERALIZED ANXIETY DIS [F41.1] ABNORMAL PAP SMEAR OF CERVIX NEC AND HPV [R89.6] ESOPHAGEAL REFLUX [K21.9] 03/22/2007 Back p (more content not included)... Normal [facility] Basic Metabolic Profile (BMP )on 01-02-2025 BUN Normal 4-19 [facility] Comment on above: Result Comment: Canc elled via OM: Order cancelled - Patient discharged Performed By: #### L 100.0100, L500.2500 ####[facility] [address] [facility] [address] BUN/CRE Normal 10-20 [facility] Comment on above: Result Comment: Canc elled via OM: Order cancelled - Patient discharged Performed By: #### L 100.0100, L500.2500 ####[facility] [address] [facility] [address] Calcium Normal 7.6-11.0 [facility] Comment on above: Result Comment: Canc elled via OM: Order cancelled - Patient discharged Performed By: #### L 100.0100, L500.2500 ####[facility] [address] [place], [address] CL Normal 98-108 [facility] Comment on above: Result Comment: Canc elled via OM: Order cancelled - Patient discharged Performed By: #### L 100.0100, L500.2500 ####[facility] [address] [facility] [address] CO2 Normal 21.0-32.0 [facility] Comment on above: Result Comment: Canc elled via OM: Order cancelled - Patient discharged Performed By: #### L 100.0100, L500.2500 ####[facility] [address] [place], [address] CREAT,SERUM Normal 0.70-1.20 [facility] Comment on above: Result Comment: Canc elled via OM: Order cancelled - Patient discharged Performed By: #### L 100.0100, L500.2500 ####[facility] [address] [place], [address] eGFR Normal >60 [facility] Comment on above: Result Comment: Canc elled via OM: Order cancelled - Patient discharged Performed By: #### L 100.0100, L500.2500 ####[facility] [address] [place], [address] GAP Normal 5-15 [facility] Comment on above: Result Comment: Canc elled via OM: Order cancelled - Patient discharged Performed By: #### L 100.0100, L500.2500 ####[facility] [address] [place], [address] GLU Normal 70-99 [facility] Comment on above: Result Comment: Canc elled via OM: Order cancelled - Patient discharged Performed By: #### L 100.0100, L500.2500 ####[facility] [address] [place], [address] Potassium Normal 3.3-5.1 [facility] Comment on above: Result Comment: Canc elled via OM: Order cancelled - Patient discharged Performed By: #### L 100.0100, L500.2500 ####[facility] [address] [place], [address] Basic Metabolic Profile (BMP) Normal 133-145 [facility] Comment on above: Result Comment: Canc elled via OM: Order cancelled - Patient discharged Performed By: #### L 100.0100, L500.2500 ####[facility] [address] [place], [address] CBC W/Diff, Automatedon 09-0 9-2024 Absolute Neut Normal 2.0-7.7 [facility] Comment on above: Result Comment: Canc elled via OM: Order cancelled - Patient discharged Performed By: #### L 100.0100, L500.2500 ####[facility] [address] [place], [address] HCT Normal 37-47 [facility] Comment on above: Result Comment: Canc elled via OM: Order cancelled - Patient discharged Performed By: #### L 100.0100, L500.2500 ####[facility] [address] [place], [address] HGB Normal 12.0-15.0 [facility] Comment on above: Result Comment: Canc elled via OM: Order cancelled - Patient discharged Performed By: #### L 100.0100, L500.2500 ####[facility] [address] [place], [address] MCH Normal 27.0-32.0 [facility] Comment on above: Result Comment: Canc elled via OM: Order cancelled - Patient discharged Performed By: #### L 100.0100, L500.2500 ####[facility] [address] [place], [address] MCHC Normal 32-36 [facility] Comment on above: Result Comment: Canc elled via OM: Order cancelled - Patient discharged Performed By: #### L 100.0100, L500.2500 ####[facility] [address] [place], [address] MCV Normal 81-99 [facility] Comment on above: Result Comment: Canc elled via OM: Order cancelled - Patient discharged Performed By: #### L 100.0100, L500.2500 ####[facility] [address] [place], [address] NEUT% Normal 47-70 [facility] Comment on above: Result Comment: Canc elled via OM: Order cancelled - Patient discharged Performed By: #### L 100.0100, L500.2500 ####[facility] [address] [place], [address] PLT Normal 150-450 [facility] Comment on above: Result Comment: Canc elled via OM: Order cancelled - Patient discharged Performed By: #### L 100.0100, L500.2500 ####[facility] [address] [place], [address] RBC Normal 4.2-5.4 [facility] Comment on above: Result Comment: Canc elled via OM: Order cancelled - Patient discharged Performed By: #### L 100.0100, L500.2500 ####[facility] [address] [place], [address] RDW CV Normal 11.6-14.6 [facility] Comment on above: Result Comment: Canc elled via OM: Order cancelled - Patient discharged Performed By: #### L 100.0100, L500.2500 ####[facility] [address] [place], [address] RDW SD Normal 35.1-43.9 [facility] Comment on above: Result Comment: Canc elled via OM: Order cancelled - Patient discharged Performed By: #### L 100.0100, L500.2500 ####[facility] [address] [place], [address] WBC Normal 4.4-11.0 [facility] Comment on above: Result Comment: Canc elled via OM: Order cancelled - Patient discharged Performed By: #### L 100.0100, L500.2500 ####[facility] [address] [place], [address] [facility] DENIA GONZALEZ ([id number]) 1955 F Date Time Provider Department 01/02/25 YOSEPH FALL During your visit today, we recorded the following information about you: Brynn Watson LPN 01/02/2025 3:30 PM Signed Rafa from [facility] Home Health calling patient was discharged from [facility] on 12/30. Patient refused OT. Skliied nursing plans 2 visits weekly for 2 weeks, then 1 visit weekly for 2 weeks. Would like to add needs Social Work verbal order, for her mood, anxiety, depression. Palliative care had seen her while she was in [facility], hope they continue to see her. Patient complaining of pain all over, upper back, shoulders, rates as a 10. Patient has drug interactions with medications, taking Multaq 400 mg twice daily and Tylenol ES 1000 mg twice daily and her flonase and few other of her medications together. He said patient may not come to her next appt, Patient difficult to get her out of her house, not sure if wanting to change it to Virtual. Please advise Nelson Robert APRN.CNP 01/02/2025 3:36 PM Signed Okay to proceed with C orders. Okay to proceed with social work orders. Okay to switch to virtual visit. AUSTIN Cool Kathryn, MA 01/03/2025 8:44 AM Signed Rafa notified and voiced understanding. Advised that pt appt has been changed to a VV. Naima Haines MA Allergies As of Date: 01/02/2025 (No Known Allergies) Date Reviewed: 11/22/2024 Reviewed by: Gregor Fernandez APRN.AUSTIN - Fully Assessed Reason for Visit: home health calling asking for verbal order [Other] Prescriptions as of 01/03/2025 - hydrOXYzine HCl (ATARAX) 25 mg tablet Take 1 tablet by mouth three times a day as needed (for itching). - HYDROcodone-acetamino phen (NORCO) 5-325 mg per tablet Take 1 [...] 500 mg by mouth once daily. - ipratropium-albuterol (DUONEB) 0.5 mg-3 mg(2.5 mg [...] instructed every 4 hours as needed. - fluticasone-salmetero l (ADVAIR DISKUS) 500-50 mcg/dose dsdv Inhale 1 [...] and supplies as needed - PULSE OXIMETER [facility] Use as directed to check oxygen saturation level - ammonium lactate (AMLACTIN) 12 % lotion Apply 1 application to affected area as needed for Dry Skin. - losartan (COZAAR) 50 mg tablet Take 0.5 tablets by mouth once daily. - OXYGEN, HOME THERAPY, 2.5 L/min by Nasal Cannula route continuous. Use as directred - Disposable Gloves (DISPOSABLE LATEX-FREE GLOVES) [facility] [place] Box once every month. ICD 10: M15.9, J44.9, M54.40 - Incontinence Pad, Liner, Disp (POISE PADS) pads Use pads as directed. Dx: N39.46 - COMPOUNDED PRESCRIPTION BLOOD PRESSURE CUFF FOR HOME USE. DX: HYPERTENSION I10. AUTOMATIC CUFF. - COMPOUNDED PRESCRIPTION Blood press (more content not included)... Normal [facility] 36on 01-01-2025 36 Pending [facility] portal and records uploaded #[id number] Normal [facility] Basic Metabolic Profile (BMP )on 01-01-2025 BUN Normal 4-19 [facility] Comment on above: Result Comment: Canc elled via OM: Order cancelled - Patient discharged Performed By: #### L 500.2500, L100.0100 ####[facility] [address] [place], [address] BUN/CRE Normal 10-20 [facility] Comment on above: Result Comment: Canc elled via OM: Order cancelled - Patient discharged Performed By: #### L 500.2500, L100.0100 ####[facility] [address] [place], [address] Calcium Normal 7.6-11.0 [facility] Comment on above: Result Comment: Canc elled via OM: Order cancelled - Patient discharged Performed By: #### L 500.2500, L100.0100 ####[facility] [address] [place], [address] CL Normal 98-108 [facility] Comment on above: Result Comment: Canc elled via OM: Order cancelled - Patient discharged Performed By: #### L 500.2500, L100.0100 ####[facility] [address] [place], [address] CO2 Normal 21.0-32.0 [facility] Comment on above: Result Comment: Canc elled via OM: Order cancelled - Patient discharged Performed By: #### L 500.2500, L100.0100 ####[facility] [address] [place], [address] CREAT,SERUM Normal 0.70-1.20 [facility] Comment on above: Result Comment: Canc elled via OM: Order cancelled - Patient discharged Performed By: #### L 500.2500, L100.0100 ####[facility] [address] [place], [address] eGFR Normal >60 [facility] Comment on above: Result Comment: Canc elled via OM: Order cancelled - Patient discharged Performed By: #### L 500.2500, L100.0100 ####[facility] [address] [place], [address] GAP Normal 5-15 [facility] Comment on above: Result Comment: Canc elled via OM: Order cancelled - Patient discharged Performed By: #### L 500.2500, L100.0100 ####[facility] [address] [place], [address] GLU Normal 70-99 [facility] Comment on above: Result Comment: Canc elled via OM: Order cancelled - Patient discharged Performed By: #### L 500.2500, L100.0100 ####[facility] [address] [place], [address] Potassium Normal 3.3-5.1 [facility] Comment on above: Result Comment: Canc elled via OM: Order cancelled - Patient discharged Performed By: #### L 500.2500, L100.0100 ####[facility] [address] [place], [address] Basic Metabolic Profile (BMP) Normal 133-145 [facility] Comment on above: Result Comment: Canc elled via OM: Order cancelled - Patient discharged Performed By: #### L 500.2500, L100.0100 ####[facility] [address] [place], [address] CBC W/Diff, Automatedon 09-0 8-2024 Absolute Neut Normal 2.0-7.7 [facility] Comment on above: Result Comment: Canc elled via OM: Order cancelled - Patient discharged Performed By: #### L 500.2500, L100.0100 ####[facility] [address] [place], [address] HCT Normal 37-47 [facility] Comment on above: Result Comment: Canc elled via OM: Order cancelled - Patient discharged Performed By: #### L 500.2500, L100.0100 ####[facility] [address] [place], [address] HGB Normal 12.0-15.0 [facility] Comment on above: Result Comment: Canc elled via OM: Order cancelled - Patient discharged Performed By: #### L 500.2500, L100.0100 ####[facility] [address] [place], [address] MCH Normal 27.0-32.0 [facility] Comment on above: Result Comment: Canc elled via OM: Order cancelled - Patient discharged Performed By: #### L 500.2500, L100.0100 ####[facility] [address] [place], [address] MCHC Normal 32-36 [facility] Comment on above: Result Comment: Canc elled via OM: Order cancelled - Patient discharged Performed By: #### L 500.2500, L100.0100 ####[facility] [address] [place], [address] MCV Normal 81-99 [facility] Comment on above: Result Comment: Canc elled via OM: Order cancelled - Patient discharged Performed By: #### L 500.2500, L100.0100 ####[facility] [address] [place], [address] NEUT% Normal 47-70 [facility] Comment on above: Result Comment: Canc elled via OM: Order cancelled - Patient discharged Performed By: #### L 500.2500, L100.0100 ####[facility] [address] [place], [address] PLT Normal 150-450 [facility] Comment on above: Result Comment: Canc elled via OM: Order cancelled - Patient discharged Performed By: #### L 500.2500, L100.0100 ####[facility] [address] [place], [address] RBC Normal 4.2-5.4 [facility] Comment on above: Result Comment: Canc elled via OM: Order cancelled - Patient discharged Performed By: #### L 500.2500, L100.0100 ####[facility] [address] [place], [address] RDW CV Normal 11.6-14.6 [facility] Comment on above: Result Comment: Canc elled via OM: Order cancelled - Patient discharged Performed By: #### L 500.2500, L100.0100 ####[facility] [address] [place], [address] RDW SD Normal 35.1-43.9 [facility] Comment on above: Result Comment: Canc elled via OM: Order cancelled - Patient discharged Performed By: #### L 500.2500, L100.0100 ####[facility] [address] [place], [address] WBC Normal 4.4-11.0 [facility] Comment on above: Result Comment: Canc elled via OM: Order cancelled - Patient discharged Performed By: #### L 500.2500, L100.0100 ####[facility] [address] [place], [address] Basic Metabolic Profile (BMP )on 12-31-2024 BUN Normal 4-19 [facility] Comment on above: Result Comment: Canc elled via OM: Order cancelled - Patient discharged Performed By: #### L 500.2500, L100.0100 ####[facility] [address] [place], [address] BUN/CRE Normal 10-20 [facility] Comment on above: Result Comment: Canc elled via OM: Order cancelled - Patient discharged Performed By: #### L 500.2500, L100.0100 ####[facility] [address] [place], [address] Calcium Normal 7.6-11.0 [facility] Comment on above: Result Comment: Canc elled via OM: Order cancelled - Patient discharged Performed By: #### L 500.2500, L100.0100 ####[facility] [address] [place], [address] CL Normal 98-108 [facility] Comment on above: Result Comment: Canc elled via OM: Order cancelled - Patient discharged Performed By: #### L 500.2500, L100.0100 ####[facility] [address] [place], [address] CO2 Normal 21.0-32.0 [facility] Comment on above: Result Comment: Canc elled via OM: Order cancelled - Patient discharged Performed By: #### L 500.2500, L100.0100 ####[facility] [address] [place], [address] CREAT,SERUM Normal 0.70-1.20 [facility] Comment on above: Result Comment: Canc elled via OM: Order cancelled - Patient discharged Performed By: #### L 500.2500, L100.0100 ####[facility] [address] [place], [address] eGFR Normal >60 [facility] Comment on above: Result Comment: Canc elled via OM: Order cancelled - Patient discharged Performed By: #### L 500.2500, L100.0100 ####[facility] [address] [place], [address] GAP Normal 5-15 [facility] Comment on above: Result Comment: Canc elled via OM: Order cancelled - Patient discharged Performed By: #### L 500.2500, L100.0100 ####[facility] [address] [place], [address] GLU Normal 70-99 [facility] Comment on above: Result Comment: Canc elled via OM: Order cancelled - Patient discharged Performed By: #### L 500.2500, L100.0100 ####[facility] [address] [place], [address] Potassium Normal 3.3-5.1 [facility] Comment on above: Result Comment: Canc elled via OM: Order cancelled - Patient discharged Performed By: #### L 500.2500, L100.0100 ####[facility] [address] [place], [address] Basic Metabolic Profile (BMP) Normal 133-145 [facility] Comment on above: Result Comment: Canc elled via OM: Order cancelled - Patient discharged Performed By: #### L 500.2500, L100.0100 ####[facility] [address] [place], [address] CBC W/Diff, Automatedon 09-0 -2024 Absolute Neut Normal 2.0-7.7 [facility] Comment on above: Result Comment: Canc elled via OM: Order cancelled - Patient discharged Performed By: #### L 500.2500, L100.0100 ####[facility] [address] [place], [address] HCT Normal 37-47 [facility] Comment on above: Result Comment: Canc elled via OM: Order cancelled - Patient discharged Performed By: #### L 500.2500, L100.0100 ####[facility] [address] [place], [address] HGB Normal 12.0-15.0 [facility] Comment on above: Result Comment: Canc elled via OM: Order cancelled - Patient discharged Performed By: #### L 500.2500, L100.0100 ####[facility] [address] [place], [address] MCH Normal 27.0-32.0 [facility] Comment on above: Result Comment: Canc elled via OM: Order cancelled - Patient discharged Performed By: #### L 500.2500, L100.0100 ####[facility] [address] [place], [address] MCHC Normal 32-36 [facility] Comment on above: Result Comment: Canc elled via OM: Order cancelled - Patient discharged Performed By: #### L 500.2500, L100.0100 ####[facility] [address] [place], [address] MCV Normal 81-99 [facility] Comment on above: Result Comment: Canc elled via OM: Order cancelled - Patient discharged Performed By: #### L 500.2500, L100.0100 ####[facility] [address] [place], [address] NEUT% Normal 47-70 [facility] Comment on above: Result Comment: Canc elled via OM: Order cancelled - Patient discharged Performed By: #### L 500.2500, L100.0100 ####[facility] [address] [place], [address] PLT Normal 150-450 [facility] Comment on above: Result Comment: Canc elled via OM: Order cancelled - Patient discharged Performed By: #### L 500.2500, L100.0100 ####[facility] [address] [place], [address] RBC Normal 4.2-5.4 [facility] Comment on above: Result Comment: Canc elled via OM: Order cancelled - Patient discharged Performed By: #### L 500.2500, L100.0100 ####[facility] [address] [place], [address] RDW CV Normal 11.6-14.6 [facility] Comment on above: Result Comment: Canc elled via OM: Order cancelled - Patient discharged Performed By: #### L 500.2500, L100.0100 ####[facility] [address] [place], [address] RDW SD Normal 35.1-43.9 [facility] Comment on above: Result Comment: Canc elled via OM: Order cancelled - Patient discharged Performed By: #### L 500.2500, L100.0100 ####[facility] [address] [place], [address] WBC Normal 4.4-11.0 [facility] Comment on above: Result Comment: Canc elled via OM: Order cancelled - Patient discharged Performed By: #### L 500.2500, L100.0100 ####[facility] [address] [place], [address] Absolute lymphocyte countOrd ered By: Lynne Schafer on 12-30-2024 Lymphocytes Auto (Unsp spec) [#/Vol] 0.47 10*3/uL Low 0.83-4.51 [facility] Absolute neutrophil countOrd ered By: Lynne Schafer on 12-30-2024 Neutrophils (Bld) [#/Vol] 7.3 10*3/uL 2.0-7.7 [facility] Anion gap in Serum or Plasma Ordered By: Lynne Schafer on 12-30-2024 Anion gap [Moles/Vol] 9 mmol/L 5-15 [facility] Automated lymphocyte count a s percentage of total leukocytesOrdered By: Lynne Schafer on 12-30-2024 Lymphocytes/100 WBC Auto (Unsp spec) 5.9 % Low 19-41 [facility] BUN/creatinine ratioOrdered By: Lynne Schafer on 12-30-2024 Urea nitrogen/Creatinine [Mass ratio] 31.0 mg/mg High 10-20 [facility] Basic Metabolic Profile (BMP )on 12-30-2024 BUN/CRE 31.0 RATIO High 10-20 [facility] Comment on above: Performed By: #### L 100.0100, L500.2500 ####[facility] [address] [place], [address] Calcium [Mass/Vol] 8.5 mg/dL Normal 7.6-11.0 [facility] Comment on above: Performed By: #### L 100.0100, L500.2500 ####[facility] [address] [place], [address] Chloride [Moles/Vol] 95 mmol/L Low 98-108 [facility] Comment on above: Performed By: #### L 100.0100, L500.2500 ####[facility] [address] [place], [address] CO2 [Moles/Vol] 37.3 mmol/L High 21.0-32.0 [facility] Comment on above: Performed By: #### L 100.0100, L500.2500 ####[facility] [address] [place], [address] Creatinine [Mass/Vol] 0.51 mg/dL Low 0.70-1.20 [facility] Comment on above: Performed By: #### L 100.0100, L500.2500 ####[facility] [address] [place], [address] ECRCL 65.36 ml/min Normal 50-250 [facility] Comment on above: Performed By: #### L 100.0100, L500.2500 ####[facility] [address] [place], [address] GAP 9 Normal 5-15 [facility] Comment on above: Performed By: #### L 100.0100, L500.2500 ####[facility] [address] [place], [address] GFR/1.73 sq M.predicted among non-blacks MDRD (S/P/Bld) [Vol rate/Area] 101 mL/min/{1.73_m2} Normal >60 [facility] Comment on above: Result Comment: mL/m in/1.73m2 CKD-EPI Creatinine Equation (2020) Performed By: #### L 100.0100, L500.2500 ####[facility] [address] [place], [address] Glucose [Mass/Vol] 124 mg/dL High 70-99 [facility] Comment on above: Performed By: #### L 100.0100, L500.2500 ####[facility] [address] [place], [address] Potassium [Moles/Vol] 4.7 mmol/L Normal 3.3-5.1 [facility] Comment on above: Performed By: #### L 100.0100, L500.2500 ####[facility] [address] [place], [address] Sodium [Moles/Vol] 141 mmol/L Normal 133-145 [facility] Comment on above: Performed By: #### L 100.0100, L500.2500 ####[facility] [address] [place], [address] Urea nitrogen [Mass/Vol] 16 mg/dL Normal 4-19 [facility] Comment on above: Performed By: #### L 100.0100, L500.2500 ####[facility] [address] [place], [address] Basophil percentageOrdered B y: Lynne Schafer on 12-30-2024 Basophils/100 WBC (Bld) 0.0 % 0-1 [facility] CBC W/Diff, Automatedon Absolute Lymph 0.47 X10 3/uL Low 0.83-4.51 [facility] Comment on above: Performed By: #### L 100.0100, L500.2500 ####[facility] [address] [place], [address] Absolute Neut 7.3 X10 3/uL Normal 2.0-7.7 [facility] Comment on above: Performed By: #### L 100.0100, L500.2500 ####[facility] [address] [place], [address] Basophils/100 WBC (Bld) 0.0 % Normal 0-1 [facility] Comment on above: Performed By: #### L 100.0100, L500.2500 ####[facility] [address] [place], [address] Eosinophils/100 WBC (Bld) 0.0 % Normal 0-5 [facility] Comment on above: Performed By: #### L 100.0100, L500.2500 ####[facility] [address] [place], [address] Erythrocyte distribution width (RBC) [Ratio] 13.7 % Normal 11.6-14.6 [facility] Comment on above: Performed By: #### L 100.0100, L500.2500 ####[facility] [address] [place], [address] Hematocrit (Bld) [Volume fraction] 28.6 % Low 37-47 [facility] Comment on above: Performed By: #### L 100.0100, L500.2500 ####[facility] [address] [place], [address] Hemoglobin (Bld) [Mass/Vol] 8.9 g/dL Low 12.0-15.0 [facility] Comment on above: Performed By: #### L 100.0100, L500.2500 ####[facility] [address] [place], [address] IG% 0.600 Normal 0.0-0.9 [facility] Comment on above: Result Comment: IG% - Immature Granulocytes (promyelocytes, myelocytes andmetamyelocytes) > 1% indicates that a LEFT SHIFT is Present. Performed By: #### L 100.0100, L500.2500 ####[facility] [address] [place], [address] Lymphocytes/100 WBC (Bld) 5.9 % Low 19-41 [facility] Comment on above: Performed By: #### L 100.0100, L500.2500 ####[facility] [address] [place], [address] MCH (RBC) [Entitic mass] 26.3 pg Low 27.0-32.0 [facility] Comment on above: Performed By: #### L 100.0100, L500.2500 ####[facility] [address] [place], [address] MCHC (RBC) [Mass/Vol] 31.1 g/dL Low 32-36 [facility] Comment on above: Performed By: #### L 100.0100, L500.2500 ####[facility] [address] [place], [address] MCV (RBC) [Entitic vol] 84.6 fL Normal 81-99 [facility] Comment on above: Performed By: #### L 100.0100, L500.2500 ####[facility] [address] [place], [address] Monocytes/100 WBC (Bld) 2.5 % Normal 0-10 [facility] Comment on above: Performed By: #### L 100.0100, L500.2500 ####[facility] [address] [place], [address] Neutrophils/100 WBC (Bld) 91.0 % High 47-70 [facility] Comment on above: Performed By: #### L 100.0100, L500.2500 ####[facility] [address] [place], [address] Nucleated RBC (Bld) [#/Vol] 0 10*3/uL Normal 0-5 [facility] Comment on above: Performed By: #### L 100.0100, L500.2500 ####[facility] [address] [place], [address] Platelet mean volume (Bld) [Entitic vol] 9.7 fL Normal 6.2-12.0 [facility] Comment on above: Performed By: #### L 100.0100, L500.2500 ####[facility] [address] [place], [address] Platelets (Bld) [#/Vol] 212 10*3/uL Normal 150-450 [facility] Comment on above: Performed By: #### L 100.0100, L500.2500 ####[facility] [address] [place], [address] RBC (Bld) [#/Vol] 3.38 10*6/uL Low 4.2-5.[address] [facility] Comment on above: Performed By: #### L 100.0100, L500.2500 ####[facility] [address] [place], [address] RDW SD 42.5 fl Normal 35.1-43.9 [facility] Comment on above: Performed By: #### L 100.0100, L500.2500 ####[facility] [address] [place], [address] WBC (Bld) [#/Vol] 8.0 10*3/uL Normal 4.4-11.0 [facility] Comment on above: Performed By: #### L 100.0100, L500.2500 ####[facility] [address] [place], [address] Carbon dioxide, total [Moles /volume] in Central venous bloodOrdered By: Lynne Schafer on 12-30-2024 CO2 [Moles/Vol] 37.3 mmol/L High 21.0-32.0 [facility] Chloride assayOrdered By: Kathi Schafer on 12-30-2024 Chloride [Moles/Vol] 95 mmol/L Low 98-108 [facility] Discharge Instructionon 09-0 Discharge Instruction Normal [facility] Eosinophil percentageOrdered By: Lynne Schafer on 12-30-2024 Eosinophils/100 WBC (Bld) 0.0 % 0-5 [facility] Erythrocyte distribution wid th ratioOrdered By: [facility] on 12-30-2024 Erythrocyte distribution width (RBC) [Ratio] 13.7 % 11.6-14.6 [facility] Erythrocyte distribution wid th standard deviationOrdered By: [facility] on 12-30-2024 Erythrocyte distribution width (RBC) [Ratio] 42.5 fl 35.1-43.9 [facility] Glomerular filtration rate ( GFR) estimation/1.73 sq m using serum, plasma, or whole bOrdered By: [facility] on 12-30-2024 GFR/1.73 sq M.predicted among non-blacks MDRD (S/P/Bld) [Vol rate/Area] 101 mL/min/{1.73_m2} >60 [facility] Comment on above: mL/min/1.73m2 CKD-EP I Creatinine Equation (2020) Hematocrit Auto (Bld) [Volum e fraction]Ordered By: [facility] on 12-30-2024 Hematocrit (Bld) [Volume fraction] 28.6 % Low 37-47 [facility] Hemoglobin measurementOrdere d By: [facility] on 12-30-2024 Hemoglobin (Bld) [Mass/Vol] 8.9 g/dL Low 12.0-15.0 [facility] Immature granulocytes/100 WB C Auto (Bld)Ordered By: [facility] 12-30-2024 Immature granulocytes/100 WBC (Bld) 0.600 % 0.0-0.9 [facility] Comment on above: IG% - Immature Granu locytes (promyelocytes, myelocytes and metamyelocytes) > 1% indicates that a LEFT SHIFT is Present. MCV (mean corpuscular volume ) determinationOrdered By: [facility] on 12-30-2024 MCV (RBC) [Entitic vol] 84.6 fL 81-99 [facility] Mean corpuscular hemoglobin (MCH) determinationOrdered By: [facility] 12-30-2024 MCH (RBC) [Entitic mass] 26.3 pg Low 27.0-32.0 [facility] Mean corpuscular hemoglobin concentration (MCHC) determinationOrdered By: [facility] 12-30-2024 MCHC (RBC) [Mass/Vol] 31.1 g/dL Low 32-36 [facility] Mean platelet volume determi nationOrdered By: Lynne Schafer on 12-30-2024 Platelet mean volume (Bld) [Entitic vol] 9.7 fL 6.2-12.0 [facility] Monocyte percentageOrdered B y: Lynne Schafer on 12-30-2024 Monocytes/100 WBC (Bld) 2.5 % 0-10 [facility] Neutrophil percentageOrdered By: Lynne Schafer on 12-30-2024 Neutrophils/100 WBC (Bld) 91.0 % High 47-70 [facility] Nucleated red blood cell per centageOrdered By: Lynne Schafer on 12-30-2024 Nucleated RBC/100 WBC (Bld) [Ratio] 0 % 0-5 [facility] Platelet countOrdered By: Na kathi Schafer on 12-30-2024 Platelets (Bld) [#/Vol] 212 10*3/uL 150-450 [facility] Potassium measurement (mass/ volume)Ordered By: Lynne Schafer on 12-30-2024 Potassium (Unsp spec) [Mass/Vol] 4.7 mmol/L 3.3-5.1 [facility] RBC Auto (Bld) [#/Vol]Ordere d By: Lynne Schafer on 12-30-2024 RBC (Bld) [#/Vol] 3.38 10*6/uL Low 4.2-5.[address] [facility] Serum creatinine measurement (mass/volume)Ordered By: Lynne Schafer on 12-30-2024 Creatinine [Mass/Vol] 0.51 mg/dL Low 0.70-1.20 [facility] Serum glucose measurement (m ass/volume)Ordered By: Lynne Schafer on 12-30-2024 Glucose [Mass/Vol] 124 mg/dL High 70-99 [facility] Serum or plasma calcium kadi urement (mass/volume)Ordered By: Lynne Schafer on 12-30-2024 Calcium [Mass/Vol] 8.5 mg/dL 7.6-11.0 [facility] Serum or plasma urea nitroge n measurement (mass/volume)Ordered By: Lynne Schafer on 12-30-2024 Urea nitrogen [Mass/Vol] 16 mg/dL 4-19 [facility] Sodium levelOrdered By: Lynnesheba Schafer on 12-30-2024 Sodium [Moles/Vol] 141 mmol/L 133-145 [facility] White blood cell (WBC) count Ordered By: Lynnesheba Schafer on 12-30-2024 WBC (Bld) [#/Vol] 8.0 10*3/uL 4.4-11.0 [facility] Basic Metabolic Profile (BMP )on 12-29-2024 BUN/CRE 37.4 RATIO High 10-20 [facility] Comment on above: Performed By: #### L 500.2500, L100.0100 ####[facility] [address] [place], [address] Calcium [Mass/Vol] 8.7 mg/dL Normal 7.6-11.0 [facility] Comment on above: Performed By: #### L 500.2500, L100.0100 ####[facility] [address] [place], [address] Chloride [Moles/Vol] 94 mmol/L Low 98-108 [facility] Comment on above: Performed By: #### L 500.2500, L100.0100 ####[facility] [address] [place], [address] CO2 [Moles/Vol] 38.0 mmol/L High 21.0-32.0 [facility] Comment on above: Performed By: #### L 500.2500, L100.0100 ####[facility] [address] [place], [address] Creatinine [Mass/Vol] 0.55 mg/dL Low 0.70-1.20 [facility] Comment on above: Performed By: #### L 500.2500, L100.0100 ####[facility] [address] [place], [address] ECRCL 65.36 ml/min Normal 50-250 [facility] Comment on above: Performed By: #### L 500.2500, L100.0100 ####[facility] [address] [place], [address] GAP 8 Normal 5-15 [facility] Comment on above: Performed By: #### L 500.2500, L100.0100 ####[facility] [address] [place], [address] GFR/1.73 sq M.predicted among non-blacks MDRD (S/P/Bld) [Vol rate/Area] 99 mL/min/{1.73_m2} Normal >60 [facility] Comment on above: Result Comment: mL/m in/1.73m2 CKD-EPI Creatinine Equation (2020) Performed By: #### L 500.2500, L100.0100 ####[facility] [address] [place], [address] Glucose [Mass/Vol] 97 mg/dL Normal 70-99 [facility] Comment on above: Performed By: #### L 500.2500, L100.0100 ####[facility] [address] [place], [address] Potassium [Moles/Vol] 4.4 mmol/L Normal 3.3-5.1 [facility] Comment on above: Performed By: #### L 500.2500, L100.0100 ####[facility] [address] [place], [address] Sodium [Moles/Vol] 140 mmol/L Normal 133-145 [facility] Comment on above: Performed By: #### L 500.2500, L100.0100 ####[facility] [address] [place], [address] Urea nitrogen [Mass/Vol] 21 mg/dL High 4-19 [facility] Comment on above: Performed By: #### L 500.2500, L100.0100 ####[facility] [address] [place], [address] CBC W/Diff, Automatedon 09-0 5-2025 Absolute Lymph 0.49 X10 3/uL Low 0.83-4.51 [facility] Comment on above: Performed By: #### L 500.2500, L100.0100 ####[facility] [address] [place], [address] Absolute Neut 6.8 X10 3/uL Normal 2.0-7.7 [facility] Comment on above: Performed By: #### L 500.2500, L100.0100 ####[facility] [address] [place], [address] Basophils/100 WBC (Bld) 0.1 % Normal 0-1 [facility] Comment on above: Performed By: #### L 500.2500, L100.0100 ####[facility] [address] [place], [address] Eosinophils/100 WBC (Bld) 0.0 % Normal 0-5 [facility] Comment on above: Performed By: #### L 500.2500, L100.0100 ####[facility] [address] [place], [address] Erythrocyte distribution width (RBC) [Ratio] 14.0 % Normal 11.6-14.6 [facility] Comment on above: Performed By: #### L 500.2500, L100.0100 ####[facility] [address] [place], [address] Hematocrit (Bld) [Volume fraction] 26.6 % Low 37-47 [facility] Comment on above: Performed By: #### L 500.2500, L100.0100 ####[facility] [address] [place], [address] Hemoglobin (Bld) [Mass/Vol] 8.4 g/dL Low 12.0-15.0 [facility] Comment on above: Performed By: #### L 500.2500, L100.0100 ####[facility] [address] [place], [address] IG% 0.700 Normal 0.0-0.9 [facility] Comment on above: Result Comment: IG% - Immature Granulocytes (promyelocytes, myelocytes andmetamyelocytes) > 1% indicates that a LEFT SHIFT is Present. Performed By: #### L 500.2500, L100.0100 ####[facility] [address] [place], [address] Lymphocytes/100 WBC (Bld) 6.5 % Low 19-41 [facility] Comment on above: Performed By: #### L 500.2500, L100.0100 ####[facility] [address] [place], [address] MCH (RBC) [Entitic mass] 26.7 pg Low 27.0-32.0 [facility] Comment on above: Performed By: #### L 500.2500, L100.0100 ####[facility] [address] [place], [address] MCHC (RBC) [Mass/Vol] 31.6 g/dL Low 32-36 [facility] Comment on above: Performed By: #### L 500.2500, L100.0100 ####[facility] [address] [place], [address] MCV (RBC) [Entitic vol] 84.4 fL Normal 81-99 [facility] Comment on above: Performed By: #### L 500.2500, L100.0100 ####[facility] [address] [place], [address] Monocytes/100 WBC (Bld) 2.8 % Normal 0-10 [facility] Comment on above: Performed By: #### L 500.2500, L100.0100 ####[facility] [address] [place], [address] Neutrophils/100 WBC (Bld) 89.9 % High 47-70 [facility] Comment on above: Performed By: #### L 500.2500, L100.0100 ####[facility] [address] [place], [address] Nucleated RBC (Bld) [#/Vol] 0 10*3/uL Normal 0-5 [facility] Comment on above: Performed By: #### L 500.2500, L100.0100 ####[facility] [address] [place], [address] Platelet mean volume (Bld) [Entitic vol] 9.3 fL Normal 6.2-12.0 [facility] Comment on above: Performed By: #### L 500.2500, L100.0100 ####[facility] [address] [place], [address] Platelets (Bld) [#/Vol] 169 10*3/uL Normal 150-450 [facility] Comment on above: Performed By: #### L 500.2500, L100.0100 ####[facility] [address] [place], [address] RBC (Bld) [#/Vol] 3.15 10*6/uL Low 4.2-5.[address] [facility] Comment on above: Performed By: #### L 500.2500, L100.0100 ####[facility] [address] [place], [address] RDW SD 43.0 fl Normal 35.1-43.9 [facility] Comment on above: Performed By: #### L 500.2500, L100.0100 ####[facility] [address] [place], [address] WBC (Bld) [#/Vol] 7.6 10*3/uL Normal 4.4-11.0 [facility] Comment on above: Performed By: #### L 500.2500, L100.0100 ####[facility] [address] [place], [address] 12 Lead EKGon 12-28-2024 12 Lead EKG Normal [facility] Basic Metabolic Profile (BMP )on 12-28-2024 BUN/CRE 39.3 RATIO High 10-20 [facility] Comment on above: Performed By: #### L 100.0100, L500.2500 ####[facility] [address] [place], [address] Calcium [Mass/Vol] 9.1 mg/dL Normal 7.6-11.0 [facility] Comment on above: Performed By: #### L 100.0100, L500.2500 ####[facility] [address] [place], [address] Chloride [Moles/Vol] 93 mmol/L Low 98-108 [facility] Comment on above: Performed By: #### L 100.0100, L500.2500 ####[facility] [address] [place], [address] CO2 [Moles/Vol] 37.2 mmol/L High 21.0-32.0 [facility] Comment on above: Performed By: #### L 100.0100, L500.2500 ####[facility] [address] [place], [address] Creatinine [Mass/Vol] 0.59 mg/dL Low 0.70-1.20 [facility] Comment on above: Performed By: #### L 100.0100, L500.2500 ####[facility] [address] [place], [address] ECRCL 64.18 ml/min Normal 50-250 [facility] Comment on above: Performed By: #### L 100.0100, L500.2500 ####[facility] [address] [place], [address] GAP 9 Normal 5-15 [facility] Comment on above: Performed By: #### L 100.0100, L500.2500 ####[facility] [address] [place], [address] GFR/1.73 sq M.predicted among non-blacks MDRD (S/P/Bld) [Vol rate/Area] 97 mL/min/{1.73_m2} Normal >60 [facility] Comment on above: Result Comment: mL/m in/1.73m2 CKD-EPI Creatinine Equation (2020) Performed By: #### L 100.0100, L500.2500 ####[facility] [address] [place], [address] Glucose [Mass/Vol] 132 mg/dL High 70-99 [facility] Comment on above: Performed By: #### L 100.0100, L500.2500 ####[facility] [address] [place], [address] Potassium [Moles/Vol] 4.6 mmol/L Normal 3.3-5.1 [facility] Comment on above: Performed By: #### L 100.0100, L500.2500 ####[facility] [address] [place], [address] Sodium [Moles/Vol] 139 mmol/L Normal 133-145 [facility] Comment on above: Performed By: #### L 100.0100, L500.2500 ####[facility] [address] [place], [address] Urea nitrogen [Mass/Vol] 23 mg/dL High 4-19 [facility] Comment on above: Performed By: #### L 100.0100, L500.2500 ####[facility] [address] [place], [address] CBC W/Diff, Automatedon 09-0 4-2024 Absolute Lymph 0.58 X10 3/uL Low 0.83-4.51 [facility] Comment on above: Performed By: #### L 100.0100, L500.2500 ####[facility] [address] [place], [address] Absolute Neut 9.6 X10 3/uL High 2.0-7.7 [facility] Comment on above: Performed By: #### L 100.0100, L500.2500 ####[facility] [address] [place], [address] Basophils/100 WBC (Bld) 0.1 % Normal 0-1 [facility] Comment on above: Performed By: #### L 100.0100, L500.2500 ####[facility] [address] [place], [address] Eosinophils/100 WBC (Bld) 0.0 % Normal 0-5 [facility] Comment on above: Performed By: #### L 100.0100, L500.2500 ####[facility] [address] [place], [address] Erythrocyte distribution width (RBC) [Ratio] 13.8 % Normal 11.6-14.6 [facility] Comment on above: Performed By: #### L 100.0100, L500.2500 ####[facility] [address] [place], [address] Hematocrit (Bld) [Volume fraction] 26.4 % Low 37-47 [facility] Comment on above: Performed By: #### L 100.0100, L500.2500 ####[facility] [address] [place], [address] Hemoglobin (Bld) [Mass/Vol] 8.5 g/dL Low 12.0-15.0 [facility] Comment on above: Performed By: #### L 100.0100, L500.2500 ####[facility] [address] [place], [address] IG% 0.800 Normal 0.0-0.9 [facility] Comment on above: Result Comment: IG% - Immature Granulocytes (promyelocytes, myelocytes andmetamyelocytes) > 1% indicates that a LEFT SHIFT is Present. Performed By: #### L 100.0100, L500.2500 ####[facility] [address] [place], [address] Lymphocytes/100 WBC (Bld) 5.5 % Low 19-41 [facility] Comment on above: Performed By: #### L 100.0100, L500.2500 ####[facility] [address] [place], [address] MCH (RBC) [Entitic mass] 27.1 pg Normal 27.0-32.0 [facility] Comment on above: Performed By: #### L 100.0100, L500.2500 ####[facility] [address] [place], [address] MCHC (RBC) [Mass/Vol] 32.2 g/dL Normal 32-36 [facility] Comment on above: Performed By: #### L 100.0100, L500.2500 ####[facility] [address] [place], [address] MCV (RBC) [Entitic vol] 84.1 fL Normal 81-99 [facility] Comment on above: Performed By: #### L 100.0100, L500.2500 ####[facility] [address] [place], [address] Monocytes/100 WBC (Bld) 3.0 % Normal 0-10 [facility] Comment on above: Performed By: #### L 100.0100, L500.2500 ####[facility] [address] [place], [address] Neutrophils/100 WBC (Bld) 90.6 % High 47-70 [facility] Comment on above: Performed By: #### L 100.0100, L500.2500 ####[facility] [address] [place], [address] Nucleated RBC (Bld) [#/Vol] 0 10*3/uL Normal 0-5 [facility] Comment on above: Performed By: #### L 100.0100, L500.2500 ####[facility] [address] [place], [address] Platelet mean volume (Bld) [Entitic vol] 9.4 fL Normal 6.2-12.0 [facility] Comment on above: Performed By: #### L 100.0100, L500.2500 ####[facility] [address] [place], [address] Platelets (Bld) [#/Vol] 203 10*3/uL Normal 150-450 [facility] Comment on above: Performed By: #### L 100.0100, L500.2500 ####[facility] [address] [place], [address] RBC (Bld) [#/Vol] 3.14 10*6/uL Low 4.2-5.[address] [facility] Comment on above: Performed By: #### L 100.0100, L500.2500 ####[facility] [address] [place], [address] RDW SD 42.5 fl Normal 35.1-43.9 [facility] Comment on above: Performed By: #### L 100.0100, L500.2500 ####[facility] [address] [place], [address] WBC (Bld) [#/Vol] 10.6 10*3/uL Normal 4.4-11.[address] [facility] Comment on above: Performed By: #### L 100.0100, L500.2500 ####[facility] [address] [place], [address] EGD Reporton 12-28-2024 EGD Report Normal [facility] MR/CON.PCM.GIon 12-28-2024 MR/CON.PCM.GI Normal [facility] MR/OP.PROVATon 12-28-2024 MR/OP.PROVAT Normal [facility] MR/POSTOP.ANEon 12-28-2024 MR/POSTOP.ANE Normal [facility] MR/JRDIEVKY7eg 12-28-2024 MR/POSTOPAN2 Normal [facility] Absolute lymphocyte countOrd ered By: Charlotte on 12-27-2024 Lymphocytes Auto (Unsp spec) [#/Vol] 0.44 10*3/uL Low 0.83-4.51 [facility] Absolute neutrophil countOrd ered By: on 12-27-2024 Neutrophils (Bld) [#/Vol] 4.8 10*3/uL 2.0-7.7 [facility] Anion gap in Serum or Plasma Ordered By: Charlotte on 12-27-2024 Anion gap [Moles/Vol] 9 mmol/L 5-15 [facility] Automated lymphocyte count a s percentage of total leukocytesOrdered By: on 12-27-2024 Lymphocytes/100 WBC Auto (Unsp spec) 8.1 % Low 19-41 [facility] BUN/creatinine ratioOrdered By: on 12-27-2024 Urea nitrogen/Creatinine [Mass ratio] 29.6 mg/mg High 10-20 [facility] Basophil percentageOrdered B y: on 12-27-2024 Basophils/100 WBC (Bld) 0.2 % 0-1 [facility] Bilirubin, totalOrdered By: on 12-27-2024 Bilirubin [Mass/Vol] 0.31 mg/dL 0.00-1.30 [facility] CBC W/Diff, Automatedon Absolute Lymph 0.44 X10 3/uL Low 0.83-4.51 [facility] Comment on above: Performed By: #### L 100.0100, L500.4050 ####[facility] [address] [place], [address] Absolute Neut 4.8 X10 3/uL Normal 2.0-7.7 [facility] Comment on above: Performed By: #### L 100.0100, L500.4050 ####[facility] [address] [place], [address] Basophils/100 WBC (Bld) 0.2 % Normal 0-1 [facility] Comment on above: Performed By: #### L 100.0100, L500.4050 ####[facility] [address] [place], [address] Eosinophils/100 WBC (Bld) 0.0 % Normal 0-5 [facility] Comment on above: Performed By: #### L 100.0100, L500.4050 ####[facility] [address] [place], [address] Erythrocyte distribution width (RBC) [Ratio] 14.2 % Normal 11.6-14.6 [facility] Comment on above: Performed By: #### L 100.0100, L500.4050 ####[facility] [address] [place], [address] Hematocrit (Bld) [Volume fraction] 26.3 % Low 37-47 [facility] Comment on above: Performed By: #### L 100.0100, L500.4050 ####[facility] [address] [place], [address] Hemoglobin (Bld) [Mass/Vol] 8.5 g/dL Low 12.0-15.0 [facility] Comment on above: Performed By: #### L 100.0100, L500.4050 ####[facility] [address] [place], [address] IG% 1.300 High 0.0-0.9 [facility] Comment on above: Result Comment: IG% - Immature Granulocytes (promyelocytes, myelocytes andmetamyelocytes) > 1% indicates that a LEFT SHIFT is Present. Performed By: #### L 100.0100, L500.4050 ####[facility] [address] [place], [address] Lymphocytes/100 WBC (Bld) 8.1 % Low 19-41 [facility] Comment on above: Performed By: #### L 100.0100, L500.4050 ####[facility] [address] [place], [address] MCH (RBC) [Entitic mass] 27.1 pg Normal 27.0-32.0 [facility] Comment on above: Performed By: #### L 100.0100, L500.4050 ####[facility] [address] [place], [address] MCHC (RBC) [Mass/Vol] 32.3 g/dL Normal 32-36 [facility] Comment on above: Performed By: #### L 100.0100, L500.4050 ####[facility] [address] [place], [address] MCV (RBC) [Entitic vol] 83.8 fL Normal 81-99 [facility] Comment on above: Performed By: #### L 100.0100, L500.4050 ####[facility] [address] [place], [address] Monocytes/100 WBC (Bld) 1.7 % Normal 0-10 [facility] Comment on above: Performed By: #### L 100.0100, L500.4050 ####[facility] [address] [place], [address] Neutrophils/100 WBC (Bld) 88.7 % High 47-70 [facility] Comment on above: Performed By: #### L 100.0100, L500.4050 ####[facility] [address] [place], [address] Nucleated RBC (Bld) [#/Vol] 0 10*3/uL Normal 0-5 [facility] Comment on above: Performed By: #### L 100.0100, L500.4050 ####[facility] [address] [place], [address] Platelet mean volume (Bld) [Entitic vol] 10.0 fL Normal 6.2-12.0 [facility] Comment on above: Performed By: #### L 100.0100, L500.4050 ####[facility] [address] [place], [address] Platelets (Bld) [#/Vol] 188 10*3/uL Normal 150-450 [facility] Comment on above: Performed By: #### L 100.0100, L500.4050 ####[facility] [address] [place], [address] RBC (Bld) [#/Vol] 3.14 10*6/uL Low 4.2-5.[address] [facility] Comment on above: Performed By: #### L 100.0100, L500.4050 ####[facility] [address] [place], [address] RDW SD 42.8 fl Normal 35.1-43.9 [facility] Comment on above: Performed By: #### L 100.0100, L500.4050 ####[facility] [address] [place], [address] WBC (Bld) [#/Vol] 5.4 10*3/uL Normal 4.4-11.0 [facility] Comment on above: Performed By: #### L 100.0100, L500.4050 ####[facility] [address] [place], [address] [place] [facility] DENIA GONZALEZ ([id number]) 1955 F Date Time Provider Department 12[facility]27[facility] During [facility] today, we recorded the following information about you: Sukhi Marrero RN 12/27/2024 2:48 PM Signed Palma Anguiano with [facility] calls to let provider know that patient was admitted to [facility] last evening for COPD exacerbation. [facility]. KAREN Barney Jesse, APRN.[place] 01/01/2025 8:58 AM Signed Noted. Patient has follow up with Dr. Fall scheduled on 01/19. Nelson Robert APRN.[place] Allergies As of Date: 12/27/2024 (No Known Allergies) Date Reviewed: 11/22/2024 Reviewed by: Gregor Fernandez APRN.[place] - Fully Assessed Reason for Visit: Patient Update [1234] Prescriptions as of 01/01/2025 - hydrOXYzine HCl (ATARAX) 25 mg tablet Take 1 tablet by mouth three times a day as needed (for itching). - HYDROcodone-acetamino phen (NORCO) 5-325 mg per tablet Take 1 [...] 500 mg by mouth once daily. - ipratropium-albuterol (DUONEB) 0.5 mg-3 mg(2.5 mg [...] instructed every 4 hours as needed. - fluticasone-salmetero l (ADVAIR DISKUS) 500-50 mcg/dose dsdv Inhale 1 [...] directed. Dx: COPD J44.9 - Nebulizer Accessories [facility] [place] Mask and supplies as needed - PULSE OXIMETER [facility] Use as directed to check oxygen saturation level - ammonium lactate (AMLACTIN) 12 % lotion Apply 1 application to affected area as needed for Dry Skin. - losartan (COZAAR) 50 mg tablet Take 0.5 tablets by mouth once daily. - OXYGEN, HOME THERAPY, 2.5 L/min by Nasal Cannula route continuous. Use as directred - Disposable Gloves (DISPOSABLE LATEX-FREE GLOVES) [facility] [place] 1 Box once every [...] be starting Problem List As Of Date 12/27/2024 Noted Resolved Other and unspecified alcohol dependence, [...] 03/22/2007 Back pain [M54.9] 10/21/2010 07/15/2021 Cholelithiasis (more content not included)... Normal [facility] Carbon dioxide, total [Moles /volume] in Central venous bloodOrdered By: Dionne Porter on 12-27-2024 CO2 [Moles/Vol] 39.4 mmol/L High 21.0-32.0 [facility] Chloride assayOrdered By: Lidya Porter on 12-27-2024 Chloride [Moles/Vol] 92 mmol/L Low 98-108 [facility] Comprehensive Metabolic Prof ilon 12-27-2024 Potassium [Moles/Vol] 3.0 mmol/L Low 3.3-5.1 [facility] Comment on above: Result Comment: Hemo lysis present, Results??could be affected.?? AMENDED REPORT 12/27/24834 K previously reported as: 4.2 mmol/LHemolysis present, Results??could be affected.?? Performed By: #### L 100.0100, L500.4050 ####[facility] [address] [facility] [place], [place], [id number] Electrocardiogram reportOrde red By: Junito Madrid on 12-27-2024 EKG study [facility] [address] [place] [address] 12 Lead EKG 12/26/24 1403 MR#: [id number] Acct: [id number] Name: DENIA GONZALEZ Rep #:[id number] : 1955 69 From: Junito contreras MD Attending Dr: Dr. Lynne Schafer MD Status: ADM IN Ordering Dr: Marcel Zarate MD Date: 12/26/24 Location: U Sex: F C Admitted: 12/26/24 Test Reason : ANXIETY Blood Pressure : */* mmHG Vent. Rate : 99 BPM Atrial Rate : 99 BPM P-R Int : 166 ms QRS Dur : 76 ms QT Int : 356 ms P-R-T Axes : 80 44 77 degrees QTcB Int : 456 ms Normal sinus rhythm Right atrial enlargement Borderline ECG Confirmed by Junito Madrid ([id number]), design editor LEORA RESTREPO ([id number]) on 12/27/2024 8:19:45 AM Referred By: ER/AK Confirmed By: Junito Madrid 12/27/24 0819 Date _ Junito Madrid MD CC: Dr. Marcel Zarate MD; Dr. Yoseph Fall MD; Dr. Lynne Schafer MD ~ Signed [facility] Work Phone: Eosinophil percentageOrdered By: Dionne White on 12-27-2024 Eosinophils/100 WBC (Bld) 0.0 % 0-5 [facility] Erythrocyte distribution wid th ratioOrdered By: Dionne White on 12-27-2024 Erythrocyte distribution width (RBC) [Ratio] 14.2 % 11.6-14.6 [facility] Erythrocyte distribution wid th standard deviationOrdered By: [facility] White on 12-27-2024 Erythrocyte distribution width (RBC) [Ratio] 42.8 fl 35.1-43.9 [facility] Ferritinon 12-27-2024 Ferritin [Mass/Vol] 35 ng/mL Normal 22-[address] [facility] Comment on above: Performed By: #### L 503.6550, L503.6030 ####[facility] [address] [place], [place], [id number] Glomerular filtration rate ( GFR) estimation/1.73 sq m using serum, plasma, or whole bOrdered By: Dionne White on 12-27-2024 GFR/1.73 sq M.predicted among non-blacks MDRD (S/P/Bld) [Vol rate/Area] 97 mL/min/{1.73_m2} >60 [facility] Comment on above: mL/min/1.73m2 CKD-EP I Creatinine Equation (2020) Gram Stainon 12-27-2024 GS Acceptable Specimen? No (>25 Epithelial cells per/lpf) Gram Stain 4+ Gram positive rods 3+ Gram negative rods 2+ Epithelial cells Normal [facility] Comment on above: Performed By: #### M 100.2000, M100.2400 ####[facility] [address] [place], [place], [id number] HH, Hemoglobin AND Hematocri ton 09-03-2025 Hematocrit (Bld) [Volume fraction] 29.0 % Low 37-47 [facility] Comment on above: Performed By: #### L 100.0600 ####[facility] [address] [place], [address] Hemoglobin (Bld) [Mass/Vol] 9.3 g/dL Low 12.0-15.0 [facility] Comment on above: Performed By: #### L 100.0600 ####[facility] [address] [place], [address] Hematocrit Auto (Bld) [Volum e fraction]Ordered By: Dionne Porter on 12-27-2024 Hematocrit (Bld) [Volume fraction] 26.3 % Low 37-47 [facility] Hemoglobin measurementOrdere d By: Dionne Porter on 12-27-2024 Hemoglobin (Bld) [Mass/Vol] 8.5 g/dL Low 12.0-15.0 [facility] Immature granulocytes/100 WB C Auto (Bld)Ordered By: Dionne Porter on 12-27-2024 Immature granulocytes/100 WBC (Bld) 1.300 % High 0.0-0.9 [facility] Comment on above: IG% - Immature Granu locytes (promyelocytes, myelocytes and metamyelocytes) > 1% indicates that a LEFT SHIFT is Present. Iron measurement (mass/mass) Ordered By: Lynne Schafer on 12-27-2024 Iron (Unsp spec) [Mass/Mass] 17 ug/dL Low 50-170 [facility] Iron+Iron Binding Capacityon 12-27-2024 Iron [Mass/Vol] 17 ug/dL Low 50-170 [facility] Comment on above: Order Comment: off o f am blood work Performed By: #### L 503.6550, L573.6030 ####[facility] [address] [place], [place], [id number] IRON SATURATION 6.0 Low 13-59 [facility] Comment on above: Order Comment: off o f am blood work Performed By: #### L 503.6550, L503.6030 ####[facility] [address] [place], [address] TIBC 305 ug/dL Normal 250-450 [facility] Comment on above: Order Comment: off o f am blood work Performed By: #### L 503.6550, L503.6030 ####[facility] [address] [place], [address] UIBC 288 ug/dL Normal 228-428 [facility] Comment on above: Order Comment: off o f am blood work Performed By: #### L 503.6550, L503.6030 ####[facility] [address] [place], [address] Laboratory - Chemistry and C hemistry - challengeOrdered By: Dionne Porter on 12-27-2024 AST [Catalytic activity/Vol] 20 U/L <32 [facility] MCV (mean corpuscular volume ) determinationOrdered By: Dionne Porter on 12-27-2024 MCV (RBC) [Entitic vol] 83.8 fL 81-99 [facility] MR/CON.PCM.PAon 12-27-2024 MR/CON.PCM.PA Normal [facility] Mean corpuscular hemoglobin (MCH) determinationOrdered By: Dionne Charlotte on 12-27-2024 MCH (RBC) [Entitic mass] 27.1 pg 27.0-32.0 [facility] Mean corpuscular hemoglobin concentration (MCHC) determinationOrdered By: Dionne Charlotte on 12-27-2024 MCHC (RBC) [Mass/Vol] 32.3 g/dL 32-36 [facility] Mean platelet volume determi nationOrdered By: Dionne Charlotte on 12-27-2024 Platelet mean volume (Bld) [Entitic vol] 10.0 fL 6.2-12.0 [facility] Monocyte percentageOrdered B y: Dionne Porter on 12-27-2024 Monocytes/100 WBC (Bld) 1.7 % 0-10 [facility] Neutrophil percentageOrdered By: Charlotte on 12-27-2024 Neutrophils/100 WBC (Bld) 88.7 % High 47-70 [facility] No Panel InformationOrdered By: Lynnesheba Talaveramarika on 12-27-2024 Unsaturated Iron Binding Capacity 288 ug/dL 228-428 [facility] Nucleated red blood cell per centageOrdered By: Dionne Porter on 12-27-2024 Nucleated RBC/100 WBC (Bld) [Ratio] 0 % 0-5 [facility] Platelet countOrdered By: Lidya lepe Charlotte on 12-27-2024 Platelets (Bld) [#/Vol] 188 10*3/uL 150-450 [facility] Potassium measurement (mass/ volume)Ordered By: Dionne Porter on 12-27-2024 Potassium (Unsp spec) [Mass/Vol] 3.0 mmol/L Low 3.3-5.1 [facility] Comment on above: Hemolysis present, R esults could be affected. Previous reported result: 4.2 mmol/LEdited by: ANTONIO on 12/27/24:0835 AMENDED REPORT 12/27/24 0835 K previously reported as: 4.2 mmol/L Hemolysis present, Results could be affected. RBC Auto (Bld) [#/Vol]Ordere d By: Dionne Porter on 12-27-2024 RBC (Bld) [#/Vol] 3.14 10*6/uL Low 4.2-5.[address] [facility] RESPIRATORY PANEL MOLECULARo n 12-27-2024 RP PANEL Normal [facility] Comment on above: Performed By: #### M 100.638 ####[facility] [address] [place], [address] Respiratory Cultureon 2024 RESPC Specimen is mostly saliva and as such may not represent an accurate assessment of the patients' pulmonary/respiratory condition. CALLED TO Jose F GARCIA RN 12/27/24 1218 Iman Fierro. REPORT READ BACK BY [JAMILA GARCIA RN] Test not performed Normal [facility] Comment on above: Performed By: #### M 100.2000, M100.2400 ####[facility] [address] [place], [place], [address] Serum creatinine measurement (mass/volume)Ordered By: Dionne Porter on 12-27-2024 Creatinine [Mass/Vol] 0.61 mg/dL Low 0.70-1.20 [facility] Serum globulin measurementOr dered By: Dionne Porter on 12-27-2024 Globulin (S) [Mass/Vol] 2.1 g/dL Low 2.2-4.2 [facility] Serum glucose measurement (m ass/volume)Ordered By: Dionne Porter on 12-27-2024 Glucose [Mass/Vol] 151 mg/dL High 70-99 [facility] Serum or plasma alanine retana otransferase (ALT) measurementOrdered By: Dionne Porter on 12-27-2024 ALT [Catalytic activity/Vol] 20 U/L <35 [facility] Serum or plasma albumin kadi urement (mass/volume)Ordered By: Dionne Porter on 12-27-2024 Albumin [Mass/Vol] 3.8 g/dL 3.4-4.8 [facility] Serum or plasma albumin/glob ulin mass ratioOrdered By: Dionne Porter on 12-27-2024 Albumin/Globulin [Mass ratio] 1.8 {ratio} 0.9-2.4 [facility] Serum or plasma alkaline renetta sphatase measurementOrdered By: Dionne Porter on 12-27-2024 ALP [Catalytic activity/Vol] 46 U/L 35-104 [facility] Serum or plasma calcium kadi urement (mass/volume)Ordered By: Dionne Porter on 12-27-2024 Calcium [Mass/Vol] 8.9 mg/dL 7.6-11.0 [facility] Serum or plasma ferritin ranjith surement (mass/volume)Ordered By: Lynne Schafer on 12-27-2024 Ferritin [Mass/Vol] 35 ng/mL 22-[address] [facility] Serum or plasma iron saturat ion measurement (mass fraction)Ordered By: Lynne Schafer on 12-27-2024 Iron saturation [Mass fraction] 6.0 % Low 13-59 [facility] Serum or plasma urea nitroge n measurement (mass/volume)Ordered By: Dionne Porter on 12-27-2024 Urea nitrogen [Mass/Vol] 18 mg/dL 4-19 [facility] Sodium levelOrdered By: Behzad Porter on 12-27-2024 Sodium [Moles/Vol] 140 mmol/L 133-145 [facility] Total proteinOrdered By: Arthur Porter on 12-27-2024 Protein [Mass/Vol] 5.9 g/dL 5.9-8.4 [facility] White blood cell (WBC) count Ordered By: Dionne Porter on 12-27-2024 WBC (Bld) [#/Vol] 5.4 10*3/uL 4.4-11.0 [facility] 12 Lead EKGon 12-26-2024 12 Lead EKG Normal [facility] Absolute lymphocyte countOrd ered By: ED PROVIDER on 12-26-2024 Lymphocytes Auto (Unsp spec) [#/Vol] 1.08 10*3/uL 0.83-4.51 [facility] Absolute neutrophil countOrd ered By: ED PROVIDER on 12-26-2024 Neutrophils (Bld) [#/Vol] 8.0 10*3/uL High 2.0-7.7 [facility] Anion gap in Serum or Plasma Ordered By: Marcel Zarate on 12-26-2024 Anion gap [Moles/Vol] 8 mmol/L 5-15 [facility] Assessment of wrist artery p atency prior to arterial punctureOrdered By: Dionne Porter on 12-26-2024 Arterial patency Wrist artery --pre arterial puncture Positive [facility] Automated lymphocyte count a s percentage of total leukocytesOrdered By: ED PROVIDER on 12-26-2024 Lymphocytes/100 WBC Auto (Unsp spec) 11.3 % Low 19-41 [facility] BUN/creatinine ratioOrdered By: Marcel Zarate on 12-26-2024 Urea nitrogen/Creatinine [Mass ratio] 25.1 mg/mg High 10-20 [facility] Basic Metabolic Profile (BMP )on 12-26-2024 BUN/CRE 25.1 RATIO High 10-20 [facility] Comment on above: Performed By: #### L 100.0100, L500.2500 ####[facility] [address] [place], [place], [id number] Calcium [Mass/Vol] 8.9 mg/dL Normal 7.6-11.0 [facility] Comment on above: Performed By: #### L 100.0100, L500.2500 ####[facility] [address] [place], [address] Chloride [Moles/Vol] 88 mmol/L Low 98-108 [facility] Comment on above: Performed By: #### L 100.0100, L500.2500 ####[facility] [address] [place], [address] CO2 [Moles/Vol] 41.6 mmol/L High 21.0-32.0 [facility] Comment on above: Performed By: #### L 100.0100, L500.2500 ####[facility] [address] [place], [address] Creatinine [Mass/Vol] 0.64 mg/dL Low 0.70-1.20 [facility] Comment on above: Performed By: #### L 100.0100, L500.2500 ####[facility] [address] [place], [address] ECRCL 65.40 ml/min Normal 50-250 [facility] Comment on above: Performed By: #### L 100.0100, L500.2500 ####[facility] [address] [place], [address] GAP 8 Normal 5-15 [facility] Comment on above: Performed By: #### L 100.0100, L500.2500 ####[facility] [address] [place], [address] GFR/1.73 sq M.predicted among non-blacks MDRD (S/P/Bld) [Vol rate/Area] 96 mL/min/{1.73_m2} Normal >60 [facility] Comment on above: Result Comment: mL/m in/1.73m2 CKD-EPI Creatinine Equation (2020) Performed By: #### L 100.0100, L500.2500 ####[facility] [address] [place], [address] Glucose [Mass/Vol] 112 mg/dL High 70-99 [facility] Comment on above: Performed By: #### L 100.0100, L500.2500 ####[facility] [address] [place], [address] Potassium [Moles/Vol] 4.0 mmol/L Normal 3.3-5.1 [facility] Comment on above: Performed By: #### L 100.0100, L500.2500 ####[facility] [address] [place], [address] Sodium [Moles/Vol] 137 mmol/L Normal 133-145 [facility] Comment on above: Performed By: #### L 100.0100, L500.2500 ####[facility] [address] [place], [address] Urea nitrogen [Mass/Vol] 16 mg/dL Normal 4-19 [facility] Comment on above: Performed By: #### L 100.0100, L500.2500 ####[facility] [address] [place], [address] Basophil percentageOrdered B y: ED PROVIDER on 12-26-2024 Basophils/100 WBC (Bld) 0.1 % 0-1 [facility] Blood Gases by CPSon 025 CHAO TEST Positive Normal [facility] Comment on above: Performed By: #### L 9000.0800 ####[facility] [address] [place], [address] BE > 30 High -2 to +2 [facility] Comment on above: Performed By: #### L 9000.0800 ####[facility] [address] [place], [address] Blood Gas Type ART Normal [facility] Comment on above: Performed By: #### L 9000.0800 ####[facility] [address] [place], [address] FI02 2.0 Normal [facility] Comment on above: Performed By: #### L 9000.0800 ####[facility] [address] [place], [address] HCO3 (Bld) [Moles/Vol] 55.5 mmol/L High 22-26 [facility] Comment on above: Performed By: #### L 9000.0800 ####[facility] [address] [place], [address] Mode Not entered Normal [facility] Comment on above: Performed By: #### L 9000.0800 ####[facility] [address] [place], [address] O2 Delivery Dev Cannula Normal [facility] Comment on above: Performed By: #### L 9000.0800 ####[facility] [address] [place], [address] pCO2 81.2 mmHg Invalid Interpretation Code 35-45 [facility] Comment on above: Performed By: #### L 9000.0800 ####[facility] [address] [place], [address] pH (Bld) 7.44 [pH] Normal 7.35-7.45 [facility] Comment on above: Performed By: #### L 9000.0800 ####[facility] [address] [place], [address] PO2 106 mmHG High 75-100 [facility] Comment on above: Performed By: #### L 9000.0800 ####[facility] [address] [place], [address] Read Back By Yes Normal [facility] Comment on above: Performed By: #### L 9000.0800 ####[facility] [address] [place], [address] Results To White Normal [facility] Comment on above: Performed By: #### L 9000.0800 ####[facility] [address] [place], [address] SITE L Radial Normal [facility] Comment on above: Performed By: #### L 9000.0800 ####[facility] [address] [place], [address] SO2 98 Normal 95-99 [facility] Comment on above: Performed By: #### L 9000.0800 ####[facility] [address] [place], [address] Time Given 20:42:58 Normal [facility] Comment on above: Performed By: #### L 9000.0800 ####[facility] [address] [place], [address] TOTAL CO2 > 50 Normal [facility] Comment on above: Performed By: #### L 9000.0800 ####[facility] [address] [place], [address] Blood base excess determinat ionOrdered By: Dionne Porter on 12-26-2024 Base excess Calc (BldV) [Moles/Vol] mmol/L High -2-2 [facility] Blood bicarbonate measuremen tOrdered By: Dionne Porter on 12-26-2024 HCO3 (Bld) [Moles/Vol] 55.5 mmol/L High 22-26 [facility] CBC W/Diff, Automatedon Absolute Lymph 1.08 X10 3/uL Normal 0.83-4.51 [facility] Comment on above: Performed By: #### L 100.0100, L500.2500 ####[facility] [address] [place], [address] Absolute Neut 8.0 X10 3/uL High 2.0-7.7 [facility] Comment on above: Performed By: #### L 100.0100, L500.2500 ####[facility] [address] [place], [address] Basophils/100 WBC (Bld) 0.1 % Normal 0-1 [facility] Comment on above: Performed By: #### L 100.0100, L500.2500 ####[facility] [address] [place], [address] Eosinophils/100 WBC (Bld) 0.1 % Normal 0-5 [facility] Comment on above: Performed By: #### L 100.0100, L500.2500 ####[facility] [address] [place], [address] Erythrocyte distribution width (RBC) [Ratio] 14.0 % Normal 11.6-14.6 [facility] Comment on above: Performed By: #### L 100.0100, L500.2500 ####[facility] [address] [place], [address] Hematocrit (Bld) [Volume fraction] 29.0 % Low 37-47 [facility] Comment on above: Performed By: #### L 100.0100, L500.2500 ####[facility] [address] [place], [address] Hemoglobin (Bld) [Mass/Vol] 9.2 g/dL Low 12.0-15.0 [facility] Comment on above: Performed By: #### L 100.0100, L500.2500 ####[facility] [address] [place], [address] IG% 0.800 Normal 0.0-0.9 [facility] Comment on above: Result Comment: IG% - Immature Granulocytes (promyelocytes, myelocytes andmetamyelocytes) > 1% indicates that a LEFT SHIFT is Present. Performed By: #### L 100.0100, L500.2500 ####[facility] [address] [place], [address] Lymphocytes/100 WBC (Bld) 11.3 % Low 19-41 [facility] Comment on above: Performed By: #### L 100.0100, L500.2500 ####[facility] [address] [place], [address] MCH (RBC) [Entitic mass] 26.8 pg Low 27.0-32.0 [facility] Comment on above: Performed By: #### L 100.0100, L500.2500 ####[facility] [address] [place], [address] MCHC (RBC) [Mass/Vol] 31.7 g/dL Low 32-36 [facility] Comment on above: Performed By: #### L 100.0100, L500.2500 ####[facility] [address] [place], [address] MCV (RBC) [Entitic vol] 84.5 fL Normal 81-99 [facility] Comment on above: Performed By: #### L 100.0100, L500.2500 ####[facility] [address] [place], [address] Monocytes/100 WBC (Bld) 4.5 % Normal 0-10 [facility] Comment on above: Performed By: #### L 100.0100, L500.2500 ####[facility] [address] [place], [address] Neutrophils/100 WBC (Bld) 83.2 % High 47-70 [facility] Comment on above: Performed By: #### L 100.0100, L500.2500 ####[facility] [address] [place], [address] Nucleated RBC (Bld) [#/Vol] 0 10*3/uL Normal 0-5 [facility] Comment on above: Performed By: #### L 100.0100, L500.2500 ####[facility] [address] [place], [address] Platelet mean volume (Bld) [Entitic vol] 9.3 fL Normal 6.2-12.0 [facility] Comment on above: Performed By: #### L 100.0100, L500.2500 ####[facility] [address] [place], [address] Platelets (Bld) [#/Vol] 219 10*3/uL Normal 150-450 [facility] Comment on above: Performed By: #### L 100.0100, L500.2500 ####[facility] [address] [place], [address] RBC (Bld) [#/Vol] 3.43 10*6/uL Low 4.2-5.[address] [facility] Comment on above: Performed By: #### L 100.0100, L500.2500 ####[facility] [address] [place], [address] RDW SD 43.0 fl Normal 35.1-43.9 [facility] Comment on above: Performed By: #### L 100.0100, L500.2500 ####[facility] [address] [place], [address] WBC (Bld) [#/Vol] 9.6 10*3/uL Normal 4.4-11.0 [facility] Comment on above: Performed By: #### L 100.0100, L500.2500 ####[facility] [address] [place], [address] [place] 12-26-2024 [facility] Telephone (INTMWS) DENIA GONZALEZ ([id number]) 1955 F Date Time Provider Department 12/26/24 YOSEPH FALL During your visit today, we recorded the following information about you: Juan PabloBan sternLAURIE 12/26/2024 9:57 AM Signed Electronic PA rec'd and completed. Prior authorization approved Payer: [employer] [phone] Note from payer: CaseId:[id number];Stat us:Approved;Review Type:Prior Auth;Coverage Start Date:11/22/2024;Cover age End Date:12/22/2025; Approval Details Authorized from November [...] to its destination. To be filled at: [facility] [address] [place] [address] [address] [facility] - [phone] Allergies As of Date: 12/26/2024 (No Known Allergies) Date Reviewed: 11/22/2024 Reviewed by: Gregor Fernandez APRN.[employer] CLAIM EXAMINER - Fully Assessed Reason for Visit: Insurance Authorization [[id number]] Prescriptions as of 12/26/2024 - hydrOXYzine HCl (ATARAX) 25 mg tablet Take 1 tablet by mouth three times a day as needed (for itching). - HYDROcodone-acetamino phen (NORCO) 5-325 mg per tablet Take 1 [...] 500 mg by mouth once daily. - ipratropium-albuterol (DUONEB) 0.5 mg-3 mg(2.5 mg [...] instructed every 4 hours as needed. - fluticasone-salmetero l (ADVAIR DISKUS) 500-50 mcg/dose dsdv Inhale 1 [...] directed. Dx: COPD J44.9 - Nebulizer Accessories [facility] Mask and supplies as needed - PULSE OXIMETER [facility] Use as directed to check oxygen saturation level - ammonium lactate (AMLACTIN) 12 % lotion Apply 1 application to affected area as needed for Dry Skin. - losartan (COZAAR) 50 mg tablet Take 0.5 tablets by mouth once daily. - OXYGEN, HOME THERAPY, 2.5 L/min by Nasal Cannula route continuous. Use as directred - Disposable Gloves (DISPOSABLE LATEX-FREE GLOVES) [facility] 1 Box once every [...] be starting Problem List As Of Date 12/26/2024 Noted Resolved Other and unspecified alcohol dependence, unspe* 08/11/ (more content not included)... Normal [facility] Carbon dioxide, total [Moles /volume] in Central venous bloodOrdered By: Marcel Zarate on 12-26-2024 CO2 [Moles/Vol] 41.6 mmol/L High 21.0-32.0 [facility] Chest 1 View (Portable)on Chest 1 View (Portable) Normal [facility] Chloride assayOrdered By: Seun Zarate on 12-26-2024 Chloride [Moles/Vol] 88 mmol/L Low 98-108 [facility] Emergency Department Summary on 12-26-2024 Emergency Department Summary Normal [facility] Eosinophil percentageOrdered By: ED PROVIDER on 12-26-2024 Eosinophils/100 WBC (Bld) 0.1 % 0-5 [facility] Erythrocyte distribution wid th ratioOrdered By: ED PROVIDER on 12-26-2024 Erythrocyte distribution width (RBC) [Ratio] 14.0 % 11.6-14.6 [facility] Erythrocyte distribution wid th standard deviationOrdered By: ED PROVIDER on 12-26-2024 Erythrocyte distribution width (RBC) [Ratio] 43.0 fl 35.1-43.9 [facility] Ferritinon 12-26-2024 Ferritin [Mass/Vol] 22 ng/mL Normal 22-[address] [facility] Comment on above: Order Comment: Comme nts: may add to ED labs Performed By: #### L 503.6587, L501.5200, L503.6030 ####[facility] [address] [place], [place], [id number] Glomerular filtration rate ( GFR) estimation/1.73 sq m using serum, plasma, or whole bOrdered By: Marcel Zarate on 12-26-2024 GFR/1.73 sq M.predicted among non-blacks MDRD (S/P/Bld) [Vol rate/Area] 96 mL/min/{1.73_m2} >60 [facility] Comment on above: mL/min/1.73m2 CKD-EP I Creatinine Equation (2020) Gram stainOrdered By: Dionne Porter on 12-26-2024 Microscopic observation Gram stain Nom (Unsp spec) [facility] H AND P Exam - Hospitaliston 12-26-2024 H&P Exam - Hospitalist Normal [facility] HH, Hemoglobin AND Hematocri ton 12-26-2024 Hematocrit (Bld) [Volume fraction] 26.5 % Low 37-47 [facility] Comment on above: Performed By: #### L 100.0600 ####[facility] [address] [place], [place], [id number] Hemoglobin (Bld) [Mass/Vol] 8.5 g/dL Low 12.0-15.0 [facility] Comment on above: Performed By: #### L 100.0600 ####[facility] [address] [place], [address] Hematocrit Auto (Bld) [Volum e fraction]Ordered By: ED PROVIDER on 12-26-2024 Hematocrit (Bld) [Volume fraction] 29.0 % Low 37-47 [facility] Hemoglobin measurementOrdere d By: ED PROVIDER on 12-26-2024 Hemoglobin (Bld) [Mass/Vol] 9.2 g/dL Low 12.0-15.0 [facility] Immature granulocytes/100 WB C Auto (Bld)Ordered By: ED PROVIDER on 12-26-2024 Immature granulocytes/100 WBC (Bld) 0.800 % 0.0-0.9 [facility] Comment on above: IG% - Immature Granu locytes (promyelocytes, myelocytes and metamyelocytes) > 1% indicates that a LEFT SHIFT is Present. Iron+Iron Binding Capacityon 12-26-2024 Iron [Mass/Vol] 25 ug/dL Low 50-170 [facility] Comment on above: Order Comment: Comme nts: may add to ED labs Performed By: #### L 503.6550, L501.5200, L503.6030 ####[facility] [address] [place], [address] IRON SATURATION 8.0 Low 13-59 [facility] Comment on above: Order Comment: Comme nts: may add to ED labs Performed By: #### L 503.6550, L501.5200, L503.6030 ####[facility] [address] [place], [address] TIBC 313 ug/dL Normal 250-450 [facility] Comment on above: Order Comment: Comme nts: may add to ED labs Performed By: #### L 503.6550, L501.5200, L503.6030 ####[facility] [address] [place], [address] UIBC 288 ug/dL Normal 228-428 [facility] Comment on above: Order Comment: Comme nts: may add to ED labs Performed By: #### L 503.6550, L501.5200, L503.6030 ####[facility] [address] [place], [address] L501.4021on 12-26-2024 Trop T High Sen 25 ng/L High <=14 [facility] Comment on above: Performed By: #### L 501.4021 ####[facility] [address] [place], [address] L509.7001on 12-26-2024 Procalcitonin 0.04 ng/mL Normal <=0.10 [facility] Comment on above: Result Comment: Inte rpretation:<0.10-0.25 ng/mL: Antibiotic therapy discouraged. Bacterialinfection unlikely.0.25-0.50 ng/mL: Antibiotic therapy encouraged. Bacterialinfection possible.>0.50 ng/mL: Antibiotic therapy strongly encouraged.Suggestive of presence of bacterial infection.PCT should always be interpreted in the clinical context ofthe patient. Therefore, clinicians should use the PCTresults in conjunction with other laboratory findings andclinical signs of the patient. Performed By: #### L 509.7001 ####[facility] [address] [place], [address] MCV (mean corpuscular volume ) determinationOrdered By: ED PROVIDER on 12-26-2024 MCV (RBC) [Entitic vol] 84.5 fL 81-99 [facility] Magnesiumon 12-26-2024 Magnesium [Mass/Vol] 1.9 mg/dL Normal 1.5-2.2 [facility] Comment on above: Order Comment: Comme nts: may add to ED labs Performed By: #### L 503.6550, L501.5200, L503.6030 ####[facility] [address] [place], [address] Magnesium measurement (mass/ volume)Ordered By: Dionne Porter on 12-26-2024 Magnesium (Unsp spec) [Mass/Vol] 1.9 mg/dL 1.5-2.2 [facility] Mean corpuscular hemoglobin (MCH) determinationOrdered By: ED PROVIDER on 12-26-2024 MCH (RBC) [Entitic mass] 26.8 pg Low 27.0-32.0 [facility] Mean corpuscular hemoglobin concentration (MCHC) determinationOrdered By: ED PROVIDER on 12-26-2024 MCHC (RBC) [Mass/Vol] 31.7 g/dL Low 32-36 [facility] Mean platelet volume determi nationOrdered By: ED PROVIDER on 12-26-2024 Platelet mean volume (Bld) [Entitic vol] 9.3 fL 6.2-12.0 [facility] Measurement, pHOrdered By: Sheba Porter on 12-26-2024 pH (Unsp spec) 7.44 [pH] 7.35-7.45 [facility] Microbial respiratory cultur eOrdered By: Dionne Porter on 12-26-2024 Microorganism identified Cx Nom (Unsp spec) [facility] Monocyte percentageOrdered B y: ED PROVIDER on 12-26-2024 Monocytes/100 WBC (Bld) 4.5 % 0-10 [facility] Neutrophil percentageOrdered By: ED PROVIDER on 12-26-2024 Neutrophils/100 WBC (Bld) 83.2 % High 47-70 [facility] No Panel InformationOrdered By: Dionne Porter on 12-26-2024 Bld Gas Crit Called To/Read Back By Yes [facility] Blood Gas Notified Time 20:42:58 [facility] Blood Gas Notified Whom [place] [facility] Blood Gas Sample Site L Radial [facility] Blood Gas Specimen Type ART [facility] Blood Gas Vent Mode Not entered [facility] Oxygen Delivery Device Cannula [facility] Nucleated red blood cell per centageOrdered By: ED PROVIDER on 12-26-2024 Nucleated RBC/100 WBC (Bld) [Ratio] 0 % 0-5 [facility] Platelet countOrdered By: ED PROVIDER on 12-26-2024 Platelets (Bld) [#/Vol] 219 10*3/uL 150-450 [facility] Potassium measurement (mass/ volume)Ordered By: Marcel Zarate on 12-26-2024 Potassium (Unsp spec) [Mass/Vol] 4.0 mmol/L 3.3-5.1 [facility] Procalcitonin [Mass/volume] in Serum or Plasma by ImmunoassayOrdered By: Dionne Porter on 12-26-2024 Procalcitonin IA [Mass/Vol] 0.04 ng/mL <0.11 [facility] Comment on above: Interpretation:<0.10 -0.25 ng/mL: [...] patient. RBC Auto (Bld) [#/Vol]Ordere d By: ED PROVIDER on 12-26-2024 RBC (Bld) [#/Vol] 3.43 10*6/uL Low 4.2-5.[address] [facility] Respiratory pathogens detect ion panel by molecular detection methodOrdered By: Dionne Porter on 12-26-2024 Respiratory pathogens DNA and RNA panel ASPEN+probe (Resp) [facility] Serum creatinine measurement (mass/volume)Ordered By: Marcel Zarate on 12-26-2024 Creatinine [Mass/Vol] 0.64 mg/dL Low 0.70-1.20 [facility] Serum glucose measurement (m ass/volume)Ordered By: Marcel Zarate on 12-26-2024 Glucose [Mass/Vol] 112 mg/dL High 70-99 [facility] Serum or plasma calcium kadi urement (mass/volume)Ordered By: Marcel Zarate on 12-26-2024 Calcium [Mass/Vol] 8.9 mg/dL 7.6-11.0 [facility] Serum or plasma urea nitroge n measurement (mass/volume)Ordered By: Marcel Zarate on 12-26-2024 Urea nitrogen [Mass/Vol] 16 mg/dL 4-19 [facility] Sodium levelOrdered By: Haider Zarate on 12-26-2024 Sodium [Moles/Vol] 137 mmol/L 133-145 [facility] Troponin T HS 2 HRon 025 Trop T High Sen 25 ng/L High <=14 [facility] Comment on above: Performed By: #### L 499.0042 ####[facility] [address] [place], [place], [address] Troponin T HS 4 HRon 025 Trop T High Sen 26 ng/L High <=14 [facility] Comment on above: Performed By: #### L 499.0043 ####[facility] [address] [place], [place], [address] Troponin T.cardiac [Mass/vol ume] in Serum or Plasma by High sensitivity methodOrdered By: Marcel Zarate on 12-26-2024 Troponin T.cardiac High sensitivity method [Mass/Vol] 26 ng/L High <14 [facility] Troponin T.cardiac High sensitivity method [Mass/Vol] 25 ng/L High <14 [facility] Troponin T.cardiac High sensitivity method [Mass/Vol] 25 ng/L High <14 [facility] Comment on above: Delta: 23 on 531 White blood cell (WBC) count Ordered By: ED PROVIDER on 12-26-2024 WBC (Bld) [#/Vol] 9.6 10*3/uL 4.4-11.0 [facility] 12-22-2024 CNPN Telephone (VALERIA) DENIA GONZALEZ ([id number]) 1955 F Date Time Provider Department [facility] During your visit today, we recorded the following information about you: Judy Bliss, RN 12/22/2024 8:58 AM Signed Patient's Daughter [...] 12/22/2024 9:40 AM Signed Daughter in Law Sinan called and notified that prescription was sent to pharmacy. Voices understanding. Judy Bliss RN Allergies As of Date: 12/22/2024 (No Known Allergies) Date Reviewed: 11/22/2024 Reviewed by: Gregor Fernandez APRN.[employer] CLAIM EXAMINER - Fully Assessed Reason for Visit: Patient Update [1234] Primary Visit Diagnosis:Itching [L29.9] Order(s):hydrOXYzine HCl (ATARAX) 25 mg tabletTake 1 tablet by mouth three times a day as needed (for itching).Disp: 30 tabletRfl: 2 Prescriptions as of 12/22/2024 - hydrOXYzine HCl (ATARAX) 25 mg tablet Take 1 tablet by mouth three times a day as needed (for itching). - HYDROcodone-acetamino phen (NORCO) 5-325 mg per tablet Take 1 [...] 500 mg by mouth once daily. - ipratropium-albuterol (DUONEB) 0.5 mg-3 mg(2.5 mg [...] instructed every 4 hours as needed. - fluticasone-salmetero l (ADVAIR DISKUS) 500-50 mcg/dose dsdv Inhale 1 [...] directed. Dx: COPD J44.9 - Nebulizer Accessories [facility] [place] [place] Mask and supplies as needed - PULSE OXIMETER [facility] Use as directed to check oxygen saturation level - ammonium lactate (AMLACTIN) 12 % lotion Apply 1 application to affected area as needed for Dry Skin. - losartan (COZAAR) 50 mg tablet Take 0.5 tablets by mouth once daily. - OXYGEN, HOME THERAPY, 2.5 L/min by Nasal Cannula route continuous. Use as directred - Disposable Gloves (DISPOSABLE LATEX-FREE GLOVES) [facility] [place] 1 Box once every [...] NOS [C34. (more content not included)... Normal [facility] CBC W Auto Differential pane l (Bld)on 12-15-2024 Basophils (Bld) [#/Vol] 0 10*3/uL 0.0 - 0.2 10*3/uL [employer] Basophils/100 WBC (Bld) 0.1 % 0.0 - 2.0 % [employer] Eosinophils (Bld) [#/Vol] 0 10*3/uL 0.0 - 0.5 10*3/uL [employer] Eosinophils/100 WBC (Bld) 0.1 % 0.0 - 6.0 % [employer] Erythrocyte distribution width (RBC) [Ratio] 13.6 % 11.5 - 15.0 % [employer] Hematocrit (Bld) [Volume fraction] 33.3 % Low 35.0 - 47.0 % [employer] Hemoglobin (Bld) [Mass/Vol] 10.5 g/dL Low 11.7 - 16.0 g/dL [employer] Immature granulocytes (Bld) [#/Vol] 0.1 10*3/uL High NINF - 0.1 10*3/uL [employer] Immature granulocytes/100 WBC (Bld) 0.8 % 0.0 - 2.0 % [employer] Interpretation and review of laboratory results Abnormal [employer] Lymphocytes (Bld) [#/Vol] 0.8 10*3/uL Low 1.0 - 4.3 10*3/uL [employer] Lymphocytes/100 WBC (Bld) 9.8 % Low 15.0 - 45.0 % [facility] MCH (RBC) [Entitic mass] 26.3 pg 26. 0 - 34.0 pg [facility] MCHC (RBC) [Mass/Vol] 31.5 % 30.5 - 36.0 % [facility] MCV (RBC) [Entitic vol] 83.5 fL 77.0 - 99.0 fL [facility] Monocytes (Bld) [#/Vol] 0.2 10*3/uL 0.0 - 0.9 10*3/uL [facility] Monocytes/100 WBC (Bld) 1.9 % Low 5.0 - 13.0 % [facility] Neutrophils (Bld) [#/Vol] 7.3 10*3/uL 1.8 - 7.5 10*3/uL [facility] Neutrophils/100 WBC (Bld) 87.3 % High 38.0 - 82.0 % [facility] Nucleated RBC/100 WBC (Bld) [Ratio] 0 % [facility] Platelet mean volume (Bld) [Entitic vol] 10.2 fL 9.0 - 12.7 fL [facility] Platelets (Bld) [#/Vol] 239 10*3/uL 140 - 440 10*3/uL [facility] RBC (Bld) [#/Vol] 3.99 10*6/uL 3.80 - 5.2 0 10*6/uL [facility] WBC (Bld) [#/Vol] 8.3 10*3/uL 3.6 - 10.7 10*3/uL [facility] CBC WITH AUTO DIFFERENTIALon 12-15-2024 Basophils (Bld) [#/Vol] 0.0 10*3/uL Normal 0.0-0.2 [facility] Comment on above: Performed By: #### L [id number] ####Relay Repairer: EDDA MCKINLEY ([id number])[address] Basophils/100 WBC (Bld) 0.1 % Normal 0.0-2.0 [facility] Comment on above: Performed By: #### L [id number] ####Relay Repairer: EDDA MCKINLEY ([id number])[facility])[address] [place] [address] Eosinophils (Bld) [#/Vol] 0.0 10*3/uL Normal 0.0-0.5 [facility] Comment on above: Performed By: #### L [id number] ####Relay Repairer: EDDA MCKINELY ([id number])[facility])[address] [place] [address] Eosinophils/100 WBC (Bld) 0.1 % Normal 0.0-6.0 [facility] Comment on above: Performed By: #### L [id number] ####Relay Repairer: EDDA MCKINLEY ([id number])[address] Erythrocyte distribution width (RBC) [Ratio] 13.6 % Normal 11.5-15.0 [facility] Comment on above: Performed By: #### L [id number] ####Relay Repairer: EDDA MCKINLEY ([id number])[facility])[address] [place] [address] Hematocrit (Bld) [Volume fraction] 33.3 % Low 35.0-47.0 [facility] Comment on above: Performed By: #### L [id number] ####Relay Repairer: EDDA MCKINLEY ([id number])[address] Hemoglobin (Bld) [Mass/Vol] 10.5 g/dL Low 11.7-16.0 [facility] Comment on above: Performed By: #### L [id number] ####Relay Repairer: EDDA MCKINLEY ([id number])[facility])[address] [place] [address] IMMATURE GRANS % 0.8 % Normal 0.0-2.0 [facility] Comment on above: Performed By: #### L [id number] ####Relay Repairer: EDDA MCKINLEY ([id number])[address] IMMATURE GRANS ABSOLUTE 0.1 10*3/uL High <0.1 [facility] Comment on above: Performed By: #### L [id number] ####Relay Repairer: EDDA MCKINLEY ([id number])[facility])[address] [place] [address] Lymphocytes (Bld) [#/Vol] 0.8 10*3/uL Low 1.0-4.3 [facility] Comment on above: Performed By: #### L [id number] ####Relay Repairer: EDDA MCKINLEY ([id number])[facility])[address] [place] [address] Lymphocytes/100 WBC (Bld) 9.8 % Low 15.0-45.0 [facility] Comment on above: Performed By: #### L [id number] ####Relay Repairer: EDDA MCKINLEY ([id number])[facility])[address] [place] [address] MCH (RBC) [Entitic mass] 26.3 pg Normal 26.0-34.0 [facility] Comment on above: Performed By: #### L [id number] ####Relay Repairer: EDDA MCKINLEY ([id number])[facility])[address] [place] [address] MCHC 31.5 % Normal 30.5-36.0 [facility] Comment on above: Performed By: #### L [id number] ####Relay Repairer: EDDA MCKINLEY ([id number])[facility])[address] [place] [address] MCV (RBC) [Entitic vol] 83.5 fL Normal 77.0-99.0 [facility] Comment on above: Performed By: #### L [id number] ####Relay Repairer: EDDA MCKINLEY ([id number])[facility])[address] [place] [address] Monocytes (Bld) [#/Vol] 0.2 10*3/uL Normal 0.0-0.9 [facility] Comment on above: Performed By: #### L [id number] ####Relay Repairer: EDDA MCKINLEY ([id number])[facility] ([facility])[address] [place] [address] Monocytes/100 WBC (Bld) 1.9 % Low 5.0-13.0 [facility] Comment on above: Performed By: #### L [id number] ####Relay Repairer: EDDA MCKINLEY ([id number])[facility] ([facility])[address] [place] [address] NEUTROPHILS ABSOLUTE 7.3 10*3/uL Normal 1.8-7.5 [facility] Comment on above: Performed By: #### L [id number] ####Relay Repairer: EDDA MCKINLEY ([id number])[facility])[address] [place] [address] Neutrophils/100 WBC (Bld) 87.3 % High 38.0-82.0 [facility] Comment on above: Performed By: #### L [id number] ####Relay Repairer: EDDA MCKINLEY ([id number])[facility] ([facility])[address] [place] [address] NRBC 0.0 /100 WBCs Normal 0.0-2.0 [facility] Comment on above: Performed By: #### L [id number] ####Relay Repairer: EDDA MCKINLEY ([id number])[facility])[address] [place] [address] Platelet mean volume (Bld) [Entitic vol] 10.2 fL Normal 9.0-12.7 [facility] Comment on above: Performed By: #### L [id number] ####Relay Repairer: EDDA MCKINLEY ([id number])[facility])[address] [place] [address] Platelets (Bld) [#/Vol] 239 10*3/uL Normal 140-440 [facility] Comment on above: Performed By: #### L [id number] ####Relay Repairer: EDDA MCKINLEY ([id number])[facility] ([facility])[address] [place] [address] RBC (Bld) [#/Vol] 3.99 10*6/uL Normal 3.80-5.20 [facility] Comment on above: Performed By: #### L [id number] ####Relay Repairer: EDDA MCKINLEY ([id number])[facility] ([facility])[address] [place] [address] WBC (Bld) [#/Vol] 8.3 10*3/uL Normal 3.6-10.7 [facility] Comment on above: Performed By: #### L [id number] ####Relay Repairer: EDDA MCKINLEY ([id number])[facility] ([facility])[address] [place] [address] COMPREHENSIVE METABOLIC PANE Eddie 12-15-2024 Albumin [Mass/Vol] 3.7 g/dL Normal 3.4-4.8 [facility] Comment on above: Performed By: #### L [id number] ####Relay Repairer: EDDA MCKINLEY ([id number])[facility] ([facility])[address] [place] [address] ALP [Catalytic activity/Vol] 49 U/L Normal 40-150 [facility] Comment on above: Performed By: #### L [id number] ####Relay Repairer: EDDA MCKINLEY ([id number])[facility])[address] [place] [address] ALT [Catalytic activity/Vol] 16 U/L Normal <30 [facility] Comment on above: Performed By: #### L [id number] ####Relay Repairer: EDDA MCKINLEY ([id number])[facility] ([facility])[address] [place] [address] Anion gap [Moles/Vol] 7 mmol/L Normal 3-13 [facility] Comment on above: Performed By: #### L [id number] ####Relay Repairer: EDDA MCKINLEY ([id number])[facility] ([facility])[address] [place] [address] AST [Catalytic activity/Vol] 18 U/L Normal <34 [facility] Comment on above: Performed By: #### L [id number] ####Relay Repairer: EDDA MCKINLEY ([id number])[facility])[address] [place] [address] Bilirubin [Mass/Vol] 0.4 mg/dL Normal <1.2 [facility] Comment on above: Performed By: #### L [id number] ####Relay Repairer: EDDA MCKINLEY ([id number])[facility])[address] [place] [address] Calcium [Mass/Vol] 8.6 mg/dL Low 8.8-10.0 [facility] Comment on above: Performed By: #### L [id number] ####Relay Repairer: EDDA MCKINLEY ([id number])[facility])[address] [place] [address] Chloride [Moles/Vol] 88 mmol/L Low 98-107 [facility] Comment on above: Performed By: #### L [id number] ####Relay Repairer: EDDA MCKINLEY ([id number])[facility])[address] [place] [address] CO2 [Moles/Vol] 40 mmol/L High 23-31 [facility] Comment on above: Performed By: #### L [id number] ####Relay Repairer: EDDA MCKINLEY ([id number])[facility])[address] [place] [address] Creatinine [Mass/Vol] 0.72 mg/dL Normal 0.57-1.11 [facility] Comment on above: Performed By: #### L [id number] ####Relay Repairer: EDDA MCKINLEY ([id number])[facility])[address] [place] [address] GLOMERULAR FILTRATION RATE ML/MIN/1.73 SQ M.PREDICTED >90.0 Normal >60.0 [facility] Comment on above: Result Comment: Calc ulation based on the Chronic Kidney Disease Epidemiology Collaboration (CKD-EPI) equation refit without adjustment for race Performed By: #### L [id number] ####Relay Repairer: EDDA MCKINLEY ([id number])[facility] ([facility])[address] [place] [address] Glucose [Mass/Vol] 114 mg/dL Normal 82-115 [facility] Comment on above: Performed By: #### L [id number] ####Relay Repairer: EDDA MCKINLEY ([id number])[facility] ([facility])[address] [place] [address] Potassium [Moles/Vol] 4.3 mmol/L Normal 3.5-5.1 [facility] Comment on above: Result Comment: [facility] potassium values may be up to 0.5 mmol/L lower than serum values. Performed By: #### L [id number] ####Relay Repairer: EDDA MCKINLEY ([id number])[facility] ([facility])[address] [place] [address] Protein [Mass/Vol] 6.5 g/dL Normal 6.4-8.3 [facility] Comment on above: Performed By: #### L [id number] ####Relay Repairer: EDDA MCKINLEY ([id number])[facility] ([facility])[address] [place] [address] Sodium [Moles/Vol] 135 mmol/L Low 136-145 [facility] Comment on above: Performed By: #### L [id number] ####Relay Repairer: EDDA MCKINLEY ([id number])[facility])[address] [place] [address] Urea nitrogen [Mass/Vol] 19 mg/dL Normal 9-23 [facility] Comment on above: Performed By: #### L [id number] ####Relay Repairer: EDDA MCKINLEY ([id number])[facility] ([facility])[address] [place] [address] Comprehensive metabolic 1998 panelon 12-15-2024 Albumin [Mass/Vol] 3.7 g/dL 3.4 - 4.8 g/dL [facility] ALP [Catalytic activity/Vol] 49 U/L 40 - 150 U/L [facility] ALT [Catalytic activity/Vol] 16 U/L [facility] - 30 U/L [facility] Anion gap [Moles/Vol] 7 mmol/L 3 - 13 mmol/L [facility] AST [Catalytic activity/Vol] 18 U/L [facility] - 34 U/L [facility] Bilirubin [Mass/Vol] 0.4 mg/dL [facility] - 1.2 mg/dL [facility] Calcium [Mass/Vol] 8.6 mg/dL Low 8.8 - 10. 0 mg/dL [facility] Chloride [Moles/Vol] 88 mmol/L Low 98 - 10 7 mmol/L [facility] - [place] CO2 [Moles/Vol] 40 mmol/L High 23 - 31 mmol/L [facility] Creatinine [Mass/Vol] 0.72 mg/dL 0.57 - 1.11 mg/dL [facility] GFR/1.73 sq M.predicted (S/P/Bld) [Vol rate/Area] - PINF [facility] Comment on above: Calculation based on the Chronic Kidney Disease Epidemiology Collaboration (CKD-EPI) equation refit without adjustment for race Glucose [Mass/Vol] 114 mg/dL 82 - 115 mg/dL [facility] Interpretation and review of laboratory results Abnormal [facility] Potassium [Moles/Vol] 4.3 mmol/L 3.5 - 5.1 mmol/L [facility] Comment on above: Plasma potassium abdulkadir ues may be up to 0.5 mmol/L lower than serum values. Protein [Mass/Vol] 6.5 g/dL 6.4 - 8.3 g/dL [facility] Sodium [Moles/Vol] 135 mmol/L Low 136 - 145 mmol/L [facility] Urea nitrogen [Mass/Vol] 19 mg/dL 9 - 23 mg/d L [facility] Office Visiton 12-15-2024 Follow-up visit [id number] Kai Gonzalez 1955 F Date Provider Department Center 12/15/2024 [id number] [facility] [address] Family History Problem Relation Age of Onset Hypertension Mother Throat cancer Mother Hypertension Father Stomach cancer Father Family Status - Relation Status Age at Mother Father Level of Service:07336 MT OFFICE/OP CONSLTJ NEW/EST PT HIGH MDM 55 MINUTES Reason for Visit and Comments: Cardiac Valve Problem [1334] New Patient [542] - Heart Valve Clinic Normal [facility] Follow-up visit [id number] Kai Gonzalez 1955 F Date Provider Department Center 12/15/2024 [id number] SHEA [facility] 95 Ar Family History Problem Relation Age of Onset Hypertension Mother Throat cancer Mother Hypertension Father Stomach cancer Father Family Status - Relation Status Age at Mother Father Level of Service:29406 MT OFFICE/OUTPATIENT NEW HIGH MDM 60 MINUTES Reason for Visit and Comments: Cardiac Valve Problem [1334] New Patient [542] - Heart Valve Clinic [facility] Progress Noteon 12-15-2024 Progress Note [facility] Medical Group: Cardiothoracic Surgery Multidisciplinary Heart Valve Clinic Date: 12/14/24 Patient:Denia Gonzalez 1955 69 y.o. female [id number] Subjective: HPI: Denia Gonzalez 69 y.o. referred [...] and headaches. Hematological: Does not bruise/bleed easily. Psychiatric/Behaviora l: Negative for dysphoric mood. Allergies: Patient has no known allergies. Past Medical History: has a past medical history of A-fib ([facility]) ([facility]), Anxiety, Aortic stenosis, Asthma, Chronic respiratory failure ([facility]), COPD (chronic obstructive pulmonary disease) ([facility]), Depressed, History of ETOH abuse, HTN (hypertension), [...] for mu (more content not included)... Normal [facility] Progress Note [facility] CARDIOLOGY - [address] [address] Dept: [phone] Dept Visit type: New : 1955 Reason for Visit: New patient, Heart Valve Clinic Assessment and Plan 1. Preop cardiovascular exam - CBC auto differential - Comprehensive metabolic panel - Case Request Cnc Mill And Lathe Operator: Left and right heart cath / [...] and headaches. Hematological: Does not bruise/bleed easily. Psychiatric/Behaviora l: Negative for dysphoric mood. Allergies[1] Current Medications[2] [...] (degenerative, rheumatic, (more content not included)... Normal [facility] Progress Noteon 12-14-2024 Progress Note Denia Gonzalez [...] HTN (hypertension) Migraines RLS (restless legs syndrome) Normal [facility] 12-08-2024 CNPN Telephone (INTMWS) DENIA GONZALEZ ([id number]) 1955 F Date Time Provider Department 12/08/24 YOSEPH FALL INTMWS During your visit today, we recorded the following information about you: Ban Villafana LPN 12/08/2024 10:31 AM Signed Electronic PA rec'd and completed for cyclobenzaprine (FLEXERIL) 10 mg tablet Ban Villafana LPN 12/08/2024 10:43 AM Signed prior authorization approved Payer: [employer] HOME DELIVERY [phone] Note from payer: CaseId:[id number];Stat us:Approved;Review Type:Prior Auth;Coverage Start Date:11/08/2024;Cover age End Date:12/08/2025; Approval Details Authorized from November [...] to its destination. To be filled at: [facility] [id number] - [place] [address] [address] [facility] [phone] Pharmacy notified. Allergies As of Date: 12/08/2024 (No Known Allergies) Date Reviewed: 11/22/2024 Reviewed by: Gregor Fernandez APRN.[employer] CLAIM EXAMINER - Fully Assessed Reason for Visit: Insurance Authorization [2093] Prescriptions as of 12/08/2024 - cyclobenzaprine (FLEXERIL) 10 mg tablet Take 1 tablet by mouth two times a day as needed for muscle spasm. - HYDROcodone-acetamino phen (NORCO) 5-325 mg per tablet Take 1 [...] by mouth two times a day. - ipratropium-albuterol (DUONEB) 0.5 mg-3 mg(2.5 mg [...] instructed every 4 hours as needed. - fluticasone-salmetero l (ADVAIR DISKUS) 500-50 mcg/dose dsdv Inhale 1 [...] directed. Dx: COPD J44.9 - Nebulizer Accessories [facility] Mask and supplies as needed - PULSE OXIMETER [facility] Use as directed to check oxygen saturation level - ammonium lactate (AMLACTIN) 12 % lotion Apply 1 application to affected area as needed for Dry Skin. - losartan (COZAAR) 50 mg tablet Take 0.5 tablets by mouth once daily. - OXYGEN, HOME THERAPY, 2.5 L/min by Nasal Cannula route continuous. Use as directred - Disposable Gloves (DISPOSABLE LATEX-FREE GLOVES) [facility] 1 Box once every [...] Resolved Other (more content not included)... Normal [facility] 36on 11-28-2024 36 Chart made and MAILER APPRENTICE packet mailed Normal [facility] CNPNon 11-27-2024 CNPN Telephone (FAMPWS) DENIA GONZALEZ ([id number]) 1955 F Date Time Provider Department 11/27[facility] During your visit today, we recorded the following information about you: Padmini Abbott RN 11/27/2024 2:16 PM Signed Rafa with [facility] Nursing calling and states he plans to add 1 more visit to pt's plan of care, to discharge patient. No call back needed if provider agreeable with this. KAREN Robledo Mark D, MD 11/27/2024 3:12 PM Signed Noted and agree Yoseph Fall MD Allergies As of Date: 11/27/2024 (No Known Allergies) Date Reviewed: 11/22/2024 Reviewed by: Gregor Fernandez APRN.MAR[employer] CLAIM EXAMINER - Fully Assessed Reason for Visit: [facility] Nursing Call [Other] Prescriptions as of 11/27/2024 - doxycycline (VIBRA-TABS) 100 mg tablet Take 1 tablet by mouth two times a day for 10 days. - HYDROcodone-acetamino phen (NORCO) 5-325 mg per tablet Take 1 [...] by mouth two times a day. - ipratropium-albuterol (DUONEB) 0.5 mg-3 mg(2.5 mg [...] instructed every 4 hours as needed. - fluticasone-salmetero l (ADVAIR DISKUS) 500-50 mcg/dose dsdv Inhale 1 [...] directed. Dx: COPD J44.9 - Nebulizer Accessories [facility] Mask and supplies as needed - PULSE OXIMETER [facility] Use as directed to check oxygen saturation level - ammonium lactate (AMLACTIN) 12 % lotion Apply 1 application to affected area as needed for Dry Skin. - losartan (COZAAR) 50 mg tablet Take 0.5 tablets by mouth once daily. - OXYGEN, HOME THERAPY, 2.5 L/min by Nasal Cannula route continuous. Use as directred - Disposable Gloves (DISPOSABLE LATEX-FREE GLOVES) [facility] 1 Box once every [...] 06/27/2016 Constipatio (more content not included)... Normal [facility] DENIA GONZALE[facility] ([id number]) 1955 F Date Time Provider Department 11/24/24 CONNOR SHAW [place] During your visit today, we recorded the following information about you: Connor Shaw LISW 11/24/2024 11:11 AM Signed November 24, 2024 Opened by mistake, please disregard. ANAM Sagastume [facility] Social Work [phone] Allergies As of Date: 11/24/2024 (No Known Allergies) Date Reviewed: 11/22/2024 Reviewed by: Gregor Fernandez APRN.[facility] - Fully Assessed Prescriptions as of 11/24/2024 - doxycycline (VIBRA-TABS) 100 mg tablet Take 1 tablet by mouth two times a day for 10 days. - HYDROcodone-acetamino phen (NORCO) 5-325 mg per tablet Take 1 [...] by mouth two times a day. - ipratropium-albuterol (DUONEB) 0.5 mg-3 mg(2.5 mg [...] instructed every 4 hours as needed. - fluticasone-salmetero l (ADVAIR DISKUS) 500-50 mcg/dose dsdv Inhale 1 [...] directed. Dx: COPD J44.9 - [facility] supplies as needed - PULSE OXIMETER [facility] Use as directed to check oxygen saturation level - ammonium lactate (AMLACTIN) 12 % lotion Apply 1 application to affected area as needed for Dry Skin. - losartan (COZAAR) 50 mg tablet Take 0.5 tablets by mouth once daily. - OXYGEN, HOME THERAPY, 2.5 L/min by Nasal Cannula route continuous. Use as directred - Disposable Gloves (DISPOSABLE LATEX-FREE GLOVES) [facility] 1 Box once every [...] MRSA bacteremia (more content not included)... [facility] ([id number]) 1955 F Date Time Provider Department 11/24/24 RICHARD BROUSSARD [place] During your visit today, we recorded the following information about you: Richard Broussard, RN 11/24/2024 3:36 PM Signed Palliative Medicine at Home Care Coordination New Patient Note My chart note sent. Nurse introduced self and role of Fiberglass Bonding Machine Tender in Palliative Medicine. Reviewed contact sheet information and on-call process. Nurse educated patient on medication refill process. Nurse encouraged patient to call with any questions/concerns/sy mptom related issues. Richard Broussard RNCC Core Cleaner Allergies As of Date: 11/24/2024 (No Known Allergies) Date Reviewed: 11/22/2024 Reviewed by: Gregor Fernandez APRN.[employer] CLAIM EXAMINER - Fully Assessed Reason for Visit: Care Coordination [0941] Prescriptions as of 11/24/2024 - doxycycline (VIBRA-TABS) 100 mg tablet Take 1 tablet by mouth two times a day for 10 days. - HYDROcodone-acetamino phen (NORCO) 5-325 mg per tablet Take 1 [...] by mouth two times a day. - ipratropium-albuterol (DUONEB) 0.5 mg-3 mg(2.5 mg [...] instructed every 4 hours as needed. - fluticasone-salmetero l (ADVAIR DISKUS) 500-50 mcg/dose dsdv Inhale 1 [...] directed. Dx: COPD J44.9 - Nebulizer Accessories [facility] Mask and supplies as needed - PULSE OXIMETER [facility] Use as directed to check oxygen saturation level - ammonium lactate (AMLACTIN) 12 % lotion Apply 1 application to affected area as needed for Dry Skin. - losartan (COZAAR) 50 mg tablet Take 0.5 tablets by mouth once daily. - OXYGEN, HOME THERAPY, 2.5 L/min by Nasal Cannula route continuous. Use as directred - Disposable Gloves (DISPOSABLE LATEX-FREE GLOVES) [facility] 1 Box once every [...] 03/22/2007 B (more content not included)... [facility] Tele[facility] ([place]) DENIA GONZALEZ ([id number]) 1955 F Date Time Provider Department 11/23/24 RICHARD BROUSSARD [place] During your visit today, we recorded the [...] machine/device. Thank you, Richard Broussard, RNCC, PN Core Cleaner Allergies As of Date: 11/23/2024 (No Known Allergies) Date Reviewed: 11/22/2024 Reviewed by: Gregor Fernandez APRN.[place] - Fully Assessed Reason for Visit: Portable O2 device [Other] Care Coordination [3491] Prescriptions as of 11/30/2024 - doxycycline (VIBRA-TABS) 100 mg tablet Take 1 tablet by mouth two times a day for 10 days. - HYDROcodone-acetamino phen (NORCO) 5-325 mg per tablet Take 1 [...] by mouth two times a day. - ipratropium-albuterol (DUONEB) 0.5 mg-3 mg(2.5 mg [...] instructed every 4 hours as needed. - fluticasone-salmetero l (ADVAIR DISKUS) 500-50 mcg/dose dsdv Inhale 1 [...] directed. Dx: COPD J44.9 - Nebulizer Accessories [facility] Mask and supplies as needed - PULSE OXIMETER [facility] Use as directed to check oxygen saturation level - ammonium lactate (AMLACTIN) 12 % lotion Apply 1 application to affected area as needed for Dry Skin. - losartan (COZAAR) 50 mg tablet Take 0.5 tablets by mouth once daily. - OXYGEN, HOME THERAPY, 2.5 L/min by Nasal Cannula route continuous. Use as directred - Disposable Gloves (DISPOSABLE LATEX-FREE GLOVES) [facility] 1 Box once every [...] dependence, unspe* 08/11/2018 LUNG CANCER [C34.10] 04/13/2005 (more content not included)... [facility] 36on 11-22-2024 36 VC appt made I need to make chart and mail MAILER APPRENTICE packet. Working on getting records scanned in. [facility] DEN[facility] GON[facility]ALE[facility] ([id number]) 1955 F Date Time Provider Department 11/20/24 YOSE[place] FALL [facility] During your visit today, we recorded the following information about you: Sukhi Marrero, RN 11/20/2024 3:19 PM Signed Rafa RN with [facility] calls to let provider know that he [...] Dr. Fall for when returns or if MAILER APPRENTICE would review. KAREN Barney Mark D, MD 11/23/2024 2:33 PM Signed Does she feel that she still needs an antibiotic? MD Zaki Chopra Kathryn, MA 11/23/2024 2:51 PM Signed Pt states she still feels like she needs an antibiotic, unable to take Levaquin due to medication interaction. [facility] [place]. JOS Sandy Mark D, MD 11/24/2024 10:30 AM Signed OK for doxycycline as ordered Yoseph Fall MD Allergies As of Date: 11/20/2024 (No Known Allergies) Date Reviewed: 11/20/2024 Reviewed by: Gregor Fernandez APRN.MARINE INS[employer]ANCE CLAIM EXAMINER - Fully Assessed Reason for Visit: Patient Update [1234] Visit Diagnosis:Stage 3 severe COPD by GOLD classification (HCC) [J44.9] Order(s):doxycycline (VIBRA-TABS) 100 mg tabletTake 1 tablet by mouth two times a day for 10 days.Disp: 20 tabletRfl: 0 Prescriptions as of 11/24/2024 - doxycycline (VIBRA-TABS) 100 mg tablet Take 1 tablet by mouth two times a day for 10 days. - HYDROcodone-acetamino phen (NORCO) 5-325 mg per tablet Take 1 [...] by mouth two times a day. - ipratropium-albuterol (DUONEB) 0.5 mg-3 mg(2.5 mg [...] instructed every 4 hours as needed. - fluticasone-salmetero l (ADVAIR DISKUS) 500-50 mcg/dose dsdv Inhale 1 [...] directed. Dx: COPD J44.9 - Nebulizer Accessories [facility] Mask and supplies as needed - PULSE OXIMETER [facility] Use as directed to check oxygen saturation level - ammonium lactate (AMLACTIN) 12 % lotion Apply 1 application to affected area as needed for Dry Skin. - losartan (COZAAR) 50 mg tablet Take 0.5 tablets by mouth once daily. - OXYGEN, HOME THERAPY, 2.5 L/min by Nasal Cannula route c (more content not included)... Normal [facility]10-[facility] DENIA GONZALEZ ([id number]) 1955 F Date Time Provider Department 11/10/24 [facility] During your visit today, we recorded the following information about you: Padmini Abbott, KAREN 11/10/2024 3:48 PM Signed Patient's partner, Mike [...] RN 11/13/2024 2:10 PM Signed Brenda- nurse- [facility]- phoned to check on pcp reply to message below. Brenda reports when pt was discharged from [facility] she took the prednisone dose prescribed by [facility], and therefor ran out early. Advised message [...] Fully Assessed Reason for Visit: Patient Request [7764] Patient Update [8414] Visit Diagnosis:Stage 3 severe COPD by GOLD classification ([facility]) [J44.9] Order(s):predniSONE (DELTASONE) 10 mg tabletTake 1.5 [...] by mouth two times a day. - HYDROcodone-acetamino phen (NORCO) 5-325 mg per tablet Take 1 [...] by mouth two times a day. - ipratropium-albuterol (DUONEB) 0.5 mg-3 mg(2.5 mg [...] instructed every 4 hours as needed. - fluticasone-salmetero l (ADVAIR DISKUS) 500-50 mcg/dose dsdv Inhale 1 [...] directed. Dx: COPD J44.9 - Nebulizer Accessories [facility] Mask and supplies as needed - PULSE OXIMETER [facility] Use as directed to check oxygen saturation level - ammonium lactate (AMLACTIN) 12 % lotion Apply 1 application to affected area as needed for Dry Skin. - losartan (COZAAR) 50 mg tablet Take 0.5 tablets by mouth once daily. - OXYGEN, HOME THERAPY, 2.5 L/min by Nasal Cannula route continuo (more content not included)... Normal [facility] Cardiology Visit Reporton Cardiology Visit Report Normal [facility] 10-24-[facility] CNPN Telephone (FAMPWS) DENIA GONZALEZ ([id number]) 1955 F Date Time Provider Department 10/24/24 [...] swelling. Please call patient back with reply. [phone] KAREN Robledo Mark D, MD 10/24/2024 4:55 PM Signed OK for another 7 days of Levaquin MD Annmarie Chopra Amanda, RN 10/24/2024 5:00 PM Signed Pt called and is notified of providers message and instructions. Pt voices understanding. KAREN Merlos Michelle, RN 10/24/2024 5:30 PM Signed Rafa with [facility] is calling due to pharmacy unable to fill levaquin due to level 1 severe reaction with the multaq patient takes. When this happened when patient was d/c from [facility] hospital the antibitoc was change to cefdinir 300mg. [...] Fully Assessed Reason for Visit: Patient Request [4004] Order(s):levoFLOXacin (LEVAQUIN) 500 mg tabletTake 1 tablet by [...] by mouth two times a day. - HYDROcodone-acetamino phen (NORCO) 5-325 mg per tablet Take 1 [...] by mouth two times a day. - ipratropium-albuterol (DUONEB) 0.5 mg-3 mg(2.5 mg [...] instructed every 4 hours as needed. - fluticasone-salmetero l (ADVAIR DISKUS) 500-50 mcg/dose dsdv Inhale 1 [...] directed. Dx: COPD J44.9 - Nebulizer Accessories [facility] Mask and supplies as needed - PULSE OXIMETER [facility] Use as directed to check oxygen saturation level - ammonium lactate (AMLACTI (more content not included)... Normal [facility] Telephone (FAMPWS) DENIA GONZALEZ ([id number]) 1955 F Date Time Provider Department 10/24/24 YOSEPH FALL During your visit today, we recorded the following information about you: Jennifer Hennessy LPN 10/24/2024 4:29 PM Signed Ubaldo with [facility] calls in regard [...] severe COPD MD Liban Chopra M Robin, RN 10/25/2024 1:21 PM Signed Rafa [facility] reports patient asked him to call to [...] by mouth two times a day. - HYDROcodone-acetamino phen (NORCO) 5-325 mg per tablet Take 1 [...] by mouth two times a day. - ipratropium-albuterol (DUONEB) 0.5 mg-3 mg(2.5 mg [...] instructed every 4 hours as needed. - fluticasone-salmetero l (ADVAIR DISKUS) 500-50 mcg/dose dsdv Inhale 1 [...] directed. Dx: COPD J44.9 - Nebulizer Accessories [facility] Mask and supplies as needed - PULSE OXIMETER [facility] Use as directed to check oxygen saturation level - ammonium lactate (AMLACTIN) 12 % lotion Apply 1 application to affected area as needed for Dry Skin. - losartan (COZAAR) 50 mg tablet Take 0.5 tablets by mouth once daily. - OXYGEN, HOME THERAPY, 2.5 L/min by Nasal Cannula route continuous. Use as directred - Disposable Gloves (DISPOSABLE LATEX-FREE GLOVES) [facility] 1 Box once every [...] 10/24/2024 Noted (more content not included)... [facility] DEN[facility]ON[facility] ([id number]) 1955 F Date Time Provider Department 10/24/24 [facility] During your visit today, we recorded the following information about you: Richard Broussard, RN 10/24/2024 2:53 PM Signed Palliative Medicine [...] and chronic pain Virtual Visit Clinic location: [facility]- no safety concerns identified by nurse. Richard [...] Fully Assessed Reason for Visit: pall med- [id number] [Other] Initial Consult [665] Prescriptions as of 11/02/2024 - nicotine (NICODERM) 14 mg/24 hr apply one patch transdermally as directed every 24 hours - furosemide (LASIX) 20 mg tablet Take 1 tablet by mouth once daily. - verapamil ER 180 mg 24 hr capsule Take 1 capsule by mouth two times a day. - HYDROcodone-acetamino phen (NORCO) 5-325 mg per tablet Take 1 [...] by mouth two times a day. - ipratropium-albuterol (DUONEB) 0.5 mg-3 mg(2.5 mg [...] instructed every 4 hours as needed. - fluticasone-salmetero l (ADVAIR DISKUS) 500-50 mcg/dose dsdv Inhale 1 [...] directed. Dx: COPD J44.9 - Nebulizer Accessories [facility] Mask and supplies as needed - PULSE OXIMETER [facility] Use as directed to check oxygen saturation level - ammonium lactate (AMLACTIN) 12 % lotion Apply 1 application to affected area as needed for Dry Skin. - losartan (COZAAR) 50 mg tablet Take 0.5 tablets by mouth once daily. - OXYGEN, HOME THERAPY, 2.5 L/min by Nasal Cannula route continuous. Use as directred - Disposable Gloves (DISPOSABLE LATEX-FREE GLOVES) [facility] 1 Box once every [...] as of (more content not included)... Normal [facility] CNPNon 10-23-2024 CNPN Telephone (FAMPWS) DENIA GONZALEZ ([id number]) 1955 F Date Time Provider Department 10/23/24 YOSEPH FALL [facility] During your visit today, we recorded the following information about you: Clarisse Anguiano RN 10/23/2024 1:49 PM Signed Rafa JONES [facility] called in about Pt and states je [...] chronic generalized pain and is on the [place] for it. He states the Pt would like a Palliative care referral for pain and breathing. I told him I don't think they do Palliative care for pain, but for breathing they do. Clarisse Anguiano, Yoseph Huerta MD 10/23/2024 2:46 PM Signed OK for Palliative Care consult as requested MD Zaki Chopra Kathryn, MA 10/23/2024 3:47 PM Signed Rafa notified. Referral faxed, demo, insurance card, OV note, med list faxed to [facility] at [phone] with Palliative Care specified on fax. Naima Haines MA Allergies As of Date: 10/23/2024 (No Known Allergies) Date Reviewed: 10/17/2024 Reviewed by: Naima Haines MA - Fully Assessed Reason for Visit: Patient Update [1234] Primary Visit Diagnosis:Stage 3 severe COPD by GOLD classification ([facility]) [J44.9] Other Visit Diagnosis:Chronic low back pain with sciatica, sciatica laterality unspecified, unspecified back pain laterality [M54.40, G89.29] Order(s):CONSULT TO PALLIATIVE CARE [[id number]] Order #: [id number]: 1 FUTURE Prescriptions as of 10/23/2024 - furosemide (LASIX) 20 mg tablet Take 1 tablet by mouth once daily. - verapamil ER 180 mg 24 hr capsule Take 1 capsule by mouth two times a day. - HYDROcodone-acetamino phen (NORCO) 5-325 mg per tablet Take 1 [...] by mouth two times a day. - ipratropium-albuterol (DUONEB) 0.5 mg-3 mg(2.5 mg [...] instructed every 4 hours as needed. - fluticasone-salmetero l (ADVAIR DISKUS) 500-50 mcg/dose dsdv Inhale 1 [...] directed. Dx: COPD J44.9 - Nebulizer Accessories [facility] Mask and supplies as needed - PULSE OXIMETER [facility] Use as directed to check oxygen saturation level - ammonium lactate (AMLACTIN) 12 % lotion Apply 1 application to affected area as needed for Dry Skin. - losartan (COZAAR) 50 mg tablet Take 0.5 tablets by mouth once daily. - OXYGEN, HOME THERAPY, 2.5 L/min (more content not included)... Normal [facility] 10-20-2024 CNPN Telephone (FAMPWS) DENIA GONZALEZ ([id number]) 1955 F Date Time Provider Department 10/20/24 YOSEPH FALL [facility] [place] During your visit today, we recorded the [...] 10/20/2024 4:28 PM Signed Message left for Symtiffani to call back. JOS Sandy Sherrie, RN [...] by mouth two times a day. - HYDROcodone-acetamino phen (NORCO) 5-325 mg per tablet Take 1 [...] by mouth two times a day. - ipratropium-albuterol (DUONEB) 0.5 mg-3 mg(2.5 mg [...] instructed every 4 hours as needed. - fluticasone-salmetero l (ADVAIR DISKUS) 500-50 mcg/dose dsdv Inhale 1 [...] directed. Dx: COPD J44.9 - Nebulizer [place] [facility] [place] supplies as needed - PULSE OXIMETER [facility] Use as directed to check oxygen saturation level - ammonium lactate (AMLACTIN) 12 % lotion Apply 1 application to affected area as needed for Dry Skin. - losartan (COZAAR) 50 mg tablet Take 0.5 tablets by mouth once daily. - OXYGEN, HOME THERAPY, 2.5 L/min by Nasal Cannula route continuous. Use as directred - Disposable Gloves (DISPOSABLE LATEX-FREE GLOVES) [facility] [place] 1 Box once every month. ICD 10: M15.9, J44.9, M54.40 - Incontinence Pad, Liner, Disp (POISE PADS) pads Use pads as directed. Dx: N39.46 - COMPOUNDED PRESCRIPTION BLOOD PRESSURE CUFF FOR HOME USE. DX: HYPERTENSION I10. AUTOMATIC CUFF. - (more content not included)... Normal [facility] [place] 10-19-2024 [place] Telephone (FAMPWS) DENIA GONZALEZ ([id number]) 1955 F Date Time Provider Department 10/19/24 YOSEPH FALL During your visit today, we recorded the following information about you: Cami Louie, RN 10/19/2024 1:07 PM Signed Monae- nurse- [facility]- reports she saw patient today. Noted pt [...] by GOLD classification (HCC) [J44.9] Other Visit Diagnoses:Generalized osteoarthrosis, involving multiple sites [M15.9] Generalized anxiety disorder [F41.1] Chronic low back pain with sciatica, sciatica laterality unspecified, unspecified back pain laterality [M54.40, G89.29] Order(s):CONSULT TO PALLIATIVE CARE [[id number]] Order #: [id number]: 1 FUTURE Prescriptions as of 10/20/2024 - verapamil ER 180 mg 24 hr capsule Take 1 capsule by mouth two times a day. - HYDROcodone-acetamino phen (NORCO) 5-325 mg per tablet Take 1 [...] by mouth two times a day. - ipratropium-albuterol (DUONEB) 0.5 mg-3 mg(2.5 mg [...] instructed every 4 hours as needed. - fluticasone-salmetero l (ADVAIR DISKUS) 500-50 mcg/dose dsdv Inhale 1 [...] directed. Dx: COPD J44.9 - Nebulizer Accessories [facility] [place] and supplies as needed - PULSE OXIMETER [facility] Use as directed to check oxygen saturation level - ammonium lactate (AMLACTIN) 12 % lotion Apply 1 application to affected area as needed for Dry Skin. - losartan (COZAAR) 50 mg tablet Take 0.5 tablets by mouth once daily. - OXYGEN, HOME THERAPY, 2.5 L/min by Nasal Cannula route continuous. Use as directred - Disposable Gloves (DISPOSABLE LATEX-FREE GLOVES) [facility] [place] Box once every [...] CANCER [C34.1 (more content not included)... Normal [facility] [place] [facility]ON[facility]ALE[facility] ([id number]) 1955 F Date Time Provider Department [facility], we recorded the following information about you: Judy Bliss, RN 10/18/2024 10:51 AM Signed Vilma NICHOLSON calling from [facility] to report plan of care for [...] 1:08 PM Signed Mercedez ZHENG calling from [facility] to report plan of care for patient [...] by mouth two times a day. - HYDROcodone-acetamino phen (NORCO) 5-325 mg per tablet Take 1 [...] by mouth two times a day. - ipratropium-albuterol (DUONEB) 0.5 mg-3 mg(2.5 mg [...] instructed every 4 hours as needed. - fluticasone-salmetero l (ADVAIR DISKUS) 500-50 mcg/dose dsdv Inhale 1 [...] directed. Dx: COPD J44.9 - [facility] as needed - PULSE OXIMETER [facility] Use as directed to check oxygen saturation level - ammonium lactate (AMLACTIN) 12 % lotion Apply 1 application to affected area as needed for Dry Skin. - losartan (COZAAR) 50 mg tablet Take 0.5 tablets by mouth once daily. - OXYGEN, HOME THERAPY, 2.5 L/min by Nasal Cannula route continuous. Use as directred - Disposable Gloves (DISPOSABLE LATEX-FREE GLOVES) [facility] [place] 1 Box once every [...] Date 10/18/2024 (more content not included)... Normal [facility] CNPNon [facility] ([id number]) 1955 F Date Time Provider Department 10/13[facility] During your visit today, we recorded the following information about you: Judy Bliss RN 10/13/2024 4:40 PM Signed Edda from [facility] calls and states that they were supposed to do a PT evaluation this week, however, they are still waiting on insurance. Edda asking for delay care order. Please review and advise, KARNE Werner Mark D, MD 10/13/2024 4:49 PM Signed OK for delay of care order as requested MD Zaki Chopra Kathryn, MA 10/13/2024 4:52 PM Signed Edda notified. Naima Haines MA Allergies As of Date: 10/13/2024 (No Known Allergies) Date Reviewed: 07/06/2024 Reviewed by: Sanjana Baca MA - Fully Assessed Reason for Visit: PT Delay in Care Order [Other] Prescriptions as of 10/13/2024 - HYDROcodone-acetamino phen (NORCO) 5-325 mg per tablet Take 1 [...] by mouth two times a day. - ipratropium-albuterol (DUONEB) 0.5 mg-3 mg(2.5 mg [...] instructed every 4 hours as needed. - fluticasone-salmetero l (ADVAIR DISKUS) 500-50 mcg/dose dsdv Inhale 1 [...] directed. Dx: COPD J44.9 - Nebulizer Accessories [facility] [place] and supplies as needed - PULSE OXIMETER [facility] Use as directed to check oxygen saturation level - ammonium lactate (AMLACTIN) 12 % lotion Apply 1 application to affected area as needed for Dry Skin. - losartan (COZAAR) 50 mg tablet Take 0.5 tablets by mouth once daily. - OXYGEN, HOME THERAPY, 2.5 L/min by Nasal Cannula route continuous. Use as directred - Disposable Gloves (DISPOSABLE LATEX-FREE GLOVES) [facility] [place] 1 Box once every [...] Stage 3 severe COPD by GOLD classification ([facility]*09/28/2005 Asthma [J45.909] GENERAL OSTEOARTHROSIS [M15.9] Essential hypertension, benign [I10] GENERALIZED ANXIETY DIS [F41.1] ABNORMAL PAP SMEAR OF CERVIX NEC AND HPV [R89.6] ESOPHAGEAL REFLUX [K21.9] 03/22/2007 Back pain [M54.9] 10/21/2010 07/15/2021 Cholelithiasis with acute cholangitis with bili*06/21/2016 06/27/2016 Constipation [K59.00] 06/21/2016 06/27/2016 Bacteremia [R78.81] 06/23/2016 06/27/2016 Splenic lesion [D73.89] 06/25/2016 Calculus of bile duct with acute (more content not included)... Normal [facility] Basic Metabolic Profile (BMP )on 10-11-2024 BUN Normal 4-19 [facility] Comment on above: Result Comment: Canc elled via OM: Order cancelled - Patient discharged Performed By: #### L 500.2500, L100.0100 ####[facility] [address] [place], [address] BUN/CRE Normal 10-20 [facility] Comment on above: Result Comment: Canc elled via OM: Order cancelled - Patient discharged Performed By: #### L 500.2500, L100.0100 ####[facility] [address] [place], [address] Calcium Normal 7.6-11.0 [facility] Comment on above: Result Comment: Canc elled via OM: Order cancelled - Patient discharged Performed By: #### L 500.2500, L100.0100 ####[facility] [address] [place], [address] CL Normal 98-108 [facility] Comment on above: Result Comment: Canc elled via OM: Order cancelled - Patient discharged Performed By: #### L 500.2500, L100.0100 ####[facility] [address] [place], [address] CO2 Normal 21.0-32.0 [facility] Comment on above: Result Comment: Canc elled via OM: Order cancelled - Patient discharged Performed By: #### L 500.2500, L100.0100 ####[facility] [address] [place], [address] CREAT,SERUM Normal 0.70-1.20 [facility] Comment on above: Result Comment: Canc elled via OM: Order cancelled - Patient discharged Performed By: #### L 500.2500, L100.0100 ####[facility] [address] [place], [address] eGFR Normal >60 [facility] Comment on above: Result Comment: Canc elled via OM: Order cancelled - Patient discharged Performed By: #### L 500.2500, L100.0100 ####[facility] [address] [place], [address] GAP Normal 5-15 [facility] Comment on above: Result Comment: Canc elled via OM: Order cancelled - Patient discharged Performed By: #### L 500.2500, L100.0100 ####[facility] [address] [place], [address] GLU Normal 70-99 [facility] Comment on above: Result Comment: Canc elled via OM: Order cancelled - Patient discharged Performed By: #### L 500.2500, L100.0100 ####[facility] [address] [place], [address] Potassium Normal 3.3-5.1 [facility] Comment on above: Result Comment: Canc elled via OM: Order cancelled - Patient discharged Performed By: #### L 500.2500, L100.0100 ####[facility] [address] [place], [address] Basic Metabolic Profile (BMP) Normal 133-145 [facility] Comment on above: Result Comment: Canc elled via OM: Order cancelled - Patient discharged Performed By: #### L 500.2500, L100.0100 ####[facility] [address] [place], [address] CBC W/Diff, Automatedon 09-24 Absolute Neut Normal 2.0-7.7 [facility] Comment on above: Result Comment: Canc elled via OM: Order cancelled - Patient discharged Performed By: #### L 500.2500, L100.0100 ####[facility] [address] [place], [address] HCT Normal 37-47 [facility] Comment on above: Result Comment: Canc elled via OM: Order cancelled - Patient discharged Performed By: #### L 500.2500, L100.0100 ####[facility] [address] [place], [address] HGB Normal 12.0-15.0 [facility] Comment on above: Result Comment: Canc elled via OM: Order cancelled - Patient discharged Performed By: #### L 500.2500, L100.0100 ####[facility] [address] [place], [address] MCH Normal 27.0-32.0 [facility] Comment on above: Result Comment: Canc elled via OM: Order cancelled - Patient discharged Performed By: #### L 500.2500, L100.0100 ####[facility] [address] [place], [address] MCHC Normal 32-36 [facility] Comment on above: Result Comment: Canc elled via OM: Order cancelled - Patient discharged Performed By: #### L 500.2500, L100.0100 ####[facility] [address] [place], [address] MCV Normal 81-99 [facility] Comment on above: Result Comment: Canc elled via OM: Order cancelled - Patient discharged Performed By: #### L 500.2500, L100.0100 ####[facility] [address] [place], [address] NEUT% Normal 47-70 [facility] Comment on above: Result Comment: Canc elled via OM: Order cancelled - Patient discharged Performed By: #### L 500.2500, L100.0100 ####[facility] [address] [place], [address] PLT Normal 150-450 [facility] Comment on above: Result Comment: Canc elled via OM: Order cancelled - Patient discharged Performed By: #### L 500.2500, L100.0100 ####[facility] [address] [place], [address] RBC Normal 4.2-5.4 [facility] Comment on above: Result Comment: Canc elled via OM: Order cancelled - Patient discharged Performed By: #### L 500.2500, L100.0100 ####[facility] [address] [place], [address] RDW CV Normal 11.6-14.6 [facility] Comment on above: Result Comment: Canc elled via OM: Order cancelled - Patient discharged Performed By: #### L 500.2500, L100.0100 ####[facility] [address] [place], [address] RDW SD Normal 35.1-43.9 [facility] Comment on above: Result Comment: Canc elled via OM: Order cancelled - Patient discharged Performed By: #### L 500.2500, L100.0100 ####[facility] [address] [place], [address] WBC Normal 4.4-11.0 [facility] Comment on above: Result Comment: Canc elled via OM: Order cancelled - Patient discharged Performed By: #### L 500.2500, L100.0100 ####[facility] [address] [place], [address] Basic Metabolic Profile (BMP )on 10-10-2024 BUN Normal 4-19 [facility] Comment on above: Result Comment: Canc elled via OM: Order cancelled - Patient discharged Performed By: #### L 100.0100, L500.2500 ####[facility] [address] [place], [address] BUN/CRE Normal 10-20 [facility] Comment on above: Result Comment: Canc elled via OM: Order cancelled - Patient discharged Performed By: #### L 100.0100, L500.2500 ####[facility] [address] [place], [address] Calcium Normal 7.6-11.0 [facility] Comment on above: Result Comment: Canc elled via OM: Order cancelled - Patient discharged Performed By: #### L 100.0100, L500.2500 ####[facility] [address] [place], [address] CL Normal 98-108 [facility] Comment on above: Result Comment: Canc elled via OM: Order cancelled - Patient discharged Performed By: #### L 100.0100, L500.2500 ####[facility] [address] [place], [address] CO2 Normal 21.0-32.0 [facility] Comment on above: Result Comment: Canc elled via OM: Order cancelled - Patient discharged Performed By: #### L 100.0100, L500.2500 ####[facility] [address] [place], [address] CREAT,SERUM Normal 0.70-1.20 [facility] Comment on above: Result Comment: Canc elled via OM: Order cancelled - Patient discharged Performed By: #### L 100.0100, L500.2500 ####[facility] [address] [place], [address] eGFR Normal >60 [facility] Comment on above: Result Comment: Canc elled via OM: Order cancelled - Patient discharged Performed By: #### L 100.0100, L500.2500 ####[facility] [address] [place], [address] GAP Normal 5-15 [facility] Comment on above: Result Comment: Canc elled via OM: Order cancelled - Patient discharged Performed By: #### L 100.0100, L500.2500 ####[facility] [address] [place], [address] GLU Normal 70-99 [facility] Comment on above: Result Comment: Canc elled via OM: Order cancelled - Patient discharged Performed By: #### L 100.0100, L500.2500 ####[facility] [address] [place], [address] Potassium Normal 3.3-5.1 [facility] Comment on above: Result Comment: Canc elled via OM: Order cancelled - Patient discharged Performed By: #### L 100.0100, L500.2500 ####[facility] [address] [place], [address] Basic Metabolic Profile (BMP) Normal 133-145 [facility] Comment on above: Result Comment: Canc elled via OM: Order cancelled - Patient discharged Performed By: #### L 100.0100, L500.2500 ####[facility] [address] [place], [address] CBC W/Diff, Automatedon 06- Absolute Neut Normal 2.0-7.7 [facility] Comment on above: Result Comment: Canc elled via OM: Order cancelled - Patient discharged Performed By: #### L 100.0100, L500.2500 ####[facility] [address] [place], [address] HCT Normal 37-47 [facility] Comment on above: Result Comment: Canc elled via OM: Order cancelled - Patient discharged Performed By: #### L 100.0100, L500.2500 ####[facility] [address] [place], [address] HGB Normal 12.0-15.0 [facility] Comment on above: Result Comment: Canc elled via OM: Order cancelled - Patient discharged Performed By: #### L 100.0100, L500.2500 ####[facility] [address] [place], [address] MCH Normal 27.0-32.0 [facility] Comment on above: Result Comment: Canc elled via OM: Order cancelled - Patient discharged Performed By: #### L 100.0100, L500.2500 ####[facility] [address] [place], [address] MCHC Normal 32-36 [facility] Comment on above: Result Comment: Canc elled via OM: Order cancelled - Patient discharged Performed By: #### L 100.0100, L500.2500 ####[facility] [address] [place], [address] MCV Normal 81-99 [facility] Comment on above: Result Comment: Canc elled via OM: Order cancelled - Patient discharged Performed By: #### L 100.0100, L500.2500 ####[facility] [address] [place], [address] NEUT% Normal 47-70 [facility] Comment on above: Result Comment: Canc elled via OM: Order cancelled - Patient discharged Performed By: #### L 100.0100, L500.2500 ####[facility] [address] [place], [address] PLT Normal 150-450 [facility] Comment on above: Result Comment: Canc elled via OM: Order cancelled - Patient discharged Performed By: #### L 100.0100, L500.2500 ####[facility] [address] [place], [address] RBC Normal 4.2-5.4 [facility] Comment on above: Result Comment: Canc elled via OM: Order cancelled - Patient discharged Performed By: #### L 100.0100, L500.2500 ####[facility] [address] [place], [address] RDW CV Normal 11.6-14.6 [facility] Comment on above: Result Comment: Canc elled via OM: Order cancelled - Patient discharged Performed By: #### L 100.0100, L500.2500 ####[facility] [address] [place], [address] RDW SD Normal 35.1-43.9 [facility] Comment on above: Result Comment: Canc elled via OM: Order cancelled - Patient discharged Performed By: #### L 100.0100, L500.2500 ####[facility] [address] [place], [address] WBC Normal 4.4-11.0 [facility] Comment on above: Result Comment: Canc elled via OM: Order cancelled - Patient discharged Performed By: #### L 100.0100, L500.2500 ####[facility] [address] [place], [address] CNPNon 10-10-2024 [facility] DEN[facility] GON[facility]ALE[facility] ([id number]) 1955 F Date Time Provider Department 10/10/24 YOSEPH FALL [facility] During your visit today, we recorded the following information about you: Cami Louie, RN 10/10/2024 4:34 PM Signed [facility]- reports he did start of care [...] MA - Fully Assessed Reason for Visit: [facility] patient update [Other] Prescriptions as of 10/10/2024 [...] by mouth two times a day. - HYDROcodone-acetamino phen (NORCO) 5-325 mg per tablet Take 1 tablet by mouth two times a day as needed for pain for up to 30 days. - ipratropium-albuterol (DUONEB) 0.5 mg-3 mg(2.5 mg [...] instructed every 4 hours as needed. - fluticasone-salmetero l (ADVAIR DISKUS) 500-50 mcg/dose dsdv Inhale 1 [...] directed. Dx: COPD J44.9 - Nebulizer Accessories [facility] [place] and supplies as needed - PULSE OXIMETER [facility] Use as directed to check oxygen saturation level - ammonium lactate (AMLACTIN) 12 % lotion Apply 1 application to affected area as needed for Dry Skin. - losartan (COZAAR) 50 mg tablet Take 0.5 tablets by mouth once daily. - OXYGEN, HOME THERAPY, 2.5 L/min by Nasal Cannula route continuous. Use as directred - Disposable Gloves (DISPOSABLE LATEX-FREE GLOVES) [facility] [place] Box once every [...] HPV [ (more content not included)... Normal [facility] Absolute lymphocyte countOrd ered By: Lynne Schafer on 10-09-2024 Lymphocytes Auto (Unsp spec) [#/Vol] 0.67 10*3/uL Low 0.83-4.51 [facility] Absolute neutrophil countOrd ered By: Lynne Schafer on 10-09-2024 Neutrophils (Bld) [#/Vol] 8.4 10*3/uL High 2.0-7.7 [facility] Anion gap in Serum or Plasma Ordered By: Lynne Schafer on 10-09-2024 Anion gap [Moles/Vol] 5 mmol/L 5-15 [facility] Automated lymphocyte count a s percentage of total leukocytesOrdered By: Lynne Schafer on 10-09-2024 Lymphocytes/100 WBC Auto (Unsp spec) 6.9 % Low 19-41 [facility] BUN/creatinine ratioOrdered By: Lynne Schafer on 10-09-2024 Urea nitrogen/Creatinine [Mass ratio] 38.0 mg/mg High 10-20 [facility] Basic Metabolic Profile (BMP )on 10-09-2024 BUN/CRE 38.0 RATIO High 10- [facility] Comment on above: Performed By: #### L 100.0100, L500.2500 ####[facility] [address] [place], [address] Calcium [Mass/Vol] 8.4 mg/dL Normal 7.6-11.0 [facility] Comment on above: Performed By: #### L 100.0100, L500.2500 ####[facility] [address] [place], [address] Chloride [Moles/Vol] 93 mmol/L Low 98-108 [facility] Comment on above: Performed By: #### L 100.0100, L500.2500 ####[facility] [address] [place], [address] CO2 [Moles/Vol] 40.4 mmol/L High 21.0-32.0 [facility] Comment on above: Performed By: #### L 100.0100, L500.2500 ####[facility] [address] [place], [address] Creatinine [Mass/Vol] 0.44 mg/dL Low 0.70-1.20 [facility] Comment on above: Performed By: #### L 100.0100, L500.2500 ####[facility] [address] [place], [address] ECRCL 63.35 ml/min Normal 50-250 [facility] Comment on above: Performed By: #### L 100.0100, L500.2500 ####[facility] [address] [place], [address] GAP 5 Normal 5-15 [facility] Comment on above: Performed By: #### L 100.0100, L500.2500 ####[facility] [address] [place], [address] GFR/1.73 sq M.predicted among non-blacks MDRD (S/P/Bld) [Vol rate/Area] 105 mL/min/{1.73_m2} Normal >60 [facility] Comment on above: Result Comment: mL/m in/1.73m2 CKD-EPI Creatinine Equation (2020) Performed By: #### L 100.0100, L500.2500 ####[facility] [address] [place], [address] Glucose [Mass/Vol] 113 mg/dL High 70-99 [facility] Comment on above: Performed By: #### L 100.0100, L500.2500 ####[facility] [address] [place], [address] Potassium [Moles/Vol] 4.9 mmol/L Normal 3.3-5.1 [facility] Comment on above: Result Comment: Hemo lysis present, Results??could be affected.?? Performed By: #### L 100.0100, L500.2500 ####[facility] [address] [place], [address] Sodium [Moles/Vol] 139 mmol/L Normal 133-145 [facility] Comment on above: Performed By: #### L 100.0100, L500.2500 ####[facility] [address] [place], [address] Urea nitrogen [Mass/Vol] 17 mg/dL Normal 4-19 [facility] Comment on above: Performed By: #### L 100.0100, L500.2500 ####[facility] [address] [place], [address] Basophil percentageOrdered B y: Lynne Schafer on 10-09-2024 Basophils/100 WBC (Bld) 0.1 % 0-1 [facility] CBC W/Diff, Automatedon 09-24 Absolute Lymph 0.67 X10 3/uL Low 0.83-4.51 [facility] Comment on above: Performed By: #### L 100.0100, L500.2500 ####[facility] [address] [place], [address] Absolute Neut 8.4 X10 3/uL High 2.0-7.7 [facility] Comment on above: Performed By: #### L 100.0100, L500.2500 ####[facility] [address] [place], [address] Basophils/100 WBC (Bld) 0.1 % Normal 0-1 [facility] [facility] Comment on above: Performed By: #### L 100.0100, L500.2500 ####[facility] [address] [place], [address] Eosinophils/100 WBC (Bld) 0.0 % Normal 0-5 [facility] Comment on above: Performed By: #### L 100.0100, L500.2500 ####[facility] [address] [place], [address] Erythrocyte distribution width (RBC) [Ratio] 13.1 % Normal 11.6-14.6 [facility] Comment on above: Performed By: #### L 100.0100, L500.2500 ####[facility] [address] [place], [address] Hematocrit (Bld) [Volume fraction] 41.6 % Normal 37-47 [facility] Comment on above: Performed By: #### L 100.0100, L500.2500 ####[facility] [address] [place], [address] Hemoglobin (Bld) [Mass/Vol] 13.5 g/dL Normal 12.0-15.0 [facility] Comment on above: Performed By: #### L 100.0100, L500.2500 ####[facility] [address] [place], [address] IG% 0.800 Normal 0.0-0.9 [facility] Comment on above: Result Comment: IG% - Immature Granulocytes (promyelocytes, myelocytes andmetamyelocytes) > 1% indicates that a LEFT SHIFT is Present. Performed By: #### L 100.0100, L500.2500 ####[facility] [address] [place], [address] Lymphocytes/100 WBC (Bld) 6.9 % Low 19-41 [facility] Comment on above: Performed By: #### L 100.0100, L500.2500 ####[facility] [address] [place], [address] MCH (RBC) [Entitic mass] 27.9 pg Normal 27.0-32.0 [facility] Comment on above: Performed By: #### L 100.0100, L500.2500 ####[facility] [address] [place], [address] MCHC (RBC) [Mass/Vol] 32.5 g/dL Normal 32-36 [facility] Comment on above: Performed By: #### L 100.0100, L500.2500 ####[facility] [address] [place], [address] MCV (RBC) [Entitic vol] 86.0 fL Normal 81-99 [facility] Comment on above: Performed By: #### L 100.0100, L500.2500 ####[facility] [address] [place], [address] Monocytes/100 WBC (Bld) 5.3 % Normal 0-10 [facility] Comment on above: Performed By: #### L 100.0100, L500.2500 ####[facility] [address] [place], [address] Neutrophils/100 WBC (Bld) 86.9 % High 47-70 [facility] Comment on above: Performed By: #### L 100.0100, L500.2500 ####[facility] [address] [place], [address] Nucleated RBC (Bld) [#/Vol] 0 10*3/uL Normal 0-5 [facility] Comment on above: Performed By: #### L 100.0100, L500.2500 ####[facility] [address] [place], [address] Platelet mean volume (Bld) [Entitic vol] 10.0 fL Normal 6.2-12.0 [facility] Comment on above: Performed By: #### L 100.0100, L500.2500 ####[facility] [address] [place], [address] Platelets (Bld) [#/Vol] 181 10*3/uL Normal 150-450 [facility] Comment on above: Performed By: #### L 100.0100, L500.2500 ####[facility] [address] [place], [address] RBC (Bld) [#/Vol] 4.84 10*6/uL Normal 4.2-5.[address] [facility] Comment on above: Performed By: #### L 100.0100, L500.2500 ####[facility] [address] [place], [address] RDW SD 41.1 fl Normal 35.1-43.9 [facility] Comment on above: Performed By: #### L 100.0100, L500.2500 ####[facility] [address] [place], [address] WBC (Bld) [#/Vol] 9.7 10*3/uL Normal 4.4-11.0 [facility] Comment on above: Performed By: #### L 100.0100, L500.2500 ####[facility] [address] [place], [address] CNPNon 10-09-2024 [facility] Telephone (FAMPWS) DENIA GONZALEZ ([id number]) 1955 F Date Time Provider Department 10/09[facility] During your visit today, we recorded the following information about you: Clarisse Anguiano, KAREN 10/09/2024 7:28 PM Signed Pt's significant other Mike called in and reports Pt was in the hospital for 11 days and released about an hour and a half ago. He states [facility] in [place] doesn't have the Multaq in stock, but [...] PM Signed They may wait until [facility] can get the Multaq tomorrow MD Zaki [...] by mouth two times a day. - HYDROcodone-acetamino phen (NORCO) 5-325 mg per tablet Take 1 tablet by mouth two times a day as needed for pain for up to 30 days. - ipratropium-albuterol (DUONEB) 0.5 mg-3 mg(2.5 mg [...] instructed every 4 hours as needed. - fluticasone-salmetero l (ADVAIR DISKUS) 500-50 mcg/dose dsdv Inhale 1 [...] as needed. - Nebulizer and Compressor For [facility] Use as directed. Dx: COPD J44.9 - Nebulizer Accessories [facility] Mask and supplies as needed - PULSE OXIMETER [facility] Use as directed to check oxygen saturation level - ammonium lactate (AMLACTIN) 12 % lotion Apply 1 application to affected area as needed for Dry Skin. - losartan (COZAAR) 50 mg tablet Take 0.5 tablets by mouth once daily. - OXYGEN, HOME THERAPY, 2.5 L/min by Nasal Cannula route continuous. Use as directred - Disposable Gloves (DISPOSABLE LATEX-FREE GLOVES) [facility] 1 Box once every month. ICD 10: M15.9, J44.9, M54.40 - Incontinence Pad, Liner, Disp (POISE PADS) pads Use pads as directed. Dx: N39.46 - COMPOUNDED PRESCRIPTION BLOOD PRESSURE CUFF FOR HOME USE. DX: HYPERTENSION I10. AUTOMATIC CU (more content not included)... Normal [facility] Telephone (FAMPWS) DENIA GONZALEZ ([id number]) 1955 F Date Time Provider Department 10/09/24 YOSEPH FALL During your visit today, we recorded the following information about you: Sukhi Marrero RN 10/09/2024 3:10 PM Signed Iman with [facility] HH calls to ask if provider will follow their HH orders for SN, PT, OT. Patient discharging home today from [facility] after being treated for COPD exacerbation and new onset A-fib. Please call Iman back at [phone]. KAREN Barney Mark D, MD 10/09/2024 3:54 PM Signed Yes, I will follow their HH orders for SN, PT, OT MD Zaki [...] by mouth two times a day. - HYDROcodone-acetamino phen (NORCO) 5-325 mg per tablet Take 1 tablet by mouth two times a day as needed for pain for up to 30 days. - ipratropium-albuterol (DUONEB) 0.5 mg-3 mg(2.5 mg [...] instructed every 4 hours as needed. - fluticasone-salmetero l (ADVAIR DISKUS) 500-50 mcg/dose dsdv Inhale 1 [...] directed. Dx: COPD J44.9 - Nebulizer Accessories [facility] Mask and supplies as needed - PULSE OXIMETER [facility] Use as directed to check oxygen saturation level - ammonium lactate (AMLACTIN) 12 % lotion Apply 1 application to affected area as needed for Dry Skin. - losartan (COZAAR) 50 mg tablet Take 0.5 tablets by mouth once daily. - OXYGEN, HOME THERAPY, 2.5 L/min by Nasal Cannula route continuous. Use as directred - Disposable Gloves (DISPOSABLE LATEX-FREE GLOVES) [facility] 1 Box once every [...] (more content not included)... [facility]) [facility] ([id number]) 1955 F Date Time Provider Department 10/09/24 YOSEPH FALL FAMPWS During your visit today, we recorded the following information about you: Padmini Abbott RN 10/09/2024 8:40 AM Signed Palma Silvio with [facility] calling to update provider that patient has been at [facility] since 09/29/24. KAREN Robledo Mark D, MD 10/09/2024 2:09 PM Signed Noted Yoseph Fall MD Allergies As of Date: 10/09/2024 (No Known Allergies) Date Reviewed: 07/06/2024 Reviewed by: Sanjana Baca MA - Fully Assessed Reason for Visit: Patient Update [1234] Prescriptions as of 10/09/2024 - busPIRone (BUSPAR) 10 mg tablet Take 1 tablet by mouth two times a day. - HYDROcodone-acetamino phen (NORCO) 5-325 mg per tablet Take 1 tablet by mouth two times a day as needed for pain for up to 30 days. - ipratropium-albuterol (DUONEB) 0.5 mg-3 mg(2.5 mg [...] instructed every 4 hours as needed. - fluticasone-salmetero l (ADVAIR DISKUS) 500-50 mcg/dose dsdv Inhale 1 [...] directed. Dx: COPD J44.9 - Nebulizer Accessories [facility] Mask and supplies as needed - PULSE OXIMETER [facility] Use as directed to check oxygen saturation level - ammonium lactate (AMLACTIN) 12 % lotion Apply 1 application to affected area as needed for Dry Skin. - losartan (COZAAR) 50 mg tablet Take 0.5 tablets by mouth once daily. - OXYGEN, HOME THERAPY, 2.5 L/min by Nasal Cannula route continuous. Use as directred - Disposable Gloves (DISPOSABLE LATEX-FREE GLOVES) [facility] 1 Box once every [...] Status:Closed by YOSEPH FALL on 10/09/24 Normal [facility] Carbon dioxide, total [Moles /volume] in Central venous bloodOrdered By: Lynne Schafer on 10-09-2024 CO2 [Moles/Vol] 40.4 mmol/L High 21.0-32.0 [facility] Chloride assayOrdered By: Na na Gilmar on 10-09-2024 Chloride [Moles/Vol] 93 mmol/L Low 98-108 [facility] Discharge Instructionon 09-24 Discharge Instruction Normal [facility] Eosinophil percentageOrdered By: Lynne Schafer on 10-09-2024 Eosinophils/100 WBC (Bld) 0.0 % 0-5 [facility] Erythrocyte distribution wid th ratioOrdered By: Lynne Schafer on 10-09-2024 Erythrocyte distribution width (RBC) [Ratio] 13.1 % 11.6-14.6 [facility] Erythrocyte distribution wid th standard deviationOrdered By: Lynne Schafer on 10-09-2024 Erythrocyte distribution width (RBC) [Ratio] 41.1 fl 35.1-43.9 [facility] Glomerular filtration rate ( GFR) estimation/1.73 sq m using serum, plasma, or whole bOrdered By: Lynne Schafer on 10-09-2024 GFR/1.73 sq M.predicted among non-blacks MDRD (S/P/Bld) [Vol rate/Area] 105 mL/min/{1.73_m2} >60 [facility] Comment on above: mL/min/1.73m2 CKD-EP I Creatinine Equation (2020) Hematocrit Auto (Bld) [Volum e fraction]Ordered By: Lynne Schafer on 10-09-2024 Hematocrit (Bld) [Volume fraction] 41.6 % 37-47 [facility] Hemoglobin measurementOrdere d By: Lynne Schafer on 10-09-2024 Hemoglobin (Bld) [Mass/Vol] 13.5 g/dL 12.0-15.0 [facility] Immature granulocytes/100 WB C Auto (Bld)Ordered By: Lynne Schafer 10-09-2024 Immature granulocytes/100 WBC (Bld) 0.800 % 0.0-0.9 [facility] Comment on above: IG% - Immature Granu locytes (promyelocytes, myelocytes and metamyelocytes) > 1% indicates that a LEFT SHIFT is Present. MCV (mean corpuscular volume ) determinationOrdered By: Lynne Schafer on 10-09-2024 MCV (RBC) [Entitic vol] 86.0 fL 81-99 [facility] Mean corpuscular hemoglobin (MCH) determinationOrdered By: Lynne Schafer 10-09-2024 MCH (RBC) [Entitic mass] 27.9 pg 27.0-32.0 [facility] Mean corpuscular hemoglobin concentration (MCHC) determinationOrdered By: Lynne Schafer 10-09-2024 MCHC (RBC) [Mass/Vol] 32.5 g/dL 32-36 [facility] Mean platelet volume determi nationOrdered By: Lynne Schafer 10-09-2024 Platelet mean volume (Bld) [Entitic vol] 10.0 fL 6.2-12.0 [facility] Monocyte percentageOrdered B y: Lynen Schafer on 10-09-2024 Monocytes/100 WBC (Bld) 5.3 % 0-10 [facility] Neutrophil percentageOrdered By: Lynne Schafer on 10-09-2024 Neutrophils/100 WBC (Bld) 86.9 % High 47-70 [facility] Nucleated red blood cell per centageOrdered By: Lynne Schafer on 10-09-2024 Nucleated RBC/100 WBC (Bld) [Ratio] 0 % 0-5 [facility] Platelet countOrdered By: Kathi Schafer on 10-09-2024 Platelets (Bld) [#/Vol] 181 10*3/uL 150-450 [facility] Potassium measurement (mass/ volume)Ordered By: Lynne Schafer on 10-09-2024 Potassium (Unsp spec) [Mass/Vol] 4.9 mmol/L 3.3-5.1 [facility] Comment on above: Hemolysis present, R esults could be affected. RBC Auto (Bld) [#/Vol]Ordere d By: Lynne Schafer on 10-09-2024 RBC (Bld) [#/Vol] 4.84 10*6/uL 4.2-5.[address] [facility] Serum creatinine measurement (mass/volume)Ordered By: Lynne Schafer on 10-09-2024 Creatinine [Mass/Vol] 0.44 mg/dL Low 0.70-1.20 [facility] Serum glucose measurement (m ass/volume)Ordered By: Lynne Schafer on 10-09-2024 Glucose [Mass/Vol] 113 mg/dL High 70-99 [facility] Serum or plasma calcium kadi urement (mass/volume)Ordered By: Lynne Schafer on 10-09-2024 Calcium [Mass/Vol] 8.4 mg/dL 7.6-11.0 [facility] Serum or plasma urea nitroge n measurement (mass/volume)Ordered By: Lynne Schafer on 10-09-2024 Urea nitrogen [Mass/Vol] 17 mg/dL 4-19 [facility] Sodium levelOrdered By: Lynne Schafer on 10-09-2024 Sodium [Moles/Vol] 139 mmol/L 133-145 [facility] White blood cell (WBC) count Ordered By: Lynne Schafer on 10-09-2024 WBC (Bld) [#/Vol] 9.7 10*3/uL 4.4-11.0 [facility] 12 Lead EKGon 10-08-2024 12 Lead EKG Normal [facility] Basic Metabolic Profile (BMP )on 10-08-2024 BUN/CRE 34.4 RATIO High 10-20 [facility] Comment on above: Performed By: #### L 100.0100, L500.2500 ####[facility] [address] [place], [address] Calcium [Mass/Vol] 8.1 mg/dL Normal 7.6-11.0 [facility] Comment on above: Performed By: #### L 100.0100, L500.2500 ####[facility] [address] [place], [address] Chloride [Moles/Vol] 92 mmol/L Low 98-108 [facility] Comment on above: Performed By: #### L 100.0100, L500.2500 ####[facility] [address] [place], [address] CO2 [Moles/Vol] 38.6 mmol/L High 21.0-32.0 [facility] Comment on above: Performed By: #### L 100.0100, L500.2500 ####[facility] [address] [place], [address] Creatinine [Mass/Vol] 0.51 mg/dL Low 0.70-1.20 [facility] Comment on above: Performed By: #### L 100.0100, L500.2500 ####[facility] [address] [place], [address] ECRCL 64.27 ml/min Normal 50-250 [facility] Comment on above: Performed By: #### L 100.0100, L500.2500 ####[facility] [address] [place], [address] GAP 7 Normal 5-15 [facility] Comment on above: Performed By: #### L 100.0100, L500.2500 ####[facility] [address] [place], [address] GFR/1.73 sq M.predicted among non-blacks MDRD (S/P/Bld) [Vol rate/Area] 101 mL/min/{1.73_m2} Normal >60 [facility] Comment on above: Result Comment: mL/m in/1.73m2 CKD-EPI Creatinine Equation (2020) Performed By: #### L 100.0100, L500.2500 ####[facility] [address] [place], [address] Glucose [Mass/Vol] 179 mg/dL High 70-99 [facility] Comment on above: Performed By: #### L 100.0100, L500.2500 ####[facility] [address] [place], [address] Potassium [Moles/Vol] 4.6 mmol/L Normal 3.3-5.1 [facility] Comment on above: Performed By: #### L 100.0100, L500.2500 ####[facility] [address] [place], [address] Sodium [Moles/Vol] 138 mmol/L Normal 133-145 [facility] Comment on above: Performed By: #### L 100.0100, L500.2500 ####[facility] [address] [place], [address] Urea nitrogen [Mass/Vol] 18 mg/dL Normal 4-19 [facility] Comment on above: Performed By: #### L 100.0100, L500.2500 ####[facility] [address] [place], [address] CBC W/Diff, Automatedon 06-1 Absolute Lymph 0.41 X10 3/uL Low 0.83-4.51 [facility] Comment on above: Performed By: #### L 100.0100, L500.2500 ####[facility] [address] [place], [address] Absolute Neut 7.2 X10 3/uL Normal 2.0-7.7 [facility] Comment on above: Performed By: #### L 100.0100, L500.2500 ####[facility] [address] [place], [address] Basophils/100 WBC (Bld) 0.2 % Normal 0-1 [facility] Comment on above: Performed By: #### L 100.0100, L500.2500 ####[facility] [address] [place], [address] Eosinophils/100 WBC (Bld) 0.0 % Normal 0-5 [facility] Comment on above: Performed By: #### L 100.0100, L500.2500 ####[facility] [address] [place], [address] Erythrocyte distribution width (RBC) [Ratio] 13.0 % Normal 11.6-14.6 [facility] Comment on above: Performed By: #### L 100.0100, L500.2500 ####[facility] [address] [place], [address] Hematocrit (Bld) [Volume fraction] 41.6 % Normal 37-47 [facility] Comment on above: Performed By: #### L 100.0100, L500.2500 ####[facility] [address] [place], [address] Hemoglobin (Bld) [Mass/Vol] 13.2 g/dL Normal 12.0-15.0 [facility] Comment on above: Performed By: #### L 100.0100, L500.2500 ####[facility] [address] [place], [address] IG% 0.900 Normal 0.0-0.9 [facility] Comment on above: Result Comment: IG% - Immature Granulocytes (promyelocytes, myelocytes andmetamyelocytes) > 1% indicates that a LEFT SHIFT is Present. Performed By: #### L 100.0100, L500.2500 ####[facility] [address] [place], [address] Lymphocytes/100 WBC (Bld) 5.1 % Low 19-41 [facility] Comment on above: Performed By: #### L 100.0100, L500.2500 ####[facility] [address] [place], [address] MCH (RBC) [Entitic mass] 27.3 pg Normal 27.0-32.0 [facility] Comment on above: Performed By: #### L 100.0100, L500.2500 ####[facility] [address] [place], [address] MCHC (RBC) [Mass/Vol] 31.7 g/dL Low 32-36 [facility] Comment on above: Performed By: #### L 100.0100, L500.2500 ####[facility] [address] [place], [address] MCV (RBC) [Entitic vol] 86.1 fL Normal 81-99 [facility] Comment on above: Performed By: #### L 100.0100, L500.2500 ####[facility] [address] [place], [address] Monocytes/100 WBC (Bld) 4.7 % Normal 0-10 [facility] Comment on above: Performed By: #### L 100.0100, L500.2500 ####[facility] [address] [place], [address] Neutrophils/100 WBC (Bld) 89.1 % High 47-70 [facility] Comment on above: Performed By: #### L 100.0100, L500.2500 ####[facility] [address] [place], [address] Nucleated RBC (Bld) [#/Vol] 0 10*3/uL Normal 0-5 [facility] Comment on above: Performed By: #### L 100.0100, L500.2500 ####[facility] [address] [place], [address] Platelet mean volume (Bld) [Entitic vol] 10.0 fL Normal 6.2-12.0 [facility] Comment on above: Performed By: #### L 100.0100, L500.2500 ####[facility] [address] [place], [address] Platelets (Bld) [#/Vol] 168 10*3/uL Normal 150-450 [facility] Comment on above: Performed By: #### L 100.0100, L500.2500 ####[facility] [address] [place], [address] RBC (Bld) [#/Vol] 4.83 10*6/uL Normal 4.2-5.[address] [facility] Comment on above: Performed By: #### L 100.0100, L500.2500 ####[facility] [address] [place], [address] RDW SD 40.7 fl Normal 35.1-43.9 [facility] Comment on above: Performed By: #### L 100.0100, L500.2500 ####[facility] [address] [place], [address] WBC (Bld) [#/Vol] 8.1 10*3/uL Normal 4.4-11.0 [facility] Comment on above: Performed By: #### L 100.0100, L500.2500 ####[facility] [address] [place], [address] Basic Metabolic Profile (BMP )on 10-07-2024 BUN/CRE 37.1 RATIO High 10-20 [facility] Comment on above: Performed By: #### L 500.2500, L100.0100 ####[facility] [address] [place], [address] Calcium [Mass/Vol] 8.1 mg/dL Normal 7.6-11.0 [facility] Comment on above: Performed By: #### L 500.2500, L100.0100 ####[facility] [address] [place], [address] Chloride [Moles/Vol] 93 mmol/L Low 98-108 [facility] Comment on above: Performed By: #### L 500.2500, L100.0100 ####[facility] [address] [place], [address] CO2 [Moles/Vol] 38.2 mmol/L High 21.0-32.0 [facility] Comment on above: Performed By: #### L 500.2500, L100.0100 ####[facility] [address] [place], [address] Creatinine [Mass/Vol] 0.50 mg/dL Low 0.70-1.20 [facility] Comment on above: Performed By: #### L 500.2500, L100.0100 ####[facility] [address] [place], [address] ECRCL 63.81 ml/min Normal 50-250 [facility] Comment on above: Performed By: #### L 500.2500, L100.0100 ####[facility] [address] [place], [address] GAP 6 Normal 5-15 [facility] Comment on above: Performed By: #### L 500.2500, L100.0100 ####[facility] [address] [place], [address] GFR/1.73 sq M.predicted among non-blacks MDRD (S/P/Bld) [Vol rate/Area] 101 mL/min/{1.73_m2} Normal >60 [facility] Comment on above: Result Comment: mL/m in/1.73m2 CKD-EPI Creatinine Equation (2020) Performed By: #### L 500.2500, L100.0100 ####[facility] [address] [place], [address] Glucose [Mass/Vol] 192 mg/dL High 70-99 [facility] Comment on above: Performed By: #### L 500.2500, L100.0100 ####[facility] [address] [place], [address] Potassium [Moles/Vol] 4.8 mmol/L Normal 3.3-5.1 [facility] Comment on above: Result Comment: Hemo lysis present, Results??could be affected.?? Performed By: #### L 500.2500, L100.0100 ####[facility] [address] [place], [address] Sodium [Moles/Vol] 137 mmol/L Normal 133-145 [facility] Comment on above: Performed By: #### L 500.2500, L100.0100 ####[facility] [address] [place], [address] Urea nitrogen [Mass/Vol] 19 mg/dL Normal 4-19 [facility] Comment on above: Performed By: #### L 500.2500, L100.0100 ####[facility] [address] [place], [address] CBC W/Diff, Automatedon 06-1 Absolute Lymph 0.39 X10 3/uL Low 0.83-4.51 [facility] Comment on above: Performed By: #### L 500.2500, L100.0100 ####[facility] [address] [place], [address] Absolute Neut 8.0 X10 3/uL High 2.0-7.7 [facility] Comment on above: Performed By: #### L 500.2500, L100.0100 ####[facility] [address] [place], [address] Basophils/100 WBC (Bld) 0.2 % Normal 0-1 [facility] Comment on above: Performed By: #### L 500.2500, L100.0100 ####[facility] [address] [place], [address] Eosinophils/100 WBC (Bld) 0.0 % Normal 0-5 [facility] Comment on above: Performed By: #### L 500.2500, L100.0100 ####[facility] [address] [place], [address] Erythrocyte distribution width (RBC) [Ratio] 13.0 % Normal 11.6-14.6 [facility] Comment on above: Performed By: #### L 500.2500, L100.0100 ####[facility] [address] [place], [address] Hematocrit (Bld) [Volume fraction] 41.4 % Normal 37-47 [facility] Comment on above: Performed By: #### L 500.2500, L100.0100 ####[facility] [address] [place], [address] Hemoglobin (Bld) [Mass/Vol] 13.5 g/dL Normal 12.0-15.0 [facility] Comment on above: Performed By: #### L 500.2500, L100.0100 ####[facility] [address] [place], [address] IG% 0.900 Normal 0.0-0.9 [facility] Comment on above: Result Comment: IG% - Immature Granulocytes (promyelocytes, myelocytes andmetamyelocytes) > 1% indicates that a LEFT SHIFT is Present. Performed By: #### L 500.2500, L100.0100 ####[facility] [address] [place], [address] Lymphocytes/100 WBC (Bld) 4.3 % Low 19-41 [facility] Comment on above: Performed By: #### L 500.2500, L100.0100 ####[facility] [address] [place], [address] MCH (RBC) [Entitic mass] 28.2 pg Normal 27.0-32.0 [facility] Comment on above: Performed By: #### L 500.2500, L100.0100 ####[facility] [address] [place], [address] MCHC (RBC) [Mass/Vol] 32.6 g/dL Normal 32-36 [facility] Comment on above: Performed By: #### L 500.2500, L100.0100 ####[facility] [address] [place], [address] MCV (RBC) [Entitic vol] 86.6 fL Normal 81-99 [facility] Comment on above: Performed By: #### L 500.2500, L100.0100 ####[facility] [address] [place], [address] Monocytes/100 WBC (Bld) 5.4 % Normal 0-10 [facility] Comment on above: Performed By: #### L 500.2500, L100.0100 ####[facility] [address] [place], [address] Neutrophils/100 WBC (Bld) 89.2 % High 47-70 [facility] Comment on above: Performed By: #### L 500.2500, L100.0100 ####[facility] [address] [place], [address] Nucleated RBC (Bld) [#/Vol] 0 10*3/uL Normal 0-5 [facility] Comment on above: Performed By: #### L 500.2500, L100.0100 ####[facility] [address] [place], [address] Platelet mean volume (Bld) [Entitic vol] 9.9 fL Normal 6.2-12.0 [facility] Comment on above: Performed By: #### L 500.2500, L100.0100 ####[facility] [address] [place], [address] Platelets (Bld) [#/Vol] 176 10*3/uL Normal 150-450 [facility] Comment on above: Performed By: #### L 500.2500, L100.0100 ####[facility] [address] [place], [address] RBC (Bld) [#/Vol] 4.78 10*6/uL Normal 4.2-5.[address] [facility] Comment on above: Performed By: #### L 500.2500, L100.0100 ####[facility] [address] [place], [address] RDW SD 41.1 fl Normal 35.1-43.9 [facility] Comment on above: Performed By: #### L 500.2500, L100.0100 ####[facility] [address] [place], [address] WBC (Bld) [#/Vol] 9.0 10*3/uL Normal 4.4-11.0 [facility] Comment on above: Performed By: #### L 500.2500, L100.0100 ####[facility] [address] [place], [address] Magnesiumon 10-07-2024 Magnesium [Mass/Vol] 2.5 mg/dL High 1.5-2.2 [facility] Comment on above: Performed By: #### L 501.5200 ####[facility] [address] [place], [address] Magnesium measurement (mass/ volume)Ordered By: Michael Plasencia on 10-07-2024 Magnesium (Unsp spec) [Mass/Vol] 2.5 mg/dL High 1.5-2.2 [facility] Basic Metabolic Profile (BMP )on 10-06-2024 BUN/CRE 43.8 RATIO High 10-20 [facility] Comment on above: Performed By: #### L 100.0100, L500.2500 ####[facility] [address] [place], [address] Calcium [Mass/Vol] 8.3 mg/dL Normal 7.6-11.0 [facility] Comment on above: Performed By: #### L 100.0100, L500.2500 ####[facility] [address] [place], [address] Chloride [Moles/Vol] 94 mmol/L Low 98-108 [facility] Comment on above: Performed By: #### L 100.0100, L500.2500 ####[facility] [address] [place], [address] CO2 [Moles/Vol] 36.3 mmol/L High 21.0-32.0 [facility] Comment on above: Performed By: #### L 100.0100, L500.2500 ####[facility] [address] [place], [address] Creatinine [Mass/Vol] 0.45 mg/dL Low 0.70-1.20 [facility] Comment on above: Performed By: #### L 100.0100, L500.2500 ####[facility] [address] [place], [address] ECRCL 63.77 ml/min Normal 50-250 [facility] Comment on above: Performed By: #### L 100.0100, L500.2500 ####[facility] [address] [place], [address] GAP 7 Normal 5-15 [facility] Comment on above: Performed By: #### L 100.0100, L500.2500 ####[facility] [address] [place], [address] GFR/1.73 sq M.predicted among non-blacks MDRD (S/P/Bld) [Vol rate/Area] 104 mL/min/{1.73_m2} Normal >60 [facility] Comment on above: Result Comment: mL/m in/1.73m2 CKD-EPI Creatinine Equation (2020) Performed By: #### L 100.0100, L500.2500 ####[facility] [address] [place], [address] Glucose [Mass/Vol] 168 mg/dL High 70-99 [facility] Comment on above: Performed By: #### L 100.0100, L500.2500 ####[facility] [address] [place], [address] Potassium [Moles/Vol] 4.5 mmol/L Normal 3.3-5.1 [facility] Comment on above: Performed By: #### L 100.0100, L500.2500 ####[facility] [address] [place], [address] Sodium [Moles/Vol] 137 mmol/L Normal 133-145 [facility] Comment on above: Performed By: #### L 100.0100, L500.2500 ####[facility] [address] [place], [address] Urea nitrogen [Mass/Vol] 20 mg/dL High 4-19 [facility] Comment on above: Performed By: #### L 100.0100, L500.2500 ####[facility] [address] [place], [address] CBC W/Diff, Automatedon 06-04 28-2024 Absolute Lymph 0.44 X10 3/uL Low 0.83-4.51 [facility] Comment on above: Performed By: #### L 100.0100, L500.2500 ####[facility] [address] [place], [address] Absolute Neut 8.7 X10 3/uL High 2.0-7.7 [facility] Comment on above: Performed By: #### L 100.0100, L500.2500 ####[facility] [address] [place], [address] Basophils/100 WBC (Bld) 0.1 % Normal 0-1 [facility] Comment on above: Performed By: #### L 100.0100, L500.2500 ####[facility] [address] [place], [address] Eosinophils/100 WBC (Bld) 0.0 % Normal 0-5 [facility] Comment on above: Performed By: #### L 100.0100, L500.2500 ####[facility] [address] [place], [address] Erythrocyte distribution width (RBC) [Ratio] 13.0 % Normal 11.6-14.6 [facility] Comment on above: Performed By: #### L 100.0100, L500.2500 ####[facility] [address] [place], [address] Hematocrit (Bld) [Volume fraction] 43.5 % Normal 37-47 [facility] Comment on above: Performed By: #### L 100.0100, L500.2500 ####[facility] [address] [place], [address] Hemoglobin (Bld) [Mass/Vol] 14.2 g/dL Normal 12.0-15.0 [facility] Comment on above: Performed By: #### L 100.0100, L500.2500 ####[facility] [address] [place], [address] IG% 0.800 Normal 0.0-0.9 [facility] Comment on above: Result Comment: IG% - Immature Granulocytes (promyelocytes, myelocytes andmetamyelocytes) > 1% indicates that a LEFT SHIFT is Present. Performed By: #### L 100.0100, L500.2500 ####[facility] [address] [place], [address] Lymphocytes/100 WBC (Bld) 4.6 % Low 19-41 [facility] Comment on above: Performed By: #### L 100.0100, L500.2500 ####[facility] [address] [place], [address] MCH (RBC) [Entitic mass] 27.7 pg Normal 27.0-32.0 [facility] Comment on above: Performed By: #### L 100.0100, L500.2500 ####[facility] [address] [place], [address] MCHC (RBC) [Mass/Vol] 32.6 g/dL Normal 32-36 [facility] Comment on above: Performed By: #### L 100.0100, L500.2500 ####[facility] [address] [place], [address] MCV (RBC) [Entitic vol] 84.8 fL Normal 81-99 [facility] Comment on above: Performed By: #### L 100.0100, L500.2500 ####[facility] [address] [place], [address] Monocytes/100 WBC (Bld) 3.9 % Normal 0-10 [facility] Comment on above: Performed By: #### L 100.0100, L500.2500 ####[facility] [address] [place], [address] Neutrophils/100 WBC (Bld) 90.6 % High 47-70 [facility] Comment on above: Performed By: #### L 100.0100, L500.2500 ####[facility] [address] [place], [address] Nucleated RBC (Bld) [#/Vol] 0 10*3/uL Normal 0-5 [facility] Comment on above: Performed By: #### L 100.0100, L500.2500 ####[facility] [address] [place], [address] Platelet mean volume (Bld) [Entitic vol] 10.2 fL Normal 6.2-12.0 [facility] Comment on above: Performed By: #### L 100.0100, L500.2500 ####[facility] [address] [place], [address] Platelets (Bld) [#/Vol] 176 10*3/uL Normal 150-450 [facility] Comment on above: Performed By: #### L 100.0100, L500.2500 ####[facility] [address] [place], [address] RBC (Bld) [#/Vol] 5.13 10*6/uL Normal 4.2-5.[address] [facility] Comment on above: Performed By: #### L 100.0100, L500.2500 ####[facility] [address] [place], [address] RDW SD 40.3 fl Normal 35.1-43.9 [facility] Comment on above: Performed By: #### L 100.0100, L500.2500 ####[facility] [address] [place], [address] WBC (Bld) [#/Vol] 9.7 10*3/uL Normal 4.4-11.0 [facility] Comment on above: Performed By: #### L 100.0100, L500.2500 ####[facility] [address] [place], [address] Basic Metabolic Profile (BMP )on 10-05-2024 BUN/CRE 44.0 RATIO High 10-20 [facility] Comment on above: Performed By: #### L 100.0100, L500.2500 ####[facility] [address] [place], [address] Calcium [Mass/Vol] 8.5 mg/dL Normal 7.6-11.0 [facility] Comment on above: Performed By: #### L 100.0100, L500.2500 ####[facility] [address] [place], [address] Chloride [Moles/Vol] 94 mmol/L Low 98-108 [facility] Comment on above: Performed By: #### L 100.0100, L500.2500 ####[facility] [address] [place], [address] CO2 [Moles/Vol] 36.3 mmol/L High 21.0-32.0 [facility] Comment on above: Performed By: #### L 100.0100, L500.2500 ####[facility] [address] [place], [address] Creatinine [Mass/Vol] 0.52 mg/dL Low 0.70-1.20 [facility] Comment on above: Performed By: #### L 100.0100, L500.2500 ####[facility] [address] [place], [address] ECRCL 64.35 ml/min Normal 50-250 [facility] Comment on above: Performed By: #### L 100.0100, L500.2500 ####[facility] [address] [place], [address] GAP 6 Normal 5-15 [facility] Comment on above: Performed By: #### L 100.0100, L500.2500 ####[facility] [address] [place], [address] GFR/1.73 sq M.predicted among non-blacks MDRD (S/P/Bld) [Vol rate/Area] 101 mL/min/{1.73_m2} Normal >60 [facility] Comment on above: Result Comment: mL/m in/1.73m2 CKD-EPI Creatinine Equation (2020) Performed By: #### L 100.0100, L500.2500 ####[facility] [address] [place], [address] Glucose [Mass/Vol] 130 mg/dL High 70-99 [facility] Comment on above: Performed By: #### L 100.0100, L500.2500 ####[facility] [address] [place], [address] Potassium [Moles/Vol] 4.7 mmol/L Normal 3.3-5.1 [facility] Comment on above: Result Comment: Hemo lysis present, Results??could be affected.?? Performed By: #### L 100.0100, L500.2500 ####[facility] [address] [place], [address] Sodium [Moles/Vol] 137 mmol/L Normal 133-145 [facility] Comment on above: Performed By: #### L 100.0100, L500.2500 ####[facility] [address] [place], [address] Urea nitrogen [Mass/Vol] 23 mg/dL High 4-19 [facility] Comment on above: Performed By: #### L 100.0100, L500.2500 ####[facility] [address] [place], [address] CBC W/Diff, Automatedon -04 27-2024 Absolute Lymph 0.47 X10 3/uL Low 0.83-4.51 [facility] Comment on above: Performed By: #### L 100.0100, L500.2500 ####[facility] [address] [place], [address] Absolute Neut 8.2 X10 3/uL High 2.0-7.7 [facility] Comment on above: Performed By: #### L 100.0100, L500.2500 ####[facility] [address] [place], [address] Basophils/100 WBC (Bld) 0.1 % Normal 0-1 [facility] Comment on above: Performed By: #### L 100.0100, L500.2500 ####[facility] [address] [place], [address] Eosinophils/100 WBC (Bld) 0.0 % Normal 0-5 [facility] Comment on above: Performed By: #### L 100.0100, L500.2500 ####[facility] [address] [place], [address] Erythrocyte distribution width (RBC) [Ratio] 12.9 % Normal 11.6-14.6 [facility] Comment on above: Performed By: #### L 100.0100, L500.2500 ####[facility] [address] [place], [address] Hematocrit (Bld) [Volume fraction] 41.7 % Normal 37-47 [facility] Comment on above: Performed By: #### L 100.0100, L500.2500 ####[facility] [address] [place], [address] Hemoglobin (Bld) [Mass/Vol] 13.7 g/dL Normal 12.0-15.0 [facility] Comment on above: Performed By: #### L 100.0100, L500.2500 ####[facility] [address] [place], [address] IG% 0.600 Normal 0.0-0.9 [facility] Comment on above: Result Comment: IG% - Immature Granulocytes (promyelocytes, myelocytes andmetamyelocytes) > 1% indicates that a LEFT SHIFT is Present. Performed By: #### L 100.0100, L500.2500 ####[facility] [address] [place], [address] Lymphocytes/100 WBC (Bld) 5.2 % Low 19-41 [facility] Comment on above: Performed By: #### L 100.0100, L500.2500 ####[facility] [address] [place], [address] MCH (RBC) [Entitic mass] 28.0 pg Normal 27.0-32.0 [facility] Comment on above: Performed By: #### L 100.0100, L500.2500 ####[facility] [address] [place], [address] MCHC (RBC) [Mass/Vol] 32.9 g/dL Normal 32-36 [facility] Comment on above: Performed By: #### L 100.0100, L500.2500 ####[facility] [address] [place], [address] MCV (RBC) [Entitic vol] 85.3 fL Normal 81-99 [facility] Comment on above: Performed By: #### L 100.0100, L500.2500 ####[facility] [address] [place], [address] Monocytes/100 WBC (Bld) 3.0 % Normal 0-10 [facility] Comment on above: Performed By: #### L 100.0100, L500.2500 ####[facility] [address] [place], [address] Neutrophils/100 WBC (Bld) 91.1 % High 47-70 [facility] Comment on above: Performed By: #### L 100.0100, L500.2500 ####[facility] [address] [place], [address] Nucleated RBC (Bld) [#/Vol] 0 10*3/uL Normal 0-5 [facility] Comment on above: Performed By: #### L 100.0100, L500.2500 ####[facility] [address] [place], [address] Platelet mean volume (Bld) [Entitic vol] 10.6 fL Normal 6.2-12.0 [facility] Comment on above: Performed By: #### L 100.0100, L500.2500 ####[facility] [address] [place], [address] Platelets (Bld) [#/Vol] 172 10*3/uL Normal 150-450 [facility] Comment on above: Performed By: #### L 100.0100, L500.2500 ####[facility] [address] [place], [address] RBC (Bld) [#/Vol] 4.89 10*6/uL Normal 4.2-5.[address] [facility] Comment on above: Performed By: #### L 100.0100, L500.2500 ####[facility] [address] [place], [address] RDW SD 39.9 fl Normal 35.1-43.9 [facility] Comment on above: Performed By: #### L 100.0100, L500.2500 ####[facility] [address] [place], [address] WBC (Bld) [#/Vol] 9.0 10*3/uL Normal 4.4-11.0 [facility] Comment on above: Performed By: #### L 100.0100, L500.2500 ####[facility] [address] [place], [address] Electrocardiogram reportOrde red By: Junito Madrid on 10-05-2024 EKG study [facility] [address] [facility] [place] [place] [address] 12 Lead EKG 10/04/24 1439 MR#: [id number] Acct: [id number] Name: DENIA GONZALEZ Rep #:[id number] : 1955 69 From: Junito contreras MD Attending Dr: Dr. Lynne Schafer MD Status: ADM IN Ordering Dr: Lynne Schafer MD Date: 10/04/24 Location: [facility] Sex: F C Admitted: 09/29/24 Test Reason [...] replaced Atrial fibrillation Confirmed by Junito Madrid ([id number]), design editor LEORA RESTREPO ([id number]) on 10/05/2024 8:34:43 AM Referred By: Confirmed By: Junito Madrid 10/05/24 0834 Date _ Junito Madrid MD CC: Dr. Yoseph Fall MD; Dr. Lynne Schafer MD ~ Signed [facility] Work Phone: 12 Lead EKGon 10-04-2024 12 Lead EKG Normal [facility] Basic Metabolic Profile (BMP )on 10-04-2024 BUN/CRE 36.3 RATIO High 10-20 [facility] Comment on above: Performed By: #### L 100.0100, L500.2500 ####[facility] [address] [place], [address] Calcium [Mass/Vol] 8.7 mg/dL Normal 7.6-11.0 [facility] Comment on above: Performed By: #### L 100.0100, L500.2500 ####[facility] [address] [place], [address] Chloride [Moles/Vol] 94 mmol/L Low 98-108 [facility] Comment on above: Performed By: #### L 100.0100, L500.2500 ####[facility] [address] [place], [address] CO2 [Moles/Vol] 35.4 mmol/L High 21.0-32.0 [facility] Comment on above: Performed By: #### L 100.0100, L500.2500 ####[facility] [address] [place], [address] Creatinine [Mass/Vol] 0.58 mg/dL Low 0.70-1.20 [facility] Comment on above: Performed By: #### L 100.0100, L500.2500 ####[facility] [address] [place], [address] ECRCL 63.56 ml/min Normal 50-250 [facility] Comment on above: Performed By: #### L 100.0100, L500.2500 ####[facility] [address] [place], [address] GAP 8 Normal 5-15 [facility] Comment on above: Performed By: #### L 100.0100, L500.2500 ####[facility] [address] [place], [address] GFR/1.73 sq M.predicted among non-blacks MDRD (S/P/Bld) [Vol rate/Area] 98 mL/min/{1.73_m2} Normal >60 [facility] Comment on above: Result Comment: mL/m in/1.73m2 CKD-EPI Creatinine Equation (2020) Performed By: #### L 100.0100, L500.2500 ####[facility] [address] [place], [address] Glucose [Mass/Vol] 125 mg/dL High 70-99 [facility] Comment on above: Performed By: #### L 100.0100, L500.2500 ####[facility] [address] [place], [address] Potassium [Moles/Vol] 4.6 mmol/L Normal 3.3-5.1 [facility] Comment on above: Performed By: #### L 100.0100, L500.2500 ####[facility] [address] [place], [address] Sodium [Moles/Vol] 137 mmol/L Normal 133-145 [facility] Comment on above: Performed By: #### L 100.0100, L500.2500 ####[facility] [address] [place], [address] Urea nitrogen [Mass/Vol] 21 mg/dL High 4-19 [facility] Comment on above: Performed By: #### L 100.0100, L500.2500 ####[facility] [address] [place], [address] CBC W/Diff, Automatedon 06- Absolute Lymph 0.46 X10 3/uL Low 0.83-4.51 [facility] Comment on above: Performed By: #### L 100.0100, L500.2500 ####[facility] [address] [place], [address] Absolute Neut 6.5 X10 3/uL Normal 2.0-7.7 [facility] Comment on above: Performed By: #### L 100.0100, L500.2500 ####[facility] [address] [place], [address] Basophils/100 WBC (Bld) 0.0 % Normal 0-1 [facility] Comment on above: Performed By: #### L 100.0100, L500.2500 ####[facility] [address] [place], [address] Eosinophils/100 WBC (Bld) 0.0 % Normal 0-5 [facility] Comment on above: Performed By: #### L 100.0100, L500.2500 ####[facility] [address] [place], [address] Erythrocyte distribution width (RBC) [Ratio] 12.9 % Normal 11.6-14.6 [facility] Comment on above: Performed By: #### L 100.0100, L500.2500 ####[facility] [address] [place], [address] Hematocrit (Bld) [Volume fraction] 41.4 % Normal 37-47 [facility] Comment on above: Performed By: #### L 100.0100, L500.2500 ####[facility] [address] [place], [address] Hemoglobin (Bld) [Mass/Vol] 13.9 g/dL Normal 12.0-15.0 [facility] Comment on above: Performed By: #### L 100.0100, L500.2500 ####[facility] [address] [place], [address] IG% 0.600 Normal 0.0-0.9 [facility] Comment on above: Result Comment: IG% - Immature Granulocytes (promyelocytes, myelocytes andmetamyelocytes) > 1% indicates that a LEFT SHIFT is Present. Performed By: #### L 100.0100, L500.2500 ####[facility] [address] [place], [address] Lymphocytes/100 WBC (Bld) 6.4 % Low 19-41 [facility] Comment on above: Performed By: #### L 100.0100, L500.2500 ####[facility] [address] [place], [address] MCH (RBC) [Entitic mass] 28.6 pg Normal 27.0-32.0 [facility] Comment on above: Performed By: #### L 100.0100, L500.2500 ####[facility] [address] [place], [address] MCHC (RBC) [Mass/Vol] 33.6 g/dL Normal 32-36 [facility] Comment on above: Performed By: #### L 100.0100, L500.2500 ####[facility] [address] [place], [address] MCV (RBC) [Entitic vol] 85.2 fL Normal 81-99 [facility] Comment on above: Performed By: #### L 100.0100, L500.2500 ####[facility] [address] [place], [address] Monocytes/100 WBC (Bld) 2.9 % Normal 0-10 [facility] Comment on above: Performed By: #### L 100.0100, L500.2500 ####[facility] [address] [place], [address] Neutrophils/100 WBC (Bld) 90.1 % High 47-70 [facility] Comment on above: Performed By: #### L 100.0100, L500.2500 ####[facility] [address] [place], [address] Nucleated RBC (Bld) [#/Vol] 0 10*3/uL Normal 0-5 [facility] Comment on above: Performed By: #### L 100.0100, L500.2500 ####[facility] [address] [place], [address] Platelet mean volume (Bld) [Entitic vol] 9.9 fL Normal 6.2-12.0 [facility] Comment on above: Performed By: #### L 100.0100, L500.2500 ####[facility] [address] [place], [address] Platelets (Bld) [#/Vol] 160 10*3/uL Normal 150-450 [facility] Comment on above: Performed By: #### L 100.0100, L500.2500 ####[facility] [address] [place], [address] RBC (Bld) [#/Vol] 4.86 10*6/uL Normal 4.2-5.[address] [facility] Comment on above: Performed By: #### L 100.0100, L500.2500 ####[facility] [address] [place], [address] RDW SD 39.8 fl Normal 35.1-43.9 [facility] Comment on above: Performed By: #### L 100.0100, L500.2500 ####[facility] [address] [place], [address] WBC (Bld) [#/Vol] 7.2 10*3/uL Normal 4.4-11.0 [facility] Comment on above: Performed By: #### L 100.0100, L500.2500 ####[facility] [address] [place], [address] Basic Metabolic Profile (BMP )on 10-03-2024 BUN/CRE 34.9 RATIO High 10-20 [facility] Comment on above: Performed By: #### L 506.0400, L500.2500, L100.0100 ####[facility] [address] [place], [address] Calcium [Mass/Vol] 8.8 mg/dL Normal 7.6-11.0 [facility] Comment on above: Performed By: #### L 506.0400, L500.2500, L100.0100 ####[facility] [address] [place], [address] Chloride [Moles/Vol] 93 mmol/L Low 98-108 [facility] Comment on above: Performed By: #### L 506.0400, L500.2500, L100.0100 ####[facility] [address] [place], [address] CO2 [Moles/Vol] 34.0 mmol/L High 21.0-32.0 [facility] Comment on above: Performed By: #### L 506.0400, L500.2500, L100.0100 ####[facility] [address] [place], [address] Creatinine [Mass/Vol] 0.65 mg/dL Low 0.70-1.20 [facility] Comment on above: Performed By: #### L 506.0400, L500.2500, L100.0100 ####[facility] [address] [place], [address] ECRCL 63.56 ml/min Normal 50-250 [facility] Comment on above: Performed By: #### L 506.0400, L500.2500, L100.0100 ####[facility] [address] [place], [address] GAP 9 Normal 5-15 [facility] Comment on above: Performed By: #### L 506.0400, L500.2500, L100.0100 ####[facility] [address] [place], [address] GFR/1.73 sq M.predicted among non-blacks MDRD (S/P/Bld) [Vol rate/Area] 95 mL/min/{1.73_m2} Normal >60 [facility] Comment on above: Result Comment: mL/m in/1.73m2 CKD-EPI Creatinine Equation (2020) Performed By: #### L 506.0400, L500.2500, L100.0100 ####[facility] [address] [place], [address] Glucose [Mass/Vol] 220 mg/dL High 70-99 [facility] Comment on above: Performed By: #### L 506.0400, L500.2500, L100.0100 ####[facility] [address] [place], [address] Potassium [Moles/Vol] 4.4 mmol/L Normal 3.3-5.1 [facility] Comment on above: Performed By: #### L 506.0400, L500.2500, L100.0100 ####[facility] [address] [place], [address] Sodium [Moles/Vol] 135 mmol/L Normal 133-145 [facility] Comment on above: Performed By: #### L 506.0400, L500.2500, L100.0100 ####[facility] [address] [place], [address] Urea nitrogen [Mass/Vol] 23 mg/dL High 4-19 [facility] Comment on above: Performed By: #### L 506.0400, L500.2500, L100.0100 ####[facility] [address] [place], [address] CBC W/Diff, Automatedon 06-1 0-2025 Absolute Lymph 0.48 X10 3/uL Low 0.83-4.51 [facility] Comment on above: Performed By: #### L 506.0400, L500.2500, L100.0100 ####[facility] [address] [place], [address] Absolute Neut 8.5 X10 3/uL High 2.0-7.7 [facility] Comment on above: Performed By: #### L 506.0400, L500.2500, L100.0100 ####[facility] [address] [place], [address] Basophils/100 WBC (Bld) 0.1 % Normal 0-1 [facility] Comment on above: Performed By: #### L 506.0400, L500.2500, L100.0100 ####[facility] [address] [place], [address] Eosinophils/100 WBC (Bld) 0.0 % Normal 0-5 [facility] Comment on above: Performed By: #### L 506.0400, L500.2500, L100.0100 ####[facility] [address] [place], [address] Erythrocyte distribution width (RBC) [Ratio] 13.1 % Normal 11.6-14.6 [facility] Comment on above: Performed By: #### L 506.0400, L500.2500, L100.0100 ####[facility] [address] [place], [address] Hematocrit (Bld) [Volume fraction] 41.4 % Normal 37-47 [facility] Comment on above: Performed By: #### L 506.0400, L500.2500, L100.0100 ####[facility] [address] [place], [address] Hemoglobin (Bld) [Mass/Vol] 13.6 g/dL Normal 12.0-15.0 [facility] Comment on above: Performed By: #### L 506.0400, L500.2500, L100.0100 ####[facility] [address] [place], [address] IG% 0.300 Normal 0.0-0.9 [facility] Comment on above: Result Comment: IG% - Immature Granulocytes (promyelocytes, myelocytes andmetamyelocytes) > 1% indicates that a LEFT SHIFT is Present. Performed By: #### L 506.0400, L500.2500, L100.0100 ####[facility] [address] [place], [address] Lymphocytes/100 WBC (Bld) 5.2 % Low 19-41 [facility] Comment on above: Performed By: #### L 506.0400, L500.2500, L100.0100 ####[facility] [address] [place], [address] MCH (RBC) [Entitic mass] 28.2 pg Normal 27.0-32.0 [facility] Comment on above: Performed By: #### L 506.0400, L500.2500, L100.0100 ####[facility] [address] [place], [address] MCHC (RBC) [Mass/Vol] 32.9 g/dL Normal 32-36 [facility] Comment on above: Performed By: #### L 506.0400, L500.2500, L100.0100 ####[facility] [address] [place], [address] MCV (RBC) [Entitic vol] 85.7 fL Normal 81-99 [facility] Comment on above: Performed By: #### L 506.0400, L500.2500, L100.0100 ####[facility] [address] [place], [address] Monocytes/100 WBC (Bld) 1.2 % Normal 0-10 [facility] Comment on above: Performed By: #### L 506.0400, L500.2500, L100.0100 ####[facility] [address] [place], [address] Neutrophils/100 WBC (Bld) 93.2 % High 47-70 [facility] Comment on above: Performed By: #### L 506.0400, L500.2500, L100.0100 ####[facility] [address] [place], [address] Nucleated RBC (Bld) [#/Vol] 0 10*3/uL Normal 0-5 [facility] Comment on above: Performed By: #### L 506.0400, L500.2500, L100.0100 ####[facility] [address] [place], [address] Platelet mean volume (Bld) [Entitic vol] 10.2 fL Normal 6.2-12.0 [facility] Comment on above: Performed By: #### L 506.0400, L500.2500, L100.0100 ####[facility] [address] [place], [address] Platelets (Bld) [#/Vol] 184 10*3/uL Normal 150-450 [facility] Comment on above: Performed By: #### L 506.0400, L500.2500, L100.0100 ####[facility] [address] [place], [address] RBC (Bld) [#/Vol] 4.83 10*6/uL Normal 4.2-5.[address] [facility] Comment on above: Performed By: #### L 506.0400, L500.2500, L100.0100 ####[facility] [address] [place], [address] RDW SD 40.3 fl Normal 35.1-43.9 [facility] Comment on above: Performed By: #### L 506.0400, L500.2500, L100.0100 ####[facility] [address] [place], [address] WBC (Bld) [#/Vol] 9.2 10*3/uL Normal 4.4-11.0 [facility] Comment on above: Performed By: #### L 506.0400, L500.2500, L100.0100 ####[facility] [address] [place], [address] Electrocardiogram reportOrde red By: Junito Madrid on 10-03-2024 EKG study [facility] Cardi[facility] Services [address] [place] [address] 12 Lead EKG 10/02/24 1903 MR#: [id number] Acct: [id number] Name: DENIA GONZALEZ Rep #:[id number] : 1955 69 From: Junito contreras MD Attending Dr: Dr. Lynne Schafer MD Status: ADM IN Ordering Dr: Junito Madrid MD Date: 10/02/24 Location: [facility] Sex: F C Admitted: 09/29/24 Test Reason [...] was found Confirmed by Junito Madrid ([id number]), design editor LEORA RESTREPO ([id number]) on 10/03/2024 11:08:49 AM Referred By: Confirmed By: Junito Madrid 10/03/24 1108 Date _ Junito Madrid MD CC: Dr. Yoseph Fall MD; Dr. Junito Madrid MD; Dr. Lynne Schafer MD ~ Signed [facility] Work Phone: Respiratory Cultureon 2024 RESPC Normal [facility] Comment on above: Performed By: #### M 100.2400, M100.2000 ####[facility] [address] [place], [address] T4 Free Directon 10-03-2024 T4 FREE DIRECT 1.20 ng/dL Normal 0.76-1.46 [facility] Comment on above: Performed By: #### L 506.0400, L500.2500, L100.0100 ####[facility] [address] [place], [address] T4 freeOrdered By: Lynne soliz on 10-03-2024 Free T4 [Mass/Vol] 1.20 ng/dL 0.76-1.46 [facility] 12 Lead EKGon 10-02-2024 12 Lead EKG Normal [facility] 12 Lead EKG Normal [facility] Basic Metabolic Profile (BMP )on 10-02-2024 BUN/CRE 42.5 RATIO High 10-20 [facility] Comment on above: Performed By: #### L 100.0100, L500.2500 ####[facility] [address] [place], [address] Calcium [Mass/Vol] 8.9 mg/dL Normal 7.6-11.0 [facility] Comment on above: Performed By: #### L 100.0100, L500.2500 ####[facility] [address] [place], [address] Chloride [Moles/Vol] 95 mmol/L Low 98-108 [facility] Comment on above: Performed By: #### L 100.0100, L500.2500 ####[facility] [address] [place], [address] CO2 [Moles/Vol] 34.5 mmol/L High 21.0-32.0 [facility] Comment on above: Performed By: #### L 100.0100, L500.2500 ####[facility] [address] [place], [address] Creatinine [Mass/Vol] 0.55 mg/dL Low 0.70-1.20 [facility] Comment on above: Performed By: #### L 100.0100, L500.2500 ####[facility] [address] [place], [address] ECRCL 63.64 ml/min Normal 50-250 [facility] Comment on above: Performed By: #### L 100.0100, L500.2500 ####[facility] [address] [place], [address] GAP 9 Normal 5-15 [facility] Comment on above: Performed By: #### L 100.0100, L500.2500 ####[facility] [address] [place], [address] GFR/1.73 sq M.predicted among non-blacks MDRD (S/P/Bld) [Vol rate/Area] 99 mL/min/{1.73_m2} Normal >60 [facility] Comment on above: Result Comment: mL/m in/1.73m2 CKD-EPI Creatinine Equation (2020) Performed By: #### L 100.0100, L500.2500 ####[facility] [address] [place], [address] Glucose [Mass/Vol] 113 mg/dL High 70-99 [facility] Comment on above: Performed By: #### L 100.0100, L500.2500 ####[facility] [address] [place], [address] Potassium [Moles/Vol] 4.4 mmol/L Normal 3.3-5.1 [facility] Comment on above: Performed By: #### L 100.0100, L500.2500 ####[facility] [address] [place], [address] Sodium [Moles/Vol] 138 mmol/L Normal 133-145 [facility] Comment on above: Performed By: #### L 100.0100, L500.2500 ####[facility] [address] [place], [address] Urea nitrogen [Mass/Vol] 23 mg/dL High 4-19 [facility] Comment on above: Performed By: #### L 100.0100, L500.2500 ####[facility] [address] [place], [address] CBC W/Diff, Automatedon 06-0 9-2024 Absolute Lymph 0.50 X10 3/uL Low 0.83-4.51 [facility] Comment on above: Performed By: #### L 100.0100, L500.2500 ####[facility] [address] [place], [address] Absolute Neut 7.3 X10 3/uL Normal 2.0-7.7 [facility] Comment on above: Performed By: #### L 100.0100, L500.2500 ####[facility] [address] [place], [address] Basophils/100 WBC (Bld) 0.1 % Normal 0-1 [facility] Comment on above: Performed By: #### L 100.0100, L500.2500 ####[facility] [address] [place], [address] Eosinophils/100 WBC (Bld) 0.0 % Normal 0-5 [facility] Comment on above: Performed By: #### L 100.0100, L500.2500 ####[facility] [address] [place], [address] Erythrocyte distribution width (RBC) [Ratio] 13.1 % Normal 11.6-14.6 [facility] Comment on above: Performed By: #### L 100.0100, L500.2500 ####[facility] [address] [place], [address] Hematocrit (Bld) [Volume fraction] 40.4 % Normal 37-47 [facility] Comment on above: Performed By: #### L 100.0100, L500.2500 ####[facility] [address] [place], [address] Hemoglobin (Bld) [Mass/Vol] 13.4 g/dL Normal 12.0-15.0 [facility] Comment on above: Performed By: #### L 100.0100, L500.2500 ####[facility] [address] [place], [address] IG% 0.700 Normal 0.0-0.9 [facility] Comment on above: Result Comment: IG% - Immature Granulocytes (promyelocytes, myelocytes andmetamyelocytes) > 1% indicates that a LEFT SHIFT is Present. Performed By: #### L 100.0100, L500.2500 ####[facility] [address] [place], [address] Lymphocytes/100 WBC (Bld) 6.1 % Low 19-41 [facility] Comment on above: Performed By: #### L 100.0100, L500.2500 ####[facility] [address] [place], [address] MCH (RBC) [Entitic mass] 27.9 pg Normal 27.0-32.0 [facility] Comment on above: Performed By: #### L 100.0100, L500.2500 ####[facility] [address] [place], [address] MCHC (RBC) [Mass/Vol] 33.2 g/dL Normal 32-36 [facility] Comment on above: Performed By: #### L 100.0100, L500.2500 ####[facility] [address] [place], [address] MCV (RBC) [Entitic vol] 84.0 fL Normal 81-99 [facility] Comment on above: Performed By: #### L 100.0100, L500.2500 ####[facility] [address] [place], [address] Monocytes/100 WBC (Bld) 3.3 % Normal 0-10 [facility] Comment on above: Performed By: #### L 100.0100, L500.2500 ####[facility] [address] [place], [address] Neutrophils/100 WBC (Bld) 89.8 % High 47-70 [facility] Comment on above: Performed By: #### L 100.0100, L500.2500 ####[facility] [address] [place], [address] Nucleated RBC (Bld) [#/Vol] 0 10*3/uL Normal 0-5 [facility] Comment on above: Performed By: #### L 100.0100, L500.2500 ####[facility] [address] [place], [address] Platelet mean volume (Bld) [Entitic vol] 9.7 fL Normal 6.2-12.0 [facility] Comment on above: Performed By: #### L 100.0100, L500.2500 ####[facility] [address] [place], [address] Platelets (Bld) [#/Vol] 172 10*3/uL Normal 150-450 [facility] Comment on above: Performed By: #### L 100.0100, L500.2500 ####[facility] [address] [place], [address] RBC (Bld) [#/Vol] 4.81 10*6/uL Normal 4.2-5.[address] [facility] Comment on above: Performed By: #### L 100.0100, L500.2500 ####[facility] [address] [place], [address] RDW SD 39.8 fl Normal 35.1-43.9 [facility] Comment on above: Performed By: #### L 100.0100, L500.2500 ####[facility] [address] [place], [address] WBC (Bld) [#/Vol] 8.2 10*3/uL Normal 4.4-11.0 [facility] Comment on above: Performed By: #### L 100.0100, L500.2500 ####[facility] [address] [place], [address] Consultation - Cardiologyon 10-02-2024 Consultation - Cardiology Normal [facility] Echo Completeon 10-02-2024 Echo Complete Normal [facility] Echocardiogram study reportO rdered By: Dillon Lopez on 10-02-2024 Study report [facility] [address] [place] [address] Echo Complete 10/02/24 1337 MR#: [id number] Acct: [id number] Name: DENIA GONZALEZ Rep #:[id number] : 1955 69 From: Dillon Lopez MD Attending Dr: Dr. Lynne Schafer MD Status: ADM IN Ordering Dr: Lynne Schafer MD Date: 10/02/24 Location: [facility] Sex: F C Admitted: 09/29/24 Reason For [...] ml SI(MOD-sp4): 7.9 ml/m2 SI(MOD-sp2): 13.7 ml/m2 _ Ao sinus diam: 3.3 cm LA A4 [...] By: Saray Torrez RDCS 10/02/24 1424 Date _ Dillon Lopez MD CC: Dr. Yoseph Fall MD; Dr. Lynne Schafer MD ~ Date Dictated: 10/02/24 1337 Date Transcribed: 10/02/24 1424 [employer] Supervisor: Signed [facility] Work Phone: Electrocardiogram reportOrde red By: Junito Madrid on 10-02-2024 EKG study [facility] Cardiovascular Services [address] [place] [address] 12 Lead EKG 10/02/24 0905 MR#: [id number] Acct: [id number] Name: DENIA GONZALEZ Rep #:[id number] : 1955 69 From: Junito contreras MD Attending Dr: Dr. Lynne Schafer MD Status: ADM IN Ordering Dr: Lynne Schafer MD Date: 10/02/24 Location: [facility] Sex: F C Admitted: 09/29/24 Test Reason [...] DATA IS UNCONFIRMED Confirmed by Junito Madrid ([id number]), design editor LEORA RESTREPO ([id number]) on 10/02/2024 10:43:05 AM Referred By: Confirmed By: Junito Madrid 10/02/24 1043 Date _ Junito Madrid MD CC: Dr. Yoseph Fall MD; Dr. Lynne Schafer MD ~ Signed [facility] Work Phone: Gram Stainon 10-02-2024 GS Acceptable Specimen? Yes (<25 Epithelial cells per/lpf) Gram Stain 2+ Gram positive cocci 2+ Gram positive rods 2+ Gram negative rods Normal [facility] Comment on above: Performed By: #### M 100.2400, M100.2000 ####[facility] [address] [place], [address] L499.0042on 10-02-2024 Trop T High Sen 23 ng/L High <=14 [facility] Comment on above: Performed By: #### L 499.0042 ####[facility] [address] [place], [address] L499.0043on 10-02-2024 Trop T High Sen 24 ng/L High <=14 [facility] Comment on above: Performed By: #### L 499.0043 ####[facility] [address] [place], [address] L501.4021on 10-02-2024 Trop T High Sen 23 ng/L High <=14 [facility] Comment on above: Performed By: #### L 501.4021 ####[facility] [address] [place], [address] Magnesiumon 10-02-2024 Magnesium [Mass/Vol] 2.1 mg/dL Normal 1.5-2.2 [facility] Comment on above: Performed By: #### L 501.9520, L501.5200 ####[facility] [address] [place], [address] TSH DL <= 0.005 mIU/L QnOrde red By: Lynne Schafer on 10-02-2024 TSH Qn 0.281 uIU/mL Low 0.300-4.200 [facility] Thyroid Stim Hormone (TSH)on 10-02-2024 TSH 0.281 uIU/mL Low 0.300-4.200 [facility] Comment on above: Performed By: #### L 501.9520, L501.5200 ####[facility] [address] [place], [address] Troponin T.cardiac [Mass/vol ume] in Serum or Plasma by High sensitivity methodOrdered By: Lynne Schafer on 10-02-2024 Troponin T.cardiac High sensitivity method [Mass/Vol] 24 ng/L High <14 [facility] Troponin T.cardiac High sensitivity method [Mass/Vol] 23 ng/L High <14 [facility] Troponin T.cardiac High sensitivity method [Mass/Vol] 23 ng/L High <14 [facility] Basic Metabolic Profile (BMP )on 10-01-2024 BUN/CRE 35.9 RATIO High 10-20 [facility] Comment on above: Performed By: #### L 100.0100, L500.2500 ####[facility] [address] [place], [address] Calcium [Mass/Vol] 9.2 mg/dL Normal 7.6-11.0 [facility] Comment on above: Performed By: #### L 100.0100, L500.2500 ####[facility] [address] [place], [address] Chloride [Moles/Vol] 94 mmol/L Low 98-108 [facility] Comment on above: Performed By: #### L 100.0100, L500.2500 ####[facility] [address] [place], [address] CO2 [Moles/Vol] 34.2 mmol/L High 21.0-32.0 [facility] Comment on above: Performed By: #### L 100.0100, L500.2500 ####[facility] [address] [place], [address] Creatinine [Mass/Vol] 0.59 mg/dL Low 0.70-1.20 [facility] Comment on above: Performed By: #### L 100.0100, L500.2500 ####[facility] [address] [place], [address] ECRCL 65.06 ml/min Normal 50-250 [facility] Comment on above: Performed By: #### L 100.0100, L500.2500 ####[facility] [address] [place], [address] GAP 10 Normal 5-15 [facility] Comment on above: Performed By: #### L 100.0100, L500.2500 ####[facility] [address] [place], [address] GFR/1.73 sq M.predicted among non-blacks MDRD (S/P/Bld) [Vol rate/Area] 97 mL/min/{1.73_m2} Normal >60 [facility] Comment on above: Result Comment: mL/m in/1.73m2 CKD-EPI Creatinine Equation (2020) Performed By: #### L 100.0100, L500.2500 ####[facility] [address] [place], [address] Glucose [Mass/Vol] 111 mg/dL High 70-99 [facility] Comment on above: Performed By: #### L 100.0100, L500.2500 ####[facility] [address] [place], [address] Potassium [Moles/Vol] 4.1 mmol/L Normal 3.3-5.1 [facility] Comment on above: Performed By: #### L 100.0100, L500.2500 ####[facility] [address] [place], [address] Sodium [Moles/Vol] 138 mmol/L Normal 133-145 [facility] Comment on above: Performed By: #### L 100.0100, L500.2500 ####[facility] [address] [place], [address] Urea nitrogen [Mass/Vol] 21 mg/dL High 4-19 [facility] Comment on above: Performed By: #### L 100.0100, L500.2500 ####[facility] [address] [place], [address] CBC W/Diff, Automatedon 06-0 8-5 Absolute Lymph 0.58 X10 3/uL Low 0.83-4.51 [facility] Comment on above: Performed By: #### L 100.0100, L500.2500 ####[facility] [address] [place], [address] Absolute Neut 7.6 X10 3/uL Normal 2.0-7.7 [facility] Comment on above: Performed By: #### L 100.0100, L500.2500 ####[facility] [address] [place], [address] Basophils/100 WBC (Bld) 0.1 % Normal 0-1 [facility] Comment on above: Performed By: #### L 100.0100, L500.2500 ####[facility] [address] [place], [address] Eosinophils/100 WBC (Bld) 0.0 % Normal 0-5 [facility] Comment on above: Performed By: #### L 100.0100, L500.2500 ####[facility] [address] [place], [address] Erythrocyte distribution width (RBC) [Ratio] 12.9 % Normal 11.6-14.6 [facility] Comment on above: Performed By: #### L 100.0100, L500.2500 ####[facility] [address] [place], [address] Hematocrit (Bld) [Volume fraction] 40.9 % Normal 37-47 [facility] Comment on above: Performed By: #### L 100.0100, L500.2500 ####[facility] [address] [place], [address] Hemoglobin (Bld) [Mass/Vol] 13.5 g/dL Normal 12.0-15.0 [facility] Comment on above: Performed By: #### L 100.0100, L500.2500 ####[facility] [address] [place], [address] IG% 0.500 Normal 0.0-0.9 [facility] Comment on above: Result Comment: IG% - Immature Granulocytes (promyelocytes, myelocytes andmetamyelocytes) > 1% indicates that a LEFT SHIFT is Present. Performed By: #### L 100.0100, L500.2500 ####[facility] [address] [place], [address] Lymphocytes/100 WBC (Bld) 6.8 % Low 19-41 [facility] Comment on above: Performed By: #### L 100.0100, L500.2500 ####[facility] [address] [place], [address] MCH (RBC) [Entitic mass] 27.6 pg Normal 27.0-32.0 [facility] Comment on above: Performed By: #### L 100.0100, L500.2500 ####[facility] [address] [place], [address] MCHC (RBC) [Mass/Vol] 33.0 g/dL Normal 32-36 [facility] Comment on above: Performed By: #### L 100.0100, L500.2500 ####[facility] [address] [place], [address] MCV (RBC) [Entitic vol] 83.5 fL Normal 81-99 [facility] Comment on above: Performed By: #### L 100.0100, L500.2500 ####[facility] [address] [place], [address] Monocytes/100 WBC (Bld) 3.6 % Normal 0-10 [facility] Comment on above: Performed By: #### L 100.0100, L500.2500 ####[facility] [address] [place], [address] Neutrophils/100 WBC (Bld) 89.0 % High 47-70 [facility] Comment on above: Performed By: #### L 100.0100, L500.2500 ####[facility] [address] [place], [address] Nucleated RBC (Bld) [#/Vol] 0 10*3/uL Normal 0-5 [facility] Comment on above: Performed By: #### L 100.0100, L500.2500 ####[facility] [address] [place], [address] Platelet mean volume (Bld) [Entitic vol] 9.8 fL Normal 6.2-12.0 [facility] Comment on above: Performed By: #### L 100.0100, L500.2500 ####[facility] [address] [place], [address] Platelets (Bld) [#/Vol] 176 10*3/uL Normal 150-450 [facility] Comment on above: Performed By: #### L 100.0100, L500.2500 ####[facility] [address] [place], [address] RBC (Bld) [#/Vol] 4.90 10*6/uL Normal 4.2-5.[address] [facility] Comment on above: Performed By: #### L 100.0100, L500.2500 ####[facility] [address] [place], [address] RDW SD 39.2 fl Normal 35.1-43.9 [facility] Comment on above: Performed By: #### L 100.0100, L500.2500 ####[facility] [address] [place], [address] WBC (Bld) [#/Vol] 8.5 10*3/uL Normal 4.4-11.0 [facility] Comment on above: Performed By: #### L 100.0100, L500.2500 ####[facility] [address] [place], [address] Bilirubin, totalOrdered By: Dionne Porter on 09-30-2024 Bilirubin [Mass/Vol] 0.27 mg/dL Normal 0.00-1.30 [facility] Comment on above: Performed By: #### L 100.0100, L500.4050 ####[facility] [address] [place], [address] CBC W/Diff, Automatedon Absolute Lymph 0.61 X10 3/uL Low 0.83-4.51 [facility] Comment on above: Performed By: #### L 100.0100, L500.4050 ####[facility] [address] [place], [address] Absolute Neut 6.8 X10 3/uL Normal 2.0-7.7 [facility] Comment on above: Performed By: #### L 100.0100, L500.4050 ####[facility] [address] [place], [address] Basophils/100 WBC (Bld) 0.0 % Normal 0-1 [facility] Comment on above: Performed By: #### L 100.0100, L500.4050 ####[facility] [address] [place], [address] Eosinophils/100 WBC (Bld) 0.0 % Normal 0-5 [facility] Comment on above: Performed By: #### L 100.0100, L500.4050 ####[facility] [address] [place], [address] Erythrocyte distribution width (RBC) [Ratio] 13.0 % Normal 11.6-14.6 [facility] Comment on above: Performed By: #### L 100.0100, L500.4050 ####[facility] [address] [place], [address] Hematocrit (Bld) [Volume fraction] 38.4 % Normal 37-47 [facility] Comment on above: Performed By: #### L 100.0100, L500.4050 ####[facility] [address] [place], [address] Hemoglobin (Bld) [Mass/Vol] 12.6 g/dL Normal 12.0-15.0 [facility] Comment on above: Performed By: #### L 100.0100, L500.4050 ####[facility] [address] [place], [address] IG% 0.400 Normal 0.0-0.9 [facility] Comment on above: Result Comment: IG% - Immature Granulocytes (promyelocytes, myelocytes andmetamyelocytes) > 1% indicates that a LEFT SHIFT is Present. Performed By: #### L 100.0100, L500.4050 ####[facility] [address] [place], [address] Lymphocytes/100 WBC (Bld) 8.0 % Low 19-41 [facility] Comment on above: Performed By: #### L 100.0100, L500.4050 ####[facility] [address] [place], [address] MCH (RBC) [Entitic mass] 27.9 pg Normal 27.0-32.0 [facility] Comment on above: Performed By: #### L 100.0100, L500.4050 ####[facility] [address] [place], [address] MCHC (RBC) [Mass/Vol] 32.8 g/dL Normal 32-36 [facility] Comment on above: Performed By: #### L 100.0100, L500.4050 ####[facility] [address] [place], [address] MCV (RBC) [Entitic vol] 85.0 fL Normal 81-99 [facility] Comment on above: Performed By: #### L 100.0100, L500.4050 ####[facility] [address] [place], [address] Monocytes/100 WBC (Bld) 3.5 % Normal 0-10 [facility] Comment on above: Performed By: #### L 100.0100, L500.4050 ####[facility] [address] [place], [address] Neutrophils/100 WBC (Bld) 88.1 % High 47-70 [facility] Comment on above: Performed By: #### L 100.0100, L500.4050 ####[facility] [address] [place], [address] Nucleated RBC (Bld) [#/Vol] 0 10*3/uL Normal 0-5 [facility] Comment on above: Performed By: #### L 100.0100, L500.4050 ####[facility] [address] [place], [address] Platelet mean volume (Bld) [Entitic vol] 10.0 fL Normal 6.2-12.0 [facility] Comment on above: Performed By: #### L 100.0100, L500.4050 ####[facility] [address] [place], [address] Platelets (Bld) [#/Vol] 177 10*3/uL Normal 150-450 [facility] Comment on above: Performed By: #### L 100.0100, L500.4050 ####[facility] [address] [place], [address] RBC (Bld) [#/Vol] 4.52 10*6/uL Normal 4.2-5.[address] [facility] Comment on above: Performed By: #### L 100.0100, L500.4050 ####[facility] [address] [place], [address] RDW SD 39.9 fl Normal 35.1-43.9 [facility] Comment on above: Performed By: #### L 100.0100, L500.4050 ####[facility] [address] [place], [address] WBC (Bld) [#/Vol] 7.7 10*3/uL Normal 4.4-11.0 [facility] Comment on above: Performed By: #### L 100.0100, L500.4050 ####[facility] [address] [place], [address] Comprehensive Metabolic Prof ilon 09-30-2024 ALK PHOS 60 U/L Normal 35-104 [facility] Comment on above: Performed By: #### L 100.0100, L500.4050 ####[facility] [address] [place], [address] BUN/CRE 32.5 RATIO High 10-20 [facility] Comment on above: Performed By: #### L 100.0100, L500.4050 ####[facility] [address] [place], [address] Calcium [Mass/Vol] 9.0 mg/dL Normal 7.6-11.0 [facility] Comment on above: Performed By: #### L 100.0100, L500.4050 ####[facility] [address] [place], [address] Chloride [Moles/Vol] 95 mmol/L Low 98-108 [facility] Comment on above: Performed By: #### L 100.0100, L500.4050 ####[facility] [address] [place], [address] CO2 [Moles/Vol] 33.3 mmol/L High 21.0-32.0 [facility] Comment on above: Performed By: #### L 100.0100, L500.4050 ####[facility] [address] [place], [address] Creatinine [Mass/Vol] 0.58 mg/dL Low 0.70-1.20 [facility] Comment on above: Performed By: #### L 100.0100, L500.4050 ####[facility] [address] [place], [address] ECRCL 65.06 ml/min Normal 50-250 [facility] Comment on above: Performed By: #### L 100.0100, L500.4050 ####[facility] [address] [place], [address] GAP 10 Normal 5-15 [facility] Comment on above: Performed By: #### L 100.0100, L500.4050 ####[facility] [address] [place], [address] GFR/1.73 sq M.predicted among non-blacks MDRD (S/P/Bld) [Vol rate/Area] 98 mL/min/{1.73_m2} Normal >60 [facility] Comment on above: Result Comment: mL/m in/1.73m2 CKD-EPI Creatinine Equation (2020) Performed By: #### L 100.0100, L500.4050 ####[facility] [address] [place], [address] Glucose [Mass/Vol] 127 mg/dL High 70-99 [facility] Comment on above: Performed By: #### L 100.0100, L500.4050 ####[facility] [address] [place], [address] Potassium [Moles/Vol] 4.6 mmol/L Normal 3.3-5.1 [facility] Comment on above: Result Comment: Hemo lysis present, Results??could be affected.?? Performed By: #### L 100.0100, L500.4050 ####[facility] [address] [place], [address] Sodium [Moles/Vol] 138 mmol/L Normal 133-145 [facility] Comment on above: Performed By: #### L 100.0100, L500.4050 ####[facility] [address] [place], [address] T PROT 6.3 g/dL Normal 5.9-8.4 [facility] Comment on above: Performed By: #### L 100.0100, L500.4050 ####[facility] [address] [place], [address] Urea nitrogen [Mass/Vol] 19 mg/dL Normal 4-19 [facility] Comment on above: Performed By: #### L 100.0100, L500.4050 ####[facility] [address] [place], [address] Comprehensive Metabolic Prof ilOrdered By: Dionne Porter on 09-30-2024 AST [Catalytic activity/Vol] 17 U/L Normal <=31 [facility] Comment on above: Hemolysis present, R esults could be affected. Result Comment: Hemo lysis present, Results??could be affected.?? Performed By: #### L 100.0100, L500.4050 ####[facility] [address] [place], [address] Serum globulin measurementOr dered By: Dionne Porter on 09-30-2024 Globulin (S) [Mass/Vol] 2.5 g/dL Normal 2.2-4.2 [facility] Comment on above: Performed By: #### L 100.0100, L500.4050 ####[facility] [address] [place], [address] Serum or plasma alanine retana otransferase (ALT) measurementOrdered By: Dionne Porter on 09-30-2024 ALT [Catalytic activity/Vol] 9 U/L Normal <=34 [facility] Comment on above: Performed By: #### L 100.0100, L500.4050 ####[facility] [address] [place], [address] Serum or plasma albumin kadi urement (mass/volume)Ordered By: Dionne Porter on 09-30-2024 Albumin [Mass/Vol] 3.8 g/dL Normal 3.4-4.8 [facility] Comment on above: Performed By: #### L 100.0100, L500.4050 ####[facility] [address] [place], [address] Serum or plasma albumin/glob ulin mass ratioOrdered By: Dionne Porter on 09-30-2024 Albumin/Globulin [Mass ratio] 1.5 {ratio} Normal 0.9-2.4 [facility] Comment on above: Performed By: #### L 100.0100, L500.4050 ####[facility] [address] [place], [address] Serum or plasma alkaline renetta sphatase measurementOrdered By: Dionne Porter on 09-30-2024 ALP [Catalytic activity/Vol] 60 U/L 35-104 [facility] Total proteinOrdered By: Arthur Porter on 09-30-2024 Protein [Mass/Vol] 6.3 g/dL 5.9-8.4 [facility] Absolute lymphocyte countOrd ered By: Riley Jeff on 09-29-2024 Lymphocytes Auto (Unsp spec) [#/Vol] 1.40 10*3/uL 0.83-4.51 [facility] Absolute neutrophil countOrd ered By: Riley Jeff on 09-29-2024 Neutrophils (Bld) [#/Vol] 8.4 10*3/uL High 2.0-7.7 [facility] Anion gap in Serum or Plasma Ordered By: Riley Jeff on 09-29-2024 Anion gap [Moles/Vol] 10 mmol/L 5-15 [facility] Assessment of wrist artery p atency prior to arterial punctureOrdered By: Riley Jeff on 09-29-2024 Arterial patency Wrist artery --pre arterial puncture Positive [facility] Automated lymphocyte count a s percentage of total leukocytesOrdered By: Riley Jeff on 09-29-2024 Lymphocytes/100 WBC Auto (Unsp spec) 13.2 % Low 19-41 [facility] BUN/creatinine ratioOrdered By: Riley Jeff on 09-29-2024 Urea nitrogen/Creatinine [Mass ratio] 25.5 mg/mg High 10-20 [facility] Basic Metabolic Profile (BMP )on 09-29-2024 BUN/CRE 25.5 RATIO High 10-20 [facility] Comment on above: Performed By: #### L 501.5200, L500.2500, L503.7505 ####[facility] [address] [place], [address] Calcium [Mass/Vol] 8.9 mg/dL Normal 7.6-11.0 [facility] Comment on above: Performed By: #### L 501.5200, L500.2500, L503.7505 ####[facility] [address] [place], [address] Chloride [Moles/Vol] 93 mmol/L Low 98-108 [facility] Comment on above: Performed By: #### L 501.5200, L500.2500, L503.7505 ####[facility] [address] [place], [address] CO2 [Moles/Vol] 33.1 mmol/L High 21.0-32.0 [facility] Comment on above: Performed By: #### L 501.5200, L500.2500, L503.7505 ####[facility] [address] [place], [address] Creatinine [Mass/Vol] 0.70 mg/dL Normal 0.70-1.20 [facility] Comment on above: Performed By: #### L 501.5200, L500.2500, L503.7505 ####[facility] [address] [place], [address] ECRCL 64.35 ml/min Normal 50-250 [facility] Comment on above: Performed By: #### L 501.5200, L500.2500, L503.7505 ####[facility] [address] [place], [address] GAP 10 Normal 5-15 [facility] Comment on above: Performed By: #### L 501.5200, L500.2500, L503.7505 ####[facility] [address] [place], [address] GFR/1.73 sq M.predicted among non-blacks MDRD (S/P/Bld) [Vol rate/Area] 94 mL/min/{1.73_m2} Normal >60 [facility] Comment on above: Result Comment: mL/m in/1.73m2 CKD-EPI Creatinine Equation (2020) Performed By: #### L 501.5200, L500.2500, L503.7505 ####[facility] [address] [place], [address] Glucose [Mass/Vol] 129 mg/dL High 70-99 [facility] Comment on above: Performed By: #### L 501.5200, L500.2500, L503.7505 ####[facility] [address] [place], [address] Potassium [Moles/Vol] 4.4 mmol/L Normal 3.3-5.1 [facility] Comment on above: Performed By: #### L 501.5200, L500.2500, L503.7505 ####[facility] [address] [place], [address] Sodium [Moles/Vol] 136 mmol/L Normal 133-145 [facility] Comment on above: Performed By: #### L 501.5200, L500.2500, L503.7505 ####[facility] [address] [place], [address] Urea nitrogen [Mass/Vol] 18 mg/dL Normal 4-19 [facility] Comment on above: Performed By: #### L 501.5200, L500.2500, L503.7505 ####[facility] [address] [place], [address] Basophil percentageOrdered B y: Riley Jeff on 09-29-2024 Basophils/100 WBC (Bld) 0.2 % 0-1 [facility] CH[facility] TEST Positive Normal [facility] Comment on above: Performed By: #### L 9000.0800 ####[facility] [address] [place], [address] Base excess Calc (Bld) [Moles/Vol] 19 mmol/L High -2 to +2 [facility] Comment on above: Performed By: #### L 9000.0800 ####[facility] [address] [place], [address] Blood Gas Type ART Normal [facility] Comment on above: Performed By: #### L 9000.0800 ####[facility] [address] [place], [address] CO2 [Moles/Vol] 47 mmol/L Normal [facility] Comment on above: Performed By: #### L 9000.0800 ####[facility] [address] [place], [address] FI02 3.0 Normal [facility] Comment on above: Performed By: #### L 0.0800 ####[facility] [address] [place], [address] HCO3 (Bld) [Moles/Vol] 44.5 mmol/L High 22-26 [facility] Comment on above: Performed By: #### L 0.0800 ####[facility] [address] [place], [address] Mode Not entered Normal [facility] Comment on above: Performed By: #### L 0.0800 ####[facility] [address] [place], [address] O2 Delivery Dev Cannula Normal [facility] Comment on above: Performed By: #### L 0.0800 ####[facility] [address] [place], [address] pCO2 79.5 mmHg Invalid Interpretation Code 35-45 [facility] Comment on above: Performed By: #### L 0.0800 ####[facility] [address] [place], [address] pH (Bld) 7.36 [pH] Normal 7.35-7.45 [facility] Comment on above: Performed By: #### L 0.0800 ####[facility] [address] [place], [address] PO2 83 mmHG Normal 75-100 [facility] Comment on above: Performed By: #### L 9000.0800 ####[facility] [address] [place], [address] Read Back By Yes [facility] Comment on above: Performed By: #### L 0.0800 ####[facility] [address] [place], [address] Results To Andes Normal [facility] Comment on above: Performed By: #### L 9000.0800 ####[facility] [address] [place], [address] SITE L Radial Normal [facility] Comment on above: Performed By: #### L 9000.0800 ####[facility] [address] [place], [address] SO2 95 Normal 95-99 [facility] Comment on above: Performed By: #### L 0.0800 ####[facility] [address] [place], [address] Time Given 04:48:18 Normal [facility] Comment on above: Performed By: #### L 0.0800 ####[facility] [address] [place], [address] Blood base excess determinat ionOrdered By: Riley Jeff on 09-29-2024 Base excess Calc (BldV) [Moles/Vol] 19 mmol/L High -2-2 [facility] Blood bicarbonate measuremen tOrdered By: Riley Jeff on 09-29-2024 HCO3 (Bld) [Moles/Vol] 44.5 mmol/L High 22-26 [facility] CBC W/Diff, Automatedon 06-0 Absolute Lymph 1.40 X10 3/uL Normal 0.83-4.51 [facility] Comment on above: Performed By: #### L 100.0100 ####[facility] [address] [place], [address] Absolute Neut 8.4 X10 3/uL High 2.0-7.7 [facility] Comment on above: Performed By: #### L 100.0100 ####[facility] [address] [place], [address] Basophils/100 WBC (Bld) 0.2 % Normal 0-1 [facility] Comment on above: Performed By: #### L 100.0100 ####[facility] [address] [place], [address] Eosinophils/100 WBC (Bld) 0.7 % Normal 0-5 [facility] Comment on above: Performed By: #### L 100.0100 ####[facility] [address] [place], [address] Erythrocyte distribution width (RBC) [Ratio] 13.1 % Normal 11.6-14.6 [facility] Comment on above: Performed By: #### L 100.0100 ####[facility] [address] [place], [address] Hematocrit (Bld) [Volume fraction] 41.7 % Normal 37-47 [facility] Comment on above: Performed By: #### L 100.0100 ####[facility] [address] [place], [address] Hemoglobin (Bld) [Mass/Vol] 13.6 g/dL Normal 12.0-15.0 [facility] Comment on above: Performed By: #### L 100.0100 ####[facility] [address] [place], [address] IG% 0.500 Normal 0.0-0.9 [facility] Comment on above: Result Comment: IG% - Immature Granulocytes (promyelocytes, myelocytes andmetamyelocytes) > 1% indicates that a LEFT SHIFT is Present. Performed By: #### L 100.0100 ####[facility] [address] [place], [address] Lymphocytes/100 WBC (Bld) 13.2 % Low 19-41 [facility] Comment on above: Performed By: #### L 100.0100 ####[facility] [address] [place], [address] MCH (RBC) [Entitic mass] 27.9 pg Normal 27.0-32.0 [facility] Comment on above: Performed By: #### L 100.0100 ####[facility] [address] [place], [address] MCHC (RBC) [Mass/Vol] 32.6 g/dL Normal 32-36 [facility] Comment on above: Performed By: #### L 100.0100 ####[facility] [address] [place], [address] MCV (RBC) [Entitic vol] 85.5 fL Normal 81-99 [facility] Comment on above: Performed By: #### L 100.0100 ####[facility] [address] [place], [address] Monocytes/100 WBC (Bld) 6.9 % Normal 0-10 [facility] Comment on above: Performed By: #### L 100.0100 ####[facility] [address] [place], [address] Neutrophils/100 WBC (Bld) 78.5 % High 47-70 [facility] Comment on above: Performed By: #### L 100.0100 ####[facility] [address] [place], [address] Nucleated RBC (Bld) [#/Vol] 0 10*3/uL Normal 0-5 [facility] Comment on above: Performed By: #### L 100.0100 ####[facility] [address] [place], [address] Platelet mean volume (Bld) [Entitic vol] 9.7 fL Normal 6.2-12.0 [facility] Comment on above: Performed By: #### L 100.0100 ####[facility] [address] [place], [address] Platelets (Bld) [#/Vol] 198 10*3/uL Normal 150-450 [facility] Comment on above: Performed By: #### L 100.0100 ####[facility] [address] [place], [address] RBC (Bld) [#/Vol] 4.88 10*6/uL Normal 4.2-5.[address] [facility] Comment on above: Performed By: #### L 100.0100 ####[facility] [address] [place], [address] RDW SD 40.6 fl Normal 35.1-43.9 [facility] Comment on above: Performed By: #### L 100.0100 ####[facility] [address] [place], [address] WBC (Bld) [#/Vol] 10.6 10*3/uL Normal 4.4-11.[address] [facility] Comment on above: Performed By: #### L 100.0100 ####[facility] [address] [place], [address] Carbon dioxide, total [Moles /volume] in Central venous bloodOrdered By: Riley Jeff on 09-29-2024 CO2 [Moles/Vol] 33.1 mmol/L High 21.0-32.0 [facility] Chest PA and Lateralon 09-29 Chest PA and Lateral Normal [facility] Chloride assayOrdered By: Silvia Jeff on 09-29-2024 Chloride [Moles/Vol] 93 mmol/L Low 98-108 [facility] Emergency Department Summary on 09-29-2024 Emergency Department Summary Normal [facility] Eosinophil percentageOrdered By: Riley Jeff on 09-29-2024 Eosinophils/100 WBC (Bld) 0.7 % 0-5 [facility] Erythrocyte distribution wid th ratioOrdered By: Riley Jeff on 09-29-2024 Erythrocyte distribution width (RBC) [Ratio] 13.1 % 11.6-14.6 [facility] Erythrocyte distribution wid th standard deviationOrdered By: Riley Jeff on 09-29-2024 Erythrocyte distribution width (RBC) [Ratio] 40.6 fl 35.1-43.9 [facility] Glomerular filtration rate ( GFR) estimation/1.73 sq m using serum, plasma, or whole bOrdered By: Riley Jeff on 09-29-2024 GFR/1.73 sq M.predicted among non-blacks MDRD (S/P/Bld) [Vol rate/Area] 94 mL/min/{1.73_m2} >60 [facility] Comment on above: mL/min/1.73m2 CKD-EP I Creatinine Equation (2020) Gram stainOrdered By: Dionne Porter on 09-29-2024 Microscopic observation Gram stain Nom (Unsp spec) [facility] H AND P Exam - Hospitaliston 09-29-2024 H&P Exam - Hospitalist Normal [facility] Hematocrit Auto (Bld) [Volum e fraction]Ordered By: Riley Jeff on 09-29-2024 Hematocrit (Bld) [Volume fraction] 41.7 % 37-47 [facility] Hemoglobin measurementOrdere d By: Riley Jeff on 09-29-2024 Hemoglobin (Bld) [Mass/Vol] 13.6 g/dL 12.0-15.0 [facility] Immature granulocytes/100 WB C Auto (Bld)Ordered By: Riley Jeff on 09-29-2024 Immature granulocytes/100 WBC (Bld) 0.500 % 0.0-0.9 [facility] Comment on above: IG% - Immature Granu locytes (promyelocytes, myelocytes and metamyelocytes) > 1% indicates that a LEFT SHIFT is Present. Influenza virus A and B and SARS-CoV-2 (COVID-19) and Respiratory syncytial virus RNAOrdered By: Riley Jeff on 09-29-2024 SARS-CoV-2 (COVID-19) RNA ASPEN+probe Ql (Unsp spec) [facility] L503.7505on 09-29-2024 Natriuretic peptide B (Bld) [Mass/Vol] 518 pg/mL Normal <=900 [facility] Comment on above: Result Comment: Hear t Failure Unlikely: < 300 pg/mLHeart Failure Likely< 50 Years: > 450 pg/mL50-75 Years: > 900 pg/mL>75 Years: > 1800 pg/mL Performed By: #### L 501.5200, L500.2500, L503.7505 ####[facility] [address] [place], [address] L509.7001on 09-29-2024 Procalcitonin 0.04 ng/mL Normal <=0.10 [facility] Comment on above: Result Comment: Inte rpretation:<0.10-0.25 ng/mL: Antibiotic therapy discouraged. Bacterialinfection unlikely.0.25-0.50 ng/mL: Antibiotic therapy encouraged. Bacterialinfection possible.>0.50 ng/mL: Antibiotic therapy strongly encouraged.Suggestive of presence of bacterial infection.PCT should always be interpreted in the clinical context ofthe patient. Therefore, clinicians should use the PCTresults in conjunction with other laboratory findings andclinical signs of the patient. Performed By: #### L 509.7001 ####[facility] [address] [place], [address] M100.678on 09-29-2024 M100.678 Pending SARS-CoV-2 (COVID 19) Negative INFLUENZA A Negative INFLUENZA B Negative RSV PCR Negative Normal [facility] Comment on above: Performed By: #### M 100.678 ####[facility] [address] [place], [address] MCV (mean corpuscular volume ) determinationOrdered By: Riley Jeff on 09-29-2024 MCV (RBC) [Entitic vol] 85.5 fL 81-99 [facility] Magnesiumon 09-29-2024 Magnesium [Mass/Vol] 2.0 mg/dL Normal 1.5-2.2 [facility] Comment on above: Performed By: #### L 501.5200, L500.2500, L503.7505 ####[facility] [address] [place], [address] Magnesium measurement (mass/ volume)Ordered By: Riley Jeff on 09-29-2024 Magnesium (Unsp spec) [Mass/Vol] 2.0 mg/dL 1.5-2.2 [facility] Mean corpuscular hemoglobin (MCH) determinationOrdered By: Riley Jeff on 09-29-2024 MCH (RBC) [Entitic mass] 27.9 pg 27.0-32.0 [facility] Mean corpuscular hemoglobin concentration (MCHC) determinationOrdered By: Riley Jeff on 09-29-2024 MCHC (RBC) [Mass/Vol] 32.6 g/dL 32-36 [facility] Mean platelet volume determi nationOrdered By: Riley Jeff on 09-29-2024 Platelet mean volume (Bld) [Entitic vol] 9.7 fL 6.2-12.0 [facility] Measurement, pHOrdered By: Duncan Jeff on 09-29-2024 pH (Unsp spec) 7.36 [pH] 7.35-7.45 [facility] Microbial respiratory cultur eOrdered By: Dionne Porter on 09-29-2024 Microorganism identified Cx Nom (Unsp spec) Stenotrophomonas maltophilia Abnormal [facility] Microorganism identified Cx Nom (Unsp spec) Pseudomonas aeruginosa Abnormal [facility] Monocyte percentageOrdered B y: Riley Jeff on 09-29-2024 Monocytes/100 WBC (Bld) 6.9 % 0-10 [facility] Natriuretic peptide.B prohor sharee N-Terminal [Mass/volume] in Serum or PlasmaOrdered By: Riley Jeff on 09-29-2024 Natriuretic peptide.B prohormone N-Terminal [Mass/Vol] 518 pg/mL <900 [facility] Comment on above: Heart Failure Unlike ly: < 300 pg/mLHeart Failure Likely< 50 Years: > 450 pg/mL50-75 Years: > 900 pg/mL>75 Years: > 1800 pg/mL Neutrophil percentageOrdered By: Riley Jeff on 09-29-2024 Neutrophils/100 WBC (Bld) 78.5 % High 47-70 [facility] No Panel InformationOrdered By: Riley Jeff on 09-29-2024 Bld Gas Crit Called To/Read Back By Yes [facility] Blood Gas Notified Time 04:48:18 [facility] Blood Gas Notified Whom Randee [facility] Blood Gas Sample Site L Radial [facility] Blood Gas Specimen Type ART [facility] Blood Gas Vent Mode Not entered [facility] Oxygen Delivery Device Cannula [facility] Nucleated red blood cell per centageOrdered By: Riley Jeff on 09-29-2024 Nucleated RBC/100 WBC (Bld) [Ratio] 0 % 0-5 [facility] Platelet countOrdered By: Silvia Jeff on 09-29-2024 Platelets (Bld) [#/Vol] 198 10*3/uL 150-450 [facility] Potassium measurement (mass/ volume)Ordered By: Riley Jeff on 09-29-2024 Potassium (Unsp spec) [Mass/Vol] 4.4 mmol/L 3.3-5.1 [facility] Procalcitonin [Mass/volume] in Serum or Plasma by ImmunoassayOrdered By: Dionne Porter on 09-29-2024 Procalcitonin IA [Mass/Vol] 0.04 ng/mL <0.11 [facility] Comment on above: Interpretation:<0.10 -0.25 ng/mL: [...] 09-29-2024 RBC (Bld) [#/Vol] 4.88 10*6/uL 4.2-5.[address] [facility] RESPIRATORY PANEL MOLECULARo n 09-29-2024 RP PANEL Normal [facility] Comment on above: Performed By: #### M 100.960 ####[facility] [id number] [place], [place], [id number] Respiratory pathogens detect ion panel by molecular detection methodOrdered By: Dionne Porter on 09-29-2024 Respiratory pathogens DNA and RNA panel ASPEN+probe (Resp) [facility] Serum creatinine measurement (mass/volume)Ordered By: Riley Jeff on 09-29-2024 Creatinine [Mass/Vol] 0.70 mg/dL 0.70-1.20 [facility] Serum glucose measurement (m ass/volume)Ordered By: Riley Jeff on 09-29-2024 Glucose [Mass/Vol] 129 mg/dL High 70-99 [facility] Serum or plasma calcium kadi urement (mass/volume)Ordered By: Riley Jeff on 09-29-2024 Calcium [Mass/Vol] 8.9 mg/dL 7.6-11.0 [facility] Serum or plasma urea nitroge n measurement (mass/volume)Ordered By: Riley Jeff on 09-29-2024 Urea nitrogen [Mass/Vol] 18 mg/dL 4-19 [facility] Sodium levelOrdered By: Brennen Jeff on 09-29-2024 Sodium [Moles/Vol] 136 mmol/L 133-145 [facility] Total carbon dioxide measure mentOrdered By: Riley Jeff on 09-29-2024 CO2 [Moles/Vol] 47 mmol/L [facility] White blood cell (WBC) count Ordered By: Riley Jeff on 09-29-2024 WBC (Bld) [#/Vol] 10.6 10*3/uL 4.4-11.[address] [facility] CNPNon 07-24-2024 [facility]ON[facility]ALE[facility] ([id number]) 1955 F Date Time Provider Department 07/24/24 Y[facility]PH FALL [facility] [facility] During your visit today, we recorded the [...] rash. He states the Pt has a rubber goods tester that come in tomorrow and she could [...] an allergic reaction. MD Annmarie Chopra Amanda, RN 07/24/2024 6:11 PM Signed Pt significant other [...] expectorate) 4 times daily until gone. - HYDROcodone-acetamino phen (NORCO) 5-325 mg per tablet Take 1 [...] Use over 5 to 15 minutes - fluticasone-salmetero l (ADVAIR DISKUS) 500-50 mcg/dose dsdv Inhale 1 [...] directed. Dx: COPD J44.9 - Nebulizer Accessories [facility] Mask and supplies as needed - PULSE OXIMETER [facility] Use as directed to check oxygen saturation level - ammonium lactate (AMLACTIN) 12 % lotion Apply 1 application to affected area as needed for Dry Skin. - losartan (COZAAR) 50 mg tablet Take 0.5 tablets by mouth once daily. - OXYGEN, HOME THERAPY, 2.5 L/min by Nasal Cannula route continuous. Use as directred - Disposable Gloves (DISPOSABLE LATEX-FREE GLOVES) [facility] [place] [place] 1 Box once every [...] (more content not included)... [facility] DEN[facility]ON[facility]ALE[facility] ([id number]) 1955 F Date Time Provider Department 07/12/24 Y[facility] FALL [facility] [facility] During your visit today, we recorded the following information about you: Sukhi Marrero RN 07/12/2024 2:51 PM Signed Jenni hyde [facility] calls to request chart notes to support patients need for continued oxygen. Most recent visits have all been [facility]. Jenni requests most recent visit be faxed. Faxed to [phone] per request. Sukhi Marrero RN Allergies As [...] expectorate) 4 times daily until gone. - HYDROcodone-acetamino phen (NORCO) 5-325 mg per tablet Take 1 [...] Use over 5 to 15 minutes - fluticasone-salmetero l (ADVAIR DISKUS) 500-50 mcg/dose dsdv Inhale 1 [...] directed. Dx: COPD J44.9 - Nebulizer Accessories [facility] [place] and supplies as needed - PULSE OXIMETER [facility] Use as directed to check oxygen saturation level - ammonium lactate (AMLACTIN) 12 % lotion Apply 1 application to affected area as needed for Dry Skin. - losartan (COZAAR) 50 mg tablet Take 0.5 tablets by mouth once daily. - OXYGEN, HOME THERAPY, 2.5 L/min by Nasal Cannula route continuous. Use as directred - Disposable Gloves (DISPOSABLE LATEX-FREE GLOVES) [facility] [place] [place] 1 Box once every [...] Encounter Status:Closed by SUKHI MARRERO on 07/12/24 Normal [facility] CNPDaylin 06-12-2024 CNPN Telephone ([facility]) DENIA GONZALEZ ([id number]) 1955 F Date Time Provider Department 06/12/24 YOSEPH FALL [facility] [facility] During your visit today, we recorded the following information about you: Sanjana Baca MA 06/12/2024 12:44 PM Signed Type of form: Medical Necessity for incontinence supplies. Form received via fax When form is completed, Fax form to [phone] Form has been forwarded to Physician Desk: [...] 1 tablet by mouth once daily. - HYDROcodone-acetamino phen (NORCO) 5-325 mg per tablet Take 1 [...] Use over 5 to 15 minutes - fluticasone-salmetero l (ADVAIR DISKUS) 500-50 mcg/dose dsdv Inhale 1 [...] and supplies as needed - PULSE OXIMETER [facility] Use as directed to check oxygen [...] Encounter Status:Closed by SANJANA BACA on 06/12/24 [facility] CNPDaylin 06-02-2024 CNPN Telephone ([facility]) DENIA GONZALEZ ([id number]) 1955 F Date Time Provider Department 06/02/24 [facility]PH FALL [facility] During your visit today, we recorded the following information about you: Ban Villafana LPN 06/02/2024 8:13 AM Signed Electronic PA rec'd and completed for cyclobenzaprine. This was denied. Note from payer: CaseId:[id number];Statu s:Denied;Review Type:Prior Auth;Appeal Information: Attention:ATTN: MEDICARE CLINICAL APPEALS [employer] [address] [address],[place], [place],[address] WebAddress:[email or web address]; Important - Please read the below note [...] for a decision on the appeal.; Payer: [employer] HOME DELIVERY [phone] Electronic appeal: Supported View History Notes Time [...] to its destination. To be filled at: [facility] [address] [place] [address] [address] [facility] [phone] Allergies As of Date: 06/02/2024 (No Known Allergies) Date Reviewed: 04/07/2024 Reviewed by: Sanjana Baca MA - Fully Assessed Reason for Visit: Insurance Authorization [[id number]] Prescriptions as of 06/07/2024 - cyclobenzaprine (FLEXERIL) 10 mg tablet Take 1 tablet by mouth two times a day as needed for muscle spasm. - montelukast (SINGULAIR) 10 mg tablet Take 1 tablet by mouth once daily. - HYDROcodone-acetamino phen (NORCO) 5-325 mg per tablet Take 1 [...] Use over 5 to 15 minutes - fluticasone-salmetero l (ADVAIR DISKUS) 500-50 mcg/dose dsdv Inhale 1 [...] directed. Dx: COPD J44.9 - Nebulizer Accessories [facility] [place] [place] Mask and supplies as needed - PULSE OXIMETER [facility] Use as directed to check oxygen saturation level - ammonium lactate (AMLACTIN) 12 % lotion Apply 1 application to affected area as needed for Dry Skin. - losartan (COZAAR) 50 mg tablet Take 0.5 tablets by mouth once daily. - OXYGEN, HOME THERAPY, 2.5 L/min by Nasal Cannula route continuous. Use as directred - Disposable Gloves (DISPOSABLE LATEX-FREE GLOVES) [facility] [place] 1 Box once every [...] Noted Reso (more content not included)... Normal [facility] [place] 03-21-2024 [place] Telephone ([facility]) CARLOSDENIA ([id number]) 1955 F Date Time Provider Department 03/21/24 YOSEPH FALL During your visit today, we [...] Please review and advise, KAREN Werner Ashley, APRN.[facility] 03/22/2024 8:51 AM Signed The following [...] times a day for 10 days. - HYDROcodone-acetamino phen (NORCO) 5-325 mg per tablet Take 1 [...] expectorate) 4 times daily until gone. - fluticasone-salmetero l (ADVAIR DISKUS) 500-50 mcg/dose dsdv Inhale 1 [...] directed. Dx: COPD J44.9 - [facility] and supplies as needed - PULSE OXIMETER [facility] Use as directed to check oxygen saturation level - ammonium lactate (AMLACTIN) 12 % lotion Apply 1 application to affected area as needed for Dry Skin. - losartan (COZAAR) 50 mg tablet Take 0.5 tablets by mouth once daily. - OXYGEN, HOME THERAPY, 2.5 L/min by Nasal Cannula route continuous. Use as directred - Disposable Gloves (DISPOSABLE LATEX-FREE GLOVES) [facility] [place] [place] Box once every [...] PAP S (more content not included)... [facility] Telephone ([facility]) DENIA GONZALEZ ([id number]) 1955 F Date Time Provider Department 02/03[facility]24 [facility] your visit today, we recorded [...] Fully Assessed Reason for Visit: Patient Question [8994] Order(s):amoxicillin (AMOXIL) 875 mg tabletTake 1 tablet by mouth two times a day for 10 days.Disp: 20 tabletRfl: 0 Prescriptions as of 02/04/2024 - amoxicillin (AMOXIL) 875 mg tablet Take 1 tablet by mouth two times a day for 10 days. - HYDROcodone-acetamino phen (NORCO) 5-325 mg per tablet Take 1 tablet by mouth two times a day as needed for pain for up to 30 days. - nystatin (MYCOSTATIN) 100,000 unit/mL suspension Take 5 mL by mouth four times daily. 1tsp swish in mouth for several minutes, then swallow (or expectorate) 4 times daily until gone. - fluticasone-salmetero l (ADVAIR DISKUS) 500-50 mcg/dose dsdv Inhale 1 Puff as instructed two times a day. Rinse and gargle mouth with water after use. - cyclobenzaprine (FLEXERIL) 10 mg tablet Take 1 tablet by mouth two times a day as needed for muscle spasm. - rOPINIRole (REQUIP) 0.25 mg tablet Take 1 tablet by mouth daily at bedtime. - ipratropium-albuterol (DUONEB) 0.5 mg-3 mg(2.5 mg [...] directed. Dx: COPD J44.9 - Nebulizer Accessories [facility] [place] Mask and supplies as needed - PULSE OXIMETER [facility] Use as directed to check oxygen saturation level - ammonium lactate (AMLACTIN) 12 % lotion Apply 1 application to affected area as needed for Dry Skin. - losartan (COZAAR) 50 mg tablet Take 0.5 tablets by mouth once daily. - OXYGEN, HOME THERAPY, 2.5 L/min by Nasal Cannula route continuous. Use as directred - Disposable Gloves (DISPOSABLE LATEX-FREE GLOVES) [facility] 1 Box once every [...] (more content not included)... [facility]) DEN[facility] GONZALEZ ([id number]) 1955 F Date Time Provider Department 02/03/24 [facility] During your visit today, we recorded the following information about you: Cami Louie, KAREN 02/03/2024 1:25 PM Signed Daughter reports patient [...] Known Allergies) Date Reviewed: 11/29/2023 Reviewed by: Baca, Sanjana, MA - Fully Assessed Reason for Visit: Patient Question [1477] Prescriptions as of 02/03/2024 - HYDROcodone-acetamino phen (NORCO) 5-325 mg per tablet Take 1 tablet by mouth two times a day as needed for pain for up to 30 days. - nystatin (MYCOSTATIN) 100,000 unit/mL suspension Take 5 mL by mouth four times daily. 1tsp swish in mouth for several minutes, then swallow (or expectorate) 4 times daily until gone. - fluticasone-salmetero l (ADVAIR DISKUS) 500-50 mcg/dose dsdv Inhale 1 Puff as instructed two times a day. Rinse and gargle mouth with water after use. - cyclobenzaprine (FLEXERIL) 10 mg tablet Take 1 tablet by mouth two times a day as needed for muscle spasm. - rOPINIRole (REQUIP) 0.25 mg tablet Take 1 tablet by mouth daily at bedtime. - ipratropium-albuterol (DUONEB) 0.5 mg-3 mg(2.5 mg [...] directed. Dx: COPD J44.9 - Nebulizer Accessories [facility] [place] Mask and supplies as needed - PULSE OXIMETER [facility] Use as directed to check oxygen saturation level - ammonium lactate (AMLACTIN) 12 % lotion Apply 1 application to affected area as needed for Dry Skin. - losartan (COZAAR) 50 mg tablet Take 0.5 tablets by mouth once daily. - OXYGEN, HOME THERAPY, 2.5 L/min by Nasal Cannula route continuous. Use as directred - Disposable Gloves (DISPOSABLE LATEX-FREE GLOVES) [facility] [place] [place] Box once every [...] Encounter Status:Closed by Cami LOUIE on 02/03/24 Normal [facility] Absolute lymphocyte countOrd ered By: Jan Bolanos on 07-21-2023 Lymphocytes Auto (Unsp spec) [#/Vol] 0.61 10*3/uL 0.83-4.51 [facility] Automated lymphocyte count a s percentage of total leukocytesOrdered By: Jan Bolanos on 07-21-2023 Lymphocytes/100 WBC Auto (Unsp spec) 8.8 % 19-41 [facility] Basophil percentageOrdered B y: Jan Bolanos on 07-21-2023 Basophils/100 WBC (Bld) 0.0 % 0-1 [facility] Chloride [Moles/Vol] 107 mmol/L 98-107 [facility] Eosinophils/100 WBC (Bld) 0.0 % 0-5 [facility] Glucose [Mass/Vol] 140 mg/dL 74-106 [facility] Comment on above: Fasting Glucose resu lt greater than or equal to 126 mg/dL suggests DIABETES MELLITUS per A.D.A. criteria. Hemoglobin (Bld) [Mass/Vol] 12.0 g/dL 12.0-15.0 [facility] Monocytes/100 WBC (Bld) 2.7 % 0-10 [facility] Neutrophils (Bld) [#/Vol] 6.1 10*3/uL 2.0-7.7 [facility] Neutrophils/100 WBC (Bld) 88.1 % 47-70 [facility] Potassium [Moles/Vol] 4.1 mmol/L 3.5-5.1 [facility] Sodium [Moles/Vol] 140 mmol/L 136-145 [facility] WBC (Bld) [#/Vol] 6.9 10*3/uL 4.4-11.0 [facility] Determination of erythrocyte mean corpuscular volume (MCV)Ordered By: Jan Bolanos on 07-21-2023 MCV (RBC) [Entitic vol] 82.7 fL 81-99 [facility] Erythrocyte distribution wid th ratioOrdered By: Jan Bolanos on 07-21-2023 Erythrocyte distribution width (RBC) [Ratio] 13.4 % 11.6-14.6 [facility] Erythrocyte distribution wid th standard deviationOrdered By: Jan Bolanos on 07-21-2023 Erythrocyte distribution width (RBC) [Entitic vol] 40.3 fL 35.1-43.9 [facility] Gram stain for investigation of transfusion reactionOrdered By: Jan Bolanos on 07-21-2023 Microscopic observation Gram stain Nom (Unsp spec) [facility] Hematocrit Auto (Bld) [Volum e fraction]Ordered By: Jan Bolanos on 07-21-2023 Hematocrit (Bld) [Volume fraction] 37.4 % 37-47 [facility] Immature granulocytes/100 WB C Auto (Bld)Ordered By: Jan Bolanos on 07-21-2023 Immature granulocytes/100 WBC (Bld) 0.400 % 0.0-0.9 [facility] Comment on above: IG% - Immature Granu locytes (promyelocytes, myelocytes and metamyelocytes) > 1% indicates that a LEFT SHIFT is Present. Laboratory - Chemistry and C hemistry - challengeOrdered By: Jan Bolanos on 07-21-2023 CO2 [Moles/Vol] 30.0 mmol/L 21.0-32.0 [facility] Urea nitrogen/Creatinine [Mass ratio] 27.8 mg/mg 10-20 [facility] Laboratory - Hematology and Cell countsOrdered By: Jan Bolanos on 07-21-2023 MCH (RBC) [Entitic mass] 26.5 pg 27.0-32.0 [facility] MCHC (RBC) [Mass/Vol] 32.1 g/dL 32-36 [facility] Nucleated RBC/100 WBC (Bld) [Ratio] 0 % 0-5 [facility] Platelet mean volume (Bld) [Entitic vol] 9.9 fL 6.2-12.0 [facility] Platelets (Bld) [#/Vol] 210 10*3/uL 150-450 [facility] No Panel InformationOrdered By: Jan Bolanos on 07-21-2023 Estimated Creatinine Clearance Calc 64.83 ml/min [facility] Estimated GFR (MDRD) Amer 170 mL/min >60 [facility] Comment on above: GFR Calc Estimated GFR (MDRD) Non-Af Amer 141 mL/min >60 [facility] Comment on above: Non- GFR Calc RBC Auto (Bld) [#/Vol]Ordere d By: Jan Bolanos on 07-21-2023 RBC (Bld) [#/Vol] 4.52 10*6/uL 4.2-5.[address] [facility] Serum or plasma calcium kadi urement (mass/volume)Ordered By: Jan Bolanos on 07-21-2023 Calcium [Mass/Vol] 8.6 mg/dL 8.5-10.1 [facility] Serum or plasma creatinine m easurement (mass/volume)Ordered By: Jan Bolanos on 07-21-2023 Creatinine [Mass/Vol] 0.47 mg/dL 0.55-1.02 [facility] Comment on above: The validity of the calculated GFR & GFRAA in patients over 70 years has not been determined. Clinical correlation is essential. Serum or plasma urea nitroge n measurement (mass/volume)Ordered By: Jan Bolanos on 07-21-2023 Urea nitrogen [Mass/Vol] 13 mg/dL 7-18 [facility] Thin prep Papanicolaou smear with manual screeningOrdered By: Jan Bolanos on 07-21-2023 Thin prep Papanicolaou smear with manual screening 3 5-15 [facility] Absolute lymphocyte countOrd ered By: Dallas Mena on 07-20-2023 Lymphocytes Auto (Unsp spec) [#/Vol] 2.11 10*3/uL 0.83-4.51 [facility] Automated lymphocyte count a s percentage of total leukocytesOrdered By: Dallas Mena on 07-20-2023 Lymphocytes/100 WBC Auto (Unsp spec) 23.7 % 19-41 [facility] Basophil percentageOrdered B y: José Churchenzo on 07-20-2023 Basophil percentage 2.4 mg/dL 2.5-4.[address] [facility] Bilirubin [Mass/Vol] 0.40 mg/dL 0.20-1.00 [facility] Comment on above: For patients on eltr ombopag therapy, use of Dimension [place] TBIL is not recommended. Protein [Mass/Vol] 7.4 g/dL 6.4-8.2 [facility] Basophil percentageOrdered B y: Dallas Mena on 07-20-2023 Basophils/100 WBC (Bld) 0.3 % 0-1 [facility] Chloride [Moles/Vol] 101 mmol/L 98-107 [facility] Eosinophils/100 WBC (Bld) 0.6 % 0-5 [facility] Glucose [Mass/Vol] 129 mg/dL 74-106 [facility] Comment on above: Fasting Glucose resu lt greater than or equal to 126 mg/dL suggests DIABETES MELLITUS per A.D.A. criteria. Hemoglobin (Bld) [Mass/Vol] 14.1 g/dL 12.0-15.0 [facility] Monocytes/100 WBC (Bld) 7.6 % 0-10 [facility] Neutrophils (Bld) [#/Vol] 6.0 10*3/uL 2.0-7.7 [facility] Neutrophils/100 WBC (Bld) 67.5 % 47-70 [facility] Potassium [Moles/Vol] 3.8 mmol/L 3.5-5.1 [facility] Sodium [Moles/Vol] 139 mmol/L 136-145 [facility] WBC (Bld) [#/Vol] 8.9 10*3/uL 4.4-11.0 [facility] Determination of erythrocyte mean corpuscular volume (MCV)Ordered By: Dallas Mena on 07-20-2023 MCV (RBC) [Entitic vol] 82.8 fL 81-99 [facility] Erythrocyte distribution wid th ratioOrdered By: Dallas Mena on 07-20-2023 Erythrocyte distribution width (RBC) [Ratio] 13.6 % 11.6-14.6 [facility] Erythrocyte distribution wid th standard deviationOrdered By: Dallas Mena on 07-20-2023 Erythrocyte distribution width (RBC) [Entitic vol] 41.0 fL 35.1-43.9 [facility] Hematocrit Auto (Bld) [Volum e fraction]Ordered By: Dallas Mena on 07-20-2023 Hematocrit (Bld) [Volume fraction] 44.2 % 37-47 [facility] Immature granulocytes/100 WB C Auto (Bld)Ordered By: Dallas Mena on 07-20-2023 Immature granulocytes/100 WBC (Bld) 0.300 % 0.0-0.9 [facility] Comment on above: IG% - Immature Granu locytes (promyelocytes, myelocytes and metamyelocytes) > 1% indicates that a LEFT SHIFT is Present. Laboratory - Chemistry and C hemistry - challengeOrdered By: José Smith on 07-20-2023 Albumin/Globulin [Mass ratio] 0.8 {ratio} 0.9-2.4 [facility] ALP [Catalytic activity/Vol] 72 U/L 45-117 [facility] ALT [Catalytic activity/Vol] 15 U/L 13-56 [facility] Globulin (S) [Mass/Vol] 4.0 g/dL 2.2-4.2 [facility] Magnesium [Mass/Vol] 2.1 mg/dL 1.6-2.6 [facility] Laboratory - Chemistry and C hemistry - challengeOrdered By: Dallas Mena on 07-20-2023 CO2 [Moles/Vol] 33.0 mmol/L 21.0-32.0 [facility] Urea nitrogen/Creatinine [Mass ratio] 18.7 mg/mg 10-20 [facility] Laboratory - Hematology and Cell countsOrdered By: Dallas Mena on 07-20-2023 MCH (RBC) [Entitic mass] 26.4 pg 27.0-32.0 [facility] MCHC (RBC) [Mass/Vol] 31.9 g/dL 32-36 [facility] Nucleated RBC/100 WBC (Bld) [Ratio] 0 % 0-5 [facility] Platelet mean volume (Bld) [Entitic vol] 9.9 fL 6.2-12.0 [facility] Platelets (Bld) [#/Vol] 233 10*3/uL 150-450 [facility] Laboratory - Microbiology an d Antimicrobial susceptibilityOrdered By: Dallas Mena on 07-20-2023 SARS-CoV-2 (COVID-19) RNA ASPEN+probe Ql (Unsp spec) [facility] No Panel InformationOrdered By: Dallas Mena on 07-20-2023 Estimated Creatinine Clearance Calc 65.47 ml/min [facility] Estimated GFR (MDRD) Amer 108 mL/min >60 [facility] Comment on above: GFR Calc Estimated GFR (MDRD) Non-Af Amer 89 mL/min >60 [facility] Comment on above: Non- GFR Calc RBC Auto (Bld) [#/Vol]Ordere d By: Dallas Mena on 07-20-2023 RBC (Bld) [#/Vol] 5.34 10*6/uL 4.2-5.[address] [facility] Serum or plasma calcium kadi urement (mass/volume)Ordered By: Dallas Mena on 07-20-2023 Calcium [Mass/Vol] 8.8 mg/dL 8.5-10.1 [facility] Serum or plasma creatinine m easurement (mass/volume)Ordered By: Dallas Mena on 07-20-2023 Creatinine [Mass/Vol] 0.70 mg/dL 0.55-1.02 [facility] Comment on above: The validity of the calculated GFR & GFRAA in patients over 70 years has not been determined. Clinical correlation is essential. Serum or plasma thyroid stim ulating hormone (TSH) measurement (units/volume)Ordered By: José Smith on 07-20-2023 TSH Qn 0.35 uIU/mL 0.358-3.74 [facility] Serum or plasma urea nitroge n measurement (mass/volume)Ordered By: Dallas Mena on 07-20-2023 Urea nitrogen [Mass/Vol] 13 mg/dL 7-18 [facility] Thin prep Papanicolaou smear with manual screeningOrdered By: José Smith on 07-20-2023 Thin prep Papanicolaou smear with manual screening 3.4 g/dL 3.2-5.0 [facility] Thin prep Papanicolaou smear with manual screening 13 U/L 15-37 [facility] Thin prep Papanicolaou smear with manual screeningOrdered By: Dallas Mena on 07-20-2023 Thin prep Papanicolaou smear with manual screening 5 5-15 [facility] FECAL OCCULT BLOOD TESTon Lower GI hemoglobin IA Ql (Stl) Negative Negative [facility] OXIMETRY WITH AMBULATIONon 1 [facility] Vital Signs Date Time Vital Sign Value Performing Clinician Faci lity 01-05-2025 15:00-0400 Diastolic blood pressure 82 mm[Hg] Zaria Shea MD Work Phone: [facility] 01-05-2025 15:00-0400 Heart rate 100 /min Zaria Shea MD Work Phone: [facility] 01-05-2025 15:00-0400 Respiratory rate 20 /min Zaria Shea MD Work Phone: [facility] 01-05-2025 15:00-0400 Systolic blood pressure 128 mm[Hg] Zaria Shea MD Work Phone: [facility] 01-05-2025 14:15-0400 SaO2% (BldA) [Mass fraction] 97 % Zaria Shea MD Work Phone: [facility] 01-05-2025 09:26-0400 Body temperature 98.01 [degF] Zaria Shea MD Work Phone: [facility] 12-30-2024 13:09-0400 Body temperature 98.1 [degF] Dr. Yoseph Fall MD Work Phone: [facility] 12-30-2024 13:09-0400 Diastolic blood pressure 52 mm[Hg] Dr. Yoseph Fall MD Work Phone: [facility] 12-30-2024 13:09-0400 Heart rate 91 /min Dr. Yoseph Fall MD Work Phone: [facility] 12-30-2024 13:09-0400 Inhaled oxygen flow rate 2 L/min Dr. Yoseph Fall MD Work Phone: 6(021)192-793599 [place] [address] 12-30-2024 13:09-0400 Respiratory rate 18 /min Dr. Yoseph Fall MD Work Phone: 2(924)105-941099 [place] [address] 12-30-2024 13:09-0400 SaO2% (BldA) [Mass fraction] 99 % Dr. Yoseph Fall MD Work Phone: 6(115)778-184099 [place] [address] 12-30-2024 13:09-0400 Systolic blood pressure 108 mm[Hg] Dr. Yoseph Fall MD Work Phone: 8(881)288-466799 [place] [address] 12-30-2024 05:14-0400 Body mass index (BMI) [Ratio] 27.4 kg/m2 Dr. Yoseph Fall MD Work Phone: 6(990)582-856999 [place] [address] 12-30-2024 05:14-0400 Body weight 72.[address] Yoseph Fall MD Work Phone: 8(764)330-595199 [place] [address] 12-28-2024 11:25-0400 Inhaled oxygen concentration 30 % Dr. Yoseph Fall MD Work Phone: 4(661)494-311599 [place] [address] 12-28-2024 09:46-0400 Body height 162.[address] Yoseph Fall MD Work Phone: 7(611)048-927099 [place] [address] 12-27-2024 15:13-0400 Body height 162.[address] Yoseph Fall MD Work Phone: 9(920)276-657799 [place] [address] 12-27-2024 15:13-0400 Body weight 71.[address] Yoseph Fall MD Work Phone: 1(695)434-819499 [place] [address] 12-27-2024 14:31-0400 Heart rate 94 /min Dr. Yoseph Fall MD Work Phone: 7(498)240-712499 [place] [address] 12-27-2024 14:31-0400 Respiratory rate 18 /min Dr. Yoseph Fall MD Work Phone: 3(882)764-514899 [place] [address] 12-27-2024 10:15-0400 Body temperature 98.3 [degF] Dr. Yoseph Fall MD Work Phone: 7(168)187-765899 [place] [address] 12-27-2024 10:15-0400 Diastolic blood pressure 70 mm[Hg] Dr. Yoseph Fall MD Work Phone: 2(929)768-767899 [place] [address] 12-27-2024 10:15-0400 Inhaled oxygen flow rate 3 L/min Dr. Yoseph Fall MD Work Phone: 3(059)256-164499 [place] [address] 12-27-2024 10:15-0400 SaO2% (BldA) [Mass fraction] 96 % Dr. Yoseph Fall MD Work Phone: 7(467)386-217399 [place] [address] 12-27-2024 10:15-0400 Systolic blood pressure 131 mm[Hg] Dr. Yoseph Fall MD Work Phone: 0(504)837-191499 [place] [address] 12-27-2024 05:15-0400 Body mass index (BMI) [Ratio] 26.7 kg/m2 Dr. Yoseph Fall MD Work Phone: 4(662)879-095999 [place] [address] 12-26-2024 20:00-0400 Diastolic blood pressure 81 mm[Hg] Dr. Yoseph Fall MD Work Phone: 8(321)396-653799 [place] [address] 12-26-2024 20:00-0400 Heart rate 106 /min Dr. Yoseph Fall MD Work Phone: 9(747)038-265699 [place] [address] 12-26-2024 20:00-0400 Inhaled oxygen flow rate 3 L/min Dr. Yoseph Fall MD Work Phone: 1(711)297-310399 [place] [address] 12-26-2024 20:00-0400 Respiratory rate 18 /min Dr. Yoseph Fall MD Work Phone: 3(249)247-615599 [place] [address] 12-26-2024 20:00-0400 SaO2% (BldA) [Mass fraction] 97 % Dr. Yoseph Fall MD Work Phone: 3(775)141-467999 [place] [address] 12-26-2024 20:00-0400 Systolic blood pressure 138 mm[Hg] Dr. Yoseph Fall MD Work Phone: 2(680)425-697699 [place] [address] 12-26-2024 19:58-0400 Body temperature 98.6 [degF] Dr. Yoseph Fall MD Work Phone: [facility] 12-26-2024 16:37-0400 Body mass index (BMI) [Ratio] 28 kg/m2 Dr. Yoseph Fall MD Work Phone: [facility] 12-26-2024 16:37-0400 Body weight [address] Yoseph Fall MD Work Phone: [facility] 12-26-2024 13:53-0400 Body height 162.[address] Yoseph Fall MD Work Phone: [facility] 12-15-2024 15:04-0400 Diastolic blood pressure 80 mm[Hg] Zaria Shea MD Work Phone: [facility] 12-15-2024 15:04-0400 Systolic blood pressure 130 mm[Hg] Zaria Shea MD Work Phone: [facility] 12-15-2024 14:45-0400 Body height 162.6 cm Rubi Corbett MD Work Phone: [facility] 12-15-2024 14:45-0400 Body mass index (BMI) [Ratio] 26.61 kg/m2 Rubi Corbett MD Work Phone: [facility] 12-15-2024 14:45-0400 Body weight 70.31 kg Rubi Corbett MD Work Phone: [facility] 12-15-2024 14:45-0400 Diastolic blood pressure 90 mm[Hg] Rubi Corbett MD Work Phone: [facility] 12-15-2024 14:45-0400 Heart rate 99 /min Rubi Corbett MD Work Phone: [facility] 12-15-2024 14:45-0400 SaO2% (BldA) [Mass fraction] 93 % Rubi Corbett MD Work Phone: [facility] 12-15-2024 14:45-0400 Systolic blood pressure 164 mm[Hg] Rubi Corbett MD Work Phone: [facility] 12-15-2024 14:36-0400 Body height 162.6 cm Zaria Shea MD Work Phone: [facility] 12-15-2024 14:36-0400 Body mass index (BMI) [Ratio] 26.61 kg/m2 Zaria Shea MD Work Phone: [facility] 12-15-2024 14:36-0400 Body weight 70.31 kg Zaria Shea MD Work Phone: [facility] 12-15-2024 14:36-0400 Heart rate 99 /min Zaria Shea MD Work Phone: [facility] 12-15-2024 14:36-0400 SaO2% (BldA) [Mass fraction] 93 % Zaria Shea MD Work Phone: [facility] 11-03-2024 13:06-0400 Body height 162.[address] Yoseph Fall MD Work Phone: [facility] 11-03-2024 13:06-0400 Body mass index (BMI) [Ratio] 25.9 kg/m2 Dr. Yoseph Fall MD Work Phone: [facility] 11-03-2024 13:06-0400 Body weight 68.[address] Yoseph Fall MD Work Phone: [facility] 11-03-2024 13:06-0400 Diastolic blood pressure 65 mm[Hg] Dr. Yoseph Fall MD Work Phone: [facility] 11-03-2024 13:06-0400 Heart rate 86 /min Dr. Yoseph Fall MD Work Phone: [facility] 11-03-2024 13:06-0400 Respiratory rate 20 /min Dr. Yoseph Fall MD Work Phone: [facility] 11-03-2024 13:06-0400 Systolic blood pressure 110 mm[Hg] Dr. Yoseph Fall MD Work Phone: [facility] 10-17-2024 14:32-0400 Body mass index (BMI) [Ratio] 26.22 kg/m2 Yoseph Fall MD Work Phone: [facility] 10-17-2024 14:32-0400 Body temperature 97.81 [degF] Yoseph Fall MD Work Phone: [facility] 10-17-2024 14:32-0400 Body weight 67.13 kg Yoseph Fall MD Work Phone: [facility] 10-17-2024 14:32-0400 Diastolic blood pressure 64 mm[Hg] Yoseph Fall MD Work Phone: [facility] 10-17-2024 14:32-0400 Heart rate 82 /min Yoseph Fall MD Work Phone: [facility] 10-17-2024 14:32-0400 SaO2% (BldA) [Mass fraction] 94 % Yoseph Fall MD Work Phone: [facility] 10-17-2024 14:32-0400 Systolic blood pressure 105 mm[Hg] Yoseph Fall MD Work Phone: [facility] 10-09-2024 15:47-0400 Heart rate 109 /min Dr. Yoseph Fall MD Work Phone: [facility] 10-09-2024 15:47-0400 Respiratory rate 20 /min Dr. Yoseph Fall MD Work Phone: [facility] 10-09-2024 15:37-0400 Inhaled oxygen flow rate 2 L/min Dr. Yoseph Fall MD Work Phone: [facility] 10-09-2024 15:35-0400 Body temperature 98.1 [degF] Dr. Yoseph Fall MD Work Phone: [facility] 10-09-2024 15:35-0400 Diastolic blood pressure 72 mm[Hg] Dr. Yoseph Fall MD Work Phone: 2(694)892-926199 [place] [address] 10-09-2024 15:35-0400 SaO2% (BldA) [Mass fraction] 97 % Dr. Yoseph Fall MD Work Phone: 3(480)452-087799 [place] [address] 10-09-2024 15:35-0400 Systolic blood pressure 142 mm[Hg] Dr. Yoseph Fall MD Work Phone: 9(363)964-907399 [place] [address] 10-09-2024 04:58-0400 Body mass index (BMI) [Ratio] 26.1 kg/m2 Dr. Yoseph Fall MD Work Phone: 3(737)117-584399 [place] [address] 10-09-2024 04:58-0400 Body weight 69.[address] Yoseph Fall MD Work Phone: 3(076)656-920399 [place] [address] 10-08-2024 11:37-0400 Body height 162.[address] Yoseph Fall MD Work Phone: 2(056)670-936399 [place] [address] 09-30-2024 22:20-0400 Inhaled oxygen concentration 30 % Dr. Yoseph Fall MD Work Phone: 9(019)603-885199 [place] [address] 09-29-2024 05:00-0400 Body temperature 98.8 [degF] Dr. Yoseph Flal MD Work Phone: 0(418)901-981299 [place] [address] 09-29-2024 05:00-0400 Diastolic blood pressure 65 mm[Hg] Dr. Yoseph Fall MD Work Phone: 9(951)107-367899 [place] [address] 09-29-2024 05:00-0400 Heart rate 111 /min Dr. Yoseph Fall MD Work Phone: 2(921)757-262499 [place] [address] 09-29-2024 05:00-0400 Respiratory rate 21 /min Dr. Yoseph Fall MD Work Phone: 1(690)963-847799 [place] [address] 09-29-2024 05:00-0400 SaO2% (BldA) [Mass fraction] 96 % Dr. Yoseph Fall MD Work Phone: 9(026)151-425599 [place] [address] 09-29-2024 05:00-0400 Systolic blood pressure 123 mm[Hg] Dr. Yoseph Fall MD Work Phone: [facility] 09-29-2024 03:23-0400 Inhaled oxygen flow rate 3 L/min Dr. Yoseph Fall MD Work Phone: [facility] 09-29-2024 02:19-0400 Body height 162.[address] Yoseph Fall MD Work Phone: [facility] 09-29-2024 02:19-0400 Body mass index (BMI) [Ratio] 27 kg/m2 Dr. Yoseph Fall MD Work Phone: [facility] 09-29-2024 02:19-0400 Body weight 71.[address] Yoseph Fall MD Work Phone: [facility] 04-07-2024 08:39-0500 Body mass index (BMI) [Ratio] 29.23 kg/m2 Yoseph Fall MD Work Phone: [facility] 04-07-2024 08:39-0500 Body temperature 98.1 [degF] Yoseph Fall MD Work Phone: [facility] 04-07-2024 08:39-0500 Body weight 74.84 kg Yoseph Fall MD Work Phone: [facility] 04-07-2024 08:39-0500 Diastolic blood pressure 76 mm[Hg] Yoseph Fall MD Work Phone: [facility] Comment on above: home bp 04-07-2024 08:39-0500 Heart rate 86 /min Yoseph Fall MD Work Phone: [facility] 04-07-2024 08:39-0500 SaO2% (BldA) [Mass fraction] 93 % Yoseph Fall MD Work Phone: [facility] 04-07-2024 08:39-0500 Systolic blood pressure 141 mm[Hg] Yoseph Fall MD Work Phone: [facility] Comment on above: home bp 07-22-2023 17:49-0400 Heart rate 93 /min Dr. Yoseph Fall Work Phone: [facility] 07-22-2023 17:49-0400 Respiratory rate 18 /min Dr. Yoseph Fall Work Phone: [facility] 07-22-2023 16:37-0400 Body temperature 98.7 [degF] Dr. Yoseph Fall Work Phone: [facility] 07-22-2023 16:37-0400 Diastolic blood pressure 68 mm[Hg] Dr. Yoseph Fall Work Phone: [facility] 07-22-2023 16:37-0400 SaO2% (BldA) [Mass fraction] 96 % Dr. Yosehp Fall Work Phone: [facility] 07-22-2023 16:37-0400 Systolic blood pressure 146 mm[Hg] Dr. Yoseph Fall Work Phone: [facility] 07-22-2023 11:00-0400 Inhaled oxygen flow rate 2.5 L/min Dr. Yoseph Fall Work Phone: [facility] 07-22-2023 06:00-0400 Body mass index (BMI) [Ratio] 26.5 kg/m2 Dr. Yoseph Fall Work Phone: [facility] 07-22-2023 06:00-0400 Body weight 70.[address] Yoseph Fall Work Phone: [facility] 07-20-2023 05:02-0400 Body height 162.56 cm [facility] 07-20-2023 05:02-0400 Body mass index (BMI) [Ratio] 26.6 kg/m2 [facility] 07-20-2023 05:02-0400 Body weight 70.6 kg [facility] 07-20-2023 05:00-0400 Body temperature 98.9 [degF] [facility] 07-20-2023 05:00-0400 Diastolic blood pressure 72 mm[Hg] [facility] 07-20-2023 05:00-0400 Heart rate 124 /min [facility] 07-20-2023 05:00-0400 Inhaled oxygen flow rate 3.5 L/min [facility] 07-20-2023 05:00-0400 Respiratory rate 24 /min [facility] 07-20-2023 05:00-0400 SaO2% (BldA) [Mass fraction] 93 % [facility] 07-20-2023 05:00-0400 Systolic blood pressure 124 mm[Hg] [facility] 02-19-2023 14:12-0400 Body weight 73.48 kg Yoseph Fall MD Work Phone: [facility] 02-19-2023 14:12-0400 Diastolic blood pressure 78 mm[Hg] Yoseph Fall MD Work Phone: [facility] 02-19-2023 14:12-0400 Heart rate 100 /min Yoseph Fall MD Work Phone: [facility] 02-19-2023 14:12-0400 Respiratory rate 20 /min Yoseph Fall MD Work Phone: [facility] 02-19-2023 14:12-0400 SaO2% (BldA) [Mass fraction] 96 % Yoseph Fall MD Work Phone: [facility] 02-19-2023 14:12-0400 Systolic blood pressure 130 mm[Hg] Yoseph Fall MD Work Phone: [facility] 05-01-2022 14:41-0500 Body weight 78.47 kg Yoseph Fall MD Work Phone: [facility] 05-01-2022 14:41-0500 Diastolic blood pressure 81 mm[Hg] Yoseph Fall MD Work Phone: [facility] 05-01-2022 14:41-0500 Heart rate 105 /min Yoseph Fall MD Work Phone: [facility] 05-01-2022 14:41-0500 Systolic blood pressure 132 mm[Hg] Yoseph Fall MD Work Phone: [facility] 02-20-2022 13:22-0400 Body weight 77.56 kg Respiratory Wstr Work Phone: [facility] 02-20-2022 13:040 Heart rate 108 /min Respiratory Wstr Work Phone: [facility] 02-20-2022 13:040 Respiratory rate 16 /min Respiratory Wstr Work Phone: [facility] 02-20-2022 13:0400 SaO2% (BldA) [Mass fraction] 93 % Res[facility] Wstr Work Phone: [facility] Encounters Encounter Date Encounter Type Care Provider Facility Start: 01-15-2025 ambulatory Yoseph Lewis y:[facility] Start: 01-12-2025 ambulatory Zaria Chacon lity:[facility] Start: 01-09-2025 End: 01-09-2025 Telephone encounter Yoseph Fall MD Work Phone: Family [facility] Comment on above: Medication Request Start: 01-08-2025 End: 01-08-2025 Telephone encounter Yoseph Fall MD Work Phone: [facility] [place] Comment on above: Delay In Care Physic al Therapy Start: 01-05-2025 End: 01-05-2025 ambulatory ZARIA SHEA [facility] Start: 01-05-2025 End: 01-05-2025 Patient encounter status Zaria Shea MD Work Phone: [facility] Work Phone: Start: 01-05-2025 End: 01-05-2025 Subsequent hospital visit by physician Zaria Shea MD Work Phone: [facility] Comment on above: Aortic valve stenosi s, etiology of cardiac valve disease unspecified (Primary Dx); Preop cardiovascular exam Start: 01-04-2025 End: 01-04-2025 ambulatory Shonda Bacon PPA TEACHER - [employer] CLAIM EXAMINER Work Phone: [facility] [place] Start: 01-03-2025 End: 01-03-2025 Telephone encounter Yoseph Fall MD Work Phone: Family [facility] Comment on above: Delay In Care Social Work Consult Start: 01-02-2025 End: 01-03-2025 Telephone encounter Yoseph Fall MD Work Phone: Family [facility] Comment on above: home health calling asking for verbal order Start: 12-29-2024 Non-patient / Non-visit Dr. Lynne Schafer MD -[facility] Work Phone: Start: 12-29-2024 Non-patient / Non-visit Stacy Jha MAILER APPRENTICE-C -[facility] Start: 12-28-2024 Non-patient / Non-visit Dr. Lynne Schafer MD -[facility] Work Phone: Start: 12-28-2024 Non-patient / Non-visit Kyle Aguilar nd DO -[facility] Start: 12-28-2024 Non-patient / Non-visit Stacy Jha MAILER APPRENTICE-C -[facility] Start: 12-27-2024 Non-patient / Non-visit Dr. Lynne Schafer MD -[facility] Work Phone: Start: 12-27-2024 Non-patient / Non-visit Stacy Jha MAILER APPRENTICE-C -[facility] Start: 12-27-2024 End: 01-01-2025 Telephone encounter Yoseph Fall MD Work Phone: [facility] Comment on above: Patient Update Start: 12-26-2024 Non-patient / Non-visit Dr. Dionne Porter MD -[facility] Work Phone: Start: 12-26-2024 ambulatory Dionne Porter Facility :[facility] Start: 12-26-2024 End: 12-30-2024 Evaluation and management of inpatient Dr. Dionne Porter MD -Progressive Care Unit Work Phone: Start: 12-26-2024 End: 12-26-2024 Telephone encounter Yoseph Fall MD Work Phone: [facility] [place] Comment on above: Insurance Authorizat ion Start: 12-22-2024 End: 12-22-2024 Telephone encounter Yoseph Fall MD Work Phone: [facility] [place] Comment on above: Patient Update Start: 12-19-2024 End: 12-19-2024 Refill Yoesph Fall MD Work Phone: [facility] [place] Comment on above: Refill Request Start: 12-15-2024 End: 12-15-2024 ambulatory ZARIA [facility] Start: 12-15-2024 End: 12-15-2024 Office consultation new/estab patient 80 min Rubi Corbett MD Work Phone: [facility] Comment on above: Severe aortic stenos is (Primary Dx); Chronic respiratory failure with hypoxia (HCC) Start: 12-15-2024 End: 12-15[facility]: 12-15-2024 End: 12-15-2024 Encounter for preprocedural cardiovascular examination [facility] Start: 12-15-2024 End: 12-15-2024 Office outpatient new 60 minutes Zaria Shea MD Work Phone: [facility] Comment on above: Preop cardiovascular exam (Primary Dx); Nonrheumatic aortic valve stenosis Start: 12-15-2024 End: 12-15-2024 Patient encounter status Zaria Shea MD Work Phone: [facility] Start: 12-08-2024 End: 12-08-2024 Refill Yoseph Fall MD Work Phone: [facility] [place] Comment on above: Refill Request Insurance Authorizat ion Start: 11-27-2024 End: 11-27-2024 Telephone encounter Yoseph Fall MD Work Phone: [facility] [place] Comment on above: [facility] Nursing Call Start: 11-24-2024 End: 11-24-2024 Telephone encounter Connor HOLM Work Phone: [facility] Comment on above: Care Coordination Start: 11-23-2024 End: 11-23-2024 [facility] Gregor Fernandez PPA TEACHER.[employer] CLAIM EXAMINER Work Phone: [facility] Comment on above: [...] chronic pain; Dependence on supplemental oxygen; 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 of 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 Refill Request Start: 11-22-2024 End: 11-28-2024 Telephone encounter Zaria Shea MD Work Phone: [facility] Start: 11-21-2024 End: 11-21-2024 ambulatory YOSEPH FALL Facility:[facility] Start: 11-21-2024 End: 11-21-2024 Patient encounter procedure Gregor Fernandez PPA TEACHER.[employer] CLAIM EXAMINER Work Phone: [facility] Comment on above: No-show for appointm ent (Primary Dx); Stage 3 severe COPD by GOLD classification (HCC); Chronic low back pain with sciatica, sciatica laterality unspecified, unspecified back pain laterality Start: 11-21-2024 End: 11-21-2024 Telemedicine consultation with patient Gregor Rebecca PPA TEACHER.[employer] CLAIM EXAMINER Work Phone: [employer] [facility] Start: 11-20-2024 End: 11-24-2024 Telephone encounter Yoseph Fall MD Work Phone: [facility] [place] Comment on above: Patient Update Start: 11-10-2024 End: 11-13-2024 Telephone encounter Yoseph Fall MD Work Phone: [facility] [place] Comment on above: Patient Request; Pat ient Update Start: 11-08-2024 End: 11-08-2024 [facility] Jesus Carter PPA TEACHER.[employer] CLAIM EXAMINER Work Phone: [employer] [facility] Comment on above: NO SHOW (Primary Dx) ; Stage 3 severe COPD by GOLD classification (HCC); Generalized osteoarthrosis, involving multiple sites; Generalized anxiety disorder; Chronic low back pain with sciatica, sciatica laterality unspecified, unspecified back pain laterality Start: 11-03-2024 End: 11-03-2024 Patient encounter procedure Lindsay Whitehead [place] -[facility] Work Phone: Start: 11-03-2024 End: 11-03-[address] Yoseph Fall MD Work Phone: -[facility] Start: 10-31-2024 End: 11-01-2024 Refill Yoseph Fall MD Work Phone: [facility] [place] Comment on above: Home Care Management ; Refill Request Start: 10-24-2024 End: 11-03-2024 Telephone encounter Yoseph Fall MD Work Phone: [facility] Comment on above: pall med- [id number]; Ini tial Consult Patient Request order question Start: 10-23-2024 End: 10-23-2024 Telephone encounter Yoseph Fall MD Work Phone: [facility] [place] Comment on above: Patient Update Start: 10-20-2024 End: 10-20-2024 Telephone encounter Yoseph Fall MD Work Phone: [facility] [place] Comment on above: Patient Update; Medi cation Request Start: 10-19-2024 End: 10-20-2024 Telephone encounter Yoseph Fall MD Work Phone: [facility] [place] Comment on above: Patient Update Start: 10-18-2024 End: 10-20-2024 Telephone encounter Yoseph Fall MD Work Phone: [facility] [place] Comment on above: Orders; Occupation T herapy Plan of care (SW Consult); Physical Therapy Plan of Care Start: 10-17-2024 End: 10-17-2024 ambulatory YOSEPH FALL Facility:[facility] Start: 10-17-2024 End: 10-17-2024 Transitional care manage srvc 14 day discharge Yoseph Fall MD Work Phone: [facility] Comment on above: Stage 3 severe COPD by GOLD classification (HCC) (Primary Dx); Chronic low back pain with sciatica, sciatica laterality unspecified, unspecified back pain laterality; Essential hypertension, benign; Tobacco use disorder; Generalized anxiety disorder; Aortic valve stenosis, etiology of cardiac valve disease unspecified Start: 10-13-2024 End: 10-13-2024 Telephone encounter Yoseph Fall MD Work Phone: [facility] Comment on above: PT Delay in Care Ord er Start: 10-12-2024 End: 10-17-2024 Refill Yoseph Fall MD Work Phone: [facility] Comment on above: Refill Request Start: 10-11-2024 End: 10-12-2024 Refill Yoseph Fall MD Work Phone: [facility] Comment on above: Refill Request Start: 10-10-2024 End: 10-12-2024 ambulatory Naima Haines [facility] [place] Start: 10-10-2024 End: 10-12-2024 Telephone encounter Yoseph Fall MD Work Phone: [facility] Comment on above: [facility] patient updat e Transition Of Care Start: 10-09-2024 Non-patient / Non-visit Dr. Alessandro Palma MD -[facility] Work Phone: Start: 10-09-2024 End: 10-10-2024 Telephone encounter Yoseph Fall MD Work Phone: [facility] Comment on above: Patient Update Orders Medication Problem; Patient Update Start: 10-08-2024 Non-patient / Non-visit Dr. Lynne Schafer MD -[facility] Work Phone: Start: 10-07-2024 Non-patient / Non-visit Dr. Lynne Schafer MD [facility] Work Phone: Start: 10-07-2024 Non-patient / Non-visit Dr. Michael Plasencia MD -[facility] Start: 10-06-2024 Non-patient / Non-visit Dr. Lynne Schafer MD [facility] Work Phone: Start: 10-06-2024 Non-patient / Non-visit Dr. Michael Plasencia MD [facility] Start: 10-05-2024 Non-patient / Non-visit Dr. Lynne Schafer MD [facility] Work Phone: Start: 10-04-2024 Non-patient / Non-visit Dr. Lynne Schafer MD [facility] Work Phone: Start: 10-04-2024 Non-patient / Non-visit Dr. Junito Madrid MD [facility] Start: 10-03-2024 Non-patient / Non-visit Dr. Lynne Schafer MD [facility] Work Phone: Start: 10-03-2024 Non-patient / Non-visit Dr. Junito Madrid MD [facility] Start: 10-02-20[facility] Start: 10-02-2024 Non-patient / Non-visit Dr. Dillon geiger MD [facility] Start: 10-02-2024 Non-patient / Non-visit Dr. Lynne Schafer MD [facility] Work Phone: Start: 10-01-2024 Non-patient / Non-visit Dr. April Bolanos MD [facility] Work Phone: Start: 09-30-2024 Non-patient / Non-visit Dr. April Bolanos MD [facility] Work Phone: Start: 09-29-2024 ambulatory Dionne Porter Facility :[facility] Start: 09-29-2024 End: 10-09-2024 Evaluation and management of inpatient Dr. Alessandro Palma MD -[facility] Work Phone: Start: 09-29-2024 Evaluation and management of inpatient Dr. Dionne Porter MD -[facility] Work Phone: Start: 09-29-[address] Yoseph Fall MD Work Phone: [facility] Work Phone: Start: 09-29-2024 ambulatory Dionne Porter Facility :[facility] Start: 09-29-2024 Non-patient / Non-visit Dr. Dionne Porter MD [facility] Work Phone: Start: 09-28-2024 End: 09-28-2024 Refill Yoseph Fall MD Work Phone: [facility] Comment on above: Refill Request Start: 08-29-2024 End: 08-29-2024 Refill Yoseph Fall MD Work Phone: [address] [place] [address] Comment on above: Refill Request Start: 08-15-2024 End: 08-15-2024 Refill Yoseph Fall MD Work Phone: [facility] Comment on above: Refill Request Start: 07-24-2024 End: 07-24-2024 Telephone encounter Yoseph Fall MD Work Phone: [facility] Comment on above: Patient Update; Medi cation Request Start: 07-12-2024 End: 07-12-2024 Telephone encounter Yoseph Fall MD Work Phone: [facility] Comment on above: Chart Notes Start: 07-06-2024 End: 07-06-2024 Distance Health Yoseph Fall MD Work Phone: [facility] Comment on above: Chronic obstructive pulmonary disease, unspecified COPD type (HCC) (Primary Dx); Chronic low back pain with sciatica, sciatica laterality unspecified, unspecified back pain laterality; Essential hypertension, benign; Generalized anxiety disorder; Depression, unspecified depression type; Gastroesophageal reflux disease without esophagitis; Thrush, oral; Tobacco use disorder; Screening for colon cancer Start: 06-22-2024 End: 06-22-2024 Refill Yoseph Fall MD Work Phone: [facility] Comment on above: Refill Request Start: 06-19-2024 End: 06-19-2024 Refill Yoseph Fall MD Work Phone: [facility] [place] Comment on above: Refill Request Start: 06-12-2024 End: 06-12-2024 Telephone encounter Yoseph Fall MD Work Phone: [facility] [place] Comment on above: Forms ([employer]) Start: 06-02-2024 End: 06-07-2024 Telephone encounter Yoseph Fall MD Work Phone: [facility] [place] Comment on above: Insurance Authorizat ion Start: 06-01-2024 End: 06-01-2024 Refill Yoseph Fall MD Work Phone: [facility] [place] Comment on above: Refill Request; Medi cation Problem ([place]) Start: 05-16-2024 End: 06-16-2024 Refill Yoseph Fall MD Work Phone: [facility] [place] Comment on above: Refill Request Start: 04-10-2024 End: 04-10-2024 Refill Yoseph Fall MD Work Phone: [facility] [place] Comment on above: Refill Request Start: 04-07-2024 End: 04-07-2024 Distance Health Yoseph Fall MD Work Phone: [facility] [place] Comment on above: Chronic low back geoffrey n with sciatica, sciatica laterality unspecified, unspecified back pain laterality (Primary Dx); Essential hypertension, benign; Generalized anxiety disorder; Depression, unspecified depression type; Gastroesophageal reflux disease without esophagitis Start: 03-21-2024 End: 03-22-2024 Telephone encounter Yoseph Fall MD Work Phone: [facility] [place] Comment on above: Patient Question Start: 03-20-2024 End: 03-20-2024 Refill Yoseph Fall MD Work Phone: [facility] [place] Comment on above: Refill Request Start: 03-03-2024 End: 03-03-2024 Refill Yoseph Fall MD Work Phone: [facility] [place] Comment on above: Refill Request Start: 02-14-2024 End: 02-14-2024 Refill Yoseph Fall MD Work Phone: [facility] [place] Comment on above: Refill Request Start: 02-03-2024 End: 02-04-2024 Telephone encounter Yoseph Fall MD Work Phone: [facility] [place] Comment on above: Patient Question Start: 01-18-2024 End: 01-18-2024 Refill Yoseph Fall MD Work Phone: [facility] [place] Comment on above: Refill Request Start: 12-24-2023 End: 12-24-2023 Refill Yoseph Fall MD Work Phone: [facility] [place] Comment on above: Refill Request Start: 11-29-2023 End: 11-29-2023 Distance Health Yoseph Fall MD Work Phone: [facility] [place] Comment on above: Stage 3 severe COPD by GOLD classification (HCC) (Primary Dx); Generalized osteoarthrosis, involving multiple sites; Chronic low back pain with sciatica, sciatica laterality unspecified, unspecified back pain laterality; Essential hypertension, benign; Tobacco use disorder; Dysthymic disorder Start: 11-16-2023 Refill Yoseph emmanuel MD Work Phone: [facility] [place] Comment on above: Refill Request Start: 11-08-2023 Telephone encounter Yoseph lei MD Work Phone: [facility] [place] Comment on above: Insurance Authorizat ion Start: 11-05-2023 Refill Yoseph emmanuel MD Work Phone: [facility] [place] Comment on above: Refill Request Start: 10-22-2023 Telephone encounter Yoseph lei MD Work Phone: [address] [place] [address] Comment on above: Medication Request ( Requesting antibiotic) Start: 10-18-2023 Refill Yoseph emmanuel MD Work Phone: [facility] [place] Comment on above: Refill Request Start: 10-01-2023 Telephone encounter Yoseph lei MD Work Phone: [facility] Comment on above: Medication Problem Start: 09-22-2023 Refill Yoseph emmanuel MD Work Phone: [facility] Comment on above: Refill Request Start: 09-15-2023 Refill Yoseph emmanuel MD Work Phone: [facility] Comment on above: Refill Request Start: 08-23-2023 End: 08-23-2023 Distance Health Yoseph Fall MD Work Phone: [facility] Comment on above: Stage 3 severe COPD by GOLD classification ([facility]) (Primary Dx); Essential hypertension, benign; Cigarette smoker; Generalized anxiety disorder; Chronic low back pain with sciatica, sciatica laterality unspecified, unspecified back pain laterality Start: 07-27-2023 Refill Yoseph emmanuel MD Work Phone: [facility] Comment on above: Refill Request Start: 07-26-2023 End: 07-26-2023 Patient Outreach Yoseph Fall MD Work Phone: [facility] Comment on above: Transition Of Care Obstructive chronic bronchitis with exacerbation (HCC) (Primary Dx); Stage 3 severe COPD by GOLD classification ([facility]); Cigarette smoker; Chronic respiratory failure with hypoxia (HCC) Start: 07-22-2023 Non-patient / Non-visit Dr. Jos Fall Work Phone: [facility] Work Phone: Start: 07-21-2023 Non-patient / Non-visit Dr. Jos Fall Work Phone: [facility] Work Phone: Start: 07-20-2023 End: 07-22-2023 Evaluation and management of inpatient [facility] Work Phone: Start: 07-19-2023 Telephone encounter Yoseph lei MD Work Phone: [facility] Comment on above: Medication Request; Cough Start: 06-28-2023 Refill Yoseph emmanuel MD Work Phone: [facility] [place] Comment on above: Med Change Request Start: 06-17-2023 Telephone encounter Yoseph lei MD Work Phone: [facility] Comment on above: Forms ([employer] re: incontinence supplies) Start: 06-16-2023 ambulatory Yoseph emmanuel MD Work Phone: [facility] [place] Start: 06-15-2023 Telephone encounter Yoseph lei MD Work Phone: [facility] [place] Comment on above: Mouth/Lip Problem Start: 06-14-2023 Telephone encounter Yoseph lei MD Work Phone: [facility] [place] Comment on above: Insurance Authorizat ion Start: 06-11-2023 Refill Yoseph emmanuel MD Work Phone: [facility] [place] Comment on above: Refill Request Start: 03-30-2023 Telephone encounter Yoseph lei MD Work Phone: [facility] [place] Start: 03-17-2023 Refill Yoseph emmanuel MD Work Phone: [facility] [place] Comment on above: Refill Request Start: 02-19-2023 End: 02-19-2023 Patient encounter procedure Yoseph Fall MD Work Phone: [facility] [place] Comment on above: Chronic low back geoffrey n with sciatica, sciatica laterality unspecified, unspecified back pain laterality (Primary Dx); Generalized osteoarthrosis, involving multiple sites; Generalized anxiety disorder; Depression, unspecified depression type; Essential hypertension, benign; Elevated glucose; Stage 3 severe COPD by GOLD classification ([facility]); Gastroesophageal reflux disease, unspecified whether esophagitis present; Chronic obstructive pulmonary disease, unspecified COPD type ([facility]); Uncomplicated asthma, unspecified asthma severity, unspecified whether persistent; Tobacco use disorder; Need for influenza vaccination; Encounter for medication monitoring Start: 01-15-2023 Refill Yoseph emmanuel MD Work Phone: [facility] [place] Comment on above: Refill Request Start: 12-29-2022 Refill Yoseph emmanuel MD Work Phone: [facility] [place] Comment on above: Refill Request Start: 12-10-2022 Telephone encounter Yoseph lei MD Work Phone: [facility] [place] Comment on above: Orders Start: 11-06-2022 Refill Nelson BOWMAN RN.[employer] CLAIM [employer]AMINER Work Phone: [facility] [place] Comment on above: Refill Request Start: 11-05-2022 Refill Nelson BOWMAN RN.[employer] CLAIM EXAMINER Work Phone: [facility] [place] Comment on above: Refill Request Start: 08-21-2022 Telephone encounter Yoseph lei MD Work Phone: [facility] [place] Comment on above: Patient Request Start: 07-02-2022 Telephone encounter Yoseph lei MD Work Phone: [facility] [place] Comment on above: Forms (Incontinence supply form) Start: 06-29-2022 Refill Yoseph emmanuel MD Work Phone: [facility] [place] Comment on above: Refill Request Start: 06-08-2022 Refill Yoseph emmanuel MD Work Phone: [facility] [place] Comment on above: Refill Request Start: 05-15-2022 Refill Yoseph emmanuel MD Work Phone: [facility] [place] Comment on above: Refill Request Start: 05-05-2022 Refill Yoseph emmanuel MD Work Phone: [facility] [place] Comment on above: Refill Request Start: 05-01-2022 End: 05-01-2022 Distance Health Yoseph Fall MD Work Phone: [facility] [place] Comment on above: Stage 3 severe COPD by GOLD classification ([facility]) (Primary Dx); Chronic low back pain with sciatica, sciatica laterality unspecified, unspecified back pain laterality; Chronic respiratory failure with hypoxia ([facility]); Essential hypertension, benign; Generalized anxiety disorder; Tobacco use disorder Start: 04-21-2022 Refill Yoseph emmanuel MD Work Phone: [facility] [place] Comment on above: Refill Request Start: 02-27-2022 Telephone encounter Mercedez Zarate PA-C Work Phone: [facility] Comment on above: Orders Start: 02-20-2022 End: 02-20-2022 ambulatory Respiratory Therapist [facility] Work Phone: [facility] Comment on above: Spirometry Start: 02-20-2022 End: 02-20-2022 Patient encounter procedure Respiratory Therapist [facility] Work Phone: [place] [facility] Start: 01-20-2022 Refill Yoseph emmanuel MD Work Phone: [facility] [place] Comment on above: Refill Request Start: 01-13-2022 Orders Only Michelle Guzmán MD Work Phone: [facility] Comment on above: Chronic obstructive pulmonary disease, unspecified COPD type (HCC) (Primary Dx) Start: 01-08-2022 Telephone encounter Michelle Guzmán MD Work Phone: [facility] Comment on above: Orders Start: 12-18-2021 Refill Yoseph emmanuel MD Work Phone: [facility] [place] Comment on above: Refill Request Start: 11-17-2021 Refill Yoseph emmanuel MD Work Phone: [facility] [place] Comment on above: Refill Request Start: 10-17-2021 End: 10-17-2021 Distance Health Yoseph Fall MD Work Phone: [facility] [place] Comment on above: Chronic obstructive pulmonary disease, unspecified COPD type (HCC) (Primary Dx); Chronic low back pain with sciatica, sciatica laterality unspecified, unspecified back pain laterality; Essential hypertension, benign; Uncomplicated asthma, unspecified asthma severity, unspecified whether persistent; Generalized anxiety disorder Start: 09-30-2021 Refill Yoseph emmanuel MD Work Phone: [facility] [place] Comment on above: Refill Request Start: 09-15-2021 Refill Yoseph emmanuel MD Work Phone: [facility] [place] Comment on above: Refill Request Start: 08-27-2021 Refill Yoseph emmanuel MD Work Phone: [facility] [place] Comment on above: Refill Request Start: 08-18-2021 Refill Yoseph emmanuel MD Work Phone: [facility] Comment on above: Refill Request Start: 08-01-2021 Orders Only Yoseph emmanuel MD Work Phone: [facility] [place] Comment on above: Essential hypertensi on, benign (Primary Dx); Elevated glucose Procedures Date Procedure Procedure Detail Performing Clinician Start: 01-05-2025 Cardiac catheterization study Zaria lyn MD Work Phone: Start: 12-30-[address] Yoseph Fall MD Work Phone: Start: 12-28-[address] Yoseph plascencia MD Work Phone: Start: 12-27-[address] Yoseph Fall MD Work Phone: Start: 12-27-2024 Total iron binding capacity measurement Dr. Yoseph Fall MD Work Phone: Start: 12-26-[address] Yoseph plascencia MD Work Phone: Start: 12-26-2024 Carbon dioxide [...] Yoseph Fall MD Work Phone: Start: 12-26-[address] Yoseph edward MD Work Phone: Start: 12-26-[address] Yoseph Fall MD Work Phone: Start: 12-26-[address] Yoseph anderson MD Work Phone: Start: 12-15-2024 Comprehensive metabolic panel Zaria lyn MD Work Phone: Start: 12-15-2024 Ecg routine ecg w/least 12 lds trcg only w/o i&r Zaria Shea MD Work Phone: Start: 10-09-[address] Yoseph Fall MD Work Phone: Start: 09-29-[address] Yoseph edward MD Work Phone: Start: 09-29-[address] Yoseph Fall MD Work Phone: Start: 09-29-[address] Yoseph anderson MD Work Phone: Start: 09-29-2024 SARS-CoV-2, Influenza & RSV (PCR) Dr. Jos Fall MD Work Phone: Start: 09-29-2024 Carbon [...] - S avelino or Plasma Lipid Screening [facility] Start: 02-20-2028 Lipid panel [facility] Start: 02-19-2026 Diabetes Screening Diabetes Screenin g [facility] Start: 10-17-2025 Annual PCP Team [employer] yakov Disease Visit Annual PCP Team Chronic Disease Visit [facility] Start: 07-06-2025 Annual PCP Team [employer] Guard yakov Disease Visit Annual PCP Team Chronic Disease Visit [facility] Start: 07-06-2025 Screening for malign ant neoplasm of breast Mammogram Screening [facility] Comment on above: Postponed from 10/16 (Declined at this time) Start: 04-07-2025 Annual PCP Team [employer] yakov Disease Visit Annual PCP Team Chronic Disease Visit [facility] Start: 01-23-2025 End: 01-23-2025 ambulatory 01/23/2025 9:00 AM EDT [facility] [address] [place] [id number] Gregor Fernandez APRN.[facility] [address] [place] [id number] 2 month@2month [employer] Comment on above: [id number] 2 month@2month Start: 01-19-2025 End: 01-19-2025 Follow-up encounter 01/19/2025 2:20 PM EDT LYFE Kitchen [facility] [place] [address] [place], [place] [phone] Yoseph Fall MD [address] [place], [place] [id number] CALL PT 3 month follow up [facility] [place] Comment on above: CALL PT 3 month foll ow up Start: 01-19-2025 End: 01-19-2025 Patient encounter procedure [facility] Comment on above: 3 month follow up 3 month follow up/ p rocedure follow up of heart cath-[facility] 01/05/25 Start: 01-05-2025 End: 01-05-2026 Basic metabolic 1998 panel - Serum or Plasma Basic metabolic panel Lab Routine Aortic valve stenosis, etiology of cardiac valve disease unspecified Expected: 01/05/2025 (Approximate), Expires: 01/05/2026 [facility] Work Phone: Comment on above: Expected: 01/05/2025 (Approximate), Expires: 01/05/2026 Start: 01-05-2025 End: 01-05-2025 Admission to same day surgery center 01/05/2025 10:00 AM EDT - 01/05/2025 11:00 AM EDT Surgery [facility] [address] [place] [phone] Zaria Shea MD [address] [place] [address] Left and right heart cath / coronary angiography [facility] Comment on above: Left and right heart cath / coronary angiography Start: 01-05-2025 Subsequent hospital visit by physician 01/05/2025 10:00 AM EDT Hospital Encounter [facility] [address] [place] [phone] Zaria Shea MD [address] [place] [address] Preop cardiovascular exam [facility] Comment on above: Preop cardiovascular exam Start: 12-30-[address] [facility] Start: 12-28-2024 Referral to service [facility] Start: 12-27-2024 Referral to gastroenterology service [facility] Start: 12-27-2024 [facility] Start: 12-27-2024 Referral to service [facility] Start: 12-27-2024 Palliative care [facility] Start: 12-26-2024 Following clinical p athway protocol [facility] Start: 12-26-2024 Application of intermittent pneumatic compression device [facility] Start: 12-26-2024 Assessment of risk o f venous thromboembolism [facility] Start: 12-26-2024 Continuous pulse oximetry [facility] Start: 12-26-2024 Fall prevention [facility] Start: 12-26-2024 Inhalation therapy procedure [facility] Start: 12-26-2024 Insertion of cathete r into peripheral vein [facility] Start: 12-26-2024 Introduction of urin asher catheter [facility] Start: 12-26-2024 Measuring intake and output [facility] Start: 12-26-2024 Oxygen therapy [facility] Start: 12-26-2024 Physiotherapy of chest [facility] Start: 12-26-2024 Providing care accor ding to standard [facility] Start: 12-26-2024 Provision of activit y privileges [facility] Start: 12-26-2024 Referral to service [facility] Start: 12-26-2024 [facility] Start: 12-26-2024 Dual pressure sponta neous ventilation support [facility] Start: 12-26-2024 Gas panel - Arterial blood [facility] Start: 12-26-2024 Measurement of occul t blood in stool specimen using immunoassay [facility] Start: 12-26-2024 Verification routine [facility] Start: 12-26-2024 Admission procedure [facility] Start: 12-26-2024 Hospital admission, emergency, from emergency room, medical nature [facility] Start: 12-26-2024 End: 12-26-2024 [facility] Start: 12-25-2024 COVID-19 Vaccine ( season) COVID-19 Vaccine ( season) [facility] Start: 12-25-2024 Influenza vaccination [facility] Start: 12-22-2024 Subsequent hospital visit by physician 12/22/2024 Hospital Encounter [facility] [address] [place] [phone] Zaria Shea MD [address] [place] [id number] [facility] Start: 12-15-2024 End: 12-15-2024 Patient encounter procedure [facility] Start: 11-28-2024 Annual PCP Team [employer] Guard yakov Disease Visit Annual PCP Team Chronic Disease Visit [facility] Start: 11-23-2024 End: 11-23-2024 ambulatory 11/23/2024 9:00 AM EDT [facility] [address] [place] [address] [address] [place] [phone] Gregor Fernandez APRN.[employer]AMINER [address] [place], [place] [id number] confirmed 11/21/24 [facility] Comment on above: [id number] confirmed 10/25 01/18 mp Start: 11-08-2024 End: 11-08-2024 ambulatory 11/08/2024 2:30 PM EDT [facility] [address] [address] Jesus Carter, PPA TEACHER.MARINE INSURANCE CLAIM EXAMINER [address] [place] [id number] [facility] Comment on above: [id number] Start: 10-17-2024 End: 10-17-2024 Patient encounter procedure 10/17/2024 2:20 PM EDT Office Visit [facility] [place] [address] [place] [address] Yoseph Fall MD [address] [place], [place] [phone] Discharged 10/09/24 [facility] - COPD exacerbation [facility] Comment on above: Discharged 10/09/24 W - COPD exacerbation Start: 10-09-[address] [facility] Start: 10-06-2024 End: 10-06-2024 Referral to service [facility] Start: 10-04-2024 Referral to occupati onal therapist [facility] Start: 10-04-2024 Referral to service [facility] Start: 10-03-2024 Care planning and pr oblem solving actions [facility] Start: 10-03-2024 [facility] Start: 10-02-2024 Care planning and pr oblem solving actions [facility] Start: 10-02-2024 Referral to cat scan technologist [facility] Start: 10-02-2024 [facility] Start: 09-29-2024 Admission procedure [facility] Start: 09-29-2024 Following clinical p athway protocol [facility] Start: 09-29-2024 Assessment of risk o f venous thromboembolism [facility] Start: 09-29-2024 Inhalation therapy procedure [facility] Start: 09-29-2024 Insertion of cathete r into peripheral vein [facility] Start: 09-29-2024 Introduction of urin asher catheter [facility] Start: 09-29-2024 Measuring intake and output [facility] Start: 09-29-2024 Oxygen therapy [facility] Start: 09-29-2024 Providing care accor ding to standard [facility] Start: 09-29-2024 Provision of activit y privileges [facility] Start: 09-29-2024 Referral to service [facility] Start: 09-29-2024 [facility] Start: 09-29-2024 Respiratory pathogen s DNA and RNA panel - Respiratory specimen by ASPEN with probe detection [facility] Start: 09-29-2024 Verification routine [facility] Start: 09-29-2024 Admission procedure [facility] Start: 09-29-2024 Hospital admission, emergency, from emergency room, medical nature [facility] Start: 08-22-2024 Annual PCP Team Customs Guard yakov Disease Visit Annual PCP Team Chronic Disease Visit [facility] Start: 07-25-2024 Annual PCP Team Customs Guard yakov Disease Visit Annual PCP Team Chronic Disease Visit [facility] Start: 07-12-2024 DIABETES SCREEN DIABETES SCREEN [facility] Start: 07-12-2024 Diabetes Screening Diabetes Screenin g [facility] Start: 07-06-2024 End: 07-06-2024 ambulatory 07/06/2024 2:00 PM EDT [facility] [address] [place] [address] Yoseph Fall MD [address] [facility] [place] [id number] 3 mo f/u - Phone visit [facility] Comment on above: 3 mo f/u - Phone vis it Start: 05-24-2024 Annual PCP Team [employer] Guard yakov Disease Visit Annual PCP Team Chronic Disease Visit [facility] Start: 04-26-2024 Advance Directive Discussion Advance Directive Discussion [facility] Start: 04-26-2024 Medicare Advantage A nnual Wellness Visit Medicare Advantage Annual Wellness Visit [facility] Start: 04-07-2024 End: 04-07-2024 Telephone follow-up 04/07/2024 8:[address] [facility] [place] [address] [place] [address] Yoseph Fall MD [address] [place] [phone] phone call 4 month follow up [facility] [place] Comment on above: phone call 4 month f ollow up Start: 02-20-2024 Annual PCP Team [employer] Guard yakov Disease Visit Annual PCP Team Chronic Disease Visit [facility] Start: 02-20-2024 Diabetes mellitus screening Diabetes Screening [facility] Start: 02-09-2024 Lipid 1996 panel - S avelino or Plasma Lipid Screening [facility] Start: 02-09-2024 LIPID SCREEN LIPID SCREEN [facility] Start: 01-25-2024 Colorectal Cancer Screening Colorectal Cancer Screening [facility] Start: 01-25-2024 Fecal Occult Blood Fecal Occult Bloo d [facility] Start: 01-25-2024 Screening for malign ant neoplasm of colon [facility] Start: 12-26-2023 Covid-19 Vaccine ( season) Covid-19 Vaccine () [facility] Start: 12-26-2023 Influenza vaccination Influenza Vacc ine (#1) [facility] Start: 11-29-2023 End: 11-29-2023 Telephone follow-up 11/29/2023 5:40 PM EDT [facility] [address] [place] [address] Yoseph Fall MD [address] [place], [place] [phone] phone call-3 month follow up [facility] Comment on above: phone call-3 month f ollow up Start: 11-23-2023 End: 11-23-2023 Telephone follow-up 11/23/2023 3:00 PM EDT [facility] [address] [place] [address] Yoseph Fall MD [address] [place] [address] phone call-3 month follow up [facility] Comment on above: phone call-3 month f ollow up Start: 11-14-2023 ANNUAL PCP TEAM SURVEYOR HYDROGRAPHIC YAKOV DISEASE VISIT ANNUAL PCP TEAM CHRONIC DISEASE VISIT [facility] Start: 10-25-2023 DTaP/Tdap/Td Vaccine s (2 - Td or Tdap) DTaP/Tdap/Td Vaccines (2 - Td or Tdap) [facility] Start: 10-25-2023 Urine microalbumin profile [facility] Start: 08-08-2023 ANNUAL PCP TEAM SURVEYOR HYDROGRAPHIC YAKOV DISEASE VISIT ANNUAL PCP TEAM CHRONIC DISEASE VISIT [facility] Start: 07-22-[address] [facility] Start: 07-21-2023 Respiratory microbia l culture Respiratory Culture [facility] Start: 07-20-2023 Thyroid stimulating hormone measurement [facility] Start: 07-20-2023 [facility] Start: 07-20-2023 Following clinical p athway protocol [facility] Start: 07-20-2023 Assessment of risk o f venous thromboembolism [facility] Start: 07-20-2023 Contact precautions [facility] Start: 07-20-2023 Incentive spirometry [facility] Start: 07-20-2023 Insertion of cathete r into peripheral vein [facility] Start: 07-20-2023 Measuring intake and output [facility] Start: 07-20-2023 Oxygen therapy [facility] Start: 07-20-2023 Providing care accor ding to standard [facility] Start: 07-20-2023 Provision of activit y privileges [facility] Start: 07-20-2023 Referral to service [facility] Start: 07-20-2023 Respiratory secretio n precautions [facility] Start: 07-20-2023 Respiratory therapy [facility] Start: 07-20-2023 Tobacco use cessatio n education [facility] Start: 07-20-2023 [facility] Start: 07-20-2023 Verification routine [facility] Start: 07-20-2023 Admission procedure [facility] Start: 07-20-2023 Patient referral to dietitian [facility] Start: 05-01-2023 ANNUAL PCP TEAM SURVEYOR HYDROGRAPHIC YAKOV DISEASE VISIT ANNUAL PCP TEAM CHRONIC DISEASE VISIT [facility] Start: 04-26-2023 Advance Directive Discussion Advance Directive Discussion [facility] Start: 02-19-2023 End: 05-21-2023 CBC W Auto Differential panel - Blood [facility] Work Phone: Comment on above: Expected: 02/19/2023 , Expires: 05/21/2023 Start: 02-19-2023 End: 05-21-2023 Comprehensive metabolic 2000 panel - Serum or Plasma [facility] Work Phone: Comment on above: Expected: 02/19/2023 (Approximate), Expires: 05/21/2023 Start: 02-19-2023 End: 05-21-2023 Hemoglobin A1c in Blood [facility] Work Phone: Comment on above: Expected: 02/19/2023 , Expires: 05/21/2023 Start: 02-19-2023 End: 05-21-2023 LIPID PANEL, NONFASTING [facility] Work Phone: Comment on above: Expected: 02/19/2023 , Expires: 05/21/2023 Start: 02-19-2023 End: 05-21-2023 PAIN PANEL, UR QUANT [facility] Work Phone: Comment on above: Expected: 02/19/2023 , Expires: 05/21/2023 Start: 02-19-2023 End: 05-21-2023 TOX SCREEN ROUT UR [facility] Work Phone: Comment on above: Expected: 02/19/2023 , Expires: 05/21/2023 Start: 01-23-2023 ANNUAL PCP TEAM SURVEYOR HYDROGRAPHIC YAKOV DISEASE VISIT ANNUAL PCP TEAM CHRONIC DISEASE VISIT [facility] Start: 12-25-2022 Covid-19 Vaccine ( season) Covid-19 Vaccine ( season) [facility] Start: 12-25-2022 Influenza vaccination [facility] Start: 10-17-2022 ANNUAL PCP TEAM SURVEYOR HYDROGRAPHIC YAKOV DISEASE VISIT ANNUAL PCP TEAM CHRONIC DISEASE VISIT [facility] Start: 08-21-2022 COVID-19 VACCINE (5 - Moderna series) COVID-19 VACCINE (5 - Moderna series) [facility] Start: 07-17-2022 ANNUAL PCP TEAM SURVEYOR HYDROGRAPHIC YAKOV DISEASE VISIT ANNUAL PCP TEAM CHRONIC DISEASE VISIT [facility] Start: 07-17-2022 BP CONTROLLED (<130/80) BP CONTROLLE D (<130/80) [facility] Start: 04-26-2022 ADVANCE DIRECTIVE DISCUSSION ADVANCE DIRECTIVE DISCUSSION [facility] Start: 12-25-2021 Influenza vaccination [facility] Start: 12-12-2021 COVID-19 VACCINE (4 - Booster for Moderna series) COVID-19 VACCINE (4 - Booster for Moderna series) [facility] Start: 10-06-2021 COVID-19 VACCINE (3 - Booster for Moderna series) COVID-19 VACCINE (3 - Booster for Moderna series) [facility] Start: 08-01-2021 End: 10-01-2021 LIPID PANEL BASIC LIPID PANEL BASIC Lab Routine Essential hypertension, benign Elevated glucose Expected: 08/01/2021, Expires: 10/01/2021 [facility] Work Phone: Comment on above: Expected: 08/01/2021 , Expires: 10/01/2021 Start: 07-03-2021 COVID-19 VACCINE (3 - Booster for Moderna series) COVID-19 VACCINE (3 - Booster for Moderna series) [facility] Start: 2020 BONE DENSITY BONE DENSITY [facility] Start: 2020 Bone Density Screening Bone Density Screening [facility] Start: 2020 Screening for osteoporosis Bone Dens ity Screening [facility] Start: 02-14-2020 COLORECTAL CANCER SCREENING COLORECTAL CANCER SCREENING [facility] Start: 02-14-2020 FECAL OCCULT BLOOD FECAL OCCULT BLOO D [facility] Start: 10-16-2016 Mammography [facility] Start: 10-16-2016 Screening for malign ant neoplasm of breast Mammogram Screening [facility] Start: 10-24-2015 PAP TESTING PAP TESTING [facility] Start: 10-24-2015 Screening for malign ant neoplasm of cervix [facility] Start: 2015 RSV Immunization for Adults (1 - Risk 60-74 years 1-dose series) RSV Immunization for Adults (1 - Risk 60-74 years 1-dose series) [facility] [facility] [employer] Start: 2015 RSV Vaccine (1 - 1-d ose 60+ series) RSV Vaccine (1 - 1-dose 60+ series) [facility] Start: 2015 RSV Vaccine (1 - Ris k 60-74 years 1-dose series) RSV Vaccine (1 - Risk 60-74 years 1-dose series) [facility] Start: 2005 SHINGRIX VACCINE (1 of 2) CASTANON GRIX VACCINE (1 of 2) [facility] Start: 2005 Zoster Vaccines (1 of 2) Zoste r Vaccines (1 of 2) [facility] Start: 2000 COLOGUARD (FIT-DNA) COLOGUARD (FIT-D NA) [facility] Start: 2000 Colonoscopy COLONOSCOPY [facility] Start: [address] COLONOGRAPHY [facility] Start: 2000 Screening for malign ant neoplasm of colon [facility] Start: 2000 SIGMOIDOSCOPY SIGMOIDOSCOPY [facility] Start: 1995 Screening for malign ant neoplasm of breast Mammogram [facility] Start: 1985 Zoledronic acid therapy ALPHA- 1 ANTITRYPSIN DEFICIENCY SCREENING [facility] Start: 1973 BP CONTROLLED (<130/80) BP CONTROLLE D (<130/80) [facility] Start: 1973 Diabetes mellitus screening Diabetes Screening [facility] Start: 1973 Hepatitis C screening Hepatitis C Sc reening [facility] Start: 1967 Depression Monitoring Depression Mon itoring [facility] Start: 1955 Screening for malign ant neoplasm of colon [facility] Start: 1955 Screening for osteoporosis Bone Dens ity Scan [facility] Alanine aminotransfe rase [Enzymatic activity/volume] in Serum or Plasma [facility] Albumin [Mass/volume ] in Serum or Plasma [facility] Alkaline phosphatase [Enzymatic activity/volume] in Serum or Plasma [facility] Anion gap measurement [facility] Aspartate aminotrans ferase [Enzymatic activity/volume] in Serum or Plasma [facility] Bilirubin, total measurement [facility] BUN/Creatinine ratio [facility] Calcium [Mass/volume ] in Serum or Plasma [facility] Carbon dioxide, tota l [Moles/volume] in Serum or Plasma [facility] Cardiac catheterizat ion study Cardiac procedure CV Cardiac Cath Routine Preop cardiovascular exam 01/05/2025 12:21 PM EDT [facility] Work Phone: Chloride [Moles/volu me] in Serum or Plasma [facility] COLOGUARD COLOGUARD Lab Ro utine Screening for colon cancer Ordered: 07/06/2024 [facility] Work Phone: Comment on above: Ordered: 07/06/2024 Creatinine [Moles/vo lume] in Serum or Plasma [facility] End: 06-15-2025 DBT Breast - bilateral screening MICKIE SCREENING W RASHAUN Radiology Routine Encounter for screening mammogram for breast cancer 1 Occurrences starting 05/16/2024 until 06/15/2025 [facility] Work Phone: Comment on above: 1 Occurrences starti ng 05/16/2024 until 06/15/2025 ECG 12 lead - CLINIC PERFORMED ECG 12 lead - CLINIC PERFORMED CV ECG Routine Preop cardiovascular exam 12/15/2024 2:38 PM EDT [facility] Work Phone: Erythrocyte mean corpuscular volume determination [facility] Ferritin [Mass/volum e] in Serum or Plasma [facility] Glucose [Mass/volume ] in Serum or Plasma [facility] Hematocrit [Volume Fraction] of Blood [facility] Hemoglobin [Mass/vol ume] in Blood [facility] Iron [Mass/mass] in Unspecified specimen [facility] Iron saturation [Mas s Fraction] in Serum or Plasma [facility] LEFT AND RIGHT HEART CATH / CORONARY ANGIOGRAPHY LEFT AND RIGHT HEART CATH / CORONARY ANGIOGRAPHY Preop cardiovascular exam [facility] Leukocytes [#/volume ] in Blood [facility] Magnesium [Mass/volu me] in Serum or Plasma [facility] Magnesium measurement [facility] Mean corpuscular hemoglobin concentration determination [facility] Mean corpuscular hemoglobin determination [facility] Measurement of renal function [facility] End: 07-15-2024 MG Breast Screening MICKIE SCREENING Radiology Routine Encounter for screening mammogram for breast cancer 1 Occurrences starting 06/16/2023 until 07/15/2024 [facility] Work Phone: Comment on above: 1 Occurrences starti ng 06/16/2023 until 07/15/2024 Neutrophil count [facility] Neutrophil percent differential count [facility] End: 02-12-2023 OXIMETRY WITH AMBULATION OXIMETRY WITH AMBULATION PFT Routine Chronic obstructive pulmonary disease, unspecified COPD type (HCC) 1 Occurrences starting 01/13/2022 until 02/12/2023 [facility] Work Phone: Comment on above: 1 Occurrences starti ng 01/13/2022 until 02/12/2023 Patient Education Anemia COPD Co ntrolled Breathing Dc [facility] Work Phone: Patient referral [facility] Work Phone: Platelets [#/volume] in Blood [facility] Potassium [Moles/vol ume] in Serum or Plasma [facility] Red blood cell count [facility] Red cell distributio n width determination [facility] Respiratory pathogen s DNA and RNA panel - Respiratory specimen by ASPEN with probe detection [facility] Serum inorganic phos phate measurement [facility] Sodium [Moles/volume ] in Serum or Plasma [facility] Total iron binding capacity measurement [facility] Total protein measurement [facility] TRANSCATHETER AORTIC VALVE REPLACEMENT (TAVR) TRANSCATHETER AORTIC VALVE REPLACEMENT (TAVR) Aortic valve stenosis, etiology of cardiac valve disease unspecified [facility] Troponin T.cardiac [Mass/volume] in Serum or Plasma by High sensitivity method [facility] Urea nitrogen [Mass/volume] in Serum or Plasma [facility] Immunizations Immunization Date Immunization Notes Care Provider Sasha ibanez 02-19-2023 influenza (HD-IIV4) vaccine, age 65+ yr, high dose, quadrivalent, PF (FLUZONE HIGH-DOSE) Yoseph Fall MD Work Phone: [facility] 02-19-2023 influenza virus vacc ine, unspecified formulation Yoseph Fall MD Work Phone: [facility] 07-17-2021 pneumococcal polysaccharide vaccine, 23 valent Yoseph Fall MD Work Phone: [facility] 02-08-2019 influenza, injectabl e, quadrivalent, contains preservative Yoseph Fall MD Work Phone: [facility] 02-08-2019 influenza virus vacc ine, unspecified formulation Yoseph Fall MD Work Phone: [facility] 05-11-2018 influenza, injectabl e, quadrivalent, contains preservative Yoseph Fall MD Work Phone: [facility] 09-24-2017 pneumococcal conjuga te vaccine, 13 valent Yoseph Fall MD Work Phone: [facility] 02-25-2016 influenza, seasonal, injectable Yoseph Fall MD Work Phone: [facility] Work Phone: 10-24-2013 tetanus toxoid, redu ani diphtheria toxoid, and acellular pertussis vaccine, adsorbed Yoseph Fall MD Work Phone: [facility] 10-22-2013 tetanus toxoid, redu ani diphtheria toxoid, and acellular pertussis vaccine, adsorbed [facility] 03-13-2013 influenza virus vacc ine, unspecified formulation Yoseph Fall MD Work Phone: [facility] 03-09-2013 Influenza virus vaccine [facility] 03-21-2012 pneumococcal polysaccharide vaccine, 23 valent Yoseph Fall MD Work Phone: [facility] 03-21-2012 pneumococcal vaccine , unspecified formulation [facility] 03-17-2010 pneumococcal polysaccharide vaccine, 23 valent Yoseph Fall MD Work Phone: [facility] Work Phone: 03-03-2010 influenza virus vacc ine, unspecified formulation Yoseph Fall MD Work Phone: [facility] 02-10-2008 influenza virus vacc ine, unspecified formulation Yoseph Fall MD Work Phone: [facility] 03-22-2007 influenza virus vacc ine, unspecified formulation Yoseph Fall MD Work Phone: [facility] Work Phone: 04-14-2005 influenza virus vacc ine, unspecified formulation Yoseph Fall MD Work Phone: [facility] Work Phone: 04-13-2005 pneumococcal polysaccharide vaccine, 23 valent Yoseph Fall MD Work Phone: [facility] Work Phone: Payers Date Payer Category Payer Self-pay [id number] 2024 Unknown [id number] 2017 Medicaid [id number] 2017 Medicare [id number] 2017 Medicare [id number] 2017 Medicare (Managed Care) [facility] [id number] 2017 Medicare HMO [id number] 2015 Unknown [id number] Unknown [id number] 2.840.1.731970.3.579.2. 462 Unknown [id number] .0.1.267223.3.579.2. 462 Unknown [id number] 2.16.840.1.609945.3.579.2. 462 Unknown [id number] 2.16.840.1.003207.3.579.2. 462 Unknown [id number] 2.16.840.1.791568.3.579.2. 462 Unknown [id number] 2.16.840.1.584796.3.579.2. 462 Unknown [id number] 2.16.840.1.312726.3.579.2. 462 Unknown [id number] 2.16.840.1.693838.3.579.2. 462 Unknown [id number] 2.840.1.104579.3.579.2. 462 Unknown [id number] 2.840.1.983942.3.579.2. 462 Unknown [id number] 2.840.1.803516.3.579.2. 462 Unknown [id number] 2.840.1.407062.3.579.2. 462 Unknown [id number] 2.16840.1.462050.3.579.2. 462 Unknown [id number] 2.16.840.1.909408.3.579.2. 462 Unknown [id number] 2.16.840.1.770575.3.579.2. 462 Unknown [id number] 2.16840.1.847109.3.579.2. 462 Unknown [id number] 2.16.840.1.092818.3.579.2. 462 Unknown [id number] 2.16840.1.529015.3.579.2. 462 Unknown [id number] 2.16.840.1.256166.3.579.2. 462 Unknown [id number] 2.16.840.1.878141.3.579.2. 462 Unknown [id number] 2.16840.1.398322.3.579.2. 462 Unknown [id number] 2.16.840.1.514757.3.579.2. 462 Unknown [id number] 2.16.840.1.771737.3.579.2. 462 Unknown [id number] 2.16.840.1.170404.3.579.2. 462 Unknown [id number] 2.16.840.1.926595.3.579.2. 462 Unknown [id number] 2.16.840.1.963431.3.579.2. 462 Unknown [id number] 2.16.840.1.298346.3.579.2. 462 Unknown [id number] 2.16.840.1.026695.3.579.2. 462 Unknown [id number] 2.16.840.1.337504.3.579.2. 462 Unknown [id number] 2.16.840.1.800361.3.579.2. 462 Unknown [id number] 2.16.840.1.608894.3.579.2. 462 Unknown [id number] 2.16.840.1.075509.3.579.2. 462 Social History Date Type Detail Facility Start: 1969 End: 04-07-2024 Tobacco smoking status ARIS Smokes tobacco daily [facility] Work Phone: Start: 1969 History of tobacco use Cigarette Smo ker [facility] Work Phone: Start: 07-17-2021 End: 11-22-2024 Alcohol intake Current drinker of alcohol (finding) [facility] Start: 10-23-2014 History SDOH Alcohol Comment 12 drinks per week [facility] Start: 1955 Sex Assigned At Not on file [facility] Start: 07-07-2021 End: 10-17-2021 Exposure to SARS-CoV-2 (event) Not sure [facility] Start: 12-07-2019 End: 11-13-2022 Cigarettes smoked current (pack per day) - Reported 1 [facility] Start: 12-07-2019 End: 10-17-2024 Tobacco use and exposure Smokeless tobacco non-user [facility] Start: 08-07-2022 End: 11-13-2022 Tobacco use panel [facility] Start: 03-27-2012 Adult Depression Screening Assessment 0 [facility] Start: 07-20-2023 End: 07-20-2023 Tobacco smoking status NHIS Unknown if ever smoked [facility] Start: 07-20-2023 Sober [facility] Start: 07-20-2023 None [facility] Start: 09-23-2014 Spouse/ Signif icant Other [facility] Start: 07-20-2023 Cigarettes [facility] Start: 1955 Sex Assigned At Female W [facility] Start: 09-29-2024 End: 10-17-2024 Tobacco smoking status NHIS Ex-smoker (finding) [facility] Start: 1969 History of tobacco use Current smoke r [facility] Start: 12-15-2024 Alcoholic beverage intake Ex-drinker (finding) [facility] Start: 11-22-2024 Sex Female (finding) [employer] Within the last year , have you been afraid of your partner or ex-partner? No [employer] Goals Date Patient Goal Desired Activity /State Personal health goal Functional Status Date Assessment Result Facility 12-30-2024 Functional status Ambulates [facility] Work Phone: 12-29-2024 Functional status Tolerates Activity Well [facility] Work Phone: 12-27-2024 Functional status Bedside Commod e;Stand and pivot [facility] Work Phone: 10-09-2024 Functional status Ambulates [facility] Work Phone: 07-22-2023 Functional status Chair [facility] Work Phone: 06-29-2016 Are you deaf, or do you have serious difficulty hearing No 06/29/2016 3:38 PM Nancy Payne RN No [facility] 06-29-2016 Are you blind, or do you have serious difficulty seeing, even when wearing glasses No 06/29/2016 3:38 PM Nancy Payne RN No [facility] 06-29-2016 Do you have serious difficulty walking or climbing stairs Yes 06/29/2016 3:38 PM Nancy Payne RN Yes [facility] 06-29-2016 Do you have difficul ty dressing or bathing No 06/29/2016 3:38 PM Nancy Payne RN No [facility] 06-29-2016 Because of a physica l, mental, or emotional condition, do you have difficulty doing errands alone such as visiting a physician's office or shopping Yes 06/29/2016 3:38 PM Nancy Payne RN Yes [facility] Mental Status Date Assessment Result Facility 12-30-2024 Cognitive function Voice/Name [facility] Work Phone: 12-27-2024 Cognitive function Voice/Name [facility] Work Phone: 10-09-2024 Cognitive function Voice/Name [facility] Work Phone: 07-22-2023 Cognitive function Voice/Name [facility] Work Phone: 06-29-2016 Because of a physica l, mental, or emotional condition, do you have serious difficulty concentrating, remembering, or making decisions No 06/29/2016 3:38 PM Nancy Payne RN No [facility] Clinical Notes 06-30-2016 to 01-09-2025 Telephone Encounter - Naima Haines MA - 01/09/2025 5:07 PM EDTTelephone Encounter - Naima Haines MA - 01/09/2025 5:07 PM EDTTelephone Encounter - Padmini Abbott RN - 01/09/2025 1:23 PM EDT Note Date & Type Note Facility 01-09-2025 Telephone encounter Note Breanna notified. Naima Haines MA [facility] 01-09-2025 Miscellaneous Notes Breanna notified. Naima Haines MA Lorazepam is contraindicated due to her chronic opioid use; ordered hydroxyzine instead for prn use Yoseph Fall MD Breanna with [facility] Receptionist Nurse calls to give update on anxiety. Breanna reports that patient scored a 10 on the PHQ-9 screening at visit today which is considered moderate depression. Patient scored a 13 on GERRY-7 screening which is considered moderate to severe anxiety. Breanna reports she will be faxing results over but not until . Breanna also requesting refill of lorazepam for patient which is not on medication list. Sukhi Marrero RN 1) Request: Patient requesting refill of lorazepam 0.5 mg medication due to anxiety. No lorazepam noted on pt record. She states she was prescribed some back in April. No record of this noted. Pt asking if request can be sent to Dr. Fall anyhow, for consideration. Informed pt that this nurse would send message to provider. 2) FYI: This nurse also changed pt's next appt from Phone Call to in-person OV on 01/19, as PCP is retiring and pt will be able to see PCP one last visit for any needs. Please call patient back with reply to response to #1 above. [phone] Padmini Abbott RN documented in this encounter [facility] 01-09-2025 Telephone encounter Note Lorazepam is contraindicated due to her chronic opioid use; ordered hydroxyzine instead for prn use Yoseph Fall MD [facility] 01-09-2025 Telephone encounter Note Breanna with [facility] Receptionist Nurse calls to give update on anxiety. Breanna reports that patient scored a 10 on the PHQ-9 screening at visit today which is considered moderate depression. Patient scored a 13 on GERRY-7 screening which is considered moderate to severe anxiety. Breanna reports she will be faxing results over but not until . Breanna also requesting refill of lorazepam for patient which is not on medication list. Sukhi Marrero RN [facility] 01-09-2025 Telephone encounter Note 1) Request: Patient requesting refill of lorazepam 0.5 mg medication due to anxiety. No lorazepam noted on pt record. She states she was prescribed some back in April. No record of this noted. Pt asking if request can be sent to Dr. Fall anyhow, for consideration. Informed pt that this nurse would send message to provider. 2) FYI: This nurse also changed pt's next appt from Phone Call to in-person OV on 01/19, as PCP is retiring and pt will be able to see PCP one last visit for any needs. Please call patient back with reply to response to #1 above. [phone] Padmini Abbott RN [facility] 01-08-2025 Telephone encounter Note Called and received Edda's identifiable and secure VM. LM with information below from Provider, if questions to contact the office. Sanjana Baca MA [facility] 01-08-2025 Miscellaneous Notes Called and received Edda's identifiable and secure VM. with information below from Provider, if questions to contact the office. Sanjana Baca MA Okay for delay in care. Nelson Robert APRN.CNP Edda from [facility] calls and states that patient was supposed to have PT evaluation last week but was unable to do. Edda asking for a delay in care order for PT. Please review and advise, Judy Bliss RN documented in this encounter [facility] 01-08-2025 Telephone encounter Note Okay for delay in care. Nelson Robert APRN.CNP [facility] 01-08-2025 Telephone encounter Note Edda from [facility] calls and states that patient was supposed to have PT evaluation last week but was unable to do. Edda asking for a delay in care order for PT. Please review and advise, Judy Bliss RN [facility] 01-05-2025 Hospital Discharg e instructions ABRAHAM Petersen CNP - 01/05/2025 2:29 PM EDT Valve Team will call with follow up appt. Please have non fasting kidney blood work test early next week Call your doctor with any medication questions or if you notice any side effects from your medications. If you are unable to fill your medications, please call your Cell Tender Helper immediately. The office number is located with your follow-up appointment information. Call your doctor if any redness or drainage from the wound site. DO NOT stop taking your medication unless instructed to do so by your doctor. Read the drug information material that were given to you and take medications as instructed by your doctor. New drugs may have been added to your medications, that will strengthen your heart and prevent re-stenosis of the coronary arteries. Drink 6 glasses of water (8 ounces each) over the next 24 hours. Water helps clear the dye from your body. No alcoholic beverages for 24 hours. It may interfere with healing. No exercise or sex for 5 days. Call 911 for chest pain, arm pain, nausea, neck pain, dizziness or unusual sweating AND your pain has not relieved with 2 doses of Nitroglycerin. Call your doctor if a lump at the puncture site enlarges or is larger than marble size. Call your doctor for numbness, tingling, or swelling of the fingers, hand or wrist. Call your doctor for increased area or bruising with discoloration extending into the arm. If bleeding occurs, hold pressure with your thumb against the puncture site and your finger against the back of the wrist for 10 minutes, if BLEEDING continues CALL 911. OK to shower. No tub baths, swimming pools or hot tub soaking for three days. Wash site daily with soap and water, dry gently. The healing wound should remain soft and dry. Keep site clean and dry, no soaking of wrist for three days (no cleaning or dish washing). Remove band aid the day after procedure and leave open to air. No bending of affected wrist for 24 hours. DO NOT lift more than three pounds for 3-5 days. [address] driving for 24 hours. PLEASE CALL YOUR HEART DOCTOR IF YOU CANNOT GET YOUR MEDICATIONS. THE NUMBER IS LISTED WITH YOUR FOLLOW-UP APPOINTMENT. Procedure Sedation Instructions If you have received sedation: you must have someone drive you home You should not drive a car, operate machinery, drink alcohol or perform any activity that requires alertness for the rest of the day. The effects of the sedative should be gone by tomorrow. documented in this encounter [facility] 01-05-2025 Attending History and physical note H&P reviewed. The patient was examined and there are no changes to the H&P. Source Note - Shonda Bacon APRN - [employer] CLAIM [employer]AM[employer]ER - 01/04/2025 9:30 AM EDT Images from the original note were not included. Zaria Shea MD Cardiology Preop cardiovascular exam +1 more Dx Cardiac Valve Problem New Patient Reason for Visit Progress Notes Zaria Shea MD (Physician) Cardiology Expand All Collapse All [facility] [place] [address] [place] [address] Dept: [phone] Dept Visit type: New : 1955 Reason for Visit: New patient, Heart Valve Clinic Assessment and Plan 1. Preop cardiovascular exam - CBC auto differential - Comprehensive metabolic panel - Case Request Cnc Mill And Lathe Operator: Left and right heart cath / [...] bruise/bleed easily. Psychiatric/Behavioral: Negative for dysphoric mood. [Allergies] [Allergies] No Known Allergies [Current Medications] [Current Medications] Current Outpatient Medications: albuterol 108 (90 Base) [...] in each nostril daily. Rinse mouth after use, Disp: , Rfl: Fluticasone-Salmeterol 500-50 MCG/ACT aerosol powder , Inhale 1 Puff as instructed two times a day. Rinse and gargle mouth with water after use., Disp: , Rfl: furosemide (Lasix) 20 MG tablet, Take 20 mg by mouth daily., Disp: , Rfl: HYDROcodone-acetaminophen (Franklin) 5-325 MG tablet, Take 1 tablet by mouth every 6 hours as needed., Disp: , Rfl: montelukast (Singulair) 10 MG tablet, [...] or every other day as needed, Disp: , Rfl: rOPINIRole (Requip) 0.25 MG tablet, Take 0.25 mg by mouth Nightly., Disp: , Rfl: sertraline (Zoloft) 100 MG tablet, Take 200 mg by mouth daily., Disp: , Rfl: tiotropium (Spiriva) 18 MCG inhalation capsule, Place 1 capsule into inhaler and inhale. As instructed, Disp: , Rfl: verapamil SR (Calan SR) 240 MG ER tablet, Take 240 mg by mouth Nightly., Disp: , Rfl: [Medical History] [Medical History] Past Medical History Diagnosis Date A-fib (CMS/HCC) (HCC) Anxiety Aortic stenosis Asthma Chronic respiratory failure (HCC) COPD (chronic obstructive pulmonary disease) (HCC) Depressed History of ETOH abuse HTN (hypertension) Migraines RLS (restless legs syndrome) Social History Tobacco Use Smoking status: Former Types: Cigarettes Smokeless tobacco: Not on file Substance Use Topics Alcohol use: Not Currently [Surgical History] [Surgical History] Past Surgical History Procedure Laterality Date CHOLECYSTECTOMY EXPLORATORY LAPAROTOMY LUNG SURGERY [Family History] [Family History] Problem Relation Name Age of Onset Hypertension Mother Throat cancer Mother Hypertension Father Stomach cancer Father Objective Vitals Vitals: 12/15/24 1436 12/15/24 1504 BP: (S) [...] section of this note. Zaria Shea MD Coronary Appropriate Use Criteria Coronary Presentation (select one): Valvular DiseaseAortic Stenosis; Severity: Severe History of CABG (select one): No Diabetes (select one): No Anginal Classification (CCS) within 2 weeks (select one): CCS II - Slight limitation, with angina only during vigorous physical activity Anti-anginal Meds within 2 weeks (select all that apply): Yes: Beta Blockers and Calcium Channel Blockers Stress or Imaging studies performed (select one), risk/extent of ischemia (select one if applicable): Yes, Unavailable Patient undergoing renal transplant or percutaneous valve procedure (select one): Yes NYHA Classification: Class III Frailty Score :6 [facility] Protocol: No, severe Cosigned by Zaria Shea MD at 01/05/2025 9:02 PM EDT [facility] [employer] Work Phone: 01-05-2025 Note H&P reviewed. The sadiq gao was examined and there are no changes to the H&P. [facility] 01-05-2025 History and physical note H&P reviewed. The patient was examined and there are no changes to the H&P. Source Note - ABRAHAM Reza CNP - 01/04/2025 9:30 AM EDT Images from the original note were not included. Zaria Shea MD Cardiology Preop cardiovascular exam +1 more Dx Cardiac Valve Problem New Patient Reason for Visit Progress Notes Zaria Shea MD (Physician) Cardiology Expand All Collapse All [facility] [place] [address] [place] [address] Dept: [phone] Dept Visit type: New : 1955 Reason for Visit: New patient, Heart Valve Clinic Assessment and Plan 1. Preop cardiovascular exam - CBC auto differential - Comprehensive metabolic panel - Case Request Cnc Mill And Lathe Operator: Left and right heart cath / [...] bruise/bleed easily. Psychiatric/Behavioral: Negative for dysphoric mood. [Allergies] [Allergies] No Known Allergies [Current Medications] [Current Medications] Current Outpatient Medications: albuterol 108 (90 Base) [...] in each nostril daily. Rinse mouth after use, Disp: , Rfl: Fluticasone-Salmeterol 500-50 MCG/ACT aerosol powder , Inhale 1 Puff as instructed two times a day. Rinse and gargle mouth with water after use., Disp: , Rfl: furosemide (Lasix) 20 MG tablet, Take 20 mg by mouth daily., Disp: , Rfl: HYDROcodone-acetaminophen (Franklin) 5-325 MG tablet, Take 1 tablet by mouth every 6 hours as needed., Disp: , Rfl: montelukast (Singulair) 10 MG tablet, [...] or every other day as needed, Disp: , Rfl: rOPINIRole (Requip) 0.25 MG tablet, Take 0.25 mg by mouth Nightly., Disp: , Rfl: sertraline (Zoloft) 100 MG tablet, Take 200 mg by mouth daily., Disp: , Rfl: tiotropium (Spiriva) 18 MCG inhalation capsule, Place 1 capsule into inhaler and inhale. As instructed, Disp: , Rfl: verapamil SR (Calan SR) 240 MG ER tablet, Take 240 mg by mouth Nightly., Disp: , Rfl: [Medical History] [Medical History] Past Medical History Diagnosis Date A-fib (CMS/HCC) (HCC) Anxiety Aortic stenosis Asthma Chronic respiratory failure (HCC) COPD (chronic obstructive pulmonary disease) (HCC) Depressed History of ETOH abuse HTN (hypertension) Migraines RLS (restless legs syndrome) Social History Tobacco Use Smoking status: Former Types: Cigarettes Smokeless tobacco: Not on file Substance Use Topics Alcohol use: Not Currently [Surgical History] [Surgical History] Past Surgical History Procedure Laterality Date CHOLECYSTECTOMY EXPLORATORY LAPAROTOMY LUNG SURGERY [Family History] [Family History] Problem Relation Name Age of Onset Hypertension Mother Throat cancer Mother Hypertension Father Stomach cancer Father Objective Vitals Vitals: 12/15/24 1436 12/15/24 1504 BP: (S) [...] section of this note. Zaria Shea MD Coronary Appropriate Use Criteria Coronary Presentation (select one): Valvular DiseaseAortic Stenosis; Severity: Severe History of CABG (select one): No Diabetes (select one): No Anginal Classification (CCS) within 2 weeks (select one): CCS II - Slight limitation, with angina only during vigorous physical activity Anti-anginal Meds within 2 weeks (select all that apply): Yes: Beta Blockers and Calcium Channel Blockers Stress or Imaging studies performed (select one), risk/extent of ischemia (select one if applicable): Yes, Unavailable Patient undergoing renal transplant or percutaneous valve procedure (select one): Yes NYHA Classification: Class III Frailty Score :6 [place] Protocol: No, severe Cosigned by Zaria Shea MD at 01/05/2025 9:02 PM EDT documented in this encounter [facility] 01-05-2025 Nurse procedure note Sedation Plan ASA class 3 - patient with severe systemic disease Mallampati class: II - soft palate, uvula, fauces visible. Sedation plan: local anesthesia and moderate (conscious sedation) Risks, benefits, and alternatives discussed with patient. Immediate reassessment prior to sedation: Patient's status reviewed and vital signs assessed; acceptable to perform procedure and proceed to administer sedation as planned. Cosigned by Zaria Shea MD at 01/05/2025 9:33 PM EDT [facility] Work Phone: 01-05-2025 Miscellaneous Notes Sedation Plan ASA class 3 - patient with severe systemic disease Mallampati class: II - soft palate, uvula, fauces visible. Sedation plan: local anesthesia and moderate (conscious sedation) Risks, benefits, and alternatives discussed with patient. Immediate reassessment prior to sedation: Patient's status reviewed and vital signs assessed; acceptable to perform procedure and proceed to administer sedation as planned. Cosigned by Zaria Shea MD at 01/05/2025 9:33 PM EDT documented in this encounter [facility] 01-04-2025 Note Spoke to patient and significant other. Verified all medications for AM before procedure. Answered all questions, reinforced cath teach. Verbalized understanding. [facility] 01-04-2025 History and physical note Images from the original note were not included. Zaria Shea MD Cardiology Preop cardiovascular exam +1 more Dx Cardiac Valve Problem New Patient Reason for Visit Progress Notes Zaria Shea MD (Physician) Cardiology Expand All Collapse All [facility] [place] [address] [place] [address] Dept: [phone] Dept Visit type: New : 1955 Reason for Visit: New patient, Heart Valve Clinic Assessment and Plan 1. Preop cardiovascular exam - CBC auto differential - Comprehensive metabolic panel - Case Request Cnc Mill And Lathe Operator: Left and right heart cath / [...] bruise/bleed easily. Psychiatric/Behavioral: Negative for dysphoric mood. [Allergies] [Allergies] No Known Allergies [Current Medications] [Current Medications] Current Outpatient Medications: albuterol 108 (90 Base) [...] in each nostril daily. Rinse mouth after use, Disp: , Rfl: Fluticasone-Salmeterol 500-50 MCG/ACT aerosol powder , Inhale 1 Puff as instructed two times a day. Rinse and gargle mouth with water after use., Disp: , Rfl: furosemide (Lasix) 20 MG tablet, Take 20 mg by mouth daily., Disp: , Rfl: HYDROcodone-acetaminophen (Franklin) 5-325 MG tablet, Take 1 tablet by mouth every 6 hours as needed., Disp: , Rfl: montelukast (Singulair) 10 MG tablet, [...] or every other day as needed, Disp: , Rfl: rOPINIRole (Requip) 0.25 MG tablet, Take 0.25 mg by mouth Nightly., Disp: , Rfl: sertraline (Zoloft) 100 MG tablet, Take 200 mg by mouth daily., Disp: , Rfl: tiotropium (Spiriva) 18 MCG inhalation capsule, Place 1 capsule into inhaler and inhale. As instructed, Disp: , Rfl: verapamil SR (Calan SR) 240 MG ER tablet, Take 240 mg by mouth Nightly., Disp: , Rfl: [Medical History] [Medical History] Past Medical History Diagnosis Date A-fib (CMS/HCC) (HCC) Anxiety Aortic stenosis Asthma Chronic respiratory failure (HCC) COPD (chronic obstructive pulmonary disease) (HCC) Depressed History of ETOH abuse HTN (hypertension) Migraines RLS (restless legs syndrome) Social History Tobacco Use Smoking status: Former Types: Cigarettes Smokeless tobacco: Not on file Substance Use Topics Alcohol use: Not Currently [Surgical History] [Surgical History] Past Surgical History Procedure Laterality Date CHOLECYSTECTOMY EXPLORATORY LAPAROTOMY LUNG SURGERY [Family History] [Family History] Problem Relation Name Age of Onset Hypertension Mother Throat cancer Mother Hypertension Father Stomach cancer Father Objective Vitals Vitals: 12/15/24 1436 12/15/24 1504 BP: (S) [...] section of this note. Zaria Shea MD Coronary Appropriate Use Criteria Coronary Presentation (select one): Valvular DiseaseAortic Stenosis; Severity: Severe History of CABG (select one): No Diabetes (select one): No Anginal Classification (CCS) within 2 weeks (select one): CCS II - Slight limitation, with angina only during vigorous physical activity Anti-anginal Meds within 2 weeks (select all that apply): Yes: Beta Blockers and Calcium Channel Blockers Stress or Imaging studies performed (select one), risk/extent of ischemia (select one if applicable): Yes, Unavailable Patient undergoing renal transplant or percutaneous valve procedure (select one): Yes NYHA Classification: Class III Frailty Score :6 [facility] Protocol: No, severe Cosigned by Zaria Shea MD at 01/05/2025 9:02 PM EDT [facility] [employer] Work Phone: 01-04-2025 History and physical note Images from the original note were not included. Zaria Shea MD Cardiology Preop cardiovascular exam +1 more Dx Cardiac Valve Problem New Patient Reason for Visit Progress Notes Zaria Shea MD (Physician) Cardiology Expand All Collapse All [facility] [place] [address] [place] [address] Dept: [phone] Dept Visit type: New : 1955 Reason for Visit: New patient, Heart Valve Clinic Assessment and Plan 1. Preop cardiovascular exam - CBC auto differential - Comprehensive metabolic panel - Case Request Cnc Mill And Lathe Operator: Left and right heart cath / [...] bruise/bleed easily. Psychiatric/Behavioral: Negative for dysphoric mood. [Allergies] [Allergies] No Known Allergies [Current Medications] [Current Medications] Current Outpatient Medications: albuterol 108 (90 Base) [...] in each nostril daily. Rinse mouth after use, Disp: , Rfl: Fluticasone-Salmeterol 500-50 MCG/ACT aerosol powder , Inhale 1 Puff as instructed two times a day. Rinse and gargle mouth with water after use., Disp: , Rfl: furosemide (Lasix) 20 MG tablet, Take 20 mg by mouth daily., Disp: , Rfl: HYDROcodone-acetaminophen (Franklin) 5-325 MG tablet, Take 1 tablet by mouth every 6 hours as needed., Disp: , Rfl: montelukast (Singulair) 10 MG tablet, [...] or every other day as needed, Disp: , Rfl: rOPINIRole (Requip) 0.25 MG tablet, Take 0.25 mg by mouth Nightly., Disp: , Rfl: sertraline (Zoloft) 100 MG tablet, Take 200 mg by mouth daily., Disp: , Rfl: tiotropium (Spiriva) 18 MCG inhalation capsule, Place 1 capsule into inhaler and inhale. As instructed, Disp: , Rfl: verapamil SR (Calan SR) 240 MG ER tablet, Take 240 mg by mouth Nightly., Disp: , Rfl: [Medical History] [Medical History] Past Medical History Diagnosis Date A-fib (CMS/HCC) (HCC) Anxiety Aortic stenosis Asthma Chronic respiratory failure (HCC) COPD (chronic obstructive pulmonary disease) (HCC) Depressed History of ETOH abuse HTN (hypertension) Migraines RLS (restless legs syndrome) Social History Tobacco Use Smoking status: Former Types: Cigarettes Smokeless tobacco: Not on file Substance Use Topics Alcohol use: Not Currently [Surgical History] [Surgical History] Past Surgical History Procedure Laterality Date CHOLECYSTECTOMY EXPLORATORY LAPAROTOMY LUNG SURGERY [Family History] [Family History] Problem Relation Name Age of Onset Hypertension Mother Throat cancer Mother Hypertension Father Stomach cancer Father Objective Vitals Vitals: 12/15/24 1436 12/15/24 1504 BP: (S) [...] section of this note. Zaria Shea MD Coronary Appropriate Use Criteria Coronary Presentation (select one): Valvular DiseaseAortic Stenosis; Severity: Severe History of CABG (select one): No Diabetes (select one): No Anginal Classification (CCS) within 2 weeks (select one): CCS II - Slight limitation, with angina only during vigorous physical activity Anti-anginal Meds within 2 weeks (select all that apply): Yes: Beta Blockers and Calcium Channel Blockers Stress or Imaging studies performed (select one), risk/extent of ischemia (select one if applicable): Yes, Unavailable Patient undergoing renal transplant or percutaneous valve procedure (select one): Yes NYHA Classification: Class III Frailty Score :6 [facility] Protocol: No, severe Cosigned by Zaria Shea MD at 01/05/2025 9:02 PM EDT documented in this encounter [facility] 01-04-2025 Note Zaria Shea MD Cardiology Preop cardiovascular exam +1 more Dx Cardiac Valve Problem New Patient Reason for Visit Progress Notes Zaria Shea MD (Physician) Cardiology Expand All Collapse All [facility] - [place] [address] [place] [address] Dept: [phone] Dept Visit type: New : 1955 Reason for Visit: New patient, Heart Valve Clinic Assessment and Plan 1. Preop cardiovascular exam - CBC auto differential - Comprehensive metabolic panel - Case Request Cnc Mill And Lathe Operator: Left and right heart cath / [...] bruise/bleed easily. Psychiatric/Behavioral: Negative for dysphoric mood. [Allergies] [Allergies] No Known Allergies [Current Medications] [Current Medications] Current Outpatient Medications: albuterol 108 (90 Base) [...] in each nostril daily. Rinse mouth after use, Disp: , Rfl: Fluticasone-Salmeterol 500-50 MCG/ACT aerosol powder , Inhale 1 Puff as instructed two times a day. Rinse and gargle mouth with water after use., Disp: , Rfl: furosemide (Lasix) 20 MG tablet, Take 20 mg by mouth daily., Disp: , Rfl: HYDROcodone-acetaminophen (Franklin) 5-325 MG tablet, Take 1 tablet by mouth every 6 hours as needed., Disp: , Rfl: montelukast (Singulair) 10 MG tablet, [...] or every other day as needed, Disp: , Rfl: rOPINIRole (Requip) 0.25 MG tablet, Take 0.25 mg by mouth Nightly., Disp: , Rfl: sertraline (Zoloft) 100 MG tablet, Take 200 mg by mouth daily., Disp: , Rfl: tiotropium (Spiriva) 18 MCG inhalation capsule, Place 1 capsule into inhaler and inhale. As instructed, Disp: , Rfl: verapamil SR (Calan SR) 240 MG ER tablet, Take 240 mg by mouth Nightly., Disp: , Rfl: [Medical History] [Medical History] Past Medical History Diagnosis Date A-fib (CMS/HCC) (HCC) Anxiety Aortic st (more content not included)... [facility] 01-04-2025 Note Zaria Shea MD Cardiology Preop cardiovascular exam +1 more Dx Cardiac Valve Problem New Patient Reason for Visit Progress Notes Zaria Shea MD (Physician) Cardiology Expand All Collapse All [facility] [place] [address] [facility] [address] Dept: [phone] Dept Visit type: New : 1955 Reason for Visit: New patient, Heart Valve Clinic Assessment and Plan 1. Preop cardiovascular exam - CBC auto differential - Comprehensive metabolic panel - Case Request Cnc Mill And Lathe Operator: Left and right heart cath / [...] bruise/bleed easily. Psychiatric/Behavioral: Negative for dysphoric mood. [Allergies] [Allergies] No Known Allergies [Current Medications] [Current Medications] Current Outpatient Medications: albuterol 108 (90 Base) [...] in each nostril daily. Rinse mouth after use, Disp: , Rfl: Fluticasone-Salmeterol 500-50 MCG/ACT aerosol powder , Inhale 1 Puff as instructed two times a day. Rinse and gargle mouth with water after use., Disp: , Rfl: furosemide (Lasix) 20 MG tablet, Take 20 mg by mouth daily., Disp: , Rfl: HYDROcodone-acetaminophen (Franklin) 5-325 MG tablet, Take 1 tablet by mouth every 6 hours as needed., Disp: , Rfl: montelukast (Singulair) 10 MG tablet, [...] or every other day as needed, Disp: , Rfl: rOPINIRole (Requip) 0.25 MG tablet, Take 0.25 mg by mouth Nightly., Disp: , Rfl: sertraline (Zoloft) 100 MG tablet, Take 200 mg by mouth daily., Disp: , Rfl: tiotropium (Spiriva) 18 MCG inhalation capsule, Place 1 capsule into inhaler and inhale. As instructed, Disp: , Rfl: verapamil SR (Calan SR) 240 MG ER tablet, Take 240 mg by mouth Nightly., Disp: , Rfl: [Medical History] [Medical History] Past Medical History Diagnosis Date A-fib (CMS/HCC) (HCC) Anxiety Aortic st (more content not included)... [facility] 01-04-2025 Note PPA TEACHER notified to [employer] plete prep for proc orders. Procedure being done: L/RHC Date/time of procedure: 01/05/25 10 am Procedure physician: Dr. Shea PRE-PROCEDURE CHECKLIST Completed: CMP, CBC, EKG, and H&P Date completed: H&P: 12/15/24 CMP: 12/15/24 CBC: 12/15/24 EK12/15/24 PT INR (if indicated): N/A Urine HCG (if indicated): N/A Last ICD/pacer check (if indicated): N/A ORDERS DAY OF PROCEDURE [x] N/A [] Urine HCG [] POC Glucose [] POC INR [] EKG on arrival [] BMP [] CBC [facility] 01-03-2025 Telephone encounter Note Breanna notified of below. Voices understanding. Judy Bliss RN [facility] 01-03-2025 Miscellaneous Notes Breanna notified of below. Voices understanding. Judy Bliss RN Noted. Okay with delay in care. Nelson Robert APRN.CNP Breanna SW from [facility] HH calls and is asking for delay in care till next week. Breanna cannot see patient till next week. Judy Bliss RN documented in this encounter [facility] 01-03-2025 Telephone encounter Note Noted. Okay with delay in care. Nelson Robert APRN.CNP [facility] 01-03-2025 Telephone encounter Note Rafa notified and voiced understanding. Advised that pt appt has been changed to a VV. Naima Haines MA [facility] 01-03-2025 Miscellaneous Notes Rafa notified and voiced understanding. Advised that pt appt has been changed to a VV. Naima Haines MA Okay to proceed with HHC orders. Okay to proceed with social work orders. Okay to switch to virtual visit. Nelson Robert CNP Rafa from [facility] Home Health calling patient was discharged from [facility] on 12/30. Patient refused OT. Skliied nursing plans 2 visits weekly for 2 weeks, then 1 visit weekly for 2 weeks. Would like to add needs Social Work verbal order, for her mood, anxiety, depression. Palliative care had seen her while she was in [facility], hope they continue to see her. Patient complaining of pain all over, upper back, shoulders, rates as a 10. Patient has drug interactions with medications, taking Multaq 400 mg twice daily and Tylenol ES 1000 mg twice daily and her flonase and few other of her medications together. He said patient may not come to her next appt, Patient difficult to get her out of her house, not sure if wanting to change it to Virtual. Please advise documented in this encounter [facility] 01-03-2025 Telephone encounter Note Breanna LUCIO from [facility] HH calls and is asking for delay in care till next week. Breanna cannot see patient till next week. Judy Bliss, RN [facility] 01-03-2025 Note Discharge summary re viewed. Ok to proceed with cath this Wednesday if ok with patient. [facility] 01-03-2025 Note Received notice tonya ent admitted to [facility] 12/26-12/30 for iron deficiency anemia and acute COPD exacerbation. Will have PPA TEACHER review discharge summary to determine if cath on Wednesday is appropriate [facility] 01-02-2025 Telephone encounter Note Okay to proceed with HHC orders. Okay to proceed with social work orders. Okay to switch to virtual visit. Nelson Robert CNP [facility] 01-02-2025 Telephone encounter Note Rafa from [facility] Home Health calling patient was discharged from [facility] on 12/30. Patient refused OT. Skliied nursing plans 2 visits weekly for 2 weeks, then 1 visit weekly for 2 weeks. Would like to add needs Social Work verbal order, for her mood, anxiety, depression. Palliative care had seen her while she was in [facility], hope they continue to see her. Patient complaining of pain all over, upper back, shoulders, rates as a 10. Patient has drug interactions with medications, taking Multaq 400 mg twice daily and Tylenol ES 1000 mg twice daily and her flonase and few other of her medications together. He said patient may not come to her next appt, Patient difficult to get her out of her house, not sure if wanting to change it to Virtual. Please advise [facility] 01-01-2025 Telephone encounter Note Noted. Patient has follow up with Dr. Fall scheduled on 01/19. Nelson Robert APRN.CNP [facility] 01-01-2025 Miscellaneous Notes Noted. Patient has follow up with Dr. Fall scheduled on 01/19. Nelson Robert APRN.CNP Palma Anguiano with [facility] calls to let provider know that patient was admitted to [facility] last evening for COPD exacerbation. [facility] Sukhi Marrero RN documented in this encounter [facility] 12-30-2024 Discharge summary [facility] 12-30-2024 Note [facility] 12-29-2024 Progress note Note Date/Time December 29, 2024 4:00pm [facility] Medical Records Department [address] [place] [address] Progress Note 12/29/24 1346 MR#: [id number] Acct: [id number] Name: DENIA GONZALEZ Rep #:[id number] : 1955 69 From: Lynne Schafer MD PCP: Dr. Yoseph Fall MD Status:AD M IN Location: [place] [address] Subjective Subjective Patient seen and examined with her nurse by her bedside. She had no active complaitns. She remained on her baseline 3L of oxygen. Her heart rate went up to the 140s overnight and she had to be given a dose of digoxin. Heart rate is better controlled today. Objective Data Objective Data Vital Signs: Vital Signs Temp Pulse Resp BP Pulse Ox O2 Del Method O2 Flow Rate 97.7 F L 100 18 142/62 H 96 Nasal Cannula 3 12/29/24 11:50 12/29/24 11:50 12/29/24 11:50 12/29/24 11:50 12/29/24 11:50 12/29/24 11:50 12/29/24 11:50 FiO2 30 12/28/24 11:25 Oxygen Flow Rate (L/min) 3 Oxygen Delivery Method Nasal Cannula Weight: 162 lb 14.746 oz Body Mass Index (BMI) 27.9 Intake & Output: Intake and Output for Last 24 Hours 12/27/24 12/28/24 12/29/24 23:59 23:59 23:59 Intake Total 1300 / 1300 799.5 / 799.5 Output Total 400 / 400 1 / 301 300 / 300 Balance 900 / 900 798.5 / 498.5 -300 / -300 Lab / Micro Data 12/29/24 10:01 12/29/24 10:01 Labs: Laboratory Results - last 24 hr 12/29/24 10:01: WBC 7.6, RBC 3.15 L, Hgb 8.4 L, Hct 26.6 L, MCV 84.4, MCH 26.7 L, MCHC 31.6 L, RDW Std Deviation 43.0, RDW Coeff of Augustin 14.0, Plt Count 169, MPV9.3, Immature Gran % (Auto) 0.700, Neut % (Auto) 89.9 H, Lymph % (Auto) 6.5 L, Mineral % (Auto) 2.8, Eos % (Auto) 0.0, Baso % (Auto) 0.1, Absolute Neuts (auto) 6.8, Absolute Lymphs (auto) 0.49 L, Nucleated RBC % 0, Sodium 140, Potassium 4.4, Chloride 94 L, Carbon Dioxide 38.0 H, Anion Gap 8, BUN 21 H, Creatinine 0.55 L, Estim Creat Clear Calc 65.36, Est GFR (MDRD) Non-Af 99, BUN/Creatinine Ratio 37.4 H, Glucose 97, Calcium 8.7 Micro: Microbiology 12/26/24 21:26 Sputum, Expectorated/Coughed Gram Stain - Final 12/26/24 21:26 Sputum, Expectorated/Coughed Respiratory Culture - Final 12/26/24 20:48 Mucosa - Nasopharyngeal Respiratory Panel (PCR) - Final Rhythm Strip Rhythm Strip: Sinus Rhythm Rate: 99 Ectopy: None Social Homelessness:: Sheltered Physical Exam Const alert, oriented x3 and no apparent distress General Appearance: cooperative HEENT normocephalic, head/scalp atraumatic, moist oral mucous membranes and oropharynxnormal Eyes EOMs intact bilaterally Neck supple and no JVD Lymph Lymphatic: no lymphedema noted Resp Resp Narrative: mildly diminished breath sounds bibasally, no wheezes or crackles. Remains on 3Lof oxygen by nasal canula Cardio regular rate, regular rhythm, S1 normal heart sound and S2 normal heart sound Cardio Narrative: grade 3-4 ejection systolic murmur over the aortic valve region GI normal to inspection, nondistended, normoactive bowel sounds, soft to palpation and non-tender Extremity normal capillary refill, no clubbing, cyanosis or edema and no calf tenderness General Extremity: no tenderness to palpation of joints or extremities Skin General Skin Exam: no breakdown Neuro CN's II-XII intact bilaterally and no focal motor deficits Motor Exam: general weakness Psych thought process normal and cooperative Appearance: appropriate Assessment & Plan Assessment/Plan (1) Acute respiratory insufficiency: (2) COPD with acute exacerbation: PLAN: Plan #Acute COPD exacerbation in the setting of chronic respiratory failure * On 3 L of oxygen which is her baseline. On breathing treatments bronchodilators. On IV Solu-Medrol. Will switch to PO prednisone 40mg daily x 5 days. * Titrate oxygen as needed to be to saturation above 90%. Respiratory panel was negative. * Currently on cefdinir; to complete a 5 day course. #Acute anemia: * Was started on Eliquis during most recent admission for A-fib. No globin is down to around 8. Stool for occult blood pending. * Iron panel showed evidence of iron deficiency anemia. Will consult gastroenterology. 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 * Hb today is 8.4. * #Afib * Went into A-fib with RVR overnight. On Coreg and Multaq as well as Cardizem. Also received a dose of digoxin. Heart rate is better controlled today. Eliquis remains on hold and per GI to hold Eliquis till next week 01/02/2025. * 2D echo from 10/02/2024 showed EF of 70% with stage I diastolic dysfunction and severe aortic stenosis * #Hypokalemia: resolved. K is 4.6 today. # History of non-small cell lung cancer: S/p right lung lobectomy. In remission. #Severe aortic valve stenosis: * 2D echo from September 2024 showed severe concentric left ventricular hypertrophy with EF of 70% and stage I diastolic dysfunction. * To follow-up at [facility] as scheduled for evaluation for TAVR. * On Multaq, Coreg and verapamil. * #Hypertension: On Coreg and verapamil. IV hydralazine as needed #History of paroxysmal A-fib: On Coreg and Multaq. Eliquis held in light of anemia. #GERD: On PPI DVT prophylaxis: SCDs Disposition:due to her going into afib with RVR overnight, will watch one more day to ensure she remains stable. FOr likely dc over the next 24-48 hours Charges/Coding Visit Charges Inpatient E&M: 59194 Subs Hosp L2 12/29/24 1600 <Electronically signed by Lynne Schafer MD> Lynne Schafer MD Cosigner Signature (if applicable): CC: ~ Signed [facility] Work Phone: 1([phone]) 459-888909-05-2025 Progress note [facility] Medical Records Department [address] [place] [address] Progress Note 12/29/24 1346 MR#: [id number] Acct: [id number] Name: DENIA GONZALEZ Rep #:[id number] : 1955 69 From: Lynne Schafer MD PCP: Dr. Yoseph Fall MD Status:AD M IN Location: [place] [address] Subjective Subjective Patient seen and examined with her nurse by her bedside. She had no active complaitns. She remainedon her baseline 3L of oxygen. Her heart rate went up to the 140s overnight and she had to be given a dose of digoxin. Heart rate is better controlled today. Objective Data Objective Data Vital Signs: Vital Signs Temp Pulse Resp BP Pulse Ox O2 Del Method O2 Flow Rate 97.7 F L 100 18 142/62 H 96 Nasal Cannula 3 12/29/24 11:50 12/29/24 11:50 12/29/24 11:50 12/29/24 11:50 12/29/24 11:50 12/29/24 11:50 12/29/24 11:50 FiO2 30 12/28/24 11:25 Oxygen Flow Rate (L/min) 3 Oxygen Delivery Method Nasal Cannula Weight: 162 lb 14.746 oz Body Mass Index (BMI) 27.9 Intake & Output: Intake and Output for Last 24 Hours 12/27/24 12/28/24 12/29/24 23:59 23:59 23:59 Intake Total 1300 / 1300 799.5 / 799.5 Output Total 400 / 400 1 / 301 300 / 300 Balance 900 / 900 798.5 / 498.5 -300 / -300 Lab / Micro Data 12/29/24 10:01 12/29/24 10:01 Labs: Laboratory Results - last 24 hr 12/29/24 10:01: WBC 7.6, RBC 3.15 L, Hgb 8.4 L, Hct 26.6 L, MCV 84.4, MCH 26.7 L, MCHC 31.6 L, RDW Std Deviation 43.0, RDW Coeff of Augustin 14.0, Plt Count 169, MPV9.3, Immature Gran % (Auto) 0.700, Neut% (Auto) 89.9 H, Lymph % (Auto) 6.5 L, Mineral % (Auto) 2.8, Eos % (Auto) 0.0, Baso % (Auto) 0.1, Absolute Neuts (auto) 6.8, Absolute Lymphs (auto) 0.49 L, Nucleated RBC % 0, Sodium 140, Potassium 4.4, Chloride 94 L, Carbon Dioxide 38.0 H, Anion Gap 8, BUN 21 H, Creatinine 0.55 L, Estim Creat Clear Calc 65.36, Est GFR (MDRD) Non-Af 99, BUN/Creatinine Ratio 37.4 H, Glucose 97, Calcium 8.7 Micro: Microbiology 12/26/24 21:26 Sputum, Expectorated/Coughed Gram Stain - Final 12/26/24 21:26 Sputum, Expectorated/Coughed Respiratory Culture - Final 12/26/24 20:48 Mucosa - Nasopharyngeal Respiratory Panel (PCR) - Final Rhythm Strip Rhythm Strip: Sinus Rhythm Rate: 99 Ectopy: None Social Homelessness:: Sheltered Physical Exam Const alert, oriented x3 and no apparent distress General Appearance: cooperative HEENT normocephalic, head/scalp atraumatic, moist oral mucous membranes and oropharynxnormal Eyes EOMs intact bilaterally Neck supple and no JVD Lymph Lymphatic: no lymphedema noted Resp Resp Narrative: mildly diminished breath sounds bibasally, no wheezes or crackles. Remains on 3Lof oxygen by nasal canula Cardio regular rate, regular rhythm, S1 normal heart sound and S2 normal heart sound Cardio Narrative: grade 3-4 ejection systolic murmur over the aortic valve region GI normal to inspection, nondistended, normoactive bowel sounds, soft to palpation and non-tender Extremity normal capillary refill, no clubbing, cyanosis or edema and no calf tenderness General Extremity: no tenderness to palpation of joints or extremities Skin General Skin Exam: no breakdown Neuro CN's II-XII intact bilaterally and no focal motor deficits Motor Exam: general weakness Psych thought process normal and cooperative Appearance: appropriate Assessment & Plan Assessment/Plan (1) Acute respiratory insufficiency: (2) COPD with acute exacerbation: PLAN: Plan #Acute COPD exacerbation in the setting of chronic respiratory failure * On 3 L of oxygen which is her baseline. On breathing treatments bronchodilators. On IV Solu-Medrol. Will switch to PO prednisone 40mg daily x 5 days. * Titrate oxygen as needed to be to saturation above 90%. Respiratory panel was negative. * Currently on cefdinir; to complete a 5 day course. #Acute anemia: * Was started on Eliquis during most recent admission for A-fib. No globin is down to around 8. Stool for occult blood pending. * Iron panel showed evidence of iron deficiency anemia. Will consult gastroenterology. * EGD showed normal esophagus and hematin in the gatric body as well as oozing gastric ulcers whichwere treated with a heater probe, and 2 nonbleeding angiodysplastic lesions in the duodenum which were treated with a heater probe. * Hb today is 8.4. * #Afib * Went into A-fib with RVR overnight. On Coreg and Multaq as well as Cardizem. Also received a doseof digoxin. Heart rate is better controlled today. Eliquis remains on hold and per GI to hold Eliquis till next week 01/02/2025. * 2D echo from 10/02/2024 showed EF of 70% with stage I diastolic dysfunction and severe aortic stenosis * #Hypokalemia: resolved. K is 4.6 today. # History of non-small cell lung cancer: S/p right lung lobectomy. In remission. #Severe aortic valve stenosis: * 2D echo from September 2024 showed severe concentric left ventricular hypertrophy with EF of 70% and stage I diastolic dysfunction. * To follow-up at [facility] as scheduled for evaluation for TAVR. * On Multaq, Coreg and verapamil. * #Hypertension: On Coreg and verapamil. IV hydralazine as needed #History of paroxysmal A-fib: On Coreg and Multaq. Eliquis held in light of anemia. #GERD: On PPI DVT prophylaxis: SCDs Disposition:due to her going into afib with RVR overnight, will watch one more day to ensure she remains stable. FOr likely dc over the next 24-48 hours Charges/Coding Visit Charges Inpatient E&M: 70049 Subs Hosp L2 12/29/24 1600 Lynne Schafer MD Cosigner Signature (if applicable): CC: ~ Signed [facility]09-05-2025 Progress note Author Stacy abdi [facility] Note Date/Time December 29, 2024 11:24am [facility] Medical Records Department [address] [place] [address] Progress Note - Palliative 12/29/24 1109 MR#: [id number] Acct: [id number] Name: DENIA GONZALEZ Rep #:[id number] : 1955 69 From: Stacy Nazario MAILER APPRENTICE-C PCP: Dr. Yoseph Fall MD Status:AD M IN Location: [place] [id number] Subjective Subjective 12/29/24: Prior to meeting with the patient at bedside I did reviewed documentation and labs from overnight. I then met with Ting at bedside. Shestates that she is feeling better today. She states I know I do not have a lot of time left. I then asked her if she felt that she was ready for hospice and she stated no not yet. I did explain to her that hospice could help with better symptom management, when she does choose to transition to hospice. She stated understanding. She did state that she continues to be open to outpatientpalliative care for symptom management and an extra layer of support going forward. We did discuss her EGD from yesterday as she did not remember what thedoctor said told her. I did let her know that she did have some gastric ulcers that were oozing and that Dr. Mendenhall used a heat probe on those areas. She stated understanding. Ting continues to be on her home oxygen administrationof 3 L and she is satting 96% currently. I listen to her lungs in which she does continue to have some coarse crackles bilaterally with expiratory wheezes. She does feel that she could use belies a breathing treatment right now. We then had an extensive discussion about her anxiety. She states that it is a vicious cycle that when she gets anxious her breathing gets worse because she feels like she shuts down. She is hopeful that she could go back on her medications that she was taking previously to assist with her anxiety which in turn helps her breathing. I do feel that, at this time, patient would benefit from better anxiety control. She is currently receiving Ativan at night which she states has been of great benefit. Patient may benefit from twice daily Ativan with 1 being scheduled and the other as needed. Patient did request thatI send my recommendations to her primary care provider. I did remind her that it is the doctors privilege to treat the patient and what he feels is the best interest. She did state understanding. All questions the patient had were answered. Palliative care will continue to follow for support and goals of careconversations going forward. 12/28/24: Prior to meeting with the patient at bedside I reviewed documentation and labs from overnight. I then met with the patient, Ting at bedside. She was sleeping upon entering my room and I did notice that while she was relaxed she breathes much easier. I did listen to her lungs while she was laying on herleft side in which her lung sounds are diminished bilaterally with some fine crackles. Patient was then gently awakened by myself and STORE ASSISTANT to do her vitals. Patient states that she feels that she is breathing much easier today. We did have an extensive discussion about relaxation and how it affects her breathing. I did teach her deep breathing exercises and guided imagery to help her during times of extreme anxiety. She does state that her granddaughter is a source of calming for her and that she will concentrate on her during these times. She was able to repeat demonstration deep breathing exercises. We also discussed her sleep overnight which she states that she did sleep very well. She does receive Ativan 0.5 mg p.o. nightly which she states that she feels is helping her. I do recommend the possibility of increasing her Ativan to twice daily to assist with keeping her more calm during hospitalization. Patient would most likely benefit from a daily as needed of Ativan for panic attacks. I did note that patient's potassium has normalized today at 4.6 from 3.0 yesterday. Her BUN is slightly elevated at 23 from 18 yesterday creatinine is 0.59. Hemoglobinand hematocrit have remained stable from yesterday. Patient states that she continues to be interested in palliative care on outpatient basis. Case management updated. All questions answered. 12/27/24: Prior to meeting with the patient at bedside I reviewed documentation, labs, and radiological studies also documentation from previous visits in September. I then met with the patient, Ting at bedside. She was sitting on the edge ofthe bed. Audible coarse crackles noted with cough. I introduced myself and theconcept of palliative care which she voluntarily excepted our services. iDanehstates that she received outpatient palliative care services previously but was told that they could not help her because she was requiring pain management. Atthis time, I do feel that the patient would benefit from palliative care from anoutpatient standpoint as she does have severe anxiety which is keeping her from having any quality of life and keeps her in her home as well as shortness of breath. Patient states that the majority of her anxiety can be attributed to her fear of running out of oxygen. She states that she only has a small tank for when she goes out of the home and that she is fearful that she will run out of oxygen. She does not have a condenser at home and only has 1 tank at home. I do feel that the patient would benefit from a condenser to help relieve her anxiety for running out of oxygen. She does state that her primary care provider has significantly reduced her pain medications at home in which she previously was receiving 120 tablets/month and that she is now down to 60. Her primary care provider did take her off of her Xanax and now has her on Zoloft twice a day and BuSpar 4 times per day. She does not feel that this combinationis working for her. Patient did become extremely anxious while talking about her medications and her breathing. It was recommended that she utilize BiPAP while in the hospital and she initially stated that she did not want to use it. She did utilize it overnight and states that it did help her. She is open to utilizing BiPAP at home. Patient states that her quality of life at home has significant significantly decreased recently. She states that she loves to fishand would like to spend time with her family at events but she is too fearful toleave her house for fear of running out of oxygen. Patient does have a significant other, Mike, who was able to help her at home she also has a neighbor who comes down to help her as well. I do feel that Ting would benefit from outpatient palliative care services in which she is open to, for anxiety and shortness of breath. She does understand that palliative care will not be able to assist her with pain management and that would be provided by herprimary care provider. Patient did endorse being a full code and states understanding of the benefits versus burdens of CPR and intubation. I also discussed the possibility of hospice in which she then also became anxious and stated that she was not ready to talk about that quite yet. All questions were answered. Palliative care will continue to follow for goals of care conversations as clinical picture evolves. HPI:The patient is a 69 y/o F w/ PMHx: Valvular Heart Disease, GERD, RLS, Anxiety and Depression, Former tobacco use, Former EtOH Abuse, Hx Non-small celllung cancer status post right lung lobectomy remotely 2003, COPD/Asthma with Chronic Hypoxic Respiratory Failure (2L NC) with allergic rhinitis, HTN who presents to the [facility] ED on 12/26/2024 with history of 3 to 4days of progressively worsening fatigue, malaise, dyspnea with chest tightness and wheezing coupled unfortunately with significant panic attacks whenever she has been attempting to leave the house with a productive cough specifically of yellow sputum prompting ED evaluation be cautious. She does report that she is supposed to have a heart cath at [facility] in the next several weeks because [...] BUN/creatinine 16/0.64, GFR 96, glucose 112, initial [id number] with repeat delta 25, chest x-ray with [...] 1 and Solu-Medrol 125 mg IVx 1. Objective Data Objective Data Vital Signs: Vital Signs Temp Pulse Resp BP Pulse Ox O2 Del Method O2 Flow Rate 98.5 F 83 22 H 122/57 H 98 Nasal Cannula 3 12/29/24 01:00 12/29/24 06:00 12/29/24 06:00 12/29/24 06:00 12/29/24 06:00 12/29/24 06:52 12/29/24 06:52 FiO2 30 12/28/24 11:25 Oxygen Flow Rate (L/min) 3 Oxygen Delivery Method Nasal Cannula Weight: 162 lb 14.746 oz Body Mass Index (BMI) 27.9 Intake & Output: Intake and Output for Last 24 Hours 12/27/24 12/28/24 12/29/24 23:59 23:59 23:59 Intake Total 1300 / 1300 799.5 / 799.5 Output Total 400 / 400 1 / 301 300 / 300 Balance 900 / 900 798.5 / 498.5 -300 / -300 Lab / Micro Data Attestation: I reviewed the patient's lab results. 12/29/24 10:01 12/29/24 10:01 Labs: Laboratory Results - last 24 hr 12/29/24 10:01: WBC 7.6, RBC 3.15 L, Hgb 8.4 L, Hct 26.6 L, MCV 84.4, MCH 26.7 L, MCHC 31.6 L, RDW Std Deviation 43.0, RDW Coeff of Augustin 14.0, Plt Count 169, MPV9.3, Immature Gran % (Auto) 0.700, Neut % (Auto) 89.9 H, Lymph % (Auto) 6.5 L, Mineral % (Auto) 2.8, Eos % (Auto) 0.0, Baso % (Auto) 0.1, Absolute Neuts (auto) 6.8, Absolute Lymphs (auto) 0.49 L, Nucleated RBC % 0, Sodium 140, Potassium 4.4, Chloride 94 L, Carbon Dioxide 38.0 H, Anion Gap 8, BUN 21 H, Creatinine 0.55 L, Estim Creat Clear Calc 65.36, Est GFR (MDRD) Non-Af 99, BUN/Creatinine Ratio 37.4 H, Glucose 97, Calcium 8.7 Micro: Microbiology 12/26/24 21:26 Sputum, Expectorated/Coughed Gram Stain - Final 12/26/24 21:26 Sputum, Expectorated/Coughed Respiratory Culture - Final 12/26/24 20:48 Mucosa - Nasopharyngeal Respiratory Panel (PCR) - Final Rhythm Strip Rhythm Strip: Sinus Rhythm Rate: 99 Ectopy: None Social Homelessness:: Sheltered Physical Exam Const alert and oriented x3 General Appearance: cooperative Orientation / Consciousness: awake, oriented to person, oriented to place and oriented to time Exam Limitations: no limitations HEENT normocephalic Eyes Eyes Narrative: Corrective lenses Neck full ROM Lymph Lymphatic: no lymphadenopathy noted Chest inspection of chest normal Resp Effort and Inspection: able to speak in complete sentences, tachypneic, pursed lip breathing and audible wheezes Auscultation: crackles and diminished lung sounds Cardio regular rate GI normal to inspection, nondistended, normoactive bowel sounds no CVA tenderness Back/Spine no CVA tenderness Extremity normal to inspection Skin no rashes or lesions noted Neuro oriented x3 Psych Mood & Affect: anxious Charges/Coding Palliative Care Palliative Care: [id number] Follow up 35-49 min Consulation Summary Current admission Current Code Status: full code Associated Diagnosis: COPD Consult Data Date of Consult: 12/28/24 Location of consult: PCU Reason for referral: goals of care and code status Referral source: Sienna Nhung [facility] Palliative care diagnosis (Summary list): COPD exacerbation Palliative care services/treatment (Accepted, as consult): accepted Case discussed with referring provider: provider notes Palliative Assessment Advanced Directive - Current Admission Advance Directive: Advance Directive ON ADMISSION - REFERENCE 3 Do you have a Healthcare No 12/26/24 21:29 Living Will? Do you have a Healthcare Power No 12/26/24 21:29 of Vamp Throater? Do You Want Additional Declined 12/26/24 21:29 Information on Advanced Directives or Healthcare Proxy/DPOA comments: Significant other, Mike Symptoms Dyspnea symptoms: Severe Constipation symptoms: None Nausea symptoms: None Vomiting symptoms: None Depression symptoms: Moderate Anorexia symptoms: None Cough symptoms: Moderate Insomnia symptoms: Mild Diarrhea symptoms: None Fatigue symptoms: Mild Weakness symptoms: Mild Confusion symptoms: None Impression & Recommendations Impressions Impressions: Patient would benefit from palliative care outpatient services. Recommentation Palliative recommendations: I do recommend that the patient receives outpatient palliative. Encouter Achieved as a result of this Palliative Care Encounter: [[id number], [id number] ] minutes were spent in total for this visit which consisted, primarily of counseling and education dealing with the complex and emotionally intense issues of symptom management and palliative care in the setting of serious and potentially life-threatening illness. Review of documentation, labs and radiological studies. ?Patient/family had the opportunity to ask questions Plan (1) COPD with acute exacerbation: PLAN: Medical management per primary team (2) Respiratory insufficiency: PLAN: Medical management per primary team (3) Anxiety and depression: PLAN: Recommend aggressive anxiety management for improved respiratory status (4) Palliative care encounter: PLAN: Palliative care outpatient referral ROS Constitutional Constitutional: Reports systems reviewed and no addt'l complaints, except as documented Eyes Eyes: Reports systems reviewed and no addt'l complaints, except as documented ENT HEENT: Reports systems reviewed and no addt'l complaints, except as documented Cardiovascular Cardiovascular: Reports dyspnea, dyspnea at rest and dyspnea on exertion Respiratory/Chest Respiratory/Chest: Reports chest congestion, chest tightness, cough, dyspnea, dyspnea on exertion and wheezing Gastrointestinal Gastrointestinal: Reports other Details: States that she is feeling better today Genitourinary Genitourinary: Reports systems reviewed and no addt'l complaints, except as documented Musculoskeletal Musculoskeletal: Reports systems reviewed and no addt'l complaints, except as documented Integumentary Integumentary: Reports systems reviewed and no addt'l complaints, except as documented Neurologic Neurologic: Reports systems reviewed and no addt'l complaints, except as documented Psychiatric Psychiatric: Reports anxiety and other Details: Patient does have severe anxietywhich does affect her breathing. Endocrine Endocrinology: Reports systems reviewed and no addt'l complaints, except as documented Hematologic/Lymphatic Hematologic/Lymphatic: Reports systems reviewed and no addt'l complaints, exceptas documented Allergic/Immunologic Allergic/Immunologic: Reports systems reviewed and no addt'l complaints, except as documented 12/29/24 1124 <Electronically signed by Stacy WATTS> Cosigner Signature (if applicable): CC: ~ Signed [facility] Work Phone: [phone] Progress note [facility] Medical Records Department [address] [place] [address] Progress Note - Palliative 12/29/24 1109 MR#: [id number] Acct: [id number] Name: DENIA GONZALEZ Rep #:[id number] : 1955 69 From: Stacy Nazario MAILER APPRENTICE-C PCP: Dr. Yoseph Fall MD Status:AD M IN Location: [facility] [id number]- 1 Subjective Subjective 12/29/24: Prior to meeting with the patient at bedside I did reviewed documentation and labs from overnight. I then met with Ting at bedside. Shestates that she is feeling better today. She statesI know I do not have a lot of time left. I then asked her if she felt that she was ready for hospice and she stated no not yet. I did explain to her that hospice could help with better symptom management, when she does choose to transition to hospice. She stated understanding. She did state that she continues to be open to outpatientpalliative care for symptom management and an extra layer ofsupport going forward. We did discuss her EGD from yesterday as she did not remember what thedoctorsaid told her. I did let her know that she did have some gastric ulcers that were oozing and that Dr. Mendenhall used a heat probe on those areas. She stated understanding. Ting continues to be on herhome oxygen administrationof 3 L and she is satting 96% currently. I listen to her lungs in which she does continue to have some coarse crackles bilaterally with expiratory wheezes. She does feel that she could use belies a breathing treatment right now. We then had an extensive discussion about her anxiety. She states that it is a vicious cycle that when she gets anxious her breathing gets worsebecause she feels like she shuts down. She is hopeful that she could go back on her medications that she was taking previously to assist with her anxiety which in turn helps her breathing. I do feel that, at this time, patient would benefit from better anxiety control. She is currently receiving Ativan at night which she states has been of great benefit. Patient may benefit from twice daily Ativ an with 1 being scheduled and the other as needed. Patient did request thatI send my recommendations to her primary care provider. I did remind her that it is the doctors privilege to treat the patient and what he feels is the best interest. She did state understanding. All questions the patient had were answered. Palliative care will continue to follow for support and goals of careconversations going forward. 12/28/24: Prior to meeting with the patient at bedside I reviewed documentation and labs from overnight. I then met with the patient, Ting at bedside. She was sleeping upon entering my room and I did notice that while she was relaxed she breathes much easier. I did listen to her lungs while she was laying on herleft side in which her lung sounds are diminished bilaterally with some fine crackles. Patient was then gently awakened by myself and STORE ASSISTANT to do her vitals. Patient states that she feelsthat she is breathing much easier today. We did have an extensive discussion about relaxation and how it affects her breathing. I did teach her deep breathing exercises and guided imagery to help herduring times of extreme anxiety. She does state that her granddaughter is a source of calming for her and that she will concentrate on her during these times. She was able to repeat demonstration deep breathing exercises. We also discussed her sleep overnight which she states that she did sleep very well. She does receive Ativan 0.5 mg p.o. nightly which she states that she feels is helping her. I do recommend the possibility of increasing her Ativan to twice daily to assist with keeping her more calm during hospitalization. Patient would most likely benefit from a daily as needed of Ativan for panic attacks. I did note that patient's potassium has normalized today at 4.6 from 3.0 yesterday. Her BUN is slightly elevated at 23 from 18 yesterday creatinine is 0.59. Hemoglobinand hematocrit h ave remained stable from yesterday. Patient states that she continues to be interested in palliative care on outpatient basis. Case management updated. All questions answered. 12/27/24: Prior to meeting with the patient at bedside I reviewed documentation, labs, and radiological studies also documentation from previous visits in September. I then met with the patient, Ting at bedside. She was sitting on the edge ofthe bed. Audible coarse crackles noted with cough. I introduced myself and theconcept of palliative care which she voluntarily excepted our services. Deborahstates that she received outpatient palliative care services previously but was told that they could nothelp her because she was requiring pain management. Atthis time, I do feel that the patient would benefit from palliative care from anoutpatient standpoint as she does have severe anxiety which is keeping her from having any quality of life and keeps her in her home as well as shortness of breath. Patient states that the majority of her anxiety can be attributed to her fear of running out of oxygen. She states that she only has a small tank for when she goes out of the home and that she is fearful that she will run out of oxygen. She does not have a condenser at home and only has 1 tank at home. I do feel that the patient would benefit from a condenser to help relieve her anxiety for running out of oxygen. She does state that her primary care provider has significantly reduced her pain medications at home in which she previously was receiving 120 tablets/month and that she is now down to 60. Her primary care provider did take her off of her Xanax and now has her on Zoloft twice a day and BuSpar 4 times per day. She does not feel that this combinationis working for her. Patient did become extremely anxious while talking about her medications and her breathing. It was recommended that she utilize BiPAP while in the hospital and she initially stated that she did not want to use it.She did utilize it overnight and states that it did help her. She is open to utilizing BiPAP at home. Patient states that her quality of life at home has significant significantly decreased recently.She states that she loves to fishand would like to spend time with her family at events but she is too fearful toleave her house for fear of running out of oxygen. Patient does have a significant other, Mike, who was able to help her at home she also has a neighbor who comes down to help her as well. I do feel that Ting would benefit from outpatient palliative care services in which she is open to, for anxiety and shortness of breath. She does understand that palliative care will not be able to assist her with pain management and that would be provided by herprimary care provider. Patientdid endorse being a full code and states understanding of the benefits versus burdens of CPR and intubation. I also discussed the possibility of hospice in which she then also became anxious and stated that she was not ready to talk about that quite yet. All questions were answered. Palliative carewill continue to follow for goals of care conversations as clinical picture evolves. HPI:The patient is a 69 y/o F w/ PMHx: Valvular Heart Disease, GERD, RLS, Anxiety and Depression, Former tobacco use, Former EtOH Abuse, Hx Non-small celllung cancer status post right lung lobectomyremotely 2003, COPD/Asthma with Chronic Hypoxic Respiratory Failure (2L NC) with allergic rhinitis,HTN who presents to the [facility] ED on 12/26/2024 with history of 3 to 4days of progressively worsening fatigue, malaise, dyspnea with chest tightness and wheezing coupled unfortunately with significant panic attacks whenever she has been attempting to leave the house with a productive cough specifically of yellow sputum prompting ED evaluation be cautious. She does report that she is supposed to have a heart cath at [facility] in the next several weeks because of valvular heart disease for evaluation. Patient reports that her stools she believes have been normal in appearance. He does describe ongoing constant tightness with her dyspnea in the chest but no specific stabbing painor significant pressure or pleuritic discomfort. Workup in [...] BUN/creatinine 16/0.64, GFR 96, glucose 112, initial [id number] with repeat delta 25, chest x-ray with surgical clips overlying the upper mediastinum and right paratracheal region with some local volume loss and linearscarring as well as COPD type changes with no acute cardiopulmonary f indings, EKG with SR with nonspecific changes with no acute evidence of ischemia. In the ED patientministered albuterol treatment x 3 and DuoNeb therapy x 1 in additionto Xanax 0.25 mg p.o. x 1, doxycycline 100 mg p.o. x 1 and Solu- Medrol 125 mg IVx 1. Objective Data Objective Data Vital Signs: Vital Signs Temp Pulse Resp BP Pulse Ox O2 Del Method O2 Flow Rate 98.5 F 83 22 H 122/57 H 98 Nasal Cannula 3 12/29/24 01:00 12/29/24 06:00 12/29/24 06:00 12/29/24 06:00 12/29/24 06:00 12/29/24 06:52 12/29/24 06:52 FiO2 30 12/28/24 11:25 Oxygen Flow Rate (L/min) 3 Oxygen Delivery Method Nasal Cannula Weight: 162 lb 14.746 oz Body Mass Index (BMI) 27.9 Intake & Output: Intake and Output for Last 24 Hours 12/27/24 12/28/24 12/29/24 23:59 23:59 23:59 Intake Total 1300 / 1300 799.5 / 799.5 Output Total 400 / 400 1 / 301 300 / 300 Balance 900 / 900 798.5 / 498.5 -300 / -300 Lab / Micro Data Attestation: I reviewed the patient's lab results. 12/29/24 10:01 12/29/24 10:01 Labs: Laboratory Results - last 24 hr 12/29/24 10:01: WBC 7.6, RBC 3.15 L, Hgb 8.4 L, Hct 26.6 L, MCV 84.4, MCH 26.7 L, MCHC 31.6 L, RDW Std Deviation 43.0, RDW Coeff of Augustin 14.0, Plt Count 169, MPV9.3, Immature Gran % (Auto) 0.700, Neut% (Auto) 89.9 H, Lymph % (Auto) 6.5 L, Mineral % (Auto) 2.8, Eos % (Auto) 0.0, Baso % (Auto) 0.1, Absolute Neuts (auto) 6.8, Absolute Lymphs (auto) 0.49 L, Nucleated RBC % 0, Sodium 140, Potassium 4.4, Chloride 94 L, Carbon Dioxide 38.0 H, Anion Gap 8, BUN 21 H, Creatinine 0.55 L, Estim Creat Clear Calc 65.36, Est GFR (MDRD) Non-Af 99, BUN/Creatinine Ratio 37.4 H, Glucose 97, Calcium 8.7 Micro: Microbiology 12/26/24 21:26 Sputum, Expectorated/Coughed Gram Stain - Final 12/26/24 21:26 Sputum, Expectorated/Coughed Respiratory Culture - Final 12/26/24 20:48 Mucosa - Nasopharyngeal Respiratory Panel (PCR) - Final Rhythm Strip Rhythm Strip: Sinus Rhythm Rate: 99 Ectopy: None Social Homelessness:: Sheltered Physical Exam Const alert and oriented x3 General Appearance: cooperative Orientation / Consciousness: awake, oriented to person, oriented to place and oriented to time Exam Limitations: no limitations HEENT normocephalic Eyes Eyes Narrative: Corrective lenses Neck full ROM Lymph Lymphatic: no lymphadenopathy noted Chest inspection of chest normal Resp Effort and Inspection: able to speak in complete sentences, tachypneic, pursed lip breathing and audible wheezes Auscultation: crackles and diminished lung sounds Cardio regular rate GI normal to inspection, nondistended, normoactive bowel sounds no CVA tenderness Back/Spine no CVA tenderness Extremity normal to inspection Skin no rashes or lesions noted Neuro oriented x3 Psych Mood & Affect: anxious Charges/Coding Palliative Care Palliative Care: [id number] Follow up 35-49 min Consulation Summary Current admission Current Code Status: full code Associated Diagnosis: COPD Consult Data Date of Consult: 12/28/24 Location of consult: PCU Reason for referral: goals of care and code status Referral source: Sienna Schafer Palliative care diagnosis (Summary list): COPD exacerbation Palliative care services/treatment (Accepted, as consult): accepted Case discussed with referring provider: provider notes Palliative Assessment Advanced Directive - Current Admission Advance Directive: Advance Directive ON ADMISSION - REFERENCE 3 Do you have a Healthcare No 12/26/24 21:29 Living Will? Do you have a Healthcare Power No 12/26/24 21:29 of Vamp Throater? Do You Want Additional Declined 12/26/24 21:29 Information on Advanced Directives or Healthcare Proxy/DPOA comments: Significant other, Mike Symptoms Dyspnea symptoms: Severe Constipation symptoms: None Nausea symptoms: None Vomiting symptoms: None Depression symptoms: Moderate Anorexia symptoms: None Cough symptoms: Moderate Insomnia symptoms: Mild Diarrhea symptoms: None Fatigue symptoms: Mild Weakness symptoms: Mild Confusion symptoms: None Impression & Recommendations Impressions Impressions: Patient would benefit from palliative care outpatient services. Recommentation Palliative recommendations: I do recommend that the patient receives outpatient palliative. Encouter Achieved as a result of this Palliative Care Encounter: [[id number], [phone] ] minutes were spent in total for this visit which consisted, primarily of counseling and education dealing with the complex and emotionally intense issues of symptom managementand palliative care in the setting of serious and potentially life-threatening illness. Review of do cumentation, labs and radiological studies. ?Patient/family had the opportunity to ask questions Plan (1) COPD with acute exacerbation: PLAN: Medical management per primary team (2) Respiratory insufficiency: PLAN: Medical management per primary team (3) Anxiety and depression: PLAN: Recommend aggressive anxiety management for improved respiratory status (4) Palliative care encounter: PLAN: Palliative care outpatient referral ROS Constitutional Constitutional: Reports systems reviewed and no addt'l complaints, except as documented Eyes Eyes: Reports systems reviewed and no addt'l complaints, except as documented ENT HEENT: Reports systems reviewed and no addt'l complaints, except as documented Cardiovascular Cardiovascular: Reports dyspnea, dyspnea at rest and dyspnea on exertion Respiratory/Chest Respiratory/Chest: Reports chest congestion, chest tightness, cough, dyspnea, dyspnea on exertion and wheezing Gastrointestinal Gastrointestinal: Reports other Details: States that she is feeling better today Genitourinary Genitourinary: Reports systems reviewed and no addt'l complaints, except as documented Musculoskeletal Musculoskeletal: Reports systems reviewed and no addt'l complaints, except as documented Integumentary Integumentary: Reports systems reviewed and no addt'l complaints, except as documented Neurologic Neurologic: Reports systems reviewed and no addt'l complaints, except as documented Psychiatric Psychiatric: Reports anxiety and other Details: Patient does have severe anxietywhich does affect her breathing. Endocrine Endocrinology: Reports systems reviewed and no addt'l complaints, except as documented Hematologic/Lymphatic Hematologic/Lymphatic: Reports systems reviewed and no addt'l complaints, exceptas documented Allergic/Immunologic Allergic/Immunologic: Reports systems reviewed and no addt'l complaints, except as documented 12/29/24 1124 Cosigner Signature (if applicable): CC: ~ Signed [facility]09-05-2025 Progress note Author Dionne Porter [facility] Note Date/Time December 28, 2024 11:28pm [facility] Medical Records Department [address] [place] [address] Progress Note - Hospitalist 12/28/24 2311 MR#: [id number] Acct: [id number] Name: DENIA GONZALEZ Rep #:[id number] : 1955 69 From: Dionne Porter MD PCP: Dr. Yoseph Fall MD Status:AD M IN Location: [place] [address] Hospitalist Note Patient with notable tachycardia, improved with evening medications however blood pressure is now 90/60. Will change from DuoNeb therapies to ipratropium component only for every 4 hours while awake as likely air cells contributing given COPD exacerbation presentation. 12/28/242310 <Electronically signed by Dionne Porter MD> Cosigner Signature (if applicable): CC: ~ Signed ADDENDUM by Dr. Dionne Porter MD on 12/28/24 at 232 Addendum EKG obtained and c/w PAF RVR, BP as noted prior low range from recent medications but HR still elevated. Will trial digoxin x 1, 12/28/242326<Electronically signed by Dionne Porter MD> Cosigner Signature (if applicable): cc: ~* Signed [facility] Work Phone: 1(690) 555-696709-04-2025 Progress note [facility] Medical Records Department [address] [place] [address] Progress Note - Hospitalist 12/28/242310 MR#: [id number] Acct: [id number] Name: DENIA GONZALEZ Rep #:[id number] : 1955 69 From: Dionne Porter MD PCP: Dr. Yoseph Fall MD Status:AD M IN Location: [place] [address] Hospitalist Note Patient with notable tachycardia, improved with evening medications however blood pressure is now 90/60. Will change from DuoNeb therapies to ipratropium component only for every 4 hours while awake as likely air cells contributing given COPD exacerbation presentation. 12/28/242310 Cosigner Signature (if applicable): CC: ~ Signed ADDENDUM by Dr. Dionne Porter MD on 12/28/24 at 2327 Addendum EKG obtained and c/w PAF RVR, BP as noted prior low range from recent medications but HR still elevated. Will trial digoxin x 1, 12/28/242326 Cosigner Signature (if applicable): cc: ~* Signed [facility]09-04-2025 Consult note Author Joel Hurd [facility] Note Date/Time December 28, 2024 3:26pm [facility] Medical Records Department [address] [place] [address] Anesthesia Postop Eval II 12/28/24 1526 MR#: [id number] Acct: [id number] Name: DENIA GONZALEZ Rep #:[id number] : 1955 69 From: Joel WATKINS PCP: Dr. Yoseph Fall MD Status:AD M IN Y Race: C Location: [place] [address] 2-1 Anesthesia Postop Eval I Sum Postop Eval Completion status Anesthesia document: Postop Eval 1 completed: Yes Anesthesia Postop Eval I Summary Anesthesia Postop Eval I Summary: Anesthesia Postop Eval I: Assessment Summary Airway patent Yes 12/28/24 12:05 [email or web address] Spontaneous unlabored Yes 12/28/24 12:05 [email or web address] respirations Mental status Asleep 12/28/24 12:05 [email or web address] nausea No 12/28/24 12:05 [email or web address] Vomiting No 12/28/24 12:05 [email or web address] Anesthesia Postop Eval I: Fluid Summary Crystalloid volume administer 400 12/28/24 12:05 [email or web address] (ml) Colloids volume administered ( ml) Blood Product volume administered (ml) Total IV fluid infused 400 12/28/24 12:05 [email or web address] Anesthesia Postop Eval I: Summary Notes Anesthesia Complication No 12/28/24 12:05 [email or web address] Anesthesia Complication Comment: Post-operative progress note Anesthesia: Postop Eval II Evaluation Mental status: Awake and Calm Pain Level: 0 nausea: No Vomiting: No Complications Anesthesia Complication: No 12/28/24 1526 <Electronically signed by Joel Hurd CRNA> Date _ Joel Ramirezignwilberto Signature: Date CC: ~ Signed [facility] Work Phone: 1(222) 428-958909-04-2025 Progress note Author Lynne Schafer [facility] Note Date/Time December 28, 2024 3:24pm [facility] Medical Records Department [address] [place] [address] Progress Note 12/28/24 1450 MR#: [id number] Acct: [id number] Name: DENIA GONZALEZ Rep #:[id number] : 1955 69 From: Lynne Schafer MD PCP: Dr. Yoseph Fall MD Status:AD M IN Location: [place] [address] Subjective Subjective Patient seen and examined with her nurse by her bedside. She had no complaints. SHe remained on 3L of oxygen which is her baseline. Review of systems is otherwise negative. She had EGD this morning which showed Objective Data Objective Data Vital Signs: Vital Signs Temp Pulse Resp BP Pulse Ox O2 Del Method O2 Flow Rate 98.5 F 99 18 130/72 H 97 Nasal Cannula 3 12/28/24 13:04 12/28/24 13:04 12/28/24 13:04 12/28/24 13:04 12/28/24 13:04 12/28/24 13:32 12/28/24 13:32 FiO2 30 12/28/24 11:25 Oxygen Flow Rate (L/min) 3 Oxygen Delivery Method Nasal Cannula Weight: 164 lb 14.492 oz Body Mass Index (BMI) 28.3 Intake & Output: Intake and Output for Last 24 Hours 12/26/24 12/27/24 12/28/24 23:59 23:59 23:59 Intake Total 120 / 120 1300 / 1300 139.5 / 139.5 Output Total 400 / 400 Balance 120 / 120 900 / 900 138.5 / 138.5 Lab / Micro Data 12/28/24 04:39 12/28/24 04:39 Labs: Laboratory Results - last 24 hr 12/28/24 04:39: WBC 10.6, RBC 3.14 L, Hgb 8.5 L, Hct 26.4 L, MCV 84.1, MCH 27.1,MCHC 32.2, RDW Std Deviation 42.5, RDW Coeff of Augustin 13.8, Plt Count 203, MPV 9.4, Immature Gran % (Auto) 0.800, Neut % (Auto) 90.6 H, Lymph % (Auto) 5.5 L, Mineral % (Auto) 3.0, Eos % (Auto) 0.0, Baso % (Auto) 0.1, Absolute Neuts (auto) 9.6 H, Absolute Lymphs (auto) 0.58 L, Nucleated RBC % 0, Sodium 139, Potassium 4.6, Chloride 93 L, Carbon Dioxide 37.2 H, Anion Gap 9, BUN 23 H, Creatinine 0.59 L, Estim Creat Clear Calc 64.18, Est GFR (MDRD) Non-Af 97, BUN/Creatinine Ratio 39.3 H, Glucose 132 H, Calcium 9.1 Micro: Microbiology 12/26/24 21:26 Sputum, Expectorated/Coughed Gram Stain - Final 12/26/24 21:26 Sputum, Expectorated/Coughed Respiratory Culture - Final 12/26/24 20:48 Mucosa - Nasopharyngeal Respiratory Panel (PCR) - Final Rhythm Strip Rhythm Strip: Sinus Rhythm Rate: 99 Ectopy: None Social Homelessness:: Sheltered Physical Exam Const alert, oriented x3 and no apparent distress General Appearance: cooperative HEENT normocephalic, head/scalp atraumatic, moist oral mucous membranes and oropharynxnormal Eyes EOMs intact bilaterally Neck supple and no JVD Lymph Lymphatic: no lymphedema noted Resp Resp Narrative: mildly diminished breath sounds bibasally, no wheezes or crackles. Remains on 3Lof oxygen by nasal canula Cardio regular rate, regular rhythm, S1 normal heart sound and S2 normal heart sound Cardio Narrative: grade 3-4 ejection systolic murmur over the aortic valve region GI normal to inspection, nondistended, normoactive bowel sounds, soft to palpation and non-tender Extremity normal capillary refill, no clubbing, cyanosis or edema and no calf tenderness General Extremity: no tenderness to palpation of joints or extremities Skin General Skin Exam: no breakdown Neuro CN's II-XII intact bilaterally and no focal motor deficits Motor Exam: general weakness Psych thought process normal and cooperative Appearance: appropriate Assessment & Plan Assessment/Plan (1) Acute respiratory insufficiency: (2) COPD with acute exacerbation: PLAN: Plan #Acute COPD exacerbation in the setting of chronic respiratory failure * On 3 L of oxygen which is her baseline. On breathing treatments bronchodilators. On IV Solu-Medrol. * Titrate oxygen as needed to be to saturation above 90%. Respiratory panel was negative. Currently on cefdinir. #Acute anemia: * Was started on Eliquis during most recent admission for A-fib. No globin is down to around 8. Stool for occult blood pending. * Iron panel showed evidence of iron deficiency anemia. Will consult gastroenterology. 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 * Hb today is 8.5. * #Hypokalemia: resolved. K is 4.6 today. # History of non-small cell lung cancer: S/p right lung lobectomy. In remission. #Severe aortic valve stenosis: * 2D echo from 11/03/2024 showed severe concentric left ventricular hypertrophy with EF of 70% and stage I diastolic dysfunction. * To follow-up at [facility] as scheduled for evaluation for TAVR. * On Multaq, Coreg and verapamil. * #Hypertension: On Coreg and verapamil. IV hydralazine as needed #History of paroxysmal A-fib: On Coreg and Multaq. Eliquis held in light of anemia. #GERD: On PPI DVT prophylaxis: SCDs Disposition: likely dc tomorrow. Charges/Coding Visit Charges Inpatient E&M: 07866 Subs Hosp L2 12/28/24 1524 <Electronically signed by Lynne Schafer MD> Lynne Schafer MD Cosigner Signature (if applicable): CC: ~ Signed [facility] Work Phone: 1(660) 223-430509-04-2025 Consult note [facility] Medical Records Department [address] [place] [address] Anesthesia Postop Eval II 12/28/24 1526 MR#: [id number] Acct: [id number] Name: DENIA GONZALEZ Rep #:[id number] : 1955 69 From: Joel Nguyen RNA PCP: Dr. Yoseph Fall MD Status:AD M IN Y Race: C Location: [place] [address] 2-1 Anesthesia Postop Eval I Sum Postop Eval Completion status Anesthesia document: Postop Eval 1 completed: Yes Anesthesia Postop Eval I Summary Anesthesia Postop Eval I Summary: Anesthesia Postop Eval I: Assessment Summary Airway patent Yes 12/28/24 12:05 [email or web address] Spontaneous unlabored Yes 12/28/24 12:05 [email or web address] respirations Mental status Asleep 12/28/24 12:05 [email or web address] nausea No 12/28/24 12:05 [email or web address] Vomiting No 12/28/24 12:05 [email or web address] Anesthesia Postop Eval I: Fluid Summary Crystalloid volume administer 400 12/28/24 12:05 [email or web address] (ml) Colloids volume administered ( ml) Blood Product volume administered (ml) Total IV fluid infused 400 12/28/24 12:05 [email or web address] Anesthesia Postop Eval I: Summary Notes Anesthesia Complication No 12/28/24 12:05 [email or web address] Anesthesia Complication Comment: Post-operative progress note Anesthesia: Postop Eval II Evaluation Mental status: Awake and Calm Pain Level: 0 nausea: No Vomiting: No Complications Anesthesia Complication: No 12/28/24 1526 PHP DEVELOPER> Date _ Joel Hurd PHP DEVELOPER Cosigner Signature: Date CC: ~ Signed [facility]09-04-2025 Progress note [facility] Medical Records Department [address] [facility] [place] [address] Progress Note 12/28/24 1450 MR#: [id number] Acct: [id number] Name: DENIA GONZALEZ Rep #:[id number] : 1955 69 From: Lynne Schafer MD PCP: Dr. Yoseph Fall MD Status:AD M IN Location: [place] [address] Subjective Subjective Patient seen and examined with her nurse by her bedside. She had no complaints. SHe remained on 3L of oxygen which is her baseline. Review of systems is otherwise negative. She had EGD this morning which showed Objective Data Objective Data Vital Signs: Vital Signs Temp Pulse Resp BP Pulse Ox O2 Del Method O2 Flow Rate 98.5 F 99 18 130/72 H 97 Nasal Cannula 3 12/28/24 13:04 12/28/24 13:04 12/28/24 13:04 12/28/24 13:04 12/28/24 13:04 12/28/24 13:32 12/28/24 13:32 FiO2 30 12/28/24 11:25 Oxygen Flow Rate (L/min) 3 Oxygen Delivery Method Nasal Cannula Weight: 164 lb 14.492 oz Body Mass Index (BMI) 28.3 Intake & Output: Intake and Output for Last 24 Hours 12/26/24 12/27/24 12/28/24 23:59 23:59 23:59 Intake Total 120 / 120 1300 / 1300 139.5 / 139.5 Output Total 400 / 400 1 / 1 Balance 120 / 120 900 / 900 138.5 / 138.5 Lab / Micro Data 12/28/24 04:39 12/28/24 04:39 Labs: Laboratory Results - last 24 hr 12/28/24 04:39: WBC 10.6, RBC 3.14 L, Hgb 8.5 L, Hct 26.4 L, MCV 84.1, MCH 27.1,MCHC 32.2, RDW Std Deviation 42.5, RDW Coeff of Augustin 13.8, Plt Count 203, MPV 9.4, Immature Gran % (Auto) 0.800, Neut % (Auto) 90.6 H, Lymph % (Auto) 5.5 L, Mineral % (Auto) 3.0, Eos % (Auto) 0.0, Baso % (Auto) 0.1, Absolute Neuts (auto) 9.6 H, Absolute Lymphs (auto) 0.58 L, Nucleated RBC % 0, Sodium 139, Potassium 4.6, Chloride 93 L, Carbon Dioxide 37.2 H, Anion Gap 9, BUN 23 H, Creatinine 0.59 L, Estim Creat Clear Calc 64.18, Est GFR (MDRD) Non-Af 97, BUN/Creatinine Ratio 39.3 H, Glucose 132 H, Calcium 9.1 Micro: Microbiology 12/26/24 21:26 Sputum, Expectorated/Coughed Gram Stain - Final 12/26/24 21:26 Sputum, Expectorated/Coughed Respiratory Culture - Final 12/26/24 20:48 Mucosa - Nasopharyngeal Respiratory Panel (PCR) - Final Rhythm Strip Rhythm Strip: Sinus Rhythm Rate: 99 Ectopy: None Social Homelessness:: Sheltered Physical Exam Const alert, oriented x3 and no apparent distress General Appearance: cooperative HEENT normocephalic, head/scalp atraumatic, moist oral mucous membranes and oropharynxnormal Eyes EOMs intact bilaterally Neck supple and no JVD Lymph Lymphatic: no lymphedema noted Resp Resp Narrative: mildly diminished breath sounds bibasally, no wheezes or crackles. Remains on 3Lof oxygen by nasal canula Cardio regular rate, regular rhythm, S1 normal heart sound and S2 normal heart sound Cardio Narrative: grade 3-4 ejection systolic murmur over the aortic valve region GI normal to inspection, nondistended, normoactive bowel sounds, soft to palpation and non-tender Extremity normal capillary refill, no clubbing, cyanosis or edema and no calf tenderness General Extremity: no tenderness to palpation of joints or extremities Skin General Skin Exam: no breakdown Neuro CN's II-XII intact bilaterally and no focal motor deficits Motor Exam: general weakness Psych thought process normal and cooperative Appearance: appropriate Assessment & Plan Assessment/Plan (1) Acute respiratory insufficiency: (2) COPD with acute exacerbation: PLAN: Plan #Acute COPD exacerbation in the setting of chronic respiratory failure * On 3 L of oxygen which is her baseline. On breathing treatments bronchodilators. On IV Solu-Medrol. * Titrate oxygen as needed to be to saturation above 90%. Respiratory panel was negative. Currentlyon cefdinir. #Acute anemia: * Was started on Eliquis during most recent admission for A-fib. No globin is down to around 8. Stool for occult blood pending. * Iron panel showed evidence of iron deficiency anemia. Will consult gastroenterology. * EGD showed normal esophagus and hematin in the gatric body as well as oozing gastric ulcers whichwere treated with a heater probe, and 2 nonbleeding angiodysplastic lesions in the duodenum which were treated with a heater probe. * Hb today is 8.5. * #Hypokalemia: resolved. K is 4.6 today. # History of non-small cell lung cancer: S/p right lung lobectomy. In remission. #Severe aortic valve stenosis: * 2D echo from 11/03/2024 showed severe concentric left ventricular hypertrophy with EF of 70% and stage I diastolic dysfunction. * To follow-up at [facility] as scheduled for evaluation for TAVR. * On Multaq, Coreg and verapamil. * #Hypertension: On Coreg and verapamil. IV hydralazine as needed #History of paroxysmal A-fib: On Coreg and Multaq. Eliquis held in light of anemia. #GERD: On PPI DVT prophylaxis: SCDs Disposition: likely dc tomorrow. Charges/Coding Visit Charges Inpatient E&M: 87713 Subs Hosp L2 12/28/24 1524 Lynne Higgins Signature (if applicable): CC: ~ Signed [facility]09-04-2025 Consult note Author Saul Liao [facility] Note Date/Time December 28, 2024 12:05pm [facility] Medical Records Department [address] [place] [address] Anesthesia Postop Eval I 12/28/241201 MR#: [id number] Acct: [id number] Name: DENIA GONZALEZ Rep #:[id number] : 1955 69 From: Saul Liao PCP: Dr. Yoseph Fall MD Status:AD M IN Y Race: C Location: [place] [address] 21 Anesthesia: Postop Eval I Current Vital Signs Temperature: 97 F Pulse Rate: 101 Blood Pressure: 119/72 Respiratory Rate: 18 Pulse Ox: 97 Oxygen Delivery Method: Nasal Cannula Oxygen Flow Rate (L/min): 3 Assessment Airway patent: Yes Spontaneous unlabored respirations: Yes Mental status: Asleep nausea: No Vomiting: No Anesthesia Complication: No Fluid Hydration Crystalloid volume administer (ml): 400 Total IV fluid infused: 400 Progress Note Anesthesia document: Postop Eval 1 completed: Yes 12/28/241204 <Electronically signed by Saul Liao > Date _ Saul Higgins Signature: Date CC: ~ Signed [facility] Work Phone: 1(291) 630-879009-04-2025 Consult note Author Lawson Henry [facility] Note Date/Time December 28, 2024 11:25am [facility] Medical Records Department [address] [place] [address] Pre-Anesthesia Evaluation 12/28/24 1121 MR#: [id number] Acct: [id number] Name: DENIA GONZALEZ Rep #:[id number] : 1955 69 From: Lawson Henry MD PCP: Dr. Yoseph Fall MD Status:AD M IN Y Race: C Location: [place] [address] 2-1 ASA Classification* ASA Classification ASA Classification: 3 Assessment & Plan Anesthesia* Anesthesia Assessment Anesthesia Assessment: Discussed sedation and/or anesthesia options, risks, benefits, and alternatives with patient/parents/legal guardian/POA. Questions invited. The patient/parents/legal guardian/POA seems to understand and agrees to proceedwith anesthesia plan. Reviewed the physical assessment, medical history, allergy history and patient home medications list prior to surgery/procedure/anesthetic and documented any changes. Performed airway and anesthesia risk assessments. Anesthesia Type Anesthesia Type: MAC History Source History Obtained from:: Patient and Chart Anesthesia Focused Assessment* Temperature: 98.6 F Pulse Rate: 94 Blood Pressure: 136/78 Respiratory Rate: 16 Pulse Ox: 95 Oxygen Delivery Method: Nasal Cannula Oxygen Flow Rate (L/min): 3 Fraction of Inspired Oxygen (FIO2): 30 Airway Assessment Mouth opens: >3 cm Mallampati Score: IV Teeth Condition: Missing (Missing several teeth. Not the teeth you have they are all tight the rest are tight. You have an) Neck Range of motion (ROM): Limited ROM (Severe Restriction) Labs Anesthesia Preop lab: CBC WBC 10.6 K/mm3 (4.4-11.0) 12/28/24 04:39 12/28/24 RBC 3.14 M/mm3 (4.2-5.4) L 12/28/24 04:39 12/28/24 Hgb 8.5 g/dL (12.0-15.0) L 12/28/24 04:39 12/28/24 Hct 26.4 % (37-47) L 12/28/24 04:39 12/28/24 Plt Count 203 K/mm3 (150-450) 12/28/24 04:39 12/28/24 CHEMISTRY Potassium 4.6 mmol/L (3.3-5.1) 12/28/24 04:39 12/28/24 Sodium 139 mmol/L (133-145) 12/28/24 04:39 12/28/24 Magnesium 1.9 mg/dL (1.5-2.2) 12/26/24 17:57 12/26/24 Phosphorus 2.4 mg/dL (2.5-4.9) L 07/20/23 06:35 07/20/23 BUN 23 mg/dL (4-19) H 12/28/24 04:39 12/28/24 Creatinine 0.59 mg/dL (0.70-1.20) L 12/28/24 04:39 Glucose 132 mg/dL (70-99) H 12/28/24 04:39 12/28/24 TSH 0.281 uIU/mL (0.300-4.200) L 10/02/24 09:31 COAG Pre-Assessment Diagnosis/Proposed Procedure Planned Operative Procedure(s): Esophagogastroduodenoscopy Anesthesia History 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 When Was Last Pacemaker Check QUESTION #4 FULL TEXT: You/Your Family Experience fever (hyperthermia) with Anesthesia Last Oral Intake Last Oral intake: Last Oral Intake NPO since Meds taken in AM with sips of No 12/28/24 09:46 water? Meds patient instructed to take am of surgery Any additional information?: Yes NPO since: 00:00 Meds taken in AM with sips of water?: No PONV PONV - diamond grader: PONV - diamond grader Female HX of Motion Sickness HX of N/V After Surgery Non-Smoker Duration of Surgery greater than 60 minutes Number of Risk Factors PONV Score Height & Weight Height & Weight: Anesthesia: Height & Weight Height 5 ft 4 in 12/28/24 09:46 Weight: 74.8 kg 12/28/24 09:46 Body Mass Index (BMI) 28.3 12/28/24 09:46 Respiratory Assessment Respiratory Assessment - diamond grader: Respiratory Tract Infection Hx - diamond grader Hx Respiratory Tract Infection No 12/27/24 20:12 STOP Sleep Apnea STOP Sleep Apnea - diamond grader: STOP Sleep Apnea - diamond grader Hx Hypertension Yes 12/26/24 21:29 Hx Sleep Apnea No 12/26/24 21:29 CPAP No 12/26/24 21:29 BIPAP No 12/26/24 21:29 Do you snore loudly (louder No 12/26/24 21:29 than talking or can be heard Do you often feel tired/ Yes 12/26/24 21:29 fatigued/ sleepy during daytime? Has anyone observed you stop No 12/26/24 21:29 breathing during sleep? STOP Results Positive 12/26/24 21:29 QUESTION #5 FULL TEXT : Do you snore loudly (louder than talking or can be heard through closed doors)? 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 Specify any problems Hx of Preganancy in last 3 No 12/26/24 21:29 Months Nurse Filling Out Transfusion DCORPORAL 12/26/24 21:29 & Questions: Date: 12/26/24 12/26/24 21:29 Time: 21:30 12/26/24 21:29 Patient unable to answer at this time (ie. confused, unrespo /Reproduction History /Reproductive History - diamond grader: /Reproductive Hx- diamond grader Hx Now No 12/27/24 20:12 Gestational Age (in weeks): EDC: Hx Hx Para Hx Section SAB No 12/27/24 20:12 Active Medications Active Medications: Current Medications Generic Name Dose Route Start Last Admin Trade Name Freq PRN Reason Stop Dose Admin Acetaminophen 650 mg 12/26/24 21:09 Acetaminophen 325 Mg Tablet PO Q4H PRN PRN Fever, pain 1-10/10 Hydrocodone Bitart/Acetaminophen 1 tablet 12/26/24 21:09 12/27/24 21:40 Hydrocodone Bitartrate/Apap 5/325 Tablet PO 1 tablet BID PRN PRN Administration pain 1-10 Al Hydroxide/Mg Hydroxide 30 ml 12/26/24 21:09 Mag Hydrox/Al Hydrox/Simeth 30 Ml Udc PO Q6H PRN PRN Gastric Burning Albuterol Sulfate 2.5 mg 12/26/24 21:09 12/27/24 12:45 Albuterol 2.5 Mg/3 Ml Vial.Neb. INHALATION 2.5 mg Q2H PRN PRN Administration Dyspnea, wheezing Albuterol/Ipratropium 3 ml 12/26/24 22:00 12/28/24 07:25 Ipratropium/Albuterol Sulfate 3 Ml Ampul.Neb INHALATION 3 ml Q4HWA.RT HINA Administration Buspirone HCl 10 mg 12/26/24 22:00 12/27/24 21:41 Buspirone 5 Mg Tablet PO 10 mg BID HINA Administration Carvedilol 6.25 mg 12/27/24 08:00 12/27/24 18:03 Carvedilol 6.25 Mg Tablet PO 6.25 mg BIDCM HINA Administration Protocol Cefdinir 300 mg 12/26/24 22:00 12/27/24 21:43 Cefdinir 300 Mg Capsule PO 12/31/24 10:01 300 mg Q12 HINA Administration Dronedarone 400 mg 12/26/24 22:00 12/27/24 21:42 Dronedarone Hydrochloride 400 Mg Tablet PO 400 mg BID HINA Administration Fluticasone Propionate 1 spray 12/27/24 10:00 12/27/24 10:21 Fluticasone 0.05% 1 [place] Nasal.Sry NASAL 1 spray DAILY HINA Administration Guaifenesin 10 ml 12/26/24 21:09 12/27/24 18:06 Guaifenesin 10 Ml Udc (200mg/10ml) PO 10 ml Q4H PRN PRN Administration COUGH/CONGESTION Hydralazine HCl 10 mg 12/26/24 21:09 Hydralazine 20 Mg/Ml Vial IV Q4H PRN PRN SBP > 160 Protocol Sodium Chloride 250 mls @ 15 mls/hr 12/26/24 21:24 IV .[id number] PRN Saline Flush Sodium Chloride 250 mls @ 15 mls/hr 12/26/24 21:24 IV .[id number] PRN Additional IVPB Infusion Pantoprazole Sodium 40 mg/ 100 mls @ 300 mls/hr 12/27/24 22:00 12/27/24 22:05 Sodium Chloride IV Infused Q12 HINA Infusion Lactated Ringer's 1,000 mls @ 15 mls/hr 12/28/24 10:45 12/28/24 10:52 IV 15 mls/hr .Q48H HINA Administration Lorazepam 0.5 mg 12/26/24 22:00 12/27/24 21:40 Lorazepam 0.5 Mg Tablet PO 0.5 mg QHS HINA Administration Melatonin 3 mg 12/26/24 21:09 Melatonin 3 Mg Tablet PO QHS PRN PRN INSOMNIA Methylprednisolone Sodium Succinate 40 mg 12/27/24 06:00 12/28/24 06:29 Methylprednisolone Sod Succ 40 Mg/Ml Vial IV 40 mg Q8 HINA Administration Montelukast Sodium 10 mg 12/27/24 10:00 12/27/24 10:20 Montelukast 10 Mg Tablet PO 10 mg DAILY HINA Administration Nicotine 7 mg 12/27/24 15:00 12/27/24 15:25 Nicotine (Pbkc) 7 Mg Patch TD 7 mg DAILY HINA Administration Ondansetron HCl 4 mg 12/26/24 21:09 Ondansetron 4 Mg/2 Ml Vial IV Q8H PRN PRN NAUSEA/VOMITING Pramipexole Dihydrochloride 0.125 mg 12/26/24 22:00 12/27/24 21:42 Pramipexole Di-Hcl 0.125 Mg Tablet PO 0.125 mg QHS HINA Administration Senna/Docusate Sodium 2 tablet 12/26/24 21:09 Senna/Docusate Sodium 1 Tablet PO BID PRN PRN Constipation Sertraline HCl 100 mg 12/26/24 22:00 12/27/24 21:43 Sertraline 100 Mg Tablet PO 100 mg BID HINA Administration Sodium Chloride 10 - 40 ml 12/26/24 21:24 12/28/24 06:29 0.9% Saline Lock 10 Ml Syringe IV 10 ml UD PRN Administration SALINE FLUSH Verapamil HCl 180 mg 12/26/24 22:00 12/27/24 21:41 Verapamil Sr 180 Mg Capsule PO 180 mg BID HINA Administration Protocol [facility] Medical History Afib Aortic valve stenosis RLS [...] bp #60 tabs 0 11/03/24 Unknown Rx furosemide 20 mg tablet 20 mg PO DAILY fluid overloa d 12/27/24 Unknown History simethicone 250 mg capsule (Gas-X) 250 mg PO BID gas 0 12/27/24 Unknown History Allergy/AdvReac Type Severity Reaction Status Date / Time No Known Allergies Allergy Verified 12/26/24 13:56 Family History Mother Hypertension Throat cancer Father Hypertension Stomach cancer Surgical History H/O exploratory laparotomy History of lung surgery History of cholecystectomy Social History household members: significant other and none housing: apartment Smoking Status: Former smoker alcohol intake: former substance use type: does not use Homelessness:: Sheltered Review of Systems (Anesthesia) ROS Narrative System reviewed and no additional complaints, except as documented. 12/28/24 1125 <Electronically signed by Lawson meehan MD> Date _ Lawson Henry MD Cosigner Signature: Date CC: ~ Signed [facility] Work Phone: 1(497) 280-969309-04-2025 Consult note Author Kyle Mendenhall [facility] Note Date/Time December 28, 2024 11:19am [facility] Medical Records Department [address] [place] [address] Consultation - GI 12/28/24 1116 MR#: [id number] Acct: [id number] Name: DENIA GONZALEZ Rep #:[id number] : 1955 69 From: Kyle Mendenhall DO PCP: Dr. Yoseph Fall MD Status:AD M IN Location: [place] [id number]- HPI Consult Data Date of Consult: 12/28/24 HPI Narrative Reason for Consultation: Anemia HPI Narrative: DENIA GONZALEZ, is a 69-year-old female presented to the ER with 3 to 4 days of productive cough with small amount of yellow sputum. She also admitted to increased dyspnea and chest tightness that wraps around to her back. She does suffer from severe COPD and anxiety. She also has a history of atrial fibrillation on Eliquis. I was asked to see her due to decreasing hemoglobin. [facility] Medical History Afib Aortic valve stenosis RLS [...] bp #60 tabs 0 11/03/24 Unknown Rx furosemide 20 mg tablet 20 mg PO DAILY fluid overloa d 12/27/24 Unknown History simethicone 250 mg capsule (Gas-X) 250 mg PO BID gas 0 12/27/24 Unknown History Allergy/AdvReac Type Severity Reaction Status Date / Time No Known Allergies Allergy Verified 12/26/24 13:56 Family History Mother Hypertension Throat cancer Father Hypertension Stomach cancer Surgical History H/O exploratory laparotomy History of lung surgery History of cholecystectomy Social History household members: significant other and none housing: apartment Smoking Status: Former smoker alcohol intake: former substance use type: does not use Homelessness:: Sheltered Physical Exam Const alert, oriented x3, no apparent distress and healthy appearing General Appearance: cooperative GI normal to inspection, nondistended, normoactive bowel sounds, soft to palpation,non-tender and non-distended Percussion: normal to percussion Rectal Exam: deferred Lab / Micro Data 12/28/24 04:39 12/28/24 04:39 Labs: Laboratory Results - last 24 hr 12/27/24 05:50: Iron 17 L, TIBC 305, Iron Saturation 6.0 L, Unsaturated IBC 288,Ferritin 35 12/28/24 04:39: WBC 10.6, RBC 3.14 L, Hgb 8.5 L, Hct 26.4 L, MCV 84.1, MCH 27.1,MCHC 32.2, RDW Std Deviation 42.5, RDW Coeff of Augustin 13.8, Plt Count 203, MPV 9.4, Immature Gran % (Auto) 0.800, Neut % (Auto) 90.6 H, Lymph % (Auto) 5.5 L, Mineral % (Auto) 3.0, Eos % (Auto) 0.0, Baso % (Auto) 0.1, Absolute Neuts (auto) 9.6 H, Absolute Lymphs (auto) 0.58 L, Nucleated RBC % 0, Sodium 139, Potassium 4.6, Chloride 93 L, Carbon Dioxide 37.2 H, Anion Gap 9, BUN 23 H, Creatinine 0.59 L, Estim Creat Clear Calc 64.18, Est GFR (MDRD) Non-Af 97, BUN/Creatinine Ratio 39.3 H, Glucose 132 H, Calcium 9.1 Micro: Microbiology 12/26/24 21:26 Sputum, Expectorated/Coughed Gram Stain - Final 12/26/24 21:26 Sputum, Expectorated/Coughed Respiratory Culture - Final Rhythm Strip Rhythm Strip: Sinus Rhythm Rate: 99 Ectopy: None Assessment & Plan Assessment/Plan (1) Acute anemia: PLAN: She should undergo an upper endoscopy. This is particularly important dueto the fact that she needs to stay on anticoagulation for atrial fibrillation. She was explained alternatives, risk and benefits clued understanding bleeding, infection, septal, perforation, need for change and . She will have an ASAof 3. Charges/Coding Visit Charges Inpatient E&M: 60105 Init Hosp L3 12/28/24 1119 <Electronically signed by Kyle Mendenhall DO> Cosigner Signature (if applicable): CC: Dr. Yoseph Fall MD~ Signed [facility] Work Phone: 1(496) 871-141309-04-2025 Consult note [facility] Medical Records Department [address] [place] [address] Anesthesia Postop Eval I 12/28/241201 MR#: [id number] Acct: [id number] Name: DENIA GONZALEZ Rep #:[id number] : 1955 69 From: Saul Liao PCP: Dr. Yoseph Fall MD Status:AD M IN Y Race: C Location: [address] Anesthesia: Postop Eval I Current Vital Signs Temperature: 97 F Pulse Rate: 101 Blood Pressure: 119/72 Respiratory Rate: 18 Pulse Ox: 97 Oxygen Delivery Method: Nasal Cannula Oxygen Flow Rate (L/min): 3 Assessment Airway patent: Yes Spontaneous unlabored respirations: Yes Mental status: Asleep nausea: No Vomiting: No Anesthesia Complication: No Fluid Hydration Crystalloid volume administer (ml): 400 Total IV fluid infused: 400 Progress Note Anesthesia document: Postop Eval 1 completed: Yes 12/28/241204 > Date _ Saul Higgins Signature: Date CC: ~ Signed [facility]09-04-2025 Procedure note [facility] Medical Records Department [address] [place] [address] EGD Report MR#: [id number] Acct: [id number] Name: DENIA GONZALEZ Rep #:[id number] : 1955 69 From: Kyle Mendenhall DO PCP: Dr. Yoseph Fall MD Status:AD M IN Patient Name: Denia Gonzalez Procedure Date: 12/28/2024 11:39 AM Date of : 1955 Age: 69 Procedure: Upper GI endoscopy Indications: Acute post hemorrhagic anemia Providers: Kyle Mendenhall DO Medicines: Monitored Anesthesia Care Patient Profile: This is a 69 year old female. Refer to note in patient chart for documentation of history and physical. Patient has symptoms. Complications: No immediate complications. Procedure: Pre-Anesthesia Assessment: - Prior to the procedure, a History and Physical was performed, and patient medications and allergies were reviewed. The patient is competent. The risks and benefits of the procedure and the sedation options and risks were discussed with the patient. All questions were answered and informed consent was obtained. Patient identification and proposed procedure were verified by the physician in the pre-procedure area. Mental Status Examination: alert and oriented. Airway Examination: normal oropharyngeal airway and neck mobility. Respiratory Examination: clear to auscultation. CV Examination: normal. Prophylactic Antibiotics: The patient does not require prophylactic antibiotics. Prior Anticoagulants: The patient has taken no anticoagulant or antiplatelet agents. ASA Grade Assessment: III - A patient with severe systemic disease. After reviewing the risks and benefits, the patient was deemed in satisfactory condition to undergo the procedure. The anesthesia plan was to use monitored anesthesia care (MAC). Immediately prior to administration of medications, the patient was re-assessed for adequacy to receive sedatives. The heart rate, respiratory rate, oxygen saturations, blood pressure, adequacy of pulmonary ventilation, and response to care were monitored throughout the procedure. The physical status of the patient was re-assessed after the procedure. After obtaining informed consent, the endoscope was passed under direct vision. Throughout the procedure, the patient's blood pressure, pulse, and oxygen saturations were monitored continuously. The gastroscope was introduced through the mouth, and advanced to the fourth part of the duodenum. Small bowel enteroscopy was deemed necessary. The upper GI endoscopy was accomplished without difficulty. The patient tolerated the procedure well. Scope In: 11:40:17 AM Scope Out: 11:45:38 AM Total Procedure Duration Time 0 hours 5 minutes 21 seconds Findings: The examined esophagus was normal. Hematin (altered blood/ckfqyf-rdzxho-dwes material) was found in the gastric body. Many oozing linear gastric ulcers with pigmented material were found in the gastric body and on the greater curvature of the stomach. The largest lesion was 6 mm in largest dimension. Coagulation for hemostasis using heater probe was successful. Estimated blood loss was minimal. Two 4 mm angiodysplastic lesions without bleeding were found in the first portion of the duodenum. Coagulation for destruction of remaining portion of lesion using heater probe was successful. Estimated blood loss was minimal. Impression: - Normal esophagus. - Hematin (altered blood/sogzwc-nbanzr-ytjt material) in the gastric body. - Oozing gastric ulcers with pigmented material. Treated with a heater probe. 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 Treated with a heater probe. - No specimens collected. Recommendation: - [facility] to [facility] for [facility]. - Resume previous diet. - Continue present medications. Procedure Code(s): --- Professional --- 17268, Small intestinal endoscopy, enteroscopy beyond second portion of duodenum, not including ileum; with ablation of tumor(s), polyp(s), or other lesion(s) not amenable to removal by hot biopsy forceps, bipolar cautery or snare technique 96310, 59,51, Small intestinal endoscopy, enteroscopy beyond second portion of duodenum, not including ileum; with control of bleeding (eg, injection, bipolar cautery, unipolar cautery, laser, heater probe, stapler, plasma floor manager) CPT copyright 2021 [employer]. All rights reserved. The codes documented in this report are preliminary and upon copyright manager review may be revised to meet current compliance requirements. Kyle Mendenhall DO 12/28/2024 11:52:52 AM This report has been signed electronically. Number of Addenda: 0 Note Initiated On: 12/28/2024 11:39 AM 12/28/24 1153 Date _ Kyle Petty Signature: Date (if indicated) CC: Dr. Yoseph Fall MD; Kyle Mendenhall DO ~ Date Dictated: 12/28/24 1139 Date Transcribed: Electric Motor Repair Supervisor: RF Signed [facility]09-04-2025 Procedure note [facility] Medical Records Department [address] [facility] [place] [address] Provation Physician Letter MR#: [id number] Acct: [id number] Name: DENIA GONZALEZ Rep #:[id number] : 1955 69 From: Kyle Mendenhall DO PCP: Dr. Yoseph Fall MD Status:AD M IN 12/28/2024 Yoseph Fall [address] [place] [address] Re : Upper GI endoscopy procedure for Denia Gonzalez Dear Dr. Fall This procedure was performed on , December 28, 2024. My impressions and recommendations are as follows: Impressions : - Normal esophagus. - Hematin (altered blood/oalnkm-zvorru-phdi material) in the gastric body. - Oozing gastric ulcers with pigmented material. Treated with a heater probe. 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 Treated with a heater probe. - No specimens collected. Recommendations : - Return [facility] to [facility] for [facility] care. - Resume previous diet. - Continue present medications. My findings are described in the full procedure note, which is enclosed. If I can be of further assistance, please feel free to contact me at . Sincerely, Kyle Mendenhall DO 12/28/2024 11:52:52 AM This report has been signed electronically. 12/28/24 1153 Date _ Kyle Petty Signature: Date (if indicated) CC: STEFANIE Mendez; MAILER APPRENTICE-C Stacy Jha; MAILER APPRENTICE-C Mercedez Joseph; Dr. Dionne Porter MD; Dr. Yoseph Fall MD; Dr. Lynne Schafer MD; Dr. Alessandro Palma MD; SADIQ Paez; Kyle Mendenhall, ~ Date Dictated: 12/28/24 1139 Date Transcribed: Electric Motor Repair Supervisor: RF Signed [facility]09-04-2025 Progress note Author Stacy abdi [facility] Note Date/Time December 28, 2024 9:41am [facility] Medical Records Department [address] [place] [address] Progress Note - Palliative 12/28/24914 MR#: [id number] Acct: [id number] Name: DENIA GONZALEZ Rep #:[id number] : 1955 69 From: Stacy WATTS PCP: Dr. Yoseph Fall MD Status:AD M IN Location: [facility] UTG001- 1 Subjective Subjective 12/28/24: Prior to meeting with the patient at bedside I reviewed documentation and labs from overnight. I then met with the patient, Ting at bedside. She was sleeping upon entering my room and I did notice that while she was relaxed she breathes much easier. I did listen to her lungs while she was laying on herleft side in which her lung sounds are diminished bilaterally with some fine crackles. Patient was then gently awakened by myself and STORE ASSISTANT to do her vitals. Patient states that she feels that she is breathing much easier today. We did have an extensive discussion about relaxation and how it affects her breathing. I did teach her deep breathing exercises and guided imagery to help her during times of extreme anxiety. She does state that her granddaughter is a source of calming for her and that she will concentrate on her during these times. She was able to repeat demonstration deep breathing exercises. We also discussed her sleep overnight which she states that she did sleep very well. She does receive Ativan 0.5 mg p.o. nightly which she states that she feels is helping her. I do recommend the possibility of increasing her Ativan to twice daily to assist with keeping her more calm during hospitalization. Patient would most likely benefit from a daily as needed of Ativan for panic attacks. I did note that patient's potassium has normalized today at 4.6 from 3.0 yesterday. Her BUN is slightly elevated at 23 from 18 yesterday creatinine is 0.59. Hemoglobinand hematocrit have remained stable from yesterday. Patient states that she continues to be interested in palliative care on outpatient basis. Case management updated. All questions answered. 12/27/24: Prior to meeting with the patient at bedside I reviewed documentation, labs, and radiological studies also documentation from previous visits in September. I then met with the patient, Ting at bedside. She was sitting on the edge ofthe bed. Audible coarse crackles noted with cough. I introduced myself and theconcept of palliative care which she voluntarily excepted our services. Bradneetates that she received outpatient palliative care services previously but was told that they could not help her because she was requiring pain management. Atthis time, I do feel that the patient would benefit from palliative care from anoutpatient standpoint as she does have severe anxiety which is keeping her from having any quality of life and keeps her in her home as well as shortness of breath. Patient states that the majority of her anxiety can be attributed to her fear of running out of oxygen. She states that she only has a small tank for when she goes out of the home and that she is fearful that she will run out of oxygen. She does not have a condenser at home and only has 1 tank at home. I do feel that the patient would benefit from a condenser to help relieve her anxiety for running out of oxygen. She does state that her primary care provider has significantly reduced her pain medications at home in which she previously was receiving 120 tablets/month and that she is now down to 60. Her primary care provider did take her off of her Xanax and now has her on Zoloft twice a day and BuSpar 4 times per day. She does not feel that this combinationis working for her. Patient did become extremely anxious while talking about her medications and her breathing. It was recommended that she utilize BiPAP while in the hospital and she initially stated that she did not want to use it. She did utilize it overnight and states that it did help her. She is open to utilizing BiPAP at home. Patient states that her quality of life at home has significant significantly decreased recently. She states that she loves to fishand would like to spend time with her family at events but she is too fearful toleave her house for fear of running out of oxygen. Patient does have a significant other, Mike, who was able to help her at home she also has a neighbor who comes down to help her as well. I do feel that Ting would benefit from outpatient palliative care services in which she is open to, for anxiety and shortness of breath. She does understand that palliative care will not be able to assist her with pain management and that would be provided by herprimary care provider. Patient did endorse being a full code and states understanding of the benefits versus burdens of CPR and intubation. I also discussed the possibility of hospice in which she then also became anxious and stated that she was not ready to talk about that quite yet. All questions were answered. Palliative care will continue to follow for goals of care conversations as clinical picture evolves. HPI:The patient is a 69 y/o F w/ PMHx: Valvular Heart Disease, GERD, RLS, Anxiety and Depression, Former tobacco use, Former EtOH Abuse, Hx Non-small celllung cancer status post right lung lobectomy remotely 2003, COPD/Asthma with Chronic Hypoxic Respiratory Failure (2L NC) with allergic rhinitis, HTN who presents to the [facility] ED on 12/26/2024 with history of 3 to 4days of progressively worsening fatigue, malaise, dyspnea with chest tightness and wheezing coupled unfortunately with significant panic attacks whenever she has been attempting to leave the house with a productive cough specifically of yellow sputum prompting ED evaluation be cautious. She does report that she is supposed to have a heart cath at [facility] in the next several weeks because [...] BUN/creatinine 16/0.64, GFR 96, glucose 112, initial [id number] with repeat delta 25, chest x-ray with [...] 1 and Solu-Medrol 125 mg IVx 1. Objective Data Objective Data Vital Signs: Vital Signs Temp Pulse Resp BP Pulse Ox O2 Del Method O2 Flow Rate 97.7 F L 99 18 137/68 H 95 Nasal Cannula 3 12/28/24 06:35 12/28/24 06:35 12/28/24 06:35 12/28/24 06:35 12/28/24 06:35 12/28/24 06:35 12/28/24 06:35 FiO2 30 12/28/24 03:37 Oxygen Flow Rate (L/min) 3 Oxygen Delivery Method Nasal Cannula Weight: 164 lb 14.492 oz Body Mass Index (BMI) 28.3 Intake & Output: Intake and Output for Last 24 Hours 12/26/24 12/27/24 12/28/24 23:59 23:59 23:59 Intake Total 120 / 120 1300 / 1300 Output Total 400 / 400 Balance 120 / 120 900 / 900 Lab / Micro Data Attestation: I reviewed the patient's lab results. Lab results narrative: Patient's potassium has normalized. Hemoglobin and hematocrit remained stable from yesterday. Slightly elevated BUN from yesterday 12/28/24 04:39 12/28/24 04:39 Labs: Laboratory Results - last 24 hr 12/27/24 05:50: Iron 17 L, TIBC 305, Iron Saturation 6.0 L, Unsaturated IBC 288,Ferritin 35 12/28/24 04:39: WBC 10.6, RBC 3.14 L, Hgb 8.5 L, Hct 26.4 L, MCV 84.1, MCH 27.1,MCHC 32.2, RDW Std Deviation 42.5, RDW Coeff of Augustin 13.8, Plt Count 203, MPV 9.4, Immature Gran % (Auto) 0.800, Neut % (Auto) 90.6 H, Lymph % (Auto) 5.5 L, Mineral % (Auto) 3.0, Eos % (Auto) 0.0, Baso % (Auto) 0.1, Absolute Neuts (auto) 9.6 H, Absolute Lymphs (auto) 0.58 L, Nucleated RBC % 0, Sodium 139, Potassium 4.6, Chloride 93 L, Carbon Dioxide 37.2 H, Anion Gap 9, BUN 23 H, Creatinine 0.59 L, Estim Creat Clear Calc 64.18, Est GFR (MDRD) Non-Af 97, BUN/Creatinine Ratio 39.3 H, Glucose 132 H, Calcium 9.1 Micro: Microbiology 12/26/24 21:26 Sputum, Expectorated/Coughed Gram Stain - Final 12/26/24 21:26 Sputum, Expectorated/Coughed Respiratory Culture - Final 12/26/24 20:48 Mucosa - Nasopharyngeal Respiratory Panel (PCR) - Final Rhythm Strip Rhythm Strip: Sinus Rhythm Rate: 99 Ectopy: None Social Homelessness:: Sheltered Physical Exam Const alert and oriented x3 General Appearance: cooperative Orientation / Consciousness: oriented to person, oriented to place and oriented to time Exam Limitations: no limitations HEENT normocephalic Eyes Eyes Narrative: Wears corrective lenses Neck full ROM Resp normal respiratory effort Effort and Inspection: able to speak in complete sentences Auscultation: wheezes and diminished lung sounds Cardio regular rate GI normal to inspection, nondistended, normoactive bowel sounds Auscultation: normoactive bowel sounds Back/Spine no CVA tenderness Extremity General Extremity: normal exam except as noted Skin no rashes or lesions noted Neuro oriented x3 Psych Appearance: appropriate Attitude: calm Charges/Coding Palliative Care Palliative Care: 69663 Follow up 35-49 min Consulation Summary Current admission Current Code Status: Full Code Associated Diagnosis: COPD exacerbation Consult Data Date of Consult: 12/27/24 Location of consult: [facility]U Reason for referral: goals of care and code status Referral source: Sienna Schafer Palliative care diagnosis (Summary list): COPD exacerbation Palliative care services/treatment (Accepted, as consult): accepted Case discussed with referring provider: increasing Ativan to PRN q day for breakthrough anxiety Palliative Assessment Advanced Directive - Current Admission Advance Directive: Advance Directive ON ADMISSION - REFERENCE 3 Do you have a Healthcare No 12/26/24 21:29 Living Will? Do you have a Healthcare Power No 12/26/24 21:29 of Vamp Throater? Do You Want Additional Declined 12/26/24 21:29 Information on Advanced Directives or Healthcare Proxy/DPOA comments: no formal DPOA states her grandson, Tim, would be her NOK that could be her POA for medical Symptoms Dyspnea symptoms: Moderate Constipation symptoms: None Nausea symptoms: None (none this morning ) Vomiting symptoms: None Depression symptoms: Moderate Anorexia symptoms: None (pt is NPO this morning for procedure ) Cough symptoms: Mild Insomnia symptoms: None Diarrhea symptoms: None Fatigue symptoms: Moderate Weakness symptoms: Moderate Confusion symptoms: None Impression & Recommendations Impressions Impressions: When patient is calm, I did note that the patient has improvement in her breathing. Recommentation Palliative recommendations: I do recommend that the patient receives outpatient palliative. Encouter Achieved as a result of this Palliative Care Encounter: [[id number] ] minutes were spent in total for this visit which consisted, primarily of counseling and education dealing with the complex and emotionally intense issues of symptom management and palliative care in the setting of serious and potentially life-threatening illness. Review of documentation, labs and radiological studies. ?Patient/family had the opportunity to ask questions Plan (1) Acute respiratory insufficiency: PLAN: Medical management per primary team (2) COPD with acute exacerbation: PLAN: Medical management per primary team (3) Acute anemia: PLAN: Medical management per primary team Patient is scheduled for scope today (4) Anxiety: PLAN: Recommend increasing Ativan to 1 dose as needed per day in addition to thepatient's scheduled Ativan at night Taught deep breathing exercises and relaxation techniques. Teach back appropriate (5) Palliative care encounter: PLAN: Patient is agreeable to outpatient palliative care services. 12/28/24 0941 <Electronically signed by Stacy WATTS> Cosigner Signature (if applicable): CC: ~ Signed [facility] Work Phone: [phone] 241-962909-04-2025 Consult note [facility] Medical Records Department [address] [place] [id number] Pre-Anesthesia Evaluation 12/28/24 1121 MR#: [id number] Acct: [id number] Name: DENIA GONZALEZ Rep #:[id number] : 1955 69 From: Lawson Henry MD PCP: Dr. Yoseph Fall MD Status:AD M IN Y Race: C Location: [place] [address] 2-1 ASA Classification* ASA Classification ASA Classification: 3 Assessment & Plan Anesthesia* Anesthesia Assessment Anesthesia Assessment: Discussed sedation and/or anesthesia options, risks, benefits, and alternatives with patient/parents/legal guardian/POA. Questions invited. The patient/parents/legal guardian/POA seems to understand and agrees to proceedwith anesthesia plan. Reviewed the physical assessment, medical history, allergy history and patient home medications list prior to surgery/procedure/anesthetic and documented any changes. Performed airway and anesthesia risk assessments. Anesthesia Type Anesthesia Type: MAC History Source History Obtained from:: Patient and Chart Anesthesia Focused Assessment* Temperature: 98.6 F Pulse Rate: 94 Blood Pressure: 136/78 Respiratory Rate: 16 Pulse Ox: 95 Oxygen Delivery Method: Nasal Cannula Oxygen Flow Rate (L/min): 3 Fraction of Inspired Oxygen (FIO2): 30 Airway Assessment Mouth opens: >3 cm Mallampati Score: IV Teeth Condition: Missing (Missing several teeth. Not the teeth you have they are all tight the restare tight. You have an) Neck Range of motion (ROM): Limited ROM (Severe Restriction) Labs Anesthesia Preop lab: CBC WBC 10.6 K/mm3 (4.4-11.0) 12/28/24 04:39 12/28/24 RBC 3.14 M/mm3 (4.2-5.4) L 12/28/24 04:39 12/28/24 Hgb 8.5 g/dL (12.0-15.0) L 12/28/24 04:39 12/28/24 Hct 26.4 % (37-47) L 12/28/24 04:39 12/28/24 Plt Count 203 K/mm3 (150-450) 12/28/24 04:39 12/28/24 CHEMISTRY Potassium 4.6 mmol/L (3.3-5.1) 12/28/24 04:39 12/28/24 Sodium 139 mmol/L (133-145) 12/28/24 04:39 12/28/24 Magnesium 1.9 mg/dL (1.5-2.2) 12/26/24 17:57 12/26/24 Phosphorus 2.4 mg/dL (2.5-4.9) L 07/20/23 06:35 07/20/23 BUN 23 mg/dL (4-19) H 12/28/24 04:39 12/28/24 Creatinine 0.59 mg/dL (0.70-1.20) L 12/28/24 04:39 Glucose 132 mg/dL (70-99) H 12/28/24 04:39 12/28/24 TSH 0.281 uIU/mL (0.300-4.200) L 10/02/24 09:31 COAG Pre-Assessment Diagnosis/Proposed Procedure Planned Operative Procedure(s): Esophagogastroduodenoscopy Anesthesia History 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 When Was Last Pacemaker Check QUESTION #4 FULL TEXT: You/Your Family Experience fever (hyperthermia) with Anesthesia Last Oral Intake Last Oral intake: Last Oral Intake NPO since Meds taken in AM with sips of No 12/28/24 09:46 water? Meds patient instructed to take am of surgery Any additional information?: Yes NPO since: 00:00 Meds taken in AM with sips of water?: No PONV PONV - diamond grader: PONV - diamond grader Female HX of Motion Sickness HX of N/V After Surgery Non-Smoker Duration of Surgery greater than 60 minutes Number of Risk Factors PONV Score Height & Weight Height & Weight: Anesthesia: Height & Weight Height 5 ft 4 in 12/28/24 09:46 Weight: 74.8 kg 12/28/24 09:46 Body Mass Index (BMI) 28.3 12/28/24 09:46 Respiratory Assessment Respiratory Assessment - diamond grader: Respiratory Tract Infection Hx - diamond grader Hx Respiratory Tract Infection No 12/27/24 20:12 STOP Sleep Apnea STOP Sleep Apnea - diamond grader: STOP Sleep Apnea - diamond grader Hx Hypertension Yes 12/26/24 21:29 Hx Sleep Apnea No 12/26/24 21:29 CPAP No 12/26/24 21:29 BIPAP No 12/26/24 21:29 Do you snore loudly (louder No 12/26/24 21:29 than talking or can be heard Do you often feel tired/ Yes 12/26/24 21:29 fatigued/ sleepy during daytime? Has anyone observed you stop No 12/26/24 21:29 breathing during sleep? STOP Results Positive 12/26/24 21:29 QUESTION #5 FULL TEXT : Do you snore loudly (louder than talking or can be heard through closeddoors)? 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 Specify any problems Hx of Preganancy in last 3 No 12/26/24 21:29 Months Nurse Filling Out Transfusion [employer] 12/26/24 21:29 & Questions: Date: 12/26/24 12/26/24 21:29 Time: 21:30 12/26/24 21:29 Patient unable to answer at this time (ie. confused, unrespo /Reproduction History /Reproductive History - diamond grader: /Reproductive Hx- diamond grader Hx Now No 12/27/24 20:12 Gestational Age (in weeks): EDC: Hx Hx Para Hx Section SAB No 12/27/24 20:12 Active Medications Active Medications: Current Medications Generic Name Dose Route Start Last Admin Trade Name Freq PRN Reason Stop Dose Admin Acetaminophen 650 mg 12/26/24 21:09 Acetaminophen 325 Mg Tablet PO Q4H PRN PRN Fever, pain 1-10/10 Hydrocodone Bitart/Acetaminophen 1 tablet 12/26/24 21:09 12/27/24 21:40 Hydrocodone Bitartrate/Apap 5/325 Tablet PO 1 tablet BID PRN PRN Administration pain 1-10 Al Hydroxide/Mg Hydroxide 30 ml 12/26/24 21:09 Mag Hydrox/Al Hydrox/Simeth 30 Ml Udc PO Q6H PRN PRN Gastric Burning Albuterol Sulfate 2.5 mg 12/26/24 21:09 12/27/24 12:45 Albuterol 2.5 Mg/3 Ml Vial.Neb. INHALATION 2.5 mg Q2H PRN PRN Administration Dyspnea, wheezing Albuterol/Ipratropium 3 ml 12/26/24 22:00 12/28/24 07:25 Ipratropium/Albuterol Sulfate 3 Ml Ampul.Neb INHALATION 3 ml Q4HWA.RT HINA Administration Buspirone HCl 10 mg 12/26/24 22:00 12/27/24 21:41 Buspirone 5 Mg Tablet PO 10 mg BID HINA Administration Carvedilol 6.25 mg 12/27/24 08:00 12/27/24 18:03 Carvedilol 6.25 Mg Tablet PO 6.25 mg BIDCM HINA Administration Protocol Cefdinir 300 mg 12/26/24 22:00 12/27/24 21:43 Cefdinir 300 Mg Capsule PO 12/31/24 10:01 300 mg Q12 HINA Administration Dronedarone 400 mg 12/26/24 22:00 12/27/24 21:42 Dronedarone Hydrochloride 400 Mg Tablet PO 400 mg BID HINA Administration Fluticasone Propionate 1 spray 12/27/24 10:00 12/27/24 10:21 Fluticasone 0.05% 1 [place] Nasal.Sry NASAL 1 spray DAILY HINA Administration Guaifenesin 10 ml 12/26/24 21:09 12/27/24 18:06 Guaifenesin 10 Ml Udc (200mg/10ml) PO 10 ml Q4H PRN PRN Administration COUGH/CONGESTION Hydralazine HCl 10 mg 12/26/24 21:09 Hydralazine 20 Mg/Ml Vial IV Q4H PRN PRN SBP > 160 Protocol Sodium Chloride 250 mls @ 15 mls/hr 12/26/24 21:24 IV .[id number] PRN Saline Flush Sodium Chloride 250 mls @ 15 mls/hr 12/26/24 21:24 IV .[id number] PRN Additional IVPB Infusion Pantoprazole Sodium 40 mg/ 100 mls @ 300 mls/hr 12/27/24 22:00 12/27/24 22:05 Sodium Chloride IV Infused Q12 HINA Infusion Lactated Ringer's 1,000 mls @ 15 mls/hr 12/28/24 10:45 12/28/24 10:52 IV 15 mls/hr .Q48H HINA Administration Lorazepam 0.5 mg 12/26/24 22:00 12/27/24 21:40 Lorazepam 0.5 Mg Tablet PO 0.5 mg QHS HINA Administration Melatonin 3 mg 12/26/24 21:09 Melatonin 3 Mg Tablet PO QHS PRN PRN INSOMNIA Methylprednisolone Sodium Succinate 40 mg 12/27/24 06:00 12/28/24 06:29 Methylprednisolone Sod Succ 40 Mg/Ml Vial IV 40 mg Q8 HINA Administration Montelukast Sodium 10 mg 12/27/24 10:00 12/27/24 10:20 Montelukast 10 Mg Tablet PO 10 mg DAILY HINA Administration Nicotine 7 mg 12/27/24 15:00 12/27/24 15:25 Nicotine (Pbkc) 7 Mg Patch TD 7 mg DAILY HINA Administration Ondansetron HCl 4 mg 12/26/24 21:09 Ondansetron 4 Mg/2 Ml Vial IV Q8H PRN PRN NAUSEA/VOMITING Pramipexole Dihydrochloride 0.125 mg 12/26/24 22:00 12/27/24 21:42 Pramipexole Di-Hcl 0.125 Mg Tablet PO 0.125 mg QHS HINA Administration Senna/Docusate Sodium 2 tablet 12/26/24 21:09 Senna/Docusate Sodium 1 Tablet PO BID PRN PRN Constipation Sertraline HCl 100 mg 12/26/24 22:00 12/27/24 21:43 Sertraline 100 Mg Tablet PO 100 mg BID HINA Administration Sodium Chloride 10 - 40 ml 12/26/24 21:24 12/28/24 06:29 0.9% Saline Lock 10 Ml Syringe IV 10 ml UD PRN Administration SALINE FLUSH Verapamil HCl 180 mg 12/26/24 22:00 12/27/24 21:41 Verapamil Sr 180 Mg Capsule PO 180 mg BID HINA Administration Protocol [facility] Medical History Afib Aortic valve stenosis RLS [...] bp #60 tabs 0 11/03/24 Unknown Rx furosemide 20 mg tablet 20 mg PO DAILY fluid overloa d 12/27/24 Unknown History simethicone 250 mg capsule (Gas-X) 250 mg PO BID gas 0 12/27/24 Unknown History Allergy/AdvReac Type Severity Reaction Status Date / Time No Known Allergies Allergy Verified 12/26/24 13:56 Family History Mother Hypertension Throat cancer Father Hypertension Stomach cancer Surgical History H/O exploratory laparotomy History of lung surgery History of cholecystectomy Social History household members: significant other and none housing: apartment Smoking Status: Former smoker alcohol intake: former substance use type: does not use Homelessness:: Sheltered Review of Systems (Anesthesia) ROS Narrative System reviewed and no additional complaints, except as documented. 12/28/24 1125 shefali OWEN> Date _ Lawson Henry MD Cosigner Signature: Date CC: ~ Signed [facility]09-04-2025 Consult note [facility] Medical Records Department [address] [place] [address] Consultation - GI 12/28/24 1116 MR#: [id number] Acct: [id number] Name: DENIA GONZALEZ Rep #:[id number] : 1955 69 From: Kyle Mendenhall DO PCP: Dr. Yoseph Fall MD Status:AD M IN Location: [place] [address] HPI Consult Data Date of Consult: 12/28/24 HPI Narrative Reason for Consultation: Anemia HPI Narrative: DENIA GONZALEZ, is a 69-year-old female presented to the ER with 3 to 4 days of productive cough withsmall amount of yellow sputum. She also admitted to increased dyspnea and chest tightness that wraps around to her back. She does suffer from severe COPD and anxiety. She also has a history of atrial fibrillation on Eliquis. I was asked to see her due to decreasing hemoglobin. [facility] Medical History Afib Aortic valve stenosis RLS [...] bp #60 tabs 0 11/03/24 Unknown Rx furosemide 20 mg tablet 20 mg PO DAILY fluid overloa d 12/27/24 Unknown History simethicone 250 mg capsule (Gas-X) 250 mg PO BID gas 0 12/27/24 Unknown History Allergy/AdvReac Type Severity Reaction Status Date / Time No Known Allergies Allergy Verified 12/26/24 13:56 Family History Mother Hypertension Throat cancer Father Hypertension Stomach cancer Surgical History H/O exploratory laparotomy History of lung surgery History of cholecystectomy Social History household members: significant other and none housing: apartment Smoking Status: Former smoker alcohol intake: former substance use type: does not use Homelessness:: Sheltered Physical Exam Const alert, oriented x3, no apparent distress and healthy appearing General Appearance: cooperative GI normal to inspection, nondistended, normoactive bowel sounds, soft to palpation,non-tender and non-distended Percussion: normal to percussion Rectal Exam: deferred Lab / Micro Data 12/28/24 04:39 12/28/24 04:39 Labs: Laboratory Results - last 24 hr 12/27/24 05:50: Iron 17 L, TIBC 305, Iron Saturation 6.0 L, Unsaturated IBC 288,Ferritin 35 12/28/24 04:39: WBC 10.6, RBC 3.14 L, Hgb 8.5 L, Hct 26.4 L, MCV 84.1, MCH 27.1,MCHC 32.2, RDW Std Deviation 42.5, RDW Coeff of Augustin 13.8, Plt Count 203, MPV 9.4, Immature Gran % (Auto) 0.800, Neut % (Auto) 90.6 H, Lymph % (Auto) 5.5 L, Mineral % (Auto) 3.0, Eos % (Auto) 0.0, Baso % (Auto) 0.1, Absolute Neuts (auto) 9.6 H, Absolute Lymphs (auto) 0.58 L, Nucleated RBC % 0, Sodium 139, Potassium 4.6, Chloride 93 L, Carbon Dioxide 37.2 H, Anion Gap 9, BUN 23 H, Creatinine 0.59 L, Estim Creat Clear Calc 64.18, Est GFR (MDRD) Non-Af 97, BUN/Creatinine Ratio 39.3 H, Glucose 132 H, Calcium 9.1 Micro: Microbiology 12/26/24 21:26 Sputum, Expectorated/Coughed Gram Stain - Final 12/26/24 21:26 Sputum, Expectorated/Coughed Respiratory Culture - Final Rhythm Strip Rhythm Strip: Sinus Rhythm Rate: 99 Ectopy: None Assessment & Plan Assessment/Plan (1) Acute anemia: PLAN: She should undergo an upper endoscopy. This is particularly important dueto the fact that sheneeds to stay on anticoagulation for atrial fibrillation. She was explained alternatives, risk and benefits clued understanding bleeding, infection, septal, perforation, need for change and . She will have an ASAof 3. Charges/Coding Visit Charges Inpatient E&M: 93093 Init Hosp L3 12/28/24 1119 Cosigner Signature (if applicable): CC: Dr. Yoseph Fall MD~ Signed [facility]09-04-2025 Progress note [facility] Medical Records Department [address] [place] [address] Progress Note - Palliative 12/28/24914 MR#: [id number] Acct: [id number] Name: DENIA GONZALEZ Rep #:[id number] : 1955 69 From: Stacy Nazario MAILER APPRENTICE-C PCP: Dr. Yoseph Fall MD Status:AD M IN Location: [facility] [id number] Subjective Subjective 12/28/24: Prior to meeting with the patient at bedside I reviewed documentation and labs from overnight. I then met with the patient, Ting at bedside. She was sleeping upon entering my room and I did notice that while she was relaxed she breathes much easier. I did listen to her lungs while she was laying on herleft side in which her lung sounds are diminished bilaterally with some fine crackles. Patient was then gently awakened by myself and STORE ASSISTANT to do her vitals. Patient states that she feelsthat she is breathing much easier today. We did have an extensive discussion about relaxation and how it affects her breathing. I did teach her deep breathing exercises and guided imagery to help herduring times of extreme anxiety. She does state that her granddaughter is a source of calming for her and that she will concentrate on her during these times. She was able to repeat demonstration deep breathing exercises. We also discussed her sleep overnight which she states that she did sleep very well. She does receive Ativan 0.5 mg p.o. nightly which she states that she feels is helping her. I do recommend the possibility of increasing her Ativan to twice daily to assist with keeping her more calm during hospitalization. Patient would most likely benefit from a daily as needed of Ativan for panic attacks. I did note that patient's potassium has normalized today at 4.6 from 3.0 yesterday. Her BUN is slightly elevated at 23 from 18 yesterday creatinine is 0.59. Hemoglobinand hematocrit h ave remained stable from yesterday. Patient states that she continues to be interested in palliative care on outpatient basis. Case management updated. All questions answered. 12/27/24: Prior to meeting with the patient at bedside I reviewed documentation, labs, and radiological studies also documentation from previous visits in September. I then met with the patient, Ting at bedside. She was sitting on the edge ofthe bed. Audible coarse crackles noted with cough. I introduced myself and theconcept of palliative care which she voluntarily excepted our services. Dianehstates that she received outpatient palliative care services previously but was told that they could nothelp her because she was requiring pain management. Atthis time, I do feel that the patient would benefit from palliative care from anoutpatient standpoint as she does have severe anxiety which is keeping her from having any quality of life and keeps her in her home as well as shortness of breath. Patient states that the majority of her anxiety can be attributed to her fear of running out of oxygen. She states that she only has a small tank for when she goes out of the home and that she is fearful that she will run out of oxygen. She does not have a condenser at home and only has 1 tank at home. I do feel that the patient would benefit from a condenser to help relieve her anxiety for running out of oxygen. She does state that her primary care provider has significantly reduced her pain medications at home in which she previously was receiving 120 tablets/month and that she is now down to 60. Her primary care provider did take her off of her Xanax and now has her on Zoloft twice a day and BuSpar 4 times per day. She does not feel that this combinationis working for her. Patient did become extremely anxious while talking about her medications and her breathing. It was recommended that she utilize BiPAP while in the hospital and she initially stated that she did not want to use it.She did utilize it overnight and states that it did help her. She is open to utilizing BiPAP at home. Patient states that her quality of life at home has significant significantly decreased recently.She states that she loves to fishand would like to spend time with her family at events but she is too fearful toleave her house for fear of running out of oxygen. Patient does have a significant other, Mike, who was able to help her at home she also has a neighbor who comes down to help her as well. I do feel that Ting would benefit from outpatient palliative care services in which she is open to, for anxiety and shortness of breath. She does understand that palliative care will not be able to assist her with pain management and that would be provided by herprimary care provider. Patientdid endorse being a full code and states understanding of the benefits versus burdens of CPR and intubation. I also discussed the possibility of hospice in which she then also became anxious and stated that she was not ready to talk about that quite yet. All questions were answered. Palliative carewill continue to follow for goals of care conversations as clinical picture evolves. HPI:The patient is a 69 y/o F w/ PMHx: Valvular Heart Disease, GERD, RLS, Anxiety and Depression, Former tobacco use, Former EtOH Abuse, Hx Non-small celllung cancer status post right lung lobectomyremotely 2003, COPD/Asthma with Chronic Hypoxic Respiratory Failure (2L NC) with allergic rhinitis,HTN who presents to the [facility] ED on 12/26/2024 with history of 3 to 4days of progressively worsening fatigue, malaise, dyspnea with chest tightness and wheezing coupled unfortunately with significant panic attacks whenever she has been attempting to leave the house with a productive cough specifically of yellow sputum prompting ED evaluation be cautious. She does report that she is supposed to have a heart cath at [facility] in the next several weeks because of valvular heart disease for evaluation. Patient reports that her stools she believes have been normal in appearance. He does describe ongoing constant tightness with her dyspnea in the chest but no specific stabbing painor significant pressure or pleuritic discomfort. Workup in [...] BUN/creatinine 16/0.64, GFR 96, glucose 112, initial [id number] with repeat delta 25, chest x-ray with surgical clips overlying the upper mediastinum and right paratracheal region with some local volume loss and linearscarring as well as COPD type changes with no acute cardiopulmonary f indings, EKG with SR with nonspecific changes with no acute evidence of ischemia. In the ED patientministered albuterol treatment x 3 and DuoNeb therapy x 1 in additionto Xanax 0.25 mg p.o. x 1, doxycycline 100 mg p.o. x 1 and Solu- Medrol 125 mg IVx 1. Objective Data Objective Data Vital Signs: Vital Signs Temp Pulse Resp BP Pulse Ox O2 Del Method O2 Flow Rate 97.7 F L 99 18 137/68 H 95 Nasal Cannula 3 12/28/24 06:35 12/28/24 06:35 12/28/24 06:35 12/28/24 06:35 12/28/24 06:35 12/28/24 06:35 12/28/24 06:35 FiO2 30 12/28/24 03:37 Oxygen Flow Rate (L/min) 3 Oxygen Delivery Method Nasal Cannula Weight: 164 lb 14.492 oz Body Mass Index (BMI) 28.3 Intake & Output: Intake and Output for Last 24 Hours 12/26/24 12/27/24 12/28/24 23:59 23:59 23:59 Intake Total 120 / 120 1300 / 1300 Output Total 400 / 400 Balance 120 / 120 900 / 900 Lab / Micro Data Attestation: I reviewed the patient's lab results. Lab results narrative: Patient's potassium has normalized. Hemoglobin and hematocrit remained stable from yesterday. Slightly elevated BUN from yesterday 23 12/28/24 04:39 12/28/24 04:39 Labs: Laboratory Results - last 24 hr 12/27/24 05:50: Iron 17 L, TIBC 305, Iron Saturation 6.0 L, Unsaturated IBC 288,Ferritin 35 12/28/24 04:39: WBC 10.6, RBC 3.14 L, Hgb 8.5 L, Hct 26.4 L, MCV 84.1, MCH 27.1,MCHC 32.2, RDW Std Deviation 42.5, RDW Coeff of Augustin 13.8, Plt Count 203, MPV 9.4, Immature Gran % (Auto) 0.800, Neut % (Auto) 90.6 H, Lymph % (Auto) 5.5 L, Mineral % (Auto) 3.0, Eos % (Auto) 0.0, Baso % (Auto) 0.1, Absolute Neuts (auto) 9.6 H, Absolute Lymphs (auto) 0.58 L, Nucleated RBC % 0, Sodium 139, Potassium 4.6, Chloride 93 L, Carbon Dioxide 37.2 H, Anion Gap 9, BUN 23 H, Creatinine 0.59 L, Estim Creat Clear Calc 64.18, Est GFR (MDRD) Non-Af 97, BUN/Creatinine Ratio 39.3 H, Glucose 132 H, Calcium 9.1 Micro: Microbiology 12/26/24 21:26 Sputum, Expectorated/Coughed Gram Stain - Final 12/26/24 21:26 Sputum, Expectorated/Coughed Respiratory Culture - Final 12/26/24 20:48 Mucosa - Nasopharyngeal Respiratory Panel (PCR) - Final Rhythm Strip Rhythm Strip: Sinus Rhythm Rate: 99 Ectopy: None Social Homelessness:: Sheltered Physical Exam Const alert and oriented x3 General Appearance: cooperative Orientation / Consciousness: oriented to person, oriented to place and oriented to time Exam Limitations: no limitations HEENT normocephalic Eyes Eyes Narrative: Wears corrective lenses Neck full ROM Resp normal respiratory effort Effort and Inspection: able to speak in complete sentences Auscultation: wheezes and diminished lung sounds Cardio regular rate GI normal to inspection, nondistended, normoactive bowel sounds Auscultation: normoactive bowel sounds Back/Spine no CVA tenderness Extremity General Extremity: normal exam except as noted Skin no rashes or lesions noted Neuro oriented x3 Psych Appearance: appropriate Attitude: calm Charges/Coding Palliative Care Palliative Care: 08920 Follow up 35-49 min Consulation Summary Current admission Current Code Status: Full Code Associated Diagnosis: COPD exacerbation Consult Data Date of Consult: 12/27/24 Location of consult: PCU Reason for referral: goals of care and code status Referral source: Sienna Schafer Palliative care diagnosis (Summary list): COPD exacerbation Palliative care services/treatment (Accepted, as consult): accepted Case discussed with referring provider: increasing Ativan to PRN q day for breakthrough anxiety Palliative Assessment Advanced Directive - Current Admission Advance Directive: Advance Directive ON ADMISSION - REFERENCE 3 Do you have a Healthcare No 12/26/24 21:29 Living Will? Do you have a Healthcare Power No 12/26/24 21:29 of Vamp Throater? Do You Want Additional Declined 12/26/24 21:29 Information on Advanced Directives or Healthcare Proxy/DPOA comments: no formal DPOA states her grandson, Tim, would be her NOK that could be her POA for medical Symptoms Dyspnea symptoms: Moderate Constipation symptoms: None Nausea symptoms: None (none this morning ) Vomiting symptoms: None Depression symptoms: Moderate Anorexia symptoms: None (pt is NPO this morning for procedure ) Cough symptoms: Mild Insomnia symptoms: None Diarrhea symptoms: None Fatigue symptoms: Moderate Weakness symptoms: Moderate Confusion symptoms: None Impression & Recommendations Impressions Impressions: When patient is calm, I did note that the patient has improvement in her breathing. Recommentation Palliative recommendations: I do recommend that the patient receives outpatient palliative. Encouter Achieved as a result of this Palliative Care Encounter: [[id number] ] minutes were spent in total for this visit which consisted, primarily of counseling and education dealing with the complex and emotionally intense issues of symptom management and palliative care in the setting of serious and potentially life-threatening illness. Review of documentation, labs and radiological studies. ?Patient/family had the opportunity to ask questions Plan (1) Acute respiratory insufficiency: PLAN: Medical management per primary team (2) COPD with acute exacerbation: PLAN: Medical management per primary team (3) Acute anemia: PLAN: Medical management per primary team Patient is scheduled for scope today (4) Anxiety: PLAN: Recommend increasing Ativan to 1 dose as needed per day in addition to thepatient's scheduledAtivan at night Taught deep breathing exercises and relaxation techniques. Teach back appropriate (5) Palliative care encounter: PLAN: Patient is agreeable to outpatient palliative care services. 12/28/24 0941 Cosigner Signature (if applicable): CC: ~ Signed [facility]09-03-2025 Progress note Author Lynne [facility] Note Date/Time December 27, 2024 6:[facility] Medical Records Department [address] [place] [address] Progress Note 12/27/24 1546 MR#: [id number] Acct: [id number] Name: DENIA GONZALEZ Rep #:[id number] : 1955 69 From: Lynne Schafer MD PCP: Dr. Yoseph Fall MD Status:AD M IN Location: [place] [address] Subjective Subjective Patient seen and examined. She had no active complaints. She is being managed for acute COPD exacerbation. SHe admits to a dry cough, but denies any chest pain, palpitations, dizziness, nausea, vomiting or any other symptoms. Review ofsystems is otherwise negative. She is on 3L of oxygen, which is her baseline. Objective Data Objective Data Vital Signs: Vital Signs Temp Pulse Resp BP Pulse Ox O2 Del Method O2 Flow Rate 98.7 F 92 17 120/65 98 Nasal Cannula 3 12/27/24 15:27 12/27/24 15:27 12/27/24 15:27 12/27/24 15:27 12/27/24 15:27 12/27/24 15:27 12/27/24 15:27 Oxygen Flow Rate (L/min) 3 Oxygen Delivery Method Nasal Cannula Weight: 156 lb 11.979 oz Body Mass Index (BMI) 26.7 Intake & Output: Intake and Output for Last 24 Hours 12/25/24 12/26/24 12/27/24 23:59 23:59 23:59 Intake Total 120 / 120 500 / 500 Output Total 400 / 400 Balance 120 / 120 100 / 100 Lab / Micro Data 12/27/24 05:50 12/27/24 05:50 Labs: Laboratory Results - last 24 hr 12/26/24 16:20: WBC 9.6, RBC 3.43 L, Hgb 9.2 L, Hct 29.0 L, MCV 84.5, MCH 26.8 L, MCHC 31.7 L, RDW Std Deviation 43.0, RDW Coeff of Augustin 14.0, Plt Count 219, MPV9.3, Immature Gran % (Auto) 0.800, Neut % (Auto) 83.2 H, Lymph % (Auto) 11.3 L, Mineral % (Auto) 4.5, Eos % (Auto) 0.1, [...] High Sens 25 H D 12/26/24 17:57: Magnesium 1.9, Iron 25 L, TIBC 313, Iron Saturation 8.0 L, Unsaturated IBC 288, Ferritin 22, Troponin T Hi Sens 2 Hr 25 H 12/26/24 20:36: Troponin T Hi Sens 4Hr 26 H, Procalcitonin 0.04 12/26/24 22:13: Hgb 8.5 L, Hct 26.5 L 12/27/24 02:08: Hgb 9.3 L, Hct 29.0 L 12/27/24 05:50: WBC 5.4, RBC 3.14 L, Hgb 8.5 L, Hct 26.3 L, MCV 83.8, MCH 27.1, MCHC 32.3, RDW Std Deviation 42.8, RDW Coeff of Augustin 14.2, Plt Count 188, MPV 10.0, Immature Gran % (Auto) 1.300 H, Neut % (Auto) 88.7 H, Lymph % (Auto) 8.1 L, Mineral % (Auto) 1.7, Eos % (Auto) 0.0, Baso % (Auto) 0.2, Absolute Neuts (auto) 4.8, Absolute Lymphs (auto) 0.44 L, Nucleated RBC % 0, Sodium 140, Potassium 3.0L, Chloride 92 L, Carbon Dioxide 39.4 H, Anion Gap 9, BUN 18, Creatinine 0.61 L,Estim Creat Clear Calc 64.18, Est GFR (MDRD) Non-Af 97, BUN/Creatinine Ratio 29.6 H, Glucose 151 H, Calcium 8.9, Iron 17 L, TIBC 305, Iron Saturation 6.0 L, Unsaturated IBC 288, Ferritin 35, Total Bilirubin 0.31, AST 20, ALT 20, AlkalinePhosphatase 46, Total Protein 5.9, Albumin 3.8, Globulin 2.1 L, Albumin/GlobulinRatio 1.8 Micro: Microbiology 12/26/24 21:26 Sputum, Expectorated/Coughed Gram Stain - Final 12/26/24 21:26 Sputum, Expectorated/Coughed Respiratory Culture - Final 12/26/24 20:48 Mucosa - Nasopharyngeal Respiratory Panel (PCR) - Final ABG Data ABG results: ABG 12/26/24 20:41 Specimen Type ART Sample Site L Radial pH 7.44 Bicarbonate Actual 55.5 H Total CO2 > 50 Base Excess > 30 H O2 Saturation 98 O2 % 2.0 ABG pCO2 81.2 H* ABG pO2 106 H Chao Test Positive O2 Delivery Device Cannula Vent Mode Not entered Crit Call To/Read Back Yes Blood Gas Notified Whom White Blood Gas Notified Time 20:42:58 Rhythm Strip Rhythm Strip: Sinus Rhythm Rate: 99 Ectopy: None Social Homelessness:: Sheltered Physical Exam Const alert, oriented x3 and no apparent distress General Appearance: cooperative HEENT normocephalic, head/scalp atraumatic, moist oral mucous membranes and oropharynxnormal Eyes EOMs intact bilaterally Neck supple and no JVD Lymph Lymphatic: no lymphedema noted Resp Resp Narrative: mildly diminished breath sounds bibasally, no wheezes or crackles. On 3L of oxygen by nasal canula Cardio regular rate, regular rhythm, S1 normal heart sound, S2 normal heart sound and no murmurs GI normal to inspection, nondistended, normoactive bowel sounds, soft to palpation and non-tender Extremity normal capillary refill, no clubbing, cyanosis or edema and no calf tenderness General Extremity: no tenderness to palpation of joints or extremities Skin General Skin Exam: no breakdown Neuro CN's II-XII intact bilaterally and no focal motor deficits Motor Exam: general weakness Psych thought process normal and cooperative Appearance: appropriate Assessment & Plan Assessment/Plan (1) Acute respiratory insufficiency: (2) COPD with acute exacerbation: PLAN: Plan #Acute COPD exacerbation in the setting of chronic respiratory failure * On 3 L of oxygen which is her baseline. On breathing treatments bronchodilators. On IV Solu-Medrol. * Titrate oxygen as needed to be to saturation above 90%. Respiratory panel was negative. Currently on cefdinir. #Acute anemia: * Was started on Eliquis during most recent admission for A-fib. No globin is down to around 8. Stool for occult blood pending. * Iron panel showed evidence of iron deficiency anemia. Will consult gastroenterology. * I continue holding Eliquis * #Hypokalemia: Potassium is 3. Replace and trend.\ # History of non-small cell lung cancer: S/p right lung lobectomy. In remission. #Severe aortic valve stenosis: * 2D echo from 11/03/2024 showed severe concentric left ventricular hypertrophy with EF of 70% and stage I diastolic dysfunction. * To follow-up at [facility] as scheduled for evaluation for TAVR. * On Multaq, Coreg and verapamil. * #Hypertension: On Coreg and verapamil. IV hydralazine as needed #History of paroxysmal A-fib: On Coreg and Multaq. Eliquis held in light of anemia. #GERD: On PPI DVT prophylaxis: SCDs Charges/Coding Visit Charges Inpatient E&M: 48072 Subs Hosp L2 12/27/24 7712 <Electronically signed by Lynne Schafer MD> Lynne Schafer MD Cosigner Signature (if applicable): CC: ~ Signed [facility] Work Phone: [phone]) 335-779609-03-2025 Progress note [facility] Medical Records Department [address] [place] [address] Progress Note 12/27/24 1546 MR#: [id number] Acct: [id number] Name: DENIA GONZALEZ Rep #:[id number] : 1955 69 From: Lynne Schafer MD PCP: Dr. Yoseph Fall MD Status:AD M IN Location: [place] [address] Subjective Subjective Patient seen and examined. She had no active complaints. She is being managed for acute COPD exacerbation. SHe admits to a dry cough, but denies any chest pain, palpitations, dizziness, nausea, vomiting or any other symptoms. Review ofsystems is otherwise negative. She is on 3L of oxygen, which is her baseline. Objective Data Objective Data Vital Signs: Vital Signs Temp Pulse Resp BP Pulse Ox O2 Del Method O2 Flow Rate 98.7 F 92 17 120/65 98 Nasal Cannula 3 12/27/24 15:27 12/27/24 15:27 12/27/24 15:27 12/27/24 15:27 12/27/24 15:27 12/27/24 15:27 12/27/24 15:27 Oxygen Flow Rate (L/min) 3 Oxygen Delivery Method Nasal Cannula Weight: 156 lb 11.979 oz Body Mass Index (BMI) 26.7 Intake & Output: Intake and Output for Last 24 Hours 12/25/24 12/26/24 12/27/24 23:59 23:59 23:59 Intake Total 120 / 120 500 / 500 Output Total 400 / 400 Balance 120 / 120 100 / 100 Lab / Micro Data 12/27/24 05:50 12/27/24 05:50 Labs: Laboratory Results - last 24 hr 12/26/24 16:20: WBC 9.6, RBC 3.43 L, Hgb 9.2 L, Hct 29.0 L, MCV 84.5, MCH 26.8 L, MCHC 31.7 L, RDW Std Deviation 43.0, RDW Coeff of Augustin 14.0, Plt Count 219, MPV9.3, Immature Gran % (Auto) 0.800, Neut% (Auto) 83.2 H, Lymph % (Auto) 11.3 L, Mineral % (Auto) 4.5, Eos % (Auto) 0.1, Baso % (Auto) 0.1, Absolute Neuts (auto) 8.0 H, Absolute Lymphs (auto) 1.08, Nucleated RBC % 0, Sodium 137, Potassium 4.0,Chloride 88 L, Carbon Dioxide 41.6 H, Anion Gap 8, BUN 16, Creatinine 0.64 L, Estim Creat Clear Calc 65.40, Est GFR (MDRD) Non-Af 96, BUN/Creatinine Ratio 25.1 H, Glucose 112 H, Calcium 8.9, TroponinT High Sens 25 H D 12/26/24 17:57: Magnesium 1.9, Iron 25 L, TIBC 313, Iron Saturation 8.0 L, Unsaturated IBC 288, Ferritin 22, Troponin T Hi Sens 2 Hr 25 H 12/26/24 20:36: Troponin T Hi Sens 4Hr 26 H, Procalcitonin 0.04 12/26/24 22:13: Hgb 8.5 L, Hct 26.5 L 12/27/24 02:08: Hgb 9.3 L, Hct 29.0 L 12/27/24 05:50: WBC 5.4, RBC 3.14 L, Hgb 8.5 L, Hct 26.3 L, MCV 83.8, MCH 27.1, MCHC 32.3, RDW Std Deviation 42.8, RDW Coeff of Augustin 14.2, Plt Count 188, MPV 10.0, Immature Gran % (Auto) 1.300 H, Neut% (Auto) 88.7 H, Lymph % (Auto) 8.1 L, Mineral % (Auto) 1.7, Eos % (Auto) 0.0, Baso % (Auto) 0.2, Absolute Neuts (auto) 4.8, Absolute Lymphs (auto) 0.44 L, Nucleated RBC % 0, Sodium 140, Potassium 3.0L,Chloride 92 L, Carbon Dioxide 39.4 H, Anion Gap 9, BUN 18, Creatinine 0.61 L,Estim Creat Clear Calc64.18, Est GFR (MDRD) Non-Af 97, BUN/Creatinine Ratio 29.6 H, Glucose 151 H, Calcium 8.9, Iron 17 L, TIBC 305, Iron Saturation 6.0 L, Unsaturated IBC 288, Ferritin 35, Total Bilirubin 0.31, AST 20, ALT 20, AlkalinePhosphatase 46, Total Protein 5.9, Albumin 3.8, Globulin 2.1 L, Albumin/GlobulinRatio1.8 Micro: Microbiology 12/26/24 21:26 Sputum, Expectorated/Coughed Gram Stain - Final 12/26/24 21:26 Sputum, Expectorated/Coughed Respiratory Culture - Final 12/26/24 20:48 Mucosa - Nasopharyngeal Respiratory Panel (PCR) - Final ABG Data ABG results: ABG 12/26/24 20:41 Specimen Type ART Sample Site L Radial pH 7.44 Bicarbonate Actual 55.5 H Total CO2 > 50 Base Excess > 30 H O2 Saturation 98 O2 % 2.0 ABG pCO2 81.2 H* ABG pO2 106 H Chao Test Positive O2 Delivery Device Cannula Vent Mode Not entered Crit Call To/Read Back Yes Blood Gas Notified Whom White Blood Gas Notified Time 20:42:58 Rhythm Strip Rhythm Strip: Sinus Rhythm Rate: 99 Ectopy: None Social Homelessness:: Sheltered Physical Exam Const alert, oriented x3 and no apparent distress General Appearance: cooperative HEENT normocephalic, head/scalp atraumatic, moist oral mucous membranes and oropharynxnormal Eyes EOMs intact bilaterally Neck supple and no JVD Lymph Lymphatic: no lymphedema noted Resp Resp Narrative: mildly diminished breath sounds bibasally, no wheezes or crackles. On 3L of oxygen by nasal canula Cardio regular rate, regular rhythm, S1 normal heart sound, S2 normal heart sound and no murmurs GI normal to inspection, nondistended, normoactive bowel sounds, soft to palpation and non-tender Extremity normal capillary refill, no clubbing, cyanosis or edema and no calf tenderness General Extremity: no tenderness to palpation of joints or extremities Skin General Skin Exam: no breakdown Neuro CN's II-XII intact bilaterally and no focal motor deficits Motor Exam: general weakness Psych thought process normal and cooperative Appearance: appropriate Assessment & Plan Assessment/Plan (1) Acute respiratory insufficiency: (2) COPD with acute exacerbation: PLAN: Plan #Acute COPD exacerbation in the setting of chronic respiratory failure * On 3 L of oxygen which is her baseline. On breathing treatments bronchodilators. On IV Solu-Medrol. * Titrate oxygen as needed to be to saturation above 90%. Respiratory panel was negative. Currentlyon cefdinir. #Acute anemia: * Was started on Eliquis during most recent admission for A-fib. No globin is down to around 8. Stool for occult blood pending. * Iron panel showed evidence of iron deficiency anemia. Will consult gastroenterology. * I continue holding Eliquis * #Hypokalemia: Potassium is 3. Replace and trend.\ # History of non-small cell lung cancer: S/p right lung lobectomy. In remission. #Severe aortic valve stenosis: * 2D echo from 11/03/2024 showed severe concentric left ventricular hypertrophy with EF of 70% and stage I diastolic dysfunction. * To follow-up at [facility] as scheduled for evaluation for TAVR. * On Multaq, Coreg and verapamil. * #Hypertension: On Coreg and verapamil. IV hydralazine as needed #History of paroxysmal A-fib: On Coreg and Multaq. Eliquis held in light of anemia. #GERD: On PPI DVT prophylaxis: SCDs Charges/Coding Visit Charges Inpatient E&M: 41871 Subs Hosp L2 12/27/24 1832 Lynne Schafer MD Cosigner Signature (if applicable): CC: ~ Signed [facility]09-03-2025 Consult note Author Stacy abdi [facility] Note Date/Time December 27, 2024 3:21pm [facility] Medical Records Department [address] [place] [address] Consultation - Palliative Care 12/27/24 1408 MR#: [id number] Acct: [id number] Name: DENIA GONZALEZ Rep #:[id number] : 1955 69 From: Stacy WATTS PCP: Dr. Yoseph Fall MD Status:AD M IN Location: [address] Medical History Afib Aortic valve stenosis RLS [...] bp #60 tabs 0 11/03/24 Unknown Rx furosemide 20 mg tablet 20 mg PO DAILY fluid overloa d 12/27/24 Unknown History simethicone 250 mg capsule (Gas-X) 250 mg PO BID gas 0 12/27/24 Unknown History Allergy/AdvReac Type Severity Reaction Status Date / Time No Known Allergies Allergy Verified 12/26/24 13:56 Family History Mother Hypertension Throat cancer Father Hypertension Stomach cancer Surgical History H/O exploratory laparotomy History of lung surgery History of cholecystectomy Social History household members: significant other and none housing: apartment Smoking Status: Former smoker alcohol intake: former substance use type: does not use Homelessness:: Sheltered Prior Cardiac Testing/Procedures Prior Cardiac Testing/Procedures: Echocardiogram (from September showed EF of 70% preeti grade 1 diastolic dysfunction with severe aortic calcification and stenosis.) ROS ROS Narrative Shortness of breath Constitutional Constitutional: Reports fatigue Eyes Eyes: Reports systems reviewed and no addt'l complaints, except as documented ENT HEENT: Reports systems reviewed and no addt'l complaints, except as documented Cardiovascular Cardiovascular: Reports other Details: Chest tightness Respiratory/Chest Respiratory/Chest: Reports change in phlegm color, chest congestion, chest tightness, dyspnea, dyspnea on exertion, portable oxygen @ home, shortness of breath at rest and shortness of breath with exertion Gastrointestinal Gastrointestinal: Reports systems reviewed and no addt'l complaints, except as documented Genitourinary Genitourinary: Reports systems reviewed and no addt'l complaints, except as documented Musculoskeletal Musculoskeletal: Reports systems reviewed and no addt'l complaints, except as documented Integumentary Integumentary: Reports systems reviewed and no addt'l complaints, except as documented Neurologic Neurologic: Reports systems reviewed and no addt'l complaints, except as documented Psychiatric Psychiatric: Reports anxiety and depression Endocrine Endocrinology: Reports systems reviewed and no addt'l complaints, except as documented Hematologic/Lymphatic Hematologic/Lymphatic: Reports systems reviewed and no addt'l complaints, exceptas documented Allergic/Immunologic Allergic/Immunologic: Reports systems reviewed and no addt'l complaints, except as documented Physical Exam Const alert and oriented x3 Constitutional Narrative: Extremely anxious General Appearance: cooperative HEENT normocephalic Mouth: dry mucous membranes Eyes PERRL Resp Effort and Inspection: tachypneic and uses accessory muscles Auscultation: crackles, rhonchi, wheezes and diminished lung sounds Cardio regular rate GI normal to inspection, nondistended, normoactive bowel sounds Skin no rashes or lesions noted Neuro CN's II-XII intact bilaterally Speech: speech normal Psych Psych Narrative: Patient becomes extremely anxious when talking about uncomfortable topics. Mood & Affect: depressed and anxious Charges/Coding Palliative Care Palliative Care: 19187 New Pt Consult 80+ min HPI Current admission Current Code Status: Full Code, patient became extremely anxious when speaking about CODE STATUS. Associated Diagnosis: COPD exacerbation, severe aortic stenosis and calcification, normocytic anemia Consult Data Date of Consult: 12/27/24 Location of consult: PCU Reason for referral: goals of care and code status Referral source: [facility] Palliative care diagnosis (Summary list): COPD exacerbation Palliative care services/treatment (Accepted, as consult): accepted Case discussed with referring provider: Anxiety management. HPI Narrative HPI Narrative: 12/27/24: Prior to meeting with the patient at bedside I reviewed documentation, labs, and radiological studies also documentation from previous visits in September. I then met with the patient, Ting at bedside. She was sitting on the edge ofthe bed. Audible coarse crackles noted with cough. I introduced myself and theconcept of palliative care which she voluntarily excepted our services. Brandeetates that she received outpatient palliative care services previously but was told that they could not help her because she was requiring pain management. Atthis time, I do feel that the patient would benefit from palliative care from anoutpatient standpoint as she does have severe anxiety which is keeping her from having any quality of life and keeps her in her home as well as shortness of breath. Patient states that the majority of her anxiety can be attributed to her fear of running out of oxygen. She states that she only has a small tank for when she goes out of the home and that she is fearful that she will run out of oxygen. She does not have a condenser at home and only has 1 tank at home. I do feel that the patient would benefit from a condenser to help relieve her anxiety for running out of oxygen. She does state that her primary care provider has significantly reduced her pain medications at home in which she previously was receiving 120 tablets/month and that she is now down to 60. Her primary care provider did take her off of her Xanax and now has her on Zoloft twice a day and BuSpar 4 times per day. She does not feel that this combinationis working for her. Patient did become extremely anxious while talking about her medications and her breathing. It was recommended that she utilize BiPAP while in the hospital and she initially stated that she did not want to use it. She did utilize it overnight and states that it did help her. She is open to utilizing BiPAP at home. Patient states that her quality of life at home has significant significantly decreased recently. She states that she loves to fishand would like to spend time with her family at events but she is too fearful toleave her house for fear of running out of oxygen. Patient does have a significant other, Mike, who was able to help her at home she also has a neighbor who comes down to help her as well. I do feel that Ting would benefit from outpatient palliative care services in which she is open to, for anxiety and shortness of breath. She does understand that palliative care will not be able to assist her with pain management and that would be provided by herprimary care provider. Patient did endorse being a full code and states understanding of the benefits versus burdens of CPR and intubation. I also discussed the possibility of hospice in which she then also became anxious and stated that she was not ready to talk about that quite yet. All questions were answered. Palliative care will continue to follow for goals of care conversations as clinical picture evolves. HPI:The patient is a 69 y/o F w/ PMHx: Valvular Heart Disease, GERD, RLS, Anxiety and Depression, Former tobacco use, Former EtOH Abuse, Hx Non-small celllung cancer status post right lung lobectomy remotely 2003, COPD/Asthma with Chronic Hypoxic Respiratory Failure (2L NC) with allergic rhinitis, HTN who presents to the [facility] ED on 12/26/2024 with history of 3 to 4days of progressively worsening fatigue, malaise, dyspnea with chest tightness and wheezing coupled unfortunately with significant panic attacks whenever she has been attempting to leave the house with a productive cough specifically of yellow sputum prompting ED evaluation be cautious. She does report that she is supposed to have a heart cath at [facility] in the next several weeks because [...] BUN/creatinine 16/0.64, GFR 96, glucose 112, initial [id number] with repeat delta 25, chest x-ray with [...] 1 and Solu-Medrol 125 mg IVx 1. Palliative Assessment Advanced Directive - Current Admission Advance Directive: Advance Directive ON ADMISSION - REFERENCE 3 Do you have a Healthcare No 12/26/24 21:29 Living Will? Do you have a Healthcare Power No 12/26/24 21:29 of Vamp Throater? Do You Want Additional Declined 12/26/24 21:29 Information on Advanced Directives or Healthcare Proxy/DPOA comments: Patient states that her POA would be her significant other Mike. She is in the process of having that paperwork notarized. Psychosocial/Spiritual Information Living situation/Marital status: Patient states that she lives independently with her significant other providingassistance as well as her neighbor. Geographic location: [place] Supports: Family and friends Muslim/Oneida or spiritual preference: No stated jew but states that she is spiritual Spiritual distress: Denies Prior functional status: Patient utilizes a wheelchair when she is in public but utilizes no assistive devices while she is at home. She is able to do her own ADLs. Assistive devices at home: Wheelchair outpatient none at home Cultrual issues: Denies Information about the patient as a person: Patient states that she used to be an outdoor person until she got worse with her COPD. She would like to be able to go fishing again with her grandchild. Symptoms Palliative performance scale: 50 Palliative prognostic index: 6.0(if PPI is greater than 6.0, survival is less than 3 weeks) Dyspnea symptoms: Severe Constipation symptoms: None Nausea symptoms: None Vomiting symptoms: None Depression symptoms: Moderate Anorexia symptoms: None Cough symptoms: Severe Insomnia symptoms: None Diarrhea symptoms: None Fatigue symptoms: Moderate Weakness symptoms: Mild Confusion symptoms: None Objective Data Objective Data Anemia noted with a hemoglobin 8.5 hematocrit 26.3. Immature granulocyte elevated at 1.3. Vital Signs: Vital Signs Temp Pulse Resp BP Pulse Ox O2 Del Method O2 Flow Rate 98.3 F 101 H 18 131/70 H 96 Nasal Cannula 3 12/27/24 10:15 12/27/24 12:46 12/27/24 12:46 12/27/24 10:15 12/27/24 10:15 12/27/24 10:15 12/27/24 10:15 Oxygen Flow Rate (L/min) 3 Oxygen Delivery Method Nasal Cannula Weight: 156 lb 11.979 oz Body Mass Index (BMI) 26.7 Intake & Output: Intake and Output for Last 24 Hours 12/25/24 12/26/24 12/27/24 23:59 23:59 23:59 Intake Total 120 / 120 Output Total 400 / 400 Balance 120 / 120 -400 / -400 Lab / Micro Data Attestation: I reviewed the patient's lab results. 12/27/24 05:50 12/27/24 05:50 Labs: Laboratory Results - last 24 hr 12/26/24 16:20: WBC 9.6, RBC 3.43 L, Hgb 9.2 L, Hct 29.0 L, MCV 84.5, MCH 26.8 L, MCHC 31.7 L, RDW Std Deviation 43.0, RDW Coeff of Augustin 14.0, Plt Count 219, MPV9.3, Immature Gran % (Auto) 0.800, Neut % (Auto) 83.2 H, Lymph % (Auto) 11.3 L, Mineral % (Auto) 4.5, Eos % (Auto) 0.1, [...] High Sens 25 H D 12/26/24 17:57: Magnesium 1.9, Iron 25 L, TIBC 313, Iron Saturation 8.0 L, Unsaturated IBC 288, Ferritin 22, Troponin T Hi Sens 2 Hr 25 H 12/26/24 20:36: Troponin T Hi Sens 4Hr 26 H, Procalcitonin 0.04 12/26/24 22:13: Hgb 8.5 L, Hct 26.5 L 12/27/24 02:08: Hgb 9.3 L, Hct 29.0 L 12/27/24 05:50: WBC 5.4, RBC 3.14 L, Hgb 8.5 L, Hct 26.3 L, MCV 83.8, MCH 27.1, MCHC 32.3, RDW Std Deviation 42.8, RDW Coeff of Augustin 14.2, Plt Count 188, MPV 10.0, Immature Gran % (Auto) 1.300 H, Neut % (Auto) 88.7 H, Lymph % (Auto) 8.1 L, Mineral % (Auto) 1.7, Eos % (Auto) 0.0, Baso % (Auto) 0.2, Absolute Neuts (auto) 4.8, Absolute Lymphs (auto) 0.44 L, Nucleated RBC % 0, Sodium 140, Potassium 3.0L, Chloride 92 L, Carbon Dioxide 39.4 H, Anion Gap 9, BUN 18, Creatinine 0.61 L,Estim Creat Clear Calc 64.18, Est GFR (MDRD) Non-Af 97, BUN/Creatinine Ratio 29.6 H, Glucose 151 H, Calcium 8.9, Iron 17 L, TIBC 305, Iron Saturation 6.0 L, Unsaturated IBC 288, Ferritin 35, Total Bilirubin 0.31, AST 20, ALT 20, AlkalinePhosphatase 46, Total Protein 5.9, Albumin 3.8, Globulin 2.1 L, Albumin/GlobulinRatio 1.8 Micro: Microbiology 12/26/24 21:26 Sputum, Expectorated/Coughed Gram Stain - Final 12/26/24 21:26 Sputum, Expectorated/Coughed Respiratory Culture - Final 12/26/24 20:48 Mucosa - Nasopharyngeal Respiratory Panel (PCR) - Final ABG Data ABG results: ABG 12/26/24 20:41 Specimen Type ART Sample Site L Radial pH 7.44 Bicarbonate Actual 55.5 H Total CO2 > 50 Base Excess > 30 H O2 Saturation 98 O2 % 2.0 ABG pCO2 81.2 H* ABG pO2 106 H Chao Test Positive O2 Delivery Device Cannula Vent Mode Not entered Crit Call To/Read Back Yes Blood Gas Notified Whom White Blood Gas Notified Time 20:42:58 Attestation: I personally reviewed and interpreted this ABG as follows: Radiography Diagnostic Testing: Radiology Impression Chest X-Ray 12/26/24 15:28 IMPRESSION: Posttreatment changes. No acute abnormality. No significant change Reading [id number] Rhythm Strip Rhythm Strip: Sinus Rhythm Rate: 99 Ectopy: None Social Homelessness:: Sheltered Impressions & Recommendations Patient & Family Issues discussed with the patient and family: CODE STATUS and goals of care Patient goal: Patient would like outpatient palliative services to assist with anxiety and dyspnea management Family goal: No family available Ethical & Legal Ethical and legal: Patient plans to have POA paperwork signed and notarized whenshe gets out of the hospital Impressions Impressions: Patient is extremely anxious related to her abilities to utilize oxygen outside of her home. I do feel that the patient may be more able to have better qualityof life if she is able to leave her home. Recommentation Palliative recommendations: I do recommend that the patient receives outpatient palliative. Encouter Achieved as a result of this Palliative Care Encounter: [ [id number]] minutes were spent in total for this visit which consisted, primarily of counseling and education dealing with the complex and emotionally intense issues of symptom management and palliative care in the setting of serious and potentially life-threatening illness. Review of documentation, labs and radiological studies. ?Patient/family had the opportunity to ask questions Plan (1) Acute respiratory insufficiency: PLAN: Medical management per primary team (2) COPD with acute exacerbation: PLAN: Medical management per primary team Recommend condenser for home (3) Respiratory insufficiency: PLAN: Medical management per primary team (4) Anxiety and depression: PLAN: Medical management per primary team (5) Anxiety: PLAN: Medical management per primary team Patient currently has Ativan 0.5 mg p.o. ordered at bedtime. Recommend consideration of twice daily (6) Palliative care encounter: PLAN: Recommend palliative care outpatient services for anxiety and dyspnea management Continued goals of care conversations as clinical picture evolves 12/27/24 1521 <Electronically signed by Stacy WATTS> Cosigner Signature (if applicable): CC: Dr. Yoseph Fall MD~ Signed [facility] Work Phone: [phone] 415-796109-03-2025 Consult note [facility] Medical Records Department [address] [place] [address] Consultation - Palliative Care 12/27/24 1408 MR#: [id number] Acct: [id number] Name: DENIA GONZALEZ Rep #:[id number] : 1955 69 From: Stacy WATTS PCP: Dr. Yoseph Fall MD Status:AD M IN Location: [address] Medical History Afib Aortic valve stenosis RLS [...] bp #60 tabs 0 11/03/24 Unknown Rx furosemide 20 mg tablet 20 mg PO DAILY fluid overloa d 12/27/24 Unknown History simethicone 250 mg capsule (Gas-X) 250 mg PO BID gas 0 12/27/24 Unknown History Allergy/AdvReac Type Severity Reaction Status Date / Time No Known Allergies Allergy Verified 12/26/24 13:56 Family History Mother Hypertension Throat cancer Father Hypertension Stomach cancer Surgical History H/O exploratory laparotomy History of lung surgery History of cholecystectomy Social History household members: significant other and none housing: apartment Smoking Status: Former smoker alcohol intake: former substance use type: does not use Homelessness:: Sheltered Prior Cardiac Testing/Procedures Prior Cardiac Testing/Procedures: Echocardiogram (from September showed EF of 70% preeti grade 1 diastolicdysfunction with severe aortic calcification and stenosis.) ROS ROS Narrative Shortness of breath Constitutional Constitutional: Reports fatigue Eyes Eyes: Reports systems reviewed and no addt'l complaints, except as documented ENT HEENT: Reports systems reviewed and no addt'l complaints, except as documented Cardiovascular Cardiovascular: Reports other Details: Chest tightness Respiratory/Chest Respiratory/Chest: Reports change in phlegm color, chest congestion, chest tightness, dyspnea, dyspnea on exertion, portable oxygen @ home, shortness of breath at rest and shortness of breath with exertion Gastrointestinal Gastrointestinal: Reports systems reviewed and no addt'l complaints, except as documented Genitourinary Genitourinary: Reports systems reviewed and no addt'l complaints, except as documented Musculoskeletal Musculoskeletal: Reports systems reviewed and no addt'l complaints, except as documented Integumentary Integumentary: Reports systems reviewed and no addt'l complaints, except as documented Neurologic Neurologic: Reports systems reviewed and no addt'l complaints, except as documented Psychiatric Psychiatric: Reports anxiety and depression Endocrine Endocrinology: Reports systems reviewed and no addt'l complaints, except as documented Hematologic/Lymphatic Hematologic/Lymphatic: Reports systems reviewed and no addt'l complaints, exceptas documented Allergic/Immunologic Allergic/Immunologic: Reports systems reviewed and no addt'l complaints, except as documented Physical Exam Const alert and oriented x3 Constitutional Narrative: Extremely anxious General Appearance: cooperative HEENT normocephalic Mouth: dry mucous membranes Eyes PERRL Resp Effort and Inspection: tachypneic and uses accessory muscles Auscultation: crackles, rhonchi, wheezes and diminished lung sounds Cardio regular rate GI normal to inspection, nondistended, normoactive bowel sounds Skin no rashes or lesions noted Neuro CN's II-XII intact bilaterally Speech: speech normal Psych Psych Narrative: Patient becomes extremely anxious when talking about uncomfortable topics. Mood & Affect: depressed and anxious Charges/Coding Palliative Care Palliative Care: 34066 New Pt Consult 80+ min HPI Current admission Current Code Status: Full Code, patient became extremely anxious when speaking about CODE STATUS. Associated Diagnosis: COPD exacerbation, severe aortic stenosis and calcification, normocytic anemia Consult Data Date of Consult: 12/27/24 Location of consult: PCU Reason for referral: goals of care and code status Referral source: [facility] Palliative care diagnosis (Summary list): COPD exacerbation Palliative care services/treatment (Accepted, as consult): accepted Case discussed with referring provider: Anxiety management. HPI Narrative HPI Narrative: 12/27/24: Prior to meeting with the patient at bedside I reviewed documentation, labs, and radiological studies also documentation from previous visits in September. I then met with the patient, Ting at bedside. She was sitting on the edge ofthe bed. Audible coarse crackles noted with cough. I introduced myself and theconcept of palliative care which she voluntarily excepted our services. Brandeetates that she received outpatient palliative care services previously but was told that they could nothelp her because she was requiring pain management. Atthis time, I do feel that the patient would benefit from palliative care from anoutpatient standpoint as she does have severe anxiety which is keeping her from having any quality of life and keeps her in her home as well as shortness of breath. Patient states that the majority of her anxiety can be attributed to her fear of running out of oxygen. She states that she only has a small tank for when she goes out of the home and that she is fearful that she will run out of oxygen. She does not have a condenser at home and only has 1 tank at home. I do feel that the patient would benefit from a condenser to help relieve her anxiety for running out of oxygen. She does state that her primary care provider has significantly reduced her pain medications at home in which she previously was receiving 120 tablets/month and that she is now down to 60. Her primary care provider did take her off of her Xanax and now has her on Zoloft twice a day and BuSpar 4 times per day. She does not feel that this combinationis working for her. Patient did become extremely anxious while talking about her medications and her breathing. It was recommended that she utilize BiPAP while in the hospital and she initially stated that she did not want to use it.She did utilize it overnight and states that it did help her. She is open to utilizing BiPAP at home. Patient states that her quality of life at home has significant significantly decreased recently.She states that she loves to fishand would like to spend time with her family at events but she is too fearful toleave her house for fear of running out of oxygen. Patient does have a significant other, Mike, who was able to help her at home she also has a neighbor who comes down to help her as well. I do feel that Ting would benefit from outpatient palliative care services in which she is open to, for anxiety and shortness of breath. She does understand that palliative care will not be able to assist her with pain management and that would be provided by herprimary care provider. Patientdid endorse being a full code and states understanding of the benefits versus burdens of CPR and intubation. I also discussed the possibility of hospice in which she then also became anxious and stated that she was not ready to talk about that quite yet. All questions were answered. Palliative carewill continue to follow for goals of care conversations as clinical picture evolves. HPI:The patient is a 69 y/o F w/ PMHx: Valvular Heart Disease, GERD, RLS, Anxiety and Depression, Former tobacco use, Former EtOH Abuse, Hx Non-small celllung cancer status post right lung lobectomyremotely 2003, COPD/Asthma with Chronic Hypoxic Respiratory Failure (2L NC) with allergic rhinitis,HTN who presents to the [facility] ED on 12/26/2024 with history of 3 to 4days of progressively worsening fatigue, malaise, dyspnea with chest tightness and wheezing coupled unfortunately with significant panic attacks whenever she has been attempting to leave the house with a productive cough specifically of yellow sputum prompting ED evaluation be cautious. She does report that she is supposed to have a heart cath at [facility] in the next several weeks because of valvular heart disease for evaluation. Patient reports that her stools she believes have been normal in appearance. He does describe ongoing constant tightness with her dyspnea in the chest but no specific stabbing painor significant pressure or pleuritic discomfort. Workup in [...] BUN/creatinine 16/0.64, GFR 96, glucose 112, initial [id number] with repeat delta 25, chest x-ray with surgical clips overlying the upper mediastinum and right paratracheal region with some local volume loss and linearscarring as well as COPD type changes with no acute cardiopulmonary f indings, EKG with SR with nonspecific changes with no acute evidence of ischemia. In the ED patientministered albuterol treatment x 3 and DuoNeb therapy x 1 in additionto Xanax 0.25 mg p.o. x 1, doxycycline 100 mg p.o. x 1 and Solu- Medrol 125 mg IVx 1. Palliative Assessment Advanced Directive - Current Admission Advance Directive: Advance Directive ON ADMISSION - REFERENCE 3 Do you have a Healthcare No 12/26/24 21:29 Living Will? Do you have a Healthcare Power No 12/26/24 21:29 of Vamp Throater? Do You Want Additional Declined 12/26/24 21:29 Information on Advanced Directives or Healthcare Proxy/DPOA comments: Patient states that her POA would be her significant other Mike. She is in the process of having that paperwork notarized. Psychosocial/Spiritual Information Living situation/Marital status: Patient states that she lives independently with her significant other providingassistance as well as her neighbor. Geographic location: [place] Supports: Family and friends Muslim/Oneida or spiritual preference: No stated jew but states that she is spiritual Spiritual distress: Denies Prior functional status: Patient utilizes a wheelchair when she is in public but utilizes no assistive devices while she is at home. She is able to do her own ADLs. Assistive devices at home: Wheelchair outpatient none at home Cultrual issues: Denies Information about the patient as a person: Patient states that she used to be an outdoor person until she got worse with her COPD. She would like to be able to go fishing again with her grandchild. Symptoms Palliative performance scale: 50 Palliative prognostic index: 6.0(if PPI is greater than 6.0, survival is less than 3 weeks) Dyspnea symptoms: Severe Constipation symptoms: None Nausea symptoms: None Vomiting symptoms: None Depression symptoms: Moderate Anorexia symptoms: None Cough symptoms: Severe Insomnia symptoms: None Diarrhea symptoms: None Fatigue symptoms: Moderate Weakness symptoms: Mild Confusion symptoms: None Objective Data Objective Data Anemia noted with a hemoglobin 8.5 hematocrit 26.3. Immature granulocyte elevated at 1.3. Vital Signs: Vital Signs Temp Pulse Resp BP Pulse Ox O2 Del Method O2 Flow Rate 98.3 F 101 H 18 131/70 H 96 Nasal Cannula 3 12/27/24 10:15 12/27/24 12:46 12/27/24 12:46 12/27/24 10:15 12/27/24 10:15 12/27/24 10:15 12/27/24 10:15 Oxygen Flow Rate (L/min) 3 Oxygen Delivery Method Nasal Cannula Weight: 156 lb 11.979 oz Body Mass Index (BMI) 26.7 Intake & Output: Intake and Output for Last 24 Hours 12/25/24 12/26/24 12/27/24 23:59 23:59 23:59 Intake Total 120 / 120 Output Total 400 / 400 Balance 120 / 120 -400 / -400 Lab / Micro Data Attestation: I reviewed the patient's lab results. 12/27/24 05:50 12/27/24 05:50 Labs: Laboratory Results - last 24 hr 12/26/24 16:20: WBC 9.6, RBC 3.43 L, Hgb 9.2 L, Hct 29.0 L, MCV 84.5, MCH 26.8 L, MCHC 31.7 L, RDW Std Deviation 43.0, RDW Coeff of Augustin 14.0, Plt Count 219, MPV9.3, Immature Gran % (Auto) 0.800, Neut% (Auto) 83.2 H, Lymph % (Auto) 11.3 L, Mineral % (Auto) 4.5, Eos % (Auto) 0.1, Baso % (Auto) 0.1, Absolute Neuts (auto) 8.0 H, Absolute Lymphs (auto) 1.08, Nucleated RBC % 0, Sodium 137, Potassium 4.0,Chloride 88 L, Carbon Dioxide 41.6 H, Anion Gap 8, BUN 16, Creatinine 0.64 L, Estim Creat Clear Calc 65.40, Est GFR (MDRD) Non-Af 96, BUN/Creatinine Ratio 25.1 H, Glucose 112 H, Calcium 8.9, TroponinT High Sens 25 H D 12/26/24 17:57: Magnesium 1.9, Iron 25 L, TIBC 313, Iron Saturation 8.0 L, Unsaturated IBC 288, Ferritin 22, Troponin T Hi Sens 2 Hr 25 H 12/26/24 20:36: Troponin T Hi Sens 4Hr 26 H, Procalcitonin 0.04 12/26/24 22:13: Hgb 8.5 L, Hct 26.5 L 12/27/24 02:08: Hgb 9.3 L, Hct 29.0 L 12/27/24 05:50: WBC 5.4, RBC 3.14 L, Hgb 8.5 L, Hct 26.3 L, MCV 83.8, MCH 27.1, MCHC 32.3, RDW Std Deviation 42.8, RDW Coeff of Augustin 14.2, Plt Count 188, MPV 10.0, Immature Gran % (Auto) 1.300 H, Neut% (Auto) 88.7 H, Lymph % (Auto) 8.1 L, Mineral % (Auto) 1.7, Eos % (Auto) 0.0, Baso % (Auto) 0.2, Absolute Neuts (auto) 4.8, Absolute Lymphs (auto) 0.44 L, Nucleated RBC % 0, Sodium 140, Potassium 3.0L,Chloride 92 L, Carbon Dioxide 39.4 H, Anion Gap 9, BUN 18, Creatinine 0.61 L,Estim Creat Clear Calc64.18, Est GFR (MDRD) Non-Af 97, BUN/Creatinine Ratio 29.6 H, Glucose 151 H, Calcium 8.9, Iron 17 L, TIBC 305, Iron Saturation 6.0 L, Unsaturated IBC 288, Ferritin 35, Total Bilirubin 0.31, AST 20, ALT 20, AlkalinePhosphatase 46, Total Protein 5.9, Albumin 3.8, Globulin 2.1 L, Albumin/GlobulinRatio1.8 Micro: Microbiology 12/26/24 21:26 Sputum, Expectorated/Coughed Gram Stain - Final 12/26/24 21:26 Sputum, Expectorated/Coughed Respiratory Culture - Final 12/26/24 20:48 Mucosa - Nasopharyngeal Respiratory Panel (PCR) - Final ABG Data ABG results: ABG 12/26/24 20:41 Specimen Type ART Sample Site L Radial pH 7.44 Bicarbonate Actual 55.5 H Total CO2 > 50 Base Excess > 30 H O2 Saturation 98 O2 % 2.0 ABG pCO2 81.2 H* ABG pO2 106 H Chao Test Positive O2 Delivery Device Cannula Vent Mode Not entered Crit Call To/Read Back Yes Blood Gas Notified Whom White Blood Gas Notified Time 20:42:58 Attestation: I personally reviewed and interpreted this ABG as follows: Radiography Diagnostic Testing: Radiology Impression Chest X-Ray 12/26/24 15:28 IMPRESSION: Posttreatment changes. No acute abnormality. No significant change Reading [id number] Rhythm Strip Rhythm Strip: Sinus Rhythm Rate: 99 Ectopy: None Social Homelessness:: Sheltered Impressions & Recommendations Patient & Family Issues discussed with the patient and family: CODE STATUS and goals of care Patient goal: Patient would like outpatient palliative services to assist with anxiety and dyspnea management Family goal: No family available Ethical & Legal Ethical and legal: Patient plans to have POA paperwork signed and notarized whenshe gets out of thespital Impressions Impressions: Patient is extremely anxious related to her abilities to utilize oxygen outside of her home. I do feel that the patient may be more able to have better qualityof life if she is able to leave her home. Recommentation Palliative recommendations: I do recommend that the patient receives outpatient palliative. Encouter Achieved as a result of this Palliative Care Encounter: [ [id number]] minutes were spent in total for this visit which consisted, primarily of counseling and education dealing with the complex and emotionally intense issues of symptom management and palliative care in the setting of serious and potentially life-threatening illness. Review of documentation, labs and radiological studies. ?Patient/family had the opportunity to ask questions Plan (1) Acute respiratory insufficiency: PLAN: Medical management per primary team (2) COPD with acute exacerbation: PLAN: Medical management per primary team Recommend condenser for home (3) Respiratory insufficiency: PLAN: Medical management per primary team (4) Anxiety and depression: PLAN: Medical management per primary team (5) Anxiety: PLAN: Medical management per primary team Patient currently has Ativan 0.5 mg p.o. ordered at bedtime. Recommend consideration of twice daily (6) Palliative care encounter: PLAN: Recommend palliative care outpatient services for anxiety and dyspnea management Continued goals of care conversations as clinical picture evolves 12/27/24 1521 Cosigner Signature (if applicable): CC: Dr. Yoseph Fall MD~ Signed [facility]09-03-2025 Telephone encounter Note* Telephone Encounter - Sukhi Marrero RN - 12/27/2024 2:47 PM EDT Palma Anguiano with [facility] calls to let provider know that patient was admitted to [facility] last evening for COPD exacerbation. [facility] Sukhi Marrero RN [facility]09-02-2025 History and physical note Author Dionne Porter [facility] Note Date/Time December 26, 2024 8:21pm [facility] Medical Records Department [address] [place] [address] H&P Exam - Hospitalist 12/26/241955 MR#: [id number] Acct: [id number] Name: DENIA GONZALEZ Rep #:[id number] : 1955 69 From: Dionne Porter MD PCP: Dr. Yoseph Fall MD Status:AD M [id number] HPI - General General Date of [...] allergic rhinitis, HTN who presents to the [facility] ED on 12/26/2024 with history of [...] have a heart cath at [facility] in the next several weeks because [...] BUN/creatinine 16/0.64, GFR 96, glucose 112, initial [id number] with repeat delta 25, chest x-ray with [...] 1 and Solu-Medrol 125 mg IVx 1. [facility] Medical History Afib Aortic valve stenosis RLS [...] 83.2 H, Lymph % (Auto) 11.3 L, Mineral % (Auto) 4.5, Eos % (Auto) 0.1, [...] acute abnormality. No significant change Reading [id number] Assessment & Plan Assessment/Plan (1) COPD with acute exacerbation: PLAN: Plan The patient is a 69 y/o F w/ PMHx: Valvular Heart Disease, GERD, RLS, Anxiety and Depression, Former tobacco use, Former EtOH Abuse, Hx Non-small cell lung cancer status post right lung lobectomy remotely 2003, COPD/Asthma with Chronic Hypoxic Respiratory Failure (2L NC) with allergic rhinitis, HTN who presents to the [facility] ED on 12/26/2024 with history of [...] as noted for evaluation at [facility] with upcoming cardiac catheterization for consideration [...] 16 minutes. Charges/Coding Visit Charges Inpatient E&M: 51692 Init Hosp L3 Procedures Hospitalists Procedures: 10000 Advncd Care Plan 30 Min 12/26/242020 <Electronically signed by Dionne Porter MD> Cosigner Signature (if applicable): CC: Dr. Dionne Porter MD; Dr. Yoseph Fall MD~ Signed [facility] Work Phone: 1(223) 377-447509-02-2025 Discharge summary Author Marcel Zarate [facility] Note Date/Time December 26, 2024 8:00pm [facility] Medical Records Department [address] [place] [address] Emergency Department Summary 12/26/24 MR#: [id number] Acct: [id number] Name: DENIA GONZALEZ Rep #:[id number] : 1955 69 From: Marcel Zarate MD [...] to have a heartcath at [facility] within the next several weeks because of a leaky valve, her leg swelling is stable. She has been anticoagulated on apixaban because of A-fib. [facility] Medical History Afib Aortic valve stenosis [...] 83.2 H Lymph % (Auto) 11.3 L Mineral % (Auto) 4.5 Eos % (Auto) 0.1 [...] acute abnormality. No significant change Reading Location[id number] Rhythm Strip Rhythm Strip: Sinus Rhythm Rate: [...] Acute anemia Disposition Disposition: Acute Care Hospital [facility] What to do if you have Problems For any increased pain, shortness of breath, bleeding, nausea or vomiting, chestpain, or any unexpected problems, contact your Primary Care Provider. Call [facility] ([phone]) or report to the closest Emergency Room. Call 911 if necessary. 12/26/241999 <Electronically signed by Marcel Zarate MD> Cosigner Signature (if applicable): CC: Dr. Yoseph Fall MD ~ Signed [facility] Work Phone: 1(855) 171-155509-02-2025 History and physical note [facility] Medical Records Department [address] [place] [address] H&P Exam - Hospitalist 12/26/241955 MR#: [id number] Acct: [id number] Name: DENIA GONZALEZ Rep #:[id number] : 1955 69 From: Dionne Porter MD PCP: Dr. Yoseph Fall MD Status:AD M IN Location: [facility] [id number] HPI - General General Date of [...] Respiratory Failure (2L NC) with allergic rhinitis, HTNwho presents to the [facility] ED on 12/26/2024 with history of 3 to 4 days of progressively worsening fatigue, malaise, dyspnea with chest tightness and wheezing coupled unfortunately with significant panic attacks whenever she has been attempting to leave the house with a productivecough specifically of yellow sputum prompting ED evaluation be cautious. She does report that she is supposed to have a heart cath at [facility] in the next several weeks because of valvular heart diseasefor evaluation. Patient reports that her stools she believes have been normal in appearance. He does describe ongoing constant tightness with her dyspnea in the chest but no specific stabbing pain orsignificant pressure or pleuritic discomfort. Workup in the [...] BUN/creatinine 16/0.64, GFR 96, glucose 112, initial [id number] with repeat delta 25, chest x-ray with surgical clips overlying the upper mediastinum and right paratracheal region with somelocal volume loss and linearscarring as well as COPD type changes with no acute cardiopulmonary findings, EKG with SR with nonspecific changes with no acute evidence of ischemia. In the ED patient min istered albuterol treatment x 3 and DuoNeb therapy x 1 in additionto Xanax 0.25 mg p.o. x 1, doxycycline 100 mg p.o. x 1 and Solu-Medrol 125 mg IVx 1. PFSH Medical History Afib Aortic valve stenosis RLS [...] grossly normal, moving all 4 extremities, no focaldeficits, strength moderatelyto severely globally decreased. Psychiatric: Affect [...] 219, MPV9.3, Immature Gran % (Auto) 0.800, Neut% (Auto) 83.2 H, Lymph % (Auto) 11.3 L, Mineral % (Auto) 4.5, Eos % (Auto) 0.1, Baso % (Auto) 0.1, Absolute Neuts (auto) 8.0 H, Absolute Lymphs (auto) 1.08, Nucleated RBC % 0, Sodium 137, Potassium 4.0,Chloride 88 L, Carbon Dioxide 41.6 H, Anion Gap 8, BUN 16, Creatinine 0.64 L, Estim Creat Clear Calc 65.40, Est GFR (MDRD) Non-Af 96, BUN/Creatinine Ratio 25.1 H, Glucose 112 H, Calcium 8.9, TroponinT High Sens 25 H D 12/26/24 17:57: Troponin T Hi Sens 2 Hr 25 H Rhythm Strip Rhythm Strip: Sinus Rhythm Rate: 99 Ectopy: None Imaging Radiology Impression Chest X-Ray 12/26/24 15:28 IMPRESSION: Posttreatment changes. No acute abnormality. No significant change Reading Location: [id number] Assessment & Plan Assessment/Plan (1) COPD with acute exacerbation: PLAN: Plan The patient is a 69 y/o F w/ PMHx: Valvular Heart Disease, GERD, RLS, Anxiety and Depression, Former tobacco use, Former EtOH Abuse, Hx Non-small cell lung cancer status post right lung lobectomy remotely 2003, COPD/Asthma with Chronic Hypoxic Respiratory Failure (2L NC) with allergic rhinitis, HTNwho presents to the [facility] ED on 12/26/2024 with history of 3 to 4 days of progressively worsening fatigue, malaise, dyspnea with chest tightness and wheezing coupled unfortunately with significant panic attacks whenever she has been attempting to leave the house with a productivecough specifically of yellow sputum prompting ED evaluation be cautious. #1. Acute on Chronic COPD exacerbation with acute hypoxia on chronic hypoxic respiratory failure inaddition to significant acute new onset normocytic anemiaof unclear significance as noted #2 with indeterminate cardiac enzymes of unclear significance: Will admit to PCU in case of BIPAP needs, willcycle cardiac enzymes to be cautious although suspect [...] mmHg at which point patient was started atMultaq, Coreg and verapamil as well as Eliquis with plan as noted for evaluation at [facility] with upcoming cardiac catheterization for consideration [...] patient on sertraline, twice daily buspirone and low-doselorazepam regimen, as noted administered low-dose of Xanax [...] 16 minutes. Charges/Coding Visit Charges Inpatient E&M: 48582 Init Hosp L3 Procedures Hospitalists Procedures: 57259 Advncd Care Plan 30 Min 12/26/242020 Cosigner Signature (if applicable): CC: Dr. Dionne Porter MD; Dr. Yoseph Fall MD~ Signed [facility]09-02-2025 Discharge summary [facility] Medical Records Department [address] [place] [address] Emergency Department Summary 12/26/24 MR#: [id number] Acct: [id number] Name: DENIA GONZALEZ Rep #:[id number] : 1955 69 From: Marcel Zarate MD [...] to have a heartcath at [facility] within the next several weeks because of a leaky valve, her leg swelling is stable. She has been anticoagulated onapixaban because of A-fib. [facility] Medical History Afib Aortic valve stenosis [...] some Rales diffusely, symmetrically. Trachea midline. No respiratorydistress. Able to converse in full sentences. Cardio [...] measurement came back unchanged for a delta of0. She was given another albuterol in the meantime. I offered admission she initially wanted to go home, but she moved from the bed to the bedside commode and she was so winded that it took her 5-10 minutes to recover. She is asking for something for anxiety, specifically alprazolam, so I am givingher a dose along with Solu-Medrol, doxycycline, another [...] 83.2 H Lymph % (Auto) 11.3 L Mineral % (Auto) 4.5 Eos % (Auto) 0.1 [...] acute abnormality. No significant change Reading Location: [id number] Rhythm Strip Rhythm Strip: Sinus Rhythm Rate: [...] Acute anemia Disposition Disposition: Acute Care Hospital [facility] What to do if you have Problems For any increased pain, shortness of breath, bleeding, nausea or vomiting, chestpain, or any unexpected problems, contact your Primary Care Provider. Call [facility] ([phone]) or report tothe closest Emergency Room. Call 911 if necessary. 12/26/241999 Cosigner Signature (if applicable): CC: Dr. Yoseph Fall MD ~ Signed [facility]09-02-2025 Radiology Diagnostic study note [facility] Imaging Services [address] [place] [address] Chest 1 View (Portable) MR#: [id number] Acct: [id number] Name: DENIA GONZALEZ Rep #: [id number] : 1955 F 69 From: Yaa Becerra MD PCP: Dr. Yoseph Fall MD Status: MT E ER Study:Chest 1 View (Portable) Date of Exam: 12/26/24 Exam# [id number] Ordering Dr: Hema Cardona PROCEDURE: CHEST 1 VIEW (PORTABLE) 12/26/2024 REASON [...] acute abnormality. No significant change Reading [id number] CC: Dr. Yoseph Fall MD; ED PHYSICIAN PROVIDER ~ Electric Motor Repair Supervisor: Signed [facility]09-02-2025 Discharge summary Author Marcel Harrisone [facility] Note Date/Time December 26, 2024 8:00pm [facility] Medical Records Department [address] [place] [address] Emergency Department Summary 12/26/24 MR#: [id number] Acct: [id number] Name: DENIA GONZALEZ Rep #:[id number] : 1955 69 From: Marcel Zarate MD [...] to have a heartcath at [facility] within the next several weeks because of a leaky valve, her leg swelling is stable. She has been anticoagulated on apixaban because of A-fib. [facility] Medical History Afib Aortic valve stenosis [...] 83.2 H Lymph % (Auto) 11.3 L Mineral % (Auto) 4.5 Eos % (Auto) 0.1 [...] acute abnormality. No significant change Reading Location: [id number] Rhythm Strip Rhythm Strip: Sinus Rhythm Rate: [...] Anticoagulated on apixaban, Acute anemia Disposition Disposition: [facility] What to do if you have Problems For any increased pain, shortness of breath, bleeding, nausea or vomiting, chestpain, or any unexpected problems, contact your Primary Care Provider. Call [facility] ([phone]) or report to the closest Emergency Room. Call 911 if necessary. 12/26/241999 <Electronically signed by Marcel Zarate MD> Cosigner Signature (if applicable): CC: Dr. Yoseph Fall MD ~ Signed [facility] Work Phone: 1(951) 815-261009-02-2025 Telephone encounter Note* Telephone Encounter - Broderick BanLAURIE pina - 12/26/2024 9:56 AM EDT Images from the original note were not included. Electronic PA rec'd and completed. Prior authorization approved Payer: [employer] HOME [employer] [phone] Note from payer: CaseId:[id number];Status:Approved;Review Type:Prior Auth;Coverage Start Date:11/22/2024;Coverage End Date:12/22/2025; Approval [...] to its destination. To be filled at: [facility] [address] - [place] [address] [address] [facility] - [phone] [facility]09-02-2025 Miscellaneous Notes* Telephone Encounter - Ban Villafana LPN - 12/26/2024 9:56 AM EDT Images from the original note were not included. Electronic PA rec'd and completed. Prior authorization approved Payer: [employer] HOME [employer]IVERY [phone] Note from payer: CaseId:[id number];Status:Approved;Review Type:Prior Auth;Coverage Start Date:11/22/2024;Coverage End Date:12/22/2025; Approval [...] to its destination. To be filled at: [facility] - [place] [address] [address] [facility] - [phone] documented in this encounterMem[facility] Telephone encounter Note * Telephone Encounter - Judy Bliss RN - 12/22/2024 9:40 AM EDT Daughter in Law Giovanniee called and notified that prescription was sent to pharmacy. Voices understanding. Judy Bliss RN [facility]08-29-2025 Miscellaneous Notes* Telephone Encounter - Judy Bliss RN - 12/22/2024 9:40 AM EDT Daughter in Law Symontee called and notified that prescription was sent [...] advise, Judy Bliss RN documented in this encounterMemorial [facility]08-29-2025 Telephone encounter Note * Telephone Encounter - Yoseph Fall MD - 12/22/2024 9:22 AM EDT OK for Atarax as ordered Yoseph Fall MD [facility]08-29-2025 Telephone encounter Note* Telephone Encounter - [...] Please review and advise, Judy Bliss RN [facility]08-26-2025 Telephone encounter Note* Telephone Encounter - Naima Haines MA - 12/19/2024 3:21 PM EDT Symontee notified. Naima Haines MA [facility]08-26-2025 Miscellaneous Notes* Telephone Encounter - Naima [...] 19, 2024 12:30 PM documented in this encounterMemorial [facility]-2025 Telephone encounter Note * Telephone Encounter - Yoseph Fall MD - 12/19/2024 2:59 PM EDT OK to refill as ordered OK to increase Buspar to 20 mg bid as ordered to help with increased anxiety Yoseph Fall MD [facility]08-26-2025 Telephone encounter Note* Telephone Encounter - [...] Bliss RN December 19, 2024 12:30 PM [facility]08-22-2025 NotePROCEDURE: L/RHC PROCEDURE DATE: 01/05/25 PROCEDURE TIME: 10 am ARRIVE AT 8:30 am Report to the Central Lounge (first floor) at the hospital entrance at [address] [place] [address] Street. Nothing to eat or drink after midnight [...] of procedure. Please make arrangements for a road driver after the procedure. You will not [...] call the Prep and Recovery area at [phone]. The schedule is not finalized until the afternoon, so please avoid calling before 4:30 pm.[facility]08-22-2025 NoteDx: Procedure: L/RHC Date/Time: 01/05/25 at 10:00a Surgeon: TATYANA Location: [facility] Admission: OP Anesthesia: N/A Patient agreeable to above date/time. On PB calendar and printed card to start auth.[facility]08-22-2025 History of Present illness Narrative* Rubi Corbett MD - 12/15/2024 3:00 PM EDT Images from the original note were not included. [facility]: Cardiothoracic Surgery Multidisciplinary Heart Valve Clinic Date: 12/14/24 Patient:Denia Gonzalez 1955 69 y.o. female [id number] Subjective: HPI: Denia Gonzalez 69 y.o. referred [...] a past medical history of A-fib (CMS/HCC) ([facility]), Anxiety, Aortic stenosis, Asthma, Chronic respiratory failure (HCC), COPD (chronic obstructive pulmonary disease) ([facility]), Depressed, History of ETOH abuse, HTN (hypertension), [...] by mouth 2 times daily. 11/09/24 Historical ProviderMD omeprazole (PriLOSEC) [address] capsule TAKE 1 CAPSULE BY MOUTH DAILY ON AN EMPTY STOMACH 09/22/24 Historical ProviderMD predniSONE (Deltasone) 10 MG tablet Take 1.5 pills every day or every other day as needed 11/13/24 Historical ProviderMD rOPINIRole (Requip) 0.25 MG tablet Take 0.25 mg by mouth Nightly. 09/22/24 Historical Provider, sertraline (Zoloft) 100 MG tablet Take 200 mg by mouth daily. 09/22/24 Historical Provider, tiotropium (Spiriva) [address] 1 capsule into inhaler and inhale. As instructed 09/15/24 Historical ProviderMD verapamil SR (Calan SR) 240 MG ER tablet Take 240 mg by mouth Nightly. 09/22/24 Historical Provider, Objective: There were no vitals taken for this visit. @[id number]@ Physical Exam Constitutional: Appearance: Normal appearance. HENT: [...] echocardiography,and other diagnostic images. documented in this [facility]08-22-2025 History of Present illness Narrative* Zaria Shea MD - 12/15/2024 2:30 PM EDT Images from the original note were not included. [facility] CARDIOLOGY - [address] [address] Dept: [phone] Dept Visit type: New : 1955 Reason for Visit: New patient, Heart Valve Clinic Assessment and Plan 1. Preop cardiovascular exam - CBC auto differential - Comprehensive metabolic panel - Case Request Cnc Mill And Lathe Operator: Left and right heart cath / [...] by mouth daily., Disp: , Rfl: HYDROcodone-acetaminophen (Franklin) 5-325 MG tablet, Take 1 tablet by [...] Father Stomach cancer Father documented in this [facility]08-15-2025 Telephone encounter Note* Telephone Encounter - Ban Villafana LPN - 12/08/2024 10:37 AM EDT Images from the original note were not included. prior authorization approved Payer: [employer] [phone] Note from payer: CaseId:[id number];Status:Approved;Review Type:Prior Auth;Coverage Start Date:11/08/2024;Coverage End Date:12/08/2025; Approval [...] to its destination. To be filled at: [facility] [address] [place] [address] [address] [facility] - [phone] Pharmacy notified. [facility]08-15-2025 Miscellaneous Notes* Telephone Encounter - Ban Villafana LPN - 12/08/2024 10:37 AM EDT Images from the original note were not included. prior authorization approved Payer: [employer]IV[employer] [phone] Note from payer: CaseId:[id number];Status:Approved;Review Type:Prior Auth;Coverage Start Date:11/08/2024;Coverage End Date:12/08/2025; Approval [...] to its destination. To be filled at: [facility] [address] [place] [address] [address] [facility] - [phone] Pharmacy notified. * Telephone Encounter - Ban Villafana LPN - 12/08/2024 10:31 AM EDT Electronic PA rec'd and completed for cyclobenzaprine (FLEXERIL) 10 mg tablet documented in this encounterMemorial [facility]08-[facility]-2025 Telephone encounter Note * Telephone Encounter - Ban Villafana LPN - 12/08/2024 10:31 AM EDT Electronic PA rec'd and completed for cyclobenzaprine (FLEXERIL) 10 mg tablet [facility]08-15-2025 Telephone encounter Note* Telephone Encounter - Nelson Robert APRN.CNP - 12/08/2024 9:26 AM EDT The following approved medication requests have been transmitted electronically. Requested Prescriptions Pending Prescriptions Disp Refills cyclobenzaprine (FLEXERIL) 10 mg tablet 60 tablet 5 Sig: Take 1 tablet by mouth two times a day as needed for muscle spasm. Nelson Robert APRN.CNP [facility]08-15-2025 Miscellaneous Notes* Telephone Encounter - Nelson Robert APRN.CNP - 12/08/2024 9:26 AM EDT The following approved medication requests have been transmitted electronically. Requested Prescriptions Pending Prescriptions Disp Refills cyclobenzaprine (FLEXERIL) 10 mg tablet 60 tablet 5 Sig: Take 1 tablet by mouth two times a day as needed for muscle spasm. Nelson Robert APRN.CNP * Telephone Encounter - Cami Louie RN - 12/08/2024 9:18 AM EDT [...] a day as needed for muscle spasm. Cami Louie RN December 08, 2024 9:19 AM documented in this encounterMemorial [facility]08-[facility]-2025 Telephone encounter Note * Telephone Encounter - Cami Louie RN - 12/08/2024 9:18 AM EDT [...] a day as needed for muscle spasm. Cami Louie RN December 08, 2024 9:19 AM [facility]08-05-2025 Telephone encounter Note* Telephone Encounter - Heena Howell - 11/28/2024 4:15 PM EDT Chart made and MAILER APPRENTICE packet mailed [id number] Miscellaneous Notes* Telephone Encounter - Heena Howell - 11/28/2024 4:15 PM EDT Chart made and MAILER APPRENTICE packet mailed * Telephone Encounter - Heena Howell - 11/23/2024 1:52 PM EDT Records scanned under Media and paper referral on my desk to make chart * Telephone Encounter - Heena Howell - 11/22/2024 1:08 PM EDT VC appt made I need to make chart and mail MAILER APPRENTICE packet. Working on getting records scanned in. documented in this encounterSWyandot Memorial [id number] Telephone encounter Note* Telephone Encounter - Yoseph Fall MD - 11/27/2024 3:12 PM EDT Noted and agree Yoseph Fall MD [facility]08-04-2025 Miscellaneous Notes* Telephone Encounter - Yoseph Fall MD - 11/27/2024 3:12 PM EDT Noted and agree Yoseph Fall MD * Telephone Encounter - Padmini Abbott RN - 11/27/2024 2:12 PM EDT Rafa with [facility] Nursing calling and states he plans to add 1 more visit to pt's plan of care, to discharge patient. No call back needed if provider agreeable with this. Padmini Abbott RN documented in this encounterMemorial Health [facility]08-04-2025 Telephone encounter Note * Telephone Encounter - Padmini Abbott RN - 11/27/2024 2:12 PM EDT Rafa with [facility] Nursing calling and states he plans to add 1 more visit to pt's plan of care, to discharge patient. No call back needed if provider agreeable with this. Padmini Abbott RN [facility]08-01-2025 Telephone encounter Note* Telephone Encounter - Richard Broussard RN - 11/24/2024 3:30 PM EDT Palliative Medicine at Home Care Coordination New Patient Note My chart note sent. Nurse introduced self and role of Fiberglass Bonding Machine Tender in Palliative Medicine. Reviewed contact sheet information and on-call process. Nurse educated patient on medication refill process. Nurse encouraged patient to call with any questions/concerns/symptom related issues. Richard Broussard RN Core Cleaner [facility]08-01-2025 Miscellaneous Notes* Telephone Encounter - Richard Broussard RN - 11/24/2024 3:30 PM EDT Palliative Medicine at Home Care Coordination New Patient Note My chart note sent. Nurse introduced self and role of Fiberglass Bonding Machine Tender in Palliative Medicine. Reviewed contact sheet information and on-call process. Nurse educated patient on medication refill process. Nurse encouraged patient to call with any questions/concerns/symptom related issues. Richard Broussard RNCC Core Cleaner documented in this encounterMemorial Health [facility]08-01-2025 Telephone encounter Note * Telephone Encounter - Connor Shaw LISW - 11/24/2024 11:11 AM EDT November 24, 2024 Opened by mistake, please disregard. ANAM Sagastume [facility] [employer] [phone] [facility] Work Phone: 1(126) 741-411408-01-2025 Miscellaneous Notes* Telephone Encounter - Connor Shaw LISW - 11/24/2024 11:11 AM EDT November 24, 2024 Opened by mistake, please disregard. ANAM Sagastume [facility] [employer] [phone] documented in this encounterMemorial Health [facility]08-[facility]-2025 Telephone encounter Note * Telephone Encounter - Yoseph Fall MD - 11/24/2024 10:30 AM EDT OK for doxycycline as ordered Yoseph Fall MD [facility]08-01-2025 Miscellaneous Notes* Telephone Encounter - Yoseph Fall MD - 11/24/2024 10:30 AM EDT OK for doxycycline as ordered Yoseph Fall MD * Telephone Encounter - Naima Haines MA - 11/23/2024 2:50 PM EDT Pt states she still feels like she needs an antibiotic, unable to take Levaquin due to medication interaction. [facility] [place]. Naima Haines MA * Telephone Encounter - Yoseph Fall MD - 11/23/2024 2:33 PM EDT Does she feel that she still needs an antibiotic? Yoseph Fall MD * Telephone Encounter - Sukhi Marrero RN - 11/20/2024 3:14 PM EDT Rafa RN with [facility] calls to let provider know that he [...] Dr. Fall for when returns or if MAILER APPRENTICE would review. Sukhi Marrero, KAREN documented in this encounterMemorial Health [facility]07-31-2025 Telephone encounter Note * Telephone Encounter - Naima Haines MA - 11/23/2024 2:50 PM EDT Pt states she still feels like she needs an antibiotic, unable to take Levaquin due to medication interaction. Drug [place] [place]. Naima Haines MA [facility]07-31-2025 Telephone encounter Note* Telephone Encounter - Yoseph Fall MD - 11/23/2024 2:33 PM EDT Does she feel that she still needs an antibiotic? Yoseph Flal MD [facility]07-31-2025 Telephone encounter Note* Telephone Encounter - Yoseph Fall MD - 11/23/2024 2:23 PM EDT OK to refill as ordered Yoseph Fall MD [facility]07-31-2025 Miscellaneous Notes* Telephone Encounter - Yoseph Fall MD - 11/23/2024 2:23 PM EDT OK to refill as ordered Yoseph Fall MD * Telephone Encounter - Cami Louie RN - 11/23/2024 12:58 PM EDT [...] for pain for up to 30 days. Cami Louie RN November 23, 2024 1:00 PM documented in this encounterMemorial [facility]07-[facility]-2025 NoteRecords scanned under Media and paper referral on my desk to make [facility] 11-23-2024 Telephone encounter Note* Telephone Encounter - Heena Howell - 11/23/2024 1:52 PM EDT Records scanned under Media and paper referral on my desk to make chart [id number] Telephone encounter Note* Telephone Encounter - Cami Louie RN - 11/23/2024 12:58 PM EDT [...] for pain for up to 30 days. Cami Louie RN November 23, 2024 1:00 PM [facility]07-31-2025 Instructions* Patient Instructions* Gregor Fernandez APRN.MARINE INSURANCE CLAIM EXAMINER - 11/23/2024 9:58 AM EDT Denia, It [...] of breath, or swelling, please contact your cat scan technologist or go to the emergency room. - COPD and Breathing Support: - Continue using your nebulizer every 6 hours as directed. - Continue taking Spiriva and Singulair as prescribed. - You are doing well with nicotine patches and have stopped smoking. Please continue using the patches as needed. - A manager social will reach out to explore options for [...] reach out to your primary care provider, cat scan technologist,or palliative care team with any concerns. Good luck with your upcoming appointments and tests. Thank You, rGegor Fernandez CNP documented in this encounterJose Ville [id number] History of Present illness Narrative* Gregor Fernandez APRN.MARINE INSURANCE CLAIM EXAMINER - 11/23/2024 7:00 AM EDT PALLIATIVE MEDICINE AT HOME INITIAL CONSULT SERVICE DATE: 11/23/2024 Referring Physician: Yoseph Fall [address] [facility] [address] Primary Physician: Yoseph Fall MD IDENTIFICATION AND INTRODUCTION: Denia Gonzalez is a 69 year old female This visit took place Virtually; I have communicated my name and active licensure. The patient's identity and physical location were verified at the time of this visit. The patient or their legal client relations representative has been informed of the risks and benefits of -- and alternatives to -- treatment through a remote evaluation and consents to proceed with the evaluation remotely. The patient is being seen with daughter in law Recording using ambient [employer] software for draft documentation of the visit was discussed with the patient/authorized client relations representative; all questions welcomed and answered. Patient/authorized client relations representative agreed to proceed REASON FOR CONSULT: [...] Pt states she does not see a drying supervisor, she is not seeing pain management Subjective [...] Dulcolax PRN for rare instances of constipation. Dneia has a history of lung cancer with a partial lobectomy and is currently in remission. She is scheduled for a lung cancer screening but has not yet seen a drying supervisor. She uses 3 liters of oxygen and [...] and verapamil BID for blood pressure clifford gement. She also takes a diuretic for lower extremity edema, which has improved in one foot but persists in the other. She denies taking losartan. Denia has not left her house since before -, except for medical emergencies and appointments. She uses portable oxygen when leaving the house but reports anxiety about running out of oxygen. She relies on her boyfriend and grandson for support and uses a wheelchair for longer distances. She receives home care from [facility] and [facility] heart team. She manages herown medications [...] lung, unspecified site (HCC) 04/26/2003 Lung cancer CA (myocardial infarction) (HCC) 10-10 taken to [facility] heart stopped Obstructive chronic bronchitis with exacerbation [...] as directed. Dx: COPD J44.9 Nebulizer Accessories [facility] Mask and supplies as needed PULSE OXIMETER [facility] Use as directed to check oxygen saturation level ammonium lactate (AMLACTIN) 12 % lotion Apply 1 application to affected area as needed for Dry Skin. losartan (COZAAR) 50 mg tablet Take 0.5 tablets by mouth once daily. (Patient not taking: Reported on 11/23/2024) OXYGEN, HOME THERAPY, 2.5 L/min by Nasal Cannula route continuous. Use as directred Disposable Gloves (DISPOSABLE LATEX-FREE GLOVES) misc 1 [...] Paternal Grandfather REVIEW OF SYSTEMS: Modified ESAS ([place] Symptom Assessment Scale): Information Provided By: Patient [...] and coordination with other healthcare providers. - food prep worker Connor to reach out to patient regarding portable oxygen solutions. - Follow-up in 2 months to reassess condition and management. 2. Stage 3 severe COPD by GOLD classification ([facility]) (J44.9) Patient is on 3L of supplemental oxygen and experiences dyspnea primarily with exertion. Currently using a nebulizer every 6 hours and taking Spiriva and Singulair. Has stopped smoking and is using nicotine patches. - Continue current medication regimen. - food prep worker to assist with obtaining a more [...] Dr. Fall to explore referral to a touch up painter hand. 4. Generalized anxiety disorder (F41.1) Patient is currently taking Zoloft 2 tablets daily for anxiety management. - Continue current medication regimen. - Monitor for any changes in anxiety levels and adjust treatment as necessary. 5. Atrial fibrillation, unspecified type ([facility]) (I48.91) Patient has a history of atrial [...] remission. - No current follow-up with a drying supervisor; consider referral to Dr. Guzmán for ongoing monitoring. 7. Dependence on supplemental oxygen (Z99.81) Patient is dependent on 3L of supplemental oxygen and experiences anxiety about leaving the house due to fear of running out of oxygen. - food prep worker to assist with obtaining a more portable oxygen solution. - Monitor oxygen levels and adjust flow rate as necessary. 8. 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 of 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 (Z79.52) Patient [...] documentation or copy in medical record HCPOA: Shaka Gregg I spent 20 minutes in face [...] Medicine Nurse to do telephonic follow-up: No Charge Account Authorizer Services: Telephonic discussion and assessment for community resources: Has portable tanks, is scared to leave her home. Could use a system that is rechargeable such as Inogen. Pt needs to be able to go see specialists such as pulmonology and cardiology Referral to Roller Bearing Inspector: No, not at this time Recommendations will be communicated back to the consulting service by way of shared electronic medical record. Some elements copied from PCP note dated 10/17/24 , which have been updated where appropriate, and reflect current medical decision making from today, 11/23/24 Gregor Fernandez APRN.CNP November 23, 2024 9:53 AM documented in this encounterMemorial [facility]2025 NoteHNO ID: [id number] Author: GREGOR FERNANDEZ APRN.CNP Service: ? Author Type: Nurse Practitioner Type: Progress Notes Filed: 11/23/2024 10:01 Note Text: PALLIATIVE MEDICINE AT HOME INITIAL CONSULT SERVICE DATE: 11/23/2024 Referring Physician: Yoseph Fall [address] [facility] [address] Primary Physician: Yoseph Fall MD IDENTIFICATION AND INTRODUCTION: Denia Gonzalez is a 69 year old female This visit took place Virtually; I have communicated my name and active licensure. The patient's identity and physical location were verified at the time of this visit. The patient or their legal client relations representative has been informed of the risks and benefits of -- and alternatives to -- treatment through a remote evaluation and consents to proceed with the evaluation remotely. The patient is being seen with daughter in law Recording using [employer] software for draft documentation of the visit was discussed with the patient/authorized client relations representative; all questions welcomed and answered. Patient/authorized client relations representative agreed to proceed REASON FOR CONSULT: [...] Pt states she does not see a drying supervisor, she is not seeing pain management Subjective [...] screening but has not yet seen a drying supervisor. She uses 3 liters of oxygen and [...] longer distances. She receives home care from [facility] and [facility] heart team. She manages her own [...] site (HCC) 04/26/2003 Kera (more content not included)...[facility]07-30-2025 Telephone encounter Note* Telephone Encounter - Heena Howell - 11/22/2024 1:08 PM EDT VC appt made I need to make chart and mail MAILER APPRENTICE packet. Working on getting records scanned in. [facility] [id number] NoteHNO ID: [id number] Author: GREGOR FERNANDEZ APRN.CNP Service: ? Author Type: Nurse Practitioner Type: Progress Notes Filed: 11/21/2024 14:29 Note Text: PALLIATIVE MEDICINE AT HOME INITIAL CONSULT SERVICE DATE: 11/21/2024 Referring Physician: SELF Primary Physician: Yoseph Fall MD NO SHOW; [facility] History of Present illness Narrative* Gregor Fernandez APRN.CNP - 11/20/2024 7:41 PM EDT PALLIATIVE MEDICINE AT HOME INITIAL CONSULT SERVICE DATE: 11/21/2024 Referring Physician: SELF Primary Physician: Yoseph Fall MD NO SHOW; sent to medical appointment scheduler documented in this encounterMemorial [facility]2025 Telephone encounter Note * Telephone Encounter - Sukhi Marrero RN - 11/20/2024 3:14 PM EDT Rafa RN with [facility] calls to let provider know that he [...] Dr. Fall for when returns or if MAILER APPRENTICE would review. Sukhi Marrero RN [facility]07-21-2025 Telephone encounter Note* Telephone Encounter - Padmini Abbott RN - 11/13/2024 4:51 PM EDT Mike returned call and given provider's message below. Andres Abbott RN [facility]07-21-2025 Miscellaneous Notes* Telephone Encounter - Padmini [...] Telephone Encounter - Cami Louie RN - 11/13/2024 2:08 PM EDT Brenda- nurse- [facility]- phoned to check on pcp reply to message below. Brenda reports when pt was discharged from [facility] she took the prednisone dose prescribed by [facility], and therefor ran out early. Advised message [...] advise. Padmini Abbott RN documented in this encounterMemorial Health System [facility]07-[facility]-2025 Telephone encounter Note * Telephone Encounter - Naima Haines MA - 11/13/2024 3:46 PM EDT Message left for Mike to call back. Naima Haines MA [facility]07-21-2025 Telephone encounter Note* Telephone Encounter - Yoseph Fall MD - 11/13/2024 3:32 PM EDT New Rx done for 15 mg every day or every other day as needed Yoseph Fall MD [facility]07-21-2025 Telephone encounter Note* Telephone Encounter - Cami Louie RN - 11/13/2024 2:08 PM EDT Brenda- nurse- [facility]- phoned to check on pcp reply to message below. Brenda reports when pt was discharged from [facility] she took the prednisone dose prescribed by [facility], and therefor ran out early. Advised message below was sent to pcp and we will call pt with his reply. [facility]07-18-2025 Telephone encounter Note* Telephone Encounter - [...] okay now. Please advise. Padmini Abbott RN [facility]07-11-2025 Telephone encounter Note* Telephone Encounter - Yoseph Fall MD - 11/03/2024 5:04 PM EDT Noted Yoseph Fall MD [facility]07-11-2025 Miscellaneous Notes* Telephone Encounter - Yoseph Fall MD - 11/03/2024 5:04 PM EDT Noted Yoseph Fall MD * Telephone Encounter - Cami Louie, RN - 10/25/2024 1:19 PM EDT Rafa [facility] reports patient asked him to call to [...] - 10/24/2024 4:25 PM EDT Ubaldo with [facility] calls in regard to order for Palliative Care. In regards to DX: Ubaldo reports they can see pt for severe COPD. Ubaldo reports they cannot treat ptfor back pain unless it is in regards to cancer or something like that. Pt would need to see a painspecialist for that. Please review and advise. Jennifer Hennessy LPN documented in this encounterMemorial Health [facility]07-[facility]-2025 Telephone encounter Note * Telephone Encounter - Nelson Robert APRN.CNP - 11/01/2024 10:31 AM EDT Noted for [facility]. Rx sent. The following approved medication requests have been transmitted electronically. Requested Prescriptions Pending Prescriptions Disp Refills nicotine (NICODERM) 14 mg/24 hr 28 patch 5 Sig: apply one patch transdermally as directed every 24 hours Nelson Robert APRN.CNP [facility]07-09-2025 Miscellaneous Notes* Telephone Encounter - Nelson Robert APRN.CNP - 11/01/2024 10:31 AM EDT Noted for [facility]. Rx sent. The following approved medication requests have been transmitted electronically. Requested Prescriptions Pending Prescriptions Disp Refills nicotine (NICODERM) 14 mg/24 hr 28 patch 5 Sig: apply one patch transdermally as directed every 24 hours Nelson Robert APRN.CNP * Telephone Encounter - Meenu Gurrola RN - 10/31/2024 3:47 PM EDT Fred nurse with [facility] Home Health calling in plan of care as he did nursing evaluation on patient today. Nursing will continue to see her 1x/week x 3 weeks. He states pt is also requesting a refill on her Nicotine Patch that the hospital prescribed for her. Send to [facility]. Pended. Next appt 01/[address] Fall. documented in this encounterMemorial Health [facility]07-[facility]-2025 Telephone encounter Note * Telephone Encounter - Meenu Gurrola RN - 10/31/2024 3:47 PM EDT Fred nurse with [facility] calling in plan of care as he did nursing evaluation on patient today. Nursing will continue to see her 1x/week x 3 weeks. He states pt is also requesting a refill on her Nicotine Patch that the hospital prescribed for her. Send to [facility]. Pended. Next appt 01/[address] Fall. [facility]07-02-2025 Telephone encounter Note* Telephone Encounter - Cami Louie, RN - 10/25/2024 1:19 PM EDT Rafa [facility] reports patient asked him to call to [...] Rafa agreeable and will let pt know. [facility]07-01-2025 Telephone encounter Note* Telephone Encounter - Lindsay Rios RN - 10/24/2024 5:25 PM EDT Rafa with [facility] is calling due to pharmacy unable to fill levaquin due to level 1 severe reaction with the multaq patient takes. When this happened when patient was d/c from [facility] the antibitoc was change to cefdinir 300mg. Rafa needs called back with information along with patient and a different medication sent to pharmacy. [facility]07-01-2025 Miscellaneous Notes* Telephone Encounter - Lindsay Rios, KAREN - 10/24/2024 5:25 PM EDT Rafa with [facility] is calling due to pharmacy unable to fill levaquin due to level 1 severe reaction with the multaq patient takes. When this happened when patient was d/c from [facility] the antibitoc was change to cefdinir [...] swelling. Please call patient back with reply. [phone] Padmini Abbott RN documented in this encounterMemorial Health [facility]07-[facility]-2025 Telephone encounter Note * Telephone Encounter - Clarisse Anguiano RN - 10/24/2024 5:00 PM EDT Pt called and is notified of providers message and instructions. Pt voices understanding. Clarisse Anguiano, RN [facility]07-01-2025 Telephone encounter Note* Telephone Encounter - Yoseph Fall MD - 10/24/2024 4:55 PM EDT OK to just see her for severe COPD Yoseph Fall MD [facility]07-01-2025 Telephone encounter Note* Telephone Encounter - Yoseph Fall MD - 10/24/2024 4:55 PM EDT OK for another 7 days of Levaquin Yoseph Fall MD [facility]07-01-2025 Telephone encounter Note* Telephone Encounter - Jennifer Hennessy LPN - 10/24/2024 4:25 PM EDT Ubaldo with [facility] calls in regard to order for Palliative Care. In regards to DX: Ubaldo reports they can see pt for severe COPD. Ubaldo reports they cannot treat ptfor back pain unless it is in regards to cancer or something like that. Pt would need to see a painspecialist for that. Please review and advise. Jennifer Hennessy LPN [facility]07-01-2025 Telephone encounter Note* Telephone Encounter - [...] swelling. Please call patient back with reply. [phone] Padmini Abbott RN [facility]07-01-2025 Telephone encounter Note* Telephone Encounter - [...] and chronic pain Virtual Visit Clinic location: [facility]- no safety concerns identified by nurse. Richard Broussard RN October 24, 2024 [facility]07-01-2025 Miscellaneous Notes* Telephone Encounter - Richard [...] [facility] chronic [facility]- no safety concerns identified by nurse. Richard Broussard RN October 24, 2024 documented in this encounterMemorial Health [facility]06-30-2025 Telephone encounter Note * Telephone Encounter - Naima Haines MA - 10/23/2024 3:42 PM EDT Rafa notified. Referral faxed, demo, insurance card, OV note, med list [facility] at [phone] with Palliative Care specified on fax. Naima Haines MA [facility]06-30-2025 Miscellaneous Notes* Telephone Encounter - Naima Haines MA - 10/23/2024 3:42 PM EDT Rafa notified. Referral faxed, demo, insurance card, OV note, med list faxed to [facility] at [phone] with Palliative Care specified on fax. Naima Haines MA * Telephone Encounter - Yoseph Fall MD - 10/23/2024 2:46 PM EDT OK for Palliative Care consult as requested Yoseph Fall MD * Telephone Encounter - Clarisse Anguiano RN - 10/23/2024 1:33 PM EDT Rafa [facility] called in about Pt and states je [...] chronic generalized pain and is on the [place] for it. He states the Pt would like a Palliative care referral for pain and breathing. I told him I don't think they do Palliative care for pain, but for breathing they do. Clarisse Anguiano RN documented in this encounterMemorial Health [facility]06-[facility]-2025 Telephone encounter Note * Telephone Encounter - Yoseph Fall MD - 10/23/2024 2:46 PM EDT OK for Palliative Care consult as requested Yoseph Fall MD [facility]06-30-2025 Telephone encounter Note* Telephone Encounter - Clarisse Anguiano RN - 10/23/2024 1:33 PM EDT Rafa [facility] called in about Pt and states je [...] chronic generalized pain and is on the [place] for it. He states the Pt would like a Palliative care referral for pain and breathing. I told him I don't think they do Palliative care for pain, but for breathing they do. Clarisse Anguiano, RN [facility]06-27-2025 Telephone encounter Note* Telephone Encounter - Padmini Abbott RN - 10/20/2024 4:43 PM EDT Daughter returned call and given provider's message below. Padmini Abbott RN [facility]06-27-2025 Miscellaneous Notes* Telephone Encounter - Padmini Abbott RN - 10/20/2024 4:43 PM EDT Daughter returned call and given provider's message below. Padmini Abbott RN * Telephone Encounter - Naima Haines MA - 10/20/2024 4:27 PM EDT Message left for Symontee to call back. Naima Haines MA * Telephone Encounter - Yoseph Fall MD - 10/20/2024 4:20 PM EDT OK to start Lasix 20 mg daily as ordered to help with the swelling Yoseph Fall MD * Telephone Encounter - Padmini Abbott RN - 10/20/2024 3:41 PM EDT Patient's daughter Sinan Carlos calling in, with patient speaking in the background. Reports both of patient's feet have been very swollen for about 3 days now and asking if Dr. Fall will order pt a water pill. Swelling goes up into each ankle area. She has tried contacting [facility] over the past couple of [...] . Padmini Abbott RN documented in this encounterMemorial Health [facility]06-27-2025 Telephone encounter Note * Telephone Encounter - Naima Haines MA - 10/20/2024 4:27 PM EDT Message left for Sinan to call back. Naima Haines MA [facility]06-27-2025 Telephone encounter Note* Telephone Encounter - Yoseph Fall MD - 10/20/2024 4:20 PM EDT OK to start Lasix 20 mg daily as ordered to help with the swelling Yoseph Fall MD [facility]06-27-2025 Telephone encounter Note* Telephone Encounter - [...] daughter with reply, . Padmini Abbott RN [facility]06-27-2025 Telephone encounter Note* Telephone Encounter - Yoseph Fall MD - 10/20/2024 9:25 AM EDT Noted Palliative Care consult ordered Yoseph Fall MD [facility]06-27-2025 Miscellaneous Notes* Telephone Encounter - Yoseph Fall MD - 10/20/2024 9:25 AM EDT Noted Palliative Care consult ordered Yoseph Fall MD * Telephone Encounter - Cami Louie RN - 10/19/2024 12:56 PM EDT Monae- nurse- [facility]- reports she saw patient today. Noted pt [...] referral to palliative care. documented in this encounterMemorial Health System [facility]06-27-2025 Telephone encounter Note * Telephone Encounter - Yoseph Fall MD - 10/20/2024 9:14 AM EDT Noted and agree Yoseph Fall MD [facility]06-27-2025 Miscellaneous Notes* Telephone Encounter - Yoseph Fall MD - 10/20/2024 9:14 AM EDT Noted and agree Yoseph Fall MD * Telephone Encounter - Judy Bliss RN - 10/19/2024 1:05 PM EDT Mercedez ZHENG calling from [facility] to report plan of care for patient [...] RN - 10/18/2024 10:43 AM EDT Vilma NICHOLSON calling from [facility] to report plan of care for [...] Advise, Judy Bliss RN documented in this encounterMemorial Health [facility]06-26-2025 Telephone encounter Note * Telephone Encounter - Judy Bliss RN - 10/19/2024 1:05 PM EDT Mercedez PT calling from [facility] to report plan of care for patient and physical therapy will visit patient 1 times a week for first week, 2 times a week for 4 weeks, and 1 time a week for 3 weeks. Physical therapy will work with patient on strength, gait transfers, and balance. No call back needed unless Questions Judy Bliss RN [facility]06-26-2025 Telephone encounter Note* Telephone Encounter - Cami Louie RN - 10/19/2024 12:56 PM EDT Monae- nurse- [facility]- reports she saw patient today. Noted pt [...] pcp to place referral to palliative care. [facility]06-25-2025 Telephone encounter Note* Telephone Encounter - Judy Bliss RN - 10/18/2024 10:43 AM EDT Vilma OT calling from [facility] to report plan of care for [...] Please review and Advise, Judy Bliss RN [facility]06-24-2025 History of Present illness Narrative* Yoseph [...] visit. Either the patient or their legal client relations representative has been informed of the risks and benefits of -- and alternatives to -- treatment through a remote evaluation andconsents to proceed with the evaluation remotely. Quit smoking 45 days ago. Is wearing the patch. States for the most part she feels better and thinks her breathing is some better. Has some days when she craves the cigarettes. Pt admitted to [facility] on 09/29/24 if SOB, arrived to ER [...] in 1 month,and Lindsay Whitehead CNP with [facility] in 1 week. Is using 3 L continuous oxygen. Anila getting scheduled for TAVR Is going to be having HH PT come out 3 x a week. She has more pain due to moving around more. Has had nurses out a few times to check her vitals. Is getting set up with Pain Management through Hospice. Below copied from [facility]: History of Present Illness Chief Complaint: Shortness [...] 180 mg twice daily. Discussed with the cat scan technologist Dr. Hopkins today. Discharge on verapamil and [...] Past Histories independently gathered by the clinical call center support consultant and the remaining scribed note accurately describes my personal service to the patient. Yoseph Fall MD The documentation for this note was completed by Naima Haines MA acting as scribe for Yoseph Fall MD. October 17, 2024 2:34 PM. Naima Haines MA documented in this encounterMemorial [facility]06-[facility]25 NoteHNO ID: [id number] Author: YOSEPH FALL MD Service: ? Author [...] visit. Either the patient or their legal client relations representative has been informed of the [...] she craves the cigarettes. Pt admitted to [facility] on 09/29/24 if SOB, arrived to ER [...] Cardio in 1 month, and Lindsay Whitehead MARINE INSURANCE CLAIM EXAMINER with [facility] in 1 week. Is using 3 L continuous oxygen. Will be getting scheduled for TAVR Is going to be having HH PT come out 3 x a week. She has more pain due to moving around more. Has had nurses out a few times to check her vitals. Is getting set up with Pain Management through Hospice. Below copied from [facility]: History of Present Illness Chief Complaint: Shortness of Breath Informant: patient and EMS Narrative Narrative: Patient is a 69-year-old female with past medical history of hypertension and COPD who wears 2 to 3 L nasal cannula oxygen /. She states that she has a home [...] to maintain sats >90 (more content not included)...[facility]06-20-2025 Telephone encounter Note* Telephone Encounter - Naima Haines MA - 10/13/2024 4:52 PM EDT Edda notified. Naima Haines MA [facility]06-20-2025 Miscellaneous Notes* Telephone Encounter - Naima Haines MA - 10/13/2024 4:52 PM EDT Edda notified. Naima Haines MA * Telephone Encounter - Yoseph Fall MD - 10/13/2024 4:48 PM EDT OK for delay of care order as requested Yoseph Fall MD * Telephone Encounter - Judy Bliss RN - 10/13/2024 4:38 PM EDT Edda from [facility] calls and states that they were supposed to do a PT evaluation this week, however, they are still waiting on insurance. Edda asking for delay care order. Please review and advise, Judy Bliss RN documented in this encounterMemorial Health [facility]06-20-2025 Telephone encounter Note * Telephone Encounter - Yoseph Fall MD - 10/13/2024 4:48 PM EDT OK for delay of care order as requested Yoseph Fall MD [facility]06-20-2025 Telephone encounter Note* Telephone Encounter - Judy Bliss RN - 10/13/2024 4:38 PM EDT Edda from [facility] calls and states that they were supposed to do a PT evaluation this week, however, they are still waiting on insurance. Edda asking for delay care order. Please review and advise, Judy Bliss RN [facility]06-19-2025 Telephone encounter Note* Telephone Encounter - Naima Haines MA - 10/12/2024 11:55 AM EDT Tried to reach pt, VM full, unable to leave message. Naima Haines MA [facility]06-19-2025 Miscellaneous Notes* Telephone Encounter - Naima [...] hydrocodone was given to her 3 x/daily. Franklin refilled today #30 to take 1 pill BID. Do you want to refill for her to increase the dosage to 3 x a day or do you want to discuss furtherat pt appt on 10/17/24 Naiam Haines MA * Telephone Encounter - Orly [...] 12, 2024 9:47 AM documented in this encounterMemorial [facility]06-19-2025 Telephone encounter Note * Telephone Encounter - Yoseph Fall MD - 10/12/2024 11:46 AM EDT She may go back to this dose of prednisone; will review at her appt Yoseph Fall MD [facility]06-19-2025 Telephone encounter Note* Telephone Encounter - Naima Haines MA - 10/12/2024 10:11 AM EDT Per pt Patient states that in the hospital she was given 40 mg of the prednisone for 4 days. Also the hydrocodone was given to her 3 x/daily. Franklin refilled today #30 to take 1 pill BID. Do you want to refill for her to increase the dosage to 3 x a day or do you want to discuss furtherat pt appt on 10/17/24 Naima Haines MA [facility]06-19-2025 Telephone encounter Note* Telephone Encounter - [...] Orly Stacy October 12, 2024 9:47 AM [facility]06-19-2025 Telephone encounter Note* Telephone Encounter - Yoseph Fall MD - 10/12/2024 9:35 AM EDT OK to refill as ordered Yoseph Fall MD [facility]06-19-2025 Miscellaneous Notes* Telephone Encounter - Yoseph [...] 11, 2024 4:00 PM documented in this encounterMemorial Health [facility]06-18-2025 Telephone encounter Note * Telephone Encounter [...] Bliss RN October 11, 2024 4:00 PM [facility]06-17-2025 Telephone encounter Note* Telephone Encounter - Naima Haines MA - 10/10/2024 4:46 PM EDT Detailed message left on Rafa's identified VM. Naima Haines MA [facility]06-17-2025 Miscellaneous Notes* Telephone Encounter - Naima Haines MA - 10/10/2024 4:46 PM EDT Detailed message left on Rafa's identified VM. Naima Haines MA * Telephone Encounter - Yoseph Fall MD - 10/10/2024 4:41 PM EDT Noted OK to continue Coreg and inhalers; will monitor Yoseph Fall MD * Telephone Encounter - Cami Louie RN - 10/10/2024 4:30 PM EDT [facility] [...] with pcp on 10/17/24 documented in this encounterMemorial Health [facility]06-17-2025 Telephone encounter Note * Telephone Encounter - Yoseph Fall MD - 10/10/2024 4:41 PM EDT Noted OK to continue Coreg and inhalers; will monitor Yoseph Fall MD [facility]06-17-2025 Telephone encounter Note* Telephone Encounter - Cami Louie RN - 10/10/2024 4:30 PM EDT [facility] [...] for hosp f/u with pcp on 10/17/24 [facility]06-17-2025 NoteHNO ID: [id number] Author: NAIMA HAINES MA Service: ? Author Type: Coagulating Bath Operator Type: Progress Notes Filed: 10/12/2024 09:36 Note Text: TRANSITION CARE MANAGEMENT (TCM) INITIAL CONTACT Coagulating Bath Operator Outreach Provider Action/FYI: 14 Day TCM Started [...] below 50,000 or Hemoglobin drops below 8. [facility] addendum to discharge summary stating that pharmacy raised concern about interaction between the Levaquin and Multaq. Levofloxacin was changed to Cefdinir. Follow up with Pulm, Dr. Guzmán in 1 month. Follow up with Cardio, Dr. Madrid in 1 month Follow up with Cardio MAILER APPRENTICE, Lindsay Whitehead in 1 week 10/10/24-Message left [...] of Discharge 10/09/2024 SUMMARY: -Pt discharged from [facility] on 10/09/24. -Admitted for: 1) Aortic Valve Stenosis 2) A-fib Below copied from [facility]: History of Present Illness Chief Complaint: Shortness [...] for TAVR on outp (more content not included)...[facility]06-17-2025 Telephone encounter Note* Telephone Encounter - Naima Haines MA - 10/10/2024 8:24 AM EDT TCM note started. Naima Haines MA [facility]06-17-2025 History of Present illness Narrative* Naima Haines MA - 10/10/2024 8:24 AM EDT TRANSITION CARE MANAGEMENT (TCM) INITIAL CONTACT Coagulating Bath Operator Outreach Provider Action/FYI: 14 Day TCM Started on Nicotine patches 14 mg daily, Verapamil changed from 240 mg to 180 mg 1 pill BID, Impleo443 mg 1 pill BID, Coreg 6.25 mg 1 Pill BID, Levofloxacin 500 mg 1 pill daily x 6 days and Eliquis 5 mg 1 pill BID (discontinue if platelet count drop below 50,000 or Hemoglobin drops below 8. [facility] addendum to discharge summary stating that pharmacy raised concern about interaction between the Levaquin and Multaq. Levofloxacin was changed to Cefdinir. Follow up with PulmDr. Guzmán in 1 month. Follow up with Cardio, Dr. Madrid in 1 month Follow up with Cardio MAILER APPRENTICE, Lindsay Whitehead in 1 week 10/10/24-Message left [...] of Discharge 10/09/2024 SUMMARY: -Pt discharged from [facility] on 10/09/24. -Admitted for: 1) Aortic Valve Stenosis 2) A-fib Below copied from [facility]: History of Present Illness Chief Complaint: Shortness [...] 180 mg twice daily. Discussed with the cat scan technologist Dr. Hopkins today. Discharge on verapamil and [...] below 50,000 or Hemoglobin drops below 8. [facility] addendum to discharge summary stating that pharmacy raised concern about interaction between the Levaquin and Multaq. Levofloxacin was changed to Cefdinir. Were you told to hold any medications? No Were any of your medications discontinued? Yes Verapamil 240 mg [facility] addendum to discharge summary stating that pharmacy [...] for provider to review documented in this encounterMemorial [facility]06-17-2025 Miscellaneous Notes* Telephone Encounter - Naima [...] PM EDT They may wait until [facility] can get the Multaq tomorrow Yoseph Fall MD * Telephone Encounter - Clarisse Anguiano RN - 10/09/2024 7:20 PM EDT Pt's significant other Mike called in and reports Pt was in the hospital for 11 days and released about an hour and a half ago. He states [facility] in [place] doesn't have the Multaq in stock, but [...] them. Please call and advise. Clarisse Anguiano, KAREN documented in this encounterMemorial Health [facility]06-17-2025 NotePatient Outreach (FAMPWS) DENIA GONZALEZ ([id number]) 1955 F Date Time Provider Department 10/10/24 NAIMA HAINES During your visit today, we recorded the following information about you: Naima Haines MA 10/12/2024 9:36 AM Signed TRANSITION CARE MANAGEMENT (TCM) INITIAL CONTACT Coagulating Bath Operator Outreach Provider Action/FYI: 14 Day TCM Started [...] below 50,000 or Hemoglobin drops below 8. [facility] addendum to discharge summary stating that pharmacy raised concern about interaction between the Levaquin and Multaq. Levofloxacin was changed to Cefdinir. Follow up with Pulm, Dr. Guzmán in 1 month. Follow up with Cardio, Dr. Madrid in 1 month Follow up with Cardio MAILER APPRENTICE, Lindsay Whitehead in 1 week 10/10/24-Message left [...] of Discharge 10/09/2024 SUMMARY: -Pt discharged from [facility] on 10/09/24. -Admitted for: 1) Aortic Valve Stenosis 2) A-fib Below copied from [facility]: History of Present Illness Chief Complaint: Shortness [...] COVID influenza and RSV testing [facility] negative[facility] [...] and mean peak gradi (more content not included)...[facility]06-16-2025 Telephone encounter Note* Telephone Encounter - Clarisse Anguiano RN - 10/09/2024 7:46 PM EDT Pt's significant other Mike called and is notified of providers message and instructions. He voices understanding. Pt was discharged today you can't do TCM on same day as discharge, you have to waituntil at least 1 day after D/C. Clarisse Anguiano RN [facility]06-16-2025 Telephone encounter Note* Telephone Encounter - Naima Haines MA - 10/09/2024 7:35 PM EDT Message left for pt or significant other Mike to call back. Please start a TCM encounter/note when pt calls back. Has appt for hospital d/c on 10/17/24. Naima Haines MA [facility]06-16-2025 Telephone encounter Note* Telephone Encounter - Yoseph Fall MD - 10/09/2024 7:33 PM EDT They may wait until [facility] can get the Multaq tomorrow Yoseph Fall MD [facility]06-16-2025 Telephone encounter Note* Telephone Encounter - Clarisse Anguiano RN - 10/09/2024 7:20 PM EDT Pt's significant other Mike called in and reports Pt was in the hospital for 11 days and released about an hour and a half ago. He states [facility] in [place] doesn't have the Multaq in stock, but [...] Please call and advise. Clarisse Anguiano, RN [facility]06-16-2025 Discharge summary [facility] Medical Records Department [address] [place] [address] Discharge Summary 10/09/24 1558 MR#: [id number] Acct: [id number] Name: DENIA GONZALEZ Rep #:[id number] : 1955 69 From: Alessandro Liu PCP: Dr. Yoseph Fall MD Status:AD M IN Location: [facility] [id number] Providers Date of Admission: 09/29/24 Date of Discharge: 10/09/24 Primary Care Physician: Dr. Yoseph Fall MD Consultations 10/02/24 09:21 Consult: Cardiology Routine Consulting Provider: Junito Madrid Reason for Consult: New afib RVR EMERGENT Consult: No MD Notified: Yes Date Notified: 10/02/24 Time Notified: 09:25 Method of Notification: Text Reason For Visit: [...] mg twice daily. * Discussed with the cat scan technologist Dr. Hopkins today. Discharge on verapamil and [...] 86.9 H, Lymph % (Auto) 6.9 L, Mineral %(Auto) 5.3, Eos % (Auto) 0.0, Baso [...] Health Service Charges/Coding Visit Charges Inpatient E&M: 42544 Disch Hosp >30min 10/09/24 1606 Cosigner Signature (if applicable): CC: Dr. Yoseph Fall MD; Dr. Alessandro Palma MD~ Signed [facility]06-16-2025 Discharge summary [facility] Medical Records Department [address] [place] [address] Instructions for Home/Discharge Instructions 10/09/24 1542 MR#: [id number] Acct: [id number] Name: DENIA GONZALEZ Rep #:[id number] : 1955 69 From: Alessandro Liu PCP: [...] can be placed): Home Health Service 10/09/24 155Rosa Palma MD CC: Dr. Dionne Porter MD; Dr. Yoseph Fall MD; Dr. Junito Madrid MD; Dr. Lynne Schafer MD; Dr. Jan Bolanos MD ~ Signed [facility]06-16-2025 [facility]06-16-2025 Telephone encounter Note* Telephone Encounter - Naima Haines MA - 10/09/2024 3:56 PM EDT Detailed message left on below's identified and confidential VM. Naima Haines MA [facility]06-16-2025 Miscellaneous Notes* Telephone Encounter - Naima [...] - 10/09/2024 3:09 PM EDT Iman with [facility] HH calls to ask if provider will follow their HH orders for SN, PT, OT. Patient discharging home today from [facility] after being treated for COPD exacerbation and new onset A-fib. Please call Iman back at [phone]. Sukhi Marrero, KAREN documented in this encounterMemorial Health [facility]06-16-2025 Telephone encounter Note * Telephone Encounter - Yoseph Fall MD - 10/09/2024 3:54 PM EDT Yes, I will follow their HH orders for SN, PT, OT Yoseph Fall MD [facility]06-16-2025 Telephone encounter Note* Telephone Encounter - Sukhi Marrero RN - 10/09/2024 3:09 PM EDT Iman with [facility] HH calls to ask if provider will follow their HH orders for SN, PT, OT. Patient discharging home today from [facility] after being treated for COPD exacerbation and new onset A-fib. Please call Iman back at [phone]. Sukhi Marrero RN [facility]06-16-2025 Telephone encounter Note* Telephone Encounter - Yoseph Fall MD - 10/09/2024 2:09 PM EDT Noted Yoseph Fall MD [facility]06-16-2025 Miscellaneous Notes* Telephone Encounter - Yoseph Fall MD - 10/09/2024 2:09 PM EDT Noted Yoseph Fall MD * Telephone Encounter - Padmini Abbott RN - 10/09/2024 8:39 AM EDT Palma Anguiano with [facility] calling to update provider that patient has been at [facility] since 09/29/24. Padmini Abbott RN documented in this encounterMemorial Health [facility]06-16-2025 Telephone encounter Note * Telephone Encounter - Padmini Abbott RN - 10/09/2024 8:39 AM EDT Palma Anguiano with [facility] calling to update provider that patient has been at [facility] since 09/29/24. Padmini Abbott RN [facility]06-15-2025 Progress note Author Lynne Schafer [facility] Note Date/Time October 08, 2024 3:37 pm [facility] Medical Records Department [address] [place] [address] Progress Note 10/08/24 1100 MR#: [id number] Acct: [id number] Name: DENIA GONZALEZ Rep #:[id number] : 1955 69 From: Lynne Schafer MD PCP: Dr. Yoseph Fall MD Status:AD M IN Location: [place] [address] Subjective Subjective Patient seen and examined. Patient [...] 89.1 H, Lymph % (Auto) 5.1 L, Mineral %(Auto) 4.7, Eos % (Auto) 0.0, Baso [...] PO eliquis. Charges/Coding Visit Charges Inpatient E&M: 77062 Subs Hosp L3 10/08/24 1537 <Electronically signed by Lynne Schafer MD> Lynne Schafer MD Cosigner Signature (if applicable): CC: ~ Signed [facility] Work Phone: 1(254) 736-711306-15-2025 Progress note Author Michael Plasencia [facility] Note Date/Time October 08, 2024 2:15 pm [facility] Medical Records Department [address] [place] [address] Progress Note - Cardiology 10/08/24 1058 MR#: [id number] Acct: [id number] Name: DENIA GONZALEZ Rep #:[id number] : 1955 69 From: Michael Plasencia MD PCP: Dr. Yoseph Fall MD Status:AD M IN Location: [place] [address] Objective Data an episode of tachycardia today [...] 89.1 H, Lymph % (Auto) 5.1 L, Mineral %(Auto) 4.7, Eos % (Auto) 0.0, Baso [...] 89.1 H, Lymph % (Auto) 5.1 L, Mineral % (Auto) 4.7, Eos % (Auto) 0.0, [...] 10/08/24 at 1415 Visit Charges Inpatient E&M: 89348 Subs Hosp L3 10/08/24 1415<Electronically signed by Michael Plasencia MD> Cosigner Signature (if applicable): cc: ~* Signed [facility] Work Phone: 1(301) 794-349906-15-2025 Progress note [facility] Medical Records Department [address] [place] [address] Progress Note 10/08/24 1100 MR#: [id number] Acct: [id number] Name: DENIA GONZALEZ Rep #:[id number] : 1955 69 From: Lynne Schafer MD PCP: Dr. Yoseph Fall MD Status:AD M IN Location: [place] [address]- Subjective Subjective Patient seen and examined. Patient went into A-fib with RVR today with a heart rate going up to lbn173j and 190s. She did complain of palpitations [...] 89.1 H, Lymph % (Auto) 5.1 L, Mineral %(Auto) 4.7, Eos % (Auto) 0.0, Baso [...] PO eliquis. Charges/Coding Visit Charges Inpatient E&M: 77807 [facility] Hosp 10/08/24 1537 Lynne Schafer MD Cosigner Signature (if applicable): CC: ~ Signed [facility]06-15-2025 Progress note [facility] Medical Records Department [address] [place] [address] Progress Note - Cardiology 10/08/24 1058 MR#: [id number] Acct: [id number] Name: DENIA GONZALEZ Rep #:[id number] : 1955 69 From: Michael Plasencia MD PCP: Dr. Yoseph Fall MD Status:AD M IN Location: [place] [address] Objective Data an episode of tachycardia today [...] 89.1 H, Lymph % (Auto) 5.1 L, Mineral %(Auto) 4.7, Eos % (Auto) 0.0, Baso [...] 89.1 H, Lymph % (Auto) 5.1 L, Mineral % (Auto) 4.7, Eos % (Auto) 0.0, [...] 10/08/24 at 1415 Visit Charges Inpatient E&M: 73937 Subs Hosp L3 10/08/24 1415 Cosigner Signature (if applicable): cc: ~* Signed [facility]06-14-2025 Progress note Author Lynne Schafer [facility] Note Date/Time October 07, 2024 6:29 pm [facility] Medical Records Department [address] [place] [address] Progress Note 10/07/24 1413 MR#: [id number] Acct: [id number] Name: DENIA GONZALEZ Rep #:[id number] : 1955 69 From: Lynne Schafer MD PCP: Dr. Yoseph Fall MD Status:AD M IN Location: [place] [address] Subjective Subjective Patient seen and examined. She [...] 89.2 H, Lymph % (Auto) 4.3 L, Mineral %(Auto) 5.4, Eos % (Auto) 0.0, Baso [...] by tomorrow. Charges/Coding Visit Charges Inpatient E&M: 64577 Subs Hosp L2 10/07/24 1829 <Electronically signed by Lynne Schafer MD> Lynne Schafer MD Cosigner Signature (if applicable): CC: ~ Signed [facility] Work Phone: 1(305) 586-781706-14-2025 Progress note [facility] Medical Records Department [address] [place] [address] Progress Note 10/07/24 1413 MR#: [id number] Acct: [id number] Name: DENIA GONZALEZ Rep #:[id number] : 1955 69 From: Lynne Schafer MD PCP: Dr. Yoseph Fall MD Status:AD M IN Location: [place] [address] Subjective Subjective Patient seen and examined. She [...] 89.2 H, Lymph % (Auto) 4.3 L, Mineral %(Auto) 5.4, Eos % (Auto) 0.0, Baso [...] by tomorrow. Charges/Coding Visit Charges Inpatient E&M: 79926 Subs Hosp L2 10/07/24 5174 Lynne Schafer MD Cosigner Signature (if applicable): CC: ~ Signed [facility]06-14-2025 Progress note Author Michael Plasencia [facility] Note Date/Time October 07, 2024 3:50 pm [facility] Medical Records Department [address] [place] [address] Progress Note - Cardiology 10/07/24 1059 MR#: [id number] Acct: [id number] Name: DENIA GONZALEZ Rep #:[id number] : 1955 69 From: Michael Plasencia MD PCP: Dr. Yoseph Fall MD Status:AD M IN Location: [place] [address] Objective Data No further episodes overnight Vital [...] 89.2 H, Lymph % (Auto) 4.3 L, Mineral %(Auto) 5.4, Eos % (Auto) 0.0, Baso [...] 89.2 H, Lymph % (Auto) 4.3 L, Mineral % (Auto) 5.4, Eos % (Auto) 0.0, [...] be atrial flutter she will need terminal operations supervisor anticoagulation for stroke prevention 10/07/24 1338 <Electronically signed by Michael Plasencia MD> Cosigner Signature (if applicable): CC: ~ Signed ADDENDUM by Dr. Michael Plasencia MD on 10/07/24 at 1550 Visit Charges Inpatient E&M: 55078 Subs Hosp L3 10/07/24 1550<Electronically signed by Michael Plasencia MD> Cosigner Signature (if applicable): cc: ~* Signed [facility] Work Phone: 1(547) 156-817806-14-2025 Progress note [facility] Medical Records Department [address] [place] [address] Progress Note - Cardiology 10/07/24 1059 MR#: [id number] Acct: [id number] Name: DENIA GONZALEZ Rep #:[id number] : 1955 69 From: Michael Plasencia MD PCP: Dr. Yoseph Fall MD Status:AD M IN Location: [place] [address] Objective Data No further episodes overnight Vital [...] 89.2 H, Lymph % (Auto) 4.3 L, Mineral %(Auto) 5.4, Eos % (Auto) 0.0, Baso [...] 89.2 H, Lymph % (Auto) 4.3 L, Mineral % (Auto) 5.4, Eos % (Auto) 0.0, [...] to be atrial flutter she will need detention anticoagulation for stroke prevention 10/07/24 1338 Cosigner Signature (if applicable): CC: ~ Signed ADDENDUM by Dr. Michael Plasencia MD on 10/07/24 at 1550 Visit Charges Inpatient E&M: 54602 [facility] Hosp 10/07/24 1550 Cosigner Signature (if applicable): cc: ~* Signed [facility]06-13-2025 Progress note Author Michael lPasencia [facility] Note Date/Time October 06, 2024 9:11 pm [facility] Medical Records Department [address] [place] [address] Progress Note - Cardiology 10/06/24 1422 MR#: [id number] Acct: [id number] Name: DENIA GONZALEZ Rep #:[id number] : 1955 69 From: Michael Plasencia MD PCP: Dr. Yoseph Fall MD Status:AD M IN Location: [place] [address] Subjective Subjective Reports palpitations with these episodes. [...] 90.6 H, Lymph % (Auto) 4.6 L, Mineral %(Auto) 3.9, Eos % (Auto) 0.0, Baso [...] 90.6 H, Lymph % (Auto) 4.6 L, Mineral % (Auto) 3.9, Eos % (Auto) 0.0, [...] stroke evaluation. Charges/Coding Visit Charges Inpatient E&M: 80392 Subs Hosp L3 10/06/242108 <Electronically signed by Michael Plasencia MD> Cosigner Signature (if applicable): CC: ~ Signed ADDENDUM by Dr. Michael Plasencia MD on 10/06/24 at 2111 Addendum If it turns out to be atrial flutter she will need anticoagulation for stroke prevention 10/06/242110<Electronically signed by Michael Plasencia MD> Cosigner Signature (if applicable): cc: ~* Signed [facility] Work Phone: 1(499) 210-790906-13-2025 Progress note [facility] Medical Records Department [address] [place] [address] Progress Note - Cardiology 10/06/24 1422 MR#: [id number] Acct: [id number] Name: DENIA GONZALEZ Rep #:[id number] : 1955 69 From: Michael Plasencia MD PCP: Dr. Yoseph Fall MD Status:AD M IN Location: [place] [address] Subjective Subjective Reports palpitations with these episodes. [...] 90.6 H, Lymph % (Auto) 4.6 L, Mineral %(Auto) 3.9, Eos % (Auto) 0.0, Baso [...] 90.6 H, Lymph % (Auto) 4.6 L, Mineral % (Auto) 3.9, Eos % (Auto) 0.0, [...] stroke evaluation. Charges/Coding Visit Charges Inpatient E&M: 23648 [facility] Hosp 10/06/242108 Cosigner Signature (if applicable): CC: ~ Signed ADDENDUM by Dr. Michael Plasencia MD on 10/06/24 at 211 Addendum If it turns out to be atrial flutter she will need anticoagulation for stroke prevention 10/06/242110 Cosigner Signature (if applicable): cc: ~* Signed [facility]06-13-2025 Progress note Author Lnyne Schafer [facility] Note Date/Time October 06, 2024 5:23 pm [facility] Medical Records Department [address] [place] [address] Progress Note 10/06/24 1720 MR#: [id number] Acct: [id number] Name: DENIA GONZALEZ Rep #:[id number] : 1955 69 From: Lynne Schafer MD PCP: Dr. Yoseph Fall MD Status:AD M IN Location: [place] [address] Subjective Subjective Patient seen and examined today. [...] 90.6 H, Lymph % (Auto) 4.6 L, Mineral %(Auto) 3.9, Eos % (Auto) 0.0, Baso [...] therapeutic Lovenox Charges/Coding Visit Charges Inpatient E&M: 75207 Subs Hosp L2 10/06/24 1723 <Electronically signed by Lynne Schafer MD> Lynne Schafer MD Cosigner Signature (if applicable): CC: ~ Signed [facility] Work Phone: 1(118) 124-299006-13-2025 Progress note [facility] Medical Records Department [address] [place] [address] Progress Note 10/06/24 1720 MR#: [id number] Acct: [id number] Name: DENIA GONZALEZ Rep #:[id number] : 1955 69 From: Lynne Schafer MD PCP: Dr. Yoseph Fall MD Status:AD M IN Location: [place] [address] Subjective Subjective Patient seen and examined today. [...] She [facility]. Objective Data Objective Data Vital Signs: Vital [...] 90.6 H, Lymph % (Auto) 4.6 L, Mineral %(Auto) 3.9, Eos % (Auto) 0.0, Baso [...] therapeutic Lovenox Charges/Coding Visit Charges Inpatient E&M: 12650 Subs Hosp L2 10/06/24 1723 Lynne Schafer MD Cosigner Signature (if applicable): CC: ~ Signed [facility]06-12-2025 Progress note [facility]ne [facility] Note Date/Time October 05, 2024 6:28 pm [facility] Medical Records Department [address] [place] [address] Progress Note 10/05/24 1233 MR#: [id number] Acct: [id number] Name: DENIA GONZALEZ Rep #:[id number] : 1955 69 From: Lynne Schafer MD PCP: Dr. Yoseph Fall MD Status:AD M IN Location: [place] [address] Subjective Subjective Patient seen and examined. She [...] 91.1 H, Lymph % (Auto) 5.2 L, Mineral %(Auto) 3.0, Eos % (Auto) 0.0, Baso [...] by tomorrow. Charges/Coding Visit Charges Inpatient E&M: 73428 Subs Hosp L2 10/05/24 1828 <Electronically signed by Lynne Schafer MD> Lynne Schafer MD Cosigner Signature (if applicable): CC: ~ Signed [facility] Work Phone: 1(600) 534-201106-12-2025 Progress note [facility] Medical Records Department [facility] [place] [address] Progress Note 10/05/24 1233 MR#: [id number] Acct: [id number] Name: DENIA GONZALEZ Rep #:[id number] : 1955 69 From: Lynne Schafer MD PCP: Dr. Yoseph Fall MD Status:AD M IN Location: [place] [address]- Subjective Subjective Patient seen and examined. She [...] 91.1 H, Lymph % (Auto) 5.2 L, Mineral %(Auto) 3.0, Eos % (Auto) 0.0, Baso [...] by tomorrow. Charges/Coding Visit Charges Inpatient E&M: 59562 [facility] Hosp L2 10/05/24 1828 Lynne Schafer MD Cosigner Signature (if applicable): CC: ~ Signed [facility]06-11-2025 Progress note Author Lynne [facility] Note Date/Time October 04, 2024 5:59 pm [facility] Medical Records Department [address] [place] [address] Progress Note 10/04/24 1206 MR#: [id number] Acct: [id number] Name: DENIA GONZALEZ Rep #:[id number] : 1955 69 From: Lynne Schafer MD PCP: Dr. Yoseph Fall MD Status:AD M IN Location: [place] [address] Subjective Subjective Patient seen and examined. She [...] 90.1 H, Lymph % (Auto) 6.4 L, Mineral %(Auto) 2.9, Eos % (Auto) 0.0, Baso [...] 24-48 hours. Charges/Coding Visit Charges Inpatient E&M: 67767 Subs Hosp L2 10/04/24 9418 <Electronically signed by Lynne Schafer MD> Lynne Schafer MD Cosigner Signature (if applicable): CC: ~ Signed [facility] Work Phone: 1(877) 737-129206-11-2025 Progress note [facility] Medical Records Department [address] [place] [address] Progress Note 10/04/24 1206 MR#: [id number] Acct: [id number] Name: DENIA GONZALEZ Rep #:[id number] : 1955 69 From: Lynne Schafer MD PCP: Dr. Yoseph Fall MD Status:AD M IN Location: [place] [address] Subjective Subjective Patient seen and examined. She [...] 90.1 H, Lymph % (Auto) 6.4 L, Mineral %(Auto) 2.9, Eos % (Auto) 0.0, Baso [...] 24-48 hours. Charges/Coding Visit Charges Inpatient E&M: 84185 Subs Hosp L2 10/04/24 0206 Lynne Schafer MD Cosigner Signature (if applicable): CC: ~ Signed [facility]06-11-2025 Progress note Author Junito Madrid [facility] Note Date/Time October 04, 2024 10:2 2am [facility] Medical Records Department [address] [place] [address] Progress Note - Cardiology 10/04/24 1014 MR#: [id number] Acct: [id number] Name: DENIA GONZALEZ Rep #:[id number] : 1955 69 From: Junito Madrid MD PCP: Dr. Yoseph Fall MD Status:AD M IN Location: [place] [id number]- Subjective Subjective Patient is resting comfortably in [...] 90.1 H, Lymph % (Auto) 6.4 L, Mineral %(Auto) 2.9, Eos % (Auto) 0.0, Baso [...] 90.1 H, Lymph % (Auto) 6.4 L, Mineral % (Auto) 2.9, Eos % (Auto) 0.0, [...] baseline she will be reevaluated inin the [facility] office for further evaluation and [...] tolerated. 3. Patient should follow-up with the [facility] in 2 to 3 weeks after discharge when she is completely cleared of her COPD exacerbation. 4. The patient should call to schedule that appointment with Dr. Madrid or one of the advanced practitioners. 5. From a cardiovascular standpoint the patient should be able to be dischargedonce her COPD exacerbation is controlled. Charges/Coding Visit Charges Inpatient E&M: 70708 Subs Hosp L3 10/04/24 1022 <Electronically signed by Junito Madrid MD> Cosigner Signature (if applicable): CC: ~ Signed [facility] Work Phone: 1(447) 614-515106-11-2025 Progress note [facility] Medical Records Department [address] [place] [address] Progress Note - Cardiology 10/04/24 1014 MR#: [id number] Acct: [id number] Name: DENIA GONZALEZ Rep #:[id number] : 1955 69 From: Junito Madrid MD PCP: Dr. Yoseph Fall MD Status:AD M IN Location: [place] [address] Subjective Subjective Patient is resting comfortably in [...] 90.1 H, Lymph % (Auto) 6.4 L, Mineral %(Auto) 2.9, Eos % (Auto) 0.0, Baso [...] 90.1 H, Lymph % (Auto) 6.4 L, Mineral % (Auto) 2.9, Eos % (Auto) 0.0, [...] baseline she will be reevaluated inin the [facility] office for further evaluation and [...] tolerated. 3. Patient should follow-up with the [facility] in 2 to 3 weeks after discharge when she is completely cleared of her COPD exacerbation. 4. The patient should call to schedule that appointment with Dr. Madrid or one of the advanced practitioners. 5. From a cardiovascular standpoint the patient should be able to be dischargedonce her COPD exacerbation is controlled. Charges/Coding Visit Charges Inpatient E&M: 59209 Subs Hosp L3 10/04/24 1022 Cosigner Signature (if applicable): CC: ~ Signed [facility]06-10-2025 Progress note Author Lynne Schafer [facility] Note Date/Time October 03, 2024 5:50 pm [facility] Medical Records Department [address] [place] [address] Progress Note 10/03/24 1218 MR#: [id number] Acct: [id number] Name: DENIA GONZALEZ Rep #:[id number] : 1955 69 From: Lynne Schafer MD PCP: Dr. Yoseph Fall MD Status:AD M IN Location: [place] [address] Subjective Subjective Patient seen and examined with [...] 93.2 H, Lymph % (Auto) 5.2 L, Mineral %(Auto) 1.2, Eos % (Auto) 0.0, Baso [...] MD Eufemia Yoseph Performed By: Saray Torrez [facility] Rhythm Strip Rhythm Strip: A-fib [...] therapeutic Lovenox Charges/Coding Visit Charges Inpatient E&M: 09460 Subs Hosp L2 10/03/24 1750 <Electronically signed by Lynne Schafer MD> Lynne Schafer MD Cosigner Signature (if applicable): CC: ~ Signed [facility] Work Phone: 1(562) 152-202306-10-2025 Progress note [facility] Medical Records Department [address] [place] [address] Progress Note 10/03/24 1218 MR#: [id number] Acct: [id number] Name: DENIA GONZALEZ Rep #:[id number] : 1955 69 From: Lynne Schafer MD PCP: Dr. Yoseph Fall MD Status:AD M IN Location: [place] [address] Subjective Subjective Patient seen and examined with [...] 93.2 H, Lymph % (Auto) 5.2 L, Mineral %(Auto) 1.2, Eos % (Auto) 0.0, Baso [...] MD Eufemia Yoseph Performed By: Saray Torrez, [facility] Rhythm Strip Rhythm Strip: A-fib [...] therapeutic Lovenox Charges/Coding Visit Charges Inpatient E&M: 10917 Subs Hosp L2 10/03/24 9831 Lynne Schafer MD Cosigner Signature (if applicable): CC: ~ Signed [facility]06-10-2025 Progress note Author Junito Madrid [facility] Note Date/Time October 03, 2024 8:49 am [facility] Medical Records Department [address] [place] [address] Progress Note - Cardiology 10/03/24 0840 MR#: [id number] Acct: [id number] Name: DENIA GONZALEZ Rep #:[id number] : 1955 69 From: Junito Madrid MD PCP: Dr. Yoseph Fall MD Status:AD M IN Location: [place] [address] Subjective Subjective Patient is resting comfortably in [...] MD Eufemia Yoseph Performed By: Saray Torrez JOE Physical Exam Const alert and oriented x3 [...] as tolerated. Charges/Coding Visit Charges Inpatient E&M: 97783 Subs Hosp L3 10/03/24 0849 <Electronically signed by Junito Madrid MD> Cosigner Signature (if applicable): CC: ~ Signed [facility] Work Phone: 1(793) 891-683906-10-2025 Progress note [facility] Medical Records Department [address] [place] [address] Progress Note - Cardiology 10/03/24 0840 MR#: [id number] Acct: [id number] Name: DENIA GONZALEZ Rep #:[id number] : 1955 69 From: Junito Madrid MD PCP: Dr. Yoseph Fall MD Status:AD M IN Location: [place] [address] Subjective Subjective Patient is resting comfortably in [...] MD Eufemia Yoseph Performed By: Saray Torrez JOE Physical Exam Const alert and oriented x3 [...] as tolerated. Charges/Coding Visit Charges Inpatient E&M: 17488 [facility] Hosp 10/03/24 0849 Cosigner Signature (if applicable): CC: ~ Signed [facility]06-09-2025 Progress note Author Lynne [facility] Note Date/Time October 02, 2024 6:52p m [facility] Medical Records Department [address] [place] [address] Progress Note 10/02/24 1220 MR#: [id number] Acct: [id number] Name: DENIA GONZALEZ Rep #:[id number] : 1955 69 From: Lynne Schafer MD PCP: Dr. Yoseph Fall MD Status:AD M IN Location: [place] [address]- Subjective Subjective Patient seen and examined. SHe [...] 89.8 H, Lymph % (Auto) 6.1 L, Mineral %(Auto) 3.3, Eos % (Auto) 0.0, Baso [...] therapeutic lovenox Charges/Coding Visit Charges Inpatient E&M: 04630 Subs Hosp L3 10/02/24 1852 <Electronically signed by Lynne Schafer MD> Lynne Schafer MD Cosigner Signature (if applicable): CC: ~ Signed [facility] Work Phone: 1(134) 868-795206-09-2025 Progress note [facility] Medical Records Department [address] [place] [address] Progress Note 10/02/24 1220 MR#: [id number] Acct: [id number] Name: DENIA GONZALEZ Rep #:[id number] : 1955 69 From: Lynne Schafer MD PCP: Dr. Yoseph Fall MD Status:AD M IN Location: [place] [id number] Subjective Subjective Patient seen and examined. SHe [...] 89.8 H, Lymph % (Auto) 6.1 L, Mineral %(Auto) 3.3, Eos % (Auto) 0.0, Baso [...] therapeutic lovenox Charges/Coding Visit Charges Inpatient E&M: 02554 [facility] Hosp L3 10/02/24 7975 Lynne Schafer MD Cosigner Signature (if applicable): CC: ~ Signed [facility]06-09-2025 Consult note Author Junito Madrid [facility] Note Date/Time October 02, 2024 10:13 am [facility] Medical Records Department [address] [place] [address] Consultation - Cardiology 10/02/24 1000 MR#: [id number] Acct: [id number] Name: DENIA GONZALEZ Rep #:[id number] : 1955 69 From: Junito Madrid MD PCP: Dr. Yoseph Fall MD Status:AD M IN Location: [place] [id number]- 1 Assessment & Plan Assessment/Plan (1) Tachycardia: PLAN: [...] cardiovascular issues that she is aware of. [facility] Medical History RLS (restless legs syndrome) History [...] Applicable: No Charges/Coding Visit Charges Inpatient E&M: 38847 Init Hosp L2 Objective Data Vital Signs: [...] 89.8 H, Lymph % (Auto) 6.1 L, Mineral %(Auto) 3.3, Eos % (Auto) 0.0, Baso [...] 89.8 H, Lymph % (Auto) 6.1 L, Mineral % (Auto) 3.3, Eos % (Auto) 0.0, [...] applicable): CC: Dr. Yoseph Fall MD~ Signed [facility] Work Phone: 1(612) 810-511706-09-2025 Consult note [facility] Medical Records Department [address] [place] [address] Consultation - Cardiology 10/02/24 1000 MR#: [id number] Acct: [id number] Name: DENIA GONZALEZ Rep #:[id number] : 1955 69 From: Junito Madrid MD PCP: Dr. Yoseph Fall MD Status:AD M IN Location: [place] [address]- 1 Assessment & Plan Assessment/Plan (1) Tachycardia: PLAN: [...] cardiovascular issues that she is aware of. [facility] Medical History RLS (restless legs syndrome) History [...] Applicable: No Charges/Coding Visit Charges Inpatient E&M: 50468 Init Hosp L2 Objective Data Vital Signs: [...] 89.8 H, Lymph % (Auto) 6.1 L, Mineral %(Auto) 3.3, Eos % (Auto) 0.0, Baso [...] 89.8 H, Lymph % (Auto) 6.1 L, Mineral % (Auto) 3.3, Eos % (Auto) 0.0, [...] applicable): CC: Dr. Yoseph Fall MD~ Signed [facility]06-08-2025 Progress note Author Dionne Porter [facility] Note Date/Time October 01, 2024 9:42p m [facility] Medical Records Department [address] [place] [address] Progress Note - Hospitalist 10/01/24 2141 MR#: [id number] Acct: [id number] Name: DENIA GONZALEZ Rep #:[id number] : 1955 69 From: Dionne Porter MD PCP: Dr. Yoseph Fall MD Status:AD M IN Location: [place] [address] Hospitalist Note Patient with episode tacycardia, rate 160s, went back down to 120s, changing to ipratropium only instead of duonebs, dose with her verapamil now and will assureno active EtOH usage history as prior EtOH abuse. 10/01/242141 <Electronically signed by Dionne Porter MD> Cosigner Signature (if applicable): CC: ~ Signed [facility] Work Phone: 1(248) 264-754006-08-2025 Progress note [facility] Medical Records Department [address] [place] [address] Progress Note - Hospitalist 10/01/242140 MR#: [id number] Acct: [id number] Name: DENIA GONZALEZ Rep #:[id number] : 1955 69 From: Dionne Porter MD PCP: Dr. Yoseph Fall MD Status:AD M IN Location: [place] [address] Hospitalist Note Patient with episode tacycardia, rate 160s, went back down to 120s, changing to ipratropium only instead of duonebs, dose with her verapamil now and will assureno active EtOH usage history as prior EtOH abuse. 10/01/242141 Cosigner Signature (if applicable): CC: ~ Signed [facility]06-08-2025 Progress note Author Jangisell Bolanos [facility] Note Date/Time October 01, 2024 10:49 am [facility] Medical Records Department [address] [place] [address] Progress Note - Hospitalist 10/01/24 1043 MR#: [id number] Acct: [id number] Name: DENIA GONZALEZ Rep #:[id number] : 1955 69 From: Jan brennan MD PCP: Dr. Yoseph Fall MD Status:AD M IN Location: [place] [address] Subjective Subjective Feels okay but not quite [...] 89.0 H, Lymph % (Auto) 6.8 L, Mineral %(Auto) 3.6, Eos % (Auto) 0.0, Baso [...] DVT: Lovenox Charges/Coding Visit Charges Inpatient E&M: 32348 Subs Hosp L2 10/01/24 1049 <Electronically signed by Jan Bolanos MD> Cosigner Signature (if applicable): CC: ~ Signed [facility] Work Phone: 1(956) 524-896706-08-2025 Progress note [facility] Medical Records Department [address] [place] [address] Progress Note - Hospitalist 10/01/24 1043 MR#: [id number] Acct: [id number] Name: DENIA GONZALEZ Rep #:[id number] : 1955 69 From: Jan brennan MD PCP: Dr. Yoseph Fall MD Status:AD M IN Location: [place] [address] Subjective Subjective Feels okay but not quite [...] 89.0 H, Lymph % (Auto) 6.8 L, Mineral %(Auto) 3.6, Eos % (Auto) 0.0, Baso [...] DVT: Lovenox Charges/Coding Visit Charges Inpatient E&M: 13547 Subs Hosp L2 10/01/24 1049 Cosigner Signature (if applicable): CC: ~ Signed [facility]06-07-2025 Progress note Author Jan Bolanos [facility] Note Date/Time September 30, 2024 1:23p m [facility] Medical Records Department [address] [place] [address] Progress Note - Hospitalist 09/30/24 1220 MR#: [id number] Acct: [id number] Name: DENIA GONZALEZ Rep #:[id number] : 1955 69 From: Jan brennan MD PCP: Dr. Yoseph Fall MD Status:AD M IN Location: [place] [address] Subjective Subjective No issues overnight, she still [...] 88.1 H, Lymph % (Auto) 8.0 L, Mineral %(Auto) 3.5, Eos % (Auto) 0.0, Baso [...] DVT: Lovenox Charges/Coding Visit Charges Inpatient E&M: 06862 Subs Hosp L2 09/30/24 1323 <Electronically signed by Jan Bolanos MD> Cosigner Signature (if applicable): CC: ~ Signed [facility] Work Phone: 1(957) 987-563106-07-2025 Progress note [facility] Medical Records Department [address] [place] [address] Progress Note - Hospitalist 09/30/24 1220 MR#: [id number] Acct: [id number] Name: DENIA GONZALEZ Rep #:[id number] : 1955 69 From: Jan brennan MD PCP: Dr. Yoseph Fall MD Status:AD M IN Location: [place] [id number]- 1 Subjective Subjective No issues overnight, she still [...] 88.1 H, Lymph % (Auto) 8.0 L, Mineral %(Auto) 3.5, Eos % (Auto) 0.0, Baso % (Auto) 0.0, Absolute Neuts (auto) 6.8, Absolute Lymphs (auto) 0.61 L, Nucleated RBC % 0, Sodium 138, Potassium 4.6, Svvxowbj67 L, Carbon Dioxide 33.3 H, Anion Gap [...] DVT: Lovenox Charges/Coding Visit Charges Inpatient E&M: 81961 Subs Hosp L2 09/30/24 1323 Cosigner Signature (if applicable): CC: ~ Signed [facility]06-06-2025 Evaluation note* Diagnosis Onset Date Resolution Status Admit Date Afib acute September 29, 2024 11:36am Anxiety and depression acute 2024 11:36am Aortic valve stenosis acute Sep 11:36am Tachycardia acute September 29 11:36am COPD with acute exacerbation chronic September 29, 2024 11:36am Non-small cell lung cancer chronic September 29, 2024 11:36am [facility] Work Phone: 1(112) 216-174706-06-2025 Evaluation note* Diagnosis Onset Date Resolution Status [...] hypertension chroni c November 03, 2024 12:58pm [facility] Work Phone: 1(616) 752-564306-06-2025 Evaluation note* Diagnosis Onset Date Resolution Status [...] acute exacerbation chronic December 26, 2024 8:00pm [facility] Work Phone: 1(140) 492-812106-06-2025 Evaluation note* Diagnosis Onset Date Resolution Status Admit Date Anxiety and depression acute ne 2024 11:36am Aortic valve stenosis acute Sep 11:36am Tachycardia acute September 29 11:36am Afib chronic September 29, 2024 11:36am COPD with acute exacerbation chronic September 29, 2024 11:36am Non-small cell lung cancer chronic September 29, 2024 11:36am Aortic valve stenosis acute [place] 2024 12:58pm Afib chronic November 03 12:58pm Benign essential hypertension chroni c November 03, 2024 12:58pm Acute anemia acute December 8:00pm Acute respiratory insufficiency acute December 26, 8:00pm Anxiety acute December 26, 2024 8:00pm Anxiety and depression acute Se pt2024 8:00pm Palliative care encounter acute December 26, 2024 8:00pm Respiratory insufficiency acute December 26, 2024 8:00pm COPD with acute exacerbation chronic December 26, 2024 8:00pm [facility] Work Phone: 1(772) 776-654206-06-2025 Discharge summary Author Riley [facility] Note Date/Time September 29, 2024 4:33a m [facility] Medical Records Department [address] [place] [address] Emergency Department Summary 09/29/24 MR#: [id number] Acct: [id number] Name: DENIA GONZALEZ Rep #:[id number] : 1955 69 From: Riley Jeff DO [...] Secondary to that she presents for evaluation [facility] Medical History RLS (restless legs syndrome) [...] 78.5 H Lymph % (Auto) 13.2 L Mineral % (Auto) 6.9 Eos % (Auto) 0.7 [...] of an acute cardiopulmonary abnormality. Reading Location: [facility] Chest x-ray as interpreted by the emergency medicine physician reveals no acute infiltrate pneumothorax or pleural effusion Management Discussion w/another healthcare provider: Hospitalist Discharge Plan Dx/Rx/DC Orders Clinical Impression: COPD with acute exacerbation, Benign essential hypertension, Anxiety and depression Disposition Disposition: Acute Care Hospital [facility] What to do if you have Problems For any increased pain, shortness of breath, bleeding, nausea or vomiting, chestpain, or any unexpected problems, contact your Primary Care Provider. Call [facility] ([phone]) or report to the closest Emergency Room. Call 911 if necessary. 09/29/24 0433 <Electronically signed by Riley Jeff DO> Cosigner Signature (if applicable): CC: Dr. Yoseph Fall MD ~ Signed [facility] Work Phone: 1(118) 774-431306-06-2025 History and physical note Author Dionne Porter [facility] Note Date/Time September 29, 2024 4:32a m [facility] Medical Records Department [address] [place] [address] H&P Exam - Hospitalist 09/29/24 0403 MR#: [id number] Acct: [id number] Name: DENIA GONZALEZ Rep #:[id number] : 1955 69 From: Dionne Porter MD [...] allergic rhinitis, HTN who presents to the [facility] ED on 09/29/2024 with history of [...] 78.5 H, Lymph % (Auto) 13.2 L, Mineral % (Auto) 6.9, Eos % (Auto) 0.7, [...] of an acute cardiopulmonary abnormality. Reading Location: [facility] Assessment & Plan Assessment/Plan (1) COPD with acute exacerbation: PLAN: Plan The patient is a 69 y/o F w/ PMHx: GERD, RLS, Anxiety and Depression, Former tobacco use, Former EtOH Abuse, Hx Non-small cell lung cancer status post right lung lobectomy remotely 2003, COPD/Asthma with Chronic Hypoxic Respiratory Failure with allergic rhinitis, HTN who presents to the [facility] ED on 09/29/2024 with history of [...] Code status. Charges/Coding Visit Charges Inpatient E&M: 21705 Init Hosp L3 09/29/24 0432 <Electronically signed by Dionne Porter MD> Cosigner Signature (if applicable): CC: Dr. Dionne Porter MD; Dr. Yoseph Fall MD~ Signed [facility] Work Phone: 1(717) 355-183606-06-2025 Discharge summary [facility] Medical Records Department [address] [place] [address] Emergency Department Summary 09/29/24 MR#: [id number] Acct: [id number] Name: DENIA GONZALEZ Rep #:[id number] : 1955 69 From: Riley Jeff DO [...] Secondary to that she presents for evaluation [facility] Medical History RLS (restless legs syndrome) [...] 78.5 H Lymph % (Auto) 13.2 L Mineral % (Auto) 6.9 Eos % (Auto) 0.7 [...] of an acute cardiopulmonary abnormality. Reading Location: [id number] Chest x-ray as interpreted by the emergency medicine physician reveals no acute infiltrate pneumothorax or pleural effusion Management Discussion w/another healthcare provider: Hospitalist Discharge Plan Dx/Rx/DC Orders Clinical Impression: COPD with acute exacerbation, Benign essential hypertension, Anxiety and depression Disposition Disposition: Acute Care Hospital [facility] What to do if you have Problems For any increased pain, shortness of breath, bleeding, nausea or vomiting, chestpain, or any unexpected problems, contact your Primary Care Provider. Call [facility] ([phone]) or report tothe closest Emergency Room. Call 911 if necessary. 09/29/24 8648 Cosigner Signature (if applicable): CC: Dr. Yoseph Fall MD ~ Signed [facility]06-06-2025 History and physical note [facility] Medical Records Department [address] [place] [address] H&P Exam - Hospitalist 09/29/24 0403 MR#: [id number] Acct: [id number] Name: DENIA GONZALEZ Rep #:[id number] : 1955 69 From: Dionne Porter MD [...] allergic rhinitis, HTN who presents to the [facility] ED on 09/29/2024 with history of [...] albuterol, Solu-Medrol 125 mg IV x 1. [facility] Medical History RLS (restless legs syndrome) History [...] 78.5 H, Lymph % (Auto) 13.2 L, Mineral % (Auto) 6.9, Eos % (Auto) 0.7, [...] of an acute cardiopulmonary abnormality. Reading Location: MIMI Assessment & Plan Assessment/Plan (1) COPD with acute exacerbation: PLAN: Plan The patient is a 69 y/o F w/ PMHx: GERD, RLS, Anxiety and Depression, Former tobacco use, Former EtOH Abuse, Hx Non-small cell lung cancer status post right lung lobectomy remotely 2003, COPD/Asthma with Chronic Hypoxic Respiratory Failure with allergic rhinitis, HTN who presents to the [facility] ED on 09/29/2024 with history of [...] place but she notes she would want Brianher significant other to be her medical decision-maker if necessary. Discussed CODE status at length including difference between FULL code, DNR-CCA and DNR-CC status. Following discussions about thedifferences in these status, requested Full Code status. Charges/Coding Visit Charges Inpatient E&M: 28907 Init Hosp L3 09/29/24 0432 Cosigner Signature (if applicable): CC: Dr. Dionne Porter MD; Dr. Yoseph Fall MD~ Signed [facility]06-06-2025 Radiology Diagnostic study note [facility] Imaging Services [address] [place], [place] [id number] Chest PA and Lateral MR#: [id number] Acct: [id number] Name: DENIA GONZALEZ Rep #: [id number] : 1955 F 69 From: Yaquelin Lindquist MD PCP: Dr. Yoseph Fall MD Status: RE G ER Study:Chest PA and Lateral Date of Exam: 09/29/24 Exam# [id number] Ordering Dr: Silvia Jeff DO PROCEDURE: CHEST [...] of an acute cardiopulmonary abnormality. Reading Location: [facility] CC: Dr. Yoseph Fall MD; Riley Jeff DO ~ [employer] Supervisor: Signed [facility]06-05-2025 Telephone encounter Note* Telephone Encounter - Yoseph Fall MD - 09/28/2024 4:57 PM EDT OK to refill as ordered Yoseph Fall MD [facility]06-05-2025 Miscellaneous Notes* Telephone Encounter - Yoseph [...] 28, 2024 4:34 PM documented in this encounterMemorial [facility] Telephone encounter Note * Telephone Encounter [...] Bliss RN September 28, 2024 4:34 PM [facility]2025 Telephone encounter Note* Telephone Encounter - [...] 5 to 15 minutes Nelson Robert APRN.CNP [facility]2025 Miscellaneous Notes* Telephone Encounter - Nelson [...] Use over 5 to 15 minutes Elma Smith August 29, 2024 10:54 AM documented in this encounterMem[facility] Telephone encounter Note * Telephone Encounter [...] Use over 5 to 15 minutes Elma Smith August 29, 2024 10:54 AM [facility]04-22-2025 Telephone encounter Note* Telephone Encounter - [...] 30 days. Authorizing Provider: NELSON ROBERT APRN.CNP T [facility]04-22-2025 Miscellaneous Notes* Telephone Encounter - Nelson [...] 15, 2024 10:53 AM documented in this encounterMemorial [facility]04-[facility]-2025 Telephone encounter Note * Telephone Encounter [...] Hennessy LPN August 15, 2024 10:53 AM [facility]03-31-2025 Telephone encounter Note* Telephone Encounter - Clarisse Anguiano RN - 07/24/2024 6:11 PM EDT Pt significant other Mike called and is notified of providers results and instructions. He voices understanding. Clarisse Anguiano RN [facility]03-31-2025 Miscellaneous Notes* Telephone Encounter - Clarisse [...] rash. He states the Pt has a rubber goods tester that come in tomorrow and she could try and help the Pt with a VV. He states she usually does phone visits. I told him the provider may need to see the rash. Pt was wanting the provider to order an antibiotic for it. Mike states he knows a cream could probably be called in. Please call and advise Pt. documented in this encounterMemorial [facility]03-31-2025 Telephone encounter Note * Telephone Encounter - Yoseph Fall MD - 07/24/2024 5:08 PM EDT She may try taking 40 mg of prednisone (she has 10 mg tablets at home) for 3 days and see if this clears up the rash; sounds like an allergic reaction. Yoseph Fall MD [facility]03-31-2025 Telephone encounter Note* Telephone Encounter - [...] rash. He states the Pt has a rubber goods tester that come in tomorrow and she could try and help the Pt with a VV. He states she usually does phone visits. I told him the provider may need to see the rash. Pt was wanting the provider to order an antibiotic for it. Mike states he knows a cream could probably be called in. Please call and advise Pt. [facility]03-19-2025 Telephone encounter Note* Telephone Encounter - Sukhi Marrero RN - 07/12/2024 2:47 PM EDT Jenni with [facility] calls to request chart notes to support patients need for continued oxygen. Most recent visits have all been distant health. Jenni requests most recent visit be faxed. Faxed to [phone] per request. Sukhi Marrero RN [facility]03-19-2025 Miscellaneous Notes* Telephone Encounter - Sukhi Marrero RN - 07/12/2024 2:47 PM EDT Jenni with [facility] calls to request chart notes to support patients need for continued oxygen. Most recent visits have all been distant health. Jenni requests most recent visit be faxed. Faxed to [phone] per request. Sukhi Marrero RN documented in this encounterMemorial [facility]03-13-2025 History of Present illness Narrative* Yoseph [...] visit. Either the patient or their legal client relations representative has been informed of the risks and benefits of -- and alternatives to -- treatment through a remote evaluation andconsents to proceed with the evaluation remotely. Completing tele-health visit for routine follow up. Pt reports that she has a lady coming from [facility] tomorrow and asking what shots she needs. [...] at 2.5-3 L. Pain: Chronic back; taking Franklin 5-325 mg 1 pill BID as needed. [...] lung, unspecified site (HCC) 04/26/2003 Lung cancer CA (myocardial infarction) (HCC) 10-10 taken to [facility] heart stopped Obstructive chronic bronchitis with exacerbation [...] as directed. Dx: COPD J44.9 Nebulizer Accessories [facility] Mask and supplies as needed PULSE OXIMETER [facility] Use as directed to check oxygen saturation level ammonium lactate (AMLACTIN) 12 % lotion Apply 1 application to affected area as needed for Dry Skin. losartan (COZAAR) 50 mg tablet Take 0.5 tablets by mouth once daily. OXYGEN, HOME THERAPY, 2.5 L/min by Nasal Cannula route continuous. Use as directred Disposable Gloves (DISPOSABLE LATEX-FREE GLOVES) [facility] 1 Box once every [...] Past Histories independently gathered by the clinical call center support consultant and the remaining scribed note accurately describes my personal service to the patient. 11-20 minutes of time spent on phone call Yoseph Fall MD The documentation for this note was completed by Sanjana Baca MA acting as scribe for Yoseph Fall MD. July 06, 2024 2:02 PM. Sanjana Baca MA documented in this encounterMemorial Health [facility]03-13-2025 NoteHNO ID: [id number] Author: YOSEPH FALL MD Service: ? Author [...] visit. Either the patient or their legal client relations representative has been informed of the risks and benefits of -- and alternatives to -- treatment through a remote evaluation and consents to proceed with the evaluation remotely. Completing tele-health visit for routine follow up. Pt reports that she has a lady coming from [facility] tomorrow and asking what shots she needs. [...] at 2.5-3 L. Pain: Chronic back; taking Franklin 5-325 mg 1 pill BID as needed. [...] lung, unspecified site (HCC) 04/26/2003 Lung cancer CA (myocardial infarction) (HCC) 10-10 taken to [facility] heart stopped Obstructive chronic bronchitis with exacerbation [...] muscle spasm. montelukast (SINGULAIR) (more content not included)...[facility] 06-22-2024 Telephone encounter Note* Telephone Encounter [...] Watson LPN June 22, 2024 10:53 AM [facility]02-27-2025 Miscellaneous Notes* Telephone Encounter - Brynn [...] 22, 2024 10:53 AM documented in this encounterMemorial [facility]02-24-2025 Telephone encounter Note * Telephone Encounter - Yoseph Fall MD - 06/19/2024 12:48 PM EST OK to refill as ordered Yoseph Fall MD [facility]02-24-2025 Miscellaneous Notes* Telephone Encounter - Yoseph [...] 19, 2024 9:31 AM documented in this encounterMemorial Health [facility]02-[facility]-2025 Telephone encounter Note * Telephone Encounter [...] Mora LPN June 19, 2024 9:31 AM [facility]02-17-2025 Telephone encounter Note* Telephone Encounter - Sanjana Baca MA - 06/12/2024 3:39 PM EST Form completed and faxed back to information below. Sanjana Baca MA [facility]02-17-2025 Miscellaneous Notes* Telephone Encounter - Sanjana Baca MA - 06/12/2024 3:39 PM EST Form completed and faxed back to information below. Sanjana Baca MA * Telephone Encounter - Sanjana Baca MA - 06/12/2024 12:44 PM EST Type of form: Medical Necessity for incontinence supplies. Form received via fax When form is completed, Fax form to [phone] Form has been forwarded to Physician Desk: Dr. Eufemia Baca MA documented in this encounterMemorial Health [facility]02-17-2025 Telephone encounter Note * Telephone Encounter - Sanjana Baca MA - 06/12/2024 12:44 PM EST Type of form: Medical Necessity for incontinence supplies. Form received via fax When form is completed, Fax form to [phone] Form has been forwarded to Physician Desk: Dr. Eufemia Baca MA [facility]02-07-2025 Telephone encounter Note* Telephone Encounter - Ban Villafana LPN - 06/02/2024 8:11 AM EST Images from the original note were not included. Electronic PA rec'd and completed for cyclobenzaprine. This was denied. Note from payer: CaseId:[id number];Status:Denied;Review Type:Prior Auth;Appeal Information: Attention:ATTN: MEDICARE CLINICAL APPEALS [employer] [address] [address],[place], [place],[address] WebAddress:[email or web address]; Important - Please read the below note [...] for a decision on the appeal.; Payer: [employer] HOME DELIVERY [phone] Electronic appeal: Supported View History Notes Time [...] to its destination. To be filled at: [facility] [address] [place] [id number] [address] - [phone] [facility]02-07-2025 Miscellaneous Notes* Telephone Encounter - Ban Villafana LPN - 06/02/2024 8:11 AM EST Images from the original note were not included. Electronic PA rec'd and completed for cyclobenzaprine. This was denied. Note from payer: CaseId:[id number];Status:Denied;Review Type:Prior Auth;Appeal Information: Attention:ATTN: MEDICARE CLINICAL APPEALS [employer] [address] [address],[place], [place],[address] WebAddress:[email or web address]; Important - Please read the below note [...] for a decision on the appeal.; Payer: [employer] HOME DELIVERY [phone] Electronic appeal: Supported View History Notes Time [...] to its destination. To be filled at: [facility] [address] [place] [address] [address] [facility] - [phone] documented in this encounterMemorial Health [facility]02-06-2025 Telephone encounter Note * Telephone Encounter - Yoseph Fall MD - 06/01/2024 3:18 PM EST OK to refill as ordered Yoseph Fall MD [facility]02-06-2025 Miscellaneous Notes* Telephone Encounter - Yoseph [...] 01, 2024 2:45 PM documented in this encounterMemorial Health System [facility]02-06-2025 Telephone encounter Note * Telephone Encounter [...] Gurrola RN June 01, 2024 2:45 PM [facility]01-21-2025 Telephone encounter Note* Telephone Encounter - Yoseph Fall MD - 05/16/2024 10:33 AM EST OK to refill as ordered Yoseph Fall MD [facility]01-21-2025 Miscellaneous Notes* Telephone Encounter - Yoseph [...] 16, 2024 10:31 AM documented in this encounterMemorial Health System [facility]01-21-2025 Telephone encounter Note * Telephone Encounter [...] Marrero RN May 16, 2024 10:31 AM [facility]01-21-2025 NotePatient Outreach (FAMPWS) DENIA GONZALEZ ([id number]) 1955 F Date Time Provider Department 05/16/24 YOSEPH FALL FAMPWS During your visit today, we recorded the following information about you: Allergies As of Date: 05/16/2024 (No Known Allergies) Date Reviewed: 04/07/2024 Reviewed by: Sanjana Baca MA - Fully Assessed Visit Diagnosis:Encounter for screening mammogram for breast cancer [Z12.31] Order(s):MICKIE SCREENING W RASHAUN [[id number]] Order #: [id number] FUTURE Prescriptions as of 06/16/2024 - cyclobenzaprine [...] directed. Dx: COPD J44.9 - [facility]ul[facility] and supplies as needed - PULSE OXIMETER [facility] Use as directed to check oxygen saturation level - ammonium lactate (AMLACTIN) 12 % lotion Apply 1 application to affected area as needed for Dry Skin. - losartan (COZAAR) 50 mg tablet Take 0.5 tablets by mouth once daily. - OXYGEN, HOME THERAPY, 2.5 L/min by Nasal Cannula route continuous. Use as directred - Disposable Gloves (DISPOSABLE LATEX-FREE GLOVES) mis 1 [...] chronic bronchitis with exacerbatio* Encounter Status:Closed by HERNESTO VOGEL on 06/16/24[facility] 04-10-2024 Telephone encounter Note* Telephone Encounter - Nelson Robert APRN.CNP - 04/10/2024 12:37 PM EST The following approved medication requests have been transmitted electronically. Requested Prescriptions Pending Prescriptions Disp Refills tiotropium (SPIRIVA) 18 mcg inhalation capsule 30 capsule 11 Sig: Inhale 1 capsule as instructed once daily. Nelson Robert APRN.CNP [facility]12-16-2024 Miscellaneous Notes* Telephone Encounter - Nelson Robert APRN.CNP - 04/10/2024 12:37 PM EST The following approved medication requests have been transmitted electronically. Requested Prescriptions Pending Prescriptions Disp Refills tiotropium (SPIRIVA) 18 mcg inhalation capsule 30 capsule 11 Sig: Inhale 1 capsule as instructed once daily. Nelson Robert APRN.CNP * Telephone [...] 10, 2024 12:21 PM documented in this encounterCleveland [id number] Telephone encounter Note * Telephone Encounter - [...] Bliss RN April 10, 2024 12:21 PM [facility]12-13-2024 History of Present illness Narrative* Yoseph [...] visit. Either the patient or their legal client relations representative has been informed of the risks and benefits of -- and alternatives to -- treatment through a remote evaluation andconsents to proceed with the evaluation remotely. Tobacco - terminal carman use of cigarettes, but is working very hard on cutting down. Notes increased usage due to stress. Dog recently , grand daughter in hospital. GI/Uro - Denies any stomach, bowel or urinary issues. GERD - Symptoms stable with use of Prilosec 20 mg once daily. Pain - Chronic back pain that is currently being treated with Franklin 5-325 mg 1 tab po bid prn. [...] beagle of 14 years.Also notes granddaughter in [facility]. Trying to learn to live her [...] lung, unspecified site (HCC) 04/26/2003 Lung cancer CA (myocardial infarction) (HCC) 10-10 taken to [facility] heart stopped Obstructive chronic bronchitis with exacerbation [...] as directed. Dx: COPD J44.9 Nebulizer Accessories [facility] Mask and supplies as needed PULSE OXIMETER [facility] Use as directed to check oxygen saturation level ammonium lactate (AMLACTIN) 12 % lotion Apply 1 application to affected area as needed for Dry Skin. losartan (COZAAR) 50 mg tablet Take 0.5 tablets by mouth once daily. OXYGEN, HOME THERAPY, 2.5 L/min by Nasal Cannula route continuous. Use as directred Disposable Gloves (DISPOSABLE LATEX-FREE GLOVES) [facility] 1 Box once every [...] 10/25/2023 Influenza Vaccine(1) due on 12/26/2023 Covid-19 Vaccine(5 - season) due on 12/26/2023 Colorectal Cancer [...] Past Histories independently gathered by the clinical call center support consultant and the remaining scribed note accurately describes my personal service to the patient. 11-20 minutes of time spent on phone call Yoseph Fall MD The documentation for this note was completed by Sanjana Baca MA acting as scribe for Yoseph Fall MD. April 07, 2024 8:48 AM. aSnjana Baca MA documented in this encounterMemorial Health System [facility]12-13-2024 NoteHNO ID: [id number] Author: YOSEPH FALL MD Service: ? Author [...] visit. Either the patient or their legal client relations representative has been informed of the risks and benefits of -- and alternatives to -- treatment through a remote evaluation and consents to proceed with the evaluation remotely. Tobacco - terminal carman use of cigarettes, but is working very hard on cutting down. Notes increased usage due to stress. Dog recently , grand daughter in hospital. GI/Uro - Denies any stomach, bowel or urinary issues. GERD - Symptoms stable with use of Prilosec 20 mg once daily. Pain - Chronic back pain that is currently being treated with Franklin 5-325 mg 1 tab po bid prn. [...] years. Also notes granddaughter in [facility]. Trying to learn to live her [...] lung, unspecified site (HCC) 04/26/2003 Lung cancer CA (myocardial infarction) (HCC) 10-10 taken to [facility] heart stopped Obstructive chronic bronchitis with exacerbation [...] HISTORY Procedure Laterality Date CONIZATION CERVIX W/WO DANWI RPR ELTRD EXC 2003 Dr. Danis BRYSON [...] File Prior to Visit (more content not included)...[facility]11-27-2024 Telephone encounter Note* Telephone Encounter - Vickie Niño LPN - 03/22/2024 9:03 AM EST left message to notify patient that med has been sent into pharmacy. Vickie Niño LPN [facility]11-27-2024 Miscellaneous Notes* Telephone Encounter - Vickie Niño LPN - 03/22/2024 9:03 AM EST left message to notify patient that med has been sent into pharmacy. Vickie Niño LPN * Telephone Encounter - Iman Person APRN.CNP - 03/22/2024 8:51 AM EST The following approved medication requests have been transmitted electronically. Requested Prescriptions Signed Prescriptions Disp Refills amoxicillin (AMOXIL) 875 mg tablet 20 tablet 0 Sig: Take 1 tablet by mouth two times a day for 10 days. Authorizing Provider: IMAN PERSON APRN.[place] * Telephone Encounter - Judy Bliss [...] advise, Judy Bliss RN documented in this encounterMemorial Health System [facility]11-27-2024 Telephone encounter Note * Telephone Encounter - Iman Person APRN.CNP - 03/22/2024 8:51 AM EST The following approved medication requests have been transmitted electronically. Requested Prescriptions Signed Prescriptions Disp Refills amoxicillin (AMOXIL) 875 mg tablet 20 tablet 0 Sig: Take 1 tablet by mouth two times a day for 10 days. Authorizing Provider: IMAN PERSON APRN.CNP [facility]11-26-2024 Telephone encounter Note* Telephone Encounter - [...] Please review and advise, Judy Bliss RN [facility]11-25-2024 Telephone encounter Note* Telephone Encounter - [...] 30 days. Authorizing Provider: NELSON ROBERT APRN.CNP [facility]11-25-2024 Miscellaneous Notes* Telephone Encounter - Nelson [...] 20, 2024 12:49 PM documented in this encounterMemorial Health [facility]11-25-2024 Telephone encounter Note * Telephone Encounter [...] Marrero RN March 20, 2024 12:49 PM [facility]11-08-2024 Telephone encounter Note* Telephone Encounter - Nelson Robert APRN.CNP - 03/03/2024 11:53 AM EST The following approved medication requests have been transmitted electronically. Requested Prescriptions Pending Prescriptions Disp Refills predniSONE (DELTASONE) 10 mg tablet 30 tablet 5 Sig: Take 1.5 tablets by mouth every other day. Nelson Robert APRN.CNP [facility]11-08-2024 Miscellaneous Notes* Telephone Encounter - Nelson [...] last office visit in the department: 11/29/2023- [facility] Does the patient have a future office visit with this provider/department: No Visit date not found Requested Prescriptions Pending Prescriptions Disp Refills predniSONE (DELTASONE) 10 mg tablet 30 tablet 5 Sig: Take 1.5 tablets by mouth every other day. Judy Bliss RN March 03, 2024 11:23 AM documented in this encounterMemorial Health [facility]11-08-2024 Telephone encounter Note * Telephone Encounter [...] last office visit in the department: 11/29/2023- [facility] Does the patient have a future office visit with this provider/department: No Visit date not found Requested Prescriptions Pending Prescriptions Disp Refills predniSONE (DELTASONE) 10 mg tablet 30 tablet 5 Sig: Take 1.5 tablets by mouth every other day. Judy Bliss RN March 03, 2024 11:23 AM [facility]10-21-2024 Telephone encounter Note* Telephone Encounter - [...] 15 minutes Authorizing Provider: NELSON ROBERT APRN.CNP [facility]10-21-2024 Miscellaneous Notes* Telephone Encounter - Nelson Robert APRN.CNP - 02/14/2024 11:55 AM EDT Approved. [facility] website checked and validated. All prescriptions have [...] every 4 hours as needed. Authorizing Provider: JAKOB, NELSON ipratropium-albuterol (DUONEB) 0.5 mg-3 mg(2.5 mg base)/3 [...] 14, 2024 11:28 AM documented in this encounterMemorial Health System [facility]10-21-2024 Telephone encounter Note * Telephone Encounter [...] Watson LPN February 14, 2024 11:28 AM [facility]10-11-2024 Telephone encounter Note* Telephone Encounter - Lauren Duarte MA - 02/04/2024 8:25 AM EDT Pt informed, verbalized understanding. Lauren Duarte MA [facility]10-11-2024 Miscellaneous Notes* Telephone Encounter - Lauren [...] advise, Judy Bliss RN documented in this encounterMemorial Health [facility]10-11-2024 Telephone encounter Note * Telephone Encounter - Yoseph Fall MD - 02/04/2024 8:16 AM EDT OK for amoxicillin as ordered. If she does not improve over the weekend she would need to be seen. Yoseph Fall MD [facility]10-10-2024 Telephone encounter Note* Telephone Encounter - [...] Please review and advise, Judy Bliss RN [facility]10-10-2024 Telephone encounter Note* Telephone Encounter - Cami Louie RN - 02/03/2024 1:22 PM EDT [...] EC for evaluation. Patient and daughter agreeable. [facility]10-10-2024 Miscellaneous Notes* Telephone Encounter - Cami Louie RN - 02/03/2024 1:22 PM EDT [...] Patient and daughter agreeable. documented in this encounterMemorial [facility]09-24-2024 Telephone encounter Note * Telephone Encounter [...] 30 days. Authorizing Provider: NELSON ROBERT APRN.CNP [facility]09-24-2024 Miscellaneous Notes* Telephone Encounter - Nelson [...] 18, 2024 9:25 AM documented in this encounterMemorial Health [facility]09-24-2024 Telephone encounter Note * Telephone Encounter [...] Marrero RN January 18, 2024 9:25 AM [facility]08-30-2024 Telephone encounter Note* Telephone Encounter - Yoseph Fall MD - 12/24/2023 9:48 AM EDT OK to refill as ordered Yoseph Fall MD [facility]08-30-2024 Miscellaneous Notes* Telephone Encounter - Yoseph [...] 24, 2023 9:26 AM documented in this encounterMemorial Health [facility]08-30-2024 Telephone encounter Note * Telephone Encounter [...] Giovanna Carrillo December 24, 2023 9:26 AM [facility] Work Phone: [phone] History of Present illness Narrative* Yoseph Fall [...] visit. Either the patient or their legal client relations representative has been informed of the [...] Pain: Chronic pain; is being weaned off Franklin 5-325 mg down to#32/month, taking 1 pill BID prn. Also uses Flexeril 10 mg BID prn. Worried pain will not be controlled on anything less than 2 norco perday. At times pain gets bad, having to use Tylenol. Wishes her Franklin would be increased. GERRY/Depression: Stable, still has [...] lung, unspecified site (HCC) 04/26/2003 Lung cancer CA (myocardial infarction) (HCC) 10-10 taken to [facility] heart stopped Obstructive chronic bronchitis with exacerbation [...] as directed. Dx: COPD J44.9 Nebulizer Access[place] [facility] [place] and supplies as needed PULSE OXIMETER [facility] Use as directed to check oxygen saturation level ammonium lactate (AMLACTIN) 12 % lotion Apply 1 application to affected area as needed for Dry Skin. losartan (COZAAR) 50 mg tablet Take 0.5 tablets by mouth once daily. OXYGEN, HOME THERAPY, 2.5 L/min by Nasal Cannula route continuous. Use as directred Disposable Gloves (DISPOSABLE LATEX-FREE GLOVES) [facility] [place] 1 Box once every [...] call Yoseph Fall MD documented in this encounterMemorial Health [facility]07-23-2024 Telephone encounter Note * Telephone Encounter - Yoseph Fall MD - 11/16/2023 1:32 PM EDT OK to refill as ordered Yoseph Fall MD [facility]07-23-2024 Miscellaneous Notes* Telephone Encounter - Yoseph Flal MD - 11/16/2023 1:32 PM EDT OK [...] 16, 2023 12:02 PM documented in this encounterMemorial Health [facility]07-23-2024 Telephone encounter Note * Telephone Encounter [...] Marrero RN November 16, 2023 12:02 PM [facility]07-15-2024 Telephone encounter Note* Telephone Encounter - [...] this decision on the coverage criteria for: [address]43 [place] Standard MEDD Prior Authorization Policy - HIGH RISK MEDICATIONS - CYCLOBENZAPRINE [facility]07-15-2024 Miscellaneous Notes* Telephone Encounter - Ban [...] drug. This restriction has been approved by [facility]. This restriction only applies to [...] this decision on the coverage criteria for: [address]17 ED[place] Standard MEDD Prior Authorization Policy - HIGH RISK MEDICATIONS - CYCLOBENZAPRINE documented in this encounterMemorial Health [facility]07-12-2024 Telephone encounter Note * Telephone Encounter - Iman Person APRN.CNP - 11/05/2023 12:07 PM EDT The following approved medication requests have been transmitted electronically. Requested Prescriptions Pending Prescriptions Disp Refills cyclobenzaprine (FLEXERIL) 10 mg tablet 60 tablet 0 Sig: Take 1 tablet by mouth two times a day as needed for muscle spasm. Iman Tannhof, PPA TEACHER.MARINE INSURANCE CLAIM EXAMINER [facility]07-12-2024 Miscellaneous Notes* Telephone Encounter - Iman Person APRN.AUSTIN - 11/05/2023 12:07 PM EDT The following approved medication requests have been transmitted electronically. Requested Prescriptions Pending Prescriptions Disp Refills cyclobenzaprine (FLEXERIL) 10 mg tablet 60 tablet 0 Sig: Take 1 tablet by mouth two times a day as needed for muscle spasm. Iman Person APRN.AUSTIN * Telephone Encounter - Richard Mora LPN - 11/05/2023 11:50 AM EDT Pt calling to get a refill on medication below. Pt never started Tizanadine. Pt takes medication below and this helps with muscle spasms. Please let pt know when this has been sentto the pharmacy. Richard oMra LPN The patient has been identified by [...] 05, 2023 11:51 AM documented in this encounterMemorial Health [facility]07-12-2024 Telephone encounter Note * Telephone Encounter [...] Mora LPN November 05, 2023 11:51 AM [facility]06-28-2024 Telephone encounter Note* Telephone Encounter - Brynn Watson LPN - 10/22/2023 2:21 PM EDT Phoned patient and went over notes from Dr Fall with understanding. Aware rx sent to pharmacy. [facility]06-28-2024 Miscellaneous Notes* Telephone Encounter - Brynn [...] Notify pt with providers decision. Uses [facility]. Naima Haines MA * Telephone Encounter [...] with cough. Please advise. documented in this encounterMemorial Health [facility]06-28-2024 Telephone encounter Note * Telephone Encounter - Yoseph Fall MD - 10/22/2023 2:14 PM EDT OK for another Zpak as ordered Yoseph Fall MD [facility]06-28-2024 Telephone encounter Note* Telephone Encounter - Naima Haines MA - 10/22/2023 1:09 PM EDT No fevers. She is coughing a little bit. The congestion has mostly cleared. She did get some improvement with the zpak she was given but doesn't feel that the infection is completely resolved. Please advise. Notify pt with providers decision. [facility]ses [facility]. Naima Haines MA [facility]06-28-2024 Telephone encounter Note* Telephone Encounter - Naima Haines MA - 10/22/2023 11:54 AM EDT Tried to reach pt, line picks up, can hear back ground noise but no one says anything. Will try again later. Naima Haines MA [facility]06-28-2024 Telephone encounter Note* Telephone Encounter - Yoseph Fall MD - 10/22/2023 11:47 AM EDT Did she get any better with the Zpak she was given in the ER? If so I would consider refill of that. If it did not help would use a different antibiotic. Yoseph Fall MD [facility]06-28-2024 Telephone encounter Note* Telephone Encounter - Naima Haines MA - 10/22/2023 10:26 AM EDT ER report attached. Scan on 10/18/2023 6:02 AM by Provider, MARY Howe: Consultation - Emergency Medicine [facility]06-28-2024 Telephone encounter Note* Telephone Encounter - Connor Velez - 10/22/2023 10:18 AM EDT Pt has requested that an antibiotic is called in for her. States she was just seen in the EmergencyRoom last week, however; is still having a discolored mucus with cough. Please advise. [facility]06-24-2024 Miscellaneous Notes* Telephone Encounter - Yoseph Fall MD - 10/18/2023 12:10 PM EDT OK to refill as ordered Yoseph Fall MD * Telephone Encounter - Cami Louie RN - 10/18/2023 9:46 AM EDT [...] 18, 2023 9:49 AM documented in this encounterMemorial Health [facility]06-24-2024 Telephone encounter Note * Telephone Encounter - Yoseph Fall MD - 10/18/2023 12:10 PM EDT OK to refill as ordered Yoseph Fall MD [facility]06-24-2024 Telephone encounter Note* Telephone Encounter - Cami Louie RN - 10/18/2023 9:46 AM EDT [...] Louie RN October 18, 2023 9:49 AM [facility]06-07-2024 Telephone encounter Note* Telephone Encounter - Naima Haines MA - 10/01/2023 1:48 PM EDT The following approved medication requests have been transmitted electronically. Requested Prescriptions Signed Prescriptions Disp Refills tiZANidine (ZANAFLEX) 4 mg tablet 90 tablet 5 Sig: Take 1 tablet by mouth every 8 hours as needed (muscle spasms). Authorizing Provider: YOSEPH FALL MA [facility]06-07-2024 Miscellaneous Notes* Telephone Encounter - Naima [...] Marrero RN - 10/01/2023 11:53 AM EDT Cpsqacus-Yr-Mjr calls to ask if provider would send in a different prescription than flexeril d/t having to pay for medication. Recommended contacting insurance to see what medication is covered and it was requested to just send something in as they can never get a hold of anyone at the insurance company. [facility] Marrero RN documented in this encounterMemorial Health [facility]06-07-2024 Telephone encounter Note * Telephone Encounter - Yoseph Fall MD - 10/01/2023 1:29 PM EDT OK for zanaflex as ordered Yoseph Fall MD [facility]06-07-2024 Telephone encounter Note* Telephone Encounter - Sukhi Marrero RN - 10/01/2023 11:53 AM EDT Nunxhvkx-Zd-Lzq calls to ask if provider would send in a different prescription than flexeril d/t having to pay for medication. Recommended contacting insurance to see what medication is covered and it was requested to just send something in as they can never get a hold of anyone at the insurance company. Pharmacy is [facility] Sukhi Marrero RN [facility]05-29-2024 Telephone encounter Note* Telephone Encounter - [...] 5 to 15 minutes Nelson Robert APRN.CNP [facility]05-29-2024 Miscellaneous Notes* Telephone Encounter - Nelson [...] Thank you. Louisa Nobles. documented in this encounterMemorial Health [facility]05-29-2024 Telephone encounter Note * Telephone Encounter [...] 11/23/2023 Please advise. Thank you. Louisa Nobles. [facility]05-23-2024 Telephone encounter Note* Telephone Encounter - Yoseph Fall MD - 09/16/2023 8:11 AM EDT OK to refill as ordered Yoseph Fall MD [facility]05-23-2024 Miscellaneous Notes* Telephone Encounter - Yoseph [...] Thank you. Louisa Nobles. documented in this encounterMemorial Health [facility]05-22-2024 Telephone encounter Note * Telephone Encounter - Iman Person APRN.CNP - 09/15/2023 7:09 PM EDT The following approved medication requests have been transmitted electronically. Requested Prescriptions Pending Prescriptions Disp Refills fluticasone (FLONASE) 50 mcg/actuation nasal spray 48 g 11 Sig: use 2 sprays in each nostril daily. Rinse mouth after use Iman Person APRN.CNP [facility]05-22-2024 Miscellaneous Notes* Telephone Encounter - Iman Person APRN.CNP - 09/15/2023 7:09 PM EDT The following approved medication requests have been transmitted electronically. Requested Prescriptions Pending Prescriptions Disp Refills fluticasone (FLONASE) 50 mcg/actuation nasal spray 48 g 11 Sig: use 2 sprays in each nostril daily. Rinse mouth after use Iman Person APRN.AUSTIN * Telephone Encounter - Essie Medina RN [...] primary care: 11/23/2023 Please advise. Thank you. Essei Medina RN. documented in this encounterMemorial Health [facility]05-22-2024 Telephone encounter Note * Telephone Encounter [...] 11/23/2023 Please advise. Thank you. Louisa Nobles. [facility]05-22-2024 Telephone encounter Note* Telephone Encounter - [...] Please advise. Thank you. Essie Medina RN. [facility]04-29-2024 History of Present illness Narrative* Yoseph [...] visit. Either the patient or their legal client relations representative has been informed of the [...] daily. Pain: uses Flexeril 10 mg daily, Franklin 5-325 mg 1 pill BID prn, taking [...] lung, unspecified site (HCC) 04/26/2003 Lung cancer CA (myocardial infarction) (HCC) 10-10 taken to [facility] heart stopped Obstructive chronic bronchitis with exacerbation [...] as directed. Dx: COPD J44.9 Nebulizer Accessories [facility] [place] and supplies as needed rOPINIRole (REQUIP) 0.25 mg tablet Take 1 tablet by mouth daily at bedtime. PULSE OXIMETER [facility] Use as directed to check oxygen [...] as directred Disposable Gloves (DISPOSABLE LATEX-FREE GLOVES) [facility] 1 Box once every [...] Nothing since 03/2012. Drug use: No [facility]AM[facility] Health Maintenance List BP Controlled (<130/80) [...] Past Histories independently gathered by the clinical call center support consultant and the remaining scribed note accurately describes my personal service to the patient. 11-20 minutes of time spent on phone call Yoseph Fall MD The documentation for this note was completed by Naima Haines MA acting as scribe for Yoseph Fall MD. August 23, 2023 2:19 PM. Naima Haines MA documented in this encounterMemorial Health [facility]04-02-2024 Miscellaneous Notes* Telephone Encounter - Yoseph [...] you. Brynn Watson LPN. documented in this encounterMemorial Health [facility]04-01-2024 History of Present illness Narrative* Yoseph [...] visit. Either the patient or their legal client relations representative has been informed of the [...] for hospital follow up. Pt admitted into [facility] on 07/20/23 and discharged on 07/22/23. Overall [...] days. Nicorette 2 mg gum, states her Vszpxcyy-vp-pdd was picking this up today. SUMMARY: -Pt discharged from [facility] on 07/22/23. Pt admitted on 07/20/23. -Admitted [...] anxiety, GERD and OA who presents to [facility] ER complaining of shortness of breath, [...] acute exacerbation of COPD withclinical evidence of gzjxa-pb-lwnswba hypoxic respiratory insufficiency likely due to recent [...] enlargement Borderline ECG Confirmed by Junito Madrid ([id number]), design editor CLARISSE RAMIREZ ([id number]) on 07/20/2023 1:47:04 PM Chest XR 07/20/23: [...] KB 30 S [facility] for [facility] of care. 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 Pt admitted on 07/20/23. -Admitted [...] anxiety, GERD and OA who presents to [facility] ER complaining of shortness of breath, [...] acute exacerbation of COPD withclinical evidence of exeos-pd-ybyvmym hypoxic respiratory insufficiency likely due to recent [...] enlargement Borderline ECG Confirmed by Junito Madrid ([id number]), design editor CLARISSE RAMIREZ ([id number]) on 07/20/2023 1:47:04 PM Chest XR 07/20/23: [...] KB 30 S [facility]. Do you have [...] home? Yes Medical records from recent hospitalization: [facility] Everywhere/[facility] records Sanjana Baca MA documented in this encounterMemorial [facility]03-28-2024 Discharge summary Author Jan Bolanos [facility] July 22, 2023 4:12pm Note Date/Time July 22, 2023 4:0 4pm [facility] Medical Records Department [address] [place] [address] Instructions for Home/Discharge Instructions 07/22/23 1603 MR#: [id number] Acct: [id number] Name: DENIA GONZALEZ Rep #:[id number] : 1955 68 From: Jan brennan MD [...] Care Provider: Yoseph Fall Consulting Providers: José Cnuningham Discharge Orders/Prescriptions Prescriptions: New levofloxacin 750 mg [...] DO; Dr. Yoseph Fall MD ~ Signed [facility] Work Phone: 1(256) 836-132403-28-2024 Discharge summary Author Jan Bolanos [facility] July 22, 2023 4:18pm Note Date/Time July 22, 2023 4:1 7pm [facility] Medical Records Department [address] [place] [address] Discharge Summary 07/22/231611 MR#: [id number] Acct: [id number] Name: DENIA GONZALEZ Rep #:[id number] : 1955 68 From: Jan brennan MD PCP: Dr. Yoseph Fall MD Status:AD M IN Location: [facility] [place] [facility] [id number] Providers Date of Admission: 07/20/23 Primary Care Physician: Dr. Yoseph Fall MD Reason For Visit: ACUTE EXACERBATION OF COPD WITH [id number] Diagnosis Discharge Diagnosis (1) COPD with acute [...] anxiety, GERD and OA who presents to [facility] ER complaining of shortness of breath, [...] exacerbation of COPD with clinical evidence of jlvzm-rj-pqawnyh hypoxic respiratory insufficiency likely due to recent [...] Self Care Charges/Coding Visit Charges Inpatient E&M: 61618 Disch Hosp >30min 07/22/23 1618 <Electronically signed by Jan Bolanos MD> Cosigner Signature (if applicable): CC: Dr. Yoseph Fall MD; Dr. Jan Bolanos MD~ Signed [facility] Work Phone: 1(867) 271-290503-28-2024 Progress note Author Jan Bolanos [facility] July 22, 2023 11:02am Note Date/Time July 22, 2023 11: 02am [facility] Medical Records Department [address] [place] [address] Progress Note - Hospitalist 07/22/23 1101 MR#: [id number] Acct: [id number] Name: DENIA GONZALEZ Rep #:[id number] : 1955 68 From: Jan brennan MD PCP: Dr. Yoseph Fall MD Status:AD M IN Location: [place] [address] Subjective Subjective Doing well, feels like she [...] DVT: Lovenox Charges/Coding Visit Charges Inpatient E&M: 28690 Subs Hosp L2 07/22/23 1102 <Electronically signed by Jan Bolanos MD> Cosigner Signature (if applicable): CC: ~ Signed [facility] Work Phone: 1(618) 549-224003-27-2024 Progress note Author Jan Bolanos [facility] July 21, 2023 10:28am Note Date/Time July 21, 2023 10: 25am [facility] Medical Records Department [address] [place] [address] Progress Note - Hospitalist 07/21/23 1013 MR#: [id number] Acct: [id number] Name: DENIA GONZALEZ Rep #:[id number] : 1955 68 From: Jan brennan MD PCP: Dr. Yoseph Fall MD Status:AD M IN Location: [place] [address] Subjective Subjective She feels about the same [...] 88.1 H, Lymph % (Auto) 8.8 L, Mineral %(Auto) 2.7, Eos % (Auto) 0.0, Baso [...] DVT: Lovenox Charges/Coding Visit Charges Inpatient E&M: 52038 Subs Hosp L2 07/21/23 1028 <Electronically signed by Jan Bolanos MD> Cosigner Signature (if applicable): CC: ~ Signed [facility] Work Phone: 1(476) 885-628903-26-2024 Discharge summary Author Dallas Mena [facility] July 20, 2023 6:49am Note Date/Time July 20, 2023 3:0 9am [facility] Medical Records Department [address] [place] [address] Emergency Department Summary 07/20/23 MR#: [id number] Acct: [id number] Name: DENIA GONZALEZ Rep #:[id number] : 1955 68 From: Dallas Mena MD PCP: Dr. Yoseph Fall MD Status:AD M IN Location: [place] [address] HPI History of Present Illness Chief Complaint: [...] % (Auto) 67.5 Lymph % (Auto) 23.7 Mineral % (Auto) 7.6 Eos % (Auto) 0.6 [...] rate of 128. No acute signs of CA or ischemia. Discharge Plan Triage Chief Complaint: [...] and wheezing. Disposition Disposition: Acute Care Hospital [facility] What to do if you have Problems For any increased pain, shortness of breath, bleeding, nausea or vomiting, chestpain, or any unexpected problems, contact your Primary Care Provider. Call [facility] ([phone]) or report to the closest Emergency Room. Call 911 if necessary. 07/20/23 0649 <Electronically signed by Dallas Mena MD> Cosigner Signature (if applicable): CC: Dr. Yoseph Fall MD ~ Signed [facility] Work Phone: 1(702) 125-583903-26-2024 Miscellaneous Notes* Telephone Encounter - Sanjana Baca MA - 07/20/2023 8:40 AM EDT Pt currently admitted into [facility] due to symptoms. Sanjana Baca MA * [...] LPN - 07/19/2023 8:33 AM EDT Pt's Giovanni BRASHERee, calls to reports pt has sx of [...] advise. Jennifer Hennessy LPN documented in this encounterMemorial Health [facility]03-26-2024 History and physical note Author José Smith [facility] July 20, 2023 4:55am Note Date/Time July 20, 2023 4:2 4am [facility] Medical Records Department [address] [place] [address] H&P Exam - Hospitalist 07/20/23 0406 MR#: [id number] Acct: [id number] Name: DENIA GONZALEZ Rep #:[id number] : 1955 68 From: José Abebe DO PCP: Dr. Yoseph Fall MD Status:AD M IN Location: [facility] [id number] HPI - General General Date of Admission: [...] anxiety, GERD and OA who presents to [facility] ER complaining of shortness of breath, [...] exacerbation of COPD with clinical evidence of bvush-ik-waaomfh hypoxic respiratory insufficiency likely due to recent viral URI in the setting of ongoing tobacco abuse and she was then admitted to the general medical floor forongoin care for stay that is expected to be greater than 48 hours. [facility] Home Medications albuterol sulfate 90 mcg/actuation aerosol [...] % (Auto) 67.5, Lymph % (Auto) 23.7, Mineral% (Auto) 7.6, Eos % (Auto) 0.6, Baso [...] needed nebulizers. Give Tylenol as needed for vjhi-tc-anprwfwk(level 1- 5/10) pain or fever. Continue Percocet prn for severe (level 6-10/10) pain. Tobacco cessation will be strongly encouraged with nicotine patch offeredto control cravings. 2. Viral URI likely triggering #1 - Check viral respiratory panel and placed oncontact and droplet precautions until confirmed negative. 3. Owcqh-jv-wvohzfw hypoxic respiratory insufficiency arising from #1 & [...] 55 minutes. Charges/Coding Visit Charges Inpatient E&M: 93409 Init Hosp L2 07/20/23 6094 <Electronically signed by José Cunningham DO> Cosigner Signature (if applicable): CC: Dr. José Cunningham DO; Dr. Yoseph Fall MD~ Signed [facility] Work Phone: 1(106) 919-423403-04-2024 Miscellaneous Notes* Telephone Encounter - Yoseph Fall MD - 06/28/2023 3:59 PM EST OK to refill as ordered Yoseph Fall MD documented in this encounterMemorial Health [facility]02-22-2024 Miscellaneous Notes* Telephone Encounter - Naima Haines Ma - 06/17/2023 11:12 AM EST Faxed. Naima Haines Ma * Telephone Encounter - Naima Haines Ma - 06/17/2023 9:58 AM EST Type of letter/form/fax request - Medical Necessity-incontinence supplies Form received from fax on 1 floor and placed on desk (Dr. Fall) for completion. Completed form needs to be faxed to [facility] at [phone]. Route to [place] when form completed for processing documented in this encounterMemorial Health [facility] Miscellaneous Notes* Telephone Encounter - Meenu [...] LPN - 06/14/2023 4:37 PM EST Covermymed SADIQ cmpleted for tiotropium renva DENIA CARLOS ([place]: [id number]) - [id number] Spiriva HandiHaler 18MCG capsules Status: PA Request Created: June 11, 2023 [id number] Sent: June 14, 2023 documented in this encounterMem[facility] Miscellaneous Notes* Telephone Encounter - Sanjana [...] call pt with reply. documented in this encounterMem[facility]16[facility]2024 Miscellaneous Notes* Telephone Encounter - Yoseph [...] you. Brynn Watson LPN. documented in this encounterMem[facility]12-05-2023 Miscellaneous Notes* Telephone Encounter - Padmini Abbott RN - 03/30/2023 4:17 PM EST Pt's significant other, Mike Gregg calling. Requesting PCP office to fax orders for pt's nebulizer ,compressor and accessories to [facility] at FAX #: [phone], along with recent OV note. States pt receives other equipment from them and they would like to use their services. States they have not heard from [facility] when orders were originally faxed to them. Faxed as requested. Padmini Abbott RN documented in this encounterMemorial [facility]11-22-2023 Miscellaneous Notes* Telephone Encounter - Roxanna [...] you. Roxanna Tineo LPN. documented in this encounterMem[facility]10-27-2023 Instructions* Patient Instructions* Sanjana Baca Ma - 02/19/2023 2:31 PM EDT Check with [employer] on RSV vaccine. documented in this encounterMemorial [facility]10-27-2023 History of Present illness Narrative* Yoseph [...] is currently being weaned down on her Franklin 5-325 mg, concerned about going any lower as she doesn't think her pain will be controlled. She is taking Franklin 5-325 mg 1 pill bid prn, getting #33/month, and Flexeril 10 mg BID prn. Franklin was decreased last visit from #35/month to [...] Agreeable to Flu shot today. Reports her [employer], may be able to give her the [...] and lung, unspecified site 04/26/2003 Lung cancer CA (myocardial infarction) (HCC) 10-10 taken to [facility] heart stopped Obstructive chronic bronchitis with exacerbation [...] instructed every 4 hours asneeded. PULSE OXIMETER [facility] Use as directed to check oxygen [...] as directed. Dx: COPD J44.9 Nebulizer Accessories [facility] [place] and supplies as needed Rknmbumyaiabl-WG-kqjaEKYxypp (MUCINEX FAST-MAX CONGEST-COUGH) 2.5-5-100 mg/5 mL liqd Take 10 mL by mouth three times daily as needed. OXYGEN, HOME THERAPY, 2.5 L/min by Nasal Cannula route continuous. Use as directred Disposable Gloves (DISPOSABLE LATEX-FREE GLOVES) [facility] [place] [place] Box once every [...] Vaccine(1) due on 12/25/2022 Covid-19 Vaccine(5 - 2022-24 season) due on 12/25/2022 DTaP,Tdap,Td Vaccine(2 - [...] classification (HCC) - ICD9: 496, ICD10: J44.9 - Continue current medication regimen. - Send Nebulizer supplies to [facility] 8. Gastroesophageal reflux disease, unspecified whether [...] Past Histories independently gathered by the clinical call center support consultant and the remaining scribed note accurately describes [...] PM. Sanjana Baca Ma documented in this encounterMemorial [facility]09-22-2023 Miscellaneous Notes* Telephone Encounter - Nelson Robert APRN.MARINE INSURANCE CLAIM EXAMINER - 01/15/2023 12:03 PM EDT The following [...] you. Sukhi Marrero RN documented in this encounterMemorial [facility]09-05-2023 Miscellaneous Notes* Telephone Encounter - Nelson [...] by mouth daily at bedtime. Nelson Robert APRN.[place] * Telephone Encounter - Mercedez Geronimo - 12/29/2022 12:32 PM EDT Pharmacy verified in Epic Patient has been identified by name and [...] Please advise. Mercedez Carrillo documented in this encounterMemorial [facility]08-17-2023 Miscellaneous Notes* Telephone Encounter - Meenu Hanks LPN - 12/10/2022 3:29 PM EDT Pt notfied Meenu Hanks LPN * Telephone Encounter - Yoseph Fall MD - 12/10/2022 2:38 PM EDT Order filed Yoseph Fall MD * Telephone Encounter - Brynn Watson LPN - 12/10/2022 12:09 PM EDT Patient daughter calling mother had sent to her to picking crew supervisor stool sample, no order in computer. Computer shows at last office visit Dr was asking patient if she would do IFOBT and no order was put in the computer. Pending order needs diagnosis. Call patient when order in place so can picking crew supervisor kit. Please advise documented in this encounterMemorial [facility]07-14-2023 Miscellaneous Notes* Telephone Encounter - Nelson [...] has one pill left. documented in this encounterMemorial [facility]05-09-2023 Miscellaneous Notes* Telephone Encounter - iMchelle Alvarez Ma - 09/01/2022 10:23 AM EDT [...] them run with specific NDC code. NDC: [id number] NDC: [id number] Called amee and they ran medication which is still showing Pa needed with NDC codes used. Amee aware they will need to contact fina. Tried calling patient to update her but no answer and mailbox was full. Michelle Alvarez Ma * Telephone Encounter - Michelle Alvarez Ma - 08/26/2022 3:31 PM EDT Called fina to check on status of PA for flexeril and it did not go through covermymeds. Did PAover the phone with rep PA # [id number] Michelle Alvarez Ma * Telephone Encounter - Michelle Alvarez Ma - 08/21/2022 3:46 PM EDT PA have never been completed for either med which needs done first before appeal letter. Completed Electronic PA for Advair was approved and verified with drughunter goes through. Tried calling patientbut no answer and vm full. PA completed through covermymeds for flexeril [place]: [id number] Michelle Alvarez Ma * Telephone Encounter - [...] know the fax number. Patient's insurance is [employer]. Asked patient what the phone number was for [employer] and she gave me a phone number that was not for [employer]. I asked if this was aprior authorization that was needed and she said she needed a letter. Please contact patient with any other questions. No chief complaint on file. Patient has been identified by name and birthdate. Duration of symptoms: N/A Person calling: self Call patient at: at home [phone] (home) [phone] (cell) Was an appointment scheduled: No Closing statement: Results or non-symptom based questions: Thank you for calling [facility], your call will be returned within the next business day. Orly Stacy documented in this encounterMemorial Health [facility]03-10-2023 Miscellaneous Notes* Telephone Encounter - Naima Haines Ma - 07/03/2022 10:32 AM EST Faxed. Naima Haines Ma * Telephone Encounter - Naima Haines Ma - 07/02/2022 9:09 AM EST Type of letter/form/fax request - Medical Necessity-Incontinence supplies Form received from fax on [address] Fall's desk for completion. Completed form needs to be faxed to [facility] at [phone]. Route to [place] when form completed for processing documented in this encounterMemorial Health [facility]03-06-2023 Miscellaneous Notes* Telephone Encounter - Nelson [...] -TWO TABS Q 4HOURS PRN Nelson Robert APRN.CNP * Telephone Encounter - Orly Stacy - [...] pharmacy. No need to notify patient. Orly Tawanna documented in this encounterMemorial Health [facility]02-13-2023 Miscellaneous Notes* Telephone Encounter - Nelson [...] Not applicable Please advise. Thank you. Essie Medina, RN documented in this encounterMemorial [facility]01-20-2023 Miscellaneous Notes* Telephone Encounter - Yoseph [...] Date of Last Labs: documented in this encounterMemorial [facility]01-10-2023 Miscellaneous Notes* Telephone Encounter - Nelson Robert APRN.CNP - 05/05/2022 1:29 PM EST The following [...] pharmacy. No need to notify patient. Fawn Ahumada Pss documented in this encounterMemorial Health [facility]01-06-2023 History of Present illness Narrative* Yoseph [...] is currently being weaned down on her Franklin 5-325 mg. Does not think shecan go any lower on the Franklin. Pt on current regimen of Franklin 5-325 mg taking 1 tab po bid [...] and lung, unspecified site 04/26/2003 Lung cancer CA (myocardial infarction) (HCC) 10-10 taken to [facility] heart stopped Obstructive chronic bronchitis with exacerbation [...] instructed every 4 hours asneeded. PULSE OXIMETER [facility] Use as directed to check oxygen [...] Accessories misc Mask and supplies as needed Spcbejqbdtoxu-SK-zftkGINskgo (MUCINEX FAST-MAX CONGEST-COUGH) 2.5-5-100 mg/5 mL liqd Take 10 mL by mouth three times daily as needed. OXYGEN, HOME THERAPY, 2.5 L/min by Nasal Cannula route continuous. Use as directred Disposable Gloves (DISPOSABLE LATEX-FREE GLOVES) [facility] [place] [place] Box once every [...] Past Histories independently gathered by the clinical call center support consultant and the remaining scribed note accurately describes my personal service to the patient. 5-10 minutes of time spent on phone call Yoseph Fall MD The documentation for this note was completed by Naima Haines Ma acting as scribe for Yoseph Fall MD. May 01, 2022 2:41 PM. Naima Haines Ma documented in this encounterMemorial Health [facility]12-27-2022 Miscellaneous Notes* Telephone Encounter - Yoseph [...] up with PCP please. documented in this encounterMemorial Health [facility]11-04-2022 Miscellaneous Notes* Telephone Encounter - Falguni [...] file order for oxygen and fax to [facility] in [place]. This nurse does not see order in computer and it appears PCP has ordered oxygen in the past. Please call patient at [phone] when this has been completed or if there are any issues. documented in this encounterMemorial Health [facility]10-28-2022 Procedure note* MUNA Cutler - 02/20/2022 [...] TIME: 1:25 PM Comment: documented in this encounterMemorial Health [facility]10-28-2022 History of Present illness Narrative* MUNA Cutler - 02/20/2022 1:22 PM EDT PULM FUNCTION SMARTBLOCK: Provider: Michelle Guzmán MD Assisting Tech: MUNA Cutler Oximetry - Ambulation: 1 documented in this encounterMemorial Health [facility]09-27-2022 Miscellaneous Notes* Telephone Encounter - Nelson [...] patient. Fina Mora Pss documented in this encounterMemorial Health [facility]09-15-2022 Miscellaneous Notes* Telephone Encounter - Falguni Patton LPN - 01/08/2022 8:39 AM EDT Noted, thank you! Falguni Patton LPN * Telephone Encounter - Mini Pineda RN - 01/08/2022 8:31 AM EDT Bettie with [facility] calling in. States pt. needs to re-qualify for home O2. Pt. has not seen a Supervisor Electronics Inspection for a while (former pt. of Dr. Huertas). This nurse instructed Bettie to have pt.call to set up consult/ appt with Dr. Guzmán. Bettie will do so. Mini Pineda, RN documented in this encounterMemorial Health [facility]08-25-2022 Miscellaneous Notes* Telephone Encounter - Naima [...] you. Cami Louie RN documented in this encounterMemorial Health [facility]07-25-2022 Miscellaneous Notes* Telephone Encounter - Nelson Robert APRN.MARINE INSURANCE CLAIM EXAMINER - 11/17/2021 9:56 AM EDT Approved. PDMP [...] refill: 10/17/2021 * Telephone Encounter - Denia Carrillo - 11/17/2021 8:45 AM EDT Patient has [...] patient. Denia Ariza Pss documented in this encounterMemorial Health [facility]06-24-2022 History of Present illness Narrative* Yoseph [...] is currently being weaned down on her Franklin 5-325 mg. Pt on current regimen of Franklin 5-325 mg taking 1 tab po bid [...] and lung, unspecified site 2003 Lung cancer CA (myocardial infarction) (HCC) 10-10 taken to [facility] heart stopped Obstructive chronic bronchitis with exacerbation [...] as needed for muscle spasm. PULSE OXIMETER [facility] Use as directed to check oxygen [...] as directed. Dx: COPD J44.9 Nebulizer Accessories [facility] Mask and supplies as needed Kazjwwuwqmuro-HK-appoZHUvauy (MUCINEX FAST-MAX CONGEST-COUGH) 2.5-5-100 mg/5 mL liqd Take 10 mL by mouth three times daily as needed. OXYGEN, HOME THERAPY, 2.5 L/min by Nasal Cannula route continuous. Use as directred Disposable Gloves (DISPOSABLE LATEX-FREE GLOVES) [facility] [place] [place] Box once every [...] Past Histories independently gathered by the clinical call center support consultant and the remaining scribed note accurately describes my personal service to the patient. Yoseph Fall MD The documentation for this note was completed by Naima Haines Ma acting as scribe for Yoseph Fall MD. October 17, 2021 2:02 PM. Naima Haines Ma documented in this encounterMemorial Health [facility]06-07-2022 Miscellaneous Notes* Telephone Encounter - Naima [...] you. Richard Mora LPN documented in this encounterMemorial Health [facility]05-23-2022 Miscellaneous Notes* Telephone Encounter - Yoseph [...] patient. Jennifer Hennessy LPN documented in this encounterMemorial Health [facility]05-04-2022 Miscellaneous Notes* Telephone Encounter - Nelson [...] provider send a new prescription to [facility]. Pharmacy won't fill current prescription. Date [...] you. Sukhi Marrero RN documented in this encounterMemorial Health [facility]04-25-2022 Miscellaneous Notes* Telephone Encounter - Naima Haines Ma - 08/18/2021 2:48 PM EDT The following approved medication requests have been transmitted electronically. Signed Prescriptions Disp Refills HYDROcodone-acetaminophen (NORCO) 5-325 mg per tablet 40 tablet 0 Sig: Take 1 tablet by mouth twice daily as needed for pain for up to 30 days. LEROY Class: C-II LENY: No Authorizing Provider: YOSEHP FALL Ma * Telephone Encounter - Yoseph [...] you. Padmini Abbott RN documented in this encounterMemorial Health [facility]03-07-2017 History of Past illness Narrative* Problem [...] - Not done as it will not change management expert (same duration of ABx treatment) Cholelithiasis with [...] 06/24/2016 - Decreased Flatulence - [facility] [place] [facility] was normal (report available only) Plan: [...] of this encounter (statuses as of 08/01/2021) [facility]03[facility] History of Past illness Narrative* Problem [...] - Not done as it will not change management expert (same duration of ABx treatment) Cholelithiasis with [...] 06/24/2016 - Decreased Flatulence - [facility] [place] [facility] was normal (report available only) Plan: [...] of this encounter (statuses as of 08/18/2021) [facility] History of Past illness Narrative* Problem [...] - Not done as it will not change management expert (same duration of ABx treatment) Cholelithiasis with [...] 06/24/2016 - Decreased Flatulence - [facility] [place] [facility] was normal (report available only) Plan: [...] of this encounter (statuses as of 08/27/2021) [facility] History of Past illness Narrative* Problem [...] - Not done as it will not change management expert (same duration of ABx treatment) Cholelithiasis with [...] 06/24/2016 - Decreased Flatulence - [facility] at [place] [facility] was normal (report available only) Plan: [...] of this encounter (statuses as of 09/15/2021) [facility] History of Past illness Narrative* Problem [...] - Not done as it will not change management expert (same duration of ABx treatment) Cholelithiasis with [...] 06/24/2016 - Decreased Flatulence - [facility] [place] [facility] was normal (report available only) Plan: [...] of this encounter (statuses as of 09/30/2021) [facility] History of Past illness Narrative* Problem [...] - Not done as it will not change management expert (same duration of ABx treatment) Cholelithiasis with [...] 06/24/2016 - Decreased Flatulence - [facility] [place] [facility] was normal (report available only) Plan: [...] of this encounter (statuses as of 10/17/2021) [facility] History of Past illness Narrative* Problem [...] - Not done as it will not change management expert (same duration of ABx treatment) Cholelithiasis with [...] 06/24/2016 - Decreased Flatulence - [facility] [place] [facility] was normal (report available only) Plan: [...] of this encounter (statuses as of 11/17/2021) [facility] of Past illness Narrative* Problem [...] - Not done as it will not change management expert (same duration of ABx treatment) Cholelithiasis with [...] 06/24/2016 - Decreased Flatulence - [facility] [place] [facility] was normal (report available only) Plan: [...] of this encounter (statuses as of 12/18/2021) [facility] of Past illness Narrative* Problem [...] - Not done as it will not change management expert (same duration of ABx treatment) Cholelithiasis with [...] 06/24/2016 - Decreased Flatulence - [facility] at [place] [facility] was normal (report available only) Plan: [...] of this encounter (statuses as of 01/08/2022) [facility] of Past illness Narrative* Problem [...] - Not done as it will not change management expert (same duration of ABx treatment) Cholelithiasis with [...] 06/24/2016 - Decreased Flatulence - [facility] [place] [facility] was normal (report available only) Plan: [...] of this encounter (statuses as of 01/13/2022) [facility] of Past illness Narrative* Problem [...] - Not done as it will not change management expert (same duration of ABx treatment) Cholelithiasis with [...] 06/24/2016 - Decreased Flatulence - [facility] at [place] [facility] was normal (report available only) Plan: [...] of this encounter (statuses as of 01/20/2022) [facility] of Past illness Narrative* Problem [...] - Not done as it will not change management expert (same duration of ABx treatment) Cholelithiasis with [...] 06/24/2016 - Decreased Flatulence - [facility] at [place] [facility] was normal (report available only) Plan: [...] of this encounter (statuses as of 02/20/2022) [facility] of Past illness Narrative* Problem [...] - Not done as it will not change management expert (same duration of ABx treatment) Cholelithiasis with [...] 06/24/2016 - Decreased Flatulence - [facility] at [place] [facility] was normal (report available only) Plan: [...] of this encounter (statuses as of 02/27/2022) [facility] of [facility] illness Narrative* Problem [...] - Not done as it will not change management expert (same duration of ABx treatment) Cholelithiasis with [...] 06/24/2016 - Decreased Flatulence - [facility] at [place] [facility] was normal (report available only) Plan: [...] of this encounter (statuses as of 04/26/2022) [facility] of [facility] illness Narrative* Problem [...] - Not done as it will not change management expert (same duration of ABx treatment) Cholelithiasis with [...] 06/24/2016 - Decreased Flatulence - [facility] at [place] [facility] was normal (report available only) Plan: [...] of this encounter (statuses as of 05/02/2022) [facility] of [facility] illness Narrative* Problem [...] - Not done as it will not change management expert (same duration of ABx treatment) Cholelithiasis with [...] 06/24/2016 - Decreased Flatulence - [facility] at [place] [facility] was normal (report available only) Plan: [...] of this encounter (statuses as of 05/05/2022) [facility] of [facility] illness Narrative* Problem [...] - Not done as it will not change management expert (same duration of ABx treatment) Cholelithiasis with [...] 06/24/2016 - Decreased Flatulence - [facility] at [place] [facility] was normal (report available only) Plan: [...] of this encounter (statuses as of 05/15/2022) [facility] of [facility] Narrative* Problem [...] - Not done as it will not change management expert (same duration of ABx treatment) Cholelithiasis with [...] 06/24/2016 - Decreased Flatulence - [facility] at [place] [facility] was normal (report available only) Plan: [...] of this encounter (statuses as of 06/08/2022) [facility] Narrative* Problem [...] - Not done as it will not change management expert (same duration of ABx treatment) Cholelithiasis with [...] 06/24/2016 - Decreased Flatulence - [facility] at [place] [facility] was normal (report available only) Plan: [...] of this encounter (statuses as of 06/29/2022) [facility] Narrative* Problem [...] - Not done as it will not change management expert (same duration of ABx treatment) Cholelithiasis with [...] 06/24/2016 - Decreased Flatulence - [facility] at [place] [facility] was normal (report available only) Plan: [...] of this encounter (statuses as of 07/03/2022) [facility] Narrative* Problem [...] - Not done as it will not change management expert (same duration of ABx treatment) Cholelithiasis with [...] 06/24/2016 - Decreased Flatulence - [facility] at [place] [facility] was normal (report available only) Plan: [...] of this encounter (statuses as of 09/01/2022) [facility] of [facility] illness Narrative* Problem [...] - Not done as it will not change management expert (same duration of ABx treatment) Cholelithiasis with [...] 06/24/2016 - Decreased Flatulence - [facility] at [place] [facility] was normal (report available only) Plan: [...] of this encounter (statuses as of 11/06/2022) [facility] illness Narrative* Problem [...] - Not done as it will not change management expert (same duration of ABx treatment) Cholelithiasis with [...] 06/24/2016 - Decreased Flatulence - [facility] at [place] [facility] was normal (report available only) Plan: [...] of this encounter (statuses as of 11/06/2022) [facility] Narrative* Problem [...] - Not done as it will not change management expert (same duration of ABx treatment) Cholelithiasis with [...] 06/24/2016 - Decreased Flatulence - [facility] at [place] [facility] was normal (report available only) Plan: [...] of this encounter (statuses as of 12/29/2022) [facility] Narrative* Problem [...] - Not done as it will not change management expert (same duration of ABx treatment) Cholelithiasis with [...] 06/24/2016 - Decreased Flatulence - [facility] at [place] [facility] was normal (report available only) Plan: [...] of this encounter (statuses as of 01/15/2023) [facility] Narrative* Problem [...] - Not done as it will not change management expert (same duration of ABx treatment) Cholelithiasis with [...] 06/24/2016 - Decreased Flatulence - [facility] at [place] [facility] was normal (report available only) Plan: [...] of this encounter (statuses as of 01/30/2023) [facility] Narrative* Problem [...] - Not done as it will not change management expert (same duration of ABx treatment) Cholelithiasis with [...] 06/24/2016 - Decreased Flatulence - [facility] at [place] [facility] was normal (report available only) Plan: [...] of this encounter (statuses as of 02/19/2023) [facility]03-07[facility]2017 History of Past illness Narrative* Problem [...] - Not done as it will not change management expert (same duration of ABx treatment) Cholelithiasis with [...] 06/24/2016 - Decreased Flatulence - [facility] at [place] [facility] was normal (report available only) Plan: [...] of this encounter (statuses as of 03/17/2023) [facility]2017 History of Past illness Narrative* Problem [...] - Not done as it will not change management expert (same duration of ABx treatment) Cholelithiasis with [...] 06/24/2016 - Decreased Flatulence - [facility] at [place] [facility] was normal (report available only) Plan: [...] of this encounter (statuses as of 03/31/2023) [facility]03-07-2017 History of Past illness Narrative* Problem [...] - Not done as it will not change management expert (same duration of ABx treatment) Cholelithiasis with [...] 06/24/2016 - Decreased Flatulence - [facility] at [place] [facility] was normal (report available only) Plan: [...] of this encounter (statuses as of 06/11/2023) [facility]-07[facility]2017 History of Past illness Narrative* Problem [...] - Not done as it will not change management expert (same duration of ABx treatment) Cholelithiasis with [...] 06/24/2016 - Decreased Flatulence - [facility] at [place] [facility] was normal (report available only) Plan: [...] of this encounter (statuses as of 06/15/2023) [facility]2017 History of Past illness Narrative* Problem [...] - Not done as it will not change management expert (same duration of ABx treatment) Cholelithiasis with [...] 06/24/2016 - Decreased Flatulence - [facility] at [place] [facility] was normal (report available only) Plan: [...] of this encounter (statuses as of 06/16/2023) [facility]2017 History of Past illness Narrative* Problem [...] - Not done as it will not change management expert (same duration of ABx treatment) Cholelithiasis with [...] 06/24/2016 - Decreased Flatulence - [facility] at [place] [facility] was normal (report available only) Plan: [...] of this encounter (statuses as of 06/17/2023) [facility]2017 History of Past illness Narrative* Problem [...] - Not done as it will not change management expert (same duration of ABx treatment) Cholelithiasis with [...] 06/24/2016 - Decreased Flatulence - [facility] at [place] [facility] was normal (report available only) Plan: [...] of this encounter (statuses as of 06/21/2023) [facility]2017 History of Past illness Narrative* Problem [...] - Not done as it will not change management expert (same duration of ABx treatment) Cholelithiasis with [...] 06/24/2016 - Decreased Flatulence - [facility] at [place] [facility] was normal (report available only) Plan: [...] of this encounter (statuses as of 06/28/2023) [facility]2017 History of Past illness Narrative* Problem [...] - Not done as it will not change management expert (same duration of ABx treatment) Cholelithiasis with [...] 06/24/2016 - Decreased Flatulence - [facility] at [place] [facility] was normal (report available only) Plan: [...] of this encounter (statuses as of 07/20/2023) [facility]2017 History of Past illness Narrative* Problem [...] - Not done as it will not change management expert (same duration of ABx treatment) Cholelithiasis with [...] 06/24/2016 - Decreased Flatulence - [facility] at [place] [facility] was normal (report available only) Plan: [...] of this encounter (statuses as of 07/26/2023) [facility]2017 History of Past illness Narrative* Problem [...] - Not done as it will not change management expert (same duration of ABx treatment) Cholelithiasis with [...] 06/24/2016 - Decreased Flatulence - [facility] at [place] [facility] was normal (report available only) Plan: [...] of this encounter (statuses as of 07/27/2023) [facility] History of Past illness Narrative* Problem [...] - Not done as it will not change management expert (same duration of ABx treatment) Cholelithiasis with [...] 06/24/2016 - Decreased Flatulence - [facility] at [place] [facility] was normal (report available only) Plan: [...] of this encounter (statuses as of 08/06/2023) [facility] Author Riley Jeff [facility] Note Date/Time September 29, 2024 4:33a m [facility] Medical Records Department [address] [place] [address] Emergency Department Summary 09/29/24 MR#: [id number] Acct: [id number] Name: DENIA GONZALEZ Rep #:[id number] : 1955 69 From: Riley Jeff DO [...] Secondary to that she presents for evaluation [facility] Medical History RLS (restless legs syndrome) [...] 78.5 H Lymph % (Auto) 13.2 L Mineral % (Auto) 6.9 Eos % (Auto) 0.7 [...] of an acute cardiopulmonary abnormality. Reading Location: [facility] Chest x-ray as interpreted by the emergency medicine physician reveals no acute infiltrate pneumothorax or pleural effusion Management Discussion w/another healthcare provider: Hospitalist Discharge Plan Dx/Rx/DC Orders Clinical Impression: COPD with acute exacerbation, Benign essential hypertension, Anxiety and depression Disposition Disposition: Acute Care Hospital [facility] What to do if you have Problems For any increased pain, shortness of breath, bleeding, nausea or vomiting, chestpain, or any unexpected problems, contact your Primary Care Provider. Call [facility] ([phone]) or report to the closest Emergency Room. Call 911 if necessary. 09/29/24 0649 <Electronically signed by Riley Jeff DO> Cosigner Signature (if applicable): CC: Dr. Yoseph Fall MD ~ Signed [facility] Work Phone: Discharge summary Author Alessandro Palma [facility] Note Date/Time October 09, 2024 3:58 pm [facility] Medical Records Department [address] [place] [address] Instructions for Home/Discharge Instructions 10/09/24 1542 MR#: [id number] Acct: [id number] Name: DENIA GONZALEZ Rep #:[id number] : 1955 69 From: Alessandro Liu PCP: [...] can be placed): Home Health Service 10/09/24 1558<Electronically signed by Alessandro Palma MD>Alessandro Palma MD CC: Dr. Dionne Porter MD; Dr. Yoseph Fall MD; Dr. Junito Madrid MD; Dr. Lynne Schafer MD; Dr. Jan Bolanos MD ~ Signed [facility] Work Phone: Discharge summary Author Alessandro Palma [facility] Note Date/Time October 09, 2024 4:06 pm [facility] Medical Records Department [address] [place] [address] Discharge Summary 10/09/24 1558 MR#: [id number] Acct: [id number] Name: DENIA GONZALEZ Rep #:[id number] : 1955 69 From: Alessandro Liu PCP: Dr. Yoseph Fall MD Status:AD M IN Location: [place] [id number] Providers Date of Admission: 09/29/24 Date of Discharge: 10/09/24 Primary Care Physician: Dr. Yoseph Fall MD Consultations 10/02/24 09:21 Consult: Cardiology Routine Consulting Provider: Junito Madrid Reason for Consult: New afib RVR EMERGENT Consult: No MD Notified: Yes Date Notified: 10/02/24 Time Notified: 09:25 Method of Notification: Text Reason For Visit: [...] mg twice daily. * Discussed with the cat scan technologist Dr. Hopkins today. Discharge on verapamil and [...] 86.9 H, Lymph % (Auto) 6.9 L, Mineral %(Auto) 5.3, Eos % (Auto) 0.0, Baso [...] Health Service Charges/Coding Visit Charges Inpatient E&M: 80370 Disch Hosp >30min 10/09/24 1606 <Electronically signed by Alessandro Palma MD> Cosigner Signature (if applicable): CC: Dr. Yoseph Fall MD; Dr. Alessandro Palma MD~ Signed [facility] Work Phone: Discharge summary Author [facility] Note Date/Time December 30, 2024 11:[address] [place] [address] Health System Medical Records Department [address] [place] [address] Instructions for Home/Discharge Instructions 12/30/24 1141 MR#: [id number] Acct: [id number] Name: DENIA GONZALEZ Rep #:[id number] : 1955 69 From: Lynne Schafer MD PCP: Dr. Yoseph Fall MD Status:AD M IN Discharge Instructions DC O2, CPAP, BIPAP needs Home O2 Discharge instructions: Yes Type of respiratory needs?: Oxygen Oxygen frequency: Continuous Continuous oxygen liters per minute: 3 Dressing / Incision Call your doctor if you observe: Fever of 101 or Higher, Shortness of breath, Dizziness, Swelling in the ankles, Chest pain and Increased palpitations (irregular heartbeat) Follow Up Care Test Results: Test results from this visit will be discussed in further detail at your follow- up appointment, if applicable. Discharge Plan Admission Admit Date/Time: 12/26/24 20:00 Primary Reason for Your Visit: COPD exacerbation, acute on chronic anemia Attending Provider: Lynne Schafer Primary Care Provider: Yoseph Fall Consulting Providers: Dionne Porter; Stacy Jha; Alessandro Palma; Za,Kyle; Elma Mendez; Mercedez Joseph; Jackie Henry Instructions Patient Instructions: Anemia, COPD Controlled Breathing Dc Discharge Orders/Prescriptions Prescriptions: New pantoprazole 40 mg tablet,delayed release (DR/EC) 40 mg PO BID Qty: 60 2RF prednisone 20 mg tablet 40 mg PO DAILY Qty: 10 0RF verapamil 180 mg Capsule,Ext Rel. 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 hold per GI, until 01/02/2025 Rx Instructions: Discontinue if platelet count drops less than 50,000 or hemoglobin less than 8 g% Discontinued omeprazole 20 MG capsule 20 mg PO DAILY Patient Comments: ACID REFLUX MEDICATION Referrals / Follow Up: Yoseph Fall MD [Primary Care Provider] - Within 1 Week Kyle Mendenhall DO [Med Staff - Active Staff] - Within 1 Week Disposition Disposition (needs filled in before D/C Order can be placed): Home Health Service 12/30/24 1142<Electronically signed by Lynne Schafer MD>Lynne Schafer MD CC: STEFANIE Mendez; STEFANIE Jha; STEFANIE Joseph; Dr. Dionne Porter MD; Dr. Yoseph Fall MD; Dr. Alessandro Palma MD;SADIQ Paez; Kyle Friend, DO ~ Signed [facility] Work Phone: Evaluation note* Diagnosis Essential hypertension, benign- Primary Elevated glucose Other abnormal glucose documented [facility] this encounter [facility] Diagnosis Chronic low back pain with sciatica, sciatica laterality unspecified, unspecified back pain laterality documented [facility] this encounter [facility]* Diagnosis Chronic obstructive pulmonary disease, unspecified COPD type (HCC) documented [facility] this encounter [facility] Diagnosis Chronic obstructive pulmonary disease, unspecified COPD type (HCC)- Primary Chronic low back pain with sciatica, sciatica laterality unspecified, unspecified back pain laterality Essential hypertension, benign Uncomplicated asthma, unspecified asthma severity, unspecified whether persistent Generalized anxiety disorder documented [facility] this encounter [facility]* Diagnosis Chronic low back pain with sciatica, sciatica laterality unspecified, unspecified back pain laterality documented [facility] Diagnosis Chronic obstructive pulmonary disease, unspecified COPD type (HCC)- Primary documented [facility] this encounter [facility]* Diagnosis Chronic low back pain with sciatica, sciatica laterality unspecified, unspecified back pain laterality documented [facility] Diagnosis Chronic obstructive pulmonary disease, unspecified COPD type (HCC) [facility]* Diagnosis Stage 3 severe COPD by GOLD classification (HCC)- Primary Chronic respiratory failure with hypoxia (HCC) Chronic respiratory failure [facility] Diagnosis Stage 3 severe COPD by GOLD classification (HCC)- Primary Chronic low back pain with sciatica, sciatica laterality unspecified, unspecified back pain laterality Chronic respiratory failure with hypoxia (HCC) Chronic respiratory failure Essential hypertension, benign Generalized anxiety disorder Tobacco use disorder documented [facility] this encounter [facility]* Diagnosis Chronic obstructive pulmonary disease, unspecified COPD type (HCC) Uncomplicated asthma, unspecified asthma severity, unspecified whether persistent [facility]* Diagnosis Esophageal reflux [facility]* Diagnosis Generalized osteoarthrosis, involving multiple sites [facility] Diagnosis Generalized osteoarthrosis, involving multiple sites [facility]* Diagnosis Screening for colon cancer- Primary Special screening for malignant neoplasms, colon documented [facility] this encounter [facility]* Diagnosis Chronic low back pain with sciatica, sciatica laterality unspecified, unspecified back pain laterality- Primary Generalized osteoarthrosis, involving multiple sites Generalized anxiety disorder Depression, unspecified depression type Essential hypertension, benign Elevated glucose Other abnormal glucose Stage 3 severe COPD by GOLD classification ([facility]) Gastroesophageal reflux disease, unspecified whether esophagitis present Chronic obstructive pulmonary disease, unspecified COPD type ([facility]) Uncomplicated asthma, unspecified asthma severity, unspecified whether persistent Tobacco use disorder Need for influenza vaccination Need for prophylactic vaccination and inoculation against influenza Encounter for medication monitoring Encounter for therapeutic drug monitoring [facility]* Diagnosis Thrush, oral Candidiasis of mouth documented in this encounter [facility] note* Diagnosis Encounter for screening mammogram for breast cancer documented in this encounter [facility] note* Diagnosis Onset Date Resolution Status COPD (chronic obstructive pulmonary disease) acute Hypoxia acute Respiratory insufficiency ac [place] URI with cough acute COPD with acute exacerbation [facility] Work Phone: Evaluation note* Diagnosis Obstructive chronic bronchitis with exacerbation (HCC)- Primary Obstructive chronic bronchitis with exacerbation Stage 3 severe COPD by GOLD classification ([facility]) Cigarette smoker Tobacco use disorder Chronic respiratory failure with hypoxia (HCC) Chronic respiratory failure [facility]* Diagnosis Stage 3 severe COPD by GOLD classification (HCC)- Primary Essential hypertension, benign Cigarette smoker Tobacco use disorder Generalized anxiety disorder Chronic low back pain with sciatica, sciatica laterality unspecified, unspecified back pain laterality documented in this encounter [facility] note* Diagnosis Chronic low back pain with sciatica, sciatica laterality unspecified, unspecified back pain laterality [facility]* Diagnosis Chronic low back pain with sciatica, sciatica laterality unspecified, unspecified back pain laterality Tobacco use disorder [facility]* Diagnosis Bronchitis Bronchitis, not specified as acute or chronic [facility]* Diagnosis Generalized osteoarthrosis, involving multiple sites [facility]* Diagnosis Chronic low back pain with sciatica, sciatica laterality unspecified, unspecified back pain laterality [facility]* Diagnosis Stage 3 severe COPD by GOLD classification ([facility])- Primary Generalized osteoarthrosis, involving multiple sites Chronic low back pain with sciatica, sciatica laterality unspecified, unspecified back pain laterality Essential hypertension, benign Tobacco use disorder Dysthymic disorder [facility]* Diagnosis Chronic low back pain with sciatica, sciatica laterality unspecified, unspecified back pain laterality [facility]* Diagnosis Chronic low back pain with sciatica, sciatica laterality unspecified, unspecified back pain laterality Chronic obstructive pulmonary disease, unspecified COPD type (HCC) documented in this encounter [facility] note* Diagnosis Stage 3 severe COPD by GOLD classification ([facility]) documented in this encounter [facility] note* Diagnosis Chronic low back pain with sciatica, sciatica laterality unspecified, unspecified back pain laterality [facility]* Diagnosis Oral infection- Primary Other and unspecified diseases of the oral soft tissues documented in this encounter [facility] note* Diagnosis Chronic low back pain with sciatica, sciatica laterality unspecified, unspecified back pain laterality- Primary Essential hypertension, benign Generalized anxiety disorder Depression, unspecified depression type Gastroesophageal reflux disease without esophagitis Esophageal reflux documented in this encounter [facility] note* Diagnosis Chronic low back pain with sciatica, sciatica laterality unspecified, unspecified back pain laterality Thrush, oral Candidiasis of mouth [facility]* Diagnosis Generalized osteoarthrosis, involving multiple sites documented in this encounter [facility] note* Diagnosis Encounter for screening mammogram for breast cancer [facility]* Diagnosis Chronic low back pain with sciatica, sciatica laterality unspecified, unspecified back pain laterality [facility]* Diagnosis Esophageal reflux [facility]* Diagnosis Chronic obstructive pulmonary disease, unspecified COPD type (HCC)- Primary Chronic low back pain with sciatica, sciatica laterality unspecified, unspecified back pain laterality Essential hypertension, benign Generalized anxiety disorder Depression, unspecified depression type Gastroesophageal reflux disease without esophagitis Esophageal reflux Thrush, oral Candidiasis of mouth Tobacco use disorder Screening for colon cancer Special screening for malignant neoplasms, colon [facility]* Diagnosis Chronic low back pain with sciatica, sciatica laterality unspecified, unspecified back pain laterality [facility]* Diagnosis Onset Date Resolution Status Admit Date Anxiety and depression acute Ju 2024 4:06am COPD with acute exacerbation chronic September 29, 2024 4:06am [facility] Work Phone: Evaluation note* Diagnosis Chronic low back pain with sciatica, sciatica laterality unspecified, unspecified back pain laterality documented in this encounter [facility] note* Diagnosis Stage 3 severe COPD by GOLD classification (HCC) Chronic low back pain with sciatica, sciatica laterality unspecified, unspecified back pain laterality documented in this encounter [facility] note* Diagnosis Stage 3 severe COPD by GOLD classification (HCC)- Primary Chronic low back pain with sciatica, sciatica laterality unspecified, unspecified back pain laterality Essential hypertension, benign Tobacco use disorder Generalized anxiety disorder Aortic valve stenosis, etiology of cardiac valve disease unspecified documented in this encounter [facility] note* Diagnosis Stage 3 severe COPD by GOLD classification (HCC)- Primary Generalized osteoarthrosis, involving multiple sites Generalized anxiety disorder Chronic low back pain with sciatica, sciatica laterality unspecified, unspecified back pain laterality documented in this encounter [facility] note* Diagnosis Stage 3 severe COPD by GOLD classification (HCC)- Primary Chronic low back pain with sciatica, sciatica laterality unspecified, unspecified back pain laterality documented in this encounter [facility] note* Diagnosis NO SHOW- Primary Stage 3 severe COPD by GOLD classification (HCC) Generalized osteoarthrosis, involving multiple sites Generalized anxiety disorder Chronic low back pain with sciatica, sciatica laterality unspecified, unspecified back pain laterality documented in this encounter [facility] note* Diagnosis Stage 3 severe COPD by GOLD classification (HCC) documented in this encounter [facility] note* Diagnosis No-show for appointment- Primary Stage 3 severe COPD by GOLD classification (HCC) Chronic low back pain with sciatica, sciatica laterality unspecified, unspecified back pain laterality documented in this encounter [facility] note* Diagnosis Palliative care by specialist- Primary Stage 3 severe COPD by GOLD classification (HCC) Chronic low back pain with sciatica, sciatica laterality unspecified, unspecified back pain laterality Generalized osteoarthrosis, involving multiple sites Generalized anxiety disorder Atrial fibrillation, unspecified type ([facility]) History of lung cancer Personal history of malignant neoplasm of bronchus and lung History of lobectomy of lung Other chronic pain Dependence on supplemental oxygen 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 of 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 [facility]* Diagnosis Stage 3 severe COPD by GOLD classification ([facility]) [facility]* Diagnosis Severe aortic stenosis- Primary Aortic valve disorders Chronic respiratory failure with hypoxia ([facility]) documented in this encounter [facility] [facility]* Diagnosis Preop cardiovascular exam- Primary Pre-operative cardiovascular examination Nonrheumatic aortic valve stenosis Preop cardiovascular exam- Primary Pre-operative cardiovascular examination documented in this encounter [facility]* Diagnosis Itching- Primary Unspecified pruritic disorder documented in this encounter [facility] note* Diagnosis Preop cardiovascular exam- Primary Pre-operative cardiovascular examination Preop cardiovascular exam Pre-operative cardiovascular examination Aortic valve stenosis, etiology of cardiac valve disease unspecified Preop cardiovascular exam Pre-operative cardiovascular examination documented in this encounter [facility] HealthHistory and physical note Author José Smith [facility] July 20, 2023 4:55am Note Date/Time July 20, 2023 4:2 4am [facility] Medical Records Department [address] [place] [id number] H&P Exam - Hospitalist 07/20/23 0406 MR#: [id number] Acct: [id number] Name: DENIA GONZALEZ Rep #:[id number] : 1955 68 From: José Abebe DO PCP: Dr. Yoseph Fall MD Status:AD IN Location: [facility] [place] [id number] HPI - General General Date of Admission: [...] anxiety, GERD and OA who presents to [facility] ER complaining of shortness of breath, [...] exacerbation of COPD with clinical evidence of kimjn-if-aftwwmg hypoxic respiratory insufficiency likely due to recent viral URI in the setting of ongoing tobacco abuse and she was then admitted to the general medical floor forongoin care for stay that is expected to be greater than 48 hours. [facility] albuterol sulfate 90 mcg/actuation [...] % (Auto) 67.5, Lymph % (Auto) 23.7, Mineral% (Auto) 7.6, Eos % (Auto) 0.6, Baso [...] needed nebulizers. Give Tylenol as needed for xstn-jt-sbulkani(level 1- 5/10) pain or fever. Continue Percocet prn for severe (level 6-10/10) pain. Tobacco cessation will be strongly encouraged with nicotine patch offeredto control cravings. 2. Viral URI likely triggering #1 - Check viral respiratory panel and placed oncontact and droplet precautions until confirmed negative. 3. Xrfwr-an-fpieoxn hypoxic respiratory insufficiency arising from #1 & [...] 55 minutes. Charges/Coding Visit Charges Inpatient E&M: 15472 Init Hosp L2 07/20/23 9039 <Electronically signed by José Cunningham DO> Cosigner Signature (if applicable): CC: Dr. José Cunningham DO; Dr. Yoseph Fall MD~ Signed [facility] Work Phone: History and physical note Author Dionne Porter [facility] Note Date/Time September 29, 2024 4:32a m [facility] Medical Records Department [address] [place] [address] H&P Exam - Hospitalist 09/29/24 0403 MR#: [id number] Acct: [id number] Name: DENIA GONZALEZ Rep #:[id number] : 1955 69 From: Dionne Porter MD [...] allergic rhinitis, HTN who presents to the [facility] ED on 09/29/2024 with history of [...] 78.5 H, Lymph % (Auto) 13.2 L, Mineral % (Auto) 6.9, Eos % (Auto) 0.7, [...] of an acute cardiopulmonary abnormality. Reading Location: [id number] Assessment & Plan Assessment/Plan (1) COPD with acute exacerbation: PLAN: Plan The patient is a 69 y/o F w/ PMHx: GERD, RLS, Anxiety and Depression, Former tobacco use, Former EtOH Abuse, Hx Non-small cell lung cancer status post right lung lobectomy remotely 2003, COPD/Asthma with Chronic Hypoxic Respiratory Failure with allergic rhinitis, HTN who presents to the [facility] ED on 09/29/2024 with history of [...] Code status. Charges/Coding Visit Charges Inpatient E&M: 96728 Init Hosp L3 09/29/24 0432 <Electronically signed by Dionne Porter MD> Cosigner Signature (if applicable): CC: Dr. Dionne Porter MD; Dr. Yoseph Fall MD~ Signed [facility] Work Phone: History and physical note Author Dionne Charlotte [facility] Note Date/Time December 26, 2024 8:21pm [facility] Medical Records Department [address] [place] [address] H&P Exam - Hospitalist 12/26/241955 MR#: [id number] Acct: [id number] Name: DENIA GONZALEZ Rep #:[id number] : 1955 69 From: Dionne Porter MD PCP: Dr. Yoseph Fall MD Status:AD M IN Location: [facility] [id number] HPI - General General Date of [...] allergic rhinitis, HTN who presents to the [facility] ED on 12/26/2024 with history of [...] have a heart cath at [facility] in the next several weeks because [...] BUN/creatinine 16/0.64, GFR 96, glucose 112, initial [id number] with repeat delta 25, chest x-ray with [...] 1 and Solu-Medrol 125 mg IVx 1. [facility] Medical History Afib Aortic valve stenosis RLS [...] mg tablet 10 mg PO Q12H pain 12/24/ 13 05/31/15 History 10 MG fluticasone propionate 50 1 [...] 83.2 H, Lymph % (Auto) 11.3 L, Mineral % (Auto) 4.5, Eos % (Auto) 0.1, [...] acute abnormality. No significant change Reading [id number] Assessment & Plan Assessment/Plan (1) COPD with acute exacerbation: PLAN: Plan The patient is a 69 y/o F w/ PMHx: Valvular Heart Disease, GERD, RLS, Anxiety and Depression, Former tobacco use, Former EtOH Abuse, Hx Non-small cell lung cancer status post right lung lobectomy remotely 2003, COPD/Asthma with Chronic Hypoxic Respiratory Failure (2L NC) with allergic rhinitis, HTN who presents to the [facility] ED on 12/26/2024 with history of [...] as noted for evaluation at [facility] with upcoming cardiac catheterization for consideration [...] 16 minutes. Charges/Coding Visit Charges Inpatient E&M: 34126 Init Hosp L3 Procedures Hospitalists Procedures: 76026 Advncd Care Plan 30 Min 12/26/242020 <Electronically signed by Dionne Porter MD> Cosigner Signature (if applicable): CC: Dr. Dionne Porter MD; Dr. Yoseph Fall MD~ Signed [facility] Work Phone: Hospital Discharge instructions Additional [...] needed for your shortness of breath and wheezing.[facility] Work Phone: Reason for referral (narrative)* Outpatient Procedure (Routine) - Pending Review Specialty Diagnoses / Procedures Referred By Contac t Referred To Contact [facility] Diagnoses Chronic obstructive pulmonary disease, unspecified COPD type (HCC) Procedures OXIMETRY WITH AMBULATION NONINVASIVE EAR/PULSE OXIMETRY RUY Guzmán, Michelle Andrade MD [address] [place] [address] Respiratory [place] [address] [place] [address] Referral ID Status Reason Start Date Expiration Date Visits Requested Visits Authorized [id number] Pending Review Auto-Generat ed Referral 01/13/2022 02/12/2023 1 1 [facility] for referral (narrative)* Diagnostic Procedure Only (Routine) - Pending Review Specialty Diagnoses / Procedures Referred By Contac t Referred To Contact [facility] Diagnoses Encounter for screening mammogram for breast cancer Procedures MICKIE SCREENING SCREENING MAMMOGRAPHY BI 2-VIEW BREAST INC CAD Yoseph Fall MD [facility] [place] [address] [facility] Imaging [address] [place] [phone] Referral ID Status Reason Start Date Expiration Date Visits Requested Visits Authorized [id number] Pending Review Auto-Generat ed Referral 06/16/2023 07/15/2024 1 1 [facility] for referral (narrative)No reason for referral information [facility]WPrem[facility] Work Phone: Reason for visit Narrative* Auth/Cert (Routine) Specialty Diagnoses / Procedures Referred By Contac t Referred To Contact Diagnoses Preop cardiovascular exam Preop cardiovascular exam [Z01.810] Procedures MT R & L HRT CATH WINJX HRT ART& L VENTR IMG Left and right heart cath / coronary angiography Zaria Shea MD [address] [address] Phone: tel: fax: Referral ID Status Reason Start Date Expiration Date Visits Re quested Visits Authorized [id number] 12/15/2024 1 1 [facility] Advance Directives No Advanced Directives Records FoundDocuments on File Type Date Recorded 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 Advance Directive(s) 08/04/2016 2:40 PM Advance Directive(s) 08/04/2016 3:52 PM Advance Directive(s) 06/21/2016 6:38 PM Documents on File Type Date Recorded 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 No September 29, 2024 2:42am Advance Directives No May 08, 2016 10:32am Advance Directive Response Recorded Date/ Time Do you have a Healthcare Power of Vamp Throater? No September 29, 2024 5:11am Advance Directives No May 08, 2016 10:32am Advance Directive Response Recorded Date/ Time Do you have a Healthcare Power of Vamp Throater? No September 29, 2024 5:11am Do you have a Healthcare Power of Vamp Throater? No December 26, 2024 4:37pm Advance Directives No May 08, 2016 10:32am Advance Directive Response Recorded Date/ Time Do you have a Healthcare Power of Vamp Throater? No September 29, 2024 5:11am Do you have a Healthcare Power of Vamp Throater? No December 26, 2024 9:29pm Advance Directives No May 08, 2016 10:32am Date Activated Date Inactivated Comments 01/05/2025 9:00 AM 01/05/2025 5:58 PM Date Activated Date Inactivated Comments 01/05/2025 9:00 AM 01/05/2025 5:58 PM Chief Complaint and Reason for Visit Chief Complaint ACUTE EXACERBATION O F COPD WITH [id number] Reason for Visit COPD (chronic obstru ctive pulmonary disease) Hypoxia Respiratory insufficiency Viral URI with cough COPD with acute exacerbation Chief Complaint ACUTE EXACERBATION O F COPD WITH [id number] ACUTE EXACERBATION OF COPD WITH [id number]-[id number] ACUTE EXACERBATION OF COPD WITH [id number] Reason for Visit COPD (chronic obstru ctive pulmonary disease) Hypoxia Respiratory insufficiency Viral URI with cough COPD with acute exacerbation Chief Complaint Admit Date Shortness of breath September 29, 2024 4:03a m COPD EXACERBATION September 29, 2024 4:06a m Reason for Visit Admit Date Anxiety and depression September 29, 2024 4: 06am COPD with acute exacerbation September 29 025 4:06am Chief Complaint Admit Date Shortness of [...] EXACERBATION October 09, 2024 3:58 pm S/P [facility] 10/09 New AFIB/Severe October 12:58pm Reason for [...] EXACERBATION October 09, 2024 3:58 pm S/P [facility] 10/09 New AFIB/Severe October 12:58pm COPD EXACERBATION, [...] COPD with acute exacerbation December 262024 8:00pm Chief Complaint Admit Date Shortness of breath [...] EXACERBATION October 09, 2024 3:58 pm S/P [facility] 10/09 New AFIB/Severe October 12:58pm COPD EXACERBATION, ACUTE ANEMIA Septembe 2024 8:00pm SOB, Anxiety December 26, 2024 8:16pm COPD EXACERBATION, ACUTE ANEMIA Septembe 2024 2:08pm Reason for Visit Admit Date Anxiety and [...] 12:58pm Acute anemia December 26, 2024 8:00pm Acute respiratory insufficiency Septembe 2024 8:00pm Anxiety December 26, 2024 8:00pm Anxiety and depression December 26 8:00pm Palliative care encounter December 26, 2024 8:00pm Respiratory insufficiency December 26, 2024 8:00pm COPD with acute exacerbation December 262024 8:00pm Chief Complaint Admit Date Shortness of breath [...] EXACERBATION October 09, 2024 3:58 pm S/P [facility] 16 New AFIB/Severe October 12:58pm COPD EXACERBATION, ACUTE ANEMIA Septembe r 2024 8:00pm SOB, Anxiety December 26, 2024 8:16pm COPD EXACERBATION, ACUTE ANEMIA Septembe r 2024 2:08pm COPD EXACERBATION, ACUTE ANEMIA Septembe r 2024 3:46pm COPD EXACERBATION, ACUTE ANEMIA Septembe r 2024 9:15am COPD EXACERBATION, ACUTE ANEMIA Septembe r 2024 11:16am COPD EXACERBATION, ACUTE ANEMIA Septembe r 2024 2:50pm COPD EXACERBATION, ACUTE ANEMIA Septembe r 2024 11:09am COPD EXACERBATION, ACUTE ANEMIA Septembe r 2024 1:46pm Family History No Family History Records Found Relationship Condition Age at Onset Recorded Date/T [...] involving multiple sites Iman Person APRN.CNP [address] [place] [address] Referral ID Status Reason Start Date Expiration Date V isits Requested Visits Authorized [id number] Pending Review 1 1 Specialty Diagnoses / Procedures Referred By Contac t Referred To Contact Diagnoses Generalized osteoarthrosis, involving multiple sites Yoseph Fall MD [address] [place] [address] Referral ID Status Reason Start Date Expiration Date V isits Requested Visits Authorized [id number] Pending Review 1 1 Referral ID Status Reason Start Date Expiration Date V isits Requested Visits Authorized [id number] Pending Review 1 1 Summary Purpose Additional Source Comments Source Comments (unrecognize d section and content) In the event this informatio n is protected by the Federal Confidentiality of Alcohol and Drug Abuse Patient Records regulations: The Federal rules restrict any use of the information to criminally investigate or prosecute any alcohol or drug abuse patient.[facility] the event this information is protected by the Federal Confidentiality of Alcohol and Drug Abuse Patient Records regulations: The Federal rules restrict any use of the information to criminally investigate or prosecute any alcohol or drug abuse patient.[facility] HospitalIn the event this information is protected by the Federal Confidentiality of Alcohol and Drug Abuse Patient Records regulations: The Federal rules restrict any use of the information to criminally investigate or prosecute any alcohol or drug abuse patient.[facility] HospitalIn the event this information is protected by the Federal Confidentiality of Alcohol and Drug Abuse Patient Records regulations: The Federal rules restrict any use of the information to criminally investigate or prosecute any alcohol or drug abuse patient.[facility] HospitalIn the event this information is protected by the Federal Confidentiality of Alcohol and Drug Abuse Patient Records regulations: The Federal rules restrict any use of the information to criminally investigate or prosecute any alcohol or drug abuse patient.[facility] HospitalIn the event this information is protected by the Federal Confidentiality of Alcohol and Drug Abuse Patient Records regulations: The Federal rules restrict any use of the information to criminally investigate or prosecute any alcohol or drug abuse patient.[facility] HospitalIn the event this information is protected by the Federal Confidentiality of Alcohol and Drug Abuse Patient Records regulations: The Federal rules restrict any use of the information to criminally investigate or prosecute any alcohol or drug abuse patient.[facility] HospitalIn the event this information is protected by the Federal Confidentiality of Alcohol and Drug Abuse Patient Records regulations: The Federal rules restrict any use of the information to criminally investigate or prosecute any alcohol or drug abuse patient.[facility] HospitalIn the event this information is protected by the Federal Confidentiality of Alcohol and Drug Abuse Patient Records regulations: The Federal rules restrict any use of the information to criminally investigate or prosecute any alcohol or drug abuse patient.[facility] HospitalIn the event this information is protected by the Federal Confidentiality of Alcohol and Drug Abuse Patient Records regulations: The Federal rules restrict any use of the information to criminally investigate or prosecute any alcohol or drug abuse patient.[facility] HospitalIn the event this information is protected by the Federal Confidentiality of Alcohol and Drug Abuse Patient Records regulations: The Federal rules restrict any use of the information to criminally investigate or prosecute any alcohol or drug abuse patient.[facility] HospitalIn the event this information is protected by the Federal Confidentiality of Alcohol and Drug Abuse Patient Records regulations: The Federal rules restrict any use of the information to criminally investigate or prosecute any alcohol or drug abuse patient.[facility] HospitalIn the event this information is protected by the Federal Confidentiality of Alcohol and Drug Abuse Patient Records regulations: The Federal rules restrict any use of the information to criminally investigate or prosecute any alcohol or drug abuse patient.[facility] HospitalIn the event this information is protected by the Federal Confidentiality of Alcohol and Drug Abuse Patient Records regulations: The Federal rules restrict any use of the information to criminally investigate or prosecute any alcohol or drug abuse patient.[facility] HospitalIn the event this information is protected by the Federal Confidentiality of Alcohol and Drug Abuse Patient Records regulations: The Federal rules restrict any use of the information to criminally investigate or prosecute any alcohol or drug abuse patient.[facility] HospitalIn the event this information is protected by the Federal Confidentiality of Alcohol and Drug Abuse Patient Records regulations: The Federal rules restrict any use of the information to criminally investigate or prosecute any alcohol or drug abuse patient.[facility] HospitalIn the event this information is protected by the Federal Confidentiality of Alcohol and Drug Abuse Patient Records regulations: The Federal rules restrict any use of the information to criminally investigate or prosecute any alcohol or drug abuse patient.[facility] HospitalIn the event this information is protected by the Federal Confidentiality of Alcohol and Drug Abuse Patient Records regulations: The Federal rules restrict any use of the information to criminally investigate or prosecute any alcohol or drug abuse patient.[facility] HospitalIn the event this information is protected by the Federal Confidentiality of Alcohol and Drug Abuse Patient Records regulations: The Federal rules restrict any use of the information to criminally investigate or prosecute any alcohol or drug abuse patient.[facility] HospitalIn the event this information is protected by the Federal Confidentiality of Alcohol and Drug Abuse Patient Records regulations: The Federal rules restrict any use of the information to criminally investigate or prosecute any alcohol or drug abuse patient.[facility] HospitalIn the event this information is protected by the Federal Confidentiality of Alcohol and Drug Abuse Patient Records regulations: The Federal rules restrict any use of the information to criminally investigate or prosecute any alcohol or drug abuse patient.[facility] HospitalIn the event this information is protected by the Federal Confidentiality of Alcohol and Drug Abuse Patient Records regulations: The Federal rules restrict any use of the information to criminally investigate or prosecute any alcohol or drug abuse patient.[facility] HospitalIn the event this information is protected by the Federal Confidentiality of Alcohol and Drug Abuse Patient Records regulations: The Federal rules restrict any use of the information to criminally investigate or prosecute any alcohol or drug abuse patient.[facility] HospitalIn the event this information is protected by the Federal Confidentiality of Alcohol and Drug Abuse Patient Records regulations: The Federal rules restrict any use of the information to criminally investigate or prosecute any alcohol or drug abuse patient.[facility] HospitalIn the event this information is protected by the Federal Confidentiality of Alcohol and Drug Abuse Patient Records regulations: The Federal rules restrict any use of the information to criminally investigate or prosecute any alcohol or drug abuse patient.[facility] HospitalIn the event this information is protected by the Federal Confidentiality of Alcohol and Drug Abuse Patient Records regulations: The Federal rules restrict any use of the information to criminally investigate or prosecute any alcohol or drug abuse patient.[facility] HospitalIn the event this information is protected by the Federal Confidentiality of Alcohol and Drug Abuse Patient Records regulations: The Federal rules restrict any use of the information to criminally investigate or prosecute any alcohol or drug abuse patient.[facility] HospitalIn the event this information is protected by the Federal Confidentiality of Alcohol and Drug Abuse Patient Records regulations: The Federal rules restrict any use of the information to criminally investigate or prosecute any alcohol or drug abuse patient.[facility] HospitalIn the event this information is protected by the Federal Confidentiality of Alcohol and Drug Abuse Patient Records regulations: The Federal rules restrict any use of the information to criminally investigate or prosecute any alcohol or drug abuse patient.[facility] HospitalIn the event this information is protected by the Federal Confidentiality of Alcohol and Drug Abuse Patient Records regulations: The Federal rules restrict any use of the information to criminally investigate or prosecute any alcohol or drug abuse patient.[facility] HospitalIn the event this information is protected by the Federal Confidentiality of Alcohol and Drug Abuse Patient Records regulations: The Federal rules restrict any use of the information to criminally investigate or prosecute any alcohol or drug abuse patient.[facility] HospitalIn the event this information is protected by the Federal Confidentiality of Alcohol and Drug Abuse Patient Records regulations: The Federal rules restrict any use of the information to criminally investigate or prosecute any alcohol or drug abuse patient.[facility] HospitalIn the event this information is protected by the Federal Confidentiality of Alcohol and Drug Abuse Patient Records regulations: The Federal rules restrict any use of the information to criminally investigate or prosecute any alcohol or drug abuse patient.[facility] HospitalIn the event this information is protected by the Federal Confidentiality of Alcohol and Drug Abuse Patient Records regulations: The Federal rules restrict any use of the information to criminally investigate or prosecute any alcohol or drug abuse patient.[facility] HospitalIn the event this information is protected by the Federal Confidentiality of Alcohol and Drug Abuse Patient Records regulations: The Federal rules restrict any use of the information to criminally investigate or prosecute any alcohol or drug abuse patient.[facility] HospitalIn the event this information is protected by the Federal Confidentiality of Alcohol and Drug Abuse Patient Records regulations: The Federal rules restrict any use of the information to criminally investigate or prosecute any alcohol or drug abuse patient.[facility] HospitalIn the event this information is protected by the Federal Confidentiality of Alcohol and Drug Abuse Patient Records regulations: The Federal rules restrict any use of the information to criminally investigate or prosecute any alcohol or drug abuse patient.[facility] HospitalIn the event this information is protected by the Federal Confidentiality of Alcohol and Drug Abuse Patient Records regulations: The Federal rules restrict any use of the information to criminally investigate or prosecute any alcohol or drug abuse patient.[facility] HospitalIn the event this information is protected by the Federal Confidentiality of Alcohol and Drug Abuse Patient Records regulations: The Federal rules restrict any use of the information to criminally investigate or prosecute any alcohol or drug abuse patient.[facility] HospitalIn the event this information is protected by the Federal Confidentiality of Alcohol and Drug Abuse Patient Records regulations: The Federal rules restrict any use of the information to criminally investigate or prosecute any alcohol or drug abuse patient.[facility] HospitalIn the event this information is protected by the Federal Confidentiality of Alcohol and Drug Abuse Patient Records regulations: The Federal rules restrict any use of the information to criminally investigate or prosecute any alcohol or drug abuse patient.[facility] HospitalIn the event this information is protected by the Federal Confidentiality of Alcohol and Drug Abuse Patient Records regulations: The Federal rules restrict any use of the information to criminally investigate or prosecute any alcohol or drug abuse patient.[facility] HospitalIn the event this information is protected by the Federal Confidentiality of Alcohol and Drug Abuse Patient Records regulations: The Federal rules restrict any use of the information to criminally investigate or prosecute any alcohol or drug abuse patient.[facility] HospitalIn the event this information is protected by the Federal Confidentiality of Alcohol and Drug Abuse Patient Records regulations: The Federal rules restrict any use of the information to criminally investigate or prosecute any alcohol or drug abuse patient.[facility] HospitalIn the event this information is protected by the Federal Confidentiality of Alcohol and Drug Abuse Patient Records regulations: The Federal rules restrict any use of the information to criminally investigate or prosecute any alcohol or drug abuse patient.[facility] HospitalIn the event this information is protected by the Federal Confidentiality of Alcohol and Drug Abuse Patient Records regulations: The Federal rules restrict any use of the information to criminally investigate or prosecute any alcohol or drug abuse patient.[facility] HospitalIn the event this information is protected by the Federal Confidentiality of Alcohol and Drug Abuse Patient Records regulations: The Federal rules restrict any use of the information to criminally investigate or prosecute any alcohol or drug abuse patient.[facility] HospitalIn the event this information is protected by the Federal Confidentiality of Alcohol and Drug Abuse Patient Records regulations: The Federal rules restrict any use of the information to criminally investigate or prosecute any alcohol or drug abuse patient.[facility] HospitalIn the event this information is protected by the Federal Confidentiality of Alcohol and Drug Abuse Patient Records regulations: The Federal rules restrict any use of the information to criminally investigate or prosecute any alcohol or drug abuse patient.[facility] HospitalIn the event this information is protected by the Federal Confidentiality of Alcohol and Drug Abuse Patient Records regulations: The Federal rules restrict any use of the information to criminally investigate or prosecute any alcohol or drug abuse patient.[facility] HospitalIn the event this information is protected by the Federal Confidentiality of Alcohol and Drug Abuse Patient Records regulations: The Federal rules restrict any use of the information to criminally investigate or prosecute any alcohol or drug abuse patient.[facility] HospitalIn the event this information is protected by the Federal Confidentiality of Alcohol and Drug Abuse Patient Records regulations: The Federal rules restrict any use of the information to criminally investigate or prosecute any alcohol or drug abuse patient.[facility] HospitalIn the event this information is protected by the Federal Confidentiality of Alcohol and Drug Abuse Patient Records regulations: The Federal rules restrict any use of the information to criminally investigate or prosecute any alcohol or drug abuse patient.[facility] HospitalIn the event this information is protected by the Federal Confidentiality of Alcohol and Drug Abuse Patient Records regulations: The Federal rules restrict any use of the information to criminally investigate or prosecute any alcohol or drug abuse patient.[facility] HospitalIn the event this information is protected by the Federal Confidentiality of Alcohol and Drug Abuse Patient Records regulations: The Federal rules restrict any use of the information to criminally investigate or prosecute any alcohol or drug abuse patient.[facility] HospitalIn the event this information is protected by the Federal Confidentiality of Alcohol and Drug Abuse Patient Records regulations: The Federal rules restrict any use of the information to criminally investigate or prosecute any alcohol or drug abuse patient.[facility] HospitalIn the event this information is protected by the Federal Confidentiality of Alcohol and Drug Abuse Patient Records regulations: The Federal rules restrict any use of the information to criminally investigate or prosecute any alcohol or drug abuse patient.[facility] HospitalIn the event this information is protected by the Federal Confidentiality of Alcohol and Drug Abuse Patient Records regulations: The Federal rules restrict any use of the information to criminally investigate or prosecute any alcohol or drug abuse patient.[facility] HospitalIn the event this information is protected by the Federal Confidentiality of Alcohol and Drug Abuse Patient Records regulations: The Federal rules restrict any use of the information to criminally investigate or prosecute any alcohol or drug abuse patient.[facility] HospitalIn the event this information is protected by the Federal Confidentiality of Alcohol and Drug Abuse Patient Records regulations: The Federal rules restrict any use of the information to criminally investigate or prosecute any alcohol or drug abuse patient.[facility] HospitalIn the event this information is protected by the Federal Confidentiality of Alcohol and Drug Abuse Patient Records regulations: The Federal rules restrict any use of the information to criminally investigate or prosecute any alcohol or drug abuse patient.[facility] HospitalIn the event this information is protected by the Federal Confidentiality of Alcohol and Drug Abuse Patient Records regulations: The Federal rules restrict any use of the information to criminally investigate or prosecute any alcohol or drug abuse patient.[facility] HospitalIn the event this information is protected by the Federal Confidentiality of Alcohol and Drug Abuse Patient Records regulations: The Federal rules restrict any use of the information to criminally investigate or prosecute any alcohol or drug abuse patient.[facility] HospitalIn the event this information is protected by the Federal Confidentiality of Alcohol and Drug Abuse Patient Records regulations: The Federal rules restrict any use of the information to criminally investigate or prosecute any alcohol or drug abuse patient.[facility] HospitalIn the event this information is protected by the Federal Confidentiality of Alcohol and Drug Abuse Patient Records regulations: The Federal rules restrict any use of the information to criminally investigate or prosecute any alcohol or drug abuse patient.[facility] HospitalIn the event this information is protected by the Federal Confidentiality of Alcohol and Drug Abuse Patient Records regulations: The Federal rules restrict any use of the information to criminally investigate or prosecute any alcohol or drug abuse patient.[facility] HospitalIn the event this information is protected by the Federal Confidentiality of Alcohol and Drug Abuse Patient Records regulations: The Federal rules restrict any use of the information to criminally investigate or prosecute any alcohol or drug abuse patient.[facility] HospitalIn the event this information is protected by the Federal Confidentiality of Alcohol and Drug Abuse Patient Records regulations: The Federal rules restrict any use of the information to criminally investigate or prosecute any alcohol or drug abuse patient.[facility] HospitalIn the event this information is protected by the Federal Confidentiality of Alcohol and Drug Abuse Patient Records regulations: The Federal rules restrict any use of the information to criminally investigate or prosecute any alcohol or drug abuse patient.[facility] HospitalIn the event this information is protected by the Federal Confidentiality of Alcohol and Drug Abuse Patient Records regulations: The Federal rules restrict any use of the information to criminally investigate or prosecute any alcohol or drug abuse patient.[facility] HospitalIn the event this information is protected by the Federal Confidentiality of Alcohol and Drug Abuse Patient Records regulations: The Federal rules restrict any use of the information to criminally investigate or prosecute any alcohol or drug abuse patient.[facility] HospitalIn the event this information is protected by the Federal Confidentiality of Alcohol and Drug Abuse Patient Records regulations: The Federal rules restrict any use of the information to criminally investigate or prosecute any alcohol or drug abuse patient.[facility] HospitalIn the event this information is protected by the Federal Confidentiality of Alcohol and Drug Abuse Patient Records regulations: The Federal rules restrict any use of the information to criminally investigate or prosecute any alcohol or drug abuse patient.[facility] HospitalIn the event this information is protected by the Federal Confidentiality of Alcohol and Drug Abuse Patient Records regulations: The Federal rules restrict any use of the information to criminally investigate or prosecute any alcohol or drug abuse patient.[facility] HospitalIn the event this information is protected by the Federal Confidentiality of Alcohol and Drug Abuse Patient Records regulations: The Federal rules restrict any use of the information to criminally investigate or prosecute any alcohol or drug abuse patient.[facility] HospitalIn the event this information is protected by the Federal Confidentiality of Alcohol and Drug Abuse Patient Records regulations: The Federal rules restrict any use of the information to criminally investigate or prosecute any alcohol or drug abuse patient.[facility] HospitalIn the event this information is protected by the Federal Confidentiality of Alcohol and Drug Abuse Patient Records regulations: The Federal rules restrict any use of the information to criminally investigate or prosecute any alcohol or drug abuse patient.[facility] HospitalIn the event this information is protected by the Federal Confidentiality of Alcohol and Drug Abuse Patient Records regulations: The Federal rules restrict any use of the information to criminally investigate or prosecute any alcohol or drug abuse patient.[facility] HospitalIn the event this information is protected by the Federal Confidentiality of Alcohol and Drug Abuse Patient Records regulations: The Federal rules restrict any use of the information to criminally investigate or prosecute any alcohol or drug abuse patient.[facility] HospitalIn the event this information is protected by the Federal Confidentiality of Alcohol and Drug Abuse Patient Records regulations: The Federal rules restrict any use of the information to criminally investigate or prosecute any alcohol or drug abuse patient.[facility] HospitalIn the event this information is protected by the Federal Confidentiality of Alcohol and Drug Abuse Patient Records regulations: The Federal rules restrict any use of the information to criminally investigate or prosecute any alcohol or drug abuse patient.[facility] HospitalIn the event this information is protected by the Federal Confidentiality of Alcohol and Drug Abuse Patient Records regulations: The Federal rules restrict any use of the information to criminally investigate or prosecute any alcohol or drug abuse patient.[facility] HospitalIn the event this information is protected by the Federal Confidentiality of Alcohol and Drug Abuse Patient Records regulations: The Federal rules restrict any use of the information to criminally investigate or prosecute any alcohol or drug abuse patient.[facility] HospitalIn the event this information is protected by the Federal Confidentiality of Alcohol and Drug Abuse Patient Records regulations: The Federal rules restrict any use of the information to criminally investigate or prosecute any alcohol or drug abuse patient.[facility] HospitalIn the event this information is protected by the Federal Confidentiality of Alcohol and Drug Abuse Patient Records regulations: The Federal rules restrict any use of the information to criminally investigate or prosecute any alcohol or drug abuse patient.[facility] HospitalIn the event this information is protected by the Federal Confidentiality of Alcohol and Drug Abuse Patient Records regulations: The Federal rules restrict any use of the information to criminally investigate or prosecute any alcohol or drug abuse patient.[facility] HospitalIn the event this information is protected by the Federal Confidentiality of Alcohol and Drug Abuse Patient Records regulations: The Federal rules restrict any use of the information to criminally investigate or prosecute any alcohol or drug abuse patient.[facility] HospitalIn the event this information is protected by the Federal Confidentiality of Alcohol and Drug Abuse Patient Records regulations: The Federal rules restrict any use of the information to criminally investigate or prosecute any alcohol or drug abuse patient.[facility] HospitalIn the event this information is protected by the Federal Confidentiality of Alcohol and Drug Abuse Patient Records regulations: The Federal rules restrict any use of the information to criminally investigate or prosecute any alcohol or drug abuse patient.[facility] HospitalIn the event this information is protected by the Federal Confidentiality of Alcohol and Drug Abuse Patient Records regulations: The Federal rules restrict any use of the information to criminally investigate or prosecute any alcohol or drug abuse patient.[facility] HospitalIn the event this information is protected by the Federal Confidentiality of Alcohol and Drug Abuse Patient Records regulations: The Federal rules restrict any use of the information to criminally investigate or prosecute any alcohol or drug abuse patient.[facility] HospitalIn the event this information is protected by the Federal Confidentiality of Alcohol and Drug Abuse Patient Records regulations: The Federal rules restrict any use of the information to criminally investigate or prosecute any alcohol or drug abuse patient.[facility] HospitalIn the event this information is protected by the Federal Confidentiality of Alcohol and Drug Abuse Patient Records regulations: The Federal rules restrict any use of the information to criminally investigate or prosecute any alcohol or drug abuse patient.[facility] HospitalIn the event this information is protected by the Federal Confidentiality of Alcohol and Drug Abuse Patient Records regulations: The Federal rules restrict any use of the information to criminally investigate or prosecute any alcohol or drug abuse patient.[facility] HospitalIn the event this information is protected by the Federal Confidentiality of Alcohol and Drug Abuse Patient Records regulations: The Federal rules restrict any use of the information to criminally investigate or prosecute any alcohol or drug abuse patient.[facility] HospitalIn the event this information is protected by the Federal Confidentiality of Alcohol and Drug Abuse Patient Records regulations: The Federal rules restrict any use of the information to criminally investigate or prosecute any alcohol or drug abuse patient.[facility] HospitalIn the event this information is protected by the Federal Confidentiality of Alcohol and Drug Abuse Patient Records regulations: The Federal rules restrict any use of the information to criminally investigate or prosecute any alcohol or drug abuse patient.[facility] HospitalIn the event this information is protected by the Federal Confidentiality of Alcohol and Drug Abuse Patient Records regulations: The Federal rules restrict any use of the information to criminally investigate or prosecute any alcohol or drug abuse patient.[facility] HospitalIn the event this information is protected by the Federal Confidentiality of Alcohol and Drug Abuse Patient Records regulations: The Federal rules restrict any use of the information to criminally investigate or prosecute any alcohol or drug abuse patient.[facility] HospitalIn the event this information is protected by the Federal Confidentiality of Alcohol and Drug Abuse Patient Records regulations: The Federal rules restrict any use of the information to criminally investigate or prosecute any alcohol or drug abuse patient.[facility] HospitalIn the event this information is protected by the Federal Confidentiality of Alcohol and Drug Abuse Patient Records regulations: The Federal rules restrict any use of the information to criminally investigate or prosecute any alcohol or drug abuse patient.[facility] HospitalIn the event this information is protected by the Federal Confidentiality of Alcohol and Drug Abuse Patient Records regulations: The Federal rules restrict any use of the information to criminally investigate or prosecute any alcohol or drug abuse patient.[facility] HospitalIn the event this information is protected by the Federal Confidentiality of Alcohol and Drug Abuse Patient Records regulations: The Federal rules restrict any use of the information to criminally investigate or prosecute any alcohol or drug abuse patient.[facility] HospitalIn the event this information is protected by the Federal Confidentiality of Alcohol and Drug Abuse Patient Records regulations: The Federal rules restrict any use of the information to criminally investigate or prosecute any alcohol or drug abuse patient.[facility] HospitalIn the event this information is protected by the Federal Confidentiality of Alcohol and Drug Abuse Patient Records regulations: The Federal rules restrict any use of the information to criminally investigate or prosecute any alcohol or drug abuse patient.[facility] HospitalIn the event this information is protected by the Federal Confidentiality of Alcohol and Drug Abuse Patient Records regulations: The Federal rules restrict any use of the information to criminally investigate or prosecute any alcohol or drug abuse patient.[facility] HospitalIn the event this information is protected by the Federal Confidentiality of Alcohol and Drug Abuse Patient Records regulations: The Federal rules restrict any use of the information to criminally investigate or prosecute any alcohol or drug abuse patient.[facility] HospitalIn the event this information is protected by the Federal Confidentiality of Alcohol and Drug Abuse Patient Records regulations: The Federal rules restrict any use of the information to criminally investigate or prosecute any alcohol or drug abuse patient.[facility] HospitalIn the event this information is protected by the Federal Confidentiality of Alcohol and Drug Abuse Patient Records regulations: The Federal rules restrict any use of the information to criminally investigate or prosecute any alcohol or drug abuse patient.[facility] Care Teams (unrecognized sec tion and content) [employer] Superintendent Relationship Specialty Start Date End Date Yoseph Fall MD [address] [place] [address] PCP - General 04/17/09 [employer] Superintendent Relationship Specialty Start Date End Date Yoseph Fall MD [address] [facility] [place] [address] PCP - General 04/17/09 [employer] Superintendent Relationship Specialty Start Date End Date Yoseph Fall MD [address] [place] [address] PCP - General 04/17/09 [employer] Superintendent Relationship Specialty Start Date End Date Yoseph Fall MD [address] [place] [address] PCP - General 04/17/09 [employer] Superintendent Relationship Specialty Start Date End Date Yoseph Fall MD [address] [place] [address] PCP - General 04/17/09 [employer] Superintendent Relationship Specialty Start Date End Date Yoseph Fall MD [address] [place] [address] PCP - General 04/17/09 [employer] Superintendent Relationship Specialty Start Date End Date Yoseph Fall MD [address] [facility] [address] PCP - General 04/17/09 [employer] Superintendent Relationship Specialty Start Date End Date Yoseph Fall MD [address] [facility] [address] PCP - General 04/17/09 [employer] Superintendent Relationship Specialty Start Date End Date Yoseph Fall MD [address] [facility] [place] [address] PCP - General 04/17/09 [employer] Superintendent Relationship Specialty Start Date End Date Yoseph Fall MD [address] [facility] [place] [place] [address] PCP - General 04/17/09 [employer] Superintendent Relationship Specialty Start Date End Date Yoseph Fall MD [address] [facility] [place] [place] [address] PCP - General 04/17/09 [employer] Superintendent Relationship Specialty Start Date End Date Yoseph Fall MD [address] [facility] [place] [place] [address] PCP - General 04/17/09 [employer] Superintendent Relationship Specialty Start Date End Date Yoseph Fall MD [address] [facility] [place] [place] [address] PCP - General 04/17/09 [employer] Superintendent Relationship Specialty Start Date End Date Yoseph Fall MD [address] [facility] [place] [address] PCP - General 04/17/09 [employer] Superintendent Relationship Specialty Start Date End Date Yoseph Fall MD [address] [facility] [place] [address] PCP - General 04/17/09 [employer] Superintendent Relationship Specialty Start Date End Date Yoseph Fall MD [address] [facility] [place] [address] PCP - General 04/17/09 [employer] Superintendent Relationship Specialty Start Date End Date Yoseph Fall MD [address] [facility] [place] [address] PCP - General 04/17/09 [employer] Superintendent Relationship Specialty Start Date End Date Yoseph Fall MD [address] [place] [address] PCP - General 04/17/09 [employer] Superintendent Relationship Specialty Start Date End Date Yoseph Fall MD [address] [place] [address] PCP - General 04/17/09 [employer] Superintendent Relationship Specialty Start Date End Date Yoseph Fall MD [address] [place] [address] PCP - General 04/17/09 [employer] Superintendent Relationship Specialty Start Date End Date Yoseph Fall MD [address] [place] [address] PCP - General 04/17/09 [employer] Superintendent Relationship Specialty Start Date End Date Yoseph Fall MD [address] [place] [address] PCP - General 04/17/09 [employer] Superintendent Relationship Specialty Start Date End Date Yoseph Fall MD [address] [place] [address] PCP - General 04/17/09 [employer] Superintendent Relationship Specialty Start Date End Date Yoseph Fall MD [address] [place] [address] PCP - General 04/17/09 [employer] Superintendent Relationship Specialty Start Date End Date Yoseph Fall MD [address] [place] [address] PCP - General 04/17/09 [employer] Superintendent Relationship Specialty Start Date End Date Yoseph Fall MD [address] [place], [place] [id number] PCP - General 04/17/09 Team Status: Active Member Role Status Dates Dr. Yoseph Fall MD Primary Care Provider Active Team Status: Active Member Role Status Dates Dr. Yoseph Fall MD Primary Care Provider Active Dr. Dallas Mena MD Emergency Provider Active Dr. José Cunningham DO Admit Provider, Attending Pr ovider Active [employer] Superintendent Relationship Specialty Start Date End Date Yoseph Fall MD [address] [place], [place] [id number] PCP - General 04/17/09 Team Status: Active [...] Dr. Jan Bolanos MD Attending Provider Active [employer] Superintendent Relationship Specialty Start Date End Date Yoseph Fall MD [address] [place], [place] [address] PCP - General 04/17/09 [employer] Superintendent Relationship Specialty Start Date End Date Yoseph Fall MD [address] [place], [place] [id number] PCP - General 04/17/09 [employer] Superintendent Relationship Specialty Start Date End Date Yoseph Fall MD [address] [place], [place] [id number] PCP - General 04/17/09 [employer] Superintendent Relationship Specialty Start Date End Date Yoseph Fall MD [address] [place] [address] PCP - General 04/17/09 [employer] Superintendent Relationship Specialty Start Date End Date Yoseph Fall MD [address] [place] [address] PCP - General 04/17/09 [employer] Superintendent Relationship Specialty Start Date End Date Yoseph Fall MD [address] [place] [address] PCP - General 04/17/09 [employer] Superintendent Relationship Specialty Start Date End Date Yoseph Fall MD [address] [place] [address] PCP - General 04/17/09 Iman Person APRN.MARINE INSURANCE CLAIM EXAMINER [address] [place] [address] Technical Editor Family Medicine 04/02/24 [employer] Superintendent Relationship Specialty Start Date End Date Yoseph Fall MD [address] [place] [address] PCP - General 04/17/09 Iman Person APRN.MARINE INSURANCE CLAIM EXAMINER [address] [place] [address] Technical Editor Family Medicine 04/02/24 [employer] Superintendent Relationship Specialty Start Date End Date Yoseph Fall MD [address] [place] [address] PCP - General 04/17/09 Iman Person APRN.MARINE INSURANCE CLAIM EXAMINER [address] [facility] [place] [address] Technical Editor Family Medicine 04/02/24 Nelson Robert APRN.MARINE INSURANCE CLAIM EXAMINER [address] [facility] [place] [address] Technical Editor Family Medicine 04/11/24 [employer] Superintendent Relationship Specialty Start Date End Date Yoseph Fall MD [address] [place] [address] PCP - General 04/17/09 Iman Person APRN.MARINE INSURANCE CLAIM EXAMINER [address] [place] [address] Technical Editor Family Medicine 04/02/24 Nelson Robert APRN.MARINE INSURANCE CLAIM EXAMINER [address] [place] [address] [facility] 04/11/24 [employer] Superintendent Relationship Specialty Start Date End Date Yoseph Fall MD [address] [place] [address] PCP - General 04/17/09 Iman Person APRN.MARINE INSURANCE CLAIM EXAMINER [address] [facility] [place] [address] Technical Editor Family Medicine 04/02/24 Nelson Roebrt APRN.MARINE INSURANCE CLAIM EXAMINER [address] [place] [address] Technical Editor Family Medicine 04/11/24 [employer] Superintendent Relationship Specialty Start Date End Date Yoseph Fall MD [address] [facility] [place] [address] PCP - General 04/17/09 Iman Person APRN.MARINE INSURANCE CLAIM EXAMINER [address] [place] [address] Technical Editor Family Medicine 04/02/24 Nelson Robert APRN.MARINE INSURANCE CLAIM EXAMINER [address] [place] [address] Technical Editor [facility] Medicine 04/11/24 [employer] Superintendent Relationship Specialty Start Date End Date Yoseph Fall MD [address] [place] [address] PCP - General 04/17/09 Iman Person APRN.MARINE INSURANCE CLAIM EXAMINER [address] [place] [address] Technical Editor Family Medicine 04/02/24 Nelson Robert APRN.MARINE INSURANCE CLAIM EXAMINER [address] [place] [address] Technical Editor [facility] 04/11/24 [employer] Superintendent Relationship Specialty Start Date End Date Yoseph Fall MD [address] [place] [address] PCP - General 04/17/09 Iman Person APRN.MARINE INSURANCE CLAIM EXAMINER [address] [place] [address] Technical Editor Family Medicine 04/02/24 Nelson Robert APRN.MARINE INSURANCE CLAIM EXAMINER [address] [place] [address] [facility] 04/11/24 [employer] Superintendent Relationship Specialty Start Date End Date Yoseph Fall MD [address] [place] [address] PCP - General 04/17/09 Iman Person APRN.MARINE INSURANCE CLAIM EXAMINER [address] [place] [address] Technical Editor [facility] Medicine 04/02/24 Nelson Robert APRN.MARINE INSURANCE CLAIM EXAMINER [address] [place] [address] [facility] 04/11/24 [employer] Superintendent Relationship Specialty Start Date End Date Yoseph Fall MD [address] [place] [address] PCP - General 04/17/09 Iman Person APRN.MARINE INSURANCE CLAIM EXAMINER [address] [place] [address] [facility] 04/02/24 Nelson Robert APRN.MARINE INSURANCE CLAIM EXAMINER [address] [place] [address] [facility] 04/11/24 [employer] Superintendent Relationship Specialty Start Date End Date Yoseph Fall MD [address] [place] [address] PCP - General 04/17/09 Iman Person APRN.MARINE INSURANCE CLAIM EXAMINER [address] [place] [address] Technical Editor Family Medicine 04/02/24 Nelson Robert APRN.MARINE INSURANCE CLAIM EXAMINER [address] [place] [address] Technical Editor [facility] Medicine 04/11/24 [employer] Superintendent Relationship Specialty Start Date End Date Yoseph Fall MD [address] [place] [address] PCP - General 04/17/09 Iman Person APRN.MARINE INSURANCE CLAIM EXAMINER [address] [place] [address] Technical Editor Family Medicine 04/02/24 Nelson Robert APRN.MARINE INSURANCE CLAIM EXAMINER [address] [place] [address] [facility] 04/11/24 [employer] Superintendent Relationship Specialty Start Date End Date Yoseph Fall MD [address] [place] [address] PCP - General 04/17/09 Iman Person APRN.MARINE INSURANCE CLAIM EXAMINER [address] [place] [address] Technical Editor Family Medicine 04/02/24 Nelson Robert APRN.MARINE INSURANCE CLAIM EXAMINER [address] [place] [address] [facility] 04/11/24 [employer] Superintendent Relationship Specialty Start Date End Date Yoseph Fall MD [address] [place] [address] PCP - General 04/17/09 Iman Person APRN.MARINE INSURANCE CLAIM EXAMINER [address] [place], [place] [address] [facility] 04/02/24 Nelson Robert APRN.MARINE INSURANCE CLAIM EXAMINER [address] [place], [place] [address] [facility] 04/11/24 [employer] Superintendent Relationship Specialty Start Date End Date Yoseph Fall MD [address] [place], [place] [id number] PCP - General 04/17/09 Nelson Robert APRN.MARINE INSURANCE CLAIM EXAMINER [address] [place], [place] [id number] [facility] 04/11/24 Team Status: Active Member Role Status [...] Provider Active Start: October 02, 2024 Dr. Juntio Madrid MD Other Provider Active St art: [...] Provider Active St art: October 09, 2024 [employer] Superintendent Relationship Specialty Start Date End Date Yoseph Fall MD [address] [place] [address] PCP - General 04/17/09 Nelson Robert APRN.MARINE INSURANCE CLAIM EXAMINER [address] [place] [address] Technical Editor Family Medicine 04/11/24 [employer] Superintendent Relationship Specialty Start Date End Date Yoseph Fall MD [address] [place] [address] PCP - General 04/17/09 Nelson Robert APRN.MARINE INSURANCE CLAIM EXAMINER [address] [place] [address] Technical Editor [facility] 04/11/24 [employer] Superintendent Relationship Specialty Start Date End Date Yoseph Fall MD [address] [place] [address] PCP - General 04/17/09 Nelson Robert APRN.MARINE INSURANCE CLAIM EXAMINER [address] [place] [address] Technical Editor [facility] 04/11/24 [employer] Superintendent Relationship Specialty Start Date End Date Yoseph Fall MD [address] [place] [address] PCP - General 04/17/09 Nelson Robert APRN.MARINE INSURANCE CLAIM EXAMINER [address] [place] [address] Technical Editor [facility] 04/11/24 [employer] Superintendent Relationship Specialty Start Date End Date Yoseph Fall MD [address] [place] [address] PCP - General 04/17/09 Nelson Robert APRN.MARINE INSURANCE CLAIM EXAMINER [address] [place] [address] Technical Editor [facility] 04/11/24 [employer] Superintendent Relationship Specialty Start Date End Date Yoseph Fall MD [address] [place] [address] PCP - General 04/17/09 Nelson Robert PPA TEACHER.MARINE INSURANCE CLAIM EXAMINER [address] [place] [address] Technical Editor [facility] 04/11/24 [employer] Superintendent Relationship Specialty Start Date End Date Yoseph Fall MD [address] [place] [address] PCP - General 04/17/09 Nelson Robert PPA TEACHER.MARINE INSURANCE CLAIM EXAMINER [address] [place] [address] [facility] 04/11/24 [employer] Superintendent Relationship Specialty Start Date End Date Yoseph Fall MD [address] [place] [address] PCP - General 04/17/09 Nelson Robert PPA TEACHER.MARINE INSURANCE CLAIM EXAMINER [address] [place] [address] [facility] 04/11/24 [employer] Superintendent Relationship Specialty Start Date End Date Yoseph Fall MD [address] [place] [address] PCP - General 04/17/09 Nelson Robert PPA TEACHER.MARINE INSURANCE CLAIM EXAMINER [address] [place] [address] [facility] 04/11/24 [employer] Superintendent Relationship Specialty Start Date End Date Yoseph Fall MD [address] [place] [address] PCP - General 04/17/09 Nelson Robert, PPA TEACHER.MARINE INSURANCE CLAIM EXAMINER [address] [place] [address] [facility] 04/11/24 [employer] Superintendent Relationship Specialty Start Date End Date Yoseph Fall MD [address] [place] [address] PCP - General 04/17/09 Jakob, Nelson, PPA TEACHER.MARINE INSURANCE CLAIM EXAMINER [address] [place] [address] Technical Editor Family Medicine 04/11/24 Team Status: Active Member Role/Relationship Status [...] Active St art: October 07, 2024 Dr. Lnyne Schafer MD Other Provider Active St art: [...] November 03, 2024 End: November 03, 2024 [employer] Superintendent Relationship Specialty Start Date End Date Yoseph Fall MD [address] [place] [address] PCP - General 04/17/09 Nelson Robert APRN.MARINE INSURANCE CLAIM EXAMINER [address] [place] [address] Technical Editor [facility] 04/11/24 [employer] Superintendent Relationship Specialty Start Date End Date Yoseph Fall MD [address] [place] [address] PCP - General 04/17/09 Nelson Robert PPA TEACHER.MARINE INSURANCE CLAIM EXAMINER [address] [place] [address] Technical Editor [facility] 04/11/24 [employer] Superintendent Relationship Specialty Start Date End Date Yoseph Fall MD [address] [place] [address] PCP - General 04/17/09 Nelson Robert PPA TEACHER.MARINE INSURANCE CLAIM EXAMINER [address] [place] [address] Technical Editor Family Medicine 04/11/24 [employer] Superintendent Relationship Specialty Start Date End Date Yoseph Fall MD [address] [place] [address] PCP - General 04/17/09 Nelson Robert, ABRAHAM.MARINE INSURANCE CLAIM EXAMINER [address] [place] [address] [facility] 04/11/24 Richard Broussard, RN Specialty [employer] Machine Tender [facility]ospice [facility] Pall[facility] 11/24/24 Gregor Fernandez APRN.MARINE INSURANCE CLAIM EXAMINER [address] [place], [place] [id number] Palliative Medicine Home Provider Hospice & Palliative Medicine 11/24/24 [employer] Superintendent Relationship Specialty Start Date End Date Yoseph Fall MD [address] [place] [address] PCP - General 04/17/09 Nelson Robert APRN.MARINE INSURANCE CLAIM EXAMINER [facility] [place] [address] [facility] 04/11/24 Richard Broussard, RN Specialty [employer]ing Machine Tender Hospice & Palliative Medicine 11/24/24 Gregor Fernandez, PPA TEACHER.MARINE INSURANCE CLAIM EXAMINER [address] [place], [place] [id number] Palliative Medicine Home Provider Hospice & Palliative Medicine 11/24/24 [employer] Superintendent Relationship Specialty Start Date End Date Yoseph Fall MD [address] [place] [address] PCP - General 04/17/09 Nelson Robert APRN.MARINE INSURANCE CLAIM EXAMINER [address] [place] [address] Technical Editor Family [facility] 04/11/24 Richard Broussard, RN Specialty [employer] Machine Tender Hospice & Palliative Medicine 11/24/24 Gregor Fernandez APRN.MARINE INSURANCE CLAIM EXAMINER [address] [place] [address] Palliative Medicine Home Provider Hospice & Palliative Medicine 11/24/24 [employer] Superintendent Relationship Specialty Start Date End Date Yoseph Fall MD [facility] [place] [address] PCP - General 04/17/09 Nelson Robert, PPA TEACHER.MARINE INSURANCE CLAIM EXAMINER [address] [place] [address] [facility] 04/11/24 Richard Broussard, KAREN Specialty [employer]ing Machine Tender Hospice & Palliative Medicine 11/24/24 Gregor Fernandez PPA TEACHER.MARINE INSURANCE CLAIM EXAMINER [address] [place] [address] Palliative Medicine Home Provider Hospice & Palliative Medicine 11/24/24 [employer] Superintendent Relationship Specialty Start Date End Date Yoseph Fall MD [address] [place] [address] PCP - General 04/17/09 Nelson Robert PPA TEACHER.MARINE INSURANCE CLAIM EXAMINER [facility] [place] [address] Technical Editor Family [facility] 04/11/24 Richard Broussard, RN Specialty [employer]ing Machine Tender Hospice & Palliative Medicine 11/24/24 Gregor Fernandez PPA TEACHER.MARINE INSURANCE CLAIM EXAMINER [address] [place] [address] Palliative Medicine Home Provider Hospice & Palliative Medicine 11/24/24 [employer] Superintendent Relationship Specialty Start Date End Date Yoseph Fall MD [address] [place], [place] [address] PCP - General 04/17/09 Nelson Robert, PPA TEACHER.MARINE INSURANCE CLAIM EXAMINER [address] [place], [place] [address] Technical Editor Family Medicine 04/11/24 Richard Broussard, KAREN Specialty [employer] Bonding Machine Tender Hospice & Palliative Medicine 11/24/24 Gregor Fernandez, ABRAHAM.MARINE INSURANCE CLAIM EXAMINER [address] [place] [address] Palliative Medicine Home Provider Hospice & Palliative Medicine 11/24/24 [employer] Superintendent Relationship Specialty Start Date End Date Yoseph Fall MD [address] [place], [place] [id number] PCP - General 04/17/09 Nelson Robert, PPA TEACHER.MARINE INSURANCE CLAIM EXAMINER [address] [place], [place] [id number] Technical Editor Family [facility] 04/11/24 Richard Broussard, KAREN Specialty [employer] Bonding Machine Tender Hospice & Palliative Medicine 11/24/24 Gregor Fernandez APRN.MARINE INSURANCE CLAIM EXAMINER [address] [place] [address] Palliative Medicine Home Provider Hospice & [...] Provider Active St art: December 26, 2024 Team Status: Active Member Role/Relationship Status Dates Dr. Yoseph Fall MD Primary Care Provider Active Start: December 26, 2024 Dr. Marcel Zarate MD Emergency Provider Active Start: December 26, 2024 Dr. Dionne Porter MD Admit Provider Active St art: December 26, 2024 Dr. Dionne Porter MD Other Provider Active St art: December 26, 2024 Dr. Lynne Schafer MD Attending Provider Active Start: December 26, 2024 Stacy Jha MAILER APPRENTICE-C Other Provider Active Start: December Team Status: Active Member Role/Relationship Status Dates Dr. Yoseph Fall MD Primary Care Provider Active Start: December 27, 2024 Dr. Marcel Zarate MD Emergency Provider Active Start: December 27, 2024 Dr. Dionne Porter MD Admit Provider Active St art: December 27, 2024 Dr. Dionne Porter MD Other Provider Active St art: December 27, 2024 Dr. Lynne Schafer MD Other Provider Active St art: December 27, 2024 Stacy Jha MAILER APPRENTICE-C Attending Provider Active Start: December Stacy Jha NP-C Other Provider Active Start: December Team Status: Inactive Member Role/Relationship Status Dates Dr. Yoseph Fall MD Primary Care Provider Active Start: December 26, 2024 End: December 30, 2024 Dr. Marcel Zarate MD Emergency Provider Active Start: December 26, 2024 End: December 30, 2024 Dr. Dionne Porter MD Admit Provider Active St art: December 26, 2024 End: December 30, 2024 Dr. Dionne Porter MD Other Provider Active St art: December 26, 2024 End: December 30, 2024 Dr. Lynne Schafer MD Attending Provider Active Start: December 26, 2024 End: December 30, 2024 Stacy Jha NP-C Other Provider Active Start: December End: December 30, 2024 Dr. Alessandro Palma MD Other Provider Active Sta rt: December 26, 2024 End: December 30, 2024 Dr. Kyle Mendenhall DO Other Provider Active St art: December 26, 2024 End: December 30, 2024 SETFANIE Sifuentes Other Provider Active Start : December 26, 2024 End: December 30, 2024 STEFANIE Alexander Other Provider Active St art: December 26, 2024 End: December 30, 2024 SADIQ Paez Other Provider Active Star t: December 26, 2024 End: December 30, 2024 Team Status: Active Member Role/Relationship Status Dates Dr. Yoseph Fall MD Primary Care Provider Active Start: December 27, 2024 Dr. Marcel Zarate MD Emergency Provider Active Start: December 27, 2024 Dr. Dionne Porter MD Admit Provider Active St art: December 27, 2024 Dr. Dionne Porter MD Other Provider Active St art: December 27, 2024 Dr. Lynne Schafer MD Attending Provider Active Start: December 27, 2024 Dr. Lynne cShafer MD Other Provider Active St art: December 27, 2024 STEFANIE Clifford Other Provider Active Start: December Dr. Alessandro Palma MD Other Provider Active Sta rt: December 27, 2024 Dr. Kyle Mendenhall DO Other Provider Active St art: December 27, 2024 STEFANIE Sifuentes Other Provider Active Start : December 27, 2024 STEFANIE Alexanedr Other Provider Active St art: December 27, 2024 SADIQ Paez Other Provider Active Star t: December 27, 2024 Team Status: Active Member Role/Relationship Status Dates Dr. Yoseph Fall MD Primary Care Provider Active Start: December 28, 2024 Dr. Marcel Zarate MD Emergency Provider Active Start: December 28, 2024 Dr. Dionne Porter MD Admit Provider Active St art: December 28, 2024 Dr. Dionne Porter MD Other Provider Active St art: December 28, 2024 Dr. Lynne Schafer MD Other Provider Active St art: December 28, 2024 Stacy Jha NP-C Attending Provider Active Start: December Stacy Jha NP-Patrick Other Provider Active Start: December Dr. Alessandro Palma MD Other Provider Active Sta rt: December 28, 2024 Dr. Kyle Mendenhall DO Other Provider Active St art: December 28, 2024 STEFANIE Sifuentes Other Provider Active Start : December 28, 2024 STEFANIE Alexander Other Provider Active St art: December 28, 2024 SADIQ Paez Other Provider Active Star t: December 28, 2024 Team Status: Active Member Role/Relationship Status Dates Dr. Yoseph Fall MD Primary Care Provider Active Start: December 28, 2024 Dr. Marcel Zarate MD Emergency Provider Active Start: December 28, 2024 Dr. Dionne Porter MD Admit Provider Active St art: December 28, 2024 Dr. Dionne Porter MD Other Provider Active St art: December 28, 2024 Dr. Lynne Schafer MD Other Provider Active St art: December 28, 2024 Stacy Jha NP-C Other Provider Active Start: December Dr. Alessandro Palma MD Other Provider Active Sta rt: December 28, 2024 Dr. Kyle Mendenhall DO Attending Provider Active Start: December 28, 2024 Dr. Kyle Mendenhall DO Other Provider Active St art: December 28, 2024 STEFANIE Sifuentes Other Provider Active Start : December 28, 2024 STEFANIE Alexander Other Provider Active St art: December 28, 2024 SADIQ Paez Other Provider Active Star t: December 28, 2024 Team Status: Active Member Role/Relationship Status Dates Dr. Yoseph Fall MD Primary Care Provider Active Start: December 28, 2024 Dr. Marcel Zarate MD Emergency Provider Active Start: December 28, 2024 Dr. Dionne Portre MD Admit Provider Active St art: December 28, 2024 Dr. Dionne Porter MD Other Provider Active St art: December 28, 2024 Dr. Lynne Schafer MD Attending Provider Active Start: December 28, 2024 Dr. Lynne Schafer MD Other Provider Active St art: December 28, 2024 Stacy Jha NP-C Other Provider Active Start: December Dr. Alessandro Palma MD Other Provider Active Sta rt: December 28, 2024 Dr. Kyle Mendenhall DO Other Provider Active St art: December 28, 2024 STEFANIE Sifuentes Other Provider Active Start : December 28, 2024 STEFANIE Alexander Other Provider Active St art: December 28, 2024 SADIQ Paez Other Provider Active Star t: December 28, 2024 Team Status: Active Member Role/Relationship Status Dates Dr. Yoseph Fall MD Primary Care Provider Active Start: December 29, 2024 Dr. Marcel Zarate MD Emergency Provider Active Start: December 29, 2024 Dr. Dionne Porter MD Admit Provider Active St art: December 29, 2024 Dr. Dionne Porter MD Other Provider Active St art: December 29, 2024 Dr. Lynne Schafer MD Other Provider Active St art: December 29, 2024 STEFANIE Clifford Attending Provider Active Start: December STEFANIE Clifford Other Provider Active Start: December Dr. Alessandro Palma MD Other Provider Active Sta rt: December 29, 2024 Dr. Kyle Mendenhall DO Other Provider Active St art: December 29, 2024 STEFANIE Sifuentes Other Provider Active Start : December 29, 2024 STEFANIE Alexander Other Provider Active St art: December 29, 2024 SADIQ Paez Other Provider Active Star t: December 29, 2024 Team Status: Active Member Role/Relationship Status Dates Dr. Yoseph Fall MD Primary Care Provider Active Start: December 29, 2024 Dr. Marcel Zarate MD Emergency Provider Active Start: December 29, 2024 Dr. Dionne Porter MD Admit Provider Active St art: December 29, 2024 Dr. Dionne Porter MD Other Provider Active St art: December 29, 2024 Dr. Lynne Schafer MD Attending Provider Active Start: December 29, 2024 Dr. Lynne Schafer MD Other Provider Active St art: December 29, 2024 Stacy Jha , MAILER APPRENTICE-C Other Provider Active Start: December Dr. Alessandro Palma MD Other Provider Active Sta rt: December 29, 2024 Dr. Kyle Mendenhall , DO Other Provider Active St art: December 29, 2024 Elma Mendez NP-C Other Provider Active Start : December 29, 2024 Mercedez Joseph NP-C Other Provider Active St art: December 29, 2024 SADIQ Paez Other Provider Active Star t: December 29, 2024 [employer] Superintendent Relationship Specialty Start Date End Date Yoseph aFll MD [address] [place], [place] [id number] PCP - General 04/17/09 Nelson Robert, PPA TEACHER.MARINE INSURANCE CLAIM EXAMINER [facility] [place], [place] [id number] Technical Editor Family Medicine 04/11/24 Richard Broussard, RN Specialty [employer] Bonding Machine Tender Hospice & Palliative Medicine 11/24/24 Gregor Fernandez, PPA TEACHER.MARINE INSURANCE CLAIM EXAMINER [address] [place] [id number] Palliative Medicine Home Provider Hospice & Palliative Medicine 11/24/24 Reason for Visit (unrecogniz ed section and [...] OXIMETRY Michelle Mendoza MD [address] [place] [address] Respiratory [place] [address] [place] [address] Referral ID Status Reason Start Date Expiration Date V isits Requested Visits Authorized [id number] Closed Auto-Generate d Referral 01/13/2022 02/12/2023 1 [...] Comments Medication Problem Patient Update Reason Comments [facility] patient update Reason Onset Date Comments Transition Of Care 10/10/2024 Reason Onset Date Comments Refill Request 10/11/2024 Reason Comments PT Delay in Care Order Reason Onset Date Comments Refill Request 10/12/2024 Reason Comments Hospital F/U [facility] Reason Comments Orders Occupation Therapy Plan of care Consu lt Physical Therapy Plan of Care Reason Comments Patient Update Reason Comments pall med- 09348 Initial Consult Reason Comments Home Care Management [...] laterality Procedures CONSULT TO PALLIATIVE CARE OFFICE/OUTPATIENT [facility] 60 MINUTES Yoseph Fall MD [address] [place] [address] Phone: tel: fax: Referral ID Status Reason Start Date Expiration Date V isits Requested Visits Authorized [id number] Closed PCP Requested Referral 10/20/2024 10/20/2025 1 1 Reason Comments Patient Request Patient Update Specialty Diagnoses / Procedures Referred By Contac t Referred To Contact Hospice & Palliative Medicine Diagnoses Stage 3 severe COPD by GOLD classification (HCC) Chronic low back pain with sciatica, sciatica laterality unspecified, unspecified back pain laterality Procedures CONSULT TO PALLIATIVE CARE OFFICE/OUTPATIENT [facility] 60 MINUTES Yoseph Fall MD [address] [place] [address] Phone: tel: fax: Referral ID Status Reason Start Date Expiration Date V isits Requested Visits Authorized [id number] Closed PCP Requested Referral 10/23/2024 10/23/2025 1 1 Reason Comments Symptom Management Reason Onset Date Comments Refill Request 11/23/2024 Reason Comments Care Coordination Reason Comments [facility] Nursing Call Reason Onset Date Comments Refill Request 12/08/2024 Reason Comments Cardiac Valve Problem New Patient [facility] Reason Onset Date Comments Refill Request 12/19/2024 Reason Comments home health calling asking for verbal or chris Reason Comments Delay In Care Social Work Consult Reason Comments Delay In Care Physical Therapy Reason Comments Medication Request Goals (unrecognized section and content) Goals may be documented in a n alternate sectionGoals may be documented in an alternate section Scheduled Active and Recently Administ ered Medications (unrecognized section and content) Medication Order 01/03/2025 01/04/2025 01/05/2025 sodium chloride 0.9% (NS) flush 5-40 mL 5-40 mL, IntraVENous, Every 12 hours, First dose on Wed01/05/25 at 0915, Preprocedure, For Line Patency: Peripheral IV = 5 mL; Midline or Central Line = 10 mL/lumen. If following IV push medication, administer flush at same rate as the IV push. Flush volume is determined by type of infusion therapy being given. For non-viscous solutions use: Peripheral IV = 5 mL Midline or Central Line = 10 mL/lumen For viscous solutions (i.e. blood components, parenteral nutrition, contrast media, or after obtaining blood sample) use: Peripheral IV = 10 mL Midline or Central Line = 20 mL/lumen 0915 (Canceled Entry - Provider: Automatic Discharge Provider - Comment: Automatically canceled at discontinue of medication order) PRN Medication Order 01/03/2025 01/04/2025 01/05/2025 fentaNYL (Sublimaze) injection (CANCELED) IntraVENous, As needed, Starting on Wed01/05/25 at 1148, Intraprocedure 1148 (Given - Provid er: Mercedez Colon RN) heparin injection (CANCELED) IntraVENous, As needed, Starting on Wed01/05/25 at 1208, Intraprocedure 1208 (Given - Provid er: Rolo Arboleda, KAREN) iopamidol (Isovue-300) 61 % injection (CANCELED) As needed, Starting on Wed01/05/25 at 1218, Intraprocedure 1218 (Given - Provid er: Zaria Shea MD) lidocaine (Xylocaine) 1 % injection (CANCELED) As needed, Starting on Wed01/05/25 at 1202, Intraprocedure 1202 (Given - Provid er: Octavia Luther MD) midazolam (Versed) injection (CANCELED) IntraVENous, As needed, Starting on Wed01/05/25 at 1148, Intraprocedure 1148 (Given - Provid er: Mercedez Colon RN)1207 (Given - Provider: Rolo Arboleda RN) sodium chloride 0.9 % infusion 5-250 mL/hr, IntraVENous, PRN, if patient receiving piggyback infusions and maintenance fluids are not ordered OR KVO fluids to protect IV site / prevent frequent line interruptions / long duration, Starting on Wed01/05/25 at 0900, Preprocedure, For piggyback infusion, administer at same rate as piggyback for a total of 25 mL. Enter 25 mL into dose field and piggyback rate into rate field of order. If piggyback is infusing at a rate less than 100 mL/hr, enter 25 mL into dose field and 100 mL/hr into rate field of order. For KVO fluids, enter rate of 20 mL/hr or less into rate field of order. sodium chloride 0.9% (NS) flush 5-40 mL 5-40 mL, IntraVENous, PRN, line care, After every IV line use, Starting on Wed01/05/25 at 0900, Preprocedure, For Line Patency: Peripheral IV = 5 mL; Midline or Central Line = 10 mL/lumen. If following IV push medication, administer flush at same rate as the IV push. Flush volume is determined by type of infusion therapy being given. For non-viscous solutions use: Peripheral IV = 5 mL Midline or Central Line = 10 mL/lumen For viscous solutions (i.e. blood components, parenteral nutrition, contrast media, or after obtaining blood sample) use: Peripheral IV = 10 mL Midline or Central Line = 20 mL/lumen verapamil (Isoptin) injection (CANCELED) As needed, Starting on Wed01/05/25 at 1205, Intraprocedure 1205 (Given - Provid er: Octavia Luther MD) INFORMATION SOURCE (unrecogn ized section and content) DATE CREATED AUTHOR 01/17/2025 [facility] DATE CREATED AUTHOR AUTHOR'S ORGANIZ ATION 01/18/2025 [facility] DATE CREATED AUTHOR AUTHOR'S ORGANIZ ATION 01/18/2025 [facility] FOR RECORDS PERTAINING TO PATIENTS WHO [...] BE BASED ON THE PRIMARY CLINICAL RECORDS. [employer] provides no warranty or guarantee of the accuracy or completeness of information in this document.
--- NOTE | 2025-01-26 00:30 | PCM.HOSP.N ---
Hospitalist Note Patient with notable coughing, secretions concerning for hemoptysis. Will hold eliquis, repeat CBC, to be cautious will obtain repeat CTA chest as it is now 24 hours out from initial contrast usage and renal function within appropriate range of usage. Certainly this could be related with PNA and her concurrent eliquis usage but would prefer to be cautious.
[2025-01-26 00:47] LABS: Hematocrit 22.8 % (37-47); Hemoglobin 7.1 g/dL (12.0-15.0); Immature Granulocytes Count 0.030 X10^3/uL (0.0-0.0); Mean Corp Hgb Conc 31.1 g/dL (32-36); Mean Corpuscular Volume 78.1 fL (81-99); Mean Platelet Vol. 11.2 fl (6.2-12.0); NRBC Flagged by Analyzer 0 % (0-5); POSITIVE DIFFERENTIAL YES; Platelet Count 212 K/mm3 (150-450); RBC Distribution Width CV 13.8 % (11.6-14.6); RBC Distribution Width SD 39.6 fl (35.1-43.9); Red Blood Count 2.92 M/mm3 (4.2-5.4); White Blood Count 6.9 K/mm3 (4.4-11.0)
[2025-01-26] MEDS: Amiodarone 150 MG in Dextrose 5%-Water (100mL Bag) 100 ML 600 MG IV BOLUS (02:01)
[2025-01-26] MEDS: Propofol 10MG/Ml 1,000 MG/100 ML Bottle 11.2 MG CONT INF (02:14)
[2025-01-26] MEDS: 0.9% Saline Lock 10 ML Syringe IV ×3 (02:16→22:04)
[2025-01-26] MEDS: 0.9% Normal Saline (250mL Bag) 250 ML 15 ML IV (02:17)
[2025-01-26] MEDS: Furosemide 20 MG/2 ML VIAL IV (02:50)
[2025-01-26 03:37] LABS: Hematocrit 23.7 % (37-47); Hemoglobin 7.4 g/dL (12.0-15.0); Immature Granulocytes Count 0.040 X10^3/uL (0.0-0.0); Mean Corp Hgb Conc 31.2 g/dL (32-36); Mean Corpuscular Volume 76.9 fL (81-99); Mean Platelet Vol. 10.9 fl (6.2-12.0); NRBC Flagged by Analyzer 0 % (0-5); POSITIVE DIFFERENTIAL YES; Platelet Count 240 K/mm3 (150-450); RBC Distribution Width CV 13.9 % (11.6-14.6); RBC Distribution Width SD 38.9 fl (35.1-43.9); Red Blood Count 3.08 M/mm3 (4.2-5.4); White Blood Count 8.2 K/mm3 (4.4-11.0)
[2025-01-26 04:08] LABS: Anion Gap 10 (5-15); BUN 26 mg/dL (4-19); BUN/Creat Ratio 38.6 RATIO (10-20); Calcium,Total 8.4 mg/dL (7.6-11.0); Carbon Dioxide 39.2 mmol/L (21.0-32.0); Chloride 86 mmol/L (98-108); Estimated Creatinine Clearance 65.19 ml/min (50-250); Glucose 114 mg/dL (70-99); Potassium 3.1 mmol/L (3.3-5.1)
[2025-01-26] MEDS: Piperacil/Tazobactam 3.375 GM in 0.9% Normal Saline (50mL MB+) 50 ML IV ×3 (05:23→22:04)
[2025-01-26 05:27] LABS: Base Excess 20 mmol/L (-2 to +2); FI02 35.0; PEEP 5; PO2 64 mmHG (75-100); RR 12; SITE L Radial; SO2 93 % (95-99)
[2025-01-26] MEDS: TITRATION PARAMETER CHANGE 1 EACH IV (06:41)
--- NOTE | 2025-01-26 07:24 | PN.CC_ITS ---
Assessment & Plan Assessment/Plan (1) Acute respiratory failure: PLAN: Plan RECOMMENDATIONS: 1. Continue assist-control mode of mechanical ventilation. Wean FiO2 and PEEP as tolerated. 2. Continue propofol and fentanyl for sedation. 3. Continue scheduled bronchodilators and steroids. 4. Continue empiric antibiotics. 5. Continue appropriate ICU prophylaxis. 6. Okay to initiate tube feeding today from my perspective. 7. Send type and screen. Transfuse if hemoglobin drops below 7 g/dL. IMPRESSIONS: 1. Acute on chronic combined respiratory failure Unclear if this was truly precipitated by the patient's COPD with concurrent panic attacks versus sequelae of her valvular heart disease. She is currently being worked up for a TAVR in [place]. In addition, she has a known extensive tobacco abuse history with a questionable history of COPD, despite never having completed pulmonary function studies or having been evaluated by a sciences dean in the past. According to her , she has a baseline oxygen requirement of 3 L/min. Her CT scan was not overtly concerning for a focal infiltrate or consolidation to suggest pneumonia. However, the patient did ultimately spike a fever. Therefore, antibiotics were initiated. It does appear that she has grown both stenotrophomonas and Pseudomonas from sputum recently. The patient will be maintained on scheduled bronchodilators and steroids. 2. History of valvular heart disease/restless leg syndrome/anxiety/depression/former tobacco dependency/history of non-small cell lung cancer status post right lobectomy Complicates care, management, recovery and prognosis. Continue supportive measures as noted above. Okay to initiate tube feeding from my perspective. TIME: 33 minutes of critical care time, independent of procedures, was spent addressing the patient's acute on chronic combined respiratory failure, review of all data and collaboration with the care team. Subjective Subjective The patient was seen and examined at the bedside this morning. Events from the last 24 hours have been reviewed. The patient is currently afebrile, hemodynamically stable and maintaining appropriate oxygen saturations on assist- control mode of mechanical ventilation with an FiO2 requirement of 35% and PEEP of 5. Nursing staff reported that the patient has been having bloody secretions from her endotracheal tube overnight. She is currently documented to be overall net +1.9 L for the hospitalization. White blood cell count is normal. Hemoglobin was noted to be 7.4 g/dL with a platelet count of 240,000. INR is within normal limits at 1.5. ABG was notable for a pH of 7.5 with a pCO2 of 52 and pO2 of 64. Chemistry profile was notable for a potassium of 3.1 with a bicarbonate of 39 and creatinine of 0.68. Liver function is within normal limits. Objective Data Objective Data The patient's most recent lab work, culture data and imaging studies have all been personally reviewed. Surface echocardiogram from September 2024 demonstrated severe concentric LVH with an ejection fraction of 70% and stage I diastolic dysfunction. Severe aortic stenosis was noted. Blood and sputum cultures are pending. Vital Signs: Vital Signs Temp Pulse Resp BP Pulse Ox O2 Del Method O2 Flow Rate 99.4 F H 78 12 123/66 H 100 Mechanical Ventilator 8 01/26/25 07:00 01/26/25 07:00 01/26/25 07:00 01/26/25 07:00 01/26/25 07:00 01/26/25 07:00 01/25/25 09:04 FiO2 35 01/26/25 07:00 Oxygen Flow Rate (L/min) 8 Oxygen Delivery Method Mechanical Ventilator Weight: 163 lb 9.328 oz Body Mass Index (BMI) 28.0 Intake & Output: Intake and Output for Last 24 Hours 01/24/25 01/25/25 01/26/25 23:59 23:59 23:59 Intake Total 1041.36 / 1057.39 1326.23 / 1326.23 Output Total 475 / 475 Balance 566.36 / 582.39 1326.23 / 1326.23 Lab / Micro Data Attestation: I reviewed the patient's lab results. 01/26/25 03:25 01/26/25 03:25 Labs: Laboratory Results - last 24 hr 01/25/25 08:15: WBC 12.2 H, RBC 3.52 L, Hgb 8.4 L, Hct 28.8 L, MCV 81.8, MCH 23.9 L, MCHC 29.2 L, RDW Std Deviation 40.7, RDW Coeff of Augustin 13.6, Plt Count 315, MPV 10.5, Immature Gran % (Auto) 0.700, Neut % (Auto) 74.3 H, Lymph % (Auto) 12.5 L, [place] % (Auto) 11.0 H, Eos % (Auto) 1.3, Baso % (Auto) 0.2, A bsolute Neuts (auto) 9.1 H, Absolute Lymphs (auto) 1.53, Nucleated RBC % 0, Sodium 137, Potassium 3.5, Chloride 84 L, Carbon Dioxide 44.1 H, Anion Gap 9, B UN 31 H, Creatinine 0.63 L, Estim Creat Clear Calc 65.65, Est GFR (MDRD) Non-Af 96, BUN/Creatinine Ratio 48.1 H, Glucose 115 H, Calcium 9.0, Phosphorus 4.0, Magnesium 1.8, Total Bilirubin 0.34, Direct Bilirubin 0.17, AST 22, ALT 20, Alkaline Phosphatase 57, Total Creatine Kinase 77, Troponin T High Sens 38 H D, NT pro BNP II 1192 H, Total Protein 6.7, Albumin 4.5, Globulin 2.2, Triglycerides 135 01/25/25 08:40: Lactic Acid 1.9 01/25/25 09:06: Urine Color Yellow, Urine Clarity Sl. Cloudy, Urine pH 6.0, Ur Specific M[place]hon 1.025, Urine Protein 500 H, Urine Glucose (UA) Normal, Urine Ketones 5 H, Urine Occult Blood 50 H, Urine Nitrite Negative, Urine Bilirubin Negative, Urine Urobilinogen Normal, Ur Leukocyte Esterase Negative, Urine RBC 0-5 SEEN, Urine WBC 0-5 SEEN, Ur Squamous Epith Cells 0 SEEN, Urine Bacteria 3+, Hyaline Casts 10-25 SEEN, Urine Mucus 0 SEEN 01/25/25 14:54: Troponin T Hi Sens 2 Hr 31 H 01/26/25 00:37: WBC 6.9, RBC 2.92 L, Hgb 7.1 L, Hct 22.8 L, MCV 78.1 L, MCH 24.3 L, MCHC 31.1 L D, RDW Std Deviation 39.6, RDW Coeff of Augustin 13.8, Plt Count 212, MPV 11.2, Immature Gran % (Auto) 0.400, Neut % (Auto) 90.9 H, Lymph % (Auto) 4.4 L, [place] % (Auto) 4.2, Eos % (Auto) 0.0, Baso % (Auto) 0.1, Absolute Neuts (auto) 6.2, Absolute Lymphs (auto) 0.30 L, Nucleated RBC % 0 01/26/25 03:25: WBC 8.2, RBC 3.08 L, Hgb 7.4 L, Hct 23.7 L, MCV 76.9 L, MCH 24.0 L, MCHC 31.2 L, RDW Std Deviation 38.9, RDW Coeff of Augustin 13.9, Plt Count 240, MPV 10.9, Immature Gran % (Auto) 0.500, Neut % (Auto) 91.5 H, Lymph % (Auto) 3.3 L, [place] % (Auto) 4.6, Eos % (Auto) 0.0, Baso % (Auto) 0.1, Absolute Neuts (auto) 7.5, Absolute Lymphs (auto) 0.27 L, Nucleated RBC % 0, Sodium 135, Potassium 3.1 L, Chloride 86 L, Carbon Dioxide 39.2 H, Anion Gap 10, BUN 26 H, Creatinine 0.68 L, Estim Creat Clear Calc 65.19, Est GFR (MDRD) Non-Af 94, BUN/Creatinine Ratio 38.6 H, Glucose 114 H, Calcium 8.4 Micro: Microbiology 01/25/25 09:15 Sputum, Induced/Lukens Gram Stain - Final 01/25/25 09:04 Urine Catheter - Catheter Legionella Antigen - Final 01/25/25 09:04 Urine Catheter - Catheter Streptococcus pneumoniae Antigen (M - Final 01/25/25 08:40 Mucosa - Nose SARS-CoV-2, Influenza & RSV (PCR) - Final ABG Data ABG results: ABG 01/25/25 01/26/25 10:27 05:22 Specimen Type ART ART Sample Site L Brach L Radial pH 7.51 H 7.51 H Bicarbonate Actual 46.3 H 42.4 H Total CO2 48 44 Base Excess 23 H 20 H O2 Saturation 87 L 93 L O2 % 30.0 35.0 ABG pCO2 58.7 H 52.7 H ABG pO2 51 L 64 L Issa Test N/A Respiration Rate 16 12 O2 Delivery Device Adult Vent Adult Vent Vent Mode AC AC Tidal Volume 400.0 400.0 POC PEEP 5 5 Radiography Diagnostic Testing: Radiology Impression Brain CT 01/25/25 08:46 IMPRESSION: CHRONIC CHANGES. NO ACUTE FINDINGS. Reading Location: [id number] Chest CTA 01/25/25 08:51 IMPRESSION: No demonstrated PE, however, the contrast bolus within the pulmonary arteries is not optimal and a subtle filling defect could be present and overlooked particularly in the distal pulmonary artery branches No thoracic aortic aneurysm or dissection Emphysema with chronic interstitial changes, nonspecific pleural thickening in both hemithoraces, subsegmental atelectasis, and multifocal pneumonitis ET tube is 1 cm above the kaylan and should be pulled back 2-3 cm NG tube tip in the body of the stomach Degenerative bony changes Hiatal hernia with evidence of GE reflux Fatty liver Simple renal cysts, no specific follow-up needed Reading Location: [id number] Chest X-Ray 01/25/25 09:00 IMPRESSION: Tubes and lines in position. There are interstitial infiltrates throughout the right mid and lower lung and left lingular segment. There are trace bilateral effusions. Reading [facility] Rhythm Strip Rhythm Strip: Sinus Tach Rate: 110 Ectopy: PAC(s) Physical Exam Const Constitutional Narrative: Intubated, sedated mechanically ventilated. HEENT normocephalic and head/scalp atraumatic Mouth: endotracheal tube in place and OG tube in place Eyes PERRL and conjunctivae normal Neck supple General: trachea midline Resp Auscultation: diminished lung sounds; Negative for rales, rhonchi or wheezes Cardio regular rate and regular rhythm Heart Sounds: murmur GI soft to palpation and non-tender GI Narrative: Protuberant abdomen Extremity General Extremity: edema bilateral lower extremity; Negative for clubbing Skin no rashes or lesions noted Neuro Sensorium / Orientation: sedated on vent Charges/Coding Procedures Hospitalists Procedures: 44150 Critical Care 1st Hr
--- NOTE | 2025-01-26 08:15 | RAD_ITS ---
PROCEDURE: CHEST 1 VIEW (PORTABLE) 01/26/2025 REASON FOR EXAM: RESPIRATORY FAILURE TECHNIQUE: Frontal view of the chest. COMPARISON: January 25, 2025 FINDINGS: Hardware: Endotracheal tube is in satisfactory position above the kaylan. Nasogastric tube is in place and follows the course of the esophagus and crosses the diaphragm; the tube is coiled in the stomach.. Heart: Heart is normal size. Aorta is atherosclerotic. Lungs: Subsegmental atelectasis left lung base. Linear scarring right upper lobe unchanged. Bones: Degenerative changes are identified within the thoracic spine. RAD/Chest 1 View (Portable) IMPRESSION: No new acute cardiopulmonary process. Nasogastric tube coiled in the stomach. The tip is directed back towards the epigastrium. Reading Location: [id number]
--- NOTE | 2025-01-26 08:16 | PCM.PN.HOSP ---
Reason for Visit Chief Complaint: Progressive worsening shortness of breath for 2 weeks Objective Data Objective Data Vital Signs: Vital Signs Temp Pulse Resp BP Pulse Ox O2 Del Method O2 Flow Rate 99.4 F H 89 12 123/66 H 95 Mechanical Ventilator 8 01/26/25 07:00 01/26/25 07:01 01/26/25 07:01 01/26/25 07:00 01/26/25 07:01 01/26/25 07:01 01/25/25 09:04 FiO2 35 01/26/25 07:01 Oxygen Flow Rate (L/min) 8 Oxygen Delivery Method Mechanical Ventilator Weight: 163 lb 9.328 oz Body Mass Index (BMI) 28.0 Intake & Output: Intake and Output for Last 24 Hours 01/24/25 01/25/25 01/26/25 23:59 23:59 23:59 Intake Total 1041.36 / 1057.39 1326.23 / 1326.23 Output Total 475 / 475 Balance 566.36 / 582.39 1326.23 / 1326.23 Lab / Micro Data 01/26/25 03:25 01/26/25 03:25 Labs: Laboratory Results - last 24 hr 01/25/25 08:15: WBC 12.2 H, RBC 3.52 L, Hgb 8.4 L, Hct 28.8 L, MCV 81.8, MCH 23.9 L, MCHC 29.2 L, RDW Std Deviation 40.7, RDW Coeff of Augustin 13.6, Plt Count 315, MPV 10.5, Immature Gran % (Auto) 0.700, Neut % (Auto) 74.3 H, Lymph % (Auto) 12.5 L, Sargent % (Auto) 11.0 H, Eos % (Auto) 1.3, Baso % (Auto) 0.2, Absolute Neuts (auto) 9.1 H, Absolute Lymphs (auto) 1.53, Nucleated RBC % 0, Sodium 137, Potassium 3.5, Chloride 84 L, Carbon Dioxide 44.1 H, Anion Gap 9, BUN 31 H, Creatinine 0.63 L, Estim Creat Clear Calc 65.65, Est GFR (MDRD) Non-Af 96, BUN/Creatinine Ratio 48.1 H, Glucose 115 H, Calcium 9.0, Phosphorus 4.0, Magnesium 1.8, Total Bilirubin 0.34, Direct Bilirubin 0.17, AST 22, ALT 20, Alkaline Phosphatase 57, Total Creatine Kinase 77, Troponin T High Sens 38 H D, NT pro BNP II 1192 H, Total Protein 6.7, Albumin 4.5, Globulin 2.2, Triglycerides 135 01/25/25 08:40: Lactic Acid 1.9 01/25/25 09:06: Urine Color Yellow, Urine Clarity Sl. Cloudy, Urine pH 6.0, Ur Specific Pryor 1.025, Urine Protein 500 H, Urine Glucose (UA) Normal, Urine Ketones 5 H, Urine Occult Blood 50 H, Urine Nitrite Negative, Urine Bilirubin Negative, Urine Urobilinogen Normal, Ur Leukocyte Esterase Negative, Urine RBC 0-5 SEEN, Urine WBC 0-5 SEEN, Ur Squamous Epith Cells 0 SEEN, Urine Bacteria 3+, Hyaline Casts 10-25 SEEN, Urine Mucus 0 SEEN 01/25/25 14:54: Troponin T Hi Sens 2 Hr 31 H 01/26/25 00:37: WBC 6.9, RBC 2.92 L, Hgb 7.1 L, Hct 22.8 L, MCV 78.1 L, MCH 24.3 L, MCHC 31.1 L D, RDW Std Deviation 39.6, RDW Coeff of Augustin 13.8, Plt Count 212, MPV 11.2, Immature Gran % (Auto) 0.400, Neut % (Auto) 90.9 H, Lymph % (Auto) 4.4 L, Sargent % (Auto) 4.2, Eos % (Auto) 0.0, Baso % (Auto) 0.1, Absolute Neuts (auto) 6.2, Absolute Lymphs (auto) 0.30 L, Nucleated RBC % 0 01/26/25 03:25: WBC 8.2, RBC 3.08 L, Hgb 7.4 L, Hct 23.7 L, MCV 76.9 L, MCH 24.0 L, MCHC 31.2 L, RDW Std Deviation 38.9, RDW Coeff of Augustin 13.9, Plt Count 240, MPV 10.9, Immature Gran % (Auto) 0.500, Neut % (Auto) 91.5 H, Lymph % (Auto) 3.3 L, Sargent % (Auto) 4.6, Eos % (Auto) 0.0, Baso % (Auto) 0.1, Absolute Neuts (auto) 7.5, Absolute Lymphs (auto) 0.27 L, Nucleated RBC % 0, Sodium 135, Potassium 3.1 L, Chloride 86 L, Carbon Dioxide 39.2 H, Anion Gap 10, BUN 26 H, Creatinine 0.68 L, Estim Creat Clear Calc 65.19, Est GFR (MDRD) Non-Af 94, BUN/Creatinine Ratio 38.6 H, Glucose 114 H, Calcium 8.4 Micro: Microbiology 01/25/25 09:15 Sputum, Induced/Lukens Gram Stain - Final 01/25/25 09:04 Urine Catheter - Catheter Legionella Antigen - Final 01/25/25 09:04 Urine Catheter - Catheter Streptococcus pneumoniae Antigen (M - Final 01/25/25 08:40 Mucosa - Nose SARS-CoV-2, Influenza & RSV (PCR) - Final ABG Data ABG results: ABG 01/25/25 01/26/25 10:27 05:22 Specimen Type ART ART Sample Site L Brach L Radial pH 7.51 H 7.51 H Bicarbonate Actual 46.3 H 42.4 H Total CO2 48 44 Base Excess 23 H 20 H O2 Saturation 87 L 93 L O2 % 30.0 35.0 ABG pCO2 58.7 H 52.7 H ABG pO2 51 L 64 L Issa Test N/A Respiration Rate 16 12 O2 Delivery Device Adult Vent Adult Vent Vent Mode AC AC Tidal Volume 400.0 400.0 POC PEEP 5 5 Radiography Diagnostic Testing: Radiology Impression Brain CT 01/25/25 08:46 IMPRESSION: CHRONIC CHANGES. NO ACUTE FINDINGS. Reading Location: [facility] Chest CTA 01/25/25 08:51 IMPRESSION: No demonstrated PE, however, the contrast bolus within the pulmonary arteries is not optimal and a subtle filling defect could be present and overlooked particularly in the distal pulmonary artery branches No thoracic aortic aneurysm or dissection Emphysema with chronic interstitial changes, nonspecific pleural thickening in both hemithoraces, subsegmental atelectasis, and multifocal pneumonitis ET tube is 1 cm above the kaylan and should be pulled back 2-3 cm NG tube tip in the body of the stomach Degenerative bony changes Hiatal hernia with evidence of GE reflux Fatty liver Simple renal cysts, no specific follow-up needed Reading Location: [facility] Chest X-Ray 01/25/25 09:00 IMPRESSION: Tubes and lines in position. There are interstitial infiltrates throughout the right mid and lower lung and left lingular segment. There are trace bilateral effusions. [facility] Rhythm Strip Rhythm Strip: Sinus Tach Rate: 110 Ectopy: PAC(s) Physical Exam Narrative Seen and examined. Overnight events were noted. Patient had episode of A-fib RVR last night and 80 mL bolus was given. Patient also had bloody secretions from ET tube/hemoptysis. Eliquis on hold. Lasix was also given overnight. Patient is sedated on propofol and fentanyl. On ventilator. Physical exam General: Sedated HEENT: Atraumatic, PERRLA, EOMI, Normocephalic. Oral: ETT and OG tube Neck: Supple, No JVD, Negative Carotid Bruits Chest wall/Lungs: Air entry diminished in bilateral lung bases. Bilateral expiratory rhonchi. On vent support Cardiovascular: Sinus rhythm, Normal S1,S2, ejection systolic murmur with radiation to carotid Abdomen: Bowel Sounds sluggish, Soft, Non Tender, Non-Distended : No dysuria. No renal angle tenderness. No suprapubic tenderness. Extremities: Mild edema, Capillary Refill Less than 3 Seconds Skin: No rashes, No breakdown Musculoskeletal: No Tenderness to Palpation of Joints or Extremities but patient is seated Neurological: Sedated. Neuroexam unobtainable Psych/Mental Status: Sedated Assessment & Plan Assessment/Plan (1) Acute respiratory failure: PLAN: Plan 1. Acute on chronic combined respiratory failure: Patient is being admitted in ICU, intubated in ED. On vent support, AC mode 40% FiO2/400 mL/5 PEEP.. Sedated. Artistic Director consulted. On baseline 3 L of oxygen at home 01/26: Noted bloody suction on the ventilator tubing and tracheal tube. Chest x-ray was done in the morning shows no new acute cardiopulmonary process. NG coiled in the stomach. Repeat is directed back towards the epigastrium. Eliquis on hold. ABG 7.51/52.7/64 on 35% FiO2, PEEP 5/TV 400 mL. 2. Suspected COPD exacerbation from bilateral multifocal pneumonia: Patient was mildly febrile 100.5 Fahrenheit. Chest x-ray and CTPA images individually reviewed and shows interstitial infiltrates in right mid and lower lung and left mid and lower segment. Suspicion of bilateral multifocal pneumonia. Trace bilateral effusion with blunted bilateral CP angles. CTA chest negative for PE but multifocal pneumonitis. Emphysema with chronic interstitial changes and subsegmental atelectasis. On broad-spectrum antibiotic IV Zosyn. Pneumonia workup ordered. Patient does not have documented PFT or diagnosed COPD but suspected in view of prolonged history of smoking. Patient is being managed on scheduled bronchodilator, IV Solu-Medrol, Mucinex, incentive spirometry and Pep. 01/26: Continue with Dr. Munoz, suctioning. 3. Paroxysmal A-fib: As per EMS EKG it was A-fib RVR heart rate 105 per med. In ED, twelve-lead EKG individually reviewed and shows sinus tachycardia with PAC, ZHANE, LVH, QTc 514 ms/still prolonged QT. Avoid QT prolongation. Currently heart rate in 90s in sinus rhythm. On Eliquis 5 mg p.o. twice daily. On verapamil 180 mg twice daily, Multaq 400 mg twice daily, carvedilol 6.25 mg p.o. twice daily. Avoid QT prolonging insulin drug, Levaquin discontinued. Patient on Zosyn 01/26: A-fib RVR: Patient had transient A-fib RVR last night and amiodarone 150 mg IV bolus was given. Limited echo ordered. Model Maker Apprentice consulted for severe aortic stenosis. 4. Atypical chest pain as documented by EMS with history of valvular heart disease, severe aortic stenosis : It seems patient is undergoing workup for TAVR for severe aortic stenosis. Serial troponins 38, 31. Decreasing trend. 5. Hypertension: Blood pressure is controlled. 6. Restless leg syndrome, Anxiety and depression. History of chronic alcohol use. Home medication conciliation 7. Chronic severe anemia: Patient hemoglobin stays between 8 to 9 g. Admitted with 8.4 current 7.4. Patient not more than 2 Therefore does not meet criteria for acute anemia yet. MCV, MCH and MCHC all are low. RDW on normal. Platelet count normal. Monitored H&H. Microbiology Past 72 Hours 01/25/25 09:15 Sputum, Induced/Lukens Gram Stain - Final 01/25/25 09:04 Urine Catheter - Catheter Legionella Antigen - Final 01/25/25 09:04 Urine Catheter - Catheter Streptococcus pneumoniae Antigen (M - Final 01/25/25 08:40 Mucosa - Nose SARS-CoV-2, Influenza & RSV (PCR) - Final Laboratory Results 01/25/25 08:15: Phosphorus 4.0, Magnesium 1.8, Total Bilirubin 0.34, Direct Bilirubin 0.17, AST 22, ALT 20, Alkaline Phosphatase 57, Total Creatine Kinase 77, Total Protein 6.7, Albumin 4.5, Globulin 2.2, Triglycerides 135 01/25/25 08:40: Lactic Acid 1.9 01/25/25 09:06: Urine Color Yellow, Urine Clarity Sl. Cloudy, Urine pH 6.0, Ur Specific Pryor 1.025, Urine Protein 500 H, Urine Glucose (UA) Normal, Urine Ketones 5 H, Urine Occult Blood 50 H, Urine Nitrite Negative, Urine Bilirubin Negative, Urine Urobilinogen Normal, Ur Leukocyte Esterase Negative, Urine RBC 0-5 SEEN, Urine WBC 0-5 SEEN, Ur Squamous Epith Cells 0 SEEN, Urine Bacteria 3+, Hyaline Casts 10-25 SEEN, Urine Mucus 0 SEEN 01/25/25 10:27: Specimen Type ART, Sample Site L Brach, pH 7.51 H, Bicarbonate Actual 46.3 H, Total CO2 48, Base Excess 23 H, O2 Saturation 87 L, O2 % 30.0, ABG pCO2 58.7 H, ABG pO2 51 L, Respiration Rate 16, O2 Delivery Device Adult Vent, Vent Mode AC, Tidal Volume 400.0, POC PEEP 5 01/25/25 14:54: Troponin T Hi Sens 2 Hr 31 H 01/26/25 00:37: WBC 6.9, RBC 2.92 L, Hgb 7.1 L, Hct 22.8 L, MCV 78.1 L, MCH 24.3 L, MCHC 31.1 L D, RDW Std Deviation 39.6, RDW Coeff of Augustin 13.8, Plt Count 212, MPV 11.2, Immature Gran % (Auto) 0.400, Neut % (Auto) 90.9 H, Lymph % (Auto) 4.4 L, Sargent % (Auto) 4.2, Eos % (Auto) 0.0, Baso % (Auto) 0.1, Absolute Neuts (auto) 6.2, Absolute Lymphs (auto) 0.30 L, Nucleated RBC % 0 01/26/25 03:25: WBC 8.2, RBC 3.08 L, Hgb 7.4 L, Hct 23.7 L, MCV 76.9 L, MCH 24.0 L, MCHC 31.2 L, RDW Std Deviation 38.9, RDW Coeff of Augustin 13.9, Plt Count 240, MPV 10.9, Immature Gran % (Auto) 0.500, Neut % (Auto) 91.5 H, Lymph % (Auto) 3.3 L, Sargent % (Auto) 4.6, Eos % (Auto) 0.0, Baso % (Auto) 0.1, Absolute Neuts (auto) 7.5, Absolute Lymphs (auto) 0.27 L, Nucleated RBC % 0, Sodium 135, Potassium 3.1 L, Chloride 86 L, Carbon Dioxide 39.2 H, Anion Gap 10, BUN 26 H, Creatinine 0.68 L, Estim Creat Clear Calc 65.19, Est GFR (MDRD) Non-Af 94, BUN/Creatinine Ratio 38.6 H, Glucose 114 H, Calcium 8.4 01/26/25 05:22: Specimen Type ART, Sample Site L Radial, pH 7.51 H, Bicarbonate Actual 42.4 H, Total CO2 44, Base Excess 20 H, O2 Saturation 93 L, O2 % 35.0, ABG pCO2 52.7 H, ABG pO2 64 L, Issa Test N/A, Respiration Rate 12, O2 Delivery Device Adult Vent, Vent Mode AC, Tidal Volume 400.0, POC PEEP 5 01/26/25 08:00: PT 18.2 H, INR 1.5, APTT 36.1, Total Bilirubin 0.33, Direct Bilirubin 0.19, AST 21, ALT 19, Alkaline Phosphatase 44, Total Protein 5.4 L, Albumin 3.5, Globulin 1.9 L, Blood Type A POSITIVE, Antibody Screen NEGATIVE Clinical Impression(s) from Imaging Studies Chest X-Ray 01/25/25 09:00 IMPRESSION: Tubes and lines in position. There are interstitial infiltrates throughout the right mid and lower lung and left lingular segment. There are trace bilateral effusions. Reading Location: [facility] Charges/Coding Visit Charges Inpatient E&M: 08889 Subs Hosp L3
[2025-01-26 08:35] LABS: AST(SGOT) 21 U/L (<=31); Alanine Aminotransfer ALT/SGPT 19 U/L (<=34); Albumin, Serum 3.5 g/dL (3.4-4.8); Alkaline Phosphatase 44 U/L (35-104); Bilirubin, Direct 0.19 mg/dL (0.00-0.30); Globulin 1.9 g/dL (2.2-4.2)
[2025-01-26 08:39] LABS: Prothrombin Time (Protime)PT. 18.2 SECONDS (11.7-14.9)
[2025-01-26 08:40] LABS: Partial Thromboplast Time 36.1 Seconds (24.1-36.2)
[2025-01-26] MEDS: Verapamil SR 180 MG CAPSULE PO ×2 (08:49→22:04)
[2025-01-26] MEDS: fentaNYL drip 100 ML 10 MCG CONT INF ×2 (08:56→18:38)
--- NOTE | 2025-01-26 08:59 | ECHOL_ITS ---
Reason For Study Reason For Study: RESPIRATORY FAILURE Procedure This was a limited 2D transthoracic echocardiogram. The study was technically difficult. Exam performed portable in ICU/CCU. Left Ventricle Normal LV size. The estimated ejection fraction is 70 %. No regional wall motion abnormalities noted. Right Ventricle Normal RV size. Normal systolic function. Atria The left and right atria are normal. Mitral Valve There is severe mitral annular calcification. There is no mitral valve stenosis. No mitral valve insufficiency. Tricuspid Valve There is no tricuspid stenosis. Aortic Valve Severe aortic stenosis. MMode/2D Measurements & Calculations LVIDd: 3.8 cm IVSd: 1.4 cm LVOT diam: 1.9 cm LVIDs: 2.2 cm LVPWd: 1.1 cm RVDd: 3.2 cm FS: 40.6 % LVOT area: 2.9 cm2 Ao root diam: 3.3 cm LAV(MOD-bp): 65.5 ml LVAd ap4: 21.0 cm2 LAV(MOD-bp) Indexed: 36.5 ml/m2 LVLd ap4: 7.2 cm LAV(MOD-sp2): 59.2 ml EDV(MOD-sp4): 50.2 ml LAV(MOD-sp4): 65.8 ml EDV(sp4-el): 52.0 ml LVAs ap4: 10.2 cm2 LVLs ap4: 5.8 cm ESV(MOD-sp4): 15.5 ml ESV(sp4-el): 15.3 ml EF(MOD-sp4): 69.1 % EF(sp4-el): 70.7 % SV(MOD-sp4): 34.7 ml SV(sp4-el): 36.7 ml LA A4 area: 21.6 cm2 SI(MOD-sp4): 19.3 ml/m2 LA dimension(2D): 3.6 cm RA A4 area: 14.5 cm2 Doppler Measurements & Calculations Ao V2 max: 469.2 cm/sec LV V1 max: 132.1 cm/sec SV(LVOT): 89.7 ml Ao max P.1 mmHg LV V1 max P.0 mmHg Ao V2 mean: 353.2 cm/sec LV V1 mean P.6 mmHg Ao mean P.3 mmHg LV V1 mean: 104.5 cm/sec Ao V2 VTI: 101.7 cm LV V1 VTI: 31.4 cm AV (velocity ratio): 0.31 SASHA(I,D): 0.88 cm2 SASHA(V,D): 0.80 cm2 ECHO/Echo, Limited Study Interpretation Summary Severe aortic stenosis. The estimated ejection fraction is 70 %. Ordering Physician: Alessandro Palma Referring Physician: Arnulfo Fall Performed By: Lizzette Middleton, TAMMY, RVT
[2025-01-26] MEDS: Propofol 10MG/Ml 1,000 MG/100 ML Bottle 13.4 MG CONT INF (09:27)
--- NOTE | 2025-01-26 09:28 | RAD_ITS ---
PROCEDURE: ABDOMEN SINGLE VIEW (PORTABLE) 01/26/2025 REASON FOR EXAM: OG PLACEMENT TECHNIQUE: Procedure Code: RADABD_P Modality: DX Procedure: ABDOMEN SINGLE VIEW (PORTABLE) COMPARISON: Earlier today's chest radiograph. FINDINGS: Lung bases negative. Negative for subdiaphragmatic air. Negative for free intra-abdominal air. NG tube reposition now with tip near the antrum. . Remainder of the exam negative. RAD/Abdomen Single View (Portable) IMPRESSION: Repositioned and satisfactory located NG tube. Reading Location: [id number]
[2025-01-26] MEDS: Pantoprazole Sodium 40 MG in 0.9% Normal Saline (100mL MB+) 100 ML 300 MG IV (09:59)
[2025-01-26] MEDS: levoFLOXacin IV 750 MG/150 ML BAG 100 MG IV (11:00)
--- NOTE | 2025-01-26 11:31 | CASEMGMT ---
Social Work SW spoke w/significant other, he states pt started the POA papers but they need notarized. Pt has two sons, SW explained they would be the decisionmakers if needed, and once pt is off the vent, SW can follow up w/pt about completing the documents while here. He states understanding. ANAM Markham
--- NOTE | 2025-01-26 13:00 | CASEMGMT ---
[facility] confirms that their Palliative Care services did not initiate as the pt is still under pre-admit status on their end. CM to continue to follow.
[2025-01-26 13:01] LABS: Hematocrit 21.4 % (37-47); Hemoglobin 6.7 g/dL (12.0-15.0)
[2025-01-26 13:41] LABS: Ferritin 29 ng/mL (22-378); Iron 12 ug/dL (50-170); Iron Binding Capacity,Total 280 ug/dL (250-450); Iron Binding Capacity,Unsat 268 ug/dL (228-428)
[2025-01-26] MEDS: Propofol 10MG/Ml 1,000 MG/100 ML Bottle 17.8 MG CONT INF ×2 (14:51→20:30)
--- NOTE | 2025-01-26 14:58 | PCM.CONS.C ---
Assessment & Plan Assessment/Plan (1) Afib: QUALIFIERS: Atrial fibrillation type: paroxysmal Qualified Code(s): I48.0 - Paroxysmal atrial fibrillation PLAN: Continue current medications. No anticoagulation due to anemia and bleeding. Anticoagulation could be considered as an outpatient if stable. (2) Aortic valve stenosis: QUALIFIERS: Cardiac valve disease etiology: nonrheumatic Qualified Code(s): I35.0 - Nonrheumatic aortic (valve) stenosis PLAN: Being worked up for TAVR. Patient's BNP was elevated and she does have pitting edema. Reasonable to try Lasix 40 mg IV tonight and also tomorrow morning. Her respiratory failure could be a combination of her pulmonary and cardiac issues. Due to her severe , diuretics should be administered cautiously. HPI Consult Data Date of Consult: 01/26/25 HPI Narrative Reason for Consultation: Atrial fibrillation, severe aortic stenosis HPI Narrative: DENIA MARC, is a 69 F who presents with shortness of breath that has been going on for about 1 to 2 weeks according to her boyfriend. In the emergency room patient was in severe respiratory distress and had to be intubated. Patient is currently intubated but able to respond to questions. The history however is obtained from her boyfriend who is at her bedside. Patient has history of severe arctic stenosis and is being evaluated for TAVR at [facility]. She has history of chronic respiratory failure and is on home oxygen. She has chronic anemia. She recently had GI bleed. She has had multifocal atrial tachycardia in the past. This time it appears that she was in A-fib with RVR upon presentation. Currently she is in sinus rhythm. Patient does have bilateral pedal edema which her boyfriend says has been getting worse over the last 2 weeks. Patient has a drop in hemoglobin and her most recent hemoglobin is 6.7. Blood was noticed in the ET tube per primary service. Patient also had a spike in temperature and is currently on antibiotics for possible pneumonia as well. [facility] Medical History Palliative care encounter Acute anemia Acute respiratory insufficiency Anxiety Anxiety and depression Respiratory insufficiency COPD with acute exacerbation Afib Aortic valve stenosis RLS (restless legs syndrome) History of ETOH abuse Chronic hypoxic respiratory failure, on home oxygen therapy COPD (chronic obstructive pulmonary disease) Anxiety Depression Smoker Asthma Hypertension Migraines Home Medications ?Medication ?Instructions ?Recorded ?Last Taken ?Type albuterol sulfate 90 mcg/actuation 1 - 2 puff inhalation Q4H PRN PRN 04/18/13 09/23/14 History aerosol inhaler (Ventolin HFA) Bronchodialation cyclobenzaprine 10 mg tablet 10 mg PO Q12H pain 04/18/13 09/23/14 History 10 MG montelukast 10 mg tablet 10 mg PO DAILY allergies 04/18/13 09/23/14 History 10 MG tiotropium bromide 18 mcg capsule 1 puff inhalation DAILY wheezing 04/18/13 09/23/14 History with inhalation device (Spiriva with HandiHaler) Oxygen, Home [Home Oxygen] 2.5 lpm PRN PRN Dyspnea 10/22/13 09/23/14 History sertraline 100 mg tablet 100 mg PO BID mood 10/22/13 09/23/14 History fluticasone 500 mcg-salmeterol 50 1 puff inhalation BID shortness of 10/26/13 09/23/14 Rx mcg/dose blistr powdr for breath ##1 inhalation (Advair Diskus) Ropinirole Hcl 0.25 mg PO QHS restless legs 09/23/14 Unknown History prednisone 10 mg tablet 15 mg PO QODAY PRN FLARE UPS 04/03/15 Unknown History ipratropium 0.5 mg-albuterol 3 mg 3 ml inhalation Q4HWA.RT wheezing 05/13/16 Unknown Rx (2.5 mg base)/3 mL nebulization ##30 soln cholecalciferol (vitamin D3) 50 50 mcg PO DAILY vitamin 10/18/23 Unknown History mcg (2,000 unit) capsule (Vitamin D3) ipratropium 0.5 mg-albuterol 3 mg 3 ml inhalation Q6H PRN shortness 10/18/23 Unknown Rx (2.5 mg base)/3 mL nebulization of breath or wheezing #180 mL soln buspirone 10 mg tablet 10 mg PO BID anxiety 10/02/24 Unknown History hydrocodone-acetaminophen 5-325mg 1 tab PO BID PRN PRN pain 10/03/24 Unknown History 5mg-325mg nicotine 14 mg/24 hr daily 14 mg transdermal DAILY prn #28 ea 10/09/24 Unknown Rx transdermal patch apixaban 5 mg tablet (Eliquis) 5 mg PO BID blood thinne #60 tabs 11/03/24 Unknown Rx carvedilol 6.25 mg tablet 6.25 mg PO BID bp #60 tabs 11/03/24 Unknown Rx furosemide 20 mg tablet 20 mg PO DAILY fluid overload 12/27/24 Unknown History pantoprazole 40 mg tablet,delayed 40 mg PO BID GERD #60 tabs 12/30/24 Unknown Rx release verapamil 180 mg 24 hr 180 mg PO BID #60 caps 12/30/24 Unknown Rx capsule,extended release dronedarone 400 mg tablet (Multaq) 400 mg PO BID 01/25/25 Unknown History Allergy/AdvReac Type Severity Reaction Status Date / Time No Known Allergies Allergy Verified 01/25/25 08:25 Family History Mother Hypertension Throat cancer Father Hypertension Stomach cancer Surgical History H/O exploratory laparotomy History of lung surgery History of cholecystectomy Social History household members: significant other and none housing: apartment Smoking Status: Former smoker alcohol intake: former substance use type: does not use Physical Exam Const Constitutional Narrative: Patient is intubated HEENT normocephalic Resp clear to auscultation bilaterally Cardio regular rate Cardio Narrative: Systolic murmur is heard Extremity Extremity Narrative: 1-2+ bilateral edema Charges/Coding Visit Charges Inpatient E&M: 95372 Init Hosp L2 Objective Data Vital Signs: Vital Signs Temp Pulse Resp BP Pulse Ox O2 Del Method O2 Flow Rate 99.5 F H 102 H 14 151/81 H 95 Mechanical Ventilator 8 01/26/25 14:00 01/26/25 14:03 01/26/25 14:03 01/26/25 14:00 01/26/25 14:00 01/26/25 14:00 01/25/25 09:04 FiO2 35 01/26/25 14:00 Oxygen Flow Rate (L/min) 8 Oxygen Delivery Method Mechanical Ventilator Weight: 163 lb 9.328 oz Body Mass Index (BMI) 28.0 Intake & Output: Intake and Output for Last 24 Hours 01/24/25 01/25/25 01/26/25 23:59 23:59 23:59 Intake Total 1041.36 / 1057.39 1867.17 / 1867.17 Output Total 475 / 475 250 / 250 Balance 566.36 / 582.39 1617.17 / 1617.17 Lab / Micro Data 01/26/25 11:00 01/26/25 03:25 Labs: Laboratory Results - last 24 hr 01/25/25 09:06: Urine Color Yellow, Urine Clarity Sl. Cloudy, Urine pH 6.0, Ur Specific [place] 1.025, Urine Protein 500 H, Urine Glucose (UA) Normal, Urine Ketones 5 H, Urine Occult Blood 50 H, Urine Nitrite Negative, Urine Bilirubin Negative, Urine Urobilinogen Normal, Ur Leukocyte Esterase Negative, Urine RBC 0-5 SEEN, Urine WBC 0-5 SEEN, Ur Squamous Epith Cells 0 SEEN, Urine Bacteria 3+, Hyaline Casts 10-25 SEEN, Urine Mucus 0 SEEN 01/25/25 14:54: Troponin T Hi Sens 2 Hr 31 H 01/26/25 00:37: WBC 6.9, RBC 2.92 L, Hgb 7.1 L, Hct 22.8 L, MCV 78.1 L, MCH 24.3 L, MCHC 31.1 L D, RDW Std Deviation 39.6, RDW Coeff of Augustin 13.8, Plt Count 212, MPV 11.2, Immature Gran % (Auto) 0.400, Neut % (Auto) 90.9 H, Lymph % (Auto) 4.4 L, [place] % (Auto) 4.2, Eos % (Auto) 0.0, Baso % (Auto) 0.1, Absolute Neuts (auto) 6.2, Absolute Lymphs (auto) 0.30 L, Nucleated RBC % 0 01/26/25 03:25: WBC 8.2, RBC 3.08 L, Hgb 7.4 L, Hct 23.7 L, MCV 76.9 L, MCH 24.0 L, MCHC 31.2 L, RDW Std Deviation 38.9, RDW Coeff of [place]in 13.9, Plt Count 240, MPV 10.9, Immature Gran % (Auto) 0.500, Neut % (Auto) 91.5 H, Lymph % (Auto) 3.3 L, [place] % (Auto) 4.6, Eos % (Auto) 0.0, Baso % (Auto) 0.1, Absolute Neuts (auto) 7.5, Absolute Lymphs (auto) 0.27 L, Nucleated RBC % 0, Sodium 135, Potassium 3.1 L, Chloride 86 L, Carbon Dioxide 39.2 H, Anion Gap 10, BUN 26 H, Creatinine 0.68 L, Estim Creat Clear Calc 65.19, Est GFR (MDRD) Non-Af 94, BUN/Creatinine Ratio 38.6 H, Glucose 114 H, Calcium 8.4 01/26/25 08:00: PT 18.2 H, INR 1.5, APTT 36.1, Iron 12 L, TIBC 280, Iron Saturation 4.1 L, Unsaturated IBC 268, Ferritin 29, Total Bilirubin 0.33, Direct Bilirubin 0.19, AST 21, ALT 19, Alkaline Phosphatase 44, Total Protein 5.4 L, Albumin 3.5, Globulin 1.9 L, Blood Type A POSITIVE, Antibody Screen NEGATIVE 01/26/25 11:00: Hgb 6.7 L, Hct 21.4 L Micro: Microbiology 01/25/25 09:15 Sputum, Induced/Lukens Gram Stain - Final 01/25/25 09:15 Sputum, Induced/Lukens Respiratory Culture - Preliminary GNR Poss Pseudomonas sp 01/25/25 09:04 Urine Catheter - Catheter Legionella Antigen - Final 01/25/25 09:04 Urine Catheter - Catheter Streptococcus pneumoniae Antigen (M - Final ABG Data ABG results: ABG 01/26/25 05:22 Specimen Type ART Sample Site L Radial pH 7.51 H Bicarbonate Actual 42.4 H Total CO2 44 Base Excess 20 H O2 Saturation 93 L O2 % 35.0 ABG pCO2 52.7 H ABG pO2 64 L Issa Test N/A Respiration Rate 12 O2 Delivery Device Adult Vent Vent Mode AC Tidal Volume 400.0 POC PEEP 5 Rhythm Strip Rhythm Strip: Sinus Tach Rate: 110 Ectopy: PAC(s) Cardiology Labs/Tests 01/25/25 09:06: Urine Color Yellow, Urine Clarity Sl. Cloudy, Urine pH 6.0, Ur Specific [place] 1.025, Urine Protein 500 H, Urine Glucose (UA) Normal, Urine Ketones 5 H, Urine Occult Blood 50 H, Urine Nitrite Negative, Urine Bilirubin Negative, Urine Urobilinogen Normal, Ur Leukocyte Esterase Negative, Urine RBC 0-5 SEEN, Urine WBC 0-5 SEEN 01/26/25 00:37: WBC 6.9, RBC 2.92 L, Hgb 7.1 L, Hct 22.8 L, MCV 78.1 L, MCH 24.3 L, MCHC 31.1 L D, Plt Count 212, MPV 11.2, Immature Gran % (Auto) 0.400, Neut % (Auto) 90.9 H, Lymph % (Auto) 4.4 L, [place] % (Auto) 4.2, Eos % (Auto) 0.0, Baso % (Auto) 0.1, Absolute Neuts (auto) 6.2, Nucleated RBC % 0 01/26/25 03:25: WBC 8.2, RBC 3.08 L, Hgb 7.4 L, Hct 23.7 L, MCV 76.9 L, MCH 24.0 L, MCHC 31.2 L, Plt Count 240, MPV 10.9, Immature Gran % (Auto) 0.500, Neut % (Auto) 91.5 H, Lymph % (Auto) 3.3 L, [place] % (Auto) 4.6, Eos % (Auto) 0.0, Baso % (Auto) 0.1, Absolute Neuts (auto) 7.5, Nucleated RBC % 0, Sodium 135, Potassium 3.1 L, Chloride 86 L, Carbon Dioxide 39.2 H, Anion Gap 10, BUN 26 H, Creatinine 0.68 L, Est GFR (MDRD) Non-Af 94, BUN/Creatinine Ratio 38.6 H, Glucose 114 H, Calcium 8.4 01/26/25 05:22: pH 7.51 H, Bicarbonate Actual 42.4 H, Base Excess 20 H, O2 Saturation 93 L, ABG pCO2 52.7 H, ABG pO2 64 L, Issa Test N/A 01/26/25 08:00: PT 18.2 H, INR 1.5, APTT 36.1, Iron 12 L, TIBC 280, Iron Saturation 4.1 L, Ferritin 29, Total Bilirubin 0.33, Direct Bilirubin 0.19 01/26/25 11:00: Hgb 6.7 L, Hct 21.4 L Rhythm: EKG: ECHO: Stress Test: Cardiac Cath: PCI: CT Surgery: Holter monitor: EPS: PPM: CXR: Chest CT Scan: Radiography Diagnostic Testing: Radiology Impression Chest X-Ray 01/26/25 08:15 IMPRESSION: No new acute cardiopulmonary process. Nasogastric tube coiled in the stomach. The tip is directed back towards the epigastrium. Reading Location: [id number] X-Ray 01/26/25 09:28 IMPRESSION: Repositioned and satisfactory located NG tube. Reading Location: [id number] Risk Score for UA/STEMI Assesmment (YES = 1) Risk Stratification Applicable: No
[2025-01-26 21:20] LABS: Hematocrit 26.2 % (37-47); Hemoglobin 8.8 g/dL (12.0-15.0)
[2025-01-26] MEDS: Chlorhexidine 15 ML PO (22:05)
[2025-01-26 22:55] LABS: Immature Reticulocyte Fraction 16.90 % (3.00-15.90); Platelet Count 224 K/mm3 (150-450); Reticulocyte Count 2.14 % (0.5-1.5)
[2025-01-27] VITALS (36 sets, daily range): BP systolic 100–162; BP diastolic 55–122; PULSE 47–116; RESP 12–26; TEMP 37.1–37.7; O2SAT 90–100; BMI 27.8
[2025-01-27] MEDS: Propofol 10MG/Ml 1,000 MG/100 ML Bottle 17.8 MG CONT INF ×2 (00:25→05:24)
[2025-01-27 00:34] LABS: Hematocrit 25.8 % (37-47); Hemoglobin 8.5 g/dL (12.0-15.0)
--- NOTE | 2025-01-27 03:05 | RAD_ITS ---
PROCEDURE: CHEST 1 VIEW (PORTABLE) 01/27/2025 REASON FOR EXAM: RESPIRATORY FAILURE TECHNIQUE: Frontal view of the chest. COMPARISON: 01/26/2025. FINDINGS: Endotracheal tube is in good position. Enteric feeding tube is in good position with its tip extending below the level of the left hemidiaphragm. Unchanged emphysema. Interval appearance of bilateral basilar atelectatic pulmonary changes. There is no demonstrated pleural abnormality. Enlarged cardiac silhouette. Normal mediastinum and eli. Normal visualized pulmonary arteries. Atheromatous plaques of the visualized aortic arch and descending thoracic aorta. Diffuse spondylosis of the visualized thoracic spine. Normal visualized ribs, clavicles. Degenerative joint disease. There is no demonstrated abnormality of the visualized soft tissue structures of the upper abdomen. RAD/Chest 1 View (Portable) IMPRESSION: Endotracheal tube is in good position. Enteric feeding tube is in good position with its tip extending below the level of the left hemidiaphragm. Unchanged emphysema. Interval appearance of bilateral basilar atelectatic pulmonary changes. Reading [facility]
[2025-01-27 04:35] LABS: Base Excess 20 mmol/L (-2 to +2); FI02 35.0; PEEP 5; PO2 72 mmHG (75-100); RR 12; SITE L Radial; SO2 95 % (95-99)
[2025-01-27] MEDS: fentaNYL drip 100 ML 10 MCG CONT INF (04:55)
[2025-01-27] MEDS: 0.9% Saline Lock 10 ML Syringe IV ×4 (05:24→21:40)
[2025-01-27] MEDS: Piperacil/Tazobactam 3.375 GM in 0.9% Normal Saline (50mL MB+) 50 ML IV ×3 (05:25→21:39)
--- NOTE | 2025-01-27 07:43 | PCM.PN.HOSP ---
Reason for Visit Chief Complaint: Progressive worsening shortness of breath for 2 weeks Subjective Subjective Patient remains intubated, weaning down on sedation for SBT, patient difficulty with communicating given continued patient is very frustrated. Discussed with patient's RN, she yesterday had some red frothy secretions in the tube and now has some that are little bit rust colored but seems to be slowing down Objective Data Objective Data Vital Signs: Vital Signs Temp Pulse Resp BP Pulse Ox O2 Del Method O2 Flow Rate 99 F 78 12 114/62 94 Mechanical Ventilator 8 01/27/25 06:00 01/27/25 06:36 01/27/25 06:36 01/27/25 06:00 01/27/25 06:36 01/27/25 06:36 01/25/25 09:04 FiO2 35 01/27/25 06:36 Oxygen Flow Rate (L/min) 8 Oxygen Delivery Method Mechanical Ventilator Weight: 74 kg Body Mass Index (BMI) 27.8 Intake & Output: Intake and Output for Last 24 Hours 01/25/25 01/26/25 01/27/25 23:59 23:59 23:59 Intake Total 1041.36 / 1057.39 2692.26 / 2720.06 332.38 / 332.38 Output Total 475 / 475 1800 / 1800 465 / 465 Balance 566.36 / 582.39 892.26 / 920.06 -132.62 / -132.62 Lab / Micro Data 01/27/25 08:27 01/27/25 08:27 Labs: Laboratory Results - last 24 hr 01/26/25 08:00: PT 18.2 H, INR 1.5, APTT 36.1, Iron 12 L, TIBC 280, Iron Saturation 4.1 L, Unsaturated IBC 268, Ferritin 29, Total Bilirubin 0.33, Direct Bilirubin 0.19, AST 21, ALT 19, Alkaline Phosphatase 44, Total Protein 5.4 L, Albumin 3.5, Globulin 1.9 L, Blood Type A POSITIVE, Antibody Screen NEGATIVE, Crossmatch See Detail 01/26/25 11:00: Hgb 6.7 L, Hct 21.4 L 01/26/25 20:46: Hgb 8.8 L, Hct 26.2 L, Retic Count 2.14 H, Immature Retic Fraction 16.90 H, Retic Hgb Equivalent 22.9 L 01/27/25 00:15: Hgb 8.5 L, Hct 25.8 L Micro: Microbiology 01/25/25 09:15 Sputum, Induced/Lukens Gram Stain - Final 01/25/25 09:15 Sputum, Induced/Lukens Respiratory Culture - Preliminary GNR Poss Pseudomonas sp 01/25/25 09:04 Urine Catheter - Catheter Legionella Antigen - Final 01/25/25 09:04 Urine Catheter - Catheter Streptococcus pneumoniae Antigen (M - Final 01/25/25 08:40 Mucosa - Nose SARS-CoV-2, Influenza & RSV (PCR) - Final ABG Data ABG results: ABG 01/27/25 04:31 Specimen Type ART Sample Site L Radial pH 7.49 H Bicarbonate Actual 43.7 H Total CO2 45 Base Excess 20 H O2 Saturation 95 O2 % 35.0 ABG pCO2 57.2 H ABG pO2 72 L Issa Test N/A Respiration Rate 12 O2 Delivery Device Adult Vent Vent Mode AC Tidal Volume 400.0 POC PEEP 5 Radiography Diagnostic Testing: Radiology Impression Chest X-Ray 01/26/25 08:15 IMPRESSION: No new acute cardiopulmonary process. Nasogastric tube coiled in the stomach. The tip is directed back towards the epigastrium. Reading Location: [facility] Echocardiogram 01/26/25 08:59 Interpretation Summary Severe aortic stenosis. The estimated ejection fraction is 70 %. Ordering Physician: Alessandro Palma Referring Physician: Arnulfo Fall Performed By: Lizzette Middleton, SHANNONCS, RVT X-Ray 01/26/25 09:28 IMPRESSION: Repositioned and satisfactory located NG tube. Reading Location: [id number] Chest X-Ray 01/27/25 03:05 IMPRESSION: Endotracheal tube is in good position. Enteric feeding tube is in good position with its tip extending below the level of the left hemidiaphragm. Unchanged emphysema. Interval appearance of bilateral basilar atelectatic pulmonary changes. Reading Location: [place] [address] Rhythm Strip Rhythm Strip: Sinus Tach Rate: 110 Ectopy: PAC(s) Physical Exam Narrative General: Intubated, frustrated HEENT: Atraumatic, normocephalic Eyes: Eyes closed, no spontaneous opening Neck: Supple Respiratory: Mechanically ventilated, diffuse wheezing Cardiovascular: Regular rate, systolic ejection murmur appreciated GI: Soft, nontender Extremities: 2+ lower extremity edema Musculoskeletal: Moving all extremities Neuro: No overt abnormalities appreciated Skin: No rashes appreciated Psych: Seems to attempt to cooperate but is frustrated Assessment & Plan Assessment/Plan (1) Acute respiratory failure: PLAN: Plan 69-year-old female with a history of severe aortic valve stenosis being worked up for TAVR in [place], COPD with chronic hypoxic respiratory failure on 3 L home O2, anxiety, GERD, restless leg syndrome, A-fib presented to [facility] ED 02/17 for worsening shortness of breath over 2 weeks. Patient required emergent intubation in the ED due to respiratory distress after she did not tolerate BiPAP. Patient diagnosed with COPD exacerbation from bilateral multifocal pneumonia with chest x-ray and CTA showing suspicion for multifocal pneumonia but no PE. Patient admitted to ICU and started on bronchodilators and Solu-Medrol. # Acute on chronic hypoxic respiratory failure secondary to COPD exacerbation from multifocal pneumonia - On 3 L at baseline O2 -Required intubation in the ED - CT on presentation no PE but suggestive of possible multifocal pneumonia and patient did become febrile -Respiratory culture growing gram-negative rods, now resulted as Pseudomonas - Continue antibiotics, Solu-Medrol, nebs - Washcoat Wiper on consult # Hemoptysis and anemia -Blood tinged sputum reportedly in ET tube and hemoglobin down trended to 6.7 from 8.4 on presentation -Patient transfused with a repeat hemoglobin of 8.8 that thus far has stayed stable -Eliquis on hold # A-fib with RVR - Cardiology evaluated, currently in sinus rhythm -Echo obtained and showed EF of 70% and severe aortic stenosis -Eliquis on hold -Patient continued on dronedarone, verapamil, and Coreg #Hypokalemia -Replace - Repeat this afternoon # Severe aortic stenosis - Reportedly being worked up in [place] for TAVR - Had heart cath several weeks ago as part of her workup -Cardiology evaluated, patient trialed on IV Lasix given elevated BNP and pitting edema in the event this also is contributing to her respiratory failure #GERD -Continue PPI #Depression/anxiety -Continue home medications # Restless leg syndrome -continue patient's home medication regimen #DVT ppx: SCDs Debby Gu MD Charges/Coding Visit Charges Inpatient E&M: 33588 Subs Hosp L2
[2025-01-27] MEDS: Verapamil SR 180 MG CAPSULE PO ×2 (08:10→21:40)
[2025-01-27] MEDS: Chlorhexidine 15 ML PO (08:11)
[2025-01-27 08:38] LABS: Hematocrit 27.9 % (37-47); Hemoglobin 8.9 g/dL (12.0-15.0); Immature Granulocytes Count 0.030 X10^3/uL (0.0-0.0); Mean Corp Hgb Conc 31.9 g/dL (32-36); Mean Corpuscular Volume 77.3 fL (81-99); Mean Platelet Vol. 10.2 fl (6.2-12.0); NRBC Flagged by Analyzer 0 % (0-5); POSITIVE DIFFERENTIAL YES; Platelet Count 199 K/mm3 (150-450); RBC Distribution Width CV 14.4 % (11.6-14.6); RBC Distribution Width SD 40.8 fl (35.1-43.9); Red Blood Count 3.61 M/mm3 (4.2-5.4); White Blood Count 6.4 K/mm3 (4.4-11.0)
--- NOTE | 2025-01-27 08:50 | PCM.PN.TICU ---
Objective Data Objective Data Vital Signs: Vital Signs Last response Temperature 37.2 C 01/27/25 08:00 Temperature Source Core 01/27/25 08:00 Pulse Rate 73 01/27/25 08:00 Respiratory Rate 12 01/27/25 08:00 Respiratory Effort Mechanically Ventilated 01/27/25 08:00 Respiratory Depth Normal 01/26/25 04:00 Respiratory Pattern Normal 01/27/25 06:36 Blood Pressure 119/63 01/27/25 08:00 Blood Pressure Mean 81 01/27/25 08:00 Blood Pressure Source Monitor 01/27/25 08:00 Blood Pressure Position Semi-Fowlers 01/27/25 08:00 Blood Pressure Location Right Arm 01/27/25 08:00 Pulse Ox 93 01/27/25 08:00 Oxygen Delivery Method Mechanical Ventilator 01/27/25 08:00 Oxygen Flow Rate (L/min) 8 01/25/25 09:04 Fraction of Inspired Oxygen (FIO2) 35 01/27/25 08:00 I&O: I&O Last 24 Hours 01/26/25 01/26/25 01/27/25 11:59 23:59 11:59 Intake Total 1655.58 / 2720.06 1036.68 / 2720.06 533.66 / 533.66 Output Total 100 / 1800 1700 / 1800 465 / 465 Balance 1555.58 / 920.06 -663.32 / 920.06 68.66 / 68.66 I&O: Total Stay 01/25/25 08:24 thru 01/27/25 08:00 Intake Total 4267.28 Output Total 2740 Balance 1527.28 Current Meds Ordered / Administered: Current meds ordered / Administered Generic Name Dose Route Start Last Admin Trade Name Freq PRN Reason Stop Dose Admin Acetaminophen 650 mg 01/25/25 12:26 Acetaminophen 325 Mg Tablet PO Q6H PRN PRN Pain 1-10 Or Fever>100.7 Albuterol/Ipratropium 3 ml 01/25/25 12:26 01/27/25 06:38 Ipratropium/Albuterol Sulfate 3 Ml Ampul.Neb INHALATION 3 ml Q4H.RT HINA Administration Apixaban 5 mg 01/25/25 22:00 01/25/25 20:59 Apixaban 5 Mg Tablet PO 5 mg On Hold: 01/26/25 00:29 BID HINA Administration Carvedilol 6.25 mg 01/25/25 17:00 01/27/25 08:09 Carvedilol 6.25 Mg Tablet PO Not Given BIDCM [facility] Protocol Chlorhexidine Gluconate 15 ml 01/26/25 22:00 01/27/25 08:11 Chlorhexidine 15 Ml PO 15 ml BID HINA Administration Chlorhexidine Gluconate 1 each 01/27/25 10:00 Chlorhexidine Gluc 2% Cloth 1 Each Towelette TOPICAL DAILY HINA Dronedarone 400 mg 01/25/25 17:00 01/27/25 08:11 Dronedarone Hydrochloride 400 Mg Tablet PO 400 mg BIDCM HINA Administration Fentanyl Citrate 50 mcg 01/25/25 08:45 Fentanyl 100 Mcg/2 Ml Ampul IV Q2H PRN PRN See dose instructions Propofol 1,000 mg in 100 mls @ 4.44 mls/hr 01/25/25 08:45 01/27/25 08:00 Diprivan CONT INF 40 mcg/kg/min .Q12H HINA 17.8 mls/hr Protocol Titration 10 MCG/KG/MIN Piperacillin Sod/Tazobactam 50 mls @ 12.5 mls/hr 01/25/25 11:00 01/27/25 05:25 Sod 3.375 gm/ Sodium Chloride IV 12.5 mls/hr Q8 HINA Administration Sodium Chloride 250 mls @ 15 mls/hr 01/25/25 11:51 01/26/25 08:00 IV 0 mls/hr .[id number] PRN Infusion Saline Flush Sodium Chloride 250 mls @ 15 mls/hr 01/25/25 11:51 IV .[id number] PRN Additional IVPB Infusion Fentanyl 100 mls @ 5 mls/hr 01/25/25 12:05 01/27/25 08:00 CONT INF 100 mcg/hr UD HINA 10 mls/hr Protocol Titration 50 MCG/HR Pantoprazole Sodium 40 mg/ 100 mls @ 300 mls/hr 01/26/25 10:00 01/26/25 11:03 Sodium Chloride IV Infused Q24 HINA Infusion Levofloxacin 750 mg in 150 mls @ 100 mls/hr 01/26/25 10:00 01/26/25 13:27 Levaquin Iv IV Infused Q24 HINA Infusion Methylprednisolone Sodium Succinate 40 mg 01/25/25 14:00 01/27/25 05:24 Methylprednisolone Sod Succ 40 Mg/Ml Vial IV 40 mg Q8 HINA Administration Montelukast Sodium 10 mg 01/26/25 10:00 01/27/25 08:10 Montelukast 10 Mg Tablet GT 10 mg DAILY HINA Administration Nystatin 1 applic 01/26/25 22:00 01/26/25 22:05 Nystatin Powder 15gm Bottle TOPICAL 1 applic BID HINA Administration Protocol Senna/Docusate Sodium 2 tablet 01/25/25 12:26 Senna/Docusate Sodium 1 Tablet PO BID PRN PRN Constipation Sodium Chloride 10 - 40 ml 01/25/25 11:51 01/27/25 05:24 0.9% Saline Lock 10 Ml Syringe IV 10 ml UD PRN Administration SALINE FLUSH Verapamil HCl 180 mg 01/25/25 22:00 01/27/25 08:10 Verapamil Sr 180 Mg Capsule PO 180 mg BID HINA Administration Protocol Lab / Micro Data 01/27/25 08:27 01/27/25 08:27 Labs: Laboratory Results - last 24 hr 01/26/25 08:00: Iron 12 L, TIBC 280, Iron Saturation 4.1 L, Unsaturated IBC 268, Ferritin 29, Blood Type A POSITIVE, Antibody Screen NEGATIVE, Crossmatch See Detail 01/26/25 11:00: Hgb 6.7 L, Hct 21.4 L 01/26/25 20:46: Hgb 8.8 L, Hct 26.2 L, Retic Count 2.14 H, Immature Retic Fraction 16.90 H, Retic Hgb Equivalent 22.9 L 01/27/25 00:15: Hgb 8.5 L, Hct 25.8 L 01/27/25 08:27: WBC 6.4, RBC 3.61 L, Hgb 8.9 L, Hct 27.9 L, MCV 77.3 L, MCH 24.7 L, MCHC 31.9 L, RDW Std Deviation 40.8, RDW Coeff of Augustin 14.4, Plt Count 199, MPV 10.2, Immature Gran % (Auto) 0.500, Neut % (Auto) 89.8 H, Lymph % (Auto) 4.4 L, [place] % (Auto) 5.3, Eos % (Auto) 0.0, Baso % (Auto) 0.0, Absolute Neuts (auto) 5.8, Absolute Lymphs (auto) 0.28 L, Nucleated RBC % 0 Micro: Microbiology 01/25/25 09:15 Sputum, Induced/Lukens Gram Stain - Final 01/25/25 09:15 Sputum, Induced/Lukens Respiratory Culture - Preliminary GNR Poss Pseudomonas sp ABG Data ABG results: ABG 01/27/25 04:31 Specimen Type ART Sample Site L Radial pH 7.49 H Bicarbonate Actual 43.7 H Total CO2 45 Base Excess 20 H O2 Saturation 95 O2 % 35.0 ABG pCO2 57.2 H ABG pO2 72 L Issa Test N/A Respiration Rate 12 O2 Delivery Device Adult Vent Vent Mode AC Tidal Volume 400.0 POC PEEP 5 Rhythm Strip Rhythm Strip: Sinus Tach Rate: 110 Ectopy: PAC(s) Imaging Radiology Impression Echocardiogram 01/26/25 08:59 Interpretation Summary Severe aortic stenosis. The estimated ejection fraction is 70 %. Ordering Physician: Alessandro Palma Referring Physician: Arnulfo Fall Performed By: Lizzette Middleton, RDCS, RVT X-Ray 01/26/25 09:28 IMPRESSION: Repositioned and satisfactory located NG tube. Reading Location: [id number] Chest X-Ray 01/27/25 03:05 IMPRESSION: Endotracheal tube is in good position. Enteric feeding tube is in good position with its tip extending below the level of the left hemidiaphragm. Unchanged emphysema. Interval appearance of bilateral basilar atelectatic pulmonary changes. Reading Location: [place] [address] Assessment and Plan . Assessment and plan: Subjective: No acute events o/n. Physical Exam: Gen - NAD, well-developed, intubated HEENT - MMM. ETT in place Resp - CTAB. Breathing nonlabored CV - RRR. No m/g/r Abd - Soft, NT, ND Ext - No c/c/e. Skin - No rashes? Neuro - Sedated, intubated. Can awaken and follow some commands I have reviewed the pertinent vital sign, laboratory, and imaging data. ASSESSMENT: # Acute on chronic hypoxic respiratory failure ? on home 3L NC? # COPD exacerbation # Hemoptysis # Severe ? undergoing workup for TAVR # Afib w/ RVR # Anxiety/panic attacks # h/o NSCLS s/p R lobectomy # Acute on chronic anemia # Restless leg syndrome # h/o tobacco use PLAN: -Cont vent VC 400/12/5/35%. Follow ABG/CXR -Add precedex. Wean sedation and can attempt SAT/SBT -Give additional lasix today, re-evaluate tmrw if additional needed. Cautious diuresis given severe -Cardiology following. Cont dronaderone for Afib -Cont IV solumedrol, duonebs -Cont empiric zosyn/levaquin given h/o PsA and steno. GNR in sputum, f/u final Cx results -Eliquis held for reported hemoptysis, improved today. May be able to resume soon FEN/GI: Start TF today if not extubated Proph DVT/GI: SCDs, protonix Critical Care Time: 50 mins The entirety of this encounter was done via telemedicine using both audio and video. Consent was unable to be obtained for the telemedicine encounter due to the patient's mental status.
[2025-01-27 09:30] LABS: Anion Gap 12 (5-15); BUN 21 mg/dL (4-19); BUN/Creat Ratio 28.6 RATIO (10-20); Calcium,Total 8.5 mg/dL (7.6-11.0); Carbon Dioxide 38.5 mmol/L (21.0-32.0); Chloride 87 mmol/L (98-108); Estimated Creatinine Clearance 65.40 ml/min (50-250); Glucose 101 mg/dL (70-99); Potassium 2.8 mmol/L (3.3-5.1)
[2025-01-27] MEDS: Pantoprazole Sodium 40 MG in 0.9% Normal Saline (100mL MB+) 100 ML 300 MG IV (09:30)
[2025-01-27] MEDS: Senna/Docusate Sodium 1 Tablet PO ×2 (09:33→21:40)
[2025-01-27] MEDS: CHLORHEXIDINE GLUC 2% CLOTH 1 EACH TOWELETTE TOPICAL ×2 (09:52→20:10)
[2025-01-27] MEDS: levoFLOXacin IV 750 MG/150 ML BAG 100 MG IV (09:54)
[2025-01-27] MEDS: Potassium Chloride 10mEq/100mL 10 MEQ/100 ML IV.SOLN. 100 MEQ IV BOLUS ×4 (11:33→15:25)
[2025-01-27 12:08] LABS: Allen Test Positive; Base Excess 24 mmol/L (-2 to +2); FI02 35.0; PEEP 5; PO2 60 mmHG (75-100); SITE L Radial; SO2 93 % (95-99)
[2025-01-27 18:31] LABS: Anion Gap 11 (5-15); BUN 19 mg/dL (4-19); BUN/Creat Ratio 27.2 RATIO (10-20); Calcium,Total 8.4 mg/dL (7.6-11.0); Carbon Dioxide 41.8 mmol/L (21.0-32.0); Chloride 88 mmol/L (98-108); Estimated Creatinine Clearance 65.40 ml/min (50-250); Glucose 78 mg/dL (70-99); Potassium 3.6 mmol/L (3.3-5.1)
--- NOTE | 2025-01-27 23:47 | CPS ---
RN placed pt on bipap for estimated 10 minutes before pt became anxious and could not tolerate any longer.
[2025-01-28] VITALS (29 sets, daily range): BP systolic 90–147; BP diastolic 53–118; PULSE 81–110; RESP 12–24; TEMP 37–37.6; O2SAT 89–100; BMI 26.4
[2025-01-28] MEDS: HYDROcodone Bitartrate/Apap 5/325 Tablet PO ×2 (01:15→22:18)
[2025-01-28] MEDS: 0.9% Saline Lock 10 ML Syringe IV ×3 (01:15→23:01)
[2025-01-28] MEDS: Piperacil/Tazobactam 3.375 GM in 0.9% Normal Saline (50mL MB+) 50 ML IV ×3 (04:44→22:20)
[2025-01-28 04:57] LABS: Hematocrit 29.6 % (37-47); Hemoglobin 9.2 g/dL (12.0-15.0); Immature Granulocytes Count 0.040 X10^3/uL (0.0-0.0); Mean Corp Hgb Conc 31.1 g/dL (32-36); Mean Corpuscular Volume 79.4 fL (81-99); Mean Platelet Vol. 11.0 fl (6.2-12.0); NRBC Flagged by Analyzer 0 % (0-5); POSITIVE DIFFERENTIAL YES; Platelet Count 208 K/mm3 (150-450); RBC Distribution Width CV 14.6 % (11.6-14.6); RBC Distribution Width SD 42.4 fl (35.1-43.9); Red Blood Count 3.73 M/mm3 (4.2-5.4); White Blood Count 8.5 K/mm3 (4.4-11.0)
[2025-01-28 05:19] LABS: Anion Gap 12 (5-15); BUN 16 mg/dL (4-19); BUN/Creat Ratio 27.8 RATIO (10-20); Calcium,Total 8.3 mg/dL (7.6-11.0); Carbon Dioxide 41.6 mmol/L (21.0-32.0); Chloride 88 mmol/L (98-108); Estimated Creatinine Clearance 63.85 ml/min (50-250); Glucose 77 mg/dL (70-99); Potassium 3.1 mmol/L (3.3-5.1)
--- NOTE | 2025-01-28 07:15 | PCM.PN.HOSP ---
Reason for Visit Chief Complaint: Progressive worsening shortness of breath for 2 weeks Subjective Subjective Patient not feeling very good right now as she is very anxious and she thinks it is making her breathing worse, still has a little bit of swelling in her feet, no chest pain or other acute complaints, is primarily inquiring about her anxiety medications being resumed Objective Data Objective Data Vital Signs: Vital Signs Temp Pulse Resp BP Pulse Ox O2 Del Method O2 Flow Rate 99.1 F 94 16 141/67 H 93 Nasal Cannula 4 01/28/25 06:00 01/28/25 06:35 01/28/25 06:35 01/28/25 06:00 01/28/25 06:35 01/28/25 06:35 01/28/25 06:35 FiO2 35 01/27/25 13:00 Oxygen Flow Rate (L/min) 4 Oxygen Delivery Method Nasal Cannula Weight: 70.3 kg Body Mass Index (BMI) 26.4 Intake & Output: Intake and Output for Last 24 Hours 01/26/25 01/27/25 01/28/25 23:59 23:59 23:59 Intake Total 2692.26 / 2720.06 1336.88 / 1336.88 50 / 50 Output Total 1800 / 1800 2915 / 2915 1100 / 1100 Balance 892.26 / 920.06 -1578.12 / -1578.12 -1050 / -1050 Lab / Micro Data 01/28/25 04:51 01/28/25 04:51 Labs: Laboratory Results - last 24 hr 01/27/25 08:27: WBC 6.4, RBC 3.61 L, Hgb 8.9 L, Hct 27.9 L, MCV 77.3 L, MCH 24.7 L, MCHC 31.9 L, RDW Std Deviation 40.8, RDW Coeff of Augustin 14.4, Plt Count 199, MPV 10.2, Immature Gran % (Auto) 0.500, Neut % (Auto) 89.8 H, Lymph % (Auto) 4.4 L, [place] % (Auto) 5.3, Eos % (Auto) 0.0, Baso % (Auto) 0.0, Absolute Neuts (auto) 5.8, Absolute Lymphs (auto) 0.28 L, Nucleated RBC % 0, Sodium 138, Potassium 2.8 L, Chloride 87 L, Carbon Dioxide 38.5 H, Anion Gap 12, BUN 21 H, Creatinine 0.72, Estim Creat Clear Calc 65.40, Est GFR (MDRD) Non-Af 90, BUN/Creatinine Ratio 28.6 H, Glucose 101 H, Calcium 8.5 01/27/25 17:23: Sodium 140, Potassium 3.6, Chloride 88 L, Carbon Dioxide 41.8 H, Anion Gap 11, BUN 19, Creatinine 0.68 L, Estim Creat Clear Calc 65.40, Est GFR (MDRD) Non-Af 94, BUN/Creatinine Ratio 27.2 H, Glucose 78, Calcium 8.4 01/28/25 04:51: WBC 8.5, RBC 3.73 L, Hgb 9.2 L, Hct 29.6 L, MCV 79.4 L, MCH 24.7 L, MCHC 31.1 L, RDW Std Deviation 42.4, RDW Coeff of Augustin 14.6, Plt Count 208, MPV 11.0, Immature Gran % (Auto) 0.500, Neut % (Auto) 88.6 H, Lymph % (Auto) 4.8 L, [place] % (Auto) 6.0, Eos % (Auto) 0.0, Baso % (Auto) 0.1, Absolute Neuts (auto) 7.5, Absolute Lymphs (auto) 0.41 L, Nucleated RBC % 0, Sodium 142, Potassium 3.1 L, Chloride 88 L, Carbon Dioxide 41.6 H, Anion Gap 12, BUN 16, Creatinine 0.59 L, Estim Creat Clear Calc 63.85, Est GFR (MDRD) Non-Af 98, BUN/Creatinine Ratio 27.8 H, Glucose 77, Calcium 8.3 Micro: Microbiology 01/25/25 08:31 Blood Culture (Wb) - Anticubital Left Blood Culture - Preliminary No growth in 48 hours. 01/25/25 08:31 Blood Culture (Wb) - Anticubital Right Blood Culture - Preliminary No growth in 48 hours. 01/25/25 09:15 Sputum, Induced/Lukens Gram Stain - Final 01/25/25 09:15 Sputum, Induced/Lukens Respiratory Culture - Final Pseudomonas aeruginosa 01/25/25 09:04 Urine Catheter - Catheter Legionella Antigen - Final 01/25/25 09:04 Urine Catheter - Catheter Streptococcus pneumoniae Antigen (M - Final 01/25/25 08:40 Mucosa - Nose SARS-CoV-2, Influenza & RSV (PCR) - Final ABG Data ABG results: ABG 01/27/25 12:04 Specimen Type ART Sample Site L Radial pH 7.55 H Bicarbonate Actual 46.4 H Total CO2 48 Base Excess 24 H O2 Saturation 93 L O2 % 35.0 ABG pCO2 52.7 H ABG pO2 60 L Issa Test Positive O2 Delivery Device Adult Vent Vent Mode PS POC PEEP 5 Rhythm Strip Rhythm Strip: Sinus Tach Rate: 110 Ectopy: PAC(s) Physical Exam Narrative General: Alert, oriented, appears anxious HEENT: Atraumatic, normocephalic Eyes: Anicteric, normal conjunctiva, extraocular movements grossly intact Neck: Supple Respiratory: Scattered wheezes, increased respiratory rate, poor air movement Cardiovascular: Low-grade tachycardia GI: Soft, nontender, nondistended Extremities: Mild pitting edema in feet Musculoskeletal: Moving all extremities Neuro: No overt focal neurological deficits Skin: No rashes appreciated Psych: Cooperative but very anxious Assessment & Plan Assessment/Plan (1) Acute respiratory failure: PLAN: Plan 69-year-old female with a history of severe aortic valve stenosis being worked up for TAVR in [place], COPD with chronic hypoxic respiratory failure on 3 L home O2, anxiety, GERD, restless leg syndrome, A-fib presented to [facility] ED 02/17 for worsening shortness of breath over 2 weeks. Patient required emergent intubation in the ED due to respiratory distress after she did not tolerate BiPAP. Patient diagnosed with COPD exacerbation from bilateral multifocal pneumonia with chest x-ray and CTA showing suspicion for multifocal pneumonia but no PE. Patient admitted to ICU and started on bronchodilators and Solu-Medrol. # Acute on chronic hypoxic respiratory failure secondary to COPD exacerbation from multifocal pneumonia - On 3 L at baseline O2 -Required intubation in the ED - CT on presentation no PE but suggestive of possible multifocal pneumonia and patient did become febrile -Respiratory culture growing gram-negative rods, now resulted as Pseudomonas - Continue antibiotics, Solu-Medrol, nebs - Technology Strategist on consult -01/28: Status post extubation, growing Pseudomonas in sputum, continue antibiotics, patient javid on nebs and steroids. Received additional IV diuresis yesterday and 1 dose today, proceeding cautiously given her severe aortic stenosis # Hemoptysis and anemia -Blood tinged sputum reportedly in ET tube and hemoglobin down trended to 6.7 from 8.4 on presentation -Patient transfused with a repeat hemoglobin of 8.8 that thus far has stayed stable -Eliquis on hold -01/28: Hemoglobin stable today, if no further episodes may be able to trial resuming Eliquis soon, appreciate pulm recommendations # A-fib with RVR - Cardiology evaluated, currently in sinus rhythm -Echo obtained and showed EF of 70% and severe aortic stenosis -Eliquis on hold -Patient continued on dronedarone, verapamil, and Coreg -01/28: Heart rate has been controlled, continue verapamil and dronedarone, decreased Coreg as she has got this inconsistently due to wide fluctuations in blood pressure, given her severe aortic stenosis will need to adjust these cautiously, holding Eliquis as above, hopeful to resume soon. Does have some low-grade tachycardia at present but is very anxious, suspect this is secondary to nebs and anxiety #Hypokalemia -Replace - Repeat this afternoon -01/28: Had improved however this a.m. was 3.1, further potassium replacement ordered # Severe aortic stenosis - Reportedly being worked up in [place] for TAVR - Had heart cath several weeks ago as part of her workup -Cardiology evaluated, patient trialed on IV Lasix given elevated BNP and pitting edema in the event this also is contributing to her respiratory failure -01/28: Patient received Lasix yesterday x 2 and tolerated this well, has had some fluctuations in blood pressure, another dose of Lasix given today, has got Coreg inconsistently so decreased the dose, still on verapamil and dronedarone, will need to follow-up on discharge in [place] for her TAVR evaluation #Depression/anxiety -01/28: Patient's home anxiety and depression medications resumed Chronic medical problems and/or problems not being actively addressed during today's encounter: #GERD -Continue PPI # Restless leg syndrome -continue patient's home medication regimen #DVT ppx: SCDs Debby Gu MD Charges/Coding Visit Charges Inpatient E&M: 23288 Subs Hosp L2
--- NOTE | 2025-01-28 08:53 | PCM.PN.TICU ---
Objective Data Objective Data Vital Signs: Vital Signs Last response Temperature 37.3 C 01/28/25 06:00 Temperature Source Core 01/28/25 06:00 Pulse Rate 94 01/28/25 06:35 Pulse Strength Normal (2+) 01/27/25 20:18 Respiratory Rate 16 01/28/25 06:35 Respiratory Effort Pursed Lip 01/28/25 04:00 Respiratory Depth Normal 01/28/25 04:00 Respiratory Pattern Normal 01/28/25 06:35 Blood Pressure 141/67 H 01/28/25 06:00 Blood Pressure Mean 91 01/28/25 06:00 Blood Pressure Source Monitor 01/28/25 06:00 Blood Pressure Position Semi-Fowlers 01/28/25 06:00 Blood Pressure Location Right Forearm 01/28/25 06:00 Pulse Ox 93 01/28/25 06:35 Oxygen Delivery Method Nasal Cannula 01/28/25 06:35 Oxygen Flow Rate (L/min) 4 01/28/25 06:35 Fraction of Inspired Oxygen (FIO2) 35 01/27/25 13:00 I&O: I&O Last 24 Hours 01/27/25 01/27/25 01/28/25 11:59 23:59 11:59 Intake Total 886.88 / 1336.88 450 / 1336.88 50 / 50 Output Total 465 / 2915 2450 / 2915 1100 / 1100 Balance 421.88 / -1578.12 -2000 / -1578.12 -1050 / -1050 I&O: Total Stay 01/25/25 08:24 thru 01/28/25 04:46 Intake Total 5120.50 Output Total 6290 Balance -1169.50 Current Meds Ordered / Administered: Current meds ordered / Administered Generic Name Dose Route Start Last Admin Trade Name Freq PRN Reason Stop Dose Admin Acetaminophen 650 mg 01/25/25 12:26 Acetaminophen 325 Mg Tablet PO Q6H PRN PRN Pain 1-10 Or Fever>100.7 Hydrocodone Bitart/Acetaminophen 1 tablet 01/28/25 00:35 01/28/25 01:15 Hydrocodone Bitartrate/Apap 5/325 Tablet PO 1 tablet BID PRN PRN Administration Pain Score 4-10 Albuterol/Ipratropium 3 ml 01/25/25 12:26 01/28/25 06:35 Ipratropium/Albuterol Sulfate 3 Ml Ampul.Neb INHALATION 3 ml Q4H.RT HINA Administration Apixaban 5 mg 01/25/25 22:00 01/25/25 20:59 Apixaban 5 Mg Tablet PO 5 mg On Hold: 01/26/25 00:29 BID HINA Administration Carvedilol 3.125 mg 01/28/25 08:00 [facility] Chlorhexidine Gluconate 1 each 01/27/25 10:00 01/27/25 20:10 Chlorhexidine Gluc 2% Cloth 1 Each Towelette TOPICAL 1 each DAILY HINA Administration Dronedarone 400 mg 01/25/25 17:00 01/27/25 16:39 Dronedarone Hydrochloride 400 Mg Tablet [facility] Guaifenesin 600 mg 01/28/25 10:00 Guaifenesin 600 Mg Tablet PO BID [facility] Piperacillin Sod/Tazobactam 50 mls @ 12.5 mls/hr 01/25/25 11:00 01/28/25 04:44 Sod 3.375 gm/ Sodium Chloride IV 12.5 mls/hr Q8 HINA Administration Sodium Chloride 250 mls @ 15 mls/hr 01/25/25 11:51 01/26/25 08:00 IV 0 mls/hr .[id number] PRN Infusion Saline Flush Sodium Chloride 250 mls @ 15 mls/hr 01/25/25 11:51 IV .[id number] PRN Additional IVPB Infusion Pantoprazole Sodium 40 mg/ 100 mls @ 300 mls/hr 01/26/25 10:00 01/27/25 09:55 Sodium Chloride IV Infused Q24 HINA Infusion Levofloxacin 750 mg in 150 mls @ 100 mls/hr 01/26/25 10:00 01/27/25 11:28 Levaquin Iv IV Infused Q24 HINA Infusion Potassium Chloride 10 meq in 100 mls @ 100 mls/hr 01/28/25 07:15 IV BOLUS 01/28/25 09:14 Q1H [facility] Methylprednisolone Sodium Succinate 40 mg 01/25/25 14:00 01/28/25 04:44 Methylprednisolone Sod Succ 40 Mg/Ml Vial IV 40 mg Q8 HINA Administration Montelukast Sodium 10 mg 01/26/25 10:00 01/27/25 08:10 Montelukast 10 Mg Tablet GT 10 mg DAILY HINA Administration Nystatin 1 applic 01/26/25 22:00 01/27/25 21:40 Nystatin Powder 15gm Bottle TOPICAL 1 applic BID HINA Administration Protocol Senna/Docusate Sodium 1 tablet 01/27/25 09:30 01/27/25 21:40 Senna/Docusate Sodium 1 Tablet PO 1 tablet BID HINA Administration Sodium Chloride 10 - 40 ml 01/25/25 11:51 01/28/25 04:45 0.9% Saline Lock 10 Ml Syringe IV 10 ml UD PRN Administration SALINE FLUSH Verapamil HCl 180 mg 01/25/25 22:00 01/27/25 21:40 Verapamil Sr 180 Mg Capsule PO 180 mg BID HINA Administration Protocol Lab / Micro Data 01/28/25 04:51 01/28/25 04:51 Labs: Laboratory Results - last 24 hr 01/27/25 08:27: Sodium 138, Potassium 2.8 L, Chloride 87 L, Carbon Dioxide 38.5 H, Anion Gap 12, BUN 21 H, Creatinine 0.72, Estim Creat Clear Calc 65.40, Est GFR (MDRD) Non-Af 90, BUN/Creatinine Ratio 28.6 H, Glucose 101 H, Calcium 8.5 01/27/25 17:23: Sodium 140, Potassium 3.6, Chloride 88 L, Carbon Dioxide 41.8 H, Anion Gap 11, BUN 19, Creatinine 0.68 L, Estim Creat Clear Calc 65.40, Est GFR (MDRD) Non-Af 94, BUN/Creatinine Ratio 27.2 H, Glucose 78, Calcium 8.4 01/28/25 04:51: WBC 8.5, RBC 3.73 L, Hgb 9.2 L, Hct 29.6 L, MCV 79.4 L, MCH 24.7 L, MCHC 31.1 L, RDW Std Deviation 42.4, RDW Coeff of Augustin 14.6, Plt Count 208, MPV 11.0, Immature Gran % (Auto) 0.500, Neut % (Auto) 88.6 H, Lymph % (Auto) 4.8 L, [place] % (Auto) 6.0, Eos % (Auto) 0.0, Baso % (Auto) 0.1, Absolute Neuts (auto) 7.5, Absolute Lymphs (auto) 0.41 L, Nucleated RBC % 0, Sodium 142, Potassium 3.1 L, Chloride 88 L, Carbon Dioxide 41.6 H, Anion Gap 12, BUN 16, Creatinine 0.59 L, Estim Creat Clear Calc 63.85, Est GFR (MDRD) Non-Af 98, BUN/Creatinine Ratio 27.8 H, Glucose 77, Calcium 8.3 Micro: Microbiology 01/25/25 08:31 Blood Culture (Wb) - Anticubital Left Blood Culture - Preliminary No growth in 48 hours. 01/25/25 08:31 Blood Culture (Wb) - Anticubital Right Blood Culture - Preliminary No growth in 48 hours. 01/25/25 09:15 Sputum, Induced/Lukens Gram Stain - Final 01/25/25 09:15 Sputum, Induced/Lukens Respiratory Culture - Final Pseudomonas aeruginosa ABG Data ABG results: ABG 01/27/25 12:04 Specimen Type ART Sample Site L Radial pH 7.55 H Bicarbonate Actual 46.4 H Total CO2 48 Base Excess 24 H O2 Saturation 93 L O2 % 35.0 ABG pCO2 52.7 H ABG pO2 60 L Issa Test Positive O2 Delivery Device Adult Vent Vent Mode PS POC PEEP 5 Rhythm Strip Rhythm Strip: Sinus Tach Rate: 110 Ectopy: PAC(s) Assessment and Plan . Assessment and plan: Subjective: Extubated yesterday, now on 4L NC. Feels dyspneic this AM, reports she is feeling anxious and needs her anxiety medication. Only used BiPAP for 1 hr last night Physical Exam: Gen - NAD, well-developed HEENT - MMM. Sclera anicteric Resp - Diminished BS. Mild tachypnea CV - RRR. No m/g/r Abd - Soft, NT, ND Ext - No c/c/e. Skin - No rashes? Neuro - Awake, can follow commands I have reviewed the pertinent vital sign, laboratory, and imaging data. ASSESSMENT: # Acute on chronic hypoxic respiratory failure ? on baseline home 3L NC. Extubated 01/27 # COPD exacerbation # Hemoptysis # Severe ? undergoing workup for TAVR # Afib w/ RVR # Anxiety/panic attacks # h/o NSCLS s/p R lobectomy # Acute on chronic anemia # Restless leg syndrome # h/o tobacco use PLAN: -On 4L NC near home baseline, wean to keep sats > 90%. Encourage IS, mobilization as tolerated -Resume anxiety medication. Encouraged further BiPAP use with sleep and for increased WOB -Give one dose lasix this AM, monitor response. Cautious diuresis given severe . Negative fluid balance yesterday -Cardiology following. Cont dronaderone for Afib -Cont IV solumedrol, duonebs -Cont levaquin given PsA in sputum, s/p several days of zosyn as well -Eliquis held for reported hemoptysis, improved now. May be able to resume soon FEN/GI: Swallow eval Proph DVT/GI: SCDs, protonix The entirety of this encounter was done via telemedicine using both audio and video. Consent was unable to be obtained for the telemedicine encounter due to the patient's mental status.
[2025-01-28] MEDS: Senna/Docusate Sodium 1 Tablet PO ×2 (08:59→22:19)
[2025-01-28] MEDS: Verapamil SR 180 MG CAPSULE PO ×2 (08:59→22:19)
[2025-01-28] MEDS: Pantoprazole Sodium 40 MG in 0.9% Normal Saline (100mL MB+) 100 ML 300 MG IV (09:01)
[2025-01-28] MEDS: Potassium Chloride 10mEq/100mL 10 MEQ/100 ML IV.SOLN. 100 MEQ IV BOLUS ×2 (09:06→10:13)
[2025-01-28] MEDS: levoFLOXacin IV 750 MG/150 ML BAG 100 MG IV (10:06)
[2025-01-29] VITALS (14 sets, daily range): BP systolic 109–123; BP diastolic 51–67; PULSE 74–103; RESP 12–20; TEMP 36.4–37.3; O2SAT 92–98; BMI 26.4
[2025-01-29 03:06] LABS: Hematocrit 28.3 % (37-47); Hemoglobin 9.0 g/dL (12.0-15.0); Immature Granulocytes Count 0.040 X10^3/uL (0.0-0.0); Mean Corp Hgb Conc 31.8 g/dL (32-36); Mean Corpuscular Volume 78.6 fL (81-99); Mean Platelet Vol. 11.2 fl (6.2-12.0); NRBC Flagged by Analyzer 0 % (0-5); POSITIVE DIFFERENTIAL YES; Platelet Count 184 K/mm3 (150-450); RBC Distribution Width CV 14.6 % (11.6-14.6); RBC Distribution Width SD 42.1 fl (35.1-43.9); Red Blood Count 3.60 M/mm3 (4.2-5.4); White Blood Count 7.0 K/mm3 (4.4-11.0)
[2025-01-29 03:32] LABS: Anion Gap 10 (5-15); BUN 15 mg/dL (4-19); BUN/Creat Ratio 27.6 RATIO (10-20); Calcium,Total 8.5 mg/dL (7.6-11.0); Carbon Dioxide 43.4 mmol/L (21.0-32.0); Chloride 86 mmol/L (98-108); Estimated Creatinine Clearance 63.85 ml/min (50-250); Glucose 85 mg/dL (70-99); Potassium 3.1 mmol/L (3.3-5.1)
[2025-01-29] MEDS: 0.9% Normal Saline (250mL Bag) 250 ML 15 ML IV (05:53)
[2025-01-29] MEDS: Piperacil/Tazobactam 3.375 GM in 0.9% Normal Saline (50mL MB+) 50 ML IV (05:53)
[2025-01-29] MEDS: 0.9% Saline Lock 10 ML Syringe IV ×2 (05:59→21:58)
--- NOTE | 2025-01-29 06:52 | PCM.PN.INT ---
Assessment & Plan Assessment/Plan (1) Acute respiratory failure: PLAN: Plan RECOMMENDATIONS: 1. Supplemental oxygen to maintain saturations at or above 90%. 2. Continue Levaquin to complete a total of 10 days of therapy. 3. Continue scheduled bronchodilators. 4. Once the patient is tolerating p.o. intake, transition IV Solu-Medrol to prednisone 40 mg daily x 5 additional days. 5. Encourage incentive spirometer use and mobilize patient as tolerated. 6. Will sign off from a critical care perspective. Please call with any additional questions. IMPRESSIONS: 1. Acute on chronic combined respiratory failure Unclear if this was truly precipitated by the patient's COPD with concurrent panic attacks versus sequelae of her valvular heart disease. She is currently being worked up for a TAVR in [place]. In addition, she has a known extensive tobacco abuse history with a questionable history of COPD, despite never having completed pulmonary function studies or having been evaluated by a marine engineering consultant in the past. According to her , she has a baseline oxygen requirement of 3 L/min. Her CT scan was not overtly concerning for a focal infiltrate or consolidation to suggest pneumonia. However, the patient did ultimately spike a fever. Therefore, antibiotics were initiated. Sputum culture was subsequently positive for Pseudomonas aeruginosa. Therefore, recommend continuing Levaquin to complete 10 days of therapy. The patient will be continued on scheduled bronchodilators and steroids. Once the patient is able to tolerate p.o. intake, okay to transition to prednisone 40 mg daily for 5 additional days. Continue to wean supplemental oxygen to maintain saturations at or above 90%. Encourage incentive spirometer use and mobilize patient as tolerated. 2. History of valvular heart disease/restless leg syndrome/anxiety/depression/former tobacco dependency/history of non-small cell lung cancer status post right lobectomy Complicates care, management, recovery and prognosis. Continue supportive measures as noted above. Continue outpatient workup/follow-up for possible TAVR. This note was generated with [employer] dictation software. It may contain incorrect words, spelling, and punctuation that were not noted in checking the note before signing. Subjective Subjective The patient was seen and examined at the bedside this morning. Events from the last 24 hours have been reviewed. The patient is currently afebrile, hemodynamically stable and maintaining appropriate oxygen saturations on 3 L/min via nasal cannula. The patient has done well from a respiratory perspective following extubation. She has no specific complaints this morning. White blood cell count is normal. Hemoglobin and platelet count are stable. Potassium is low at 3.1 with a normal creatinine. Objective Data Objective Data The patient's most recent lab work, culture data and imaging studies have all been personally reviewed. Surface echocardiogram from September 2024 demonstrated severe concentric LVH with an ejection fraction of 70% and stage I diastolic dysfunction. Severe aortic stenosis was noted. Sputum culture was positive for Pseudomonas. Vital Signs: Vital Signs Temp Pulse Resp BP Pulse Ox O2 Del Method O2 Flow Rate 98.2 F 82 20 H 123/51 H 98 Nasal Cannula 4 01/29/25 06:00 01/29/25 06:00 01/29/25 06:00 01/29/25 06:00 01/29/25 06:00 01/29/25 06:00 01/29/25 06:00 FiO2 35 01/28/25 23:45 Oxygen Flow Rate (L/min) 4 Oxygen Delivery Method Nasal Cannula Weight: 153 lb 14.122 oz Body Mass Index (BMI) 26.4 Intake & Output: Intake and Output for Last 24 Hours 01/27/25 01/28/25 01/29/25 23:59 23:59 23:59 Intake Total 1336.88 / 1336.88 960 / 960 50 / 50 Output Total 2915 / 2915 3625 / 3625 150 / 150 Balance -1578.12 / -1578.12 -2665 / -2665 -100 / -100 Lab / Micro Data Attestation: I reviewed the patient's lab results. 01/29/25 03:00 01/29/25 03:00 Labs: Laboratory Results - last 24 hr 01/29/25 03:00: WBC 7.0, RBC 3.60 L, Hgb 9.0 L, Hct 28.3 L, MCV 78.6 L, MCH 25.0 L, MCHC 31.8 L, RDW Std Deviation 42.1, RDW Coeff of Augustin 14.6, Plt Count 184, MPV 11.2, Immature Gran % (Auto) 0.600, Neut % (Auto) 91.2 H, Lymph % (Auto) 5.0 L, Hinds % (Auto) 3.1, Eos % (Auto) 0.0, Baso % (Auto) 0.1, Absolute Neuts (auto) 6.4, Absolute Lymphs (auto) 0.35 L, Nucleated RBC % 0, Sodium 139, Potassium 3.1 L, Chloride 86 L, Carbon Dioxide 43.4 H, Anion Gap 10, BUN 15, Creatinine 0.56 L, Estim Creat Clear Calc 63.85, Est GFR (MDRD) Non-Af 99, BUN/Creatinine Ratio 27.6 H, Glucose 85, Calcium 8.5 Micro: Microbiology 01/25/25 08:31 Blood Culture (Wb) - Anticubital Left Blood Culture - Preliminary No growth in 48 hours. 01/25/25 08:31 Blood Culture (Wb) - Anticubital Right Blood Culture - Preliminary No growth in 48 hours. 01/25/25 09:15 Sputum, Induced/Lukens Gram Stain - Final 01/25/25 09:15 Sputum, Induced/Lukens Respiratory Culture - Final Pseudomonas aeruginosa 01/25/25 09:04 Urine Catheter - Catheter Legionella Antigen - Final 01/25/25 09:04 Urine Catheter - Catheter Streptococcus pneumoniae Antigen (M - Final 01/25/25 08:40 Mucosa - Nose SARS-CoV-2, Influenza & RSV (PCR) - Final ABG Data ABG results: ABG 01/25/25 01/26/25 10:27 05:22 Specimen Type ART ART Sample Site L Brach L Radial pH 7.51 H 7.51 H Bicarbonate Actual 46.3 H 42.4 H Total CO2 48 44 Base Excess 23 H 20 H O2 Saturation 87 L 93 L O2 % 30.0 35.0 ABG pCO2 58.7 H 52.7 H ABG pO2 51 L 64 L Issa Test N/A Respiration Rate 16 12 O2 Delivery Device Adult Vent Adult Vent Vent Mode AC AC Tidal Volume 400.0 400.0 POC PEEP 5 5 Radiography Diagnostic Testing: Radiology Impression Brain CT 01/25/25 08:46 IMPRESSION: CHRONIC CHANGES. NO ACUTE FINDINGS. Reading Location: [id number] Chest CTA 01/25/25 08:51 IMPRESSION: No demonstrated PE, however, the contrast bolus within the pulmonary arteries is not optimal and a subtle filling defect could be present and overlooked particularly in the distal pulmonary artery branches No thoracic aortic aneurysm or dissection Emphysema with chronic interstitial changes, nonspecific pleural thickening in both hemithoraces, subsegmental atelectasis, and multifocal pneumonitis ET tube is 1 cm above the kaylan and should be pulled back 2-3 cm NG tube tip in the body of the stomach Degenerative bony changes Hiatal hernia with evidence of GE reflux Fatty liver Simple renal cysts, no specific follow-up needed Reading Location: [facility] Chest X-Ray 01/25/25 09:00 IMPRESSION: Tubes and lines in position. There are interstitial infiltrates throughout the right mid and lower lung and left lingular segment. There are trace bilateral effusions. Reading Location: [facility] Rhythm Strip Rhythm Strip: Sinus Tach Rate: 110 Ectopy: PAC(s) Physical Exam Const alert and no apparent distress General Appearance: cooperative HEENT normocephalic, head/scalp atraumatic and moist oral mucous membranes Eyes PERRL, EOMs intact bilaterally and conjunctivae normal Neck supple General: trachea midline Resp Auscultation: diminished lung sounds; Negative for rales, rhonchi or wheezes Cardio regular rate and regular rhythm Heart Sounds: murmur GI soft to palpation and non-tender GI Narrative: Protuberant abdomen Extremity General Extremity: edema bilateral lower extremity; Negative for clubbing Skin no rashes or lesions noted Neuro CN's II-XII intact bilaterally, moves all extremities and no focal motor deficits Psych Mood & Affect: flat affect Charges/Coding Visit Charges Inpatient E&M: 16038 Subs Hosp L2
--- NOTE | 2025-01-29 07:43 | PN.HOSP_ITS ---
Reason for Visit Chief Complaint: Progressive worsening shortness of breath for 2 weeks Subjective Subjective He is feeling better today compared to yesterday, still struggling with her breathing and anxiety but is finally medication for anxiety very helpful, there is query if she could have some aspiration so she is presently n.p.o. except meds in applesauce with supervision, awaiting further swallow eval, still is productive cough Objective Data Objective Data Vital Signs: Vital Signs Temp Pulse Resp BP Pulse Ox O2 Del Method O2 Flow Rate 98.2 F 74 16 123/51 H 98 Nasal Cannula 3 01/29/25 06:00 01/29/25 07:08 01/29/25 07:08 01/29/25 06:00 01/29/25 07:09 01/29/25 07:09 01/29/25 07:09 FiO2 35 01/28/25 23:45 Oxygen Flow Rate (L/min) 3 Oxygen Delivery Method Nasal Cannula Weight: 69.8 kg Body Mass Index (BMI) 26.4 Intake & Output: Intake and Output for Last 24 Hours 01/27/25 01/28/25 01/29/25 23:59 23:59 23:59 Intake Total 1336.88 / 1336.88 960 / 960 50 / 50 Output Total 2915 / 2915 3625 / 3625 150 / 150 Balance -1578.12 / -1578.12 -2665 / -2665 -100 / -100 Lab / Micro Data 01/29/25 03:00 01/29/25 03:00 Labs: Laboratory Results - last 24 hr 01/29/25 03:00: WBC 7.0, RBC 3.60 L, Hgb 9.0 L, Hct 28.3 L, MCV 78.6 L, MCH 25.0 L, MCHC 31.8 L, RDW Std Deviation 42.1, RDW Coeff of Augustin 14.6, Plt Count 184, MPV 11.2, Immature Gran % (Auto) 0.600, Neut % (Auto) 91.2 H, Lymph % (Auto) 5.0 L, [place]bour % (Auto) 3.1, Eos % (Auto) 0.0, Baso % (Auto) 0.1, Absolute Neuts (auto) 6.4, Absolute Lymphs (auto) 0.35 L, Nucleated RBC % 0, Sodium 139, Potassium 3.1 L, Chloride 86 L, Carbon Dioxide 43.4 H, Anion Gap 10, BUN 15, Creatinine 0.56 L , Estim Creat Clear Calc 63.85, Est GFR (MDRD) Non-Af 99, BUN/Creatinine Ratio 27.6 H, Glucose 85, Calcium 8.5 Micro: Microbiology 01/25/25 08:31 Blood Culture (Wb) - Anticubital Left Blood Culture - Preliminary No growth in 48 hours. 01/25/25 08:31 Blood Culture (Wb) - Anticubital Right Blood Culture - Preliminary No growth in 48 hours. 01/25/25 09:15 Sputum, Induced/Lukens Gram Stain - Final 01/25/25 09:15 Sputum, Induced/Lukens Respiratory Culture - Final Pseudomonas aeruginosa 01/25/25 09:04 Urine Catheter - Catheter Legionella Antigen - Final 01/25/25 09:04 Urine Catheter - Catheter Streptococcus pneumoniae Antigen (M - Final 01/25/25 08:40 Mucosa - Nose SARS-CoV-2, Influenza & RSV (PCR) - Final Rhythm Strip Rhythm Strip: Sinus Tach Rate: 110 Ectopy: PAC(s) Physical Exam Narrative General: Alert, appears less anxious today HEENT: Atraumatic, normocephalic Eyes: Anicteric, normal conjunctiva, extraocular movements grossly intact Neck: Supple Respiratory: Respiratory effort improved, still suboptimal air movement but wheezing improving Cardiovascular: Regular rate GI: Soft, nontender, nondistended Extremities: Mild pitting edema in feet Musculoskeletal: Moving all extremities Neuro: No overt focal neurological deficits Skin: No rashes appreciated Psych: Cooperative and pleasant Assessment & Plan Assessment/Plan (1) Acute respiratory failure: PLAN: Plan 69-year-old female with a history of severe aortic valve stenosis being worked up for TAVR in [place], COPD with chronic hypoxic respiratory failure on 3 L home O2, anxiety, GERD, restless leg syndrome, A-fib presented to [facility] ED 02/17 for worsening shortness of breath over 2 weeks. Patient required emergent intubation in the ED due to respiratory distress after she did not tolerate BiPAP. Patient diagnosed with COPD exacerbation from bilateral multifocal pneumonia with chest x-ray and CTA showing suspicion for multifocal pneumonia but no PE. Patient admitted to ICU and started on bronchodilators and Solu-Medrol. # Acute on chronic hypoxic respiratory failure secondary to COPD exacerbation from multifocal pneumonia - On 3 L at baseline O2 -Required intubation in the ED - CT on presentation no PE but suggestive of possible multifocal pneumonia and patient did become febrile -Respiratory culture growing gram-negative rods, now resulted as Pseudomonas - Continue antibiotics, Solu-Medrol, nebs - Licensed Physical Therapy Assistant on consult -01/28: Status post extubation, growing Pseudomonas in sputum, continue antibiotics, patient javid on nebs and steroids. Received additional IV diuresis yesterday and 1 dose today, proceeding cautiously given her severe aortic stenosis -01/29: Presently 98% on 3 L of nasal cannula, remains on nebs, antibiotics, Methylpred. Plan will be to continue Levaquin for total of 10 days, ultimate plan will be to transition patient to oral prednisone 40 mg daily for an additional 5 days # Hemoptysis and anemia -Blood tinged sputum reportedly in ET tube and hemoglobin down trended to 6.7 from 8.4 on presentation -Patient transfused with a repeat hemoglobin of 8.8 that thus far has stayed stable -Eliquis on hold -01/28: Hemoglobin stable today, if no further episodes may be able to trial resuming Eliquis soon, appreciate pulm recommendations -01/29: Hemoglobin is now stable, no further episodes noted, will resume Eliquis # A-fib with RVR - Cardiology evaluated, currently in sinus rhythm -Echo obtained and showed EF of 70% and severe aortic stenosis -Eliquis on hold -Patient continued on dronedarone, verapamil, and Coreg -01/28: Heart rate has been controlled, continue verapamil and dronedarone, decreased Coreg as she has got this inconsistently due to wide fluctuations in blood pressure, given her severe aortic stenosis will need to adjust these cautiously, holding Eliquis as above, hopeful to resume soon. Does have some low-grade tachycardia at present but is very anxious, suspect this is secondary to nebs and anxiety -01/29: Blood pressure has been more consistent and heart rate has been stable on current dose of medications #Hypokalemia -Replace - Repeat this afternoon -01/28: Had improved however this a.m. was 3.1, further potassium replacement ordered -01/29: Replaced with IV potassium, likely low again she got further Lasix, if Lasix would be scheduled would likely need to schedule potassium replacement # Severe aortic stenosis - Reportedly being worked up in [place] for TAVR - Had heart cath several weeks ago as part of her workup -Cardiology evaluated, patient trialed on IV Lasix given elevated BNP and pitting edema in the event this also is contributing to her respiratory failure -01/28: Patient received Lasix yesterday x 2 and tolerated this well, has had some fluctuations in blood pressure, another dose of Lasix given today, has got Coreg inconsistently so decreased the dose, still on verapamil and dronedarone, will need to follow-up on discharge in [place] for her TAVR evaluation -01/29: Tolerated additional Lasix yesterday, presently balance is -2800 #Depression/anxiety -01/28: Patient's home anxiety and depression medications resumed -01/29: Doing better back on home medications, Xanax as needed started by plasma processing technician over the weekend, patient reports she is getting set up with outpatient palliative care to discuss being prescribed this long-term for her anxiety Chronic medical problems and/or problems not being actively addressed during today's encounter: #GERD -Continue PPI # Restless leg syndrome -continue patient's home medication regimen #DVT ppx: SCDs Debby Gu MD Charges/Coding Visit Charges Inpatient E&M: 41702 Subs Hosp L2
[2025-01-29] MEDS: Senna/Docusate Sodium 1 Tablet PO ×2 (08:14→21:50)
[2025-01-29] MEDS: Verapamil SR 180 MG CAPSULE PO ×2 (08:16→21:51)
--- NOTE | 2025-01-29 09:31 | CASEMGMT ---
Social Work SW spoke w/pt in room in regard to LW/POA. Pt states she completed them with her oil field caser, they just need notarized by her friend. Pt has her significant other Mike neymar as the healthcare POA, she does not want her son Vilma in particular involved. SW offered multiple times to complete the papers w/the pt while here, pt declined, states I promise I will get them done. SW remains available should pt decide she does want to complete the documents while here. ANAM Markham
[2025-01-29] MEDS: Potassium Chloride 10mEq/100mL 10 MEQ/100 ML IV.SOLN. 100 MEQ IV BOLUS ×2 (09:52→12:07)
[2025-01-29] MEDS: APIXABAN 5 MG TABLET PO ×2 (09:52→21:57)
[2025-01-29] MEDS: CHLORHEXIDINE GLUC 2% CLOTH 1 EACH TOWELETTE TOPICAL (09:52)
--- NOTE | 2025-01-29 10:14 | CASEMGMT ---
Discharge Planning A list of?SNF providers including quality and resource use data and consistent with the patient's preferred geographic region, medical needs, and insurance network was created in [employer].? This list was provided to the RN SAM. Jocelynn Feliciano, Discharge Planning Asst.
--- NOTE | 2025-01-29 10:47 | CASEMGMT ---
Addendum entered by Satya Altamirano 01/29/25 14:23: RN SAM back to the pt's room at this time to follow up on SNF preferences. Pt states that she has not had time to review the list yet. Pt states that she also wants to talk with her family about the list and states that she will not be ready to give this senior writer preferences until tomorrow morning at the earliest. CM to continue to follow. Original Note: The hospitalist reports pt will likely be medically ready for DC x 48 hours from now and is recommending SNF placement for the pt. SNF list was provided by the [facility], see note. RN CM To the pt room at this time. Pt is about to work with therapy. Pt states that she is agreeable to short term SNF placement. Requested the pt to select top 3 preferences from list for referrals. Pt states understanding and denies further questions or concerns at this time. CM to follow. [facility] notified of DC plan and pt's Direction Home CM (Palma Zamarripa).
[2025-01-29] MEDS: levoFLOXacin IV 750 MG/150 ML BAG 100 MG IV (12:08)
--- NOTE | 2025-01-29 14:26 | ST.MBS ---
Modified Barium Swallow Patient Information Study Date: 01/29/25 Study Time: 13:30 Direct Billable Minutes: 105 Total Minutes procedure & reportin Diagnosis: PNA J69.0; Hypoxia R09.02 Referring Physician: Debby Gu Reason for Referral: Assess swallow function, assess risk for aspiration, and determine recommendations for least restrictive diet textures and compensatory strategies to improve swallowing safety. Medical History: The patient presented to [facility] ED with worsening SOB, unable to speak upon arrival to ED, fast and shallow breathing, unable to follow commands. Pt was emergently intubated. Baseline 3L via nasal cannula. PMH below, significant for COPD and A fib. Recently quit smoking. Significant anxiety and panic attack. Pt admitted to ICU, managed for PNA and respiratory failure. Extubated 01/28/2025. ST ordered due to concern for dysphagia w/ pills. BSE 01/29/2025 revealed intermittent wet coughing w/ po trials and recommended NPO - ok for sips/chips supervised and meds whole in w/ plan for MBSS this afternoon prior to diet advancement. Medical History Palliative care encounter Acute anemia Acute respiratory insufficiency Anxiety Anxiety and depression Respiratory insufficiency COPD with acute exacerbation Afib Aortic valve stenosis RLS (restless legs syndrome) History of ETOH abuse Chronic hypoxic respiratory failure, on home oxygen therapy COPD (chronic obstructive pulmonary disease) Anxiety Depression Smoker Asthma Hypertension Migraines Current Diet Ordered: NPO - sips/chips Dentition: Natural Teeth and Missing Teeth Mental Status: WNL Respiratory Status: Oxygenating on Room Air Penetration-Aspiration Scale Penetration-Aspiration Scale: OBJECTIVE ASSESSMENT OF SWALLOW FUNCTION (QUANTITATIVE ? PER TRIAL): PENETRATION / ASPIRATION SCALE (MONGE): 1 = does not enter airway 2 = enters airway/above vocal folds/ejected 3 = enters airway/above vocal folds/not ejected 4 = enters airway/contacts vocal folds/ejected 5 = enters airway/contacts vocal folds/not ejected 6 = enters airway/below vocal folds/ejected 7 = enters airway/below vocal folds/not ejected despite effort 8 = enters airway/below vocal folds/no effort VIDEOFLOROSCOPIC SCALE SCORE (MONGE): Grade I = aspiration of material that has penetrated into the laryngeal vestibule, intact cough reflex Grade II = aspiration < 10 % of the bolus, intact cough reflex Grade III = aspiration of < 10 % of the bolus, reduced cough reflex or aspiration of > 10 % of the bolus, intact cough reflex Grade IV = aspiration of > 10 % of the bolus, reduced cough reflex Penetration-Aspiration Scale Score Thin Liquid via teaspoon: Result: 8= enters airway/below vocal folds/no effort Thin Liquid via teaspoon Effortful swallow: Result: 8= enters airway/below vocal folds/no effort Thin Liquid via teaspoon Chin tuck: Result: 5= enters airways/contacts vocal folds/not ejected Waikele Thick Liquid via teaspoon: Result: 2= enter airway/above vocal folds/ejected [place]aikele Thick Liquid via teaspoon Trial 2: Result: 1= does not enter airway [place]kele Thick Liquid via large single sip: cup: Result: 2= enter airway/above vocal folds/ejected Pudding via teaspoon: Result: 1= does not enter airway Comment: Esophageal screen - Retention throughout the middle and lower esophagus. Waikele Thick Liquid via single sip: straw: Result: 1= does not enter airway Comment: Esophageal screen - Liquid wash mostly cleared pudding retention through the LES. 1/2 Cookie: Result: 1= does not enter airway Comment: Esophageal screen - Retention throughout the esophagus. Waikele Thick Liquid via small single sip: cup: Result: 2= enter airway/above vocal folds/ejected Comment: Esophageal screen - Somewhat effective in clearing esophageal retention, but significant retention throughout the esophagus. [place]kele Thick Liquid via small single sip: cup Trial 2: Result: 3= enters airways/above vocal folds/not ejected Comment: Cued a second swallow Esophageal screen - Second liquid wash mostly cleared cookie from esophagus but mild retention in the lower esophagus remained. Oral Phase Labial Seal: Escape progressing to mid-chin Tongue Control During Bolus Hold: Posterior escape of less than half of bolus Bolus Preparation/Mastication: Disorganized chewing/mashing with solid pieces of bolus unchewed (Small pieces of cookie appeared not fully chewed) Bolus Transport/Lingual Motion: Slowed tongue motion Oral Residue: Residue collection on oral structures Pharyngeal Phase Initiation of Pharyngeal Swallow: Bolus head in pyriforms Soft Palate Elevation: No bolus between soft palate and pharyngeal wall Laryngeal Elevation: Partial superior movement thyroid cart/partial apprx aryt-epig petiole Anterior Hyoid Excursion: Partial anterior movement Epiglottic Movement: Partial inversion Laryngeal Vestibule Closure at Height of Swallow: Incomplete; narrow column of air/contrast in laryngeal vestibule Pharyngeal Stripping Wave: Present - complete Pharyngoesophageal Segment Opening: Complete distension and complete duration; no obstruction of flow Tongue Base Retraction: Narrow column of contrast between tongue base & post. pharyngeal wall Pharyngeal Residue: Trace residue within or on pharyngeal structures Esophageal Phase Esophageal Clearance: Esophageal retention Diagnosis/Impression Diagnosis: Moderate oropharyngeal dysphagia R13.12; Esophageal dysphagia R13.14 MBS Impressions: The oral phase is primarily marked by... -Decreased bolus control w/ posterior loss of <1/2 of thin liquids via tsp to the pyriform sinuses prior to swallow onset. -Slowed tongue motion for A-P transport. -Decreased and slowed mastication of cookie w/ small pieces of Lawanda Doone not appearing fully chewed. The pharyngeal phase is primarily marked by... -Delayed swallow onset. -Mildly decreased TB retraction; otherwise, good pharyngeal motility. -Decreased airway closure due to decreased laryngeal elevation, decreased anterior hyoid excursion, and partial epiglottic inversion. -Silent aspiration of thin liquids by tsp w/o use of strategies and thin by tsp w/ effortful swallow. Laryngeal penetration to the vocal folds w/ thin liquids by tsp w/ chin tuck w/o complete ejection placing the patient at risk for post prandial aspiration. The esophageal phase is primarily marked by... -Esophageal retention of pudding in the middle and lower esophagus, which mostly cleared w/ 1 liquid wash. -Esophageal retention of cookie throughout the esophagus, which mostly cleared w/ 2 liquid washes. Recommendations Diet: Easy to Chew Textures and Mildly Thick Liquids Comment: Intermittent cough and re-swallow Medications whole in Moisten dry texturse Compensatory Strategies: Small Bites, Small Sips, Slow Rate, Multiple Swallows (Double swallows), Alternate bites/solids and sips/liquids (1-2 sips after each bite), Sitting upright and Remain sitting upright for 30 minutes after PO intake Supervision: 1:1 Direct Supervision (Ok for mildly thick liquids at bedside/chairside w/ distant supervision if sitting upright) Recommend Repeat Modified Barium Swallow: Yes (in 2-4 weeks after implementation of oropharyngeal exercise program to re-assess aspiration risk w/ liquids prior to diet advancement due to SILENT aspiration of thin liquids) Need for Skilled Speech Therapy Services: Yes Comment: -Train the patient in use of strategies to decrease risk for aspiration and reflux aspiration. -Ongoing assessment of diet tolerance of recommended textures. -Train the patient in oropharyngeal exercise program to improve bolus control, TB retraction, airway closure (lingual resistance, Alan Graham, CTAR). Recommended Referrals: GI Consult (OP GI consult recommended, UNDERGROUND MINE MACHINERY MECHANIC informed physician) Education Completed: 1. Described result of evaluation., 2. Pt understands evaluation & agrees with goals and treatment plan. and 7. Pt requires further education on strategies & risks. Status Active ST Patient: Active Contact Information [facility] Speech Therapy:: Monae Hutchinson M.A. [facility]-UNDERGROUND MINE MACHINERY MECHANIC Speech-Language Pathologist [facility] [address] [place] [address] [email or web address] [phone]
[2025-01-30] VITALS (14 sets, daily range): BP systolic 115–166; BP diastolic 59–103; PULSE 69–99; RESP 12–20; TEMP 36.8–37.1; O2SAT 91–100; BMI 26.4
[2025-01-30 05:55] LABS: Hematocrit 29.2 % (37-47); Hemoglobin 8.9 g/dL (12.0-15.0); Immature Granulocytes Count 0.050 X10^3/uL (0.0-0.0); Mean Corp Hgb Conc 30.5 g/dL (32-36); Mean Corpuscular Volume 80.2 fL (81-99); Mean Platelet Vol. 12.0 fl (6.2-12.0); NRBC Flagged by Analyzer 0 % (0-5); POSITIVE DIFFERENTIAL YES; Platelet Count 195 K/mm3 (150-450); RBC Distribution Width CV 14.8 % (11.6-14.6); RBC Distribution Width SD 43.3 fl (35.1-43.9); Red Blood Count 3.64 M/mm3 (4.2-5.4); White Blood Count 6.1 K/mm3 (4.4-11.0)
[2025-01-30 06:13] LABS: Anion Gap 9 (5-15); BUN 18 mg/dL (4-19); BUN/Creat Ratio 30.6 RATIO (10-20); Calcium,Total 8.6 mg/dL (7.6-11.0); Carbon Dioxide 43.5 mmol/L (21.0-32.0); Chloride 89 mmol/L (98-108); Estimated Creatinine Clearance 63.85 ml/min (50-250); Glucose 179 mg/dL (70-99); Potassium 3.2 mmol/L (3.3-5.1)
[2025-01-30] MEDS: 0.9% Saline Lock 10 ML Syringe IV ×2 (06:36→21:24)
[2025-01-30] MEDS: Verapamil SR 180 MG CAPSULE PO ×2 (09:14→21:22)
[2025-01-30] MEDS: Senna/Docusate Sodium 1 Tablet PO (09:15)
[2025-01-30] MEDS: APIXABAN 5 MG TABLET PO ×2 (09:15→21:23)
[2025-01-30] MEDS: levoFLOXacin IV 750 MG/150 ML BAG 100 MG IV (10:42)
[2025-01-30] MEDS: Potassium Chloride 10mEq/100mL 10 MEQ/100 ML IV.SOLN. 100 MEQ IV BOLUS ×3 (10:42→13:41)
--- NOTE | 2025-01-30 11:18 | CASEMGMT ---
Social Work SW spoke with the about her choices for a SNF. Patient chose 1st choice- [facility], 2nd choice is [facility] and 3rd is [facility]. SW asked DC medical assistant supervisor to send a referral to [facility] for the patient. ALTA Valdes
--- NOTE | 2025-01-30 11:47 | CASEMGMT ---
Addendum entered by Jocelynn Feliciano 01/30/25 13:30: [facility] asked to submit for precert. Jocelynn Feliciano DC Planning Asst. Addendum entered by Jocelynn Feliciano 01/30/25 12:48: [facility] has accepted. 's updated. Jocelynn Feliciano DC Planning Asst. Original Note: Discharge Planning Referral sent to [facility]. Jocelynn Feliciano DC Planning Asst.
[2025-01-30] MEDS: Potassium Chloride Oral Tablet 20 MEQ 40 MEQ PO (12:12)
--- NOTE | 2025-01-30 13:34 | CASEMGMT ---
Addendum entered by Francine Baker 01/30/25 13:40: SW called the boyfriend Mike and updated on the DC plan. Original Note: Social Work SW spoke with the patient and informed her that she has been accepted at [facility]. SW informed her she should DC there in the next couple of days. Patient reported SW can call her boyfriend Mike and left him know. ALTA Valdes
--- NOTE | 2025-01-30 14:25 | PCM.PN.HOSP ---
Reason for Visit Chief Complaint: Progressive worsening shortness of breath for 2 weeks Subjective Subjective Continues to feel slowly improved, still having some cough and shortness of breath but better than previous, lower extremity swelling improved, still in a lot of anxiety and primarily concerned about that Objective Data Objective Data Vital Signs: Vital Signs Temp Pulse Resp BP Pulse Ox O2 Del Method O2 Flow Rate 98.7 F 91 16 115/68 95 Nasal Cannula 3 01/30/25 13:47 01/30/25 13:47 01/30/25 13:47 01/30/25 13:47 01/30/25 13:47 01/30/25 14:00 01/30/25 14:00 FiO2 35 01/30/25 05:50 Oxygen Flow Rate (L/min) 3 Oxygen Delivery Method Nasal Cannula Weight: 70.3 kg Body Mass Index (BMI) 26.4 Intake & Output: Intake and Output for Last 24 Hours 01/28/25 01/29/25 01/30/25 23:59 23:59 23:59 Intake Total 960 / 960 519.25 / 819.25 1000 / 1000 Output Total 3625 / 3625 150 / 150 400 / 400 Balance -2665 / -2665 369.25 / 669.25 600 / 600 Lab / Micro Data 01/30/25 05:04 01/30/25 05:04 Labs: Laboratory Results - last 24 hr 01/30/25 05:04: WBC 6.1, RBC 3.64 L, Hgb 8.9 L, Hct 29.2 L, MCV 80.2 L, MCH 24.5 L, MCHC 30.5 L, RDW Std Deviation 43.3, RDW Coeff of Augustin 14.8 H, Plt Count 195, MPV 12.0, Immature Gran % (Auto) 0.800, Neut % (Auto) 87.0 H, Lymph % (Auto) 7.3 L, Borden % (Auto) 4.7, Eos % (Auto) 0.0, Baso % (Auto) 0.2, Absolute Neuts (auto) 5.3, Absolute Lymphs (auto) 0.45 L, Nucleated RBC % 0, Sodium 141, Potassium 3.2 L, Chloride 89 L, Carbon Dioxide 43.5 H, Anion Gap 9, BUN 18, Creatinine 0.59 L, Estim Creat Clear Calc 63.85, Est GFR (MDRD) Non-Af 97, BUN/Creatinine Ratio 30.6 H, Glucose 179 H, Calcium 8.6 Micro: Microbiology 01/25/25 08:31 Blood Culture (Wb) - Anticubital Right Blood Culture - Final No growth in 5 days. 01/25/25 08:31 Blood Culture (Wb) - Anticubital Left Blood Culture - Final No growth in 5 days. 01/25/25 09:15 Sputum, Induced/Lukens Gram Stain - Final 01/25/25 09:15 Sputum, Induced/Lukens Respiratory Culture - Final Pseudomonas aeruginosa 01/25/25 09:04 Urine Catheter - Catheter Legionella Antigen - Final 01/25/25 09:04 Urine Catheter - Catheter Streptococcus pneumoniae Antigen (M - Final 01/25/25 08:40 Mucosa - Nose SARS-CoV-2, Influenza & RSV (PCR) - Final Rhythm Strip Rhythm Strip: Sinus Tach Rate: 110 Ectopy: PAC(s) Physical Exam Narrative General: Alert, appears less anxious today HEENT: Atraumatic, normocephalic Eyes: Anicteric, normal conjunctiva, extraocular movements grossly intact Neck: Supple Respiratory: Respiratory effort improved, improving aeration, no overt wheezes or rhonchi my exam Cardiovascular: Regular rate GI: Soft, nontender, nondistended Extremities: Improving pitting edema in feet Musculoskeletal: Moving all extremities Neuro: No overt focal neurological deficits Skin: No rashes appreciated Psych: Cooperative and pleasant, a little bit anxious when talking about her anxiety medication Assessment & Plan Assessment/Plan (1) Acute respiratory failure: PLAN: Plan 69-year-old female with a history of severe aortic valve stenosis being worked up for TAVR in [place], COPD with chronic hypoxic respiratory failure on 3 L home O2, anxiety, GERD, restless leg syndrome, A-fib presented to [facility] ED 02/17 for worsening shortness of breath over 2 weeks. Patient required emergent intubation in the ED due to respiratory distress after she did not tolerate BiPAP. Patient diagnosed with COPD exacerbation from bilateral multifocal pneumonia with chest x-ray and CTA showing suspicion for multifocal pneumonia but no PE. Patient admitted to ICU and started on bronchodilators and Solu-Medrol. # Acute on chronic hypoxic respiratory failure secondary to COPD exacerbation from multifocal pneumonia - On 3 L at baseline O2 -Required intubation in the ED - CT on presentation no PE but suggestive of possible multifocal pneumonia and patient did become febrile -Respiratory culture growing gram-negative rods, now resulted as Pseudomonas - Continue antibiotics, Solu-Medrol, nebs - Vessel Scrapper on consult -01/28: Status post extubation, growing Pseudomonas in sputum, continue antibiotics, patient javid on nebs and steroids. Received additional IV diuresis yesterday and 1 dose today, proceeding cautiously given her severe aortic stenosis -01/29: Presently 98% on 3 L of nasal cannula, remains on nebs, antibiotics, Methylpred. Plan will be to continue Levaquin for total of 10 days, ultimate plan will be to transition patient to oral prednisone -01/30: Respiratory status significantly improved, stressed importance of incentive spirometer and flutter valve patient verbalized understanding, will stepdown to oral steroids, patient on Levaquin and nebs # Hemoptysis and anemia -Blood tinged sputum reportedly in ET tube and hemoglobin down trended to 6.7 from 8.4 on presentation -Patient transfused with a repeat hemoglobin of 8.8 that thus far has stayed stable -Eliquis on hold -01/28: Hemoglobin stable today, if no further episodes may be able to trial resuming Eliquis soon, appreciate pulm recommendations -01/29: Hemoglobin is now stable, no further episodes noted, will resume Eliquis -01/30: Tolerating Eliquis with a stable hemoglobin # A-fib with RVR - Cardiology evaluated, currently in sinus rhythm -Echo obtained and showed EF of 70% and severe aortic stenosis -Eliquis on hold -Patient continued on dronedarone, verapamil, and Coreg -01/28: Heart rate has been controlled, continue verapamil and dronedarone, decreased Coreg as she has got this inconsistently due to wide fluctuations in blood pressure, given her severe aortic stenosis will need to adjust these cautiously, holding Eliquis as above, hopeful to resume soon. Does have some low-grade tachycardia at present but is very anxious, suspect this is secondary to nebs and anxiety -01/29: Blood pressure has been more consistent and heart rate has been stable on current dose of medications -01/30: Patient being monitored on telemetry, much improved, blood pressure better as well, will increase carvedilol back to home dose of 6.25 twice daily #Hypokalemia -Replace - Repeat this afternoon -01/28: Had improved however this a.m. was 3.1, further potassium replacement ordered -01/29: Replaced with IV potassium, likely low again she got further Lasix, if Lasix would be scheduled would likely need to schedule potassium replacement -01/30: A little bit low again despite not getting Lasix, will be starting patient on low-dose of Lasix so we will schedule low-dose replacement # Severe aortic stenosis - Reportedly being worked up in [place] for TAVR - Had heart cath several weeks ago as part of her workup -Cardiology evaluated, patient trialed on IV Lasix given elevated BNP and pitting edema in the event this also is contributing to her respiratory failure -01/28: Patient received Lasix yesterday x 2 and tolerated this well, has had some fluctuations in blood pressure, another dose of Lasix given today, has got Coreg inconsistently so decreased the dose, still on verapamil and dronedarone, will need to follow-up on discharge in [place] for her TAVR evaluation -01/29: Tolerated additional Lasix yesterday, presently balance is -2800 -01/30: Appears patient was supposed to be on 20 mg of Lasix, it is on her home med list but she reported she was not taking it, patient's weight had improved and she had been net negative, gained a small amount of weight and is a little bit positive today, will resume scheduled Lasix to work on maintaining fluid balance #Depression/anxiety -01/28: Patient's home anxiety and depression medications resumed -01/29: Doing better back on home medications, Xanax as needed started by purchasing and claims supervisor over the weekend, patient reports she is getting set up with outpatient palliative care to discuss being prescribed this long-term for her anxiety -01/30: Xanax low-dose 4 times daily as needed, discussed that I would not be able to prescribe this long-term on discharge and she will need to follow-up with a provider to discuss this or alternative options, she verbalized her understanding Chronic medical problems and/or problems not being actively addressed during today's encounter: #GERD -Continue PPI # Restless leg syndrome -continue patient's home medication regimen #DVT ppx: SCDs Debby Gu MD Charges/Coding Visit Charges Inpatient E&M: 40736 Subs Hosp L2
--- NOTE | 2025-01-30 14:33 | CHAPLAIN ---
Type of Pastoral Visit ___ Initial Visit _x__ Follow-up Visit ___ On-call Visit ___ General Patient Visit ___ Spiritual Assessment ___ Family Conference ___ Bereavement ___ Rapid Response ___ Code Blue ___ Other (describe below) Pastoral Care Referral From _x__ Patient ___ Family ___ Nurse ___ Physician ___ Sleeve Sewer ___ Hat Lining Paster ___ Other (describe below) Sacrament/Intervention _x__ Active listening ___ Anointing ___ Religious ___ Bereavement ___ Communion ___ [place] exploration ___ ___ Life review _x__ Prayer ___ Reconciliation ___ Sacrament of Sick _x__ Supportive presence ___ Wedding ___ Other (describe below) Pastoral Comments patient is now out of ICU and is alert and able to talk; pt admits to being very tired and hopeful of sleep this afternoon; pt is reminded of what she has been through in ICU previously and how thoughtful to see her improvement now; pt affirms the comments and welcomes a prayer at this time
--- NOTE | 2025-01-30 15:15 | CASEMGMT ---
Social Work KHADIJAH called the boyfriend Mike. KHADIJAH spoke with Mike about how long the patient will be at [facility]. KHADIJAH informed him it will depend on the patients progress in therapy and how long the insurance company approves her to be there. ALTA Valdes
[2025-01-30] MEDS: HYDROcodone Bitartrate/Apap 5/325 Tablet PO (21:22)
--- NOTE | 2025-01-30 22:26 | PCM.HOSP.N ---
Hospitalist Note Pt asking for Imodium due to frequent loose stools. Stool studies have not been performed,these are necessary prior to prescribing loperamide. However, she may start psyllium PO now and continue twice daily to absorb water from colon.
[2025-01-31] VITALS (12 sets, daily range): BP systolic 111–137; BP diastolic 67–86; PULSE 89–103; RESP 12–20; TEMP 36.5–37; O2SAT 92–99; BMI 24.9
[2025-01-31 05:53] LABS: Hematocrit 31.4 % (37-47); Hemoglobin 9.5 g/dL (12.0-15.0); Immature Granulocytes Count 0.060 X10^3/uL (0.0-0.0); Mean Corp Hgb Conc 30.3 g/dL (32-36); Mean Corpuscular Volume 81.1 fL (81-99); Mean Platelet Vol. 11.3 fl (6.2-12.0); NRBC Flagged by Analyzer 0 % (0-5); Platelet Count 204 K/mm3 (150-450); RBC Distribution Width CV 15.1 % (11.6-14.6); RBC Distribution Width SD 44.4 fl (35.1-43.9); Red Blood Count 3.87 M/mm3 (4.2-5.4); White Blood Count 9.0 K/mm3 (4.4-11.0)
[2025-01-31 06:27] LABS: Anion Gap 6 (5-15); BUN 14 mg/dL (4-19); BUN/Creat Ratio 29.6 RATIO (10-20); Calcium,Total 8.8 mg/dL (7.6-11.0); Carbon Dioxide 44.1 mmol/L (21.0-32.0); Chloride 92 mmol/L (98-108); Estimated Creatinine Clearance 62.17 ml/min (50-250); Glucose 98 mg/dL (70-99); Potassium 3.3 mmol/L (3.3-5.1)
[2025-01-31] MEDS: Potassium Chloride Oral Tablet 10 MEQ PO (08:53)
[2025-01-31] MEDS: 0.9% Saline Lock 10 ML Syringe IV (08:56)
[2025-01-31] MEDS: 0.9% Normal Saline (250mL Bag) 250 ML 15 ML IV (09:02)
[2025-01-31] MEDS: Psyllium 1 PACKET PO (09:03)
[2025-01-31] MEDS: Verapamil SR 180 MG CAPSULE PO (09:03)
[2025-01-31] MEDS: APIXABAN 5 MG TABLET PO (09:03)
[2025-01-31] MEDS: levoFLOXacin IV 750 MG/150 ML BAG 100 MG IV (09:04)
[2025-01-31] MEDS: CHLORHEXIDINE GLUC 2% CLOTH 1 EACH TOWELETTE TOPICAL (09:22)
--- NOTE | 2025-01-31 13:49 | CASEMGMT ---
Social Work SW called [facility] and left her message stating the discharge plan is for the patient to DC to [facility] once insurance approves. ALTA Valdes
--- NOTE | 2025-01-31 14:02 | CASEMGMT ---
[facility] has obtained auth to admit. SW updated. Jocelynn Feliciano DC Planning Asst.
--- NOTE | 2025-01-31 14:18 | CASEMGMT ---
Social Work SW called [facility] and notified them that [facility]. ALTA Valdes
--- NOTE | 2025-01-31 14:18 | CASEMGMT ---
KAREN VARGAS NOTE: [facility] notified pt discharging from [facility] today and going to [facility]. Satya ZEPEDA RN CM
--- NOTE | 2025-01-31 14:20 | CASEMGMT ---
Social Work SW called [facility] and left a message notifying her that the patient is DC to [facility]. ALTA Valdes
--- NOTE | 2025-01-31 15:00 | PCM.TXEXTCAR ---
Diet Diet Order/Speech Therapy: INPATIENT Hospital Diet / Speech Therapy Order(s) 01/29/25 14:08 Diet: Regular - General Food consistency:: Easy to Chew Liquid Consistency:: [place]/Mildly Thick Speech Therapy Comments: Direct sup for foods, alt bites/sips, meds whole in Routine Orders/Code Status Suppository Type: Dulcolax 10mg Suppository Frequency: Daily PRN Routine Lab Work: BMP (1-2 days to assess potassium and kidney function) Code Status: Full Code DC O2, CPAP, BIPAP needs Home O2 Discharge instructions: Yes Type of respiratory needs?: Oxygen Oxygen frequency: Continuous Continuous oxygen liters per minute: 3 and BiPAP BiPAP instructions: AVAPS 14/6, Rate 12 and FiO2 35 Therapies Physical Therapy: Eval and Treat Occupational Therapy: Eval and Treat Problem/Diagnosis (1) Acute respiratory failure: Status: Acute Code(s): J96.00 - Acute respiratory failure, unspecified whether with hypoxia or hypercapnia (2) Multifocal pneumonia: Status: Acute Code(s): J18.8 - Other pneumonia, unspecified organism (3) Acute exacerbation of chronic obstructive pulmonary disease: Status: Acute Code(s): J44.1 - Chronic obstructive pulmonary disease with (acute) exacerbation (4) Afib: Status: Chronic Code(s): I48.91 - Unspecified atrial fibrillation (5) Aortic valve stenosis: Status: Acute Code(s): I35.0 - Nonrheumatic aortic (valve) stenosis Plan # Acute on chronic hypoxic respiratory failure secondary to COPD exacerbation from multifocal pneumonia # Hemoptysis and anemia # A-fib with RVR #Hypokalemia- resolved # Severe aortic stenosis #Depression/anxiety #GERD # Restless leg syndrome 69-year-old female with a history of severe aortic valve stenosis being worked up for TAVR in [place], COPD with chronic hypoxic respiratory failure on 3 L home O2, anxiety, GERD, restless leg syndrome, A-fib presented to [facility] ED 01/25/25 for worsening shortness of breath over 2 weeks. Patient required emergent intubation in the ED due to respiratory distress after she did not tolerate BiPAP. Patient diagnosed with COPD exacerbation from bilateral multifocal pneumonia with chest x-ray and CTA showing suspicion for multifocal pneumonia but no PE. Patient admitted to ICU and started on bronchodilators and Solu-Medrol as well as IV antibiotics, sputum culture grew Pseudomonas. Patient stabilized and was able to be extubated 01/27. She was maintained on Levaquin, inhalers were continued and she tolerated switch from IV Solu-Medrol to p.o. prednisone. There was a brief time when she was intubated there was concern of possible blood in the ET tube/pink frothy sputum and Eliquis was held however this resolved and when Eliquis was reinitiated this did not recur. She also had significant anxiety, home meds were restarted and she did have a small dose of Xanax started as needed which seem to help significantly. On day of discharge patient seems to be back to baseline, has chronic shortness of breath but significantly improved from presentation, improved swelling in lower extremities. Aside from her anxiety no new or acute complaints. Discharge instructions as follows: DISCHARGE INSTRUCTIONS PLEASE READ *Please take this with you to your next doctors appointment* - You will need to continue outpatient evaluation for your aortic valve possibly needing replaced - You wear receiving low doses of Xanax as needed for your panic attacks related to your breathing, a prescription will be sent for several days however using this and continuation at the discretion of physician assuming care - You have been restarted on a low-dose of Lasix as it appears were supposed to be taking this at home and did require Lasix several times during her admission - Due to the Lasix and several low potassium you have been started on a low-dose of potassium supplementation -You will be discharged on a prednisone taper: -60 mg daily x3 days -50mg daily x3 days -40mg daily x3 days -30mg daily x3 days -20mg daily x3 days -10mg daily x3 days - You will also be discharged on an additional 4 days of Levaquin with next dose 02/01 -Please call your primary care provider's office upon discharge to schedule a hospital follow up within 1 week. -For any concerning signs or symptoms please call 911 or proceed to the nearest emergency department Allergies/Procedures Done in Hospital Allergies No Known Allergies Allergy (Verified 01/25/25 08:25) Procedures: 2-D Echocardiogram and Intubation Type of Care/Length of Stay Estimated LOS: Convalescent Care Less Than 30 days Type of Care Needed: Skilled Rehab Potential: Fair Prognosis: Fair Additional Orders/Day of Discharge Day of Discharge: 01/31/25 Dietary and Speech Recommendations Dietitian Recommendations/Changes: When medically able to resume po diet, rec liberal Regular BUNNY - consistency per SALES SECRETARY Will continue to follow and monitor for changes in pt nutritional status and make additional rec as indicated. Discharge Plan Admission Admit Date/Time: 01/25/25 10:04 Primary Reason for Your Visit: Increased shortness of breath Attending Provider: Debby Gu Primary Care Provider: Arnulfo Fall Consulting Providers: Alessandro Palma Instructions Patient Instructions: ED Fall Prevention Additional Instructions / Restrictions: DISCHARGE INSTRUCTIONS PLEASE READ *Please take this with you to your next doctors appointment* - You will need to continue outpatient evaluation for your aortic valve possibly needing replaced - You wear receiving low doses of Xanax as needed for your panic attacks related to your breathing, a prescription will be sent for several days however using this and continuation at the discretion of physician assuming care - You have been restarted on a low-dose of Lasix as it appears were supposed to be taking this at home and did require Lasix several times during her admission - Due to the Lasix and several low potassium you have been started on a low-dose of potassium supplementation -You will be discharged on a prednisone taper: -60 mg daily x3 days -50mg daily x3 days -40mg daily x3 days -30mg daily x3 days -20mg daily x3 days -10mg daily x3 days - You will also be discharged on an additional 4 days of Levaquin with next dose 02/01 -Please call your primary care provider's office upon discharge to schedule a hospital follow up within 1 week. -For any concerning signs or symptoms please call 911 or proceed to the nearest emergency department Discharge Orders/Prescriptions Prescriptions: New alprazolam 0.25 mg Tablet 0.25 mg PO Q6H PRN PRN (Reason: Anxiety) 3 Days Qty: 12 0RF potassium chloride 10 mEq Tablet,Er Particles/Crystals 10 meq PO DAILYCM 30 Days Qty: 0 0RF prednisone 20 mg Tablet See Taper PO BREAKFAST Qty: 32 0RF Taper: Prednisone Taper 60 mg WITH BREAKFAST for 3 Days and 0 Hour 50 mg WITH BREAKFAST for 3 Days and 0 Hour 40 mg WITH BREAKFAST for 3 Days and 0 Hour 30 mg WITH BREAKFAST for 3 Days and 0 Hour 20 mg WITH BREAKFAST for 3 Days and 0 Hour 10 mg WITH BREAKFAST for 3 Days and 0 Hour levofloxacin 750 mg tablet 750 mg PO DAILY 4 Days Qty: 4 0RF Continued carvedilol 6.25 mg tablet 6.25 mg PO BID Qty: 60 11RF Rx Instructions: must administer with a meal/food Eliquis 5 mg tablet 5 mg PO BID Qty: 60 11RF Rx Instructions: Discontinue if platelet count drops less than 50,000 or hemoglobin less than 8 g% montelukast 10 MG tablet 10 mg PO DAILY Patient Comments: ANTI-HISTAMINE albuterol sulfate [Ventolin HFA] 1 INHALER inhaler 1 - 2 puff inhalation Q4H PRN PRN (Reason: Bronchodialation) Patient Comments: COPD/SHORTNESS OF BREATH tiotropium bromide [Spiriva with HandiHaler] 1 PUFF inhaler 1 puff inhalation DAILY Patient Comments: INHALER FOR COPD sertraline 100 MG tablet 100 mg PO BID Patient Comments: mood enhancement Oxygen, Home [Home Oxygen] 2.5 lpm NASAL PRN PRN (Reason: Dyspnea) Patient Comments: oxygen fluticasone propion-salmeterol [Advair Diskus] 1 PUFF inhaler 1 puff inhalation BID Qty: 1 0RF Patient Comments: nasal congestion Ropinirole Hcl 0.25 MG tablet 0.25 mg PO QHS Patient Comments: restless legs ipratropium-albuterol 3 ML solution for nebulization 3 ml inhalation Q4HWA.RT Qty: 30 0RF cholecalciferol (vitamin D3) [Vitamin D3] 50 mcg (2,000 unit) capsule 50 mcg PO DAILY ipratropium-albuterol 0.5 mg-3 mg(2.5 mg base)/3 mL solution for nebulization 3 ml inhalation Q6H PRN (Reason: shortness of breath or wheezing) Qty: 180 0RF buspirone 10 mg tablet 10 mg PO BID hydrocodone-acetaminophen 5-325 mg tablet 1 tab PO BID PRN PRN (Reason: pain) nicotine 14 mg/24 hr Patch 24 Hour 14 mg transdermal DAILY Qty: 28 0RF furosemide 20 mg tablet 20 mg PO DAILY pantoprazole 40 mg tablet,delayed release (DR/EC) 40 mg PO BID Qty: 60 2RF verapamil 180 mg Capsule,Ext Rel. Pellets 24 Hr 180 mg PO BID Qty: 60 2RF Multaq 400 mg tablet 400 mg PO BID Rx Instructions: must administer with a meal/food OXYGEN - Supplemental ([facility] INFORMATIONAL USE ONLY) Patient Comments: patient states she wears 3L at home and the [employer] supplies the oxygen Discontinued cyclobenzaprine 10 MG tablet 10 mg PO Q12H 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 prednisone 10 MG tablet 15 mg PO QODAY PRN (Reason: FLARE UPS) Patient Comments: steroid for inflammation Referrals / Follow Up: Arnulfo Fall MD [Primary Care Provider, Family Practice] - Within 1 Week Disposition Disposition (needs filled in before D/C Order can be placed): Group Home Facility (4) Afib Qualifiers: Atrial fibrillation type: paroxysmal Qualified Code(s): I48.0 - Paroxysmal atrial fibrillation (5) Aortic valve stenosis Qualifiers: Cardiac valve disease etiology: nonrheumatic Qualified Code(s): I35.0 - Nonrheumatic aortic (valve) stenosis
--- NOTE | 2025-01-31 15:08 | DS.PCM_ITS ---
Providers Date of Admission: 01/25/25 Date of Discharge: 01/31/25 Primary Care Physician: Dr. Arnulfo Fall MD Consultations 01/25/25 12:26 Consult: Forest Fire Specialist Supervisor / Pulmonary Medicine Routine Consulting Provider: Pulmonary Medicine howard Clare Reason for Consult: intubation, on vent EMERGENT Consult: No MD Notified: Yes Date Notified: 01/25/25 Time Notified: 10:14 Method of Notification: Text 01/26/25 08:59 Consult: Cardiology Routine Consulting Provider: Amy Keenan Reason for Consult: AfiB RVR, resp failure, severe EMERGENT Consult: No MD Notified: Yes Date Notified: 01/26/25 Time Notified: 08:59 Method of Notification: Text Reason For Visit: ACUTE ON CHR RESP FAILURE Diagnosis Discharge Diagnosis (1) Acute respiratory failure: Status: Acute Code(s): J96.00 - Acute respiratory failure, unspecified whether with hypoxia or hypercapnia (2) Multifocal pneumonia: Status: Acute Code(s): J18.8 - Other pneumonia, unspecified organism (3) Acute exacerbation of chronic obstructive pulmonary disease: Status: Acute Code(s): J44.1 - Chronic obstructive pulmonary disease with (acute) exacerbation (4) Afib: Status: Chronic Code(s): I48.91 - Unspecified atrial fibrillation Qualifiers: Atrial fibrillation type: paroxysmal Qualified Code(s): I48.0 - Paroxysmal atrial fibrillation (5) Aortic valve stenosis: Status: Acute Code(s): I35.0 - Nonrheumatic aortic (valve) stenosis Qualifiers: Cardiac valve disease etiology: nonrheumatic Qualified Code(s): I35.0 - Nonrheumatic aortic (valve) stenosis Plan # Acute on chronic hypoxic respiratory failure secondary to COPD exacerbation from multifocal pseudomonas pneumonia # Hemoptysis and anemia # A-fib with RVR #Hypokalemia- resolved # Severe aortic stenosis #Depression/anxiety #GERD # Restless leg syndrome Medications at Discharge Home Medications albuterol sulfate 90 mcg/actuation aerosol inhaler (Ventolin HFA) 1 - 2 puff inhalation Q4H PRN PRN Bronchodialation 04/18/13 montelukast 10 mg tablet 10 mg PO DAILY allergies 04/18/13 tiotropium bromide 18 mcg capsule with inhalation device (Spiriva with HandiHaler) 1 puff inhalation DAILY wheezing 04/18/13 Oxygen, Home [Home Oxygen] 2.5 lpm PRN PRN Dyspnea 10/22/13 sertraline 100 mg tablet 100 mg PO BID mood 10/22/13 fluticasone 500 mcg-salmeterol 50 mcg/dose blistr powdr for inhalation (Advair Diskus) 1 puff inhalation BID shortness of breath ##1 10/26/13 Ropinirole Hcl 0.25 mg PO QHS restless legs 09/23/14 ipratropium 0.5 mg-albuterol 3 mg (2.5 mg base)/3 mL nebulization soln 3 ml inhalation Q4HWA.RT wheezing ##30 05/13/16 cholecalciferol (vitamin D3) 50 mcg (2,000 unit) capsule (Vitamin D3) 50 mcg PO DAILY vitamin 10/18/23 ipratropium 0.5 mg-albuterol 3 mg (2.5 mg base)/3 mL nebulization soln 3 ml inhalation Q6H PRN shortness of breath or wheezing #180 mL 10/18/23 buspirone 10 mg tablet 10 mg PO BID anxiety 10/02/24 hydrocodone-acetaminophen 5-325mg 5mg-325mg 1 tab PO BID PRN PRN pain 10/03/24 nicotine 14 mg/24 hr daily transdermal patch 14 mg transdermal DAILY prn #28 ea 10/09/24 apixaban 5 mg tablet (Eliquis) 5 mg PO BID blood thinne #60 tabs 11/03/24 carvedilol 6.25 mg tablet 6.25 mg PO BID bp #60 tabs 11/03/24 furosemide 20 mg tablet 20 mg PO DAILY fluid overload 12/27/24 pantoprazole 40 mg tablet,delayed release 40 mg PO BID GERD #60 tabs 12/30/24 verapamil 180 mg 24 hr capsule,extended release 180 mg PO BID #60 caps 12/30/24 dronedarone 400 mg tablet (Multaq) 400 mg PO BID 01/25/25 OXYGEN - Supplemental ([facility] INFORMATIONAL USE ONLY) hypoxia 01/27/25 alprazolam 0.25 mg tablet 0.25 mg PO Q6H PRN PRN Anxiety 3 days #12 tabs 01/31/25 levofloxacin 750 mg tablet 750 mg PO DAILY 4 days #4 tabs 01/31/25 potassium chloride 10 mEq tablet,extended release(part/cryst) 10 meq PO DAILYCM 30 days #0 tabs 01/31/25 prednisone 20 mg tablet See Taper PO BREAKFAST #32 tabs 01/31/25 Hospital Course Procedures Intubation and Transthoracic echo Summary of Care Provided Minutes Spent on Discharge: 32 Hospital Course: 69-year-old female with a history of severe aortic valve stenosis being worked up for TAVR in [place], COPD with chronic hypoxic respiratory failure on 3 L home O2, anxiety, GERD, restless leg syndrome, A-fib presented to [facility] ED 01/25/25 for worsening shortness of breath over 2 weeks. Patient required emergent intubation in the ED due to respiratory distress after she did not tolerate BiPAP. Patient diagnosed with COPD exacerbation from bilateral multifocal pneumonia with chest x-ray and CTA showing suspicion for multifocal pneumonia but no PE. Patient admitted to ICU and started on bronchodilators and Solu-Medrol as well as IV antibiotics, sputum culture grew Pseudomonas. Patient stabilized and was able to be extubated 01/27. She was maintained on Levaquin, inhalers were continued and she tolerated switch from IV Solu-Medrol to p.o. prednisone. There was a brief time when she was intubated there was concern of possible blood in the ET tube/pink frothy sputum and Eliquis was held however this resolved and when Eliquis was reinitiated this did not recur. She also had significant anxiety, home meds were restarted and she did have a small dose of Xanax started as needed which seem to help significantly. On day of discharge patient seems to be back to baseline, has chronic shortness of breath but significantly improved from presentation, improved swelling in lower extremities. Aside from her anxiety no new or acute complaints. Discharge instructions as follows: DISCHARGE INSTRUCTIONS PLEASE READ *Please take this with you to your next doctors appointment* - You will need to continue outpatient evaluation for your aortic valve possibly needing replaced - You wear receiving low doses of Xanax as needed for your panic attacks related to your breathing, a prescription will be sent for several days however using this and continuation at the discretion of physician assuming care - You have been restarted on a low-dose of Lasix as it appears were supposed to be taking this at home and did require Lasix several times during her admission - Due to the Lasix and several low potassium you have been started on a low-dose of potassium supplementation -You will be discharged on a prednisone taper: -60 mg daily x3 days -50mg daily x3 days -40mg daily x3 days -30mg daily x3 days -20mg daily x3 days -10mg daily x3 days - You will also be discharged on an additional 4 days of Levaquin with next dose 02/01 -Please call your primary care provider's office upon discharge to schedule a hospital follow up within 1 week. -For any concerning signs or symptoms please call 911 or proceed to the nearest emergency department Physical Exam Narrative General: Resting comfortably, wakes up and answers questions appropriately HEENT: Atraumatic, normocephalic, poor dentition Eyes: Anicteric, normal conjunctiva, extraocular movements grossly intact Neck: Supple Respiratory: Unchanged from the day prior, no overt wheezes or rhonchi, respiratory status seems to be at baseline, no labored breathing Cardiovascular: Regular rate GI: Soft, nontender, nondistended Extremities: Trace edema in feet Musculoskeletal: Moving all extremities Neuro: No overt focal neurological deficits Skin: No rashes appreciated Psych: Cooperative and pleasant Weight / BMI Weight Weight: 66.3 kg Body Mass Index (BMI) 24.9 ABG / Lab / Microbiology Data 01/31/25 05:07 01/31/25 05:07 Laboratory: Laboratory Results - last 24 hr 01/31/25 05:07: WBC 9.0, RBC 3.87 L, Hgb 9.5 L, Hct 31.4 L, MCV 81.1, MCH 24.5 L , MCHC 30.3 L, RDW Std Deviation 44.4 H, RDW Coeff of Augustin 15.1 H, Plt Count 204, MPV 11.3, Immature Gran % (Auto) 0.700, Neut % (Auto) 71.2 H, Lymph % (Auto) 16.1 L, Maverick % (Auto) 11.7 H, Eos % (Auto) 0.2, Baso % (Auto) 0.1, Absolute Neuts (auto) 6.4, Absolute Lymphs (auto) 1.44, Nucleated RBC % 0, Sodium 141, Potassium 3.3, Chloride 92 L, Carbon Dioxide 44.1 H, Anion Gap 6, BUN 14, C reatinine 0.48 L, Estim Creat Clear Calc 62.17, Est GFR (MDRD) Non-Af 103, B UN/Creatinine Ratio 29.6 H, Glucose 98, Calcium 8.8 Microbiology: Microbiology 01/25/25 08:31 Blood Culture (Wb) - Anticubital Right Blood Culture - Final No growth in 5 days. 01/25/25 08:31 Blood Culture (Wb) - Anticubital Left Blood Culture - Final No growth in 5 days. 01/25/25 09:15 Sputum, Induced/Lukens Gram Stain - Final 01/25/25 09:15 Sputum, Induced/Lukens Respiratory Culture - Final Pseudomonas aeruginosa 01/25/25 09:04 Urine Catheter - Catheter Legionella Antigen - Final 01/25/25 09:04 Urine Catheter - Catheter Streptococcus pneumoniae Antigen (M - Final 01/25/25 08:40 Mucosa - Nose SARS-CoV-2, Influenza & RSV (PCR) - Final D/C Instructions DC O2, CPAP, BIPAP Needs Home O2 Discharge instructions: Yes Type of respiratory needs?: Oxygen Oxygen frequency: Continuous Continuous oxygen liters per minute: 3 and BiPAP BiPAP instructions: AVAPS 14/6, Rate 12 and FiO2 35 DC home with Oxygen: Yes Home O2 MD Review: I have reviewed the oxygen testing, and the patient qualifies for home oxygen equipment and portability. The patient is mobile in the home and the community. Meaningful Use Info Meaningful Use Meaningful Use Diagnoses (Choose all that apply): None applicable Discharge Plan Admission Admit Date/Time: 01/25/25 10:04 Primary Reason for Your Visit: Increased shortness of breath Attending Provider: Debby Gu Primary Care Provider: Arnulfo Fall Consulting Providers: Alessandro Palma Instructions Patient Instructions: ED Fall Prevention Additional Instructions / Restrictions: DISCHARGE INSTRUCTIONS PLEASE READ *Please take this with you to your next doctors appointment* - You will need to continue outpatient evaluation for your aortic valve possibly needing replaced - You wear receiving low doses of Xanax as needed for your panic attacks related to your breathing, a prescription will be sent for several days however using this and continuation at the discretion of physician assuming care - You have been restarted on a low-dose of Lasix as it appears were supposed to be taking this at home and did require Lasix several times during her admission - Due to the Lasix and several low potassium you have been started on a low-dose of potassium supplementation -You will be discharged on a prednisone taper: -60 mg daily x3 days -50mg daily x3 days -40mg daily x3 days -30mg daily x3 days -20mg daily x3 days -10mg daily x3 days - You will also be discharged on an additional 4 days of Levaquin with next dose 02/01 -Please call your primary care provider's office upon discharge to schedule a hospital follow up within 1 week. -For any concerning signs or symptoms please call 911 or proceed to the nearest emergency department Discharge Orders/Prescriptions Prescriptions: New alprazolam 0.25 mg Tablet 0.25 mg PO Q6H PRN PRN (Reason: Anxiety) 3 Days Qty: 12 0RF potassium chloride 10 mEq Tablet,Er Particles/Crystals 10 meq PO DAILYCM 30 Days Qty: 0 0RF prednisone 20 mg Tablet See Taper PO BREAKFAST Qty: 32 0RF Taper: Prednisone Taper 60 mg WITH BREAKFAST for 3 Days and 0 Hour 50 mg WITH BREAKFAST for 3 Days and 0 Hour 40 mg WITH BREAKFAST for 3 Days and 0 Hour 30 mg WITH BREAKFAST for 3 Days and 0 Hour 20 mg WITH BREAKFAST for 3 Days and 0 Hour 10 mg WITH BREAKFAST for 3 Days and 0 Hour levofloxacin 750 mg tablet 750 mg PO DAILY 4 Days Qty: 4 0RF Continued carvedilol 6.25 mg tablet 6.25 mg PO BID Qty: 60 11RF Rx Instructions: must administer with a meal/food Eliquis 5 mg tablet 5 mg PO BID Qty: 60 11RF Rx Instructions: Discontinue if platelet count drops less than 50,000 or hemoglobin less than 8 g% montelukast 10 MG tablet 10 mg PO DAILY Patient Comments: ANTI-HISTAMINE albuterol sulfate [Ventolin HFA] 1 INHALER inhaler 1 - 2 puff inhalation Q4H PRN PRN (Reason: Bronchodialation) Patient Comments: COPD/SHORTNESS OF BREATH tiotropium bromide [Spiriva with HandiHaler] 1 PUFF inhaler 1 puff inhalation DAILY Patient Comments: INHALER FOR COPD sertraline 100 MG tablet 100 mg PO BID Patient Comments: mood enhancement Oxygen, Home [Home Oxygen] 2.5 lpm NASAL PRN PRN (Reason: Dyspnea) Patient Comments: oxygen fluticasone propion-salmeterol [Advair Diskus] 1 PUFF inhaler 1 puff inhalation BID Qty: 1 0RF Patient Comments: nasal congestion Ropinirole Hcl 0.25 MG tablet 0.25 mg PO QHS Patient Comments: restless legs ipratropium-albuterol 3 ML solution for nebulization 3 ml inhalation Q4HWA.RT Qty: 30 0RF cholecalciferol (vitamin D3) [Vitamin D3] 50 mcg (2,000 unit) capsule 50 mcg PO DAILY ipratropium-albuterol 0.5 mg-3 mg(2.5 mg base)/3 mL solution for nebulization 3 ml inhalation Q6H PRN (Reason: shortness of breath or wheezing) Qty: 180 0RF buspirone 10 mg tablet 10 mg PO BID hydrocodone-acetaminophen 5-325 mg tablet 1 tab PO BID PRN PRN (Reason: pain) nicotine 14 mg/24 hr Patch 24 Hour 14 mg transdermal DAILY Qty: 28 0RF furosemide 20 mg tablet 20 mg PO DAILY pantoprazole 40 mg tablet,delayed release (DR/EC) 40 mg PO BID Qty: 60 2RF verapamil 180 mg Capsule,Ext Rel. Pellets 24 Hr 180 mg PO BID Qty: 60 2RF Multaq 400 mg tablet 400 mg PO BID Rx Instructions: must administer with a meal/food OXYGEN - Supplemental ([facility] INFORMATIONAL USE ONLY) Patient Comments: patient states she wears 3L at home and the [employer] supplies the oxygen Discontinued cyclobenzaprine 10 MG tablet 10 mg PO Q12H 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 prednisone 10 MG tablet 15 mg PO QODAY PRN (Reason: FLARE UPS) Patient Comments: steroid for inflammation Referrals / Follow Up: Arnulfo Fall MD [Primary Care Provider, Family Practice] - Within 1 Week Disposition Disposition (needs filled in before D/C Order can be placed): Nursing Home Facility Charges/Coding Visit Charges Inpatient E&M: 80819 Disch Hosp >30min
--- NOTE | 2025-01-31 15:19 | CASEMGMT ---
Social Work SW completed the [id number] and fax the DC orders to [facility]. ALTA Valdes
--- NOTE | 2025-01-31 15:39 | PHA.DC.MR.R ---
Pharmacy [place] Med Reconciliation Pharmacy Service has performed discharge medication reconciliation for this patient. The patient's discharge medication list was reviewed for discrepancies and discrepancies were resolved. Medications at Discharge Home Medications albuterol sulfate 90 mcg/actuation aerosol inhaler (Ventolin HFA) 1 - 2 puff inhalation Q4H PRN PRN Bronchodialation 04/18/13 montelukast 10 mg tablet 10 mg PO DAILY allergies 04/18/13 tiotropium bromide 18 mcg capsule with inhalation device (Spiriva with HandiHaler) 1 puff inhalation DAILY wheezing 04/18/13 Oxygen, Home [Home Oxygen] 2.5 lpm PRN PRN Dyspnea 10/22/13 sertraline 100 mg tablet 100 mg PO BID mood 10/22/13 fluticasone 500 mcg-salmeterol 50 mcg/dose blistr powdr for inhalation (Advair Diskus) 1 puff inhalation BID shortness of breath ##1 10/26/13 Ropinirole Hcl 0.25 mg PO QHS restless legs 09/23/14 ipratropium 0.5 mg-albuterol 3 mg (2.5 mg base)/3 mL nebulization soln 3 ml inhalation Q4HWA.RT wheezing ##30 05/13/16 cholecalciferol (vitamin D3) 50 mcg (2,000 unit) capsule (Vitamin D3) 50 mcg PO DAILY vitamin 10/18/23 ipratropium 0.5 mg-albuterol 3 mg (2.5 mg base)/3 mL nebulization soln 3 ml inhalation Q6H PRN shortness of breath or wheezing #180 mL 10/18/23 buspirone 10 mg tablet 10 mg PO BID anxiety 10/02/24 hydrocodone-acetaminophen 5-325mg 5mg-325mg 1 tab PO BID PRN PRN pain 10/03/24 nicotine 14 mg/24 hr daily transdermal patch 14 mg transdermal DAILY prn #28 ea 10/09/24 apixaban 5 mg tablet (Eliquis) 5 mg PO BID blood thinne #60 tabs 11/03/24 carvedilol 6.25 mg tablet 6.25 mg PO BID bp #60 tabs 11/03/24 furosemide 20 mg tablet 20 mg PO DAILY fluid overload 12/27/24 pantoprazole 40 mg tablet,delayed release 40 mg PO BID GERD #60 tabs 12/30/24 verapamil 180 mg 24 hr capsule,extended release 180 mg PO BID #60 caps 12/30/24 dronedarone 400 mg tablet (Multaq) 400 mg PO BID 01/25/25 OXYGEN - Supplemental ([facility] INFORMATIONAL USE ONLY) hypoxia 01/27/25 alprazolam 0.25 mg tablet 0.25 mg PO Q6H PRN PRN Anxiety 3 days #12 tabs 01/31/25 levofloxacin 750 mg tablet 750 mg PO DAILY 4 days #4 tabs 01/31/25 potassium chloride 10 mEq tablet,extended release(part/cryst) 10 meq PO DAILYCM 30 days #0 tabs 01/31/25 prednisone 20 mg tablet See Taper PO BREAKFAST #32 tabs 01/31/25
--- NOTE | 2025-01-31 15:45 | CASEMGMT ---
Discharge Planning Discharge orders, signed med list, and transport time sent to [facility]. Physicians will transport pt by wheelchair at 745p. Nursing, SW, pt, and her sig other (Mike) updated. Jocelynn Feliciano DC Planning Asst.
[2025-01-31] MEDS: HYDROcodone Bitartrate/Apap 5/325 Tablet PO (19:19)
--- NOTE | 2025-02-23 15:57 | CASEMGMT ---
KAREN VARGAS NOTE: Referral was sent to [facility] in December. KAREN VARGAS placed call to follow-up re: referral. No answer and unable to leave as is full. Satya OROURKEN KAREN VARGAS
== END 2025-01-31 20:15 | disposition skilled nursing facility (03) | DRG 208 ==
LOC: ED 10:11 → ICU 11:45 → PCU 01-29 17:20
PROVIDERS: Family Medicine; Internal Medicine Critical Care Medicine; Admitting Provider Internal Medicine; Emergency Provider Emergency Medicine; PCP Family Medicine; Visit Provider Internal Medicine
DX: J15.1 Pneumonia due to Pseudomonas (principal); J96.21 Acute and chronic respiratory failure with hypoxia; D68.32 Hemorrhagic disorder due to extrinsic circulating anticoagulants; R04.2 Hemoptysis; J44.0 Chronic obstructive pulmonary disease with (acute) lower respiratory infection; J44.1 Chronic obstructive pulmonary disease with (acute) exacerbation; G25.81 Restless legs syndrome; D64.9 Anemia, unspecified; I35.0 Nonrheumatic aortic (valve) stenosis; I10 Essential (primary) hypertension; F32.A Depression, unspecified; I48.0 Paroxysmal atrial fibrillation; J43.9 Emphysema, unspecified; K21.9 Gastro-esophageal reflux disease without esophagitis; E87.6 Hypokalemia; F41.9 Anxiety disorder, unspecified; Z87.891 Personal history of nicotine dependence; Z79.51 Long term (current) use of inhaled steroids; Z79.899 Other long term (current) drug therapy; Z79.01 Long term (current) use of anticoagulants
CPT/HCPCS: 31500; 31720; 36415; 36600; 51702; 70450; 71045; 71275; 74018; 74230; 80048; 80076; 81001; 82550; 82728; 82803; 83540; 83550; 83605; 83735; 83880; 84100; 84478; 84484; 85014; 85018; 85025; 85045; 85610; 85730; 86850; 86900; 86901; 87040; 87070; 87077; 87184; 87186; 87205; 87449; 87631; 92610; 92611; 93005; 93308; 94002; 94003; 94640; 94660; 94668; 94762; 97116; 97162; 97166; 97530; 97535; 97802; 99252; 99285; 99406; P9016; Q9967; A4216; G0463; J1938

== ENCOUNTER → 2025-02-06 05:00 | Outpatient (REF) | payer MEDICARE, MEDICAID, SELFPAY ==
[2025-02-06 09:25] LABS: Hematocrit 31.7 % (37-47); Hemoglobin 9.5 g/dL (12.0-15.0); Immature Granulocytes Count 0.050 X10^3/uL (0.0-0.0); Mean Corp Hgb Conc 30.0 g/dL (32-36); Mean Corpuscular Volume 81.9 fL (81-99); Mean Platelet Vol. 12.3 fl (6.2-12.0); NRBC Flagged by Analyzer 0 % (0-5); Platelet Count 176 K/mm3 (150-450); RBC Distribution Width CV 16.2 % (11.6-14.6); RBC Distribution Width SD 47.8 fl (35.1-43.9); Red Blood Count 3.87 M/mm3 (4.2-5.4); White Blood Count 7.9 K/mm3 (4.4-11.0)
[2025-02-06 09:44] LABS: Anion Gap 7 (5-15); BUN 12 mg/dL (4-19); BUN/Creat Ratio 21.7 RATIO (10-20); Calcium,Total 8.5 mg/dL (7.6-11.0); Carbon Dioxide 43.4 mmol/L (21.0-32.0); Chloride 93 mmol/L (98-108); Glucose 77 mg/dL (70-99); Magnesium 2.2 mg/dL (1.5-2.2); Potassium 3.2 mmol/L (3.3-5.1)
== END ==
LOC: OLS.SW 05:00
PROVIDERS: PCP Family Medicine; Visit Provider Internal Medicine
DX: J96.21 Acute and chronic respiratory failure with hypoxia (principal); J44.1 Chronic obstructive pulmonary disease with (acute) exacerbation; I35.0 Nonrheumatic aortic (valve) stenosis; R26.81 Unsteadiness on feet; R26.89 Other abnormalities of gait and mobility; I48.91 Unspecified atrial fibrillation; E03.9 Hypothyroidism, unspecified
CPT/HCPCS: 36415; 80048; 83735; 85025

== ENCOUNTER → 2025-02-08 04:55 | Outpatient (REF) | payer MEDICARE, MEDICAID, SELFPAY ==
[2025-02-08 06:51] LABS: Anion Gap 7 (5-15); BUN 12 mg/dL (4-19); BUN/Creat Ratio 21.7 RATIO (10-20); Calcium,Total 8.6 mg/dL (7.6-11.0); Carbon Dioxide 41.8 mmol/L (21.0-32.0); Chloride 94 mmol/L (98-108); Glucose 81 mg/dL (70-99); Potassium 4.2 mmol/L (3.3-5.1)
== END ==
LOC: OLS.SW 04:55
PROVIDERS: PCP Family Medicine; Visit Provider Internal Medicine
DX: E87.6 Hypokalemia (principal)
CPT/HCPCS: 36415; 80048

== ENCOUNTER → 2025-02-13 | Outpatient (REF) | payer MEDICARE, MEDICAID, SELFPAY ==
[2025-02-13 07:46] LABS: Hematocrit 28.3 % (37-47); Hemoglobin 8.5 g/dL (12.0-15.0); Immature Granulocytes Count 0.050 X10^3/uL (0.0-0.0); Mean Corp Hgb Conc 30.0 g/dL (32-36); Mean Corpuscular Volume 81.8 fL (81-99); Mean Platelet Vol. 11.3 fl (6.2-12.0); NRBC Flagged by Analyzer 0 % (0-5); Platelet Count 197 K/mm3 (150-450); RBC Distribution Width CV 17.2 % (11.6-14.6); RBC Distribution Width SD 51.0 fl (35.1-43.9); Red Blood Count 3.46 M/mm3 (4.2-5.4); White Blood Count 7.0 K/mm3 (4.4-11.0)
[2025-02-13 08:03] LABS: Anion Gap 5 (5-15); BUN 18 mg/dL (4-19); BUN/Creat Ratio 32.2 RATIO (10-20); Calcium,Total 8.4 mg/dL (7.6-11.0); Carbon Dioxide 37.5 mmol/L (21.0-32.0); Chloride 99 mmol/L (98-108); Glucose 80 mg/dL (70-99); Magnesium 2.1 mg/dL (1.5-2.2); Potassium 4.3 mmol/L (3.3-5.1)
== END ==
LOC: OLS.SW 04:00
PROVIDERS: PCP Family Medicine; Referring Provider Internal Medicine; Visit Provider Internal Medicine
DX: I10 Essential (primary) hypertension (principal); J96.21 Acute and chronic respiratory failure with hypoxia; J44.1 Chronic obstructive pulmonary disease with (acute) exacerbation
CPT/HCPCS: 36415; 80048; 83735; 85025

== ENCOUNTER 2025-02-24 13:06 | Inpatient (IN) | payer MEDICARE, MEDICAID, SELFPAY ==
[2025-02-24] VITALS (41 sets, daily range): BP systolic 86–183; BP diastolic 61–95; PULSE 94–107; RESP 12–26; TEMP 37.6–38.7; O2SAT 82–100; BMI 24.0
--- NOTE | 2025-02-24 13:20 | EKG12_ITS ---
Test Reason : SOB Blood Pressure : */* mmHG Vent. Rate : 102 BPM Atrial Rate : 102 BPM P-R Int : 188 ms QRS Dur : 84 ms QT Int : 360 ms P-R-T Axes : 73 54 56 degrees QTcB Int : 469 ms Sinus tachycardia Right atrial enlargement Borderline ECG Confirmed by Junito Madrid ([id number]), website/blog editor MAGALIE RAMIREZ ([id number]) on 02/26/2025 1:10:49 PM Referred By: Confirmed By: Junito Madrid
--- NOTE | 2025-02-24 13:22 | ED.VIS.DYS ---
HPI History of Present Illness Chief Complaint: Shortness of Breath Narrative Narrative: Patient is a 69-year-old female presenting to the emergency department for shortness of breath. Patient is unable to provide history due to altered mental status, history obtained from EMS. Patient has a past medical history of multifocal pneumonia, COPD, chronic anemia, A-fib on Eliquis, aortic valve stenosis, tobacco use and non-small cell cancer. [facility] and was [facility] for rehab after being admitted in the hospital. Today she was short of breath on 3 L and was saturating 82%. EMS put her on a nonrebreather and she jumped up to the 94%. Patient is alert and oriented x 1, unable to provide history to me. [facility] Medical History Palliative care encounter Acute anemia Acute respiratory insufficiency Anxiety Anxiety and depression Respiratory insufficiency COPD with acute exacerbation Afib Aortic valve stenosis RLS (restless legs syndrome) History of ETOH abuse Chronic hypoxic respiratory failure, on home oxygen therapy COPD (chronic obstructive pulmonary disease) Anxiety Depression Smoker Asthma Hypertension Migraines Home Medications Medication Instructions Recorded Last Taken Type albuterol sulfate 90 mcg/actuation 1 - 2 puff inhalation Q4H PRN PRN 04/18/13 09/23/14 History aerosol inhaler (Ventolin HFA) Bronchodialation montelukast 10 mg tablet 10 mg PO DAILY allergies 04/18/13 09/23/14 History 10 MG tiotropium bromide 18 mcg capsule 1 puff inhalation DAILY wheezing 04/18/13 09/23/14 History with inhalation device (Spiriva with HandiHaler) Oxygen, Home [Home Oxygen] 2.5 lpm PRN PRN Dyspnea 10/22/13 09/23/14 History sertraline 100 mg tablet 100 mg PO BID mood 10/22/13 09/23/14 History Ropinirole Hcl 0.25 mg PO QHS restless legs 09/23/14 Unknown History ipratropium 0.5 mg-albuterol 3 mg 3 ml inhalation Q4HWA.RT wheezing 05/13/16 Unknown Rx (2.5 mg base)/3 mL nebulization ##30 soln cholecalciferol (vitamin D3) 50 50 mcg PO DAILY vitamin 10/18/23 Unknown History mcg (2,000 unit) capsule (Vitamin D3) ipratropium 0.5 mg-albuterol 3 mg 3 ml inhalation Q6H PRN shortness 10/18/23 Unknown Rx (2.5 mg base)/3 mL nebulization of breath or wheezing #180 mL soln buspirone 10 mg tablet 10 mg PO BID anxiety 10/02/24 Unknown History hydrocodone-acetaminophen 5-325mg 1 tab PO BID PRN PRN pain 10/03/24 Unknown History 5mg-325mg nicotine 14 mg/24 hr daily 14 mg transdermal DAILY prn #28 ea 10/09/24 Unknown Rx transdermal patch apixaban 5 mg tablet (Eliquis) 5 mg PO BID blood thinne #60 tabs 11/03/24 Unknown Rx carvedilol 6.25 mg tablet 6.25 mg PO BID bp #60 tabs 11/03/24 Unknown Rx furosemide 20 mg tablet 20 mg PO DAILY fluid overload 12/27/24 Unknown History pantoprazole 40 mg tablet,delayed 40 mg PO BID GERD #60 tabs 12/30/24 Unknown Rx release verapamil 180 mg 24 hr 180 mg PO BID #60 caps 12/30/24 Unknown Rx capsule,extended release OXYGEN - Supplemental ([facility] hypoxia 01/27/25 Unknown History INFORMATIONAL USE ONLY) alprazolam 0.25 mg tablet 0.25 mg PO Q6H PRN PRN Anxiety 3 01/31/25 Unknown Rx days #12 tabs potassium chloride 10 mEq 10 meq PO DAILYCM 30 days #0 tabs 01/31/25 Unknown Rx tablet,extended release(part/cryst) prednisone 20 mg tablet See Taper PO BREAKFAST #32 tabs 01/31/25 Unknown Rx bisacodyl 10 mg rectal suppository 10 mg KS ONCE 02/08/25 Unknown History cyanocobalamin (vitamin B-12) 500 500 mcg PO QDAY 02/08/25 Unknown History mcg tablet Allergy/AdvReac Type Severity Reaction Status Date / Time No Known Allergies Allergy Verified 02/12/25 08:52 Family History Mother Hypertension Throat cancer Father Hypertension Stomach cancer Surgical History H/O exploratory laparotomy History of lung surgery History of cholecystectomy Social History household members: significant other and none housing: apartment Smoking Status: Former smoker alcohol intake: former substance use type: does not use ROS ROS ED Review of Systems ROS Unobtainable: due to mental status EXAM Physical Exam Narrative Exam Narrative: Vital signs: Reviewed General: Alert and oriented x 1. No acute distress. Chronically ill-appearing. HEENT: Head is normocephalic and atraumatic, sinuses nontender, pupils equal round and reactive. Nares are patent. Oropharynx and throat exams normal. Very dry mucous membranes. There is dried black emesis around the mouth. Neck: Supple without lymphadenopathy nontender Cardiovascular: Tachycardic rate and rhythm, no murmurs. No rubs or gallops. Normal S1 and S2 Respiratory: Clear to auscultation bilaterally. No wheezes, rales, rhonchi. On 3 L nasal cannula. Abdominal: Soft and nontender. Normal bowel sounds. No guarding or rebound. Nonsurgical abdomen Extremities: No asymmetric lower extremity edema noted. No tenderness. No bruising. Normal range of motion. Normal sensation. Skin: No rash or redness. Neurological: Moving all extremities, unable to participate in neurologic exam. The rest of the physical exam is unremarkable Const Vital Signs: 02/24/25 13:07 02/24/25 13:11 02/24/25 13:20 Temperature 99.6 F H 99.6 F H Temperature Source Oral Oral Pulse Rate 104 H 104 H Respiratory Rate 24 H 24 H Respiratory Effort Respiratory Depth Respiratory Pattern Blood Pressure 148/64 H 148/64 H Blood Pressure Mean 92 92 Pulse Ox 100 100 92 Oxygen Delivery Method Non-Rebreather Nasal Cannula Nasal Cannula Oxygen Flow Rate (L/min) 10 3 3 02/24/25 13:30 02/24/25 14:11 02/24/25 15:23 Temperature 99.6 F H Temperature Source Oral Pulse Rate 99 97 Respiratory Rate 26 H 21 H Respiratory Effort Short of Breath Labored Pursed Lip Respiratory Depth Deep Respiratory Pattern Tachypnea Blood Pressure 139/68 H 121/66 H Blood Pressure Mean 91 84 Pulse Ox 98 96 Oxygen Delivery Method Nasal Cannula Bi-pap Nasal Cannula Oxygen Flow Rate (L/min) 3 3 02/24/25 15:28 Temperature Temperature Source Pulse Rate Respiratory Rate Respiratory Effort Labored Accessory Muscle Use Pursed Lip Respiratory Depth Normal Respiratory Pattern Tachypnea Blood Pressure Blood Pressure Mean Pulse Ox Oxygen Delivery Method Mechanical Ventilator Oxygen Flow Rate (L/min) MDM MDM MDM Narrative Medical decision making narrative: Patient is a 69-year-old female presenting to the emergency department for shortness of breath. Patient was seen and examined. She is mildly tachycardic at 104. She is borderline febrile at 99.6. Saturating 100% on 3 L. Differential includes but is not limited to: PE, ACS, pneumonia, COPD exacerbation, CHF, GI bleed Given recent hospitalization and borderline febrile concern for possible pneumonia, Rocephin and azithromycin were given. Blood cultures x 2 were obtained prior to starting antibiotics. Rectal Tylenol given. Solu-Medrol and DuoNeb breathing treatment was also given for possible COPD exacerbation. Fluid bolus started. Patient given Protonix given the fact that she is unable to provide history and there is evidence of blood emesis around her mouth. VBG with significant respiratory acidosis with a pH of 7.15 and pCO2 of 113. Patient placed on initially BiPAP. She had no significant wheezing on exam. CBC with mild leukocytosis of 11.3 and chronic anemia of 8.9. BMP with slight bump in BUN at 25. Lactate within normal limits. Initial troponin of 27 and BNP of 1746. Comparable to recent labs on 01/25/25. Blood gas worsening after 30 minutes on BIPAP with pH of 7.102 and pCO2 123.4. Decision was made to intubate. No family here at bedside. Code status from recent hospitalization was full code. Pre-oxygenation with bipap. Etomidate and rocuronium used. GlideScope and 7.5 ETT initially attempted with inability to pass the ETT tube through the cords. Attempt was aborted and patient oxygenated again with bag valve mask. A second attempt was done with GlideScope and 7.0 ETT with again inability to pass. Dr. Jackson attempted a third time with direct laryngoscopy with 7.0 ETT tube which passed successfully. Chest x-ray obtained afterwards shows satisfactory position of the ETT. Postintubation sedation with propofol and fentanyl. Imaging was reviewed by myself. CT brain with no evidence of intracranial hemorrhage on my review. CTA of the chest shows no evidence of a pulmonary embolism. No opacity noted. Discussed patient with Dr. Palma for admission to the ICU. Clinical impression: Acute on chronic hypercapnic respiratory failure History & Record Review Discussion w/independent historian: EMS personnel Additional record(s) reviewed:: Prior ED visit and Prior labs Lab Data Attestation: I reviewed the patient's lab results. Labs: Laboratory Results - last 24 hr 02/24/25 13:16 WBC 11.3 H RBC 3.74 L Hgb 8.9 L Hct 30.5 L MCV 81.6 MCH 23.8 L MCHC 29.2 L RDW Std Deviation 46.3 H RDW Coeff of [place]in 15.4 H Plt Count 168 MPV 10.2 Immature Gran % (Auto) 1.300 H Neut % (Auto) 83.9 H Lymph % (Auto) 9.1 L [place] % (Auto) 5.2 Eos % (Auto) 0.1 Baso % (Auto) 0.4 Absolute Neuts (auto) 9.5 H Absolute Lymphs (auto) 1.02 Nucleated RBC % 0 Sodium 137 Potassium 5.0 Chloride 92 L Carbon Dioxide 37.0 H Anion Gap 7 BUN 25 H Creatinine 0.48 L Estim Creat Clear Calc 57.31 Est GFR (MDRD) Non-Af 102 BUN/Creatinine Ratio 52.3 H Glucose 141 H Lactic Acid < 1.0 Calcium 8.8 Troponin T High Sens 27 H D NT pro BNP II 1746 H ABG Data ABG results: ABG 02/24/25 02/24/25 13:50 15:06 Specimen Type RENNY ART Sample Site Not entered L Radial pH 7.10 L* Bicarbonate Actual 38.5 H Total CO2 42 Base Excess 9 H O2 Saturation 91 L O2 % 35.0 ABG pCO2 123.4 H* ABG pO2 87 Issa Test Positive VBG pH 7.15 L* VBG pO2 52 H VBG HCO3 40 H VBG Total CO2 43 H VBG O2 Sat (Calc) 71 H VBG Base Excess 11 H POC Mix VBG pCO2 Pt Tmp 113.4 H* Respiration Rate 12 O2 Delivery Device Not entered BiPAP Vent Mode BiLevel Tidal Volume 400.0 POC PEEP 8 Crit Call To/Read Back Yes Yes Blood Gas Notified Whom robert marsh Blood Gas Notified Time 13:52:25 15:08:11 Discharge Plan Triage Chief Complaint: Shortness of Breath ED Provider: Meilza Marsh Dx/Rx/DC Orders Prescriptions: No Action carvedilol 6.25 mg tablet 6.25 mg PO BID Qty: 60 11RF Rx Instructions: must administer with a meal/food Eliquis 5 mg tablet 5 mg PO BID Qty: 60 11RF Rx Instructions: Discontinue if platelet count drops less than 50,000 or hemoglobin less than 8 g% cyanocobalamin (vitamin B-12) 500 mcg tablet 500 mcg PO QDAY bisacodyl 10 mg suppository 10 mg KS ONCE montelukast 10 MG tablet 10 mg PO DAILY Patient Comments: ANTI-HISTAMINE albuterol sulfate [Ventolin HFA] 1 INHALER inhaler 1 - 2 puff inhalation Q4H PRN PRN (Reason: Bronchodialation) Patient Comments: COPD/SHORTNESS OF BREATH tiotropium bromide [Spiriva with HandiHaler] 1 PUFF inhaler 1 puff inhalation DAILY Patient Comments: INHALER FOR COPD sertraline 100 MG tablet 100 mg PO BID Patient Comments: mood enhancement Oxygen, Home [Home Oxygen] 2.5 lpm NASAL PRN PRN (Reason: Dyspnea) Patient Comments: oxygen Ropinirole Hcl 0.25 MG tablet 0.25 mg PO QHS Patient Comments: restless legs ipratropium-albuterol 3 ML solution for nebulization 3 ml inhalation Q4HWA.RT Qty: 30 0RF cholecalciferol (vitamin D3) [Vitamin D3] 50 mcg (2,000 unit) capsule 50 mcg PO DAILY ipratropium-albuterol 0.5 mg-3 mg(2.5 mg base)/3 mL solution for nebulization 3 ml inhalation Q6H PRN (Reason: shortness of breath or wheezing) Qty: 180 0RF buspirone 10 mg tablet 10 mg PO BID hydrocodone-acetaminophen 5-325 mg tablet 1 tab PO BID PRN PRN (Reason: pain) nicotine 14 mg/24 hr Patch 24 Hour 14 mg transdermal DAILY Qty: 28 0RF furosemide 20 mg tablet 20 mg PO DAILY pantoprazole 40 mg tablet,delayed release (DR/EC) 40 mg PO BID Qty: 60 2RF verapamil 180 mg Capsule,Ext Rel. Pellets 24 Hr 180 mg PO BID Qty: 60 2RF OXYGEN - Supplemental ([facility] INFORMATIONAL USE ONLY) Patient Comments: patient states she wears 3L at home and the [employer] supplies the oxygen alprazolam 0.25 mg Tablet 0.25 mg PO Q6H PRN PRN (Reason: Anxiety) 3 Days Qty: 12 0RF potassium chloride 10 mEq Tablet,Er Particles/Crystals 10 meq PO DAILYCM 30 Days Qty: 0 0RF prednisone 20 mg Tablet See Taper PO BREAKFAST Qty: 32 0RF Taper: Prednisone Taper 60 mg WITH BREAKFAST for 3 Days and 0 Hour 50 mg WITH BREAKFAST for 3 Days and 0 Hour 40 mg WITH BREAKFAST for 3 Days and 0 Hour 30 mg WITH BREAKFAST for 3 Days and 0 Hour 20 mg WITH BREAKFAST for 3 Days and 0 Hour 10 mg WITH BREAKFAST for 3 Days and 0 Hour Primary Care Provider: Arnulfo Fall Referrals: Arnulfo Fall MD [Primary Care Provider, Family Practice] Print Language: Libyan
[2025-02-24 13:34] LABS: Hematocrit 30.5 % (37-47); Hemoglobin 8.9 g/dL (12.0-15.0); Immature Granulocytes Count 0.150 X10^3/uL (0.0-0.0); Mean Corp Hgb Conc 29.2 g/dL (32-36); Mean Corpuscular Volume 81.6 fL (81-99); Mean Platelet Vol. 10.2 fl (6.2-12.0); NRBC Flagged by Analyzer 0 % (0-5); Platelet Count 168 K/mm3 (150-450); RBC Distribution Width CV 15.4 % (11.6-14.6); RBC Distribution Width SD 46.3 fl (35.1-43.9); Red Blood Count 3.74 M/mm3 (4.2-5.4); White Blood Count 11.3 K/mm3 (4.4-11.0)
--- OUTSIDE RECORDS SUMMARY | 2025-02-24 13:34 | XMS RPT_ITS | CCD ---
Author Organization [facility] Care Team Providers Care Linotype Machinist Apprentice Name Role Phone Yoseph Fall MD Primary Care Provider Dr. Yoseph Fall Primary Care Provider Dr. Dallas Mena Emergency Provider Dr. José Cunningham Admit Provider Unavailabl e Dr. José Cunningham Other Provider Unavailabl e Dr. Jan Bolanos Attending Provider Dr. Jan Bolanos Other Provider Yoseph Fall MD Primary Care Provider Yoseph Fall MD Primary Care Provider Tannhof DESIGN ENGINEER AGRICULTURAL EQUIPMENT.TOE LINING CLOSER, Iman Unavailable Jt DESIGN ENGINEER AGRICULTURAL EQUIPMENT.TOE LINING CLOSER, Nelson Unavailable Tannhof DESIGN ENGINEER AGRICULTURAL EQUIPMENT.TOE LINING CLOSER Iman Unavailable Unavail able Tannhof DESIGN ENGINEER AGRICULTURAL EQUIPMENT.TOE LINING CLOSER, Iman Unavailable Dr. Yoseph Fall MD Primary [...] Provider Charley BABCOCK, Lindsay Soliz Attending Provider [phone] Saul JONES, Mikayla Unavailable Unavailable Rebecca DESIGN ENGINEER AGRICULTURAL EQUIPMENT.TOE LINING CLOSER, Gregor Unavailable Unavailable Primary Care Provider Unavailizzy Zarate MD, Dr. Rod Emergency Provider Yudelka SOUND EFFECTS TECHNICIAN-C, Stacy Other Provider Yudelka SOUND EFFECTS TECHNICIAN-C, Stacy Attending Provide r Dr. Kyle Mendenhall DO Other Provider Andrea SOUND EFFECTS TECHNICIAN-C, Elma Other Provider Jake SOUND EFFECTS TECHNICIAN-C, Mercedez Other Provider Jackie Urbano Other Provider Dr. Kyle Mnedenhall DO Attending Provider Eufemia OWEN, Dr. Arredondo Primary Care Physician Dr. Riley Jeff DO Emergency Department Physic fernando Charlotte OWEN, Dr. Dionne Wang Attending Physician Charlotte OWEN, Dr. Dionne Wang Admitting Physician Charlotte OWEN, Dr. Dionne Wang Nurse Practitioner Luis Miguel OWEN, Dr. Jan Harris Nurse Practitioner Julius OWEN, Dr. Wild Nurse Practitioner Louie OWEN, Dr. Francois Attending Physician Gilmar OWEN, Dr. Lynne Hooker Nurse Practitioner Luis Miguel OWEN, Dr. Jan Harris Attending Physician Julius OWEN, Dr. Wild Attending Physician Gilmar OWEN, Dr. Lynne Hooker Attending Physician John OWEN, Dr. Carranza Attending Physician Erinn OWEN, Dr. Rodriguez Attending Physician Unavail able Louie OWEN, Dr. Francois Nurse Practitioner Eufemia OWEN, Dr. Arredondo Referring Provider Lindsay Russell Attending Physician Tessa OWEN, Dr. Rod Emergency Department Phys ician Yudelka SOUND EFFECTS TECHNICIAN-C, Stacy Nurse Practitione r Za CRUM, Dr. Wright Nurse Practitioner Andrea SOUND EFFECTS TECHNICIAN-C, Elma Nurse Practitioner Jake SOUND EFFECTS TECHNICIAN-C, Mercedez Nurse Practitioner Jackie Urbano Nurse Practitioner Yudelka SOUND EFFECTS TECHNICIAN-C, Stacy Attending Physici an Gilmar OWEN, Dr. Lynne Hooker Referring Provider Dr. Kyle Mendenhall DO Attending Physician Gustavo OWEN, Dr. Angulo Attending Physician Dr. Mercy Flores DO Emergency Department Physi bartolome Dr. Mercy Flores DO Emergency Department Physi bartolome Louie OWEN, Dr. Francois Admitting Physician Melissa OWEN, Dr. Seth Nurse Practitioner [phone] Karo OWEN, Dr. Ramirez Nurse Practitioner Kamari OWEN, Dr. Meade Nurse Practitioner Ramirez CRUM, Dr. Ashraf Nurse Practitioner Yadira OWEN, Dr. José Mcdonough Nurse Practitioner Festus OWEN, Dr. Lau Nurse Practitioner Robert OWEN, Dr. Cunningham Nurse Practitioner Tim OWEN, Dr. Barkley Nurse Practitioner Israel OWEN, Dr. Alfredo Nurse Practitioner Ephraim OWEN, Dr. Evans Nurse Practitioner [phone] Marvin OWEN, Dr. Lin Nurse Practitioner [phone] Oscar OWEN, Dr. Naik Nurse Practitioner Julia OWEN, Dr. Dan Nurse Practitioner Unavail beata Araujo MD, Dr. Broderick Nurse Practitioner Jess OWEN, Dr. Sims Nurse Practitioner William OWEN, Dr. Lee Nurse Practitioner Lisa OWEN, Dr. Bess Nurse Practitioner [phone] Akilah CRUM, Dr. Clay Nurse Practitioner Jelena OWEN, Dr. Velazco Nurse Practitioner Mak OWEN, Dr. Ojeda Nurse Practitioner Reza CRUM, Dr. Castro Nurse Practitioner [phone] Dashawn OWEN, Dr. Hauser Nurse Practitioner Kathleen rebeka Pathak MD, Dr. Avila Nurse Practitioner [phone] Erendira OWEN, Dr. Ro Nurse Practitioner Charli OWEN, Dr. Rivas Nurse Practitioner Los SOUND EFFECTS TECHNICIAN-C, Susan Nurse Practitioner Soin SOUND EFFECTS TECHNICIAN-C, Haylee Soliz Nurse Practitioner Dr. Andriy Guzmán DO Attending Physician YOSEPH FALL Attending Unavailable YOSEPH FALL Primary Care Unavailable ELDERSHAY, YOSEPH Liu Attending Unavailable ELDERSHELBICK, YOSEPH Liu Primary Care Unavailable EUFEMIA, YOSEPH Liu Attending Unavailable EUFEMIA, YOSEPH Liu Primary Care Unavailable GREGOR FERNANDEZ Attending Stephanie FALL, YOSEPH Liu Referring Unavailable ELDERSHELBICK, YOSEPH Liu Primary Care Unavailable GREGOR FERNANDEZ Attending Kathleenvai hayden FALL, YOSEPH Liu Primary Care Unavailable GREGOR FERNANDEZ Attending Unavai hayden SELF Referring Unavailable EUFEMIA, YOSEPH Liu Primary Care Unavailable HAYLEE CARTER Attending Unavailable EUFEIMA, YOSEPH Liu Referring Unavailable ELDERSHAY, YOSEPH Liu Primary Care Unavailable Eufemia OWEN, Dr. Arredondo Primary Care Physician Dr. Riley Jeff DO Emergency Department Physic fernando Julius OWEN, Dr. Wild Attending Physician Gilmar OWEN, Dr. Lynne Hooker Attending Physician [phone] Charlotte OWEN, Dr. Dionne Wang Attending Physician Riccardo OWEN, Dr. Guardado Attending Physician Melissa OWEN, Dr. Seth Nurse Practitioner [phone] Karo OWEN, Dr. Ramirez Nurse Practitioner [phone] Kamari OWEN, Dr. Meade Nurse Practitioner Ramirez CRUM, Dr. Ashraf Nurse Practitioner Yadira OWEN, Dr. José Mcdonough Nurse Practitioner Festus OWEN, Dr. Lau Nurse Practitioner Robert OWEN, Dr. Cunningham Nurse Practitioner Tim OWEN, Dr. Barkley Nurse Practitioner Israel OWEN, Dr. Alfredo Nurse Practitioner Ephraim OWEN, Dr. Evans Nurse Practitioner Marvin OWEN, Dr. Lin Nurse Practitioner Oscar OWEN, Dr. Naik Nurse Practitioner Julia OWEN, Dr. Dan Nurse Practitioner Unavail beata Araujo MD, Dr. Broderick Nurse Practitioner Jess OWEN, Dr. Sims Nurse Practitioner William OWEN, Dr. Lee Nurse Practitioner Lisa OWEN, Dr. Bess Nurse Practitioner Akilah CRUM, Dr. Clay Nurse Practitioner eJlena OWEN, Dr. Velazco Nurse Practitioner Mak OWEN, Dr. Ojeda Nurse Practitioner Reza CRUM, Dr. Castro Nurse Practitioner [phone] Dashawn OWEN, Dr. Hauser Nurse Practitioner Kathleen rebeka Pathak MD, Dr. Avila Nurse Practitioner Erendira OWEN, Dr. Ro Nurse Practitioner Charli OWEN, Dr. Rivas Nurse Practitioner Los SOUND EFFECTS TECHNICIAN-C, Susan Nurse Practitioner Soni SOUND EFFECTS TECHNICIAN-C, Haylee Soliz Nurse Practitioner Shlomo OWEN, Dr. Reyes Nurse Practitioner Shlomo OWEN, Dr. Reyes Attending Physician Riccardo OWEN, Dr. Guardado Nurse Practitioner ZARIA SHEA Attending Unavailable RUBI CORBETT Attending Unavailable ZARIA SHEA Attending Unavailable ZARIA SHEA Referring Unavailable ZARIA SHEA Admitting Unavailable ZARIA SHEA Attending Unavailable Dionne Porter Consulting Unavailable Dionne Porter Admitting Unavailable Michael Plasencia Attending Unavailable Yoseph Fall Primary Care Unavailable Jan Bolanos Consulting Unavailable Junito Madrid Consulting Unavailable Lynne Schafer Consulting Unavailable Yoseph Fall Primary Care Unavailable Dionne Porter Attending Unavailable Rolo Torres Consulting Unavailable Louie, Alessandro Admitting Unavailable James Huddleston Consulting Unavailable Deshaun Benites Consulting Unavailable Andriy Guzmán Consulting Unavailable José May Consulting Unavailable Sid Mortensen Consulting Unavailable Robert, Octavio Consulting Unavailable Rubia Dumont Consulting UnavailJuni Hein Consulting Unavailable Nathan Ye Consulting Unavailable Riley Wong Consulting Unavailable Heena Moore Consulting Unavailable Sy Dumont Consulting Unavailable AraujoMeggan aguilar Consulting Unavailable Jess, Levi Consulting Unavailable IrJesus sherman Consulting Unavailable Lisa, Shahriar Consulting Unavailable Dhecarolyn, Obed Consulting Unavailable Juan A Bowles Consulting Unavailable Rusty Corado Consulting Unavailable Matthew Cobb Consulting Unavailable Panclyudmila Murtaza Consulting Unavailable Austin Pathak Consulting Unavailable Jia Krishna Consulting UnavailRob Connors Consulting Unavailable Susan Madison NP Consulting Unavailable Haylee Shafer Consulting Unavailable Louie, Alessandro Consulting Unavailable Louie Alessandro Attending Unavailable Lynne Schafer Attending Unavailable Lynne Schafer Attending Unavailable Dionne Porter Consulting Unavailable Elderbrock, Yoseph Primary Care Unavailable Dionne Porter Admitting Unavailable Stacy Jha Consulting Unaelizbaeth Palma, Alessandro Consulting Unavailable Za, Kyle Consulting Unavailable Elma Mendez Consulting Unavailable Mercedez Joseph Consulting Unavailable Jackie Henry Consulting Unavailable Amy Keenan Attending Unavailabl Drake Pachecoapradeparas Consulting Unavailabl Debby Deleon Referring Unavailable Andriy Guzmán Attending Unavailable Junito Madrid Attending Unavailable Debby Gu Attending Unavailable Debby Gu Consulting Unavailable Dionne Porter Attending Unavailable Elderbrock, Yoseph Primary Care Unavailable Jessica Meraz Attending Unavailable Elderbrock, Yoseph Primary Care Unavailable Elderbrock, Yoseph Attending Unavailable Elderbrock, Yoseph Primary Care Unavailable Jessica Meraz Attending Unavailable Jessica Meraz Referring Unavailable Elderbrock, Yoseph Primary Care Unavailable Elderbrock, Yoseph Primary Care Unavailable Gujessicaa Jessica TRAMMELL Attending Unavailable Zaria Chen Attending Unavailable Elderbrock, Yoseph Primary Care Unavailable Elderbrock, Yoseph Referring Unavailable Ingris Irwin NP Attending Unavailable Elderbrock, Yoseph Primary Care Unavailable Elderbrock, Yoseph Primary Care Unavailable Elderbrock, Yoseph Referring Unavailable Lindsay Russell Attending Unavail able Louie, Alessandro Attending Unavailable Louie, Alessandro Consulting Unavailable Koram, Lynne Nhung Attending Unavailable White, Dionne L Consulting Unavailable White, Dionne L Admitting Unavailable [facility] Primary Care Unavailable Stacy Jha Consulting Unavai lable Louie, Alessandro Consulting Unavailable Friend, Kyle Consulting Unavailable Elma Mendez Consulting Unavailable Mercedez Joseph Consulting Unavailable Jackie Henry Consulting Unavailable Koram, Lynne Nhung Consulting Unavailable Stacy Jha Attending [facility] Primary Care Unavailable White, Dionne L Consulting Unavailable White, Dionne L Admitting Unavailable WhiteDionne L Attending Unavailable Dillon Lopez Attending Unavailable [facility] Primary Care Unavailable Louie, Alessandro Referring Unavailable Koram, Lynne Nhung Referring Unavailable Friend, Kyle Attending Unavailable Jan Bolanos Attending Unavailable Jessica Meraz Attending Unavailable [facility] Primary Care Unavailable Louie, Alessandro Admitting Unavailable Louie, Alessandro Consulting Unavailable Debby Gu Attending Unavailable [facility] Primary Care Unavailable White, Dionne L Consulting Unavailable White, Dionne L Admitting Unavailable Louie, Alessandro Attending Unavailable [facility] Primary Care Unavailable Jan Bolanos Consulting Unavailable Junito Madrid Consulting Unavailable Koram, Lynne Nhung Consulting [place]available [place] , Dr. Arredondo Primary Care Physician Charlotte OWEN, Dr. Dionne Wang Admitting Physician Charlotte OWEN, Dr. Dionne Wang Nurse Practitioner Dr. Lynne Schafer MD Attending Physician Dr. Alessandro Palma MD Nurse Practitioner Gilmar OWEN, Dr. Lynne Hooker Nurse Practitioner Dr. Alessandro Palma MD Referring Provider Dr. Debby Gu MD Referring Provider Dr. Jessica Luo MD Attending Physician Unavail able Ingris Adams Attending Physician Dr. Jessica Luo MD Referring Provider Unavaila ble Medications Current Medications Medication Drug Class(es) Dates Sig (Normalized) Sig (Original) acetaminophen 325 mg / HYDROcodone bitartrate 5 mg oral tablet (20 sources) Opioid Agonist Start: 10-03-2024 Start: 06-15-2023 End: 01-18-2025 take 1 tablet [...] 0 02/19/2023 Active Start: 09-23-2014 End: 10-18-2023 Start: 09-23-2014 End: 10-18-2023 take 7.5-325 mg [...] th every six hours as needed HYDROcodone-acetaminophen (Morrow) 5-325 MG tablet Take 1 tablet by [...] Do not start before June 15, 2023. [id number] 200 actuat albuterol 0.09 mg/actuat metered dose [...] 3:37pm May 13, 2016 11:48am Start: 04-18-2013 Start: 04-18-2013 End: 05-13-2016 Start: 04-18-2013 End: 10-26-2013 take 2.5 mg [...] for shortness of breath or wheezing 180 October 18, 2023 12:00am Start: 04-13-2023 End: 08-29-2024 ipratropium-albuterol (DUONE B) 0.5 mg-3 mg(2.5 mg base)/3 mL nebu inhale 1 ampule via nebulizer every 4 hours if needed for wheezing. Use over 5 to 15 minutes 360 mL 2 08/29/2024 Active Start: 05-13-2016 Start: 05-13-2016 take 1 mL by inhalat [...] wheezing. Use over 5 to 15 minutes ALPRAZolam 0.25 mg oral tabl et (14 sources) Benzodiazepine Start: 01-31-2025 Start: 05-04-2013 End: 07-20-2023 amoxicillin 875 mg oral tablet (3 sources) Penicillin-class Antibacterial Start: 03-22-2024 End: 04-01-2024 take 1 tablet by mouth twice daily [...] Factor Xa Inhibitor Start: 10-09-2024 End: 01-05-2025 Start: 10-09-2024 End: 11-03-2024 take 1 drop(s) by mouth twice daily Apixaban (Eliquis) 5 mg tablet Active 5 mg PO TWICE A DAY 60 November 03, 2024 1:31pm blood thinne On Hold: Resume on 01/02/25. hold per GI, until 01/02/2025 Discontinue if platelet count drops less than 50,000 or hemoglobin less than 8 g% bisacodyl 10 mg rectal suppo sitory (1 source) Stimulant Laxative Start: 02-08-2025 busPIRone hydrochloride 10 m g oral tablet (20 sources) Start: 10-02-2024 Start: 04-07-2024 End: 12-19-2024 take 1 tablet by mouth twice daily busPIRone (Buspar) 10 MG tablet Take 10 mg by mouth 2 times daily. 11/06/2024 Active carvedilol 6.25 mg oral tabl et (20 sources) alpha-Adrenergic He, beta-Adrenergic He Start: 10-09-2024 End: 11-03-2024 cholecalciferol 0.05 mg oral capsule (20 sources) Vitamin D Start: 10-18-2023 Start: 12-31-2021 End: 06-22-2024 take 1 capsule [...] oral tablet (20 sources) Muscle Relaxant Start: 013 End: 025 take 1 tablet by mouth twice daily as needed for muscle spasms cyclobenzaprine (FLEXERIL) 10 mg tablet Indications: Generalized osteoarthrosis, involving multiple sites Take 1 tablet by mouth two times a day as needed for muscle spasm. 60 tablet 5 12/08/2024 Active Start: 04-18-2013 take 1 tablet by [...] M54.40 doxycycline hyclate 100 mg oral tablet (16 sources) Tetracycline-cla ss Drug Start: 11-24-2024 End: 12-04-2024 take 1 tablet by mouth twice daily doxycycline (VIBRA-TABS) 100 mg tablet Indications: Stage 3 severe COPD by GOLD classification ([facility]) Take 1 tablet by mouth two times a day for 10 days. 20 tablet 11/24/2024 12/04/2024 Active Start: 04-18-2013 End: 05-02-2013 fluticasone propionate 0.05 mg/actuat metered dose nasal spray (20 sources) Corticosteroid Start: 08-21-2024 take 2 spray(s) by mouth once daily fluticasone (Flonase) 50 MCG/ACT nasal spray use 2 sprays in each nostril daily. Rinse mouth after use 08/21/2024 Active Start: 04-18-2013 End: 01-25-2025 Start: 04-18-2013 Fluticasone Pr opionate Active 1 [...] Active Start: 12-24-2023 take 1 puff(s) by [facility] twice daily fluticasone-salmeterol (ADVAIR DISKUS) 500-50 mcg/dose [...] Discontinued Start: 05-18-2023 take 1 puff(s) by [facility] twice daily fluticasone-salmeterol (ADVAIR DISKUS) 500-50 mcg/dose dsdv Inhale 1 Puff as instructed two times a day. Rinse and gargle mouth with water after use. 3 Each 3 05/18/2023 Active Start: 03-17-2023 take 1 puff(s) by mo [facility] twice daily fluticasone-salmeterol (ADVAIR DISKUS) [...] Start: 01-15-2023 take 1 puff(s) by mo [facility] twice [...] Start: 12-31-2021 take 1 puff(s) by mo [facility] twice daily fluticasone-salmeterol (ADVAIR DISKUS) 500-50 mcg/dose dsdv Inhale 1 Puff as instructed twice daily. Rinse and gargle mouth with water after use. 3 Each 3 12/31/2021 Active Start: 04-21-2021 take 1 puff(s) by mo [facility] twice daily fluticasone-salmeterol (ADVAIR DISKUS) 500-50 mcg/dose dsdv Inhale 1 Puff as instructed twice daily. Rinse and gargle mouth with water after use. 3 Each 3 04/21/2021 Active Start: 04-21-2021 take 1 puff(s) by mo [facility] twice daily fluticasone-salmeterol (ADVAIR DISKUS) 500-50 mcg/dose dsdv Inhale 1 Puff as instructed twice daily. Rinse and gargle mouth with water after use. 3 Each 3 04/21/2021 Active Start: 10-26-2013 End: 02-08-2025 Start: 10-26-2013 Start: 10-26-2013 take 1 puff(s) by in halation twice daily Fluticasone Propion-Salmeterol (Advair Diskus) 1 PUFF inhaler Active 1 NMA INHALATION TWICE A DAY 1 October 26, 2013 3:37pm shortness of breath [...] 26, 2013 3:37pm Start: 04-18-2013 End: 10-26-2013 Start: 04-18-2013 End: 10-26-2013 take 1 puff(s) [...] oral tablet (20 sources) Loop Diuretic Start: 5 hydrOXYzine pamoate 25 mg oral capsule (8 sources) Antihistamine Start: 5 take 1 capsule by mouth every six [...] area as needed for Dry Skin. losartan potassium 50 mg oral tablet (20 sources) Angiotensin 2 Receptor He Start: 08-15-2020 take 0.5 tablet by mouth once daily losartan (COZAAR) 50 mg tablet Take 0.5 tablets by mouth once daily. 30 tablet 11 08/15/2020 Active Comment on above: Take 0.5 tablets by mouth once daily. montelukast 10 mg oral tablet (20 sources) Leukotriene Receptor Antagonist Start: 04-18-2013 End: 06-01-2024 Start: 04-18-2013 End: 05-27-2025 take 1 tablet [...] system (20 sources) Cholinergic Nicotinic Agonist Start: 10-09-2024 End: 10-31-2024 Start: 07-22-2023 End: 01-25-2025 Start: 05-24-2023 Nicotine Polac rilex 2 mg [...] een cheek and gum as needed. nystatin [id number] unt/ml oral suspension (20 sources) Polyene Antifungal [...] (or expectorate) 4 times daily until gone. Oxygen, Home (Home Oxygen) (8 sources) Start: 10-22-2013 Oxygen, Home (Home Oxygen) Active 2.5 LPM [...] pantoprazole 40 mg delayed release oral tablet (5 sources) Proton Pump Inhibitor Start: 12-30-2024 microencapsulated potassium chloride 10 meq extended release oral tablet (2 sources) Start: 01-31-2025 predniSONE 20 mg oral tablet (20 sources) Start: 01-31-2025 Start: 12-30-2024 End: 01-25-2025 Start: 10-18-2023 End: 11-03-2024 Start: 07-22-2023 End: 10-18-2023 Start: 01-23-2022 End: 06-08-2022 take 1 tablet [...] 03/14/2021 09/30/2021 Discontinued Start: 05-13-2016 End: 07-20-2023 Start: 04-03-2015 predniSONE (DE LTASONE) 10 mg tablet Indications: Stage 3 severe COPD by GOLD classification ([facility]) Take 1.5 pills every day or every other day as needed 45 tablet 5 11/13/2024 Active Start: 04-03-2015 Prednisone 10 MG tablet Active 15 mg PO EVERY OTHER DAY as needed for FLARE UPS April 03, 2015 12:14pm Start: 04-03-2015 Prednisone Act ene 15 MG PO NEEDED April 03, 2015 12:14pm Start: 09-25-2014 End: 01-31-2025 Start: 09-25-2014 End: 01-31-2025 take 1.5 tablets by mouth every other day predniSONE (DELTASONE) 10 mg tablet Indications: Stage 3 severe COPD by GOLD classification ([facility]) Take 1.5 tablets by mouth every other day. 30 tablet 5 10/12/2024 11/13/2024 Discontinued Start: 09-23-2014 End: 09-25-2014 Start: 09-23-2014 End: 09-25-2014 take 1 tablet by mouth once daily Prednisone 20 MG tablet Discontinued 20 mg PO DAILY@0800 September 23, 2014 12:00am September 25, 2014 11:14am Start: 04-18-2013 End: 05-04-2013 Start: 04-18-2013 End: 05-02-2013 take 6 tablets [...] by mouth every other day. PULSE OXIMETER CONTE (20 sources) Start: 07-17-2021 PULSE OXIMETER [facility] Indications: Chronic obstructive pulmonary disease, unspecified COPD type (HCC) , Moderate persistent asthma without complication (HCC) Use as directed to check oxygen saturation level 1 Each 07/17/2021 Active Start: 07-17-2021 PULSE OXIMETER [facility] Indications: Chronic obstructive pulmonary disease, unspecified COPD type (HCC) , Moderate persistent asthma without complication Use as directed to check oxygen saturation level 1 Each 07/17/2021 Active Start: 07-17-2021 PULSE OXIMETER [facility] Indications: Chronic obstructive pulmonary disease, unspecified COPD type (HCC) , Moderate persistent asthma without complication Use as directed to check oxygen saturation level 1 Each 0 07/17/2021 Active Comment on above: Use as directed to c heck oxygen saturation level rOPINIRole 0.25 mg oral tabl et (20 sources) Nonergot Dopamine Agonist Start: 09-23-2014 End: 10-18-2023 Comment on above: Take 1 tablet by richard th daily at bedtime. sertraline 100 mg oral table t (20 sources) Serotonin Reuptake Inhibitor Start: 10-22-2013 End: 06-17-2025 Start: 10-22-2013 take 1 tablet by richard twice daily Sertraline 100 MG tablet Active 100 mg PO TWICE A DAY October 22, 2013 12:00am mood Start: 10-22-2013 take 1 tablet by richard th once daily Sertraline 100 MG tablet Active 100 mg PO DAILY October 22, 2013 12:00am Start: 04-18-2013 End: 05-02-2013 Start: 04-18-2013 End: 05-02-2013 take 1 tablet by mouth once daily Sertraline 100 MG tablet Discontinued 100 mg PO DAILY April 18, 2013 1:00am May 02, 2013 9:09pm Comment on above: Take 2 tablets by mo [facility] once daily. tiotropium 0.018 mg inhalation [...] once daily 810 capsule 0 05/05/2022 Active Start: 04-18-2013 Comment on above: inhale 1 capsule by mouth as directed once daily Inhale 1 capsule as instructed once daily. Tiotropium [place] (Spiriva With Handihaler) 1 PUFF inhaler (8 sources) Start: 3 take 1 puff(s) by inhalation once daily Tiotropium [place] (Spiriva With Handihaler) 1 PUFF inhaler Active 1 NMA INHALATION DAILY April 18, 2013 1:00am wheezing Start: 04-18-2013 take 1 puff(s) by in halation once daily Tiotropium [place] (Spiriva With Handihaler) 1 PUFF inhaler Active 1 NMA INHALATION DAILY April 18, 2013 1:00am Start: 04-18-2013 take 1 puff(s) by in halation once daily Tiotropium [place] (Spiriva With Handihaler) 1 PUFF inhaler Active 1 PUFF INHALATION DAILY April 18, 2013 1:00am 24 hr verapamil hydrochlorid e 180 mg extended release oral capsule (20 sources) Calcium Channel He Start: 12-30-2024 Start: 10-09-2024 End: 12-26-2024 Start: 04-18-2013 End: 10-09-2024 Start: 04-18-2013 End: 10-09-2024 Verapamil 240 MG tablet Disc ontinued 360 mg PO DAILY April 18, 2013 1:00am October 09, 2024 3:46pm heart Start: 04-18-2013 take 360 mg by mouth once daily Verapamil Active 360 MG PO DAILY April 18, 2013 1:00am Comment on above: Take 1 tablet by richard th daily at bedtime. vitamin b12 0.5 mg oral tabl et (1 source) Vitamin B12 Start: 02-08-2025 (6 sources) Start: 01-27-2025 Start: 10-22-2013 Completed/Discontinued Medications Medication Drug Class(es) Dates Sig (Normalized) Sig (Original) acetaminophen 325 mg / oxyCODONE hydrochloride 5 mg oral tablet (12 sources) Opioid Agonist Start: 10-22-2013 End: 10-26-2013 Start: 10-22-2013 End: 10-26-2013 Oxycodone-Acetaminophen 1 TA BLET tablet Discontinued 1 - 2 {tbl} PO EVERY 4 HOURS NEEDED as needed for Pain October 22, 2013 12:00am October 26, 2013 3:36pm Start: 10-22-2013 End: 10-26-2013 take 1 tablet by mouth every four hours as needed Oxycodone-Acetaminophen Discontinued 1 - 2 TABLET PO EVERY 4 HOURS NEEDED October 22, 2013 12:00am October 26, 2013 3:36pm aspirin 81 mg delayed release oral tablet (2 sources) Platelet Aggregation Inhibitor, Nonsteroidal Anti-inflammatory Drug End: 01-05-2025 take 1 tablet by mouth once daily aspirin 81 MG EC tablet Take 81 mg by mouth daily. 01/05/2025 Discontinued (Stop taking at discharge) azithromycin 250 mg oral tablet (12 sources) Macrolide Antimicrobial Start: 10-18-2023 End: 09-29-2024 Start: 10-18-2023 End: 09-29-2024 Azithromycin (Zithromax) 250 [...] ne, then, 1 tablet daily until gone. cefdinir 300 mg oral capsule (8 sources) Cephalosporin Antibacterial Start: 2024 End: 2024 cephalexin 500 mg oral capsule (12 sources) Cephalosporin Antibacterial Start: 2013 End: 2013 dextromethorphan hydrobromide 1 mg/ml / guaiFENesin 20 mg/ml / phenylephrine hydrochloride 0.5 mg/ml oral solution (20 sources) Uncompetitive R-txlyko-E-aspartate Receptor Antagonist, Sigma-1 Agonist, alpha-1 Adrenergic Agonist Start: 2018 End: 2022 take 10 mL by mouth every eight hours as needed for chronic obstructive pulmonary disease and chronic obstructive pulmonary disease Ltrwqxvyyamwj-QM-p uaiFENesin (MUCINEX FAST-MAX CONGEST-COUGH) 2.5-5-100 mg/5 mL liqd Indications: Chronic obstructive pulmonary disease, unspecified COPD type (HCC) Take 10 mL by mouth three times daily as needed. 118 mL 1 02/08/2019 02/19/2023 Discontinued Comment on above: Take 10 mL by mouth three times daily as needed. dronedarone 400 mg oral tablet (20 sources) Antiarrhythmic Start: 2024 End: 2024 Start: 10-09-2024 End: 12-26-2024 12 hr guaiFENesin 600 mg ext ended release oral tablet (12 sources) Start: 05-13-2016 End: 10-18-2023 Start: 05-13-2016 End: 10-18-2023 take 1 tablet by mouth twice daily Guaifenesin (Mucus Relief Er) 600 MG tablet Discontinued 600 mg PO TWICE A DAY May 13, 2016 1:00am October 18, 2023 1:05am congestion levoFLOXacin 750 mg oral tab let (20 sources) Quinolone Antimicrobial Start: 01-31-2025 End: 02-08-2025 Start: 10-09-2024 End: 10-31-2024 take 1 tablet by mouth once daily levoFLOXacin (LEVAQUIN) 500 mg tablet Take 500 mg by mouth once daily. 10/09/2024 Active Start: 07-22-2023 End: 10-18-2023 LORazepam 0.5 mg oral tablet (12 sources) Benzodiazepine Start: 05-05-2020 End: 01-25-2025 Start: 05-05-2020 take 1 tablet by mouth at bedt ratna Lorazepam 0.5 MG tablet Active 0.5 mg PO AT BEDTIME May 05, 2020 1:00am anxiety naproxen 500 mg oral tablet (12 sources) Nonsteroidal Anti-inflammatory Drug Start: 10-22-2013 End: 10-26-2013 omeprazole 20 mg delayed release oral capsule (20 sources) Proton Pump Inhibitor Start: 04-18-2013 End: 12-30-2024 Comment on above: TAKE 1 CAPSULE EVERY DAY on an empty sto mach Take [address] [facility] once daily. ON AN EMPTY STOMACH simethicone 250 mg oral capsule (6 sources) Start: 12-27-2024 End: 01-25-2025 50 ml sodium chloride 9 mg/ml injection [...] mg / trimethoprim 160 mg oral tablet (12 sources) Dihydrofolate Reductase Inhibitor Antibacterial, Sulfonamide Antimicrobial Start: 10-22-2013 End: 10-26-2013 Start: 10-22-2013 End: 10-26-2013 Sulfamethoxazole-Trimethopri m 1 TABLET tablet Discontinued 1 {tbl} PO TWICE A DAY 20 0 October 22, 2013 12:00am October 26, [...] chronic] 10-22-2023 Episodic Deficiency and other anemia (14 sources) Anemia; Translations: [Anemia, unspecified] 12-26-2024 Episodic Deficiency and other anemia (7 sources) Chronic anemia; Translations: [Anemia, unspecified] 01-25-2025 Episodic Deficiency and other anemia (1 source) [...] essential hypertension; Translations: [Essential (primary) hypertension] Onset: 02-20-2025 Chronic Headache; including migraine (6 sources) Migraine; Translations: [Migraine, unspecified, not intractable, without status migrainosus] Onset: 12-01-2024 12-01-2024 Chronic Heart valve disorders (20 sources) Aortic valve stenosis; Translations: [Nonrheumatic aortic (valve) stenosis] Onset: 12-01-2024 10-03-2024 Chronic Hypertension with complications and secondary [...] [Candidal stomatitis] 06-15-2023 Episodic Nonspecific chest pain (7 sources) Tight chest; Translations: [Other chest pain] 12-26-2024 Episodic Osteoarthritis (20 sources) Degenerative joint disease involving multiple joints; Translations: [Polyosteoarthritis, unspecified] Onset: 01-27-2007 01-27-2007 Chronic Other aftercare (20 sources) Patient encounter status; Translations: [Encounter for therapeutic drug level monitoring] Onset: 05-16-2021 05-16-2021 Episodic Other aftercare (1 source) Under care of palliative care physician; Translations: [Encounter for palliative care] 11-23-2024 Episodic Other aftercare (1 source) Long-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; 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] 11-23-2024 Episodic Other aftercare (10 sources) 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; 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] 12-26-2024 Episodic Other aftercare (1 source) Encounter for palliative care; Translations: [Encounter for palliative care] Onset: 01-16-2025 Episodic Other hereditary and degenerative nervous system conditions (6 sources) Restless legs; Translations: [Restless legs syndrome] Onset: 12-01-2024 12-01-2024 Chronic Other inflammatory condition of skin (2 sources) Itching ; Translations: [Pruritus, unspecified] 12-22-2024 Episodic Other lower respiratory disease (20 sources) Respiratory insufficiency; Translations: [Other abnormalities of breathing] 07-20-2023 Episodic Other lower respiratory disease (12 sources) Hypoxia; Translations: [Hypoxemia] 07-20-2023 Episodic Other [...] HPV] 01-27-2007 Episodic Other upper respiratory infections (14 sources) Viral upper respiratory tract infection; Translations: [Acute upper respiratory infection, unspecified] 07-20-2023 Episodic Pneumonia (except that caused by tuberculosis or sexually transmitted disease) (12 sources) Pneumonia; Translations: [Pneumonia, unspecified organism] Onset: 01-31-2025 01-25-2025 Episodic Residual codes; unclassified (12 sources) Tobacco use and exposure - finding; Translations: [Tobacco use] 04-03-2015 Episodic Residual codes; unclassified (1 source) Failed encounter; Translations: [No-show for appointment] 11-21-2024 Episodic Residual codes; unclassified (1 source) History of lung lobectomy; 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 [part of]] 11-23-2024 Episodic Respiratory failure; insufficiency; arrest (adult) (20 sources) Chronic hypoxemic respiratory failure; Translations: [Chronic respiratory failure with hypoxia] Onset: 02-20-2022 Chronic Respiratory failure; insufficiency; arrest (adult) (8 sources) Acute respiratory failure; Translations: [Acute respiratory failure, unspecified whether with hypoxia or hypercapnia] Onset: 02-06-2025 01-25-2025 Episodic Spondylosis; intervertebral disc disorders; other back [...] 06-21-2016 Resolved: 06-27-2016 06-27-2016 Episodic Cardiac dysrhythmias (20 sources) Tachycardia; Translations: [Tachycardia, unspecified] Onset: 10-16-2024 10-02-2024 Episodic Other gastrointestinal disorders (20 sources) Constipation; Translations: [Constipation, unspecified] Onset: 06-21-2016 Resolved: 06-27-2016 06-27-2016 Episodic Other hematologic conditions (20 sources) Lesion of spleen; Translations: [Other diseases of spleen] Onset: 06-25-2016 06-27-2016 Episodic Unclassified (1 source) Patient encounter status 06-03-2024 Results Test Name Value Interpretation Reference Range Facility 36on 02-13-2025 36 Spoke to Mike. [facility] patient will possibly be discharged in 10 days. [facility] patient is doing okay and will update as she progresses. Plan to follow up in one month if no contact. [facility] 36 Patients called with update. She was discharged to [facility] from [facility] 36 PC to patient. Unabl e to LMOM- voicemail box full. PC to patient significant other, LMOM to call office back. [facility] 36 Can we try and call SO? mm [facility] Absolute lymphocyte countOrd ered By: Jessica Luo on 02-13-2025 Lymphocytes Auto (Unsp spec) [#/Vol] 1.75 10*3/uL 0.83-4.51 [facility] Anion gap in Serum or Plasma Ordered By: Jessica Luo on 02-13-2025 Anion gap [Moles/Vol] 5 mmol/L 5-15 [facility] Automated lymphocyte count a s percentage of total leukocytesOrdered By: Jessica Luo on 02-13-2025 Lymphocytes/100 WBC Auto (Unsp spec) 25.0 % - [facility] BUN/creatinine ratioOrdered By: Jessica Lou on 02-13-2025 Urea nitrogen/Creatinine [Mass ratio] 32.2 mg/mg High 02-12 [facility] Basic Metabolic Profile (BMP )on 02-13-2025 BUN/CRE 32.2 RATIO High 02-12 [facility] Comment on above: Order Comment: 209 Performed By: #### L 100.0100, L500.2500, L501.5200 ####[facility] [address] [place], [address] Calcium [Mass/Vol] 8.4 mg/dL Normal 7.6-11.0 [facility] Comment on above: Order Comment: 209 Performed By: #### L 100.0100, L500.2500, L501.5200 ####[facility] [address] [place], [address] Chloride [Moles/Vol] 99 mmol/L Normal 98-108 [facility] Comment on above: Order Comment: 209 Performed By: #### L 100.0100, L500.2500, L501.5200 ####[facility] [address] [place], [address] CO2 [Moles/Vol] 37.5 mmol/L High 21.0-32.0 [facility] Comment on above: Order Comment: 209 Performed By: #### L 100.0100, L500.2500, L501.5200 ####[facility] [address] [place], [address] Creatinine [Mass/Vol] 0.54 mg/dL Low 0.70-1.20 [facility] Comment on above: Order Comment: 209 Performed By: #### L 100.0100, L500.2500, L501.5200 ####[facility] [address] [place], [address] GAP 5 Normal 5-15 [facility] Comment on above: Order Comment: 209 Performed By: #### L 100.0100, L500.2500, L501.5200 ####[facility] [address] [place], [address] GFR/1.73 sq M.predicted among non-blacks MDRD (S/P/Bld) [Vol rate/Area] 99 mL/min/{1.73_m2} Normal >60 [facility] Comment on above: Order Comment: 209 Result Comment: mL/m in/1.73m2 CKD-EPI Creatinine Equation (2020) Performed By: #### L 100.0100, L500.2500, L501.5200 ####[facility] [address] [place], [address] Glucose [Mass/Vol] 80 mg/dL Normal 70-99 [facility] Comment on above: Order Comment: 209 Performed By: #### L 100.0100, L500.2500, L501.5200 ####[facility] [address] [place], [address] Potassium [Moles/Vol] 4.3 mmol/L Normal 3.3-5.1 [facility] Comment on above: Order Comment: 209 Performed By: #### L 100.0100, L500.2500, L501.5200 ####[facility] [address] [place], [address] Sodium [Moles/Vol] 141 mmol/L Normal 133-145 [facility] Comment on above: Order Comment: 209 Performed By: #### L 100.0100, L500.2500, L501.5200 ####[facility] [address] [place], [address] Urea nitrogen [Mass/Vol] 18 mg/dL Normal 4-19 [facility] Comment on above: Order Comment: 209 Performed By: #### L 100.0100, L500.2500, L501.5200 ####[facility] [address] [place], [address] Basophil percentageOrdered B y: Jessica Luo on 02-13-2025 Basophils/100 WBC (Bld) 0.1 % 0-1 [facility] CBC W/Diff, Automatedon 01-25 Absolute Lymph 1.75 X10 3/uL Normal 0.83-4.51 [facility] Comment on above: Order Comment: 209 Performed By: #### L 100.0100, L500.2500, L501.5200 ####[facility] [address] [place], [address] Absolute Neut 4.7 X10 3/uL Normal 2.0-7.7 [facility] Comment on above: Order Comment: 209 Performed By: #### L 100.0100, L500.2500, L501.5200 ####[facility] [address] [place], [address] Basophils/100 WBC (Bld) 0.1 % Normal 0-1 [facility] Comment on above: Order Comment: 209 Performed By: #### L 100.0100, L500.2500, L501.5200 ####[facility] [address] [place], [address] Eosinophils/100 WBC (Bld) 1.0 % Normal 0-5 [facility] Comment on above: Order Comment: 209 Performed By: #### L 100.0100, L500.2500, L501.5200 ####[facility] [address] [place], [address] Erythrocyte distribution width (RBC) [Ratio] 17.2 % High 11.6-14.6 [facility] Comment on above: Order Comment: 209 Performed By: #### L 100.0100, L500.2500, L501.5200 ####[facility] [address] [place], [address] Hematocrit (Bld) [Volume fraction] 28.3 % Low 37-47 [facility] Comment on above: Order Comment: 209 Performed By: #### L 100.0100, L500.2500, L501.5200 ####[facility] [address] [place], [address] Hemoglobin (Bld) [Mass/Vol] 8.5 g/dL Low 12.0-15.0 [facility] Comment on above: Order Comment: 209 Performed By: #### L 100.0100, L500.2500, L501.5200 ####[facility] [address] [place], [address] IG% 0.700 Normal 0.0-0.9 [facility] Comment on above: Order Comment: 209 Result Comment: IG% - Immature Granulocytes (promyelocytes, myelocytes andmetamyelocytes) > 1% indicates that a LEFT SHIFT is Present. Performed By: #### L 100.0100, L500.2500, L501.5200 ####[facility] [address] [place], [address] Lymphocytes/100 WBC (Bld) 25.0 % Normal 19-41 [facility] Comment on above: Order Comment: 209 Performed By: #### L 100.0100, L500.2500, L501.5200 ####[facility] [address] [place], [address] MCH (RBC) [Entitic mass] 24.6 pg Low 27.0-32.0 [facility] Comment on above: Order Comment: 209 Performed By: #### L 100.0100, L500.2500, L501.5200 ####[facility] [address] [place], [address] MCHC (RBC) [Mass/Vol] 30.0 g/dL Low 32-36 [facility] Comment on above: Order Comment: 209 Performed By: #### L 100.0100, L500.2500, L501.5200 ####[facility] [address] [place], [address] MCV (RBC) [Entitic vol] 81.8 fL Normal 81-99 [facility] Comment on above: Order Comment: 209 Performed By: #### L 100.0100, L500.2500, L501.5200 ####[facility] [address] [place], [address] Monocytes/100 WBC (Bld) 6.3 % Normal 0-10 [facility] Comment on above: Order Comment: 209 Performed By: #### L 100.0100, L500.2500, L501.5200 ####[facility] [address] [place], [address] Neutrophils/100 WBC (Bld) 66.9 % Normal 47-70 [facility] Comment on above: Order Comment: 209 Performed By: #### L 100.0100, L500.2500, L501.5200 ####[facility] [address] [place], [address] Nucleated RBC (Bld) [#/Vol] 0 10*3/uL Normal 0-5 [facility] Comment on above: Order Comment: 209 Performed By: #### L 100.0100, L500.2500, L501.5200 ####[facility] [address] [place], [address] Platelet mean volume (Bld) [Entitic vol] 11.3 fL Normal 6.2-12.0 [facility] Comment on above: Order Comment: 209 Performed By: #### L 100.0100, L500.2500, L501.5200 ####[facility] [address] [place], [address] Platelets (Bld) [#/Vol] 197 10*3/uL Normal 150-450 [facility] Comment on above: Order Comment: 209 Performed By: #### L 100.0100, L500.2500, L501.5200 ####[facility] [address] [place], [address] RBC (Bld) [#/Vol] 3.46 10*6/uL Low 4.2-5.4 [facility] Comment on above: Order Comment: 209 Performed By: #### L 100.0100, L500.2500, L501.5200 ####[facility] [address] [place], [address] RDW SD 51.0 fl High 35.1-43.9 [facility] Comment on above: Order Comment: 209 Performed By: #### L 100.0100, L500.2500, L501.5200 ####[facility] [address] [place], [address] WBC (Bld) [#/Vol] 7.0 10*3/uL Normal 4.4-11.0 [facility] Comment on above: Order Comment: 209 Performed By: #### L 100.0100, L500.2500, L501.5200 ####[facility] [address] [place], [address] Carbon dioxide, total [Moles /volume] in Central venous bloodOrdered By: Jessica Lou on 02-13-2025 CO2 [Moles/Vol] 37.5 mmol/L High 21.0-32.0 [facility] Chloride assayOrdered By: Ollie Luo on 02-13-2025 Chloride [Moles/Vol] 99 mmol/L 98-108 [facility] Eosinophil percentageOrdered By: Jessica Luo on 02-13-2025 Eosinophils/100 WBC (Bld) 1.0 % 0-5 [facility] Erythrocyte distribution wid th ratioOrdered By: Jessica Luo on 02-13-2025 Erythrocyte distribution width (RBC) [Ratio] 17.2 % High 11.6-14.6 [facility] Erythrocyte distribution wid th standard deviationOrdered By: Jessica Luo on 02-13-2025 Erythrocyte distribution width (RBC) [Ratio] 51.0 fl High 35.1-43.9 [facility] Glomerular filtration rate ( GFR) estimation/1.73 sq m using serum, plasma, or whole bOrdered By: Jessica Luo on 10-21-2025 GFR/1.73 sq M.predicted among non-blacks MDRD (S/P/Bld) [Vol rate/Area] 99 mL/min/{1.73_m2} >60 [facility] Hematocrit Auto (Bld) [Volum e fraction]Ordered By: Jessica Luo on 02-13-2025 Hematocrit (Bld) [Volume fraction] 28.3 % Low 37-47 [facility] Hemoglobin measurementOrdere d By: Jessica Luo on 02-13-2025 Hemoglobin (Bld) [Mass/Vol] 8.5 g/dL Low 12.0-15.0 [facility] Immature granulocytes/100 WB C Auto (Bld)Ordered By: Jessica Luo on 02-13-2025 Immature granulocytes/100 WBC (Bld) 0.700 % 0.0-0.9 [facility] MCV (mean corpuscular volume ) determinationOrdered By: Jessica Luo on 02-13-2025 MCV (RBC) [Entitic vol] 81.8 fL 81-99 [facility] Magnesiumon 02-13-2025 Magnesium [Mass/Vol] 2.1 mg/dL Normal 1.5-2.2 [facility] Comment on above: Order Comment: 209 Performed By: #### L 100.0100, L500.2500, L501.5200 ####[facility] [address] [place], [address] Magnesium measurement (mass/ volume)Ordered By: Jessica Luo on 02-13-2025 Magnesium (Unsp spec) [Mass/Vol] 2.1 mg/dL 1.5-2.2 [facility] Mean corpuscular hemoglobin (MCH) determinationOrdered By: Jessica Luo on 02-13-2025 MCH (RBC) [Entitic mass] 24.6 pg Low 27.0-32.0 [facility] Monocyte percentageOrdered B y: Jessica Luo on 02-13-2025 Monocytes/100 WBC (Bld) 6.3 % 0-10 [facility] Neutrophil percentageOrdered By: Jessica Luo on 02-13-2025 Neutrophils/100 WBC (Bld) 66.9 % 47-70 [facility] Platelet countOrdered By: Ollie Luo on 02-13-2025 Platelets (Bld) [#/Vol] 197 10*3/uL 150-450 [facility] Potassium measurement (mass/ volume)Ordered By: Jessica Luo on 02-13-2025 Potassium (Unsp spec) [Mass/Vol] 4.3 mmol/L 3.3-5.1 [facility] RBC Auto (Bld) [#/Vol]Ordere d By: Jessica Luo on 02-13-2025 RBC (Bld) [#/Vol] 3.46 10*6/uL Low 4.2-5.4 [facility] Serum creatinine measurement (mass/volume)Ordered By: Jessica Luo on 02-13-2025 Creatinine [Mass/Vol] 0.54 mg/dL Low 0.70-1.20 [facility] Serum glucose measurement (m ass/volume)Ordered By: Jessica Luo on 02-13-2025 Glucose [Mass/Vol] 80 mg/dL 70-99 [facility] Serum or plasma calcium kadi urement (mass/volume)Ordered By: Jessica Luo on 02-13-2025 Calcium [Mass/Vol] 8.4 mg/dL 7.6-11.0 [facility] Serum or plasma urea nitroge n measurement (mass/volume)Ordered By: Jessica Luo on 02-13-2025 Urea nitrogen [Mass/Vol] 18 mg/dL 4-19 [facility] Sodium levelOrdered By: Ang Luo on 02-13-2025 Sodium [Moles/Vol] 141 mmol/L 133-145 [facility] White blood cell (WBC) count Ordered By: Jessica Luo on 02-13-2025 WBC (Bld) [#/Vol] 7.0 10*3/uL 4.4-11.0 [facility] Anion gap in Serum or Plasma Ordered By: Jessica Luo on 02-08-2025 Anion gap [Moles/Vol] 7 mmol/L 5-15 [facility] BUN/creatinine ratioOrdered By: Jessica Luo on 02-08-2025 Urea nitrogen/Creatinine [Mass ratio] 21.7 mg/mg High 02-12 [facility] Basic Metabolic Profile (BMP )on 02-08-2025 BUN/CRE 21.7 RATIO High 02-12 [facility] Comment on above: Performed By: #### L 500.2500 ####[facility] [address] [place], [address] Calcium [Mass/Vol] 8.6 mg/dL Normal 7.6-11.0 [facility] Comment on above: Performed By: #### L 500.2500 ####[facility] [address] [place], [address] Chloride [Moles/Vol] 94 mmol/L Low 98-108 [facility] Comment on above: Performed By: #### L 500.2500 ####[facility] [address] [place], [address] CO2 [Moles/Vol] 41.8 mmol/L High 21.0-32.0 [facility] Comment on above: Performed By: #### L 500.2500 ####[facility] [address] [place], [address] Creatinine [Mass/Vol] 0.57 mg/dL Low 0.70-1.20 [facility] Comment on above: Performed By: #### L 500.2500 ####[facility] [address] [place], [address] GAP 7 Normal 5-15 [facility] Comment on above: Performed By: #### L 500.2500 ####[facility] [address] [place], [address] GFR/1.73 sq M.predicted among non-blacks MDRD (S/P/Bld) [Vol rate/Area] 98 mL/min/{1.73_m2} Normal >60 [facility] Comment on above: Result Comment: mL/m in/1.73m2 CKD-EPI Creatinine Equation (2020) Performed By: #### L 500.2500 ####[facility] [address] [place], [address] Glucose [Mass/Vol] 81 mg/dL Normal 70-99 [facility] Comment on above: Performed By: #### L 500.2500 ####[facility] [address] [place], [address] Potassium [Moles/Vol] 4.2 mmol/L Normal 3.3-5.1 [facility] Comment on above: Performed By: #### L 500.2500 ####[facility] [address] [place], [address] Sodium [Moles/Vol] 142 mmol/L Normal 133-145 [facility] Comment on above: Performed By: #### L 500.2500 ####[facility] [address] [place], [address] Urea nitrogen [Mass/Vol] 12 mg/dL Normal 4-19 [facility] Comment on above: Performed By: #### L 500.2500 ####[facility] [address] [place], [address] Carbon dioxide, total [Moles /volume] in Central venous bloodOrdered By: Jessica Luo on 02-08-2025 CO2 [Moles/Vol] 41.8 mmol/L High 21.0-32.0 [facility] Cardiology Visit Reporton Cardiology Visit Report Normal [facility] Chloride assayOrdered By: Ollie Luo on 02-08-2025 Chloride [Moles/Vol] 94 mmol/L Low 98-108 [facility] Glomerular filtration rate ( GFR) estimation/1.73 sq m using serum, plasma, or whole bOrdered By: Jessica Luo on 02-08-2025 GFR/1.73 sq M.predicted among non-blacks MDRD (S/P/Bld) [Vol rate/Area] 98 mL/min/{1.73_m2} >60 [facility] Potassium measurement (mass/ volume)Ordered By: Jessica Luo on 02-08-2025 Potassium (Unsp spec) [Mass/Vol] 4.2 mmol/L 3.3-5.1 [facility] Serum creatinine measurement (mass/volume)Ordered By: Jessica Luo on 02-08-2025 Creatinine [Mass/Vol] 0.57 mg/dL Low 0.70-1.20 [facility] Serum glucose measurement (m ass/volume)Ordered By: Jessica Luo on 02-08-2025 Glucose [Mass/Vol] 81 mg/dL 70-99 [facility] Serum or plasma calcium kadi urement (mass/volume)Ordered By: Jessica Luo on 02-08-2025 Calcium [Mass/Vol] 8.6 mg/dL 7.6-11.0 [facility] Serum or plasma urea nitroge n measurement (mass/volume)Ordered By: Jessica Luo on 02-08-2025 Urea nitrogen [Mass/Vol] 12 mg/dL 4-19 [facility] Sodium levelOrdered By: Ang Luo on 02-08-2025 Sodium [Moles/Vol] 142 mmol/L 133-145 [facility] Absolute lymphocyte countOrd ered By: Jessica Luo on 02-06-2025 Lymphocytes Auto (Unsp spec) [#/Vol] 1.49 10*3/uL 0.83-4.51 [facility] Anion gap in Serum or Plasma Ordered By: Jessica Luo on 02-06-2025 Anion gap [Moles/Vol] 7 mmol/L 5-15 [facility] Automated lymphocyte count a s percentage of total leukocytesOrdered By: Jessica Luo on 02-06-2025 Lymphocytes/100 WBC Auto (Unsp spec) 19.0 % 19-41 [facility] BUN/creatinine ratioOrdered By: Jessica Luo on 02-06-2025 Urea nitrogen/Creatinine [Mass ratio] 21.7 mg/mg High 10-20 [facility] Basic Metabolic Profile (BMP )on 02-06-2025 BUN/CRE 21.7 RATIO High 10-20 [facility] Comment on above: Order Comment: 209.1 Performed By: #### L 100.0100, L500.2500, L501.5200 ####[facility] [address] [place], [address] Calcium [Mass/Vol] 8.5 mg/dL Normal 7.6-11.0 [facility] Comment on above: Order Comment: 209.1 Performed By: #### L 100.0100, L500.2500, L501.5200 ####[facility] [address] [place], [address] Chloride [Moles/Vol] 93 mmol/L Low 98-108 [facility] Comment on above: Order Comment: 209.1 Performed By: #### L 100.0100, L500.2500, L501.5200 ####[facility] [address] [place], [address] CO2 [Moles/Vol] 43.4 mmol/L High 21.0-32.0 [facility] Comment on above: Order Comment: 209.1 Performed By: #### L 100.0100, L500.2500, L501.5200 ####[facility] [address] [place], [address] Creatinine [Mass/Vol] 0.55 mg/dL Low 0.70-1.20 [facility] Comment on above: Order Comment: 209.1 Performed By: #### L 100.0100, L500.2500, L501.5200 ####[facility] [address] [place], [address] GAP 7 Normal 5-15 [facility] Comment on above: Order Comment: 209.1 Performed By: #### L 100.0100, L500.2500, L501.5200 ####[facility] [address] [place], [address] GFR/1.73 sq M.predicted among non-blacks MDRD (S/P/Bld) [Vol rate/Area] 99 mL/min/{1.73_m2} Normal >60 [facility] Comment on above: Order Comment: 209.1 Result Comment: mL/m in/1.73m2 CKD-EPI Creatinine Equation (2020) Performed By: #### L 100.0100, L500.2500, L501.5200 ####[facility] [address] [place], [address] Glucose [Mass/Vol] 77 mg/dL Normal 70-99 [facility] Comment on above: Order Comment: . Performed By: #### L 100.0100, L500.2500, L501.5200 ####[facility] [address] [place], [address] Potassium [Moles/Vol] 3.2 mmol/L Low 3.3-5.1 [facility] Comment on above: Order Comment: . Performed By: #### L 100.0100, L500.2500, L501.5200 ####[facility] [address] [place], [address] Sodium [Moles/Vol] 143 mmol/L Normal 133-145 [facility] Comment on above: Order Comment: .1 Performed By: #### L 100.0100, L500.2500, L501.5200 ####[facility] [address] [place], [address] Urea nitrogen [Mass/Vol] 12 mg/dL Normal 4-19 [facility] Comment on above: Order Comment: 209.1 Performed By: #### L 100.0100, L500.2500, L501.5200 ####[facility] [address] [place], [address] Basophil percentageOrdered B y: Jessica Luo on 02-06-2025 Basophils/100 WBC (Bld) 0.1 % 0-1 [facility] CBC W/Diff, Automatedon 01-24 Absolute Lymph 1.49 X10 3/uL Normal 0.83-4.51 [facility] Comment on above: Order Comment: 209. Performed By: #### L 100.0100, L500.2500, L501.5200 ####[facility] [address] [place], [address] Absolute Neut 5.7 X10 3/uL Normal 2.0-7.7 [facility] Comment on above: Order Comment: . Performed By: #### L 100.0100, L500.2500, L501.5200 ####[facility] [address] [place], [address] Basophils/100 WBC (Bld) 0.1 % Normal 0-1 [facility] Comment on above: Order Comment: . Performed By: #### L 100.0100, L500.2500, L501.5200 ####[facility] [address] [place], [address] Eosinophils/100 WBC (Bld) 0.3 % Normal 0-5 [facility] Comment on above: Order Comment: .1 Performed By: #### L 100.0100, L500.2500, L501.5200 ####[facility] [address] [place], [address] Erythrocyte distribution width (RBC) [Ratio] 16.2 % High 11.6-14.6 [facility] Comment on above: Order Comment: 209.1 Performed By: #### L 100.0100, L500.2500, L501.5200 ####[facility] [address] [place], [address] Hematocrit (Bld) [Volume fraction] 31.7 % Low 37-47 [facility] Comment on above: Order Comment: 209.1 Performed By: #### L 100.0100, L500.2500, L501.5200 ####[facility] [address] [place], [address] Hemoglobin (Bld) [Mass/Vol] 9.5 g/dL Low 12.0-15.0 [facility] Comment on above: Order Comment: .1 Performed By: #### L 100.0100, L500.2500, L501.5200 ####[facility] [address] [place], [address] IG% 0.600 Normal 0.0-0.9 [facility] Comment on above: Order Comment: .1 Result Comment: IG% - Immature Granulocytes (promyelocytes, myelocytes andmetamyelocytes) > 1% indicates that a LEFT SHIFT is Present. Performed By: #### L 100.0100, L500.2500, L501.5200 ####[facility] [address] [place], [address] Lymphocytes/100 WBC (Bld) 19.0 % Normal 19-41 [facility] Comment on above: Order Comment: .1 Performed By: #### L 100.0100, L500.2500, L501.5200 ####[facility] [address] [place], [address] MCH (RBC) [Entitic mass] 24.5 pg Low 27.0-32.0 [facility] Comment on above: Order Comment: .1 Performed By: #### L 100.0100, L500.2500, L501.5200 ####[facility] [address] [place], [address] MCHC (RBC) [Mass/Vol] 30.0 g/dL Low 32-36 [facility] Comment on above: Order Comment: .1 Performed By: #### L 100.0100, L500.2500, L501.5200 ####[facility] [address] [place], [address] MCV (RBC) [Entitic vol] 81.9 fL Normal 81-99 [facility] Comment on above: Order Comment: .1 Performed By: #### L 100.0100, L500.2500, L501.5200 ####[facility] [address] [place], [address] Monocytes/100 WBC (Bld) 7.3 % Normal 0-10 [facility] Comment on above: Order Comment: .1 Performed By: #### L 100.0100, L500.2500, L501.5200 ####[facility] [address] [place], [address] Neutrophils/100 WBC (Bld) 72.7 % High 47-70 [facility] Comment on above: Order Comment: .1 Performed By: #### L 100.0100, L500.2500, L501.5200 ####[facility] [address] [place], [address] Nucleated RBC (Bld) [#/Vol] 0 10*3/uL Normal 0-5 [facility] Comment on above: Order Comment: .1 Performed By: #### L 100.0100, L500.2500, L501.5200 ####[facility] [address] [place], [address] Platelet mean volume (Bld) [Entitic vol] 12.3 fL High 6.2-12.0 [facility] Comment on above: Order Comment: .1 Performed By: #### L 100.0100, L500.2500, L501.5200 ####[facility] [address] [place], [address] Platelets (Bld) [#/Vol] 176 10*3/uL Normal 150-450 [facility] Comment on above: Order Comment: .1 Performed By: #### L 100.0100, L500.2500, L501.5200 ####[facility] [address] [place], [address] RBC (Bld) [#/Vol] 3.87 10*6/uL Low 4.2-5.4 [facility] Comment on above: Order Comment: . Performed By: #### L 100.0100, L500.2500, L501.5200 ####[facility] [address] [place], [address] RDW SD 47.8 fl High 35.1-43.9 [facility] Comment on above: Order Comment: . Performed By: #### L 100.0100, L500.2500, L501.5200 ####[facility] [address] [place], [address] WBC (Bld) [#/Vol] 7.9 10*3/uL Normal 4.4-11.0 [facility] Comment on above: Order Comment: . Performed By: #### L 100.0100, L500.2500, L501.5200 ####[facility] [address] [place], [address] Carbon dioxide, total [Moles /volume] in Central venous bloodOrdered By: Jessica Luo on 02-06-2025 CO2 [Moles/Vol] 43.4 mmol/L High 21.0-32.0 [facility] Chloride assayOrdered By: Ollie Luo on 02-06-2025 Chloride [Moles/Vol] 93 mmol/L Low 98-108 [facility] Eosinophil percentageOrdered By: Jessica Lou on 02-06-2025 Eosinophils/100 WBC (Bld) 0.3 % 0-5 [facility] Erythrocyte distribution wid th ratioOrdered By: Jessica Luo on 02-06-2025 Erythrocyte distribution width (RBC) [Ratio] 16.2 % High 11.6-14.6 [facility] Erythrocyte distribution wid th standard deviationOrdered By: Jessica Lou on 02-06-2025 Erythrocyte distribution width (RBC) [Ratio] 47.8 fl High 35.1-43.9 [facility] Glomerular filtration rate ( GFR) estimation/1.73 sq m using serum, plasma, or whole bOrdered By: Jessica Luo on 02-06-2025 GFR/1.73 sq M.predicted among non-blacks MDRD (S/P/Bld) [Vol rate/Area] 99 mL/min/{1.73_m2} >60 [facility] Hematocrit Auto (Bld) [Volum e fraction]Ordered By: Jessicaanna Luo on 02-06-2025 Hematocrit (Bld) [Volume fraction] 31.7 % Low 37-47 [facility] Hemoglobin measurementOrdere d By: Jessica Luo on 02-06-2025 Hemoglobin (Bld) [Mass/Vol] 9.5 g/dL Low 12.0-15.0 [facility] Immature granulocytes/100 WB C Auto (Bld)Ordered By: Jessica Luo on 02-06-2025 Immature granulocytes/100 WBC (Bld) 0.600 % 0.0-0.9 [facility] MCV (mean corpuscular volume ) determinationOrdered By: Jessica Luo on 02-06-2025 MCV (RBC) [Entitic vol] 81.9 fL 81-99 [facility] Magnesiumon 02-06-2025 Magnesium [Mass/Vol] 2.2 mg/dL Normal 1.5-2.2 [facility] Comment on above: Order Comment: 209.1 Performed By: #### L 100.0100, L500.2500, L501.5200 ####[facility] [address] [place], [address] Magnesium measurement (mass/ volume)Ordered By: Jessica Luo on 02-06-2025 Magnesium (Unsp spec) [Mass/Vol] 2.2 mg/dL 1.5-2.2 [facility] Mean corpuscular hemoglobin (MCH) determinationOrdered By: Jessica Luo on 02-06-2025 MCH (RBC) [Entitic mass] 24.5 pg Low 27.0-32.0 [facility] Monocyte percentageOrdered B y: Jessica Luo on 02-06-2025 Monocytes/100 WBC (Bld) 7.3 % 0-10 [facility] Neutrophil percentageOrdered By: Jessica Luo on 02-06-2025 Neutrophils/100 WBC (Bld) 72.7 % High 47-70 [facility] Platelet countOrdered By: Ollie Luo on 02-06-2025 Platelets (Bld) [#/Vol] 176 10*3/uL 150-450 [facility] Potassium measurement (mass/ volume)Ordered By: Jessica Luo on 02-06-2025 Potassium (Unsp spec) [Mass/Vol] 3.2 mmol/L Low 3.3-5.1 [facility] RBC Auto (Bld) [#/Vol]Ordere d By: Jessica Luo on 02-06-2025 RBC (Bld) [#/Vol] 3.87 10*6/uL Low 4.2-5.4 [facility] Serum creatinine measurement (mass/volume)Ordered By: Jessica Luo on 02-06-2025 Creatinine [Mass/Vol] 0.55 mg/dL Low 0.70-1.20 [facility] Serum glucose measurement (m ass/volume)Ordered By: Jessica Luo on 02-06-2025 Glucose [Mass/Vol] 77 mg/dL 70-99 [facility] Serum or plasma calcium kadi urement (mass/volume)Ordered By: Jessica Luo on 02-06-2025 Calcium [Mass/Vol] 8.5 mg/dL 7.6-11.0 [facility] Serum or plasma urea nitroge n measurement (mass/volume)Ordered By: Jessica Luo on 02-06-2025 Urea nitrogen [Mass/Vol] 12 mg/dL 4-19 [facility] Sodium levelOrdered By: Ang Luo on 02-06-2025 Sodium [Moles/Vol] 143 mmol/L 133-145 [facility] White blood cell (WBC) count Ordered By: Jessica Luo on 02-06-2025 WBC (Bld) [#/Vol] 7.9 10*3/uL 4.4-11.0 [facility] 36on 02-05-2025 36 Chart reviewed, patient admitted to [facility] 01/25-01/31 with the following event summary: 69-year-old female with a history of severe aortic valve stenosis being worked up for TAVR in [place], COPD with chronic hypoxic respiratory failure on 3 L home O2, anxiety, GERD, restless leg syndrome, A-fib presented to [facility] ED 01/25/25 for worsening shortness of breath over 2 weeks. Patient required emergent intubation in the ED due to respiratory distress after she didnot tolerate BiPAP. Patient diagnosed with COPD exacerbation from bilateral multifocal pneumonia with chest x-ray and CTA showing suspicion for multifocal pneumonia but no PE. Patient admitted to ICU and started on bronchodilators andSolu-Medrol as well as IV antibiotics, sputum culture grew Pseudomonas. Patientstabilized and was able to be extubated 01/27. She was maintained on Levaquin, inhalers were continued and she tolerated switch from IV Solu-Medrol to p.o. prednisone. There was a brief time when she was intubated there was concern of possible blood in the ET tube/pink frothy sputum and Eliquis was held however this resolved and when Eliquis was reinitiated this did not recur. She also had significant anxiety, home meds were restarted and she did have a small dose of Xanax started as needed which seem to help significantly. On day of discharge patient seems to be back to baseline, has chronic shortness of breath but significantly improved from presentation, improved swelling in lower extremities" Tried to contact patient for follow-up, no answer and voicemail full Normal [facility] Basic Metabolic Profile (BMP )on 02-03-2025 BUN Normal - [facility] Comment on above: Result Comment: Canc elled via OM: Order cancelled - Patient discharged Performed By: #### L 100.0100, L500.2500 ####[facility] [address] [place], [address] BUN/CRE Normal - [facility] Comment on above: Result Comment: Canc elled via OM: Order cancelled - Patient discharged Performed By: #### L 100.0100, L500.2500 ####[facility] [address] [place], [address] Calcium Normal 7.6-11.0 [facility] Comment on above: Result Comment: Canc elled via OM: Order cancelled - Patient discharged Performed By: #### L 100.0100, L500.2500 ####[facility] [address] [place], [address] CL Normal 98-108 [facility] Comment on above: Result Comment: Canc elled via OM: Order cancelled - Patient discharged Performed By: #### L 100.0100, L500.2500 ####[facility] [address] [place], [address] CO2 Normal 21.0-32.0 [facility] Comment on above: Result Comment: Canc elled via OM: Order cancelled - Patient discharged Performed By: #### L 100.0100, L500.2500 ####[facility] [address] [place], [address] CREAT,SERUM Normal 0.70-1.20 [facility] Comment on above: Result Comment: Canc elled via OM: Order cancelled - Patient discharged Performed By: #### L 100.0100, L500.2500 ####[facility] [address] [place], [address] eGFR Normal >60 [facility] Comment on above: Result Comment: Canc elled via OM: Order cancelled - Patient discharged Performed By: #### L 100.0100, L500.2500 ####[facility] [address] [place], [address] GAP Normal 5-15 [facility] Comment on above: Result Comment: Canc elled via OM: Order cancelled - Patient discharged Performed By: #### L 100.0100, L500.2500 ####[facility] [address] [place], [address] GLU Normal 70-99 [facility] Comment on above: Result Comment: Canc elled via OM: Order cancelled - Patient discharged Performed By: #### L 100.0100, L500.2500 ####[facility] [address] [place], [address] Potassium Normal 3.3-5.1 [facility] Comment on above: Result Comment: Canc elled via OM: Order cancelled - Patient discharged Performed By: #### L 100.0100, L500.2500 ####[facility] [address] [place], [address] Basic Metabolic Profile (BMP) Normal 133-145 [facility] Comment on above: Result Comment: Canc elled via OM: Order cancelled - Patient discharged Performed By: #### L 100.0100, L500.2500 ####[facility] [address] [place], [address] CBC W/Diff, Automatedon 10-1 Absolute Neut Normal 2.0-7.7 [facility] Comment on above: Result Comment: Canc elled via OM: Order cancelled - Patient discharged Performed By: #### L 100.0100, L500.2500 ####[facility] [address] [place], [address] HCT Normal 37-47 [facility] Comment on above: Result Comment: Canc elled via OM: Order cancelled - Patient discharged Performed By: #### L 100.0100, L500.2500 ####[facility] [address] [place], [address] HGB Normal 12.0-15.0 [facility] Comment on above: Result Comment: Canc elled via OM: Order cancelled - Patient discharged Performed By: #### L 100.0100, L500.2500 ####[facility] [address] [place], [address] MCH Normal 27.0-32.0 [facility] Comment on above: Result Comment: Canc elled via OM: Order cancelled - Patient discharged Performed By: #### L 100.0100, L500.2500 ####[facility] [address] [place], [address] MCHC Normal 32-36 [facility] Comment on above: Result Comment: Canc elled via OM: Order cancelled - Patient discharged Performed By: #### L 100.0100, L500.2500 ####[facility] [address] [place], [address] MCV Normal 81-99 [facility] Comment on above: Result Comment: Canc elled via OM: Order cancelled - Patient discharged Performed By: #### L 100.0100, L500.2500 ####[facility] [address] [place], [address] NEUT% Normal 47-70 [facility] Comment on above: Result Comment: Canc elled via OM: Order cancelled - Patient discharged Performed By: #### L 100.0100, L500.2500 ####[facility] [address] [place], [address] PLT Normal 150-450 [facility] Comment on above: Result Comment: Canc elled via OM: Order cancelled - Patient discharged Performed By: #### L 100.0100, L500.2500 ####[facility] [address] [place], [address] RBC Normal 4.2-5.4 [facility] Comment on above: Result Comment: Canc elled via OM: Order cancelled - Patient discharged Performed By: #### L 100.0100, L500.2500 ####[facility] [address] [place], [address] RDW CV Normal 11.6-14.6 [facility] Comment on above: Result Comment: Canc elled via OM: Order cancelled - Patient discharged Performed By: #### L 100.0100, L500.2500 ####[facility] [address] [place], [address] RDW SD Normal 35.1-43.9 [facility] Comment on above: Result Comment: Canc elled via OM: Order cancelled - Patient discharged Performed By: #### L 100.0100, L500.2500 ####[facility] [address] [place], [address] WBC Normal 4.4-11.0 [facility] Comment on above: Result Comment: Canc elled via OM: Order cancelled - Patient discharged Performed By: #### L 100.0100, L500.2500 ####[facility] [address] [place], [address] Basic Metabolic Profile (BMP )on 02-02-2025 BUN Normal 4-19 [facility] Comment on above: Result Comment: Canc elled via OM: Order cancelled - Patient discharged Performed By: #### L 100.0100, L500.2500 ####[facility] [address] [place], [address] BUN/CRE Normal 10-20 [facility] Comment on above: Result Comment: Canc elled via OM: Order cancelled - Patient discharged Performed By: #### L 100.0100, L500.2500 ####[facility] [address] [place], [address] Calcium Normal 7.6-11.0 [facility] Comment on above: Result Comment: Canc elled via OM: Order cancelled - Patient discharged Performed By: #### L 100.0100, L500.2500 ####[facility] [address] [place], [address] CL Normal 98-108 [facility] Comment on above: Result Comment: Canc elled via OM: Order cancelled - Patient discharged Performed By: #### L 100.0100, L500.2500 ####[facility] [address] [place], [address] CO2 Normal 21.0-32.0 [facility] Comment on above: Result Comment: Canc elled via OM: Order cancelled - Patient discharged Performed By: #### L 100.0100, L500.2500 ####[facility] [address] [place], [address] CREAT,SERUM Normal 0.70-1.20 [facility] Comment on above: Result Comment: Canc elled via OM: Order cancelled - Patient discharged Performed By: #### L 100.0100, L500.2500 ####[facility] [address] [place], [address] eGFR Normal >60 [facility] Comment on above: Result Comment: Canc elled via OM: Order cancelled - Patient discharged Performed By: #### L 100.0100, L500.2500 ####[facility] [address] [place], [address] GAP Normal 5-15 [facility] Comment on above: Result Comment: Canc elled via OM: Order cancelled - Patient discharged Performed By: #### L 100.0100, L500.2500 ####[facility] [address] [place], [address] GLU Normal 70-99 [facility] Comment on above: Result Comment: Canc elled via OM: Order cancelled - Patient discharged Performed By: #### L 100.0100, L500.2500 ####[facility] [address] [place], [address] Potassium Normal 3.3-5.1 [facility] Comment on above: Result Comment: Canc elled via OM: Order cancelled - Patient discharged Performed By: #### L 100.0100, L500.2500 ####[facility] [address] [place], [address] Basic Metabolic Profile (BMP) Normal 133-145 [facility] Comment on above: Result Comment: Canc elled via OM: Order cancelled - Patient discharged Performed By: #### L 100.0100, L500.2500 ####[facility] [address] [place], [address] CBC W/Diff, Automatedon 10-1 0-2024 Absolute Neut Normal 2.0-7.7 [facility] Comment on above: Result Comment: Canc elled via OM: Order cancelled - Patient discharged Performed By: #### L 100.0100, L500.2500 ####[facility] [address] [place], [address] HCT Normal 37-47 [facility] Comment on above: Result Comment: Canc elled via OM: Order cancelled - Patient discharged Performed By: #### L 100.0100, L500.2500 ####[facility] [address] [place], [address] HGB Normal 12.0-15.0 [facility] Comment on above: Result Comment: Canc elled via OM: Order cancelled - Patient discharged Performed By: #### L 100.0100, L500.2500 ####[facility] [address] [place], [address] MCH Normal 27.0-32.0 [facility] Comment on above: Result Comment: Canc elled via OM: Order cancelled - Patient discharged Performed By: #### L 100.0100, L500.2500 ####[facility] [address] [place], [address] MCHC Normal 32-36 [facility] Comment on above: Result Comment: Canc elled via OM: Order cancelled - Patient discharged Performed By: #### L 100.0100, L500.2500 ####[facility] [address] [place], [address] MCV Normal 81-99 [facility] Comment on above: Result Comment: Canc elled via OM: Order cancelled - Patient discharged Performed By: #### L 100.0100, L500.2500 ####[facility] [facility] [address] [place], [address] NEUT% Normal 47-70 [facility] Comment on above: Result Comment: Canc elled via OM: Order cancelled - Patient discharged Performed By: #### L 100.0100, L500.2500 ####[facility] [address] [place], [address] PLT Normal 150-450 [facility] Comment on above: Result Comment: Canc elled via OM: Order cancelled - Patient discharged Performed By: #### L 100.0100, L500.2500 ####[facility] [address] [place], [address] RBC Normal 4.2-5.4 [facility] Comment on above: Result Comment: Canc elled via OM: Order cancelled - Patient discharged Performed By: #### L 100.0100, L500.2500 ####[facility] [address] [place], [address] RDW CV Normal 11.6-14.6 [facility] Comment on above: Result Comment: Canc elled via OM: Order cancelled - Patient discharged Performed By: #### L 100.0100, L500.2500 ####[facility] [address] [place], [address] RDW SD Normal 35.1-43.9 [facility] Comment on above: Result Comment: Canc elled via OM: Order cancelled - Patient discharged Performed By: #### L 100.0100, L500.2500 ####[facility] [address] [place], [address] WBC Normal 4.4-11.0 [facility] Comment on above: Result Comment: Canc elled via OM: Order cancelled - Patient discharged Performed By: #### L 100.0100, L500.2500 ####[facility] [address] [place], [address] Absolute lymphocyte countOrd ered By: Jessica Luo on 02-01-2025 Lymphocytes Auto (Unsp spec) [#/Vol] 1.63 10*3/uL 0.83-4.51 [facility] Anion gap in Serum or Plasma Ordered By: Jessica Luo on 02-01-2025 Anion gap [Moles/Vol] 8 mmol/L 5-15 [facility] Automated lymphocyte count a s percentage of total leukocytesOrdered By: Jessica Luo on 02-01-2025 Lymphocytes/100 WBC Auto (Unsp spec) 18.8 % Low 19-41 [facility] BUN/creatinine ratioOrdered By: Jessicaanna Luo on 02-01-2025 Urea nitrogen/Creatinine [Mass ratio] 25.3 mg/mg High 10- [facility] Basic Metabolic Profile (BMP )on 02-01-2025 BUN/CRE 25.3 RATIO High 10- [facility] Comment on above: Order Comment: .1 Performed By: #### L 100.0100, L501.5200, L503.0106, L506.1001, L500.2500, L501.9985, L501.9520 ####[facility] [address] [place], [address] Calcium [Mass/Vol] 8.6 mg/dL Normal 7.6-11.0 [facility] Comment on above: Order Comment: .1 Performed By: #### L 100.0100, L501.5200, L503.0106, L506.1001, L500.2500, L501.9985, L501.9520 ####[facility] [address] [place], [address] Chloride [Moles/Vol] 91 mmol/L Low 98-108 [facility] Comment on above: Order Comment: . Performed By: #### L 100.0100, L501.5200, L503.0106, L506.1001, L500.2500, L501.9985, L501.9520 ####[facility] [address] [place], [address] CO2 [Moles/Vol] 41.6 mmol/L High 21.0-32.0 [facility] Comment on above: Order Comment: . Performed By: #### L 100.0100, L501.5200, L503.0106, L506.1001, L500.2500, L501.9985, L501.9520 ####[facility] [address] [place], [place], [phone] Creatinine [Mass/Vol] 0.46 mg/dL Low 0.70-1.20 [facility] Comment on above: Order Comment: . Performed By: #### L 100.0100, L501.5200, L503.0106, L506.1001, L500.2500, L501.9985, L501.9520 ####[facility] [address] [place], [place], [phone] [phone] Normal 5-15 [facility] Comment on above: Order Comment: . Performed By: #### L 100.0100, L501.5200, L503.0106, L506.1001, L500.2500, L501.9985, L501.9520 ####[facility] [address] [place], [place], [phone] GFR/1.73 sq M.predicted among non-blacks MDRD (S/P/Bld) [Vol rate/Area] 103 mL/min/{1.73_m2} Normal >60 [facility] Comment on above: Order Comment: Result Comment: mL/m in/1.73m2 CKD-EPI Creatinine Equation (2020) Performed By: #### L 100.0100, L501.5200, L503.0106, L506.1001, L500.2500, L501.9985, L501.9520 ####[facility] [address] [place], [address] Glucose [Mass/Vol] 79 mg/dL Normal 70-99 [facility] Comment on above: Order Comment: Performed By: #### L 100.0100, L501.5200, L503.0106, L506.1001, L500.2500, L501.9985, L501.9520 ####[facility] [address] [place], [address] Potassium [Moles/Vol] 3.5 mmol/L Normal 3.3-5.1 [facility] Comment on above: Order Comment: Performed By: #### L 100.0100, L501.5200, L503.0106, L506.1001, L500.2500, L501.9985, L501.9520 ####[facility] [address] [place], [address] Sodium [Moles/Vol] 140 mmol/L Normal 133-145 [facility] Comment on above: Order Comment: . Performed By: #### L 100.0100, L501.5200, L503.0106, L506.1001, L500.2500, L501.9985, L501.9520 ####[facility] [address] [place], [address] Urea nitrogen [Mass/Vol] 12 mg/dL Normal 4-19 [facility] Comment on above: Order Comment: . Performed By: #### L 100.0100, L501.5200, L503.0106, L506.1001, L500.2500, L501.9985, L501.9520 ####[facility] [address] [place], [address] BUN Normal 4-19 [facility] Comment on above: Result Comment: Canc elled via OM: Order cancelled - Patient discharged Performed By: #### L 500.2500, L100.0100 ####[facility] [address] [place], [address] BUN/CRE Normal 10-20 [facility] Comment on above: Result Comment: Canc elled via OM: Order cancelled - Patient discharged Performed By: #### L 500.2500, L100.0100 ####[facility] [address] [place], [address] Calcium Normal 7.6-11.0 [facility] Comment on above: Result Comment: Canc elled via OM: Order cancelled - Patient discharged Performed By: #### L 500.2500, L100.0100 ####[facility] [address] [place], [address] CL Normal 98-108 [facility] Comment on above: Result Comment: Canc elled via OM: Order cancelled - Patient discharged Performed By: #### L 500.2500, L100.0100 ####[facility] [address] [place], [address] CO2 Normal 21.0-32.0 [facility] Comment on above: Result Comment: Canc elled via OM: Order cancelled - Patient discharged Performed By: #### L 500.2500, L100.0100 ####[facility] [address] [place], [address] CREAT,SERUM Normal 0.70-1.20 [facility] Comment on above: Result Comment: Canc elled via OM: Order cancelled - Patient discharged Performed By: #### L 500.2500, L100.0100 ####[facility] [address] [place], [address] eGFR Normal >60 [facility] Comment on above: Result Comment: Canc elled via OM: Order cancelled - Patient discharged Performed By: #### L 500.2500, L100.0100 ####[facility] [address] [place], [address] GAP Normal 5-15 [facility] Comment on above: Result Comment: Canc elled via OM: Order cancelled - Patient discharged Performed By: #### L 500.2500, L100.0100 ####[facility] [address] [place], [address] GLU Normal 70-99 [facility] Comment on above: Result Comment: Canc elled via OM: Order cancelled - Patient discharged Performed By: #### L 500.2500, L100.0100 ####[facility] [address] [place], [address] Potassium Normal 3.3-5.1 [facility] Comment on above: Result Comment: Canc elled via OM: Order cancelled - Patient discharged Performed By: #### L 500.2500, L100.0100 ####[facility] [address] [place], [address] Basic Metabolic Profile (BMP) Normal 133-145 [facility] Comment on above: Result Comment: Canc elled via OM: Order cancelled - Patient discharged Performed By: #### L 500.2500, L100.0100 ####[facility] [address] [place], [address] Basophil percentageOrdered B y: Jessica Luo on 02-01-2025 Basophils/100 WBC (Bld) 0.1 % 0-1 [facility] CBC W/Diff, Automatedon 10-0 Absolute Lymph 1.63 X10 3/uL Normal 0.83-4.51 [facility] Comment on above: Order Comment: 209. Performed By: #### L 100.0100, L501.5200, L503.0106, L506.1001, L500.2500, L501.9985, L501.9520 ####[facility] [address] [place], [address] Absolute Neut 6.1 X10 3/uL Normal 2.0-7.7 [facility] Comment on above: Order Comment: . Performed By: #### L 100.0100, L501.5200, L503.0106, L506.1001, L500.2500, L501.9985, L501.9520 ####[facility] [address] [place], [address] Basophils/100 WBC (Bld) 0.1 % Normal 0-1 [facility] Comment on above: Order Comment: Performed By: #### L 100.0100, L501.5200, L503.0106, L506.1001, L500.2500, L501.9985, L501.9520 ####[facility] [address] [place], [address] Eosinophils/100 WBC (Bld) 0.3 % Normal 0-5 [facility] Comment on above: Order Comment: Performed By: #### L 100.0100, L501.5200, L503.0106, L506.1001, L500.2500, L501.9985, L501.9520 ####[facility] [address] [place], [address] Erythrocyte distribution width (RBC) [Ratio] 15.3 % High 11.6-14.6 [facility] Comment on above: Order Comment: . Performed By: #### L 100.0100, L501.5200, L503.0106, L506.1001, L500.2500, L501.9985, L501.9520 ####[facility] [address] [place], [address] Hematocrit (Bld) [Volume fraction] 32.5 % Low 37-47 [facility] Comment on above: Order Comment: . Performed By: #### L 100.0100, L501.5200, L503.0106, L506.1001, L500.2500, L501.9985, L501.9520 ####[facility] [address] [place], [address] Hemoglobin (Bld) [Mass/Vol] 9.6 g/dL Low 12.0-15.0 [facility] Comment on above: Order Comment: . Performed By: #### L 100.0100, L501.5200, L503.0106, L506.1001, L500.2500, L501.9985, L501.9520 ####[facility] [address] [place], [address] IG% 0.800 Normal 0.0-0.9 [facility] Comment on above: Order Comment: . Result Comment: IG% - Immature Granulocytes (promyelocytes, myelocytes andmetamyelocytes) > 1% indicates that a LEFT SHIFT is Present. Performed By: #### L 100.0100, L501.5200, L503.0106, L506.1001, L500.2500, L501.9985, L501.9520 ####[facility] [address] [place], [address] Lymphocytes/100 WBC (Bld) 18.8 % Low 19-41 [facility] Comment on above: Order Comment: . Performed By: #### L 100.0100, L501.5200, L503.0106, L506.1001, L500.2500, L501.9985, L501.9520 ####[facility] [address] [place], [address] MCH (RBC) [Entitic mass] 24.2 pg Low 27.0-32.0 [facility] Comment on above: Order Comment: . Performed By: #### L 100.0100, L501.5200, L503.0106, L506.1001, L500.2500, L501.9985, L501.9520 ####[facility] [address] [place], [address] MCHC (RBC) [Mass/Vol] 29.5 g/dL Low 32-36 [facility] Comment on above: Order Comment: . Performed By: #### L 100.0100, L501.5200, L503.0106, L506.1001, L500.2500, L501.9985, L501.9520 ####[facility] [address] [place], [address] MCV (RBC) [Entitic vol] 81.9 fL Normal 81-99 [facility] Comment on above: Order Comment: . Performed By: #### L 100.0100, L501.5200, L503.0106, L506.1001, L500.2500, L501.9985, L501.9520 ####[facility] [address] [place], [address] Monocytes/100 WBC (Bld) 9.7 % Normal 0-10 [facility] Comment on above: Order Comment: . Performed By: #### L 100.0100, L501.5200, L503.0106, L506.1001, L500.2500, L501.9985, L501.9520 ####[facility] [address] [place], [address] Neutrophils/100 WBC (Bld) 70.3 % High 47-70 [facility] Comment on above: Order Comment: . Performed By: #### L 100.0100, L501.5200, L503.0106, L506.1001, L500.2500, L501.9985, L501.9520 ####[facility] [address] [place], [address] Nucleated RBC (Bld) [#/Vol] 0 10*3/uL Normal 0-5 [facility] Comment on above: Order Comment: . Performed By: #### L 100.0100, L501.5200, L503.0106, L506.1001, L500.2500, L501.9985, L501.9520 ####[facility] [address] [place], [address] Platelet mean volume (Bld) [Entitic vol] 12.0 fL Normal 6.2-12.0 [facility] Comment on above: Order Comment: . Performed By: #### L 100.0100, L501.5200, L503.0106, L506.1001, L500.2500, L501.9985, L501.9520 ####[facility] [address] [place], [address] Platelets (Bld) [#/Vol] 224 10*3/uL Normal 150-450 [facility] Comment on above: Order Comment: . Performed By: #### L 100.0100, L501.5200, L503.0106, L506.1001, L500.2500, L501.9985, L501.9520 ####[facility] [address] [place], [address] RBC (Bld) [#/Vol] 3.97 10*6/uL Low 4.2-5.4 [facility] Comment on above: Order Comment: . Performed By: #### L 100.0100, L501.5200, L503.0106, L506.1001, L500.2500, L501.9985, L501.9520 ####[facility] [address] [place], [address] RDW SD 45.7 fl High 35.1-43.9 [facility] Comment on above: Order Comment: 209.1 Performed By: #### L 100.0100, L501.5200, L503.0106, L506.1001, L500.2500, L501.9985, L501.9520 ####[facility] [address] [place], [address] WBC (Bld) [#/Vol] 8.7 10*3/uL Normal 4.4-11.0 [facility] Comment on above: Order Comment: .1 Performed By: #### L 100.0100, L501.5200, L503.0106, L506.1001, L500.2500, L501.9985, L501.9520 ####[facility] [address] [place], [address] Absolute Neut Normal 2.0-7.7 [facility] Comment on above: Result Comment: Canc elled via OM: Order cancelled - Patient discharged Performed By: #### L 500.2500, L100.0100 ####[facility] [address] [place], [address] HCT Normal 37-47 [facility] Comment on above: Result Comment: Canc elled via OM: Order cancelled - Patient discharged Performed By: #### L 500.2500, L100.0100 ####[facility] [address] [place], [address] HGB Normal 12.0-15.0 [facility] Comment on above: Result Comment: Canc elled via OM: Order cancelled - Patient discharged Performed By: #### L 500.2500, L100.0100 ####[facility] [address] [place], [address] MCH Normal 27.0-32.0 [facility] Comment on above: Result Comment: Canc elled via OM: Order cancelled - Patient discharged Performed By: #### L 500.2500, L100.0100 ####[facility] [address] [place], [address] MCHC Normal 32-36 [facility] Comment on above: Result Comment: Canc elled via OM: Order cancelled - Patient discharged Performed By: #### L 500.2500, L100.0100 ####[facility] [address] [place], [address] MCV Normal 81-99 [facility] Comment on above: Result Comment: Canc elled via OM: Order cancelled - Patient discharged Performed By: #### L 500.2500, L100.0100 ####[facility] [address] [place], [address] NEUT% Normal 47-70 [facility] Comment on above: Result Comment: Canc elled via OM: Order cancelled - Patient discharged Performed By: #### L 500.2500, L100.0100 ####[facility] [address] [place], [address] PLT Normal 150-450 [facility] Comment on above: Result Comment: Canc elled via OM: Order cancelled - Patient discharged Performed By: #### L 500.2500, L100.0100 ####[facility] [address] [place], [address] RBC Normal 4.2-5.4 [facility] Comment on above: Result Comment: Canc elled via OM: Order cancelled - Patient discharged Performed By: #### L 500.2500, L100.0100 ####[facility] [address] [place], [address] RDW CV Normal 11.6-14.6 [facility] Comment on above: Result Comment: Canc elled via OM: Order cancelled - Patient discharged Performed By: #### L 500.2500, L100.0100 ####[facility] [address] [place], [address] RDW SD Normal 35.1-43.9 [facility] Comment on above: Result Comment: Canc elled via OM: Order cancelled - Patient discharged Performed By: #### L 500.2500, L100.0100 ####[facility] [address] [place], [address] WBC Normal 4.4-11.0 [facility] Comment on above: Result Comment: Canc elled via OM: Order cancelled - Patient discharged Performed By: #### L 500.2500, L100.0100 ####[facility] [address] [place], [address] Carbon dioxide, total [Moles /volume] in Central venous bloodOrdered By: Jessica Luo on 02-01-2025 CO2 [Moles/Vol] 41.6 mmol/L High 21.0-32.0 [facility] Chloride assayOrdered By: Ollie Luo on 02-01-2025 Chloride [Moles/Vol] 91 mmol/L Low 98-108 [facility] Eosinophil percentageOrdered By: Jessica Luo on 02-01-2025 Eosinophils/100 WBC (Bld) 0.3 % 0-5 [facility] Erythrocyte distribution wid th ratioOrdered By: Jessica Luo on 02-01-2025 Erythrocyte distribution width (RBC) [Ratio] 15.3 % High 11.6-14.6 [facility] Erythrocyte distribution wid th standard deviationOrdered By: Jessica Luo on 02-01-2025 Erythrocyte distribution width (RBC) [Ratio] 45.7 fl High 35.1-43.9 [facility] Glomerular filtration rate ( GFR) estimation/1.73 sq m using serum, plasma, or whole bOrdered By: Jessica Luo on 02-01-2025 GFR/1.73 sq M.predicted among non-blacks MDRD (S/P/Bld) [Vol rate/Area] 103 mL/min/{1.73_m2} >60 [facility] Hematocrit Auto (Bld) [Volum e fraction]Ordered By: Jessica Luo on 02-01-2025 Hematocrit (Bld) [Volume fraction] 32.5 % Low 37-47 [facility] Hemoglobin A1con 02-01-2025 HbA1c (Bld) [Mass fraction] 5.4 % Normal <=5.6 [facility] Comment on above: Order Comment: 209.1 Result Comment: Norm al < 5.7 % Prediabetic 5.7 - 6.4 % Diabetic >or= 6.5 % Please note range changes. Performed By: #### L 100.0100, L501.5200, L503.0106, L506.1001, L500.2500, L501.9985, L501.9520 ####[facility] [address] [place], [address] Hemoglobin A1c percentageOrd ered By: Jessica Luo on 02-01-2025 HbA1c (Bld) [Mass fraction] 5.4 % <5.7 [facility] Hemoglobin measurementOrdere d By: Jessica Luo on 02-01-2025 Hemoglobin (Bld) [Mass/Vol] 9.6 g/dL Low 12.0-15.0 [facility] Immature granulocytes/100 WB C Auto (Bld)Ordered By: Jessica Luo on 02-01-2025 Immature granulocytes/100 WBC (Bld) 0.800 % 0.0-0.9 [facility] MCV (mean corpuscular volume ) determinationOrdered By: Jessica Luo on 02-01-2025 MCV (RBC) [Entitic vol] 81.9 fL 81-99 [facility] Magnesiumon 02-01-2025 Magnesium [Mass/Vol] 2.1 mg/dL Normal 1.5-2.2 [facility] Comment on above: Order Comment: 209.1 Performed By: #### L 100.0100, L501.5200, L503.0106, L506.1001, L500.2500, L501.9985, L501.9520 ####[facility] [address] [place], [address] Magnesium measurement (mass/ volume)Ordered By: Jessica Luo on 02-01-2025 Magnesium (Unsp spec) [Mass/Vol] 2.1 mg/dL 1.5-2.2 [facility] Mean corpuscular hemoglobin (MCH) determinationOrdered By: Jessica Luo on 02-01-2025 MCH (RBC) [Entitic mass] 24.2 pg Low 27.0-32.0 [facility] Monocyte percentageOrdered B y: Jessica Luo on 02-01-2025 Monocytes/100 WBC (Bld) 9.7 % 0-10 [facility] Neutrophil percentageOrdered By: Jessica Luo on 02-01-2025 Neutrophils/100 WBC (Bld) 70.3 % High 47-70 [facility] Platelet countOrdered By: Ollie Luo on 02-01-2025 Platelets (Bld) [#/Vol] 224 10*3/uL 150-450 [facility] Potassium measurement (mass/ volume)Ordered By: Jessica Luo on 02-01-2025 Potassium (Unsp spec) [Mass/Vol] 3.5 mmol/L 3.3-5.1 [facility] RBC Auto (Bld) [#/Vol]Ordere d By: Jessica Luo on 02-01-2025 RBC (Bld) [#/Vol] 3.97 10*6/uL Low 4.2-5.4 [facility] Serum creatinine measurement (mass/volume)Ordered By: Jessica Luo on 02-01-2025 Creatinine [Mass/Vol] 0.46 mg/dL Low 0.70-1.20 [facility] Serum glucose measurement (m ass/volume)Ordered By: Jessica Luo on 02-01-2025 Glucose [Mass/Vol] 79 mg/dL 70-99 [facility] Serum or plasma calcium kadi urement (mass/volume)Ordered By: Jessica Luo on 02-01-2025 Calcium [Mass/Vol] 8.6 mg/dL 7.6-11.0 [facility] Serum or plasma urea nitroge n measurement (mass/volume)Ordered By: Jessica Luo on 02-01-2025 Urea nitrogen [Mass/Vol] 12 mg/dL 4-19 [facility] Sodium levelOrdered By: Ang Luo on 02-01-2025 Sodium [Moles/Vol] 140 mmol/L 133-145 [facility] TSH DL <= 0.005 mIU/L QnOrde red By: Jessica Luo on 02-01-2025 TSH Qn 1.330 uIU/mL 0.300-4.200 [facility] Thyroid Stim Hormone (TSH)on 02-01-2025 TSH 1.330 uIU/mL Normal 0.300-4.200 [facility] Comment on above: Order Comment: 209.1 Performed By: #### L 100.0100, L501.5200, L503.0106, L506.1001, L500.2500, L501.9985, L501.9520 ####[facility] [address] [place], [place], [id number] Vitamin B12on 02-01-2025 Cobalamin (Vitamin B12) [Mass/Vol] 286 pg/mL Normal 180-914 [facility] Comment on above: Order Comment: 209.1 Performed By: #### L 100.0100, L501.5200, L503.0106, L506.1001, L500.2500, L501.9985, L501.9520 ####[facility] [address] [facility] [place], [place], [address] Vitamin B12 ser/plasOrdered By: Jessica Luo on 02-01-2025 Cobalamin (Vitamin B12) [Mass/Vol] 286 pg/mL 180-914 [facility] Vitamin D,25 Hydroxyon 02-01 Vitamin D 25-OH 32.3 ng/mL Normal 30-100 [facility] Comment on above: Order Comment: 209.1 Result Comment: Marixa min D StatusDeficiency: <20 ng/mL (50nmol/L)Insufficiency: 20-30 ng/mL (50-75 nmol/L)Sufficiency: 30-100 ng/mL (75-250 nmol/L)Toxicity: >100 ng/mL (>250 nmol/L) Performed By: #### L 100.0100, L501.5200, L503.0106, L506.1001, L500.2500, L501.9985, L501.9520 ####[facility] [address] [place], [address] White blood cell (WBC) count Ordered By: Jessica Luo on 02-01-2025 WBC (Bld) [#/Vol] 8.7 10*3/uL 4.4-11.0 [facility] 36on 01-31-2025 36 Tried to contact to follow-up on dental plan, unable to leave message due to voicemail full Normal [facility] Absolute lymphocyte countOrd ered By: Debby Gu on 01-31-2025 Lymphocytes Auto (Unsp spec) [#/Vol] 1.44 10*3/uL 0.83-4.51 [facility] Anion gap in Serum or Plasma Ordered By: Debby Gu on 01-31-2025 Anion gap [Moles/Vol] 6 mmol/L 5-15 [facility] Automated lymphocyte count a s percentage of total leukocytesOrdered By: Debby Gu on 01-31-2025 Lymphocytes/100 WBC Auto (Unsp spec) 16.1 % Low 19-41 [facility] BUN/creatinine ratioOrdered By: Debby Gu on 01-31-2025 Urea nitrogen/Creatinine [Mass ratio] 29.6 mg/mg High 10- [facility] Basic Metabolic Profile (BMP )on 01-31-2025 BUN/CRE 29.6 RATIO High 02-12 [facility] Comment on above: Performed By: #### L 500.2500, L100.0100 ####[facility] [address] [place], [address] Calcium [Mass/Vol] 8.8 mg/dL Normal 7.6-11.0 [facility] Comment on above: Performed By: #### L 500.2500, L100.0100 ####[facility] [address] [place], [address] Chloride [Moles/Vol] 92 mmol/L Low 98-108 [facility] Comment on above: Performed By: #### L 500.2500, L100.0100 ####[facility] [address] [place], [address] CO2 [Moles/Vol] 44.1 mmol/L High 21.0-32.0 [facility] Comment on above: Performed By: #### L 500.2500, L100.0100 ####[facility] [address] [place], [address] Creatinine [Mass/Vol] 0.48 mg/dL Low 0.70-1.20 [facility] Comment on above: Performed By: #### L 500.2500, L100.0100 ####[facility] [address] [place], [address] ECRCL 62.17 ml/min Normal 50-250 [facility] Comment on above: Performed By: #### L 500.2500, L100.0100 ####[facility] [address] [place], [address] GAP 6 Normal 5-15 [facility] Comment on above: Performed By: #### L 500.2500, L100.0100 ####[facility] [address] [place], [address] GFR/1.73 sq M.predicted among non-blacks MDRD (S/P/Bld) [Vol rate/Area] 103 mL/min/{1.73_m2} Normal >60 [facility] Comment on above: Result Comment: mL/m in/1.73m2 CKD-EPI Creatinine Equation (2020) Performed By: #### L 500.2500, L100.0100 ####[facility] [address] [place], [address] Glucose [Mass/Vol] 98 mg/dL Normal 70-99 [facility] Comment on above: Performed By: #### L 500.2500, L100.0100 ####[facility] [address] [place], [address] Potassium [Moles/Vol] 3.3 mmol/L Normal 3.3-5.1 [facility] Comment on above: Performed By: #### L 500.2500, L100.0100 ####[facility] [address] [place], [address] Sodium [Moles/Vol] 141 mmol/L Normal 133-145 [facility] Comment on above: Performed By: #### L 500.2500, L100.0100 ####[facility] [address] [place], [address] Urea nitrogen [Mass/Vol] 14 mg/dL Normal 4-19 [facility] Comment on above: Performed By: #### L 500.2500, L100.0100 ####[facility] [address] [place], [address] Basophil percentageOrdered B y: Debbyrayne Gu on 01-31-2025 Basophils/100 WBC (Bld) 0.1 % 0-1 [facility] CBC W/Diff, Automatedon 10-0 Absolute Lymph 1.44 X10 3/uL Normal 0.83-4.51 [facility] Comment on above: Performed By: #### L 500.2500, L100.0100 ####[facility] [address] [place], [address] Absolute Neut 6.4 X10 3/uL Normal 2.0-7.7 [facility] Comment on above: Performed By: #### L 500.2500, L100.0100 ####[facility] [address] [place], [address] Basophils/100 WBC (Bld) 0.1 % Normal 0-1 [facility] Comment on above: Performed By: #### L 500.2500, L100.0100 ####[facility] [address] [place], [address] Eosinophils/100 WBC (Bld) 0.2 % Normal 0-5 [facility] Comment on above: Performed By: #### L 500.2500, L100.0100 ####[facility] [address] [place], [address] Erythrocyte distribution width (RBC) [Ratio] 15.1 % High 11.6-14.6 [facility] Comment on above: Performed By: #### L 500.2500, L100.0100 ####[facility] [address] [place], [address] Hematocrit (Bld) [Volume fraction] 31.4 % Low 37-47 [facility] Comment on above: Performed By: #### L 500.2500, L100.0100 ####[facility] [address] [place], [address] Hemoglobin (Bld) [Mass/Vol] 9.5 g/dL Low 12.0-15.0 [facility] Comment on above: Performed By: #### L 500.2500, L100.0100 ####[facility] [address] [place], [address] IG% 0.700 Normal 0.0-0.9 [facility] Comment on above: Result Comment: IG% - Immature Granulocytes (promyelocytes, myelocytes andmetamyelocytes) > 1% indicates that a LEFT SHIFT is Present. Performed By: #### L 500.2500, L100.0100 ####[facility] [address] [place], [address] Lymphocytes/100 WBC (Bld) 16.1 % Low 19-41 [facility] Comment on above: Performed By: #### L 500.2500, L100.0100 ####[facility] [address] [place], [address] MCH (RBC) [Entitic mass] 24.5 pg Low 27.0-32.0 [facility] Comment on above: Performed By: #### L 500.2500, L100.0100 ####[facility] [address] [place], [address] MCHC (RBC) [Mass/Vol] 30.3 g/dL Low 32-36 [facility] Comment on above: Performed By: #### L 500.2500, L100.0100 ####[facility] [address] [place], [address] MCV (RBC) [Entitic vol] 81.1 fL Normal 81-99 [facility] Comment on above: Performed By: #### L 500.2500, L100.0100 ####[facility] [address] [place], [address] Monocytes/100 WBC (Bld) 11.7 % High 0-10 [facility] Comment on above: Performed By: #### L 500.2500, L100.0100 ####[facility] [address] [place], [address] Neutrophils/100 WBC (Bld) 71.2 % High 47-70 [facility] Comment on above: Performed By: #### L 500.2500, L100.0100 ####[facility] [address] [place], [address] Nucleated RBC (Bld) [#/Vol] 0 10*3/uL Normal 0-5 [facility] Comment on above: Performed By: #### L 500.2500, L100.0100 ####[facility] [address] [place], [address] Platelet mean volume (Bld) [Entitic vol] 11.3 fL Normal 6.2-12.0 [facility] Comment on above: Performed By: #### L 500.2500, L100.0100 ####[facility] [address] [place], [address] Platelets (Bld) [#/Vol] 204 10*3/uL Normal 150-450 [facility] Comment on above: Performed By: #### L 500.2500, L100.0100 ####[facility] [address] [place], [address] RBC (Bld) [#/Vol] 3.87 10*6/uL Low 4.2-5.4 [facility] Comment on above: Performed By: #### L 500.2500, L100.0100 ####[facility] [address] [place], [address] RDW SD 44.4 fl High 35.1-43.9 [facility] Comment on above: Performed By: #### L 500.2500, L100.0100 ####[facility] [address] [place], [address] WBC (Bld) [#/Vol] 9.0 10*3/uL Normal 4.4-11.0 [facility] Comment on above: Performed By: #### L 500.2500, L100.0100 ####[facility] [address] [place], [address] Carbon dioxide, total [Moles /volume] in Central venous bloodOrdered By: Debby Gu on 01-31-2025 CO2 [Moles/Vol] 44.1 mmol/L High 21.0-32.0 [facility] Chloride assayOrdered By: Sadiq Gu on 01-31-2025 Chloride [Moles/Vol] 92 mmol/L Low 98-108 [facility] Eosinophil percentageOrdered By: Debby Gu on 10-08-2025 Eosinophils/100 WBC (Bld) 0.2 % 0-5 [facility] Erythrocyte distribution wid th ratioOrdered By: Debby Gu on 01-31-2025 Erythrocyte distribution width (RBC) [Ratio] 15.1 % High 11.6-14.6 [facility] Erythrocyte distribution wid th standard deviationOrdered By: Debby Gu on 01-31-2025 Erythrocyte distribution width (RBC) [Ratio] 44.4 fl High 35.1-43.9 [facility] Glomerular filtration rate ( GFR) estimation/1.73 sq m using serum, plasma, or whole bOrdered By: Debby Gu on 01-31-2025 GFR/1.73 sq M.predicted among non-blacks MDRD (S/P/Bld) [Vol rate/Area] 103 mL/min/{1.73_m2} >60 [facility] Hematocrit Auto (Bld) [Volum e fraction]Ordered By: Debby Gu on 01-31-2025 Hematocrit (Bld) [Volume fraction] 31.4 % Low 37-47 [facility] Hemoglobin measurementOrdere d By: Debby Gu on 01-31-2025 Hemoglobin (Bld) [Mass/Vol] 9.5 g/dL Low 12.0-15.0 [facility] Immature granulocytes/100 WB C Auto (Bld)Ordered By: Debby Gu on 01-31-2025 Immature granulocytes/100 WBC (Bld) 0.700 % 0.0-0.9 [facility] MCV (mean corpuscular volume ) determinationOrdered By: Debby Gu on 01-31-2025 MCV (RBC) [Entitic vol] 81.1 fL 81-99 [facility] Mean corpuscular hemoglobin (MCH) determinationOrdered By: Debby Gu on 01-31-2025 MCH (RBC) [Entitic mass] 24.5 pg Low 27.0-32.0 [facility] Monocyte percentageOrdered B y: Debby Gu on 01-31-2025 Monocytes/100 WBC (Bld) 11.7 % High 0-10 [facility] Neutrophil percentageOrdered By: Debby Gu on 01-31-2025 Neutrophils/100 WBC (Bld) 71.2 % High 47-70 [facility] Platelet countOrdered By: Sadiq Gu on 01-31-2025 Platelets (Bld) [#/Vol] 204 10*3/uL 150-450 [facility] Potassium measurement (mass/ volume)Ordered By: Debby Gu on 01-31-2025 Potassium (Unsp spec) [Mass/Vol] 3.3 mmol/L 3.3-5.1 [facility] RBC Auto (Bld) [#/Vol]Ordere d By: Debby Gu on 01-31-2025 RBC (Bld) [#/Vol] 3.87 10*6/uL Low 4.2-5.4 [facility] Serum creatinine measurement (mass/volume)Ordered By: Debby Gu on 01-31-2025 Creatinine [Mass/Vol] 0.48 mg/dL Low 0.70-1.20 [facility] Serum glucose measurement (m ass/volume)Ordered By: Debby Gu on 01-31-2025 Glucose [Mass/Vol] 98 mg/dL 70-99 [facility] Serum or plasma calcium kadi urement (mass/volume)Ordered By: Debby Gu on 01-31-2025 Calcium [Mass/Vol] 8.8 mg/dL 7.6-11.0 [facility] Serum or plasma urea nitroge n measurement (mass/volume)Ordered By: Debby Gu on 01-31-2025 Urea nitrogen [Mass/Vol] 14 mg/dL 4-19 [facility] Sodium levelOrdered By: Art Gu on 01-31-2025 Sodium [Moles/Vol] 141 mmol/L 133-145 [facility] White blood cell (WBC) count Ordered By: Debby Gu on 01-31-2025 WBC (Bld) [#/Vol] 9.0 10*3/uL 4.4-11.0 [facility] Basic Metabolic Profile (BMP )on 01-30-2025 BUN/CRE 30.6 RATIO High 10-20 [facility] Comment on above: Performed By: #### L 500.2500, L100.0100 ####[facility] [address] [place], [address] Calcium [Mass/Vol] 8.6 mg/dL Normal 7.6-11.0 [facility] Comment on above: Performed By: #### L 500.2500, L100.0100 ####[facility] [address] [place], [address] Chloride [Moles/Vol] 89 mmol/L Low 98-108 [facility] Comment on above: Performed By: #### L 500.2500, L100.0100 ####[facility] [address], [address] CO2 [Moles/Vol] 43.5 mmol/L High 21.0-32.0 [facility] Comment on above: Performed By: #### L 500.2500, L100.0100 ####[facility] [address] [place], [address] Creatinine [Mass/Vol] 0.59 mg/dL Low 0.70-1.20 [facility] Comment on above: Performed By: #### L 500.2500, L100.0100 ####[facility] [address] [place], [address] ECRCL 63.85 ml/min Normal 50-250 [facility] Comment on above: Performed By: #### L 500.2500, L100.0100 ####[facility] [address] [place], [address] GAP 9 Normal 5-15 [facility] Comment on above: Performed By: #### L 500.2500, L100.0100 ####[facility] [address] [place], [address] GFR/1.73 sq M.predicted among non-blacks MDRD (S/P/Bld) [Vol rate/Area] 97 mL/min/{1.73_m2} Normal >60 [facility] Comment on above: Result Comment: mL/m in/1.73m2 CKD-EPI Creatinine Equation (2020) Performed By: #### L 500.2500, L100.0100 ####[facility] [address] [place], [address] Glucose [Mass/Vol] 179 mg/dL High 70-99 [facility] Comment on above: Performed By: #### L 500.2500, L100.0100 ####[facility] [address] [place], [address] Potassium [Moles/Vol] 3.2 mmol/L Low 3.3-5.1 [facility] Comment on above: Performed By: #### L 500.2500, L100.0100 ####[facility] [address] [place], [address] Sodium [Moles/Vol] 141 mmol/L Normal 133-145 [facility] Comment on above: Performed By: #### L 500.2500, L100.0100 ####[facility] [address] [place], [address] Urea nitrogen [Mass/Vol] 18 mg/dL Normal 4-19 [facility] Comment on above: Performed By: #### L 500.2500, L100.0100 ####[facility] [address] [place], [address] CBC W/Diff, Automatedon 10-0 7-2025 Absolute Lymph 0.45 X10 3/uL Low 0.83-4.51 [facility] Comment on above: Performed By: #### L 500.2500, L100.0100 ####[facility] [address] [place], [address] Absolute Neut 5.3 X10 3/uL Normal 2.0-7.7 [facility] Comment on above: Performed By: #### L 500.2500, L100.0100 ####[facility] [address] [place], [address] Basophils/100 WBC (Bld) 0.2 % Normal 0-1 [facility] Comment on above: Performed By: #### L 500.2500, L100.0100 ####[facility] [address] [place], [address] Eosinophils/100 WBC (Bld) 0.0 % Normal 0-5 [facility] Comment on above: Performed By: #### L 500.2500, L100.0100 ####[facility] [address] [place], [address] Erythrocyte distribution width (RBC) [Ratio] 14.8 % High 11.6-14.6 [facility] Comment on above: Performed By: #### L 500.2500, L100.0100 ####[facility] [address] [place], [address] Hematocrit (Bld) [Volume fraction] 29.2 % Low 37-47 [facility] Comment on above: Performed By: #### L 500.2500, L100.0100 ####[facility] [address] [place], [address] Hemoglobin (Bld) [Mass/Vol] 8.9 g/dL Low 12.0-15.0 [facility] Comment on above: Performed By: #### L 500.2500, L100.0100 ####[facility] [address] [place], [address] IG% 0.800 Normal 0.0-0.9 [facility] Comment on above: Result Comment: IG% - Immature Granulocytes (promyelocytes, myelocytes andmetamyelocytes) > 1% indicates that a LEFT SHIFT is Present. Performed By: #### L 500.2500, L100.0100 ####[facility] [address] [place], [address] Lymphocytes/100 WBC (Bld) 7.3 % Low 19-41 [facility] Comment on above: Performed By: #### L 500.2500, L100.0100 ####[facility] [address] [place], [address] MCH (RBC) [Entitic mass] 24.5 pg Low 27.0-32.0 [facility] Comment on above: Performed By: #### L 500.2500, L100.0100 ####[facility] [address] [place], [address] MCHC (RBC) [Mass/Vol] 30.5 g/dL Low 32-36 [facility] Comment on above: Performed By: #### L 500.2500, L100.0100 ####[facility] [address] [place], [address] MCV (RBC) [Entitic vol] 80.2 fL Low 81-99 [facility] Comment on above: Performed By: #### L 500.2500, L100.0100 ####[facility] [address] [place], [address] Monocytes/100 WBC (Bld) 4.7 % Normal 0-10 [facility] Comment on above: Performed By: #### L 500.2500, L100.0100 ####[facility] [address] [place], [address] Neutrophils/100 WBC (Bld) 87.0 % High 47-70 [facility] Comment on above: Performed By: #### L 500.2500, L100.0100 ####[facility] [address] [place], [address] Nucleated RBC (Bld) [#/Vol] 0 10*3/uL Normal 0-5 [facility] Comment on above: Performed By: #### L 500.2500, L100.0100 ####[facility] [address] [place], [address] Platelet mean volume (Bld) [Entitic vol] 12.0 fL Normal 6.2-12.0 [facility] Comment on above: Performed By: #### L 500.2500, L100.0100 ####[facility] [address] [place], [address] Platelets (Bld) [#/Vol] 195 10*3/uL Normal 150-450 [facility] Comment on above: Performed By: #### L 500.2500, L100.0100 ####[facility] [address] [place], [address] RBC (Bld) [#/Vol] 3.64 10*6/uL Low 4.2-5.4 [facility] Comment on above: Performed By: #### L 500.2500, L100.0100 ####[facility] [address] [place], [address] RDW SD 43.3 fl Normal 35.1-43.9 [facility] Comment on above: Performed By: #### L 500.2500, L100.0100 ####[facility] [address] [place], [address] WBC (Bld) [#/Vol] 6.1 10*3/uL Normal 4.4-11.0 [facility] Comment on above: Performed By: #### L 500.2500, L100.0100 ####[facility] [address] [place], [address] Basic Metabolic Profile (BMP )on 01-29-2025 BUN/CRE 27.6 RATIO High 10-20 [facility] Comment on above: Performed By: #### L 500.2500, L100.0100 ####[facility] [address] [place], [address] Calcium [Mass/Vol] 8.5 mg/dL Normal 7.6-11.0 [facility] Comment on above: Performed By: #### L 500.2500, L100.0100 ####[facility] [address] [place], [address] Chloride [Moles/Vol] 86 mmol/L Low 98-108 [facility] Comment on above: Performed By: #### L 500.2500, L100.0100 ####[facility] [address] [place], [address] CO2 [Moles/Vol] 43.4 mmol/L High 21.0-32.0 [facility] Comment on above: Performed By: #### L 500.2500, L100.0100 ####[facility] [address] [place], [address] Creatinine [Mass/Vol] 0.56 mg/dL Low 0.70-1.20 [facility] Comment on above: Performed By: #### L 500.2500, L100.0100 ####[facility] [address] [place], [address] ECRCL 63.85 ml/min Normal 50-250 [facility] Comment on above: Performed By: #### L 500.2500, L100.0100 ####[facility] [address] [place], [address] GAP 10 Normal 5-15 [facility] Comment on above: Performed By: #### L 500.2500, L100.0100 ####[facility] [address] [place], [address] GFR/1.73 sq M.predicted among non-blacks MDRD (S/P/Bld) [Vol rate/Area] 99 mL/min/{1.73_m2} Normal >60 [facility] Comment on above: Result Comment: mL/m in/1.73m2 CKD-EPI Creatinine Equation (2020) Performed By: #### L 500.2500, L100.0100 ####[facility] [address] [place], [address] Glucose [Mass/Vol] 85 mg/dL Normal 70-99 [facility] Comment on above: Performed By: #### L 500.2500, L100.0100 ####[facility] [address] [place], [address] Potassium [Moles/Vol] 3.1 mmol/L Low 3.3-5.1 [facility] Comment on above: Performed By: #### L 500.2500, L100.0100 ####[facility] [address] [place], [address] Sodium [Moles/Vol] 139 mmol/L Normal 133-145 [facility] Comment on above: Performed By: #### L 500.2500, L100.0100 ####[facility] [address] [place], [address] Urea nitrogen [Mass/Vol] 15 mg/dL Normal 4-19 [facility] Comment on above: Performed By: #### L 500.2500, L100.0100 ####[facility] [address] [place], [address] CBC W/Diff, Automatedon 10-0 6-2025 Absolute Lymph 0.35 X10 3/uL Low 0.83-4.51 [facility] Comment on above: Performed By: #### L 500.2500, L100.0100 ####[facility] [address] [place], [address] Absolute Neut 6.4 X10 3/uL Normal 2.0-7.7 [facility] Comment on above: Performed By: #### L 500.2500, L100.0100 ####[facility] [address] [place], [address] Basophils/100 WBC (Bld) 0.1 % Normal 0-1 [facility] Comment on above: Performed By: #### L 500.2500, L100.0100 ####[facility] [address] [place], [address] Eosinophils/100 WBC (Bld) 0.0 % Normal 0-5 [facility] Comment on above: Performed By: #### L 500.2500, L100.0100 ####[facility] [address] [place], [address] Erythrocyte distribution width (RBC) [Ratio] 14.6 % Normal 11.6-14.6 [facility] Comment on above: Performed By: #### L 500.2500, L100.0100 ####[facility] [address] [place], [address] Hematocrit (Bld) [Volume fraction] 28.3 % Low 37-47 [facility] Comment on above: Performed By: #### L 500.2500, L100.0100 ####[facility] [address] [place], [address] Hemoglobin (Bld) [Mass/Vol] 9.0 g/dL Low 12.0-15.0 [facility] Comment on above: Performed By: #### L 500.2500, L100.0100 ####[facility] [address] [place], [address] IG% 0.600 Normal 0.0-0.9 [facility] Comment on above: Result Comment: IG% - Immature Granulocytes (promyelocytes, myelocytes andmetamyelocytes) > 1% indicates that a LEFT SHIFT is Present. Performed By: #### L 500.2500, L100.0100 ####[facility] [address] [place], [address] Lymphocytes/100 WBC (Bld) 5.0 % Low 19-41 [facility] Comment on above: Performed By: #### L 500.2500, L100.0100 ####[facility] [address] [place], [address] MCH (RBC) [Entitic mass] 25.0 pg Low 27.0-32.0 [facility] Comment on above: Performed By: #### L 500.2500, L100.0100 ####[facility] [address] [place], [address] MCHC (RBC) [Mass/Vol] 31.8 g/dL Low 32-36 [facility] Comment on above: Performed By: #### L 500.2500, L100.0100 ####[facility] [address] [place], [address] MCV (RBC) [Entitic vol] 78.6 fL Low 81-99 [facility] Comment on above: Performed By: #### L 500.2500, L100.0100 ####[facility] [address] [place], [address] Monocytes/100 WBC (Bld) 3.1 % Normal 0-10 [facility] Comment on above: Performed By: #### L 500.2500, L100.0100 ####[facility] [address] [place], [address] Neutrophils/100 WBC (Bld) 91.2 % High 47-70 [facility] Comment on above: Performed By: #### L 500.2500, L100.0100 ####[facility] [address] [place], [address] Nucleated RBC (Bld) [#/Vol] 0 10*3/uL Normal 0-5 [facility] Comment on above: Performed By: #### L 500.2500, L100.0100 ####[facility] [address] [place], [address] Platelet mean volume (Bld) [Entitic vol] 11.2 fL Normal 6.2-12.0 [facility] Comment on above: Performed By: #### L 500.2500, L100.0100 ####[facility] [address] [place], [address] Platelets (Bld) [#/Vol] 184 10*3/uL Normal 150-450 [facility] Comment on above: Performed By: #### L 500.2500, L100.0100 ####[facility] [address] [place], [address] RBC (Bld) [#/Vol] 3.60 10*6/uL Low 4.2-5.4 [facility] Comment on above: Performed By: #### L 500.2500, L100.0100 ####[facility] [address] [place], [address] RDW SD 42.1 fl Normal 35.1-43.9 [facility] Comment on above: Performed By: #### L 500.2500, L100.0100 ####[facility] [address] [place], [address] WBC (Bld) [#/Vol] 7.0 10*3/uL Normal 4.4-11.0 [facility] Comment on above: Performed By: #### L 500.2500, L100.0100 ####[facility] [address] [place], [address] CNPNon 01-29-2025 [facility] Telephone ([facility]) DENIA GONZALEZ ([id number]) 1955 F Date Time Provider Department 01/29/25 GREGOR FERNANDEZ [facility] During your visit today, we recorded the following information about you: Kajal Reyes 01/29/2025 10:31 AM Signed Left voicemail for patient to call us back to reschedule appt from 01/23/25 Rhoda Patient Multimedia EditorSonia 01/29/2025 12:24 PM Signed Received call from patient family, he let me know patient is in the hospital at this time so unable to reschedule but he will call us back when patient has discharge plan so they can reschedule Allergies As of Date: 01/29/2025 (No Known Allergies) Date Reviewed: 01/22/2025 Reviewed by: Gregor Fernandez APRN.TOE LINING CLOSER - Fully Assessed Prescriptions as of 01/29/2025 - HYDROcodone-acetamino phen (NORCO) 5-325 mg per [...] a day as needed for anxiety. - busPIRone (BUSPAR) 10 mg tablet Take [...] two times a day with meals. - nystatin (MYCOSTATIN) 100,000 unit/mL suspension Take [...] directed. Dx: COPD J44.9 - Nebulizer Accessories [facility] Mask and supplies as needed - PULSE OXIMETER [facility] Use as directed to check oxygen saturation level - ammonium lactate (AMLACTIN) 12 % lotion Apply 1 application to affected area as needed for Dry Skin. - losartan (COZAAR) 50 mg tablet Take 0.5 tablets by mouth once daily. - OXYGEN, HOME THERAPY, 2.5 L/min by Nasal Cannula route continuous. Use as directred - Disposable Gloves (DISPOSABLE LATEX-FREE GLOVES) [facility] 1 Box once every month. ICD 10: [...] be starting Problem List As Of Date 01/29/2025 Noted Resolved Other and unspecified alcohol dependence, unspe* 08/11/2018 LUNG CANCER [C34.10] 04/13/2005 06/27/2016 MALIG NEOPLASM BRONCH/LUNG NOS [C34.90] 12/08/2006 DYSTHYMIC DISORDER [F34.1] TOBACCO USE DISORDER [F17.200] 08/21/2005 Stage 3 severe COPD by GOLD classification (HCC*09/28/2005 Asthma [J45.909] GENERAL OSTEOARTHROSIS [M15.9] Essential hypertension, benign [I10] GENERALIZED ANXIETY DIS [F41.1] ABNORMAL PAP SMEAR OF CERVIX NEC AND HPV [R89.6] ESOPHAGE (more content not included)... Normal [facility] Electrocardiogram reportOrde red By: Amy Keenan on 01-29-2025 EKG study [facility] Work Phone: Modified Barium Swallow Stud yon 01-29-2025 Modified Barium Swallow Study Normal [facility] Basic Metabolic Profile (BMP )on 01-28-2025 BUN/CRE 27.8 RATIO High 10-20 [facility] Comment on above: Performed By: #### L 100.0100, L500.2500 ####[facility] [address] [place], [address] Calcium [Mass/Vol] 8.3 mg/dL Normal 7.6-11.0 [facility] Comment on above: Performed By: #### L 100.0100, L500.2500 ####[facility] [address] [place], [address] Chloride [Moles/Vol] 88 mmol/L Low 98-108 [facility] Comment on above: Performed By: #### L 100.0100, L500.2500 ####[facility] [address] [place], [address] CO2 [Moles/Vol] 41.6 mmol/L High 21.0-32.0 [facility] Comment on above: Performed By: #### L 100.0100, L500.2500 ####[facility] [address] [place], [address] Creatinine [Mass/Vol] 0.59 mg/dL Low 0.70-1.20 [facility] Comment on above: Performed By: #### L 100.0100, L500.2500 ####[facility] [address] [place], [address] ECRCL 63.85 ml/min Normal 50-250 [facility] Comment on above: Performed By: #### L 100.0100, L500.2500 ####[facility] [address] [place], [address] GAP 12 Normal 5-15 [facility] Comment on above: Performed By: #### L 100.0100, L500.2500 ####[facility] [address] [place], [address] GFR/1.73 sq M.predicted among non-blacks MDRD (S/P/Bld) [Vol rate/Area] 98 mL/min/{1.73_m2} Normal >60 [facility] Comment on above: Result Comment: mL/m in/1.73m2 CKD-EPI Creatinine Equation (2020) Performed By: #### L 100.0100, L500.2500 ####[facility] [address] [place], [address] Glucose [Mass/Vol] 77 mg/dL Normal 70-99 [facility] Comment on above: Performed By: #### L 100.0100, L500.2500 ####[facility] [address], [address] Potassium [Moles/Vol] 3.1 mmol/L Low 3.3-5.1 [facility] Comment on above: Performed By: #### L 100.0100, L500.2500 ####[facility] [address] [place], [address] Sodium [Moles/Vol] 142 mmol/L Normal 133-145 [facility] Comment on above: Performed By: #### L 100.0100, L500.2500 ####[facility] [address] [place], [address] Urea nitrogen [Mass/Vol] 16 mg/dL Normal 4-19 [facility] Comment on above: Performed By: #### L 100.0100, L500.2500 ####[facility] [address] [place], [address] CBC W/Diff, Automatedon 10-0 5-2025 Absolute Lymph 0.41 X10 3/uL Low 0.83-4.51 [facility] Comment on above: Performed By: #### L 100.0100, L500.2500 ####[facility] [address] [place], [address] Absolute Neut 7.5 X10 3/uL Normal 2.0-7.7 [facility] Comment on above: Performed By: #### L 100.0100, L500.2500 ####[facility] [address] [place], [address] Basophils/100 WBC (Bld) 0.1 % Normal 0-1 [facility] Comment on above: Performed By: #### L 100.0100, L500.2500 ####[facility] [address], [address] Eosinophils/100 WBC (Bld) 0.0 % Normal 0-5 [facility] Comment on above: Performed By: #### L 100.0100, L500.2500 ####[facility] [address] [place], [address] Erythrocyte distribution width (RBC) [Ratio] 14.6 % Normal 11.6-14.6 [facility] Comment on above: Performed By: #### L 100.0100, L500.2500 ####[facility] [address] [place], [address] Hematocrit (Bld) [Volume fraction] 29.6 % Low 37-47 [facility] Comment on above: Performed By: #### L 100.0100, L500.2500 ####[facility] [address] [place], [address] Hemoglobin (Bld) [Mass/Vol] 9.2 g/dL Low 12.0-15.0 [facility] Comment on above: Performed By: #### L 100.0100, L500.2500 ####[facility] [address] [place], [address] IG% 0.500 Normal 0.0-0.9 [facility] Comment on above: Result Comment: IG% - Immature Granulocytes (promyelocytes, myelocytes andmetamyelocytes) > 1% indicates that a LEFT SHIFT is Present. Performed By: #### L 100.0100, L500.2500 ####[facility] [address] [place], [address] Lymphocytes/100 WBC (Bld) 4.8 % Low 19-41 [facility] Comment on above: Performed By: #### L 100.0100, L500.2500 ####[facility] [address] [place], [address] MCH (RBC) [Entitic mass] 24.7 pg Low 27.0-32.0 [facility] Comment on above: Performed By: #### L 100.0100, L500.2500 ####[facility] [address] [place], [address] MCHC (RBC) [Mass/Vol] 31.1 g/dL Low 32-36 [facility] Comment on above: Performed By: #### L 100.0100, L500.2500 ####[facility] [address] [place], [address] MCV (RBC) [Entitic vol] 79.4 fL Low 81-99 [facility] Comment on above: Performed By: #### L 100.0100, L500.2500 ####[facility] [address] [place], [address] Monocytes/100 WBC (Bld) 6.0 % Normal 0-10 [facility] Comment on above: Performed By: #### L 100.0100, L500.2500 ####[facility] [address] [place], [address] Neutrophils/100 WBC (Bld) 88.6 % High 47-70 [facility] Comment on above: Performed By: #### L 100.0100, L500.2500 ####[facility] [address] [place], [address] Nucleated RBC (Bld) [#/Vol] 0 10*3/uL Normal 0-5 [facility] Comment on above: Performed By: #### L 100.0100, L500.2500 ####[facility] [address] [place], [address] Platelet mean volume (Bld) [Entitic vol] 11.0 fL Normal 6.2-12.0 [facility] Comment on above: Performed By: #### L 100.0100, L500.2500 ####[facility] [address], [address] Platelets (Bld) [#/Vol] 208 10*3/uL Normal 150-450 [facility] Comment on above: Performed By: #### L 100.0100, L500.2500 ####[facility] [address] [place], [address] RBC (Bld) [#/Vol] 3.73 10*6/uL Low 4.2-5.4 [facility] Comment on above: Performed By: #### L 100.0100, L500.2500 ####[facility] [address] [place], [address] RDW SD 42.4 fl Normal 35.1-43.9 [facility] Comment on above: Performed By: #### L 100.0100, L500.2500 ####[facility] [address] [place], [address] WBC (Bld) [#/Vol] 8.5 10*3/uL Normal 4.4-11.0 [facility] Comment on above: Performed By: #### L 100.0100, L500.2500 ####[facility] [address] [place], [address] Assessment of wrist artery p atency prior to arterial punctureOrdered By: Debby Gu on 01-27-2025 Arterial patency Wrist artery --pre arterial puncture Positive [facility] Basic Metabolic Profile (BMP )on 01-27-2025 BUN/CRE 27.2 RATIO High 10-20 [facility] Comment on above: Order Comment: post potassium Performed By: #### L 500.2500 ####[facility] [address] [place], [address] Calcium [Mass/Vol] 8.4 mg/dL Normal 7.6-11.0 [facility] Comment on above: Order Comment: post potassium Performed By: #### L 500.2500 ####[facility] [address] [place], [address] Chloride [Moles/Vol] 88 mmol/L Low 98-108 [facility] Comment on above: Order Comment: post potassium Performed By: #### L 500.2500 ####[facility] [address] [place], [address] CO2 [Moles/Vol] 41.8 mmol/L High 21.0-32.0 [facility] Comment on above: Order Comment: post potassium Performed By: #### L 500.2500 ####[facility] [address] [place], [address] Creatinine [Mass/Vol] 0.68 mg/dL Low 0.70-1.20 [facility] Comment on above: Order Comment: post potassium Performed By: #### L 500.2500 ####[facility] [address] [place], [address] ECRCL 65.40 ml/min Normal 50-250 [facility] Comment on above: Order Comment: post potassium Performed By: #### L 500.2500 ####[facility] [address] [place], [address] GAP 11 Normal 5-15 [facility] Comment on above: Order Comment: post potassium Performed By: #### L 500.2500 ####[facility] [address] [place], [address] GFR/1.73 sq M.predicted among non-blacks MDRD (S/P/Bld) [Vol rate/Area] 94 mL/min/{1.73_m2} Normal >60 [facility] Comment on above: Order Comment: post potassium Result Comment: mL/m in/1.73m2 CKD-EPI Creatinine Equation (2020) Performed By: #### L 500.2500 ####[facility] [address] [place], [address] Glucose [Mass/Vol] 78 mg/dL Normal 70-99 [facility] Comment on above: Order Comment: post potassium Performed By: #### L 500.2500 ####[facility] [address] [place], [address] Potassium [Moles/Vol] 3.6 mmol/L Normal 3.3-5.1 [facility] Comment on above: Order Comment: post potassium Performed By: #### L 500.2500 ####[facility] [address] [place], [address] Sodium [Moles/Vol] 140 mmol/L Normal 133-145 [facility] Comment on above: Order Comment: post potassium Performed By: #### L 500.2500 ####[facility] [address] [place], [address] Urea nitrogen [Mass/Vol] 19 mg/dL Normal 4-19 [facility] Comment on above: Order Comment: post potassium Performed By: #### L 500.2500 ####[facility] [address] [place], [address] BUN/CRE 28.6 RATIO High 10-20 [facility] Comment on above: Performed By: #### L 100.0100, L500.2500 ####[facility] [address] [place], [address] Calcium [Mass/Vol] 8.5 mg/dL Normal 7.6-11.0 [facility] Comment on above: Performed By: #### L 100.0100, L500.2500 ####[facility] [address] [place], [address] Chloride [Moles/Vol] 87 mmol/L Low 98-108 [facility] Comment on above: Performed By: #### L 100.0100, L500.2500 ####[facility] [address] [place], [address] CO2 [Moles/Vol] 38.5 mmol/L High 21.0-32.0 [facility] Comment on above: Performed By: #### L 100.0100, L500.2500 ####[facility] [address] [place], [address] Creatinine [Mass/Vol] 0.72 mg/dL Normal 0.70-1.20 [facility] Comment on above: Performed By: #### L 100.0100, L500.2500 ####[facility] [address] [place], [address] ECRCL 65.40 ml/min Normal 50-250 [facility] Comment on above: Performed By: #### L 100.0100, L500.2500 ####[facility] [address] [place], [address] GAP 12 Normal 5-15 [facility] Comment on above: Performed By: #### L 100.0100, L500.2500 ####[facility] [address] [place], [address] GFR/1.73 sq M.predicted among non-blacks MDRD (S/P/Bld) [Vol rate/Area] 90 mL/min/{1.73_m2} Normal >60 [facility] Comment on above: Result Comment: mL/m in/1.73m2 CKD-EPI Creatinine Equation (2020) Performed By: #### L 100.0100, L500.2500 ####[facility] [address] [place], [address] Glucose [Mass/Vol] 101 mg/dL High 70-99 [facility] Comment on above: Performed By: #### L 100.0100, L500.2500 ####[facility] [address] [place], [address] Potassium [Moles/Vol] 2.8 mmol/L Low 3.3-5.1 [facility] Comment on above: Performed By: #### L 100.0100, L500.2500 ####[facility] [address] [place], [address] Sodium [Moles/Vol] 138 mmol/L Normal 133-145 [facility] Comment on above: Performed By: #### L 100.0100, L500.2500 ####[facility] [address] [place], [address] Urea nitrogen [Mass/Vol] 21 mg/dL High 4-19 [facility] Comment on above: Performed By: #### L 100.0100, L500.2500 ####[facility] [address] [place], [address] Blood Gases by [facility] 025 CHAO TEST Positive Normal [facility] Comment on above: Performed By: #### L 9000.0800 ####[facility] [address] [place], [address] Base excess Calc (Bld) [Moles/Vol] 24 mmol/L High -2 to +2 [facility] Comment on above: Performed By: #### L 9000.0800 ####[facility] [address] [place], [address] Blood Gas Type ART Normal [facility] Comment on above: Performed By: #### L 9000.0800 ####[facility] [address] [place], [address] CO2 [Moles/Vol] 48 mmol/L Normal [facility] Comment on above: Performed By: #### L 9000.0800 ####[facility] [address] [place], [address] FI02 35.0 Normal [facility] Comment on above: Performed By: #### L 9000.0800 ####[facility] [address] [place], [address] HCO3 (Bld) [Moles/Vol] 46.4 mmol/L High 22-26 [facility] Comment on above: Performed By: #### L 9000.0800 ####[facility] [address] [place], [address] Mode PS Normal [facility] Comment on above: Performed By: #### L 9000.0800 ####[facility] [address] [place], [address] O2 Delivery Dev Adult Vent Normal [facility] Comment on above: Performed By: #### L 9000.0800 ####[facility] [address] [place], [address] pCO2 52.7 mmHg High 35-45 [facility] Comment on above: Performed By: #### L 9000.0800 ####[facility] [address] [place], [address] PEEP 5 Normal [facility] Comment on above: Performed By: #### L 9000.0800 ####[facility] [address] [place], [address] pH (Bld) 7.55 [pH] High 7.35-7.45 [facility] Comment on above: Performed By: #### L 9000.0800 ####[facility] [address] [place], [address] PO2 60 mmHG Low 75-100 [facility] Comment on above: Performed By: #### L 9000.0800 ####[facility] [address] [place], [address] SITE L Radial Normal [facility] Comment on above: Performed By: #### L 9000.0800 ####[facility] [address] [place], [address] SO2 93 Low 95-99 [facility] Comment on above: Performed By: #### L 9000.0800 ####[facility] [place] [facility] [address] [place], [address] CHAO TEST N/A Normal [facility] Comment on above: Performed By: #### L 8999.0800 ####[facility] [address] [place], [address] Base excess Calc (Bld) [Moles/Vol] 20 mmol/L High -2 to +2 [facility] Comment on above: Performed By: #### L 8999.0800 ####[facility] [address] [place], [address] Blood Gas Type ART Normal [facility] Comment on above: Performed By: #### L 8999.08 ####[facility] [address] [place], [address] CO2 [Moles/Vol] 45 mmol/L Normal [facility] Comment on above: Performed By: #### L 8999.0800 ####[facility] [address] [place], [address] FI02 35.0 Normal [facility] Comment on above: Performed By: #### L 0.0800 ####[facility] [address] [place], [address] HCO3 (Bld) [Moles/Vol] 43.7 mmol/L High 22-26 [facility] Comment on above: Performed By: #### L 8999.0800 ####[facility] [address] [place], [address] Mode AC Normal [facility] Comment on above: Performed By: #### L 0.0800 ####[facility] [address] [place], [address] O2 Delivery Dev Adult Vent Normal [facility] Comment on above: Performed By: #### L 0.0800 ####[facility] [address] [place], [address] pCO2 57.2 mmHg High 35-45 [facility] Comment on above: Performed By: #### L 0.0800 ####[facility] [address] [place], [address] PEEP 5 Normal [facility] Comment on above: Performed By: #### L 8999.0800 ####[facility] [address] [place], [address] pH (Bld) 7.49 [pH] High 7.35-7.45 [facility] Comment on above: Performed By: #### L 8999.0800 ####[facility] [address] [place], [address] PO2 72 mmHG Low 75-100 [facility] Comment on above: Performed By: #### L 0.0800 ####[facility] [address] [place], [address] RR 12 Normal [facility] Comment on above: Performed By: #### L 8999.0800 ####[facility] [address] [place], [address] SITE L Radial Normal [facility] Comment on above: Performed By: #### L 8999.0800 ####[facility] [address] [place], [address] SO2 95 Normal 95-99 [facility] Comment on above: Performed By: #### L 0.0800 ####[facility] [address] [place], [address] Vt 400.0 mL Normal [facility] Comment on above: Performed By: #### L 9000.0800 ####[facility] [address] [place], [address] Blood base excess determinat ionOrdered By: Debby Gu on 01-27-2025 Base excess Calc (BldV) [Moles/Vol] 24 mmol/L High -2-2 [facility] Blood bicarbonate measuremen tOrdered By: Debby Gu on 01-27-2025 HCO3 (Bld) [Moles/Vol] 46.4 mmol/L High 22-26 [facility] CBC W/Diff, Automatedon 10-0 Absolute Lymph 0.28 X10 3/uL Low 0.83-4.51 [facility] Comment on above: Performed By: #### L 100.0100, L500.2500 ####[facility] [address] [place], [address] Absolute Neut 5.8 X10 3/uL Normal 2.0-7.7 [facility] Comment on above: Performed By: #### L 100.0100, L500.2500 ####[facility] [address] [place], [address] Basophils/100 WBC (Bld) 0.0 % Normal 0-1 [facility] Comment on above: Performed By: #### L 100.0100, L500.2500 ####[facility] [address] [place], [address] Eosinophils/100 WBC (Bld) 0.0 % Normal 0-5 [facility] Comment on above: Performed By: #### L 100.0100, L500.2500 ####[facility] [address] [place], [address] Erythrocyte distribution width (RBC) [Ratio] 14.4 % Normal 11.6-14.6 [facility] Comment on above: Performed By: #### L 100.0100, L500.2500 ####[facility] [address] [place], [address] Hematocrit (Bld) [Volume fraction] 27.9 % Low 37-47 [facility] Comment on above: Performed By: #### L 100.0100, L500.2500 ####[facility] [address] [place], [address] Hemoglobin (Bld) [Mass/Vol] 8.9 g/dL Low 12.0-15.0 [facility] Comment on above: Performed By: #### L 100.0100, L500.2500 ####[facility] [address] [place], [address] IG% 0.500 Normal 0.0-0.9 [facility] Comment on above: Result Comment: IG% - Immature Granulocytes (promyelocytes, myelocytes andmetamyelocytes) > 1% indicates that a LEFT SHIFT is Present. Performed By: #### L 100.0100, L500.2500 ####[facility] [address] [place], [address] Lymphocytes/100 WBC (Bld) 4.4 % Low 19-41 [facility] Comment on above: Performed By: #### L 100.0100, L500.2500 ####[facility] [address] [place], [address] MCH (RBC) [Entitic mass] 24.7 pg Low 27.0-32.0 [facility] Comment on above: Performed By: #### L 100.0100, L500.2500 ####[facility] [address] [place], [address] MCHC (RBC) [Mass/Vol] 31.9 g/dL Low 32-36 [facility] Comment on above: Performed By: #### L 100.0100, L500.2500 ####[facility] [address] [place], [address] MCV (RBC) [Entitic vol] 77.3 fL Low 81-99 [facility] Comment on above: Performed By: #### L 100.0100, L500.2500 ####[facility] [address] [place], [address] Monocytes/100 WBC (Bld) 5.3 % Normal 0-10 [facility] Comment on above: Performed By: #### L 100.0100, L500.2500 ####[facility] [address] [place], [address] Neutrophils/100 WBC (Bld) 89.8 % High 47-70 [facility] Comment on above: Performed By: #### L 100.0100, L500.2500 ####[facility] [address] [place], [address] Nucleated RBC (Bld) [#/Vol] 0 10*3/uL Normal 0-5 [facility] Comment on above: Performed By: #### L 100.0100, L500.2500 ####[facility] [address] [place], [address] Platelet mean volume (Bld) [Entitic vol] 10.2 fL Normal 6.2-12.0 [facility] Comment on above: Performed By: #### L 100.0100, L500.2500 ####[facility] [address] [place], [address] Platelets (Bld) [#/Vol] 199 10*3/uL Normal 150-450 [facility] Comment on above: Performed By: #### L 100.0100, L500.2500 ####[facility] [address] [place], [address] RBC (Bld) [#/Vol] 3.61 10*6/uL Low 4.2-5.4 [facility] Comment on above: Performed By: #### L 100.0100, L500.2500 ####[facility] [address] [place], [address] RDW SD 40.8 fl Normal 35.1-43.9 [facility] Comment on above: Performed By: #### L 100.0100, L500.2500 ####[facility] [address] [place], [address] WBC (Bld) [#/Vol] 6.4 10*3/uL Normal 4.4-11.0 [facility] Comment on above: Performed By: #### L 100.0100, L500.2500 ####[facility] [address] [place], [address] Chest 1 View (Portable)on Chest 1 View (Portable) Normal [facility] Culture, Blood (WB)on 2024 CUB Blood cultures x2, from two different sites No growth in 5 days. Normal [facility] Comment on above: Performed By: #### M 200.1000 ####[facility] [address] [place], [address] HH, Hemoglobin AND Hematocri ton 01-27-2025 Hematocrit (Bld) [Volume fraction] 25.8 % Low 37-47 [facility] Comment on above: Performed By: #### L 100.0600 ####[facility] [address] [place], [address] Hemoglobin (Bld) [Mass/Vol] 8.5 g/dL Low 12.0-15.0 [facility] Comment on above: Performed By: #### L 100.0600 ####[facility] [address] [place], [address] Measurement, pHOrdered By: Ceasar Gu on 01-27-2025 pH (Unsp spec) 7.55 [pH] High 7.35-7.45 [facility] No Panel InformationOrdered By: Debby Gu on 01-27-2025 ART [facility] L Radial [facility] PS [facility] Adult Vent [facility] 5 [facility] No Panel InformationOrdered By: Alessandro Palma on 01-27-2025 400.0 mL [facility] 12 [facility] Respiratory Cultureon 2024 RESPC Normal [facility] Comment on above: Performed By: #### M 100.2400, M100.2000 ####[facility] [address] [place], [address] Total carbon dioxide measure mentOrdered By: Debby Gu on 01-27-2025 CO2 [Moles/Vol] 48 mmol/L [facility] Abdomen Single View (Portabl e)on 01-26-2025 Abdomen Single View (Portable) Normal [facility] Activated partial thrombopla stin time (aPTT) in platelet poor plasma by coagulation aOrdered By: Andriy Guzmán on 01-26-2025 aPTT Coag (PPP) [Time] 36.1 s 24.1-36.2 [facility] BRCon 01-26-2025 RC Normal [facility] Comment on above: Result Comment: [id number] AP RC TRANSFUSED 01/26/25 1621 Performed By: #### B RC ####[facility] [address] [place], [address] Basic Metabolic Profile (BMP )on 01-26-2025 BUN/CRE 38.6 RATIO High 10-20 [facility] Comment on above: Performed By: #### L 100.0100, L500.2500 ####[facility] [address] [place], [address] Calcium [Mass/Vol] 8.4 mg/dL Normal 7.6-11.0 [facility] Comment on above: Performed By: #### L 100.0100, L500.2500 ####[facility] [address] [place], [address] Chloride [Moles/Vol] 86 mmol/L Low 98-108 [facility] Comment on above: Performed By: #### L 100.0100, L500.2500 ####[facility] [address] [place], [address] CO2 [Moles/Vol] 39.2 mmol/L High 21.0-32.0 [facility] Comment on above: Performed By: #### L 100.0100, L500.2500 ####[facility] [address] [place], [address] Creatinine [Mass/Vol] 0.68 mg/dL Low 0.70-1.20 [facility] Comment on above: Performed By: #### L 100.0100, L500.2500 ####[facility] [address] [place], [address] ECRCL 65.19 ml/min Normal 50-250 [facility] Comment on above: Performed By: #### L 100.0100, L500.2500 ####[facility] [address] [place], [address] GAP 10 Normal 5-15 [facility] Comment on above: Performed By: #### L 100.0100, L500.2500 ####[facility] [address] [place], [address] GFR/1.73 sq M.predicted among non-blacks MDRD (S/P/Bld) [Vol rate/Area] 94 mL/min/{1.73_m2} Normal >60 [facility] Comment on above: Result Comment: mL/m in/1.73m2 CKD-EPI Creatinine Equation (2020) Performed By: #### L 100.0100, L500.2500 ####[facility] [address] [place], [address] Glucose [Mass/Vol] 114 mg/dL High 70-99 [facility] Comment on above: Performed By: #### L 100.0100, L500.2500 ####[facility] [address] [place], [address] Potassium [Moles/Vol] 3.1 mmol/L Low 3.3-5.1 [facility] Comment on above: Performed By: #### L 100.0100, L500.2500 ####[facility] [address] [place], [address] Sodium [Moles/Vol] 135 mmol/L Normal 133-145 [facility] Comment on above: Performed By: #### L 100.0100, L500.2500 ####[facility] [address] [place], [address] Urea nitrogen [Mass/Vol] 26 mg/dL High 4-19 [facility] Comment on above: Performed By: #### L 100.0100, L500.2500 ####[facility] [address] [place], [address] Bilirubin directOrdered By: Andriy Guzmán on 01-26-2025 Bilirubin.direct [Mass/Vol] 0.19 mg/dL Normal 0.00-0.30 [facility] Comment on above: Performed By: #### L 300.3900, L300.4310, L500.3400 ####[facility] [address] [place], [address] Bilirubin, totalOrdered By: Andriy Guzmán on 01-26-2025 Bilirubin [Mass/Vol] 0.33 mg/dL Normal 0.00-1.30 [facility] Comment on above: Performed By: #### L 300.3900, L300.4310, L500.3400 ####[facility] [address] [place], [address] Blood Gases by [facility] 025 CHAO TEST N/A Normal [facility] Comment on above: Performed By: #### L 9000.0800 ####[facility] [address] [place], [address] Base excess Calc (Bld) [Moles/Vol] 20 mmol/L High -2 to +2 [facility] Comment on above: Performed By: #### L 9000.0800 ####[facility] [address] [place], [address] Blood Gas Type ART Normal [facility] Comment on above: Performed By: #### L 9000.0800 ####[facility] [address] [place], [address] CO2 [Moles/Vol] 44 mmol/L Normal [facility] Comment on above: Performed By: #### L 9000.0800 ####[facility] [address] [place], [address] FI02 35.0 Normal [facility] Comment on above: Performed By: #### L 9000.0800 ####[facility] [address] [place], [address] HCO3 (Bld) [Moles/Vol] 42.4 mmol/L High 22-26 [facility] Comment on above: Performed By: #### L 9000.0800 ####[facility] [address] [place], [address] Mode AC Normal [facility] Comment on above: Performed By: #### L 9000.0800 ####[facility] [address] [place], [address] O2 Delivery Dev Adult Vent Normal [facility] Comment on above: Performed By: #### L 9000.0800 ####[facility] [address] [place], [address] pCO2 52.7 mmHg High 35-45 [facility] Comment on above: Performed By: #### L 9000.0800 ####[facility] [address] [place], [address] PEEP 5 Normal [facility] Comment on above: Performed By: #### L 0.0800 ####[facility] [address] [place], [address] pH (Bld) 7.51 [pH] High 7.35-7.45 [facility] Comment on above: Performed By: #### L 9000.0800 ####[facility] [address] [place], [address] PO2 64 mmHG Low 75-100 [facility] Comment on above: Performed By: #### L 9000.0800 ####[facility] [address] [place], [address] RR 12 Normal [facility] Comment on above: Performed By: #### L 0.0800 ####[facility] [address] [place], [address] SITE L Radial Normal [facility] Comment on above: Performed By: #### L 9000.0800 ####[facility] [address] [place], [address] SO2 93 Low 95-99 [facility] Comment on above: Performed By: #### L 9000.0800 ####[facility] [address] [place], [address] Vt 400.0 mL Normal [facility] Comment on above: Performed By: #### L 9000.0800 ####[facility] [address] [place], [address] CBC W/Diff, Automatedon 10-0 3-2025 Absolute Lymph 0.27 X10 3/uL Low 0.83-4.51 [facility] Comment on above: Performed By: #### L 100.0100, L500.2500 ####[facility] [address] [place], [address] Absolute Neut 7.5 X10 3/uL Normal 2.0-7.7 [facility] Comment on above: Performed By: #### L 100.0100, L500.2500 ####[facility] [address] [place], [address] Basophils/100 WBC (Bld) 0.1 % Normal 0-1 [facility] Comment on above: Performed By: #### L 100.0100, L500.2500 ####[facility] [address] [place], [address] Eosinophils/100 WBC (Bld) 0.0 % Normal 0-5 [facility] Comment on above: Performed By: #### L 100.0100, L500.2500 ####[facility] [address] [place], [address] Erythrocyte distribution width (RBC) [Ratio] 13.9 % Normal 11.6-14.6 [facility] Comment on above: Performed By: #### L 100.0100, L500.2500 ####[facility] [address] [place], [address] Hematocrit (Bld) [Volume fraction] 23.7 % Low 37-47 [facility] Comment on above: Performed By: #### L 100.0100, L500.2500 ####[facility] [address] [place], [address] Hemoglobin (Bld) [Mass/Vol] 7.4 g/dL Low 12.0-15.0 [facility] Comment on above: Performed By: #### L 100.0100, L500.2500 ####[facility] [address] [place], [address] IG% 0.500 Normal 0.0-0.9 [facility] Comment on above: Result Comment: IG% - Immature Granulocytes (promyelocytes, myelocytes andmetamyelocytes) > 1% indicates that a LEFT SHIFT is Present. Performed By: #### L 100.0100, L500.2500 ####[facility] [address] [place], [address] Lymphocytes/100 WBC (Bld) 3.3 % Low 19-41 [facility] Comment on above: Performed By: #### L 100.0100, L500.2500 ####[facility] [address] [place], [address] MCH (RBC) [Entitic mass] 24.0 pg Low 27.0-32.0 [facility] Comment on above: Performed By: #### L 100.0100, L500.2500 ####[facility] [address] [place], [address] MCHC (RBC) [Mass/Vol] 31.2 g/dL Low 32-36 [facility] Comment on above: Performed By: #### L 100.0100, L500.2500 ####[facility] [address] [place], [address] MCV (RBC) [Entitic vol] 76.9 fL Low 81-99 [facility] Comment on above: Performed By: #### L 100.0100, L500.2500 ####[facility] [address] [place], [address] Monocytes/100 WBC (Bld) 4.6 % Normal 0-10 [facility] Comment on above: Performed By: #### L 100.0100, L500.2500 ####[facility] [address] [place], [address] Neutrophils/100 WBC (Bld) 91.5 % High 47-70 [facility] Comment on above: Performed By: #### L 100.0100, L500.2500 ####[facility] [address] [place], [address] Nucleated RBC (Bld) [#/Vol] 0 10*3/uL Normal 0-5 [facility] Comment on above: Performed By: #### L 100.0100, L500.2500 ####[facility] [address] [place], [address] Platelet mean volume (Bld) [Entitic vol] 10.9 fL Normal 6.2-12.0 [facility] Comment on above: Performed By: #### L 100.0100, L500.2500 ####[facility] [address] [place], [address] Platelets (Bld) [#/Vol] 240 10*3/uL Normal 150-450 [facility] Comment on above: Performed By: #### L 100.0100, L500.2500 ####[facility] [address] [place], [address] RBC (Bld) [#/Vol] 3.08 10*6/uL Low 4.2-5.4 [facility] Comment on above: Performed By: #### L 100.0100, L500.2500 ####[facility] [address] [place], [address] RDW SD 38.9 fl Normal 35.1-43.9 [facility] Comment on above: Performed By: #### L 100.0100, L500.2500 ####[facility] [address] [place], [address] WBC (Bld) [#/Vol] 8.2 10*3/uL Normal 4.4-11.0 [facility] Comment on above: Performed By: #### L 100.0100, L500.2500 ####[facility] [address] [place], [address] Absolute Lymph 0.30 X10 3/uL Low 0.83-4.51 [facility] Comment on above: Performed By: #### L 100.0100 ####[facility] [address] [place], [address] Absolute Neut 6.2 X10 3/uL Normal 2.0-7.7 [facility] Comment on above: Performed By: #### L 100.0100 ####[facility] [address] [place], [address] Basophils/100 WBC (Bld) 0.1 % Normal 0-1 [facility] Comment on above: Performed By: #### L 100.0100 ####[facility] [address] [place], [address] Eosinophils/100 WBC (Bld) 0.0 % Normal 0-5 [facility] Comment on above: Performed By: #### L 100.0100 ####[facility] [address] [place], [address] Erythrocyte distribution width (RBC) [Ratio] 13.8 % Normal 11.6-14.6 [facility] Comment on above: Performed By: #### L 100.0100 ####[facility] [address] [place], [address] Hematocrit (Bld) [Volume fraction] 22.8 % Low 37-47 [facility] Comment on above: Performed By: #### L 100.0100 ####[facility] [address] [place], [address] Hemoglobin (Bld) [Mass/Vol] 7.1 g/dL Low 12.0-15.0 [facility] Comment on above: Performed By: #### L 100.0100 ####[facility] [address] [place], [address] IG% 0.400 Normal 0.0-0.9 [facility] Comment on above: Result Comment: IG% - Immature Granulocytes (promyelocytes, myelocytes andmetamyelocytes) > 1% indicates that a LEFT SHIFT is Present. Performed By: #### L 100.0100 ####[facility] [address] [place], [address] Lymphocytes/100 WBC (Bld) 4.4 % Low 19-41 [facility] Comment on above: Performed By: #### L 100.0100 ####[facility] [address] [place], [address] MCH (RBC) [Entitic mass] 24.3 pg Low 27.0-32.0 [facility] Comment on above: Performed By: #### L 100.0100 ####[facility] [address] [place], [address] MCHC (RBC) [Mass/Vol] 31.1 g/dL Low 32-36 [facility] Comment on above: Performed By: #### L 100.0100 ####[facility] [address] [place], [address] MCV (RBC) [Entitic vol] 78.1 fL Low 81-99 [facility] Comment on above: Performed By: #### L 100.0100 ####[facility] [address] [place], [address] Monocytes/100 WBC (Bld) 4.2 % Normal 0-10 [facility] Comment on above: Performed By: #### L 100.0100 ####[facility] [address] [place], [address] Neutrophils/100 WBC (Bld) 90.9 % High 47-70 [facility] Comment on above: Performed By: #### L 100.0100 ####[facility] [address] [place], [address] Nucleated RBC (Bld) [#/Vol] 0 10*3/uL Normal 0-5 [facility] Comment on above: Performed By: #### L 100.0100 ####[facility] [address] [place], [address] Platelet mean volume (Bld) [Entitic vol] 11.2 fL Normal 6.2-12.0 [facility] Comment on above: Performed By: #### L 100.0100 ####[facility] [address] [place], [address] Platelets (Bld) [#/Vol] 212 10*3/uL Normal 150-450 [facility] Comment on above: Performed By: #### L 100.0100 ####[facility] [address] [place], [address] RBC (Bld) [#/Vol] 2.92 10*6/uL Low 4.2-5.4 [facility] Comment on above: Performed By: #### L 100.0100 ####[facility] [address] [place], [address] RDW SD 39.6 fl Normal 35.1-43.9 [facility] Comment on above: Performed By: #### L 100.0100 ####[facility] [address] [place], [address] WBC (Bld) [#/Vol] 6.9 10*3/uL Normal 4.4-11.0 [facility] Comment on above: Performed By: #### L 100.0100 ####[facility] [address] [place], [address] Chest 1 View (Portable)on Chest 1 View (Portable) Normal [facility] Consultation - Cardiologyon 01-26-2025 Consultation - Cardiology Normal [facility] Echo, Limited Studyon 2024 Echo, Limited Study Normal [facility] HH, Hemoglobin AND Hematocri ton 01-26-2025 Hematocrit (Bld) [Volume fraction] 26.2 % Low 37-47 [facility] Comment on above: Performed By: #### L 100.0600 ####[facility] [address] [place], [address] Hemoglobin (Bld) [Mass/Vol] 8.8 g/dL Low 12.0-15.0 [facility] Comment on above: Performed By: #### L 100.0600 ####[facility] [address] [place], [address] HCT Normal 37-47 [facility] Comment on above: Result Comment: ICU CALLED TO CANCEL (MIMI) Performed By: #### L 100.0600 ####[facility] [address] [place], [address] HGB Normal 12.0-15.0 [facility] Comment on above: Result Comment: ICU CALLED TO CANCEL (MIMI) Performed By: #### L 100.0600 ####[facility] [address] [place], [address] Hematocrit (Bld) [Volume fraction] 21.4 % Low 37-47 [facility] Comment on above: Performed By: #### L 100.0600 ####[facility] [address] [place], [address] Hemoglobin (Bld) [Mass/Vol] 6.7 g/dL Low 12.0-15.0 [facility] Comment on above: Performed By: #### L 100.0600 ####[facility] [address] [place], [address] Iron measurement (mass/mass) Ordered By: Alessandro Palma on 01-26-2025 Iron (Unsp spec) [Mass/Mass] 12 ug/dL Low 50-170 [facility] Iron+Iron Binding Capacityon 01-26-2025 Iron [Mass/Vol] 12 ug/dL Low 50-170 [facility] Comment on above: Performed By: #### L 503.6030, L100.9950, L503.6550 ####[facility] [address] [place], [address] IRON SATURATION 4.1 Low 13-59 [facility] Comment on above: Performed By: #### L 503.6030, L100.9950, L503.6550 ####[facility] [address] [place], [address] TIBC 280 ug/dL Normal 250-450 [facility] Comment on above: Performed By: #### L 503.6030, L100.9950, L503.6550 ####[facility] [address] [place], [address] UIBC 268 ug/dL Normal 228-428 [facility] Comment on above: Performed By: #### L 503.6030, L100.9950, L503.6550 ####[facility] [address] [place], [address] Limited echocardiogram repor tOrdered By: Amy Keenan on 01-26-2025 Study report [facility] Work Phone: Liver Profileon 01-26-2025 ALK PHOS 44 U/L Normal 35-104 [facility] Comment on above: Performed By: #### L 300.3900, L300.4310, L500.3400 ####[facility] [address] [place], [address] AST [Catalytic activity/Vol] 21 U/L Normal <=31 [facility] Comment on above: Performed By: #### L 300.3900, L300.4310, L500.3400 ####[facility] [address] [place], [address] T PROT 5.4 g/dL Low 5.9-8.4 [facility] Comment on above: Performed By: #### L 300.3900, L300.4310, L500.3400 ####[facility] [address] [place], [address] No Panel InformationOrdered By: Andriy Guzmán on 01-26-2025 21 U/L <32 [facility] No Panel InformationOrdered By: Alessandro Palma on 01-26-2025 268 ug/dL 228-428 [facility] Partial Thromboplast Timeon 01-26-2025 aPTT Coag (Bld) [Time] 36.1 s Normal 24.1-36.2 [facility] Comment on above: Performed By: #### L 300.3900, L300.4310, L500.3400 ####[facility] [address] [place], [address] Prothrombin Time w/INRon INR Coag (PPP) [Relative time] 1.5 {INR} Normal [facility] Comment on above: Performed By: #### L 300.3900, L300.4310, L500.3400 ####[facility] [address] [place], [address] Prothrombin timeOrdered By: Andriy Guzmán on 01-26-2025 PT Coag (PPP) [Time] 18.2 s High 11.7-14.9 [facility] Comment on above: Performed By: #### L 300.3900, L300.4310, L500.3400 ####[facility] [address] [place], [address] Retic Panelon 01-26-2025 IM RET FRACTION 16.90 High 3.00-15.90 [facility] Comment on above: Performed By: #### L 503.6030, L100.9950, L503.6550 ####[facility] [address] [place], [address] RET-HE 22.9 pg Low 30-35 [facility] Comment on above: Performed By: #### L 503.6030, L100.9950, L503.6550 ####[facility] [address] [place], [address] Retic Count 2.14 High 0.5-1.5 [facility] Comment on above: Performed By: #### L 503.6030, L100.9950, L503.6550 ####[facility] [address] [place], [address] Reticulocyte hemoglobin equi valent (RET-He) measurementOrdered By: Alessandro Palma on 01-26-2025 Hemoglobin (Reticulocytes) [Entitic mass] 22.9 pg Low 30-35 [facility] Reticulocytes Auto (Bld) [#/ Vol]Ordered By: Alessandro Palma on 01-26-2025 Reticulocytes/100 RBC (Bld) 2.14 % High 0.5-1.5 [facility] [facility] Serum globulin measurementOr dered By: Andriy Guzmán on 01-26-2025 Globulin (S) [Mass/Vol] 1.9 g/dL Low 2.2-4.2 [facility] Comment on above: Performed By: #### L 300.3900, L300.4310, L500.3400 ####[facility] [address] [place], [address] Serum or plasma alanine retana otransferase (ALT) measurementOrdered By: Andriy Guzmán on 01-26-2025 ALT [Catalytic activity/Vol] 19 U/L Normal <=34 [facility] Comment on above: Performed By: #### L 300.3900, L300.4310, L500.3400 ####[facility] [address] [place], [address] Serum or plasma albumin kadi urement (mass/volume)Ordered By: Andriy Guzmán on 01-26-2025 Albumin [Mass/Vol] 3.5 g/dL Normal 3.4-4.8 [facility] Comment on above: Performed By: #### L 300.3900, L300.4310, L500.3400 ####[facility] [address] [place], [place], [address] Serum or plasma alkaline renetta sphatase measurementOrdered By: Andriy Guzmán on 01-26-2025 ALP [Catalytic activity/Vol] 44 U/L 35-104 [facility] Serum or plasma ferritin ranjith surement (mass/volume)Ordered By: Alessandro Palma on 01-26-2025 Ferritin [Mass/Vol] 29 ng/mL Normal 22-378 [facility] Comment on above: Performed By: #### L 503.6030, L100.9950, L503.6550 ####[facility] [address] [place], [place], [address] Serum or plasma iron saturat ion measurement (mass fraction)Ordered By: Alessandro Palma on 01-26-2025 Iron saturation [Mass fraction] 4.1 % Low 13-59 [facility] Total proteinOrdered By: Spencer on 01-26-2025 Protein [Mass/Vol] 5.4 g/dL Low 5.9-8.4 [facility] Type AND Screenon 01-26-2025 Ab SCREEN GEL Negative Normal [facility] Comment on above: Order Comment: A Performed By: #### B TS ####[facility] [address] [place], [place], [address] ABO and Rh group Nom (Bld) Blood group A Rh(D) positive Normal [facility] Comment on above: Order Comment: A Performed By: #### B TS ####[facility] [address] [place], [place], [address] 12 Lead EKGon 01-25-2025 12 Lead EKG Normal [facility] Absolute lymphocyte countOrd ered By: Mercy Flores on 01-25-2025 Lymphocytes Auto (Unsp spec) [#/Vol] 1.53 10*3/uL 0.83-4.51 [facility] Anion gap in Serum or Plasma Ordered By: Mercy Flores on 01-25-2025 Anion gap [Moles/Vol] 9 mmol/L 5-15 [facility] Automated lymphocyte count a s percentage of total leukocytesOrdered By: Mercy Flores on 01-25-2025 Lymphocytes/100 WBC Auto (Unsp spec) 12.5 % Low 19-41 [facility] BUN/creatinine ratioOrdered By: Mercy Flores on 01-25-2025 Urea nitrogen/Creatinine [Mass ratio] 48.1 mg/mg High 02-12 [facility] Basic Metabolic Profile (BMP )on 01-25-2025 BUN/CRE 48.1 RATIO High 02-12 [facility] Comment on above: Performed By: #### L 500.2500, L100.0100 ####[facility] [address] [place], [address] ECRCL 65.65 ml/min Normal 50-250 [facility] Comment on above: Performed By: #### L 500.2500, L100.0100 ####[facility] [address] [place], [address] GAP 9 Normal - [facility] Comment on above: Performed By: #### L 500.2500, L100.0100 ####[facility] [address] [place], [address] Potassium [Moles/Vol] 3.5 mmol/L Normal 3.3-5.1 [facility] Comment on above: Performed By: #### L 500.2500, L100.0100 ####[facility] [address] [place], [address] Basophil percentageOrdered B y: Mercy Flores on 01-25-2025 Basophils/100 WBC (Bld) 0.2 % 0-1 [facility] Bilirubin Test strip Ql (U)O rdered By: Andriy Guzmán on 01-25-2025 Bilirubin Ql (U) Negative Negative [facility] Bilirubin directOrdered By: Alessandro Palma on 01-25-2025 Bilirubin.direct [Mass/Vol] 0.17 mg/dL 0.00-0.30 [facility] Bilirubin, totalOrdered By: Alessandro Palma on 01-25-2025 Bilirubin [Mass/Vol] 0.34 mg/dL 0.00-1.30 [facility] Base excess Calc (Bld) [Moles/Vol] 23 mmol/L High -2 to +2 [facility] Comment on above: Performed By: #### L 9000.0800 ####[facility] [address] [place], [address] Blood Gas Type ART Normal [facility] Comment on above: Performed By: #### L 9000.0800 ####[facility] [address] [place], [address] CO2 [Moles/Vol] 48 mmol/L Normal [facility] Comment on above: Performed By: #### L 9000.0800 ####[facility] [address] [place], [address] FI02 30.0 Normal [facility] Comment on above: Performed By: #### L 9000.0800 ####[facility] [address] [place], [address] HCO3 (Bld) [Moles/Vol] 46.3 mmol/L High 22-26 [facility] Comment on above: Performed By: #### L 9000.0800 ####[facility] [address] [place], [address] Mode AC Normal [facility] Comment on above: Performed By: #### L 9000.0800 ####[facility] [address] [place], [address] O2 Delivery Dev Adult Vent Normal [facility] Comment on above: Performed By: #### L 9000.0800 ####[facility] [address] [place], [address] pCO2 58.7 mmHg High 35-45 [facility] Comment on above: Performed By: #### L 9000.0800 ####[facility] [address] [place], [address] PEEP 5 Normal [facility] Comment on above: Performed By: #### L 9000.0800 ####[facility] [address] [place], [address] pH (Bld) 7.51 [pH] High 7.35-7.45 [facility] Comment on above: Performed By: #### L 9000.0800 ####[facility] [address] [place], [address] PO2 51 mmHG Low 75-100 [facility] Comment on above: Performed By: #### L 9000.0800 ####[facility] [address] [place], [address] RR 16 Normal [facility] Comment on above: Performed By: #### L 9000.0800 ####[facility] [address] [place], [address] SITE L Brach Normal [facility] Comment on above: Performed By: #### L 9000.0800 ####[facility] [address] [place], [address] SO2 87 Low 95-99 [facility] Comment on above: Performed By: #### L 9000.0800 ####[facility] [address] [place], [address] Vt 400.0 mL Normal [facility] Comment on above: Performed By: #### L 9000.0800 ####[facility] [address] [place], [address] Blood base excess determinat ionOrdered By: Mercy Flores on 01-25-2025 Base excess Calc (BldV) [Moles/Vol] 23 mmol/L High -2-2 [facility] Blood bicarbonate measuremen tOrdered By: Mercy Flores on 01-25-2025 HCO3 (Bld) [Moles/Vol] 46.3 mmol/L High 22-26 [facility] Blood cultureOrdered By: Keyla Flores on 01-25-2025 Bacteria identified Cx Nom (Bld) No growth in 5 days. [facility] Brain/Head without Contrasto n 01-25-2025 Brain/Head without Contrast Normal [facility] CBC W/Diff, Automatedon 10-0 Absolute Lymph 1.53 X10 3/uL Normal 0.83-4.51 [facility] Comment on above: Performed By: #### L 500.2500, L100.0100 ####[facility] [address] [place], [address] Absolute Neut 9.1 X10 3/uL High 2.0-7.7 [facility] Comment on above: Performed By: #### L 500.2500, L100.0100 ####[facility] [address] [place], [address] Basophils/100 WBC (Bld) 0.2 % Normal 0-1 [facility] Comment on above: Performed By: #### L 500.2500, L100.0100 ####[facility] [address] [place], [address] Eosinophils/100 WBC (Bld) 1.3 % Normal 0-5 [facility] Comment on above: Performed By: #### L 500.2500, L100.0100 ####[facility] [address] [place], [address] Erythrocyte distribution width (RBC) [Ratio] 13.6 % Normal 11.6-14.6 [facility] Comment on above: Performed By: #### L 500.2500, L100.0100 ####[facility] [address] [place], [address] Hematocrit (Bld) [Volume fraction] 28.8 % Low 37-47 [facility] Comment on above: Performed By: #### L 500.2500, L100.0100 ####[facility] [address] [place], [address] Hemoglobin (Bld) [Mass/Vol] 8.4 g/dL Low 12.0-15.0 [facility] Comment on above: Performed By: #### L 500.2500, L100.0100 ####[facility] [address] [place], [address] IG% 0.700 Normal 0.0-0.9 [facility] Comment on above: Result Comment: IG% - Immature Granulocytes (promyelocytes, myelocytes andmetamyelocytes) > 1% indicates that a LEFT SHIFT is Present. Performed By: #### L 500.2500, L100.0100 ####[facility] [address] [place], [address] Lymphocytes/100 WBC (Bld) 12.5 % Low 19-41 [facility] Comment on above: Performed By: #### L 500.2500, L100.0100 ####[facility] [address] [place], [address] MCH (RBC) [Entitic mass] 23.9 pg Low 27.0-32.0 [facility] Comment on above: Performed By: #### L 500.2500, L100.0100 ####[facility] [address] [place], [address] MCHC (RBC) [Mass/Vol] 29.2 g/dL Low 32-36 [facility] Comment on above: Performed By: #### L 500.2500, L100.0100 ####[facility] [address] [place], [address] MCV (RBC) [Entitic vol] 81.8 fL Normal 81-99 [facility] Comment on above: Performed By: #### L 500.2500, L100.0100 ####[facility] [address], [address] Monocytes/100 WBC (Bld) 11.0 % High 0-10 [facility] Comment on above: Performed By: #### L 500.2500, L100.0100 ####[facility] [address] [place], [address] Neutrophils/100 WBC (Bld) 74.3 % High 47-70 [facility] Comment on above: Performed By: #### L 500.2500, L100.0100 ####[facility] [address] [place], [address] Nucleated RBC (Bld) [#/Vol] 0 10*3/uL Normal 0-5 [facility] Comment on above: Performed By: #### L 500.2500, L100.0100 ####[facility] [address] [place], [address] Platelet mean volume (Bld) [Entitic vol] 10.5 fL Normal 6.2-12.0 [facility] Comment on above: Performed By: #### L 500.2500, L100.0100 ####[facility] [address] [place], [address] Platelets (Bld) [#/Vol] 315 10*3/uL Normal 150-450 [facility] Comment on above: Performed By: #### L 500.2500, L100.0100 ####[facility] [address] [place], [address] RBC (Bld) [#/Vol] 3.52 10*6/uL Low 4.2-5.4 [facility] Comment on above: Performed By: #### L 500.2500, L100.0100 ####[facility] [address] [place], [address] RDW SD 40.7 fl Normal 35.1-43.9 [facility] Comment on above: Performed By: #### L 500.2500, L100.0100 ####[facility] [address] [place], [address] WBC (Bld) [#/Vol] 12.2 10*3/uL High 4.4-11.0 [facility] Comment on above: Performed By: #### L 500.2500, L100.0100 ####[facility] [address] [place], [address] [facility] DEN[facility] GONZALEZ ([id number]) 1955 F Date Time Provider Department 01/25/25 YOSEPH FALL [facility] During your visit today, we recorded the following information about you: Judy Bliss RN 01/25/2025 3:27 PM Signed Palma Anguiano from [facility] calls and states that patient has been Admitted to [facility]. Patient is on a Vent in ICU. KAREN Werner Mark D, MD 01/25/2025 3:56 PM Signed Noted Yoseph Fall MD Allergies As of Date: 01/25/2025 (No Known Allergies) Date Reviewed: 01/22/2025 Reviewed by: Gregor Fernandez APRN.TO[employer]ING [employer]ER - Fully Assessed Reason for Visit: Patient Update [1234] Prescriptions as of 01/25/2025 - doxycycline hyclate (VIBRAMYCIN) 100 mg capsule Take 1 capsule by mouth two times a day for [...] a day as needed for anxiety. - busPIRone (BUSPAR) 10 mg tablet Take [...] two times a day with meals. - nystatin (MYCOSTATIN) 100,000 unit/mL suspension Take [...] directed. Dx: COPD J44.9 - Nebulizer Accessories [facility] Mask and supplies as needed - PULSE OXIMETER [facility] Use as directed to check oxygen saturation level - ammonium lactate (AMLACTIN) 12 % lotion Apply 1 application to affected area as needed for Dry Skin. - losartan (COZAAR) 50 mg tablet Take 0.5 tablets by mouth once daily. - OXYGEN, HOME THERAPY, 2.5 L/min by Nasal Cannula route continuous. Use as directred - Disposable Gloves (DISPOSABLE LATEX-FREE GLOVES) [facility] 1 Box once every month. ICD 10: [...] be starting Problem List As Of Date 01/25/2025 Noted Resolved Other and unspecified alcohol dependence, unspe* 08/11/2018 LUNG CANCER [C34.10] 04/13/2005 06/27/2016 MALIG NEOPLASM BRONCH/LUNG NOS [C34.90] 12/08/2006 DYSTHYMIC DISORDER [F34.1] TOBACCO USE DISORDER [F17.200] 08/21/2005 Stage 3 severe COPD by GOLD classification (HCC*09/28/2005 Asthma [J45.909] GENERAL OSTEOARTHROSIS [M15.9] Essential hypertension, benign [I10] GENERALIZED ANXIETY DIS [F41.1] ABNORMAL PAP SMEAR OF CERVIX NEC AN (more content not included)... Normal [facility] CPK Total, Creatine Kinaseon 01-25-2025 CPK TOTAL 77 U/L Normal 24-195 [facility] Comment on above: Order Comment: Comme nts: DC when propofol is d/c'd Performed By: #### L 501.5000, L501.3620 ####[facility] [address] [place], [place], [id number] CTA Chest W/WO Contraston CTA Chest W/WO Contrast Normal [facility] Carbon dioxide, total [Moles /volume] in Central venous bloodOrdered By: Mercy Flores on 01-25-2025 CO2 [Moles/Vol] 44.1 mmol/L High 21.0-32.0 [facility] Comment on above: Performed By: #### L 500.2500, L100.0100 ####[facility] [address] [place], [address] Chest 1 View (Portable)on Chest 1 View (Portable) Normal [facility] Chloride assayOrdered By: Naun Flores on 01-25-2025 Chloride [Moles/Vol] 84 mmol/L Low 98-108 [facility] Comment on above: Performed By: #### L 500.2500, L100.0100 ####[facility] [address] [place], [address] Consultation - Intensiviston 01-25-2025 Consultation - Sleep Technician Normal [facility] Emergency Department Summary on 01-25-2025 Emergency Department Summary Normal [facility] Eosinophil percentageOrdered By: Mercy Flores on 01-25-2025 Eosinophils/100 WBC (Bld) 1.3 % 0-5 [facility] Erythrocyte distribution wid th ratioOrdered By: Mercy Flores on 01-25-2025 Erythrocyte distribution width (RBC) [Ratio] 13.6 % 11.6-14.6 [facility] Erythrocyte distribution wid th standard deviationOrdered By: Mercy Flores on 01-25-2025 Erythrocyte distribution width (RBC) [Ratio] 40.7 fl 35.1-43.9 [facility] Glomerular filtration rate ( GFR) estimation/1.73 sq m using serum, plasma, or whole bOrdered By: Mercy Flores on 01-25-2025 GFR/1.73 sq M.predicted among non-blacks MDRD (S/P/Bld) [Vol rate/Area] 96 mL/min/{1.73_m2} Normal >60 [facility] Comment on above: Result Comment: mL/m in/1.73m2 CKD-EPI Creatinine Equation (2020) Performed By: #### L 500.2500, L100.0100 ####[facility] [address] [place], [place], [address] Gram stainOrdered By: Mercy Flores on 01-25-2025 Microscopic observation Gram stain Nom (Unsp spec) [facility] H AND P Exam - Hospitaliston 01-25-2025 H&P Exam - Hospitalist [facility] Hematocrit Auto (Bld) [Volum e fraction]Ordered By: Mercy Flores on 01-25-2025 Hematocrit (Bld) [Volume fraction] 28.8 % Low 37-47 [facility] Hemoglobin measurementOrdere d By: Mercy Flores on 01-25-2025 Hemoglobin (Bld) [Mass/Vol] 8.4 g/dL Low 12.0-15.0 [facility] Hyaline casts LM.LPF (Urine sed) [#/Area]Ordered By: Andriy Guzmán on 01-25-2025 Hyaline casts (Urine sed) [#/Area] 10 /[LPF] 0-5 [facility] Immature granulocytes/100 WB C Auto (Bld)Ordered By: Mercy Flores on 01-25-2025 Immature granulocytes/100 WBC (Bld) 0.700 % 0.0-0.9 [facility] Influenza virus A and B and SARS-CoV-2 (COVID-19) and Respiratory syncytial virus RNAOrdered By: Mercy Flores on 01-25-2025 SARS-CoV-2 (COVID-19) RNA ASPEN+probe Ql (Unsp spec) [facility] Ketones Test strip Ql (U)Ord ered By: Andriy Ramirez on 01-25-2025 Ketones Ql (U) 5 mg/dl High Negative [facility] L501.4021on 01-25-2025 Trop T High Sen 38 ng/L High <=14 [facility] Comment on above: Performed By: #### L 503.7505, L501.4021, L503.6005 ####[facility] [address] [place], [address] Lactic Acidon 01-25-2025 Lactate [Moles/Vol] 1.9 mmol/L Normal 0.0-2.0 [facility] Comment on above: Order Comment: Y Performed By: #### L 503.7505, L501.4021, L503.6005 ####[facility] [address] [place], [address] Legionella Antigen Urineon 1 LEGU Normal [facility] Comment on above: Performed By: #### M 300.4600, M300.4500 ####[facility] [address] [place], [address] Liver Profileon 01-25-2025 Albumin [Mass/Vol] 4.5 g/dL Normal 3.4-4.8 [facility] Comment on above: Performed By: #### L 501.2300, L501.5200, L500.3400 ####[facility] [address] [place], [address] ALK PHOS 57 U/L Normal 35-104 [facility] Comment on above: Performed By: #### L 501.2300, L501.5200, L500.3400 ####[facility] [address] [place], [address] ALT [Catalytic activity/Vol] 20 U/L Normal <=34 [facility] Comment on above: Performed By: #### L 501.2300, L501.5200, L500.3400 ####[facility] [address] [place], [address] AST [Catalytic activity/Vol] 22 U/L Normal <=31 [facility] Comment on above: Performed By: #### L 501.2300, L501.5200, L500.3400 ####[facility] [address] [place], [address] Bilirubin [Mass/Vol] 0.34 mg/dL Normal 0.00-1.30 [facility] Comment on above: Performed By: #### L 501.2300, L501.5200, L500.3400 ####[facility] [address] [place], [address] Bilirubin.direct [Mass/Vol] 0.17 mg/dL Normal 0.00-0.30 [facility] Comment on above: Performed By: #### L 501.2300, L501.5200, L500.3400 ####[facility] [address] [place], [address] Globulin (S) [Mass/Vol] 2.2 g/dL Normal 2.2-4.2 [facility] Comment on above: Performed By: #### L 501.2300, L501.5200, L500.3400 ####[facility] [address] [place], [address] T PROT 6.7 g/dL Normal 5.9-8.4 [facility] Comment on above: Performed By: #### L 501.2300, L501.5200, L500.3400 ####[facility] [address] [place], [address] M100.678on 01-25-2025 M100.678 Pending SARS-CoV-2 (COVID 19) Negative INFLUENZA A Negative INFLUENZA B Negative RSV PCR Negative Normal [facility] Comment on above: Performed By: #### M 100.678 ####[facility] [address] [place], [address] MCV (mean corpuscular volume ) determinationOrdered By: Mercy Flores on 01-25-2025 MCV (RBC) [Entitic vol] 81.8 fL 81-99 [facility] Magnesiumon 01-25-2025 Magnesium [Mass/Vol] 1.8 mg/dL Normal 1.5-2.2 [facility] Comment on above: Performed By: #### L 501.2300, L501.5200, L500.3400 ####[facility] [address] [facility] [place], [place], [address] Magnesium measurement (mass/ volume)Ordered By: Alessandro Palma on 01-25-2025 Magnesium (Unsp spec) [Mass/Vol] 1.8 mg/dL 1.5-2.2 [facility] Mean corpuscular hemoglobin (MCH) determinationOrdered By: Mercy Flores on 01-25-2025 MCH (RBC) [Entitic mass] 23.9 pg Low 27.0-32.0 [facility] Measurement, pHOrdered By: Patrick Flores on 01-25-2025 pH (Unsp spec) 7.51 [pH] High 7.35-7.45 [facility] Microbial respiratory cultur eOrdered By: Mercy Flores on 01-25-2025 Microorganism identified Cx Nom (Unsp spec) Pseudomonas aeruginosa Abnormal [facility] Monocyte percentageOrdered B y: Mercy Flores on 01-25-2025 Monocytes/100 WBC (Bld) 11.0 % High 0-10 [facility] Mucus LM Ql (Urine sed)Order ed By: Andriy Guzmán on 01-25-2025 Mucus Ql (Urine sed) 0 SEEN /hpf [facility] Natriuretic peptide.B prohor sharee N-Terminal [Mass/volume] in Serum or PlasmaOrdered By: Mercy Flores on 01-25-2025 Natriuretic peptide.B prohormone N-Terminal [Mass/Vol] 1192 pg/mL High <900 [facility] Neutrophil percentageOrdered By: Mercy Flores on 01-25-2025 Neutrophils/100 WBC (Bld) 74.3 % High 47-70 [facility] Nitrite Test strip Ql (U)Ord ered By: Andriy Guzmán on 01-25-2025 Nitrite Ql (U) Negative Negative [facility] No Panel InformationOrdered By: Mercy Flores on 01-25-2025 ART [facility] L Brach [facility] AC [facility] Adult Vent [facility] 400.0 mL [facility] 16 [facility] 5 [facility] No Panel InformationOrdered By: Alessandro Palma on 01-25-2025 22 U/L <32 [facility] Phosphoruson 01-25-2025 Phosphate [Mass/Vol] 4.0 mg/dL Normal 2.7-4.5 [facility] Comment on above: Performed By: #### L 501.2300, L501.5200, L500.3400 ####[facility] [address] [place], [address] Platelet countOrdered By: Naun Flores on 01-25-2025 Platelets (Bld) [#/Vol] 315 10*3/uL 150-450 [facility] Potassium measurement (mass/ volume)Ordered By: Mercy Flores on 01-25-2025 Potassium (Unsp spec) [Mass/Vol] 3.5 mmol/L 3.3-5.1 [facility] Pro- Brain NATRIURETIC PEPTI Vicente 01-25-2025 Natriuretic peptide B (Bld) [Mass/Vol] 1192 pg/mL High <=900 [facility] Comment on above: Result Comment: Hear t Failure Unlikely: < 300 pg/mLHeart Failure Likely< 50 Years: > 450 pg/mL50-75 Years: > 900 pg/mL>75 Years: > 1800 pg/mL Performed By: #### L 503.7505, L501.4021, L503.6005 ####[facility] [address] [place], [place], [address] Protein Test strip Ql (U)Ord ered By: Andriy Guzmán on 01-25-2025 Protein Ql (U) 500 mg/dl High Negative [facility] RBC Auto (Bld) [#/Vol]Ordere d By: Mercy Flores on 01-25-2025 RBC (Bld) [#/Vol] 3.52 10*6/uL Low 4.2-5.4 [facility] Serum creatinine measurement (mass/volume)Ordered By: Mercy Flores on 01-25-2025 Creatinine [Mass/Vol] 0.63 mg/dL Low 0.70-1.20 [facility] Comment on above: Performed By: #### L 500.2500, L100.0100 ####[facility] [address] [place], [address] Serum globulin measurementOr dered By: Alessandro Palma on 01-25-2025 Globulin (S) [Mass/Vol] 2.2 g/dL 2.2-4.2 [facility] Serum glucose measurement (m ass/volume)Ordered By: Mercy Flores on 01-25-2025 Glucose [Mass/Vol] 115 mg/dL High 70-99 [facility] Comment on above: Performed By: #### L 500.2500, L100.0100 ####[facility] [address] [place], [address] Serum or plasma alanine retana otransferase (ALT) measurementOrdered By: Alessandro Palma on 01-25-2025 ALT [Catalytic activity/Vol] 20 U/L <35 [facility] Serum or plasma albumin kadi urement (mass/volume)Ordered By: Alessandro Palma on 01-25-2025 Albumin [Mass/Vol] 4.5 g/dL 3.4-4.8 [facility] Serum or plasma alkaline renetta sphatase measurementOrdered By: Alessandro Palma on 01-25-2025 ALP [Catalytic activity/Vol] 57 U/L 35-104 [facility] Serum or plasma calcium kadi urement (mass/volume)Ordered By: Mercy Flores on 01-25-2025 Calcium [Mass/Vol] 9.0 mg/dL Normal 7.6-11.0 [facility] Comment on above: Performed By: #### L 500.2500, L100.0100 ####[facility] [address] [place], [address] Serum or plasma creatine kin ase activityOrdered By: Mercy Flores on 01-25-2025 CK [Catalytic activity/Vol] 77 U/L 24-195 [facility] Serum or plasma urea nitroge n measurement (mass/volume)Ordered By: Mercy Flores on 01-25-2025 Urea nitrogen [Mass/Vol] 31 mg/dL High 4-19 [facility] Comment on above: Performed By: #### L 500.2500, L100.0100 ####[facility] [address] [place], [address] Sodium levelOrdered By: Sandrita Flores on 01-25-2025 Sodium [Moles/Vol] 137 mmol/L Normal 133-145 [facility] Comment on above: Performed By: #### L 500.2500, L100.0100 ####[facility] [address] [place], [address] Squamous epithelial cells de tection in urine sediment by light microscopyOrdered By: Andriy Guzmán on 01-25-2025 Epithelial cells.squamous LM Ql (Urine sed) 0 SEEN /hpf 5-10 [facility] Strep pneumoniae Antig(UR,CS F)on 01-25-2025 STPAG Normal [facility] Comment on above: Performed By: #### M 300.4600, M300.4500 ####[facility] [address] [place], [address] Total carbon dioxide measure mentOrdered By: Mercy Flores on 01-25-2025 CO2 [Moles/Vol] 48 mmol/L [facility] Total proteinOrdered By: Eliza kasandra Louie on 01-25-2025 Protein [Mass/Vol] 6.7 g/dL 5.9-8.4 [facility] Triglycerideson 01-25-2025 Triglyceride [Mass/Vol] 135 mg/dL Normal [facility] Comment on above: Order Comment: Comme nts: DC when propofol is d/c'dDC when propofol is d/c'd Result Comment: The drugs N-Acetylcysteine and Metamizole may falselydepress this assay.Normal range: <150 mg/dLBorderline High: 150-199 mg/dLHigh: 200-499 mg/dLVery High: >500 mg/dL Performed By: #### L 501.5000, L501.3620 ####[facility] [address] [place], [address] Troponin T HS 2 HRon 025 Trop T High Sen 31 ng/L High <=14 [facility] Comment on above: Performed By: #### L 499.0042 ####[facility] [address] [place], [address] Troponin T HS 4 HRon 025 Trop T High Sen Normal <=14 [facility] Comment on above: Result Comment: Canc elled via OM: Order cancelled - Patient discharged Performed By: #### L 499.0043 ####[facility] [address] [place], [address] Troponin T.cardiac [Mass/vol ume] in Serum or Plasma by High sensitivity methodOrdered By: Mercy Flores on 01-25-2025 Troponin T.cardiac High sensitivity method [Mass/Vol] 31 ng/L High <14 [facility] Troponin T.cardiac High sensitivity method [Mass/Vol] 38 ng/L High <14 [facility] Urinalysis, Completeon 01-25 BACTERIA 3+ /hpf Normal None Seen [facility] Comment on above: Order Comment: COLLE CTOR TO SPECIFY Performed By: #### L 400.0001 ####[facility] [address] [place], [address] CAST,HYALINE 10-25 SEEN Normal 0-5 [facility] Comment on above: Order Comment: COLLE CTOR TO SPECIFY Performed By: #### L 400.0001 ####[facility] [address] [place], [address] RBC 0-5 SEEN Normal 0-5 [facility] Comment on above: Order Comment: CHRISTIANNE CTOR TO SPECIFY Performed By: #### L 400.0001 ####[facility] [address] [place], [address] WBC 0-5 SEEN Normal 0-5 [facility] Comment on above: Order Comment: CHRISTIANNE CTOR TO SPECIFY Performed By: #### L 400.0001 ####[facility] [address] [place], [address] EPI,SQUAMOUS 0 SEEN Normal 5-10 [facility] Comment on above: Order Comment: CHRISTIANNE CTOR TO SPECIFY Performed By: #### L 400.0001 ####[facility] [address] [place], [address] Mucus Ql (Urine sed) 0 SEEN Normal [facility] Comment on above: Order Comment: CHRISTIANNE CTOR TO SPECIFY Performed By: #### L 400.0001 ####[facility] [address] [place], [address] Urine Legionella pneumophila antigen detectionOrdered By: Alessandro Palma on 01-25-2025 L. pneumophila Ag Ql (U) [facility] Urine clarityOrdered By: Spencer on 01-25-2025 Clarity (U) Sl. Cloudy Clear [facility] Urine color determinationOrd ered By: Andriy Guzmán on 01-25-2025 Color (U) Yellow Yellow [facility] Urine glucose detectionOrder ed By: Andriy Guzmán on 01-25-2025 Glucose Ql (U) Normal mg/dl Normal [facility] Urine leukocyte esterase det ection by dipstickOrdered By: Andriy Guzmán on 01-25-2025 Leukocyte esterase Test strip Ql (U) Negative Negative [facility] Urine pHOrdered By: Andriy cooper on 01-25-2025 pH (U) 6.0 [pH] 5.0 - 8.0 [facility] Urine sediment bacteria coun t by microscopy (number/high power field)Ordered By: Andriy Guzmán on 01-25-2025 Bacteria LM.HPF (Urine sed) [#/Area] 3 /[HPF] None Seen [facility] Urine specific gravity measu rementOrdered By: Andriy Guzmán on 01-25-2025 Specific gravity (U) [Rel density] 1.025 1.002-1.030 [facility] Urine urobilinogen measureme ntOrdered By: Andriy Guzmán on 01-25-2025 Urobilinogen Ql (U) Normal mg/dl Normal [facility] White blood cell (WBC) count Ordered By: Mercy Flores on 01-25-2025 WBC (Bld) [#/Vol] 12.2 10*3/uL High 4.4-11.0 [facility] White blood cell countOrdere d By: Andriy Guzmán on 01-25-2025 White blood cell count 0-5 SEEN /hpf 0-5 [facility] 36on 01-23-2025 36 Spoke with patient and she scheduled a dental appt on January 30 at [facility], will plan to follow-up after that [facility] DENIA GONZALE[facility] ([id number]) 1955 F Date Time Provider Department 01/23/25 YOSEPH FALL During your visit today, we recorded the following information about you: Martínez Louie RN 01/23/2025 1:12 PM Signed Rafa- [facility]- reporting SN POC: will extend SN to 1 x week for 3 weeks. No call back needed. FYI: pt reports pain level at 20/10, pt is anxious, pt has an appt with palliative care next week for assessment. Allergies As of Date: 01/23/2025 (No Known Allergies) Date Reviewed: 01/22/2025 Reviewed by: Gregor Fernandez APRN.TOE LINING CLOSER - Fully Assessed Reason for Visit: [facility] SN POC [Other] Prescriptions as of 01/23/2025 - doxycycline hyclate (VIBRAMYCIN) 100 mg capsule Take 1 capsule by mouth two times a day for [...] a day as needed for anxiety. - busPIRone (BUSPAR) 10 mg tablet Take [...] two times a day with meals. - nystatin (MYCOSTATIN) 100,000 unit/mL suspension Take [...] directed. Dx: COPD J44.9 - Nebulizer Accessories [facility] Mask and supplies as needed - PULSE OXIMETER [facility] Use as directed to check oxygen saturation level - ammonium lactate (AMLACTIN) 12 % lotion Apply 1 application to affected area as needed for Dry Skin. - losartan (COZAAR) 50 mg tablet Take 0.5 tablets by mouth once daily. - OXYGEN, HOME THERAPY, 2.5 L/min by Nasal Cannula route continuous. Use as directred - Disposable Gloves (DISPOSABLE LATEX-FREE GLOVES) [facility] 1 Box once every month. ICD 10: [...] be starting Problem List As Of Date 01/23/2025 Noted Resolved Other and unspecified alcohol dependence, unspe* 08/11/2018 LUNG CANCER [C34.10] 04/13/2005 06/27/2016 MALIG NEOPLASM BRONCH/LUNG NOS [C34.90] 12/08/2006 DYSTHYMIC DISORDER [F34.1] TOBACCO USE DISORDER [F17.200] 08/21/2005 Stage 3 severe COPD by GOLD classification ([facility]*09/28/2005 Asthma [J45.909] GENERAL OSTEOARTHROSIS [M15.9] Essential hypertension, benign (more content not included)... [facility] DEN[facility]ON[facility]ALE[facility] ([id number]) 1955 F Date Time Provider Department 01/23/25 GREGOR FERNANDEZ During your visit today, we recorded the following information about you: Joceline Romero 01/23/2025 11:10 AM Signed Denia Gonzalez('s) daughter: Sinan is calling Gregor Fernandez APRN.CNP today regarding Pain and Patient Update. Daughter stated patient keeps having hot and cold flashes. I heard the patient yell out "I'm in so much pain and can't take it." Sinan thinks she should go to hospital. They are looking for advice. Patient has been identified by name and birthdate. Requesting response back: call on cell [phone] Joceline Romero January 23, 2025 Mikayla Broussard RN 01/23/2025 11:21 AM Signed Care Coordination Triage Note [facility] [place] Situation: Patient reports Pain--Back or Spine , chronic, hot and cold sensations Background: Stage 3 severe COPD by GOLD classification 3. Chronic low back pain with sciatica, [...] Dr. Fall to explore referral to a roof painter. This patient does not currently meet our departmental criteria for assuming pain management. As such, I recommend consulting pain management for management of their chronic pain. Assessment: Worsening of severe back pain. Crying out at times. Hot and cold flashes per patient and daughter, Symontee. They are considering calling 911 now for her severe pain. Recommendations: Per Gregor Fernandez CNP , patient directed to: Emergency Room due to the issue being urgent. Educated patient and daughter that patient either needs to follow up with PCP for severe chronic back pain or be evaluated in the ED. Daughter verbalized understanding. This patient does not currently meet our departmental criteria for assuming pain management. Mikayla Broussard RNCC Motor Vehicle License Clerk January 23, 2025 11:17 AM Allergies As of Date: 01/23/2025 (No Known Allergies) Date Reviewed: 01/22/2025 Reviewed by: Gregor Fernandez APRN.[place] - Fully Assessed Reason for Visit: Patient Update [1234] Prescriptions as of 01/23/2025 - doxycycline hyclate (VIBRAMYCIN) 100 mg capsule Take 1 capsule by mouth two times a day for [...] a day as needed for anxiety. - busPIRone (BUSPAR) 10 mg tablet Take [...] two times a day with meals. - nystatin (MYCOSTATIN) 100,000 unit/mL suspension Take 5 mL by mouth four times daily. 1tsp swish in mouth for several minutes, then swallow (or expectorate) 4 times daily until gone. - sertraline (ZOLOFT) 100 mg tablet Take 2 tablets by mouth once daily. - Cholecalciferol, Vitamin D3, 50 mcg (2,000 unit) cap Take 1 capsule by mouth once daily. - o (more content not included)... [facility] Telephone (FAMPWS) CARLOSDENIA ([id number]) 1955 F Date Time Provider Department 01/22/25 [facility] During your visit today, we recorded the following information about you: Brynn Watson LPN 01/22/2025 10:09 AM Signed Breanna from [facility] Home Health Supercharger Mechanic calling patient home health aide called her asking for an order for standard Cane to be faxed to [facility]. Fax number is [phone]. Pending order. Please advise Sukhi Marrero RN 01/22/2025 10:44 AM Signed Daughter In Law (Sinan) calls to request provider clarify hydroxyzine order. Patient has order for hydoroxyzine tablets and capsules [facility] until provider cancels one of them. Patient has been taking the hydroxyzine 25 mg capsule by mouth four times daily as needed and requesting for the three times a day tablet to be discontinued. Sinan also asking if provider would order xanax for patient until seen by palliative care. Patient has a video appointment tomorrow 01/23/2025 at 9 am with palliative medicine. See below for request for cane. KAREN Barney Mark D, MD 01/22/2025 2:53 PM Signed OK for cane; order printed OK to discontinue the tid prn hydroxyzine order I am not able to order Xanax since she is on hydrocodone MD Zaki Chopra Kathryn, MA 01/22/2025 5:32 PM Addendum Message left for Sinan to call back. Order for cane faxed to [facility]. Magalie Anguiano RN 01/22/2025 7:51 PM Signed Pt called and is notified of providers message and instructions. She voices understanding. Magalie Anguiano RN Allergies As of Date: 01/22/2025 (No Known Allergies) Date Reviewed: 11/22/2024 Reviewed by: Gregor Fernandez APRN.TOE LINING CLOSER - Fully Assessed Reason for Visit: Orders [681] Primary Visit Diagnosis:Generalized osteoarthrosis, involving multiple sites [M15.9] Other Visit Diagnosis:Chronic low back pain with sciatica, sciatica laterality unspecified, unspecified back pain laterality [M54.40, G89.29] Order(s):DME SUPPLY OR ACCESSORY, NOS [[id number]] Order #: [id number] Prescriptions as of 01/22/2025 - doxycycline hyclate (VIBRAMYCIN) 100 mg capsule Take 1 capsule by mouth two times a day for [...] a day as needed for anxiety. - busPIRone (BUSPAR) 10 mg tablet Take [...] two times a day with meals. - nystatin (MYCOSTATIN) 100,000 unit/mL suspension Take [...] Polacrilex [address] 1 Lozenge (more content not included)... Normal [facility] Telephone (INTMWS) DENIA GONZALEZ ([id number]) 1955 F Date Time Provider Department 01/22/25 YOSEPH FALL During your visit today, we recorded the following information about you: Ban Villafana LPN 01/22/2025 2:40 PM Signed Covermymeds PA rec'. This was completed via my chart. Prior authorization approved Payer: [employer] [phone] Note from payer: CaseId:[id number];Stat us:Approved;Review Type:Prior Auth;Coverage Start Date:12/23/2024;Cover age End Date:01/22/2026; Approval Details Authorized from December 23, 2024 to January 22, 2026 Electronic appeal: Not supported Prior auth initiated by: Ban Villafana LPN View History Medication Being Authorized hydrOXYzine pamoate (VISTARIL) 25 mg capsule Take 1 capsule by mouth four times a day as needed for anxiety. Dispense: 30 capsule Refills: 2 Start: 01/09/2025 Class: Normal This order has been released to its destination. To be filled at: [address] [place] [address] [address] [facility] - [phone] Pharmacy notified. Allergies As of Date: 01/22/2025 (No Known Allergies) Date Reviewed: 11/22/2024 Reviewed by: Gregor Fernandez APRN.TOE LINING CLOSER - Fully Assessed Reason for Visit: Insurance Authorization [1693] Prescriptions as of 01/22/2025 - doxycycline hyclate (VIBRAMYCIN) 100 mg capsule Take 1 capsule by mouth two times a day for [...] a day as needed for anxiety. - busPIRone (BUSPAR) 10 mg tablet Take [...] two times a day with meals. - nystatin (MYCOSTATIN) 100,000 unit/mL suspension Take [...] as needed. - Nebulizer and Compressor For [facility] Use as directed. Dx: COPD J44.9 - Nebulizer Accessories [facility] Mask and supplies as needed - PULSE OXIMETER [facility] Use as directed to check oxygen saturation level - ammonium lactate (AMLACTIN) 12 % lotion Apply 1 application to affected area as needed for Dry Skin. - losartan (COZAAR) 50 mg tablet Take 0.5 tablets by mouth once daily. - OXYGEN, HOME THERAPY, 2.5 L/min by Nasal Cannula route continuous. Use as directred - Disposable Gloves (DISPOSABLE LATEX-FREE GLOVES) [facility] 1 Box once every month. ICD 10: M15.9, J44.9, M54.40 - Incontinence Pad, Liner, Disp (POISE PADS) pads Use pads as directed. Dx: N39.46 - COMPOUNDED PRESCRIPTION BLOOD PRESSURE CUFF FOR HOME USE. DX: HYPERTENSION I10. AUTO (more content not included)... Normal [facility] 01-18-2025 36 PC to patient. LMOM to call office back. Normal [place] 7332101-17-2025 36 Spoke with family member on phone, patient currently napping. Family member will have patient call valve clinic back to discuss [facility]-17-[facility] DENIA GONZALE[facility] ([id number]) 1955 F Date Time Provider Department 01/17/25 YOSEPH FALL [facility] During your visit today, we recorded the following information about you: Martínez Louie, RN 01/17/2025 9:21 AM Signed [facility]- reports pt lives primarily on the first floor of her home without access to bathroom. Asking pcp to send order to [facility] for a Bedside Commode. Pended order. Yoseph Fall MD 01/18/2025 3:19 PM Signed Order printed; OK to fax to [facility] as requested MD Anaya Chopra Helen E, LPN 01/18/2025 3:58 PM Signed Order faxed to [facility]. Yasmin Julien LPN Allergies As of Date: 01/17/2025 (No Known Allergies) Date Reviewed: 11/22/2024 Reviewed by: Gregor Fernandez APRN.TOE LINING CLOSER - Fully Assessed Reason for Visit: Bedside Commode order [Other] Primary Visit Diagnosis:Stage 3 severe COPD by GOLD classification (HCC) [J44.9] Other Visit Diagnoses:Generalized osteoarthrosis, involving multiple sites [M15.9] Chronic respiratory failure with hypoxia (HCC) [J96.11] Obstructive chronic bronchitis with exacerbation (HCC) [J44.1] Order(s):COMMODE CHAIR, STATIONARY [[id number]] Order #: [id number] Prescriptions as of 01/18/2025 - doxycycline hyclate (VIBRAMYCIN) 100 mg capsule Take 1 capsule by mouth two times a day for [...] two times a day with meals. - nystatin (MYCOSTATIN) 100,000 unit/mL suspension Take [...] directed. Dx: COPD J44.9 - Nebulizer Accessories [facility] Mask and supplies as needed - PULSE OXIMETER [facility] Use as directed to check oxygen saturation level - ammonium lactate (AMLACTIN) 12 % lotion Apply 1 application to affected area as needed for Dry Skin. - losartan (COZAAR) 50 mg tablet Take 0.5 tablets by mouth once daily. - OXYGEN, HOME THERAPY, 2.5 L/min by Nasal Cannula route continuous. Use as directred - Disposable Gloves (DISPOSABLE LATEX-FREE GLOVES) [facility] 1 Box once every month. ICD 10: M15.9, J44.9, M54.40 - Incontinence Pad, Liner, Disp (POISE PADS) pads Use pads as directed. Dx: N39.46 - COMPOUNDED PRESCRIPTION BLOOD PRESSURE CUFF FOR HOME USE. DX: HYPERTENSION (more content not included)... Normal [facility] 01-16-2025 [facility] Telephone (FAMWS) DENIA GONZALEZ ([id number]) 1955 F Date Time Provider Department 01/16/25 [facility] During your visit today, [...] HH nurse needs called back with information Yoseph Fall MD 01/18/2025 3:21 PM Signed OK for doxycycline instead of levaquin. MD Eufemia Chopra Mark D, MD 01/18/2025 3:21 PM Signed Addended by: YOSEPH FALL on: 01/18/2025 03:21 PM Modules accepted: Magalie Moscoso RN 01/18/2025 3:30 PM Signed Called and left a detailed voicemail notifying Rafa from [facility] of providers message. Clinic phone number was left in case he had any questions. Magalie Anguiano RN Allergies As of Date: 01/16/2025 (No Known Allergies) Date Reviewed: 11/22/2024 Reviewed by: Gregor Fernandez APRN.TOE LINING CLOSER - Fully Assessed Reason for Visit: Patient Update [1234] Order(s):levoFLOXacin (LEVAQUIN) 500 mg tabletTake 1 tablet by mouth once daily for 7 days.Disp: 7 tabletRfl: 0 doxycycline hyclate (VIBRAMYCIN) 100 mg capsuleTake 1 capsule by mouth two times a day for 10 days.Disp: 20 capsuleRfl: 0 Prescriptions as of 01/18/2025 - doxycycline hyclate (VIBRAMYCIN) 100 mg capsule Take 1 capsule by mouth two times a day for [...] two times a day with meals. - nystatin (MYCOSTATIN) 100,000 unit/mL suspension Take [...] J44.9 - Nebulizer Accessories misc Mask and suppl (more content not included)... Normal [facility] 36on 01-15-2025 36 Labs scanned in [facility] Anion gap in Serum or Plasma Ordered By: Zaria Shea on 01-12-2025 Anion gap [Moles/Vol] 10 mmol/L 5-15 [facility] BUN/creatinine ratioOrdered By: Zaria Shea on 01-12-2025 Urea nitrogen/Creatinine [Mass ratio] 24.6 mg/mg High - [facility] Basic Metabolic Profile (BMP )on 01-12-2025 BUN/CRE 24.6 RATIO High - [facility] Comment on above: Performed By: #### L 500.2500 ####[facility] [address] [place], [address] Calcium [Mass/Vol] 8.6 mg/dL Normal 7.6-11.0 [facility] Comment on above: Performed By: #### L 500.2500 ####[facility] [address] [place], [address] Chloride [Moles/Vol] 90 mmol/L Low 98-108 [facility] Comment on above: Performed By: #### L 500.2500 ####[facility] [address] [place], [address] CO2 [Moles/Vol] 40.6 mmol/L High 21.0-32.0 [facility] Comment on above: Performed By: #### L 500.2500 ####[facility] [address] [place], [address] Creatinine [Mass/Vol] 0.59 mg/dL Low 0.70-1.20 [facility] Comment on above: Performed By: #### L 500.2500 ####[facility] [address] [place], [address] GAP 10 Normal 5-15 [facility] Comment on above: Performed By: #### L 500.2500 ####[facility] [address] [place], [address] GFR/1.73 sq M.predicted among non-blacks MDRD (S/P/Bld) [Vol rate/Area] 98 mL/min/{1.73_m2} Normal >60 [facility] Comment on above: Result Comment: mL/m in/1.73m2 CKD-EPI Creatinine Equation (2020) Performed By: #### L 500.2500 ####[facility] [address] [place], [address] Glucose [Mass/Vol] 87 mg/dL Normal 70-99 [facility] Comment on above: Performed By: #### L 500.2500 ####[facility] [address] [place], [address] Potassium [Moles/Vol] 3.8 mmol/L Normal 3.3-5.1 [facility] Comment on above: Performed By: #### L 500.2500 ####[facility] [address] [place], [address] Sodium [Moles/Vol] 140 mmol/L Normal 133-145 [facility] Comment on above: Performed By: #### L 500.2500 ####[facility] [address] [place], [address] Urea nitrogen [Mass/Vol] 14 mg/dL Normal 4- [facility] Comment on above: Performed By: #### L 500.2500 ####[facility] [address] [place], [address] CNPNon 01-12-2025 CNPN Telephone (FAMPWS) DENIA GONZALEZ ([id number]) 1955 F Date Time Provider Department 01/12/25 YOSEPH FALL [facility] During your visit today, we recorded the following information about you: Padmini Abbott, KAREN 01/12/2025 11:00 AM Signed Fred with [facility] HH calling to report the followin) Patient had recent COPD exacerbation. Is currently coughing up rust colored sputum that pt believes is blood. Pt was off Eliquis recently for a heart cath procedure but has recently resumed it. Reports he had to draw a BMP on pt today for [place] and states that if PCP wishes to add CBC, to let him know and he can have this added on today. 2) Since the recent addition of hydroxyzine to pt's medication regimen, this caused a [id number] alert to be received by them, between [...] Date Reviewed: 11/22/2024 Reviewed by: Gregor Fernandez APRN.TOE [employer]ING CLOSER - Fully Assessed Reason for Visit: [facility] Update [Other] Primary Visit Diagnosis:Essential hypertension, benign [I10] Order(s):COMPLETE BLOOD COUNT AND DIFFERENTIAL [SQCBCDIF] Order #: [id number] FUTURE Prescriptions as of 01/12/2025 - furosemide [...] directed. Dx: COPD J44.9 - Nebulizer Accessories [facility] Mask and supplies as needed - PULSE OXIMETER [facility] Use as directed to check oxygen saturation level - ammonium lactate (AMLACTIN) 12 % lotion Apply (more content not included)... Normal [facility] Carbon dioxide, total [Moles /volume] in Central venous bloodOrdered By: Zaria Shea on 01-12-2025 CO2 [Moles/Vol] 40.6 mmol/L High 21.0-32.0 [facility] Chloride assayOrdered By: Kuldip Junior on 01-12-2025 Chloride [Moles/Vol] 90 mmol/L Low 98-108 [facility] Glomerular filtration rate ( GFR) estimation/1.73 sq m using serum, plasma, or whole bOrdered By: Zaria Shea on 01-12-2025 GFR/1.73 sq M.predicted among non-blacks MDRD (S/P/Bld) [Vol rate/Area] 98 mL/min/{1.73_m2} >60 [facility] Potassium measurement (mass/ volume)Ordered By: Zaria Shea on 01-12-2025 Potassium (Unsp spec) [Mass/Vol] 3.8 mmol/L 3.3-5.1 [facility] Serum creatinine measurement (mass/volume)Ordered By: Zaria Shea on 01-12-2025 Creatinine [Mass/Vol] 0.59 mg/dL Low 0.70-1.20 [facility] Serum glucose measurement (m ass/volume)Ordered By: Zaria Shea on 01-12-2025 Glucose [Mass/Vol] 87 mg/dL 70-99 [facility] Serum or plasma calcium kadi urement (mass/volume)Ordered By: Zaria Shea on 01-12-2025 Calcium [Mass/Vol] 8.6 mg/dL 7.6-11.0 [facility] Serum or plasma urea nitroge n measurement (mass/volume)Ordered By: Zaria Shea on 01-12-2025 Urea nitrogen [Mass/Vol] 14 mg/dL 4-19 [facility] Sodium levelOrdered By: Cedric Shea on 01-12-2025 Sodium [Moles/Vol] 140 mmol/L 133-145 [facility] 36on 01-09-2025 36 Patient is going to have her home nurse draw the BMP on Wednesday01/12/25. I faxed order [phone] and confirmed. Normal [facility] CNPNon 01-09-2025 CNPN Telephone (FAMPWS) DENIA GONZALEZ ([id number]) 1955 F Date Time Provider Department 01/09/25 [facility] visit today, we [...] with reply to response to #1 above. [phone] KAREN Robledo Krystle, RN 01/09/2025 4:44 PM Signed Breanna with [facility] [employer] calls to give update on anxiety. Breanna [...] Date Reviewed: 11/22/2024 Reviewed by: Gregor Fernandez APRN.TO[employer] LINING CLOSER - Fully Assessed Reason for Visit: Medication Request [138] Order(s):hydrOXYzine pamoate (VISTARIL) 25 mg capsuleTake 1 capsule by mouth four times a day as needed for anxiety.Disp: 30 capsuleRfl: 2 Prescriptions as of 01/22/2025 - doxycycline hyclate (VIBRAMYCIN) 100 mg capsule Take 1 capsule by mouth two times a day for [...] two times a day with meals. - nystatin (MYCOSTATIN) 100,000 unit/mL suspension Take [...] Place 1 Lozenge between cheek and gum (more content not included)... Normal [facility] 36on 01-08-2025 36 Spoke with patient, she has BMP lab order and will go to [facility] this week to complete. Patient has not seen a dentist in a number of years, does not have dental insurance. Provided patient number to [facility] in [place], [place] [facility] [phone] to schedule next available appt. Advised patient to call office back with appt date/time, can always see [facility] for expedited work-up. Will schedule CTA and TAVR once dental plan known. [facility] CNPNon 01-08-2025 CNPN Telephone (FAMPWS) DENIA GONZALEZ ([id number]) 1955 F Date Time Provider Department 01/08/25 YOSEPH FALL [facility] During your visit today, we recorded the following information about you: Judy Bliss RN 01/08/2025 10:06 AM Signed Edda from [facility] calls and states that patient was supposed to have PT evaluation last week but was unable to do. Edda asking for a delay in care order for PT. Please review and advise, KAREN Werner Jesse, APRN.[facility] 01/08/2025 11:01 AM Signed Okay for delay in care. Nelson Robert APRN.Martha Paulino MA 01/08/2025 4:09 PM Signed Called and received Edda's identifiable and secure VM. LM with information below from Provider, if questions to contact the office. Martha Baca MA Allergies As of Date: 01/08/2025 (No Known Allergies) Date Reviewed: 11/22/2024 Reviewed by: Gregor Fernandez APRN.[facility] - Fully Assessed Reason for Visit: Delay [...] directed. Dx: COPD J44.9 - Nebulizer Accessories [facility] Mask and supplies as needed - PULSE OXIMETER [facility] Use as directed to check oxygen saturation level - ammonium lactate (AMLACTIN) 12 % lotion Apply 1 application to affected area as needed for Dry Skin. - losartan (COZAAR) 50 mg tablet Take 0.5 tablets by mouth once daily. - OXYGEN, HOME THERAPY, 2.5 L/min by Nasal Cannula route continuous. Use as directred - Disposable Gloves (DISPOSABLE LATEX-FREE GLOVES) [facility] 1 Box once every month. ICD 10: [...] hypertension, benign (more content not included)... Normal [facility] Basic Metabolic Profile (BMP )on 01-06-2025 BUN Normal - [facility] Comment on above: Result Comment: Canc elled via OM: Order cancelled - Patient discharged Performed By: #### L 100.0100, L500.2500 ####[facility] [address] [place], [address] BUN/CRE Normal 10-20 [facility] Comment on above: Result Comment: Canc elled via OM: Order cancelled - Patient discharged Performed By: #### L 100.0100, L500.2500 ####[facility] [address] [place], [address] Calcium Normal 7.6-11.0 [facility] Comment on above: Result Comment: Canc elled via OM: Order cancelled - Patient discharged Performed By: #### L 100.0100, L500.2500 ####[facility] [address] [place], [address] CL Normal 98-108 [facility] Comment on above: Result Comment: Canc elled via OM: Order cancelled - Patient discharged Performed By: #### L 100.0100, L500.2500 ####[facility] [address] [place], [address] CO2 Normal 21.0-32.0 [facility] Comment on above: Result Comment: Canc elled via OM: Order cancelled - Patient discharged Performed By: #### L 100.0100, L500.2500 ####[facility] [address] [place], [address] CREAT,SERUM Normal 0.70-1.20 [facility] Comment on above: Result Comment: Canc elled via OM: Order cancelled - Patient discharged Performed By: #### L 100.0100, L500.2500 ####[facility] [address] [place], [address] eGFR Normal >60 [facility] Comment on above: Result Comment: Canc elled via OM: Order cancelled - Patient discharged Performed By: #### L 100.0100, L500.2500 ####[facility] [address] [place], [address] GAP Normal 5-15 [facility] Comment on above: Result Comment: Canc elled via OM: Order cancelled - Patient discharged Performed By: #### L 100.0100, L500.2500 ####[facility] [address] [place], [address] GLU Normal 70-99 [facility] Comment on above: Result Comment: Canc elled via OM: Order cancelled - Patient discharged Performed By: #### L 100.0100, L500.2500 ####[facility] [address], [address] Potassium Normal 3.3-5.1 [facility] Comment on above: Result Comment: Canc elled via OM: Order cancelled - Patient discharged Performed By: #### L 100.0100, L500.2500 ####[facility] [address] [place], [address] Basic Metabolic Profile (BMP) Normal 133-145 [facility] Comment on above: Result Comment: Canc elled via OM: Order cancelled - Patient discharged Performed By: #### L 100.0100, L500.2500 ####[facility] [address], [address] CBC W/Diff, Automatedon - Absolute Neut Normal 2.0-7.7 [facility] Comment on above: Result Comment: Canc elled via OM: Order cancelled - Patient discharged Performed By: #### L 100.0100, L500.2500 ####[facility] [address] [place], [address] HCT Normal 37-47 [facility] Comment on above: Result Comment: Canc elled via OM: Order cancelled - Patient discharged Performed By: #### L 100.0100, L500.2500 ####[facility] [address], [address] HGB Normal 12.0-15.0 [facility] Comment on above: Result Comment: Canc elled via OM: Order cancelled - Patient discharged Performed By: #### L 100.0100, L500.2500 ####[facility] [address] [place], [address] MCH Normal 27.0-32.0 [facility] Comment on above: Result Comment: Canc elled via OM: Order cancelled - Patient discharged Performed By: #### L 100.0100, L500.2500 ####[facility] [address] [place], [address] MCHC Normal 32-36 [facility] Comment on above: Result Comment: Canc elled via OM: Order cancelled - Patient discharged Performed By: #### L 100.0100, L500.2500 ####[facility] [address] [place], [address] MCV Normal 81-99 [facility] Comment on above: Result Comment: Canc elled via OM: Order cancelled - Patient discharged Performed By: #### L 100.0100, L500.2500 ####[facility] [address] [place], [address] NEUT% Normal 47-70 [facility] Comment on above: Result Comment: Canc elled via OM: Order cancelled - Patient discharged Performed By: #### L 100.0100, L500.2500 ####[facility] [address] [place], [address] PLT Normal 150-450 [facility] Comment on above: Result Comment: Canc elled via OM: Order cancelled - Patient discharged Performed By: #### L 100.0100, L500.2500 ####[facility] [address] [place], [address] RBC Normal 4.2-5.4 [facility] Comment on above: Result Comment: Canc elled via OM: Order cancelled - Patient discharged Performed By: #### L 100.0100, L500.2500 ####[facility] [address] [place], [address] RDW CV Normal 11.6-14.6 [facility] Comment on above: Result Comment: Canc elled via OM: Order cancelled - Patient discharged Performed By: #### L 100.0100, L500.2500 ####[facility] [address] [facility] [place] [address] RDW SD Normal 35.1-43.9 [facility] Comment on above: Result Comment: Canc elled via OM: Order cancelled - Patient discharged Performed By: #### L 100.0100, L500.2500 ####[facility] [address] [facility] [place] [address] WBC Normal 4.4-11.0 [facility] Comment on above: Result Comment: Canc elled via OM: Order cancelled - Patient discharged Performed By: #### L 100.0100, L500.2500 ####[facility] [address] [place], [address] 36on 01-05-2025 36 S/p cath with minima l CAD. Plan CTA and TAVR. Pls advise to see dentist prior to valve intervention. Order placed for CTA and TAVR. Given req for BMP. mm Normal [facility] Anesthesia Noteon 01-05-2025 Anesthesia Note Sedation [...] proceed to administer sedation as planned. Normal [facility] Basic Metabolic Profile (BMP )on 01-05-2025 BUN Normal 4-19 [facility] Comment on above: Result Comment: Canc elled via OM: Order cancelled - Patient discharged Performed By: #### L 100.0100, L500.2500 ####[facility] [address] [place], [address] BUN/CRE Normal 10-20 [facility] Comment on above: Result Comment: Canc elled via OM: Order cancelled - Patient discharged Performed By: #### L 100.0100, L500.2500 ####[facility] [address] [place], [address] Calcium Normal 7.6-11.0 [facility] Comment on above: Result Comment: Canc elled via OM: Order cancelled - Patient discharged Performed By: #### L 100.0100, L500.2500 ####[facility] [address] [place], [address] CL Normal 98-108 [facility] Comment on above: Result Comment: Canc elled via OM: Order cancelled - Patient discharged Performed By: #### L 100.0100, L500.2500 ####[facility] [address] [place], [address] CO2 Normal 21.0-32.0 [facility] Comment on above: Result Comment: Canc elled via OM: Order cancelled - Patient discharged Performed By: #### L 100.0100, L500.2500 ####[facility] [address] [place], [address] CREAT,SERUM Normal 0.70-1.20 [facility] Comment on above: Result Comment: Canc elled via OM: Order cancelled - Patient discharged Performed By: #### L 100.0100, L500.2500 ####[facility] [address] [place], [address] eGFR Normal >60 [facility] Comment on above: Result Comment: Canc elled via OM: Order cancelled - Patient discharged Performed By: #### L 100.0100, L500.2500 ####[facility] [address] [place], [address] GAP Normal 5-15 [facility] Comment on above: Result Comment: Canc elled via OM: Order cancelled - Patient discharged Performed By: #### L 100.0100, L500.2500 ####[facility] [address] [place], [address] GLU Normal 70-99 [facility] Comment on above: Result Comment: Canc elled via OM: Order cancelled - Patient discharged Performed By: #### L 100.0100, L500.2500 ####[facility] [address] [place], [address] Potassium Normal 3.3-5.1 [facility] Comment on above: Result Comment: Canc elled via OM: Order cancelled - Patient discharged Performed By: #### L 100.0100, L500.2500 ####[facility] [address] [place], [address] Basic Metabolic Profile (BMP) Normal 133-145 [facility] Comment on above: Result Comment: Canc elled via OM: Order cancelled - Patient discharged Performed By: #### L 100.0100, L500.2500 ####[facility] [address] [place], [address] CBC W/Diff, Automatedon 09-1 Absolute Neut Normal 2.0-7.7 [facility] Comment on above: Result Comment: Canc elled via OM: Order cancelled - Patient discharged Performed By: #### L 100.0100, L500.2500 ####[facility] [address] [place], [address] HCT Normal 37-47 [facility] Comment on above: Result Comment: Canc elled via OM: Order cancelled - Patient discharged Performed By: #### L 100.0100, L500.2500 ####[facility] [address] [place], [address] HGB Normal 12.0-15.0 [facility] Comment on above: Result Comment: Canc elled via OM: Order cancelled - Patient discharged Performed By: #### L 100.0100, L500.2500 ####[facility] [address] [place], [address] MCH Normal 27.0-32.0 [facility] Comment on above: Result Comment: Canc elled via OM: Order cancelled - Patient discharged Performed By: #### L 100.0100, L500.2500 ####[facility] [address] [place], [address] MCHC Normal 32-36 [facility] Comment on above: Result Comment: Canc elled via OM: Order cancelled - Patient discharged Performed By: #### L 100.0100, L500.2500 ####[facility] [address] [place], [address] MCV Normal 81-99 [facility] Comment on above: Result Comment: Canc elled via OM: Order cancelled - Patient discharged Performed By: #### L 100.0100, L500.2500 ####[facility] [address] [place], [address] NEUT% Normal 47-70 [facility] Comment on above: Result Comment: Canc elled via OM: Order cancelled - Patient discharged Performed By: #### L 100.0100, L500.2500 ####[facility] [address] [place], [address] PLT Normal 150-450 [facility] Comment on above: Result Comment: Canc elled via OM: Order cancelled - Patient discharged Performed By: #### L 100.0100, L500.2500 ####[facility] [address] [place], [address] RBC Normal 4.2-5.4 [facility] Comment on above: Result Comment: Canc elled via OM: Order cancelled - Patient discharged Performed By: #### L 100.0100, L500.2500 ####[facility] [address] [place], [address] RDW CV Normal 11.6-14.6 [facility] Comment on above: Result Comment: Canc elled via OM: Order cancelled - Patient discharged Performed By: #### L 100.0100, L500.2500 ####[facility] [address] [place], [address] RDW SD Normal 35.1-43.9 [facility] Comment on above: Result Comment: Canc elled via OM: Order cancelled - Patient discharged Performed By: #### L 100.0100, L500.2500 ####[facility] [address] [place], [address] WBC Normal 4.4-11.0 [facility] Comment on above: Result Comment: Canc elled via OM: Order cancelled - Patient discharged Performed By: #### L 100.0100, L500.2500 ####[facility] [address] [place], [address] Basic Metabolic Profile (BMP )on 01-04-2025 BUN Normal 4-19 [facility] Comment on above: Result Comment: Canc elled via OM: Order cancelled - Patient discharged Performed By: #### L 100.0100, L500.2500 ####[facility] [address] [place], [address] BUN/CRE Normal 10-20 [facility] Comment on above: Result Comment: Canc elled via OM: Order cancelled - Patient discharged Performed By: #### L 100.0100, L500.2500 ####[facility] [address] [place], [address] Calcium Normal 7.6-11.0 [facility] Comment on above: Result Comment: Canc elled via OM: Order cancelled - Patient discharged Performed By: #### L 100.0100, L500.2500 ####[facility] [address] [place], [address] CL Normal 98-108 [facility] Comment on above: Result Comment: Canc elled via OM: Order cancelled - Patient discharged Performed By: #### L 100.0100, L500.2500 ####[facility] [address], [address] CO2 Normal 21.0-32.0 [facility] Comment on above: Result Comment: Canc elled via OM: Order cancelled - Patient discharged Performed By: #### L 100.0100, L500.2500 ####[facility] [address] [place], [address] CREAT,SERUM Normal 0.70-1.20 [facility] Comment on above: Result Comment: Canc elled via OM: Order cancelled - Patient discharged Performed By: #### L 100.0100, L500.2500 ####[facility] [address], [address] eGFR Normal >60 [facility] Comment on above: Result Comment: Canc elled via OM: Order cancelled - Patient discharged Performed By: #### L 100.0100, L500.2500 ####[facility] [address] [place], [address] GAP Normal 5-15 [facility] Comment on above: Result Comment: Canc elled via OM: Order cancelled - Patient discharged Performed By: #### L 100.0100, L500.2500 ####[facility] [address] [place], [address] GLU Normal 70-99 [facility] Comment on above: Result Comment: Canc elled via OM: Order cancelled - Patient discharged Performed By: #### L 100.0100, L500.2500 ####[facility] [address] [place], [address] Potassium Normal 3.3-5.1 [facility] Comment on above: Result Comment: Canc elled via OM: Order cancelled - Patient discharged Performed By: #### L 100.0100, L500.2500 ####[facility] [address] [place], [address] Basic Metabolic Profile (BMP) Normal 133-145 [facility] Comment on above: Result Comment: Canc elled via OM: Order cancelled - Patient discharged Performed By: #### L 100.0100, L500.2500 ####[facility] [address] [place], [address] CBC W/Diff, Automatedon - Absolute Neut Normal 2.0-7.7 [facility] Comment on above: Result Comment: Canc elled via OM: Order cancelled - Patient discharged Performed By: #### L 100.0100, L500.2500 ####[facility] [address] [place], [address] HCT Normal 37-47 [facility] Comment on above: Result Comment: Canc elled via OM: Order cancelled - Patient discharged Performed By: #### L 100.0100, L500.2500 ####[facility] [address] [place], [address] HGB Normal 12.0-15.0 [facility] Comment on above: Result Comment: Canc elled via OM: Order cancelled - Patient discharged Performed By: #### L 100.0100, L500.2500 ####[facility] [address] [place], [address] MCH Normal 27.0-32.0 [facility] Comment on above: Result Comment: Canc elled via OM: Order cancelled - Patient discharged Performed By: #### L 100.0100, L500.2500 ####[facility] [address] [place], [address] MCHC Normal 32-36 [facility] Comment on above: Result Comment: Canc elled via OM: Order cancelled - Patient discharged Performed By: #### L 100.0100, L500.2500 ####[facility] [address] [place], [address] MCV Normal 81-99 [facility] Comment on above: Result Comment: Canc elled via OM: Order cancelled - Patient discharged Performed By: #### L 100.0100, L500.2500 ####[facility] [address] [place], [address] NEUT% Normal 47-70 [facility] Comment on above: Result Comment: Canc elled via OM: Order cancelled - Patient discharged Performed By: #### L 100.0100, L500.2500 ####[facility] [address] [place], [address] PLT Normal 150-450 [facility] Comment on above: Result Comment: Canc elled via OM: Order cancelled - Patient discharged Performed By: #### L 100.0100, L500.2500 ####[facility] [address] [place], [address] RBC Normal 4.2-5.4 [facility] Comment on above: Result Comment: Canc elled via OM: Order cancelled - Patient discharged Performed By: #### L 100.0100, L500.2500 ####[facility] [address] [place], [address] RDW CV Normal 11.6-14.6 [facility] Comment on above: Result Comment: Canc elled via OM: Order cancelled - Patient discharged Performed By: #### L 100.0100, L500.2500 ####[facility] [address] [place], [address] RDW SD Normal 35.1-43.9 [facility] Comment on above: Result Comment: Canc elled via OM: Order cancelled - Patient discharged Performed By: #### L 100.0100, L500.2500 ####[facility] [address] [place], [address] WBC Normal 4.4-11.0 [facility] Comment on above: Result Comment: Canc elled via OM: Order cancelled - Patient discharged Performed By: #### L 100.0100, L500.2500 ####[facility] [address] [place], [address] 36on 01-03-2025 36 Approval not req per [facility] updated and requested on [employer] [facility] 36 PC to Fred SOOD RN regarding proceeding with heart cath on Wednesday. Verbalized understanding. [facility] 36 Spoke with patient, she is feeling okay after hospital admission and would like to keep heart cath on for 01/05. Will await insurance PA [facility] Basic Metabolic Profile (BMP )on 01-03-2025 BUN Normal 4-19 [facility] Comment on above: Result Comment: Canc elled via OM: Order cancelled - Patient discharged Performed By: #### L 500.2500, L100.0100 ####[facility] [address] [place], [address] BUN/CRE Normal 10-20 [facility] Comment on above: Result Comment: Canc elled via OM: Order cancelled - Patient discharged Performed By: #### L 500.2500, L100.0100 ####[facility] [address] [place], [address] Calcium Normal 7.6-11.0 [facility] Comment on above: Result Comment: Canc elled via OM: Order cancelled - Patient discharged Performed By: #### L 500.2500, L100.0100 ####[facility] [address] [place], [address] CL Normal 98-108 [facility] Comment on above: Result Comment: Canc elled via OM: Order cancelled - Patient discharged Performed By: #### L 500.2500, L100.0100 ####[facility] [address] [place], [address] CO2 Normal 21.0-32.0 [facility] Comment on above: Result Comment: Canc elled via OM: Order cancelled - Patient discharged Performed By: #### L 500.2500, L100.0100 ####[facility] [address] [place], [address] CREAT,SERUM Normal 0.70-1.20 [facility] Comment on above: Result Comment: Canc elled via OM: Order cancelled - Patient discharged Performed By: #### L 500.2500, L100.0100 ####[facility] [address] [place], [address] eGFR Normal >60 [facility] Comment on above: Result Comment: Canc elled via OM: Order cancelled - Patient discharged Performed By: #### L 500.2500, L100.0100 ####[facility] [address] [place], [address] GAP Normal 5-15 [facility] Comment on above: Result Comment: Canc elled via OM: Order cancelled - Patient discharged Performed By: #### L 500.2500, L100.0100 ####[facility] [address] [place], [address] GLU Normal 70-99 [facility] Comment on above: Result Comment: Canc elled via OM: Order cancelled - Patient discharged Performed By: #### L 500.2500, L100.0100 ####[facility] [address] [place], [address] Potassium Normal 3.3-5.1 [facility] Comment on above: Result Comment: Canc elled via OM: Order cancelled - Patient discharged Performed By: #### L 500.2500, L100.0100 ####[facility] [address] [place], [address] Basic Metabolic Profile (BMP) Normal 133-145 [facility] Comment on above: Result Comment: Canc elled via OM: Order cancelled - Patient discharged Performed By: #### L 500.2500, L100.0100 ####[facility] [address] [place], [address] CBC W/Diff, Automatedon 09-1 0-2024 Absolute Neut Normal 2.0-7.7 [facility] Comment on above: Result Comment: Canc elled via OM: Order cancelled - Patient discharged Performed By: #### L 500.2500, L100.0100 ####[facility] [address] [place], [address] HCT Normal 37-47 [facility] Comment on above: Result Comment: Canc elled via OM: Order cancelled - Patient discharged Performed By: #### L 500.2500, L100.0100 ####[facility] [address] [place], [address] HGB Normal 12.0-15.0 [facility] Comment on above: Result Comment: Canc elled via OM: Order cancelled - Patient discharged Performed By: #### L 500.2500, L100.0100 ####[facility] [address] [place], [address] MCH Normal 27.0-32.0 [facility] Comment on above: Result Comment: Canc elled via OM: Order cancelled - Patient discharged Performed By: #### L 500.2500, L100.0100 ####[facility] [address] [place], [address] MCHC Normal 32-36 [facility] Comment on above: Result Comment: Canc elled via OM: Order cancelled - Patient discharged Performed By: #### L 500.2500, L100.0100 ####[facility] [address] [place], [address] MCV Normal 81-99 [facility] Comment on above: Result Comment: Canc elled via OM: Order cancelled - Patient discharged Performed By: #### L 500.2500, L100.0100 ####[facility] [address] [place], [address] NEUT% Normal 47-70 [facility] Comment on above: Result Comment: Canc elled via OM: Order cancelled - Patient discharged Performed By: #### L 500.2500, L100.0100 ####[facility] [address] [place], [address] PLT Normal 150-450 [facility] Comment on above: Result Comment: Canc elled via OM: Order cancelled - Patient discharged Performed By: #### L 500.2500, L100.0100 ####[facility] [address] [place], [address] RBC Normal 4.2-5.4 [facility] Comment on above: Result Comment: Canc elled via OM: Order cancelled - Patient discharged Performed By: #### L 500.2500, L100.0100 ####[facility] [address] [place], [address] RDW CV Normal 11.6-14.6 [facility] Comment on above: Result Comment: Canc elled via OM: Order cancelled - Patient discharged Performed By: #### L 500.2500, L100.0100 ####[facility] [address] [place], [address] RDW SD Normal 35.1-43.9 [facility] Comment on above: Result Comment: Canc elled via OM: Order cancelled - Patient discharged Performed By: #### L 500.2500, L100.0100 ####[facility] [address] [place], [place], [address] WBC Normal 4.4-11.0 [facility] Comment on above: Result Comment: Bety munroe via OM: Order cancelled - Patient discharged Performed By: #### L 500.2500, L100.0100 ####[facility] [address] [place], [address] [facility] DEN[facility]ON[facility]ALE[facility] ([id number]) 1955 F Date Time Provider Department 01/03[facility] During your visit today, we recorded the following information about you: Judy Bliss RN 01/03/2025 8:35 AM Signed Breanna SW from [facility] calls and is asking for delay in care till next week. Breanna cannot see patient till next week. KAREN Werner Jesse, APRN.[facility] 01/03/2025 11:22 AM Signed Noted. Okay with delay in care. Nelson Robert APRN.[facility] Judy Bliss RN 01/03/2025 11:23 AM Signed Breanna notified of below. Voices understanding. Judy Bliss RN Allergies As of Date: 01/03/2025 (No Known Allergies) Date Reviewed: 11/22/2024 Reviewed by: Gregor Fernandez APRN.[employer] - Fully Assessed Reason for Visit: Delay [...] directed. Dx: COPD J44.9 - Nebulizer Accessories [facility] Mask and supplies as needed - PULSE OXIMETER [facility] Use as directed to check oxygen saturation level - ammonium lactate (AMLACTIN) 12 % lotion Apply 1 application to affected area as needed for Dry Skin. - losartan (COZAAR) 50 mg tablet Take 0.5 tablets by mouth once daily. - OXYGEN, HOME THERAPY, 2.5 L/min by Nasal Cannula route continuous. Use as directred - Disposable Gloves (DISPOSABLE LATEX-FREE GLOVES) [facility] 1 Box once every month. ICD 10: [...] Back p (more content not included)... Normal [facility] Basic Metabolic Profile (BMP )on 01-02-2025 BUN Normal 4-19 [facility] Comment on above: Result Comment: Canc elled via OM: Order cancelled - Patient discharged Performed By: #### L 500.2500, L100.0100 ####[facility] [address] [place], [address] BUN/CRE Normal 10-20 [facility] Comment on above: Result Comment: Canc elled via OM: Order cancelled - Patient discharged Performed By: #### L 500.2500, L100.0100 ####[facility] [address] [place], [address] Calcium Normal 7.6-11.0 [facility] Comment on above: Result Comment: Canc elled via OM: Order cancelled - Patient discharged Performed By: #### L 500.2500, L100.0100 ####[facility] [address] [place], [address] CL Normal 98-108 [facility] Comment on above: Result Comment: Canc elled via OM: Order cancelled - Patient discharged Performed By: #### L 500.2500, L100.0100 ####[facility] [address] [place], [address] CO2 Normal 21.0-32.0 [facility] Comment on above: Result Comment: Canc elled via OM: Order cancelled - Patient discharged Performed By: #### L 500.2500, L100.0100 ####[facility] [address] [place], [address] CREAT,SERUM Normal 0.70-1.20 [facility] Comment on above: Result Comment: Canc elled via OM: Order cancelled - Patient discharged Performed By: #### L 500.2500, L100.0100 ####[facility] [address] [place], [address] eGFR Normal >60 [facility] Comment on above: Result Comment: Canc elled via OM: Order cancelled - Patient discharged Performed By: #### L 500.2500, L100.0100 ####[facility] [address] [place], [address] GAP Normal 5-15 [facility] Comment on above: Result Comment: Canc elled via OM: Order cancelled - Patient discharged Performed By: #### L 500.2500, L100.0100 ####[facility] [address] [place], [address] GLU Normal 70-99 [facility] Comment on above: Result Comment: Canc elled via OM: Order cancelled - Patient discharged Performed By: #### L 500.2500, L100.0100 ####[facility] [address] [place], [address] Potassium Normal 3.3-5.1 [facility] Comment on above: Result Comment: Canc elled via OM: Order cancelled - Patient discharged Performed By: #### L 500.2500, L100.0100 ####[facility] [address] [place], [address] Basic Metabolic Profile (BMP) Normal 133-145 [facility] Comment on above: Result Comment: Canc elled via OM: Order cancelled - Patient discharged Performed By: #### L 500.2500, L100.0100 ####[facility] [address] [place], [address] CBC W/Diff, Automatedon 09-0 Absolute Neut Normal 2.0-7.7 [facility] Comment on above: Result Comment: Canc elled via OM: Order cancelled - Patient discharged Performed By: #### L 500.2500, L100.0100 ####[facility] [address] [place], [address] HCT Normal 37-47 [facility] Comment on above: Result Comment: Canc elled via OM: Order cancelled - Patient discharged Performed By: #### L 500.2500, L100.0100 ####[facility] [address] [place], [address] HGB Normal 12.0-15.0 [facility] Comment on above: Result Comment: Canc elled via OM: Order cancelled - Patient discharged Performed By: #### L 500.2500, L100.0100 ####[facility] [address] [place], [address] MCH Normal 27.0-32.0 [facility] Comment on above: Result Comment: Canc elled via OM: Order cancelled - Patient discharged Performed By: #### L 500.2500, L100.0100 ####[facility] [address] [place], [address] MCHC Normal 32-36 [facility] Comment on above: Result Comment: Canc elled via OM: Order cancelled - Patient discharged Performed By: #### L 500.2500, L100.0100 ####[facility] [address] [place], [address] MCV Normal 81-99 [facility] Comment on above: Result Comment: Canc elled via OM: Order cancelled - Patient discharged Performed By: #### L 500.2500, L100.0100 ####[facility] [address] [place], [address] NEUT% Normal 47-70 [facility] Comment on above: Result Comment: Canc elled via OM: Order cancelled - Patient discharged Performed By: #### L 500.2500, L100.0100 ####[facility] [address] [place], [address] PLT Normal 150-450 [facility] Comment on above: Result Comment: Canc elled via OM: Order cancelled - Patient discharged Performed By: #### L 500.2500, L100.0100 ####[facility] [address] [place], [address] RBC Normal 4.2-5.4 [facility] Comment on above: Result Comment: Canc elled via OM: Order cancelled - Patient discharged Performed By: #### L 500.2500, L100.0100 ####[facility] [address] [place], [address] RDW CV Normal 11.6-14.6 [facility] Comment on above: Result Comment: Canc elled via OM: Order cancelled - Patient discharged Performed By: #### L 500.2500, L100.0100 ####[facility] [address] [place], [address] RDW SD Normal 35.1-43.9 [facility] Comment on above: Result Comment: Canc elled via OM: Order cancelled - Patient discharged Performed By: #### L 500.2500, L100.0100 ####[facility] [address] [place], [address] WBC Normal 4.4-11.0 [facility] Comment on above: Result Comment: Canc elled via OM: Order cancelled - Patient discharged Performed By: #### L 500.2500, L100.0100 ####[facility] [address] [place], [address] [facility] 01-02-2025 [place] Telephone (FAMPWS) DENIA GONZALEZ ([id number]) 1955 F Date Time Provider Department 01/02/25 [...] 3:36 PM Signed Okay to proceed with HHC orders. Okay [...] directed. Dx: COPD J44.9 - Nebulizer Accessories [facility] Mask and supplies as needed - PULSE OXIMETER [facility] Use as directed to check oxygen saturation level - ammonium lactate (AMLACTIN) 12 % lotion Apply 1 application to affected area as needed for Dry Skin. - losartan (COZAAR) 50 mg tablet Take 0.5 tablets by mouth once daily. - OXYGEN, HOME THERAPY, 2.5 L/min by Nasal Cannula route continuous. Use as directred - Disposable Gloves (DISPOSABLE LATEX-FREE GLOVES) [facility] 1 Box once every month. ICD 10: M15.9, J44.9, M54.40 - Incontinence Pad, Liner, Disp (POISE PADS) pads Use pads as directed. Dx: N39.46 - COMPOUNDED PRESCRIPTION BLOOD PRESSURE CUFF FOR HOME USE. DX: HYPERTENSION I10. AUTOMATIC CUFF. - COMPOUNDED PRESCRIPTION Blood press (more content not included)... Normal [facility] 36on 01-01-2025 36 Pending [facility] portal and records uploaded #[id number] Normal [facility] Basic Metabolic Profile (BMP )on 01-01-2025 BUN Normal 4-19 [facility] Comment on above: Result Comment: Canc elled via OM: Order cancelled - Patient discharged Performed By: #### L 500.2500, L100.0100 ####[facility] [address] [place], [address] BUN/CRE Normal 10-20 [facility] Comment on above: Result Comment: Canc elled via OM: Order cancelled - Patient discharged Performed By: #### L 500.2500, L100.0100 ####[facility] [address] [place], [address] Calcium Normal 7.6-11.0 [facility] Comment on above: Result Comment: Canc elled via OM: Order cancelled - Patient discharged Performed By: #### L 500.2500, L100.0100 ####[facility] [address] [place], [address] CL Normal 98-108 [facility] Comment on above: Result Comment: Canc elled via OM: Order cancelled - Patient discharged Performed By: #### L 500.2500, L100.0100 ####[facility] [address] [place], [address] CO2 Normal 21.0-32.0 [facility] Comment on above: Result Comment: Canc elled via OM: Order cancelled - Patient discharged Performed By: #### L 500.2500, L100.0100 ####[facility] [address] [place], [address] CREAT,SERUM Normal 0.70-1.20 [facility] Comment on above: Result Comment: Canc elled via OM: Order cancelled - Patient discharged Performed By: #### L 500.2500, L100.0100 ####[facility] [address] [place], [address] eGFR Normal >60 [facility] Comment on above: Result Comment: Canc elled via OM: Order cancelled - Patient discharged Performed By: #### L 500.2500, L100.0100 ####[facility] [address] [place], [address] GAP Normal 5-15 [facility] Comment on above: Result Comment: Canc elled via OM: Order cancelled - Patient discharged Performed By: #### L 500.2500, L100.0100 ####[facility] [address] [place], [address] GLU Normal 70-99 [facility] Comment on above: Result Comment: Canc elled via OM: Order cancelled - Patient discharged Performed By: #### L 500.2500, L100.0100 ####[facility] [address] [place], [address] Potassium Normal 3.3-5.1 [facility] Comment on above: Result Comment: Canc elled via OM: Order cancelled - Patient discharged Performed By: #### L 500.2500, L100.0100 ####[facility] [address] [place], [address] Basic Metabolic Profile (BMP) Normal 133-145 [facility] Comment on above: Result Comment: Canc elled via OM: Order cancelled - Patient discharged Performed By: #### L 500.2500, L100.0100 ####[facility] [address] [place], [address] CBC W/Diff, Automatedon 09-0 8-2024 Absolute Neut Normal 2.0-7.7 [facility] Comment on above: Result Comment: Canc elled via OM: Order cancelled - Patient discharged Performed By: #### L 500.2500, L100.0100 ####[facility] [address] [place], [address] HCT Normal 37-47 [facility] Comment on above: Result Comment: Canc elled via OM: Order cancelled - Patient discharged Performed By: #### L 500.2500, L100.0100 ####[facility] [address] [place], [address] HGB Normal 12.0-15.0 [facility] Comment on above: Result Comment: Canc elled via OM: Order cancelled - Patient discharged Performed By: #### L 500.2500, L100.0100 ####[facility] [address] [place], [address] MCH Normal 27.0-32.0 [facility] Comment on above: Result Comment: Canc elled via OM: Order cancelled - Patient discharged Performed By: #### L 500.2500, L100.0100 ####[facility] [address] [place], [address] MCHC Normal 32-36 [facility] Comment on above: Result Comment: Canc elled via OM: Order cancelled - Patient discharged Performed By: #### L 500.2500, L100.0100 ####[facility] [address] [place], [address] MCV Normal 81-99 [facility] Comment on above: Result Comment: Canc elled via OM: Order cancelled - Patient discharged Performed By: #### L 500.2500, L100.0100 ####[facility] [address] [place], [address] NEUT% Normal 47-70 [facility] Comment on above: Result Comment: Canc elled via OM: Order cancelled - Patient discharged Performed By: #### L 500.2500, L100.0100 ####[facility] [address] [place], [address] PLT Normal 150-450 [facility] Comment on above: Result Comment: Canc elled via OM: Order cancelled - Patient discharged Performed By: #### L 500.2500, L100.0100 ####[facility] [address] [place], [address] RBC Normal 4.2-5.4 [facility] Comment on above: Result Comment: Canc elled via OM: Order cancelled - Patient discharged Performed By: #### L 500.2500, L100.0100 ####[facility] [address] [place], [address] RDW CV Normal 11.6-14.6 [facility] Comment on above: Result Comment: Canc elled via OM: Order cancelled - Patient discharged Performed By: #### L 500.2500, L100.0100 ####[facility] [address] [place], [address] RDW SD Normal 35.1-43.9 [facility] Comment on above: Result Comment: Canc elled via OM: Order cancelled - Patient discharged Performed By: #### L 500.2500, L100.0100 ####[facility] [address] [place], [address] WBC Normal 4.4-11.0 [facility] Comment on above: Result Comment: Canc elled via OM: Order cancelled - Patient discharged Performed By: #### L 500.2500, L100.0100 ####[facility] [address] [place], [address] Basic Metabolic Profile (BMP )on 12-31-2024 BUN Normal 4-19 [facility] Comment on above: Result Comment: Canc elled via OM: Order cancelled - Patient discharged Performed By: #### L 500.2500, L100.0100 ####[facility] [address] [place], [address] BUN/CRE Normal 10-20 [facility] Comment on above: Result Comment: Canc elled via OM: Order cancelled - Patient discharged Performed By: #### L 500.2500, L100.0100 ####[facility] [address] [place], [address] Calcium Normal 7.6-11.0 [facility] Comment on above: Result Comment: Canc elled via OM: Order cancelled - Patient discharged Performed By: #### L 500.2500, L100.0100 ####[facility] [address] [place], [address] CL Normal 98-108 [facility] Comment on above: Result Comment: Canc elled via OM: Order cancelled - Patient discharged Performed By: #### L 500.2500, L100.0100 ####[facility] [address] [place], [address] CO2 Normal 21.0-32.0 [facility] Comment on above: Result Comment: Canc elled via OM: Order cancelled - Patient discharged Performed By: #### L 500.2500, L100.0100 ####[facility] [address] [place], [address] CREAT,SERUM Normal 0.70-1.20 [facility] Comment on above: Result Comment: Canc elled via OM: Order cancelled - Patient discharged Performed By: #### L 500.2500, L100.0100 ####[facility] [address] [place], [address] eGFR Normal >60 [facility] Comment on above: Result Comment: Canc elled via OM: Order cancelled - Patient discharged Performed By: #### L 500.2500, L100.0100 ####[facility] [address] [place], [address] GAP Normal 5-15 [facility] Comment on above: Result Comment: Canc elled via OM: Order cancelled - Patient discharged Performed By: #### L 500.2500, L100.0100 ####[facility] [address] [place], [address] GLU Normal 70-99 [facility] Comment on above: Result Comment: Canc elled via OM: Order cancelled - Patient discharged Performed By: #### L 500.2500, L100.0100 ####[facility] [address] [place], [address] Potassium Normal 3.3-5.1 [facility] Comment on above: Result Comment: Canc elled via OM: Order cancelled - Patient discharged Performed By: #### L 500.2500, L100.0100 ####[facility] [address] [place], [address] Basic Metabolic Profile (BMP) Normal 133-145 [facility] Comment on above: Result Comment: Canc elled via OM: Order cancelled - Patient discharged Performed By: #### L 500.2500, L100.0100 ####[facility] [address] [place], [address] CBC W/Diff, Automatedon 09-0 Absolute Neut Normal 2.0-7.7 [facility] Comment on above: Result Comment: Canc elled via OM: Order cancelled - Patient discharged Performed By: #### L 500.2500, L100.0100 ####[facility] [address] [place], [address] HCT Normal 37-47 [facility] Comment on above: Result Comment: Canc elled via OM: Order cancelled - Patient discharged Performed By: #### L 500.2500, L100.0100 ####[facility] [address] [place], [address] HGB Normal 12.0-15.0 [facility] Comment on above: Result Comment: Canc elled via OM: Order cancelled - Patient discharged Performed By: #### L 500.2500, L100.0100 ####[facility] [address] [place], [address] MCH Normal 27.0-32.0 [facility] Comment on above: Result Comment: Canc elled via OM: Order cancelled - Patient discharged Performed By: #### L 500.2500, L100.0100 ####[facility] [address] [place], [address] MCHC Normal 32-36 [facility] Comment on above: Result Comment: Canc elled via OM: Order cancelled - Patient discharged Performed By: #### L 500.2500, L100.0100 ####[facility] [address] [place], [address] MCV Normal 81-99 [facility] Comment on above: Result Comment: Canc elled via OM: Order cancelled - Patient discharged Performed By: #### L 500.2500, L100.0100 ####[facility] [address] [place], [address] NEUT% Normal 47-70 [facility] Comment on above: Result Comment: Canc elled via OM: Order cancelled - Patient discharged Performed By: #### L 500.2500, L100.0100 ####[facility] [address] [place], [address] PLT Normal 150-450 [facility] Comment on above: Result Comment: Canc elled via OM: Order cancelled - Patient discharged Performed By: #### L 500.2500, L100.0100 ####[facility] [address] [place], [address] RBC Normal 4.2-5.4 [facility] Comment on above: Result Comment: Canc elled via OM: Order cancelled - Patient discharged Performed By: #### L 500.2500, L100.0100 ####[facility] [address] [place], [address] RDW CV Normal 11.6-14.6 [facility] Comment on above: Result Comment: Canc elled via OM: Order cancelled - Patient discharged Performed By: #### L 500.2500, L100.0100 ####[facility] [address] [place], [address] RDW SD Normal 35.1-43.9 [facility] Comment on above: Result Comment: Canc elled via OM: Order cancelled - Patient discharged Performed By: #### L 500.2500, L100.0100 ####[facility] [address] [place], [address] WBC Normal 4.4-11.0 [facility] Comment on above: Result Comment: Canc elled via OM: Order cancelled - Patient discharged Performed By: #### L 500.2500, L100.0100 ####[facility] [address] [place], [address] Absolute lymphocyte countOrd ered By: Lynnesheba Schafer on 12-30-2024 Lymphocytes Auto (Unsp spec) [#/Vol] 0.47 10*3/uL Low 0.83-4.51 [facility] Absolute neutrophil countOrd ered By: Lynne Schafer on 12-30-2024 Neutrophils (Bld) [#/Vol] 7.3 10*3/uL 2.0-7.7 [facility] Anion gap in Serum or Plasma Ordered By: Lynne Schafer on 12-30-2024 Anion gap [Moles/Vol] 9 mmol/L 5-15 [facility] Automated lymphocyte count a s percentage of total leukocytesOrdered By: Lynnesheba Schafer on 12-30-2024 Lymphocytes/100 WBC Auto (Unsp spec) 5.9 % Low 19-41 [facility] BUN/creatinine ratioOrdered By: Lynne Schafer on 12-30-2024 Urea nitrogen/Creatinine [Mass ratio] 31.0 mg/mg High 10-20 [facility] Basic Metabolic Profile (BMP )on 12-30-2024 BUN/CRE 31.0 RATIO High 10-20 [facility] Comment on above: Performed By: #### L 100.0100, L500.2500 ####[facility] [address] [place], [address] Calcium [Mass/Vol] 8.5 mg/dL Normal 7.6-11.0 [facility] Comment on above: Performed By: #### L 100.0100, L500.2500 ####[facility] [address] [place], [address] Chloride [Moles/Vol] 95 mmol/L Low 98-108 [facility] Comment on above: Performed By: #### L 100.0100, L500.2500 ####[facility] [address] [place], [address] CO2 [Moles/Vol] 37.3 mmol/L High 21.0-32.0 [facility] Comment on above: Performed By: #### L 100.0100, L500.2500 ####[facility] [address] [place], [address] Creatinine [Mass/Vol] 0.51 mg/dL Low 0.70-1.20 [facility] Comment on above: Performed By: #### L 100.0100, L500.2500 ####[facility] [address] [place], [address] ECRCL 65.36 ml/min Normal 50-250 [facility] Comment on above: Performed By: #### L 100.0100, L500.2500 ####[facility] [address] [place], [address] GAP 9 Normal 5-15 [facility] Comment on above: Performed By: #### L 100.0100, L500.2500 ####[facility] [address] [place], [address] GFR/1.73 sq M.predicted among non-blacks MDRD (S/P/Bld) [Vol rate/Area] 101 mL/min/{1.73_m2} Normal >60 [facility] Comment on above: Result Comment: mL/m in/1.73m2 CKD-EPI Creatinine Equation (2020) Performed By: #### L 100.0100, L500.2500 ####[facility] [address] [place], [address] Glucose [Mass/Vol] 124 mg/dL High 70-99 [facility] Comment on above: Performed By: #### L 100.0100, L500.2500 ####[facility] [address] [place], [address] Potassium [Moles/Vol] 4.7 mmol/L Normal 3.3-5.1 [facility] Comment on above: Performed By: #### L 100.0100, L500.2500 ####[facility] [address] [place], [address] Sodium [Moles/Vol] 141 mmol/L Normal 133-145 [facility] Comment on above: Performed By: #### L 100.0100, L500.2500 ####[facility] [address] [place], [address] Urea nitrogen [Mass/Vol] 16 mg/dL Normal 4-19 [facility] Comment on above: Performed By: #### L 100.0100, L500.2500 ####[facility] [address] [place], [address] Basophil percentageOrdered B y: Lynne Schafer on 12-30-2024 Basophils/100 WBC (Bld) 0.0 % 0-1 [facility] CBC W/Diff, Automatedon Absolute Lymph 0.47 X10 3/uL Low 0.83-4.51 [facility] Comment on above: Performed By: #### L 100.0100, L500.2500 ####[facility] [address] [place], [address] Absolute Neut 7.3 X10 3/uL Normal 2.0-7.7 [facility] Comment on above: Performed By: #### L 100.0100, L500.2500 ####[facility] [address] [place], [address] Basophils/100 WBC (Bld) 0.0 % Normal 0-1 [facility] Comment on above: Performed By: #### L 100.0100, L500.2500 ####[facility] [address] [place], [address] Eosinophils/100 WBC (Bld) 0.0 % Normal 0-5 [facility] Comment on above: Performed By: #### L 100.0100, L500.2500 ####[facility] [address] [place], [address] Erythrocyte distribution width (RBC) [Ratio] 13.7 % Normal 11.6-14.6 [facility] Comment on above: Performed By: #### L 100.0100, L500.2500 ####[facility] [address] [place], [address] Hematocrit (Bld) [Volume fraction] 28.6 % Low 37-47 [facility] Comment on above: Performed By: #### L 100.0100, L500.2500 ####[facility] [address] [place], [address] Hemoglobin (Bld) [Mass/Vol] 8.9 g/dL Low 12.0-15.0 [facility] Comment on above: Performed By: #### L 100.0100, L500.2500 ####[facility] [address] [place], [address] IG% 0.600 Normal 0.0-0.9 [facility] Comment on above: Result Comment: IG% - Immature Granulocytes (promyelocytes, myelocytes andmetamyelocytes) > 1% indicates that a LEFT SHIFT is Present. Performed By: #### L 100.0100, L500.2500 ####[facility] [address] [place], [address] Lymphocytes/100 WBC (Bld) 5.9 % Low 19-41 [facility] Comment on above: Performed By: #### L 100.0100, L500.2500 ####[facility] [address] [place], [address] MCH (RBC) [Entitic mass] 26.3 pg Low 27.0-32.0 [facility] Comment on above: Performed By: #### L 100.0100, L500.2500 ####[facility] [address] [place], [address] MCHC (RBC) [Mass/Vol] 31.1 g/dL Low 32-36 [facility] Comment on above: Performed By: #### L 100.0100, L500.2500 ####[facility] [address] [place], [address] MCV (RBC) [Entitic vol] 84.6 fL Normal 81-99 [facility] Comment on above: Performed By: #### L 100.0100, L500.2500 ####[facility] [address] [place], [address] Monocytes/100 WBC (Bld) 2.5 % Normal 0-10 [facility] Comment on above: Performed By: #### L 100.0100, L500.2500 ####[facility] [address] [place], [address] Neutrophils/100 WBC (Bld) 91.0 % High 47-70 [facility] Comment on above: Performed By: #### L 100.0100, L500.2500 ####[facility] [address] [place], [address] Nucleated RBC (Bld) [#/Vol] 0 10*3/uL Normal 0-5 [facility] Comment on above: Performed By: #### L 100.0100, L500.2500 ####[facility] [address] [place], [address] Platelet mean volume (Bld) [Entitic vol] 9.7 fL Normal 6.2-12.0 [facility] Comment on above: Performed By: #### L 100.0100, L500.2500 ####[facility] [address] [place], [address] Platelets (Bld) [#/Vol] 212 10*3/uL Normal 150-450 [facility] Comment on above: Performed By: #### L 100.0100, L500.2500 ####[facility] [address] [place], [address] RBC (Bld) [#/Vol] 3.38 10*6/uL Low 4.2-5.4 [facility] Comment on above: Performed By: #### L 100.0100, L500.2500 ####[facility] [address] [place], [address] RDW SD 42.5 fl Normal 35.1-43.9 [facility] Comment on above: Performed By: #### L 100.0100, L500.2500 ####[facility] [address] [place], [address] WBC (Bld) [#/Vol] 8.0 10*3/uL Normal 4.4-11.0 [facility] Comment on above: Performed By: #### L 100.0100, L500.2500 ####[facility] [address] [place], [address] Carbon dioxide, total [Moles /volume] in Central venous bloodOrdered By: Lynne Schafer on 12-30-2024 CO2 [Moles/Vol] 37.3 mmol/L High 21.0-32.0 [facility] Chloride assayOrdered By: Na na Gilmar on 12-30-2024 Chloride [Moles/Vol] 95 mmol/L Low 98-108 [facility] Discharge Instructionon 09-0 Discharge Instruction Normal [facility] Eosinophil percentageOrdered By: Lynne Schafer on 12-30-2024 Eosinophils/100 WBC (Bld) 0.0 % 0-5 [facility] Erythrocyte distribution wid th ratioOrdered By: Lynne Schafer on 12-30-2024 Erythrocyte distribution width (RBC) [Ratio] 13.7 % 11.6-14.6 [facility] Erythrocyte distribution wid th standard deviationOrdered By: Lynne Schafer on 12-30-2024 Erythrocyte distribution width (RBC) [Ratio] 42.5 fl 35.1-43.9 [facility] Glomerular filtration rate ( GFR) estimation/1.73 sq m using serum, plasma, or whole bOrdered By: Lynne Schafer on 12-30-2024 GFR/1.73 sq M.predicted among non-blacks MDRD (S/P/Bld) [Vol rate/Area] 101 mL/min/{1.73_m2} >60 [facility] Comment on above: mL/min/1.73m2 CKD-EP I Creatinine Equation (2020) Hematocrit Auto (Bld) [Volum e fraction]Ordered By: Lynne Schafer on 12-30-2024 Hematocrit (Bld) [Volume fraction] 28.6 % Low 37-47 [facility] Hemoglobin measurementOrdere d By: Lynne Schafer on 12-30-2024 Hemoglobin (Bld) [Mass/Vol] 8.9 g/dL Low 12.0-15.0 [facility] Immature granulocytes/100 WB C Auto (Bld)Ordered By: Lynne Schafer on 12-30-2024 Immature granulocytes/100 WBC (Bld) 0.600 % 0.0-0.9 [facility] Comment on above: IG% - Immature Granu locytes (promyelocytes, myelocytes and metamyelocytes) > 1% indicates that a LEFT SHIFT is Present. MCV (mean corpuscular volume ) determinationOrdered By: Lynne Schafer on 12-30-2024 MCV (RBC) [Entitic vol] 84.6 fL 81-99 [facility] Mean corpuscular hemoglobin (MCH) determinationOrdered By: Lynne Schafer on 12-30-2024 MCH (RBC) [Entitic mass] 26.3 pg Low 27.0-32.0 [facility] Mean corpuscular hemoglobin concentration (MCHC) determinationOrdered By: Lynne Schafer on 12-30-2024 MCHC (RBC) [Mass/Vol] 31.1 g/dL Low 32-36 [facility] Mean platelet volume determi nationOrdered By: Lynne Schafer on 12-30-2024 Platelet mean volume (Bld) [Entitic vol] 9.7 fL 6.2-12.0 [facility] Monocyte percentageOrdered B y: Lynne Schafer on 12-30-2024 Monocytes/100 WBC (Bld) 2.5 % 0-10 [facility] Neutrophil percentageOrdered By: Lynne Schafer on 12-30-2024 Neutrophils/100 WBC (Bld) 91.0 % High 47-70 [facility] Nucleated red blood cell per centageOrdered By: Lynne Schafer on 12-30-2024 Nucleated RBC/100 WBC (Bld) [Ratio] 0 % 0-5 [facility] Platelet countOrdered By: Belkys Schafer on 12-30-2024 Platelets (Bld) [#/Vol] 212 10*3/uL 150-450 [facility] Potassium measurement (mass/ volume)Ordered By: Lynne Schafer on 12-30-2024 Potassium (Unsp spec) [Mass/Vol] 4.7 mmol/L 3.3-5.1 [facility] RBC Auto (Bld) [#/Vol]Ordere d By: Lynne Schafer on 12-30-2024 RBC (Bld) [#/Vol] 3.38 10*6/uL Low 4.2-5.4 [facility] Serum creatinine measurement (mass/volume)Ordered By: Lynne Schafer on 12-30-2024 Creatinine [Mass/Vol] 0.51 mg/dL Low 0.70-1.20 [facility] Serum glucose measurement (m ass/volume)Ordered By: Lynne Schafer on 12-30-2024 Glucose [Mass/Vol] 124 mg/dL High 70-99 [facility] Serum or plasma calcium kadi urement (mass/volume)Ordered By: Lynne Schafer on 12-30-2024 Calcium [Mass/Vol] 8.5 mg/dL 7.6-11.0 [facility] Serum or plasma urea nitroge n measurement (mass/volume)Ordered By: Lynne Schafer on 12-30-2024 Urea nitrogen [Mass/Vol] 16 mg/dL 4-19 [facility] Sodium levelOrdered By: Lynne Schafer on 12-30-2024 Sodium [Moles/Vol] 141 mmol/L 133-145 [facility] White blood cell (WBC) count Ordered By: Lynne Schafer on 12-30-2024 WBC (Bld) [#/Vol] 8.0 10*3/uL 4.4-11.0 [facility] Basic Metabolic Profile (BMP )on 12-29-2024 BUN/CRE 37.4 RATIO High 10-20 [facility] Comment on above: Performed By: #### L 500.2500, L100.0100 ####[facility] [address] [place], [address] Calcium [Mass/Vol] 8.7 mg/dL Normal 7.6-11.0 [facility] Comment on above: Performed By: #### L 500.2500, L100.0100 ####[facility] [address] [place], [address] Chloride [Moles/Vol] 94 mmol/L Low 98-108 [facility] Comment on above: Performed By: #### L 500.2500, L100.0100 ####[facility] [address] [place], [address] CO2 [Moles/Vol] 38.0 mmol/L High 21.0-32.0 [facility] Comment on above: Performed By: #### L 500.2500, L100.0100 ####[facility] [address] [place], [address] Creatinine [Mass/Vol] 0.55 mg/dL Low 0.70-1.20 [facility] Comment on above: Performed By: #### L 500.2500, L100.0100 ####[facility] [address] [place], [address] ECRCL 65.36 ml/min Normal 50-250 [facility] Comment on above: Performed By: #### L 500.2500, L100.0100 ####[facility] [address] [place], [address] GAP 8 Normal 5-15 [facility] Comment on above: Performed By: #### L 500.2500, L100.0100 ####[facility] [address] [place], [address] GFR/1.73 sq M.predicted among non-blacks MDRD (S/P/Bld) [Vol rate/Area] 99 mL/min/{1.73_m2} Normal >60 [facility] Comment on above: Result Comment: mL/m in/1.73m2 CKD-EPI Creatinine Equation (2020) Performed By: #### L 500.2500, L100.0100 ####[facility] [address] [place], [address] Glucose [Mass/Vol] 97 mg/dL Normal 70-99 [facility] Comment on above: Performed By: #### L 500.2500, L100.0100 ####[facility] [address] [place], [address] Potassium [Moles/Vol] 4.4 mmol/L Normal 3.3-5.1 [facility] Comment on above: Performed By: #### L 500.2500, L100.0100 ####[facility] [address] [place], [address] Sodium [Moles/Vol] 140 mmol/L Normal 133-145 [facility] Comment on above: Performed By: #### L 500.2500, L100.0100 ####[facility] [address], [address] Urea nitrogen [Mass/Vol] 21 mg/dL High 4-19 [facility] Comment on above: Performed By: #### L 500.2500, L100.0100 ####[facility] [address] [place], [address] CBC W/Diff, Automatedon 09-0 -2024 Absolute Lymph 0.49 X10 3/uL Low 0.83-4.51 [facility] Comment on above: Performed By: #### L 500.2500, L100.0100 ####[facility] [address], [address] Absolute Neut 6.8 X10 3/uL Normal 2.0-7.7 [facility] Comment on above: Performed By: #### L 500.2500, L100.0100 ####[facility] [address] [place], [address] Basophils/100 WBC (Bld) 0.1 % Normal 0-1 [facility] Comment on above: Performed By: #### L 500.2500, L100.0100 ####[facility] [address] [place], [address] Eosinophils/100 WBC (Bld) 0.0 % Normal 0-5 [facility] Comment on above: Performed By: #### L 500.2500, L100.0100 ####[facility] [address] [place], [address] Erythrocyte distribution width (RBC) [Ratio] 14.0 % Normal 11.6-14.6 [facility] Comment on above: Performed By: #### L 500.2500, L100.0100 ####[facility] [address] [place], [address] Hematocrit (Bld) [Volume fraction] 26.6 % Low 37-47 [facility] Comment on above: Performed By: #### L 500.2500, L100.0100 ####[facility] [address] [place], [address] Hemoglobin (Bld) [Mass/Vol] 8.4 g/dL Low 12.0-15.0 [facility] Comment on above: Performed By: #### L 500.2500, L100.0100 ####[facility] [address], [address] IG% 0.700 Normal 0.0-0.9 [facility] Comment on above: Result Comment: IG% - Immature Granulocytes (promyelocytes, myelocytes andmetamyelocytes) > 1% indicates that a LEFT SHIFT is Present. Performed By: #### L 500.2500, L100.0100 ####[facility] [address] [place], [address] Lymphocytes/100 WBC (Bld) 6.5 % Low 19-41 [facility] Comment on above: Performed By: #### L 500.2500, L100.0100 ####[facility] [address] [place], [address] MCH (RBC) [Entitic mass] 26.7 pg Low 27.0-32.0 [facility] Comment on above: Performed By: #### L 500.2500, L100.0100 ####[facility] [address] [place], [address] MCHC (RBC) [Mass/Vol] 31.6 g/dL Low 32-36 [facility] Comment on above: Performed By: #### L 500.2500, L100.0100 ####[facility] [address] [place], [address] MCV (RBC) [Entitic vol] 84.4 fL Normal 81-99 [facility] Comment on above: Performed By: #### L 500.2500, L100.0100 ####[facility] [address] [place], [address] Monocytes/100 WBC (Bld) 2.8 % Normal 0-10 [facility] Comment on above: Performed By: #### L 500.2500, L100.0100 ####[facility] [address] [place], [address] Neutrophils/100 WBC (Bld) 89.9 % High 47-70 [facility] Comment on above: Performed By: #### L 500.2500, L100.0100 ####[facility] [address] [place], [address] Nucleated RBC (Bld) [#/Vol] 0 10*3/uL Normal 0-5 [facility] Comment on above: Performed By: #### L 500.2500, L100.0100 ####[facility] [address] [place], [address] Platelet mean volume (Bld) [Entitic vol] 9.3 fL Normal 6.2-12.0 [facility] Comment on above: Performed By: #### L 500.2500, L100.0100 ####[facility] [address] [place], [address] Platelets (Bld) [#/Vol] 169 10*3/uL Normal 150-450 [facility] Comment on above: Performed By: #### L 500.2500, L100.0100 ####[facility] [address] [place], [address] RBC (Bld) [#/Vol] 3.15 10*6/uL Low 4.2-5.4 [facility] Comment on above: Performed By: #### L 500.2500, L100.0100 ####[facility] [address] [place], [address] RDW SD 43.0 fl Normal 35.1-43.9 [facility] Comment on above: Performed By: #### L 500.2500, L100.0100 ####[facility] [address] [place], [address] WBC (Bld) [#/Vol] 7.6 10*3/uL Normal 4.4-11.0 [facility] Comment on above: Performed By: #### L 500.2500, L100.0100 ####[facility] [address] [place], [address] 12 Lead EKGon 12-28-2024 12 Lead EKG Normal [facility] Basic Metabolic Profile (BMP )on 12-28-2024 BUN/CRE 39.3 RATIO High 10-20 [facility] Comment on above: Performed By: #### L 100.0100, L500.2500 ####[facility] [address] [place], [address] Calcium [Mass/Vol] 9.1 mg/dL Normal 7.6-11.0 [facility] Comment on above: Performed By: #### L 100.0100, L500.2500 ####[facility] [address] [place], [address] Chloride [Moles/Vol] 93 mmol/L Low 98-108 [facility] Comment on above: Performed By: #### L 100.0100, L500.2500 ####[facility] [address] [place], [address] CO2 [Moles/Vol] 37.2 mmol/L High 21.0-32.0 [facility] Comment on above: Performed By: #### L 100.0100, L500.2500 ####[facility] [address] [place], [address] Creatinine [Mass/Vol] 0.59 mg/dL Low 0.70-1.20 [facility] Comment on above: Performed By: #### L 100.0100, L500.2500 ####[facility] [address] [place], [address] ECRCL 64.18 ml/min Normal 50-250 [facility] Comment on above: Performed By: #### L 100.0100, L500.2500 ####[facility] [address] [place], [address] GAP 9 Normal 5-15 [facility] Comment on above: Performed By: #### L 100.0100, L500.2500 ####[facility] [address] [place], [address] GFR/1.73 sq M.predicted among non-blacks MDRD (S/P/Bld) [Vol rate/Area] 97 mL/min/{1.73_m2} Normal >60 [facility] Comment on above: Result Comment: mL/m in/1.73m2 CKD-EPI Creatinine Equation (2020) Performed By: #### L 100.0100, L500.2500 ####[facility] [address] [place], [address] Glucose [Mass/Vol] 132 mg/dL High 70-99 [facility] Comment on above: Performed By: #### L 100.0100, L500.2500 ####[facility] [address] [place], [address] Potassium [Moles/Vol] 4.6 mmol/L Normal 3.3-5.1 [facility] Comment on above: Performed By: #### L 100.0100, L500.2500 ####[facility] [address] [place], [address] Sodium [Moles/Vol] 139 mmol/L Normal 133-145 [facility] Comment on above: Performed By: #### L 100.0100, L500.2500 ####[facility] [address] [place], [address] Urea nitrogen [Mass/Vol] 23 mg/dL High 4-19 [facility] Comment on above: Performed By: #### L 100.0100, L500.2500 ####[facility] [address] [place], [address] CBC W/Diff, Automatedon 09-0 -2024 Absolute Lymph 0.58 X10 3/uL Low 0.83-4.51 [facility] Comment on above: Performed By: #### L 100.0100, L500.2500 ####[facility] [address] [place], [address] Absolute Neut 9.6 X10 3/uL High 2.0-7.7 [facility] Comment on above: Performed By: #### L 100.0100, L500.2500 ####[facility] [address] [place], [address] Basophils/100 WBC (Bld) 0.1 % Normal 0-1 [facility] Comment on above: Performed By: #### L 100.0100, L500.2500 ####[facility] [address] [place], [address] Eosinophils/100 WBC (Bld) 0.0 % Normal 0-5 [facility] Comment on above: Performed By: #### L 100.0100, L500.2500 ####[facility] [address] [place], [address] Erythrocyte distribution width (RBC) [Ratio] 13.8 % Normal 11.6-14.6 [facility] Comment on above: Performed By: #### L 100.0100, L500.2500 ####[facility] [address] [place], [address] Hematocrit (Bld) [Volume fraction] 26.4 % Low 37-47 [facility] Comment on above: Performed By: #### L 100.0100, L500.2500 ####[facility] [address] [place], [address] Hemoglobin (Bld) [Mass/Vol] 8.5 g/dL Low 12.0-15.0 [facility] Comment on above: Performed By: #### L 100.0100, L500.2500 ####[facility] [address] [place], [address] IG% 0.800 Normal 0.0-0.9 [facility] Comment on above: Result Comment: IG% - Immature Granulocytes (promyelocytes, myelocytes andmetamyelocytes) > 1% indicates that a LEFT SHIFT is Present. Performed By: #### L 100.0100, L500.2500 ####[facility] [address] [place], [address] Lymphocytes/100 WBC (Bld) 5.5 % Low 19-41 [facility] Comment on above: Performed By: #### L 100.0100, L500.2500 ####[facility] [address] [place], [address] MCH (RBC) [Entitic mass] 27.1 pg Normal 27.0-32.0 [facility] Comment on above: Performed By: #### L 100.0100, L500.2500 ####[facility] [address] [place], [address] MCHC (RBC) [Mass/Vol] 32.2 g/dL Normal 32-36 [facility] Comment on above: Performed By: #### L 100.0100, L500.2500 ####[facility] [address] [place], [address] MCV (RBC) [Entitic vol] 84.1 fL Normal 81-99 [facility] Comment on above: Performed By: #### L 100.0100, L500.2500 ####[facility] [address] [place], [address] Monocytes/100 WBC (Bld) 3.0 % Normal 0-10 [facility] Comment on above: Performed By: #### L 100.0100, L500.2500 ####[facility] [address] [place], [address] Neutrophils/100 WBC (Bld) 90.6 % High 47-70 [facility] Comment on above: Performed By: #### L 100.0100, L500.2500 ####[facility] [address] [place], [address] Nucleated RBC (Bld) [#/Vol] 0 10*3/uL Normal 0-5 [facility] Comment on above: Performed By: #### L 100.0100, L500.2500 ####[facility] [address] [place], [address] Platelet mean volume (Bld) [Entitic vol] 9.4 fL Normal 6.2-12.0 [facility] Comment on above: Performed By: #### L 100.0100, L500.2500 ####[facility] [address] [place], [address] Platelets (Bld) [#/Vol] 203 10*3/uL Normal 150-450 [facility] Comment on above: Performed By: #### L 100.0100, L500.2500 ####[facility] [address] [place], [address] RBC (Bld) [#/Vol] 3.14 10*6/uL Low 4.2-5.4 [facility] Comment on above: Performed By: #### L 100.0100, L500.2500 ####[facility] [address] [place], [address] RDW SD 42.5 fl Normal 35.1-43.9 [facility] Comment on above: Performed By: #### L 100.0100, L500.2500 ####[facility] [address] [place], [address] WBC (Bld) [#/Vol] 10.6 10*3/uL Normal 4.4-11.0 [facility] Comment on above: Performed By: #### L 100.0100, L500.2500 ####[facility] [address] [place], [address] EGD Reporton 12-28-2024 EGD Report Normal [facility] MR/CON.PCM.GIon 12-28-2024 MR/CON.PCM.GI Normal [facility] MR/OP.PROVATon 12-28-2024 MR/OP.PROVAT Normal [facility] MR/POSTOP.ANEon 12-28-2024 MR/POSTOP.ANE Normal [facility] MR/[id number] 12-28-2024 MR/POSTOPAN2 Normal [facility] Absolute lymphocyte countOrd ered By: Dionne Charlotte on 12-27-2024 Lymphocytes Auto (Unsp spec) [#/Vol] 0.44 10*3/uL Low 0.83-4.51 [facility] Absolute neutrophil countOrd ered By: on 12-27-2024 Neutrophils (Bld) [#/Vol] 4.8 10*3/uL 2.0-7.7 [facility] Anion gap in Serum or Plasma Ordered By: Charlotte on 12-27-2024 Anion gap [Moles/Vol] 9 mmol/L 5-15 [facility] Automated lymphocyte count a s percentage of total leukocytesOrdered By: on 12-27-2024 Lymphocytes/100 WBC Auto (Unsp spec) 8.1 % Low 19-41 [facility] BUN/creatinine ratioOrdered By: on 12-27-2024 Urea nitrogen/Creatinine [Mass ratio] 29.6 mg/mg High 10-20 [facility] Basophil percentageOrdered B y: on 12-27-2024 Basophils/100 WBC (Bld) 0.2 % 0-1 [facility] Bilirubin, totalOrdered By: Charlotte on 12-27-2024 Bilirubin [Mass/Vol] 0.31 mg/dL 0.00-1.30 [facility] CBC W/Diff, Automatedon Absolute Lymph 0.44 X10 3/uL Low 0.83-4.51 [facility] Comment on above: Performed By: #### L 100.0100, L500.4050 ####[facility] [address] [place], [place], [address] Absolute Neut 4.8 X10 3/uL Normal 2.0-7.7 [facility] Comment on above: Performed By: #### L 100.0100, L500.4050 ####[facility] [address] [place], [address] Basophils/100 WBC (Bld) 0.2 % Normal 0-1 [facility] Comment on above: Performed By: #### L 100.0100, L500.4050 ####[facility] [address] [place], [address] Eosinophils/100 WBC (Bld) 0.0 % Normal 0-5 [facility] Comment on above: Performed By: #### L 100.0100, L500.4050 ####[facility] [address] [place], [address] Erythrocyte distribution width (RBC) [Ratio] 14.2 % Normal 11.6-14.6 [facility] Comment on above: Performed By: #### L 100.0100, L500.4050 ####[facility] [address] [place], [address] Hematocrit (Bld) [Volume fraction] 26.3 % Low 37-47 [facility] Comment on above: Performed By: #### L 100.0100, L500.4050 ####[facility] [address] [place], [address] Hemoglobin (Bld) [Mass/Vol] 8.5 g/dL Low 12.0-15.0 [facility] Comment on above: Performed By: #### L 100.0100, L500.4050 ####[facility] [address] [place], [address] IG% 1.300 High 0.0-0.9 [facility] Comment on above: Result Comment: IG% - Immature Granulocytes (promyelocytes, myelocytes andmetamyelocytes) > 1% indicates that a LEFT SHIFT is Present. Performed By: #### L 100.0100, L500.4050 ####[facility] [address] [place], [address] Lymphocytes/100 WBC (Bld) 8.1 % Low 19-41 [facility] Comment on above: Performed By: #### L 100.0100, L500.4050 ####[facility] [address] [place], [address] MCH (RBC) [Entitic mass] 27.1 pg Normal 27.0-32.0 [facility] Comment on above: Performed By: #### L 100.0100, L500.4050 ####[facility] [address] [place], [address] MCHC (RBC) [Mass/Vol] 32.3 g/dL Normal 32-36 [facility] Comment on above: Performed By: #### L 100.0100, L500.4050 ####[facility] [address] [place], [address] MCV (RBC) [Entitic vol] 83.8 fL Normal 81-99 [facility] Comment on above: Performed By: #### L 100.0100, L500.4050 ####[facility] [address] [place], [address] Monocytes/100 WBC (Bld) 1.7 % Normal 0-10 [facility] Comment on above: Performed By: #### L 100.0100, L500.4050 ####[facility] [address] [place], [address] Neutrophils/100 WBC (Bld) 88.7 % High 47-70 [facility] Comment on above: Performed By: #### L 100.0100, L500.4050 ####[facility] [address] [place], [address] Nucleated RBC (Bld) [#/Vol] 0 10*3/uL Normal 0-5 [facility] Comment on above: Performed By: #### L 100.0100, L500.4050 ####[facility] [address] [place], [address] Platelet mean volume (Bld) [Entitic vol] 10.0 fL Normal 6.2-12.0 [facility] Comment on above: Performed By: #### L 100.0100, L500.4050 ####[facility] [address] [place], [address] Platelets (Bld) [#/Vol] 188 10*3/uL Normal 150-450 [facility] Comment on above: Performed By: #### L 100.0100, L500.4050 ####[facility] [address] [place], [address] RBC (Bld) [#/Vol] 3.14 10*6/uL Low 4.2-5.4 [facility] Comment on above: Performed By: #### L 100.0100, L500.4050 ####[facility] [address] [place], [address] RDW SD 42.8 fl Normal 35.1-43.9 [facility] Comment on above: Performed By: #### L 100.0100, L500.4050 ####[facility] [address] [place], [address] WBC (Bld) [#/Vol] 5.4 10*3/uL Normal 4.4-11.0 [facility] Comment on above: Performed By: #### L 100.0100, L500.4050 ####[facility] [address] [place], [address] CNPDaylin 12-27-2024 CNPN Telephone ([facility]) DENIA GONZALEZ ([id number]) 1955 F Date Time Provider Department 12/27/24 YOSEPH FALL During your visit today, we recorded the following information about you: Sukhi Marrero RN 12/27/2024 2:48 PM Signed Palma Anguiano with [facility] calls to let provider know that patient was admitted to [facility] last evening for COPD exacerbation. Admission notes available within [facility]. KAREN Barney Jesse, APRN.CNP 01/01/2025 8:58 AM Signed Noted. Patient has follow up with Dr. Fall scheduled on 01/19. Nelson Robert APRN.CNP Allergies As of Date: 12/27/2024 (No Known Allergies) Date Reviewed: 11/22/2024 Reviewed by: Gregor Fernandez APRN.CNP - Fully Assessed Reason for Visit: Patient [...] directed. Dx: COPD J44.9 - Nebulizer Accessories [facility] Mask and supplies as needed - [facility] Use as directed to check [...] 07/15/2021 Cholelithiasis (more content not included)... Normal [facility] Carbon dioxide, total [Moles /volume] in Central venous bloodOrdered By: Dionne Porter on 12-27-2024 CO2 [Moles/Vol] 39.4 mmol/L High 21.0-32.0 [facility] Chloride assayOrdered By: Lidya Porter on 12-27-2024 Chloride [Moles/Vol] 92 mmol/L Low 98-108 [facility] Comprehensive Metabolic Prof deni 12-27-2024 Potassium [Moles/Vol] 3.0 mmol/L Low 3.3-5.1 [facility] Comment on above: Result Comment: Hemo lysis present, Results??could be affected.?? AMENDED REPORT 12/27/24834 K previously reported as: 4.2 mmol/LHemolysis present, Results??could be affected.?? Performed By: #### L 100.0100, L500.4050 ####[facility] [address] [place], [address] Electrocardiogram reportOrde red By: Junito Madrid on 12-27-2024 EKG study [facility] Services [address] [place] [address] 12 Lead EKG 12/26/24 1403 MR#: [id number] Acct: [id number] Name: DENIA GONZALEZ Rep #:[id number] : 1955 69 From: Junito contreras MD Attending Dr: Dr. Lynne Schafer MD Status: ADM IN Ordering Dr: Marcel Zarate MD Date: 12/26/24 Location: [facility] Sex: F C Admitted: 12/26/24 Test Reason : ANXIETY Blood Pressure : */* mmHG Vent. Rate : 99 BPM Atrial Rate : 99 BPM P-R Int : 166 ms QRS Dur : 76 ms QT Int : 356 ms P-R-T Axes : 80 44 77 degrees QTcB Int : 456 ms Normal sinus rhythm Right atrial enlargement Borderline ECG Confirmed by Junito Madrid ([id number]), food editor LEORA RESTREPO ([id number]) on 12/27/2024 8:19:45 AM Referred By: ER/AK Confirmed By: Junito Madrid 12/27/24 0819 Date _ Junito Madrid MD CC: Dr. Marcel Zarate MD; Dr. Yoseph Fall MD; Dr. Lynne Schafer MD ~ Signed [facility] Work Phone: Eosinophil percentageOrdered By: Dionne Porter on 12-27-2024 Eosinophils/100 WBC (Bld) 0.0 % 0-5 [facility] Erythrocyte distribution wid th ratioOrdered By: Dionne White on 12-27-2024 Erythrocyte distribution width (RBC) [Ratio] 14.2 % 11.6-14.6 [facility] Erythrocyte distribution wid th standard deviationOrdered By: Dionne White on 12-27-2024 Erythrocyte distribution width (RBC) [Ratio] 42.8 fl 35.1-43.9 [facility] Ferritinon 12-27-2024 Ferritin [Mass/Vol] 35 ng/mL Normal 22-378 [facility] Comment on above: Performed By: #### L 503.6580, L503.6028 ####[facility] [address] [place], [place], [address] Glomerular filtration rate ( GFR) estimation/1.73 sq m using serum, plasma, or whole bOrdered By: Dionne Porter on 12-27-2024 GFR/1.73 sq M.predicted among non-blacks MDRD (S/P/Bld) [Vol rate/Area] 97 mL/min/{1.73_m2} >60 [facility] Comment on above: mL/min/1.73m2 CKD-EP I Creatinine Equation (2020) Gram Stainon 12-27-2024 GS Acceptable Specimen? No (>25 Epithelial cells per/lpf) Gram Stain 4+ Gram positive rods 3+ Gram negative rods 2+ Epithelial cells Normal [facility] Comment on above: Performed By: #### M 100.2000, M100.2400 ####[facility] [address] [place], [place], [address] HH, Hemoglobin AND Hematocri ton 12-27-2024 Hematocrit (Bld) [Volume fraction] 29.0 % Low 37-47 [facility] Comment on above: Performed By: #### L 100.0600 ####[facility] [address] [place], [place], [phone] Hemoglobin (Bld) [Mass/Vol] 9.3 g/dL Low 12.0-15.0 [facility] Comment on above: Performed By: #### L 100.0600 ####[facility] [address] [place], [address] Hematocrit Auto (Bld) [Volum e fraction]Ordered By: Dionne Porter on 12-27-2024 Hematocrit (Bld) [Volume fraction] 26.3 % Low 37-47 [facility] Hemoglobin measurementOrdere d By: Dionne Porter on 12-27-2024 Hemoglobin (Bld) [Mass/Vol] 8.5 g/dL Low 12.0-15.0 [facility] Immature granulocytes/100 WB C Auto (Bld)Ordered By: [facility] on 12-27-2024 Immature granulocytes/100 WBC (Bld) 1.300 % High 0.0-0.9 [facility] Comment on above: IG% - Immature Granu locytes (promyelocytes, myelocytes and metamyelocytes) > 1% indicates that a LEFT SHIFT is Present. Iron measurement (mass/mass) Ordered By: Lynne Schafer on 12-27-2024 Iron (Unsp spec) [Mass/Mass] 17 ug/dL Low 50-170 [facility] Iron+Iron Binding Capacityon 12-27-2024 Iron [Mass/Vol] 17 ug/dL Low 50-170 [facility] Comment on above: Order Comment: off o f am blood work Performed By: #### L 503.6550, L503.6030 ####[facility] [address] [place], [address] IRON SATURATION 6.0 Low 13-59 [facility] Comment on above: Order Comment: off o f am blood work Performed By: #### L 503.6550, L503.6030 ####[facility] [address] [place], [address] TIBC 305 ug/dL Normal 250-450 [facility] Comment on above: Order Comment: off o f am blood work Performed By: #### L 503.6550, L503.6030 ####[facility] [address] [place], [address] UIBC 288 ug/dL Normal 228-428 [facility] Comment on above: Order Comment: off o f am blood work Performed By: #### L 503.6550, L503.6030 ####[facility] [address] [place], [place], [id number] Laboratory - Chemistry and C hemistry - challengeOrdered By: Dionne Porter on 12-27-2024 AST [Catalytic activity/Vol] 20 U/L <32 [facility] MCV (mean corpuscular volume ) determinationOrdered By: Dionne Charlotte on 12-27-2024 MCV (RBC) [Entitic vol] 83.8 fL 81-99 [facility] MR/CON.PCM.PAon 12-27-2024 MR/CON.PCM.PA Normal [facility] Mean corpuscular hemoglobin (MCH) determinationOrdered By: Dionne Charlotte on 12-27-2024 MCH (RBC) [Entitic mass] 27.1 pg 27.0-32.0 [facility] Mean corpuscular hemoglobin concentration (MCHC) determinationOrdered By: [place] on 12-27-2024 MCHC (RBC) [Mass/Vol] 32.3 g/dL 32-36 [facility] Mean platelet volume determi nationOrdered By: Dionne Charlotte on 12-27-2024 Platelet mean volume (Bld) [Entitic vol] 10.0 fL 6.2-12.0 [facility] Monocyte percentageOrdered B y: Dionne Charlotte on 12-27-2024 Monocytes/100 WBC (Bld) 1.7 % 0-10 [facility] Neutrophil percentageOrdered By: White on 12-27-2024 Neutrophils/100 WBC (Bld) 88.7 % High 47-70 [facility] No Panel InformationOrdered By: Lynne Schafer on 12-27-2024 Unsaturated Iron Binding Capacity 288 ug/dL 228-428 [facility] 288 ug/dL 228-428 [facility] No Panel InformationOrdered By: Dionne Porter on 12-27-2024 20 U/L <32 [facility] Nucleated red blood cell per centageOrdered By: Dionne White on 12-27-2024 Nucleated RBC/100 WBC (Bld) [Ratio] 0 % 0-5 [facility] Platelet countOrdered By: Lidya lepe [place] on 12-27-2024 Platelets (Bld) [#/Vol] 188 10*3/uL 150-450 [facility] Potassium measurement (mass/ volume)Ordered By: Dionne Porter on 12-27-2024 Potassium (Unsp spec) [Mass/Vol] 3.0 mmol/L Low 3.3-5.1 [facility] Comment on above: Hemolysis present, R esults could be affected. Previous reported result: 4.2 mmol/LEdited by: AUTOINS on 12/27/24:0835 AMENDED REPORT 12/27/24 0835 K previously reported as: 4.2 mmol/L Hemolysis present, Results could be affected. RBC Auto (Bld) [#/Vol]Ordere d By: Dionne Porter on 12-27-2024 RBC (Bld) [#/Vol] 3.14 10*6/uL Low 4.2-5.4 [facility] RESPIRATORY PANEL MOLECULARo n 12-27-2024 RP PANEL Normal [facility] Comment on above: Performed By: #### M 100.638 ####[facility] [address] [place], [place], [address] Respiratory Cultureon 2024 RESPC Specimen is mostly saliva and as such may not represent an accurate assessment of the patients' pulmonary/respiratory condition. CALLED TO Jose F GARCIA RN 12/27/24 1218 Iman Fierro. REPORT READ BACK BY [JAMILA GARCIA RN] Test not performed Normal [facility] Comment on above: Performed By: #### M 100.2000, M100.2400 ####[facility] [address] [place], [place], [address] Serum creatinine measurement (mass/volume)Ordered By: Dionne Porter on 12-27-2024 Creatinine [Mass/Vol] 0.61 mg/dL Low 0.70-1.20 [facility] Serum globulin measurementOr dered By: Dionne Porter on 12-27-2024 Globulin (S) [Mass/Vol] 2.1 g/dL Low 2.2-4.2 [facility] Serum glucose measurement (m ass/volume)Ordered By: Dionne Porter on 12-27-2024 Glucose [Mass/Vol] 151 mg/dL High 70-99 [facility] Serum or plasma alanine retana otransferase (ALT) measurementOrdered By: Dionne Porter on 12-27-2024 ALT [Catalytic activity/Vol] 20 U/L <35 [facility] Serum or plasma albumin kadi urement (mass/volume)Ordered By: Dionne Porter on 12-27-2024 Albumin [Mass/Vol] 3.8 g/dL 3.4-4.8 [facility] Serum or plasma albumin/glob ulin mass ratioOrdered By: Dionne Porter on 12-27-2024 Albumin/Globulin [Mass ratio] 1.8 {ratio} 0.9-2.4 [facility] Serum or plasma alkaline renetta sphatase measurementOrdered By: Dionne Porter on 12-27-2024 ALP [Catalytic activity/Vol] 46 U/L 35-104 [facility] Serum or plasma calcium kadi urement (mass/volume)Ordered By: Dionne Porter on 12-27-2024 Calcium [Mass/Vol] 8.9 mg/dL 7.6-11.0 [facility] Serum or plasma ferritin ranjtih surement (mass/volume)Ordered By: Lynne Schafer on 12-27-2024 Ferritin [Mass/Vol] 35 ng/mL 22-378 [facility] Serum or plasma iron saturat ion measurement (mass fraction)Ordered By: Lynne Schafer on 12-27-2024 Iron saturation [Mass fraction] 6.0 % Low 13-59 [facility] Serum or plasma urea nitroge n measurement (mass/volume)Ordered By: Dionne Porter on 12-27-2024 Urea nitrogen [Mass/Vol] 18 mg/dL 4-19 [facility] Sodium levelOrdered By: Behzad mn [place] on 12-27-2024 Sodium [Moles/Vol] 140 mmol/L 133-145 [facility] Total proteinOrdered By: Arthur umn [place] on 12-27-2024 Protein [Mass/Vol] 5.9 g/dL 5.9-8.4 [facility] White blood cell (WBC) count Ordered By: Dionne Porter on 12-27-2024 WBC (Bld) [#/Vol] 5.4 10*3/uL 4.4-11.0 [facility] 12 Lead EKGon 12-26-2024 12 Lead EKG Normal [facility] Absolute lymphocyte countOrd ered By: ED PROVIDER on 12-26-2024 Lymphocytes Auto (Unsp spec) [#/Vol] 1.08 10*3/uL 0.83-4.51 [facility] Absolute neutrophil countOrd ered By: ED PROVIDER on 12-26-2024 Neutrophils (Bld) [#/Vol] 8.0 10*3/uL High 2.0-7.7 [facility] Anion gap in Serum or Plasma Ordered By: Marcel Zarate on 12-26-2024 Anion gap [Moles/Vol] 8 mmol/L 5-15 [facility] Assessment of wrist artery p atency prior to arterial punctureOrdered By: Dionne Porter on 12-26-2024 Arterial patency Wrist artery --pre arterial puncture Positive [facility] Automated lymphocyte count a s percentage of total leukocytesOrdered By: ED PROVIDER on 12-26-2024 Lymphocytes/100 WBC Auto (Unsp spec) 11.3 % Low 19-41 [facility] BUN/creatinine ratioOrdered By: Marcel Zarate on 12-26-2024 Urea nitrogen/Creatinine [Mass ratio] 25.1 mg/mg High 10-20 [facility] Basic Metabolic Profile (BMP )on 12-26-2024 BUN/CRE 25.1 RATIO High 10-20 [facility] Comment on above: Performed By: #### L 100.0100, L500.2500 ####[facility] [address] [place], [address] Calcium [Mass/Vol] 8.9 mg/dL Normal 7.6-11.0 [facility] Comment on above: Performed By: #### L 100.0100, L500.2500 ####[facility] [address] [place], [address] Chloride [Moles/Vol] 88 mmol/L Low 98-108 [facility] Comment on above: Performed By: #### L 100.0100, L500.2500 ####[facility] [address] [place], [address] CO2 [Moles/Vol] 41.6 mmol/L High 21.0-32.0 [facility] Comment on above: Performed By: #### L 100.0100, L500.2500 ####[facility] [address] [place], [address] Creatinine [Mass/Vol] 0.64 mg/dL Low 0.70-1.20 [facility] Comment on above: Performed By: #### L 100.0100, L500.2500 ####[facility] [address] [place], [address] ECRCL 65.40 ml/min Normal 50-250 [facility] Comment on above: Performed By: #### L 100.0100, L500.2500 ####[facility] [address] [place], [address] GAP 8 Normal 5-15 [facility] Comment on above: Performed By: #### L 100.0100, L500.2500 ####[facility] [address] [place], [address] GFR/1.73 sq M.predicted among non-blacks MDRD (S/P/Bld) [Vol rate/Area] 96 mL/min/{1.73_m2} Normal >60 [facility] Comment on above: Result Comment: mL/m in/1.73m2 CKD-EPI Creatinine Equation (2020) Performed By: #### L 100.0100, L500.2500 ####[facility] [address] [place], [address] Glucose [Mass/Vol] 112 mg/dL High 70-99 [facility] Comment on above: Performed By: #### L 100.0100, L500.2500 ####[facility] [address] [place], [address] Potassium [Moles/Vol] 4.0 mmol/L Normal 3.3-5.1 [facility] Comment on above: Performed By: #### L 100.0100, L500.2500 ####[facility] [address] [place], [address] Sodium [Moles/Vol] 137 mmol/L Normal 133-145 [facility] Comment on above: Performed By: #### L 100.0100, L500.2500 ####[facility] [address] [place], [address] Urea nitrogen [Mass/Vol] 16 mg/dL Normal 4-19 [facility] Comment on above: Performed By: #### L 100.0100, L500.2500 ####[facility] [address] [place], [address] Basophil percentageOrdered B y: ED PROVIDER on 12-26-2024 Basophils/100 WBC (Bld) 0.1 % 0-1 [facility] Blood Gases by CPSon 025 CHAO TEST Positive Normal [facility] Comment on above: Performed By: #### L 9000.0800 ####[facility] [address] [place], [address] BE > 30 High -2 to +2 [facility] Comment on above: Performed By: #### L 9000.0800 ####[facility] [address] [place], [address] Blood Gas Type ART Normal [facility] Comment on above: Performed By: #### L 9000.0800 ####[facility] [address] [place], [address] FI02 2.0 Normal [facility] Comment on above: Performed By: #### L 9000.0800 ####[facility] [address] [place], [address] HCO3 (Bld) [Moles/Vol] 55.5 mmol/L High 22-26 [facility] Comment on above: Performed By: #### L 9000.0800 ####[facility] [address] [place], [address] Mode Not entered Normal [facility] Comment on above: Performed By: #### L 9000.0800 ####[facility] [address] [place], [address] O2 Delivery Dev Cannula Normal [facility] Comment on above: Performed By: #### L 9000.0800 ####[facility] [address] [place], [address] pCO2 81.2 mmHg Invalid Interpretation Code 35-45 [facility] Comment on above: Performed By: #### L 9000.0800 ####[facility] [address] [place], [address] pH (Bld) 7.44 [pH] Normal 7.35-7.45 [facility] Comment on above: Performed By: #### L 9000.0800 ####[facility] [address] [place], [address] PO2 106 mmHG High 75-100 [facility] Comment on above: Performed By: #### L 9000.0800 ####[facility] [address] [place], [address] Read Back By Yes Normal [facility] Comment on above: Performed By: #### L 9000.0800 ####[facility] [address] [place], [address] Results To White Normal [facility] Comment on above: Performed By: #### L 9000.0800 ####[facility] [address] [place], [address] SITE L Radial Normal [facility] Comment on above: Performed By: #### L 9000.0800 ####[facility] [address] [place], [address] SO2 98 Normal 95-99 [facility] Comment on above: Performed By: #### L 9000.0800 ####[facility] [address] [place], [address] Time Given 20:42:58 Normal [facility] Comment on above: Performed By: #### L 9000.0800 ####[facility] [address] [place], [address] TOTAL CO2 > 50 Normal [facility] Comment on above: Performed By: #### L 9000.0800 ####[facility] [address] [place], [address] Blood base excess determinat ionOrdered By: Dionne Porter on 12-26-2024 Base excess Calc (BldV) [Moles/Vol] mmol/L High -2-2 [facility] Blood bicarbonate measuremen tOrdered By: Dionne Porter on 12-26-2024 HCO3 (Bld) [Moles/Vol] 55.5 mmol/L High 22-26 [facility] CBC W/Diff, Automatedon Absolute Lymph 1.08 X10 3/uL Normal 0.83-4.51 [facility] Comment on above: Performed By: #### L 100.0100, L500.2500 ####[facility] [address] [place], [address] Absolute Neut 8.0 X10 3/uL High 2.0-7.7 [facility] Comment on above: Performed By: #### L 100.0100, L500.2500 ####[facility] [address] [place], [address] Basophils/100 WBC (Bld) 0.1 % Normal 0-1 [facility] Comment on above: Performed By: #### L 100.0100, L500.2500 ####[facility] [address] [place], [address] Eosinophils/100 WBC (Bld) 0.1 % Normal 0-5 [facility] Comment on above: Performed By: #### L 100.0100, L500.2500 ####[facility] [address] [place], [address] Erythrocyte distribution width (RBC) [Ratio] 14.0 % Normal 11.6-14.6 [facility] Comment on above: Performed By: #### L 100.0100, L500.2500 ####[facility] [address] [place], [address] Hematocrit (Bld) [Volume fraction] 29.0 % Low 37-47 [facility] Comment on above: Performed By: #### L 100.0100, L500.2500 ####[facility] [address] [place], [address] Hemoglobin (Bld) [Mass/Vol] 9.2 g/dL Low 12.0-15.0 [facility] Comment on above: Performed By: #### L 100.0100, L500.2500 ####[facility] [address] [place], [address] IG% 0.800 Normal 0.0-0.9 [facility] Comment on above: Result Comment: IG% - Immature Granulocytes (promyelocytes, myelocytes andmetamyelocytes) > 1% indicates that a LEFT SHIFT is Present. Performed By: #### L 100.0100, L500.2500 ####[facility] [address] [place], [address] Lymphocytes/100 WBC (Bld) 11.3 % Low 19-41 [facility] Comment on above: Performed By: #### L 100.0100, L500.2500 ####[facility] [address], [address] MCH (RBC) [Entitic mass] 26.8 pg Low 27.0-32.0 [facility] Comment on above: Performed By: #### L 100.0100, L500.2500 ####[facility] [address] [place], [address] MCHC (RBC) [Mass/Vol] 31.7 g/dL Low 32-36 [facility] Comment on above: Performed By: #### L 100.0100, L500.2500 ####[facility] [address] [place], [address] MCV (RBC) [Entitic vol] 84.5 fL Normal 81-99 [facility] Comment on above: Performed By: #### L 100.0100, L500.2500 ####[facility] [address] [place], [address] Monocytes/100 WBC (Bld) 4.5 % Normal 0-10 [facility] Comment on above: Performed By: #### L 100.0100, L500.2500 ####[facility] [address] [place], [address] Neutrophils/100 WBC (Bld) 83.2 % High 47-70 [facility] Comment on above: Performed By: #### L 100.0100, L500.2500 ####[facility] [address] [place], [address] Nucleated RBC (Bld) [#/Vol] 0 10*3/uL Normal 0-5 [facility] Comment on above: Performed By: #### L 100.0100, L500.2500 ####[facility] [address] [place], [address] Platelet mean volume (Bld) [Entitic vol] 9.3 fL Normal 6.2-12.0 [facility] Comment on above: Performed By: #### L 100.0100, L500.2500 ####[facility] [address] [place], [address] Platelets (Bld) [#/Vol] 219 10*3/uL Normal 150-450 [facility] Comment on above: Performed By: #### L 100.0100, L500.2500 ####[facility] [address] [place], [address] RBC (Bld) [#/Vol] 3.43 10*6/uL Low 4.2-5.4 [facility] Comment on above: Performed By: #### L 100.0100, L500.2500 ####[facility] [address] [place], [address] RDW SD 43.0 fl Normal 35.1-43.9 [facility] Comment on above: Performed By: #### L 100.0100, L500.2500 ####[facility] [address] [place], [address] WBC (Bld) [#/Vol] 9.6 10*3/uL Normal 4.4-11.0 [facility] Comment on above: Performed By: #### L 100.0100, L500.2500 ####[facility] [address] [place], [address] CNPNon 12-26-2024 CNPN Telephone (INTMWS) DENIA GONZALEZ ([id number]) 1955 F Date Time Provider Department 12/26/24 YOSEPH FALL During your visit today, we recorded the following information about you: Ban Villafana LPN 12/26/2024 9:57 AM Signed Electronic PA rec'd and completed. Prior authorization approved Payer: [employer] [phone] Note from payer: CaseId:[id number];Stat us:Approved;Review Type:Prior Auth;Coverage Start Date:11/22/2024;Cover age End [...] to its destination. To be filled at: [address] [place] [address] [address] [facility] - [phone] Allergies As of Date: 12/26/2024 (No Known Allergies) Date Reviewed: 11/22/2024 Reviewed by: Gregor Fernandez APRN.TOE LINING CLOSER - Fully Assessed Reason for Visit: Insurance [...] directed. Dx: COPD J44.9 - Nebulizer Accessories [facility] Mask and supplies as needed - PULSE OXIMETER [facility] Use as directed to check oxygen saturation level - ammonium lactate (AMLACTIN) 12 % lotion Apply 1 application to affected area as needed for Dry Skin. - losartan (COZAAR) 50 mg tablet Take 0.5 tablets by mouth once daily. - OXYGEN, HOME THERAPY, 2.5 L/min by Nasal Cannula route continuous. Use as directred - Disposable Gloves (DISPOSABLE LATEX-FREE GLOVES) [facility] 1 Box once every month. ICD 10: [...] unspe* 08/11/ (more content not included)... Normal [facility] Carbon dioxide, total [Moles /volume] in Central venous bloodOrdered By: Marcel Zarate on 12-26-2024 CO2 [Moles/Vol] 41.6 mmol/L High 21.0-32.0 [facility] Chest 1 View (Portable)on Chest 1 View (Portable) Normal [facility] Chloride assayOrdered By: Seun Zarate on 12-26-2024 Chloride [Moles/Vol] 88 mmol/L Low 98-108 [facility] Emergency Department Summary on 12-26-2024 Emergency Department Summary Normal [facility] Eosinophil percentageOrdered By: ED PROVIDER on 12-26-2024 Eosinophils/100 WBC (Bld) 0.1 % 0-5 [facility] Erythrocyte distribution wid th ratioOrdered By: ED PROVIDER on 12-26-2024 Erythrocyte distribution width (RBC) [Ratio] 14.0 % 11.6-14.6 [facility] Erythrocyte distribution wid th standard deviationOrdered By: ED PROVIDER on 12-26-2024 Erythrocyte distribution width (RBC) [Ratio] 43.0 fl 35.1-43.9 [facility] Ferritinon 12-26-2024 Ferritin [Mass/Vol] 22 ng/mL Normal 22-378 [facility] Comment on above: Order Comment: Comme nts: may add to ED labs Performed By: #### L 503.6550, L503.6030, L501.5200 ####[facility] [address] [place], [address] Glomerular filtration rate ( GFR) estimation/1.73 sq m using serum, plasma, or whole bOrdered By: Marcel Zarate on 12-26-2024 GFR/1.73 sq M.predicted among non-blacks MDRD (S/P/Bld) [Vol rate/Area] 96 mL/min/{1.73_m2} >60 [facility] Comment on above: mL/min/1.73m2 CKD-EP I Creatinine Equation (2020) Gram stainOrdered By: Dionne Porter on 12-26-2024 Microscopic observation Gram stain Nom (Unsp spec) [facility] H AND P Exam - Hospitaliston 12-26-2024 H&P Exam - Hospitalist [facility] HH, Hemoglobin AND Hematocri ton 12-26-2024 Hematocrit (Bld) [Volume fraction] 26.5 % Low 37-47 [facility] Comment on above: Performed By: #### L 100.0600 ####[facility] [address] [place], [place], [id number]) Hemoglobin (Bld) [Mass/Vol] 8.5 g/dL Low 12.0-15.0 [facility] Comment on above: Performed By: #### L 100.0600 ####[facility] [address] [place], [address](153) Hematocrit Auto (Bld) [Volum e fraction]Ordered By: ED PROVIDER on 12-26-2024 Hematocrit (Bld) [Volume fraction] 29.0 % Low 37-47 [facility] Hemoglobin measurementOrdere d By: ED PROVIDER on 12-26-2024 Hemoglobin (Bld) [Mass/Vol] 9.2 g/dL Low 12.0-15.0 [facility] Immature granulocytes/100 WB C Auto (Bld)Ordered By: ED PROVIDER on 12-26-2024 Immature granulocytes/100 WBC (Bld) 0.800 % 0.0-0.9 [facility] Comment on above: IG% - Immature Granu locytes (promyelocytes, myelocytes and metamyelocytes) > 1% indicates that a LEFT SHIFT is Present. Iron+Iron Binding Capacityon 12-26-2024 Iron [Mass/Vol] 25 ug/dL Low 50-170 [facility] Comment on above: Order Comment: Comme nts: may add to ED labs Performed By: #### L 503.6550, L503.6030, L501.5200 ####[facility] [address] [place], [address] IRON SATURATION 8.0 Low 13-59 [facility] Comment on above: Order Comment: Comme nts: may add to ED labs Performed By: #### L 503.6550, L503.6030, L501.5200 ####[facility] [address] [place], [address] TIBC 313 ug/dL Normal 250-450 [facility] Comment on above: Order Comment: Comme nts: may add to ED labs Performed By: #### L 503.6550, L503.6030, L501.5200 ####[facility] [address] [place], [address] UIBC 288 ug/dL Normal 228-428 [facility] Comment on above: Order Comment: Comme nts: may add to ED labs Performed By: #### L 503.6550, L503.6030, L501.5200 ####[facility] [address] [place], [address] L501.4021on 12-26-2024 Trop T High Sen 25 ng/L High <=14 [facility] Comment on above: Performed By: #### L 501.4021 ####[facility] [address] [place], [address] L509.7001on 12-26-2024 Procalcitonin 0.04 ng/mL Normal <=0.10 [facility] Comment on above: Result Comment: Inte rpretation:<0.10-0.25 ng/mL: Antibiotic therapy discouraged. Bacterialinfection unlikely.0.25-0.50 ng/mL: Antibiotic therapy encouraged. Bacterialinfection possible.>0.50 ng/mL: Antibiotic therapy strongly encouraged.Suggestive of presence of bacterial infection.PCT should always be interpreted in the clinical context ofthe patient. Therefore, clinicians should use the PCTresults in conjunction with other laboratory findings andclinical signs of the patient. Performed By: #### L 509.7001 ####[facility] [address] [facility] [place], [address] MCV (mean corpuscular volume ) determinationOrdered By: ED PROVIDER on 12-26-2024 MCV (RBC) [Entitic vol] 84.5 fL 81-99 [facility] Magnesiumon 12-26-2024 Magnesium [Mass/Vol] 1.9 mg/dL Normal 1.5-2.2 [facility] Comment on above: Order Comment: Comme nts: may add to ED labs Performed By: #### L 503.6550, L503.6030, L501.5200 ####[facility] [address] [place], [place], [address] Magnesium measurement (mass/ volume)Ordered By: Dionne Porter on 12-26-2024 Magnesium (Unsp spec) [Mass/Vol] 1.9 mg/dL 1.5-2.2 [facility] Mean corpuscular hemoglobin (MCH) determinationOrdered By: ED PROVIDER on 12-26-2024 MCH (RBC) [Entitic mass] 26.8 pg Low 27.0-32.0 [facility] Mean corpuscular hemoglobin concentration (MCHC) determinationOrdered By: ED PROVIDER on 12-26-2024 MCHC (RBC) [Mass/Vol] 31.7 g/dL Low 32-36 [facility] Mean platelet volume determi nationOrdered By: ED PROVIDER on 12-26-2024 Platelet mean volume (Bld) [Entitic vol] 9.3 fL 6.2-12.0 [facility] Measurement, pHOrdered By: Sheba Porter on 12-26-2024 pH (Unsp spec) 7.44 [pH] 7.35-7.45 [facility] Microbial respiratory cultur eOrdered By: Dionne Porter on 12-26-2024 Microorganism identified Cx Nom (Unsp spec) [facility] Monocyte percentageOrdered B y: ED PROVIDER on 12-26-2024 Monocytes/100 WBC (Bld) 4.5 % 0-10 [facility] Neutrophil percentageOrdered By: ED PROVIDER on 12-26-2024 Neutrophils/100 WBC (Bld) 83.2 % High 47-70 [facility] No Panel InformationOrdered By: Dionne Porter on 12-26-2024 Bld Gas Crit Called To/Read Back By Yes [facility] Blood Gas Notified Time 20:42:58 [facility] Blood Gas Notified Whom [place] [facility] Blood Gas Sample Site L Radial [facility] Blood Gas Specimen Type ART [facility] Blood Gas Vent Mode Not entered [facility] Oxygen Delivery Device Cannula [facility] L Radial [facility] Not entered [facility] Cannula [facility] 20:42:58 [facility] Yes [facility] Nucleated red blood cell per centageOrdered By: ED PROVIDER on 12-26-2024 Nucleated RBC/100 WBC (Bld) [Ratio] 0 % 0-5 [facility] Platelet countOrdered By: ED PROVIDER on 12-26-2024 Platelets (Bld) [#/Vol] 219 10*3/uL 150-450 [facility] Potassium measurement (mass/ volume)Ordered By: Marcel Zarate on 12-26-2024 Potassium (Unsp spec) [Mass/Vol] 4.0 mmol/L 3.3-5.1 [facility] Procalcitonin [Mass/volume] in Serum or Plasma by ImmunoassayOrdered By: Dionne Porter on 12-26-2024 Procalcitonin IA [Mass/Vol] 0.04 ng/mL <0.11 [facility] Comment on above: Interpretation:<0.10 -0.25 ng/mL: [...] RBC (Bld) [#/Vol] 3.43 10*6/uL Low 4.2-5.4 [facility] Respiratory pathogens detect ion panel by molecular detection methodOrdered By: Dionne Porter on 12-26-2024 Respiratory pathogens DNA and RNA panel ASPEN+probe (Resp) [facility] Serum creatinine measurement (mass/volume)Ordered By: Marcel Zarate on 12-26-2024 Creatinine [Mass/Vol] 0.64 mg/dL Low 0.70-1.20 [facility] Serum glucose measurement (m ass/volume)Ordered By: Marcel Zarate on 12-26-2024 Glucose [Mass/Vol] 112 mg/dL High 70-99 [facility] Serum or plasma calcium kadi urement (mass/volume)Ordered By: Marcel Zarate on 12-26-2024 Calcium [Mass/Vol] 8.9 mg/dL 7.6-11.0 [facility] Serum or plasma urea nitroge n measurement (mass/volume)Ordered By: Marcel Zarate on 12-26-2024 Urea nitrogen [Mass/Vol] 16 mg/dL 4-19 [facility] Sodium levelOrdered By: Haider Zarate on 12-26-2024 Sodium [Moles/Vol] 137 mmol/L 133-145 [facility] Troponin T HS 2 HRon 025 Trop T High Sen 25 ng/L High <=14 [facility] Comment on above: Performed By: #### L 499.0042 ####[facility] [address] [place], [address] Troponin T HS 4 HRon 025 Trop T High Sen 26 ng/L High <=14 [facility] Comment on above: Performed By: #### L 499.0043 ####[facility] [address] [place], [address] Troponin T.cardiac [Mass/vol ume] in Serum or Plasma by High sensitivity methodOrdered By: Marcel Zarate on 12-26-2024 Troponin T.cardiac High sensitivity method [Mass/Vol] 26 ng/L High <14 [facility] Troponin T.cardiac High sensitivity method [Mass/Vol] 25 ng/L High <14 [facility] Troponin T.cardiac High sensitivity method [Mass/Vol] 25 ng/L High <14 [facility] Comment on above: Delta: 23 on 531 White blood cell (WBC) count Ordered By: ED PROVIDER on 12-26-2024 WBC (Bld) [#/Vol] 9.6 10*3/uL 4.4-11.0 [facility] DENIA GONZALEZ ([id number]) 1955 F Date Time Provider Department 12/22/24 [facility] During your visit today, we recorded the following information about you: Judy Bliss, KAREN 12/22/2024 8:58 AM Signed Patient's Daughter In Law Sinan calls and states that patient has [...] Date Reviewed: 11/22/2024 Reviewed by: Gregor Fernandez APRN.TOE LINING CLOSER - Fully Assessed Reason for Visit: Patient [...] directed. Dx: COPD J44.9 - Nebulizer Accessories [facility] Mask and supplies as needed - PULSE OXIMETER [facility] Use as directed to check oxygen saturation level - ammonium lactate (AMLACTIN) 12 % lotion Apply 1 application to affected area as needed for Dry Skin. - losartan (COZAAR) 50 mg tablet Take 0.5 tablets by mouth once daily. - OXYGEN, HOME THERAPY, 2.5 L/min by Nasal Cannula route continuous. Use as directred - Disposable Gloves (DISPOSABLE LATEX-FREE GLOVES) [facility] 1 Box once every month. ICD 10: [...] NOS [C34. (more content not included)... Normal [facility] CBC W Auto Differential pane l (Bld)on 12-15-2024 Basophils (Bld) [#/Vol] 0 10*3/uL 0.0 - 0.2 10*3/uL [facility] Basophils/100 WBC (Bld) 0.1 % 0.0 - 2.0 % [facility] [facility] Eosinophils (Bld) [#/Vol] 0 10*3/uL 0.0 - 0.5 10*3/uL [facility] [facility] Eosinophils/100 WBC (Bld) 0.1 % 0.0 - 6.0 % [facility] [facility] Erythrocyte distribution width (RBC) [Ratio] 13.6 % 11.5 - 15.0 % [facility] Hematocrit (Bld) [Volume fraction] 33.3 % Low 35.0 - 47.0 % [facility] Hemoglobin (Bld) [Mass/Vol] 10.5 g/dL Low 11.7 - 16.0 g/dL [facility] Immature granulocytes (Bld) [#/Vol] 0.1 10*3/uL High NINF - 0.1 10*3/uL [facility] Immature granulocytes/100 WBC (Bld) 0.8 % 0.0 - 2.0 % [facility] Interpretation and review of laboratory results Abnormal [facility] [facility] Lymphocytes (Bld) [#/Vol] 0.8 10*3/uL Low 1.0 - 4.3 10*3/uL [facility] [facility] Lymphocytes/100 WBC (Bld) 9.8 % Low 15.0 - 45.0 % [facility] MCH (RBC) [Entitic mass] 26.3 pg 26. 0 - 34.0 pg [facility] MCHC (RBC) [Mass/Vol] 31.5 % 30.5 - 36.0 % [facility] MCV (RBC) [Entitic vol] 83.5 fL 77.0 - 99.0 fL [facility] [facility] Monocytes (Bld) [#/Vol] 0.2 10*3/uL 0.0 - 0.9 10*3/uL [facility] Monocytes/100 WBC (Bld) 1.9 % Low 5.0 - 13.0 % [facility] Neutrophils (Bld) [#/Vol] 7.3 10*3/uL 1.8 - 7.5 10*3/uL [facility] Neutrophils/100 WBC (Bld) 87.3 % High 38.0 - 82.0 % [facility] Nucleated RBC/100 WBC (Bld) [Ratio] 0 % [facility] Platelet mean volume (Bld) [Entitic vol] 10.2 fL 9.0 - 12.7 fL [facility] Platelets (Bld) [#/Vol] 239 10*3/uL 140 - 440 10*3/uL [facility] RBC (Bld) [#/Vol] 3.99 10*6/uL 3.80 - 5.2 0 10*6/uL [facility] WBC (Bld) [#/Vol] 8.3 10*3/uL 3.6 - 10.7 10*3/uL [facility] CBC WITH AUTO DIFFERENTIALon 12-15-2024 Basophils (Bld) [#/Vol] 0.0 10*3/uL Normal 0.0-0.2 [facility] Comment on above: Performed By: #### L [id number] ####Panel Beater: EDDA MCKINLEY ([id number])[facility] ([facility])[address] [place] [address] Basophils/100 WBC (Bld) 0.1 % Normal 0.0-2.0 S [facility] Comment on above: Performed By: #### L [id number] ####Panel Beater: EDDA MCKINLEY ([id number])[facility] Eosinophils (Bld) [#/Vol] 0.0 10*3/uL Normal 0.0-0.5 [facility] Comment on above: Performed By: #### L [id number] ####Panel Beater: EDDA MCKINLEY ([id number])[facility])[address] [place] [address] Eosinophils/100 WBC (Bld) 0.1 % Normal 0.0-6.0 [facility] Comment on above: Performed By: #### L [id number] ####Panel Beater: EDDA MCKINLEY ([id number])[address] Erythrocyte distribution width (RBC) [Ratio] 13.6 % Normal 11.5-15.0 [facility] Comment on above: Performed By: #### L [id number] ####Panel Beater: EDDA MCKINLEY ([id number])[address] Hematocrit (Bld) [Volume fraction] 33.3 % Low 35.0-47.0 [facility] Comment on above: Performed By: #### L [id number] ####Panel Beater: EDDA MCKINLEY ([id number])[address] Hemoglobin (Bld) [Mass/Vol] 10.5 g/dL Low 11.7-16.0 [facility] Comment on above: Performed By: #### L [id number] ####Panel Beater: EDDA MCKINLEY ([id number])[address] IMMATURE GRANS % 0.8 % Normal 0.0-2.0 [facility] Comment on above: Performed By: #### L [id number] ####Panel Beater: EDDA MCKINLEY ([id number])[address] IMMATURE GRANS ABSOLUTE 0.1 10*3/uL High <0.1 [facility] Comment on above: Performed By: #### L [id number] ####Panel Beater: EDDA MCKINLEY ([id number])[facility])[address] [place] [address] Lymphocytes (Bld) [#/Vol] 0.8 10*3/uL Low 1.0-4.3 [facility] Comment on above: Performed By: #### L [id number] ####Panel Beater: EDDA MCKINLEY ([id number])[facility])[address] [place] [address] Lymphocytes/100 WBC (Bld) 9.8 % Low 15.0-45.0 [facility] Comment on above: Performed By: #### L [id number] ####Panel Beater: EDDA MCKINLEY ([id number])[facility])[address] [place] [address] MCH (RBC) [Entitic mass] 26.3 pg Normal 26.0-34.0 [facility] Comment on above: Performed By: #### L [id number] ####Panel Beater: EDDA MCKINLEY ([id number])[facility])[address] [place] [address] MCHC 31.5 % Normal 30.5-36.0 [facility] Comment on above: Performed By: #### L [id number] ####Panel Beater: EDDA MCKINLEY ([id number])[facility])[address] [place] [address] MCV (RBC) [Entitic vol] 83.5 fL Normal 77.0-99.0 [facility] Comment on above: Performed By: #### L [id number] ####Panel Beater: EDDA MCKINLEY ([id number])[facility])[address] [place] [address] Monocytes (Bld) [#/Vol] 0.2 10*3/uL Normal 0.0-0.9 [facility] Comment on above: Performed By: #### L [id number] ####Panel Beater: EDDA MCKINLEY ([id number])[facility] ([facility])[address] [place] [address] [place] Monocytes/100 WBC (Bld) 1.9 % Low 5.0-13.0 [facility] Comment on above: Performed By: #### L [id number] ####Panel Beater: DEDA MCKINLEY ([id number])[facility] ([facility])[address] [place] [address] NEUTROPHILS ABSOLUTE 7.3 10*3/uL Normal 1.8-7.5 [facility] Comment on above: Performed By: #### L [id number] ####Panel Beater: EDDA MCKINLEY ([id number])[facility] ([facility])[address] [place] [address] Neutrophils/100 WBC (Bld) 87.3 % High 38.0-82.0 [facility] Comment on above: Performed By: #### L [id number] ####Panel Beater: EDDA MCKINLEY ([id number])[facility] ([facility])[address] [place] [address] NRBC 0.0 /100 WBCs Normal 0.0-2.0 [facility] Comment on above: Performed By: #### L [id number] ####Panel Beater: EDDA MCKINLEY ([id number])[facility] ([facility])[address] [place] [address] Platelet mean volume (Bld) [Entitic vol] 10.2 fL Normal 9.0-12.7 [facility] Comment on above: Performed By: #### L [id number] ####Panel Beater: EDDA MCKINLEY ([id number])[facility] ([facility])[address] [place] [address] [place] Platelets (Bld) [#/Vol] 239 10*3/uL Normal 140-440 [facility] Comment on above: Performed By: #### L [id number] ####Panel Beater: EDDA MCKINLEY ([id number])[facility] ([facility])[address] [place] [address] RBC (Bld) [#/Vol] 3.99 10*6/uL Normal 3.80-5.20 [facility] Comment on above: Performed By: #### L [id number] ####Panel Beater: EDDA MCKINLEY ([id number])[facility] ([facility])[address] [place] [address] WBC (Bld) [#/Vol] 8.3 10*3/uL Normal 3.6-10.7 [facility] Comment on above: Performed By: #### L [id number] ####Panel Beater: EDDA MCKINLEY ([id number])[facility])[address] [place] [address] COMPREHENSIVE METABOLIC PANE Eddie 12-15-2024 Albumin [Mass/Vol] 3.7 g/dL Normal 3.4-4.8 [facility] Comment on above: Performed By: #### L AB17 ####Panel Beater: EDDA MCKINLEY ([id number])[facility] ([facility])[address] [place] [address] ALP [Catalytic activity/Vol] 49 U/L Normal 40-150 [facility] Comment on above: Performed By: #### L AB17 ####Panel Beater: EDDA MCKINLEY ([id number])[facility])[address] [place] [address] ALT [Catalytic activity/Vol] 16 U/L Normal <30 [facility] Comment on above: Performed By: #### L AB17 ####Panel Beater: EDDA MCKINLEY ([id number])[facility])[address] [place] [address] Anion gap [Moles/Vol] 7 mmol/L Normal 3-13 [facility] Comment on above: Performed By: #### L AB17 ####Panel Beater: EDDA MCKINLEY ([id number])[facility])[address] [place] [address] AST [Catalytic activity/Vol] 18 U/L Normal <34 [facility] Comment on above: Performed By: #### L AB17 ####Panel Beater: EDDA MCKINLEY ([id number])[facility])[address] [place] [address] Bilirubin [Mass/Vol] 0.4 mg/dL Normal <1.2 [facility] Comment on above: Performed By: #### L AB17 ####Panel Beater: EDDA MCKINLEY ([id number])[facility])[address] [place] [address] Calcium [Mass/Vol] 8.6 mg/dL Low 8.8-10.0 [facility] Comment on above: Performed By: #### L AB17 ####Panel Beater: EDDA MCKINLEY ([id number])[facility])[address] [place] [address] Chloride [Moles/Vol] 88 mmol/L Low 98-107 [facility] Comment on above: Performed By: #### L AB17 ####Panel Beater: EDDA MCKINLEY ([id number])[facility] ([facility])[address] [place] [address] CO2 [Moles/Vol] 40 mmol/L High 23-31 [facility] Comment on above: Performed By: #### L AB17 ####Panel Beater: EDDA MCKINLEY ([id number])[facility])[address] [place] [address] Creatinine [Mass/Vol] 0.72 mg/dL Normal 0.57-1.11 [facility] Comment on above: Performed By: #### L AB17 ####Panel Beater: EDDA MCKINLEY ([id number])[facility])[address] [place] [address] GLOMERULAR FILTRATION RATE ML/MIN/1.73 SQ M.PREDICTED >90.0 Normal >60.0 [facility] Comment on above: Result Comment: Calc ulation based on the Chronic Kidney Disease Epidemiology Collaboration (CKD-EPI) equation refit without adjustment for race Performed By: #### L AB17 ####Panel Beater: EDDA MCKINLEY ([id number])[facility] ([facility])[address] [place] [address] Glucose [Mass/Vol] 114 mg/dL Normal 82-115 [facility] Comment on above: Performed By: #### L AB17 ####Panel Beater: EDDA MCKINLEY ([id number])[facility] ([facility])[address] [place] [address] Potassium [Moles/Vol] 4.3 mmol/L Normal 3.5-5.1 [facility] Comment on above: Result Comment: [facility] potassium values may be up to 0.5 mmol/L lower than serum values. Performed By: #### L AB17 ####Panel Beater: EDDA MCKINLEY ([id number])[facility] ([facility])[address] [place] [address] Protein [Mass/Vol] 6.5 g/dL Normal 6.4-8.3 [facility] Comment on above: Performed By: #### L AB17 ####Panel Beater: EDDA MCKINLEY ([id number])[facility] ([facility])[address] [place] [address] Sodium [Moles/Vol] 135 mmol/L Low 136-145 [facility] Comment on above: Performed By: #### L AB17 ####Panel Beater: EDDA MCKINLEY ([id number])[facility])[address] [place] [address] Urea nitrogen [Mass/Vol] 19 mg/dL Normal 9-23 [facility] Comment on above: Performed By: #### L AB17 ####Panel Beater: EDDA MCKINLEY ([id number])[facility] ([facility])[address] [place] [address] Comprehensive metabolic 1998 panelon 12-15-2024 Albumin [Mass/Vol] 3.7 g/dL 3.4 - 4.8 g/dL [facility] ALP [Catalytic activity/Vol] 49 U/L 40 - 150 U/L [facility] ALT [Catalytic activity/Vol] 16 U/L NINF - 30 U/L [facility] Anion gap [Moles/Vol] 7 mmol/L 3 - 13 mmol/L [facility] AST [Catalytic activity/Vol] 18 U/L NINF - 34 U/L [facility] Bilirubin [Mass/Vol] 0.4 mg/dL NINF - 1.2 mg/dL [facility] Calcium [Mass/Vol] 8.6 mg/dL Low 8.8 - 10. 0 mg/dL [facility] Chloride [Moles/Vol] 88 mmol/L Low 98 - 10 7 mmol/L [facility] CO2 [Moles/Vol] 40 mmol/L High 23 - 31 mmol/L [facility] Creatinine [Mass/Vol] 0.72 mg/dL 0.57 - 1.11 mg/dL [facility] GFR/1.73 sq M.predicted (S/P/Bld) [Vol rate/Area] - PINF [facility] Comment on above: Calculation based on the Chronic Kidney Disease Epidemiology Collaboration (CKD-EPI) equation refit without adjustment for race Glucose [Mass/Vol] 114 mg/dL 82 - 115 mg/dL [facility] Interpretation and review of laboratory results Abnormal [facility] Potassium [Moles/Vol] 4.3 mmol/L 3.5 - 5.1 mmol/L [facility] Comment on above: Plasma potassium abdulkadir ues may be up to 0.5 mmol/L lower than serum values. Protein [Mass/Vol] 6.5 g/dL 6.4 - 8.3 g/dL [facility] Sodium [Moles/Vol] 135 mmol/L Low 136 - 145 mmol/L [facility] Urea nitrogen [Mass/Vol] 19 mg/dL 9 - 23 mg/d L [facility] Office Visiton 12-15-2024 Follow-up visit [id number] Kai Gonzalez 1955 F Date Provider Department Center 12/15/2024 [id number] CORBETT [facility] [address] Family History Problem Relation Age of Onset Hypertension Mother Throat cancer Mother Hypertension Father Stomach cancer Father Family Status - Relation Status Age at Mother Father Level of Service:51487 [place] OFFICE/OP CONSLTJ NEW/EST PT HIGH MDM 55 MINUTES Reason for Visit and Comments: Cardiac Valve Problem [1334] New Patient [542] - Heart Valve Clinic Normal [facility] Follow-up visit [id number] Kai Gonzalez 1955 F Date Provider Department Center 12/15/2024 [id number] SHEA [facility] [address] Ar Family History Problem Relation Age of Onset Hypertension Mother Throat cancer Mother Hypertension Father Stomach cancer Father Family Status - Relation Status Age at Mother Father Level of Service:71350 [place] OFFICE/OUTPATIENT NEW HIGH MDM 60 MINUTES Reason for Visit and Comments: Cardiac Valve Problem [1334] New Patient [542] - Heart Valve Clinic Normal [facility] Progress Noteon 12-15-2024 Progress Note [facility]: Cardiothoracic Surgery Multidisciplinary Heart Valve Clinic Date: 12/14/24 Patient:Denia Gonzalez 1955 69 y.o. female [id number] Subjective: HPI: Denia Gonzalez 69 y.o. referred [...] a past medical history of A-fib (CMS/HCC) ([facility]), Anxiety, Aortic stenosis, Asthma, Chronic respiratory failure ([facility]), COPD (chronic obstructive pulmonary disease) ([facility]), Depressed, History of ETOH abuse, HTN (hypertension), [...] Historical Provider, cholecalciferol (Vitamin D-3) 50 MCG (1999 UT) capsule Take by mouth daily. 09/22/24 Historical Provider, cyclobenzaprine (Flexeril) 10 MG tablet Take 1 tablet by mouth two times a day as needed for mu (more content not included)... Normal [facility] Progress Note [facility] - [address] [address] Dept: [phone] Dept Visit type: New : 1955 Reason for Visit: New patient, Heart Valve Clinic Assessment and Plan 1. Preop cardiovascular exam - CBC auto differential - Comprehensive metabolic panel - Case Request Continuity Reader: Left and right heart cath / coronary [...] Weight: 155 lb (70.3 kg) Height: 5' 4" (1.626 m) Physical Exam Constitutional: General: She [...] Reviewed and Summarized No results found for: "EFBP", "PLVEF", "LVEFPHYS", "LVEF2D", EF Review of tests/labs done/ordered within my [...] (degenerative, rheumatic, (more content not included)... Normal [facility] Progress Noteon 12-14-2024 Progress Note Denia [...] (hypertension) Migraines RLS (restless legs syndrome) Normal [facility] 12-08-2024 CNPN Telephone (INTMWS) DENIA GONZALEZ ([id number]) 1955 F Date Time Provider Department 12/08/24 YOSEPH FALL INTWS During your visit today, we recorded the following information about you: Ban Villafana LPN 12/08/2024 10:31 AM Signed Electronic PA rec'd and completed for cyclobenzaprine (FLEXERIL) 10 mg tablet Ban Villafana LPN 12/08/2024 10:43 AM Signed prior authorization approved Payer: [email or web address] [phone] Note from payer: CaseId:[id number];Stat us:Approved;Review Type:Prior Auth;Coverage Start Date:11/08/2024;Cover age End [...] to its destination. To be filled at: [facility] [address] [place] [address] - [address] - [phone] Pharmacy notified. Allergies As of Date: 12/08/2024 (No Known Allergies) Date Reviewed: 11/22/2024 Reviewed by: Gregor Fernandez APRN.TOE LINING CLOSER - Fully Assessed Reason for Visit: Insurance Authorization [[id number]] Prescriptions as of 12/08/2024 - cyclobenzaprine (FLEXERIL) [...] directed. Dx: COPD J44.9 - Nebulizer Accessories [facility] Mask and supplies as needed - PULSE OXIMETER [facility] Use as directed to check oxygen saturation level - ammonium lactate (AMLACTIN) 12 % lotion Apply 1 application to affected area as needed for Dry Skin. - losartan (COZAAR) 50 mg tablet Take 0.5 tablets by mouth once daily. - OXYGEN, HOME THERAPY, 2.5 L/min by Nasal Cannula route continuous. Use as directred - Disposable Gloves (DISPOSABLE LATEX-FREE GLOVES) [facility] 1 Box once every month. ICD 10: [...] Resolved Other (more content not included)... Normal [facility] 36on 11-28-2024 36 Chart made and SOUND EFFECTS TECHNICIAN packet mailed Normal [facility] CNPNon 11-27-2024 CNPN Telephone (FAMPWS) DENIA GONZALEZ ([id number]) 1955 F Date Time Provider Department 11/27[facility] During your visit today, we recorded the following information about you: Padmini Abbott RN 11/27/2024 2:16 PM Signed Rafa with [facility] Nursing calling and states he plans to add 1 more visit to pt's plan of care, to discharge patient. No call back needed if provider agreeable with this. KAREN Robledo Mark D, MD 11/27/2024 3:12 PM Signed Noted and agree Yoseph Fall MD Allergies As of Date: 11/27/2024 (No Known Allergies) Date Reviewed: 11/22/2024 Reviewed by: Gregor Fernandez APRN.TOE LINING CLOSER - Fully Assessed Reason for Visit: [facility] Nursing Call [Other] Prescriptions as of [...] directed. Dx: COPD J44.9 - Nebulizer Accessories [facility] Mask and supplies as needed - PULSE OXIMETER [facility] Use as directed to check oxygen saturation level - ammonium lactate (AMLACTIN) 12 % lotion Apply 1 application to affected area as needed for Dry Skin. - losartan (COZAAR) 50 mg tablet Take 0.5 tablets by mouth once daily. - OXYGEN, HOME THERAPY, 2.5 L/min by Nasal Cannula route continuous. Use as directred - Disposable Gloves (DISPOSABLE LATEX-FREE GLOVES) [facility] 1 Box once every month. ICD 10: [...] 06/27/2016 Constipatio (more content not included)... [facility] ([facility]) DENIA GONZALEZ ([id number]) 1955 F Date Time Provider Department 11/24/24 MIKAYLA BROUSSARD [facility] During your visit today, we recorded the following information about you: Mikayla Broussard RN 11/24/2024 3:36 PM Signed Palliative Medicine at Home Care Coordination New Patient Note My chart note sent. Nurse introduced self and role of Coding Auditor in Palliative Medicine. Reviewed contact sheet information and on-call process. Nurse educated patient on medication refill process. Nurse encouraged patient to call with any questions/concerns/sy mptom related issues. Mikayla Broussard RNCC Motor Vehicle License Clerk Allergies As of Date: 11/24/2024 (No Known Allergies) Date Reviewed: 11/22/2024 Reviewed by: Gregor Fernandez APRN.[facility] - Fully Assessed Reason for Visit: Care Coordination [0851] Prescriptions as of 11/24/2024 - doxycycline (VIBRA-TABS) [...] and supplies as needed - PULSE OXIMETER [facility] Use as directed to check oxygen saturation level - ammonium lactate (AMLACTIN) 12 % lotion Apply 1 application to affected area as needed for Dry Skin. - losartan (COZAAR) 50 mg tablet Take 0.5 tablets by mouth once daily. - OXYGEN, HOME THERAPY, 2.5 L/min by Nasal Cannula route continuous. Use as directred - Disposable Gloves (DISPOSABLE LATEX-FREE GLOVES) [facility] 1 Box once every month. ICD 10: [...] 03/22/2007 B (more content not included)... [facility] DENIA GONZALEZ ([id number]) 1955 F Date Time Provider Department 11/24/24 [facility] During your visit today, we recorded the following information about you: Shira Shaw LISW 11/24/2024 11:11 AM Signed November 24, 2024 Opened by mistake, please disregard. [facility] Work [phone] Allergies As of Date: 11/24/2024 (No Known Allergies) Date Reviewed: 11/22/2024 Reviewed by: Gregor Fernandez APRN.TOE LINING CLOSER - Fully Assessed Prescriptions as of 11/24/2024 [...] directed. Dx: COPD J44.9 - Nebulizer Accessories [facility] Mask and supplies as needed - PULSE OXIMETER [facility] Use as directed to check oxygen saturation level - ammonium lactate (AMLACTIN) 12 % lotion Apply 1 application to affected area as needed for Dry Skin. - losartan (COZAAR) 50 mg tablet Take 0.5 tablets by mouth once daily. - OXYGEN, HOME THERAPY, 2.5 L/min by Nasal Cannula route continuous. Use as directred - Disposable Gloves (DISPOSABLE LATEX-FREE GLOVES) [facility] 1 Box once every month. ICD 10: [...] MRSA bacteremia (more content not included)... Normal [facility] DENIA GONZALEZ ([id number]) 1955 F Date Time Provider Department 11/23/24 MIKAYLA BROUSSARD [facility] During your visit today, we recorded the following information about you: Mikayla Broussard, KAREN 11/23/2024 1:09 PM Signed Patient [...] request for portable Oxygen machine/device. Thank you, Mikayla Broussard, RNCC, PN Motor Vehicle License Clerk Allergies As of Date: 11/23/2024 (No Known [...] directed. Dx: COPD J44.9 - Nebulizer Accessories [facility] Mask and supplies as needed - PULSE OXIMETER [facility] Use as directed to check oxygen saturation level - ammonium lactate (AMLACTIN) 12 % lotion Apply 1 application to affected area as needed for Dry Skin. - losartan (COZAAR) 50 mg tablet Take 0.5 tablets by mouth once daily. - OXYGEN, HOME THERAPY, 2.5 L/min by Nasal Cannula route continuous. Use as directred - Disposable Gloves (DISPOSABLE LATEX-FREE GLOVES) [facility] 1 Box once every month. ICD 10: [...] CANCER [C34.10] 04/13/2005 (more content not included)... Normal [facility] 36on 11-22-2024 36 VC appt made I need to make chart and mail SOUND EFFECTS TECHNICIAN packet. Working on getting records scanned in. [facility] DENIA GONZALEZ ([id number]) 1955 F Date Time Provider Department 11/20/24 YOSEPH FALL [facility] During your visit today, we recorded the following information about you: Sukhi Marrero, KAREN 11/20/2024 3:19 PM Signed Rafa RN with [facility] calls to let provider know that [...] Dr. Fall for when returns or if SOUND EFFECTS TECHNICIAN would review. KAREN Barney Mark D, MD 11/23/2024 2:33 PM Signed Does she feel that she still needs an antibiotic? MD Zaki Chopra Kathryn, MA 11/23/2024 2:51 PM Signed Pt states she still feels like she needs an antibiotic, unable to take Levaquin due to medication interaction. Drug Kelley Shelton. JOS Sandy Mark D, MD 11/24/2024 10:30 AM Signed OK for doxycycline as ordered Yoseph Fall MD Allergies As of Date: 11/20/2024 (No Known Allergies) Date Reviewed: 11/20/2024 Reviewed by: Gregor Fernandez APRN.TOE LINING CLOSER - Fully Assessed Reason for Visit: Patient Update [1234] Visit Diagnosis:Stage 3 severe COPD by GOLD classification ([facility]) [J44.9] Order(s):doxycycline (VIBRA-TABS) 100 mg tabletTake 1 [...] and supplies as needed - PULSE OXIMETER [facility] Use as directed to check oxygen saturation level - ammonium lactate (AMLACTIN) 12 % lotion Apply 1 application to affected area as needed for Dry Skin. - losartan (COZAAR) 50 mg tablet Take 0.5 tablets by mouth once daily. - OXYGEN, HOME THERAPY, 2.5 L/min by Nasal Cannula route c (more content not included)... Normal [facility]10-[facility] DENIA GONZALEZ ([id number]) 1955 F Date Time Provider Department 11/10/24 [facility] During your visit today, [...] Fully Assessed Reason for Visit: Patient Request [9702] Patient Update [3084] Visit Diagnosis:Stage 3 severe COPD by GOLD classification ([facility]) [J44.9] Order(s):predniSONE (DELTASONE) 10 mg tabletTake 1.5 [...] directed. Dx: COPD J44.9 - Nebulizer Accessories [facility] Mask and supplies as needed - [facility] Use as directed to check oxygen saturation level - ammonium lactate (AMLACTIN) 12 % lotion Apply 1 application to affected area as needed for Dry Skin. - losartan (COZAAR) 50 mg tablet Take 0.5 tablets by mouth once daily. - OXYGEN, HOME THERAPY, 2.5 L/min by Nasal Cannula route continuo (more content not included)... Normal [facility] Cardiology Visit Reporton 07 -11-2025 Cardiology Visit Report Normal [facility] CNPNon 10-24-2024 CNPN Telephone (FAMPWS) DENIA GONZALEZ ([id number]) 1955 F Date Time Provider Department 10/24/24 YOSEPH FALL [facility] During your visit today, we recorded the following information about you: Padmini Abbott RN 10/24/2024 3:59 PM Signed Patient's significant other, Mike Marysol calling in with pt speaking in the background. Mike states patient "wants to be back on the antibiotic that she was on when she got out of the hospital". She is coughing up yellow/brown sputum. Pt denies fever, shortness of breath at rest, chest pain, wheezing or other sx's. SpO2 96% on 3 LPM. Reports lasix pills that PCP ordered for her are helping her leg swelling. Please call patient back with reply. [phone] KAREN Robledo Mark D, MD 10/24/2024 4:55 PM Signed OK for another 7 days of Levaquin MD Annmarie Chopra Amanda, RN 10/24/2024 5:00 PM Signed Pt called and is notified of providers message and instructions. Pt voices understanding. KAREN Merlos Michelle, RN 10/24/2024 5:30 PM Signed Rafa with [facility] is calling due to pharmacy unable [...] further evaluation today. My team has openings. Magalie Anguiano RN 10/25/2024 11:44 AM Signed Pt [...] call ride and will call back in. Magalie Anguiano RN Allergies As of Date: 10/24/2024 (No Known Allergies) Date Reviewed: 10/17/2024 Reviewed by: Naima Haines MA - Fully Assessed Reason for Visit: Patient Request [3301] Order(s):levoFLOXacin (LEVAQUIN) 500 mg tabletTake 1 tablet [...] as needed. - Nebulizer and Compressor For [facility] Use as directed. Dx: COPD J44.9 - Nebulizer Accessories [facility] Mask and supplies as needed - [facility] Use as directed to check oxygen saturation level - ammonium lactate (AMLACTI (more content not included)... Normal [facility] Telephone ([facility]AMPWS) DENIA GONZALEZ ([id number]) 1955 F Date Time Provider Department 10/24/24 YOSEPH FALL During your visit today, we recorded the following information about you: Jennifer Hennessy LPN 10/24/2024 4:29 PM Signed Ubaldo with [facility] calls in regard [...] Robin, RN 10/25/2024 1:21 PM Signed Rafa [facility] reports patient asked him to call [...] directed. Dx: COPD J44.9 - Nebulizer Accessories [facility] Mask and supplies as needed - [facility] Use as directed to check oxygen saturation level - ammonium lactate (AMLACTIN) 12 % lotion Apply 1 application to affected area as needed for Dry Skin. - losartan (COZAAR) 50 mg tablet Take 0.5 tablets by mouth once daily. - OXYGEN, HOME THERAPY, 2.5 L/min by Nasal Cannula route continuous. Use as directred - Disposable Gloves (DISPOSABLE LATEX-FREE GLOVES) [facility] 1 Box once every month. ICD 10: [...] 10/24/2024 Noted (more content not included)... [facility] DENIA GONZALEZ ([id number]) 1955 F Date Time Provider Department 10/24/24 YOSEPH FALL [facility] During your visit today, we recorded the following information about you: Mikayla Broussard, RN 10/24/2024 2:53 PM Signed Palliative [...] and chronic pain Virtual Visit Clinic location: [facility]- no safety concerns identified by nurse. Mikayla Broussard RN October 24, 2024 Kajal Reyes [...] Fully Assessed Reason for Visit: pall med- [id number] [Other] Initial Consult [665] Prescriptions as of [...] directed. Dx: COPD J44.9 - Nebulizer Accessories [facility] Mask and supplies as needed - [facility] Use as directed to check oxygen saturation level - ammonium lactate (AMLACTIN) 12 % lotion Apply 1 application to affected area as needed for Dry Skin. - losartan (COZAAR) 50 mg tablet Take 0.5 tablets by mouth once daily. - OXYGEN, HOME THERAPY, 2.5 L/min by Nasal Cannula route continuous. Use as directred - Disposable Gloves (DISPOSABLE LATEX-FREE GLOVES) [facility] 1 Box once every month. ICD 10: [...] as of (more content not included)... Normal [facility] CNPNon 10-23-2024 CNPN Telephone (FAMPWS) DENIA GONZALEZ ([id number]) 1955 F Date Time Provider Department 10/23/24 YOSEPH FALL [facility] During your visit today, we recorded the following information about you: Magalie Anguiano RN 10/23/2024 1:49 PM Signed Rafa JONES [facility] called in about Pt and states je [...] chronic generalized pain and is on the [place] for it. He states the Pt would like a Palliative care referral for pain and breathing. I told him I don't think they do Palliative care for pain, but for breathing they do. Magalie Anguiano, Yoseph Huerta MD 10/23/2024 2:46 PM Signed OK for Palliative Care consult as requested MD Zaki Chopra Kathryn, MA 10/23/2024 3:47 PM Signed Rafa notified. Referral faxed, demo, insurance card, OV note, med list faxed to [facility] at [phone] with Palliative Care specified on fax. Naima [...] laterality [M54.40, G89.29] Order(s):CONSULT TO PALLIATIVE CARE [[id number]] Order #: [id number]: 1 FUTURE Prescriptions as of 10/23/2024 - [...] directed. Dx: COPD J44.9 - Nebulizer Accessories [facility] Mask and supplies as needed - [facility] Use as directed to check oxygen saturation level - ammonium lactate (AMLACTIN) 12 % lotion Apply 1 application to affected area as needed for Dry Skin. - losartan (COZAAR) 50 mg tablet Take 0.5 tablets by mouth once daily. - OXYGEN, HOME THERAPY, 2.5 L/min (more content not included)... [facility] Telephone ([facility]) DENIA GONZALEZ ([id number]) 1955 F Date Time Provider [facility] During your visit today, we recorded the following information about you: Padmini Abbott RN 10/20/2024 3:50 PM Signed Patient's daughter Sinan Gonzalez calling in, with patient speaking in the background. Reports both of patient's feet have been "very" swollen for about 3 days now and asking if Dr. Fall will order pt a water pill. Swelling goes up into each ankle area. She has tried contacting [facility] over the past couple of [...] 10/20/2024 4:28 PM Signed Message left for Symontpaulette to call back. JOS Sandy Sherrie, RN [...] directed. Dx: COPD J44.9 - Nebulizer Accessories [facility] Mask and supplies as needed - [facility] Use as directed to check oxygen saturation level - ammonium lactate (AMLACTIN) 12 % lotion Apply 1 application to affected area as needed for Dry Skin. - losartan (COZAAR) 50 mg tablet Take 0.5 tablets by mouth once daily. - OXYGEN, HOME THERAPY, 2.5 L/min by Nasal Cannula route continuous. Use as directred - Disposable Gloves (DISPOSABLE LATEX-FREE GLOVES) [facility] 1 Box once every month. ICD 10: M15.9, J44.9, M54.40 - Incontinence Pad, Liner, Disp (POISE PADS) pads Use pads as directed. Dx: N39.46 - COMPOUNDED PRESCRIPTION BLOOD PRESSURE CUFF FOR HOME USE. DX: HYPERTENSION I10. AUTOMATIC CUFF. - (more content not included)... Normal [facility] [place] 10-19-2024 [facility] Telephone (FAMPWS) DENIA GONZALEZ ([id number]) 1955 F Date Time Provider Department 10/19/24 YOSEPH FALL During your visit today, we recorded the following information about you: Martínez Louie, RN 10/19/2024 1:07 PM Signed Monae- nurse- [facility]- reports she saw patient today. Noted [...] laterality [M54.40, G89.29] Order(s):CONSULT TO PALLIATIVE CARE [[id number]] Order #: [id number]: 1 FUTURE Prescriptions as of 10/20/2024 - [...] directed. Dx: COPD J44.9 - Nebulizer Accessories [facility] Mask and supplies as needed - [facility] Use as directed to check oxygen saturation level - ammonium lactate (AMLACTIN) 12 % lotion Apply 1 application to affected area as needed for Dry Skin. - losartan (COZAAR) 50 mg tablet Take 0.5 tablets by mouth once daily. - OXYGEN, HOME THERAPY, 2.5 L/min by Nasal Cannula route continuous. Use as directred - Disposable Gloves (DISPOSABLE LATEX-FREE GLOVES) [facility] 1 Box once every month. ICD 10: [...] CANCER [C34.1 (more content not included)... Normal [facility] [place] [facility] DNEIA [facility]ON[facility]ALE[facility] ([id number]) 1955 F Date Time Provider Department 10/18/24 [facility] FALL [facility] During your visit today, we recorded the following information about you: Judy Bliss, RN 10/18/2024 10:51 AM Signed Vilma NICHOLSON calling from [facility] to report plan of care for [...] directed. Dx: COPD J44.9 - Nebulizer Accessories [facility] Mask and supplies as needed - [facility] Use as directed to check oxygen saturation level - ammonium lactate (AMLACTIN) 12 % lotion Apply 1 application to affected area as needed for Dry Skin. - losartan (COZAAR) 50 mg tablet Take 0.5 tablets by mouth once daily. - OXYGEN, HOME THERAPY, 2.5 L/min by Nasal Cannula route continuous. Use as directred - Disposable Gloves (DISPOSABLE LATEX-FREE GLOVES) [facility] 1 Box once every month. ICD 10: [...] Date 10/18/2024 (more content not included)... Normal [facility]Non 10-[facility] DEN[facility] GON[facility]ALEZ ([id number]) 1955 F Date Time Provider Department 10/13/24 Y[facility]PH FALL [facility] During your visit today, we recorded the [...] Known Allergies) Date Reviewed: 07/06/2024 Reviewed by: Martha Baca MA - Fully Assessed Reason for [...] directed. Dx: COPD J44.9 - Nebulizer Accessories [facility] Mask and supplies as needed - [facility] Use as directed to check oxygen saturation level - ammonium lactate (AMLACTIN) 12 % lotion Apply 1 application to affected area as needed for Dry Skin. - losartan (COZAAR) 50 mg tablet Take 0.5 tablets by mouth once daily. - OXYGEN, HOME THERAPY, 2.5 L/min by Nasal Cannula route continuous. Use as directred - Disposable Gloves (DISPOSABLE LATEX-FREE GLOVES) [facility] 1 Box once every month. ICD 10: [...] with acute (more content not included)... Normal [facility] Basic Metabolic Profile (BMP )on 10-11-2024 BUN Normal 4-19 [facility] Comment on above: Result Comment: Canc elled via OM: Order cancelled - Patient discharged Performed By: #### L 100.0100, L500.2500 ####[facility] [address] [place], [address] BUN/CRE Normal 10-20 [facility] Comment on above: Result Comment: Canc elled via OM: Order cancelled - Patient discharged Performed By: #### L 100.0100, L500.2500 ####[facility] [address] [place], [address] Calcium Normal 7.6-11.0 [facility] Comment on above: Result Comment: Canc elled via OM: Order cancelled - Patient discharged Performed By: #### L 100.0100, L500.2500 ####[facility] [address] [place], [address] CL Normal 98-108 [facility] Comment on above: Result Comment: Canc elled via OM: Order cancelled - Patient discharged Performed By: #### L 100.0100, L500.2500 ####[facility] [address] [place], [address] CO2 Normal 21.0-32.0 [facility] Comment on above: Result Comment: Canc elled via OM: Order cancelled - Patient discharged Performed By: #### L 100.0100, L500.2500 ####[facility] [address] [place], [address] CREAT,SERUM Normal 0.70-1.20 [facility] Comment on above: Result Comment: Canc elled via OM: Order cancelled - Patient discharged Performed By: #### L 100.0100, L500.2500 ####[facility] [address] [place], [address] eGFR Normal >60 [facility] Comment on above: Result Comment: Canc elled via OM: Order cancelled - Patient discharged Performed By: #### L 100.0100, L500.2500 ####[facility] [address] [place], [address] GAP Normal 5-15 [facility] Comment on above: Result Comment: Canc elled via OM: Order cancelled - Patient discharged Performed By: #### L 100.0100, L500.2500 ####[facility] [address] [place], [address] GLU Normal 70-99 [facility] Comment on above: Result Comment: Canc elled via OM: Order cancelled - Patient discharged Performed By: #### L 100.0100, L500.2500 ####[facility] [address] [place], [address] Potassium Normal 3.3-5.1 [facility] Comment on above: Result Comment: Canc elled via OM: Order cancelled - Patient discharged Performed By: #### L 100.0100, L500.2500 ####[facility] [address] [place], [address] Basic Metabolic Profile (BMP) Normal 133-145 [facility] Comment on above: Result Comment: Canc elled via OM: Order cancelled - Patient discharged Performed By: #### L 100.0100, L500.2500 ####[facility] [address] [place], [address] CBC W/Diff, Automatedon 09-24 Absolute Neut Normal 2.0-7.7 [facility] Comment on above: Result Comment: Canc elled via OM: Order cancelled - Patient discharged Performed By: #### L 100.0100, L500.2500 ####[facility] [address] [place], [address] HCT Normal 37-47 [facility] Comment on above: Result Comment: Canc elled via OM: Order cancelled - Patient discharged Performed By: #### L 100.0100, L500.2500 ####[facility] [address] [place], [address] HGB Normal 12.0-15.0 [facility] Comment on above: Result Comment: Canc elled via OM: Order cancelled - Patient discharged Performed By: #### L 100.0100, L500.2500 ####[facility] [address] [place], [address] MCH Normal 27.0-32.0 [facility] Comment on above: Result Comment: Canc elled via OM: Order cancelled - Patient discharged Performed By: #### L 100.0100, L500.2500 ####[facility] [address] [place], [address] MCHC Normal 32-36 [facility] Comment on above: Result Comment: Canc elled via OM: Order cancelled - Patient discharged Performed By: #### L 100.0100, L500.2500 ####[facility] [address] [place], [address] MCV Normal 81-99 [facility] Comment on above: Result Comment: Canc elled via OM: Order cancelled - Patient discharged Performed By: #### L 100.0100, L500.2500 ####[facility] [address] [place], [address] NEUT% Normal 47-70 [facility] Comment on above: Result Comment: Canc elled via OM: Order cancelled - Patient discharged Performed By: #### L 100.0100, L500.2500 ####[facility] [address] [place], [address] PLT Normal 150-450 [facility] Comment on above: Result Comment: Canc elled via OM: Order cancelled - Patient discharged Performed By: #### L 100.0100, L500.2500 ####[facility] [address] [place], [address] RBC Normal 4.2-5.4 [facility] Comment on above: Result Comment: Canc elled via OM: Order cancelled - Patient discharged Performed By: #### L 100.0100, L500.2500 ####[facility] [address] [place], [address] RDW CV Normal 11.6-14.6 [facility] Comment on above: Result Comment: Canc elled via OM: Order cancelled - Patient discharged Performed By: #### L 100.0100, L500.2500 ####[facility] [address] [place], [address] RDW SD Normal 35.1-43.9 [facility] Comment on above: Result Comment: Canc elled via OM: Order cancelled - Patient discharged Performed By: #### L 100.0100, L500.2500 ####[facility] [address] [place], [address] WBC Normal 4.4-11.0 [facility] Comment on above: Result Comment: Canc elled via OM: Order cancelled - Patient discharged Performed By: #### L 100.0100, L500.2500 ####[facility] [address] [place], [address] Basic Metabolic Profile (BMP )on 10-10-2024 BUN Normal 4-19 [facility] Comment on above: Result Comment: Canc elled via OM: Order cancelled - Patient discharged Performed By: #### L 100.0100, L500.2500 ####[facility] [address] [place], [address] BUN/CRE Normal 10-20 [facility] Comment on above: Result Comment: Canc elled via OM: Order cancelled - Patient discharged Performed By: #### L 100.0100, L500.2500 ####[facility] [address] [place], [address] Calcium Normal 7.6-11.0 [facility] Comment on above: Result Comment: Canc elled via OM: Order cancelled - Patient discharged Performed By: #### L 100.0100, L500.2500 ####[facility] [address] [place], [address] CL Normal 98-108 [facility] Comment on above: Result Comment: Canc elled via OM: Order cancelled - Patient discharged Performed By: #### L 100.0100, L500.2500 ####[facility] [address] [place], [address] CO2 Normal 21.0-32.0 [facility] Comment on above: Result Comment: Canc elled via OM: Order cancelled - Patient discharged Performed By: #### L 100.0100, L500.2500 ####[facility] [address] [place], [address] CREAT,SERUM Normal 0.70-1.20 [facility] Comment on above: Result Comment: Canc elled via OM: Order cancelled - Patient discharged Performed By: #### L 100.0100, L500.2500 ####[facility] [address] [place], [address] eGFR Normal >60 [facility] Comment on above: Result Comment: Canc elled via OM: Order cancelled - Patient discharged Performed By: #### L 100.0100, L500.2500 ####[facility] [address] [place], [address] GAP Normal 5-15 [facility] Comment on above: Result Comment: Canc elled via OM: Order cancelled - Patient discharged Performed By: #### L 100.0100, L500.2500 ####[facility] [address] [place], [address] GLU Normal 70-99 [facility] Comment on above: Result Comment: Canc elled via OM: Order cancelled - Patient discharged Performed By: #### L 100.0100, L500.2500 ####[facility] [address] [place], [address] Potassium Normal 3.3-5.1 [facility] Comment on above: Result Comment: Canc elled via OM: Order cancelled - Patient discharged Performed By: #### L 100.0100, L500.2500 ####[facility] [address] [place], [address] Basic Metabolic Profile (BMP) Normal 133-145 [facility] Comment on above: Result Comment: Canc elled via OM: Order cancelled - Patient discharged Performed By: #### L 100.0100, L500.2500 ####[facility] [address] [place], [address] CBC W/Diff, Automatedon - Absolute Neut Normal 2.0-7.7 [facility] Comment on above: Result Comment: Canc elled via OM: Order cancelled - Patient discharged Performed By: #### L 100.0100, L500.2500 ####[facility] [address] [place], [address] HCT Normal 37-47 [facility] Comment on above: Result Comment: Canc elled via OM: Order cancelled - Patient discharged Performed By: #### L 100.0100, L500.2500 ####[facility] [address] [place], [address] HGB Normal 12.0-15.0 [facility] Comment on above: Result Comment: Canc elled via OM: Order cancelled - Patient discharged Performed By: #### L 100.0100, L500.2500 ####[facility] [address] [place], [address] MCH Normal 27.0-32.0 [facility] Comment on above: Result Comment: Canc elled via OM: Order cancelled - Patient discharged Performed By: #### L 100.0100, L500.2500 ####[facility] [address] [place], [address] MCHC Normal 32-36 [facility] Comment on above: Result Comment: Canc elled via OM: Order cancelled - Patient discharged Performed By: #### L 100.0100, L500.2500 ####[facility] [address] [place], [address] MCV Normal 81-99 [facility] Comment on above: Result Comment: Canc elled via OM: Order cancelled - Patient discharged Performed By: #### L 100.0100, L500.2500 ####[facility] [address] [place], [address] NEUT% Normal 47-70 [facility] Comment on above: Result Comment: Canc elled via OM: Order cancelled - Patient discharged Performed By: #### L 100.0100, L500.2500 ####[facility] [address] [place], [address] PLT Normal 150-450 [facility] Comment on above: Result Comment: Canc elled via OM: Order cancelled - Patient discharged Performed By: #### L 100.0100, L500.2500 ####[facility] [address] [place], [address] RBC Normal 4.2-5.4 [facility] Comment on above: Result Comment: Canc elled via OM: Order cancelled - Patient discharged Performed By: #### L 100.0100, L500.2500 ####[facility] [address] [place], [address] RDW CV Normal 11.6-14.6 [facility] Comment on above: Result Comment: Canc elled via OM: Order cancelled - Patient discharged Performed By: #### L 100.0100, L500.2500 ####[facility] [address] [place], [address] RDW SD Normal 35.1-43.9 [facility] Comment on above: Result Comment: Canc elled via OM: Order cancelled - Patient discharged Performed By: #### L 100.0100, L500.2500 ####[facility] [address] [place], [address] WBC Normal 4.4-11.0 [facility] Comment on above: Result Comment: Canc elled via OM: Order cancelled - Patient discharged Performed By: #### L 100.0100, L500.2500 ####[facility] [address] [place], [address] C[facility]Non 10-10-[facility] DENIA GONZALEZ ([id number]) 1955 F Date Time Provider Department 10/10/24 YOSEPH FALL [facility] During your visit today, we recorded the following information about you: Martínez Louie, RN 10/10/2024 4:34 PM Signed [facility]- reports he did start of care [...] Known Allergies) Date Reviewed: 07/06/2024 Reviewed by: Martha Baca MA - Fully Assessed Reason for Visit: [facility] patient update [Other] Prescriptions as of [...] directed. Dx: COPD J44.9 - Nebulizer Accessories [facility] Mask and supplies as needed - PULSE OX[facility]ETER [facility] Use as directed to check oxygen saturation level - ammonium lactate (AMLACTIN) 12 % lotion Apply 1 application to affected area as needed for Dry Skin. - losartan (COZAAR) 50 mg tablet Take 0.5 tablets by mouth once daily. - OXYGEN, HOME THERAPY, 2.5 L/min by Nasal Cannula route continuous. Use as directred - Disposable Gloves (DISPOSABLE LATEX-FREE GLOVES) [facility] 1 Box once every month. ICD 10: [...] HPV [ (more content not included)... Normal [facility] Absolute lymphocyte countOrd ered By: Lynne Schafer on 10-09-2024 Lymphocytes Auto (Unsp spec) [#/Vol] 0.67 10*3/uL Low 0.83-4.51 [facility] Absolute neutrophil countOrd ered By: Lynne Schafer on 10-09-2024 Neutrophils (Bld) [#/Vol] 8.4 10*3/uL High 2.0-7.7 [facility] Anion gap in Serum or Plasma Ordered By: Lynne Schafer on 10-09-2024 Anion gap [Moles/Vol] 5 mmol/L 5-15 [facility] Automated lymphocyte count a s percentage of total leukocytesOrdered By: Lynne Schafer on 10-09-2024 Lymphocytes/100 WBC Auto (Unsp spec) 6.9 % Low 19-41 [facility] BUN/creatinine ratioOrdered By: Lynne Schafer on 10-09-2024 Urea nitrogen/Creatinine [Mass ratio] 38.0 mg/mg High 10-20 [facility] Basic Metabolic Profile (BMP )on 10-09-2024 BUN/CRE 38.0 RATIO High 10- [facility] Comment on above: Performed By: #### L 100.0100, L500.2500 ####[facility] [address] [place], [address] Calcium [Mass/Vol] 8.4 mg/dL Normal 7.6-11.0 [facility] Comment on above: Performed By: #### L 100.0100, L500.2500 ####[facility] [address] [place], [address] Chloride [Moles/Vol] 93 mmol/L Low 98-108 [facility] Comment on above: Performed By: #### L 100.0100, L500.2500 ####[facility] [address] [place], [address] CO2 [Moles/Vol] 40.4 mmol/L High 21.0-32.0 [facility] Comment on above: Performed By: #### L 100.0100, L500.2500 ####[facility] [address] [place], [address] Creatinine [Mass/Vol] 0.44 mg/dL Low 0.70-1.20 [facility] Comment on above: Performed By: #### L 100.0100, L500.2500 ####[facility] [address] [place], [address] ECRCL 63.35 ml/min Normal 50-250 [facility] Comment on above: Performed By: #### L 100.0100, L500.2500 ####[facility] [address] [place], [address] GAP 5 Normal 5-15 [facility] Comment on above: Performed By: #### L 100.0100, L500.2500 ####[facility] [address] [place], [address] GFR/1.73 sq M.predicted among non-blacks MDRD (S/P/Bld) [Vol rate/Area] 105 mL/min/{1.73_m2} Normal >60 [facility] Comment on above: Result Comment: mL/m in/1.73m2 CKD-EPI Creatinine Equation (2020) Performed By: #### L 100.0100, L500.2500 ####[facility] [address] [place], [address] Glucose [Mass/Vol] 113 mg/dL High 70-99 [facility] Comment on above: Performed By: #### L 100.0100, L500.2500 ####[facility] [address] [place], [address] Potassium [Moles/Vol] 4.9 mmol/L Normal 3.3-5.1 [facility] Comment on above: Result Comment: Hemo lysis present, Results??could be affected.?? Performed By: #### L 100.0100, L500.2500 ####[facility] [address] [place], [address] Sodium [Moles/Vol] 139 mmol/L Normal 133-145 [facility] Comment on above: Performed By: #### L 100.0100, L500.2500 ####[facility] [address] [place], [address] Urea nitrogen [Mass/Vol] 17 mg/dL Normal 4-19 [facility] Comment on above: Performed By: #### L 100.0100, L500.2500 ####[facility] [address] [place], [address] Basophil percentageOrdered B y: Lynne Schafer on 10-09-2024 Basophils/100 WBC (Bld) 0.1 % 0-1 [facility] CBC W/Diff, Automatedon 09-24 Absolute Lymph 0.67 X10 3/uL Low 0.83-4.51 [facility] Comment on above: Performed By: #### L 100.0100, L500.2500 ####[facility] [address] [place], [address] Absolute Neut 8.4 X10 3/uL High 2.0-7.7 [facility] Comment on above: Performed By: #### L 100.0100, L500.2500 ####[facility] [address] [place], [address] Basophils/100 WBC (Bld) 0.1 % Normal 0-1 [facility] Comment on above: Performed By: #### L 100.0100, L500.2500 ####[facility] [address] [place], [address] Eosinophils/100 WBC (Bld) 0.0 % Normal 0-5 [facility] Comment on above: Performed By: #### L 100.0100, L500.2500 ####[facility] [address], [address] Erythrocyte distribution width (RBC) [Ratio] 13.1 % Normal 11.6-14.6 [facility] Comment on above: Performed By: #### L 100.0100, L500.2500 ####[facility] [address] [place], [address] Hematocrit (Bld) [Volume fraction] 41.6 % Normal 37-47 [facility] Comment on above: Performed By: #### L 100.0100, L500.2500 ####[facility] [address] [place], [address] Hemoglobin (Bld) [Mass/Vol] 13.5 g/dL Normal 12.0-15.0 [facility] Comment on above: Performed By: #### L 100.0100, L500.2500 ####[facility] [address] [place], [address] IG% 0.800 Normal 0.0-0.9 [facility] Comment on above: Result Comment: IG% - Immature Granulocytes (promyelocytes, myelocytes andmetamyelocytes) > 1% indicates that a LEFT SHIFT is Present. Performed By: #### L 100.0100, L500.2500 ####[facility] [address] [place], [address] Lymphocytes/100 WBC (Bld) 6.9 % Low 19-41 [facility] Comment on above: Performed By: #### L 100.0100, L500.2500 ####[facility] [address] [place], [address] MCH (RBC) [Entitic mass] 27.9 pg Normal 27.0-32.0 [facility] Comment on above: Performed By: #### L 100.0100, L500.2500 ####[facility] [address] [place], [address] MCHC (RBC) [Mass/Vol] 32.5 g/dL Normal 32-36 [facility] Comment on above: Performed By: #### L 100.0100, L500.2500 ####[facility] [address] [place], [address] MCV (RBC) [Entitic vol] 86.0 fL Normal 81-99 [facility] Comment on above: Performed By: #### L 100.0100, L500.2500 ####[facility] [address] [place], [address] Monocytes/100 WBC (Bld) 5.3 % Normal 0-10 [facility] Comment on above: Performed By: #### L 100.0100, L500.2500 ####[facility] [address] [place], [address] Neutrophils/100 WBC (Bld) 86.9 % High 47-70 [facility] Comment on above: Performed By: #### L 100.0100, L500.2500 ####[facility] [address] [place], [address] Nucleated RBC (Bld) [#/Vol] 0 10*3/uL Normal 0-5 [facility] Comment on above: Performed By: #### L 100.0100, L500.2500 ####[facility] [address] [place], [address] Platelet mean volume (Bld) [Entitic vol] 10.0 fL Normal 6.2-12.0 [facility] Comment on above: Performed By: #### L 100.0100, L500.2500 ####[facility] [address] [place], [address] Platelets (Bld) [#/Vol] 181 10*3/uL Normal 150-450 [facility] Comment on above: Performed By: #### L 100.0100, L500.2500 ####[facility] [address] [place], [address] RBC (Bld) [#/Vol] 4.84 10*6/uL Normal 4.2-5.4 [facility] Comment on above: Performed By: #### L 100.0100, L500.2500 ####[facility] [address] [place], [address] RDW SD 41.1 fl Normal 35.1-43.9 [facility] Comment on above: Performed By: #### L 100.0100, L500.2500 ####[facility] [address] [place], [address] WBC (Bld) [#/Vol] 9.7 10*3/uL Normal 4.4-11.0 [facility] Comment on above: Performed By: #### L 100.0100, L500.2500 ####[facility] [address] [place], [address] CNPNon 10-09-2024 [facility] Telephone (FAMPWS) DENIA GONZALEZ ([id number]) 1955 F Date Time Provider Department 10/09/24 [facility] During your visit today, we recorded the following information about you: Magalie Anguiano, KAREN 10/09/2024 7:28 PM Signed Pt's significant other Mike called in and reports Pt was in the hospital for 11 days and released about an hour and a half ago. He states [facility] in [place] doesn't have the Multaq in stock, but [...] PM Signed They may wait until [facility] can get the Multaq tomorrow MD Zaki [...] Known Allergies) Date Reviewed: 07/06/2024 Reviewed by: Martha Baca MA - Fully Assessed Reason for [...] as needed. - Nebulizer and Compressor For [facility] Use as directed. Dx: COPD J44.9 - Nebulizer Accessories [facility] Mask and supplies as needed - PULSE OXIMETER [facility] Use as directed to check oxygen saturation level - ammonium lactate (AMLACTIN) 12 % lotion Apply 1 application to affected area as needed for Dry Skin. - losartan (COZAAR) 50 mg tablet Take 0.5 tablets by mouth once daily. - OXYGEN, HOME THERAPY, 2.5 L/min by Nasal Cannula route continuous. Use as directred - Disposable Gloves (DISPOSABLE LATEX-FREE GLOVES) [facility] 1 Box once every month. ICD 10: M15.9, J44.9, M54.40 - Incontinence Pad, Liner, Disp (POISE PADS) pads Use pads as directed. Dx: N39.46 - COMPOUNDED PRESCRIPTION BLOOD PRESSURE CUFF FOR HOME USE. DX: HYPERTENSION I10. AUTOMATIC CU (more content not included)... Normal [facility] Telephone (FAMPWS) DENIA GONZALEZ ([id number]) 1955 F Date Time Provider Department 10/09/24 [...] onset A-fib. Please call Iman back at [phone]. KAREN Barney Mark D, MD 10/09/2024 3:54 PM Signed Yes, I will follow their HH orders for SN, PT, OT MD Zaki Chopra Kathryn, MA 10/09/2024 3:56 PM Signed Detailed message left on below's identified and confidential VM. Naima Haines MA Allergies As of Date: 10/09/2024 (No Known Allergies) Date Reviewed: 07/06/2024 Reviewed by: Martha Baca MA - Fully Assessed Reason for [...] directed. Dx: COPD J44.9 - Nebulizer Accessories [facility] Mask and supplies as needed - PULSE OXIMETER [facility] Use as directed to check oxygen saturation level - ammonium lactate (AMLACTIN) 12 % lotion Apply 1 application to affected area as needed for Dry Skin. - losartan (COZAAR) 50 mg tablet Take 0.5 tablets by mouth once daily. - OXYGEN, HOME THERAPY, 2.5 L/min by Nasal Cannula route continuous. Use as directred - Disposable Gloves (DISPOSABLE LATEX-FREE GLOVES) [facility] 1 Box once every month. ICD 10: [...] *02/20/2022 Ciga (more content not included)... [facility] DEN[facility] GONZALEZ ([id number]) 1955 F Date Time Provider Department 10/09/24 [...] Known Allergies) Date Reviewed: 07/06/2024 Reviewed by: Martha Baca MA - Fully Assessed Reason for [...] directed. Dx: COPD J44.9 - Nebulizer Accessories [facility] Mask and supplies as needed - PULSE OXIMETER [facility] Use as directed to check oxygen saturation level - ammonium lactate (AMLACTIN) 12 % lotion Apply 1 application to affected area as needed for Dry Skin. - losartan (COZAAR) 50 mg tablet Take 0.5 tablets by mouth once daily. - OXYGEN, HOME THERAPY, 2.5 L/min by Nasal Cannula route continuous. Use as directred - Disposable Gloves (DISPOSABLE LATEX-FREE GLOVES) [facility] 1 Box once every month. ICD 10: [...] Status:Closed by YOSEPH FALL on 10/09/24 Normal [facility] Carbon dioxide, total [Moles /volume] in Central venous bloodOrdered By: Lynne Schafer on 10-09-2024 CO2 [Moles/Vol] 40.4 mmol/L High 21.0-32.0 [facility] Chloride assayOrdered By: Na na Gilmar on 10-09-2024 Chloride [Moles/Vol] 93 mmol/L Low 98-108 [facility] Discharge Instructionon 09-24 Discharge Instruction Normal [facility] Eosinophil percentageOrdered By: Lynne Schafer on 10-09-2024 Eosinophils/100 WBC (Bld) 0.0 % 0-5 [facility] Erythrocyte distribution wid th ratioOrdered By: Lynne Schafer on 10-09-2024 Erythrocyte distribution width (RBC) [Ratio] 13.1 % 11.6-14.6 [facility] Erythrocyte distribution wid th standard deviationOrdered By: Lnyne Schafer on 10-09-2024 Erythrocyte distribution width (RBC) [Ratio] 41.1 fl 35.1-43.9 [facility] Glomerular filtration rate ( GFR) estimation/1.73 sq m using serum, plasma, or whole bOrdered By: Lynne Schafer on 10-09-2024 GFR/1.73 sq M.predicted among non-blacks MDRD (S/P/Bld) [Vol rate/Area] 105 mL/min/{1.73_m2} >60 [facility] Comment on above: mL/min/1.73m2 CKD-EP I Creatinine Equation (2020) Hematocrit Auto (Bld) [Volum e fraction]Ordered By: Lynne Schafer on 10-09-2024 Hematocrit (Bld) [Volume fraction] 41.6 % 37-47 [facility] Hemoglobin measurementOrdere d By: Lynne Schafer on 10-09-2024 Hemoglobin (Bld) [Mass/Vol] 13.5 g/dL 12.0-15.0 [facility] Immature granulocytes/100 WB C Auto (Bld)Ordered By: Lynne Schafer 10-09-2024 Immature granulocytes/100 WBC (Bld) 0.800 % 0.0-0.9 [facility] Comment on above: IG% - Immature Granu locytes (promyelocytes, myelocytes and metamyelocytes) > 1% indicates that a LEFT SHIFT is Present. MCV (mean corpuscular volume ) determinationOrdered By: Lynne Schafer on 10-09-2024 MCV (RBC) [Entitic vol] 86.0 fL 81-99 [facility] Mean corpuscular hemoglobin (MCH) determinationOrdered By: Lynne Schafer 10-09-2024 MCH (RBC) [Entitic mass] 27.9 pg 27.0-32.0 [facility] Mean corpuscular hemoglobin concentration (MCHC) determinationOrdered By: Lynne Schafer 10-09-2024 MCHC (RBC) [Mass/Vol] 32.5 g/dL 32-36 [facility] Mean platelet volume determi nationOrdered By: Lynne Schafer 10-09-2024 Platelet mean volume (Bld) [Entitic vol] 10.0 fL 6.2-12.0 [facility] Monocyte percentageOrdered B y: Lynne Schafer on 06-16-2025 Monocytes/100 WBC (Bld) 5.3 % 0-10 [facility] Neutrophil percentageOrdered By: Lynne Schafer on 10-09-2024 Neutrophils/100 WBC (Bld) 86.9 % High 47-70 [facility] Nucleated red blood cell per centageOrdered By: Lynne Schafer on 10-09-2024 Nucleated RBC/100 WBC (Bld) [Ratio] 0 % 0-5 [facility] Platelet countOrdered By: Belkys Schafer on 10-09-2024 Platelets (Bld) [#/Vol] 181 10*3/uL 150-450 [facility] Potassium measurement (mass/ volume)Ordered By: Lynne Schafer on 10-09-2024 Potassium (Unsp spec) [Mass/Vol] 4.9 mmol/L 3.3-5.1 [facility] Comment on above: Hemolysis present, R esults could be affected. RBC Auto (Bld) [#/Vol]Ordere d By: Lynne Schafer on 10-09-2024 RBC (Bld) [#/Vol] 4.84 10*6/uL 4.2-5.4 [facility] Serum creatinine measurement (mass/volume)Ordered By: Lynne Schafer on 10-09-2024 Creatinine [Mass/Vol] 0.44 mg/dL Low 0.70-1.20 [facility] Serum glucose measurement (m ass/volume)Ordered By: Lynne Schafer on 10-09-2024 Glucose [Mass/Vol] 113 mg/dL High 70-99 [facility] Serum or plasma calcium kadi urement (mass/volume)Ordered By: Lynne Schafer on 10-09-2024 Calcium [Mass/Vol] 8.4 mg/dL 7.6-11.0 [facility] Serum or plasma urea nitroge n measurement (mass/volume)Ordered By: Lynne Schafer on 10-09-2024 Urea nitrogen [Mass/Vol] 17 mg/dL 4-19 [facility] Sodium levelOrdered By: Lynne Schafer on 10-09-2024 Sodium [Moles/Vol] 139 mmol/L 133-145 [facility] White blood cell (WBC) count Ordered By: Lynne Schafer on 10-09-2024 WBC (Bld) [#/Vol] 9.7 10*3/uL 4.4-11.0 [facility] 12 Lead EKGon 10-08-2024 12 Lead EKG Normal [facility] Basic Metabolic Profile (BMP )on 10-08-2024 BUN/CRE 34.4 RATIO High 10-20 [facility] Comment on above: Performed By: #### L 100.0100, L500.2500 ####[facility] [address] [place], [address] Calcium [Mass/Vol] 8.1 mg/dL Normal 7.6-11.0 [facility] Comment on above: Performed By: #### L 100.0100, L500.2500 ####[facility] [address] [place], [address] Chloride [Moles/Vol] 92 mmol/L Low 98-108 [facility] Comment on above: Performed By: #### L 100.0100, L500.2500 ####[facility] [address] [place], [address] CO2 [Moles/Vol] 38.6 mmol/L High 21.0-32.0 [facility] Comment on above: Performed By: #### L 100.0100, L500.2500 ####[facility] [address] [place], [address] Creatinine [Mass/Vol] 0.51 mg/dL Low 0.70-1.20 [facility] Comment on above: Performed By: #### L 100.0100, L500.2500 ####[facility] [address] [place], [address] ECRCL 64.27 ml/min Normal 50-250 [facility] Comment on above: Performed By: #### L 100.0100, L500.2500 ####[facility] [address] [place], [address] GAP 7 Normal 5-15 [facility] Comment on above: Performed By: #### L 100.0100, L500.2500 ####[facility] [address] [place], [address] GFR/1.73 sq M.predicted among non-blacks MDRD (S/P/Bld) [Vol rate/Area] 101 mL/min/{1.73_m2} Normal >60 [facility] Comment on above: Result Comment: mL/m in/1.73m2 CKD-EPI Creatinine Equation (2020) Performed By: #### L 100.0100, L500.2500 ####[facility] [address] [place], [address] Glucose [Mass/Vol] 179 mg/dL High 70-99 [facility] Comment on above: Performed By: #### L 100.0100, L500.2500 ####[facility] [address] [place], [address] Potassium [Moles/Vol] 4.6 mmol/L Normal 3.3-5.1 [facility] Comment on above: Performed By: #### L 100.0100, L500.2500 ####[facility] [address] [place], [address] Sodium [Moles/Vol] 138 mmol/L Normal 133-145 [facility] Comment on above: Performed By: #### L 100.0100, L500.2500 ####[facility] [address] [place], [address] Urea nitrogen [Mass/Vol] 18 mg/dL Normal 4-19 [facility] Comment on above: Performed By: #### L 100.0100, L500.2500 ####[facility] [address] [place], [address] CBC W/Diff, Automatedon 06-1 Absolute Lymph 0.41 X10 3/uL Low 0.83-4.51 [facility] Comment on above: Performed By: #### L 100.0100, L500.2500 ####[facility] [address] [place], [address] Absolute Neut 7.2 X10 3/uL Normal 2.0-7.7 [facility] Comment on above: Performed By: #### L 100.0100, L500.2500 ####[facility] [address] [place], [address] Basophils/100 WBC (Bld) 0.2 % Normal 0-1 [facility] Comment on above: Performed By: #### L 100.0100, L500.2500 ####[facility] [address] [place], [address] Eosinophils/100 WBC (Bld) 0.0 % Normal 0-5 [facility] Comment on above: Performed By: #### L 100.0100, L500.2500 ####[facility] [address] [place], [address] Erythrocyte distribution width (RBC) [Ratio] 13.0 % Normal 11.6-14.6 [facility] Comment on above: Performed By: #### L 100.0100, L500.2500 ####[facility] [address] [place], [address] Hematocrit (Bld) [Volume fraction] 41.6 % Normal 37-47 [facility] Comment on above: Performed By: #### L 100.0100, L500.2500 ####[facility] [address] [place], [address] Hemoglobin (Bld) [Mass/Vol] 13.2 g/dL Normal 12.0-15.0 [facility] Comment on above: Performed By: #### L 100.0100, L500.2500 ####[facility] [address] [place], [address] IG% 0.900 Normal 0.0-0.9 [facility] Comment on above: Result Comment: IG% - Immature Granulocytes (promyelocytes, myelocytes andmetamyelocytes) > 1% indicates that a LEFT SHIFT is Present. Performed By: #### L 100.0100, L500.2500 ####[facility] [address] [place], [address] Lymphocytes/100 WBC (Bld) 5.1 % Low 19-41 [facility] Comment on above: Performed By: #### L 100.0100, L500.2500 ####[facility] [address] [place], [address] MCH (RBC) [Entitic mass] 27.3 pg Normal 27.0-32.0 [facility] Comment on above: Performed By: #### L 100.0100, L500.2500 ####[facility] [address] [place], [address] MCHC (RBC) [Mass/Vol] 31.7 g/dL Low 32-36 [facility] Comment on above: Performed By: #### L 100.0100, L500.2500 ####[facility] [address] [place], [address] MCV (RBC) [Entitic vol] 86.1 fL Normal 81-99 [facility] Comment on above: Performed By: #### L 100.0100, L500.2500 ####[facility] [address] [place], [address] Monocytes/100 WBC (Bld) 4.7 % Normal 0-10 [facility] Comment on above: Performed By: #### L 100.0100, L500.2500 ####[facility] [address] [place], [address] Neutrophils/100 WBC (Bld) 89.1 % High 47-70 [facility] Comment on above: Performed By: #### L 100.0100, L500.2500 ####[facility] [address] [place], [address] Nucleated RBC (Bld) [#/Vol] 0 10*3/uL Normal 0-5 [facility] Comment on above: Performed By: #### L 100.0100, L500.2500 ####[facility] [address] [place], [address] Platelet mean volume (Bld) [Entitic vol] 10.0 fL Normal 6.2-12.0 [facility] Comment on above: Performed By: #### L 100.0100, L500.2500 ####[facility] [address] [place], [address] Platelets (Bld) [#/Vol] 168 10*3/uL Normal 150-450 [facility] Comment on above: Performed By: #### L 100.0100, L500.2500 ####[facility] [address] [place], [address] RBC (Bld) [#/Vol] 4.83 10*6/uL Normal 4.2-5.4 [facility] Comment on above: Performed By: #### L 100.0100, L500.2500 ####[facility] [address] [place], [address] RDW SD 40.7 fl Normal 35.1-43.9 [facility] Comment on above: Performed By: #### L 100.0100, L500.2500 ####[facility] [address] [place], [address] WBC (Bld) [#/Vol] 8.1 10*3/uL Normal 4.4-11.0 [facility] Comment on above: Performed By: #### L 100.0100, L500.2500 ####[facility] [address] [place], [address] Basic Metabolic Profile (BMP )on 10-07-2024 BUN/CRE 37.1 RATIO High 10-20 [facility] Comment on above: Performed By: #### L 500.2500, L100.0100 ####[facility] [address] [place], [address] Calcium [Mass/Vol] 8.1 mg/dL Normal 7.6-11.0 [facility] Comment on above: Performed By: #### L 500.2500, L100.0100 ####[facility] [address] [place], [address] Chloride [Moles/Vol] 93 mmol/L Low 98-108 [facility] Comment on above: Performed By: #### L 500.2500, L100.0100 ####[facility] [address] [place], [address] CO2 [Moles/Vol] 38.2 mmol/L High 21.0-32.0 [facility] Comment on above: Performed By: #### L 500.2500, L100.0100 ####[facility] [address] [place], [address] Creatinine [Mass/Vol] 0.50 mg/dL Low 0.70-1.20 [facility] Comment on above: Performed By: #### L 500.2500, L100.0100 ####[facility] [address] [place], [address] ECRCL 63.81 ml/min Normal 50-250 [facility] Comment on above: Performed By: #### L 500.2500, L100.0100 ####[facility] [address] [place], [address] GAP 6 Normal 5-15 [facility] Comment on above: Performed By: #### L 500.2500, L100.0100 ####[facility] [address] [place], [address] GFR/1.73 sq M.predicted among non-blacks MDRD (S/P/Bld) [Vol rate/Area] 101 mL/min/{1.73_m2} Normal >60 [facility] Comment on above: Result Comment: mL/m in/1.73m2 CKD-EPI Creatinine Equation (2020) Performed By: #### L 500.2500, L100.0100 ####[facility] [address] [place], [address] Glucose [Mass/Vol] 192 mg/dL High 70-99 [facility] Comment on above: Performed By: #### L 500.2500, L100.0100 ####[facility] [address] [place], [address] Potassium [Moles/Vol] 4.8 mmol/L Normal 3.3-5.1 [facility] Comment on above: Result Comment: Hemo lysis present, Results??could be affected.?? Performed By: #### L 500.2500, L100.0100 ####[facility] [address] [place], [address] Sodium [Moles/Vol] 137 mmol/L Normal 133-145 [facility] Comment on above: Performed By: #### L 500.2500, L100.0100 ####[facility] [address] [place], [address] Urea nitrogen [Mass/Vol] 19 mg/dL Normal 4-19 [facility] Comment on above: Performed By: #### L 500.2500, L100.0100 ####[facility] [address] [place], [address] CBC W/Diff, Automatedon 06- Absolute Lymph 0.39 X10 3/uL Low 0.83-4.51 [facility] Comment on above: Performed By: #### L 500.2500, L100.0100 ####[facility] [address] [place], [address] Absolute Neut 8.0 X10 3/uL High 2.0-7.7 [facility] Comment on above: Performed By: #### L 500.2500, L100.0100 ####[facility] [address] [place], [address] Basophils/100 WBC (Bld) 0.2 % Normal 0-1 [facility] Comment on above: Performed By: #### L 500.2500, L100.0100 ####[facility] [address] [place], [address] Eosinophils/100 WBC (Bld) 0.0 % Normal 0-5 [facility] Comment on above: Performed By: #### L 500.2500, L100.0100 ####[facility] [address] [place], [address] Erythrocyte distribution width (RBC) [Ratio] 13.0 % Normal 11.6-14.6 [facility] Comment on above: Performed By: #### L 500.2500, L100.0100 ####[facility] [address] [place], [address] Hematocrit (Bld) [Volume fraction] 41.4 % Normal 37-47 [facility] Comment on above: Performed By: #### L 500.2500, L100.0100 ####[facility] [address] [place], [address] Hemoglobin (Bld) [Mass/Vol] 13.5 g/dL Normal 12.0-15.0 [facility] Comment on above: Performed By: #### L 500.2500, L100.0100 ####[facility] [address] [place], [address] IG% 0.900 Normal 0.0-0.9 [facility] Comment on above: Result Comment: IG% - Immature Granulocytes (promyelocytes, myelocytes andmetamyelocytes) > 1% indicates that a LEFT SHIFT is Present. Performed By: #### L 500.2500, L100.0100 ####[facility] [address] [place], [address] Lymphocytes/100 WBC (Bld) 4.3 % Low 19-41 [facility] Comment on above: Performed By: #### L 500.2500, L100.0100 ####[facility] [address] [place], [address] MCH (RBC) [Entitic mass] 28.2 pg Normal 27.0-32.0 [facility] Comment on above: Performed By: #### L 500.2500, L100.0100 ####[facility] [address] [place], [address] MCHC (RBC) [Mass/Vol] 32.6 g/dL Normal 32-36 [facility] Comment on above: Performed By: #### L 500.2500, L100.0100 ####[facility] [address] [place], [address] MCV (RBC) [Entitic vol] 86.6 fL Normal 81-99 [facility] Comment on above: Performed By: #### L 500.2500, L100.0100 ####[facility] [address] [place], [address] Monocytes/100 WBC (Bld) 5.4 % Normal 0-10 [facility] Comment on above: Performed By: #### L 500.2500, L100.0100 ####[facility] [address] [place], [address] Neutrophils/100 WBC (Bld) 89.2 % High 47-70 [facility] Comment on above: Performed By: #### L 500.2500, L100.0100 ####[facility] [address] [place], [address] Nucleated RBC (Bld) [#/Vol] 0 10*3/uL Normal 0-5 [facility] Comment on above: Performed By: #### L 500.2500, L100.0100 ####[facility] [address] [place], [address] Platelet mean volume (Bld) [Entitic vol] 9.9 fL Normal 6.2-12.0 [facility] Comment on above: Performed By: #### L 500.2500, L100.0100 ####[facility] [address] [place], [address] Platelets (Bld) [#/Vol] 176 10*3/uL Normal 150-450 [facility] Comment on above: Performed By: #### L 500.2500, L100.0100 ####[facility] [address] [place], [address] RBC (Bld) [#/Vol] 4.78 10*6/uL Normal 4.2-5.4 [facility] Comment on above: Performed By: #### L 500.2500, L100.0100 ####[facility] [address] [place], [address] RDW SD 41.1 fl Normal 35.1-43.9 [facility] Comment on above: Performed By: #### L 500.2500, L100.0100 ####[facility] [address] [place], [address] WBC (Bld) [#/Vol] 9.0 10*3/uL Normal 4.4-11.0 [facility] Comment on above: Performed By: #### L 500.2500, L100.0100 ####[facility] [address] [place], [address] Magnesiumon 10-07-2024 Magnesium [Mass/Vol] 2.5 mg/dL High 1.5-2.2 [facility] Comment on above: Performed By: #### L 501.5200 ####[facility] [address] [place], [address] Magnesium measurement (mass/ volume)Ordered By: Michael Plasencia on 10-07-2024 Magnesium (Unsp spec) [Mass/Vol] 2.5 mg/dL High 1.5-2.2 [facility] Basic Metabolic Profile (BMP )on 10-06-2024 BUN/CRE 43.8 RATIO High 10-20 [facility] Comment on above: Performed By: #### L 100.0100, L500.2500 ####[facility] [address] [place], [address] Calcium [Mass/Vol] 8.3 mg/dL Normal 7.6-11.0 [facility] Comment on above: Performed By: #### L 100.0100, L500.2500 ####[facility] [address] [place], [address] Chloride [Moles/Vol] 94 mmol/L Low 98-108 [facility] Comment on above: Performed By: #### L 100.0100, L500.2500 ####[facility] [address] [place], [address] CO2 [Moles/Vol] 36.3 mmol/L High 21.0-32.0 [facility] Comment on above: Performed By: #### L 100.0100, L500.2500 ####[facility] [address] [place], [address] Creatinine [Mass/Vol] 0.45 mg/dL Low 0.70-1.20 [facility] Comment on above: Performed By: #### L 100.0100, L500.2500 ####[facility] [address] [place], [address] ECRCL 63.77 ml/min Normal 50-250 [facility] Comment on above: Performed By: #### L 100.0100, L500.2500 ####[facility] [address] [place], [address] GAP 7 Normal 5-15 [facility] Comment on above: Performed By: #### L 100.0100, L500.2500 ####[facility] [address] [place], [address] GFR/1.73 sq M.predicted among non-blacks MDRD (S/P/Bld) [Vol rate/Area] 104 mL/min/{1.73_m2} Normal >60 [facility] Comment on above: Result Comment: mL/m in/1.73m2 CKD-EPI Creatinine Equation (2020) Performed By: #### L 100.0100, L500.2500 ####[facility] [address] [place], [address] Glucose [Mass/Vol] 168 mg/dL High 70-99 [facility] Comment on above: Performed By: #### L 100.0100, L500.2500 ####[facility] [address] [place], [address] Potassium [Moles/Vol] 4.5 mmol/L Normal 3.3-5.1 [facility] Comment on above: Performed By: #### L 100.0100, L500.2500 ####[facility] [address] [place], [address] Sodium [Moles/Vol] 137 mmol/L Normal 133-145 [facility] Comment on above: Performed By: #### L 100.0100, L500.2500 ####[facility] [address] [place], [address] Urea nitrogen [Mass/Vol] 20 mg/dL High 4-19 [facility] Comment on above: Performed By: #### L 100.0100, L500.2500 ####[facility] [address] [place], [address] CBC W/Diff, Automatedon 06-04 28-2024 Absolute Lymph 0.44 X10 3/uL Low 0.83-4.51 [facility] Comment on above: Performed By: #### L 100.0100, L500.2500 ####[facility] [address] [place], [address] Absolute Neut 8.7 X10 3/uL High 2.0-7.7 [facility] Comment on above: Performed By: #### L 100.0100, L500.2500 ####[facility] [address] [place], [address] Basophils/100 WBC (Bld) 0.1 % Normal 0-1 [facility] Comment on above: Performed By: #### L 100.0100, L500.2500 ####[facility] [address] [place], [address] Eosinophils/100 WBC (Bld) 0.0 % Normal 0-5 [facility] Comment on above: Performed By: #### L 100.0100, L500.2500 ####[facility] [address] [place], [address] Erythrocyte distribution width (RBC) [Ratio] 13.0 % Normal 11.6-14.6 [facility] Comment on above: Performed By: #### L 100.0100, L500.2500 ####[facility] [address] [place], [address] Hematocrit (Bld) [Volume fraction] 43.5 % Normal 37-47 [facility] Comment on above: Performed By: #### L 100.0100, L500.2500 ####[facility] [address] [place], [address] Hemoglobin (Bld) [Mass/Vol] 14.2 g/dL Normal 12.0-15.0 [facility] Comment on above: Performed By: #### L 100.0100, L500.2500 ####[facility] [address] [place], [address] IG% 0.800 Normal 0.0-0.9 [facility] Comment on above: Result Comment: IG% - Immature Granulocytes (promyelocytes, myelocytes andmetamyelocytes) > 1% indicates that a LEFT SHIFT is Present. Performed By: #### L 100.0100, L500.2500 ####[facility] [address] [place], [address] Lymphocytes/100 WBC (Bld) 4.6 % Low 19-41 [facility] Comment on above: Performed By: #### L 100.0100, L500.2500 ####[facility] [address] [place], [address] MCH (RBC) [Entitic mass] 27.7 pg Normal 27.0-32.0 [facility] Comment on above: Performed By: #### L 100.0100, L500.2500 ####[facility] [address] [place], [address] MCHC (RBC) [Mass/Vol] 32.6 g/dL Normal 32-36 [facility] Comment on above: Performed By: #### L 100.0100, L500.2500 ####[facility] [address] [place], [address] MCV (RBC) [Entitic vol] 84.8 fL Normal 81-99 [facility] Comment on above: Performed By: #### L 100.0100, L500.2500 ####[facility] [address] [place], [address] Monocytes/100 WBC (Bld) 3.9 % Normal 0-10 [facility] Comment on above: Performed By: #### L 100.0100, L500.2500 ####[facility] [address] [place], [address] Neutrophils/100 WBC (Bld) 90.6 % High 47-70 [facility] Comment on above: Performed By: #### L 100.0100, L500.2500 ####[facility] [address] [place], [address] Nucleated RBC (Bld) [#/Vol] 0 10*3/uL Normal 0-5 [facility] Comment on above: Performed By: #### L 100.0100, L500.2500 ####[facility] [address] [place], [address] Platelet mean volume (Bld) [Entitic vol] 10.2 fL Normal 6.2-12.0 [facility] Comment on above: Performed By: #### L 100.0100, L500.2500 ####[facility] [address] [place], [address] Platelets (Bld) [#/Vol] 176 10*3/uL Normal 150-450 [facility] Comment on above: Performed By: #### L 100.0100, L500.2500 ####[facility] [address] [place], [address] RBC (Bld) [#/Vol] 5.13 10*6/uL Normal 4.2-5.4 [facility] Comment on above: Performed By: #### L 100.0100, L500.2500 ####[facility] [address] [place], [address] RDW SD 40.3 fl Normal 35.1-43.9 [facility] Comment on above: Performed By: #### L 100.0100, L500.2500 ####[facility] [address] [place], [address] WBC (Bld) [#/Vol] 9.7 10*3/uL Normal 4.4-11.0 [facility] Comment on above: Performed By: #### L 100.0100, L500.2500 ####[facility] [address] [place], [address] Basic Metabolic Profile (BMP )on 10-05-2024 BUN/CRE 44.0 RATIO High 10-20 [facility] Comment on above: Performed By: #### L 100.0100, L500.2500 ####[facility] [address] [place], [address] Calcium [Mass/Vol] 8.5 mg/dL Normal 7.6-11.0 [facility] Comment on above: Performed By: #### L 100.0100, L500.2500 ####[facility] [address] [place], [address] Chloride [Moles/Vol] 94 mmol/L Low 98-108 [facility] Comment on above: Performed By: #### L 100.0100, L500.2500 ####[facility] [address] [place], [address] CO2 [Moles/Vol] 36.3 mmol/L High 21.0-32.0 [facility] Comment on above: Performed By: #### L 100.0100, L500.2500 ####[facility] [address] [place], [address] Creatinine [Mass/Vol] 0.52 mg/dL Low 0.70-1.20 [facility] Comment on above: Performed By: #### L 100.0100, L500.2500 ####[facility] [address] [place], [address] ECRCL 64.35 ml/min Normal 50-250 [facility] Comment on above: Performed By: #### L 100.0100, L500.2500 ####[facility] [address] [place], [address] GAP 6 Normal 5-15 [facility] Comment on above: Performed By: #### L 100.0100, L500.2500 ####[facility] [address] [place], [address] GFR/1.73 sq M.predicted among non-blacks MDRD (S/P/Bld) [Vol rate/Area] 101 mL/min/{1.73_m2} Normal >60 [facility] Comment on above: Result Comment: mL/m in/1.73m2 CKD-EPI Creatinine Equation (2020) Performed By: #### L 100.0100, L500.2500 ####[facility] [address] [place], [address] Glucose [Mass/Vol] 130 mg/dL High 70-99 [facility] Comment on above: Performed By: #### L 100.0100, L500.2500 ####[facility] [address] [place], [address] Potassium [Moles/Vol] 4.7 mmol/L Normal 3.3-5.1 [facility] Comment on above: Result Comment: Hemo lysis present, Results??could be affected.?? Performed By: #### L 100.0100, L500.2500 ####[facility] [address] [place], [address] Sodium [Moles/Vol] 137 mmol/L Normal 133-145 [facility] Comment on above: Performed By: #### L 100.0100, L500.2500 ####[facility] [address] [place], [address] Urea nitrogen [Mass/Vol] 23 mg/dL High 4-19 [facility] Comment on above: Performed By: #### L 100.0100, L500.2500 ####[facility] [address] [place], [address] CBC W/Diff, Automatedon - 2-2024 Absolute Lymph 0.47 X10 3/uL Low 0.83-4.51 [facility] Comment on above: Performed By: #### L 100.0100, L500.2500 ####[facility] [address] [place], [address] Absolute Neut 8.2 X10 3/uL High 2.0-7.7 [facility] Comment on above: Performed By: #### L 100.0100, L500.2500 ####[facility] [address] [place], [address] Basophils/100 WBC (Bld) 0.1 % Normal 0-1 [facility] Comment on above: Performed By: #### L 100.0100, L500.2500 ####[facility] [address] [place], [address] Eosinophils/100 WBC (Bld) 0.0 % Normal 0-5 [facility] Comment on above: Performed By: #### L 100.0100, L500.2500 ####[facility] [address] [place], [address] Erythrocyte distribution width (RBC) [Ratio] 12.9 % Normal 11.6-14.6 [facility] Comment on above: Performed By: #### L 100.0100, L500.2500 ####[facility] [address] [place], [address] Hematocrit (Bld) [Volume fraction] 41.7 % Normal 37-47 [facility] Comment on above: Performed By: #### L 100.0100, L500.2500 ####[facility] [address] [place], [address] Hemoglobin (Bld) [Mass/Vol] 13.7 g/dL Normal 12.0-15.0 [facility] Comment on above: Performed By: #### L 100.0100, L500.2500 ####[facility] [address] [place], [address] IG% 0.600 Normal 0.0-0.9 [facility] Comment on above: Result Comment: IG% - Immature Granulocytes (promyelocytes, myelocytes andmetamyelocytes) > 1% indicates that a LEFT SHIFT is Present. Performed By: #### L 100.0100, L500.2500 ####[facility] [address] [place], [address] Lymphocytes/100 WBC (Bld) 5.2 % Low 19-41 [facility] Comment on above: Performed By: #### L 100.0100, L500.2500 ####[facility] [address] [place], [address] MCH (RBC) [Entitic mass] 28.0 pg Normal 27.0-32.0 [facility] Comment on above: Performed By: #### L 100.0100, L500.2500 ####[facility] [address] [place], [address] MCHC (RBC) [Mass/Vol] 32.9 g/dL Normal 32-36 [facility] Comment on above: Performed By: #### L 100.0100, L500.2500 ####[facility] [address] [place], [address] MCV (RBC) [Entitic vol] 85.3 fL Normal 81-99 [facility] Comment on above: Performed By: #### L 100.0100, L500.2500 ####[facility] [address] [place], [address] Monocytes/100 WBC (Bld) 3.0 % Normal 0-10 [facility] Comment on above: Performed By: #### L 100.0100, L500.2500 ####[facility] [address] [place], [address] Neutrophils/100 WBC (Bld) 91.1 % High 47-70 [facility] Comment on above: Performed By: #### L 100.0100, L500.2500 ####[facility] [address] [place], [address] Nucleated RBC (Bld) [#/Vol] 0 10*3/uL Normal 0-5 [facility] Comment on above: Performed By: #### L 100.0100, L500.2500 ####[facility] [address] [place], [address] Platelet mean volume (Bld) [Entitic vol] 10.6 fL Normal 6.2-12.0 [facility] Comment on above: Performed By: #### L 100.0100, L500.2500 ####[facility] [address] [place], [address] Platelets (Bld) [#/Vol] 172 10*3/uL Normal 150-450 [facility] Comment on above: Performed By: #### L 100.0100, L500.2500 ####[facility] [address] [place], [address] RBC (Bld) [#/Vol] 4.89 10*6/uL Normal 4.2-5.4 [facility] Comment on above: Performed By: #### L 100.0100, L500.2500 ####[facility] [address] [place], [address] RDW SD 39.9 fl Normal 35.1-43.9 [facility] Comment on above: Performed By: #### L 100.0100, L500.2500 ####[facility] [address] [place], [address] WBC (Bld) [#/Vol] 9.0 10*3/uL Normal 4.4-11.0 [facility] Comment on above: Performed By: #### L 100.0100, L500.2500 ####[facility] [address] [place], [address] Electrocardiogram reportOrde red By: Junito Madrid on 10-05-2024 EKG study [facility] Cardi[facility] Services [address] [facility] [place] [address] 12 Lead EKG 10/04/24 1439 MR#: [id number] Acct: [id number] Name: DENIA GONZALEZ Rep #:[id number] : 1955 69 From: Junito contreras MD Attending Dr: Dr. Lynne Schafer MD Status: ADM IN Ordering Dr: Lynne Schafer MD Date: 10/04/24 Location: [facility] Sex: F C Admitted: 09/29/24 Test Reason [...] replaced Atrial fibrillation Confirmed by Junito Madrid ([id number]), food editor LEORA RESTREPO ([id number]) on 10/05/2024 8:34:43 AM Referred By: Confirmed By: Junito Madrid 10/05/24 0834 Date _ Junito Madrid MD CC: Dr. Yoseph Fall MD; Dr. Lynne Schafer MD ~ Signed [facility] Work Phone: 12 Lead EKGon 10-04-2024 12 Lead EKG Normal [facility] Basic Metabolic Profile (BMP )on 10-04-2024 BUN/CRE 36.3 RATIO High 10-20 [facility] Comment on above: Performed By: #### L 100.0100, L500.2500 ####[facility] [address] [place], [address] Calcium [Mass/Vol] 8.7 mg/dL Normal 7.6-11.0 [facility] Comment on above: Performed By: #### L 100.0100, L500.2500 ####[facility] [address] [place], [address] Chloride [Moles/Vol] 94 mmol/L Low 98-108 [facility] Comment on above: Performed By: #### L 100.0100, L500.2500 ####[facility] [address] [place], [address] CO2 [Moles/Vol] 35.4 mmol/L High 21.0-32.0 [facility] Comment on above: Performed By: #### L 100.0100, L500.2500 ####[facility] [address] [place], [address] Creatinine [Mass/Vol] 0.58 mg/dL Low 0.70-1.20 [facility] Comment on above: Performed By: #### L 100.0100, L500.2500 ####[facility] [address] [place], [address] ECRCL 63.56 ml/min Normal 50-250 [facility] Comment on above: Performed By: #### L 100.0100, L500.2500 ####[facility] [address] [place], [address] GAP 8 Normal 5-15 [facility] Comment on above: Performed By: #### L 100.0100, L500.2500 ####[facility] [address] [place], [address] GFR/1.73 sq M.predicted among non-blacks MDRD (S/P/Bld) [Vol rate/Area] 98 mL/min/{1.73_m2} Normal >60 [facility] Comment on above: Result Comment: mL/m in/1.73m2 CKD-EPI Creatinine Equation (2020) Performed By: #### L 100.0100, L500.2500 ####[facility] [address] [place], [address] Glucose [Mass/Vol] 125 mg/dL High 70-99 [facility] Comment on above: Performed By: #### L 100.0100, L500.2500 ####[facility] [address] [place], [address] Potassium [Moles/Vol] 4.6 mmol/L Normal 3.3-5.1 [facility] Comment on above: Performed By: #### L 100.0100, L500.2500 ####[facility] [facility] [address] [place], [address] Sodium [Moles/Vol] 137 mmol/L Normal 133-145 [facility] Comment on above: Performed By: #### L 100.0100, L500.2500 ####[facility] [address] [place], [address] Urea nitrogen [Mass/Vol] 21 mg/dL High 4-19 [facility] Comment on above: Performed By: #### L 100.0100, L500.2500 ####[facility] [address] [place], [address] CBC W/Diff, Automatedon 06- Absolute Lymph 0.46 X10 3/uL Low 0.83-4.51 [facility] Comment on above: Performed By: #### L 100.0100, L500.2500 ####[facility] [address] [place], [address] Absolute Neut 6.5 X10 3/uL Normal 2.0-7.7 [facility] Comment on above: Performed By: #### L 100.0100, L500.2500 ####[facility] [address] [place], [address] Basophils/100 WBC (Bld) 0.0 % Normal 0-1 [facility] Comment on above: Performed By: #### L 100.0100, L500.2500 ####[facility] [address] [place], [address] Eosinophils/100 WBC (Bld) 0.0 % Normal 0-5 [facility] Comment on above: Performed By: #### L 100.0100, L500.2500 ####[facility] [address] [place], [address] Erythrocyte distribution width (RBC) [Ratio] 12.9 % Normal 11.6-14.6 [facility] Comment on above: Performed By: #### L 100.0100, L500.2500 ####[facility] [address] [place], [address] Hematocrit (Bld) [Volume fraction] 41.4 % Normal 37-47 [facility] Comment on above: Performed By: #### L 100.0100, L500.2500 ####[facility] [address] [place], [address] Hemoglobin (Bld) [Mass/Vol] 13.9 g/dL Normal 12.0-15.0 [facility] Comment on above: Performed By: #### L 100.0100, L500.2500 ####[facility] [address] [place], [address] IG% 0.600 Normal 0.0-0.9 [facility] Comment on above: Result Comment: IG% - Immature Granulocytes (promyelocytes, myelocytes andmetamyelocytes) > 1% indicates that a LEFT SHIFT is Present. Performed By: #### L 100.0100, L500.2500 ####[facility] [address] [place], [address] Lymphocytes/100 WBC (Bld) 6.4 % Low 19-41 [facility] Comment on above: Performed By: #### L 100.0100, L500.2500 ####[facility] [address] [place], [address] MCH (RBC) [Entitic mass] 28.6 pg Normal 27.0-32.0 [facility] Comment on above: Performed By: #### L 100.0100, L500.2500 ####[facility] [address] [place], [address] MCHC (RBC) [Mass/Vol] 33.6 g/dL Normal 32-36 [facility] Comment on above: Performed By: #### L 100.0100, L500.2500 ####[facility] [address] [place], [address] MCV (RBC) [Entitic vol] 85.2 fL Normal 81-99 [facility] Comment on above: Performed By: #### L 100.0100, L500.2500 ####[facility] [address] [place], [address] Monocytes/100 WBC (Bld) 2.9 % Normal 0-10 [facility] Comment on above: Performed By: #### L 100.0100, L500.2500 ####[facility] [address] [place], [address] Neutrophils/100 WBC (Bld) 90.1 % High 47-70 [facility] Comment on above: Performed By: #### L 100.0100, L500.2500 ####[facility] [address] [place], [address] Nucleated RBC (Bld) [#/Vol] 0 10*3/uL Normal 0-5 [facility] Comment on above: Performed By: #### L 100.0100, L500.2500 ####[facility] [address] [place], [address] Platelet mean volume (Bld) [Entitic vol] 9.9 fL Normal 6.2-12.0 [facility] Comment on above: Performed By: #### L 100.0100, L500.2500 ####[facility] [address] [place], [address] Platelets (Bld) [#/Vol] 160 10*3/uL Normal 150-450 [facility] Comment on above: Performed By: #### L 100.0100, L500.2500 ####[facility] [address] [place], [address] RBC (Bld) [#/Vol] 4.86 10*6/uL Normal 4.2-5.4 [facility] Comment on above: Performed By: #### L 100.0100, L500.2500 ####[facility] [address] [place], [address] RDW SD 39.8 fl Normal 35.1-43.9 [facility] Comment on above: Performed By: #### L 100.0100, L500.2500 ####[facility] [address] [place], [address] WBC (Bld) [#/Vol] 7.2 10*3/uL Normal 4.4-11.0 [facility] Comment on above: Performed By: #### L 100.0100, L500.2500 ####[facility] [address] [place], [address] Basic Metabolic Profile (BMP )on 10-03-2024 BUN/CRE 34.9 RATIO High 10-20 [facility] Comment on above: Performed By: #### L 506.0400, L500.2500, L100.0100 ####[facility] [address], [address] Calcium [Mass/Vol] 8.8 mg/dL Normal 7.6-11.0 [facility] Comment on above: Performed By: #### L 506.0400, L500.2500, L100.0100 ####[facility] [address] [place], [address] Chloride [Moles/Vol] 93 mmol/L Low 98-108 [facility] Comment on above: Performed By: #### L 506.0400, L500.2500, L100.0100 ####[facility] [address] [place], [address] CO2 [Moles/Vol] 34.0 mmol/L High 21.0-32.0 [facility] Comment on above: Performed By: #### L 506.0400, L500.2500, L100.0100 ####[facility] [address], [address] Creatinine [Mass/Vol] 0.65 mg/dL Low 0.70-1.20 [facility] Comment on above: Performed By: #### L 506.0400, L500.2500, L100.0100 ####[facility] [address] [place], [address] ECRCL 63.56 ml/min Normal 50-250 [facility] Comment on above: Performed By: #### L 506.0400, L500.2500, L100.0100 ####[facility] [address], [address] GAP 9 Normal 5-15 [facility] Comment on above: Performed By: #### L 506.0400, L500.2500, L100.0100 ####[facility] [address] [place], [address] GFR/1.73 sq M.predicted among non-blacks MDRD (S/P/Bld) [Vol rate/Area] 95 mL/min/{1.73_m2} Normal >60 [facility] Comment on above: Result Comment: mL/m in/1.73m2 CKD-EPI Creatinine Equation (2020) Performed By: #### L 506.0400, L500.2500, L100.0100 ####[facility] [address] [place], [address] Glucose [Mass/Vol] 220 mg/dL High 70-99 [facility] Comment on above: Performed By: #### L 506.0400, L500.2500, L100.0100 ####[facility] [address] [place], [address] Potassium [Moles/Vol] 4.4 mmol/L Normal 3.3-5.1 [facility] Comment on above: Performed By: #### L 506.0400, L500.2500, L100.0100 ####[facility] [address] [place], [address] Sodium [Moles/Vol] 135 mmol/L Normal 133-145 [facility] Comment on above: Performed By: #### L 506.0400, L500.2500, L100.0100 ####[facility] [address] [place], [address] Urea nitrogen [Mass/Vol] 23 mg/dL High 4-19 [facility] Comment on above: Performed By: #### L 506.0400, L500.2500, L100.0100 ####[facility] [address] [place], [address] CBC W/Diff, Automatedon 06-1 0-2025 Absolute Lymph 0.48 X10 3/uL Low 0.83-4.51 [facility] Comment on above: Performed By: #### L 506.0400, L500.2500, L100.0100 ####[facility] [address] [place], [address] Absolute Neut 8.5 X10 3/uL High 2.0-7.7 [facility] Comment on above: Performed By: #### L 506.0400, L500.2500, L100.0100 ####[facility] [address] [place], [address] Basophils/100 WBC (Bld) 0.1 % Normal 0-1 [facility] Comment on above: Performed By: #### L 506.0400, L500.2500, L100.0100 ####[facility] [address] [place], [address] Eosinophils/100 WBC (Bld) 0.0 % Normal 0-5 [facility] Comment on above: Performed By: #### L 506.0400, L500.2500, L100.0100 ####[facility] [address] [place], [address] Erythrocyte distribution width (RBC) [Ratio] 13.1 % Normal 11.6-14.6 [facility] Comment on above: Performed By: #### L 506.0400, L500.2500, L100.0100 ####[facility] [address], [address] Hematocrit (Bld) [Volume fraction] 41.4 % Normal 37-47 [facility] Comment on above: Performed By: #### L 506.0400, L500.2500, L100.0100 ####[facility] [address] [place], [address] Hemoglobin (Bld) [Mass/Vol] 13.6 g/dL Normal 12.0-15.0 [facility] Comment on above: Performed By: #### L 506.0400, L500.2500, L100.0100 ####[facility] [address] [place], [address] IG% 0.300 Normal 0.0-0.9 [facility] Comment on above: Result Comment: IG% - Immature Granulocytes (promyelocytes, myelocytes andmetamyelocytes) > 1% indicates that a LEFT SHIFT is Present. Performed By: #### L 506.0400, L500.2500, L100.0100 ####[facility] [address] [place], [address] Lymphocytes/100 WBC (Bld) 5.2 % Low 19-41 [facility] Comment on above: Performed By: #### L 506.0400, L500.2500, L100.0100 ####[facility] [address] [place], [address] MCH (RBC) [Entitic mass] 28.2 pg Normal 27.0-32.0 [facility] Comment on above: Performed By: #### L 506.0400, L500.2500, L100.0100 ####[facility] [address] [place], [address] MCHC (RBC) [Mass/Vol] 32.9 g/dL Normal 32-36 [facility] Comment on above: Performed By: #### L 506.0400, L500.2500, L100.0100 ####[facility] [address] [place], [address] MCV (RBC) [Entitic vol] 85.7 fL Normal 81-99 [facility] Comment on above: Performed By: #### L 506.0400, L500.2500, L100.0100 ####[facility] [address] [place], [address] Monocytes/100 WBC (Bld) 1.2 % Normal 0-10 [facility] Comment on above: Performed By: #### L 506.0400, L500.2500, L100.0100 ####[facility] [address] [place], [address] Neutrophils/100 WBC (Bld) 93.2 % High 47-70 [facility] Comment on above: Performed By: #### L 506.0400, L500.2500, L100.0100 ####[facility] [address] [place], [address] Nucleated RBC (Bld) [#/Vol] 0 10*3/uL Normal 0-5 [facility] Comment on above: Performed By: #### L 506.0400, L500.2500, L100.0100 ####[facility] [address] [place], [address] Platelet mean volume (Bld) [Entitic vol] 10.2 fL Normal 6.2-12.0 [facility] Comment on above: Performed By: #### L 506.0400, L500.2500, L100.0100 ####[facility] [address] [place], [address] Platelets (Bld) [#/Vol] 184 10*3/uL Normal 150-450 [facility] Comment on above: Performed By: #### L 506.0400, L500.2500, L100.0100 ####[facility] [address] [place], [address] RBC (Bld) [#/Vol] 4.83 10*6/uL Normal 4.2-5.4 [facility] Comment on above: Performed By: #### L 506.0400, L500.2500, L100.0100 ####[facility] [address] [place], [address] RDW SD 40.3 fl Normal 35.1-43.9 [facility] Comment on above: Performed By: #### L 506.0400, L500.2500, L100.0100 ####[facility] [address] [place], [address] WBC (Bld) [#/Vol] 9.2 10*3/uL Normal 4.4-11.0 [facility] Comment on above: Performed By: #### L 506.0400, L500.2500, L100.0100 ####[facility] [address] [place], [address] Electrocardiogram reportOrde red By: Junito Madrid on 10-03-2024 EKG study [facility] Cardiovascular Services [address] [place] [address] 12 Lead EKG 10/02/24 1903 MR#: [id number] Acct: [id number] Name: DENIA GONZALEZ Rep #:[id number] : 1955 69 From: Junito contreras MD Attending Dr: Dr. Lynne Schafer MD Status: ADM IN Ordering Dr: Junito Madrid MD Date: 10/02/24 Location: [facility] Sex: F C Admitted: 09/29/24 Test Reason [...] was found Confirmed by Junito Madrid ([id number]), food editor LEORA RESTREPO ([id number]) on 10/03/2024 11:08:49 AM Referred By: Confirmed By: Junito Madrid 10/03/24 1108 Date _ Junito Madrid MD CC: Dr. Yoseph Fall MD; Dr. Junito Madrid MD; Dr. Lynne Schafer MD ~ Signed [facility] Work Phone: Respiratory Cultureon 2024 RESPC Normal [facility] Comment on above: Performed By: #### M 100.2400, M100.2000 ####[facility] [address] [place], [address] T4 Free Directon 10-03-2024 T4 FREE DIRECT 1.20 ng/dL Normal 0.76-1.46 [facility] Comment on above: Performed By: #### L 506.0400, L500.2500, L100.0100 ####[facility] [address] [place], [address] T4 freeOrdered By: Lynne soliz on 10-03-2024 Free T4 [Mass/Vol] 1.20 ng/dL 0.76-1.46 [facility] 12 Lead EKGon 10-02-2024 12 Lead EKG Normal [facility] 12 Lead EKG Normal [facility] Basic Metabolic Profile (BMP )on 10-02-2024 BUN/CRE 42.5 RATIO High 10-20 [facility] Comment on above: Performed By: #### L 100.0100, L500.2500 ####[facility] [address] [place], [address] Calcium [Mass/Vol] 8.9 mg/dL Normal 7.6-11.0 [facility] Comment on above: Performed By: #### L 100.0100, L500.2500 ####[facility] [address] [place], [address] Chloride [Moles/Vol] 95 mmol/L Low 98-108 [facility] Comment on above: Performed By: #### L 100.0100, L500.2500 ####[facility] [address] [place], [address] CO2 [Moles/Vol] 34.5 mmol/L High 21.0-32.0 [facility] Comment on above: Performed By: #### L 100.0100, L500.2500 ####[facility] [address] [place], [address] Creatinine [Mass/Vol] 0.55 mg/dL Low 0.70-1.20 [facility] Comment on above: Performed By: #### L 100.0100, L500.2500 ####[facility] [address] [place], [address] ECRCL 63.64 ml/min Normal 50-250 [facility] Comment on above: Performed By: #### L 100.0100, L500.2500 ####[facility] [address] [place], [address] GAP 9 Normal 5-15 [facility] Comment on above: Performed By: #### L 100.0100, L500.2500 ####[facility] [address] [place], [address] GFR/1.73 sq M.predicted among non-blacks MDRD (S/P/Bld) [Vol rate/Area] 99 mL/min/{1.73_m2} Normal >60 [facility] Comment on above: Result Comment: mL/m in/1.73m2 CKD-EPI Creatinine Equation (2020) Performed By: #### L 100.0100, L500.2500 ####[facility] [address] [place], [address] Glucose [Mass/Vol] 113 mg/dL High 70-99 [facility] Comment on above: Performed By: #### L 100.0100, L500.2500 ####[facility] [address] [place], [address] Potassium [Moles/Vol] 4.4 mmol/L Normal 3.3-5.1 [facility] Comment on above: Performed By: #### L 100.0100, L500.2500 ####[facility] [address] [place], [address] Sodium [Moles/Vol] 138 mmol/L Normal 133-145 [facility] Comment on above: Performed By: #### L 100.0100, L500.2500 ####[facility] [address] [place], [address] Urea nitrogen [Mass/Vol] 23 mg/dL High 4-19 [facility] Comment on above: Performed By: #### L 100.0100, L500.2500 ####[facility] [address] [place], [address] CBC W/Diff, Automatedon 06-0 9-2024 Absolute Lymph 0.50 X10 3/uL Low 0.83-4.51 [facility] Comment on above: Performed By: #### L 100.0100, L500.2500 ####[facility] [address] [place], [address] Absolute Neut 7.3 X10 3/uL Normal 2.0-7.7 [facility] Comment on above: Performed By: #### L 100.0100, L500.2500 ####[facility] [address] [place], [address] Basophils/100 WBC (Bld) 0.1 % Normal 0-1 [facility] Comment on above: Performed By: #### L 100.0100, L500.2500 ####[facility] [address] [place], [address] Eosinophils/100 WBC (Bld) 0.0 % Normal 0-5 [facility] Comment on above: Performed By: #### L 100.0100, L500.2500 ####[facility] [address] [place], [address] Erythrocyte distribution width (RBC) [Ratio] 13.1 % Normal 11.6-14.6 [facility] Comment on above: Performed By: #### L 100.0100, L500.2500 ####[facility] [address] [place], [address] Hematocrit (Bld) [Volume fraction] 40.4 % Normal 37-47 [facility] Comment on above: Performed By: #### L 100.0100, L500.2500 ####[facility] [address] [place], [address] Hemoglobin (Bld) [Mass/Vol] 13.4 g/dL Normal 12.0-15.0 [facility] Comment on above: Performed By: #### L 100.0100, L500.2500 ####[facility] [address] [place], [address] IG% 0.700 Normal 0.0-0.9 [facility] Comment on above: Result Comment: IG% - Immature Granulocytes (promyelocytes, myelocytes andmetamyelocytes) > 1% indicates that a LEFT SHIFT is Present. Performed By: #### L 100.0100, L500.2500 ####[facility] [address] [place], [address] Lymphocytes/100 WBC (Bld) 6.1 % Low 19-41 [facility] Comment on above: Performed By: #### L 100.0100, L500.2500 ####[facility] [address] [place], [address] MCH (RBC) [Entitic mass] 27.9 pg Normal 27.0-32.0 [facility] Comment on above: Performed By: #### L 100.0100, L500.2500 ####[facility] [address] [place], [address] MCHC (RBC) [Mass/Vol] 33.2 g/dL Normal 32-36 [facility] Comment on above: Performed By: #### L 100.0100, L500.2500 ####[facility] [address] [place], [address] MCV (RBC) [Entitic vol] 84.0 fL Normal 81-99 [facility] Comment on above: Performed By: #### L 100.0100, L500.2500 ####[facility] [address] [place], [address] Monocytes/100 WBC (Bld) 3.3 % Normal 0-10 [facility] Comment on above: Performed By: #### L 100.0100, L500.2500 ####[facility] [address] [place], [address] Neutrophils/100 WBC (Bld) 89.8 % High 47-70 [facility] Comment on above: Performed By: #### L 100.0100, L500.2500 ####[facility] [address] [place], [address] Nucleated RBC (Bld) [#/Vol] 0 10*3/uL Normal 0-5 [facility] Comment on above: Performed By: #### L 100.0100, L500.2500 ####[facility] [address] [place], [address] Platelet mean volume (Bld) [Entitic vol] 9.7 fL Normal 6.2-12.0 [facility] Comment on above: Performed By: #### L 100.0100, L500.2500 ####[facility] [address] [place], [address] Platelets (Bld) [#/Vol] 172 10*3/uL Normal 150-450 [facility] Comment on above: Performed By: #### L 100.0100, L500.2500 ####[facility] [address] [place], [address] RBC (Bld) [#/Vol] 4.81 10*6/uL Normal 4.2-5.4 [facility] Comment on above: Performed By: #### L 100.0100, L500.2500 ####[facility] [address] [place], [address] RDW SD 39.8 fl Normal 35.1-43.9 [facility] Comment on above: Performed By: #### L 100.0100, L500.2500 ####[facility] [address] [place], [address] WBC (Bld) [#/Vol] 8.2 10*3/uL Normal 4.4-11.0 [facility] Comment on above: Performed By: #### L 100.0100, L500.2500 ####[facility] [address] [place], [address] Consultation - Cardiologyon 10-02-2024 Consultation - Cardiology Normal [facility] Echo Completeon 10-02-2024 Echo Complete Normal [facility] Echocardiogram study reportO rdered By: Dillon Lopez on 10-02-2024 Study report [facility] Services [address] [place] [address] Echo Complete 10/02/24 1337 MR#: [id number] Acct: [id number] Name: DENIA GONZALEZ Rep #:[id number] : 1955 69 From: Dillon Lopez MD [...] Dictated: 10/02/24 1337 Date Transcribed: 10/02/24 1424 Regulatory Intern: Signed [facility] Work Phone: Electrocardiogram reportOrde red By: Junito Madrid on 10-02-2024 EKG study [facility] Cardiovascular Services [address] [place] [address] 12 Lead EKG 10/02/24 09 MR#: [id number] Acct: [id number] Name: DENIA GONZALEZ Rep #:[id number] : 1955 69 From: Junito contreras MD Attending Dr: Dr. Lynne Schafer MD Status: ADM IN Ordering Dr: Lynne Schafer MD Date: 10/02/24 Location: [facility] Sex: F C Admitted: 09/29/24 Test Reason [...] DATA IS UNCONFIRMED Confirmed by Junito Madrid ([id number]), food editor LEORA RESTREPO ([id number]) on 10/02/2024 10:43:05 AM Referred By: Confirmed By: Junito Madrid 10/02/24 1043 Date _ Junito Madrid MD CC: Dr. Yoseph Fall MD; Dr. Lynne Schafer MD ~ Signed [facility] Work Phone: Gram Stainon 10-02-2024 GS Acceptable Specimen? Yes (<25 Epithelial cells per/lpf) Gram Stain 2+ Gram positive cocci 2+ Gram positive rods 2+ Gram negative rods Normal [facility] Comment on above: Performed By: #### M 100.2400, M100.2000 ####[facility] [address] [place], [address] L499.0042on 10-02-2024 Trop T High Sen 23 ng/L High <=14 [facility] Comment on above: Performed By: #### L 499.0042 ####[facility] [address] [place], [address] L499.0043on 10-02-2024 Trop T High Sen 24 ng/L High <=14 [facility] Comment on above: Performed By: #### L 499.0043 ####[facility] [address] [place], [address] L501.4021on 10-02-2024 Trop T High Sen 23 ng/L High <=14 [facility] Comment on above: Performed By: #### L 501.4021 ####[facility] [address] [place], [address] Magnesiumon 10-02-2024 Magnesium [Mass/Vol] 2.1 mg/dL Normal 1.5-2.2 [facility] Comment on above: Performed By: #### L 501.9520, L501.5200 ####[facility] [address] [place], [address] TSH DL <= 0.005 mIU/L QnOrde red By: Lynne Schafer on 10-02-2024 TSH Qn 0.281 uIU/mL Low 0.300-4.200 [facility] Thyroid Stim Hormone (TSH)on 10-02-2024 TSH 0.281 uIU/mL Low 0.300-4.200 [facility] Comment on above: Performed By: #### L 501.9520, L501.5200 ####[facility] [address] [place], [address] Troponin T.cardiac [Mass/vol ume] in Serum or Plasma by High sensitivity methodOrdered By: Lynne Schafer on 10-02-2024 Troponin T.cardiac High sensitivity method [Mass/Vol] 24 ng/L High <14 [facility] Troponin T.cardiac High sensitivity method [Mass/Vol] 23 ng/L High <14 [facility] Troponin T.cardiac High sensitivity method [Mass/Vol] 23 ng/L High <14 [facility] Basic Metabolic Profile (BMP )on 10-01-2024 BUN/CRE 35.9 RATIO High 10-20 [facility] Comment on above: Performed By: #### L 500.2500, L100.0100 ####[facility] [address] [place], [address] Calcium [Mass/Vol] 9.2 mg/dL Normal 7.6-11.0 [facility] Comment on above: Performed By: #### L 500.2500, L100.0100 ####[facility] [address] [place], [address] Chloride [Moles/Vol] 94 mmol/L Low 98-108 [facility] Comment on above: Performed By: #### L 500.2500, L100.0100 ####[facility] [address] [place], [address] CO2 [Moles/Vol] 34.2 mmol/L High 21.0-32.0 [facility] Comment on above: Performed By: #### L 500.2500, L100.0100 ####[facility] [address] [place], [address] Creatinine [Mass/Vol] 0.59 mg/dL Low 0.70-1.20 [facility] Comment on above: Performed By: #### L 500.2500, L100.0100 ####[facility] [address] [place], [address] ECRCL 65.06 ml/min Normal 50-250 [facility] Comment on above: Performed By: #### L 500.2500, L100.0100 ####[facility] [address] [place], [address] GAP 10 Normal 5-15 [facility] Comment on above: Performed By: #### L 500.2500, L100.0100 ####[facility] [address] [place], [address] GFR/1.73 sq M.predicted among non-blacks MDRD (S/P/Bld) [Vol rate/Area] 97 mL/min/{1.73_m2} Normal >60 [facility] Comment on above: Result Comment: mL/m in/1.73m2 CKD-EPI Creatinine Equation (2020) Performed By: #### L 500.2500, L100.0100 ####[facility] [address] [place], [address] Glucose [Mass/Vol] 111 mg/dL High 70-99 [facility] Comment on above: Performed By: #### L 500.2500, L100.0100 ####[facility] [address] [place], [address] Potassium [Moles/Vol] 4.1 mmol/L Normal 3.3-5.1 [facility] Comment on above: Performed By: #### L 500.2500, L100.0100 ####[facility] [address] [place], [address] Sodium [Moles/Vol] 138 mmol/L Normal 133-145 [facility] Comment on above: Performed By: #### L 500.2500, L100.0100 ####[facility] [address] [place], [address] Urea nitrogen [Mass/Vol] 21 mg/dL High 4-19 [facility] Comment on above: Performed By: #### L 500.2500, L100.0100 ####[facility] [address] [place], [address] CBC W/Diff, Automatedon 06-0 8-5 Absolute Lymph 0.58 X10 3/uL Low 0.83-4.51 [facility] Comment on above: Performed By: #### L 500.2500, L100.0100 ####[facility] [address] [place], [address] Absolute Neut 7.6 X10 3/uL Normal 2.0-7.7 [facility] Comment on above: Performed By: #### L 500.2500, L100.0100 ####[facility] [address] [place], [address] Basophils/100 WBC (Bld) 0.1 % Normal 0-1 [facility] Comment on above: Performed By: #### L 500.2500, L100.0100 ####[facility] [address] [place], [address] Eosinophils/100 WBC (Bld) 0.0 % Normal 0-5 [facility] Comment on above: Performed By: #### L 500.2500, L100.0100 ####[facility] [address] [place], [address] Erythrocyte distribution width (RBC) [Ratio] 12.9 % Normal 11.6-14.6 [facility] Comment on above: Performed By: #### L 500.2500, L100.0100 ####[facility] [address] [place], [address] Hematocrit (Bld) [Volume fraction] 40.9 % Normal 37-47 [facility] Comment on above: Performed By: #### L 500.2500, L100.0100 ####[facility] [address] [place], [address] Hemoglobin (Bld) [Mass/Vol] 13.5 g/dL Normal 12.0-15.0 [facility] Comment on above: Performed By: #### L 500.2500, L100.0100 ####[facility] [address] [place], [address] IG% 0.500 Normal 0.0-0.9 [facility] Comment on above: Result Comment: IG% - Immature Granulocytes (promyelocytes, myelocytes andmetamyelocytes) > 1% indicates that a LEFT SHIFT is Present. Performed By: #### L 500.2500, L100.0100 ####[facility] [address] [place], [address] Lymphocytes/100 WBC (Bld) 6.8 % Low 19-41 [facility] Comment on above: Performed By: #### L 500.2500, L100.0100 ####[facility] [address] [place], [address] MCH (RBC) [Entitic mass] 27.6 pg Normal 27.0-32.0 [facility] Comment on above: Performed By: #### L 500.2500, L100.0100 ####[facility] [address] [place], [address] MCHC (RBC) [Mass/Vol] 33.0 g/dL Normal 32-36 [facility] Comment on above: Performed By: #### L 500.2500, L100.0100 ####[facility] [address] [place], [address] MCV (RBC) [Entitic vol] 83.5 fL Normal 81-99 [facility] Comment on above: Performed By: #### L 500.2500, L100.0100 ####[facility] [address] [place], [address] Monocytes/100 WBC (Bld) 3.6 % Normal 0-10 [facility] Comment on above: Performed By: #### L 500.2500, L100.0100 ####[facility] [address] [place], [address] Neutrophils/100 WBC (Bld) 89.0 % High 47-70 [facility] Comment on above: Performed By: #### L 500.2500, L100.0100 ####[facility] [address] [place], [address] Nucleated RBC (Bld) [#/Vol] 0 10*3/uL Normal 0-5 [facility] Comment on above: Performed By: #### L 500.2500, L100.0100 ####[facility] [address] [place], [address] Platelet mean volume (Bld) [Entitic vol] 9.8 fL Normal 6.2-12.0 [facility] Comment on above: Performed By: #### L 500.2500, L100.0100 ####[facility] [address] [place], [address] Platelets (Bld) [#/Vol] 176 10*3/uL Normal 150-450 [facility] Comment on above: Performed By: #### L 500.2500, L100.0100 ####[facility] [address] [place], [address] RBC (Bld) [#/Vol] 4.90 10*6/uL Normal 4.2-5.4 [facility] Comment on above: Performed By: #### L 500.2500, L100.0100 ####[facility] [address] [place], [address] RDW SD 39.2 fl Normal 35.1-43.9 [facility] Comment on above: Performed By: #### L 500.2500, L100.0100 ####[facility] [address] [place], [address] WBC (Bld) [#/Vol] 8.5 10*3/uL Normal 4.4-11.0 [facility] Comment on above: Performed By: #### L 500.2500, L100.0100 ####[facility] [address] [place], [address] Bilirubin, totalOrdered By: Dionne Porter on 09-30-2024 Bilirubin [Mass/Vol] 0.27 mg/dL Normal 0.00-1.30 [facility] Comment on above: Performed By: #### L 100.0100, L500.4050 ####[facility] [address] [place], [address] CBC W/Diff, Automatedon Absolute Lymph 0.61 X10 3/uL Low 0.83-4.51 [facility] Comment on above: Performed By: #### L 100.0100, L500.4050 ####[facility] [address] [place], [address] Absolute Neut 6.8 X10 3/uL Normal 2.0-7.7 [facility] Comment on above: Performed By: #### L 100.0100, L500.4050 ####[facility] [address] [place], [address] Basophils/100 WBC (Bld) 0.0 % Normal 0-1 [facility] Comment on above: Performed By: #### L 100.0100, L500.4050 ####[facility] [address] [place], [address] Eosinophils/100 WBC (Bld) 0.0 % Normal 0-5 [facility] Comment on above: Performed By: #### L 100.0100, L500.4050 ####[facility] [address] [place], [address] Erythrocyte distribution width (RBC) [Ratio] 13.0 % Normal 11.6-14.6 [facility] Comment on above: Performed By: #### L 100.0100, L500.4050 ####[facility] [address] [place], [address] Hematocrit (Bld) [Volume fraction] 38.4 % Normal 37-47 [facility] Comment on above: Performed By: #### L 100.0100, L500.4050 ####[facility] [address] [place], [address] Hemoglobin (Bld) [Mass/Vol] 12.6 g/dL Normal 12.0-15.0 [facility] Comment on above: Performed By: #### L 100.0100, L500.4050 ####[facility] [address] [place], [address] IG% 0.400 Normal 0.0-0.9 [facility] Comment on above: Result Comment: IG% - Immature Granulocytes (promyelocytes, myelocytes andmetamyelocytes) > 1% indicates that a LEFT SHIFT is Present. Performed By: #### L 100.0100, L500.4050 ####[facility] [address] [place], [address] Lymphocytes/100 WBC (Bld) 8.0 % Low 19-41 [facility] Comment on above: Performed By: #### L 100.0100, L500.4050 ####[facility] [address] [place], [address] MCH (RBC) [Entitic mass] 27.9 pg Normal 27.0-32.0 [facility] Comment on above: Performed By: #### L 100.0100, L500.4050 ####[facility] [address] [place], [address] MCHC (RBC) [Mass/Vol] 32.8 g/dL Normal 32-36 [facility] Comment on above: Performed By: #### L 100.0100, L500.4050 ####[facility] [address] [place], [address] MCV (RBC) [Entitic vol] 85.0 fL Normal 81-99 [facility] Comment on above: Performed By: #### L 100.0100, L500.4050 ####[facility] [address] [place], [address] Monocytes/100 WBC (Bld) 3.5 % Normal 0-10 [facility] Comment on above: Performed By: #### L 100.0100, L500.4050 ####[facility] [address] [place], [address] Neutrophils/100 WBC (Bld) 88.1 % High 47-70 [facility] Comment on above: Performed By: #### L 100.0100, L500.4050 ####[facility] [address] [place], [address] Nucleated RBC (Bld) [#/Vol] 0 10*3/uL Normal 0-5 [facility] Comment on above: Performed By: #### L 100.0100, L500.4050 ####[facility] [address] [place], [address] Platelet mean volume (Bld) [Entitic vol] 10.0 fL Normal 6.2-12.0 [facility] Comment on above: Performed By: #### L 100.0100, L500.4050 ####[facility] [address] [place], [address] Platelets (Bld) [#/Vol] 177 10*3/uL Normal 150-450 [facility] Comment on above: Performed By: #### L 100.0100, L500.4050 ####[facility] [address] [place], [address] RBC (Bld) [#/Vol] 4.52 10*6/uL Normal 4.2-5.4 [facility] Comment on above: Performed By: #### L 100.0100, L500.4050 ####[facility] [address] [place], [address] RDW SD 39.9 fl Normal 35.1-43.9 [facility] Comment on above: Performed By: #### L 100.0100, L500.4050 ####[facility] [address] [place], [address] WBC (Bld) [#/Vol] 7.7 10*3/uL Normal 4.4-11.0 [facility] Comment on above: Performed By: #### L 100.0100, L500.4050 ####[facility] [address] [place], [address] Comprehensive Metabolic Prof ilon 09-30-2024 ALK PHOS 60 U/L Normal 35-104 [facility] Comment on above: Performed By: #### L 100.0100, L500.4050 ####[facility] [address] [place], [address] BUN/CRE 32.5 RATIO High 10-20 [facility] Comment on above: Performed By: #### L 100.0100, L500.4050 ####[facility] [address] [place], [address] Calcium [Mass/Vol] 9.0 mg/dL Normal 7.6-11.0 [facility] Comment on above: Performed By: #### L 100.0100, L500.4050 ####[facility] [address] [place], [address] Chloride [Moles/Vol] 95 mmol/L Low 98-108 [facility] Comment on above: Performed By: #### L 100.0100, L500.4050 ####[facility] [address] [place], [address] CO2 [Moles/Vol] 33.3 mmol/L High 21.0-32.0 [facility] Comment on above: Performed By: #### L 100.0100, L500.4050 ####[facility] [address] [place], [address] Creatinine [Mass/Vol] 0.58 mg/dL Low 0.70-1.20 [facility] Comment on above: Performed By: #### L 100.0100, L500.4050 ####[facility] [address] [place], [address] ECRCL 65.06 ml/min Normal 50-250 [facility] Comment on above: Performed By: #### L 100.0100, L500.4050 ####[facility] [address] [place], [address] GAP 10 Normal 5-15 [facility] Comment on above: Performed By: #### L 100.0100, L500.4050 ####[facility] [address] [place], [address] GFR/1.73 sq M.predicted among non-blacks MDRD (S/P/Bld) [Vol rate/Area] 98 mL/min/{1.73_m2} Normal >60 [facility] Comment on above: Result Comment: mL/m in/1.73m2 CKD-EPI Creatinine Equation (2020) Performed By: #### L 100.0100, L500.4050 ####[facility] [address] [place], [address] Glucose [Mass/Vol] 127 mg/dL High 70-99 [facility] Comment on above: Performed By: #### L 100.0100, L500.4050 ####[facility] [address] [place], [address] Potassium [Moles/Vol] 4.6 mmol/L Normal 3.3-5.1 [facility] Comment on above: Result Comment: Hemo lysis present, Results??could be affected.?? Performed By: #### L 100.0100, L500.4050 ####[facility] [address] [place], [address] Sodium [Moles/Vol] 138 mmol/L Normal 133-145 [facility] Comment on above: Performed By: #### L 100.0100, L500.4050 ####[facility] [address] [place], [address] T PROT 6.3 g/dL Normal 5.9-8.4 [facility] Comment on above: Performed By: #### L 100.0100, L500.4050 ####[facility] [address] [place], [address] Urea nitrogen [Mass/Vol] 19 mg/dL Normal 4-19 [facility] Comment on above: Performed By: #### L 100.0100, L500.4050 ####[facility] [address] [place], [address] Comprehensive Metabolic Prof ilOrdered By: Dionne Porter on 09-30-2024 AST [Catalytic activity/Vol] 17 U/L Normal <=31 [facility] Comment on above: Hemolysis present, R esults could be affected. Result Comment: Hemo lysis present, Results??could be affected.?? Performed By: #### L 100.0100, L500.4050 ####[facility] [address] [place], [address] No Panel InformationOrdered By: Dionne Porter on 09-30-2024 17 U/L <32 [facility] Serum globulin measurementOr dered By: Dionne Charlotte on 09-30-2024 Globulin (S) [Mass/Vol] 2.5 g/dL Normal 2.2-4.2 [facility] Comment on above: Performed By: #### L 100.0100, L500.4050 ####[facility] [address] [place], [address] Serum or plasma alanine retana otransferase (ALT) measurementOrdered By: Dionne Charlotte on 09-30-2024 ALT [Catalytic activity/Vol] 9 U/L Normal <=34 [facility] Comment on above: Performed By: #### L 100.0100, L500.4050 ####[facility] [address] [place], [address] Serum or plasma albumin kadi urement (mass/volume)Ordered By: Dionne Porter on 09-30-2024 Albumin [Mass/Vol] 3.8 g/dL Normal 3.4-4.8 [facility] Comment on above: Performed By: #### L 100.0100, L500.4050 ####[facility] [address] [place], [address] Serum or plasma albumin/glob ulin mass ratioOrdered By: Dionne Charlotte on 09-30-2024 Albumin/Globulin [Mass ratio] 1.5 {ratio} Normal 0.9-2.4 [facility] Comment on above: Performed By: #### L 100.0100, L500.4050 ####[facility] [address] [place], [address] Serum or plasma alkaline renetta sphatase measurementOrdered By: Dionne Porter on 09-30-2024 ALP [Catalytic activity/Vol] 60 U/L 35-104 [facility] Total proteinOrdered By: Arthur Porter on 09-30-2024 Protein [Mass/Vol] 6.3 g/dL 5.9-8.4 [facility] Absolute lymphocyte countOrd ered By: Riley Jeff on 09-29-2024 Lymphocytes Auto (Unsp spec) [#/Vol] 1.40 10*3/uL 0.83-4.51 [facility] Absolute neutrophil countOrd ered By: Riley Jeff on 09-29-2024 Neutrophils (Bld) [#/Vol] 8.4 10*3/uL High 2.0-7.7 [facility] Anion gap in Serum or Plasma Ordered By: Riley Jeff on 09-29-2024 Anion gap [Moles/Vol] 10 mmol/L 5-15 [facility] Assessment of wrist artery p atency prior to arterial punctureOrdered By: Riley Jeff on 09-29-2024 Arterial patency Wrist artery --pre arterial puncture Positive [facility] Automated lymphocyte count a s percentage of total leukocytesOrdered By: Riley Jeff on 09-29-2024 Lymphocytes/100 WBC Auto (Unsp spec) 13.2 % Low 19-41 [facility] BUN/creatinine ratioOrdered By: Riley Jeff on 09-29-2024 Urea nitrogen/Creatinine [Mass ratio] 25.5 mg/mg High 10-20 [facility] Basic Metabolic Profile (BMP )on 09-29-2024 BUN/CRE 25.5 RATIO High 10-20 [facility] Comment on above: Performed By: #### L 500.2500, L501.5200, L503.7505 ####[facility] [address] [place], [address] Calcium [Mass/Vol] 8.9 mg/dL Normal 7.6-11.0 [facility] Comment on above: Performed By: #### L 500.2500, L501.5200, L503.7505 ####[facility] [address] [place], [address] Chloride [Moles/Vol] 93 mmol/L Low 98-108 [facility] Comment on above: Performed By: #### L 500.2500, L501.5200, L503.7505 ####[facility] [address] [place], [address] CO2 [Moles/Vol] 33.1 mmol/L High 21.0-32.0 [facility] Comment on above: Performed By: #### L 500.2500, L501.5200, L503.7505 ####[facility] [address] [place], [address] Creatinine [Mass/Vol] 0.70 mg/dL Normal 0.70-1.20 [facility] Comment on above: Performed By: #### L 500.2500, L501.5200, L503.7505 ####[facility] [address] [place], [address] ECRCL 64.35 ml/min Normal 50-250 [facility] Comment on above: Performed By: #### L 500.2500, L501.5200, L503.7505 ####[facility] [address] [place], [address] GAP 10 Normal 5-15 [facility] Comment on above: Performed By: #### L 500.2500, L501.5200, L503.7505 ####[facility] [address] [place], [address] GFR/1.73 sq M.predicted among non-blacks MDRD (S/P/Bld) [Vol rate/Area] 94 mL/min/{1.73_m2} Normal >60 [facility] Comment on above: Result Comment: mL/m in/1.73m2 CKD-EPI Creatinine Equation (2020) Performed By: #### L 500.2500, L501.5200, L503.7505 ####[facility] [address] [place], [address] Glucose [Mass/Vol] 129 mg/dL High 70-99 [facility] Comment on above: Performed By: #### L 500.2500, L501.5200, L503.7505 ####[facility] [address] [place], [address] Potassium [Moles/Vol] 4.4 mmol/L Normal 3.3-5.1 [facility] Comment on above: Performed By: #### L 500.2500, L501.5200, L503.7505 ####[facility] [address] [place], [address] Sodium [Moles/Vol] 136 mmol/L Normal 133-145 [facility] Comment on above: Performed By: #### L 500.2500, L501.5200, L503.7505 ####[facility] [address] [place], [address] Urea nitrogen [Mass/Vol] 18 mg/dL Normal 4-19 [facility] Comment on above: Performed By: #### L 500.2500, L501.5200, L503.7505 ####[facility] [address] [place], [address] Basophil percentageOrdered B y: Riley Jeff on 09-29-2024 Basophils/100 WBC (Bld) 0.2 % 0-1 [facility] Blood Gases by CPSon 025 CHAO TEST Positive Normal [facility] Comment on above: Performed By: #### L 9000.0800 ####[facility] [address] [place], [address] Base excess Calc (Bld) [Moles/Vol] 19 mmol/L High -2 to +2 [facility] Comment on above: Performed By: #### L 9000.0800 ####[facility] [address] [place], [address] Blood Gas Type ART Normal [facility] Comment on above: Performed By: #### L 9000.0800 ####[facility] [address] [place], [address] CO2 [Moles/Vol] 47 mmol/L Normal [facility] Comment on above: Performed By: #### L 9000.0800 ####[facility] [address] [place], [address] FI02 3.0 Normal [facility] Comment on above: Performed By: #### L 9000.0800 ####[facility] [address] [place], [address] HCO3 (Bld) [Moles/Vol] 44.5 mmol/L High 22-26 [facility] Comment on above: Performed By: #### L 9000.0800 ####[facility] [address] [place], [address] Mode Not entered Normal [facility] Comment on above: Performed By: #### L 9000.0800 ####[facility] [address] [place], [address] O2 Delivery Dev Cannula Normal [facility] Comment on above: Performed By: #### L 9000.0800 ####[facility] [address] [place], [address] pCO2 79.5 mmHg Invalid Interpretation Code 35-45 [facility] Comment on above: Performed By: #### L 9000.0800 ####[facility] [address] [place], [address] pH (Bld) 7.36 [pH] Normal 7.35-7.45 [facility] Comment on above: Performed By: #### L 9000.0800 ####[facility] [address] [place], [address] PO2 83 mmHG Normal 75-100 [facility] Comment on above: Performed By: #### L 9000.0800 ####[facility] [address] [place], [address] Read Back By Yes Normal [facility] Comment on above: Performed By: #### L 9000.0800 ####[facility] [address] [place], [address] Results To [facility] Comment on above: Performed By: #### L 9000.0800 ####[facility] [address] [place], [address] SITE L Radial Normal [facility] Comment on above: Performed By: #### L 9000.0800 ####[facility] [address] [place], [address] SO2 95 Normal 95-99 [facility] Comment on above: Performed By: #### L 9000.0800 ####[facility] [address] [place], [address] Time Given 04:48:18 Normal [facility] Comment on above: Performed By: #### L 9000.0800 ####[facility] [address] [place], [address] Blood base excess determinat ionOrdered By: Riley Jeff on 09-29-2024 Base excess Calc (BldV) [Moles/Vol] 19 mmol/L High -2-2 [facility] Blood bicarbonate measuremen tOrdered By: Riley Jeff on 09-29-2024 HCO3 (Bld) [Moles/Vol] 44.5 mmol/L High 22-26 [facility] CBC W/Diff, Automatedon 06-0 Absolute Lymph 1.40 X10 3/uL Normal 0.83-4.51 [facility] Comment on above: Performed By: #### L 100.0100 ####[facility] [address] [place], [address] Absolute Neut 8.4 X10 3/uL High 2.0-7.7 [facility] Comment on above: Performed By: #### L 100.0100 ####[facility] [address] [place], [address] Basophils/100 WBC (Bld) 0.2 % Normal 0-1 [facility] Comment on above: Performed By: #### L 100.0100 ####[facility] [address] [place], [address] Eosinophils/100 WBC (Bld) 0.7 % Normal 0-5 [facility] Comment on above: Performed By: #### L 100.0100 ####[facility] [address] [place], [address] Erythrocyte distribution width (RBC) [Ratio] 13.1 % Normal 11.6-14.6 [facility] Comment on above: Performed By: #### L 100.0100 ####[facility] [address] [place], [address] Hematocrit (Bld) [Volume fraction] 41.7 % Normal 37-47 [facility] Comment on above: Performed By: #### L 100.0100 ####[facility] [address] [place], [address] Hemoglobin (Bld) [Mass/Vol] 13.6 g/dL Normal 12.0-15.0 [facility] Comment on above: Performed By: #### L 100.0100 ####[facility] [address] [place], [address] IG% 0.500 Normal 0.0-0.9 [facility] Comment on above: Result Comment: IG% - Immature Granulocytes (promyelocytes, myelocytes andmetamyelocytes) > 1% indicates that a LEFT SHIFT is Present. Performed By: #### L 100.0100 ####[facility] [address] [place], [address] Lymphocytes/100 WBC (Bld) 13.2 % Low 19-41 [facility] Comment on above: Performed By: #### L 100.0100 ####[facility] [address] [place], [address] MCH (RBC) [Entitic mass] 27.9 pg Normal 27.0-32.0 [facility] Comment on above: Performed By: #### L 100.0100 ####[facility] [address] [place], [address] MCHC (RBC) [Mass/Vol] 32.6 g/dL Normal 32-36 [facility] Comment on above: Performed By: #### L 100.0100 ####[facility] [address] [place], [address] MCV (RBC) [Entitic vol] 85.5 fL Normal 81-99 [facility] Comment on above: Performed By: #### L 100.0100 ####[facility] [address] [place], [address] Monocytes/100 WBC (Bld) 6.9 % Normal 0-10 [facility] Comment on above: Performed By: #### L 100.0100 ####[facility] [address] [place], [address] Neutrophils/100 WBC (Bld) 78.5 % High 47-70 [facility] Comment on above: Performed By: #### L 100.0100 ####[facility] [address] [place], [address] Nucleated RBC (Bld) [#/Vol] 0 10*3/uL Normal 0-5 [facility] Comment on above: Performed By: #### L 100.0100 ####[facility] [address] [place], [address] Platelet mean volume (Bld) [Entitic vol] 9.7 fL Normal 6.2-12.0 [facility] Comment on above: Performed By: #### L 100.0100 ####[facility] [address] [place], [address] Platelets (Bld) [#/Vol] 198 10*3/uL Normal 150-450 [facility] Comment on above: Performed By: #### L 100.0100 ####[facility] [address] [place], [address] RBC (Bld) [#/Vol] 4.88 10*6/uL Normal 4.2-5.4 [facility] Comment on above: Performed By: #### L 100.0100 ####[facility] [address] [place], [address] RDW SD 40.6 fl Normal 35.1-43.9 [facility] Comment on above: Performed By: #### L 100.0100 ####[facility] [address] [place], [address] WBC (Bld) [#/Vol] 10.6 10*3/uL Normal 4.4-11.0 [facility] Comment on above: Performed By: #### L 100.0100 ####[facility] [address] [place], [address] Carbon dioxide, total [Moles /volume] in Central venous bloodOrdered By: Riley Jeff on 09-29-2024 CO2 [Moles/Vol] 33.1 mmol/L High 21.0-32.0 [facility] Chest PA and Lateralon 09-29 Chest PA and Lateral Normal [facility] Chloride assayOrdered By: Silvia Jeff on 09-29-2024 Chloride [Moles/Vol] 93 mmol/L Low 98-108 [facility] Emergency Department Summary on 09-29-2024 Emergency Department Summary Normal [facility] Eosinophil percentageOrdered By: Riley Jeff on 09-29-2024 Eosinophils/100 WBC (Bld) 0.7 % 0-5 [facility] Erythrocyte distribution wid th ratioOrdered By: Riley Jeff on 09-29-2024 Erythrocyte distribution width (RBC) [Ratio] 13.1 % 11.6-14.6 [facility] Erythrocyte distribution wid th standard deviationOrdered By: Riley Jeff on 09-29-2024 Erythrocyte distribution width (RBC) [Ratio] 40.6 fl 35.1-43.9 [facility] Glomerular filtration rate ( GFR) estimation/1.73 sq m using serum, plasma, or whole bOrdered By: Riley Jeff on 09-29-2024 GFR/1.73 sq M.predicted among non-blacks MDRD (S/P/Bld) [Vol rate/Area] 94 mL/min/{1.73_m2} >60 [facility] Comment on above: mL/min/1.73m2 CKD-EP I Creatinine Equation (2020) Gram stainOrdered By: Dionne Porter on 09-29-2024 Microscopic observation Gram stain Nom (Unsp spec) [facility] H AND P Exam - Hospital[place] 09-29-2024 H&P Exam - Hospitalist [facility] Hematocrit Auto (Bld) [Volum e fraction]Ordered By: Riley Jeff on 09-29-2024 Hematocrit (Bld) [Volume fraction] 41.7 % 37-47 [facility] Hemoglobin measurementOrdere d By: Riley Jeff on 09-29-2024 Hemoglobin (Bld) [Mass/Vol] 13.6 g/dL 12.0-15.0 [facility] Immature granulocytes/100 WB C Auto (Bld)Ordered By: Riley Jeff on 09-29-2024 Immature granulocytes/100 WBC (Bld) 0.500 % 0.0-0.9 [facility] Comment on above: IG% - Immature Granu locytes (promyelocytes, myelocytes and metamyelocytes) > 1% indicates that a LEFT SHIFT is Present. Influenza virus A and B and SARS-CoV-2 (COVID-19) and Respiratory syncytial virus RNAOrdered By: Riley Jeff on 09-29-2024 SARS-CoV-2 (COVID-19) RNA ASPEN+probe Ql (Unsp spec) [facility] L503.7505on 09-29-2024 Natriuretic peptide B (Bld) [Mass/Vol] 518 pg/mL Normal <=900 [facility] Comment on above: Result Comment: Hear t Failure Unlikely: < 300 pg/mLHeart Failure Likely< 50 Years: > 450 pg/mL50-75 Years: > 900 pg/mL>75 Years: > 1800 pg/mL Performed By: #### L 500.2500, L501.5200, L503.7505 ####[facility] [address] [place], [address] L509.7001on 09-29-2024 Procalcitonin 0.04 ng/mL Normal <=0.10 [facility] Comment on above: Result Comment: Inte rpretation:<0.10-0.25 ng/mL: Antibiotic therapy discouraged. Bacterialinfection unlikely.0.25-0.50 ng/mL: Antibiotic therapy encouraged. Bacterialinfection possible.>0.50 ng/mL: Antibiotic therapy strongly encouraged.Suggestive of presence of bacterial infection.PCT should always be interpreted in the clinical context ofthe patient. Therefore, clinicians should use the PCTresults in conjunction with other laboratory findings andclinical signs of the patient. Performed By: #### L 509.7001 ####[facility] [address] [place], [address] M100.678on 09-29-2024 M100.678 Pending SARS-CoV-2 (COVID 19) Negative INFLUENZA A Negative INFLUENZA B Negative RSV PCR Negative Normal [facility] Comment on above: Performed By: #### M 100.678 ####[facility] [address] [place], [address] MCV (mean corpuscular volume ) determinationOrdered By: Riley Jeff on 09-29-2024 MCV (RBC) [Entitic vol] 85.5 fL 81-99 [facility] Magnesiumon 09-29-2024 Magnesium [Mass/Vol] 2.0 mg/dL Normal 1.5-2.2 [facility] Comment on above: Performed By: #### L 500.2500, L501.5200, L503.7505 ####[facility] [address] [place], [address] Magnesium measurement (mass/ volume)Ordered By: Riley Jeff on 09-29-2024 Magnesium (Unsp spec) [Mass/Vol] 2.0 mg/dL 1.5-2.2 [facility] Mean corpuscular hemoglobin (MCH) determinationOrdered By: Riley Jeff on 09-29-2024 MCH (RBC) [Entitic mass] 27.9 pg 27.0-32.0 [facility] Mean corpuscular hemoglobin concentration (MCHC) determinationOrdered By: Riley Jeff on 09-29-2024 MCHC (RBC) [Mass/Vol] 32.6 g/dL 32-36 [facility] Mean platelet volume determi nationOrdered By: Riley Jeff on 09-29-2024 Platelet mean volume (Bld) [Entitic vol] 9.7 fL 6.2-12.0 [facility] Measurement, pHOrdered By: Duncan Jeff on 09-29-2024 pH (Unsp spec) 7.36 [pH] 7.35-7.45 [facility] Microbial respiratory cultur eOrdered By: Dionne Porter on 09-29-2024 Microorganism identified Cx Nom (Unsp spec) Stenotrophomonas maltophilia Abnormal [facility] Microorganism identified Cx Nom (Unsp spec) Pseudomonas aeruginosa Abnormal [facility] Monocyte percentageOrdered B y: Riley Jeff on 09-29-2024 Monocytes/100 WBC (Bld) 6.9 % 0-10 [facility] Natriuretic peptide.B prohor sharee N-Terminal [Mass/volume] in Serum or PlasmaOrdered By: Riley Jeff on 09-29-2024 Natriuretic peptide.B prohormone N-Terminal [Mass/Vol] 518 pg/mL <900 [facility] Comment on above: Heart Failure Unlike ly: < 300 pg/mLHeart Failure Likely< 50 Years: > 450 pg/mL50-75 Years: > 900 pg/mL>75 Years: > 1800 pg/mL Neutrophil percentageOrdered By: Riley Jeff on 09-29-2024 Neutrophils/100 WBC (Bld) 78.5 % High 47-70 [facility] No Panel InformationOrdered By: Riley Jeff on 09-29-2024 Bld Gas Crit Called To/Read Back By Yes [facility] Blood Gas Notified Time 04:48:18 [facility] Blood Gas Notified Whom Andes [facility] Blood Gas Sample Site L Radial [facility] Blood Gas Specimen Type ART [facility] Blood Gas Vent Mode Not entered [facility] Oxygen Delivery Device [facility] ART [facility] L Radial [facility] Not entered [facility] Cannula [facility] 04:48:18 [facility] Andes [facility] Yes [facility] Nucleated red blood cell per centageOrdered By: Riley Jeff on 09-29-2024 Nucleated RBC/100 WBC (Bld) [Ratio] 0 % 0-5 [facility] Platelet countOrdered By: Silvia Jeff on 09-29-2024 Platelets (Bld) [#/Vol] 198 10*3/uL 150-450 [facility] Potassium measurement (mass/ volume)Ordered By: Riley Jeff on 09-29-2024 Potassium (Unsp spec) [Mass/Vol] 4.4 mmol/L 3.3-5.1 [facility] Procalcitonin [Mass/volume] in Serum or Plasma by ImmunoassayOrdered By: Dionne Porter on 09-29-2024 Procalcitonin IA [Mass/Vol] 0.04 ng/mL <0.11 [facility] Comment on above: Interpretation:<0.10 -0.25 ng/mL: [...] 09-29-2024 RBC (Bld) [#/Vol] 4.88 10*6/uL 4.2-5.4 [facility] RESPIRATORY PANEL MOLECULARo n 09-29-2024 RP PANEL Normal [facility] Comment on above: Performed By: #### M 100.638 ####[facility] [address] [place], [place], [id number] Respiratory pathogens detect ion panel by molecular detection methodOrdered By: Dionne Porter on 09-29-2024 Respiratory pathogens DNA and RNA panel ASPEN+probe (Resp) [facility] Serum creatinine measurement (mass/volume)Ordered By: Riley Jeff on 09-29-2024 Creatinine [Mass/Vol] 0.70 mg/dL 0.70-1.20 [facility] Serum glucose measurement (m ass/volume)Ordered By: Riley Jeff on 09-29-2024 Glucose [Mass/Vol] 129 mg/dL High 70-99 [facility] Serum or plasma calcium kadi urement (mass/volume)Ordered By: Riley Jeff on 09-29-2024 Calcium [Mass/Vol] 8.9 mg/dL 7.6-11.0 [facility] Serum or plasma urea nitroge n measurement (mass/volume)Ordered By: Riley Jeff on 09-29-2024 Urea nitrogen [Mass/Vol] 18 mg/dL 4-19 [facility] Sodium levelOrdered By: Brennen Jeff on 09-29-2024 Sodium [Moles/Vol] 136 mmol/L 133-145 [facility] Total carbon dioxide measure mentOrdered By: Riley Jeff on 09-29-2024 CO2 [Moles/Vol] 47 mmol/L [facility] White blood cell (WBC) count Ordered By: Riley Jeff on 09-29-2024 WBC (Bld) [#/Vol] 10.6 10*3/uL 4.4-11.0 [facility] CNPNon 07-24-2024 CNPN Telephone (FAMPWS) DENIA [id number]) 1955 F Date Time Provider Department 07/24/24 YOSEPH FALL During your visit today, we recorded the following information about you: Magalie Anguiano RN 07/24/2024 4:33 PM Signed Pts [...] rash. He states the Pt has a net wpf developer that come in tomorrow and she could [...] providers results and instructions. He voices understanding. Magalie Anguiano RN Allergies As of Date: 07/24/2024 (No Known Allergies) Date Reviewed: 07/06/2024 Reviewed by: Martha Baca MA - Fully Assessed Reason for [...] directed. Dx: COPD J44.9 - Nebulizer Accessories [facility] Mask and supplies as needed - PULSE OXIMETER [facility] Use as directed to check oxygen saturation level - ammonium lactate (AMLACTIN) 12 % lotion Apply 1 application to affected area as needed for Dry Skin. - losartan (COZAAR) 50 mg tablet Take 0.5 tablets by mouth once daily. - OXYGEN, HOME THERAPY, 2.5 L/min by Nasal Cannula route continuous. Use as directred - Disposable Gloves (DISPOSABLE LATEX-FREE GLOVES) [facility] 1 Box once every month. ICD 10: [...] classification (HC (more content not included)... [facility] DEN[facility]ON[facility]ALE[facility] ([id number]) 1955 F Date Time Provider Department 07/12/24 [facility] FALL [facility] During your visit today, we recorded the following information about you: Sukhi Marrero, RN 07/12/2024 2:51 PM [facility] calls to request chart notes to support patients need for continued oxygen. Most recent visits have all been [facility]. Jenni requests most recent visit be faxed. Faxed to [phone] per request. Sukhi Marrero RN Allergies As of Date: 07/12/2024 (No Known Allergies) Date Reviewed: 07/06/2024 Reviewed by: Martha Baca MA - Fully Assessed Reason for [...] directed. Dx: COPD J44.9 - Nebulizer Accessories [facility] Mask and supplies as needed - PULSE OXIMETER [facility] Use as directed to check oxygen saturation level - ammonium lactate (AMLACTIN) 12 % lotion Apply 1 application to affected area as needed for Dry Skin. - losartan (COZAAR) 50 mg tablet Take 0.5 tablets by mouth once daily. - OXYGEN, HOME THERAPY, 2.5 L/min by Nasal Cannula route continuous. Use as directred - Disposable Gloves (DISPOSABLE LATEX-FREE GLOVES) [facility] 1 Box once every month. ICD 10: [...] Encounter Status:Closed by SUKHI MARRERO on 07/12/24 [facility] 06-12-2024 [facility] DEN[facility] GONZALEZ ([id number]) 1955 F Date Time Provider Department 06/12/24 YOSEPH FALL [facility] During your visit today, we recorded the following information about you: Martha Baca MA 06/12/2024 12:44 PM Signed Type of form: Medical Necessity for incontinence supplies. Form received via fax When form is completed, Fax form to [phone] Form has been forwarded to Physician Desk: JOS Drew Rilee, MA 06/12/2024 3:42 PM Signed Form completed and faxed back to information below. Martha Baca MA Allergies As of Date: 06/12/2024 (No Known Allergies) Date Reviewed: 04/07/2024 Reviewed by: Martha Baca MA - Fully Assessed Reason for [...] directed. Dx: COPD J44.9 - Nebulizer Accessories [facility] Mask and supplies as needed - PULSE OXIMETER [facility] Use as directed to check oxygen saturation level - ammonium lactate (AMLACTIN) 12 % lotion Apply 1 application to affected area as needed for Dry Skin. - losartan (COZAAR) 50 mg tablet Take 0.5 tablets by mouth once daily. - OXYGEN, HOME THERAPY, 2.5 L/min by Nasal Cannula route continuous. Use as directred - Disposable Gloves (DISPOSABLE LATEX-FREE GLOVES) [facility] 1 Box once every month. ICD 10: [...] chronic bronchitis with exacerbatio* Encounter Status:Closed by MARTHA BACA on 06/12/24 [facility] (INTMWS) DENIA GONZALEZ ([id number]) 1955 F Date Time Provider Department 06/02/24 YOSEPH FALL IN[facility]WS During your visit today, we recorded the following information about you: Ban Villafana LPN 06/02/2024 8:13 AM Signed Electronic PA rec'd and completed for cyclobenzaprine. This was denied. Note from payer: CaseId:[id number];Statu s:Denied;Review Type:Prior Auth;Appeal Information: Attention:ATTN: MEDICARE [employer] [address] [address],[place], [place],[address] WebAddress:[email or web address]; Important - Please read the below note [...] for a decision on the appeal.; Payer: [employer] [phone] Electronic appeal: Supported View History Notes Time [...] to its destination. To be filled at: [facility] [address] [place] [id number] [address] [facility] - [phone] Allergies As of Date: 06/02/2024 (No Known Allergies) Date Reviewed: 04/07/2024 Reviewed by: Martha Baca MA - Fully Assessed Reason for [...] directed. Dx: COPD J44.9 - Nebulizer Accessories [facility] Mask and supplies as needed - PULSE OXIMETER [facility] Use as directed to check oxygen saturation level - ammonium lactate (AMLACTIN) 12 % lotion Apply 1 application to affected area as needed for Dry Skin. - losartan (COZAAR) 50 mg tablet Take 0.5 tablets by mouth once daily. - OXYGEN, HOME THERAPY, 2.5 L/min by Nasal Cannula route continuous. Use as directred - Disposable Gloves (DISPOSABLE LATEX-FREE GLOVES) [facility] 1 Box once every month. ICD 10: [...] Noted Reso (more content not included)... [facility] CNPN Telephone (FAMWS) DENIA GONZALEZ ([id number]) 1955 F Date Time Provider Department 03/21/24 YOSEPH FALL [facility] During your visit today, we recorded [...] Please review and advise, KAREN Werner Ashley, APRN.[facility] 03/22/2024 8:51 AM Signed The following [...] Known Allergies) Date Reviewed: 11/29/2023 Reviewed by: Martha Baca MA - Fully Assessed Reason for Visit: Patient Question [0127] Primary Visit Diagnosis:Oral infection [K12.2] Order(s):amoxicillin (AMOXIL) [...] directed. Dx: COPD J44.9 - Nebulizer Accessories [facility] Mask and supplies as needed - PULSE OXIMETER [facility] Use as directed to check oxygen saturation level - ammonium lactate (AMLACTIN) 12 % lotion Apply 1 application to affected area as needed for Dry Skin. - losartan (COZAAR) 50 mg tablet Take 0.5 tablets by mouth once daily. - OXYGEN, HOME THERAPY, 2.5 L/min by Nasal Cannula route continuous. Use as directred - Disposable Gloves (DISPOSABLE LATEX-FREE GLOVES) [facility] 1 Box once every month. ICD 10: [...] PAP S (more content not included)... Normal [facility] [place] 02-03-2024 [place] Tele[place] (FAMPWS) DENIA GONZALEZ ([id number]) 1955 F Date Time Provider Department 02/03/24 YOSEPH FALL FAMPWS During your visit today, [...] Known Allergies) Date Reviewed: 11/29/2023 Reviewed by: Martha Baca MA - Fully Assessed Reason for Visit: Patient Question [1297] Order(s):amoxicillin (AMOXIL) 875 mg tabletTake 1 tablet [...] directed. Dx: COPD J44.9 - Nebulizer Accessories [facility] Mask and supplies as needed - PULSE OXIMETER [facility] Use as directed to check oxygen saturation level - ammonium lactate (AMLACTIN) 12 % lotion Apply 1 application to affected area as needed for Dry Skin. - losartan (COZAAR) 50 mg tablet Take 0.5 tablets by mouth once daily. - OXYGEN, HOME THERAPY, 2.5 L/min by Nasal Cannula route continuous. Use as directred - Disposable Gloves (DISPOSABLE LATEX-FREE GLOVES) [facility] 1 Box once every month. ICD 10: [...] [K59.00] 06/21/2016 (more content not included)... [facility] DENIA GONZALEZ ([id number]) 1955 F Date Time Provider Department 02/03[facility] During your visit today, we recorded the following information about you: Martínez Louie, RN 02/03/2024 1:25 PM Signed Daughter reports [...] EC for evaluation. Patient and daughter agreeable. Allergies As of Date: 02/03/2024 (No Known Allergies) Date Reviewed: 11/29/2023 Reviewed by: Martha Baca MA - Fully Assessed Reason for [...] directed. Dx: COPD J44.9 - Nebulizer Accessories [facility] Mask and supplies as needed - PULSE OXIMETER [facility] Use as directed to check oxygen saturation level - ammonium lactate (AMLACTIN) 12 % lotion Apply 1 application to affected area as needed for Dry Skin. - losartan (COZAAR) 50 mg tablet Take 0.5 tablets by mouth once daily. - OXYGEN, HOME THERAPY, 2.5 L/min by Nasal Cannula route continuous. Use as directred - Disposable Gloves (DISPOSABLE LATEX-FREE GLOVES) [facility] 1 Box once every month. ICD 10: [...] Encounter Status:Closed by Martínez LOUIE on 02/03/24 Normal [facility] Absolute lymphocyte countOrd ered By: Jan Bolanos on 07-21-2023 Lymphocytes Auto (Unsp spec) [#/Vol] 0.61 10*3/uL 0.83-4.51 [facility] Automated lymphocyte count a s percentage of total leukocytesOrdered By: Jan Bolanos on 07-21-2023 Lymphocytes/100 WBC Auto (Unsp spec) 8.8 % 19-41 [facility] Basophil percentageOrdered B y: Jan Bolanos on 07-21-2023 Basophils/100 WBC (Bld) 0.0 % 0-1 [facility] Chloride [Moles/Vol] 107 mmol/L 98-107 [facility] Eosinophils/100 WBC (Bld) 0.0 % 0-5 [facility] Glucose [Mass/Vol] 140 mg/dL 74-106 [facility] Comment on above: Fasting Glucose resu lt greater than or equal to 126 mg/dL suggests DIABETES MELLITUS per A.D.A. criteria. Hemoglobin (Bld) [Mass/Vol] 12.0 g/dL 12.0-15.0 [facility] Monocytes/100 WBC (Bld) 2.7 % 0-10 [facility] Neutrophils (Bld) [#/Vol] 6.1 10*3/uL 2.0-7.7 [facility] Neutrophils/100 WBC (Bld) 88.1 % 47-70 [facility] Potassium [Moles/Vol] 4.1 mmol/L 3.5-5.1 [facility] Sodium [Moles/Vol] 140 mmol/L 136-145 [facility] WBC (Bld) [#/Vol] 6.9 10*3/uL 4.4-11.0 [facility] Determination of erythrocyte mean corpuscular volume (MCV)Ordered By: Jan Bolanos on 07-21-2023 MCV (RBC) [Entitic vol] 82.7 fL 81-99 [facility] Erythrocyte distribution wid th ratioOrdered By: Jan Bolanos on 07-21-2023 Erythrocyte distribution width (RBC) [Ratio] 13.4 % 11.6-14.6 [facility] Erythrocyte distribution wid th standard deviationOrdered By: Jan Bolanos on 07-21-2023 Erythrocyte distribution width (RBC) [Entitic vol] 40.3 fL 35.1-43.9 [facility] Gram stain for investigation of transfusion reactionOrdered By: Jan Bolanos on 07-21-2023 Microscopic observation Gram stain Nom (Unsp spec) [facility] Hematocrit Auto (Bld) [Volum e fraction]Ordered By: Jan Bolanos on 07-21-2023 Hematocrit (Bld) [Volume fraction] 37.4 % 37-47 [facility] Immature granulocytes/100 WB C Auto (Bld)Ordered By: Jan Bolanos on 07-21-2023 Immature granulocytes/100 WBC (Bld) 0.400 % 0.0-0.9 [facility] Comment on above: IG% - Immature Granu locytes (promyelocytes, myelocytes and metamyelocytes) > 1% indicates that a LEFT SHIFT is Present. Laboratory - Chemistry and C hemistry - challengeOrdered By: Jan Bolanos on 07-21-2023 CO2 [Moles/Vol] 30.0 mmol/L 21.0-32.0 [facility] Urea nitrogen/Creatinine [Mass ratio] 27.8 mg/mg 10-20 [facility] Laboratory - Hematology and Cell countsOrdered By: Jna Bolanos on 07-21-2023 MCH (RBC) [Entitic mass] 26.5 pg 27.0-32.0 [facility] MCHC (RBC) [Mass/Vol] 32.1 g/dL 32-36 [facility] Nucleated RBC/100 WBC (Bld) [Ratio] 0 % 0-5 [facility] Platelet mean volume (Bld) [Entitic vol] 9.9 fL 6.2-12.0 [facility] Platelets (Bld) [#/Vol] 210 10*3/uL 150-450 [facility] No Panel InformationOrdered By: Jan Bolanos on 07-21-2023 Estimated Creatinine Clearance Calc 64.83 ml/min [facility] Estimated GFR (MDRD) Amer 170 mL/min >60 [facility] Comment on above: GFR Calc Estimated GFR (MDRD) Non-Af Amer 141 mL/min >60 [facility] Comment on above: Non- GFR Calc RBC Auto (Bld) [#/Vol]Ordere d By: Jan Bolanos on 07-21-2023 RBC (Bld) [#/Vol] 4.52 10*6/uL 4.2-5.4 [facility] Serum or plasma calcium kadi urement (mass/volume)Ordered By: Jan Bolanos on 07-21-2023 Calcium [Mass/Vol] 8.6 mg/dL 8.5-10.1 [facility] Serum or plasma creatinine m easurement (mass/volume)Ordered By: Jan Bolanos on 07-21-2023 Creatinine [Mass/Vol] 0.47 mg/dL 0.55-1.02 [facility] Comment on above: The validity of the calculated GFR & GFRAA in patients over 70 years has not been determined. Clinical correlation is essential. Serum or plasma urea nitroge n measurement (mass/volume)Ordered By: Jan Bolanos on 07-21-2023 Urea nitrogen [Mass/Vol] 13 mg/dL 7-18 [facility] Thin prep Papanicolaou smear with manual screeningOrdered By: Jan Bolanos on 07-21-2023 Thin prep Papanicolaou smear with manual screening 3 5-15 [facility] Absolute lymphocyte countOrd ered By: Dallas Mena on 07-20-2023 Lymphocytes Auto (Unsp spec) [#/Vol] 2.11 10*3/uL 0.83-4.51 [facility] Automated lymphocyte count a s percentage of total leukocytesOrdered By: Dallas Mena on 07-20-2023 Lymphocytes/100 WBC Auto (Unsp spec) 23.7 % 19-41 [facility] Basophil percentageOrdered B y: José Smith on 07-20-2023 Basophil percentage 2.4 mg/dL 2.5-4.9 [facility] Bilirubin [Mass/Vol] 0.40 mg/dL 0.20-1.00 [facility] Comment on above: For patients on eltr ombopag therapy, use of Dimension [place] TBIL is not recommended. Protein [Mass/Vol] 7.4 g/dL 6.4-8.2 [facility] Basophil percentageOrdered B y: Dallas Mena on 07-20-2023 Basophils/100 WBC (Bld) 0.3 % 0-1 [facility] Chloride [Moles/Vol] 101 mmol/L 98-107 [facility] Eosinophils/100 WBC (Bld) 0.6 % 0-5 [facility] Glucose [Mass/Vol] 129 mg/dL 74-106 [facility] Comment on above: Fasting Glucose resu lt greater than or equal to 126 mg/dL suggests DIABETES MELLITUS per A.D.A. criteria. Hemoglobin (Bld) [Mass/Vol] 14.1 g/dL 12.0-15.0 [facility] Monocytes/100 WBC (Bld) 7.6 % 0-10 [facility] Neutrophils (Bld) [#/Vol] 6.0 10*3/uL 2.0-7.7 [facility] Neutrophils/100 WBC (Bld) 67.5 % 47-70 [facility] Potassium [Moles/Vol] 3.8 mmol/L 3.5-5.1 [facility] Sodium [Moles/Vol] 139 mmol/L 136-145 [facility] WBC (Bld) [#/Vol] 8.9 10*3/uL 4.4-11.0 [facility] Determination of erythrocyte mean corpuscular volume (MCV)Ordered By: Dallas Mena on 07-20-2023 MCV (RBC) [Entitic vol] 82.8 fL 81-99 [facility] Erythrocyte distribution wid th ratioOrdered By: Dallas Mena on 07-20-2023 Erythrocyte distribution width (RBC) [Ratio] 13.6 % 11.6-14.6 [facility] Erythrocyte distribution wid th standard deviationOrdered By: Dallas Mena on 07-20-2023 Erythrocyte distribution width (RBC) [Entitic vol] 41.0 fL 35.1-43.9 [facility] Hematocrit Auto (Bld) [Volum e fraction]Ordered By: Dallas Mena on 07-20-2023 Hematocrit (Bld) [Volume fraction] 44.2 % 37-47 [facility] Immature granulocytes/100 WB C Auto (Bld)Ordered By: Dallas Mena on 07-20-2023 Immature granulocytes/100 WBC (Bld) 0.300 % 0.0-0.9 [facility] Comment on above: IG% - Immature Granu locytes (promyelocytes, myelocytes and metamyelocytes) > 1% indicates that a LEFT SHIFT is Present. Laboratory - Chemistry and C hemistry - challengeOrdered By: José Smith on 07-20-2023 Albumin/Globulin [Mass ratio] 0.8 {ratio} 0.9-2.4 [facility] ALP [Catalytic activity/Vol] 72 U/L 45-117 [facility] ALT [Catalytic activity/Vol] 15 U/L 13-56 [facility] Globulin (S) [Mass/Vol] 4.0 g/dL 2.2-4.2 [facility] Magnesium [Mass/Vol] 2.1 mg/dL 1.6-2.6 [facility] Laboratory - Chemistry and C hemistry - challengeOrdered By: Dallas Mena on 07-20-2023 CO2 [Moles/Vol] 33.0 mmol/L 21.0-32.0 [facility] Urea nitrogen/Creatinine [Mass ratio] 18.7 mg/mg 10-20 [facility] Laboratory - Hematology and Cell countsOrdered By: Dallas Mena on 07-20-2023 MCH (RBC) [Entitic mass] 26.4 pg 27.0-32.0 [facility] MCHC (RBC) [Mass/Vol] 31.9 g/dL 32-36 [facility] Nucleated RBC/100 WBC (Bld) [Ratio] 0 % 0-5 [facility] Platelet mean volume (Bld) [Entitic vol] 9.9 fL 6.2-12.0 [facility] Platelets (Bld) [#/Vol] 233 10*3/uL 150-450 [facility] Laboratory - Microbiology an d Antimicrobial susceptibilityOrdered By: Dallas Mena on 07-20-2023 SARS-CoV-2 (COVID-19) RNA ASPEN+probe Ql (Unsp spec) [facility] No Panel InformationOrdered By: Dallas Mena on 07-20-2023 Estimated Creatinine Clearance Calc 65.47 ml/min [facility] Estimated GFR (MDRD) Amer 108 mL/min >60 [facility] Comment on above: GFR Calc Estimated GFR (MDRD) Non-Af Amer 89 mL/min >60 [facility] Comment on above: Non- GFR Calc RBC Auto (Bld) [#/Vol]Ordere d By: Dallas Mena on 07-20-2023 RBC (Bld) [#/Vol] 5.34 10*6/uL 4.2-5.4 [facility] Serum or plasma calcium kadi urement (mass/volume)Ordered By: Dallas Mena on 07-20-2023 Calcium [Mass/Vol] 8.8 mg/dL 8.5-10.1 [facility] Serum or plasma creatinine m easurement (mass/volume)Ordered By: Dallas Mena on 07-20-2023 Creatinine [Mass/Vol] 0.70 mg/dL 0.55-1.02 [facility] Comment on above: The validity of the calculated GFR & GFRAA in patients over 70 years has not been determined. Clinical correlation is essential. Serum or plasma thyroid stim ulating hormone (TSH) measurement (units/volume)Ordered By: José Smith on 07-20-2023 TSH Qn 0.35 uIU/mL 0.358-3.74 [facility] Serum or plasma urea nitroge n measurement (mass/volume)Ordered By: Dallas Mena on 07-20-2023 Urea nitrogen [Mass/Vol] 13 mg/dL 7-18 [facility] Thin prep Papanicolaou smear with manual screeningOrdered By: José Smith on 07-20-2023 Thin prep Papanicolaou smear with manual screening 3.4 g/dL 3.2-5.0 [facility] Thin prep Papanicolaou smear with manual screening 13 U/L 15-37 [facility] Thin prep Papanicolaou smear with manual screeningOrdered By: Dallas Mena on 07-20-2023 Thin prep Papanicolaou smear with manual screening 5 5-15 [facility] FECAL OCCULT BLOOD TESTon Lower GI hemoglobin IA Ql (Stl) Negative Negative [facility] OXIMETRY WITH AMBULATIONon 1 [facility] Vital Signs Date Time Vital Sign Value Performing Clinician Faci lity 02-08-2025 09:25-0400 Body height 162.[address] Yoseph Fall MD Work Phone: 8(736)198-817301 [place] [address] 02-08-2025 09:25-0400 Body mass index (BMI) [Ratio] 24.9 kg/m2 Dr. Yoseph Fall MD Work Phone: 6(745)733-325201 [place] [address] 02-08-2025 09:25-0400 Body weight 65.[address] Yoseph Fall MD Work Phone: [facility] 02-08-2025 09:25-0400 Diastolic blood pressure 63 mm[Hg] Dr. Yoseph Fall MD Work Phone: 3(621)620-214501 [place] [address] 02-08-2025 09:25-0400 Inhaled oxygen flow rate 3 L/min Dr. Yoseph Fall MD Work Phone: [facility] 02-08-2025 09:25-0400 Respiratory rate 18 /min Dr. Yoseph Fall MD Work Phone: 1(197)399-326801 [place] [address] 02-08-2025 09:25-0400 SaO2% (BldA) [Mass fraction] 98 % Dr. Yoseph Fall MD Work Phone: [facility] 02-08-2025 09:25-0400 Systolic blood pressure 105 mm[Hg] Dr. Yoseph Fall MD Work Phone: 6(997)733-925299 [place] [address] 01-31-2025 20:15-0400 Body temperature 97.7 [degF] Dr. Yoseph Fall MD Work Phone: 2(244)853-293899 [place] [address] 01-31-2025 20:15-0400 Diastolic blood pressure 68 mm[Hg] Dr. Yoseph Fall MD Work Phone: 3(295)824-258999 [place] [address] 01-31-2025 20:15-0400 Heart rate 92 /min Dr. Yoseph Fall MD Work Phone: 9(382)603-222799 [place] [address] 01-31-2025 20:15-0400 Inhaled oxygen flow rate 4 L/min Dr. Yoseph Fall MD Work Phone: 5(976)805-413399 [place] [address] 01-31-2025 20:15-0400 Respiratory rate 19 /min Dr. Yoseph Fall MD Work Phone: 0(739)767-295499 [place] [address] 01-31-2025 20:15-0400 SaO2% (BldA) [Mass fraction] 97 % Dr. Yoseph Fall MD Work Phone: 9(109)369-881099 [place] [address] 01-31-2025 20:15-0400 Systolic blood pressure 111 mm[Hg] Dr. Yoseph Fall MD Work Phone: 1(217)018-510599 [place] [address] 01-31-2025 03:19-0400 Inhaled oxygen concentration 35 % Dr. Yoseph Fall MD Work Phone: 2(549)294-463899 [place] [address] 01-31-2025 02:58-0400 Body mass index (BMI) [Ratio] 24.9 kg/m2 Dr. Yoseph Fall MD Work Phone: 2(198)601-652099 [place] [address] 01-31-2025 02:58-0400 Body weight 66.[address] Yoseph Fall MD Work Phone: 6(996)358-592799 [place] [address] 01-29-2025 09:27-0400 Body height 162.[address] Yoseph Fall MD Work Phone: 0(802)755-069799 [place] [address] 01-25-2025 13:31-0400 Heart rate 89 /min Dr. Yoseph Fall MD Work Phone: 6(382)541-901399 [place] [address] 01-25-2025 13:31-0400 Inhaled oxygen concentration 40 % Dr. Yoseph Fall MD Work Phone: 5(118)182-229199 [place] [address] 01-25-2025 13:31-0400 Respiratory rate 12 /min Dr. Yoseph Fall MD Work Phone: 9(777)552-650699 [place] [address] 01-25-2025 13:31-0400 SaO2% (BldA) [Mass fraction] 100 % Dr. Yoseph Fall MD Work Phone: 8(221)277-177299 [place] [address] 01-25-2025 12:00-0400 Body temperature 101.2 [degF] Dr. Yoseph Fall MD Work Phone: 3(806)205-311999 [place] [address] 01-25-2025 12:00-0400 Diastolic blood pressure 57 mm[Hg] Dr. Yoseph Fall MD Work Phone: 5(198)009-042999 [place] [address] 01-25-2025 12:00-0400 Systolic blood pressure 100 mm[Hg] Dr. Yoseph Fall MD Work Phone: 6(697)193-291599 [place] [address] 01-25-2025 11:47-0400 Body height 162.[address] Yoseph Fall MD Work Phone: 7(130)577-615899 [place] [address] 01-25-2025 11:47-0400 Body mass index (BMI) [Ratio] 27.8 kg/m2 Dr. Yoseph Fall MD Work Phone: 4(020)056-543699 [place] [address] 01-25-2025 11:47-0400 Body weight 73.[address] Yoseph Fall MD Work Phone: 2(111)433-493299 [place] [address] 01-25-2025 10:39-0400 Inhaled oxygen concentration 40 % Dr. Yoseph Fall MD Work Phone: 6(844)616-396999 [place] [address] 01-25-2025 10:39-0400 Respiratory rate 14 /min Dr. Yoseph Fall MD Work Phone: 1(905)217-925899 [place] [address] 01-25-2025 10:22-0400 Body temperature 100.6 [degF] Dr. Yoseph Fall MD Work Phone: 8(080)051-683399 [place] [address] 01-25-2025 10:22-0400 Diastolic blood pressure 88 mm[Hg] Dr. Yoseph Fall MD Work Phone: 1(712)602-134899 [place] [address] 01-25-2025 10:22-0400 Heart rate 100 /min Dr. Yoseph Fall MD Work Phone: 6(387)261-555299 [place] [address] 01-25-2025 10:22-0400 SaO2% (BldA) [Mass fraction] 95 % Dr. Yoseph Fall MD Work Phone: 5(099)470-881299 [place] [address] 01-25-2025 10:22-0400 Systolic blood pressure 111 mm[Hg] Dr. Yoseph Fall MD Work Phone: 5(479)897-007599 [place] [address] 01-25-2025 09:04-0400 Inhaled oxygen flow rate 8 L/min Dr. Yoseph Fall MD Work Phone: 3(637)308-803199 [place] [address] 01-25-2025 08:25-0400 Body height 162.[address] Yoseph Fall MD Work Phone: 3(751)230-380899 [place] [address] 01-25-2025 08:25-0400 Body mass index (BMI) [Ratio] 28.2 kg/m2 Dr. Yoseph Fall MD Work Phone: 8(266)012-292799 [place] [address] 01-25-2025 08:25-0400 Body weight 74.[address] Yoseph Fall MD Work Phone: 7(740)236-260399 [place] [address] 01-05-2025 15:00-0400 Diastolic blood pressure 82 mm[Hg] Zaria Shea MD Work Phone: [facility] 01-05-2025 15:00-0400 Heart rate 100 /min Zaria Shea MD Work Phone: [facility] 01-05-2025 15:00-0400 Respiratory rate 20 /min Zaria Shea MD Work Phone: [facility] 01-05-2025 15:00-0400 Systolic blood pressure 128 mm[Hg] Zaria Shea MD Work Phone: [facility] 01-05-2025 14:15-0400 SaO2% (BldA) [Mass fraction] 97 % Zaria Shea MD Work Phone: [facility] 01-05-2025 09:26-0400 Body temperature 98.01 [degF] Zaria Shea MD Work Phone: [facility] 12-30-2024 13:09-0400 Body temperature 98.1 [degF] Dr. Yoseph Fall MD Work Phone: 7(658)959-914901 [place] [address] 12-30-2024 13:09-0400 Diastolic blood pressure 52 mm[Hg] Dr. Yoseph Fall MD Work Phone: 5(979)553-202059 [address] 12-30-2024 13:09-0400 Heart rate 91 /min Dr. Yoseph Fall MD Work Phone: 6(421)718-829801 [place] [address] 12-30-2024 13:09-0400 Inhaled oxygen flow rate 2 L/min Dr. Yoseph Fall MD Work Phone: 7(508)947-856101 [place] [address] 12-30-2024 13:09-0400 Respiratory rate 18 /min Dr. Yoseph Fall MD Work Phone: 1(835)737-262759 [address] 12-30-2024 13:09-0400 SaO2% (BldA) [Mass fraction] 99 % Dr. Yoseph Fall MD Work Phone: [facility] 12-30-2024 13:09-0400 Systolic blood pressure 108 mm[Hg] Dr. Yoseph Fall MD Work Phone: [facility] 12-30-2024 05:14-0400 Body mass index (BMI) [Ratio] 27.4 kg/m2 Dr. Yoseph Fall MD Work Phone: [facility] 12-30-2024 05:14-0400 Body weight 72.[address] Yoseph Fall MD Work Phone: 2(804)436-979101 [place] [address] 12-28-2024 11:25-0400 Inhaled oxygen concentration 30 % Dr. Yoseph Fall MD Work Phone: 7(920)628-179799 [place] [address] 12-28-2024 09:46-0400 Body height 162.[address] Yoseph Fall MD Work Phone: 2(958)597-846399 [place] [address] 12-27-2024 15:13-0400 Body height 162.[address] Yoseph Fall MD Work Phone: 8(001)284-518399 [place] [address] 12-27-2024 15:13-0400 Body weight 71.[address] Yoseph Fall MD Work Phone: 6(242)128-210999 [place] [address] 12-27-2024 14:31-0400 Heart rate 94 /min Dr. Yoseph Fall MD Work Phone: 1(976)676-236499 [place] [address] 12-27-2024 14:31-0400 Respiratory rate 18 /min Dr. Yoseph Fall MD Work Phone: 2(677)527-473599 [place] [address] 12-27-2024 10:15-0400 Body temperature 98.3 [degF] Dr. Yoseph Fall MD Work Phone: 5(482)177-150699 [place] [address] 12-27-2024 10:15-0400 Diastolic blood pressure 70 mm[Hg] Dr. Yoseph Fall MD Work Phone: 3(069)891-251799 [place] [address] 12-27-2024 10:15-0400 Inhaled oxygen flow rate 3 L/min Dr. Yoseph Fall MD Work Phone: 5(341)825-631999 [place] [address] 12-27-2024 10:15-0400 SaO2% (BldA) [Mass fraction] 96 % Dr. Yoseph Fall MD Work Phone: 9(492)307-185599 [place] [address] 12-27-2024 10:15-0400 Systolic blood pressure 131 mm[Hg] Dr. Yoseph Fall MD Work Phone: 1(213)475-515999 [place] [address] 12-27-2024 05:15-0400 Body mass index (BMI) [Ratio] 26.7 kg/m2 Dr. Yoseph Fall MD Work Phone: 1(450)236-942999 [place] [address] 12-26-2024 20:00-0400 Diastolic blood pressure 81 mm[Hg] Dr. Yoseph Fall MD Work Phone: 4(162)121-357899 [place] [address] 12-26-2024 20:00-0400 Heart rate 106 /min Dr. Yoseph Fall MD Work Phone: 4(969)457-224399 [place] [address] 12-26-2024 20:00-0400 Inhaled oxygen flow rate 3 L/min Dr. Yoseph Fall MD Work Phone: 7(392)853-178899 [place] [address] 12-26-2024 20:00-0400 Respiratory rate 18 /min Dr. Yoseph Fall MD Work Phone: 6(302)366-372399 [place] [address] 12-26-2024 20:00-0400 SaO2% (BldA) [Mass fraction] 97 % Dr. Yoseph Fall MD Work Phone: 8(998)477-164099 [place] [address] 12-26-2024 20:00-0400 Systolic blood pressure 138 mm[Hg] Dr. Yoseph Fall MD Work Phone: 8(528)935-616999 [place] [address] 12-26-2024 19:58-0400 Body temperature 98.6 [degF] Dr. Yoseph Fall MD Work Phone: 1(828)708-130699 [place] [address] 12-26-2024 16:37-0400 Body mass index (BMI) [Ratio] 28 kg/m2 Dr. Yoseph Fall MD Work Phone: 6(388)801-747299 [place] [address] 12-26-2024 16:37-0400 Body weight [address] Yoseph Fall MD Work Phone: 6(103)380-331599 [place] [address] 12-26-2024 13:53-0400 Body height 162.[address] Yoseph Fall MD Work Phone: 6(712)245-783799 [place] [address] 12-15-2024 15:04-0400 Diastolic blood pressure 80 mm[Hg] Zaria Shea MD Work Phone: [facility] 12-15-2024 15:04-0400 Systolic blood pressure 130 mm[Hg] Zaria Shea MD Work Phone: [facility] 12-15-2024 14:45-0400 Body height 162.6 cm Rubi Corbett MD Work Phone: [facility] 12-15-2024 14:45-0400 Body mass index (BMI) [Ratio] 26.61 kg/m2 Rubi Corbett MD Work Phone: [facility] 12-15-2024 14:45-0400 Body weight 70.31 kg Rubi Corbett MD Work Phone: [facility] 12-15-2024 14:45-0400 Diastolic blood pressure 90 mm[Hg] Rubi Corbett MD Work Phone: [facility] 12-15-2024 14:45-0400 Heart rate 99 /min Rubi Corbett MD Work Phone: [facility] 12-15-2024 14:45-0400 SaO2% (BldA) [Mass fraction] 93 % Rubi Corbett MD Work Phone: [facility] 12-15-2024 14:45-0400 Systolic blood pressure 164 mm[Hg] Rubi Corbett MD Work Phone: [facility] 12-15-2024 14:36-0400 Body height 162.6 cm Zaria Shea MD Work Phone: [facility] 12-15-2024 14:36-0400 Body mass index (BMI) [Ratio] 26.61 kg/m2 Zaria Shea MD Work Phone: [facility] 12-15-2024 14:36-0400 Body weight 70.31 kg Zaria Shea MD Work Phone: [facility] 12-15-2024 14:36-0400 Heart rate 99 /min Zaria Shea MD Work Phone: [facility] 12-15-2024 14:36-0400 SaO2% (BldA) [Mass fraction] 93 % Zaria Shea MD Work Phone: [facility] 11-03-2024 13:06-0400 Body height 162.[address] Yoseph Fall MD Work Phone: [facility] 11-03-2024 13:06-0400 Body mass index (BMI) [Ratio] 25.9 kg/m2 Dr. Yoseph Fall MD Work Phone: [facility] 11-03-2024 13:06-0400 Body weight 68.[address] Yoseph Fall MD Work Phone: 5(175)795-325659 [address] 11-03-2024 13:06-0400 Diastolic blood pressure 65 mm[Hg] Dr. Yoseph Fall MD Work Phone: 1(829)185-057899 [place] [address] 11-03-2024 13:06-0400 Heart rate 86 /min Dr. Yoseph Fall MD Work Phone: 8(865)519-364859 [address] 11-03-2024 13:06-0400 Respiratory rate 20 /min Dr. Yoseph Fall MD Work Phone: [facility] 11-03-2024 13:06-0400 Systolic blood pressure 110 mm[Hg] Dr. Yoseph Fall MD Work Phone: [facility] 10-17-2024 14:32-0400 Body mass index (BMI) [Ratio] 26.22 kg/m2 Yoseph Fall MD Work Phone: [facility] 10-17-2024 14:32-0400 Body temperature 97.81 [degF] Yoseph Fall MD Work Phone: [facility] 10-17-2024 14:32-0400 Body weight 67.13 kg Yoseph Fall MD Work Phone: [facility] 10-17-2024 14:32-0400 Diastolic blood pressure 64 mm[Hg] Yoseph Fall MD Work Phone: [facility] 10-17-2024 14:32-0400 Heart rate 82 /min Yoseph Fall MD Work Phone: [facility] 10-17-2024 14:32-0400 SaO2% (BldA) [Mass fraction] 94 % Yoseph Fall MD Work Phone: [facility] 10-17-2024 14:32-0400 Systolic blood pressure 105 mm[Hg] Yoseph Fall MD Work Phone: [facility] 10-09-2024 15:47-0400 Heart rate 109 /min Dr. Yoseph Fall MD Work Phone: 4(110)483-129301 [place] [address] 10-09-2024 15:47-0400 Respiratory rate 20 /min Dr. Yoseph Fall MD Work Phone: 7(803)197-922199 [place] [address] 10-09-2024 15:37-0400 Inhaled oxygen flow rate 2 L/min Dr. Yoseph Fall MD Work Phone: 5(774)521-922699 [place] [address] 10-09-2024 15:35-0400 Body temperature 98.1 [degF] Dr. Yoseph Fall MD Work Phone: 5(652)048-562399 [place] [address] 10-09-2024 15:35-0400 Diastolic blood pressure 72 mm[Hg] Dr. Yoseph Fall MD Work Phone: 5(980)505-104299 [place] [address] 10-09-2024 15:35-0400 SaO2% (BldA) [Mass fraction] 97 % Dr. Yoseph Fall MD Work Phone: 3(370)139-819899 [place] [address] 10-09-2024 15:35-0400 Systolic blood pressure 142 mm[Hg] Dr. Yoseph Fall MD Work Phone: 3(660)805-236999 [place] [address] 10-09-2024 04:58-0400 Body mass index (BMI) [Ratio] 26.1 kg/m2 Dr. Yoseph Fall MD Work Phone: 8(676)711-189599 [place] [address] 10-09-2024 04:58-0400 Body weight 69.[address] Yoseph Fall MD Work Phone: 4(195)836-136899 [place] [address] 10-08-2024 11:37-0400 Body height 162.[address] Yoseph Fall MD Work Phone: 9(148)808-794399 [place] [address] 09-30-2024 22:20-0400 Inhaled oxygen concentration 30 % Dr. Yoseph Fall MD Work Phone: 2(862)049-272499 [place] [address] 09-29-2024 05:00-0400 Body temperature 98.8 [degF] Dr. Yoseph Fall MD Work Phone: 9(232)243-648899 [place] [address] 09-29-2024 05:00-0400 Diastolic blood pressure 65 mm[Hg] Dr. Yoseph Fall MD Work Phone: 1(492)520-684699 [place] [address] 09-29-2024 05:00-0400 Heart rate 111 /min Dr. Yoseph Fall MD Work Phone: 0(367)592-229399 [place] [address] 09-29-2024 05:00-0400 Respiratory rate 21 /min Dr. Yoseph Fall MD Work Phone: 1(179)291-901099 [place] [address] 09-29-2024 05:00-0400 SaO2% (BldA) [Mass fraction] 96 % Dr. Yoseph Fall MD Work Phone: 6(214)014-663999 [place] [address] 09-29-2024 05:00-0400 Systolic blood pressure 123 mm[Hg] Dr. Yoseph Fall MD Work Phone: 2(259)914-397999 [place] [address] 09-29-2024 03:23-0400 Inhaled oxygen flow rate 3 L/min Dr. Yoseph Fall MD Work Phone: [phone] [place] [id number] 09-29-2024 02:19-0400 Body height 162.[address] Yoseph Fall MD Work Phone: [phone] [place] [address] 09-29-2024 02:19-0400 Body mass index (BMI) [Ratio] 27 kg/m2 Dr. Yoseph Fall MD Work Phone: [phone] [place] [address] 09-29-2024 02:19-0400 Body weight 71.[address] Yoseph Fall MD Work Phone: [phone] [place] [address] 04-07-2024 08:39-0500 Body mass index (BMI) [Ratio] 29.23 kg/m2 Yoseph Fall MD Work Phone: [facility] 04-07-2024 08:39-0500 Body temperature 98.1 [degF] Yoseph Fall MD Work Phone: [facility] 04-07-2024 08:39-0500 Body weight 74.84 kg Yoseph Fall MD Work Phone: [facility] 04-07-2024 08:39-0500 Diastolic blood pressure 76 mm[Hg] Yoseph Fall MD Work Phone: [facility] Comment on above: home bp 04-07-2024 08:39-0500 Heart rate 86 /min Yoseph Fall MD Work Phone: [facility] 04-07-2024 08:39-0500 SaO2% (BldA) [Mass fraction] 93 % Yoseph Fall MD Work Phone: [facility] 04-07-2024 08:39-0500 Systolic blood pressure 141 mm[Hg] Yoseph Fall MD Work Phone: [facility] Comment on above: home bp 07-22-2023 17:49-0400 Heart rate 93 /min Dr. Yoseph Fall Work Phone: [facility] 07-22-2023 17:49-0400 Respiratory rate 18 /min Dr. Yoseph Fall Work Phone: [facility] 07-22-2023 16:37-0400 Body temperature 98.7 [degF] Dr. Yoseph Fall Work Phone: [facility] 07-22-2023 16:37-0400 Diastolic blood pressure 68 mm[Hg] Dr. Yoseph Fall Work Phone: [facility] 07-22-2023 16:37-0400 SaO2% (BldA) [Mass fraction] 96 % Dr. Yoseph Fall Work Phone: [facility] 07-22-2023 16:37-0400 Systolic blood pressure 146 mm[Hg] Dr. Yoseph Fall Work Phone: [facility] 07-22-2023 11:00-0400 Inhaled oxygen flow rate 2.5 L/min Dr. Yoseph Fall Work Phone: [facility] 07-22-2023 06:00-0400 Body mass index (BMI) [Ratio] 26.5 kg/m2 Dr. Yoseph Fall Work Phone: [facility] 07-22-2023 06:00-0400 Body weight 70.[address] Yoseph Fall Work Phone: [facility] 07-20-2023 05:02-0400 Body height 162.56 cm [facility] 07-20-2023 05:02-0400 Body mass index (BMI) [Ratio] 26.6 kg/m2 [facility] 07-20-2023 05:02-0400 Body weight 70.6 kg [facility] 07-20-2023 05:00-0400 Body temperature 98.9 [degF] [facility] 07-20-2023 05:00-0400 Diastolic blood pressure 72 mm[Hg] [facility] 07-20-2023 05:00-0400 Heart rate 124 /min [facility] 07-20-2023 05:00-0400 Inhaled oxygen flow rate 3.5 L/min [facility] 07-20-2023 05:00-0400 Respiratory rate 24 /min [facility] 07-20-2023 05:00-0400 SaO2% (BldA) [Mass fraction] 93 % [facility] 07-20-2023 05:00-0400 Systolic blood pressure 124 mm[Hg] [facility] 02-19-2023 14:12-0400 Body weight 73.48 kg Yoseph Fall MD Work Phone: [facility] 02-19-2023 14:12-0400 Diastolic blood pressure 78 mm[Hg] Yoseph Fall MD Work Phone: [facility] 02-19-2023 14:12-0400 Heart rate 100 /min Yoseph Fall MD Work Phone: [facility] 02-19-2023 14:12-0400 Respiratory rate 20 /min Yoseph Fall MD Work Phone: [facility] 02-19-2023 14:12-0400 SaO2% (BldA) [Mass fraction] 96 % Yoseph Fall MD Work Phone: [facility] 02-19-2023 14:12-0400 Systolic blood pressure 130 mm[Hg] Yoseph Fall MD Work Phone: [facility] 05-01-2022 14:41-0500 Body weight 78.47 kg Yoseph Fall MD Work Phone: [facility] 05-01-2022 14:41-0500 Diastolic blood pressure 81 mm[Hg] Yoseph Fall MD Work Phone: [facility] 05-01-2022 14:41-0500 Heart rate 105 /min Yoseph Fall MD Work Phone: [facility] 05-01-2022 14:41-0500 Systolic blood pressure 132 mm[Hg] Yoseph Fall MD Work Phone: [facility] 02-20-2022 13:22-0400 Body weight 77.56 kg Respiratory Wstr Work Phone: [facility] 02-20-2022 13:22-0400 Heart rate 108 /min Respiratory Wstr Work Phone: [facility] 02-20-2022 13:22-0400 Respiratory rate 16 /min Respiratory Wstr Work Phone: [facility] 02-20-2022 13:22-0400 SaO2% (BldA) [Mass fraction] 93 % Respiratory Wstr Work Phone: [facility] Encounters Encounter Date Encounter Type Care Provider Facility Start: 02-13-2025 ambulatory Jessica Barra JP Facili ty:[facility] Start: 02-08-2025 End: 02-08-2025 Ingris WATTS -[facility] Work Phone: Start: 02-08-2025 End: 02-08-2025 ambulatory Yoseph Fall Facility:[facility] Start: 02-08-2025 ambulatory Jessica Barra OLS Facili ty:[facility] Start: 02-08-2025 Dr. Jessica Luo MD [facility] Start: 02-06-2025 ambulatory Jessica TRAMMELL Facili ty:[facility] Start: 02-06-2025 Dr. Jessica Luo MD [facility] Start: 02-01-2025 ambulatory Yoseph Fall Facilit y:[facility] Start: 02-01-2025 Dr. Jessica Luo MD -[facility] Start: 01-31-2025 Dr. Debby Gu MD -[facility] Work Phone: Start: 01-30-2025 Dr. Debby Gu MD -[facility] Work Phone: Start: 01-29-2025 Dr. Debby Gu MD -[facility] Work Phone: Start: 01-28-2025 Dr. [facility] Work Phone: Start: 01-27-2025 Dr. Debby Gu MD [facility] Work Phone: Start: 01-26-2025 Dr. Amy Keenan MD -[facility] Start: 01-26-2025 Dr. Andriy Guzmán DO [facility] Start: 01-26-2025 Dr. Dionne Porter MD - [facility] Work Phone: Start: 01-25-2025 Dr. Andriy Guzmán DO [facility] Start: 01-25-2025 ambulatory Yoseph Fall Facilit y:[facility] Start: 01-25-2025 End: 01-31-2025 Evaluation and management of inpatient Dr. Yoseph Fall MD Work Phone: -Progressive Care Unit Start: 01-25-2025 End: 01-31-2025 Dr. Alessandro Palma MD -Intensive Care Uni t Work Phone: Start: 01-25-2025 End: 01-25-2025 Emergency department patient visit Dr. Yoseph Fall MD Work Phone: -Emergency Department Start: 01-25-2025 End: 01-25-2025 Dr. Yoseph Fall MD Work Phone: -Emergency Department Work Phone: Start: 01-23-2025 End: 01-23-2025 ambulatory GREGOR VALENCIAAUSTEN Facility:[facility] Start: 01-15-2025 ambulatory Yoseph Lewis y:[facility] Start: 01-12-2025 End: 01-12-[address] Yoseph Fall MD Work Phone: -Home Health Lab Start: 01-12-2025 End: 01-12-2025 Dr. Zaria Shea MD -Home Health [facility] Start: 01-12-2025 End: 01-12-2025 ambulatory Zaria Chen Facility:[facility] Start: 01-09-2025 End: 01-09-2025 Telephone encounter Yoseph Fall MD Work Phone: [facility] [place] Comment on above: Medication Request Start: 01-08-2025 End: 01-08-2025 Telephone encounter Yoseph Fall MD Work Phone: [facility] [place] Comment on above: Delay In Care Physic al Therapy Start: 01-05-2025 End: 01-05-2025 ambulatory ZARIA SHEA [facility] Start: 01-05-2025 End: 01-05-2025 Patient encounter status Zaria Shea MD Work Phone: [facility] Work Phone: Start: 01-05-2025 End: 01-05-2025 Subsequent hospital visit by physician Zaria Shea MD Work Phone: [facility] Comment on above: Aortic valve stenosi s, etiology of cardiac valve disease unspecified (Primary Dx); Preop cardiovascular exam Start: 01-04-2025 End: 01-04-2025 ambulatory Shonda Bacon APRN - [employer] Work Phone: [facility] [place] Start: 01-03-2025 End: 01-03-2025 Telephone encounter [facility]oseph Fall MD [facility] Comment on above: Delay In Care Social Work Consult Start: 01-02-2025 End: 01-03-2025 Telephone encounter Yoseph Fall MD Work Phone: [facility] [place] Comment on above: home health calling asking for verbal order Start: 12-30-2024 Dr. Lynne Booth [place] [facility] Work Phone: Start: 12-29-2024 Non-patient / Non-visit Dr. Lynne Mak [facility] Work Phone: Start: 12-29-2024 Dr. Lynne Peoples [facility] Work Phone: Start: 12-29-2024 Non-patient / Non-visit Stacy Jha SOUND EFFECTS TECHNICIAN-C -[facility] Start: 12-29-2024 Stacy Jha SOUND EFFECTS TECHNICIAN-C -[facility] Start: 12-28-2024 Non-patient / Non-visit Dr. Lynne Mak [facility] Work Phone: Start: 12-28-2024 Dr. Lynne Peoples [facility] Work Phone: Start: 12-28-2024 Non-patient / Non-visit Kyle Aguilar nd DO -[facility] Start: 12-28-2024 Kyle Mendenhall DO -[facility] Start: 12-28-2024 Non-patient / Non-visit Stacy Jha SOUND EFFECTS TECHNICIAN-C -[facility] Start: 12-28-2024 Stacy Jha SOUND EFFECTS TECHNICIAN-C -[facility] Start: 12-27-2024 Non-patient / Non-visit Dr. Lynne Mak [facility] Work Phone: Start: 12-27-2024 Dr. Lynne Peoples [facility] Work Phone: Start: 12-27-2024 Non-patient / Non-visit Stacy Yudelka SOUND EFFECTS TECHNICIAN-C -[facility] Start: 12-27-2024 Stacy Jha SOUND EFFECTS TECHNICIAN-C -[facility] Start: 12-27-2024 End: 01-01-2025 Telephone encounter Yoseph Fall MD Work Phone: [facility] [place] Comment on above: Patient Update Start: 12-26-2024 Non-patient / Non-visit Dr. Dionne Porter MD -[place] [facility] Work Phone: Start: 12-26-2024 ambulatory Yoesph Lewis y:[facility] Start: 12-26-2024 End: 12-30-2024 Evaluation and management of inpatient Dr. Dionne Porter MD -Progressive Care Unit Work Phone: Start: 12-26-2024 End: 12-30-2024 Dr. Lynne Schafer MD -Progressive Care Unit Work Phone: Start: 12-26-2024 End: 12-26-2024 Telephone encounter Yoseph Fall MD Work Phone: [facility] [place] Comment on above: Insurance Authorizat ion Start: 12-22-2024 End: 12-22-2024 Telephone encounter Yoseph Fall MD Work Phone: [facility] [place] Comment on above: Patient Update Start: 12-19-2024 End: 12-19-2024 Refill Yoseph Fall MD Work Phone: [facility] [place] Comment on above: Refill Request Start: 12-15-2024 End: 12-15-2024 [facility] Start: 12-15-2024 End: 12-15-2024 Office consultation new/estab patient 80 min Rubi Corbett MD Work Phone: [facility] [place] Comment on above: Severe aortic stenos is (Primary Dx); Chronic respiratory failure with hypoxia (HCC) Start: 12-15-2024 End: 12-15-2024 ambulatory RUBI CORBETT [facility] Start: 12-15-2024 End: 12-15-2024 Encounter for preprocedural cardiovascular examination ZARIA SHEA [facility] Start: 12-15-2024 End: 12-15-2024 Office outpatient new 60 minutes Zaria Shea MD Work Phone: [facility] Comment on above: Preop cardiovascular exam (Primary Dx); Nonrheumatic aortic valve stenosis Start: 12-15-2024 End: 12-15-2024 Patient encounter status Zaria Shea MD Work Phone: [facility] Start: 12-08-2024 End: 12-08-2024 Refill Yoseph Fall MD Work Phone: [facility] [place] Comment on above: Refill Request Insurance Authorizat ion Start: 11-27-2024 End: 11-27-2024 Telephone encounter Ysoeph Fall MD Work Phone: [facility] [place] Comment on above: [facility] Nursing Call Start: 11-24-2024 End: 11-24-2024 Telephone encounter Shira HOLM Work Phone: [facility] Comment on above: Care Coordination Start: 11-23-2024 End: 11-23-2024 [facility] Gregor Fernandez APRN.[employer] Work Phone: [facility] Comment on above: [...] Other chronic pain; Dependence on supplemental oxygen; detention (current) use of 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 Refill Request Start: 11-22-2024 End: 11-28-2024 Telephone encounter Zaria Shea MD Work Phone: [facility] Start: 11-21-2024 End: 11-21-2024 ambulatory GREGOR FERNANDEZ Facility:[facility] Start: 11-21-2024 End: 11-21-2024 Patient encounter procedure Gregor Fernandez DESIGN ENGINEER AGRICULTURAL EQUIPMENT.[employer] Work Phone: [facility] Comment on above: No-show for appointm ent (Primary Dx); Stage 3 severe COPD by GOLD classification (HCC); Chronic low back pain with sciatica, sciatica laterality unspecified, unspecified back pain laterality Start: 11-21-2024 End: 11-21-2024 Telemedicine consultation with patient Gregor Fernandez DESIGN ENGINEER AGRICULTURAL EQUIPMENT.[employer] Work Phone: [facility] Start: 11-20-2024 End: 11-24-2024 Telephone encounter Yoseph Fall MD Work Phone: [facility] Comment on above: Patient Update Start: 11-10-2024 End: 11-13-2024 Telephone encounter Yoseph Fall MD Work Phone: [facility] Comment on above: Patient Request; Pat ient Update Start: 11-08-2024 End: 11-08-2024 [facility] Haylee Martínez Carter DESIGN ENGINEER AGRICULTURAL EQUIPMENT.[employer] Work Phone: [facility] Comment on above: NO SHOW (Primary Dx) ; Stage 3 severe COPD by GOLD classification (HCC); Generalized osteoarthrosis, involving multiple sites; Generalized anxiety disorder; Chronic low back pain with sciatica, sciatica laterality unspecified, unspecified back pain laterality Start: 11-03-2024 End: 11-03-2024 Patient encounter procedure [facility] Work Phone: Start: 11-03-2024 End: 11-03-2024 [facility] Work Phone: Start: 11-03-2024 End: 11-03-[address] Yoseph Fall MD Work Phone: -[facility] Start: 10-31-2024 End: 11-01-2024 Refill Yoseph Fall MD Work Phone: [facility] Comment on above: Home Care Management ; Refill Request Start: 10-24-2024 End: 11-03-2024 Telephone encounter Yoseph Fall MD Work Phone: [facility] Comment on above: pall med- [id number]; Ini tial Consult Patient Request order question Start: 10-23-2024 End: 10-23-2024 Telephone encounter Yoseph Fall MD Work Phone: [facility] [place] Comment on above: Patient Update Start: 10-20-2024 End: 10-20-2024 Telephone encounter Yoseph Fall MD Work Phone: [facility] [place] Comment on above: Patient Update; Medi cation Request Start: 10-19-2024 End: 10-20-2024 Telephone encounter Yoseph Fall MD Work Phone: [facility] [place] Comment on above: Patient Update Start: 10-18-2024 End: 10-20-2024 Telephone encounter Yoseph Fall MD Work Phone: [facility] [place] Comment on above: Orders; Occupation T herapy Plan of care (SW Consult); Physical Therapy Plan of Care Start: 10-17-2024 End: 10-17-2024 ambulatory YOSEPH FALL Facility:[facility] Start: 10-17-2024 End: 10-17-2024 Transitional care manage srvc 14 day discharge Yoseph Fall MD Work Phone: [facility] [place] Comment on above: Stage 3 severe COPD by GOLD classification (HCC) (Primary Dx); Chronic low back pain with sciatica, sciatica laterality unspecified, unspecified back pain laterality; Essential hypertension, benign; Tobacco use disorder; Generalized anxiety disorder; Aortic valve stenosis, etiology of cardiac valve disease unspecified Start: 10-13-2024 End: 10-13-2024 Telephone encounter Yoseph Fall MD Work Phone: [facility] [place] Comment on above: PT Delay in Care Ord er Start: 10-12-2024 End: 10-17-2024 Refill Yoseph Fall MD Work Phone: [facility] [place] Comment on above: Refill Request Start: 10-11-2024 End: 10-12-2024 Refill Yoseph Fall MD Work Phone: [facility] Comment on above: Refill Request Start: 10-10-2024 End: 10-12-2024 ambulatory Naima Haines [facility] Start: 10-10-2024 End: 10-12-2024 Telephone encounter Yoseph Fall MD Work Phone: [facility] Comment on above: [facility] patient updat e Transition Of Care Start: 10-09-2024 Non-patient / Non-visit Dr. Alessandro Palma MD -[place] [facility] Work Phone: Start: 10-09-2024 Dr. Alessandro Palma MD [facility] Work Phone: Start: 10-09-2024 End: 10-10-2024 Telephone encounter Yoseph Fall MD Work Phone: [facility] Comment on above: Patient Update Orders Medication Problem; Patient Update Start: 10-08-2024 Non-patient / Non-visit Dr. Lynne Schafer MD [facility] Work Phone: Start: 10-08-2024 Dr. Lynne Schafer MD - [place] [facility] Work Phone: Start: 10-07-2024 Non-patient / Non-visit Dr. Lynne Schafer MD [facility] Work Phone: Start: 10-07-2024 Dr. Lynne Schafer MD [facility] Work Phone: Start: 10-07-2024 Non-patient / Non-visit Dr. Michael Plasencia MD -[facility] Start: 10-07-2024 Dr. Michael Plasencia MD -[facility] Start: 10-06-2024 Non-patient / Non-visit Dr. Lynne Schafer MD [facility] Work Phone: Start: 10-06-2024 Dr. Lynne Booth [place] [facility] Work Phone: Start: 10-06-2024 Non-patient / Non-visit Dr. Michael Plasencia MD [facility] Start: 10-06-2024 Dr. Michael Plasencia MD [facility] Start: 10-05-2024 Non-patient / Non-visit Dr. Lynne Schafer MD [facility] Work Phone: Start: 10-05-2024 Dr. Lynne Schafer MD [facility] Work Phone: Start: 10-04-2024 Non-patient / Non-visit Dr. Lynne Schafer MD [facility] Work Phone: Start: 10-04-2024 Dr. Lynne Schafer MD [facility] Work Phone: Start: 10-04-2024 Non-patient / Non-visit Dr. Junito Madrid MD [facility] Start: 10-04-2024 Dr. Junito Madrid MD [facility] Start: 10-03-2024 Non-patient / Non-visit Dr. Lynne Schafer MD [facility] Work Phone: Start: 10-03-2024 Dr. Lynne Schafer MD [facility] Work Phone: Start: 10-03-2024 Non-patient / Non-visit Dr. Junito Madrid MD [facility] Start: 10-03-2024 Dr. Junito Madrid MD [facility] Start: 10-02-2024 ambulatory Dillon Lopez Facility:[facility] Start: 10-02-2024 Non-patient / Non-visit Dr. Dillon geiger MD [facility] Start: 10-02-2024 Dr. Dillon Lpoez MD [facility] Start: 10-02-2024 Non-patient / Non-visit Dr. Lynne Schafer MD [facility] Work Phone: Start: 10-02-2024 Dr. Lynne Schafer MD - [place] [facility] Work Phone: Start: 10-01-2024 Non-patient / Non-visit Dr. April Bolanos MD -[place] [facility] Work Phone: Start: 10-01-2024 Dr. Jan Bolanos MD -[place] [facility] Work Phone: Start: 09-30-2024 Non-patient / Non-visit Dr. April Bolanos MD -[place] [facility] Work Phone: Start: 09-30-2024 Dr. Jan Bolanos MD -[place] [facility] Work Phone: Start: 09-29-2024 ambulatory [facility] Facility :[facility] Start: 09-29-2024 End: 10-09-2024 Evaluation and management of inpatient Dr. Alessandro Palma MD -Progressive Care Unit Work Phone: Start: 09-29-2024 End: 10-09-2024 Dr. Alessandro Palma MD -Progressive Care Unit Work Phone: Start: 09-29-2024 Evaluation and management of inpatient Dr. Dionne Porter MD -Progressive Care Unit Work Phone: Start: 09-29-[address] Yoseph Fall MD Work Phone: [facility] Work Phone: Start: 09-29-2024 ambulatory [facility] Facility [facility] Start: 09-29-2024 Non-patient / Non-visit Dr. Dionne Porter MD -[place] [facility] Work Phone: Start: 09-29-2024 Dr. Dionne Porter MD - [place] [facility] Work Phone: Start: 09-28-2024 End: 09-28-2024 Refill Yoseph Fall MD Work Phone: [facility] Comment on above: Refill Request Start: 08-29-2024 End: 08-29-2024 Refill Yoseph Fall MD Work Phone: [address] [place] [address] Comment on above: Refill Request Start: 08-15-2024 [...] Yoseph Fall MD Work Phone: [facility] [place] Comment on above: Refill Request Start: 06-12-2024 End: 06-12-2024 Telephone encounter Yoseph Fall MD Work Phone: [facility] [place] Comment on above: Forms ([employer]) Start: 06-02-2024 End: 06-07-2024 Telephone encounter Yoseph Fall MD Work Phone: [facility] [place] Comment on above: Insurance Authorizat ion Start: 06-01-2024 End: 06-01-2024 Refill Yoseph Fall MD Work Phone: [facility] [place] Comment on above: Refill Request; Medi cation Problem ([employer]) Start: 05-16-2024 End: 06-16-2024 Refill Yoseph Fall MD Work Phone: [facility] [place] Comment on above: Refill Request Start: 04-10-2024 End: 04-10-2024 Refill Yoseph Fall MD Work Phone: [facility] [place] Comment on above: Refill Request Start: 04-07-2024 End: 04-07-2024 Distance Health Yoseph Fall MD Work Phone: [facility] [place] Comment on above: Chronic low back geoffrey n with sciatica, sciatica laterality unspecified, unspecified back pain laterality (Primary Dx); Essential hypertension, benign; Generalized anxiety disorder; Depression, unspecified depression type; Gastroesophageal reflux disease without esophagitis Start: 03-21-2024 End: 03-22-2024 Telephone encounter Yoseph Fall MD Work Phone: [facility] [place] Comment on above: Patient Question Start: 03-20-2024 End: 03-20-2024 Refill Yoseph Fall MD Work Phone: [facility] [place] Comment on above: Refill Request Start: 03-03-2024 End: 03-03-2024 Refill Yoseph Fall MD Work Phone: [facility] [place] Comment on above: Refill Request Start: 02-14-2024 End: 02-14-2024 Refill Yoseph Fall MD Work Phone: [facility] [place] Comment on above: Refill Request Start: 02-03-2024 End: 02-04-2024 Telephone encounter Yoseph Fall MD Work Phone: [facility] [place] Comment on above: Patient Question Start: 01-18-2024 End: 01-18-2024 Refill Yoseph Fall MD Work Phone: [facility] [place] Comment on above: Refill Request Start: 12-24-2023 End: 12-24-2023 Refill Yoseph Fall MD Work Phone: [facility] [place] Comment on above: Refill Request Start: 11-29-2023 End: 11-29-2023 Distance Health Yoseph Fall MD Work Phone: [facility] [place] Comment on above: Stage 3 severe COPD by GOLD classification ([facility]) (Primary Dx); Generalized osteoarthrosis, involving multiple sites; Chronic low back pain with sciatica, sciatica laterality unspecified, unspecified back pain laterality; Essential hypertension, benign; Tobacco use disorder; Dysthymic disorder Start: 11-16-2023 Refill Yoseph emmanuel MD Work Phone: [facility] [place] Comment on above: Refill Request Start: 11-08-2023 Telephone encounter Yoseph lei MD Work Phone: [facility] [place] Comment on above: Insurance Authorizat ion Start: 11-05-2023 Refill Yoseph emmanuel MD Work Phone: [facility] [place] Comment on above: Refill Request Start: 10-22-2023 Telephone encounter Yoseph lei MD Work Phone: [address] [place] [address] Comment on above: Medication Request ( Requesting antibiotic) Start: 10-18-2023 Refill Yoseph emmanuel MD Work Phone: [facility] [place] Comment on above: Refill Request Start: 10-01-2023 Telephone encounter Yoseph lei MD Work Phone: [facility] [place] Comment on above: Medication Problem Start: 09-22-2023 Refill Yoseph emmanuel MD Work Phone: [facility] Comment on above: Refill Request Start: 09-15-2023 Refill Yoseph emmanuel MD Work Phone: [facility] [place] Comment on above: Refill Request Start: 08-23-2023 End: 08-23-2023 Distance [facility] Yoseph Fall MD Work Phone: [facility] [place] Comment on above: Stage 3 severe COPD by GOLD classification ([facility]) (Primary Dx); Essential hypertension, benign; Cigarette smoker; Generalized anxiety disorder; Chronic low back pain with sciatica, sciatica laterality unspecified, unspecified back pain laterality Start: 07-27-2023 Refill Yoseph emmanuel MD Work Phone: [facility] Comment on above: Refill Request Start: 07-26-2023 End: 07-26-2023 Patient Outreach Yoseph Fall MD Work Phone: [facility] Comment on above: Transition Of Care Obstructive chronic bronchitis with exacerbation (HCC) (Primary Dx); Stage 3 severe COPD by GOLD classification (HCC); Cigarette smoker; Chronic respiratory failure with hypoxia (HCC) Start: 07-22-2023 Non-patient / Non-visit Dr. Jos Fall Work Phone: [facility] Work Phone: Start: 07-21-2023 Non-patient / Non-visit Dr. Jos Fall Work Phone: [facility] Work Phone: Start: 07-20-2023 End: 07-22-2023 Evaluation and management of inpatient [facility] Work Phone: Start: 07-19-2023 Telephone encounter Yoseph lei MD Work Phone: [facility] Comment on above: Medication Request; Cough Start: 06-28-2023 Refill Yoseph emmanuel MD Work Phone: [facility] Comment on above: Med Change Request Start: 06-17-2023 Telephone encounter Yoseph lei MD Work Phone: [facility] Comment on above: Forms ([employer] re: incontinence supplies) Start: 06-16-2023 ambulatory Yoseph emmanuel MD Work Phone: Internal Medicine [place] Start: 06-15-2023 Telephone encounter Yoseph lei MD Work Phone: [facility] Comment on above: Mouth/Lip Problem Start: 06-14-2023 Telephone encounter Yoseph lei MD Work Phone: Internal Medicine [place] Comment on above: Insurance Authorizat ion Start: 06-11-2023 Refill Yoseph emmanuel MD Work Phone: Family [facility] [place] Comment on above: Refill Request Start: 03-30-2023 Telephone encounter Yoseph lei MD Work Phone: [facility] [place] Start: 03-17-2023 Refill Yoseph emmanuel MD Work Phone: Family [facility] [place] Comment on above: Refill Request Start: 02-19-2023 End: 02-19-2023 Patient encounter procedure Yoseph Fall MD Work Phone: [facility] [place] Comment on above: Chronic low back [...] 01-15-2023 Refill Yoseph emmanuel MD Work Phone: [facility] [place] Comment on above: Refill Request Start: 12-29-2022 Refill Yoseph emmanuel MD Work Phone: Family [facility] [place] Comment on above: Refill Request Start: 12-10-2022 Telephone encounter Yoseph lei MD Work Phone: Family [facility] [place] Comment on above: Orders Start: 11-06-2022 Refill Nelson BOWMAN RN.[facility] Work Phone: Family [facility] [place] Comment on above: Refill Request Start: 11-05-2022 Refill Nelson BOWMAN RN.[employer] Work Phone: [facility] [place] Comment on above: Refill Request Start: 08-21-2022 Telephone encounter Yoseph lei MD Work Phone: Family [facility] [place] Comment on above: Patient Request Start: 07-02-2022 Telephone encounter Yoseph lei MD Work Phone: Family [facility] [place] Comment on above: Forms (Incontinence supply form) Start: 06-29-2022 Refill Yoseph emmanuel MD Work Phone: [facility] [place] Comment on above: Refill Request Start: 06-08-2022 Refill Yoseph emmanuel MD Work Phone: [facility] [place] Comment on above: Refill Request Start: 05-15-2022 Refill Yoseph emmanuel MD Work Phone: [facility] [place] Comment on above: Refill Request Start: 05-05-2022 Refill Yoseph emmanuel MD Work Phone: [facility] [place] Comment on above: Refill Request Start: 05-01-2022 End: 05-01-2022 Distance Health Yoseph Fall MD Work Phone: [facility] [place] Comment on above: Stage 3 severe COPD by GOLD classification ([facility]) (Primary Dx); Chronic low back pain with sciatica, sciatica laterality unspecified, unspecified back pain laterality; Chronic respiratory failure with hypoxia ([facility]); Essential hypertension, benign; Generalized anxiety disorder; Tobacco use disorder Start: 04-21-2022 Refill Yoseph emmanuel MD Work Phone: [facility] [place] Comment on above: Refill Request Start: 02-27-2022 Telephone encounter Mercedez Zarate PA-C Work Phone: Pulmonary Medicine Comment on above: Orders Start: 02-20-2022 End: 02-20-2022 ambulatory Respiratory Therapist [facility] Work Phone: Pulmonary Medicine Comment on above: Spirometry Start: 02-20-2022 End: 02-20-2022 Patient encounter procedure Respiratory Therapist [facility] Work Phone: [facility] Start: 01-20-2022 Refill Yoseph emmanuel MD Work Phone: Family [facility] [place] Comment on above: Refill Request Start: 01-13-2022 Orders Only Michelle Guzmán MD Work Phone: Pulmonary Medicine Comment on above: Chronic obstructive pulmonary disease, unspecified COPD type (HCC) (Primary Dx) Start: 01-08-2022 Telephone encounter Michelle Guzmán MD Work Phone: Pulmonary Medicine Comment on above: Orders Start: 12-18-2021 Refill Yoseph emmanuel MD Work Phone: Family [facility] [place] Comment on above: Refill Request Start: 11-17-2021 Refill Yoseph emmanuel MD Work Phone: [facility] [place] Comment on above: Refill Request Start: 10-17-2021 End: 10-17-2021 Distance Health Yoseph Fall MD Work Phone: [facility] [place] Comment on above: Chronic obstructive pulmonary disease, unspecified COPD type (HCC) (Primary Dx); Chronic low back pain with sciatica, sciatica laterality unspecified, unspecified back pain laterality; Essential hypertension, benign; Uncomplicated asthma, unspecified asthma severity, unspecified whether persistent; Generalized anxiety disorder Start: 09-30-2021 Refill Yoseph emmanuel MD Work Phone: [facility] [place] Comment on above: Refill Request Start: 09-15-2021 Refill Yoseph emmanuel MD Work Phone: [facility] [place] Comment on above: Refill Request Start: 08-27-2021 Refill Yoseph emmanuel MD Work Phone: [facility] [place] Comment on above: Refill Request Start: 08-18-2021 Refill Yoseph emmanuel MD Work Phone: [facility] [place] Comment on above: Refill Request Start: 08-01-2021 Orders Only Yoseph emmanuel MD Work Phone: [facility] [place] Comment on above: Essential hypertensi on, benign (Primary Dx); Elevated glucose Procedures Date Procedure Procedure Detail Performing Clinician Start: 02-13-2025 Mean corpuscular hemoglobin concentration determination Dr. Yoseph Fall MD Work Phone: Start: 02-13-[address] Yoseph Fall MD Work Phone: Start: 02-13-2025 Nucleated red blood cell count procedure Dr. Yoseph Fall MD Work Phone: Start: 02-13-2025 Platelet mean volume determination Dr. Yoseph Fall MD Work Phone: Start: 02-06-2025 Mean corpuscular hemoglobin concentration determination Dr. Yoseph Fall MD Work Phone: Start: 02-06-[address] Yoseph Fall MD Work Phone: Start: 02-06-2025 Nucleated red blood cell count procedure Dr. Yoseph Fall MD Work Phone: Start: 02-06-2025 Platelet mean volume determination Dr. Yoseph Fall MD Work Phone: Start: 02-01-2025 Mean corpuscular hemoglobin concentration determination Dr. Yoseph Fall MD Work Phone: Start: 02-01-[address] Yoseph Fall MD Work Phone: Start: 02-01-2025 Nucleated red blood cell count procedure Dr. Yoseph Fall MD Work Phone: Start: 02-01-2025 Platelet mean volume determination Dr. Yoseph Fall MD Work Phone: Start: 02-01-2025 Vitamin D, 25-hydroxy measurement Dr. Jos Fall MD Work Phone: Start: 01-31-[address] Yoseph Fall MD Work Phone: Start: 01-31-2025 Mean corpuscular hemoglobin concentration determination Dr. Yoseph Fall MD Work Phone: Start: 01-31-[address] Yoseph Fall MD Work Phone: Start: 01-31-2025 Nucleated red blood cell count procedure Dr. Yoseph Fall MD Work Phone: Start: 01-31-2025 Platelet mean volume determination Dr. Yoseph Fall MD Work Phone: Start: 01-29-[address] Yoseph Fall MD Work Phone: Start: 01-27-2025 Carbon dioxide measurement, partial pressure Dr. Yoseph Fall MD Work Phone: Start: 01-27-2025 Measurement of partial pressure of oxygen in blood Dr. Yoseph Fall MD Work Phone: Start: 01-27-[address] Yoseph Fall MD Work Phone: Start: 01-27-[address] Yoseph anderson MD Work Phone: Start: 01-27-2025 Plain chest X-ray Dr. Yoseph Fall MD Work Phone: Start: 01-26-[address] Yoseph Fall MD Work Phone: Start: 01-26-2025 Plain X-ray abdomen Dr. Yoseph Fall MD Work Phone: Start: 01-26-2025 Plain chest X-ray Dr. Yoseph Fall MD Work Phone: Start: 01-26-2025 Calculation of international normalized ratio Dr. Yoseph Fall MD Work Phone: Start: 01-26-2025 Total iron binding capacity measurement Dr. Yoseph Fall MD Work Phone: Start: 01-25-[address] Yoseph Fall MD Work Phone: Start: 01-25-[address] Yoseph edward MD Work Phone: Start: 01-25-2025 Legionella pneumophila antigen assay Dr. Yoseph Fall MD Work Phone: Start: 01-25-[address] Yoseph anderson MD Work Phone: Start: 01-25-2025 End: 01-25-2025 Streptococcus pneumoniae antigen assay Dr. Yoseph Fall MD Work Phone: Start: 01-25-2025 Dr. Yoseph Fall MD Work Phone: Start: 01-25-2025 Carbon dioxide measurement, partial pressure Dr. Yoseph Fall MD Work Phone: Start: 01-25-2025 Measurement of partial pressure of oxygen in blood Dr. Ysoeph Fall MD Work Phone: Start: 01-25-[address] Yoseph Fall MD Work Phone: Start: 01-25-[address] Yoseph anderson MD Work Phone: Start: 01-25-2025 Urine microscopy: red cells Dr. Yoseph lei MD Work Phone: Start: 01-25-2025 Urnls dip stick/tablet reagent auto microscopy Dr. Yoseph Fall MD Work Phone: Start: 01-25-2025 Plain chest X-ray Dr. Yoseph Fall MD Work Phone: Start: 01-25-2025 CT angiography of chest with contrast Dr. Yoseph Fall MD Work Phone: Start: 01-25-2025 CT of head without contrast Dr. Yoseph lei MD Work Phone: Start: 01-25-[address] Yoseph emmanuel MD Work Phone: Start: 01-25-[address] Yoseph Fall MD Work Phone: Start: 01-25-2025 Mean corpuscular hemoglobin concentration determination Dr. Yoseph Fall MD Work Phone: Start: 01-25-[address] Yoseph Fall MD Work Phone: Start: 01-25-2025 Nucleated red blood cell count procedure Dr. Yoseph Fall MD Work Phone: Start: 01-25-2025 Platelet mean volume determination Dr. Yoseph Fall MD Work Phone: Start: 01-25-2025 Serum inorganic phosphate measurement Dr. Yoseph Fall MD Work Phone: Start: 01-25-[address] Yoseph gallo MD Work Phone: Start: 01-05-2025 Cardiac catheterization study Zaria lyn MD Work Phone: Start: 12-30-[address] Yoseph Fall MD Work Phone: Start: 12-30-2024 Mean corpuscular hemoglobin concentration determination Dr. Yoseph Fall MD Work Phone: Start: 12-30-[address] Yoseph Fall MD Work Phone: Start: 12-30-2024 Nucleated red blood cell count procedure Dr. Yoseph Fall MD Work Phone: Start: 12-30-2024 Platelet mean volume determination Dr. Yoseph Fall MD Work Phone: Start: 12-28-[address] Yoseph plascencia MD Work Phone: Start: 12-27-[address] Yoseph Fall MD Work Phone: Start: 12-27-2024 Total iron binding capacity measurement Dr. Yoseph Fall MD Work Phone: Start: 12-26-[address] Yoseph plascencia MD Work Phone: Start: 12-26-[address] Yoseph Fall MD Work Phone: [...] Fall MD Work Phone: Start: 12-26-[address] Yoseph anderson MD Work Phone: Start: 12-26-[address] Yoseph Fall MD Work Phone: Start: 12-26-2024 Plain chest X-ray Dr. Yoseph Fall MD Work Phone: Start: 12-26-[address] Ysoeph edward MD Work Phone: Start: 12-26-2024 Nucleic [...] Dr. Yoseph Fall MD Work Phone: Start: 10-09-2024 Mean corpuscular hemoglobin concentration determination Dr. Yoseph Fall MD Work Phone: Start: 10-09-[address] Yoseph Fall MD Work Phone: Start: 10-09-2024 Nucleated red blood cell count procedure Dr. Yoseph Fall MD Work Phone: Start: 10-09-2024 Platelet mean volume determination Dr. Yoseph Fall MD Work Phone: Start: 09-29-[address] Yoseph edward MD Work Phone: Start: 09-29-[address] Yoseph Fall MD Work Phone: Start: 09-29-[address] Yoseph anderson MD Work Phone: Start: 09-29-2024 SARS-CoV-2, Influenza & RSV (PCR) Dr. Jos Fall MD Work Phone: Start: 09-29-2024 Dr. Yoseph Fall MD Work Phone: Start: 09-29-2024 Carbon dioxide measurement, partial pressure Dr. Yoseph Fall MD Work Phone: Start: 09-29-2024 Gases blood o2 saturation only direct kadi Dr. Yoseph Fall MD Work Phone: Start: 09-29-2024 Measurement of partial pressure of oxygen in blood Dr. Yoseph Fall MD Work Phone: Start: 09-29-[address] Yoseph Fall MD Work Phone: Start: 09-29-[address] Yoseph anderson MD Work Phone: Start: 09-29-2024 X-ray of [...] - S avelino or Plasma Lipid Screening [facility] Start: 02-20-2028 Lipid panel [facility] Start: 02-19-2026 Diabetes Screening Diabetes Screenin g [facility] Start: 10-17-2025 Annual PCP Team Separator Inserter kristyn Disease Visit Annual PCP Team Chronic Disease Visit [facility] Start: 07-06-2025 Annual PCP Team Separator Inserter krisytn Disease Visit Annual PCP Team Chronic Disease Visit [facility] Start: 07-06-2025 Screening for malign ant neoplasm of breast Mammogram Screening [facility] Comment on above: Postponed from 10/16 (Declined at this time) Start: 04-07-2025 Annual PCP Team Separator Inserter kristyn Disease Visit Annual PCP Team Chronic Disease Visit [facility] Start: 02-13-2025 [facility] Start: 02-08-2025 End: 02-08-2025 Evaluation of diagnostic study results [facility] Start: 01-31-2025 Patient discharge [facility] Start: 01-30-2025 Enteric precautions [facility] Start: 01-29-2025 Oxygen therapy [facility] Start: 01-29-2025 Inhalation therapy procedure [facility] Start: 01-29-2025 Physiotherapy of chest [facility] Start: 01-28-2025 Speech therapy assessment [facility] Start: 01-28-2025 Care planning and pr oblem solving actions [facility] Start: 01-27-2025 Continuous pulse oximetry [facility] Start: 01-27-2025 Dual pressure sponta neous ventilation support [facility] Start: 01-26-2025 End: 01-27-2025 [facility] Start: 01-26-2025 Administration of bl ood product [facility] Start: 01-26-2025 Gas panel - Arterial blood [facility] Start: 01-26-2025 Transfusion of red b lood cells [facility] Start: 01-25-2025 Application of intermittent pneumatic compression device [facility] Start: 01-25-2025 Assessment of risk o f venous thromboembolism [facility] Start: 01-25-2025 Consultation [facility] Start: 01-25-2025 Continuous pulse oximetry [facility] Start: 01-25-2025 Elevation of head of bed [facility] Start: 01-25-2025 Insertion of cathete r into peripheral vein [facility] Start: 01-25-2025 Measuring intake and output [facility] Start: 01-25-2025 Patient education [facility] Start: 01-25-2025 Providing care accor ding to standard [facility] Start: 01-25-2025 Referral for physica l therapy [facility] Start: 01-25-2025 Referral to occupati onal therapist [facility] Start: 01-25-2025 Vital signs measurements [facility] Start: 01-25-2025 [facility] Start: 01-25-2025 Following clinical p athway protocol [facility] Start: 01-25-2025 [facility] Start: 01-25-2025 Airway suction technique [facility] Start: 01-25-2025 Verification [facility] Start: 01-25-2025 Hospital admission, emergency, from emergency room, medical nature [facility] Start: 01-25-2025 Admission procedure [facility] Start: 01-25-2025 Consultation [facility] Start: 01-25-2025 Creatine kinase [Enz ymatic activity/volume] in Serum or Plasma [facility] Start: 01-25-2025 Triglycerides measurement [facility] Start: 01-25-2025 End: 01-25-2025 [facility] Start: 01-25-2025 Patient referral to dietitian [facility] Start: 01-25-2025 [facility] Start: 01-23-2025 End: 01-23-2025 ambulatory 01/23/2025 9:00 AM EDT [employer] [address] [place] [id number] Gregor Fernandez APRN.[facility] [address] [place] [id number] 2 month@2month [employer] Comment on above: [id number] 2 month@2month Start: 01-19-2025 End: 01-19-2025 Follow-up encounter 01/19/2025 2:20 PM EDT [facility] [address] [place], [place] [id number] Yoseph Fall MD [address] [place], [place] [phone] CALL PT 3 month follow up [facility] Comment on above: CALL PT 3 month foll ow up Start: 01-19-2025 End: 01-19-2025 Patient encounter procedure [facility] [place] Comment on above: 3 month follow up 3 month follow up/ p rocedure follow up of heart cath[facility] 01/05/25 Start: 01-05-2025 End: 01-05-2026 Basic metabolic 1998 panel - Serum or Plasma Basic metabolic panel Lab Routine Aortic valve stenosis, etiology of cardiac valve disease unspecified Expected: 01/05/2025 (Approximate), Expires: 01/05/2026 [facility] Work Phone: Comment on above: Expected: 01/05/2025 (Approximate), Expires: 01/05/2026 Start: 01-05-2025 End: 01-05-2025 Admission to same day surgery center 01/05/2025 10:00 AM EDT - 01/05/2025 11:00 AM EDT Surgery [facility] [address] [place] [address] [phone] Zaria Shea MD [address] [place] [address] Left and right heart cath / coronary angiography [facility] Comment on above: Left and right heart cath / coronary angiography Start: 01-05-2025 Subsequent hospital visit by physician 01/05/2025 10:00 AM EDT Hospital Encounter [facility] [address] [place] [phone] Zaria Shea MD [address] [place] [address] Preop cardiovascular exam [facility] Comment on above: Preop cardiovascular exam Start: 12-30-2024 Patient discharge [facility] Start: 12-28-2024 Referral to service [facility] Start: 12-27-2024 Referral to gastroenterology service [facility] Start: 12-27-2024 [facility] Start: 12-27-2024 Referral to service [facility] Start: 12-27-2024 Palliative care [facility] Start: 12-26-2024 Following clinical p athway protocol [facility] Start: 12-26-2024 Application of intermittent pneumatic compression device [facility] Start: 12-26-2024 Assessment of risk o f venous thromboembolism [facility] Start: 12-26-2024 Continuous pulse oximetry [facility] Start: 12-26-2024 Fall prevention [facility] Start: 12-26-2024 Inhalation therapy procedure [facility] Start: 12-26-2024 Insertion of cathete r into peripheral vein [facility] Start: 12-26-2024 Introduction of urin asher catheter [facility] Start: 12-26-2024 Measuring intake and output [facility] Start: 12-26-2024 Oxygen therapy [facility] Start: 12-26-2024 Physiotherapy of chest [facility] Start: 12-26-2024 Providing care accor ding to standard [facility] Start: 12-26-2024 Provision of activit y privileges [facility] Start: 12-26-2024 Referral to service [facility] Start: 12-26-2024 [facility] Start: 12-26-2024 Dual pressure sponta neous ventilation support [facility] Start: 12-26-2024 Gas panel - Arterial blood [facility] Start: 12-26-2024 Measurement of occul t blood in stool specimen using immunoassay [facility] Start: 12-26-2024 Verification routine [facility] Start: 12-26-2024 Admission procedure [facility] Start: 12-26-2024 Hospital admission, emergency, from emergency room, medical nature [facility] Start: 12-26-2024 End: 12-26-2024 [facility] Start: 12-25-2024 COVID-19 Vaccine ( season) COVID-19 Vaccine ( season) [facility] Start: 12-25-2024 Influenza vaccination [facility] Start: 12-22-2024 Subsequent hospital visit by physician 12/22/2024 Hospital Encounter [facility] [address] [place] [id number] Zaria Shea MD [address] [place] [id number] [facility] Start: 12-15-2024 End: 12-15-2024 Patient encounter procedure [facility] Cardiology [facility] Start: 11-28-2024 Annual PCP Team Separator Inserter kristyn Disease Visit Annual PCP Team Chronic Disease Visit [facility] Start: 11-23-2024 End: 11-23-2024 ambulatory 11/23/2024 9:00 AM EDT [employer] [address] [place] [address] [address] [place] [address] Gregor Fernandez APRN.[facility] [address] [place] [id number] confirmed 11/21/24 [employer] Comment on above: [id number] confirmed 10/25 01/18 mp Start: 11-08-2024 End: 11-08-2024 ambulatory 11/08/2024 2:30 PM EDT [facility] [address] [place] [id number] Haylee Carter, DESIGN ENGINEER [employer] [address] [place] [id number] [employer] Comment on above: [id number] Start: 10-17-2024 End: 10-17-2024 Patient encounter procedure 10/17/2024 2:20 PM EDT Office Visit [facility] [place] [address] [place] [address] Yoseph Fall MD [address] [place], [place] [id number] Discharged 10/09/24 [facility] - COPD exacerbation [facility] Comment on above: Discharged 10/09/24 [facility] - COPD exacerbation Start: 10-09-2024 Patient discharge [facility] Start: 10-06-2024 End: 10-06-2024 Referral to service [facility] Start: 10-04-2024 Referral for physica l therapy [facility] Start: 10-04-2024 Referral to occupati onal therapist [facility] Start: 10-04-2024 Referral to service [facility] Start: 10-03-2024 Care planning and pr oblem solving actions [facility] Start: 10-03-2024 [facility] Start: 10-02-2024 Care planning and pr oblem solving actions [facility] Start: 10-02-2024 Referral to shirt bander [facility] Start: 10-02-2024 [facility] Start: 09-29-2024 Admission procedure [facility] Start: 09-29-2024 Following clinical p athway protocol [facility] Start: 09-29-2024 Assessment of risk o f venous thromboembolism [facility] Start: 09-29-2024 Inhalation therapy procedure [facility] [facility] Start: 09-29-2024 Insertion of cathete r into peripheral vein [facility] Start: 09-29-2024 Introduction of urin asher catheter [facility] Start: 09-29-2024 Measuring intake and output [facility] Start: 09-29-2024 Oxygen therapy [facility] Start: 09-29-2024 Providing care accor ding to standard [facility] Start: 09-29-2024 Provision of activit y privileges [facility] Start: 09-29-2024 Referral to service [facility] Start: 09-29-2024 [facility] Start: 09-29-2024 Respiratory pathogen s DNA and RNA panel - Respiratory specimen by ASPEN with probe detection [facility] Start: 09-29-2024 [facility] Start: 09-29-2024 Admission procedure [facility] Start: 09-29-2024 Hospital admission, emergency, from emergency room, medical nature [facility] Start: 08-22-2024 Annual PCP Team Separator Inserter kristyn Disease Visit Annual PCP Team Chronic Disease Visit [facility] Start: 07-25-2024 Annual PCP Team Separator Inserter kristyn Disease Visit Annual PCP Team Chronic Disease Visit [facility] Start: 07-12-2024 DIABETES SCREEN DIABETES SCREEN [facility] Start: 07-12-2024 Diabetes Screening Diabetes Screenin g [facility] Start: 07-06-2024 End: 07-06-2024 ambulatory 07/06/2024 2:00 PM EDT [facility] [address] [place] [address] Yoseph Fall MD [address] [place] [address] 3 mo f/u - Phone visit Family [facility] Comment on above: 3 mo f/u - Phone vis it Start: 05-24-2024 Annual PCP Team Separator Inserter kristyn Disease Visit Annual PCP Team Chronic Disease Visit [facility] Start: 04-26-2024 Advance Directive Discussion Advance Directive Discussion [facility] Start: 04-26-2024 Medicare Advantage A nnual Wellness Visit Medicare Advantage Annual Wellness Visit [facility] Start: 04-07-2024 End: 04-07-2024 Telephone follow-up 04/07/2024 8:40 AM EST [facility] [address] [facility] [place] [address] Yoseph Fall MD [address] [facility] [place] [place] [address] phone call 4 month follow up [facility] [place] Comment on above: phone call 4 month f ollow up Start: 02-20-2024 Annual PCP Team Separator Inserter kristyn Disease Visit Annual PCP Team Chronic Disease Visit [facility] Start: 02-20-2024 Diabetes mellitus screening Diabetes Screening [facility] Start: 02-09-2024 Lipid 1996 panel - S avelino or Plasma Lipid Screening [facility] Start: 02-09-2024 LIPID SCREEN LIPID SCREEN [facility] Start: 01-25-2024 Colorectal Cancer Screening Colorectal Cancer Screening [facility] Start: 01-25-2024 Fecal Occult Blood Fecal Occult Bloo d [facility] Start: 01-25-2024 Screening for malign ant neoplasm of colon [facility] Start: 12-26-2023 Covid-19 Vaccine () Covid-19 Vaccine () [facility] Start: 12-26-2023 Influenza vaccination Influenza Vacc ine (#1) [facility] Start: 11-29-2023 End: 11-29-2023 Telephone follow-up 11/29/2023 5:40 PM EDT [facility] [address] [place] [address] Yoseph Fall MD [address] [place] [address] phone call-3 month follow up Family [facility] Comment on above: phone call-3 month f ollow up Start: 11-23-2023 End: 11-23-2023 Telephone follow-up 11/23/2023 3:00 PM EDT [facility] [address] [place], [place] [id number] Yoseph Fall MD [address] [facility] [place] [place] [address] phone call-3 month follow up Family [facility] Comment on above: phone call-3 month f ollow up Start: 11-14-2023 ANNUAL PCP TEAM ARCHITECTURAL SUPERINTENDENT KRISTYN DISEASE VISIT ANNUAL PCP TEAM CHRONIC DISEASE VISIT [facility] Start: 10-25-2023 DTaP/Tdap/Td Vaccine s (2 - Td or Tdap) DTaP/Tdap/Td Vaccines (2 - Td or Tdap) [facility] Start: 10-25-2023 Urine microalbumin profile [facility] Start: 08-08-2023 ANNUAL PCP TEAM ARCHITECTURAL SUPERINTENDENT KRISTYN DISEASE VISIT ANNUAL PCP TEAM CHRONIC DISEASE VISIT [facility] Start: 07-22-2023 Patient discharge [facility] Start: 07-21-2023 Respiratory microbia l culture Respiratory Culture [facility] Start: 07-20-2023 Thyroid stimulating hormone measurement [facility] Start: 07-20-2023 [facility] Start: 07-20-2023 Following clinical p athway protocol [facility] Start: 07-20-2023 Assessment of risk o f venous thromboembolism [facility] Start: 07-20-2023 Contact precautions [facility] Start: 07-20-2023 Incentive spirometry [facility] Start: 07-20-2023 Insertion of cathete r into peripheral vein [facility] Start: 07-20-2023 Measuring intake and output [facility] Start: 07-20-2023 Oxygen therapy [facility] Start: 07-20-2023 Providing care accor ding to standard [facility] Start: 07-20-2023 Provision of activit y privileges [facility] Start: 07-20-2023 Referral to service [facility] Start: 07-20-2023 Respiratory secretio n precautions [facility] Start: 07-20-2023 Respiratory therapy [facility] Start: 07-20-2023 Tobacco use cessatio n education [facility] Start: 07-20-2023 [facility] Start: 07-20-2023 Verification routine [facility] Start: 07-20-2023 Admission procedure [facility] Start: 07-20-2023 Patient referral to dietitian [facility] Start: 05-01-2023 ANNUAL PCP TEAM ARCHITECTURAL SUPERINTENDENT KRISTYN DISEASE VISIT ANNUAL PCP TEAM CHRONIC DISEASE VISIT [facility] Start: 04-26-2023 Advance Directive Discussion Advance Directive Discussion [facility] Start: 02-19-2023 End: 05-21-2023 CBC W Auto Differential panel - Blood [facility] Work Phone: Comment on above: Expected: 02/19/2023 , Expires: 05/21/2023 Start: 02-19-2023 End: 05-21-2023 Comprehensive metabolic 2000 panel - Serum or Plasma [facility] Work Phone: Comment on above: Expected: 02/19/2023 (Approximate), Expires: 05/21/2023 Start: 02-19-2023 End: 05-21-2023 Hemoglobin A1c in Blood [facility] Work Phone: Comment on above: Expected: 02/19/2023 , Expires: 05/21/2023 Start: 02-19-2023 End: 05-21-2023 LIPID PANEL, NONFASTING [facility] Work Phone: Comment on above: Expected: 02/19/2023 , Expires: 05/21/2023 Start: 02-19-2023 End: 05-21-2023 PAIN PANEL, UR QUANT [facility] Work Phone: Comment on above: Expected: 02/19/2023 , Expires: 05/21/2023 Start: 02-19-2023 End: 05-21-2023 TOX SCREEN ROUT UR [facility] Work Phone: Comment on above: Expected: 02/19/2023 , Expires: 05/21/2023 Start: 01-23-2023 ANNUAL PCP TEAM ARCHITECTURAL SUPERINTENDENT KRISTYN DISEASE VISIT ANNUAL PCP TEAM CHRONIC DISEASE VISIT [facility] Start: 12-25-2022 Covid-19 Vaccine ( season) Covid-19 Vaccine ( season) [facility] Start: 12-25-2022 Influenza vaccination [facility] Start: 10-17-2022 ANNUAL PCP TEAM ARCHITECTURAL SUPERINTENDENT KRISTYN DISEASE VISIT ANNUAL PCP TEAM CHRONIC DISEASE VISIT [facility] Start: 08-21-2022 COVID-19 VACCINE (5 - Moderna series) COVID-19 VACCINE (5 - Moderna series) [facility] Start: 07-17-2022 ANNUAL PCP TEAM ARCHITECTURAL SUPERINTENDENT KRISTYN DISEASE VISIT ANNUAL PCP TEAM CHRONIC DISEASE VISIT [facility] Start: 07-17-2022 BP CONTROLLED (<130/80) BP CONTROLLE D (<130/80) [facility] Start: 04-26-2022 ADVANCE DIRECTIVE DISCUSSION ADVANCE DIRECTIVE DISCUSSION [facility] Start: 12-25-2021 Influenza vaccination C [facility] Start: 12-12-2021 COVID-19 VACCINE (4 - Booster for Moderna series) COVID-19 VACCINE (4 - Booster for Moderna series) [facility] Start: 10-06-2021 COVID-19 VACCINE (3 - Booster for Moderna series) COVID-19 VACCINE (3 - Booster for Moderna series) [facility] Start: 08-01-2021 End: 10-01-2021 LIPID PANEL BASIC LIPID PANEL BASIC Lab Routine Essential hypertension, benign Elevated glucose Expected: 08/01/2021, Expires: 10/01/2021 [facility] Work Phone: Comment on above: Expected: 08/01/2021 , Expires: 10/01/2021 Start: 07-03-2021 COVID-19 VACCINE (3 - Booster for Moderna series) COVID-19 VACCINE (3 - Booster for Moderna series) [facility] Start: 2020 BONE DENSITY BONE DENSITY [facility] Start: 2020 Bone Density Screening Bone Density Screening [facility] Start: 2020 Screening for osteoporosis Bone Dens ity Screening [facility] Start: 02-14-2020 COLORECTAL CANCER SCREENING COLORECTAL CANCER SCREENING [facility] Start: 02-14-2020 FECAL OCCULT BLOOD FECAL OCCULT BLOO D [facility] Start: 10-16-2016 Mammography [facility] Start: 10-16-2016 Screening for malign ant neoplasm of breast Mammogram Screening [facility] Start: 10-24-2015 PAP TESTING PAP TESTING [facility] Start: 10-24-2015 Screening for malign ant neoplasm of cervix [facility] Start: 2015 RSV Immunization for Adults (1 - Risk 60-74 years 1-dose series) RSV Immunization for Adults (1 - Risk 60-74 years 1-dose series) [facility] Start: 2015 RSV Vaccine (1 - 1-d ose 60+ series) RSV Vaccine (1 - 1-dose 60+ series) [facility] Start: 2015 RSV Vaccine (1 - Ris k 60-74 years 1-dose series) RSV Vaccine (1 - Risk 60-74 years 1-dose series) [facility] Start: 2005 SHINGRIX VACCINE (1 of 2) CASTANON GRIX VACCINE (1 of 2) [facility] Start: 2005 Zoster Vaccines (1 of 2) Zoste r Vaccines (1 of 2) [facility] Start: 2000 COLOGUARD (FIT-DNA) COLOGUARD (FIT-D NA) [facility] Start: 2000 Colonoscopy COLONOSCOPY [facility] Start: [address] COLONOGRAPHY [facility] Start: 2000 Screening for malign ant neoplasm of colon [facility] Start: 2000 SIGMOIDOSCOPY SIGMOIDOSCOPY [facility] Start: 1995 Screening for malign ant neoplasm of breast Mammogram [facility] Start: 1985 Zoledronic acid therapy ALPHA- 1 ANTITRYPSIN DEFICIENCY SCREENING [facility] Start: 1973 BP CONTROLLED (<130/80) BP CONTROLLE D (<130/80) [facility] Start: 1973 Diabetes mellitus screening Diabetes Screening [facility] Start: 1973 Hepatitis C screening Hepatitis C Sc reening [facility] Start: 1967 Depression Monitoring Depression Mon itoring [facility] Start: 1955 Screening for malign ant neoplasm of colon [facility] Start: 1955 Screening for osteoporosis Bone Dens ity Scan [facility] Alanine aminotransfe rase [Enzymatic activity/volume] in Serum or Plasma [facility] Albumin [Mass/volume ] in Serum or Plasma [facility] Alkaline phosphatase [Enzymatic activity/volume] in Serum or Plasma [facility] Anion gap in Serum o r Plasma [facility] Anion gap measurement [facility] Aspartate aminotrans ferase [Enzymatic activity/volume] in Serum or Plasma [facility] Bacteria identified in Sputum by Respiratory culture [facility] Bilirubin measuremen t, urine [facility] Bilirubin, total measurement [facility] BUN/Creatinine ratio [facility] BUN/Creatinine ratio [facility] Calcium [Mass/volume ] in Serum or Plasma [facility] Calcium [Mass/volume ] in Serum or Plasma [facility] Carbon dioxide, tota l [Moles/volume] in Central venous blood [facility] Carbon dioxide, tota l [Moles/volume] in Serum or Plasma [facility] Cardiac catheterizat ion study Cardiac procedure CV Cardiac Cath Routine Preop cardiovascular exam 01/05/2025 12:21 PM EDT [facility] Work Phone: Chloride [Moles/volu me] in Serum or Plasma [facility] COLOGUARD COLOGUARD Lab Ro utine Screening for colon cancer Ordered: 07/06/2024 [facility] Work Phone: Comment on above: Ordered: 07/06/2024 Creatinine [Mass/vol ume] in Serum or Plasma [facility] Creatinine [Moles/vo lume] in Serum or Plasma [facility] End: 06-15-2025 DBT Breast - bilateral screening MICKIE SCREENING W RASHAUN Radiology Routine Encounter for screening mammogram for breast cancer 1 Occurrences starting 05/16/2024 until 06/15/2025 [facility] Work Phone: Comment on above: 1 Occurrences starti ng 05/16/2024 until 06/15/2025 ECG 12 lead - CLINIC PERFORMED ECG 12 lead - CLINIC PERFORMED CV ECG Routine Preop cardiovascular exam 12/15/2024 2:38 PM EDT [facility] Work Phone: Erythrocyte mean corpuscular volume determination [facility] Erythrocyte mean corpuscular volume determination [facility] Ferritin [Mass/volum e] in Serum or Plasma [facility] Glucose [Mass/volume ] in Serum or Plasma [facility] Glucose [Mass/volume ] in Serum or Plasma [facility] Hematocrit [Volume Fraction] of Blood [facility] Hematocrit [Volume Fraction] of Blood [facility] Hemoglobin [Mass/vol ume] in Blood [facility] Hemoglobin [Mass/vol ume] in Blood [facility] Hemoglobin [Presence ] in Urine [facility] Iron [Mass/mass] in Unspecified specimen [facility] Iron saturation [Mas s Fraction] in Serum or Plasma [facility] LEFT AND RIGHT HEART CATH / CORONARY ANGIOGRAPHY LEFT AND RIGHT HEART CATH / CORONARY ANGIOGRAPHY Preop cardiovascular exam [facility] Leukocytes [#/volume ] in Blood [facility] Leukocytes [#/volume ] in Blood [facility] Magnesium [Mass/volu me] in Serum or Plasma [facility] Magnesium measurement [facility] Mean corpuscular hemoglobin concentration determination [facility] Mean corpuscular hemoglobin concentration determination [facility] Mean corpuscular hemoglobin determination [facility] Mean corpuscular hemoglobin determination [facility] Measurement of keton es in urine using dipstick [facility] Measurement of renal function [facility] Measurement of renal function [facility] End: 07-15-2024 MG Breast Screening MICKIE SCREENING Radiology Routine Encounter for screening mammogram for breast cancer 1 Occurrences starting 06/16/2023 until 07/15/2024 [facility] Work Phone: Comment on above: 1 Occurrences starti ng 06/16/2023 until 07/15/2024 Microscopic observat ion [Identifier] in Unspecified specimen by Gram stain [facility] Microscopic urinalysis [facility] Neutrophil count [facility] Neutrophil count [facility] Neutrophil percent differential count [facility] Neutrophil percent differential count [facility] End: 02-12-2023 OXIMETRY WITH AMBULATION OXIMETRY WITH AMBULATION PFT Routine Chronic obstructive pulmonary disease, unspecified COPD type (HCC) 1 Occurrences starting 01/13/2022 until 02/12/2023 [facility] Work Phone: Comment on above: 1 Occurrences starti ng 01/13/2022 until 02/12/2023 Patient Education [facility] Work Phone: Patient referral [facility] Work Phone: pH of Urine [facility] Platelets [#/volume] in Blood [facility] Platelets [#/volume] in Blood [facility] Potassium [Moles/vol ume] in Serum or Plasma [facility] Potassium measurement [facility] Red blood cell count [facility] Red blood cell count [facility] Red cell distributio n width determination [facility] Red cell distributio n width determination [facility] Respiratory pathogen s DNA and RNA panel - Respiratory specimen by ASPEN with probe detection [facility] Serum chloride measurement [facility] Serum inorganic phos phate measurement [facility] Sodium [Moles/volume ] in Serum or Plasma [facility] Sodium measurement [facility] Specific gravity of Urine [facility] Total iron binding capacity measurement [facility] Total protein measurement [facility] TRANSCATHETER AORTIC VALVE REPLACEMENT (TAVR) TRANSCATHETER AORTIC VALVE REPLACEMENT (TAVR) Aortic valve stenosis, etiology of cardiac valve disease unspecified [facility] Troponin T.cardiac [Mass/volume] in Serum or Plasma by High sensitivity method [facility] Troponin T.cardiac [Mass/volume] in Serum or Plasma by High sensitivity method [facility] Urea nitrogen [Mass/volume] in Serum or Plasma [facility] Urea nitrogen [Mass/volume] in Serum or Plasma [facility] Urine blood test [facility] Urine dipstick for glucose W [facility] Urine dipstick for leukocyte esterase [facility] Urine dipstick for nitrite W [facility] Urine dipstick for protein [facility] Urine examination [facility] Urine microscopy: epithelial cells [facility] Urine Microscopy: wh ite cells [facility] Urobilinogen [Presen ce] in Urine [facility] Immunizations Immunization Date Immunization Notes Care Provider [facility] 02-19-2023 influenza (HD-IIV4) vaccine, age 65+ yr, high dose, quadrivalent, PF (FLUZONE HIGH-DOSE) Yoseph Fall MD Work Phone: [facility] 02-19-2023 influenza virus vacc ine, unspecified formulation Yoseph Fall MD Work Phone: [facility] 07-17-2021 pneumococcal polysaccharide vaccine, 23 valent Yoseph Fall MD Work Phone: [facility] 02-08-2019 influenza, injectabl e, quadrivalent, contains preservative Yoseph Fall MD Work Phone: [facility] 02-08-2019 influenza virus vacc ine, unspecified formulation Yoseph Fall MD Work Phone: [facility] 05-11-2018 influenza, injectabl e, quadrivalent, contains preservative Yoseph Fall MD Work Phone: [facility] 09-24-2017 pneumococcal conjuga te vaccine, 13 valent Yoseph Fall MD Work Phone: [facility] 02-25-2016 influenza, seasonal, injectable Yoseph Fall MD Work Phone: [facility] Work Phone: 10-24-2013 tetanus toxoid, redu ani diphtheria toxoid, and acellular pertussis vaccine, adsorbed Yoseph Fall MD Work Phone: [facility] 10-22-2013 tetanus toxoid, redu ani diphtheria toxoid, and acellular pertussis vaccine, adsorbed [facility] 03-13-2013 influenza virus vacc ine, unspecified formulation Yoseph Fall MD Work Phone: [facility] 03-09-2013 Influenza virus vaccine W [facility] 03-09-2013 Dr. Yoseph camacho MD Work Phone: [facility] 03-21-2012 pneumococcal polysaccharide vaccine, 23 valent Yoseph Fall MD Work Phone: [facility] 03-21-2012 pneumococcal vaccine , unspecified formulation [facility] 03-17-2010 pneumococcal polysaccharide vaccine, 23 valent Yoseph Fall MD Work Phone: [facility] Work Phone: 03-03-2010 influenza virus vacc ine, unspecified formulation Yoseph Fall MD Work Phone: [facility] 02-10-2008 influenza virus vacc ine, unspecified formulation Yoseph Fall MD Work Phone: [facility] 03-22-2007 influenza virus vacc ine, unspecified formulation Yoseph Fall MD Work Phone: [facility] Work Phone: 04-14-2005 influenza virus vacc ine, unspecified formulation Yoseph Fall MD Work Phone: [facility] Work Phone: 04-13-2005 pneumococcal polysaccharide vaccine, 23 valent Yoseph Fall MD Work Phone: [facility] Work Phone: Payers Date Payer Category Payer Self-pay [id number] 2024 Unknown [id number] 2017 Medicaid [id number] 2017 Medicare [id number] 2017 Medicare [id number]. [id number] 2017 Medicare (Managed Care) [facility] [id number] 2017 Medicare HMO [id number] 2015 Unknown [id number] Unknown [id number] 2.16840.1.890223.3.579.2. 462 Unknown [id number] 2.16840.1.248386.3.579.2. 462 Unknown [id number] 2.16.840.1.595050.3.579.2. 462 Unknown [id number] 2.16.840.1.927630.3.579.2. 462 Unknown [id number] 2.16.840.1.657417.3.579.2. 462 Unknown [id number] 2.16.840.1.253693.3.579.2. 462 Unknown [id number] 2.16.840.1.041475.3.579.2. 462 Unknown [id number] 2.16.840.1.511694.3.579.2. 462 Unknown [id number] 2.16.840.1.707970.3.579.2. 462 Unknown [id number] 2.16.840.1.180836.3.579.2. 462 Unknown [id number] 2.16.840.1.658948.3.579.2. 462 Unknown [id number] 2.16.840.1.267479.3.579.2. 462 Unknown [id number] 2.16.840.1.259810.3.579.2. 462 Unknown [id number] 2.16.840.1.224058.3.579.2. 462 Unknown [id number] 2.16.840.1.461340.3.579.2. 462 Unknown [id number] 2.16.840.1.728907.3.579.2. 462 Unknown [id number] 2.16.840.1.905456.3.579.2. 462 Unknown [id number] 2.16.840.1.117858.3.579.2. 462 Unknown [id number] 2.16.840.1.771108.3.579.2. 462 Unknown [id number] 2.16.840.1.006634.3.579.2. 462 Unknown [id number] 2.16.840.1.472813.3.579.2. 462 Unknown [id number] 2.16.840.1.239856.3.579.2. 462 Unknown [id number] 2.16.840.1.332623.3.579.2. 462 Unknown [id number] 2.16.840.1.331107.3.579.2. 462 Unknown [id number] 2.16.840.1.224338.3.579.2. 462 Unknown [id number] 2.16.840.1.368251.3.579.2. 462 Unknown [id number] 2.16840.1.131385.3.579.2. 462 Unknown [id number] 2.16840.1.875727.3.579.2. 462 Unknown [id number] 2.16840.1.768369.3.579.2. 462 Unknown [id number] 2.16840.1.940092.3.579.2. 462 Unknown [id number] 2.16840.1.293033.3.579.2. 462 Unknown [id number] 2.16840.1.609336.3.579.2. 462 Unknown [id number] 2.16840.1.238839.3.579.2. 462 Unknown [id number] 2.16840.1.817816.3.579.2. 462 Unknown [id number] 2.16.840.1.311571.3.579.2. 462 Unknown [id number] 2.16.840.1.239308.3.579.2. 462 Unknown [id number] 2.16.840.1.447886.3.579.2. 462 Unknown [id number] 2.16.840.1.716384.3.579.2. 462 Unknown [id number] 2.16840.1.590629.3.579.2. 462 Unknown [id number] 2.16.840.1.316157.3.579.2. 462 Unknown [id number] 2.16.840.1.646412.3.579.2. 462 Unknown [id number] 2.16.840.1.224983.3.579.2. 462 Unknown [id number] 2.16.840.1.100282.3.579.2. 462 Unknown [id number] 2.16.840.1.204833.3.579.2. 462 Unknown [id number] 2.16.840.1.291130.3.579.2. 462 Unknown [id number] 2.16.840.1.997805.3.579.2. 462 Unknown [id number] 2.16.840.1.613083.3.579.2. 462 Unknown [id number] 2.16.840.1.335907.3.579.2. 462 Unknown [id number] 2.16.840.1.034971.3.579.2. 462 Social History Date Type Detail Facility Start: 1969 End: 04-07-2024 Tobacco smoking status NHIS Smokes tobacco daily [facility] Work Phone: Start: 1969 History of tobacco use Cigarette Smo ker [facility] Work Phone: Start: 07-17-2021 End: 11-22-2024 Alcohol intake Current drinker of alcohol (finding) [facility] Start: 10-23-2014 History SDOH Alcohol Comment 12 drinks per week [facility] Start: 1955 Sex Assigned At Not on file [facility] Start: 07-07-2021 End: 10-17-2021 Exposure to SARS-CoV-2 (event) Not sure [facility] Start: 12-07-2019 End: 11-13-2022 Cigarettes smoked current (pack per day) - Reported 1 [facility] Start: 12-07-2019 End: 10-17-2024 Tobacco use and exposure Smokeless tobacco non-user [facility] Start: 08-07-2022 End: 11-13-2022 Tobacco use panel [facility] Start: 03-27-2012 Adult Depression Screening Assessment 0 [facility] Start: 07-20-2023 End: 07-20-2023 Tobacco smoking status NHIS Unknown if ever smoked [facility] Start: 07-20-2023 Sober [facility] Start: 07-20-2023 None [facility] Start: 09-23-2014 Spouse/ Signif icant Other [facility] Start: 07-20-2023 Cigarettes [facility] Start: 1955 Sex Assigned At Female W [facility] Start: 09-29-2024 End: 01-27-2025 Tobacco smoking status NHIS Ex-smoker (finding) [facility] Start: 1969 History of tobacco use Current smoke r [facility] Start: 12-15-2024 Alcoholic beverage intake Ex-drinker (finding) [employer] Start: 11-22-2024 Sex Female (finding) [employer] Within the last year , have you been afraid of your partner or ex-partner? No [facility] Goals Date Patient Goal Desired Activity /State Personal health goal Functional Status Date Assessment Result Facility 01-31-2025 Functional status Ambulates [facility] Work Phone: 01-25-2025 Functional status Unable to Assess [facility] Work Phone: 12-30-2024 Functional status Ambulates [facility] Work Phone: 12-29-2024 Functional status Well [facility] Work Phone: 12-27-2024 Functional status Bedside Commod e;Stand and pivot [facility] Work Phone: 10-09-2024 Functional status Ambulates [facility] Work Phone: 07-22-2023 Functional status Chair [facility] Work Phone: 06-29-2016 Are you deaf, or do you have serious difficulty hearing No 06/29/2016 3:38 PM Nancy Payne RN No [facility] 06-29-2016 Are you blind, or do you have serious difficulty seeing, even when wearing glasses No 06/29/2016 3:38 PM Nancy Payne RN No [facility] 06-29-2016 Do you have serious difficulty walking or climbing stairs Yes 06/29/2016 3:38 PM Nancy Payne RN Yes [facility] 06-29-2016 Do you have difficul ty dressing or bathing No 06/29/2016 3:38 PM Nancy Payne RN No [facility] 06-29-2016 Because of a physica l, mental, or emotional condition, do you have difficulty doing errands alone such as visiting a physician's office or shopping Yes 06/29/2016 3:38 PM Nancy Payne RN Yes [facility] Mental Status Date Assessment Result Facility 01-31-2025 Cognitive function Voice/Name [facility] Work Phone: 01-25-2025 Cognitive function Touch/Shaking [facility] Work Phone: 12-30-2024 Cognitive function Voice/Name [facility] Work Phone: 12-27-2024 Cognitive function Voice/Name [facility] Work Phone: 10-09-2024 Cognitive function Voice/Name [facility] Work Phone: 07-22-2023 Cognitive function Voice/Name [facility] Work Phone: 06-29-2016 Because of a physica l, mental, or emotional condition, do you have serious difficulty concentrating, remembering, or making decisions No 06/29/2016 3:38 PM Nancy Payne RN No [facility] Clinical Notes 06-30-2016 to 01-31-2025 Note Date & Type Note Facility 01-31-2025 Discharge summary Note Date/Time January 31, 2025 4:15pm [facility] Medical Records Department [address] [place] [address] Discharge Summary 01/31/25 1508 MR#: [id number] Acct: [id number] Name: DENIA GONZALEZ Rep #:[id number] : 1955 69 From: Debby Gu MD PCP: Dr. Yoseph Fall MD Status:AD M IN Location: [facility] [id number] Providers Date of Admission: 01/25/25 Date of Discharge: 01/31/25 Primary Care Physician: Dr. Yoseph Fall MD Consultations 01/25/25 12:26 Consult: Sleep Technician / Pulmonary Medicine Routine Consulting Provider: Pulmonary Medicine [facility] Reason for Consult: intubation, on vent EMERGENT Consult: No MD Notified: Yes Date Notified: 01/25/25 Time Notified: 10:14 Method of Notification: Text 01/26/25 08:59 Consult: Cardiology Routine Consulting Provider: Amy Keenan Reason for Consult: AfiB RVR, resp failure, severe EMERGENT Consult: No MD Notified: Yes Date Notified: 01/26/25 Time Notified: 08:59 Method of Notification: Text Reason For Visit: ACUTE ON CHR RESP FAILURE Diagnosis Discharge Diagnosis (1) Acute respiratory failure: Status: Acute Code(s): J96.00 - Acute respiratory failure, unspecified whether with hypoxia or hypercapnia (2) Multifocal pneumonia: Status: Acute Code(s): J18.8 - Other pneumonia, unspecified organism (3) Acute exacerbation of chronic obstructive pulmonary disease: Status: Acute Code(s): J44.1 - Chronic obstructive pulmonary disease with (acute) exacerbation (4) Afib: Status: Chronic Code(s): I48.91 - Unspecified atrial fibrillation Qualifiers: Atrial fibrillation type: paroxysmal Qualified Code(s): I48.0 - Paroxysmal atrial fibrillation (5) Aortic valve stenosis: Status: Acute Code(s): I35.0 - Nonrheumatic aortic (valve) stenosis Qualifiers: Cardiac valve disease etiology: nonrheumatic Qualified Code(s): I35.0 -Nonrheumatic aortic (valve) stenosis Plan # Acute on chronic hypoxic respiratory failure secondary to COPD exacerbation from multifocal pseudomonas pneumonia # Hemoptysis and anemia # A-fib with RVR #Hypokalemia- resolved # Severe aortic stenosis #Depression/anxiety #GERD # Restless leg syndrome Medications at Discharge Home Medications albuterol sulfate 90 mcg/actuation aerosol inhaler (Ventolin HFA) 1 - 2 puff inhalation Q4H PRN PRN Bronchodialation 04/18/13 montelukast 10 mg tablet 10 mg PO DAILY allergies 04/18/13 tiotropium bromide 18 mcg capsule with [...] 0.25 mg PO QHS restless legs 09/23/14 ipratropium 0.5 mg-albuterol 3 mg (2.5 mg base)/3 mL nebulization soln 3 ml inhalation Q4HWA.RT wheezing ##30 05/13/16 cholecalciferol (vitamin D3) 50 mcg (2,000 unit) capsule (Vitamin D3) 50 mcg PO DAILY vitamin 10/18/23 ipratropium 0.5 mg-albuterol 3 mg (2.5 mg base)/3 mL nebulization soln 3 ml inhalation Q6H PRN shortness of breath or wheezing #180 mL 10/18/23 buspirone 10 mg tablet 10 mg PO BID anxiety 10/02/24 hydrocodone-acetaminophen 5-325mg 5mg-325mg 1 tab PO BID PRN PRN pain 10/03/24 nicotine 14 mg/24 hr daily transdermal patch 14 mg transdermal DAILY prn #28 ea 10/09/24 apixaban 5 mg tablet (Eliquis) 5 mg PO BID blood thinne #60 tabs 11/03/24 carvedilol 6.25 mg tablet 6.25 mg PO BID bp #60 tabs 11/03/24 furosemide 20 mg tablet 20 mg PO DAILY fluid overload 12/27/24 pantoprazole 40 mg tablet,delayed release 40 mg PO BID GERD #60 tabs 12/30/24 verapamil 180 mg 24 hr capsule,extended release 180 mg PO BID #60 caps 12/30/24 dronedarone 400 mg tablet (Multaq) 400 mg PO BID 01/25/25 OXYGEN - Supplemental ([facility] INFORMATIONAL USE ONLY) hypoxia 01/27/25 alprazolam 0.25 mg tablet 0.25 mg PO Q6H PRN PRN Anxiety 3 days #12 tabs 01/31/25 levofloxacin 750 mg tablet 750 mg PO DAILY 4 days #4 tabs 01/31/25 potassium chloride 10 mEq tablet,extended release(part/cryst) 10 meq PO DAILYCM 30 days #0 tabs 01/31/25 prednisone 20 mg tablet See Taper PO BREAKFAST #32 tabs 01/31/25 Hospital Course Procedures Intubation and Transthoracic echo Summary of Care Provided Minutes Spent on Discharge: 32 Hospital Course: 69-year-old female with a history of severe aortic valve stenosis being worked up for TAVR in [place], COPD with chronic hypoxic respiratory failure on 3 L home O2, anxiety, GERD, restless leg syndrome, A-fib presented to [facility] ED 01/25/25 for worsening shortness of breath over 2 weeks. Patient required emergent intubation in the ED due to respiratory distress after she didnot tolerate BiPAP. Patient diagnosed with COPD exacerbation from bilateral multifocal pneumonia with chest x-ray and CTA showing suspicion for multifocal pneumonia but no PE. Patient admitted to ICU and started on bronchodilators andSolu-Medrol as well as IV antibiotics, sputum culture grew Pseudomonas. Patientstabilized and was able to be extubated 01/27. She was maintained on Levaquin, inhalers were continued and she tolerated switch from IV Solu-Medrol to p.o. prednisone. There was a brief time when she was intubated there was concern of possible blood in the ET tube/pink frothy sputum and Eliquis was held however this resolved and when Eliquis was reinitiated this did not recur. She also hadsignificant anxiety, home meds were restarted and she did have a small dose of Xanax started as needed which seem to help significantly. On day of discharge patient seems to be back to baseline, has chronic shortness of breath but significantly improved from presentation, improved swelling in lower extremities. Aside from her anxiety no new or acute complaints. Discharge instructions as follows: DISCHARGE INSTRUCTIONS PLEASE READ *Please take this with you to your next doctors appointment* - You will need to continue outpatient evaluation for your aortic valve possiblyneeding replaced - You wear receiving low doses of Xanax as needed for your panic attacks relatedto your breathing, a prescription will be sent for several days however using this and continuation at the discretion of physician assuming care - You have been restarted on a low-dose of Lasix as it appears were supposed to be taking this at home and did require Lasix several times during her admission - Due to the Lasix and several low potassium you have been started on a low-doseof potassium supplementation -You will be discharged on a prednisone taper: -60 mg daily x3 days -50mg daily x3 days -40mg daily x3 days -30mg daily x3 days -20mg daily x3 days -10mg daily x3 days - You will also be discharged on an additional 4 days of Levaquin with next dose02/01 -Please call your primary care provider's office upon discharge to schedule a hospital follow up within 1 week. -For any concerning signs or symptoms please call 911 or proceed to the nearest emergency department Physical Exam Narrative General: Resting comfortably, wakes up and answers questions appropriately HEENT: Atraumatic, normocephalic, poor dentition Eyes: Anicteric, normal conjunctiva, extraocular movements grossly intact Neck: Supple Respiratory: Unchanged from the day prior, no overt wheezes or rhonchi, respiratory status seems to be at baseline, no labored breathing Cardiovascular: Regular rate GI: Soft, nontender, nondistended Extremities: Trace edema in feet Musculoskeletal: Moving all extremities Neuro: No overt focal neurological deficits Skin: No rashes appreciated Psych: Cooperative and pleasant Weight / BMI Weight Weight: 66.3 kg Body Mass Index (BMI) 24.9 ABG / Lab / Microbiology Data 01/31/25 05:07 01/31/25 05:07 Laboratory: Laboratory Results - last 24 hr 01/31/25 05:07: WBC 9.0, RBC 3.87 L, Hgb 9.5 L, Hct 31.4 L, MCV 81.1, MCH 24.5 L, MCHC 30.3 L, RDW Std Deviation 44.4 H, RDW Coeff of Augustin 15.1 H, Plt Count 204,MPV 11.3, Immature Gran % (Auto) 0.700, Neut % (Auto) 71.2 H, Lymph % (Auto) 16.1 L, Aiken % (Auto) 11.7 H, Eos % (Auto) 0.2, Baso % (Auto) 0.1, Absolute Neuts (auto) 6.4, Absolute Lymphs (auto) 1.44, Nucleated RBC % 0, Sodium 141, Potassium 3.3, Chloride 92 L, Carbon Dioxide 44.1 H, Anion Gap 6, BUN 14, Creatinine 0.48 L, Estim Creat Clear Calc 62.17, Est GFR (MDRD) Non-Af 103, BUN/Creatinine Ratio 29.6 H, Glucose 98, Calcium 8.8 Microbiology: Microbiology 01/25/25 08:31 Blood Culture (Wb) - Anticubital Right Blood Culture - Final No growth in 5 days. 01/25/25 08:31 Blood Culture (Wb) - Anticubital Left Blood Culture - Final No growth in 5 days. 01/25/25 09:15 Sputum, Induced/Lukens Gram Stain - Final 01/25/25 09:15 Sputum, Induced/Lukens Respiratory Culture - Final Pseudomonas aeruginosa 01/25/25 09:04 Urine Catheter - Catheter Legionella Antigen - Final 01/25/25 09:04 Urine Catheter - Catheter Streptococcus pneumoniae Antigen (M- Final 01/25/25 08:40 Mucosa - Nose SARS-CoV-2, Influenza & RSV (PCR) - Final D/C Instructions DC O2, CPAP, BIPAP Needs Home O2 Discharge instructions: Yes Type of respiratory needs?: Oxygen Oxygen frequency: Continuous Continuous oxygen liters per minute: 3 and BiPAP BiPAP instructions: AVAPS 14/6, Rate 12 and FiO2 35 DC home with Oxygen: Yes Home O2 MD Review: I have reviewed the oxygen testing, and the patient qualifies for home oxygen equipment and portability. The patient is mobile in the home and the community. Meaningful Use Info Meaningful Use Meaningful Use Diagnoses (Choose all that apply): None applicable Discharge Plan Admission Admit Date/Time: 01/25/25 10:04 Primary Reason for Your Visit: Increased shortness of breath Attending Provider: Debby Gu Primary Care Provider: Yoseph Fall Consulting Providers: Alessandro Palma Instructions Patient Instructions: ED Fall Prevention Additional Instructions / Restrictions: DISCHARGE INSTRUCTIONS PLEASE READ *Please take this with you to your next doctors appointment* - You will need to continue outpatient evaluation for your aortic valve possiblyneeding replaced - You wear receiving low doses of Xanax as needed for your panic attacks relatedto your breathing, a prescription will be sent for several days however using this and continuation at the discretion of physician assuming care - You have been restarted on a low-dose of Lasix as it appears were supposed to be taking this at home and did require Lasix several times during her admission - Due to the Lasix and several low potassium you have been started on a low-doseof potassium supplementation -You will be discharged on a prednisone taper: -60 mg daily x3 days -50mg daily x3 days -40mg daily x3 days -30mg daily x3 days -20mg daily x3 days -10mg daily x3 days - You will also be discharged on an additional 4 days of Levaquin with next dose02/01 -Please call your primary care provider's office upon discharge to schedule a hospital follow up within 1 week. -For any concerning signs or symptoms please call 911 or proceed to the nearest emergency department Discharge Orders/Prescriptions Prescriptions: New alprazolam 0.25 mg Tablet 0.25 mg PO Q6H PRN PRN (Reason: Anxiety) 3 Days Qty: 12 0RF potassium chloride 10 mEq Tablet,Er Particles/Crystals 10 meq PO DAILYCM 30 Days Qty: 0 0RF prednisone 20 mg Tablet See Taper PO BREAKFAST Qty: 32 0RF Taper: Prednisone Taper 60 mg WITH BREAKFAST for 3 Days and 0 Hour 50 mg WITH BREAKFAST for 3 Days and 0 Hour 40 mg WITH BREAKFAST for 3 Days and 0 Hour 30 mg WITH BREAKFAST for 3 Days and 0 Hour 20 mg WITH BREAKFAST for 3 Days and 0 Hour 10 mg WITH BREAKFAST for 3 Days and 0 Hour levofloxacin 750 mg tablet 750 mg PO DAILY 4 Days Qty: 4 0RF Continued carvedilol 6.25 mg tablet 6.25 mg PO BID Qty: 60 11RF Rx Instructions: must administer with a meal/food Eliquis 5 mg tablet 5 mg PO BID Qty: 60 11RF Rx Instructions: Discontinue if platelet count drops less than 50,000 or hemoglobin less than 8 g% montelukast 10 MG tablet 10 mg PO DAILY Patient Comments: ANTI-HISTAMINE albuterol sulfate [Ventolin HFA] 1 INHALER inhaler 1 - 2 puff inhalation Q4H PRN PRN (Reason: Bronchodialation) Patient Comments: COPD/SHORTNESS OF BREATH tiotropium bromide [Spiriva with HandiHaler] 1 PUFF [...] mg PO QHS Patient Comments: restless legs ipratropium-albuterol 3 ML solution for nebulization 3 ml inhalation Q4HWA.RT Qty: 30 0RF cholecalciferol (vitamin D3) [Vitamin D3] 50 [...] 20 mg tablet 20 mg PO DAILY pantoprazole 40 mg tablet,delayed release (DR/EC) 40 mg PO BID Qty: 60 2RF verapamil 180 mg Capsule,Ext Rel. 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 Yoseph Fall MD; Dr. Debby Gu MD~ Signed [facility] Work Phone: 1(889) 996-905110-08-2025 Consult note Author Amanda Taylor [facility] Note Date/Time January 31, 2025 8: 15pm [facility] Medical Records Department [address] [place] [address] Counseling Note - Pharmacy 01/31/25 1539 MR#: [id number] Acct: [id number] Name: DENIA GONZALEZ Rep #:[id number] : 1955 69 From: Amanda Taylor PCP: Dr. Yoseph Fall MD Status:AD M IN Y Location: [place] [id number] [place] Med Reconciliation Pharmacy Service has performed discharge medication reconciliation for this patient. The patient's discharge medication list was reviewed for discrepancies and discrepancies were resolved. Medications at Discharge Home Medications albuterol sulfate 90 mcg/actuation aerosol inhaler (Ventolin HFA) 1 - 2 puff inhalation Q4H PRN PRN Bronchodialation 04/18/13 montelukast 10 mg tablet 10 mg PO DAILY allergies 04/18/13 tiotropium bromide 18 mcg capsule with [...] 0.25 mg PO QHS restless legs 09/23/14 ipratropium 0.5 mg-albuterol 3 mg (2.5 mg base)/3 mL nebulization soln 3 ml inhalation Q4HWA.RT wheezing ##30 05/13/16 cholecalciferol (vitamin D3) 50 mcg (2,000 unit) capsule (Vitamin D3) 50 mcg PO DAILY vitamin 10/18/23 ipratropium 0.5 mg-albuterol 3 mg (2.5 mg base)/3 mL nebulization soln 3 ml inhalation Q6H PRN shortness of breath or wheezing #180 mL 10/18/23 buspirone 10 mg tablet 10 mg PO BID anxiety 10/02/24 hydrocodone-acetaminophen 5-325mg 5mg-325mg 1 tab PO BID PRN PRN pain 10/03/24 nicotine 14 mg/24 hr daily transdermal patch 14 mg transdermal DAILY prn #28 ea 10/09/24 apixaban 5 mg tablet (Eliquis) 5 mg PO BID blood thinne #60 tabs 11/03/24 carvedilol 6.25 mg tablet 6.25 mg PO BID bp #60 tabs 11/03/24 furosemide 20 mg tablet 20 mg PO DAILY fluid overload 12/27/24 pantoprazole 40 mg tablet,delayed release 40 mg PO BID GERD #60 tabs 12/30/24 verapamil 180 mg 24 hr capsule,extended release 180 mg PO BID #60 caps 12/30/24 dronedarone 400 mg tablet (Multaq) 400 mg PO BID 01/25/25 OXYGEN - Supplemental ([facility] INFORMATIONAL USE ONLY) hypoxia 01/27/25 alprazolam 0.25 mg tablet 0.25 mg PO Q6H PRN PRN Anxiety 3 days #12 tabs 01/31/25 levofloxacin 750 mg tablet 750 mg PO DAILY 4 days #4 tabs 01/31/25 potassium chloride 10 mEq tablet,extended release(part/cryst) 10 meq PO DAILYCM 30 days #0 tabs 01/31/25 prednisone 20 mg tablet See Taper PO BREAKFAST #32 tabs 01/31/25 01/31/25 9829 <Electronically signed by Amanda Taylor> Date _ [facility] Signature (if applicable): Date CC: ~ Signed [facility] Work Phone: 1(860) 390-478310-08-2025 Discharge summary Author Debby Gu [facility] Note Date/Time January 31, 2025 3: 08pm [facility] Medical Records Department [address] [place] [address] Transfer to [facility] Care MR#: [id number] Acct: [id number] Name: DENIA GONZALEZ Rep #:[id number] : 1955 69 From: Debby Gu MD PCP: Dr. Yoseph Fall MD Status:AD M IN Certification of patient admission REQUIRED AT TIME OF ADMISSION. I CERTIFY THAT POST-HOSPITAL ECF SERVICES ARE REQUIRED TO BE GIVEN ON AN IN-PATIENT BASIS BECAUSE OF THE ABOVE NAMED PATIENT'S NEED FOR USP CARE ON A CONTINUING BASIS FOR THE CONDITION(S) FOR WHICH HE/SHE WAS RECEIVING IN-PATIENT HOSPITAL SERVICES PRIOR TO HIS/HER TRANSFER TO THE [facility]. 01/31/25 1508<Electronically signed by Debby Gu MD> Diet Diet Order/Speech Therapy: INPATIENT Hospital Diet / Speech Therapy Order(s) 01/29/25 14:08 Diet: Regular - General Food consistency:: Easy to Chew Liquid Consistency:: Ribera/Mildly Thick Speech Therapy Comments: Direct sup for foods, alt bites/sips, meds whole in Routine Orders/Code Status Suppository Type: Dulcolax 10mg Suppository Frequency: Daily PRN Routine Lab Work: BMP (1-2 days to assess potassium and kidney function) Code Status: Full Code DC O2, CPAP, BIPAP needs Home O2 Discharge instructions: Yes Type of respiratory needs?: Oxygen Oxygen frequency: Continuous Continuous oxygen liters per minute: 3 and BiPAP BiPAP instructions: AVAPS 14/6, Rate 12 and FiO2 35 Therapies Physical Therapy: Eval and Treat Occupational Therapy: Eval and Treat Problem/Diagnosis (1) Acute respiratory failure: Status: Acute Code(s): J96.00 - Acute respiratory failure, unspecified whether with hypoxia or hypercapnia (2) Multifocal pneumonia: Status: Acute Code(s): J18.8 - Other pneumonia, unspecified organism (3) Acute exacerbation of chronic obstructive pulmonary disease: Status: Acute Code(s): J44.1 - Chronic obstructive pulmonary disease with (acute) exacerbation (4) Afib: Status: Chronic Code(s): I48.91 - Unspecified atrial fibrillation (5) Aortic valve stenosis: Status: Acute Code(s): I35.0 - Nonrheumatic aortic (valve) stenosis Plan # Acute on chronic hypoxic respiratory failure secondary to COPD exacerbation from multifocal pneumonia # Hemoptysis and anemia # A-fib with RVR #Hypokalemia- resolved # Severe aortic stenosis #Depression/anxiety #GERD # Restless leg syndrome 69-year-old female with a history of severe aortic valve stenosis being worked up for TAVR in [place], COPD with chronic hypoxic respiratory failure on 3 L home O2, anxiety, GERD, restless leg syndrome, A-fib presented to [facility] ED 01/25/25 for worsening shortness of breath over 2 weeks. Patient required emergent intubation in the ED due to respiratory distress after she didnot tolerate BiPAP. Patient diagnosed with COPD exacerbation from bilateral multifocal pneumonia with chest x-ray and CTA showing suspicion for multifocal pneumonia but no PE. Patient admitted to ICU and started on bronchodilators andSolu-Medrol as well as IV antibiotics, sputum culture grew Pseudomonas. Patientstabilized and was able to be extubated 01/27. She was maintained on Levaquin, inhalers were continued and she tolerated switch from IV Solu-Medrol to p.o. prednisone. There was a brief time when she was intubated there was concern of possible blood in the ET tube/pink frothy sputum and Eliquis was held however this resolved and when Eliquis was reinitiated this did not recur. She also hadsignificant anxiety, home meds were restarted and she did have a small dose of Xanax started as needed which seem to help significantly. On day of discharge patient seems to be back to baseline, has chronic shortness of breath but significantly improved from presentation, improved swelling in lower extremities. Aside from her anxiety no new or acute complaints. Discharge instructions as follows: DISCHARGE INSTRUCTIONS PLEASE READ *Please take this with you to your next doctors appointment* - You will need to continue outpatient evaluation for your aortic valve possiblyneeding replaced - You wear receiving low doses of Xanax as needed for your panic attacks relatedto your breathing, a prescription will be sent for several days however using this and continuation at the discretion of physician assuming care - You have been restarted on a low-dose of Lasix as it appears were supposed to be taking this at home and did require Lasix several times during her admission - Due to the Lasix and several low potassium you have been started on a low- doseof potassium supplementation -You will be discharged on a prednisone taper: -60 mg daily x3 days -50mg daily x3 days -40mg daily x3 days -30mg daily x3 days -20mg daily x3 days -10mg daily x3 days - You will also be discharged on an additional 4 days of Levaquin with next dose02/01 -Please call your primary care provider's office upon discharge to schedule a hospital follow up within 1 week. -For any concerning signs or symptoms please call 911 or proceed to the nearest emergency department Allergies/Procedures Done in Hospital Allergies No Known Allergies Allergy (Verified 01/25/25 08:25) Procedures: 2-D Echocardiogram and Intubation Type of Care/Length of Stay Estimated LOS: Convalescent Care Less Than 30 days Type of Care Needed: Skilled Rehab Potential: Fair Prognosis: Fair Additional Orders/Day of Discharge Day of Discharge: 01/31/25 Dietary and Speech Recommendations Dietitian Recommendations/Changes: When medically able to resume po diet, rec liberal Regular BUNNY - consistency per SOFT SUGAR SUPERVISOR Will continue to follow and monitor for changes in pt nutritional status and make additional rec as indicated. Discharge Plan Admission Admit Date/Time: 01/25/25 10:04 Primary Reason for Your Visit: Increased shortness of breath Attending Provider: Debby Gu Primary Care Provider: Yoseph Fall Consulting Providers: Alessandro Palma Instructions Patient Instructions: ED Fall Prevention Additional Instructions / Restrictions: DISCHARGE INSTRUCTIONS PLEASE READ *Please take this with you to your next doctors appointment* - You will need to continue outpatient evaluation for your aortic valve possiblyneeding replaced - You wear receiving low doses of Xanax as needed for your panic attacks relatedto your breathing, a prescription will be sent for several days however using this and continuation at the discretion of physician assuming care - You have been restarted on a low-dose of Lasix as it appears were supposed to be taking this at home and did require Lasix several times during her admission - Due to the Lasix and several low potassium you have been started on a low- doseof potassium supplementation -You will be discharged on a prednisone taper: -60 mg daily x3 days -50mg daily x3 days -40mg daily x3 days -30mg daily x3 days -20mg daily x3 days -10mg daily x3 days - You will also be discharged on an additional 4 days of Levaquin with next dose02/01 -Please call your primary care provider's office upon discharge to schedule a hospital follow up within 1 week. -For any concerning signs or symptoms please call 911 or proceed to the nearest emergency department Discharge Orders/Prescriptions Prescriptions: New alprazolam 0.25 mg Tablet 0.25 mg PO Q6H PRN PRN (Reason: Anxiety) 3 Days Qty: 12 0RF potassium chloride 10 mEq Tablet,Er Particles/Crystals 10 meq PO DAILYCM 30 Days Qty: 0 0RF prednisone 20 mg Tablet See Taper PO BREAKFAST Qty: 32 0RF Taper: Prednisone Taper 60 mg WITH BREAKFAST for 3 Days and 0 Hour 50 mg WITH BREAKFAST for 3 Days and 0 Hour 40 mg WITH BREAKFAST for 3 Days and 0 Hour 30 mg WITH BREAKFAST for 3 Days and 0 Hour 20 mg WITH BREAKFAST for 3 Days and 0 Hour 10 mg WITH BREAKFAST for 3 Days and 0 Hour levofloxacin 750 mg tablet 750 mg PO DAILY 4 Days Qty: 4 0RF Continued carvedilol 6.25 mg tablet 6.25 mg PO BID Qty: 60 11RF Rx Instructions: must administer with a meal/food Eliquis 5 mg tablet 5 mg PO BID Qty: 60 11RF Rx Instructions: Discontinue if platelet count drops less than 50,000 or hemoglobin less than 8 g% montelukast 10 MG tablet 10 mg PO DAILY Patient Comments: ANTI-HISTAMINE albuterol sulfate [Ventolin HFA] 1 INHALER inhaler 1 - 2 puff inhalation Q4H PRN PRN (Reason: Bronchodialation) Patient Comments: COPD/SHORTNESS OF BREATH tiotropium bromide [Spiriva with HandiHaler] 1 PUFF [...] mg PO QHS Patient Comments: restless legs ipratropium-albuterol 3 ML solution for nebulization 3 ml inhalation Q4HWA.RT Qty: 30 0RF cholecalciferol (vitamin D3) [Vitamin D3] 50 [...] 20 mg tablet 20 mg PO DAILY pantoprazole 40 mg tablet,delayed release (DR/EC) 40 mg PO BID Qty: 60 2RF verapamil 180 mg Capsule,Ext Rel. Pellets 24 Hr 180 mg PO BID Qty: 60 2RF Multaq 400 mg tablet 400 mg PO BID Rx Instructions: must administer with a meal/food OXYGEN - Supplemental ([facility] INFORMATIONAL USE ONLY) Patient Comments: patient states she wears 3L at home and the [employer] supplies the oxygen Discontinued cyclobenzaprine 10 MG tablet 10 mg PO Q12H 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 prednisone 10 MG tablet 15 mg PO QODAY PRN (Reason: FLARE UPS) Patient Comments: steroid for inflammation Referrals / Follow Up: Yoseph Fall MD [Primary Care Provider, [facility]] - Within 1 Week Disposition Disposition (needs filled in before D/C Order can be placed): Intermediate Facility (4) Afib Qualifiers: Atrial fibrillation type: paroxysmal Qualified Code(s): I48.0 - Paroxysmal atrial fibrillation (5) Aortic valve stenosis Qualifiers: Cardiac valve disease etiology: nonrheumatic Qualified Code(s): I35.0 - Nonrheumatic aortic (valve) stenosis 01/31/25 1508 <Electronically signed by Debby Gu MD> Cosigner Signature (if applicable): CC: Dr. Yoseph Fall MD; Dr. Alessandro Palma MD ~ [facility] Work Phone: 1(979) 135-476910-08-2025 [facility]10-08-2025 Progress note Author Elma Mendez [facility] Note Date/Time January 30, 2025 10 :28pm [facility] Medical Records Department [address] [place] [address] Progress Note - Hospitalist 01/30/252225 MR#: [id number] Acct: [id number] Name: DENIA GONZALEZ Rep #:[id number] : 1955 69 From: Elma Ratliff PCP: Dr. Yoseph Fall MD Status:AD M IN Location: [place] [address] Hospitalist Note Pt asking for Imodium due to frequent loose stools. Stool studies have not been performed,these are necessary prior to prescribing loperamide. However, she may start psyllium PO now and continue twice daily to absorb water from colon. 01/30/252227 <Electronically signed by Elma WATTS> Cosigner Signature (if applicable): CC: ~ Signed [facility] Work Phone: 1(620) 996-867510-07-2025 Progress note Author Debby Gu [facility] Note Date/Time January 30, 2025 2: 37pm [facility] Medical Records Department [address] [place] [address] Progress Note - Hospitalist 01/30/25 1425 MR#: [id number] Acct: [id number] Name: DENIA GONZALEZ Rep #:[id number] : 1955 69 From: Debby Gu MD PCP: Dr. Yoseph Fall MD Status:AD M IN Location: [place] [address] Reason for Visit Chief Complaint: Progressive worsening shortness of breath for 2 weeks Subjective Subjective Continues to feel slowly improved, still having some cough and shortness of breath but better than previous, lower extremity swelling improved, still in a lot of anxiety and primarily concerned about that Objective Data Objective Data Vital Signs: Vital Signs Temp Pulse Resp BP Pulse Ox O2 Del Method O2 Flow Rate 98.7 F 91 16 115/68 95 Nasal Cannula 3 01/30/25 13:47 01/30/25 13:47 01/30/25 13:47 01/30/25 13:47 01/30/25 13:47 01/30/25 14:00 01/30/25 14:00 FiO2 35 01/30/25 05:50 Oxygen Flow Rate (L/min) 3 Oxygen Delivery Method Nasal Cannula Weight: 70.3 kg Body Mass Index (BMI) 26.4 Intake & Output: Intake and Output for Last 24 Hours 01/28/25 01/29/25 01/30/25 23:59 23:59 23:59 Intake Total 960 / 960 519.25 / 819.25 1000 / 1000 Output Total 3625 / 3625 150 / 150 400 / 400 Balance -2665 / -2665 369.25 / 669.25 600 / 600 Lab / Micro Data 01/30/25 05:04 01/30/25 05:04 Labs: Laboratory Results - last 24 hr 01/30/25 05:04: WBC 6.1, RBC 3.64 L, Hgb 8.9 L, Hct 29.2 L, MCV 80.2 L, MCH 24.5L, MCHC 30.5 L, RDW Std Deviation 43.3, RDW Coeff of Augustin 14.8 H, Plt Count 195, MPV 12.0, Immature Gran % (Auto) 0.800, Neut % (Auto) 87.0 H, Lymph % (Auto) 7.3L, Aiken % (Auto) 4.7, Eos % (Auto) 0.0, Baso % (Auto) 0.2, Absolute Neuts (auto)5.3, Absolute Lymphs (auto) 0.45 L, Nucleated RBC % 0, Sodium 141, Potassium 3.2L, Chloride 89 L, Carbon Dioxide 43.5 H, Anion Gap 9, BUN 18, Creatinine 0.59 L,Estim Creat Clear Calc 63.85, Est GFR (MDRD) Non-Af 97, BUN/Creatinine Ratio 30.6 H, Glucose 179 H, Calcium 8.6 Micro: Microbiology 01/25/25 08:31 Blood Culture (Wb) - Anticubital Right Blood Culture - Final No growth in 5 days. 01/25/25 08:31 Blood Culture (Wb) - Anticubital Left Blood Culture - Final No growth in 5 days. 01/25/25 09:15 Sputum, Induced/Lukens Gram Stain - Final 01/25/25 09:15 Sputum, Induced/Lukens Respiratory Culture - Final Pseudomonas aeruginosa 01/25/25 09:04 Urine Catheter - Catheter Legionella Antigen - Final 01/25/25 09:04 Urine Catheter - Catheter Streptococcus pneumoniae Antigen (M- Final 01/25/25 08:40 Mucosa - Nose SARS-CoV-2, Influenza & RSV (PCR) - Final Rhythm Strip Rhythm Strip: Sinus Tach Rate: 110 Ectopy: PAC(s) Physical Exam Narrative General: Alert, appears less anxious today HEENT: Atraumatic, normocephalic Eyes: Anicteric, normal conjunctiva, extraocular movements grossly intact Neck: Supple Respiratory: Respiratory effort improved, improving aeration, no overt wheezes or rhonchi my exam Cardiovascular: Regular rate GI: Soft, nontender, nondistended Extremities: Improving pitting edema in feet Musculoskeletal: Moving all extremities Neuro: No overt focal neurological deficits Skin: No rashes appreciated Psych: Cooperative and pleasant, a little bit anxious when talking about her anxiety medication Assessment & Plan Assessment/Plan (1) Acute respiratory failure: PLAN: Plan 69-year-old female with a history of severe aortic valve stenosis being worked up for TAVR in [place], COPD with chronic hypoxic respiratory failure on 3 L home O2, anxiety, GERD, restless leg syndrome, A-fib presented to [facility] ED 02/17 for worsening shortness of breath over 2 weeks. Patient required emergent intubation in the ED due to respiratory distress after she didnot tolerate BiPAP. Patient diagnosed with COPD exacerbation from bilateral multifocal pneumonia with chest x-ray and CTA showing suspicion for multifocal pneumonia but no PE. Patient admitted to ICU and started on bronchodilators andSolu-Medrol. # Acute on chronic hypoxic respiratory failure secondary to COPD exacerbation from multifocal pneumonia - On 3 L at baseline O2 -Required intubation in the ED - CT on presentation no PE but suggestive of possible multifocal pneumonia and patient did become febrile -Respiratory culture growing gram-negative rods, now resulted as Pseudomonas - Continue antibiotics, Solu-Medrol, nebs - Sleep Technician on consult -01/28: Status post extubation, growing Pseudomonas in sputum, continue antibiotics, patient javid on nebs and steroids. Received additional IV diuresis yesterday and 1 dose today, proceeding cautiously given her severe aortic stenosis -01/29: Presently 98% on 3 L of nasal cannula, remains on nebs, antibiotics, Methylpred. Plan will be to continue Levaquin for total of 10 days, ultimate plan will be to transition patient to oral prednisone -01/30: Respiratory status significantly improved, stressed importance of incentive spirometer and flutter valve patient verbalized understanding, will stepdown to oral steroids, patient on Levaquin and nebs # Hemoptysis and anemia -Blood tinged sputum reportedly in ET tube and hemoglobin down trended to 6.7 from 8.4 on presentation -Patient transfused with a repeat hemoglobin of 8.8 that thus far has stayed stable -Eliquis on hold -01/28: Hemoglobin stable today, if no further episodes may be able to trial resuming Eliquis soon, appreciate pulm recommendations -01/29: Hemoglobin is now stable, no further episodes noted, will resume Eliquis -01/30: Tolerating Eliquis with a stable hemoglobin # A-fib with RVR - Cardiology evaluated, currently in sinus rhythm -Echo obtained and showed EF of 70% and severe aortic stenosis -Eliquis on hold -Patient continued on dronedarone, verapamil, and Coreg -01/28: Heart rate has been controlled, continue verapamil and dronedarone, decreased Coreg as she has got this inconsistently due to wide fluctuations in blood pressure, given her severe aortic stenosis will need to adjust these cautiously, holding Eliquis as above, hopeful to resume soon. Does have some low-grade tachycardia at present but is very anxious, suspect this is secondary to nebs and anxiety -01/29: Blood pressure has been more consistent and heart rate has been stable oncurrent dose of medications -01/30: Patient being monitored on telemetry, much improved, blood pressure better as well, will increase carvedilol back to home dose of 6.25 twice daily #Hypokalemia -Replace - Repeat this afternoon -01/28: Had improved however this a.m. was 3.1, further potassium replacement ordered -01/29: Replaced with IV potassium, likely low again she got further Lasix, if Lasix would be scheduled would likely need to schedule potassium replacement -01/30: A little bit low again despite not getting Lasix, will be starting patient on low-dose of Lasix so we will schedule low-dose replacement # Severe aortic stenosis - Reportedly being worked up in [place] for TAVR - Had heart cath several weeks ago as part of her workup -Cardiology evaluated, patient trialed on IV Lasix given elevated BNP and pitting edema in the event this also is contributing to her respiratory failure -10/5: Patient received Lasix yesterday x 2 and tolerated this well, has had some fluctuations in blood pressure, another dose of Lasix given today, has got Coreg inconsistently so decreased the dose, still on verapamil and dronedarone, will need to follow-up on discharge in [place] for her TAVR evaluation -01/29: Tolerated additional Lasix yesterday, presently balance is -2800 -01/30: Appears patient was supposed to be on 20 mg of Lasix, it is on her home med list but she reported she was not taking it, patient's weight had improved and she had been net negative, gained a small amount of weight and is a little bit positive today, will resume scheduled Lasix to work on maintaining fluid balance #Depression/anxiety -01/28: Patient's home anxiety and depression medications resumed -01/29: Doing better back on home medications, Xanax as needed started by medical lab specialist over the weekend, patient reports she is getting set up with outpatient palliative care to discuss being prescribed this long-term for her anxiety -01/30: Xanax low-dose 4 times daily as needed, discussed that I would not be able to prescribe this long-term on discharge and she will need to follow-up with a provider to discuss this or alternative options, she verbalized her understanding Chronic medical problems and/or problems not being actively addressed during today's encounter: #GERD -Continue PPI # Restless leg syndrome -continue patient's home medication regimen #DVT ppx: SCDs Debby Gu MD Charges/Coding Visit Charges Inpatient E&M: 97894 Subs Hosp L2 01/30/25 1437 <Electronically signed by Debby Gu MD> Cosigner Signature (if applicable): CC: ~ Signed [facility] Work Phone: 1(626) 348-676910-06-2025 Procedure [facility] 01-29-2025 Progress note Author Debby Gu [facility] Note Date/Time January 29, 2025 9: 33am [facility] Medical Records Department [address] [place] [address] Progress Note - Hospitalist 01/29/25 0743 MR#: [id number] Acct: [id number] Name: DENIA GONZALEZ Rep #:[id number] : 1955 69 From: Debby Gu MD PCP: Dr. Yoseph Fall MD Status:AD M IN Location: ICU ICU03-1 Reason for Visit Chief Complaint: Progressive worsening shortness of breath for 2 weeks Subjective Subjective He is feeling better today compared to yesterday, still struggling with her breathing and anxiety but is finally medication for anxiety very helpful, there is query if she could have some aspiration so she is presently n.p.o. except meds in applesauce with supervision, awaiting further swallow eval, still is productive cough Objective Data Objective Data Vital Signs: Vital Signs Temp Pulse Resp BP Pulse Ox O2 Del Method O2 Flow Rate 98.2 F 74 16 123/51 H 98 Nasal Cannula 3 01/29/25 06:00 01/29/25 07:08 01/29/25 07:08 01/29/25 06:00 01/29/25 07:09 01/29/25 07:09 01/29/25 07:09 FiO2 35 01/28/25 23:45 Oxygen Flow Rate (L/min) 3 Oxygen Delivery Method Nasal Cannula Weight: 69.8 kg Body Mass Index (BMI) 26.4 Intake & Output: Intake and Output for Last 24 Hours 01/27/25 01/28/25 01/29/25 23:59 23:59 23:59 Intake Total 1336.88 / 1336.88 960 / 960 50 / 50 Output Total 2915 / 2915 3625 / 3625 150 / 150 Balance -1578.12 / -1578.12 -2665 / -2665 -100 / -100 Lab / Micro Data 01/29/25 03:00 01/29/25 03:00 Labs: Laboratory Results - last 24 hr 01/29/25 03:00: WBC 7.0, RBC 3.60 L, Hgb 9.0 L, Hct 28.3 L, MCV 78.6 L, MCH 25.0L, MCHC 31.8 L, RDW Std Deviation 42.1, RDW Coeff of Augustin 14.6, Plt Count 184, MPV 11.2, Immature Gran % (Auto) 0.600, Neut % (Auto) 91.2 H, Lymph % (Auto) 5.0L, Aiken % (Auto) 3.1, Eos % (Auto) 0.0, Baso % (Auto) 0.1, Absolute Neuts (auto)6.4, Absolute Lymphs (auto) 0.35 L, Nucleated RBC % 0, Sodium 139, Potassium 3.1L, Chloride 86 L, Carbon Dioxide 43.4 H, Anion Gap 10, BUN 15, Creatinine 0.56 L, Estim Creat Clear Calc 63.85, Est GFR (MDRD) Non-Af 99, BUN/Creatinine Ratio 27.6 H, Glucose 85, Calcium 8.5 Micro: Microbiology 01/25/25 08:31 Blood Culture (Wb) - Anticubital Left Blood Culture - Preliminary No growth in 48 hours. 01/25/25 08:31 Blood Culture (Wb) - Anticubital Right Blood Culture - Preliminary No growth in 48 hours. 01/25/25 09:15 Sputum, Induced/Lukens Gram Stain - Final 01/25/25 09:15 Sputum, Induced/Lukens Respiratory Culture - Final Pseudomonas aeruginosa 01/25/25 09:04 Urine Catheter - Catheter Legionella Antigen - Final 01/25/25 09:04 Urine Catheter - Catheter Streptococcus pneumoniae Antigen (M- Final 01/25/25 08:40 Mucosa - Nose SARS-CoV-2, Influenza & RSV (PCR) - Final Rhythm Strip Rhythm Strip: Sinus Tach Rate: 110 Ectopy: PAC(s) Physical Exam Narrative General: Alert, appears less anxious today HEENT: Atraumatic, normocephalic Eyes: Anicteric, normal conjunctiva, extraocular movements grossly intact Neck: Supple Respiratory: Respiratory effort improved, still suboptimal air movement but wheezing improving Cardiovascular: Regular rate GI: Soft, nontender, nondistended Extremities: Mild pitting edema in feet Musculoskeletal: Moving all extremities Neuro: No overt focal neurological deficits Skin: No rashes appreciated Psych: Cooperative and pleasant Assessment & Plan Assessment/Plan (1) Acute respiratory failure: PLAN: Plan 69-year-old female with a history of severe aortic valve stenosis being worked up for TAVR in [place], COPD with chronic hypoxic respiratory failure on 3 L home O2, anxiety, GERD, restless leg syndrome, A-fib presented to [facility] ED 02/17 for worsening shortness of breath over 2 weeks. Patient required emergent intubation in the ED due to respiratory distress after she didnot tolerate BiPAP. Patient diagnosed with COPD exacerbation from bilateral multifocal pneumonia with chest x-ray and CTA showing suspicion for multifocal pneumonia but no PE. Patient admitted to ICU and started on bronchodilators andSolu-Medrol. # Acute on chronic hypoxic respiratory failure secondary to COPD exacerbation from multifocal pneumonia - On 3 L at baseline O2 -Required intubation in the ED - CT on presentation no PE but suggestive of possible multifocal pneumonia and patient did become febrile -Respiratory culture growing gram-negative rods, now resulted as Pseudomonas - Continue antibiotics, Solu-Medrol, nebs - Sleep Technician on consult -01/28: Status post extubation, growing Pseudomonas in sputum, continue antibiotics, patient javid on nebs and steroids. Received additional IV diuresis yesterday and 1 dose today, proceeding cautiously given her severe aortic stenosis -01/29: Presently 98% on 3 L of nasal cannula, remains on nebs, antibiotics, Methylpred. Plan will be to continue Levaquin for total of 10 days, ultimate plan will be to transition patient to oral prednisone 40 mg daily for an additional 5 days # Hemoptysis and anemia -Blood tinged sputum reportedly in ET tube and hemoglobin down trended to 6.7 from 8.4 on presentation -Patient transfused with a repeat hemoglobin of 8.8 that thus far has stayed stable -Eliquis on hold -01/28: Hemoglobin stable today, if no further episodes may be able to trial resuming Eliquis soon, appreciate pulm recommendations -01/29: Hemoglobin is now stable, no further episodes noted, will resume Eliquis # A-fib with RVR - Cardiology evaluated, currently in sinus rhythm -Echo obtained and showed EF of 70% and severe aortic stenosis -Eliquis on hold -Patient continued on dronedarone, verapamil, and Coreg -01/28: Heart rate has been controlled, continue verapamil and dronedarone, decreased Coreg as she has got this inconsistently due to wide fluctuations in blood pressure, given her severe aortic stenosis will need to adjust these cautiously, holding Eliquis as above, hopeful to resume soon. Does have some low-grade tachycardia at present but is very anxious, suspect this is secondary to nebs and anxiety -01/29: Blood pressure has been more consistent and heart rate has been stable oncurrent dose of medications #Hypokalemia -Replace - Repeat this afternoon -01/28: Had improved however this a.m. was 3.1, further potassium replacement ordered -01/29: Replaced with IV potassium, likely low again she got further Lasix, if Lasix would be scheduled would likely need to schedule potassium replacement # Severe aortic stenosis - Reportedly being worked up in [place] for TAVR - Had heart cath several weeks ago as part of her workup -Cardiology evaluated, patient trialed on IV Lasix given elevated BNP and pitting edema in the event this also is contributing to her respiratory failure -01/28: Patient received Lasix yesterday x 2 and tolerated this well, has had some fluctuations in blood pressure, another dose of Lasix given today, has got Coreg inconsistently so decreased the dose, still on verapamil and dronedarone, will need to follow-up on discharge in [place] for her TAVR evaluation -01/29: Tolerated additional Lasix yesterday, presently balance is -2800 #Depression/anxiety -01/28: Patient's home anxiety and depression medications resumed -01/29: Doing better back on home medications, Xanax as needed started by medical lab specialist over the weekend, patient reports she is getting set up with outpatient palliative care to discuss being prescribed this long-term for her anxiety Chronic medical problems and/or problems not being actively addressed during today's encounter: #GERD -Continue PPI # Restless leg syndrome -continue patient's home medication regimen #DVT ppx: SCDs Debby Gu MD Charges/Coding Visit Charges Inpatient E&M: 48988 Subs Hosp L2 01/29/25 0933 <Electronically signed by Debby Gu MD> Cosigner Signature (if applicable): CC: ~ Signed [facility] Work Phone: 1(491) 679-211110-06-2025 Progress note Author Andriy Guzmán [facility] Note Date/Time January 29, 2025 7: 55am [facility] Medical Records Department [address] [place] [address] Progress Note - Sleep Technician 01/29/25 0652 MR#: [id number] Acct: [id number] Name: DENIA GONZALEZ Rep #:[id number] : 1955 69 From: Andriy Guzmán DO PCP: Dr. Yoseph Fall MD Status:AD M IN Location: ICU ICU03-1 Assessment & Plan Assessment/Plan (1) Acute respiratory failure: PLAN: Plan RECOMMENDATIONS: 1. Supplemental oxygen to maintain saturations at or above 90%. 2. Continue Levaquin to complete a total of 10 days of therapy. 3. Continue scheduled bronchodilators. 4. Once the patient is tolerating p.o. intake, transition IV Solu-Medrol to prednisone 40 mg daily x 5 additional days. 5. Encourage incentive spirometer use and mobilize patient as tolerated. 6. Will sign off from a critical care perspective. Please call with any additional questions. IMPRESSIONS: 1. Acute on chronic combined respiratory failure Unclear if this was truly precipitated by the patient's COPD with concurrent panic attacks versus sequelae of her valvular heart disease. She is currently being worked up for a TAVR in [place]. In addition, she has a known extensive tobacco abuse history with a questionable history of COPD, despite never having completed pulmonary function studies or having been evaluated by a pulmonologistin the past. According to her , she has a baseline oxygen requirement of3 L/min. Her CT scan was not overtly concerning for a focal infiltrate or consolidation to suggest pneumonia. However, the patient did ultimately spike afever. Therefore, antibiotics were initiated. Sputum culture was subsequently positive for Pseudomonas aeruginosa. Therefore, recommend continuing Levaquin to complete 10 days of therapy. The patient will be continued on scheduled bronchodilators and steroids. Once the patient is able to tolerate p.o. intake,okay to transition to prednisone 40 mg daily for 5 additional days. Continue towean supplemental oxygen to maintain saturations at or above 90%. Encourage incentive spirometer use and mobilize patient as tolerated. 2. History of valvular heart disease/restless leg syndrome/anxiety/depression/former tobacco dependency/history of non-small cell lung cancer status post right lobectomy Complicates care, management, recovery and prognosis. Continue supportive measures as noted above. Continue outpatient workup/follow-up for possible TAVR. This note was generated with [email or web address] dictation software. It may contain incorrectwords, spelling, and punctuation that were not noted in checking the note beforesigning. Subjective Subjective The patient was seen and examined at the bedside this morning. Events from the last 24 hours have been reviewed. The patient is currently afebrile, hemodynamically stable and maintaining appropriate oxygen saturations on 3 L/minvia nasal cannula. The patient has done well from a respiratory perspective following extubation. She has no specific complaints this morning. White bloodcell count is normal. Hemoglobin and platelet count are stable. Potassium is low at 3.1 with a normal creatinine. Objective Data Objective Data The patient's most recent lab work, culture data and imaging studies have all been personally reviewed. Surface echocardiogram from September 2024 demonstrated severe concentric LVH with an ejection fraction of 70% and stage I diastolic dysfunction. Severe aortic stenosis was noted. Sputum culture was positive forPseudomonas. Vital Signs: Vital Signs Temp Pulse Resp BP Pulse Ox O2 Del Method O2 Flow Rate 98.2 F 82 20 H 123/51 H 98 Nasal Cannula 4 01/29/25 06:00 01/29/25 06:00 01/29/25 06:00 01/29/25 06:00 01/29/25 06:00 01/29/25 06:00 01/29/25 06:00 FiO2 35 01/28/25 23:45 Oxygen Flow Rate (L/min) 4 Oxygen Delivery Method Nasal Cannula Weight: 153 lb 14.122 oz Body Mass Index (BMI) 26.4 Intake & Output: Intake and Output for Last 24 Hours 01/27/25 01/28/25 01/29/25 23:59 23:59 23:59 Intake Total 1336.88 / 1336.88 960 / 960 50 / 50 Output Total 2915 / 2915 3625 / 3625 150 / 150 Balance -1578.12 / -1578.12 -2665 / -2665 -100 / -100 Lab / Micro Data Attestation: I reviewed the patient's lab results. 01/29/25 03:00 01/29/25 03:00 Labs: Laboratory Results - last 24 hr 01/29/25 03:00: WBC 7.0, RBC 3.60 L, Hgb 9.0 L, Hct 28.3 L, MCV 78.6 L, MCH 25.0L, MCHC 31.8 L, RDW Std Deviation 42.1, RDW Coeff of Augustin 14.6, Plt Count 184, MPV 11.2, Immature Gran % (Auto) 0.600, Neut % (Auto) 91.2 H, Lymph % (Auto) 5.0L, Aiken % (Auto) 3.1, Eos % (Auto) 0.0, Baso % (Auto) 0.1, Absolute Neuts (auto)6.4, Absolute Lymphs (auto) 0.35 L, Nucleated RBC % 0, Sodium 139, Potassium 3.1L, Chloride 86 L, Carbon Dioxide 43.4 H, Anion Gap 10, BUN 15, Creatinine 0.56 L, Estim Creat Clear Calc 63.85, Est GFR (MDRD) Non-Af 99, BUN/Creatinine Ratio 27.6 H, Glucose 85, Calcium 8.5 Micro: Microbiology 01/25/25 08:31 Blood Culture (Wb) - Anticubital Left Blood Culture - Preliminary No growth in 48 hours. 01/25/25 08:31 Blood Culture (Wb) - Anticubital Right Blood Culture - Preliminary No growth in 48 hours. 01/25/25 09:15 Sputum, Induced/Lukens Gram Stain - Final 01/25/25 09:15 Sputum, Induced/Lukens Respiratory Culture - Final Pseudomonas aeruginosa 01/25/25 09:04 Urine Catheter - Catheter Legionella Antigen - Final 01/25/25 09:04 Urine Catheter - Catheter Streptococcus pneumoniae Antigen (M- Final 01/25/25 08:40 Mucosa - Nose SARS-CoV-2, Influenza & RSV (PCR) - Final ABG Data ABG results: ABG 01/25/25 01/26/25 10:27 05:22 Specimen Type ART ART Sample Site L Brach L Radial pH 7.51 H 7.51 H Bicarbonate Actual 46.3 H 42.4 H Total CO2 48 44 Base Excess 23 H 20 H O2 Saturation 87 L 93 L O2 % 30.0 35.0 ABG pCO2 58.7 H 52.7 H ABG pO2 51 L 64 L Chao Test N/A Respiration Rate 16 12 O2 Delivery Device Adult Vent Adult Vent Vent Mode AC AC Tidal Volume 400.0 400.0 POC PEEP 5 5 Radiography Diagnostic Testing: Radiology Impression Brain CT 01/25/25 08:46 IMPRESSION: CHRONIC CHANGES. NO ACUTE FINDINGS. Reading Location: [id number] Chest CTA 01/25/25 08:51 IMPRESSION: No demonstrated PE, however, the contrast bolus within the pulmonary arteries isnot optimal and a subtle filling defect could be present and overlooked particularly in the distal pulmonary artery branches No thoracic aortic aneurysm or dissection Emphysema with chronic interstitial changes, nonspecific pleural thickening in both hemithoraces, subsegmental atelectasis, and multifocal pneumonitis ET tube is 1 cm above the kaylan and should be pulled back 2-3 cm NG tube tip in the body of the stomach Degenerative bony changes Hiatal hernia with evidence of GE reflux Fatty liver Simple renal cysts, no specific follow-up needed Reading Location: [facility] Chest X-Ray 01/25/25 09:00 IMPRESSION: Tubes and lines in position. There are interstitial infiltrates throughout the right mid and lower lung and left lingular segment. There are trace bilateral effusions. Reading [facility] Rhythm Strip Rhythm Strip: Sinus Tach Rate: 110 Ectopy: PAC(s) Physical Exam Const alert and no apparent distress General Appearance: cooperative HEENT normocephalic, head/scalp atraumatic and moist oral mucous membranes Eyes PERRL, EOMs intact bilaterally and conjunctivae normal Neck supple General: trachea midline Resp Auscultation: diminished lung sounds; Negative for rales, rhonchi or wheezes Cardio regular rate and regular rhythm Heart Sounds: murmur GI soft to palpation and non-tender GI Narrative: Protuberant abdomen Extremity General Extremity: edema bilateral lower extremity; Negative for clubbing Skin no rashes or lesions noted Neuro CN's II-XII intact bilaterally, moves all extremities and no focal motor deficits Psych Mood & Affect: flat affect Charges/Coding Visit Charges Inpatient E&M: 24851 Subs Hosp L2 01/29/25 8426 <Electronically signed by Andriy Guzmán DO> Cosigner Signature (if applicable): CC: ~ Signed [facility] Work Phone: 1(874) 107-763510-05-2025 Progress note Author Debby Gu [facility] Note Date/Time January 28, 2025 9: 44am [facility] Medical Records Department [address] [place] [address] Progress Note - Hospitalist 01/28/25714 MR#: [id number] Acct: [id number] Name: DENIA GONZALEZ Rep #:[id number] : 1955 69 From: Debby Gu MD PCP: Dr. Yoseph Fall MD Status:AD M IN Location: ICU ICU03-1 Reason for Visit Chief Complaint: Progressive worsening shortness of breath for 2 weeks Subjective Subjective Patient not feeling very good right now as she is very anxious and she thinks itis making her breathing worse, still has a little bit of swelling in her feet, no chest pain or other acute complaints, is primarily inquiring about her anxiety medications being resumed Objective Data Objective Data Vital Signs: Vital Signs Temp Pulse Resp BP Pulse Ox O2 Del Method O2 Flow Rate 99.1 F 94 16 141/67 H 93 Nasal Cannula 4 01/28/25 06:00 01/28/25 06:35 01/28/25 06:35 01/28/25 06:00 01/28/25 06:35 01/28/25 06:35 01/28/25 06:35 FiO2 35 01/27/25 13:00 Oxygen Flow Rate (L/min) 4 Oxygen Delivery Method Nasal Cannula Weight: 70.3 kg Body Mass Index (BMI) 26.4 Intake & Output: Intake and Output for Last 24 Hours 01/26/25 01/27/25 01/28/25 23:59 23:59 23:59 Intake Total 2692.26 / 2720.06 1336.88 / 1336.88 50 / 50 Output Total 1800 / 1800 2915 / 2915 1100 / 1100 Balance 892.26 / 920.06 -1578.12 / -1578.12 -1050 / -1050 Lab / Micro Data 01/28/25 04:51 01/28/25 04:51 Labs: Laboratory Results - last 24 hr 01/27/25 08:27: WBC 6.4, RBC 3.61 L, Hgb 8.9 L, Hct 27.9 L, MCV 77.3 L, MCH 24.7L, MCHC 31.9 L, RDW Std Deviation 40.8, RDW Coeff of Augustin 14.4, Plt Count 199, MPV 10.2, Immature Gran % (Auto) 0.500, Neut % (Auto) 89.8 H, Lymph % (Auto) 4.4L, Aiken % (Auto) 5.3, Eos % (Auto) 0.0, Baso % (Auto) 0.0, Absolute Neuts (auto)5.8, Absolute Lymphs (auto) 0.28 L, Nucleated RBC % 0, Sodium 138, Potassium 2.8L, Chloride 87 L, Carbon Dioxide 38.5 H, Anion Gap 12, BUN 21 H, Creatinine 0.72, Estim Creat Clear Calc 65.40, Est GFR (MDRD) Non-Af 90, BUN/Creatinine Ratio 28.6 H, Glucose 101 H, Calcium 8.5 01/27/25 17:23: Sodium 140, Potassium 3.6, Chloride 88 L, Carbon Dioxide 41.8 H,Anion Gap 11, BUN 19, Creatinine 0.68 L, Estim Creat Clear Calc 65.40, Est GFR (MDRD) Non-Af 94, BUN/Creatinine Ratio 27.2 H, Glucose 78, Calcium 8.4 01/28/25 04:51: WBC 8.5, RBC 3.73 L, Hgb 9.2 L, Hct 29.6 L, MCV 79.4 L, MCH 24.7L, MCHC 31.1 L, RDW Std Deviation 42.4, RDW Coeff of Augustin 14.6, Plt Count 208, MPV 11.0, Immature Gran % (Auto) 0.500, Neut % (Auto) 88.6 H, Lymph % (Auto) 4.8L, Aiken % (Auto) 6.0, Eos % (Auto) 0.0, Baso % (Auto) 0.1, Absolute Neuts (auto)7.5, Absolute Lymphs (auto) 0.41 L, Nucleated RBC % 0, Sodium 142, Potassium 3.1L, Chloride 88 L, Carbon Dioxide 41.6 H, Anion Gap 12, BUN 16, Creatinine 0.59 L, Estim Creat Clear Calc 63.85, Est GFR (MDRD) Non-Af 98, BUN/Creatinine Ratio 27.8 H, Glucose 77, Calcium 8.3 Micro: Microbiology 01/25/25 08:31 Blood Culture (Wb) - Anticubital Left Blood Culture - Preliminary No growth in 48 hours. 01/25/25 08:31 Blood Culture (Wb) - Anticubital Right Blood Culture - Preliminary No growth in 48 hours. 01/25/25 09:15 Sputum, Induced/Lukens Gram Stain - Final 01/25/25 09:15 Sputum, Induced/Lukens Respiratory Culture - Final Pseudomonas aeruginosa 01/25/25 09:04 Urine Catheter - Catheter Legionella Antigen - Final 01/25/25 09:04 Urine Catheter - Catheter Streptococcus pneumoniae Antigen (M- Final 01/25/25 08:40 Mucosa - Nose SARS-CoV-2, Influenza & RSV (PCR) - Final ABG Data ABG results: ABG 01/27/25 12:04 Specimen Type ART Sample Site L Radial pH 7.55 H Bicarbonate Actual 46.4 H Total CO2 48 Base Excess 24 H O2 Saturation 93 L O2 % 35.0 ABG pCO2 52.7 H ABG pO2 60 L Chao Test Positive O2 Delivery Device Adult Vent Vent Mode PS POC PEEP 5 Rhythm Strip Rhythm Strip: Sinus Tach Rate: 110 Ectopy: PAC(s) Physical Exam Narrative General: Alert, oriented, appears anxious HEENT: Atraumatic, normocephalic Eyes: Anicteric, normal conjunctiva, extraocular movements grossly intact Neck: Supple Respiratory: Scattered wheezes, increased respiratory rate, poor air movement Cardiovascular: Low-grade tachycardia GI: Soft, nontender, nondistended Extremities: Mild pitting edema in feet Musculoskeletal: Moving all extremities Neuro: No overt focal neurological deficits Skin: No rashes appreciated Psych: Cooperative but very anxious Assessment & Plan Assessment/Plan (1) Acute respiratory failure: PLAN: Plan 69-year-old female with a history of severe aortic valve stenosis being worked up for TAVR in [place], COPD with chronic hypoxic respiratory failure on 3 L home O2, anxiety, GERD, restless leg syndrome, A-fib presented to [facility] ED 02/17 for worsening shortness of breath over 2 weeks. Patient required emergent intubation in the ED due to respiratory distress after she didnot tolerate BiPAP. Patient diagnosed with COPD exacerbation from bilateral multifocal pneumonia with chest x-ray and CTA showing suspicion for multifocal pneumonia but no PE. Patient admitted to ICU and started on bronchodilators andSolu-Medrol. # Acute on chronic hypoxic respiratory failure secondary to COPD exacerbation from multifocal pneumonia - On 3 L at baseline O2 -Required intubation in the ED - CT on presentation no PE but suggestive of possible multifocal pneumonia and patient did become febrile -Respiratory culture growing gram-negative rods, now resulted as Pseudomonas - Continue antibiotics, Solu-Medrol, nebs - Sleep Technician on consult -01/28: Status post extubation, growing Pseudomonas in sputum, continue antibiotics, patient javid on nebs and steroids. Received additional IV diuresis yesterday and 1 dose today, proceeding cautiously given her severe aortic stenosis # Hemoptysis and anemia -Blood tinged sputum reportedly in ET tube and hemoglobin down trended to 6.7 from 8.4 on presentation -Patient transfused with a repeat hemoglobin of 8.8 that thus far has stayed stable -Eliquis on hold -01/28: Hemoglobin stable today, if no further episodes may be able to trial resuming Eliquis soon, appreciate pulm recommendations # A-fib with RVR - Cardiology evaluated, currently in sinus rhythm -Echo obtained and showed EF of 70% and severe aortic stenosis -Eliquis on hold -Patient continued on dronedarone, verapamil, and Coreg -01/28: Heart rate has been controlled, continue verapamil and dronedarone, decreased Coreg as she has got this inconsistently due to wide fluctuations in blood pressure, given her severe aortic stenosis will need to adjust these cautiously, holding Eliquis as above, hopeful to resume soon. Does have some low-grade tachycardia at present but is very anxious, suspect this is secondary to nebs and anxiety #Hypokalemia -Replace - Repeat this afternoon -01/28: Had improved however this a.m. was 3.1, further potassium replacement ordered # Severe aortic stenosis - Reportedly being worked up in [place] for TAVR - Had heart cath several weeks ago as part of her workup -Cardiology evaluated, patient trialed on IV Lasix given elevated BNP and pitting edema in the event this also is contributing to her respiratory failure -01/28: Patient received Lasix yesterday x 2 and tolerated this well, has had some fluctuations in blood pressure, another dose of Lasix given today, has got Coreg inconsistently so decreased the dose, still on verapamil and dronedarone, will need to follow-up on discharge in [place] for her TAVR evaluation #Depression/anxiety -01/28: Patient's home anxiety and depression medications resumed Chronic medical problems and/or problems not being actively addressed during today's encounter: #GERD -Continue PPI # Restless leg syndrome -continue patient's home medication regimen #DVT ppx: SCDs Debby Gu MD Charges/Coding Visit Charges Inpatient E&M: 22155 Subs Hosp L2 01/28/25 0994 <Electronically signed by Debby Gu MD> Cosigner Signature (if applicable): CC: ~ Signed [facility] Work Phone: 1(988) 312-772910-05-2025 Progress note Author Austin Pathak [facility] Note Date/Time January 28, 2025 9: 26am [facility] Medical Records Department [address] [place] [address] Progress Note - Sleep Technician 01/28/25 0853 MR#: [id number] Acct: [id number] Name: DENIA GONZALEZ Rep #:[id number] : 1955 69 From: Austin Pathak MD PCP: Dr. Yoseph Fall MD Status:AD M IN Location: ICU ICU03-1 Objective Data Objective Data Vital Signs: Vital Signs Last response 3 Temperature 37.3 C 01/28/25 06:00 Temperature Source Core 01/28/25 06:00 Pulse Rate 94 01/28/25 06:35 Pulse Strength Normal (2+) 01/27/25 20:18 Respiratory Rate 16 01/28/25 06:35 Respiratory Effort Pursed Lip 01/28/25 04:00 Respiratory Depth Normal 01/28/25 04:00 Respiratory Pattern Normal 01/28/25 06:35 Blood Pressure 141/67 H 01/28/25 06:00 Blood Pressure Mean 91 01/28/25 06:00 Blood Pressure Source Monitor 01/28/25 06:00 Blood Pressure Position Semi-Fowlers 01/28/25 06:00 Blood Pressure Location Right Forearm 01/28/25 06:00 Pulse Ox 93 01/28/25 06:35 Oxygen Delivery Method Nasal Cannula 01/28/25 06:35 Oxygen Flow Rate (L/min) 4 01/28/25 06:35 Fraction of Inspired Oxygen (FIO2) 35 01/27/25 13:00 I&O: I&O Last 24 Hours 3 01/27/25 01/27/25 01/28/25 11:59 23:59 11:59 Intake Total 886.88 / 1336.88 450 / 1336.88 50 / 50 Output Total 465 / 2915 2450 / 2915 1100 / 1100 Balance 421.88 / -1578.12 -2000 / -1578.12 -1050 / -1050 I&O: Total Stay 3 01/25/25 08:24 thru 01/28/25 04:46 Intake Total 5120.50 Output Total 6290 Balance -1169.50 Current Meds Ordered / Administered: Current meds ordered / Administered 3 Generic Name Dose Route Start Last Admin Trade Name Freq PRN Reason Stop Dose Admin Acetaminophen 650 mg 01/25/25 12:26 Acetaminophen 325 Mg Tablet PO Q6H PRN PRN Pain 1-10 Or Fever>100.7 Hydrocodone Bitart/Acetaminophen 1 tablet 01/28/25 00:35 01/28/25 01:15 Hydrocodone Bitartrate/Apap 5/325 Tablet PO 1 tablet BID PRN PRN Administration Pain Score 4-10 Albuterol/Ipratropium 3 ml 01/25/25 12:26 01/28/25 06:35 Ipratropium/Albuterol Sulfate 3 Ml Ampul.Neb INHALATION 3 ml Q4H.RT [facility] Administration Apixaban 5 mg 01/25/25 22:00 01/25/25 20:59 Apixaban 5 Mg Tablet PO 5 mg On Hold: 01/26/25 00:29 BID [facility] Administration Carvedilol 3.125 mg 01/28/25 08:00 Car[facility] 3.125 [facility] Protocol Chlorhexidine Gluconate 1 each 01/27/25 10:00 01/27/25 20:10 Chlorhexidine Gluc 2% Cloth 1 Each Towelette TOPICAL 1 each DAILY [facility] Administration Dronedarone 400 mg 01/25/25 17:00 01/27/25 16:39 Dronedarone Hydrochloride 400 Mg Tablet PO Not [facility] Guaifenesin 600 mg 01/28/25 10:00 Guaifenesin 600 Mg Tablet PO BID [facility] Piperacillin Sod/Tazobactam 50 mls @ 12.5 mls/hr 01/25/25 11:00 01/28/25 04:44 Sod 3.375 gm/ Sodium Chloride IV 12.5 mls/hr Q8 [facility] Administration Sodium Chloride 250 mls @ 15 mls/hr 01/25/25 11:51 01/26/25 08:00 IV 0 mls/hr .[id number] PRN Infusion Saline Flush Sodium Chloride 250 mls @ 15 mls/hr 01/25/25 11:51 IV .[id number] PRN Additional IVPB Infusion Pantoprazole Sodium 40 mg/ 100 mls @ 300 mls/hr 01/26/25 10:00 01/27/25 09:55 Sodium Chloride IV Infused Q24 [facility] Infusion Levofloxacin 750 mg in 150 mls @ 100 mls/hr 01/26/25 10:00 01/27/25 11:28 Levaquin Iv IV Infused Q24 [facility] Infusion Potassium Chloride 10 meq in 100 mls @ 100 mls/hr 01/28/25 07:15 IV BOLUS 01/28/25 09:14 Q1H [facility] Methylprednisolone Sodium Succinate 40 mg 01/25/25 14:00 01/28/25 04:44 Methylprednisolone Sod Succ 40 Mg/Ml Vial IV 40 mg Q8 [facility] Administration Montelukast Sodium 10 mg 01/26/25 10:00 01/27/25 08:10 Montelukast 10 Mg Tablet GT 10 mg DAILY [facility] Administration Nystatin 1 applic 01/26/25 22:00 01/27/25 21:40 Nystatin Powder 15gm Bottle TOPICAL 1 applic BID [facility] Administration Protocol Senna/Docusate Sodium 1 tablet 01/27/25 09:30 01/27/25 21:40 Senna/Docusate Sodium 1 Tablet PO 1 tablet BID [facility] Administration Sodium Chloride 10 - 40 ml 01/25/25 11:51 01/28/25 04:45 0.9% Saline Lock 10 Ml Syringe IV 10 ml UD PRN Administration SALINE FLUSH Verapamil HCl 180 mg 01/25/25 22:00 01/27/25 21:40 Verapamil Sr 180 Mg Capsule PO 180 mg BID [facility] Administration Protocol Lab / Micro Data 01/28/25 04:51 01/28/25 04:51 Labs: Laboratory Results - last 24 hr 01/27/25 08:27: Sodium 138, Potassium 2.8 L, Chloride 87 L, Carbon Dioxide 38.5 H, Anion Gap 12, BUN 21 H, Creatinine 0.72, Estim Creat Clear Calc 65.40, Est GFR (MDRD) Non-Af 90, BUN/Creatinine Ratio 28.6 H, Glucose 101 H, Calcium 8.5 01/27/25 17:23: Sodium 140, Potassium 3.6, Chloride 88 L, Carbon Dioxide 41.8 H,Anion Gap 11, BUN 19, Creatinine 0.68 L, Estim Creat Clear Calc 65.40, Est GFR (MDRD) Non-Af 94, BUN/Creatinine Ratio 27.2 H, Glucose 78, Calcium 8.4 01/28/25 04:51: WBC 8.5, RBC 3.73 L, Hgb 9.2 L, Hct 29.6 L, MCV 79.4 L, MCH 24.7L, MCHC 31.1 L, RDW Std Deviation 42.4, RDW Coeff of Augustin 14.6, Plt Count 208, MPV 11.0, Immature Gran % (Auto) 0.500, Neut % (Auto) 88.6 H, Lymph % (Auto) 4.8L, Aiken % (Auto) 6.0, Eos % (Auto) 0.0, Baso % (Auto) 0.1, Absolute Neuts (auto)7.5, Absolute Lymphs (auto) 0.41 L, Nucleated RBC % 0, Sodium 142, Potassium 3.1L, Chloride 88 L, Carbon Dioxide 41.6 H, Anion Gap 12, BUN 16, Creatinine 0.59 L, Estim Creat Clear Calc 63.85, Est GFR (MDRD) Non-Af 98, BUN/Creatinine Ratio 27.8 H, Glucose 77, Calcium 8.3 Micro: Microbiology 01/25/25 08:31 Blood Culture (Wb) - Anticubital Left Blood Culture - Preliminary No growth in 48 hours. 01/25/25 08:31 Blood Culture (Wb) - Anticubital Right Blood Culture - Preliminary No growth in 48 hours. 01/25/25 09:15 Sputum, Induced/Lukens Gram Stain - Final 01/25/25 09:15 Sputum, Induced/Lukens Respiratory Culture - Final Pseudomonas aeruginosa ABG Data ABG results: ABG 01/27/25 12:04 Specimen Type ART Sample Site L Radial pH 7.55 H Bicarbonate Actual 46.4 H Total CO2 48 Base Excess 24 H O2 Saturation 93 L O2 % 35.0 ABG pCO2 52.7 H ABG pO2 60 L Chao Test Positive O2 Delivery Device Adult Vent Vent Mode PS POC PEEP 5 Rhythm Strip Rhythm Strip: Sinus Tach Rate: 110 Ectopy: PAC(s) Assessment and Plan . Assessment and plan: Subjective: Extubated yesterday, now on 4L NC. Feels dyspneic this AM, reports she is feeling anxious and needs her anxiety medication. Only used BiPAP for 1 hr last night Physical Exam: Gen - NAD, well-developed HEENT - MMM. Sclera anicteric Resp - Diminished BS. Mild tachypnea CV - RRR. No m/g/r Abd - Soft, NT, ND Ext - No c/c/e. Skin - No rashes? Neuro - Awake, can follow commands I have reviewed the pertinent vital sign, laboratory, and imaging data. ASSESSMENT: # Acute on chronic hypoxic respiratory failure ? on baseline home 3L NC. Extubated 01/27 # COPD exacerbation # Hemoptysis # Severe ? undergoing workup for TAVR # Afib w/ RVR # Anxiety/panic attacks # h/o NSCLS s/p R lobectomy # Acute on chronic anemia # Restless leg syndrome # h/o tobacco use PLAN: -On 4L NC near home baseline, wean to keep sats > 90%. Encourage IS, mobilization as tolerated -Resume anxiety medication. Encouraged further BiPAP use with sleep and for increased WOB -Give one dose lasix this AM, monitor response. Cautious diuresis given severe . Negative fluid balance yesterday -Cardiology following. Cont dronaderone for Afib -Cont IV solumedrol, duonebs -Cont levaquin given PsA in sputum, s/p several days of zosyn as well -Eliquis held for reported hemoptysis, improved now. May be able to resume soon FEN/GI: Swallow eval Proph DVT/GI: SCDs, protonix The entirety of this encounter was done via telemedicine using both audio and video. Consent was unable to be obtained for the telemedicine encounter due to the patient's mental status. 01/28/25925 <Electronically signed by Austin Pathak MD> Cosigner Signature (if applicable): CC: ~ Signed [facility] Work Phone: 1([phone]) 796-661110-04-2025 Progress note Author Debby Gu [facility] Note Date/Time January 27, 2025 10 :22am [facility] Medical Records Department [address] [place] [address] Progress Note - Hospitalist 01/27/25 0743 MR#: [id number] Acct: [id number] Name: DENIA GONZALEZ Rep #:[id number] : 1955 69 From: Debby Gu MD PCP: Dr. Yoseph Fall MD Status:AD M IN Location: ICU ICU03-1 Reason for Visit Chief Complaint: Progressive worsening shortness of breath for 2 weeks Subjective Subjective Patient remains intubated, weaning down on sedation for SBT, patient difficulty with communicating given continued patient is very frustrated. Discussed with patient's RN, she yesterday had some red frothy secretions in the tube and now has some that are little bit rust colored but seems to be slowing down Objective Data Objective Data Vital Signs: Vital Signs Temp Pulse Resp BP Pulse Ox O2 Del Method O2 Flow Rate 99 F 78 12 114/62 94 Mechanical Ventilator 8 01/27/25 06:00 01/27/25 06:36 01/27/25 06:36 01/27/25 06:00 01/27/25 06:36 01/27/25 06:36 01/25/25 09:04 FiO2 35 01/27/25 06:36 Oxygen Flow Rate (L/min) 8 Oxygen Delivery Method Mechanical Ventilator Weight: 74 kg Body Mass Index (BMI) 27.8 Intake & Output: Intake and Output for Last 24 Hours 01/25/25 01/26/25 01/27/25 23:59 23:59 23:59 Intake Total 1041.36 / 1057.39 2692.26 / 2720.06 332.38 / 332.38 Output Total 475 / 475 1800 / 1800 465 / 465 Balance 566.36 / 582.39 892.26 / 920.06 -132.62 / -132.62 Lab / Micro Data 01/27/25 08:27 01/27/25 08:27 Labs: Laboratory Results - last 24 hr 01/26/25 08:00: PT 18.2 H, INR 1.5, APTT 36.1, Iron 12 L, TIBC 280, Iron Saturation 4.1 L, Unsaturated IBC 268, Ferritin 29, Total Bilirubin 0.33, DirectBilirubin 0.19, AST 21, ALT 19, Alkaline Phosphatase 44, Total Protein 5.4 L, Albumin 3.5, Globulin 1.9 L, Blood Type A POSITIVE, Antibody Screen NEGATIVE, Crossmatch See Detail 01/26/25 11:00: Hgb 6.7 L, Hct 21.4 L 01/26/25 20:46: Hgb 8.8 L, Hct 26.2 L, Retic Count 2.14 H, Immature Retic Fraction 16.90 H, Retic Hgb Equivalent 22.9 L 01/27/25 00:15: Hgb 8.5 L, Hct 25.8 L Micro: Microbiology 01/25/25 09:15 Sputum, Induced/Lukens Gram Stain - Final 01/25/25 09:15 Sputum, Induced/Lukens Respiratory Culture - Preliminary GNR Poss Pseudomonas sp 01/25/25 09:04 Urine Catheter - Catheter Legionella Antigen - Final 01/25/25 09:04 Urine Catheter - Catheter Streptococcus pneumoniae Antigen (M- Final 01/25/25 08:40 Mucosa - Nose SARS-CoV-2, Influenza & RSV (PCR) - Final ABG Data ABG results: ABG 01/27/25 04:31 Specimen Type ART Sample Site L Radial pH 7.49 H Bicarbonate Actual 43.7 H Total CO2 45 Base Excess 20 H O2 Saturation 95 O2 % 35.0 ABG pCO2 57.2 H ABG pO2 72 L Chao Test N/A Respiration Rate 12 O2 Delivery Device Adult Vent Vent Mode AC Tidal Volume 400.0 POC PEEP 5 Radiography Diagnostic Testing: Radiology Impression Chest X-Ray 01/26/25 08:15 IMPRESSION: No new acute cardiopulmonary process. Nasogastric tube coiled in the stomach. The tip is directed back towards the epigastrium. Reading Location: [id number] Echocardiogram 01/26/25 08:59 Interpretation Summary Severe aortic stenosis. The estimated ejection fraction is 70 %. Ordering Physician: Alessandro Palma Referring Physician: Yoseph Fall Performed By: Lizzette Middleton, RDCS, RVT X-Ray 01/26/25 09:28 IMPRESSION: Repositioned and satisfactory located NG tube. Reading Location: [id number] Chest X-Ray 10/04/25 03:05 IMPRESSION: Endotracheal tube is in good position. Enteric feeding tube is in good position with its tip extending below the level of the left hemidiaphragm. Unchanged emphysema. Interval appearance of bilateral basilar atelectatic pulmonary changes. Reading Location: [place] [address] Rhythm Strip Rhythm Strip: Sinus Tach Rate: 110 Ectopy: PAC(s) Physical Exam Narrative General: Intubated, frustrated HEENT: Atraumatic, normocephalic Eyes: Eyes closed, no spontaneous opening Neck: Supple Respiratory: Mechanically ventilated, diffuse wheezing Cardiovascular: Regular rate, systolic ejection murmur appreciated GI: Soft, nontender Extremities: 2+ lower extremity edema Musculoskeletal: Moving all extremities Neuro: No overt abnormalities appreciated Skin: No rashes appreciated Psych: Seems to attempt to cooperate but is frustrated Assessment & Plan Assessment/Plan (1) Acute respiratory failure: PLAN: Plan 69-year-old female with a history of severe aortic valve stenosis being worked up for TAVR in [place], COPD with chronic hypoxic respiratory failure on 3 L home O2, anxiety, GERD, restless leg syndrome, A-fib presented to [facility] ED 02/17 for worsening shortness of breath over 2 weeks. Patient required emergent intubation in the ED due to respiratory distress after she didnot tolerate BiPAP. Patient diagnosed with COPD exacerbation from bilateral multifocal pneumonia with chest x-ray and CTA showing suspicion for multifocal pneumonia but no PE. Patient admitted to ICU and started on bronchodilators andSolu-Medrol. # Acute on chronic hypoxic respiratory failure secondary to COPD exacerbation from multifocal pneumonia - On 3 L at baseline O2 -Required intubation in the ED - CT on presentation no PE but suggestive of possible multifocal pneumonia and patient did become febrile -Respiratory culture growing gram-negative rods, now resulted as Pseudomonas - Continue antibiotics, Solu-Medrol, nebs - Sleep Technician on consult # Hemoptysis and anemia -Blood tinged sputum reportedly in ET tube and hemoglobin down trended to 6.7 from 8.4 on presentation -Patient transfused with a repeat hemoglobin of 8.8 that thus far has stayed stable -Eliquis on hold # A-fib with RVR - Cardiology evaluated, currently in sinus rhythm -Echo obtained and showed EF of 70% and severe aortic stenosis -Eliquis on hold -Patient continued on dronedarone, verapamil, and Coreg #Hypokalemia -Replace - Repeat this afternoon # Severe aortic stenosis - Reportedly being worked up in [place] for TAVR - Had heart cath several weeks ago as part of her workup -Cardiology evaluated, patient trialed on IV Lasix given elevated BNP and pitting edema in the event this also is contributing to her respiratory failure #GERD -Continue PPI #Depression/anxiety -Continue home medications # Restless leg syndrome -continue patient's home medication regimen #DVT ppx: SCDs Debby Gu MD Charges/Coding Visit Charges Inpatient E&M: 76621 Subs Hosp L2 01/27/25 1022 <Electronically signed by Debby Gu MD> Cosigner Signature (if applicable): CC: ~ Signed [facility] Work Phone: 1(573) 959-370310-04-2025 Progress note Author Austin Pathak [facility] Note Date/Time January 27, 2025 9: 38am [facility] Medical Records Department [address] [place] [address] Progress Note - Sleep Technician 01/27/25 0850 MR#: [id number] Acct: [id number] Name: DENIA GONZALEZ Rep #:[id number] : 1955 69 From: Austin Pathak MD PCP: Dr. Yoseph Fall MD Status:AD M IN Location: ICU ICU03-1 Objective Data Objective Data Vital Signs: Vital Signs Last response 3 Temperature 37.2 C 01/27/25 08:00 Temperature Source Core 01/27/25 08:00 Pulse Rate 73 01/27/25 08:00 Respiratory Rate 12 01/27/25 08:00 Respiratory Effort Mechanically Ventilated 01/27/25 08:00 Respiratory Depth Normal 01/26/25 04:00 Respiratory Pattern Normal 01/27/25 06:36 Blood Pressure 119/63 01/27/25 08:00 Blood Pressure Mean 81 01/27/25 08:00 Blood Pressure Source Monitor 01/27/25 08:00 Blood Pressure Position Semi-Fowlers 01/27/25 08:00 Blood Pressure Location Right Arm 01/27/25 08:00 Pulse Ox 93 01/27/25 08:00 Oxygen Delivery Method Mechanical Ventilator 01/27/25 08:00 Oxygen Flow Rate (L/min) 8 01/25/25 09:04 Fraction of Inspired Oxygen (FIO2) 35 01/27/25 08:00 I&O: I&O Last 24 Hours 3 01/26/25 01/26/25 01/27/25 11:59 23:59 11:59 Intake Total 1655.58 / 2720.06 1036.68 / 2720.06 533.66 / 533.66 Output Total 100 / 1800 1700 / 1800 465 / 465 Balance 1555.58 / 920.06 -663.32 / 920.06 68.66 / 68.66 I&O: Total Stay 3 01/25/25 08:24 thru 01/27/25 08:00 Intake Total 4267.28 Output Total 2740 Balance 1527.28 Current Meds Ordered / Administered: Current meds ordered / Administered 3 Generic Name Dose Route Start Last Admin Trade Name Freq PRN Reason Stop Dose Admin Acetaminophen 650 mg 01/25/25 12:26 Acetaminophen 325 Mg Tablet PO Q6H PRN PRN Pain 1-10 Or Fever>100.7 Albuterol/Ipratropium 3 ml 01/25/25 12:26 01/27/25 06:38 Ipratropium/Albuterol Sulfate 3 Ml Ampul.Neb INHALATION 3 ml Q4H.RT HINA Administration Apixaban 5 mg 01/25/25 22:00 01/25/25 20:59 Apixaban 5 Mg Tablet PO 5 mg On Hold: 01/26/25 00:29 BID HINA Administration Carvedilol 6.25 mg 01/25/25 17:00 01/27/25 08:09 Carvedilol 6.25 Mg Tablet PO Not [facility] Protocol Chlorhexidine Gluconate 15 ml 01/26/25 22:00 01/27/25 08:11 Chlorhexidine 15 Ml PO 15 ml BID HINA Administration Chlorhexidine Gluconate 1 each 01/27/25 10:00 Chlorhexidine Gluc 2% Cloth 1 Each Towelette TOPICAL DAILY [facility] Dronedarone 400 mg 01/25/25 17:00 01/27/25 08:11 Dronedarone Hydrochloride 400 Mg Tablet PO 400 [facility] Administration Fentanyl Citrate 50 mcg 01/25/25 08:45 Fentanyl 100 Mcg/2 Ml Ampul IV Q2H PRN PRN See dose instructions Propofol 1,000 mg in 100 mls @ 4.44 mls/hr 01/25/25 08:45 01/27/25 08:00 Diprivan CONT INF 40 mcg/kg/min .Q12H HINA 17.8 mls/hr Protocol Titration 10 MCG/KG/MIN Piperacillin Sod/Tazobactam 50 mls @ 12.5 mls/hr 01/25/25 11:00 01/27/25 05:25 Sod 3.375 gm/ Sodium Chloride IV 12.5 mls/hr Q8 HINA Administration Sodium Chloride 250 mls @ 15 mls/hr 01/25/25 11:51 01/26/25 08:00 IV 0 mls/hr .[id number] PRN Infusion Saline Flush Sodium Chloride 250 mls @ 15 mls/hr 01/25/25 11:51 IV .[id number] PRN Additional IVPB Infusion Fentanyl 100 mls @ 5 mls/hr 01/25/25 12:05 01/27/25 08:00 CONT INF 100 mcg/hr UD HINA 10 mls/hr Protocol Titration 50 MCG/HR Pantoprazole Sodium 40 mg/ 100 mls @ 300 mls/hr 01/26/25 10:00 01/26/25 11:03 Sodium Chloride IV Infused Q24 HINA Infusion Levofloxacin 750 mg in 150 mls @ 100 mls/hr 01/26/25 10:00 01/26/25 13:27 Levaquin Iv IV Infused Q24 HINA Infusion Methylprednisolone Sodium Succinate 40 mg 01/25/25 14:00 01/27/25 05:24 Methylprednisolone Sod Succ 40 Mg/Ml Vial IV 40 mg Q8 HINA Administration Montelukast Sodium 10 mg 01/26/25 10:00 01/27/25 08:10 Montelukast 10 Mg Tablet GT 10 mg DAILY HINA Administration Nystatin 1 applic 01/26/25 22:00 01/26/25 22:05 Nystatin Powder 15gm Bottle TOPICAL 1 applic BID HINA Administration Protocol Senna/Docusate Sodium 2 tablet 01/25/25 12:26 Senna/Docusate Sodium 1 Tablet PO BID PRN PRN Constipation Sodium Chloride 10 - 40 ml 01/25/25 11:51 01/27/25 05:24 0.9% Saline Lock 10 Ml Syringe IV 10 ml UD PRN Administration SALINE FLUSH Verapamil HCl 180 mg 01/25/25 22:00 01/27/25 08:10 Verapamil Sr 180 Mg Capsule PO 180 mg BID HINA Administration Protocol Lab / Micro Data 01/27/25 08:27 01/27/25 08:27 Labs: Laboratory Results - last 24 hr 01/26/25 08:00: Iron 12 L, TIBC 280, Iron Saturation 4.1 L, Unsaturated IBC 268,Ferritin 29, Blood Type A POSITIVE, Antibody Screen NEGATIVE, Crossmatch See Detail 01/26/25 11:00: Hgb 6.7 L, Hct 21.4 L 01/26/25 20:46: Hgb 8.8 L, Hct 26.2 L, Retic Count 2.14 H, Immature Retic Fraction 16.90 H, Retic Hgb Equivalent 22.9 L 01/27/25 00:15: Hgb 8.5 L, Hct 25.8 L 01/27/25 08:27: WBC 6.4, RBC 3.61 L, Hgb 8.9 L, Hct 27.9 L, MCV 77.3 L, MCH 24.7L, MCHC 31.9 L, RDW Std Deviation 40.8, RDW Coeff of Augustin 14.4, Plt Count 199, MPV 10.2, Immature Gran % (Auto) 0.500, Neut % (Auto) 89.8 H, Lymph % (Auto) 4.4L, Aiken % (Auto) 5.3, Eos % (Auto) 0.0, Baso % (Auto) 0.0, Absolute Neuts (auto)5.8, Absolute Lymphs (auto) 0.28 L, Nucleated RBC % 0 Micro: Microbiology 01/25/25 09:15 Sputum, Induced/Lukens Gram Stain - Final 01/25/25 09:15 Sputum, Induced/Lukens Respiratory Culture - Preliminary GNR Poss Pseudomonas sp ABG Data ABG results: ABG 01/27/25 04:31 Specimen Type ART Sample Site L Radial pH 7.49 H Bicarbonate Actual 43.7 H Total CO2 45 Base Excess 20 H O2 Saturation 95 O2 % 35.0 ABG pCO2 57.2 H ABG pO2 72 L Chao Test N/A Respiration Rate 12 O2 Delivery Device Adult Vent Vent Mode AC Tidal Volume 400.0 POC PEEP 5 Rhythm Strip Rhythm Strip: Sinus Tach Rate: 110 Ectopy: PAC(s) Imaging Radiology Impression Echocardiogram 01/26/25 08:59 Interpretation Summary Severe aortic stenosis. The estimated ejection fraction is 70 %. Ordering Physician: Alessandro Palma Referring Physician: Yoseph Fall Performed By: Lizzette Middleton, TAMMY, RVT X-Ray 01/26/25 09:28 IMPRESSION: Repositioned and satisfactory located NG tube. Reading Location: [id number] Chest X-Ray 01/27/25 03:05 IMPRESSION: Endotracheal tube is in good position. Enteric feeding tube is in good position with its tip extending below the level of the left hemidiaphragm. Unchanged emphysema. Interval appearance of bilateral basilar atelectatic pulmonary changes. Reading Location[facility] Assessment and Plan . Assessment and plan: Subjective: No acute events o/n. Physical Exam: Gen - NAD, well-developed, intubated HEENT - MMM. ETT in place Resp - CTAB. Breathing nonlabored CV - RRR. No m/g/r Abd - Soft, NT, ND Ext - No c/c/e. Skin - No rashes? Neuro - Sedated, intubated. Can awaken and follow some commands I have reviewed the pertinent vital sign, laboratory, and imaging data. ASSESSMENT: # Acute on chronic hypoxic respiratory failure ? on home 3L NC? # COPD exacerbation # Hemoptysis # Severe ? undergoing workup for TAVR # Afib w/ RVR # Anxiety/panic attacks # h/o NSCLS s/p R lobectomy # Acute on chronic anemia # Restless leg syndrome # h/o tobacco use PLAN: -Cont vent VC 400/12/5/35%. Follow ABG/CXR -Add precedex. Wean sedation and can attempt SAT/SBT -Give additional lasix today, re-evaluate tmrw if additional needed. Cautious diuresis given severe -Cardiology following. Cont dronaderone for Afib -Cont IV solumedrol, duonebs -Cont empiric zosyn/levaquin given h/o PsA and steno. GNR in sputum, f/u final Cx results -Eliquis held for reported hemoptysis, improved today. May be able to resume soon FEN/GI: Start TF today if not extubated Proph DVT/GI: SCDs, protonix Critical Care Time: 50 mins The entirety of this encounter was done via telemedicine using both audio and video. Consent was unable to be obtained for the telemedicine encounter due to the patient's mental status. 01/27/25 0938 <Electronically signed by Austin Pathak MD> Cosigner Signature (if applicable): CC: ~ Signed [facility] Work Phone: 1(193) 437-121010-04-2025 Radiology Diagnostic study [facility]10-03-2025 Progress note Author Alessandro Palma [facility] Note Date/Time January 26, 2025 3: 17pm [facility] Medical Records Department [address] [place] [id number] Progress Note - Hospitalist 01/26/25 0816 MR#: [id number] Acct: [id number] Name: DENIA GONZALEZ Rep #:[id number] : 1955 69 From: Alessandro Liu PCP: Dr. Yoseph Fall MD Status:AD M IN Location: ICU ICU03-1 Reason for Visit Chief Complaint: Progressive worsening shortness of breath for 2 weeks Objective Data Objective Data Vital Signs: Vital Signs Temp Pulse Resp BP Pulse Ox O2 Del Method O2 Flow Rate 99.4 F H 89 12 123/66 H 95 Mechanical Ventilator 8 01/26/25 07:00 01/26/25 07:01 01/26/25 07:01 01/26/25 07:00 01/26/25 07:01 01/26/25 07:01 01/25/25 09:04 FiO2 35 01/26/25 07:01 Oxygen Flow Rate (L/min) 8 Oxygen Delivery Method Mechanical Ventilator Weight: 163 lb 9.328 oz Body Mass Index (BMI) 28.0 Intake & Output: Intake and Output for Last 24 Hours 01/24/25 01/25/25 01/26/25 23:59 23:59 23:59 Intake Total 1041.36 / 1057.39 1326.23 / 1326.23 Output Total 475 / 475 Balance 566.36 / 582.39 1326.23 / 1326.23 Lab / Micro Data 01/26/25 03:25 01/26/25 03:25 Labs: Laboratory Results - last 24 hr 01/25/25 08:15: WBC 12.2 H, RBC 3.52 L, Hgb 8.4 L, Hct 28.8 L, MCV 81.8, MCH 23.9 L, MCHC 29.2 L, RDW Std Deviation 40.7, RDW Coeff of Augustin 13.6, Plt Count 315, MPV 10.5, Immature Gran % (Auto) 0.700, Neut % (Auto) 74.3 H, Lymph % (Auto) 12.5 L, Aiken % (Auto) 11.0 H, Eos % (Auto) 1.3, Baso % (Auto) 0.2, Absolute Neuts (auto) 9.1 H, Absolute Lymphs (auto) 1.53, Nucleated RBC % 0, Sodium 137, Potassium 3.5, Chloride 84 L, Carbon Dioxide 44.1 H, Anion Gap 9, BUN 31 H, Creatinine 0.63 L, Estim Creat Clear Calc 65.65, Est GFR (MDRD) Non-Af 96, BUN/Creatinine Ratio 48.1 H, Glucose 115 H, Calcium 9.0, Phosphorus 4.0, Magnesium 1.8, Total Bilirubin 0.34, Direct Bilirubin 0.17, AST 22, ALT 20, Alkaline Phosphatase 57, Total Creatine Kinase 77, Troponin T High Sens 38 H D, NT pro BNP II 1192 H, Total Protein 6.7, Albumin 4.5, Globulin 2.2, Triglycerides 135 01/25/25 08:40: Lactic Acid 1.9 01/25/25 09:06: Urine Color Yellow, Urine Clarity Sl. Cloudy, Urine pH 6.0, Ur Specific Greenfield 1.025, Urine Protein 500 H, Urine Glucose (UA) Normal, Urine Ketones 5 H, Urine Occult Blood 50 H, Urine Nitrite Negative, Urine Bilirubin Negative, Urine Urobilinogen Normal, Ur Leukocyte Esterase Negative, Urine RBC 0-5 SEEN, Urine WBC 0-5 SEEN, Ur Squamous Epith Cells 0 SEEN, Urine Bacteria 3+,Hyaline Casts 10-25 SEEN, Urine Mucus 0 SEEN 01/25/25 14:54: Troponin T Hi Sens 2 Hr 31 H 01/26/25 00:37: WBC 6.9, RBC 2.92 L, Hgb 7.1 L, Hct 22.8 L, MCV 78.1 L, MCH 24.3L, MCHC 31.1 L D, RDW Std Deviation 39.6, RDW Coeff of Augustin 13.8, Plt Count 212, MPV 11.2, Immature Gran % (Auto) 0.400, Neut % (Auto) 90.9 H, Lymph % (Auto) 4.4L, Aiken % (Auto) 4.2, Eos % (Auto) 0.0, Baso % (Auto) 0.1, Absolute Neuts (auto)6.2, Absolute Lymphs (auto) 0.30 L, Nucleated RBC % 0 01/26/25 03:25: WBC 8.2, RBC 3.08 L, Hgb 7.4 L, Hct 23.7 L, MCV 76.9 L, MCH 24.0L, MCHC 31.2 L, RDW Std Deviation 38.9, RDW Coeff of Augustin 13.9, Plt Count 240, MPV 10.9, Immature Gran % (Auto) 0.500, Neut % (Auto) 91.5 H, Lymph % (Auto) 3.3L, Aiken % (Auto) 4.6, Eos % (Auto) 0.0, Baso % (Auto) 0.1, Absolute Neuts (auto)7.5, Absolute Lymphs (auto) 0.27 L, Nucleated RBC % 0, Sodium 135, Potassium 3.1L, Chloride 86 L, Carbon Dioxide 39.2 H, Anion Gap 10, BUN 26 H, Creatinine 0.68L, Estim Creat Clear Calc 65.19, Est GFR (MDRD) Non-Af 94, BUN/Creatinine Ratio 38.6 H, Glucose 114 H, Calcium 8.4 Micro: Microbiology 01/25/25 09:15 Sputum, Induced/Lukens Gram Stain - Final 01/25/25 09:04 Urine Catheter - Catheter Legionella Antigen - Final 01/25/25 09:04 Urine Catheter - Catheter Streptococcus pneumoniae Antigen (M- Final 01/25/25 08:40 Mucosa - Nose SARS-CoV-2, Influenza & RSV (PCR) - Final ABG Data ABG results: ABG 01/25/25 01/26/25 10:27 05:22 Specimen Type ART ART Sample Site L Brach L Radial pH 7.51 H 7.51 H Bicarbonate Actual 46.3 H 42.4 H Total CO2 48 44 Base Excess 23 H 20 H O2 Saturation 87 L 93 L O2 % 30.0 35.0 ABG pCO2 58.7 H 52.7 H ABG pO2 51 L 64 L Chao Test N/A Respiration Rate 16 12 O2 Delivery Device Adult Vent Adult Vent Vent Mode AC AC Tidal Volume 400.0 400.0 POC PEEP 5 5 Radiography Diagnostic Testing: Radiology Impression Brain CT 01/25/25 08:46 IMPRESSION: CHRONIC CHANGES. NO ACUTE FINDINGS. Reading Location: [facility] Chest CTA 01/25/25 08:51 IMPRESSION: No demonstrated PE, however, the contrast bolus within the pulmonary arteries isnot optimal and a subtle filling defect could be present and overlooked particularly in the distal pulmonary artery branches No thoracic aortic aneurysm or dissection Emphysema with chronic interstitial changes, nonspecific pleural thickening in both hemithoraces, subsegmental atelectasis, and multifocal pneumonitis ET tube is 1 cm above the kaylan and should be pulled back 2-3 cm NG tube tip in the body of the stomach Degenerative bony changes Hiatal hernia with evidence of GE reflux Fatty liver Simple renal cysts, no specific follow-up needed Reading Location: [facility] Chest X-Ray 01/25/25 09:00 IMPRESSION: Tubes and lines in position. There are interstitial infiltrates throughout the right mid and lower lung and left lingular segment. There are trace bilateral effusions. Reading Location: [facility] Rhythm Strip Rhythm Strip: Sinus Tach Rate: 110 Ectopy: PAC(s) Physical Exam Narrative Seen and examined. Overnight events were noted. Patient had episode of A-fib RVR last night and 80mL bolus was given. Patient also had bloody secretions from ET tube/hemoptysis. Eliquis on hold. Lasix was also given overnight. Patient is sedated on propofol and fentanyl. On ventilator. Physical exam General: Sedated HEENT: Atraumatic, PERRLA, EOMI, Normocephalic. Oral: ETT and OG tube Neck: Supple, No JVD, Negative Carotid Bruits Chest wall/Lungs: Air entry diminished in bilateral lung bases. Bilateral expiratory rhonchi. On vent support Cardiovascular: Sinus rhythm, Normal S1,S2, ejection systolic murmur with radiation to carotid Abdomen: Bowel Sounds sluggish, Soft, Non Tender, Non-Distended : No dysuria. No renal angle tenderness. No suprapubic tenderness. Extremities: Mild edema, Capillary Refill Less than 3 Seconds Skin: No rashes, No breakdown Musculoskeletal: No Tenderness to Palpation of Joints or Extremities but patientis seated Neurological: Sedated. Neuroexam unobtainable Psych/Mental Status: Sedated Assessment & Plan Assessment/Plan (1) Acute respiratory failure: PLAN: Plan 1. Acute on chronic combined respiratory failure: Patient is being admitted in ICU, intubated in ED. On vent support, AC mode 40% FiO2/400 mL/5 PEEP.. Sedated. Sleep Technician consulted. On baseline 3 L of oxygen at home 10/3: Noted bloody suction on the ventilator tubing and tracheal tube. Chest x- ray was done in the morning shows no new acute cardiopulmonary process. NG coiled in the stomach. Repeat is directed back towards the epigastrium. Eliquis on hold. ABG 7.51/52.7/64 on 35% FiO2, PEEP 5/TV 400 mL. 2. Suspected COPD exacerbation from bilateral multifocal pneumonia: Patient wasmildly febrile 100.5 Fahrenheit. Chest x-ray and CTPA images individually reviewed and shows interstitial infiltrates in right mid and lower lung and leftmid and lower segment. Suspicion of bilateral multifocal pneumonia. Trace bilateral effusion with blunted bilateral CP angles. CTA chest negative for PE but multifocal pneumonitis. Emphysema with chronic interstitial changes and subsegmental atelectasis. On broad- spectrum antibiotic IV Zosyn. Pneumonia workup ordered. Patient does not have documented PFT or diagnosed COPD but suspected in view of prolonged history of smoking. Patient is being managed on scheduled bronchodilator, IV Solu-Medrol, Mucinex, incentive spirometry and Pep. 01/26: Continue with Dr. Munoz, suctioning. 3. Paroxysmal A-fib: As per EMS EKG it was A-fib RVR heart rate 105 per med. In ED, twelve-lead EKG individually reviewed and shows sinus tachycardia with PAC, ZHANE, LVH, QTc 514 ms/still prolonged QT. Avoid QT prolongation. Currentlyheart rate in 90s in sinus rhythm. On Eliquis 5 mg p.o. twice daily. On verapamil 180 mg twice daily, Multaq 400 mg twice daily, carvedilol 6.25 mg p.o.twice daily. Avoid QT prolonging insulin drug, Levaquin discontinued. Patient on Zosyn 01/26: A-fib RVR: Patient had transient A-fib RVR last night and amiodarone 150 mg IV bolus was given. Limited echo ordered. Rendering Equipment Tender consulted for severeaortic stenosis. 4. Atypical chest pain as documented by EMS with history of valvular heart disease, severe aortic stenosis : It seems patient is undergoing workup for TAVR for severe aortic stenosis. Serial troponins 38, 31. Decreasing trend. 5. Hypertension: Blood pressure is controlled. 6. Restless leg syndrome, Anxiety and depression. History of chronic alcohol use. Home medication conciliation 7. Chronic severe anemia: Patient hemoglobin stays between 8 to 9 g. Admitted with 8.4 current 7.4. Patient not more than 2 Therefore does not meet criteria for acute anemia yet. MCV, MCH and MCHC all are low. RDW on normal. Platelet count normal. Monitored H&H. Microbiology Past 72 Hours 01/25/25 09:15 Sputum, Induced/Lukens Gram Stain - Final 01/25/25 09:04 Urine Catheter - Catheter Legionella Antigen - Final 01/25/25 09:04 Urine Catheter - Catheter Streptococcus pneumoniae Antigen (M- Final 01/25/25 08:40 Mucosa - Nose SARS-CoV-2, Influenza & RSV (PCR) - Final Laboratory Results 01/25/25 08:15: Phosphorus 4.0, Magnesium 1.8, Total Bilirubin 0.34, Direct Bilirubin 0.17, AST 22, ALT 20, Alkaline Phosphatase 57, Total Creatine Kinase 77, Total Protein 6.7, Albumin 4.5, Globulin 2.2, Triglycerides 135 01/25/25 08:40: Lactic Acid 1.9 01/25/25 09:06: Urine Color Yellow, Urine Clarity Sl. Cloudy, Urine pH 6.0, Ur Specific Greenfield 1.025, Urine Protein 500 H, Urine Glucose (UA) Normal, Urine Ketones 5 H, Urine Occult Blood 50 H, Urine Nitrite Negative, Urine Bilirubin Negative, Urine Urobilinogen Normal, Ur Leukocyte Esterase Negative, Urine RBC 0-5 SEEN, Urine WBC 0-5 SEEN, Ur Squamous Epith Cells 0 SEEN, Urine Bacteria 3+,Hyaline Casts 10-25 SEEN, Urine Mucus 0 SEEN 01/25/25 10:27: Specimen Type ART, Sample Site L Brach, pH 7.51 H, Bicarbonate Actual 46.3 H, Total CO2 48, Base Excess 23 H, O2 Saturation 87 L, O2 % 30.0, ABG pCO2 58.7 H, ABG pO2 51 L, Respiration Rate 16, O2 Delivery Device Adult Vent, Vent Mode AC, Tidal Volume 400.0, POC PEEP 5 01/25/25 14:54: Troponin T Hi Sens 2 Hr 31 H 01/26/25 00:37: WBC 6.9, RBC 2.92 L, Hgb 7.1 L, Hct 22.8 L, MCV 78.1 L, MCH 24.3L, MCHC 31.1 L D, RDW Std Deviation 39.6, RDW Coeff of Augustin 13.8, Plt Count 212, MPV 11.2, Immature Gran % (Auto) 0.400, Neut % (Auto) 90.9 H, Lymph % (Auto) 4.4L, Aiken % (Auto) 4.2, Eos % (Auto) 0.0, Baso % (Auto) 0.1, Absolute Neuts (auto)6.2, Absolute Lymphs (auto) 0.30 L, Nucleated RBC % 0 01/26/25 03:25: WBC 8.2, RBC 3.08 L, Hgb 7.4 L, Hct 23.7 L, MCV 76.9 L, MCH 24.0L, MCHC 31.2 L, RDW Std Deviation 38.9, RDW Coeff of Augustin 13.9, Plt Count 240, MPV 10.9, Immature Gran % (Auto) 0.500, Neut % (Auto) 91.5 H, Lymph % (Auto) 3.3L, Aiken % (Auto) 4.6, Eos % (Auto) 0.0, Baso % (Auto) 0.1, Absolute Neuts (auto)7.5, Absolute Lymphs (auto) 0.27 L, Nucleated RBC % 0, Sodium 135, Potassium 3.1L, Chloride 86 L, Carbon Dioxide 39.2 H, Anion Gap 10, BUN 26 H, Creatinine 0.68L, Estim Creat Clear Calc 65.19, Est GFR (MDRD) Non-Af 94, BUN/Creatinine Ratio 38.6 H, Glucose 114 H, Calcium 8.4 01/26/25 05:22: Specimen Type ART, Sample Site L Radial, pH 7.51 H, Bicarbonate Actual 42.4 H, Total CO2 44, Base Excess 20 H, O2 Saturation 93 L, O2 % 35.0, ABG pCO2 52.7 H, ABG pO2 64 L, Chao Test N/A, Respiration Rate 12, O2 Delivery Device Adult Vent, Vent Mode AC, Tidal Volume 400.0, POC PEEP 5 01/26/25 08:00: PT 18.2 H, INR 1.5, APTT 36.1, Total Bilirubin 0.33, Direct Bilirubin 0.19, AST 21, ALT 19, Alkaline Phosphatase 44, Total Protein 5.4 L, Albumin 3.5, Globulin 1.9 L, Blood Type A POSITIVE, Antibody Screen NEGATIVE Clinical Impression(s) from Imaging Studies Chest X-Ray 01/25/25 09:00 IMPRESSION: Tubes and lines in position. There are interstitial infiltrates throughout the right mid and lower lung and left lingular segment. There are trace bilateral effusions. Reading Location: [facility] Charges/Coding Visit Charges Inpatient E&M: 86099 Subs Hosp L3 01/26/25 0904 <Electronically signed by Alessandro Palma MD> Cosigner Signature (if applicable): CC: ~ Signed ADDENDUM by Dr. Alessandro Palma MD on 01/26/25 at 1517 Addendum Acute on chronic severe anemia: Patient baseline hemoglobin around 8.5. Droppedto 6.7. 1 drop PRBC ordered to transfusion and 1 more unit is arranged 01/26/25 1517<Electronically signed by Alessandro Palma MD> Cosigner Signature (if applicable): cc: ~* Signed [facility] Work Phone: 1(652) 410-769910-03-2025 Consult note Author Amy Keenan [facility] Note Date/Time January 26, 2025 3: 09pm [facility] Medical Records Department [address] [place] [address] Consultation - Cardiology 01/26/25 1458 MR#: [id number] Acct: [id number] Name: DENIA GONZALEZ Rep #:[id number] : 1955 69 From: Amy good MD PCP: Dr. Yoseph Fall MD Status:AD M IN Location: ICU ICU03-1 Assessment & Plan Assessment/Plan (1) Afib: QUALIFIERS: Atrial fibrillation type: paroxysmal Qualified Code(s): I48.0 - Paroxysmal atrial fibrillation PLAN: Continue current medications. No anticoagulation due to anemia and bleeding. Anticoagulation could be considered as an outpatient if stable. (2) Aortic valve stenosis: QUALIFIERS: Cardiac valve disease etiology: nonrheumatic Qualified Code(s): I35.0 - Nonrheumatic aortic (valve) stenosis PLAN: Being worked up for TAVR. Patient's BNP was elevated and she does have pitting edema. Reasonable to try Lasix 40 mg IV tonight and also tomorrow morning. Her respiratory failure could be a combination of her pulmonary and cardiac issues. Due to her severe , diuretics should be administered cautiously. HPI Consult Data Date of Consult: 01/26/25 HPI Narrative Reason for Consultation: Atrial fibrillation, severe aortic stenosis HPI Narrative: DENIA GONZALEZ, is a 69 F who presents with shortness of breath that has been going on for about 1 to 2 weeks according to her boyfriend. In the emergency room patient was in severe respiratory distress and had to be intubated. Patient is currently intubated but able to respond to questions. The history however is obtained from her boyfriend who is at her bedside. Patient has history of severe arctic stenosis and is being evaluated for TAVR at [facility]. She has history of chronic respiratory failure and is on home oxygen. She has chronic anemia. She recently had GI bleed. She has had multifocal atrial tachycardia in the past. This time it appears that she was in A-fib withRVR upon presentation. Currently she is in sinus rhythm. Patient does have bilateral pedal edema which her boyfriend says has been getting worse over the last 2 weeks. Patient has a drop in hemoglobin and her most recent hemoglobin is 6.7. Blood was noticed in the ET tube per primary service. Patient also hada spike in temperature and is currently on antibiotics for possible pneumonia aswell. [facility] Medical History Palliative care encounter Acute anemia Acute respiratory insufficiency Anxiety Anxiety and depression Respiratory insufficiency COPD with acute exacerbation Afib Aortic valve stenosis RLS (restless legs [...] PO Q12H pain 09/23/14 History 10 MG montelukast 10 mg tablet 10 mg PO DAILY allergies 09/23/14 History 10 MG tiotropium bromide 18 mcg capsule 1 [...] (2.5 mg base)/3 mL nebulization ##30 soln cholecalciferol (vitamin D3) 50 50 mcg PO [...] DAILY fluid overloa d 12/27/24 Unknown History pantoprazole 40 mg tablet,delayed 40 mg PO BID GERD #6 0 tabs 12/30/24 Unknown Rx release verapamil 180 mg 24 hr 180 mg PO BID #60 caps Unknown Rx capsule,extended release dronedarone 400 mg tablet (Multaq) 400 mg PO BID 01/25 Unknown History Allergy/AdvReac Type Severity Reaction Status Date / Time No Known Allergies Allergy Verified 01/25/25 08:25 Family History Mother Hypertension Throat cancer Father Hypertension Stomach cancer Surgical History H/O exploratory laparotomy History of lung surgery History of cholecystectomy Social History household members: significant other and none housing: apartment Smoking Status: Former smoker alcohol intake: former substance use type: does not use Physical Exam Const Constitutional Narrative: Patient is intubated HEENT normocephalic Resp clear to auscultation bilaterally Cardio regular rate Cardio Narrative: Systolic murmur is heard Extremity Extremity Narrative: 1-2+ bilateral edema Charges/Coding Visit Charges Inpatient E&M: 77496 Init Hosp L2 Objective Data Vital Signs: Vital Signs Temp Pulse Resp BP Pulse Ox O2 Del Method O2 Flow Rate 99.5 F H 102 H 14 151/81 H 95 Mechanical Ventilator 8 01/26/25 14:00 01/26/25 14:03 01/26/25 14:03 01/26/25 14:00 01/26/25 14:00 01/26/25 14:00 01/25/25 09:04 FiO2 35 01/26/25 14:00 Oxygen Flow Rate (L/min) 8 Oxygen Delivery Method Mechanical Ventilator Weight: 163 lb 9.328 oz Body Mass Index (BMI) 28.0 Intake & Output: Intake and Output for Last 24 Hours 01/24/25 01/25/25 01/26/25 23:59 23:59 23:59 Intake Total 1041.36 / 1057.39 1867.17 / 1867.17 Output Total 475 / 475 250 / 250 Balance 566.36 / 582.39 1617.17 / 1617.17 Lab / Micro Data 01/26/25 11:00 01/26/25 03:25 Labs: Laboratory Results - last 24 hr 01/25/25 09:06: Urine Color Yellow, Urine Clarity Sl. Cloudy, Urine pH 6.0, Ur Specific Greenfield 1.025, Urine Protein 500 H, Urine Glucose (UA) Normal, Urine Ketones 5 H, Urine Occult Blood 50 H, Urine Nitrite Negative, Urine Bilirubin Negative, Urine Urobilinogen Normal, Ur Leukocyte Esterase Negative, Urine RBC 0-5 SEEN, Urine WBC 0-5 SEEN, Ur Squamous Epith Cells 0 SEEN, Urine Bacteria 3+,Hyaline Casts 10-25 SEEN, Urine Mucus 0 SEEN 01/25/25 14:54: Troponin T Hi Sens 2 Hr 31 H 01/26/25 00:37: WBC 6.9, RBC 2.92 L, Hgb 7.1 L, Hct 22.8 L, MCV 78.1 L, MCH 24.3L, MCHC 31.1 L D, RDW Std Deviation 39.6, RDW Coeff of Augustin 13.8, Plt Count 212, MPV 11.2, Immature Gran % (Auto) 0.400, Neut % (Auto) 90.9 H, Lymph % (Auto) 4.4L, Aiken % (Auto) 4.2, Eos % (Auto) 0.0, Baso % (Auto) 0.1, Absolute Neuts (auto)6.2, Absolute Lymphs (auto) 0.30 L, Nucleated RBC % 0 01/26/25 03:25: WBC 8.2, RBC 3.08 L, Hgb 7.4 L, Hct 23.7 L, MCV 76.9 L, MCH 24.0L, MCHC 31.2 L, RDW Std Deviation 38.9, RDW Coeff of Augustin 13.9, Plt Count 240, MPV 10.9, Immature Gran % (Auto) 0.500, Neut % (Auto) 91.5 H, Lymph % (Auto) 3.3L, Aiken % (Auto) 4.6, Eos % (Auto) 0.0, Baso % (Auto) 0.1, Absolute Neuts (auto)7.5, Absolute Lymphs (auto) 0.27 L, Nucleated RBC % 0, Sodium 135, Potassium 3.1L, Chloride 86 L, Carbon Dioxide 39.2 H, Anion Gap 10, BUN 26 H, Creatinine 0.68L, Estim Creat Clear Calc 65.19, Est GFR (MDRD) Non-Af 94, BUN/Creatinine Ratio 38.6 H, Glucose 114 H, Calcium 8.4 01/26/25 08:00: PT 18.2 H, INR 1.5, APTT 36.1, Iron 12 L, TIBC 280, Iron Saturation 4.1 L, Unsaturated IBC 268, Ferritin 29, Total Bilirubin 0.33, DirectBilirubin 0.19, AST 21, ALT 19, Alkaline Phosphatase 44, Total Protein 5.4 L, Albumin 3.5, Globulin 1.9 L, Blood Type A POSITIVE, Antibody Screen NEGATIVE 01/26/25 11:00: Hgb 6.7 L, Hct 21.4 L Micro: Microbiology 01/25/25 09:15 Sputum, Induced/Lukens Gram Stain - Final 01/25/25 09:15 Sputum, Induced/Lukens Respiratory Culture - Preliminary GNR Poss Pseudomonas sp 01/25/25 09:04 Urine Catheter - Catheter Legionella Antigen - Final 01/25/25 09:04 Urine Catheter - Catheter Streptococcus pneumoniae Antigen (M- Final ABG Data ABG results: ABG 01/26/25 05:22 Specimen Type ART Sample Site L Radial pH 7.51 H Bicarbonate Actual 42.4 H Total CO2 44 Base Excess 20 H O2 Saturation 93 L O2 % 35.0 ABG pCO2 52.7 H ABG pO2 64 L Chao Test N/A Respiration Rate 12 O2 Delivery Device Adult Vent Vent Mode AC Tidal Volume 400.0 POC PEEP 5 Rhythm Strip Rhythm Strip: Sinus Tach Rate: 110 Ectopy: PAC(s) Cardiology Labs/Tests 01/25/25 09:06: Urine Color Yellow, Urine Clarity Sl. Cloudy, Urine pH 6.0, Ur Specific Greenfield 1.025, Urine Protein 500 H, Urine Glucose (UA) Normal, Urine Ketones 5 H, Urine Occult Blood 50 H, Urine Nitrite Negative, Urine Bilirubin Negative, Urine Urobilinogen Normal, Ur Leukocyte Esterase Negative, Urine RBC 0-5 SEEN, Urine WBC 0-5 SEEN 01/26/25 00:37: WBC 6.9, RBC 2.92 L, Hgb 7.1 L, Hct 22.8 L, MCV 78.1 L, MCH 24.3L, MCHC 31.1 L D, Plt Count 212, MPV 11.2, Immature Gran % (Auto) 0.400, Neut % (Auto) 90.9 H, Lymph % (Auto) 4.4 L, Aiken % (Auto) 4.2, Eos % (Auto) 0.0, Baso %(Auto) 0.1, Absolute Neuts (auto) 6.2, Nucleated RBC % 0 01/26/25 03:25: WBC 8.2, RBC 3.08 L, Hgb 7.4 L, Hct 23.7 L, MCV 76.9 L, MCH 24.0L, MCHC 31.2 L, Plt Count 240, MPV 10.9, Immature Gran % (Auto) 0.500, Neut % (Auto) 91.5 H, Lymph % (Auto) 3.3 L, Aiken % (Auto) 4.6, Eos % (Auto) 0.0, Baso %(Auto) 0.1, Absolute Neuts (auto) 7.5, Nucleated RBC % 0, Sodium 135, Potassium 3.1 L, Chloride 86 L, Carbon Dioxide 39.2 H, Anion Gap 10, BUN 26 H, Creatinine 0.68 L, Est GFR (MDRD) Non-Af 94, BUN/Creatinine Ratio 38.6 H, Glucose 114 H, Calcium 8.4 01/26/25 05:22: pH 7.51 H, Bicarbonate Actual 42.4 H, Base Excess 20 H, O2 Saturation 93 L, ABG pCO2 52.7 H, ABG pO2 64 L, Chao Test N/A 01/26/25 08:00: PT 18.2 H, INR 1.5, APTT 36.1, Iron 12 L, TIBC 280, Iron Saturation 4.1 L, Ferritin 29, Total Bilirubin 0.33, Direct Bilirubin 0.19 01/26/25 11:00: Hgb 6.7 L, Hct 21.4 L Rhythm: EKG: ECHO: Stress Test: Cardiac Cath: PCI: CT Surgery: Holter monitor: EPS: PPM: CXR: Chest CT Scan: Radiography Diagnostic Testing: Radiology Impression Chest X-Ray 01/26/25 08:15 IMPRESSION: No new acute cardiopulmonary process. Nasogastric tube coiled in the stomach. The tip is directed back towards the epigastrium. Reading Location: [id number] X-Ray 01/26/25 09:28 IMPRESSION: Repositioned and satisfactory located NG tube. Reading Location: [facility] Risk Score for UA/STEMI Assesmment (YES = 1) Risk Stratification Applicable: No 01/26/25 1509 <Electronically signed by Amy Keenan MD> Cosigner Signature (if applicable): CC: Dr. Yoseph Fall MD~ Signed [facility] Work Phone: 1(898) 307-855810-03-2025 Progress note Author Andriy Guzmán [facility] Note Date/Time January 26, 2025 9: 59am [facility] Medical Records Department [address] [place] [address] Progress Note - Sleep Technician 01/26/25 0724 MR#: [id number] Acct: [id number] Name: DENIA GONZALEZ Rep #:[id number] : 1955 69 From: Andriy Guzmán DO PCP: Dr. Yoseph Fall MD Status:AD M IN Location: ICU ICU03-1 Assessment & Plan Assessment/Plan (1) Acute respiratory failure: PLAN: Plan RECOMMENDATIONS: 1. Continue assist-control mode of mechanical ventilation. Wean FiO2 and PEEP as tolerated. 2. Continue propofol and fentanyl for sedation. 3. Continue scheduled bronchodilators and steroids. 4. Continue empiric antibiotics. 5. Continue appropriate ICU prophylaxis. 6. Okay to initiate tube feeding today from my perspective. 7. Send type and screen. Transfuse if hemoglobin drops below 7 g/dL. IMPRESSIONS: 1. Acute on chronic combined respiratory failure Unclear if this was truly precipitated by the patient's COPD with concurrent panic attacks versus sequelae of her valvular heart disease. She is currently being worked up for a TAVR in [place]. In addition, she has a known extensive tobacco abuse history with a questionable history of COPD, despite never having completed pulmonary function studies or having been evaluated by a pulmonologistin the past. According to her , she has a baseline oxygen requirement of3 L/min. Her CT scan was not overtly concerning for a focal infiltrate or consolidation to suggest pneumonia. However, the patient did ultimately spike afever. Therefore, antibiotics were initiated. It does appear that she has grown both stenotrophomonas and Pseudomonas from sputum recently. The patient will be maintained on scheduled bronchodilators and steroids. 2. History of valvular heart disease/restless leg syndrome/anxiety/depression/former tobacco dependency/history of non-small cell lung cancer status post right lobectomy Complicates care, management, recovery and prognosis. Continue supportive measures as noted above. Okay to initiate tube feeding from my perspective. TIME: 33 minutes of critical care time, independent of procedures, was spent addressing the patient's acute on chronic combined respiratory failure, review of all data and collaboration with the care team. Subjective Subjective The patient was seen and examined at the bedside this morning. Events from the last 24 hours have been reviewed. The patient is currently afebrile, hemodynamically stable and maintaining appropriate oxygen saturations on assist-control mode of mechanical ventilation with an FiO2 requirement of 35% and PEEP of 5. Nursing staff reported that the patient has been having bloody secretionsfrom her endotracheal tube overnight. She is currently documented to be overallnet +1.9 L for the hospitalization. White blood cell count is normal. Hemoglobin was noted to be 7.4 g/dL with a platelet count of 240,000. INR is within normal limits at 1.5. ABG was notable for a pH of 7.5 with a pCO2 of 52 and pO2 of 64. Chemistry profile was notable for a potassium of 3.1 with a bicarbonate of 39 and creatinine of 0.68. Liver function is within normal limits. Objective Data Objective Data The patient's most recent lab work, culture data and imaging studies have all been personally reviewed. Surface echocardiogram from September 2024 demonstrated severe concentric LVH with an ejection fraction of 70% and stage I diastolic dysfunction. Severe aortic stenosis was noted. Blood and sputum cultures are pending. Vital Signs: Vital Signs Temp Pulse Resp BP Pulse Ox O2 Del Method O2 Flow Rate 99.4 F H 78 12 123/66 H 100 Mechanical Ventilator 8 01/26/25 07:00 01/26/25 07:00 01/26/25 07:00 01/26/25 07:00 01/26/25 07:00 01/26/25 07:00 01/25/25 09:04 FiO2 35 01/26/25 07:00 Oxygen Flow Rate (L/min) 8 Oxygen Delivery Method Mechanical Ventilator Weight: 163 lb 9.328 oz Body Mass Index (BMI) 28.0 Intake & Output: Intake and Output for Last 24 Hours 01/24/25 01/25/25 01/26/25 23:59 23:59 23:59 Intake Total 1041.36 / 1057.39 1326.23 / 1326.23 Output Total 475 / 475 Balance 566.36 / 582.39 1326.23 / 1326.23 Lab / Micro Data Attestation: I reviewed the patient's lab results. 01/26/25 03:25 01/26/25 03:25 Labs: Laboratory Results - last 24 hr 01/25/25 08:15: WBC 12.2 H, RBC 3.52 L, Hgb 8.4 L, Hct 28.8 L, MCV 81.8, MCH 23.9 L, MCHC 29.2 L, RDW Std Deviation 40.7, RDW Coeff of Augustin 13.6, Plt Count 315, MPV 10.5, Immature Gran % (Auto) 0.700, Neut % (Auto) 74.3 H, Lymph % (Auto) 12.5 L, Aiken % (Auto) 11.0 H, Eos % (Auto) 1.3, Baso % (Auto) 0.2, Absolute Neuts (auto) 9.1 H, Absolute Lymphs (auto) 1.53, Nucleated RBC % 0, Sodium 137, Potassium 3.5, Chloride 84 L, Carbon Dioxide 44.1 H, Anion Gap 9, BUN 31 H, Creatinine 0.63 L, Estim Creat Clear Calc 65.65, Est GFR (MDRD) Non-Af 96, BUN/Creatinine Ratio 48.1 H, Glucose 115 H, Calcium 9.0, Phosphorus 4.0, Magnesium 1.8, Total Bilirubin 0.34, Direct Bilirubin 0.17, AST 22, ALT 20, Alkaline Phosphatase 57, Total Creatine Kinase 77, Troponin T High Sens 38 H D, NT pro BNP II 1192 H, Total Protein 6.7, Albumin 4.5, Globulin 2.2, Triglycerides 135 01/25/25 08:40: Lactic Acid 1.9 01/25/25 09:06: Urine Color Yellow, Urine Clarity Sl. Cloudy, Urine pH 6.0, Ur Specific Greenfield 1.025, Urine Protein 500 H, Urine Glucose (UA) Normal, Urine Ketones 5 H, Urine Occult Blood 50 H, Urine Nitrite Negative, Urine Bilirubin Negative, Urine Urobilinogen Normal, Ur Leukocyte Esterase Negative, Urine RBC 0-5 SEEN, Urine WBC 0-5 SEEN, Ur Squamous Epith Cells 0 SEEN, Urine Bacteria 3+,Hyaline Casts 10-25 SEEN, Urine Mucus 0 SEEN 01/25/25 14:54: Troponin T Hi Sens 2 Hr 31 H 01/26/25 00:37: WBC 6.9, RBC 2.92 L, Hgb 7.1 L, Hct 22.8 L, MCV 78.1 L, MCH 24.3L, MCHC 31.1 L D, RDW Std Deviation 39.6, RDW Coeff of Augustin 13.8, Plt Count 212, MPV 11.2, Immature Gran % (Auto) 0.400, Neut % (Auto) 90.9 H, Lymph % (Auto) 4.4L, Aiken % (Auto) 4.2, Eos % (Auto) 0.0, Baso % (Auto) 0.1, Absolute Neuts (auto)6.2, Absolute Lymphs (auto) 0.30 L, Nucleated RBC % 0 01/26/25 03:25: WBC 8.2, RBC 3.08 L, Hgb 7.4 L, Hct 23.7 L, MCV 76.9 L, MCH 24.0L, MCHC 31.2 L, RDW Std Deviation 38.9, RDW Coeff of Augustin 13.9, Plt Count 240, MPV 10.9, Immature Gran % (Auto) 0.500, Neut % (Auto) 91.5 H, Lymph % (Auto) 3.3L, Aiken % (Auto) 4.6, Eos % (Auto) 0.0, Baso % (Auto) 0.1, Absolute Neuts (auto)7.5, Absolute Lymphs (auto) 0.27 L, Nucleated RBC % 0, Sodium 135, Potassium 3.1L, Chloride 86 L, Carbon Dioxide 39.2 H, Anion Gap 10, BUN 26 H, Creatinine 0.68L, Estim Creat Clear Calc 65.19, Est GFR (MDRD) Non-Af 94, BUN/Creatinine Ratio 38.6 H, Glucose 114 H, Calcium 8.4 Micro: Microbiology 01/25/25 09:15 Sputum, Induced/Lukens Gram Stain - Final 01/25/25 09:04 Urine Catheter - Catheter Legionella Antigen - Final 01/25/25 09:04 Urine Catheter - Catheter Streptococcus pneumoniae Antigen (M- Final 01/25/25 08:40 Mucosa - Nose SARS-CoV-2, Influenza & RSV (PCR) - Final ABG Data ABG results: ABG 01/25/25 01/26/25 10:27 05:22 Specimen Type ART ART Sample Site L Brach L Radial pH 7.51 H 7.51 H Bicarbonate Actual 46.3 H 42.4 H Total CO2 48 44 Base Excess 23 H 20 H O2 Saturation 87 L 93 L O2 % 30.0 35.0 ABG pCO2 58.7 H 52.7 H ABG pO2 51 L 64 L Chao Test N/A Respiration Rate 16 12 O2 Delivery Device Adult Vent Adult Vent Vent Mode AC AC Tidal Volume 400.0 400.0 POC PEEP 5 5 Radiography Diagnostic Testing: Radiology Impression Brain CT 01/25/25 08:46 IMPRESSION: CHRONIC CHANGES. NO ACUTE FINDINGS. Reading Location: [facility] Chest CTA 01/25/25 08:51 IMPRESSION: No demonstrated PE, however, the contrast bolus within the pulmonary arteries isnot optimal and a subtle filling defect could be present and overlooked particularly in the distal pulmonary artery branches No thoracic aortic aneurysm or dissection Emphysema with chronic interstitial changes, nonspecific pleural thickening in both hemithoraces, subsegmental atelectasis, and multifocal pneumonitis ET tube is 1 cm above the kaylan and should be pulled back 2-3 cm NG tube tip in the body of the stomach Degenerative bony changes Hiatal hernia with evidence of GE reflux Fatty liver Simple renal cysts, no specific follow-up needed Reading Location: [id number] Chest X-Ray 01/25/25 09:00 IMPRESSION: Tubes and lines in position. There are interstitial infiltrates throughout the right mid and lower lung and left lingular segment. There are trace bilateral effusions. Reading [facility] Rhythm Strip Rhythm Strip: Sinus Tach Rate: 110 Ectopy: PAC(s) Physical Exam Const Constitutional Narrative: Intubated, sedated mechanically ventilated. HEENT normocephalic and head/scalp atraumatic Mouth: endotracheal tube in place and OG tube in place Eyes PERRL and conjunctivae normal Neck supple General: trachea midline Resp Auscultation: diminished lung sounds; Negative for rales, rhonchi or wheezes Cardio regular rate and regular rhythm Heart Sounds: murmur GI soft to palpation and non-tender GI Narrative: Protuberant abdomen Extremity General Extremity: edema bilateral lower extremity; Negative for clubbing Skin no rashes or lesions noted Neuro Sensorium / Orientation: sedated on vent Charges/Coding Procedures Hospitalists Procedures: 02630 Critical Care 1st Hr 01/26/25 0959 <Electronically signed by Andriy Guzmán DO> Cosigner Signature (if applicable): CC: ~ Signed [facility] Work Phone: 1(857) 320-823310-03-2025 Radiology Diagnostic study [facility]10-03-2025 Radiology Diagnostic study [facility]10-03-2025 Progress note Author Dionne Porter [facility] Note Date/Time January 26, 2025 1: 48am [facility] Medical Records Department [address] [place] [address] Progress Note - Hospitalist 01/26/2529 MR#: [id number] Acct: [id number] Name: DENIA GONZALEZ Rep #:[id number] : 1955 69 From: Dionne Porter MD PCP: Dr. Yoseph Fall MD Status:AD M IN Location: ICU ICU03-1 Hospitalist Note Patient with notable coughing, secretions concerning for hemoptysis. Will hold eliquis, repeat CBC, to be cautious will obtain repeat CTA chest as it is now 24hours out from initial contrast usage and renal function within appropriate range of usage. Certainly this could be related with PNA and her concurrent eliquis usage but would prefer to be cautious. 01/26/2530 <Electronically signed by Dionne Porter MD> Cosigner Signature (if applicable): CC: ~ Signed ADDENDUM by Dr. Dionne Porter MD on 01/26/25 at 0105 Addendum Reviewed with RT, more consistent with frothy red output, still some concern forhemoptysis and overload appearance. From discussion with RT best to attempt to diuresis prior to obtaining CT chest. Given her BP will trial lasix 20 mg IV x 1only to avoid dropping her BP too much. Will hold on CT until diuresis performedand patient more stable to lay flat. 01/26/25104<Electronically signed by Dionne Porter MD> Cosigner Signature (if applicable): cc: ~* Signed ADDENDUM by Dr. Dionne Porter MD on 01/26/25 at 0106 Addendum Spoke with CHARGE OUT CLERKmedical staff services coordinator to delay CT until diuresis. Now they are noting she justwent into PAF RVR with rate 148, BP decreased. Will hold on diuresis until improved, will initiate amiodarone bolus and drip now. Attempt diuresis once ideally BP improves with rate control. 01/26/25105<Electronically signed by Dionne Porter MD> Cosigner Signature (if applicable): cc: ~* Signed ADDENDUM by Dr. Dionne Porter MD on 01/26/25 at 0148 Addendum Patient converted to SR prior to giving the amiodarone bolus with rate 93 and BP120/64. Given her presentation, will administer bolus still and monitor rate. Iftolerated will continue with prior plan in case of recurrence. Will continue with reassessment following bolus amiodarone and if BP still appropriate will then administer low dose IV lasix. 01/26/25 0148<Electronically signed by Dionne Porter MD> Cosigner Signature (if applicable): cc: ~* Signed [facility] Work Phone: 1(451) 501-690310-02-2025 History and physical note Author Alessandro Palma [facility] Hospital Note Date/Time January 25, 2025 4: 43pm [facility] Medical Records Department [address] [place] [id number] H&P Exam - Hospitalist 01/25/25 1004 MR#: [id number] Acct: [id number] Name: DENIA GONZALEZ Rep #:[id number] : 1955 69 From: Alessandro Liu PCP: Dr. Yoseph Fall MD Status:AD M IN Location: ICU ICU03-1 HPI - General General Date of Admission: 01/25/25 Date of Service: 01/25/25 Chief Complaint: Progressive worsening shortness of breath for 2 weeks HPI Narrative DENIA GONZALEZ, is a 69 F came to ED with worsening shortness of breath and when she reached ER she stopped answering question and was not talking, fast and shallow breathing and nonverbal. ED physician tried to put on BiPAP but she could not tolerate and not following commands therefore was intubated emergently. Therefore, the history was mainly from EMS and ED physician. Initially she refused for EMS transfer to ER at 530 but later on it was called out again and transported. Usually she is on 3 L of baseline oxygen with history of COPD and atrial fibrillation on Eliquis. In around EMS gave DuoNeb. As per EMS twelve-lead EKG A-fib at 105/min. As per EMS report, patient had shortness of breath and chest pain. She has worsening of shortness of breath for 2 weeks after her cardiac cath procedure. I think she is being worked up for TAVR in [place]. She was working hard on her breathing and oxygen was turned for later. Patient was more irritable during transport and then he stopped verbalizing few blocks away from the hospital. Social history: She has 30 pack years of smoking. Reported quit recently by . Significant anxiety and panic attack. [facility] Medical History Palliative care encounter Acute anemia Acute respiratory insufficiency Anxiety Anxiety and depression Respiratory insufficiency COPD with acute exacerbation Afib Aortic valve stenosis RLS (restless legs [...] PO Q12H pain 09/23/14 History 10 MG montelukast 10 mg tablet 10 mg PO DAILY allergies 09/23/14 History 10 MG tiotropium bromide 18 mcg capsule 1 [...] (2.5 mg base)/3 mL nebulization ##30 soln cholecalciferol (vitamin D3) 50 50 mcg PO [...] DAILY fluid overloa d 12/27/24 Unknown History pantoprazole 40 mg tablet,delayed 40 mg PO BID GERD #6 0 tabs 12/30/24 Unknown Rx release verapamil 180 mg 24 hr 180 mg PO BID #60 caps Unknown Rx capsule,extended release dronedarone 400 mg tablet (Multaq) 400 mg PO BID 01/25 Unknown History Allergy/AdvReac Type Severity Reaction Status Date / Time No Known Allergies Allergy Verified 01/25/25 08:25 Family History Mother Hypertension Throat cancer Father Hypertension Stomach cancer Surgical History H/O exploratory laparotomy History of lung surgery History of cholecystectomy Social History household members: significant other and none housing: apartment Smoking Status: Former smoker alcohol intake: former substance use type: does not use Vital Signs Vital Signs Vital Signs: 01/25/25 08:25 01/25/25 08:28 01/25/25 08:38 Temperature 97.6 F L Temperature Source Temporal Pulse Rate 115 H Respiratory Rate 25 H Respiratory Effort Short of Breath Labored Accessory Muscle Use Head Bobbing Respiratory Depth Shallow Respiratory Pattern Tachypnea Blood Pressure 174/139 H Blood Pressure Mean 150 Pulse Ox 96 Oxygen Delivery Method Nasal Cannula Nasal Cannula Oxygen Flow Rate (L/min) Fraction of Inspired Oxygen (FIO2) 01/25/25 08:45 01/25/25 09:04 01/25/25 09:10 Temperature Temperature Source Pulse Rate 111 H Respiratory Rate 16 Respiratory Effort Short of Breath Labored Respiratory Depth Respiratory Pattern Tachypnea Blood Pressure Blood Pressure Mean Pulse Ox Oxygen Delivery Method Nasal Cannula Oxygen Flow Rate (L/min) 8 Fraction of Inspired Oxygen (FIO2) 100 01/25/25 09:24 Temperature Temperature Source Pulse Rate 103 H Respiratory Rate 16 Respiratory Effort Respiratory Depth Respiratory Pattern Blood Pressure 142/77 H Blood Pressure Mean 98 Pulse Ox 100 Oxygen Delivery Method Mechanical Ventilator Oxygen Flow Rate (L/min) Fraction of Inspired Oxygen (FIO2) Weight Weight: 164 lb 7.437 oz Body Mass Index (BMI) 28.2 Physical Exam Narrative Seen and examined. Patient is sedated on propofol and fentanyl. On ventilator. Physical exam General: Sedated HEENT: Atraumatic, PERRLA, EOMI, Normocephalic. Oral: ETT and OG tube Neck: Supple, No JVD, Negative Carotid Bruits Chest wall/Lungs: Air entry diminished in bilateral lung bases. Bilateral expiratory rhonchi. On vent support Cardiovascular: Sinus rhythm, Normal S1,S2, No M/G/R Abdomen: Bowel Sounds sluggish, Soft, Non Tender, Non-Distended : No dysuria. No renal angle tenderness. No suprapubic tenderness. Extremities: Mild edema, Capillary Refill Less than 3 Seconds Skin: No rashes, No breakdown Musculoskeletal: No Tenderness to Palpation of Joints or Extremities but patientis seated Neurological: Sedated. Neuroexam unobtainable Psych/Mental Status: Sedated Results Lab / Micro Data 01/25/25 08:15 01/25/25 08:15 Labs: Laboratory Results - last 24 hr 01/25/25 08:15: WBC 12.2 H, RBC 3.52 L, Hgb 8.4 L, Hct 28.8 L, MCV 81.8, MCH 23.9 L, MCHC 29.2 L, RDW Std Deviation 40.7, RDW Coeff of Augustin 13.6, Plt Count 315, MPV 10.5, Immature Gran % (Auto) 0.700, Neut % (Auto) 74.3 H, Lymph % (Auto) 12.5 L, Aiken % (Auto) 11.0 H, Eos % (Auto) 1.3, Baso % (Auto) 0.2, Absolute Neuts (auto) 9.1 H, Absolute Lymphs (auto) 1.53, Nucleated RBC % 0, Sodium 137, Potassium 3.5, Chloride 84 L, Carbon Dioxide 44.1 H, Anion Gap 9, BUN 31 H, Creatinine 0.63 L, Estim Creat Clear Calc 65.65, Est GFR (MDRD) Non-Af 96, BUN/Creatinine Ratio 48.1 H, Glucose 115 H, Calcium 9.0, Total Creatine Kinase 77, Troponin T High Sens 38 H D, NT pro BNP II 1192 H, Triglycerides 135 01/25/25 08:40: Lactic Acid 1.9 Micro: Microbiology 01/25/25 08:40 Mucosa - Nose SARS-CoV-2, Influenza & RSV (PCR) - Final Imaging Radiology Impression Chest X-Ray 01/25/25 09:00 IMPRESSION: Tubes and lines in position. There are interstitial infiltrates throughout the right mid and lower lung and left lingular segment. There are trace bilateral effusions. Reading Location: [facility] Assessment & Plan Assessment/Plan (1) Acute respiratory failure: PLAN: Plan 1. Acute on chronic combined respiratory failure: Patient is being admitted in ICU, intubated in ED. On vent support, AC mode 40% FiO2/400 mL/5 PEEP.. Sedated. Sleep Technician consulted. On baseline 3 L of oxygen at home 2. Suspected COPD exacerbation from bilateral multifocal pneumonia: Patient wasmildly febrile 100.5 Fahrenheit. Chest x-ray and CTPA images individually reviewed and shows interstitial infiltrates in right mid and lower lung and leftmid and lower segment. Suspicion of bilateral multifocal pneumonia. Trace bilateral effusion with blunted bilateral CP angles. CTA chest negative for PE but multifocal pneumonitis. Emphysema with chronic interstitial changes and subsegmental atelectasis. On broad- spectrum antibiotic IV Zosyn. Pneumonia workup ordered. Patient does not have documented PFT or diagnosed COPD but suspected in view ofprolonged history of smoking. Patient is being managed on scheduled bronchodilator, IV Solu-Medrol, Mucinex, incentive spirometry and Pep. 3. Paroxysmal A-fib: As per EMS EKG it was A-fib RVR heart rate 105 per med. In ED, twelve-lead EKG individually reviewed and shows sinus tachycardia with PAC, ZHANE, LVH, QTc 514 ms/still prolonged QT. Avoid QT prolongation. Currentlyheart rate in 90s in sinus rhythm. On Eliquis 5 mg p.o. twice daily. On verapamil 180 mg twice daily, Multaq 400 mg twice daily, carvedilol 6.25 mg p.o.twice daily. Avoid QT prolonging insulin drug, Levaquin discontinued. Patient on Zosyn 4. Atypical chest pain as documented by EMS with history of valvular heart disease, severe aortic stenosis : It seems patient is undergoing workup for TAVR for severe aortic stenosis. Serial troponins 38, 31. Decreasing trend. 5. Hypertension: Blood pressure is controlled. 6. Restless leg syndrome, Anxiety and depression. History of chronic alcohol use. Home medication conciliation Microbiology Past 72 Hours 01/25/25 09:15 Sputum, Induced/Lukens Gram Stain - Final 01/25/25 09:04 Urine Catheter - Catheter Legionella Antigen - Final 01/25/25 09:04 Urine Catheter - Catheter Streptococcus pneumoniae Antigen (M- Final 01/25/25 08:40 Mucosa - Nose SARS-CoV-2, Influenza & RSV (PCR) - Final Laboratory Results 01/25/25 08:15: WBC 12.2 H, RBC 3.52 L, Hgb 8.4 L, Hct 28.8 L, MCV 81.8, MCH 23.9 L, MCHC 29.2 L, RDW Std Deviation 40.7, RDW Coeff of Augustin 13.6, Plt Count 315, MPV 10.5, Immature Gran % (Auto) 0.700, Neut % (Auto) 74.3 H, Lymph % (Auto) 12.5 L, Aiken % (Auto) 11.0 H, Eos % (Auto) 1.3, Baso % (Auto) 0.2, Absolute Neuts (auto) 9.1 H, Absolute Lymphs (auto) 1.53, Nucleated RBC % 0, Sodium 137, Potassium 3.5, Chloride 84 L, Carbon Dioxide 44.1 H, Anion Gap 9, BUN 31 H, Creatinine 0.63 L, Estim Creat Clear Calc 65.65, Est GFR (MDRD) Non-Af 96, BUN/Creatinine Ratio 48.1 H, Glucose 115 H, Calcium 9.0, Phosphorus 4.0, Magnesium 1.8, Total Bilirubin 0.34, Direct Bilirubin 0.17, AST 22, ALT 20, Alkaline Phosphatase 57, Total Creatine Kinase 77, Troponin T High Sens 38 H D, NT pro BNP II 1192 H, Total Protein 6.7, Albumin 4.5, Globulin 2.2, Triglycerides 135 01/25/25 08:40: Lactic Acid 1.9 01/25/25 10:27: Specimen Type ART, Sample Site L Brach, pH 7.51 H, Bicarbonate Actual 46.3 H, Total CO2 48, Base Excess 23 H, O2 Saturation 87 L, O2 % 30.0, ABG pCO2 58.7 H, ABG pO2 51 L, Respiration Rate 16, O2 Delivery Device Adult Vent, Vent Mode AC, Tidal Volume 400.0, POC PEEP 5 01/25/25 14:54: Troponin T Hi Sens 2 Hr 31 H Clinical Impression(s) from Imaging Studies Chest X-Ray 01/25/25 09:00 IMPRESSION: Tubes and lines in position. There are interstitial infiltrates throughout the right mid and lower lung and left lingular segment. There are trace bilateral effusions. Reading Location: [facility] Charges/Coding Visit Charges Inpatient E&M: 06185 Init Hosp L3 Procedures Hospitalists Procedures: 79387 Advncd Care Plan 30 Min 01/25/25 1643 <Electronically signed by Alessandro Palma MD> Cosigner Signature (if applicable): CC: Dr. Yoseph Fall MD; Dr. Alessandro Palma MD~ Signed [facility] Work Phone: 1(926) 955-968410-02-2025 Consult note Author Andriy Guzmán [facility] Note Date/Time January 25, 2025 12 :55pm [facility] Medical Records Department [address] [place] [address] Consultation - Sleep Technician 01/25/25 1147 MR#: [id number] Acct: [id number] Name: DENIA GONZALEZ Rep #:[id number] : 1955 69 From: Andriy Guzmán DO PCP: Dr. Yoseph Fall MD Status:AD M IN Location: ICU ICU03-1 Assessment & Plan Assessment/Plan (1) Acute respiratory failure: PLAN: Plan RECOMMENDATIONS: 1. Continue assist-control mode of mechanical ventilation. Wean FiO2 and PEEP as tolerated. Decrease respiratory rate as ordered. 2. Continue propofol for sedation. Discontinue Versed and start fentanyl for pain control. 3. Start scheduled bronchodilators and steroids. 4. Continue empiric antibiotics. 5. Start appropriate ICU prophylaxis. IMPRESSIONS: 1. Acute on chronic combined respiratory failure Unclear if this was truly precipitated by the patient's COPD with concurrent panic attacks versus sequelae of her valvular heart disease. She is currently being worked up for a TAVR in [place]. In addition, she has a known extensive tobacco abuse history with a questionable history of COPD, despite never having completed pulmonary function studies or having been evaluated by a pulmonologistin the past. According to her , she has a baseline oxygen requirement of3 L/min. Her CT scan was not overtly concerning for a focal infiltrate or consolidation to suggest pneumonia. However, the patient is currently febrile. Therefore, we will plan to continue empiric antibiotics. It does appear that she has grown both stenotrophomonas and Pseudomonas from sputum recently. The patient will be maintained on scheduled bronchodilators and steroids. 2. History of valvular heart disease/restless leg syndrome/anxiety/depression/former tobacco dependency/history of non-small cell lung cancer status post right lobectomy Complicates care, management, recovery and prognosis. Continue supportive measures as noted above. TIME: 35 minutes of critical care time, independent of procedures, was spent addressing the patient's acute on chronic combined respiratory failure, review of all data and collaboration with the care team. HPI Consult Data Date of Consult: 01/25/25 HPI Narrative HPI Narrative: The patient is a 69-year-old female, with a history as outlined below, who presented to the emergency department on January 25 with worsening dyspnea. History was obtained primarily from her , as the patient is currently intubated and mechanically ventilated. According to him, the patient has a known history of COPD and chronic tobacco dependency, which is currently in remission. She has an approximate [id number] smoking history, but reportedly quit recently. Although she has a reported history of COPD, she has never been evaluated by a agency sales development associate, nor has she ever had formal pulmonary function studies completed. He did report that the patient has significant anxiety and experiences frequent panic attacks. In addition, the patient is currently beingworked up for a TAVR in [place] due to a history of severe aortic valve stenosis. Lastly, the patient is supposed to be utilizing 3 L/min of supplemental oxygen at her baseline, but routinely increases her flow rate on her own. On presentation to the emergency department, the patient was noted to be afebrile but was notably tachycardic and tachypneic. Blood pressure was elevated at 174/139 mmHg. The patient was in mari respiratory distress on arrival. Although noninvasive positive pressure ventilatory support was tried empirically, the patient was ultimately intubated. Laboratory evaluation was notable for a white blood cell count of 12,000. Hemoglobin and platelet count were stable. Chemistry profile was notable for a bicarbonate of 44 and creatinine of 0.63. Lactate was within normal limits. Troponin was elevated at38 with a BNP of 1192. Postintubation ABG was notable for a pH of 7.5 with a pCO2 of [address] pO2 of 51. CT head was unremarkable. CTA chest showed no evidence for pulmonary embolism, but did reveal bilateral emphysema with chronicinterstitial changes. There was no focal infiltrate or consolidation. The patient was ultimately placed on antimicrobials, bronchodilators and steroids. She was admitted to the medical intensive care unit for further management. [facility] Medical History Palliative care encounter Acute anemia Acute respiratory insufficiency Anxiety Anxiety and depression Respiratory insufficiency COPD with acute exacerbation Afib Aortic valve stenosis RLS (restless legs [...] PO DAILY allergies 09/23/14 History 10 MG tiotropium bromide 18 mcg capsule 1 [...] thinn e #60 tabs 11/03/24 Unknown Rx Held on 12/30/24. Instructions: Resume on 01/02/25. hold per GI, until 01/02/2025 carvedilol 6.25 mg tablet 6.25 mg PO BID bp #60 tabs 0 11/03/24 Unknown Rx furosemide 20 mg tablet 20 mg PO DAILY fluid overloa d 12/27/24 Unknown History simethicone 250 mg capsule (Gas-X) 250 mg PO BID gas 0 12/27/24 Unknown History pantoprazole 40 mg tablet,delayed 40 mg PO BID #60 tab s 12/30/24 Unknown Rx release prednisone 20 mg tablet 40 mg (2 x 20 mg) PO DAILY # 10 tabs 12/30/24 Unknown Rx verapamil 180 mg 24 hr 180 mg PO BID #60 caps 12/30 Unknown Rx capsule,extended release Allergy/AdvReac Type Severity Reaction Status Date / Time No Known Allergies Allergy Verified 01/25/25 08:25 Family History Mother Hypertension Throat cancer Father Hypertension Stomach cancer Surgical History H/O exploratory laparotomy History of lung surgery History of cholecystectomy Social History household members: significant other and none housing: apartment Smoking Status: Former smoker alcohol intake: former substance use type: does not use ROS Review of Systems ROS Unobtainable: due to endotracheal tube Physical Exam Const Constitutional Narrative: Intubated, sedated mechanically ventilated. HEENT normocephalic and head/scalp atraumatic Mouth: endotracheal tube in place and OG tube in place Eyes PERRL and conjunctivae normal Neck supple General: trachea midline Resp Auscultation: diminished lung sounds; Negative for rales, rhonchi or wheezes Cardio regular rate and regular rhythm Heart Sounds: murmur GI soft to palpation and non-tender GI Narrative: Protuberant abdomen Extremity General Extremity: edema bilateral lower extremity; Negative for clubbing Skin no rashes or lesions noted Neuro Sensorium / Orientation: sedated on vent Lab / Micro Data 01/25/25 08:15 01/25/25 08:15 Labs: Laboratory Results - last 24 hr 01/25/25 08:15: WBC 12.2 H, RBC 3.52 L, Hgb 8.4 L, Hct 28.8 L, MCV 81.8, MCH 23.9 L, MCHC 29.2 L, RDW Std Deviation 40.7, RDW Coeff of Augustin 13.6, Plt Count 315, MPV 10.5, Immature Gran % (Auto) 0.700, Neut % (Auto) 74.3 H, Lymph % (Auto) 12.5 L, Aiken % (Auto) 11.0 H, Eos % (Auto) 1.3, Baso % (Auto) 0.2, Absolute Neuts (auto) 9.1 H, Absolute Lymphs (auto) 1.53, Nucleated RBC % 0, Sodium 137, Potassium 3.5, Chloride 84 L, Carbon Dioxide 44.1 H, Anion Gap 9, BUN 31 H, Creatinine 0.63 L, Estim Creat Clear Calc 65.65, Est GFR (MDRD) Non-Af 96, BUN/Creatinine Ratio 48.1 H, Glucose 115 H, Calcium 9.0, Phosphorus 4.0, Magnesium 1.8, Total Bilirubin 0.34, Direct Bilirubin 0.17, AST 22, ALT 20, Alkaline Phosphatase 57, Total Creatine Kinase 77, Troponin T High Sens 38 H D, NT pro BNP II 1192 H, Total Protein 6.7, Albumin 4.5, Globulin 2.2, Triglycerides 135 01/25/25 08:40: Lactic Acid 1.9 Micro: Microbiology 01/25/25 09:04 Urine Catheter - Catheter Legionella Antigen - Final 01/25/25 09:04 Urine Catheter - Catheter Streptococcus pneumoniae Antigen (M- Final 01/25/25 08:40 Mucosa - Nose SARS-CoV-2, Influenza & RSV (PCR) - Final ABG Data ABG results: ABG 01/25/25 10:27 Specimen Type ART Sample Site L Brach pH 7.51 H Bicarbonate Actual 46.3 H Total CO2 48 Base Excess 23 H O2 Saturation 87 L O2 % 30.0 ABG pCO2 58.7 H ABG pO2 51 L Respiration Rate 16 O2 Delivery Device Adult Vent Vent Mode AC Tidal Volume 400.0 POC PEEP 5 Rhythm Strip Rhythm Strip: Sinus Tach Rate: 110 Ectopy: PAC(s) Imaging Radiology Impression Brain CT 01/25/25 08:46 IMPRESSION: CHRONIC CHANGES. NO ACUTE FINDINGS. Reading Location: [id number] Chest CTA 01/25/25 08:51 IMPRESSION: No demonstrated PE, however, the contrast bolus within the pulmonary arteries isnot optimal and a subtle filling defect could be present and overlooked particularly in the distal pulmonary artery branches No thoracic aortic aneurysm or dissection Emphysema with chronic interstitial changes, nonspecific pleural thickening in both hemithoraces, subsegmental atelectasis, and multifocal pneumonitis ET tube is 1 cm above the kaylan and should be pulled back 2-3 cm NG tube tip in the body of the stomach Degenerative bony changes Hiatal hernia with evidence of GE reflux Fatty liver Simple renal cysts, no specific follow-up needed Reading Location: [facility] Chest X-Ray 01/25/25 09:00 IMPRESSION: Tubes and lines in position. There are interstitial infiltrates throughout the right mid and lower lung and left lingular segment. There are trace bilateral effusions. Reading Location: [facility] Charges/Coding Procedures Hospitalists Procedures: [id number] Critical Care 1st Hr 01/25/25 1255 <Electronically signed by Andriy Guzmán DO> Cosigner Signature (if applicable): CC: Dr. Yoseph Fall MD~ Signed [facility] Work Phone: 1(645) 831-519510-02-2025 Discharge summary Author [facility] Note Date/Time January 25, 2025 10 :35am [facility] Medical Records Department [address] [place] [address] Emergency Department Summary 01/25/25 MR#: [id number] Acct: [id number] Name: DENIA GONZALEZ Rep #:[id number] : 1955 69 From: [facility] PCP: Dr. Yoseph Fall MD Status:RE G ER Location: ED HPI History of Present Illness Chief Complaint: Shortness of Breath Informant: patient Narrative Narrative: Patient is a 69-year-old female with history of chronic respiratory failure on 3L of oxygen at baseline, COPD, atrial fibrillation (on Eliquis) GI bleed last month, hypertension and anxiety/depression presenting with worsening shortness of breath. Per EMS reports patient actually called at 5:30 AM and then refused transport. They were called out again and transported her. They note she was 91% on 4 L when I got her to the cot. They gave her a DuoNeb and route. A couple minutes prior to arrival EMS states she stopped answering questions and was not talk anymore. Upon arrival to the emergency room patient is breathing quickly and is nonverbal. She is not following any commands and is trying to pull off her nonrebreather. Attempted BiPAP as I suspect patient has acute decompensated respiratory failureand likely hypercapnic (end-tidal CO2 is elevated) however patient is not tolerating this. Decision made to intubate for respiratory distress/failure. Attempted to call her significant other Mike as well as son who is listed in the chart but was unable to speak with anyone. After intubation?see procedure notes, patient's significant other Mike did callback. He states she has been having worsening respiratory symptoms for "too long" it sounds like it been a week or 2 ago. She has been refusing to come to the emergency room for evaluation of this. He notes that she did have a heart cath 3 weeks ago at [facility]. He is not sure if she is still on her Eliquis or not. No other information obtained at this time. He understand that she will need admission to the ICU. [facility] Medical History Palliative care encounter Acute anemia Acute respiratory insufficiency Anxiety Anxiety and depression Respiratory insufficiency COPD with acute exacerbation Afib Aortic valve stenosis RLS (restless legs [...] PO DAILY allergies 09/23/14 History 10 MG tiotropium bromide 18 mcg capsule 1 [...] thinn e #60 tabs 11/03/24 Unknown Rx Held on 12/30/24. Instructions: Resume on 01/02/25. hold per GI, until 01/02/2025 carvedilol 6.25 mg tablet 6.25 mg PO BID bp #60 tabs 0 11/03/24 Unknown Rx furosemide 20 mg tablet 20 mg PO DAILY fluid overloa d 12/27/24 Unknown History simethicone 250 mg capsule (Gas-X) 250 mg PO BID gas 0 12/27/24 Unknown History pantoprazole 40 mg tablet,delayed 40 mg PO BID #60 tab s 12/30/24 Unknown Rx release prednisone 20 mg tablet 40 mg (2 x 20 mg) PO DAILY # 10 tabs 12/30/24 Unknown Rx verapamil 180 mg 24 hr 180 mg PO BID #60 caps 12/30 Unknown Rx capsule,extended release Allergy/AdvReac Type Severity Reaction Status Date / Time No Known Allergies Allergy Verified 01/25/25 08:25 Family History Mother Hypertension Throat cancer Father Hypertension Stomach cancer Surgical History H/O exploratory laparotomy History of lung surgery History of cholecystectomy Social History household members: significant other and none housing: apartment Smoking Status: Former smoker alcohol intake: former substance use type: does not use ROS ROS ED Review of Systems ROS Unobtainable: due to mental status EXAM Physical Exam Const Vital Signs: 01/25/25 08:25 01/25/25 08:28 01/25/25 08:30 Temperature 97.6 F L Temperature Source Temporal Pulse Rate 115 H Respiratory Rate 25 H Respiratory Effort Respiratory Depth Respiratory Pattern Blood Pressure 174/139 H Blood Pressure Mean 150 Pulse Ox 96 Oxygen Delivery Method Nasal Cannula Nasal Cannula Oxygen Flow Rate (L/min) Fraction of Inspired Oxygen (FIO2) 40 01/25/25 08:38 01/25/25 08:45 01/25/25 08:54 Temperature Temperature Source Pulse Rate Respiratory Rate Respiratory Effort Short of Breath Labored Accessory Muscle Use Head Bobbing Respiratory Depth Shallow Respiratory Pattern Tachypnea Blood Pressure Blood Pressure Mean Pulse Ox Oxygen Delivery Method Oxygen Flow Rate (L/min) Fraction of Inspired Oxygen (FIO2) 100 100 10/02/25 09:04 01/25/25 09:10 01/25/25 09:24 Temperature Temperature Source Pulse Rate 111 H 103 H Respiratory Rate 16 16 Respiratory Effort Short of Breath Labored Respiratory Depth Respiratory Pattern Tachypnea Blood Pressure 142/77 H Blood Pressure Mean 98 Pulse Ox 100 Oxygen Delivery Method Nasal Cannula Mechanical Ventilator Oxygen Flow Rate (L/min) 8 Fraction of Inspired Oxygen (FIO2) 01/25/25 09:33 01/25/25 10:00 01/25/25 10:22 Temperature 100.4 F H 100.6 F H Temperature Source Core Pulse Rate 109 H 96 104 H Respiratory Rate 16 16 16 Respiratory Effort Respiratory Depth Respiratory Pattern Blood Pressure 134/73 H 111/88 H Blood Pressure Mean 93 95 Pulse Ox 100 95 95 Oxygen Delivery Method Mechanical Ventilator Oxygen Flow Rate (L/min) Fraction of Inspired Oxygen (FIO2) 40 01/25/25 10:22 Temperature 100.6 F H Temperature Source Core Pulse Rate 100 Respiratory Rate 16 Respiratory Effort Respiratory Depth Respiratory Pattern Blood Pressure 111/88 H Blood Pressure Mean 95 Pulse Ox 95 Oxygen Delivery Method Mechanical Ventilator Oxygen Flow Rate (L/min) Fraction of Inspired Oxygen (FIO2) Positive well nourished, well developed and unkempt Constitutional Narrative: Patient in acute respiratory distress General Appearance ED: unkempt and well developed HEENT Reports dry mucous membranes HEENT Narrative: Edentulous on the top teeth. atraumatic Mouth ED: Yes dry mucous membranes Mouth: dry mucous membranes Eyes EOMs intact bilaterally Neck supple and no JVD Resp Resp Narrative: Tachypneic. Wheezing throughout. Diminished breath sounds with shallow respirations Cardio regular rate Rate: tachycardic GI non-tender and non-distended Extremity Extremity Narrative: Pedal edema of the left lower extremity, pitting. This is asymmetric from the right. Unsure about chronicity. Neuro Pilar Coma Scale: document GCS findings Spontaneous Withdraws to Pain Incomprehensible 10 Sensorium / Orientation: alert Motor Exam: general weakness Psych Appearance: unkempt Skin Skin Narrative: Scattered ecchymosis on the abdomen and arms consistent with prior injections orIVs MDM MDM MDM Narrative Medical decision making narrative: Patient evaluated for worsening respiratory symptoms. Upon arrival to the ER isobtunded. Suspect she is in acute respiratory failure and has impending respiratory collapse. Attempted BiPAP however she did not tolerate this. Decision made to intubate. Just prior to intubation patient has decreased respiratory rate and is bagged. Intubation performed, see procedure notes, without any immediate complications. Once patient sedated will obtain workup looking for cause of her respiratory failure which includes not limited to intracranial hemorrhage, symptomatic anemia, pneumonia, COPD exacerbation and pulmonary emboli (unclear if patient's beencompliant with her Eliquis). Was able to speak with significant other and understand that she is intubated and will need admission to an ICU. Patient given broad-spectrum antibiotics (Rocephin and azithromycin) empiricallyfor concern for pneumonia. Was given Solu-Medrol as clinically I suspect this is a COPD exacerbation. X-ray viewed by myself shows some mild pulmonary vascular congestion with small effusion of the right side. ET tube at the level of the aortic arch. NG tube appears to be in appropriate position. Chart review?discharge summary from reviewed. Patient was post to restart her Eliquis on 01/02. Was discharged with a prednisone taper for COPD exacerbation. 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 She is following up with [facility] for her severe concentric left ventricular hypertrophy EF of 70% stage I diastolic dysfunction and severe aortic valve stenosis. Patient is she started propofol drip for sedation. Does require Versed with improved blood pressure and heart rates. Seems more comfortable. Workup most consistent with likely COPD exacerbation and possible underlying pneumonia. Is given broad- spectrum antibiotics as well as Solu-Medrol. Case discussed with hospitalist for admission, Dr. Palma. Also discussed the case with medical lab specialist. While in the ICU patient's does develop a fever of 100.6-100.8. Is given rectalTylenol for this. This is consistent with concern for pneumonia. Case is discussed with Dr. Guzmán. He states life she will likely need broader antibiotics as she has grown out Pseudomonas in the past. Lab Data Attestation: I reviewed the patient's lab results. Labs: Laboratory Results - last 24 hr 01/25/25 01/25/25 08:15 08:40 WBC 12.2 H RBC 3.52 L Hgb 8.4 L Hct 28.8 L MCV 81.8 MCH 23.9 L MCHC 29.2 L RDW Std Deviation 40.7 RDW Coeff of Augustin 13.6 Plt Count 315 MPV 10.5 Immature Gran % (Auto) 0.700 Neut % (Auto) 74.3 H Lymph % (Auto) 12.5 L Aiken % (Auto) 11.0 H Eos % (Auto) 1.3 Baso % (Auto) 0.2 Absolute Neuts (auto) 9.1 H Absolute Lymphs (auto) 1.53 Nucleated RBC % 0 Sodium 137 Potassium 3.5 Chloride 84 L Carbon Dioxide 44.1 H Anion Gap 9 BUN 31 H Creatinine 0.63 L Estim Creat Clear Calc 65.65 Est GFR (MDRD) Non-Af 96 BUN/Creatinine Ratio 48.1 H Glucose 115 H Lactic Acid 1.9 Calcium 9.0 Total Creatine Kinase 77 Troponin T High Sens 38 H D NT pro BNP II 1192 H Triglycerides 135 Radiography Chest X-Ray - ED: 1 View, Read by ED Physician and Read by Radiologist Diagnostic Testing: Clinical Impression(s) from Imaging Studies Brain CT 01/25/25 08:46 IMPRESSION: CHRONIC CHANGES. NO ACUTE FINDINGS. Reading Location: [facility] Chest CTA 01/25/25 08:51 IMPRESSION: No demonstrated PE, however, the contrast bolus within the pulmonary arteries isnot optimal and a subtle filling defect could be present and overlooked particularly in the distal pulmonary artery branches No thoracic aortic aneurysm or dissection Emphysema with chronic interstitial changes, nonspecific pleural thickening in both hemithoraces, subsegmental atelectasis, and multifocal pneumonitis ET tube is 1 cm above the kaylan and should be pulled back 2-3 cm NG tube tip in the body of the stomach Degenerative bony changes Hiatal hernia with evidence of GE reflux Fatty liver Simple renal cysts, no specific follow-up needed Reading Location: [facility] Chest X-Ray 01/25/25 09:00 IMPRESSION: Tubes and lines in position. There are interstitial infiltrates throughout the right mid and lower lung and left lingular segment. There are trace bilateral effusions. [facility] Rhythm Strip Rhythm Strip: Sinus Tach Rate: 110 Ectopy: PAC(s) EKG Initial EKG: Attestation: I personally reviewed and interpreted this EKG as follows: Interpretation: Sinus Tachycardia Comments: Sinus tachycardia at a rate of 110 bpm with PACs Normal axis Right atrial enlargement Minimal voltage criteria for LVH Normal ST segments Compared to prior EKG on 01/18 patient is no longer in atrial fibrillation Prior EKG tracings: available for review Management Discussion w/another healthcare provider: Hospitalist and Shopper Procedures Intubations Intubation Method: orotracheal (7.5 ET tube. 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 Call [facility] ([phone]) or report to the closest Emergency Room. Call 911 if necessary. 01/25/25 1035 <Electronically signed by Mercy Flores DO> Cosigner Signature (if applicable): CC: Dr. Yoseph Fall MD ~ Signed [facility] Work Phone: 1(277) 472-251210-02-2025 NoteAcceptable Specimen? Acceptable Specimen(Evaluation not needed) Gram Stain 4+ Gram positive rods 4+ White Blood Cells 4+ Gram negative rods Rare Epithelial cellsWKettering Health Main CampusComment on above:Performed By: #### M100.2400, M100.1999 ####[facility] [id number] [place], [address](940) 636-946510-02-2025 Radiology Diagnostic study note [facility]10-02-2025 Radiology Diagnostic study [facility]10-02-2025 Radiology Diagnostic study [facility]09-30-2025 NoteHNO ID: [id number] Author: GREGOR FERNANDEZ APRN.TOE LINING CLOSER Service: ? Author Type: Nurse Practitioner Type: Progress Notes Filed: 01/23/2025 09:53 Note Text: PALLIATIVE MEDICINE AT HOME PROGRESS NOTE SERVICE DATE: January 23, 2025 IDENTIFICATION AND INTRODUCTION: Denia Gonzalez is a 69 year old female Pt did not arrive to visit. Vegetable Thinner attempted to reach out, needs rescheduled [facility]09-16-2025 Telephone encounter Note* Telephone Encounter - Naima Haines MA - 01/09/2025 5:07 PM EDT Breanna notified. Naima Haines MA [facility]09-16-2025 Miscellaneous Notes* Telephone Encounter - Naima Haines MA - 01/09/2025 5:07 PM EDT Breanna notified. Naima Haines MA * Telephone Encounter - Yoseph Fall MD - 01/09/2025 5:02 PM EDT Lorazepam is contraindicated due to her chronic opioid use; ordered hydroxyzine instead for prn use Yoseph Fall MD * Telephone Encounter - Sukhi Marrero RN - 01/09/2025 4:37 PM EDT Breanna with [facility] Geophysical Observer calls to give update on anxiety. Breanna [...] not on medication list. Sukhi Marrero RN * Telephone Encounter - Padmini Abbott RN - 01/09/2025 1:23 PM EDT 1) Request: Patient requesting refill of lorazepam [...] with reply to response to #1 above. [phone] Padmini Abbott RN documented [facility] Telephone encounter Note * Telephone Encounter - Yoseph Fall MD - 01/09/2025 5:02 PM EDT Lorazepam is contraindicated due to her chronic opioid use; ordered hydroxyzine instead for prn use Yoseph Fall MD [facility]09-16-2025 Telephone encounter Note* Telephone Encounter - Sukhi Marrero RN - 01/09/2025 4:37 PM EDT Breanna with [facility] Geophysical Observer calls to give update on anxiety. Breanna [...] not on medication list. Sukhi Marrero RN [facility]09-16-2025 Telephone encounter Note* Telephone Encounter - Padmini Abbott RN - 01/09/2025 1:23 PM EDT 1) Request: Patient requesting refill of lorazepam [...] with reply to response to #1 above. [phone] Padmini Abbott RN [facility]09-15-2025 Telephone encounter Note* Telephone Encounter - Martha Baca MA - 01/08/2025 4:09 PM EDT Called and received Edda's identifiable and secure VM. LM with information below from Provider, if questions to contact the office. Martha Baca MA [facility]09-15-2025 Miscellaneous Notes* Telephone Encounter - Martha Baca MA - 01/08/2025 4:09 PM EDT Called and received Edda's identifiable and secure VM. LM with information below from Provider, if questions to contact the office. Martha Baca MA * Telephone Encounter - Nelson Robert APRN.CNP - 01/08/2025 11:01 AM EDT Okay for delay in care. Nelson Robert APRN.CNP * Telephone Encounter - Judy Bliss RN - 01/08/2025 10:05 AM EDT Edda from [facility] calls and states that patient was supposed to have PT evaluation last week but was unable to do. Edda asking for a delay in care order for PT. Please review and advise, Judy Bliss RN documented in [facility] encounterOhio [facility]09-[facility]-2025 Telephone encounter Note * Telephone Encounter - Nelson Robert APRN.CNP - 01/08/2025 11:01 AM EDT Okay for delay in care. Nelson Robert APRN.CNP [facility]09-15-2025 Telephone encounter Note* Telephone Encounter - Judy Bliss RN - 01/08/2025 10:05 AM EDT Edda from [facility] calls and states that patient was supposed to have PT evaluation last week but was unable to do. Edda asking for a delay in care order for PT. Please review and advise, Judy Bliss RN [facility]09-12-2025 Hospital Discharge instructions* Discharge Instructions* Lindsay Cheng APRN - [place] - 01/05/2025 2:29 PM EDT Valve Team will call with follow up appt. Please have non fasting kidney blood work test early nextweek Call your doctor with any medication questions or if you notice any side effects from your medications. If you are unable to fill your medications, please call your Rendering Equipment Tender immediately. The office number is located with [...] against the puncture site and your finger againstthe back of the wrist for 10 minutes, if BLEEDING continues CALL 911. OK to shower. No tub baths, swimming pools or hot tub soaking for three days. Wash site daily with soap and water, dry gently. The healing wound should remain soft and dry. Keepsite clean and dry, no soaking of wrist [...] be gone by tomorrow. documented in this [facility]09-12-2025 Attending History and physical note* Zaria Shea MD - 01/05/2025 11:37 AM EDT H&P reviewed. The patient was examined and there are no changes to the H&P. Source Note - ABRAHAM Reza CNP - 01/04/2025 9:30 AM EDT Images from the original note were not included. Zaria Shea MD Cardiology Preop cardiovascular exam +1 more Dx Cardiac Valve Problem New Patient Reason for Visit Progress Notes Zaria Shea MD (Physician) Cardiology Expand All Collapse [facility] CARDIOLOGY - [place] [address] [facility] [address] Dept: [phone] Dept Visit type: New : 1955 Reason for Visit: New patient, Heart Valve Clinic Assessment and Plan 1. Preop cardiovascular exam - CBC auto differential - Comprehensive metabolic panel - Case Request Continuity Reader: Left and right heart cath / coronary [...] by mouth daily., Disp: , Rfl: HYDROcodone-acetaminophen (Morrow) 5-325 MG tablet, Take 1 tablet by [...] Weight: 155 lb (70.3 kg) Height: 5' 4" (1.626 m) Physical Exam Constitutional: General: She [...] Reviewed and Summarized No results found for: "EFBP", "PLVEF", "LVEFPHYS", "LVEF2D", "EF" Review of tests/labs done/ordered within my specialty: [...] NYHA Classification: Class III Frailty Score :6 [facility] Protocol: No, severe Cosigned by Zaria Shea MD at 01/05/2025 9:02 PM EDT [facility] [employer] Work Phone: 1(653) 793-964209-12-2025 NoteH&P reviewed. The patient was examined and there are no changes to the H&P.[facility]09-12-2025 History and physical note* Zaria Shea MD - 01/05/2025 11:37 AM EDT H&P reviewed. The patient was examined and there are no changes to the H&P. Source Note - ABRAHAM Reza CNP - 01/04/2025 9:30 AM EDT Images from the original note were not included. Zaria Shea MD Cardiology Preop cardiovascular exam +1 more Dx Cardiac Valve Problem New Patient Reason for Visit Progress Notes Zaria Shea MD (Physician) Cardiology Expand All Collapse All [facility] CARDIOLOGY - [place] [address] [facility] BY [facility] [address] Dept: [phone] Dept Visit type: New : 1955 Reason for Visit: New patient, Heart Valve Clinic Assessment and Plan 1. Preop cardiovascular exam - CBC auto differential - Comprehensive metabolic panel - Case Request Continuity Reader: Left and right heart cath / coronary [...] by mouth daily., Disp: , Rfl: HYDROcodone-acetaminophen (Morrow) 5-325 MG tablet, Take 1 tablet by [...] Weight: 155 lb (70.3 kg) Height: 5' 4" (1.626 m) Physical Exam Constitutional: General: She [...] Reviewed and Summarized No results found for: "EFBP", "PLVEF", "LVEFPHYS", "LVEF2D", "EF" Review of tests/labs done/ordered within my specialty: [...] 01/05/2025 9:02 PM EDT documented in this [facility]09-12-2025 Nurse procedure note* Pre- Sedation Documentation - Octavia Luther MD - 01/05/2025 11:07 AM EDT Sedation Plan ASA class 3 - patient [...] Shea MD at 01/05/2025 9:33 PM EDT [facility] [employer] Phone: 1(361) 271-869309-12-2025 Miscellaneous Notes* Pre-Sedation Documentation - Octavia Luther MD - 01/05/2025 11:07 AM EDT Sedation Plan ASA class 3 - patient [...] 01/05/2025 9:33 PM EDT documented in this [facility]09-11-2025 NoteSpoke to patient and significant other. Verified all medications for AM before procedure. Answered all questions, reinforced cath teach. Verbalized understanding.[facility]09-11-2025 History and physical note* Shonda Bacon APRN - [place] - 01/04/2025 9:30 AM EDT Images from the original note were not included. Zaria Shea MD Cardiology Preop cardiovascular exam +1 more Dx Cardiac Valve Problem New Patient Reason for Visit Progress Notes Zaria Shea MD (Physician) Cardiology Expand All Collapse All [facility] CARDIOLOGY - [place] [address] [facility] [address] Dept: [phone] Dept Visit type: New : 1955 Reason for Visit: New patient, Heart Valve Clinic Assessment and Plan 1. Preop cardiovascular exam - CBC auto differential - Comprehensive metabolic panel - Case Request Continuity Reader: Left and right heart cath / coronary [...] , Rfl: cholecalciferol (Vitamin D-3) 50 MCG (1999 UT) capsule, Take by mouth daily., Disp: [...] by mouth daily., Disp: , Rfl: HYDROcodone-acetaminophen (Morrow) 5-325 MG tablet, Take 1 tablet by [...] Weight: 155 lb (70.3 kg) Height: 5' 4" (1.626 m) Physical Exam Constitutional: General: She [...] Reviewed and Summarized No results found for: "EFBP", "PLVEF", "LVEFPHYS", "LVEF2D", "EF" Review of tests/labs done/ordered within my specialty: [...] NYHA Classification: Class III Frailty Score :6 [facility] Protocol: No, severe Cosigned by Zaria Shea MD at 01/05/2025 9:02 PM EDT [facility] [employer] Work Phone: 1(712) 496-472809-11-2025 History and physical note* ABRAHAM Reza CNP - 01/04/2025 9:30 AM EDT Images from the original note were not included. Zaria Shea MD Cardiology Preop cardiovascular exam +1 more Dx Cardiac Valve Problem New Patient Reason for Visit Progress Notes Zaria Shea MD (Physician) Cardiology Expand All Collapse All [facility] CARDIOLOGY - [place] [address] [facility] [address] Dept: [phone] Dept Visit type: New : 1955 Reason for Visit: New patient, Heart Valve Clinic Assessment and Plan 1. Preop cardiovascular exam - CBC auto differential - Comprehensive metabolic panel - Case Request Continuity Reader: Left and right heart cath / coronary [...] , Rfl: cholecalciferol (Vitamin D-3) 50 MCG (1999 [place]) capsule, Take by mouth daily., Disp: [...] by mouth daily., Disp: , Rfl: HYDROcodone-acetaminophen (Morrow) 5-325 MG tablet, Take 1 tablet by [...] Weight: 155 lb (70.3 kg) Height: 5' 4" (1.626 m) Physical Exam Constitutional: General: She [...] Reviewed and Summarized No results found for: "EFBP", "PLVEF", "LVEFPHYS", "LVEF2D", "EF" Review of tests/labs done/ordered within my specialty: [...] NYHA Classification: Class III Frailty Score :6 [place] Protocol: No, severe Cosigned by Zaria Shea MD at 01/05/2025 9:02 PM EDT documented in this [facility]09-11-2025 NotePeJunior MD Cardiology Preop cardiovascular exam +1 more Dx Cardiac Valve Problem New Patient Reason for Visit Progress Notes Zaria Shea MD (Physician) Cardiology Expand All Collapse All [facility] CARDIOLOGY - [place] [address] [facility] [address] Dept: [phone] Dept Visit type: New : 1955 Reason for Visit: New patient, Heart Valve Clinic Assessment and Plan 1. Preop cardiovascular exam - CBC auto differential - Comprehensive metabolic panel - Case Request Continuity Reader: Left and right heart cath / coronary [...] by mouth daily., Disp: , Rfl: HYDROcodone-acetaminophen (Morrow) 5-325 MG tablet, Take 1 tablet by [...] (HCC) Anxiety Aortic st (more content not included)...[facility] [id number] Note Zaria Shea MD Cardiology Preop cardiovascular exam +1 more Dx Cardiac Valve Problem New Patient Reason for Visit Progress Notes Zaria Shea MD (Physician) Cardiology Expand All Collapse All [facility] CARDIOLOGY - [place] [address] [facility] [address] Dept: [phone] Dept Visit type: New : 1955 Reason for Visit: New patient, Heart Valve Clinic Assessment and Plan 1. Preop cardiovascular exam - CBC auto differential - Comprehensive metabolic panel - Case Request Continuity Reader: Left and right heart cath / coronary [...] by mouth daily., Disp: , Rfl: HYDROcodone-acetaminophen (Morrow) 5-325 MG tablet, Take 1 tablet by [...] (HCC) Anxiety Aortic st (more content not included)...[facility]09-11-2025 Note DESIGN ENGINEER AGRICULTURAL EQUIPMENT notified to complete prep for proc orders. Procedure being done: [...] [] EKG on arrival [] BMP [] [facility]09-10-2025 Telephone encounter Note* Telephone Encounter - Judy Bliss RN - 01/03/2025 11:23 AM EDT Breanna notified of below. Voices understanding. Judy Bliss RN [facility]09-10-2025 Miscellaneous Notes* Telephone Encounter - Judy Bliss RN - 01/03/2025 11:23 AM EDT Breanna notified of below. Voices understanding. Judy Bliss RN * Telephone Encounter - Nelson Robert APRN.CNP - 01/03/2025 11:22 AM EDT Noted. Okay with delay in care. Nelson Robert APRN.CNP * Telephone Encounter - Judy Bliss RN - 01/03/2025 8:34 AM EDT Breanna SW from [facility] HH calls and is asking for delay in care till next week. Breanna cannot see patient till next week. Judy Bliss, RN documented in [facility]09-[facility]-2025 Telephone encounter Note * Telephone Encounter - Nelson Robert APRN.CNP - 01/03/2025 11:22 AM EDT Noted. Okay with delay in care. Nelson Robert APRN.CNP [facility]09-10-2025 Telephone encounter Note* Telephone Encounter - Naima Haines MA - 01/03/2025 8:43 AM EDT Rafa notified and voiced understanding. Advised that pt appt has been changed to a VV. Naima Haines MA [facility]09-10-2025 Miscellaneous Notes* Telephone Encounter - Naima Haines MA - 01/03/2025 8:43 AM EDT Rafa notified and voiced understanding. Advised that pt appt has been changed to a VV. Naima Haines MA * Telephone Encounter - Nelson Robert APRN.CNP - 01/02/2025 3:36 PM EDT Okay to proceed with HHC orders. Okay to proceed with social work orders. Okay to switch to virtualvisit. Nelson Robert CNP * Telephone Encounter - Brynn Watson LPN - 01/02/2025 3:24 PM EDT Rafa from [facility] Home [...] to Virtual. Please advise documented in this encounterOhio [facility]09-10-2025 Telephone encounter Note * Telephone Encounter - Judy Bliss RN - 01/03/2025 8:34 AM EDT Breanna SW from [facility] HH calls and is asking for delay in care till next week. Breanna cannot see patient till next week. Judy Bliss RN [facility]09-10-2025 NoteDischarge summary reviewed. Ok to proceed with cath this Wednesday if ok with patient.[facility]09-10-2025 NoteReceived notice patient admitted to [facility] for iron deficiency anemia and acute COPD exacerbation. Will have DESIGN ENGINEER AGRICULTURAL EQUIPMENT review discharge summary to determine if cath on Wednesday is appropriateG[facility]09-09-2025 Telephone encounter Note* Telephone Encounter - Nelson Robert APRN.CNP - 01/02/2025 3:36 PM EDT Okay to proceed with HHC orders. Okay to proceed with social work orders. Okay to switch to virtualvisit. Nelson Robert CNP [facility]09-09-2025 Telephone encounter Note* Telephone Encounter - Brynn Watson LPN - 01/02/2025 3:24 PM EDT Rafa from [facility] Home [...] to change it to Virtual. Please advise [facility]09-08-2025 Telephone encounter Note* Telephone Encounter - Nelson Robert APRN.CNP - 01/01/2025 8:58 AM EDT Noted. Patient has follow up with Dr. Fall scheduled on 01/19. Nelson Robert APRN.CNP [facility]09-08-2025 Miscellaneous Notes* Telephone Encounter - Nelson Robert APRN.CNP - 01/01/2025 8:58 AM EDT Noted. Patient has follow up with Dr. Fall scheduled on 01/19. Nelson Robert APRN.CNP * Telephone Encounter - Sukhi Marrero RN - 12/27/2024 2:47 PM EDT Palma Anguiano with [facility] calls to let provider know that patient was admitted to [facility] last evening for COPD exacerbation. Admission notes available within [facility]. Sukhi Marrero RN [facility] Discharge summary [facility] Medical Records Department [address] [place] [address] Instructions for Home/Discharge Instructions 12/30/24 1141 MR#: [id number] Acct: [id number] Name: DENIA GONZALEZ Rep #:[id number] : 1955 69 From: Lynne Schafer MD PCP: Dr. Yoseph Fall MD Status:AD M IN Discharge Instructions DC O2, CPAP, BIPAP needs Home O2 Discharge instructions: Yes Type of respiratory needs?: Oxygen Oxygen frequency: ContinuousContinuous oxygen liters per minute: 3 Dressing / [...] Providers: Dionne Porter; Stacy Jha; Alessandro Palma; Friend,Kyle; Elma Mendez; Mercedez Joseph; Jackie Henry Instructions [...] can be placed): Home Health Service 12/30/24 1142Lynne Schafer MD CC: SOUND EFFECTS TECHNICIANLaura Mendez; SOUND EFFECTS TECHNICIAN-C Stacy Jha; MADDIC Mercedez Joseph; Dr. Dionne Porter MD; Dr. Yoseph Fall MD; Dr. Alessandro Palma MD;SADIQ Paez; Kyle Mendenhall DO ~ Signed [facility]09-06-2025 [facility] Progress note Author Lynne [facility] Note Date/Time December 29, 2024 4:00pm [facility] Medical Records Department [address] [place] [address] Progress Note 12/29/24 1346 MR#: [id number] Acct: [id number] Name: DENIA GONZALEZ Rep #:[id number] : 1955 69 From: Lynne Schafer MD PCP: Dr. Yoseph Fall MD Status:AD M IN Location: [place] [address] Subjective Subjective Patient seen and examined with [...] 89.9 H, Lymph % (Auto) 6.5 L, Aiken % (Auto) 2.8, Eos % (Auto) 0.0, [...] I diastolic dysfunction. * To follow-up at [facility] as scheduled for evaluation for TAVR. * [...] 24-48 hours Charges/Coding Visit Charges Inpatient E&M: 04413 Subs Hosp L2 12/29/24 1600 <Electronically signed by Lynne Schafer MD> Lynne Schafer MD Cosigner Signature (if applicable): CC: ~ Signed [facility] Work Phone: 1(958) 411-131709-05-2025 Progress note [facility] Medical Records Department [address] [place] [address] Progress Note 12/29/24 1346 MR#: [id number] Acct: [id number] Name: DENIA GONZALEZ Rep #:[id number] : 1955 69 From: Lynne Schafer MD PCP: Dr. Yoseph Fall MD Status:AD M IN Location: [place] [address] Subjective Subjective Patient seen and examined with [...] 89.9 H, Lymph % (Auto) 6.5 L, Aiken % (Auto) 2.8, Eos % (Auto) 0.0, [...] I diastolic dysfunction. * To follow-up at [facility] as scheduled for evaluation for TAVR. * [...] 24-48 hours Charges/Coding Visit Charges Inpatient E&M: 02240 Subs Hosp L2 12/29/24 1600 Lynne Schafer MD Cosigner Signature (if applicable): CC: ~ Signed [facility]09-05-2025 Progress note Author Stacy abdi [facility] Note Date/Time December 29, 2024 11:24am [facility] Medical Records Department [address] [place] [address] Progress Note - Palliative 12/29/24 1109 MR#: [id number] Acct: [id number] Name: DENIA GONZALEZ Rep #:[id number] : 1955 69 From: Stacy Nazario SOUND EFFECTS TECHNICIAN-C PCP: Dr. Yoseph Fall MD Status:AD M IN [facility] Subjective Subjective 12/29/24: Prior to meeting with the patient at bedside I did reviewed documentation and labs from overnight. I then met with Ting at bedside. Shestates that she is feeling "better" today. She states "I know I do not have a lot of time left." I then asked her if she felt that she was ready for hospice and she stated "no not yet." I did explain to her that hospice [...] gets worse because she feels like she "shuts down." She is hopeful that she could go [...] was then gently awakened by myself and POTATO PEELING MACHINE OPERATOR to do her vitals. Patient states that [...] of care conversations as clinical picture evolves. HPI:"The patient is a 69 y/o F w/ PMHx: Valvular Heart Disease, GERD, RLS, Anxiety and Depression, Former tobacco use, Former EtOH Abuse, Hx Non-small celllung cancer status post right lung lobectomy remotely 2003, COPD/Asthma with Chronic Hypoxic Respiratory Failure (2L NC) with allergic rhinitis, HTN who presents to the [facility] ED on 12/26/2024 with history of 3 to 4days of progressively worsening fatigue, malaise, dyspnea with chest tightness and wheezing coupled unfortunately with significant panic attacks whenever she has been attempting to leave the house with a productive cough specifically of yellow sputum prompting ED evaluation be cautious. She does report that she is supposed to have a heart cath at [facility] in the next several weeks because of [...] BUN/creatinine 16/0.64, GFR 96, glucose 112, initial [id number] with repeat delta 25, chest x-ray with [...] x 1 and Solu-Medrol 125 mg IVx 1." Objective Data Objective Data Vital Signs: Vital [...] 89.9 H, Lymph % (Auto) 6.5 L, Aiken % (Auto) 2.8, Eos % (Auto) 0.0, [...] Affect: anxious Charges/Coding Palliative Care Palliative Care: 43465 Follow up 35-49 min Consulation Summary Current admission Current Code Status: full code Associated Diagnosis: COPD Consult Data Date of Consult: 12/28/24 Location of consult: PCU Reason for referral: goals of care and code status Referral source: Sienna Nhung Gilmar Palliative care diagnosis (Summary list): COPD exacerbation Palliative care services/treatment (Accepted, as consult): accepted Case discussed with referring provider: provider notes Palliative Assessment Advanced Directive - Current Admission Advance Directive: Advance Directive ON ADMISSION - REFERENCE 3 Do you have a Healthcare No 12/26/24 21:29 Living Will? Do you have a Healthcare Power No 12/26/24 21:29 of Patent Chemist? Do You Want Additional Declined 12/26/24 21:29 [...] a result of this Palliative Care Encounter: [4044-5862, 9808-4308 ] minutes were spent in total for [...] Cosigner Signature (if applicable): CC: ~ Signed [facility] Work Phone: 1(493) 158-955609-05-2025 Progress note [facility] Medical Records Department [address] [place] [address] Progress Note - Palliative 12/29/24 1109 MR#: [id number] Acct: [id number] Name: DENIA GONZALEZ Rep #:[id number] : 1955 69 From: Stacy WATTS PCP: Dr. Yoseph Fall MD Status:AD M IN Location: [place] [address]- 1 Subjective Subjective 12/29/24: Prior to meeting with the patient at bedside I did reviewed documentation and labs from overnight. I then met with Ting at bedside. Shestates that she is feeling "better" today. She states"I know I do not have a lot of time left." I then asked her if she felt that she was ready for hospice and she stated "no not yet." I did explain to her that hospice [...] stated understanding. Ting continues to be on [facility] oxygen administrationof 3 L and she is [...] breathing gets worsebecause she feels like she "shuts down." She is hopeful that she could go [...] was then gently awakened by myself and POTATO PEELING MACHINE OPERATOR to do her vitals. Patient states that [...] of care conversations as clinical picture evolves. HPI:"The patient is a 69 y/o F w/ PMHx: Valvular Heart Disease, GERD, RLS, Anxiety and Depression, Former tobacco use, Former EtOH Abuse, Hx Non-small celllung cancer status post right lung lobectomyremotely 2003, COPD/Asthma with Chronic Hypoxic Respiratory Failure (2L NC) with allergic rhinitis,HTN who presents to the [facility] ED on 12/26/2024 with history of 3 to 4days of progressively worsening fatigue, malaise, dyspnea with chest tightness and wheezing coupled unfortunately with significant panic attacks whenever she has been attempting to leave the house with a productive cough specifically of yellow sputum prompting ED evaluation be cautious. She does report that she is supposed to have a heart cath at [facility] in the next several weeks because of [...] BUN/creatinine 16/0.64, GFR 96, glucose 112, initial ccomufrb52 with repeat delta 25, chest x-ray with [...] 1 and Solu- Medrol 125 mg IVx 1." Objective Data Objective Data Vital Signs: Vital [...] 89.9 H, Lymph % (Auto) 6.5 L, Aiken % (Auto) 2.8, Eos % (Auto) 0.0, [...] Affect: anxious Charges/Coding Palliative Care Palliative Care: 44203 Follow up 35-49 min Consulation Summary Current [...] a Healthcare Power No 12/26/24 21:29 of Patent Chemist? Do You Want Additional Declined 12/26/24 21:29 [...] a result of this Palliative Care Encounter: [[id number], 9664-5771 ] minutes were spent in total for [...] and no addt'l complaints, except as documented 12/29/241123 Cosigner Signature (if applicable): CC: ~ Signed [facility]09-05-2025 Progress note Author Dionne Porter [facility] Note Date/Time December 28, 2024 11:28pm [facility] Medical Records Department [address] [place] [address] Progress Note - Hospitalist 12/28/242310 MR#: [id number] Acct: [id number] Name: DENIA GONZALEZ Rep #:[id number] : 1955 69 From: Dionne Porter MD PCP: Dr. Yoseph Fall MD Status:AD M IN Location: [place] [address] Hospitalist Note Patient with notable tachycardia, improved with evening medications however blood pressure is now 90/60. Will change from DuoNeb therapies to ipratropium component only for every 4 hours while awake as likely air cells contributing given COPD exacerbation presentation. 12/28/24 231 <Electronically signed by Dionne Porter MD> Cosigner Signature (if applicable): CC: ~ Signed ADDENDUM by Dr. Dionne Porter MD on 12/28/24 at 2326 Addendum EKG obtained and c/w PAF RVR, BP as noted prior low range from recent medications but HR still elevated. Will trial digoxin x 1, 12/28/242326<Electronically signed by Dionne Porter MD> Cosigner Signature (if applicable): cc: ~* Signed [facility] Work Phone: 1(649) 589-308909-04-2025 Progress note [facility] Medical Records Department [address] [place] [address] Progress Note - Hospitalist 12/28/242310 MR#: [id number] Acct: [id number] Name: DENIA GONZALEZ Rep #:[id number] : 1955 69 From: Dionne Porter MD PCP: Dr. Yoseph Fall MD Status:AD M IN Location: [place] [address] Hospitalist Note Patient with notable tachycardia, improved [...] Cosigner Signature (if applicable): cc: ~* Signed [facility]09-04-2025 Consult note Author Joel Lauracherrington hospitalwil[facility]to [facility] Note Date/Time December 28, 2024 3:26pm [facility] Medical Records Department [address] [place] [address] Anesthesia Postop Eval II 12/28/24 1526 MR#: [id number] Acct: [id number] Name: DENIA GONZALEZ Rep #:[id number] : 1955 69 From: Joel WATKINS PCP: Dr. Yoseph Fall MD Status:AD M IN Y Race: C Location: [place] [address] 2-1 Anesthesia Postop Eval I Sum Postop [...] by Joel Hurd CRNA> Date _ Joel Hurd CRNA Cosigner Signature: Date CC: ~ Signed [facility] Work Phone: 1(557) 747-292109-04-2025 Progress note Author Lynne [facility] Note Date/Time December 28, 2024 3:24pm [facility] Medical Records Department [address] [place] [address] Progress Note 12/28/24 1450 MR#: [id number] Acct: [id number] Name: DENIA GONZALEZ Rep #:[id number] : 1955 69 From: Lynne Schafer MD PCP: Dr. Yoseph Fall MD Status:AD M IN Location: [place] [address]- Subjective Subjective Patient seen and examined with [...] Output Total 400 / 400 1 / Balance 120 / 120 900 / 900 [...] 90.6 H, Lymph % (Auto) 5.5 L, Aiken % (Auto) 3.0, Eos % (Auto) 0.0, [...] I diastolic dysfunction. * To follow-up at [facility] as scheduled for evaluation for TAVR. * On Multaq, Coreg and verapamil. * #Hypertension: On Coreg and verapamil. IV hydralazine as needed #History of paroxysmal A-fib: On Coreg and Multaq. Eliquis held in light of anemia. #GERD: On PPI DVT prophylaxis: SCDs Disposition: likely dc tomorrow. Charges/Coding Visit Charges Inpatient E&M: 92477 Subs Hosp L2 12/28/24 1524 <Electronically signed by Lynne Schafer MD> Lynne Schafer MD Cosigner Signature (if applicable): CC: ~ Signed [facility] Work Phone: 1(297) 381-798209-04-2025 Consult note [facility] Medical Records Department [address] [place] [address] Anesthesia Postop Eval II 12/28/24 1526 MR#: [id number] Acct: [id number] Name: DENIA GONZALEZ Rep #:[id number] : 1955 69 From: Joel Nguyen RNA PCP: Dr. Yoseph Fall MD Status:AD M IN Y Race: C Location: [place] [address] 2-1 Anesthesia Postop Eval I Sum Postop [...] No Complications Anesthesia Complication: No 12/28/24 1526 [employer]POSITION [employer]> Date _ Joel Hurd [employer] Cosigner Signature: Date CC: ~ Signed [facility]09-04-2025 Progress note [facility] Medical Records Department [address] [facility] [place] [address] Progress Note 12/28/24 1450 MR#: [id number] Acct: [id number] Name: DENIA GONZALEZ Rep #:[id number] : 1955 69 From: Lynne Schafer MD PCP: Dr. Yoseph Fall MD Status:AD M IN Location: [place] [address] Subjective Subjective Patient seen and examined with [...] 90.6 H, Lymph % (Auto) 5.5 L, Aiken % (Auto) 3.0, Eos % (Auto) 0.0, [...] I diastolic dysfunction. * To follow-up at [facility] as scheduled for evaluation for TAVR. * On Multaq, Coreg and verapamil. * #Hypertension: On Coreg and verapamil. IV hydralazine as needed #History of paroxysmal A-fib: On Coreg and Multaq. Eliquis held in light of anemia. #GERD: On PPI DVT prophylaxis: SCDs Disposition: likely dc tomorrow. Charges/Coding Visit Charges Inpatient E&M: 11934 Subs Hosp L2 12/28/24 1524 Lynne Higigns Signature (if applicable): CC: ~ Signed [facility]09-04-2025 Consult note Author Saul Liao [facility] Note Date/Time December 28, 2024 12:05pm [facility] Medical Records Department [address] [place] [address] Anesthesia Postop Eval I 12/28/24 1202 MR#: [id number] Acct: [id number] Name: EDNIA GONZALEZ Rep #:[id number] : 1955 69 From: Saul Liao PCP: Dr. Yoseph Fall MD Status:AD M IN Y Race: C Location: [place] [address] 2-1 Anesthesia: Postop Eval I Current Vital Signs [...] Saul Higgins Signature: Date CC: ~ Signed [facility] Work Phone: 1(640) [phone] Consult note Author Lawson [facility] Note Date/Time December 28, 2024 11:25am [facility] Medical Records Department [address] [place] [address] Pre-Anesthesia Evaluation 12/28/24 1121 MR#: [id number] Acct: [id number] Name: DENIA GONZALEZ Rep #:[id number] : 1955 69 From: Lawson Henry MD PCP: Dr. Yoseph Fall MD Status:AD M IN Y Race: C Location: [place] [address] 2-1 ASA Classification* ASA Classification ASA Classification: [...] Procedure(s): Esophagogastroduodenoscopy Anesthesia History Anesthesia History - black leather buffer: Anesthesia History - black leather buffer Hx Hospitalization No 05/05/20 07:54 Any Problems [...] sips of water?: No PONV PONV - black leather buffer: PONV - black leather buffer Female HX of Motion Sickness HX of N/V After Surgery Non-Smoker Duration of Surgery greater than 60 minutes Number of Risk Factors PONV Score Height & Weight Height & Weight: Anesthesia: Height & Weight Height 5 ft 4 in 12/28/24 09:46 Weight: 74.8 kg 12/28/24 09:46 Body Mass Index (BMI) 28.3 12/28/24 09:46 Respiratory Assessment Respiratory Assessment - black leather buffer: Respiratory Tract Infection Hx - black leather buffer Hx Respiratory Tract Infection No 12/27/24 20:12 STOP Sleep Apnea STOP Sleep Apnea - black leather buffer: STOP Sleep Apnea - black leather buffer Hx Hypertension Yes 12/26/24 21:29 Hx Sleep [...] Tobacco Use History Tobacco Use History - black leather buffer: Tobacco Use History - black leather buffer Tobacco Use Cigarettes 07/20/23 02:52 Smoking Status Former smoker 12/27/24 00:38 Hx Tobacco Use Yes 12/26/24 21:29 Years Smoking Packs Smoked per Day Smoking Cessation Date was Yes - quit smoking within 15 12/26/24 21:29 within the last 15 years years Hx Smoking Cessation Date 09/22/24 12/26/24 21:29 Hx Smoking Cessation No 12/26/24 21:29 Counseling Hematologic Medial History Hematologic Hx - black leather buffer: Hematologic Medical Hx - youth liaison officer Hx of Blood Transfusion No 12/26/24 21:29 [...] confused, unrespo /Reproduction History /Reproductive History - black leather buffer: /Reproductive Hx- black leather buffer Hx Now No 12/27/24 20:12 Gestational Age [...] 12/27/24 10:00 12/27/24 10:21 Fluticasone 0.05% 1 [place] Nasal.Sry NASAL 1 spray DAILY HINA Administration Guaifenesin 10 ml 12/26/24 21:09 12/27/24 18:06 Guaifenesin 10 Ml Udc (200mg/10ml) PO 10 ml Q4H PRN PRN Administration COUGH/CONGESTION Hydralazine HCl 10 mg 12/26/24 21:09 Hydralazine 20 Mg/Ml Vial IV Q4H PRN PRN SBP > 160 Protocol Sodium Chloride 250 mls @ 15 mls/hr 12/26/24 21:24 IV .[id number] PRN Saline Flush Sodium Chloride 250 mls @ 15 mls/hr 12/26/24 21:24 IV .[id number] PRN Additional IVPB Infusion Pantoprazole Sodium 40 [...] PO 180 mg BID HINA Administration Protocol [facility] Medical History Afib Aortic valve stenosis RLS [...] MD Cosigner Signature: Date CC: ~ Signed [facility] Work Phone: 1(383) 479-168909-04-2025 Consult note Author Kyle Mendenhall [facility] Note Date/Time December 28, 2024 11:19am [facility] Medical Records Department [address] [place] [address] Consultation - GI 12/28/24 1116 MR#: [id number] Acct: [id number] Name: DENIA GONZALEZ Rep #:[id number] : 1955 69 From: Kyle Mendenhall DO PCP: Dr. Yoseph Fall MD Status:AD M IN Location: [place] [id number]- 1 HPI Consult Data Date of Consult: 12/28/24 [...] to see her due to decreasing hemoglobin. [facility] Medical History Afib Aortic valve stenosis RLS [...] 90.6 H, Lymph % (Auto) 5.5 L, Aiken % (Auto) 3.0, Eos % (Auto) 0.0, [...] ASAof 3. Charges/Coding Visit Charges Inpatient E&M: 83014 Init Hosp L3 12/28/24 1119 <Electronically signed by Kyle Friend DO> Cosigner Signature (if applicable): CC: Dr. Yoseph Fall MD~ Signed [facility] Work Phone: 1(920) 972-359509-04-2025 Consult note [facility] Medical Records Department [address] [place] [address] Anesthesia Postop Eval I 12/28/24 1202 MR#: [id number] Acct: [id number] Name: DENIA GONZALEZ Rep #:[id number] : 1955 69 From: Saul Liao PCP: Dr. Yoseph Fall MD Status:AD M IN Y Race: C Location: [place] [address] 2-1 Anesthesia: Postop Eval I Current Vital Signs [...] Anesthesia document: Postop Eval 1 completed: Yes 12/28/24 1205 > Date _ Saul Higgins Signature: Date CC: ~ Signed [facility]09-04-2025 Procedure note [facility] Medical Records Department [address] [place] [address] EGD Report MR#: [id number] Acct: [id number] Name: DENIA GONZALEZ Rep #:[id number] : 1955 69 From: Kyle Mendenhall DO [...] The examined esophagus was normal. Hematin (altered blood/zbrgkc-dgpiis-saun material) was found in the gastric body. [...] Impression: - Normal esophagus. - Hematin (altered blood/uxwtzb-cwnjbm-ergi material) in the gastric body. - Oozing gastric ulcers with pigmented material. Treated with a heater probe. 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 Treated with a heater probe. - No specimens collected. Recommendation: - Return patient to [facility] for ongoing care. - Resume previous diet. - Continue present medications. Procedure Code(s): --- Professional --- 07423, Small intestinal endoscopy, enteroscopy beyond second portion of duodenum, not including ileum; with ablation of tumor(s), polyp(s), or other lesion(s) not amenable to removal by hot biopsy forceps, bipolar cautery or snare technique 31037, 59,51, Small intestinal endoscopy, enteroscopy beyond second portion of duodenum, not including ileum; with control of bleeding (eg, injection, bipolar cautery, unipolar cautery, laser, heater probe, stapler, plasma health information technician) CPT copyright 2021 [employer]. All rights reserved. The codes documented in this report are preliminary and upon net programmer review may be revised to meet current compliance requirements. Kyle Mendenhall DO 12/28/2024 11:52:52 AM This report has been signed electronically. Number of Addenda: 0 Note Initiated On: 12/28/2024 11:39 AM 12/28/24 1153 Date _ Kyle Mendenhall DO Cosigner Signature: Date (if indicated) CC: Dr. Yoseph Fall MD; Kyle Mendenhall DO ~ Date Dictated: 12/28/24 1139 Date Transcribed: Regulatory Intern: RF Signed [facility]09-04-2025 Procedure note [facility] Medical Records Department [address] [place] [address] Provation Physician Letter MR#: [id number] Acct: [id number] Name: DENIA GONZALEZ Rep #:[id number] : 1955 69 From: Kyle Mendenhall DO PCP: Dr. Yoseph Fall MD Status:AD M IN 12/28/2024 Yoseph Fall [address] [place] [address] Re : Upper GI endoscopy procedure for Denia Gonzalez Dear Dr. Fall This procedure was performed on December. My impressions and recommendations are as follows: Impressions : - Normal esophagus. - Hematin (altered blood/rjnbpq-yrczzj-esym material) in the gastric body. - Oozing [...] signed electronically. 12/28/24 1153 Date _ Kyle Mendenhall DO Cosigner Signature: Date (if indicated) CC: STEFANIE Mendez; STEFANIE Jha; STEFANIE Joseph; Dr. Dionne Porter MD; Dr. Yoseph Fall MD; Dr. Lynne Schafer MD; Dr. Alessandro Palma MD; SADIQ Paez; Kyle Mendenhall DO ~ Date Dictated: 12/28/24 1139 Date Transcribed: Regulatory Intern: RF Signed [facility]09-04-2025 Progress note Author Stacy abdi [facility] Note Date/Time December 28, 2024 9:41am [facility] Medical Records Department [address] [place] [address] Progress Note - Palliative 12/28/24914 MR#: [id number] Acct: [id number] Name: DENIA GONZALEZ Rep #:[id number] : 1955 69 From: Stacy Nazario SOUND EFFECTS TECHNICIAN-C PCP: Dr. Yoseph Fall MD Status:AD M IN Location: [facility] [id number]- 1 Subjective Subjective 12/28/24: Prior to meeting [...] was then gently awakened by myself and POTATO PEELING MACHINE OPERATOR to do her vitals. Patient states that [...] of care conversations as clinical picture evolves. HPI:"The patient is a 69 y/o F w/ PMHx: Valvular Heart Disease, GERD, RLS, Anxiety and Depression, Former tobacco use, Former EtOH Abuse, Hx Non-small celllung cancer status post right lung lobectomy remotely 2003, COPD/Asthma with Chronic Hypoxic Respiratory Failure (2L NC) with allergic rhinitis, HTN who presents to the [facility] ED on 12/26/2024 with history of 3 to 4days of progressively worsening fatigue, malaise, dyspnea with chest tightness and wheezing coupled unfortunately with significant panic attacks whenever she has been attempting to leave the house with a productive cough specifically of yellow sputum prompting ED evaluation be cautious. She does report that she is supposed to have a heart cath at [facility] in the next several weeks because of [...] BUN/creatinine 16/0.64, GFR 96, glucose 112, initial [id number] with repeat delta 25, chest x-ray with [...] x 1 and Solu-Medrol 125 mg IVx 1." Objective Data Objective Data Vital Signs: Vital [...] 90.6 H, Lymph % (Auto) 5.5 L, Aiken % (Auto) 3.0, Eos % (Auto) 0.0, [...] Attitude: calm Charges/Coding Palliative Care Palliative Care: 52297 Follow up 35-49 min Consulation Summary Current [...] a Healthcare Power No 12/26/24 21:29 of Patent Chemist? Do You Want Additional Declined 12/26/24 21:29 [...] a result of this Palliative Care Encounter: [[id number] ] minutes were spent in total for [...] Cosigner Signature (if applicable): CC: ~ Signed [facility] Work Phone: 1(875) 215-559109-04-2025 Consult note [facility] Medical Records Department [address] [place] [address] Pre-Anesthesia Evaluation 12/28/24 1121 MR#: [id number] Acct: [id number] Name: DENIA GONZALEZ Rep #:[id number] : 1955 69 From: Lawson Henry MD PCP: Dr. Yoseph Fall MD Status:AD M IN Y Race: C Location: [place] [address] 2-1 ASA Classification* ASA Classification ASA Classification: [...] Procedure(s): Esophagogastroduodenoscopy Anesthesia History Anesthesia History - black leather buffer: Anesthesia History - black leather buffer Hx Hospitalization No 05/05/20 07:54 Any Problems [...] sips of water?: No PONV PONV - black leather buffer: PONV - black leather buffer Female HX of Motion Sickness HX of N/V After Surgery Non-Smoker Duration of Surgery greater than 60 minutes Number of Risk Factors PONV Score Height & Weight Height & Weight: Anesthesia: Height & Weight Height 5 ft 4 in 12/28/24 09:46 Weight: 74.8 kg 12/28/24 09:46 Body Mass Index (BMI) 28.3 12/28/24 09:46 Respiratory Assessment Respiratory Assessment - black leather buffer: Respiratory Tract Infection Hx - black leather buffer Hx Respiratory Tract Infection No 12/27/24 20:12 STOP Sleep Apnea STOP Sleep Apnea - black leather buffer: STOP Sleep Apnea - black leather buffer Hx Hypertension Yes 12/26/24 21:29 Hx Sleep [...] Tobacco Use History Tobacco Use History - black leather buffer: Tobacco Use History - black leather buffer Tobacco Use Cigarettes 07/20/23 02:52 Smoking Status Former smoker 12/27/24 00:38 Hx Tobacco Use Yes 12/26/24 21:29 Years Smoking Packs Smoked per Day Smoking Cessation Date was Yes - quit smoking within 15 12/26/24 21:29 within the last 15 years years Hx Smoking Cessation Date 09/22/24 12/26/24 21:29 Hx Smoking Cessation No 12/26/24 21:29 Counseling Hematologic Medial History Hematologic Hx - black leather buffer: Hematologic Medical Hx - youth liaison officer Hx of Blood Transfusion No 12/26/24 21:29 [...] confused, unrespo /Reproduction History /Reproductive History - black leather buffer: /Reproductive Hx- black leather buffer Hx Now No 12/27/24 20:12 Gestational Age [...] 12/27/24 10:00 12/27/24 10:21 Fluticasone 0.05% 1 [place] Nasal.Sry NASAL 1 spray DAILY HINA Administration Guaifenesin 10 ml 12/26/24 21:09 12/27/24 18:06 Guaifenesin 10 Ml Udc (200mg/10ml) PO 10 ml Q4H PRN PRN Administration COUGH/CONGESTION Hydralazine HCl 10 mg 12/26/24 21:09 Hydralazine 20 Mg/Ml Vial IV Q4H PRN PRN SBP > 160 Protocol Sodium Chloride 250 mls @ 15 mls/hr 12/26/24 21:24 IV .[id number] PRN Saline Flush Sodium Chloride 250 mls @ 15 mls/hr 12/26/24 21:24 IV .[id number] PRN Additional IVPB Infusion Pantoprazole Sodium 40 [...] PO 180 mg BID HINA Administration Protocol [facility] Medical History Afib Aortic valve stenosis RLS [...] MD Cosigner Signature: Date CC: ~ Signed [facility]09-04-2025 Consult note [facility] Medical Records Department [address] [place] [address] Consultation - GI 12/28/24 1116 MR#: [id number] Acct: [id number] Name: DENIA GONZALEZ Rep #:[id number] : 1955 69 From: Kyle Mendenhall DO PCP: Dr. Yoseph Fall MD Status:AD M IN [facility] H[facility] Consult Data Date of Consult: 12/28/24 [...] to see her due to decreasing hemoglobin. [facility] Medical History Afib Aortic valve stenosis RLS [...] 90.6 H, Lymph % (Auto) 5.5 L, Aiken % (Auto) 3.0, Eos % (Auto) 0.0, [...] ASAof 3. Charges/Coding Visit Charges Inpatient E&M: 73371 Init Hosp L3 12/28/24 1119 Cosigner Signature (if applicable): CC: Dr. Yoseph Fall MD~ Signed [facility]09-04-2025 Progress note [facility] Medical Records Department [address] [place] [address] Progress Note - Palliative 12/28/24 0915 MR#: [id number] Acct: [id number] Name: DENIA GONZALEZ Rep #:[id number] : 1955 69 From: Stacy Nazario SOUND EFFECTS TECHNICIAN-C PCP: Dr. Yoseph Fall MD Status:AD M IN Location: [place] [address] Subjective Subjective 12/28/24: Prior to meeting with [...] was then gently awakened by myself and POTATO PEELING MACHINE OPERATOR to do her vitals. Patient states that [...] of care conversations as clinical picture evolves. HPI:"The patient is a 69 y/o F w/ PMHx: Valvular Heart Disease, GERD, RLS, Anxiety and Depression, Former tobacco use, Former EtOH Abuse, Hx Non-small celllung cancer status post right lung lobectomyremotely 2003, COPD/Asthma with Chronic Hypoxic Respiratory Failure (2L NC) with allergic rhinitis,HTN who presents to the [facility] ED on 12/26/2024 with history of 3 to 4days of progressively worsening fatigue, malaise, dyspnea with chest tightness and wheezing coupled unfortunately with significant panic attacks whenever she has been attempting to leave the house with a productive cough specifically of yellow sputum prompting ED evaluation be cautious. She does report that she is supposed to have a heart cath at [facility] in the next several weeks because of [...] BUN/creatinine 16/0.64, GFR 96, glucose 112, initial [id number] with repeat delta 25, chest x-ray with [...] 1 and Solu- Medrol 125 mg IVx 1." Objective Data Objective Data Vital Signs: Vital [...] 90.6 H, Lymph % (Auto) 5.5 L, Aiken % (Auto) 3.0, Eos % (Auto) 0.0, [...] Attitude: calm Charges/Coding Palliative Care Palliative Care: 08399 Follow up 35-49 min Consulation Summary Current [...] a Healthcare Power No 12/26/24 21:29 of Patent Chemist? Do You Want Additional Declined 12/26/24 21:29 [...] a result of this Palliative Care Encounter: [[id number] ] minutes were spent in total for [...] Cosigner Signature (if applicable): CC: ~ Signed [facility]09-03-2025 Progress note Author Lynne Schafer [facility] Note Date/Time December 27, 2024 6:32pm [facility] Medical Records Department [address] [place] [address] Progress Note 12/27/24 1546 MR#: [id number] Acct: [id number] Name: DENIA GONZALEZ Rep #:[id number] : 1955 69 From: Lynne Schafer MD PCP: Dr. Yoseph Fall MD Status:AD M IN Location: [place] [address] Subjective Subjective Patient seen and examined. She [...] 83.2 H, Lymph % (Auto) 11.3 L, Aiken % (Auto) 4.5, Eos % (Auto) 0.1, [...] 88.7 H, Lymph % (Auto) 8.1 L, Aiken % (Auto) 1.7, Eos % (Auto) 0.0, [...] * #Hypokalemia: Potassium is 3. Replace and trend.\\ # History of non-small cell lung cancer: S/p right lung lobectomy. In remission. #Severe aortic valve stenosis: * 2D echo from 11/03/2024 showed severe concentric left ventricular hypertrophy with EF of 70% and stage I diastolic dysfunction. * To follow-up at [facility] as scheduled for evaluation for TAVR. * On Multaq, Coreg and verapamil. * #Hypertension: On Coreg and verapamil. IV hydralazine as needed #History of paroxysmal A-fib: On Coreg and Multaq. Eliquis held in light of anemia. #GERD: On PPI DVT prophylaxis: SCDs Charges/Coding Visit Charges Inpatient E&M: 50308 Subs Hosp L2 12/27/24 1832 <Electronically signed by Lynne Schafer MD> Lynne Schafer MD Cosigner Signature (if applicable): CC: ~ Signed [facility] Work Phone: 1(919) 958-883509-03-2025 Progress note [facility] Medical Records Department [address] [place] [address] Progress Note 12/27/24 1546 MR#: [id number] Acct: [id number] Name: DENIA GONZALEZ Rep #:[id number] : 1955 69 From: Lynne Schafer MD PCP: Dr. Yoseph Fall MD Status:AD M IN Location: [place] [address]- Subjective Subjective Patient seen and examined. She [...] 83.2 H, Lymph % (Auto) 11.3 L, Aiken % (Auto) 4.5, Eos % (Auto) 0.1, [...] 88.7 H, Lymph % (Auto) 8.1 L, Aiken % (Auto) 1.7, Eos % (Auto) 0.0, [...] * #Hypokalemia: Potassium is 3. Replace and trend.\\ # History of non-small cell lung cancer: S/p right lung lobectomy. In remission. #Severe aortic valve stenosis: * 2D echo from 11/03/2024 showed severe concentric left ventricular hypertrophy with EF of 70% and stage I diastolic dysfunction. * To follow-up at [facility] as scheduled for evaluation for TAVR. * On Multaq, Coreg and verapamil. * #Hypertension: On Coreg and verapamil. IV hydralazine as needed #History of paroxysmal A-fib: On Coreg and Multaq. Eliquis held in light of anemia. #GERD: On PPI DVT prophylaxis: SCDs Charges/Coding Visit Charges Inpatient E&M: 48807 Subs Hosp L2 12/27/24 1832 Lynne Schafer MD Cosigner Signature (if applicable): CC: ~ Signed [facility]09-03-2025 Consult note Author Stacy abdi [facility] Note Date/Time December 27, 2024 3:21pm [facility] Medical Records Department [address] [place] [address] Consultation - Palliative Care 12/27/24 1408 MR#: [id number] Acct: [id number] Name: DENIA GONZALEZ Rep #:[id number] : 1955 69 From: Stacy WATTS PCP: Dr. Yoseph Fall MD Status:AD M IN Location: [address] Medical History Afib Aortic valve stenosis [...] as documented Cardiovascular Cardiovascular: Reports other Details: "Chest tightness" Respiratory/Chest Respiratory/Chest: Reports change in phlegm color, [...] and anxious Charges/Coding Palliative Care Palliative Care: 85455 New Pt Consult 80+ min HPI Current [...] of care conversations as clinical picture evolves. HPI:"The patient is a 69 y/o F w/ PMHx: Valvular Heart Disease, GERD, RLS, Anxiety and Depression, Former tobacco use, Former EtOH Abuse, Hx Non-small celllung cancer status post right lung lobectomy remotely 2003, COPD/Asthma with Chronic Hypoxic Respiratory Failure (2L NC) with allergic rhinitis, HTN who presents to the [facility] ED on 12/26/2024 with history of 3 to 4days of progressively worsening fatigue, malaise, dyspnea with chest tightness and wheezing coupled unfortunately with significant panic attacks whenever she has been attempting to leave the house with a productive cough specifically of yellow sputum prompting ED evaluation be cautious. She does report that she is supposed to have a heart cath at [facility] in the next several weeks because of [...] BUN/creatinine 16/0.64, GFR 96, glucose 112, initial [id number] with repeat delta 25, chest x-ray with [...] x 1 and Solu-Medrol 125 mg IVx 1." Palliative Assessment Advanced Directive - Current Admission Advance Directive: Advance Directive ON ADMISSION - REFERENCE 3 Do you have a Healthcare No 12/26/24 21:29 Living Will? Do you have a Healthcare Power No 12/26/24 21:29 of Patent Chemist? Do You Want Additional Declined 12/26/24 21:29 Information on Advanced Directives or Healthcare Proxy/DPOA comments: Patient states that her POA would be her significant other Mike. She is in the process of having that paperwork notarized. Psychosocial/Spiritual Information Living situation/Marital status: Patient states that she lives independently with her significant other providingassistance as well as her neighbor. Geographic location: [place] Supports: Family and friends Mandaen/Oneida or spiritual preference: No stated anabaptism but states that she is spiritual Spiritual [...] 83.2 H, Lymph % (Auto) 11.3 L, Aiken % (Auto) 4.5, Eos % (Auto) 0.1, [...] 88.7 H, Lymph % (Auto) 8.1 L, Aiken % (Auto) 1.7, Eos % (Auto) 0.0, [...] acute abnormality. No significant change Reading Location: [id number] Rhythm Strip Rhythm Strip: Sinus Rhythm Rate: [...] result of this Palliative Care Encounter: [ 2084-8027,[id number]=81] minutes were spent in total for this [...] applicable): CC: Dr. Yoseph Fall MD~ Signed [facility] Work Phone: 1(753) 422-473209-03-2025 Consult note [facility] Medical Records Department [address] [place] [address] Consultation - Palliative Care 12/27/24 1408 MR#: [id number] Acct: [id number] Name: DENIA GONZALEZ Rep #:[id number] : 1955 69 From: Stacy WATTS PCP: Dr. Yoseph Fall MD Status:AD M IN Location: [address] Medical History Afib Aortic valve stenosis [...] as documented Cardiovascular Cardiovascular: Reports other Details: "Chest tightness" Respiratory/Chest Respiratory/Chest: Reports change in phlegm color, [...] and anxious Charges/Coding Palliative Care Palliative Care: 91386 New Pt Consult 80+ min HPI Current [...] of care conversations as clinical picture evolves. HPI:"The patient is a 69 y/o F w/ PMHx: Valvular Heart Disease, GERD, RLS, Anxiety and Depression, Former tobacco use, Former EtOH Abuse, Hx Non-small celllung cancer status post right lung lobectomyremotely 2003, COPD/Asthma with Chronic Hypoxic Respiratory Failure (2L NC) with allergic rhinitis,HTN who presents to the [facility] ED on 12/26/2024 with history of 3 to 4days of progressively worsening fatigue, malaise, dyspnea with chest tightness and wheezing coupled unfortunately with significant panic attacks whenever she has been attempting to leave the house with a productive cough specifically of yellow sputum prompting ED evaluation be cautious. She does report that she is supposed to have a heart cath at [facility] in the next several weeks because of [...] BUN/creatinine 16/0.64, GFR 96, glucose 112, initial [id number] with repeat delta 25, chest x-ray with [...] 1 and Solu- Medrol 125 mg IVx 1." Palliative Assessment Advanced Directive - Current Admission Advance Directive: Advance Directive ON ADMISSION - REFERENCE 3 Do you have a Healthcare No 12/26/24 21:29 Living Will? Do you have a Healthcare Power No 12/26/24 21:29 of Patent Chemist? Do You Want Additional Declined 12/26/24 21:29 Information on Advanced Directives or Healthcare Proxy/DPOA comments: Patient states that her POA would be her significant other Mike. She is in the process of having that paperwork notarized. Psychosocial/Spiritual Information Living situation/Marital status: Patient states that she lives independently with her significant other providingassistance as well as her neighbor. Geographic location: [place] Supports: Family and friends Mandaen/Oneida or spiritual preference: No stated anabaptism but states that she is spiritual Spiritual [...] 83.2 H, Lymph % (Auto) 11.3 L, Aiken % (Auto) 4.5, Eos % (Auto) 0.1, [...] 88.7 H, Lymph % (Auto) 8.1 L, Aiken % (Auto) 1.7, Eos % (Auto) 0.0, [...] acute abnormality. No significant change Reading Location: -[id number] Rhythm Strip Rhythm Strip: Sinus Rhythm Rate: [...] signed and notarized whenshe gets out of thehospital Impressions Impressions: Patient is extremely anxious related to her abilities to utilize oxygen outside of her home. I do feel that the patient may be more able to have better qualityof life if she is able to leave her home. Recommentation Palliative recommendations: I do recommend that the patient receives outpatient palliative. Encouter Achieved as a result of this Palliative Care Encounter: [ 7472-1742,[id number]=81] minutes were spent in total for this [...] applicable): CC: Dr. Yoseph Fall MD~ Signed [facility]09-03-2025 Telephone encounter Note* Telephone Encounter - Sukhi Marrero RN - 12/27/2024 2:47 PM EDT Palma Anguiano with [employer] [facility] calls to let provider know that patient was admitted to [facility] last evening for COPD exacerbation. Admission notes available within [facility]. Sukhi Marrero RN [facility]09-02-2025 History and physical note Author Dionne Porter [facility] Note Date/Time December 26, 2024 8:21pm [facility] Medical Records Department [address] [place] [address] H&P Exam - Hospitalist 12/26/241955 MR#: [id number] Acct: [id number] Name: DENIA GONZALEZ Rep #:[id number] : 1955 69 From: Dionne Porter MD PCP: Dr. Yoseph Fall MD Status:AD M IN Location: [facility] [id number]- 1 HPI - General General Date of [...] allergic rhinitis, HTN who presents to the [facility] ED on 12/26/2024 with history of 3 to 4 days of progressively worsening fatigue, malaise, dyspnea with chest tightness and wheezing coupled unfortunately with significant panic attacks whenever she has been attempting to leave the house with a productive cough specifically of yellow sputum prompting ED evaluation be cautious. She does report that she is supposed to have a heart cath at [facility] in the next several weeks because of [...] BUN/creatinine 16/0.64, GFR 96, glucose 112, initial with repeat delta 25, chest x-ray with [...] 1 and Solu-Medrol 125 mg IVx 1. [facility] Medical History Afib Aortic valve stenosis RLS [...] 83.2 H, Lymph % (Auto) 11.3 L, Aiken % (Auto) 4.5, Eos % (Auto) 0.1, [...] acute abnormality. No significant change Reading Location: [id number] Assessment & Plan Assessment/Plan (1) COPD with acute exacerbation: PLAN: Plan The patient is a 69 y/o F w/ PMHx: Valvular Heart Disease, GERD, RLS, Anxiety and Depression, Former tobacco use, Former EtOH Abuse, Hx Non-small cell lung cancer status post right lung lobectomy remotely 2003, COPD/Asthma with Chronic Hypoxic Respiratory Failure (2L NC) with allergic rhinitis, HTN who presents to the [facility] ED on 12/26/2024 with history of [...] with plan as noted for evaluation at [facility] with upcoming cardiac catheterization for consideration of [...] 16 minutes. Charges/Coding Visit Charges Inpatient E&M: 43596 Init Hosp L3 Procedures Hospitalists Procedures: 02543 Advncd Care Plan 30 Min 12/26/242020 <Electronically signed by Dionne Porter MD> Cosigner Signature (if applicable): CC: Dr. Dionne Porter MD; Dr. Yoseph Fall MD~ Signed [facility] Work Phone: 1(791) 264-225409-02-2025 Discharge summary Author Marcel Zarate [facility] Note Date/Time December 26, 2024 8:00pm [facility] Medical Records Department [address] [place] [address] Emergency Department Summary 12/26/24 MR#: [id number] Acct: [id number] Name: DENIA GONZALEZ Rep #:[id number] : 1955 69 From: Marcel Zarate MD [...] is supposed to have a [facility] within the next several weeks because of a leaky valve, her leg swelling is stable. She has been anticoagulated on apixaban because of A-fib. [facility] Medical History Afib Aortic valve stenosis [...] 83.2 H Lymph % (Auto) 11.3 L Aiken % (Auto) 4.5 Eos % (Auto) 0.1 [...] acute abnormality. No significant change Reading Location: [facility]CYH Rhythm Strip Rhythm Strip: Sinus Rhythm Rate: [...] your Primary Care Provider. Call [facility] ([phone]) or report to the closest Emergency Room. Call 911 if necessary. 12/26/241999 <Electronically signed by Marcel Zarate MD> Cosigner Signature (if applicable): CC: Dr. Yoseph Fall MD ~ Signed [facility] Work Phone: 1(207) 898-372409-02-2025 History and physical note [facility] Medical Records Department [address] [place] [address] H&P Exam - Hospitalist 12/26/241955 MR#: [id number] Acct: [id number] Name: DENIA GONZALEZ Rep #:[id number] : 1955 69 From: Dionne Porter MD PCP: Dr. Yoseph Fall MD Status:AD M IN Location: [place] [address] HPI - General General Date of Admission: [...] with allergic rhinitis, HTNwho presents to the [facility] ED on 12/26/2024 with history of 3 to 4 days of progressively worsening fatigue, malaise, dyspnea with chest tightness and wheezing coupled unfortunately with significant panic attacks whenever she has been attempting to leave the house with a productivecough specifically of yellow sputum prompting ED evaluation be cautious. She does report that she is supposed to have a heart cath at [facility] in the next several weeks because of [...] BUN/creatinine 16/0.64, GFR 96, glucose 112, initial [id number] with repeat delta 25, chest x-ray with [...] 1 and Solu-Medrol 125 mg IVx 1. [facility] Medical History Afib Aortic valve stenosis RLS [...] 83.2 H, Lymph % (Auto) 11.3 L, Aiken % (Auto) 4.5, Eos % (Auto) 0.1, [...] acute abnormality. No significant change Reading Location: [id number] Assessment & Plan Assessment/Plan (1) COPD with acute exacerbation: PLAN: Plan The patient is a 69 y/o F w/ PMHx: Valvular Heart Disease, GERD, RLS, Anxiety and Depression, Former tobacco use, Former EtOH Abuse, Hx Non-small cell lung cancer status post right lung lobectomy remotely 2003, COPD/Asthma with Chronic Hypoxic Respiratory Failure (2L NC) with allergic rhinitis, HTNwho presents to the [facility] ED on 12/26/2024 with history of [...] with plan as noted for evaluation at [facility] with upcoming cardiac catheterization for consideration of [...] 16 minutes. Charges/Coding Visit Charges Inpatient E&M: 97785 Init Hosp L3 Procedures Hospitalists Procedures: 52592 Advncd Care Plan 30 Min 12/26/242020 Cosigner Signature (if applicable): CC: Dr. Dionne Porter MD; Dr. Yoseph Fall MD~ Signed [facility]09-02-2025 Discharge summary [facility] Medical Records Department [address] [place] [address] Emergency Department Summary 12/26/24 MR#: [id number] Acct: [id number] Name: DENIA GONZALEZ Rep #:[id number] : 1955 69 From: Marcel Zarate MD [...] is supposed to have a heartcath at [facility] within the next several weeks because of a leaky valve, her leg swelling is stable. She has been anticoagulated onapixaban because of A-fib. [facility] Medical History Afib Aortic valve stenosis [...] 83.2 H Lymph % (Auto) 11.3 L Aiken % (Auto) 4.5 Eos % (Auto) 0.1 [...] acute abnormality. No significant change Reading Location: -[id number] Rhythm Strip Rhythm Strip: Sinus Rhythm Rate: [...] your Primary Care Provider. Call [facility] ([phone]) or report tothe closest Emergency Room. Call 911 if necessary. 12/26/241999 Cosigner Signature (if applicable): CC: Dr. Yoseph Fall MD ~ Signed [facility]09-02-2025 Radiology Diagnostic study note [facility] Imaging Services [address] [place] [address] Chest 1 View (Portable) MR#: [id number] Acct: [id number] Name: DENIA GONZALEZ Rep #: [id number] : 1955 F 69 From: Yaa Becerra MD PCP: Dr. Yoseph Fall MD Status: GA E ER Study:Chest 1 View (Portable) Date of Exam: 12/26/24 Exam# [id number] Ordering Dr: Hema Cardona P. PROCEDURE: CHEST [...] acute abnormality. No significant change Reading Location: [facility]58PMP CC: Dr. Yoseph Fall MD; ED PHYSICIAN PROVIDER ~ Regulatory Intern: Signed [facility]09-02-2025 Discharge summary Author Marcel Zarate [facility] Note Date/Time December 26, 2024 8:00pm [facility] Medical Records Department [address] [place] [address] Emergency Department Summary 12/26/24 MR#: [id number] Acct: [id number] Name: DENIA GONZALEZ Rep #:[id number] : 1955 69 From: Marcel Zarate MD [...] is supposed to have a [facility] at [facility] within the next several weeks because of a leaky valve, her leg swelling is stable. She has been anticoagulated on apixaban because of A-fib. [facility] Medical History Afib Aortic valve stenosis [...] 83.2 H Lymph % (Auto) 11.3 L Aiken % (Auto) 4.5 Eos % (Auto) 0.1 [...] acute abnormality. No significant change Reading [id number] Rhythm Strip Rhythm Strip: Sinus Rhythm Rate: [...] problems, contact your Primary Care Provider. Call [facility]-datum [facility] ([phone]) or report to the closest Emergency Room. Call 911 if necessary. 12/26/241999 <Electronically signed by Marcel Zarate MD> Cosigner Signature (if applicable): CC: Dr. Yoseph Fall MD ~ Signed [facility] Work Phone: 1(346) 561-599509-02-2025 Telephone encounter Note* Telephone Encounter - Ban Villafana LPN - 12/26/2024 9:56 AM EDT Images from the original note were not included. Electronic PA rec'd and completed. Prior authorization approved Payer: [email or web address] [phone] Note from payer: CaseId:[id number];Status:Approved;Review Type:Prior Auth;Coverage Start Date:11/22/2024;Coverage End Date:12/22/2025; Approval [...] to its destination. To be filled at: [facility] [address] [place] [address] [address] [facility] - [phone] [facility]09-02-2025 Miscellaneous Notes* Telephone Encounter - Ban Villafana LPN - 12/26/2024 9:56 AM EDT Images from the original note were not included. Electronic PA rec'd and completed. Prior authorization approved Payer: [email or web address]IVERY [phone] Note from payer: CaseId:[id number];Status:Approved;Review Type:Prior Auth;Coverage Start Date:11/22/2024;Coverage End Date:12/22/2025; Approval [...] to its destination. To be filled at: [facility] [address] [place] [address] [address] [facility] - [phone] documented in this encounterOhio Valley Hospital08-29-2025 Telephone encounter Note * Telephone Encounter - Judy Bliss RN - 12/22/2024 9:40 AM EDT Daughter in [facility] called and notified that prescription was sent to pharmacy. Voices understanding. Judy Bliss RN [facility]08-29-2025 Miscellaneous Notes* Telephone Encounter - Judy Bliss RN - 12/22/2024 9:40 AM EDT Daughter in Law [facility] called and notified that prescription was sent [...] advise, Judy Bliss RN documented in this encounterOhio Valley Hospital08-29-2025 Telephone encounter Note * Telephone Encounter - Yoseph Fall MD - 12/22/2024 9:22 AM EDT OK for Atarax as ordered Yoseph Fall MD [facility]08-29-2025 Telephone encounter Note* Telephone Encounter - [...] Please review and advise, Judy Bliss RN [facility]08-26-2025 Telephone encounter Note* Telephone Encounter - Naima Haines MA - 12/19/2024 3:21 PM EDT [place] notified. Naima Haines MA [facility]08-26-2025 Miscellaneous Notes* Telephone Encounter - Naima [...] 19, 2024 12:30 PM documented in this encounterOhio Valley Hospital08-26-2025 Telephone encounter Note * Telephone Encounter - Yoseph Fall MD - 12/19/2024 2:59 PM EDT OK to refill as ordered OK to increase Buspar to 20 mg bid as ordered to help with increased anxiety Yoseph Fall MD [facility]08-26-2025 Telephone encounter Note* Telephone Encounter - [...] Bliss RN December 19, 2024 12:30 PM [facility]08-22-2025 NotePROCEDURE: L/RHC PROCEDURE DATE: 01/05/25 PROCEDURE TIME: 10 am ARRIVE AT 8:30 am Report to the Central Lounge (first floor) at the hospital entrance at [address] Nothing to eat or drink after [...] of procedure. Please make arrangements for a intermodal owner operator truck driver after the procedure. You will [...] call the Prep and Recovery area at [phone]. The schedule is not finalized until the afternoon, so please avoid calling before 4:30 pm.[facility]08-22-2025 NoteDx: Procedure: L/RHC Date/Time: 01/05/25 at 10:00a Surgeon: TATYANA Location: [facility] Admission: OP Anesthesia: N/A Patient agreeable to above date/time. On PB calendar and printed card to start auth.[facility]08-22-2025 History of Present illness Narrative* Rubi Corbett MD - 12/15/2024 3:00 PM EDT Images from the original note were not included. [facility]: Cardiothoracic Surgery Multidisciplinary Heart Valve Clinic Date: 12/14/24 Patient:Denia Gonzalez 1955 69 y.o. female [id number] Subjective: HPI: Denia Gonzalez 69 y.o. referred [...] a past medical history of A-fib (CMS/HCC) ([facility]), Anxiety, Aortic stenosis, Asthma, Chronic respiratory failure ([facility]), COPD (chronic obstructive pulmonary disease) ([facility]), Depressed, History of ETOH abuse, HTN (hypertension), [...] DAILY ON AN EMPTY STOMACH 09/22/24 Historical Provider, predniSONE (Deltasone) 10 MG tablet Take 1.5 pills every day or every other day as needed 11/13/24 Historical Provider, rOPINIRole (Requip) 0.25 MG tablet Take 0.25 [...] were no vitals taken for this visit. @[id number]@ Physical Exam Constitutional: Appearance: Normal appearance. HENT: [...] Reviewed in EMR No results found for: "WBC", "HGB", "HCT", "MCV", "PLT" No results found for: "NA", "K", "CL", "CO2", "BUN", "CREATININE", "GLUCOSE", CALCIUM Diagnostics: Reviewed in EMR Assessment/Plan: 69F [...] echocardiography,and other diagnostic images. documented in this [facility]08-22-2025 History of Present illness Narrative* Zaria Shea MD - 12/15/2024 2:30 PM EDT Images from the original note were not included. [facility] [place] [address] [facility] [address] Dept: [phone] Dept Visit type: New : 1955 Reason for Visit: New patient, Heart Valve Clinic Assessment and Plan 1. Preop cardiovascular exam - CBC auto differential - Comprehensive metabolic panel - Case Request Continuity Reader: Left and right heart cath / coronary [...] Weight: 155 lb (70.3 kg) Height: 5' 4" (1.626 m) Physical Exam Constitutional: General: She [...] Reviewed and Summarized No results found for: "EFBP", "PLVEF", "LVEFPHYS", "LVEF2D", "EF" Review of tests/labs done/ordered within my specialty: [...] by mouth daily., Disp: , Rfl: HYDROcodone-acetaminophen (Morrow) 5-325 MG tablet, Take 1 tablet by [...] Father Stomach cancer Father documented in this [facility]08-15-2025 Telephone encounter Note* Telephone Encounter - Ban Villafana LPN - 12/08/2024 10:37 AM EDT Images from the original note were not included. prior authorization approved Payer: [employer] [phone] Note from payer: CaseId:[id number];Status:Approved;Review Type:Prior Auth;Coverage Start Date:11/08/2024;Coverage End Date:12/08/2025; Approval [...] to its destination. To be filled at: [facility] [address] [place] [address] [address] [facility] - [phone] Pharmacy notified. [facility]08-15-2025 Miscellaneous Notes* Telephone Encounter - Ban Villafana LPN - 12/08/2024 10:37 AM EDT Images from the original note were not included. prior authorization approved Payer: [facility] [phone] Note from payer: CaseId:[id number];Status:Approved;Review Type:Prior Auth;Coverage Start Date:11/08/2024;Coverage End Date:12/08/2025; Approval [...] to its destination. To be filled at: [facility] [address] [place] [address] [address] [facility] - [phone] Pharmacy notified. * Telephone Encounter - Ban Villafana LPN - 12/08/2024 10:31 AM EDT Electronic PA rec'd and completed for cyclobenzaprine (FLEXERIL) 10 mg tablet documented in this encounterOhio Valley Hospital08-15-2025 Telephone encounter Note * Telephone Encounter - Ban Villafana LPN - 12/08/2024 10:31 AM EDT Electronic PA rec'd and completed for cyclobenzaprine (FLEXERIL) 10 mg tablet [facility]08-15-2025 Telephone encounter Note* Telephone Encounter - Nelson Robert APRN.CNP - 12/08/2024 9:26 AM EDT The following approved medication requests have been transmitted electronically. Requested Prescriptions Pending Prescriptions Disp Refills cyclobenzaprine (FLEXERIL) 10 mg tablet 60 tablet 5 Sig: Take 1 tablet by mouth two times a day as needed for muscle spasm. Nelson Robert APRN.CNP [facility]08-15-2025 Miscellaneous Notes* Telephone Encounter - Nelson [...] 08, 2024 9:19 AM documented in this encounterOhio Valley Hospital08-15-2025 Telephone encounter Note * Telephone Encounter [...] Louie RN December 08, 2024 9:19 AM [facility]08-05-2025 Telephone encounter Note* Telephone Encounter - Heena Howell - 11/28/2024 4:15 PM EDT Chart made and SOUND EFFECTS TECHNICIAN packet mailed [facility] Miscellaneous Notes* Telephone Encounter - Heena Howell - 11/28/2024 4:15 PM EDT Chart made and SOUND EFFECTS TECHNICIAN packet mailed * Telephone Encounter - Heena Howell - 11/23/2024 1:52 PM EDT Records scanned under Media and paper referral on my desk to make chart * Telephone Encounter - Heena Lynda - 11/22/2024 1:08 PM EDT VC appt made I need to make chart and mail SOUND EFFECTS TECHNICIAN packet. Working on getting records scanned in. documented in this [facility]08-04-2025 Telephone encounter Note* Telephone Encounter - Yoseph Fall MD - 11/27/2024 3:12 PM EDT Noted and agree Yoseph Fall MD [facility]08-04-2025 Miscellaneous Notes* Telephone Encounter - Yoseph Fall MD - 11/27/2024 3:12 PM EDT Noted and agree Yoseph Fall MD * Telephone Encounter - Padmini Abbott, KAREN - 11/27/2024 2:12 PM EDT Rafa with [facility] Nursing calling and states he plans to add 1 more visit to pt's plan of care, to discharge patient. No call back needed if provider agreeable with this. Padmini Abbott, KAREN documented in this encounterOhio Valley Hospital08-04-2025 Telephone encounter Note * Telephone Encounter - Padmini Abbott RN - 11/27/2024 2:12 PM EDT Rafa with [facility] Nursing calling and states he plans to add 1 more visit to pt's plan of care, to discharge patient. No call back needed if provider agreeable with this. Padmini Abbott RN [facility]08-01-2025 Telephone encounter Note* Telephone Encounter - Mikayla Broussard RN - 11/24/2024 3:30 PM EDT Palliative Medicine at Home Care Coordination New Patient Note My chart note sent. Nurse introduced self and role of Coding Auditor in Palliative Medicine. Reviewed contact sheet information and on-call process. Nurse educated patient on medication refill process. Nurse encouraged patient to call with any questions/concerns/symptom related issues. KAMALJIT Shrestha Motor Vehicle License Clerk [facility]08-01-2025 Miscellaneous Notes* Telephone Encounter - Mikayla Broussard RN - 11/24/2024 3:30 PM EDT Palliative Medicine at Home Care Coordination New Patient Note My chart note sent. Nurse introduced self and role of Coding Auditor in Palliative Medicine. Reviewed contact sheet information and on-call process. Nurse educated patient on medication refill process. Nurse encouraged patient to call with any questions/concerns/symptom related issues. KAMALJIT Shrestha Motor Vehicle License Clerk documented in this encounterOhio Valley Hospital08-01-2025 Telephone encounter Note * Telephone Encounter - Shira Shaw LISW - 11/24/2024 11:11 AM EDT November 24, 2024 Opened by mistake, please disregard. ALTA [facility] Social Work [phone] [facility] Work Phone: 1(521) 631-624708-01-2025 Miscellaneous Notes* Telephone Encounter - Shira Shaw LISW - 11/24/2024 11:11 AM EDT November 24, 2024 Opened by mistake, please disregard. ALTA [facility] Social Work [phone] documented in this encounterOhio Valley Hospital08-01-2025 Telephone encounter Note * Telephone Encounter - Yoseph Fall MD - 11/24/2024 10:30 AM EDT OK for doxycycline as ordered Yoseph Fall MD [facility]08-01-2025 Miscellaneous Notes* Telephone Encounter - Yoseph Fall MD - 11/24/2024 10:30 AM EDT OK for doxycycline as ordered Yoseph Fall MD * Telephone Encounter - Naima Haines MA - 11/23/2024 2:50 PM EDT Pt states she still feels like she needs an antibiotic, unable to take Levaquin due to medication interaction. Drug [place]. Naima Haines MA * Telephone Encounter - Yoseph Fall MD - 11/23/2024 2:33 PM EDT Does she feel that she still needs an antibiotic? Yoseph Fall MD * Telephone Encounter - Sukhi Marrero RN - 11/20/2024 3:14 PM EDT Rafa RN with [facility] calls to let provider know that [...] Dr. Fall for when returns or if SOUND EFFECTS TECHNICIAN would review. Sukhi Marrero, RN documented in this encounterOhio Valley Hospital07-31-2025 Telephone encounter Note * Telephone Encounter - Naima Haines MA - 11/23/2024 2:50 PM EDT Pt states she still feels like she needs an antibiotic, unable to take Levaquin due to medication interaction. Drug [facility] [place]. Naima Haines MA [facility]07-31-2025 Telephone encounter Note* Telephone Encounter - Yoseph Fall MD - 11/23/2024 2:33 PM EDT Does she feel that she still needs an antibiotic? Yoseph Fall MD [facility]07-31-2025 Telephone encounter Note* Telephone Encounter - Yoseph Fall MD - 11/23/2024 2:23 PM EDT OK to refill as ordered Yoseph Fall MD [facility]07-31-2025 Miscellaneous Notes* Telephone Encounter - Yoseph [...] pain for up to 30 days. Martínez Loiue RN November 23, 2024 1:00 PM documented in this encounterOhio Valley Hospital07-31-2025 NoteRecords scanned under Media and paper referral on my desk to make [facility] 11-23-2024 Telephone encounter Note* Telephone Encounter - Heena Howell - 11/23/2024 1:52 PM EDT Records scanned under Media and paper referral on my desk to make chart [id number] Telephone encounter Note* Telephone Encounter - Martínez [...] Louie RN November 23, 2024 1:00 PM [facility]07-31-2025 Instructions* Patient Instructions* Gregor Fernandez APRN.[place] - 11/23/2024 9:58 AM EDT Denia, It [...] of breath, or swelling, please contact your shirt bander or go to the emergency room. - COPD and Breathing Support: - Continue using your nebulizer every 6 hours as directed. - Continue taking Spiriva and Singulair as prescribed. - You are doing well with nicotine patches and have stopped smoking. Please continue using the patches as needed. - A perinatal social worker will reach out to explore options for [...] reach out to your primary care provider, shirt bander,or palliative care team with any concerns. Good luck with your upcoming appointments and tests. Thank You, Gregor Fernandez CNP documented in this encounterOhio Valley Hospital07-31-2025 History of Present illness Narrative* Gregor Fernandez APRN.TOE LINING CLOSER - 11/23/2024 7:00 AM EDT PALLIATIVE MEDICINE AT HOME INITIAL CONSULT SERVICE DATE: 11/23/2024 Referring Physician: Yoseph Fall [address] [facility] [address] Primary Physician: Yoseph Fall MD IDENTIFICATION AND INTRODUCTION: Denia Gonzalez is a 69 year old female This visit took place Virtually; I have communicated my name and active licensure. The patient's identity and physical location were verified at the time of this visit. The patient or their legal insurance sales representative has been informed of the risks and benefits of -- and alternatives to -- treatment through a remote evaluation and consents to proceed with the evaluation remotely. The patient is being seen with daughter in law Recording using ambient Inst[employer] software for draft documentation of the visit was discussed with the patient/authorized insurance sales representative; all questions welcomed and answered. Patient/authorized insurance sales representative agreed to proceed REASON FOR [...] Pt states she does not see a agency sales development associate, she is not seeing pain management Subjective [...] screening but has not yet seen a agency sales development associate. She uses 3 liters of oxygen and [...] longer distances. She receives home care from [facility] and the [facility] heart team. She manages herown medications [...] OR (myocardial infarction) (HCC) 10-10 taken to [facility] "heart stopped" Obstructive chronic bronchitis with exacerbation (HCC) COPD [...] as directed. Dx: COPD J44.9 Nebulizer Accessories [facility] Mask and supplies as needed PULSE OXIMETER [facility] Use as directed to check oxygen saturation level ammonium lactate (AMLACTIN) 12 % lotion Apply 1 application to affected area as needed for Dry Skin. losartan (COZAAR) 50 mg tablet Take 0.5 tablets by mouth once daily. (Patient not taking: Reported on 11/23/2024) OXYGEN, HOME THERAPY, 2.5 L/min by Nasal Cannula route continuous. Use as directred Disposable Gloves (DISPOSABLE LATEX-FREE GLOVES) [facility] 1 Box once every month. ICD 10: [...] Paternal Grandfather REVIEW OF SYSTEMS: Modified ESAS (Mchenry Symptom Assessment Scale): Information Provided By: Patient [...] and coordination with other healthcare providers. - rack room worker Shira to reach out to patient regarding portable [...] patches. - Continue current medication regimen. - rack room worker to assist with obtaining a more [...] Dr. Fall to explore referral to a roof painter. 4. Generalized anxiety disorder (F41.1) Patient [...] remission. - No current follow-up with a agency sales development associate; consider referral to Dr. Guzmán for ongoing monitoring. 7. Dependence on supplemental oxygen (Z99.81) Patient is dependent on 3L of supplemental oxygen and experiences anxiety about leaving the house due to fear of running out of oxygen. - rack room worker to assist with obtaining a more portable oxygen solution. - Monitor oxygen levels and adjust flow rate as necessary. 8. detention (current) use of 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 (Z79.52) Patient [...] Medicine Nurse to do telephonic follow-up: No Regional Facilities Manager Services: Telephonic discussion and assessment for community resources: Has portable tanks, is scared to leave her home. Could use a system that is rechargeable such as Inogen. Pt needs to be able to go see specialists such as pulmonology and cardiology Referral to Drop Forger Helper: No, not at this time Recommendations will be communicated back to the consulting service by way of shared electronic medical record. Some elements copied from PCP note dated 10/17/24 , which have been updated where appropriate, and reflect current medical decision making from today, 11/23/24 Gregor Fernandez APRN.CNP November 23, 2024 9:53 AM documented in this encounterOhio Valley Hospital07-31-2025 NoteHNO ID: [id number] Author: GREGOR FERNANDEZ APRN.CNP Service: ? Author Type: Nurse Practitioner Type: Progress Notes Filed: 11/23/2024 10:01 Note Text: PALLIATIVE MEDICINE AT HOME INITIAL CONSULT SERVICE DATE: 11/23/2024 Referring Physician: Yoseph Fall [address] [facility] [address] Primary Physician: Yoseph Fall MD IDENTIFICATION AND INTRODUCTION: Denia Gonzalez is a 69 year old female This visit took place Virtually; I have communicated my name and active licensure. The patient's identity and physical location were verified at the time of this visit. The patient or their legal insurance sales representative has been informed of the risks and benefits of -- and alternatives to -- treatment through a remote evaluation and consents to proceed with the evaluation remotely. The patient is being seen with daughter in law Recording using G[employer] Studio software for draft documentation of the visit was discussed with the patient/authorized insurance sales representative; all questions welcomed and answered. Patient/authorized insurance sales representative agreed to proceed REASON FOR [...] Pt states she does not see a agency sales development associate, she is not seeing pain management Subjective [...] screening but has not yet seen a agency sales development associate. She uses 3 liters of oxygen and [...] longer distances. She receives home care from [facility] and the [facility] heart team. She manages her own [...] site (HCC) 04/26/2003 Kera (more content not included)...[facility]07-30-2025 Telephone encounter Note* Telephone Encounter - Heena Howell - 11/22/2024 1:08 PM EDT VC appt made I need to make chart and mail SOUND EFFECTS TECHNICIAN packet. Working on getting records scanned in. [id number] NoteHNO ID: [id number] Author: GREGOR FERNANDEZ APRN.CNP Service: ? Author Type: Nurse Practitioner Type: Progress Notes Filed: 11/21/2024 14:29 Note Text: PALLIATIVE MEDICINE AT HOME INITIAL CONSULT SERVICE DATE: 11/21/2024 Referring Physician: SELF Primary Physician: Yoseph Fall MD NO SHOW; sent to [facility]07-28-2025 History of Present illness Narrative* Greogr Fernandez APRN.TOE LINING CLOSER - 11/20/2024 7:41 PM EDT PALLIATIVE MEDICINE AT HOME INITIAL CONSULT SERVICE DATE: 11/21/2024 Referring Physician: SELF Primary Physician: Yoseph Fall MD NO SHOW; sent to cone classifier tender documented in this encounterOhio Valley Hospital07-28-2025 Telephone encounter Note * Telephone Encounter - Sukhi Marrero RN - 11/20/2024 3:14 PM EDT Rafa RN with [facility] calls to let provider know that [...] Dr. Fall for when returns or if SOUND EFFECTS TECHNICIAN would review. Sukhi Marrero, RN [facility]07-21-2025 Telephone encounter Note* Telephone Encounter - Padmini Abbott RN - 11/13/2024 4:51 PM EDT Mike returned call and given provider's message below. Andres Abbott RN [facility]07-21-2025 Miscellaneous Notes* Telephone Encounter - Padmini [...] advise. Padmini Abbott RN documented in this encounterOhio Valley Hospital07-21-2025 Telephone encounter Note * Telephone Encounter - Naima Haines MA - 11/13/2024 3:46 PM EDT Message left for Mike to call back. Naima Haines MA [facility]07-21-2025 Telephone encounter Note* Telephone Encounter - Yoseph Fall MD - 11/13/2024 3:32 PM EDT New Rx done for 15 mg every day or every other day as needed Yoseph Fall MD [facility]07-21-2025 Telephone encounter Note* Telephone Encounter - Martínez Louie RN - 11/13/2024 2:08 PM EDT Brenda- nurse- [facility]- phoned to check on pcp reply to message below. Brenda reports when pt was discharged from [facility] she took the prednisone dose prescribed by [facility], and therefor ran out early. Advised message below was sent to pcp and we will call pt with his reply. [facility]07-18-2025 Telephone encounter Note* Telephone Encounter - [...] okay now. Please advise. Padmini Abbott RN [facility]07-11-2025 Telephone encounter Note* Telephone Encounter - Yoseph Fall MD - 11/03/2024 5:04 PM EDT Noted Yoseph Fall MD [facility]07-11-2025 Miscellaneous Notes* Telephone Encounter - Yoseph Fall MD - 11/03/2024 5:04 PM EDT Noted Yoseph Fall MD * Telephone Encounter - Martínez Louie RN - 10/25/2024 1:19 PM EDT Rafa [facility] reports patient asked him to call [...] - 10/24/2024 4:25 PM EDT Ubaldo with [facility] calls in regard to order for Palliative Care. In regards to DX: Ubaldo reports they can see pt for severe COPD. Ubaldo reports they cannot treat ptfor back pain unless it is in regards to cancer or something like that. Pt would need to see a painspecialist for that. Please review and advise. Jennifer Hennessy LPN documented in this encounterOhio Valley Hospital07-11-2025 Evaluation note* Diagnosis Onset Date Resolution Status Admit Date Aortic valve stenosis acute [place] 2024 12:58pm Afib chronic November 03 12:58pm Benign essential hypertension chroni c November 03, 2024 12:58pm Anxiety and depression acute Se pt2024 8:00pm Acute anemia inactive December 8:00pm Acute respiratory insufficiency inactive December 26, 025 8:00pm Anxiety inactive December 26, 2024 8:00pm COPD with acute exacerbation inactiv e December 26, 2024 8:00pm Palliative care encounter inactive December 26, 2024 8:00pm Respiratory insufficiency inactive December 26, 2024 8:00pm Acute exacerbation of chroni c obstructive pulmonary disease acute Oc tob2024 10:04am Anticoagulated on apixaban acute January 25, 2025 10:04am Aortic valve stenosis acute Oct mitzy2024 10:04am Multifocal pneumonia acute Octo 2024 10:04am Pneumonia acute January 25, 025 10:04am Afib chronic January 25 025 10:04am Chronic anemia chronic January 10:04am Acute respiratory failure resolved January 25, 2025 10:04am Tachycardia resolved January 25, 2025 10:04am Aortic valve stenosis acute Oct mitzy 2024 9:23am Afib chronic February 08, 2025 9:23am Benign essential hypertension chroni c February 08, 2025 9:23am [place] [employer] Work Phone: [phone] Telephone encounter Note* Telephone Encounter - Nelson Robert APRN.CNP - 11/01/2024 10:31 AM EDT Noted for [facility]. Rx sent. The following approved medication requests have been transmitted electronically. Requested Prescriptions Pending Prescriptions Disp Refills nicotine (NICODERM) 14 mg/24 hr 28 patch 5 Sig: apply one patch transdermally as directed every 24 hours Nelson Robert APRN.CNP [facility]07-09-2025 Miscellaneous Notes* Telephone Encounter - Nelson Robert APRN.CNP - 11/01/2024 10:31 AM EDT Noted for [facility]. Rx sent. The following approved medication [...] the hospital prescribed for her. Send to [facility]. Pended. Next appt 01/[address] Fall. documented [facility] Telephone encounter Note * Telephone Encounter [...] prescribed for her. Send to [facility]. Pended. Next appt 01/[address] Fall. [facility]07-02-2025 Telephone encounter Note* Telephone Encounter - Martínez Louie RN - 10/25/2024 1:19 PM EDT Rafa [facility] reports patient asked him to call [...] Rafa agreeable and will let pt know. [facility]07-01-2025 Telephone encounter Note* Telephone Encounter - Lindsay Rios RN - 10/24/2024 5:25 PM EDT Rafa with [facility] is calling due to pharmacy unable to fill levaquin due to level 1 severe reaction with the multaq patient takes. When this happened when patient was d/c from [facility] the antibitoc was change to cefdinir 300mg. Rafa needs called back with information along with patient and a different medication sent to pharmacy. [facility]07-01-2025 Miscellaneous Notes* Telephone Encounter - Lindsay Rios RN - 10/24/2024 5:25 PM EDT Rafa with [facility] is calling due to pharmacy unable to fill levaquin due to level 1 severe reaction with the multaq patient takes. When this happened when patient was d/c from [facility] the antibitoc was change to cefdinir 300mg. Rafa needs called back with information along with patient and a different medication sent to pharmacy. * Telephone Encounter - Magalie Anguiano RN - 10/24/2024 5:00 PM EDT Pt called and is notified of providers message and instructions. Pt voices understanding. Magalie Anguiano RN * Telephone Encounter - Yoesph Fall MD - 10/24/2024 4:55 PM EDT OK for another 7 days of Levaquin Yoseph Fall MD * Telephone Encounter - Padmini Abbott RN - 10/24/2024 3:55 PM EDT Patient's significant other, Mikefernando Gregg calling in with pt speaking in the background. Mike states patient "wants to be back on the antibiotic that she was on when she got out of the hospital". She is coughing up yellow/brown sputum. Pt denies fever, shortness of breath at rest, chest pain, wheezing or other sx's. SpO2 96% on 3 LPM. Reports lasix pills that PCP ordered for her are helping her leg swelling. Please call patient back with reply. [phone] Padmini Abbott RN documented in this encounterOhio [facility]07-01-2025 Telephone encounter Note * Telephone Encounter - Magalie Anguiano RN - 10/24/2024 5:00 PM EDT Pt called and is notified of providers message and instructions. Pt voices understanding. Magalie Anguiano RN [facility]07-01-2025 Telephone encounter Note* Telephone Encounter - Yoseph Fall MD - 10/24/2024 4:55 PM EDT OK to just see her for severe COPD Yoseph Fall MD [facility]07-01-2025 Telephone encounter Note* Telephone Encounter - Yoseph Fall MD - 10/24/2024 4:55 PM EDT OK for another 7 days of Levaquin Yoseph Fall MD [facility]07-01-2025 Telephone encounter Note* Telephone Encounter - Jennifer Hennessy LPN - 10/24/2024 4:25 PM EDT Ubaldo with [facility] calls in regard to order for Palliative Care. In regards to DX: Ubaldo reports they can see pt for severe COPD. Ubaldo reports they cannot treat ptfor back pain unless it is in regards to cancer or something like that. Pt would need to see a painspecialist for that. Please review and advise. Jennifer Hennessy LPN [facility]07-01-2025 Telephone encounter Note* Telephone Encounter - Padmini Abbott RN - 10/24/2024 3:55 PM EDT Patient's significant other, Mike Marysol calling in with pt speaking in the background. Mike states patient "wants to be back on the antibiotic that she was on when she got out of the hospital". She is coughing up yellow/brown sputum. Pt denies fever, shortness of breath at rest, chest pain, wheezing or other sx's. SpO2 96% on 3 LPM. Reports lasix pills that PCP ordered for her are helping her leg swelling. Please call patient back with reply. [phone] Padmini Abbott RN [facility]07-01-2025 Telephone encounter Note* Telephone Encounter - Mikayla Broussard RN - 10/24/2024 2:50 PM EDT Palliative Medicine Referral Assessment Referral Accepted: Yes, Location: Pall Med at Home. Patient current location: Home: Timeframe for schedulin-2 weeks Pall Med appropriate diagnosis: Diagnosis J44.9 (ICD-10-CM) - Stage 3 severe COPD by GOLD classification ([facility]) M54.40,G89.29 (ICD-10-CM) - Chronic low back pain with sciatica, sciatica laterality unspecified, unspecified back pain laterality Established with Inpatient Pall Med team: no Reason for consult: introduction to services, goals of care, fatigue, dyspnea, symptom support , and anxiety/mood and chronic pain [facility] no safety concerns identified by nurse. Mikayla Broussard RN October 24, 2024 [facility]07-01-2025 Miscellaneous Notes* Telephone Encounter - Mikayla Broussard RN - 10/24/2024 2:50 PM EDT Palliative Medicine Referral Assessment Referral Accepted: Yes, Location: Pall Med at Home. Patient current location: Home: Timeframe for schedulin-2 weeks Pall Med appropriate diagnosis: Diagnosis J44.9 (ICD-10-CM) - Stage 3 severe COPD by GOLD classification ([facility]) M54.40,G89.29 (ICD-10-CM) - Chronic low back pain with sciatica, sciatica laterality unspecified, unspecified back pain laterality Established with Inpatient Pall Med team: no Reason for consult: introduction to services, goals of care, fatigue, dyspnea, symptom support , and anxiety/mood and chronic pain Virtual Visit Clinic location: [facility]- no safety concerns identified by nurse. Mikayla Broussard RN October 24, 2024 documented in this encounterOhio Valley Hospital06-30-2025 Telephone encounter Note * Telephone Encounter - Naima Haines MA - 10/23/2024 3:42 PM EDT Rafa notified. Referral faxed, demo, insurance card, OV note, med list faxed to [facility] at [phone] with Palliative Care specified on fax. Naima Haines MA [facility]06-30-2025 Miscellaneous Notes* Telephone Encounter - Naima Haines MA - 10/23/2024 3:42 PM EDT Rafa notified. Referral faxed, demo, insurance card, OV note, med list [facility] at [phone] with Palliative Care specified on fax. Naima Haines MA * Telephone Encounter - Yoseph Fall MD - 10/23/2024 2:46 PM EDT OK for Palliative Care consult as requested Yoseph Fall MD * Telephone Encounter - Magalie Anguiano RN - 10/23/2024 1:33 PM EDT Rafa RN [facility] called in about Pt and states je [...] chronic generalized pain and is on the [place] for it. He states the Pt would like a Palliative care referral for pain and breathing. I told him I don't think they do Palliative care for pain, but for breathing they do. Magalie Anguiano, KAREN documented in this encounterOhio Valley Hospital06-30-2025 Telephone encounter Note * Telephone Encounter - Yoseph Fall MD - 10/23/2024 2:46 PM EDT OK for Palliative Care consult as requested Yoseph Fall MD [facility]06-30-2025 Telephone encounter Note* Telephone Encounter - Magalie Anguiano RN - 10/23/2024 1:33 PM EDT Rafa JONES [facility] called in about Pt and states je [...] chronic generalized pain and is on the [place]row for it. He states the Pt would like a Palliative care referral for pain and breathing. I told him I don't think they do Palliative care for pain, but for breathing they do. Magalie Anguiano RN [facility]06-27-2025 Telephone encounter Note* Telephone Encounter - Padmini Abbott RN - 10/20/2024 4:43 PM EDT Daughter returned call and given provider's message below. Padmini Abbott RN [facility]06-27-2025 Miscellaneous Notes* Telephone Encounter - Padmini [...] Reports both of patient's feet have been "very" swollen for about 3 days now and asking if Dr. Fall will order pt a water pill. Swelling goes up into each ankle area. She has tried contacting [facility] over the past couple of [...] . Padmini Abbott RN documented in this encounterOhio Valley Hospital06-27-2025 Telephone encounter Note * Telephone Encounter - Naima Haines MA - 10/20/2024 4:27 PM EDT Message left for Symontee to call back. Naima Haines MA [facility]06-27-2025 Telephone encounter Note* Telephone Encounter - Yoseph Fall MD - 10/20/2024 4:20 PM EDT OK to start Lasix 20 mg daily as ordered to help with the swelling Yoseph Fall MD [facility]06-27-2025 Telephone encounter Note* Telephone Encounter - Padmini Abbott RN - 10/20/2024 3:41 PM EDT Patient's daughter Sinan Gonzalez calling in, with patient speaking in the background. Reports both of patient's feet have been "very" swollen for about 3 days now and asking if Dr. Fall will order pt a water pill. Swelling goes up into each ankle area. She has tried contacting [facility] over the past couple of [...] Please call daughter with reply, . Padmini Abbott, RN [facility]06-27-2025 Telephone encounter Note* Telephone Encounter - Yoseph Flal MD - 10/20/2024 9:25 AM EDT Noted Palliative Care consult ordered Yoseph Fall MD [facility]06-27-2025 Miscellaneous Notes* Telephone Encounter - Yoseph Fall MD - 10/20/2024 9:25 AM EDT Noted Palliative Care consult ordered Yoseph Fall MD * Telephone Encounter - Martínez Louie RN - 10/19/2024 12:56 PM EDT Monae- nurse- [facility]- reports she saw patient today. Noted [...] referral to palliative care. documented in this encounterOhio Valley Hospital06-27-2025 Telephone encounter Note * Telephone Encounter - Yoseph Fall MD - 10/20/2024 9:14 AM EDT Noted and agree Yoseph Fall MD [facility]06-27-2025 Miscellaneous Notes* Telephone Encounter - Yoseph [...] 10:43 AM EDT Vilma OT calling from [facility] to report plan of care for [...] Advise, Judy Bliss RN documented in this encounterOhio Valley Hospital06-26-2025 Telephone encounter Note * Telephone Encounter [...] back needed unless Questions Judy Bliss RN [facility]06-26-2025 Telephone encounter Note* Telephone Encounter - Martínez Louie RN - 10/19/2024 12:56 PM EDT Monae- nurse- [facility]- reports she saw patient today. Noted [...] pcp to place referral to palliative care. [facility]06-[facility]-2025 Telephone encounter Note* Telephone Encounter - Judy Bliss RN - 10/18/2024 10:43 AM EDT Vilma OT calling from [facility] to report plan of care for [...] Please review and Advise, Judy Bliss RN [facility]06-24-2025 History of Present illness Narrative* Yoseph [...] visit. Either the patient or their legal insurance sales representative has been informed of the [...] [place], Cardio in 1 month,and Lindsay Whitehead TOE LINING CLOSER with [facility] in 1 week. Is using 3 L continuous oxygen. Anila getting scheduled for TAVR Is going to be having HH PT come out 3 x a week. She has more pain due to moving around more. Has had nurses out a few times to check her vitals. Is getting set up with Pain Management through Hospice. Below copied from [employer]: History of Present Illness Chief Complaint: Shortness [...] Secondary to that she presents for evaluation [facility] Narrative Medical decision making narrative: Patient arrived [...] 180 mg twice daily. Discussed with the shirt bander Dr. Hopkins today. Discharge on verapamil and [...] [place]) - ICD9: 496, ICD10: J44.9 (primary diagnosis) [...] Past Histories independently gathered by the clinical director of sales support and the remaining scribed note accurately describes my personal service to the patient. Yoseph Fall MD The documentation for this note was completed by Naima Haines MA acting as scribe for Yoseph Fall MD. October 17, 2024 2:34 PM. Naima Haines MA documented in this encounterOhio Valley Hospital06-24-2025 NoteHNO ID: [id number] Author: YOSEPH FALL MD Service: ? Author [...] visit. Either the patient or their legal insurance sales representative has been informed of the [...] Cardio in 1 month, and Lindsay Whitehead TOE LINING CLOSER with [facility] in 1 week. Is using 3 L continuous oxygen. Will be getting scheduled for TAVR Is going to be having HH PT come out 3 x a week. She has more pain due to moving around more. Has had nurses out a few times to check her vitals. Is getting set up with Pain Management through Hospice. Below copied from [employer]: History of Present Illness Chief Complaint: Shortness [...] to maintain sats >90 (more content not included)...[facility]06-20-2025 Telephone encounter Note* Telephone Encounter - Naima Haines MA - 10/13/2024 4:52 PM EDT Edda notified. Naima Haines MA [facility]06-20-2025 Miscellaneous Notes* Telephone Encounter - Naima Haines MA - 10/13/2024 4:52 PM EDT Edda notified. Naima Haines MA * Telephone Encounter - Yoseph Fall MD - 10/13/2024 4:48 PM EDT OK for delay of care order as requested Yoseph Fall MD * Telephone Encounter - Judy Bliss RN - 10/13/2024 4:38 PM EDT Edda from [facility] calls and states that they were supposed to do a PT evaluation this week, however, they are still waiting on insurance. Edda asking for delay care order. Please review and advise, Judy Bliss RN documented in this encounterOhio Valley Hospital06-20-2025 Telephone encounter Note * Telephone Encounter - Yoseph Fall MD - 10/13/2024 4:48 PM EDT OK for delay of care order as requested Yoseph Fall MD [facility]-20-2025 Telephone encounter Note* Telephone Encounter - Judy Bliss RN - 10/13/2024 4:38 PM EDT Edda from [facility] calls and states that they were supposed to do a PT evaluation this week, however, they are still waiting on insurance. Edda asking for delay care order. Please review and advise, Judy Bliss RN [facility]06-19-2025 Telephone encounter Note* Telephone Encounter - Naima Haines MA - 10/12/2024 11:55 AM EDT Tried to reach pt, VM full, unable to leave message. Naima Haines MA [facility]06-19-2025 Miscellaneous Notes* Telephone Encounter - Naima [...] hydrocodone was given to her 3 x/daily. Morrow refilled today #30 to take 1 pill BID. Do you want to refill for her to increase the dosage to 3 x a day or do you want to discuss furtherat pt appt on 10/17/24 Naima Haines MA * Telephone Encounter - Tawanna Orly - 10/12/2024 9:46 AM EDT Prescription Refill [...] was given to her 3 x/daily. Orly Tawanna October 12, 2024 9:47 AM documented in this encounterOhio Valley Hospital06-19-2025 Telephone encounter Note * Telephone Encounter - Yoseph Fall MD - 10/12/2024 11:46 AM EDT She may go back to this dose of prednisone; will review at her appt Yoseph Fall MD [facility]-19-2025 Telephone encounter Note* Telephone Encounter - Naima Haines MA - 10/12/2024 10:11 AM EDT Per pt Patient states that in the hospital she was given 40 mg of the prednisone for 4 days. Also the hydrocodone was given to her 3 x/daily. Morrow refilled today #30 to take 1 pill BID. Do you want to refill for her to increase the dosage to 3 x a day or do you want to discuss furtherat pt appt on 10/17/24 Naima Haines MA [facility]-19-2025 Telephone encounter Note* Telephone Encounter - [...] Orly Stacy October 12, 2024 9:47 AM [facility]-19[facility]2025 Telephone encounter Note* Telephone Encounter - Yoseph Fall MD - 10/12/2024 9:35 AM EDT OK to refill as ordered Yoseph Fall MD [facility]-19[facility]2025 Miscellaneous Notes* Telephone Encounter - Yoseph [...] 11, 2024 4:00 PM documented in this encounterOhio Valley Hospital06-18-2025 Telephone encounter Note * Telephone Encounter [...] Bliss RN October 11, 2024 4:00 PM [facility]-17-2025 Telephone encounter Note* Telephone Encounter - Naima Haines MA - 10/10/2024 4:46 PM EDT Detailed message left on aRfa's identified VM. Naima Haines MA [facility]06-17-2025 Miscellaneous Notes* Telephone Encounter - Naima Haines MA - 10/10/2024 4:46 PM EDT Detailed message left on Rafa's identified VM. Naima Haines MA * Telephone Encounter - Yoseph Fall MD - 10/10/2024 4:41 PM EDT Noted OK to continue Coreg and inhalers; will monitor Yoseph Fall MD * Telephone Encounter - Martínez Louie, KAREN - 10/10/2024 4:30 PM EDT Rafa- [facility]- reports he did start of care today [...] with pcp on 10/17/24 documented in this encounterOhio Valley Hospital06-17-2025 Telephone encounter Note * Telephone Encounter - Yoseph Fall MD - 10/10/2024 4:41 PM EDT Noted OK to continue Coreg and inhalers; will monitor Yoseph Fall MD [facility]-17-2025 Telephone encounter Note* Telephone Encounter - Martínez Louie, RN - 10/10/2024 4:30 PM EDT Rafa- [facility]- reports he did start of care [...] for hosp f/u with pcp on 10/17/24 [facility]-17[facility]2025 NoteHNO ID: [id number] Author: NAIMA HAINES MA Service: ? Author Type: Clinical Trial Assistant Type: Progress Notes Filed: 10/12/2024 09:36 Note Text: TRANSITION CARE MANAGEMENT (TCM) INITIAL CONTACT Clinical Trial Assistant Outreach Provider Action/FYI: 14 Day TCM Started [...] in 1 month Follow up with Cardio SOUND EFFECTS TECHNICIAN, Lindsay Whitehead in 1 week 10/10/24-Message left [...] Valve Stenosis 2) A-fib Below copied from Fresh[employer]: History of Present Illness Chief Complaint: Shortness [...] COVID influenza and RSV testing were negative. [facility] going against acute blood loss [...] for TAVR on outp (more content not included)...[facility]-17-2025 Telephone encounter Note* Telephone Encounter - Naima Haines MA - 10/10/2024 8:24 AM EDT TCM note started. Naima Haines MA [facility]06-17[facility]25 History of Present illness Narrative* Naima Haines MA - 10/10/2024 8:24 AM EDT TRANSITION CARE MANAGEMENT (TCM) INITIAL CONTACT Clinical Trial Assistant Outreach Provider Action/FYI: 14 Day TCM Started on Nicotine patches 14 mg daily, Verapamil changed from 240 mg to 180 mg 1 pill BID, [id number] mg 1 pill BID, Coreg 6.25 mg [...] in 1 month Follow up with Cardio SOUND EFFECTS TECHNICIAN, Lindsay Whitehead in 1 week 10/10/24-Message left [...] Valve Stenosis 2) A-fib Below copied from Fresh[employer]: History of Present Illness Chief Complaint: Shortness [...] 180 mg twice daily. Discussed with the shirt bander Dr. Hopkins today. Discharge on verapamil and [...] for provider to review documented in this encounterOhio Valley Hospital06-17-2025 Miscellaneous Notes* Telephone Encounter - Naima Haines MA - 10/10/2024 8:24 AM EDT TCM note started. Naima Haines MA * Telephone Encounter - Magalie Anguiano RN - 10/09/2024 7:46 PM EDT Pt's significant other Mike called and is notified of providers message and instructions. He voices understanding. Pt was discharged today you can't do TCM on same day as discharge, you have to waituntil at least 1 day after D/C. Magalie Anguiano RN * Telephone Encounter - Naima Haines MA - 10/09/2024 7:35 PM EDT Message left for pt or significant other Mike to call back. Please start a TCM encounter/note when pt calls back. Has appt for hospital d/c on 10/17/24. Naima Haines MA * Telephone Encounter - Yoseph Fall MD - 10/09/2024 7:33 PM EDT They may wait until [facility] can get the Multaq tomorrow Yoseph Fall MD * Telephone Encounter - Magalie Anguiano RN - 10/09/2024 7:20 PM EDT Pt's significant other Mike called in and reports Pt was in the hospital for 11 days and released about an hour and a half ago. He states [facility] in [place] doesn't have the Multaq in stock, but [...] back to them. Please call and advise. Magalie Anguiano, RN documented in this encounterOhio Valley Hospital06-17-2025 NotePatient Outreach (FAMPWS) DENIA GONZALEZ ([id number]) 1955 F Date Time Provider Department 10/10/24 NAIMA HAINES During your visit today, we recorded the following information about you: Naima Haines MA 10/12/2024 9:36 AM Signed TRANSITION CARE MANAGEMENT (TCM) INITIAL CONTACT Clinical Trial Assistant Outreach Provider Action/FYI: 14 Day TCM Started [...] in 1 month Follow up with Cardio SOUND EFFECTS TECHNICIAN, Lindsay Whitehead in 1 week 10/10/24-Message left [...] Valve Stenosis 2) A-fib Below copied from Fresh[employer]: History of Present Illness Chief Complaint: Shortness [...] COVID influenza and RSV testing were negative. [facility] is stable going against acute blood loss [...] and mean peak gradi (more content not included)...[facility]-16-2025 Telephone encounter Note* Telephone Encounter - Magalie Anguiano RN - 10/09/2024 7:46 PM EDT Pt's significant other Mike called and is notified of providers message and instructions. He voices understanding. Pt was discharged today you can't do TCM on same day as discharge, you have to waituntil at least 1 day after D/C. Magalie Anguiano RN [facility]-16-2025 Telephone encounter Note* Telephone Encounter - Naima Haines MA - 10/09/2024 7:35 PM EDT Message left for pt or significant other Mike to call back. Please start a TCM encounter/note when pt calls back. Has appt for hospital d/c on 10/17/24. Naima Haines MA [facility]-16-2025 Telephone encounter Note* Telephone Encounter - Yoseph Fall MD - 10/09/2024 7:33 PM EDT They may wait until [facility] can get the Multaq tomorrow Yoseph Fall MD [facility]-16-2025 Telephone encounter Note* Telephone Encounter - Magalie Anguiano RN - 10/09/2024 7:20 PM EDT Pt's significant other Mike called in and reports Pt was in the hospital for 11 days and released about an hour and a half ago. He states [facility] in [place] doesn't have the Multaq in stock, but [...] back to them. Please call and advise. Magalie Anguiano, RN [facility]-16-2025 Discharge summary [facility] Medical Records Department [address] [place] [address] Discharge Summary 10/09/24 1558 MR#: [id number] Acct: [id number] Name: DENIA GONZALEZ Rep #:[id number] : 1955 69 From: Alessandro Liu PCP: Dr. Yoseph Fall MD Status:AD M IN Location: DAY [facility] Prov[facility] Date of Admission: 09/29/24 Date [...] mg twice daily. * Discussed with the shirt bander Dr. Hopkins today. Discharge on verapamil and [...] 86.9 H, Lymph % (Auto) 6.9 L, Aiken %(Auto) 5.3, Eos % (Auto) 0.0, Baso [...] Health Service Charges/Coding Visit Charges Inpatient E&M: 82264 Disch Hosp >30min 10/09/24 1606 Cosigner Signature (if applicable): CC: Dr. Yoseph Fall MD; Dr. Alessandro Palma MD~ Signed [facility]06-16-2025 Discharge summary [facility] Medical Records Department [address] [place] [address] Instructions for Home/Discharge Instructions 10/09/24 1542 MR#: [id number] Acct: [id number] Name: DENIA GONZALEZ Rep #:[id number] : 1955 69 From: Alessandro Liu PCP: [...] MD; Dr. Jan Bolanos MD ~ Signed [facility]06-16-2025 [facility]06-16-2025 Telephone encounter Note* Telephone Encounter - Naima Haines MA - 10/09/2024 3:56 PM EDT Detailed message left on below's identified and confidential VM. Naima Haines MA [facility]06-16-2025 Miscellaneous Notes* Telephone Encounter - Naima [...] onset A-fib. Please call Iman back at [phone]. Sukhi Marrero RN [facility] Telephone encounter Note * Telephone Encounter - Yoseph Fall MD - 10/09/2024 3:54 PM EDT Yes, I will follow their HH orders for SN, PT, OT Yoseph Fall MD [facility]06-16-2025 Telephone encounter Note* Telephone Encounter - Sukhi Marrero RN - 10/09/2024 3:09 PM EDT Iman with [facility] calls to ask if provider will follow their HH orders for SN, PT, OT. Patient discharging home today from [facility] after being treated for COPD exacerbation and new onset A-fib. Please call Iman back at [phone]. Sukhi Marrero RN [facility]06-16-2025 Telephone encounter Note* Telephone Encounter - Yoseph Fall MD - 10/09/2024 2:09 PM EDT Noted Yoseph Fall MD [facility]06-16-2025 Miscellaneous Notes* Telephone Encounter - Yoseph Fall MD - 10/09/2024 2:09 PM EDT Noted Yoseph Fall MD * Telephone Encounter - Padmini Abbott RN - 10/09/2024 8:39 AM EDT Palma Anguiano with [facility] calling to update provider that patient has been at [facility] since 09/29/24. Padmini Abbott RN [facility] Telephone encounter Note * Telephone Encounter - Padmini Abbott RN - 10/09/2024 8:39 AM EDT Palma Anguiano with [facility] calling to update provider that patient has been at [facility] since 09/29/24. Padmini Abbott RN [facility]06-15-2025 Progress note Author Lynne Schafer [facility] Note Date/Time October 08, 2024 3:37 pm [facility] Medical Records Department [address] [place] [address] Progress Note 10/08/24 1100 MR#: [id number] Acct: [id number] Name: DENIA GONZALEZ Rep #:[id number] : 1955 69 From: Lynne Schafer MD PCP: Dr. Yoseph Fall MD Status:AD M IN Location: [place] [address] Subjective Subjective Patient seen and examined. Patient [...] 89.1 H, Lymph % (Auto) 5.1 L, Aiken %(Auto) 4.7, Eos % (Auto) 0.0, Baso [...] PO eliquis. Charges/Coding Visit Charges Inpatient E&M: 67651 Subs Hosp L3 10/08/24 1537 <Electronically signed by Lynne Schafer MD> Lynne Schafer MD Cosigner Signature (if applicable): CC: ~ Signed [facility] Work Phone: 1(288) 760-855706-15-2025 Progress note Author Michael Plasencia [facility] Note Date/Time October 08, 2024 2:15 pm [facility] Medical Records Department [address] [place] [address] Progress Note - Cardiology 10/08/24 1058 MR#: [id number] Acct: [id number] Name: DENIA GONZALEZ Rep #:[id number] : 1955 69 From: Michael Plasencia MD PCP: Dr. Yoseph Fall MD Status:AD M IN Location: [place] [address] Objective Data an episode of tachycardia today [...] 89.1 H, Lymph % (Auto) 5.1 L, Aiken %(Auto) 4.7, Eos % (Auto) 0.0, Baso [...] 89.1 H, Lymph % (Auto) 5.1 L, Aiken % (Auto) 4.7, Eos % (Auto) 0.0, [...] 10/08/24 at 1415 Visit Charges Inpatient E&M: 66858 Subs Hosp 10/08/24 1415<Electronically signed by Michael Plasencia MD> Cosigner Signature (if applicable): cc: ~* Signed [facility] Work Phone: 1(496) 325-410406-15-2025 Progress note [facility] Medical Records Department [address] [place] [address] Progress Note 10/08/24 1100 MR#: [id number] Acct: [id number] Name: DENIA GONZALEZ Rep #:[id number] : 1955 69 From: Lynne Schafer MD PCP: Dr. Yoseph Fall MD Status:AD M IN [facility] Subjective Subjective Patient seen and examined. Patient went into A-fib with RVR today with a heart rate going up to lqv818s and 190s. She did complain of palpitations [...] 89.1 H, Lymph % (Auto) 5.1 L, Aiken %(Auto) 4.7, Eos % (Auto) 0.0, Baso [...] PO eliquis. Charges/Coding Visit Charges Inpatient E&M: 06224 Subs Hosp L3 10/08/24 1537 Lynne Schafer MD Cosigner Signature (if applicable): CC: ~ Signed [facility]06-15-2025 Progress note [facility] Medical Records Department [address] [place] [address] Progress Note - Cardiology 10/08/24 1058 MR#: [id number] Acct: [id number] Name: DENIA GONZALEZ Rep #:[id number] : 1955 69 From: Michael Plasencia MD PCP: Dr. Yoseph Fall MD Status:AD M IN Location: [place] [address] Objective Data an episode of tachycardia today [...] 89.1 H, Lymph % (Auto) 5.1 L, Aiken %(Auto) 4.7, Eos % (Auto) 0.0, Baso [...] 89.1 H, Lymph % (Auto) 5.1 L, Aiken % (Auto) 4.7, Eos % (Auto) 0.0, [...] 10/08/24 at 1415 Visit Charges Inpatient E&M: 12043 Subs Hosp L3 10/08/24 1415 Cosigner Signature (if applicable): cc: ~* Signed [facility]06-14-2025 Progress note Author Lynne Schafer [facility] Note Date/Time October 07, 2024 6:29 pm [facility] Medical Records Department [address] [place] [address] Progress Note 10/07/24 141 MR#: [id number] Acct: [id number] Name: DENIA GONZALEZ Rep #:[id number] : 1955 69 From: Lynne Schafer MD PCP: Dr. Yoseph Fall MD Status:AD M IN Location: [place] [address] Subjective Subjective Patient seen and examined. She [...] 89.2 H, Lymph % (Auto) 4.3 L, Aiken %(Auto) 5.4, Eos % (Auto) 0.0, Baso [...] by tomorrow. Charges/Coding Visit Charges Inpatient E&M: 31061 Subs Hosp L2 10/07/249 <Electronically signed by Lynne Schafer MD> Lynne Schafer MD Cosigner Signature (if applicable): CC: ~ Signed [facility] Work Phone: 1(595) 383-463206-14-2025 Progress note [facility] Medical Records Department [address] [place] [address] Progress Note 10/07/24 1413 MR#: [id number] Acct: [id number] Name: DENIA GONZALEZ Rep #:[id number] : 1955 69 From: Lynne Schafer MD PCP: Dr. Yoseph Fall MD Status:AD M IN Location: [place] [address]- Subjective Subjective Patient seen and examined. She [...] 89.2 H, Lymph % (Auto) 4.3 L, Aiken %(Auto) 5.4, Eos % (Auto) 0.0, Baso [...] by tomorrow. Charges/Coding Visit Charges Inpatient E&M: 26359 [facility] Hosp L2 10/07/24 9532 Lynne Schafer MD Cosigner Signature (if applicable): CC: ~ Signed [facility]06-14-2025 Progress note Author Michael Plasencia [facility] Note Date/Time October 07, 2024 3:50 pm [facility] Medical Records Department [address] [place] [address] Progress Note - Cardiology 10/07/24 1059 MR#: [id number] Acct: [id number] Name: DENIA GONZALEZ Rep #:[id number] : 1955 69 From: Michael Plasencia MD PCP: Dr. Yoseph Fall MD Status:AD M IN Location: [place] [address] Objective Data No further episodes overnight Vital [...] 89.2 H, Lymph % (Auto) 4.3 L, Aiken %(Auto) 5.4, Eos % (Auto) 0.0, Baso [...] 89.2 H, Lymph % (Auto) 4.3 L, Aiken % (Auto) 5.4, Eos % (Auto) 0.0, [...] to be atrial flutter she will need assisted anticoagulation for stroke prevention 10/07/24 1338 <Electronically signed by Michael Plasencia MD> Cosigner Signature (if applicable): CC: ~ Signed ADDENDUM by Dr. Michael Plasencia MD on 10/07/24 at 1550 Visit Charges Inpatient E&M: 16723 Subs Hosp L3 10/07/24 1550<Electronically signed by Michael Plasencia MD> Cosigner Signature (if applicable): cc: ~* Signed [facility] Work Phone: 1(972) 399-824906-14-2025 Progress note [facility] Medical Records Department [address] [place] [address] Progress Note - Cardiology 10/07/24 1059 MR#: [id number] Acct: [id number] Name: DENIA GONZALEZ Rep #:[id number] : 1955 69 From: Michael Plasencia MD PCP: Dr. Yoseph Fall MD Status:AD M IN Location: [place] [address] Objective Data No further episodes overnight Vital [...] 89.2 H, Lymph % (Auto) 4.3 L, Aiken %(Auto) 5.4, Eos % (Auto) 0.0, Baso [...] 89.2 H, Lymph % (Auto) 4.3 L, Aiken % (Auto) 5.4, Eos % (Auto) 0.0, [...] to be atrial flutter she will need reimbursement manager anticoagulation for stroke prevention 10/07/24 1338 Cosigner Signature (if applicable): CC: ~ Signed ADDENDUM by Dr. Michael Plasencia MD on 10/07/24 at 1550 Visit Charges Inpatient E&M: 39273 [facility] Hosp 10/07/24 1550 Cosigner Signature (if applicable): cc: ~* Signed [facility]06-13-2025 Progress note Author Michael Plasencia [facility] Note Date/Time October 06, 2024 9:11 pm [facility] Medical Records Department [address] [place] [address] Progress Note - Cardiology 10/06/24 1422 MR#: [id number] Acct: [id number] Name: DENIA GONZALEZ Rep #:[id number] : 1955 69 From: Michael Plasencia MD PCP: Dr. Yoseph Fall MD Status:AD M IN Location: [place] [address] Subjective Subjective Reports palpitations with these episodes. [...] 90.6 H, Lymph % (Auto) 4.6 L, Aiken %(Auto) 3.9, Eos % (Auto) 0.0, Baso [...] 90.6 H, Lymph % (Auto) 4.6 L, Aiken % (Auto) 3.9, Eos % (Auto) 0.0, [...] atrial flutter versus sinus tachycardia versus MAT. Ifitzel has a recurrent episode we will consider restarting amiodarone gtt with the plan to transition to oral Multaq and 30-day event monitor for further evaluation. If it turns out to be atrial flutter she will need anticoagulation for stroke evaluation. Charges/Coding Visit Charges Inpatient E&M: 47962 Subs Hosp L3 10/06/242108 <Electronically signed by Michael Plasencia MD> Cosigner Signature (if applicable): CC: ~ Signed ADDENDUM by Dr. Michael Plasencia MD on 10/06/24 at 2111 Addendum If it turns out to be atrial flutter she will need anticoagulation for stroke prevention 10/06/242110<Electronically signed by Michael Plasencia MD> Cosigner Signature (if applicable): cc: ~* Signed [facility] Work Phone: 1(444) 769-798706-13-2025 Progress note [facility] Medical Records Department [address] [place] [address] Progress Note - Cardiology 10/06/24 1422 MR#: [id number] Acct: [id number] Name: DENIA GONZALEZ Rep #:[id number] : 1955 69 From: Michael Plasencia MD PCP: Dr. Yoseph Fall MD Status:AD M IN Location: [place] [address] Subjective Subjective Reports palpitations with these episodes. [...] 90.6 H, Lymph % (Auto) 4.6 L, Aiken %(Auto) 3.9, Eos % (Auto) 0.0, Baso [...] 90.6 H, Lymph % (Auto) 4.6 L, Aiken % (Auto) 3.9, Eos % (Auto) 0.0, [...] atrial flutter versus sinus tachycardia versus MAT. Ifshparas has a recurrent episode we will consider restarting amiodarone gtt with the plan to transition to oral Multaq and 30-day event monitor for further evaluation. If it turns out to be atrial flutter she will need anticoagulation for stroke evaluation. Charges/Coding Visit Charges Inpatient E&M: 97018 [facility] Hosp L3 10/06/242108 Cosigner Signature (if applicable): CC: ~ Signed ADDENDUM by Dr. Michael Plasencia MD on 10/06/24 at 2111 Addendum If it turns out to be atrial flutter she will need anticoagulation for stroke prevention 10/06/242110 Cosigner Signature (if applicable): cc: ~* Signed [facility]06-13-2025 Progress note Author Lynne Schafer [facility] Note Date/Time October 06, 2024 5:23 pm [facility] Medical Records Department [address] [place] [address] Progress Note 10/06/24 1720 MR#: [id number] Acct: [id number] Name: DENIA GONZALEZ Rep #:[id number] : 1955 69 From: Lynne Schafer MD PCP: Dr. Yoseph Fall MD Status:AD M IN Location: [place] [address] Subjective Subjective Patient seen and examined today. [...] 90.6 H, Lymph % (Auto) 4.6 L, Aiken %(Auto) 3.9, Eos % (Auto) 0.0, Baso [...] therapeutic Lovenox Charges/Coding Visit Charges Inpatient E&M: 71132 Subs Hosp L2 10/06/24 172 <Electronically signed by Lynne Schafer MD> Lynne Schafer MD Cosigner Signature (if applicable): CC: ~ Signed [facility] Work Phone: 1(182) 380-543306-13-2025 Progress note [facility] Medical Records Department [facility] [place] [address] Progress Note 10/06/24 172 MR#: [id number] Acct: [id number] Name: DENIA GONZALEZ Rep #:[id number] : 1955 69 From: Lynne Schafer MD PCP: Dr. Yoseph Fall MD Status:AD M IN Location: [place] [address] Subjective Subjective Patient seen and examined today. [...] [facility] Objective Data Objective Data Vital Signs: Vital [...] 90.6 H, Lymph % (Auto) 4.6 L, Aiken %(Auto) 3.9, Eos % (Auto) 0.0, Baso [...] therapeutic Lovenox Charges/Coding Visit Charges Inpatient E&M: 57012 Subs Hosp L2 10/06/24 1723 Lynne Schafer MD Cosigner Signature (if applicable): CC: ~ Signed [facility]06-12-2025 Progress note Author Lynne [facility] Note Date/Time October 05, 2024 6:28 pm [facility] Medical Records Department [address] [place] [address] Progress Note 10/05/24 1233 MR#: [id number] Acct: [id number] Name: DENIA GONZALEZ Rep #:[id number] : 1955 69 From: Lynne Schafer MD PCP: Dr. Yoseph Fall MD Status:AD M IN Location: [place] [address] Subjective Subjective Patient seen and examined. She [...] 91.1 H, Lymph % (Auto) 5.2 L, Aiken %(Auto) 3.0, Eos % (Auto) 0.0, Baso [...] by tomorrow. Charges/Coding Visit Charges Inpatient E&M: 72529 Subs Hosp L2 10/05/24 1828 <Electronically signed by Lynne Schafer MD> Lynne Schafer MD Cosigner Signature (if applicable): CC: ~ Signed [facility] Work Phone: 1(868) 634-734806-12-2025 Progress note [facility] Medical Records Department [address] [facility] [place] [address] Progress Note 10/05/24 1233 MR#: [id number] Acct: [id number] Name: DENIA GONZALEZ Rep #:[id number] : 1955 69 From: Lynne Schafer MD PCP: Dr. Yoseph Fall MD Status:AD M IN Location: [place] [address] Subjective Subjective Patient seen and examined. She [...] 91.1 H, Lymph % (Auto) 5.2 L, Aiken %(Auto) 3.0, Eos % (Auto) 0.0, Baso [...] by tomorrow. Charges/Coding Visit Charges Inpatient E&M: 91203 Subs Hosp L2 10/05/24 6062 Lynne Schafer MD Cosigner Signature (if applicable): CC: ~ Signed [facility]06-11-2025 Progress note Author Lynne Schafer [facility] Note Date/Time October 04, 2024 5:59 pm [facility] Medical Records Department [address] [place] [address] Progress Note 10/04/24 1206 MR#: [id number] Acct: [id number] Name: DENIA GONZALEZ Rep #:[id number] : 1955 69 From: Lynne Schafer MD PCP: Dr. Yoseph Fall MD Status:AD M IN Location: [place] [address] Subjective Subjective Patient seen and examined. She [...] 90.1 H, Lymph % (Auto) 6.4 L, Aiken %(Auto) 2.9, Eos % (Auto) 0.0, Baso [...] 24-48 hours. Charges/Coding Visit Charges Inpatient E&M: 31191 Subs Hosp L2 10/04/24 6684 <Electronically signed by Lynne Schafer MD> Lynne Schafer MD Cosigner Signature (if applicable): CC: ~ Signed [facility] Work Phone: 1(510) 872-481406-11-2025 Progress note [facility] Medical Records Department [address] [place] [address] Progress Note 10/04/24 1206 MR#: [id number] Acct: [id number] Name: DENIA GONZALEZ Rep #:[id number] : 1955 69 From: Lynne Schafer MD PCP: Dr. Yoseph Fall MD Status:AD M IN Location: [place] [address] Subjective Subjective Patient seen and examined. She [...] 90.1 H, Lymph % (Auto) 6.4 L, Aiken %(Auto) 2.9, Eos % (Auto) 0.0, Baso [...] 24-48 hours. Charges/Coding Visit Charges Inpatient E&M: 18089 Subs Hosp L2 10/04/24 3066 Lynne Schafer MD Cosigner Signature (if applicable): CC: ~ Signed [facility]06-11-2025 Progress note Author Junito Madrid [facility] Note Date/Time October 04, 2024 10:2 2am [facility] Medical Records Department [address] [place] [address] Progress Note - Cardiology 10/04/24 1014 MR#: [id number] Acct: [id number] Name: DENIA GONZALEZ Rep #:[id number] : 1955 69 From: Junito Madrid MD PCP: Dr. Yoseph Fall MD Status:AD M IN Location: [place] [address] Subjective Subjective Patient is resting comfortably in [...] 90.1 H, Lymph % (Auto) 6.4 L, Aiken %(Auto) 2.9, Eos % (Auto) 0.0, Baso [...] 90.1 H, Lymph % (Auto) 6.4 L, Aiken % (Auto) 2.9, Eos % (Auto) 0.0, [...] baseline she will be reevaluated inin the [facility] office for further evaluation and [...] tolerated. 3. Patient should follow-up with the [facility] in 2 to 3 weeks after discharge when she is completely cleared of her COPD exacerbation. 4. The patient should call to schedule that appointment with Dr. Madrid or one of the advanced practitioners. 5. From a cardiovascular standpoint the patient should be able to be dischargedonce her COPD exacerbation is controlled. Charges/Coding Visit Charges Inpatient E&M: 20313 Subs Hosp L3 10/04/24 1022 <Electronically signed by Junito Madrid MD> Cosigner Signature (if applicable): CC: ~ Signed [facility] Work Phone: 1(318) 882-298706-11-2025 Progress note [facility] Medical Records Department [address] [place] [address] Progress Note - Cardiology 10/04/24 1014 MR#: [id number] Acct: [id number] Name: DENIA GONZALEZ Rep #:[id number] : 1955 69 From: Junito Madrid MD PCP: Dr. Yoseph Fall MD Status:AD M IN Location: [place] [address] Subjective Subjective Patient is resting comfortably in [...] Intake and Output for Last 24 Hours 06/09/25 06/10/25 06/11/25 23:59 23:59 23:59 Intake Total 1393.20 / [...] 90.1 H, Lymph % (Auto) 6.4 L, Aiken %(Auto) 2.9, Eos % (Auto) 0.0, Baso [...] 90.1 H, Lymph % (Auto) 6.4 L, Aiken % (Auto) 2.9, Eos % (Auto) 0.0, [...] baseline she will be reevaluated inin the [facility] office for further evaluation and [...] tolerated. 3. Patient should follow-up with the [facility] [place] [facility] in 2 to 3 weeks after discharge when she is completely cleared of her COPD exacerbation. 4. The patient should call to schedule that appointment with Dr. Madrid or one of the advanced practitioners. 5. From a cardiovascular standpoint the patient should be able to be dischargedonce her COPD exacerbation is controlled. Charges/Coding Visit Charges Inpatient E&M: 70232 [facility] Hosp 10/04/24 1022 Cosigner Signature (if applicable): CC: ~ Signed [facility]06-10-2025 Progress note Author Lynne Schafer [facility] Note Date/Time October 03, 2024 5:50 pm [facility] Medical Records Department [address] [place] [address] Progress Note 10/03/24 1218 MR#: [id number] Acct: [id number] Name: DENIA GONZALEZ Rep #:[id number] : 1955 69 From: Lynne Schafer MD PCP: Dr. Yoseph Fall MD Status:AD M IN Location: [place] [address]- 1 Subjective Subjective Patient seen and examined with [...] 93.2 H, Lymph % (Auto) 5.2 L, Aiken %(Auto) 1.2, Eos % (Auto) 0.0, Baso [...] MD Eufemia Yoseph Performed By: Saray Torrez, CS Rhythm Strip Rhythm Strip: A-fib Rate: 100 [...] therapeutic Lovenox Charges/Coding Visit Charges Inpatient E&M: 51966 Subs Hosp L2 10/03/24 0808 <Electronically signed by Lynne Schafer MD> Lynne Schafer MD Cosigner Signature (if applicable): CC: ~ Signed [facility] Work Phone: 1(124) 727-426406-10-2025 Progress note [facility] Medical Records Department [address] [place] [address] Progress Note 10/03/24 1218 MR#: [id number] Acct: [id number] Name: DENIA GONZALEZ Rep #:[id number] : 1955 69 From: Lynne Schafer MD PCP: Dr. Yoseph Fall MD Status:AD M IN Location: [place] [address] Subjective Subjective Patient seen and examined with [...] 93.2 H, Lymph % (Auto) 5.2 L, Aiken %(Auto) 1.2, Eos % (Auto) 0.0, Baso [...] MD Eufemia Yoseph Performed By: Saray Torrez, CS Rhythm Strip Rhythm Strip: A-fib Rate: 100 [...] therapeutic Lovenox Charges/Coding Visit Charges Inpatient E&M: 64922 Subs Hosp L2 10/03/24 0715 Lynne Schafer MD Cosigner Signature (if applicable): CC: ~ Signed [facility]06-10-2025 Progress note Author Junito Madrid [facility] Note Date/Time October 03, 2024 8:49 am [facility] Medical Records Department [address] [place] [address] Progress Note - Cardiology 10/03/24 0840 MR#: [id number] Acct: [id number] Name: DENIA GONZALEZ Rep #:[id number] : 1955 69 From: Junito Madrid MD PCP: Dr. Yoseph Fall MD Status:AD M IN Location: [place] [address] Subjective Subjective Patient is resting comfortably in [...] MD Yoseph Fall Performed By: Saray Torrez [facility] Physical Exam Const alert and oriented x3 [...] as tolerated. Charges/Coding Visit Charges Inpatient E&M: 94222 Subs Hosp L3 10/03/24 0849 <Electronically signed by Junito Madrid MD> Cosigner Signature (if applicable): CC: ~ Signed [facility] Work Phone: 1(399) 944-202006-10-2025 Progress note [facility] Medical Records Department [address] [place] [address] Progress Note - Cardiology 10/03/2440 MR#: [id number] Acct: [id number] Name: DENIA GONZALEZ Rep #:[id number] : 1955 69 From: Junito Madrid MD PCP: Dr. Yoseph Fall MD Status:AD M IN Location: [place] [address] Subjective Subjective Patient is resting comfortably in [...] MD Eufemia Yoseph Performed By: Saray Torrez, JOE Physical Exam Const alert and oriented [...] as tolerated. Charges/Coding Visit Charges Inpatient E&M: 87126 Subs Hosp L3 10/03/24 0829 Cosigner Signature (if applicable): CC: ~ Signed [facility]06-09-2025 Progress note Author Lynne Schafer [facility] Note Date/Time October 02, 2024 6:52p m [facility] Medical Records Department [address] [place] [address] Progress Note 10/02/24 1220 MR#: [id number] Acct: [id number] Name: DENIA GONZALEZ Rep #:[id number] : 1955 69 From: Lynne Schafer MD PCP: Dr. Yoseph Fall MD Status:AD M IN Location: [place] [address] Subjective Subjective Patient seen and examined. SHe [...] 89.8 H, Lymph % (Auto) 6.1 L, Aiken %(Auto) 3.3, Eos % (Auto) 0.0, Baso [...] therapeutic lovenox Charges/Coding Visit Charges Inpatient E&M: 94681 [facility] Hosp 10/02/24 1852 <Electronically signed by Lynne Schafer MD> Lynne Schafer MD Cosigner Signature (if applicable): CC: ~ Signed [facility] Work Phone: 1(143) 309-238806-09-2025 Progress note [facility] Medical Records Department [address] [place] [address] Progress Note 10/02/24 1220 MR#: [id number] Acct: [id number] Name: DENIA GONZALEZ Rep #:[id number] : 1955 69 From: Lynne Schafer MD PCP: Dr. Yoseph Fall MD Status:AD M IN Location: [place] [address] Subjective Subjective Patient seen and examined. SHe [...] 89.8 H, Lymph % (Auto) 6.1 L, Aiken %(Auto) 3.3, Eos % (Auto) 0.0, Baso [...] therapeutic lovenox Charges/Coding Visit Charges Inpatient E&M: 65669 [facility] Hosp L3 10/02/24 2828 Lynne Schafer MD Cosigner Signature (if applicable): CC: ~ Signed [facility]06-09-2025 Consult note Author Junito Madrid [facility] Note Date/Time October 02, 2024 10:13 am [facility] Medical Records Department [address] [place] [address] Consultation - Cardiology 10/02/24 1000 MR#: [id number] Acct: [id number] Name: DENIA GONZALEZ Rep #:[id number] : 1955 69 From: Junito Madrid MD PCP: Dr. Yoseph Fall MD Status:AD M IN Location: [place] [id number] Assessment & Plan Assessment/Plan (1) Tachycardia: [...] cardiovascular issues that she is aware of. [facility] Medical History RLS (restless legs syndrome) History [...] Applicable: No Charges/Coding Visit Charges Inpatient E&M: 13744 Init Hosp L2 Objective Data Vital Signs: [...] 89.8 H, Lymph % (Auto) 6.1 L, Aiken %(Auto) 3.3, Eos % (Auto) 0.0, Baso [...] 89.8 H, Lymph % (Auto) 6.1 L, Aiken % (Auto) 3.3, Eos % (Auto) 0.0, [...] applicable): CC: Dr. Yoseph Fall MD~ Signed [facility] Work Phone: 1(779) 135-677106-09-2025 Consult note [facility] Medical Records Department [address] [place] [address] Consultation - Cardiology 10/02/24 1000 MR#: [id number] Acct: [id number] Name: DENIA GONZALEZ Rep #:[id number] : 1955 69 From: Junito Madrid MD PCP: Dr. Yoseph Fall MD Status:AD M IN Location: [place] [address] Assessment & Plan Assessment/Plan (1) Tachycardia: PLAN: [...] cardiovascular issues that she is aware of. [facility] Medical History RLS (restless legs syndrome) History [...] mg PO PRN PRN FLARE UPS 1 2/09/15 Unknown History ipratropium 0.5 mg-albuterol 3 mg [...] Applicable: No Charges/Coding Visit Charges Inpatient E&M: 48992 Init Hosp L2 Objective Data Vital Signs: [...] 89.8 H, Lymph % (Auto) 6.1 L, Aiken %(Auto) 3.3, Eos % (Auto) 0.0, Baso [...] 89.8 H, Lymph % (Auto) 6.1 L, Aiken % (Auto) 3.3, Eos % (Auto) 0.0, [...] applicable): CC: Dr. Yoseph Fall MD~ Signed [facility]06-08-2025 Progress note Author Dionne Porter [facility] Note Date/Time October 01, 2024 9:42p m [facility] Medical Records Department [address] [facility] [place] [address] Progress Note - Hospitalist 10/01/242140 MR#: [id number] Acct: [id number] Name: DENIA GONZALEZ Rep #:[id number] : 1955 69 From: Dionne Porter MD PCP: Dr. Yoseph Fall MD Status:AD M IN Location: [place] [address] Hospitalist Note Patient with episode tacycardia, rate 160s, went back down to 120s, changing to ipratropium only instead of duonebs, dose with her verapamil now and will assureno active EtOH usage history as prior EtOH abuse. 10/01/242141 <Electronically signed by Dionne Porter MD> Cosigner Signature (if applicable): CC: ~ Signed [facility] Work Phone: 1(533) 179-658706-08-2025 Progress note [facility] Medical Records Department [address] [facility] [place] [address] Progress Note - Hospitalist 10/01/242140 MR#: [id number] Acct: [id number] Name: DENIA GONZALEZ Rep #:[id number] : 1955 69 From: Dionne Porter MD PCP: Dr. Yoseph Fall MD Status:AD M IN Location: [place] [address] Hospitalist Note Patient with episode tacycardia, rate 160s, went back down to 120s, changing to ipratropium only instead of duonebs, dose with her verapamil now and will assureno active EtOH usage history as prior EtOH abuse. 10/01/242141 Cosigner Signature (if applicable): CC: ~ Signed [facility]06-08-2025 Progress note Author Jan Bolanos [facility] Note Date/Time October 01, 2024 10:49 am [facility] Medical Records Department [address] [place] [address] Progress Note - Hospitalist 10/01/24 1043 MR#: [id number] Acct: [id number] Name: DENIA GONZALEZ Rep #:[id number] : 1955 69 From: Jan brennan MD PCP: Dr. Yoseph Fall MD Status:AD M IN Location: [place] [address] Subjective Subjective Feels okay but not quite [...] 89.0 H, Lymph % (Auto) 6.8 L, Aiken %(Auto) 3.6, Eos % (Auto) 0.0, Baso [...] DVT: Lovenox Charges/Coding Visit Charges Inpatient E&M: 70928 Subs Hosp L2 10/01/24 9938 <Electronically signed by Jan Bolanos MD> Cosigner Signature (if applicable): CC: ~ Signed [facility] Work Phone: 1(691) 868-687706-08-2025 Progress note [facility] Medical Records Department [address] [place] [address] Progress Note - Hospitalist 10/01/24 1043 MR#: [id number] Acct: [id number] Name: DENIA GONZALEZ Rep #:[id number] : 1955 69 From: Jan brennan MD PCP: Dr. Yoseph Fall MD Status:AD M IN Location: [place] [address] Subjective Subjective Feels okay but not quite [...] 89.0 H, Lymph % (Auto) 6.8 L, Aiken %(Auto) 3.6, Eos % (Auto) 0.0, Baso [...] DVT: Lovenox Charges/Coding Visit Charges Inpatient E&M: 19399 Subs Hosp L2 10/01/24 1049 Cosigner Signature (if applicable): CC: ~ Signed [facility]06-07-2025 Progress note Author Jan Bolanos [facility] Note Date/Time September 30, 2024 1:23p m [facility] Medical Records Department [address] [place] [address] Progress Note - Hospitalist 09/30/24 1220 MR#: [id number] Acct: [id number] Name: DENIA GONZALEZ Rep #:[id number] : 1955 69 From: Jan brennan MD PCP: Dr. Yoseph Fall MD Status:AD M IN Location: [place] [address] Subjective Subjective No issues overnight, she still [...] 88.1 H, Lymph % (Auto) 8.0 L, Aiken %(Auto) 3.5, Eos % (Auto) 0.0, Baso [...] DVT: Lovenox Charges/Coding Visit Charges Inpatient E&M: 30651 Subs Hosp L2 09/30/24 1323 <Electronically signed by Jan Bolanos MD> Cosigner Signature (if applicable): CC: ~ Signed [facility] Work Phone: 1(573) 242-610306-07-2025 Progress note [facility] Medical Records Department [address] [place] [address] Progress Note - Hospitalist 09/30/24 1220 MR#: [id number] Acct: [id number] Name: DENIA GONZALEZ Rep #:[id number] : 1955 69 From: Jan brennan MD PCP: Dr. Yoseph Fall MD Status:AD M IN Location: [place] [address] Subjective Subjective No issues overnight, she still [...] 88.1 H, Lymph % (Auto) 8.0 L, Aiken %(Auto) 3.5, Eos % (Auto) 0.0, Baso % (Auto) 0.0, Absolute Neuts (auto) 6.8, Absolute Lymphs (auto) 0.61 L, Nucleated RBC % 0, Sodium 138, Potassium 4.6, [id number] L, Carbon Dioxide 33.3 H, Anion Gap [...] DVT: Lovenox Charges/Coding Visit Charges Inpatient E&M: 65458 Subs Hosp L2 09/30/24 1329 Cosigner Signature (if applicable): CC: ~ Signed [facility]06-06-2025 Evaluation note* Diagnosis Onset Date Resolution Status Admit Date Afib acute September 29, 2024 11:36am Anxiety and depression acute [facility] 2024 11:36am Aortic valve stenosis acute Sep 11:36am Tachycardia acute September 29 11:36am COPD with acute exacerbation chronic September 29, 2024 11:36am Non-small cell lung cancer chronic September 29, 2024 11:36am [facility] Work Phone: 1(360) 763-516106-06-2025 Evaluation note* Diagnosis Onset Date Resolution Status Admit Date Anxiety and depression acute [facility] 2024 11:36am Aortic valve stenosis acute Sep 11:36am Tachycardia acute September 29 11:36am Afib chronic September 29, 2024 11:36am COPD with acute exacerbation chronic September 29, 2024 11:36am Non-small cell lung cancer chronic September 29, 2024 11:36am Aortic valve stenosis acute [place] 2024 12:58pm Afib chronic November 03 12:58pm Benign essential hypertension chroni c November 03, 2024 12:58pm [facility] Work Phone: 1(164) 532-503206-06-2025 Evaluation note* Diagnosis Onset Date Resolution Status Admit Date Anxiety and depression acute [facility] 2024 11:36am Aortic valve stenosis acute Sep [...] acute exacerbation chronic December 26, 2024 8:00pm [facility] Work Phone: [phone] Evaluation note* Diagnosis Onset Date Resolution Status Admit Date Anxiety and depression acute Ju 2024 11:36am Aortic valve stenosis acute Sep [...] acute exacerbation chronic December 26, 2024 8:00pm [facility] Work Phone: 1([phone]) 855-374206-06-2025 Evaluation note* Diagnosis Onset Date Resolution Status Admit Date Aortic valve stenosis acute Sep 11:36am Tachycardia acute September 29 11:36am Afib chronic September 29, 2024 11:36am Non-small cell lung cancer chronic September 29, 2024 11:36am Anxiety and depression inactive Ju 2024 11:36am COPD with acute exacerbation inactiv e September 29, 2024 11:36am Aortic valve stenosis acute Oct 12:58pm Afib chronic November 03 12:58pm Benign essential hypertension chroni c November 03, 2024 12:58pm Acute anemia inactive December 8:00pm Acute respiratory insufficiency inactive December 26 8:00pm Anxiety inactive December 26, 2024 8:00pm Anxiety and depression inactive Se ptember 2024 8:00pm COPD with acute exacerbation inactiv e December 26, 2024 8:00pm Palliative care encounter inactive December 26, 2024 8:00pm Respiratory insufficiency inactive December 26, 2024 8:00pm [facility] Work Phone: 1(611) 664-280606-06-2025 Evaluation note* Diagnosis Onset Date Resolution Status Admit Date Aortic valve stenosis acute Kevin e 2024 11:36am Tachycardia acute September 29 11:36am Afib chronic September 29, 2024 11:36am Non-small cell lung cancer chronic September 29, 2024 11:36am Anxiety and depression inactive Ju 2024 11:36am COPD with acute exacerbation inactiv e September 29, 2024 11:36am Aortic valve stenosis acute [place] 2024 12:58pm Afib chronic November 03 12:58pm Benign essential hypertension chroni c November 03, 2024 12:58pm Acute anemia inactive December 8:00pm Acute respiratory insufficiency inactive December 26 8:00pm Anxiety inactive December 26, 2024 8:00pm Anxiety and depression inactive Se ptember 2024 8:00pm COPD with acute exacerbation inactiv e December 26, 2024 8:00pm Palliative care encounter inactive December 26, 2024 8:00pm Respiratory insufficiency inactive December 26, 2024 8:00pm Acute respiratory failure acute January 25, 2025 10:04am Anticoagulated on apixaban acute January 25, 2025 10:04am Aortic valve stenosis acute Oct mitzy 2024 10:04am Pneumonia acute January 25 10:04am Tachycardia acute January 25, 2025 10:04am Chronic anemia chronic January 10:04am [facility] Work Phone: [phone] Evaluation note* Diagnosis Onset Date Resolution Status Admit Date Anxiety and depression acute Ju 2024 11:36am Aortic valve stenosis acute Kevin e 2024 11:36am Tachycardia acute September 29 11:36am Afib chronic September 29, 2024 11:36am Non-small cell lung cancer chronic September 29, 2024 11:36am COPD with acute exacerbation inactiv e September 29, 2024 11:36am Aortic valve stenosis acute [place] 2024 12:58pm Afib chronic November 03 12:58pm Benign essential hypertension chroni c November 03, 2024 12:58pm Anxiety and depression acute Se ptember 2024 8:00pm Acute anemia inactive December 8:00pm Acute respiratory insufficiency inactive December 26, 8:00pm Anxiety inactive December 26, 2024 8:00pm COPD with acute exacerbation inactiv e December 26, 2024 8:00pm Palliative care encounter inactive December 26, 2024 8:00pm Respiratory insufficiency inactive December 26, 2024 8:00pm Acute exacerbation of chroni c obstructive pulmonary disease acute Oc tob2024 10:04am Acute respiratory failure acute January 25, 2025 10:04am Anticoagulated on apixaban acute January 25, 2025 10:04am Aortic valve stenosis acute Jan mitzy2024 10:04am Multifocal pneumonia acute Octo 2024 10:04am Pneumonia acute January 25, 025 10:04am Tachycardia acute January 25, 2025 10:04am Afib chronic January 25 025 10:04am Chronic anemia chronic January 10:04am [facility] Work Phone: 1(860) 972-332406-06-2025 Discharge summary Author Riley Jeff [facility] Note Date/Time September 29, 2024 4:33a [facility] Medical Records Department [address] [place] [address] Emergency Department Summary 09/29/24 MR#: [id number] Acct: [id number] Name: DENIA GONZALEZ Rep #:[id number] : 1955 69 From: Riley Jeff DO [...] Secondary to that she presents for evaluation [facility] Medical History RLS (restless legs syndrome) [...] 78.5 H Lymph % (Auto) 13.2 L Aiken % (Auto) 6.9 Eos % (Auto) 0.7 [...] of an acute cardiopulmonary abnormality. Reading Location: [facility] Chest x-ray as interpreted by the emergency medicine physician reveals no acute infiltrate pneumothorax or pleural effusion Management Discussion w/another healthcare provider: Hospitalist Discharge Plan Dx/Rx/DC Orders Clinical Impression: COPD with acute exacerbation, Benign essential hypertension, Anxiety and depression Disposition Disposition: [facility] What to do if you have Problems For any increased pain, shortness of breath, bleeding, nausea or vomiting, chestpain, or any unexpected problems, contact your Primary Care Provider. Call [facility] ([phone]) or report to the closest Emergency Room. Call 911 if necessary. 09/29/24 0433 <Electronically signed by Riley Jeff DO> Cosigner Signature (if applicable): CC: Dr. Yoseph Fall MD ~ Signed [facility] Work Phone: 1(101) 407-555306-06-2025 History and physical note Author Dionne Porter [facility] Note Date/Time September 29, 2024 4:32a m [facility] Medical Records Department [address] [place] [address] H&P Exam - Hospitalist 09/29/24 0403 MR#: [id number] Acct: [id number] Name: DENIA GONZALEZ Rep #:[id number] : 1955 69 From: Dionne Porter MD [...] allergic rhinitis, HTN who presents to the [facility] ED on 09/29/2024 with history of [...] 78.5 H, Lymph % (Auto) 13.2 L, Aiken % (Auto) 6.9, Eos % (Auto) 0.7, [...] of an acute cardiopulmonary abnormality. Reading Location: [id number] Assessment & Plan Assessment/Plan (1) COPD with acute exacerbation: PLAN: Plan The patient is a 69 y/o F w/ PMHx: GERD, RLS, Anxiety and Depression, Former tobacco use, Former EtOH Abuse, Hx Non-small cell lung cancer status post right lung lobectomy remotely 2003, COPD/Asthma with Chronic Hypoxic Respiratory Failure with allergic rhinitis, HTN who presents to the [facility] ED on 09/29/2024 with history of [...] Code status. Charges/Coding Visit Charges Inpatient E&M: 34267 Init Hosp L3 09/29/24 0432 <Electronically signed by Dionne Porter MD> Cosigner Signature (if applicable): CC: Dr. Dionne Porter MD; Dr. Yoseph Fall MD~ Signed [facility] Work Phone: 1(418) 176-772106-06-2025 Discharge summary [facility] Medical Records Department [address] [place] [address] Emergency Department Summary 09/29/24 MR#: [id number] Acct: [id number] Name: DENIA GONZALEZ Rep #:[id number] : 1955 69 From: Riley Jeff DO [...] Secondary to that she presents for evaluation [facility] Medical History RLS (restless legs syndrome) [...] 78.5 H Lymph % (Auto) 13.2 L Aiken % (Auto) 6.9 Eos % (Auto) 0.7 [...] of an acute cardiopulmonary abnormality. Reading Location: [facility] Chest x-ray as interpreted by the emergency [...] your Primary Care Provider. Call [facility] ([phone]) or report tothe closest Emergency Room. Call 911 if necessary. 09/29/24 0433 Cosigner Signature (if applicable): CC: Dr. Yoseph Fall MD ~ Signed [facility]06-06-2025 History and physical note [facility] Medical Records Department [address] [place] [address] H&P Exam - Hospitalist 09/29/24 0403 MR#: [id number] Acct: [id number] Name: DENIA GONZALEZ Rep #:[id number] : 1955 69 From: Dionne Porter MD [...] allergic rhinitis, HTN who presents to the [facility] ED on 09/29/2024 with history of [...] 78.5 H, Lymph % (Auto) 13.2 L, Aiken % (Auto) 6.9, Eos % (Auto) 0.7, [...] of an acute cardiopulmonary abnormality. Reading Location: [id number] Assessment & Plan Assessment/Plan (1) COPD with acute exacerbation: PLAN: Plan The patient is a 69 y/o F w/ PMHx: GERD, RLS, Anxiety and Depression, Former tobacco use, Former EtOH Abuse, Hx Non-small cell lung cancer status post right lung lobectomy remotely 2003, COPD/Asthma with Chronic Hypoxic Respiratory Failure with allergic rhinitis, HTN who presents to the [facility] ED on 09/29/2024 with history of [...] Code status. Charges/Coding Visit Charges Inpatient E&M: 26555 Init Hosp L3 09/29/24 0432 Cosigner Signature (if applicable): CC: Dr. Dionne Porter MD; Dr. Yoseph Fall MD~ Signed [facility]06-06-2025 Radiology Diagnostic study note [facility] Imaging Services [address] [place] [address] Chest PA and Lateral MR#: [id number] Acct: [id number] Name: DENIA GONZALEZ Rep #: [id number] : 1955 F 69 From: Yaquelin Lindquist MD PCP: Dr. Yoseph Fall MD Status: RE G ER Study:Chest PA and Lateral Date of Exam: 09/29/24 Exam# [id number] Ordering Dr: Silvia Jeff DO PROCEDURE: CHEST [...] an acute cardiopulmonary abnormality. Reading Location: [facility] CC: Dr. Yoseph Fall MD; Riley Jeff DO ~ Regulatory Intern: Signed [facility]06-05-2025 Telephone encounter Note* Telephone Encounter - Yoseph Fall MD - 09/28/2024 4:57 PM EDT OK to refill as ordered Yoseph Fall MD [facility]06-05-2025 Miscellaneous Notes* Telephone Encounter - Yoseph [...] 28, 2024 4:34 PM [facility] Telephone encounter Note * Telephone Encounter [...] Bliss RN September 28, 2024 4:34 PM [facility]2025 Telephone encounter Note* Telephone Encounter - [...] 5 to 15 minutes Nelson Robert APRN.CNP [facility]2025 Miscellaneous Notes* Telephone Encounter - Nelson [...] 29, 2024 10:54 AM [facility] Telephone encounter Note * Telephone Encounter [...] Elma Sarah August 29, 2024 10:54 AM [facility]04-22-2025 Telephone encounter Note* Telephone Encounter - Nelson Robert APRN.CNP - 08/15/2024 11:32 AM EDT Approved. PDMP website checked and validated. All prescriptions have been APPROPRIATELY filled. No suspiciousactivity was identified. 08/15/2024 by Nelson Rboert APRN.CNP The following approved medication requests have been transmitted electronically. Requested Prescriptions Signed Prescriptions Disp Refills HYDROcodone-acetaminophen (NORCO) 5-325 mg per tablet 30 tablet 0 Sig: Take 1 tablet by mouth two times a day as needed for pain for up to 30 days. Authorizing Provider: NELSON ROBERT APRN.TOE [employer]ING [employer]ER [facility]04-22-2025 Miscellaneous Notes* Telephone Encounter - Nelson [...] 15, 2024 10:53 AM documented [facility]04-[facility] Telephone encounter Note * Telephone Encounter [...] Hennessy LPN August 15, 2024 10:53 AM [facility]03-31-2025 Telephone encounter Note* Telephone Encounter - Magalie Anguiano RN - 07/24/2024 6:11 PM EDT Pt significant other Mike called and is notified of providers results and instructions. He voices understanding. Magalie Anguiano RN [facility]03-31-2025 Miscellaneous Notes* Telephone Encounter - Magalie Anguiano RN - 07/24/2024 6:11 PM EDT Pt significant other Mike called and is notified of providers results and instructions. He voices understanding. Magalie Anguiano RN * Telephone Encounter - Yoseph Fall MD - 07/24/2024 5:08 PM EDT She may try taking 40 mg of prednisone (she has 10 mg tablets at home) for 3 days and see if this clears up the rash; sounds like an allergic reaction. Yoseph Fall MD * Telephone Encounter - Magalie Anguiano RN - 07/24/2024 4:23 PM EDT [...] rash. He states the Pt has a net wpf developer that come in tomorrow and she could try and help the Pt with a VV. He states she usually does phone visits. I told him the provider may need to see the rash. Pt was wanting the provider to order an antibiotic for it. Mike states he knows a cream could probably be called in. Please call and advise Pt. documented [facility]03-[facility] Telephone encounter Note * Telephone Encounter - Yoseph Fall MD - 07/24/2024 5:08 PM EDT She may try taking 40 mg of prednisone (she has 10 mg tablets at home) for 3 days and see if this clears up the rash; sounds like an allergic reaction. Yoseph Fall MD [facility]03-31-2025 Telephone encounter Note* Telephone Encounter - Magalie Anguiano RN - 07/24/2024 4:23 PM EDT [...] rash. He states the Pt has a net wpf developer that come in tomorrow and she could try and help the Pt with a VV. He states she usually does phone visits. I told him the provider may need to see the rash. Pt was wanting the provider to order an antibiotic for it. Mike states he knows a cream could probably be called in. Please call and advise Pt. [facility]03-19-2025 Telephone encounter Note* Telephone Encounter - Sukhi Marrero RN - 07/12/2024 2:47 PM EDT Jenni with [facility] calls to request chart notes to support patients need for continued oxygen. Most recent visits have all been distant health. Jenni requests most recent visit be faxed. Faxed to [phone] per request. Sukhi Marrero RN [facility]03-19-2025 Miscellaneous Notes* Telephone Encounter - Sukhi Marrero RN - 07/12/2024 2:47 PM EDT Jenni with [facility] calls to request chart notes to support patients need for continued oxygen. Most recent visits have all been distant health. Jenni requests most recent visit be faxed. Faxed to [phone] per request. Sukhi Marrero RN documented in this encounterOhio [facility]03-13-2025 History of Present illness Narrative* Yoseph [...] visit. Either the patient or their legal insurance sales representative has been informed of the risks and benefits of -- and alternatives to -- treatment through a remote evaluation andconsents to proceed with the evaluation remotely. Completing tele-health visit for routine follow up. Pt reports that she has a lady coming from [facility] tomorrow and asking what shots she [...] at 2.5-3 L. Pain: Chronic back; taking Morrow 5-325 mg 1 pill BID as needed. [...] (HCC) 04/26/2003 Lung cancer OR (myocardial infarction) ([facility]) 10-10 taken to [facility] "heart stopped" Obstructive chronic bronchitis with exacerbation ([facility]) COPD Other abnormal Papanicolaou smear of cervix [...] as directed. Dx: COPD J44.9 Nebulizer Accessories [facility] Mask and supplies as needed PULSE OXIMETER [facility] Use as directed to check oxygen saturation level ammonium lactate (AMLACTIN) 12 % lotion Apply 1 application to affected area as needed for Dry Skin. losartan (COZAAR) 50 mg tablet Take 0.5 tablets by mouth once daily. OXYGEN, HOME THERAPY, 2.5 L/min by Nasal Cannula route continuous. Use as directred Disposable Gloves (DISPOSABLE LATEX-FREE GLOVES) [facility] 1 Box once every month. ICD 10: [...] Nothing since 03/2012. Drug use: No EXAM: [facility] 02/27/2005 Phone visit Health Maintenance List BP [...] Vaccine(1) due on 12/26/2023 Covid-19 Vaccine( - 2023- season) due on 12/26/2023 Colorectal Cancer Screening [...] Past Histories independently gathered by the clinical director of sales support and the remaining scribed note accurately describes my personal service to the patient. 11-20 minutes of time spent on phone call Yoseph Fall MD The documentation for this note was completed by Martha Baca MA acting as scribe for Yoseph Fall MD. July 06, 2024 2:02 PM. Martha Baca MA documented in this encounterOhio [facility] Hospital03-13-2025 NoteHNO ID: [id number] Author: YOSEPH FALL MD Service: ? Author [...] visit. Either the patient or their legal insurance sales representative has been informed of the risks and benefits of -- and alternatives to -- treatment through a remote evaluation and consents to proceed with the evaluation remotely. Completing tele-health visit for routine follow up. Pt reports that she has a lady coming from [facility] tomorrow and asking what shots she [...] at 2.5-3 L. Pain: Chronic back; taking Morrow 5-325 mg 1 pill BID as needed. [...] (HCC) 04/26/2003 Lung cancer OR (myocardial infarction) ([facility]) 10-10 taken to [facility] "heart stopped" Obstructive chronic bronchitis with exacerbation ([facility]) COPD Other abnormal Papanicolaou smear of cervix [...] HISTORY Procedure Laterality Date CONIZATION CERVIX W/WO [facility] RPR ELTRD EXC 2003 Dr. Danis BRYSON [...] muscle spasm. montelukast (SINGULAIR) (more content not included)...[facility] 06-22-2024 Telephone encounter Note* Telephone Encounter [...] Watson LPN June 22, 2024 10:53 AM [facility]02-27-2025 Miscellaneous Notes* Telephone Encounter - Brynn [...] 22, 2024 10:53 AM documented in this encounterOhio Valley Hospital02-24-2025 Telephone encounter Note * Telephone Encounter - Yoseph Fall MD - 06/19/2024 12:48 PM EST OK to refill as ordered Yoseph Fall MD [facility]02-24-2025 Miscellaneous Notes* Telephone Encounter - Yoseph Fall MD - 06/19/2024 12:48 PM EST OK to refill as ordered Yoseph Fall MD * Telephone Encounter - Mikayla Mora LPN - 06/19/2024 9:31 AM EST [...] 19, 2024 9:31 AM documented in this encounterOhio [facility] Hospital02-24-2025 Telephone encounter Note * Telephone Encounter - Mikayla Mora LPN - 06/19/2024 9:31 AM EST [...] Mora LPN June 19, 2024 9:31 AM [facility]02-17-2025 Telephone encounter Note* Telephone Encounter - Martha Baca MA - 06/12/2024 3:39 PM EST Form completed and faxed back to information below. Martha Baca MA [facility]02-17-2025 Miscellaneous Notes* Telephone Encounter - Martha Baca MA - 06/12/2024 3:39 PM EST Form completed and faxed back to information below. Martha Baca MA * Telephone Encounter - Martha Baca MA - 06/12/2024 12:44 PM EST Type of form: Medical Necessity for incontinence supplies. Form received via fax When form is completed, Fax form to [phone] Form has been forwarded to Physician Desk: Dr. Eufemia Baca MA documented in this encounterOhio Valley Hospital02-17-2025 Telephone encounter Note * Telephone Encounter - Martha Baca MA - 06/12/2024 12:44 PM EST Type of form: Medical Necessity for incontinence supplies. Form received via fax When form is completed, Fax form to [phone] Form has been forwarded to Physician Desk: Dr. Eufemia Baca MA [facility]02-07-2025 Telephone encounter Note* Telephone Encounter - Ban VillafanaLAURIE - 06/02/2024 8:11 AM EST Images from the original note were not included. Electronic PA rec'd and completed for cyclobenzaprine. This was denied. Note from payer: CaseId:[id number];Status:Denied;Review Type:Prior Auth;Appeal Information: Attention:ATTN: MEDICARE CLINICAL APPEALS [email or web address] [address] [address],[place], [place],[address] WebAddress:[email or web address]; Important - Please read the below note [...] for a decision on the appeal.; Payer: [email or web address] HOME DELIVERY [phone] Electronic appeal: Supported View History Notes Time [...] to its destination. To be filled at: [facility] [address] [place] [address] [address] - [phone] [facility]02-07-2025 Miscellaneous Notes* Telephone Encounter - Ban Villafana LPN - 06/02/2024 8:11 AM EST Images from the original note were not included. Electronic PA rec'd and completed for cyclobenzaprine. This was denied. Note from payer: CaseId:[id number];Status:Denied;Review Type:Prior Auth;Appeal Information: Attention:ATTN: MEDICARE CLINICAL APPEALS [email or web address] [address] [address],[place], [place],[address] WebAddress:[email or web address]; Important - Please read the below note [...] for a decision on the appeal.; Payer: [email or web address] HOME DELIVERY [phone] Electronic appeal: Supported View History Notes Time [...] to its destination. To be filled at: [facility] [address] [place] [address] [address] - [phone] documented in this encounterOhio Valley Hospital02-06-2025 Telephone encounter Note * Telephone Encounter - Yoseph Fall MD - 06/01/2024 3:18 PM EST OK to refill as ordered Yoseph Fall MD [facility]02-06-2025 Miscellaneous Notes* Telephone Encounter - Yoseph [...] 01, 2024 2:45 PM documented in this encounterOhio Valley Hospital02-06-2025 Telephone encounter Note * Telephone Encounter [...] Gurrola RN June 01, 2024 2:45 PM [facility]01-21-2025 Telephone encounter Note* Telephone Encounter - Yoseph Fall MD - 05/16/2024 10:33 AM EST OK to refill as ordered Yoseph Fall MD [facility]01-21-2025 Miscellaneous Notes* Telephone Encounter - Yoseph [...] 16, 2024 10:31 AM documented in this encounterOhio Valley Hospital01-21-2025 Telephone encounter Note * Telephone Encounter [...] Marrero RN May 16, 2024 10:31 AM [facility]01-21-2025 NotePatient Outreach (FAMPWS) DENIA GONZALEZ ([id number]) 1955 F Date Time Provider Department 05/16/24 YOSEPH FALL FAMPWS During your visit today, we recorded the following information about you: Allergies As of Date: 05/16/2024 (No Known Allergies) Date Reviewed: 04/07/2024 Reviewed by: Martha Baca MA - Fully Assessed Visit Diagnosis:Encounter for screening mammogram for breast cancer [Z12.31] Order(s):MICKIE SCREENING W RASHAUN [[id number]] Order #: [id number] FUTURE Prescriptions as of 06/16/2024 - cyclobenzaprine [...] directed. Dx: COPD J44.9 - Nebulizer Accessories [facility] Mask and supplies as needed - PULSE OXIMETER [facility] Use as directed to check oxygen saturation level - ammonium lactate (AMLACTIN) 12 % lotion Apply 1 application to affected area as needed for Dry Skin. - losartan (COZAAR) 50 mg tablet Take 0.5 tablets by mouth once daily. - OXYGEN, HOME THERAPY, 2.5 L/min by Nasal Cannula route continuous. Use as directred - Disposable Gloves (DISPOSABLE LATEX-FREE GLOVES) [facility] 1 Box once every month. ICD 10: [...] chronic bronchitis with exacerbatio* Encounter Status:Closed by Medialive, TrailerpopUSER on 06/16/24[facility] 04-10[facility] Telephone encounter Note* Telephone Encounter - Nelson Robert APRN.CNP - 04/10/2024 12:37 PM EST The following approved medication requests have been transmitted electronically. Requested Prescriptions Pending Prescriptions Disp Refills tiotropium (SPIRIVA) 18 mcg inhalation capsule 30 capsule 11 Sig: Inhale 1 capsule as instructed once daily. Nelson Robert APRN.CNP [facility]12-16-2024 Miscellaneous Notes* Telephone Encounter - Nelson [...] 10, 2024 12:21 PM documented in this encounterOhio Valley Hospital12-16-2024 Telephone encounter Note * Telephone Encounter [...] Bliss RN April 10, 2024 12:21 PM [facility]12-13-2024 History of Present illness Narrative* Yoseph [...] visit. Either the patient or their legal insurance sales representative has been informed of the risks and benefits of -- and alternatives to -- treatment through a remote evaluation andconsents to proceed with the evaluation remotely. Tobacco - detention use of cigarettes, but is working very hard on cutting down. Notes increased usage due to stress. Dog recently , grand daughter in hospital. GI/Uro - Denies any stomach, bowel or urinary issues. GERD - Symptoms stable with use of Prilosec 20 mg once daily. Pain - Chronic back pain that is currently being treated with Morrow 5-325 mg 1 tab po bid prn. [...] beagle of 14 years.Also notes granddaughter in [facility]. Trying to learn to live her anxiety [...] - Breathing overall stable but states it's "so-so". Using Prednisone 10 mg 1.5 tab once [...] neoplasm of bronchus and lung, unspecified site ([facility]) 04/26/2003 Lung cancer OR (myocardial infarction) ([facility]) 10-10 taken to [facility] "heart stopped" Obstructive chronic bronchitis with exacerbation ([facility]) COPD Other abnormal Papanicolaou smear of cervix [...] as directed. Dx: COPD J44.9 Nebulizer Accessories [facility] Mask and supplies as needed PULSE OXIMETER [facility] Use as directed to check oxygen saturation level ammonium lactate (AMLACTIN) 12 % lotion Apply 1 application to affected area as needed for Dry Skin. losartan (COZAAR) 50 mg tablet Take 0.5 tablets by mouth once daily. OXYGEN, HOME THERAPY, 2.5 L/min by Nasal Cannula route continuous. Use as directred Disposable Gloves (DISPOSABLE LATEX-FREE GLOVES) [facility] 1 Box once every month. ICD 10: [...] Vaccine(1) due on 12/26/2023 Covid-19 Vaccine( - 2023- season) due on 12/26/2023 Colorectal Cancer Screening [...] Past Histories independently gathered by the clinical director of sales support and the remaining scribed note accurately describes my personal service to the patient. 11-20 minutes of time spent on phone call Yoseph Fall MD The documentation for this note was completed by Martha Baca MA acting as scribe for Yoseph Fall MD. April 07, 2024 8:48 AM. Martha Baca MA documented in this encounterOhio Valley Hospital12-13-2024 NoteHNO ID: [id number] Author: YOSEPH FALL MD Service: ? Author [...] visit. Either the patient or their legal insurance sales representative has been informed of the risks and benefits of -- and alternatives to -- treatment through a remote evaluation and consents to proceed with the evaluation remotely. 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 Notes increased usage due to stress. Dog recently , grand daughter in hospital. GI/Uro - Denies any stomach, bowel or urinary issues. GERD - Symptoms stable with use of Prilosec 20 mg once daily. Pain - Chronic back pain that is currently being treated with Morrow 5-325 mg 1 tab po bid prn. [...] of 14 years. Also notes granddaughter in [facility]. Trying to learn to live her anxiety [...] - Breathing overall stable but states it's "so-so". Using Prednisone 10 mg 1.5 tab once [...] OR (myocardial infarction) (HCC) 10-10 taken to [facility] "heart stopped" Obstructive chronic bronchitis with exacerbation (HCC) COPD [...] File Prior to Visit (more content not included)...[facility]11-27-2024 Telephone encounter Note* Telephone Encounter - Vickie Niño LPN - 03/22/2024 9:03 AM EST left message to notify patient that med has been sent into pharmacy. Vickie Niño LPN [facility]11-27-2024 Miscellaneous Notes* Telephone Encounter - Vickie [...] advise, Judy Bliss RN documented in this encounterOhio Valley Hospital11-27-2024 Telephone encounter Note * Telephone Encounter - Iman Person APRN.CNP - 03/22/2024 8:51 AM EST The following approved medication requests have been transmitted electronically. Requested Prescriptions Signed Prescriptions Disp Refills amoxicillin (AMOXIL) 875 mg tablet 20 tablet 0 Sig: Take 1 tablet by mouth two times a day for 10 days. Authorizing Provider: IMAN PERSON APRN.CNP [facility]11-26-2024 Telephone encounter Note* Telephone Encounter - [...] Please review and advise, Judy Bliss RN [facility]11-25-2024 Telephone encounter Note* Telephone Encounter - Nelson [...] 30 days. Authorizing Provider: NELSON ROBERT APRN.CNP [facility]11-25-2024 Miscellaneous Notes* Telephone Encounter - Nelson Robert [...] 20, 2024 12:49 PM documented in this encounterOhio Valley Hospital11-25-2024 Telephone encounter Note * Telephone Encounter [...] Marrero RN March 20, 2024 12:49 PM [facility]11-08-2024 Telephone encounter Note* Telephone Encounter - Nelson Robert APRN.CNP - 03/03/2024 11:53 AM EST The following approved medication requests have been transmitted electronically. Requested Prescriptions Pending Prescriptions Disp Refills predniSONE (DELTASONE) 10 mg tablet 30 tablet 5 Sig: Take 1.5 tablets by mouth every other day. Nelson Robert APRN.CNP [facility]11-08-2024 Miscellaneous Notes* Telephone Encounter - Nelson [...] office visit in the department: 11/29/2023- [facility] Does the patient have a future office visit with this provider/department: No Visit date not found Requested Prescriptions Pending Prescriptions Disp Refills predniSONE (DELTASONE) 10 mg tablet 30 tablet 5 Sig: Take 1.5 tablets by mouth every other day. Judy Bliss RN March 03, 2024 11:23 AM documented in this encounterOhio Valley Hospital11-08-2024 Telephone encounter Note * Telephone Encounter [...] office visit in the department: 11/29/2023- [facility] Does the patient have a future office visit with this provider/department: No Visit date not found Requested Prescriptions Pending Prescriptions Disp Refills predniSONE (DELTASONE) 10 mg tablet 30 tablet 5 Sig: Take 1.5 tablets by mouth every other day. Judy Bliss RN March 03, 2024 11:23 AM [facility]10-21-2024 Telephone encounter Note* Telephone Encounter - [...] 15 minutes Authorizing Provider: NELSON ROBERT APRN.CNP [facility]10-21-2024 Miscellaneous Notes* Telephone Encounter - Nelson [...] 14, 2024 11:28 AM documented in this encounterOhio Valley Hospital10-21-2024 Telephone encounter Note * Telephone Encounter [...] Watson LPN February 14, 2024 11:28 AM [facility]10-11-2024 Telephone encounter Note* Telephone Encounter - Lauren Duarte MA - 02/04/2024 8:25 AM EDT Pt informed, verbalized understanding. Lauren Duarte MA [facility]10-11-2024 Miscellaneous Notes* Telephone Encounter - Lauren Duarte MA - 02/04/2024 8:25 AM EDT Pt informed, verbalized understanding. Lauren Duarte MA * Telephone Encounter - Yoseph Fall MD - 02/04/2024 8:16 AM EDT OK for amoxicillin as ordered. If she does not improve over the weekend she would need to be seen. Yoseph Flal MD * Telephone Encounter - Judy Bliss [...] advise, Judy Bliss RN documented in this encounterOhio Valley Hospital10-11-2024 Telephone encounter Note * Telephone Encounter - Yoseph Fall MD - 02/04/2024 8:16 AM EDT OK for amoxicillin as ordered. If she does not improve over the weekend she would need to be seen. Yoseph Fall MD [facility]10-10-2024 Telephone encounter Note* Telephone Encounter - [...] Please review and advise, Judy Bliss RN [facility]10-10-2024 Telephone encounter Note* Telephone Encounter - [...] EC for evaluation. Patient and daughter agreeable. [facility]10-10-2024 Miscellaneous Notes* Telephone Encounter - Martínez [...] Patient and daughter agreeable. documented in this encounterOhio Valley Hospital09-24-2024 Telephone encounter Note * Telephone Encounter [...] 30 days. Authorizing Provider: NELSON ROBERT APRN.CNP [facility]09-24-2024 Miscellaneous Notes* Telephone Encounter - Nelson [...] 18, 2024 9:25 AM documented in this encounterOhio Valley Hospital09-24-2024 Telephone encounter Note * Telephone Encounter [...] Marrero RN January 18, 2024 9:25 AM [facility]08-30-2024 Telephone encounter Note* Telephone Encounter - Yoseph Fall MD - 12/24/2023 9:48 AM EDT OK to refill as ordered Yoseph Fall MD [facility]08-30-2024 Miscellaneous Notes* Telephone Encounter - Yoseph [...] 24, 2023 9:26 AM documented in this encounterOhio Valley Hospital08-30-2024 Telephone encounter Note * Telephone Encounter [...] Giovanna Carrillo December 24, 2023 9:26 AM [facility] Work Phone: [phone]) 673-798408-05-2024 History of Present illness Narrative* Yoseph Fall [...] visit. Either the patient or their legal insurance sales representative has been informed of the [...] Pain: Chronic pain; is being weaned off Morrow 5-325 mg down to#32/month, taking 1 pill BID prn. Also uses Flexeril 10 mg BID prn. Worried pain will not be controlled on anything less than 2 norco perday. At times pain gets bad, having to use Tylenol. Wishes her Morrow would be increased. GERRY/Depression: Stable, still has [...] OR (myocardial infarction) (HCC) 10-10 taken to [facility] "heart stopped" Obstructive chronic bronchitis with exacerbation (HCC) COPD [...] as directed. Dx: COPD J44.9 Nebulizer Accessories [facility] Mask and supplies as needed PULSE OXIMETER [facility] Use as directed to check oxygen saturation level ammonium lactate (AMLACTIN) 12 % lotion Apply 1 application to affected area as needed for Dry Skin. losartan (COZAAR) 50 mg tablet Take 0.5 tablets by mouth once daily. OXYGEN, HOME THERAPY, 2.5 L/min by Nasal Cannula route continuous. Use as directred Disposable Gloves (DISPOSABLE LATEX-FREE GLOVES) [facility] 1 Box once every month. ICD 10: [...] call Yoseph Fall MD documented in this encounterOhio Valley Hospital07-23-2024 Telephone encounter Note * Telephone Encounter - Yoseph Fall MD - 11/16/2023 1:32 PM EDT OK to refill as ordered Yoseph Fall MD [facility]07-23-2024 Miscellaneous Notes* Telephone Encounter - Yoseph [...] 16, 2023 12:02 PM documented in this encounterOhio Valley Hospital07-23-2024 Telephone encounter Note * Telephone Encounter [...] Marrero RN November 16, 2023 12:02 PM [facility]07-15-2024 Telephone encounter Note* Telephone Encounter - [...] drug. This restriction has been approved by [facility]. This restriction only applies to patients [...] this decision on the coverage criteria for: [address] [place] Standard MEDD Prior Authorization Policy - HIGH RISK MEDICATIONS - CYCLOBENZAPRINE [facility]07-15-2024 Miscellaneous Notes* Telephone Encounter - Ban [...] drug. This restriction has been approved by [facility]. This restriction only applies to patients [...] this decision on the coverage criteria for: [address] [place] Standard MEDD Prior Authorization Policy - HIGH RISK MEDICATIONS - CYCLOBENZAPRINE documented in this encounterOhio Valley Hospital07-12-2024 Telephone encounter Note * Telephone Encounter - Iman Person APRN.CNP - 11/05/2023 12:07 PM EDT The following approved medication requests have been transmitted electronically. Requested Prescriptions Pending Prescriptions Disp Refills cyclobenzaprine (FLEXERIL) 10 mg tablet 60 tablet 0 Sig: Take 1 tablet by mouth two times a day as needed for muscle spasm. Iman Person APRN.[place] [facility]07-12-2024 Miscellaneous Notes* Telephone Encounter - Iman Person APRN.CNP - 11/05/2023 12:07 PM EDT The following approved medication requests have been transmitted electronically. Requested Prescriptions Pending Prescriptions Disp Refills cyclobenzaprine (FLEXERIL) 10 mg tablet 60 tablet 0 Sig: Take 1 tablet by mouth two times a day as needed for muscle spasm. Iman Person APRN.CNP * Telephone Encounter - Mikayla Mora LPN - 11/05/2023 11:50 AM EDT Pt calling to get a refill on medication below. Pt never started Tizanadine. Pt takes medication below and this helps with muscle spasms. Please let pt know when this has been sentto the pharmacy. Mikayla Mroa LPN The patient has been identified by [...] 05, 2023 11:51 AM documented in this encounterOhio Valley Hospital07-12-2024 Telephone encounter Note * Telephone Encounter - Mikayla Mora LPN - 11/05/2023 11:50 AM EDT [...] Mora LPN November 05, 2023 11:51 AM [facility]06-28-20[facility] Telephone encounter Note* Telephone Encounter - Brynn Watson LPN - 10/22/2023 2:21 PM EDT Phoned patient and went over notes from Dr Fall with understanding. Aware rx sent to pharmacy. [facility]-28[facility] Miscellaneous Notes* Telephone Encounter - Brynn [...] Notify pt with providers decision. [facility]. Naima Haines MA * Telephone Encounter [...] - Emergency Medicine * Telephone Encounter - Shira Velez - 10/22/2023 10:18 AM EDT Pt has requested that an antibiotic is called in for her. States she was just seen in the EmergencyRoom last week, however; is still having a discolored mucus with cough. Please advise. documented in this encounterOhio Valley Hospital06-28-2024 Telephone encounter Note * Telephone Encounter - Yoseph Fall MD - 10/22/2023 2:14 PM EDT OK for another Zpak as ordered Yoseph Fall MD [facility]-28-2024 Telephone encounter Note* Telephone Encounter - Naima Haines MA - 10/22/2023 1:09 PM EDT No fevers. She is coughing a little bit. The congestion has mostly cleared. She did get some improvement with the zpak she was given but doesn't feel that the infection is completely resolved. Please advise. Notify pt with providers decision. [facility]. Naima Haines MA [facility]06-28-2024 Telephone encounter Note* Telephone Encounter - Naima Haines MA - 10/22/2023 11:54 AM EDT Tried to reach pt, line picks up, can hear back ground noise but no one says anything. Will try again later. Naima Haines MA [facility]06-28-2024 Telephone encounter Note* Telephone Encounter - Yoseph Fall MD - 10/22/2023 11:47 AM EDT Did she get any better with the Zpak she was given in the ER? If so I would consider refill of that. If it did not help would use a different antibiotic. Yoseph Fall MD [facility]06-28-2024 Telephone encounter Note* Telephone Encounter - Naima Haines MA - 10/22/2023 10:26 AM EDT ER report attached. Scan on 10/18/2023 6:02 AM by Provider, MARY Howe: Consultation - Emergency Medicine [facility]06-28-2024 Telephone encounter Note* Telephone Encounter - Shira Velez - 10/22/2023 10:18 AM EDT Pt has requested that an antibiotic is called in for her. States she was just seen in the EmergencyRoom last week, however; is still having a discolored mucus with cough. Please advise. [facility] Miscellaneous Notes* Telephone Encounter - Yoseph [...] 18, 2023 9:49 AM documented in this encounterOhio Valley Hospital06-24-2024 Telephone encounter Note * Telephone Encounter - Yoseph Fall MD - 10/18/2023 12:10 PM EDT OK to refill as ordered Yoseph Fall MD [facility] Telephone encounter Note* Telephone Encounter - [...] Louie RN October 18, 2023 9:49 AM [facility]-07-2024 Telephone encounter Note* Telephone Encounter - Naima Haines MA - 10/01/2023 1:48 PM EDT The following approved medication requests have been transmitted electronically. Requested Prescriptions Signed Prescriptions Disp Refills tiZANidine (ZANAFLEX) 4 mg tablet 90 tablet 5 Sig: Take 1 tablet by mouth every 8 hours as needed (muscle spasms). Authorizing Provider: YOSEPH FALL MA [facility]06-07-2024 Miscellaneous Notes* Telephone Encounter - Naima [...] Marrero RN - 10/01/2023 11:53 AM EDT [facility] calls to ask if provider would send in a different prescription than flexeril d/t having to pay for medication. Recommended contacting insurance to see what medication is covered and it was requested to just send something in as they can never get a hold of anyone at the insurance company. Pharmacy is [facility] Marrero RN documented in this encounterOhio Valley Hospital06-07-2024 Telephone encounter Note * Telephone Encounter - Yoseph Fall MD - 10/01/2023 1:29 PM EDT OK for zanaflex as ordered Yoseph Fall MD [facility]06-07-2024 Telephone encounter Note* Telephone Encounter - Sukhi Marrero RN - 10/01/2023 11:53 AM EDT [facility] calls to ask if provider would send in a different prescription than flexeril d/t having to pay for medication. Recommended contacting insurance to see what medication is covered and it was requested to just send something in as they can never get a hold of anyone at the insurance company. Pharmacy is [facility]re[facility] RN [facility]-29[facility] Telephone encounter Note* Telephone Encounter - [...] 5 to 15 minutes Nelson Robert APRN.CNP [facility]05-29-2024 Miscellaneous Notes* Telephone Encounter - Nelson [...] Thank you. Louisa Nobles. documented in this encounterOhio Valley Hospital05-29-2024 Telephone encounter Note * Telephone Encounter - Loiusa Mckay - 09/22/2023 11:07 AM EDT Patient [...] 11/23/2023 Please advise. Thank you. Louisa Nobles. [facility]05-23-2024 Telephone encounter Note* Telephone Encounter - Yoseph Fall MD - 09/16/2023 8:11 AM EDT OK to refill as ordered Yoseph Fall MD [facility]05-23-2024 Miscellaneous Notes* Telephone Encounter - Yoseph [...] Thank you. Louisa Nobles. documented in this encounterOhio Valley Hospital05-22-2024 Telephone encounter Note * Telephone Encounter - Iman Person APRN.CNP - 09/15/2023 7:09 PM EDT The following approved medication requests have been transmitted electronically. Requested Prescriptions Pending Prescriptions Disp Refills fluticasone (FLONASE) 50 mcg/actuation nasal spray 48 g 11 Sig: use 2 sprays in each nostril daily. Rinse mouth after use Iman Person APRN.CNP [facility]05-22-2024 Miscellaneous Notes* Telephone Encounter - Iman [...] you. Essie Medina RN. documented in this encounterOhio Valley Hospital05-22-2024 Telephone encounter Note * Telephone Encounter [...] 11/23/2023 Please advise. Thank you. Louisa Nobles. [facility]05-22-2024 Telephone encounter Note* Telephone Encounter - [...] Please advise. Thank you. Essie Medina RN. [facility]04-29-2024 History of Present illness Narrative* Yoseph [...] visit. Either the patient or their legal insurance sales representative has been informed of the [...] daily. Pain: uses Flexeril 10 mg daily, Morrow 5-325 mg 1 pill BID prn, taking [...] OR (myocardial infarction) (HCC) 10-10 taken to [facility] "heart stopped" Obstructive chronic bronchitis with exacerbation (HCC) COPD [...] as directed. Dx: COPD J44.9 Nebulizer Accessories [facility] Mask and supplies as needed rOPINIRole (REQUIP) 0.25 mg tablet Take 1 tablet by mouth daily at bedtime. PULSE OXIMETER [facility] Use as directed to check [...] as directred Disposable Gloves (DISPOSABLE LATEX-FREE GLOVES) [facility] 1 Box once every month. ICD 10: [...] Past Histories independently gathered by the clinical director of sales support and the remaining scribed note accurately describes my personal service to the patient. 11-20 minutes of time spent on phone call Yoseph Fall MD The documentation for this note was completed by Naima Haines MA acting as scribe for Yoseph Fall MD. August 23, 2023 2:19 PM. Naima Haines MA documented in this encounterOhio Valley Hospital04-02-2024 Miscellaneous Notes* Telephone Encounter - Yoseph [...] you. Brynn Watson LPN. documented in this encounterOhio Valley Hospital04-01-2024 History of Present illness Narrative* Yoseph [...] visit. Either the patient or their legal insurance sales representative has been informed of the [...] days. Nicorette 2 mg gum, states her Psqinucl-id-wbt was picking this up today. SUMMARY: -Pt [...] anxiety, GERD and OA who presents to [facility] ER complaining of shortness of breath, [...] increased use of her nebulizers and a Z-Alban started by her primary care physician yesterday. She admits to subjective fevers and worsening cough and wheezing that caused her to activate EMS. She denies associated chills, nausea, vomiting, leg pain, leg swelling, chest pain or hemoptysis. She admits her symptoms are similar to her previous COPD exacerbations. In the ER she was diagnosed with acute exacerbation of COPD withclinical evidence of czqup-he-amelijj hypoxic respiratory insufficiency likely due to recent [...] enlargement Borderline ECG Confirmed by Junito Madrid ([id number]), food editor MAGALIE RAMIREZ ([id number]) on 07/20/2023 1:47:04 PM Chest XR 07/20/23: [...] KB 30 S [facility] Everywhere for continuity of care. [...] call Yoseph Fall MD documented in this encounterOhio Valley Hospital04-01-2024 History of Present illness Narrative* Martha Baca MA - 07/26/2023 10:20 AM EDT TRANSITION CARE MANAGEMENT (TCM) INITIAL CONTACT Clinical Trial Assistant Outreach Provider Action/FYI: Pt reports that she's [...] anxiety, GERD and OA who presents to [facility] ER complaining of shortness of breath, [...] increased use of her nebulizers and a Z-Alban started by her primary care physician yesterday. She admits to subjective fevers and worsening cough and wheezing that caused her to activate EMS. She denies associated chills, nausea, vomiting, leg pain, leg swelling, chest pain or hemoptysis. She admits her symptoms are similar to her previous COPD exacerbations. In the ER she was diagnosed with acute exacerbation of COPD withclinical evidence of ivjub-ck-ehbqqkv hypoxic respiratory insufficiency likely due to recent [...] her the possibilityfor discharge she expressed understanding Sool of is going home and she would [...] enlargement Borderline ECG Confirmed by Junito Madrid ([id number]), food editor MAGALIE RAMIREZ ([id number]) on 07/20/2023 1:47:04 PM Chest XR 07/20/23: [...] KB 30 S Records were obtained from [facility] Everywhere for continuity of care. [...] Yes Medical records from recent hospitalization: Care Everywhere/[facility] records Martha Baca MA documented in this encounterOhio Valley Hospital03-28-2024 Discharge summary Author Jan Bolanos [facility] July 22, 2023 4:12pm Note Date/Time July 22, 2023 4:0 4pm [facility] Medical Records Department [address] [place] [address] Instructions for Home/Discharge Instructions 07/22/23 1603 MR#: [id number] Acct: [id number] Name: DENIA GONZALEZ Rep #:[id number] : 1955 68 From: Jan brennan MD [...] DO; Dr. Yoseph Fall MD ~ Signed [facility] Work Phone: 1(270) 412-539003-28-2024 Discharge summary Author Jan Bolanos [facility] July 22, 2023 4:18pm Note Date/Time July 22, 2023 4:1 7pm [facility] Medical Records Department [address] [place] [address] Discharge Summary 07/22/231611 MR#: [id number] Acct: [id number] Name: DENIA GONZALEZ Rep #:[id number] : 1955 68 From: Jan brennan MD PCP: Dr. Yoseph Fall MD Status:AD IN Location: [place] [address] Providers Date of Admission: 07/20/23 Primary Care Physician: Dr. Yoseph Fall MD Reason For Visit: ACUTE EXACERBATION OF COPD WITH SZGMA-MF-BJJBATO Diagnosis Discharge Diagnosis (1) COPD with acute [...] anxiety, GERD and OA who presents to [facility] ER complaining of shortness of breath, [...] increased use of her nebulizers and a Z-Alban started by her primary care physician yesterday. She admits to subjective fevers and worsening cough and wheezing that caused her to activate EMS. She denies associated chills, nausea, vomiting, leg pain, leg swelling, chest pain or hemoptysis. She admits her symptoms are similar to her previous COPD exacerbations. In the ER she was diagnosed with acute exacerbation of COPD with clinical evidence of qcbvz-rb-fieunbw hypoxic respiratory insufficiency likely due to recent [...] Self Care Charges/Coding Visit Charges Inpatient E&M: 93230 Disch Hosp >30min 07/22/23 1618 <Electronically signed by Jan Bolanos MD> Cosigner Signature (if applicable): CC: Dr. Yoseph Fall MD; Dr. Jan Bolanos MD~ Signed [facility] Work Phone: 1(575) 669-224303-28-2024 Progress note Author Jan [facility] July 22, 2023 11:02am Note Date/Time July 22, 2023 11: 02am [facility] Medical Records Department [address] [place] [address] Progress Note - Hospitalist 07/22/23 1101 MR#: [id number] Acct: [id number] Name: DENIA GONZALEZ Rep #:[id number] : 1955 68 From: Jan brennan MD PCP: Dr. Yoseph Fall MD Status:AD M IN [facility] Subjective Subjective Doing well, feels like she [...] DVT: Lovenox Charges/Coding Visit Charges Inpatient E&M: 56881 Subs Hosp L2 07/22/23 1102 <Electronically signed by Jan Bolanos MD> Cosigner Signature (if applicable): CC: ~ Signed [facility] Work Phone: 1(118) 742-577303-27-2024 Progress note Author Jan Bolanos [facility] July 21, 2023 10:28am Note Date/Time July 21, 2023 10: 25am [facility] Medical Records Department [address] [place] [address] Progress Note - Hospitalist 07/21/23 1013 MR#: [id number] Acct: [id number] Name: DENIA GONZALEZ Rep #:[id number] : 1955 68 From: Jan brennan MD PCP: Dr. Yoseph Fall MD Status:AD M IN Location: [facility]3 NA647-0 Subjective Subjective She feels about the same [...] 88.1 H, Lymph % (Auto) 8.8 L, Aiken %(Auto) 2.7, Eos % (Auto) 0.0, Baso [...] DVT: Lovenox Charges/Coding Visit Charges Inpatient E&M: 92240 Subs Hosp L2 07/21/23 1028 <Electronically signed by Jan Bolanos MD> Cosigner Signature (if applicable): CC: ~ Signed [facility] Work Phone: 1(878) 404-275403-26-2024 Discharge summary Author Dallas Mena [facility] July 20, 2023 6:49am Note Date/Time July 20, 2023 3:0 9am [facility] Medical Records Department [address] [place] [address] Emergency Department Summary 07/20/23 MR#: [id number] Acct: [id number] Name: DENIA GONZALEZ Rep #:[id number] : 1955 68 From: Dallas Mena MD PCP: Dr. Yoseph Fall MD Status:AD M IN Location: [place] [address] HPI History of Present Illness Chief Complaint: [...] today. Primary care physician cauterant and Zithromax Z-Alban which she started yesterday. Subjectively she has [...] % (Auto) 67.5 Lymph % (Auto) 23.7 Aiken % (Auto) 7.6 Eos % (Auto) 0.6 [...] your Primary Care Provider. Call [facility] ([phone]) or report to the closest Emergency Room. Call 911 if necessary. 07/20/23 0649 <Electronically signed by Dallas Mena MD> Cosigner Signature (if applicable): CC: Dr. Yoseph Fall MD ~ Signed [facility] Work Phone: 1(520) 775-182403-26-2024 Miscellaneous Notes* Telephone Encounter - Martha Baac MA - 07/20/2023 8:40 AM EDT Pt currently admitted into [facility] due to symptoms. Martha Baca MA * Telephone Encounter - Martha Baca MA - 07/19/2023 1:17 PM EDT Called and left message on Sinan Falcon's voicemail to return call to the office and ask to speak with a FM triage nurse. Please update on message below from PCP. Martha Baca Ma * Telephone Encounter - Yoseph Fall MD - 07/19/2023 12:44 PM EDT Ok for Zpak as ordered Yoseph Fall MD * Telephone Encounter - Jennifer Hennessy LPN - 07/19/2023 8:33 AM EDT Pt's DIL Trevonmatpaulette, calls to reports pt has sx of [...] advise. Jennifer Hennessy LPN documented in this encounterOhio Valley Hospital03-26-2024 History and physical note Author José Smith [facility] July 20, 2023 4:55am Note Date/Time July 20, 2023 4:2 4am [facility] Medical Records Department [address] [place] [address] H&P Exam - Hospitalist 07/20/23 0406 MR#: [id number] Acct: [id number] Name: DENIA GONZALEZ Rep #:[id number] : 1955 68 From: José Abebe DO PCP: Dr. Yoseph Fall MD Status:AD M IN Location: [facility] SP745-9 HPI - General General Date of Admission: [...] anxiety, GERD and OA who presents to [facility] ER complaining of shortness of breath, [...] increased use of her nebulizers and a Z-Alban started by her primary care physician yesterday. Sheadmits to subjective fevers and worsening cough and wheezing that caused her to activate EMS. She denies associated chills, nausea, vomiting, leg pain, leg swelling, chest pain or hemoptysis. She admits her symptoms are similar to her previous COPD exacerbations. In the ER she was diagnosed with acute exacerbation of COPD with clinical evidence of vqtto-ud-iooorfw hypoxic respiratory insufficiency likely due to recent viral URI in the setting of ongoing tobacco abuse and she was then admitted to the general medical floor forongoing care for stay that is expected to be greater than 48 hours. [facility] Home Medications albuterol sulfate 90 mcg/actuation aerosol [...] % (Auto) 67.5, Lymph % (Auto) 23.7, Aiken% (Auto) 7.6, Eos % (Auto) 0.6, Baso [...] needed nebulizers. Give Tylenol as needed for tigb-le-csktckvi(level 1- 5/10) pain or fever. Continue Percocet prn for severe (level 6-10/10) pain. Tobacco cessation will be strongly encouraged with nicotine patch offeredto control cravings. 2. Viral URI likely triggering #1 - Check viral respiratory panel and placed oncontact and droplet precautions until confirmed negative. 3. Ibedd-tn-sbnwuzr hypoxic respiratory insufficiency arising from #1 & [...] 55 minutes. Charges/Coding Visit Charges Inpatient E&M: 07151 Init Hosp L2 07/20/23 1585 <Electronically signed by José Cunningham DO> Cosigner Signature (if applicable): CC: Dr. José Cunningham DO; Dr. Yoseph Fall MD~ Signed [facility] Work Phone: 1(883) 275-847203-04-2024 Miscellaneous Notes* Telephone Encounter - Yoseph Fall MD - 06/28/2023 3:59 PM EST OK to refill as ordered Yoseph Fall MD documented in this encounterOhio Valley Hospital02-22-2024 Miscellaneous Notes* Telephone Encounter - Naima Haines Ma - 06/17/2023 11:12 AM EST Faxed. Naima Haines Ma * Telephone Encounter - Naima Haines Ma - 06/17/2023 9:58 AM EST Type of letter/form/fax request - Medical Necessity-incontinence supplies Form received from fax on 1 floor and placed on MD desk (Dr. Fall) for completion. Completed form needs to be faxed to [facility] at [phone]. Route to [place] when form completed for processing documented in this encounterOhio Valley Hospital02-21-2024 Miscellaneous Notes* Telephone Encounter - Meenu [...] PA cmpleted for tiotropium alina GONZALEZ ([place]: [id number]) - [id number] Spiriva HandiHaler 18MCG capsules Status: PA Request Created: June 11, 2023 [id number] Sent: June 14, 2023 documented in this encounterOhio Valley Hospital02-20-2024 Miscellaneous Notes* Telephone Encounter - Martha Baca Ma - 06/15/2023 5:08 PM EST Pt called and notified that Rx has been sent in, verbalized understanding. Martha Baca Ma * Telephone Encounter - Yoseph Fall MD - 06/15/2023 4:56 PM EST OK for nystatin as ordered Yoseph Fall MD * Telephone Encounter - Martínez Louie RN - 06/15/2023 1:37 PM EST Patient reports she has thrush in her mouth, on her tongue to her throat, coated with white. No pain. Reports she gets thrush from her inhaler, and pcp sends Rx to [facility]. Reports she is housebound and cannot come in to see pcp. Pended. Please call pt with reply. documented in this encounterOhio Valley Hospital02-16-2024 Miscellaneous Notes* Telephone Encounter - Yoseph [...] you. Brynn Watson LPN. documented in this encounterOhio Valley Hospital12-05-2023 Miscellaneous Notes* Telephone Encounter - Padmini Abbott RN - 03/30/2023 4:17 PM EST Pt's significant other, Mike Gregg calling. Requesting PCP office to fax orders for pt's nebulizer ,compressor and accessories to [facility] at FAX #: [phone], along with recent OV note. States pt receives other equipment from them and they would like to use their services. States they have not heard from [facility] when orders were originally faxed to them. Faxed as requested. Padmini Abbott RN documented in this encounterOhio Valley Hospital11-22-2023 Miscellaneous Notes* Telephone Encounter - Roxanna [...] you. Roxanna Tineo LPN. documented in this encounterOhio Valley Hospital10-27-2023 Instructions* Patient Instructions* Martha Baca Ma - 02/19/2023 2:31 PM EDT Check with Licensed Retail Supervisor on RSV vaccine. documented in this encounterOhio Valley Hospital10-27-2023 History of Present illness Narrative* Yoseph [...] is currently being weaned down on her Morrow 5-325 mg, concerned about going any lower as she doesn't think her pain will be controlled. She is taking Morrow 5-325 mg 1 pill bid prn, getting #33/month, and Flexeril 10 mg BID prn. Morrow was decreased last visit from #35/month to [...] Agreeable to Flu shot today. Reports her Licensed Retail Supervisor, may be able to give her the [...] OR (myocardial infarction) (HCC) 10-10 taken to [facility] "heart stopped" Obstructive chronic bronchitis with exacerbation (HCC) COPD [...] instructed every 4 hours asneeded. PULSE OXIMETER [facility] Use as directed to check [...] as directed. Dx: COPD J44.9 Nebulizer Accessories [facility] Mask and supplies as needed Tvjvnnfwwkxjm-OF-fboiWXAwynl (MUCINEX FAST-MAX CONGEST-COUGH) 2.5-5-100 mg/5 mL liqd Take 10 mL by mouth three times daily as needed. OXYGEN, HOME THERAPY, 2.5 L/min by Nasal Cannula route continuous. Use as directred Disposable Gloves (DISPOSABLE LATEX-FREE GLOVES) [facility] 1 Box once every month. ICD 10: [...] 2020 Influenza Vaccine(1) due on 12/25/2022 Covid-19 Vaccine( - season) due on 12/25/2022 DTaP,Tdap,Td Vaccine(2 - [...] medication regimen. - Send Nebulizer supplies to [facility]. Gastroesophageal reflux disease, unspecified whether esophagitis [...] Past Histories independently gathered by the clinical director of sales support and the remaining scribed note accurately describes my personal service to the patient. Medical Decision Making: Problems: Moderate: 2+ stable chronic illnesses Data: Unique test(s) ordered: 3+ Risk: Moderate: Drug management Medical Decision Making Level: 4 - Moderate Yoseph Fall MD The documentation for this note was completed by Martha Baca Ma acting as scribe for Yoseph Fall MD. February 19, 2023 2:33 PM. Martha Baca Ma documented in this encounterOhio Valley Hospital09-22-2023 Miscellaneous Notes* Telephone Encounter - Nelson [...] you. Sukhi Marrero, RN documented in this encounterOhio Valley Hospital09-05-2023 Miscellaneous Notes* Telephone Encounter - Nelson [...] Nelson Robert APRN.CNP * Telephone Encounter - Cristian Mercedez Carrillo Martínez - 12/29/2022 12:32 PM EDT Pharmacy verified in [facility] Patient has been identified by [...] advise. Mercedez Foster Pss documented in this encounterOhio Valley Hospital08-17-2023 Miscellaneous Notes* Telephone Encounter - Meenu Hanks LPN - 12/10/2022 3:29 PM EDT Pt notfied Meenu Hanks LPN * Telephone Encounter - Yoseph Fall MD - 12/10/2022 2:38 PM EDT Order filed Yoseph Fall MD * Telephone Encounter - Brynn Watson LPN - 12/10/2022 12:09 PM EDT Patient daughter calling mother had sent to her to olive picker stool sample, no order in computer. Computer shows at last office visit Dr was asking patient if she would do IFOBT and no order was put in the computer. Pending order needs diagnosis. Call patient when order in place so can olive picker kit. Please advise documented in this encounterOhio Valley Hospital07-14-2023 Miscellaneous Notes* Telephone Encounter - Nelson [...] has one pill left. documented in this encounterOhio Valley Hospital05-09-2023 Miscellaneous Notes* Telephone Encounter - Michelle Alvarez Ma - 09/01/2022 10:23 AM EDT Images from the original note were not included. Ran PA through again with covermymed and used different dx code and was approved but used differentdx Michelle Alvarez Ma * Telephone Encounter - Michelle Alvarez Ma - 09/01/2022 9:50 AM EDT Called [facility] to check status since no faxes have been received. PA states no PA needed will call pharmacy and have them run with specific NDC code. NDC: [phone] NDC: [phone] Called [facility] and they ran medication which is still showing Pa needed with NDC codes used. Drugjonaht aware they will need to contact fina. Tried calling patient to update her but no answer and mailbox was full. Michelle Alvarez Ma * Telephone Encounter - Michelle Alvarez Ma - 08/26/2022 3:31 PM EDT Called fina to check on status of PA for flexeril and it did not go through covermymeds. Did PAover the phone with rep PA # [id number] Michelle Alvarez Ma * Telephone Encounter - Michelle Alvarez Ma - 08/21/2022 3:46 PM EDT PA have never been completed for either med which needs done first before appeal letter. Completed Electronic PA for Advair was approved and verified with [employer] through. Tried calling patientbut no answer and vm full. PA completed through covermymeds for flexeril [place]: [id number] Michelle Alvarez Ma * Telephone Encounter - Martha Baca Ma - 08/21/2022 3:01 PM EDT Routed to PA Nurse to see if there's anything that we need to do on our end that shows why the Insurance needs a letter. It looks like this was all improved on our end, but the coverage date may haveended. Martha Baca Ma * Telephone Encounter - Orly Stacy - 08/21/2022 2:40 PM EDT Denia Bhagat Carlos is calling Yoseph Fall MD today to request a letter to her insurance company stating why she needs Advair and Flexeril. I asked patient who we should send the letter to and she did not know the fax number. Patient's insurance is [employer]. Asked patient what the phone number was for [employer] and she gave me a phone number that was not for [employer]. I asked if this was aprior authorization that was needed and she said she needed a letter. Please contact patient with any other questions. No chief complaint on file. Patient has been identified by name and birthdate. Duration of symptoms: N/A Person calling: self Call patient at: at home [phone] (home) [phone] (cell) Was an appointment scheduled: No Closing statement: Results or non-symptom based questions: Thank you for calling [facility], your call will be returned within the next business day. Orly Stacy documented in this encounterOhio Valley Hospital03-10-2023 Miscellaneous Notes* Telephone Encounter - Naima Haines Ma - 07/03/2022 10:32 AM EST Faxed. Naima Haines Ma * Telephone Encounter - Naima Haines Ma - 07/02/2022 9:09 AM EST Type of letter/form/fax request - Medical Necessity-Incontinence supplies Form received from fax on [address]. Fall's desk for completion. Completed form needs to be faxed to [facility] at [phone]. Route to [place] when form completed for processing documented in this encounterOhio Valley Hospital03-06-2023 Miscellaneous Notes* Telephone Encounter - Nelson [...] mg tablet 0 Sig: Take by mouth. ROSSI-05/01/22 Labs-07/12/21 NOV-08/07/22 med filled 07/08/21 RX INSTRUCTIONS: Patient aware RX will be sent to pharmacy. No need to notify patient. Orly Stacy documented in this encounterOhio Valley Hospital02-13-2023 Miscellaneous Notes* Telephone Encounter - Nelson [...] you. Essie Medina RN documented in this encounterOhio Valley Hospital01-20-2023 Miscellaneous Notes* Telephone Encounter - Yoseph [...] Date of Last Labs: documented in this encounterOhio Valley Hospital01-10-2023 Miscellaneous Notes* Telephone Encounter - Nelson Robert APRN.CNP - 05/05/2022 1:29 PM EST The following approved medication requests have been transmitted electronically. Requested Prescriptions Pending Prescriptions Disp Refills tiotropium (SPIRIVA WITH HANDIHALER) 18 mcg inhalation capsule 810 capsule 0 Sig: inhale 1 capsule by mouth as directed once daily Nelson Robert APRN.CNP * Telephone Encounter - Fawn Ahumada Pss - 05/05/2022 12:55 PM EST Patient wants [...] notify patient. Fawn Carrillo documented in this encounterOhio Valley Hospital01-06-2023 History of Present illness Narrative* Yoseph [...] is currently being weaned down on her Morrow 5-325 mg. Does not think shecan go any lower on the Morrow. Pt on current regimen of Morrow 5-325 mg taking 1 tab po bid [...] was killed in [place]. COPD: Follows with [facility], Dr. Guzmán. Still smoking; encouraged cessation. Has cut [...] OR (myocardial infarction) (HCC) 10-10 taken to [facility] "heart stopped" Obstructive chronic bronchitis with exacerbation (HCC) COPD [...] instructed every 4 hours asneeded. PULSE OXIMETER [facility] Use as directed to check [...] Accessories mis Mask and supplies as needed Jyualngrjavbr-ST-zfrcXDTlonq (MUCINEX FAST-MAX CONGEST-COUGH) 2.5-5-100 mg/5 mL liqd Take 10 mL by mouth three times daily as needed. OXYGEN, HOME THERAPY, 2.5 L/min by Nasal Cannula route continuous. Use as directred Disposable Gloves (DISPOSABLE LATEX-FREE GLOVES) [facility] 1 Box once every month. ICD 10: [...] Past Histories independently gathered by the clinical director of sales support and the remaining scribed note accurately describes my personal service to the patient. 5-10 minutes of time spent on phone call Yoseph Fall MD The documentation for this note was completed by Naima Haines Ma acting as scribe for Yoseph Fall MD. May 01, 2022 2:41 PM. Naima Haines Ma documented in this encounterOhio Valley Hospital12-27-2022 Miscellaneous Notes* Telephone Encounter - Yoseph [...] up with PCP please. documented in this encounterOhio Valley Hospital11-04-2022 Miscellaneous Notes* Telephone Encounter - Falguni [...] file order for oxygen and fax to [facility] in [place]. This nurse does not see order in computer and it appears PCP has ordered oxygen in the past. Please call patient at [phone] when this has been completed or if there are any issues. documented in this encounterOhio Valley Hospital10-28-2022 Procedure note* MUNA Cutler - 02/20/2022 [...] TIME: 1:25 PM Comment: documented in this encounterOhio Valley Hospital10-28-2022 History of Present illness Narrative* MUNA Cutler - 02/20/2022 1:22 PM EDT PULM FUNCTION SMARTBLOCK: Provider: Michelle Guzmán MD Assisting Tech: MUNA Cutler Oximetry - Ambulation: 1 documented in this encounterOhio Valley Hospital09-27-2022 Miscellaneous Notes* Telephone Encounter - Nelson Robert APRN.[place] - 01/20/2022 1:36 PM EDT Approved. PDMP [...] ROBERT APRN.CNP * Telephone Encounter - Fina Carrillo - 01/20/2022 9:24 AM EDT Patient has [...] pharmacy. No need to notify patient. Fina Carrillo documented in this encounterOhio Valley Hospital09-15-2022 Miscellaneous Notes* Telephone Encounter - Falguni Patton LPN - 01/08/2022 8:39 AM EDT Noted, thank you! Falguni Patton LPN * Telephone Encounter - Mini Pineda RN - 01/08/2022 8:31 AM EDT Bettie with [facility] calling in. [facility] pt. needs to re-qualify for home O2. Pt. has not seen a Robotic Machine Operator for a while (former pt. of Dr. Huertas). This nurse instructed Bettie to have pt.call to set up consult/ appt with Dr. Guzmán. Bettie will do so. Mini Pineda, RN documented in this encounterOhio Valley Hospital08-25-2022 Miscellaneous Notes* Telephone Encounter - Naima [...] you. Martínez Louie RN documented in this encounterOhio Valley Hospital07-25-2022 Miscellaneous Notes* Telephone Encounter - Nelson [...] need to notify patient. Nica Tellez MA Rossi; 09/2021 Nov; 12/2021 Last refill: 10/17/2021 * [...] patient. Denia Ariza Pss documented in this encounterOhio Valley Hospital06-24-2022 History of Present illness Narrative* Yoseph [...] is currently being weaned down on her Morrow 5-325 mg. Pt on current regimen of Morrow 5-325 mg taking 1 tab po bid [...] OR (myocardial infarction) (HCC) 10-10 taken to [facility] "heart stopped" Obstructive chronic bronchitis with exacerbation (HCC) COPD [...] as needed for muscle spasm. PULSE OXIMETER [facility] Use as directed to check [...] as directed. Dx: COPD J44.9 Nebulizer Accessories [facility] Mask and supplies as needed Jobhuzjernpob-TB-itriUREplsw (MUCINEX FAST-MAX CONGEST-COUGH) 2.5-5-100 mg/5 mL liqd Take 10 mL by mouth three times daily as needed. OXYGEN, HOME THERAPY, 2.5 L/min by Nasal Cannula route continuous. Use as directred Disposable Gloves (DISPOSABLE LATEX-FREE GLOVES) [facility] 1 Box once every month. ICD 10: [...] Past Histories independently gathered by the clinical director of sales support and the remaining scribed note accurately describes my personal service to the patient. Yoseph Fall MD The documentation for this note was completed by Naima Haines Ma acting as scribe for Yoseph Fall MD. October 17, 2021 2:02 PM. Naima Haines Ma documented in this encounterOhio Valley Hospital06-07-2022 Miscellaneous Notes* Telephone Encounter - Naima [...] you. Mikayla Mora LPN documented in this encounterOhio Valley Hospital05-23-2022 Miscellaneous Notes* Telephone Encounter - Yoseph [...] patient. Jennifer Hennessy LPN documented in this encounterOhio Valley Hospital05-04-2022 Miscellaneous Notes* Telephone Encounter - Nelson [...] provider send a new prescription to [facility]. Pharmacy won't fill current prescription. Date [...] you. Sukhi Marrero RN documented in this encounterOhio Valley Hospital04-25-2022 Miscellaneous Notes* Telephone Encounter - Naima [...] you. Padmini Abbott RN documented in this encounterOhio Valley Hospital03-07-2017 History of Past illness Narrative* Problem [...] - Not done as it will not oil change technician (same duration of ABx treatment) Cholelithiasis with [...] 06/24/2016 - Decreased Flatulence - KUB at [place] [facility] was normal (report available only) Plan: [...] of this encounter (statuses as of 08/01/2021) [place] [id number] History of Past illness Narrative* Problem Noted [...] - Not done as it will not oil change technician (same duration of ABx treatment) Cholelithiasis with [...] 06/24/2016 - Decreased Flatulence - KUB at [place] [facility] was normal (report available only) Plan: [...] of this encounter (statuses as of 08/18/2021) [facility] of Past illness Narrative* Problem [...] - Not done as it will not oil change technician (same duration of ABx treatment) Cholelithiasis with [...] 06/24/2016 - Decreased Flatulence - KUB at [place] [facility] was normal (report available only) Plan: [...] of this encounter (statuses as of 08/27/2021) [facility] of Past illness Narrative* Problem [...] - Not done as it will not oil change technician (same duration of ABx treatment) Cholelithiasis with [...] 06/24/2016 - Decreased Flatulence - KUB at [place] [facility] was normal (report available only) Plan: [...] of this encounter (statuses as of 09/15/2021) [facility] of Past illness Narrative* Problem [...] - Not done as it will not oil change technician (same duration of ABx treatment) Cholelithiasis with [...] 06/24/2016 - Decreased Flatulence - KUB at [place] [facility] was normal (report available only) Plan: [...] of this encounter (statuses as of 09/30/2021) [facility] of Past illness Narrative* Problem [...] - Not done as it will not oil change technician (same duration of ABx treatment) Cholelithiasis with [...] 06/24/2016 - Decreased Flatulence - KUB at [place] [facility] was normal (report available only) Plan: [...] of this encounter (statuses as of 10/17/2021) [facility] of [facility] Narrative* Problem [...] - Not done as it will not oil change technician (same duration of ABx treatment) Cholelithiasis with [...] 06/24/2016 - Decreased Flatulence - KUB at [facility] was normal (report available only) Plan: [...] of this encounter (statuses as of 11/17/2021) [facility] of Past illness Narrative* Problem [...] - Not done as it will not oil change technician (same duration of ABx treatment) Cholelithiasis with [...] 06/24/2016 - Decreased Flatulence - KUB at [place] [facility] was normal (report available only) Plan: [...] of this encounter (statuses as of 12/18/2021) [facility] of [facility] illness Narrative* Problem [...] - Not done as it will not oil change technician (same duration of ABx treatment) Cholelithiasis with [...] 06/24/2016 - Decreased Flatulence - KUB at [place] [facility] was normal (report available only) Plan: [...] of this encounter (statuses as of 01/08/2022) [facility] of [facility] Narrative* Problem [...] - Not done as it will not oil change technician (same duration of ABx treatment) Cholelithiasis with [...] 06/24/2016 - Decreased Flatulence - KUB at [place] [facility] was normal (report available only) Plan: [...] of this encounter (statuses as of 01/13/2022) [place] [address]-07-2017 History of Past illness Narrative* Problem Noted [...] - Not done as it will not oil change technician (same duration of ABx treatment) Cholelithiasis with [...] 06/24/2016 - Decreased Flatulence - KUB at [place] [facility] was normal (report available only) Plan: [...] of this encounter (statuses as of 01/20/2022) [facility] of [facility] Narrative* Problem [...] - Not done as it will not oil change technician (same duration of ABx treatment) Cholelithiasis with [...] 06/24/2016 - Decreased Flatulence - KUB at [place] [facility] was normal (report available only) Plan: [...] of this encounter (statuses as of 02/20/2022) [facility] of [facility] Narrative* Problem [...] - Not done as it will not oil change technician (same duration of ABx treatment) Cholelithiasis with [...] 06/24/2016 - Decreased Flatulence - KUB at [place] [facility] was normal (report available only) Plan: [...] of this encounter (statuses as of 02/27/2022) [facility] Narrative* Problem [...] - Not done as it will not oil change technician (same duration of ABx treatment) Cholelithiasis with [...] 06/24/2016 - Decreased Flatulence - KUB at [place] [facility] was normal (report available only) Plan: [...] of this encounter (statuses as of 04/26/2022) [facility] Narrative* Problem [...] - Not done as it will not oil change technician (same duration of ABx treatment) Cholelithiasis with [...] 06/24/2016 - Decreased Flatulence - KUB at [place] [facility] was normal (report available only) Plan: [...] of this encounter (statuses as of 05/02/2022) [facility] Narrative* Problem [...] - Not done as it will not oil change technician (same duration of ABx treatment) Cholelithiasis with [...] 06/24/2016 - Decreased Flatulence - KUB at [place] [facility] was normal (report available only) Plan: [...] of this encounter (statuses as of 05/05/2022) [facility] Narrative* Problem [...] - Not done as it will not oil change technician (same duration of ABx treatment) Cholelithiasis with [...] 06/24/2016 - Decreased Flatulence - KUB at [place] [facility] was normal (report available only) Plan: [...] of this encounter (statuses as of 05/15/2022) [facility] Narrative* Problem [...] - Not done as it will not oil change technician (same duration of ABx treatment) Cholelithiasis with [...] 06/24/2016 - Decreased Flatulence - KUB at [place] [facility] was normal (report available only) Plan: [...] of this encounter (statuses as of 06/08/2022) [facility] Narrative* Problem [...] - Not done as it will not oil change technician (same duration of ABx treatment) Cholelithiasis with [...] 06/24/2016 - Decreased Flatulence - KUB at [place] [facility] was normal (report available only) Plan: [...] of this encounter (statuses as of 06/29/2022) [facility] Narrative* Problem [...] - Not done as it will not oil change technician (same duration of ABx treatment) Cholelithiasis with [...] 06/24/2016 - Decreased Flatulence - KUB at [place] [facility] was normal (report available only) Plan: [...] of this encounter (statuses as of 07/03/2022) [facility] Narrative* Problem [...] - Not done as it will not oil change technician (same duration of ABx treatment) Cholelithiasis with [...] 06/24/2016 - Decreased Flatulence - KUB at [place] [facility] was normal (report available only) Plan: [...] of this encounter (statuses as of 09/01/2022) [facility] Narrative* Problem [...] - Not done as it will not oil change technician (same duration of ABx treatment) Cholelithiasis with [...] 06/24/2016 - Decreased Flatulence - KUB at [place] [facility] was normal (report available only) Plan: [...] of this encounter (statuses as of 11/06/2022) [facility] Narrative* Problem [...] - Not done as it will not oil change technician (same duration of ABx treatment) Cholelithiasis with [...] 06/24/2016 - Decreased Flatulence - KUB at [place] [facility] was normal (report available only) Plan: [...] of this encounter (statuses as of 11/06/2022) [facility] Narrative* Problem [...] - Not done as it will not oil change technician (same duration of ABx treatment) Cholelithiasis with [...] 06/24/2016 - Decreased Flatulence - KUB at [place] [facility] was normal (report available only) Plan: [...] of this encounter (statuses as of 12/29/2022) [facility] Narrative* Problem [...] - Not done as it will not oil change technician (same duration of ABx treatment) Cholelithiasis with [...] 06/24/2016 - Decreased Flatulence - KUB at [facility] was normal (report available only) Plan: [...] of this encounter (statuses as of 01/15/2023) [facility] Narrative* Problem [...] - Not done as it will not oil change technician (same duration of ABx treatment) Cholelithiasis with [...] 06/24/2016 - Decreased Flatulence - KUB at [place] [facility] was normal (report available only) Plan: [...] of this encounter (statuses as of 01/30/2023) [facility] Narrative* Problem [...] - Not done as it will not oil change technician (same duration of ABx treatment) Cholelithiasis with [...] 06/24/2016 - Decreased Flatulence - KUB at [place] [facility] was normal (report available only) Plan: [...] of this encounter (statuses as of 02/19/2023) [facility] Narrative* Problem [...] - Not done as it will not oil change technician (same duration of ABx treatment) Cholelithiasis with [...] 06/24/2016 - Decreased Flatulence - KUB at [place] [facility] was normal (report available only) Plan: [...] of this encounter (statuses as of 03/17/2023) [facility] Narrative* Problem [...] - Not done as it will not oil change technician (same duration of ABx treatment) Cholelithiasis with [...] 06/24/2016 - Decreased Flatulence - KUB at [place] [facility] was normal (report available only) Plan: [...] of this encounter (statuses as of 03/31/2023) [facility] Narrative* Problem [...] - Not done as it will not oil change technician (same duration of ABx treatment) Cholelithiasis with [...] 06/24/2016 - Decreased Flatulence - KUB at [place] [facility] was normal (report available only) Plan: [...] of this encounter (statuses as of 06/11/2023) [facility] Narrative* Problem [...] - Not done as it will not oil change technician (same duration of ABx treatment) Cholelithiasis with [...] 06/24/2016 - Decreased Flatulence - KUB at [place] [facility] was normal (report available only) Plan: [...] of this encounter (statuses as of 06/15/2023) [facility] Narrative* Problem [...] - Not done as it will not oil change technician (same duration of ABx treatment) Cholelithiasis with [...] 06/24/2016 - Decreased Flatulence - KUB at [place] [facility] was normal (report available only) Plan: [...] of this encounter (statuses as of 06/16/2023) [facility] Narrative* Problem [...] - Not done as it will not oil change technician (same duration of ABx treatment) Cholelithiasis with [...] 06/24/2016 - Decreased Flatulence - KUB at [place] [facility] was normal (report available only) Plan: [...] of this encounter (statuses as of 06/17/2023) [facility] Narrative* Problem [...] - Not done as it will not oil change technician (same duration of ABx treatment) Cholelithiasis with [...] 06/24/2016 - Decreased Flatulence - KUB at [place] [facility] was normal (report available only) Plan: [...] of this encounter (statuses as of 06/21/2023) [facility] Narrative* Problem [...] - Not done as it will not oil change technician (same duration of ABx treatment) Cholelithiasis with [...] 06/24/2016 - Decreased Flatulence - KUB at [place] [facility] was normal (report available only) Plan: [...] of this encounter (statuses as of 06/28/2023) [facility] Narrative* Problem [...] - Not done as it will not oil change technician (same duration of ABx treatment) Cholelithiasis with [...] 06/24/2016 - Decreased Flatulence - KUB at [place] [facility] was normal (report available only) Plan: [...] of this encounter (statuses as of 07/20/2023) [facility] Narrative* Problem [...] - Not done as it will not oil change technician (same duration of ABx treatment) Cholelithiasis with [...] 06/24/2016 - Decreased Flatulence - KUB at [place] [facility] was normal (report available only) Plan: [...] of this encounter (statuses as of 07/26/2023) [facility] Narrative* Problem [...] - Not done as it will not oil change technician (same duration of ABx treatment) Cholelithiasis with [...] 06/24/2016 - Decreased Flatulence - KUB at [place] [facility] was normal (report available only) Plan: [...] of this encounter (statuses as of 07/27/2023) [facility] Narrative* Problem [...] - Not done as it will not oil change technician (same duration of ABx treatment) Cholelithiasis with [...] 06/24/2016 - Decreased Flatulence - KUB at [place] [facility] was normal (report available only) Plan: [...] of this encounter (statuses as of 08/06/2023) [facility] Hospital[facility] summary Author Riley Jeff [facility] Note Date/Time September 29, 2024 4:33a m [facility] Medical Records Department [address] [place] [address] Emergency Department Summary 09/29/24 MR#: [id number] Acct: [id number] Name: DENIA GONZALEZ Rep #:[id number] : 1955 69 From: Riley Jeff DO [...] Secondary to that she presents for evaluation [facility] Medical History RLS (restless legs syndrome) [...] 78.5 H Lymph % (Auto) 13.2 L Aiken % (Auto) 6.9 Eos % (Auto) 0.7 [...] of an acute cardiopulmonary abnormality. Reading Location: [id number] Chest x-ray as interpreted by the emergency [...] your Primary Care Provider. Call [facility] ([phone]) or report to the closest Emergency Room. Call 911 if necessary. 09/29/24 0433 <Electronically signed by Riley Jeff DO> Cosigner Signature (if applicable): CC: Dr. Yoseph Fall MD ~ Signed [facility] Work Phone: Discharge summary Author Alessandro Palma [facility] Note Date/Time October 09, 2024 3:58 pm [facility] Medical Records Department [address] [place] [address] Instructions for Home/Discharge Instructions 10/09/24 1542 MR#: [id number] Acct: [id number] Name: DENIA GONZALEZ Rep #:[id number] : 1955 69 From: Alessandro Liu PCP: [...] placed): Home Health Service 10/09/241557<Electronically signed by Alessadnro Palma MD>Alessandro Palma MD CC: Dr. Dionne Porter MD; Dr. Yoseph Fall MD; Dr. Junito Madrid MD; Dr. Lynne Schafer MD; Dr. Jan Bolanos MD ~ Signed [facility] Work Phone: Discharge summary Author [facility] Louie [facility] Note Date/Time October 09, 2024 4:06 pm [facility] Medical Records Department [address] [place] [address] Discharge Summary 10/09/24 1558 MR#: [id number] Acct: [id number] Name: DENIA GONZALEZ Rep #:[id number] : 1955 69 From: Alessandro Liu PCP: Dr. Yoseph Fall MD Status:AD M IN Location: [facility] [id number] Providers Date of Admission: 09/29/24 Date [...] mg twice daily. * Discussed with the shirt bander Dr. Hopkins today. Discharge on verapamil and [...] 86.9 H, Lymph % (Auto) 6.9 L, Aiken %(Auto) 5.3, Eos % (Auto) 0.0, Baso [...] (Evaluation for moderate to severe aortic stenosis) Lindsya Whitehead PA [Med Staff - Adv Practice Prof] - Within 1 Week Disposition Disposition (needs filled in before D/C Order can be placed): Home Health Service Charges/Coding Visit Charges Inpatient E&M: 73993 Disch Hosp >30min 10/09/24 1606 <Electronically signed by Alessandro Palma MD> Cosigner Signature (if applicable): CC: Dr. Yoseph Fall MD; Dr. Alessandro Palma MD~ Signed [facility] Work Phone: Discharge summary Author Lynne Schafer [facility] Note Date/Time December 30, 2024 11:[address] [place] [address] Health System Medical Records Department [address] [place] [address] Instructions for Home/Discharge Instructions 12/30/24 1141 MR#: [id number] Acct: [id number] Name: DENIA GONZALEZ Rep #:[id number] : 1955 69 From: Lynne Schafer MD [...] Providers: Dionne Porter; Stacy Jha; Alessandro Palma; Kyle Mendenhall; Elma Mendez; Mercedez Joseph; Jackie Henry Instructions [...] by Lynne Schafer MD>Lynne Schafer MD CC: SOUND EFFECTS TECHNICIAN-C Elma Mendez; SOUND EFFECTS TECHNICIAN-C Stacy Jha; SOUND EFFECTS TECHNICIAN-C Mercedez Joseph; Dr. Dionne Porter MD; Dr. Yoseph Fall MD; Dr. Alessandro Palma MD;SADIQ Paez; Kyle Mendenhall DO ~ Signed [facility] Work Phone: Discharge summary Author [facility] Note Date/Time January 25, 2025 10 :35am [facility] Medical Records Department [address] [place] [address] Emergency Department Summary 01/25/25 MR#: [id number] Acct: [id number] Name: DENIA GONZALEZ Rep #:[id number] : 1955 69 From: Mercy Lamas PCP: Dr. Yoseph Fall MD Status:RE G ER Location: ED HPI History of Present Illness Chief Complaint: Shortness of Breath Informant: patient Narrative Narrative: Patient is a 69-year-old female with history of chronic respiratory failure on 3L of oxygen at baseline, COPD, atrial fibrillation (on Eliquis) GI bleed last month, hypertension and anxiety/depression presenting with worsening shortness of breath. Per EMS reports patient actually called at 5:30 AM and then refused transport. They were called out again and transported her. They note she was 91% on 4 L when I got her to the cot. They gave her a DuoNeb and route. A couple minutes prior to arrival EMS states she stopped answering questions and was not talk anymore. Upon arrival to the emergency room patient is breathing quickly and is nonverbal. She is not following any commands and is trying to pull off her nonrebreather. Attempted BiPAP as I suspect patient has acute decompensated respiratory failureand likely hypercapnic (end-tidal CO2 is elevated) however patient is not tolerating this. Decision made to intubate for respiratory distress/failure. Attempted to call her significant other Mike as well as son who is listed in the chart but was unable to speak with anyone. After intubation?see procedure notes, patient's significant other Mike did callback. He states she has been having worsening respiratory symptoms for "too long" it sounds like it been a week or 2 ago. She has been refusing to come to the emergency room for evaluation of this. He notes that she did have a heart cath 3 weeks ago at [facility]. He is not sure if she is still on her Eliquis or not. No other information obtained at this time. He understand that she will need admission to the ICU. [facility] Medical History Palliative care encounter Acute anemia Acute respiratory insufficiency Anxiety Anxiety and depression Respiratory insufficiency COPD with acute exacerbation Afib Aortic valve stenosis RLS (restless legs [...] PO DAILY allergies 09/23/14 History 10 MG tiotropium bromide 18 mcg capsule 1 puff inhalation DA BINU wheezing 04/18/13 09/23/14 History with inhalation device (Spiriva with HandiHaler) Oxygen, Home [Home Oxygen] 2.5 lpm PRN PRN Dyspnea 09/23/14 History sertraline 100 mg tablet 100 mg PO BID mood 06/29/14 05/31/15 History fluticasone 500 mcg-salmeterol 50 1 puff [...] thinn e #60 tabs 11/03/24 Unknown Rx Held on 12/30/24. Instructions: Resume on 01/02/25. hold per GI, until 01/02/2025 carvedilol 6.25 mg tablet 6.25 mg PO BID bp #60 tabs 0 11/03/24 Unknown Rx furosemide 20 mg tablet 20 mg PO DAILY fluid overloa d 12/27/24 Unknown History simethicone 250 mg capsule (Gas-X) 250 mg PO BID gas 0 12/27/24 Unknown History pantoprazole 40 mg tablet,delayed 40 mg PO BID #60 tab s 12/30/24 Unknown Rx release prednisone 20 mg tablet 40 mg (2 x 20 mg) PO DAILY # 10 tabs 12/30/24 Unknown Rx verapamil 180 mg 24 hr 180 mg PO BID #60 caps 12/30 Unknown Rx capsule,extended release Allergy/AdvReac Type Severity Reaction Status Date / Time No Known Allergies Allergy Verified 01/25/25 08:25 Family History Mother Hypertension Throat cancer Father Hypertension Stomach cancer Surgical History H/O exploratory laparotomy History of lung surgery History of cholecystectomy Social History household members: significant other and none housing: apartment Smoking Status: Former smoker alcohol intake: former substance use type: does not use ROS ROS ED Review of Systems ROS Unobtainable: due to mental status EXAM Physical Exam Const Vital Signs: 01/25/25 08:25 01/25/25 08:28 01/25/25 08:30 Temperature 97.6 F L Temperature Source Temporal Pulse Rate 115 H Respiratory Rate 25 H Respiratory Effort Respiratory Depth Respiratory Pattern Blood Pressure 174/139 H Blood Pressure Mean 150 Pulse Ox 96 Oxygen Delivery Method Nasal Cannula Nasal Cannula Oxygen Flow Rate (L/min) Fraction of Inspired Oxygen (FIO2) 40 01/25/25 08:38 01/25/25 08:45 01/25/25 08:54 Temperature Temperature Source Pulse Rate Respiratory Rate Respiratory Effort Short of Breath Labored Accessory Muscle Use Head Bobbing Respiratory Depth Shallow Respiratory Pattern Tachypnea Blood Pressure Blood Pressure Mean Pulse Ox Oxygen Delivery Method Oxygen Flow Rate (L/min) Fraction of Inspired Oxygen (FIO2) 100 100 01/25/25 09:04 01/25/25 09:10 01/25/25 09:24 Temperature Temperature Source Pulse Rate 111 H 103 H Respiratory Rate 16 16 Respiratory Effort Short of Breath Labored Respiratory Depth Respiratory Pattern Tachypnea Blood Pressure 142/77 H Blood Pressure Mean 98 Pulse Ox 100 Oxygen Delivery Method Nasal Cannula Mechanical Ventilator Oxygen Flow Rate (L/min) 8 Fraction of Inspired Oxygen (FIO2) 01/25/25 09:33 01/25/25 10:00 01/25/25 10:22 Temperature 100.4 F H 100.6 F H Temperature Source Core Pulse Rate 109 H 96 104 H Respiratory Rate 16 16 16 Respiratory Effort Respiratory Depth Respiratory Pattern Blood Pressure 134/73 H 111/88 H Blood Pressure Mean 93 95 Pulse Ox 100 95 95 Oxygen Delivery Method Mechanical Ventilator Oxygen Flow Rate (L/min) Fraction of Inspired Oxygen (FIO2) 40 01/25/25 10:22 Temperature 100.6 F H Temperature Source Core Pulse Rate 100 Respiratory Rate 16 Respiratory Effort Respiratory Depth Respiratory Pattern Blood Pressure 111/88 H Blood Pressure Mean 95 Pulse Ox 95 Oxygen Delivery Method Mechanical Ventilator Oxygen Flow Rate (L/min) Fraction of Inspired Oxygen (FIO2) Positive well nourished, well developed and unkempt Constitutional Narrative: Patient in acute respiratory distress General Appearance ED: unkempt and well developed HEENT Reports dry mucous membranes HEENT Narrative: Edentulous on the top teeth. atraumatic Mouth ED: Yes dry mucous membranes Mouth: dry mucous membranes Eyes EOMs intact bilaterally Neck supple and no JVD Resp Resp Narrative: Tachypneic. Wheezing throughout. Diminished breath sounds with shallow respirations Cardio regular rate Rate: tachycardic GI non-tender and non-distended Extremity Extremity Narrative: Pedal edema of the left lower extremity, pitting. This is asymmetric from the right. Unsure about chronicity. Neuro Pilar Coma Scale: document GCS findings Spontaneous Withdraws to Pain Incomprehensible 10 Sensorium / Orientation: alert Motor Exam: general weakness Psych Appearance: unkempt Skin Skin Narrative: Scattered ecchymosis on the abdomen and arms consistent with prior injections orIVs MDM MDM MDM Narrative Medical decision making narrative: Patient evaluated for worsening respiratory symptoms. Upon arrival to the ER isobtunded. Suspect she is in acute respiratory failure and has impending respiratory collapse. Attempted BiPAP however she did not tolerate this. Decision made to intubate. Just prior to intubation patient has decreased respiratory rate and is bagged. Intubation performed, see procedure notes, without any immediate complications. Once patient sedated will obtain workup looking for cause of her respiratory failure which includes not limited to intracranial hemorrhage, symptomatic anemia, pneumonia, COPD exacerbation and pulmonary emboli (unclear if patient's beencompliant with her Eliquis). Was able to speak with significant other and understand that she is intubated and will need admission to an ICU. Patient given broad-spectrum antibiotics (Rocephin and azithromycin) empiricallyfor concern for pneumonia. Was given Solu-Medrol as clinically I suspect this is a COPD exacerbation. X-ray viewed by myself shows some mild pulmonary vascular congestion with small effusion of the right side. ET tube at the level of the aortic arch. NG tube appears to be in appropriate position. Chart review?discharge summary from reviewed. Patient was post to restart her Eliquis on 01/02. Was discharged with a prednisone taper for COPD exacerbation. 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 She is following up with [facility] for her severe concentric left ventricular hypertrophy EF of 70% stage I diastolic dysfunction and severe aortic valve stenosis. Patient is she started propofol drip for sedation. Does require Versed with improved blood pressure and heart rates. Seems more comfortable. Workup most consistent with likely COPD exacerbation and possible underlying pneumonia. Is given broad- spectrum antibiotics as well as Solu-Medrol. Case discussed with hospitalist for admission, Dr. Palma. Also discussed the case with medical lab specialist. While in the ICU patient's does develop a fever of 100.6-100.8. Is given rectalTylenol for this. This is consistent with concern for pneumonia. Case is discussed with Dr. Guzmán. He states life she will likely need broader antibiotics as she has grown out Pseudomonas in the past. Lab Data Attestation: I reviewed the patient's lab results. Labs: Laboratory Results - last 24 hr 01/25/25 01/25/25 08:15 08:40 WBC 12.2 H RBC 3.52 L Hgb 8.4 L Hct 28.8 L MCV 81.8 MCH 23.9 L MCHC 29.2 L RDW Std Deviation 40.7 RDW Coeff of Augustin 13.6 Plt Count 315 MPV 10.5 Immature Gran % (Auto) 0.700 Neut % (Auto) 74.3 H Lymph % (Auto) 12.5 L Aiken % (Auto) 11.0 H Eos % (Auto) 1.3 Baso % (Auto) 0.2 Absolute Neuts (auto) 9.1 H Absolute Lymphs (auto) 1.53 Nucleated RBC % 0 Sodium 137 Potassium 3.5 Chloride 84 L Carbon Dioxide 44.1 H Anion Gap 9 BUN 31 H Creatinine 0.63 L Estim Creat Clear Calc 65.65 Est GFR (MDRD) Non-Af 96 BUN/Creatinine Ratio 48.1 H Glucose 115 H Lactic Acid 1.9 Calcium 9.0 Total Creatine Kinase 77 Troponin T High Sens 38 H D NT pro BNP II 1192 H Triglycerides 135 Radiography Chest X-Ray - ED: 1 View, Read by ED Physician and Read by Radiologist Diagnostic Testing: Clinical Impression(s) from Imaging Studies Brain CT 01/25/25 08:46 IMPRESSION: CHRONIC CHANGES. NO ACUTE FINDINGS. Reading Location: [facility] Chest CTA 01/25/25 08:51 IMPRESSION: No demonstrated PE, however, the contrast bolus within the pulmonary arteries isnot optimal and a subtle filling defect could be present and overlooked particularly in the distal pulmonary artery branches No thoracic aortic aneurysm or dissection Emphysema with chronic interstitial changes, nonspecific pleural thickening in both hemithoraces, subsegmental atelectasis, and multifocal pneumonitis ET tube is 1 cm above the kaylan and should be pulled back 2-3 cm NG tube tip in the body of the stomach Degenerative bony changes Hiatal hernia with evidence of GE reflux Fatty liver Simple renal cysts, no specific follow-up needed Reading Location: [facility] Chest X-Ray 01/25/25 09:00 IMPRESSION: Tubes and lines in position. There are interstitial infiltrates throughout the right mid and lower lung and left lingular segment. There are trace bilateral effusions. [facility] Rhythm Strip Rhythm Strip: Sinus Tach Rate: 110 Ectopy: PAC(s) EKG Initial EKG: Attestation: I personally reviewed and interpreted this EKG as follows: Interpretation: Sinus Tachycardia Comments: Sinus tachycardia at a rate of 110 bpm with PACs Normal axis Right atrial enlargement Minimal voltage criteria for LVH Normal ST segments Compared to prior EKG on 01/18 patient is no longer in atrial fibrillation Prior EKG tracings: available for review Management Discussion w/another healthcare provider: Hospitalist and Shopper Procedures Intubations Intubation Method: orotracheal (7.5 ET tube. 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 Call [facility] ([phone]) or report to the closest Emergency Room. Call 911 if necessary. 01/25/25 1035 <Electronically signed by Mercy Flores DO> Cosigner Signature (if applicable): CC: Dr. Yoseph Fall MD ~ Signed [facility] Work Phone: Evaluation note* Diagnosis Essential hypertension, benign- Primary Elevated glucose Other abnormal glucose [facility] Chronic low back pain with sciatica, sciatica laterality unspecified, unspecified back pain laterality [facility] Diagnosis Chronic obstructive pulmonary disease, unspecified COPD type (HCC) [facility] Diagnosis Chronic obstructive pulmonary disease, unspecified COPD type (HCC)- Primary Chronic low back pain with sciatica, sciatica laterality unspecified, unspecified back pain laterality Essential hypertension, benign Uncomplicated asthma, unspecified asthma severity, unspecified whether persistent Generalized anxiety disorder [facility] Diagnosis Chronic low back pain with sciatica, sciatica laterality unspecified, unspecified back pain laterality [facility] Diagnosis Chronic obstructive pulmonary disease, unspecified COPD type (HCC)- Primary [facility] Diagnosis Chronic low back pain with sciatica, sciatica laterality unspecified, unspecified back pain laterality documented in this encounter [facility] note* Diagnosis Chronic obstructive pulmonary disease, unspecified COPD type (HCC) documented in this encounter [facility] note* Diagnosis Stage 3 severe COPD by GOLD classification (HCC)- Primary Chronic respiratory failure with hypoxia (HCC) Chronic respiratory failure documented in this encounter [facility] note* Diagnosis Stage 3 severe COPD by GOLD classification ([facility])- Primary Chronic low back pain with sciatica, sciatica laterality unspecified, unspecified back pain laterality Chronic respiratory failure with hypoxia (HCC) Chronic respiratory failure Essential hypertension, benign Generalized anxiety disorder Tobacco use disorder documented in this encounter [facility] note* Diagnosis Chronic obstructive pulmonary disease, unspecified COPD type (HCC) Uncomplicated asthma, unspecified asthma severity, unspecified whether persistent documented in this encounter [facility] note* Diagnosis Esophageal reflux documented in this encounter [facility] note* Diagnosis Generalized osteoarthrosis, involving multiple sites documented in this encounter [facility] note* Diagnosis Generalized osteoarthrosis, involving multiple sites documented in this encounter [facility] note* Diagnosis Screening for colon cancer- Primary Special screening for malignant neoplasms, colon documented in this encounter [facility] note* Diagnosis Chronic low back pain [...] therapeutic drug monitoring documented in this encounter [facility] note* Diagnosis Thrush, oral Candidiasis of mouth documented in this encounter [facility] note* Diagnosis Encounter for screening mammogram for breast cancer documented in this encounter [facility] note* Diagnosis Onset Date Resolution Status COPD (chronic obstructive pulmonary disease) acute Hypoxia acute Respiratory insufficiency ac tyra Viral URI with cough acute COPD with acute exacerbation [facility] Work Phone: Evaluation note* Diagnosis Obstructive chronic bronchitis with exacerbation (HCC)- Primary Obstructive chronic bronchitis with exacerbation Stage 3 severe COPD by GOLD classification ([facility]) Cigarette smoker Tobacco use disorder Chronic respiratory failure with hypoxia (HCC) Chronic respiratory failure [facility] Diagnosis Stage 3 severe COPD by GOLD classification (HCC)- Primary Essential hypertension, benign Cigarette smoker Tobacco use disorder Generalized anxiety disorder Chronic low back pain with sciatica, sciatica laterality unspecified, unspecified back pain laterality [facility] Diagnosis Chronic low back pain with sciatica, sciatica laterality unspecified, unspecified back pain laterality [facility] Diagnosis Chronic low back pain with sciatica, sciatica laterality unspecified, unspecified back pain laterality Tobacco use disorder [facility] Diagnosis Bronchitis Bronchitis, not specified as acute or chronic [facility] Diagnosis Generalized osteoarthrosis, involving multiple sites [facility] Diagnosis Chronic low back pain with sciatica, sciatica laterality unspecified, unspecified back pain laterality [facility] Diagnosis Stage 3 severe COPD by GOLD classification ([facility])- Primary Generalized osteoarthrosis, involving multiple sites Chronic low back pain with sciatica, sciatica laterality unspecified, unspecified back pain laterality Essential hypertension, benign Tobacco use disorder Dysthymic disorder [facility]* Diagnosis Chronic low back pain with sciatica, sciatica laterality unspecified, unspecified back pain laterality [facility] Diagnosis Chronic low back pain with sciatica, sciatica laterality unspecified, unspecified back pain laterality Chronic obstructive pulmonary disease, unspecified COPD type (HCC) [facility] Diagnosis Stage 3 severe COPD by GOLD classification ([facility]) [facility] Diagnosis Chronic low back pain with sciatica, sciatica laterality unspecified, unspecified back pain laterality [facility] Diagnosis Oral infection- Primary Other and unspecified diseases of the oral soft tissues [facility] Diagnosis Chronic low back pain with sciatica, sciatica laterality unspecified, unspecified back pain laterality- Primary Essential hypertension, benign Generalized anxiety disorder Depression, unspecified depression type Gastroesophageal reflux disease without esophagitis Esophageal reflux documented in this encounter [facility] note* Diagnosis Chronic low back pain with sciatica, sciatica laterality unspecified, unspecified back pain laterality Thrush, oral Candidiasis of mouth documented in this encounter [facility] note* Diagnosis Generalized osteoarthrosis, involving multiple sites documented in this encounter [facility] note* Diagnosis Encounter for screening mammogram for breast cancer documented in this encounter [facility] note* Diagnosis Chronic low back pain with sciatica, sciatica laterality unspecified, unspecified back pain laterality documented in this encounter [facility] note* Diagnosis Esophageal reflux documented in this encounter [facility] note* Diagnosis Chronic obstructive pulmonary disease, [...] malignant neoplasms, colon documented in this encounter [facility] note* Diagnosis Chronic low back pain with sciatica, sciatica laterality unspecified, unspecified back pain laterality documented in this encounter [facility] note* Diagnosis Onset Date Resolution Status Admit Date Anxiety and depression acute Ju 2024 4:06am COPD with acute exacerbation chronic September 29, 2024 4:06am [facility] Work Phone: Evaluation note* Diagnosis Chronic low back pain with sciatica, sciatica laterality unspecified, unspecified back pain laterality documented in this encounter [facility] note* Diagnosis Stage 3 severe COPD by GOLD classification ([facility]) Chronic low back pain with sciatica, sciatica laterality unspecified, unspecified back pain laterality documented in this encounter [facility] note* Diagnosis Stage 3 severe COPD by GOLD classification (HCC)- Primary Chronic low back pain with sciatica, sciatica laterality unspecified, unspecified back pain laterality Essential hypertension, benign Tobacco use disorder Generalized anxiety disorder Aortic valve stenosis, etiology of cardiac valve disease unspecified documented in this encounter [facility] note* Diagnosis Stage 3 severe COPD by GOLD classification ([facility])- Primary Generalized osteoarthrosis, involving multiple sites Generalized anxiety disorder Chronic low back pain with sciatica, sciatica laterality unspecified, unspecified back pain laterality documented in this encounter [facility] note* Diagnosis Stage 3 severe COPD by GOLD classification (HCC)- Primary Chronic low back pain with sciatica, sciatica laterality unspecified, unspecified back pain laterality documented in this encounter [facility] note* Diagnosis NO SHOW- Primary Stage 3 severe COPD by GOLD classification (HCC) Generalized osteoarthrosis, involving multiple sites Generalized anxiety disorder Chronic low back pain with sciatica, sciatica laterality unspecified, unspecified back pain laterality documented in this encounter [facility] note* Diagnosis Stage 3 severe COPD by GOLD classification (HCC) documented in this encounter [facility] note* Diagnosis No-show for appointment- Primary Stage 3 severe COPD by GOLD classification (HCC) Chronic low back pain with sciatica, sciatica laterality unspecified, unspecified back pain laterality documented in this encounter [facility] note* Diagnosis Palliative care by specialist- [...] Other chronic pain 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 documented in this encounter [facility] note* Diagnosis Stage 3 severe COPD by GOLD classification (HCC) documented in this encounter [facility] note* Diagnosis Severe aortic stenosis- Primary Aortic valve disorders Chronic respiratory failure with hypoxia (HCC) [facility] Diagnosis Preop cardiovascular exam- Primary Pre-operative cardiovascular examination Nonrheumatic aortic valve stenosis Preop cardiovascular exam- Primary Pre-operative cardiovascular examination [facility] Diagnosis Itching- Primary Unspecified pruritic disorder documented in this encounter [facility] note* Diagnosis Preop cardiovascular exam- Primary Pre-operative cardiovascular examination Preop cardiovascular exam Pre-operative cardiovascular examination Aortic valve stenosis, etiology of cardiac valve disease unspecified Preop cardiovascular exam Pre-operative cardiovascular examination documented [facility] encounter [facility] HealthHistory and physical note Author José Smith [facility] July 20, 2023 4:55am Note Date/Time July 20, 2023 4:2 4am [facility] Medical Records Department [address] [place] [address] H&P Exam - Hospitalist 07/20/23 0406 MR#: [id number] Acct: [id number] Name: DENIA GONZALEZ Rep #:[id number] : 1955 68 From: José Abeeb DO PCP: Dr. Yoseph Fall MD Status:AD M IN Location: [facility] [id number] HPI - General General Date of Admission: [...] anxiety, GERD and OA who presents to [facility] ER complaining of shortness of breath, [...] increased use of her nebulizers and a Z-Alban started by her primary care physician yesterday. Sheadmits to subjective fevers and worsening cough and wheezing that caused her to activate EMS. She denies associated chills, nausea, vomiting, leg pain, leg swelling, chest pain or hemoptysis. She admits her symptoms are similar to her previous COPD exacerbations. In the ER she was diagnosed with acute exacerbation of COPD with clinical evidence of [id number] hypoxic respiratory insufficiency likely due to recent viral URI in the setting of ongoing tobacco abuse and she was then admitted to the general medical floor forongoing care for stay that is expected to be greater than 48 hours. PFSH Home Medications albuterol sulfate 90 mcg/actuation [...] % (Auto) 67.5, Lymph % (Auto) 23.7, Aiken% (Auto) 7.6, Eos % (Auto) 0.6, Baso [...] needed nebulizers. Give Tylenol as needed for [id number](level 1- 5/10) pain or fever. Continue Percocet prn for severe (level 6-10/10) pain. Tobacco cessation will be strongly encouraged with nicotine patch offeredto control cravings. 2. Viral URI likely triggering #1 - Check viral respiratory panel and placed oncontact and droplet precautions until confirmed negative. 3. Lfalo-ch-pggvedj hypoxic respiratory insufficiency arising from #1 & [...] 55 minutes. Charges/Coding Visit Charges Inpatient E&M: 62669 Init Hosp L2 07/20/23 0455 <Electronically signed by José Cunningham DO> Cosigner Signature (if applicable): CC: Dr. José Cunningham DO; Dr. Yoseph Fall MD~ Signed [facility] Work Phone: History and physical note Author Dionne Porter [facility] Note Date/Time September 29, 2024 4:32a m [facility] Medical Records Department [address] [place] [address] H&P Exam - Hospitalist 09/29/24 0403 MR#: [id number] Acct: [id number] Name: DENIA GONZALEZ Rep #:[id number] : 1955 69 From: Dionne Porter MD [...] allergic rhinitis, HTN who presents to the [facility] ED on 09/29/2024 with history of [...] 78.5 H, Lymph % (Auto) 13.2 L, Aiken % (Auto) 6.9, Eos % (Auto) 0.7, [...] allergic rhinitis, HTN who presents to the [facility] ED on 09/29/2024 with history of [...] Code status. Charges/Coding Visit Charges Inpatient E&M: 53847 Init Hosp L3 09/29/24 0431 <Electronically signed by Dionne Porter MD> Cosigner Signature (if applicable): CC: Dr. Dionne Porter MD; Dr. Yoseph Fall MD~ Signed [facility] Work Phone: History and physical note Author Dionne Porter [facility] Note Date/Time December 26, 2024 8:21pm [facility] Medical Records Department [address] [place] [address] H&P Exam - Hospitalist 12/26/241955 MR#: [id number] Acct: [id number] Name: DENIA GONZALEZ Rep #:[id number] : 1955 69 From: Dionne Porter MD PCP: Dr. Yoseph Fall MD Status:AD M IN Location: [facility] [id number] HPI - General General Date of [...] allergic rhinitis, HTN who presents to the [facility] ED on 12/26/2024 with history of 3 to 4 days of progressively worsening fatigue, malaise, dyspnea with chest tightness and wheezing coupled unfortunately with significant panic attacks whenever she has been attempting to leave the house with a productive cough specifically of yellow sputum prompting ED evaluation be cautious. She does report that she is supposed to have a heart cath at [facility] in the next several weeks because of [...] BUN/creatinine 16/0.64, GFR 96, glucose 112, initial emblberm43 with repeat delta 25, chest x-ray with [...] 1 and Solu-Medrol 125 mg IVx 1. [facility] Medical History Afib Aortic valve stenosis RLS [...] 83.2 H, Lymph % (Auto) 11.3 L, Aiken % (Auto) 4.5, Eos % (Auto) 0.1, [...] acute abnormality. No significant change Reading [facility] Assessment & Plan Assessment/Plan (1) COPD with acute exacerbation: PLAN: Plan The patient is a 69 y/o F w/ PMHx: Valvular Heart Disease, GERD, RLS, Anxiety and Depression, Former tobacco use, Former EtOH Abuse, Hx Non-small cell lung cancer status post right lung lobectomy remotely 2003, COPD/Asthma with Chronic Hypoxic Respiratory Failure (2L NC) with allergic rhinitis, HTN who presents to the [facility] ED on 12/26/2024 with history of [...] with plan as noted for evaluation at [facility] with upcoming cardiac catheterization for consideration of [...] 16 minutes. Charges/Coding Visit Charges Inpatient E&M: 97087 Init Hosp L3 Procedures Hospitalists Procedures: 64872 Advncd Care Plan 30 Min 12/26/242020 <Electronically signed by Dionne Porter MD> Cosigner Signature (if applicable): CC: Dr. Dionne Porter MD; Dr. Yoseph Fall MD~ Signed [facility] Work Phone: Hospital Discharge instructions Additional [...] needed for your shortness of breath and wheezing.[facility] Work Phone: Hospital Discharge instructionsAdditional Instructions DISCHARGE INSTRUCTIONS PLEASE READ *Please take this with you to your next doctors appointment* - You will need to continue outpatient evaluation for your aortic valve possibly needing replaced - You wear receiving low doses of Xanax as needed for your panic attacks related to your breathing, a prescription will be sent for several days however using this and continuation at the discretion of physician assuming care - You have been restarted on a low-dose of Lasix as it appears were supposed to be taking this at home and did require Lasix several times during her admission - Due to the Lasix and several low potassium you have been started on a low-dose of potassium supplementation -You will be discharged on a prednisone taper: -60 mg daily x3 days -50mg daily x3 days -40mg daily x3 days -30mg daily x3 days -20mg daily x3 days -10mg daily x3 days - You will also be discharged on an additional 4 days of Levaquin with next dose 02/01 -Please call your primary care provider's office upon discharge to schedule a hospital follow up within 1 week. -For any concerning signs or symptoms please call 911 or proceed to the nearest emergency department Date of Discharge: 01/31/25[facility] Work Phone: Progress note Author Ingris Irwin [facility] Note Date/Time February 08, 2025 1 0:30am [facility] [address] [place] [address] OFFICE VISIT Date of Service: 02/08/25 MR#: [id number] Acct: [id number] Name: DENIA GONZALEZ Rep #: [id number] : 1955 Provider: STEFANIE Irwin Age/Sex: 69/F Location: [facility] Status: Signed HPI HPI History of Present Illness Details: Denia Gonzalez is a 69-year-old female who presents to the office today for a cardiovascular follow-up visit. She was admitted to [facility] on September 29, 2024 and discharged [...] was started on Multaq, carvedilol and verapamil inaddition to Eliquis. She has a history of severe aortic stenosis, COPD, atrial fibrillation, GI bleed, Hypertension, anxiety and depression. She had undergone a cardiac catheterization at [facility] to evaluate her severe symptomatic aortic stenosis. Will obtain those records. She states this has not been performed yet. She presented to the ED by EMS on 01/25/2025 due to increased respiratory difficulty and was noted to be in a. fib with RVR at 105bpm. She became hypercapnic and unresponsive in the ED and was admitted and intubated on 01/25/2025 where she was treated for pneumonia. She was then extubated on 01/27/2025 and discharged to a SNF on 01/31/2025. She is currently on palliativecare and uses 3L Oxygen at baseline. From a cardiac standpoint, the patient is doing well. She does acknowledge palpitations. She attributes this to her anxiety, as she has "really bad anxietyattacks." She does acknowledge chest pressure. She denies chest pain, or heaviness. She does acknowledge SOB-she is currently on 3L of oxygen. She deniesOrthopnea, and PND. She does not have bleeding issues; no blood in urine, stool,or nosebleeds. She denies any decrease in energy level, myalgias, or claudication. She does acknowledge pedal and ankle edema. She does not have sudden weight gain. She does acknowledge occasional lightheadedness. She denies dizziness, syncopal or near syncopal episodes, and headaches. She states that she was scheduled for a dental appointment prior to her valve surgery, and thoseappointments were cancelled due to her being in the hospital. She is unsure if these were rescheduled. 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: No Is patient in pain?: No Allergies No Known Allergies Allergy (Verified 02/12/25 08:52) Medications ?Medication ?Instructions ?Recorded ?Confirmed ?Type albuterol sulfate 90 mcg/actuation 1 - 2 puff inhalati on Q4H PRN PRN 04/18/13 02/12/25 History aerosol inhaler (Ventolin HFA) Bronchodialation montelukast 10 mg tablet 10 mg PO DAILY allergies 02/12/25 History tiotropium bromide 18 mcg capsule 1 puff inhalation DA BINU wheezing 04/18/13 02/12/25 History with inhalation device (Spiriva with HandiHaler) Oxygen, Home [Home Oxygen] 2.5 lpm PRN PRN Dyspnea 02/12/25 History sertraline 100 mg tablet 100 mg PO BID mood 10/22/13 02/12/25 History Ropinirole Hcl 0.25 mg PO QHS restless legs 09/23/14 02/12/25 History ipratropium 0.5 mg-albuterol 3 mg 3 ml inhalation Q4HW A.RT wheezing 05/13/16 02/12/25 Rx (2.5 mg base)/3 mL nebulization ##30 soln cholecalciferol (vitamin D3) 50 50 mcg PO DAILY vitami n 10/18/23 02/12/25 History mcg (2,000 unit) capsule (Vitamin D3) ipratropium 0.5 mg-albuterol 3 mg 3 ml inhalation Q6H PRN shortness 10/18/23 02/12/25 Rx (2.5 mg base)/3 mL nebulization of breath or wheezing #180 mL soln buspirone 10 mg tablet 10 mg PO BID anxiety 5 02/12/25 History hydrocodone-acetaminophen 5-325mg 1 tab PO BID PRN PRN pain 10/03/24 02/12/25 History 5mg-325mg nicotine 14 mg/24 hr daily 14 mg transdermal DAILY prn #28 ea 10/09/24 02/12/25 Rx transdermal patch apixaban 5 mg tablet (Eliquis) 5 mg PO BID blood thinn e #60 tabs 11/03/24 02/12/25 Rx carvedilol 6.25 mg tablet 6.25 mg PO BID bp #60 tabs 0 11/03/24 02/12/25 Rx furosemide 20 mg tablet 20 mg PO DAILY fluid overloa d 12/27/24 02/12/25 History pantoprazole 40 mg tablet,delayed 40 mg PO BID GERD #6 0 tabs 12/30/24 02/12/25 Rx release verapamil 180 mg 24 hr 180 mg PO BID #60 caps 02/12/25 Rx capsule,extended release OXYGEN - Supplemental ([facility] hypoxia 01/27/25 02/12/25 H istory INFORMATIONAL USE ONLY) alprazolam 0.25 mg tablet 0.25 mg PO Q6H PRN PRN Anxie ty 3 01/31/25 02/12/25 Rx days #12 tabs potassium chloride 10 mEq 10 meq PO DAILYCM 30 days #0 tabs 01/31/25 02/12/25 Rx tablet,extended release(part/cryst) prednisone 20 mg tablet See Taper PO BREAKFAST #32 t abs 01/31/25 02/12/25 Rx bisacodyl 10 mg rectal suppository 10 mg GA ONCE 02/0802/12/25 History cyanocobalamin (vitamin B-12) 500 500 mcg PO QDAY 01/2402/12/25 History mcg tablet Ejection fraction %: 70 Have you fallen in the past year?: Yes [facility] Medical History (Reviewed 02/12/25 @ 08:52 by Ingris Irwin SOUND EFFECTS TECHNICIAN, SOUND EFFECTS TECHNICIAN-C) Palliative care encounter Acute anemia Acute respiratory insufficiency Anxiety Anxiety and depression Respiratory insufficiency COPD with acute exacerbation Afib Aortic valve stenosis RLS (restless legs [...] not use ROS Const Const: Negative for fatigue, weakness, headache(s) or frequent falls Eyes Eyes: Negative for blurry vision ENT ENT: Negative for headache(s), dizziness or Nosebleed/epistaxis Cardio Chest Pain: Yes (chest pressure) Palpitations: Yes Edema: Bilateral Muscle aches with walking: None Resp Respiratory: Positive for SOB with activity and SOB at rest; Negative for SOB orthopnea\\SOB lying down GI GI: Negative nausea, vomiting, heartburn, bright, red blood in stools or black,tarry stools : Negative for hematuria Neuro Neuro: Positive for lightheadedness; Negative for dizziness, near syncope, syncope, frequent falls, headache(s), weakness or blurry vision Endo Endo: Negative for fatigue Cardiology Exam Const Appearance: cooperative, comfortable, no acute distress and disheveled Nutritional Appearance: average body habitus Orientation: alert, awake and oriented x3 on O2, in WC Head Head: normal to inspection Ears: hearing grossly normal bilaterally Nose: external nose normal Face and Sinus: face symmetric Teeth and gingiva: poor dentition Eyes General: appearance normal, both eyes and all related structures Eyelids: eyelids normal Conjunctivae: conjunctivae normal Pupils: PERRL EOM: EOM intact bilaterally Neck Neck: normal visual inspection and trachea midline; Negative no JVD Carotids: Negative bruit Chest Chest inspection: normal inspection of the chest Auscultation: Bilateral: Diminished Lung Sounds Cardio Palpation: normal PMI Rate: regular rate Rhythm: regular rhythm Heart sounds: S1 normal, S2 normal and murmur; Negative rub or gallop Murmur: Grade 3/6, harsh and mid systolic GI GI: normal to inspection and soft Neuro General: patient alert, patient awake, patient oriented x3 and CN's II-XI intactbilaterally Extremities Pulses: Normal: Right Posterior Tibial Pulse, Left Posterior Tibial Pulse, RightRadial Pulse and Left Radial Pulse Lower Extremity Edema: None: Bilateral Psych Psychological: normal affect Supplemental Info Supplemental Information Echo Complete 09/2024 Interpretation Summary Severe concentric left ventricular hypertrophy. The LV systolic function is normal. EF is 70 %. Stage 1 diastolic dysfunction. Mild tricuspid valve insufficiency. Severely calcified aortic valve. Severe aortic valve stenosis. Mean peak gradient 50 mmHg. Aortic valve area 0.85 cm??. Trivial aortic valve regurgitation. The study was technically difficult. Labs: Triglycerides, (-199) 135 mg/dL Diagnostics: Electrocardiogram Echocardiogram Chest X-Ray Chest CTA Abdomen/Pelvis CT Past Visits: Cardiology Visit 02/08/25 Assessment and Plan Assessment and Plan (1) Afib: Status: Chronic Qualifiers: Atrial fibrillation type: paroxysmal Qualified Code(s): I48.0 - Paroxysmal atrial fibrillation Plan: Patient has a history of atrial fibrillation. Patient's echocardiogram from 2024 demonstrated ejection fraction of 70%, and normal atrial size. Her EKG from today demonstrates normal sinus rhythm heart rate 81 bpm, QT/QTc: 350/421. Unfortunately, patient's [facility] does not have Multaq. Discussed with Dr. Madrid?amiodarone would not be appropriate due to her lung disease. Due to patient being in normal sinus rhythm the decision was made to discontinue Multaq, and continue with rate therapy. She will continue verapamil 180 mg twice daily, and carvedilol 6.25 mg twice daily. She will continue Eliquis 5 mgtwice daily. She will continue to monitor for any concerning symptoms of atrialfibrillation. (2) Aortic valve stenosis: Status: Acute Qualifiers: Cardiac valve disease etiology: nonrheumatic Qualified Code(s): I35.0 - Nonrheumatic aortic (valve) stenosis Plan: Patient has a history of aortic valve stenosis. This was noted to be severe on an echocardiogram from September 2024. She states she underwent a cardiac catheterization from [facility], and is awaiting a TAVR. Will obtain those records. She will continue to follow-up with [facility], and continue to monitor for any concerning symptoms. (3) Benign essential hypertension: Status: Chronic Plan: Patient has a history of hypertension. Her blood pressure is well-controlled atthis time?105/63. She will continue carvedilol 6.25 mg twice daily, furosemide 20 mg daily, and verapamil 180 mg twice daily. She will continue to monitor blood pressures at home, and notify our office of any persistently elevated or low blood pressure readings. Orders: Orders 12 Lead EKG performed by [facility] 02/08/25 I48.0 - Paroxysmal atrial fibrillation Plan Details Additional Comments: Patient will follow-up in 3 months, or sooner if needed. Thank you for allowing me to participate in the care of your patient. Please donot hesitate to call if any issues arise. This note was generated using a voice recognition system and there may be incorrect words, spelling, or punctuation that were not noted when reviewing theoffice note prior to saving. Portions of this documentation were copied and pasted from previous office visitnotes to provide cohesive continuity of the history. The note has been reviewed,edited, and updated, as necessary. Follow Up: 3 Months (SOUND EFFECTS TECHNICIAN/PA) Please obtain most recent cardiac cath results from [facility]-Dr. Shea Coding Level of Care Code Off vis,est,level 4 Diagnoses Paroxysmal atrial fibrillation I48.0 Atrial fibrillation type: paroxysmal Nonrheumatic aortic valve stenosis I35.0 Cardiac valve disease etiology: nonrheumatic Benign essential hypertension I10 Coding Level of Care Code Off vis,est,level 4 Diagnoses Paroxysmal atrial fibrillation I48.0 Atrial fibrillation type: paroxysmal Nonrheumatic aortic valve stenosis I35.0 Cardiac valve disease etiology: nonrheumatic Benign essential hypertension I10 Clinical Quality Measures Falls Risk Screening/Assistive Devices Have you fallen in the past year?: Yes Cardiac Ejection fraction %: 70 02/12/25 1120 <Electronically signed by Ingris Irwin SOUND EFFECTS TECHNICIAN SOUND EFFECTS TECHNICIAN-C> Date _ Ingris Dc SOUND EFFECTS TECHNICIAN SOUND EFFECTS TECHNICIAN-C Cosigner Signature: Date (if applicable) CC: ~ [facility] Work Phone: Reason for referral (narrative)* Outpatient Procedure (Routine) - Pending Review Specialty Diagnoses / Procedures Referred By Contac t Referred To Contact [facility] Diagnoses Chronic obstructive pulmonary disease, unspecified COPD type (HCC) Procedures OXIMETRY WITH AMBULATION NONINVASIVE EAR/PULSE OXIMETRY MULTIPLE Michelle Marie MD [address] [place] [address] Respiratory [place] [address] [place] [id number] Referral ID Status Reason Start Date Expiration Date Visits Requested Visits Authorized [id number] Pending Review Auto-Generat ed Referral 01/13/2022 02/12/2023 1 1 [facility] for referral (narrative)* Diagnostic Procedure Only (Routine) - Pending Review Specialty Diagnoses / Procedures Referred By Contac t Referred To Contact [facility] Diagnoses Encounter for screening mammogram for breast cancer Procedures MICKIE SCREENING SCREENING MAMMOGRAPHY BI 2-VIEW BREAST INC CAD Yoseph Fall MD [address] [place] [address] [facility] [address] [place] [id number] Referral ID Status Reason Start Date Expiration Date Visits Requested Visits Authorized [id number] Pending Review Auto-Generat ed Referral 06/16/2023 07/15/2024 1 1 [facility] for referral (narrative)No reason for referral information [facility] Work Phone: Reason for visit Narrative* Auth/Cert (Routine) Specialty Diagnoses / Procedures Referred By Contac t Referred To Contact Diagnoses Preop cardiovascular exam Preop cardiovascular exam [Z01.810] Procedures GA R & L HRT CATH WINJX HRT ART& L VENTR IMG Left and right heart cath / coronary angiography Zaria hSea MD [address] [place] [address] Phone: tel: fax: Referral ID Status Reason Start Date Expiration Date Visits Re quested Visits Authorized [id number]/15/2024 1 1 [facility] Advance Directives Documents on File Type Date Recorded Patient Shoe Stainer Expl anation Advance Directive(s) 08/04/2016 2:40 PM Advance Directive(s) 08/04/2016 3:52 PM Advance Directive(s) 06/21/2016 6:38 PM Documents on File Type Date Recorded Patient Shoe Stainer Expl anation Advance Directive(s) 08/04/2016 3:52 PM Documents on File Type Date Recorded Patient Shoe Stainer Expl anation Advance Directive(s) 08/04/2016 3:52 PM Advance Directive Response Recorded Date/ Time Advance Directives No May 08, 2016 10:32am Living Will No July 20, 2023 5:03am Power of Patent Chemist No July 19 5:03am Advance Directive Response Recorded Date/ Time Do you have a Healthcare Power of Patent Chemist? No September 29, 2024 2:42am Advance Directives No May 08, 2016 10:32am Advance Directive Response Recorded Date/ Time Do you have a Healthcare Power of Patent Chemist? No September 29, 2024 5:11am Advance Directives No May 08, 2016 10:32am Advance Directive Response Recorded Date/ Time Do you have a Healthcare Power of Patent Chemist? No September 29, 2024 5:11am Do you have a Healthcare Power of Patent Chemist? No December 26, 2024 4:37pm Advance Directives No May 08, 2016 10:32am Advance Directive Response Recorded Date/ Time Do you have a Healthcare Power of Patent Chemist? No September 29, 2024 5:11am Do you have a Healthcare Power of Patent Chemist? No December 26, 2024 9:29pm Advance Directives No May 08, 2016 10:32am Date Activated Date Inactivated Comments 01/05/2025 9:00 AM 01/05/2025 5:58 PM Date Activated Date Inactivated Comments 01/05/2025 9:00 AM 01/05/2025 5:58 PM Advance Directive Response Recorded Date/ Time Do you have a Healthcare Power of Patent Chemist? No September 29, 2024 5:11am Do you have a Healthcare Power of Patent Chemist? No December 26, 2024 9:29pm Do you have a Healthcare Power of Patent Chemist? No January 25, 2025 11:58am Advance Directives No May 08, 2016 10:32am Advance Directive Response Recorded Date/ Time Do you have a Healthcare Power of Patent Chemist? No December 26, 2024 9:29pm Do you have a Healthcare Power of Patent Chemist? No January 25, 2025 11:58am Advance Directives No May 08, 2016 10:32am Chief Complaint and Reason for Visit Chief Complaint ACUTE EXACERBATION O F COPD WITH [id number] Reason for Visit COPD (chronic obstru ctive pulmonary disease) Hypoxia Respiratory insufficiency Viral URI with cough COPD with acute exacerbation Chief Complaint ACUTE EXACERBATION O F COPD WITH [id number] ACUTE EXACERBATION OF COPD WITH [id number] ACUTE EXACERBATION OF COPD WITH [id number] Reason for Visit COPD (chronic obstru ctive [...] [facility] 10/09 New AFIB/Severe October 12:58pm Reason for Visit Admit Date Anxiety and depression September 29, 2024 11 :36am Aortic valve stenosis September 29, 2024 11: 36am Tachycardia September 29, 2024 11:36 am Afib September 29, 2024 11:36 am COPD with acute exacerbation September 29 025 11:36am Non-small cell lung cancer [address], 202 5 11:36am Aortic valve stenosis November 03, 2024 [...] 3:58 pm S/P [facility] /16 New AFIB/Severe October 12:58pm COPD EXACERBATION, ACUTE ANEMIA Septembe 2024 8:00pm SOB, Anxiety December 26, 2024 8:16pm Reason for Visit Admit Date Anxiety and depression September 29, 2024 11 :36am Aortic valve stenosis September 29, 2024 11: 36am Tachycardia September 29, 2024 11:36 am Afib September 29, 2024 11:36 am COPD with acute exacerbation September 29, 11:36am Non-small cell lung cancer September 29 [...] December 26, 2024 8:00pm Acute respiratory insufficiency Decembe 2024 8:00pm Anxiety December 26, 2024 8:00pm [...] EXACERBATION, ACUTE ANEMIA Septembe r 2024 1:46pm Chief Complaint Admit Date Shortness of breath [...] 3:58 pm S/P [facility] 6/16 New AFIB/Severe October 12:58pm COPD EXACERBATION, ACUTE [...] EXACERBATION, ACUTE ANEMIA Septembe r 2024 1:46pm COPD EXACERBATION, ACUTE ANEMIA Septembe r 2024 11:42am sob January 25, 2025 8: 24am Reason for Visit Admit Date Aortic valve stenosis September 29, 2024 11: 36am Tachycardia September 29, 2024 11:36 am Afib September 29, 2024 11:36 am Non-small cell lung cancer September 29 11:36am Anxiety and depression September 29, 2024 11 :36am COPD with acute exacerbation September 29 11:36am Aortic valve stenosis November 03, 2024 12 :58pm Afib November 03, 2024 12:5 8pm Benign essential hypertension November 03, 2024 12:58pm Acute anemia December 26, 2024 8:00pm Acute respiratory insufficiency Decembe 2024 8:00pm Anxiety December 26, 2024 8:00pm Anxiety and depression December 26 8:00pm COPD with acute exacerbation December [id number] 8:00pm Palliative care encounter December 26, 2024 8:00pm Respiratory insufficiency December 26, 2024 8:00pm Chief Complaint Admit Date Shortness of [...] EXACERBATION, ACUTE ANEMIA Septembe r 2024 1:46pm COPD EXACERBATION, ACUTE ANEMIA Septembe r 2024 11:42am ACUTE ON CHR RESP FAILURE January 25 10:04am ACUTE ON CHR RESP FAILURE January 25 11:47am Reason for Visit Admit Date Aortic valve stenosis September 29, 2024 11: 36am Tachycardia September 29, 2024 11:36 am Afib September 29, 2024 11:36 am Non-small cell lung cancer September 29 11:36am Anxiety and depression September 29, 2024 11 :36am COPD with acute exacerbation [address], 2 025 11:36am Aortic valve stenosis November 03, 2024 12 :58pm Afib November 03, 2024 12:5 8pm Benign essential hypertension November 03, 2024 12:58pm Acute anemia December 26, 2024 8:00pm Acute respiratory insufficiency Septembe 2024 8:00pm Anxiety December 26, 2024 8:00pm Anxiety and depression December 26 8:00pm COPD with acute exacerbation December [id number] 8:00pm Palliative care encounter December 26, 2024 8:00pm Respiratory insufficiency December 26, 2024 8:00pm Acute respiratory failure January 25 10:04am Anticoagulated on apixaban January 25, 2025 10:04am Aortic valve stenosis January 25, 2025 10:04am Pneumonia January 25, 2025 10 :04am Tachycardia January 25, 2025 10 :04am Chronic anemia January 25, 2025 10 :04am Chief Complaint Admit Date COPD EXACERBATION September 29, 2024 11:36 am COPD EXACERBATION October 03, 2024 8:40 am [...] EXACERBATION, ACUTE ANEMIA Septembe r 2024 1:46pm COPD EXACERBATION, ACUTE ANEMIA Septembe r 2024 11:42am ACUTE ON CHR RESP FAILURE January 25, 2 025 10:04am ACUTE ON CHR RESP FAILURE January 25, 2 025 11:47am ACUTE ON CHR RESP FAILURE January 26, 2 025 12:30am ACUTE ON CHR RESP FAILURE January 26, 2 025 7:24am ACUTE ON CHR RESP FAILURE January 26, 2 025 2:58pm ACUTE ON CHR RESP FAILURE January 27, 2 025 7:43am ACUTE ON CHR RESP FAILURE January 28, 2 025 7:15am ACUTE ON CHR RESP FAILURE January 29, 2 025 6:52am ACUTE ON CHR RESP FAILURE January 29, 2 025 7:43am ACUTE ON CHR RESP FAILURE January 30, 2 025 2:25pm ACUTE ON CHR RESP FAILURE January 31, 2 025 3:00pm Reason for Visit Admit Date Anxiety and depression September 29, 2024 11 :36am Aortic valve stenosis September 29, 2024 11: 36am Tachycardia September 29, 2024 11:36 am Afib September 29, 2024 11:36 am Non-small cell lung cancer September 29 11:36am COPD with acute exacerbation September 29 11:36am Aortic valve stenosis November 03, 2024 12 :58pm Afib November 03, 2024 12:5 8pm Benign essential hypertension November 03, 2024 12:58pm Anxiety and depression December 26 8:00pm Acute anemia December 26, 2024 8:00pm Acute respiratory insufficiency Septembe r 2024 8:00pm Anxiety December 26, 2024 8:00pm COPD with acute exacerbation December [id number] 8:00pm Palliative care encounter December 26, 2024 8:00pm Respiratory insufficiency December 26, 2024 8:00pm Acute exacerbation of chroni c obstructive pulmonary disease January 25, 2025 10:04am Acute respiratory failure January 25, 10:04am Anticoagulated on [email or web address] January 25, 2025 10:04am Aortic valve stenosis January 25, 2025 10:04am Multifocal pneumonia January 25, 2025 1 0:04am Pneumonia January 25, 2025 10 :04am Tachycardia January 25, 2025 10 :04am Afib January 25, 2025 10 :04am Chronic anemia January 25, 2025 10 :04am Chief Complaint Admit Date S/P [facility] 10/09 New [...] EXACERBATION, ACUTE ANEMIA Septembe r 2024 1:46pm COPD EXACERBATION, ACUTE ANEMIA Septembe r 2024 11:42am ACUTE ON CHR RESP FAILURE January 25, 2 025 10:04am ACUTE ON CHR RESP FAILURE January 25, 2 025 11:47am ACUTE ON CHR RESP FAILURE January 26, 2 025 12:30am ACUTE ON CHR RESP FAILURE January 26, 2 025 7:24am ACUTE ON CHR RESP FAILURE January 26, 2 025 2:58pm ACUTE ON CHR RESP FAILURE January 27, 2 025 7:43am ACUTE ON CHR RESP FAILURE January 28, 2 025 7:15am ACUTE ON CHR RESP FAILURE January 29, 2 025 6:52am ACUTE ON CHR RESP FAILURE January 29, 2 025 7:43am ACUTE ON CHR RESP FAILURE January 30, 2 025 2:25pm ACUTE ON CHR RESP FAILURE January 31, 2 025 3:00pm LAB WORK February 01, 2025 5: 00am S/P ([facility] 01/31) February 08, 2025 9 :23am USP LAB WORK February 13, 2025 4:00am Reason for Visit Admit Date Aortic valve stenosis November 03, 2024 12 :58pm Afib November 03, 2024 12:5 8pm Benign essential hypertension November 03, 2024 12:58pm Anxiety and depression December 26 8:00pm Acute anemia December 26, 2024 8:00pm Acute respiratory insufficiency Septembe r 2024 8:00pm Anxiety December 26, 2024 8:00pm COPD with acute exacerbation December [id number] 8:00pm Palliative care encounter December 26, 2024 8:00pm Respiratory insufficiency December 26, 2024 8:00pm Acute exacerbation of chroni c obstructive pulmonary disease January 25, 2025 10:04am Anticoagulated on apixaban January 25, 2025 10:04am Aortic valve stenosis January 25, 2025 10:04am Multifocal pneumonia January 25, 2025 1 0:04am Pneumonia January 25, 2025 10 :04am Afib January 25, 2025 10 :04am Chronic anemia January 25, 2025 10 :04am Acute respiratory failure January 25 025 10:04am Tachycardia January 25, 2025 10 :04am Aortic valve stenosis February 08, 2025 9:23am Afib February 08, 2025 9 :23am Benign essential hypertension February 082024 9:23am Family History Relationship Condition Age at Onset [...] involving multiple sites Iman Person APRN.CNP [address] [place] [address] Referral ID Status Reason Start Date Expiration Date V isits Requested Visits Authorized [id number] Pending Review 1 1 Specialty Diagnoses / Procedures Referred By Contac t Referred To Contact Diagnoses Generalized osteoarthrosis, involving multiple sites Yoseph Fall MD [address] [place] [address] Referral ID Status Reason Start Date Expiration Date V isits Requested Visits Authorized [id number] Pending Review 1 1 Referral ID Status Reason Start Date Expiration Date V isits Requested Visits Authorized [id number] Pending Review 1 1 Summary Purpose Additional Source Comments Source Comments (unrecognize d section and content) In the event this informatio n is protected by the [facility] Confidentiality of Alcohol and Drug Abuse Patient Records regulations: The Federal rules restrict any use of the information to criminally investigate or prosecute any alcohol or drug abuse patient.[facility] the event this information is protected by the Federal Confidentiality of Alcohol and Drug Abuse Patient Records regulations: The Federal rules restrict any use of the information to criminally investigate or prosecute any alcohol or drug abuse patient.[facility] HospitalIn the event this information is protected by the Federal Confidentiality of Alcohol and Drug Abuse Patient Records regulations: The Federal rules restrict any use of the information to criminally investigate or prosecute any alcohol or drug abuse patient.[facility] HospitalIn the event this information is protected by the Federal Confidentiality of Alcohol and Drug Abuse Patient Records regulations: The Federal rules restrict any use of the information to criminally investigate or prosecute any alcohol or drug abuse patient.[facility] HospitalIn the event this information is protected by the Federal Confidentiality of Alcohol and Drug Abuse Patient Records regulations: The Federal rules restrict any use of the information to criminally investigate or prosecute any alcohol or drug abuse patient.[facility] HospitalIn the event this information is protected by the Federal Confidentiality of Alcohol and Drug Abuse Patient Records regulations: The Federal rules restrict any use of the information to criminally investigate or prosecute any alcohol or drug abuse patient.[facility] HospitalIn the event this information is protected by the Federal Confidentiality of Alcohol and Drug Abuse Patient Records regulations: The Federal rules restrict any use of the information to criminally investigate or prosecute any alcohol or drug abuse patient.[facility] HospitalIn the event this information is protected by the Federal Confidentiality of Alcohol and Drug Abuse Patient Records regulations: The Federal rules restrict any use of the information to criminally investigate or prosecute any alcohol or drug abuse patient.[facility] HospitalIn the event this information is protected by the Federal Confidentiality of Alcohol and Drug Abuse Patient Records regulations: The Federal rules restrict any use of the information to criminally investigate or prosecute any alcohol or drug abuse patient.[facility] HospitalIn the event this information is protected by the Federal Confidentiality of Alcohol and Drug Abuse Patient Records regulations: The Federal rules restrict any use of the information to criminally investigate or prosecute any alcohol or drug abuse patient.[facility] HospitalIn the event this information is protected by the Federal Confidentiality of Alcohol and Drug Abuse Patient Records regulations: The Federal rules restrict any use of the information to criminally investigate or prosecute any alcohol or drug abuse patient.[facility] HospitalIn the event this information is protected by the Federal Confidentiality of Alcohol and Drug Abuse Patient Records regulations: The Federal rules restrict any use of the information to criminally investigate or prosecute any alcohol or drug abuse patient.[facility] HospitalIn the event this information is protected by the Federal Confidentiality of Alcohol and Drug Abuse Patient Records regulations: The Federal rules restrict any use of the information to criminally investigate or prosecute any alcohol or drug abuse patient.[facility] HospitalIn the event this information is protected by the Federal Confidentiality of Alcohol and Drug Abuse Patient Records regulations: The Federal rules restrict any use of the information to criminally investigate or prosecute any alcohol or drug abuse patient.[facility] HospitalIn the event this information is protected by the Federal Confidentiality of Alcohol and Drug Abuse Patient Records regulations: The Federal rules restrict any use of the information to criminally investigate or prosecute any alcohol or drug abuse patient.[facility] HospitalIn the event this information is protected by the Federal Confidentiality of Alcohol and Drug Abuse Patient Records regulations: The Federal rules restrict any use of the information to criminally investigate or prosecute any alcohol or drug abuse patient.[facility] HospitalIn the event this information is protected by the Federal Confidentiality of Alcohol and Drug Abuse Patient Records regulations: The Federal rules restrict any use of the information to criminally investigate or prosecute any alcohol or drug abuse patient.[facility] HospitalIn the event this information is protected by the Federal Confidentiality of Alcohol and Drug Abuse Patient Records regulations: The Federal rules restrict any use of the information to criminally investigate or prosecute any alcohol or drug abuse patient.[facility] HospitalIn the event this information is protected by the Federal Confidentiality of Alcohol and Drug Abuse Patient Records regulations: The Federal rules restrict any use of the information to criminally investigate or prosecute any alcohol or drug abuse patient.[facility] HospitalIn the event this information is protected by the Federal Confidentiality of Alcohol and Drug Abuse Patient Records regulations: The Federal rules restrict any use of the information to criminally investigate or prosecute any alcohol or drug abuse patient.[facility] HospitalIn the event this information is protected by the Federal Confidentiality of Alcohol and Drug Abuse Patient Records regulations: The Federal rules restrict any use of the information to criminally investigate or prosecute any alcohol or drug abuse patient.[facility] HospitalIn the event this information is protected by the Federal Confidentiality of Alcohol and Drug Abuse Patient Records regulations: The Federal rules restrict any use of the information to criminally investigate or prosecute any alcohol or drug abuse patient.[facility] HospitalIn the event this information is protected by the Federal Confidentiality of Alcohol and Drug Abuse Patient Records regulations: The Federal rules restrict any use of the information to criminally investigate or prosecute any alcohol or drug abuse patient.[facility] HospitalIn the event this information is protected by the Federal Confidentiality of Alcohol and Drug Abuse Patient Records regulations: The Federal rules restrict any use of the information to criminally investigate or prosecute any alcohol or drug abuse patient.[facility] HospitalIn the event this information is protected by the Federal Confidentiality of Alcohol and Drug Abuse Patient Records regulations: The Federal rules restrict any use of the information to criminally investigate or prosecute any alcohol or drug abuse patient.[facility] HospitalIn the event this information is protected by the Federal Confidentiality of Alcohol and Drug Abuse Patient Records regulations: The Federal rules restrict any use of the information to criminally investigate or prosecute any alcohol or drug abuse patient.[facility] HospitalIn the event this information is protected by the Federal Confidentiality of Alcohol and Drug Abuse Patient Records regulations: The Federal rules restrict any use of the information to criminally investigate or prosecute any alcohol or drug abuse patient.[facility] HospitalIn the event this information is protected by the Federal Confidentiality of Alcohol and Drug Abuse Patient Records regulations: The Federal rules restrict any use of the information to criminally investigate or prosecute any alcohol or drug abuse patient.[facility] HospitalIn the event this information is protected by the Federal Confidentiality of Alcohol and Drug Abuse Patient Records regulations: The Federal rules restrict any use of the information to criminally investigate or prosecute any alcohol or drug abuse patient.[facility] HospitalIn the event this information is protected by the Federal Confidentiality of Alcohol and Drug Abuse Patient Records regulations: The Federal rules restrict any use of the information to criminally investigate or prosecute any alcohol or drug abuse patient.[facility] HospitalIn the event this information is protected by the Federal Confidentiality of Alcohol and Drug Abuse Patient Records regulations: The Federal rules restrict any use of the information to criminally investigate or prosecute any alcohol or drug abuse patient.[facility] HospitalIn the event this information is protected by the Federal Confidentiality of Alcohol and Drug Abuse Patient Records regulations: The Federal rules restrict any use of the information to criminally investigate or prosecute any alcohol or drug abuse patient.[facility] HospitalIn the event this information is protected by the Federal Confidentiality of Alcohol and Drug Abuse Patient Records regulations: The Federal rules restrict any use of the information to criminally investigate or prosecute any alcohol or drug abuse patient.[facility] HospitalIn the event this information is protected by the Federal Confidentiality of Alcohol and Drug Abuse Patient Records regulations: The Federal rules restrict any use of the information to criminally investigate or prosecute any alcohol or drug abuse patient.[facility] HospitalIn the event this information is protected by the Federal Confidentiality of Alcohol and Drug Abuse Patient Records regulations: The Federal rules restrict any use of the information to criminally investigate or prosecute any alcohol or drug abuse patient.[facility] HospitalIn the event this information is protected by the Federal Confidentiality of Alcohol and Drug Abuse Patient Records regulations: The Federal rules restrict any use of the information to criminally investigate or prosecute any alcohol or drug abuse patient.[facility] HospitalIn the event this information is protected by the Federal Confidentiality of Alcohol and Drug Abuse Patient Records regulations: The Federal rules restrict any use of the information to criminally investigate or prosecute any alcohol or drug abuse patient.[facility] HospitalIn the event this information is protected by the Federal Confidentiality of Alcohol and Drug Abuse Patient Records regulations: The Federal rules restrict any use of the information to criminally investigate or prosecute any alcohol or drug abuse patient.[facility] HospitalIn the event this information is protected by the Federal Confidentiality of Alcohol and Drug Abuse Patient Records regulations: The Federal rules restrict any use of the information to criminally investigate or prosecute any alcohol or drug abuse patient.[facility] HospitalIn the event this information is protected by the Federal Confidentiality of Alcohol and Drug Abuse Patient Records regulations: The Federal rules restrict any use of the information to criminally investigate or prosecute any alcohol or drug abuse patient.[facility] HospitalIn the event this information is protected by the Federal Confidentiality of Alcohol and Drug Abuse Patient Records regulations: The Federal rules restrict any use of the information to criminally investigate or prosecute any alcohol or drug abuse patient.[facility] HospitalIn the event this information is protected by the Federal Confidentiality of Alcohol and Drug Abuse Patient Records regulations: The Federal rules restrict any use of the information to criminally investigate or prosecute any alcohol or drug abuse patient.[facility] HospitalIn the event this information is protected by the Federal Confidentiality of Alcohol and Drug Abuse Patient Records regulations: The Federal rules restrict any use of the information to criminally investigate or prosecute any alcohol or drug abuse patient.[facility] HospitalIn the event this information is protected by the Federal Confidentiality of Alcohol and Drug Abuse Patient Records regulations: The Federal rules restrict any use of the information to criminally investigate or prosecute any alcohol or drug abuse patient.[facility] HospitalIn the event this information is protected by the Federal Confidentiality of Alcohol and Drug Abuse Patient Records regulations: The Federal rules restrict any use of the information to criminally investigate or prosecute any alcohol or drug abuse patient.[facility] HospitalIn the event this information is protected by the Federal Confidentiality of Alcohol and Drug Abuse Patient Records regulations: The Federal rules restrict any use of the information to criminally investigate or prosecute any alcohol or drug abuse patient.[facility] HospitalIn the event this information is protected by the Federal Confidentiality of Alcohol and Drug Abuse Patient Records regulations: The Federal rules restrict any use of the information to criminally investigate or prosecute any alcohol or drug abuse patient.[facility] HospitalIn the event this information is protected by the Federal Confidentiality of Alcohol and Drug Abuse Patient Records regulations: The Federal rules restrict any use of the information to criminally investigate or prosecute any alcohol or drug abuse patient.[facility] HospitalIn the event this information is protected by the Federal Confidentiality of Alcohol and Drug Abuse Patient Records regulations: The Federal rules restrict any use of the information to criminally investigate or prosecute any alcohol or drug abuse patient.[facility] HospitalIn the event this information is protected by the Federal Confidentiality of Alcohol and Drug Abuse Patient Records regulations: The Federal rules restrict any use of the information to criminally investigate or prosecute any alcohol or drug abuse patient.[facility] HospitalIn the event this information is protected by the Federal Confidentiality of Alcohol and Drug Abuse Patient Records regulations: The Federal rules restrict any use of the information to criminally investigate or prosecute any alcohol or drug abuse patient.[facility] HospitalIn the event this information is protected by the Federal Confidentiality of Alcohol and Drug Abuse Patient Records regulations: The Federal rules restrict any use of the information to criminally investigate or prosecute any alcohol or drug abuse patient.[facility] HospitalIn the event this information is protected by the Federal Confidentiality of Alcohol and Drug Abuse Patient Records regulations: The Federal rules restrict any use of the information to criminally investigate or prosecute any alcohol or drug abuse patient.[facility] HospitalIn the event this information is protected by the Federal Confidentiality of Alcohol and Drug Abuse Patient Records regulations: The Federal rules restrict any use of the information to criminally investigate or prosecute any alcohol or drug abuse patient.[facility] HospitalIn the event this information is protected by the Federal Confidentiality of Alcohol and Drug Abuse Patient Records regulations: The Federal rules restrict any use of the information to criminally investigate or prosecute any alcohol or drug abuse patient.[facility] HospitalIn the event this information is protected by the Federal Confidentiality of Alcohol and Drug Abuse Patient Records regulations: The Federal rules restrict any use of the information to criminally investigate or prosecute any alcohol or drug abuse patient.[facility] HospitalIn the event this information is protected by the Federal Confidentiality of Alcohol and Drug Abuse Patient Records regulations: The Federal rules restrict any use of the information to criminally investigate or prosecute any alcohol or drug abuse patient.[facility] HospitalIn the event this information is protected by the Federal Confidentiality of Alcohol and Drug Abuse Patient Records regulations: The Federal rules restrict any use of the information to criminally investigate or prosecute any alcohol or drug abuse patient.[facility] HospitalIn the event this information is protected by the Federal Confidentiality of Alcohol and Drug Abuse Patient Records regulations: The Federal rules restrict any use of the information to criminally investigate or prosecute any alcohol or drug abuse patient.[facility] HospitalIn the event this information is protected by the Federal Confidentiality of Alcohol and Drug Abuse Patient Records regulations: The Federal rules restrict any use of the information to criminally investigate or prosecute any alcohol or drug abuse patient.[facility] HospitalIn the event this information is protected by the Federal Confidentiality of Alcohol and Drug Abuse Patient Records regulations: The Federal rules restrict any use of the information to criminally investigate or prosecute any alcohol or drug abuse patient.[facility] HospitalIn the event this information is protected by the Federal Confidentiality of Alcohol and Drug Abuse Patient Records regulations: The Federal rules restrict any use of the information to criminally investigate or prosecute any alcohol or drug abuse patient.[facility] HospitalIn the event this information is protected by the Federal Confidentiality of Alcohol and Drug Abuse Patient Records regulations: The Federal rules restrict any use of the information to criminally investigate or prosecute any alcohol or drug abuse patient.[facility] HospitalIn the event this information is protected by the Federal Confidentiality of Alcohol and Drug Abuse Patient Records regulations: The Federal rules restrict any use of the information to criminally investigate or prosecute any alcohol or drug abuse patient.[facility] HospitalIn the event this information is protected by the Federal Confidentiality of Alcohol and Drug Abuse Patient Records regulations: The Federal rules restrict any use of the information to criminally investigate or prosecute any alcohol or drug abuse patient.[facility] HospitalIn the event this information is protected by the Federal Confidentiality of Alcohol and Drug Abuse Patient Records regulations: The Federal rules restrict any use of the information to criminally investigate or prosecute any alcohol or drug abuse patient.[facility] HospitalIn the event this information is protected by the Federal Confidentiality of Alcohol and Drug Abuse Patient Records regulations: The Federal rules restrict any use of the information to criminally investigate or prosecute any alcohol or drug abuse patient.[facility] HospitalIn the event this information is protected by the Federal Confidentiality of Alcohol and Drug Abuse Patient Records regulations: The Federal rules restrict any use of the information to criminally investigate or prosecute any alcohol or drug abuse patient.[facility] HospitalIn the event this information is protected by the Federal Confidentiality of Alcohol and Drug Abuse Patient Records regulations: The Federal rules restrict any use of the information to criminally investigate or prosecute any alcohol or drug abuse patient.[facility] HospitalIn the event this information is protected by the Federal Confidentiality of Alcohol and Drug Abuse Patient Records regulations: The Federal rules restrict any use of the information to criminally investigate or prosecute any alcohol or drug abuse patient.[facility] HospitalIn the event this information is protected by the Federal Confidentiality of Alcohol and Drug Abuse Patient Records regulations: The Federal rules restrict any use of the information to criminally investigate or prosecute any alcohol or drug abuse patient.[facility] HospitalIn the event this information is protected by the Federal Confidentiality of Alcohol and Drug Abuse Patient Records regulations: The Federal rules restrict any use of the information to criminally investigate or prosecute any alcohol or drug abuse patient.[facility] HospitalIn the event this information is protected by the Federal Confidentiality of Alcohol and Drug Abuse Patient Records regulations: The Federal rules restrict any use of the information to criminally investigate or prosecute any alcohol or drug abuse patient.[facility] HospitalIn the event this information is protected by the Federal Confidentiality of Alcohol and Drug Abuse Patient Records regulations: The Federal rules restrict any use of the information to criminally investigate or prosecute any alcohol or drug abuse patient.[facility] HospitalIn the event this information is protected by the Federal Confidentiality of Alcohol and Drug Abuse Patient Records regulations: The Federal rules restrict any use of the information to criminally investigate or prosecute any alcohol or drug abuse patient.[facility] HospitalIn the event this information is protected by the Federal Confidentiality of Alcohol and Drug Abuse Patient Records regulations: The Federal rules restrict any use of the information to criminally investigate or prosecute any alcohol or drug abuse patient.[facility] HospitalIn the event this information is protected by the Federal Confidentiality of Alcohol and Drug Abuse Patient Records regulations: The Federal rules restrict any use of the information to criminally investigate or prosecute any alcohol or drug abuse patient.[facility] HospitalIn the event this information is protected by the Federal Confidentiality of Alcohol and Drug Abuse Patient Records regulations: The Federal rules restrict any use of the information to criminally investigate or prosecute any alcohol or drug abuse patient.[facility] HospitalIn the event this information is protected by the Federal Confidentiality of Alcohol and Drug Abuse Patient Records regulations: The Federal rules restrict any use of the information to criminally investigate or prosecute any alcohol or drug abuse patient.[facility] HospitalIn the event this information is protected by the Federal Confidentiality of Alcohol and Drug Abuse Patient Records regulations: The Federal rules restrict any use of the information to criminally investigate or prosecute any alcohol or drug abuse patient.[facility] HospitalIn the event this information is protected by the Federal Confidentiality of Alcohol and Drug Abuse Patient Records regulations: The Federal rules restrict any use of the information to criminally investigate or prosecute any alcohol or drug abuse patient.[facility] HospitalIn the event this information is protected by the Federal Confidentiality of Alcohol and Drug Abuse Patient Records regulations: The Federal rules restrict any use of the information to criminally investigate or prosecute any alcohol or drug abuse patient.[facility] HospitalIn the event this information is protected by the Federal Confidentiality of Alcohol and Drug Abuse Patient Records regulations: The Federal rules restrict any use of the information to criminally investigate or prosecute any alcohol or drug abuse patient.[facility] HospitalIn the event this information is protected by the Federal Confidentiality of Alcohol and Drug Abuse Patient Records regulations: The Federal rules restrict any use of the information to criminally investigate or prosecute any alcohol or drug abuse patient.[facility] HospitalIn the event this information is protected by the Federal Confidentiality of Alcohol and Drug Abuse Patient Records regulations: The Federal rules restrict any use of the information to criminally investigate or prosecute any alcohol or drug abuse patient.[facility] HospitalIn the event this information is protected by the Federal Confidentiality of Alcohol and Drug Abuse Patient Records regulations: The Federal rules restrict any use of the information to criminally investigate or prosecute any alcohol or drug abuse patient.[facility] HospitalIn the event this information is protected by the Federal Confidentiality of Alcohol and Drug Abuse Patient Records regulations: The Federal rules restrict any use of the information to criminally investigate or prosecute any alcohol or drug abuse patient.[facility] HospitalIn the event this information is protected by the Federal Confidentiality of Alcohol and Drug Abuse Patient Records regulations: The Federal rules restrict any use of the information to criminally investigate or prosecute any alcohol or drug abuse patient.[facility] HospitalIn the event this information is protected by the Federal Confidentiality of Alcohol and Drug Abuse Patient Records regulations: The Federal rules restrict any use of the information to criminally investigate or prosecute any alcohol or drug abuse patient.[facility] HospitalIn the event this information is protected by the Federal Confidentiality of Alcohol and Drug Abuse Patient Records regulations: The Federal rules restrict any use of the information to criminally investigate or prosecute any alcohol or drug abuse patient.[facility] HospitalIn the event this information is protected by the Federal Confidentiality of Alcohol and Drug Abuse Patient Records regulations: The Federal rules restrict any use of the information to criminally investigate or prosecute any alcohol or drug abuse patient.[facility] HospitalIn the event this information is protected by the Federal Confidentiality of Alcohol and Drug Abuse Patient Records regulations: The Federal rules restrict any use of the information to criminally investigate or prosecute any alcohol or drug abuse patient.[facility] HospitalIn the event this information is protected by the Federal Confidentiality of Alcohol and Drug Abuse Patient Records regulations: The Federal rules restrict any use of the information to criminally investigate or prosecute any alcohol or drug abuse patient.[facility] HospitalIn the event this information is protected by the Federal Confidentiality of Alcohol and Drug Abuse Patient Records regulations: The Federal rules restrict any use of the information to criminally investigate or prosecute any alcohol or drug abuse patient.[facility] HospitalIn the event this information is protected by the Federal Confidentiality of Alcohol and Drug Abuse Patient Records regulations: The Federal rules restrict any use of the information to criminally investigate or prosecute any alcohol or drug abuse patient.[facility] HospitalIn the event this information is protected by the Federal Confidentiality of Alcohol and Drug Abuse Patient Records regulations: The Federal rules restrict any use of the information to criminally investigate or prosecute any alcohol or drug abuse patient.[facility] HospitalIn the event this information is protected by the Federal Confidentiality of Alcohol and Drug Abuse Patient Records regulations: The Federal rules restrict any use of the information to criminally investigate or prosecute any alcohol or drug abuse patient.[facility] HospitalIn the event this information is protected by the Federal Confidentiality of Alcohol and Drug Abuse Patient Records regulations: The Federal rules restrict any use of the information to criminally investigate or prosecute any alcohol or drug abuse patient.[facility] HospitalIn the event this information is protected by the Federal Confidentiality of Alcohol and Drug Abuse Patient Records regulations: The Federal rules restrict any use of the information to criminally investigate or prosecute any alcohol or drug abuse patient.[facility] HospitalIn the event this information is protected by the Federal Confidentiality of Alcohol and Drug Abuse Patient Records regulations: The Federal rules restrict any use of the information to criminally investigate or prosecute any alcohol or drug abuse patient.[facility] HospitalIn the event this information is protected by the Federal Confidentiality of Alcohol and Drug Abuse Patient Records regulations: The Federal rules restrict any use of the information to criminally investigate or prosecute any alcohol or drug abuse patient.[facility] HospitalIn the event this information is protected by the Federal Confidentiality of Alcohol and Drug Abuse Patient Records regulations: The Federal rules restrict any use of the information to criminally investigate or prosecute any alcohol or drug abuse patient.[facility] HospitalIn the event this information is protected by the Federal Confidentiality of Alcohol and Drug Abuse Patient Records regulations: The Federal rules restrict any use of the information to criminally investigate or prosecute any alcohol or drug abuse patient.[facility] HospitalIn the event this information is protected by the Federal Confidentiality of Alcohol and Drug Abuse Patient Records regulations: The Federal rules restrict any use of the information to criminally investigate or prosecute any alcohol or drug abuse patient.[facility] HospitalIn the event this information is protected by the Federal Confidentiality of Alcohol and Drug Abuse Patient Records regulations: The Federal rules restrict any use of the information to criminally investigate or prosecute any alcohol or drug abuse patient.[facility] HospitalIn the event this information is protected by the Federal Confidentiality of Alcohol and Drug Abuse Patient Records regulations: The Federal rules restrict any use of the information to criminally investigate or prosecute any alcohol or drug abuse patient.[facility] HospitalIn the event this information is protected by the Federal Confidentiality of Alcohol and Drug Abuse Patient Records regulations: The Federal rules restrict any use of the information to criminally investigate or prosecute any alcohol or drug abuse patient.[facility] HospitalIn the event this information is protected by the Federal Confidentiality of Alcohol and Drug Abuse Patient Records regulations: The Federal rules restrict any use of the information to criminally investigate or prosecute any alcohol or drug abuse patient.[facility] HospitalIn the event this information is protected by the Federal Confidentiality of Alcohol and Drug Abuse Patient Records regulations: The Federal rules restrict any use of the information to criminally investigate or prosecute any alcohol or drug abuse patient.[facility] Care Teams (unrecognized sec tion and content) Linotype Machinist Apprentice Relationship Specialty Start Date End Date Yoseph Fall MD [address] [place] [address] PCP - General 04/17/09 Linotype Machinist Apprentice Relationship Specialty Start Date End Date Yoseph Fall MD [address] [place] [address] PCP - General 04/17/09 Linotype Machinist Apprentice Relationship Specialty Start Date End Date Yoseph Fall MD [address] [place] [address] PCP - General 04/17/09 Linotype Machinist Apprentice Relationship Specialty Start Date End Date Yoseph Fall MD [address] [place] [address] PCP - General 04/17/09 Linotype Machinist Apprentice Relationship Specialty Start Date End Date Yoseph Fall MD [address] [place] [address] PCP - General 04/17/09 Linotype Machinist Apprentice Relationship Specialty Start Date End Date Yoseph Fall MD [address] [place] [address] PCP - General 04/17/09 Linotype Machinist Apprentice Relationship Specialty Start Date End Date Yoseph Fall MD [address] [facility] [place] [address] PCP - General 04/17/09 Linotype Machinist Apprentice Relationship Specialty Start Date End Date Yoseph Fall MD [address] [facility] [address] PCP - General 04/17/09 Linotype Machinist Apprentice Relationship Specialty Start Date End Date Yoseph Fall MD [facility] [place] [address] PCP - General 04/17/09 Linotype Machinist Apprentice Relationship Specialty Start Date End Date Yoseph Fall MD [address] [place] [address], [place] [address] PCP - General 04/17/09 Linotype Machinist Apprentice Relationship Specialty Start Date End Date Yoseph Fall MD [address] [place] [address], [place] [address] PCP - General 04/17/09 Linotype Machinist Apprentice Relationship Specialty Start Date End Date Yoseph Fall MD [address] [place] [address], [place] [address] PCP - General 04/17/09 Linotype Machinist Apprentice Relationship Specialty Start Date End Date Yoseph Fall MD [address] [place] [address], [place] [address] PCP - General 04/17/09 Linotype Machinist Apprentice Relationship Specialty Start Date End Date Yoseph Fall MD [address] [place] [address], [place] [address] PCP - General 04/17/09 Linotype Machinist Apprentice Relationship Specialty Start Date End Date Yoseph Fall MD [address] [place] [address], [place] [address] PCP - General 04/17/09 Linotype Machinist Apprentice Relationship Specialty Start Date End Date Yoseph Fall MD [address] [place] [address] PCP - General 04/17/09 Linotype Machinist Apprentice Relationship Specialty Start Date End Date Yoseph Fall MD [address] [place] [address] PCP - General 04/17/09 Linotype Machinist Apprentice Relationship Specialty Start Date End Date Yoseph Fall MD [address] [place] [address] PCP - General 04/17/09 Linotype Machinist Apprentice Relationship Specialty Start Date End Date Yoseph Fall MD [address] [place] [address] PCP - General 04/17/09 Linotype Machinist Apprentice Relationship Specialty Start Date End Date Yoseph Fall MD [address] [place] [address] PCP - General 04/17/09 Linotype Machinist Apprentice Relationship Specialty Start Date End Date Yoseph Fall MD [address] [place] [address] PCP - General 04/17/09 Linotype Machinist Apprentice Relationship Specialty Start Date End Date Yoseph Fall MD [address] [place] [address] PCP - General 04/17/09 Linotype Machinist Apprentice Relationship Specialty Start Date End Date Yoseph Fall MD [address] [place] [address] PCP - General 04/17/09 Linotype Machinist Apprentice Relationship Specialty Start Date End Date Yoseph Fall MD [address] [place] [address] PCP - General 04/17/09 Linotype Machinist Apprentice Relationship Specialty Start Date End Date Yoseph Fall MD [address] [place] [address] PCP - General 04/17/09 Linotype Machinist Apprentice Relationship Specialty Start Date End Date Yoseph Fall MD [address] [place], [place] [address] PCP - General 04/17/09 Team Status: Active Member Role Status Dates Dr. Yoseph Fall MD Primary Care Provider Active Team Status: Active Member Role Status Dates Dr. Yoseph Fall MD Primary Care Provider Active Dr. Dallas Mena MD Emergency Provider Active Dr. José Cunningham DO Admit Provider, Attending Pr ovider Active Linotype Machinist Apprentice Relationship Specialty Start Date End Date Yoseph Fall MD [address] [place], [place] [address] PCP - General 04/17/09 Team Status: Active Member Role Status Dates Dr. Yoseph Fall MD Primary Care Provider Active Dr. Dallas Mena MD Emergency Provider Active Dr. José Cunningham DO Admit Provider, Other Provid er Active Dr. Jna Bolanos MD Attending Provider, Other Provider Active Team Status: Inactive Member Role Status Dates Dr. Yoseph Fall MD Primary Care Provider Active Dr. Dallas Mena MD Emergency Provider Active Dr. José Cunningham DO Admit Provider, Other Provid er Active Dr. Jan Bolanos MD Attending Provider Active Linotype Machinist Apprentice Relationship Specialty Start Date End Date Yoseph Fall MD [address] [place], [place] [address] PCP - General 04/17/09 Linotype Machinist Apprentice Relationship Specialty Start Date End Date Yoseph Fall MD [address] [place], [place] [address] PCP - General 04/17/09 Linotype Machinist Apprentice Relationship Specialty Start Date End Date Yoseph Fall MD [address] [place] [address] PCP - General 04/17/09 Linotype Machinist Apprentice Relationship Specialty Start Date End Date Yoseph Fall MD [address] [place] [address] PCP - General 04/17/09 Linotype Machinist Apprentice Relationship Specialty Start Date End Date Yoseph Fall MD [address] [place] [address] PCP - General 04/17/09 Linotype Machinist Apprentice Relationship Specialty Start Date End Date Yoseph Fall MD [address] [place] [address] PCP - General 04/17/09 Linotype Machinist Apprentice Relationship Specialty Start Date End Date Yoseph Fall MD [address] [place] [address] PCP - General 04/17/09 Iman Person APRN.TOE LINING CLOSER [address] [place] [address] Director Data Management Family Medicine 04/02/24 Linotype Machinist Apprentice Relationship Specialty Start Date End Date Yoseph Fall MD [address] [place] [address] PCP - General 04/17/09 Iman Person APRN.TOE LINING CLOSER [address] [facility] [address] [facility] 04/02/24 Linotype Machinist Apprentice Relationship Specialty Start Date End Date Yoseph Fall MD [address] [facility] [address] PCP - General 04/17/09 Iman Person APRN.TOE LINING CLOSER [address] [facility] [address] Director Data Management [facility] Medicine 04/02/24 Nelson Robert APRN.TOE LINING CLOSER [address] [facility] [address] [facility] 04/11/24 Linotype Machinist Apprentice Relationship Specialty Start Date End Date Yoseph Fall MD [address] [facility] [address] PCP - General 04/17/09 Iman Person APRN.TOE LINING CLOSER [address] [facility] [address] [facility] 04/02/24 Nelson Robert APRN.TOE LINING CLOSER [address] [facility] [address] [facility] 04/11/24 Linotype Machinist Apprentice Relationship Specialty Start Date End Date Yoseph Fall MD [address] [facility] [address] PCP - General 04/17/09 Iman Person APRN.TOE LINING CLOSER [address] [place] [address] Director Data Management Family Medicine 04/02/24 Nelson Robert APRN.TOE LINING CLOSER [address] [place] [address] Director Data Management Family Medicine 04/11/24 Linotype Machinist Apprentice Relationship Specialty Start Date End Date Yoseph Fall MD [address] [place] [address] PCP - General 04/17/09 Iman Person APRN.TOE LINING CLOSER [address] [place] [address] Director Data Management Family Medicine 04/02/24 Nelson Robert APRN.TOE LINING CLOSER [address] [place] [address] Director Data Management Family Medicine 04/11/24 Linotype Machinist Apprentice Relationship Specialty Start Date End Date Yoseph Fall MD [address] [place] [address] PCP - General 04/17/09 Iman Person APRN.TOE LINING CLOSER [address] [place] [address] Director Data Management Family Medicine 04/02/24 Nelson Robert APRN.TOE LINING CLOSER [address] [place] [address] Director Data Management Family Medicine 04/11/24 Linotype Machinist Apprentice Relationship Specialty Start Date End Date Yoseph Fall MD [address] [place] [address] PCP - General 04/17/09 Iman Person APRN.TOE LINING CLOSER [address] [place] [address] Director Data Management Family Medicine 04/02/24 Nelson Robert APRN.TOE LINING CLOSER [address] [place] [address] Director Data Management [facility] 04/11/24 Linotype Machinist Apprentice Relationship Specialty Start Date End Date Yoseph Fall MD [address] [place] [address] PCP - General 04/17/09 Iman Person APRN.TOE LINING CLOSER [address] [place] [address] Director Data Management Family Medicine 04/02/24 Nelson Robert DESIGN ENGINEER AGRICULTURAL EQUIPMENT.TOE LINING CLOSER [address] [place] [address] [facility] 04/[facility]/24 Linotype Machinist Apprentice Relationship Specialty Start Date End Date Yoseph Fall MD [address] [place] [address] PCP - General 04/17/09 Iman Person APRN.TOE LINING CLOSER [address] [place] [address] Director Data Management Family Medicine 04/02/24 Nelson Robert APRN.TOE LINING CLOSER [address] [place] [address] [facility] 04/11/24 Linotype Machinist Apprentice Relationship Specialty Start Date End Date Yoseph Fall MD [address] [facility] [address] PCP - General 04/17/09 Iman Person APRN.TOE LINING CLOSER [address] [facility] [address] Director Data Management Family Medicine 04/02/24 Nelson Robert APRN.TOE LINING CLOSER [address] [place] [address] Director Data Management Family Medicine 04/11/24 Linotype Machinist Apprentice Relationship Specialty Start Date End Date Yoseph Fall MD [address] [facility] [address] PCP - General 04/17/09 Iman Person APRN.TOE LINING CLOSER [address] [facility] [address] Director Data Management Family Medicine 04/02/24 Nelson Robert APRN.TOE LINING CLOSER [address] [facility] [address] Director Data Management [facility] Medicine 04/11/24 Linotype Machinist Apprentice Relationship Specialty Start Date End Date Yoseph Fall MD [address] [facility] [address] PCP - General 04/17/09 Iman Person APRN.TOE LINING CLOSER [address] [place] [address] Director Data Management Family Medicine 04/02/24 Nelson Robert APRN.TOE LINING CLOSER [address] [facility] [address] [facility] 04/11/24 Linotype Machinist Apprentice Relationship Specialty Start Date End Date Yoseph Fall MD [address] [facility] [address] PCP - General 04/17/09 Iman Person, DESIGN ENGINEER AGRICULTURAL EQUIPMENT.TOE LINING CLOSER [address] [facility] [address] [facility] 04/02/24 Nelson Robert, DESIGN ENGINEER AGRICULTURAL EQUIPMENT.TOE LINING CLOSER [address] [facility] [address] [facility] 04/11/24 Linotype Machinist Apprentice Relationship Specialty Start Date End Date Yoseph Fall MD [address] [facility] [address] PCP - General 04/17/09 Nelson Robert, DESIGN ENGINEER AGRICULTURAL EQUIPMENT.TOE LINING CLOSER [address] [place] [address] [facility] 04/11/24 Team Status: Active Member Role Status [...] Active Start: October 05, 2024 Dr. Junito Mdarid MD Other Provider Active St art: October [...] Provider Active St art: October 09, 2024 Linotype Machinist Apprentice Relationship Specialty Start Date End Date Yoseph Fall MD [address] [place], [place] [address] PCP - General 04/17/09 Nelson Robert, [place].TOE LINING CLOSER [address] [place], [place] [id number] Director Data Management Family Medicine 04/11/24 Linotype Machinist Apprentice Relationship Specialty Start Date End Date Yoseph Fall MD [address] [place], [place] [id number] PCP - General 04/17/09 Nelson Robert APRN.TOE LINING CLOSER [address] [place] [address] Director Data Management [facility] 04/11/24 Linotype Machinist Apprentice Relationship Specialty Start Date End Date Yoseph Fall MD [address] [place] [address] PCP - General 04/17/09 Nelson Robert, DESIGN ENGINEER AGRICULTURAL EQUIPMENT.TOE LINING CLOSER [address] [place] [address] [facility] 04/11/24 Linotype Machinist Apprentice Relationship Specialty Start Date End Date Yoseph Fall MD [address] [place] [address] PCP - General 04/17/09 Nelson Robert, DESIGN ENGINEER AGRICULTURAL EQUIPMENT.TOE LINING CLOSER [address] [place] [address] [facility] 04/11/24 Linotype Machinist Apprentice Relationship Specialty Start Date End Date Yoseph Fall MD [address] [place] [address] PCP - General 04/17/09 Nelson Robert, DESIGN ENGINEER AGRICULTURAL EQUIPMENT.TOE LINING CLOSER [address] [place] [address] [facility] 04/11/24 Linotype Machinist Apprentice Relationship Specialty Start Date End Date Yoseph Fall MD [address] [place] [address] PCP - General 04/17/09 Nelson Robert APRN.TOE LINING CLOSER [address] [place] [address] Director Data Management [facility] 04/11/24 Linotype Machinist Apprentice Relationship Specialty Start Date End Date Yoseph Fall MD [address] [place] [address] PCP - General 04/17/09 Nelson Robert DESIGN ENGINEER AGRICULTURAL EQUIPMENT.TOE LINING CLOSER [address] [place] [address] Director Data Management [facility] 04/11/24 Linotype Machinist Apprentice Relationship Specialty Start Date End Date Yoseph Fall MD [address] [place] [address] PCP - General 04/17/09 Nelson Robert, DESIGN ENGINEER AGRICULTURAL EQUIPMENT.TOE LINING CLOSER [address] [place] [address] Director Data Management [facility] 04/11/24 Linotype Machinist Apprentice Relationship Specialty Start Date End Date Yoseph Fall MD [address] [place] [address] PCP - General 04/17/09 Nelson Robert, DESIGN ENGINEER AGRICULTURAL EQUIPMENT.TOE LINING CLOSER [address] [place] [address] [facility] 04/11/24 Linotype Machinist Apprentice Relationship Specialty Start Date End Date Yoseph Fall MD [address] [place] [address] PCP - General 04/17/09 Nelson Robert DESIGN ENGINEER AGRICULTURAL EQUIPMENT.TOE LINING CLOSER [address] [facility], [place] [id number] Director Data Management [facility] 04/11/24 Linotype Machinist Apprentice Relationship Specialty Start Date End Date Yoseph Fall MD [address] [place], [place] [id number] PCP - General 04/17/09 Nelson Robert APRN.TOE LINING CLOSER [address] [facility], [place] [address] Director Data Management [facility] 04/11/24 Team Status: Active Member Role/Relationship [...] Active Member Role/Relationship Status Dates Dr. Yoseph aFll MD Primary Care Provider Active Start: October [...] November 03, 2024 End: November 03, 2024 Linotype Machinist Apprentice Relationship Specialty Start Date End Date Yoseph Fall MD [address] [place], [place] [address]351 PCP - General 04/17/09 Nelson Robert, ABRAHAM.TOE LINING CLOSER [address] [place], [place] [address] [facility] 04/11/24 Linotype Machinist Apprentice Relationship Specialty Start Date End Date Yoseph Fall MD [address] [place], [place] [id number] PCP - General 04/17/09 Nelson Robert APRN.TOE LINING CLOSER [address] [place], [place] [address]28[address] Director Data Management [facility] 04/11/24 Linotype Machinist Apprentice Relationship Specialty Start Date End Date Yoseph Fall MD [address] [place] [address] PCP - General 04/17/09 Nelson Robert APRN.TOE LINING CLOSER [address] [place] [address] [facility] 04/11/24 Linotype Machinist Apprentice Relationship Specialty Start Date End Date Yoseph Fall MD [address] [place] [address] PCP - General 04/17/09 Nelson Robert APRN.TOE LINING CLOSER [address] [place] [address] [facility] 04/11/24 Mikayla Broussard, RN Specialty Coding Auditor [facility] 11/24/24 Gregor Fernandez APRN.TOE LINING CLOSER [address] [place], [place] [id number] Palliative Medicine Home Provider [facility] 11/24/24 Linotype Machinist Apprentice Relationship Specialty Start Date End Date Yoseph Fall MD [address] [place] [address] PCP - General 04/17/09 Nelson Robert DESIGN ENGINEER AGRICULTURAL EQUIPMENT.TOE LINING CLOSER [address] [place] [address] [facility] 04/11/24 Mikayla Broussard, RN Specialty Coding Auditor [facility] 11/24/24 Gregor Fernandez APRN.TOE LINING CLOSER [address] [place] [address] Palliative Medicine Home Provider [facility] 11/24/24 Linotype Machinist Apprentice Relationship Specialty Start Date End Date Yoseph Fall MD [address] [place], [place] [id number] PCP - General 04/17/09 Nelson Robert, DESIGN ENGINEER AGRICULTURAL EQUIPMENT.TOE LINING CLOSER [address] [place], [place] [id number] [phone] Director Data Management Family [facility] 04/11/24 Mikayla Broussard, KAREN Specialty Coding Auditor [facility] 11/24/24 Gregor Fernandez, DESIGN ENGINEER AGRICULTURAL EQUIPMENT.TOE LINING CLOSER [address] [place], [place] [phone] Palliative Medicine Home Provider [facility] 11/24/24 Linotype Machinist Apprentice Relationship Specialty Start Date End Date Yoseph Fall MD [address] [place], [place] [id number] [phone] PCP - General 04/17/09 Nelson Robert, DESIGN ENGINEER AGRICULTURAL EQUIPMENT.TOE LINING CLOSER [address] [place] [address] [address] Data Management [facility] 04/11/24 Mikayla Broussard, KAREN Specialty Coding Auditor [facility] 11/24/24 Gregor Fernandez, DESIGN ENGINEER AGRICULTURAL EQUIPMENT.TOE LINING CLOSER [address] [place] [address] Palliative Medicine Home Provider [facility] 11/24/24 Linotype Machinist Apprentice Relationship Specialty Start Date End Date Yoseph Fall MD [address] [place] [address] PCP - General 04/17/09 Nelson Robert, DESIGN ENGINEER AGRICULTURAL EQUIPMENT.TOE LINING CLOSER [address] [place] [address] Data [address] [facility] 04/11/24 Mikayla Broussard, RN Specialty Coding Auditor [facility] 11/24/24 Gregor Fernandez, DESIGN ENGINEER AGRICULTURAL EQUIPMENT.TOE LINING CLOSER [address] [place], [place] [phone] Palliative Medicine Home Provider [facility] 11/24/24 Linotype Machinist Apprentice Relationship Specialty Start Date End Date Yoseph Fall MD [facility] [place] [address] PCP - General 04/17/09 Nelson Robert DESIGN ENGINEER AGRICULTURAL EQUIPMENT.TOE LINING CLOSER [facility] [place] [address] Director Data Management [facility] 04/11/24 Mikayla Broussard RN Specialty Coding Auditor [facility] 11/24/24 Gregor Fernandez, DESIGN ENGINEER AGRICULTURAL EQUIPMENT.TOE LINING CLOSER [address] [place], [place] [phone] Palliative Medicine Home Provider [facility] 11/24/24 Linotype Machinist Apprentice Relationship Specialty Start Date End Date Yoseph Fall MD [address] [place] [address] PCP - General 04/17/09 Nelson Robert DESIGN ENGINEER AGRICULTURAL EQUIPMENT.TOE LINING CLOSER [address] [place] [address] Director Data Management [facility] 04/11/24 Mikayla Broussard, KAREN Specialty Coding Auditor [facility] 11/24/24 Gregor Fernandez APRN.TOE LINING CLOSER [address] [place] [address] Palliative Medicine Home Provider [facility] 11/24/24 Team Status: Active Member Role/Relationship Status Dates Dr. Yoseph aFll MD Primary Care Provider Active Start: December [...] Attending Provider Active Start: December 26, 2024 STEFANIE Clifford Other Provider Active Start: December Team Status: [...] Active St art: December 27, 2024 Stacy Pincumbe-Gillaspie , SOUND EFFECTS TECHNICIAN-C Attending Provider Active Start: December Stacy Jha [...] 26, 2024 End: December 30, 2024 STEFANIE Clifford Other Provider Active Start: December End: December 30, 2024 Dr. Alessandro Palma MD Other Provider Active Sta rt: December 26, 2024 End: December 30, 2024 Dr. Kyle Mendenhall DO Other Provider Active St art: December 26, 2024 End: December 30, 2024 STEFANIE Sifuentes Other Provider Active Start : December 26, 2024 End: December 30, 2024 STEFANIE Alexander Other Provider Active St art: December 26, 2024 End: December 30, 2024 SADIQ Peaz Other Provider Active Star t: December 26, [...] Active Start: December 27, 2024 Dr. Lynne Schafer MD Other Provider Active St art: December 27, 2024 MADDI CliffordC Other Provider Active Start: December Dr. Alessandro Palma MD Other Provider Active Sta rt: December 27, 2024 Dr. Kyle Mendenhall DO Other Provider Active St art: December 27, 2024 STEFANIE Sifuentes Other Provider Active Start : December 27, 2024 STEFANIE Alexander Other Provider Active St art: December 27, [...] Active St art: December 28, 2024 STEFANIE Clifford Attending Provider Active Start: [...] Active St art: December 28, 2024 STEFANIE Clifford Other Provider Active Start: [...] Active St art: December 28, 2024 Dr. Lynen Schafer MD Attending Provider Active Start: December 28, 2024 Dr. Lynne Schafer MD Other Provider Active St art: December 28, 2024 STEFANIE Clifford Other Provider Active Start: [...] St art: December 29, 2024 STEFANIE Clifford Other Provider Active Start: December Dr. Alessandro Palma MD Other Provider Active Sta rt: December 29, 2024 Dr. Kyle Mendenhall DO Other Provider Active St art: December 29, 2024 STEFANIE Sifuentes Other Provider Active Start : December 29, 2024 STEFANIE Alexander Other Provider Active St art: December 29, 2024 SADIQ Paez Other Provider Active Star t: December 29, 2024 Linotype Machinist Apprentice Relationship Specialty Start Date End Date Yoseph Fall MD [address] [place], [place] [address] PCP - General 04/17/09 Nelson Robert, DESIGN ENGINEER AGRICULTURAL EQUIPMENT.TOE LINING CLOSER [address] [place], [place] [address] Director Data Management [facility] 04/11/24 Mikayla Broussard, RN Specialty Coding Auditor [facility] 11/24/24 Gregor Fernandez, DESIGN ENGINEER AGRICULTURAL EQUIPMENT.TOE LINING CLOSER [address] [place] [address] Palliative Medicine Home Provider [facility] 11/24/24 Team Status: Active Member Role/Relationship Status Dates Dr. Yoseph Fall MD Primary care physician Active Team Status: Active Member Role/Relationship Status Dates Dr. Yoseph Fall MD Primary care physician Active Start: September 29, 2024 Dr. Riley Jeff DO Emergency Department Physician A ctive Start: September 29, 2024 Dr. Dionne Porter MD Attending physician Active Start: September 29, 2024 Team Status: Inactive Member Role/Relationship Status Dates Dr. Yoseph Fall MD Primary care physician Active Start: September 29, 2024 End: October 09, 2024 Dr. Riley Jeff DO Emergency Departme nt Physician Active Start: September 29, 2024 End: October 09, 2024 Dr. Dionne Porter MD Admitting physician Active Start: September 29, 2024 End: October 09, 2024 Dr. Dionne Porter MD Nurse Practitioner Active Start: September 29, 2024 End: October 09, 2024 Dr. Jan Bolanos MD Nurse Practitioner Active Start: September 29 End: October 09, 2024 Dr. Junito Madrid MD Nurse Practitioner Active Start: September 29, 2024 End: October 09, 2024 Dr. Alessandro Palma MD Attending physician Active Start: September 29, 2024 End: October 09, 2024 Dr. Lynne Schafer MD Nurse Practitioner Active Start: September 29, 2024 End: October 09, 2024 Team Status: Active Member Role/Relationship Status Dates Dr. Yoseph Fall MD Primary care physician Active Start: September 30, 2024 Dr. Riley Jeff DO Emergency Departme nt Physician Active Start: September 30, 2024 Dr. Dionne Porter MD Admitting physician Active Start: September 30, 2024 Dr. Dionne Porter MD Nurse Practitioner Active Start: September 30, 2024 Dr. Jan Bolanos MD Attending physician Active Start: September 30 Dr. Jan Bolanos MD Nurse Practitioner Active Start: September 30 Team Status: Active Member Role/Relationship Status Dates Dr. Yoseph Fall MD Primary care physician Active Start: October 01, 2024 Dr. Riley Jeff DO Emergency Departme nt Physician Active Start: October 01, 2024 Dr. Dionne Porter MD Admitting physician Active Start: October 01, 2024 Dr. Dionne Porter MD Nurse Practitioner Active Start: October 01, 2024 Dr. Jan Bolanos MD Attending physician Active Start: October 01 Dr. Jan Bolanos MD Nurse Practitioner Active Start: October 01 Team Status: Active Member Role/Relationship Status Dates Dr. Yoseph Fall MD Primary care physician Active Start: October 02, 2024 Dr. Riley Jeff , Emergency Departme nt Physician Active Start: October 02, 2024 Dr. Dionne Porter MD Admitting physician Active Start: October 02, 2024 Dr. Dionne Porter MD Nurse Practitioner Active Start: October 02, 2024 Dr. Lynne Schafer MD Nurse Practitioner Active Start: October 02, 2024 Dr. Jan Bolanos MD Nurse Practitioner Active Start: October 02 Dr. Junito Madrid MD Attending physician Active Start: October 02, 2024 Dr. Junito Madrid MD Nurse Practitioner Active Start: October 02, 2024 Team Status: Active Member Role/Relationship Status Dates Dr. Yoseph Fall MD Primary care physician Active Start: October 02, 2024 Dr. Riley Jeff DO Emergency Departme nt Physician Active Start: October 02, 2024 Dr. Dionne Porter MD Admitting physician Active Start: October 02, 2024 Dr. Dionne Porter MD Nurse Practitioner Active Start: October 02, 2024 Dr. Lynne Schafer MD Attending physician Active Start: October 02, 2024 Dr. Lynne Schafer MD Nurse Practitioner Active Start: October 02, 2024 Dr. Jan Bolanos MD Nurse Practitioner Active Start: October 02 Dr. Junito Madrid MD Nurse Practitioner Active Start: October 02, 2024 Team Status: Active Member Role/Relationship Status Dates Dr. Yoseph Fall MD Primary care physician Active Start: October 02, 2024 Dr. Dillon Lopez MD Attending physician Active Start: October 02, 2024 Team Status: Active Member Role/Relationship Status Dates Dr. Yoseph Fall MD Primary care physician Active Start: October 03, 2024 Dr. Riley Jeff DO Emergency Departme nt Physician Active Start: October 03, 2024 Dr. Dionne Porter MD Admitting physician Active Start: October 03, 2024 Dr. Dionne Porter MD Nurse Practitioner Active Start: October 03, 2024 Dr. Lynne Schafer MD Nurse Practitioner Active Start: October 03, 2024 Dr. Jan Bolanos MD Nurse Practitioner Active Start: October 03 Dr. Junito Madrid MD Attending physician Active Start: October 03, 2024 Dr. Junito Madrid MD Nurse Practitioner Active Start: October 03, 2024 Team Status: Active Member Role/Relationship Status Dates Dr. Yoseph Fall MD Primary care physician Active Start: October 03, 2024 Dr. Riley Jeff DO Emergency Departhi nt Physician Active Start: October 03, 2024 Dr. Dionne Porter MD Admitting physician Active Start: October 03, 2024 Dr. Dionne Porter MD Nurse Practitioner Active Start: October 03, 2024 Dr. Lynne Schafer MD Attending physician Active Start: October 03, 2024 Dr. Lynne Schafer MD Nurse Practitioner Active Start: October 03, 2024 Dr. Jan Bolanos MD Nurse Practitioner Active Start: October 03 Dr. Junito Madrid MD Nurse Practitioner Active Start: October 03, 2024 Team Status: Active Member Role/Relationship Status Dates Dr. Yoseph Fall MD Primary care physician Active Start: October 04, 2024 Dr. Riley Jeff DO Emergency Departme nt Physician Active Start: October 04, 2024 Dr. Dionne Porter MD Admitting physician Active Start: October 04, 2024 Dr. Dionne Porter MD Nurse Practitioner Active Start: October 04, 2024 Dr. Lynne Schafer MD Nurse Practitioner Active Start: October 04, 2024 Dr. Jan Bolanos MD Nurse Practitioner Active Start: October 04 Dr. Junito Madrid MD Attending physician Active Start: October 04, 2024 Dr. Junito Madrid MD Nurse Practitioner Active Start: October 04, 2024 Team Status: Active Member Role/Relationship Status Dates Dr. Yoseph Fall MD Primary care physician Active Start: October 04, 2024 Dr. Riley Jeff DO Emergency Departme nt Physician Active Start: October 04, 2024 Dr. Dionne Porter MD Admitting physician Active Start: October 04, 2024 Dr. Dionne Porter MD Nurse Practitioner Active Start: October 04, 2024 Dr. Lynne Schafer MD Attending physician Active Start: October 04, 2024 Dr. Lynne Schafer MD Nurse Practitioner Active Start: October 04, 2024 Dr. Jan Bolanos MD Nurse Practitioner Active Start: October 04 Dr. Junito Madrid MD Nurse Practitioner Active Start: October 04, 2024 Team Status: Active Member Role/Relationship Status Dates Dr. Yoseph Fall MD Primary care physician Active Start: October 05, 2024 Dr. Riley Jeff , [facility] Phys[facility] Active Start: October 05, 2024 Dr. Dinone Porter MD Admitting physician Active Start: October 05, 2024 Dr. Dionne Porter MD Nurse Practitioner Active Start: October 05, 2024 Dr. Lynne Schafer MD Attending physician Active Start: October 05, 2024 Dr. Lynne Schafer MD Nurse Practitioner Active Start: October 05, 2024 Dr. Jan Bolanos MD Nurse Practitioner Active Start: October 05 Dr. Junito Madrid MD Nurse Practitioner Active Start: October 05, 2024 Team Status: Active Member Role/Relationship Status Dates Dr. Yoseph Fall MD Primary care physician Active Start: October 06, 2024 Dr. Riley Jeff [facility] nt Physician Active Start: October 06, 2024 Dr. Dionne Porter MD Admitting physician Active Start: October 06, 2024 Dr. Dionne Porter MD Nurse Practitioner Active Start: October 06, 2024 Dr. Lynne Schafer MD Nurse Practitioner Active Start: October 06, 2024 Dr. Jan Bolanos MD Nurse Practitioner Active Start: October 06 Dr. Junito Madrid MD Nurse Practitioner Active Start: October 06, 2024 Dr. Michael Plasencia MD Attending physician Active Start: October 06, 2024 Team Status: Active Member Role/Relationship Status Dates Dr. Yoseph Fall MD Primary care physician Active Start: October 06, 2024 Dr. Riley Jeff , Emergency Departme nt Physician Active Start: October 06, 2024 Dr. Dionne Porter MD Admitting physician Active Start: October 06, 2024 Dr. Dionne Porter MD Nurse Practitioner Active Start: October 06, 2024 Dr. Lynne Schafer MD Attending physician Active Start: October 06, 2024 Dr. Lynne Schafer MD Nurse Practitioner Active Start: October 06, 2024 Dr. Jan Bolanos MD Nurse Practitioner Active Start: October 06 Dr. Junito Madrid MD Nurse Practitioner Active Start: October 06, 2024 Team Status: Active Member Role/Relationship Status Dates Dr. Yoseph Fall MD Primary care physician Active Start: October 07, 2024 Dr. Riley Jeff Emergency Departhi nt Physician Active Start: October 07, 2024 Dr. Dionne Porter MD Admitting physician Active Start: October 07, 2024 Dr. Dionne Porter MD Nurse Practitioner Active Start: October 07, 2024 Dr. Lynne Schafer MD Nurse Practitioner Active Start: October 07, 2024 Dr. Jan Bolanos MD Nurse Practitioner Active Start: October 07 Dr. Junito Madrid MD Nurse Practitioner Active Start: October 07, 2024 Dr. Michael Plasencia MD Attending physician Active Start: October 07, 2024 Team Status: Active Member Role/Relationship Status Dates Dr. Yoseph Fall MD Primary care physician Active Start: October 07, 2024 Dr. Riley Jeff Emergency Departhi nt Physician Active Start: October 07, 2024 Dr. Dionne Porter MD Admitting physician Active Start: October 07, 2024 Dr. Dionne Porter MD Nurse Practitioner Active Start: October 07, 2024 Dr. Lynne Schafer MD Attending physician Active Start: October 07, 2024 Dr. Lynne Schafer MD Nurse Practitioner Active Start: October 07, 2024 Dr. Jan Bolanos MD Nurse Practitioner Active Start: October 07 Dr. Junito Madrid MD Nurse Practitioner Active Start: October 07, 2024 Team Status: Active Member Role/Relationship Status Dates Dr. Yoseph Fall MD Primary care physician Active Start: October 08, 2024 Dr. Riley Jeff , Emergency Departme nt Physician Active Start: October 08, 2024 Dr. Dionne oPrter MD Admitting physician Active Start: October 08, 2024 Dr. Dionne Porter MD Nurse Practitioner Active Start: October 08, 2024 Dr. Lynne Schafer MD Nurse Practitioner Active Start: October 08, 2024 Dr. Jan Bolanos MD Nurse Practitioner Active Start: October 08 Dr. Junito Madrid MD Nurse Practitioner Active Start: October 08, 2024 Dr. Michael Plasencia MD Attending physician Active Start: October 08, 2024 Team Status: Active Member Role/Relationship Status Dates Dr. Yoseph Fall MD Primary care physician Active Start: October 08, 2024 Dr. Riley Jeff , Emergency Departme nt Physician Active Start: October 08, 2024 Dr. Dionne Porter MD Admitting physician Active Start: October 08, 2024 Dr. Dionne Porter MD Nurse Practitioner Active Start: October 08, 2024 Dr. Lynne Schafer MD Attending physician Active Start: October 08, 2024 Dr. Lynne Schafer MD Nurse Practitioner Active Start: October 08, 2024 Dr. Jan Bolanos MD Nurse Practitioner Active Start: October 08 Dr. Junito Madrid MD Nurse Practitioner Active Start: October 08, 2024 Team Status: Active Member Role/Relationship Status Dates Dr. Yoseph Fall MD Primary care physician Active Start: October 09, 2024 Dr. Riley Jeff , Emergency Departme nt Physician Active Start: October 09, 2024 Dr. Dionne Porter MD Admitting physician Active Start: October 09, 2024 Dr. Dionne Porter MD Nurse Practitioner Active Start: October 09, 2024 Dr. Jan Bolanos MD Nurse Practitioner Active Start: October 09 Dr. Junito Madrid MD Nurse Practitioner Active Start: October 09, 2024 Dr. Alessandro Palma MD Attending physician Active Start: October 09, 2024 Dr. Alessandro Palma MD Nurse Practitioner Active Start: October 09, 2024 Dr. Lynne Schafer MD Nurse Practitioner Active Start: October 09, 2024 Team Status: Inactive Member Role/Relationship Status Dates Dr. Yoseph Fall MD Primary care physician Active Start: November 03, 2024 End: November 03, 2024 Dr. Yoseph Fall MD Referring Provider Active Start: November 03, 2024 End: November 03, 2024 Lindsay BABCOCK, PA Attending physician Active Start: November 03, 2024 End: November 03, 2024 Team Status: Inactive Member Role/Relationship Status Dates Dr. Yoseph Fall MD Primary care physician Active Start: December 26, 2024 End: December 30, 2024 Dr. Marcel Zarate MD Emergency [facility] Physician Active Start: December 26, 2024 End: December 30, 2024 Dr. Dionne Porter MD Admitting physician Active Start: December 26, 2024 End: December 30, 2024 Dr. Dionne Porter MD Nurse Practitioner Active Start: December 26, 2024 End: December 30, 2024 Dr. Lynne Schafer MD Attending physician Active Start: December 26, 2024 End: December 30, 2024 Stacy Jha SOUND EFFECTS TECHNICIAN-C Nurse Practitioner Active Start: December End: December 30, 2024 Dr. Alessandro Palma MD Nurse Practitioner Active Start: December 26, 2024 End: December 30, 2024 Dr. Kyle Mendenhall DO Nurse Practitioner Active Start: December 26, 2024 End: December 30, 2024 Elma Mendez SOUND EFFECTS TECHNICIAN-C Nurse Practitioner Active S tart: December 26, 2024 End: December 30, 2024 Mercedez Joseph SOUND EFFECTS TECHNICIAN-C Nurse Practitioner Active Start: December 26, 2024 End: December 30, 2024 SADIQ Paez Nurse Practitioner Active Start: December 26, 2024 End: December 30, 2024 Team Status: Active Member Role/Relationship Status Dates Dr. Yoseph Fall MD Primary care physician Active Start: December 26, 2024 Dr. Marcel Zarate MD Emergency Depart ment Physician Active Start: December 26, 2024 Dr. Dionne Porter MD Admitting physician Active Start: December 26, 2024 Dr. Dionne Porter MD Attending physician Active Start: December 26, 2024 Dr. Dionne Porter MD Nurse Practitioner Active Start: December 26, 2024 Team Status: Active Member Role/Relationship Status Dates Dr. Yoseph Fall MD Primary care physician Active Start: December 27, 2024 Dr. Marcel Zarate MD Emergency Depart ment Physician Active Start: December 27, 2024 Dr. Dionne Porter MD Admitting physician Active Start: December 27, 2024 Dr. Dionne Porter MD Nurse Practitioner Active Start: December 27, 2024 Dr. Lynne Schafer MD Nurse Practitioner Active Start: December 27, 2024 Stacy Jha SOUND EFFECTS TECHNICIAN-C Attending physician Active Start: December Stacy Jah SOUND EFFECTS TECHNICIAN-C Nurse Practitioner Active Start: December Team Status: Active Member Role/Relationship Status Dates Dr. Yoseph Fall MD Primary care physician Active Start: December 27, 2024 Dr. Marcel Zarate MD Emergency Depart ment Physician Active Start: December 27, 2024 Dr. Dionne Porter MD Admitting physician Active Start: December 27, 2024 Dr. Dionne Porter MD Nurse Practitioner Active Start: December 27, 2024 Dr. Lynne Schafer MD Attending physician Active Start: December 27, 2024 Dr. Lynne Schafer MD Nurse Practitioner Active Start: December 27, 2024 Stacy Jha NP-C Nurse Practitioner Active Start: December Dr. Alessandro Palma MD Nurse Practitioner Active Start: December 27, 2024 Dr. Kyle Mendenhall DO Nurse Practitioner Active Start: December 27, 2024 Elma Mendez NP-C Nurse Practitioner Active S tart: December 27, 2024 Mercedez Joseph NP-C Nurse Practitioner Active Start: December 27, 2024 SADIQ Paez Nurse Practitioner Active Start: December 27, 2024 Team Status: Active Member Role/Relationship Status Dates Dr. Yoseph Fall MD Primary care physician Active Start: December 28, 2024 Dr. Marcel Zarate MD Emergency Depart ment Physician Active Start: December 28, 2024 Dr. Dionne Porter MD Admitting physician Active Start: December 28, 2024 Dr. Dionne Porter MD Nurse Practitioner Active Start: December 28, 2024 Dr. Lynne Schafer MD Nurse Practitioner Active Start: December 28, 2024 Stacy Jha NP-C Attending physician Active Start: December Stacy Jha NP-C Nurse Practitioner Active Start: December Dr. Alessandro Palma MD Nurse Practitioner Active Start: December 28, 2024 Dr. Kyle Mendenhall DO Nurse Practitioner Active Start: December 28, 2024 Elma Mendez NP-C Nurse Practitioner Active S tart: December 28, 2024 Mercedez Joseph NP-C Nurse Practitioner Active Start: December 28, 2024 SADIQ Paez Nurse Practitioner Active Start: December 28, 2024 Team Status: Active Member Role/Relationship Status Dates Dr. Yoseph Fall MD Primary care physician Active Start: December 28, 2024 Dr. Marcel Zarate MD Emergency Depart [facility] Physician Active Start: December 28, 2024 Dr. Dionne Porter MD Admitting physician Active Start: December 28, 2024 Dr. Dionne Porter MD Nurse Practitioner Active Start: December 28, 2024 Dr. Lynne Schafer MD Referring Provider Active Start: December 28, 2024 Dr. Lynne Schafer MD Nurse Practitioner Active Start: December 28, 2024 Stacy Jha NP-C Nurse Practitioner Active Start: December Dr. Alessandro Palma MD Nurse Practitioner Active Start: December 28, 2024 Dr. Kyle Mendenhall DO Attending physician Active Start: December 28, 2024 Dr. Kyle Mendenhall DO Nurse Practitioner Active Start: December 28, 2024 Elma Mendez NP-C Nurse Practitioner Active S tart: December 28, 2024 Mercedez Joseph NP-C Nurse Practitioner Active Start: December 28, 2024 SADIQ Paez Nurse Practitioner Active Start: December 28, 2024 Team Status: Active Member Role/Relationship Status Dates Dr. Yoseph Fall MD Primary care physician Active Start: December 28, 2024 Dr. Marcel Zarate MD Emergency Depart ment Physician Active Start: December 28, 2024 Dr. Dionne Porter MD Admitting physician Active Start: December 28, 2024 Dr. Dionne Porter MD Nurse Practitioner Active Start: December 28, 2024 Dr. Lynne Schafer MD Attending physician Active Start: December 28, 2024 Dr. Lynne Schafer MD Nurse Practitioner Active Start: December 28, 2024 Stacy Jha NP-C Nurse Practitioner Active Start: December Dr. Alessandro Palma MD Nurse Practitioner Active Start: December 28, 2024 Dr. Kyle Mendenhall DO Nurse Practitioner Active Start: December 28, 2024 Elma Mendez NP-C Nurse Practitioner Active S tart: December 28, 2024 Mercedez Joseph NP-C Nurse Practitioner Active Start: December 28, 2024 SADIQ Paez Nurse Practitioner Active Start: December 28, 2024 Team Status: Active Member Role/Relationship Status Dates Dr. Yoseph Fall MD Primary care physician Active Start: December 29, 2024 Dr. Marcel Zarate MD Emergency Depart [facility] Physician Active Start: December 29, 2024 Dr. Dionne Porter MD Admitting physician Active Start: December 29, 2024 Dr. Dionne Porter MD Nurse Practitioner Active Start: December 29, 2024 Dr. Lynne Schafer MD Nurse Practitioner Active Start: December 29, 2024 Stacy Jha SOUND EFFECTS TECHNICIAN-C Attending physician Active Start: December Stacy Jha SOUND EFFECTS TECHNICIAN-C Nurse Practitioner Active Start: December Dr. Alessandro Palma MD Nurse Practitioner Active Start: December 29, 2024 Dr. Kyle Mendenhall DO Nurse Practitioner Active Start: December 29, 2024 Elma Mendez NP-C Nurse Practitioner Active S tart: December 29, 2024 Mercedez Joseph NP-C Nurse Practitioner Active Start: December 29, 2024 SADIQ Paez Nurse Practitioner Active Start: December 29, 2024 Team Status: Active Member Role/Relationship Status Dates Dr. Yoseph Fall MD Primary care physician Active Start: December 29, 2024 Dr. Marcel Zarate MD Emergency Depart ment Physician Active Start: December 29, 2024 Dr. Dionne Porter MD Admitting physician Active Start: December 29, 2024 Dr. Dionne Porter MD Nurse Practitioner Active Start: December 29, 2024 Dr. Lynne Schafer MD Attending physician Active Start: December 29, 2024 Dr. Lynne Schafer MD Nurse Practitioner Active Start: December 29, 2024 Stacy Jha NP-C Nurse Practitioner Active Start: December Dr. Alessandro Palma MD Nurse Practitioner Active Start: December 29, 2024 Dr. Kyle Mendenhall DO Nurse Practitioner Active Start: December 29, 2024 STEFANIE Sifuentes Nurse Practitioner Active S tart: December 29, 2024 Mercedez Joseph NP-C Nurse Practitioner Active Start: December 29, 2024 SADIQ Paez Nurse Practitioner Active Start: December 29, 2024 Team Status: Active Member Role/Relationship Status Dates Dr. Yoseph Fall MD Primary care physician Active Start: December 30, 2024 Dr. Marcel Zarate MD Emergency Depart ment Physician Active Start: December 30, 2024 Dr. Dionne Porter MD Admitting physician Active Start: December 30, 2024 Dr. Dionne Porter MD Nurse Practitioner Active Start: December 30, 2024 Dr. Lynne Schafer MD Attending physician Active Start: December 30, 2024 Dr. Lynne Schafer MD Nurse Practitioner Active Start: December 30, 2024 Stacy Jha NP-C Nurse Practitioner Active Start: December Dr. Alessandro Palma MD Nurse Practitioner Active Start: December 30, 2024 Dr. Kyle Mendenhall DO Nurse Practitioner Active Start: December 30, 2024 Elma Mendez NP-Patrick Nurse Practitioner Active S tart: December 30, 2024 Mercedez Joseph SOUND EFFECTS TECHNICIAN-C Nurse Practitioner Active Start: December 30, 2024 SADIQ Paez Nurse Practitioner Active Start: December 30, 2024 Team Status: Active Member Role/Relationship Status Dates Dr. Yoseph Fall MD Primary care physician Active Start: January 12, 2025 Dr. Zaria Chen MD Attending physician Active Start: January 12, 2025 Team Status: Inactive Member Role/Relationship Status Dates Dr. Yoseph Fall MD Primary care physician Active Start: January 25, 2025 End: January 25, 2025 Dr. Mercy Flores DO Emergency Departm ent Physician Active Start: January 25, 2025 End: January 25, 2025 Team Status: Inactive Member Role/Relationship Status Dates Dr. Yoseph Fall MD Primary care physician Active Start: January 12, 2025 End: January 12, 2025 Dr. Zaria Chen MD Attending physician Active Start: January 12, 2025 End: January 12, 2025 Team Status: Active Member Role/Relationship Status Dates Dr. Yoseph Fall MD Primary care physician Active Start: January 25, 2025 Dr. Mercy Flores DO Emergency Depart ent Physician Active Start: January 25, 2025 Dr. Alessandro Palma MD Admitting physician Active Start: January 25, 2025 Dr. Alessandro Palma MD Attending physician Active Start: January 25, 2025 Dr. Rolo Torres MD Nurse Practitioner Active Start: January 25, 2025 Dr. James Huddleston MD Nurse Practitioner Active Sta rt: January 25, 2025 Dr. Deshaun Benites MD Nurse Practitioner Active Start: January 25, 2025 Dr. Andriy Guzmán DO Nurse Practitioner Active S tart: January 25, 2025 Dr. José May MD Nurse Practitioner Active Start: January 25, 2025 Dr. Sid Mortensen MD Nurse Practitioner Active Start: January 25, 2025 Dr. Octavio Jones MD Nurse Practitioner Active Start: January 25, 2025 Dr. Rubia Dumont MD Nurse Practitioner Active Start: January 25, 2025 Dr. Juni Wood MD Nurse Practitioner Active S tart: January 25, 2025 Dr. Nathan Ye MD Nurse Practitioner Active St art: January 25, 2025 Dr. Riley Wong MD Nurse Practitioner Active S tart: January 25, 2025 Dr. Heena Moore MD Nurse Practitioner Active Start: January 25, 2025 Dr. Sy Dumont MD Nurse Practitioner Active Start: January 25, 2025 Dr. Meggan Araujo MD Nurse Practitioner Active Start: January 25, 2025 Dr. Levi Mercado MD Nurse Practitioner Active Start: January 25, 2025 Dr. Jesus Thomas MD Nurse Practitioner Active Start: January 25, 2025 Dr. Shahriar Gonzalez MD Nurse Practitioner Active Start: January 25, 2025 Dr. Obed Isbell DO Nurse Practitioner Active Start: January 25, 2025 Dr. Juan A Bowles MD Nurse Practitioner Active St art: January 25, 2025 Dr. Rusty Corado MD Nurse Practitioner Active Start: January 25, 2025 Dr. Matthew Cobb , Nurse Practitioner Active Start: January 25, 2025 Dr. Murtaza Tamez MD Nurse Practitioner Active Start: January 25, 2025 Dr. Austin Pathak MD Nurse Practitioner Active Start: January 25, 2025 Dr. Jia Krishna MD Nurse Practitioner Active Start: January 25, 2025 Dr. Rob Augustin MD Nurse Practitioner Active Start: January 25, 2025 Susan Madison NP, SOUND EFFECTS TECHNICIAN-C Nurse Practitioner Active Start: January 25, 2025 Haylee Shafer NP-C Nurse Practitioner Active Start: January 25, 2025 Team Status: Active Member Role/Relationship Status Dates Dr. Yoseph Fall MD Primary care physician Active Start: January 25, 2025 Dr. Mercy Flores , Emergency Depart ent Physician Active Start: January 25, 2025 Dr. Alessandro Palma MD Admitting physician Active Start: January 25, 2025 Dr. Alessandro Palma MD Nurse Practitioner Active Start: January 25, 2025 Dr. Rolo Torres MD Nurse Practitioner Active Start: January 25, 2025 Dr. James Huddleston MD Nurse Practitioner Active Sta rt: January 25, 2025 Dr. Deshaun Benites MD Nurse Practitioner Active Start: January 25, 2025 Dr. Andriy Guzmán DO Attending physician Active Start: January 25, 2025 Dr. Andriy Guzmán DO Nurse Practitioner Active S tart: January 25, 2025 Dr. José May MD Nurse Practitioner Active Start: January 25, 2025 Dr. Sid Mortensen MD Nurse Practitioner Active Start: January 25, 2025 Dr. Octavio Jones MD Nurse Practitioner Active Start: January 25, 2025 Dr. Rubia Dumont MD Nurse Practitioner Active Start: January 25, 2025 Dr. Juni Wood MD Nurse Practitioner Active S tart: January 25, 2025 Dr. Nathan Ye MD Nurse Practitioner Active St art: January 25, 2025 Dr. Riley Wong MD Nurse Practitioner Active S tart: January 25, 2025 Dr. Heena Moore MD Nurse Practitioner Active Start: January 25, 2025 Dr. Sy Dumont MD Nurse Practitioner Active Start: January 25, 2025 Dr. Meggan Araujo MD Nurse Practitioner Active Start: January 25, 2025 Dr. Levi Mercado MD Nurse Practitioner Active Start: January 25, 2025 Dr. Jesus Thomas MD Nurse Practitioner Active Start: January 25, 2025 Dr. Shahriar Gonzalez MD Nurse Practitioner Active Start: January 25, 2025 Dr. Obed Isbell , DO Nurse Practitioner Active Start: January 25, 2025 Dr. Juan A Bowles MD Nurse Practitioner Active St art: January 25, 2025 Dr. Rusty Corado MD Nurse Practitioner Active Start: January 25, 2025 Dr. Matthew Cobb , Nurse Practitioner Active Start: January 25, 2025 Dr. Murtaza Tamez MD Nurse Practitioner Active Start: January 25, 2025 Dr. Austin Pathak MD Nurse Practitioner Active Start: January 25, 2025 Dr. Jia Krishna MD Nurse Practitioner Active Start: January 25, 2025 Dr. Rob Augustin MD Nurse Practitioner Active Start: January 25, 2025 Susan Madison NP, SOUND EFFECTS TECHNICIAN-C Nurse Practitioner Active Start: January 25, 2025 Haylee Shafer NP-C Nurse Practitioner Active Start: January 25, 2025 Team Status: Inactive Member Role/Relationship Status Dates Dr. Yoseph Fall MD Primary care physician Active Start: September 29, 2024 End: October 09, 2024 Dr. Riley Jeff DO Emergency Departme nt Physician Active Start: September 29, 2024 End: October 09, 2024 Dr. Dionne Porter MD Admitting physician Active Start: September 29, 2024 End: October 09, 2024 Dr. Dionne Porter MD Nurse Practitioner Active Start: September 29, 2024 End: October 09, 2024 Dr. Jan Bolanos MD Nurse Practitioner Active Start: September 29 End: October 09, 2024 Dr. Junito Madrid MD Nurse Practitioner Active Start: September 29, 2024 End: October 09, 2024 Dr. Alessandro Palma MD Attending physician Active Start: September 29, 2024 End: October 09, 2024 Dr. Lynne Schafer MD Nurse Practitioner Active Start: September 29, 2024 End: October 09, 2024 Team Status: Active Member Role/Relationship Status Dates Dr. Yoseph Fall MD Primary care physician Active Start: October 03, 2024 Dr. Riley Jeff , Emergency Departme nt Physician Active Start: October 03, 2024 Dr. Dionne Porter MD Admitting physician Active Start: October 03, 2024 Dr. Dionne Porter MD Nurse Practitioner Active Start: October 03, 2024 Dr. Lynne Schafer MD Nurse Practitioner Active Start: October 03, 2024 Dr. Jan Bolanos MD Nurse Practitioner Active Start: October 03 Dr. Junito Madrid MD Attending physician Active Start: October 03, 2024 Dr. Junito Madrid MD Nurse Practitioner Active Start: October 03, 2024 Team Status: Active Member Role/Relationship Status Dates Dr. Yoseph Fall MD Primary care physician Active Start: October 03, 2024 Dr. Riley Jeff , Emergency Departme nt Physician Active Start: October 03, 2024 Dr. Dionne Porter MD Admitting physician Active Start: October 03, 2024 Dr. Dionne Porter MD Nurse Practitioner Active Start: October 03, 2024 Dr. Lynne Schafer MD Attending physician Active Start: October 03, 2024 Dr. Lynne Schafer MD Nurse Practitioner Active Start: October 03, 2024 Dr. Jan Bolanos MD Nurse Practitioner Active Start: October 03 Dr. Junito Madrid MD Nurse Practitioner Active Start: October 03, 2024 Team Status: Active Member Role/Relationship Status Dates Dr. Yoseph Fall MD Primary care physician Active Start: October 04, 2024 Dr. Riley Jeff Emergency Departme nt Physician Active Start: October 04, 2024 Dr. Dionne Porter MD Admitting physician Active Start: October 04, 2024 Dr. Dionne Porter MD Nurse Practitioner Active Start: October 04, 2024 Dr. Lynne Schafer MD Nurse Practitioner Active Start: October 04, 2024 Dr. Jan Bolanos MD Nurse Practitioner Active Start: October 04 Dr. Junito Madrid MD Attending physician Active Start: October 04, 2024 Dr. Junito Madrid MD Nurse Practitioner Active Start: October 04, 2024 Team Status: Active Member Role/Relationship Status Dates Dr. Yoseph Fall MD Primary care physician Active Start: October 04, 2024 Dr. Riley Jeff , Emergency Departme nt Physician Active Start: October 04, 2024 Dr. Dionne Porter MD Admitting physician Active Start: October 04, 2024 Dr. Dionne Porter MD Nurse Practitioner Active Start: October 04, 2024 Dr. Lynne Schafer MD Attending physician Active Start: October 04, 2024 Dr. Lynne Schafer MD Nurse Practitioner Active Start: October 04, 2024 Dr. Jan Bolanos MD Nurse Practitioner Active Start: October 04 Dr. Junito Madrid MD Nurse Practitioner Active Start: October 04, 2024 Team Status: Active Member Role/Relationship Status Dates Dr. Yoseph Fall MD Primary care physician Active Start: October 05, 2024 Dr. Riley Jeff , Emergency Departme nt Physician Active Start: October 05, 2024 Dr. Dionne Porter MD Admitting physician Active Start: October 05, 2024 Dr. Dionne Porter MD Nurse Practitioner Active Start: October 05, 2024 Dr. Lynne Schafer MD Attending physician Active Start: October 05, 2024 Dr. Lynne Schafer MD Nurse Practitioner Active Start: October 05, 2024 Dr. Jan Bolanos MD Nurse Practitioner Active Start: October 05 Dr. Junito Madrid MD Nurse Practitioner Active Start: October 05, 2024 Team Status: Active Member Role/Relationship Status Dates Dr. Yoseph Fall MD Primary care physician Active Start: October 06, 2024 Dr. Riley Jeff , Emergency Departme nt Physician Active Start: October 06, 2024 Dr. Dionne Porter MD Admitting physician Active Start: October 06, 2024 Dr. Dionne Porter MD Nurse Practitioner Active Start: October 06, 2024 Dr. Lynne Schafer MD Nurse Practitioner Active Start: October 06, 2024 Dr. Jan Bolanos MD Nurse Practitioner Active Start: October 06 Dr. Junito Madrid MD Nurse Practitioner Active Start: October 06, 2024 Dr. Michael Plasencia MD Attending physician Active Start: October 06, 2024 Team Status: Active Member Role/Relationship Status Dates Dr. Yoseph Fall MD Primary care physician Active Start: October 06, 2024 Dr. Riley Jeff , Emergency Departme nt Physician Active Start: October 06, 2024 Dr. Dionne Porter MD Admitting physician Active Start: October 06, 2024 Dr. Dionne Proter MD Nurse Practitioner Active Start: October 06, 2024 Dr. Lynne Schafer MD Attending physician Active Start: October 06, 2024 Dr. Lynne Schafer MD Nurse Practitioner Active Start: October 06, 2024 Dr. Jan Bolanos MD Nurse Practitioner Active Start: October 06 Dr. Junito Madrid MD Nurse Practitioner Active Start: October 06, 2024 Team Status: Active Member Role/Relationship Status Dates Dr. Yoseph Fall MD Primary care physician Active Start: October 07, 2024 Dr. Riley Jeff , Emergency Departme nt Physician Active Start: October 07, 2024 Dr. Dionne Porter MD Admitting physician Active Start: October 07, 2024 Dr. Dionne Porter MD Nurse Practitioner Active Start: October 07, 2024 Dr. Lynne Schafer MD Nurse Practitioner Active Start: October 07, 2024 Dr. Jan Bolanos MD Nurse Practitioner Active Start: October 07 Dr. Junito Madrid MD Nurse Practitioner Active Start: October 07, 2024 Dr. Michael Plasencia MD Attending physician Active Start: October 07, 2024 Team Status: Active Member Role/Relationship Status Dates Dr. Yoseph Fall MD Primary care physician Active Start: October 07, 2024 Dr. Riley Jeff , Emergency Departme nt Physician Active Start: October 07, 2024 Dr. Dionne Porter MD Admitting physician Active Start: October 07, 2024 Dr. Dionne Porter MD Nurse Practitioner Active Start: October 07, 2024 Dr. Lynne Schafer MD Attending physician Active Start: October 07, 2024 Dr. Lynne Schafer MD Nurse Practitioner Active Start: October 07, 2024 Dr. Jan Bolanos MD Nurse Practitioner Active Start: October 07 Dr. Junito Madrid MD Nurse Practitioner Active Start: October 07, 2024 Team Status: Active Member Role/Relationship Status Dates Dr. Yoseph Fall MD Primary care physician Active Start: October 08, 2024 Dr. Riley Jeff , Emergency Departme nt Physician Active Start: October 08, 2024 Dr. Dionne Porter MD Admitting physician Active Start: October 08, 2024 Dr. Dionne Porter MD Nurse Practitioner Active Start: October 08, 2024 Dr. Lynne Schafer MD Nurse Practitioner Active Start: October 08, 2024 Dr. Jan Bolanos MD Nurse Practitioner Active Start: October 08 Dr. Junito Madrid MD Nurse Practitioner Active Start: October 08, 2024 Dr. Michael Plasencia MD Attending physician Active Start: October 08, 2024 Team Status: Active Member Role/Relationship Status Dates Dr. Yoseph Fall MD Primary care physician Active Start: October 08, 2024 Dr. Riley Jeff , Emergency Departhi nt Physician Active Start: October 08, 2024 Dr. Dionne Porter MD Admitting physician Active Start: October 08, 2024 Dr. Dionne Porter MD Nurse Practitioner Active Start: October 08, 2024 Dr. Lynne Schafer MD Attending physician Active Start: October 08, 2024 Dr. Lynne Schafer MD Nurse Practitioner Active Start: October 08, 2024 Dr. Jan Bolanos MD Nurse Practitioner Active Start: October 08 Dr. Junito Madrid MD Nurse Practitioner Active Start: October 08, 2024 Team Status: Active Member Role/Relationship Status Dates Dr. Yoseph Fall MD Primary care physician Active Start: October 09, 2024 Dr. Riley Jeff Emergency Departme nt Physician Active Start: October 09, 2024 Dr. Dionne Porter MD Admitting physician Active Start: October 09, 2024 Dr. Dionne Porter MD Nurse Practitioner Active Start: October 09, 2024 Dr. Jan Bolanos MD Nurse Practitioner Active Start: October 09 Dr. Junito Madrid MD Nurse Practitioner Active Start: October 09, 2024 Dr. Alessandro Palma MD Attending physician Active Start: October 09, 2024 Dr. Alessandro Palma MD Nurse Practitioner Active Start: October 09, 2024 Dr. Lynne Schafer MD Nurse Practitioner Active Start: October 09, 2024 Team Status: Inactive Member Role/Relationship Status Dates Dr. Yoseph Fall MD Primary care physician Active Start: November 03, 2024 End: November 03, 2024 Dr. Yoseph Fall MD Referring Provider Active Start: November 03, 2024 End: November 03, 2024 Lindsay BABCOCK, PA Attending physician Active Start: November 03, 2024 End: November 03, 2024 Team Status: Inactive Member Role/Relationship Status Dates Dr. Yoseph Fall MD Primary care physician Active Start: December 26, 2024 End: December 30, 2024 Dr. Marcel Zarate MD Emergency Depart ment Physician Active Start: December 26, 2024 End: December 30, 2024 Dr. Dionne Porter MD Admitting physician Active Start: December 26, 2024 End: December 30, 2024 Dr. Dionne Porter MD Nurse Practitioner Active Start: December 26, 2024 End: December 30, 2024 Dr. Lynne Schafer MD Attending physician Active Start: December 26, 2024 End: December 30, 2024 Stacy Jha SOUND EFFECTS TECHNICIAN-C Nurse Practitioner Active Start: December End: December 30, 2024 Dr. Alessandro Palma MD Nurse Practitioner Active Start: December 26, 2024 End: December 30, 2024 Dr. Kyle Mendenhall DO Nurse Practitioner Active Start: December 26, 2024 End: December 30, 2024 Elma Mendez SOUND EFFECTS TECHNICIAN-C Nurse Practitioner Active S tart: December 26, 2024 End: December 30, 2024 Mercedez Joseph SOUND EFFECTS TECHNICIAN-C Nurse Practitioner Active Start: December 26, 2024 End: December 30, 2024 SADIQ Paez Nurse Practitioner Active Start: December 26, 2024 End: December 30, 2024 Team Status: Active Member Role/Relationship Status Dates Dr. Yoseph Fall MD Primary care physician Active Start: December 26, 2024 Dr. Marcel Zarate MD Emergency Depart ment Physician Active Start: December 26, 2024 Dr. Dionne Porter MD Admitting physician Active Start: December 26, 2024 Dr. Dionne Porter MD Attending physician Active Start: December 26, 2024 Dr. Dionne Porter MD Nurse Practitioner Active Start: December 26, 2024 Team Status: Active Member Role/Relationship Status Dates Dr. Yoseph Fall MD Primary care physician Active Start: December 27, 2024 Dr. Marcel Zarate MD Emergency Depart ment Physician Active Start: December 27, 2024 Dr. Dionne Porter MD Admitting physician Active Start: December 27, 2024 Dr. Dionne Potrer MD Nurse Practitioner Active Start: December 27, 2024 Dr. Lynne Schafer MD Nurse Practitioner Active Start: December 27, 2024 Stacy Jha SOUND EFFECTS TECHNICIAN-C Attending physician Active Start: December Stacy Jha SOUND EFFECTS TECHNICIAN-C Nurse Practitioner Active Start: December Team Status: Active Member Role/Relationship Status Dates Dr. Yoseph Fall MD Primary care physician Active Start: December 27, 2024 Dr. Marcel Zarate MD Emergency Depart ment Physician Active Start: December 27, 2024 Dr. Dionne Porter MD Admitting physician Active Start: December 27, 2024 Dr. Dionne Porter MD Nurse Practitioner Active Start: December 27, 2024 Dr. Lynne Schafer MD Attending physician Active Start: December 27, 2024 Dr. Lynne Schafer MD Nurse Practitioner Active Start: December 27, 2024 Stacy Jha NP-C Nurse Practitioner Active Start: December Dr. Alessandro Palma MD Nurse Practitioner Active Start: December 27, 2024 Dr. Kyle Mendenhall DO Nurse Practitioner Active Start: December 27, 2024 Elma Mendez NP-C Nurse Practitioner Active S tart: December 27, 2024 Mercedez Joseph NP-C Nurse Practitioner Active Start: December 27, 2024 SADIQ Paez Nurse Practitioner Active Start: December 27, 2024 Team Status: Active Member Role/Relationship Status Dates Dr. Yoseph Fall MD Primary care physician Active Start: December 28, 2024 Dr. Marcel Zarate MD Emergency Depart ment Physician Active Start: December 28, 2024 Dr. Dionne Porter MD Admitting physician Active Start: December 28, 2024 Dr. Dionne Porter MD Nurse Practitioner Active Start: December 28, 2024 Dr. Lynne Schafer MD Nurse Practitioner Active Start: December 28, 2024 STEFANIE Clifford Attending physician Active Start: December STEFANIE Clifford Nurse Practitioner Active Start: December Dr. Alessandro Palma MD Nurse Practitioner Active Start: December 28, 2024 Dr. Kyle Mendenhall DO Nurse Practitioner Active Start: December 28, 2024 STEFANIE Sifuentes Nurse Practitioner Active S tart: December 28, 2024 STEFANIE Alexander Nurse Practitioner Active Start: December 28, 2024 SADIQ Paez Nurse Practitioner Active Start: December 28, 2024 Team Status: Active Member Role/Relationship Status Dates Dr. Yoseph Fall MD Primary care physician Active Start: December 28, 2024 Dr. Marcel Zarate MD Emergency Depart [facility] Physician Active Start: December 28, 2024 Dr. Dionne Porter MD Admitting physician Active Start: December 28, 2024 Dr. Dionne Porter MD Nurse Practitioner Active Start: December 28, 2024 Dr. Lynne Schafer MD Referring Provider Active Start: December 28, 2024 Dr. Lynne Schafer MD Nurse Practitioner Active Start: December 28, 2024 STEFANIE Clifford Nurse Practitioner Active Start: December Dr. Alessandro Palma MD Nurse Practitioner Active Start: December 28, 2024 Dr. Kyle Mendenhall DO Attending physician Active Start: December 28, 2024 Dr. Kyle Mendenhall DO Nurse Practitioner Active Start: December 28, 2024 STEFANIE Sifuentes Nurse Practitioner Active S tart: December 28, 2024 STEFANIE Alexander Nurse Practitioner Active Start: December 28, 2024 SADIQ Paez Nurse Practitioner Active Start: December 28, 2024 Team Status: Active Member Role/Relationship Status Dates Dr. Yoseph Fall MD Primary care physician Active Start: December 28, 2024 Dr. Marcel Zarate MD Emergency Depart [facility] Physician Active Start: December 28, 2024 Dr. Dionne Porter MD Admitting physician Active Start: December 28, 2024 Dr. Dionne Porter MD Nurse Practitioner Active Start: December 28, 2024 Dr. Lynne Schafer MD Attending physician Active Start: December 28, 2024 Dr. Lynne Schafer MD Nurse Practitioner Active Start: December 28, 2024 Stacy Jha NP-C Nurse Practitioner Active Start: December Dr. Alessandro Palma MD Nurse Practitioner Active Start: December 28, 2024 Dr. Kyle Mendenhall DO Nurse Practitioner Active Start: December 28, 2024 Elma Mendez NP-C Nurse Practitioner Active S tart: December 28, 2024 Mercedez Joseph NP-C Nurse Practitioner Active Start: December 28, 2024 SADIQ Paez Nurse Practitioner Active Start: December 28, 2024 Team Status: Active Member Role/Relationship Status Dates Dr. Yoseph Fall MD Primary care physician Active Start: December 29, 2024 Dr. Marcel Zarate MD Emergency Depart [facility] Physician Active Start: December 29, 2024 Dr. Dionne Porter MD Admitting physician Active Start: December 29, 2024 Dr. Dionne Porter MD Nurse Practitioner Active Start: December 29, 2024 Dr. Lynne Schafer MD Nurse Practitioner Active Start: December 29, 2024 Stacy Jha NP-C Attending physician Active Start: December Stacy Jha NP-C Nurse Practitioner Active Start: December Dr. Alessandro Palma MD Nurse Practitioner Active Start: December 29, 2024 Dr. Kyle Mendenhall DO Nurse Practitioner Active Start: December 29, 2024 Elma Mendez NP-C Nurse Practitioner Active S tart: December 29, 2024 MADDI AlexanderC Nurse Practitioner Active Start: December 29, 2024 SADIQ Paez Nurse Practitioner Active Start: December 29, 2024 Team Status: Active Member Role/Relationship Status Dates Dr. Yoseph Fall MD Primary care physician Active Start: December 29, 2024 Dr. Marcel Zarate MD Emergency Depart ment Physician Active Start: December 29, 2024 Dr. Dionne Porter MD Admitting physician Active Start: December 29, 2024 Dr. Dionne Porter MD Nurse Practitioner Active Start: December 29, 2024 Dr. Lynne Schafer MD Attending physician Active Start: December 29, 2024 Dr. Lynne Schafer MD Nurse Practitioner Active Start: December 29, 2024 Stacy Jha NP-C Nurse Practitioner Active Start: December Dr. Alessandro Palma MD Nurse Practitioner Active Start: December 29, 2024 Dr. Kyle Mendenhall DO Nurse Practitioner Active Start: December 29, 2024 Elma Mendez NP-C Nurse Practitioner Active S tart: December 29, 2024 Mercedez Joseph NP-C Nurse Practitioner Active Start: December 29, 2024 SADIQ Paez Nurse Practitioner Active Start: December 29, 2024 Team Status: Active Member Role/Relationship Status Dates Dr. Yoseph Fall MD Primary care physician Active Start: December 30, 2024 Dr. Marcel Zarate MD Emergency Depart [facility] Physician Active Start: December 30, 2024 Dr. Dionne Porter MD Admitting physician Active Start: December 30, 2024 Dr. Dionne Porter MD Nurse Practitioner Active Start: December 30, 2024 Dr. Lynne Schafer MD Attending physician Active Start: December 30, 2024 Dr. Lynne Schafer MD Nurse Practitioner Active Start: December 30, 2024 Stacy Jha NP-C Nurse Practitioner Active Start: December Dr. Alessandro Palma MD Nurse Practitioner Active Start: December 30, 2024 Dr. Kyle Mendenhall DO Nurse Practitioner Active Start: December 30, 2024 Elma Mendez NP-C Nurse Practitioner Active S tart: December 30, 2024 Mercedez Joseph NP-C Nurse Practitioner Active Start: December 30, 2024 SADIQ Paez Nurse Practitioner Active Start: December 30, 2024 Team Status: Inactive Member Role/Relationship Status Dates Dr. Yoseph Fall MD Primary care physician Active Start: January 12, 2025 End: January 12, 2025 Dr. Zaria Chen MD Attending physician Active Start: January 12, 2025 End: January 12, 2025 Team Status: Inactive Member Role/Relationship Status Dates Dr. Yoseph Fall MD Primary care physician Active Start: January 25, 2025 End: January 31, 2025 Dr. Mercy Flores DO Emergency Depart ent Physician Active Start: January 25, 2025 End: January 31, 2025 Dr. Alessandro Palma MD Admitting physician Active Start: January 25, 2025 End: January 31, 2025 Dr. Alessandro Palma MD Nurse Practitioner Active Start: January 25, 2025 End: January 31, 2025 Dr. Debby Gu MD Attending physician Active Start: January 25, 2025 End: January 31, 2025 Dr. Rolo Torres MD Nurse Practitioner Active Start: January 25, 2025 Dr. James Huddleston MD Nurse Practitioner Active Sta rt: January 25, 2025 Dr. Deshaun Benites MD Nurse Practitioner Active Start: January 25, 2025 Dr. Andriy Guzmán , Nurse Practitioner Active S tart: January 25, 2025 Dr. José May MD Nurse Practitioner Active Start: January 25, 2025 Dr. Sid Mortensen MD Nurse Practitioner Active Start: January 25, 2025 Dr. Octavio Jones MD Nurse Practitioner Active Start: January 25, 2025 Dr. Rubia Dumont MD Nurse Practitioner Active Start: January 25, 2025 Dr. Juni Wood MD Nurse Practitioner Active S tart: January 25, 2025 Dr. Nathan Ye MD Nurse Practitioner Active St art: January 25, 2025 Dr. Riley Wong MD Nurse Practitioner Active S tart: January 25, 2025 Dr. Heena Moore MD Nurse Practitioner Active Start: January 25, 2025 Dr. Sy Dumont MD Nurse Practitioner Active Start: January 25, 2025 Dr. Meggan Araujo MD Nurse Practitioner Active Start: January 25, 2025 Dr. Levi Mercado MD Nurse Practitioner Active Start: January 25, 2025 Dr. Jesus Thomas MD Nurse Practitioner Active Start: January 25, 2025 Dr. Shahriar Gonzalez MD Nurse Practitioner Active Start: January 25, 2025 Dr. Obed Isbell DO Nurse Practitioner Active Start: January 25, 2025 Dr. Juan A Bowles MD Nurse Practitioner Active St art: January 25, 2025 Dr. Rusty Corado MD Nurse Practitioner Active Start: January 25, 2025 Dr. Matthew Cobb DO Nurse Practitioner Active Start: January 25, 2025 Dr. Murtaza Tamez MD Nurse Practitioner Active Start: January 25, 2025 Dr. Austin Pathak MD Nurse Practitioner Active Start: January 25, 2025 Dr. Jia Krishna MD Nurse Practitioner Active Start: January 25, 2025 Dr. Rob Augustin MD Nurse Practitioner Active Start: January 25, 2025 Susan Madison NP, SOUND EFFECTS TECHNICIAN-C Nurse Practitioner Active Start: January 25, 2025 Haylee Shafer , SOUND EFFECTS TECHNICIAN-C Nurse Practitioner Active Start: January 25, 2025 Team Status: Active Member Role/Relationship Status Dates Dr. Yoseph Fall MD Primary care physician Active Start: January 25, 2025 Dr. Mercy Flores DO Emergency Depart ent Physician Active Start: January 25, 2025 Dr. Aelssandro Palma MD Admitting physician Active Start: January 25, 2025 Dr. Alessandro Palma MD Nurse Practitioner Active Start: January 25, 2025 Dr. Rolo Torres MD Nurse Practitioner Active Start: January 25, 2025 Dr. James Huddleston MD Nurse Practitioner Active Sta rt: January 25, 2025 Dr. Deshaun Benites MD Nurse Practitioner Active Start: January 25, 2025 Dr. Andriy Guzmán DO Attending physician Active Start: January 25, 2025 Dr. Andriy Guzmán DO Nurse Practitioner Active S tart: January 25, 2025 Dr. José May MD Nurse Practitioner Active Start: January 25, 2025 Dr. Sid Mortensen MD Nurse Practitioner Active Start: January 25, 2025 Dr. Octavio Jones MD Nurse Practitioner Active Start: January 25, 2025 Dr. Rubia Dmuont MD Nurse Practitioner Active Start: January 25, 2025 Dr. Juni Wood MD Nurse Practitioner Active S tart: January 25, 2025 Dr. Nathan Ye MD Nurse Practitioner Active St art: January 25, 2025 Dr. Riley Wong MD Nurse Practitioner Active S tart: January 25, 2025 Dr. Heena Moore MD Nurse Practitioner Active Start: January 25, 2025 Dr. Sy Dumont MD Nurse Practitioner Active Start: January 25, 2025 Dr. Meggan Araujo MD Nurse Practitioner Active Start: January 25, 2025 Dr. Levi Mercado MD Nurse Practitioner Active Start: January 25, 2025 Dr. Jesus Thomas MD Nurse Practitioner Active Start: January 25, 2025 Dr. Shahriar Gonzalez MD Nurse Practitioner Active Start: January 25, 2025 Dr. Obed Isbell , DO Nurse Practitioner Active Start: January 25, 2025 Dr. Juan A Bowles MD Nurse Practitioner Active St art: January 25, 2025 Dr. Rusty Corado MD Nurse Practitioner Active Start: January 25, 2025 Dr. Matthew Cobb , DO Nurse Practitioner Active Start: January 25, 2025 Dr. Murtaza Tamez MD Nurse Practitioner Active Start: January 25, 2025 Dr. Austin Pathak MD Nurse Practitioner Active Start: January 25, 2025 Dr. Jia Krishna MD Nurse Practitioner Active Start: January 25, 2025 Dr. Rob Augustin MD Nurse Practitioner Active Start: January 25, 2025 Susan Madison NP, SOUND EFFECTS TECHNICIAN-C Nurse Practitioner Active Start: January 25, 2025 Haylee Shafer SOUND EFFECTS TECHNICIAN-C Nurse Practitioner Active Start: January 25, 2025 Team Status: Active Member Role/Relationship Status Dates Dr. Yoseph Fall MD Primary care physician Active Start: January 26, 2025 Dr. Mercy Flores DO Emergency Departm ent Physician Active Start: January 26, 2025 Dr. Alessandro Palma MD Admitting physician Active Start: January 26, 2025 Dr. Alessandro Palma MD Nurse Practitioner Active Start: January 26, 2025 Dr. Rolo Torres MD Nurse Practitioner Active Start: January 26, 2025 Dr. James Huddleston MD Nurse Practitioner Active Sta rt: January 26, 2025 Dr. Deshaun Benites MD Nurse Practitioner Active Start: January 26, 2025 Dr. Andriy Guzmán , Nurse Practitioner Active S tart: January 26, 2025 Dr. José May MD Nurse Practitioner Active Start: January 26, 2025 Dr. Sid Mortensen MD Nurse Practitioner Active Start: January 26, 2025 Dr. Octavio Jones MD Nurse Practitioner Active Start: January 26, 2025 Dr. Rubia Dumont MD Nurse Practitioner Active Start: January 26, 2025 Dr. Juni Wood MD Nurse Practitioner Active S tart: January 26, 2025 Dr. Nathan Ye MD Nurse Practitioner Active St art: January 26, 2025 Dr. Riley Wong MD Nurse Practitioner Active S tart: January 26, 2025 Dr. Heena Moore MD Nurse Practitioner Active Start: January 26, 2025 Dr. Sy Dumont MD Nurse Practitioner Active Start: January 26, 2025 Dr. Meggan Araujo MD Nurse Practitioner Active Start: January 26, 2025 Dr. Levi Mercado MD Nurse Practitioner Active Start: January 26, 2025 Dr. Jesus Thomas MD Nurse Practitioner Active Start: January 26, 2025 Dr. Shahriar Gonzalez MD Nurse Practitioner Active Start: January 26, 2025 Dr. Obed Isbell DO Nurse Practitioner Active Start: January 26, 2025 Dr. Juan A Bowles MD Nurse Practitioner Active St art: January 26, 2025 Dr. Rusty Corado MD Nurse Practitioner Active Start: January 26, 2025 Dr. Matthew Cobb DO Nurse Practitioner Active Start: January 26, 2025 Dr. Murtaza Tamez MD Nurse Practitioner Active Start: January 26, 2025 Dr. Austin Pathak MD Nurse Practitioner Active Start: January 26, 2025 Dr. Jia Krishna MD Nurse Practitioner Active Start: January 26, 2025 Dr. Rob Augustin MD Nurse Practitioner Active Start: January 26, 2025 Susan Madison SOUND EFFECTS TECHNICIAN, SOUND EFFECTS TECHNICIAN-C Nurse Practitioner Active Start: January 26, 2025 Haylee Shafer NP-C Nurse Practitioner Active Start: January 26, 2025 Dr. Dionne Porter MD Attending physician Active Start: January 26, 2025 Team Status: Active Member Role/Relationship Status Dates Dr. Yoseph Fall MD Primary care physician Active Start: January 26, 2025 Dr. Mercy Flores DO Emergency Departm ent Physician Active Start: January 26, 2025 Dr. Alessandro Palma MD Admitting physician Active Start: January 26, 2025 Dr. Alessandro Palma MD Nurse Practitioner Active Start: January 26, 2025 Dr. Rolo Torres MD Nurse Practitioner Active Start: January 26, 2025 Dr. James Huddleston MD Nurse Practitioner Active Sta rt: January 26, 2025 Dr. Deshaun Benites MD Nurse Practitioner Active Start: January 26, 2025 Dr. Andriy Guzmán DO Attending physician Active Start: January 26, 2025 Dr. Andriy Guzmán DO Nurse Practitioner Active S tart: January 26, 2025 Dr. José May MD Nurse Practitioner Active Start: January 26, 2025 Dr. Sid Mortensen MD Nurse Practitioner Active Start: January 26, 2025 Dr. Octavio Jones MD Nurse Practitioner Active Start: January 26, 2025 Dr. Rubia Dumont MD Nurse Practitioner Active Start: January 26, 2025 Dr. Juni Wood MD Nurse Practitioner Active S tart: January 26, 2025 Dr. Nathan Ye MD Nurse Practitioner Active St art: January 26, 2025 Dr. Riley Wong MD Nurse Practitioner Active S tart: January 26, 2025 Dr. Heena Moore MD Nurse Practitioner Active Start: January 26, 2025 Dr. Sy Dumont MD Nurse Practitioner Active Start: January 26, 2025 Dr. Meggan Araujo MD Nurse Practitioner Active Start: January 26, 2025 Dr. Levi Mercado MD Nurse Practitioner Active Start: January 26, 2025 Dr. Jesus Thomas MD Nurse Practitioner Active Start: January 26, 2025 Dr. Shahriar Gonzalez MD Nurse Practitioner Active Start: January 26, 2025 Dr. Obed Isbell , Nurse Practitioner Active Start: January 26, 2025 Dr. Juan A Bowles MD Nurse Practitioner Active St art: January 26, 2025 Dr. Rusty Corado MD Nurse Practitioner Active Start: January 26, 2025 Dr. Matthew Cobb DO Nurse Practitioner Active Start: January 26, 2025 Dr. Murtaza Tamez MD Nurse Practitioner Active Start: January 26, 2025 Dr. Austin Pathak MD Nurse Practitioner Active Start: January 26, 2025 Dr. Jia Krishna MD Nurse Practitioner Active Start: January 26, 2025 Dr. Rob Augustin MD Nurse Practitioner Active Start: January 26, 2025 Susan Madison SOUND EFFECTS TECHNICIAN, SOUND EFFECTS TECHNICIAN-C Nurse Practitioner Active Start: January 26, 2025 Haylee Shafer NP-C Nurse Practitioner Active Start: January 26, 2025 Dr. Amy Keenan MD Nurse Practitioner Active Start: January 26, 2025 Team Status: Active Member Role/Relationship Status Dates Dr. Yoseph Fall MD Primary care physician Active Start: January 26, 2025 Dr. Mercy Flores DO Emergency Departm ent Physician Active Start: January 26, 2025 Dr. Alessandro Palma MD Admitting physician Active Start: January 26, 2025 Dr. Alessandro Palma MD Nurse Practitioner Active Start: January 26, 2025 Dr. Rolo Torres MD Nurse Practitioner Active Start: January 26, 2025 Dr. James Huddleston MD Nurse Practitioner Active Sta rt: January 26, 2025 Dr. Deshaun Benites MD Nurse Practitioner Active Start: January 26, 2025 Dr. Andriy Guzmán , Nurse Practitioner Active S tart: January 26, 2025 Dr. José May MD Nurse Practitioner Active Start: January 26, 2025 Dr. Sid Mortensen MD Nurse Practitioner Active Start: January 26, 2025 Dr. Octavio Jones MD Nurse Practitioner Active Start: January 26, 2025 Dr. Rubia Dumont MD Nurse Practitioner Active Start: January 26, 2025 Dr. Juni Wood MD Nurse Practitioner Active S tart: January 26, 2025 Dr. Nathan Ye MD Nurse Practitioner Active St art: January 26, 2025 Dr. Riley Wong MD Nurse Practitioner Active S tart: January 26, 2025 Dr. Heena Moore MD Nurse Practitioner Active Start: January 26, 2025 Dr. Sy Dumont MD Nurse Practitioner Active Start: January 26, 2025 Dr. Meggan Araujo MD Nurse Practitioner Active Start: January 26, 2025 Dr. Levi Mercado MD Nurse Practitioner Active Start: January 26, 2025 Dr. Jesus Thomas MD Nurse Practitioner Active Start: January 26, 2025 Dr. Shahriar Gonzalez MD Nurse Practitioner Active Start: January 26, 2025 Dr. Obed Isbell , Nurse Practitioner Active Start: January 26, 2025 Dr. Juan A Bowles MD Nurse Practitioner Active St art: January 26, 2025 Dr. Rusty Corado MD Nurse Practitioner Active Start: January 26, 2025 Dr. Matthew Cobb , Nurse Practitioner Active Start: January 26, 2025 Dr. Murtaza Tamez MD Nurse Practitioner Active Start: January 26, 2025 Dr. Austin Pathak MD Nurse Practitioner Active Start: January 26, 2025 Dr. Jia Krishna MD Nurse Practitioner Active Start: January 26, 2025 Dr. Rob Augustin MD Nurse Practitioner Active Start: January 26, 2025 Susan Madison SOUND EFFECTS TECHNICIAN, SOUND EFFECTS TECHNICIAN-C Nurse Practitioner Active Start: January 26, 2025 Haylee Shafer , SOUND EFFECTS TECHNICIAN-C Nurse Practitioner Active Start: January 26, 2025 Dr. Amy Keenan MD Attending physician Active Start: January 26, 2025 Dr. Amy Keenan MD Nurse Practitioner Active Start: January 26, 2025 Team Status: Active Member Role/Relationship Status Dates Dr. Yoseph Fall MD Primary care physician Active Start: January 27, 2025 Dr. Mercy Flores DO Emergency Depart ent Physician Active Start: January 27, 2025 Dr. Alessandro Palma MD Admitting physician Active Start: January 27, 2025 Dr. Alessandro Palma MD Nurse Practitioner Active Start: January 27, 2025 Dr. Rolo Torres MD Nurse Practitioner Active Start: January 27, 2025 Dr. James Huddleston MD Nurse Practitioner Active Sta rt: January 27, 2025 Dr. Deshaun Benites MD Nurse Practitioner Active Start: January 27, 2025 Dr. Andriy Guzmán DO Nurse Practitioner Active S tart: January 27, 2025 Dr. José May MD Nurse Practitioner Active Start: January 27, 2025 Dr. Sid Mortensen MD Nurse Practitioner Active Start: January 27, 2025 Dr. Octavio Jones MD Nurse Practitioner Active Start: January 27, 2025 Dr. Rubia Dumont MD Nurse Practitioner Active Start: January 27, 2025 Dr. Juni Wood MD Nurse Practitioner Active S tart: January 27, 2025 Dr. Nathan Ye MD Nurse Practitioner Active St art: January 27, 2025 Dr. Riley Wong MD Nurse Practitioner Active S tart: January 27, 2025 Dr. Heena Moore MD Nurse Practitioner Active Start: January 27, 2025 Dr. Sy Dumont MD Nurse Practitioner Active Start: January 27, 2025 Dr. Meggan Araujo MD Nurse Practitioner Active Start: January 27, 2025 Dr. Levi Mercado MD Nurse Practitioner Active Start: January 27, 2025 Dr. Jesus Thomas MD Nurse Practitioner Active Start: January 27, 2025 Dr. Shahriar Gonzalez MD Nurse Practitioner Active Start: January 27, 2025 Dr. Obed Isbell , Nurse Practitioner Active Start: January 27, 2025 Dr. Juan A Bowles MD Nurse Practitioner Active St art: January 27, 2025 Dr. Rusty Corado MD Nurse Practitioner Active Start: January 27, 2025 Dr. Matthew Cobb , Nurse Practitioner Active Start: January 27, 2025 Dr. Murtaza Tamez MD Nurse Practitioner Active Start: January 27, 2025 Dr. Austin Pathak MD Nurse Practitioner Active Start: January 27, 2025 Dr. Jia Krishna MD Nurse Practitioner Active Start: January 27, 2025 Dr. Rob Augustin MD Nurse Practitioner Active Start: January 27, 2025 Susan Madison NP, SOUND EFFECTS TECHNICIAN-C Nurse Practitioner Active Start: January 27, 2025 Haylee Shafer SOUND EFFECTS TECHNICIAN-C Nurse Practitioner Active Start: January 27, 2025 Dr. Amy Keenan MD Nurse Practitioner Active Start: January 27, 2025 Dr. Debby Gu MD Attending physician Active Start: January 27, 2025 Dr. Debby Gu MD Nurse Practitioner Active Start: January 27, 2025 Team Status: Active Member Role/Relationship Status Dates Dr. Yoseph Fall MD Primary care physician Active Start: January 28, 2025 Dr. Mercy Flores DO Emergency Departm ent Physician Active Start: January 28, 2025 Dr. Alessandro Palma MD Admitting physician Active Start: January 28, 2025 Dr. Alessandro Palma MD Nurse Practitioner Active Start: January 28, 2025 Dr. Rolo Torres MD Nurse Practitioner Active Start: January 28, 2025 Dr. James Huddleston MD Nurse Practitioner Active Sta rt: January 28, 2025 Dr. Deshaun Benites MD Nurse Practitioner Active Start: January 28, 2025 Dr. Andriy Guzmán DO Nurse Practitioner Active S tart: January 28, 2025 Dr. José May MD Nurse Practitioner Active Start: January 28, 2025 Dr. Sid Mortensen MD Nurse Practitioner Active Start: January 28, 2025 Dr. Octavio Jones MD Nurse Practitioner Active Start: January 28, 2025 Dr. Rubia Dumont MD Nurse Practitioner Active Start: January 28, 2025 Dr. Juni Wood MD Nurse Practitioner Active S tart: January 28, 2025 Dr. Nathan Ye MD Nurse Practitioner Active St art: January 28, 2025 Dr. Riley Wong MD Nurse Practitioner Active S tart: January 28, 2025 Dr. Heena Moore MD Nurse Practitioner Active Start: January 28, 2025 Dr. Sy Dumont MD Nurse Practitioner Active Start: January 28, 2025 Dr. Meggan Araujo MD Nurse Practitioner Active Start: January 28, 2025 Dr. Levi Mercado MD Nurse Practitioner Active Start: January 28, 2025 Dr. Jesus Thomas MD Nurse Practitioner Active Start: January 28, 2025 Dr. Shahriar Gonzalez MD Nurse Practitioner Active Start: January 28, 2025 Dr. Obed Isbell DO Nurse Practitioner Active Start: January 28, 2025 Dr. Juan A Bowles MD Nurse Practitioner Active St art: January 28, 2025 Dr. Rusty Corado MD Nurse Practitioner Active Start: January 28, 2025 Dr. Matthew Cobb DO Nurse Practitioner Active Start: January 28, 2025 Dr. Murtaza Tamez MD Nurse Practitioner Active Start: January 28, 2025 Dr. Austin Pathak MD Nurse Practitioner Active Start: January 28, 2025 Dr. Jia Krishna MD Nurse Practitioner Active Start: January 28, 2025 Dr. Rob Augustin MD Nurse Practitioner Active Start: January 28, 2025 Susan Madison SOUND EFFECTS TECHNICIAN, SOUND EFFECTS TECHNICIAN-C Nurse Practitioner Active Start: January 28, 2025 Haylee Shafer SOUND EFFECTS TECHNICIAN-C Nurse Practitioner Active Start: January 28, 2025 Dr. Amy Keenan MD Nurse Practitioner Active Start: January 28, 2025 Dr. Debby Gu MD Attending physician Active Start: January 28, 2025 Dr. Debby Gu MD Nurse Practitioner Active Start: January 28, 2025 Team Status: Active Member Role/Relationship Status Dates Dr. Yoseph Fall MD Primary care physician Active Start: January 29, 2025 Dr. Mercy Flores , Emergency Depart ent Physician Active Start: January 29, 2025 Dr. Alessandro Palma MD Admitting physician Active Start: January 29, 2025 Dr. Alessandro Palma MD Nurse Practitioner Active Start: January 29, 2025 Dr. Amy Keenan MD Nurse Practitioner Active Start: January 29, 2025 Dr. Debby Gu MD Nurse Practitioner Active Start: January 29, 2025 Dr. Andriy Guzmán DO Attending physician Active Start: January 29, 2025 Team Status: Active Member Role/Relationship Status Dates Dr. Yoseph Fall MD Primary care physician Active Start: January 29, 2025 Dr. Mercy Flores DO Emergency Departm ent Physician Active Start: January 29, 2025 Dr. Alessandro Palma MD Admitting physician Active Start: January 29, 2025 Dr. Alessandro Palma MD Nurse Practitioner Active Start: January 29, 2025 Dr. Amy Keenan MD Nurse Practitioner Active Start: January 29, 2025 Dr. Debby Gu MD Attending physician Active Start: January 29, 2025 Dr. Debby Gu MD Nurse Practitioner Active Start: January 29, 2025 Team Status: Active Member Role/Relationship Status Dates Dr. Yoseph Fall MD Primary care physician Active Start: January 30, 2025 Dr. Mercy Flores DO Emergency Departm ent Physician Active Start: January 30, 2025 Dr. Alessandro Palma MD Admitting physician Active Start: January 30, 2025 Dr. Alessandro Palma MD Nurse Practitioner Active Start: January 30, 2025 Dr. Debby Gu MD Attending physician Active Start: January 30, 2025 Dr. Debby Gu MD Nurse Practitioner Active Start: January 30, 2025 Team Status: Active Member Role/Relationship Status Dates Dr. Yoseph Fall MD Primary care physician Active Start: January 31, 2025 Dr. Mercy Flores DO Emergency Departm ent Physician Active Start: January 31, 2025 Dr. Alessandro Palma MD Admitting physician Active Start: January 31, 2025 Dr. Alessandro Palma MD Nurse Practitioner Active Start: January 31, 2025 Dr. Debby Gu MD Attending physician Active Start: January 31, 2025 Dr. Debby Gu MD Nurse Practitioner Active Start: January 31, 2025 Team Status: Inactive Member Role/Relationship Status Dates Dr. Yoseph Fall MD Primary care physician Active Start: November 03, 2024 End: November 03, 2024 Dr. Yoseph Fall MD Referring Provider Active Start: November 03, 2024 End: November 03, 2024 Lindsay BABCOCK, PA Attending physician Active Start: November 03, 2024 End: November 03, 2024 Team Status: Inactive Member Role/Relationship Status Dates Dr. Yoseph Fall MD Primary care physician Active Start: December 26, 2024 End: December 30, 2024 Dr. Marcel Zarate MD Emergency Depart [facility] Physician Active Start: December 26, 2024 End: December 30, 2024 Dr. Dionne Porter MD Admitting physician Active Start: December 26, 2024 End: December 30, 2024 Dr. Dionne Porter MD Nurse Practitioner Active Start: December 26, 2024 End: December 30, 2024 Dr. Lynne Schafer MD Attending physician Active Start: December 26, 2024 End: December 30, 2024 Stacy Jha SOUND EFFECTS TECHNICIAN-C Nurse Practitioner Active Start: December End: December 30, 2024 Dr. Alessandro Palma MD Nurse Practitioner Active Start: December 26, 2024 End: December 30, 2024 Dr. Kyle Mendenhall DO Nurse Practitioner Active Start: December 26, 2024 End: December 30, 2024 Elma Mendez NP-C Nurse Practitioner Active S tart: December 26, 2024 End: December 30, 2024 Mercedez Joseph SOUND EFFECTS TECHNICIAN-C Nurse Practitioner Active Start: December 26, 2024 End: December 30, 2024 SADIQ Paez Nurse Practitioner Active Start: December 26, 2024 End: December 30, 2024 Team Status: Active Member Role/Relationship Status Dates Dr. Yoseph Fall MD Primary care physician Active Start: December 26, 2024 Dr. Marcel Zarate MD Emergency Depart ment Physician Active Start: December 26, 2024 Dr. Dionne Porter MD Admitting physician Active Start: December 26, 2024 Dr. Dionne Porter MD Attending physician Active Start: December 26, 2024 Dr. Dionne Porter MD Nurse Practitioner Active Start: December 26, 2024 Team Status: Active Member Role/Relationship Status Dates Dr. Yoseph Fall MD Primary care physician Active Start: December 27, 2024 Dr. Marcel Zarate MD Emergency Depart ment Physician Active Start: December 27, 2024 Dr. Dionne Porter MD Admitting physician Active Start: December 27, 2024 Dr. Dionne Porter MD Nurse Practitioner Active Start: December 27, 2024 Dr. Lynne Schafer MD Nurse Practitioner Active Start: December 27, 2024 Stacy Jha , SOUND EFFECTS TECHNICIAN-C Attending physician Active Start: December Stacy Jha , SOUND EFFECTS TECHNICIAN-C Nurse Practitioner Active Start: December Team Status: Active Member Role/Relationship Status Dates Dr. Yoseph Fall MD Primary care physician Active Start: December 27, 2024 Dr. Macrel Zarate MD Emergency Depart ment Physician Active Start: December 27, 2024 Dr. Dionne Porter MD Admitting physician Active Start: December 27, 2024 Dr. Dionne Porter MD Nurse Practitioner Active Start: December 27, 2024 Dr. Lynne Schafer MD Attending physician Active Start: December 27, 2024 Dr. Lynne Schafer MD Nurse Practitioner Active Start: December 27, 2024 Stacy Jha SOUND EFFECTS TECHNICIAN-C Nurse Practitioner Active Start: December Dr. Alessandro Palma MD Nurse Practitioner Active Start: December 27, 2024 Dr. Kyle Mendenhall DO Nurse Practitioner Active Start: December 27, 2024 Elma Mendez NP-C Nurse Practitioner Active S tart: December 27, 2024 Mercedez Joseph NP-C Nurse Practitioner Active Start: December 27, 2024 SADIQ Paez Nurse Practitioner Active Start: December 27, 2024 Team Status: Active Member Role/Relationship Status Dates Dr. Yoseph Fall MD Primary care physician Active Start: December 28, 2024 Dr. Marcel Zarate MD Emergency Depart ment Physician Active Start: December 28, 2024 Dr. Dionne Porter MD Admitting physician Active Start: December 28, 2024 Dr. Dionne Porter MD Nurse Practitioner Active Start: December 28, 2024 Dr. Lynne Schafer MD Nurse Practitioner Active Start: December 28, 2024 Stacy Jha SOUND EFFECTS TECHNICIAN-C Attending physician Active Start: December Stacy Jha NP-C Nurse Practitioner Active Start: December Dr. Alessandro Palma MD Nurse Practitioner Active Start: December 28, 2024 Dr. Kyle Mendenhall DO Nurse Practitioner Active Start: December 28, 2024 MADDI SifuentesC Nurse Practitioner Active S tart: December 28, 2024 Mercedez Joseph NP-C Nurse Practitioner Active Start: December 28, 2024 SADIQ Paez Nurse Practitioner Active Start: December 28, 2024 Team Status: Active Member Role/Relationship Status Dates Dr. Yoseph Fall MD Primary care physician Active Start: December 28, 2024 Dr. Marcel Zarate MD Emergency Depart ment Physician Active Start: December 28, 2024 Dr. Dionne Porter MD Admitting physician Active Start: December 28, 2024 Dr. Dionne Porter MD Nurse Practitioner Active Start: December 28, 2024 Dr. Lynne Schafer MD Referring Provider Active Start: December 28, 2024 Dr. Lynne Schafer MD Nurse Practitioner Active Start: December 28, 2024 Stacy Jha NP-C Nurse Practitioner Active Start: December Dr. Alessandro Palma MD Nurse Practitioner Active Start: December 28, 2024 Dr. Kyle Mendenhall DO Attending physician Active Start: December 28, 2024 Dr. Kyle Mendenhall DO Nurse Practitioner Active Start: December 28, 2024 STEFANIE Sifuentes Nurse Practitioner Active S tart: December 28, 2024 Mercedez Joseph NP-C Nurse Practitioner Active Start: December 28, 2024 SADIQ Paez Nurse Practitioner Active Start: December 28, 2024 Team Status: Active Member Role/Relationship Status Dates Dr. Yoseph Fall MD Primary care physician Active Start: December 28, 2024 Dr. Marcel Zarate MD Emergency Depart ment Physician Active Start: December 28, 2024 Dr. Dionne Porter MD Admitting physician Active Start: December 28, 2024 Dr. Dionne Porter MD Nurse Practitioner Active Start: December 28, 2024 Dr. Lynne Schafer MD Attending physician Active Start: December 28, 2024 Dr. Lynne Schafer MD Nurse Practitioner Active Start: December 28, 2024 Stacy Jha NP-C Nurse Practitioner Active Start: December Dr. Alessandro Palma MD Nurse Practitioner Active Start: December 28, 2024 Dr. Kyle Mendenhall DO Nurse Practitioner Active Start: December 28, 2024 MADDI SifuentesC Nurse Practitioner Active S tart: December 28, 2024 Mercedez Joseph NP-C Nurse Practitioner Active Start: December 28, 2024 SADIQ Paez Nurse Practitioner Active Start: December 28, 2024 Team Status: Active Member Role/Relationship Status Dates Dr. Yoseph Fall MD Primary care physician Active Start: December 29, 2024 Dr. Marcel Zarate MD Emergency Depart [facility] Physician Active Start: December 29, 2024 Dr. Dionne Porter MD Admitting physician Active Start: December 29, 2024 Dr. Dionne Porter MD Nurse Practitioner Active Start: December 29, 2024 Dr. Lynne Schafer MD Nurse Practitioner Active Start: December 29, 2024 Stacy Jha NP-Patrick Attending physician Active Start: December Stacy Jha NP-C Nurse Practitioner Active Start: December Dr. Alessandro Palma MD Nurse Practitioner Active Start: December 29, 2024 Dr. Kyle Mendenhall DO Nurse Practitioner Active Start: December 29, 2024 Elma Mendez NP-C Nurse Practitioner Active S tart: December 29, 2024 Mercedez Joseph SOUND EFFECTS TECHNICIAN-C Nurse Practitioner Active Start: December 29, 2024 SADIQ Paez Nurse Practitioner Active Start: December 29, 2024 Team Status: Active Member Role/Relationship Status Dates Dr. Yoseph Fall MD Primary care physician Active Start: December 29, 2024 Dr. Marcel Zarate MD Emergency Depart [facility] Physician Active Start: December 29, 2024 Dr. Dionne Porter MD Admitting physician Active Start: December 29, 2024 Dr. Dionne Porter MD Nurse Practitioner Active Start: December 29, 2024 Dr. Lynne Schafer MD Attending physician Active Start: December 29, 2024 Dr. Lynne Schafer MD Nurse Practitioner Active Start: December 29, 2024 MADDI CliffordC Nurse Practitioner Active Start: December Dr. Alessandro Palma MD Nurse Practitioner Active Start: December 29, 2024 Dr. Kyle Mendenhall DO Nurse Practitioner Active Start: December 29, 2024 STEFANIE Sifuentes Nurse Practitioner Active S tart: December 29, 2024 MADDI AlexanderC Nurse Practitioner Active Start: December 29, 2024 SADIQ Paez Nurse Practitioner Active Start: December 29, 2024 Team Status: Active Member Role/Relationship Status Dates Dr. Yoseph Fall MD Primary care physician Active Start: December 30, 2024 Dr. Marcel Zarate MD Emergency Depart ment Physician Active Start: December 30, 2024 Dr. Dionne Porter MD Admitting physician Active Start: December 30, 2024 Dr. Dionne oPrter MD Nurse Practitioner Active Start: December 30, 2024 Dr. Lynne Schafer MD Attending physician Active Start: December 30, 2024 Dr. Lynne Schafer MD Nurse Practitioner Active Start: December 30, 2024 Stacy Jha NP-C Nurse Practitioner Active Start: December Dr. Alessandro Palma MD Nurse Practitioner Active Start: December 30, 2024 Dr. Kyle Mendenhall DO Nurse Practitioner Active Start: December 30, 2024 STEFANIE Sifuentes Nurse Practitioner Active S tart: December 30, 2024 Mercedez Joseph NP-C Nurse Practitioner Active Start: December 30, 2024 SADIQ Paez Nurse Practitioner Active Start: December 30, 2024 Team Status: Inactive Member Role/Relationship Status Dates Dr. Yoseph Fall MD Primary care physician Active Start: January 12, 2025 End: January 12, 2025 Dr. Zaria Chen MD Attending physician Active Start: January 12, 2025 End: January 12, 2025 Team Status: Inactive Member Role/Relationship Status Dates Dr. Yoseph Fall MD Primary care physician Active Start: January 25, 2025 End: January 31, 2025 Dr. Mercy Flores DO Emergency Departm ent Physician Active Start: January 25, 2025 End: January 31, 2025 Dr. Alessandro Palma MD Admitting physician Active Start: January 25, 2025 End: January 31, 2025 Dr. Alessandro Palma MD Nurse Practitioner Active Start: January 25, 2025 End: January 31, 2025 Dr. Debyb Gu MD Attending physician Active Start: January 25, 2025 End: January 31, 2025 Dr. Rolo Torres MD Nurse Practitioner Active Start: January 25, 2025 Dr. James Huddleston MD Nurse Practitioner Active Sta rt: January 25, 2025 Dr. Deshaun Benites MD Nurse Practitioner Active Start: January 25, 2025 Dr. Andriy Guzmán , Nurse Practitioner Active S tart: January 25, 2025 Dr. José May MD Nurse Practitioner Active Start: January 25, 2025 Dr. Sid Mortensen MD Nurse Practitioner Active Start: January 25, 2025 Dr. Octavio Jones MD Nurse Practitioner Active Start: January 25, 2025 Dr. Rubia Dumont MD Nurse Practitioner Active Start: January 25, 2025 Dr. Juni Wood MD Nurse Practitioner Active S tart: January 25, 2025 Dr. Nathan Ye MD Nurse Practitioner Active St art: January 25, 2025 Dr. Riley Wong MD Nurse Practitioner Active S tart: January 25, 2025 Dr. Heena Moore MD Nurse Practitioner Active Start: January 25, 2025 Dr. Sy Dumont MD Nurse Practitioner Active Start: January 25, 2025 Dr. Meggan Araujo MD Nurse Practitioner Active Start: January 25, 2025 Dr. Levi Mercado MD Nurse Practitioner Active Start: January 25, 2025 Dr. Jesus Thomas MD Nurse Practitioner Active Start: January 25, 2025 Dr. Shahriar Gonzalez MD Nurse Practitioner Active Start: January 25, 2025 Dr. Obed Isbell DO Nurse Practitioner Active Start: January 25, 2025 Dr. Juan A Bowles MD Nurse Practitioner Active St art: January 25, 2025 Dr. Rusty Corado MD Nurse Practitioner Active Start: January 25, 2025 Dr. Matthew Cobb DO Nurse Practitioner Active Start: January 25, 2025 Dr. Murtaza Tamez MD Nurse Practitioner Active Start: January 25, 2025 Dr. Austin Pathak MD Nurse Practitioner Active Start: January 25, 2025 Dr. Jia Krishna MD Nurse Practitioner Active Start: January 25, 2025 Dr. Rob Augustin MD Nurse Practitioner Active Start: January 25, 2025 Susan Madison NP, SOUND EFFECTS TECHNICIAN-C Nurse Practitioner Active Start: January 25, 2025 Haylee Shafer NP-C Nurse Practitioner Active Start: January 25, 2025 Team Status: Active Member Role/Relationship Status Dates Dr. Yoseph Fall MD Primary care physician Active Start: January 25, 2025 Dr. Mercy Flores , Emergency Departm ent Physician Active Start: January 25, 2025 Dr. Alessandro Palma MD Admitting physician Active Start: January 25, 2025 Dr. Alessandro Palma MD Referring Provider Active Start: January 25, 2025 Dr. Alessandro Palma MD Nurse Practitioner Active Start: January 25, 2025 Dr. Rolo Torres MD Nurse Practitioner Active Start: January 25, 2025 Dr. James Huddleston MD Nurse Practitioner Active Sta rt: January 25, 2025 Dr. Deshaun Benites MD Nurse Practitioner Active Start: January 25, 2025 Dr. Andriy Guzmán DO Attending physician Active Start: January 25, 2025 Dr. Andriy Guzmán DO Nurse Practitioner Active S tart: January 25, 2025 Dr. José May MD Nurse Practitioner Active Start: January 25, 2025 Dr. Sid Mortensen MD Nurse Practitioner Active Start: January 25, 2025 Dr. Octavio Jones MD Nurse Practitioner Active Start: January 25, 2025 Dr. Rubia Dumont MD Nurse Practitioner Active Start: January 25, 2025 Dr. Juni Wood MD Nurse Practitioner Active S tart: January 25, 2025 Dr. Nathan Ye MD Nurse Practitioner Active St art: January 25, 2025 Dr. Riley Wong MD Nurse Practitioner Active S tart: January 25, 2025 Dr. Heena Moore MD Nurse Practitioner Active Start: January 25, 2025 Dr. Sy Dumont MD Nurse Practitioner Active Start: January 25, 2025 Dr. Meggan Araujo MD Nurse Practitioner Active Start: January 25, 2025 Dr. Levi Mercado MD Nurse Practitioner Active Start: January 25, 2025 Dr. Jesus Thomas MD Nurse Practitioner Active Start: January 25, 2025 Dr. Shahriar Gonzalez MD Nurse Practitioner Active Start: January 25, 2025 Dr. Obed Isbell , DO Nurse Practitioner Active Start: January 25, 2025 Dr. Juan A Bowles MD Nurse Practitioner Active St art: January 25, 2025 Dr. Rusty Corado MD Nurse Practitioner Active Start: January 25, 2025 Dr. Matthew Cobb , DO Nurse Practitioner Active Start: January 25, 2025 Dr. Murtaza Tamez MD Nurse Practitioner Active Start: January 25, 2025 Dr. Austin Pathak MD Nurse Practitioner Active Start: January 25, 2025 Dr. Jia Krishna MD Nurse Practitioner Active Start: January 25, 2025 Dr. Rob Augustin MD Nurse Practitioner Active Start: January 25, 2025 Susan Madison SOUND EFFECTS TECHNICIAN, SOUND EFFECTS TECHNICIAN-C Nurse Practitioner Active Start: January 25, 2025 Haylee Shafer NP-C Nurse Practitioner Active Start: January 25, 2025 Team Status: Active Member Role/Relationship Status Dates Dr. Yoseph Fall MD Primary care physician Active Start: January 26, 2025 Dr. Mercy Flores , Emergency Depart ent Physician Active Start: January 26, 2025 Dr. Alessandro Palma MD Admitting physician Active Start: January 26, 2025 Dr. Alessandro Palma MD Nurse Practitioner Active Start: January 26, 2025 Dr. Rolo Torres MD Nurse Practitioner Active Start: January 26, 2025 Dr. James Huddleston MD Nurse Practitioner Active Sta rt: January 26, 2025 Dr. Deshaun Benites MD Nurse Practitioner Active Start: January 26, 2025 Dr. Andriy Guzmán DO Nurse Practitioner Active S tart: January 26, 2025 Dr. José May MD Nurse Practitioner Active Start: January 26, 2025 Dr. Sid Mortensen MD Nurse Practitioner Active Start: January 26, 2025 Dr. Octavio Jones MD Nurse Practitioner Active Start: January 26, 2025 Dr. Rubia Dumont MD Nurse Practitioner Active Start: January 26, 2025 Dr. Juni Wood MD Nurse Practitioner Active S tart: January 26, 2025 Dr. Nathan Ye MD Nurse Practitioner Active St art: January 26, 2025 Dr. Riley Wong MD Nurse Practitioner Active S tart: January 26, 2025 Dr. Heena Moore MD Nurse Practitioner Active Start: January 26, 2025 Dr. Sy Dumont MD Nurse Practitioner Active Start: January 26, 2025 Dr. Meggan Araujo MD Nurse Practitioner Active Start: January 26, 2025 Dr. Levi Mercado MD Nurse Practitioner Active Start: January 26, 2025 Dr. Jesus Thomas MD Nurse Practitioner Active Start: January 26, 2025 Dr. Shahriar Gonzalez MD Nurse Practitioner Active Start: January 26, 2025 Dr. Obed Isbell DO Nurse Practitioner Active Start: January 26, 2025 Dr. Juan A Bowles MD Nurse Practitioner Active St art: January 26, 2025 Dr. Rusty Corado MD Nurse Practitioner Active Start: January 26, 2025 Dr. Matthew Cobb , Nurse Practitioner Active Start: January 26, 2025 Dr. Murtaza Tamez MD Nurse Practitioner Active Start: January 26, 2025 Dr. Austin Pathak MD Nurse Practitioner Active Start: January 26, 2025 Dr. Jia Krishna MD Nurse Practitioner Active Start: January 26, 2025 Dr. Rob Augustin MD Nurse Practitioner Active Start: January 26, 2025 Susan Madison NP, SOUND EFFECTS TECHNICIAN-C Nurse Practitioner Active Start: January 26, 2025 Haylee Shafer NP-C Nurse Practitioner Active Start: January 26, 2025 Dr. Dionne Porter MD Attending physician Active Start: January 26, 2025 Team Status: Active Member Role/Relationship Status Dates Dr. Yoseph Fall MD Primary care physician Active Start: January 26, 2025 Dr. Mercy Flores DO Emergency Departm ent Physician Active Start: January 26, 2025 Dr. Alessandro Palma MD Admitting physician Active Start: January 26, 2025 Dr. Alessandro Palma MD Nurse Practitioner Active Start: January 26, 2025 Dr. Rolo Torres MD Nurse Practitioner Active Start: January 26, 2025 Dr. James Huddleston MD Nurse Practitioner Active Sta rt: January 26, 2025 Dr. Deshaun Benites MD Nurse Practitioner Active Start: January 26, 2025 Dr. Andriy Guzmán DO Attending physician Active Start: January 26, 2025 Dr. Andriy Guzmán DO Nurse Practitioner Active S tart: January 26, 2025 Dr. José May MD Nurse Practitioner Active Start: January 26, 2025 Dr. Sid Mortensen MD Nurse Practitioner Active Start: January 26, 2025 Dr. Octavio Jones MD Nurse Practitioner Active Start: January 26, 2025 Dr. Rubia Dumont MD Nurse Practitioner Active Start: January 26, 2025 Dr. Juni Wood MD Nurse Practitioner Active S tart: January 26, 2025 Dr. Nathan Ye MD Nurse Practitioner Active St art: January 26, 2025 Dr. Riley Wong MD Nurse Practitioner Active S tart: January 26, 2025 Dr. Heena Moore MD Nurse Practitioner Active Start: January 26, 2025 Dr. Sy Dumont MD Nurse Practitioner Active Start: January 26, 2025 Dr. Meggan Araujo MD Nurse Practitioner Active Start: January 26, 2025 Dr. Levi Mercado MD Nurse Practitioner Active Start: January 26, 2025 Dr. Jesus Thomas MD Nurse Practitioner Active Start: January 26, 2025 Dr. Shahriar Gonzalez MD Nurse Practitioner Active Start: January 26, 2025 Dr. Obed Isbell , DO Nurse Practitioner Active Start: January 26, 2025 Dr. Juan A Bowles MD Nurse Practitioner Active St art: January 26, 2025 Dr. Rusty Corado MD Nurse Practitioner Active Start: January 26, 2025 Dr. Matthew Cobb DO Nurse Practitioner Active Start: January 26, 2025 Dr. Murtaza Tamez MD Nurse Practitioner Active Start: January 26, 2025 Dr. Austin Pathak MD Nurse Practitioner Active Start: January 26, 2025 Dr. Jia Krishna MD Nurse Practitioner Active Start: January 26, 2025 Dr. Rob Augustin MD Nurse Practitioner Active Start: January 26, 2025 Susan Madison SOUND EFFECTS TECHNICIAN, SOUND EFFECTS TECHNICIAN-C Nurse Practitioner Active Start: January 26, 2025 Haylee Shafer NP-C Nurse Practitioner Active Start: January 26, 2025 Dr. Amy Keenan MD Nurse Practitioner Active Start: January 26, 2025 Dr. Debby Gu MD Referring Provider Active Start: January 26, 2025 Team Status: Active Member Role/Relationship Status Dates Dr. Yoseph Fall MD Primary care physician Active Start: January 26, 2025 Dr. Mercy Flores , Emergency Departm ent Physician Active Start: January 26, 2025 Dr. Alessandro Palma MD Admitting physician Active Start: January 26, 2025 Dr. Alessandro Palma MD Nurse Practitioner Active Start: January 26, 2025 Dr. Rolo Torres MD Nurse Practitioner Active Start: January 26, 2025 Dr. James Huddleston MD Nurse Practitioner Active Sta rt: January 26, 2025 Dr. Deshaun Benites MD Nurse Practitioner Active Start: January 26, 2025 Dr. Andriy Guzmán DO Nurse Practitioner Active S tart: January 26, 2025 Dr. José May MD Nurse Practitioner Active Start: January 26, 2025 Dr. Sid Mortensen MD Nurse Practitioner Active Start: January 26, 2025 Dr. Octavio Jones MD Nurse Practitioner Active Start: January 26, 2025 Dr. Rubia Dumont MD Nurse Practitioner Active Start: January 26, 2025 Dr. Juni Wood MD Nurse Practitioner Active S tart: January 26, 2025 Dr. Nathan Ye MD Nurse Practitioner Active St art: January 26, 2025 Dr. Riley Wong MD Nurse Practitioner Active S tart: January 26, 2025 Dr. Heena Moore MD Nurse Practitioner Active Start: January 26, 2025 Dr. Sy Dumont MD Nurse Practitioner Active Start: January 26, 2025 Dr. Meggan Araujo MD Nurse Practitioner Active Start: January 26, 2025 Dr. Levi Mercado MD Nurse Practitioner Active Start: January 26, 2025 Dr. Jesus Thomas MD Nurse Practitioner Active Start: January 26, 2025 Dr. Shahriar Gonzalez MD Nurse Practitioner Active Start: January 26, 2025 Dr. Obed Isbell , Nurse Practitioner Active Start: January 26, 2025 Dr. Juan A Bowles MD Nurse Practitioner Active St art: January 26, 2025 Dr. Rusty Corado MD Nurse Practitioner Active Start: January 26, 2025 Dr. Matthew Cobb , Nurse Practitioner Active Start: January 26, 2025 Dr. Murtaza Tamez MD Nurse Practitioner Active Start: January 26, 2025 Dr. Austin Pathak MD Nurse Practitioner Active Start: January 26, 2025 Dr. Jia Krishna MD Nurse Practitioner Active Start: January 26, 2025 Dr. Rob Augustin MD Nurse Practitioner Active Start: January 26, 2025 Susan Madison NP, SOUND EFFECTS TECHNICIAN-C Nurse Practitioner Active Start: January 26, 2025 Haylee Shafer , SOUND EFFECTS TECHNICIAN-C Nurse Practitioner Active Start: January 26, 2025 Dr. Amy Keenan MD Attending physician Active Start: January 26, 2025 Dr. Amy Keenan MD Nurse Practitioner Active Start: January 26, 2025 Team Status: Active Member Role/Relationship Status Dates Dr. Yoseph Fall MD Primary care physician Active Start: January 27, 2025 Dr. Mercy Flores , Emergency Departm ent Physician Active Start: January 27, 2025 Dr. Alessandro Palma MD Admitting physician Active Start: January 27, 2025 Dr. Alessandro Palma MD Nurse Practitioner Active Start: January 27, 2025 Dr. Rolo Torres MD Nurse Practitioner Active Start: January 27, 2025 Dr. James Huddleston MD Nurse Practitioner Active Sta rt: January 27, 2025 Dr. Deshaun Benites MD Nurse Practitioner Active Start: January 27, 2025 Dr. Andriy Guzmán DO Nurse Practitioner Active S tart: January 27, 2025 Dr. José May MD Nurse Practitioner Active Start: January 27, 2025 Dr. Sid Mortensen MD Nurse Practitioner Active Start: January 27, 2025 Dr. Octavio Jones MD Nurse Practitioner Active Start: January 27, 2025 Dr. Rubia Dumont MD Nurse Practitioner Active Start: January 27, 2025 Dr. Juni Wood MD Nurse Practitioner Active S tart: January 27, 2025 Dr. Nathan Ye MD Nurse Practitioner Active St art: January 27, 2025 Dr. Riley Wong MD Nurse Practitioner Active S tart: January 27, 2025 Dr. Heena Moore MD Nurse Practitioner Active Start: January 27, 2025 Dr. Sy Dumont MD Nurse Practitioner Active Start: January 27, 2025 Dr. Meggan Araujo MD Nurse Practitioner Active Start: January 27, 2025 Dr. Levi Mercado MD Nurse Practitioner Active Start: January 27, 2025 Dr. Jesus Thomas MD Nurse Practitioner Active Start: January 27, 2025 Dr. Shahriar Gonzalez MD Nurse Practitioner Active Start: January 27, 2025 Dr. Obed Isbell , Nurse Practitioner Active Start: January 27, 2025 Dr. Juan A Bowles MD Nurse Practitioner Active St art: January 27, 2025 Dr. Rusty Corado MD Nurse Practitioner Active Start: January 27, 2025 Dr. Matthew Cobb , Nurse Practitioner Active Start: January 27, 2025 Dr. Murtaza Tamez MD Nurse Practitioner Active Start: January 27, 2025 Dr. Austin Pathak MD Nurse Practitioner Active Start: January 27, 2025 Dr. Jia Krishna MD Nurse Practitioner Active Start: January 27, 2025 Dr. Rob Augustin MD Nurse Practitioner Active Start: January 27, 2025 Susan Madison NP, SOUND EFFECTS TECHNICIAN-C Nurse Practitioner Active Start: January 27, 2025 Haylee Shafer SOUND EFFECTS TECHNICIAN-C Nurse Practitioner Active Start: January 27, 2025 Dr. Amy Keenan MD Nurse Practitioner Active Start: January 27, 2025 Dr. Debby Gu MD Attending physician Active Start: January 27, 2025 Dr. Debby Gu MD Nurse Practitioner Active Start: January 27, 2025 Team Status: Active Member Role/Relationship Status Dates Dr. Yoseph Fall MD Primary care physician Active Start: January 28, 2025 Dr. Mercy Flores DO Emergency Departm ent Physician Active Start: January 28, 2025 Dr. Alessandro Palma MD Admitting physician Active Start: January 28, 2025 Dr. Alessandro Palma MD Nurse Practitioner Active Start: January 28, 2025 Dr. Rolo Torres MD Nurse Practitioner Active Start: January 28, 2025 Dr. James Huddleston MD Nurse Practitioner Active Sta rt: January 28, 2025 Dr. Deshaun Benites MD Nurse Practitioner Active Start: January 28, 2025 Dr. Andriy Guzmán DO Nurse Practitioner Active S tart: January 28, 2025 Dr. José May MD Nurse Practitioner Active Start: January 28, 2025 Dr. Sid Mortensen MD Nurse Practitioner Active Start: January 28, 2025 Dr. Octavio Jones MD Nurse Practitioner Active Start: January 28, 2025 Dr. Rubia Dumont MD Nurse Practitioner Active Start: January 28, 2025 Dr. Juni Wood MD Nurse Practitioner Active S tart: January 28, 2025 Dr. Nathan Ye MD Nurse Practitioner Active St art: January 28, 2025 Dr. Riley Wong MD Nurse Practitioner Active S tart: January 28, 2025 Dr. Heena Moore MD Nurse Practitioner Active Start: January 28, 2025 Dr. Sy Dumont MD Nurse Practitioner Active Start: January 28, 2025 Dr. Meggan Araujo MD Nurse Practitioner Active Start: January 28, 2025 Dr. Levi Mercado MD Nurse Practitioner Active Start: January 28, 2025 Dr. Jesus Thomas MD Nurse Practitioner Active Start: January 28, 2025 Dr. Shahriar Gonzalez MD Nurse Practitioner Active Start: January 28, 2025 Dr. Obed Isbell DO Nurse Practitioner Active Start: January 28, 2025 Dr. Juan A Bowles MD Nurse Practitioner Active St art: January 28, 2025 Dr. Rusty Corado MD Nurse Practitioner Active Start: January 28, 2025 Dr. Matthew Cobb DO Nurse Practitioner Active Start: January 28, 2025 Dr. Murtaza Tamez MD Nurse Practitioner Active Start: January 28, 2025 Dr. Austin Pathak MD Nurse Practitioner Active Start: January 28, 2025 Dr. Jia Krishna MD Nurse Practitioner Active Start: January 28, 2025 Dr. Rob Augustin MD Nurse Practitioner Active Start: January 28, 2025 Susan Madison SOUND EFFECTS TECHNICIAN, SOUND EFFECTS TECHNICIAN-C Nurse Practitioner Active Start: January 28, 2025 Haylee Shafer SOUND EFFECTS TECHNICIAN-C Nurse Practitioner Active Start: January 28, 2025 Dr. Amy Keenan MD Nurse Practitioner Active Start: January 28, 2025 Dr. Debby Gu MD Attending physician Active Start: January 28, 2025 Dr. Debby Gu MD Nurse Practitioner Active Start: January 28, 2025 Team Status: Active Member Role/Relationship Status Dates Dr. Yoseph Fall MD Primary care physician Active Start: January 29, 2025 Dr. Mercy Flores , Emergency Depart ent Physician Active Start: January 29, 2025 Dr. Alessandro Palma MD Admitting physician Active Start: January 29, 2025 Dr. Alessandro Palma MD Nurse Practitioner Active Start: January 29, 2025 Dr. Amy Keenan MD Nurse Practitioner Active Start: January 29, 2025 Dr. Debby Gu MD Referring Provider Active Start: January 29, 2025 Dr. Debby Gu MD Nurse Practitioner Active Start: January 29, 2025 Dr. Andriy Guzmán DO Attending physician Active Start: January 29, 2025 Team Status: Active Member Role/Relationship Status Dates Dr. Yoseph Fall MD Primary care physician Active Start: January 29, 2025 Dr. Mercy Flores DO Emergency Departm ent Physician Active Start: January 29, 2025 Dr. Alessandro Palma MD Admitting physician Active Start: January 29, 2025 Dr. Alessandro Palma MD Nurse Practitioner Active Start: January 29, 2025 Dr. Amy Keenan MD Nurse Practitioner Active Start: January 29, 2025 Dr. Debby Gu MD Attending physician Active Start: January 29, 2025 Dr. Debby Gu MD Nurse Practitioner Active Start: January 29, 2025 Team Status: Active Member Role/Relationship Status Dates Dr. Yoseph Fall MD Primary care physician Active Start: January 30, 2025 Dr. Mercy Flores DO Emergency Departm ent Physician Active Start: January 30, 2025 Dr. Alessandro Palma MD Admitting physician Active Start: January 30, 2025 Dr. Alessandro Palma MD Nurse Practitioner Active Start: January 30, 2025 Dr. Debby Gu MD Attending physician Active Start: January 30, 2025 Dr. Debby Gu MD Nurse Practitioner Active Start: January 30, 2025 Team Status: Active Member Role/Relationship Status Dates Dr. Yoseph Fall MD Primary care physician Active Start: January 31, 2025 Dr. Mercy Flores DO Emergency Departm ent Physician Active Start: January 31, 2025 Dr. Alessandro Palma MD Admitting physician Active Start: January 31, 2025 Dr. Alessandro Palma MD Nurse Practitioner Active Start: January 31, 2025 Dr. Debby Gu MD Attending physician Active Start: January 31, 2025 Dr. Debby Gu MD Nurse Practitioner Active Start: January 31, 2025 Team Status: Active Member Role/Relationship Status Dates Dr. Yoseph Fall MD Primary care physician Active Start: February 01, 2025 Dr. Jessica TRAMMELL MD Attending physician Active Start: February 01, 2025 Team Status: Active Member Role/Relationship Status Dates Dr. Yoseph Fall MD Primary care physician Active Start: February 06, 2025 Dr. Jessica TRAMMELL MD Attending physician Active Start: February 06, 2025 Team Status: Active Member Role/Relationship Status Dates Dr. Yoseph Fall MD Primary care physician Active Start: February 08, 2025 Dr. Jessica TRAMMELL MD Attending physician Active Start: February 08, 2025 Team Status: Inactive Member Role/Relationship Status Dates Dr. Yoseph Fall MD Primary care physician Active Start: February 08, 2025 End: February 08, 2025 Dr. Yoseph Fall MD Referring Provider Active Start: February 08, 2025 End: February 08, 2025 Ingris Irwin SOUND EFFECTS TECHNICIAN, SOUND EFFECTS TECHNICIAN-C Attending physician Active Start: February 08, 2025 End: February 08, 2025 Team Status: Active Member Role/Relationship Status Dates Dr. Yoseph Fall MD Primary care physician Active Start: February 13, 2025 Dr. Jessica TRAMMELL MD Attending physician Active Start: February 13, 2025 Dr. Jessica TRAMMELL MD Referring Provider Active Start: February 13, 2025 Reason for Visit (unrecogniz ed section and [...] [employer] Michelle Marie MD [address] [place] [address] [facility] [place] [address] [place] [address] Referral ID Status Reason Start Date Expiration Date V isits Requested Visits Authorized [id number] Closed Auto-Generate d Referral 01/13/2022 02/12/2023 1 [...] Comments Medication Problem Patient Update Reason Comments [facility] patient update Reason Onset Date Comments Transition Of Care 10/10/2024 Reason Onset Date Comments Refill Request 10/11/2024 Reason Comments PT Delay in Care Order Reason Onset Date Comments Refill Request 10/12/2024 Reason Comments Hospital F/U [facility] Reason Comments Orders Occupation Therapy Plan of care SW Consu lt Physical Therapy Plan of Care Reason Comments Patient Update Reason Comments pall med- [id number] Initial Consult Reason Comments Home Care Management Refill Request Reason Comments order question Reason Comments No Show Specialty Diagnoses / Procedures Referred By Contac t Referred To Contact Hospice & Palliative Medicine Diagnoses Stage 3 severe COPD by GOLD classification ([facility]) Generalized osteoarthrosis, involving multiple sites Generalized anxiety disorder Chronic low back pain with sciatica, sciatica laterality unspecified, unspecified back pain laterality Procedures CONSULT TO PALLIATIVE CARE OFFICE/OUTPATIENT [facility] 60 MINUTES Yoseph Fall MD [address] [place] [address] Phone: tel: fax: Referral ID Status Reason Start Date Expiration Date V isits Requested Visits Authorized [id number] Closed PCP Requested Referral 10/20/2024 10/20/2025 1 1 Reason Comments Patient Request Patient Update Specialty Diagnoses / Procedures Referred By Contac t Referred To Contact Hospice & Palliative Medicine Diagnoses Stage 3 severe COPD by GOLD classification (HCC) Chronic low back pain with sciatica, sciatica laterality unspecified, unspecified back pain laterality Procedures CONSULT TO PALLIATIVE CARE OFFICE/OUTPATIENT [facility] 60 MINUTES Yoseph Fall MD [address] [place] [address] Phone: tel: fax: Referral ID Status Reason Start Date Expiration Date V isits Requested Visits Authorized [id number] Closed PCP Requested Referral 10/23/2024 10/23/2025 1 1 Reason Comments Symptom Management Reason Onset Date Comments Refill Request 11/23/2024 Reason Comments Care Coordination Reason Comments [facility] Nursing Call Reason Onset Date Comments [...] Intraprocedure 1208 (Given - Provid er: Rolo Arboleda RN) iopamidol (Isovue-300) 61 % injection (CANCELED) As needed, Starting on Wed01/05/25 at 1218, Intraprocedure 1218 (Given - Provid er: Zaria Shea MD) lidocaine (Xylocaine) 1 % injection (CANCELED) As needed, Starting on Wed01/05/25 at 1202, Intraprocedure 1202 (Given - Provid er: Octavia Luther MD) midazolam (Versed) injection (CANCELED) IntraVENous, As needed, Starting on Wed01/05/25 at 1148, Intraprocedure 1148 (Given - Provid er: Mercedez Colon, RN)1207 (Given - Provider: Rolo Arboleda RN) [...] ized section and content) DATE CREATED AUTHOR 01/30/2025 [facility] DATE CREATED AUTHOR AUTHOR'S ORGANIZ ATION 02/14/2025 [facility] DATE CREATED AUTHOR AUTHOR'S SHARITA ATION 02/20/2025 [facility] FOR RECORDS PERTAINING TO PATIENTS WHO [...] BE BASED ON THE PRIMARY CLINICAL RECORDS. [facility]. provides no warranty or guarantee of the accuracy or completeness of information in this document.
[2025-02-24] MEDS: Pantoprazole Sodium 40 MG in 0.9% Normal Saline (100mL MB+) 100 ML 300 MG IV (13:44)
[2025-02-24 13:56] LABS: SITE Not entered; VBG BASE EXCESS 11 mmol/L (-1.0-3.5); VBG PO2 52 mmHg (25-40); VBG SO2 71 % (50-70); VBG TCO2 43 mmol/L (23-33)
[2025-02-24 13:59] LABS: Anion Gap 7 (5-15); BUN 25 mg/dL (4-19); BUN/Creat Ratio 52.3 RATIO (10-20); Calcium,Total 8.8 mg/dL (7.6-11.0); Carbon Dioxide 37.0 mmol/L (21.0-32.0); Chloride 92 mmol/L (98-108); Estimated Creatinine Clearance 57.31 ml/min (50-250); Glucose 141 mg/dL (70-99); Potassium 5.0 mmol/L (3.3-5.1); Pro- Brain NATRIURETIC PEPTIDE 1746 pg/mL (<=900); Troponin T High Sensitivity 27 ng/L (<=14)
[2025-02-24] MEDS: 0.9% Normal Saline (1000mL) 1,000 ML 999 ML IV ×2 (14:41→21:14)
--- NOTE | 2025-02-24 15:10 | CT_ITS ---
PROCEDURE: BRAIN/HEAD WITHOUT CONTRAST 02/24/2025 REASON FOR EXAM: AMS TECHNIQUE: Procedure Code: CTBR Modality: CT Procedure: BRAIN/HEAD WITHOUT CONTRAST Coronal and Sagittal reconstruction series were provided. One or more dose reduction techniques were used (e.g., Automated exposure control, adjustment of the mA and/or kV according to patient size, use of iterative reconstruction technique. RADIATION DOSE SUMMARY: CTDlvol: 44.99, 16.62, 13.02, 18.34 mGy DLP: 2180 mGycm COMPARISON: 01/25/2025 FINDINGS: BRAIN: No acute intraparenchymal hemorrhage. No mass lesion. No CT evidence for acute territorial infarct. No midline shift or extra-axial collection. Patchy periventricular white matter low attenuation, likely microvascular ischemic changes. VENTRICLES: No hydrocephalus. ORBITS: The orbits are unremarkable. SINUSES AND MASTOIDS: Small left maxillary sinus retention cyst/polyp. The mastoid air cells are clear. SOFT TISSUES: Minimal swelling in the left parietal scalp BONES: No acute osseous abnormality seen. OTHER: Calcified carotid siphons and vertebral arteries. CT/Brain/Head without Contrast IMPRESSION: 1. No acute intracranial abnormality. 2. Minimal left parietal scalp soft tissue swelling. Reading Location: [id number]
--- NOTE | 2025-02-24 15:10 | CT_ITS ---
PROCEDURE: ABDOMEN/PELVIS W IV CONT ONLY 02/24/2025 REASON FOR EXAM: POOR HISTORY, POSSIBLE HEMATEMESIS TECHNIQUE: Procedure Code: [id number] Modality: CT Procedure: ABDOMEN/PELVIS W IV CONT ONLY Coronal and Sagittal reconstruction series were provided. CONTRAST: Isovue 370 VOLUME: 100 mL One or more dose reduction techniques were used (e.g., Automated exposure control, adjustment of the mA and/or kV according to patient size, use of iterative reconstruction technique. RADIATION DOSE SUMMARY: CTDlvol: 44.99, 16.62, 13.02, 18.34 mGy DLP: 2180 mGycm COMPARISON: None. FINDINGS: LUNG BASES: Dependent lower lobe opacities bilaterally. Bilateral interlobular septal thickening LIVER: Hypodense 1.1 cm right liver lesion, likely a cyst.. GALLBLADDER: Prior cholecystectomy. BILE DUCTS: Prominent intrahepatic and extrahepatic bile ducts. No obstructing lesion seen. PANCREAS: Unremarkable. SPLEEN: Multiple hypodense lesions, the largest is 1.4 cm, possibly cysts or hemangiomas.. ADRENAL GLANDS: Unremarkable. KIDNEYS: The kidneys enhance symmetrically. Multiple hypodense lesions bilaterally, the largest is 3.7 cm, likely cysts. No hydronephrosis or hydroureter. Small splenule along the inferolateral left kidney. STOMACH AND BOWEL: No obstruction or perforation. No wall thickening. No CT evidence of colitis or acute diverticulitis. Moderate colonic stool. APPENDIX: Normal-appearing appendix. No CT evidence for appendicitis. RETRO/PERITONEUM: No free fluid. No free air. LYMPH NODES: No lymphadenopathy. PELVIC ORGANS: [place]ga decompressed urinary bladder. Unremarkable uterus and ovaries. VASCULATURE: No aortic aneurysm. Scattered calcified atherosclerosis ABDOMINAL WALL AND SOFT TISSUES: Small fat-containing proximal midline ventral wall hernia. Tiny fat containing umbilical and right femoral hernias. BONES: No fracture or suspicious osseous abnormality. Mild superior compression deformities of the T11 and L3 vertebral bodies. CT/Abdomen/Pelvis W IV Cont ONLY IMPRESSION: 1. Diffuse biliary ductal prominence. No obstructing lesions seen. Findings c an be seen in the postcholecystectomy state however would correlate with clinical signs of cholestasis. 2. Dependent atelectasis/infiltrates in both lower lobes. 3. Bilateral interlobular septal thickening, likely interstitial edema. Reading Location: [id number]
--- NOTE | 2025-02-24 15:10 | CT_ITS ---
PROCEDURE: CTA CHEST W/WO CONTRAST 02/24/2025 REASON FOR EXAM: PE RULE OUT TECHNIQUE: Procedure Code: CTCTACHWW Modality: CT Procedure: CTA CHEST W/WO CONTRAST Multiplanar Sagittal and Coronal images were obtained. 3D reconstructions CONTRAST: The amount of contrast is not indicated One or more dose reduction techniques were used (e.g., Automated exposure control, adjustment of the mA and/or kV according to patient size, use of iterative reconstruction technique). FINDINGS: Scanning performed from inferior to superior. The contrast bolus is adequate. No aortic aneurysm. No aortic dissection. Slight coronary artery calcification. Pulmonary artery hypertension with main pulmonary artery segment 3 0.7 cm and dilated main pulmonary artery segments bilaterally. There are no intravascular filling defects to diagnose pulmonary embolism. Lung windows were not supplied. Evaluation of the lungs von soft tissue windows utilizing windowing and leveling demonstrates thickening of the interlobular septa. No discrete pulmonary mass or mari consolidation. Mild atelectasis in the lingula. There is subpleural nodular thickening at the right lung base. CT/CTA Chest W/WO Contrast IMPRESSION: Pulmonary artery hypertension. Negative for pulmonary embolism Reading Location: [facility]
[2025-02-24 15:11] LABS: Allen Test Positive; Base Excess 9 mmol/L (-2 to +2); FI02 35.0; PEEP 8; PO2 87 mmHG (75-100); RR 12; SITE L Radial; SO2 91 % (94-98)
[2025-02-24] MEDS: Propofol 10MG/Ml 1,000 MG/100 ML Bottle 3.8 MG CONT INF (15:54)
--- NOTE | 2025-02-24 15:55 | RAD_ITS ---
PROCEDURE: CHEST 1 VIEW (PORTABLE) 02/24/2025 REASON FOR EXAM: POST INTUBATION. History of lung surgery. TECHNIQUE: Frontal view of the chest. COMPARISON: 01/27/2025 FINDINGS: LINES: Endotracheal tube tip terminating 1.6 cm above the kaylan. OG tube tip terminating in the proximal gastric body with poorly seen distal side port, likely in the distal esophagus. LUNGS AND PLEURA: Emphysematous lung changes. Diffuse interstitial thickening bilaterally. Postsurgical changes and pleural-parenchymal scarring in the right upper lung. No pleural effusion or pneumothorax. HEART AND MEDIASTINUM: The heart size and mediastinal contours are normal. AORTA: Mildly calcified aortic arch. BONES: No acute osseous abnormality. RAD/Chest 1 View (Portable) IMPRESSION: 1. ET tube terminating 1.6 cm above the kaylan. Withdrawal of roughly 2.0 cm is suggested for better positioning. 2. OG tube tip in the proximal gastric body, and distal side port likely in th e esophagus. Advancement of 7.0 cm is suggested for better positioning. 3. Bilateral interstitial thickening, may represent edema or infection. Reading Location: [id number]
[2025-02-24] MEDS: fentaNYL drip 100 ML 2.5 MCG CONT INF (16:03)
[2025-02-24] MEDS: Azithromycin 500 MG in 0.9% Normal Saline (250mL Bag) 250 ML 250 MG IV (16:28)
--- NOTE | 2025-02-24 17:00 | RAD_ITS ---
PROCEDURE: ABDOMEN SINGLE VIEW (PORTABLE) 02/24/2025 REASON FOR EXAM: NG PLACEMENT TECHNIQUE: Procedure Code: RADABD_P Modality: DX Procedure: ABDOMEN SINGLE VIEW (PORTABLE) COMPARISON: 01/26/2025 FINDINGS: LINES: Enteric tube tip terminating in the proximal gastric body with the distal side port in the distal esophagus. LUNG BASES: Diffuse interstitial thickening bilaterally. Postoperative changes in the right upper lung. BOWEL: No evidence of bowel obstruction. PERITONEUM/SOFT TISSUES: No appreciable free air. BONES: No acute osseous abnormality. RAD/Abdomen Single View (Portable) IMPRESSION: 1. Enteric tube tip in the proximal stomach with distal side port in the esoph shellie. Advancement of approximately 7.0 cm is suggested for better positioning. 2. Bilateral interstitial changes, likely edema or infection. Reading Location: [id number]
--- OUTSIDE RECORDS SUMMARY | 2025-02-24 17:08 | XMS RPT_ITS | CCD ---
Author Organization [facility] Care Team Providers Care Independent Marketing Consultant Name Role Phone Yoseph Fall MD Primary Care Provider Dr. Yoseph Fall Primary Care Provider Dr. Dallas Mena Emergency Provider Dr. José Cunningham Admit Provider Unavailabl e Dr. José Cunningham Other Provider Unavailabl e Dr. Jan Bolanos Attending Provider Dr. Jan Bolanos Other Provider Yoseph Fall MD Primary Care Provider Yoseph Fall MD Primary Care Provider Tannhof GLASSINE MACHINE TENDER.ENGINE MECHANIC, Iman Unavailable Jt GLASSINE MACHINE TENDER.ENGINE MECHANIC, Nelson Unavailable Tannhof GLASSINE MACHINE TENDER.ENGINE MECHANIC Iman Unavailable Unavail able Tannhof GLASSINE MACHINE TENDER.ENGINE MECHANIC, Iman Unavailable Dr. Yoseph Fall MD Primary [...] [phone] Saul JONES, Mikayla Unavailable Unavailable Rebecca GLASSINE MACHINE TENDER.ENGINE MECHANIC, Gregor Unavailable Unavailable Primary Care Provider Unavailizzy Zarate MD, Dr. Rod Emergency Provider Yudelka STOCKROOM KEEPER-C, Stacy Other Provider Yudelka STOCKROOM KEEPER-C, Stacy Attending Provide r Dr. Kyle Mendenhall DO Other Provider Andrea STOCKROOM KEEPER-C, Elma Other Provider Jake STOCKROOM KEEPER-C, Mercedez Other Provider Jackie Urbano Other Provider Dr. Kyle Mendenhall DO Attending Provider Eufemia OWEN, Dr. Arredondo [...] Dr. Rod Emergency Department Phys ician Yudelka STOCKROOM KEEPER-C, Stacy Nurse Practitione r Za CRUM, Dr. Wright Nurse Practitioner Andrea STOCKROOM KEEPER-C, Elma Nurse Practitioner Jake STOCKROOM KEEPER-C, Mercedez Nurse Practitioner Jackie Urbano Nurse Practitioner Yudelka STOCKROOM KEEPER-C, Stacy Attending Physici an Gilmar OWEN, Dr. Lynne Hooker Referring Provider Dr. Kyle Mendenhall DO Attending Physician Gustavo OWEN, Dr. Angulo Attending Physician Dr. Mercy Flores DO Emergency Department Physi bartolome Dr. Mercy Flores DO Emergency Department Physi bartolome Louie OWEN, Dr. Francois Admitting Physician Melissa OWEN, Dr. Seth Nurse Practitioner Karo OWEN, Dr. Ramirez Nurse Practitioner Kamari OWEN, Dr. Meade Nurse Practitioner Ramirez CRUM, Dr. Ashraf Nurse Practitioner Yadira OWEN, Dr. José Mcdonough Nurse Practitioner Festus OWEN, Dr. Lau Nurse Practitioner Robert OWEN, Dr. Cunningham Nurse Practitioner Tim OWEN, Dr. Barkley Nurse Practitioner Israel OWEN, Dr. Alfredo Nurse Practitioner Ephraim OWEN, Dr. Evans Nurse Practitioner [phone] Marvin OWEN, Dr. Lin Nurse Practitioner [phone] Oscar OWEN, Dr. Naik Nurse Practitioner Julia OWEN, Dr. Dan Nurse Practitioner Unavail beata Araujo MD, Dr. Broderick Nurse Practitioner Jess OWEN, Dr. Sims Nurse Practitioner William OWEN, Dr. Lee Nurse Practitioner Lisa OWEN, Dr. Bess Nurse Practitioner [phone] Akilah CRUM, Dr. Clay Nurse Practitioner Jelena OWEN, Dr. Velazco Nurse Practitioner Mak OWEN, Dr. Ojeda Nurse Practitioner Reza CRUM, Dr. Castro Nurse Practitioner [phone] Dashawn OWEN, Dr. Hauser Nurse Practitioner Kathleen rebeka Pathak MD, Dr. Avila Nurse Practitioner [phone] Erendira OWEN, Dr. Ro Nurse Practitioner Charli OWEN, Dr. Rivas Nurse Practitioner Los STOCKROOM KEEPER-C, Susan Nurse Practitioner Soni STOCKROOM KEEPER-C, Haylee Soliz Nurse Practitioner Dr. Andriy Guzmán [...] Primary Care Unavailable HAYLEE CARTER Attending Unavailable EUFEMIA, YOSEPH Liu Referring Unavailable ELDERSHAY, YOSEPH Liu Primary Care Unavailable Eufemia OWEN, Dr. Arredondo Primary Care Physician Dr. Riley Jeff DO Emergency Department Physic fernando Julius OWEN, Dr. Wild Attending Physician Gilmar OWEN, Dr. Lynne Hooker Attending Physician Charlotte OWEN, Dr. Dionne Wang Attending Physician Riccardo OWEN, Dr. Guardado Attending Physician Melissa OWEN, Dr. Seth Nurse Practitioner [phone] Karo OWEN, Dr. Ramirez Nurse Practitioner [phone] Kamari OWEN, Dr. Meade Nurse Practitioner Ramirez [...] Practitioner Akilah CRUM, Dr. Clay Nurse Practitioner Jelena OWEN, Dr. Velazco Nurse Practitioner Mak OWEN, Dr. Ojeda Nurse Practitioner Reza CRUM, Dr. Castro Nurse Practitioner [phone] Dashawn OWEN, Dr. Hauser Nurse Practitioner Kathleen rebeka Pathak MD, Dr. Avila Nurse Practitioner Erendira OWEN, Dr. Ro Nurse Practitioner Charli OWEN, Dr. Rivas Nurse Practitioner Los STOCKROOM KEEPER-C, Susan Nurse Practitioner Soni STOCKROOM KEEPER-C, Haylee Soliz Nurse Practitioner Shlomo OWEN, Dr. [...] Pathak Consulting Unavailable Jia Krishna Consulting UnavailRob Connros Consulting Unavailable Susan Madison NP Consulting Unavailable Haylee Shafer Consulting Unavailable Louie, Alessandro Consulting Unavailable Louie Alessandro Attending Unavailable Lynne Schafer Attending Unavailable Lynne Schafer Attending Unavailable Dionne Porter Consulting Unavailable Elderbrock, Yoseph Primary Care Unavailable Dionne Porter Admitting Unavailable Stacy Jha Consulting Unaelizabeth Palma, Alessandro Consulting Unavailable Za, Kyle Consulting [...] Consulting Unavailable White, Dionne L Admitting Unavailable [facility] Primary Care Unavailable Stacy Jha Consulting Unavai lable Louie, Alessandro Consulting Unavailable Friend, Kyle Consulting Unavailable Elma Mendez Consulting Unavailable Mercedez Joseph Consulting Unavailable Jackie Henry Consulting Unavailable Koram, Lynne Nhung Consulting Unavailable Stacy Jha Attending [facility] Primary Care Unavailable White, Dionne L Consulting Unavailable White, Dionne L Admitting Unavailable WhiteDionne L Attending Unavailable Dillon Lopez Attending Unavailable [facility] Primary Care Unavailable Louie, Alessandro Referring Unavailable Koram, Lynne Nhung Referring Unavailable Friend, Kyle Attending Unavailable Jan Bolanos Attending Unavailable Jessica Meraz Attending Unavailable [facility] Primary Care Unavailable Louie, Alessandro Admitting Unavailable Louie, Alessandro Consulting Unavailable Debby Gu Attending Unavailable [facility] Primary Care Unavailable White, Dionne L Consulting Unavailable White, Dionne L Admitting Unavailable Louie, Alessandro Attending Unavailable [facility] Primary Care Unavailable Jan Bolanos Consulting Unavailable Junito Madrid Consulting Unavailable Koram, Lynne Nhung Consulting Unavailable [place]ano[place] , Dr. Arredondo Primary Care Physician Charlotte [...] th every six hours as needed HYDROcodone-acetaminophen (Dora) 5-325 MG tablet Take 1 tablet by [...] Do not start before June 15, 2023. [id number] 200 actuat albuterol 0.09 mg/actuat metered dose [...] Stage 3 severe COPD by GOLD classification ([facility]) Take 1 tablet by mouth two times [...] Active Start: 12-24-2023 take 1 puff(s) by [facility] twice daily fluticasone-salmeterol (ADVAIR DISKUS) 500-50 [...] Discontinued Start: 05-18-2023 take 1 puff(s) by [facility] twice daily fluticasone-salmeterol (ADVAIR DISKUS) 500-50 mcg/dose dsdv Inhale 1 Puff as instructed two times a day. Rinse and gargle mouth with water after use. 3 Each 3 05/18/2023 Active Start: 03-17-2023 take 1 puff(s) by mo [facility] twice daily fluticasone-salmeterol (ADVAIR DISKUS) 500-50 mcg/dose [...] Start: 12-31-2021 take 1 puff(s) by mo [facility] twice daily fluticasone-salmeterol (ADVAIR DISKUS) 500-50 mcg/dose dsdv Inhale 1 Puff as instructed twice daily. Rinse and gargle mouth with water after use. 3 Each 3 12/31/2021 Active Start: 04-21-2021 take 1 puff(s) by mo [facility] twice daily fluticasone-salmeterol (ADVAIR DISKUS) 500-50 mcg/dose dsdv Inhale 1 Puff as instructed twice daily. Rinse and gargle mouth with water after use. 3 Each 3 04/21/2021 Active Start: 04-21-2021 take 1 puff(s) by mo [facility] twice daily fluticasone-salmeterol (ADVAIR DISKUS) 500-50 mcg/dose [...] een cheek and gum as needed. nystatin [id number] unt/ml oral suspension (20 sources) Polyene Antifungal [...] Stage 3 severe COPD by GOLD classification ([facility]) Take 1.5 pills every day or every [...] Stage 3 severe COPD by GOLD classification ([facility]) Take 1.5 tablets by mouth every other [...] CONTE (20 sources) Start: 07-17-2021 PULSE OXIMETER [facility] Indications: Chronic obstructive pulmonary disease, unspecified COPD type (HCC) , Moderate persistent asthma without complication (HCC) Use as directed to check oxygen saturation level 1 Each 07/17/2021 Active Start: 07-17-2021 PULSE OXIMETER [facility] Indications: Chronic obstructive pulmonary disease, unspecified COPD type (HCC) , Moderate persistent asthma without complication Use as directed to check oxygen saturation level 1 Each 07/17/2021 Active Start: 07-17-2021 PULSE OXIMETER [facility] Indications: Chronic obstructive pulmonary disease, [...] on above: Take 2 tablets by mo [facility] once daily. tiotropium 0.018 mg inhalation powder [...] 1 capsule as instructed once daily. Tiotropium [place] (Spiriva With Handihaler) 1 PUFF inhaler (8 sources) Start: 3 take 1 puff(s) by inhalation once daily Tiotropium [place] (Spiriva With Handihaler) 1 PUFF inhaler Active 1 NMA INHALATION DAILY April 18, 2013 1:00am wheezing Start: 04-18-2013 take 1 puff(s) by in halation once daily Tiotropium [place] (Spiriva With Handihaler) 1 PUFF inhaler Active 1 NMA INHALATION DAILY April 18, 2013 1:00am Start: 04-18-2013 take 1 puff(s) by in halation once daily Tiotropium [place] (Spiriva With Handihaler) 1 PUFF inhaler Active [...] 0.5 mg/ml oral solution (20 sources) Uncompetitive L-pdntve-T-aspartate Receptor Antagonist, Sigma-1 Agonist, alpha-1 Adrenergic Agonist Start: 2018 End: 2022 take 10 mL by mouth every eight hours as needed for chronic obstructive pulmonary disease and chronic obstructive pulmonary disease Yhcybzjbjiwjw-JV-c uaiFENesin (MUCINEX FAST-MAX CONGEST-COUGH) 2.5-5-100 mg/5 mL [...] empty sto mach Take 1 capsule by [facility] once daily. 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 [facility] patient will possibly be discharged in 10 days. [facility] patient is doing okay and will update as she progresses. Plan to follow up in one month if no contact. [facility] 36 Patients called with update. She was discharged to [facility] from [facility] 36 PC to patient. Unabl e to LMOM- voicemail box full. PC to patient significant other, LMOM to call office back. [facility] 36 Can we try and call SO? mm [facility] Absolute lymphocyte countOrd ered By: Jessica Luo on 02-13-2025 Lymphocytes Auto (Unsp spec) [#/Vol] 1.75 10*3/uL 0.83-4.51 [facility] Anion gap in Serum or Plasma Ordered By: Jessica Luo on 02-13-2025 Anion gap [Moles/Vol] 5 mmol/L 5-15 [facility] Automated lymphocyte count a s percentage of total leukocytesOrdered By: Jessica Luo on 02-13-2025 Lymphocytes/100 WBC Auto (Unsp spec) 25.0 % - [facility] BUN/creatinine ratioOrdered By: Jessica Luo on 02-13-2025 Urea nitrogen/Creatinine [Mass ratio] 32.2 mg/mg High 02-12 [facility] Basic Metabolic Profile (BMP )on 02-13-2025 BUN/CRE 32.2 RATIO High 02-12 [facility] Comment on above: Order Comment: 209 Performed By: #### L 100.0100, L500.2500, L501.5200 ####[facility] [address] [place], [address] Calcium [Mass/Vol] 8.4 mg/dL Normal 7.6-11.0 [facility] Comment on above: Order Comment: 209 Performed By: #### L 100.0100, L500.2500, L501.5200 ####[facility] [address] [place], [address] Chloride [Moles/Vol] 99 mmol/L Normal 98-[address] [facility] Comment on above: Order Comment: 209 Performed By: #### L 100.0100, L500.2500, L501.5200 ####[facility] [address] [place], [address] CO2 [Moles/Vol] 37.5 mmol/L High 21.0-32.0 [facility] Comment on above: Order Comment: 209 Performed By: #### L 100.0100, L500.2500, L501.5200 ####[facility] [address] [place], [address] Creatinine [Mass/Vol] 0.54 mg/dL Low 0.70-1.20 [facility] Comment on above: Order Comment: 209 Performed By: #### L 100.0100, L500.2500, L501.5200 ####[facility] [address] [place], [address] GAP 5 Normal 5-15 [facility] Comment on above: Order Comment: 209 Performed By: #### L 100.0100, L500.2500, L501.5200 ####[facility] [address] [place], [address] GFR/1.73 sq M.predicted among non-blacks MDRD (S/P/Bld) [Vol rate/Area] 99 mL/min/{1.73_m2} Normal >60 [facility] Comment on above: Order Comment: 209 Result Comment: mL/m in/1.73m2 CKD-EPI Creatinine Equation (2020) Performed By: #### L 100.0100, L500.2500, L501.5200 ####[facility] [address] [place], [address] Glucose [Mass/Vol] 80 mg/dL Normal 70-99 [facility] Comment on above: Order Comment: 209 Performed By: #### L 100.0100, L500.2500, L501.5200 ####[facility] [address] [place], [address] Potassium [Moles/Vol] 4.3 mmol/L Normal 3.3-5.1 [facility] Comment on above: Order Comment: 209 Performed By: #### L 100.0100, L500.2500, L501.5200 ####[facility] [address] [place], [address] Sodium [Moles/Vol] 141 mmol/L Normal 133-145 [facility] Comment on above: Order Comment: 209 Performed By: #### L 100.0100, L500.2500, L501.5200 ####[facility] [address] [place], [address] Urea nitrogen [Mass/Vol] 18 mg/dL Normal 4-19 [facility] Comment on above: Order Comment: 209 Performed By: #### L 100.0100, L500.2500, L501.5200 ####[facility] [address] [place], [address] Basophil percentageOrdered B y: Jessica Luo on 02-13-2025 Basophils/100 WBC (Bld) 0.1 % 0-1 [facility] CBC W/Diff, Automatedon 01-25 Absolute Lymph 1.75 X10 3/uL Normal 0.83-4.51 [facility] Comment on above: Order Comment: 209 Performed By: #### L 100.0100, L500.2500, L501.5200 ####[facility] [address] [place], [address] Absolute Neut 4.7 X10 3/uL Normal 2.0-7.7 [facility] Comment on above: Order Comment: 209 Performed By: #### L 100.0100, L500.2500, L501.5200 ####[facility] [address] [place], [address] Basophils/100 WBC (Bld) 0.1 % Normal 0-1 [facility] Comment on above: Order Comment: 209 Performed By: #### L 100.0100, L500.2500, L501.5200 ####[facility] [address] [place], [address] Eosinophils/100 WBC (Bld) 1.0 % Normal 0-5 [facility] Comment on above: Order Comment: 209 Performed By: #### L 100.0100, L500.2500, L501.5200 ####[facility] [address] [place], [address] Erythrocyte distribution width (RBC) [Ratio] 17.2 % High 11.6-14.6 [facility] Comment on above: Order Comment: 209 Performed By: #### L 100.0100, L500.2500, L501.5200 ####[facility] [address] [place], [address] Hematocrit (Bld) [Volume fraction] 28.3 % Low 37-47 [facility] Comment on above: Order Comment: 209 Performed By: #### L 100.0100, L500.2500, L501.5200 ####[facility] [address] [place], [address] Hemoglobin (Bld) [Mass/Vol] 8.5 g/dL Low 12.0-15.0 [facility] Comment on above: Order Comment: 209 Performed By: #### L 100.0100, L500.2500, L501.5200 ####[facility] [address] [place], [address] IG% 0.700 Normal 0.0-0.9 [facility] Comment on above: Order Comment: 209 Result Comment: IG% - Immature Granulocytes (promyelocytes, myelocytes andmetamyelocytes) > 1% indicates that a LEFT SHIFT is Present. Performed By: #### L 100.0100, L500.2500, L501.5200 ####[facility] [address] [place], [address] Lymphocytes/100 WBC (Bld) 25.0 % Normal 19-41 [facility] Comment on above: Order Comment: 209 Performed By: #### L 100.0100, L500.2500, L501.5200 ####[facility] [address] [place], [address] MCH (RBC) [Entitic mass] 24.6 pg Low 27.0-32.0 [facility] Comment on above: Order Comment: 209 Performed By: #### L 100.0100, L500.2500, L501.5200 ####[facility] [address] [place], [address] MCHC (RBC) [Mass/Vol] 30.0 g/dL Low 32-36 [facility] Comment on above: Order Comment: 209 Performed By: #### L 100.0100, L500.2500, L501.5200 ####[facility] [address] [place], [address] MCV (RBC) [Entitic vol] 81.8 fL Normal 81-99 [facility] Comment on above: Order Comment: 209 Performed By: #### L 100.0100, L500.2500, L501.5200 ####[facility] [address] [place], [address] Monocytes/100 WBC (Bld) 6.3 % Normal 0-10 [facility] Comment on above: Order Comment: 209 Performed By: #### L 100.0100, L500.2500, L501.5200 ####[facility] [address] [place], [address] Neutrophils/100 WBC (Bld) 66.9 % Normal 47-70 [facility] Comment on above: Order Comment: 209 Performed By: #### L 100.0100, L500.2500, L501.5200 ####[facility] [address] [place], [address] Nucleated RBC (Bld) [#/Vol] 0 10*3/uL Normal 0-5 [facility] Comment on above: Order Comment: 209 Performed By: #### L 100.0100, L500.2500, L501.5200 ####[facility] [address] [place], [address] Platelet mean volume (Bld) [Entitic vol] 11.3 fL Normal 6.2-12.0 [facility] Comment on above: Order Comment: 209 Performed By: #### L 100.0100, L500.2500, L501.5200 ####[facility] [address] [place], [address] Platelets (Bld) [#/Vol] 197 10*3/uL Normal 150-450 [facility] Comment on above: Order Comment: 209 Performed By: #### L 100.0100, L500.2500, L501.5200 ####[facility] [address] [place], [address] RBC (Bld) [#/Vol] 3.46 10*6/uL Low 4.2-5.4 [facility] Comment on above: Order Comment: 209 Performed By: #### L 100.0100, L500.2500, L501.5200 ####[facility] [address] [place], [address] RDW SD 51.0 fl High 35.1-43.9 [facility] Comment on above: Order Comment: 209 Performed By: #### L 100.0100, L500.2500, L501.5200 ####[facility] [address] [place], [address] WBC (Bld) [#/Vol] 7.0 10*3/uL Normal 4.4-11.0 [facility] Comment on above: Order Comment: 209 Performed By: #### L 100.0100, L500.2500, L501.5200 ####[facility] [address] [place], [address] Carbon dioxide, total [Moles /volume] in Central venous bloodOrdered By: Jessica Luo on 02-13-2025 CO2 [Moles/Vol] 37.5 mmol/L High 21.0-32.0 [facility] Chloride assayOrdered By: Ollie Luo on 02-13-2025 Chloride [Moles/Vol] 99 mmol/L 98-[address] [facility] Eosinophil percentageOrdered By: Jessica Luo on 02-13-2025 Eosinophils/100 WBC (Bld) 1.0 % 0-5 [facility] Erythrocyte distribution wid th ratioOrdered By: Jessica Luo on 02-13-2025 Erythrocyte distribution width (RBC) [Ratio] 17.2 % High 11.6-14.6 [facility] Erythrocyte distribution wid th standard deviationOrdered By: Jessica Luo on 02-13-2025 Erythrocyte distribution width (RBC) [Ratio] 51.0 fl High 35.1-43.9 [facility] Glomerular filtration rate ( GFR) estimation/1.73 sq m using serum, plasma, or whole bOrdered By: Jessica Luo on 10-21-2025 GFR/1.73 sq M.predicted among non-blacks MDRD (S/P/Bld) [Vol rate/Area] 99 mL/min/{1.73_m2} >60 [facility] Hematocrit Auto (Bld) [Volum e fraction]Ordered By: Jessica Luo on 02-13-2025 Hematocrit (Bld) [Volume fraction] 28.3 % Low 37-47 [facility] Hemoglobin measurementOrdere d By: Jessica Luo on 02-13-2025 Hemoglobin (Bld) [Mass/Vol] 8.5 g/dL Low 12.0-15.0 [facility] Immature granulocytes/100 WB C Auto (Bld)Ordered By: Jessica Luo on 02-13-2025 Immature granulocytes/100 WBC (Bld) 0.700 % 0.0-0.9 [facility] MCV (mean corpuscular volume ) determinationOrdered By: Jessica Luo on 02-13-2025 MCV (RBC) [Entitic vol] 81.8 fL 81-99 [facility] Magnesiumon 02-13-2025 Magnesium [Mass/Vol] 2.1 mg/dL Normal 1.5-2.[address] [facility] Comment on above: Order Comment: 209 Performed By: #### L 100.0100, L500.2500, L501.5200 ####[facility] [address] [place], [address] Magnesium measurement (mass/ volume)Ordered By: Jessica Luo on 02-13-2025 Magnesium (Unsp spec) [Mass/Vol] 2.1 mg/dL 1.5-2.2 [facility] Mean corpuscular hemoglobin (MCH) determinationOrdered By: Jessica Luo on 02-13-2025 MCH (RBC) [Entitic mass] 24.6 pg Low 27.0-32.0 [facility] Monocyte percentageOrdered B y: Jessica Luo on 02-13-2025 Monocytes/100 WBC (Bld) 6.3 % 0-10 [facility] Neutrophil percentageOrdered By: Jessica Luo on 02-13-2025 Neutrophils/100 WBC (Bld) 66.9 % 47-70 [facility] Platelet countOrdered By: Ollie Luo on 02-13-2025 Platelets (Bld) [#/Vol] 197 10*3/uL 150-450 [facility] Potassium measurement (mass/ volume)Ordered By: Jessica Luo on 02-13-2025 Potassium (Unsp spec) [Mass/Vol] 4.3 mmol/L 3.3-5.1 [facility] RBC Auto (Bld) [#/Vol]Ordere d By: Jessica Luo on 02-13-2025 RBC (Bld) [#/Vol] 3.46 10*6/uL Low 4.2-5.4 [facility] Serum creatinine measurement (mass/volume)Ordered By: Jessica Luo on 02-13-2025 Creatinine [Mass/Vol] 0.54 mg/dL Low 0.70-1.20 [facility] Serum glucose measurement (m ass/volume)Ordered By: Jessica Luo on 02-13-2025 Glucose [Mass/Vol] 80 mg/dL 70-99 [facility] Serum or plasma calcium kadi urement (mass/volume)Ordered By: Jessica Luo on 02-13-2025 Calcium [Mass/Vol] 8.4 mg/dL 7.6-11.0 [facility] Serum or plasma urea nitroge n measurement (mass/volume)Ordered By: Jessica Luo on 02-13-2025 Urea nitrogen [Mass/Vol] 18 mg/dL 4-19 [facility] Sodium levelOrdered By: Ang Luo on 02-13-2025 Sodium [Moles/Vol] 141 mmol/L 133-145 [facility] White blood cell (WBC) count Ordered By: Jsesica Luo on 02-13-2025 WBC (Bld) [#/Vol] 7.0 10*3/uL 4.4-11.0 [facility] Anion gap in Serum or Plasma Ordered By: Jessica Luo on 02-08-2025 Anion gap [Moles/Vol] 7 mmol/L 5-15 [facility] BUN/creatinine ratioOrdered By: Jessica Luo on 02-08-2025 Urea nitrogen/Creatinine [Mass ratio] 21.7 mg/mg High 02-12 [facility] Basic Metabolic Profile (BMP )on 02-08-2025 BUN/CRE 21.7 RATIO High 02-12 [facility] Comment on above: Performed By: #### L 500.2500 ####[facility] [address] [place], [address] Calcium [Mass/Vol] 8.6 mg/dL Normal 7.6-11.0 [facility] Comment on above: Performed By: #### L 500.2500 ####[facility] [address] [place], [address] Chloride [Moles/Vol] 94 mmol/L Low 98-[address] [facility] Comment on above: Performed By: #### L 500.2500 ####[facility] [address] [place], [address] CO2 [Moles/Vol] 41.8 mmol/L High 21.0-32.0 [facility] Comment on above: Performed By: #### L 500.2500 ####[facility] [address] [place], [address] Creatinine [Mass/Vol] 0.57 mg/dL Low 0.70-1.20 [facility] Comment on above: Performed By: #### L 500.2500 ####[facility] [address] [place], [address] GAP 7 Normal 5-15 [facility] Comment on above: Performed By: #### L 500.2500 ####[facility] [address] [place], [address] GFR/1.73 sq M.predicted among non-blacks MDRD (S/P/Bld) [Vol rate/Area] 98 mL/min/{1.73_m2} Normal >60 [facility] Comment on above: Result Comment: mL/m in/1.73m2 CKD-EPI Creatinine Equation (2020) Performed By: #### L 500.2500 ####[facility] [address] [place], [address] Glucose [Mass/Vol] 81 mg/dL Normal 70-99 [facility] Comment on above: Performed By: #### L 500.2500 ####[facility] [address] [place], [address] Potassium [Moles/Vol] 4.2 mmol/L Normal 3.3-5.1 [facility] Comment on above: Performed By: #### L 500.2500 ####[facility] [address] [place], [address] Sodium [Moles/Vol] 142 mmol/L Normal 133-145 [facility] Comment on above: Performed By: #### L 500.2500 ####[facility] [address] [place], [address] Urea nitrogen [Mass/Vol] 12 mg/dL Normal 4-19 [facility] Comment on above: Performed By: #### L 500.2500 ####[facility] [address] [place], [address] Carbon dioxide, total [Moles /volume] in Central venous bloodOrdered By: Jessica Luo on 02-08-2025 CO2 [Moles/Vol] 41.8 mmol/L High 21.0-32.0 [facility] Cardiology Visit Reporton Cardiology Visit Report Normal [facility] Chloride assayOrdered By: Ollie Luo on 02-08-2025 Chloride [Moles/Vol] 94 mmol/L Low 98-[address] [facility] Glomerular filtration rate ( GFR) estimation/1.73 sq m using serum, plasma, or whole bOrdered By: Jessica Luo on 02-08-2025 GFR/1.73 sq M.predicted among non-blacks MDRD (S/P/Bld) [Vol rate/Area] 98 mL/min/{1.73_m2} >60 [facility] Potassium measurement (mass/ volume)Ordered By: Jessica Luo on 02-08-2025 Potassium (Unsp spec) [Mass/Vol] 4.2 mmol/L 3.3-5.1 [facility] Serum creatinine measurement (mass/volume)Ordered By: Jessica Luo on 02-08-2025 Creatinine [Mass/Vol] 0.57 mg/dL Low 0.70-1.20 [facility] Serum glucose measurement (m ass/volume)Ordered By: Jessica Luo on 02-08-2025 Glucose [Mass/Vol] 81 mg/dL 70-99 [facility] Serum or plasma calcium kadi urement (mass/volume)Ordered By: Jessica Luo on 02-08-2025 Calcium [Mass/Vol] 8.6 mg/dL 7.6-11.0 [facility] Serum or plasma urea nitroge n measurement (mass/volume)Ordered By: Jessica Luo on 02-08-2025 Urea nitrogen [Mass/Vol] 12 mg/dL 4-19 [facility] Sodium levelOrdered By: Ang Luo on 02-08-2025 Sodium [Moles/Vol] 142 mmol/L 133-145 [facility] Absolute lymphocyte countOrd ered By: Jessica Luo on 02-06-2025 Lymphocytes Auto (Unsp spec) [#/Vol] 1.49 10*3/uL 0.83-4.51 [facility] Anion gap in Serum or Plasma Ordered By: Jessica Luo on 02-06-2025 Anion gap [Moles/Vol] 7 mmol/L 5-15 [facility] Automated lymphocyte count a s percentage of total leukocytesOrdered By: Jessica Luo on 02-06-2025 Lymphocytes/100 WBC Auto (Unsp spec) 19.0 % 19-41 [facility] BUN/creatinine ratioOrdered By: Jessica Luo on 02-06-2025 Urea nitrogen/Creatinine [Mass ratio] 21.7 mg/mg High 10-20 [facility] Basic Metabolic Profile (BMP )on 02-06-2025 BUN/CRE 21.7 RATIO High 10-20 [facility] Comment on above: Order Comment: 209.1 Performed By: #### L 100.0100, L500.2500, L501.5200 ####[facility] [address] [place], [address] Calcium [Mass/Vol] 8.5 mg/dL Normal 7.6-11.0 [facility] Comment on above: Order Comment: 209.1 Performed By: #### L 100.0100, L500.2500, L501.5200 ####[facility] [address] [place], [address] Chloride [Moles/Vol] 93 mmol/L Low 98-[address] [facility] Comment on above: Order Comment: 209.1 Performed By: #### L 100.0100, L500.2500, L501.5200 ####[facility] [address] [place], [address] CO2 [Moles/Vol] 43.4 mmol/L High 21.0-32.0 [facility] Comment on above: Order Comment: 209.1 Performed By: #### L 100.0100, L500.2500, L501.5200 ####[facility] [address] [place], [address] Creatinine [Mass/Vol] 0.55 mg/dL Low 0.70-1.20 [facility] Comment on above: Order Comment: 209.1 Performed By: #### L 100.0100, L500.2500, L501.5200 ####[facility] [address] [place], [address] GAP 7 Normal 5-15 [facility] Comment on above: Order Comment: 209.1 Performed By: #### L 100.0100, L500.2500, L501.5200 ####[facility] [address] [place], [address] GFR/1.73 sq M.predicted among non-blacks MDRD (S/P/Bld) [Vol rate/Area] 99 mL/min/{1.73_m2} Normal >60 [facility] Comment on above: Order Comment: 209.1 Result Comment: mL/m in/1.73m2 CKD-EPI Creatinine Equation (2020) Performed By: #### L 100.0100, L500.2500, L501.5200 ####[facility] [address] [place], [address] Glucose [Mass/Vol] 77 mg/dL Normal 70-99 [facility] Comment on above: Order Comment: . Performed By: #### L 100.0100, L500.2500, L501.5200 ####[facility] [address] [place], [address] Potassium [Moles/Vol] 3.2 mmol/L Low 3.3-5.1 [facility] Comment on above: Order Comment: . Performed By: #### L 100.0100, L500.2500, L501.5200 ####[facility] [address] [place], [address] Sodium [Moles/Vol] 143 mmol/L Normal 133-145 [facility] Comment on above: Order Comment: .1 Performed By: #### L 100.0100, L500.2500, L501.5200 ####[facility] [address] [place], [address] Urea nitrogen [Mass/Vol] 12 mg/dL Normal 4-19 [facility] Comment on above: Order Comment: 209.1 Performed By: #### L 100.0100, L500.2500, L501.5200 ####[facility] [address] [place], [address] Basophil percentageOrdered B y: Jessica Luo on 02-06-2025 Basophils/100 WBC (Bld) 0.1 % 0-1 [facility] CBC W/Diff, Automatedon 01-24 Absolute Lymph 1.49 X10 3/uL Normal 0.83-4.51 [facility] Comment on above: Order Comment: 209. Performed By: #### L 100.0100, L500.2500, L501.5200 ####[facility] [address] [place], [address] Absolute Neut 5.7 X10 3/uL Normal 2.0-7.7 [facility] Comment on above: Order Comment: . Performed By: #### L 100.0100, L500.2500, L501.5200 ####[facility] [address] [place], [address] Basophils/100 WBC (Bld) 0.1 % Normal 0-1 [facility] Comment on above: Order Comment: . Performed By: #### L 100.0100, L500.2500, L501.5200 ####[facility] [address] [place], [address] Eosinophils/100 WBC (Bld) 0.3 % Normal 0-5 [facility] Comment on above: Order Comment: .1 Performed By: #### L 100.0100, L500.2500, L501.5200 ####[facility] [address] [place], [address] Erythrocyte distribution width (RBC) [Ratio] 16.2 % High 11.6-14.6 [facility] Comment on above: Order Comment: 209.1 Performed By: #### L 100.0100, L500.2500, L501.5200 ####[facility] [address] [place], [address] Hematocrit (Bld) [Volume fraction] 31.7 % Low 37-47 [facility] Comment on above: Order Comment: 209.1 Performed By: #### L 100.0100, L500.2500, L501.5200 ####[facility] [address] [place], [address] Hemoglobin (Bld) [Mass/Vol] 9.5 g/dL Low 12.0-15.0 [facility] Comment on above: Order Comment: .1 Performed By: #### L 100.0100, L500.2500, L501.5200 ####[facility] [address] [place], [address] IG% 0.600 Normal 0.0-0.9 [facility] Comment on above: Order Comment: .1 Result Comment: IG% - Immature Granulocytes (promyelocytes, myelocytes andmetamyelocytes) > 1% indicates that a LEFT SHIFT is Present. Performed By: #### L 100.0100, L500.2500, L501.5200 ####[facility] [address] [place], [address] Lymphocytes/100 WBC (Bld) 19.0 % Normal 19-41 [facility] Comment on above: Order Comment: .1 Performed By: #### L 100.0100, L500.2500, L501.5200 ####[facility] [address] [place], [address] MCH (RBC) [Entitic mass] 24.5 pg Low 27.0-32.0 [facility] Comment on above: Order Comment: .1 Performed By: #### L 100.0100, L500.2500, L501.5200 ####[facility] [address] [place], [address] MCHC (RBC) [Mass/Vol] 30.0 g/dL Low 32-36 [facility] Comment on above: Order Comment: .1 Performed By: #### L 100.0100, L500.2500, L501.5200 ####[facility] [address] [place], [address] MCV (RBC) [Entitic vol] 81.9 fL Normal 81-99 [facility] Comment on above: Order Comment: .1 Performed By: #### L 100.0100, L500.2500, L501.5200 ####[facility] [address] [place], [address] Monocytes/100 WBC (Bld) 7.3 % Normal 0-10 [facility] Comment on above: Order Comment: .1 Performed By: #### L 100.0100, L500.2500, L501.5200 ####[facility] [address] [place], [address] Neutrophils/100 WBC (Bld) 72.7 % High 47-70 [facility] Comment on above: Order Comment: .1 Performed By: #### L 100.0100, L500.2500, L501.5200 ####[facility] [address] [place], [address] Nucleated RBC (Bld) [#/Vol] 0 10*3/uL Normal 0-5 [facility] Comment on above: Order Comment: .1 Performed By: #### L 100.0100, L500.2500, L501.5200 ####[facility] [address] [place], [address] Platelet mean volume (Bld) [Entitic vol] 12.3 fL High 6.2-12.0 [facility] Comment on above: Order Comment: .1 Performed By: #### L 100.0100, L500.2500, L501.5200 ####[facility] [address] [place], [address] Platelets (Bld) [#/Vol] 176 10*3/uL Normal 150-450 [facility] Comment on above: Order Comment: .1 Performed By: #### L 100.0100, L500.2500, L501.5200 ####[facility] [address] [place], [address] RBC (Bld) [#/Vol] 3.87 10*6/uL Low 4.2-5.4 [facility] Comment on above: Order Comment: . Performed By: #### L 100.0100, L500.2500, L501.5200 ####[facility] [address] [place], [address] RDW SD 47.8 fl High 35.1-43.9 [facility] Comment on above: Order Comment: . Performed By: #### L 100.0100, L500.2500, L501.5200 ####[facility] [address] [place], [address] WBC (Bld) [#/Vol] 7.9 10*3/uL Normal 4.4-11.0 [facility] Comment on above: Order Comment: . Performed By: #### L 100.0100, L500.2500, L501.5200 ####[facility] [address] [place], [address] Carbon dioxide, total [Moles /volume] in Central venous bloodOrdered By: Jessica Luo on 02-06-2025 CO2 [Moles/Vol] 43.4 mmol/L High 21.0-32.0 [facility] Chloride assayOrdered By: Ollie Luo on 02-06-2025 Chloride [Moles/Vol] 93 mmol/L Low 98-[address] [facility] Eosinophil percentageOrdered By: Jessica Luo on 02-06-2025 Eosinophils/100 WBC (Bld) 0.3 % 0-5 [facility] Erythrocyte distribution wid th ratioOrdered By: Jessica Luo on 02-06-2025 Erythrocyte distribution width (RBC) [Ratio] 16.2 % High 11.6-14.6 [facility] Erythrocyte distribution wid th standard deviationOrdered By: Jessica Luo on 02-06-2025 Erythrocyte distribution width (RBC) [Ratio] 47.8 fl High 35.1-43.9 [facility] Glomerular filtration rate ( GFR) estimation/1.73 sq m using serum, plasma, or whole bOrdered By: Jessica Luo on 02-06-2025 GFR/1.73 sq M.predicted among non-blacks MDRD (S/P/Bld) [Vol rate/Area] 99 mL/min/{1.73_m2} >60 [facility] Hematocrit Auto (Bld) [Volum e fraction]Ordered By: Jessicaanna Luo on 02-06-2025 Hematocrit (Bld) [Volume fraction] 31.7 % Low 37-47 [facility] Hemoglobin measurementOrdere d By: Jessica Luo on 02-06-2025 Hemoglobin (Bld) [Mass/Vol] 9.5 g/dL Low 12.0-15.0 [facility] Immature granulocytes/100 WB C Auto (Bld)Ordered By: Jessica Luo on 02-06-2025 Immature granulocytes/100 WBC (Bld) 0.600 % 0.0-0.9 [facility] MCV (mean corpuscular volume ) determinationOrdered By: Jessica Luo on 02-06-2025 MCV (RBC) [Entitic vol] 81.9 fL 81-99 [facility] Magnesiumon 02-06-2025 Magnesium [Mass/Vol] 2.2 mg/dL Normal 1.5-2.[address] [facility] Comment on above: Order Comment: 209.1 Performed By: #### L 100.0100, L500.2500, L501.5200 ####[facility] [address] [place], [address] Magnesium measurement (mass/ volume)Ordered By: Jessica Luo on 02-06-2025 Magnesium (Unsp spec) [Mass/Vol] 2.2 mg/dL 1.5-2.2 [facility] Mean corpuscular hemoglobin (MCH) determinationOrdered By: Jessica Luo on 02-06-2025 MCH (RBC) [Entitic mass] 24.5 pg Low 27.0-32.0 [facility] Monocyte percentageOrdered B y: Jessica Luo on 02-06-2025 Monocytes/100 WBC (Bld) 7.3 % 0-10 [facility] Neutrophil percentageOrdered By: Jessica Luo on 02-06-2025 Neutrophils/100 WBC (Bld) 72.7 % High 47-70 [facility] Platelet countOrdered By: Ollie Luo on 02-06-2025 Platelets (Bld) [#/Vol] 176 10*3/uL 150-450 [facility] Potassium measurement (mass/ volume)Ordered By: Jessica Luo on 02-06-2025 Potassium (Unsp spec) [Mass/Vol] 3.2 mmol/L Low 3.3-5.1 [facility] RBC Auto (Bld) [#/Vol]Ordere d By: Jessica Luo on 02-06-2025 RBC (Bld) [#/Vol] 3.87 10*6/uL Low 4.2-5.4 [facility] Serum creatinine measurement (mass/volume)Ordered By: Jessica Luo on 02-06-2025 Creatinine [Mass/Vol] 0.55 mg/dL Low 0.70-1.20 [facility] Serum glucose measurement (m ass/volume)Ordered By: Jessica Luo on 02-06-2025 Glucose [Mass/Vol] 77 mg/dL 70-99 [facility] Serum or plasma calcium kadi urement (mass/volume)Ordered By: Jessica Luo on 02-06-2025 Calcium [Mass/Vol] 8.5 mg/dL 7.6-11.0 [facility] Serum or plasma urea nitroge n measurement (mass/volume)Ordered By: Jessica Luo on 02-06-2025 Urea nitrogen [Mass/Vol] 12 mg/dL 4-19 [facility] Sodium levelOrdered By: Ang Luo on 02-06-2025 Sodium [Moles/Vol] 143 mmol/L 133-145 [facility] White blood cell (WBC) count Ordered By: Jessica Luo on 02-06-2025 WBC (Bld) [#/Vol] 7.9 10*3/uL 4.4-11.0 [facility] 36on 02-05-2025 36 Chart reviewed, patient admitted to [facility] 01/25-01/31 with the following event summary: 69-year-old female with a history of severe aortic valve stenosis being worked up for TAVR in [place], COPD with chronic hypoxic respiratory failure on 3 L home O2, anxiety, GERD, restless leg syndrome, A-fib presented to [facility] ED 01/25/25 for worsening shortness of breath [...] follow-up, no answer and voicemail full Normal [facility] Basic Metabolic Profile (BMP )on 02-03-2025 BUN Normal - [facility] Comment on above: Result Comment: Canc elled via OM: Order cancelled - Patient discharged Performed By: #### L 100.0100, L500.2500 ####[facility] [address] [place], [address] BUN/CRE Normal - [facility] Comment on above: Result Comment: Canc elled via OM: Order cancelled - Patient discharged Performed By: #### L 100.0100, L500.2500 ####[facility] [address] [place], [address] Calcium Normal 7.6-11.0 [facility] Comment on above: Result Comment: Canc elled via OM: Order cancelled - Patient discharged Performed By: #### L 100.0100, L500.2500 ####[facility] [address] [place], [address] CL Normal 98-108 [facility] Comment on above: Result Comment: Canc elled via OM: Order cancelled - Patient discharged Performed By: #### L 100.0100, L500.2500 ####[facility] [address] [place], [address] CO2 Normal 21.0-32.0 [facility] Comment on above: Result Comment: Canc elled via OM: Order cancelled - Patient discharged Performed By: #### L 100.0100, L500.2500 ####[facility] [address] [place], [address] CREAT,SERUM Normal 0.70-1.20 [facility] Comment on above: Result Comment: Canc elled via OM: Order cancelled - Patient discharged Performed By: #### L 100.0100, L500.2500 ####[facility] [address] [place], [address] eGFR Normal >60 [facility] Comment on above: Result Comment: Canc elled via OM: Order cancelled - Patient discharged Performed By: #### L 100.0100, L500.2500 ####[facility] [address] [place], [address] GAP Normal 5-15 [facility] Comment on above: Result Comment: Canc elled via OM: Order cancelled - Patient discharged Performed By: #### L 100.0100, L500.2500 ####[facility] [address] [place], [address] GLU Normal 70-99 [facility] Comment on above: Result Comment: Canc elled via OM: Order cancelled - Patient discharged Performed By: #### L 100.0100, L500.2500 ####[facility] [address] [place], [address] Potassium Normal 3.3-5.1 [facility] Comment on above: Result Comment: Canc elled via OM: Order cancelled - Patient discharged Performed By: #### L 100.0100, L500.2500 ####[facility] [address] [place], [address] Basic Metabolic Profile (BMP) Normal 133-145 [facility] Comment on above: Result Comment: Canc elled via OM: Order cancelled - Patient discharged Performed By: #### L 100.0100, L500.2500 ####[facility] [address] [place], [address] CBC W/Diff, Automatedon 10-1 Absolute Neut Normal 2.0-7.7 [facility] Comment on above: Result Comment: Canc elled via OM: Order cancelled - Patient discharged Performed By: #### L 100.0100, L500.2500 ####[facility] [address] [place], [address] HCT Normal 37-47 [facility] Comment on above: Result Comment: Canc elled via OM: Order cancelled - Patient discharged Performed By: #### L 100.0100, L500.2500 ####[facility] [address] [place], [address] HGB Normal 12.0-15.0 [facility] Comment on above: Result Comment: Canc elled via OM: Order cancelled - Patient discharged Performed By: #### L 100.0100, L500.2500 ####[facility] [address] [place], [address] MCH Normal 27.0-32.0 [facility] Comment on above: Result Comment: Canc elled via OM: Order cancelled - Patient discharged Performed By: #### L 100.0100, L500.2500 ####[facility] [address] [place], [address] MCHC Normal 32-36 [facility] Comment on above: Result Comment: Canc elled via OM: Order cancelled - Patient discharged Performed By: #### L 100.0100, L500.2500 ####[facility] [address] [place], [address] MCV Normal 81-99 [facility] Comment on above: Result Comment: Canc elled via OM: Order cancelled - Patient discharged Performed By: #### L 100.0100, L500.2500 ####[facility] [address] [place], [address] NEUT% Normal 47-70 [facility] Comment on above: Result Comment: Canc elled via OM: Order cancelled - Patient discharged Performed By: #### L 100.0100, L500.2500 ####[facility] [address] [place], [address] PLT Normal 150-450 [facility] Comment on above: Result Comment: Canc elled via OM: Order cancelled - Patient discharged Performed By: #### L 100.0100, L500.2500 ####[facility] [address] [place], [address] RBC Normal 4.2-5.4 [facility] Comment on above: Result Comment: Canc elled via OM: Order cancelled - Patient discharged Performed By: #### L 100.0100, L500.2500 ####[facility] [address] [place], [address] RDW CV Normal 11.6-14.6 [facility] Comment on above: Result Comment: Canc elled via OM: Order cancelled - Patient discharged Performed By: #### L 100.0100, L500.2500 ####[facility] [address] [place], [address] RDW SD Normal 35.1-43.9 [facility] Comment on above: Result Comment: Canc elled via OM: Order cancelled - Patient discharged Performed By: #### L 100.0100, L500.2500 ####[facility] [address] [place], [address] WBC Normal 4.4-11.0 [facility] Comment on above: Result Comment: Canc elled via OM: Order cancelled - Patient discharged Performed By: #### L 100.0100, L500.2500 ####[facility] [address] [place], [address] Basic Metabolic Profile (BMP )on 02-02-2025 BUN Normal 4-19 [facility] Comment on above: Result Comment: Canc elled via OM: Order cancelled - Patient discharged Performed By: #### L 100.0100, L500.2500 ####[facility] [address] [place], [address] BUN/CRE Normal 10-20 [facility] Comment on above: Result Comment: Canc elled via OM: Order cancelled - Patient discharged Performed By: #### L 100.0100, L500.2500 ####[facility] [address] [place], [address] Calcium Normal 7.6-11.0 [facility] Comment on above: Result Comment: Canc elled via OM: Order cancelled - Patient discharged Performed By: #### L 100.0100, L500.2500 ####[facility] [address] [place], [address] CL Normal 98-108 [facility] Comment on above: Result Comment: Canc elled via OM: Order cancelled - Patient discharged Performed By: #### L 100.0100, L500.2500 ####[facility] [address] [place], [address] CO2 Normal 21.0-32.0 [facility] Comment on above: Result Comment: Canc elled via OM: Order cancelled - Patient discharged Performed By: #### L 100.0100, L500.2500 ####[facility] [address] [place], [address] CREAT,SERUM Normal 0.70-1.20 [facility] Comment on above: Result Comment: Canc elled via OM: Order cancelled - Patient discharged Performed By: #### L 100.0100, L500.2500 ####[facility] [address] [place], [address] eGFR Normal >60 [facility] Comment on above: Result Comment: Canc elled via OM: Order cancelled - Patient discharged Performed By: #### L 100.0100, L500.2500 ####[facility] [address] [place], [address] GAP Normal 5-15 [facility] Comment on above: Result Comment: Canc elled via OM: Order cancelled - Patient discharged Performed By: #### L 100.0100, L500.2500 ####[facility] [address] [place], [address] GLU Normal 70-99 [facility] Comment on above: Result Comment: Canc elled via OM: Order cancelled - Patient discharged Performed By: #### L 100.0100, L500.2500 ####[facility] [address] [place], [address] Potassium Normal 3.3-5.1 [facility] Comment on above: Result Comment: Canc elled via OM: Order cancelled - Patient discharged Performed By: #### L 100.0100, L500.2500 ####[facility] [address] [place], [address] Basic Metabolic Profile (BMP) Normal 133-145 [facility] Comment on above: Result Comment: Canc elled via OM: Order cancelled - Patient discharged Performed By: #### L 100.0100, L500.2500 ####[facility] [address] [place], [address] CBC W/Diff, Automatedon 10-1 0-2024 Absolute Neut Normal 2.0-7.7 [facility] Comment on above: Result Comment: Canc elled via OM: Order cancelled - Patient discharged Performed By: #### L 100.0100, L500.2500 ####[facility] [address] [place], [address] HCT Normal 37-47 [facility] Comment on above: Result Comment: Canc elled via OM: Order cancelled - Patient discharged Performed By: #### L 100.0100, L500.2500 ####[facility] [address] [place], [address] HGB Normal 12.0-15.0 [facility] Comment on above: Result Comment: Canc elled via OM: Order cancelled - Patient discharged Performed By: #### L 100.0100, L500.2500 ####[facility] [address] [place], [address] MCH Normal 27.0-32.0 [facility] Comment on above: Result Comment: Canc elled via OM: Order cancelled - Patient discharged Performed By: #### L 100.0100, L500.2500 ####[facility] [address] [place], [address] MCHC Normal 32-36 [facility] Comment on above: Result Comment: Canc elled via OM: Order cancelled - Patient discharged Performed By: #### L 100.0100, L500.2500 ####[facility] [address] [place], [address] MCV Normal 81-99 [facility] Comment on above: Result Comment: Canc elled via OM: Order cancelled - Patient discharged Performed By: #### L 100.0100, L500.2500 ####[facility] [address] [place], [address] NEUT% Normal 47-70 [facility] Comment on above: Result Comment: Canc elled via OM: Order cancelled - Patient discharged Performed By: #### L 100.0100, L500.2500 ####[facility] [address] [place], [address] PLT Normal 150-450 [facility] Comment on above: Result Comment: Canc elled via OM: Order cancelled - Patient discharged Performed By: #### L 100.0100, L500.2500 ####[facility] [address] [place], [address] RBC Normal 4.2-5.4 [facility] Comment on above: Result Comment: Canc elled via OM: Order cancelled - Patient discharged Performed By: #### L 100.0100, L500.2500 ####[facility] [address] [place], [address] RDW CV Normal 11.6-14.6 [facility] Comment on above: Result Comment: Canc elled via OM: Order cancelled - Patient discharged Performed By: #### L 100.0100, L500.2500 ####[facility] [address] [place], [address] RDW SD Normal 35.1-43.9 [facility] Comment on above: Result Comment: Canc elled via OM: Order cancelled - Patient discharged Performed By: #### L 100.0100, L500.2500 ####[facility] [address] [place], [address] WBC Normal 4.4-11.0 [facility] Comment on above: Result Comment: Canc elled via OM: Order cancelled - Patient discharged Performed By: #### L 100.0100, L500.2500 ####[facility] [address] [place], [address] Absolute lymphocyte countOrd ered By: Jessica Luo on 02-01-2025 Lymphocytes Auto (Unsp spec) [#/Vol] 1.63 10*3/uL 0.83-4.51 [facility] Anion gap in Serum or Plasma Ordered By: Jessica Luo on 02-01-2025 Anion gap [Moles/Vol] 8 mmol/L 5-15 [facility] Automated lymphocyte count a s percentage of total leukocytesOrdered By: Jessica Luo on 02-01-2025 Lymphocytes/100 WBC Auto (Unsp spec) 18.8 % Low 19-41 [facility] BUN/creatinine ratioOrdered By: Jessicaanna Luo on 02-01-2025 Urea nitrogen/Creatinine [Mass ratio] 25.3 mg/mg High 10- [facility] Basic Metabolic Profile (BMP )on 02-01-2025 BUN/CRE 25.3 RATIO High 10- [facility] Comment on above: Order Comment: .1 Performed By: #### L 100.0100, L501.5200, L503.0106, L506.1001, L500.2500, L501.9985, L501.9520 ####[facility] [address] [place], [address] Calcium [Mass/Vol] 8.6 mg/dL Normal 7.6-11.0 [facility] Comment on above: Order Comment: .1 Performed By: #### L 100.0100, L501.5200, L503.0106, L506.1001, L500.2500, L501.9985, L501.9520 ####[facility] [address] [place], [address] Chloride [Moles/Vol] 91 mmol/L Low 98-[address] [facility] Comment on above: Order Comment: . Performed By: #### L 100.0100, L501.5200, L503.0106, L506.1001, L500.2500, L501.9985, L501.9520 ####[facility] [address] [place], [address] CO2 [Moles/Vol] 41.6 mmol/L High 21.0-32.0 [facility] Comment on above: Order Comment: . Performed By: #### L 100.0100, L501.5200, L503.0106, L506.1001, L500.2500, L501.9985, L501.9520 ####[facility] [address] [place], [place], [phone] Creatinine [Mass/Vol] 0.46 mg/dL Low 0.70-1.20 [facility] Comment on above: Order Comment: . Performed By: #### L 100.0100, L501.5200, L503.0106, L506.1001, L500.2500, L501.9985, L501.9520 ####[facility] [address] [place], [place], [phone] [phone] 8 Normal 5-15 [facility] Comment on above: Order Comment: . Performed By: #### L 100.0100, L501.5200, L503.0106, L506.1001, L500.2500, L501.9985, L501.9520 ####[facility] [address] [place], [place], [phone] GFR/1.73 sq M.predicted among non-blacks MDRD (S/P/Bld) [Vol rate/Area] 103 mL/min/{1.73_m2} Normal >60 [facility] Comment on above: Order Comment: Result Comment: mL/m in/1.73m2 CKD-EPI Creatinine Equation (2020) Performed By: #### L 100.0100, L501.5200, L503.0106, L506.1001, L500.2500, L501.9985, L501.9520 ####[facility] [address] [place], [address] Glucose [Mass/Vol] 79 mg/dL Normal 70-99 [facility] Comment on above: Order Comment: Performed By: #### L 100.0100, L501.5200, L503.0106, L506.1001, L500.2500, L501.9985, L501.9520 ####[facility] [address] [place], [address] Potassium [Moles/Vol] 3.5 mmol/L Normal 3.3-5.1 [facility] Comment on above: Order Comment: Performed By: #### L 100.0100, L501.5200, L503.0106, L506.1001, L500.2500, L501.9985, L501.9520 ####[facility] [address] [place], [address] Sodium [Moles/Vol] 140 mmol/L Normal 133-145 [facility] Comment on above: Order Comment: . Performed By: #### L 100.0100, L501.5200, L503.0106, L506.1001, L500.2500, L501.9985, L501.9520 ####[facility] [address] [place], [address] Urea nitrogen [Mass/Vol] 12 mg/dL Normal 4-19 [facility] Comment on above: Order Comment: . Performed By: #### L 100.0100, L501.5200, L503.0106, L506.1001, L500.2500, L501.9985, L501.9520 ####[facility] [address] [place], [address] BUN Normal 4-19 [facility] Comment on above: Result Comment: Canc elled via OM: Order cancelled - Patient discharged Performed By: #### L 500.2500, L100.0100 ####[facility] [address] [place], [address] BUN/CRE Normal 10-20 [facility] Comment on above: Result Comment: Canc elled via OM: Order cancelled - Patient discharged Performed By: #### L 500.2500, L100.0100 ####[facility] [address] [place], [address] Calcium Normal 7.6-11.0 [facility] Comment on above: Result Comment: Canc elled via OM: Order cancelled - Patient discharged Performed By: #### L 500.2500, L100.0100 ####[facility] [address] [place], [address] CL Normal 98-108 [facility] Comment on above: Result Comment: Canc elled via OM: Order cancelled - Patient discharged Performed By: #### L 500.2500, L100.0100 ####[facility] [address] [place], [address] CO2 Normal 21.0-32.0 [facility] Comment on above: Result Comment: Canc elled via OM: Order cancelled - Patient discharged Performed By: #### L 500.2500, L100.0100 ####[facility] [address] [place], [address] CREAT,SERUM Normal 0.70-1.20 [facility] Comment on above: Result Comment: Canc elled via OM: Order cancelled - Patient discharged Performed By: #### L 500.2500, L100.0100 ####[facility] [address] [place], [address] eGFR Normal >60 [facility] Comment on above: Result Comment: Canc elled via OM: Order cancelled - Patient discharged Performed By: #### L 500.2500, L100.0100 ####[facility] [address] [place], [address] GAP Normal 5-15 [facility] Comment on above: Result Comment: Canc elled via OM: Order cancelled - Patient discharged Performed By: #### L 500.2500, L100.0100 ####[facility] [address] [place], [address] GLU Normal 70-99 [facility] Comment on above: Result Comment: Canc elled via OM: Order cancelled - Patient discharged Performed By: #### L 500.2500, L100.0100 ####[facility] [address] [place], [address] Potassium Normal 3.3-5.1 [facility] Comment on above: Result Comment: Canc elled via OM: Order cancelled - Patient discharged Performed By: #### L 500.2500, L100.0100 ####[facility] [address] [place], [address] Basic Metabolic Profile (BMP) Normal 133-145 [facility] Comment on above: Result Comment: Canc elled via OM: Order cancelled - Patient discharged Performed By: #### L 500.2500, L100.0100 ####[facility] [address] [place], [address] Basophil percentageOrdered B y: Jessica Luo on 02-01-2025 Basophils/100 WBC (Bld) 0.1 % 0-1 [facility] CBC W/Diff, Automatedon 10-0 Absolute Lymph 1.63 X10 3/uL Normal 0.83-4.51 [facility] Comment on above: Order Comment: 209. Performed By: #### L 100.0100, L501.5200, L503.0106, L506.1001, L500.2500, L501.9985, L501.9520 ####[facility] [address] [place], [address] Absolute Neut 6.1 X10 3/uL Normal 2.0-7.7 [facility] Comment on above: Order Comment: . Performed By: #### L 100.0100, L501.5200, L503.0106, L506.1001, L500.2500, L501.9985, L501.9520 ####[facility] [address] [place], [address] Basophils/100 WBC (Bld) 0.1 % Normal 0-1 [facility] Comment on above: Order Comment: Performed By: #### L 100.0100, L501.5200, L503.0106, L506.1001, L500.2500, L501.9985, L501.9520 ####[facility] [address] [place], [address] Eosinophils/100 WBC (Bld) 0.3 % Normal 0-5 [facility] Comment on above: Order Comment: Performed By: #### L 100.0100, L501.5200, L503.0106, L506.1001, L500.2500, L501.9985, L501.9520 ####[facility] [address] [place], [address] Erythrocyte distribution width (RBC) [Ratio] 15.3 % High 11.6-14.6 [facility] Comment on above: Order Comment: . Performed By: #### L 100.0100, L501.5200, L503.0106, L506.1001, L500.2500, L501.9985, L501.9520 ####[facility] [address] [place], [address] Hematocrit (Bld) [Volume fraction] 32.5 % Low 37-47 [facility] Comment on above: Order Comment: . Performed By: #### L 100.0100, L501.5200, L503.0106, L506.1001, L500.2500, L501.9985, L501.9520 ####[facility] [address] [place], [address] Hemoglobin (Bld) [Mass/Vol] 9.6 g/dL Low 12.0-15.0 [facility] Comment on above: Order Comment: . Performed By: #### L 100.0100, L501.5200, L503.0106, L506.1001, L500.2500, L501.9985, L501.9520 ####[facility] [address] [place], [address] IG% 0.800 Normal 0.0-0.9 [facility] Comment on above: Order Comment: . Result Comment: IG% - Immature Granulocytes (promyelocytes, myelocytes andmetamyelocytes) > 1% indicates that a LEFT SHIFT is Present. Performed By: #### L 100.0100, L501.5200, L503.0106, L506.1001, L500.2500, L501.9985, L501.9520 ####[facility] [address] [place], [address] Lymphocytes/100 WBC (Bld) 18.8 % Low 19-41 [facility] Comment on above: Order Comment: . Performed By: #### L 100.0100, L501.5200, L503.0106, L506.1001, L500.2500, L501.9985, L501.9520 ####[facility] [address] [place], [address] MCH (RBC) [Entitic mass] 24.2 pg Low 27.0-32.0 [facility] Comment on above: Order Comment: . Performed By: #### L 100.0100, L501.5200, L503.0106, L506.1001, L500.2500, L501.9985, L501.9520 ####[facility] [address] [place], [address] MCHC (RBC) [Mass/Vol] 29.5 g/dL Low 32-36 [facility] Comment on above: Order Comment: . Performed By: #### L 100.0100, L501.5200, L503.0106, L506.1001, L500.2500, L501.9985, L501.9520 ####[facility] [address] [place], [address] MCV (RBC) [Entitic vol] 81.9 fL Normal 81-99 [facility] Comment on above: Order Comment: . Performed By: #### L 100.0100, L501.5200, L503.0106, L506.1001, L500.2500, L501.9985, L501.9520 ####[facility] [address] [place], [address] Monocytes/100 WBC (Bld) 9.7 % Normal 0-10 [facility] Comment on above: Order Comment: . Performed By: #### L 100.0100, L501.5200, L503.0106, L506.1001, L500.2500, L501.9985, L501.9520 ####[facility] [address] [place], [address] Neutrophils/100 WBC (Bld) 70.3 % High 47-70 [facility] Comment on above: Order Comment: . Performed By: #### L 100.0100, L501.5200, L503.0106, L506.1001, L500.2500, L501.9985, L501.9520 ####[facility] [address] [place], [address] Nucleated RBC (Bld) [#/Vol] 0 10*3/uL Normal 0-5 [facility] Comment on above: Order Comment: . Performed By: #### L 100.0100, L501.5200, L503.0106, L506.1001, L500.2500, L501.9985, L501.9520 ####[facility] [address] [place], [address] Platelet mean volume (Bld) [Entitic vol] 12.0 fL Normal 6.2-12.0 [facility] Comment on above: Order Comment: . Performed By: #### L 100.0100, L501.5200, L503.0106, L506.1001, L500.2500, L501.9985, L501.9520 ####[facility] [address] [place], [address] Platelets (Bld) [#/Vol] 224 10*3/uL Normal 150-450 [facility] Comment on above: Order Comment: . Performed By: #### L 100.0100, L501.5200, L503.0106, L506.1001, L500.2500, L501.9985, L501.9520 ####[facility] [address] [place], [address] RBC (Bld) [#/Vol] 3.97 10*6/uL Low 4.2-5.4 [facility] Comment on above: Order Comment: . Performed By: #### L 100.0100, L501.5200, L503.0106, L506.1001, L500.2500, L501.9985, L501.9520 ####[facility] [address] [place], [address] RDW SD 45.7 fl High 35.1-43.9 [facility] Comment on above: Order Comment: 209.1 Performed By: #### L 100.0100, L501.5200, L503.0106, L506.1001, L500.2500, L501.9985, L501.9520 ####[facility] [address] [place], [address] WBC (Bld) [#/Vol] 8.7 10*3/uL Normal 4.4-11.0 [facility] Comment on above: Order Comment: .1 Performed By: #### L 100.0100, L501.5200, L503.0106, L506.1001, L500.2500, L501.9985, L501.9520 ####[facility] [address] [place], [address] Absolute Neut Normal 2.0-7.7 [facility] Comment on above: Result Comment: Canc elled via OM: Order cancelled - Patient discharged Performed By: #### L 500.2500, L100.0100 ####[facility] [address] [place], [address] HCT Normal 37-47 [facility] Comment on above: Result Comment: Canc elled via OM: Order cancelled - Patient discharged Performed By: #### L 500.2500, L100.0100 ####[facility] [address] [place], [address] HGB Normal 12.0-15.0 [facility] Comment on above: Result Comment: Canc elled via OM: Order cancelled - Patient discharged Performed By: #### L 500.2500, L100.0100 ####[facility] [address] [place], [address] MCH Normal 27.0-32.0 [facility] Comment on above: Result Comment: Canc elled via OM: Order cancelled - Patient discharged Performed By: #### L 500.2500, L100.0100 ####[facility] [address] [place], [address] MCHC Normal 32-36 [facility] Comment on above: Result Comment: Canc elled via OM: Order cancelled - Patient discharged Performed By: #### L 500.2500, L100.0100 ####[facility] [address] [place], [address] MCV Normal 81-99 [facility] Comment on above: Result Comment: Canc elled via OM: Order cancelled - Patient discharged Performed By: #### L 500.2500, L100.0100 ####[facility] [address] [place], [address] NEUT% Normal 47-70 [facility] Comment on above: Result Comment: Canc elled via OM: Order cancelled - Patient discharged Performed By: #### L 500.2500, L100.0100 ####[facility] [address] [place], [address] PLT Normal 150-450 [facility] Comment on above: Result Comment: Canc elled via OM: Order cancelled - Patient discharged Performed By: #### L 500.2500, L100.0100 ####[facility] [address] [place], [address] RBC Normal 4.2-5.4 [facility] Comment on above: Result Comment: Canc elled via OM: Order cancelled - Patient discharged Performed By: #### L 500.2500, L100.0100 ####[facility] [address] [place], [address] RDW CV Normal 11.6-14.6 [facility] Comment on above: Result Comment: Canc elled via OM: Order cancelled - Patient discharged Performed By: #### L 500.2500, L100.0100 ####[facility] [address] [place], [address] RDW SD Normal 35.1-43.9 [facility] Comment on above: Result Comment: Canc elled via OM: Order cancelled - Patient discharged Performed By: #### L 500.2500, L100.0100 ####[facility] [address] [place], [address] WBC Normal 4.4-11.0 [facility] Comment on above: Result Comment: Canc elled via OM: Order cancelled - Patient discharged Performed By: #### L 500.2500, L100.0100 ####[facility] [address] [place], [address] Carbon dioxide, total [Moles /volume] in Central venous bloodOrdered By: Jessica Luo on 02-01-2025 CO2 [Moles/Vol] 41.6 mmol/L High 21.0-32.0 [facility] Chloride assayOrdered By: Ollie Luo on 02-01-2025 Chloride [Moles/Vol] 91 mmol/L Low 98-[address] [facility] Eosinophil percentageOrdered By: Jessica Luo on 02-01-2025 Eosinophils/100 WBC (Bld) 0.3 % 0-5 [facility] Erythrocyte distribution wid th ratioOrdered By: Jessica Luo on 02-01-2025 Erythrocyte distribution width (RBC) [Ratio] 15.3 % High 11.6-14.6 [facility] Erythrocyte distribution wid th standard deviationOrdered By: Jessica Luo on 02-01-2025 Erythrocyte distribution width (RBC) [Ratio] 45.7 fl High 35.1-43.9 [facility] Glomerular filtration rate ( GFR) estimation/1.73 sq m using serum, plasma, or whole bOrdered By: Jessica Luo on 02-01-2025 GFR/1.73 sq M.predicted among non-blacks MDRD (S/P/Bld) [Vol rate/Area] 103 mL/min/{1.73_m2} >60 [facility] Hematocrit Auto (Bld) [Volum e fraction]Ordered By: Jessica Luo on 02-01-2025 Hematocrit (Bld) [Volume fraction] 32.5 % Low 37-47 [facility] Hemoglobin A1con 02-01-2025 HbA1c (Bld) [Mass fraction] 5.4 % Normal <=5.6 [facility] Comment on above: Order Comment: 209.1 Result Comment: Norm al < 5.7 % Prediabetic 5.7 - 6.4 % Diabetic >or= 6.5 % Please note range changes. Performed By: #### L 100.0100, L501.5200, L503.0106, L506.1001, L500.2500, L501.9985, L501.9520 ####[facility] [address], [address] Hemoglobin A1c percentageOrd ered By: Jessica Luo on 02-01-2025 HbA1c (Bld) [Mass fraction] 5.4 % <5.7 [facility] Hemoglobin measurementOrdere d By: Jessica Luo on 02-01-2025 Hemoglobin (Bld) [Mass/Vol] 9.6 g/dL Low 12.0-15.0 [facility] Immature granulocytes/100 WB C Auto (Bld)Ordered By: Jessica Luo on 02-01-2025 Immature granulocytes/100 WBC (Bld) 0.800 % 0.0-0.9 [facility] MCV (mean corpuscular volume ) determinationOrdered By: Jessica Luo on 02-01-2025 MCV (RBC) [Entitic vol] 81.9 fL 81-99 [facility] Magnesiumon 02-01-2025 Magnesium [Mass/Vol] 2.1 mg/dL Normal 1.5-2.[address] [facility] Comment on above: Order Comment: 209.1 Performed By: #### L 100.0100, L501.5200, L503.0106, L506.1001, L500.2500, L501.9985, L501.9520 ####[facility] [address] [place], [address] Magnesium measurement (mass/ volume)Ordered By: Jessica Luo on 02-01-2025 Magnesium (Unsp spec) [Mass/Vol] 2.1 mg/dL 1.5-2.2 [facility] Mean corpuscular hemoglobin (MCH) determinationOrdered By: Jessica Luo on 02-01-2025 MCH (RBC) [Entitic mass] 24.2 pg Low 27.0-32.0 [facility] Monocyte percentageOrdered B y: Jessica Luo on 02-01-2025 Monocytes/100 WBC (Bld) 9.7 % 0-10 [facility] Neutrophil percentageOrdered By: Jessica Luo on 02-01-2025 Neutrophils/100 WBC (Bld) 70.3 % High 47-70 [facility] Platelet countOrdered By: Ollie Luo on 02-01-2025 Platelets (Bld) [#/Vol] 224 10*3/uL 150-450 [facility] Potassium measurement (mass/ volume)Ordered By: Jessica Luo on 02-01-2025 Potassium (Unsp spec) [Mass/Vol] 3.5 mmol/L 3.3-5.1 [facility] RBC Auto (Bld) [#/Vol]Ordere d By: Jessica Luo on 02-01-2025 RBC (Bld) [#/Vol] 3.97 10*6/uL Low 4.2-5.4 [facility] Serum creatinine measurement (mass/volume)Ordered By: Jessica Luo on 02-01-2025 Creatinine [Mass/Vol] 0.46 mg/dL Low 0.70-1.20 [facility] Serum glucose measurement (m ass/volume)Ordered By: Jessica Luo on 02-01-2025 Glucose [Mass/Vol] 79 mg/dL 70-99 [facility] Serum or plasma calcium kadi urement (mass/volume)Ordered By: Jessica Luo on 02-01-2025 Calcium [Mass/Vol] 8.6 mg/dL 7.6-11.0 [facility] Serum or plasma urea nitroge n measurement (mass/volume)Ordered By: Jessica Luo on 02-01-2025 Urea nitrogen [Mass/Vol] 12 mg/dL 4-19 [facility] Sodium levelOrdered By: Ang Luo on 02-01-2025 Sodium [Moles/Vol] 140 mmol/L 133-145 [facility] TSH DL <= 0.005 mIU/L QnOrde red By: Jessica Luo on 02-01-2025 TSH Qn 1.330 uIU/mL 0.300-4.200 [facility] Thyroid Stim Hormone (TSH)on 02-01-2025 TSH 1.330 uIU/mL Normal 0.300-4.200 [facility] Comment on above: Order Comment: 209.1 Performed By: #### L 100.0100, L501.5200, L503.0106, L506.1001, L500.2500, L501.9985, L501.9520 ####[facility] [address] [place], [place], [id number] Vitamin B12on 02-01-2025 Cobalamin (Vitamin B12) [Mass/Vol] 286 pg/mL Normal 180-914 [facility] Comment on above: Order Comment: 209.1 Performed By: #### L 100.0100, L501.5200, L503.0106, L506.1001, L500.2500, L501.9985, L501.9520 ####[facility] [address] [facility] [place], [place], [address] Vitamin B12 ser/plasOrdered By: Jessica Luo on 02-01-2025 Cobalamin (Vitamin B12) [Mass/Vol] 286 pg/mL 180-914 [facility] Vitamin D,25 Hydroxyon 02-01 Vitamin D 25-OH 32.3 ng/mL Normal 30-100 [facility] Comment on above: Order Comment: 209.1 Result Comment: Marixa min D StatusDeficiency: <20 ng/mL (50nmol/L)Insufficiency: 20-30 ng/mL (50-75 nmol/L)Sufficiency: 30-100 ng/mL (75-250 nmol/L)Toxicity: >100 ng/mL (>250 nmol/L) Performed By: #### L 100.0100, L501.5200, L503.0106, L506.1001, L500.2500, L501.9985, L501.9520 ####[facility] [address] [place], [address] White blood cell (WBC) count Ordered By: Jessica Luo on 02-01-2025 WBC (Bld) [#/Vol] 8.7 10*3/uL 4.4-11.0 [facility] 36on 01-31-2025 36 Tried to contact to follow-up on dental plan, unable to leave message due to voicemail full Normal [facility] Absolute lymphocyte countOrd ered By: Debby Gu on 01-31-2025 Lymphocytes Auto (Unsp spec) [#/Vol] 1.44 10*3/uL 0.83-4.51 [facility] Anion gap in Serum or Plasma Ordered By: Debby Gu on 01-31-2025 Anion gap [Moles/Vol] 6 mmol/L 5-15 [facility] Automated lymphocyte count a s percentage of total leukocytesOrdered By: Debby Gu on 01-31-2025 Lymphocytes/100 WBC Auto (Unsp spec) 16.1 % Low 19-41 [facility] BUN/creatinine ratioOrdered By: Debby Gu on 01-31-2025 Urea nitrogen/Creatinine [Mass ratio] 29.6 mg/mg High 10- [facility] Basic Metabolic Profile (BMP )on 01-31-2025 BUN/CRE 29.6 RATIO High 02-12 [facility] Comment on above: Performed By: #### L 500.2500, L100.0100 ####[facility] [address] [place], [address] Calcium [Mass/Vol] 8.8 mg/dL Normal 7.6-11.0 [facility] Comment on above: Performed By: #### L 500.2500, L100.0100 ####[facility] [address] [place], [address] Chloride [Moles/Vol] 92 mmol/L Low 98-[address] [facility] Comment on above: Performed By: #### L 500.2500, L100.0100 ####[facility] [address] [place], [address] CO2 [Moles/Vol] 44.1 mmol/L High 21.0-32.0 [facility] Comment on above: Performed By: #### L 500.2500, L100.0100 ####[facility] [address] [place], [address] Creatinine [Mass/Vol] 0.48 mg/dL Low 0.70-1.20 [facility] Comment on above: Performed By: #### L 500.2500, L100.0100 ####[facility] [address] [place], [address] ECRCL 62.17 ml/min Normal 50-250 [facility] Comment on above: Performed By: #### L 500.2500, L100.0100 ####[facility] [address] [place], [address] GAP 6 Normal 5-15 [facility] Comment on above: Performed By: #### L 500.2500, L100.0100 ####[facility] [address] [place], [address] GFR/1.73 sq M.predicted among non-blacks MDRD (S/P/Bld) [Vol rate/Area] 103 mL/min/{1.73_m2} Normal >60 [facility] Comment on above: Result Comment: mL/m in/1.73m2 CKD-EPI Creatinine Equation (2020) Performed By: #### L 500.2500, L100.0100 ####[facility] [address] [place], [address] Glucose [Mass/Vol] 98 mg/dL Normal 70-99 [facility] Comment on above: Performed By: #### L 500.2500, L100.0100 ####[facility] [address], [address] Potassium [Moles/Vol] 3.3 mmol/L Normal 3.3-5.1 [facility] Comment on above: Performed By: #### L 500.2500, L100.0100 ####[facility] [address] [place], [address] Sodium [Moles/Vol] 141 mmol/L Normal 133-145 [facility] Comment on above: Performed By: #### L 500.2500, L100.0100 ####[facility] [address] [place], [address] Urea nitrogen [Mass/Vol] 14 mg/dL Normal 4-19 [facility] Comment on above: Performed By: #### L 500.2500, L100.0100 ####[facility] [address] [place], [address] Basophil percentageOrdered B y: Debbyrayne Gu on 01-31-2025 Basophils/100 WBC (Bld) 0.1 % 0-1 [facility] CBC W/Diff, Automatedon 10-0 Absolute Lymph 1.44 X10 3/uL Normal 0.83-4.51 [facility] Comment on above: Performed By: #### L 500.2500, L100.0100 ####[facility] [address] [place], [address] Absolute Neut 6.4 X10 3/uL Normal 2.0-7.7 [facility] Comment on above: Performed By: #### L 500.2500, L100.0100 ####[facility] [address] [place], [address] Basophils/100 WBC (Bld) 0.1 % Normal 0-1 [facility] Comment on above: Performed By: #### L 500.2500, L100.0100 ####[facility] [address] [place], [address] Eosinophils/100 WBC (Bld) 0.2 % Normal 0-5 [facility] Comment on above: Performed By: #### L 500.2500, L100.0100 ####[facility] [address] [place], [address] Erythrocyte distribution width (RBC) [Ratio] 15.1 % High 11.6-14.6 [facility] Comment on above: Performed By: #### L 500.2500, L100.0100 ####[facility] [address] [place], [address] Hematocrit (Bld) [Volume fraction] 31.4 % Low 37-47 [facility] Comment on above: Performed By: #### L 500.2500, L100.0100 ####[facility] [address] [place], [address] Hemoglobin (Bld) [Mass/Vol] 9.5 g/dL Low 12.0-15.0 [facility] Comment on above: Performed By: #### L 500.2500, L100.0100 ####[facility] [address] [place], [address] IG% 0.700 Normal 0.0-0.9 [facility] Comment on above: Result Comment: IG% - Immature Granulocytes (promyelocytes, myelocytes andmetamyelocytes) > 1% indicates that a LEFT SHIFT is Present. Performed By: #### L 500.2500, L100.0100 ####[facility] [address] [place], [address] Lymphocytes/100 WBC (Bld) 16.1 % Low 19-41 [facility] Comment on above: Performed By: #### L 500.2500, L100.0100 ####[facility] [address] [place], [address] MCH (RBC) [Entitic mass] 24.5 pg Low 27.0-32.0 [facility] Comment on above: Performed By: #### L 500.2500, L100.0100 ####[facility] [address] [place], [address] MCHC (RBC) [Mass/Vol] 30.3 g/dL Low 32-36 [facility] Comment on above: Performed By: #### L 500.2500, L100.0100 ####[facility] [address] [place], [address] MCV (RBC) [Entitic vol] 81.1 fL Normal 81-99 [facility] Comment on above: Performed By: #### L 500.2500, L100.0100 ####[facility] [address] [place], [address] Monocytes/100 WBC (Bld) 11.7 % High 0-10 [facility] Comment on above: Performed By: #### L 500.2500, L100.0100 ####[facility] [address] [place], [address] Neutrophils/100 WBC (Bld) 71.2 % High 47-70 [facility] Comment on above: Performed By: #### L 500.2500, L100.0100 ####[facility] [address] [place], [address] Nucleated RBC (Bld) [#/Vol] 0 10*3/uL Normal 0-5 [facility] Comment on above: Performed By: #### L 500.2500, L100.0100 ####[facility] [address] [place], [address] Platelet mean volume (Bld) [Entitic vol] 11.3 fL Normal 6.2-12.0 [facility] Comment on above: Performed By: #### L 500.2500, L100.0100 ####[facility] [address] [place], [address] Platelets (Bld) [#/Vol] 204 10*3/uL Normal 150-450 [facility] Comment on above: Performed By: #### L 500.2500, L100.0100 ####[facility] [address] [place], [address] RBC (Bld) [#/Vol] 3.87 10*6/uL Low 4.2-5.4 [facility] Comment on above: Performed By: #### L 500.2500, L100.0100 ####[facility] [address] [place], [address] RDW SD 44.4 fl High 35.1-43.9 [facility] Comment on above: Performed By: #### L 500.2500, L100.0100 ####[facility] [address] [place], [address] WBC (Bld) [#/Vol] 9.0 10*3/uL Normal 4.4-11.0 [facility] Comment on above: Performed By: #### L 500.2500, L100.0100 ####[facility] [address] [place], [address] Carbon dioxide, total [Moles /volume] in Central venous bloodOrdered By: Debby Gu on 01-31-2025 CO2 [Moles/Vol] 44.1 mmol/L High 21.0-32.0 [facility] Chloride assayOrdered By: Sadiq Gu on 01-31-2025 Chloride [Moles/Vol] 92 mmol/L Low 98-[address] [facility] Eosinophil percentageOrdered By: Debby Gu on 10-08-2025 Eosinophils/100 WBC (Bld) 0.2 % 0-5 [facility] Erythrocyte distribution wid th ratioOrdered By: Debby Gu on 01-31-2025 Erythrocyte distribution width (RBC) [Ratio] 15.1 % High 11.6-14.6 [facility] Erythrocyte distribution wid th standard deviationOrdered By: Debby Gu on 01-31-2025 Erythrocyte distribution width (RBC) [Ratio] 44.4 fl High 35.1-43.9 [facility] Glomerular filtration rate ( GFR) estimation/1.73 sq m using serum, plasma, or whole bOrdered By: Debby Gu on 01-31-2025 GFR/1.73 sq M.predicted among non-blacks MDRD (S/P/Bld) [Vol rate/Area] 103 mL/min/{1.73_m2} >60 [facility] Hematocrit Auto (Bld) [Volum e fraction]Ordered By: Debby Gu on 01-31-2025 Hematocrit (Bld) [Volume fraction] 31.4 % Low 37-47 [facility] Hemoglobin measurementOrdere d By: Debby Gu on 01-31-2025 Hemoglobin (Bld) [Mass/Vol] 9.5 g/dL Low 12.0-15.0 [facility] Immature granulocytes/100 WB C Auto (Bld)Ordered By: Debby Gu on 01-31-2025 Immature granulocytes/100 WBC (Bld) 0.700 % 0.0-0.9 [facility] MCV (mean corpuscular volume ) determinationOrdered By: Debby Gu on 01-31-2025 MCV (RBC) [Entitic vol] 81.1 fL 81-99 [facility] Mean corpuscular hemoglobin (MCH) determinationOrdered By: Debby Gu on 01-31-2025 MCH (RBC) [Entitic mass] 24.5 pg Low 27.0-32.0 [facility] Monocyte percentageOrdered B y: Debby Gu on 01-31-2025 Monocytes/100 WBC (Bld) 11.7 % High 0-10 [facility] Neutrophil percentageOrdered By: Debby Gu on 01-31-2025 Neutrophils/100 WBC (Bld) 71.2 % High 47-70 [facility] Platelet countOrdered By: Sadiq Gu on 01-31-2025 Platelets (Bld) [#/Vol] 204 10*3/uL 150-450 [facility] Potassium measurement (mass/ volume)Ordered By: Debby Gu on 01-31-2025 Potassium (Unsp spec) [Mass/Vol] 3.3 mmol/L 3.3-5.1 [facility] RBC Auto (Bld) [#/Vol]Ordere d By: Debby Gu on 01-31-2025 RBC (Bld) [#/Vol] 3.87 10*6/uL Low 4.2-5.4 [facility] Serum creatinine measurement (mass/volume)Ordered By: Debby Gu on 01-31-2025 Creatinine [Mass/Vol] 0.48 mg/dL Low 0.70-1.20 [facility] Serum glucose measurement (m ass/volume)Ordered By: Debby Gu on 01-31-2025 Glucose [Mass/Vol] 98 mg/dL 70-99 [facility] Serum or plasma calcium kadi urement (mass/volume)Ordered By: Debby Gu on 01-31-2025 Calcium [Mass/Vol] 8.8 mg/dL 7.6-11.0 [facility] Serum or plasma urea nitroge n measurement (mass/volume)Ordered By: Debby Gu on 01-31-2025 Urea nitrogen [Mass/Vol] 14 mg/dL 4-19 [facility] Sodium levelOrdered By: Art Gu on 01-31-2025 Sodium [Moles/Vol] 141 mmol/L 133-145 [facility] White blood cell (WBC) count Ordered By: Debby Gu on 01-31-2025 WBC (Bld) [#/Vol] 9.0 10*3/uL 4.4-11.0 [facility] Basic Metabolic Profile (BMP )on 01-30-2025 BUN/CRE 30.6 RATIO High 10-20 [facility] Comment on above: Performed By: #### L 500.2500, L100.0100 ####[facility] [address], [address] Calcium [Mass/Vol] 8.6 mg/dL Normal 7.6-11.0 [facility] Comment on above: Performed By: #### L 500.2500, L100.0100 ####[facility] [address] [place], [address] Chloride [Moles/Vol] 89 mmol/L Low 98-[address] [facility] Comment on above: Performed By: #### L 500.2500, L100.0100 ####[facility] [address], [address] CO2 [Moles/Vol] 43.5 mmol/L High 21.0-32.0 [facility] Comment on above: Performed By: #### L 500.2500, L100.0100 ####[facility] [address] [place], [address] Creatinine [Mass/Vol] 0.59 mg/dL Low 0.70-1.20 [facility] Comment on above: Performed By: #### L 500.2500, L100.0100 ####[facility] [address] [place], [address] ECRCL 63.85 ml/min Normal 50-250 [facility] Comment on above: Performed By: #### L 500.2500, L100.0100 ####[facility] [address] [place], [address] GAP 9 Normal 5-15 [facility] Comment on above: Performed By: #### L 500.2500, L100.0100 ####[facility] [address] [place], [address] GFR/1.73 sq M.predicted among non-blacks MDRD (S/P/Bld) [Vol rate/Area] 97 mL/min/{1.73_m2} Normal >60 [facility] Comment on above: Result Comment: mL/m in/1.73m2 CKD-EPI Creatinine Equation (2020) Performed By: #### L 500.2500, L100.0100 ####[facility] [address], [address] Glucose [Mass/Vol] 179 mg/dL High 70-99 [facility] Comment on above: Performed By: #### L 500.2500, L100.0100 ####[facility] [address] [place], [address] Potassium [Moles/Vol] 3.2 mmol/L Low 3.3-5.1 [facility] Comment on above: Performed By: #### L 500.2500, L100.0100 ####[facility] [address] [place], [address] Sodium [Moles/Vol] 141 mmol/L Normal 133-145 [facility] Comment on above: Performed By: #### L 500.2500, L100.0100 ####[facility] [address] [place], [address] Urea nitrogen [Mass/Vol] 18 mg/dL Normal 4-19 [facility] Comment on above: Performed By: #### L 500.2500, L100.0100 ####[facility] [address] [place], [address] CBC W/Diff, Automatedon 10-0 7-2025 Absolute Lymph 0.45 X10 3/uL Low 0.83-4.51 [facility] Comment on above: Performed By: #### L 500.2500, L100.0100 ####[facility] [address] [place], [address] Absolute Neut 5.3 X10 3/uL Normal 2.0-7.7 [facility] Comment on above: Performed By: #### L 500.2500, L100.0100 ####[facility] [address] [place], [address] Basophils/100 WBC (Bld) 0.2 % Normal 0-1 [facility] Comment on above: Performed By: #### L 500.2500, L100.0100 ####[facility] [address] [place], [address] Eosinophils/100 WBC (Bld) 0.0 % Normal 0-5 [facility] Comment on above: Performed By: #### L 500.2500, L100.0100 ####[facility] [address] [place], [address] Erythrocyte distribution width (RBC) [Ratio] 14.8 % High 11.6-14.6 [facility] Comment on above: Performed By: #### L 500.2500, L100.0100 ####[facility] [address] [place], [address] Hematocrit (Bld) [Volume fraction] 29.2 % Low 37-47 [facility] Comment on above: Performed By: #### L 500.2500, L100.0100 ####[facility] [address] [place], [address] Hemoglobin (Bld) [Mass/Vol] 8.9 g/dL Low 12.0-15.0 [facility] Comment on above: Performed By: #### L 500.2500, L100.0100 ####[facility] [address] [place], [address] IG% 0.800 Normal 0.0-0.9 [facility] Comment on above: Result Comment: IG% - Immature Granulocytes (promyelocytes, myelocytes andmetamyelocytes) > 1% indicates that a LEFT SHIFT is Present. Performed By: #### L 500.2500, L100.0100 ####[facility] [address] [place], [address] Lymphocytes/100 WBC (Bld) 7.3 % Low 19-41 [facility] Comment on above: Performed By: #### L 500.2500, L100.0100 ####[facility] [address] [place], [address] MCH (RBC) [Entitic mass] 24.5 pg Low 27.0-32.0 [facility] Comment on above: Performed By: #### L 500.2500, L100.0100 ####[facility] [address] [place], [address] MCHC (RBC) [Mass/Vol] 30.5 g/dL Low 32-36 [facility] Comment on above: Performed By: #### L 500.2500, L100.0100 ####[facility] [address] [place], [address] MCV (RBC) [Entitic vol] 80.2 fL Low 81-99 [facility] Comment on above: Performed By: #### L 500.2500, L100.0100 ####[facility] [address] [place], [address] Monocytes/100 WBC (Bld) 4.7 % Normal 0-10 [facility] Comment on above: Performed By: #### L 500.2500, L100.0100 ####[facility] [facility] [address] [place], [address] Neutrophils/100 WBC (Bld) 87.0 % High 47-70 [facility] Comment on above: Performed By: #### L 500.2500, L100.0100 ####[facility] [address] [place], [address] Nucleated RBC (Bld) [#/Vol] 0 10*3/uL Normal 0-5 [facility] Comment on above: Performed By: #### L 500.2500, L100.0100 ####[facility] [address] [place], [address] Platelet mean volume (Bld) [Entitic vol] 12.0 fL Normal 6.2-12.0 [facility] Comment on above: Performed By: #### L 500.2500, L100.0100 ####[facility] [address] [place], [address] Platelets (Bld) [#/Vol] 195 10*3/uL Normal 150-450 [facility] Comment on above: Performed By: #### L 500.2500, L100.0100 ####[facility] [address] [place], [address] RBC (Bld) [#/Vol] 3.64 10*6/uL Low 4.2-5.4 [facility] Comment on above: Performed By: #### L 500.2500, L100.0100 ####[facility] [address] [place], [address] RDW SD 43.3 fl Normal 35.1-43.9 [facility] Comment on above: Performed By: #### L 500.2500, L100.0100 ####[facility] [address] [place], [address] WBC (Bld) [#/Vol] 6.1 10*3/uL Normal 4.4-11.0 [facility] Comment on above: Performed By: #### L 500.2500, L100.0100 ####[facility] [address] [place], [address] Basic Metabolic Profile (BMP )on 01-29-2025 BUN/CRE 27.6 RATIO High 10-20 [facility] Comment on above: Performed By: #### L 500.2500, L100.0100 ####[facility] [address] [place], [address] Calcium [Mass/Vol] 8.5 mg/dL Normal 7.6-11.0 [facility] Comment on above: Performed By: #### L 500.2500, L100.0100 ####[facility] [address] [place], [address] Chloride [Moles/Vol] 86 mmol/L Low 98-[address] [facility] Comment on above: Performed By: #### L 500.2500, L100.0100 ####[facility] [address] [place], [address] CO2 [Moles/Vol] 43.4 mmol/L High 21.0-32.0 [facility] Comment on above: Performed By: #### L 500.2500, L100.0100 ####[facility] [address] [place], [address] Creatinine [Mass/Vol] 0.56 mg/dL Low 0.70-1.20 [facility] Comment on above: Performed By: #### L 500.2500, L100.0100 ####[facility] [address] [place], [address] ECRCL 63.85 ml/min Normal 50-250 [facility] Comment on above: Performed By: #### L 500.2500, L100.0100 ####[facility] [address] [place], [address] GAP 10 Normal 5-15 [facility] Comment on above: Performed By: #### L 500.2500, L100.0100 ####[facility] [address] [place], [address] GFR/1.73 sq M.predicted among non-blacks MDRD (S/P/Bld) [Vol rate/Area] 99 mL/min/{1.73_m2} Normal >60 [facility] Comment on above: Result Comment: mL/m in/1.73m2 CKD-EPI Creatinine Equation (2020) Performed By: #### L 500.2500, L100.0100 ####[facility] [address] [place], [address] Glucose [Mass/Vol] 85 mg/dL Normal 70-99 [facility] Comment on above: Performed By: #### L 500.2500, L100.0100 ####[facility] [address] [place], [address] Potassium [Moles/Vol] 3.1 mmol/L Low 3.3-5.1 [facility] Comment on above: Performed By: #### L 500.2500, L100.0100 ####[facility] [address] [place], [address] Sodium [Moles/Vol] 139 mmol/L Normal 133-145 [facility] Comment on above: Performed By: #### L 500.2500, L100.0100 ####[facility] [address] [place], [address] Urea nitrogen [Mass/Vol] 15 mg/dL Normal 4-19 [facility] Comment on above: Performed By: #### L 500.2500, L100.0100 ####[facility] [address] [place], [address] CBC W/Diff, Automatedon 10-0 6-2025 Absolute Lymph 0.35 X10 3/uL Low 0.83-4.51 [facility] Comment on above: Performed By: #### L 500.2500, L100.0100 ####[facility] [address] [place], [address] Absolute Neut 6.4 X10 3/uL Normal 2.0-7.7 [facility] Comment on above: Performed By: #### L 500.2500, L100.0100 ####[facility] [address] [place], [address] Basophils/100 WBC (Bld) 0.1 % Normal 0-1 [facility] Comment on above: Performed By: #### L 500.2500, L100.0100 ####[facility] [address] [place], [address] Eosinophils/100 WBC (Bld) 0.0 % Normal 0-5 [facility] Comment on above: Performed By: #### L 500.2500, L100.0100 ####[facility] [address] [place], [address] Erythrocyte distribution width (RBC) [Ratio] 14.6 % Normal 11.6-14.6 [facility] Comment on above: Performed By: #### L 500.2500, L100.0100 ####[facility] [address] [place], [address] Hematocrit (Bld) [Volume fraction] 28.3 % Low 37-47 [facility] Comment on above: Performed By: #### L 500.2500, L100.0100 ####[facility] [address] [place], [address] Hemoglobin (Bld) [Mass/Vol] 9.0 g/dL Low 12.0-15.0 [facility] Comment on above: Performed By: #### L 500.2500, L100.0100 ####[facility] [address] [place], [address] IG% 0.600 Normal 0.0-0.9 [facility] Comment on above: Result Comment: IG% - Immature Granulocytes (promyelocytes, myelocytes andmetamyelocytes) > 1% indicates that a LEFT SHIFT is Present. Performed By: #### L 500.2500, L100.0100 ####[facility] [address] [place], [address] Lymphocytes/100 WBC (Bld) 5.0 % Low 19-41 [facility] Comment on above: Performed By: #### L 500.2500, L100.0100 ####[facility] [address] [place], [address] MCH (RBC) [Entitic mass] 25.0 pg Low 27.0-32.0 [facility] Comment on above: Performed By: #### L 500.2500, L100.0100 ####[facility] [address] [place], [address] MCHC (RBC) [Mass/Vol] 31.8 g/dL Low 32-36 [facility] Comment on above: Performed By: #### L 500.2500, L100.0100 ####[facility] [address] [place], [address] MCV (RBC) [Entitic vol] 78.6 fL Low 81-99 [facility] Comment on above: Performed By: #### L 500.2500, L100.0100 ####[facility] [address] [place], [address] Monocytes/100 WBC (Bld) 3.1 % Normal 0-10 [facility] Comment on above: Performed By: #### L 500.2500, L100.0100 ####[facility] [address] [place], [address] Neutrophils/100 WBC (Bld) 91.2 % High 47-70 [facility] Comment on above: Performed By: #### L 500.2500, L100.0100 ####[facility] [address] [place], [address] Nucleated RBC (Bld) [#/Vol] 0 10*3/uL Normal 0-5 [facility] Comment on above: Performed By: #### L 500.2500, L100.0100 ####[facility] [address] [place], [address] Platelet mean volume (Bld) [Entitic vol] 11.2 fL Normal 6.2-12.0 [facility] Comment on above: Performed By: #### L 500.2500, L100.0100 ####[facility] [address] [place], [address] Platelets (Bld) [#/Vol] 184 10*3/uL Normal 150-450 [facility] Comment on above: Performed By: #### L 500.2500, L100.0100 ####[facility] [address] [place], [address] RBC (Bld) [#/Vol] 3.60 10*6/uL Low 4.2-5.4 [facility] Comment on above: Performed By: #### L 500.2500, L100.0100 ####[facility] [address] [place], [address] RDW SD 42.1 fl Normal 35.1-43.9 [facility] Comment on above: Performed By: #### L 500.2500, L100.0100 ####[facility] [address] [place], [address] WBC (Bld) [#/Vol] 7.0 10*3/uL Normal 4.4-11.0 [facility] Comment on above: Performed By: #### L 500.2500, L100.0100 ####[facility] [address] 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 Dx: COPD J44.9 - Nebulizer Accessories [facility] Mask and supplies as needed - PULSE OXIMETER [facility] Use as directed to check oxygen saturation level - ammonium lactate (AMLACTIN) 12 % lotion Apply 1 application to affected area as needed for Dry Skin. - losartan (COZAAR) 50 mg tablet Take 0.5 tablets by mouth once daily. - OXYGEN, HOME THERAPY, 2.5 L/min by Nasal Cannula route continuous. Use as directred - Disposable Gloves (DISPOSABLE LATEX-FREE GLOVES) [facility] 1 Box once every month. ICD 10: [...] ESOPHAGE (more content not included)... Normal [facility] Electrocardiogram reportOrde red By: Amy Keenan on 01-29-2025 EKG study [facility] Work Phone: Modified Barium Swallow Stud yon 01-29-2025 Modified Barium Swallow Study Normal [facility] Basic Metabolic Profile (BMP )on 01-28-2025 BUN/CRE 27.8 RATIO High 10-20 [facility] Comment on above: Performed By: #### L 100.0100, L500.2500 ####[facility] [address] [place], [address] Calcium [Mass/Vol] 8.3 mg/dL Normal 7.6-11.0 [facility] Comment on above: Performed By: #### L 100.0100, L500.2500 ####[facility] [address] [place], [address] Chloride [Moles/Vol] 88 mmol/L Low 98-[address] [facility] Comment on above: Performed By: #### L 100.0100, L500.2500 ####[facility] [address] [place], [address] CO2 [Moles/Vol] 41.6 mmol/L High 21.0-32.0 [facility] Comment on above: Performed By: #### L 100.0100, L500.2500 ####[facility] [address] [place], [address] Creatinine [Mass/Vol] 0.59 mg/dL Low 0.70-1.20 [facility] Comment on above: Performed By: #### L 100.0100, L500.2500 ####[facility] [address] [place], [address] ECRCL 63.85 ml/min Normal 50-250 [facility] Comment on above: Performed By: #### L 100.0100, L500.2500 ####[facility] [address] [place], [address] GAP 12 Normal 5-15 [facility] Comment on above: Performed By: #### L 100.0100, L500.2500 ####[facility] [address] [place], [address] GFR/1.73 sq M.predicted among non-blacks MDRD (S/P/Bld) [Vol rate/Area] 98 mL/min/{1.73_m2} Normal >60 [facility] Comment on above: Result Comment: mL/m in/1.73m2 CKD-EPI Creatinine Equation (2020) Performed By: #### L 100.0100, L500.2500 ####[facility] [address] [place], [address] Glucose [Mass/Vol] 77 mg/dL Normal 70-99 [facility] Comment on above: Performed By: #### L 100.0100, L500.2500 ####[facility] [address] [place], [address] Potassium [Moles/Vol] 3.1 mmol/L Low 3.3-5.1 [facility] Comment on above: Performed By: #### L 100.0100, L500.2500 ####[facility] [address] [place], [address] Sodium [Moles/Vol] 142 mmol/L Normal 133-145 [facility] Comment on above: Performed By: #### L 100.0100, L500.2500 ####[facility] [address] [place], [address] Urea nitrogen [Mass/Vol] 16 mg/dL Normal 4-19 [facility] Comment on above: Performed By: #### L 100.0100, L500.2500 ####[facility] [address] [place], [address] CBC W/Diff, Automatedon 10-0 5-2025 Absolute Lymph 0.41 X10 3/uL Low 0.83-4.51 [facility] Comment on above: Performed By: #### L 100.0100, L500.2500 ####[facility] [address] [place], [address] Absolute Neut 7.5 X10 3/uL Normal 2.0-7.7 [facility] Comment on above: Performed By: #### L 100.0100, L500.2500 ####[facility] [address] [place], [address] Basophils/100 WBC (Bld) 0.1 % Normal 0-1 [facility] Comment on above: Performed By: #### L 100.0100, L500.2500 ####[facility] [address] [place], [address] Eosinophils/100 WBC (Bld) 0.0 % Normal 0-5 [facility] Comment on above: Performed By: #### L 100.0100, L500.2500 ####[facility] [address] [place], [address] Erythrocyte distribution width (RBC) [Ratio] 14.6 % Normal 11.6-14.6 [facility] Comment on above: Performed By: #### L 100.0100, L500.2500 ####[facility] [address] [place], [address] Hematocrit (Bld) [Volume fraction] 29.6 % Low 37-47 [facility] Comment on above: Performed By: #### L 100.0100, L500.2500 ####[facility] [address] [place], [address] Hemoglobin (Bld) [Mass/Vol] 9.2 g/dL Low 12.0-15.0 [facility] Comment on above: Performed By: #### L 100.0100, L500.2500 ####[facility] [address] [place], [address] IG% 0.500 Normal 0.0-0.9 [facility] Comment on above: Result Comment: IG% - Immature Granulocytes (promyelocytes, myelocytes andmetamyelocytes) > 1% indicates that a LEFT SHIFT is Present. Performed By: #### L 100.0100, L500.2500 ####[facility] [address] [place], [address] Lymphocytes/100 WBC (Bld) 4.8 % Low 19-41 [facility] Comment on above: Performed By: #### L 100.0100, L500.2500 ####[facility] [address] [place], [address] MCH (RBC) [Entitic mass] 24.7 pg Low 27.0-32.0 [facility] Comment on above: Performed By: #### L 100.0100, L500.2500 ####[facility] [address] [place], [address] MCHC (RBC) [Mass/Vol] 31.1 g/dL Low 32-36 [facility] Comment on above: Performed By: #### L 100.0100, L500.2500 ####[facility] [address] [place], [address] MCV (RBC) [Entitic vol] 79.4 fL Low 81-99 [facility] Comment on above: Performed By: #### L 100.0100, L500.2500 ####[facility] [address] [place], [address] Monocytes/100 WBC (Bld) 6.0 % Normal 0-10 [facility] Comment on above: Performed By: #### L 100.0100, L500.2500 ####[facility] [address] [place], [address] Neutrophils/100 WBC (Bld) 88.6 % High 47-70 [facility] Comment on above: Performed By: #### L 100.0100, L500.2500 ####[facility] [address] [place], [address] Nucleated RBC (Bld) [#/Vol] 0 10*3/uL Normal 0-5 [facility] Comment on above: Performed By: #### L 100.0100, L500.2500 ####[facility] [address] [place], [address] Platelet mean volume (Bld) [Entitic vol] 11.0 fL Normal 6.2-12.0 [facility] Comment on above: Performed By: #### L 100.0100, L500.2500 ####[facility] [address] [place], [address] Platelets (Bld) [#/Vol] 208 10*3/uL Normal 150-450 [facility] Comment on above: Performed By: #### L 100.0100, L500.2500 ####[facility] [address] [place], [address] RBC (Bld) [#/Vol] 3.73 10*6/uL Low 4.2-5.4 [facility] Comment on above: Performed By: #### L 100.0100, L500.2500 ####[facility] [address] [place], [address] RDW SD 42.4 fl Normal 35.1-43.9 [facility] Comment on above: Performed By: #### L 100.0100, L500.2500 ####[facility] [address] [place], [address] WBC (Bld) [#/Vol] 8.5 10*3/uL Normal 4.4-11.0 [facility] Comment on above: Performed By: #### L 100.0100, L500.2500 ####[facility] [address] [place], [address] Assessment of wrist artery p atency prior to arterial punctureOrdered By: Debby Gu on 01-27-2025 Arterial patency Wrist artery --pre arterial puncture Positive [facility] Basic Metabolic Profile (BMP )on 01-27-2025 BUN/CRE 27.2 RATIO High 10-20 [facility] Comment on above: Order Comment: post potassium Performed By: #### L 500.2500 ####[facility] [address] [place], [address] Calcium [Mass/Vol] 8.4 mg/dL Normal 7.6-11.0 [facility] Comment on above: Order Comment: post potassium Performed By: #### L 500.2500 ####[facility] [address] [place], [address] Chloride [Moles/Vol] 88 mmol/L Low 98-[address] [facility] Comment on above: Order Comment: post potassium Performed By: #### L 500.2500 ####[facility] [address] [place], [address] CO2 [Moles/Vol] 41.8 mmol/L High 21.0-32.0 [facility] Comment on above: Order Comment: post potassium Performed By: #### L 500.2500 ####[facility] [address] [place], [address] Creatinine [Mass/Vol] 0.68 mg/dL Low 0.70-1.20 [facility] Comment on above: Order Comment: post potassium Performed By: #### L 500.2500 ####[facility] [address] [place], [address] ECRCL 65.40 ml/min Normal 50-250 [facility] Comment on above: Order Comment: post potassium Performed By: #### L 500.2500 ####[facility] [address] [place], [address] GAP 11 Normal 5-15 [facility] Comment on above: Order Comment: post potassium Performed By: #### L 500.2500 ####[facility] [address] [place], [address] GFR/1.73 sq M.predicted among non-blacks MDRD (S/P/Bld) [Vol rate/Area] 94 mL/min/{1.73_m2} Normal >60 [facility] Comment on above: Order Comment: post potassium Result Comment: mL/m in/1.73m2 CKD-EPI Creatinine Equation (2020) Performed By: #### L 500.2500 ####[facility] [address] [place], [address] Glucose [Mass/Vol] 78 mg/dL Normal 70-99 [facility] Comment on above: Order Comment: post potassium Performed By: #### L 500.2500 ####[facility] [address] [place], [address] Potassium [Moles/Vol] 3.6 mmol/L Normal 3.3-5.1 [facility] Comment on above: Order Comment: post potassium Performed By: #### L 500.2500 ####[facility] [address] [place], [address] Sodium [Moles/Vol] 140 mmol/L Normal 133-145 [facility] Comment on above: Order Comment: post potassium Performed By: #### L 500.2500 ####[facility] [address] [place], [address] Urea nitrogen [Mass/Vol] 19 mg/dL Normal 4-19 [facility] Comment on above: Order Comment: post potassium Performed By: #### L 500.2500 ####[facility] [address] [place], [address] BUN/CRE 28.6 RATIO High 10-20 [facility] Comment on above: Performed By: #### L 100.0100, L500.2500 ####[facility] [address] [place], [address] Calcium [Mass/Vol] 8.5 mg/dL Normal 7.6-11.0 [facility] Comment on above: Performed By: #### L 100.0100, L500.2500 ####[facility] [address] [place], [address] Chloride [Moles/Vol] 87 mmol/L Low 98-[address] [facility] Comment on above: Performed By: #### L 100.0100, L500.2500 ####[facility] [address] [place], [address] CO2 [Moles/Vol] 38.5 mmol/L High 21.0-32.0 [facility] Comment on above: Performed By: #### L 100.0100, L500.2500 ####[facility] [address] [place], [address] Creatinine [Mass/Vol] 0.72 mg/dL Normal 0.70-1.20 [facility] Comment on above: Performed By: #### L 100.0100, L500.2500 ####[facility] [address] [place], [address] ECRCL 65.40 ml/min Normal 50-250 [facility] Comment on above: Performed By: #### L 100.0100, L500.2500 ####[facility] [address] [place], [address] GAP 12 Normal 5-15 [facility] Comment on above: Performed By: #### L 100.0100, L500.2500 ####[facility] [address] [place], [address] GFR/1.73 sq M.predicted among non-blacks MDRD (S/P/Bld) [Vol rate/Area] 90 mL/min/{1.73_m2} Normal >60 [facility] Comment on above: Result Comment: mL/m in/1.73m2 CKD-EPI Creatinine Equation (2020) Performed By: #### L 100.0100, L500.2500 ####[facility] [address] [place], [address] Glucose [Mass/Vol] 101 mg/dL High 70-99 [facility] Comment on above: Performed By: #### L 100.0100, L500.2500 ####[facility] [address] [place], [address] Potassium [Moles/Vol] 2.8 mmol/L Low 3.3-5.1 [facility] Comment on above: Performed By: #### L 100.0100, L500.2500 ####[facility] [address] [place], [address] Sodium [Moles/Vol] 138 mmol/L Normal 133-145 [facility] Comment on above: Performed By: #### L 100.0100, L500.2500 ####[facility] [address] [place], [address] Urea nitrogen [Mass/Vol] 21 mg/dL High 4-19 [facility] Comment on above: Performed By: #### L 100.0100, L500.2500 ####[facility] [address] [place], [address] Blood Gases by [facility] 025 CHAO TEST Positive Normal [facility] Comment on above: Performed By: #### L 9000.0800 ####[facility] [address] [place], [address] Base excess Calc (Bld) [Moles/Vol] 24 mmol/L High -2 to +2 [facility] Comment on above: Performed By: #### L 9000.0800 ####[facility] [address] [place], [address] Blood Gas Type ART Normal [facility] Comment on above: Performed By: #### L 9000.0800 ####[facility] [address] [place], [address] CO2 [Moles/Vol] 48 mmol/L Normal [facility] Comment on above: Performed By: #### L 9000.0800 ####[facility] [address] [place], [address] FI02 35.0 Normal [facility] Comment on above: Performed By: #### L 9000.0800 ####[facility] [address] [place], [address] HCO3 (Bld) [Moles/Vol] 46.4 mmol/L High 22-26 [facility] Comment on above: Performed By: #### L 9000.0800 ####[facility] [address] [place], [address] Mode PS Normal [facility] Comment on above: Performed By: #### L 9000.0800 ####[facility] [address] [place], [address] O2 Delivery Dev Adult Vent Normal [facility] Comment on above: Performed By: #### L 9000.0800 ####[facility] [address] [place], [address] pCO2 52.7 mmHg High 35-45 [facility] Comment on above: Performed By: #### L 9000.0800 ####[facility] [address] [place], [address] PEEP 5 Normal [facility] Comment on above: Performed By: #### L 9000.0800 ####[facility] [address] [place], [address] pH (Bld) 7.55 [pH] High 7.35-7.45 [facility] Comment on above: Performed By: #### L 9000.0800 ####[facility] [address] [place], [address] PO2 60 mmHG Low 75-100 [facility] Comment on above: Performed By: #### L 9000.0800 ####[facility] [address] [place], [address] SITE L Radial Normal [facility] Comment on above: Performed By: #### L 9000.0800 ####[facility] [address] [place], [address] SO2 93 Low 95-99 [facility] Comment on above: Performed By: #### L 9000.0800 ####[place] [facility] [address] [place], [address] CHAO TEST N/A Normal [facility] Comment on above: Performed By: #### L 8999.0800 ####[facility] [address] [place], [address] Base excess Calc (Bld) [Moles/Vol] 20 mmol/L High -2 to +2 [facility] Comment on above: Performed By: #### L 8999.0800 ####[facility] [address] [place], [address] Blood Gas Type ART Normal [facility] Comment on above: Performed By: #### L 8999.08 ####[facility] [address] [place], [address] CO2 [Moles/Vol] 45 mmol/L Normal [facility] Comment on above: Performed By: #### L 8999.0800 ####[facility] [address] [place], [address] FI02 35.0 Normal [facility] Comment on above: Performed By: #### L 0.0800 ####[facility] [address] [place], [address] HCO3 (Bld) [Moles/Vol] 43.7 mmol/L High 22-26 [facility] Comment on above: Performed By: #### L 8999.0800 ####[facility] [address] [place], [address] Mode AC Normal [facility] Comment on above: Performed By: #### L 0.0800 ####[facility] [address] [place], [address] O2 Delivery Dev Adult Vent Normal [facility] Comment on above: Performed By: #### L 0.0800 ####[facility] [address] [place], [address] pCO2 57.2 mmHg High 35-45 [facility] Comment on above: Performed By: #### L 0.0800 ####[facility] [address] [place], [address] PEEP 5 Normal [facility] Comment on above: Performed By: #### L 8999.0800 ####[facility] [address] [place], [address] pH (Bld) 7.49 [pH] High 7.35-7.45 [facility] Comment on above: Performed By: #### L 8999.0800 ####[facility] [address] [place], [address] PO2 72 mmHG Low 75-100 [facility] Comment on above: Performed By: #### L 0.0800 ####[facility] [address] [place], [address] RR 12 Normal [facility] Comment on above: Performed By: #### L 8999.0800 ####[facility] [address] [place], [address] SITE L Radial Normal [facility] Comment on above: Performed By: #### L 8999.0800 ####[facility] [address] [place], [address] SO2 95 Normal 95-99 [facility] Comment on above: Performed By: #### L 0.0800 ####[facility] [address] [place], [address] Vt 400.0 mL Normal [facility] Comment on above: Performed By: #### L 9000.0800 ####[facility] [address] [place], [address] Blood base excess determinat ionOrdered By: Debby Gu on 01-27-2025 Base excess Calc (BldV) [Moles/Vol] 24 mmol/L High -2-2 [facility] Blood bicarbonate measuremen tOrdered By: Debby Gu on 01-27-2025 HCO3 (Bld) [Moles/Vol] 46.4 mmol/L High 22-26 [facility] CBC W/Diff, Automatedon 10-0 Absolute Lymph 0.28 X10 3/uL Low 0.83-4.51 [facility] Comment on above: Performed By: #### L 100.0100, L500.2500 ####[facility] [address] [place], [address] Absolute Neut 5.8 X10 3/uL Normal 2.0-7.7 [facility] Comment on above: Performed By: #### L 100.0100, L500.2500 ####[facility] [address] [place], [address] Basophils/100 WBC (Bld) 0.0 % Normal 0-1 [facility] Comment on above: Performed By: #### L 100.0100, L500.2500 ####[facility] [address] [place], [address] Eosinophils/100 WBC (Bld) 0.0 % Normal 0-5 [facility] Comment on above: Performed By: #### L 100.0100, L500.2500 ####[facility] [address] [place], [address] Erythrocyte distribution width (RBC) [Ratio] 14.4 % Normal 11.6-14.6 [facility] Comment on above: Performed By: #### L 100.0100, L500.2500 ####[facility] [address] [place], [address] Hematocrit (Bld) [Volume fraction] 27.9 % Low 37-47 [facility] Comment on above: Performed By: #### L 100.0100, L500.2500 ####[facility] [address] [place], [address] Hemoglobin (Bld) [Mass/Vol] 8.9 g/dL Low 12.0-15.0 [facility] Comment on above: Performed By: #### L 100.0100, L500.2500 ####[facility] [address] [place], [address] IG% 0.500 Normal 0.0-0.9 [facility] Comment on above: Result Comment: IG% - Immature Granulocytes (promyelocytes, myelocytes andmetamyelocytes) > 1% indicates that a LEFT SHIFT is Present. Performed By: #### L 100.0100, L500.2500 ####[facility] [address] [place], [address] Lymphocytes/100 WBC (Bld) 4.4 % Low 19-41 [facility] Comment on above: Performed By: #### L 100.0100, L500.2500 ####[facility] [address] [place], [address] MCH (RBC) [Entitic mass] 24.7 pg Low 27.0-32.0 [facility] Comment on above: Performed By: #### L 100.0100, L500.2500 ####[facility] [address] [place], [address] MCHC (RBC) [Mass/Vol] 31.9 g/dL Low 32-36 [facility] Comment on above: Performed By: #### L 100.0100, L500.2500 ####[facility] [address] [place], [address] MCV (RBC) [Entitic vol] 77.3 fL Low 81-99 [facility] Comment on above: Performed By: #### L 100.0100, L500.2500 ####[facility] [address] [place], [address] Monocytes/100 WBC (Bld) 5.3 % Normal 0-10 [facility] Comment on above: Performed By: #### L 100.0100, L500.2500 ####[facility] [address] [place], [address] Neutrophils/100 WBC (Bld) 89.8 % High 47-70 [facility] Comment on above: Performed By: #### L 100.0100, L500.2500 ####[facility] [address] [place], [address] Nucleated RBC (Bld) [#/Vol] 0 10*3/uL Normal 0-5 [facility] Comment on above: Performed By: #### L 100.0100, L500.2500 ####[facility] [address] [place], [address] Platelet mean volume (Bld) [Entitic vol] 10.2 fL Normal 6.2-12.0 [facility] Comment on above: Performed By: #### L 100.0100, L500.2500 ####[facility] [address] [place], [address] Platelets (Bld) [#/Vol] 199 10*3/uL Normal 150-450 [facility] Comment on above: Performed By: #### L 100.0100, L500.2500 ####[facility] [address] [place], [address] RBC (Bld) [#/Vol] 3.61 10*6/uL Low 4.2-5.4 [facility] Comment on above: Performed By: #### L 100.0100, L500.2500 ####[facility] [address] [place], [address] RDW SD 40.8 fl Normal 35.1-43.9 [facility] Comment on above: Performed By: #### L 100.0100, L500.2500 ####[facility] [address] [place], [address] WBC (Bld) [#/Vol] 6.4 10*3/uL Normal 4.4-11.0 [facility] Comment on above: Performed By: #### L 100.0100, L500.2500 ####[facility] [address] [place], [address] Chest 1 View (Portable)on Chest 1 View (Portable) Normal [facility] Culture, Blood (WB)on 2024 CUB Blood cultures x2, from two different sites No growth in 5 days. Normal [facility] Comment on above: Performed By: #### M 200.1000 ####[facility] [address] [place], [address] HH, Hemoglobin AND Hematocri ton 01-27-2025 Hematocrit (Bld) [Volume fraction] 25.8 % Low 37-47 [facility] Comment on above: Performed By: #### L 100.0600 ####[facility] [address] [place], [address] Hemoglobin (Bld) [Mass/Vol] 8.5 g/dL Low 12.0-15.0 [facility] Comment on above: Performed By: #### L 100.0600 ####[facility] [address] [place], [address] Measurement, pHOrdered By: Ceasar Gu on 01-27-2025 pH (Unsp spec) 7.55 [pH] High 7.35-7.45 [facility] No Panel InformationOrdered By: Debby Gu on 01-27-2025 ART [facility] L Radial [facility] PS [facility] Adult Vent [facility] 5 [facility] No Panel InformationOrdered By: Alessandro Palma on 01-27-2025 400.0 mL [facility] 12 [facility] Respiratory Cultureon 2024 RESPC Normal [facility] Comment on above: Performed By: #### M 100.2400, M100.2000 ####[facility] [address] [place], [address] Total carbon dioxide measure mentOrdered By: Debby Gu on 01-27-2025 CO2 [Moles/Vol] 48 mmol/L [facility] Abdomen Single View (Portabl e)on 01-26-2025 Abdomen Single View (Portable) Normal [facility] Activated partial thrombopla stin time (aPTT) in platelet poor plasma by coagulation aOrdered By: Andriy Guzmán on 01-26-2025 aPTT Coag (PPP) [Time] 36.1 s 24.1-36.2 [place] BRCon 01-26-2025 RC Normal [facility] Comment on above: Result Comment: [id number] AP RC TRANSFUSED 01/26/25 1621 Performed By: #### B RC ####[facility] [address] [place], [address] Basic Metabolic Profile (BMP )on 01-26-2025 BUN/CRE 38.6 RATIO High 10-20 [facility] Comment on above: Performed By: #### L 100.0100, L500.2500 ####[facility] [address] [place], [address] Calcium [Mass/Vol] 8.4 mg/dL Normal 7.6-11.0 [facility] Comment on above: Performed By: #### L 100.0100, L500.2500 ####[facility] [address] [place], [address] Chloride [Moles/Vol] 86 mmol/L Low 98-[address] [facility] Comment on above: Performed By: #### L 100.0100, L500.2500 ####[facility] [address] [place], [address] CO2 [Moles/Vol] 39.2 mmol/L High 21.0-32.0 [facility] Comment on above: Performed By: #### L 100.0100, L500.2500 ####[facility] [address] [place], [address] Creatinine [Mass/Vol] 0.68 mg/dL Low 0.70-1.20 [facility] Comment on above: Performed By: #### L 100.0100, L500.2500 ####[facility] [address] [place], [address] ECRCL 65.19 ml/min Normal 50-250 [facility] Comment on above: Performed By: #### L 100.0100, L500.2500 ####[facility] [address] [place], [address] GAP 10 Normal 5-15 [facility] Comment on above: Performed By: #### L 100.0100, L500.2500 ####[facility] [address] [place], [address] GFR/1.73 sq M.predicted among non-blacks MDRD (S/P/Bld) [Vol rate/Area] 94 mL/min/{1.73_m2} Normal >60 [facility] Comment on above: Result Comment: mL/m in/1.73m2 CKD-EPI Creatinine Equation (2020) Performed By: #### L 100.0100, L500.2500 ####[facility] [address] [place], [address] Glucose [Mass/Vol] 114 mg/dL High 70-99 [facility] Comment on above: Performed By: #### L 100.0100, L500.2500 ####[facility] [address] [place], [address] Potassium [Moles/Vol] 3.1 mmol/L Low 3.3-5.1 [facility] Comment on above: Performed By: #### L 100.0100, L500.2500 ####[facility] [address] [place], [address] Sodium [Moles/Vol] 135 mmol/L Normal 133-145 [facility] Comment on above: Performed By: #### L 100.0100, L500.2500 ####[facility] [address] [place], [address] Urea nitrogen [Mass/Vol] 26 mg/dL High 4-19 [facility] Comment on above: Performed By: #### L 100.0100, L500.2500 ####[facility] [address] [place], [address] Bilirubin directOrdered By: Andriy Guzmán on 01-26-2025 Bilirubin.direct [Mass/Vol] 0.19 mg/dL Normal 0.00-0.30 [facility] Comment on above: Performed By: #### L 300.3900, L300.4310, L500.3400 ####[facility] [address] [place], [address] Bilirubin, totalOrdered By: Andriy Guzmán on 01-26-2025 Bilirubin [Mass/Vol] 0.33 mg/dL Normal 0.00-1.[address] [facility] Comment on above: Performed By: #### L 300.3900, L300.4310, L500.3400 ####[facility] [address] [place], [address] Blood Gases by [facility] 025 CHAO TEST N/A Normal [facility] Comment on above: Performed By: #### L 9000.0800 ####[facility] [address] [place], [address] Base excess Calc (Bld) [Moles/Vol] 20 mmol/L High -2 to +2 [facility] Comment on above: Performed By: #### L 9000.0800 ####[facility] [address] [place], [address] Blood Gas Type ART Normal [facility] Comment on above: Performed By: #### L 9000.0800 ####[facility] [address] [place], [address] CO2 [Moles/Vol] 44 mmol/L Normal [facility] Comment on above: Performed By: #### L 9000.0800 ####[facility] [address] [place], [address] FI02 35.0 Normal [facility] Comment on above: Performed By: #### L 9000.0800 ####[facility] [address] [place], [address] HCO3 (Bld) [Moles/Vol] 42.4 mmol/L High 22-26 [facility] Comment on above: Performed By: #### L 9000.0800 ####[facility] [address] [place], [address] Mode AC Normal [facility] Comment on above: Performed By: #### L 9000.0800 ####[facility] [address] [place], [address] O2 Delivery Dev Adult Vent Normal [facility] Comment on above: Performed By: #### L 9000.0800 ####[facility] [address] [place], [address] pCO2 52.7 mmHg High 35-45 [facility] Comment on above: Performed By: #### L 9000.0800 ####[facility] [address] [place], [address] PEEP 5 Normal [facility] Comment on above: Performed By: #### L 0.0800 ####[facility] [address] [place], [address] pH (Bld) 7.51 [pH] High 7.35-7.45 [facility] Comment on above: Performed By: #### L 9000.0800 ####[facility] [address] [place], [address] PO2 64 mmHG Low 75-100 [facility] Comment on above: Performed By: #### L 9000.0800 ####[facility] [address] [place], [address] RR 12 Normal [facility] Comment on above: Performed By: #### L 0.0800 ####[facility] [address] [place], [address] SITE L Radial Normal [facility] Comment on above: Performed By: #### L 9000.0800 ####[facility] [address] [place], [address] SO2 93 Low 95-99 [facility] Comment on above: Performed By: #### L 9000.0800 ####[facility] [address] [place], [address] Vt 400.0 mL Normal [facility] Comment on above: Performed By: #### L 9000.0800 ####[facility] [address] [place], [address] CBC W/Diff, Automatedon 10-0 3-2025 Absolute Lymph 0.27 X10 3/uL Low 0.83-4.51 [facility] Comment on above: Performed By: #### L 100.0100, L500.2500 ####[facility] [address] [place], [address] Absolute Neut 7.5 X10 3/uL Normal 2.0-7.7 [facility] Comment on above: Performed By: #### L 100.0100, L500.2500 ####[facility] [address] [place], [address] Basophils/100 WBC (Bld) 0.1 % Normal 0-1 [facility] Comment on above: Performed By: #### L 100.0100, L500.2500 ####[facility] [address] [place], [address] Eosinophils/100 WBC (Bld) 0.0 % Normal 0-5 [facility] Comment on above: Performed By: #### L 100.0100, L500.2500 ####[facility] [address] [place], [address] Erythrocyte distribution width (RBC) [Ratio] 13.9 % Normal 11.6-14.6 [facility] Comment on above: Performed By: #### L 100.0100, L500.2500 ####[facility] [address] [place], [address] Hematocrit (Bld) [Volume fraction] 23.7 % Low 37-47 [facility] Comment on above: Performed By: #### L 100.0100, L500.2500 ####[facility] [address] [place], [address] Hemoglobin (Bld) [Mass/Vol] 7.4 g/dL Low 12.0-15.0 [facility] Comment on above: Performed By: #### L 100.0100, L500.2500 ####[facility] [address] [place], [address] IG% 0.500 Normal 0.0-0.9 [facility] Comment on above: Result Comment: IG% - Immature Granulocytes (promyelocytes, myelocytes andmetamyelocytes) > 1% indicates that a LEFT SHIFT is Present. Performed By: #### L 100.0100, L500.2500 ####[facility] [address] [place], [address] Lymphocytes/100 WBC (Bld) 3.3 % Low 19-41 [facility] Comment on above: Performed By: #### L 100.0100, L500.2500 ####[facility] [address] [place], [address] MCH (RBC) [Entitic mass] 24.0 pg Low 27.0-32.0 [facility] Comment on above: Performed By: #### L 100.0100, L500.2500 ####[facility] [address] [place], [address] MCHC (RBC) [Mass/Vol] 31.2 g/dL Low 32-36 [facility] Comment on above: Performed By: #### L 100.0100, L500.2500 ####[facility] [address] [place], [address] MCV (RBC) [Entitic vol] 76.9 fL Low 81-99 [facility] Comment on above: Performed By: #### L 100.0100, L500.2500 ####[facility] [address] [place], [address] Monocytes/100 WBC (Bld) 4.6 % Normal 0-10 [facility] Comment on above: Performed By: #### L 100.0100, L500.2500 ####[facility] [address] [place], [address] Neutrophils/100 WBC (Bld) 91.5 % High 47-70 [facility] Comment on above: Performed By: #### L 100.0100, L500.2500 ####[facility] [address] [place], [address] Nucleated RBC (Bld) [#/Vol] 0 10*3/uL Normal 0-5 [facility] Comment on above: Performed By: #### L 100.0100, L500.2500 ####[facility] [address] [place], [address] Platelet mean volume (Bld) [Entitic vol] 10.9 fL Normal 6.2-12.0 [facility] Comment on above: Performed By: #### L 100.0100, L500.2500 ####[facility] [address] [place], [address] Platelets (Bld) [#/Vol] 240 10*3/uL Normal 150-450 [facility] Comment on above: Performed By: #### L 100.0100, L500.2500 ####[facility] [address] [place], [address] RBC (Bld) [#/Vol] 3.08 10*6/uL Low 4.2-5.4 [facility] Comment on above: Performed By: #### L 100.0100, L500.2500 ####[facility] [address] [place], [address] RDW SD 38.9 fl Normal 35.1-43.9 [facility] Comment on above: Performed By: #### L 100.0100, L500.2500 ####[facility] [address] [place], [address] WBC (Bld) [#/Vol] 8.2 10*3/uL Normal 4.4-11.0 [facility] Comment on above: Performed By: #### L 100.0100, L500.2500 ####[facility] [address] [place], [address] Absolute Lymph 0.30 X10 3/uL Low 0.83-4.51 [facility] Comment on above: Performed By: #### L 100.0100 ####[facility] [address] [place], [address] Absolute Neut 6.2 X10 3/uL Normal 2.0-7.7 [facility] Comment on above: Performed By: #### L 100.0100 ####[facility] [address] [place], [address] Basophils/100 WBC (Bld) 0.1 % Normal 0-1 [facility] Comment on above: Performed By: #### L 100.0100 ####[facility] [address] [place], [address] Eosinophils/100 WBC (Bld) 0.0 % Normal 0-5 [facility] Comment on above: Performed By: #### L 100.0100 ####[facility] [address] [place], [address] Erythrocyte distribution width (RBC) [Ratio] 13.8 % Normal 11.6-14.6 [facility] Comment on above: Performed By: #### L 100.0100 ####[facility] [address] [place], [address] Hematocrit (Bld) [Volume fraction] 22.8 % Low 37-47 [facility] Comment on above: Performed By: #### L 100.0100 ####[facility] [address] [place], [address] Hemoglobin (Bld) [Mass/Vol] 7.1 g/dL Low 12.0-15.0 [facility] Comment on above: Performed By: #### L 100.0100 ####[facility] [address] [place], [address] IG% 0.400 Normal 0.0-0.9 [facility] Comment on above: Result Comment: IG% - Immature Granulocytes (promyelocytes, myelocytes andmetamyelocytes) > 1% indicates that a LEFT SHIFT is Present. Performed By: #### L 100.0100 ####[facility] [address] [place], [address] Lymphocytes/100 WBC (Bld) 4.4 % Low 19-41 [facility] Comment on above: Performed By: #### L 100.0100 ####[facility] [address] [place], [address] MCH (RBC) [Entitic mass] 24.3 pg Low 27.0-32.0 [facility] Comment on above: Performed By: #### L 100.0100 ####[facility] [address] [place], [address] MCHC (RBC) [Mass/Vol] 31.1 g/dL Low 32-36 [facility] Comment on above: Performed By: #### L 100.0100 ####[facility] [address] [place], [address] MCV (RBC) [Entitic vol] 78.1 fL Low 81-99 [facility] Comment on above: Performed By: #### L 100.0100 ####[facility] [address] [place], [address] Monocytes/100 WBC (Bld) 4.2 % Normal 0-10 [facility] Comment on above: Performed By: #### L 100.0100 ####[facility] [address] [place], [address] Neutrophils/100 WBC (Bld) 90.9 % High 47-70 [facility] Comment on above: Performed By: #### L 100.0100 ####[facility] [address] [place], [address] Nucleated RBC (Bld) [#/Vol] 0 10*3/uL Normal 0-5 [facility] Comment on above: Performed By: #### L 100.0100 ####[facility] [address] [place], [address] Platelet mean volume (Bld) [Entitic vol] 11.2 fL Normal 6.2-12.0 [facility] Comment on above: Performed By: #### L 100.0100 ####[facility] [address] [place], [address] Platelets (Bld) [#/Vol] 212 10*3/uL Normal 150-450 [facility] Comment on above: Performed By: #### L 100.0100 ####[facility] [address] [place], [address] RBC (Bld) [#/Vol] 2.92 10*6/uL Low 4.2-5.4 [facility] Comment on above: Performed By: #### L 100.0100 ####[facility] [address] [place], [address] RDW SD 39.6 fl Normal 35.1-43.9 [facility] Comment on above: Performed By: #### L 100.0100 ####[facility] [address] [place], [address] WBC (Bld) [#/Vol] 6.9 10*3/uL Normal 4.4-11.0 [facility] Comment on above: Performed By: #### L 100.0100 ####[facility] [address] [place], [address] Chest 1 View (Portable)on Chest 1 View (Portable) Normal [facility] Consultation - Cardiologyon 01-26-2025 Consultation - Cardiology Normal [facility] Echo, Limited Studyon 2024 Echo, Limited Study Normal [facility] HH, Hemoglobin AND Hematocri ton 01-26-2025 Hematocrit (Bld) [Volume fraction] 26.2 % Low 37-47 [facility] Comment on above: Performed By: #### L 100.0600 ####[facility] [address] [place], [address] Hemoglobin (Bld) [Mass/Vol] 8.8 g/dL Low 12.0-15.0 [facility] Comment on above: Performed By: #### L 100.0600 ####[facility] [address] [place], [address] HCT Normal 37-47 [facility] Comment on above: Result Comment: ICU CALLED TO CANCEL (MIMI) Performed By: #### L 100.0600 ####[facility] [address] [place], [address] HGB Normal 12.0-15.0 [facility] Comment on above: Result Comment: ICU CALLED TO CANCEL (MIMI) Performed By: #### L 100.0600 ####[facility] [address] [place], [address] Hematocrit (Bld) [Volume fraction] 21.4 % Low 37-47 [facility] Comment on above: Performed By: #### L 100.0600 ####[facility] [address] [place], [address] Hemoglobin (Bld) [Mass/Vol] 6.7 g/dL Low 12.0-15.0 [facility] Comment on above: Performed By: #### L 100.0600 ####[facility] [address] [place], [address] Iron measurement (mass/mass) Ordered By: Alessandro Palma on 01-26-2025 Iron (Unsp spec) [Mass/Mass] 12 ug/dL Low 50-170 [facility] Iron+Iron Binding Capacityon 01-26-2025 Iron [Mass/Vol] 12 ug/dL Low 50-170 [facility] Comment on above: Performed By: #### L 503.6030, L100.9950, L503.6550 ####[facility] [address] [place], [address] IRON SATURATION 4.1 Low 13-59 [facility] Comment on above: Performed By: #### L 503.6030, L100.9950, L503.6550 ####[facility] [address] [place], [address] TIBC 280 ug/dL Normal 250-450 [facility] Comment on above: Performed By: #### L 503.6030, L100.9950, L503.6550 ####[facility] [address] [place], [address] UIBC 268 ug/dL Normal 228-428 [facility] Comment on above: Performed By: #### L 503.6030, L100.9950, L503.6550 ####[facility] [address] [place], [address] Limited echocardiogram repor tOrdered By: Amy Keenan on 01-26-2025 Study report [facility] Work Phone: Liver Profileon 01-26-2025 ALK PHOS 44 U/L Normal 35-104 [facility] Comment on above: Performed By: #### L 300.3900, L300.4310, L500.3400 ####[facility] [address] [place], [address] AST [Catalytic activity/Vol] 21 U/L Normal <=31 [facility] Comment on above: Performed By: #### L 300.3900, L300.4310, L500.3400 ####[facility] [address] [place], [address] T PROT 5.4 g/dL Low 5.9-8.4 [facility] Comment on above: Performed By: #### L 300.3900, L300.4310, L500.3400 ####[facility] [address] [place], [address] No Panel InformationOrdered By: Andriy Guzmán on 01-26-2025 21 U/L <32 [facility] No Panel InformationOrdered By: Alessandro Palma on 01-26-2025 268 ug/dL 228-428 [facility] Partial Thromboplast Timeon 01-26-2025 aPTT Coag (Bld) [Time] 36.1 s Normal 24.1-36.2 [place] Comment on above: Performed By: #### L 300.3900, L300.4310, L500.3400 ####[facility] [address] [place], [address] Prothrombin Time w/INRon INR Coag (PPP) [Relative time] 1.5 {INR} Normal [facility] Comment on above: Performed By: #### L 300.3900, L300.4310, L500.3400 ####[facility] [address] [place], [address] Prothrombin timeOrdered By: Andriy Guzmán on 01-26-2025 PT Coag (PPP) [Time] 18.2 s High 11.7-14.[address] [facility] Comment on above: Performed By: #### L 300.3900, L300.4310, L500.3400 ####[facility] [address] [place], [address] Retic Panelon 01-26-2025 IM RET FRACTION 16.90 High 3.00-15.90 [facility] Comment on above: Performed By: #### L 503.6030, L100.9950, L503.6550 ####[facility] [address] [place], [address] RET-HE 22.9 pg Low 30-35 [facility] Comment on above: Performed By: #### L 503.6030, L100.9950, L503.6550 ####[facility] [address] [place], [address] Retic Count 2.14 High 0.5-1.5 [facility] Comment on above: Performed By: #### L 503.6030, L100.9950, L503.6550 ####[facility] [address] [place], [address] Reticulocyte hemoglobin equi valent (RET-He) measurementOrdered By: Alessandro Palma on 01-26-2025 Hemoglobin (Reticulocytes) [Entitic mass] 22.9 pg Low 30-35 [facility] Reticulocytes Auto (Bld) [#/ Vol]Ordered By: Alessandro Palma on 01-26-2025 Reticulocytes/100 RBC (Bld) 2.14 % High 0.5-1.5 [facility] Serum globulin measurementOr dered By: Andriy Guzmán on 01-26-2025 Globulin (S) [Mass/Vol] 1.9 g/dL Low 2.2-4.2 [facility] Comment on above: Performed By: #### L 300.3900, L300.4310, L500.3400 ####[facility] [address] [place], [address] Serum or plasma alanine retana otransferase (ALT) measurementOrdered By: Andriy Guzmán on 01-26-2025 ALT [Catalytic activity/Vol] 19 U/L Normal <=34 [facility] Comment on above: Performed By: #### L 300.3900, L300.4310, L500.3400 ####[facility] [address] [place], [address] Serum or plasma albumin kadi urement (mass/volume)Ordered By: Andriy Guzmán on 01-26-2025 Albumin [Mass/Vol] 3.5 g/dL Normal 3.4-4.8 [facility] Comment on above: Performed By: #### L 300.3900, L300.4310, L500.3400 ####[facility] [address] [place], [place], [address] Serum or plasma alkaline renetta sphatase measurementOrdered By: Andriy Guzmán on 01-26-2025 ALP [Catalytic activity/Vol] 44 U/L 35-104 [facility] Serum or plasma ferritin ranjith surement (mass/volume)Ordered By: Alessandro Palma on 01-26-2025 Ferritin [Mass/Vol] 29 ng/mL Normal 22-378 [facility] Comment on above: Performed By: #### L 503.6030, L100.9950, L503.6550 ####[facility] [address] [place], [place], [address] Serum or plasma iron saturat ion measurement (mass fraction)Ordered By: Alessandro Palma on 01-26-2025 Iron saturation [Mass fraction] 4.1 % Low 13-59 [facility] Total proteinOrdered By: Spencer on 01-26-2025 Protein [Mass/Vol] 5.4 g/dL Low 5.9-8.4 [facility] Type AND Screenon 01-26-2025 Ab SCREEN GEL Negative Normal [facility] Comment on above: Order Comment: A Performed By: #### B TS ####[facility] [address] [place], [place], [address] ABO and Rh group Nom (Bld) Blood group A Rh(D) positive Normal [facility] Comment on above: Order Comment: A Performed By: #### B TS ####[facility] [address] [place], [place], [address] 12 Lead EKGon 01-25-2025 12 Lead EKG Normal [facility] Absolute lymphocyte countOrd ered By: Mercy Flores on 01-25-2025 Lymphocytes Auto (Unsp spec) [#/Vol] 1.53 10*3/uL 0.83-4.51 [facility] Anion gap in Serum or Plasma Ordered By: Mercy Flores on 01-25-2025 Anion gap [Moles/Vol] 9 mmol/L 5-15 [facility] Automated lymphocyte count a s percentage of total leukocytesOrdered By: Mercy Flores on 01-25-2025 Lymphocytes/100 WBC Auto (Unsp spec) 12.5 % Low 19-41 [facility] BUN/creatinine ratioOrdered By: Mercy Flores on 01-25-2025 Urea nitrogen/Creatinine [Mass ratio] 48.1 mg/mg High 02-12 [facility] Basic Metabolic Profile (BMP )on 01-25-2025 BUN/CRE 48.1 RATIO High 02-12 [facility] Comment on above: Performed By: #### L 500.2500, L100.0100 ####[facility] [address] [place], [address] ECRCL 65.65 ml/min Normal 50-250 [facility] Comment on above: Performed By: #### L 500.2500, L100.0100 ####[facility] [address] [place], [address] GAP 9 Normal - [facility] Comment on above: Performed By: #### L 500.2500, L100.0100 ####[facility] [address] [place], [address] Potassium [Moles/Vol] 3.5 mmol/L Normal 3.3-5.1 [facility] Comment on above: Performed By: #### L 500.2500, L100.0100 ####[facility] [address] [place], [address] Basophil percentageOrdered B y: Mercy Flores on 01-25-2025 Basophils/100 WBC (Bld) 0.2 % 0-1 [facility] Bilirubin Test strip Ql (U)O rdered By: Andriy Guzmán on 01-25-2025 Bilirubin Ql (U) Negative Negative [facility] Bilirubin directOrdered By: Alessandro Palma on 01-25-2025 Bilirubin.direct [Mass/Vol] 0.17 mg/dL 0.00-0.30 [facility] Bilirubin, totalOrdered By: Alessandro Palma on 01-25-2025 Bilirubin [Mass/Vol] 0.34 mg/dL 0.00-1.[address] [facility] Blood [facility] Base excess Calc (Bld) [Moles/Vol] 23 mmol/L High -2 to +2 [facility] Comment on above: Performed By: #### L 9000.0800 ####[facility] [address] [place], [address] Blood Gas Type ART Normal [facility] Comment on above: Performed By: #### L 9000.0800 ####[facility] [address] [place], [address] CO2 [Moles/Vol] 48 mmol/L Normal [facility] Comment on above: Performed By: #### L 9000.0800 ####[facility] [address] [place], [address] FI02 30.0 Normal [facility] Comment on above: Performed By: #### L 9000.0800 ####[facility] [address] [place], [address] HCO3 (Bld) [Moles/Vol] 46.3 mmol/L High 22-26 [facility] Comment on above: Performed By: #### L 9000.0800 ####[facility] [address] [place], [address] Mode AC Normal [facility] Comment on above: Performed By: #### L 9000.0800 ####[facility] [address] [place], [address] O2 Delivery Dev Adult Vent Normal [facility] Comment on above: Performed By: #### L 9000.0800 ####[facility] [address] [place], [address] pCO2 58.7 mmHg High 35-45 [facility] Comment on above: Performed By: #### L 9000.0800 ####[facility] [address] [place], [address] PEEP 5 Normal [facility] Comment on above: Performed By: #### L 9000.0800 ####[facility] [address] [place], [address] pH (Bld) 7.51 [pH] High 7.35-7.45 [facility] Comment on above: Performed By: #### L 9000.0800 ####[facility] [address] [place], [address] PO2 51 mmHG Low 75-100 [facility] Comment on above: Performed By: #### L 9000.0800 ####[facility] [address] [place], [address] RR 16 Normal [facility] Comment on above: Performed By: #### L 9000.0800 ####[facility] [address] [place], [address] SITE L Brach Normal [facility] Comment on above: Performed By: #### L 9000.0800 ####[facility] [address] [place], [address] SO2 87 Low 95-99 [facility] Comment on above: Performed By: #### L 9000.0800 ####[facility] [address] [place], [address] Vt 400.0 mL Normal [facility] Comment on above: Performed By: #### L 9000.0800 ####[facility] [address] [place], [address] Blood base excess determinat ionOrdered By: Mercy Flores on 01-25-2025 Base excess Calc (BldV) [Moles/Vol] 23 mmol/L High -2-2 [facility] Blood bicarbonate measuremen tOrdered By: Mercy Flores on 01-25-2025 HCO3 (Bld) [Moles/Vol] 46.3 mmol/L High 22-26 [facility] Blood cultureOrdered By: Keyla Flores on 01-25-2025 Bacteria identified Cx Nom (Bld) No growth in 5 days. [facility] Brain/Head without Contrasto n 01-25-2025 Brain/Head without Contrast Normal [facility] CBC W/Diff, Automatedon 10-0 Absolute Lymph 1.53 X10 3/uL Normal 0.83-4.51 [facility] Comment on above: Performed By: #### L 500.2500, L100.0100 ####[facility] [address] [place], [address] Absolute Neut 9.1 X10 3/uL High 2.0-7.7 [facility] Comment on above: Performed By: #### L 500.2500, L100.0100 ####[facility] [address] [place], [address] Basophils/100 WBC (Bld) 0.2 % Normal 0-1 [facility] Comment on above: Performed By: #### L 500.2500, L100.0100 ####[facility] [address] [place], [address] Eosinophils/100 WBC (Bld) 1.3 % Normal 0-5 [facility] Comment on above: Performed By: #### L 500.2500, L100.0100 ####[facility] [address] [place], [address] Erythrocyte distribution width (RBC) [Ratio] 13.6 % Normal 11.6-14.6 [facility] Comment on above: Performed By: #### L 500.2500, L100.0100 ####[facility] [address] [place], [address] Hematocrit (Bld) [Volume fraction] 28.8 % Low 37-47 [facility] Comment on above: Performed By: #### L 500.2500, L100.0100 ####[facility] [address] [place], [address] Hemoglobin (Bld) [Mass/Vol] 8.4 g/dL Low 12.0-15.0 [facility] Comment on above: Performed By: #### L 500.2500, L100.0100 ####[facility] [address] [place], [address] IG% 0.700 Normal 0.0-0.9 [facility] Comment on above: Result Comment: IG% - Immature Granulocytes (promyelocytes, myelocytes andmetamyelocytes) > 1% indicates that a LEFT SHIFT is Present. Performed By: #### L 500.2500, L100.0100 ####[facility] [address] [place], [address] Lymphocytes/100 WBC (Bld) 12.5 % Low 19-41 [facility] Comment on above: Performed By: #### L 500.2500, L100.0100 ####[facility] [address] [place], [address] MCH (RBC) [Entitic mass] 23.9 pg Low 27.0-32.0 [facility] Comment on above: Performed By: #### L 500.2500, L100.0100 ####[facility] [address] [place], [address] MCHC (RBC) [Mass/Vol] 29.2 g/dL Low 32-36 [facility] Comment on above: Performed By: #### L 500.2500, L100.0100 ####[facility] [address] [place], [address] MCV (RBC) [Entitic vol] 81.8 fL Normal 81-99 [facility] Comment on above: Performed By: #### L 500.2500, L100.0100 ####[facility] [address], [address] Monocytes/100 WBC (Bld) 11.0 % High 0-10 [facility] Comment on above: Performed By: #### L 500.2500, L100.0100 ####[facility] [address] [place], [address] Neutrophils/100 WBC (Bld) 74.3 % High 47-70 [facility] Comment on above: Performed By: #### L 500.2500, L100.0100 ####[facility] [address] [place], [address] Nucleated RBC (Bld) [#/Vol] 0 10*3/uL Normal 0-5 [facility] Comment on above: Performed By: #### L 500.2500, L100.0100 ####[facility] [address] [place], [address] Platelet mean volume (Bld) [Entitic vol] 10.5 fL Normal 6.2-12.0 [facility] Comment on above: Performed By: #### L 500.2500, L100.0100 ####[facility] [address] [place], [address] Platelets (Bld) [#/Vol] 315 10*3/uL Normal 150-450 [facility] Comment on above: Performed By: #### L 500.2500, L100.0100 ####[facility] [address] [place], [address] RBC (Bld) [#/Vol] 3.52 10*6/uL Low 4.2-5.4 [facility] Comment on above: Performed By: #### L 500.2500, L100.0100 ####[facility] [address] [place], [address] RDW SD 40.7 fl Normal 35.1-43.9 [facility] Comment on above: Performed By: #### L 500.2500, L100.0100 ####[facility] [address] [place], [address] WBC (Bld) [#/Vol] 12.2 10*3/uL High 4.4-11.0 [facility] Comment on above: Performed By: #### L 500.2500, L100.0100 ####[facility] [address] [place], [address] C[facility]Non [facility] DENIA GONZALEZ ([id number]) 1955 F Date Time Provider Department 01/25/25 YOSEPH FALL [facility] During your visit today, we recorded the following information about you: Judy Bliss RN 01/25/2025 3:27 PM Signed Palma Anguiano from [facility] calls and states that patient has been Admitted to [facility]. Patient is on a Vent in ICU. KAREN Werner Mark D, MD 01/25/2025 3:56 PM Signed Noted Yoseph Fall MD Allergies As of Date: 01/25/2025 (No Known Allergies) Date Reviewed: 01/22/2025 Reviewed by: Gregor Fernandez APRN.ENGINE MECHANIC - Fully Assessed Reason for Visit: Patient [...] directed. Dx: COPD J44.9 - Nebulizer Accessories [facility] Mask and supplies as needed - PULSE OXIMETER [facility] Use as directed to check oxygen saturation level - ammonium lactate (AMLACTIN) 12 % lotion Apply 1 application to affected area as needed for Dry Skin. - losartan (COZAAR) 50 mg tablet Take 0.5 tablets by mouth once daily. - OXYGEN, HOME THERAPY, 2.5 L/min by Nasal Cannula route continuous. Use as directred - Disposable Gloves (DISPOSABLE LATEX-FREE GLOVES) [facility] 1 Box once every month. ICD 10: [...] AN (more content not included)... Normal [facility] CPK Total, Creatine Kinaseon 01-25-2025 CPK TOTAL 77 U/L Normal 24-195 [facility] Comment on above: Order Comment: Comme nts: DC when propofol is d/c'd Performed By: #### L 501.5000, L501.3620 ####[facility] [address] [place], [place], [id number] CTA Chest W/WO Contraston CTA Chest W/WO Contrast Normal [facility] Carbon dioxide, total [Moles /volume] in Central venous bloodOrdered By: Mercy Flores on 01-25-2025 CO2 [Moles/Vol] 44.1 mmol/L High 21.0-32.0 [facility] Comment on above: Performed By: #### L 500.2500, L100.0100 ####[facility] [address] [place], [address] Chest 1 View (Portable)on Chest 1 View (Portable) Normal [facility] Chloride assayOrdered By: Naun Flores on 01-25-2025 Chloride [Moles/Vol] 84 mmol/L Low 98-[address] [facility] Comment on above: Performed By: #### L 500.2500, L100.0100 ####[facility] [address] [place], [address] Consultation - Intensiviston 01-25-2025 Consultation - Hogshead Weigher Normal [facility] Emergency Department Summary on 01-25-2025 Emergency Department Summary Normal [facility] Eosinophil percentageOrdered By: Mercy Flores on 01-25-2025 Eosinophils/100 WBC (Bld) 1.3 % 0-5 [facility] Erythrocyte distribution wid th ratioOrdered By: Mercy Flores on 01-25-2025 Erythrocyte distribution width (RBC) [Ratio] 13.6 % 11.6-14.6 [facility] Erythrocyte distribution wid th standard deviationOrdered By: Mercy Flores on 01-25-2025 Erythrocyte distribution width (RBC) [Ratio] 40.7 fl 35.1-43.9 [facility] Glomerular filtration rate ( GFR) estimation/1.73 sq m using serum, plasma, or whole bOrdered By: Mercy Flores on 01-25-2025 GFR/1.73 sq M.predicted among non-blacks MDRD (S/P/Bld) [Vol rate/Area] 96 mL/min/{1.73_m2} Normal >60 [facility] Comment on above: Result Comment: mL/m in/1.73m2 CKD-EPI Creatinine Equation (2020) Performed By: #### L 500.2500, L100.0100 ####[facility] [address] [place], [place], [address] Gram stainOrdered By: Mercy Flores on 01-25-2025 Microscopic observation Gram stain Nom (Unsp spec) [facility] H AND P Exam - Hospitaliston 01-25-2025 H&P Exam - Hospitalist Normal [place] Hematocrit Auto (Bld) [Volum e fraction]Ordered By: Mercy Flores on 01-25-2025 Hematocrit (Bld) [Volume fraction] 28.8 % Low 37-47 [facility] Hemoglobin measurementOrdere d By: Mercy Flores on 01-25-2025 Hemoglobin (Bld) [Mass/Vol] 8.4 g/dL Low 12.0-15.0 [facility] Hyaline casts LM.LPF (Urine sed) [#/Area]Ordered By: Andriy Guzmán on 01-25-2025 Hyaline casts (Urine sed) [#/Area] 10 /[LPF] 0-5 [facility] Immature granulocytes/100 WB C Auto (Bld)Ordered By: Mercy Flores on 01-25-2025 Immature granulocytes/100 WBC (Bld) 0.700 % 0.0-0.9 [facility] Influenza virus A and B and SARS-CoV-2 (COVID-19) and Respiratory syncytial virus RNAOrdered By: Mercy Flores on 01-25-2025 SARS-CoV-2 (COVID-19) RNA ASPEN+probe Ql (Unsp spec) [facility] Ketones Test strip Ql (U)Ord ered By: Andriy Ramirez on 01-25-2025 Ketones Ql (U) 5 mg/dl High Negative [facility] L501.4021on 01-25-2025 Trop T High Sen 38 ng/L High <=14 [facility] Comment on above: Performed By: #### L 503.7505, L501.4021, L503.6005 ####[facility] [address] [place], [address] Lactic Acidon 01-25-2025 Lactate [Moles/Vol] 1.9 mmol/L Normal 0.0-2.0 [facility] Comment on above: Order Comment: Y Performed By: #### L 503.7505, L501.4021, L503.6005 ####[facility] [address] [place], [address] Legionella Antigen Urineon 1 LEGU Normal [facility] Comment on above: Performed By: #### M 300.4600, M300.4500 ####[facility] [address] [place], [address] Liver Profileon 01-25-2025 Albumin [Mass/Vol] 4.5 g/dL Normal 3.4-4.8 [facility] Comment on above: Performed By: #### L 501.2300, L501.5200, L500.3400 ####[facility] [address] [place], [address] ALK PHOS 57 U/L Normal 35-104 [facility] Comment on above: Performed By: #### L 501.2300, L501.5200, L500.3400 ####[facility] [address] [place], [address] ALT [Catalytic activity/Vol] 20 U/L Normal <=34 [facility] Comment on above: Performed By: #### L 501.2300, L501.5200, L500.3400 ####[facility] [address] [place], [address] AST [Catalytic activity/Vol] 22 U/L Normal <=31 [facility] Comment on above: Performed By: #### L 501.2300, L501.5200, L500.3400 ####[facility] [address] [place], [address] Bilirubin [Mass/Vol] 0.34 mg/dL Normal 0.00-1.[address] [facility] Comment on above: Performed By: #### L 501.2300, L501.5200, L500.3400 ####[facility] [address] [place], [address] Bilirubin.direct [Mass/Vol] 0.17 mg/dL Normal 0.00-0.30 [facility] Comment on above: Performed By: #### L 501.2300, L501.5200, L500.3400 ####[facility] [address] [place], [address] Globulin (S) [Mass/Vol] 2.2 g/dL Normal 2.2-4.2 [facility] Comment on above: Performed By: #### L 501.2300, L501.5200, L500.3400 ####[facility] [address] [place], [address] T PROT 6.7 g/dL Normal 5.9-8.4 [facility] Comment on above: Performed By: #### L 501.2300, L501.5200, L500.3400 ####[facility] [address] [place], [address] M100.678on 01-25-2025 M100.678 Pending SARS-CoV-2 (COVID 19) Negative INFLUENZA A Negative INFLUENZA B Negative RSV PCR Negative Normal [facility] Comment on above: Performed By: #### M 100.678 ####[facility] [address] [place], [address] MCV (mean corpuscular volume ) determinationOrdered By: Mercy Flores on 01-25-2025 MCV (RBC) [Entitic vol] 81.8 fL 81-99 [facility] Magnesiumon 01-25-2025 Magnesium [Mass/Vol] 1.8 mg/dL Normal 1.5-2.[address] [facility] Comment on above: Performed By: #### L 501.2300, L501.5200, L500.3400 ####[facility] [address] [facility] [place], [place], [address] Magnesium measurement (mass/ volume)Ordered By: Alessandro Palma on 01-25-2025 Magnesium (Unsp spec) [Mass/Vol] 1.8 mg/dL 1.5-2.2 [facility] Mean corpuscular hemoglobin (MCH) determinationOrdered By: Mercy Flores on 01-25-2025 MCH (RBC) [Entitic mass] 23.9 pg Low 27.0-32.0 [facility] Measurement, pHOrdered By: Patrick Flores on 01-25-2025 pH (Unsp spec) 7.51 [pH] High 7.35-7.45 [facility] Microbial respiratory cultur eOrdered By: Mercy Flores on 01-25-2025 Microorganism identified Cx Nom (Unsp spec) Pseudomonas aeruginosa Abnormal [facility] Monocyte percentageOrdered B y: Mercy Flores on 01-25-2025 Monocytes/100 WBC (Bld) 11.0 % High 0-10 [facility] Mucus LM Ql (Urine sed)Order ed By: Andriy Guzmán on 01-25-2025 Mucus Ql (Urine sed) 0 SEEN /hpf [facility] Natriuretic peptide.B prohor sharee N-Terminal [Mass/volume] in Serum or PlasmaOrdered By: Mercy Flores on 01-25-2025 Natriuretic peptide.B prohormone N-Terminal [Mass/Vol] 1192 pg/mL High <900 [facility] Neutrophil percentageOrdered By: Mercy Flores on 01-25-2025 Neutrophils/100 WBC (Bld) 74.3 % High 47-70 [facility] Nitrite Test strip Ql (U)Ord ered By: Andriy Guzmán on 01-25-2025 Nitrite Ql (U) Negative Negative [facility] No Panel InformationOrdered By: Mercy Flores on 01-25-2025 ART [facility] L Brach [facility] AC [facility] Adult Vent [facility] 400.0 mL [facility] 16 [facility] 5 [facility] No Panel InformationOrdered By: Alessandro Palma on 01-25-2025 22 U/L <32 [facility] Phosphoruson 01-25-2025 Phosphate [Mass/Vol] 4.0 mg/dL Normal 2.7-4.[address] [facility] Comment on above: Performed By: #### L 501.2300, L501.5200, L500.3400 ####[facility] [address] [place], [address] Platelet countOrdered By: Naun Flores on 01-25-2025 Platelets (Bld) [#/Vol] 315 10*3/uL 150-450 [facility] Potassium measurement (mass/ volume)Ordered By: Mercy Flores on 01-25-2025 Potassium (Unsp spec) [Mass/Vol] 3.5 mmol/L 3.3-5.1 [facility] Pro- Brain NATRIURETIC PEPTI Vicente 01-25-2025 Natriuretic peptide B (Bld) [Mass/Vol] 1192 pg/mL High <=900 [facility] Comment on above: Result Comment: Hear t Failure Unlikely: < 300 pg/mLHeart Failure Likely< 50 Years: > 450 pg/mL50-75 Years: > 900 pg/mL>75 Years: > 1800 pg/mL Performed By: #### L 503.7505, L501.4021, L503.6005 ####[facility] [address] [place], [place], [address] Protein Test strip Ql (U)Ord ered By: Andriy Guzmán on 01-25-2025 Protein Ql (U) 500 mg/dl High Negative [facility] RBC Auto (Bld) [#/Vol]Ordere d By: Mercy Flores on 01-25-2025 RBC (Bld) [#/Vol] 3.52 10*6/uL Low 4.2-5.4 [facility] Serum creatinine measurement (mass/volume)Ordered By: Mercy Flores on 01-25-2025 Creatinine [Mass/Vol] 0.63 mg/dL Low 0.70-1.20 [facility] Comment on above: Performed By: #### L 500.2500, L100.0100 ####[facility] [address] [place], [address] Serum globulin measurementOr dered By: Alessandro Palma on 01-25-2025 Globulin (S) [Mass/Vol] 2.2 g/dL 2.2-4.2 [facility] Serum glucose measurement (m ass/volume)Ordered By: Mercy Flores on 01-25-2025 Glucose [Mass/Vol] 115 mg/dL High 70-99 [facility] Comment on above: Performed By: #### L 500.2500, L100.0100 ####[facility] [address] [place], [address] Serum or plasma alanine retana otransferase (ALT) measurementOrdered By: Alessandro Palma on 01-25-2025 ALT [Catalytic activity/Vol] 20 U/L <35 [facility] Serum or plasma albumin kadi urement (mass/volume)Ordered By: Alessandro Palma on 01-25-2025 Albumin [Mass/Vol] 4.5 g/dL 3.4-4.8 [facility] Serum or plasma alkaline renetta sphatase measurementOrdered By: Alessandro Palma on 01-25-2025 ALP [Catalytic activity/Vol] 57 U/L 35-104 [facility] Serum or plasma calcium kadi urement (mass/volume)Ordered By: Mercy Flores on 01-25-2025 Calcium [Mass/Vol] 9.0 mg/dL Normal 7.6-11.0 [facility] Comment on above: Performed By: #### L 500.2500, L100.0100 ####[facility] [address] [place], [address] Serum or plasma creatine kin ase activityOrdered By: Mercy Flores on 01-25-2025 CK [Catalytic activity/Vol] 77 U/L 24-195 [facility] Serum or plasma urea nitroge n measurement (mass/volume)Ordered By: Mercy Flores on 01-25-2025 Urea nitrogen [Mass/Vol] 31 mg/dL High 4-19 [facility] Comment on above: Performed By: #### L 500.2500, L100.0100 ####[facility] [address] [place], [address] Sodium levelOrdered By: Sandrita Flores on 01-25-2025 Sodium [Moles/Vol] 137 mmol/L Normal 133-145 [facility] Comment on above: Performed By: #### L 500.2500, L100.0100 ####[facility] [address] [place], [address] Squamous epithelial cells de tection in urine sediment by light microscopyOrdered By: Andriy Guzmán on 01-25-2025 Epithelial cells.squamous LM Ql (Urine sed) 0 SEEN /hpf 5-10 [facility] Strep pneumoniae Antig(UR,CS F)on 01-25-2025 STPAG Normal [facility] Comment on above: Performed By: #### M 300.4600, M300.4500 ####[facility] [address] [place], [address] Total carbon dioxide measure mentOrdered By: Mercy Flores on 01-25-2025 CO2 [Moles/Vol] 48 mmol/L [facility] Total proteinOrdered By: Eliza kasandra Louie on 01-25-2025 Protein [Mass/Vol] 6.7 g/dL 5.9-8.4 [facility] Triglycerideson 01-25-2025 Triglyceride [Mass/Vol] 135 mg/dL Normal [facility] Comment on above: Order Comment: Comme nts: DC when propofol is d/c'dDC when propofol is d/c'd Result Comment: The drugs N-Acetylcysteine and Metamizole may falselydepress this assay.Normal range: <150 mg/dLBorderline High: 150-199 mg/dLHigh: 200-499 mg/dLVery High: >500 mg/dL Performed By: #### L 501.5000, L501.3620 ####[facility] [address] [place], [address] Troponin T HS 2 HRon 025 Trop T High Sen 31 ng/L High <=14 [facility] Comment on above: Performed By: #### L 499.0042 ####[facility] [address] [place], [address] Troponin T HS 4 HRon 025 Trop T High Sen Normal <=14 [facility] Comment on above: Result Comment: Canc elled via OM: Order cancelled - Patient discharged Performed By: #### L 499.0043 ####[facility] [address] [place], [address] Troponin T.cardiac [Mass/vol ume] in Serum or Plasma by High sensitivity methodOrdered By: Mercy Flores on 01-25-2025 Troponin T.cardiac High sensitivity method [Mass/Vol] 31 ng/L High <14 [facility] Troponin T.cardiac High sensitivity method [Mass/Vol] 38 ng/L High <14 [facility] Urinalysis, Completeon 01-25 BACTERIA 3+ /hpf Normal None Seen [facility] Comment on above: Order Comment: COLLE CTOR TO SPECIFY Performed By: #### L 400.0001 ####[facility] [address] [place], [address] CAST,HYALINE 10-25 SEEN Normal 0-5 [facility] Comment on above: Order Comment: COLLE CTOR TO SPECIFY Performed By: #### L 400.0001 ####[facility] [address] [place], [address] RBC 0-5 SEEN Normal 0-5 [facility] Comment on above: Order Comment: CHRISTIANNE CTOR TO SPECIFY Performed By: #### L 400.0001 ####[facility] [address] [place], [address] WBC 0-5 SEEN Normal 0-5 [facility] Comment on above: Order Comment: CHRISTIANNE CTOR TO SPECIFY Performed By: #### L 400.0001 ####[facility] [address] [place], [address] EPI,SQUAMOUS 0 SEEN Normal 5-10 [facility] Comment on above: Order Comment: CHRISTIANNE CTOR TO SPECIFY Performed By: #### L 400.0001 ####[facility] [address] [place], [address] Mucus Ql (Urine sed) 0 SEEN Normal [facility] Comment on above: Order Comment: CHRISTIANNE CTOR TO SPECIFY Performed By: #### L 400.0001 ####[facility] [address] [place], [address] Urine Legionella pneumophila antigen detectionOrdered By: Alessandro Palma on 01-25-2025 L. pneumophila Ag Ql (U) [facility] Urine clarityOrdered By: Spencer on 01-25-2025 Clarity (U) Sl. Cloudy Clear [facility] Urine color determinationOrd ered By: Andriy Guzmán on 01-25-2025 Color (U) Yellow Yellow [facility] Urine glucose detectionOrder ed By: Andriy Guzmán on 01-25-2025 Glucose Ql (U) Normal mg/dl Normal [facility] Urine leukocyte esterase det ection by dipstickOrdered By: Andriy Guzmán on 01-25-2025 Leukocyte esterase Test strip Ql (U) Negative Negative [facility] Urine pHOrdered By: Andriy cooper on 01-25-2025 pH (U) 6.0 [pH] 5.0 - 8.0 [facility] Urine sediment bacteria coun t by microscopy (number/high power field)Ordered By: Andriy Guzmán on 01-25-2025 Bacteria LM.HPF (Urine sed) [#/Area] 3 /[HPF] None Seen [facility] Urine specific gravity measu rementOrdered By: Andriy Guzmán on 01-25-2025 Specific gravity (U) [Rel density] 1.025 1.002-1.030 [facility] Urine urobilinogen measureme ntOrdered By: Andriy Guzmán on 01-25-2025 Urobilinogen Ql (U) Normal mg/dl Normal [facility] White blood cell (WBC) count Ordered By: Mercy Flores on 01-25-2025 WBC (Bld) [#/Vol] 12.2 10*3/uL High 4.4-11.0 [facility] White blood cell countOrdere d By: Andriy Guzmán on 01-25-2025 White blood cell count 0-5 SEEN /hpf 0-5 [facility] 36on 01-23-2025 36 Spoke with patient and she scheduled a dental appt on January 30 at [facility], will plan to follow-up after that Normal [facility] DENIA GONZALEZ ([id number]) 1955 F Date Time Provider Department 01/23/25 YOSEPH FALL During your visit today, we recorded the following information about you: Martínez Louie RN 01/23/2025 1:12 PM Signed Rafa- [facility]- reporting SN POC: will extend SN to 1 x week for 3 weeks. No call back needed. FYI: pt reports pain level at 20/10, pt is anxious, pt has an appt with palliative care next week for assessment. Allergies As of Date: 01/23/2025 (No Known Allergies) Date Reviewed: 01/22/2025 Reviewed by: Gregor Fernandez APRN.ENGINE MECHANIC - Fully Assessed Reason for Visit: [facility] SN POC [Other] Prescriptions as of [...] directed. Dx: COPD J44.9 - Nebulizer Accessories [facility] Mask and supplies as needed - PULSE OXIMETER [facility] Use as directed to check oxygen saturation level - ammonium lactate (AMLACTIN) 12 % lotion Apply 1 application to affected area as needed for Dry Skin. - losartan (COZAAR) 50 mg tablet Take 0.5 tablets by mouth once daily. - OXYGEN, HOME THERAPY, 2.5 L/min by Nasal Cannula route continuous. Use as directred - Disposable Gloves (DISPOSABLE LATEX-FREE GLOVES) [facility] 1 Box once every month. ICD 10: [...] Stage 3 severe COPD by GOLD classification ([facility]*09/28/2005 Asthma [J45.909] GENERAL OSTEOARTHROSIS [M15.9] Essential hypertension, benign (more content not included)... [facility] DEN[facility]ON[facility]ALE[facility] ([id number]) 1955 F Date Time Provider Department 01/23/25 [...] birthdate. Requesting response back: call on cell [phone] Joceline Romero January 23, 2025 Mikayla Broussard RN 01/23/2025 11:21 AM Signed Care Coordination Triage Note Cancer [place] Situation: Patient reports Pain--Back or Spine , [...] Dr. Fall to explore referral to a size painter. This patient does not currently meet [...] for assuming pain management. Mikayla Broussard RNCC Girl Friday January 23, 2025 11:17 AM Allergies As [...] - o (more content not included)... [facility] (FAMPWS) CARLOSDENIA ([id number]) 1955 F Date Time Provider Department 01/22/25 [facility] During your visit today, we recorded the following information about you: Brynn Watson LPN 01/22/2025 10:09 AM Signed Breanna from [facility] [employer] calling patient home health aide called her asking for an order for standard Cane to be faxed to [employer]. Fax number is [phone]. Pending order. Please advise Sukhi Marrero RN [...] medicine. See below for request for cane. KRAEN Barney Mark D, MD 01/22/2025 2:53 PM Signed OK for cane; order printed OK to discontinue the tid prn hydroxyzine order I am not able to order Xanax since she is on hydrocodone MD Zaki Chopra Kathryn, MA 01/22/2025 5:32 PM Addendum Message left for Sinan to call back. Order for cane faxed to [employer]. Magalie Anguiano RN 01/22/2025 7:51 PM Signed Pt called and is notified of providers message and instructions. She voices understanding. Magalie Anguiano RN Allergies As of Date: 01/22/2025 (No Known Allergies) Date Reviewed: 11/22/2024 Reviewed by: Gregor Fernandez APRN.ENGINE MECHANIC - Fully Assessed Reason for Visit: Orders [681] Primary Visit Diagnosis:Generalized osteoarthrosis, involving multiple sites [M15.9] Other Visit Diagnosis:Chronic low back pain with sciatica, sciatica laterality unspecified, unspecified back pain laterality [M54.40, G89.29] Order(s):DME SUPPLY OR ACCESSORY, NOS [[id number]] Order #: [id number] Prescriptions as of 01/22/2025 - doxycycline hyclate [...] 1 Lozenge (more content not included)... Normal [facility] Telephone (INTMWS) DENIA GONZALEZ ([id number]) 1955 F Date Time Provider Department 01/22/25 YOSEPH FALL During your visit today, we recorded the following information about you: Ban Villafana LPN 01/22/2025 2:40 PM Signed Covermymeds PA rec'. This was completed via my chart. Prior authorization approved Payer: [employer] [phone] Note from payer: CaseId:[id number];Stat us:Approved;Review Type:Prior Auth;Coverage Start Date:12/23/2024;Cover age End [...] to its destination. To be filled at: [facility] [address] [place] [address] [facility] - [phone] Pharmacy notified. Allergies As of Date: 01/22/2025 (No Known Allergies) Date Reviewed: 11/22/2024 Reviewed by: Gregor Fernandez APRN.ENGINE MECHANIC - Fully Assessed Reason for Visit: Insurance [...] as needed. - Nebulizer and Compressor For [facility] Use as directed. Dx: COPD J44.9 - Nebulizer Accessories [facility] Mask and supplies as needed - PULSE OXIMETER [facility] Use as directed to check oxygen saturation level - ammonium lactate (AMLACTIN) 12 % lotion Apply 1 application to affected area as needed for Dry Skin. - losartan (COZAAR) 50 mg tablet Take 0.5 tablets by mouth once daily. - OXYGEN, HOME THERAPY, 2.5 L/min by Nasal Cannula route continuous. Use as directred - Disposable Gloves (DISPOSABLE LATEX-FREE GLOVES) [facility] 1 Box once every month. ICD 10: M15.9, J44.9, M54.40 - Incontinence Pad, Liner, Disp (POISE PADS) pads Use pads as directed. Dx: N39.46 - COMPOUNDED PRESCRIPTION BLOOD PRESSURE CUFF FOR HOME USE. DX: HYPERTENSION I10. AUTO (more content not included)... Normal [facility] 01-18-2025 36 PC to patient. LMOM to call office back. Normal [place] [id number] 36 Spoke with family member on phone, patient currently napping. Family member will have patient call valve clinic back to discuss Normal [facility] DEN[facility] GON[facility]ALE[facility] ([id number]) 1955 F Date Time Provider Department 01/17/25 YOSEPH FALL [facility] During your visit today, we recorded the following information about you: Martínez Louie, RN 01/17/2025 9:21 AM Signed [facility]- reports pt lives primarily on the first floor of her home without access to bathroom. Asking pcp to send order to [facility] for a Bedside Commode. Pended order. Yoseph Fall MD 01/18/2025 3:19 PM Signed Order printed; OK to fax to [facility] as requested MD Anaya Chopra Helen E, LPN 01/18/2025 3:58 PM Signed Order faxed to [facility]. Yasmin Julien LPN Allergies As of Date: 01/17/2025 (No Known Allergies) Date Reviewed: 11/22/2024 Reviewed by: Gregor Fernandez APRN.ENGINE MECHANIC - Fully Assessed Reason for Visit: Bedside Commode order [Other] Primary Visit Diagnosis:Stage 3 severe COPD by GOLD classification (HCC) [J44.9] Other Visit Diagnoses:Generalized osteoarthrosis, involving multiple sites [M15.9] Chronic respiratory failure with hypoxia (HCC) [J96.11] Obstructive chronic bronchitis with exacerbation (HCC) [J44.1] Order(s):COMMODE CHAIR, STATIONARY [[id number]] Order #: [id number] Prescriptions as of 01/18/2025 - doxycycline hyclate [...] directed. Dx: COPD J44.9 - Nebulizer Accessories [facility] Mask and supplies as needed - PULSE OXIMETER [facility] Use as directed to check oxygen saturation level - ammonium lactate (AMLACTIN) 12 % lotion Apply 1 application to affected area as needed for Dry Skin. - losartan (COZAAR) 50 mg tablet Take 0.5 tablets by mouth once daily. - OXYGEN, HOME THERAPY, 2.5 L/min by Nasal Cannula route continuous. Use as directred - Disposable Gloves (DISPOSABLE LATEX-FREE GLOVES) [facility] 1 Box once every month. ICD 10: M15.9, J44.9, M54.40 - Incontinence Pad, Liner, Disp (POISE PADS) pads Use pads as directed. Dx: N39.46 - COMPOUNDED PRESCRIPTION BLOOD PRESSURE CUFF FOR HOME USE. DX: HYPERTENSION (more content not included)... Normal [facility] 01-16-2025 [facility] Telephone (FAMWS) DENIA GONZALEZ ([id number]) 1955 F Date Time Provider Department 01/16[facility] During your visit today, we recorded the following information about you: Judy Blsis RN 01/16/2025 12:56 PM Signed Rafa from [facility] calls and states that patient is [...] left a detailed voicemail notifying Rafa from [facility] of providers message. Clinic phone number was left in case he had any questions. Magalie Anguiano RN Allergies As of Date: 01/16/2025 (No Known Allergies) Date Reviewed: 11/22/2024 Reviewed by: Gregor Fernandez APRN.ENGINE MECHANIC - Fully Assessed Reason for Visit: Patient [...] suppl (more content not included)... Normal [facility] 36on 01-15-2025 36 Labs scanned in [facility] Anion gap in Serum or Plasma Ordered By: Zaria Shea on 01-12-2025 Anion gap [Moles/Vol] 10 mmol/L 5-15 [facility] BUN/creatinine ratioOrdered By: Zaria Shea on 01-12-2025 Urea nitrogen/Creatinine [Mass ratio] 24.6 mg/mg High - [facility] Basic Metabolic Profile (BMP )on 01-12-2025 BUN/CRE 24.6 RATIO High - [facility] Comment on above: Performed By: #### L 500.2500 ####[facility] [address] [place], [address] Calcium [Mass/Vol] 8.6 mg/dL Normal 7.6-11.0 [facility] Comment on above: Performed By: #### L 500.2500 ####[facility] [address] [place], [address] Chloride [Moles/Vol] 90 mmol/L Low 98-[address] [facility] Comment on above: Performed By: #### L 500.2500 ####[facility] [address] [place], [address] CO2 [Moles/Vol] 40.6 mmol/L High 21.0-32.0 [facility] Comment on above: Performed By: #### L 500.2500 ####[facility] [address] [place], [address] Creatinine [Mass/Vol] 0.59 mg/dL Low 0.70-1.20 [facility] Comment on above: Performed By: #### L 500.2500 ####[facility] [address] [place], [address] GAP 10 Normal 5-15 [facility] Comment on above: Performed By: #### L 500.2500 ####[facility] [address] [place], [address] GFR/1.73 sq M.predicted among non-blacks MDRD (S/P/Bld) [Vol rate/Area] 98 mL/min/{1.73_m2} Normal >60 [facility] Comment on above: Result Comment: mL/m in/1.73m2 CKD-EPI Creatinine Equation (2020) Performed By: #### L 500.2500 ####[facility] [address] [place], [address] Glucose [Mass/Vol] 87 mg/dL Normal 70-99 [facility] Comment on above: Performed By: #### L 500.2500 ####[facility] [address] [place], [address] Potassium [Moles/Vol] 3.8 mmol/L Normal 3.3-5.1 [facility] Comment on above: Performed By: #### L 500.2500 ####[facility] [address] [place], [address] Sodium [Moles/Vol] 140 mmol/L Normal 133-145 [facility] Comment on above: Performed By: #### L 500.2500 ####[facility] [address] [place], [address] Urea nitrogen [Mass/Vol] 14 mg/dL Normal 4- [facility] Comment on above: Performed By: #### L 500.2500 ####[facility] [address] [place], [address] CNPNon 01-12-2025 CNPN Telephone (FAMPWS) DENIA GONZALEZ ([id number]) 1955 F Date Time Provider Department 01/12/25 YOSEPH FALL [facility] During your visit today, we recorded the following information about you: Padmini Abbott, KAREN 01/12/2025 11:00 AM Signed Fred with [facility] calling to report the followin) Patient had recent COPD exacerbation. Is currently coughing up rust colored sputum that pt believes is blood. Pt was off Eliquis recently for a heart cath procedure but has recently resumed it. Reports he had to draw a BMP on pt today for [facility] and states that if PCP wishes to add CBC, to let him know and he can have this added on today. 2) Since the recent addition of hydroxyzine to pt's medication regimen, this caused a [id number] alert to be received by them, between [...] place lab so we can fax to [facility] JOS Garcia Mark D, MD 01/12/2025 5:08 PM Signed Order filed MD Kim Chopra Elizabeth, MA 01/12/2025 5:27 PM Signed Faxed Michelle Alvarez MA Allergies As of Date: 01/12/2025 (No Known Allergies) Date Reviewed: 11/22/2024 Reviewed by: Gregor Fernandez APRN.ENGINE MECHANIC - Fully Assessed Reason for Visit: [facility] Update [Other] Primary Visit Diagnosis:Essential hypertension, benign [I10] Order(s):COMPLETE BLOOD COUNT AND DIFFERENTIAL [SQCBCDIF] Order #: [id number] FUTURE Prescriptions as of 01/12/2025 - furosemide [...] directed. Dx: COPD J44.9 - Nebulizer Accessories [facility] Mask and supplies as needed - PULSE OXIMETER [facility] Use as directed to check oxygen saturation level - ammonium lactate (AMLACTIN) 12 % lotion Apply (more content not included)... Normal [facility] Carbon dioxide, total [Moles /volume] in Central venous bloodOrdered By: Zaria Shea on 01-12-2025 CO2 [Moles/Vol] 40.6 mmol/L High 21.0-32.0 [facility] Chloride assayOrdered By: Kuldip Junior on 01-12-2025 Chloride [Moles/Vol] 90 mmol/L Low 98-[address] [facility] Glomerular filtration rate ( GFR) estimation/1.73 sq m using serum, plasma, or whole bOrdered By: Zaria Shea on 01-12-2025 GFR/1.73 sq M.predicted among non-blacks MDRD (S/P/Bld) [Vol rate/Area] 98 mL/min/{1.73_m2} >60 [facility] Potassium measurement (mass/ volume)Ordered By: Zaria Shea on 01-12-2025 Potassium (Unsp spec) [Mass/Vol] 3.8 mmol/L 3.3-5.1 [facility] Serum creatinine measurement (mass/volume)Ordered By: Zaria Shea on 01-12-2025 Creatinine [Mass/Vol] 0.59 mg/dL Low 0.70-1.20 [facility] Serum glucose measurement (m ass/volume)Ordered By: Zaria Shea on 01-12-2025 Glucose [Mass/Vol] 87 mg/dL 70-99 [facility] Serum or plasma calcium kadi urement (mass/volume)Ordered By: Zaria Shea on 01-12-2025 Calcium [Mass/Vol] 8.6 mg/dL 7.6-11.0 [facility] Serum or plasma urea nitroge n measurement (mass/volume)Ordered By: Zaria Shea on 01-12-2025 Urea nitrogen [Mass/Vol] 14 mg/dL 4-19 [facility] Sodium levelOrdered By: Cedric Shea on 01-12-2025 Sodium [Moles/Vol] 140 mmol/L 133-145 [facility] 36on 01-09-2025 36 Patient is going to have her home nurse draw the BMP on Wednesday01/12/25. I faxed order [phone] and confirmed. Normal [facility] CNPNon 01-09-2025 CNPN Telephone (FAMPWS) DENIA GONZALEZ ([id number]) 1955 F Date Time Provider Department 01/09/25 [facility] During your visit today, we recorded [...] with reply to response to #1 above. [phone] KAREN Robledo Krystle, RN 01/09/2025 4:44 PM Signed Breanna with [facility] [employer] calls to give update on anxiety. Breanna [...] Date Reviewed: 11/22/2024 Reviewed by: Gregor Fernandez APRN.ENGINE MECHANIC - Fully Assessed Reason for Visit: Medication [...] gum (more content not included)... Normal [facility] 36on 01-08-2025 36 Spoke with patient, she has BMP lab order and will go to [facility] this week to complete. Patient has not seen a dentist in a number of years, does not have dental insurance. Provided patient number to [facility] in [place], [place] [facility] [phone] to schedule next available appt. Advised patient to call office back with appt date/time, can always see [facility] clinic for expedited work-up. Will schedule CTA and TAVR once dental plan known. [facility] CNPNon 01-08-2025 CNPN Telephone (FAMPWS) DENIA GONZALEZ ([id number]) 1955 F Date Time Provider Department 01/08/25 [facility]PH [facility]ALL [facility] During your visit today, we recorded the following information about you: Judy Bliss RN 01/08/2025 10:06 AM Signed Edda from [facility] calls and states that patient was supposed to have PT evaluation last week but was unable to do. Edda asking for a delay in care order for PT. Please review and advise, KAREN Werner Jesse, APRN.[facility] 01/08/2025 11:01 AM Signed Okay for delay in care. Nelson Robert APRN.Martha Paulino MA 01/08/2025 4:09 PM Signed Called and received Edda's identifiable and secure VM. LM with information below from Provider, if questions to contact the office. Martha Baca MA Allergies As of Date: 01/08/2025 (No Known Allergies) Date Reviewed: 11/22/2024 Reviewed by: Gregor Fernandez APRN.[facility] - Fully Assessed Reason for Visit: Delay [...] directed. Dx: COPD J44.9 - Nebulizer Accessories [facility] Mask and supplies as needed - PULSE OXIMETER [facility] Use as directed to check oxygen saturation level - ammonium lactate (AMLACTIN) 12 % lotion Apply 1 application to affected area as needed for Dry Skin. - losartan (COZAAR) 50 mg tablet Take 0.5 tablets by mouth once daily. - OXYGEN, HOME THERAPY, 2.5 L/min by Nasal Cannula route continuous. Use as directred - Disposable Gloves (DISPOSABLE LATEX-FREE GLOVES) [facility] 1 Box once every month. ICD 10: [...] benign (more content not included)... Normal [facility] Basic Metabolic Profile (BMP )on 01-06-2025 BUN Normal - [facility] Comment on above: Result Comment: Canc elled via OM: Order cancelled - Patient discharged Performed By: #### L 100.0100, L500.2500 ####[facility] [address] [place], [address] BUN/CRE Normal 10-20 [facility] Comment on above: Result Comment: Canc elled via OM: Order cancelled - Patient discharged Performed By: #### L 100.0100, L500.2500 ####[facility] [address] [place], [address] Calcium Normal 7.6-11.0 [facility] Comment on above: Result Comment: Canc elled via OM: Order cancelled - Patient discharged Performed By: #### L 100.0100, L500.2500 ####[facility] [address] [place], [address] CL Normal 98-108 [facility] Comment on above: Result Comment: Canc elled via OM: Order cancelled - Patient discharged Performed By: #### L 100.0100, L500.2500 ####[facility] [address] [place], [address] CO2 Normal 21.0-32.0 [facility] Comment on above: Result Comment: Canc elled via OM: Order cancelled - Patient discharged Performed By: #### L 100.0100, L500.2500 ####[facility] [address] [place], [address] CREAT,SERUM Normal 0.70-1.20 [facility] Comment on above: Result Comment: Canc elled via OM: Order cancelled - Patient discharged Performed By: #### L 100.0100, L500.2500 ####[facility] [address] [place], [address] eGFR Normal >60 [facility] Comment on above: Result Comment: Canc elled via OM: Order cancelled - Patient discharged Performed By: #### L 100.0100, L500.2500 ####[facility] [address] [place], [address] GAP Normal 5-15 [facility] Comment on above: Result Comment: Canc elled via OM: Order cancelled - Patient discharged Performed By: #### L 100.0100, L500.2500 ####[facility] [address] [place], [address] GLU Normal 70-99 [facility] Comment on above: Result Comment: Canc elled via OM: Order cancelled - Patient discharged Performed By: #### L 100.0100, L500.2500 ####[facility] [address] [place], [address] Potassium Normal 3.3-5.1 [facility] Comment on above: Result Comment: Canc elled via OM: Order cancelled - Patient discharged Performed By: #### L 100.0100, L500.2500 ####[facility] [address] [place], [address] Basic Metabolic Profile (BMP) Normal 133-145 [facility] Comment on above: Result Comment: Canc elled via OM: Order cancelled - Patient discharged Performed By: #### L 100.0100, L500.2500 ####[facility] [address] [place], [address] CBC W/Diff, Automatedon - Absolute Neut Normal 2.0-7.7 [facility] Comment on above: Result Comment: Canc elled via OM: Order cancelled - Patient discharged Performed By: #### L 100.0100, L500.2500 ####[facility] [address] [place], [address] HCT Normal 37-47 [facility] Comment on above: Result Comment: Canc elled via OM: Order cancelled - Patient discharged Performed By: #### L 100.0100, L500.2500 ####[facility] [address] [place], [address] HGB Normal 12.0-15.0 [facility] Comment on above: Result Comment: Canc elled via OM: Order cancelled - Patient discharged Performed By: #### L 100.0100, L500.2500 ####[facility] [address] [place], [address] MCH Normal 27.0-32.0 [facility] Comment on above: Result Comment: Canc elled via OM: Order cancelled - Patient discharged Performed By: #### L 100.0100, L500.2500 ####[facility] [address] [place], [address] MCHC Normal 32-36 [facility] Comment on above: Result Comment: Canc elled via OM: Order cancelled - Patient discharged Performed By: #### L 100.0100, L500.2500 ####[facility] [address] [place], [address] MCV Normal 81-99 [facility] Comment on above: Result Comment: Canc elled via OM: Order cancelled - Patient discharged Performed By: #### L 100.0100, L500.2500 ####[facility] [address] [place], [address] NEUT% Normal 47-70 [facility] Comment on above: Result Comment: Canc elled via OM: Order cancelled - Patient discharged Performed By: #### L 100.0100, L500.2500 ####[facility] [address] [place], [address] PLT Normal 150-450 [facility] Comment on above: Result Comment: Canc elled via OM: Order cancelled - Patient discharged Performed By: #### L 100.0100, L500.2500 ####[facility] [address] [place], [address] RBC Normal 4.2-5.4 [facility] Comment on above: Result Comment: Canc elled via OM: Order cancelled - Patient discharged Performed By: #### L 100.0100, L500.2500 ####[facility] [address] [place], [address] RDW CV Normal 11.6-14.6 [facility] Comment on above: Result Comment: Canc elled via OM: Order cancelled - Patient discharged Performed By: #### L 100.0100, L500.2500 ####[facility] [address] [facility] [address] RDW SD Normal 35.1-43.9 [facility] Comment on above: Result Comment: Canc elled via OM: Order cancelled - Patient discharged Performed By: #### L 100.0100, L500.2500 ####[facility] [address] [facility] [address] WBC Normal 4.4-11.0 [facility] Comment on above: Result Comment: Canc elled via OM: Order cancelled - Patient discharged Performed By: #### L 100.0100, L500.2500 ####[facility] [address] [place], [address] 36on 01-05-2025 36 S/p cath with minima l CAD. Plan CTA and TAVR. Pls advise to see dentist prior to valve intervention. Order placed for CTA and TAVR. Given req for BMP. mm Normal [facility] Anesthesia Noteon 01-05-2025 Anesthesia Note Sedation Plan [...] proceed to administer sedation as planned. Normal [facility] Basic Metabolic Profile (BMP )on 01-05-2025 BUN Normal 4-19 [facility] Comment on above: Result Comment: Canc elled via OM: Order cancelled - Patient discharged Performed By: #### L 100.0100, L500.2500 ####[facility] [address] [place], [address] BUN/CRE Normal 10-20 [facility] Comment on above: Result Comment: Canc elled via OM: Order cancelled - Patient discharged Performed By: #### L 100.0100, L500.2500 ####[facility] [address] [place], [address] Calcium Normal 7.6-11.0 [facility] Comment on above: Result Comment: Canc elled via OM: Order cancelled - Patient discharged Performed By: #### L 100.0100, L500.2500 ####[facility] [address] [place], [address] CL Normal 98-108 [facility] Comment on above: Result Comment: Canc elled via OM: Order cancelled - Patient discharged Performed By: #### L 100.0100, L500.2500 ####[facility] [address] [place], [address] CO2 Normal 21.0-32.0 [facility] Comment on above: Result Comment: Canc elled via OM: Order cancelled - Patient discharged Performed By: #### L 100.0100, L500.2500 ####[facility] [address] [place], [address] CREAT,SERUM Normal 0.70-1.20 [facility] Comment on above: Result Comment: Canc elled via OM: Order cancelled - Patient discharged Performed By: #### L 100.0100, L500.2500 ####[facility] [address] [place], [address] eGFR Normal >60 [facility] Comment on above: Result Comment: Canc elled via OM: Order cancelled - Patient discharged Performed By: #### L 100.0100, L500.2500 ####[facility] [address] [place], [address] GAP Normal 5-15 [facility] Comment on above: Result Comment: Canc elled via OM: Order cancelled - Patient discharged Performed By: #### L 100.0100, L500.2500 ####[facility] [address] [place], [address] GLU Normal 70-99 [facility] Comment on above: Result Comment: Canc elled via OM: Order cancelled - Patient discharged Performed By: #### L 100.0100, L500.2500 ####[facility] [address] [place], [address] Potassium Normal 3.3-5.1 [facility] Comment on above: Result Comment: Canc elled via OM: Order cancelled - Patient discharged Performed By: #### L 100.0100, L500.2500 ####[facility] [address] [place], [address] Basic Metabolic Profile (BMP) Normal 133-145 [facility] Comment on above: Result Comment: Canc elled via OM: Order cancelled - Patient discharged Performed By: #### L 100.0100, L500.2500 ####[facility] [address] [place], [address] CBC W/Diff, Automatedon 09-1 Absolute Neut Normal 2.0-7.7 [facility] Comment on above: Result Comment: Canc elled via OM: Order cancelled - Patient discharged Performed By: #### L 100.0100, L500.2500 ####[facility] [address] [place], [address] HCT Normal 37-47 [facility] Comment on above: Result Comment: Canc elled via OM: Order cancelled - Patient discharged Performed By: #### L 100.0100, L500.2500 ####[facility] [address] [place], [address] HGB Normal 12.0-15.0 [facility] Comment on above: Result Comment: Canc elled via OM: Order cancelled - Patient discharged Performed By: #### L 100.0100, L500.2500 ####[facility] [address] [place], [address] MCH Normal 27.0-32.0 [facility] Comment on above: Result Comment: Canc elled via OM: Order cancelled - Patient discharged Performed By: #### L 100.0100, L500.2500 ####[facility] [address] [place], [address] MCHC Normal 32-36 [facility] Comment on above: Result Comment: Canc elled via OM: Order cancelled - Patient discharged Performed By: #### L 100.0100, L500.2500 ####[facility] [address] [place], [address] MCV Normal 81-99 [facility] Comment on above: Result Comment: Canc elled via OM: Order cancelled - Patient discharged Performed By: #### L 100.0100, L500.2500 ####[facility] [address] [place], [address] NEUT% Normal 47-70 [facility] Comment on above: Result Comment: Canc elled via OM: Order cancelled - Patient discharged Performed By: #### L 100.0100, L500.2500 ####[facility] [address] [place], [address] PLT Normal 150-450 [facility] Comment on above: Result Comment: Canc elled via OM: Order cancelled - Patient discharged Performed By: #### L 100.0100, L500.2500 ####[facility] [address] [place], [address] RBC Normal 4.2-5.4 [facility] Comment on above: Result Comment: Canc elled via OM: Order cancelled - Patient discharged Performed By: #### L 100.0100, L500.2500 ####[facility] [address] [place], [address] RDW CV Normal 11.6-14.6 [facility] Comment on above: Result Comment: Canc elled via OM: Order cancelled - Patient discharged Performed By: #### L 100.0100, L500.2500 ####[facility] [address] [place], [address] RDW SD Normal 35.1-43.9 [facility] Comment on above: Result Comment: Canc elled via OM: Order cancelled - Patient discharged Performed By: #### L 100.0100, L500.2500 ####[facility] [address] [place], [address] WBC Normal 4.4-11.0 [facility] Comment on above: Result Comment: Canc elled via OM: Order cancelled - Patient discharged Performed By: #### L 100.0100, L500.2500 ####[facility] [address] [place], [address] Basic Metabolic Profile (BMP )on 01-04-2025 BUN Normal 4-19 [facility] Comment on above: Result Comment: Canc elled via OM: Order cancelled - Patient discharged Performed By: #### L 100.0100, L500.2500 ####[facility] [address] [place], [address] BUN/CRE Normal 10-20 [facility] Comment on above: Result Comment: Canc elled via OM: Order cancelled - Patient discharged Performed By: #### L 100.0100, L500.2500 ####[facility] [address] [place], [address] Calcium Normal 7.6-11.0 [facility] Comment on above: Result Comment: Canc elled via OM: Order cancelled - Patient discharged Performed By: #### L 100.0100, L500.2500 ####[facility] [address] [place], [address] CL Normal 98-108 [facility] Comment on above: Result Comment: Canc elled via OM: Order cancelled - Patient discharged Performed By: #### L 100.0100, L500.2500 ####[facility] [address] [place], [address] CO2 Normal 21.0-32.0 [facility] Comment on above: Result Comment: Canc elled via OM: Order cancelled - Patient discharged Performed By: #### L 100.0100, L500.2500 ####[facility] [address] [place], [address] CREAT,SERUM Normal 0.70-1.20 [facility] Comment on above: Result Comment: Canc elled via OM: Order cancelled - Patient discharged Performed By: #### L 100.0100, L500.2500 ####[facility] [address] [place], [address] eGFR Normal >60 [facility] Comment on above: Result Comment: Canc elled via OM: Order cancelled - Patient discharged Performed By: #### L 100.0100, L500.2500 ####[facility] [address] [place], [address] GAP Normal 5-15 [facility] Comment on above: Result Comment: Canc elled via OM: Order cancelled - Patient discharged Performed By: #### L 100.0100, L500.2500 ####[facility] [address] [place], [address] GLU Normal 70-99 [facility] Comment on above: Result Comment: Canc elled via OM: Order cancelled - Patient discharged Performed By: #### L 100.0100, L500.2500 ####[facility] [address] [place], [address] Potassium Normal 3.3-5.1 [facility] Comment on above: Result Comment: Canc elled via OM: Order cancelled - Patient discharged Performed By: #### L 100.0100, L500.2500 ####[facility] [address] [place], [address] Basic Metabolic Profile (BMP) Normal 133-145 [facility] Comment on above: Result Comment: Canc elled via OM: Order cancelled - Patient discharged Performed By: #### L 100.0100, L500.2500 ####[facility] [address] [place], [address] CBC W/Diff, Automatedon - Absolute Neut Normal 2.0-7.7 [facility] Comment on above: Result Comment: Canc elled via OM: Order cancelled - Patient discharged Performed By: #### L 100.0100, L500.2500 ####[facility] [address] [place], [address] HCT Normal 37-47 [facility] Comment on above: Result Comment: Canc elled via OM: Order cancelled - Patient discharged Performed By: #### L 100.0100, L500.2500 ####[facility] [address] [place], [address] HGB Normal 12.0-15.0 [facility] Comment on above: Result Comment: Canc elled via OM: Order cancelled - Patient discharged Performed By: #### L 100.0100, L500.2500 ####[facility] [address] [place], [address] MCH Normal 27.0-32.0 [facility] Comment on above: Result Comment: Canc elled via OM: Order cancelled - Patient discharged Performed By: #### L 100.0100, L500.2500 ####[facility] [address] [place], [address] MCHC Normal 32-36 [facility] Comment on above: Result Comment: Canc elled via OM: Order cancelled - Patient discharged Performed By: #### L 100.0100, L500.2500 ####[facility] [address] [place], [address] MCV Normal 81-99 [facility] Comment on above: Result Comment: Canc elled via OM: Order cancelled - Patient discharged Performed By: #### L 100.0100, L500.2500 ####[facility] [address] [place], [address] NEUT% Normal 47-70 [facility] Comment on above: Result Comment: Canc elled via OM: Order cancelled - Patient discharged Performed By: #### L 100.0100, L500.2500 ####[facility] [address] [place], [address] PLT Normal 150-450 [facility] Comment on above: Result Comment: Canc elled via OM: Order cancelled - Patient discharged Performed By: #### L 100.0100, L500.2500 ####[facility] [address] [place], [address] RBC Normal 4.2-5.4 [facility] Comment on above: Result Comment: Canc elled via OM: Order cancelled - Patient discharged Performed By: #### L 100.0100, L500.2500 ####[facility] [address] [place], [address] RDW CV Normal 11.6-14.6 [facility] Comment on above: Result Comment: Canc elled via OM: Order cancelled - Patient discharged Performed By: #### L 100.0100, L500.2500 ####[facility] [address] [place], [address] RDW SD Normal 35.1-43.9 [facility] Comment on above: Result Comment: Canc elled via OM: Order cancelled - Patient discharged Performed By: #### L 100.0100, L500.2500 ####[facility] [address] [place], [address] WBC Normal 4.4-11.0 [facility] Comment on above: Result Comment: Canc elled via OM: Order cancelled - Patient discharged Performed By: #### L 100.0100, L500.2500 ####[facility] [address] [place], [address] 36on 01-03-2025 36 Approval not req per [facility] updated and requested on [employer] [facility] 36 PC to Fred SOOD RN regarding proceeding with heart cath on Wednesday. Verbalized understanding. [facility] 36 Spoke with patient, she is feeling okay after hospital admission and would like to keep heart cath on for 01/05. Will await insurance [place] [facility] Basic Metabolic Profile (BMP )on 01-03-2025 BUN Normal 4-19 [facility] Comment on above: Result Comment: Canc elled via OM: Order cancelled - Patient discharged Performed By: #### L 500.2500, L100.0100 ####[facility] [address] [place], [address] BUN/CRE Normal 10-20 [facility] Comment on above: Result Comment: Canc elled via OM: Order cancelled - Patient discharged Performed By: #### L 500.2500, L100.0100 ####[facility] [address] [place], [address] Calcium Normal 7.6-11.0 [facility] Comment on above: Result Comment: Canc elled via OM: Order cancelled - Patient discharged Performed By: #### L 500.2500, L100.0100 ####[facility] [address] [place], [address] CL Normal 98-108 [facility] Comment on above: Result Comment: Canc elled via OM: Order cancelled - Patient discharged Performed By: #### L 500.2500, L100.0100 ####[facility] [address] [place], [address] CO2 Normal 21.0-32.0 [facility] Comment on above: Result Comment: Canc elled via OM: Order cancelled - Patient discharged Performed By: #### L 500.2500, L100.0100 ####[facility] [address] [place], [address] CREAT,SERUM Normal 0.70-1.20 [facility] Comment on above: Result Comment: Canc elled via OM: Order cancelled - Patient discharged Performed By: #### L 500.2500, L100.0100 ####[facility] [address] [place], [address] eGFR Normal >60 [facility] Comment on above: Result Comment: Canc elled via OM: Order cancelled - Patient discharged Performed By: #### L 500.2500, L100.0100 ####[facility] [address] [place], [address] GAP Normal 5-15 [facility] Comment on above: Result Comment: Canc elled via OM: Order cancelled - Patient discharged Performed By: #### L 500.2500, L100.0100 ####[facility] [address] [place], [address] GLU Normal 70-99 [facility] Comment on above: Result Comment: Canc elled via OM: Order cancelled - Patient discharged Performed By: #### L 500.2500, L100.0100 ####[facility] [address] [place], [address] Potassium Normal 3.3-5.1 [facility] Comment on above: Result Comment: Canc elled via OM: Order cancelled - Patient discharged Performed By: #### L 500.2500, L100.0100 ####[facility] [address] [place], [address] Basic Metabolic Profile (BMP) Normal 133-145 [facility] Comment on above: Result Comment: Canc elled via OM: Order cancelled - Patient discharged Performed By: #### L 500.2500, L100.0100 ####[facility] [address] [place], [address] CBC W/Diff, Automatedon 09-1 0-2024 Absolute Neut Normal 2.0-7.7 [facility] Comment on above: Result Comment: Canc elled via OM: Order cancelled - Patient discharged Performed By: #### L 500.2500, L100.0100 ####[facility] [address] [place], [address] HCT Normal 37-47 [facility] Comment on above: Result Comment: Canc elled via OM: Order cancelled - Patient discharged Performed By: #### L 500.2500, L100.0100 ####[facility] [address] [place], [address] HGB Normal 12.0-15.0 [facility] Comment on above: Result Comment: Canc elled via OM: Order cancelled - Patient discharged Performed By: #### L 500.2500, L100.0100 ####[facility] [address] [place], [address] MCH Normal 27.0-32.0 [facility] Comment on above: Result Comment: Canc elled via OM: Order cancelled - Patient discharged Performed By: #### L 500.2500, L100.0100 ####[facility] [address] [place], [address] MCHC Normal 32-36 [facility] Comment on above: Result Comment: Canc elled via OM: Order cancelled - Patient discharged Performed By: #### L 500.2500, L100.0100 ####[facility] [address] [place], [address] MCV Normal 81-99 [facility] Comment on above: Result Comment: Canc elled via OM: Order cancelled - Patient discharged Performed By: #### L 500.2500, L100.0100 ####[facility] [address] [place], [address] NEUT% Normal 47-70 [facility] Comment on above: Result Comment: Canc elled via OM: Order cancelled - Patient discharged Performed By: #### L 500.2500, L100.0100 ####[facility] [address] [place], [address] PLT Normal 150-450 [facility] Comment on above: Result Comment: Canc elled via OM: Order cancelled - Patient discharged Performed By: #### L 500.2500, L100.0100 ####[facility] [address] [place], [address] RBC Normal 4.2-5.4 [facility] Comment on above: Result Comment: Canc elled via OM: Order cancelled - Patient discharged Performed By: #### L 500.2500, L100.0100 ####[facility] [address] [place], [address] RDW CV Normal 11.6-14.6 [facility] Comment on above: Result Comment: Canc elled via OM: Order cancelled - Patient discharged Performed By: #### L 500.2500, L100.0100 ####[facility] [address] [place], [address] RDW SD Normal 35.1-43.9 [facility] Comment on above: Result Comment: Canc elled via OM: Order cancelled - Patient discharged Performed By: #### L 500.2500, L100.0100 ####[facility] [address] [place], [place], [address] WBC Normal 4.4-11.0 [facility] Comment on above: Result Comment: Bety munroe via OM: Order cancelled - Patient discharged Performed By: #### L 500.2500, L100.0100 ####[facility] [address] [place], [address] [facility] DENIA GONZALEZ ([id number]) 1955 F Date Time Provider Department 01/03[facility] During [facility] visit today, we recorded the following information about you: Judy Bliss RN 01/03/2025 8:35 AM Signed Breanna SW from [facility] calls and is asking for delay in care till next week. Breanna cannot see patient till next week. KAREN Werner Jesse, APRN.[facility] 01/03/2025 11:22 AM Signed Noted. Okay with delay in care. Nelson Robert APRN.[facility] Judy Bliss RN 01/03/2025 11:23 AM Signed Breanna notified of below. Voices understanding. Judy Bliss RN Allergies As of Date: 01/03/2025 (No Known Allergies) Date Reviewed: 11/22/2024 Reviewed by: Gregor Fernandez APRN.[employer] - Fully Assessed Reason for Visit: Delay [...] directed. Dx: COPD J44.9 - Nebulizer Accessories [facility] Mask and supplies as needed - PULSE OXIMETER [facility] Use as directed to check oxygen saturation level - ammonium lactate (AMLACTIN) 12 % lotion Apply 1 application to affected area as needed for Dry Skin. - losartan (COZAAR) 50 mg tablet Take 0.5 tablets by mouth once daily. - OXYGEN, HOME THERAPY, 2.5 L/min by Nasal Cannula route continuous. Use as directred - Disposable Gloves (DISPOSABLE LATEX-FREE GLOVES) [facility] 1 Box once every month. ICD 10: [...] p (more content not included)... Normal [facility] Basic Metabolic Profile (BMP )on 01-02-2025 BUN Normal 4-19 [facility] Comment on above: Result Comment: Canc elled via OM: Order cancelled - Patient discharged Performed By: #### L 500.2500, L100.0100 ####[facility] [address] [place], [address] BUN/CRE Normal 10-20 [facility] Comment on above: Result Comment: Canc elled via OM: Order cancelled - Patient discharged Performed By: #### L 500.2500, L100.0100 ####[facility] [address] [place], [address] Calcium Normal 7.6-11.0 [facility] Comment on above: Result Comment: Canc elled via OM: Order cancelled - Patient discharged Performed By: #### L 500.2500, L100.0100 ####[facility] [address] [place], [address] CL Normal 98-108 [facility] Comment on above: Result Comment: Canc elled via OM: Order cancelled - Patient discharged Performed By: #### L 500.2500, L100.0100 ####[facility] [address] [place], [address] CO2 Normal 21.0-32.0 [facility] Comment on above: Result Comment: Canc elled via OM: Order cancelled - Patient discharged Performed By: #### L 500.2500, L100.0100 ####[facility] [address] [place], [address] CREAT,SERUM Normal 0.70-1.20 [facility] Comment on above: Result Comment: Canc elled via OM: Order cancelled - Patient discharged Performed By: #### L 500.2500, L100.0100 ####[facility] [address] [place], [address] eGFR Normal >60 [facility] Comment on above: Result Comment: Canc elled via OM: Order cancelled - Patient discharged Performed By: #### L 500.2500, L100.0100 ####[facility] [address] [place], [address] GAP Normal 5-15 [facility] Comment on above: Result Comment: Canc elled via OM: Order cancelled - Patient discharged Performed By: #### L 500.2500, L100.0100 ####[facility] [address] [place], [address] GLU Normal 70-99 [facility] Comment on above: Result Comment: Canc elled via OM: Order cancelled - Patient discharged Performed By: #### L 500.2500, L100.0100 ####[facility] [address] [place], [address] Potassium Normal 3.3-5.1 [facility] Comment on above: Result Comment: Canc elled via OM: Order cancelled - Patient discharged Performed By: #### L 500.2500, L100.0100 ####[facility] [address] [place], [address] Basic Metabolic Profile (BMP) Normal 133-145 [facility] Comment on above: Result Comment: Canc elled via OM: Order cancelled - Patient discharged Performed By: #### L 500.2500, L100.0100 ####[facility] [address] [place], [address] CBC W/Diff, Automatedon 09-0 Absolute Neut Normal 2.0-7.7 [facility] Comment on above: Result Comment: Canc elled via OM: Order cancelled - Patient discharged Performed By: #### L 500.2500, L100.0100 ####[facility] [address] [place], [address] HCT Normal 37-47 [facility] Comment on above: Result Comment: Canc elled via OM: Order cancelled - Patient discharged Performed By: #### L 500.2500, L100.0100 ####[facility] [address] [place], [address] HGB Normal 12.0-15.0 [facility] Comment on above: Result Comment: Canc elled via OM: Order cancelled - Patient discharged Performed By: #### L 500.2500, L100.0100 ####[facility] [address] [place], [address] MCH Normal 27.0-32.0 [facility] Comment on above: Result Comment: Canc elled via OM: Order cancelled - Patient discharged Performed By: #### L 500.2500, L100.0100 ####[facility] [address] [place], [address] MCHC Normal 32-36 [facility] Comment on above: Result Comment: Canc elled via OM: Order cancelled - Patient discharged Performed By: #### L 500.2500, L100.0100 ####[facility] [address] [place], [address] MCV Normal 81-99 [facility] Comment on above: Result Comment: Canc elled via OM: Order cancelled - Patient discharged Performed By: #### L 500.2500, L100.0100 ####[facility] [address] [place], [address] NEUT% Normal 47-70 [facility] Comment on above: Result Comment: Canc elled via OM: Order cancelled - Patient discharged Performed By: #### L 500.2500, L100.0100 ####[facility] [address] [place], [address] PLT Normal 150-450 [facility] Comment on above: Result Comment: Canc elled via OM: Order cancelled - Patient discharged Performed By: #### L 500.2500, L100.0100 ####[facility] [address] [place], [address] RBC Normal 4.2-5.4 [facility] Comment on above: Result Comment: Canc elled via OM: Order cancelled - Patient discharged Performed By: #### L 500.2500, L100.0100 ####[facility] [address] [place], [address] RDW CV Normal 11.6-14.6 [facility] Comment on above: Result Comment: Canc elled via OM: Order cancelled - Patient discharged Performed By: #### L 500.2500, L100.0100 ####[facility] [address] [place], [address] RDW SD Normal 35.1-43.9 [facility] Comment on above: Result Comment: Canc elled via OM: Order cancelled - Patient discharged Performed By: #### L 500.2500, L100.0100 ####[facility] [address] [place], [address] WBC Normal 4.4-11.0 [facility] Comment on above: Result Comment: Canc elled via OM: Order cancelled - Patient discharged Performed By: #### L 500.2500, L100.0100 ####[facility] [address] [place], [address] [facility] [place] Tele[facility] (FAMPWS) DENIA GONZALEZ ([id number]) 1955 F Date Time Provider Department 01/02/25 YOSEPH FALL During your visit today, we recorded the following information about you: Brynn Watson LPN 01/02/2025 3:30 PM Signed Rafa from [facility] Home Health calling patient was discharged from [facility] on 12/30. Patient refused OT. Skliied nursing plans 2 visits weekly for 2 weeks, then 1 visit weekly for 2 weeks. Would like to add needs Social Work verbal order, for her mood, anxiety, depression. Palliative care had seen her while she was in [facility], hope they continue to see her. Patient [...] directed. Dx: COPD J44.9 - Nebulizer Accessories [facility] Mask and supplies as needed - PULSE OXIMETER [facility] Use as directed to check oxygen saturation level - ammonium lactate (AMLACTIN) 12 % lotion Apply 1 application to affected area as needed for Dry Skin. - losartan (COZAAR) 50 mg tablet Take 0.5 tablets by mouth once daily. - OXYGEN, HOME THERAPY, 2.5 L/min by Nasal Cannula route continuous. Use as directred - Disposable Gloves (DISPOSABLE LATEX-FREE GLOVES) [facility] 1 Box once every month. ICD 10: M15.9, J44.9, M54.40 - Incontinence Pad, Liner, Disp (POISE PADS) pads Use pads as directed. Dx: N39.46 - COMPOUNDED PRESCRIPTION BLOOD PRESSURE CUFF FOR HOME USE. DX: HYPERTENSION I10. AUTOMATIC CUFF. - COMPOUNDED PRESCRIPTION Blood press (more content not included)... Normal [facility] 36on 01-01-2025 36 Pending [facility] portal and records uploaded #[id number] Normal [facility] Basic Metabolic Profile (BMP )on 01-01-2025 BUN Normal 4-19 [facility] Comment on above: Result Comment: Canc elled via OM: Order cancelled - Patient discharged Performed By: #### L 500.2500, L100.0100 ####[facility] [address] [place], [address] BUN/CRE Normal 10-20 [facility] Comment on above: Result Comment: Canc elled via OM: Order cancelled - Patient discharged Performed By: #### L 500.2500, L100.0100 ####[facility] [address] [place], [address] Calcium Normal 7.6-11.0 [facility] Comment on above: Result Comment: Canc elled via OM: Order cancelled - Patient discharged Performed By: #### L 500.2500, L100.0100 ####[facility] [address] [place], [address] CL Normal 98-108 [facility] Comment on above: Result Comment: Canc elled via OM: Order cancelled - Patient discharged Performed By: #### L 500.2500, L100.0100 ####[facility] [address] [place], [address] CO2 Normal 21.0-32.0 [facility] Comment on above: Result Comment: Canc elled via OM: Order cancelled - Patient discharged Performed By: #### L 500.2500, L100.0100 ####[facility] [address] [place], [address] CREAT,SERUM Normal 0.70-1.20 [facility] Comment on above: Result Comment: Canc elled via OM: Order cancelled - Patient discharged Performed By: #### L 500.2500, L100.0100 ####[facility] [address] [place], [address] eGFR Normal >60 [facility] Comment on above: Result Comment: Canc elled via OM: Order cancelled - Patient discharged Performed By: #### L 500.2500, L100.0100 ####[facility] [address] [place], [address] GAP Normal 5-15 [facility] Comment on above: Result Comment: Canc elled via OM: Order cancelled - Patient discharged Performed By: #### L 500.2500, L100.0100 ####[facility] [address] [place], [address] GLU Normal 70-99 [facility] Comment on above: Result Comment: Canc elled via OM: Order cancelled - Patient discharged Performed By: #### L 500.2500, L100.0100 ####[facility] [address] [place], [address] Potassium Normal 3.3-5.1 [facility] Comment on above: Result Comment: Canc elled via OM: Order cancelled - Patient discharged Performed By: #### L 500.2500, L100.0100 ####[facility] [address] [place], [address] Basic Metabolic Profile (BMP) Normal 133-145 [facility] Comment on above: Result Comment: Canc elled via OM: Order cancelled - Patient discharged Performed By: #### L 500.2500, L100.0100 ####[facility] [address] [place], [address] CBC W/Diff, Automatedon 09-0 8-2024 Absolute Neut Normal 2.0-7.7 [facility] Comment on above: Result Comment: Canc elled via OM: Order cancelled - Patient discharged Performed By: #### L 500.2500, L100.0100 ####[facility] [address] [place], [address] HCT Normal 37-47 [facility] Comment on above: Result Comment: Canc elled via OM: Order cancelled - Patient discharged Performed By: #### L 500.2500, L100.0100 ####[facility] [address] [place], [address] HGB Normal 12.0-15.0 [facility] Comment on above: Result Comment: Canc elled via OM: Order cancelled - Patient discharged Performed By: #### L 500.2500, L100.0100 ####[facility] [address] [place], [address] MCH Normal 27.0-32.0 [facility] Comment on above: Result Comment: Canc elled via OM: Order cancelled - Patient discharged Performed By: #### L 500.2500, L100.0100 ####[facility] [address] [place], [address] MCHC Normal 32-36 [facility] Comment on above: Result Comment: Canc elled via OM: Order cancelled - Patient discharged Performed By: #### L 500.2500, L100.0100 ####[facility] [address] [place], [address] MCV Normal 81-99 [facility] Comment on above: Result Comment: Canc elled via OM: Order cancelled - Patient discharged Performed By: #### L 500.2500, L100.0100 ####[facility] [address] [place], [address] NEUT% Normal 47-70 [facility] Comment on above: Result Comment: Canc elled via OM: Order cancelled - Patient discharged Performed By: #### L 500.2500, L100.0100 ####[facility] [address] [place], [address] PLT Normal 150-450 [facility] Comment on above: Result Comment: Canc elled via OM: Order cancelled - Patient discharged Performed By: #### L 500.2500, L100.0100 ####[facility] [address] [place], [address] RBC Normal 4.2-5.4 [facility] Comment on above: Result Comment: Canc elled via OM: Order cancelled - Patient discharged Performed By: #### L 500.2500, L100.0100 ####[facility] [address] [place], [address] RDW CV Normal 11.6-14.6 [facility] Comment on above: Result Comment: Canc elled via OM: Order cancelled - Patient discharged Performed By: #### L 500.2500, L100.0100 ####[facility] [address] [place], [address] RDW SD Normal 35.1-43.9 [facility] Comment on above: Result Comment: Canc elled via OM: Order cancelled - Patient discharged Performed By: #### L 500.2500, L100.0100 ####[facility] [address] [place], [address] WBC Normal 4.4-11.0 [facility] Comment on above: Result Comment: Canc elled via OM: Order cancelled - Patient discharged Performed By: #### L 500.2500, L100.0100 ####[facility] [address] [place], [address] Basic Metabolic Profile (BMP )on 12-31-2024 BUN Normal 4-19 [facility] Comment on above: Result Comment: Canc elled via OM: Order cancelled - Patient discharged Performed By: #### L 500.2500, L100.0100 ####[facility] [address] [place], [address] BUN/CRE Normal 10-20 [facility] Comment on above: Result Comment: Canc elled via OM: Order cancelled - Patient discharged Performed By: #### L 500.2500, L100.0100 ####[facility] [address] [place], [address] Calcium Normal 7.6-11.0 [facility] Comment on above: Result Comment: Canc elled via OM: Order cancelled - Patient discharged Performed By: #### L 500.2500, L100.0100 ####[facility] [address] [place], [address] CL Normal 98-108 [facility] Comment on above: Result Comment: Canc elled via OM: Order cancelled - Patient discharged Performed By: #### L 500.2500, L100.0100 ####[facility] [address] [place], [address] CO2 Normal 21.0-32.0 [facility] Comment on above: Result Comment: Canc elled via OM: Order cancelled - Patient discharged Performed By: #### L 500.2500, L100.0100 ####[facility] [address] [place], [address] CREAT,SERUM Normal 0.70-1.20 [facility] Comment on above: Result Comment: Canc elled via OM: Order cancelled - Patient discharged Performed By: #### L 500.2500, L100.0100 ####[facility] [address] [place], [address] eGFR Normal >60 [facility] Comment on above: Result Comment: Canc elled via OM: Order cancelled - Patient discharged Performed By: #### L 500.2500, L100.0100 ####[facility] [address] [place], [address] GAP Normal 5-15 [facility] Comment on above: Result Comment: Canc elled via OM: Order cancelled - Patient discharged Performed By: #### L 500.2500, L100.0100 ####[facility] [address] [place], [address] GLU Normal 70-99 [facility] Comment on above: Result Comment: Canc elled via OM: Order cancelled - Patient discharged Performed By: #### L 500.2500, L100.0100 ####[facility] [address] [place], [address] Potassium Normal 3.3-5.1 [facility] Comment on above: Result Comment: Canc elled via OM: Order cancelled - Patient discharged Performed By: #### L 500.2500, L100.0100 ####[facility] [address] [place], [address] Basic Metabolic Profile (BMP) Normal 133-145 [facility] Comment on above: Result Comment: Canc elled via OM: Order cancelled - Patient discharged Performed By: #### L 500.2500, L100.0100 ####[facility] [address] [place], [address] CBC W/Diff, Automatedon 09-0 Absolute Neut Normal 2.0-7.7 [facility] Comment on above: Result Comment: Canc elled via OM: Order cancelled - Patient discharged Performed By: #### L 500.2500, L100.0100 ####[facility] [address] [place], [address] HCT Normal 37-47 [facility] Comment on above: Result Comment: Canc elled via OM: Order cancelled - Patient discharged Performed By: #### L 500.2500, L100.0100 ####[facility] [address] [place], [address] HGB Normal 12.0-15.0 [facility] Comment on above: Result Comment: Canc elled via OM: Order cancelled - Patient discharged Performed By: #### L 500.2500, L100.0100 ####[facility] [address] [place], [address] MCH Normal 27.0-32.0 [facility] Comment on above: Result Comment: Canc elled via OM: Order cancelled - Patient discharged Performed By: #### L 500.2500, L100.0100 ####[facility] [address] [place], [address] MCHC Normal 32-36 [facility] Comment on above: Result Comment: Canc elled via OM: Order cancelled - Patient discharged Performed By: #### L 500.2500, L100.0100 ####[facility] [address] [place], [address] MCV Normal 81-99 [facility] Comment on above: Result Comment: Canc elled via OM: Order cancelled - Patient discharged Performed By: #### L 500.2500, L100.0100 ####[facility] [address] [place], [address] NEUT% Normal 47-70 [facility] Comment on above: Result Comment: Canc elled via OM: Order cancelled - Patient discharged Performed By: #### L 500.2500, L100.0100 ####[facility] [address] [place], [address] PLT Normal 150-450 [facility] Comment on above: Result Comment: Canc elled via OM: Order cancelled - Patient discharged Performed By: #### L 500.2500, L100.0100 ####[facility] [address] [place], [address] RBC Normal 4.2-5.4 [facility] Comment on above: Result Comment: Canc elled via OM: Order cancelled - Patient discharged Performed By: #### L 500.2500, L100.0100 ####[facility] [address] [place], [address] RDW CV Normal 11.6-14.6 [facility] Comment on above: Result Comment: Canc elled via OM: Order cancelled - Patient discharged Performed By: #### L 500.2500, L100.0100 ####[facility] [address] [place], [address] RDW SD Normal 35.1-43.9 [facility] Comment on above: Result Comment: Canc elled via OM: Order cancelled - Patient discharged Performed By: #### L 500.2500, L100.0100 ####[facility] [address] [place], [address] WBC Normal 4.4-11.0 [facility] Comment on above: Result Comment: Canc elled via OM: Order cancelled - Patient discharged Performed By: #### L 500.2500, L100.0100 ####[facility] [address] [place], [address] Absolute lymphocyte countOrd ered By: Lynnesheba Schafer on 12-30-2024 Lymphocytes Auto (Unsp spec) [#/Vol] 0.47 10*3/uL Low 0.83-4.51 [facility] Absolute neutrophil countOrd ered By: Lynne Schafer on 12-30-2024 Neutrophils (Bld) [#/Vol] 7.3 10*3/uL 2.0-7.7 [facility] Anion gap in Serum or Plasma Ordered By: Lynne Schafer on 12-30-2024 Anion gap [Moles/Vol] 9 mmol/L 5-15 [facility] Automated lymphocyte count a s percentage of total leukocytesOrdered By: Lynnesheba Schafer on 12-30-2024 Lymphocytes/100 WBC Auto (Unsp spec) 5.9 % Low 19-41 [facility] BUN/creatinine ratioOrdered By: Lynne Schafer on 12-30-2024 Urea nitrogen/Creatinine [Mass ratio] 31.0 mg/mg High 10-20 [facility] Basic Metabolic Profile (BMP )on 12-30-2024 BUN/CRE 31.0 RATIO High 10-20 [facility] Comment on above: Performed By: #### L 100.0100, L500.2500 ####[facility] [address] [place], [address] Calcium [Mass/Vol] 8.5 mg/dL Normal 7.6-11.0 [facility] Comment on above: Performed By: #### L 100.0100, L500.2500 ####[facility] [address] [place], [address] Chloride [Moles/Vol] 95 mmol/L Low 98-[address] [facility] Comment on above: Performed By: #### L 100.0100, L500.2500 ####[facility] [address] [place], [address] CO2 [Moles/Vol] 37.3 mmol/L High 21.0-32.0 [facility] Comment on above: Performed By: #### L 100.0100, L500.2500 ####[facility] [address] [place], [address] Creatinine [Mass/Vol] 0.51 mg/dL Low 0.70-1.20 [facility] Comment on above: Performed By: #### L 100.0100, L500.2500 ####[facility] [address] [place], [address] ECRCL 65.36 ml/min Normal 50-250 [facility] Comment on above: Performed By: #### L 100.0100, L500.2500 ####[facility] [address] [place], [address] GAP 9 Normal 5-15 [facility] Comment on above: Performed By: #### L 100.0100, L500.2500 ####[facility] [address] [place], [address] GFR/1.73 sq M.predicted among non-blacks MDRD (S/P/Bld) [Vol rate/Area] 101 mL/min/{1.73_m2} Normal >60 [facility] Comment on above: Result Comment: mL/m in/1.73m2 CKD-EPI Creatinine Equation (2020) Performed By: #### L 100.0100, L500.2500 ####[facility] [address] [place], [address] Glucose [Mass/Vol] 124 mg/dL High 70-99 [facility] Comment on above: Performed By: #### L 100.0100, L500.2500 ####[facility] [address] [place], [address] Potassium [Moles/Vol] 4.7 mmol/L Normal 3.3-5.1 [facility] Comment on above: Performed By: #### L 100.0100, L500.2500 ####[facility] [address] [place], [address] Sodium [Moles/Vol] 141 mmol/L Normal 133-145 [facility] Comment on above: Performed By: #### L 100.0100, L500.2500 ####[facility] [address] [place], [address] Urea nitrogen [Mass/Vol] 16 mg/dL Normal 4-19 [facility] Comment on above: Performed By: #### L 100.0100, L500.2500 ####[facility] [address] [place], [address] Basophil percentageOrdered B y: Lynne Schafer on 12-30-2024 Basophils/100 WBC (Bld) 0.0 % 0-1 [facility] CBC W/Diff, Automatedon Absolute Lymph 0.47 X10 3/uL Low 0.83-4.51 [facility] Comment on above: Performed By: #### L 100.0100, L500.2500 ####[facility] [address] [place], [address] Absolute Neut 7.3 X10 3/uL Normal 2.0-7.7 [facility] Comment on above: Performed By: #### L 100.0100, L500.2500 ####[facility] [address] [place], [address] Basophils/100 WBC (Bld) 0.0 % Normal 0-1 [facility] Comment on above: Performed By: #### L 100.0100, L500.2500 ####[facility] [address] [place], [address] Eosinophils/100 WBC (Bld) 0.0 % Normal 0-5 [facility] Comment on above: Performed By: #### L 100.0100, L500.2500 ####[facility] [address] [place], [address] Erythrocyte distribution width (RBC) [Ratio] 13.7 % Normal 11.6-14.6 [facility] Comment on above: Performed By: #### L 100.0100, L500.2500 ####[facility] [address] [place], [address] Hematocrit (Bld) [Volume fraction] 28.6 % Low 37-47 [facility] Comment on above: Performed By: #### L 100.0100, L500.2500 ####[facility] [address] [place], [address] Hemoglobin (Bld) [Mass/Vol] 8.9 g/dL Low 12.0-15.0 [facility] Comment on above: Performed By: #### L 100.0100, L500.2500 ####[facility] [address] [place], [address] IG% 0.600 Normal 0.0-0.9 [facility] Comment on above: Result Comment: IG% - Immature Granulocytes (promyelocytes, myelocytes andmetamyelocytes) > 1% indicates that a LEFT SHIFT is Present. Performed By: #### L 100.0100, L500.2500 ####[facility] [address] [place], [address] Lymphocytes/100 WBC (Bld) 5.9 % Low 19-41 [facility] Comment on above: Performed By: #### L 100.0100, L500.2500 ####[facility] [address] [place], [address] MCH (RBC) [Entitic mass] 26.3 pg Low 27.0-32.0 [facility] Comment on above: Performed By: #### L 100.0100, L500.2500 ####[facility] [address] [place], [address] MCHC (RBC) [Mass/Vol] 31.1 g/dL Low 32-36 [facility] Comment on above: Performed By: #### L 100.0100, L500.2500 ####[facility] [address] [place], [address] MCV (RBC) [Entitic vol] 84.6 fL Normal 81-99 [facility] Comment on above: Performed By: #### L 100.0100, L500.2500 ####[facility] [address] [place], [address] Monocytes/100 WBC (Bld) 2.5 % Normal 0-10 [facility] Comment on above: Performed By: #### L 100.0100, L500.2500 ####[facility] [address] [place], [address] Neutrophils/100 WBC (Bld) 91.0 % High 47-70 [facility] Comment on above: Performed By: #### L 100.0100, L500.2500 ####[facility] [address] [place], [address] Nucleated RBC (Bld) [#/Vol] 0 10*3/uL Normal 0-5 [facility] Comment on above: Performed By: #### L 100.0100, L500.2500 ####[facility] [address] [place], [address] Platelet mean volume (Bld) [Entitic vol] 9.7 fL Normal 6.2-12.0 [facility] Comment on above: Performed By: #### L 100.0100, L500.2500 ####[facility] [address] [place], [address] Platelets (Bld) [#/Vol] 212 10*3/uL Normal 150-450 [facility] Comment on above: Performed By: #### L 100.0100, L500.2500 ####[facility] [address] [place], [address] RBC (Bld) [#/Vol] 3.38 10*6/uL Low 4.2-5.4 [facility] Comment on above: Performed By: #### L 100.0100, L500.2500 ####[facility] [address] [place], [address] RDW SD 42.5 fl Normal 35.1-43.9 [facility] Comment on above: Performed By: #### L 100.0100, L500.2500 ####[facility] [address] [place], [address] WBC (Bld) [#/Vol] 8.0 10*3/uL Normal 4.4-11.0 [facility] Comment on above: Performed By: #### L 100.0100, L500.2500 ####[facility] [address] [place], [address] Carbon dioxide, total [Moles /volume] in Central venous bloodOrdered By: Lynne Schafer on 12-30-2024 CO2 [Moles/Vol] 37.3 mmol/L High 21.0-32.0 [facility] Chloride assayOrdered By: Na na Gilmar on 12-30-2024 Chloride [Moles/Vol] 95 mmol/L Low 98-[address] [facility] Discharge Instructionon 09-0 Discharge Instruction Normal [facility] Eosinophil percentageOrdered By: Lynne Schafer on 12-30-2024 Eosinophils/100 WBC (Bld) 0.0 % 0-5 [facility] Erythrocyte distribution wid th ratioOrdered By: Lynne Schafer on 12-30-2024 Erythrocyte distribution width (RBC) [Ratio] 13.7 % 11.6-14.6 [facility] Erythrocyte distribution wid th standard deviationOrdered By: Lynne Schafer on 12-30-2024 Erythrocyte distribution width (RBC) [Ratio] 42.5 fl 35.1-43.9 [facility] Glomerular filtration rate ( GFR) estimation/1.73 sq m using serum, plasma, or whole bOrdered By: Lynne Schafer on 12-30-2024 GFR/1.73 sq M.predicted among non-blacks MDRD (S/P/Bld) [Vol rate/Area] 101 mL/min/{1.73_m2} >60 [facility] Comment on above: mL/min/1.73m2 CKD-EP I Creatinine Equation (2020) Hematocrit Auto (Bld) [Volum e fraction]Ordered By: Lynne Schafer on 12-30-2024 Hematocrit (Bld) [Volume fraction] 28.6 % Low 37-47 [facility] Hemoglobin measurementOrdere d By: Lynne Schafer on 12-30-2024 Hemoglobin (Bld) [Mass/Vol] 8.9 g/dL Low 12.0-15.0 [facility] Immature granulocytes/100 WB C Auto (Bld)Ordered By: Lynne Schafer on 12-30-2024 Immature granulocytes/100 WBC (Bld) 0.600 % 0.0-0.9 [facility] Comment on above: IG% - Immature Granu locytes (promyelocytes, myelocytes and metamyelocytes) > 1% indicates that a LEFT SHIFT is Present. MCV (mean corpuscular volume ) determinationOrdered By: Lynne Schafer on 12-30-2024 MCV (RBC) [Entitic vol] 84.6 fL 81-99 [facility] Mean corpuscular hemoglobin (MCH) determinationOrdered By: Lynne Schafer on 12-30-2024 MCH (RBC) [Entitic mass] 26.3 pg Low 27.0-32.0 [facility] Mean corpuscular hemoglobin concentration (MCHC) determinationOrdered By: Lynne Schafer on 12-30-2024 MCHC (RBC) [Mass/Vol] 31.1 g/dL Low 32-36 [facility] Mean platelet volume determi nationOrdered By: Lynne Schafer on 12-30-2024 Platelet mean volume (Bld) [Entitic vol] 9.7 fL 6.2-12.0 [facility] Monocyte percentageOrdered B y: Lynne Schafer on 12-30-2024 Monocytes/100 WBC (Bld) 2.5 % 0-10 [facility] Neutrophil percentageOrdered By: Lynne Schafer on 12-30-2024 Neutrophils/100 WBC (Bld) 91.0 % High 47-70 [facility] Nucleated red blood cell per centageOrdered By: Lynne Schafer on 12-30-2024 Nucleated RBC/100 WBC (Bld) [Ratio] 0 % 0-5 [facility] Platelet countOrdered By: Belkys Schafer on 12-30-2024 Platelets (Bld) [#/Vol] 212 10*3/uL 150-450 [facility] Potassium measurement (mass/ volume)Ordered By: Lynne Schafer on 12-30-2024 Potassium (Unsp spec) [Mass/Vol] 4.7 mmol/L 3.3-5.1 [facility] RBC Auto (Bld) [#/Vol]Ordere d By: Lynne Schafer on 12-30-2024 RBC (Bld) [#/Vol] 3.38 10*6/uL Low 4.2-5.4 [facility] Serum creatinine measurement (mass/volume)Ordered By: Lynne Schafer on 12-30-2024 Creatinine [Mass/Vol] 0.51 mg/dL Low 0.70-1.20 [facility] Serum glucose measurement (m ass/volume)Ordered By: Lynne Schafer on 12-30-2024 Glucose [Mass/Vol] 124 mg/dL High 70-99 [facility] Serum or plasma calcium kadi urement (mass/volume)Ordered By: Lynne Schafer on 12-30-2024 Calcium [Mass/Vol] 8.5 mg/dL 7.6-11.0 [facility] Serum or plasma urea nitroge n measurement (mass/volume)Ordered By: Lynne Schafer on 12-30-2024 Urea nitrogen [Mass/Vol] 16 mg/dL 4-19 [facility] Sodium levelOrdered By: Lynne Schafer on 12-30-2024 Sodium [Moles/Vol] 141 mmol/L 133-145 [facility] White blood cell (WBC) count Ordered By: Lynne Schafer on 12-30-2024 WBC (Bld) [#/Vol] 8.0 10*3/uL 4.4-11.0 [facility] Basic Metabolic Profile (BMP )on 12-29-2024 BUN/CRE 37.4 RATIO High 10-20 [facility] Comment on above: Performed By: #### L 500.2500, L100.0100 ####[facility] [address] [place], [address] Calcium [Mass/Vol] 8.7 mg/dL Normal 7.6-11.0 [facility] Comment on above: Performed By: #### L 500.2500, L100.0100 ####[facility] [address] [place], [address] Chloride [Moles/Vol] 94 mmol/L Low 98-[address] [facility] Comment on above: Performed By: #### L 500.2500, L100.0100 ####[facility] [address] [place], [address] CO2 [Moles/Vol] 38.0 mmol/L High 21.0-32.0 [facility] Comment on above: Performed By: #### L 500.2500, L100.0100 ####[facility] [address] [place], [address] Creatinine [Mass/Vol] 0.55 mg/dL Low 0.70-1.20 [facility] Comment on above: Performed By: #### L 500.2500, L100.0100 ####[facility] [address] [place], [address] ECRCL 65.36 ml/min Normal 50-250 [facility] Comment on above: Performed By: #### L 500.2500, L100.0100 ####[facility] [address] [place], [address] GAP 8 Normal 5-15 [facility] Comment on above: Performed By: #### L 500.2500, L100.0100 ####[facility] [address] [place], [address] GFR/1.73 sq M.predicted among non-blacks MDRD (S/P/Bld) [Vol rate/Area] 99 mL/min/{1.73_m2} Normal >60 [facility] Comment on above: Result Comment: mL/m in/1.73m2 CKD-EPI Creatinine Equation (2020) Performed By: #### L 500.2500, L100.0100 ####[facility] [address] [place], [address] Glucose [Mass/Vol] 97 mg/dL Normal 70-99 [facility] Comment on above: Performed By: #### L 500.2500, L100.0100 ####[facility] [address] [place], [address] Potassium [Moles/Vol] 4.4 mmol/L Normal 3.3-5.1 [facility] Comment on above: Performed By: #### L 500.2500, L100.0100 ####[facility] [address] [place], [address] Sodium [Moles/Vol] 140 mmol/L Normal 133-145 [facility] Comment on above: Performed By: #### L 500.2500, L100.0100 ####[facility] [address] [place], [address] Urea nitrogen [Mass/Vol] 21 mg/dL High 4-19 [facility] Comment on above: Performed By: #### L 500.2500, L100.0100 ####[facility] [address] [place], [address] CBC W/Diff, Automatedon 09-0 -2024 Absolute Lymph 0.49 X10 3/uL Low 0.83-4.51 [facility] Comment on above: Performed By: #### L 500.2500, L100.0100 ####[facility] [address] [place], [address] Absolute Neut 6.8 X10 3/uL Normal 2.0-7.7 [facility] Comment on above: Performed By: #### L 500.2500, L100.0100 ####[facility] [address] [place], [address] Basophils/100 WBC (Bld) 0.1 % Normal 0-1 [facility] Comment on above: Performed By: #### L 500.2500, L100.0100 ####[facility] [address] [place], [address] Eosinophils/100 WBC (Bld) 0.0 % Normal 0-5 [facility] Comment on above: Performed By: #### L 500.2500, L100.0100 ####[facility] [address] [place], [address] Erythrocyte distribution width (RBC) [Ratio] 14.0 % Normal 11.6-14.6 [facility] Comment on above: Performed By: #### L 500.2500, L100.0100 ####[facility] [address] [place], [address] Hematocrit (Bld) [Volume fraction] 26.6 % Low 37-47 [facility] Comment on above: Performed By: #### L 500.2500, L100.0100 ####[facility] [address] [place], [address] Hemoglobin (Bld) [Mass/Vol] 8.4 g/dL Low 12.0-15.0 [facility] Comment on above: Performed By: #### L 500.2500, L100.0100 ####[facility] [address] [place], [address] IG% 0.700 Normal 0.0-0.9 [facility] Comment on above: Result Comment: IG% - Immature Granulocytes (promyelocytes, myelocytes andmetamyelocytes) > 1% indicates that a LEFT SHIFT is Present. Performed By: #### L 500.2500, L100.0100 ####[facility] [address] [place], [address] Lymphocytes/100 WBC (Bld) 6.5 % Low 19-41 [facility] Comment on above: Performed By: #### L 500.2500, L100.0100 ####[facility] [address] [place], [address] MCH (RBC) [Entitic mass] 26.7 pg Low 27.0-32.0 [facility] Comment on above: Performed By: #### L 500.2500, L100.0100 ####[facility] [address] [place], [address] MCHC (RBC) [Mass/Vol] 31.6 g/dL Low 32-36 [facility] Comment on above: Performed By: #### L 500.2500, L100.0100 ####[facility] [address] [place], [address] MCV (RBC) [Entitic vol] 84.4 fL Normal 81-99 [facility] Comment on above: Performed By: #### L 500.2500, L100.0100 ####[facility] [address] [place], [address] Monocytes/100 WBC (Bld) 2.8 % Normal 0-10 [facility] Comment on above: Performed By: #### L 500.2500, L100.0100 ####[facility] [address] [place], [address] Neutrophils/100 WBC (Bld) 89.9 % High 47-70 [facility] Comment on above: Performed By: #### L 500.2500, L100.0100 ####[facility] [address] [place], [address] Nucleated RBC (Bld) [#/Vol] 0 10*3/uL Normal 0-5 [facility] Comment on above: Performed By: #### L 500.2500, L100.0100 ####[facility] [address] [place], [address] Platelet mean volume (Bld) [Entitic vol] 9.3 fL Normal 6.2-12.0 [facility] Comment on above: Performed By: #### L 500.2500, L100.0100 ####[facility] [address] [place], [address] Platelets (Bld) [#/Vol] 169 10*3/uL Normal 150-450 [facility] Comment on above: Performed By: #### L 500.2500, L100.0100 ####[facility] [address] [place], [address] RBC (Bld) [#/Vol] 3.15 10*6/uL Low 4.2-5.4 [facility] Comment on above: Performed By: #### L 500.2500, L100.0100 ####[facility] [address] [place], [address] RDW SD 43.0 fl Normal 35.1-43.9 [facility] Comment on above: Performed By: #### L 500.2500, L100.0100 ####[facility] [address] [place], [address] WBC (Bld) [#/Vol] 7.6 10*3/uL Normal 4.4-11.0 [facility] Comment on above: Performed By: #### L 500.2500, L100.0100 ####[facility] [address] [place], [address] 12 Lead EKGon 12-28-2024 12 Lead EKG Normal [facility] Basic Metabolic Profile (BMP )on 12-28-2024 BUN/CRE 39.3 RATIO High 10-20 [facility] Comment on above: Performed By: #### L 100.0100, L500.2500 ####[facility] [address] [place], [address] Calcium [Mass/Vol] 9.1 mg/dL Normal 7.6-11.0 [facility] Comment on above: Performed By: #### L 100.0100, L500.2500 ####[facility] [address] [place], [address] Chloride [Moles/Vol] 93 mmol/L Low 98-[address] [facility] Comment on above: Performed By: #### L 100.0100, L500.2500 ####[facility] [address] [place], [address] CO2 [Moles/Vol] 37.2 mmol/L High 21.0-32.0 [facility] Comment on above: Performed By: #### L 100.0100, L500.2500 ####[facility] [address] [place], [address] Creatinine [Mass/Vol] 0.59 mg/dL Low 0.70-1.20 [facility] Comment on above: Performed By: #### L 100.0100, L500.2500 ####[facility] [address] [place], [address] ECRCL 64.18 ml/min Normal 50-250 [facility] Comment on above: Performed By: #### L 100.0100, L500.2500 ####[facility] [address] [place], [address] GAP 9 Normal 5-15 [facility] Comment on above: Performed By: #### L 100.0100, L500.2500 ####[facility] [address] [place], [address] GFR/1.73 sq M.predicted among non-blacks MDRD (S/P/Bld) [Vol rate/Area] 97 mL/min/{1.73_m2} Normal >60 [facility] Comment on above: Result Comment: mL/m in/1.73m2 CKD-EPI Creatinine Equation (2020) Performed By: #### L 100.0100, L500.2500 ####[facility] [address] [place], [address] Glucose [Mass/Vol] 132 mg/dL High 70-99 [facility] Comment on above: Performed By: #### L 100.0100, L500.2500 ####[facility] [address] [place], [address] Potassium [Moles/Vol] 4.6 mmol/L Normal 3.3-5.1 [facility] Comment on above: Performed By: #### L 100.0100, L500.2500 ####[facility] [address] [place], [address] Sodium [Moles/Vol] 139 mmol/L Normal 133-145 [facility] Comment on above: Performed By: #### L 100.0100, L500.2500 ####[facility] [address] [place], [address] Urea nitrogen [Mass/Vol] 23 mg/dL High 4-19 [facility] Comment on above: Performed By: #### L 100.0100, L500.2500 ####[facility] [address] [place], [address] CBC W/Diff, Automatedon 09-0 -2024 Absolute Lymph 0.58 X10 3/uL Low 0.83-4.51 [facility] Comment on above: Performed By: #### L 100.0100, L500.2500 ####[facility] [address] [place], [address] Absolute Neut 9.6 X10 3/uL High 2.0-7.7 [facility] Comment on above: Performed By: #### L 100.0100, L500.2500 ####[facility] [address] [place], [address] Basophils/100 WBC (Bld) 0.1 % Normal 0-1 [facility] Comment on above: Performed By: #### L 100.0100, L500.2500 ####[facility] [address] [place], [address] Eosinophils/100 WBC (Bld) 0.0 % Normal 0-5 [facility] Comment on above: Performed By: #### L 100.0100, L500.2500 ####[facility] [address] [place], [address] Erythrocyte distribution width (RBC) [Ratio] 13.8 % Normal 11.6-14.6 [facility] Comment on above: Performed By: #### L 100.0100, L500.2500 ####[facility] [address] [place], [address] Hematocrit (Bld) [Volume fraction] 26.4 % Low 37-47 [facility] Comment on above: Performed By: #### L 100.0100, L500.2500 ####[facility] [address] [place], [address] Hemoglobin (Bld) [Mass/Vol] 8.5 g/dL Low 12.0-15.0 [facility] Comment on above: Performed By: #### L 100.0100, L500.2500 ####[facility] [address] [place], [address] IG% 0.800 Normal 0.0-0.9 [facility] Comment on above: Result Comment: IG% - Immature Granulocytes (promyelocytes, myelocytes andmetamyelocytes) > 1% indicates that a LEFT SHIFT is Present. Performed By: #### L 100.0100, L500.2500 ####[facility] [address] [place], [address] Lymphocytes/100 WBC (Bld) 5.5 % Low 19-41 [facility] Comment on above: Performed By: #### L 100.0100, L500.2500 ####[facility] [address] [place], [address] MCH (RBC) [Entitic mass] 27.1 pg Normal 27.0-32.0 [facility] Comment on above: Performed By: #### L 100.0100, L500.2500 ####[facility] [address] [place], [address] MCHC (RBC) [Mass/Vol] 32.2 g/dL Normal 32-36 [facility] Comment on above: Performed By: #### L 100.0100, L500.2500 ####[facility] [address] [place], [address] MCV (RBC) [Entitic vol] 84.1 fL Normal 81-99 [facility] Comment on above: Performed By: #### L 100.0100, L500.2500 ####[facility] [address] [place], [address] Monocytes/100 WBC (Bld) 3.0 % Normal 0-10 [facility] Comment on above: Performed By: #### L 100.0100, L500.2500 ####[facility] [address] [place], [address] Neutrophils/100 WBC (Bld) 90.6 % High 47-70 [facility] Comment on above: Performed By: #### L 100.0100, L500.2500 ####[facility] [address] [place], [address] Nucleated RBC (Bld) [#/Vol] 0 10*3/uL Normal 0-5 [facility] Comment on above: Performed By: #### L 100.0100, L500.2500 ####[facility] [address] [place], [address] Platelet mean volume (Bld) [Entitic vol] 9.4 fL Normal 6.2-12.0 [facility] Comment on above: Performed By: #### L 100.0100, L500.2500 ####[facility] [address] [place], [address] Platelets (Bld) [#/Vol] 203 10*3/uL Normal 150-450 [facility] Comment on above: Performed By: #### L 100.0100, L500.2500 ####[facility] [address] [place], [address] RBC (Bld) [#/Vol] 3.14 10*6/uL Low 4.2-5.4 [facility] Comment on above: Performed By: #### L 100.0100, L500.2500 ####[facility] [address] [place], [address] RDW SD 42.5 fl Normal 35.1-43.9 [facility] Comment on above: Performed By: #### L 100.0100, L500.2500 ####[facility] [address] [place], [address] WBC (Bld) [#/Vol] 10.6 10*3/uL Normal 4.4-11.0 [facility] Comment on above: Performed By: #### L 100.0100, L500.2500 ####[facility] [address] [place], [address] EGD Reporton 12-28-2024 EGD Report Normal [facility] MR/CON.PCM.GIon 12-28-2024 MR/CON.PCM.GI Normal [facility] MR/OP.PROVATon 12-28-2024 MR/OP.PROVAT Normal [facility] MR/POSTOP.ANEon 12-28-2024 MR/POSTOP.ANE Normal [facility] MR/SWXBNCQZ2pu 12-28-2024 MR/POSTOPAN2 Normal [facility] Absolute lymphocyte countOrd ered By: Dionne Charlotte on 12-27-2024 Lymphocytes Auto (Unsp spec) [#/Vol] 0.44 10*3/uL Low 0.83-4.51 [facility] Absolute neutrophil countOrd ered By: on 12-27-2024 Neutrophils (Bld) [#/Vol] 4.8 10*3/uL 2.0-7.7 [facility] Anion gap in Serum or Plasma Ordered By: Charlotte on 12-27-2024 Anion gap [Moles/Vol] 9 mmol/L 5-15 [facility] Automated lymphocyte count a s percentage of total leukocytesOrdered By: on 12-27-2024 Lymphocytes/100 WBC Auto (Unsp spec) 8.1 % Low 19-41 [facility] BUN/creatinine ratioOrdered By: on 12-27-2024 Urea nitrogen/Creatinine [Mass ratio] 29.6 mg/mg High 10-20 [facility] Basophil percentageOrdered B y: on 12-27-2024 Basophils/100 WBC (Bld) 0.2 % 0-1 [facility] Bilirubin, totalOrdered By: Charlotte on 12-27-2024 Bilirubin [Mass/Vol] 0.31 mg/dL 0.00-1.[address] [facility] CBC W/Diff, Automatedon Absolute Lymph 0.44 X10 3/uL Low 0.83-4.51 [facility] Comment on above: Performed By: #### L 100.0100, L500.4050 ####[facility] [address] [place], [place], [id number] Absolute Neut 4.8 X10 3/uL Normal 2.0-7.7 [facility] Comment on above: Performed By: #### L 100.0100, L500.4050 ####[facility] [address] [place], [address] Basophils/100 WBC (Bld) 0.2 % Normal 0-1 [facility] Comment on above: Performed By: #### L 100.0100, L500.4050 ####[facility] [facility] [address] [place], [address] Eosinophils/100 WBC (Bld) 0.0 % Normal 0-5 [facility] Comment on above: Performed By: #### L 100.0100, L500.4050 ####[facility] [address] [place], [address] Erythrocyte distribution width (RBC) [Ratio] 14.2 % Normal 11.6-14.6 [facility] Comment on above: Performed By: #### L 100.0100, L500.4050 ####[facility] [address] [place], [address] Hematocrit (Bld) [Volume fraction] 26.3 % Low 37-47 [facility] Comment on above: Performed By: #### L 100.0100, L500.4050 ####[facility] [address] [place], [address] Hemoglobin (Bld) [Mass/Vol] 8.5 g/dL Low 12.0-15.0 [facility] Comment on above: Performed By: #### L 100.0100, L500.4050 ####[facility] [address] [place], [address] IG% 1.300 High 0.0-0.9 [facility] Comment on above: Result Comment: IG% - Immature Granulocytes (promyelocytes, myelocytes andmetamyelocytes) > 1% indicates that a LEFT SHIFT is Present. Performed By: #### L 100.0100, L500.4050 ####[facility] [address] [place], [address] Lymphocytes/100 WBC (Bld) 8.1 % Low 19-41 [facility] Comment on above: Performed By: #### L 100.0100, L500.4050 ####[facility] [address] [place], [address] MCH (RBC) [Entitic mass] 27.1 pg Normal 27.0-32.0 [facility] Comment on above: Performed By: #### L 100.0100, L500.4050 ####[facility] [address] [place], [address] MCHC (RBC) [Mass/Vol] 32.3 g/dL Normal 32-36 [facility] Comment on above: Performed By: #### L 100.0100, L500.4050 ####[facility] [address] [place], [address] MCV (RBC) [Entitic vol] 83.8 fL Normal 81-99 [facility] Comment on above: Performed By: #### L 100.0100, L500.4050 ####[facility] [address] [place], [address] Monocytes/100 WBC (Bld) 1.7 % Normal 0-10 [facility] Comment on above: Performed By: #### L 100.0100, L500.4050 ####[facility] [address] [place], [address] Neutrophils/100 WBC (Bld) 88.7 % High 47-70 [facility] Comment on above: Performed By: #### L 100.0100, L500.4050 ####[facility] [address] [place], [address] Nucleated RBC (Bld) [#/Vol] 0 10*3/uL Normal 0-5 [facility] Comment on above: Performed By: #### L 100.0100, L500.4050 ####[facility] [address] [place], [address] Platelet mean volume (Bld) [Entitic vol] 10.0 fL Normal 6.2-12.0 [facility] Comment on above: Performed By: #### L 100.0100, L500.4050 ####[facility] [address] [place], [address] Platelets (Bld) [#/Vol] 188 10*3/uL Normal 150-450 [facility] Comment on above: Performed By: #### L 100.0100, L500.4050 ####[facility] [address] [place], [address] RBC (Bld) [#/Vol] 3.14 10*6/uL Low 4.2-5.4 [facility] Comment on above: Performed By: #### L 100.0100, L500.4050 ####[facility] [address] [place], [address] RDW SD 42.8 fl Normal 35.1-43.9 [facility] Comment on above: Performed By: #### L 100.0100, L500.4050 ####[facility] [address] [place], [address] WBC (Bld) [#/Vol] 5.4 10*3/uL Normal 4.4-11.0 [facility] Comment on above: Performed By: #### L 100.0100, L500.4050 ####[facility] [address] [place], [address] CNPDaylin 12-27-2024 CNPN Telephone ([facility]) DENIA GONZALEZ ([id number]) 1955 F Date Time Provider Department 12/27/24 YOSEPH FALL During your visit today, we recorded the following information about you: Sukhi Marrero RN 12/27/2024 2:48 PM Signed [place]ma Anguiano with [facility] calls to let provider know that patient was admitted to [facility] last evening for COPD exacerbation. [facility] KAREN Barney Jesse, APRN.CNP 01/01/2025 8:58 [...] directed. Dx: COPD J44.9 - Nebulizer [facility] [place] [facility] Mask and supplies as needed - PULSE OXIMETER [facility] Use as directed to check [...] Cholelithiasis (more content not included)... Normal [facility] Carbon dioxide, total [Moles /volume] in Central venous bloodOrdered By: Dionne Porter on 12-27-2024 CO2 [Moles/Vol] 39.4 mmol/L High 21.0-32.0 [facility] Chloride assayOrdered By: Lidya Porter on 12-27-2024 Chloride [Moles/Vol] 92 mmol/L Low 98-[address] [facility] Comprehensive Metabolic Prof deni 12-27-2024 Potassium [Moles/Vol] 3.0 mmol/L Low 3.3-5.1 [facility] Comment on above: Result Comment: Hemo lysis present, Results??could be affected.?? AMENDED REPORT 12/27/24834 K previously reported as: 4.2 mmol/LHemolysis present, Results??could be affected.?? Performed By: #### L 100.0100, L500.4050 ####[facility] [address] [place], [address] Electrocardiogram reportOrde red By: Junito Madrid on 12-27-2024 EKG study [facility] [address] [place] [address] 12 Lead EKG 12/26/24 1403 MR#: [id number] Acct: [id number] Name: DENIA GONZALEZ Rep #:[id number] : 1955 69 From: Junito contreras MD Attending Dr: Dr. Lynne Schafer MD Status: ADM IN Ordering Dr: Marcel Zarate MD Date: 12/26/24 Location: [facility] Sex: F C Admitted: 12/26/24 Test [...] enlargement Borderline ECG Confirmed by Junito Madrid ([id number]), editor school photograph LEORA RESTREPO ([id number]) on 12/27/2024 8:19:45 AM Referred By: ER/AK Confirmed By: Junito Madrid 12/27/24 0819 Date _ Junito Madrid MD CC: Dr. Marcel Zarate MD; Dr. Yoseph Fall MD; Dr. Lynne Schafer MD ~ Signed [facility] Work Phone: Eosinophil percentageOrdered By: Dionne Porter on 12-27-2024 Eosinophils/100 WBC (Bld) 0.0 % 0-5 [facility] Erythrocyte distribution wid th ratioOrdered By: Dionne White on 12-27-2024 Erythrocyte distribution width (RBC) [Ratio] 14.2 % 11.6-14.6 [facility] Erythrocyte distribution wid th standard deviationOrdered By: Dionne White on 12-27-2024 Erythrocyte distribution width (RBC) [Ratio] 42.8 fl 35.1-43.9 [facility] Ferritinon 12-27-2024 Ferritin [Mass/Vol] 35 ng/mL Normal 22-378 [facility] Comment on above: Performed By: #### L 503.6567, L503.6008 ####[facility] [address] [place], [place], [address] Glomerular filtration rate ( GFR) estimation/1.73 sq m using serum, plasma, or whole bOrdered By: Dionne Porter on 12-27-2024 GFR/1.73 sq M.predicted among non-blacks MDRD (S/P/Bld) [Vol rate/Area] 97 mL/min/{1.73_m2} >60 [facility] Comment on above: mL/min/1.73m2 CKD-EP I Creatinine Equation (2020) Gram Stainon 12-27-2024 GS Acceptable Specimen? No (>25 Epithelial cells per/lpf) Gram Stain 4+ Gram positive rods 3+ Gram negative rods 2+ Epithelial cells Normal [facility] Comment on above: Performed By: #### M 100.2000, M100.2400 ####[facility] [address] [place], [place], [address] HH, Hemoglobin AND Hematocri ton 12-27-2024 Hematocrit (Bld) [Volume fraction] 29.0 % Low 37-47 [facility] Comment on above: Performed By: #### L 100.0600 ####[facility] [address] [place], [place], [phone] Hemoglobin (Bld) [Mass/Vol] 9.3 g/dL Low 12.0-15.0 [facility] Comment on above: Performed By: #### L 100.0600 ####[facility] [address] [place], [address] Hematocrit Auto (Bld) [Volum e fraction]Ordered By: Dionne Porter on 12-27-2024 Hematocrit (Bld) [Volume fraction] 26.3 % Low 37-47 [facility] Hemoglobin measurementOrdere d By: Dionne Porter on 12-27-2024 Hemoglobin (Bld) [Mass/Vol] 8.5 g/dL Low 12.0-15.0 [facility] Immature granulocytes/100 WB C Auto (Bld)Ordered By: [facility] [place] on 12-27-2024 Immature granulocytes/100 WBC (Bld) 1.300 % High 0.0-0.9 [facility] Comment on above: IG% - Immature Granu locytes (promyelocytes, myelocytes and metamyelocytes) > 1% indicates that a LEFT SHIFT is Present. Iron measurement (mass/mass) Ordered By: Lynne Schafer on 12-27-2024 Iron (Unsp spec) [Mass/Mass] 17 ug/dL Low 50-170 [facility] Iron+Iron Binding Capacityon 12-27-2024 Iron [Mass/Vol] 17 ug/dL Low 50-170 [facility] Comment on above: Order Comment: off o f am blood work Performed By: #### L 503.6550, L503.6030 ####[facility] [address] [place], [address] IRON SATURATION 6.0 Low 13-59 [facility] Comment on above: Order Comment: off o f am blood work Performed By: #### L 503.6550, L503.6030 ####[facility] [address] [place], [address] TIBC 305 ug/dL Normal 250-450 [facility] Comment on above: Order Comment: off o f am blood work Performed By: #### L 503.6550, L503.6030 ####[facility] [address] [place], [address] UIBC 288 ug/dL Normal 228-428 [facility] Comment on above: Order Comment: off o f am blood work Performed By: #### L 503.6550, L503.6030 ####[facility] [address] [place], [place], [address] Laboratory - Chemistry and C hemistry - challengeOrdered By: Dionne Porter on 12-27-2024 AST [Catalytic activity/Vol] 20 U/L <32 [facility] MCV (mean corpuscular volume ) determinationOrdered By: Dionne [place] on 12-27-2024 MCV (RBC) [Entitic vol] 83.8 fL 81-99 [facility] MR/CON.PCM.PAon 12-27-2024 MR/CON.PCM.PA Normal [facility] Mean corpuscular hemoglobin (MCH) determinationOrdered By: Dionne [place] on 12-27-2024 MCH (RBC) [Entitic mass] 27.1 pg 27.0-32.0 [facility] Mean corpuscular hemoglobin concentration (MCHC) determinationOrdered By: [place] on 12-27-2024 MCHC (RBC) [Mass/Vol] 32.3 g/dL 32-36 [facility] Mean platelet volume determi nationOrdered By: Dionne [place] on 12-27-2024 Platelet mean volume (Bld) [Entitic vol] 10.0 fL 6.2-12.0 [facility] Monocyte percentageOrdered B y: Dionne [place] on 12-27-2024 Monocytes/100 WBC (Bld) 1.7 % 0-10 [facility] Neutrophil percentageOrdered By: White on 12-27-2024 Neutrophils/100 WBC (Bld) 88.7 % High 47-70 [facility] No Panel InformationOrdered By: Lynne Schafer on 12-27-2024 Unsaturated Iron Binding Capacity 288 ug/dL 228-428 [facility] 288 ug/dL 228-428 [facility] No Panel InformationOrdered By: Dionne Porter on 12-27-2024 20 U/L <32 [facility] Nucleated red blood cell per centageOrdered By: Dionne White on 12-27-2024 Nucleated RBC/100 WBC (Bld) [Ratio] 0 % 0-5 [facility] Platelet countOrdered By: Lidya lepe [place] on 12-27-2024 Platelets (Bld) [#/Vol] 188 10*3/uL 150-450 [facility] Potassium measurement (mass/ volume)Ordered By: Dionne Porter on 12-27-2024 Potassium (Unsp spec) [Mass/Vol] 3.0 mmol/L Low 3.3-5.1 [facility] Comment on above: Hemolysis present, R esults could be affected. Previous reported result: 4.2 mmol/LEdited by: AUTOINS on 12/27/24:0835 AMENDED REPORT 12/27/24 0835 K previously reported as: 4.2 mmol/L Hemolysis present, Results could be affected. RBC Auto (Bld) [#/Vol]Ordere d By: Dionne Porter on 12-27-2024 RBC (Bld) [#/Vol] 3.14 10*6/uL Low 4.2-5.4 [facility] RESPIRATORY PANEL MOLECULARo n 12-27-2024 RP PANEL Normal [facility] Comment on above: Performed By: #### M 100.638 ####[facility] [address] [place], [place], [address] Respiratory Cultureon 2024 RESPC Specimen is mostly saliva and as such may not represent an accurate assessment of the patients' pulmonary/respiratory condition. CALLED TO Jose F GARCIA RN 12/27/24 1218 Iman Fierro. REPORT READ BACK BY [JAMILA GARCIA RN] Test not performed Normal [facility] Comment on above: Performed By: #### M 100.2000, M100.2400 ####[facility] [address] [place], [place], [address] Serum creatinine measurement (mass/volume)Ordered By: Dionne Proter on 12-27-2024 Creatinine [Mass/Vol] 0.61 mg/dL Low 0.70-1.20 [facility] Serum globulin measurementOr dered By: Dionne Porter on 12-27-2024 Globulin (S) [Mass/Vol] 2.1 g/dL Low 2.2-4.2 [facility] Serum glucose measurement (m ass/volume)Ordered By: Dionne Porter on 12-27-2024 Glucose [Mass/Vol] 151 mg/dL High 70-99 [facility] Serum or plasma alanine retana otransferase (ALT) measurementOrdered By: Dionne Porter on 12-27-2024 ALT [Catalytic activity/Vol] 20 U/L <35 [facility] Serum or plasma albumin kadi urement (mass/volume)Ordered By: Dionne Porter on 12-27-2024 Albumin [Mass/Vol] 3.8 g/dL 3.4-4.8 [facility] Serum or plasma albumin/glob ulin mass ratioOrdered By: Dionne Porter on 12-27-2024 Albumin/Globulin [Mass ratio] 1.8 {ratio} 0.9-2.4 [facility] Serum or plasma alkaline renetta sphatase measurementOrdered By: Dionne Porter on 12-27-2024 ALP [Catalytic activity/Vol] 46 U/L 35-104 [facility] Serum or plasma calcium kadi urement (mass/volume)Ordered By: Dionne Porter on 12-27-2024 Calcium [Mass/Vol] 8.9 mg/dL 7.6-11.0 [facility] Serum or plasma ferritin ranjith surement (mass/volume)Ordered By: Lynne Schafer on 12-27-2024 Ferritin [Mass/Vol] 35 ng/mL 22-378 [facility] Serum or plasma iron saturat ion measurement (mass fraction)Ordered By: Lynne Schafer on 12-27-2024 Iron saturation [Mass fraction] 6.0 % Low 13-59 [facility] Serum or plasma urea nitroge n measurement (mass/volume)Ordered By: Dionne Portre on 12-27-2024 Urea nitrogen [Mass/Vol] 18 mg/dL 4-19 [facility] Sodium levelOrdered By: Behzad mn [place] on 12-27-2024 Sodium [Moles/Vol] 140 mmol/L 133-145 [facility] Total proteinOrdered By: Arthur umn [place] on 12-27-2024 Protein [Mass/Vol] 5.9 g/dL 5.9-8.4 [facility] White blood cell (WBC) count Ordered By: Dionne Porter on 12-27-2024 WBC (Bld) [#/Vol] 5.4 10*3/uL 4.4-11.0 [facility] 12 Lead EKGon 12-26-2024 12 Lead EKG Normal [facility] Absolute lymphocyte countOrd ered By: ED PROVIDER on 12-26-2024 Lymphocytes Auto (Unsp spec) [#/Vol] 1.08 10*3/uL 0.83-4.51 [facility] Absolute neutrophil countOrd ered By: ED PROVIDER on 12-26-2024 Neutrophils (Bld) [#/Vol] 8.0 10*3/uL High 2.0-7.7 [facility] Anion gap in Serum or Plasma Ordered By: Marcel Zarate on 12-26-2024 Anion gap [Moles/Vol] 8 mmol/L 5-15 [facility] Assessment of wrist artery p atency prior to arterial punctureOrdered By: Dionne Porter on 12-26-2024 Arterial patency Wrist artery --pre arterial puncture Positive [facility] Automated lymphocyte count a s percentage of total leukocytesOrdered By: ED PROVIDER on 12-26-2024 Lymphocytes/100 WBC Auto (Unsp spec) 11.3 % Low 19-41 [facility] BUN/creatinine ratioOrdered By: Marcel Zarate on 12-26-2024 Urea nitrogen/Creatinine [Mass ratio] 25.1 mg/mg High 10-20 [facility] Basic Metabolic Profile (BMP )on 12-26-2024 BUN/CRE 25.1 RATIO High 10-20 [facility] Comment on above: Performed By: #### L 100.0100, L500.2500 ####[facility] [address] [place], [address] Calcium [Mass/Vol] 8.9 mg/dL Normal 7.6-11.0 [facility] Comment on above: Performed By: #### L 100.0100, L500.2500 ####[facility] [address] [place], [address] Chloride [Moles/Vol] 88 mmol/L Low 98-[address] [facility] Comment on above: Performed By: #### L 100.0100, L500.2500 ####[facility] [address] [place], [address] CO2 [Moles/Vol] 41.6 mmol/L High 21.0-32.0 [facility] Comment on above: Performed By: #### L 100.0100, L500.2500 ####[facility] [address] [place], [address] Creatinine [Mass/Vol] 0.64 mg/dL Low 0.70-1.20 [facility] Comment on above: Performed By: #### L 100.0100, L500.2500 ####[facility] [address] [place], [address] ECRCL 65.40 ml/min Normal 50-250 [facility] Comment on above: Performed By: #### L 100.0100, L500.2500 ####[facility] [address] [place], [address] GAP 8 Normal 5-15 [facility] Comment on above: Performed By: #### L 100.0100, L500.2500 ####[facility] [address] [place], [address] GFR/1.73 sq M.predicted among non-blacks MDRD (S/P/Bld) [Vol rate/Area] 96 mL/min/{1.73_m2} Normal >60 [facility] Comment on above: Result Comment: mL/m in/1.73m2 CKD-EPI Creatinine Equation (2020) Performed By: #### L 100.0100, L500.2500 ####[facility] [address] [place], [address] Glucose [Mass/Vol] 112 mg/dL High 70-99 [facility] Comment on above: Performed By: #### L 100.0100, L500.2500 ####[facility] [address], [address] Potassium [Moles/Vol] 4.0 mmol/L Normal 3.3-5.1 [facility] Comment on above: Performed By: #### L 100.0100, L500.2500 ####[facility] [address] [place], [address] Sodium [Moles/Vol] 137 mmol/L Normal 133-145 [facility] Comment on above: Performed By: #### L 100.0100, L500.2500 ####[facility] [address] [place], [address] Urea nitrogen [Mass/Vol] 16 mg/dL Normal 4-19 [facility] Comment on above: Performed By: #### L 100.0100, L500.2500 ####[facility] [address] [place], [address] Basophil percentageOrdered B y: ED PROVIDER on 12-26-2024 Basophils/100 WBC (Bld) 0.1 % 0-1 [facility] Blood Gases by CPSon 025 CHAO TEST Positive Normal [facility] Comment on above: Performed By: #### L 9000.0800 ####[facility] [address] [place], [address] BE > 30 High -2 to +2 [facility] Comment on above: Performed By: #### L 9000.0800 ####[facility] [address] [place], [address] Blood Gas Type ART Normal [facility] Comment on above: Performed By: #### L 9000.0800 ####[facility] [address] [place], [address] FI02 2.0 Normal [facility] Comment on above: Performed By: #### L 9000.0800 ####[facility] [address] [place], [address] HCO3 (Bld) [Moles/Vol] 55.5 mmol/L High 22-26 [facility] Comment on above: Performed By: #### L 9000.0800 ####[facility] [address] [place], [address] Mode Not entered Normal [facility] Comment on above: Performed By: #### L 9000.0800 ####[facility] [address] [place], [address] O2 Delivery Dev Cannula Normal [facility] Comment on above: Performed By: #### L 9000.0800 ####[facility] [address] [place], [address] pCO2 81.2 mmHg Invalid Interpretation Code 35-45 [facility] Comment on above: Performed By: #### L 9000.0800 ####[facility] [address] [place], [address] pH (Bld) 7.44 [pH] Normal 7.35-7.45 [facility] Comment on above: Performed By: #### L 9000.0800 ####[facility] [address] [place], [address] PO2 106 mmHG High 75-100 [facility] Comment on above: Performed By: #### L 9000.0800 ####[facility] [address] [place], [address] Read Back By Yes Normal [facility] Comment on above: Performed By: #### L 9000.0800 ####[facility] [address] [place], [address] Results To White Normal [facility] Comment on above: Performed By: #### L 9000.0800 ####[facility] [address] [place], [address] SITE L Radial Normal [facility] Comment on above: Performed By: #### L 9000.0800 ####[facility] [address] [place], [address] SO2 98 Normal 95-99 [facility] Comment on above: Performed By: #### L 9000.0800 ####[facility] [address] [place], [address] Time Given 20:42:58 Normal [facility] Comment on above: Performed By: #### L 9000.0800 ####[facility] [address] [place], [address] TOTAL CO2 > 50 Normal [facility] Comment on above: Performed By: #### L 9000.0800 ####[facility] [address] [place], [address] Blood base excess determinat ionOrdered By: Dionne Porter on 12-26-2024 Base excess Calc (BldV) [Moles/Vol] mmol/L High -2-2 [facility] Blood bicarbonate measuremen tOrdered By: Dionne Porter on 12-26-2024 HCO3 (Bld) [Moles/Vol] 55.5 mmol/L High 22-26 [facility] CBC W/Diff, Automatedon Absolute Lymph 1.08 X10 3/uL Normal 0.83-4.51 [facility] Comment on above: Performed By: #### L 100.0100, L500.2500 ####[facility] [address] [place], [address] Absolute Neut 8.0 X10 3/uL High 2.0-7.7 [facility] Comment on above: Performed By: #### L 100.0100, L500.2500 ####[facility] [address] [place], [address] Basophils/100 WBC (Bld) 0.1 % Normal 0-1 [facility] Comment on above: Performed By: #### L 100.0100, L500.2500 ####[facility] [address] [place], [address] Eosinophils/100 WBC (Bld) 0.1 % Normal 0-5 [facility] Comment on above: Performed By: #### L 100.0100, L500.2500 ####[facility] [address] [place], [address] Erythrocyte distribution width (RBC) [Ratio] 14.0 % Normal 11.6-14.6 [facility] Comment on above: Performed By: #### L 100.0100, L500.2500 ####[facility] [address] [place], [address] Hematocrit (Bld) [Volume fraction] 29.0 % Low 37-47 [facility] Comment on above: Performed By: #### L 100.0100, L500.2500 ####[facility] [address] [place], [address] Hemoglobin (Bld) [Mass/Vol] 9.2 g/dL Low 12.0-15.0 [facility] Comment on above: Performed By: #### L 100.0100, L500.2500 ####[facility] [address] [place], [address] IG% 0.800 Normal 0.0-0.9 [facility] Comment on above: Result Comment: IG% - Immature Granulocytes (promyelocytes, myelocytes andmetamyelocytes) > 1% indicates that a LEFT SHIFT is Present. Performed By: #### L 100.0100, L500.2500 ####[facility] [address] [place], [address] Lymphocytes/100 WBC (Bld) 11.3 % Low 19-41 [facility] Comment on above: Performed By: #### L 100.0100, L500.2500 ####[facility] [address] [place], [address] MCH (RBC) [Entitic mass] 26.8 pg Low 27.0-32.0 [facility] Comment on above: Performed By: #### L 100.0100, L500.2500 ####[facility] [address] [place], [address] MCHC (RBC) [Mass/Vol] 31.7 g/dL Low 32-36 [facility] Comment on above: Performed By: #### L 100.0100, L500.2500 ####[facility] [address] [place], [address] MCV (RBC) [Entitic vol] 84.5 fL Normal 81-99 [facility] Comment on above: Performed By: #### L 100.0100, L500.2500 ####[facility] [address] [place], [address] Monocytes/100 WBC (Bld) 4.5 % Normal 0-10 [facility] Comment on above: Performed By: #### L 100.0100, L500.2500 ####[facility] [address] [place], [address] Neutrophils/100 WBC (Bld) 83.2 % High 47-70 [facility] Comment on above: Performed By: #### L 100.0100, L500.2500 ####[facility] [address] [place], [address] Nucleated RBC (Bld) [#/Vol] 0 10*3/uL Normal 0-5 [facility] Comment on above: Performed By: #### L 100.0100, L500.2500 ####[facility] [address] [place], [address] Platelet mean volume (Bld) [Entitic vol] 9.3 fL Normal 6.2-12.0 [facility] Comment on above: Performed By: #### L 100.0100, L500.2500 ####[facility] [address] [place], [address] Platelets (Bld) [#/Vol] 219 10*3/uL Normal 150-450 [facility] Comment on above: Performed By: #### L 100.0100, L500.2500 ####[facility] [address] [place], [address] RBC (Bld) [#/Vol] 3.43 10*6/uL Low 4.2-5.4 [facility] Comment on above: Performed By: #### L 100.0100, L500.2500 ####[facility] [address] [place], [address] RDW SD 43.0 fl Normal 35.1-43.9 [facility] Comment on above: Performed By: #### L 100.0100, L500.2500 ####[facility] [address] [place], [address] WBC (Bld) [#/Vol] 9.6 10*3/uL Normal 4.4-11.0 [facility] Comment on above: Performed By: #### L 100.0100, L500.2500 ####[facility] [address] [place], [address] CNPNon 12-26-2024 CNPN Telephone (INTMWS) DENIA GONZALEZ ([id number]) 1955 F Date Time Provider Department 12/26/24 YOSEPH FALL During your visit today, we recorded the following information about you: Ban Villafana LPN 12/26/2024 9:57 AM Signed Electronic PA rec'd and completed. Prior authorization approved Payer: [employer] [phone] Note from payer: CaseId:[id number];Stat us:Approved;Review Type:Prior Auth;Coverage Start Date:11/22/2024;Cover age End [...] to its destination. To be filled at: [facility] [address] [place] [address] [address] [facility] - [phone] Allergies As of Date: 12/26/2024 (No Known Allergies) Date Reviewed: 11/22/2024 Reviewed by: Gregor Fernandez APRN.ENGINE MECHANIC - Fully Assessed Reason for Visit: Insurance [...] directed. Dx: COPD J44.9 - Nebulizer Accessories [facility] Mask and supplies as needed - PULSE OXIMETER [facility] Use as directed to check oxygen saturation level - ammonium lactate (AMLACTIN) 12 % lotion Apply 1 application to affected area as needed for Dry Skin. - losartan (COZAAR) 50 mg tablet Take 0.5 tablets by mouth once daily. - OXYGEN, HOME THERAPY, 2.5 L/min by Nasal Cannula route continuous. Use as directred - Disposable Gloves (DISPOSABLE LATEX-FREE GLOVES) [facility] 1 Box once every month. ICD 10: [...] 08/11/ (more content not included)... Normal [facility] Carbon dioxide, total [Moles /volume] in Central venous bloodOrdered By: Marcel Zarate on 12-26-2024 CO2 [Moles/Vol] 41.6 mmol/L High 21.0-32.0 [facility] Chest 1 View (Portable)on Chest 1 View (Portable) Normal [facility] Chloride assayOrdered By: Seun Zarate on 12-26-2024 Chloride [Moles/Vol] 88 mmol/L Low 98-[address] [facility] Emergency Department Summary on 12-26-2024 Emergency Department Summary Normal [facility] Eosinophil percentageOrdered By: ED PROVIDER on 12-26-2024 Eosinophils/100 WBC (Bld) 0.1 % 0-5 [facility] Erythrocyte distribution wid th ratioOrdered By: ED PROVIDER on 12-26-2024 Erythrocyte distribution width (RBC) [Ratio] 14.0 % 11.6-14.6 [facility] Erythrocyte distribution wid th standard deviationOrdered By: ED PROVIDER on 12-26-2024 Erythrocyte distribution width (RBC) [Ratio] 43.0 fl 35.1-43.9 [facility] Ferritinon 12-26-2024 Ferritin [Mass/Vol] 22 ng/mL Normal 22-378 [facility] Comment on above: Order Comment: Comme nts: may add to ED labs Performed By: #### L 503.6550, L503.6030, L501.5200 ####[facility] [address] [place], [address] Glomerular filtration rate ( GFR) estimation/1.73 sq m using serum, plasma, or whole bOrdered By: Marcel Zarate on 12-26-2024 GFR/1.73 sq M.predicted among non-blacks MDRD (S/P/Bld) [Vol rate/Area] 96 mL/min/{1.73_m2} >60 [facility] Comment on above: mL/min/1.73m2 CKD-EP I Creatinine Equation (2020) Gram stainOrdered By: Dionne Porter on 12-26-2024 Microscopic observation Gram stain Nom (Unsp spec) [facility] H AND P Exam - Hospitaliston 12-26-2024 H&P Exam - Hospitalist Normal [facility], Hemoglobin AND Hematocri ton 12-26-2024 Hematocrit (Bld) [Volume fraction] 26.5 % Low 37-47 [facility] Comment on above: Performed By: #### L 100.0600 ####[facility] [address] [place], [place], [id number](766) Hemoglobin (Bld) [Mass/Vol] 8.5 g/dL Low 12.0-15.0 [facility] Comment on above: Performed By: #### L 100.0600 ####[facility] [address] [place], [address](109) Hematocrit Auto (Bld) [Volum e fraction]Ordered By: ED PROVIDER on 12-26-2024 Hematocrit (Bld) [Volume fraction] 29.0 % Low 37-47 [facility] Hemoglobin measurementOrdere d By: ED PROVIDER on 12-26-2024 Hemoglobin (Bld) [Mass/Vol] 9.2 g/dL Low 12.0-15.0 [facility] Immature granulocytes/100 WB C Auto (Bld)Ordered By: ED PROVIDER on 12-26-2024 Immature granulocytes/100 WBC (Bld) 0.800 % 0.0-0.9 [facility] Comment on above: IG% - Immature Granu locytes (promyelocytes, myelocytes and metamyelocytes) > 1% indicates that a LEFT SHIFT is Present. Iron+Iron Binding Capacityon 12-26-2024 Iron [Mass/Vol] 25 ug/dL Low 50-170 [facility] Comment on above: Order Comment: Comme nts: may add to ED labs Performed By: #### L 503.6550, L503.6030, L501.5200 ####[facility] [address] [place], [address] IRON SATURATION 8.0 Low 13-59 [facility] Comment on above: Order Comment: Comme nts: may add to ED labs Performed By: #### L 503.6550, L503.6030, L501.5200 ####[facility] [address] [place], [address] TIBC 313 ug/dL Normal 250-450 [facility] Comment on above: Order Comment: Comme nts: may add to ED labs Performed By: #### L 503.6550, L503.6030, L501.5200 ####[facility] [address] [place], [address] UIBC 288 ug/dL Normal 228-428 [facility] Comment on above: Order Comment: Comme nts: may add to ED labs Performed By: #### L 503.6550, L503.6030, L501.5200 ####[facility] [address] [place], [address] L501.4021on 12-26-2024 Trop T High Sen 25 ng/L High <=14 [facility] Comment on above: Performed By: #### L 501.4021 ####[facility] [address] [place], [address] L509.7001on 12-26-2024 Procalcitonin 0.04 ng/mL Normal <=0.10 [facility] Comment on above: Result Comment: Inte rpretation:<0.10-0.25 ng/mL: Antibiotic therapy discouraged. Bacterialinfection unlikely.0.25-0.50 ng/mL: Antibiotic therapy encouraged. Bacterialinfection possible.>0.50 ng/mL: Antibiotic therapy strongly encouraged.Suggestive of presence of bacterial infection.PCT should always be interpreted in the clinical context ofthe patient. Therefore, clinicians should use the PCTresults in conjunction with other laboratory findings andclinical signs of the patient. Performed By: #### L 509.7001 ####[facility] [address] [facility] [place], [address] MCV (mean corpuscular volume ) determinationOrdered By: ED PROVIDER on 12-26-2024 MCV (RBC) [Entitic vol] 84.5 fL 81-99 [facility] Magnesiumon 12-26-2024 Magnesium [Mass/Vol] 1.9 mg/dL Normal 1.5-2.[address] [facility] Comment on above: Order Comment: Comme nts: may add to ED labs Performed By: #### L 503.6550, L503.6030, L501.5200 ####[facility] [address] [place], [place], [address] Magnesium measurement (mass/ volume)Ordered By: Dionne Porter on 12-26-2024 Magnesium (Unsp spec) [Mass/Vol] 1.9 mg/dL 1.5-2.2 [facility] Mean corpuscular hemoglobin (MCH) determinationOrdered By: ED PROVIDER on 12-26-2024 MCH (RBC) [Entitic mass] 26.8 pg Low 27.0-32.0 [facility] Mean corpuscular hemoglobin concentration (MCHC) determinationOrdered By: ED PROVIDER on 12-26-2024 MCHC (RBC) [Mass/Vol] 31.7 g/dL Low 32-36 [facility] Mean platelet volume determi nationOrdered By: ED PROVIDER on 12-26-2024 Platelet mean volume (Bld) [Entitic vol] 9.3 fL 6.2-12.0 [facility] Measurement, pHOrdered By: Sheba Porter on 12-26-2024 pH (Unsp spec) 7.44 [pH] 7.35-7.45 [facility] Microbial respiratory cultur eOrdered By: Dionne Porter on 12-26-2024 Microorganism identified Cx Nom (Unsp spec) [facility] Monocyte percentageOrdered B y: ED PROVIDER on 12-26-2024 Monocytes/100 WBC (Bld) 4.5 % 0-10 [facility] Neutrophil percentageOrdered By: ED PROVIDER on 12-26-2024 Neutrophils/100 WBC (Bld) 83.2 % High 47-70 [facility] No Panel InformationOrdered By: Dionne Porter on 12-26-2024 Bld Gas Crit Called To/Read Back By Yes [facility] Blood Gas Notified Time 20:42:58 [facility] Blood Gas Notified Whom [place] [facility] Blood Gas Sample Site L Radial [facility] Blood Gas Specimen Type ART [facility] Blood Gas Vent Mode Not entered [facility] Oxygen Delivery Device Cannula [facility] L Radial [facility] Not entered [facility] Cannula [facility] 20:42:58 [facility] Yes [facility] Nucleated red blood cell per centageOrdered By: ED PROVIDER on 12-26-2024 Nucleated RBC/100 WBC (Bld) [Ratio] 0 % 0-5 [facility] Platelet countOrdered By: ED PROVIDER on 12-26-2024 Platelets (Bld) [#/Vol] 219 10*3/uL 150-450 [facility] Potassium measurement (mass/ volume)Ordered By: Marcel Zarate on 12-26-2024 Potassium (Unsp spec) [Mass/Vol] 4.0 mmol/L 3.3-5.1 [facility] Procalcitonin [Mass/volume] in Serum or Plasma by ImmunoassayOrdered By: Dionne Porter on 12-26-2024 Procalcitonin IA [Mass/Vol] 0.04 ng/mL <0.11 [facility] Comment on above: Interpretation:<0.10 -0.25 ng/mL: Antibiotic [...] (Bld) [#/Vol] 3.43 10*6/uL Low 4.2-5.4 [facility] Respiratory pathogens detect ion panel by molecular detection methodOrdered By: Dionne Porter on 12-26-2024 Respiratory pathogens DNA and RNA panel ASPEN+probe (Resp) [facility] Serum creatinine measurement (mass/volume)Ordered By: Marcel Zarate on 12-26-2024 Creatinine [Mass/Vol] 0.64 mg/dL Low 0.70-1.20 [facility] Serum glucose measurement (m ass/volume)Ordered By: Marcel Zarate on 12-26-2024 Glucose [Mass/Vol] 112 mg/dL High 70-99 [facility] Serum or plasma calcium kadi urement (mass/volume)Ordered By: Marcel Zarate on 12-26-2024 Calcium [Mass/Vol] 8.9 mg/dL 7.6-11.0 [facility] Serum or plasma urea nitroge n measurement (mass/volume)Ordered By: Marcel Zarate on 12-26-2024 Urea nitrogen [Mass/Vol] 16 mg/dL 4-19 [facility] Sodium levelOrdered By: Haider Zarate on 12-26-2024 Sodium [Moles/Vol] 137 mmol/L 133-145 [facility] Troponin T HS 2 HRon 025 Trop T High Sen 25 ng/L High <=14 [facility] Comment on above: Performed By: #### L 499.0042 ####[facility] [address] [place], [address] Troponin T HS 4 HRon 025 Trop T High Sen 26 ng/L High <=14 [facility] Comment on above: Performed By: #### L 499.0043 ####[facility] [address] [place], [address] Troponin T.cardiac [Mass/vol ume] in Serum or Plasma by High sensitivity methodOrdered By: Marcel Zarate on 12-26-2024 Troponin T.cardiac High sensitivity method [Mass/Vol] 26 ng/L High <14 [facility] Troponin T.cardiac High sensitivity method [Mass/Vol] 25 ng/L High <14 [facility] Troponin T.cardiac High sensitivity method [Mass/Vol] 25 ng/L High <14 [facility] Comment on above: Delta: 23 on 531 White blood cell (WBC) count Ordered By: ED PROVIDER on 12-26-2024 WBC (Bld) [#/Vol] 9.6 10*3/uL 4.4-11.0 [facility] 12[facility]22-20[facility] DENIA GONZALEZ ([id number]) 1955 F Date Time Provider Department 12/22/24 [facility] During your visit today, we [...] Date Reviewed: 11/22/2024 Reviewed by: Gregor Fernandez APRN.ENGINE MECHANIC - Fully Assessed Reason for Visit: Patient [...] directed. Dx: COPD J44.9 - Nebulizer Accessories [facility] Mask and supplies as needed - PULSE OXIMETER [facility] Use as directed to check oxygen saturation level - ammonium lactate (AMLACTIN) 12 % lotion Apply 1 application to affected area as needed for Dry Skin. - losartan (COZAAR) 50 mg tablet Take 0.5 tablets by mouth once daily. - OXYGEN, HOME THERAPY, 2.5 L/min by Nasal Cannula route continuous. Use as directred - Disposable Gloves (DISPOSABLE LATEX-FREE GLOVES) [facility] 1 Box once every month. ICD 10: [...] [C34. (more content not included)... Normal [facility] CBC W Auto Differential pane l (Bld)on 12-15-2024 Basophils (Bld) [#/Vol] 0 10*3/uL 0.0 - 0.2 10*3/uL [facility] [employer] [facility] Basophils/100 WBC (Bld) 0.1 % 0.0 - 2.0 % [employer] [employer] [facility] Eosinophils (Bld) [#/Vol] 0 10*3/uL 0.0 - 0.5 10*3/uL [facility] [employer] [facility] Eosinophils/100 WBC (Bld) 0.1 % 0.0 - 6.0 % [facility] [employer] [facility] Erythrocyte distribution width (RBC) [Ratio] 13.6 % 11.5 - 15.0 % [facility] [employer] [facility] Hematocrit (Bld) [Volume fraction] 33.3 % Low 35.0 - 47.0 % [employer] [employer] [facility] Hemoglobin (Bld) [Mass/Vol] 10.5 g/dL Low 11.7 - 16.0 g/dL [employer] [employer] [facility] Immature granulocytes (Bld) [#/Vol] 0.1 10*3/uL High NINF - 0.1 10*3/uL [facility] [employer] [facility] Immature granulocytes/100 WBC (Bld) 0.8 % 0.0 - 2.0 % [facility] [employer] [facility] Interpretation and review of laboratory results Abnormal [employer] [employer] [facility] Lymphocytes (Bld) [#/Vol] 0.8 10*3/uL Low 1.0 - 4.3 10*3/uL [facility] [employer] [facility] Lymphocytes/100 WBC (Bld) 9.8 % Low 15.0 - 45.0 % [facility] MCH (RBC) [Entitic mass] 26.3 pg 26. 0 - 34.0 pg [facility] MCHC (RBC) [Mass/Vol] 31.5 % 30.5 - 36.0 % [facility] MCV (RBC) [Entitic vol] 83.5 fL 77.0 - 99.0 fL [facility] Monocytes (Bld) [#/Vol] 0.2 10*3/uL 0.0 - 0.9 10*3/uL [facility] Monocytes/100 WBC (Bld) 1.9 % Low 5.0 - 13.0 % [facility] Neutrophils (Bld) [#/Vol] 7.3 10*3/uL 1.8 - 7.5 10*3/uL [facility] Neutrophils/100 WBC (Bld) 87.3 % High 38.0 - 82.0 % [facility] Nucleated RBC/100 WBC (Bld) [Ratio] 0 % [facility] Platelet mean volume (Bld) [Entitic vol] 10.2 fL 9.0 - 12.7 fL [facility] Platelets (Bld) [#/Vol] 239 10*3/uL 140 - 440 10*3/uL [facility] RBC (Bld) [#/Vol] 3.99 10*6/uL 3.80 - 5.2 0 10*6/uL [facility] WBC (Bld) [#/Vol] 8.3 10*3/uL 3.6 - 10.7 10*3/uL [facility] CBC WITH AUTO DIFFERENTIALon 12-15-2024 Basophils (Bld) [#/Vol] 0.0 10*3/uL Normal 0.0-0.[address] [facility] Comment on above: Performed By: #### L [id number] ####Train System Operator: EDDA MCKINLEY ([phone])[facility])[address] [place] [address] Basophils/100 WBC (Bld) 0.1 % Normal 0.0-2.0 [facility] Comment on above: Performed By: #### L [id number] ####Train System Operator: EDDA MCKINLEY ([phone])[facility] [address] Eosinophils (Bld) [#/Vol] 0.0 10*3/uL Normal 0.0-0.[address] [facility] Comment on above: Performed By: #### L [id number] ####Train System Operator: EDDA MCKINLEY ([id number])[facility])[address] [place] [address] Eosinophils/100 WBC (Bld) 0.1 % Normal 0.0-6.[address] [facility] Comment on above: Performed By: #### L [id number] ####Train System Operator: EDDA MCKINLEY ([id number])[address] Erythrocyte distribution width (RBC) [Ratio] 13.6 % Normal 11.5-15.[address] [facility] Comment on above: Performed By: #### L [id number] ####Train System Operator: EDDA MCKINLEY ([id number])[address] Hematocrit (Bld) [Volume fraction] 33.3 % Low 35.0-47.[address] [facility] Comment on above: Performed By: #### L [id number] ####Train System Operator: EDDA MCKINLEY ([phone])[address] Hemoglobin (Bld) [Mass/Vol] 10.5 g/dL Low 11.7-16.[address] [facility] Comment on above: Performed By: #### L [id number] ####Train System Operator: EDDA MCKINLEY ([phone])[address] IMMATURE GRANS % 0.8 % Normal 0.0-2.[address] [facility] Comment on above: Performed By: #### L [id number] ####Train System Operator: EDDA MCKINLEY ([phone])[address] IMMATURE GRANS ABSOLUTE 0.1 10*3/uL High <0.[address] [facility] Comment on above: Performed By: #### L [id number] ####Train System Operator: EDDA MCKINLEY ([id number])[facility])[address] [place] [address] Lymphocytes (Bld) [#/Vol] 0.8 10*3/uL Low 1.0-4.[address] [facility] Comment on above: Performed By: #### L [id number] ####Train System Operator: EDDA MCKINLEY ([id number])[facility])[address] [place] [address] Lymphocytes/100 WBC (Bld) 9.8 % Low 15.0-45.[address] [facility] Comment on above: Performed By: #### L [id number] ####Train System Operator: EDDA MCKINLEY ([id number])[facility])[address] [place] [address] MCH (RBC) [Entitic mass] 26.3 pg Normal 26.0-34.[address] [facility] Comment on above: Performed By: #### L [id number] ####Train System Operator: EDDA MCKINLEY ([id number])[facility])[address] [place] [address] MCHC 31.5 % Normal 30.5-36.[address] [facility] Comment on above: Performed By: #### L [id number] ####Train System Operator: EDDA MCKINLEY ([id number])[facility])[address] [place] [address] MCV (RBC) [Entitic vol] 83.5 fL Normal 77.0-99.0 [facility] Comment on above: Performed By: #### L [id number] ####Train System Operator: EDDA MCKINLEY ([phone])[facility])[address] [place] [address] Monocytes (Bld) [#/Vol] 0.2 10*3/uL Normal 0.0-0.[address] [facility] Comment on above: Performed By: #### L [id number] ####Train System Operator: EDDA MCKINLEY ([id number])[facility])[address] [place] [address] [place] Monocytes/100 WBC (Bld) 1.9 % Low 5.0-13.0 [facility] Comment on above: Performed By: #### L [id number] ####Train System Operator: EDDA MCKINLEY ([id number])[facility])[address] [place] [address] NEUTROPHILS ABSOLUTE 7.3 10*3/uL Normal 1.8-7.5 [facility] Comment on above: Performed By: #### L [id number] ####Train System Operator: EDDA MCKINLEY ([id number])[facility])[address] [place] [address] Neutrophils/100 WBC (Bld) 87.3 % High 38.0-82.[address] [facility] Comment on above: Performed By: #### L [id number] ####Train System Operator: EDDA MCKINLEY ([phone])[facility])[address] [place] [address] NRBC 0.0 /100 WBCs Normal 0.0-2.[address] [facility] SHS Comment on above: Performed By: #### L [id number] ####Train System Operator: EDDA MCKINLEY ([id number])[facility] ([facility])[address] [place] [address] Platelet mean volume (Bld) [Entitic vol] 10.2 fL Normal 9.0-12.[address] [facility] Comment on above: Performed By: #### L [id number] ####Train System Operator: EDDA MCKINLEY ([id number])[facility] ([facility])[address] [place] [address] [place] Platelets (Bld) [#/Vol] 239 10*3/uL Normal 140-[address] [facility] Comment on above: Performed By: #### L [id number] ####Train System Operator: EDDA MCKINLEY ([id number])[facility] ([facility])[address] [place] [address] RBC (Bld) [#/Vol] 3.99 10*6/uL Normal 3.80-5.[address] [facility] Comment on above: Performed By: #### L [id number] ####Train System Operator: EDDA MCKINLEY ([id number])[facility] ([facility])[address] [place] [address] WBC (Bld) [#/Vol] 8.3 10*3/uL Normal 3.6-10.7 [facility] Comment on above: Performed By: #### L [id number] ####Train System Operator: EDDA MCKINLEY ([id number])[facility])[address] [place] [address] COMPREHENSIVE METABOLIC PANE Eddie 12-15-2024 Albumin [Mass/Vol] 3.7 g/dL Normal 3.4-4.8 [facility] Comment on above: Performed By: #### L [id number] ####Train System Operator: EDDA MCKINLEY ([id number])[facility] ([facility])[address] [place] [address] ALP [Catalytic activity/Vol] 49 U/L Normal 40-150 [facility] Comment on above: Performed By: #### L [id number] ####Train System Operator: EDDA MCKINLEY ([id number])[facility])[address] [place] [address] ALT [Catalytic activity/Vol] 16 U/L Normal <[address] [facility] Comment on above: Performed By: #### L [id number] ####Train System Operator: EDDA MCKINLEY ([id number])[facility])[address] [place] [address] Anion gap [Moles/Vol] 7 mmol/L Normal 3-13 [facility] Comment on above: Performed By: #### L [id number] ####Train System Operator: EDDA MCKINLEY ([id number])[facility])[address] [place] [address] AST [Catalytic activity/Vol] 18 U/L Normal <[address] [facility] Comment on above: Performed By: #### L [id number] ####Train System Operator: EDDA MCKINLEY ([phone])[facility])[address] [place] [address] Bilirubin [Mass/Vol] 0.4 mg/dL Normal <1.2 [facility] Comment on above: Performed By: #### L [id number] ####Train System Operator: EDDA MCKINLEY ([phone])[facility])[address] [place] [address] Calcium [Mass/Vol] 8.6 mg/dL Low 8.8-10.0 [facility] Comment on above: Performed By: #### L [id number] ####Train System Operator: EDDA MCKINLEY ([id number])[facility])[address] [place] [address] Chloride [Moles/Vol] 88 mmol/L Low 98-107 [facility] Comment on above: Performed By: #### L [id number] ####Train System Operator: EDDA MCKINLEY ([id number])[facility] ([facility])[address] [place] [address] CO2 [Moles/Vol] 40 mmol/L High 23-31 [facility] Comment on above: Performed By: #### L [id number] ####Train System Operator: EDDA MCKINLEY ([id number])[facility])[address] [place] [address] Creatinine [Mass/Vol] 0.72 mg/dL Normal 0.57-1.11 [facility] Comment on above: Performed By: #### L [id number] ####Train System Operator: EDDA MCKINLEY ([id number])[facility])[address] [place] [address] GLOMERULAR FILTRATION RATE ML/MIN/1.73 SQ M.PREDICTED >90.0 Normal >60.0 [facility] Comment on above: Result Comment: Calc ulation based on the Chronic Kidney Disease Epidemiology Collaboration (CKD-EPI) equation refit without adjustment for race Performed By: #### L [id number] ####Train System Operator: EDDA MCKINLEY ([id number])[facility] ([facility])[address] [place] [address] Glucose [Mass/Vol] 114 mg/dL Normal 82-115 [facility] Comment on above: Performed By: #### L [id number] ####Train System Operator: EDDA MCKINLEY ([id number])[facility] ([facility])[address] [place] [address] Potassium [Moles/Vol] 4.3 mmol/L Normal 3.5-5.1 [facility] Comment on above: Result Comment: [facility] potassium values may be up to 0.5 mmol/L lower than serum values. Performed By: #### L [id number] ####Train System Operator: EDDA MCKINLEY ([id number])[facility] ([facility])[address] [place] [address] Protein [Mass/Vol] 6.5 g/dL Normal 6.4-8.3 [facility] Comment on above: Performed By: #### L [id number] ####Train System Operator: EDDA MCKINLEY ([id number])[facility] ([facility])[address] [place] [address] Sodium [Moles/Vol] 135 mmol/L Low 136-145 [facility] Comment on above: Performed By: #### L [id number] ####Train System Operator: EDDA MCKINLEY ([id number])[facility])[address] [place] [address] Urea nitrogen [Mass/Vol] 19 mg/dL Normal 9-23 [facility] Comment on above: Performed By: #### L [id number] ####Train System Operator: EDDA MCKINLEY ([id number])[facility] ([facility])[address] [place] [address] Comprehensive metabolic 1998 panelon 12-15-2024 Albumin [Mass/Vol] 3.7 g/dL 3.4 - 4.8 g/dL [facility] ALP [Catalytic activity/Vol] 49 U/L 40 - 150 U/L [facility] ALT [Catalytic activity/Vol] 16 U/L NINF - 30 U/L [facility] Anion gap [Moles/Vol] 7 mmol/L 3 - 13 mmol/L [facility] AST [Catalytic activity/Vol] 18 U/L NINF - 34 U/L [facility] Bilirubin [Mass/Vol] 0.4 mg/dL NINF - 1.2 mg/dL [facility] Calcium [Mass/Vol] 8.6 mg/dL Low 8.8 - 10. 0 mg/dL [facility] Chloride [Moles/Vol] 88 mmol/L Low 98 - 10 7 mmol/L [facility] CO2 [Moles/Vol] 40 mmol/L High 23 - 31 mmol/L [facility] Creatinine [Mass/Vol] 0.72 mg/dL 0.57 - 1.11 mg/dL [facility] GFR/1.73 sq M.predicted (S/P/Bld) [Vol rate/Area] - PINF [facility] Comment on above: Calculation based on the Chronic Kidney Disease Epidemiology Collaboration (CKD-EPI) equation refit without adjustment for race Glucose [Mass/Vol] 114 mg/dL 82 - 115 mg/dL [facility] Interpretation and review of laboratory results Abnormal [facility] Potassium [Moles/Vol] 4.3 mmol/L 3.5 - 5.1 mmol/L [facility] Comment on above: Plasma potassium abdulkadir ues may be up to 0.5 mmol/L lower than serum values. Protein [Mass/Vol] 6.5 g/dL 6.4 - 8.3 g/dL [facility] Sodium [Moles/Vol] 135 mmol/L Low 136 - 145 mmol/L [facility] Urea nitrogen [Mass/Vol] 19 mg/dL 9 - 23 mg/d L [facility] Office Visiton 12-15-2024 Follow-up visit [id number] Kai Gonzalez 1955 F Date Provider Department Center 12/15/2024 [id number] CORBETT [facility] [address] Family History Problem Relation Age of Onset Hypertension Mother Throat cancer Mother Hypertension Father Stomach cancer Father Family Status - Relation Status Age at Mother Father Level of Service:73809 [place] OFFICE/OP CONSLTJ NEW/EST PT HIGH MDM 55 MINUTES Reason for Visit and Comments: Cardiac Valve Problem [1334] New Patient [542] - Heart Valve Clinic Normal [facility] System [facility] Follow-up visit [id number] Kai Gonzalez 1955 F Date Provider Department Center 12/15/2024 [id number] SHEA [facility] [address] Family History Problem Relation Age of Onset Hypertension Mother Throat cancer Mother Hypertension Father Stomach cancer Father Family Status - Relation Status Age at Mother Father Level of Service:79912 [place] OFFICE/OUTPATIENT NEW HIGH MDM 60 MINUTES Reason for Visit and Comments: Cardiac Valve Problem [1334] New Patient [542] - Heart Valve Clinic Normal [facility] Progress Noteon 12-15-2024 Progress Note [facility]: Cardiothoracic Surgery Multidisciplinary Heart Valve Clinic Date: 12/14/24 Patient:Denia Gonzalez 1955 69 y.o. female [id number] Subjective: HPI: Denia Gonzalez 69 y.o. referred by SADIQ Aguilar is being evaluated for aortic valve stenosis. Echocardiogram completed on 10/02/24 showed severe aortic valve stenosis with peak/mean gradients 75/50 mm Hg, SASHA 0.85 cm^2. Per note, patient with past medical history significant for COPD, chronic hypoxic respiratory failure, on home O2, HTN, smoker. Patient was admitted to [facility] 09/29/24 for respiratory failure and newly [...] a past medical history of A-fib (CMS/HCC) ([facility]), Anxiety, Aortic stenosis, Asthma, Chronic respiratory failure ([facility]), COPD (chronic obstructive pulmonary disease) ([facility]), Depressed, History of ETOH abuse, HTN (hypertension), [...] for mu (more content not included)... Normal [facility] Progress Note [facility] - [address] [address] Dept: [phone] Dept Visit type: New : 1955 Reason for Visit: New patient, Heart Valve Clinic Assessment and Plan 1. Preop cardiovascular exam - CBC auto differential - Comprehensive metabolic panel - Case Request Bilingual Sales Assistant: Left and right heart cath / [...] (degenerative, rheumatic, (more content not included)... Normal [facility] Progress Noteon 12-14-2024 Progress Note Denia Gonzalez 69 y.o. referred by SADIQ Aguilar is being evaluated for aortic valve stenosis. Echocardiogram completed on 10/02/24 showed severe aortic valve stenosis with peak/mean gradients 75/50 mm Hg, SASHA 0.85 cm^2. Per note, patient with past medical history significant for COPD, chronic hypoxic respiratory failure, on home O2, HTN, smoker. Patient was admitted to [facility] 09/29/24 for respiratory failure and newly [...] Migraines RLS (restless legs syndrome) Normal [facility] 12-08-2024 CNPN Telephone (INTMWS) DENIA GONZALEZ ([id number]) 1955 F Date Time Provider Department 12/08/24 YOSEPH FALL INTWS During your visit today, we recorded the following information about you: Ban Villafana LPN 12/08/2024 10:31 AM Signed Electronic PA rec'd and completed for cyclobenzaprine (FLEXERIL) 10 mg tablet Ban Villafana LPN 12/08/2024 10:43 AM Signed prior authorization approved Payer: [employer] [facility] [employer] [phone] Note from payer: CaseId:[id number];Stat us:Approved;Review Type:Prior Auth;Coverage Start Date:11/08/2024;Cover age End [...] to its destination. To be filled at: [facility] [address] [place] [address] [address] - [phone] Pharmacy notified. Allergies As of Date: 12/08/2024 (No Known Allergies) Date Reviewed: 11/22/2024 Reviewed by: Gregor Fernandez APRN.ENGINE MECHANIC - Fully Assessed Reason for Visit: Insurance Authorization [[id number]] Prescriptions as of 12/08/2024 - cyclobenzaprine (FLEXERIL) [...] directed. Dx: COPD J44.9 - Nebulizer Accessories [facility] Mask and supplies as needed - PULSE OXIMETER [facility] Use as directed to check oxygen saturation level - ammonium lactate (AMLACTIN) 12 % lotion Apply 1 application to affected area as needed for Dry Skin. - losartan (COZAAR) 50 mg tablet Take 0.5 tablets by mouth once daily. - OXYGEN, HOME THERAPY, 2.5 L/min by Nasal Cannula route continuous. Use as directred - Disposable Gloves (DISPOSABLE LATEX-FREE GLOVES) [facility] 1 Box once every month. ICD 10: [...] Other (more content not included)... Normal [facility] 36on 11-28-2024 36 Chart made and STOCKROOM KEEPER packet mailed Normal [facility] CNPNon 11-27-2024 CNPN Telephone (FAMPWS) DENIA GONZALEZ ([id number]) 1955 F Date Time Provider Department 11/27[facility] During your visit today, we recorded the following information about you: Padmini Abbott RN 11/27/2024 2:16 PM Signed Rafa with [facility] Nursing calling and states he plans to add 1 more visit to pt's plan of care, to discharge patient. No call back needed if provider agreeable with this. KAREN Robledo Mark D, MD 11/27/2024 3:12 PM Signed Noted and agree Yoseph Fall MD Allergies As of Date: 11/27/2024 (No Known Allergies) Date Reviewed: 11/22/2024 Reviewed by: Gregor Fernandez APRN.ENGINE MECHANIC - Fully Assessed Reason for Visit: [facility] Nursing Call [Other] Prescriptions as of [...] directed. Dx: COPD J44.9 - Nebulizer Accessories [facility] Mask and supplies as needed - PULSE OXIMETER [facility] Use as directed to check oxygen saturation level - ammonium lactate (AMLACTIN) 12 % lotion Apply 1 application to affected area as needed for Dry Skin. - losartan (COZAAR) 50 mg tablet Take 0.5 tablets by mouth once daily. - OXYGEN, HOME THERAPY, 2.5 L/min by Nasal Cannula route continuous. Use as directred - Disposable Gloves (DISPOSABLE LATEX-FREE GLOVES) [facility] 1 Box once every month. ICD 10: [...] 06/27/2016 Constipatio (more content not included)... [facility]) DENIA GONZALEZ ([id number]) 1955 F Date Time Provider Department 11/24/24 MIKAYLA BROUSSARD [facility] During your visit today, we recorded the following information about you: Mikayla Broussard RN 11/24/2024 3:36 PM Signed [facility]iative Medicine at Home Care Coordination New Patient Note My chart note sent. Nurse introduced self and role of Circuit Manager in Palliative Medicine. Reviewed contact sheet information and on-call process. Nurse educated patient on medication refill process. Nurse encouraged patient to call with any questions/concerns/sy mptom related issues. Mikayla Broussard RNCC Girl Friday Allergies As of Date: 11/24/2024 (No Known Allergies) Date Reviewed: 11/22/2024 Reviewed by: Gregor Fernandez APRN.[facility] - Fully Assessed Reason for Visit: Care Coordination [2891] Prescriptions as of 11/24/2024 - doxycycline (VIBRA-TABS) [...] and supplies as needed - PULSE OXIMETER [facility] Use as directed to check oxygen saturation level - ammonium lactate (AMLACTIN) 12 % lotion Apply 1 application to affected area as needed for Dry Skin. - losartan (COZAAR) 50 mg tablet Take 0.5 tablets by mouth once daily. - OXYGEN, HOME THERAPY, 2.5 L/min by Nasal Cannula route continuous. Use as directred - Disposable Gloves (DISPOSABLE LATEX-FREE GLOVES) [facility] 1 Box once every month. ICD 10: [...] 03/22/2007 B (more content not included)... [facility] DENIA GONAZLEZ ([id number]) 1955 F Date Time Provider Department 11/24/24 [facility] During your visit today, we recorded the following information about you: Shira Shaw LISW 11/24/2024 11:11 AM Signed November 24, 2024 Opened by mistake, please disregard. ALTA [facility] Work [phone] Allergies As of Date: 11/24/2024 (No Known Allergies) Date Reviewed: 11/22/2024 Reviewed by: Gregor Fernandez APRN.ENGINE MECHANIC - Fully Assessed Prescriptions as of 11/24/2024 [...] directed. Dx: COPD J44.9 - Nebulizer Accessories [facility] Mask and supplies as needed - PULSE OXIMETER [facility] Use as directed to check oxygen saturation level - ammonium lactate (AMLACTIN) 12 % lotion Apply 1 application to affected area as needed for Dry Skin. - losartan (COZAAR) 50 mg tablet Take 0.5 tablets by mouth once daily. - OXYGEN, HOME THERAPY, 2.5 L/min by Nasal Cannula route continuous. Use as directred - Disposable Gloves (DISPOSABLE LATEX-FREE GLOVES) [facility] 1 Box once every month. ICD 10: [...] MRSA bacteremia (more content not included)... Normal [facility]23-20[facility] DENIA GONZALEZ ([id number]) 1955 F Date Time Provider Department 11/23/24 MIKAYLA BROUSSARD [facility] During your visit today, we recorded [...] machine/device. Thank you, Mikayla Broussard, RNCC, PN Girl Friday Allergies As of Date: 11/23/2024 (No Known [...] directed. Dx: COPD J44.9 - Nebulizer Accessories [facility] Mask and supplies as needed - PULSE OXIMETER [facility] Use as directed to check oxygen saturation level - ammonium lactate (AMLACTIN) 12 % lotion Apply 1 application to affected area as needed for Dry Skin. - losartan (COZAAR) 50 mg tablet Take 0.5 tablets by mouth once daily. - OXYGEN, HOME THERAPY, 2.5 L/min by Nasal Cannula route continuous. Use as directred - Disposable Gloves (DISPOSABLE LATEX-FREE GLOVES) [facility] 1 Box once every month. ICD 10: [...] 04/13/2005 (more content not included)... Normal [facility] 36on 11-22-2024 36 VC appt made I need to make chart and mail STOCKROOM KEEPER packet. Working on getting records scanned in. [facility] 11-20-2024 [facility] DENIA GONZALEZ ([id number]) 1955 F Date Time Provider Department 11/20/24 YOSEPH FALL [facility] During your visit today, we recorded the following information about you: Sukhi Marrero, KAREN 11/20/2024 3:19 PM Signed Rafa RN with [facility] calls to let provider know that [...] Dr. Fall for when returns or if STOCKROOM KEEPER would review. KAREN Barney Mark D, MD 11/23/2024 2:33 PM Signed Does she feel that she still needs an antibiotic? MD Zaki Chopra Kathryn, MA 11/23/2024 2:51 PM Signed Pt states she still feels like she needs an antibiotic, unable to take Levaquin due to medication interaction. [facility]. JOS Sandy Mark D, MD 11/24/2024 10:30 AM Signed OK for doxycycline as ordered Yoseph Fall MD Allergies As of Date: 11/20/2024 (No Known Allergies) Date Reviewed: 11/20/2024 Reviewed by: Gregor Fernandez APRN.ENGINE MECHANIC - Fully Assessed Reason for Visit: Patient Update [1234] Visit Diagnosis:Stage 3 severe COPD by GOLD classification ([facility]) [J44.9] Order(s):doxycycline (VIBRA-TABS) 100 mg tabletTake 1 [...] and supplies as needed - PULSE OXIMETER [facility] Use as directed to check oxygen saturation level - ammonium lactate (AMLACTIN) 12 % lotion Apply 1 application to affected area as needed for Dry Skin. - losartan (COZAAR) 50 mg tablet Take 0.5 tablets by mouth once daily. - OXYGEN, HOME THERAPY, 2.5 L/min by Nasal Cannula route c (more content not included)... Normal [facility] 11-10-2024 [facility] DENIA GONZALEZ ([id number]) 1955 F Date Time Provider Department 11/10/24 [facility] During your visit today, we [...] RN 11/13/2024 2:10 PM Signed Brenda- nurse- [facility]- phoned to check on pcp reply to message below. Brenda reports when pt was discharged from [facility] she took the prednisone dose prescribed by [facility], and therefor ran out early. Advised message [...] Fully Assessed Reason for Visit: Patient Request [2941] Patient Update [5174] Visit Diagnosis:Stage 3 severe COPD by GOLD classification ([facility]) [J44.9] Order(s):predniSONE (DELTASONE) 10 mg tabletTake 1.5 [...] directed. Dx: COPD J44.9 - Nebulizer Accessories [facility] Mask and supplies as needed - PULSE OXIMETER [facility] Use as directed to check oxygen saturation level - ammonium lactate (AMLACTIN) 12 % lotion Apply 1 application to affected area as needed for Dry Skin. - losartan (COZAAR) 50 mg tablet Take 0.5 tablets by mouth once daily. - OXYGEN, HOME THERAPY, 2.5 L/min by Nasal Cannula route continuo (more content not included)... Normal [facility] Cardiology Visit Reporton 07 -11-2025 Cardiology Visit Report Normal [facility] CNPNon 10-24-2024 CNPN Telephone (FAMPWS) DENIA GONZALEZ ([id number]) 1955 F Date Time Provider Department 10/24/24 [facility] During your visit today, we recorded the [...] swelling. Please call patient back with reply. [phone] KAREN Robledo Mark D, MD 10/24/2024 4:55 PM Signed OK for another 7 days of Levaquin MD Annmarie Chopra Amanda, RN 10/24/2024 5:00 PM Signed Pt called and is notified of providers message and instructions. Pt voices understanding. KAREN Merlos Michelle, RN 10/24/2024 5:30 PM Signed Rafa with [facility] is calling due to pharmacy unable to fill levaquin due to level 1 severe reaction with the multaq patient takes. When this happened when patient was d/c from [facility] hospital the antibitoc was change to cefdinir [...] Fully Assessed Reason for Visit: Patient Request [3626] Order(s):levoFLOXacin (LEVAQUIN) 500 mg tabletTake 1 tablet [...] as needed. - Nebulizer and Compressor For [facility] Use as directed. Dx: COPD J44.9 - Nebulizer Accessories [facility] Mask and supplies as needed - PULSE OXIMETER [facility] Use as directed to check oxygen saturation level - ammonium lactate (AMLACTI (more content not included)... Normal [facility] Telephone (FAMPWS) DENIA GONZALEZ ([id number]) 1955 F Date Time Provider Department 10/24/24 YOSEPH FALL During your visit today, we recorded the following information about you: Jennifer Hennessy LPN 10/24/2024 4:29 PM Signed Ubaldo with [facility] calls in regard [...] Robin, RN 10/25/2024 1:21 PM Signed Rafa [facility] reports patient asked him to call [...] directed. Dx: COPD J44.9 - Nebulizer Accessories [facility] Mask and supplies as needed - PULSE OXIMETER [facility] Use as directed to check oxygen saturation level - ammonium lactate (AMLACTIN) 12 % lotion Apply 1 application to affected area as needed for Dry Skin. - losartan (COZAAR) 50 mg tablet Take 0.5 tablets by mouth once daily. - OXYGEN, HOME THERAPY, 2.5 L/min by Nasal Cannula route continuous. Use as directred - Disposable Gloves (DISPOSABLE LATEX-FREE GLOVES) [facility] 1 Box once every month. ICD 10: [...] 10/24/2024 Noted (more content not included)... [facility] DENIA GONZALEZ ([id number]) 1955 F Date Time Provider Department 10/24/24 YOSEPH FALL [facility] During your visit today, we recorded [...] and chronic pain Virtual Visit Clinic location: [facility]- no safety concerns identified by nurse. Mikayla [...] Fully Assessed Reason for Visit: pall med- [id number] [Other] Initial Consult [665] Prescriptions as of [...] directed. Dx: COPD J44.9 - Nebulizer Accessories [facility] Mask and supplies as needed - PULSE OXIMETER [facility] Use as directed to check oxygen saturation level - ammonium lactate (AMLACTIN) 12 % lotion Apply 1 application to affected area as needed for Dry Skin. - losartan (COZAAR) 50 mg tablet Take 0.5 tablets by mouth once daily. - OXYGEN, HOME THERAPY, 2.5 L/min by Nasal Cannula route continuous. Use as directred - Disposable Gloves (DISPOSABLE LATEX-FREE GLOVES) [facility] 1 Box once every month. ICD 10: [...] of (more content not included)... Normal [facility] CNPNon 10-23-2024 CNPN Telephone (FAMPWS) DENIA GONZALEZ ([id number]) 1955 F Date Time Provider Department 10/23/24 YOSEPH FALL [facility] During your visit today, we recorded the following information about you: Magalie Anguiano RN 10/23/2024 1:49 PM Signed Rafa [facility] called in about Pt and states je [...] chronic generalized pain and is on the Dora for it. He states the Pt would [...] card, OV note, med list faxed to [facility] at [phone] with Palliative Care specified on fax. Naima [...] laterality [M54.40, G89.29] Order(s):CONSULT TO PALLIATIVE CARE [[id number]] Order #: [id number]: 1 FUTURE Prescriptions as of 10/23/2024 - [...] directed. Dx: COPD J44.9 - Nebulizer Accessories [facility] Mask and supplies as needed - PULSE OXIMETER [facility] Use as directed to check oxygen saturation level - ammonium lactate (AMLACTIN) 12 % lotion Apply 1 application to affected area as needed for Dry Skin. - losartan (COZAAR) 50 mg tablet Take 0.5 tablets by mouth once daily. - OXYGEN, HOME THERAPY, 2.5 L/min (more content not included)... [facility]WS[facility] DENIA GONZALEZ ([id number]) 1955 F Date Time Provider Department [facility] During your visit today, we [...] each ankle area. She has tried contacting [facility] over the past couple of [...] directed. Dx: COPD J44.9 - Nebulizer Accessories [facility] Mask and supplies as needed - PULSE OXIMETER [facility] Use as directed to check oxygen saturation level - ammonium lactate (AMLACTIN) 12 % lotion Apply 1 application to affected area as needed for Dry Skin. - losartan (COZAAR) 50 mg tablet Take 0.5 tablets by mouth once daily. - OXYGEN, HOME THERAPY, 2.5 L/min by Nasal Cannula route continuous. Use as directred - Disposable Gloves (DISPOSABLE LATEX-FREE GLOVES) [facility] 1 Box once every month. ICD 10: M15.9, J44.9, M54.40 - Incontinence Pad, Liner, Disp (POISE PADS) pads Use pads as directed. Dx: N39.46 - COMPOUNDED PRESCRIPTION BLOOD PRESSURE CUFF FOR HOME USE. DX: HYPERTENSION I10. AUTOMATIC CUFF. - (more content not included)... Normal [facility] [place] 10-19-2024 [facility] Telephone (FAMPWS) DENIA GONZALEZ ([id number]) 1955 F Date Time Provider Department 10/19/24 YOSEPH FALL During your visit today, we recorded the following information about you: Martínez Louie, RN 10/19/2024 1:07 PM Signed Monae- nurse- [facility]- reports she saw patient today. Noted [...] laterality [M54.40, G89.29] Order(s):CONSULT TO PALLIATIVE CARE [[id number]] Order #: [id number]: 1 FUTURE Prescriptions as of 10/20/2024 - [...] directed. Dx: COPD J44.9 - Nebulizer Accessories [facility] Mask and supplies as needed - PULSE OXIMETER [facility] Use as directed to check oxygen saturation level - ammonium lactate (AMLACTIN) 12 % lotion Apply 1 application to affected area as needed for Dry Skin. - losartan (COZAAR) 50 mg tablet Take 0.5 tablets by mouth once daily. - OXYGEN, HOME THERAPY, 2.5 L/min by Nasal Cannula route continuous. Use as directred - Disposable Gloves (DISPOSABLE LATEX-FREE GLOVES) [facility] 1 Box once every month. ICD 10: [...] [C34.1 (more content not included)... Normal [facility] [place] [facility] DENIA GONZALEZ ([id number]) 1955 F Date Time Provider Department 10/18/24 [facility] During your visit today, we recorded the following information about you: Judy Bliss, RN 10/18/2024 10:51 AM Signed Vilma NICHOLSON calling from [facility] to report plan of care for [...] 1:08 PM Signed Mercedez ZHENG calling from [facility] to report plan of care for patient [...] directed. Dx: COPD J44.9 - Nebulizer Accessories [facility] Mask and supplies as needed - PULSE OXIMETER [facility] Use as directed to check oxygen saturation level - ammonium lactate (AMLACTIN) 12 % lotion Apply 1 application to affected area as needed for Dry Skin. - losartan (COZAAR) 50 mg tablet Take 0.5 tablets by mouth once daily. - OXYGEN, HOME THERAPY, 2.5 L/min by Nasal Cannula route continuous. Use as directred - Disposable Gloves (DISPOSABLE LATEX-FREE GLOVES) [facility] 1 Box once every month. ICD 10: [...] 10/18/2024 (more content not included)... Normal [facility] CNPNon 10-13-2024 [facility] DEN[facility] GONZALEZ ([id number]) 1955 F Date Time Provider Department 10/13/24 [facility]PH FALL [facility] During your visit today, we recorded the following information about you: Judy Bliss RN 10/13/2024 4:40 PM Signed Edda from [facility] calls and states that they were [...] directed. Dx: COPD J44.9 - Nebulizer Accessories [facility] Mask and supplies as needed - PULSE OXIMETER [facility] Use as directed to check oxygen saturation level - ammonium lactate (AMLACTIN) 12 % lotion Apply 1 application to affected area as needed for Dry Skin. - losartan (COZAAR) 50 mg tablet Take 0.5 tablets by mouth once daily. - OXYGEN, HOME THERAPY, 2.5 L/min by Nasal Cannula route continuous. Use as directred - Disposable Gloves (DISPOSABLE LATEX-FREE GLOVES) [facility] 1 Box once every month. ICD 10: [...] Stage 3 severe COPD by GOLD classification ([facility]*09/28/2005 Asthma [J45.909] GENERAL OSTEOARTHROSIS [M15.9] [...] acute (more content not included)... Normal [facility] Basic Metabolic Profile (BMP )on 10-11-2024 BUN Normal 4-19 [facility] Comment on above: Result Comment: Canc elled via OM: Order cancelled - Patient discharged Performed By: #### L 100.0100, L500.2500 ####[facility] [address] [place], [address] BUN/CRE Normal 10-20 [facility] Comment on above: Result Comment: Canc elled via OM: Order cancelled - Patient discharged Performed By: #### L 100.0100, L500.2500 ####[facility] [address] [place], [address] Calcium Normal 7.6-11.0 [facility] Comment on above: Result Comment: Canc elled via OM: Order cancelled - Patient discharged Performed By: #### L 100.0100, L500.2500 ####[facility] [address] [place], [address] CL Normal 98-108 [facility] Comment on above: Result Comment: Canc elled via OM: Order cancelled - Patient discharged Performed By: #### L 100.0100, L500.2500 ####[facility] [address] [place], [address] CO2 Normal 21.0-32.0 [facility] Comment on above: Result Comment: Canc elled via OM: Order cancelled - Patient discharged Performed By: #### L 100.0100, L500.2500 ####[facility] [address] [place], [address] CREAT,SERUM Normal 0.70-1.20 [facility] Comment on above: Result Comment: Canc elled via OM: Order cancelled - Patient discharged Performed By: #### L 100.0100, L500.2500 ####[facility] [address] [place], [address] eGFR Normal >60 [facility] Comment on above: Result Comment: Canc elled via OM: Order cancelled - Patient discharged Performed By: #### L 100.0100, L500.2500 ####[facility] [address] [place], [address] GAP Normal 5-15 [facility] Comment on above: Result Comment: Canc elled via OM: Order cancelled - Patient discharged Performed By: #### L 100.0100, L500.2500 ####[facility] [address] [place], [address] GLU Normal 70-99 [facility] Comment on above: Result Comment: Canc elled via OM: Order cancelled - Patient discharged Performed By: #### L 100.0100, L500.2500 ####[facility] [address] [place], [address] Potassium Normal 3.3-5.1 [facility] Comment on above: Result Comment: Canc elled via OM: Order cancelled - Patient discharged Performed By: #### L 100.0100, L500.2500 ####[facility] [address] [place], [address] Basic Metabolic Profile (BMP) Normal 133-145 [facility] Comment on above: Result Comment: Canc elled via OM: Order cancelled - Patient discharged Performed By: #### L 100.0100, L500.2500 ####[facility] [address] [place], [address] CBC W/Diff, Automatedon 09-24 Absolute Neut Normal 2.0-7.7 [facility] Comment on above: Result Comment: Canc elled via OM: Order cancelled - Patient discharged Performed By: #### L 100.0100, L500.2500 ####[facility] [address] [place], [address] HCT Normal 37-47 [facility] Comment on above: Result Comment: Canc elled via OM: Order cancelled - Patient discharged Performed By: #### L 100.0100, L500.2500 ####[facility] [address] [place], [address] HGB Normal 12.0-15.0 [facility] Comment on above: Result Comment: Canc elled via OM: Order cancelled - Patient discharged Performed By: #### L 100.0100, L500.2500 ####[facility] [address] [place], [address] MCH Normal 27.0-32.0 [facility] Comment on above: Result Comment: Canc elled via OM: Order cancelled - Patient discharged Performed By: #### L 100.0100, L500.2500 ####[facility] [address] [place], [address] MCHC Normal 32-36 [facility] Comment on above: Result Comment: Canc elled via OM: Order cancelled - Patient discharged Performed By: #### L 100.0100, L500.2500 ####[facility] [address] [place], [address] MCV Normal 81-99 [facility] Comment on above: Result Comment: Canc elled via OM: Order cancelled - Patient discharged Performed By: #### L 100.0100, L500.2500 ####[facility] [address] [place], [address] NEUT% Normal 47-70 [facility] Comment on above: Result Comment: Canc elled via OM: Order cancelled - Patient discharged Performed By: #### L 100.0100, L500.2500 ####[facility] [address] [place], [address] PLT Normal 150-450 [facility] Comment on above: Result Comment: Canc elled via OM: Order cancelled - Patient discharged Performed By: #### L 100.0100, L500.2500 ####[facility] [address] [place], [address] RBC Normal 4.2-5.4 [facility] Comment on above: Result Comment: Canc elled via OM: Order cancelled - Patient discharged Performed By: #### L 100.0100, L500.2500 ####[facility] [address] [place], [address] RDW CV Normal 11.6-14.6 [facility] Comment on above: Result Comment: Canc elled via OM: Order cancelled - Patient discharged Performed By: #### L 100.0100, L500.2500 ####[facility] [address] [place], [address] RDW SD Normal 35.1-43.9 [facility] Comment on above: Result Comment: Canc elled via OM: Order cancelled - Patient discharged Performed By: #### L 100.0100, L500.2500 ####[facility] [address] [place], [address] WBC Normal 4.4-11.0 [facility] Comment on above: Result Comment: Canc elled via OM: Order cancelled - Patient discharged Performed By: #### L 100.0100, L500.2500 ####[facility] [address] [place], [address] Basic Metabolic Profile (BMP )on 10-10-2024 BUN Normal 4-19 [facility] Comment on above: Result Comment: Canc elled via OM: Order cancelled - Patient discharged Performed By: #### L 100.0100, L500.2500 ####[facility] [address] [place], [address] BUN/CRE Normal 10-20 [facility] Comment on above: Result Comment: Canc elled via OM: Order cancelled - Patient discharged Performed By: #### L 100.0100, L500.2500 ####[facility] [address] [place], [address] Calcium Normal 7.6-11.0 [facility] Comment on above: Result Comment: Canc elled via OM: Order cancelled - Patient discharged Performed By: #### L 100.0100, L500.2500 ####[facility] [address] [place], [address] CL Normal 98-108 [facility] Comment on above: Result Comment: Canc elled via OM: Order cancelled - Patient discharged Performed By: #### L 100.0100, L500.2500 ####[facility] [address] [place], [address] CO2 Normal 21.0-32.0 [facility] Comment on above: Result Comment: Canc elled via OM: Order cancelled - Patient discharged Performed By: #### L 100.0100, L500.2500 ####[facility] [address] [place], [address] CREAT,SERUM Normal 0.70-1.20 [facility] Comment on above: Result Comment: Canc elled via OM: Order cancelled - Patient discharged Performed By: #### L 100.0100, L500.2500 ####[facility] [address] [place], [address] eGFR Normal >60 [facility] Comment on above: Result Comment: Canc elled via OM: Order cancelled - Patient discharged Performed By: #### L 100.0100, L500.2500 ####[facility] [address] [place], [address] GAP Normal 5-15 [facility] Comment on above: Result Comment: Canc elled via OM: Order cancelled - Patient discharged Performed By: #### L 100.0100, L500.2500 ####[facility] [address] [place], [address] GLU Normal 70-99 [facility] Comment on above: Result Comment: Canc elled via OM: Order cancelled - Patient discharged Performed By: #### L 100.0100, L500.2500 ####[facility] [address] [place], [address] Potassium Normal 3.3-5.1 [facility] Comment on above: Result Comment: Canc elled via OM: Order cancelled - Patient discharged Performed By: #### L 100.0100, L500.2500 ####[facility] [address] [place], [address] Basic Metabolic Profile (BMP) Normal 133-145 [facility] Comment on above: Result Comment: Canc elled via OM: Order cancelled - Patient discharged Performed By: #### L 100.0100, L500.2500 ####[facility] [address] [place], [address] CBC W/Diff, Automatedon - Absolute Neut Normal 2.0-7.7 [facility] Comment on above: Result Comment: Canc elled via OM: Order cancelled - Patient discharged Performed By: #### L 100.0100, L500.2500 ####[facility] [address] [place], [address] HCT Normal 37-47 [facility] Comment on above: Result Comment: Canc elled via OM: Order cancelled - Patient discharged Performed By: #### L 100.0100, L500.2500 ####[facility] [address] [place], [address] HGB Normal 12.0-15.0 [facility] Comment on above: Result Comment: Canc elled via OM: Order cancelled - Patient discharged Performed By: #### L 100.0100, L500.2500 ####[facility] [address] [place], [address] MCH Normal 27.0-32.0 [facility] Comment on above: Result Comment: Canc elled via OM: Order cancelled - Patient discharged Performed By: #### L 100.0100, L500.2500 ####[facility] [address] [place], [address] MCHC Normal 32-36 [facility] Comment on above: Result Comment: Canc elled via OM: Order cancelled - Patient discharged Performed By: #### L 100.0100, L500.2500 ####[facility] [address] [place], [address] MCV Normal 81-99 [facility] Comment on above: Result Comment: Canc elled via OM: Order cancelled - Patient discharged Performed By: #### L 100.0100, L500.2500 ####[facility] [address] [place], [address] NEUT% Normal 47-70 [facility] Comment on above: Result Comment: Canc elled via OM: Order cancelled - Patient discharged Performed By: #### L 100.0100, L500.2500 ####[facility] [address] [place], [address] PLT Normal 150-450 [facility] Comment on above: Result Comment: Canc elled via OM: Order cancelled - Patient discharged Performed By: #### L 100.0100, L500.2500 ####[facility] [address] [place], [address] RBC Normal 4.2-5.4 [facility] Comment on above: Result Comment: Canc elled via OM: Order cancelled - Patient discharged Performed By: #### L 100.0100, L500.2500 ####[facility] [address] [place], [address] RDW CV Normal 11.6-14.6 [facility] Comment on above: Result Comment: Canc elled via OM: Order cancelled - Patient discharged Performed By: #### L 100.0100, L500.2500 ####[facility] [address] [place], [address] RDW SD Normal 35.1-43.9 [facility] Comment on above: Result Comment: Canc elled via OM: Order cancelled - Patient discharged Performed By: #### L 100.0100, L500.2500 ####[facility] [address] [place], [address] WBC Normal 4.4-11.0 [facility] Comment on above: Result Comment: Canc elled via OM: Order cancelled - Patient discharged Performed By: #### L 100.0100, L500.2500 ####[facility] [address] [place], [address] CNPNon 10-10-2024 [facility] DENIA GONZALEZ ([id number]) 1955 F Date Time Provider Department 10/10/24 YOSEPH FALL [facility] During your visit today, we recorded the following information about you: Martínez Louie, RN 10/10/2024 4:34 PM Signed [facility]- reports he did start of care [...] MA - Fully Assessed Reason for Visit: [facility] patient update [Other] Prescriptions as of [...] directed. Dx: COPD J44.9 - Nebulizer Accessories [facility] Mask and supplies as needed - PULSE OXIMETER [facility] Use as directed to check oxygen saturation level - ammonium lactate (AMLACTIN) 12 % lotion Apply 1 application to affected area as needed for Dry Skin. - losartan (COZAAR) 50 mg tablet Take 0.5 tablets by mouth once daily. - OXYGEN, HOME THERAPY, 2.5 L/min by Nasal Cannula route continuous. Use as directred - Disposable Gloves (DISPOSABLE LATEX-FREE GLOVES) [facility] 1 Box once every month. ICD 10: [...] [ (more content not included)... Normal [facility] Absolute lymphocyte countOrd ered By: Lynne Schafer on 10-09-2024 Lymphocytes Auto (Unsp spec) [#/Vol] 0.67 10*3/uL Low 0.83-4.51 [facility] Absolute neutrophil countOrd ered By: Lynne Schafer on 10-09-2024 Neutrophils (Bld) [#/Vol] 8.4 10*3/uL High 2.0-7.7 [facility] Anion gap in Serum or Plasma Ordered By: Lynne Schafer on 10-09-2024 Anion gap [Moles/Vol] 5 mmol/L 5-15 [facility] Automated lymphocyte count a s percentage of total leukocytesOrdered By: Lynne Schafer on 10-09-2024 Lymphocytes/100 WBC Auto (Unsp spec) 6.9 % Low 19-41 [facility] BUN/creatinine ratioOrdered By: Lynne Schafer on 10-09-2024 Urea nitrogen/Creatinine [Mass ratio] 38.0 mg/mg High 10-20 [facility] Basic Metabolic Profile (BMP )on 10-09-2024 BUN/CRE 38.0 RATIO High 10- [facility] Comment on above: Performed By: #### L 100.0100, L500.2500 ####[facility] [address] [place], [address] Calcium [Mass/Vol] 8.4 mg/dL Normal 7.6-11.0 [facility] Comment on above: Performed By: #### L 100.0100, L500.2500 ####[facility] [address] [place], [address] Chloride [Moles/Vol] 93 mmol/L Low 98-[address] [facility] Comment on above: Performed By: #### L 100.0100, L500.2500 ####[facility] [address] [place], [address] CO2 [Moles/Vol] 40.4 mmol/L High 21.0-32.0 [facility] Comment on above: Performed By: #### L 100.0100, L500.2500 ####[facility] [address] [place], [address] Creatinine [Mass/Vol] 0.44 mg/dL Low 0.70-1.20 [facility] Comment on above: Performed By: #### L 100.0100, L500.2500 ####[facility] [address] [place], [address] ECRCL 63.35 ml/min Normal 50-250 [facility] Comment on above: Performed By: #### L 100.0100, L500.2500 ####[facility] [address] [place], [address] GAP 5 Normal 5-15 [facility] Comment on above: Performed By: #### L 100.0100, L500.2500 ####[facility] [address] [place], [address] GFR/1.73 sq M.predicted among non-blacks MDRD (S/P/Bld) [Vol rate/Area] 105 mL/min/{1.73_m2} Normal >60 [facility] Comment on above: Result Comment: mL/m in/1.73m2 CKD-EPI Creatinine Equation (2020) Performed By: #### L 100.0100, L500.2500 ####[facility] [address] [place], [address] Glucose [Mass/Vol] 113 mg/dL High 70-99 [facility] Comment on above: Performed By: #### L 100.0100, L500.2500 ####[facility] [address] [place], [address] Potassium [Moles/Vol] 4.9 mmol/L Normal 3.3-5.1 [facility] Comment on above: Result Comment: Hemo lysis present, Results??could be affected.?? Performed By: #### L 100.0100, L500.2500 ####[facility] [address] [place], [address] Sodium [Moles/Vol] 139 mmol/L Normal 133-145 [facility] Comment on above: Performed By: #### L 100.0100, L500.2500 ####[facility] [address] [place], [address] Urea nitrogen [Mass/Vol] 17 mg/dL Normal 4-19 [facility] Comment on above: Performed By: #### L 100.0100, L500.2500 ####[facility] [address] [place], [address] Basophil percentageOrdered B y: Lynne Schafer on 10-09-2024 Basophils/100 WBC (Bld) 0.1 % 0-1 [facility] CBC W/Diff, Automatedon 09-24 Absolute Lymph 0.67 X10 3/uL Low 0.83-4.51 [facility] Comment on above: Performed By: #### L 100.0100, L500.2500 ####[facility] [address] [place], [address] Absolute Neut 8.4 X10 3/uL High 2.0-7.7 [facility] Comment on above: Performed By: #### L 100.0100, L500.2500 ####[facility] [address] [place], [address] Basophils/100 WBC (Bld) 0.1 % Normal 0-1 [facility] Comment on above: Performed By: #### L 100.0100, L500.2500 ####[facility] [address] [place], [address] Eosinophils/100 WBC (Bld) 0.0 % Normal 0-5 [facility] Comment on above: Performed By: #### L 100.0100, L500.2500 ####[facility] [address] [place], [address] Erythrocyte distribution width (RBC) [Ratio] 13.1 % Normal 11.6-14.6 [facility] Comment on above: Performed By: #### L 100.0100, L500.2500 ####[facility] [address] [place], [address] Hematocrit (Bld) [Volume fraction] 41.6 % Normal 37-47 [facility] Comment on above: Performed By: #### L 100.0100, L500.2500 ####[facility] [address] [place], [address] Hemoglobin (Bld) [Mass/Vol] 13.5 g/dL Normal 12.0-15.0 [facility] Comment on above: Performed By: #### L 100.0100, L500.2500 ####[facility] [address] [place], [address] IG% 0.800 Normal 0.0-0.9 [facility] Comment on above: Result Comment: IG% - Immature Granulocytes (promyelocytes, myelocytes andmetamyelocytes) > 1% indicates that a LEFT SHIFT is Present. Performed By: #### L 100.0100, L500.2500 ####[facility] [address] [place], [address] Lymphocytes/100 WBC (Bld) 6.9 % Low 19-41 [facility] Comment on above: Performed By: #### L 100.0100, L500.2500 ####[facility] [address] [place], [address] MCH (RBC) [Entitic mass] 27.9 pg Normal 27.0-32.0 [facility] Comment on above: Performed By: #### L 100.0100, L500.2500 ####[facility] [address] [place], [address] MCHC (RBC) [Mass/Vol] 32.5 g/dL Normal 32-36 [facility] Comment on above: Performed By: #### L 100.0100, L500.2500 ####[facility] [address] [place], [address] MCV (RBC) [Entitic vol] 86.0 fL Normal 81-99 [facility] Comment on above: Performed By: #### L 100.0100, L500.2500 ####[facility] [address] [place], [address] Monocytes/100 WBC (Bld) 5.3 % Normal 0-10 [facility] Comment on above: Performed By: #### L 100.0100, L500.2500 ####[facility] [address] [place], [address] Neutrophils/100 WBC (Bld) 86.9 % High 47-70 [facility] Comment on above: Performed By: #### L 100.0100, L500.2500 ####[facility] [address] [place], [address] Nucleated RBC (Bld) [#/Vol] 0 10*3/uL Normal 0-5 [facility] Comment on above: Performed By: #### L 100.0100, L500.2500 ####[facility] [address] [place], [address] Platelet mean volume (Bld) [Entitic vol] 10.0 fL Normal 6.2-12.0 [facility] Comment on above: Performed By: #### L 100.0100, L500.2500 ####[facility] [address] [place], [address] Platelets (Bld) [#/Vol] 181 10*3/uL Normal 150-450 [facility] Comment on above: Performed By: #### L 100.0100, L500.2500 ####[facility] [address] [place], [address] RBC (Bld) [#/Vol] 4.84 10*6/uL Normal 4.2-5.4 [facility] Comment on above: Performed By: #### L 100.0100, L500.2500 ####[facility] [address] [place], [address] RDW SD 41.1 fl Normal 35.1-43.9 [facility] Comment on above: Performed By: #### L 100.0100, L500.2500 ####[facility] [address] [place], [address] WBC (Bld) [#/Vol] 9.7 10*3/uL Normal 4.4-11.0 [facility] Comment on above: Performed By: #### L 100.0100, L500.2500 ####[facility] [address] [place], [address] CNPNon 10-09-2024 [facility] Telephone (FAMPWS) DENIA GONZALEZ ([id number]) 1955 F Date Time Provider Department 10/09/24 [facility] During your visit today, we recorded the following information about you: Magalie Anguiano, KAREN 10/09/2024 7:28 PM Signed Pt's significant other Mike called in and reports Pt was in the hospital for 11 days and released about an hour and a half ago. He states [facility] in [place] doesn't have the Multaq in stock, but [...] PM Signed They may wait until [facility] can get the Multaq tomorrow MD Zaki [...] as needed. - Nebulizer and Compressor For [facility] Use as directed. Dx: COPD J44.9 - Nebulizer Accessories [facility] Mask and supplies as needed - PULSE OXIMETER [facility] Use as directed to check oxygen saturation level - ammonium lactate (AMLACTIN) 12 % lotion Apply 1 application to affected area as needed for Dry Skin. - losartan (COZAAR) 50 mg tablet Take 0.5 tablets by mouth once daily. - OXYGEN, HOME THERAPY, 2.5 L/min by Nasal Cannula route continuous. Use as directred - Disposable Gloves (DISPOSABLE LATEX-FREE GLOVES) [facility] 1 Box once every month. ICD 10: M15.9, J44.9, M54.40 - Incontinence Pad, Liner, Disp (POISE PADS) pads Use pads as directed. Dx: N39.46 - COMPOUNDED PRESCRIPTION BLOOD PRESSURE CUFF FOR HOME USE. DX: HYPERTENSION I10. AUTOMATIC CU (more content not included)... Normal [facility] Telephone (FAMPWS) DENIA GONZALEZ ([id number]) 1955 F Date Time Provider Department 10/09/24 YOSEPH FALL During your visit today, we recorded the following information about you: Sukhi Marrero RN 10/09/2024 3:10 PM Signed Iman with [facility] calls to ask if provider will follow their HH orders for SN, PT, OT. Patient discharging home today from [facility] after being treated for COPD exacerbation and new onset A-fib. Please call Iman back at [phone]. KAREN Barney Mark D, MD 10/09/2024 3:54 [...] directed. Dx: COPD J44.9 - Nebulizer Accessories [facility] Mask and supplies as needed - PULSE OXIMETER [facility] Use as directed to check oxygen saturation level - ammonium lactate (AMLACTIN) 12 % lotion Apply 1 application to affected area as needed for Dry Skin. - losartan (COZAAR) 50 mg tablet Take 0.5 tablets by mouth once daily. - OXYGEN, HOME THERAPY, 2.5 L/min by Nasal Cannula route continuous. Use as directred - Disposable Gloves (DISPOSABLE LATEX-FREE GLOVES) [facility] 1 Box once every month. ICD 10: [...] *02/20/2022 Ciga (more content not included)... [facility] DEN[facility] GONZALEZ ([id number]) 1955 F Date Time Provider Department 10/09/24 YOSEPH FALL FAMPWS During your visit today, we recorded the following information about you: Padmini Abbott RN 10/09/2024 8:40 AM Signed Palma Silvio with [facility] calling to update provider that patient has been at [facility] since 09/29/24. KAREN Robledo Mark D, MD [...] directed. Dx: COPD J44.9 - Nebulizer Accessories [facility] Mask and supplies as needed - PULSE OXIMETER [facility] Use as directed to check oxygen saturation level - ammonium lactate (AMLACTIN) 12 % lotion Apply 1 application to affected area as needed for Dry Skin. - losartan (COZAAR) 50 mg tablet Take 0.5 tablets by mouth once daily. - OXYGEN, HOME THERAPY, 2.5 L/min by Nasal Cannula route continuous. Use as directred - Disposable Gloves (DISPOSABLE LATEX-FREE GLOVES) [facility] 1 Box once every month. ICD 10: [...] by YOSEPH FALL on 10/09/24 Normal [facility] Carbon dioxide, total [Moles /volume] in Central venous bloodOrdered By: Lynne Schafer on 10-09-2024 CO2 [Moles/Vol] 40.4 mmol/L High 21.0-32.0 [facility] Chloride assayOrdered By: Na na Gilmar on 10-09-2024 Chloride [Moles/Vol] 93 mmol/L Low 98-[address] [facility] Discharge Instructionon 09-24 Discharge Instruction Normal [facility] Eosinophil percentageOrdered By: Lynne Schafer on 10-09-2024 Eosinophils/100 WBC (Bld) 0.0 % 0-5 [facility] Erythrocyte distribution wid th ratioOrdered By: Lynne Schafer on 10-09-2024 Erythrocyte distribution width (RBC) [Ratio] 13.1 % 11.6-14.6 [facility] Erythrocyte distribution wid th standard deviationOrdered By: Lynne Schafer on 10-09-2024 Erythrocyte distribution width (RBC) [Ratio] 41.1 fl 35.1-43.9 [facility] Glomerular filtration rate ( GFR) estimation/1.73 sq m using serum, plasma, or whole bOrdered By: Lynne Schafer on 10-09-2024 GFR/1.73 sq M.predicted among non-blacks MDRD (S/P/Bld) [Vol rate/Area] 105 mL/min/{1.73_m2} >60 [facility] Comment on above: mL/min/1.73m2 CKD-EP I Creatinine Equation (2020) Hematocrit Auto (Bld) [Volum e fraction]Ordered By: Lynne Schafer on 10-09-2024 Hematocrit (Bld) [Volume fraction] 41.6 % 37-47 [facility] Hemoglobin measurementOrdere d By: Lynne Schafer on 10-09-2024 Hemoglobin (Bld) [Mass/Vol] 13.5 g/dL 12.0-15.0 [facility] Immature granulocytes/100 WB C Auto (Bld)Ordered By: Lynne Schafer 10-09-2024 Immature granulocytes/100 WBC (Bld) 0.800 % 0.0-0.9 [facility] Comment on above: IG% - Immature Granu locytes (promyelocytes, myelocytes and metamyelocytes) > 1% indicates that a LEFT SHIFT is Present. MCV (mean corpuscular volume ) determinationOrdered By: Lynne Schafer on 10-09-2024 MCV (RBC) [Entitic vol] 86.0 fL 81-99 [facility] Mean corpuscular hemoglobin (MCH) determinationOrdered By: Lynne Schafer 10-09-2024 MCH (RBC) [Entitic mass] 27.9 pg 27.0-32.0 [facility] Mean corpuscular hemoglobin concentration (MCHC) determinationOrdered By: Lynne Schafer 10-09-2024 MCHC (RBC) [Mass/Vol] 32.5 g/dL 32-36 [facility] Mean platelet volume determi nationOrdered By: Lynne Schafer 10-09-2024 Platelet mean volume (Bld) [Entitic vol] 10.0 fL 6.2-12.0 [facility] Monocyte percentageOrdered B y: Lynne Schafer on 06-16-2025 Monocytes/100 WBC (Bld) 5.3 % 0-10 [facility] Neutrophil percentageOrdered By: Lynne Schafer on 10-09-2024 Neutrophils/100 WBC (Bld) 86.9 % High 47-70 [facility] Nucleated red blood cell per centageOrdered By: Lynne Schafer on 10-09-2024 Nucleated RBC/100 WBC (Bld) [Ratio] 0 % 0-5 [facility] Platelet countOrdered By: Belkys Schafer on 10-09-2024 Platelets (Bld) [#/Vol] 181 10*3/uL 150-450 [facility] Potassium measurement (mass/ volume)Ordered By: Lynne Schafer on 10-09-2024 Potassium (Unsp spec) [Mass/Vol] 4.9 mmol/L 3.3-5.1 [facility] Comment on above: Hemolysis present, R esults could be affected. RBC Auto (Bld) [#/Vol]Ordere d By: Lynne Schafer on 10-09-2024 RBC (Bld) [#/Vol] 4.84 10*6/uL 4.2-5.4 [facility] Serum creatinine measurement (mass/volume)Ordered By: Lynne Schafer on 10-09-2024 Creatinine [Mass/Vol] 0.44 mg/dL Low 0.70-1.20 [facility] Serum glucose measurement (m ass/volume)Ordered By: Lynne Schafer on 10-09-2024 Glucose [Mass/Vol] 113 mg/dL High 70-99 [facility] Serum or plasma calcium kadi urement (mass/volume)Ordered By: Lynne Schafer on 10-09-2024 Calcium [Mass/Vol] 8.4 mg/dL 7.6-11.0 [facility] Serum or plasma urea nitroge n measurement (mass/volume)Ordered By: Lynne Schafer on 10-09-2024 Urea nitrogen [Mass/Vol] 17 mg/dL 4-19 [facility] Sodium levelOrdered By: Lynne Schafer on 10-09-2024 Sodium [Moles/Vol] 139 mmol/L 133-145 [facility] White blood cell (WBC) count Ordered By: Lynne Schafer on 10-09-2024 WBC (Bld) [#/Vol] 9.7 10*3/uL 4.4-11.0 [facility] 12 Lead EKGon 10-08-2024 12 Lead EKG Normal [facility] Basic Metabolic Profile (BMP )on 10-08-2024 BUN/CRE 34.4 RATIO High 10-20 [facility] Comment on above: Performed By: #### L 100.0100, L500.2500 ####[facility] [address] [place], [address] Calcium [Mass/Vol] 8.1 mg/dL Normal 7.6-11.0 [facility] Comment on above: Performed By: #### L 100.0100, L500.2500 ####[facility] [address] [place], [address] Chloride [Moles/Vol] 92 mmol/L Low 98-[address] [facility] Comment on above: Performed By: #### L 100.0100, L500.2500 ####[facility] [address] [place], [address] CO2 [Moles/Vol] 38.6 mmol/L High 21.0-32.0 [facility] Comment on above: Performed By: #### L 100.0100, L500.2500 ####[facility] [address] [place], [address] Creatinine [Mass/Vol] 0.51 mg/dL Low 0.70-1.20 [facility] Comment on above: Performed By: #### L 100.0100, L500.2500 ####[facility] [address] [place], [address] ECRCL 64.27 ml/min Normal 50-250 [facility] Comment on above: Performed By: #### L 100.0100, L500.2500 ####[facility] [address] [place], [address] GAP 7 Normal 5-15 [facility] Comment on above: Performed By: #### L 100.0100, L500.2500 ####[facility] [address] [place], [address] GFR/1.73 sq M.predicted among non-blacks MDRD (S/P/Bld) [Vol rate/Area] 101 mL/min/{1.73_m2} Normal >60 [facility] Comment on above: Result Comment: mL/m in/1.73m2 CKD-EPI Creatinine Equation (2020) Performed By: #### L 100.0100, L500.2500 ####[facility] [address] [place], [address] Glucose [Mass/Vol] 179 mg/dL High 70-99 [facility] Comment on above: Performed By: #### L 100.0100, L500.2500 ####[facility] [address] [place], [address] Potassium [Moles/Vol] 4.6 mmol/L Normal 3.3-5.1 [facility] Comment on above: Performed By: #### L 100.0100, L500.2500 ####[facility] [address] [place], [address] Sodium [Moles/Vol] 138 mmol/L Normal 133-145 [facility] Comment on above: Performed By: #### L 100.0100, L500.2500 ####[facility] [address] [place], [address] Urea nitrogen [Mass/Vol] 18 mg/dL Normal 4-19 [facility] Comment on above: Performed By: #### L 100.0100, L500.2500 ####[facility] [address] [place], [address] CBC W/Diff, Automatedon 06-1 Absolute Lymph 0.41 X10 3/uL Low 0.83-4.51 [facility] Comment on above: Performed By: #### L 100.0100, L500.2500 ####[facility] [address] [place], [address] Absolute Neut 7.2 X10 3/uL Normal 2.0-7.7 [facility] Comment on above: Performed By: #### L 100.0100, L500.2500 ####[facility] [address] [place], [address] Basophils/100 WBC (Bld) 0.2 % Normal 0-1 [facility] Comment on above: Performed By: #### L 100.0100, L500.2500 ####[facility] [address] [place], [address] Eosinophils/100 WBC (Bld) 0.0 % Normal 0-5 [facility] Comment on above: Performed By: #### L 100.0100, L500.2500 ####[facility] [address] [place], [address] Erythrocyte distribution width (RBC) [Ratio] 13.0 % Normal 11.6-14.6 [facility] Comment on above: Performed By: #### L 100.0100, L500.2500 ####[facility] [address] [place], [address] Hematocrit (Bld) [Volume fraction] 41.6 % Normal 37-47 [facility] Comment on above: Performed By: #### L 100.0100, L500.2500 ####[facility] [address] [place], [address] Hemoglobin (Bld) [Mass/Vol] 13.2 g/dL Normal 12.0-15.0 [facility] Comment on above: Performed By: #### L 100.0100, L500.2500 ####[facility] [address] [place], [address] IG% 0.900 Normal 0.0-0.9 [facility] Comment on above: Result Comment: IG% - Immature Granulocytes (promyelocytes, myelocytes andmetamyelocytes) > 1% indicates that a LEFT SHIFT is Present. Performed By: #### L 100.0100, L500.2500 ####[facility] [address] [place], [address] Lymphocytes/100 WBC (Bld) 5.1 % Low 19-41 [facility] Comment on above: Performed By: #### L 100.0100, L500.2500 ####[facility] [address] [place], [address] MCH (RBC) [Entitic mass] 27.3 pg Normal 27.0-32.0 [facility] Comment on above: Performed By: #### L 100.0100, L500.2500 ####[facility] [address] [place], [address] MCHC (RBC) [Mass/Vol] 31.7 g/dL Low 32-36 [facility] Comment on above: Performed By: #### L 100.0100, L500.2500 ####[facility] [address] [place], [address] MCV (RBC) [Entitic vol] 86.1 fL Normal 81-99 [facility] Comment on above: Performed By: #### L 100.0100, L500.2500 ####[facility] [address] [place], [address] Monocytes/100 WBC (Bld) 4.7 % Normal 0-10 [facility] Comment on above: Performed By: #### L 100.0100, L500.2500 ####[facility] [address] [place], [address] Neutrophils/100 WBC (Bld) 89.1 % High 47-70 [facility] Comment on above: Performed By: #### L 100.0100, L500.2500 ####[facility] [address] [place], [address] Nucleated RBC (Bld) [#/Vol] 0 10*3/uL Normal 0-5 [facility] Comment on above: Performed By: #### L 100.0100, L500.2500 ####[facility] [address] [place], [address] Platelet mean volume (Bld) [Entitic vol] 10.0 fL Normal 6.2-12.0 [facility] Comment on above: Performed By: #### L 100.0100, L500.2500 ####[facility] [address] [place], [address] Platelets (Bld) [#/Vol] 168 10*3/uL Normal 150-450 [facility] Comment on above: Performed By: #### L 100.0100, L500.2500 ####[facility] [address] [place], [address] RBC (Bld) [#/Vol] 4.83 10*6/uL Normal 4.2-5.4 [facility] Comment on above: Performed By: #### L 100.0100, L500.2500 ####[facility] [address] [place], [address] RDW SD 40.7 fl Normal 35.1-43.9 [facility] Comment on above: Performed By: #### L 100.0100, L500.2500 ####[facility] [address] [place], [address] WBC (Bld) [#/Vol] 8.1 10*3/uL Normal 4.4-11.0 [facility] Comment on above: Performed By: #### L 100.0100, L500.2500 ####[facility] [address] [place], [address] Basic Metabolic Profile (BMP )on 10-07-2024 BUN/CRE 37.1 RATIO High 10-20 [facility] Comment on above: Performed By: #### L 500.2500, L100.0100 ####[facility] [address] [place], [address] Calcium [Mass/Vol] 8.1 mg/dL Normal 7.6-11.0 [facility] Comment on above: Performed By: #### L 500.2500, L100.0100 ####[facility] [address] [place], [address] Chloride [Moles/Vol] 93 mmol/L Low 98-[address] [facility] Comment on above: Performed By: #### L 500.2500, L100.0100 ####[facility] [address] [place], [address] CO2 [Moles/Vol] 38.2 mmol/L High 21.0-32.0 [facility] Comment on above: Performed By: #### L 500.2500, L100.0100 ####[facility] [address] [place], [address] Creatinine [Mass/Vol] 0.50 mg/dL Low 0.70-1.20 [facility] Comment on above: Performed By: #### L 500.2500, L100.0100 ####[facility] [address] [place], [address] ECRCL 63.81 ml/min Normal 50-250 [facility] Comment on above: Performed By: #### L 500.2500, L100.0100 ####[facility] [address] [place], [address] GAP 6 Normal 5-15 [facility] Comment on above: Performed By: #### L 500.2500, L100.0100 ####[facility] [address] [place], [address] GFR/1.73 sq M.predicted among non-blacks MDRD (S/P/Bld) [Vol rate/Area] 101 mL/min/{1.73_m2} Normal >60 [facility] Comment on above: Result Comment: mL/m in/1.73m2 CKD-EPI Creatinine Equation (2020) Performed By: #### L 500.2500, L100.0100 ####[facility] [address] [place], [address] Glucose [Mass/Vol] 192 mg/dL High 70-99 [facility] Comment on above: Performed By: #### L 500.2500, L100.0100 ####[facility] [address] [place], [address] Potassium [Moles/Vol] 4.8 mmol/L Normal 3.3-5.1 [facility] Comment on above: Result Comment: Hemo lysis present, Results??could be affected.?? Performed By: #### L 500.2500, L100.0100 ####[facility] [address] [place], [address] Sodium [Moles/Vol] 137 mmol/L Normal 133-145 [facility] Comment on above: Performed By: #### L 500.2500, L100.0100 ####[facility] [address] [place], [address] Urea nitrogen [Mass/Vol] 19 mg/dL Normal 4-19 [facility] Comment on above: Performed By: #### L 500.2500, L100.0100 ####[facility] [address] [place], [address] CBC W/Diff, Automatedon 06- Absolute Lymph 0.39 X10 3/uL Low 0.83-4.51 [facility] Comment on above: Performed By: #### L 500.2500, L100.0100 ####[facility] [address] [place], [address] Absolute Neut 8.0 X10 3/uL High 2.0-7.7 [facility] Comment on above: Performed By: #### L 500.2500, L100.0100 ####[facility] [address] [place], [address] Basophils/100 WBC (Bld) 0.2 % Normal 0-1 [facility] Comment on above: Performed By: #### L 500.2500, L100.0100 ####[facility] [address] [place], [address] Eosinophils/100 WBC (Bld) 0.0 % Normal 0-5 [facility] Comment on above: Performed By: #### L 500.2500, L100.0100 ####[facility] [address] [place], [address] Erythrocyte distribution width (RBC) [Ratio] 13.0 % Normal 11.6-14.6 [facility] Comment on above: Performed By: #### L 500.2500, L100.0100 ####[facility] [address] [place], [address] Hematocrit (Bld) [Volume fraction] 41.4 % Normal 37-47 [facility] Comment on above: Performed By: #### L 500.2500, L100.0100 ####[facility] [address] [place], [address] Hemoglobin (Bld) [Mass/Vol] 13.5 g/dL Normal 12.0-15.0 [facility] Comment on above: Performed By: #### L 500.2500, L100.0100 ####[facility] [address] [place], [address] IG% 0.900 Normal 0.0-0.9 [facility] Comment on above: Result Comment: IG% - Immature Granulocytes (promyelocytes, myelocytes andmetamyelocytes) > 1% indicates that a LEFT SHIFT is Present. Performed By: #### L 500.2500, L100.0100 ####[facility] [address] [place], [address] Lymphocytes/100 WBC (Bld) 4.3 % Low 19-41 [facility] Comment on above: Performed By: #### L 500.2500, L100.0100 ####[facility] [address] [place], [address] MCH (RBC) [Entitic mass] 28.2 pg Normal 27.0-32.0 [facility] Comment on above: Performed By: #### L 500.2500, L100.0100 ####[facility] [address] [place], [address] MCHC (RBC) [Mass/Vol] 32.6 g/dL Normal 32-36 [facility] Comment on above: Performed By: #### L 500.2500, L100.0100 ####[facility] [address] [place], [address] MCV (RBC) [Entitic vol] 86.6 fL Normal 81-99 [facility] Comment on above: Performed By: #### L 500.2500, L100.0100 ####[facility] [address] [place], [address] Monocytes/100 WBC (Bld) 5.4 % Normal 0-10 [facility] Comment on above: Performed By: #### L 500.2500, L100.0100 ####[facility] [address] [place], [address] Neutrophils/100 WBC (Bld) 89.2 % High 47-70 [facility] Comment on above: Performed By: #### L 500.2500, L100.0100 ####[facility] [address] [place], [address] Nucleated RBC (Bld) [#/Vol] 0 10*3/uL Normal 0-5 [facility] Comment on above: Performed By: #### L 500.2500, L100.0100 ####[facility] [address] [place], [address] Platelet mean volume (Bld) [Entitic vol] 9.9 fL Normal 6.2-12.0 [facility] Comment on above: Performed By: #### L 500.2500, L100.0100 ####[facility] [address] [place], [address] Platelets (Bld) [#/Vol] 176 10*3/uL Normal 150-450 [facility] Comment on above: Performed By: #### L 500.2500, L100.0100 ####[facility] [address] [place], [address] RBC (Bld) [#/Vol] 4.78 10*6/uL Normal 4.2-5.4 [facility] Comment on above: Performed By: #### L 500.2500, L100.0100 ####[facility] [address] [place], [address] RDW SD 41.1 fl Normal 35.1-43.9 [facility] Comment on above: Performed By: #### L 500.2500, L100.0100 ####[facility] [address] [place], [address] WBC (Bld) [#/Vol] 9.0 10*3/uL Normal 4.4-11.0 [facility] Comment on above: Performed By: #### L 500.2500, L100.0100 ####[facility] [address] [place], [address] Magnesiumon 10-07-2024 Magnesium [Mass/Vol] 2.5 mg/dL High 1.5-2.[address] [facility] Comment on above: Performed By: #### L 501.5200 ####[facility] [address] [place], [address] Magnesium measurement (mass/ volume)Ordered By: Michael Plasencia on 10-07-2024 Magnesium (Unsp spec) [Mass/Vol] 2.5 mg/dL High 1.5-2.2 [facility] Basic Metabolic Profile (BMP )on 10-06-2024 BUN/CRE 43.8 RATIO High 10-20 [facility] Comment on above: Performed By: #### L 100.0100, L500.2500 ####[facility] [address] [place], [address] Calcium [Mass/Vol] 8.3 mg/dL Normal 7.6-11.0 [facility] Comment on above: Performed By: #### L 100.0100, L500.2500 ####[facility] [address] [place], [address] Chloride [Moles/Vol] 94 mmol/L Low 98-[address] [facility] Comment on above: Performed By: #### L 100.0100, L500.2500 ####[facility] [address] [place], [address] CO2 [Moles/Vol] 36.3 mmol/L High 21.0-32.0 [facility] Comment on above: Performed By: #### L 100.0100, L500.2500 ####[facility] [address] [place], [address] Creatinine [Mass/Vol] 0.45 mg/dL Low 0.70-1.20 [facility] Comment on above: Performed By: #### L 100.0100, L500.2500 ####[facility] [address] [place], [address] ECRCL 63.77 ml/min Normal 50-250 [facility] Comment on above: Performed By: #### L 100.0100, L500.2500 ####[facility] [address] [place], [address] GAP 7 Normal 5-15 [facility] Comment on above: Performed By: #### L 100.0100, L500.2500 ####[facility] [address] [place], [address] GFR/1.73 sq M.predicted among non-blacks MDRD (S/P/Bld) [Vol rate/Area] 104 mL/min/{1.73_m2} Normal >60 [facility] Comment on above: Result Comment: mL/m in/1.73m2 CKD-EPI Creatinine Equation (2020) Performed By: #### L 100.0100, L500.2500 ####[facility] [address] [place], [address] Glucose [Mass/Vol] 168 mg/dL High 70-99 [facility] Comment on above: Performed By: #### L 100.0100, L500.2500 ####[facility] [address] [place], [address] Potassium [Moles/Vol] 4.5 mmol/L Normal 3.3-5.1 [facility] Comment on above: Performed By: #### L 100.0100, L500.2500 ####[facility] [address] [place], [address] Sodium [Moles/Vol] 137 mmol/L Normal 133-145 [facility] Comment on above: Performed By: #### L 100.0100, L500.2500 ####[facility] [address] [place], [address] Urea nitrogen [Mass/Vol] 20 mg/dL High 4-19 [facility] Comment on above: Performed By: #### L 100.0100, L500.2500 ####[facility] [address] [place], [address] CBC W/Diff, Automatedon 06-04 28-2024 Absolute Lymph 0.44 X10 3/uL Low 0.83-4.51 [facility] Comment on above: Performed By: #### L 100.0100, L500.2500 ####[facility] [address] [place], [address] Absolute Neut 8.7 X10 3/uL High 2.0-7.7 [facility] Comment on above: Performed By: #### L 100.0100, L500.2500 ####[facility] [address] [place], [address] Basophils/100 WBC (Bld) 0.1 % Normal 0-1 [facility] Comment on above: Performed By: #### L 100.0100, L500.2500 ####[facility] [address] [place], [address] Eosinophils/100 WBC (Bld) 0.0 % Normal 0-5 [facility] Comment on above: Performed By: #### L 100.0100, L500.2500 ####[facility] [address] [place], [address] Erythrocyte distribution width (RBC) [Ratio] 13.0 % Normal 11.6-14.6 [facility] Comment on above: Performed By: #### L 100.0100, L500.2500 ####[facility] [address] [place], [address] Hematocrit (Bld) [Volume fraction] 43.5 % Normal 37-47 [facility] Comment on above: Performed By: #### L 100.0100, L500.2500 ####[facility] [address] [place], [address] Hemoglobin (Bld) [Mass/Vol] 14.2 g/dL Normal 12.0-15.0 [facility] Comment on above: Performed By: #### L 100.0100, L500.2500 ####[facility] [address] [place], [address] IG% 0.800 Normal 0.0-0.9 [facility] Comment on above: Result Comment: IG% - Immature Granulocytes (promyelocytes, myelocytes andmetamyelocytes) > 1% indicates that a LEFT SHIFT is Present. Performed By: #### L 100.0100, L500.2500 ####[facility] [address] [place], [address] Lymphocytes/100 WBC (Bld) 4.6 % Low 19-41 [facility] Comment on above: Performed By: #### L 100.0100, L500.2500 ####[facility] [address] [place], [address] MCH (RBC) [Entitic mass] 27.7 pg Normal 27.0-32.0 [facility] Comment on above: Performed By: #### L 100.0100, L500.2500 ####[facility] [address] [place], [address] MCHC (RBC) [Mass/Vol] 32.6 g/dL Normal 32-36 [facility] Comment on above: Performed By: #### L 100.0100, L500.2500 ####[facility] [address] [place], [address] MCV (RBC) [Entitic vol] 84.8 fL Normal 81-99 [facility] Comment on above: Performed By: #### L 100.0100, L500.2500 ####[facility] [address] [place], [address] Monocytes/100 WBC (Bld) 3.9 % Normal 0-10 [facility] Comment on above: Performed By: #### L 100.0100, L500.2500 ####[facility] [address] [place], [address] Neutrophils/100 WBC (Bld) 90.6 % High 47-70 [facility] Comment on above: Performed By: #### L 100.0100, L500.2500 ####[facility] [address] [place], [address] Nucleated RBC (Bld) [#/Vol] 0 10*3/uL Normal 0-5 [facility] Comment on above: Performed By: #### L 100.0100, L500.2500 ####[facility] [address] [place], [address] Platelet mean volume (Bld) [Entitic vol] 10.2 fL Normal 6.2-12.0 [facility] Comment on above: Performed By: #### L 100.0100, L500.2500 ####[facility] [address] [place], [address] Platelets (Bld) [#/Vol] 176 10*3/uL Normal 150-450 [facility] Comment on above: Performed By: #### L 100.0100, L500.2500 ####[facility] [address] [place], [address] RBC (Bld) [#/Vol] 5.13 10*6/uL Normal 4.2-5.4 [facility] Comment on above: Performed By: #### L 100.0100, L500.2500 ####[facility] [address] [place], [address] RDW SD 40.3 fl Normal 35.1-43.9 [facility] Comment on above: Performed By: #### L 100.0100, L500.2500 ####[facility] [address] [place], [address] WBC (Bld) [#/Vol] 9.7 10*3/uL Normal 4.4-11.0 [facility] Comment on above: Performed By: #### L 100.0100, L500.2500 ####[facility] [address] [place], [address] Basic Metabolic Profile (BMP )on 10-05-2024 BUN/CRE 44.0 RATIO High 10-20 [facility] Comment on above: Performed By: #### L 100.0100, L500.2500 ####[facility] [address] [place], [address] Calcium [Mass/Vol] 8.5 mg/dL Normal 7.6-11.0 [facility] Comment on above: Performed By: #### L 100.0100, L500.2500 ####[facility] [address] [place], [address] Chloride [Moles/Vol] 94 mmol/L Low 98-[address] [facility] Comment on above: Performed By: #### L 100.0100, L500.2500 ####[facility] [address] [place], [address] CO2 [Moles/Vol] 36.3 mmol/L High 21.0-32.0 [facility] Comment on above: Performed By: #### L 100.0100, L500.2500 ####[facility] [address] [place], [address] Creatinine [Mass/Vol] 0.52 mg/dL Low 0.70-1.20 [facility] Comment on above: Performed By: #### L 100.0100, L500.2500 ####[facility] [address] [place], [address] ECRCL 64.35 ml/min Normal 50-250 [facility] Comment on above: Performed By: #### L 100.0100, L500.2500 ####[facility] [address] [place], [address] GAP 6 Normal 5-15 [facility] Comment on above: Performed By: #### L 100.0100, L500.2500 ####[facility] [address] [place], [address] GFR/1.73 sq M.predicted among non-blacks MDRD (S/P/Bld) [Vol rate/Area] 101 mL/min/{1.73_m2} Normal >60 [facility] Comment on above: Result Comment: mL/m in/1.73m2 CKD-EPI Creatinine Equation (2020) Performed By: #### L 100.0100, L500.2500 ####[facility] [address] [place], [address] Glucose [Mass/Vol] 130 mg/dL High 70-99 [facility] Comment on above: Performed By: #### L 100.0100, L500.2500 ####[facility] [address] [place], [address] Potassium [Moles/Vol] 4.7 mmol/L Normal 3.3-5.1 [facility] Comment on above: Result Comment: Hemo lysis present, Results??could be affected.?? Performed By: #### L 100.0100, L500.2500 ####[facility] [address] [place], [address] Sodium [Moles/Vol] 137 mmol/L Normal 133-145 [facility] Comment on above: Performed By: #### L 100.0100, L500.2500 ####[facility] [address] [place], [address] Urea nitrogen [Mass/Vol] 23 mg/dL High 4-19 [facility] Comment on above: Performed By: #### L 100.0100, L500.2500 ####[facility] [address] [place], [address] CBC W/Diff, Automatedon - 2-2024 Absolute Lymph 0.47 X10 3/uL Low 0.83-4.51 [facility] Comment on above: Performed By: #### L 100.0100, L500.2500 ####[facility] [address] [place], [address] Absolute Neut 8.2 X10 3/uL High 2.0-7.7 [facility] Comment on above: Performed By: #### L 100.0100, L500.2500 ####[facility] [address] [place], [address] Basophils/100 WBC (Bld) 0.1 % Normal 0-1 [facility] Comment on above: Performed By: #### L 100.0100, L500.2500 ####[facility] [address] [place], [address] Eosinophils/100 WBC (Bld) 0.0 % Normal 0-5 [facility] Comment on above: Performed By: #### L 100.0100, L500.2500 ####[facility] [address] [place], [address] Erythrocyte distribution width (RBC) [Ratio] 12.9 % Normal 11.6-14.6 [facility] Comment on above: Performed By: #### L 100.0100, L500.2500 ####[facility] [address] [place], [address] Hematocrit (Bld) [Volume fraction] 41.7 % Normal 37-47 [facility] Comment on above: Performed By: #### L 100.0100, L500.2500 ####[facility] [address] [place], [address] Hemoglobin (Bld) [Mass/Vol] 13.7 g/dL Normal 12.0-15.0 [facility] Comment on above: Performed By: #### L 100.0100, L500.2500 ####[facility] [address] [place], [address] IG% 0.600 Normal 0.0-0.9 [facility] Comment on above: Result Comment: IG% - Immature Granulocytes (promyelocytes, myelocytes andmetamyelocytes) > 1% indicates that a LEFT SHIFT is Present. Performed By: #### L 100.0100, L500.2500 ####[facility] [address] [place], [address] Lymphocytes/100 WBC (Bld) 5.2 % Low 19-41 [facility] Comment on above: Performed By: #### L 100.0100, L500.2500 ####[facility] [address] [place], [address] MCH (RBC) [Entitic mass] 28.0 pg Normal 27.0-32.0 [facility] Comment on above: Performed By: #### L 100.0100, L500.2500 ####[facility] [address] [place], [address] MCHC (RBC) [Mass/Vol] 32.9 g/dL Normal 32-36 [facility] Comment on above: Performed By: #### L 100.0100, L500.2500 ####[facility] [address] [place], [address] MCV (RBC) [Entitic vol] 85.3 fL Normal 81-99 [facility] Comment on above: Performed By: #### L 100.0100, L500.2500 ####[facility] [address] [place], [address] Monocytes/100 WBC (Bld) 3.0 % Normal 0-10 [facility] Comment on above: Performed By: #### L 100.0100, L500.2500 ####[facility] [address] [place], [address] Neutrophils/100 WBC (Bld) 91.1 % High 47-70 [facility] Comment on above: Performed By: #### L 100.0100, L500.2500 ####[facility] [address] [place], [address] Nucleated RBC (Bld) [#/Vol] 0 10*3/uL Normal 0-5 [facility] Comment on above: Performed By: #### L 100.0100, L500.2500 ####[facility] [address] [place], [address] Platelet mean volume (Bld) [Entitic vol] 10.6 fL Normal 6.2-12.0 [facility] Comment on above: Performed By: #### L 100.0100, L500.2500 ####[facility] [address] [place], [address] Platelets (Bld) [#/Vol] 172 10*3/uL Normal 150-450 [facility] Comment on above: Performed By: #### L 100.0100, L500.2500 ####[facility] [address] [place], [address] RBC (Bld) [#/Vol] 4.89 10*6/uL Normal 4.2-5.4 [facility] Comment on above: Performed By: #### L 100.0100, L500.2500 ####[facility] [address] [place], [address] RDW SD 39.9 fl Normal 35.1-43.9 [facility] Comment on above: Performed By: #### L 100.0100, L500.2500 ####[facility] [address] [place], [address] WBC (Bld) [#/Vol] 9.0 10*3/uL Normal 4.4-11.0 [facility] Comment on above: Performed By: #### L 100.0100, L500.2500 ####[facility] [address] [place], [address] Electrocardiogram reportOrde red By: Junito Madrid on 10-05-2024 EKG study [facility] [address] [facility] [place] [address] 12 Lead EKG 10/04/24 1439 MR#: [id number] Acct: [id number] Name: DENIA GONZALEZ Rep #:[id number] : 1955 69 From: Junito contreras MD Attending Dr: Dr. Lynne Schafer MD Status: ADM IN Ordering Dr: Lynne Schafer MD Date: 10/04/24 Location: [facility] Sex: F C Admitted: 09/29/24 Test [...] replaced Atrial fibrillation Confirmed by Junito Madrid ([id number]), editor school photograph LEORA RESTREPO ([id number]) on 10/05/2024 8:34:43 AM Referred By: Confirmed By: Junito Madrid 10/05/24 0834 Date _ Junito Madrid MD CC: Dr. Yoseph Fall MD; Dr. Lynne Schafer MD ~ Signed [facility] Work Phone: 12 Lead EKGon 10-04-2024 12 Lead EKG Normal [facility] Basic Metabolic Profile (BMP )on 10-04-2024 BUN/CRE 36.3 RATIO High 10-20 [facility] Comment on above: Performed By: #### L 100.0100, L500.2500 ####[facility] [address] [place], [address] Calcium [Mass/Vol] 8.7 mg/dL Normal 7.6-11.0 [facility] Comment on above: Performed By: #### L 100.0100, L500.2500 ####[facility] [address] [place], [address] Chloride [Moles/Vol] 94 mmol/L Low 98-[address] [facility] Comment on above: Performed By: #### L 100.0100, L500.2500 ####[facility] [address] [place], [address] CO2 [Moles/Vol] 35.4 mmol/L High 21.0-32.0 [facility] Comment on above: Performed By: #### L 100.0100, L500.2500 ####[facility] [address] [place], [address] Creatinine [Mass/Vol] 0.58 mg/dL Low 0.70-1.20 [facility] Comment on above: Performed By: #### L 100.0100, L500.2500 ####[facility] [address] [place], [address] ECRCL 63.56 ml/min Normal 50-250 [facility] Comment on above: Performed By: #### L 100.0100, L500.2500 ####[facility] [address] [place], [address] GAP 8 Normal 5-15 [facility] Comment on above: Performed By: #### L 100.0100, L500.2500 ####[facility] [address] [place], [address] GFR/1.73 sq M.predicted among non-blacks MDRD (S/P/Bld) [Vol rate/Area] 98 mL/min/{1.73_m2} Normal >60 [facility] Comment on above: Result Comment: mL/m in/1.73m2 CKD-EPI Creatinine Equation (2020) Performed By: #### L 100.0100, L500.2500 ####[facility] [address] [place], [address] Glucose [Mass/Vol] 125 mg/dL High 70-99 [facility] Comment on above: Performed By: #### L 100.0100, L500.2500 ####[facility] [address] [place], [address] Potassium [Moles/Vol] 4.6 mmol/L Normal 3.3-5.1 [facility] Comment on above: Performed By: #### L 100.0100, L500.2500 ####[facility] [address] [place], [address] Sodium [Moles/Vol] 137 mmol/L Normal 133-145 [facility] Comment on above: Performed By: #### L 100.0100, L500.2500 ####[facility] [address] [place], [address] Urea nitrogen [Mass/Vol] 21 mg/dL High 4-19 [facility] Comment on above: Performed By: #### L 100.0100, L500.2500 ####[facility] [address] [place], [address] CBC W/Diff, Automatedon 06- Absolute Lymph 0.46 X10 3/uL Low 0.83-4.51 [facility] Comment on above: Performed By: #### L 100.0100, L500.2500 ####[facility] [address] [place], [address] Absolute Neut 6.5 X10 3/uL Normal 2.0-7.7 [facility] Comment on above: Performed By: #### L 100.0100, L500.2500 ####[facility] [address] [place], [address] Basophils/100 WBC (Bld) 0.0 % Normal 0-1 [facility] Comment on above: Performed By: #### L 100.0100, L500.2500 ####[facility] [address] [place], [address] Eosinophils/100 WBC (Bld) 0.0 % Normal 0-5 [facility] Comment on above: Performed By: #### L 100.0100, L500.2500 ####[facility] [address] [place], [address] Erythrocyte distribution width (RBC) [Ratio] 12.9 % Normal 11.6-14.6 [facility] Comment on above: Performed By: #### L 100.0100, L500.2500 ####[facility] [address] [place], [address] Hematocrit (Bld) [Volume fraction] 41.4 % Normal 37-47 [facility] Comment on above: Performed By: #### L 100.0100, L500.2500 ####[facility] [address] [place], [address] Hemoglobin (Bld) [Mass/Vol] 13.9 g/dL Normal 12.0-15.0 [facility] Comment on above: Performed By: #### L 100.0100, L500.2500 ####[facility] [address] [place], [address] IG% 0.600 Normal 0.0-0.9 [facility] Comment on above: Result Comment: IG% - Immature Granulocytes (promyelocytes, myelocytes andmetamyelocytes) > 1% indicates that a LEFT SHIFT is Present. Performed By: #### L 100.0100, L500.2500 ####[facility] [address] [place], [address] Lymphocytes/100 WBC (Bld) 6.4 % Low 19-41 [facility] Comment on above: Performed By: #### L 100.0100, L500.2500 ####[facility] [address] [place], [address] MCH (RBC) [Entitic mass] 28.6 pg Normal 27.0-32.0 [facility] Comment on above: Performed By: #### L 100.0100, L500.2500 ####[facility] [address] [place], [address] MCHC (RBC) [Mass/Vol] 33.6 g/dL Normal 32-36 [facility] Comment on above: Performed By: #### L 100.0100, L500.2500 ####[facility] [address] [place], [address] MCV (RBC) [Entitic vol] 85.2 fL Normal 81-99 [facility] Comment on above: Performed By: #### L 100.0100, L500.2500 ####[facility] [address] [place], [address] Monocytes/100 WBC (Bld) 2.9 % Normal 0-10 [facility] Comment on above: Performed By: #### L 100.0100, L500.2500 ####[facility] [address] [place], [address] Neutrophils/100 WBC (Bld) 90.1 % High 47-70 [facility] Comment on above: Performed By: #### L 100.0100, L500.2500 ####[facility] [address] [place], [address] Nucleated RBC (Bld) [#/Vol] 0 10*3/uL Normal 0-5 [facility] Comment on above: Performed By: #### L 100.0100, L500.2500 ####[facility] [address] [place], [address] Platelet mean volume (Bld) [Entitic vol] 9.9 fL Normal 6.2-12.0 [facility] Comment on above: Performed By: #### L 100.0100, L500.2500 ####[facility] [address] [place], [address] Platelets (Bld) [#/Vol] 160 10*3/uL Normal 150-450 [facility] Comment on above: Performed By: #### L 100.0100, L500.2500 ####[facility] [address] [place], [address] RBC (Bld) [#/Vol] 4.86 10*6/uL Normal 4.2-5.4 [facility] Comment on above: Performed By: #### L 100.0100, L500.2500 ####[facility] [address] [place], [address] RDW SD 39.8 fl Normal 35.1-43.9 [facility] Comment on above: Performed By: #### L 100.0100, L500.2500 ####[facility] [address] [place], [address] WBC (Bld) [#/Vol] 7.2 10*3/uL Normal 4.4-11.0 [facility] Comment on above: Performed By: #### L 100.0100, L500.2500 ####[facility] [address] [place], [address] Basic Metabolic Profile (BMP )on 10-03-2024 BUN/CRE 34.9 RATIO High 10-20 [facility] Comment on above: Performed By: #### L 506.0400, L500.2500, L100.0100 ####[facility] [address] [place], [address] Calcium [Mass/Vol] 8.8 mg/dL Normal 7.6-11.0 [facility] Comment on above: Performed By: #### L 506.0400, L500.2500, L100.0100 ####[facility] [address] [place], [address] Chloride [Moles/Vol] 93 mmol/L Low 98-[address] [facility] Comment on above: Performed By: #### L 506.0400, L500.2500, L100.0100 ####[facility] [address] [place], [address] CO2 [Moles/Vol] 34.0 mmol/L High 21.0-32.0 [facility] Comment on above: Performed By: #### L 506.0400, L500.2500, L100.0100 ####[facility] [address] [place], [address] Creatinine [Mass/Vol] 0.65 mg/dL Low 0.70-1.20 [facility] Comment on above: Performed By: #### L 506.0400, L500.2500, L100.0100 ####[facility] [address] [place], [address] ECRCL 63.56 ml/min Normal 50-250 [facility] Comment on above: Performed By: #### L 506.0400, L500.2500, L100.0100 ####[facility] [address] [place], [address] GAP 9 Normal 5-15 [facility] Comment on above: Performed By: #### L 506.0400, L500.2500, L100.0100 ####[facility] [address] [place], [address] GFR/1.73 sq M.predicted among non-blacks MDRD (S/P/Bld) [Vol rate/Area] 95 mL/min/{1.73_m2} Normal >60 [facility] Comment on above: Result Comment: mL/m in/1.73m2 CKD-EPI Creatinine Equation (2020) Performed By: #### L 506.0400, L500.2500, L100.0100 ####[facility] [address] [place], [address] Glucose [Mass/Vol] 220 mg/dL High 70-99 [facility] Comment on above: Performed By: #### L 506.0400, L500.2500, L100.0100 ####[facility] [address] [place], [address] Potassium [Moles/Vol] 4.4 mmol/L Normal 3.3-5.1 [facility] Comment on above: Performed By: #### L 506.0400, L500.2500, L100.0100 ####[facility] [address] [place], [address] Sodium [Moles/Vol] 135 mmol/L Normal 133-145 [facility] Comment on above: Performed By: #### L 506.0400, L500.2500, L100.0100 ####[facility] [address] [place], [address] Urea nitrogen [Mass/Vol] 23 mg/dL High 4-19 [facility] Comment on above: Performed By: #### L 506.0400, L500.2500, L100.0100 ####[facility] [address] [place], [address] CBC W/Diff, Automatedon 06-1 0-2025 Absolute Lymph 0.48 X10 3/uL Low 0.83-4.51 [facility] Comment on above: Performed By: #### L 506.0400, L500.2500, L100.0100 ####[facility] [address] [place], [address] Absolute Neut 8.5 X10 3/uL High 2.0-7.7 [facility] Comment on above: Performed By: #### L 506.0400, L500.2500, L100.0100 ####[facility] [address] [place], [address] Basophils/100 WBC (Bld) 0.1 % Normal 0-1 [facility] Comment on above: Performed By: #### L 506.0400, L500.2500, L100.0100 ####[facility] [address] [place], [address] Eosinophils/100 WBC (Bld) 0.0 % Normal 0-5 [facility] Comment on above: Performed By: #### L 506.0400, L500.2500, L100.0100 ####[facility] [address] [place], [address] Erythrocyte distribution width (RBC) [Ratio] 13.1 % Normal 11.6-14.6 [facility] Comment on above: Performed By: #### L 506.0400, L500.2500, L100.0100 ####[facility] [address] [place], [address] Hematocrit (Bld) [Volume fraction] 41.4 % Normal 37-47 [facility] Comment on above: Performed By: #### L 506.0400, L500.2500, L100.0100 ####[facility] [address] [place], [address] Hemoglobin (Bld) [Mass/Vol] 13.6 g/dL Normal 12.0-15.0 [facility] Comment on above: Performed By: #### L 506.0400, L500.2500, L100.0100 ####[facility] [address] [place], [address] IG% 0.300 Normal 0.0-0.9 [facility] Comment on above: Result Comment: IG% - Immature Granulocytes (promyelocytes, myelocytes andmetamyelocytes) > 1% indicates that a LEFT SHIFT is Present. Performed By: #### L 506.0400, L500.2500, L100.0100 ####[facility] [address] [place], [address] Lymphocytes/100 WBC (Bld) 5.2 % Low 19-41 [facility] Comment on above: Performed By: #### L 506.0400, L500.2500, L100.0100 ####[facility] [address] [place], [address] MCH (RBC) [Entitic mass] 28.2 pg Normal 27.0-32.0 [facility] Comment on above: Performed By: #### L 506.0400, L500.2500, L100.0100 ####[facility] [address] [place], [address] MCHC (RBC) [Mass/Vol] 32.9 g/dL Normal 32-36 [facility] Comment on above: Performed By: #### L 506.0400, L500.2500, L100.0100 ####[facility] [address] [place], [address] MCV (RBC) [Entitic vol] 85.7 fL Normal 81-99 [facility] Comment on above: Performed By: #### L 506.0400, L500.2500, L100.0100 ####[facility] [address] [place], [address] Monocytes/100 WBC (Bld) 1.2 % Normal 0-10 [facility] Comment on above: Performed By: #### L 506.0400, L500.2500, L100.0100 ####[facility] [address] [place], [address] Neutrophils/100 WBC (Bld) 93.2 % High 47-70 [facility] Comment on above: Performed By: #### L 506.0400, L500.2500, L100.0100 ####[facility] [address] [place], [address] Nucleated RBC (Bld) [#/Vol] 0 10*3/uL Normal 0-5 [facility] Comment on above: Performed By: #### L 506.0400, L500.2500, L100.0100 ####[facility] [address] [place], [address] Platelet mean volume (Bld) [Entitic vol] 10.2 fL Normal 6.2-12.0 [facility] Comment on above: Performed By: #### L 506.0400, L500.2500, L100.0100 ####[facility] [address] [place], [address] Platelets (Bld) [#/Vol] 184 10*3/uL Normal 150-450 [facility] Comment on above: Performed By: #### L 506.0400, L500.2500, L100.0100 ####[facility] [address] [place], [address] RBC (Bld) [#/Vol] 4.83 10*6/uL Normal 4.2-5.4 [facility] Comment on above: Performed By: #### L 506.0400, L500.2500, L100.0100 ####[facility] [address] [place], [address] RDW SD 40.3 fl Normal 35.1-43.9 [facility] Comment on above: Performed By: #### L 506.0400, L500.2500, L100.0100 ####[facility] [address] [place], [address] WBC (Bld) [#/Vol] 9.2 10*3/uL Normal 4.4-11.0 [facility] Comment on above: Performed By: #### L 506.0400, L500.2500, L100.0100 ####[facility] [address] [place], [address] Electrocardiogram reportOrde red By: Junito Madrid on 10-03-2024 EKG study [facility] [address] [place] [address] 12 Lead EKG 10/02/24 1903 MR#: [id number] Acct: [id number] Name: DENIA GONZALEZ Rep #:[id number] : 1955 69 From: Junito contreras MD Attending Dr: Dr. Lynne Schafer MD Status: ADM IN Ordering Dr: Junito Madrid MD Date: 10/02/24 Location: [facility] Sex: F C Admitted: 09/29/24 Test [...] was found Confirmed by Junito Madrid ([id number]), editor school photograph LEORA RESTREPO ([id number]) on 10/03/2024 11:08:49 AM Referred By: Confirmed By: Junito Madrid 10/03/24 1108 Date _ Junito Madrid MD CC: Dr. Yoseph Fall MD; Dr. Junito Madrid MD; Dr. Lynne Schafer MD ~ Signed [facility] Work Phone: Respiratory Cultureon 2024 RESPC Normal [facility] Comment on above: Performed By: #### M 100.2400, M100.2000 ####[facility] [address] [place], [address] T4 Free Directon 10-03-2024 T4 FREE DIRECT 1.20 ng/dL Normal 0.76-1.46 [facility] Comment on above: Performed By: #### L 506.0400, L500.2500, L100.0100 ####[facility] [address] [place], [address] T4 freeOrdered By: Lynne soliz on 10-03-2024 Free T4 [Mass/Vol] 1.20 ng/dL 0.76-1.46 [facility] 12 Lead EKGon 10-02-2024 12 Lead EKG Normal [facility] 12 Lead EKG Normal [facility] Basic Metabolic Profile (BMP )on 10-02-2024 BUN/CRE 42.5 RATIO High 10-20 [facility] Comment on above: Performed By: #### L 100.0100, L500.2500 ####[facility] [address] [place], [address] Calcium [Mass/Vol] 8.9 mg/dL Normal 7.6-11.0 [facility] Comment on above: Performed By: #### L 100.0100, L500.2500 ####[facility] [address] [place], [address] Chloride [Moles/Vol] 95 mmol/L Low 98-[address] [facility] Comment on above: Performed By: #### L 100.0100, L500.2500 ####[facility] [address] [place], [address] CO2 [Moles/Vol] 34.5 mmol/L High 21.0-32.0 [facility] Comment on above: Performed By: #### L 100.0100, L500.2500 ####[facility] [address] [place], [address] Creatinine [Mass/Vol] 0.55 mg/dL Low 0.70-1.20 [facility] Comment on above: Performed By: #### L 100.0100, L500.2500 ####[facility] [address] [place], [address] ECRCL 63.64 ml/min Normal 50-250 [facility] Comment on above: Performed By: #### L 100.0100, L500.2500 ####[facility] [address] [place], [address] GAP 9 Normal 5-15 [facility] Comment on above: Performed By: #### L 100.0100, L500.2500 ####[facility] [address] [place], [address] GFR/1.73 sq M.predicted among non-blacks MDRD (S/P/Bld) [Vol rate/Area] 99 mL/min/{1.73_m2} Normal >60 [facility] Comment on above: Result Comment: mL/m in/1.73m2 CKD-EPI Creatinine Equation (2020) Performed By: #### L 100.0100, L500.2500 ####[facility] [address] [place], [address] Glucose [Mass/Vol] 113 mg/dL High 70-99 [facility] Comment on above: Performed By: #### L 100.0100, L500.2500 ####[facility] [address] [place], [address] Potassium [Moles/Vol] 4.4 mmol/L Normal 3.3-5.1 [facility] Comment on above: Performed By: #### L 100.0100, L500.2500 ####[facility] [address] [place], [address] Sodium [Moles/Vol] 138 mmol/L Normal 133-145 [facility] Comment on above: Performed By: #### L 100.0100, L500.2500 ####[facility] [address] [place], [address] Urea nitrogen [Mass/Vol] 23 mg/dL High 4-19 [facility] Comment on above: Performed By: #### L 100.0100, L500.2500 ####[facility] [address] [place], [address] CBC W/Diff, Automatedon 06-0 9-2024 Absolute Lymph 0.50 X10 3/uL Low 0.83-4.51 [facility] Comment on above: Performed By: #### L 100.0100, L500.2500 ####[facility] [address] [place], [address] Absolute Neut 7.3 X10 3/uL Normal 2.0-7.7 [facility] Comment on above: Performed By: #### L 100.0100, L500.2500 ####[facility] [address] [place], [address] Basophils/100 WBC (Bld) 0.1 % Normal 0-1 [facility] Comment on above: Performed By: #### L 100.0100, L500.2500 ####[facility] [address] [place], [address] Eosinophils/100 WBC (Bld) 0.0 % Normal 0-5 [facility] Comment on above: Performed By: #### L 100.0100, L500.2500 ####[facility] [address] [place], [address] Erythrocyte distribution width (RBC) [Ratio] 13.1 % Normal 11.6-14.6 [facility] Comment on above: Performed By: #### L 100.0100, L500.2500 ####[facility] [address] [place], [address] Hematocrit (Bld) [Volume fraction] 40.4 % Normal 37-47 [facility] Comment on above: Performed By: #### L 100.0100, L500.2500 ####[facility] [address] [place], [address] Hemoglobin (Bld) [Mass/Vol] 13.4 g/dL Normal 12.0-15.0 [facility] Comment on above: Performed By: #### L 100.0100, L500.2500 ####[facility] [address] [place], [address] IG% 0.700 Normal 0.0-0.9 [facility] Comment on above: Result Comment: IG% - Immature Granulocytes (promyelocytes, myelocytes andmetamyelocytes) > 1% indicates that a LEFT SHIFT is Present. Performed By: #### L 100.0100, L500.2500 ####[facility] [address] [place], [address] Lymphocytes/100 WBC (Bld) 6.1 % Low 19-41 [facility] Comment on above: Performed By: #### L 100.0100, L500.2500 ####[facility] [address] [place], [address] MCH (RBC) [Entitic mass] 27.9 pg Normal 27.0-32.0 [facility] Comment on above: Performed By: #### L 100.0100, L500.2500 ####[facility] [address] [place], [address] MCHC (RBC) [Mass/Vol] 33.2 g/dL Normal 32-36 [facility] Comment on above: Performed By: #### L 100.0100, L500.2500 ####[facility] [address] [place], [address] MCV (RBC) [Entitic vol] 84.0 fL Normal 81-99 [facility] Comment on above: Performed By: #### L 100.0100, L500.2500 ####[facility] [address] [place], [address] Monocytes/100 WBC (Bld) 3.3 % Normal 0-10 [facility] Comment on above: Performed By: #### L 100.0100, L500.2500 ####[facility] [address] [place], [address] Neutrophils/100 WBC (Bld) 89.8 % High 47-70 [facility] Comment on above: Performed By: #### L 100.0100, L500.2500 ####[facility] [address] [place], [address] Nucleated RBC (Bld) [#/Vol] 0 10*3/uL Normal 0-5 [facility] Comment on above: Performed By: #### L 100.0100, L500.2500 ####[facility] [address] [place], [address] Platelet mean volume (Bld) [Entitic vol] 9.7 fL Normal 6.2-12.0 [facility] Comment on above: Performed By: #### L 100.0100, L500.2500 ####[facility] [address] [place], [address] Platelets (Bld) [#/Vol] 172 10*3/uL Normal 150-450 [facility] Comment on above: Performed By: #### L 100.0100, L500.2500 ####[facility] [address] [place], [address] RBC (Bld) [#/Vol] 4.81 10*6/uL Normal 4.2-5.4 [facility] Comment on above: Performed By: #### L 100.0100, L500.2500 ####[facility] [address] [place], [address] RDW SD 39.8 fl Normal 35.1-43.9 [facility] Comment on above: Performed By: #### L 100.0100, L500.2500 ####[facility] [address] [place], [address] WBC (Bld) [#/Vol] 8.2 10*3/uL Normal 4.4-11.0 [facility] Comment on above: Performed By: #### L 100.0100, L500.2500 ####[facility] [address] [place], [address] Consultation - Cardiologyon 10-02-2024 Consultation - Cardiology Normal [facility] Echo Completeon 10-02-2024 Echo Complete Normal [facility] Echocardiogram study reportO rdered By: Dillon Lopez on 10-02-2024 Study report [facility] [address] [place] [address] Echo Complete 10/02/24 1337 MR#: [id number] Acct: [id number] Name: DENIA GONZALEZ Rep #:[id number] : 1955 69 From: Dillon Lopez MD [...] Dictated: 10/02/24 1337 Date Transcribed: 10/02/24 1424 Dive Superintendent: Signed [facility] Work Phone: Electrocardiogram reportOrde red By: Junito Madrid on 10-02-2024 EKG study [facility] Services [address] [place] [address] 12 Lead EKG 10/02/24 09 MR#: [id number] Acct: [id number] Name: DENIA GONZALEZ Rep #:[id number] : 1955 69 From: Junito contreras MD Attending Dr: Dr. Lynne Schafer MD Status: ADM IN Ordering Dr: Lynne Schafer MD Date: 10/02/24 Location: [facility] Sex: F C Admitted: 09/29/24 Test [...] DATA IS UNCONFIRMED Confirmed by Junito Madrid ([id number]), editor school photograph LEORA RESTREPO ([id number]) on 10/02/2024 10:43:05 AM Referred By: Confirmed By: Junito Madrid 10/02/24 1043 Date _ Junito Madrid MD CC: Dr. Yoseph Fall MD; Dr. Lynne Schafer MD ~ Signed [facility] Work Phone: Gram Stainon 10-02-2024 GS Acceptable Specimen? Yes (<25 Epithelial cells per/lpf) Gram Stain 2+ Gram positive cocci 2+ Gram positive rods 2+ Gram negative rods Normal [facility] Comment on above: Performed By: #### M 100.2400, M100.2000 ####[facility] [address] [place], [address] L499.0042on 10-02-2024 Trop T High Sen 23 ng/L High <=14 [facility] Comment on above: Performed By: #### L 499.0042 ####[facility] [address] [place], [address] L499.0043on 10-02-2024 Trop T High Sen 24 ng/L High <=14 [facility] Comment on above: Performed By: #### L 499.0043 ####[facility] [address] [place], [address] L501.4021on 10-02-2024 Trop T High Sen 23 ng/L High <=14 [facility] Comment on above: Performed By: #### L 501.4021 ####[facility] [address] [place], [address] Magnesiumon 10-02-2024 Magnesium [Mass/Vol] 2.1 mg/dL Normal 1.5-2.[address] [facility] Comment on above: Performed By: #### L 501.9520, L501.5200 ####[facility] [address] [place], [address] TSH DL <= 0.005 mIU/L QnOrde red By: Lynne Schafer on 10-02-2024 TSH Qn 0.281 uIU/mL Low 0.300-4.200 [facility] Thyroid Stim Hormone (TSH)on 10-02-2024 TSH 0.281 uIU/mL Low 0.300-4.200 [facility] Comment on above: Performed By: #### L 501.9520, L501.5200 ####[facility] [address] [place], [address] Troponin T.cardiac [Mass/vol ume] in Serum or Plasma by High sensitivity methodOrdered By: Lynne Schafer on 10-02-2024 Troponin T.cardiac High sensitivity method [Mass/Vol] 24 ng/L High <14 [facility] Troponin T.cardiac High sensitivity method [Mass/Vol] 23 ng/L High <14 [facility] Troponin T.cardiac High sensitivity method [Mass/Vol] 23 ng/L High <14 [facility] Basic Metabolic Profile (BMP )on 10-01-2024 BUN/CRE 35.9 RATIO High 10-20 [facility] Comment on above: Performed By: #### L 500.2500, L100.0100 ####[facility] [address] [place], [address] Calcium [Mass/Vol] 9.2 mg/dL Normal 7.6-11.0 [facility] Comment on above: Performed By: #### L 500.2500, L100.0100 ####[facility] [address] [place], [address] Chloride [Moles/Vol] 94 mmol/L Low 98-[address] [facility] Comment on above: Performed By: #### L 500.2500, L100.0100 ####[facility] [address] [place], [address] CO2 [Moles/Vol] 34.2 mmol/L High 21.0-32.0 [facility] Comment on above: Performed By: #### L 500.2500, L100.0100 ####[facility] [address] [place], [address] Creatinine [Mass/Vol] 0.59 mg/dL Low 0.70-1.20 [facility] Comment on above: Performed By: #### L 500.2500, L100.0100 ####[facility] [address] [place], [address] ECRCL 65.06 ml/min Normal 50-250 [facility] Comment on above: Performed By: #### L 500.2500, L100.0100 ####[facility] [address] [place], [address] GAP 10 Normal 5-15 [facility] Comment on above: Performed By: #### L 500.2500, L100.0100 ####[facility] [address] [place], [address] GFR/1.73 sq M.predicted among non-blacks MDRD (S/P/Bld) [Vol rate/Area] 97 mL/min/{1.73_m2} Normal >60 [facility] Comment on above: Result Comment: mL/m in/1.73m2 CKD-EPI Creatinine Equation (2020) Performed By: #### L 500.2500, L100.0100 ####[facility] [address] [place], [address] Glucose [Mass/Vol] 111 mg/dL High 70-99 [facility] Comment on above: Performed By: #### L 500.2500, L100.0100 ####[facility] [address] [place], [address] Potassium [Moles/Vol] 4.1 mmol/L Normal 3.3-5.1 [facility] Comment on above: Performed By: #### L 500.2500, L100.0100 ####[facility] [address] [place], [address] Sodium [Moles/Vol] 138 mmol/L Normal 133-145 [facility] Comment on above: Performed By: #### L 500.2500, L100.0100 ####[facility] [address] [place], [address] Urea nitrogen [Mass/Vol] 21 mg/dL High 4-19 [facility] Comment on above: Performed By: #### L 500.2500, L100.0100 ####[facility] [address] [place], [address] CBC W/Diff, Automatedon 06-0 8-5 Absolute Lymph 0.58 X10 3/uL Low 0.83-4.51 [facility] Comment on above: Performed By: #### L 500.2500, L100.0100 ####[facility] [address] [place], [address] Absolute Neut 7.6 X10 3/uL Normal 2.0-7.7 [facility] Comment on above: Performed By: #### L 500.2500, L100.0100 ####[facility] [address] [place], [address] Basophils/100 WBC (Bld) 0.1 % Normal 0-1 [facility] Comment on above: Performed By: #### L 500.2500, L100.0100 ####[facility] [address] [place], [address] Eosinophils/100 WBC (Bld) 0.0 % Normal 0-5 [facility] Comment on above: Performed By: #### L 500.2500, L100.0100 ####[facility] [address] [place], [address] Erythrocyte distribution width (RBC) [Ratio] 12.9 % Normal 11.6-14.6 [facility] Comment on above: Performed By: #### L 500.2500, L100.0100 ####[facility] [address] [place], [address] Hematocrit (Bld) [Volume fraction] 40.9 % Normal 37-47 [facility] Comment on above: Performed By: #### L 500.2500, L100.0100 ####[facility] [address] [place], [address] Hemoglobin (Bld) [Mass/Vol] 13.5 g/dL Normal 12.0-15.0 [facility] Comment on above: Performed By: #### L 500.2500, L100.0100 ####[facility] [address] [place], [address] IG% 0.500 Normal 0.0-0.9 [facility] Comment on above: Result Comment: IG% - Immature Granulocytes (promyelocytes, myelocytes andmetamyelocytes) > 1% indicates that a LEFT SHIFT is Present. Performed By: #### L 500.2500, L100.0100 ####[facility] [address] [place], [address] Lymphocytes/100 WBC (Bld) 6.8 % Low 19-41 [facility] Comment on above: Performed By: #### L 500.2500, L100.0100 ####[facility] [address] [place], [address] MCH (RBC) [Entitic mass] 27.6 pg Normal 27.0-32.0 [facility] Comment on above: Performed By: #### L 500.2500, L100.0100 ####[facility] [address] [place], [address] MCHC (RBC) [Mass/Vol] 33.0 g/dL Normal 32-36 [facility] Comment on above: Performed By: #### L 500.2500, L100.0100 ####[facility] [address] [place], [address] MCV (RBC) [Entitic vol] 83.5 fL Normal 81-99 [facility] Comment on above: Performed By: #### L 500.2500, L100.0100 ####[facility] [address] [place], [address] Monocytes/100 WBC (Bld) 3.6 % Normal 0-10 [facility] Comment on above: Performed By: #### L 500.2500, L100.0100 ####[facility] [address] [place], [address] Neutrophils/100 WBC (Bld) 89.0 % High 47-70 [facility] Comment on above: Performed By: #### L 500.2500, L100.0100 ####[facility] [address] [place], [address] Nucleated RBC (Bld) [#/Vol] 0 10*3/uL Normal 0-5 [facility] Comment on above: Performed By: #### L 500.2500, L100.0100 ####[facility] [address] [place], [address] Platelet mean volume (Bld) [Entitic vol] 9.8 fL Normal 6.2-12.0 [facility] Comment on above: Performed By: #### L 500.2500, L100.0100 ####[facility] [address] [place], [address] Platelets (Bld) [#/Vol] 176 10*3/uL Normal 150-450 [facility] Comment on above: Performed By: #### L 500.2500, L100.0100 ####[facility] [address] [place], [address] RBC (Bld) [#/Vol] 4.90 10*6/uL Normal 4.2-5.4 [facility] Comment on above: Performed By: #### L 500.2500, L100.0100 ####[facility] [address] [place], [address] RDW SD 39.2 fl Normal 35.1-43.9 [facility] Comment on above: Performed By: #### L 500.2500, L100.0100 ####[facility] [address] [place], [address] WBC (Bld) [#/Vol] 8.5 10*3/uL Normal 4.4-11.0 [facility] Comment on above: Performed By: #### L 500.2500, L100.0100 ####[facility] [address] [place], [address] Bilirubin, totalOrdered By: Dionne Porter on 09-30-2024 Bilirubin [Mass/Vol] 0.27 mg/dL Normal 0.00-1.[address] [facility] Comment on above: Performed By: #### L 100.0100, L500.4050 ####[facility] [address] [place], [address] CBC W/Diff, Automatedon Absolute Lymph 0.61 X10 3/uL Low 0.83-4.51 [facility] Comment on above: Performed By: #### L 100.0100, L500.4050 ####[facility] [address] [place], [address] Absolute Neut 6.8 X10 3/uL Normal 2.0-7.7 [facility] Comment on above: Performed By: #### L 100.0100, L500.4050 ####[facility] [address] [place], [address] Basophils/100 WBC (Bld) 0.0 % Normal 0-1 [facility] Comment on above: Performed By: #### L 100.0100, L500.4050 ####[facility] [address] [place], [address] Eosinophils/100 WBC (Bld) 0.0 % Normal 0-5 [facility] Comment on above: Performed By: #### L 100.0100, L500.4050 ####[facility] [address] [place], [address] Erythrocyte distribution width (RBC) [Ratio] 13.0 % Normal 11.6-14.6 [facility] Comment on above: Performed By: #### L 100.0100, L500.4050 ####[facility] [address] [place], [address] Hematocrit (Bld) [Volume fraction] 38.4 % Normal 37-47 [facility] Comment on above: Performed By: #### L 100.0100, L500.4050 ####[facility] [address] [place], [address] Hemoglobin (Bld) [Mass/Vol] 12.6 g/dL Normal 12.0-15.0 [facility] Comment on above: Performed By: #### L 100.0100, L500.4050 ####[facility] [address] [place], [address] IG% 0.400 Normal 0.0-0.9 [facility] Comment on above: Result Comment: IG% - Immature Granulocytes (promyelocytes, myelocytes andmetamyelocytes) > 1% indicates that a LEFT SHIFT is Present. Performed By: #### L 100.0100, L500.4050 ####[facility] [address] [place], [address] Lymphocytes/100 WBC (Bld) 8.0 % Low 19-41 [facility] Comment on above: Performed By: #### L 100.0100, L500.4050 ####[facility] [address] [place], [address] MCH (RBC) [Entitic mass] 27.9 pg Normal 27.0-32.0 [facility] Comment on above: Performed By: #### L 100.0100, L500.4050 ####[facility] [address] [place], [address] MCHC (RBC) [Mass/Vol] 32.8 g/dL Normal 32-36 [facility] Comment on above: Performed By: #### L 100.0100, L500.4050 ####[facility] [address] [place], [address] MCV (RBC) [Entitic vol] 85.0 fL Normal 81-99 [facility] Comment on above: Performed By: #### L 100.0100, L500.4050 ####[facility] [address] [place], [address] Monocytes/100 WBC (Bld) 3.5 % Normal 0-10 [facility] Comment on above: Performed By: #### L 100.0100, L500.4050 ####[facility] [address] [place], [address] Neutrophils/100 WBC (Bld) 88.1 % High 47-70 [facility] Comment on above: Performed By: #### L 100.0100, L500.4050 ####[facility] [address] [place], [address] Nucleated RBC (Bld) [#/Vol] 0 10*3/uL Normal 0-5 [facility] Comment on above: Performed By: #### L 100.0100, L500.4050 ####[facility] [address] [place], [address] Platelet mean volume (Bld) [Entitic vol] 10.0 fL Normal 6.2-12.0 [facility] Comment on above: Performed By: #### L 100.0100, L500.4050 ####[facility] [address] [place], [address] Platelets (Bld) [#/Vol] 177 10*3/uL Normal 150-450 [facility] Comment on above: Performed By: #### L 100.0100, L500.4050 ####[facility] [address] [place], [address] RBC (Bld) [#/Vol] 4.52 10*6/uL Normal 4.2-5.4 [facility] Comment on above: Performed By: #### L 100.0100, L500.4050 ####[facility] [address] [place], [address] RDW SD 39.9 fl Normal 35.1-43.9 [facility] Comment on above: Performed By: #### L 100.0100, L500.4050 ####[facility] [address] [place], [address] WBC (Bld) [#/Vol] 7.7 10*3/uL Normal 4.4-11.0 [facility] Comment on above: Performed By: #### L 100.0100, L500.4050 ####[facility] [address] [place], [address] Comprehensive Metabolic Prof ilon 09-30-2024 ALK PHOS 60 U/L Normal 35-104 [facility] Comment on above: Performed By: #### L 100.0100, L500.4050 ####[facility] [address] [place], [address] BUN/CRE 32.5 RATIO High 10-20 [facility] Comment on above: Performed By: #### L 100.0100, L500.4050 ####[facility] [address] [place], [address] Calcium [Mass/Vol] 9.0 mg/dL Normal 7.6-11.0 [facility] Comment on above: Performed By: #### L 100.0100, L500.4050 ####[facility] [address] [place], [address] Chloride [Moles/Vol] 95 mmol/L Low 98-[address] [facility] Comment on above: Performed By: #### L 100.0100, L500.4050 ####[facility] [address], [address] CO2 [Moles/Vol] 33.3 mmol/L High 21.0-32.0 [facility] Comment on above: Performed By: #### L 100.0100, L500.4050 ####[facility] [address] [place], [address] Creatinine [Mass/Vol] 0.58 mg/dL Low 0.70-1.20 [facility] Comment on above: Performed By: #### L 100.0100, L500.4050 ####[facility] [address] [place], [address] ECRCL 65.06 ml/min Normal 50-250 [facility] Comment on above: Performed By: #### L 100.0100, L500.4050 ####[facility] [address] [place], [address] GAP 10 Normal 5-15 [facility] Comment on above: Performed By: #### L 100.0100, L500.4050 ####[facility] [address], [address] GFR/1.73 sq M.predicted among non-blacks MDRD (S/P/Bld) [Vol rate/Area] 98 mL/min/{1.73_m2} Normal >60 [facility] Comment on above: Result Comment: mL/m in/1.73m2 CKD-EPI Creatinine Equation (2020) Performed By: #### L 100.0100, L500.4050 ####[facility] [address] [place], [address] Glucose [Mass/Vol] 127 mg/dL High 70-99 [facility] Comment on above: Performed By: #### L 100.0100, L500.4050 ####[facility] [address] [place], [address] Potassium [Moles/Vol] 4.6 mmol/L Normal 3.3-5.1 [facility] Comment on above: Result Comment: Hemo lysis present, Results??could be affected.?? Performed By: #### L 100.0100, L500.4050 ####[facility] [address] [place], [address] Sodium [Moles/Vol] 138 mmol/L Normal 133-145 [facility] Comment on above: Performed By: #### L 100.0100, L500.4050 ####[facility] [address] [place], [address] T PROT 6.3 g/dL Normal 5.9-8.4 [facility] Comment on above: Performed By: #### L 100.0100, L500.4050 ####[facility] [address] [place], [address] Urea nitrogen [Mass/Vol] 19 mg/dL Normal 4-19 [facility] Comment on above: Performed By: #### L 100.0100, L500.4050 ####[facility] [address] [place], [address] Comprehensive Metabolic Prof ilOrdered By: Dionne Porter on 09-30-2024 AST [Catalytic activity/Vol] 17 U/L Normal <=31 [facility] Comment on above: Hemolysis present, R esults could be affected. Result Comment: Hemo lysis present, Results??could be affected.?? Performed By: #### L 100.0100, L500.4050 ####[facility] [address] [place], [address] No Panel InformationOrdered By: Dionne Porter on 09-30-2024 17 U/L <32 [facility] Serum globulin measurementOr dered By: Dionne Charlotte on 09-30-2024 Globulin (S) [Mass/Vol] 2.5 g/dL Normal 2.2-4.2 [facility] Comment on above: Performed By: #### L 100.0100, L500.4050 ####[facility] [address] [place], [address] Serum or plasma alanine retana otransferase (ALT) measurementOrdered By: Dionne Charlotte on 09-30-2024 ALT [Catalytic activity/Vol] 9 U/L Normal <=34 [facility] Comment on above: Performed By: #### L 100.0100, L500.4050 ####[facility] [address] [place], [address] Serum or plasma albumin kadi urement (mass/volume)Ordered By: Dionne Porter on 09-30-2024 Albumin [Mass/Vol] 3.8 g/dL Normal 3.4-4.8 [facility] Comment on above: Performed By: #### L 100.0100, L500.4050 ####[facility] [address] [place], [address] Serum or plasma albumin/glob ulin mass ratioOrdered By: Dionne Charlotte on 09-30-2024 Albumin/Globulin [Mass ratio] 1.5 {ratio} Normal 0.9-2.4 [facility] Comment on above: Performed By: #### L 100.0100, L500.4050 ####[facility] [address] [place], [address] Serum or plasma alkaline renetta sphatase measurementOrdered By: Dionne Porter on 09-30-2024 ALP [Catalytic activity/Vol] 60 U/L 35-104 [facility] Total proteinOrdered By: Arthur Porter on 09-30-2024 Protein [Mass/Vol] 6.3 g/dL 5.9-8.4 [facility] Absolute lymphocyte countOrd ered By: Riley Jeff on 09-29-2024 Lymphocytes Auto (Unsp spec) [#/Vol] 1.40 10*3/uL 0.83-4.51 [facility] Absolute neutrophil countOrd ered By: Riley Jeff on 09-29-2024 Neutrophils (Bld) [#/Vol] 8.4 10*3/uL High 2.0-7.7 [facility] Anion gap in Serum or Plasma Ordered By: Riley Jeff on 09-29-2024 Anion gap [Moles/Vol] 10 mmol/L 5-15 [facility] Assessment of wrist artery p atency prior to arterial punctureOrdered By: Riley Jeff on 09-29-2024 Arterial patency Wrist artery --pre arterial puncture Positive [facility] Automated lymphocyte count a s percentage of total leukocytesOrdered By: Riley Jeff on 09-29-2024 Lymphocytes/100 WBC Auto (Unsp spec) 13.2 % Low 19-41 [facility] BUN/creatinine ratioOrdered By: Riley Jeff on 09-29-2024 Urea nitrogen/Creatinine [Mass ratio] 25.5 mg/mg High 10-20 [facility] Basic Metabolic Profile (BMP )on 09-29-2024 BUN/CRE 25.5 RATIO High 10-20 [facility] Comment on above: Performed By: #### L 500.2500, L501.5200, L503.7505 ####[facility] [address] [place], [address] Calcium [Mass/Vol] 8.9 mg/dL Normal 7.6-11.0 [facility] Comment on above: Performed By: #### L 500.2500, L501.5200, L503.7505 ####[facility] [address] [place], [address] Chloride [Moles/Vol] 93 mmol/L Low 98-[address] [facility] Comment on above: Performed By: #### L 500.2500, L501.5200, L503.7505 ####[facility] [address] [place], [address] CO2 [Moles/Vol] 33.1 mmol/L High 21.0-32.0 [facility] Comment on above: Performed By: #### L 500.2500, L501.5200, L503.7505 ####[facility] [address] [place], [address] Creatinine [Mass/Vol] 0.70 mg/dL Normal 0.70-1.20 [facility] Comment on above: Performed By: #### L 500.2500, L501.5200, L503.7505 ####[facility] [address] [place], [address] ECRCL 64.35 ml/min Normal 50-250 [facility] Comment on above: Performed By: #### L 500.2500, L501.5200, L503.7505 ####[facility] [address] [place], [address] GAP 10 Normal 5-15 [facility] Comment on above: Performed By: #### L 500.2500, L501.5200, L503.7505 ####[facility] [address] [place], [address] GFR/1.73 sq M.predicted among non-blacks MDRD (S/P/Bld) [Vol rate/Area] 94 mL/min/{1.73_m2} Normal >60 [facility] Comment on above: Result Comment: mL/m in/1.73m2 CKD-EPI Creatinine Equation (2020) Performed By: #### L 500.2500, L501.5200, L503.7505 ####[facility] [address] [place], [address] Glucose [Mass/Vol] 129 mg/dL High 70-99 [facility] Comment on above: Performed By: #### L 500.2500, L501.5200, L503.7505 ####[facility] [address] [place], [address] Potassium [Moles/Vol] 4.4 mmol/L Normal 3.3-5.1 [facility] Comment on above: Performed By: #### L 500.2500, L501.5200, L503.7505 ####[facility] [address] [place], [address] Sodium [Moles/Vol] 136 mmol/L Normal 133-145 [facility] Comment on above: Performed By: #### L 500.2500, L501.5200, L503.7505 ####[facility] [address] [place], [address] Urea nitrogen [Mass/Vol] 18 mg/dL Normal 4-19 [facility] Comment on above: Performed By: #### L 500.2500, L501.5200, L503.7505 ####[facility] [address] [place], [address] Basophil percentageOrdered B y: Riley Jeff on 09-29-2024 Basophils/100 WBC (Bld) 0.2 % 0-1 [facility] Blood Gases by CPSon 025 CHAO TEST Positive Normal [facility] Comment on above: Performed By: #### L 9000.0800 ####[facility] [address] [place], [address] Base excess Calc (Bld) [Moles/Vol] 19 mmol/L High -2 to +2 [facility] Comment on above: Performed By: #### L 9000.0800 ####[facility] [address] [place], [address] Blood Gas Type ART Normal [facility] Comment on above: Performed By: #### L 9000.0800 ####[facility] [address] [place], [address] CO2 [Moles/Vol] 47 mmol/L Normal [facility] Comment on above: Performed By: #### L 9000.0800 ####[facility] [address] [place], [address] FI02 3.0 Normal [facility] Comment on above: Performed By: #### L 9000.0800 ####[facility] [address] [place], [address] HCO3 (Bld) [Moles/Vol] 44.5 mmol/L High 22-26 [facility] Comment on above: Performed By: #### L 9000.0800 ####[facility] [address] [place], [address] Mode Not entered Normal [facility] Comment on above: Performed By: #### L 9000.0800 ####[facility] [address] [place], [address] O2 Delivery Dev Cannula Normal [facility] Comment on above: Performed By: #### L 9000.0800 ####[facility] [address] [place], [address] pCO2 79.5 mmHg Invalid Interpretation Code 35-45 [facility] Comment on above: Performed By: #### L 9000.0800 ####[facility] [address] [place], [address] pH (Bld) 7.36 [pH] Normal 7.35-7.45 [facility] Comment on above: Performed By: #### L 9000.0800 ####[facility] [address] [place], [address] PO2 83 mmHG Normal 75-100 [facility] Comment on above: Performed By: #### L 9000.0800 ####[facility] [address] [place], [address] Read Back By Yes Normal [facility] Comment on above: Performed By: #### L 9000.0800 ####[facility] [address] [place], [address] [facility] Comment on above: Performed By: #### L 9000.0800 ####[facility] [address] [place], [address] SITE L Radial Normal [facility] Comment on above: Performed By: #### L 9000.0800 ####[facility] [address] [place], [address] SO2 95 Normal 95-99 [facility] Comment on above: Performed By: #### L 9000.0800 ####[facility] [address] [place], [address] Time Given 04:48:18 Normal [facility] Comment on above: Performed By: #### L 9000.0800 ####[facility] [address] [place], [address] Blood base excess determinat ionOrdered By: Riley Jeff on 09-29-2024 Base excess Calc (BldV) [Moles/Vol] 19 mmol/L High -2-2 [facility] Blood bicarbonate measuremen tOrdered By: Riley Jeff on 09-29-2024 HCO3 (Bld) [Moles/Vol] 44.5 mmol/L High 22-26 [facility] CBC W/Diff, Automatedon 06-0 Absolute Lymph 1.40 X10 3/uL Normal 0.83-4.51 [facility] Comment on above: Performed By: #### L 100.0100 ####[facility] [address] [place], [address] Absolute Neut 8.4 X10 3/uL High 2.0-7.7 [facility] Comment on above: Performed By: #### L 100.0100 ####[facility] [address] [place], [address] Basophils/100 WBC (Bld) 0.2 % Normal 0-1 [facility] Comment on above: Performed By: #### L 100.0100 ####[facility] [address] [place], [address] Eosinophils/100 WBC (Bld) 0.7 % Normal 0-5 [facility] Comment on above: Performed By: #### L 100.0100 ####[facility] [address] [place], [address] Erythrocyte distribution width (RBC) [Ratio] 13.1 % Normal 11.6-14.6 [facility] Comment on above: Performed By: #### L 100.0100 ####[facility] [address] [place], [address] Hematocrit (Bld) [Volume fraction] 41.7 % Normal 37-47 [facility] Comment on above: Performed By: #### L 100.0100 ####[facility] [address] [place], [address] Hemoglobin (Bld) [Mass/Vol] 13.6 g/dL Normal 12.0-15.0 [facility] Comment on above: Performed By: #### L 100.0100 ####[facility] [address] [place], [address] IG% 0.500 Normal 0.0-0.9 [facility] Comment on above: Result Comment: IG% - Immature Granulocytes (promyelocytes, myelocytes andmetamyelocytes) > 1% indicates that a LEFT SHIFT is Present. Performed By: #### L 100.0100 ####[facility] [address] [place], [address] Lymphocytes/100 WBC (Bld) 13.2 % Low 19-41 [facility] Comment on above: Performed By: #### L 100.0100 ####[facility] [address] [place], [address] MCH (RBC) [Entitic mass] 27.9 pg Normal 27.0-32.0 [facility] Comment on above: Performed By: #### L 100.0100 ####[facility] [address] [place], [address] MCHC (RBC) [Mass/Vol] 32.6 g/dL Normal 32-36 [facility] Comment on above: Performed By: #### L 100.0100 ####[facility] [address] [place], [address] MCV (RBC) [Entitic vol] 85.5 fL Normal 81-99 [facility] Comment on above: Performed By: #### L 100.0100 ####[facility] [address] [place], [address] Monocytes/100 WBC (Bld) 6.9 % Normal 0-10 [facility] Comment on above: Performed By: #### L 100.0100 ####[facility] [address] [place], [address] Neutrophils/100 WBC (Bld) 78.5 % High 47-70 [facility] Comment on above: Performed By: #### L 100.0100 ####[facility] [address] [place], [address] Nucleated RBC (Bld) [#/Vol] 0 10*3/uL Normal 0-5 [facility] Comment on above: Performed By: #### L 100.0100 ####[facility] [address] [place], [address] Platelet mean volume (Bld) [Entitic vol] 9.7 fL Normal 6.2-12.0 [facility] Comment on above: Performed By: #### L 100.0100 ####[facility] [address] [place], [address] Platelets (Bld) [#/Vol] 198 10*3/uL Normal 150-450 [facility] Comment on above: Performed By: #### L 100.0100 ####[facility] [address] [place], [address] RBC (Bld) [#/Vol] 4.88 10*6/uL Normal 4.2-5.4 [facility] Comment on above: Performed By: #### L 100.0100 ####[facility] [address] [place], [address] RDW SD 40.6 fl Normal 35.1-43.9 [facility] Comment on above: Performed By: #### L 100.0100 ####[facility] [address] [place], [address] WBC (Bld) [#/Vol] 10.6 10*3/uL Normal 4.4-11.0 [facility] Comment on above: Performed By: #### L 100.0100 ####[facility] [address] [place], [address] Carbon dioxide, total [Moles /volume] in Central venous bloodOrdered By: Riley Jeff on 09-29-2024 CO2 [Moles/Vol] 33.1 mmol/L High 21.0-32.0 [facility] Chest PA and Lateralon 09-29 Chest PA and Lateral Normal [facility] Chloride assayOrdered By: Silvia Jeff on 09-29-2024 Chloride [Moles/Vol] 93 mmol/L Low 98-[address] [facility] Emergency Department Summary on 09-29-2024 Emergency Department Summary Normal [facility] Eosinophil percentageOrdered By: Riley Jeff on 09-29-2024 Eosinophils/100 WBC (Bld) 0.7 % 0-5 [facility] Erythrocyte distribution wid th ratioOrdered By: Riley Jeff on 09-29-2024 Erythrocyte distribution width (RBC) [Ratio] 13.1 % 11.6-14.6 [facility] Erythrocyte distribution wid th standard deviationOrdered By: Riley Jeff on 09-29-2024 Erythrocyte distribution width (RBC) [Ratio] 40.6 fl 35.1-43.9 [facility] Glomerular filtration rate ( GFR) estimation/1.73 sq m using serum, plasma, or whole bOrdered By: Riley Jeff on 09-29-2024 GFR/1.73 sq M.predicted among non-blacks MDRD (S/P/Bld) [Vol rate/Area] 94 mL/min/{1.73_m2} >60 [facility] Comment on above: mL/min/1.73m2 CKD-EP I Creatinine Equation (2020) Gram stainOrdered By: Dionne Porter on 09-29-2024 Microscopic observation Gram stain Nom (Unsp spec) [facility] H AND P Exam - Hospitaliston 09-29-2024 H&P Exam - Hospitalist Normal [place] Hematocrit Auto (Bld) [Volum e fraction]Ordered By: Riley Jeff on 09-29-2024 Hematocrit (Bld) [Volume fraction] 41.7 % 37-47 [facility] Hemoglobin measurementOrdere d By: Riley Jeff on 09-29-2024 Hemoglobin (Bld) [Mass/Vol] 13.6 g/dL 12.0-15.0 [facility] Immature granulocytes/100 WB C Auto (Bld)Ordered By: Riley Jeff on 09-29-2024 Immature granulocytes/100 WBC (Bld) 0.500 % 0.0-0.9 [facility] Comment on above: IG% - Immature Granu locytes (promyelocytes, myelocytes and metamyelocytes) > 1% indicates that a LEFT SHIFT is Present. Influenza virus A and B and SARS-CoV-2 (COVID-19) and Respiratory syncytial virus RNAOrdered By: Riley Jeff on 09-29-2024 SARS-CoV-2 (COVID-19) RNA ASPEN+probe Ql (Unsp spec) [facility] L503.7505on 09-29-2024 Natriuretic peptide B (Bld) [Mass/Vol] 518 pg/mL Normal <=900 [facility] Comment on above: Result Comment: Hear t Failure Unlikely: < 300 pg/mLHeart Failure Likely< 50 Years: > 450 pg/mL50-75 Years: > 900 pg/mL>75 Years: > 1800 pg/mL Performed By: #### L 500.2500, L501.5200, L503.7505 ####[facility] [address] [place], [address] L509.7001on 09-29-2024 Procalcitonin 0.04 ng/mL Normal <=0.10 [facility] Comment on above: Result Comment: Inte rpretation:<0.10-0.25 ng/mL: Antibiotic therapy discouraged. Bacterialinfection unlikely.0.25-0.50 ng/mL: Antibiotic therapy encouraged. Bacterialinfection possible.>0.50 ng/mL: Antibiotic therapy strongly encouraged.Suggestive of presence of bacterial infection.PCT should always be interpreted in the clinical context ofthe patient. Therefore, clinicians should use the PCTresults in conjunction with other laboratory findings andclinical signs of the patient. Performed By: #### L 509.7001 ####[facility] [address] [place], [address] M100.678on 09-29-2024 M100.678 Pending SARS-CoV-2 (COVID 19) Negative INFLUENZA A Negative INFLUENZA B Negative RSV PCR Negative Normal [facility] Comment on above: Performed By: #### M 100.678 ####[facility] [address] [place], [address] MCV (mean corpuscular volume ) determinationOrdered By: Riley Jeff on 09-29-2024 MCV (RBC) [Entitic vol] 85.5 fL 81-99 [facility] Magnesiumon 09-29-2024 Magnesium [Mass/Vol] 2.0 mg/dL Normal 1.5-2.[address] [facility] Comment on above: Performed By: #### L 500.2500, L501.5200, L503.7505 ####[facility] [address] [place], [address] Magnesium measurement (mass/ volume)Ordered By: Riley Jeff on 09-29-2024 Magnesium (Unsp spec) [Mass/Vol] 2.0 mg/dL 1.5-2.2 [facility] Mean corpuscular hemoglobin (MCH) determinationOrdered By: Riley Jeff on 09-29-2024 MCH (RBC) [Entitic mass] 27.9 pg 27.0-32.0 [facility] Mean corpuscular hemoglobin concentration (MCHC) determinationOrdered By: Riley Jeff on 09-29-2024 MCHC (RBC) [Mass/Vol] 32.6 g/dL 32-36 [facility] Mean platelet volume determi nationOrdered By: Riley Jeff on 09-29-2024 Platelet mean volume (Bld) [Entitic vol] 9.7 fL 6.2-12.0 [facility] Measurement, pHOrdered By: Duncan Jeff on 09-29-2024 pH (Unsp spec) 7.36 [pH] 7.35-7.45 [facility] Microbial respiratory cultur eOrdered By: Dionne Porter on 09-29-2024 Microorganism identified Cx Nom (Unsp spec) Stenotrophomonas maltophilia Abnormal [facility] Microorganism identified Cx Nom (Unsp spec) Pseudomonas aeruginosa Abnormal [facility] Monocyte percentageOrdered B y: Riley Jeff on 09-29-2024 Monocytes/100 WBC (Bld) 6.9 % 0-10 [facility] Natriuretic peptide.B prohor sharee N-Terminal [Mass/volume] in Serum or PlasmaOrdered By: Riley Jeff on 09-29-2024 Natriuretic peptide.B prohormone N-Terminal [Mass/Vol] 518 pg/mL <900 [facility] Comment on above: Heart Failure Unlike ly: < 300 pg/mLHeart Failure Likely< 50 Years: > 450 pg/mL50-75 Years: > 900 pg/mL>75 Years: > 1800 pg/mL Neutrophil percentageOrdered By: Riley Jeff on 09-29-2024 Neutrophils/100 WBC (Bld) 78.5 % High 47-70 [facility] No Panel InformationOrdered By: Riley Jeff on 09-29-2024 Bld Gas Crit Called To/Read Back By Yes [facility] Blood Gas Notified Time 04:48:18 [facility] Blood Gas Notified Whom Andes [facility] Blood Gas Sample Site L Radial [facility] Blood Gas Specimen Type ART [facility] Blood Gas Vent Mode Not entered [facility] Oxygen Delivery Device Cannula [place] ART [facility] L Radial [facility] Not entered [facility] Cannula [facility] 04:48:18 [facility] Andes [facility] Yes [facility] Nucleated red blood cell per centageOrdered By: Riley Jeff on 09-29-2024 Nucleated RBC/100 WBC (Bld) [Ratio] 0 % 0-5 [facility] Platelet countOrdered By: Silvia Jeff on 09-29-2024 Platelets (Bld) [#/Vol] 198 10*3/uL 150-450 [facility] Potassium measurement (mass/ volume)Ordered By: Riley Jeff on 09-29-2024 Potassium (Unsp spec) [Mass/Vol] 4.4 mmol/L 3.3-5.1 [facility] Procalcitonin [Mass/volume] in Serum or Plasma by ImmunoassayOrdered By: Dionne Porter on 09-29-2024 Procalcitonin IA [Mass/Vol] 0.04 ng/mL <0.11 [facility] Comment on above: Interpretation:<0.10 -0.25 ng/mL: Antibiotic [...] RBC (Bld) [#/Vol] 4.88 10*6/uL 4.2-5.4 [facility] RESPIRATORY PANEL MOLECULARo n 09-29-2024 RP PANEL Normal [facility] Comment on above: Performed By: #### M 100.638 ####[facility] [address] [place], [place], [id number] Respiratory pathogens detect ion panel by molecular detection methodOrdered By: Dionne Porter on 09-29-2024 Respiratory pathogens DNA and RNA panel ASPEN+probe (Resp) [facility] Serum creatinine measurement (mass/volume)Ordered By: Riley Jeff on 09-29-2024 Creatinine [Mass/Vol] 0.70 mg/dL 0.70-1.20 [facility] Serum glucose measurement (m ass/volume)Ordered By: Riley Jeff on 09-29-2024 Glucose [Mass/Vol] 129 mg/dL High 70-99 [facility] Serum or plasma calcium kadi urement (mass/volume)Ordered By: iRley Jeff on 09-29-2024 Calcium [Mass/Vol] 8.9 mg/dL 7.6-11.0 [facility] Serum or plasma urea nitroge n measurement (mass/volume)Ordered By: Riley Jeff on 09-29-2024 Urea nitrogen [Mass/Vol] 18 mg/dL 4-19 [facility] Sodium levelOrdered By: Brennen Jeff on 09-29-2024 Sodium [Moles/Vol] 136 mmol/L 133-145 [facility] Total carbon dioxide measure mentOrdered By: Riley Jeff on 09-29-2024 CO2 [Moles/Vol] 47 mmol/L [facility] White blood cell (WBC) count Ordered By: Riley Jeff on 09-29-2024 WBC (Bld) [#/Vol] 10.6 10*3/uL 4.4-11.0 [facility] CNPNon 07-24-2024 CNPN Telephone (FAMPWS) DENIA [id number]) 1955 F Date Time Provider Department 07/24/24 [...] rash. He states the Pt has a flour tester that come in tomorrow and she [...] directed. Dx: COPD J44.9 - Nebulizer Accessories [place] [facility] Mask and supplies as needed - PULSE OXIMETER [facility] Use as directed to check oxygen saturation level - ammonium lactate (AMLACTIN) 12 % lotion Apply 1 application to affected area as needed for Dry Skin. - losartan (COZAAR) 50 mg tablet Take 0.5 tablets by mouth once daily. - OXYGEN, HOME THERAPY, 2.5 L/min by Nasal Cannula route continuous. Use as directred - Disposable Gloves (DISPOSABLE LATEX-FREE GLOVES) [facility] 1 Box once every month. ICD 10: [...] (more content not included)... [facility] DEN[facility] GONZALE[facility] ([id number]) 1955 F Date Time Provider Department 07/12/24 [facility] During your visit today, we recorded the following information about you: Sukhi Marrero, RN 07/12/2024 2:51 PM [facility] calls to request chart notes to support patients need for continued oxygen. Most recent visits have all been [facility]. Jenni requests most recent visit be faxed. Faxed to [phone] per request. Sukhi Marrero RN Allergies As [...] directed. Dx: COPD J44.9 - Nebulizer Accessories [facility] Mask and supplies as needed - PULSE OXIMETER [facility] Use as directed to check oxygen saturation level - ammonium lactate (AMLACTIN) 12 % lotion Apply 1 application to affected area as needed for Dry Skin. - losartan (COZAAR) 50 mg tablet Take 0.5 tablets by mouth once daily. - OXYGEN, HOME THERAPY, 2.5 L/min by Nasal Cannula route continuous. Use as directred - Disposable Gloves (DISPOSABLE LATEX-FREE GLOVES) [facility] 1 Box once every month. ICD 10: [...] Encounter Status:Closed by SUKHI MARRERO on 07/12/24 [facility] 06-12-2024 [facility] DEN[facility] GONZALEZ ([id number]) 1955 F Date Time Provider Department 06/12/24 [facility] FALL [facility] During your visit today, we recorded the following information about you: Martha Baca MA 06/12/2024 12:44 PM Signed Type of form: Medical Necessity for incontinence supplies. Form received via fax When form is completed, Fax form to [phone] Form has been forwarded to Physician Desk: [...] directed. Dx: COPD J44.9 - Nebulizer Accessories [facility] Mask and supplies as needed - PULSE OXIMETER [facility] Use as directed to check oxygen saturation level - ammonium lactate (AMLACTIN) 12 % lotion Apply 1 application to affected area as needed for Dry Skin. - losartan (COZAAR) 50 mg tablet Take 0.5 tablets by mouth once daily. - OXYGEN, HOME THERAPY, 2.5 L/min by Nasal Cannula route continuous. Use as directred - Disposable Gloves (DISPOSABLE LATEX-FREE GLOVES) [facility] 1 Box once every month. ICD 10: [...] Encounter Status:Closed by MARTHA BACA [facility]12[facility] (INTMWS) DENIA GONZALEZ ([id number]) 1955 F Date Time Provider Department 06/02/24 [facility] FALL [facility] During your visit today, we recorded the following information about you: Ban Villafana LPN 06/02/2024 8:13 AM Signed Electronic PA rec'd and completed for cyclobenzaprine. This was denied. Note from payer: CaseId:[id number];Statu s:Denied;Review Type:Prior Auth;Appeal Information: Attention:ATTN: [employer] [facility] [address] [address],[place], [place],[address] WebAddress:[email or web address]; Important - Please read the below note [...] the appeal.; Payer: [employer] [phone] Electronic appeal: Supported View History Notes Time [...] to its destination. To be filled at: [facility] [address] [place] [phone] [address] [facility] - [phone] Allergies As of Date: 06/02/2024 (No Known [...] directed. Dx: COPD J44.9 - Nebulizer Accessories [facility] Mask and supplies as needed - PULSE OXIMETER [facility] Use as directed to check oxygen saturation level - ammonium lactate (AMLACTIN) 12 % lotion Apply 1 application to affected area as needed for Dry Skin. - losartan (COZAAR) 50 mg tablet Take 0.5 tablets by mouth once daily. - OXYGEN, HOME THERAPY, 2.5 L/min by Nasal Cannula route continuous. Use as directred - Disposable Gloves (DISPOSABLE LATEX-FREE GLOVES) [facility] 1 Box once every month. ICD 10: [...] Noted Reso (more content not included)... [facility] C[facility]N Telephone (FAMWS) DENIA GONZALEZ ([id number]) 1955 F Date Time Provider Department 03/21/24 [facility] FALL [facility] During your visit today, we recorded [...] Please review and advise, KAREN Werner Ashley, APRN.[facility] 03/22/2024 8:51 AM Signed The following approved [...] Fully Assessed Reason for Visit: Patient Question [4267] Primary Visit Diagnosis:Oral infection [K12.2] Order(s):amoxicillin (AMOXIL) [...] directed. Dx: COPD J44.9 - Nebulizer Accessories [facility] Mask and supplies as needed - PULSE [...] directred - Disposable Gloves (DISPOSABLE LATEX-FREE GLOVES) [facility] 1 Box once every month. ICD 10: [...] S (more content not included)... Normal [facility] [place] 02-03-2024 [place] Telephone (FAMPWS) DENIA GONZALEZ ([id number]) 1955 F Date Time Provider Department 02/03/24 [...] Fully Assessed Reason for Visit: Patient Question [4617] Order(s):amoxicillin (AMOXIL) 875 mg tabletTake 1 tablet [...] directed. Dx: COPD J44.9 - Nebulizer Accessories [facility] Mask and supplies as needed - PULSE OXIMETER [facility] Use as directed to check oxygen saturation level - ammonium lactate (AMLACTIN) 12 % lotion Apply 1 application to affected area as needed for Dry Skin. - losartan (COZAAR) 50 mg tablet Take 0.5 tablets by mouth once daily. - OXYGEN, HOME THERAPY, 2.5 L/min by Nasal Cannula route continuous. Use as directred - Disposable Gloves (DISPOSABLE LATEX-FREE GLOVES) [facility] 1 Box once every month. ICD 10: [...] [K59.00] 06/21/2016 (more content not included)... [facility] DENIA GONZALEZ ([id number]) 1955 F Date Time Provider Department 02/03/24 [facility] During your visit today, we recorded [...] directed. Dx: COPD J44.9 - Nebulizer Accessories [facility] Mask and supplies as needed - PULSE OXIMETER [facility] Use as directed to check oxygen saturation level - ammonium lactate (AMLACTIN) 12 % lotion Apply 1 application to affected area as needed for Dry Skin. - losartan (COZAAR) 50 mg tablet Take 0.5 tablets by mouth once daily. - OXYGEN, HOME THERAPY, 2.5 L/min by Nasal Cannula route continuous. Use as directred - Disposable Gloves (DISPOSABLE LATEX-FREE GLOVES) [facility] 1 Box once every month. ICD 10: [...] by Martínez LOUIE on 02/03/24 Normal [facility] Absolute lymphocyte countOrd ered By: Jan Bolanos on 07-21-2023 Lymphocytes Auto (Unsp spec) [#/Vol] 0.61 10*3/uL 0.83-4.51 [facility] Automated lymphocyte count a s percentage of total leukocytesOrdered By: Jan Bolanos on 07-21-2023 Lymphocytes/100 WBC Auto (Unsp spec) 8.8 % 19-41 [facility] Basophil percentageOrdered B y: Jan Bolanos on 07-21-2023 Basophils/100 WBC (Bld) 0.0 % 0-1 [facility] Chloride [Moles/Vol] 107 mmol/L 98-107 [facility] Eosinophils/100 WBC (Bld) 0.0 % 0-5 [facility] Glucose [Mass/Vol] 140 mg/dL 74-106 [facility] Comment on above: Fasting Glucose resu lt greater than or equal to 126 mg/dL suggests DIABETES MELLITUS per A.D.A. criteria. Hemoglobin (Bld) [Mass/Vol] 12.0 g/dL 12.0-15.0 [facility] Monocytes/100 WBC (Bld) 2.7 % 0-10 [facility] Neutrophils (Bld) [#/Vol] 6.1 10*3/uL 2.0-7.7 [facility] Neutrophils/100 WBC (Bld) 88.1 % 47-70 [facility] Potassium [Moles/Vol] 4.1 mmol/L 3.5-5.1 [facility] Sodium [Moles/Vol] 140 mmol/L 136-145 [facility] WBC (Bld) [#/Vol] 6.9 10*3/uL 4.4-11.0 [facility] Determination of erythrocyte mean corpuscular volume (MCV)Ordered By: Jan Bolanos on 07-21-2023 MCV (RBC) [Entitic vol] 82.7 fL 81-99 [facility] Erythrocyte distribution wid th ratioOrdered By: Jan Bolanos on 07-21-2023 Erythrocyte distribution width (RBC) [Ratio] 13.4 % 11.6-14.6 [facility] Erythrocyte distribution wid th standard deviationOrdered By: Jan Bolanos on 07-21-2023 Erythrocyte distribution width (RBC) [Entitic vol] 40.3 fL 35.1-43.9 [facility] Gram stain for investigation of transfusion reactionOrdered By: Jan Bolanos on 07-21-2023 Microscopic observation Gram stain Nom (Unsp spec) [facility] Hematocrit Auto (Bld) [Volum e fraction]Ordered By: Jan Bolanos on 07-21-2023 Hematocrit (Bld) [Volume fraction] 37.4 % 37-47 [facility] Immature granulocytes/100 WB C Auto (Bld)Ordered By: Jan Bolanos on 07-21-2023 Immature granulocytes/100 WBC (Bld) 0.400 % 0.0-0.9 [facility] Comment on above: IG% - Immature Granu locytes (promyelocytes, myelocytes and metamyelocytes) > 1% indicates that a LEFT SHIFT is Present. Laboratory - Chemistry and C hemistry - challengeOrdered By: Jan Bolanos on 07-21-2023 CO2 [Moles/Vol] 30.0 mmol/L 21.0-32.0 [facility] Urea nitrogen/Creatinine [Mass ratio] 27.8 mg/mg 10-20 [facility] Laboratory - Hematology and Cell countsOrdered By: Jan Bolanos on 07-21-2023 MCH (RBC) [Entitic mass] 26.5 pg 27.0-32.0 [facility] MCHC (RBC) [Mass/Vol] 32.1 g/dL 32-36 [facility] Nucleated RBC/100 WBC (Bld) [Ratio] 0 % 0-5 [facility] Platelet mean volume (Bld) [Entitic vol] 9.9 fL 6.2-12.0 [facility] Platelets (Bld) [#/Vol] 210 10*3/uL 150-450 [facility] No Panel InformationOrdered By: Jan Bolanos on 07-21-2023 Estimated Creatinine Clearance Calc 64.83 ml/min [facility] Estimated GFR (MDRD) Amer 170 mL/min >60 [facility] Comment on above: GFR Calc Estimated GFR (MDRD) Non-Af Amer 141 mL/min >60 [facility] Comment on above: Non- GFR Calc RBC Auto (Bld) [#/Vol]Ordere d By: Jan Bolanos on 07-21-2023 RBC (Bld) [#/Vol] 4.52 10*6/uL 4.2-5.4 [facility] Serum or plasma calcium kadi urement (mass/volume)Ordered By: Jan Bolanos on 07-21-2023 Calcium [Mass/Vol] 8.6 mg/dL 8.5-10.1 [facility] Serum or plasma creatinine m easurement (mass/volume)Ordered By: Jan Bolanos on 07-21-2023 Creatinine [Mass/Vol] 0.47 mg/dL 0.55-1.02 [facility] Comment on above: The validity of the calculated GFR & GFRAA in patients over 70 years has not been determined. Clinical correlation is essential. Serum or plasma urea nitroge n measurement (mass/volume)Ordered By: Jan Bolanos on 07-21-2023 Urea nitrogen [Mass/Vol] 13 mg/dL 7-18 [facility] Thin prep Papanicolaou smear with manual screeningOrdered By: Jan Bolanos on 07-21-2023 Thin prep Papanicolaou smear with manual screening 3 5-15 [facility] Absolute lymphocyte countOrd ered By: Dallas Mena on 07-20-2023 Lymphocytes Auto (Unsp spec) [#/Vol] 2.11 10*3/uL 0.83-4.51 [facility] Automated lymphocyte count a s percentage of total leukocytesOrdered By: Dallas Mena on 07-20-2023 Lymphocytes/100 WBC Auto (Unsp spec) 23.7 % 19-41 [facility] Basophil percentageOrdered B y: José Smith on 07-20-2023 Basophil percentage 2.4 mg/dL 2.5-4.9 [facility] Bilirubin [Mass/Vol] 0.40 mg/dL 0.20-1.[address] [facility] Comment on above: For patients on eltr ombopag therapy, use of Dimension Waddy TBIL is not recommended. Protein [Mass/Vol] 7.4 g/dL 6.4-8.2 [facility] Basophil percentageOrdered B y: Dallas Mena on 07-20-2023 Basophils/100 WBC (Bld) 0.3 % 0-1 [facility] Chloride [Moles/Vol] 101 mmol/L 98-[address] [facility] Eosinophils/100 WBC (Bld) 0.6 % 0-5 [facility] Glucose [Mass/Vol] 129 mg/dL 74-106 [facility] Comment on above: Fasting Glucose resu lt greater than or equal to 126 mg/dL suggests DIABETES MELLITUS per A.D.A. criteria. Hemoglobin (Bld) [Mass/Vol] 14.1 g/dL 12.0-15.0 [facility] Monocytes/100 WBC (Bld) 7.6 % 0-10 [facility] Neutrophils (Bld) [#/Vol] 6.0 10*3/uL 2.0-7.7 [facility] Neutrophils/100 WBC (Bld) 67.5 % 47-70 [facility] Potassium [Moles/Vol] 3.8 mmol/L 3.5-5.1 [facility] Sodium [Moles/Vol] 139 mmol/L 136-145 [facility] WBC (Bld) [#/Vol] 8.9 10*3/uL 4.4-11.0 [facility] Determination of erythrocyte mean corpuscular volume (MCV)Ordered By: Dallas Mena on 07-20-2023 MCV (RBC) [Entitic vol] 82.8 fL 81-99 [facility] Erythrocyte distribution wid th ratioOrdered By: Dallas Mena on 07-20-2023 Erythrocyte distribution width (RBC) [Ratio] 13.6 % 11.6-14.6 [facility] Erythrocyte distribution wid th standard deviationOrdered By: Dallas Mena on 07-20-2023 Erythrocyte distribution width (RBC) [Entitic vol] 41.0 fL 35.1-43.9 [facility] Hematocrit Auto (Bld) [Volum e fraction]Ordered By: Dallas Mena on 07-20-2023 Hematocrit (Bld) [Volume fraction] 44.2 % 37-47 [facility] Immature granulocytes/100 WB C Auto (Bld)Ordered By: Dallas Mena on 07-20-2023 Immature granulocytes/100 WBC (Bld) 0.300 % 0.0-0.9 [facility] Comment on above: IG% - Immature Granu locytes (promyelocytes, myelocytes and metamyelocytes) > 1% indicates that a LEFT SHIFT is Present. Laboratory - Chemistry and C hemistry - challengeOrdered By: José Smith on 07-20-2023 Albumin/Globulin [Mass ratio] 0.8 {ratio} 0.9-2.4 [facility] ALP [Catalytic activity/Vol] 72 U/L 45-117 [facility] ALT [Catalytic activity/Vol] 15 U/L 13-56 [facility] Globulin (S) [Mass/Vol] 4.0 g/dL 2.2-4.2 [facility] Magnesium [Mass/Vol] 2.1 mg/dL 1.6-2.[address] [facility] Laboratory - Chemistry and C hemistry - challengeOrdered By: Dallas Mena on 07-20-2023 CO2 [Moles/Vol] 33.0 mmol/L 21.0-32.0 [facility] Urea nitrogen/Creatinine [Mass ratio] 18.7 mg/mg 10-20 [facility] Laboratory - Hematology and Cell countsOrdered By: Dallas Mena on 07-20-2023 MCH (RBC) [Entitic mass] 26.4 pg 27.0-32.0 [facility] MCHC (RBC) [Mass/Vol] 31.9 g/dL 32-36 [facility] Nucleated RBC/100 WBC (Bld) [Ratio] 0 % 0-5 [facility] Platelet mean volume (Bld) [Entitic vol] 9.9 fL 6.2-12.0 [facility] Platelets (Bld) [#/Vol] 233 10*3/uL 150-450 [facility] Laboratory - Microbiology an d Antimicrobial susceptibilityOrdered By: Dallas Mena on 07-20-2023 SARS-CoV-2 (COVID-19) RNA ASPEN+probe Ql (Unsp spec) [facility] No Panel InformationOrdered By: Dallas Mena on 07-20-2023 Estimated Creatinine Clearance Calc 65.47 ml/min [facility] Estimated GFR (MDRD) Amer 108 mL/min >60 [facility] Comment on above: GFR Calc Estimated GFR (MDRD) Non-Af Amer 89 mL/min >60 [facility] Comment on above: Non- GFR Calc RBC Auto (Bld) [#/Vol]Ordere d By: Dallas Mena on 07-20-2023 RBC (Bld) [#/Vol] 5.34 10*6/uL 4.2-5.4 [facility] Serum or plasma calcium kadi urement (mass/volume)Ordered By: Dallas Mena on 07-20-2023 Calcium [Mass/Vol] 8.8 mg/dL 8.5-10.1 [facility] Serum or plasma creatinine m easurement (mass/volume)Ordered By: Dallas Mena on 07-20-2023 Creatinine [Mass/Vol] 0.70 mg/dL 0.55-1.02 [facility] Comment on above: The validity of the calculated GFR & GFRAA in patients over 70 years has not been determined. Clinical correlation is essential. Serum or plasma thyroid stim ulating hormone (TSH) measurement (units/volume)Ordered By: José Smith on 07-20-2023 TSH Qn 0.35 uIU/mL 0.358-3.74 [facility] Serum or plasma urea nitroge n measurement (mass/volume)Ordered By: Dallas Mena on 07-20-2023 Urea nitrogen [Mass/Vol] 13 mg/dL 7-18 [facility] Thin prep Papanicolaou smear with manual screeningOrdered By: José Smith on 07-20-2023 Thin prep Papanicolaou smear with manual screening 3.4 g/dL 3.2-5.0 [facility] Thin prep Papanicolaou smear with manual screening 13 U/L 15-37 [facility] Thin prep Papanicolaou smear with manual screeningOrdered By: Dallas Mena on 07-20-2023 Thin prep Papanicolaou smear with manual screening 5 5-15 [facility] FECAL OCCULT BLOOD TESTon Lower GI hemoglobin IA Ql (Stl) Negative Negative [facility] OXIMETRY WITH AMBULATIONon 1 [facility] Vital Signs Date Time Vital Sign Value Performing Clinician Faci lity 02-08-2025 09:25-0400 Body height 162.[address] Yoseph Fall MD Work Phone: 9(694)479-887864 [place] [address] 02-08-2025 09:25-0400 Body mass index (BMI) [Ratio] 24.9 kg/m2 Dr. Yoseph Fall MD Work Phone: 2(747)781-594764 [place] [address] 02-08-2025 09:25-0400 Body weight 65.[address] Yoseph Fall MD Work Phone: [facility] 02-08-2025 09:25-0400 Diastolic blood pressure 63 mm[Hg] Dr. Yoseph Fall MD Work Phone: 3(924)227-920364 [place] [address] 02-08-2025 09:25-0400 Inhaled oxygen flow rate 3 L/min Dr. Yoseph Fall MD Work Phone: [facility] 02-08-2025 09:25-0400 Respiratory rate 18 /min Dr. Yoseph Fall MD Work Phone: 5(729)434-859664 [place] [address] 02-08-2025 09:25-0400 SaO2% (BldA) [Mass fraction] 98 % Dr. Yoseph Fall MD Work Phone: [facility] 02-08-2025 09:25-0400 Systolic blood pressure 105 mm[Hg] Dr. Yoseph Fall MD Work Phone: 4(068)749-482134 [place] [address] 01-31-2025 20:15-0400 Body temperature 97.7 [degF] Dr. Yoseph Fall MD Work Phone: 5(052)196-620334 [place] [address] 01-31-2025 20:15-0400 Diastolic blood pressure 68 mm[Hg] Dr. Yoseph Fall MD Work Phone: 7(401)353-141934 [place] [address] 01-31-2025 20:15-0400 Heart rate 92 /min Dr. Yoseph Fall MD Work Phone: 3(195)683-449234 [place] [address] 01-31-2025 20:15-0400 Inhaled oxygen flow rate 4 L/min Dr. Yoseph Fall MD Work Phone: 5(201)677-626534 [place] [address] 01-31-2025 20:15-0400 Respiratory rate 19 /min Dr. Yoseph Fall MD Work Phone: 5(340)173-706434 [place] [address] 01-31-2025 20:15-0400 SaO2% (BldA) [Mass fraction] 97 % Dr. Yoseph Fall MD Work Phone: 3(724)355-417934 [place] [address] 01-31-2025 20:15-0400 Systolic blood pressure 111 mm[Hg] Dr. Yoseph Fall MD Work Phone: 6(243)206-918434 [place] [address] 01-31-2025 03:19-0400 Inhaled oxygen concentration 35 % Dr. Yoseph Fall MD Work Phone: 1(231)660-891934 [place] [address] 01-31-2025 02:58-0400 Body mass index (BMI) [Ratio] 24.9 kg/m2 Dr. Yoseph Fall MD Work Phone: 3(661)833-818234 [place] [address] 01-31-2025 02:58-0400 Body weight 66.[address] Yoseph Fall MD Work Phone: 8(237)407-377034 [place] [address] 01-29-2025 09:27-0400 Body height 162.[address] Yoseph Fall MD Work Phone: 5(867)248-268734 [place] [address] 01-25-2025 13:31-0400 Heart rate 89 /min Dr. Yoseph Fall MD Work Phone: 7(747)852-659034 [place] [address] 01-25-2025 13:31-0400 Inhaled oxygen concentration 40 % Dr. Yoseph Fall MD Work Phone: 1(718)450-247534 [place] [address] 01-25-2025 13:31-0400 Respiratory rate 12 /min Dr. Yoseph Fall MD Work Phone: 4(821)601-370734 [place] [address] 01-25-2025 13:31-0400 SaO2% (BldA) [Mass fraction] 100 % Dr. Yoseph Fall MD Work Phone: 5(778)857-537134 [place] [address] 01-25-2025 12:00-0400 Body temperature 101.2 [degF] Dr. Yoseph Fall MD Work Phone: 7(814)977-066834 [place] [address] 01-25-2025 12:00-0400 Diastolic blood pressure 57 mm[Hg] Dr. Yoseph Fall MD Work Phone: 1(547)096-728934 [place] [address] 01-25-2025 12:00-0400 Systolic blood pressure 100 mm[Hg] Dr. Yoseph Fall MD Work Phone: 9(867)801-585734 [place] [address] 01-25-2025 11:47-0400 Body height 162.[address] Yoseph Fall MD Work Phone: 6(014)482-096734 [place] [address] 01-25-2025 11:47-0400 Body mass index (BMI) [Ratio] 27.8 kg/m2 Dr. Yoseph Fall MD Work Phone: 1(090)396-093534 [place] [address] 01-25-2025 11:47-0400 Body weight 73.[address] Yoseph Fall MD Work Phone: 2(262)646-350634 [place] [address] 01-25-2025 10:39-0400 Inhaled oxygen concentration 40 % Dr. Yoseph Fall MD Work Phone: 1(374)512-015034 [place] [address] 01-25-2025 10:39-0400 Respiratory rate 14 /min Dr. Yoseph Fall MD Work Phone: 2(988)212-429734 [place] [address] 01-25-2025 10:22-0400 Body temperature 100.6 [degF] Dr. Yoseph Fall MD Work Phone: 2(728)178-408834 [place] [address] 01-25-2025 10:22-0400 Diastolic blood pressure 88 mm[Hg] Dr. Yoseph Fall MD Work Phone: 2(465)955-431234 [place] [address] 01-25-2025 10:22-0400 Heart rate 100 /min Dr. Yoseph Fall MD Work Phone: 1(686)103-372934 [place] [address] 01-25-2025 10:22-0400 SaO2% (BldA) [Mass fraction] 95 % Dr. Yoseph Fall MD Work Phone: 8(251)645-563434 [place] [address] 01-25-2025 10:22-0400 Systolic blood pressure 111 mm[Hg] Dr. Yoseph Fall MD Work Phone: 2(499)906-894034 [place] [address] 01-25-2025 09:04-0400 Inhaled oxygen flow rate 8 L/min Dr. Yoseph Fall MD Work Phone: 9(877)453-064834 [place] [address] 01-25-2025 08:25-0400 Body height 162.[address] Yoseph Fall MD Work Phone: 1(495)801-958534 [place] [address] 01-25-2025 08:25-0400 Body mass index (BMI) [Ratio] 28.2 kg/m2 Dr. Yoseph Fall MD Work Phone: 6(788)773-965334 [place] [address] 01-25-2025 08:25-0400 Body weight 74.[address] Yoseph Fall MD Work Phone: 3(625)287-133434 [place] [address] 01-05-2025 15:00-0400 Diastolic blood pressure 82 mm[Hg] Zaria Shea MD Work Phone: [facility] 01-05-2025 15:00-0400 Heart rate 100 /min Zaria Shea MD Work Phone: [facility] 01-05-2025 15:00-0400 Respiratory rate 20 /min Zaria Shea MD Work Phone: [facility] 01-05-2025 15:00-0400 Systolic blood pressure 128 mm[Hg] Zaria Shea MD Work Phone: [facility] 01-05-2025 14:15-0400 SaO2% (BldA) [Mass fraction] 97 % Zaria Shea MD Work Phone: [facility] 01-05-2025 09:26-0400 Body temperature 98.01 [degF] Zaria Shea MD Work Phone: [facility] 12-30-2024 13:09-0400 Body temperature 98.1 [degF] Dr. Yoseph Fall MD Work Phone: 6(141)425-330964 [place] [address] 12-30-2024 13:09-0400 Diastolic blood pressure 52 mm[Hg] Dr. Yoseph Fall MD Work Phone: 3(491)529-924427 [address] 12-30-2024 13:09-0400 Heart rate 91 /min Dr. Yoseph Fall MD Work Phone: 1(059)373-717864 [place] [address] 12-30-2024 13:09-0400 Inhaled oxygen flow rate 2 L/min Dr. Yoseph Fall MD Work Phone: 7(477)200-744264 [place] [address] 12-30-2024 13:09-0400 Respiratory rate 18 /min Dr. Yoseph Fall MD Work Phone: 0(448)734-807727 [address] 12-30-2024 13:09-0400 SaO2% (BldA) [Mass fraction] 99 % Dr. Yoseph Fall MD Work Phone: [facility] 12-30-2024 13:09-0400 Systolic blood pressure 108 mm[Hg] Dr. Yoseph Fall MD Work Phone: [facility] 12-30-2024 05:14-0400 Body mass index (BMI) [Ratio] 27.4 kg/m2 Dr. Yoseph Fall MD Work Phone: [facility] 12-30-2024 05:14-0400 Body weight 72.[address] Yoseph Fall MD Work Phone: 1(406)837-226864 [place] [address] 12-28-2024 11:25-0400 Inhaled oxygen concentration 30 % Dr. Yoseph Fall MD Work Phone: 8(557)661-486334 [place] [address] 12-28-2024 09:46-0400 Body height 162.[address] Yoseph Fall MD Work Phone: 2(201)927-294234 [place] [address] 12-27-2024 15:13-0400 Body height 162.[address] Yoseph Fall MD Work Phone: 2(026)754-367834 [place] [address] 12-27-2024 15:13-0400 Body weight 71.[address] Yoseph Fall MD Work Phone: 7(206)858-955534 [place] [address] 12-27-2024 14:31-0400 Heart rate 94 /min Dr. Yoseph Fall MD Work Phone: 8(903)202-717134 [place] [address] 12-27-2024 14:31-0400 Respiratory rate 18 /min Dr. Yoseph Fall MD Work Phone: 2(481)594-798834 [place] [address] 12-27-2024 10:15-0400 Body temperature 98.3 [degF] Dr. Yoseph Fall MD Work Phone: 7(536)291-372834 [place] [address] 12-27-2024 10:15-0400 Diastolic blood pressure 70 mm[Hg] Dr. Yoseph Fall MD Work Phone: 2(595)525-433934 [place] [address] 12-27-2024 10:15-0400 Inhaled oxygen flow rate 3 L/min Dr. Yoseph Fall MD Work Phone: 9(504)540-411234 [place] [address] 12-27-2024 10:15-0400 SaO2% (BldA) [Mass fraction] 96 % Dr. Yoseph Fall MD Work Phone: 4(352)955-825834 [place] [address] 12-27-2024 10:15-0400 Systolic blood pressure 131 mm[Hg] Dr. Yoseph Fall MD Work Phone: 6(069)778-624734 [place] [address] 12-27-2024 05:15-0400 Body mass index (BMI) [Ratio] 26.7 kg/m2 Dr. Yoseph Fall MD Work Phone: 0(724)151-712834 [place] [address] 12-26-2024 20:00-0400 Diastolic blood pressure 81 mm[Hg] Dr. Yoseph Fall MD Work Phone: 2(253)864-635234 [place] [address] 12-26-2024 20:00-0400 Heart rate 106 /min Dr. Yoseph Fall MD Work Phone: 2(074)199-898034 [place] [address] 12-26-2024 20:00-0400 Inhaled oxygen flow rate 3 L/min Dr. Yoseph Fall MD Work Phone: 5(340)693-429234 [place] [address] 12-26-2024 20:00-0400 Respiratory rate 18 /min Dr. Yoseph Fall MD Work Phone: 6(307)395-925434 [place] [address] 12-26-2024 20:00-0400 SaO2% (BldA) [Mass fraction] 97 % Dr. Yoseph Fall MD Work Phone: 9(407)666-882434 [place] [address] 12-26-2024 20:00-0400 Systolic blood pressure 138 mm[Hg] Dr. Yoseph Fall MD Work Phone: 0(968)365-315934 [place] [address] 12-26-2024 19:58-0400 Body temperature 98.6 [degF] Dr. Yoseph Fall MD Work Phone: 0(163)234-997034 [place] [address] 12-26-2024 16:37-0400 Body mass index (BMI) [Ratio] 28 kg/m2 Dr. Yoseph Fall MD Work Phone: 7(569)879-302934 [place] [address] 12-26-2024 16:37-0400 Body weight [address] Yoseph Fall MD Work Phone: 4(131)638-501434 [place] [address] 12-26-2024 13:53-0400 Body height 162.[address] Yoseph Fall MD Work Phone: 4(973)062-734534 [place] [address] 12-15-2024 15:04-0400 Diastolic blood pressure 80 mm[Hg] Zaira Shea MD Work Phone: [facility] 12-15-2024 15:04-0400 Systolic blood pressure 130 mm[Hg] Zaria Shea MD Work Phone: [facility] 12-15-2024 14:45-0400 Body height 162.6 cm Rubi Corbett MD Work Phone: [facility] 12-15-2024 14:45-0400 Body mass index (BMI) [Ratio] 26.61 kg/m2 Rubi Corbett MD Work Phone: [facility] 12-15-2024 14:45-0400 Body weight 70.31 kg Rubi Corbett MD Work Phone: [facility] 12-15-2024 14:45-0400 Diastolic blood pressure 90 mm[Hg] Rubi Corbett MD Work Phone: [facility] 12-15-2024 14:45-0400 Heart rate 99 /min Rubi Corbett MD Work Phone: [facility] 12-15-2024 14:45-0400 SaO2% (BldA) [Mass fraction] 93 % Rubi Corbett MD Work Phone: [facility] 12-15-2024 14:45-0400 Systolic blood pressure 164 mm[Hg] Rubi Corbett MD Work Phone: [facility] 12-15-2024 14:36-0400 Body height 162.6 cm Zaria Shea MD Work Phone: [facility] 12-15-2024 14:36-0400 Body mass index (BMI) [Ratio] 26.61 kg/m2 Zaria Shea MD Work Phone: [facility] 12-15-2024 14:36-0400 Body weight 70.31 kg Zaria Shea MD Work Phone: [facility] 12-15-2024 14:36-0400 Heart rate 99 /min Zaria Shea MD Work Phone: [facility] 12-15-2024 14:36-0400 SaO2% (BldA) [Mass fraction] 93 % Zaria Shea MD Work Phone: [facility] 11-03-2024 13:06-0400 Body height 162.[address] Yoseph Fall MD Work Phone: [facility] 11-03-2024 13:06-0400 Body mass index (BMI) [Ratio] 25.9 kg/m2 Dr. Yoseph Fall MD Work Phone: [facility] 11-03-2024 13:06-0400 Body weight 68.[address] Yoseph Fall MD Work Phone: 0(043)986-433927 [address] 11-03-2024 13:06-0400 Diastolic blood pressure 65 mm[Hg] Dr. Yoseph Fall MD Work Phone: 7(168)007-616534 [place] [address] 11-03-2024 13:06-0400 Heart rate 86 /min Dr. Yoseph Fall MD Work Phone: 6(253)067-702627 [address] 11-03-2024 13:06-0400 Respiratory rate 20 /min Dr. Yoseph Fall MD Work Phone: [facility] 11-03-2024 13:06-0400 Systolic blood pressure 110 mm[Hg] Dr. Yoseph Fall MD Work Phone: [facility] 10-17-2024 14:32-0400 Body mass index (BMI) [Ratio] 26.22 kg/m2 Yoseph Fall MD Work Phone: [facility] 10-17-2024 14:32-0400 Body temperature 97.81 [degF] Yoseph Fall MD Work Phone: [facility] 10-17-2024 14:32-0400 Body weight 67.13 kg Yoseph Fall MD Work Phone: [facility] 10-17-2024 14:32-0400 Diastolic blood pressure 64 mm[Hg] Yoseph Fall MD Work Phone: [facility] 10-17-2024 14:32-0400 Heart rate 82 /min Yoseph Fall MD Work Phone: [facility] 10-17-2024 14:32-0400 SaO2% (BldA) [Mass fraction] 94 % Yoseph Fall MD Work Phone: [facility] 10-17-2024 14:32-0400 Systolic blood pressure 105 mm[Hg] Yoseph Fall MD Work Phone: [facility] 10-09-2024 15:47-0400 Heart rate 109 /min Dr. Yoseph Fall MD Work Phone: 4(484)013-119864 [place] [address] 10-09-2024 15:47-0400 Respiratory rate 20 /min Dr. Yoseph Fall MD Work Phone: 9(260)417-743334 [place] [address] 10-09-2024 15:37-0400 Inhaled oxygen flow rate 2 L/min Dr. Yoseph Fall MD Work Phone: 3(523)417-228134 [place] [address] 10-09-2024 15:35-0400 Body temperature 98.1 [degF] Dr. Yoseph Fall MD Work Phone: 9(526)768-721034 [place] [address] 10-09-2024 15:35-0400 Diastolic blood pressure 72 mm[Hg] Dr. Yoseph Fall MD Work Phone: 2(551)383-407834 [place] [address] 10-09-2024 15:35-0400 SaO2% (BldA) [Mass fraction] 97 % Dr. Yoseph Fall MD Work Phone: 4(392)561-845434 [place] [address] 10-09-2024 15:35-0400 Systolic blood pressure 142 mm[Hg] Dr. Yoseph Fall MD Work Phone: 6(377)740-852534 [place] [address] 10-09-2024 04:58-0400 Body mass index (BMI) [Ratio] 26.1 kg/m2 Dr. Yoseph Fall MD Work Phone: 7(141)715-904034 [place] [address] 10-09-2024 04:58-0400 Body weight 69.[address] Yoseph Fall MD Work Phone: 7(361)282-712334 [place] [address] 10-08-2024 11:37-0400 Body height 162.[address] Yoseph Fall MD Work Phone: 2(229)043-436034 [place] [address] 09-30-2024 22:20-0400 Inhaled oxygen concentration 30 % Dr. Yoseph Fall MD Work Phone: 5(496)432-083634 [place] [address] 09-29-2024 05:00-0400 Body temperature 98.8 [degF] Dr. Yoseph Fall MD Work Phone: 7(565)843-908334 [place] [address] 09-29-2024 05:00-0400 Diastolic blood pressure 65 mm[Hg] Dr. Yoseph Fall MD Work Phone: 3(759)656-327534 [place] [address] 09-29-2024 05:00-0400 Heart rate 111 /min Dr. Yoseph Fall MD Work Phone: 5(363)191-703334 [place] [address] 09-29-2024 05:00-0400 Respiratory rate 21 /min Dr. Yoseph Fall MD Work Phone: 1(292)291-083934 [place] [address] 09-29-2024 05:00-0400 SaO2% (BldA) [Mass fraction] 96 % Dr. Yoseph Fall MD Work Phone: 1(408)860-276734 [place] [address] 09-29-2024 05:00-0400 Systolic blood pressure 123 mm[Hg] Dr. Yoseph Fall MD Work Phone: 9(477)798-162434 [place] [address] 09-29-2024 03:23-0400 Inhaled oxygen flow rate 3 L/min Dr. Yoseph Fall MD Work Phone: 7(533)562-778934 [place] [address] 09-29-2024 02:19-0400 Body height 162.[address] Yoseph Fall MD Work Phone: 7(052)646-004034 [place] [address] 09-29-2024 02:19-0400 Body mass index (BMI) [Ratio] 27 kg/m2 Dr. Yoseph Fall MD Work Phone: 6(687)318-986634 [place] [address] 09-29-2024 02:19-0400 Body weight 71.[address] Yoseph Fall MD Work Phone: 3(582)762-951334 [place] [address] 04-07-2024 08:39-0500 Body mass index (BMI) [Ratio] 29.23 kg/m2 Yoesph Fall MD Work Phone: [facility] 04-07-2024 08:39-0500 Body temperature 98.1 [degF] Yoseph Fall MD Work Phone: [facility] 04-07-2024 08:39-0500 Body weight 74.84 kg Yoseph Fall MD Work Phone: [facility] 04-07-2024 08:39-0500 Diastolic blood pressure 76 mm[Hg] Yoseph Fall MD Work Phone: [facility] Comment on above: home bp 04-07-2024 08:39-0500 Heart rate 86 /min Yoseph Fall MD Work Phone: [facility] 04-07-2024 08:39-0500 SaO2% (BldA) [Mass fraction] 93 % Yoseph Fall MD Work Phone: [facility] 04-07-2024 08:39-0500 Systolic blood pressure 141 mm[Hg] Yoseph Fall MD Work Phone: [facility] Comment on above: home bp 07-22-2023 17:49-0400 Heart rate 93 /min Dr. Yoseph Fall Work Phone: [facility] 07-22-2023 17:49-0400 Respiratory rate 18 /min Dr. Yoseph Fall Work Phone: [facility] 07-22-2023 16:37-0400 Body temperature 98.7 [degF] Dr. Yoseph Fall Work Phone: [facility] 07-22-2023 16:37-0400 Diastolic blood pressure 68 mm[Hg] Dr. Yoseph Fall Work Phone: [facility] 07-22-2023 16:37-0400 SaO2% (BldA) [Mass fraction] 96 % Dr. Yoseph Fall Work Phone: [facility] 07-22-2023 16:37-0400 Systolic blood pressure 146 mm[Hg] Dr. Yoseph Fall Work Phone: [facility] 07-22-2023 11:00-0400 Inhaled oxygen flow rate 2.5 L/min Dr. Yoseph Fall Work Phone: [facility] 07-22-2023 06:00-0400 Body mass index (BMI) [Ratio] 26.5 kg/m2 Dr. Yoseph Fall Work Phone: [facility] 07-22-2023 06:00-0400 Body weight 70.[address] Yoseph Fall Work Phone: [facility] 07-20-2023 05:02-0400 Body height 162.56 cm [facility] 07-20-2023 05:02-0400 Body mass index (BMI) [Ratio] 26.6 kg/m2 [facility] 07-20-2023 05:02-0400 Body weight 70.6 kg [facility] 07-20-2023 05:00-0400 Body temperature 98.9 [degF] [facility] 07-20-2023 05:00-0400 Diastolic blood pressure 72 mm[Hg] [facility] 07-20-2023 05:00-0400 Heart rate 124 /min [facility] 07-20-2023 05:00-0400 Inhaled oxygen flow rate 3.5 L/min [facility] 07-20-2023 05:00-0400 Respiratory rate 24 /min [facility] 07-20-2023 05:00-0400 SaO2% (BldA) [Mass fraction] 93 % [facility] 07-20-2023 05:00-0400 Systolic blood pressure 124 mm[Hg] [facility] 02-19-2023 14:12-0400 Body weight 73.48 kg Yoseph Fall MD Work Phone: [facility] 02-19-2023 14:12-0400 Diastolic blood pressure 78 mm[Hg] Yoseph Fall MD Work Phone: [facility] 02-19-2023 14:12-0400 Heart rate 100 /min Yoseph Fall MD Work Phone: [facility] 02-19-2023 14:12-0400 Respiratory rate 20 /min Yoseph Fall MD Work Phone: [facility] 02-19-2023 14:12-0400 SaO2% (BldA) [Mass fraction] 96 % Yoseph Fall MD Work Phone: [facility] 02-19-2023 14:12-0400 Systolic blood pressure 130 mm[Hg] Yoseph Fall MD Work Phone: [facility] 05-01-2022 14:41-0500 Body weight 78.47 kg Yoseph Fall MD Work Phone: [facility] 05-01-2022 14:41-0500 Diastolic blood pressure 81 mm[Hg] Yoseph Fall MD Work Phone: [facility] 05-01-2022 14:41-0500 Heart rate 105 /min Yoseph Fall MD Work Phone: [facility] 05-01-2022 14:41-0500 Systolic blood pressure 132 mm[Hg] Yoseph Fall MD Work Phone: [facility] 02-20-2022 13:22-0400 Body weight 77.56 kg Respiratory Wstr Work Phone: [facility] 02-20-2022 13:22-0400 Heart rate 108 /min Respiratory Wstr Work Phone: [facility] 02-20-2022 13:22-0400 Respiratory rate 16 /min Respiratory Wstr Work Phone: [facility] 02-20-2022 13:22-0400 SaO2% (BldA) [Mass fraction] 93 % Respiratory Wstr Work Phone: [facility] Encounters Encounter Date Encounter Type Care Provider Facility Start: 02-13-2025 ambulatory Jessica Barra JP Facili ty:[facility] Start: 02-08-2025 End: 02-08-2025 Ingris WATTS -[facility] Work Phone: Start: 02-08-2025 End: 02-08-2025 ambulatory Yoseph Fall Facility:[facility] Start: 02-08-2025 ambulatory Jessica Barra OLS Facili ty:[facility] Start: 02-08-2025 Dr. Jessica Luo MD [facility] Start: 02-06-2025 ambulatory Jessica TRAMMELL Facili ty:[facility] Start: 02-06-2025 Dr. Jessica Luo MD [facility] Start: 02-01-2025 ambulatory Yoseph Fall Facilit y:[facility] Start: 02-01-2025 Dr. Jessica Luo MD -[facility] Start: 01-31-2025 Dr. Debby Gu MD -[facility] Work Phone: Start: 01-30-2025 Dr. Debby Gu MD -[facility] Work Phone: Start: 01-29-2025 Dr. Debby Gu MD -[facility] Work Phone: Start: 01-28-2025 Dr. [facility] Work Phone: Start: 01-27-2025 Dr. Debby Gu MD [facility] Work Phone: Start: 01-26-2025 Dr. Amy Keenan MD -[facility] Start: 01-26-2025 Dr. Andriy Guzmán DO [facility] Start: 01-26-2025 Dr. Dionne Porter MD - [facility] Work Phone: Start: 01-25-2025 Dr. Andriy Guzmán DO [facility] Start: 01-25-2025 ambulatory Yoseph Fall [...] Start: 01-23-2025 End: 01-23-2025 ambulatory GREGOR VALENCIAAUSTEN Facility:[facility] Start: 01-15-2025 ambulatory Yoseph Lewis y:[facility] Start: 01-12-2025 End: 01-12-[address] Yoseph Fall MD Work Phone: -[facility] Start: 01-12-2025 End: 01-12-2025 Dr. Zaria Shea MD -[facility] Start: 01-12-2025 End: 01-12-2025 ambulatory Zaria Chen Facility:[facility] Start: 01-09-2025 End: 01-09-2025 Telephone encounter Yoseph Fall MD Work Phone: [facility] [place] Comment on above: Medication Request Start: 01-08-2025 End: 01-08-2025 Telephone encounter Yoseph Fall MD Work Phone: [facility] [place] Comment on above: Delay In Care Physic al Therapy Start: 01-05-2025 End: 01-05-2025 ambulatory ZARIA SHEA [facility] Start: 01-05-2025 End: 01-05-2025 Patient encounter status Zaria Shea MD Work Phone: [facility] Work Phone: Start: 01-05-2025 End: 01-05-2025 Subsequent hospital visit by physician Zaria Shea MD Work Phone: [facility] Comment on above: Aortic valve stenosi s, etiology of cardiac valve disease unspecified (Primary Dx); Preop cardiovascular exam Start: 01-04-2025 End: 01-04-2025 ambulatory Shonda Bacon APRN - ENGINE MECHANIC Work Phone: [facility] [place] Start: 01-03-2025 End: 01-03-2025 Telephone encounter Yoseph Fall MD Work Phone: [facility] Comment on above: Delay In Care Social [...] Start: 12-29-2024 Non-patient / Non-visit Stacy Jha [facility] [facility] -[facility] Start: 12-29-2024 Stacy Jha [employer] [facility] -[facility] Start: 12-28-2024 Non-patient / Non-visit Dr. Lynne Mak [facility] Work Phone: Start: 12-28-2024 Dr. Lynne Peoples [facility] Work Phone: Start: 12-28-2024 Non-patient / Non-visit Kyle Aguilar nd DO -[facility] Start: 12-28-2024 Kyle Mendenhall DO -[facility] Start: 12-28-2024 Non-patient / Non-visit Stacy Jha [employer] KEEPER-C -[facility] Start: 12-28-2024 Stacy Jha [employer]EEPER-C -[facility] Start: 12-27-2024 Non-patient / Non-visit Dr. Lynne Mak [facility] Work Phone: Start: 12-27-2024 Dr. Lynne Peoples [facility] Work Phone: Start: 12-27-2024 Non-patient / Non-visit Stacy Yudelka [employer] [facility] -[facility] Start: 12-27-2024 Stacy Jha [employer] KEEPER-C [facility] Start: 12-27-2024 End: 01-01-2025 Telephone encounter Yoseph Fall MD Work Phone: [facility] [place] Comment on above: Patient Update Start: 12-26-2024 Non-patient / Non-visit Dr. Dionne Porter MD -[facility] Work Phone: Start: 12-26-2024 ambulatory Yoseph Lewis y:[facility] Start: 12-26-2024 End: 12-30-2024 Evaluation [...] Yoseph Fall MD Work Phone: [facility] [place] Comment on above: Patient Update Start: 12-19-2024 End: 12-19-2024 Refill Yoseph Fall MD Work Phone: [facility] [place] Comment on above: Refill Request Start: 12-15-2024 End: 12-15-2024 [facility] Start: 12-15-2024 End: 12-15-2024 Office consultation new/estab patient 80 min Rubi Corbett MD Work Phone: [facility] [place] Comment on above: Severe aortic stenos is (Primary Dx); Chronic respiratory failure with hypoxia (HCC) Start: 12-15-2024 End: 12-15-2024 ambulatory RUBI CORBETT [facility] Start: 12-15-2024 End: 12-15-2024 Encounter for preprocedural cardiovascular examination ZARIA SHEA [facility] Start: 12-15-2024 End: 12-15-2024 Office outpatient new 60 minutes Zaria Shea MD Work Phone: [facility] Comment on above: Preop cardiovascular exam (Primary Dx); Nonrheumatic aortic valve stenosis Start: 12-15-2024 End: 12-15-2024 Patient encounter status Zaria Shea MD Work Phone: [facility] Start: 12-08-2024 End: 12-08-2024 Refill Yoseph Fall MD Work Phone: [facility] [place] Comment on above: Refill Request Insurance Authorizat ion Start: 11-27-2024 End: 11-27-2024 Telephone encounter Yoseph Fall MD Work Phone: [facility] [place] Comment on above: [facility] Nursing Call Start: 11-24-2024 End: 11-24-2024 Telephone encounter Shira HOLM Work Phone: [employer] Comment on above: Care Coordination Start: 11-23-2024 End: 11-23-2024 [facility] Gregor Fernandez APRN.ENGINE MECHANIC Work Phone: [employer] Comment on above: [...] Other chronic pain; Dependence on supplemental oxygen; correction (current) use of 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 Refill Request Start: 11-22-2024 End: 11-28-2024 Telephone encounter Zaria Shea MD Work Phone: [facility] Start: 11-21-2024 End: 11-21-2024 ambulatory GREGOR FERNANDEZ Facility:[facility] Start: 11-21-2024 End: 11-21-2024 Patient encounter procedure Gregor Fernandez GLASSINE MACHINE TENDER.ENGINE MECHANIC Work Phone: [email or web address] Comment on above: No-show for appointm ent (Primary Dx); Stage 3 severe COPD by GOLD classification (HCC); Chronic low back pain with sciatica, sciatica laterality unspecified, unspecified back pain laterality Start: 11-21-2024 End: 11-21-2024 Telemedicine consultation with patient Gregor Fernandez GLASSINE MACHINE TENDER.ENGINE MECHANIC Work Phone: [employer] Start: 11-20-2024 End: 11-24-2024 Telephone encounter [facility] Comment on above: Patient Update Start: 11-10-2024 End: 11-13-2024 Telephone encounter [facility]oseph Fall MD [facility] Comment on above: Patient Request; Pat ient Update Start: 11-08-2024 End: 11-08-2024 [facility] Haylee Martínez Carter GLASSINE MACHINE TENDER.ENGINE MECHANIC Work Phone: [employer] Comment on above: NO SHOW (Primary [...] Refill Yoseph Fall MD Work Phone: [facility] Comment on above: Home Care Management ; Refill Request Start: 10-24-2024 End: 11-03-2024 Telephone encounter Yoseph Fall MD Work Phone: [employer] Comment on above: pall med- [id number]; Ini tial Consult Patient Request order question Start: 10-23-2024 End: 10-23-2024 Telephone encounter Yoseph Fall MD Work Phone: [facility] [place] Comment on above: Patient Update Start: 10-20-2024 End: 10-20-2024 Telephone encounter Yoseph Fall MD Work Phone: [facility] [place] Comment on above: Patient Update; Medi cation Request Start: 10-19-2024 End: 10-20-2024 Telephone encounter Yoseph Fall MD Work Phone: [facility] [place] Comment on above: Patient Update Start: 10-18-2024 End: 10-20-2024 Telephone encounter Yoseph Fall MD Work Phone: [facility] [place] Comment on above: Orders; Occupation T herapy Plan of care (SW Consult); Physical Therapy Plan of Care Start: 10-17-2024 End: 10-17-2024 ambulatory YOSEPH FALL Facility:[facility] Start: 10-17-2024 End: 10-17-2024 Transitional care manage srvc 14 day discharge Yoseph Fall MD Work Phone: [facility] [place] Comment on above: Stage 3 severe COPD by GOLD classification (HCC) (Primary Dx); Chronic low back pain with sciatica, sciatica laterality unspecified, unspecified back pain laterality; Essential hypertension, benign; Tobacco use disorder; Generalized anxiety disorder; Aortic valve stenosis, etiology of cardiac valve disease unspecified Start: 10-13-2024 End: 10-13-2024 Telephone encounter Yoseph Fall MD Work Phone: [facility] [place] Comment on above: PT Delay in Care Ord er Start: 10-12-2024 End: 10-17-2024 Refill Yoseph Fall MD Work Phone: [facility] [place] Comment on above: Refill Request Start: 10-11-2024 End: 10-12-2024 Refill Yoseph Fall MD Work Phone: [facility] Comment on above: Refill Request Start: 10-10-2024 End: 10-12-2024 ambulatory Naima Haines [facility] Start: 10-10-2024 End: 10-12-2024 Telephone encounter Yoseph Fall MD Work Phone: [facility] Comment on above: [facility] patient updat e Transition Of Care Start: 10-09-2024 Non-patient / Non-visit Dr. Alessandro Palma MD -[facility] Work Phone: Start: 10-09-2024 Dr. Alessandro Palma MD [facility] Work Phone: Start: 10-09-2024 End: 10-10-2024 Telephone encounter Yoseph Fall MD Work Phone: [facility] Comment on above: Patient Update Orders Medication Problem; Patient Update Start: 10-08-2024 Non-patient / Non-visit Dr. Lynne Schafer MD [facility] Work Phone: Start: 10-08-2024 Dr. Lynne Schafer MD - [place] [facility] Work Phone: Start: 10-07-2024 Non-patient / Non-visit Dr. Lynne Schafer MD [facility] Work Phone: Start: 10-07-2024 Dr. Lynne Schafer MD [facility] Work Phone: Start: 10-07-2024 Non-patient / Non-visit Dr. Michael Plasencia MD -[facility] Start: 10-07-2024 Dr. Michael Plasencia MD -[facility] Start: 10-06-2024 Non-patient / Non-visit Dr. Lynne Schafer MD [facility] Work Phone: Start: 10-06-2024 Dr. Lynne Booth [place] [facility] Work Phone: Start: 10-06-2024 Non-patient / Non-visit Dr. Michael Plasencia MD [facility] Start: 10-06-2024 Dr. Michael Plasencia MD [facility] Start: 10-05-2024 Non-patient / Non-visit Dr. Lynne Schafer MD [facility] Work Phone: Start: 10-05-2024 Dr. Lynne Schafer MD [facility] Work Phone: Start: 10-04-2024 Non-patient / Non-visit Dr. Lynne Schafer MD [facility] Work Phone: Start: 10-04-2024 Dr. Lynne Schafer MD [facility] Work Phone: Start: 10-04-2024 Non-patient / Non-visit Dr. Junito Madrid MD [facility] Start: 10-04-2024 Dr. Junito Madrid MD [facility] Start: 10-03-2024 Non-patient / Non-visit Dr. Lynne Schafer MD [facility] Work Phone: Start: 10-03-2024 Dr. Lynne Schafer MD [facility] Work Phone: Start: 10-03-2024 Non-patient / Non-visit Dr. Junito Madrid MD [facility] Start: 10-03-2024 Dr. Junito Madrid MD [facility] Start: 10-02-2024 ambulatory Dillon Lopez Facility:[facility] Start: 10-02-2024 Non-patient / Non-visit Dr. iDllon geiger MD [facility] Start: 10-02-2024 Dr. Dillon Lopez MD [facility] Start: 10-02-2024 Non-patient / Non-visit Dr. Lynne Schafer MD [facility] Work Phone: Start: 10-02-2024 Dr. Lynne Schafer MD - [place] [facility] Work Phone: Start: 10-01-2024 Non-patient / Non-visit Dr. April Bolanos MD -[place] [facility] Work Phone: Start: 10-01-2024 Dr. Jan Bolanos MD -[place] [facility] Work Phone: Start: 09-30-2024 Non-patient / Non-visit Dr. April Bolanos MD -[place] [facility] Work Phone: Start: 09-30-2024 Dr. Jan Bolanos MD -[place] [facility] Work Phone: Start: 09-29-2024 ambulatory [facility] Facility :[facility] Start: 09-29-2024 End: 10-09-2024 Evaluation and management of inpatient Dr. Alessandro Palma MD -[facility] Work Phone: Start: 09-29-2024 End: 10-09-2024 Dr. Alessandro Palma MD -[facility] Work Phone: Start: 09-29-2024 Evaluation and management of inpatient Dr. Dionne Porter MD -[facility] Work Phone: Start: 09-29-[address] Yoseph Fall MD Work Phone: [facility] Work Phone: Start: 09-29-2024 ambulatory [facility] Facility [facility] Start: 09-29-2024 Non-patient / Non-visit Dr. Dionne Porter MD -[place] [facility] Work Phone: Start: 09-29-2024 Dr. Dionne Porter MD - [place] [facility] Work Phone: Start: 09-28-2024 End: 09-28-2024 Refill Yoseph Fall MD Work Phone: [facility] Comment on above: Refill Request Start: 08-29-2024 End: 08-29-2024 Refill Yoseph Fall MD Work Phone: [address] [place] [address] Comment on above: Refill Request Start: 08-15-2024 [...] Yoseph Fall MD Work Phone: [facility] [place] Comment on above: Refill Request Start: 06-12-2024 End: 06-12-2024 Telephone encounter Yoseph Fall MD Work Phone: [facility] [place] Comment on above: Forms ([employer]) Start: 06-02-2024 End: 06-07-2024 Telephone encounter Yoseph Fall MD Work Phone: [facility] [place] Comment on above: Insurance Authorizat ion Start: 06-01-2024 End: 06-01-2024 Refill Yoseph Fall MD Work Phone: [facility] [place] Comment on above: Refill Request; Medi cation Problem ([employer]) Start: 05-16-2024 End: 06-16-2024 Refill Yoseph Fall MD Work Phone: [facility] [place] Comment on above: Refill Request Start: 04-10-2024 End: 04-10-2024 Refill Yoseph Fall MD Work Phone: [facility] [place] Comment on above: Refill Request Start: 04-07-2024 End: 04-07-2024 Distance Health Yoseph Fall MD Work Phone: [facility] [place] Comment on above: Chronic low back geoffrey n with sciatica, sciatica laterality unspecified, unspecified back pain laterality (Primary Dx); Essential hypertension, benign; Generalized anxiety disorder; Depression, unspecified depression type; Gastroesophageal reflux disease without esophagitis Start: 03-21-2024 End: 03-22-2024 Telephone encounter Yoseph Fall MD Work Phone: [facility] [place] Comment on above: Patient Question Start: 03-20-2024 End: 03-20-2024 Refill Yoseph Fall MD Work Phone: [facility] [place] Comment on above: Refill Request Start: 03-03-2024 End: 03-03-2024 Refill Yoseph Fall MD Work Phone: [facility] [place] Comment on above: Refill Request Start: 02-14-2024 End: 02-14-2024 Refill Yoseph Fall MD Work Phone: [facility] [place] Comment on above: Refill Request Start: 02-03-2024 End: 02-04-2024 Telephone encounter Yoseph Fall MD Work Phone: [facility] [place] Comment on above: Patient Question Start: 01-18-2024 End: 01-18-2024 Refill Yoseph Fall MD Work Phone: [facility] [place] Comment on above: Refill Request Start: 12-24-2023 End: 12-24-2023 Refill Yoseph Fall MD Work Phone: [facility] [place] Comment on above: Refill Request Start: 11-29-2023 End: 11-29-2023 Distance [facility] Yoseph Fall MD Work Phone: [facility] [place] Comment on above: Stage 3 severe COPD by GOLD classification ([facility]) (Primary Dx); Generalized osteoarthrosis, involving multiple sites; Chronic low back pain with sciatica, sciatica laterality unspecified, unspecified back pain laterality; Essential hypertension, benign; Tobacco use disorder; Dysthymic disorder Start: 11-16-2023 Refill Yoseph emmanuel MD Work Phone: [facility] [place] Comment on above: Refill Request Start: 11-08-2023 Telephone encounter Yoseph lie MD Work Phone: [facility] [place] Comment on above: Insurance Authorizat ion Start: 11-05-2023 Refill Yoseph emmanuel MD Work Phone: [facility] [place] Comment on above: Refill Request Start: 10-22-2023 Telephone encounter Yoseph lei MD Work Phone: [address] [place] [address] Comment on above: Medication Request ( Requesting antibiotic) Start: 10-18-2023 Refill Yoseph emmanuel MD Work Phone: [facility] [place] Comment on above: Refill Request Start: 10-01-2023 Telephone encounter Yoseph lei MD Work Phone: [facility] [place] Comment on above: Medication Problem Start: 09-22-2023 Refill Yoseph emmanuel MD Work Phone: [facility] Comment on above: Refill Request Start: 09-15-2023 Refill Yoseph emmanuel MD Work Phone: [facility] [place] Comment on above: Refill Request Start: 08-23-2023 End: 08-23-2023 Distance [facility] Yoseph Fall MD Work Phone: [facility] [place] Comment on above: Stage 3 severe COPD by GOLD classification ([facility]) (Primary Dx); Essential hypertension, benign; Cigarette smoker; Generalized anxiety disorder; Chronic low back pain with sciatica, sciatica laterality unspecified, unspecified back pain laterality Start: 07-27-2023 Refill Yoseph emmanuel MD Work Phone: [facility] Comment on above: Refill Request Start: 07-26-2023 End: 07-26-2023 Patient Outreach Yoseph Fall MD Work Phone: [facility] Comment on above: Transition Of Care Obstructive chronic bronchitis with exacerbation (HCC) (Primary Dx); Stage 3 severe COPD by GOLD classification (HCC); Cigarette smoker; Chronic respiratory failure with hypoxia (HCC) Start: 07-22-2023 Non-patient / Non-visit Dr. Jos Fall Work Phone: [facility] Work Phone: Start: 07-21-2023 Non-patient / Non-visit Dr. Jos Fall Work Phone: [facility] Work Phone: Start: 07-20-2023 End: 07-22-2023 Evaluation and management of inpatient [facility] Work Phone: Start: 07-19-2023 Telephone encounter Yoseph lei MD Work Phone: [facility] Comment on above: Medication Request; Cough Start: 06-28-2023 Refill Yoseph emmanuel MD Work Phone: [facility] Comment on above: Med Change Request Start: 06-17-2023 Telephone encounter Yoseph lei MD Work Phone: [facility] Comment on above: Forms ([employer] re: incontinence supplies) Start: 06-16-2023 ambulatory Yoseph emmanuel MD Work Phone: [facility] [place] Start: 06-15-2023 Telephone encounter Yoseph lei MD Work Phone: [facility] Comment on above: Mouth/Lip Problem Start: 06-14-2023 Telephone encounter Yoseph lei MD Work Phone: [facility] [place] Comment on above: Insurance Authorizat ion Start: 06-11-2023 Refill Yoseph emmanuel MD Work Phone: [facility] [place] Comment on above: Refill Request Start: 03-30-2023 Telephone encounter Yoseph lei MD Work Phone: [facility] [place] Start: 03-17-2023 Refill Yoseph emmanuel MD Work Phone: [facility] [place] Comment on above: Refill Request Start: 02-19-2023 End: 02-19-2023 Patient encounter procedure Yoseph Fall MD Work Phone: [facility] [place] Comment on above: Chronic low back geoffrey n with sciatica, sciatica laterality unspecified, unspecified back pain laterality (Primary Dx); Generalized osteoarthrosis, involving multiple sites; Generalized anxiety disorder; Depression, unspecified depression type; Essential hypertension, benign; Elevated glucose; Stage 3 severe COPD by GOLD classification ([facility]); Gastroesophageal reflux disease, unspecified whether esophagitis present; Chronic obstructive pulmonary disease, unspecified COPD type ([facility]); Uncomplicated asthma, unspecified asthma severity, unspecified whether persistent; Tobacco use disorder; Need for influenza vaccination; Encounter for medication monitoring Start: 01-15-2023 Refill Yoseph emmanuel MD Work Phone: [facility] [place] Comment on above: Refill Request Start: 12-29-2022 Refill Yoseph emmanuel MD Work Phone: [facility] [place] Comment on above: Refill Request Start: 12-10-2022 Telephone encounter Yoseph lei MD Work Phone: [facility] [place] Comment on above: Orders Start: 11-06-2022 Refill Nelson BOWMAN RN.[facility] Work Phone: [facility] [place] Comment on above: Refill Request Start: 11-05-2022 Refill Nelson BOWMAN RN.ENGINE MECHANIC Work Phone: [facility] [place] Comment on above: Refill Request Start: 08-21-2022 Telephone encounter Yoseph lei MD Work Phone: [facility] [place] Comment on above: Patient Request Start: 07-02-2022 Telephone encounter Yoseph lei MD Work Phone: [facility] [place] Comment on above: Forms (Incontinence supply form) Start: 06-29-2022 Refill Yoseph emmanuel MD Work Phone: [facility] [place] Comment on above: Refill Request Start: 06-08-2022 Refill Yoseph emmanuel MD Work Phone: [facility] [place] Comment on above: Refill Request Start: 05-15-2022 Refill Yoseph emmanuel MD Work Phone: [facility] Comment on above: Refill Request Start: 05-05-2022 Refill Yoseph emmanuel MD Work Phone: [facility] [place] Comment on above: Refill Request Start: 05-01-2022 End: 05-01-2022 [facility] Yoseph Fall MD Work Phone: [facility] [place] Comment on above: Stage 3 severe COPD by GOLD classification ([facility]) (Primary Dx); Chronic low back pain with sciatica, sciatica laterality unspecified, unspecified back pain laterality; Chronic respiratory failure with hypoxia ([facility]); Essential hypertension, benign; Generalized anxiety disorder; Tobacco use disorder Start: 04-21-2022 Refill Yoseph emmanuel MD Work Phone: [facility] [place] Comment on above: Refill Request Start: 02-27-2022 Telephone encounter Mercedez Zarate PA-C Work Phone: Pulmonary Medicine Comment on above: Orders Start: 02-20-2022 End: 02-20-2022 ambulatory Respiratory Therapist [facility] Work Phone: Pulmonary Medicine Comment on above: Spirometry Start: 02-20-2022 End: 02-20-2022 Patient encounter procedure Respiratory Therapist [facility] Work Phone: [facility] Start: 01-20-2022 Refill Yoseph emmanuel MD Work Phone: [facility] [place] Comment on above: Refill Request Start: 01-13-2022 Orders Only Michelle Guzmán MD Work Phone: Pulmonary Medicine Comment on above: Chronic obstructive pulmonary disease, unspecified COPD type (HCC) (Primary Dx) Start: 01-08-2022 Telephone encounter Michelle Guzmán MD Work Phone: [facility] Comment on above: Orders Start: 12-18-2021 Refill Yoseph emmanuel MD Work Phone: [facility] [place] Comment on above: Refill Request Start: 11-17-2021 Refill Yoseph emamnuel MD Work Phone: [facility] [place] Comment on above: Refill Request Start: 10-17-2021 End: 10-17-2021 Distance [facility] Yoseph Fall MD Work Phone: [facility] [place] Comment on above: Chronic obstructive pulmonary disease, unspecified COPD type (HCC) (Primary Dx); Chronic low back pain with sciatica, sciatica laterality unspecified, unspecified back pain laterality; Essential hypertension, benign; Uncomplicated asthma, unspecified asthma severity, unspecified whether persistent; Generalized anxiety disorder Start: 09-30-2021 Refill Yoseph emmanuel MD Work Phone: [facility] [place] Comment on above: Refill Request Start: 09-15-2021 Refill Yoseph emmanuel MD Work Phone: [facility] [place] Comment on above: Refill Request Start: 08-27-2021 Refill Yoseph emmanuel MD Work Phone: [facility] [place] Comment on above: Refill Request Start: 08-18-2021 Refill Yoseph emmanuel MD Work Phone: [facility] [place] Comment on above: Refill Request Start: 08-01-2021 Orders Only Yoseph emmanuel MD Work Phone: [facility] [place] Comment on above: Essential hypertensi on, [...] Work Phone: Start: 01-25-[address] Yosehp Fall MD Work Phone: Start: 01-25-[address] Yoseph anderson MD Work Phone: Start: 01-25-2025 Urine microscopy: red cells Dr. Yoseph lei MD Work Phone: Start: 01-25-2025 Urnls dip stick/tablet reagent auto microscopy Dr. Yoseph Fall MD Work Phone: Start: 01-25-2025 Plain chest X-ray Dr. Yoseph aFll MD Work Phone: Start: 01-25-2025 CT angiography [...] Phone: Start: 09-29-[address] 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 kristyn Disease Visit Annual PCP Team Chronic Disease Visit [facility] Start: 07-06-2025 Screening for malign ant neoplasm of breast Mammogram Screening [facility] Comment on above: Postponed from 10/16 (Declined at this time) Start: 04-07-2025 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 kristyn Disease Visit Annual PCP Team Chronic Disease Visit [facility] Start: 02-13-2025 [facility] Start: 02-08-2025 End: 02-08-2025 Evaluation of diagnostic study results [facility] Start: 01-31-2025 Patient discharge [facility] Start: 01-30-2025 Enteric precautions [facility] Start: 01-29-2025 Oxygen therapy [facility] Start: 01-29-2025 Inhalation therapy procedure [facility] Start: 01-29-2025 Physiotherapy of chest [facility] Start: 01-28-2025 Speech therapy assessment [facility] Start: 01-28-2025 Care planning and pr oblem solving actions [facility] Start: 01-27-2025 Continuous pulse oximetry [facility] Start: 01-27-2025 Dual pressure sponta neous ventilation support [facility] Start: 01-26-2025 End: 01-27-2025 [facility] Start: 01-26-2025 Administration of bl ood product [facility] Start: 01-26-2025 Gas panel - Arterial blood [facility] Start: 01-26-2025 Transfusion of red b lood cells [facility] Start: 01-25-2025 Application of intermittent pneumatic compression device [facility] Start: 01-25-2025 Assessment of risk o f venous thromboembolism [facility] Start: 01-25-[address] [facility] Start: 01-25-2025 Continuous pulse oximetry [facility] Start: 01-25-2025 Elevation of head of bed [facility] Start: 01-25-2025 Insertion of cathete r into peripheral vein [facility] Start: 01-25-2025 Measuring intake and output [facility] Start: 01-25-2025 Patient education [facility] Start: 01-25-2025 Providing care accor ding to standard [facility] Start: 01-25-2025 Referral for physica l therapy [facility] Start: 01-25-2025 Referral to occupati onal therapist [facility] Start: 01-25-2025 Vital signs measurements [facility] Start: 01-25-2025 [facility] Start: 01-25-2025 Following clinical p athway protocol [facility] Start: 01-25-2025 [facility] Start: 01-25-2025 Airway suction technique [facility] Start: 01-25-2025 Verification routine [place] Start: 01-25-2025 Hospital admission, emergency, from emergency room, medical nature [facility] Start: 01-25-2025 Admission procedure [facility] Start: 01-25-[address] [facility] Start: 01-25-2025 Creatine kinase [Enz ymatic activity/volume] in Serum or Plasma [facility] Start: 01-25-2025 Triglycerides measurement [facility] Start: 01-25-2025 End: 01-25-2025 [facility] Start: 01-25-2025 Patient referral to dietitian [facility] Start: 01-25-2025 [facility] Start: 01-23-2025 End: 01-23-2025 ambulatory 01/23/2025 9:00 AM EDT [employer] [facility] [address] [place] [id number] Gregor Fernandez APRN.[facility] [address] [place] [id number] 2 month@2month [employer] Comment on above: [id number] 2 month@2month Start: 01-19-2025 End: 01-19-2025 Follow-up encounter 01/19/2025 2:20 PM EDT [facility] [address] [place], [place] [id number] Yoseph Fall MD [address] [place], [place] [id number] CALL PT 3 month follow up Family [facility] Comment on above: CALL PT 3 month foll ow up Start: 01-19-2025 End: 01-19-2025 Patient encounter procedure [facility] [place] Comment on above: 3 month follow up 3 month follow up/ p rocedure follow up of heart cath-[facility] 01/05/25 Start: 01-05-2025 End: 01-05-2026 Basic metabolic 1998 panel - Serum or Plasma Basic metabolic panel Lab Routine Aortic valve stenosis, etiology of cardiac valve disease unspecified Expected: 01/05/2025 (Approximate), Expires: 01/05/[address] [facility] Work Phone: Comment on above: Expected: 01/05/2025 (Approximate), Expires: 01/05/2026 Start: 01-05-2025 End: 01-05-2025 Admission to same day surgery center 01/05/2025 10:00 AM EDT - 01/05/2025 11:00 AM EDT Surgery [facility] [address] [place] [address] [phone] Zaria Shea MD [address] [place] [address] Left and right heart cath / coronary angiography [facility] Comment on above: Left and right heart cath / coronary angiography Start: 01-05-2025 Subsequent hospital visit by physician 01/05/2025 10:00 AM EDT Hospital Encounter [facility] [address] [place] [id number] Zaria Shea MD [address] [place] [address] Preop cardiovascular exam [facility] Comment on above: Preop cardiovascular exam Start: 12-30-2024 Patient discharge [facility] Start: 12-28-2024 Referral to service [facility] Start: 12-27-2024 Referral to gastroenterology service [facility] Start: 12-27-2024 [facility] Start: 12-27-2024 Referral to service [facility] Start: 12-27-2024 Palliative care [facility] Start: 12-26-2024 Following clinical p athway protocol [facility] Start: 12-26-2024 Application of intermittent pneumatic compression device [facility] Start: 12-26-2024 Assessment of risk o f venous thromboembolism [facility] Start: 12-26-2024 Continuous pulse oximetry [facility] Start: 12-26-2024 Fall prevention [facility] Start: 12-26-2024 Inhalation therapy procedure [facility] Start: 12-26-2024 Insertion of cathete r into peripheral vein [facility] Start: 12-26-2024 Introduction of urin asher catheter [facility] Start: 12-26-2024 Measuring intake and output [facility] Start: 12-26-2024 Oxygen therapy [facility] Start: 12-26-2024 Physiotherapy of chest [facility] Start: 12-26-2024 Providing care accor ding to standard [facility] Start: 12-26-2024 Provision of activit y privileges [facility] Start: 12-26-2024 Referral to service [facility] Start: 12-26-2024 [facility] Start: 12-26-2024 Dual pressure sponta neous ventilation support [facility] Start: 12-26-2024 Gas panel - Arterial blood [facility] Start: 12-26-2024 Measurement of occul t blood in stool specimen using immunoassay [facility] Start: 12-26-2024 Verification routine [place] Start: 12-26-2024 Admission procedure [facility] Start: 12-26-2024 Hospital admission, emergency, from emergency room, medical nature [facility] Start: 12-26-2024 End: 12-26-2024 [facility] Start: 12-25-2024 COVID-19 Vaccine ( season) COVID-19 Vaccine ( season) [facility] Start: 12-25-2024 Influenza vaccination [facility] Start: 12-22-2024 Subsequent hospital visit by physician 12/22/2024 Hospital Encounter [facility] [address] [place] [id number] Zaria Shea MD [address] [place] [id number] [facility] Start: 12-15-2024 End: 12-15-2024 Patient encounter procedure [facility] Start: 11-28-2024 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 kristyn Disease Visit Annual PCP Team Chronic Disease Visit [facility] Start: 11-23-2024 End: 11-23-2024 ambulatory 11/23/2024 9:00 AM EDT [employer] [facility] [address] [place] [address] [address] [place] [address] Gregor Fernandez APRN.[facility] [address] [place] [id number] confirmed 11/21/24 [facility] [employer] [facility] Comment on above: [id number] confirmed 10/25 01/18 mp Start: 11-08-2024 End: 11-08-2024 ambulatory 11/08/2024 2:30 PM EDT [facility] [address] [place] [phone] Haylee Carter, GLASSINE MACHINE TENDER.ENGINE MECHANIC [address] [place] [phone] [employer] Comment on above: [id number] Start: 10-17-2024 End: 10-17-2024 Patient encounter procedure 10/17/2024 2:20 PM EDT Office Visit [facility] [place] [address] [place] [address] Yoseph Fall MD [address] [place], [place] [phone] Discharged 10/09/24 [facility] - COPD exacerbation Family [facility] Comment on above: Discharged 10/09/24 W - COPD exacerbation Start: 10-09-2024 Patient discharge [facility] Start: 10-06-2024 End: 10-06-2024 Referral to service [facility] Start: 10-04-2024 Referral for physica l therapy [facility] Start: 10-04-2024 Referral to occupati onal therapist [facility] Start: 10-04-2024 Referral to service [facility] Start: 10-03-2024 Care planning and pr oblem solving actions [facility] Start: 10-03-2024 [facility] Start: 10-02-2024 Care planning and pr oblem solving actions [facility] Start: 10-02-2024 Referral to senior administrative support [facility] Start: 10-02-2024 [facility] Start: 09-29-2024 Admission procedure [facility] Start: 09-29-2024 Following clinical p athway protocol [facility] Start: 09-29-2024 Assessment of risk o f venous thromboembolism [facility] Start: 09-29-2024 Inhalation therapy procedure [facility] Start: 09-29-2024 Insertion of cathete r into peripheral vein [facility] Start: 09-29-2024 Introduction of urin asher catheter [facility] Start: 09-29-2024 Measuring intake and output [facility] Start: 09-29-2024 Oxygen therapy [facility] Start: 09-29-2024 Providing care accor ding to standard [facility] Start: 09-29-2024 Provision of activit y privileges [facility] Start: 09-29-2024 Referral to service [facility] Start: 09-29-2024 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 kristyn Disease Visit Annual PCP Team Chronic Disease Visit [facility] Start: 07-12-2024 DIABETES SCREEN DIABETES SCREEN [facility] Start: 07-12-2024 Diabetes Screening Diabetes Screenin g [facility] Start: 07-06-2024 End: 07-06-2024 ambulatory 07/06/2024 2:00 PM EDT [facility] [address] [place] [address] Yoseph Fall MD [address] [facility] [address] 3 mo f/u - Phone visit Family [facility] Comment on above: 3 mo f/u - Phone vis it Start: 05-24-2024 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 kristyn Disease Visit Annual PCP Team Chronic Disease Visit [facility] Start: 04-26-2024 Advance Directive Discussion Advance Directive Discussion [facility] Start: 04-26-2024 Medicare Advantage A nnual Wellness Visit Medicare Advantage Annual Wellness Visit [facility] Start: 04-07-2024 End: 04-07-2024 Telephone follow-up 04/07/2024 8:40 AM EST [facility] [address] [facility] [place] [address] Yoseph Fall MD [address] [place] [address] phone call 4 month follow up [facility] [place] Comment on above: phone call 4 month f ollow up Start: 02-20-2024 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 kristyn Disease Visit Annual PCP Team Chronic Disease Visit [facility] Start: 02-20-2024 Diabetes mellitus screening Diabetes Screening [facility] Start: 02-09-2024 Lipid 1996 panel - S avelino or Plasma Lipid Screening [facility] Start: 02-09-2024 LIPID SCREEN LIPID SCREEN [facility] Start: 01-25-2024 Colorectal Cancer Screening Colorectal Cancer Screening [facility] Start: 01-25-2024 Fecal Occult Blood Fecal Occult Bloo d [facility] Start: 01-25-2024 Screening for malign ant neoplasm of colon [facility] Start: 12-26-2023 Covid-19 Vaccine () Covid-19 Vaccine () [facility] Start: 12-26-2023 Influenza vaccination Influenza Vacc ine (#1) [facility] Start: 11-29-2023 End: 11-29-2023 Telephone follow-up 11/29/2023 5:40 PM EDT [facility] [address] [place] [address] Yoseph Fall MD [address] [place] [address] phone call-3 month follow up Family Alistair Peoples Comment on above: phone call-3 month f ollow up Start: 11-23-2023 End: 11-23-2023 Telephone follow-up 11/23/2023 3:00 PM EDT [facility] [address] [place], [place] [id number] Yoseph Fall MD [address] [place] [address] phone call-3 month follow up Family Alistair Peoples Comment on above: phone call-3 month f ollow up Start: 11-14-2023 ANNUAL PCP TEAM FILM SOUND COORDINATOR KRISTYN DISEASE VISIT ANNUAL PCP TEAM CHRONIC DISEASE VISIT [facility] Start: 10-25-2023 DTaP/Tdap/Td Vaccine s (2 - Td or Tdap) DTaP/Tdap/Td Vaccines (2 - Td or Tdap) [facility] Start: 10-25-2023 Urine microalbumin profile [facility] Start: 08-08-2023 ANNUAL PCP TEAM FILM SOUND COORDINATOR KRISTYN DISEASE VISIT ANNUAL PCP TEAM CHRONIC DISEASE VISIT [facility] Start: 07-22-2023 Patient discharge [facility] Start: 07-21-2023 Respiratory microbia l culture Respiratory Culture [facility] Start: 07-20-2023 Thyroid stimulating hormone measurement [facility] Start: 07-20-2023 [facility] Start: 07-20-2023 Following clinical p athway protocol [facility] Start: 07-20-2023 Assessment of risk o f venous thromboembolism [facility] Start: 07-20-2023 Contact precautions [facility] Start: 07-20-2023 Incentive spirometry [place] Start: 07-20-2023 Insertion of cathete r into peripheral vein [facility] Start: 07-20-2023 Measuring intake and output [facility] Start: 07-20-2023 Oxygen therapy [facility] Start: 07-20-2023 Providing care accor ding to standard [facility] Start: 07-20-2023 Provision of activit y privileges [facility] Start: 07-20-2023 Referral to service [facility] Start: 07-20-2023 Respiratory secretio n precautions [facility] Start: 07-20-2023 Respiratory therapy [facility] Start: 07-20-2023 Tobacco use cessatio n education [facility] Start: 07-20-2023 [facility] Start: 07-20-2023 Verification routine [place] Start: 07-20-2023 Admission procedure [facility] Start: 07-20-2023 Patient referral to dietitian [facility] Start: 05-01-2023 ANNUAL PCP TEAM FILM SOUND COORDINATOR KRISTYN DISEASE VISIT ANNUAL PCP TEAM CHRONIC DISEASE VISIT [facility] Start: 04-26-2023 Advance Directive Discussion Advance Directive Discussion [facility] Start: 02-19-2023 End: 05-21-2023 CBC W Auto Differential panel - Blood [facility] Work Phone: Comment on above: Expected: 02/19/2023 , Expires: 05/21/2023 Start: 02-19-2023 End: 05-21-2023 Comprehensive metabolic 2000 panel - Serum or Plasma [facility] Work Phone: Comment on above: Expected: 02/19/2023 (Approximate), Expires: 05/21/2023 Start: 02-19-2023 End: 05-21-2023 Hemoglobin A1c in Blood [facility] Work Phone: Comment on above: Expected: 02/19/2023 , Expires: 05/21/2023 Start: 02-19-2023 End: 05-21-2023 LIPID PANEL, NONFASTING [facility] Work Phone: Comment on above: Expected: 02/19/2023 , Expires: 05/21/2023 Start: 02-19-2023 End: 05-21-2023 PAIN PANEL, UR QUANT [facility] Work Phone: Comment on above: Expected: 02/19/2023 , Expires: 05/21/2023 Start: 02-19-2023 End: 05-21-2023 TOX SCREEN ROUT UR [facility] Work Phone: Comment on above: Expected: 02/19/2023 , Expires: 05/21/2023 Start: 01-23-2023 ANNUAL PCP TEAM FILM SOUND COORDINATOR KRISTYN DISEASE VISIT ANNUAL PCP TEAM CHRONIC DISEASE VISIT [facility] Start: 12-25-2022 Covid-19 Vaccine ( season) Covid-19 Vaccine ( season) [facility] Start: 12-25-2022 Influenza vaccination [facility] Start: 10-17-2022 ANNUAL PCP TEAM FILM SOUND COORDINATOR KRISTYN DISEASE VISIT ANNUAL PCP TEAM CHRONIC DISEASE VISIT [facility] Start: 08-21-2022 COVID-19 VACCINE (5 - Moderna series) COVID-19 VACCINE (5 - Moderna series) [facility] Start: 07-17-2022 ANNUAL PCP TEAM FILM SOUND COORDINATOR KRISTYN DISEASE VISIT ANNUAL PCP TEAM CHRONIC DISEASE VISIT [facility] Start: 07-17-2022 BP CONTROLLED (<130/80) BP CONTROLLE D (<130/80) [facility] Start: 04-26-2022 ADVANCE DIRECTIVE DISCUSSION ADVANCE DIRECTIVE DISCUSSION [facility] Start: 12-25-2021 Influenza vaccination [facility] Start: 12-12-2021 COVID-19 VACCINE (4 - Booster for Moderna series) COVID-19 VACCINE (4 - Booster for Moderna series) [facility] Start: 10-06-2021 COVID-19 VACCINE (3 - Booster for Moderna series) COVID-19 VACCINE (3 - Booster for Moderna series) [facility] Start: 08-01-2021 End: 10-01-2021 LIPID PANEL BASIC LIPID PANEL BASIC Lab Routine Essential hypertension, benign Elevated glucose Expected: 08/01/2021, Expires: 10/01/2021 [facility] Work Phone: Comment on above: Expected: 08/01/2021 , Expires: 10/01/2021 Start: 07-03-2021 COVID-19 VACCINE (3 - Booster for Moderna series) COVID-19 VACCINE (3 - Booster for Moderna series) [facility] Start: 2020 BONE DENSITY BONE DENSITY [facility] Start: 2020 Bone Density Screening Bone Density Screening [facility] Start: 2020 Screening for osteoporosis Bone Dens ity Screening [facility] Start: 02-14-2020 COLORECTAL CANCER SCREENING COLORECTAL CANCER SCREENING [facility] Start: 02-14-2020 FECAL OCCULT BLOOD FECAL OCCULT BLOO D [facility] Start: 10-16-2016 Mammography [facility] Start: 10-16-2016 Screening for malign ant neoplasm of breast Mammogram Screening [facility] Start: 10-24-2015 PAP TESTING PAP TESTING [facility] Start: 10-24-2015 Screening for malign ant neoplasm of cervix [facility] Start: 2015 RSV Immunization for Adults (1 - Risk 60-74 years 1-dose series) RSV Immunization for Adults (1 - Risk 60-74 years 1-dose series) [facility] Start: 2015 RSV Vaccine (1 - 1-d ose 60+ series) RSV Vaccine (1 - 1-dose 60+ series) [facility] Start: 2015 RSV Vaccine (1 - Ris k 60-74 years 1-dose series) RSV Vaccine (1 - Risk 60-74 years 1-dose series) [facility] Start: 2005 SHINGRIX VACCINE (1 of 2) CASTANON GRIX VACCINE (1 of 2) [facility] Start: 2005 Zoster Vaccines (1 of 2) Zoste r Vaccines (1 of 2) [facility] Start: 2000 COLOGUARD (FIT-DNA) COLOGUARD (FIT-D NA) [facility] Start: 2000 Colonoscopy COLONOSCOPY [facility] Start: [address] COLONOGRAPHY [facility] Start: 2000 Screening for malign ant neoplasm of colon [facility] Start: 2000 SIGMOIDOSCOPY SIGMOIDOSCOPY [facility] Start: 1995 Screening for malign ant neoplasm of breast Mammogram [facility] Start: 1985 Zoledronic acid therapy ALPHA- 1 ANTITRYPSIN DEFICIENCY SCREENING [facility] Start: 1973 BP CONTROLLED (<130/80) BP CONTROLLE D (<130/80) [facility] Start: 1973 Diabetes mellitus screening Diabetes Screening [facility] Start: 1973 Hepatitis C screening Hepatitis C Sc reening [facility] Start: 1967 Depression Monitoring Depression Mon itoring [facility] Start: 1955 Screening for malign ant neoplasm of colon [facility] Start: 1955 Screening for osteoporosis Bone Dens ity Scan [facility] Alanine aminotransfe rase [Enzymatic activity/volume] in Serum or Plasma [facility] Albumin [Mass/volume ] in Serum or Plasma [facility] Alkaline phosphatase [Enzymatic activity/volume] in Serum or Plasma [facility] Anion gap in Serum o r Plasma [facility] Anion gap measurement [facility] Aspartate aminotrans ferase [Enzymatic activity/volume] in Serum or Plasma [facility] Bacteria identified in Sputum by Respiratory culture [facility] Bilirubin measuremen t, urine [facility] Bilirubin, total measurement [facility] BUN/Creatinine ratio [facility] BUN/Creatinine ratio [facility] Calcium [Mass/volume ] in Serum or Plasma [facility] Calcium [Mass/volume ] in Serum or Plasma [facility] Carbon dioxide, tota l [Moles/volume] in Central venous blood [facility] Carbon dioxide, tota l [Moles/volume] in Serum or Plasma [facility] Cardiac catheterizat ion study Cardiac procedure CV Cardiac Cath Routine Preop cardiovascular exam 01/05/2025 12:21 PM EDT [employer] Work Phone: Chloride [Moles/volu me] in Serum or Plasma [facility] COLOGUARD COLOGUARD Lab Ro utine Screening for colon cancer Ordered: 07/06/2024 [facility] Work Phone: Comment on above: Ordered: 07/06/2024 Creatinine [Mass/vol ume] in Serum or Plasma [facility] Creatinine [Moles/vo lume] in Serum or Plasma [facility] End: 06-15-2025 DBT Breast - bilateral screening MICKIE SCREENING W RASHAUN Radiology Routine Encounter for screening mammogram for breast cancer 1 Occurrences starting 05/16/2024 until 06/15/20[facility] [employer] Work Phone: Comment on above: 1 Occurrences starti ng 05/16/2024 until 06/15/2025 ECG 12 lead - CLINIC PERFORMED ECG 12 lead - CLINIC PERFORMED CV ECG Routine Preop cardiovascular exam 12/15/2024 2:38 PM EDT [employer] Work Phone: Erythrocyte mean corpuscular volume determination [facility] Erythrocyte mean corpuscular volume determination [facility] Ferritin [Mass/volum e] in Serum or Plasma [facility] Glucose [Mass/volume ] in Serum or Plasma [facility] Glucose [Mass/volume ] in Serum or Plasma [facility] Hematocrit [Volume Fraction] of Blood [facility] Hematocrit [Volume Fraction] of Blood [facility] Hemoglobin [Mass/vol ume] in Blood [facility] Hemoglobin [Mass/vol ume] in Blood [facility] Hemoglobin [Presence ] in Urine [facility] Iron [Mass/mass] in Unspecified specimen [facility] Iron saturation [Mas s Fraction] in Serum or Plasma [facility] LEFT AND RIGHT HEART CATH / CORONARY ANGIOGRAPHY LEFT AND RIGHT HEART CATH / CORONARY ANGIOGRAPHY Preop cardiovascular exam [facility] [employer] Leukocytes [#/volume ] in Blood [facility] Leukocytes [#/volume ] in Blood [facility] Magnesium [Mass/volu me] in Serum or Plasma [facility] Magnesium measurement [facility] Mean corpuscular hemoglobin concentration determination [facility] Mean corpuscular hemoglobin concentration determination [facility] Mean corpuscular hemoglobin determination [facility] Mean corpuscular hemoglobin determination [facility] Measurement of keton es in urine using dipstick [facility] Measurement of renal function [facility] Measurement of renal function [facility] End: 07-15-2024 MG Breast Screening MICKIE SCREENING Radiology Routine Encounter for screening mammogram for breast cancer 1 Occurrences starting 06/16/2023 until 07/15/2024 [facility] Work Phone: Comment on above: 1 Occurrences starti ng 06/16/2023 until 07/15/2024 Microscopic observat ion [Identifier] in Unspecified specimen by Gram stain [facility] Microscopic urinalysis [facility] Neutrophil count [facility] Neutrophil count [facility] Neutrophil percent differential count [facility] Neutrophil percent differential count [facility] End: 02-12-2023 OXIMETRY WITH AMBULATION OXIMETRY WITH AMBULATION PFT Routine Chronic obstructive pulmonary disease, unspecified COPD type (HCC) 1 Occurrences starting 01/13/2022 until 02/12/2023 [facility] Work Phone: Comment on above: 1 Occurrences starti ng 01/13/2022 until 02/12/[address] [facility] Work Phone: Patient referral [facility] Work Phone: pH of Urine [facility] Platelets [#/volume] in Blood [facility] Platelets [#/volume] in Blood [facility] Potassium [Moles/vol ume] in Serum or Plasma [facility] Potassium measurement [facility] Red blood cell count [facility] Red blood cell count [facility] Red cell distributio n width determination [facility] Red cell distributio n width determination [facility] Respiratory pathogen s DNA and RNA panel - Respiratory specimen by ASPEN with probe detection [facility] Serum chloride measurement [facility] Serum inorganic phos phate measurement [facility] Sodium [Moles/volume ] in Serum or Plasma [facility] Sodium measurement [facility] Specific gravity of Urine [place] Total iron binding capacity measurement [facility] Total protein measurement [place] TRANSCATHETER AORTIC VALVE REPLACEMENT (TAVR) TRANSCATHETER AORTIC VALVE REPLACEMENT (TAVR) Aortic valve stenosis, etiology of cardiac valve disease unspecified [facility] Troponin T.cardiac [Mass/volume] in Serum or Plasma by High sensitivity method [facility] Troponin T.cardiac [Mass/volume] in Serum or Plasma by High sensitivity method [facility] Urea nitrogen [Mass/volume] in Serum or Plasma [facility] Urea nitrogen [Mass/volume] in Serum or Plasma [facility] Urine blood test [facility] Urine dipstick for glucose [facility] Urine dipstick for leukocyte esterase [facility] Urine dipstick for nitrite [facility] Urine dipstick for protein [facility] Urine examination [facility] Urine microscopy: epithelial cells [facility] Urine Microscopy: wh ite cells [facility] Urobilinogen [Presen ce] in Urine [facility] Immunizations Immunization Date Immunization Notes Care Provider [facility] 02-19-2023 influenza (HD-IIV4) vaccine, age 65+ yr, high dose, quadrivalent, PF (FLUZONE HIGH-DOSE) Yoseph Fall MD Work Phone: [facility] 02-19-2023 influenza virus vacc ine, unspecified formulation Yoseph Fall MD Work Phone: [facility] 07-17-2021 pneumococcal polysaccharide vaccine, 23 valent Yoseph Fall MD Work Phone: [facility] 02-08-2019 influenza, injectabl e, quadrivalent, contains preservative Yoseph Fall MD Work Phone: [facility] 02-08-2019 influenza virus vacc ine, unspecified formulation Yoseph Fall MD Work Phone: [facility] 05-11-2018 influenza, injectabl e, quadrivalent, contains preservative Yoseph Fall MD Work Phone: [facility] 09-24-2017 pneumococcal conjuga te vaccine, 13 valent Yoseph Fall MD Work Phone: [facility] 02-25-2016 influenza, seasonal, injectable Yoseph Fall MD Work Phone: [facility] Work Phone: 10-24-2013 tetanus toxoid, redu ani diphtheria toxoid, and acellular pertussis vaccine, adsorbed Yoseph Fall MD Work Phone: [facility] 10-22-2013 tetanus toxoid, redu ani diphtheria toxoid, and acellular pertussis vaccine, adsorbed [facility] 03-13-2013 influenza virus vacc ine, unspecified formulation Yoseph Fall MD Work Phone: [facility] 03-09-2013 Influenza virus vaccine [facility] 03-09-2013 Dr. Yoseph camacho MD Work Phone: [facility] 03-21-2012 pneumococcal polysaccharide vaccine, 23 valent Yoseph Fall MD Work Phone: [facility] 03-21-2012 pneumococcal vaccine , unspecified formulation [facility] 03-17-2010 pneumococcal polysaccharide vaccine, 23 valent Yoseph Fall MD Work Phone: [facility] Work Phone: 03-03-2010 influenza virus vacc ine, unspecified formulation Yoseph Fall MD Work Phone: [facility] 02-10-2008 influenza virus vacc ine, unspecified formulation Yoseph Fall MD Work Phone: [facility] 03-22-2007 influenza virus vacc ine, unspecified formulation Yoseph Fall MD Work Phone: [facility] Work Phone: 04-14-2005 influenza virus vacc ine, unspecified formulation Yoseph Fall MD Work Phone: [facility] Work Phone: 04-13-2005 pneumococcal polysaccharide vaccine, 23 valent Yoseph Fall MD Work Phone: [facility] Work Phone: Payers Date Payer Category Payer Self-pay [id number] 2024 Unknown [id number] 2017 Medicaid [id number] 2017 Medicare [id number] 2017 Medicare [id number]. [id number] 2017 Medicare (Managed Care) [facility] [id number] 2017 Medicare HMO [id number]. [id number] 2015 Unknown [id number] Unknown [id number] 2.16840.1.957108.3.579.2. 462 Unknown [id number] 2.16840.1.124475.3.579.2. 462 Unknown [id number] 2.16.840.1.020118.3.579.2. 462 Unknown [id number] 2.16.840.1.340460.3.579.2. 462 Unknown [id number] 2.16.840.1.872391.3.579.2. 462 Unknown [id number] 2.16.840.1.275811.3.579.2. 462 Unknown [id number] 2.16.840.1.190035.3.579.2. 462 Unknown [id number] 2.16.840.1.518513.3.579.2. 462 Unknown [id number] 2.16.840.1.158739.3.579.2. 462 Unknown [id number] 2.16.840.1.826727.3.579.2. 462 Unknown [id number] 2.16.840.1.389190.3.579.2. 462 Unknown [id number] 2.16.840.1.451930.3.579.2. 462 Unknown [id number] 2.16.840.1.831273.3.579.2. 462 Unknown [id number] 2.16.840.1.866888.3.579.2. 462 Unknown [id number] 2.16.840.1.854355.3.579.2. 462 Unknown [id number] 2.16.840.1.143216.3.579.2. 462 Unknown [id number] 2.16.840.1.765013.3.579.2. 462 Unknown [id number] 2.16.840.1.245290.3.579.2. 462 Unknown [id number] 2.16.840.1.309147.3.579.2. 462 Unknown [id number] 2.16.840.1.585870.3.579.2. 462 Unknown [id number] 2.16.840.1.043653.3.579.2. 462 Unknown [id number] 2.16.840.1.600703.3.579.2. 462 Unknown [id number] 2.16.840.1.165695.3.579.2. 462 Unknown [id number] 2.16.840.1.325091.3.579.2. 462 Unknown [id number] 2.16.840.1.401123.3.579.2. 462 Unknown [id number] 2.16.840.1.913033.3.579.2. 462 Unknown [id number] 2.16840.1.469148.3.579.2. 462 Unknown [id number] 2.16840.1.417533.3.579.2. 462 Unknown [id number] 2.16840.1.099456.3.579.2. 462 Unknown [id number] 2.16840.1.763607.3.579.2. 462 Unknown [id number] 2.16840.1.328823.3.579.2. 462 Unknown [id number] 2.16840.1.667868.3.579.2. 462 Unknown [id number] 2.16840.1.746468.3.579.2. 462 Unknown [id number] 2.16840.1.708425.3.579.2. 462 Unknown [id number] 2.16.840.1.444681.3.579.2. 462 Unknown [id number] 2.16.840.1.341667.3.579.2. 462 Unknown [id number] 2.16.840.1.420169.3.579.2. 462 Unknown [id number] 2.16.840.1.811709.3.579.2. 462 Unknown [id number] 2.16840.1.976328.3.579.2. 462 Unknown [id number] 2.16.840.1.570414.3.579.2. 462 Unknown [id number] 2.16.840.1.030191.3.579.2. 462 Unknown [id number] 2.16.840.1.095441.3.579.2. 462 Unknown [id number] 2.16.840.1.452100.3.579.2. 462 Unknown [id number] 2.16.840.1.399639.3.579.2. 462 Unknown [id number] 2.16.840.1.027986.3.579.2. 462 Unknown [id number] 2.16.840.1.224314.3.579.2. 462 Unknown [id number] 2.16.840.1.519996.3.579.2. 462 Unknown [id number] 2.16.840.1.329585.3.579.2. 462 Unknown [id number] 2.16.840.1.747884.3.579.2. 462 Social History Date Type Detail Facility Start: 1969 End: 04-07-2024 Tobacco smoking status NHIS Smokes tobacco daily [facility] Work Phone: Start: 1969 History of tobacco use Cigarette Smo ker [facility] Work Phone: Start: 07-17-2021 End: 11-22-2024 Alcohol intake Current drinker of alcohol (finding) [facility] Start: 10-23-2014 History SDOH Alcohol Comment 12 drinks per week [facility] Start: 1955 Sex Assigned At Not on file [facility] Start: 07-07-2021 End: 10-17-2021 Exposure to SARS-CoV-2 (event) Not sure [facility] Start: 12-07-2019 End: 11-13-2022 Cigarettes smoked current (pack per day) - Reported 1 [facility] Start: 12-07-2019 End: 10-17-2024 Tobacco use and exposure Smokeless tobacco non-user [facility] Start: 08-07-2022 End: 11-13-2022 Tobacco use panel [facility] Start: 03-27-2012 Adult Depression Screening Assessment 0 [facility] Start: 07-20-2023 End: 07-20-2023 Tobacco smoking status NHIS Unknown if ever smoked [facility] Start: 07-20-[address] [facility] Start: 07-20-[address] [facility] Start: 09-23-2014 Spouse/ Signif icant Other [facility] Start: 07-20-[address] [facility] Start: 1955 Sex Assigned At Female [facility] Start: 09-29-2024 End: 01-27-2025 Tobacco smoking status NHIS Ex-smoker (finding) [facility] Start: 1969 History of tobacco use Current smoke r [facility] Start: 12-15-2024 Alcoholic beverage intake Ex-drinker (finding) [employer] Start: 11-22-2024 Sex Female (finding) [employer] Within the last year , have you been afraid of your partner or ex-partner? No [employer] Health Goals Date Patient Goal Desired Activity /State Personal health goal Functional Status Date Assessment Result Facility 01-31-[address] [facility] Work Phone: 01-25-2025 Functional status Unable to Assess [facility] Work Phone: 12-30-[address] [facility] Work Phone: 12-29-[address] [facility] Work Phone: 12-27-2024 Functional status Bedside Commod e;Stand and pivot [facility] Work Phone: 10-09-[address] [facility] Work Phone: 07-22-[address] [facility] Work Phone: 06-29-2016 Are you deaf, or do you have serious difficulty hearing No 06/29/2016 3:38 PM Nancy Payne RN No [facility] 06-29-2016 Are you blind, or do you have serious difficulty seeing, even when wearing glasses No 06/29/2016 3:38 PM Nancy Payne RN No [facility] 06-29-2016 Do you have serious difficulty walking or climbing stairs Yes 06/29/2016 3:38 PM Nancy Payne RN Yes [facility] 06-29-2016 Do you have difficul ty dressing or bathing No 06/29/2016 3:38 PM Nancy Payne RN No [facility] 06-29-2016 Because of a physica l, mental, or emotional condition, do you have difficulty doing errands alone such as visiting a physician's office or shopping Yes 06/29/2016 3:38 PM Nancy Payne RN Yes [facility] Mental Status Date Assessment Result Facility 01-31-2025 Cognitive function Voice/Name [facility] Work Phone: 01-25-2025 Cognitive function Touch/Shaking [facility] Work Phone: 12-30-2024 Cognitive function Voice/Name [facility] Work Phone: 12-27-2024 Cognitive function Voice/Name [facility] Work Phone: 10-09-2024 Cognitive function Voice/Name [facility] Work Phone: 07-22-2023 Cognitive function Voice/Name [facility] Work Phone: 06-29-2016 Because of a physica l, mental, or emotional condition, do you have serious difficulty concentrating, remembering, or making decisions No 06/29/2016 3:38 PM Nancy Payne RN No [facility] Clinical Notes 06-30-2016 to 01-31-2025 Note Date & Type Note Facility 01-31-2025 Discharge summary Note Date/Time January 31, 2025 4:15pm [facility] Medical Records Department [address] [place] [address] Discharge Summary 01/31/25 1508 MR#: [id number] Acct: [id number] Name: DENIA GONZALEZ Rep #:[id number] : 1955 69 From: Debby Gu MD PCP: Dr. Yoseph Fall MD Status:AD M IN Location: [facility] [id number] Providers Date of Admission: 01/25/25 Date of Discharge: 01/31/25 Primary Care Physician: Dr. Yoseph Fall MD Consultations 01/25/25 12:26 Consult: Hogshead Weigher / Pulmonary Medicine Routine Consulting Provider: Pulmonary Medicine [facility] Reason for Consult: intubation, on vent EMERGENT [...] mg PO BID 01/25/25 OXYGEN - Supplemental ([facility] INFORMATIONAL USE ONLY) hypoxia 01/27/25 alprazolam 0.25 [...] stenosis being worked up for TAVR in [place], COPD with chronic hypoxic respiratory failure on 3 L home O2, anxiety, GERD, restless leg syndrome, A-fib presented to [facility] ED 01/25/25 for worsening shortness of breath [...] 71.2 H, Lymph % (Auto) 16.1 L, Lee % (Auto) 11.7 H, Eos % (Auto) [...] administer with a meal/food OXYGEN - Supplemental (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 Yoseph Fall MD; Dr. Debby Gu MD~ Signed [facility] Work Phone: 1([phone] 852-252710-08-2025 Consult note Author Amanda Taylor [facility] Note Date/Time January 31, 2025 8: 15pm [facility] Medical Records Department [address] [place] [address] Counseling Note - Pharmacy 01/31/25 1539 MR#: [id number] Acct: [id number] Name: DENIA GONZALEZ Rep #:[id number] : 1955 69 From: Amanda Taylor PCP: Dr. Yoseph Fall MD Status:AD M IN Y Location: [place] [id number] [place] Med Reconciliation Pharmacy Service has performed discharge [...] mg PO BID 01/25/25 OXYGEN - Supplemental ([facility] [place] INFORMATIONAL USE ONLY) hypoxia 01/27/25 alprazolam 0.25 mg tablet 0.25 mg PO Q6H PRN PRN Anxiety 3 days #12 tabs 01/31/25 levofloxacin 750 mg tablet 750 mg PO DAILY 4 days #4 tabs 01/31/25 potassium chloride 10 mEq tablet,extended release(part/cryst) 10 meq PO DAILYCM 30 days #0 tabs 01/31/25 prednisone 20 mg tablet See Taper PO BREAKFAST #32 tabs 01/31/25 01/31/25 0739 <Electronically signed by Amanda Taylor> Date _ [facility] Signature (if applicable): Date CC: ~ Signed [facility] Work Phone: [phone]) 692-370410-08-2025 Discharge summary Author Debby Gu [facility] Note Date/Time January 31, 2025 3: 08pm [facility] Medical Records Department [address] [place] [address] Transfer to [facility] Care MR#: [id number] Acct: [id number] Name: DENIA GONZALEZ Rep #:[id number] : 1955 69 From: Debby Gu MD PCP: Dr. Yoseph Fall MD Status:AD M IN Certification of patient admission REQUIRED AT TIME OF ADMISSION. I CERTIFY THAT POST-HOSPITAL ECF SERVICES ARE REQUIRED TO BE GIVEN ON AN IN-PATIENT BASIS BECAUSE OF THE ABOVE NAMED PATIENT'S NEED FOR INTERMEDIATE CARE ON A CONTINUING BASIS FOR THE CONDITION(S) FOR WHICH HE/SHE WAS RECEIVING IN-PATIENT HOSPITAL SERVICES PRIOR TO HIS/HER TRANSFER TO THE [facility]. 01/31/25 1508<Electronically signed by Debby Gu MD> Diet Diet Order/Speech Therapy: INPATIENT Hospital Diet / Speech Therapy Order(s) 01/29/25 14:08 Diet: Regular - General Food consistency:: Easy to Chew Liquid Consistency:: [place]/Mildly Thick Speech Therapy Comments: Direct sup for [...] stenosis being worked up for TAVR in [place], COPD with chronic hypoxic respiratory failure on 3 L home O2, anxiety, GERD, restless leg syndrome, A-fib presented to [facility] ED 01/25/25 for worsening shortness of breath [...] rec liberal Regular BUNNY - consistency per FEATURES REPORTER Will continue to follow and monitor for [...] administer with a meal/food OXYGEN - Supplemental (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 prednisone 10 MG tablet 15 mg PO QODAY PRN (Reason: [employer]ARE [employer]) Patient Comments: steroid for inflammation Referrals / Follow Up: Yoseph Fall MD [Primary Care Provider, [facility]] - Within 1 Week Disposition Disposition (needs filled in before D/C Order can be placed): Residential Facility (4) Afib Qualifiers: Atrial fibrillation type: paroxysmal Qualified Code(s): I48.0 - Paroxysmal atrial fibrillation (5) Aortic valve stenosis Qualifiers: Cardiac valve disease etiology: nonrheumatic Qualified Code(s): I35.0 - Nonrheumatic aortic (valve) stenosis 01/31/25 1508 <Electronically signed by Debby Gu MD> Cosigner Signature (if applicable): CC: Dr. Yoseph Fall MD; Dr. Alessandro Palma MD ~ [facility] Work Phone: 1(316) 913-782810-08-2025 [facility]10-08-2025 Progress note Author Elma Mendez [facility] Note Date/Time January 30, 2025 10 :28pm [facility] Medical Records Department [address] [place] [address] Progress Note - Hospitalist 01/30/252225 MR#: [id number] Acct: [id number] Name: DENIA GONZALEZ Rep #:[id number] : 1955 69 From: Elma Ratliff PCP: Dr. Yoseph Fall MD Status:AD M IN Location: [place] [address] Hospitalist Note Pt asking for Imodium due to frequent loose stools. Stool studies have not been performed,these are necessary prior to prescribing loperamide. However, she may start psyllium PO now and continue twice daily to absorb water from colon. 01/30/252227 <Electronically signed by Elma WATTS> Cosigner Signature (if applicable): CC: ~ Signed [facility] Work Phone: [phone]) 373-855310-07-2025 Progress note Author Debby Gu [facility] Note Date/Time January 30, 2025 2: 37pm [facility] Medical Records Department [address] [place] [address] Progress Note - Hospitalist 01/30/25 1425 MR#: [id number] Acct: [id number] Name: DENIA GONZALEZ Rep #:[id number] : 1955 69 From: Debby Gu MD PCP: Dr. Yoseph Fall MD Status:AD M IN Location: [place] [address] Reason for Visit Chief Complaint: Progressive worsening [...] (Auto) 87.0 H, Lymph % (Auto) 7.3L, Lee % (Auto) 4.7, Eos % (Auto) 0.0, [...] stenosis being worked up for TAVR in [place], COPD with chronic hypoxic respiratory failure on 3 L home O2, anxiety, GERD, restless leg syndrome, A-fib presented to [facility] ED 02/17 for worsening shortness of breath [...] Pseudomonas - Continue antibiotics, Solu-Medrol, nebs - Hogshead Weigher on consult -01/28: Status post extubation, growing [...] stenosis - Reportedly being worked up in [place] for TAVR - Had heart cath several [...] will need to follow-up on discharge in [place] for her TAVR evaluation -01/29: Tolerated additional [...] home medications, Xanax as needed started by segment block layer over the weekend, patient reports she is [...] Gu MD Charges/Coding Visit Charges Inpatient E&M: 59426 Subs Hosp L2 01/30/25 1437 <Electronically signed by Debby Gu MD> Cosigner Signature (if applicable): CC: ~ Signed [facility] Work Phone: [phone]) [phone] Procedure [facility] 01-29-2025 Progress note Author Debby Gu [facility] Note Date/Time January 29, 2025 9: 33am [facility] Medical Records Department [address] [place] [address] Progress Note - Hospitalist 01/29/25 0743 MR#: [id number] Acct: [id number] Name: DENIA GONZALEZ Rep #:[id number] : 1955 69 From: Debby Gu MD [...] (Auto) 91.2 H, Lymph % (Auto) 5.0L, Lee % (Auto) 3.1, Eos % (Auto) 0.0, [...] stenosis being worked up for TAVR in [place], COPD with chronic hypoxic respiratory failure on 3 L home O2, anxiety, GERD, restless leg syndrome, A-fib presented to [facility] ED 02/17 for worsening shortness of breath [...] Pseudomonas - Continue antibiotics, Solu-Medrol, nebs - Hogshead Weigher on consult -01/28: Status post extubation, growing [...] stenosis - Reportedly being worked up in [place] for TAVR - Had heart cath several [...] will need to follow-up on discharge in [place] for her TAVR evaluation -01/29: Tolerated additional Lasix yesterday, presently balance is -2800 #Depression/anxiety -01/28: Patient's home anxiety and depression medications resumed -01/29: Doing better back on home medications, Xanax as needed started by segment block layer over the weekend, patient reports she is getting set up with outpatient palliative care to discuss being prescribed this long-term for her anxiety Chronic medical problems and/or problems not being actively addressed during today's encounter: #GERD -Continue PPI # Restless leg syndrome -continue patient's home medication regimen #DVT ppx: SCDs Debby Gu MD Charges/Coding Visit Charges Inpatient E&M: 68992 Subs Hosp L2 01/29/25 0933 <Electronically signed by Debby Gu MD> Cosigner Signature (if applicable): CC: ~ Signed [facility] Work Phone: [phone] 374-801110-06-2025 Progress note Author Andriy Guzmán [facility] Note Date/Time January 29, 2025 7: 55am [facility] Medical Records Department [address] [place] [address] Progress Note - Hogshead Weigher 01/29/25 0652 MR#: [id number] Acct: [id number] Name: DENIA GONZALEZ Rep #:[id number] : 1955 69 From: Andriy Guzmán DO [...] being worked up for a TAVR in [place]. In addition, she has a known extensive [...] possible TAVR. This note was generated with [employer] dictation software. It may contain incorrectwords, spelling, [...] (Auto) 91.2 H, Lymph % (Auto) 5.0L, Lee % (Auto) 3.1, Eos % (Auto) 0.0, [...] CHRONIC CHANGES. NO ACUTE FINDINGS. Reading Location: [id number] Chest CTA 01/25/25 08:51 IMPRESSION: No demonstrated [...] cysts, no specific follow-up needed Reading Location: [facility] Chest X-Ray 01/25/25 09:00 IMPRESSION: Tubes and lines in position. There are interstitial infiltrates throughout the right mid and lower lung and left lingular segment. There are trace bilateral effusions. Reading [facility] Rhythm Strip Rhythm Strip: Sinus Tach Rate: [...] flat affect Charges/Coding Visit Charges Inpatient E&M: 14307 Subs Hosp L2 01/29/25 1227 <Electronically signed by Andriy Guzmán DO> Cosigner Signature (if applicable): CC: ~ Signed [facility] Work Phone: [phone] 446-595710-05-2025 Progress note Author Debby Gu [facility] Note Date/Time January 28, 2025 9: 44am [facility] Medical Records Department [address] [place] [address] Progress Note - Hospitalist 01/28/25714 MR#: [id number] Acct: [id number] Name: DENIA GONZALEZ Rep #:[id number] : 1955 69 From: Debby Gu MD [...] (Auto) 89.8 H, Lymph % (Auto) 4.4L, Lee % (Auto) 5.3, Eos % (Auto) 0.0, [...] (Auto) 88.6 H, Lymph % (Auto) 4.8L, Lee % (Auto) 6.0, Eos % (Auto) 0.0, [...] stenosis being worked up for TAVR in [place], COPD with chronic hypoxic respiratory failure on 3 L home O2, anxiety, GERD, restless leg syndrome, A-fib presented to [facility] ED 02/17 for worsening shortness of breath [...] Pseudomonas - Continue antibiotics, Solu-Medrol, nebs - Hogshead Weigher on consult -01/28: Status post extubation, growing [...] stenosis - Reportedly being worked up in [place] for TAVR - Had heart cath several [...] will need to follow-up on discharge in [place] for her TAVR evaluation #Depression/anxiety -01/28: Patient's home anxiety and depression medications resumed Chronic medical problems and/or problems not being actively addressed during today's encounter: #GERD -Continue PPI # Restless leg syndrome -continue patient's home medication regimen #DVT ppx: SCDs Debby Gu MD Charges/Coding Visit Charges Inpatient E&M: 92059 Subs Hosp L2 01/28/25 0981 <Electronically signed by Debby Gu MD> Cosigner Signature (if applicable): CC: ~ Signed [facility] Work Phone: [phone] Progress note Author Austin Pathak [facility] Note Date/Time January 28, 2025 9: 26am [facility] Medical Records Department [address] [place] [address] Progress Note - Hogshead Weigher 01/28/25 0853 MR#: [id number] Acct: [id number] Name: DENIA GONZALEZ Rep #:[id number] : 1955 69 From: Austin Pathak MD [...] 3 Ml Ampul.Neb INHALATION 3 ml Q4H.RT [facility] Administration Apixaban 5 mg 01/25/25 22:00 01/25/25 20:59 Apixaban 5 Mg Tablet PO 5 mg On Hold: 01/26/25 00:29 BID [facility] Administration Carvedilol 3.125 mg 01/28/25 08:00 [facility] 3.[facility] Protocol Chlorhexidine Gluconate 1 each 01/27/25 10:00 01/27/25 20:10 Chlorhexidine Gluc 2% Cloth 1 Each Towelette TOPICAL 1 each DAILY [facility] Administration Dronedarone 400 mg 01/25/25 17:00 01/27/25 16:39 Dronedarone Hydrochloride 400 Mg Tablet PO Not [facility] Guaifenesin 600 mg 01/28/25 10:00 Guaifenesin 600 Mg Tablet PO BID [facility] Piperacillin Sod/Tazobactam 50 mls @ 12.5 mls/hr 01/25/25 11:00 01/28/25 04:44 Sod 3.375 gm/ Sodium Chloride IV 12.5 mls/hr Q8 [facility] Administration Sodium Chloride 250 mls @ 15 mls/hr 01/25/25 11:51 01/26/25 08:00 IV 0 mls/hr .[id number] PRN Infusion Saline Flush Sodium Chloride 250 mls @ 15 mls/hr 01/25/25 11:51 IV .[id number] PRN Additional IVPB Infusion Pantoprazole Sodium 40 [...] (Auto) 88.6 H, Lymph % (Auto) 4.8L, Lee % (Auto) 6.0, Eos % (Auto) 0.0, [...] Cosigner Signature (if applicable): CC: ~ Signed [facility] Work Phone: [phone] 856-516810-04-2025 Progress note Author Debby Gu [facility] Note Date/Time January 27, 2025 10 :22am [facility] Medical Records Department [address] [place] [address] Progress Note - Hospitalist 01/27/25 0743 MR#: [id number] Acct: [id number] Name: DENIA GONZALEZ Rep #:[id number] : 1955 69 From: Debby Gu MD [...] directed back towards the epigastrium. Reading Location: [id number] Echocardiogram 01/26/25 08:59 Interpretation Summary Severe aortic stenosis. The estimated ejection fraction is 70 %. Ordering Physician: Alessandro Palma Referring Physician: Yoseph Fall Performed By: Lizzette Middleton, RDCS, RVT X-Ray 01/26/25 09:28 IMPRESSION: Repositioned and satisfactory located NG tube. Reading Location: [id number] Chest X-Ray 10/04/25 03:05 IMPRESSION: Endotracheal tube is in good position. Enteric feeding tube is in good position with its tip extending below the level of the left hemidiaphragm. Unchanged emphysema. Interval appearance of bilateral basilar atelectatic pulmonary changes. Reading Location: [place] [address] Rhythm Strip Rhythm Strip: Sinus Tach Rate: [...] stenosis being worked up for TAVR in [place], COPD with chronic hypoxic respiratory failure on 3 L home O2, anxiety, GERD, restless leg syndrome, A-fib presented to [facility] ED 02/17 for worsening shortness of breath [...] Pseudomonas - Continue antibiotics, Solu-Medrol, nebs - Hogshead Weigher on consult # Hemoptysis and anemia -Blood [...] stenosis - Reportedly being worked up in [place] for TAVR - Had heart cath several [...] Gu MD Charges/Coding Visit Charges Inpatient E&M: 82652 Subs Hosp L2 01/27/25 1022 <Electronically signed by Debby Gu MD> Cosigner Signature (if applicable): CC: ~ Signed [facility] Work Phone: [phone] Progress note Author Austin Pathak [facility] Note Date/Time January 27, 2025 9: 38am [facility] Medical Records Department [address] [place] [address] Progress Note - Hogshead Weigher 01/27/25 0850 MR#: [id number] Acct: [id number] Name: DENIA GONZALEZ Rep #:[id number] : 1955 69 From: Austin Pathak MD [...] Carvedilol 6.25 Mg Tablet PO [facility] Protocol Chlorhexidine Gluconate 15 ml 01/26/25 22:00 01/27/25 08:11 Chlorhexidine 15 Ml PO 15 ml BID [facility] Administration Chlorhexidine Gluconate 1 each 01/27/25 10:00 Chlorhexidine Gluc 2% Cloth 1 Each Towelette TOPICAL DAILY [facility] Dronedarone 400 mg 01/25/25 17:00 01/27/25 08:11 Dronedarone Hydrochloride 400 Mg Tablet PO [facility] Administration Fentanyl Citrate 50 mcg 01/25/25 08:45 [...] 01/25/25 11:51 01/26/25 08:00 IV 0 mls/hr .[id number] PRN Infusion Saline Flush Sodium Chloride 250 mls @ 15 mls/hr 01/25/25 11:51 IV .[id number] PRN Additional IVPB Infusion Fentanyl 100 mls [...] (Auto) 89.8 H, Lymph % (Auto) 4.4L, Lee % (Auto) 5.3, Eos % (Auto) 0.0, [...] and satisfactory located NG tube. Reading Location: [id number] Chest X-Ray 01/27/25 03:05 IMPRESSION: Endotracheal tube is in good position. Enteric feeding tube is in good position with its tip extending below the level of the left hemidiaphragm. Unchanged emphysema. Interval appearance of bilateral basilar atelectatic pulmonary changes. Reading Location[facility] Assessment and Plan . Assessment and [...] Cosigner Signature (if applicable): CC: ~ Signed [facility] Work Phone: [phone] 558-883510-04-2025 Radiology Diagnostic study [facility]10-03-2025 Progress note Author Alessandro Palma [facility] Note Date/Time January 26, 2025 3: 17pm [facility] Medical Records Department [address] [place] [address] Progress Note - Hospitalist 01/26/25 0816 MR#: [id number] Acct: [id number] Name: DENIA GONZALEZ Rep #:[id number] : 1955 69 From: Alessandro Liu PCP: [...] 74.3 H, Lymph % (Auto) 12.5 L, Lee % (Auto) 11.0 H, Eos % (Auto) [...] Sl. Cloudy, Urine pH 6.0, Ur Specific [place] 1.025, Urine Protein 500 H, Urine Glucose [...] (Auto) 90.9 H, Lymph % (Auto) 4.4L, Lee % (Auto) 4.2, Eos % (Auto) 0.0, [...] (Auto) 91.5 H, Lymph % (Auto) 3.3L, Lee % (Auto) 4.6, Eos % (Auto) 0.0, [...] CHRONIC CHANGES. NO ACUTE FINDINGS. Reading Location: [facility] Chest CTA 01/25/25 08:51 IMPRESSION: No demonstrated [...] cysts, no specific follow-up needed Reading Location: [facility] Chest X-Ray 01/25/25 09:00 IMPRESSION: Tubes and lines in position. There are interstitial infiltrates throughout the right mid and lower lung and left lingular segment. There are trace bilateral effusions. Reading Location: [facility] Rhythm Strip Rhythm Strip: Sinus Tach [...] AC mode 40% FiO2/400 mL/5 PEEP.. Sedated. Hogshead Weigher consulted. On baseline 3 L of oxygen [...] IV bolus was given. Limited echo ordered. Sales Property Manager consulted for severeaortic stenosis. 4. Atypical chest [...] Sl. Cloudy, Urine pH 6.0, Ur Specific [place] 1.025, Urine Protein 500 H, Urine Glucose [...] (Auto) 90.9 H, Lymph % (Auto) 4.4L, Lee % (Auto) 4.2, Eos % (Auto) 0.0, [...] (Auto) 91.5 H, Lymph % (Auto) 3.3L, Lee % (Auto) 4.6, Eos % (Auto) 0.0, [...] Location: [facility] Charges/Coding Visit Charges Inpatient E&M: 45870 Subs Hosp L3 01/26/25 0904 <Electronically signed [...] Cosigner Signature (if applicable): cc: ~* Signed [facility] Work Phone: 1(954) 661-801310-03-2025 Consult note Author Amy Keenan [facility] Note Date/Time January 26, 2025 3: 09pm [facility] Medical Records Department [address] [place] [address] Consultation - Cardiology 01/26/25 1458 MR#: [id number] Acct: [id number] Name: DENIA GONZALEZ Rep #:[id number] : 1955 69 From: Amy good MD [...] and is being evaluated for TAVR at [facility]. She has history of chronic respiratory [...] currently on antibiotics for possible pneumonia aswell. [facility] Medical History Palliative care encounter Acute anemia [...] bilateral edema Charges/Coding Visit Charges Inpatient E&M: 06500 Init Hosp L2 Objective Data Vital Signs: [...] Sl. Cloudy, Urine pH 6.0, Ur Specific Drexel 1.025, Urine Protein 500 H, Urine Glucose [...] (Auto) 90.9 H, Lymph % (Auto) 4.4L, Lee % (Auto) 4.2, Eos % (Auto) 0.0, [...] (Auto) 91.5 H, Lymph % (Auto) 3.3L, Lee % (Auto) 4.6, Eos % (Auto) 0.0, [...] Sl. Cloudy, Urine pH 6.0, Ur Specific Drexel 1.025, Urine Protein 500 H, Urine Glucose [...] 90.9 H, Lymph % (Auto) 4.4 L, Lee % (Auto) 4.2, Eos % (Auto) 0.0, Baso %(Auto) 0.1, Absolute Neuts (auto) 6.2, Nucleated RBC % 0 01/26/25 03:25: WBC 8.2, RBC 3.08 L, Hgb 7.4 L, Hct 23.7 L, MCV 76.9 L, MCH 24.0L, MCHC 31.2 L, Plt Count 240, MPV 10.9, Immature Gran % (Auto) 0.500, Neut % (Auto) 91.5 H, Lymph % (Auto) 3.3 L, Lee % (Auto) 4.6, Eos % (Auto) 0.0, [...] directed back towards the epigastrium. Reading Location: [id number] X-Ray 01/26/25 09:28 IMPRESSION: Repositioned and satisfactory located NG tube. Reading Location: [facility] Risk Score for UA/STEMI Assesmment (YES = 1) Risk Stratification Applicable: No 01/26/25 1509 <Electronically signed by Amy Keenan MD> Cosigner Signature (if applicable): CC: Dr. Yoseph Fall MD~ Signed [facility] Work Phone: 1(315) 912-749610-03-2025 Progress note Author Andriy Guzmán [facility] Note Date/Time January 26, 2025 9: 59am [facility] Medical Records Department [address] [place] [address] Progress Note - Hogshead Weigher 01/26/25 0724 MR#: [id number] Acct: [id number] Name: DENIA GONZALEZ Rep #:[id number] : 1955 69 From: Andriy Guzmán DO [...] being worked up for a TAVR in [place]. In addition, she has a known extensive [...] 74.3 H, Lymph % (Auto) 12.5 L, Lee % (Auto) 11.0 H, Eos % (Auto) [...] Sl. Cloudy, Urine pH 6.0, Ur Specific Drexel 1.025, Urine Protein 500 H, Urine Glucose [...] (Auto) 90.9 H, Lymph % (Auto) 4.4L, Lee % (Auto) 4.2, Eos % (Auto) 0.0, [...] (Auto) 91.5 H, Lymph % (Auto) 3.3L, Lee % (Auto) 4.6, Eos % (Auto) 0.0, [...] CHRONIC CHANGES. NO ACUTE FINDINGS. Reading Location: [facility] Chest CTA 01/25/25 08:51 IMPRESSION: No demonstrated [...] cysts, no specific follow-up needed Reading Location: [id number] Chest X-Ray 01/25/25 09:00 IMPRESSION: Tubes and lines in position. There are interstitial infiltrates throughout the right mid and lower lung and left lingular segment. There are trace bilateral effusions. Reading [facility] Rhythm Strip Rhythm Strip: Sinus Tach [...] sedated on vent Charges/Coding Procedures Hospitalists Procedures: 65322 Critical Care 1st Hr 01/26/25 0959 <Electronically signed by Andriy Guzmán DO> Cosigner Signature (if applicable): CC: ~ Signed [facility] Work Phone: 1(200) 374-866910-03-2025 Radiology Diagnostic study [facility]10-03-2025 Radiology Diagnostic study [facility]10-03-2025 Progress note Author Dionne Porter [facility] Note Date/Time January 26, 2025 1: 48am [facility] Medical Records Department [address] [place] [address] Progress Note - Hospitalist 01/26/2529 MR#: [id number] Acct: [id number] Name: DENIA GONZALEZ Rep #:[id number] : 1955 69 From: Dionne Porter MD [...] on 01/26/25 at 0106 Addendum Spoke with OPEN HEARTH FURNACE OPERATOR HELPERstaff registered nurse to delay CT until diuresis. Now they [...] Cosigner Signature (if applicable): cc: ~* Signed [facility] Work Phone: 1(332) 894-216010-02-2025 History and physical note Author Alessandro Palma [facility] Note Date/Time January 25, 2025 4: 43pm [facility] Medical Records Department [address] [place] [address] H&P Exam - Hospitalist 01/25/25 1004 MR#: [id number] Acct: [id number] Name: DENIA GONZALEZ Rep #:[id number] : 1955 69 From: Alessandro Liu PCP: [...] is being worked up for TAVR in [place]. She was working hard on her breathing and oxygen was turned for later. Patient was more irritable during transport and then he stopped verbalizing few blocks away from the hospital. Social history: She has 30 pack years of smoking. Reported quit recently by . Significant anxiety and panic attack. [facility] Medical History Palliative care encounter Acute anemia [...] 74.3 H, Lymph % (Auto) 12.5 L, Lee % (Auto) 11.0 H, Eos % (Auto) [...] AC mode 40% FiO2/400 mL/5 PEEP.. Sedated. Hogshead Weigher consulted. On baseline 3 L of oxygen [...] 74.3 H, Lymph % (Auto) 12.5 L, Lee % (Auto) 11.0 H, Eos % (Auto) [...] Location: [facility] Charges/Coding Visit Charges Inpatient E&M: 20230 Init Hosp L3 Procedures Hospitalists Procedures: 92797 Advncd Care Plan 30 Min 01/25/25 1643 <Electronically signed by Alessandro Palma MD> Cosigner Signature (if applicable): CC: Dr. Yoseph Fall MD; Dr. Alessandro Palma MD~ Signed [facility] Work Phone: 1(635) 667-587310-02-2025 Consult note Author Andriy Guzmán [facility] Note Date/Time January 25, 2025 12 :55pm [facility] Medical Records Department [address] [place] [address] Consultation - Hogshead Weigher 01/25/25 1147 MR#: [id number] Acct: [id number] Name: DENIA GONZALEZ Rep #:[id number] : 1955 69 From: Andriy Guzmán DO [...] being worked up for a TAVR in [place]. In addition, she has a known extensive [...] currently in remission. She has an approximate 79-ehxi-lnyb smoking history, but reportedly quit recently. Although she has a reported history of COPD, she has never been evaluated by a advanced clinical specialist, nor has she ever had formal pulmonary function studies completed. He did report that the patient has significant anxiety and experiences frequent panic attacks. In addition, the patient is currently beingworked up for a TAVR in [place] due to a history of severe aortic [...] medical intensive care unit for further management. [facility] Medical History Palliative care encounter Acute anemia [...] 74.3 H, Lymph % (Auto) 12.5 L, Lee % (Auto) 11.0 H, Eos % (Auto) [...] CHRONIC CHANGES. NO ACUTE FINDINGS. Reading Location: [id number] Chest CTA 01/25/25 08:51 IMPRESSION: No demonstrated [...] Reading Location: [facility] Charges/Coding Procedures Hospitalists Procedures: 11987 Critical Care 1st Hr 01/25/25 1255 <Electronically signed by Andriy Guzmán DO> Cosigner Signature (if applicable): CC: Dr. Yoseph Fall MD~ Signed [facility] Work Phone: 1([phone]) 230-771410-02-2025 Discharge summary Author [facility] Note Date/Time January 25, 2025 10 :35am [facility] Medical Records Department [address] [place] [address] Emergency Department Summary 01/25/25 MR#: [id number] Acct: [id number] Name: DENIA GONZALEZ Rep #:[id number] : 1955 69 From: Mercy Lamas PCP: [...] a heart cath 3 weeks ago at [facility]. He is not sure if she is still on her Eliquis or not. No other information obtained at this time. He understand that she will need admission to the ICU. [facility] Medical History Palliative care encounter [...] heater probe. She is following up with [facility] for her severe concentric left ventricular hypertrophy [...] Dr. Palma. Also discussed the case with segment block layer. While in the ICU patient's does develop [...] 74.3 H Lymph % (Auto) 12.5 L Lee % (Auto) 11.0 H Eos % (Auto) [...] CHRONIC CHANGES. NO ACUTE FINDINGS. Reading Location: [facility] Chest CTA 01/25/25 08:51 IMPRESSION: No demonstrated [...] cysts, no specific follow-up needed Reading Location: [facility] Chest X-Ray 01/25/25 09:00 IMPRESSION: Tubes and lines in position. There are interstitial infiltrates throughout the right mid and lower lung and left lingular segment. There are trace bilateral effusions. Reading [facility] Rhythm Strip Rhythm Strip: Sinus Tach [...] Management Discussion w/another healthcare provider: Hospitalist and Supervisor Stave Cutting Procedures Intubations Intubation Method: orotracheal (7.5 ET [...] procedures): 30-74 minutes (47), Discussing w/Patient &/or Family/Admeasurer, Discussing w/Consultants, Arranging Admission or Transfer and Performing Direct Patient Care at Bedside Discharge Plan Dx/Rx/DC Orders Clinical Impression: Acute respiratory failure, Tachycardia, Aortic valve stenosis, Anticoagulated on apixaban, Pneumonia, Chronic anemia Disposition Disposition: Acute Care Hospital [facility] What to do if you have Problems For any increased pain, shortness of breath, bleeding, nausea or vomiting, chestpain, or any unexpected problems, contact your Primary Care Provider. Call [facility] ([phone]) or report to the closest Emergency Room. Call 911 if necessary. 01/25/25 1035 <Electronically signed by Mercy Flores DO> Cosigner Signature (if applicable): CC: Dr. Yoseph Fall MD ~ Signed [facility] Work Phone: 1(371) 335-401910-02-2025 NoteAcceptable Specimen? Acceptable Specimen(Evaluation not needed) Gram Stain 4+ Gram positive rods 4+ White Blood Cells 4+ Gram negative rods Rare Epithelial cellsWMercy HospitalComment on above:Performed By: #### M100.2400, M100.1999 ####[facility] [address] [place], [address](776) 698-733310-02-2025 Radiology Diagnostic study note [facility]10-02-2025 Radiology Diagnostic study [facility]10-02-2025 Radiology Diagnostic study [facility]09-30-2025 NoteHNO ID: [id number] Author: GREGOR FERNANDEZ APRN.ENGINE MECHANIC Service: ? Author Type: Nurse Practitioner Type: Progress Notes Filed: 01/23/2025 09:53 Note Text: PALLIATIVE MEDICINE AT HOME PROGRESS NOTE SERVICE DATE: January 23, 2025 IDENTIFICATION AND INTRODUCTION: Denia Gonzalez is a 69 year old female Pt did not arrive to visit. Sawmill Manager attempted to reach out, needs rescheduled [facility]09-16-2025 Telephone encounter Note* Telephone Encounter - Naima Haines MA - 01/09/2025 5:07 PM EDT Breanna notified. Naima Haines MA [facility]09-16-2025 Miscellaneous Notes* Telephone Encounter - Naima Haines MA - 01/09/2025 5:07 PM EDT Breanna notified. Naima Haines MA * Telephone Encounter - Yoseph Fall MD - 01/09/2025 5:02 PM EDT Lorazepam is contraindicated due to her chronic opioid use; ordered hydroxyzine instead for prn use Yoseph Fall MD * Telephone Encounter - Sukhi Marrero RN - 01/09/2025 4:37 PM EDT Breanna with [facility] Building And Grounds Supervisor calls to give update on anxiety. Breanna [...] with reply to response to #1 above. [phone] Padmini Abbott RN documented [facility] Telephone encounter Note * Telephone Encounter - Yoseph Fall MD - 01/09/2025 5:02 PM EDT Lorazepam is contraindicated due to her chronic opioid use; ordered hydroxyzine instead for prn use Yoseph Fall MD [facility]09-16-2025 Telephone encounter Note* Telephone Encounter - Sukhi Marrero RN - 01/09/2025 4:37 PM EDT Breanna with [facility] Building And Grounds Supervisor calls to give update on anxiety. Breanna [...] not on medication list. Sukhi Marrero RN [facility]09-16-2025 Telephone encounter Note* Telephone Encounter - [...] with reply to response to #1 above. [phone] Padmini Abbott RN [facility]09-15-2025 Telephone encounter Note* Telephone Encounter - Martha Baca MA - 01/08/2025 4:09 PM EDT Called and received Edda's identifiable and secure VM. LM with information below from Provider, if questions to contact the office. Martha Baca MA [facility]09-15-2025 Miscellaneous Notes* Telephone Encounter - Martha [...] - 01/08/2025 10:05 AM EDT Edda from [facility] calls and states that patient was supposed to have PT evaluation last week but was unable to do. Edda asking for a delay in care order for PT. Please review and advise, Judy Bliss RN documented in [facility] encounterGreene [facility]09-15-2025 Telephone encounter Note * Telephone Encounter - Nelson Robert APRN.CNP - 01/08/2025 11:01 AM EDT Okay for delay in care. Nelson Robert APRN.CNP [facility]09-15-2025 Telephone encounter Note* Telephone Encounter - Judy Bliss RN - 01/08/2025 10:05 AM EDT Edda from [facility] calls and states that patient was supposed to have PT evaluation last week but was unable to do. Edda asking for a delay in care order for PT. Please review and advise, Judy Bliss RN [facility]09-12-2025 Hospital Discharge instructions* Discharge Instructions* Lindsay Cheng APRN - [place] - 01/05/2025 2:29 PM EDT Valve Team will call with follow up appt. Please have non fasting kidney blood work test early nextweek Call your doctor with any medication questions or if you notice any side effects from your medications. If you are unable to fill your medications, please call your Sales Property Manager immediately. The office number is located with [...] be gone by tomorrow. documented in this [facility]09-12-2025 Attending History and physical note* Zaria Shea [...] Shea MD (Physician) Cardiology Expand All Collapse [facility] CARDIOLOGY - [place] [address] [facility] [address] Dept: [phone] Dept Visit type: New : 1955 Reason for Visit: New patient, Heart Valve Clinic Assessment and Plan 1. Preop cardiovascular exam - CBC auto differential - Comprehensive metabolic panel - Case Request Bilingual Sales Assistant: Left and right heart cath / [...] by mouth daily., Disp: , Rfl: HYDROcodone-acetaminophen (Dora) 5-325 MG tablet, Take 1 tablet by [...] NYHA Classification: Class III Frailty Score :6 [facility] Protocol: No, severe Cosigned by Zaria Shea MD at 01/05/2025 9:02 PM EDT [facility] [employer] Work Phone: 1([phone] 136-808009-12-2025 NoteH&P reviewed. The patient was examined and there are no changes to the H&P.[facility]09-12-2025 History and physical note* Zaria Shea MD [...] MD (Physician) Cardiology Expand All Collapse All [facility] CARDIOLOGY - [place] [address] [facility] [address] Dept: [phone] Dept Visit type: New : 1955 Reason for Visit: New patient, Heart Valve Clinic Assessment and Plan 1. Preop cardiovascular exam - CBC auto differential - Comprehensive metabolic panel - Case Request Bilingual Sales Assistant: Left and right heart cath / [...] by mouth daily., Disp: , Rfl: HYDROcodone-acetaminophen (Dora) 5-325 MG tablet, Take 1 tablet by [...] 01/05/2025 9:02 PM EDT documented in this [facility]09-12-2025 Nurse procedure note* Pre- Sedation Documentation - [...] Shea MD at 01/05/2025 9:33 PM EDT [facility] [employer] Phone: 1([phone]) 966-376509-12-2025 Miscellaneous Notes* Pre-Sedation Documentation - Octavia Luther [...] administer sedation as planned. Cosigned by Zaria hSea MD at 01/05/2025 9:33 PM EDT documented in this [facility]09-11-2025 NoteSpoke to patient and significant other. Verified all medications for AM before procedure. Answered all questions, reinforced cath teach. Verbalized understanding.[facility]09-11-2025 History and physical note* Shonda Bacon APRN - [place] - 01/04/2025 9:30 AM EDT Images from the original note were not included. Zaria Shea MD Cardiology Preop cardiovascular exam +1 more Dx Cardiac Valve Problem New Patient Reason for Visit Progress Notes Zaria Shea MD (Physician) Cardiology Expand All Collapse All [facility]ARDIOLOGY - [place] [address] [facility] [address] Dept: [phone] Dept Visit type: New : 1955 Reason for Visit: New patient, Heart Valve Clinic Assessment and Plan 1. Preop cardiovascular exam - CBC auto differential - Comprehensive metabolic panel - Case Request Bilingual Sales Assistant: Left and right heart cath / [...] by mouth daily., Disp: , Rfl: HYDROcodone-acetaminophen (Dora) 5-325 MG tablet, Take 1 tablet by [...] NYHA Classification: Class III [facility]ilty Score :6 [facility] Protocol: No, severe Cosigned by Zaria Shea MD at 01/05/2025 9:02 PM EDT [facility] [employer] Work Phone: 1([phone]) 237-611909-11-2025 History and physical note* ABRAHAM Reza CNP - 01/04/2025 9:30 AM EDT Images from the original note were not included. Zaria Shea MD Cardiology Preop cardiovascular exam +1 more Dx Cardiac Valve Problem New Patient Reason for Visit Progress Notes Zaria Shea MD (Physician) Cardiology Expand All Collapse All [facility]ARDIOLOGY - [place] [address] [facility] [address] Dept: [phone] Dept Visit type: New : 1955 Reason for Visit: New patient, Heart Valve Clinic Assessment and Plan 1. Preop cardiovascular exam - CBC auto differential - Comprehensive metabolic panel - Case Request Bilingual Sales Assistant: Left and right heart cath / [...] by mouth daily., Disp: , Rfl: HYDROcodone-acetaminophen (Dora) 5-325 MG tablet, Take 1 tablet by [...] 01/05/2025 9:02 PM EDT documented in this [facility]09-11-2025 NotePeJunior MD Cardiology Preop cardiovascular exam +1 more Dx Cardiac Valve Problem New Patient Reason for Visit Progress Notes Zaria Shea MD (Physician) Cardiology Expand All Collapse All [facility]ARDIOLOG[facility] - [place] [address] [facility] [address] Dept: [phone] Dept Visit type: New : 1955 Reason for Visit: New patient, Heart Valve Clinic Assessment and Plan 1. Preop cardiovascular exam - CBC auto differential - Comprehensive metabolic panel - Case Request Bilingual Sales Assistant: Left and right heart cath / [...] by mouth daily., Disp: , Rfl: HYDROcodone-acetaminophen (Dora) 5-325 MG tablet, Take 1 tablet by [...] (HCC) Anxiety Aortic st (more content not included)...[facility] [id number] Note Zaria Shea MD Cardiology Preop cardiovascular exam +1 more Dx Cardiac Valve Problem New Patient Reason for Visit Progress Notes Zaria Shea MD (Physician) Cardiology Expand All Collapse All [facility]ARDIOLOG[facility] - [place] [address] [facility] [address] Dept: [phone] Dept Visit type: New : 1955 Reason for Visit: New patient, Heart Valve Clinic Assessment and Plan 1. Preop cardiovascular exam - CBC auto differential - Comprehensive metabolic panel - Case Request Bilingual Sales Assistant: Left and right heart cath / [...] by mouth daily., Disp: , Rfl: HYDROcodone-acetaminophen (Dora) 5-325 MG tablet, Take 1 tablet by [...] Aortic st (more content not included)...[facility]09-11-2025 Note GLASSINE MACHINE TENDER notified to complete prep for proc orders. [...] [] EKG on arrival [] BMP [] [facility]09-10-2025 Telephone encounter Note* Telephone Encounter - Judy Bliss RN - 01/03/2025 11:23 AM EDT Breanna notified of below. Voices understanding. Judy Bliss RN [facility]09-10-2025 Miscellaneous Notes* Telephone Encounter - Judy Bliss RN - 01/03/2025 11:23 AM EDT Breanna notified of below. Voices understanding. Judy Bliss RN * Telephone Encounter - Nelson Robert APRN.CNP - 01/03/2025 11:22 AM EDT Noted. Okay with delay in care. Nelson Robert APRN.CNP * Telephone Encounter - Judy Bliss RN - 01/03/2025 8:34 AM EDT Breanna SW from [facility] HH calls and is asking for delay in care till next week. Breanna cannot see patient till next week. Judy Bliss, RN documented in [facility]Gre[facility]09-10-2025 Telephone encounter Note * Telephone Encounter - Nelson Robert APRN.CNP - 01/03/2025 11:22 AM EDT Noted. Okay with delay in care. Nelson Robert APRN.CNP [facility]09-10-2025 Telephone encounter Note* Telephone Encounter - Naima Haines MA - 01/03/2025 8:43 AM EDT Rafa notified and voiced understanding. Advised that pt appt has been changed to a VV. Naima Haines MA [facility]09-10-2025 Miscellaneous Notes* Telephone Encounter - Naima [...] - 01/02/2025 3:24 PM EDT Rafa from [facility] Home Health calling patient was discharged from [facility] on 12/30. Patient refused OT. Skliied nursing plans 2 visits weekly for 2 weeks, then 1 visit weekly for 2 weeks. Would like to add needs Social Work verbal order, for her mood, anxiety, depression. Palliative care had seen her while she was in [facility], hope they continue to see her. Patient [...] to Virtual. Please advise documented in this encounterGreene [facility]09-10-2025 Telephone encounter Note * Telephone Encounter - Judy Bliss RN - 01/03/2025 8:34 AM EDT Breanna SW from [facility] HH calls and is asking for delay in care till next week. Breanna cannot see patient till next week. Judy Bliss RN [facility]09-10-2025 NoteDischarge summary reviewed. Ok to proceed with cath this Wednesday if ok with patient.[facility]09-10-2025 NoteReceived notice patient admitted [facility]30 for iron deficiency anemia and acute COPD exacerbation. Will have GLASSINE MACHINE TENDER review discharge summary to determine if cath on Wednesday is appropriateTr[facility]09-09-2025 Telephone encounter Note* Telephone Encounter - Nelson Robert APRN.CNP - 01/02/2025 3:36 PM EDT Okay to proceed with HHC orders. Okay to proceed with social work orders. Okay to switch to virtualvisit. Nelson Robert CNP [facility]09-09-2025 Telephone encounter Note* Telephone Encounter - Brynn Watson LPN - 01/02/2025 3:24 PM EDT Rafa from [facility] Home Health calling patient was discharged from [facility] on 12/30. Patient refused OT. Skliied nursing plans 2 visits weekly for 2 weeks, then 1 visit weekly for 2 weeks. Would like to add needs Social Work verbal order, for her mood, anxiety, depression. Palliative care had seen her while she was in [facility], hope they continue to see her. Patient [...] to change it to Virtual. Please advise [facility]09-08-2025 Telephone encounter Note* Telephone Encounter - Nelson Robert APRN.CNP - 01/01/2025 8:58 AM EDT Noted. Patient has follow up with Dr. Fall scheduled on 01/19. Nelson Robert APRN.CNP [facility]09-08-2025 Miscellaneous Notes* Telephone Encounter - Nelson Robert APRN.CNP - 01/01/2025 8:58 AM EDT Noted. Patient has follow up with Dr. Fall scheduled on 01/19. Nelson Robert APRN.CNP * Telephone Encounter - Sukhi Marrero RN - 12/27/2024 2:47 PM EDT Palma Anguiano with [employer] calls to let provider know that patient was admitted to [facility] last evening for COPD exacerbation. [facility] Sukhi Marrero RN documented in this encounterGreene Memorial Hospital09-06-2025 Discharge summary [facility] Medical Records Department [address] [place] [address] Instructions for Home/Discharge Instructions 12/30/24 1141 MR#: [id number] Acct: [id number] Name: DENIA GONZALEZ Rep #:[id number] : 1955 69 From: Lynne Schafer MD [...] Fall Consulting Providers: Dionne Porter; Stacy Jha; Alessnadro Palma; Friend,Kyle; Elma Mendez; Mercedez Joseph; Jackie [...] Health Service 12/30/24 1142Lynne Schafer MD CC: STOCKROOM KEEPERLaura Mendez; STOCKROOM KEEPER-C Stacy Jha; MADDIC Mercedze Joseph; Dr. Dionne Porter MD; Dr. Yoseph Fall MD; Dr. Alessandro Palma MD;SADIQ Paez; Kyle Mendenhall DO ~ Signed [facility]09-06-2025 NoteWooWilson [facility]09-[facility]-2025 Progress note Author Lynne [facility] Note Date/Time December 29, 2024 4:00pm [facility] Medical Records Department [address] [place] [address] Progress Note 12/29/24 1346 MR#: [id number] Acct: [id number] Name: DENIA GONZALEZ Rep #:[id number] : 1955 69 From: Lynne Schafer MD PCP: Dr. Yoseph Fall MD Status:AD M IN Location: [place] [address] Subjective Subjective Patient seen and examined with [...] 89.9 H, Lymph % (Auto) 6.5 L, Lee % (Auto) 2.8, Eos % (Auto) 0.0, [...] I diastolic dysfunction. * To follow-up at [facility] as scheduled for evaluation for TAVR. [...] 24-48 hours Charges/Coding Visit Charges Inpatient E&M: 07352 Subs Hosp L2 12/29/24 1600 <Electronically signed by Lynne Schafer MD> Lynne Schafer MD Cosigner Signature (if applicable): CC: ~ Signed [facility] Work Phone: 1([phone]) 110-495009-05-2025 Progress note [facility] Medical Records Department [address] [place] [address] Progress Note 12/29/24 1346 MR#: [id number] Acct: [id number] Name: DENIA GONZALEZ Rep #:[id number] : 1955 69 From: Lynne Schafer MD PCP: Dr. Yoseph Fall MD Status:AD M IN Location: [place] [address] Subjective Subjective Patient seen and examined with [...] 89.9 H, Lymph % (Auto) 6.5 L, Lee % (Auto) 2.8, Eos % (Auto) 0.0, [...] I diastolic dysfunction. * To follow-up at [facility] as scheduled for evaluation for TAVR. [...] 24-48 hours Charges/Coding Visit Charges Inpatient E&M: 41838 Subs Hosp L2 12/29/24 1600 Lynne Schafer MD Cosigner Signature (if applicable): CC: ~ Signed [facility]09-05-2025 Progress note Author Stacy abdi [facility] Note Date/Time December 29, 2024 11:24am [facility] Medical Records Department [address] [place] [address] Progress Note - Palliative 12/29/24 1109 MR#: [id number] Acct: [id number] Name: DENIA GONZALEZ Rep #:[id number] : 1955 69 From: Stacy Nazario STOCKROOM KEEPER-C PCP: Dr. Yoseph Fall MD Status:AD M [facility] Subjective Subjective 12/29/24: Prior to [...] was then gently awakened by myself and GENERATION MECHANIC HELPER to do her vitals. Patient states that [...] allergic rhinitis, HTN who presents to the [facility] ED on 12/26/2024 with history of 3 to 4days of progressively worsening fatigue, malaise, dyspnea with chest tightness and wheezing coupled unfortunately with significant panic attacks whenever she has been attempting to leave the house with a productive cough specifically of yellow sputum prompting ED evaluation be cautious. She does report that she is supposed to have a heart cath at [facility] in the next several weeks because [...] BUN/creatinine 16/0.64, GFR 96, glucose 112, initial [id number] with repeat delta 25, chest x-ray with [...] 89.9 H, Lymph % (Auto) 6.5 L, Lee % (Auto) 2.8, Eos % (Auto) 0.0, [...] Affect: anxious Charges/Coding Palliative Care Palliative Care: 92985 Follow up 35-49 min Consulation Summary Current [...] a Healthcare Power No 12/26/24 21:29 of Service Captain? Do You Want Additional Declined 12/26/24 21:29 [...] a result of this Palliative Care Encounter: [[id number], [phone] ] minutes were spent in total for [...] Cosigner Signature (if applicable): CC: ~ Signed [facility] Work Phone: 1(244) 398-796709-05-2025 Progress note [facility] Medical Records Department [address] [place] [address] Progress Note - Palliative 12/29/24 1109 MR#: [id number] Acct: [id number] Name: DENIA GONZALEZ Rep #:[id number] : 1955 69 From: Stacy WATTS PCP: Dr. Yoseph Fall MD Status:AD M IN Location: [place] [address] 1 Subjective Subjective 12/29/24: Prior to meeting [...] stated understanding. Ting continues to be on [facility] oxygen administrationof 3 L and she is [...] was then gently awakened by myself and GENERATION MECHANIC HELPER to do her vitals. Patient states that [...] with allergic rhinitis,HTN who presents to the [facility] ED on 12/26/2024 with history of 3 to 4days of progressively worsening fatigue, malaise, dyspnea with chest tightness and wheezing coupled unfortunately with significant panic attacks whenever she has been attempting to leave the house with a productive cough specifically of yellow sputum prompting ED evaluation be cautious. She does report that she is supposed to have a heart cath at [facility] in the next several weeks because [...] BUN/creatinine 16/0.64, GFR 96, glucose 112, initial [id number] with repeat delta 25, chest x-ray with [...] 89.9 H, Lymph % (Auto) 6.5 L, Lee % (Auto) 2.8, Eos % (Auto) 0.0, [...] Affect: anxious Charges/Coding Palliative Care Palliative Care: 76205 Follow up 35-49 min Consulation Summary Current [...] a Healthcare Power No 12/26/24 21:29 of Service Captain? Do You Want Additional Declined 12/26/24 21:29 [...] a result of this Palliative Care Encounter: [[id number], [id number] ] minutes were spent in total for [...] Cosigner Signature (if applicable): CC: ~ Signed [facility]09-05-2025 Progress note Author Dionne Porter [facility] Note Date/Time December 28, 2024 11:28pm [facility] Medical Records Department [address] [place] [address] Progress Note - Hospitalist 12/28/242310 MR#: [id number] Acct: [id number] Name: DENIA GONZALEZ Rep #:[id number] : 1955 69 From: Dionne Porter MD PCP: Dr. Yoseph Fall MD Status:AD M IN Location: [place] [address] Hospitalist Note Patient with notable tachycardia, improved [...] Cosigner Signature (if applicable): cc: ~* Signed [facility] Work Phone: 1(912) 691-151609-04-2025 Progress note [facility] Medical Records Department [address] [address] Progress Note - Hospitalist 12/28/242310 MR#: [id number] Acct: [id number] Name: DENIA GONZALEZ Rep #:[id number] : 1955 69 From: Dionne Porter MD PCP: Dr. Yoseph Fall MD Status:AD M IN Location: [place] [address] Hospitalist Note Patient with notable tachycardia, improved [...] Cosigner Signature (if applicable): cc: ~* Signed [facility]09-04-2025 Consult note Author Joel [facility] Note Date/Time December 28, 2024 3:26pm [facility] Medical Records Department [address] [place] [address] Anesthesia Postop Eval II 12/28/24 1526 MR#: [id number] Acct: [id number] Name: DENIA GONZALEZ Rep #:[id number] : 1955 69 From: Joel WATKINS PCP: Dr. Yoseph Fall MD Status:AD M IN Y Race: C Location: [place] [address] 2-1 Anesthesia Postop Eval I Sum Postop [...] CRNA Cosigner Signature: Date CC: ~ Signed [facility] Work Phone: 1(997) 571-483109-04-2025 Progress note Author Lynne [facility] Note Date/Time December 28, 2024 3:24pm [facility] Medical Records Department [address] [place] [address] Progress Note 12/28/24 1450 MR#: [id number] Acct: [id number] Name: DENIA GONZALEZ Rep #:[id number] : 1955 69 From: Lynne Schafer MD PCP: Dr. Yoseph Fall MD Status:AD M IN Location: [place] [address]- Subjective Subjective Patient seen and examined with [...] 90.6 H, Lymph % (Auto) 5.5 L, Lee % (Auto) 3.0, Eos % (Auto) 0.0, [...] I diastolic dysfunction. * To follow-up at [facility] as scheduled for evaluation for TAVR. * On Multaq, Coreg and verapamil. * #Hypertension: On Coreg and verapamil. IV hydralazine as needed #History of paroxysmal A-fib: On Coreg and Multaq. Eliquis held in light of anemia. #GERD: On PPI DVT prophylaxis: SCDs Disposition: likely dc tomorrow. Charges/Coding Visit Charges Inpatient E&M: 91573 Subs Hosp L2 12/28/24 1524 <Electronically signed by Lynne Schafer MD> Lynne Schafer MD Cosigner Signature (if applicable): CC: ~ Signed [facility] Work Phone: 1(525) 337-618409-04-2025 Consult note [facility] Medical Records Department [address] [place] [address] Anesthesia Postop Eval II 12/28/24 1526 MR#: [id number] Acct: [id number] Name: DENIA GONZALEZ Rep #:[id number] : 1955 69 From: Joel Nguyen RNA PCP: Dr. Yoseph Fall MD Status:AD M IN Y Race: C Location: [place] [address] 2-1 Anesthesia Postop Eval I Sum Postop [...] No Complications Anesthesia Complication: No 12/28/24 1526 CREDIT CARD SPECIALIST> Date _ Joel Hurd CREDIT CARD SPECIALIST Cosigner Signature: Date CC: ~ Signed [facility]09-04-2025 Progress note [facility] Medical Records Department [address] [facility] [place] [address] Progress Note 12/28/24 1450 MR#: [id number] Acct: [id number] Name: DENIA GONZALEZ Rep #:[id number] : 1955 69 From: Lynne Schafer MD PCP: Dr. Yoseph Fall MD Status:AD M IN Location: [place] [address] Subjective Subjective Patient seen and examined with [...] 90.6 H, Lymph % (Auto) 5.5 L, Lee % (Auto) 3.0, Eos % (Auto) 0.0, [...] I diastolic dysfunction. * To follow-up at [facility] as scheduled for evaluation for TAVR. * On Multaq, Coreg and verapamil. * #Hypertension: On Coreg and verapamil. IV hydralazine as needed #History of paroxysmal A-fib: On Coreg and Multaq. Eliquis held in light of anemia. #GERD: On PPI DVT prophylaxis: SCDs Disposition: likely dc tomorrow. Charges/Coding Visit Charges Inpatient E&M: 61684 Subs Hosp L2 12/28/24 1524 Lynne Higgins Signature (if applicable): CC: ~ Signed [facility]09-04-2025 Consult note Author Saul Liao [facility] Note Date/Time December 28, 2024 12:05pm [facility] Medical Records Department [address] [facility] [place] [address] Anesthesia Postop Eval I 12/28/24 1202 MR#: [id number] Acct: [id number] Name: DENIA GONZALEZ Rep #:[id number] : 1955 69 From: Saul Liao PCP: Dr. Yoseph Fall MD Status:AD M IN Y Race: C Location: [place] [address] 2-1 Anesthesia: Postop Eval I Current Vital [...] Saul Higgins Signature: Date CC: ~ Signed [facility] Work Phone: [phone] Consult note Author Lawson [facility] Note Date/Time December 28, 2024 11:25am [facility] Medical Records Department [address] [place] [address] Pre-Anesthesia Evaluation 12/28/24 1121 MR#: [id number] Acct: [id number] Name: DENIA GONZALEZ Rep #:[id number] : 1955 69 From: Lawson Henry MD PCP: Dr. Yoseph Fall MD Status:AD M IN Y Race: C Location: [place] [address] 2-1 ASA Classification* ASA Classification ASA Classification: [...] Procedure(s): Esophagogastroduodenoscopy Anesthesia History Anesthesia History - instrument assembler: Anesthesia History - instrument assembler Hx Hospitalization No 05/05/20 07:54 Any Problems [...] sips of water?: No PONV PONV - instrument assembler: PONV - instrument assembler Female HX of Motion Sickness HX of N/V After Surgery Non-Smoker Duration of Surgery greater than 60 minutes Number of Risk Factors PONV Score Height & Weight Height & Weight: Anesthesia: Height & Weight Height 5 ft 4 in 12/28/24 09:46 Weight: 74.8 kg 12/28/24 09:46 Body Mass Index (BMI) 28.3 12/28/24 09:46 Respiratory Assessment Respiratory Assessment - instrument assembler: Respiratory Tract Infection Hx - instrument assembler Hx Respiratory Tract Infection No 12/27/24 20:12 STOP Sleep Apnea STOP Sleep Apnea - instrument assembler: STOP Sleep Apnea - instrument assembler Hx Hypertension Yes 12/26/24 21:29 Hx Sleep [...] Tobacco Use History Tobacco Use History - instrument assembler: Tobacco Use History - instrument assembler Tobacco Use Cigarettes 07/20/23 02:52 Smoking Status Former smoker 12/27/24 00:38 Hx Tobacco Use Yes 12/26/24 21:29 Years Smoking Packs Smoked per Day Smoking Cessation Date was Yes - quit smoking within 15 12/26/24 21:29 within the last 15 years years Hx Smoking Cessation Date 09/22/24 12/26/24 21:29 Hx Smoking Cessation No 12/26/24 21:29 Counseling Hematologic Medial History Hematologic Hx - instrument assembler: Hematologic Medical Hx - sub master Hx of Blood Transfusion No 12/26/24 21:29 [...] confused, unrespo /Reproduction History /Reproductive History - instrument assembler: /Reproductive Hx- instrument assembler Hx Now No 12/27/24 20:12 Gestational Age [...] 12/27/24 10:00 12/27/24 10:21 Fluticasone 0.05% 1 Tully Nasal.Sry NASAL 1 spray DAILY HINA Administration Guaifenesin 10 ml 12/26/24 21:09 12/27/24 18:06 Guaifenesin 10 Ml Udc (200mg/10ml) PO 10 ml Q4H PRN PRN Administration COUGH/CONGESTION Hydralazine HCl 10 mg 12/26/24 21:09 Hydralazine 20 Mg/Ml Vial IV Q4H PRN PRN SBP > 160 Protocol Sodium Chloride 250 mls @ 15 mls/hr 12/26/24 21:24 IV .[id number] PRN Saline Flush Sodium Chloride 250 mls @ 15 mls/hr 12/26/24 21:24 IV .[id number] PRN Additional IVPB Infusion Pantoprazole Sodium 40 [...] PO 180 mg BID HINA Administration Protocol [facility] Medical History Afib Aortic valve [...] MD Cosigner Signature: Date CC: ~ Signed [facility] Work Phone: 1([phone]) 799-750509-04-2025 Consult note Author Kyle Mendenhall [facility] Note Date/Time December 28, 2024 11:19am [facility] Medical Records Department [address] [place] [address] Consultation - GI 12/28/24 1116 MR#: [id number] Acct: [id number] Name: DENIA GONZALEZ Rep #:[id number] : 1955 69 From: Kyle Mendenhall DO PCP: Dr. Yoseph Fall MD Status:AD M IN Location: [place] [id number]- 1 HPI Consult Data Date of Consult: [...] to see her due to decreasing hemoglobin. [facility] Medical History Afib Aortic valve [...] 90.6 H, Lymph % (Auto) 5.5 L, Lee % (Auto) 3.0, Eos % (Auto) 0.0, [...] ASAof 3. Charges/Coding Visit Charges Inpatient E&M: 10428 Init Hosp L3 12/28/24 1119 <Electronically signed by Kyle Friend DO> Cosigner Signature (if applicable): CC: Dr. Yoseph Fall MD~ Signed [facility] Work Phone: 1(846) 276-136309-04-2025 Consult note [facility] Medical Records Department [address] [place] [address] Anesthesia Postop Eval I 12/28/24 1202 MR#: [id number] Acct: [id number] Name: DENIA GONZALEZ Rep #:[id number] : 1955 69 From: Saul Liao PCP: Dr. Yoseph Fall MD Status:AD M IN Y Race: C Location: [place] [address] 2-1 Anesthesia: Postop Eval I Current Vital [...] Saul Higgins Signature: Date CC: ~ Signed [facility]09-04-2025 Procedure note [facility] Medical Records Department [address] [place] [address] EGD Report MR#: [id number] Acct: [id number] Name: DENIA GONZALEZ Rep #:[id number] : 1955 69 From: Kyle Mendenhall DO [...] The examined esophagus was normal. Hematin (altered blood/wfiafh-jinqyp-ffgd material) was found in the gastric body. [...] Impression: - Normal esophagus. - Hematin (altered blood/ngtoth-fpjdvm-goyx material) in the gastric body. - Oozing gastric ulcers with pigmented material. Treated with a heater probe. 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 Treated with a heater probe. - No specimens collected. Recommendation: - Return patient to [facility] for ongoing care. - Resume previous diet. - Continue present medications. Procedure Code(s): --- Professional --- 61629, Small intestinal endoscopy, enteroscopy beyond second portion of duodenum, not including ileum; with ablation of tumor(s), polyp(s), or other lesion(s) not amenable to removal by hot biopsy forceps, bipolar cautery or snare technique 66922, 59,51, Small intestinal endoscopy, enteroscopy beyond second portion of duodenum, not including ileum; with control of bleeding (eg, injection, bipolar cautery, unipolar cautery, laser, heater probe, stapler, plasma taffy candy maker) CPT copyright 2021 [employer]. All rights reserved. The codes documented in this report are preliminary and upon cart driver review may be revised to meet current compliance requirements. Kyle Mendenhall DO 12/28/2024 11:52:52 AM This report has been signed electronically. Number of Addenda: 0 Note Initiated On: 12/28/2024 11:39 AM 12/28/24 1153 Date _ Kyle Mendenhall DO Cosigner Signature: Date (if indicated) CC: Dr. Yoseph Fall MD; Kyle Mendenhall DO ~ Date Dictated: 12/28/24 1139 Date Transcribed: Dive Superintendent: RF Signed [facility]09-04-2025 Procedure note [facility] Medical Records Department [address] [place] [address] Provation Physician Letter MR#: [id number] Acct: [id number] Name: DENIA GONZALEZ Rep #:[id number] : 1955 69 From: Kyle Mendenhall DO PCP: Dr. Yoseph Fall MD Status:AD M IN 12/28/2024 Yoseph Fall [address] [place] [address] Re : Upper GI endoscopy procedure for Denia Gonzalez Dear Dr. Fall This procedure was performed on December. My impressions and recommendations are as follows: Impressions : - Normal esophagus. - Hematin (altered blood/bnimzl-jxxtqx-bcht material) in the gastric body. - Oozing [...] ~ Date Dictated: 12/28/24 1139 Date Transcribed: Dive Superintendent: RF Signed [facility]09-04-2025 Progress note Author Stacy abdi [facility] Note Date/Time December 28, 2024 9:41am [facility] Medical Records Department [address] [place] [address] Progress Note - Palliative 12/28/24914 MR#: [id number] Acct: [id number] Name: DENIA GONZALEZ Rep #:[id number] : 1955 69 From: Stacy Nazario STOCKROOM KEEPER-C PCP: Dr. Yoseph Fall MD Status:AD M IN Location: [facility]- 1 Subjective Subjective 12/28/24: Prior to meeting [...] was then gently awakened by myself and GENERATION MECHANIC HELPER to do her vitals. Patient states that [...] allergic rhinitis, HTN who presents to the [facility] ED on 12/26/2024 with history of 3 to 4days of progressively worsening fatigue, malaise, dyspnea with chest tightness and wheezing coupled unfortunately with significant panic attacks whenever she has been attempting to leave the house with a productive cough specifically of yellow sputum prompting ED evaluation be cautious. She does report that she is supposed to have a heart [facility] in the next several weeks because [...] BUN/creatinine 16/0.64, GFR 96, glucose 112, initial [id number] with repeat delta 25, chest x-ray with [...] 90.6 H, Lymph % (Auto) 5.5 L, Lee % (Auto) 3.0, Eos % (Auto) 0.0, [...] Attitude: calm Charges/Coding Palliative Care Palliative Care: 73793 Follow up 35-49 min Consulation Summary Current [...] a Healthcare Power No 12/26/24 21:29 of Service Captain? Do You Want Additional Declined 12/26/24 21:29 [...] a result of this Palliative Care Encounter: [[id number] ] minutes were spent in total for [...] Cosigner Signature (if applicable): CC: ~ Signed [facility] Work Phone: 1([phone] Consult note [facility] Medical Records Department [address] [place] [address] Pre-Anesthesia Evaluation 12/28/24 1121 MR#: [id number] Acct: [id number] Name: DENIA GONZALEZ Rep #:[id number] : 1955 69 From: Lawson Henry MD PCP: Dr. Yoseph Fall MD Status:AD M IN Y Race: C Location: [place] [address] 2-1 ASA Classification* ASA Classification ASA Classification: [...] Procedure(s): Esophagogastroduodenoscopy Anesthesia History Anesthesia History - instrument assembler: Anesthesia History - instrument assembler Hx Hospitalization No 05/05/20 07:54 Any Problems [...] sips of water?: No PONV PONV - instrument assembler: PONV - instrument assembler Female HX of Motion Sickness HX of N/V After Surgery Non-Smoker Duration of Surgery greater than 60 minutes Number of Risk Factors PONV Score Height & Weight Height & Weight: Anesthesia: Height & Weight Height 5 ft 4 in 12/28/24 09:46 Weight: 74.8 kg 12/28/24 09:46 Body Mass Index (BMI) 28.3 12/28/24 09:46 Respiratory Assessment Respiratory Assessment - instrument assembler: Respiratory Tract Infection Hx - instrument assembler Hx Respiratory Tract Infection No 12/27/24 20:12 STOP Sleep Apnea STOP Sleep Apnea - instrument assembler: STOP Sleep Apnea - instrument assembler Hx Hypertension Yes 12/26/24 21:29 Hx Sleep [...] Tobacco Use History Tobacco Use History - instrument assembler: Tobacco Use History - instrument assembler Tobacco Use Cigarettes 07/20/23 02:52 Smoking Status Former smoker 12/27/24 00:38 Hx Tobacco Use Yes 12/26/24 21:29 Years Smoking Packs Smoked per Day Smoking Cessation Date was Yes - quit smoking within 15 12/26/24 21:29 within the last 15 years years Hx Smoking Cessation Date 09/22/24 12/26/24 21:29 Hx Smoking Cessation No 12/26/24 21:29 Counseling Hematologic Medial History Hematologic Hx - instrument assembler: Hematologic Medical Hx - sub master Hx of Blood Transfusion No 12/26/24 21:29 [...] confused, unrespo /Reproduction History /Reproductive History - instrument assembler: /Reproductive Hx- instrument assembler Hx Now No 12/27/24 20:12 Gestational Age [...] 12/27/24 10:00 12/27/24 10:21 Fluticasone 0.05% 1 Tully Nasal.Sry NASAL 1 spray DAILY HINA Administration Guaifenesin 10 ml 12/26/24 21:09 12/27/24 18:06 Guaifenesin 10 Ml Udc (200mg/10ml) PO 10 ml Q4H PRN PRN Administration COUGH/CONGESTION Hydralazine HCl 10 mg 12/26/24 21:09 Hydralazine 20 Mg/Ml Vial IV Q4H PRN PRN SBP > 160 Protocol Sodium Chloride 250 mls @ 15 mls/hr 12/26/24 21:24 IV .[id number] PRN Saline Flush Sodium Chloride 250 mls @ 15 mls/hr 12/26/24 21:24 IV .[id number] PRN Additional IVPB Infusion Pantoprazole Sodium 40 [...] PO 180 mg BID HINA Administration Protocol [facility] Medical History Afib Aortic valve [...] MD Cosigner Signature: Date CC: ~ Signed [facility]09-04-2025 Consult note [facility] Medical Records Department [address] [place] [address] Consultation - GI 12/28/24 1116 MR#: [id number] Acct: [id number] Name: DENIA GONZALEZ Rep #:[id number] : 1955 69 From: Kyle Mendenhall DO PCP: Dr. Yoseph Fall MD Status:AD M IN [facility] H[facility] Consult Data Date of [...] to see her due to decreasing hemoglobin. [facility] Medical History Afib Aortic valve [...] 90.6 H, Lymph % (Auto) 5.5 L, Lee % (Auto) 3.0, Eos % (Auto) 0.0, [...] ASAof 3. Charges/Coding Visit Charges Inpatient E&M: 27504 Init Hosp L3 12/28/24 1119 Cosigner Signature (if applicable): CC: Dr. Yoseph Fall MD~ Signed [facility]09-04-2025 Progress note [facility] Medical Records Department [address] [place] [address] Progress Note - Palliative 12/28/24 0915 MR#: [id number] Acct: [id number] Name: DENIA GONZALEZ Rep #:[id number] : 1955 69 From: Stacy Nazario STOCKROOM KEEPER-C PCP: Dr. Yoseph Fall MD Status:AD M IN Location: [place] [address] Subjective Subjective 12/28/24: Prior to meeting with [...] was then gently awakened by myself and GENERATION MECHANIC HELPER to do her vitals. Patient states that [...] with allergic rhinitis,HTN who presents to the [facility] ED on 12/26/2024 with history of 3 to 4days of progressively worsening fatigue, malaise, dyspnea with chest tightness and wheezing coupled unfortunately with significant panic attacks whenever she has been attempting to leave the house with a productive cough specifically of yellow sputum prompting ED evaluation be cautious. She does report that she is supposed [facility] in the next several weeks because [...] BUN/creatinine 16/0.64, GFR 96, glucose 112, initial [id number] with repeat delta 25, chest x-ray with [...] 90.6 H, Lymph % (Auto) 5.5 L, Lee % (Auto) 3.0, Eos % (Auto) 0.0, [...] Attitude: calm Charges/Coding Palliative Care Palliative Care: 05917 Follow up 35-49 min Consulation Summary Current [...] a Healthcare Power No 12/26/24 21:29 of Service Captain? Do You Want Additional Declined 12/26/24 21:29 [...] a result of this Palliative Care Encounter: [9311-9720 ] minutes were spent in total for [...] Cosigner Signature (if applicable): CC: ~ Signed [facility]09-03-2025 Progress note Author Lynne Schafer [facility] Note Date/Time December 27, 2024 6:32pm [facility] Medical Records Department [address] [place] [address] Progress Note 12/27/24 1546 MR#: [id number] Acct: [id number] Name: DENIA GONZALEZ Rep #:[id number] : 1955 69 From: Lynne Schafer MD PCP: Dr. Yoseph Fall MD Status:AD M IN Location: [place] [address] Subjective Subjective Patient seen and examined. She [...] 83.2 H, Lymph % (Auto) 11.3 L, Lee % (Auto) 4.5, Eos % (Auto) 0.1, [...] 88.7 H, Lymph % (Auto) 8.1 L, Lee % (Auto) 1.7, Eos % (Auto) 0.0, [...] I diastolic dysfunction. * [facility] for evaluation for TAVR. * On Multaq, Coreg and verapamil. * #Hypertension: On Coreg and verapamil. IV hydralazine as needed #History of paroxysmal A-fib: On Coreg and Multaq. Eliquis held in light of anemia. #GERD: On PPI DVT prophylaxis: SCDs Charges/Coding Visit Charges Inpatient E&M: 74671 Subs Hosp L2 12/27/24 1832 <Electronically signed by Lynne Schafer MD> Lynne Schafer MD Cosigner Signature (if applicable): CC: ~ Signed [facility] Work Phone: 1(830) 932-902909-03-2025 Progress note [facility] Medical Records Department [address] [place] [address] Progress Note 12/27/24 1546 MR#: [id number] Acct: [id number] Name: DENIA GONZALEZ Rep #:[id number] : 1955 69 From: Lynne Schafer MD PCP: Dr. Yoseph Fall MD Status:AD M IN Location: [place] [address]- Subjective Subjective Patient seen and examined. She [...] 83.2 H, Lymph % (Auto) 11.3 L, Lee % (Auto) 4.5, Eos % (Auto) 0.1, [...] 88.7 H, Lymph % (Auto) 8.1 L, Lee % (Auto) 1.7, Eos % (Auto) 0.0, [...] I diastolic dysfunction. * To [facility] for evaluation for TAVR. * On Multaq, Coreg and verapamil. * #Hypertension: On Coreg and verapamil. IV hydralazine as needed #History of paroxysmal A-fib: On Coreg and Multaq. Eliquis held in light of anemia. #GERD: On PPI DVT prophylaxis: SCDs Charges/Coding Visit Charges Inpatient E&M: 29955 Subs Hosp L2 12/27/24 1832 Lynne Schfaer MD Cosigner Signature (if applicable): CC: ~ Signed [facility]09-03-2025 Consult note Author Stacy abdi [facility] Note Date/Time December 27, 2024 3:21pm [facility] Medical Records Department [address] [place] [address] Consultation - Palliative Care 12/27/24 1408 MR#: [id number] Acct: [id number] Name: DENIA GONZALEZ Rep #:[id number] : 1955 69 From: Stacy WATTS PCP: Dr. Yoseph Fall MD Status:AD M IN Location: [address] Medical History Afib Aortic valve stenosis [...] and anxious Charges/Coding Palliative Care Palliative Care: 18236 New Pt Consult 80+ min HPI Current [...] allergic rhinitis, HTN who presents to the [facility] ED on 12/26/2024 with history of 3 to 4days of progressively worsening fatigue, malaise, dyspnea with chest tightness and wheezing coupled unfortunately with significant panic attacks whenever she has been attempting to leave the house with a productive cough specifically of yellow sputum prompting ED evaluation be cautious. She does report that she is supposed to [facility] in the next several weeks because [...] a Healthcare Power No 12/26/24 21:29 of Service Captain? Do You Want Additional Declined 12/26/24 21:29 Information on Advanced Directives or Healthcare Proxy/DPOA comments: Patient states that her POA would be her significant other Mike. She is in the process of having that paperwork notarized. Psychosocial/Spiritual Information Living situation/Marital status: Patient states that she lives independently with her significant other providingassistance as well as her neighbor. Geographic location: [place] Supports: Family and friends Scientology/Oneida or spiritual preference: No stated faith but states that she is spiritual Spiritual [...] 83.2 H, Lymph % (Auto) 11.3 L, Lee % (Auto) 4.5, Eos % (Auto) 0.1, [...] 88.7 H, Lymph % (Auto) 8.1 L, Lee % (Auto) 1.7, Eos % (Auto) 0.0, [...] pCO2 81.2 H* ABG pO2 106 H Choa Test Positive O2 Delivery Device Cannula Vent Mode Not entered Crit Call To/Read Back Yes Blood Gas Notified Whom White Blood Gas Notified Time 20:42:58 Attestation: I personally reviewed and interpreted this ABG as follows: Radiography Diagnostic Testing: Radiology Impression Chest X-Ray 12/26/24 15:28 IMPRESSION: Posttreatment changes. No acute abnormality. No significant change Reading Location[id number] Rhythm Strip Rhythm Strip: Sinus Rhythm Rate: [...] result of this Palliative Care Encounter: [ 7735-3575,[id number]=81] minutes were spent in total for this [...] applicable): CC: Dr. Yoseph Fall MD~ Signed [facility] Work Phone: 1(391) 508-396209-03-2025 Consult note [facility] Medical Records Department [address] [place] [address] Consultation - Palliative Care 12/27/24 1408 MR#: [id number] Acct: [id number] Name: DENIA GONZALEZ Rep #:[id number] : 1955 69 From: Stacy WATTS PCP: Dr. Yoseph Fall MD Status:AD M IN Location: [address] Medical History Afib Aortic valve stenosis [...] and anxious Charges/Coding Palliative Care Palliative Care: 50211 New Pt Consult 80+ min HPI Current [...] with allergic rhinitis,HTN who presents to the [facility] ED on 12/26/2024 with history of 3 to 4days of progressively worsening fatigue, malaise, dyspnea with chest tightness and wheezing coupled unfortunately with significant panic attacks whenever she has been attempting to leave the house with a productive cough specifically of yellow sputum prompting ED evaluation be cautious. She does report that she is supposed to have a heart [facility] in the next several weeks because [...] BUN/creatinine 16/0.64, GFR 96, glucose 112, initial prodcilv49 with repeat delta 25, chest x-ray with [...] a Healthcare Power No 12/26/24 21:29 of Service Captain? Do You Want Additional Declined 12/26/24 21:29 Information on Advanced Directives or Healthcare Proxy/DPOA comments: Patient states that her POA would be her significant other Mike. She is in the process of having that paperwork notarized. Psychosocial/Spiritual Information Living situation/Marital status: Patient states that she lives independently with her significant other providingassistance as well as her neighbor. Geographic location: [place] Supports: Family and friends Scientology/Oneida or spiritual preference: No stated faith but states that she is spiritual Spiritual [...] 83.2 H, Lymph % (Auto) 11.3 L, Lee % (Auto) 4.5, Eos % (Auto) 0.1, [...] 88.7 H, Lymph % (Auto) 8.1 L, Lee % (Auto) 1.7, Eos % (Auto) 0.0, [...] acute abnormality. No significant change Reading Location: -[id number] Rhythm Strip Rhythm Strip: Sinus Rhythm Rate: [...] result of this Palliative Care Encounter: [ 9067-2748,8935-0896=81] minutes were spent in total for this [...] applicable): CC: Dr. Yoseph Fall MD~ Signed [facility]09-03-2025 Telephone encounter Note* Telephone Encounter - Sukhi Marrero RN - 12/27/2024 2:47 PM EDT Palma Anguiano with [employer] calls to let provider know that patient was admitted to [facility] last evening for COPD exacerbation. [facility] Sukhi Marrero RN [facility]09-02-2025 History and physical note Author Dionne Porter [facility] Note Date/Time December 26, 2024 8:21pm [facility] Medical Records Department [address] [place] [address] H&P Exam - Hospitalist 12/26/241955 MR#: [id number] Acct: [id number] Name: DENIA GONZALEZ Rep #:[id number] : 1955 69 From: Dionne Porter MD PCP: Dr. Yoseph Fall MD Status:AD M IN Location: [facility] [id number]- 1 HPI - General General Date of [...] allergic rhinitis, HTN who presents to the [facility] ED on 12/26/2024 with history of 3 to 4 days of progressively worsening fatigue, malaise, dyspnea with chest tightness and wheezing coupled unfortunately with significant panic attacks whenever she has been attempting to leave the house with a productive cough specifically of yellow sputum prompting ED evaluation be cautious. She does report that she is supposed to have a heart [facility] in the next several weeks because [...] BUN/creatinine 16/0.64, GFR 96, glucose 112, initial cnrhohft74 with repeat delta 25, chest x-ray with [...] 1 and Solu-Medrol 125 mg IVx 1. [facility] Medical History Afib Aortic valve [...] 83.2 H, Lymph % (Auto) 11.3 L, Lee % (Auto) 4.5, Eos % (Auto) 0.1, [...] acute abnormality. No significant change Reading Location: [id number] Assessment & Plan Assessment/Plan (1) COPD with acute exacerbation: PLAN: Plan The patient is a 69 y/o F w/ PMHx: Valvular Heart Disease, GERD, RLS, Anxiety and Depression, Former tobacco use, Former EtOH Abuse, Hx Non-small cell lung cancer status post right lung lobectomy remotely 2003, COPD/Asthma with Chronic Hypoxic Respiratory Failure (2L NC) with allergic rhinitis, HTN who presents to the [facility] ED on 12/26/2024 with history of 3 [...] with plan as noted for [facility] with upcoming cardiac catheterization for consideration [...] 16 minutes. Charges/Coding Visit Charges Inpatient E&M: 26441 Init Hosp L3 Procedures Hospitalists Procedures: 12597 Advncd Care Plan 30 Min 12/26/242020 <Electronically signed by Dionne Proter MD> Cosigner Signature (if applicable): CC: Dr. Dionne Porter MD; Dr. Yoseph Fall MD~ Signed [facility] Work Phone: 1(164) 411-636509-02-2025 Discharge summary Author Marcel Zarate [facility] Note Date/Time December 26, 2024 8:00pm [facility] Medical Records Department [address] [place] [address] Emergency Department Summary 12/26/24 MR#: [id number] Acct: [id number] Name: DENIA GONZALEZ Rep #:[id number] : 1955 69 From: Marcel Zarate MD [...] is [facility] several weeks because of a leaky valve, her leg swelling is stable. She has been anticoagulated on apixaban because of A-fib. [facility] Medical History Afib Aortic valve [...] 83.2 H Lymph % (Auto) 11.3 L Lee % (Auto) 4.5 Eos % (Auto) 0.1 [...] acute abnormality. No significant change Reading Location: [id number] Rhythm Strip Rhythm Strip: Sinus Rhythm Rate: [...] Acute anemia Disposition Disposition: Acute Care Hospital [facility] What to do if you have Problems For any increased pain, shortness of breath, bleeding, nausea or vomiting, chestpain, or any unexpected problems, contact your Primary Care Provider. Call [facility] ([phone]) or report to the closest Emergency Room. Call 911 if necessary. 12/26/241999 <Electronically signed by Marcel Zarate MD> Cosigner Signature (if applicable): CC: Dr. Yoseph Fall MD ~ Signed [facility] Work Phone: 1(553) 454-134409-02-2025 History and physical note [facility] Medical Records Department [address] [place] [address] H&P Exam - Hospitalist 12/26/241955 MR#: [id number] Acct: [id number] Name: DENIA GONZALEZ Rep #:[id number] : 1955 69 From: Dionne Porter MD PCP: Dr. Yoseph Fall MD Status:AD M IN Location: [place] [address] HPI - General General Date of Admission: [...] with allergic rhinitis, HTNwho presents to the [facility] ED on 12/26/2024 with history of 3 to 4 days of progressively worsening fatigue, malaise, dyspnea with chest tightness and wheezing coupled unfortunately with significant panic attacks whenever she has been attempting to leave the house with a productivecough specifically of yellow sputum prompting ED evaluation be cautious. She does report that she is supposed to have [facility] heart [facility] in the next several weeks because [...] BUN/creatinine 16/0.64, GFR 96, glucose 112, initial fgazpfpy84 with repeat delta 25, chest x-ray with [...] 1 and Solu-Medrol 125 mg IVx 1. [facility] Medical History Afib Aortic valve [...] 83.2 H, Lymph % (Auto) 11.3 L, Lee % (Auto) 4.5, Eos % (Auto) 0.1, [...] acute abnormality. No significant change Reading Location: [id number] Assessment & Plan Assessment/Plan (1) COPD with acute exacerbation: PLAN: Plan The patient is a 69 y/o F w/ PMHx: Valvular Heart Disease, GERD, RLS, Anxiety and Depression, Former tobacco use, Former EtOH Abuse, Hx Non-small cell lung cancer status post right lung lobectomy remotely 2003, COPD/Asthma with Chronic Hypoxic Respiratory Failure (2L NC) with allergic rhinitis, HTNwho presents to the [facility] ED on 12/26/2024 with history of 3 [...] with plan as noted [facility] with upcoming cardiac catheterization for consideration [...] 16 minutes. Charges/Coding Visit Charges Inpatient E&M: 22900 Init Hosp L3 Procedures Hospitalists Procedures: 73672 Advncd Care Plan 30 Min 12/26/242020 Cosigner Signature (if applicable): CC: Dr. Dionne Porter MD; Dr. Yoseph Fall MD~ Signed [facility]09-02-2025 Discharge summary [facility] Medical Records Department [address] [place] [address] Emergency Department Summary 12/26/24 MR#: [id number] Acct: [id number] Name: DENIA GONZALEZ Rep #:[id number] : 1955 69 From: Marcel Zarate MD PCP: Dr. Yoseph aFll MD Status:RE G ER Location: ED HPI [...] is [facility] weeks because of a leaky valve, her leg swelling is stable. She has been anticoagulated onapixaban because of A-fib. [facility] Medical History Afib Aortic valve [...] 83.2 H Lymph % (Auto) 11.3 L Lee % (Auto) 4.5 Eos % (Auto) 0.1 [...] acute abnormality. No significant change Reading Location: -[id number] Rhythm Strip Rhythm Strip: Sinus Rhythm Rate: [...] Acute anemia Disposition Disposition: Acute Care Hospital [facility] What to do if you have Problems For any increased pain, shortness of breath, bleeding, nausea or vomiting, chestpain, or any unexpected problems, contact your Primary Care Provider. Call [facility] ([phone]) or report tothe closest Emergency Room. Call 911 if necessary. 12/26/241999 Cosigner Signature (if applicable): CC: Dr. Yoseph Fall MD ~ Signed [facility]09-02-2025 Radiology Diagnostic study note [facility] Imaging Services [address] [place] [address] Chest 1 View (Portable) MR#: [id number] Acct: [id number] Name: DENIA GONZALEZ Rep #: [id number] : 1955 F 69 From: Yaa Becerra MD PCP: Dr. Yoseph Fall MD Status: IA E ER Study:Chest 1 View (Portable) Date of Exam: 12/26/24 Exam# [id number] Ordering Dr: Hema Cardona P. PROCEDURE: CHEST [...] acute abnormality. No significant change Reading Location: [id number] CC: Dr. Yoseph Fall MD; ED PHYSICIAN PROVIDER ~ Dive Superintendent: Signed [facility]09-02-2025 Discharge summary Author Marcel Zarate [facility] Note Date/Time December 26, 2024 8:00pm [facility] Medical Records Department [address] [place] [address] Emergency Department Summary 12/26/24 MR#: [id number] Acct: [id number] Name: DENIA GONZALEZ Rep #:[id number] : 1955 69 From: Marcel Zarate MD [...] is [facility] the next several weeks because of a leaky valve, her leg swelling is stable. She has been anticoagulated on apixaban because of A-fib. [facility] Medical History Afib Aortic valve [...] 83.2 H Lymph % (Auto) 11.3 L Lee % (Auto) 4.5 Eos % (Auto) 0.1 [...] acute abnormality. No significant change Reading Location: [id number] Rhythm Strip Rhythm Strip: Sinus Rhythm Rate: [...] Acute anemia Disposition Disposition: Acute Care Hospital [facility] What to do if you have Problems For any increased pain, shortness of breath, bleeding, nausea or vomiting, chestpain, or any unexpected problems, contact your Primary Care Provider. Call [facility] ([phone]) or report to the closest Emergency Room. Call 911 if necessary. 12/26/241999 <Electronically signed by Marcel Zarate MD> Cosigner Signature (if applicable): CC: Dr. Yoseph Fall MD ~ Signed [facility] Work Phone: 1(568) 205-899609-02-2025 Telephone encounter Note* Telephone Encounter - Ban Villafana LPN - 12/26/2024 9:56 AM EDT Images from the original note were not included. Electronic PA rec'd and completed. Prior authorization approved Payer: [employer] [phone] Note from payer: CaseId:[id number];Status:Approved;Review Type:Prior Auth;Coverage Start Date:11/22/2024;Coverage End Date:12/22/2025; Approval [...] to its destination. To be filled at: [facility] [address] [place] [address] [address] [facility] - [phone] [facility]09-02-2025 Miscellaneous Notes* Telephone Encounter - Ban Villafana LPN - 12/26/2024 9:56 AM EDT Images from the original note were not included. Electronic PA rec'd and completed. Prior authorization approved Payer: [employer] [phone] Note from payer: CaseId:[id number];Status:Approved;Review Type:Prior Auth;Coverage Start Date:11/22/2024;Coverage End Date:12/22/2025; Approval [...] to its destination. To be filled at: [facility] [address] [place] [address] - [address] [place] - [phone] documented in [facility] Telephone encounter Note * Telephone Encounter - Judy Bliss RN - 12/22/2024 9:40 AM EDT Daughter in [facility] called and notified that prescription was sent to pharmacy. Voices understanding. Judy Bliss RN [facility]08-29-2025 Miscellaneous Notes* Telephone Encounter - Judy Bliss RN - 12/22/2024 9:40 AM EDT Daughter [place] [facility] [place] [...] advise, Judy Bliss RN documented in this encounterGre[facility]08-[facility]-2025 Telephone encounter Note * Telephone Encounter - Yoseph Fall MD - 12/22/2024 9:22 AM EDT OK for Atarax as ordered Yoseph Fall MD [facility]08-29-2025 Telephone encounter Note* Telephone Encounter - [...] Please review and advise, Judy Bliss RN [facility]08-26-2025 Telephone encounter Note* Telephone Encounter - Naima Haines MA - 12/19/2024 3:21 PM EDT [facility] notified. Naima Haines MA [facility]08-26-2025 Miscellaneous Notes* Telephone Encounter - Naima [...] 19, 2024 12:30 PM documented in this encounterGreene [facility]08-[facility]-2025 Telephone encounter Note * Telephone Encounter - Yoseph Fall MD - 12/19/2024 2:59 PM EDT OK to refill as ordered OK to increase Buspar to 20 mg bid as ordered to help with increased anxiety Yoseph Fall MD [facility]08-26-2025 Telephone encounter Note* Telephone Encounter - [...] Bliss RN December 19, 2024 12:30 PM [facility]08-22-2025 NotePROCEDURE: L/RHC PROCEDURE DATE: 01/05/25 PROCEDURE TIME: 10 am ARRIVE AT 8:30 am Report to the Central Lounge (first floor) at the hospital entrance at [address] Nothing to eat or drink [...] of procedure. Please make arrangements for a front end driver after the procedure. You will not [...] call the Prep and Recovery area at [phone]. The schedule is not finalized until the afternoon, so please avoid calling before 4:30 pm.[facility]08-22-2025 NoteDx: Procedure: L/RHC Date/Time: 01/05/25 at 10:00a Surgeon: TATYANA Location: [facility] Admission: OP Anesthesia: N/A Patient agreeable to above date/time. On PB calendar and printed card to start auth.[facility]08-22-2025 History of Present illness Narrative* Rubi Corbett MD - 12/15/2024 3:00 PM EDT Images from the original note were not included. [facility]: Cardiothoracic Surgery Multidisciplinary Heart Valve Clinic Date: 12/14/24 Patient:Denia Gonzalez 1955 69 y.o. female [id number] Subjective: HPI: Denia Gonzalez 69 y.o. referred by SADIQ Aguilar is being evaluated for aortic valve stenosis. Echocardiogram completed on 10/02/24 showed severe aortic valve stenosis with peak/mean gradients 75/50 mm Hg, SASHA 0.85 cm^2. Per note, patient with past medical history significant for COPD, chronic hypoxic respiratory failure, on home O2, HTN, smoker. Patient was admitted to [facility] 09/29/24 for respiratory failureand newly diagnosed [...] a past medical history of A-fib (CMS/HCC) ([facility]), Anxiety, Aortic stenosis, Asthma, Chronic respiratory failure ([facility]), COPD (chronic obstructive pulmonary disease) ([facility]), Depressed, History of ETOH abuse, HTN (hypertension), [...] were no vitals taken for this visit. @[id number]@ Physical Exam Constitutional: Appearance: Normal appearance. HENT: [...] echocardiography,and other diagnostic images. documented in this [facility]08-22-2025 History of Present illness Narrative* Zaria Shea MD - 12/15/2024 2:30 PM EDT Images from the original note were not included. [facility] [place] [address] [address] Dept: [phone] Dept Visit type: New : 1955 Reason for Visit: New patient, Heart Valve Clinic Assessment and Plan 1. Preop cardiovascular exam - CBC auto differential - Comprehensive metabolic panel - Case Request Bilingual Sales Assistant: Left and right heart cath / [...] by mouth daily., Disp: , Rfl: HYDROcodone-acetaminophen (Dora) 5-325 MG tablet, Take 1 tablet by [...] Father Stomach cancer Father documented in this [facility]08-15-2025 Telephone encounter Note* Telephone Encounter - Ban Villafana LPN - 12/08/2024 10:37 AM EDT Images from the original note were not included. prior authorization approved Payer: [employer] [phone] Note from payer: CaseId:[id number];Status:Approved;Review Type:Prior Auth;Coverage Start Date:11/08/2024;Coverage End Date:12/08/2025; Approval [...] to its destination. To be filled at: [facility] [address] [place] [address] [address] [facility] - [phone] Pharmacy notified. [facility]08-15-2025 Miscellaneous Notes* Telephone Encounter - Ban Villafana LPN - 12/08/2024 10:37 AM EDT Images from the original note were not included. prior authorization approved Payer: [facility] [phone] Note from payer: CaseId:[id number];Status:Approved;Review Type:Prior Auth;Coverage Start Date:11/08/2024;Coverage End Date:12/08/2025; Approval [...] to its destination. To be filled at: [facility] [address] [place] [address] [address] [facility] - [phone] Pharmacy notified. * Telephone Encounter - Ban Villafana LPN - 12/08/2024 10:31 AM EDT Electronic PA rec'd and completed for cyclobenzaprine (FLEXERIL) 10 mg tablet documented in this encounterGre[facility]08-[facility]-2025 Telephone encounter Note * Telephone Encounter - Ban Villafana LPN - 12/08/2024 10:31 AM EDT Electronic PA rec'd and completed for cyclobenzaprine (FLEXERIL) 10 mg tablet [facility]08-15-2025 Telephone encounter Note* Telephone Encounter - Nelson Robert APRN.CNP - 12/08/2024 9:26 AM EDT The following approved medication requests have been transmitted electronically. Requested Prescriptions Pending Prescriptions Disp Refills cyclobenzaprine (FLEXERIL) 10 mg tablet 60 tablet 5 Sig: Take 1 tablet by mouth two times a day as needed for muscle spasm. Nelson Robert APRN.CNP [facility]08-15-2025 Miscellaneous Notes* Telephone Encounter - Nelson [...] 08, 2024 9:19 AM documented in [facility]Gre[facility] Telephone encounter Note * Telephone Encounter [...] Louie RN December 08, 2024 9:19 AM [facility]08-05-2025 Telephone encounter Note* Telephone Encounter - Heena Howell - 11/28/2024 4:15 PM EDT Chart made and STOCKROOM KEEPER packet mailed [id number] Miscellaneous Notes* Telephone Encounter - Heena Howell - 11/28/2024 4:15 PM EDT Chart made and STOCKROOM KEEPER packet mailed * Telephone Encounter - Heena Howell - 11/23/2024 1:52 PM EDT Records scanned under Media and paper referral on my desk to make chart * Telephone Encounter - Heena Lynda - 11/22/2024 1:08 PM EDT VC appt made I need to make chart and mail STOCKROOM KEEPER packet. Working on getting records scanned in. documented in this [facility]08-04-2025 Telephone encounter Note* Telephone Encounter - Yoseph Fall MD - 11/27/2024 3:12 PM EDT Noted and agree Yoseph Fall MD [facility]08-04-2025 Miscellaneous Notes* Telephone Encounter - Yoseph Fall MD - 11/27/2024 3:12 PM EDT Noted and agree Yoseph Fall MD * Telephone Encounter - Padmini Abbott, KAREN - 11/27/2024 2:12 PM EDT Rafa with [facility] Nursing calling and states he plans to add 1 more visit to pt's plan of care, to discharge patient. No call back needed if provider agreeable with this. Padmini Abbott, KAREN documented in [facility] encounterGreene [facility]08-[facility]-20[facility] Telephone encounter Note * Telephone Encounter - Padmini Abbott RN - 11/27/2024 2:12 PM EDT Rafa with [facility] Nursing calling and states he plans to add 1 more visit to pt's plan of care, to discharge patient. No call back needed if provider agreeable with this. Padmini Abbott RN [facility]08-01-2025 Telephone encounter Note* Telephone Encounter - Mikayla Broussard RN - 11/24/2024 3:30 PM EDT Palliative Medicine at Home Care Coordination New Patient Note My chart note sent. Nurse introduced self and role of Circuit Manager in Palliative Medicine. Reviewed contact sheet information and on-call process. Nurse educated patient on medication refill process. Nurse encouraged patient to call with any questions/concerns/symptom related issues. KAMALJIT Shrestha Girl Friday [facility]08-01-2025 Miscellaneous Notes* Telephone Encounter - Mikayla Broussard RN - 11/24/2024 3:30 PM EDT Palliative Medicine at Home Care Coordination New Patient Note My chart note sent. Nurse introduced self and role of Circuit Manager in Palliative Medicine. Reviewed contact sheet information and on-call process. Nurse educated patient on medication refill process. Nurse encouraged patient to call with any questions/concerns/symptom related issues. KAMALJIT Shrestha Girl Friday documented in this encounterGreene [facility] Hospital08-01-2025 Telephone encounter Note * Telephone Encounter - Shira Shaw LISW - 11/24/2024 11:11 AM EDT November 24, 2024 Opened by mistake, please disregard. ALTA [facility] [facility] Social Work [phone] [facility] Work Phone: [phone] Miscellaneous Notes* Telephone Encounter - Shira Shaw LISW - 11/24/2024 11:11 AM EDT November 24, 2024 Opened by mistake, please disregard. ALTA [place] [facility] Social Work [phone] documented in this encounterGreene [facility] Hospital08-01-2025 Telephone encounter Note * Telephone Encounter - Yoseph Fall MD - 11/24/2024 10:30 AM EDT OK for doxycycline as ordered Yoseph Fall MD [facility]08-01-2025 Miscellaneous Notes* Telephone Encounter - Yoseph Fall MD - 11/24/2024 10:30 AM EDT OK for doxycycline as ordered Yoseph Fall MD * Telephone Encounter - Naima Haines MA - 11/23/2024 2:50 PM EDT Pt states she still feels like she needs an antibiotic, unable to take Levaquin due to medication interaction. [facility] [place]. Naima Haines MA * Telephone Encounter - Yoseph Fall MD - 11/23/2024 2:33 PM EDT Does she feel that she still needs an antibiotic? Yoseph Fall MD * Telephone Encounter - Sukhi Marrero RN - 11/20/2024 3:14 PM EDT Rafa RN with [facility] calls to let provider know that [...] Dr. Fall for when returns or if STOCKROOM KEEPER would review. Sukhi Marrero, RN documented in this encounterGreene [facility] Hospital07-31-2025 Telephone encounter Note * Telephone Encounter - Naima Haines MA - 11/23/2024 2:50 PM EDT Pt states she still feels like she needs an antibiotic, unable to take Levaquin due to medication interaction. [facility] [place]. Naima Haines MA [facility]07-31-2025 Telephone encounter Note* Telephone Encounter - Yoseph Fall MD - 11/23/2024 2:33 PM EDT Does she feel that she still needs an antibiotic? Yoseph Fall MD [facility]07-31-2025 Telephone encounter Note* Telephone Encounter - Yoseph Fall MD - 11/23/2024 2:23 PM EDT OK to refill as ordered Yoseph Fall MD [facility]07-31-2025 Miscellaneous Notes* Telephone Encounter - Yoseph [...] 23, 2024 1:00 PM documented in this encounterGreene Memorial Hospital07-31-2025 NoteRecords scanned under Media and paper referral on my desk to make [facility] 11-23-2024 Telephone encounter Note* Telephone Encounter - Heena Howell - 11/23/2024 1:52 PM EDT Records scanned under Media and paper referral on my desk to make chart [id number] Telephone encounter Note* Telephone Encounter - Martínez [...] Louie RN November 23, 2024 1:00 PM [facility]07-31-2025 Instructions* Patient Instructions* Gregor Fernandez APRN.[place]IN [...] of breath, or swelling, please contact your senior administrative support or go to the emergency room. - COPD and Breathing Support: - Continue using your nebulizer every 6 hours as directed. - Continue taking Spiriva and Singulair as prescribed. - You are doing well with nicotine patches and have stopped smoking. Please continue using the patches as needed. - A social media marketing analyst will reach out to explore options for [...] reach out to your primary care provider, senior administrative support,or palliative care team with any concerns. Good luck with your upcoming appointments and tests. Thank You, Gregor Fernandez CNP documented in this encounterGreene [facility] Hospital07-31-2025 History of Present illness Narrative* Gregor Fernandez APRN.ENGINE MECHANIC - 11/23/2024 7:00 AM EDT PALLIATIVE MEDICINE AT HOME INITIAL CONSULT SERVICE DATE: 11/23/2024 Referring Physician: Yoseph Fall [address] [facility] [address] Primary Physician: Yoseph Fall MD IDENTIFICATION AND INTRODUCTION: Denia Gonzalez is a 69 year old female This visit took place Virtually; I have communicated my name and active licensure. The patient's identity and physical location were verified at the time of this visit. The patient or their legal representative government relations has been informed of the risks and benefits of -- and alternatives to -- treatment through a remote evaluation and consents to proceed with the evaluation remotely. The patient is being seen with daughter in law Recording using ambient Ensogo software for draft documentation of the visit was discussed with the patient/authorized representative government relations; all questions welcomed and answered. Patient/authorized representative government relations agreed to proceed REASON FOR CONSULT: Introduction [...] Pt states she does not see a advanced clinical specialist, she is not seeing pain management Subjective [...] screening but has not yet seen a advanced clinical specialist. She uses 3 liters of oxygen and [...] longer distances. She receives home care from [facility] and the [facility] heart team. She manages herown medications [...] [place] (myocardial infarction) (HCC) 10-[address] [facility] "heart stopped" Obstructive chronic bronchitis with exacerbation [...] as directed. Dx: COPD J44.9 Nebulizer Accessories [facility] Mask and supplies as needed PULSE OXIMETER [facility] Use as directed to check oxygen saturation level ammonium lactate (AMLACTIN) 12 % lotion Apply 1 application to affected area as needed for Dry Skin. losartan (COZAAR) 50 mg tablet Take 0.5 tablets by mouth once daily. (Patient not taking: Reported on 11/23/2024) OXYGEN, HOME THERAPY, 2.5 L/min by Nasal Cannula route continuous. Use as directred Disposable Gloves (DISPOSABLE LATEX-FREE GLOVES) [facility] 1 Box once every month. ICD 10: [...] Paternal Grandfather REVIEW OF SYSTEMS: Modified ESAS ([place] Symptom Assessment Scale): Information Provided By: Patient [...] and coordination with other healthcare providers. - timber mill worker Shira to reach out to patient [...] patches. - Continue current medication regimen. - timber mill worker to assist with obtaining a more [...] Dr. Fall to explore referral to a size painter. 4. Generalized anxiety disorder (F41.1) Patient [...] remission. - No current follow-up with a advanced clinical specialist; consider referral to Dr. Guzmán for ongoing monitoring. 7. Dependence on supplemental oxygen (Z99.81) Patient is dependent on 3L of supplemental oxygen and experiences anxiety about leaving the house due to fear of running out of oxygen. - timber mill worker to assist with obtaining a more portable oxygen solution. - Monitor oxygen levels and adjust flow rate as necessary. 8. correction (current) use of 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 (Z79.52) Patient [...] Medicine Nurse to do telephonic follow-up: No Computer Graphic Artist Services: Telephonic discussion and assessment for community resources: Has portable tanks, is scared to leave her home. Could use a system that is rechargeable such as Inogen. Pt needs to be able to go see specialists such as pulmonology and cardiology Referral to Roof Tile Layer: No, not at this time Recommendations will be communicated back to the consulting service by way of shared electronic medical record. Some elements copied from PCP note dated 10/17/24 , which have been updated where appropriate, and reflect current medical decision making from today, 11/23/24 Gregor Fernandez APRN.CNP November 23, 2024 9:53 AM documented in this encounterGreene Memorial Hospital07-31-2025 NoteHNO ID: [id number] Author: GREGOR FERNANDEZ APRN.CNP Service: ? Author Type: Nurse Practitioner Type: Progress Notes Filed: 11/23/2024 10:01 Note Text: PALLIATIVE MEDICINE AT HOME INITIAL CONSULT SERVICE DATE: 11/23/2024 Referring Physician: Yoseph Fall [address] [facility] [address] Primary Physician: Yoseph Fall MD IDENTIFICATION AND INTRODUCTION: Denia Gonzalez is a 69 year old female This visit took place Virtually; I have communicated my name and active licensure. The patient's identity and physical location were verified at the time of this visit. The patient or their legal representative government relations has been informed of the risks and benefits of -- and alternatives to -- treatment through a remote evaluation and consents to proceed with the evaluation remotely. The patient is being seen with daughter in law Recording using C[employer] software for draft documentation of the visit was discussed with the patient/authorized representative government relations; all questions welcomed and answered. Patient/authorized representative government relations agreed to proceed REASON FOR CONSULT: Introduction [...] Pt states she does not see a advanced clinical specialist, she is not seeing pain management Subjective [...] screening but has not yet seen a advanced clinical specialist. She uses 3 liters of oxygen and [...] longer distances. She receives home care from [facility] and the [facility] heart team. She manages her own [...] (HCC) 04/26/2003 Kera (more content not included)...[facility]07-30-2025 Telephone encounter Note* Telephone Encounter - Heena Howell - 11/22/2024 1:08 PM EDT VC appt made I need to make chart and mail STOCKROOM KEEPER packet. Working on getting records scanned in. [id number] NoteHNO ID: [id number] Author: GREGOR FERNANDEZ APRN.CNP Service: ? Author Type: Nurse Practitioner Type: Progress Notes Filed: 11/21/2024 14:29 Note Text: PALLIATIVE MEDICINE AT HOME INITIAL CONSULT SERVICE DATE: 11/21/2024 Referring Physician: SELF Primary Physician: Yoseph Fall MD NO SHOW; sent to [facility]07-28-2025 History of Present illness Narrative* Gregor Fernandez APRN.ENGINE MECHANIC - 11/20/2024 7:41 PM EDT PALLIATIVE MEDICINE AT HOME INITIAL CONSULT SERVICE DATE: 11/21/2024 Referring Physician: SELF Primary Physician: Yoseph Fall MD NO SHOW; sent to scheduling clerk documented in this encounterGreene Memorial Hospital07-28-2025 Telephone encounter Note * Telephone Encounter - Sukhi Marrero RN - 11/20/2024 3:14 PM EDT Rafa RN with [facility] calls to let provider know that [...] Dr. Fall for when returns or if STOCKROOM KEEPER would review. Sukhi Marrero, RN [facility]07-21-2025 Telephone encounter Note* Telephone Encounter - Padmini Abbott RN - 11/13/2024 4:51 PM EDT Mike returned call and given provider's message below. Andres Abbott RN [facility]07-21-2025 Miscellaneous Notes* Telephone Encounter - Padmini [...] - 11/13/2024 2:08 PM EDT Brenda- nurse- [facility]- phoned to check on pcp reply to message below. Brenda reports when pt was discharged from [facility] she took the prednisone dose prescribed by [facility], and therefor ran out early. Advised message [...] advise. Padmini Abbott RN documented in this encounterGreene Memorial Hospital07-21-2025 Telephone encounter Note * Telephone Encounter - Naima Haines MA - 11/13/2024 3:46 PM EDT Message left for Mike to call back. Naima Haines MA [facility]07-21-2025 Telephone encounter Note* Telephone Encounter - Yoseph Fall MD - 11/13/2024 3:32 PM EDT New Rx done for 15 mg every day or every other day as needed Yoseph Fall MD [facility]07-21-2025 Telephone encounter Note* Telephone Encounter - Martínez Louie RN - 11/13/2024 2:08 PM EDT Brenda- nurse- [facility]- phoned to check on pcp reply to message below. Brenda reports when pt was discharged from [facility] she took the prednisone dose prescribed by [facility], and therefor ran out early. Advised message below was sent to pcp and we will call pt with his reply. [facility]07-18-2025 Telephone encounter Note* Telephone Encounter - [...] okay now. Please advise. Padmini Abbott RN [facility]07-11-2025 Telephone encounter Note* Telephone Encounter - Yoseph Fall MD - 11/03/2024 5:04 PM EDT Noted Yoseph Fall MD [facility]07-11-2025 Miscellaneous Notes* Telephone Encounter - Yoseph Fall MD - 11/03/2024 5:04 PM EDT Noted Yoseph Fall MD * Telephone Encounter - Martínez Louie RN - 10/25/2024 1:19 PM EDT Rafa [facility] reports patient asked him to call [...] - 10/24/2024 4:25 PM EDT Ubaldo with [facility] calls in regard to order for Palliative Care. In regards to DX: Ubaldo reports they can see pt for severe COPD. Ubaldo reports they cannot treat ptfor back pain unless it is in regards to cancer or something like that. Pt would need to see a painspecialist for that. Please review and advise. Jennifer Hennessy LPN documented in this encounterGreene Memorial Hospital07-11-2025 Evaluation note* Diagnosis Onset Date Resolution [...] hypertension chroni c February 08, 2025 9:23am [facility] Work Phone: [phone] Telephone encounter Note* Telephone Encounter - Nelson Robert APRN.CNP - 11/01/2024 10:31 AM EDT Noted for [facility]. Rx sent. The following approved medication requests have been transmitted electronically. Requested Prescriptions Pending Prescriptions Disp Refills nicotine (NICODERM) 14 mg/24 hr 28 patch 5 Sig: apply one patch transdermally as directed every 24 hours Nelson Robert APRN.CNP [facility]07-09-2025 Miscellaneous Notes* Telephone Encounter - Nelson Robert APRN.CNP - 11/01/2024 10:31 AM EDT Noted for [facility]. Rx sent. The following approved medication requests have been transmitted electronically. Requested Prescriptions Pending Prescriptions Disp Refills nicotine (NICODERM) 14 mg/24 hr 28 patch 5 Sig: apply one patch transdermally as directed every 24 hours Nelson Robert APRN.CNP * Telephone Encounter - Meenu Gurrola RN - 10/31/2024 3:47 PM EDT Fred nurse with [facility] Health calling in plan of care as he did nursing evaluation on patient today. Nursing will continue to see her 1x/week x 3 weeks. He states pt is also requesting a refill on her Nicotine Patch that the hospital prescribed for her. Send to [facility]. Pended. Next appt 01/[address] Fall. documented in this encounterGreene Memorial Hospital07-08-2025 Telephone encounter Note * Telephone Encounter - Meenu Gurrola RN - 10/31/2024 3:47 PM EDT Fred nurse with [facility] calling in plan of care as he did nursing evaluation on patient today. Nursing will continue to see her 1x/week x 3 weeks. He states pt is also requesting a refill on her Nicotine Patch that the hospital prescribed for her. Send to [facility]. Pended. Next appt 01/[address] Fall. [facility]07-02-2025 Telephone encounter Note* Telephone Encounter - Martínez Luoie RN - 10/25/2024 1:19 PM EDT Rafa [facility] reports patient asked him to call [...] Rafa agreeable and will let pt know. [facility]07-01-2025 Telephone encounter Note* Telephone Encounter - Lindsay Rios RN - 10/24/2024 5:25 PM EDT Rafa with [facility] is calling due to pharmacy unable to fill levaquin due to level 1 severe reaction with the multaq patient takes. When this happened when patient was d/c from [facility] the antibitoc was change to cefdinir 300mg. Rafa needs called back with information along with patient and a different medication sent to pharmacy. [facility]07-01-2025 Miscellaneous Notes* Telephone Encounter - Lindsay Rios RN - 10/24/2024 5:25 PM EDT Rafa with [facility] is calling due to pharmacy unable to fill levaquin due to level 1 severe reaction with the multaq patient takes. When this happened when patient was d/c from [facility] the antibitoc was change to cefdinir 300mg. [...] swelling. Please call patient back with reply. [phone] Padmini Abbott RN documented in this encounterGreene Memorial Hospital07-01-2025 Telephone encounter Note * Telephone Encounter - Magalie Anguiano RN - 10/24/2024 5:00 PM EDT Pt called and is notified of providers message and instructions. Pt voices understanding. Magalie Anguiano RN [facility]07-01-2025 Telephone encounter Note* Telephone Encounter - Yoseph Fall MD - 10/24/2024 4:55 PM EDT OK to just see her for severe COPD Yoseph Fall MD [facility]07-01-2025 Telephone encounter Note* Telephone Encounter - Yoseph Fall MD - 10/24/2024 4:55 PM EDT OK for another 7 days of Levaquin Yoseph Fall MD [facility]07-01-2025 Telephone encounter Note* Telephone Encounter - Jennifer Hennessy LPN - 10/24/2024 4:25 PM EDT Ubaldo with [facility] calls in regard to order for Palliative Care. In regards to DX: Ubaldo reports they can see pt for severe COPD. Ubaldo reports they cannot treat ptfor back pain unless it is in regards to cancer or something like that. Pt would need to see a painspecialist for that. Please review and advise. Jennifer Hennessy LPN [facility]07-01-2025 Telephone encounter Note* Telephone Encounter - [...] swelling. Please call patient back with reply. [phone] Padmini Abbott RN [facility]07-01-2025 Telephone encounter Note* Telephone Encounter - Mikayla Broussard RN - 10/24/2024 2:50 PM EDT Palliative Medicine Referral Assessment Referral Accepted: Yes, Location: Pall Med at Home. Patient current location: Home: Timeframe for schedulin-2 weeks Pall Med appropriate diagnosis: Diagnosis J44.9 (ICD-10-CM) - Stage 3 severe COPD by GOLD classification ([facility]) M54.40,G89.29 (ICD-10-CM) - Chronic low back pain with sciatica, sciatica laterality unspecified, unspecified back pain laterality Established with Inpatient Pall Med team: no Reason for consult: introduction to services, goals of care, fatigue, dyspnea, symptom support , and anxiety/mood and chronic pain [facility] no [facility] concerns identified by nurse. Mikayla Broussard RN October 24, 2024 [facility]07-01-2025 Miscellaneous Notes* Telephone Encounter - Mikayla Broussard RN - 10/24/2024 2:50 PM EDT Palliative Medicine Referral Assessment Referral Accepted: Yes, Location: Pall Med at Home. Patient current location: Home: Timeframe for schedulin-2 weeks Pall Med appropriate diagnosis: Diagnosis J44.9 (ICD-10-CM) - Stage 3 severe COPD by GOLD classification ([facility]) M54.40,G89.29 (ICD-10-CM) - Chronic low back pain with sciatica, sciatica laterality unspecified, unspecified back pain laterality Established with Inpatient Pall Med team: no Reason for consult: introduction to services, goals of care, fatigue, dyspnea, symptom support , and anxiety/mood and chronic pain Virtual Visit Clinic location: [facility]- no safety concerns identified by nurse. Mikayla Broussard RN October 24, 2024 documented in this encounterGreene Memorial Hospital06-30-2025 Telephone encounter Note * Telephone Encounter - Namia Haines MA - 10/23/2024 3:42 PM EDT Rafa notified. Referral faxed, demo, insurance card, OV note, med list faxed to [facility] at [phone] with Palliative Care specified on fax. Naima Haines MA [facility]06-30-2025 Miscellaneous Notes* Telephone Encounter - Naima Haines MA - 10/23/2024 3:42 PM EDT Rafa notified. Referral faxed, demo, insurance card, OV note, med list [facility] at [phone] with Palliative Care specified on fax. Naima Haines MA * Telephone Encounter - Yoseph Fall MD - 10/23/2024 2:46 PM EDT OK for Palliative Care consult as requested Yoseph Fall MD * Telephone Encounter - Magalie Anguiano RN - 10/23/2024 1:33 PM EDT Rafa RN [facility] called in about Pt and states je [...] chronic generalized pain and is on the Dora for it. He states the Pt would like a Palliative care referral for pain and breathing. I told him I don't think they do Palliative care for pain, but for breathing they do. Magalie Anguiano, KAREN documented in this encounterGreene Memorial Hospital06-30-2025 Telephone encounter Note * Telephone Encounter - Yoseph Fall MD - 10/23/2024 2:46 PM EDT OK for Palliative Care consult as requested Yoseph Fall MD [facility]06-30-2025 Telephone encounter Note* Telephone Encounter - Magalie Anguiano RN - 10/23/2024 1:33 PM EDT Rafa JOENS [facility] called in about Pt and states je [...] chronic generalized pain and is on the Dora for it. He states the Pt would like a Palliative care referral for pain and breathing. I told him I don't think they do Palliative care for pain, but for breathing they do. Magalie Anguiano RN [facility]06-27-2025 Telephone encounter Note* Telephone Encounter - Padmini Abbott RN - 10/20/2024 4:43 PM EDT Daughter returned call and given provider's message below. Padmini Abbott RN [facility]06-27-2025 Miscellaneous Notes* Telephone Encounter - Padmini [...] each ankle area. She has tried contacting [facility] over the past couple of [...] . Padmini Abbott RN documented [facility] Telephone encounter Note * Telephone Encounter - Naima Haines MA - 10/20/2024 4:27 PM EDT Message left for Symontee to call back. Naima Haines MA [facility]06-27-2025 Telephone encounter Note* Telephone Encounter - Yoseph Fall MD - 10/20/2024 4:20 PM EDT OK to start Lasix 20 mg daily as ordered to help with the swelling Yoseph Fall MD [facility]06-27-2025 Telephone encounter Note* Telephone Encounter - Padmini Abbott RN - 10/20/2024 3:41 PM EDT Patient's daughter Sinan Gonzalez calling in, with patient speaking in the background. Reports both of patient's feet have been "very" swollen for about 3 days now and asking if Dr. Fall will order pt a water pill. Swelling goes up into each ankle area. She has tried contacting [facility] over the past couple of [...] daughter with reply, . Padmini Abbott, RN [facility]06-27-2025 Telephone encounter Note* Telephone Encounter - Yoseph Fall MD - 10/20/2024 9:25 AM EDT Noted Palliative Care consult ordered Yoseph Fall MD [facility]06-27-2025 Miscellaneous Notes* Telephone Encounter - Yoseph Fall MD - 10/20/2024 9:25 AM EDT Noted Palliative Care consult ordered Yoseph Fall MD * Telephone Encounter - Martínez Louie RN - 10/19/2024 12:56 PM EDT Monae- nurse- [facility]- reports she saw patient today. Noted [...] referral to palliative care. documented in [facility] encounterGreene [facility] Telephone encounter Note * Telephone Encounter - Yoseph Fall MD - 10/20/2024 9:14 AM EDT Noted and agree Yoseph Fall MD [facility]06-27-2025 Miscellaneous Notes* Telephone Encounter - Yoseph Fall MD - 10/20/2024 9:14 AM EDT Noted and agree Yoseph Fall MD * Telephone Encounter - Judy Bliss RN - 10/19/2024 1:05 PM EDT Mercedez PT calling from [facility] to report plan of care for patient [...] 10:43 AM EDT Vilma OT calling from [facility] to report plan of care for [...] Advise, Judy Bliss RN documented in this encounterGreene [facility]06-[facility]25 Telephone encounter Note * Telephone Encounter - Judy Bliss RN - 10/19/2024 1:05 PM EDT Mercedez PT calling from [facility] to report plan of care for patient and physical therapy will visit patient 1 times a week for first week, 2 times a week for 4 weeks, and 1 time a week for 3 weeks. Physical therapy will work with patient on strength, gait transfers, and balance. No call back needed unless Questions Judy Bliss RN [facility]06-26-2025 Telephone encounter Note* Telephone Encounter - Martínez Louie RN - 10/19/2024 12:56 PM EDT Monae- nurse- [facility]- reports she saw patient today. Noted [...] pcp to place referral to palliative care. [facility]06-25-2025 Telephone encounter Note* Telephone Encounter - Judy Bliss RN - 10/18/2024 10:43 AM EDT Vilma OT calling from [facility] to report plan of care for [...] Please review and Advise, Judy Bliss RN [facility]06-24-2025 History of Present illness Narrative* Yoseph [...] visit. Either the patient or their legal representative government relations has been informed of the risks and benefits of -- and alternatives to -- treatment through a remote evaluation andconsents to proceed with the evaluation remotely. Quit smoking 45 days ago. Is wearing the patch. States for the most part she feels better and thinks her breathing is some better. Has some days when she craves the cigarettes. Pt admitted to [facility] on 09/29/24 if SOB, arrived to ER [...] [place], Cardio in 1 month,and Lindsay Whitehead ENGINE MECHANIC with [facility] in 1 week. Is using 3 L continuous oxygen. Anila getting scheduled for TAVR Is going to be having HH PT come out 3 x a week. She has more pain due to moving around more. Has had nurses out a few times to check her vitals. Is getting set up with Pain Management through Hospice. Below copied from [employer]: History of Present Illness Chief Complaint: Shortness [...] Secondary to that she presents for evaluation [facility] Narrative Medical decision making narrative: Patient arrived [...] 180 mg twice daily. Discussed with the senior administrative support Dr. Hopkins today. Discharge on verapamil and [...] Stage 3 severe COPD by GOLD classification ([facility]) - ICD9: 496, ICD10: J44.9 (primary diagnosis) [...] Past Histories independently gathered by the clinical care support representative and the remaining scribed note accurately describes my personal service to the patient. Yoseph Fall MD The documentation for this note was completed by Naima Haines MA acting as scribe for Yoseph Fall MD. October 17, 2024 2:34 PM. Naima Haines MA documented in this encounterGreene [facility]06-[facility]-2025 NoteHNO ID: [id number] Author: YOSEPH FALL MD Service: ? Author [...] visit. Either the patient or their legal representative government relations has been informed of the risks and benefits of -- and alternatives to -- treatment through a remote evaluation and consents to proceed with the evaluation remotely. Quit smoking 45 days ago. Is wearing the patch. States for the most part she feels better and thinks her breathing is some better. Has some days when she craves the cigarettes. Pt admitted to [facility] on 09/29/24 if SOB, arrived to ER [...] Cardio in 1 month, and Lindsay Whitehead ENGINE MECHANIC with [facility] in 1 week. Is using 3 L continuous oxygen. Will be getting scheduled for TAVR Is going to be having HH PT come out 3 x a week. She has more pain due to moving around more. Has had nurses out a few times to check her vitals. Is getting set up with Pain Management through Hospice. Below copied from [employer]: History of Present Illness Chief Complaint: Shortness [...] maintain sats >90 (more content not included)...[facility]06-20-2025 Telephone encounter Note* Telephone Encounter - Naima Haines MA - 10/13/2024 4:52 PM EDT Edda notified. Naima Haines MA [facility]06-20-2025 Miscellaneous Notes* Telephone Encounter - Naima Haines MA - 10/13/2024 4:52 PM EDT Edda notified. Naima Haines MA * Telephone Encounter - Yoseph Fall MD - 10/13/2024 4:48 PM EDT OK for delay of care order as requested Yoseph Fall MD * Telephone Encounter - Judy Bliss RN - 10/13/2024 4:38 PM EDT Edda from [facility] calls and states that they were supposed to do a PT evaluation this week, however, they are still waiting on insurance. Edda asking for delay care order. Please review and advise, Judy Bliss RN documented in this encounterGreene [facility]06-[facility] Telephone encounter Note * Telephone Encounter - Yoseph Fall MD - 10/13/2024 4:48 PM EDT OK for delay of care order as requested Yoseph Fall MD [facility]06-20-2025 Telephone encounter Note* Telephone Encounter - Judy Bliss RN - 10/13/2024 4:38 PM EDT Edda from [facility] calls and states that they were supposed to do a PT evaluation this week, however, they are still waiting on insurance. Edda asking for delay care order. Please review and advise, Judy Bliss RN [facility]06-19-2025 Telephone encounter Note* Telephone Encounter - Naima Haines MA - 10/12/2024 11:55 AM EDT Tried to reach pt, VM full, unable to leave message. Naima Haines MA [facility]06-19-2025 Miscellaneous Notes* Telephone Encounter - Naima [...] hydrocodone was given to her 3 x/daily. Dora refilled today #30 to take 1 pill [...] 12, 2024 9:47 AM documented in this encounterGreene [facility] Hospital06-19-2025 Telephone encounter Note * Telephone Encounter - Yoseph Fall MD - 10/12/2024 11:46 AM EDT She may go back to this dose of prednisone; will review at her appt Yoseph Fall MD [facility]06-19-2025 Telephone encounter Note* Telephone Encounter - Naima Haines MA - 10/12/2024 10:11 AM EDT Per pt Patient states that in the hospital she was given 40 mg of the prednisone for 4 days. Also the hydrocodone was given to her 3 x/daily. Dora refilled today #30 to take 1 pill BID. Do you want to refill for her to increase the dosage to 3 x a day or do you want to discuss furtherat pt appt on 10/17/24 Naima Haines MA [facility]06-19-2025 Telephone encounter Note* Telephone Encounter - [...] Orly Stacy October 12, 2024 9:47 AM [facility]06-19-2025 Telephone encounter Note* Telephone Encounter - Yoseph Fall MD - 10/12/2024 9:35 AM EDT OK to refill as ordered Yoseph Fall MD [facility]06-19-2025 Miscellaneous Notes* Telephone Encounter - Yoseph [...] 11, 2024 4:00 PM documented in this encounterGreene [facility] Hospital06-18-2025 Telephone encounter Note * Telephone Encounter [...] Bliss RN October 11, 2024 4:00 PM [facility]06-17-2025 Telephone encounter Note* Telephone Encounter - Naima Haines MA - 10/10/2024 4:46 PM EDT Detailed message left on Rafa's identified VM. Naima Haines MA [facility]06-17-2025 Miscellaneous Notes* Telephone Encounter - Naima Haines MA - 10/10/2024 4:46 PM EDT Detailed message left on Rafa's identified VM. Naima Haines MA * Telephone Encounter - Yoseph Fall MD - 10/10/2024 4:41 PM EDT Noted OK to continue Coreg and inhalers; will monitor Yoseph Fall MD * Telephone Encounter - Martínez Louie, KAREN - 10/10/2024 4:30 PM EDT Rafa- [facility]- reports he did start of care [...] with pcp on 10/17/24 documented in this encounterGreene [facility] Hospital06-[facility]-2025 Telephone encounter Note * Telephone Encounter - Yoseph Fall MD - 10/10/2024 4:41 PM EDT Noted OK to continue Coreg and inhalers; will monitor Yoseph Fall MD [facility]06-17-2025 Telephone encounter Note* Telephone Encounter - Martínez Louie, RN - 10/10/2024 4:30 PM EDT Rafa- [facility]- reports he did start of care [...] for hosp f/u with pcp on 10/17/24 [facility]06-17-2025 NoteHNO ID: [id number] Author: NAIMA HAINES MA Service: ? Author Type: Investment Advisor Type: Progress Notes Filed: 10/12/2024 09:36 Note Text: TRANSITION CARE MANAGEMENT (TCM) INITIAL CONTACT Investment Advisor Outreach Provider Action/FYI: 14 Day TCM Started [...] below 50,000 or Hemoglobin drops below 8. [facility] addendum to discharge summary stating that pharmacy raised concern about interaction between the Levaquin and Multaq. Levofloxacin was changed to Cefdinir. Follow up with Pulm, Dr. Guzmán in 1 month. Follow up with Cardio, Dr. Madrid in 1 month Follow up with Cardio STOCKROOM KEEPER, Lindsay Whitehead in 1 week 10/10/24-Message left [...] of Discharge 10/09/2024 SUMMARY: -Pt discharged from [facility] on 10/09/24. -Admitted for: 1) Aortic Valve Stenosis 2) A-fib Below copied from [employer]: History of Present Illness Chief Complaint: Shortness [...] COVID influenza and RSV testing were negative[facility] [...] TAVR on outp (more content not included)...[facility]06-17-2025 Telephone encounter Note* Telephone Encounter - Naima Haines MA - 10/10/2024 8:24 AM EDT TCM note started. Naima Haines MA [facility]06-17-2025 History of Present illness Narrative* Naima Haines MA - 10/10/2024 8:24 AM EDT TRANSITION CARE MANAGEMENT (TCM) INITIAL CONTACT Investment Advisor Outreach Provider Action/FYI: 14 Day TCM Started on Nicotine patches 14 mg daily, Verapamil changed from 240 mg to 180 mg 1 pill BID, Axheap088 mg 1 pill BID, Coreg 6.25 mg 1 Pill BID, Levofloxacin 500 mg 1 pill daily x 6 days and Eliquis 5 mg 1 pill BID (discontinue if platelet count drop below 50,000 or Hemoglobin drops below 8. [facility] addendum to discharge summary stating that pharmacy raised concern about interaction between the Levaquin and Multaq. Levofloxacin was changed to Cefdinir. Follow up with Pulm, Dr. Guzmán in 1 month. Follow up with Cardio, Dr. Madrid in 1 month Follow up with Cardio STOCKROOM KEEPER, Lindsay Whitehead in 1 week 10/10/24-Message left [...] of Discharge 10/09/2024 SUMMARY: -Pt discharged from [facility] on 10/09/24. -Admitted for: 1) Aortic Valve Stenosis 2) A-fib Below copied from [employer]: History of Present Illness Chief Complaint: Shortness [...] 180 mg twice daily. Discussed with the senior administrative support Dr. Hopkins today. Discharge on verapamil and [...] below 50,000 or Hemoglobin drops below 8. [facility] addendum to discharge summary stating that pharmacy raised concern about interaction between the Levaquin and Multaq. Levofloxacin was changed to Cefdinir. Were you told to hold any medications? No Were any of your medications discontinued? Yes Verapamil [address] [facility] addendum to discharge summary stating that pharmacy [...] for provider to review documented in this encounterGreene [facility] Hospital06-[facility]-2025 Miscellaneous Notes* Telephone Encounter - Naima [...] PM EDT They may wait until [facility] can get the Multaq tomorrow Yoseph Fall MD * Telephone Encounter - Magalie Anguiano RN - 10/09/2024 7:20 PM EDT Pt's significant other Mike called in and reports Pt was in the hospital for 11 days and released about an hour and a half ago. He states [facility] in [place] doesn't have the Multaq in stock, but [...] advise. Magalie Anguiano, RN documented in this encounterGreene Memorial Hospital06-17-2025 NotePatient Outreach (FAMPWS) DENIA GONZALEZ ([id number]) 1955 F Date Time Provider Department 10/10/24 NAIMA HAINES During your visit today, we recorded the following information about you: Naima Haines MA 10/12/2024 9:36 AM Signed TRANSITION CARE MANAGEMENT (TCM) INITIAL CONTACT Investment Advisor Outreach Provider Action/FYI: 14 Day TCM Started [...] below 50,000 or Hemoglobin drops below 8. [facility] addendum to discharge summary stating that pharmacy raised concern about interaction between the Levaquin and Multaq. Levofloxacin was changed to Cefdinir. Follow up with PulmDr. Guzmán in 1 month. Follow up with Cardio, Dr. Madrid in 1 month Follow up with Cardio STOCKROOM KEEPER, Lindsay Whitehead in 1 week 10/10/24-Message left [...] of Discharge 10/09/2024 SUMMARY: -Pt discharged from [facility] on 10/09/24. -Admitted for: 1) Aortic Valve Stenosis 2) A-fib Below copied from [employer]: History of Present Illness Chief Complaint: Shortness [...] COVID influenza and RSV testing were negative. [facility] is stable going against acute blood loss [...] mean peak gradi (more content not included)...[facility]06-16-2025 Telephone encounter Note* Telephone Encounter - Magalie Anguiano RN - 10/09/2024 7:46 PM EDT Pt's significant other Mike called and is notified of providers message and instructions. He voices understanding. Pt was discharged today you can't do TCM on same day as discharge, you have to waituntil at least 1 day after D/C. Magalie Anguiano RN [facility]06-16-2025 Telephone encounter Note* Telephone Encounter - Naima Haines MA - 10/09/2024 7:35 PM EDT Message left for pt or significant other Mike to call back. Please start a TCM encounter/note when pt calls back. Has appt for hospital d/c on 10/17/24. Naima Haines MA [facility]06-16-2025 Telephone encounter Note* Telephone Encounter - Yoseph Fall MD - 10/09/2024 7:33 PM EDT They may wait until [facility] can get the Multaq tomorrow Yoseph Fall MD [facility]06-16-2025 Telephone encounter Note* Telephone Encounter - Magalie Anguiano RN - 10/09/2024 7:20 PM EDT Pt's significant other Mike called in and reports Pt was in the hospital for 11 days and released about an hour and a half ago. He states [facility] in [place] doesn't have the Multaq in stock, but [...] Please call and advise. Magalie Anguiano, RN [facility]06-16-2025 Discharge summary [facility] Medical Records Department [address] [place] [address] Discharge Summary 10/09/24 1558 MR#: [id number] Acct: [id number] Name: DENIA GONZALEZ Rep #:[id number] : 1955 69 From: Alessandro Liu PCP: Dr. Yoseph Fall MD Status:AD M IN [facility] Date of Admission: 09/29/24 [...] mg twice daily. * Discussed with the senior administrative support Dr. Hopkins today. Discharge on verapamil and [...] 86.9 H, Lymph % (Auto) 6.9 L, Lee %(Auto) 5.3, Eos % (Auto) 0.0, Baso [...] failure, COPD exacerbation, pneumonia Attending Provider: Alessandro Palam Primary Care Provider: Yoseph Fall Consulting Providers: Dionne Porter; Jan Bolanos; Junito Madrid; Lynne Schfaer Discharge Orders/Prescriptions Prescriptions: New nicotine 14 mg/24 [...] Health Service Charges/Coding Visit Charges Inpatient E&M: 80707 Disch Hosp >30min 10/09/24 1606 Cosigner Signature (if applicable): CC: Dr. Yoseph Fall MD; Dr. Alessandro Palma MD~ Signed [facility]06-16-2025 Discharge summary [facility] Medical Records Department [address] [place] [address] Instructions for Home/Discharge Instructions 10/09/24 1542 MR#: [id number] Acct: [id number] Name: DENIA GONZALEZ Rep #:[id number] : 1955 69 From: Alessandro Liu PCP: [...] MD; Dr. Jan Bolanos MD ~ Signed [facility]06-16-2025 [facility]06-16-2025 Telephone encounter Note* Telephone Encounter - Naima Haines MA - 10/09/2024 3:56 PM EDT Detailed message left on below's identified and confidential VM. Naima Haines MA [facility]06-16-2025 Miscellaneous Notes* Telephone Encounter - Naima [...] - 10/09/2024 3:09 PM EDT Iman with [facility] calls to ask if provider will follow their HH orders for SN, PT, OT. Patient discharging home today from [facility] after being treated for COPD exacerbation and new onset A-fib. Please call Iman back at [phone]. Sukhi Marrero RN documented in this encounterGreene [facility] Hospital06-[facility]-2025 Telephone encounter Note * Telephone Encounter - Yoseph Fall MD - 10/09/2024 3:54 PM EDT Yes, I will follow their HH orders for SN, PT, OT Yoseph Fall MD [facility]06-16-2025 Telephone encounter Note* Telephone Encounter - Sukhi Marrero RN - 10/09/2024 3:09 PM EDT Iman with [facility] calls to ask if provider will follow their HH orders for SN, PT, OT. Patient discharging home today from [facility] after being treated for COPD exacerbation and new onset A-fib. Please call Iman back at [phone]. Sukhi Marrero RN [facility]06-16-2025 Telephone encounter Note* Telephone Encounter - Yoseph Fall MD - 10/09/2024 2:09 PM EDT Noted Yoseph Fall MD [facility]06-16-2025 Miscellaneous Notes* Telephone Encounter - Yoseph Fall MD - 10/09/2024 2:09 PM EDT Noted Yoseph Fall MD * Telephone Encounter - Padmini Abbott RN - 10/09/2024 8:39 AM EDT Palma Anguiano with [facility] calling to update provider that patient has been at [facility] since 09/29/24. Padmini Abbott RN documented in this encounterGreene [facility] Hospital06-16-2025 Telephone encounter Note * Telephone Encounter - Padmini Abbott RN - 10/09/2024 8:39 AM EDT Palma Anguiano with [facility] calling to update provider that patient has been at [facility] since 09/29/24. Padmini Abbott RN [facility]06-15-2025 Progress note Author Lynne Schafer [facility] Note Date/Time October 08, 2024 3:37 pm [facility] Medical Records Department [address] [place] [address] Progress Note 10/08/24 1100 MR#: [id number] Acct: [id number] Name: DENIA GONZALEZ Rep #:[id number] : 1955 69 From: Lynne Schafer MD PCP: Dr. Yoseph Fall MD Status:AD M IN Location: [place] [address] Subjective Subjective Patient seen and examined. Patient [...] 89.1 H, Lymph % (Auto) 5.1 L, Lee %(Auto) 4.7, Eos % (Auto) 0.0, Baso [...] PO eliquis. Charges/Coding Visit Charges Inpatient E&M: 04097 Subs Hosp L3 10/08/24 1537 <Electronically signed by Lynne Schafer MD> Lynne Schafer MD Cosigner Signature (if applicable): CC: ~ Signed [facility] Work Phone: 1(380) 342-245706-15-2025 Progress note Author Mihcael Plasencia [facility] Note Date/Time October 08, 2024 2:15 pm [facility] Medical Records Department [address] [place] [id number] Progress Note - Cardiology 10/08/24 1058 MR#: [id number] Acct: [id number] Name: DENIA GONZALEZ Rep #:[id number] : 1955 69 From: Michael Plasencia MD PCP: Dr. Yoseph Fall MD Status:AD M IN Location: [place] [address] Objective Data an episode of tachycardia today [...] 89.1 H, Lymph % (Auto) 5.1 L, Lee %(Auto) 4.7, Eos % (Auto) 0.0, Baso [...] 89.1 H, Lymph % (Auto) 5.1 L, Lee % (Auto) 4.7, Eos % (Auto) 0.0, [...] 10/08/24 at 1415 Visit Charges Inpatient E&M: 15430 Subs Hosp 10/08/24 1415<Electronically signed by Michael Plasencia MD> Cosigner Signature (if applicable): cc: ~* Signed [facility] Work Phone: 1(489) 692-676606-15-2025 Progress note [facility] Medical Records Department [address] [place] [address] Progress Note 10/08/24 1100 MR#: [id number] Acct: [id number] Name: DENIA GONZALEZ Rep #:[id number] : 1955 69 From: Lynne Schafer MD PCP: Dr. Yoseph Fall MD Status:AD M IN [facility] Subjective Subjective Patient seen and examined. Patient went into A-fib with RVR today with a heart rate going up to itr268s and 190s. She did complain of palpitations [...] 89.1 H, Lymph % (Auto) 5.1 L, Lee %(Auto) 4.7, Eos % (Auto) 0.0, Baso [...] PO eliquis. Charges/Coding Visit Charges Inpatient E&M: 75025 Subs Hosp L3 10/08/24 1537 Lynne Schafer MD Cosigner Signature (if applicable): CC: ~ Signed [facility]06-15-2025 Progress note [facility] Medical Records Department [address] [place] [address] Progress Note - Cardiology 10/08/24 1058 MR#: [id number] Acct: [id number] Name: DNEIA GONZALEZ Rep #:[id number] : 1955 69 From: Michael Plasencia MD PCP: Dr. Yoseph Fall MD Status:AD M IN Location: [place] [address] Objective Data an episode of tachycardia today [...] 89.1 H, Lymph % (Auto) 5.1 L, Lee %(Auto) 4.7, Eos % (Auto) 0.0, Baso [...] 89.1 H, Lymph % (Auto) 5.1 L, Lee % (Auto) 4.7, Eos % (Auto) 0.0, [...] 10/08/24 at 1415 Visit Charges Inpatient E&M: 86997 Subs Hosp L3 10/08/24 1415 Cosigner Signature (if applicable): cc: ~* Signed [facility]06-14-2025 Progress note Author Lynne Schafer [facility] Note Date/Time October 07, 2024 6:29 pm [facility] Medical Records Department [address] [place] [address] Progress Note 10/07/24 141 MR#: [id number] Acct: [id number] Name: DENIA GONZALEZ Rep #:[id number] : 1955 69 From: Lynne Schafer MD PCP: Dr. Yoseph Fall MD Status:AD M IN Location: [place] [address] Subjective Subjective Patient seen and examined. She [...] 89.2 H, Lymph % (Auto) 4.3 L, Lee %(Auto) 5.4, Eos % (Auto) 0.0, Baso [...] by tomorrow. Charges/Coding Visit Charges Inpatient E&M: 11728 Subs Hosp L2 10/07/249 <Electronically signed by Lynne Schafer MD> Lynne Schafer MD Cosigner Signature (if applicable): CC: ~ Signed [facility] Work Phone: [phone] 617-907406-14-2025 Progress note [facility] Medical Records Department [address] [place] [address] Progress Note 10/07/24 1413 MR#: [id number] Acct: [id number] Name: DENIA GONZALEZ Rep #:[id number] : 1955 69 From: Lynne Schafer MD PCP: Dr. Yoseph Fall MD Status:AD M IN Location: [place] [address]- Subjective Subjective Patient seen and examined. She [...] 89.2 H, Lymph % (Auto) 4.3 L, Lee %(Auto) 5.4, Eos % (Auto) 0.0, Baso [...] by tomorrow. Charges/Coding Visit Charges Inpatient E&M: 92948 [facility] Hosp L2 10/07/24 0493 Lynne Schafer MD Cosigner Signature (if applicable): CC: ~ Signed [facility]06-14-2025 Progress note Author Michael Plasencia [facility] Note Date/Time October 07, 2024 3:50 pm [facility] Medical Records Department [address] [place] [address] Progress Note - Cardiology 10/07/24 1059 MR#: [id number] Acct: [id number] Name: DENIA GONZALEZ Rep #:[id number] : 1955 69 From: Michael Plasencia MD PCP: Dr. Yoseph Fall MD Status:AD M IN Location: [place] [address] Objective Data No further episodes overnight Vital [...] 89.2 H, Lymph % (Auto) 4.3 L, Lee %(Auto) 5.4, Eos % (Auto) 0.0, Baso [...] 89.2 H, Lymph % (Auto) 4.3 L, Lee % (Auto) 5.4, Eos % (Auto) 0.0, [...] to be atrial flutter she will need skilled nursing anticoagulation for stroke prevention 10/07/24 1338 <Electronically signed by Michael Plasencia MD> Cosigner Signature (if applicable): CC: ~ Signed ADDENDUM by Dr. Michael Plasencia MD on 10/07/24 at 1550 Visit Charges Inpatient E&M: 12683 Subs Hosp L3 10/07/24 1550<Electronically signed by Michael Plasencia MD> Cosigner Signature (if applicable): cc: ~* Signed [facility] Work Phone: [phone] Progress note [facility] Medical Records Department [address] [place] [address] Progress Note - Cardiology 10/07/24 1059 MR#: [id number] Acct: [id number] Name: DENIA GONZALEZ Rep #:[id number] : 1955 69 From: Michael Plasencia MD PCP: Dr. Yoseph Fall MD Status:AD M IN Location: [place] [address] Objective Data No further episodes overnight Vital [...] 89.2 H, Lymph % (Auto) 4.3 L, Lee %(Auto) 5.4, Eos % (Auto) 0.0, Baso [...] 89.2 H, Lymph % (Auto) 4.3 L, Lee % (Auto) 5.4, Eos % (Auto) 0.0, [...] to be atrial flutter she will need termination clerk anticoagulation for stroke prevention 10/07/24 1338 Cosigner Signature (if applicable): CC: ~ Signed ADDENDUM by Dr. Michael Plasencia MD on 10/07/24 at 1550 Visit Charges Inpatient E&M: 98778 [facility] Hosp 10/07/24 1550 Cosigner Signature (if applicable): cc: ~* Signed [facility]06-13-2025 Progress note Author Michael Plasencia [facility] Note Date/Time October 06, 2024 9:11 pm [facility] Medical Records Department [address] [place] [address] Progress Note - Cardiology 10/06/24 1422 MR#: [id number] Acct: [id number] Name: DENIA GONZALEZ Rep #:[id number] : 1955 69 From: Michael Plasencia MD PCP: Dr. Yoseph Fall MD Status:AD M IN Location: [place] [address] Subjective Subjective Reports palpitations with these episodes. [...] 90.6 H, Lymph % (Auto) 4.6 L, Lee %(Auto) 3.9, Eos % (Auto) 0.0, Baso [...] 90.6 H, Lymph % (Auto) 4.6 L, Lee % (Auto) 3.9, Eos % (Auto) 0.0, [...] stroke evaluation. Charges/Coding Visit Charges Inpatient E&M: 00369 Subs Hosp L3 10/06/242108 <Electronically signed by Michael Plasencia MD> Cosigner Signature (if applicable): CC: ~ Signed ADDENDUM by Dr. Michael Plasencia MD on 10/06/24 at 2111 Addendum If it turns out to be atrial flutter she will need anticoagulation for stroke prevention 10/06/242110<Electronically signed by Michael Plasencia MD> Cosigner Signature (if applicable): cc: ~* Signed [facility] Work Phone: [phone] Progress note [facility] Medical Records Department [address] [place] [address] Progress Note - Cardiology 10/06/24 1422 MR#: [id number] Acct: [id number] Name: DENIA GONZALEZ Rep #:[id number] : 1955 69 From: Michael Plasencia MD PCP: Dr. Yoseph Fall MD Status:AD M IN Location: [place] [address] Subjective Subjective Reports palpitations with these episodes. [...] 90.6 H, Lymph % (Auto) 4.6 L, Lee %(Auto) 3.9, Eos % (Auto) 0.0, Baso [...] 90.6 H, Lymph % (Auto) 4.6 L, Lee % (Auto) 3.9, Eos % (Auto) 0.0, [...] stroke evaluation. Charges/Coding Visit Charges Inpatient E&M: 56517 [facility] Hosp L3 10/06/242108 Cosigner Signature (if applicable): CC: ~ Signed ADDENDUM by Dr. Michael Plasencia MD on 10/06/24 at 2111 Addendum If it turns out to be atrial flutter she will need anticoagulation for stroke prevention 10/06/242110 Cosigner Signature (if applicable): cc: ~* Signed [facility]06-13-2025 Progress note Author Lynne Schafer [facility] Note Date/Time October 06, 2024 5:23 pm [facility] Medical Records Department [address] [place] [address] Progress Note 10/06/24 1720 MR#: [id number] Acct: [id number] Name: DENIA GONZALEZ Rep #:[id number] : 1955 69 From: Lynne Schafer MD PCP: Dr. Yoseph Fall MD Status:AD M IN Location: [place] [address] Subjective Subjective Patient seen and examined today. [...] 90.6 H, Lymph % (Auto) 4.6 L, Lee %(Auto) 3.9, Eos % (Auto) 0.0, Baso [...] therapeutic Lovenox Charges/Coding Visit Charges Inpatient E&M: 01673 Subs Hosp L2 10/06/24 172 <Electronically signed by Lynne Schafer MD> Lynne Schafer MD Cosigner Signature (if applicable): CC: ~ Signed [facility] Work Phone: [phone] Progress note [facility] Medical Records Department [facility] [place] [address] Progress Note 10/06/24 172 MR#: [id number] Acct: [id number] Name: DENIA GONZALEZ Rep #:[id number] : 1955 69 From: Lynne Schafer MD PCP: Dr. Yoseph Fall MD Status:AD M IN Location: [place] [address] Subjective Subjective Patient seen and examined today. [...] She [facility]. Objective Data Objective Data Vital Signs: [...] 90.6 H, Lymph % (Auto) 4.6 L, Lee %(Auto) 3.9, Eos % (Auto) 0.0, Baso [...] therapeutic Lovenox Charges/Coding Visit Charges Inpatient E&M: 97568 Subs Hosp L2 10/06/24 1723 Lynne Schafer MD Cosigner Signature (if applicable): CC: ~ Signed [facility]06-12-2025 Progress note Author Lynne [facility] Note Date/Time October 05, 2024 6:28 pm [facility] Medical Records Department [address] [place] [address] Progress Note 10/05/24 1233 MR#: [id number] Acct: [id number] Name: DENIA GONZALEZ Rep #:[id number] : 1955 69 From: Lynne Schafer MD PCP: Dr. Yoseph Fall MD Status:AD M IN Location: [place] [address] Subjective Subjective Patient seen and examined. She [...] 91.1 H, Lymph % (Auto) 5.2 L, Lee %(Auto) 3.0, Eos % (Auto) 0.0, Baso [...] by tomorrow. Charges/Coding Visit Charges Inpatient E&M: 16664 Subs Hosp L2 10/05/24 1828 <Electronically signed by Lynne Schafer MD> Lynne Schafer MD Cosigner Signature (if applicable): CC: ~ Signed [facility] Work Phone: [phone] 290-544706-12-2025 Progress note [facility] Medical Records Department [address] [facility] [place] [address] Progress Note 10/05/24 1233 MR#: [id number] Acct: [id number] Name: DENIA GONZALEZ Rep #:[id number] : 1955 69 From: Lynne Schafer MD PCP: Dr. Yoseph Fall MD Status:AD M IN Location: [place] [address] Subjective Subjective Patient seen and examined. She [...] 91.1 H, Lymph % (Auto) 5.2 L, Lee %(Auto) 3.0, Eos % (Auto) 0.0, Baso [...] by tomorrow. Charges/Coding Visit Charges Inpatient E&M: 66386 Subs Hosp L2 10/05/24 4228 Lynne Schafer MD Cosigner Signature (if applicable): CC: ~ Signed [facility]06-11-2025 Progress note Author Lynne Schafer [facility] Note Date/Time October 04, 2024 5:59 pm [facility] Medical Records Department [address] [place] [address] Progress Note 10/04/24 1206 MR#: [id number] Acct: [id number] Name: DENIA GONZALEZ Rep #:[id number] : 1955 69 From: Lynne Schafer MD PCP: Dr. Yoseph Fall MD Status:AD M IN Location: [place] [address] Subjective Subjective Patient seen and examined. She [...] 90.1 H, Lymph % (Auto) 6.4 L, Lee %(Auto) 2.9, Eos % (Auto) 0.0, Baso [...] 24-48 hours. Charges/Coding Visit Charges Inpatient E&M: 93900 Subs Hosp L2 10/04/24 5937 <Electronically signed by Lynne Schafer MD> Lynne Schafer MD Cosigner Signature (if applicable): CC: ~ Signed [facility] Work Phone: [phone] Progress note [facility] Medical Records Department [address] [place] [address] Progress Note 10/04/24 1206 MR#: [id number] Acct: [id number] Name: DENIA GONZALEZ Rep #:[id number] : 1955 69 From: Lynne Schafer MD PCP: Dr. Yoseph Fall MD Status:AD M IN Location: [place] [address] Subjective Subjective Patient seen and examined. She [...] 90.1 H, Lymph % (Auto) 6.4 L, Lee %(Auto) 2.9, Eos % (Auto) 0.0, Baso [...] 24-48 hours. Charges/Coding Visit Charges Inpatient E&M: 23490 Subs Hosp L2 10/04/24 3843 Lynne Schafer MD Cosigner Signature (if applicable): CC: ~ Signed [facility]06-11-2025 Progress note Author Junito Madrid [facility] Note Date/Time October 04, 2024 10:2 2am [facility] Medical Records Department [address] [place] [address] Progress Note - Cardiology 10/04/24 1014 MR#: [id number] Acct: [id number] Name: DENIA GONZALEZ Rep #:[id number] : 1955 69 From: Junito Madrid MD PCP: Dr. Yoseph Fall MD Status:AD M IN Location: [place] [address] Subjective Subjective Patient is resting comfortably in [...] 90.1 H, Lymph % (Auto) 6.4 L, Lee %(Auto) 2.9, Eos % (Auto) 0.0, Baso [...] 90.1 H, Lymph % (Auto) 6.4 L, Lee % (Auto) 2.9, Eos % (Auto) 0.0, [...] baseline she will be reevaluated inin the [facility] office for further evaluation and [...] tolerated. 3. Patient should follow-up with the [facility] in 2 to 3 weeks after discharge when she is completely cleared of her COPD exacerbation. 4. The patient should call to schedule that appointment with Dr. Madrid or one of the advanced practitioners. 5. From a cardiovascular standpoint the patient should be able to be dischargedonce her COPD exacerbation is controlled. Charges/Coding Visit Charges Inpatient E&M: 18697 Subs Hosp L3 10/04/24 1022 <Electronically signed by Junito Madrid MD> Cosigner Signature (if applicable): CC: ~ Signed [facility] Work Phone: [phone] Progress note [facility] Medical Records Department [address] [place] [address] Progress Note - Cardiology 10/04/24 1014 MR#: [id number] Acct: [id number] Name: DENIA GONZALEZ Rep #:[id number] : 1955 69 From: Junito Madrid MD PCP: Dr. Yoseph Fall MD Status:AD M IN Location: [place] [address] Subjective Subjective Patient is resting comfortably in [...] 90.1 H, Lymph % (Auto) 6.4 L, Lee %(Auto) 2.9, Eos % (Auto) 0.0, Baso [...] 90.1 H, Lymph % (Auto) 6.4 L, Lee % (Auto) 2.9, Eos % (Auto) 0.0, [...] baseline she will be reevaluated inin the [facility] office for further evaluation and [...] tolerated. 3. Patient should follow-up with the [facility] in 2 to 3 weeks after discharge when she is completely cleared of her COPD exacerbation. 4. The patient should call to schedule that appointment with Dr. Madrid or one of the advanced practitioners. 5. From a cardiovascular standpoint the patient should be able to be dischargedonce her COPD exacerbation is controlled. Charges/Coding Visit Charges Inpatient E&M: 21657 [facility] Hosp 10/04/24 1022 Cosigner Signature (if applicable): CC: ~ Signed [facility]06-10-2025 Progress note Author Lynne Schafer [facility] Note Date/Time October 03, 2024 5:50 pm [facility] Medical Records Department [address] [place] [address] Progress Note 10/03/24 1218 MR#: [id number] Acct: [id number] Name: DENIA GONZALEZ Rep #:[id number] : 1955 69 From: Lynne Schafer MD PCP: Dr. Yoseph Fall MD Status:AD M IN Location: [place] [address] 1 Subjective Subjective Patient seen and examined [...] 93.2 H, Lymph % (Auto) 5.2 L, Lee %(Auto) 1.2, Eos % (Auto) 0.0, Baso [...] therapeutic Lovenox Charges/Coding Visit Charges Inpatient E&M: 03063 Subs Hosp L2 10/03/24 3225 <Electronically signed by Lynne Schafer MD> Lynne Schafer MD Cosigner Signature (if applicable): CC: ~ Signed [facility] Work Phone: [phone] 911-830406-10-2025 Progress note [facility] Medical Records Department [address] [place] [address] Progress Note 10/03/24 1218 MR#: [id number] Acct: [id number] Name: DENIA GONZALEZ Rep #:[id number] : 1955 69 From: Lynne Schafer MD PCP: Dr. Yoseph Fall MD Status:AD M IN Location: [place] [address] Subjective Subjective Patient seen and examined with [...] 93.2 H, Lymph % (Auto) 5.2 L, Lee %(Auto) 1.2, Eos % (Auto) 0.0, Baso [...] therapeutic Lovenox Charges/Coding Visit Charges Inpatient E&M: 52008 Subs Hosp L2 10/03/24 0884 Lynne Schafer MD Cosigner Signature (if applicable): CC: ~ Signed [facility]06-10-2025 Progress note Author Junito Madrid [facility] Note Date/Time October 03, 2024 8:49 am [facility] Medical Records Department [address] [place] [address] Progress Note - Cardiology 10/03/24 0840 MR#: [id number] Acct: [id number] Name: DENIA GONZALEZ Rep #:[id number] : 1955 69 From: Junito Madrid MD PCP: Dr. Yoseph Fall MD Status:AD M IN Location: [place] [address] Subjective Subjective Patient is resting comfortably in [...] MD Yoseph Fall Performed By: Sar[facility] Torrez [facility] Const alert and oriented x3 [...] as tolerated. Charges/Coding Visit Charges Inpatient E&M: 14518 Subs Hosp L3 10/03/24 0849 <Electronically signed by Junito Madrid MD> Cosigner Signature (if applicable): CC: ~ Signed [facility] Work Phone: [phone] 213-442906-10-2025 Progress note [facility] Medical Records Department [address] [place] [address] Progress Note - Cardiology 10/03/2440 MR#: [id number] Acct: [id number] Name: DENIA GONZALEZ Rep #:[id number] : 1955 69 From: Junito Madrid MD PCP: Dr. Yoseph Fall MD Status:AD M IN Location: [place] [address] Subjective Subjective Patient is resting comfortably in [...] as tolerated. Charges/Coding Visit Charges Inpatient E&M: 90789 Subs Hosp L3 10/03/24 0815 Cosigner Signature (if applicable): CC: ~ Signed [facility]06-09-2025 Progress note Author Lynne Schafer [facility] Note Date/Time October 02, 2024 6:52p m [facility] Medical Records Department [address] [place] [address] Progress Note 10/02/24 1220 MR#: [id number] Acct: [id number] Name: DENIA GONZALEZ Rep #:[id number] : 1955 69 From: Lynne Schafer MD PCP: Dr. Yoseph Fall MD Status:AD M IN Location: [place] [address] Subjective Subjective Patient seen and examined. SHe [...] 89.8 H, Lymph % (Auto) 6.1 L, Lee %(Auto) 3.3, Eos % (Auto) 0.0, Baso [...] therapeutic lovenox Charges/Coding Visit Charges Inpatient E&M: 77079 [facility] Hosp 10/02/24 1852 <Electronically signed by Lynne Schafer MD> Lynne Schafer MD Cosigner Signature (if applicable): CC: ~ Signed [facility] Work Phone: [phone] Progress note [facility] Medical Records Department [address] [place] [address] Progress Note 10/02/24 1220 MR#: [id number] Acct: [id number] Name: DENIA GONZALEZ Rep #:[id number] : 1955 69 From: Lynne Schafer MD PCP: Dr. Yoseph Fall MD Status:AD M IN Location: [place] [address] Subjective Subjective Patient seen and examined. SHe [...] 89.8 H, Lymph % (Auto) 6.1 L, Lee %(Auto) 3.3, Eos % (Auto) 0.0, Baso [...] therapeutic lovenox Charges/Coding Visit Charges Inpatient E&M: 24325 [facility] Hosp L3 10/02/24 6195 Lynne Schafer MD Cosigner Signature (if applicable): CC: ~ Signed [facility]06-09-2025 Consult note Author Junito Madrid [facility] Note Date/Time October 02, 2024 10:13 am [facility] Medical Records Department [address] [place] [address] Consultation - Cardiology 10/02/24 1000 MR#: [id number] Acct: [id number] Name: DENIA GONZALEZ Rep #:[id number] : 1955 69 From: Junito Madrid MD PCP: Dr. Yoseph Fall MD Status:AD M IN Location: [place] [id number]- 1 Assessment & Plan Assessment/Plan (1) Tachycardia: [...] cardiovascular issues that she is aware of. [facility] Medical History RLS (restless legs [...] Applicable: No Charges/Coding Visit Charges Inpatient E&M: 99271 Init Hosp L2 Objective Data Vital Signs: [...] 89.8 H, Lymph % (Auto) 6.1 L, Lee %(Auto) 3.3, Eos % (Auto) 0.0, Baso [...] 89.8 H, Lymph % (Auto) 6.1 L, Lee % (Auto) 3.3, Eos % (Auto) 0.0, [...] applicable): CC: Dr. Yoseph Fall MD~ Signed [facility] Work Phone: [phone] 428-700406-09-2025 Consult note [facility] Medical Records Department [address] [place] [address] Consultation - Cardiology 10/02/24 1000 MR#: [id number] Acct: [id number] Name: DENIA GONZALEZ Rep #:[id number] : 1955 69 From: Junito Madrid MD PCP: Dr. Yoseph Fall MD Status:AD M IN Location: [place] [address] Assessment & Plan Assessment/Plan (1) Tachycardia: PLAN: [...] cardiovascular issues that she is aware of. [facility] Medical History RLS (restless legs [...] Applicable: No Charges/Coding Visit Charges Inpatient E&M: 47757 Init Hosp L2 Objective Data Vital Signs: [...] 89.8 H, Lymph % (Auto) 6.1 L, Lee %(Auto) 3.3, Eos % (Auto) 0.0, Baso [...] 89.8 H, Lymph % (Auto) 6.1 L, Lee % (Auto) 3.3, Eos % (Auto) 0.0, [...] applicable): CC: Dr. Yoseph Fall MD~ Signed [facility]06-08-2025 Progress note Author Dionne Porter [facility] Note Date/Time October 01, 2024 9:42p m [facility] Medical Records Department [address] [facility] [place] [address] Progress Note - Hospitalist 10/01/242140 MR#: [id number] Acct: [id number] Name: DENIA GONZALEZ Rep #:[id number] : 1955 69 From: Dionne Porter MD PCP: Dr. Yoseph Fall MD Status:AD M IN Location: [place] [address] Hospitalist Note Patient with episode tacycardia, rate 160s, went back down to 120s, changing to ipratropium only instead of duonebs, dose with her verapamil now and will assureno active EtOH usage history as prior EtOH abuse. 10/01/242141 <Electronically signed by Dionne Porter MD> Cosigner Signature (if applicable): CC: ~ Signed [facility] Work Phone: [phone] 514-146506-08-2025 Progress note [facility] Medical Records Department [address] [facility] [place] [address] Progress Note - Hospitalist 10/01/242140 MR#: [id number] Acct: [id number] Name: DENIA GONZALEZ Rep #:[id number] : 1955 69 From: Dionne Porter MD PCP: Dr. Yoseph Fall MD Status:AD M IN Location: [place] [address] Hospitalist Note Patient with episode tacycardia, rate 160s, went back down to 120s, changing to ipratropium only instead of duonebs, dose with her verapamil now and will assureno active EtOH usage history as prior EtOH abuse. 10/01/242141 Cosigner Signature (if applicable): CC: ~ Signed [facility]06-08-2025 Progress note Author Jan Bolanos [facility] Note Date/Time October 01, 2024 10:49 am [facility] Medical Records Department [address] [place] [address] Progress Note - Hospitalist 10/01/24 1043 MR#: [id number] Acct: [id number] Name: DENIA GONZALEZ Rep #:[id number] : 1955 69 From: Jan brennan MD PCP: Dr. Yoseph Fall MD Status:AD M IN Location: [place] [address] Subjective Subjective Feels okay but not quite [...] 89.0 H, Lymph % (Auto) 6.8 L, Lee %(Auto) 3.6, Eos % (Auto) 0.0, Baso [...] DVT: Lovenox Charges/Coding Visit Charges Inpatient E&M: 23244 Subs Hosp L2 10/01/24 7216 <Electronically signed by Jan Bolanos MD> Cosigner Signature (if applicable): CC: ~ Signed [facility] Work Phone: [phone] 303-426706-08-2025 Progress note [facility] Medical Records Department [address] [place] [address] Progress Note - Hospitalist 10/01/24 1043 MR#: [id number] Acct: [id number] Name: DENIA GONZALEZ Rep #:[id number] : 1955 69 From: Jan brennan MD PCP: Dr. Yoseph Fall MD Status:AD M IN Location: [place] [address] Subjective Subjective Feels okay but not quite [...] 89.0 H, Lymph % (Auto) 6.8 L, Lee %(Auto) 3.6, Eos % (Auto) 0.0, Baso [...] DVT: Lovenox Charges/Coding Visit Charges Inpatient E&M: 11853 Subs Hosp L2 10/01/24 1049 Cosigner Signature (if applicable): CC: ~ Signed [facility]06-07-2025 Progress note Author Jan Bolanos [facility] Note Date/Time September 30, 2024 1:23p m [facility] Medical Records Department [address] [place] [address] Progress Note - Hospitalist 09/30/24 1220 MR#: [id number] Acct: [id number] Name: DENIA GONZALEZ Rep #:[id number] : 1955 69 From: Jan brennan MD PCP: Dr. Yoseph Fall MD Status:AD M IN Location: [place] [address] Subjective Subjective No issues overnight, she still [...] 88.1 H, Lymph % (Auto) 8.0 L, Lee %(Auto) 3.5, Eos % (Auto) 0.0, Baso [...] DVT: Lovenox Charges/Coding Visit Charges Inpatient E&M: 06206 Subs Hosp L2 09/30/24 1323 <Electronically signed by Jan Bolanos MD> Cosigner Signature (if applicable): CC: ~ Signed [facility] Work Phone: [phone] 207-594706-07-2025 Progress note [facility] Medical Records Department [address] [place] [address] Progress Note - Hospitalist 09/30/24 1220 MR#: [id number] Acct: [id number] Name: DENIA GONZALEZ Rep #:[id number] : 1955 69 From: Jan brennan MD PCP: Dr. Yoseph Fall MD Status:AD M IN Location: [place] [address] Subjective Subjective No issues overnight, she still [...] 88.1 H, Lymph % (Auto) 8.0 L, Lee %(Auto) 3.5, Eos % (Auto) 0.0, Baso % (Auto) 0.0, Absolute Neuts (auto) 6.8, Absolute Lymphs (auto) 0.61 L, Nucleated RBC % 0, Sodium 138, Potassium 4.6, Tcvlvatk73 L, Carbon Dioxide 33.3 H, Anion Gap [...] DVT: Lovenox Charges/Coding Visit Charges Inpatient E&M: 26011 Subs Hosp L2 09/30/24 1320 Cosigner Signature (if applicable): CC: ~ Signed [facility]06-06-2025 Evaluation note* Diagnosis Onset Date Resolution Status Admit Date Afib acute September 29, 2024 11:36am Anxiety and depression acute [facility] 2024 11:36am Aortic valve stenosis acute Sep 11:36am Tachycardia acute September 29 11:36am COPD with acute exacerbation chronic September 29, 2024 11:36am Non-small cell lung cancer chronic September 29, 2024 11:36am [facility] Work Phone: [phone]) 624-278606-06-2025 Evaluation note* Diagnosis Onset Date Resolution Status Admit Date Anxiety and depression acute [facility] 2024 11:36am Aortic valve stenosis acute Sep 11:36am Tachycardia acute September 29 11:36am Afib chronic September 29, 2024 11:36am COPD with acute exacerbation chronic September 29, 2024 11:36am Non-small cell lung cancer chronic September 29, 2024 11:36am Aortic valve stenosis acute [place] 2024 12:58pm Afib chronic November 03 12:58pm Benign essential hypertension chroni c November 03, 2024 12:58pm [facility] Work Phone: 1(907) 637-907606-06-2025 Evaluation note* Diagnosis Onset Date Resolution Status Admit Date Anxiety and depression acute [facility] 2024 11:36am Aortic valve stenosis acute Sep [...] acute exacerbation chronic December 26, 2024 8:00pm [facility] Work Phone: 1([phone]) 446-114206-06-2025 Evaluation note* Diagnosis Onset Date Resolution Status [...] acute exacerbation chronic December 26, 2024 8:00pm [facility] Work Phone: 1(954) 339-512106-06-2025 Evaluation note* Diagnosis Onset Date Resolution Status [...] Respiratory insufficiency inactive December 26, 2024 8:00pm [facility] Work Phone: 1(856) 450-824306-06-2025 Evaluation note* Diagnosis Onset Date Resolution Status Admit Date Aortic valve stenosis acute Kevin e 2024 11:36am Tachycardia acute September 29 11:36am Afib chronic September 29, 2024 11:36am Non-small cell lung cancer chronic September 29, 2024 11:36am Anxiety and depression inactive [place] 2024 11:36am COPD with acute exacerbation inactiv e September 29, 2024 11:36am Aortic valve stenosis acute [place] 2024 12:58pm Afib chronic November 03 12:58pm [...] 2025 10:04am Chronic anemia chronic January 10:04am [facility] Work Phone: 1([phone]) 170-585606-06-2025 Evaluation note* Diagnosis Onset Date Resolution Status [...] 025 10:04am Chronic anemia chronic January 10:04am [facility] Work Phone: 1(310) 173-115606-06-2025 Discharge summary Author Riley Jeff [facility] Note Date/Time September 29, 2024 4:33a [facility] Medical Records Department [address] [place] [address] Emergency Department Summary 09/29/24 MR#: [id number] Acct: [id number] Name: DENIA GONZALEZ Rep #:[id number] : 1955 69 From: Riley Jeff DO [...] Secondary to that she presents for evaluation [facility] Medical History RLS (restless legs [...] 78.5 H Lymph % (Auto) 13.2 L Lee % (Auto) 6.9 Eos % (Auto) 0.7 [...] of an acute cardiopulmonary abnormality. Reading Location: [facility] Chest x-ray as interpreted by the emergency medicine physician reveals no acute infiltrate pneumothorax or pleural effusion Management Discussion w/another healthcare provider: Hospitalist Discharge Plan Dx/Rx/DC Orders Clinical Impression: COPD with acute exacerbation, Benign essential hypertension, Anxiety and depression Disposition Disposition: [facility] What to do if you have Problems For any increased pain, shortness of breath, bleeding, nausea or vomiting, chestpain, or any unexpected problems, contact your Primary Care Provider. Call [facility] ([phone]) or report to the closest Emergency Room. Call 911 if necessary. 09/29/24 0433 <Electronically signed by Riley Jeff DO> Cosigner Signature (if applicable): CC: Dr. Yoseph Fall MD ~ Signed [facility] Work Phone: 1(839) 643-878106-06-2025 History and physical note Author Dionne Porter [facility] Note Date/Time September 29, 2024 4:32a m [facility] Medical Records Department [address] [place] [address] H&P Exam - Hospitalist 09/29/24 0403 MR#: [id number] Acct: [id number] Name: DENIA GONZALEZ Rep #:[id number] : 1955 69 From: Dionne Porter MD [...] allergic rhinitis, HTN who presents to the [facility] ED on 09/29/2024 with history of ~ [...] 78.5 H, Lymph % (Auto) 13.2 L, Lee % (Auto) 6.9, Eos % (Auto) 0.7, [...] of an acute cardiopulmonary abnormality. Reading Location: [id number] Assessment & Plan Assessment/Plan (1) COPD with acute exacerbation: PLAN: Plan The patient is a 69 y/o F w/ PMHx: GERD, RLS, Anxiety and Depression, Former tobacco use, Former EtOH Abuse, Hx Non-small cell lung cancer status post right lung lobectomy remotely 2003, COPD/Asthma with Chronic Hypoxic Respiratory Failure with allergic rhinitis, HTN who presents to the [facility] ED on 09/29/2024 with history of ~ [...] Code status. Charges/Coding Visit Charges Inpatient E&M: 94587 Init Hosp L3 09/29/24 0432 <Electronically signed by Dionne Porter MD> Cosigner Signature (if applicable): CC: Dr. Dionne Porter MD; Dr. Yoseph Fall MD~ Signed [facility] Work Phone: [phone]) 826-451606-06-2025 Discharge summary [facility] Medical Records Department [address] [place] [address] Emergency Department Summary 09/29/24 MR#: [id number] Acct: [id number] Name: DENIA GONZALEZ Rep #:[id number] : 1955 69 From: Riley Jeff DO [...] Secondary to that she presents for evaluation [facility] Medical History RLS (restless legs [...] 78.5 H Lymph % (Auto) 13.2 L Lee % (Auto) 6.9 Eos % (Auto) 0.7 [...] of an acute cardiopulmonary abnormality. Reading Location: [facility] Chest x-ray as interpreted by the emergency medicine physician reveals no acute infiltrate pneumothorax or pleural effusion Management Discussion w/another healthcare provider: Hospitalist Discharge Plan Dx/Rx/DC Orders Clinical Impression: COPD with acute exacerbation, Benign essential hypertension, Anxiety and depression Disposition Disposition: [facility] What to do if you have Problems For any increased pain, shortness of breath, bleeding, nausea or vomiting, chestpain, or any unexpected problems, contact your Primary Care Provider. Call [facility] ([phone]) or report tothe closest Emergency Room. Call 911 if necessary. 09/29/24 0433 Cosigner Signature (if applicable): CC: Dr. Yoseph Fall MD ~ Signed [facility]06-06-2025 History and physical note [facility] Medical Records Department [address] [place] [address] H&P Exam - Hospitalist 09/29/24 0403 MR#: [id number] Acct: [id number] Name: DENIA GONZALEZ Rep #:[id number] : 1955 69 From: Dionne Porter MD [...] allergic rhinitis, HTN who presents to the [facility] ED on 09/29/2024 with history of ~ [...] 78.5 H, Lymph % (Auto) 13.2 L, Lee % (Auto) 6.9, Eos % (Auto) 0.7, [...] of an acute cardiopulmonary abnormality. Reading Location: [id number] Assessment & Plan Assessment/Plan (1) COPD with acute exacerbation: PLAN: Plan The patient is a 69 y/o F w/ PMHx: GERD, RLS, Anxiety and Depression, Former tobacco use, Former EtOH Abuse, Hx Non-small cell lung cancer status post right lung lobectomy remotely 2003, COPD/Asthma with Chronic Hypoxic Respiratory Failure with allergic rhinitis, HTN who presents to the [facility] ED on 09/29/2024 with history of ~ [...] Code status. Charges/Coding Visit Charges Inpatient E&M: 32824 Init Hosp L3 09/29/24 0432 Cosigner Signature (if applicable): CC: Dr. Dionne Porter MD; Dr. Yoseph Fall MD~ Signed [facility]06-06-2025 Radiology Diagnostic study note [facility] Imaging Services [address] [place] [address] Chest PA and Lateral MR#: [id number] Acct: [id number] Name: DENIA GONZALEZ Rep #: [id number] : 1955 F 69 From: Yaquelin Lindquist MD PCP: Dr. Yoseph Fall MD Status: RE G ER Study:Chest PA and Lateral Date of Exam: 09/29/24 Exam# [id number] Ordering Dr: Silvia Jeff DO PROCEDURE: CHEST [...] Yoseph Fall MD; Riley Jeff DO ~ Dive Superintendent: Signed [facility]06-05-2025 Telephone encounter Note* Telephone Encounter - Yoseph Fall MD - 09/28/2024 4:57 PM EDT OK to refill as ordered Yoseph Fall MD [facility]06-05-2025 Miscellaneous Notes* Telephone Encounter - Yoseph [...] 28, 2024 4:34 PM documented [facility] encounter[facility] Telephone encounter Note * Telephone Encounter - Jduy Bliss RN - 09/28/2024 4:33 PM EDT [...] Bliss RN September 28, 2024 4:34 PM [facility]2025 Telephone encounter Note* Telephone Encounter - [...] 5 to 15 minutes Nelson Robert APRN.CNP [facility]2025 Miscellaneous Notes* Telephone Encounter - Nelson [...] 29, 2024 10:54 AM [facility]20[facility] Telephone encounter Note * Telephone Encounter [...] Elma Sarah August 29, 2024 10:54 AM [facility]04-22-2025 Telephone encounter Note* Telephone Encounter - [...] to 30 days. Authorizing Provider: NELSON ROBERT APRN.ENGINE MECHANIC [facility]04-22-2025 Miscellaneous Notes* Telephone Encounter - Nelson [...] 15, 2024 10:53 AM documented in this encounterGreene [facility]04-22-2025 Telephone encounter Note * Telephone Encounter [...] Hennessy LPN August 15, 2024 10:53 AM [facility]03-31-2025 Telephone encounter Note* Telephone Encounter - Magalie Anguiano RN - 07/24/2024 6:11 PM EDT Pt significant other Mike called and is notified of providers results and instructions. He voices understanding. Magalie Anguiano RN [facility]03-31-2025 Miscellaneous Notes* Telephone Encounter - Magalie [...] rash. He states the Pt has a flour tester that come in tomorrow and she [...] call and advise Pt. documented in this encounterGreene [facility] Hospital03-31-2025 Telephone encounter Note * Telephone Encounter - Yoseph Fall MD - 07/24/2024 5:08 PM EDT She may try taking 40 mg of prednisone (she has 10 mg tablets at home) for 3 days and see if this clears up the rash; sounds like an allergic reaction. Yoseph Fall MD [facility]03-31-2025 Telephone encounter Note* Telephone Encounter - [...] rash. He states the Pt has a flour tester that come in tomorrow and she could try and help the Pt with a VV. He states she usually does phone visits. I told him the provider may need to see the rash. Pt was wanting the provider to order an antibiotic for it. Mike states he knows a cream could probably be called in. Please call and advise Pt. [facility]03-19-2025 Telephone encounter Note* Telephone Encounter - Sukhi Marrero RN - 07/12/2024 2:47 PM EDT Jenni with [facility] calls to request chart notes to support patients need for continued oxygen. Most recent visits have all been distant health. Jenni requests most recent visit be faxed. Faxed to [phone] per request. Sukhi Marrero RN [facility]03-19-2025 Miscellaneous Notes* Telephone Encounter - Sukhi Marrero RN - 07/12/2024 2:47 PM EDT Jenni with [facility] calls to request chart notes to support patients need for continued oxygen. Most recent visits have all been distant health. Jenni requests most recent visit be faxed. Faxed to [phone] per request. Sukhi Marrero RN documented in this encounterGreene [facility] Hospital03-13-2025 History of Present illness Narrative* Yoseph [...] visit. Either the patient or their legal representative government relations has been informed of the risks and benefits of -- and alternatives to -- treatment through a remote evaluation andconsents to proceed with the evaluation remotely. Completing tele-health visit for routine follow up. Pt reports that she has a lady coming from [facility] tomorrow and asking what shots [...] at 2.5-3 L. Pain: Chronic back; taking Dora 5-325 mg 1 pill BID as needed. [...] (HCC) 04/26/2003 Lung cancer [place] ([place] infarction) ([facility]) 10-[address] [facility] "heart stopped" Obstructive chronic bronchitis with exacerbation ([facility]) COPD Other abnormal Papanicolaou smear of cervix [...] as directed. Dx: COPD J44.9 Nebulizer Accessories [facility] [place] [facility] Mask and supplies as needed PULSE OXIMETER [facility] Use as directed to check oxygen saturation level ammonium lactate (AMLACTIN) 12 % lotion Apply 1 application to affected area as needed for Dry Skin. losartan (COZAAR) 50 mg tablet Take 0.5 tablets by mouth once daily. OXYGEN, HOME THERAPY, 2.5 L/min by Nasal Cannula route continuous. Use as directred Disposable Gloves (DISPOSABLE LATEX-FREE GLOVES) [facility] 1 Box once every month. ICD 10: [...] No EXAM: [facility] 02/27/2005 Phone visit Health Maintenance List BP [...] Past Histories independently gathered by the clinical care support representative and the remaining scribed note accurately describes my personal service to the patient. 11-20 minutes of time spent on phone call Yoseph Fall MD The documentation for this note was completed by Martha Baca MA acting as scribe for Yoseph Fall MD. July 06, 2024 2:02 PM. Martha Baca MA documented in this encounterGreene [facility] Hospital03-13-2025 NoteHNO ID: [id number] Author: YOSEPH FALL MD Service: ? Author [...] visit. Either the patient or their legal representative government relations has been informed of the risks and benefits of -- and alternatives to -- treatment through a remote evaluation and consents to proceed with the evaluation remotely. Completing tele-health visit for routine follow up. Pt reports that she has a lady coming from [facility] tomorrow and asking what shots [...] at 2.5-3 L. Pain: Chronic back; taking Dora 5-325 mg 1 pill BID as needed. [...] (HCC) 04/26/2003 Lung cancer [place] ([place] infarction) ([facility]) 10-[address] [facility] "heart stopped" Obstructive chronic bronchitis with exacerbation ([facility]) COPD Other abnormal Papanicolaou smear of cervix [...] HISTORY Procedure Laterality Date CONIZATION CERVIX W/WO [facility] RPR ELTRD EXC 2003 Dr. Danis BRYSON [...] spasm. montelukast (SINGULAIR) (more content not included)...[facility] 06-22-2024 Telephone encounter Note* Telephone Encounter [...] Watson LPN June 22, 2024 10:53 AM [facility]02-27-2025 Miscellaneous Notes* Telephone Encounter - Brynn [...] 22, 2024 10:53 AM documented in this encounterGreene [facility] Hospital02-24-2025 Telephone encounter Note * Telephone Encounter - Yoseph Fall MD - 06/19/2024 12:48 PM EST OK to refill as ordered Yoseph Fall MD [facility]02-24-2025 Miscellaneous Notes* Telephone Encounter - Yoseph [...] 19, 2024 9:31 AM documented in this encounterGreene Memorial Hospital02-24-2025 Telephone encounter Note * Telephone Encounter [...] Mora LPN June 19, 2024 9:31 AM [facility]02-17-2025 Telephone encounter Note* Telephone Encounter - Martha Baca MA - 06/12/2024 3:39 PM EST Form completed and faxed back to information below. Martha Baca MA [facility]02-17-2025 Miscellaneous Notes* Telephone Encounter - Martha Baca MA - 06/12/2024 3:39 PM EST Form completed and faxed back to information below. Martha Baca MA * Telephone Encounter - Martha Baca MA - 06/12/2024 12:44 PM EST Type of form: Medical Necessity for incontinence supplies. Form received via fax When form is completed, Fax form to [phone] Form has been forwarded to Physician Desk: Dr. Eufemia Baca MA documented in this encounterGreene Memorial Hospital02-17-2025 Telephone encounter Note * Telephone Encounter - Martha Baca MA - 06/12/2024 12:44 PM EST Type of form: Medical Necessity for incontinence supplies. Form received via fax When form is completed, Fax form to [phone] Form has been forwarded to Physician Desk: Dr. Eufemia Baca MA [facility]02-07-2025 Telephone encounter Note* Telephone Encounter - Ban VillafanaLAURIE - 06/02/2024 8:11 AM EST Images from the original note were not included. Electronic PA rec'd and completed for cyclobenzaprine. This was denied. Note from payer: CaseId:[id number];Status:Denied;Review Type:Prior Auth;Appeal Information: Attention:ATTN: MEDICARE CLINICAL APPEALS [employer] [address] [address],[place], [place],[address] WebAddress:[email or web address]; Important - Please read the below note [...] for a decision on the appeal.; Payer: [employer] [phone] Electronic appeal: Supported View History Notes Time [...] to its destination. To be filled at: [facility] [address] [place] [address] [address] - [phone] [facility]02-07-2025 Miscellaneous Notes* Telephone Encounter - Ban Villafana LPN - 06/02/2024 8:11 AM EST Images from the original note were not included. Electronic PA rec'd and completed for cyclobenzaprine. This was denied. Note from payer: CaseId:[id number];Status:Denied;Review Type:Prior Auth;Appeal Information: Attention:ATTN: MEDICARE CLINICAL APPEALS [employer] [address] [address],[place], [place],[address] WebAddress:[email or web address]; Important - Please read the below note [...] for a decision on the appeal.; Payer: [employer] [phone] Electronic appeal: Supported View History Notes Time [...] to its destination. To be filled at: [facility] [address] [place] [id number] [address] - [phone] documented in this encounterGreene Memorial Hospital02-06-2025 Telephone encounter Note * Telephone Encounter - Yoseph Fall MD - 06/01/2024 3:18 PM EST OK to refill as ordered Yoseph Fall MD [facility]02-06-2025 Miscellaneous Notes* Telephone Encounter - Yoseph [...] 01, 2024 2:45 PM documented in this encounterGreene Memorial Hospital02-06-2025 Telephone encounter Note * Telephone Encounter [...] Gurrola RN June 01, 2024 2:45 PM [facility]01-21-2025 Telephone encounter Note* Telephone Encounter - Yoseph Fall MD - 05/16/2024 10:33 AM EST OK to refill as ordered Yoseph Fall MD [facility]01-21-2025 Miscellaneous Notes* Telephone Encounter - Yoseph [...] 16, 2024 10:31 AM documented in this encounterGreene Memorial Hospital01-21-2025 Telephone encounter Note * Telephone Encounter [...] Marrero RN May 16, 2024 10:31 AM [facility]01-21-2025 NotePatient Outreach (FAMPWS) DENIA GONZALEZ ([id number]) 1955 F Date Time Provider Department 05/16/24 YOSEPH FALL FAMPWS During your visit today, we recorded the following information about you: Allergies As of Date: 05/16/2024 (No Known Allergies) Date Reviewed: 04/07/2024 Reviewed by: Martha Baca MA - Fully Assessed Visit Diagnosis:Encounter for screening mammogram for breast cancer [Z12.31] Order(s):MICKIE SCREENING W RASHAUN [[id number]] Order #: [id number] FUTURE Prescriptions as of 06/16/2024 - cyclobenzaprine [...] directed. Dx: COPD J44.9 - Nebulizer Accessories [facility] Mask and supplies as needed - PULSE OXIMETER [facility] Use as directed to check oxygen saturation level - ammonium lactate (AMLACTIN) 12 % lotion Apply 1 application to affected area as needed for Dry Skin. - losartan (COZAAR) 50 mg tablet Take 0.5 tablets by mouth once daily. - OXYGEN, HOME THERAPY, 2.5 L/min by Nasal Cannula route continuous. Use as directred - Disposable Gloves (DISPOSABLE LATEX-FREE GLOVES) [facility] 1 Box once every month. ICD 10: [...] chronic bronchitis with exacerbatio* Encounter Status:Closed by [employer], MuzeekUSER on 06/16/24[facility] 04-10-2024 Telephone encounter Note* Telephone Encounter - Nelson Robert APRN.CNP - 04/10/2024 12:37 PM EST The following approved medication requests have been transmitted electronically. Requested Prescriptions Pending Prescriptions Disp Refills tiotropium (SPIRIVA) 18 mcg inhalation capsule 30 capsule 11 Sig: Inhale 1 capsule as instructed once daily. Nelson Robert APRN.CNP [facility]12-16-2024 Miscellaneous Notes* Telephone Encounter - Nelson [...] 10, 2024 12:21 PM documented in this encounterGreene Memorial Hospital12-16-2024 Telephone encounter Note * Telephone Encounter [...] Bliss RN April 10, 2024 12:21 PM [facility]12-13-2024 History of Present illness Narrative* Yoseph [...] visit. Either the patient or their legal representative government relations has been informed of the risks and benefits of -- and alternatives to -- treatment through a remote evaluation andconsents to proceed with the evaluation remotely. Tobacco - correction use of cigarettes, but is working very hard on cutting down. Notes increased usage due to stress. Dog recently , grand daughter in hospital. GI/Uro - Denies any stomach, bowel or urinary issues. GERD - Symptoms stable with use of Prilosec 20 mg once daily. Pain - Chronic back pain that is currently being treated with Dora 5-325 mg 1 tab po bid prn. [...] beagle of 14 years.Also notes granddaughter in [facility]. Trying to learn to live her [...] neoplasm of bronchus and lung, unspecified site ([facility]) 04/26/2003 [place] ([place]) ([facility]) 10-[address] [facility] "heart stopped" Obstructive chronic bronchitis with exacerbation ([facility]) COPD Other abnormal Papanicolaou smear of cervix [...] as directed. Dx: COPD J44.9 Nebulizer Accessories [facility] [place] Mask and supplies as needed PULSE OXIMETER [facility] Use as directed to check oxygen saturation level ammonium lactate (AMLACTIN) 12 % lotion Apply 1 application to affected area as needed for Dry Skin. losartan (COZAAR) 50 mg tablet Take 0.5 tablets by mouth once daily. OXYGEN, HOME THERAPY, 2.5 L/min by Nasal Cannula route continuous. Use as directred Disposable Gloves (DISPOSABLE LATEX-FREE GLOVES) [facility] 1 Box once every month. ICD 10: [...] Past Histories independently gathered by the clinical care support representative and the remaining scribed note accurately describes my personal service to the patient. 11-20 minutes of time spent on phone call Yoseph Fall MD The documentation for this note was completed by Martha Baca MA acting as scribe for Yoseph Fall MD. April 07, 2024 8:48 AM. Martha Baca MA documented in this encounterGreene Memorial Hospital12-13-2024 NoteHNO ID: [id number] Author: YOSEPH FALL MD Service: ? Author [...] visit. Either the patient or their legal representative government relations has been informed of the risks and benefits of -- and alternatives to -- treatment through a remote evaluation and consents to proceed with the evaluation remotely. 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 Notes increased usage due to stress. Dog recently , grand daughter in hospital. GI/Uro - Denies any stomach, bowel or urinary issues. GERD - Symptoms stable with use of Prilosec 20 mg once daily. Pain - Chronic back pain that is currently being treated with Dora 5-325 mg 1 tab po bid prn. [...] of 14 years. Also notes granddaughter in [facility]. Trying to learn to live her [...] [place] (my[place] infarction) (HCC) 10-[address] [facility] "heart stopped" Obstructive chronic bronchitis with exacerbation [...] Prior to Visit (more content not included)...[facility]11-27-2024 Telephone encounter Note* Telephone Encounter - Vickie Niño LPN - 03/22/2024 9:03 AM EST left message to notify patient that med has been sent into pharmacy. Vickie Niño LPN [facility]11-27-2024 Miscellaneous Notes* Telephone Encounter - Vickie [...] advise, Judy Bliss RN documented in this encounterGreene [facility]11-27-[facility]24 Telephone encounter Note * Telephone Encounter - Iman Person APRN.CNP - 03/22/2024 8:51 AM EST The following approved medication requests have been transmitted electronically. Requested Prescriptions Signed Prescriptions Disp Refills amoxicillin (AMOXIL) 875 mg tablet 20 tablet 0 Sig: Take 1 tablet by mouth two times a day for 10 days. Authorizing Provider: IMAN PERSON APRN.CNP [facility]11-26-2024 Telephone encounter Note* Telephone Encounter - [...] Please review and advise, Judy Bliss RN [facility]11-25-2024 Telephone encounter Note* Telephone Encounter - [...] 30 days. Authorizing Provider: NELSON ROBERT APRN.CNP [facility]11-25-2024 Miscellaneous Notes* Telephone Encounter - Nelson [...] 20, 2024 12:49 PM documented in this encounterGreene [facility] Hospital11-25-2024 Telephone encounter Note * Telephone Encounter [...] Marrero RN March 20, 2024 12:49 PM [facility]11-08-2024 Telephone encounter Note* Telephone Encounter - Nelson Robert APRN.CNP - 03/03/2024 11:53 AM EST The following approved medication requests have been transmitted electronically. Requested Prescriptions Pending Prescriptions Disp Refills predniSONE (DELTASONE) 10 mg tablet 30 tablet 5 Sig: Take 1.5 tablets by mouth every other day. Nelson Robert APRN.CNP [facility]11-08-2024 Miscellaneous Notes* Telephone Encounter - Nelson [...] last office visit in the department: 11/29/2023- [facility] Does the patient have a future office visit with this provider/department: No Visit date not found Requested Prescriptions Pending Prescriptions Disp Refills predniSONE (DELTASONE) 10 mg tablet 30 tablet 5 Sig: Take 1.5 tablets by mouth every other day. Judy Bliss RN March 03, 2024 11:23 AM documented in this encounterGreene [facility] Hospital11-08-2024 Telephone encounter Note * Telephone Encounter [...] last office visit in the department: 11/29/2023- [facility] Does the patient have a future office visit with this provider/department: No Visit date not found Requested Prescriptions Pending Prescriptions Disp Refills predniSONE (DELTASONE) 10 mg tablet 30 tablet 5 Sig: Take 1.5 tablets by mouth every other day. Judy Bliss RN March 03, 2024 11:23 AM [facility]10-21-2024 Telephone encounter Note* Telephone Encounter - [...] 15 minutes Authorizing Provider: NELSON ROBERT APRN.CNP [facility]10-21-2024 Miscellaneous Notes* Telephone Encounter - Nelson [...] 14, 2024 11:28 AM documented in this encounterGreene Memorial Hospital10-21-2024 Telephone encounter Note * Telephone Encounter [...] Watson LPN February 14, 2024 11:28 AM [facility]10-11-2024 Telephone encounter Note* Telephone Encounter - Lauren Duarte MA - 02/04/2024 8:25 AM EDT Pt informed, verbalized understanding. Lauren Duarte MA [facility]10-11-2024 Miscellaneous Notes* Telephone Encounter - Lauren [...] advise, Judy Bliss RN documented in this encounterGreene [facility] Hospital10-11-2024 Telephone encounter Note * Telephone Encounter - Yoseph Fall MD - 02/04/2024 8:16 AM EDT OK for amoxicillin as ordered. If she does not improve over the weekend she would need to be seen. Yoseph Fall MD [facility]10-10-2024 Telephone encounter Note* Telephone Encounter - [...] Please review and advise, Judy Bliss RN [facility]10-10-2024 Telephone encounter Note* Telephone Encounter - [...] EC for evaluation. Patient and daughter agreeable. [facility]10-10-2024 Miscellaneous Notes* Telephone Encounter - Martínez [...] Patient and daughter agreeable. documented in this encounterGreene Memorial Hospital09-24-2024 Telephone encounter Note * Telephone Encounter [...] 30 days. Authorizing Provider: NELSON ROBERT APRN.CNP [facility]09-24-2024 Miscellaneous Notes* Telephone Encounter - Nelson [...] 18, 2024 9:25 AM documented in this encounterGreene Memorial Hospital09-24-2024 Telephone encounter Note * Telephone Encounter [...] Marrero RN January 18, 2024 9:25 AM [facility]08-30-2024 Telephone encounter Note* Telephone Encounter - Yoseph Fall MD - 12/24/2023 9:48 AM EDT OK to refill as ordered Yoseph Fall MD [facility]08-30-2024 Miscellaneous Notes* Telephone Encounter - Yoseph [...] 24, 2023 9:26 AM documented in this encounterGreene [facility] Hospital08-30-2024 Telephone encounter Note * Telephone Encounter [...] Giovanna Carrillo December 24, 2023 9:26 AM [facility] Work Phone: 1(378) 404-606708-05-2024 History of Present illness Narrative* Yoseph Fall [...] visit. Either the patient or their legal representative government relations has been informed of the risks and [...] Pain: Chronic pain; is being weaned off Dora 5-325 mg down to#32/month, taking 1 pill BID prn. Also uses Flexeril 10 mg BID prn. Worried pain will not be controlled on anything less than 2 norco perday. At times pain gets bad, having to use Tylenol. Wishes her Dora would be increased. GERRY/Depression: Stable, still has [...] [place] (myocardial infarction) (HCC) 10-[address] [facility] "heart stopped" Obstructive chronic bronchitis with exacerbation [...] as directed. Dx: COPD J44.9 Nebulizer Accessories [place] [facility] Mask and supplies as needed PULSE OXIMETER [facility] Use as directed to check oxygen saturation level ammonium lactate (AMLACTIN) 12 % lotion Apply 1 application to affected area as needed for Dry Skin. losartan (COZAAR) 50 mg tablet Take 0.5 tablets by mouth once daily. OXYGEN, HOME THERAPY, 2.5 L/min by Nasal Cannula route continuous. Use as directred Disposable Gloves (DISPOSABLE LATEX-FREE GLOVES) [facility] 1 Box once every month. ICD 10: [...] call Yoseph Fall MD documented in this encounterGreene Memorial Hospital07-23-2024 Telephone encounter Note * Telephone Encounter - Yoseph Fall MD - 11/16/2023 1:32 PM EDT OK to refill as ordered Yoseph Fall MD [facility]07-23-2024 Miscellaneous Notes* Telephone Encounter - Yoseph [...] 16, 2023 12:02 PM documented in this encounterGreene Memorial Hospital07-23-2024 Telephone encounter Note * Telephone Encounter [...] Marrero RN November 16, 2023 12:02 PM [facility]07-15-2024 Telephone encounter Note* Telephone Encounter - [...] drug. This restriction has been approved by [facility]. This restriction only applies to patients greater [...] this decision on the coverage criteria for: [address]3 EDG[place] Standard MEDD Prior Authorization Policy - HIGH RISK MEDICATIONS - CYCLOBENZAPRINE [facility]07-15-2024 Miscellaneous Notes* Telephone Encounter - Ban [...] drug. This restriction has been approved by [facility]. This restriction only applies to patients greater [...] this decision on the coverage criteria for: [address]61 [place] Standard MEDD Prior Authorization Policy - HIGH RISK MEDICATIONS - CYCLOBENZAPRINE documented in this encounterGreene Memorial Hospital07-12-2024 Telephone encounter Note * Telephone Encounter - Iman Person APRN.CNP - 11/05/2023 12:07 PM EDT The following approved medication requests have been transmitted electronically. Requested Prescriptions Pending Prescriptions Disp Refills cyclobenzaprine (FLEXERIL) 10 mg tablet 60 tablet 0 Sig: Take 1 tablet by mouth two times a day as needed for muscle spasm. Iman Person APRN.AUSTIN [facility]07-12-2024 Miscellaneous Notes* Telephone Encounter - Iman [...] 05, 2023 11:51 AM documented in this encounterGreene Memorial Hospital07-12-2024 Telephone encounter Note * Telephone Encounter [...] Mora LPN November 05, 2023 11:51 AM [facility]06-28-2024 Telephone encounter Note* Telephone Encounter - Brynn Watson LPN - 10/22/2023 2:21 PM EDT Phoned patient and went over notes from Dr Fall with understanding. Aware rx sent to pharmacy. [facility]06-28-2024 Miscellaneous Notes* Telephone Encounter - Brynn [...] Notify pt with providers decision. [facility]ses [facility]. Naima Haines MA * Telephone Encounter [...] with cough. Please advise. documented in this encounterGreene Memorial Hospital06-28-2024 Telephone encounter Note * Telephone Encounter - Yoseph Fall MD - 10/22/2023 2:14 PM EDT OK for another Zpak as ordered Yoseph Fall MD [facility]06-28-2024 Telephone encounter Note* Telephone Encounter - Naima Haines MA - 10/22/2023 1:09 PM EDT No fevers. She is coughing a little bit. The congestion has mostly cleared. She did get some improvement with the zpak she was given but doesn't feel that the infection is completely resolved. Please advise. Notify pt with providers decision. [facility]ses [facility]. Naima Haines MA [facility]06-28-2024 Telephone encounter Note* Telephone Encounter - Naima Haines MA - 10/22/2023 11:54 AM EDT Tried to reach pt, line picks up, can hear back ground noise but no one says anything. Will try again later. Naima Haines MA [facility]06-28-2024 Telephone encounter Note* Telephone Encounter - Yoseph Fall MD - 10/22/2023 11:47 AM EDT Did she get any better with the Zpak she was given in the ER? If so I would consider refill of that. If it did not help would use a different antibiotic. Yoseph Fall MD [facility]06-28-2024 Telephone encounter Note* Telephone Encounter - Naima Haines MA - 10/22/2023 10:26 AM EDT ER report attached. Scan on 10/18/2023 6:02 AM by Provider, MARY Howe: Consultation - Emergency Medicine [facility]06-28-2024 Telephone encounter Note* Telephone Encounter - Shira Velez - 10/22/2023 10:18 AM EDT Pt has requested that an antibiotic is called in for her. States she was just seen in the EmergencyRoom last week, however; is still having a discolored mucus with cough. Please advise. [facility]06-24-2024 Miscellaneous Notes* Telephone Encounter - Yoseph [...] 18, 2023 9:49 AM documented in this encounterGreene Memorial Hospital06-24-2024 Telephone encounter Note * Telephone Encounter - Yoseph Fall MD - 10/18/2023 12:10 PM EDT OK to refill as ordered Yoseph Fall MD [facility]06-24-2024 Telephone encounter Note* Telephone Encounter - [...] Louie RN October 18, 2023 9:49 AM [facility]06-07-2024 Telephone encounter Note* Telephone Encounter - Naima Haines MA - 10/01/2023 1:48 PM EDT The following approved medication requests have been transmitted electronically. Requested Prescriptions Signed Prescriptions Disp Refills tiZANidine (ZANAFLEX) 4 mg tablet 90 tablet 5 Sig: Take 1 tablet by mouth every 8 hours as needed (muscle spasms). Authorizing Provider: YOSEPH FALL MA [facility]06-07-2024 Miscellaneous Notes* Telephone Encounter - Naima [...] Marrero RN - 10/01/2023 11:53 AM EDT Jlmihgmq-Jc-Kzs calls to ask if provider would send in a different prescription than flexeril d/t having to pay for medication. Recommended contacting insurance to see what medication is covered and it was requested to just send something in as they can never get a hold of anyone at the insurance company. Pharmacy is [facility] Marrero RN documented in this encounterGreene Memorial Hospital06-07-2024 Telephone encounter Note * Telephone Encounter - Yoseph Fall MD - 10/01/2023 1:29 PM EDT OK for zanaflex as ordered Yoseph Fall MD [facility]06-07-2024 Telephone encounter Note* Telephone Encounter - Sukhi Marrero RN - 10/01/2023 11:53 AM EDT Wdfpgdrf-Ki-Aoj calls to ask if provider would send in a different prescription than flexeril d/t having to pay for medication. Recommended contacting insurance to see what medication is covered and it was requested to just send something in as they can never get a hold of anyone at the insurance company. Pharmacy is [facility] Marrero RN [facility]05-29-2024 Telephone encounter Note* Telephone Encounter - [...] 5 to 15 minutes Nelson Robert APRN.CNP [facility]05-29-2024 Miscellaneous Notes* Telephone Encounter - Nelson [...] Thank you. Louisa Nobles. documented in this encounterGreene Memorial Hospital05-29-2024 Telephone encounter Note * Telephone Encounter [...] 11/23/2023 Please advise. Thank you. Louisa Nobles. [facility]05-23-2024 Telephone encounter Note* Telephone Encounter - Yoseph Fall MD - 09/16/2023 8:11 AM EDT OK to refill as ordered Yoseph Fall MD [facility]05-23-2024 Miscellaneous Notes* Telephone Encounter - Yoseph [...] Thank you. Louisa Nobles. documented in this encounterGreene Memorial Hospital05-22-2024 Telephone encounter Note * Telephone Encounter - Iman Person APRN.CNP - 09/15/2023 7:09 PM EDT The following approved medication requests have been transmitted electronically. Requested Prescriptions Pending Prescriptions Disp Refills fluticasone (FLONASE) 50 mcg/actuation nasal spray 48 g 11 Sig: use 2 sprays in each nostril daily. Rinse mouth after use Iman Person APRN.CNP [facility]05-22-2024 Miscellaneous Notes* Telephone Encounter - Iman [...] you. Essie Medina RN. documented in this encounterGreene Memorial Hospital05-22-2024 Telephone encounter Note * Telephone Encounter [...] 11/23/2023 Please advise. Thank you. Louisa Nobles. [facility]05-22-2024 Telephone encounter Note* Telephone Encounter - [...] Please advise. Thank you. Essie Medina RN. [facility]04-29-2024 History of Present illness Narrative* Yoseph [...] visit. Either the patient or their legal representative government relations has been informed of the risks and [...] daily. Pain: uses Flexeril 10 mg daily, Dora 5-325 mg 1 pill BID prn, taking [...] [place] ([place] infarction) (HCC) 10-[address] [facility] "heart stopped" Obstructive chronic bronchitis with exacerbation [...] as directed. Dx: COPD J44.9 Nebulizer Accessories [facility] Mask and supplies as needed rOPINIRole (REQUIP) 0.25 mg tablet Take 1 tablet by mouth daily at bedtime. PULSE OXIMETER [facility] Use as directed to check [...] as directred Disposable Gloves (DISPOSABLE LATEX-FREE GLOVES) [facility] 1 Box once every month. ICD 10: [...] Past Histories independently gathered by the clinical care support representative and the remaining scribed note accurately describes my personal service to the patient. 11-20 minutes of time spent on phone call Yoseph Fall MD The documentation for this note was completed by Naima Haines MA acting as scribe for Yoseph Fall MD. August 23, 2023 2:19 PM. Naima Haines MA documented in this encounterGreene Memorial Hospital04-02-2024 Miscellaneous Notes* Telephone Encounter - Yoseph [...] you. Brynn Watson LPN. documented in this encounterGreene Memorial Hospital04-01-2024 History of Present illness Narrative* Yoseph [...] visit. Either the patient or their legal representative government relations has been informed of the risks and [...] for hospital follow up. Pt admitted into [facility] on 07/20/23 and discharged on 07/22/23. Overall [...] days. Nicorette 2 mg gum, states her Vfkgjyaz-ku-usu was picking this up today. SUMMARY: -Pt discharged from [facility] on 07/22/23. Pt admitted on 07/20/23. -Admitted [...] anxiety, GERD and OA who presents to [facility] ER complaining of shortness of breath, wheezing [...] acute exacerbation of COPD withclinical evidence of lfgyx-me-fplekeg hypoxic respiratory insufficiency likely due to recent [...] enlargement Borderline ECG Confirmed by Junito Madrid ([id number]), editor school photograph MAGALIE RAMIREZ ([id number]) on 07/20/2023 1:47:04 PM Chest XR 07/20/23: [...] KB 30 S Records were obtained from [employer] Everywhere for continuity of care. VIDEO EXAMINATION [...] call Yoseph Fall MD documented in this encounterGreene Memorial Hospital04-01-2024 History of Present illness Narrative* Martha Baca MA - 07/26/2023 10:20 AM EDT TRANSITION CARE MANAGEMENT (TCM) INITIAL CONTACT [employer] Outreach Provider Action/FYI: Pt reports that [...] of Discharge 07/22/2023 SUMMARY: -Pt discharged from [facility] on 07/22/23. Pt admitted on 07/20/23. -Admitted [...] anxiety, GERD and OA who presents to [facility] ER complaining of shortness of breath, wheezing [...] acute exacerbation of COPD withclinical evidence of dvmas-pi-sxsneck hypoxic respiratory insufficiency likely due to recent [...] enlargement Borderline ECG Confirmed by Junito Madrid ([id number]), editor school photograph MAGALIE RAMIREZ ([id number]) on 07/20/2023 1:47:04 PM Chest XR 07/20/23: [...] KB 30 S Records were obtained from [facility] Everywhere for continuity of care. Do you [...] Yes Medical records from recent hospitalization: Care Everywhere/[facility] records Martha Baca MA documented in this encounterGreene Memorial Hospital03-28-2024 Discharge summary Author Jan Bolanos [facility] July 22, 2023 4:12pm Note Date/Time July 22, 2023 4:0 4pm [facility] Medical Records Department [address] [place] [address] Instructions for Home/Discharge Instructions 07/22/23 1603 MR#: [id number] Acct: [id number] Name: DENIA GONZALEZ Rep #:[id number] : 1955 68 From: Jan brennan MD [...] DO; Dr. Yoseph Fall MD ~ Signed [facility] Work Phone: 1(833) 505-691503-28-2024 Discharge summary Author Jan Bolanos [facility] July 22, 2023 4:18pm Note Date/Time July 22, 2023 4:1 7pm [facility] Medical Records Department [address] [place] [address] Discharge Summary 07/22/231611 MR#: [id number] Acct: [id number] Name: DENIA GONZALEZ Rep #:[id number] : 1955 68 From: Jan brennan MD PCP: Dr. Yoseph Fall MD Status:AD IN Location: [place] [address] Providers Date of Admission: 07/20/23 Primary Care Physician: Dr. Yoseph Fall MD Reason For Visit: ACUTE EXACERBATION OF COPD WITH [id number]-[id number] Diagnosis Discharge Diagnosis (1) COPD with acute [...] anxiety, GERD and OA who presents to [facility] ER complaining of shortness of breath, wheezing [...] exacerbation of COPD with clinical evidence of yyitw-gr-qorvqqf hypoxic respiratory insufficiency likely due to recent [...] Self Care Charges/Coding Visit Charges Inpatient E&M: 65876 Disch Hosp >30min 07/22/23 1618 <Electronically signed by Jan Bolanos MD> Cosigner Signature (if applicable): CC: Dr. Yoseph Fall MD; Dr. Jan Bolanos MD~ Signed [facility] Work Phone: 1(550) 694-592203-28-2024 Progress note Author Jan [facility] July 22, 2023 11:02am Note Date/Time July 22, 2023 11: 02am [facility] Medical Records Department [address] [place] [address] Progress Note - Hospitalist 07/22/23 1101 MR#: [id number] Acct: [id number] Name: DENIA GONZALEZ Rep #:[id number] : 1955 68 From: Jan brennan MD PCP: Dr. Yoseph Fall MD Status:AD M [place] [facility] Subjective Subjective Doing well, feels like she [...] DVT: Lovenox Charges/Coding Visit Charges Inpatient E&M: 08679 Subs Hosp L2 07/22/23 1102 <Electronically signed by Jan Bolanos MD> Cosigner Signature (if applicable): CC: ~ Signed [facility] Work Phone: 1(759) 757-932203-27-2024 Progress note Author Jan Bolanos [facility] July 21, 2023 10:28am Note Date/Time July 21, 2023 10: 25am [facility] Medical Records Department [address] [place] [address] Progress Note - Hospitalist 07/21/23 1013 MR#: [id number] Acct: [id number] Name: DENIA GONZALEZ Rep #:[id number] : 1955 68 From: Jan brennan MD PCP: Dr. Yoseph Fall MD Status:AD M IN Location: [place] HN867-7 Subjective Subjective She feels about the same [...] 88.1 H, Lymph % (Auto) 8.8 L, Lee %(Auto) 2.7, Eos % (Auto) 0.0, Baso [...] DVT: Lovenox Charges/Coding Visit Charges Inpatient E&M: 33403 Subs Hosp L2 07/21/23 1028 <Electronically signed by Jan Bolanos MD> Cosigner Signature (if applicable): CC: ~ Signed [facility] Work Phone: 1(926) 153-653303-26-2024 Discharge summary Author Dallas Mena [facility] July 20, 2023 6:49am Note Date/Time July 20, 2023 3:0 9am [facility] Medical Records Department [address] [place] [address] Emergency Department Summary 07/20/23 MR#: [id number] Acct: [id number] Name: DENIA GONZALEZ Rep #:[id number] : 1955 68 From: Dallas Mena MD PCP: Dr. Yoseph Fall MD Status:AD M IN Location: [place] [address] HPI History of Present Illness Chief Complaint: [...] % (Auto) 67.5 Lymph % (Auto) 23.7 Lee % (Auto) 7.6 Eos % (Auto) 0.6 [...] and wheezing. Disposition Disposition: Acute Care Hospital [facility] What to do if you have Problems For any increased pain, shortness of breath, bleeding, nausea or vomiting, chestpain, or any unexpected problems, contact your Primary Care Provider. Call [facility] ([phone]) or report to the closest Emergency Room. Call 911 if necessary. 07/20/23 0649 <Electronically signed by Dallas Mena MD> Cosigner Signature (if applicable): CC: Dr. Yoseph Fall MD ~ Signed [facility] Work Phone: 1(173) 515-213703-26-2024 Miscellaneous Notes* Telephone Encounter - Martha Baca MA - 07/20/2023 8:40 AM EDT Pt currently admitted into [facility] due to symptoms. Martha Baca MA * [...] advise. Jennifer Hennessy LPN documented in this encounterGreene Memorial Hospital03-26-2024 History and physical note Author José Smith [facility] July 20, 2023 4:55am Note Date/Time July 20, 2023 4:2 4am [facility] Medical Records Department [address] [place] [address] H&P Exam - Hospitalist 07/20/23 0406 MR#: [id number] Acct: [id number] Name: DENIA GONZALEZ Rep #:[id number] : 1955 68 From: José Abebe DO PCP: Dr. Yoseph Fall MD Status:AD M IN Location: [facility] BC880-3 HPI - General General Date of Admission: [...] anxiety, GERD and OA who presents to [facility] ER complaining of shortness of breath, wheezing [...] exacerbation of COPD with clinical evidence of jtkxj-lk-odupnlq hypoxic respiratory insufficiency likely due to recent viral URI in the setting of ongoing tobacco abuse and she was then admitted to the general medical floor forongoing care for stay that is expected to be greater than 48 hours. [facility] Home Medications albuterol sulfate 90 [...] % (Auto) 67.5, Lymph % (Auto) 23.7, Lee% (Auto) 7.6, Eos % (Auto) 0.6, Baso [...] needed nebulizers. Give Tylenol as needed for nadr-zg-swpcsuly(level 1- 5/10) pain or fever. Continue Percocet prn for severe (level 6-10/10) pain. Tobacco cessation will be strongly encouraged with nicotine patch offeredto control cravings. 2. Viral URI likely triggering #1 - Check viral respiratory panel and placed oncontact and droplet precautions until confirmed negative. 3. Meljx-di-iepaknq hypoxic respiratory insufficiency arising from #1 & [...] 55 minutes. Charges/Coding Visit Charges Inpatient E&M: 29789 Init Hosp L2 07/20/23 8575 <Electronically signed by José Cunningham DO> Cosigner Signature (if applicable): CC: Dr. José Cunningham DO; Dr. Yoseph Fall MD~ Signed [facility] Work Phone: 1(940) 600-409103-04-2024 Miscellaneous Notes* Telephone Encounter - Yoseph Fall MD - 06/28/2023 3:59 PM EST OK to refill as ordered Yoseph Fall MD documented in this encounterGreene [facility] Hospital02-22-2024 Miscellaneous Notes* Telephone Encounter - Naima [...] [facility] at [phone]. Route to [place] when form completed for processing documented in this encounterGreene Memorial Hospital02-21-2024 Miscellaneous Notes* Telephone Encounter - Meenu [...] PA cmpleted for tiotropium alina GONZALEZ ([place]: [id number]) - [id number] Spiriva HandiHaler 18MCG capsules Status: PA Request Created: June 11, 2023 [id number] Sent: June 14, 2023 documented in this encounterGreene Memorial Hospital02-20-2024 Miscellaneous Notes* Telephone Encounter - Martha [...] call pt with reply. documented in this encounterGreene Memorial Hospital02-16-2024 Miscellaneous Notes* Telephone Encounter - Yoseph [...] you. Brynn Watson LPN. documented in this encounterGreene Memorial Hospital12-05-2023 Miscellaneous Notes* Telephone Encounter - Padmini Abbott RN - 03/30/2023 4:17 PM EST Pt's significant other, Mike Gregg calling. Requesting PCP office to fax orders for pt's nebulizer ,compressor and accessories to [facility] at FAX #: [phone], along with recent OV note. States pt receives other equipment from them and they would like to use their services. States they have not heard from [facility] when orders were originally faxed to them. Faxed as requested. Padmini Abbott RN documented in this encounterGreene Memorial Hospital11-22-2023 Miscellaneous Notes* Telephone Encounter - Roxanna [...] you. Roxanna Tineo LPN. documented in this encounterGreene Memorial Hospital10-27-2023 Instructions* Patient Instructions* Martha Baca Ma - 02/19/2023 2:31 PM EDT Check with [facility] [employer] on RSV vaccine. documented in this encounterGreene Memorial Hospital10-27-2023 History of Present illness Narrative* Yoseph [...] is currently being weaned down on her Dora 5-325 mg, concerned about going any lower as she doesn't think her pain will be controlled. She is taking Dora 5-325 mg 1 pill bid prn, getting #33/month, and Flexeril 10 mg BID prn. Dora was decreased last visit from #35/month to [...] Agreeable to Flu shot today. Reports her [facility], may be able to give her the [...] [place] (my[place] infarction) (HCC) 10-[address] [facility] [place] "heart stopped" Obstructive chronic bronchitis with exacerbation [...] instructed every 4 hours asneeded. PULSE OXIMETER [facility] Use as directed to check [...] as directed. Dx: COPD J44.9 Nebulizer Accessories [facility] Mask and supplies as needed Jwgydzlekwbql-UN-wpdeJQSkqft (MUCINEX FAST-MAX CONGEST-COUGH) 2.5-5-100 mg/5 mL liqd Take 10 mL by mouth three times daily as needed. OXYGEN, HOME THERAPY, 2.5 L/min by Nasal Cannula route continuous. Use as directred Disposable Gloves (DISPOSABLE LATEX-FREE GLOVES) [facility] 1 Box once every month. ICD 10: [...] medication regimen. - Send Nebulizer supplies to [facility] 8. Gastroesophageal reflux disease, unspecified whether esophagitis present - ICD9: 530.81, ICD10: K21.9 - Stable - Continue current medication regimen. 9. Chronic obstructive pulmonary disease, unspecified COPD type ([facility]) - ICD9: 496, ICD10: J44.9 [...] Past Histories independently gathered by the clinical care support representative and the remaining scribed note accurately describes [...] PM. Martha Baca Ma documented in this encounterGreene Memorial Hospital09-22-2023 Miscellaneous Notes* Telephone Encounter - Nelson [...] you. Sukhi Marrero, RN documented in this encounterGreene Memorial Hospital09-05-2023 Miscellaneous Notes* Telephone Encounter - Nelson [...] 12/29/2022 12:32 PM EDT [facility] Patient has been identified by [...] advise. Mercedez Foster Pss documented in this encounterGreene Memorial Hospital08-17-2023 Miscellaneous Notes* Telephone Encounter - Meenu Hanks LPN - 12/10/2022 3:29 PM EDT Pt notfied Meenu Hanks LPN * Telephone Encounter - Yoseph Fall MD - 12/10/2022 2:38 PM EDT Order filed Yoseph Fall MD * Telephone Encounter - Brynn Watson LPN - 12/10/2022 12:09 PM EDT Patient daughter calling mother had sent to her to pickling solution maker stool sample, no order in computer. Computer shows at last office visit Dr was asking patient if she would do IFOBT and no order was put in the computer. Pending order needs diagnosis. Call patient when order in place so can pickling solution maker kit. Please advise documented in this encounterGreene Memorial Hospital07-14-2023 Miscellaneous Notes* Telephone Encounter - Nelson [...] has one pill left. documented in this encounterGreene Memorial Hospital05-09-2023 Miscellaneous Notes* Telephone Encounter - Michelle [...] them run with specific NDC code. NDC: [id number] NDC: [id number] Called [facility]ary ann and they ran medication [...] PAover the phone with rep PA # [id number] Michelle Alvarez Ma * Telephone Encounter - Michelle Alvarez Ma - 08/21/2022 3:46 PM EDT PA have never been completed for either med which needs done first before appeal letter. Completed Electronic PA for Advair was approved and verified with [employer] through. Tried calling patientbut no answer and vm full. PA completed through covermymeds for flexeril [place]: [id number] Michelle Alvarez Ma * Telephone Encounter - [...] know the fax number. Patient's insurance is [employer]. Asked patient what the phone number was [...] calling: self Call patient at: at home [phone] (home) [phone] (cell) Was an appointment scheduled: No Closing statement: Results or non-symptom based questions: Thank you for calling [facility], your call will be returned within the next business day. Orly Stacy documented in this encounterGreene Memorial Hospital03-10-2023 Miscellaneous Notes* Telephone Encounter - Naima [...] [facility] at [phone]. Route to [place] when form completed for processing documented in this encounterGreene Memorial Hospital03-06-2023 Miscellaneous Notes* Telephone Encounter - Nelson [...] notify patient. Orly Stacy documented in this encounterGreene Memorial Hospital02-13-2023 Miscellaneous Notes* Telephone Encounter - Nelson [...] you. Essie Medina RN documented in this encounterGreene Memorial Hospital01-20-2023 Miscellaneous Notes* Telephone Encounter - Yoseph [...] Date of Last Labs: documented in this encounterGreene Memorial Hospital01-10-2023 Miscellaneous Notes* Telephone Encounter - Nelson [...] notify patient. Fawn Carrillo documented in this encounterGreene Memorial Hospital01-06-2023 History of Present illness Narrative* Yoseph [...] is currently being weaned down on her Dora 5-325 mg. Does not think shecan go any lower on the Dora. Pt on current regimen of Dora 5-325 mg taking 1 tab po bid [...] [place] ([place]) 10-[address] [facility] "heart stopped" Obstructive chronic bronchitis with exacerbation [...] instructed every 4 hours asneeded. PULSE OXIMETER [facility] Use as directed to check [...] Accessories mis Mask and supplies as needed Stavvrdulskxz-VG-kkqaDZJnpcc (MUCINEX FAST-MAX CONGEST-COUGH) 2.5-5-100 mg/5 mL liqd Take 10 mL by mouth three times daily as needed. OXYGEN, HOME THERAPY, 2.5 L/min by Nasal Cannula route continuous. Use as directred Disposable Gloves (DISPOSABLE LATEX-FREE GLOVES) [facility] 1 Box once every month. ICD 10: [...] Past Histories independently gathered by the clinical care support representative and the remaining scribed note accurately describes my personal service to the patient. 5-10 minutes of time spent on phone call Yoseph Fall MD The documentation for this note was completed by Naima Haines Ma acting as scribe for Yoseph Fall MD. May 01, 2022 2:41 PM. Naima Haines Ma documented in this encounterGreene Memorial Hospital12-27-2022 Miscellaneous Notes* Telephone Encounter - Yoseph [...] up with PCP please. documented in this encounterGreene Memorial Hospital11-04-2022 Miscellaneous Notes* Telephone Encounter - Falguni [...] file order for oxygen and fax to [facility] in [place]. This nurse does not see order in computer and it appears PCP has ordered oxygen in the past. Please call patient at [phone] when this has been completed or if there are any issues. documented in this encounterGreene Memorial Hospital10-28-2022 Procedure note* MUNA Cutler - 02/20/2022 [...] TIME: 1:25 PM Comment: documented in this encounterGreene Memorial Hospital10-28-2022 History of Present illness Narrative* MUNA Cutler - 02/20/2022 1:22 PM EDT PULM FUNCTION SMARTBLOCK: Provider: Michelle Guzmán MD Assisting Tech: MUNA Cutler Oximetry - Ambulation: 1 documented in this encounterGreene Memorial Hospital09-27-2022 Miscellaneous Notes* Telephone Encounter - Nelson [...] notify patient. Fina Carrillo documented in this encounterGreene Memorial Hospital09-15-2022 Miscellaneous Notes* Telephone Encounter - Falguni Patton LPN - 01/08/2022 8:39 AM EDT Noted, thank you! Falguni Patton LPN * Telephone Encounter - Mini Pineda RN - 01/08/2022 8:31 AM EDT Bettie with [facility] calling in. [facility] pt. needs to re-qualify for home O2. Pt. has not seen a Insole Beveler for a while (former pt. of Dr. Huertas). This nurse instructed Bettie to have pt.call to set up consult/ appt with Dr. Guzmán. Bettie will do so. Mini Pineda, RN documented in this encounterGreene Memorial Hospital08-25-2022 Miscellaneous Notes* Telephone Encounter - Naima Haines Ma - 12/18/2021 9:49 AM EDT Tried to notify pt of decrease in number of pills, VM full. Naima Haines Ma * Telephone Encounter - Yoseph Fall MD - 12/18/2021 9:07 AM EDT OK to refill as ordered Taper down to #35 pills/month Yoseph Fall MD * Telephone Encounter - Martínez Luoie RN - 12/18/2021 8:48 AM EDT Patient [...] you. Martínez Louie RN documented in this encounterGreene Memorial Hospital07-25-2022 Miscellaneous Notes* Telephone Encounter - Nelson [...] patient. Denia Ariza Pss documented in this encounterGreene Memorial Hospital06-24-2022 History of Present illness Narrative* Yoseph [...] is currently being weaned down on her Dora 5-325 mg. Pt on current regimen of Dora 5-325 mg taking 1 tab po bid [...] Generalized osteoarthrosis, involving multiple sites Osteoarthritis - rneee. hands, knees Malignant neoplasm of bronchus and lung, unspecified site 2003 Lung cancer [place] (my[place] infarction) (HCC) 10-[address] [facility] "heart stopped" Obstructive chronic bronchitis with exacerbation [...] as needed for muscle spasm. PULSE OXIMETER [facility] Use as directed to check [...] as directed. Dx: COPD J44.9 Nebulizer Accessories [facility] Mask and supplies as needed Kaeiwkwzspjvs-JM-yqemGSRvdqd (MUCINEX FAST-MAX CONGEST-COUGH) 2.5-5-100 mg/5 mL liqd Take 10 mL by mouth three times daily as needed. OXYGEN, HOME THERAPY, 2.5 L/min by Nasal Cannula route continuous. Use as directred Disposable Gloves (DISPOSABLE LATEX-FREE GLOVES) [facility] 1 Box once every month. ICD 10: [...] Past Histories independently gathered by the clinical care support representative and the remaining scribed note accurately describes my personal service to the patient. Yoseph Fall MD The documentation for this note was completed by Naima Haines Ma acting as scribe for Yoseph Fall MD. October 17, 2021 2:02 PM. Naima Haines Ma documented in this encounterGreene Memorial Hospital06-07-2022 Miscellaneous Notes* Telephone Encounter - Naima [...] you. Mikayla Mora LPN documented in this encounterGreene Memorial Hospital05-23-2022 Miscellaneous Notes* Telephone Encounter - Yoseph [...] patient. Jennifer Hennessy LPN documented in this encounterGreene Memorial Hospital05-04-2022 Miscellaneous Notes* Telephone Encounter - Nelson [...] provider send a new prescription to [facility]. Pharmacy won't fill current prescription. Date [...] you. Sukhi Marrero RN documented in this encounterGreene Memorial Hospital04-25-2022 Miscellaneous Notes* Telephone Encounter - Naima [...] you. Padmini Abbott RN documented in this encounterGreene Memorial Hospital03-07-2017 History of Past illness Narrative* Problem [...] done as it will not foreign exchange services manager (same duration of ABx treatment) Cholelithiasis with [...] 06/24/2016 - Decreased Flatulence - [facility] at [place] [facility] was normal (report available only) Plan: [...] of this encounter (statuses as of 08/01/2021) [place] [address]-07-2017 History of Past illness Narrative* Problem Noted [...] done as it will not foreign exchange services manager (same duration of ABx treatment) Cholelithiasis with [...] 06/24/2016 - Decreased Flatulence - [facility] at [place] [facility] was normal (report available only) Plan: [...] of this encounter (statuses as of 08/18/2021) [facility] of Past illness Narrative* Problem [...] done as it will not foreign exchange services manager (same duration of ABx treatment) Cholelithiasis with [...] 06/24/2016 - Decreased Flatulence - [facility] at [place] [facility] was normal (report available only) Plan: [...] of this encounter (statuses as of 08/27/2021) [facility] of Past illness Narrative* Problem [...] done as it will not foreign exchange services manager (same duration of ABx treatment) Cholelithiasis with [...] 06/24/2016 - Decreased Flatulence - [facility] at [place] [facility] was normal (report available only) Plan: [...] of this encounter (statuses as of 09/15/2021) [facility] of [facility] illness Narrative* Problem [...] done as it will not foreign exchange services manager (same duration of ABx treatment) Cholelithiasis with [...] 06/24/2016 - Decreased Flatulence - [facility] at [place] [facility] was normal (report available only) Plan: [...] of this encounter (statuses as of 09/30/2021) [facility] of [facility] illness Narrative* Problem [...] done as it will not foreign exchange services manager (same duration of ABx treatment) Cholelithiasis with [...] 06/24/2016 - Decreased Flatulence - [facility] at [place] [facility] was normal (report available only) Plan: [...] of this encounter (statuses as of 10/17/2021) [facility] of [facility] Narrative* Problem [...] done as it will not foreign exchange services manager (same duration of ABx treatment) Cholelithiasis with [...] 06/24/2016 - Decreased Flatulence - [facility] at [facility] was normal (report available only) Plan: - [...] of this encounter (statuses as of 11/17/2021) [facility] of Past illness Narrative* Problem [...] done as it will not foreign exchange services manager (same duration of ABx treatment) Cholelithiasis with [...] 06/24/2016 - Decreased Flatulence - [facility] at [place] [facility] was normal (report available only) Plan: [...] of this encounter (statuses as of 12/18/2021) [facility] of [facility] Narrative* Problem [...] done as it will not foreign exchange services manager (same duration of ABx treatment) Cholelithiasis with [...] 06/24/2016 - Decreased Flatulence - [facility] at [place] [facility] was normal (report available only) Plan: [...] of this encounter (statuses as of 01/08/2022) [facility] Narrative* Problem [...] done as it will not foreign exchange services manager (same duration of ABx treatment) Cholelithiasis with [...] 06/24/2016 - Decreased Flatulence - [facility] at [place] [facility] was normal (report available only) Plan: [...] of this encounter (statuses as of 01/13/2022) [place] [address]-07-2017 History of Past illness Narrative* Problem Noted [...] done as it will not foreign exchange services manager (same duration of ABx treatment) Cholelithiasis with [...] 06/24/2016 - Decreased Flatulence - [facility] at [place] [facility] was normal (report available only) Plan: [...] of this encounter (statuses as of 01/20/2022) [facility] Narrative* Problem [...] done as it will not foreign exchange services manager (same duration of ABx treatment) Cholelithiasis with [...] 06/24/2016 - Decreased Flatulence - [facility] at [place] [facility] was normal (report available only) Plan: [...] of this encounter (statuses as of 02/20/2022) [facility] Narrative* Problem [...] done as it will not foreign exchange services manager (same duration of ABx treatment) Cholelithiasis with [...] 06/24/2016 - Decreased Flatulence - K[facility] at [place] [facility] was normal (report available only) Plan: [...] of this encounter (statuses as of 02/27/2022) [facility] Narrative* Problem [...] done as it will not foreign exchange services manager (same duration of ABx treatment) Cholelithiasis with [...] 06/24/2016 - Decreased Flatulence - K[facility] at [place] [facility] was normal (report available only) Plan: [...] of this encounter (statuses as of 04/26/2022) [facility] Narrative* Problem [...] done as it will not foreign exchange services manager (same duration of ABx treatment) Cholelithiasis with [...] 06/24/2016 - Decreased Flatulence - K[facility] at [place] [facility] was normal (report available only) Plan: [...] of this encounter (statuses as of 05/02/2022) [facility] Narrative* Problem [...] done as it will not foreign exchange services manager (same duration of ABx treatment) Cholelithiasis with [...] 06/24/2016 - Decreased Flatulence - K[facility] at [place] [facility] was normal (report available only) Plan: [...] of this encounter (statuses as of 05/05/2022) [facility] Narrative* Problem [...] done as it will not foreign exchange services manager (same duration of ABx treatment) Cholelithiasis with [...] 06/24/2016 - Decreased Flatulence - K[facility] at [place] [facility] was normal (report available only) Plan: [...] of this encounter (statuses as of 05/15/2022) [facility] Narrative* Problem [...] done as it will not foreign exchange services manager (same duration of ABx treatment) Cholelithiasis with [...] 06/24/2016 - Decreased Flatulence - K[facility] at [place] [facility] was normal (report available only) Plan: [...] of this encounter (statuses as of 06/08/2022) [facility] Narrative* Problem [...] done as it will not foreign exchange services manager (same duration of ABx treatment) Cholelithiasis with [...] 06/24/2016 - Decreased Flatulence - KUB at [place] [facility] was normal (report available only) Plan: [...] of this encounter (statuses as of 06/29/2022) [facility] Narrative* Problem [...] done as it will not foreign exchange services manager (same duration of ABx treatment) Cholelithiasis with [...] 06/24/2016 - Decreased Flatulence - KUB at [place] [facility] was normal (report available only) Plan: [...] of this encounter (statuses as of 07/03/2022) [facility] Narrative* Problem [...] done as it will not foreign exchange services manager (same duration of ABx treatment) Cholelithiasis with [...] 06/24/2016 - Decreased Flatulence - KUB at [place] [facility] was normal (report available only) Plan: [...] of this encounter (statuses as of 09/01/2022) [facility] Narrative* Problem [...] done as it will not foreign exchange services manager (same duration of ABx treatment) Cholelithiasis with [...] 06/24/2016 - Decreased Flatulence - KUB at [place] [facility] was normal (report available only) Plan: [...] of this encounter (statuses as of 11/06/2022) [facility] Narrative* Problem [...] done as it will not foreign exchange services manager (same duration of ABx treatment) Cholelithiasis with [...] 06/24/2016 - Decreased Flatulence - KUB at [place] [facility] was normal (report available only) Plan: [...] of this encounter (statuses as of 11/06/2022) [facility] Narrative* Problem [...] done as it will not foreign exchange services manager (same duration of ABx treatment) Cholelithiasis with [...] 06/24/2016 - Decreased Flatulence - KUB at [place] [facility] was normal (report available only) Plan: [...] of this encounter (statuses as of 12/29/2022) [facility] Narrative* Problem [...] done as it will not foreign exchange services manager (same duration of ABx treatment) Cholelithiasis with [...] 06/24/2016 - Decreased Flatulence - [facility]UB at [facility] was normal (report available only) Plan: - [...] of this encounter (statuses as of 01/15/2023) [facility] Narrative* Problem [...] done as it will not foreign exchange services manager (same duration of ABx treatment) Cholelithiasis with [...] 06/24/2016 - Decreased Flatulence - KUB at [place] [facility] was normal (report available only) Plan: [...] of this encounter (statuses as of 01/30/2023) [facility] Narrative* Problem [...] done as it will not foreign exchange services manager (same duration of ABx treatment) Cholelithiasis with [...] 06/24/2016 - Decreased Flatulence - KUB at [place] [facility] was normal (report available only) Plan: [...] of this encounter (statuses as of 02/19/2023) [facility] Narrative* Problem [...] done as it will not foreign exchange services manager (same duration of ABx treatment) Cholelithiasis with [...] 06/24/2016 - Decreased Flatulence - KUB at [place] [facility] was normal (report available only) Plan: [...] of this encounter (statuses as of 03/17/2023) [facility] Narrative* Problem [...] done as it will not foreign exchange services manager (same duration of ABx treatment) Cholelithiasis with [...] 06/24/2016 - Decreased Flatulence - KUB at [place] [facility] was normal (report available only) Plan: [...] of this encounter (statuses as of 03/31/2023) [facility] Narrative* Problem [...] done as it will not foreign exchange services manager (same duration of ABx treatment) Cholelithiasis with [...] 06/24/2016 - Decreased Flatulence - KUB at [place] [facility] was normal (report available only) Plan: [...] of this encounter (statuses as of 06/11/2023) [facility] Narrative* Problem [...] done as it will not foreign exchange services manager (same duration of ABx treatment) Cholelithiasis with [...] 06/24/2016 - Decreased Flatulence - KUB at [place] [facility] was normal (report available only) Plan: [...] of this encounter (statuses as of 06/15/2023) [facility] Narrative* Problem [...] done as it will not foreign exchange services manager (same duration of ABx treatment) Cholelithiasis with [...] 06/24/2016 - Decreased Flatulence - KUB at [place] [facility] was normal (report available only) Plan: [...] of this encounter (statuses as of 06/16/2023) [facility] Narrative* Problem [...] done as it will not foreign exchange services manager (same duration of ABx treatment) Cholelithiasis with [...] 06/24/2016 - Decreased Flatulence - KUB at [place] [facility] was normal (report available only) Plan: [...] of this encounter (statuses as of 06/17/2023) [facility] Narrative* Problem [...] done as it will not foreign exchange services manager (same duration of ABx treatment) Cholelithiasis with [...] 06/24/2016 - Decreased Flatulence - KUB at [place] [facility] was normal (report available only) Plan: [...] of this encounter (statuses as of 06/21/2023) [facility]2017 History of Past illness Narrative* Problem [...] done as it will not foreign exchange services manager (same duration of ABx treatment) Cholelithiasis with [...] 06/24/2016 - Decreased Flatulence - KUB at [place] [facility] was normal (report available only) Plan: [...] of this encounter (statuses as of 06/28/2023) [facility]2017 History of Past illness Narrative* Problem [...] done as it will not foreign exchange services manager (same duration of ABx treatment) Cholelithiasis with [...] 06/24/2016 - Decreased Flatulence - KUB at [place] [facility] was normal (report available only) Plan: [...] of this encounter (statuses as of 07/20/2023) [facility]2017 History of Past illness Narrative* Problem [...] done as it will not foreign exchange services manager (same duration of ABx treatment) Cholelithiasis with [...] 06/24/2016 - Decreased Flatulence - KUB at [place] [facility] was normal (report available only) Plan: [...] of this encounter (statuses as of 07/26/2023) [facility]2017 History of Past illness Narrative* Problem [...] done as it will not foreign exchange services manager (same duration of ABx treatment) Cholelithiasis with [...] 06/24/2016 - Decreased Flatulence - KUB at [place] [facility] was normal (report available only) Plan: [...] of this encounter (statuses as of 07/27/2023) [facility] History of Past illness Narrative* Problem [...] done as it will not foreign exchange services manager (same duration of ABx treatment) Cholelithiasis with [...] 06/24/2016 - Decreased Flatulence - KUB at [place] [facility] was normal (report available only) Plan: [...] of this encounter (statuses as of 08/06/2023) [facility] Riley Jeff [facility] Note Date/Time September 29, 2024 4:33a m [facility] Medical Records Department [address] [place] [address] Emergency Department Summary 09/29/24 MR#: [id number] Acct: [id number] Name: DENIA GONZALEZ Rep #:[id number] : 1955 69 From: Riley Jeff DO [...] Secondary to that she presents for evaluation [facility] Medical History RLS (restless legs [...] 78.5 H Lymph % (Auto) 13.2 L Lee % (Auto) 6.9 Eos % (Auto) 0.7 [...] of an acute cardiopulmonary abnormality. Reading Location: [id number] Chest x-ray as interpreted by the emergency medicine physician reveals no acute infiltrate pneumothorax or pleural effusion Management Discussion w/another healthcare provider: Hospitalist Discharge Plan Dx/Rx/DC Orders Clinical Impression: COPD with acute exacerbation, Benign essential hypertension, Anxiety and depression Disposition Disposition: Acute Care Hospital [facility] [place] What to do if you have Problems For any increased pain, shortness of breath, bleeding, nausea or vomiting, chestpain, or any unexpected problems, contact your Primary Care Provider. Call [facility] ([phone]) or report to the closest Emergency Room. Call 911 if necessary. 09/29/24 0433 <Electronically signed by Riley Jeff DO> Cosigner Signature (if applicable): CC: Dr. Yoseph Fall MD ~ Signed [facility] Work Phone: Discharge summary Author Alessandro Palma [facility] Note Date/Time October 09, 2024 3:58 pm [facility] Medical Records Department [address] [place] [address] Instructions for Home/Discharge Instructions 10/09/24 1542 MR#: [id number] Acct: [id number] Name: DENIA GONZALEZ Rep #:[id number] : 1955 69 From: Alessandro Liu PCP: [...] Attending Provider: Alessandro Palma Primary Care Provider: Yospeh Fall Consulting Providers: Dionne Porter; Jan Bolanos; [...] MD; Dr. Jan Bolanos MD ~ Signed [facility] Work Phone: Discharge summary Author [facility] Note Date/Time October 09, 2024 4:06 pm [facility] Medical Records Department [address] [place] [address] Discharge Summary 10/09/24 1558 MR#: [id number] Acct: [id number] Name: DENIA GONZALEZ Rep #:[id number] : 1955 69 From: Alessandro Liu PCP: Dr. Yoseph Fall MD Status:AD M IN Location: [facility] [id number] Providers Date of Admission: 09/29/24 Date [...] mg twice daily. * Discussed with the senior administrative support Dr. Hopkins today. Discharge on verapamil and [...] 86.9 H, Lymph % (Auto) 6.9 L, Lee %(Auto) 5.3, Eos % (Auto) 0.0, Baso [...] (Evaluation for moderate to severe aortic stenosis) Lidnsay Whitehead PA [Med Staff - Adv Practice Prof] - Within 1 Week Disposition Disposition (needs filled in before D/C Order can be placed): Home Health Service Charges/Coding Visit Charges Inpatient E&M: 13997 Disch Hosp >30min 10/09/24 1606 <Electronically signed by Alessandro Palma MD> Cosigner Signature (if applicable): CC: Dr. Yoseph Fall MD; Dr. Alessandro Palma MD~ Signed [facility] Work Phone: Discharge summary Author Lynne Schafer [facility] Note Date/Time December 30, 2024 11:[address] [place] [address] Health System Medical Records Department [address] [place] [address] Instructions for Home/Discharge Instructions 12/30/24 1141 MR#: [id number] Acct: [id number] Name: DENIA GONZALEZ Rep #:[id number] : 1955 69 From: Lynne Schafer MD [...] by Lynne Schafer MD>Lynne Schafer MD CC: [employer]OCKROOM KEEPER-C Elma Mendez; [employer]OCK[employer] KEEPER-C Stacy Jha; STOCKRO[employer] KEEPER-C Mercedez Joseph; Dr. Dionne Porter MD; Dr. Yoseph Fall MD; Dr. Alessandro Palma MD;SADIQ Paez; Kyle Mendenhall DO ~ Signed [facility] Work Phone: Discharge summary Author [facility] Note Date/Time January 25, 2025 10 :35am [facility] Medical Records Department [address] [place] [address] Emergency Department Summary 01/25/25 MR#: [id number] Acct: [id number] Name: DENIA GONZALEZ Rep #:[id number] : 1955 69 From: Mercy Lamas PCP: [...] a heart cath 3 weeks ago at [facility]. He is not sure if she is still on her Eliquis or not. No other information obtained at this time. He understand that she will need admission to the ICU. [facility] Medical History Palliative care encounter [...] heater probe. She is following up with [facility] for her severe concentric left ventricular hypertrophy [...] Dr. Palma. Also discussed the case with segment block layer. While in the ICU patient's does develop [...] 74.3 H Lymph % (Auto) 12.5 L Lee % (Auto) 11.0 H Eos % (Auto) [...] CHRONIC CHANGES. NO ACUTE FINDINGS. Reading Location: [facility] Chest CTA 01/25/25 08:51 IMPRESSION: No demonstrated [...] cysts, no specific follow-up needed Reading Location: [facility] Chest X-Ray 01/25/25 09:00 IMPRESSION: Tubes and lines in position. There are interstitial infiltrates throughout the right mid and lower lung and left lingular segment. There are trace bilateral effusions. Reading [facility] Rhythm Strip Rhythm Strip: Sinus Tach [...] Management Discussion w/another healthcare provider: Hospitalist and Supervisor Stave Cutting Procedures Intubations Intubation Method: orotracheal (7.5 ET [...] procedures): 30-74 minutes (47), Discussing w/Patient &/or Family/Admeasurer, Discussing w/Consultants, Arranging Admission or Transfer and Performing Direct Patient Care at Bedside Discharge Plan Dx/Rx/DC Orders Clinical Impression: Acute respiratory failure, Tachycardia, Aortic valve stenosis, Anticoagulated on apixaban, Pneumonia, Chronic anemia Disposition Disposition: Acute Care [facility] [place] What to do if you have Problems For any increased pain, shortness of breath, bleeding, nausea or vomiting, chestpain, or any unexpected problems, contact your Primary Care Provider. Call [facility] ([phone]) or report to the closest Emergency Room. Call 911 if necessary. 01/25/25 1035 <Electronically signed by Mercy Flores DO> Cosigner Signature (if applicable): CC: Dr. Yoseph Fall MD ~ Signed [facility] Work Phone: Evaluation note* Diagnosis Essential hypertension, benign- Primary Elevated glucose Other abnormal glucose [facility] Diagnosis Chronic low back pain with sciatica, sciatica laterality unspecified, unspecified back pain laterality [facility]* Diagnosis Chronic obstructive pulmonary disease, unspecified COPD type (HCC) [facility]* Diagnosis Chronic obstructive pulmonary disease, unspecified COPD type (HCC)- Primary Chronic low back pain with sciatica, sciatica laterality unspecified, unspecified back pain laterality Essential hypertension, benign Uncomplicated asthma, unspecified asthma severity, unspecified whether persistent Generalized anxiety disorder [facility] Diagnosis Chronic low back pain with sciatica, sciatica laterality unspecified, unspecified back pain laterality [facility] Diagnosis Chronic obstructive pulmonary disease, unspecified COPD type (HCC)- Primary [facility]* Diagnosis Chronic low back pain with sciatica, sciatica laterality unspecified, unspecified back pain laterality documented in this encounter [facility] note* Diagnosis Chronic obstructive pulmonary disease, unspecified COPD type (HCC) documented in this encounter [facility] note* Diagnosis Stage 3 severe COPD by GOLD classification (HCC)- Primary Chronic respiratory failure with hypoxia (HCC) Chronic respiratory failure documented in this encounter [facility] note* Diagnosis Stage 3 severe COPD by GOLD classification ([facility])- Primary Chronic low back pain with sciatica, sciatica laterality unspecified, unspecified back pain laterality Chronic respiratory failure with hypoxia (HCC) Chronic respiratory failure Essential hypertension, benign Generalized anxiety disorder Tobacco use disorder documented in this encounter [facility] note* Diagnosis Chronic obstructive pulmonary disease, unspecified COPD type (HCC) Uncomplicated asthma, unspecified asthma severity, unspecified whether persistent documented in this encounter [facility] note* Diagnosis Esophageal reflux documented in this encounter [facility] note* Diagnosis Generalized osteoarthrosis, involving multiple sites documented in this encounter [facility] note* Diagnosis Generalized osteoarthrosis, involving multiple sites documented in this encounter [facility] note* Diagnosis Screening for colon cancer- Primary Special screening for malignant neoplasms, colon documented in this encounter [facility] note* Diagnosis Chronic low back pain with sciatica, sciatica laterality unspecified, unspecified back pain laterality- Primary Generalized osteoarthrosis, involving multiple sites Generalized anxiety disorder Depression, unspecified depression type Essential hypertension, benign Elevated glucose Other abnormal glucose Stage 3 severe COPD by GOLD classification ([facility]) Gastroesophageal reflux disease, unspecified whether esophagitis present Chronic obstructive pulmonary disease, unspecified COPD type (HCC) Uncomplicated asthma, unspecified asthma severity, unspecified whether persistent Tobacco use disorder Need for influenza vaccination Need for prophylactic vaccination and inoculation against influenza Encounter for medication monitoring Encounter for therapeutic drug monitoring documented in this encounter [facility] note* Diagnosis Thrush, oral Candidiasis of mouth documented in this encounter [facility] note* Diagnosis Encounter for screening mammogram for breast cancer documented in this encounter [facility] note* Diagnosis Onset Date Resolution Status COPD (chronic obstructive pulmonary disease) acute Hypoxia acute Respiratory insufficiency ac tyra Viral URI with cough acute COPD with acute exacerbation [facility] Work Phone: Evaluation note* Diagnosis Obstructive chronic bronchitis with exacerbation (HCC)- Primary Obstructive chronic bronchitis with exacerbation Stage 3 severe COPD by GOLD classification ([facility]) Cigarette smoker Tobacco use disorder Chronic respiratory failure with hypoxia (HCC) Chronic respiratory failure [facility] Diagnosis Stage 3 severe COPD by GOLD classification (HCC)- Primary Essential hypertension, benign Cigarette smoker Tobacco use disorder Generalized anxiety disorder Chronic low back pain with sciatica, sciatica laterality unspecified, unspecified back pain laterality [facility]* Diagnosis Chronic low back pain with sciatica, sciatica laterality unspecified, unspecified back pain laterality [facility] Diagnosis Chronic low back pain with sciatica, sciatica laterality unspecified, unspecified back pain laterality Tobacco use disorder [facility]* Diagnosis Bronchitis Bronchitis, not specified as acute or chronic [facility]* Diagnosis Generalized osteoarthrosis, involving multiple sites [facility]* Diagnosis Chronic low back pain with sciatica, sciatica laterality unspecified, unspecified back pain laterality [facility]* Diagnosis Stage 3 severe COPD by GOLD classification ([facility])- Primary Generalized osteoarthrosis, involving multiple sites Chronic low back pain with sciatica, sciatica laterality unspecified, unspecified back pain laterality Essential hypertension, benign Tobacco use disorder Dysthymic disorder [facility]* Diagnosis Chronic low back pain with sciatica, sciatica laterality unspecified, unspecified back pain laterality [facility] Diagnosis Chronic low back pain with sciatica, sciatica laterality unspecified, unspecified back pain laterality Chronic obstructive pulmonary disease, unspecified COPD type (HCC) [facility]* Diagnosis Stage 3 severe COPD by GOLD classification ([facility]) [facility]* Diagnosis Chronic low back pain with sciatica, sciatica laterality unspecified, unspecified back pain laterality [facility]* Diagnosis Oral infection- Primary Other and unspecified diseases of the oral soft tissues [facility]* Diagnosis Chronic low back pain with sciatica, sciatica laterality unspecified, unspecified back pain laterality- Primary Essential hypertension, benign Generalized anxiety disorder Depression, unspecified depression type Gastroesophageal reflux disease without esophagitis Esophageal reflux documented in this encounter [facility] note* Diagnosis Chronic low back pain with sciatica, sciatica laterality unspecified, unspecified back pain laterality Thrush, oral Candidiasis of mouth documented in this encounter [facility] note* Diagnosis Generalized osteoarthrosis, involving multiple sites documented in this encounter [facility] note* Diagnosis Encounter for screening mammogram for breast cancer documented in this encounter [facility] note* Diagnosis Chronic low back pain with sciatica, sciatica laterality unspecified, unspecified back pain laterality documented in this encounter [facility] note* Diagnosis Esophageal reflux documented in this encounter [facility] note* Diagnosis Chronic obstructive pulmonary disease, [...] colon documented in this encounter [facility] note* Diagnosis Chronic low back pain with sciatica, sciatica laterality unspecified, unspecified back pain laterality documented in this encounter [facility] note* Diagnosis Onset Date Resolution Status Admit Date Anxiety and depression acute Ju 2024 4:06am COPD with acute exacerbation chronic September 29, 2024 4:06am [facility] Work Phone: Evaluation note* Diagnosis Chronic low back pain with sciatica, sciatica laterality unspecified, unspecified back pain laterality documented in this encounter [facility] note* Diagnosis Stage 3 severe COPD by GOLD classification ([facility]) Chronic low back pain with sciatica, sciatica laterality unspecified, unspecified back pain laterality documented in this encounter [facility] note* Diagnosis Stage 3 severe COPD by GOLD classification (HCC)- Primary Chronic low back pain with sciatica, sciatica laterality unspecified, unspecified back pain laterality Essential hypertension, benign Tobacco use disorder Generalized anxiety disorder Aortic valve stenosis, etiology of cardiac valve disease unspecified documented in this encounter [facility] note* Diagnosis Stage 3 severe COPD by GOLD classification ([facility])- Primary Generalized osteoarthrosis, involving multiple sites Generalized anxiety disorder Chronic low back pain with sciatica, sciatica laterality unspecified, unspecified back pain laterality documented in this encounter [facility] note* Diagnosis Stage 3 severe COPD by GOLD classification (HCC)- Primary Chronic low back pain with sciatica, sciatica laterality unspecified, unspecified back pain laterality documented in this encounter [facility] note* Diagnosis NO SHOW- Primary Stage 3 severe COPD by GOLD classification (HCC) Generalized osteoarthrosis, involving multiple sites Generalized anxiety disorder Chronic low back pain with sciatica, sciatica laterality unspecified, unspecified back pain laterality documented in this encounter [facility] note* Diagnosis Stage 3 severe COPD by GOLD classification (HCC) documented in this encounter [facility] note* Diagnosis No-show for appointment- Primary Stage 3 severe COPD by GOLD classification (HCC) Chronic low back pain with sciatica, sciatica laterality unspecified, unspecified back pain laterality documented in this encounter [facility] note* Diagnosis Palliative care by specialist- [...] chronic pain 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 documented in this encounter [facility] note* Diagnosis Stage 3 severe COPD by GOLD classification (HCC) documented in this encounter [facility] note* Diagnosis Severe aortic stenosis- Primary Aortic valve disorders Chronic respiratory failure with hypoxia (HCC) [facility] Diagnosis Preop cardiovascular exam- Primary Pre-operative cardiovascular examination Nonrheumatic aortic valve stenosis Preop cardiovascular exam- Primary Pre-operative cardiovascular examination [facility]* Diagnosis Itching- Primary Unspecified pruritic disorder documented in this encounter [facility] note* Diagnosis Preop cardiovascular exam- Primary Pre-operative cardiovascular examination Preop cardiovascular exam Pre-operative cardiovascular examination Aortic valve stenosis, etiology of cardiac valve disease unspecified Preop cardiovascular exam Pre-operative cardiovascular examination documented in this encounter [facility] HealthHistory and physical note Author José Smith [facility] July 20, 2023 4:55am Note Date/Time July 20, 2023 4:2 4am [facility] Medical Records Department [address] [place] [address] H&P Exam - Hospitalist 07/20/23 0406 MR#: [id number] Acct: [id number] Name: DENIA GONZALEZ Rep #:[id number] : 1955 68 From: José Abebe DO PCP: Dr. Yoseph Fall MD Status:AD M IN Location: [facility] [id number] HPI - General General Date of Admission: [...] anxiety, GERD and OA who presents to [facility] ER complaining of shortness of breath, wheezing [...] exacerbation of COPD with clinical evidence of [id number] hypoxic respiratory insufficiency likely due to recent [...] % (Auto) 67.5, Lymph % (Auto) 23.7, Lee% (Auto) 7.6, Eos % (Auto) 0.6, Baso [...] needed nebulizers. Give Tylenol as needed for ikno-fx-lbunyggx(level 1- 5/10) pain or fever. Continue Percocet prn for severe (level 6-10/10) pain. Tobacco cessation will be strongly encouraged with nicotine patch offeredto control cravings. 2. Viral URI likely triggering #1 - Check viral respiratory panel and placed oncontact and droplet precautions until confirmed negative. 3. Sfrmy-aa-acvfqki hypoxic respiratory insufficiency arising from #1 & [...] 55 minutes. Charges/Coding Visit Charges Inpatient E&M: 53079 Init Hosp L2 07/20/23 0455 <Electronically signed by José Cunningham DO> Cosigner Signature (if applicable): CC: Dr. José Cunningham DO; Dr. Yoseph Fall MD~ Signed [facility] Work Phone: History and physical note Author Dionne Porter [facility] Note Date/Time September 29, 2024 4:32a m [facility] Medical Records Department [address] [place] [address] H&P Exam - Hospitalist 09/29/24 0403 MR#: [id number] Acct: [id number] Name: DENIA GONZALEZ Rep #:[id number] : 1955 69 From: Dionne Porter MD [...] allergic rhinitis, HTN who presents to the [facility] ED on 09/29/2024 with history of ~ [...] 78.5 H, Lymph % (Auto) 13.2 L, Lee % (Auto) 6.9, Eos % (Auto) 0.7, [...] allergic rhinitis, HTN who presents to the [facility] ED on 09/29/2024 with history of ~ [...] Code status. Charges/Coding Visit Charges Inpatient E&M: 50286 Init Hosp L3 09/29/24 0431 <Electronically signed by Dionne Porter MD> Cosigner Signature (if applicable): CC: Dr. Dionne Porter MD; Dr. Yoseph Fall MD~ Signed [facility] Work Phone: History and physical note Author Dionne Porter [facility] Note Date/Time December 26, 2024 8:21pm [facility] Medical Records Department [address] [place] [address] H&P Exam - Hospitalist [birth year] MR#: [id number] Acct: [id number] Name: DENIA GONZALEZ Rep #:[id number] : 1955 69 From: Dionne Porter MD PCP: Dr. Yoseph Fall MD Status:AD M IN Location: [facility] [id number] HPI - General General Date of [...] allergic rhinitis, HTN who presents to the [facility] ED on 12/26/2024 with history of 3 to 4 days of progressively worsening fatigue, malaise, dyspnea with chest tightness and wheezing coupled unfortunately with significant panic attacks whenever she has been attempting to leave the house with a productive cough specifically of yellow sputum prompting ED evaluation be cautious. She does report that she is supposed to have a heart cath at [facility] in the next several weeks because [...] BUN/creatinine 16/0.64, GFR 96, glucose 112, initial halpldkg33 with repeat delta 25, chest x-ray with [...] 1 and Solu-Medrol 125 mg IVx 1. [facility] Medical History Afib Aortic valve [...] 83.2 H, Lymph % (Auto) 11.3 L, Lee % (Auto) 4.5, Eos % (Auto) 0.1, [...] acute abnormality. No significant change Reading [id number] Assessment & Plan Assessment/Plan (1) COPD with acute exacerbation: PLAN: Plan The patient is a 69 y/o F w/ PMHx: Valvular Heart Disease, GERD, RLS, Anxiety and Depression, Former tobacco use, Former EtOH Abuse, Hx Non-small cell lung cancer status post right lung lobectomy remotely 2003, COPD/Asthma with Chronic Hypoxic Respiratory Failure (2L NC) with allergic rhinitis, HTN who presents to the [facility] ED on 12/26/2024 with history of 3 [...] with plan as noted for evaluation at [facility] with upcoming cardiac catheterization for consideration [...] 16 minutes. Charges/Coding Visit Charges Inpatient E&M: 12120 Init Hosp L3 Procedures Hospitalists Procedures: 42057 Advncd Care Plan 30 Min 12/26/242020 <Electronically signed by Dionne Porter MD> Cosigner Signature (if applicable): CC: Dr. Dionne Porter MD; Dr. Yoseph Fall MD~ Signed [facility] Work Phone: Hospital Discharge instructions Additional Instructions [...] needed for your shortness of breath and wheezing.[facility] Work Phone: Hospital Discharge instructionsAdditional Instructions DISCHARGE [...] the nearest emergency department Date of Discharge: 01/31/25[facility] Work Phone: Progress note Author Ingris Irwin [facility] Note Date/Time February 08, 2025 1 0:30am [facility] [address] [place] [address] OFFICE VISIT Date of Service: 02/08/25 MR#: [id number] Acct: [id number] Name: DENIA GONZALEZ Rep #: [id number] : 1955 Provider: STEFANIE Irwin Age/Sex: 69/F [facility] Status: Signed HPI HPI History of Present Illness Details: Denia Gonzalez is a 69-year-old female who presents to the office today for a cardiovascular follow-up visit. She was admitted to [facility] on September 29, 2024 and discharged on [...] She had undergone a cardiac catheterization at [facility] to evaluate her severe symptomatic aortic stenosis. [...] Rate (L/min) 3 Intake Visit Reasons: S/P ([facility] 01/31) Nuclear Security Officer Required: No Is patient in pain?: No [...] 02/12/25 Rx capsule,extended release OXYGEN - Supplemental ([facility] hypoxia 01/27/25 02/12/25 H istory INFORMATIONAL USE [...] bisacodyl 10 mg rectal suppository 10 mg IA ONCE 02/0802/12/25 History cyanocobalamin (vitamin B-12) 500 500 mcg PO QDAY 01/2402/12/25 History mcg tablet Ejection fraction %: 70 Have you fallen in the past year?: Yes [facility] Medical History Palliative care encounter Acute anemia [...] rate 81 bpm, QT/QTc: 350/421. Unfortunately, patient's [place] [facility] not have Mult[facility]. Discussed with Dr. [...] states she underwent a cardiac catheterization from [facility], and is awaiting a TAVR. Will obtain those records. She will continue to follow-up with [facility], and continue to monitor for any concerning [...] Orders: Orders 12 Lead EKG performed by [facility] 02/08/25 I48.0 - Paroxysmal atrial fibrillation Plan [...] updated, as necessary. Follow Up: 3 Months (STOCKROOM KEEPER/PA) Please obtain most recent cardiac cath results from [facility]-Dr. Shea Coding Level of Care Code Off [...] 02/12/25 1120 <Electronically signed by Ingris Irwin STOCKROOM KEEPER STOCKROOM KEEPER-C> Date _ Ingris Dc STOCKROOM KEEPER STOCKROOM KEEPER-C Cosigner Signature: Date (if applicable) CC: ~ [facility] Work Phone: Reason for referral (narrative)* Outpatient Procedure (Routine) - Pending Review Specialty Diagnoses / Procedures Referred By Contac t Referred To Contact [facility] Diagnoses Chronic obstructive pulmonary disease, unspecified COPD type (HCC) Procedures OXIMETRY WITH AMBULATION NONINVASIVE EAR/PULSE OXIMETRY MULTIPLE Michelle Marie MD [address] [place] [address] Respiratory [place] [address] [place] [address] Referral ID Status Reason Start Date Expiration Date Visits Requested Visits Authorized [id number] Pending Review Auto-Generat ed Referral 01/13/2022 02/12/2023 1 1 [facility] for referral (narrative)* Diagnostic Procedure Only (Routine) - Pending Review Specialty Diagnoses / Procedures Referred By Contac t Referred To Contact [facility] Diagnoses Encounter for screening mammogram for breast cancer Procedures MICKIE SCREENING SCREENING MAMMOGRAPHY BI 2-VIEW BREAST INC CAD Yoseph Fall MD [address] [place] [address] [facility] [address] [place] [phone] Referral ID Status Reason Start Date Expiration Date Visits Requested Visits Authorized [id number] Pending Review Auto-Generat ed Referral 06/16/2023 07/15/2024 1 1 [facility] for referral (narrative)No reason for referral information [facility] Work Phone: Reason for visit Narrative* Auth/Cert (Routine) Specialty Diagnoses / Procedures Referred By Contac t Referred To Contact Diagnoses Preop cardiovascular exam Preop cardiovascular exam [Z01.810] Procedures IA R & L HRT CATH WINJX HRT ART& L VENTR IMG Left and right heart cath / coronary angiography Zaria Shea MD [address] [place] [address] Phone: tel: fax: Referral ID Status Reason Start Date Expiration Date Visits Re quested Visits Authorized [id number]/15/2024 1 1 [facility] Advance Directives Documents on File Type Date Recorded 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 Advance Directive(s) 08/04/2016 2:40 PM Advance Directive(s) 08/04/2016 3:52 PM Advance Directive(s) 06/21/2016 6:38 PM Documents on File Type Date Recorded 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 No September 29, 2024 2:42am Advance Directives No May 08, 2016 10:32am Advance Directive Response Recorded Date/ Time Do you have a Healthcare Power of Service Captain? No September 29, 2024 5:11am Advance Directives No May 08, 2016 10:32am Advance Directive Response Recorded Date/ Time Do you have a Healthcare Power of Service Captain? No September 29, 2024 5:11am Do you have a Healthcare Power of Service Captain? No December 26, 2024 4:37pm Advance Directives No May 08, 2016 10:32am Advance Directive Response Recorded Date/ Time Do you have a Healthcare Power of Service Captain? No September 29, 2024 5:11am Do you have a Healthcare Power of Service Captain? No December 26, 2024 9:29pm Advance Directives No May 08, 2016 10:32am Date Activated Date Inactivated Comments 01/05/2025 9:00 AM 01/05/2025 5:58 PM Date Activated Date Inactivated Comments 01/05/2025 9:00 AM 01/05/2025 5:58 PM Advance Directive Response Recorded Date/ Time Do you have a Healthcare Power of Service Captain? No September 29, 2024 5:11am Do you have a Healthcare Power of Service Captain? No December 26, 2024 9:29pm Do you have a Healthcare Power of Service Captain? No January 25, 2025 11:58am Advance Directives No May 08, 2016 10:32am Advance Directive Response Recorded Date/ Time Do you have a Healthcare Power of Service Captain? No December 26, 2024 9:29pm Do you have a Healthcare Power of Service Captain? No January 25, 2025 11:58am Advance Directives No May 08, 2016 10:32am Chief Complaint and Reason for Visit Chief Complaint ACUTE EXACERBATION O F COPD WITH [id number] Reason for Visit COPD (chronic obstru ctive pulmonary disease) Hypoxia Respiratory insufficiency Viral URI with cough COPD with acute exacerbation Chief Complaint ACUTE EXACERBATION O F COPD WITH [id number] ACUTE EXACERBATION OF COPD WITH [id number] ACUTE EXACERBATION OF COPD WITH [id number] Reason for Visit COPD (chronic obstru ctive [...] EXACERBATION October 09, 2024 3:58 pm S/P [facility] 10/09 New AFIB/Severe October 12:58pm Reason for [...] EXACERBATION October 09, 2024 3:58 pm S/P [facility] [place] /16 New AFIB/Severe October 12:58pm COPD EXACERBATION, [...] EXACERBATION October 09, 2024 3:58 pm S/P [facility] [place] 10/09 New AFIB/Severe October 12:58pm COPD EXACERBATION, [...] EXACERBATION October 09, 2024 3:58 pm S/P [facility] [place] 10/09 New AFIB/Severe October 12:58pm COPD EXACERBATION, [...] EXACERBATION October 09, 2024 3:58 pm S/P [facility] [place] 6/16 New AFIB/Severe October 12:58pm COPD EXACERBATION, [...] EXACERBATION October 09, 2024 3:58 pm S/P [facility] [place] 16 New AFIB/Severe October 12:58pm COPD EXACERBATION, [...] EXACERBATION October 09, 2024 3:58 pm S/P [facility] [place] 16 New AFIB/Severe October 12:58pm COPD EXACERBATION, [...] 10 :04am Chief Complaint Admit Date S/P [facility] [place] 10/09 New AFIB/Severe October 12:58pm COPD EXACERBATION, [...] WORK February 01, 2025 5: 00am S/P ([facility] [place] 01/31) February 08, 2025 9 :23am INTERMEDIATE LAB WORK February 13, 2025 4:00am Reason [...] involving multiple sites Iman Person APRN.CNP [address] [place] [address] Referral ID Status Reason Start Date Expiration Date V isits Requested Visits Authorized [id number] Pending Review 1 1 Specialty Diagnoses / Procedures Referred By Contac t Referred To Contact Diagnoses Generalized osteoarthrosis, involving multiple sites Yoseph Fall MD [address] [place] [address] Referral ID Status Reason Start Date Expiration Date V isits Requested Visits Authorized [id number] Pending Review 1 1 Referral ID Status Reason Start Date Expiration Date V isits Requested Visits Authorized [id number] Pending Review 1 1 Summary Purpose Additional Source Comments Source Comments (unrecognize d section and content) In the event this informatio n is protected by the [facility] Confidentiality of Alcohol and Drug Abuse Patient Records regulations: The Federal rules restrict any use of the information to criminally investigate or prosecute any alcohol or drug abuse patient.[facility] the event this information is protected by the Federal Confidentiality of Alcohol and Drug Abuse Patient Records regulations: The Federal rules restrict any use of the information to criminally investigate or prosecute any alcohol or drug abuse patient.[facility] HospitalIn the event this information is protected by the Federal Confidentiality of Alcohol and Drug Abuse Patient Records regulations: The Federal rules restrict any use of the information to criminally investigate or prosecute any alcohol or drug abuse patient.[facility] HospitalIn the event this information is protected by the Federal Confidentiality of Alcohol and Drug Abuse Patient Records regulations: The Federal rules restrict any use of the information to criminally investigate or prosecute any alcohol or drug abuse patient.[facility] HospitalIn the event this information is protected by the Federal Confidentiality of Alcohol and Drug Abuse Patient Records regulations: The Federal rules restrict any use of the information to criminally investigate or prosecute any alcohol or drug abuse patient.[facility] HospitalIn the event this information is protected by the Federal Confidentiality of Alcohol and Drug Abuse Patient Records regulations: The Federal rules restrict any use of the information to criminally investigate or prosecute any alcohol or drug abuse patient.[facility] HospitalIn the event this information is protected by the Federal Confidentiality of Alcohol and Drug Abuse Patient Records regulations: The Federal rules restrict any use of the information to criminally investigate or prosecute any alcohol or drug abuse patient.[facility] HospitalIn the event this information is protected by the Federal Confidentiality of Alcohol and Drug Abuse Patient Records regulations: The Federal rules restrict any use of the information to criminally investigate or prosecute any alcohol or drug abuse patient.[facility] HospitalIn the event this information is protected by the Federal Confidentiality of Alcohol and Drug Abuse Patient Records regulations: The Federal rules restrict any use of the information to criminally investigate or prosecute any alcohol or drug abuse patient.[facility] HospitalIn the event this information is protected by the Federal Confidentiality of Alcohol and Drug Abuse Patient Records regulations: The Federal rules restrict any use of the information to criminally investigate or prosecute any alcohol or drug abuse patient.[facility] HospitalIn the event this information is protected by the Federal Confidentiality of Alcohol and Drug Abuse Patient Records regulations: The Federal rules restrict any use of the information to criminally investigate or prosecute any alcohol or drug abuse patient.[facility] HospitalIn the event this information is protected by the Federal Confidentiality of Alcohol and Drug Abuse Patient Records regulations: The Federal rules restrict any use of the information to criminally investigate or prosecute any alcohol or drug abuse patient.[facility] HospitalIn the event this information is protected by the Federal Confidentiality of Alcohol and Drug Abuse Patient Records regulations: The Federal rules restrict any use of the information to criminally investigate or prosecute any alcohol or drug abuse patient.[facility] HospitalIn the event this information is protected by the Federal Confidentiality of Alcohol and Drug Abuse Patient Records regulations: The Federal rules restrict any use of the information to criminally investigate or prosecute any alcohol or drug abuse patient.[facility] HospitalIn the event this information is protected by the Federal Confidentiality of Alcohol and Drug Abuse Patient Records regulations: The Federal rules restrict any use of the information to criminally investigate or prosecute any alcohol or drug abuse patient.[facility] HospitalIn the event this information is protected by the Federal Confidentiality of Alcohol and Drug Abuse Patient Records regulations: The Federal rules restrict any use of the information to criminally investigate or prosecute any alcohol or drug abuse patient.[facility] HospitalIn the event this information is protected by the Federal Confidentiality of Alcohol and Drug Abuse Patient Records regulations: The Federal rules restrict any use of the information to criminally investigate or prosecute any alcohol or drug abuse patient.[facility] HospitalIn the event this information is protected by the Federal Confidentiality of Alcohol and Drug Abuse Patient Records regulations: The Federal rules restrict any use of the information to criminally investigate or prosecute any alcohol or drug abuse patient.[facility] HospitalIn the event this information is protected by the Federal Confidentiality of Alcohol and Drug Abuse Patient Records regulations: The Federal rules restrict any use of the information to criminally investigate or prosecute any alcohol or drug abuse patient.[facility] HospitalIn the event this information is protected by the Federal Confidentiality of Alcohol and Drug Abuse Patient Records regulations: The Federal rules restrict any use of the information to criminally investigate or prosecute any alcohol or drug abuse patient.[facility] HospitalIn the event this information is protected by the Federal Confidentiality of Alcohol and Drug Abuse Patient Records regulations: The Federal rules restrict any use of the information to criminally investigate or prosecute any alcohol or drug abuse patient.[facility] HospitalIn the event this information is protected by the Federal Confidentiality of Alcohol and Drug Abuse Patient Records regulations: The Federal rules restrict any use of the information to criminally investigate or prosecute any alcohol or drug abuse patient.[facility] HospitalIn the event this information is protected by the Federal Confidentiality of Alcohol and Drug Abuse Patient Records regulations: The Federal rules restrict any use of the information to criminally investigate or prosecute any alcohol or drug abuse patient.[facility] HospitalIn the event this information is protected by the Federal Confidentiality of Alcohol and Drug Abuse Patient Records regulations: The Federal rules restrict any use of the information to criminally investigate or prosecute any alcohol or drug abuse patient.[facility] HospitalIn the event this information is protected by the Federal Confidentiality of Alcohol and Drug Abuse Patient Records regulations: The Federal rules restrict any use of the information to criminally investigate or prosecute any alcohol or drug abuse patient.[facility] HospitalIn the event this information is protected by the Federal Confidentiality of Alcohol and Drug Abuse Patient Records regulations: The Federal rules restrict any use of the information to criminally investigate or prosecute any alcohol or drug abuse patient.[facility] HospitalIn the event this information is protected by the Federal Confidentiality of Alcohol and Drug Abuse Patient Records regulations: The Federal rules restrict any use of the information to criminally investigate or prosecute any alcohol or drug abuse patient.[facility] HospitalIn the event this information is protected by the Federal Confidentiality of Alcohol and Drug Abuse Patient Records regulations: The Federal rules restrict any use of the information to criminally investigate or prosecute any alcohol or drug abuse patient.[facility] HospitalIn the event this information is protected by the Federal Confidentiality of Alcohol and Drug Abuse Patient Records regulations: The Federal rules restrict any use of the information to criminally investigate or prosecute any alcohol or drug abuse patient.[facility] HospitalIn the event this information is protected by the Federal Confidentiality of Alcohol and Drug Abuse Patient Records regulations: The Federal rules restrict any use of the information to criminally investigate or prosecute any alcohol or drug abuse patient.[facility] HospitalIn the event this information is protected by the Federal Confidentiality of Alcohol and Drug Abuse Patient Records regulations: The Federal rules restrict any use of the information to criminally investigate or prosecute any alcohol or drug abuse patient.[facility] HospitalIn the event this information is protected by the Federal Confidentiality of Alcohol and Drug Abuse Patient Records regulations: The Federal rules restrict any use of the information to criminally investigate or prosecute any alcohol or drug abuse patient.[facility] HospitalIn the event this information is protected by the Federal Confidentiality of Alcohol and Drug Abuse Patient Records regulations: The Federal rules restrict any use of the information to criminally investigate or prosecute any alcohol or drug abuse patient.[facility] HospitalIn the event this information is protected by the Federal Confidentiality of Alcohol and Drug Abuse Patient Records regulations: The Federal rules restrict any use of the information to criminally investigate or prosecute any alcohol or drug abuse patient.[facility] HospitalIn the event this information is protected by the Federal Confidentiality of Alcohol and Drug Abuse Patient Records regulations: The Federal rules restrict any use of the information to criminally investigate or prosecute any alcohol or drug abuse patient.[facility] HospitalIn the event this information is protected by the Federal Confidentiality of Alcohol and Drug Abuse Patient Records regulations: The Federal rules restrict any use of the information to criminally investigate or prosecute any alcohol or drug abuse patient.[facility] HospitalIn the event this information is protected by the Federal Confidentiality of Alcohol and Drug Abuse Patient Records regulations: The Federal rules restrict any use of the information to criminally investigate or prosecute any alcohol or drug abuse patient.[facility] HospitalIn the event this information is protected by the Federal Confidentiality of Alcohol and Drug Abuse Patient Records regulations: The Federal rules restrict any use of the information to criminally investigate or prosecute any alcohol or drug abuse patient.[facility] HospitalIn the event this information is protected by the Federal Confidentiality of Alcohol and Drug Abuse Patient Records regulations: The Federal rules restrict any use of the information to criminally investigate or prosecute any alcohol or drug abuse patient.[facility] HospitalIn the event this information is protected by the Federal Confidentiality of Alcohol and Drug Abuse Patient Records regulations: The Federal rules restrict any use of the information to criminally investigate or prosecute any alcohol or drug abuse patient.[facility] HospitalIn the event this information is protected by the Federal Confidentiality of Alcohol and Drug Abuse Patient Records regulations: The Federal rules restrict any use of the information to criminally investigate or prosecute any alcohol or drug abuse patient.[facility] HospitalIn the event this information is protected by the Federal Confidentiality of Alcohol and Drug Abuse Patient Records regulations: The Federal rules restrict any use of the information to criminally investigate or prosecute any alcohol or drug abuse patient.[facility] HospitalIn the event this information is protected by the Federal Confidentiality of Alcohol and Drug Abuse Patient Records regulations: The Federal rules restrict any use of the information to criminally investigate or prosecute any alcohol or drug abuse patient.[facility] HospitalIn the event this information is protected by the Federal Confidentiality of Alcohol and Drug Abuse Patient Records regulations: The Federal rules restrict any use of the information to criminally investigate or prosecute any alcohol or drug abuse patient.[facility] HospitalIn the event this information is protected by the Federal Confidentiality of Alcohol and Drug Abuse Patient Records regulations: The Federal rules restrict any use of the information to criminally investigate or prosecute any alcohol or drug abuse patient.[facility] HospitalIn the event this information is protected by the Federal Confidentiality of Alcohol and Drug Abuse Patient Records regulations: The Federal rules restrict any use of the information to criminally investigate or prosecute any alcohol or drug abuse patient.[facility] HospitalIn the event this information is protected by the Federal Confidentiality of Alcohol and Drug Abuse Patient Records regulations: The Federal rules restrict any use of the information to criminally investigate or prosecute any alcohol or drug abuse patient.[facility] HospitalIn the event this information is protected by the Federal Confidentiality of Alcohol and Drug Abuse Patient Records regulations: The Federal rules restrict any use of the information to criminally investigate or prosecute any alcohol or drug abuse patient.[facility] HospitalIn the event this information is protected by the Federal Confidentiality of Alcohol and Drug Abuse Patient Records regulations: The Federal rules restrict any use of the information to criminally investigate or prosecute any alcohol or drug abuse patient.[facility] HospitalIn the event this information is protected by the Federal Confidentiality of Alcohol and Drug Abuse Patient Records regulations: The Federal rules restrict any use of the information to criminally investigate or prosecute any alcohol or drug abuse patient.[facility] HospitalIn the event this information is protected by the Federal Confidentiality of Alcohol and Drug Abuse Patient Records regulations: The Federal rules restrict any use of the information to criminally investigate or prosecute any alcohol or drug abuse patient.[facility] HospitalIn the event this information is protected by the Federal Confidentiality of Alcohol and Drug Abuse Patient Records regulations: The Federal rules restrict any use of the information to criminally investigate or prosecute any alcohol or drug abuse patient.[facility] HospitalIn the event this information is protected by the Federal Confidentiality of Alcohol and Drug Abuse Patient Records regulations: The Federal rules restrict any use of the information to criminally investigate or prosecute any alcohol or drug abuse patient.[facility] HospitalIn the event this information is protected by the Federal Confidentiality of Alcohol and Drug Abuse Patient Records regulations: The Federal rules restrict any use of the information to criminally investigate or prosecute any alcohol or drug abuse patient.[facility] HospitalIn the event this information is protected by the Federal Confidentiality of Alcohol and Drug Abuse Patient Records regulations: The Federal rules restrict any use of the information to criminally investigate or prosecute any alcohol or drug abuse patient.[facility] HospitalIn the event this information is protected by the Federal Confidentiality of Alcohol and Drug Abuse Patient Records regulations: The Federal rules restrict any use of the information to criminally investigate or prosecute any alcohol or drug abuse patient.[facility] HospitalIn the event this information is protected by the Federal Confidentiality of Alcohol and Drug Abuse Patient Records regulations: The Federal rules restrict any use of the information to criminally investigate or prosecute any alcohol or drug abuse patient.[facility] HospitalIn the event this information is protected by the Federal Confidentiality of Alcohol and Drug Abuse Patient Records regulations: The Federal rules restrict any use of the information to criminally investigate or prosecute any alcohol or drug abuse patient.[facility] HospitalIn the event this information is protected by the Federal Confidentiality of Alcohol and Drug Abuse Patient Records regulations: The Federal rules restrict any use of the information to criminally investigate or prosecute any alcohol or drug abuse patient.[facility] HospitalIn the event this information is protected by the Federal Confidentiality of Alcohol and Drug Abuse Patient Records regulations: The Federal rules restrict any use of the information to criminally investigate or prosecute any alcohol or drug abuse patient.[facility] HospitalIn the event this information is protected by the Federal Confidentiality of Alcohol and Drug Abuse Patient Records regulations: The Federal rules restrict any use of the information to criminally investigate or prosecute any alcohol or drug abuse patient.[facility] HospitalIn the event this information is protected by the Federal Confidentiality of Alcohol and Drug Abuse Patient Records regulations: The Federal rules restrict any use of the information to criminally investigate or prosecute any alcohol or drug abuse patient.[facility] HospitalIn the event this information is protected by the Federal Confidentiality of Alcohol and Drug Abuse Patient Records regulations: The Federal rules restrict any use of the information to criminally investigate or prosecute any alcohol or drug abuse patient.[facility] HospitalIn the event this information is protected by the Federal Confidentiality of Alcohol and Drug Abuse Patient Records regulations: The Federal rules restrict any use of the information to criminally investigate or prosecute any alcohol or drug abuse patient.[facility] HospitalIn the event this information is protected by the Federal Confidentiality of Alcohol and Drug Abuse Patient Records regulations: The Federal rules restrict any use of the information to criminally investigate or prosecute any alcohol or drug abuse patient.[facility] HospitalIn the event this information is protected by the Federal Confidentiality of Alcohol and Drug Abuse Patient Records regulations: The Federal rules restrict any use of the information to criminally investigate or prosecute any alcohol or drug abuse patient.[facility] HospitalIn the event this information is protected by the Federal Confidentiality of Alcohol and Drug Abuse Patient Records regulations: The Federal rules restrict any use of the information to criminally investigate or prosecute any alcohol or drug abuse patient.[facility] HospitalIn the event this information is protected by the Federal Confidentiality of Alcohol and Drug Abuse Patient Records regulations: The Federal rules restrict any use of the information to criminally investigate or prosecute any alcohol or drug abuse patient.[facility] HospitalIn the event this information is protected by the Federal Confidentiality of Alcohol and Drug Abuse Patient Records regulations: The Federal rules restrict any use of the information to criminally investigate or prosecute any alcohol or drug abuse patient.[facility] HospitalIn the event this information is protected by the Federal Confidentiality of Alcohol and Drug Abuse Patient Records regulations: The Federal rules restrict any use of the information to criminally investigate or prosecute any alcohol or drug abuse patient.[facility] HospitalIn the event this information is protected by the Federal Confidentiality of Alcohol and Drug Abuse Patient Records regulations: The Federal rules restrict any use of the information to criminally investigate or prosecute any alcohol or drug abuse patient.[facility] HospitalIn the event this information is protected by the Federal Confidentiality of Alcohol and Drug Abuse Patient Records regulations: The Federal rules restrict any use of the information to criminally investigate or prosecute any alcohol or drug abuse patient.[facility] HospitalIn the event this information is protected by the Federal Confidentiality of Alcohol and Drug Abuse Patient Records regulations: The Federal rules restrict any use of the information to criminally investigate or prosecute any alcohol or drug abuse patient.[facility] HospitalIn the event this information is protected by the Federal Confidentiality of Alcohol and Drug Abuse Patient Records regulations: The Federal rules restrict any use of the information to criminally investigate or prosecute any alcohol or drug abuse patient.[facility] HospitalIn the event this information is protected by the Federal Confidentiality of Alcohol and Drug Abuse Patient Records regulations: The Federal rules restrict any use of the information to criminally investigate or prosecute any alcohol or drug abuse patient.[facility] HospitalIn the event this information is protected by the Federal Confidentiality of Alcohol and Drug Abuse Patient Records regulations: The Federal rules restrict any use of the information to criminally investigate or prosecute any alcohol or drug abuse patient.[facility] HospitalIn the event this information is protected by the Federal Confidentiality of Alcohol and Drug Abuse Patient Records regulations: The Federal rules restrict any use of the information to criminally investigate or prosecute any alcohol or drug abuse patient.[facility] HospitalIn the event this information is protected by the Federal Confidentiality of Alcohol and Drug Abuse Patient Records regulations: The Federal rules restrict any use of the information to criminally investigate or prosecute any alcohol or drug abuse patient.[facility] HospitalIn the event this information is protected by the Federal Confidentiality of Alcohol and Drug Abuse Patient Records regulations: The Federal rules restrict any use of the information to criminally investigate or prosecute any alcohol or drug abuse patient.[facility] HospitalIn the event this information is protected by the Federal Confidentiality of Alcohol and Drug Abuse Patient Records regulations: The Federal rules restrict any use of the information to criminally investigate or prosecute any alcohol or drug abuse patient.[facility] HospitalIn the event this information is protected by the Federal Confidentiality of Alcohol and Drug Abuse Patient Records regulations: The Federal rules restrict any use of the information to criminally investigate or prosecute any alcohol or drug abuse patient.[facility] HospitalIn the event this information is protected by the Federal Confidentiality of Alcohol and Drug Abuse Patient Records regulations: The Federal rules restrict any use of the information to criminally investigate or prosecute any alcohol or drug abuse patient.[facility] HospitalIn the event this information is protected by the Federal Confidentiality of Alcohol and Drug Abuse Patient Records regulations: The Federal rules restrict any use of the information to criminally investigate or prosecute any alcohol or drug abuse patient.[facility] HospitalIn the event this information is protected by the Federal Confidentiality of Alcohol and Drug Abuse Patient Records regulations: The Federal rules restrict any use of the information to criminally investigate or prosecute any alcohol or drug abuse patient.[facility] HospitalIn the event this information is protected by the Federal Confidentiality of Alcohol and Drug Abuse Patient Records regulations: The Federal rules restrict any use of the information to criminally investigate or prosecute any alcohol or drug abuse patient.[facility] HospitalIn the event this information is protected by the Federal Confidentiality of Alcohol and Drug Abuse Patient Records regulations: The Federal rules restrict any use of the information to criminally investigate or prosecute any alcohol or drug abuse patient.[facility] HospitalIn the event this information is protected by the Federal Confidentiality of Alcohol and Drug Abuse Patient Records regulations: The Federal rules restrict any use of the information to criminally investigate or prosecute any alcohol or drug abuse patient.[facility] HospitalIn the event this information is protected by the Federal Confidentiality of Alcohol and Drug Abuse Patient Records regulations: The Federal rules restrict any use of the information to criminally investigate or prosecute any alcohol or drug abuse patient.[facility] HospitalIn the event this information is protected by the Federal Confidentiality of Alcohol and Drug Abuse Patient Records regulations: The Federal rules restrict any use of the information to criminally investigate or prosecute any alcohol or drug abuse patient.[facility] HospitalIn the event this information is protected by the Federal Confidentiality of Alcohol and Drug Abuse Patient Records regulations: The Federal rules restrict any use of the information to criminally investigate or prosecute any alcohol or drug abuse patient.[facility] HospitalIn the event this information is protected by the Federal Confidentiality of Alcohol and Drug Abuse Patient Records regulations: The Federal rules restrict any use of the information to criminally investigate or prosecute any alcohol or drug abuse patient.[facility] HospitalIn the event this information is protected by the Federal Confidentiality of Alcohol and Drug Abuse Patient Records regulations: The Federal rules restrict any use of the information to criminally investigate or prosecute any alcohol or drug abuse patient.[facility] HospitalIn the event this information is protected by the Federal Confidentiality of Alcohol and Drug Abuse Patient Records regulations: The Federal rules restrict any use of the information to criminally investigate or prosecute any alcohol or drug abuse patient.[facility] HospitalIn the event this information is protected by the Federal Confidentiality of Alcohol and Drug Abuse Patient Records regulations: The Federal rules restrict any use of the information to criminally investigate or prosecute any alcohol or drug abuse patient.[facility] HospitalIn the event this information is protected by the Federal Confidentiality of Alcohol and Drug Abuse Patient Records regulations: The Federal rules restrict any use of the information to criminally investigate or prosecute any alcohol or drug abuse patient.[facility] HospitalIn the event this information is protected by the Federal Confidentiality of Alcohol and Drug Abuse Patient Records regulations: The Federal rules restrict any use of the information to criminally investigate or prosecute any alcohol or drug abuse patient.[facility] HospitalIn the event this information is protected by the Federal Confidentiality of Alcohol and Drug Abuse Patient Records regulations: The Federal rules restrict any use of the information to criminally investigate or prosecute any alcohol or drug abuse patient.[facility] HospitalIn the event this information is protected by the Federal Confidentiality of Alcohol and Drug Abuse Patient Records regulations: The Federal rules restrict any use of the information to criminally investigate or prosecute any alcohol or drug abuse patient.[facility] HospitalIn the event this information is protected by the Federal Confidentiality of Alcohol and Drug Abuse Patient Records regulations: The Federal rules restrict any use of the information to criminally investigate or prosecute any alcohol or drug abuse patient.[facility] HospitalIn the event this information is protected by the Federal Confidentiality of Alcohol and Drug Abuse Patient Records regulations: The Federal rules restrict any use of the information to criminally investigate or prosecute any alcohol or drug abuse patient.[facility] HospitalIn the event this information is protected by the Federal Confidentiality of Alcohol and Drug Abuse Patient Records regulations: The Federal rules restrict any use of the information to criminally investigate or prosecute any alcohol or drug abuse patient.[facility] HospitalIn the event this information is protected by the Federal Confidentiality of Alcohol and Drug Abuse Patient Records regulations: The Federal rules restrict any use of the information to criminally investigate or prosecute any alcohol or drug abuse patient.[facility] HospitalIn the event this information is protected by the Federal Confidentiality of Alcohol and Drug Abuse Patient Records regulations: The Federal rules restrict any use of the information to criminally investigate or prosecute any alcohol or drug abuse patient.[facility] HospitalIn the event this information is protected by the Federal Confidentiality of Alcohol and Drug Abuse Patient Records regulations: The Federal rules restrict any use of the information to criminally investigate or prosecute any alcohol or drug abuse patient.[facility] HospitalIn the event this information is protected by the Federal Confidentiality of Alcohol and Drug Abuse Patient Records regulations: The Federal rules restrict any use of the information to criminally investigate or prosecute any alcohol or drug abuse patient.[facility] HospitalIn the event this information is protected by the Federal Confidentiality of Alcohol and Drug Abuse Patient Records regulations: The Federal rules restrict any use of the information to criminally investigate or prosecute any alcohol or drug abuse patient.[facility] HospitalIn the event this information is protected by the Federal Confidentiality of Alcohol and Drug Abuse Patient Records regulations: The Federal rules restrict any use of the information to criminally investigate or prosecute any alcohol or drug abuse patient.[facility] HospitalIn the event this information is protected by the Federal Confidentiality of Alcohol and Drug Abuse Patient Records regulations: The Federal rules restrict any use of the information to criminally investigate or prosecute any alcohol or drug abuse patient.[facility] HospitalIn the event this information is protected by the Federal Confidentiality of Alcohol and Drug Abuse Patient Records regulations: The Federal rules restrict any use of the information to criminally investigate or prosecute any alcohol or drug abuse patient.[facility] Care Teams (unrecognized sec tion and content) Independent Marketing Consultant Relationship Specialty Start Date End Date Yoseph Fall MD [address] [place] [address] PCP - General 04/17/09 Independent Marketing Consultant Relationship Specialty Start Date End Date Yoseph Fall MD [address] [place] [address] PCP - General 04/17/09 Independent Marketing Consultant Relationship Specialty Start Date End Date Yoseph Fall MD [address] [place] [address] PCP - General 04/17/09 Independent Marketing Consultant Relationship Specialty Start Date End Date Yoseph Fall MD [address] [place] [address] PCP - General 04/17/09 Independent Marketing Consultant Relationship Specialty Start Date End Date Yoseph Fall MD [address] [place] [address] PCP - General 04/17/09 Independent Marketing Consultant Relationship Specialty Start Date End Date Yoseph Fall MD [address] [place] [address] PCP - General 04/17/09 Independent Marketing Consultant Relationship Specialty Start Date End Date Yoseph Fall MD [address] [place] [address] PCP - General 04/17/09 Independent Marketing Consultant Relationship Specialty Start Date End Date Yoseph Fall MD [address] [place] [address] PCP - General 04/17/09 Independent Marketing Consultant Relationship Specialty Start Date End Date Yoseph Fall MD [facility] [place] [address] PCP - General 04/17/09 Independent Marketing Consultant Relationship Specialty Start Date End Date Yoseph Fall MD [address] [place] [address], [place] [address] PCP - General 04/17/09 Independent Marketing Consultant Relationship Specialty Start Date End Date Yoseph Fall MD [address] [place] [address], [place] [address] PCP - General 04/17/09 Independent Marketing Consultant Relationship Specialty Start Date End Date Yoseph Fall MD [address] [place] [address], [place] [address] PCP - General 04/17/09 Independent Marketing Consultant Relationship Specialty Start Date End Date Yoseph Fall MD [address] [place] [address], [place] [address] PCP - General 04/17/09 Independent Marketing Consultant Relationship Specialty Start Date End Date Yoseph Fall MD [address] [place] [address], [place] [address] PCP - General 04/17/09 Independent Marketing Consultant Relationship Specialty Start Date End Date Yoseph Fall MD [address] [place] [address], [place] [address] PCP - General 04/17/09 Independent Marketing Consultant Relationship Specialty Start Date End Date Yoseph Fall MD [address] [place] [address] PCP - General 04/17/09 Independent Marketing Consultant Relationship Specialty Start Date End Date Yoseph Fall MD [address] [place] [address] PCP - General 04/17/09 Independent Marketing Consultant Relationship Specialty Start Date End Date Yoseph Fall MD [address] [place] [address] PCP - General 04/17/09 Independent Marketing Consultant Relationship Specialty Start Date End Date Yoseph Fall MD [address] [place] [address] PCP - General 04/17/09 Independent Marketing Consultant Relationship Specialty Start Date End Date Yoseph Fall MD [address] [place] [address] PCP - General 04/17/09 Independent Marketing Consultant Relationship Specialty Start Date End Date Yoseph Fall MD [address] [place] [address] PCP - General 04/17/09 Independent Marketing Consultant Relationship Specialty Start Date End Date Yoseph Fall MD [address] [place] [address] PCP - General 04/17/09 Independent Marketing Consultant Relationship Specialty Start Date End Date Yoseph Fall MD [address] [place] [address] PCP - General 04/17/09 Independent Marketing Consultant Relationship Specialty Start Date End Date Yoseph Fall MD [address] [place] [address] PCP - General 04/17/09 Independent Marketing Consultant Relationship Specialty Start Date End Date Yoseph Fall MD [address] [place] [address] PCP - General 04/17/09 Independent Marketing Consultant Relationship Specialty Start Date End Date Yoseph Fall MD [address] [place], [place] [id number] PCP - General 04/17/09 Team Status: Active Member Role Status Dates Dr. Yoseph Fall MD Primary Care Provider Active Team Status: Active Member Role Status Dates Dr. Yoseph Fall MD Primary Care Provider Active Dr. Dallas Mena MD Emergency Provider Active Dr. José Cunningham DO Admit Provider, Attending Pr ovider Active Independent Marketing Consultant Relationship Specialty Start Date End Date Yoseph Fall MD [address] [place], [place] [address] PCP - General 04/17/09 Team Status: Active [...] Dr. Jan Bolanos MD Attending Provider Active Independent Marketing Consultant Relationship Specialty Start Date End Date Yoseph Fall MD [address] [place], [place] [address] PCP - General 04/17/09 Independent Marketing Consultant Relationship Specialty Start Date End Date Yoseph Fall MD [address] [place], [place] [address] PCP - General 04/17/09 Independent Marketing Consultant Relationship Specialty Start Date End Date Yoseph Fall MD [address] [place] [address] PCP - General 04/17/09 Independent Marketing Consultant Relationship Specialty Start Date End Date Yoseph Fall MD [address] [place] [address] PCP - General 04/17/09 Independent Marketing Consultant Relationship Specialty Start Date End Date Yoseph Fall MD [address] [place] [address] PCP - General 04/17/09 Independent Marketing Consultant Relationship Specialty Start Date End Date Yoseph Fall MD [address] [place] [address] PCP - General 04/17/09 Independent Marketing Consultant Relationship Specialty Start Date End Date Yoseph Fall MD [address] [place] [address] PCP - General 04/17/09 Iman Person APRN.ENGINE MECHANIC [address] [place] [address] Edi Consultant Family Medicine 04/02/24 Independent Marketing Consultant Relationship Specialty Start Date End Date Yoseph Fall MD [address] [place] [address] PCP - General 04/17/09 Iman Person APRN.ENGINE MECHANIC [address] [place] [address] [facility] 04/02/24 Independent Marketing Consultant Relationship Specialty Start Date End Date Yoseph Fall MD [address] [place] [address] PCP - General 04/17/09 mIan Person APRN.ENGINE MECHANIC [address] [place] [address] Edi Consultant [facility] Medicine 04/02/24 Nelson Robert APRN.ENGINE MECHANIC [address] [place] [address] [facility] 04/11/24 Independent Marketing Consultant Relationship Specialty Start Date End Date Yoseph Fall MD [address] [place] [address] PCP - General 04/17/09 Iman Person APRN.ENGINE MECHANIC [address] [place] [address] [facility] 04/02/24 Nelson Robert APRN.ENGINE MECHANIC [address] [place] [address] [facility] 04/11/24 Independent Marketing Consultant Relationship Specialty Start Date End Date Yoseph Fall MD [address] [place] [address] PCP - General 04/17/09 Iman Person APRN.ENGINE MECHANIC [address] [place] [address] Edi Consultant Family Medicine 04/02/24 Nelson Robert APRN.ENGINE MECHANIC [address] [place] [address] Edi Consultant Family Medicine 04/11/24 Independent Marketing Consultant Relationship Specialty Start Date End Date Yoseph Fall MD [address] [place] [address] PCP - General 04/17/09 Iman Person APRN.ENGINE MECHANIC [address] [place] [address] Edi Consultant Family Medicine 04/02/24 Nelson Robert APRN.ENGINE MECHANIC [address] [place] [address] Edi Consultant Family Medicine 04/11/24 Independent Marketing Consultant Relationship Specialty Start Date End Date Yoseph Fall MD [address] [place] [address] PCP - General 04/17/09 Iman Person APRN.ENGINE MECHANIC [address] [place] [address] Edi Consultant Family Medicine 04/02/24 Nelson Robert APRN.ENGINE MECHANIC [address] [place] [address] Edi Consultant Family Medicine 04/11/24 Independent Marketing Consultant Relationship Specialty Start Date End Date Yoseph Fall MD [address] [place] [address] PCP - General 04/17/09 Iman Person APRN.ENGINE MECHANIC [address] [place] [address] Edi Consultant Family Medicine 04/02/24 Nelson Robert APRN.ENGINE MECHANIC [address] [place] [address] Edi Consultant [facility] 04/11/24 Independent Marketing Consultant Relationship Specialty Start Date End Date Yoseph Fall MD [address] [place] [address] PCP - General 04/17/09 Iman Person APRN.ENGINE MECHANIC [address] [place] [address] Edi Consultant Family Medicine 04/02/24 Nelson Robert GLASSINE MACHINE TENDER.ENGINE MECHANIC [address] [place] [address] [facility] Independent Marketing Consultant Relationship Specialty Start Date End Date Yoseph Fall MD [address] [place] [address] PCP - General 04/17/09 Iman Person APRN.ENGINE MECHANIC [address] [place] [address] Edi Consultant Family Medicine 04/02/24 Nelson Robert APRN.ENGINE MECHANIC [address] [place] [address] [facility] 04/11/24 Independent Marketing Consultant Relationship Specialty Start Date End Date Yoesph Fall MD [address] [place] [address] PCP - General 04/17/09 Iman Person APRN.ENGINE MECHANIC [address] [place] [address] Edi Consultant Family Medicine 04/02/24 Nelson Robert APRN.ENGINE MECHANIC [address] [place] [address] Edi Consultant Family Medicine 04/11/24 Independent Marketing Consultant Relationship Specialty Start Date End Date Yoseph Fall MD [address] [place] [address] PCP - General 04/17/09 Iman Person APRN.ENGINE MECHANIC [address] [place] [address] Edi Consultant Family Medicine 04/02/24 Nelson Robert APRN.ENGINE MECHANIC [address] [place] [address] Edi Consultant [facility] Medicine 04/11/24 Independent Marketing Consultant Relationship Specialty Start Date End Date Yoseph Fall MD [address] [place] [address] PCP - General 04/17/09 Iman Person APRN.ENGINE MECHANIC [address] [place] [address] Edi Consultant Family Medicine 04/02/24 Nelson Robert APRN.ENGINE MECHANIC [address] [place] [address] [facility] 04/11/[facility] Independent Marketing Consultant Relationship Specialty Start Date End Date Yoseph Fall MD [address] [place] [address] PCP - General 04/17/09 Iman Person, GLASSINE MACHINE TENDER.ENGINE MECHANIC [address] [place] [address] [facility] 04/02/24 Nelson Robert, GLASSINE MACHINE TENDER.ENGINE MECHANIC [address] [place] [address] [facility] 04/11/24 Independent Marketing Consultant Relationship Specialty Start Date End Date Yoseph Fall MD [address] [place] [address] PCP - General 04/17/09 Nelson Robert, GLASSINE MACHINE TENDER.ENGINE MECHANIC [address] [place] [address] [facility] 04/11/24 Team Status: Active Member Role [...] Active Start: October 07, 2024 Dr. Riley Jfef DO Emergency Provider Active Start: October 07, [...] Active Start: October 07, 2024 Dr. Riley eJff DO Emergency Provider Active Start: October 07, [...] Provider Active St art: October 09, 2024 Independent Marketing Consultant Relationship Specialty Start Date End Date Yoseph Fall MD [address] [place], [place] [address] PCP - General 04/17/09 Nelson Robert, ABRAHAM.ENGINE MECHANIC [address] [place], [place] [id number] Edi Consultant Family Medicine 04/11/24 Independent Marketing Consultant Relationship Specialty Start Date End Date Yoseph Fall MD [address] [place], [place] [id number] PCP - General 04/17/09 Nelson Robert APRN.ENGINE MECHANIC [address] [place] [address] Edi Consultant [facility] 04/11/24 Independent Marketing Consultant Relationship Specialty Start Date End Date Yoseph Fall MD [address] [place] [address] PCP - General 04/17/09 Nelson Robert, GLASSINE MACHINE TENDER.ENGINE MECHANIC [address] [place] [address] [facility] 04/11/24 Independent Marketing Consultant Relationship Specialty Start Date End Date Yoseph Fall MD [address] [place] [address] PCP - General 04/17/09 Nelson Robert, GLASSINE MACHINE TENDER.ENGINE MECHANIC [address] [place] [address] [facility] 04/11/24 Independent Marketing Consultant Relationship Specialty Start Date End Date Yoseph Fall MD [address] [place] [address] PCP - General 04/17/09 Nelson Robert, GLASSINE MACHINE TENDER.ENGINE MECHANIC [address] [place] [address] [facility] 04/11/24 Independent Marketing Consultant Relationship Specialty Start Date End Date Yoseph Fall MD [address] [place] [address] PCP - General 04/17/09 Nelson Robert APRN.ENGINE MECHANIC [address] [place] [address] Edi Consultant [facility] 04/11/24 Independent Marketing Consultant Relationship Specialty Start Date End Date Yoseph Fall MD [address] [place] [address] PCP - General 04/17/09 Nelson Robert GLASSINE MACHINE TENDER.ENGINE MECHANIC [address] [place] [address] Edi Consultant [facility] 04/11/24 Independent Marketing Consultant Relationship Specialty Start Date End Date Yoseph Fall MD [address] [place] [address] PCP - General 04/17/09 Nelson Robert, GLASSINE MACHINE TENDER.ENGINE MECHANIC [address] [place] [address] Edi Consultant [facility] 04/11/24 Independent Marketing Consultant Relationship Specialty Start Date End Date Yoseph Fall MD [address] [place] [address] PCP - General 04/17/09 Nelson Robert, GLASSINE MACHINE TENDER.ENGINE MECHANIC [address] [place] [address] [facility] 04/11/24 Independent Marketing Consultant Relationship Specialty Start Date End Date Yoseph Fall MD [address] [place] [address] PCP - General 04/17/09 Nelson Robert GLASSINE MACHINE TENDER.ENGINE MECHANIC [address] [facility], [place] [address] Edi Consultant Family [facility] 04/11/24 Independent Marketing Consultant Relationship Specialty Start Date End Date Yoseph Fall MD [address] [place], [place] [address] PCP - General 04/17/09 Nelson Robert APRN.ENGINE MECHANIC [address] [facility], [place] [address] Edi Consultant [facility] 04/11/24 Team Status: Active Member Role/Relationship Status [...] Provider Active Start: September 30, 2024 Dr. Dionen Porter MD Admit Provider Active St art: [...] Provider Active Start: October 03, 2024 Dr. Rilye Jeff DO Emergency Provider Active Start: October [...] November 03, 2024 End: November 03, 2024 Independent Marketing Consultant Relationship Specialty Start Date End Date Yoseph Fall MD [address] [place], [place] [address] PCP - General 04/17/09 Nelson Robert, ABRAHAM.ENGINE MECHANIC [address] [place], [place] [address] [facility] 04/11/24 Independent Marketing Consultant Relationship Specialty Start Date End Date Yoseph Fall MD [address] [place], [place] [address] PCP - General 04/17/09 Nelson Robert APRN.ENGINE MECHANIC [address] [place], [place] [address] Edi Consultant Family Medicine 04/11/24 Independent Marketing Consultant Relationship Specialty Start Date End Date Yoseph Fall MD [address] [place] [address] PCP - General 04/17/09 Nelson Robert APRN.ENGINE MECHANIC [address] [place] [address] [facility] 04/11/24 Independent Marketing Consultant Relationship Specialty Start Date End Date Yoseph Fall MD [address] [place] [address] PCP - General 04/17/09 Nelson Robert APRN.ENGINE MECHANIC [address] [place] [address] [facility] 04/11/24 Mikayla Broussard, RN Specialty Circuit Manager [facility]ice [facility] Pall[facility] 11/24/24 Gregor Fernandez APRN.ENGINE MECHANIC [address] [place], [place] [address] Palliative Medicine Home Provider [facility] 11/24/24 Independent Marketing Consultant Relationship Specialty Start Date End Date Yoseph Fall MD [address] [place] [address] PCP - General 04/17/09 Nelson Robert GLASSINE MACHINE TENDER.ENGINE MECHANIC [address] [place] [address] [facility] 04/11/24 Mikayla Broussard, RN Specialty Circuit Manager Hospice & Palliative Medicine 11/24/24 Gregor Fernandez APRN.ENGINE MECHANIC [address] [place] [address] Palliative Medicine Home Provider [facility] 11/24/24 Independent Marketing Consultant Relationship Specialty Start Date End Date Yoseph Fall MD [address] [place], [place] [id number] PCP - General 04/17/09 Nelson Robert, GLASSINE MACHINE TENDER.ENGINE MECHANIC [address] [place], [place] [id number] [phone] Edi Consultant Family [facility] 04/11/24 Mikayla Broussard, KAREN Specialty Circuit Manager Hospice & Palliative Medicine 11/24/24 Gregor Fernandez, GLASSINE MACHINE TENDER.ENGINE MECHANIC [address] [place], [place] [address] Palliative Medicine Home Provider [facility] 11/24/24 Independent Marketing Consultant Relationship Specialty Start Date End Date Yoseph Fall MD [address] [place], [place] [id number] [phone] PCP - General 04/17/09 Nelson Robert, GLASSINE MACHINE TENDER.ENGINE MECHANIC [address] [place] [address] Edi Consultant Family [facility] 04/11/24 Mikayla Broussard, KAREN Specialty Circuit Manager Hospice & Palliative Medicine 11/24/24 Gregor Fernandez, GLASSINE MACHINE TENDER.ENGINE MECHANIC [address] [place] [address] Palliative Medicine Home Provider [facility] 11/24/24 Independent Marketing Consultant Relationship Specialty Start Date End Date Yoseph Fall MD [address] [place] [address] PCP - General 04/17/09 Nelson Robert, GLASSINE MACHINE TENDER.ENGINE MECHANIC [address] [place] [address] Edi Consultant Family [facility] 04/11/24 Mikayla Broussard, RN Specialty Circuit Manager Hospice & Palliative Medicine 11/24/24 Gregor Fernandez, GLASSINE MACHINE TENDER.ENGINE MECHANIC [address] [place], [place] [address] Palliative Medicine Home Provider [facility]iative Medicine 11/24/24 Independent Marketing Consultant Relationship Specialty Start Date End Date Yoseph Fall MD [facility] [place] [address] PCP - General 04/17/09 Nelson Robert GLASSINE MACHINE TENDER.ENGINE MECHANIC [facility] [place] [address] Edi Consultant [facility] 04/11/24 Mikayla Broussard RN Specialty Circuit Manager Hospice & Palliative Medicine 11/24/24 Gregor Fernandez, GLASSINE MACHINE TENDER.ENGINE MECHANIC [address] [place], [place] [address] Palliative Medicine Home Provider [facility] 11/24/24 Independent Marketing Consultant Relationship Specialty Start Date End Date Yoseph Fall MD [address] [place] [address] PCP - General 04/17/09 Nelson Robert GLASSINE MACHINE TENDER.ENGINE MECHANIC [address] [place] [address] Edi Consultant Family Medicine 04/11/24 Mikayla Broussard, KAREN Specialty Circuit Manager Hospice & Palliative Medicine 11/24/24 Gregor Fernandez APRN.ENGINE MECHANIC [address] [place] [address] Palliative Medicine Home Provider Hospice & Palliative [...] art: December 27, 2024 Stacy Pincumbe-Gillaspie , STOCKROOM KEEPER-C Attending Provider Active Start: December Stacy Jha [...] Provider Active Star t: December 29, 2024 Independent Marketing Consultant Relationship Specialty Start Date End Date Yoseph Fall MD [address] [place], [place] [address] PCP - General 04/17/09 Nelson Robert, GLASSINE MACHINE TENDER.ENGINE MECHANIC [address] [place], [place] [address] Edi Consultant Family Medicine 04/11/24 Mikayla Broussard, RN Specialty Circuit Manager [facility]iative Medicine 11/24/24 Gregor Fernandez, GLASSINE MACHINE TENDER.ENGINE MECHANIC [address] [place] [address] Palliative Medicine Home Provider Hospice & [...] 03, 2024 Dr. Riley Jeff DO Emergency Departar nt Physician Active Start: October 03, 2024 [...] 05, 2024 [facility] Active Start: October 05, 2024 Dr. [...] October 06, 2024 Dr. Riley Jeff Emergency [facility] nt Physician Active Start: October 06, 2024 [...] Practitioner Active Start: October 06 Dr. Junito Madird MD Nurse Practitioner Active Start: October 06, 2024 Team Status: Active Member Role/Relationship Status Dates Dr. Yoseph Fall MD Primary care physician Active Start: October 07, 2024 Dr. Riley Jeff Emergency Departar nt Physician Active Start: October 07, 2024 [...] October 07, 2024 Dr. Riley Jeff Emergency Departar nt Physician Active Start: October 07, 2024 [...] 2024 Dr. Marcel Zarate MD Emergency Depart [facility] Physician Active Start: December 26, 2024 End: December 30, 2024 Dr. Dionne Porter MD Admitting physician Active Start: December 26, 2024 End: December 30, 2024 Dr. Dionne Porter MD Nurse Practitioner Active Start: December 26, 2024 End: December 30, 2024 Dr. Lynne Schafer MD Attending physician Active Start: December 26, 2024 End: December 30, 2024 Stacy Jha STOCKROOM KEEPER-C Nurse Practitioner Active Start: December End: December 30, 2024 Dr. Alessandro Palma MD Nurse Practitioner Active Start: December 26, 2024 End: December 30, 2024 Dr. Kyle Mendenhall DO Nurse Practitioner Active Start: December 26, 2024 End: December 30, 2024 Elma Mendez STOCKROOM KEEPER-C Nurse Practitioner Active S tart: December 26, 2024 End: December 30, 2024 Mercedez Joseph STOCKROOM KEEPER-C Nurse Practitioner Active Start: December 26, 2024 End: December 30, 2024 SADIQ Paez Nurse Practitioner Active Start: December 26, 2024 End: December 30, 2024 Team Status: Active Member Role/Relationship Status Dates Dr. Yoseph Fall MD Primary care physician Active Start: December 26, 2024 Dr. Marcel Zartae MD Emergency Depart ment Physician Active Start: [...] Active Start: December 27, 2024 Stacy Jha STOCKROOM KEEPER-C Attending physician Active Start: December Stacy Jha STOCKROOM KEEPER-C Nurse Practitioner Active Start: December Team Status: [...] NP-C Attending physician Active Start: December Stacy Jah NP-C Nurse Practitioner Active Start: December Dr. [...] 2024 Dr. Marcel Zarate MD Emergency Depart [facility] Physician Active Start: December 28, 2024 [...] 2024 Dr. Marcel Zarate MD Emergency Depart [facility] Physician Active Start: December 29, 2024 Dr. Dionne Porter MD Admitting physician Active Start: December 29, 2024 Dr. Dionne Porter MD Nurse Practitioner Active Start: December 29, 2024 Dr. Lynne Schafer MD Nurse Practitioner Active Start: December 29, 2024 Stacy Jha STOCKROOM KEEPER-C Attending physician Active Start: December Stacy Jha STOCKROOM KEEPER-C Nurse Practitioner Active Start: December Dr. Alessandro [...] S tart: December 30, 2024 Mercedez Joseph STOCKROOM KEEPER-C Nurse Practitioner Active Start: December 30, 2024 [...] Start: January 25, 2025 Susan Madison NP, STOCKROOM KEEPER-C Nurse Practitioner Active Start: January 25, 2025 [...] Start: January 25, 2025 Susan Madison NP, STOCKROOM KEEPER-C Nurse Practitioner Active Start: January 25, 2025 [...] 08, 2024 Dr. Riley Jeff , Emergency Departar nt Physician Active Start: October 08, 2024 [...] 2024 End: December 30, 2024 Stacy Jha STOCKROOM KEEPER-C Nurse Practitioner Active Start: December End: December 30, 2024 Dr. Alessandro Palma MD Nurse Practitioner Active Start: December 26, 2024 End: December 30, 2024 Dr. Kyle Mendenhall DO Nurse Practitioner Active Start: December 26, 2024 End: December 30, 2024 Elma Mendez STOCKROOM KEEPER-C Nurse Practitioner Active S tart: December 26, 2024 End: December 30, 2024 Mercedez Joseph STOCKROOM KEEPER-C Nurse Practitioner Active Start: December 26, 2024 [...] Active Start: December 27, 2024 Stacy Jha STOCKROOM KEEPER-C Attending physician Active Start: December Stacy Jha STOCKROOM KEEPER-C Nurse Practitioner Active Start: December Team Status: [...] 2024 Dr. Marcel Zarate MD Emergency Depart [facility] Physician Active Start: December 28, 2024 [...] 2024 Dr. Marcel Zarate MD Emergency Depart [facility] Physician Active Start: December 28, 2024 [...] 2024 Dr. Marcel Zarate MD Emergency Depart [facility] Physician Active Start: December 29, 2024 [...] 2024 Dr. Marcel Zarate MD Emergency Depart [facility] Physician Active Start: December 30, 2024 [...] Start: January 25, 2025 Susan Madison NP, STOCKROOM KEEPER-C Nurse Practitioner Active Start: January 25, 2025 Haylee Shafer , STOCKROOM KEEPER-C Nurse Practitioner Active Start: January 25, 2025 [...] Start: January 25, 2025 Susan Madison NP, STOCKROOM KEEPER-C Nurse Practitioner Active Start: January 25, 2025 Haylee Shafer STOCKROOM KEEPER-C Nurse Practitioner Active Start: January 25, 2025 [...] Active Start: January 26, 2025 Dr. Levi Mercdao MD Nurse Practitioner Active Start: January 26, [...] Active Start: January 26, 2025 Susan Madison STOCKROOM KEEPER, STOCKROOM KEEPER-C Nurse Practitioner Active Start: January 26, 2025 [...] Active Start: January 26, 2025 Susan Madison STOCKROOM KEEPER, STOCKROOM KEEPER-C Nurse Practitioner Active Start: January 26, 2025 [...] Active Start: January 26, 2025 Susan Madison STOCKROOM KEEPER, STOCKROOM KEEPER-C Nurse Practitioner Active Start: January 26, 2025 Haylee Shafer , STOCKROOM KEEPER-C Nurse Practitioner Active Start: January 26, 2025 [...] Start: January 27, 2025 Susan Madison NP, STOCKROOM KEEPER-C Nurse Practitioner Active Start: January 27, 2025 Haylee Shafer STOCKROOM KEEPER-C Nurse Practitioner Active Start: January 27, 2025 Dr. Amy Keenan MD Nurse Practitioner Active Start: January 27, 2025 Dr. Debby Gu MD Attending physician Active Start: January 27, 2025 Dr. Debby Gu MD Nurse Practitioner Active Start: January 27, 2025 Team Status: Active Member Role/Relationship Status Dates Dr. Yosehp Fall MD Primary care physician Active Start: [...] Active Start: January 28, 2025 Susan Madison STOCKROOM KEEPER, STOCKROOM KEEPER-C Nurse Practitioner Active Start: January 28, 2025 Haylee Shafer STOCKROOM KEEPER-C Nurse Practitioner Active Start: January 28, 2025 [...] 2024 Dr. Marcel Zarate MD Emergency Depart [facility] Physician Active Start: December 26, 2024 End: December 30, 2024 Dr. Dionne Porter MD Admitting physician Active Start: December 26, 2024 End: December 30, 2024 Dr. Dionne Porter MD Nurse Practitioner Active Start: December 26, 2024 End: December 30, 2024 Dr. Lynne Schafer MD Attending physician Active Start: December 26, 2024 End: December 30, 2024 Stacy Jha STOCKROOM KEEPER-C Nurse Practitioner Active Start: December End: December 30, 2024 Dr. Alessandro Palma MD Nurse Practitioner Active Start: December 26, 2024 End: December 30, 2024 Dr. Kyle Mendenhall DO Nurse Practitioner Active Start: December 26, 2024 End: December 30, 2024 Elma Mendez NP-C Nurse Practitioner Active S tart: December 26, 2024 End: December 30, 2024 Mercedez Joseph STOCKROOM KEEPER-C Nurse Practitioner Active Start: December 26, 2024 [...] Start: December 27, 2024 Stacy Jha , STOCKROOM KEEPER-C Attending physician Active Start: December Stacy Jha , STOCKROOM KEEPER-C Nurse Practitioner Active Start: December Team Status: [...] Active Start: December 27, 2024 Stacy Jha STOCKROOM KEEPER-C Nurse Practitioner Active Start: December Dr. Alessandro [...] Active Start: December 28, 2024 Stacy Jha STOCKROOM KEEPER-C Attending physician Active Start: December Stacy Jha NP-C Nurse Practitioner Active Start: December Dr. Alessandro Palma MD Nurse Practitioner Active Start: December 28, 2024 Dr. Kyle Mendenhall DO Nurse Practitioner Active Start: December 28, 2024 MADID SifuentesC Nurse Practitioner Active S tart: December [...] 2024 Dr. Marcel Zarate MD Emergency Depart [facility] Physician Active Start: December 29, 2024 [...] S tart: December 29, 2024 Mercedez Joseph STOCKROOM KEEPER-C Nurse Practitioner Active Start: December 29, 2024 SADIQ Paez Nurse Practitioner Active Start: December 29, 2024 Team Status: Active Member Role/Relationship Status Dates Dr. Yoseph Fall MD Primary care physician Active Start: December 29, 2024 Dr. Marcel Zarate MD Emergency Depart [facility] Physician Active Start: December 29, 2024 [...] Start: January 25, 2025 Susan Madison NP, STOCKROOM KEEPER-C Nurse Practitioner Active Start: January 25, 2025 [...] Active Start: January 25, 2025 Susan Madison STOCKROOM KEEPER, STOCKROOM KEEPER-C Nurse Practitioner Active Start: January 25, 2025 [...] Start: January 26, 2025 Susan Madison NP, STOCKROOM KEEPER-C Nurse Practitioner Active Start: January 26, 2025 [...] Active Start: January 26, 2025 Susan Madison STOCKROOM KEEPER, STOCKROOM KEEPER-C Nurse Practitioner Active Start: January 26, 2025 [...] Active Start: January 26, 2025 Dr. Murtaza Tmaez MD Nurse Practitioner Active Start: January 26, 2025 Dr. Austin Pathak MD Nurse Practitioner Active Start: January 26, 2025 Dr. Jia Krishna MD Nurse Practitioner Active Start: January 26, 2025 Dr. Rob Augustin MD Nurse Practitioner Active Start: January 26, 2025 Susan Madison NP, STOCKROOM KEEPER-C Nurse Practitioner Active Start: January 26, 2025 Haylee Shafer , STOCKROOM KEEPER-C Nurse Practitioner Active Start: January 26, 2025 [...] Start: January 27, 2025 Susan Madison NP, STOCKROOM KEEPER-C Nurse Practitioner Active Start: January 27, 2025 Haylee Shafer STOCKROOM KEEPER-C Nurse Practitioner Active Start: January 27, 2025 [...] Active Start: January 28, 2025 Susan Madison STOCKROOM KEEPER, STOCKROOM KEEPER-C Nurse Practitioner Active Start: January 28, 2025 Haylee Shafer STOCKROOM KEEPER-C Nurse Practitioner Active Start: January 28, 2025 [...] physician Active Start: January 31, 2025 Dr. eDbby Gu MD Nurse Practitioner Active Start: January [...] 2025 End: February 08, 2025 Ingris Irwin STOCKROOM KEEPER, STOCKROOM KEEPER-C Attending physician Active Start: February 08, 2025 [...] MULTIPLE Michelle Marie MD [address] [place] [address] Respiratory [place] [address] [place] [address] Referral ID Status Reason Start Date Expiration Date V isits Requested Visits Authorized [id number] Closed Auto-Generate d Referral 01/13/2022 02/12/2023 1 [...] Comments Medication Problem Patient Update Reason Comments [facility] patient update Reason Onset Date Comments Transition Of Care 10/10/2024 Reason Onset Date Comments Refill Request 10/11/2024 Reason Comments PT Delay in Care Order Reason Onset Date Comments Refill Request 10/12/2024 Reason Comments Hospital F/U [facility] [facility] [place] Reason Comments Orders Occupation Therapy Plan of care SW Consu lt Physical Therapy Plan of Care Reason Comments Patient Update Reason Comments pall med- [id number] Initial Consult Reason Comments Home Care Management Refill Request Reason Comments order question Reason Comments No Show Specialty Diagnoses / Procedures Referred By Contac t Referred To Contact Hospice & Palliative Medicine Diagnoses Stage 3 severe COPD by GOLD classification ([facility]) Generalized osteoarthrosis, involving multiple sites Generalized anxiety disorder Chronic low back pain with sciatica, sciatica laterality unspecified, unspecified back pain laterality Procedures CONSULT TO PALLIATIVE CARE OFFICE/OUTPATIENT [facility] 60 MINUTES Yoseph Fall MD [address] [place] [address] Phone: tel: fax: Referral ID Status Reason Start Date Expiration Date V isits Requested Visits Authorized [id number] Closed PCP Requested Referral 10/20/2024 10/20/2025 1 1 Reason Comments Patient Request Patient Update Specialty Diagnoses / Procedures Referred By Contac t Referred To Contact Hospice & Palliative Medicine Diagnoses Stage 3 severe COPD by GOLD classification (H[facility]) Chronic low back pain with sciatica, sciatica laterality unspecified, unspecified back pain laterality Procedures CONSULT TO PALLIATIVE CARE OFFICE/OUTPATIENT [facility] 60 MINUTES Yoseph Fall MD [address] [place] [address] Phone: tel: fax: Referral ID Status Reason Start Date Expiration Date V isits Requested Visits Authorized [id number] Closed PCP Requested Referral 10/23/2024 10/23/2025 1 1 Reason Comments Symptom Management Reason Onset Date Comments Refill Request 11/23/2024 Reason Comments Care Coordination Reason Comments [facility] Nursing Call Reason Onset Date Comments [...] and content) DATE CREATED AUTHOR 01/30/2025 [facility] DATE CREATED AUTHOR AUTHOR'S ORGANIZ ATION 02/14/2025 [facility] DATE CREATED AUTHOR AUTHOR'S SHARITA ATION 02/20/2025 [facility] FOR RECORDS PERTAINING TO PATIENTS WHO [...] BE BASED ON THE PRIMARY CLINICAL RECORDS. [facility] [employer] [facility]. provides no warranty or guarantee of the accuracy or completeness of information in this document.
[2025-02-24 17:11] LABS: Allen Test Positive; Base Excess 10 mmol/L (-2 to +2); FI02 35.0; PEEP 5; PO2 29 mmHG (75-100); RR 14; SITE L Brach; SO2 39 % (94-98)
[2025-02-24 17:27] LABS: Troponin T High Sens 2 HR 26 ng/L (<=14)
--- NOTE | 2025-02-24 17:28 | HP.PCM.HOS_ITS ---
HPI - General General Date of Admission: 02/24/25 Date of Service: 02/24/25 Chief Complaint: Shortness of breath/AMS HPI Narrative DENIA MARC, is a 69 F who presents was discharged from [facility] about a day ago was brought by EMS for worsening shortness of breath on, hypoxia, SpO2 84% home oxygen 3 L, and then 88% on 12 L of nonbreathing mask. ETCO2 80 mmHg. In ED, patient was put temporarily on BiPAP and then intubated because of extreme shortness of breath/altered mental status Patient's boyfriend arrived later and after talking to him, patient did not had chest pain pressure or tightness. Denies fever. Might have cough which is not clear. Patient on IV propofol and fentanyl drip after intubation. Blood pressure was high but came down after starting IV propofol. Lab, imaging and assessment and plan discussed in assessment plan [facility] Medical History Palliative care encounter Acute anemia Acute respiratory insufficiency Anxiety Anxiety and depression Respiratory insufficiency COPD with acute exacerbation Afib Aortic valve stenosis RLS (restless legs syndrome) History of ETOH abuse Chronic hypoxic respiratory failure, on home oxygen therapy COPD (chronic obstructive pulmonary disease) Anxiety Depression Smoker Asthma Hypertension Migraines Home Medications Medication Instructions Recorded Last Taken Type albuterol sulfate 90 mcg/actuation 1 - 2 puff inhalati on Q4H PRN PRN 04/18/13 09/23/14 History aerosol inhaler (Ventolin HFA) Bronchodialation montelukast 10 mg tablet 10 mg PO DAILY allergies 09/23/14 History 10 MG tiotropium bromide 18 mcg capsule 1 puff inhalation DA BINU wheezing 04/18/13 09/23/14 History with inhalation device (Spiriva with HandiHaler) Oxygen, Home [Home Oxygen] 2.5 lpm PRN PRN Dyspnea 09/23/14 History sertraline 100 mg tablet 100 mg PO BID mood 10/22/13 09/23/14 History Ropinirole Hcl 0.25 mg PO QHS restless legs 09/23/14 Unknown History ipratropium 0.5 mg-albuterol 3 mg 3 ml inhalation Q4HW A.RT wheezing 05/13/16 Unknown Rx (2.5 mg base)/3 mL nebulization ##30 soln cholecalciferol (vitamin D3) 50 50 mcg PO DAILY vitami n 10/18/23 Unknown History mcg (2,000 unit) capsule (Vitamin D3) ipratropium 0.5 mg-albuterol 3 mg 3 ml inhalation Q6H PRN shortness 10/18/23 Unknown Rx (2.5 mg base)/3 mL nebulization of breath or wheezing #180 mL soln buspirone 10 mg tablet 10 mg PO BID anxiety 5 Unknown History hydrocodone-acetaminophen 5-325mg 1 tab PO BID PRN PRN pain 10/03/24 Unknown History 5mg-325mg nicotine 14 mg/24 hr daily 14 mg transdermal DAILY prn #28 ea 10/09/24 Unknown Rx transdermal patch apixaban 5 mg tablet (Eliquis) 5 mg PO BID blood thinn e #60 tabs 11/03/24 Unknown Rx carvedilol 6.25 mg tablet 6.25 mg PO BID bp #60 tabs 0 11/03/24 Unknown Rx furosemide 20 mg tablet 20 mg PO DAILY fluid overloa d 12/27/24 Unknown History pantoprazole 40 mg tablet,delayed 40 mg PO BID GERD #6 0 tabs 12/30/24 Unknown Rx release verapamil 180 mg 24 hr 180 mg PO BID #60 caps Unknown Rx capsule,extended release OXYGEN - Supplemental ([facility] hypoxia 01/27/25 Unknown Hi story INFORMATIONAL USE ONLY) alprazolam 0.25 mg tablet 0.25 mg PO Q6H PRN PRN Anxie ty 3 01/31/25 Unknown Rx days #12 tabs potassium chloride 10 mEq 10 meq PO DAILYCM 30 days #0 tabs 01/31/25 Unknown Rx tablet,extended release(part/cryst) prednisone 20 mg tablet See Taper PO BREAKFAST #32 t abs 01/31/25 Unknown Rx bisacodyl 10 mg rectal suppository 10 mg OH ONCE 02/08 Unknown History cyanocobalamin (vitamin B-12) 500 500 mcg PO QDAY 01/24 10/18 Unknown History mcg tablet Allergy/AdvReac Type Severity Reaction Status Date / Time No Known Allergies Allergy Verified 02/12/25 08:52 Family History Mother Hypertension Throat cancer Father Hypertension Stomach cancer Surgical History H/O exploratory laparotomy History of lung surgery History of cholecystectomy Social History household members: significant other and none housing: apartment Smoking Status: Former smoker alcohol intake: former substance use type: does not use ROS ROS Narrative 14 system ROS unobtainable as patient is intubated on ventilator. Review of Systems ROS Unobtainable: due to endotracheal tube and due to mental status Vital Signs Vital Signs Vital Signs: 02/24/25 13:07 02/24/25 13:11 02/24/25 13:20 Temperature 99.6 F H 99.6 F H Temperature Source Oral Oral Pulse Rate 104 H 104 H Respiratory Rate 24 H 24 H Respiratory Effort Respiratory Depth Respiratory Pattern Blood Pressure 148/64 H 148/64 H Blood Pressure Mean 92 92 Pulse Ox 100 100 92 Oxygen Delivery Method Non-Rebreather Nasal Cannula Nasal Cannula Oxygen Flow Rate (L/min) 10 3 3 Fraction of Inspired Oxygen (FIO2) 02/24/25 13:30 02/24/25 14:11 02/24/25 14:15 Temperature 99.6 F H Temperature Source Oral Pulse Rate 99 102 H Respiratory Rate 26 H 26 H Respiratory Effort Short of Breath Labored Pursed Lip Respiratory Depth Deep Respiratory Pattern Tachypnea Tachypnea Blood Pressure 139/68 H Blood Pressure Mean 91 Pulse Ox 98 96 Oxygen Delivery Method Nasal Cannula Bi-pap Oxygen Flow Rate (L/min) 3 Fraction of Inspired Oxygen (FIO2) 40 02/24/25 15:22 02/24/25 15:23 02/24/25 15:28 Temperature Temperature Source Pulse Rate 97 Respiratory Rate 19 H 21 H Respiratory Effort Labored Accessory Muscle Use Pursed Lip Respiratory Depth Normal Respiratory Pattern Tachypnea Blood Pressure 121/66 H Blood Pressure Mean 84 Pulse Ox 96 Oxygen Delivery Method Nasal Cannula Mechanical Ventilator Oxygen Flow Rate (L/min) 3 Fraction of Inspired Oxygen (FIO2) 02/24/25 15:30 02/24/25 15:39 02/24/25 16:00 Temperature Temperature Source Pulse Rate 95 102 H 105 H Respiratory Rate 21 H 16 16 Respiratory Effort Respiratory Depth Respiratory Pattern Normal Blood Pressure 140/62 H 177/95 H Blood Pressure Mean 87 119 Pulse Ox 100 96 100 Oxygen Delivery Method Oxygen Flow Rate (L/min) Fraction of Inspired Oxygen (FIO2) 50 02/24/25 16:15 02/24/25 16:17 02/24/25 16:30 Temperature Temperature Source Pulse Rate 106 H 100 102 H Respiratory Rate 14 16 14 Respiratory Effort Respiratory Depth Respiratory Pattern Normal Blood Pressure 183/92 H Blood Pressure Mean 118 Pulse Ox 100 99 Oxygen Delivery Method Oxygen Flow Rate (L/min) Fraction of Inspired Oxygen (FIO2) 02/24/25 16:41 02/24/25 16:45 02/24/25 17:00 Temperature Temperature Source Pulse Rate 101 H 101 H 102 H Respiratory Rate 15 18 16 Respiratory Effort Respiratory Depth Respiratory Pattern Blood Pressure 152/77 H 118/67 118/67 Blood Pressure Mean 100 82 82 Pulse Ox 91 96 97 Oxygen Delivery Method Oxygen Flow Rate (L/min) Fraction of Inspired Oxygen (FIO2) 02/24/25 17:15 Temperature Temperature Source Pulse Rate 100 Respiratory Rate 18 Respiratory Effort Respiratory Depth Respiratory Pattern Blood Pressure 102/68 Blood Pressure Mean 79 Pulse Ox 93 Oxygen Delivery Method Oxygen Flow Rate (L/min) Fraction of Inspired Oxygen (FIO2) Weight Weight: 140 lb 6.951 oz Body Mass Index (BMI) 24.0 Physical Exam Narrative General: Intubated, sedated HEENT: Atraumatic, Normocephalic. Oral: ETT tube Neck: Supple, could not evaluate JVD negative Carotid Bruits Chest wall/Lungs: Air entry diminished in all lung bradley. Coarse wheezing/rhonchi Cardiovascular: Sinus tachycardia, ejection systolic murmur Abdomen: Bowel Sounds Present, Soft, Non Tender, Non-Distended : Alvarenga catheter inserted in ED no renal angle tenderness. No suprapubic tenderness. Extremities: Minimal to mild, chronic edema, Capillary Refill Less than 3 Seconds Skin: No rashes, No breakdown Musculoskeletal: No Tenderness to Palpation of Joints or Extremities. ROM could not be evaluated Neurological: Neuroexam could not be evaluated,sedated Psych/Mental Status: Intubated/flat affect Results Lab / Micro Data 02/24/25 13:16 02/24/25 13:16 Labs: Laboratory Results - last 24 hr 02/24/25 13:16: WBC 11.3 H, RBC 3.74 L, Hgb 8.9 L, Hct 30.5 L, MCV 81.6, MCH 23.8 L, MCHC 29.2 L, RDW Std Deviation 46.3 H, RDW Coeff of Augustin 15.4 H, Plt Count 168, MPV 10.2, Immature Gran % (Auto) 1.300 H, Neut % (Auto) 83.9 H, Lymph % (Auto) 9.1 L, Dickson % (Auto) 5.2, Eos % (Auto) 0.1, Baso % (Auto) 0.4, Absolute Neuts (auto) 9.5 H, Absolute Lymphs (auto) 1.02, Nucleated RBC % 0, Sodium 137, Potassium 5.0, Chloride 92 L, Carbon Dioxide 37.0 H, Anion Gap 7, BUN 25 H, C reatinine 0.48 L, Estim Creat Clear Calc 57.31, Est GFR (MDRD) Non-Af 102, B UN/Creatinine Ratio 52.3 H, Glucose 141 H, Lactic Acid < 1.0, Calcium 8.8, T roponin T High Sens 27 H D, NT pro BNP II 1746 H 02/24/25 16:30: Troponin T Hi Sens 2 Hr 26 H Micro: Microbiology 02/24/25 13:36 Mucosa - Nose SARS-CoV-2, Influenza & RSV (PCR) - Final ABG Data ABG results: ABG 02/24/25 02/24/25 02/24/25 13:50 15:06 17:05 Specimen Type RENNY ART ART Sample Site Not entered L Radial L Brach pH 7.10 L* 7.22 L Bicarbonate Actual 38.5 H 37.3 H Total CO2 42 40 Base Excess 9 H 10 H O2 Saturation 91 L 39 L O2 % 35.0 35.0 ABG pCO2 123.4 H* 92.3 H* ABG pO2 87 29 L* Issa Test Positive Positive VBG pH 7.15 L* VBG pO2 52 H VBG HCO3 40 H VBG Total CO2 43 H VBG O2 Sat (Calc) 71 H VBG Base Excess 11 H POC Mix VBG pCO2 Pt Tmp 113.4 H* Respiration Rate 12 14 O2 Delivery Device Not entered BiPAP Adult Vent Vent Mode BiLevel AC Tidal Volume 400.0 400.0 POC PEEP 8 5 Crit Call To/Read Back Yes Yes Yes Blood Gas Notified Whom robert robert robert Blood Gas Notified Time 13:52:25 15:08:11 17:07:00 Assessment & Plan Assessment/Plan (1) Acute exacerbation of chronic obstructive pulmonary disease: (2) Acute on chronic respiratory failure with hypoxia and hypercapnia: PLAN: Plan This 69-year-old female being admitted for acute on chronic combined respiratory failure 1. Acute on chronic combined hypercarbic and hypoxic respiratory failure most likely due to COPD exacerbation: Patient is intubated. Chest x-ray today reviewed. ETT and OG tube in good position. Portable suboptimal quality chest x-ray shows increased interstitial markings suggestive of COPD with flattened diaphragm. Official report pending. ABG 7.10/123/87/30 8.5. It is suggestive of acute hypercarbic respiratory failure with high AA gradient/hypoxia 2. COPD exacerbation: Patient is being managed on scheduled bronchodilator, IV Solu-Medrol, Mucinex, incentive spirometry and Pep. In first week of January 2025 for similar condition due to COPD exacerbation from multifocal pneumonia. Patient had some dried blood in the mouth probably from intubation. CT abdomen/pelvis was done even though no clinical indication. Not officially reported yet but imagings reviewed. It shows fecal matter. 3. Typical pneumonia unlikely possible interstitial/atypical: Patient had 99.6, low-grade with mild sinus tachycardia: Empirically started on IV Zosyn. MRSA nasal screen ordered. Pneumonia workup ordered. Triple PCR for SARS-CoV-2, flu and RSV are negative. Chest CTA negative for PE but main pulmonary artery segment enlarged 3.07 cm dilated suggestive of pulmonary artery hypertension. Thickening of interlobular septa with no discrete pulmonary mass or mari consolidation. Mild atelectasis in the lingula. 4. Paroxysmal A-fib, severe aortic stenosis: Currently twelve-lead EKG reviewed shows sinus tachycardia 102 beats from, ZHANE, QTc 469 ms. During last admission in February 17, she was A-fib with RVR. Echo in January 2025 shows EF 70% with severe aortic stenosis and patient on workup for TAVR in [place] but not done yet as per patient's boyfriend, present in ED. She also had heart cath about 1 to 2 months ago there as an workup, no document available to review. Diuresis as needed. Mildly elevated troponin, 27, 26. Third troponin pending. 5. Anxiety and depression: Currently intubated. 6. DVT prophylaxis: On Eliquis 5 mg p.o. twice daily Living will/advanced directive/end of life care: Patient does not have living will or advanced directive. Her boyfriend presented to the ER is next of kin rethe process of making power of melter loader for health. After discussion of benefits/risks procedures involved with full code, DNR CC arrest and DNR CC, the patient's boyfriend opted for full code although she is already intubated Patient does want artificial life support including intubation, tube feed, ventilator and/chest compression, central venous catheter, vasopressor and DC shock if needed Total time spent in [id number] encounter in discussion of advanced directive 17 minutes. Microbiology Past 72 Hours 02/24/25 13:36 Mucosa - Nose SARS-CoV-2, Influenza & RSV (PCR) - Final Laboratory Results 02/24/25 13:16: WBC 11.3 H, RBC 3.74 L, Hgb 8.9 L, Hct 30.5 L, MCV 81.6, MCH 23.8 L, MCHC 29.2 L, RDW Std Deviation 46.3 H, RDW Coeff of Augustin 15.4 H, Plt Count 168, MPV 10.2, Immature Gran % (Auto) 1.300 H, Neut % (Auto) 83.9 H, Lymph % (Auto) 9.1 L, Dickson % (Auto) 5.2, Eos % (Auto) 0.1, Baso % (Auto) 0.4, Absolute Neuts (auto) 9.5 H, Absolute Lymphs (auto) 1.02, Nucleated RBC % 0, Sodium 137, Potassium 5.0, Chloride 92 L, Carbon Dioxide 37.0 H, Anion Gap 7, BUN 25 H, C reatinine 0.48 L, Estim Creat Clear Calc 57.31, Est GFR (MDRD) Non-Af 102, B UN/Creatinine Ratio 52.3 H, Glucose 141 H, Lactic Acid < 1.0, Calcium 8.8, T roponin T High Sens 27 H D, NT pro BNP II 1746 H 02/24/25 13:50: Specimen Type RENNY, Sample Site Not entered, VBG pH 7.15 L*, VBG pO2 52 H, VBG HCO3 40 H, VBG Total CO2 43 H, VBG O2 Sat (Calc) 71 H, VBG Base Excess 11 H, POC Mix VBG pCO2 Pt Tmp 113.4 H*, O2 Delivery Device Not entered, Crit Call To/Read Back Yes, Blood Gas Notified Whom robert, Blood Gas Notified Time 13:52:25 02/24/25 15:06: Specimen Type ART, Sample Site L Radial, pH 7.10 L*, Bicarbonate Actual 38.5 H, Total CO2 42, Base Excess 9 H, O2 Saturation 91 L, O2 % 35.0, ABG pCO2 123.4 H*, ABG pO2 87, Issa Test Positive, Respiration Rate 12, O2 Delivery Device BiPAP, Vent Mode BiLevel, Tidal Volume 400.0, POC PEEP 8, Crit Call To/Read Back Yes, Blood Gas Notified Whom robert, Blood Gas Notified Time 15:08:11 02/24/25 16:30: Magnesium Pending, Troponin T Hi Sens 2 Hr 26 H 02/24/25 17:05: Specimen Type ART, Sample Site L Brach, pH 7.22 L, Bicarbonate Actual 37.3 H, Total CO2 40, Base Excess 10 H, O2 Saturation 39 L, O2 % 35.0, A BG pCO2 92.3 H*, ABG pO2 29 L*, Issa Test Positive, Respiration Rate 14, O2 Delivery Device Adult Vent, Vent Mode AC, Tidal Volume 400.0, POC PEEP 5, Crit Call To/Read Back Yes, Blood Gas Notified Whom robert, Blood Gas Notified Time 17:07:00 Clinical Impression(s) from Imaging Studies Abdomen/Pelvis CT 02/24/25 15:10 IMPRESSION: 1. Diffuse biliary ductal prominence. No obstructing lesions seen. Findings can be seen in the postcholecystectomy state however would correlate with clinical signs of cholestasis. 2. Dependent atelectasis/infiltrates in both lower lobes. 3. Bilateral interlobular septal thickening, likely interstitial edema. Reading Location: [facility] Brain CT 02/24/25 15:10 IMPRESSION: 1. No acute intracranial abnormality. 2. Minimal left parietal scalp soft tissue swelling. Reading Location: [facility] Chest CTA 02/24/25 15:10 IMPRESSION: Pulmonary artery hypertension. Negative for pulmonary embolism Reading [facility] Charges/Coding Visit Charges Inpatient E&M: 46540 Init Hosp L3 Procedures Hospitalists Procedures: 49081 Advncd Care Plan 30 Min
--- OUTSIDE RECORDS SUMMARY | 2025-02-24 17:41 | XMS RPT_ITS | CCD ---
Author Organization [facility] Care Team Providers Care Corporate Development Associate Name Role Phone Yoseph Fall MD Primary Care Provider Dr. Yoseph Fall Primary Care Provider Dr. Dallas Mena Emergency Provider Dr. José Cunningham Admit Provider Unavailabl e Dr. José Cunningham Other Provider Unavailabl e Dr. Jan Bolanos Attending Provider Dr. Jan Bolanos Other Provider Yoseph Fall MD Primary Care Provider Yoseph Fall MD Primary Care Provider Tannhof DOCUMENT DESIGN SPECIALIST.SHIPPING CHECKER, Iman Unavailable Jt DOCUMENT DESIGN SPECIALIST.SHIPPING CHECKER, Nelson Unavailable Tannhof DOCUMENT DESIGN SPECIALIST.SHIPPING CHECKER Iman Unavailable Unavail able Tannhof DOCUMENT DESIGN SPECIALIST.SHIPPING CHECKER, Iman Unavailable Dr. Yoseph Fall MD Primary [...] Provider Charley BABCOCK, Lindsay Soliz Attending Provider Saul JONES, Mikayla Unavailable Unavailable Rebecca DOCUMENT DESIGN SPECIALIST.SHIPPING CHECKER, Gregor Unavailable Unavailable Primary Care Provider Unavailizzy Zarate MD, Dr. Rod Emergency Provider Yudelka FORMING MILL OPERATOR-C, Stacy Other Provider Yudelka FORMING MILL OPERATOR-C, Stacy Attending Provide r Dr. Kyle Mendenhall DO Other Provider Andrea FORMING MILL OPERATOR-C, Elma Other Provider Jake FORMING MILL OPERATOR-C, Mercedez Other Provider Jackie Urbano Other Provider [phone] Dr. Kyle Mendenhall DO Attending Provider Eufemia [...] Dr. Rod Emergency Department Phys ician Yudelka FORMING MILL OPERATOR-C, Stacy Nurse Practitione r Za CRUM, Dr. Wright Nurse Practitioner Andrea FORMING MILL OPERATOR-C, Elma Nurse Practitioner Jake FORMING MILL OPERATOR-C, Mercedez Nurse Practitioner Jackie Urbano Nurse Practitioner Yudelka FORMING MILL OPERATOR-C, Stacy Attending Physici an Gilmar OWEN, Dr. [...] Practitioner Ramirez CRUM, Dr. Ashraf Nurse Practitioner [phone] Yadira OWEN, Dr. José Mcdonough Nurse Practitioner Festus OWEN, Dr. Lau Nurse Practitioner Robert OWEN, Dr. Cunningham Nurse Practitioner Tim OWEN, Dr. Barkley Nurse Practitioner Israel OWEN, Dr. Alfredo Nurse Practitioner Ephraim OWEN, Dr. Evans Nurse Practitioner [phone] Marvin OWEN, Dr. Lin Nurse Practitioner [phone] Oscar OWEN, Dr. Naik Nurse Practitioner Julia OWEN, Dr. Dan Nurse Practitioner Unavail beata rAaujo MD, Dr. Broderick Nurse Practitioner Jess OWEN, Dr. Sims Nurse Practitioner William OWEN, Dr. Lee Nurse Practitioner Lisa OWEN, Dr. Bess Nurse Practitioner [phone] Akilah CRUM, Dr. Clay Nurse Practitioner Jelena OWEN, Dr. Velazco Nurse Practitioner Mak OWEN, Dr. Ojeda Nurse Practitioner Reza CRUM, Dr. Castro Nurse Practitioner [phone] Dashawn OWEN, Dr. Hauser Nurse Practitioner Kathleen rebeka Pathak MD, Dr. Avila Nurse Practitioner [phone] Erendira OWEN, Dr. Ro Nurse Practitioner Charli OWEN, Dr. Rivas Nurse Practitioner [phone] Los FORMING MILL OPERATOR-C, Susan Nurse Practitioner Soni FORMING MILL OPERATOR-C, Haylee Soliz Nurse Practitioner Dr. Andriy Guzmán [...] Melissa OWEN, Dr. Seth Nurse Practitioner [phone] Karo OWEN, Dr. Ramirez Nurse Practitioner Kamari OWEN, Dr. Meade Nurse Practitioner Ramirez CRUM, Dr. Ashraf Nurse Practitioner [phone] Yadira OWEN, Dr. José Mcdonough Nurse Practitioner Festus OWEN, Dr. Lau Nurse Practitioner Robert OWEN, Dr. Cunningham Nurse Practitioner [phone] Tim OWEN, Dr. Barkley Nurse Practitioner Israel OWEN, Dr. Alfredo Nurse Practitioner Ephraim OWEN, Dr. Evans Nurse Practitioner [phone] Marvin OWEN, Dr. Lin Nurse Practitioner Oscar [...] Reza CRUM, Dr. Castro Nurse Practitioner [phone] Dashawn OWEN, Dr. Hauser Nurse Practitioner Kathleen rebeka Pathak MD, Dr. Avila Nurse Practitioner Erendira OWEN, Dr. Ro Nurse Practitioner Charli OWEN, Dr. Rivas Nurse Practitioner Los FORMING MILL OPERATOR-C, Susan Nurse Practitioner Soni FORMING MILL OPERATOR-C, Haylee Soliz Nurse Practitioner Shlomo OWEN, Dr. [...] Consulting Unavailable White, Dionne L Admitting Unavailable [facility] Primary Care Unavailable Stacy Jha Consulting Unavai lable Louie, Alessandro Consulting Unavailable Friend, Kyle Consulting Unavailable Elma Mendez Consulting Unavailable Mercedez Joseph Consulting Unavailable Jackie Henry Consulting Unavailable Koram, Lynne Nhung Consulting Unavailable Stacy Jha Attending [facility] Primary Care Unavailable White, Dionne L Consulting Unavailable White, Dionne L Admitting Unavailable WhiteDionne L Attending Unavailable Dillon Lopez Attending Unavailable [facility] Primary Care Unavailable Louie, Alessandro Referring Unavailable Koram, Lynne Nhung Referring Unavailable Friend, Kyle Attending Unavailable Jan Bolanos Attending Unavailable Jessica Meraz Attending Unavailable [facility] Primary Care Unavailable Louie, Alessandro Admitting Unavailable Louie, Alessandro Consulting Unavailable Debby Gu Attending Unavailable [facility] Primary Care Unavailable White, Dionne L Consulting Unavailable White, Dionne L Admitting Unavailable Louie, Alessandro Attending Unavailable [facility] Primary Care Unavailable Jan Bolanos Consulting Unavailable Junito Madrid Consulting Unavailable Koram, Lynne Nhung Consulting Unavailable Chanomelrose , Dr. Arredondo Primary Care Physician Charlotte [...] th every six hours as needed HYDROcodone-acetaminophen (Bliss) 5-325 MG tablet Take 1 tablet by [...] Do not start before June 15, 2023. [id number] 200 actuat albuterol 0.09 mg/actuat metered dose [...] GOLD classification ([facility]) Take 1 tablet by mouth [...] Active Start: 12-24-2023 take 1 puff(s) by [facility] twice daily fluticasone-salmeterol (ADVAIR DISKUS) [...] Discontinued Start: 05-18-2023 take 1 puff(s) by [facility] twice daily fluticasone-salmeterol (ADVAIR DISKUS) 500-50 mcg/dose dsdv Inhale 1 Puff as instructed two times a day. Rinse and gargle mouth with water after use. 3 Each 3 05/18/2023 Active Start: 03-17-2023 take 1 puff(s) by mo [facility] twice daily fluticasone-salmeterol (ADVAIR DISKUS) 500-50 mcg/dose [...] Start: 12-31-2021 take 1 puff(s) by mo [facility] twice daily fluticasone-salmeterol (ADVAIR DISKUS) 500-50 mcg/dose dsdv Inhale 1 Puff as instructed twice daily. Rinse and gargle mouth with water after use. 3 Each 3 12/31/2021 Active Start: 04-21-2021 take 1 puff(s) by mo [facility] twice daily fluticasone-salmeterol (ADVAIR DISKUS) 500-50 mcg/dose dsdv Inhale 1 Puff as instructed twice daily. Rinse and gargle mouth with water after use. 3 Each 3 04/21/2021 Active Start: 04-21-2021 take 1 puff(s) by mo [facility] twice daily fluticasone-salmeterol (ADVAIR DISKUS) 500-50 mcg/dose [...] een cheek and gum as needed. nystatin [id number] unt/ml oral suspension (20 sources) Polyene Antifungal [...] GOLD classification ([facility]) Take 1.5 pills every day [...] GOLD classification ([facility]) Take 1.5 tablets by mouth [...] CONTE (20 sources) Start: 07-17-2021 PULSE OXIMETER [facility] Indications: Chronic obstructive pulmonary disease, unspecified COPD type (HCC) , Moderate persistent asthma without complication (HCC) Use as directed to check oxygen saturation level 1 Each 07/17/2021 Active Start: 07-17-2021 PULSE OXIMETER [facility] Indications: Chronic obstructive pulmonary disease, unspecified COPD type (HCC) , Moderate persistent asthma without complication Use as directed to check oxygen saturation level 1 Each 07/17/2021 Active Start: 07-17-2021 PULSE OXIMETER [facility] Indications: Chronic obstructive pulmonary disease, unspecified [...] on above: Take 2 tablets by mo [facility] once daily. tiotropium 0.018 mg inhalation powder [...] 1 capsule as instructed once daily. Tiotropium Vernon (Spiriva With Handihaler) 1 PUFF inhaler (8 sources) Start: 3 take 1 puff(s) by inhalation once daily Tiotropium Vernon (Spiriva With Handihaler) 1 PUFF inhaler Active 1 NMA INHALATION DAILY April 18, 2013 1:00am wheezing Start: 04-18-2013 take 1 puff(s) by in halation once daily Tiotropium Vernon (Spiriva With Handihaler) 1 PUFF inhaler Active 1 NMA INHALATION DAILY April 18, 2013 1:00am Start: 04-18-2013 take 1 puff(s) by in halation once daily Tiotropium Vernon (Spiriva With Handihaler) 1 PUFF inhaler Active [...] 0.5 mg/ml oral solution (20 sources) Uncompetitive N-oxqipd-H-aspartate Receptor Antagonist, Sigma-1 Agonist, alpha-1 Adrenergic Agonist Start: 2018 End: 2022 take 10 mL by mouth every eight hours as needed for chronic obstructive pulmonary disease and chronic obstructive pulmonary disease Opvvozvslvdtc-FA-n uaiFENesin (MUCINEX FAST-MAX CONGEST-COUGH) 2.5-5-100 mg/5 mL [...] empty sto mach Take 1 capsule by [facility] once daily. 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 [facility] patient will possibly be discharged in 10 days. [facility] patient is doing okay and will update as she progresses. Plan to follow up in one month if no contact. [facility] 36 Patients called with update. She was discharged to [facility] from [facility] 36 PC to patient. Unabl e to LMOM- voicemail box full. PC to patient significant other, LMOM to call office back. [facility] 36 Can we try and call SO? mm [facility] Absolute lymphocyte countOrd ered By: Jessica Luo on 02-13-2025 Lymphocytes Auto (Unsp spec) [#/Vol] 1.75 10*3/uL 0.83-4.51 [facility] Anion gap in Serum or Plasma Ordered By: Jessica uLo on 02-13-2025 Anion gap [Moles/Vol] 5 mmol/L 5-15 [facility] Automated lymphocyte count a s percentage of total leukocytesOrdered By: Jessica Luo on 02-13-2025 Lymphocytes/100 WBC Auto (Unsp spec) 25.0 % - [facility] BUN/creatinine ratioOrdered By: Jessica Luo on 02-13-2025 Urea nitrogen/Creatinine [Mass ratio] 32.2 mg/mg High 02-12 [facility] Basic Metabolic Profile (BMP )on 02-13-2025 BUN/CRE 32.2 RATIO High 02-12 [facility] Comment on above: Order Comment: 209 Performed By: #### L 100.0100, L500.2500, L501.5200 ####[facility] [address] [place], [address] Calcium [Mass/Vol] 8.4 mg/dL Normal 7.6-11.0 [facility] Comment on above: Order Comment: 209 Performed By: #### L 100.0100, L500.2500, L501.5200 ####[facility] [address] [place], [address] Chloride [Moles/Vol] 99 mmol/L Normal 98-108 [facility] Comment on above: Order Comment: 209 Performed By: #### L 100.0100, L500.2500, L501.5200 ####[facility] [address] [place], [address] CO2 [Moles/Vol] 37.5 mmol/L High 21.0-32.0 [facility] Comment on above: Order Comment: 209 Performed By: #### L 100.0100, L500.2500, L501.5200 ####[facility] [address] [place], [address] Creatinine [Mass/Vol] 0.54 mg/dL Low 0.70-1.20 [facility] Comment on above: Order Comment: 209 Performed By: #### L 100.0100, L500.2500, L501.5200 ####[facility] [address] [place], [address] GAP 5 Normal 5-15 [facility] Comment on above: Order Comment: 209 Performed By: #### L 100.0100, L500.2500, L501.5200 ####[facility] [address] [place], [address] GFR/1.73 sq M.predicted among non-blacks MDRD (S/P/Bld) [Vol rate/Area] 99 mL/min/{1.73_m2} Normal >60 [facility] Comment on above: Order Comment: 209 Result Comment: mL/m in/1.73m2 CKD-EPI Creatinine Equation (2020) Performed By: #### L 100.0100, L500.2500, L501.5200 ####[facility] [address] [place], [address] Glucose [Mass/Vol] 80 mg/dL Normal 70-99 [facility] Comment on above: Order Comment: 209 Performed By: #### L 100.0100, L500.2500, L501.5200 ####[facility] [address] [place], [address] Potassium [Moles/Vol] 4.3 mmol/L Normal 3.3-5.1 [facility] Comment on above: Order Comment: 209 Performed By: #### L 100.0100, L500.2500, L501.5200 ####[facility] [address] [place], [address] Sodium [Moles/Vol] 141 mmol/L Normal 133-145 [facility] Comment on above: Order Comment: 209 Performed By: #### L 100.0100, L500.2500, L501.5200 ####[facility] [address] [place], [address] Urea nitrogen [Mass/Vol] 18 mg/dL Normal 4-19 [facility] Comment on above: Order Comment: 209 Performed By: #### L 100.0100, L500.2500, L501.5200 ####[facility] [address] [place], [address] Basophil percentageOrdered B y: Jessica Luo on 02-13-2025 Basophils/100 WBC (Bld) 0.1 % 0-1 [facility] CBC W/Diff, Automatedon 01-25 Absolute Lymph 1.75 X10 3/uL Normal 0.83-4.51 [facility] Comment on above: Order Comment: 209 Performed By: #### L 100.0100, L500.2500, L501.5200 ####[facility] [address] [place], [address] Absolute Neut 4.7 X10 3/uL Normal 2.0-7.7 [facility] Comment on above: Order Comment: 209 Performed By: #### L 100.0100, L500.2500, L501.5200 ####[facility] [address] [place], [address] Basophils/100 WBC (Bld) 0.1 % Normal 0-1 [facility] Comment on above: Order Comment: 209 Performed By: #### L 100.0100, L500.2500, L501.5200 ####[facility] [address] [place], [address] Eosinophils/100 WBC (Bld) 1.0 % Normal 0-5 [facility] Comment on above: Order Comment: 209 Performed By: #### L 100.0100, L500.2500, L501.5200 ####[facility] [address] [place], [address] Erythrocyte distribution width (RBC) [Ratio] 17.2 % High 11.6-14.6 [facility] Comment on above: Order Comment: 209 Performed By: #### L 100.0100, L500.2500, L501.5200 ####[facility] [address] [place], [address] Hematocrit (Bld) [Volume fraction] 28.3 % Low 37-47 [facility] Comment on above: Order Comment: 209 Performed By: #### L 100.0100, L500.2500, L501.5200 ####[facility] [address] [place], [address] Hemoglobin (Bld) [Mass/Vol] 8.5 g/dL Low 12.0-15.0 [facility] Comment on above: Order Comment: 209 Performed By: #### L 100.0100, L500.2500, L501.5200 ####[facility] [address] [place], [address] IG% 0.700 Normal 0.0-0.9 [facility] Comment on above: Order Comment: 209 Result Comment: IG% - Immature Granulocytes (promyelocytes, myelocytes andmetamyelocytes) > 1% indicates that a LEFT SHIFT is Present. Performed By: #### L 100.0100, L500.2500, L501.5200 ####[facility] [address] [place], [address] Lymphocytes/100 WBC (Bld) 25.0 % Normal 19-41 [facility] Comment on above: Order Comment: 209 Performed By: #### L 100.0100, L500.2500, L501.5200 ####[facility] [address] [place], [address] MCH (RBC) [Entitic mass] 24.6 pg Low 27.0-32.0 [facility] Comment on above: Order Comment: 209 Performed By: #### L 100.0100, L500.2500, L501.5200 ####[facility] [address] [place], [address] MCHC (RBC) [Mass/Vol] 30.0 g/dL Low 32-36 [facility] Comment on above: Order Comment: 209 Performed By: #### L 100.0100, L500.2500, L501.5200 ####[facility] [address] [place], [address] MCV (RBC) [Entitic vol] 81.8 fL Normal 81-99 [facility] Comment on above: Order Comment: 209 Performed By: #### L 100.0100, L500.2500, L501.5200 ####[facility] [address] [place], [address] Monocytes/100 WBC (Bld) 6.3 % Normal 0-10 [facility] Comment on above: Order Comment: 209 Performed By: #### L 100.0100, L500.2500, L501.5200 ####[facility] [address] [place], [address] Neutrophils/100 WBC (Bld) 66.9 % Normal 47-70 [facility] Comment on above: Order Comment: 209 Performed By: #### L 100.0100, L500.2500, L501.5200 ####[facility] [address] [place], [address] Nucleated RBC (Bld) [#/Vol] 0 10*3/uL Normal 0-5 [facility] Comment on above: Order Comment: 209 Performed By: #### L 100.0100, L500.2500, L501.5200 ####[facility] [address] [place], [address] Platelet mean volume (Bld) [Entitic vol] 11.3 fL Normal 6.2-12.0 [facility] Comment on above: Order Comment: 209 Performed By: #### L 100.0100, L500.2500, L501.5200 ####[facility] [address] [place], [address] Platelets (Bld) [#/Vol] 197 10*3/uL Normal 150-450 [facility] Comment on above: Order Comment: 209 Performed By: #### L 100.0100, L500.2500, L501.5200 ####[facility] [address] [place], [address] RBC (Bld) [#/Vol] 3.46 10*6/uL Low 4.2-5.4 [facility] Comment on above: Order Comment: 209 Performed By: #### L 100.0100, L500.2500, L501.5200 ####[facility] [address] [place], [address] RDW SD 51.0 fl High 35.1-43.9 [facility] Comment on above: Order Comment: 209 Performed By: #### L 100.0100, L500.2500, L501.5200 ####[facility] [address] [place], [address] WBC (Bld) [#/Vol] 7.0 10*3/uL Normal 4.4-11.0 [facility] Comment on above: Order Comment: 209 Performed By: #### L 100.0100, L500.2500, L501.5200 ####[facility] [address] [place], [address] Carbon dioxide, total [Moles /volume] in Central venous bloodOrdered By: Jessica Luo on 02-13-2025 CO2 [Moles/Vol] 37.5 mmol/L High 21.0-32.0 [facility] Chloride assayOrdered By: Ollie Luo on 02-13-2025 Chloride [Moles/Vol] 99 mmol/L 98-108 [facility] Eosinophil percentageOrdered By: Jessica Luo on 02-13-2025 Eosinophils/100 WBC (Bld) 1.0 % 0-5 [facility] Erythrocyte distribution wid th ratioOrdered By: Jessica Luo on 02-13-2025 Erythrocyte distribution width (RBC) [Ratio] 17.2 % High 11.6-14.6 [facility] Erythrocyte distribution wid th standard deviationOrdered By: Jessica Luo on 02-13-2025 Erythrocyte distribution width (RBC) [Ratio] 51.0 fl High 35.1-43.9 [facility] Glomerular filtration rate ( GFR) estimation/1.73 sq m using serum, plasma, or whole bOrdered By: Jessica Luo on 10-21-2025 GFR/1.73 sq M.predicted among non-blacks MDRD (S/P/Bld) [Vol rate/Area] 99 mL/min/{1.73_m2} >60 [facility] Hematocrit Auto (Bld) [Volum e fraction]Ordered By: Jessica Luo on 02-13-2025 Hematocrit (Bld) [Volume fraction] 28.3 % Low 37-47 [facility] Hemoglobin measurementOrdere d By: Jessica Luo on 02-13-2025 Hemoglobin (Bld) [Mass/Vol] 8.5 g/dL Low 12.0-15.0 [facility] Immature granulocytes/100 WB C Auto (Bld)Ordered By: Jessica Luo on 02-13-2025 Immature granulocytes/100 WBC (Bld) 0.700 % 0.0-0.9 [facility] MCV (mean corpuscular volume ) determinationOrdered By: Jessica Luo on 02-13-2025 MCV (RBC) [Entitic vol] 81.8 fL 81-99 [facility] Magnesiumon 02-13-2025 Magnesium [Mass/Vol] 2.1 mg/dL Normal 1.5-2.2 [facility] Comment on above: Order Comment: 209 Performed By: #### L 100.0100, L500.2500, L501.5200 ####[facility] [address] [place], [address] Magnesium measurement (mass/ volume)Ordered By: Jessica Luo on 02-13-2025 Magnesium (Unsp spec) [Mass/Vol] 2.1 mg/dL 1.5-2.2 [facility] Mean corpuscular hemoglobin (MCH) determinationOrdered By: Jessica Luo on 02-13-2025 MCH (RBC) [Entitic mass] 24.6 pg Low 27.0-32.0 [facility] Monocyte percentageOrdered B y: Jessica Luo on 02-13-2025 Monocytes/100 WBC (Bld) 6.3 % 0-10 [facility] Neutrophil percentageOrdered By: Jessica Luo on 02-13-2025 Neutrophils/100 WBC (Bld) 66.9 % 47-70 [facility] Platelet countOrdered By: Ollie Luo on 02-13-2025 Platelets (Bld) [#/Vol] 197 10*3/uL 150-450 [facility] Potassium measurement (mass/ volume)Ordered By: Jessica Luo on 02-13-2025 Potassium (Unsp spec) [Mass/Vol] 4.3 mmol/L 3.3-5.1 [facility] RBC Auto (Bld) [#/Vol]Ordere d By: Jessica Luo on 02-13-2025 RBC (Bld) [#/Vol] 3.46 10*6/uL Low 4.2-5.4 [facility] Serum creatinine measurement (mass/volume)Ordered By: Jessica Luo on 02-13-2025 Creatinine [Mass/Vol] 0.54 mg/dL Low 0.70-1.20 [facility] Serum glucose measurement (m ass/volume)Ordered By: Jessica Luo on 02-13-2025 Glucose [Mass/Vol] 80 mg/dL 70-99 [facility] Serum or plasma calcium kadi urement (mass/volume)Ordered By: Jessica Luo on 02-13-2025 Calcium [Mass/Vol] 8.4 mg/dL 7.6-11.0 [facility] Serum or plasma urea nitroge n measurement (mass/volume)Ordered By: Jessica Luo on 02-13-2025 Urea nitrogen [Mass/Vol] 18 mg/dL 4-19 [facility] Sodium levelOrdered By: Ang Luo on 02-13-2025 Sodium [Moles/Vol] 141 mmol/L 133-145 [facility] White blood cell (WBC) count Ordered By: Jessica Luo on 02-13-2025 WBC (Bld) [#/Vol] 7.0 10*3/uL 4.4-11.0 [facility] Anion gap in Serum or Plasma Ordered By: Jessica Luo on 02-08-2025 Anion gap [Moles/Vol] 7 mmol/L 5-15 [facility] BUN/creatinine ratioOrdered By: Jessica Luo on 02-08-2025 Urea nitrogen/Creatinine [Mass ratio] 21.7 mg/mg High 02-12 [facility] Basic Metabolic Profile (BMP )on 02-08-2025 BUN/CRE 21.7 RATIO High 02-12 [facility] Comment on above: Performed By: #### L 500.2500 ####[facility] [address] [place], [address] Calcium [Mass/Vol] 8.6 mg/dL Normal 7.6-11.0 [facility] Comment on above: Performed By: #### L 500.2500 ####[facility] [address] [place], [address] Chloride [Moles/Vol] 94 mmol/L Low 98-108 [facility] Comment on above: Performed By: #### L 500.2500 ####[facility] [address] [place], [address] CO2 [Moles/Vol] 41.8 mmol/L High 21.0-32.0 [facility] Comment on above: Performed By: #### L 500.2500 ####[facility] [address] [place], [address] Creatinine [Mass/Vol] 0.57 mg/dL Low 0.70-1.20 [facility] Comment on above: Performed By: #### L 500.2500 ####[facility] [address] [place], [address] GAP 7 Normal 5-15 [facility] Comment on above: Performed By: #### L 500.2500 ####[facility] [address] [place], [address] GFR/1.73 sq M.predicted among non-blacks MDRD (S/P/Bld) [Vol rate/Area] 98 mL/min/{1.73_m2} Normal >60 [facility] Comment on above: Result Comment: mL/m in/1.73m2 CKD-EPI Creatinine Equation (2020) Performed By: #### L 500.2500 ####[facility] [address] [place], [address] Glucose [Mass/Vol] 81 mg/dL Normal 70-99 [facility] Comment on above: Performed By: #### L 500.2500 ####[facility] [address] [place], [address] Potassium [Moles/Vol] 4.2 mmol/L Normal 3.3-5.1 [facility] Comment on above: Performed By: #### L 500.2500 ####[facility] [address] [place], [address] Sodium [Moles/Vol] 142 mmol/L Normal 133-145 [facility] Comment on above: Performed By: #### L 500.2500 ####[facility] [address] [place], [address] Urea nitrogen [Mass/Vol] 12 mg/dL Normal 4-19 [facility] Comment on above: Performed By: #### L 500.2500 ####[facility] [address] [place], [address] Carbon dioxide, total [Moles /volume] in Central venous bloodOrdered By: Jessica Luo on 02-08-2025 CO2 [Moles/Vol] 41.8 mmol/L High 21.0-32.0 [facility] Cardiology Visit Reporton Cardiology Visit Report Normal [facility] Chloride assayOrdered By: Ollie Luo on 02-08-2025 Chloride [Moles/Vol] 94 mmol/L Low 98-108 [facility] Glomerular filtration rate ( GFR) estimation/1.73 sq m using serum, plasma, or whole bOrdered By: Jessica Luo on 02-08-2025 GFR/1.73 sq M.predicted among non-blacks MDRD (S/P/Bld) [Vol rate/Area] 98 mL/min/{1.73_m2} >60 [facility] Potassium measurement (mass/ volume)Ordered By: Jessica Luo on 02-08-2025 Potassium (Unsp spec) [Mass/Vol] 4.2 mmol/L 3.3-5.1 [facility] Serum creatinine measurement (mass/volume)Ordered By: Jessica Luo on 02-08-2025 Creatinine [Mass/Vol] 0.57 mg/dL Low 0.70-1.20 [facility] Serum glucose measurement (m ass/volume)Ordered By: Jessica Luo on 02-08-2025 Glucose [Mass/Vol] 81 mg/dL 70-99 [facility] Serum or plasma calcium kadi urement (mass/volume)Ordered By: Jessica Luo on 02-08-2025 Calcium [Mass/Vol] 8.6 mg/dL 7.6-11.0 [facility] Serum or plasma urea nitroge n measurement (mass/volume)Ordered By: Jessica Luo on 02-08-2025 Urea nitrogen [Mass/Vol] 12 mg/dL 4-19 [facility] Sodium levelOrdered By: Ang Luo on 02-08-2025 Sodium [Moles/Vol] 142 mmol/L 133-145 [facility] Absolute lymphocyte countOrd ered By: Jessica Luo on 02-06-2025 Lymphocytes Auto (Unsp spec) [#/Vol] 1.49 10*3/uL 0.83-4.51 [facility] Anion gap in Serum or Plasma Ordered By: Jessica Luo on 02-06-2025 Anion gap [Moles/Vol] 7 mmol/L 5-15 [facility] Automated lymphocyte count a s percentage of total leukocytesOrdered By: Jessica Luo on 02-06-2025 Lymphocytes/100 WBC Auto (Unsp spec) 19.0 % 19-41 [facility] BUN/creatinine ratioOrdered By: Jessica Luo on 02-06-2025 Urea nitrogen/Creatinine [Mass ratio] 21.7 mg/mg High 10-20 [facility] Basic Metabolic Profile (BMP )on 02-06-2025 BUN/CRE 21.7 RATIO High 10-20 [facility] Comment on above: Order Comment: 209.1 Performed By: #### L 100.0100, L500.2500, L501.5200 ####[facility] [address] [place], [address] Calcium [Mass/Vol] 8.5 mg/dL Normal 7.6-11.0 [facility] Comment on above: Order Comment: 209.1 Performed By: #### L 100.0100, L500.2500, L501.5200 ####[facility] [address] [place], [address] Chloride [Moles/Vol] 93 mmol/L Low 98-108 [facility] Comment on above: Order Comment: 209.1 Performed By: #### L 100.0100, L500.2500, L501.5200 ####[facility] [address] [place], [address] CO2 [Moles/Vol] 43.4 mmol/L High 21.0-32.0 [facility] Comment on above: Order Comment: 209.1 Performed By: #### L 100.0100, L500.2500, L501.5200 ####[facility] [address] [place], [address] Creatinine [Mass/Vol] 0.55 mg/dL Low 0.70-1.20 [facility] Comment on above: Order Comment: 209.1 Performed By: #### L 100.0100, L500.2500, L501.5200 ####[facility] [address] [place], [address] GAP 7 Normal 5-15 [facility] Comment on above: Order Comment: 209.1 Performed By: #### L 100.0100, L500.2500, L501.5200 ####[facility] [address] [place], [address] GFR/1.73 sq M.predicted among non-blacks MDRD (S/P/Bld) [Vol rate/Area] 99 mL/min/{1.73_m2} Normal >60 [facility] Comment on above: Order Comment: 209.1 Result Comment: mL/m in/1.73m2 CKD-EPI Creatinine Equation (2020) Performed By: #### L 100.0100, L500.2500, L501.5200 ####[facility] [address] [place], [address] Glucose [Mass/Vol] 77 mg/dL Normal 70-99 [facility] Comment on above: Order Comment: . Performed By: #### L 100.0100, L500.2500, L501.5200 ####[facility] [address] [place], [address] Potassium [Moles/Vol] 3.2 mmol/L Low 3.3-5.1 [facility] Comment on above: Order Comment: . Performed By: #### L 100.0100, L500.2500, L501.5200 ####[facility] [address] [place], [address] Sodium [Moles/Vol] 143 mmol/L Normal 133-145 [facility] Comment on above: Order Comment: .1 Performed By: #### L 100.0100, L500.2500, L501.5200 ####[facility] [address] [place], [address] Urea nitrogen [Mass/Vol] 12 mg/dL Normal 4-19 [facility] Comment on above: Order Comment: 209.1 Performed By: #### L 100.0100, L500.2500, L501.5200 ####[facility] [address] [place], [address] Basophil percentageOrdered B y: Jessica Luo on 02-06-2025 Basophils/100 WBC (Bld) 0.1 % 0-1 [facility] CBC W/Diff, Automatedon 01-24 Absolute Lymph 1.49 X10 3/uL Normal 0.83-4.51 [facility] Comment on above: Order Comment: 209. Performed By: #### L 100.0100, L500.2500, L501.5200 ####[facility] [address] [place], [address] Absolute Neut 5.7 X10 3/uL Normal 2.0-7.7 [facility] Comment on above: Order Comment: . Performed By: #### L 100.0100, L500.2500, L501.5200 ####[facility] [address] [place], [address] Basophils/100 WBC (Bld) 0.1 % Normal 0-1 [facility] Comment on above: Order Comment: . Performed By: #### L 100.0100, L500.2500, L501.5200 ####[facility] [address] [place], [address] Eosinophils/100 WBC (Bld) 0.3 % Normal 0-5 [facility] Comment on above: Order Comment: .1 Performed By: #### L 100.0100, L500.2500, L501.5200 ####[facility] [address] [place], [address] Erythrocyte distribution width (RBC) [Ratio] 16.2 % High 11.6-14.6 [facility] Comment on above: Order Comment: 209.1 Performed By: #### L 100.0100, L500.2500, L501.5200 ####[facility] [address] [place], [address] Hematocrit (Bld) [Volume fraction] 31.7 % Low 37-47 [facility] Comment on above: Order Comment: 209.1 Performed By: #### L 100.0100, L500.2500, L501.5200 ####[facility] [address] [place], [address] Hemoglobin (Bld) [Mass/Vol] 9.5 g/dL Low 12.0-15.0 [facility] Comment on above: Order Comment: .1 Performed By: #### L 100.0100, L500.2500, L501.5200 ####[facility] [address] [place], [address] IG% 0.600 Normal 0.0-0.9 [facility] Comment on above: Order Comment: .1 Result Comment: IG% - Immature Granulocytes (promyelocytes, myelocytes andmetamyelocytes) > 1% indicates that a LEFT SHIFT is Present. Performed By: #### L 100.0100, L500.2500, L501.5200 ####[facility] [address] [place], [address] Lymphocytes/100 WBC (Bld) 19.0 % Normal 19-41 [facility] Comment on above: Order Comment: .1 Performed By: #### L 100.0100, L500.2500, L501.5200 ####[facility] [address] [place], [address] MCH (RBC) [Entitic mass] 24.5 pg Low 27.0-32.0 [facility] Comment on above: Order Comment: .1 Performed By: #### L 100.0100, L500.2500, L501.5200 ####[facility] [address] [place], [address] MCHC (RBC) [Mass/Vol] 30.0 g/dL Low 32-36 [facility] Comment on above: Order Comment: .1 Performed By: #### L 100.0100, L500.2500, L501.5200 ####[facility] [address] [place], [address] MCV (RBC) [Entitic vol] 81.9 fL Normal 81-99 [facility] Comment on above: Order Comment: .1 Performed By: #### L 100.0100, L500.2500, L501.5200 ####[facility] [address] [place], [address] Monocytes/100 WBC (Bld) 7.3 % Normal 0-10 [facility] Comment on above: Order Comment: .1 Performed By: #### L 100.0100, L500.2500, L501.5200 ####[facility] [address] [place], [address] Neutrophils/100 WBC (Bld) 72.7 % High 47-70 [facility] Comment on above: Order Comment: .1 Performed By: #### L 100.0100, L500.2500, L501.5200 ####[facility] [address] [place], [address] Nucleated RBC (Bld) [#/Vol] 0 10*3/uL Normal 0-5 [facility] Comment on above: Order Comment: .1 Performed By: #### L 100.0100, L500.2500, L501.5200 ####[facility] [address] [place], [address] Platelet mean volume (Bld) [Entitic vol] 12.3 fL High 6.2-12.0 [facility] Comment on above: Order Comment: .1 Performed By: #### L 100.0100, L500.2500, L501.5200 ####[facility] [address] [place], [address] Platelets (Bld) [#/Vol] 176 10*3/uL Normal 150-450 [facility] Comment on above: Order Comment: .1 Performed By: #### L 100.0100, L500.2500, L501.5200 ####[facility] [address] [place], [address] RBC (Bld) [#/Vol] 3.87 10*6/uL Low 4.2-5.4 [facility] Comment on above: Order Comment: . Performed By: #### L 100.0100, L500.2500, L501.5200 ####[facility] [address] [place], [address] RDW SD 47.8 fl High 35.1-43.9 [facility] Comment on above: Order Comment: . Performed By: #### L 100.0100, L500.2500, L501.5200 ####[facility] [address] [place], [address] WBC (Bld) [#/Vol] 7.9 10*3/uL Normal 4.4-11.0 [facility] Comment on above: Order Comment: . Performed By: #### L 100.0100, L500.2500, L501.5200 ####[facility] [address] [place], [address] Carbon dioxide, total [Moles /volume] in Central venous bloodOrdered By: Jessica Luo on 02-06-2025 CO2 [Moles/Vol] 43.4 mmol/L High 21.0-32.0 [facility] Chloride assayOrdered By: Ollie Luo on 02-06-2025 Chloride [Moles/Vol] 93 mmol/L Low 98-108 [facility] Eosinophil percentageOrdered By: Jessica Luo on 02-06-2025 Eosinophils/100 WBC (Bld) 0.3 % 0-5 [facility] Erythrocyte distribution wid th ratioOrdered By: Jessica Luo on 02-06-2025 Erythrocyte distribution width (RBC) [Ratio] 16.2 % High 11.6-14.6 [facility] [place] [facility] Erythrocyte distribution wid th standard deviationOrdered By: Jessica Luo on 02-06-2025 Erythrocyte distribution width (RBC) [Ratio] 47.8 fl High 35.1-43.9 [facility] Glomerular filtration rate ( GFR) estimation/1.73 sq m using serum, plasma, or whole bOrdered By: Jessica Luo on 02-06-2025 GFR/1.73 sq M.predicted among non-blacks MDRD (S/P/Bld) [Vol rate/Area] 99 mL/min/{1.73_m2} >60 [facility] Hematocrit Auto (Bld) [Volum e fraction]Ordered By: Jessicaanna Luo on 02-06-2025 Hematocrit (Bld) [Volume fraction] 31.7 % Low 37-47 [facility] Hemoglobin measurementOrdere d By: Jessica Luo on 02-06-2025 Hemoglobin (Bld) [Mass/Vol] 9.5 g/dL Low 12.0-15.0 [facility] Immature granulocytes/100 WB C Auto (Bld)Ordered By: Jessica Luo on 02-06-2025 Immature granulocytes/100 WBC (Bld) 0.600 % 0.0-0.9 [facility] MCV (mean corpuscular volume ) determinationOrdered By: Jessica Luo on 02-06-2025 MCV (RBC) [Entitic vol] 81.9 fL 81-99 [facility] Magnesiumon 02-06-2025 Magnesium [Mass/Vol] 2.2 mg/dL Normal 1.5-2.2 [facility] Comment on above: Order Comment: 209.1 Performed By: #### L 100.0100, L500.2500, L501.5200 ####[facility] [address] [place], [address] Magnesium measurement (mass/ volume)Ordered By: Jessica Luo on 02-06-2025 Magnesium (Unsp spec) [Mass/Vol] 2.2 mg/dL 1.5-2.2 [facility] Mean corpuscular hemoglobin (MCH) determinationOrdered By: Jessica Luo on 02-06-2025 MCH (RBC) [Entitic mass] 24.5 pg Low 27.0-32.0 [facility] Monocyte percentageOrdered B y: Jessica Luo on 02-06-2025 Monocytes/100 WBC (Bld) 7.3 % 0-10 [facility] Neutrophil percentageOrdered By: Jessica Luo on 02-06-2025 Neutrophils/100 WBC (Bld) 72.7 % High 47-70 [facility] Platelet countOrdered By: Ollie Luo on 02-06-2025 Platelets (Bld) [#/Vol] 176 10*3/uL 150-450 [facility] Potassium measurement (mass/ volume)Ordered By: Jessica Luo on 02-06-2025 Potassium (Unsp spec) [Mass/Vol] 3.2 mmol/L Low 3.3-5.1 [facility] RBC Auto (Bld) [#/Vol]Ordere d By: Jessica Luo on 02-06-2025 RBC (Bld) [#/Vol] 3.87 10*6/uL Low 4.2-5.4 [facility] Serum creatinine measurement (mass/volume)Ordered By: Jessica Luo on 02-06-2025 Creatinine [Mass/Vol] 0.55 mg/dL Low 0.70-1.20 [facility] Serum glucose measurement (m ass/volume)Ordered By: Jessica Luo on 02-06-2025 Glucose [Mass/Vol] 77 mg/dL 70-99 [facility] Serum or plasma calcium kadi urement (mass/volume)Ordered By: Jessica Luo on 02-06-2025 Calcium [Mass/Vol] 8.5 mg/dL 7.6-11.0 [facility] Serum or plasma urea nitroge n measurement (mass/volume)Ordered By: Jessica Luo on 02-06-2025 Urea nitrogen [Mass/Vol] 12 mg/dL 4-19 [facility] Sodium levelOrdered By: Ang Luo on 02-06-2025 Sodium [Moles/Vol] 143 mmol/L 133-145 [facility] White blood cell (WBC) count Ordered By: Jessica Luo on 02-06-2025 WBC (Bld) [#/Vol] 7.9 10*3/uL 4.4-11.0 [facility] 36on 02-05-2025 36 Chart reviewed, patient admitted to [facility] 01/25-01/31 with the following event summary: 69-year-old female with a history of severe aortic valve stenosis being worked up for TAVR in [place], COPD with chronic hypoxic respiratory failure on 3 L home O2, anxiety, GERD, restless leg syndrome, A-fib presented to [facility] ED 01/25/25 for worsening shortness of breath [...] follow-up, no answer and voicemail full Normal [facility] Basic Metabolic Profile (BMP )on 02-03-2025 BUN Normal - [facility] Comment on above: Result Comment: Canc elled via OM: Order cancelled - Patient discharged Performed By: #### L 100.0100, L500.2500 ####[facility] [address] [place], [address] BUN/CRE Normal - [facility] Comment on above: Result Comment: Canc elled via OM: Order cancelled - Patient discharged Performed By: #### L 100.0100, L500.2500 ####[facility] [address] [place], [address] Calcium Normal 7.6-11.0 [facility] Comment on above: Result Comment: Canc elled via OM: Order cancelled - Patient discharged Performed By: #### L 100.0100, L500.2500 ####[facility] [address] [place], [address] CL Normal 98-108 [facility] Comment on above: Result Comment: Canc elled via OM: Order cancelled - Patient discharged Performed By: #### L 100.0100, L500.2500 ####[facility] [address] [place], [address] CO2 Normal 21.0-32.0 [facility] Comment on above: Result Comment: Canc elled via OM: Order cancelled - Patient discharged Performed By: #### L 100.0100, L500.2500 ####[facility] [address] [place], [address] CREAT,SERUM Normal 0.70-1.20 [facility] Comment on above: Result Comment: Canc elled via OM: Order cancelled - Patient discharged Performed By: #### L 100.0100, L500.2500 ####[facility] [address] [place], [address] eGFR Normal >60 [facility] Comment on above: Result Comment: Canc elled via OM: Order cancelled - Patient discharged Performed By: #### L 100.0100, L500.2500 ####[facility] [address] [place], [address] GAP Normal 5-15 [facility] Comment on above: Result Comment: Canc elled via OM: Order cancelled - Patient discharged Performed By: #### L 100.0100, L500.2500 ####[facility] [address] [place], [address] GLU Normal 70-99 [facility] Comment on above: Result Comment: Canc elled via OM: Order cancelled - Patient discharged Performed By: #### L 100.0100, L500.2500 ####[facility] [address] [place], [address] Potassium Normal 3.3-5.1 [facility] Comment on above: Result Comment: Canc elled via OM: Order cancelled - Patient discharged Performed By: #### L 100.0100, L500.2500 ####[facility] [address] [place], [address] Basic Metabolic Profile (BMP) Normal 133-145 [facility] Comment on above: Result Comment: Canc elled via OM: Order cancelled - Patient discharged Performed By: #### L 100.0100, L500.2500 ####[facility] [address] [place], [address] CBC W/Diff, Automatedon 10-1 Absolute Neut Normal 2.0-7.7 [facility] Comment on above: Result Comment: Canc elled via OM: Order cancelled - Patient discharged Performed By: #### L 100.0100, L500.2500 ####[facility] [address] [place], [address] HCT Normal 37-47 [facility] Comment on above: Result Comment: Canc elled via OM: Order cancelled - Patient discharged Performed By: #### L 100.0100, L500.2500 ####[facility] [address] [place], [address] HGB Normal 12.0-15.0 [facility] Comment on above: Result Comment: Canc elled via OM: Order cancelled - Patient discharged Performed By: #### L 100.0100, L500.2500 ####[facility] [address] [place], [address] MCH Normal 27.0-32.0 [facility] Comment on above: Result Comment: Canc elled via OM: Order cancelled - Patient discharged Performed By: #### L 100.0100, L500.2500 ####[facility] [address] [place], [address] MCHC Normal 32-36 [facility] Comment on above: Result Comment: Canc elled via OM: Order cancelled - Patient discharged Performed By: #### L 100.0100, L500.2500 ####[facility] [address] [place], [address] MCV Normal 81-99 [facility] Comment on above: Result Comment: Canc elled via OM: Order cancelled - Patient discharged Performed By: #### L 100.0100, L500.2500 ####[facility] [address] [place], [address] NEUT% Normal 47-70 [facility] Comment on above: Result Comment: Canc elled via OM: Order cancelled - Patient discharged Performed By: #### L 100.0100, L500.2500 ####[facility] [address] [place], [address] PLT Normal 150-450 [facility] Comment on above: Result Comment: Canc elled via OM: Order cancelled - Patient discharged Performed By: #### L 100.0100, L500.2500 ####[facility] [address] [place], [address] RBC Normal 4.2-5.4 [facility] Comment on above: Result Comment: Canc elled via OM: Order cancelled - Patient discharged Performed By: #### L 100.0100, L500.2500 ####[facility] [address] [place], [address] RDW CV Normal 11.6-14.6 [facility] Comment on above: Result Comment: Canc elled via OM: Order cancelled - Patient discharged Performed By: #### L 100.0100, L500.2500 ####[facility] [address] [place], [address] RDW SD Normal 35.1-43.9 [facility] Comment on above: Result Comment: Canc elled via OM: Order cancelled - Patient discharged Performed By: #### L 100.0100, L500.2500 ####[facility] [address] [place], [address] WBC Normal 4.4-11.0 [facility] Comment on above: Result Comment: Canc elled via OM: Order cancelled - Patient discharged Performed By: #### L 100.0100, L500.2500 ####[facility] [address] [place], [address] Basic Metabolic Profile (BMP )on 02-02-2025 BUN Normal 4-19 [facility] Comment on above: Result Comment: Canc elled via OM: Order cancelled - Patient discharged Performed By: #### L 100.0100, L500.2500 ####[facility] [address] [place], [address] BUN/CRE Normal 10-20 [facility] Comment on above: Result Comment: Canc elled via OM: Order cancelled - Patient discharged Performed By: #### L 100.0100, L500.2500 ####[facility] [address] [place], [address] Calcium Normal 7.6-11.0 [facility] Comment on above: Result Comment: Canc elled via OM: Order cancelled - Patient discharged Performed By: #### L 100.0100, L500.2500 ####[facility] [address] [place], [address] CL Normal 98-108 [facility] Comment on above: Result Comment: Canc elled via OM: Order cancelled - Patient discharged Performed By: #### L 100.0100, L500.2500 ####[facility] [address] [place], [address] CO2 Normal 21.0-32.0 [facility] Comment on above: Result Comment: Canc elled via OM: Order cancelled - Patient discharged Performed By: #### L 100.0100, L500.2500 ####[facility] [address] [place], [address] CREAT,SERUM Normal 0.70-1.20 [facility] Comment on above: Result Comment: Canc elled via OM: Order cancelled - Patient discharged Performed By: #### L 100.0100, L500.2500 ####[facility] [address] [place], [address] eGFR Normal >60 [facility] Comment on above: Result Comment: Canc elled via OM: Order cancelled - Patient discharged Performed By: #### L 100.0100, L500.2500 ####[facility] [address] [place], [address] GAP Normal 5-15 [facility] Comment on above: Result Comment: Canc elled via OM: Order cancelled - Patient discharged Performed By: #### L 100.0100, L500.2500 ####[facility] [address] [place], [address] GLU Normal 70-99 [facility] Comment on above: Result Comment: Canc elled via OM: Order cancelled - Patient discharged Performed By: #### L 100.0100, L500.2500 ####[facility] [address] [place], [address] Potassium Normal 3.3-5.1 [facility] Comment on above: Result Comment: Canc elled via OM: Order cancelled - Patient discharged Performed By: #### L 100.0100, L500.2500 ####[facility] [address] [place], [address] Basic Metabolic Profile (BMP) Normal 133-145 [facility] Comment on above: Result Comment: Canc elled via OM: Order cancelled - Patient discharged Performed By: #### L 100.0100, L500.2500 ####[facility] [address] [place], [address] CBC W/Diff, Automatedon 10-1 0-2024 Absolute Neut Normal 2.0-7.7 [facility] Comment on above: Result Comment: Canc elled via OM: Order cancelled - Patient discharged Performed By: #### L 100.0100, L500.2500 ####[facility] [address] [place], [address] HCT Normal 37-47 [facility] Comment on above: Result Comment: Canc elled via OM: Order cancelled - Patient discharged Performed By: #### L 100.0100, L500.2500 ####[facility] [address] [place], [address] HGB Normal 12.0-15.0 [facility] Comment on above: Result Comment: Canc elled via OM: Order cancelled - Patient discharged Performed By: #### L 100.0100, L500.2500 ####[facility] [address] [place], [address] MCH Normal 27.0-32.0 [facility] Comment on above: Result Comment: Canc elled via OM: Order cancelled - Patient discharged Performed By: #### L 100.0100, L500.2500 ####[facility] [address] [place], [address] MCHC Normal 32-36 [facility] Comment on above: Result Comment: Canc elled via OM: Order cancelled - Patient discharged Performed By: #### L 100.0100, L500.2500 ####[facility] [address] [place], [address] MCV Normal 81-99 [facility] Comment on above: Result Comment: Canc elled via OM: Order cancelled - Patient discharged Performed By: #### L 100.0100, L500.2500 ####[facility] [address] [place], [address] NEUT% Normal 47-70 [facility] Comment on above: Result Comment: Canc elled via OM: Order cancelled - Patient discharged Performed By: #### L 100.0100, L500.2500 ####[facility] [address] [place], [address] PLT Normal 150-450 [facility] Comment on above: Result Comment: Canc elled via OM: Order cancelled - Patient discharged Performed By: #### L 100.0100, L500.2500 ####[facility] [address] [place], [address] RBC Normal 4.2-5.4 [facility] Comment on above: Result Comment: Canc elled via OM: Order cancelled - Patient discharged Performed By: #### L 100.0100, L500.2500 ####[facility] [address] [place], [address] RDW CV Normal 11.6-14.6 [facility] Comment on above: Result Comment: Canc elled via OM: Order cancelled - Patient discharged Performed By: #### L 100.0100, L500.2500 ####[facility] [address] [place], [address] RDW SD Normal 35.1-43.9 [facility] Comment on above: Result Comment: Canc elled via OM: Order cancelled - Patient discharged Performed By: #### L 100.0100, L500.2500 ####[facility] [address] [place], [address] WBC Normal 4.4-11.0 [facility] Comment on above: Result Comment: Canc elled via OM: Order cancelled - Patient discharged Performed By: #### L 100.0100, L500.2500 ####[facility] [address] [place], [address] Absolute lymphocyte countOrd ered By: Jessica Luo on 02-01-2025 Lymphocytes Auto (Unsp spec) [#/Vol] 1.63 10*3/uL 0.83-4.51 [facility] Anion gap in Serum or Plasma Ordered By: Jessica Luo on 02-01-2025 Anion gap [Moles/Vol] 8 mmol/L 5-15 [facility] Automated lymphocyte count a s percentage of total leukocytesOrdered By: Jessica Luo on 02-01-2025 Lymphocytes/100 WBC Auto (Unsp spec) 18.8 % Low 19-41 [facility] BUN/creatinine ratioOrdered By: Jessicaanan Luo on 02-01-2025 Urea nitrogen/Creatinine [Mass ratio] 25.3 mg/mg High 10- [facility] Basic Metabolic Profile (BMP )on 02-01-2025 BUN/CRE 25.3 RATIO High 10- [facility] Comment on above: Order Comment: .1 Performed By: #### L 100.0100, L501.5200, L503.0106, L506.1001, L500.2500, L501.9985, L501.9520 ####[facility] [address] [place], [address] Calcium [Mass/Vol] 8.6 mg/dL Normal 7.6-11.0 [facility] Comment on above: Order Comment: .1 Performed By: #### L 100.0100, L501.5200, L503.0106, L506.1001, L500.2500, L501.9985, L501.9520 ####[facility] [address] [place], [address] Chloride [Moles/Vol] 91 mmol/L Low 98-108 [facility] Comment on above: Order Comment: . Performed By: #### L 100.0100, L501.5200, L503.0106, L506.1001, L500.2500, L501.9985, L501.9520 ####[facility] [address] [place], [address] CO2 [Moles/Vol] 41.6 mmol/L High 21.0-32.0 [facility] Comment on above: Order Comment: . Performed By: #### L 100.0100, L501.5200, L503.0106, L506.1001, L500.2500, L501.9985, L501.9520 ####[facility] [address] [place], [place], [phone] Creatinine [Mass/Vol] 0.46 mg/dL Low 0.70-1.20 [facility] Comment on above: Order Comment: . Performed By: #### L 100.0100, L501.5200, L503.0106, L506.1001, L500.2500, L501.9985, L501.9520 ####[facility] [address] [place], [place], [phone] [phone] Normal 5-15 [facility] Comment on above: Order Comment: . Performed By: #### L 100.0100, L501.5200, L503.0106, L506.1001, L500.2500, L501.9985, L501.9520 ####[facility] [address] [place], [place], [phone] GFR/1.73 sq M.predicted among non-blacks MDRD (S/P/Bld) [Vol rate/Area] 103 mL/min/{1.73_m2} Normal >60 [facility] Comment on above: Order Comment: Result Comment: mL/m in/1.73m2 CKD-EPI Creatinine Equation (2020) Performed By: #### L 100.0100, L501.5200, L503.0106, L506.1001, L500.2500, L501.9985, L501.9520 ####[facility] [address] [place], [address] Glucose [Mass/Vol] 79 mg/dL Normal 70-99 [facility] Comment on above: Order Comment: Performed By: #### L 100.0100, L501.5200, L503.0106, L506.1001, L500.2500, L501.9985, L501.9520 ####[facility] [address] [place], [address] Potassium [Moles/Vol] 3.5 mmol/L Normal 3.3-5.1 [facility] Comment on above: Order Comment: Performed By: #### L 100.0100, L501.5200, L503.0106, L506.1001, L500.2500, L501.9985, L501.9520 ####[facility] [address] [place], [address] Sodium [Moles/Vol] 140 mmol/L Normal 133-145 [facility] Comment on above: Order Comment: . Performed By: #### L 100.0100, L501.5200, L503.0106, L506.1001, L500.2500, L501.9985, L501.9520 ####[facility] [address] [place], [address] Urea nitrogen [Mass/Vol] 12 mg/dL Normal 4-19 [facility] Comment on above: Order Comment: . Performed By: #### L 100.0100, L501.5200, L503.0106, L506.1001, L500.2500, L501.9985, L501.9520 ####[facility] [address] [place], [address] BUN Normal 4-19 [facility] Comment on above: Result Comment: Canc elled via OM: Order cancelled - Patient discharged Performed By: #### L 500.2500, L100.0100 ####[facility] [address] [place], [address] BUN/CRE Normal 10-20 [facility] Comment on above: Result Comment: Canc elled via OM: Order cancelled - Patient discharged Performed By: #### L 500.2500, L100.0100 ####[facility] [address] [place], [address] Calcium Normal 7.6-11.0 [facility] Comment on above: Result Comment: Canc elled via OM: Order cancelled - Patient discharged Performed By: #### L 500.2500, L100.0100 ####[facility] [address] [place], [address] CL Normal 98-108 [facility] Comment on above: Result Comment: Canc elled via OM: Order cancelled - Patient discharged Performed By: #### L 500.2500, L100.0100 ####[facility] [address] [place], [address] CO2 Normal 21.0-32.0 [facility] Comment on above: Result Comment: Canc elled via OM: Order cancelled - Patient discharged Performed By: #### L 500.2500, L100.0100 ####[facility] [address] [place], [address] CREAT,SERUM Normal 0.70-1.20 [facility] Comment on above: Result Comment: Canc elled via OM: Order cancelled - Patient discharged Performed By: #### L 500.2500, L100.0100 ####[facility] [address] [place], [address] eGFR Normal >60 [facility] Comment on above: Result Comment: Canc elled via OM: Order cancelled - Patient discharged Performed By: #### L 500.2500, L100.0100 ####[facility] [address] [place], [address] GAP Normal 5-15 [facility] Comment on above: Result Comment: Canc elled via OM: Order cancelled - Patient discharged Performed By: #### L 500.2500, L100.0100 ####[facility] [address] [place], [address] GLU Normal 70-99 [facility] Comment on above: Result Comment: Canc elled via OM: Order cancelled - Patient discharged Performed By: #### L 500.2500, L100.0100 ####[facility] [address] [place], [address] Potassium Normal 3.3-5.1 [facility] Comment on above: Result Comment: Canc elled via OM: Order cancelled - Patient discharged Performed By: #### L 500.2500, L100.0100 ####[facility] [address] [place], [address] Basic Metabolic Profile (BMP) Normal 133-145 [facility] Comment on above: Result Comment: Canc elled via OM: Order cancelled - Patient discharged Performed By: #### L 500.2500, L100.0100 ####[facility] [address] [place], [address] Basophil percentageOrdered B y: Jessica Luo on 02-01-2025 Basophils/100 WBC (Bld) 0.1 % 0-1 [facility] CBC W/Diff, Automatedon 10-0 Absolute Lymph 1.63 X10 3/uL Normal 0.83-4.51 [facility] Comment on above: Order Comment: 209. Performed By: #### L 100.0100, L501.5200, L503.0106, L506.1001, L500.2500, L501.9985, L501.9520 ####[facility] [address] [place], [address] Absolute Neut 6.1 X10 3/uL Normal 2.0-7.7 [facility] Comment on above: Order Comment: . Performed By: #### L 100.0100, L501.5200, L503.0106, L506.1001, L500.2500, L501.9985, L501.9520 ####[facility] [address] [place], [address] Basophils/100 WBC (Bld) 0.1 % Normal 0-1 [facility] Comment on above: Order Comment: Performed By: #### L 100.0100, L501.5200, L503.0106, L506.1001, L500.2500, L501.9985, L501.9520 ####[facility] [address] [place], [address] Eosinophils/100 WBC (Bld) 0.3 % Normal 0-5 [facility] Comment on above: Order Comment: Performed By: #### L 100.0100, L501.5200, L503.0106, L506.1001, L500.2500, L501.9985, L501.9520 ####[facility] [address] [place], [address] Erythrocyte distribution width (RBC) [Ratio] 15.3 % High 11.6-14.6 [facility] Comment on above: Order Comment: . Performed By: #### L 100.0100, L501.5200, L503.0106, L506.1001, L500.2500, L501.9985, L501.9520 ####[facility] [address] [place], [address] Hematocrit (Bld) [Volume fraction] 32.5 % Low 37-47 [facility] Comment on above: Order Comment: . Performed By: #### L 100.0100, L501.5200, L503.0106, L506.1001, L500.2500, L501.9985, L501.9520 ####[facility] [address] [place], [address] Hemoglobin (Bld) [Mass/Vol] 9.6 g/dL Low 12.0-15.0 [facility] Comment on above: Order Comment: . Performed By: #### L 100.0100, L501.5200, L503.0106, L506.1001, L500.2500, L501.9985, L501.9520 ####[facility] [address] [place], [address] IG% 0.800 Normal 0.0-0.9 [facility] Comment on above: Order Comment: . Result Comment: IG% - Immature Granulocytes (promyelocytes, myelocytes andmetamyelocytes) > 1% indicates that a LEFT SHIFT is Present. Performed By: #### L 100.0100, L501.5200, L503.0106, L506.1001, L500.2500, L501.9985, L501.9520 ####[facility] [address] [place], [address] Lymphocytes/100 WBC (Bld) 18.8 % Low 19-41 [facility] Comment on above: Order Comment: . Performed By: #### L 100.0100, L501.5200, L503.0106, L506.1001, L500.2500, L501.9985, L501.9520 ####[facility] [address] [place], [address] MCH (RBC) [Entitic mass] 24.2 pg Low 27.0-32.0 [facility] Comment on above: Order Comment: . Performed By: #### L 100.0100, L501.5200, L503.0106, L506.1001, L500.2500, L501.9985, L501.9520 ####[facility] [address] [place], [address] MCHC (RBC) [Mass/Vol] 29.5 g/dL Low 32-36 [facility] Comment on above: Order Comment: . Performed By: #### L 100.0100, L501.5200, L503.0106, L506.1001, L500.2500, L501.9985, L501.9520 ####[facility] [address] [place], [address] MCV (RBC) [Entitic vol] 81.9 fL Normal 81-99 [facility] Comment on above: Order Comment: . Performed By: #### L 100.0100, L501.5200, L503.0106, L506.1001, L500.2500, L501.9985, L501.9520 ####[facility] [address] [place], [address] Monocytes/100 WBC (Bld) 9.7 % Normal 0-10 [facility] Comment on above: Order Comment: . Performed By: #### L 100.0100, L501.5200, L503.0106, L506.1001, L500.2500, L501.9985, L501.9520 ####[facility] [address] [place], [address] Neutrophils/100 WBC (Bld) 70.3 % High 47-70 [facility] Comment on above: Order Comment: . Performed By: #### L 100.0100, L501.5200, L503.0106, L506.1001, L500.2500, L501.9985, L501.9520 ####[facility] [address] [place], [address] Nucleated RBC (Bld) [#/Vol] 0 10*3/uL Normal 0-5 [facility] Comment on above: Order Comment: . Performed By: #### L 100.0100, L501.5200, L503.0106, L506.1001, L500.2500, L501.9985, L501.9520 ####[facility] [address] [place], [address] Platelet mean volume (Bld) [Entitic vol] 12.0 fL Normal 6.2-12.0 [facility] Comment on above: Order Comment: . Performed By: #### L 100.0100, L501.5200, L503.0106, L506.1001, L500.2500, L501.9985, L501.9520 ####[facility] [address] [place], [address] Platelets (Bld) [#/Vol] 224 10*3/uL Normal 150-450 [facility] Comment on above: Order Comment: . Performed By: #### L 100.0100, L501.5200, L503.0106, L506.1001, L500.2500, L501.9985, L501.9520 ####[facility] [address] [place], [address] RBC (Bld) [#/Vol] 3.97 10*6/uL Low 4.2-5.4 [facility] Comment on above: Order Comment: . Performed By: #### L 100.0100, L501.5200, L503.0106, L506.1001, L500.2500, L501.9985, L501.9520 ####[facility] [address] [place], [address] RDW SD 45.7 fl High 35.1-43.9 [facility] Comment on above: Order Comment: 209.1 Performed By: #### L 100.0100, L501.5200, L503.0106, L506.1001, L500.2500, L501.9985, L501.9520 ####[facility] [address] [place], [address] WBC (Bld) [#/Vol] 8.7 10*3/uL Normal 4.4-11.0 [facility] Comment on above: Order Comment: .1 Performed By: #### L 100.0100, L501.5200, L503.0106, L506.1001, L500.2500, L501.9985, L501.9520 ####[facility] [address] [place], [address] Absolute Neut Normal 2.0-7.7 [facility] Comment on above: Result Comment: Canc elled via OM: Order cancelled - Patient discharged Performed By: #### L 500.2500, L100.0100 ####[facility] [address] [place], [address] HCT Normal 37-47 [facility] Comment on above: Result Comment: Canc elled via OM: Order cancelled - Patient discharged Performed By: #### L 500.2500, L100.0100 ####[facility] [address] [place], [address] HGB Normal 12.0-15.0 [facility] Comment on above: Result Comment: Canc elled via OM: Order cancelled - Patient discharged Performed By: #### L 500.2500, L100.0100 ####[facility] [address] [place], [address] MCH Normal 27.0-32.0 [facility] Comment on above: Result Comment: Canc elled via OM: Order cancelled - Patient discharged Performed By: #### L 500.2500, L100.0100 ####[facility] [address] [place], [address] MCHC Normal 32-36 [facility] Comment on above: Result Comment: Canc elled via OM: Order cancelled - Patient discharged Performed By: #### L 500.2500, L100.0100 ####[facility] [address] [place], [address] MCV Normal 81-99 [facility] Comment on above: Result Comment: Canc elled via OM: Order cancelled - Patient discharged Performed By: #### L 500.2500, L100.0100 ####[facility] [address] [place], [address] NEUT% Normal 47-70 [facility] Comment on above: Result Comment: Canc elled via OM: Order cancelled - Patient discharged Performed By: #### L 500.2500, L100.0100 ####[facility] [address] [place], [address] PLT Normal 150-450 [facility] Comment on above: Result Comment: Canc elled via OM: Order cancelled - Patient discharged Performed By: #### L 500.2500, L100.0100 ####[facility] [address] [place], [address] RBC Normal 4.2-5.4 [facility] Comment on above: Result Comment: Canc elled via OM: Order cancelled - Patient discharged Performed By: #### L 500.2500, L100.0100 ####[facility] [address] [place], [address] RDW CV Normal 11.6-14.6 [facility] Comment on above: Result Comment: Canc elled via OM: Order cancelled - Patient discharged Performed By: #### L 500.2500, L100.0100 ####[facility] [address] [place], [address] RDW SD Normal 35.1-43.9 [facility] Comment on above: Result Comment: Canc elled via OM: Order cancelled - Patient discharged Performed By: #### L 500.2500, L100.0100 ####[facility] [address] [place], [address] WBC Normal 4.4-11.0 [facility] Comment on above: Result Comment: Canc elled via OM: Order cancelled - Patient discharged Performed By: #### L 500.2500, L100.0100 ####[facility] [address] [place], [address] Carbon dioxide, total [Moles /volume] in Central venous bloodOrdered By: Jessica Luo on 02-01-2025 CO2 [Moles/Vol] 41.6 mmol/L High 21.0-32.0 [facility] Chloride assayOrdered By: Ollie Luo on 02-01-2025 Chloride [Moles/Vol] 91 mmol/L Low 98-108 [facility] Eosinophil percentageOrdered By: Jessica Luo on 02-01-2025 Eosinophils/100 WBC (Bld) 0.3 % 0-5 [facility] Erythrocyte distribution wid th ratioOrdered By: Jessica Luo on 02-01-2025 Erythrocyte distribution width (RBC) [Ratio] 15.3 % High 11.6-14.6 [facility] Erythrocyte distribution wid th standard deviationOrdered By: Jessica Luo on 02-01-2025 Erythrocyte distribution width (RBC) [Ratio] 45.7 fl High 35.1-43.9 [facility] Glomerular filtration rate ( GFR) estimation/1.73 sq m using serum, plasma, or whole bOrdered By: Jessica Luo on 02-01-2025 GFR/1.73 sq M.predicted among non-blacks MDRD (S/P/Bld) [Vol rate/Area] 103 mL/min/{1.73_m2} >60 [facility] Hematocrit Auto (Bld) [Volum e fraction]Ordered By: Jessica Luo on 02-01-2025 Hematocrit (Bld) [Volume fraction] 32.5 % Low 37-47 [facility] Hemoglobin A1con 02-01-2025 HbA1c (Bld) [Mass fraction] 5.4 % Normal <=5.6 [facility] Comment on above: Order Comment: 209.1 Result Comment: Norm al < 5.7 % Prediabetic 5.7 - 6.4 % Diabetic >or= 6.5 % Please note range changes. Performed By: #### L 100.0100, L501.5200, L503.0106, L506.1001, L500.2500, L501.9985, L501.9520 ####[facility] [address] [place], [address] Hemoglobin A1c percentageOrd ered By: Jessica Luo on 02-01-2025 HbA1c (Bld) [Mass fraction] 5.4 % <5.7 [facility] Hemoglobin measurementOrdere d By: Jessica Luo on 02-01-2025 Hemoglobin (Bld) [Mass/Vol] 9.6 g/dL Low 12.0-15.0 [facility] Immature granulocytes/100 WB C Auto (Bld)Ordered By: Jessica Luo on 02-01-2025 Immature granulocytes/100 WBC (Bld) 0.800 % 0.0-0.9 [facility] MCV (mean corpuscular volume ) determinationOrdered By: Jessica Luo on 02-01-2025 MCV (RBC) [Entitic vol] 81.9 fL 81-99 [facility] Magnesiumon 02-01-2025 Magnesium [Mass/Vol] 2.1 mg/dL Normal 1.5-2.2 [facility] Comment on above: Order Comment: 209.1 Performed By: #### L 100.0100, L501.5200, L503.0106, L506.1001, L500.2500, L501.9985, L501.9520 ####[facility] [address] [place], [address] Magnesium measurement (mass/ volume)Ordered By: Jessica Luo on 02-01-2025 Magnesium (Unsp spec) [Mass/Vol] 2.1 mg/dL 1.5-2.2 [facility] Mean corpuscular hemoglobin (MCH) determinationOrdered By: Jessica Luo on 02-01-2025 MCH (RBC) [Entitic mass] 24.2 pg Low 27.0-32.0 [facility] Monocyte percentageOrdered B y: Jessica Luo on 02-01-2025 Monocytes/100 WBC (Bld) 9.7 % 0-10 [facility] Neutrophil percentageOrdered By: Jessica Luo on 02-01-2025 Neutrophils/100 WBC (Bld) 70.3 % High 47-70 [facility] Platelet countOrdered By: Ollie Luo on 02-01-2025 Platelets (Bld) [#/Vol] 224 10*3/uL 150-450 [facility] Potassium measurement (mass/ volume)Ordered By: Jessica Luo on 02-01-2025 Potassium (Unsp spec) [Mass/Vol] 3.5 mmol/L 3.3-5.1 [facility] RBC Auto (Bld) [#/Vol]Ordere d By: Jessica Luo on 02-01-2025 RBC (Bld) [#/Vol] 3.97 10*6/uL Low 4.2-5.4 [facility] Serum creatinine measurement (mass/volume)Ordered By: Jessica Luo on 02-01-2025 Creatinine [Mass/Vol] 0.46 mg/dL Low 0.70-1.20 [facility] Serum glucose measurement (m ass/volume)Ordered By: Jessica Luo on 02-01-2025 Glucose [Mass/Vol] 79 mg/dL 70-99 [facility] Serum or plasma calcium kadi urement (mass/volume)Ordered By: Jessica Luo on 02-01-2025 Calcium [Mass/Vol] 8.6 mg/dL 7.6-11.0 [facility] Serum or plasma urea nitroge n measurement (mass/volume)Ordered By: Jessica Luo on 02-01-2025 Urea nitrogen [Mass/Vol] 12 mg/dL 4-19 [facility] Sodium levelOrdered By: Ang Luo on 02-01-2025 Sodium [Moles/Vol] 140 mmol/L 133-145 [facility] TSH DL <= 0.005 mIU/L QnOrde red By: Jessica Luo on 02-01-2025 TSH Qn 1.330 uIU/mL 0.300-4.200 [facility] Thyroid Stim Hormone (TSH)on 02-01-2025 TSH 1.330 uIU/mL Normal 0.300-4.200 [facility] Comment on above: Order Comment: 209.1 Performed By: #### L 100.0100, L501.5200, L503.0106, L506.1001, L500.2500, L501.9985, L501.9520 ####[facility] [address] [place], [place], [id number] Vitamin B12on 02-01-2025 Cobalamin (Vitamin B12) [Mass/Vol] 286 pg/mL Normal 180-914 [facility] Comment on above: Order Comment: 209.1 Performed By: #### L 100.0100, L501.5200, L503.0106, L506.1001, L500.2500, L501.9985, L501.9520 ####[facility] [address] [facility] [address] [place], [place], [address] Vitamin B12 ser/plasOrdered By: Jessica Luo on 02-01-2025 Cobalamin (Vitamin B12) [Mass/Vol] 286 pg/mL 180-914 [facility] Vitamin D,25 Hydroxyon 02-01 Vitamin D 25-OH 32.3 ng/mL Normal 30-100 [facility] Comment on above: Order Comment: 209.1 Result Comment: Marixa min D StatusDeficiency: <20 ng/mL (50nmol/L)Insufficiency: 20-30 ng/mL (50-75 nmol/L)Sufficiency: 30-100 ng/mL (75-250 nmol/L)Toxicity: >100 ng/mL (>250 nmol/L) Performed By: #### L 100.0100, L501.5200, L503.0106, L506.1001, L500.2500, L501.9985, L501.9520 ####[facility] [address] [place], [address] White blood cell (WBC) count Ordered By: Jessica Luo on 02-01-2025 WBC (Bld) [#/Vol] 8.7 10*3/uL 4.4-11.0 [facility] 36on 01-31-2025 36 Tried to contact to follow-up on dental plan, unable to leave message due to voicemail full Normal [facility] Absolute lymphocyte countOrd ered By: Debby Gu on 01-31-2025 Lymphocytes Auto (Unsp spec) [#/Vol] 1.44 10*3/uL 0.83-4.51 [facility] Anion gap in Serum or Plasma Ordered By: Debby Gu on 01-31-2025 Anion gap [Moles/Vol] 6 mmol/L 5-15 [facility] Automated lymphocyte count a s percentage of total leukocytesOrdered By: Debby Gu on 01-31-2025 Lymphocytes/100 WBC Auto (Unsp spec) 16.1 % Low 19-41 [facility] BUN/creatinine ratioOrdered By: Debby Gu on 01-31-2025 Urea nitrogen/Creatinine [Mass ratio] 29.6 mg/mg High 10- [facility] Basic Metabolic Profile (BMP )on 01-31-2025 BUN/CRE 29.6 RATIO High 02-12 [facility] Comment on above: Performed By: #### L 500.2500, L100.0100 ####[facility] [address] [place], [address] Calcium [Mass/Vol] 8.8 mg/dL Normal 7.6-11.0 [facility] Comment on above: Performed By: #### L 500.2500, L100.0100 ####[facility] [address] [place], [address] Chloride [Moles/Vol] 92 mmol/L Low 98-108 [facility] Comment on above: Performed By: #### L 500.2500, L100.0100 ####[facility] [address] [place], [address] CO2 [Moles/Vol] 44.1 mmol/L High 21.0-32.0 [facility] Comment on above: Performed By: #### L 500.2500, L100.0100 ####[facility] [address] [place], [address] Creatinine [Mass/Vol] 0.48 mg/dL Low 0.70-1.20 [facility] Comment on above: Performed By: #### L 500.2500, L100.0100 ####[facility] [address] [place], [address] ECRCL 62.17 ml/min Normal 50-250 [facility] Comment on above: Performed By: #### L 500.2500, L100.0100 ####[facility] [address] [place], [address] GAP 6 Normal 5-15 [facility] Comment on above: Performed By: #### L 500.2500, L100.0100 ####[facility] [address] [place], [address] GFR/1.73 sq M.predicted among non-blacks MDRD (S/P/Bld) [Vol rate/Area] 103 mL/min/{1.73_m2} Normal >60 [facility] Comment on above: Result Comment: mL/m in/1.73m2 CKD-EPI Creatinine Equation (2020) Performed By: #### L 500.2500, L100.0100 ####[facility] [address] [place], [address] Glucose [Mass/Vol] 98 mg/dL Normal 70-99 [facility] Comment on above: Performed By: #### L 500.2500, L100.0100 ####[facility] [address], [address] Potassium [Moles/Vol] 3.3 mmol/L Normal 3.3-5.1 [facility] Comment on above: Performed By: #### L 500.2500, L100.0100 ####[facility] [address] [place], [address] Sodium [Moles/Vol] 141 mmol/L Normal 133-145 [facility] Comment on above: Performed By: #### L 500.2500, L100.0100 ####[facility] [address] [place], [address] Urea nitrogen [Mass/Vol] 14 mg/dL Normal 4-19 [facility] Comment on above: Performed By: #### L 500.2500, L100.0100 ####[facility] [address] [place], [address] Basophil percentageOrdered B y: Debbyrayne Gu on 01-31-2025 Basophils/100 WBC (Bld) 0.1 % 0-1 [facility] CBC W/Diff, Automatedon 10-0 Absolute Lymph 1.44 X10 3/uL Normal 0.83-4.51 [facility] Comment on above: Performed By: #### L 500.2500, L100.0100 ####[facility] [address] [place], [address] Absolute Neut 6.4 X10 3/uL Normal 2.0-7.7 [facility] Comment on above: Performed By: #### L 500.2500, L100.0100 ####[facility] [address] [place], [address] Basophils/100 WBC (Bld) 0.1 % Normal 0-1 [facility] Comment on above: Performed By: #### L 500.2500, L100.0100 ####[facility] [address] [place], [address] Eosinophils/100 WBC (Bld) 0.2 % Normal 0-5 [facility] Comment on above: Performed By: #### L 500.2500, L100.0100 ####[facility] [address] [place], [address] Erythrocyte distribution width (RBC) [Ratio] 15.1 % High 11.6-14.6 [facility] Comment on above: Performed By: #### L 500.2500, L100.0100 ####[facility] [address] [place], [address] Hematocrit (Bld) [Volume fraction] 31.4 % Low 37-47 [facility] Comment on above: Performed By: #### L 500.2500, L100.0100 ####[facility] [address] [place], [address] Hemoglobin (Bld) [Mass/Vol] 9.5 g/dL Low 12.0-15.0 [facility] Comment on above: Performed By: #### L 500.2500, L100.0100 ####[facility] [address] [place], [address] IG% 0.700 Normal 0.0-0.9 [facility] Comment on above: Result Comment: IG% - Immature Granulocytes (promyelocytes, myelocytes andmetamyelocytes) > 1% indicates that a LEFT SHIFT is Present. Performed By: #### L 500.2500, L100.0100 ####[facility] [address] [place], [address] Lymphocytes/100 WBC (Bld) 16.1 % Low 19-41 [facility] Comment on above: Performed By: #### L 500.2500, L100.0100 ####[facility] [address] [place], [address] MCH (RBC) [Entitic mass] 24.5 pg Low 27.0-32.0 [facility] Comment on above: Performed By: #### L 500.2500, L100.0100 ####[facility] [address] [place], [address] MCHC (RBC) [Mass/Vol] 30.3 g/dL Low 32-36 [facility] Comment on above: Performed By: #### L 500.2500, L100.0100 ####[facility] [address] [place], [address] MCV (RBC) [Entitic vol] 81.1 fL Normal 81-99 [facility] Comment on above: Performed By: #### L 500.2500, L100.0100 ####[facility] [address] [place], [address] Monocytes/100 WBC (Bld) 11.7 % High 0-10 [facility] Comment on above: Performed By: #### L 500.2500, L100.0100 ####[facility] [address] [place], [address] Neutrophils/100 WBC (Bld) 71.2 % High 47-70 [facility] Comment on above: Performed By: #### L 500.2500, L100.0100 ####[facility] [address] [place], [address] Nucleated RBC (Bld) [#/Vol] 0 10*3/uL Normal 0-5 [facility] Comment on above: Performed By: #### L 500.2500, L100.0100 ####[facility] [address] [place], [address] Platelet mean volume (Bld) [Entitic vol] 11.3 fL Normal 6.2-12.0 [facility] Comment on above: Performed By: #### L 500.2500, L100.0100 ####[facility] [address] [place], [address] Platelets (Bld) [#/Vol] 204 10*3/uL Normal 150-450 [facility] Comment on above: Performed By: #### L 500.2500, L100.0100 ####[facility] [address] [place], [address] RBC (Bld) [#/Vol] 3.87 10*6/uL Low 4.2-5.4 [facility] Comment on above: Performed By: #### L 500.2500, L100.0100 ####[facility] [address] [place], [address] RDW SD 44.4 fl High 35.1-43.9 [facility] Comment on above: Performed By: #### L 500.2500, L100.0100 ####[facility] [address] [place], [address] WBC (Bld) [#/Vol] 9.0 10*3/uL Normal 4.4-11.0 [facility] Comment on above: Performed By: #### L 500.2500, L100.0100 ####[facility] [address] [place], [address] Carbon dioxide, total [Moles /volume] in Central venous bloodOrdered By: Debby Gu on 01-31-2025 CO2 [Moles/Vol] 44.1 mmol/L High 21.0-32.0 [facility] Chloride assayOrdered By: Sadiq Gu on 01-31-2025 Chloride [Moles/Vol] 92 mmol/L Low 98-108 [facility] Eosinophil percentageOrdered By: Debby Gu on 10-08-2025 Eosinophils/100 WBC (Bld) 0.2 % 0-5 [facility] Erythrocyte distribution wid th ratioOrdered By: Debby Gu on 01-31-2025 Erythrocyte distribution width (RBC) [Ratio] 15.1 % High 11.6-14.6 [facility] Erythrocyte distribution wid th standard deviationOrdered By: Debby Gu on 01-31-2025 Erythrocyte distribution width (RBC) [Ratio] 44.4 fl High 35.1-43.9 [facility] Glomerular filtration rate ( GFR) estimation/1.73 sq m using serum, plasma, or whole bOrdered By: Debby Gu on 01-31-2025 GFR/1.73 sq M.predicted among non-blacks MDRD (S/P/Bld) [Vol rate/Area] 103 mL/min/{1.73_m2} >60 [facility] Hematocrit Auto (Bld) [Volum e fraction]Ordered By: Debby Gu on 01-31-2025 Hematocrit (Bld) [Volume fraction] 31.4 % Low 37-47 [facility] Hemoglobin measurementOrdere d By: Debby Gu on 01-31-2025 Hemoglobin (Bld) [Mass/Vol] 9.5 g/dL Low 12.0-15.0 [facility] Immature granulocytes/100 WB C Auto (Bld)Ordered By: Debby Gu on 01-31-2025 Immature granulocytes/100 WBC (Bld) 0.700 % 0.0-0.9 [facility] MCV (mean corpuscular volume ) determinationOrdered By: Debby Gu on 01-31-2025 MCV (RBC) [Entitic vol] 81.1 fL 81-99 [facility] Mean corpuscular hemoglobin (MCH) determinationOrdered By: Debby Gu on 01-31-2025 MCH (RBC) [Entitic mass] 24.5 pg Low 27.0-32.0 [facility] Monocyte percentageOrdered B y: Debby Gu on 01-31-2025 Monocytes/100 WBC (Bld) 11.7 % High 0-10 [facility] Neutrophil percentageOrdered By: Debby Gu on 01-31-2025 Neutrophils/100 WBC (Bld) 71.2 % High 47-70 [facility] Platelet countOrdered By: Sadiq Gu on 01-31-2025 Platelets (Bld) [#/Vol] 204 10*3/uL 150-450 [facility] Potassium measurement (mass/ volume)Ordered By: Debby Gu on 01-31-2025 Potassium (Unsp spec) [Mass/Vol] 3.3 mmol/L 3.3-5.1 [facility] RBC Auto (Bld) [#/Vol]Ordere d By: Debby Gu on 01-31-2025 RBC (Bld) [#/Vol] 3.87 10*6/uL Low 4.2-5.4 [facility] Serum creatinine measurement (mass/volume)Ordered By: Debby Gu on 01-31-2025 Creatinine [Mass/Vol] 0.48 mg/dL Low 0.70-1.20 [facility] Serum glucose measurement (m ass/volume)Ordered By: Debby Gu on 01-31-2025 Glucose [Mass/Vol] 98 mg/dL 70-99 [facility] Serum or plasma calcium kadi urement (mass/volume)Ordered By: Debby Gu on 01-31-2025 Calcium [Mass/Vol] 8.8 mg/dL 7.6-11.0 [facility] Serum or plasma urea nitroge n measurement (mass/volume)Ordered By: Debby Gu on 01-31-2025 Urea nitrogen [Mass/Vol] 14 mg/dL 4-19 [facility] Sodium levelOrdered By: Art Gu on 01-31-2025 Sodium [Moles/Vol] 141 mmol/L 133-145 [facility] White blood cell (WBC) count Ordered By: Debby Gu on 01-31-2025 WBC (Bld) [#/Vol] 9.0 10*3/uL 4.4-11.0 [facility] Basic Metabolic Profile (BMP )on 01-30-2025 BUN/CRE 30.6 RATIO High 10-20 [facility] Comment on above: Performed By: #### L 500.2500, L100.0100 ####[facility] [address] [place], [address] Calcium [Mass/Vol] 8.6 mg/dL Normal 7.6-11.0 [facility] Comment on above: Performed By: #### L 500.2500, L100.0100 ####[facility] [address] [place], [address] Chloride [Moles/Vol] 89 mmol/L Low 98-108 [facility] Comment on above: Performed By: #### L 500.2500, L100.0100 ####[facility] [address] [place], [address] CO2 [Moles/Vol] 43.5 mmol/L High 21.0-32.0 [facility] Comment on above: Performed By: #### L 500.2500, L100.0100 ####[facility] [address] [place], [address] Creatinine [Mass/Vol] 0.59 mg/dL Low 0.70-1.20 [facility] Comment on above: Performed By: #### L 500.2500, L100.0100 ####[facility] [address] [place], [address] ECRCL 63.85 ml/min Normal 50-250 [facility] Comment on above: Performed By: #### L 500.2500, L100.0100 ####[facility] [address] [place], [address] GAP 9 Normal 5-15 [facility] Comment on above: Performed By: #### L 500.2500, L100.0100 ####[facility] [address] [place], [address] GFR/1.73 sq M.predicted among non-blacks MDRD (S/P/Bld) [Vol rate/Area] 97 mL/min/{1.73_m2} Normal >60 [facility] Comment on above: Result Comment: mL/m in/1.73m2 CKD-EPI Creatinine Equation (2020) Performed By: #### L 500.2500, L100.0100 ####[facility] [address] [place], [address] Glucose [Mass/Vol] 179 mg/dL High 70-99 [facility] Comment on above: Performed By: #### L 500.2500, L100.0100 ####[facility] [address] [place], [address] Potassium [Moles/Vol] 3.2 mmol/L Low 3.3-5.1 [facility] Comment on above: Performed By: #### L 500.2500, L100.0100 ####[facility] [address] [place], [address] Sodium [Moles/Vol] 141 mmol/L Normal 133-145 [facility] Comment on above: Performed By: #### L 500.2500, L100.0100 ####[facility] [address] [place], [address] Urea nitrogen [Mass/Vol] 18 mg/dL Normal 4-19 [facility] Comment on above: Performed By: #### L 500.2500, L100.0100 ####[facility] [address] [place], [address] CBC W/Diff, Automatedon 10-0 7-2025 Absolute Lymph 0.45 X10 3/uL Low 0.83-4.51 [facility] Comment on above: Performed By: #### L 500.2500, L100.0100 ####[facility] [address] [place], [address] Absolute Neut 5.3 X10 3/uL Normal 2.0-7.7 [facility] Comment on above: Performed By: #### L 500.2500, L100.0100 ####[facility] [address] [place], [address] Basophils/100 WBC (Bld) 0.2 % Normal 0-1 [facility] Comment on above: Performed By: #### L 500.2500, L100.0100 ####[facility] [address] [place], [address] Eosinophils/100 WBC (Bld) 0.0 % Normal 0-5 [facility] Comment on above: Performed By: #### L 500.2500, L100.0100 ####[facility] [address] [place], [address] Erythrocyte distribution width (RBC) [Ratio] 14.8 % High 11.6-14.6 [facility] Comment on above: Performed By: #### L 500.2500, L100.0100 ####[facility] [address] [place], [address] Hematocrit (Bld) [Volume fraction] 29.2 % Low 37-47 [facility] Comment on above: Performed By: #### L 500.2500, L100.0100 ####[facility] [address] [place], [address] Hemoglobin (Bld) [Mass/Vol] 8.9 g/dL Low 12.0-15.0 [facility] Comment on above: Performed By: #### L 500.2500, L100.0100 ####[facility] [address] [place], [address] IG% 0.800 Normal 0.0-0.9 [facility] Comment on above: Result Comment: IG% - Immature Granulocytes (promyelocytes, myelocytes andmetamyelocytes) > 1% indicates that a LEFT SHIFT is Present. Performed By: #### L 500.2500, L100.0100 ####[facility] [address] [place], [address] Lymphocytes/100 WBC (Bld) 7.3 % Low 19-41 [facility] Comment on above: Performed By: #### L 500.2500, L100.0100 ####[facility] [address] [place], [address] MCH (RBC) [Entitic mass] 24.5 pg Low 27.0-32.0 [facility] Comment on above: Performed By: #### L 500.2500, L100.0100 ####[facility] [address] [place], [address] MCHC (RBC) [Mass/Vol] 30.5 g/dL Low 32-36 [facility] Comment on above: Performed By: #### L 500.2500, L100.0100 ####[facility] [address] [place], [address] MCV (RBC) [Entitic vol] 80.2 fL Low 81-99 [facility] Comment on above: Performed By: #### L 500.2500, L100.0100 ####[facility] [address] [place], [address] Monocytes/100 WBC (Bld) 4.7 % Normal 0-10 [facility] Comment on above: Performed By: #### L 500.2500, L100.0100 ####[facility] [address] [place], [address] Neutrophils/100 WBC (Bld) 87.0 % High 47-70 [facility] Comment on above: Performed By: #### L 500.2500, L100.0100 ####[facility] [address] [place], [address] Nucleated RBC (Bld) [#/Vol] 0 10*3/uL Normal 0-5 [facility] Comment on above: Performed By: #### L 500.2500, L100.0100 ####[facility] [address] [place], [address] Platelet mean volume (Bld) [Entitic vol] 12.0 fL Normal 6.2-12.0 [facility] Comment on above: Performed By: #### L 500.2500, L100.0100 ####[facility] [address] [place], [address] Platelets (Bld) [#/Vol] 195 10*3/uL Normal 150-450 [facility] Comment on above: Performed By: #### L 500.2500, L100.0100 ####[facility] [address] [place], [address] RBC (Bld) [#/Vol] 3.64 10*6/uL Low 4.2-5.4 [facility] Comment on above: Performed By: #### L 500.2500, L100.0100 ####[facility] [address] [place], [address] RDW SD 43.3 fl Normal 35.1-43.9 [facility] Comment on above: Performed By: #### L 500.2500, L100.0100 ####[facility] [address] [place], [address] WBC (Bld) [#/Vol] 6.1 10*3/uL Normal 4.4-11.0 [facility] Comment on above: Performed By: #### L 500.2500, L100.0100 ####[facility] [address] [place], [address] Basic Metabolic Profile (BMP )on 01-29-2025 BUN/CRE 27.6 RATIO High 10-20 [facility] Comment on above: Performed By: #### L 500.2500, L100.0100 ####[facility] [address] [place], [address] Calcium [Mass/Vol] 8.5 mg/dL Normal 7.6-11.0 [facility] Comment on above: Performed By: #### L 500.2500, L100.0100 ####[facility] [address] [place], [address] Chloride [Moles/Vol] 86 mmol/L Low 98-108 [facility] Comment on above: Performed By: #### L 500.2500, L100.0100 ####[facility] [address] [place], [address] CO2 [Moles/Vol] 43.4 mmol/L High 21.0-32.0 [facility] Comment on above: Performed By: #### L 500.2500, L100.0100 ####[facility] [address] [place], [address] Creatinine [Mass/Vol] 0.56 mg/dL Low 0.70-1.20 [facility] Comment on above: Performed By: #### L 500.2500, L100.0100 ####[facility] [address] [place], [address] ECRCL 63.85 ml/min Normal 50-250 [facility] Comment on above: Performed By: #### L 500.2500, L100.0100 ####[facility] [address] [place], [address] GAP 10 Normal 5-15 [facility] Comment on above: Performed By: #### L 500.2500, L100.0100 ####[facility] [address] [place], [address] GFR/1.73 sq M.predicted among non-blacks MDRD (S/P/Bld) [Vol rate/Area] 99 mL/min/{1.73_m2} Normal >60 [facility] Comment on above: Result Comment: mL/m in/1.73m2 CKD-EPI Creatinine Equation (2020) Performed By: #### L 500.2500, L100.0100 ####[facility] [address] [place], [address] Glucose [Mass/Vol] 85 mg/dL Normal 70-99 [facility] Comment on above: Performed By: #### L 500.2500, L100.0100 ####[facility] [address] [place], [address] Potassium [Moles/Vol] 3.1 mmol/L Low 3.3-5.1 [facility] Comment on above: Performed By: #### L 500.2500, L100.0100 ####[facility] [address] [place], [address] Sodium [Moles/Vol] 139 mmol/L Normal 133-145 [facility] Comment on above: Performed By: #### L 500.2500, L100.0100 ####[facility] [address] [place], [address] Urea nitrogen [Mass/Vol] 15 mg/dL Normal 4-19 [facility] Comment on above: Performed By: #### L 500.2500, L100.0100 ####[facility] [address] [place], [address] CBC W/Diff, Automatedon 10-0 6-2025 Absolute Lymph 0.35 X10 3/uL Low 0.83-4.51 [facility] Comment on above: Performed By: #### L 500.2500, L100.0100 ####[facility] [address] [place], [address] Absolute Neut 6.4 X10 3/uL Normal 2.0-7.7 [facility] Comment on above: Performed By: #### L 500.2500, L100.0100 ####[facility] [address] [place], [address] Basophils/100 WBC (Bld) 0.1 % Normal 0-1 [facility] Comment on above: Performed By: #### L 500.2500, L100.0100 ####[facility] [address] [place], [address] Eosinophils/100 WBC (Bld) 0.0 % Normal 0-5 [facility] Comment on above: Performed By: #### L 500.2500, L100.0100 ####[facility] [address] [place], [address] Erythrocyte distribution width (RBC) [Ratio] 14.6 % Normal 11.6-14.6 [facility] Comment on above: Performed By: #### L 500.2500, L100.0100 ####[facility] [address] [place], [address] Hematocrit (Bld) [Volume fraction] 28.3 % Low 37-47 [facility] Comment on above: Performed By: #### L 500.2500, L100.0100 ####[facility] [address] [place], [address] Hemoglobin (Bld) [Mass/Vol] 9.0 g/dL Low 12.0-15.0 [facility] Comment on above: Performed By: #### L 500.2500, L100.0100 ####[facility] [address] [place], [address] IG% 0.600 Normal 0.0-0.9 [facility] Comment on above: Result Comment: IG% - Immature Granulocytes (promyelocytes, myelocytes andmetamyelocytes) > 1% indicates that a LEFT SHIFT is Present. Performed By: #### L 500.2500, L100.0100 ####[facility] [address] [place], [address] Lymphocytes/100 WBC (Bld) 5.0 % Low 19-41 [facility] Comment on above: Performed By: #### L 500.2500, L100.0100 ####[facility] [address] [place], [address] MCH (RBC) [Entitic mass] 25.0 pg Low 27.0-32.0 [facility] Comment on above: Performed By: #### L 500.2500, L100.0100 ####[facility] [address] [place], [address] MCHC (RBC) [Mass/Vol] 31.8 g/dL Low 32-36 [facility] Comment on above: Performed By: #### L 500.2500, L100.0100 ####[facility] [address] [place], [address] MCV (RBC) [Entitic vol] 78.6 fL Low 81-99 [facility] Comment on above: Performed By: #### L 500.2500, L100.0100 ####[facility] [address] [place], [address] Monocytes/100 WBC (Bld) 3.1 % Normal 0-10 [facility] Comment on above: Performed By: #### L 500.2500, L100.0100 ####[facility] [address] [place], [address] Neutrophils/100 WBC (Bld) 91.2 % High 47-70 [facility] Comment on above: Performed By: #### L 500.2500, L100.0100 ####[facility] [address] [place], [address] Nucleated RBC (Bld) [#/Vol] 0 10*3/uL Normal 0-5 [facility] Comment on above: Performed By: #### L 500.2500, L100.0100 ####[facility] [address] [place], [address] Platelet mean volume (Bld) [Entitic vol] 11.2 fL Normal 6.2-12.0 [facility] Comment on above: Performed By: #### L 500.2500, L100.0100 ####[facility] [address] [place], [address] Platelets (Bld) [#/Vol] 184 10*3/uL Normal 150-450 [facility] Comment on above: Performed By: #### L 500.2500, L100.0100 ####[facility] [address] [place], [address] RBC (Bld) [#/Vol] 3.60 10*6/uL Low 4.2-5.4 [facility] Comment on above: Performed By: #### L 500.2500, L100.0100 ####[facility] [address] [place], [address] RDW SD 42.1 fl Normal 35.1-43.9 [facility] Comment on above: Performed By: #### L 500.2500, L100.0100 ####[facility] [address] [place], [address] WBC (Bld) [#/Vol] 7.0 10*3/uL Normal 4.4-11.0 [facility] Comment on above: Performed By: #### L 500.2500, L100.0100 ####[facility] [address] [place], [address] CNPNon 01-29-2025 [facility] Telephone ([facility]) DENIA GONZALEZ ([id number]) 1955 F Date Time Provider Department 01/29/25 GREGOR FERNANDEZ [facility] During your visit today, we recorded the following information about you: Kajal Reyes 01/29/2025 10:31 AM Signed Left voicemail for patient to call us back to reschedule appt from 01/23/25 Rhoda Patient [facility] Screen CutterSonia 01/29/2025 12:24 PM Signed Received call from patient family, he let me know patient is in the hospital at this time so unable to reschedule but he will call us back when patient has discharge plan so they can reschedule Allergies As of Date: 01/29/2025 (No Known Allergies) Date Reviewed: 01/22/2025 Reviewed by: Gregor Fernandez APRN.SHIPPING CHECKER - Fully Assessed Prescriptions as of 01/29/2025 [...] directed. Dx: COPD J44.9 - Nebulizer Accessories [facility] Mask and supplies as needed - PULSE OXIMETER [facility] Use as directed to check oxygen saturation level - ammonium lactate (AMLACTIN) 12 % lotion Apply 1 application to affected area as needed for Dry Skin. - losartan (COZAAR) 50 mg tablet Take 0.5 tablets by mouth once daily. - OXYGEN, HOME THERAPY, 2.5 L/min by Nasal Cannula route continuous. Use as directred - Disposable Gloves (DISPOSABLE LATEX-FREE GLOVES) [facility] 1 Box once [...] [R89.6] ESOPHAGE (more content not included)... Normal [facility] Electrocardiogram reportOrde red By: Amy Keenan on 01-29-2025 EKG study [facility] Work Phone: Modified Barium Swallow Stud yon 01-29-2025 Modified Barium Swallow Study Normal [facility] Basic Metabolic Profile (BMP )on 01-28-2025 BUN/CRE 27.8 RATIO High 10-20 [facility] Comment on above: Performed By: #### L 100.0100, L500.2500 ####[facility] [address] [place], [address] Calcium [Mass/Vol] 8.3 mg/dL Normal 7.6-11.0 [facility] Comment on above: Performed By: #### L 100.0100, L500.2500 ####[facility] [address] [place], [address] Chloride [Moles/Vol] 88 mmol/L Low 98-108 [facility] Comment on above: Performed By: #### L 100.0100, L500.2500 ####[facility] [address] [place], [address] CO2 [Moles/Vol] 41.6 mmol/L High 21.0-32.0 [facility] Comment on above: Performed By: #### L 100.0100, L500.2500 ####[facility] [address] [place], [address] Creatinine [Mass/Vol] 0.59 mg/dL Low 0.70-1.20 [facility] Comment on above: Performed By: #### L 100.0100, L500.2500 ####[facility] [address] [place], [address] ECRCL 63.85 ml/min Normal 50-250 [facility] Comment on above: Performed By: #### L 100.0100, L500.2500 ####[facility] [address] [place], [address] GAP 12 Normal 5-15 [facility] Comment on above: Performed By: #### L 100.0100, L500.2500 ####[facility] [address] [place], [address] GFR/1.73 sq M.predicted among non-blacks MDRD (S/P/Bld) [Vol rate/Area] 98 mL/min/{1.73_m2} Normal >60 [facility] Comment on above: Result Comment: mL/m in/1.73m2 CKD-EPI Creatinine Equation (2020) Performed By: #### L 100.0100, L500.2500 ####[facility] [address] [place], [address] Glucose [Mass/Vol] 77 mg/dL Normal 70-99 [facility] Comment on above: Performed By: #### L 100.0100, L500.2500 ####[facility] [address] [place], [address] Potassium [Moles/Vol] 3.1 mmol/L Low 3.3-5.1 [facility] Comment on above: Performed By: #### L 100.0100, L500.2500 ####[facility] [address] [place], [address] Sodium [Moles/Vol] 142 mmol/L Normal 133-145 [facility] Comment on above: Performed By: #### L 100.0100, L500.2500 ####[facility] [address] [place], [address] Urea nitrogen [Mass/Vol] 16 mg/dL Normal 4-19 [facility] Comment on above: Performed By: #### L 100.0100, L500.2500 ####[facility] [address] [place], [address] CBC W/Diff, Automatedon 10-0 5-2025 Absolute Lymph 0.41 X10 3/uL Low 0.83-4.51 [facility] Comment on above: Performed By: #### L 100.0100, L500.2500 ####[facility] [address] [place], [address] Absolute Neut 7.5 X10 3/uL Normal 2.0-7.7 [facility] Comment on above: Performed By: #### L 100.0100, L500.2500 ####[facility] [address] [place], [address] Basophils/100 WBC (Bld) 0.1 % Normal 0-1 [facility] Comment on above: Performed By: #### L 100.0100, L500.2500 ####[facility] [address] [place], [address] Eosinophils/100 WBC (Bld) 0.0 % Normal 0-5 [facility] Comment on above: Performed By: #### L 100.0100, L500.2500 ####[facility] [address] [place], [address] Erythrocyte distribution width (RBC) [Ratio] 14.6 % Normal 11.6-14.6 [facility] Comment on above: Performed By: #### L 100.0100, L500.2500 ####[facility] [address] [place], [address] Hematocrit (Bld) [Volume fraction] 29.6 % Low 37-47 [facility] Comment on above: Performed By: #### L 100.0100, L500.2500 ####[facility] [address] [place], [address] Hemoglobin (Bld) [Mass/Vol] 9.2 g/dL Low 12.0-15.0 [facility] Comment on above: Performed By: #### L 100.0100, L500.2500 ####[facility] [address] [place], [address] IG% 0.500 Normal 0.0-0.9 [facility] Comment on above: Result Comment: IG% - Immature Granulocytes (promyelocytes, myelocytes andmetamyelocytes) > 1% indicates that a LEFT SHIFT is Present. Performed By: #### L 100.0100, L500.2500 ####[facility] [address] [place], [address] Lymphocytes/100 WBC (Bld) 4.8 % Low 19-41 [facility] Comment on above: Performed By: #### L 100.0100, L500.2500 ####[facility] [address] [place], [address] MCH (RBC) [Entitic mass] 24.7 pg Low 27.0-32.0 [facility] Comment on above: Performed By: #### L 100.0100, L500.2500 ####[facility] [address] [place], [address] MCHC (RBC) [Mass/Vol] 31.1 g/dL Low 32-36 [facility] Comment on above: Performed By: #### L 100.0100, L500.2500 ####[facility] [address] [place], [address] MCV (RBC) [Entitic vol] 79.4 fL Low 81-99 [facility] Comment on above: Performed By: #### L 100.0100, L500.2500 ####[facility] [address], [address] Monocytes/100 WBC (Bld) 6.0 % Normal 0-10 [facility] Comment on above: Performed By: #### L 100.0100, L500.2500 ####[facility] [address] [place], [address] Neutrophils/100 WBC (Bld) 88.6 % High 47-70 [facility] Comment on above: Performed By: #### L 100.0100, L500.2500 ####[facility] [address] [place], [address] Nucleated RBC (Bld) [#/Vol] 0 10*3/uL Normal 0-5 [facility] Comment on above: Performed By: #### L 100.0100, L500.2500 ####[facility] [address] [place], [address] Platelet mean volume (Bld) [Entitic vol] 11.0 fL Normal 6.2-12.0 [facility] Comment on above: Performed By: #### L 100.0100, L500.2500 ####[facility] [address] [place], [address] Platelets (Bld) [#/Vol] 208 10*3/uL Normal 150-450 [facility] Comment on above: Performed By: #### L 100.0100, L500.2500 ####[facility] [address] [place], [address] RBC (Bld) [#/Vol] 3.73 10*6/uL Low 4.2-5.4 [facility] Comment on above: Performed By: #### L 100.0100, L500.2500 ####[facility] [address] [place], [address] RDW SD 42.4 fl Normal 35.1-43.9 [facility] Comment on above: Performed By: #### L 100.0100, L500.2500 ####[facility] [address] [place], [address] WBC (Bld) [#/Vol] 8.5 10*3/uL Normal 4.4-11.0 [facility] Comment on above: Performed By: #### L 100.0100, L500.2500 ####[facility] [address] [place], [address] Assessment of wrist artery p atency prior to arterial punctureOrdered By: Debby Gu on 01-27-2025 Arterial patency Wrist artery --pre arterial puncture Positive [facility] Basic Metabolic Profile (BMP )on 01-27-2025 BUN/CRE 27.2 RATIO High 10-20 [facility] Comment on above: Order Comment: post potassium Performed By: #### L 500.2500 ####[facility] [address] [place], [address] Calcium [Mass/Vol] 8.4 mg/dL Normal 7.6-11.0 [facility] Comment on above: Order Comment: post potassium Performed By: #### L 500.2500 ####[facility] [address] [place], [address] Chloride [Moles/Vol] 88 mmol/L Low 98-108 [facility] Comment on above: Order Comment: post potassium Performed By: #### L 500.2500 ####[facility] [address] [place], [address] CO2 [Moles/Vol] 41.8 mmol/L High 21.0-32.0 [facility] Comment on above: Order Comment: post potassium Performed By: #### L 500.2500 ####[facility] [address] [place], [address] Creatinine [Mass/Vol] 0.68 mg/dL Low 0.70-1.20 [facility] Comment on above: Order Comment: post potassium Performed By: #### L 500.2500 ####[facility] [address] [place], [address] ECRCL 65.40 ml/min Normal 50-250 [facility] Comment on above: Order Comment: post potassium Performed By: #### L 500.2500 ####[facility] [address] [place], [address] GAP 11 Normal 5-15 [facility] Comment on above: Order Comment: post potassium Performed By: #### L 500.2500 ####[facility] [address] [place], [address] GFR/1.73 sq M.predicted among non-blacks MDRD (S/P/Bld) [Vol rate/Area] 94 mL/min/{1.73_m2} Normal >60 [facility] Comment on above: Order Comment: post potassium Result Comment: mL/m in/1.73m2 CKD-EPI Creatinine Equation (2020) Performed By: #### L 500.2500 ####[facility] [address] [place], [address] Glucose [Mass/Vol] 78 mg/dL Normal 70-99 [facility] Comment on above: Order Comment: post potassium Performed By: #### L 500.2500 ####[facility] [address] [place], [address] Potassium [Moles/Vol] 3.6 mmol/L Normal 3.3-5.1 [facility] Comment on above: Order Comment: post potassium Performed By: #### L 500.2500 ####[facility] [address] [place], [address] Sodium [Moles/Vol] 140 mmol/L Normal 133-145 [facility] Comment on above: Order Comment: post potassium Performed By: #### L 500.2500 ####[facility] [address] [place], [address] Urea nitrogen [Mass/Vol] 19 mg/dL Normal 4-19 [facility] Comment on above: Order Comment: post potassium Performed By: #### L 500.2500 ####[facility] [address] [place], [address] BUN/CRE 28.6 RATIO High 10-20 [facility] Comment on above: Performed By: #### L 100.0100, L500.2500 ####[facility] [address] [place], [address] Calcium [Mass/Vol] 8.5 mg/dL Normal 7.6-11.0 [facility] Comment on above: Performed By: #### L 100.0100, L500.2500 ####[facility] [address] [place], [address] Chloride [Moles/Vol] 87 mmol/L Low 98-108 [facility] Comment on above: Performed By: #### L 100.0100, L500.2500 ####[facility] [address] [place], [address] CO2 [Moles/Vol] 38.5 mmol/L High 21.0-32.0 [facility] Comment on above: Performed By: #### L 100.0100, L500.2500 ####[facility] [address] [place], [address] Creatinine [Mass/Vol] 0.72 mg/dL Normal 0.70-1.20 [facility] Comment on above: Performed By: #### L 100.0100, L500.2500 ####[facility] [address] [place], [address] ECRCL 65.40 ml/min Normal 50-250 [facility] Comment on above: Performed By: #### L 100.0100, L500.2500 ####[facility] [address] [place], [address] GAP 12 Normal 5-15 [facility] Comment on above: Performed By: #### L 100.0100, L500.2500 ####[facility] [address] [place], [address] GFR/1.73 sq M.predicted among non-blacks MDRD (S/P/Bld) [Vol rate/Area] 90 mL/min/{1.73_m2} Normal >60 [facility] Comment on above: Result Comment: mL/m in/1.73m2 CKD-EPI Creatinine Equation (2020) Performed By: #### L 100.0100, L500.2500 ####[facility] [address] [place], [address] Glucose [Mass/Vol] 101 mg/dL High 70-99 [facility] Comment on above: Performed By: #### L 100.0100, L500.2500 ####[facility] [address] [place], [address] Potassium [Moles/Vol] 2.8 mmol/L Low 3.3-5.1 [facility] Comment on above: Performed By: #### L 100.0100, L500.2500 ####[facility] [address] [place], [address] Sodium [Moles/Vol] 138 mmol/L Normal 133-145 [facility] Comment on above: Performed By: #### L 100.0100, L500.2500 ####[facility] [address] [place], [address] Urea nitrogen [Mass/Vol] 21 mg/dL High 4-19 [facility] Comment on above: Performed By: #### L 100.0100, L500.2500 ####[facility] [address] [place], [address] Blood Gases by [facility] 025 CHAO TEST Positive Normal [facility] Comment on above: Performed By: #### L 9000.0800 ####[facility] [address] [place], [address] Base excess Calc (Bld) [Moles/Vol] 24 mmol/L High -2 to +2 [facility] Comment on above: Performed By: #### L 9000.0800 ####[facility] [address] [place], [address] Blood Gas Type ART Normal [facility] Comment on above: Performed By: #### L 9000.0800 ####[facility] [address] [place], [address] CO2 [Moles/Vol] 48 mmol/L Normal [facility] Comment on above: Performed By: #### L 9000.0800 ####[facility] [address] [place], [address] FI02 35.0 Normal [facility] Comment on above: Performed By: #### L 9000.0800 ####[facility] [address] [place], [address] HCO3 (Bld) [Moles/Vol] 46.4 mmol/L High 22-26 [facility] Comment on above: Performed By: #### L 9000.0800 ####[facility] [address] [place], [address] Mode PS Normal [facility] Comment on above: Performed By: #### L 9000.0800 ####[facility] [address] [place], [address] O2 Delivery Dev Adult Vent Normal [facility] Comment on above: Performed By: #### L 9000.0800 ####[facility] [address] [place], [address] pCO2 52.7 mmHg High 35-45 [facility] Comment on above: Performed By: #### L 9000.0800 ####[facility] [address] [place], [address] PEEP 5 Normal [facility] Comment on above: Performed By: #### L 9000.0800 ####[facility] [address] [place], [address] pH (Bld) 7.55 [pH] High 7.35-7.45 [facility] Comment on above: Performed By: #### L 9000.0800 ####[facility] [address] [place], [address] PO2 60 mmHG Low 75-100 [facility] Comment on above: Performed By: #### L 9000.0800 ####[facility] [address] [place], [address] SITE L Radial Normal [facility] Comment on above: Performed By: #### L 9000.0800 ####[facility] [address] [place], [address] SO2 93 Low 95-99 [facility] Comment on above: Performed By: #### L 9000.0800 ####[facility] [place] [facility] [address] [place], [address] CHAO TEST N/A Normal [facility] Comment on above: Performed By: #### L 8999.0800 ####[facility] [address] [place], [address] Base excess Calc (Bld) [Moles/Vol] 20 mmol/L High -2 to +2 [facility] Comment on above: Performed By: #### L 8999.0800 ####[facility] [address] [place], [address] Blood Gas Type ART Normal [facility] Comment on above: Performed By: #### L 8999.08 ####[facility] [address] [place], [address] CO2 [Moles/Vol] 45 mmol/L Normal [facility] Comment on above: Performed By: #### L 8999.0800 ####[facility] [address] [place], [address] FI02 35.0 Normal [facility] Comment on above: Performed By: #### L 0.0800 ####[facility] [address] [place], [address] HCO3 (Bld) [Moles/Vol] 43.7 mmol/L High 22-26 [facility] Comment on above: Performed By: #### L 8999.0800 ####[facility] [address] [place], [address] Mode AC Normal [facility] Comment on above: Performed By: #### L 0.0800 ####[facility] [address] [place], [address] O2 Delivery Dev Adult Vent Normal [facility] Comment on above: Performed By: #### L 0.0800 ####[facility] [address] [place], [address] pCO2 57.2 mmHg High 35-45 [facility] Comment on above: Performed By: #### L 0.0800 ####[facility] [address] [place], [address] PEEP 5 Normal [facility] Comment on above: Performed By: #### L 8999.0800 ####[facility] [address] [place], [address] pH (Bld) 7.49 [pH] High 7.35-7.45 [facility] Comment on above: Performed By: #### L 8999.0800 ####[facility] [address] [place], [address] PO2 72 mmHG Low 75-100 [facility] Comment on above: Performed By: #### L 0.0800 ####[facility] [address] [place], [address] RR 12 Normal [facility] Comment on above: Performed By: #### L 8999.0800 ####[facility] [address] [place], [address] SITE L Radial Normal [facility] Comment on above: Performed By: #### L 8999.0800 ####[facility] [address] [place], [address] SO2 95 Normal 95-99 [facility] Comment on above: Performed By: #### L 0.0800 ####[facility] [address] [place], [address] Vt 400.0 mL Normal [facility] Comment on above: Performed By: #### L 9000.0800 ####[facility] [address] [place], [address] Blood base excess determinat ionOrdered By: Debby Gu on 01-27-2025 Base excess Calc (BldV) [Moles/Vol] 24 mmol/L High -2-2 [facility] Blood bicarbonate measuremen tOrdered By: Debby Gu on 01-27-2025 HCO3 (Bld) [Moles/Vol] 46.4 mmol/L High 22-26 [facility] CBC W/Diff, Automatedon 10-0 Absolute Lymph 0.28 X10 3/uL Low 0.83-4.51 [facility] Comment on above: Performed By: #### L 100.0100, L500.2500 ####[facility] [address] [place], [address] Absolute Neut 5.8 X10 3/uL Normal 2.0-7.7 [facility] Comment on above: Performed By: #### L 100.0100, L500.2500 ####[facility] [address] [place], [address] Basophils/100 WBC (Bld) 0.0 % Normal 0-1 [facility] Comment on above: Performed By: #### L 100.0100, L500.2500 ####[facility] [address] [place], [address] Eosinophils/100 WBC (Bld) 0.0 % Normal 0-5 [facility] Comment on above: Performed By: #### L 100.0100, L500.2500 ####[facility] [address] [place], [address] Erythrocyte distribution width (RBC) [Ratio] 14.4 % Normal 11.6-14.6 [facility] Comment on above: Performed By: #### L 100.0100, L500.2500 ####[facility] [address] [place], [address] Hematocrit (Bld) [Volume fraction] 27.9 % Low 37-47 [facility] Comment on above: Performed By: #### L 100.0100, L500.2500 ####[facility] [address] [place], [address] Hemoglobin (Bld) [Mass/Vol] 8.9 g/dL Low 12.0-15.0 [facility] Comment on above: Performed By: #### L 100.0100, L500.2500 ####[facility] [address] [place], [address] IG% 0.500 Normal 0.0-0.9 [facility] Comment on above: Result Comment: IG% - Immature Granulocytes (promyelocytes, myelocytes andmetamyelocytes) > 1% indicates that a LEFT SHIFT is Present. Performed By: #### L 100.0100, L500.2500 ####[facility] [address] [place], [address] Lymphocytes/100 WBC (Bld) 4.4 % Low 19-41 [facility] Comment on above: Performed By: #### L 100.0100, L500.2500 ####[facility] [address] [place], [address] MCH (RBC) [Entitic mass] 24.7 pg Low 27.0-32.0 [facility] Comment on above: Performed By: #### L 100.0100, L500.2500 ####[facility] [address] [place], [address] MCHC (RBC) [Mass/Vol] 31.9 g/dL Low 32-36 [facility] Comment on above: Performed By: #### L 100.0100, L500.2500 ####[facility] [address] [place], [address] MCV (RBC) [Entitic vol] 77.3 fL Low 81-99 [facility] Comment on above: Performed By: #### L 100.0100, L500.2500 ####[facility] [address] [place], [address] Monocytes/100 WBC (Bld) 5.3 % Normal 0-10 [facility] Comment on above: Performed By: #### L 100.0100, L500.2500 ####[facility] [address] [place], [address] Neutrophils/100 WBC (Bld) 89.8 % High 47-70 [facility] Comment on above: Performed By: #### L 100.0100, L500.2500 ####[facility] [address] [place], [address] Nucleated RBC (Bld) [#/Vol] 0 10*3/uL Normal 0-5 [facility] Comment on above: Performed By: #### L 100.0100, L500.2500 ####[facility] [address] [place], [address] Platelet mean volume (Bld) [Entitic vol] 10.2 fL Normal 6.2-12.0 [facility] Comment on above: Performed By: #### L 100.0100, L500.2500 ####[facility] [address] [place], [address] Platelets (Bld) [#/Vol] 199 10*3/uL Normal 150-450 [facility] Comment on above: Performed By: #### L 100.0100, L500.2500 ####[facility] [address] [place], [address] RBC (Bld) [#/Vol] 3.61 10*6/uL Low 4.2-5.4 [facility] Comment on above: Performed By: #### L 100.0100, L500.2500 ####[facility] [address] [place], [address] RDW SD 40.8 fl Normal 35.1-43.9 [facility] Comment on above: Performed By: #### L 100.0100, L500.2500 ####[facility] [address] [place], [address] WBC (Bld) [#/Vol] 6.4 10*3/uL Normal 4.4-11.0 [facility] Comment on above: Performed By: #### L 100.0100, L500.2500 ####[facility] [address] [place], [address] Chest 1 View (Portable)on Chest 1 View (Portable) Normal [facility] Culture, Blood (WB)on 2024 CUB Blood cultures x2, from two different sites No growth in 5 days. Normal [facility] Comment on above: Performed By: #### M 200.1000 ####[facility] [address] [place], [address] HH, Hemoglobin AND Hematocri ton 01-27-2025 Hematocrit (Bld) [Volume fraction] 25.8 % Low 37-47 [facility] Comment on above: Performed By: #### L 100.0600 ####[facility] [address] [place], [address] Hemoglobin (Bld) [Mass/Vol] 8.5 g/dL Low 12.0-15.0 [facility] Comment on above: Performed By: #### L 100.0600 ####[facility] [address] [place], [address] Measurement, pHOrdered By: Ceasar Gu on 01-27-2025 pH (Unsp spec) 7.55 [pH] High 7.35-7.45 [facility] No Panel InformationOrdered By: Debby Gu on 01-27-2025 ART [facility] L Radial [facility] PS [facility] Adult Vent [facility] 5 [facility] No Panel InformationOrdered By: Alessandro Palma on 01-27-2025 400.0 mL [facility] 12 [facility] Respiratory Cultureon 2024 RESPC Normal [facility] Comment on above: Performed By: #### M 100.2400, M100.2000 ####[facility] [address] [place], [address] Total carbon dioxide measure mentOrdered By: Debby Gu on 01-27-2025 CO2 [Moles/Vol] 48 mmol/L [facility] Abdomen Single View (Portabl e)on 01-26-2025 Abdomen Single View (Portable) Normal [facility] Activated partial thrombopla stin time (aPTT) in platelet poor plasma by coagulation aOrdered By: Andriy Guzmán on 01-26-2025 aPTT Coag (PPP) [Time] 36.1 s 24.1-36.2 [facility] BRCon 01-26-2025 RC Normal [facility] Comment on above: Result Comment: [id number] AP RC TRANSFUSED 01/26/25 1621 Performed By: #### B RC ####[facility] [address] [place], [address] Basic Metabolic Profile (BMP )on 01-26-2025 BUN/CRE 38.6 RATIO High 10-20 [facility] Comment on above: Performed By: #### L 100.0100, L500.2500 ####[facility] [address] [place], [address] Calcium [Mass/Vol] 8.4 mg/dL Normal 7.6-11.0 [facility] Comment on above: Performed By: #### L 100.0100, L500.2500 ####[facility] [address] [place], [address] Chloride [Moles/Vol] 86 mmol/L Low 98-108 [facility] Comment on above: Performed By: #### L 100.0100, L500.2500 ####[facility] [address] [place], [address] CO2 [Moles/Vol] 39.2 mmol/L High 21.0-32.0 [facility] Comment on above: Performed By: #### L 100.0100, L500.2500 ####[facility] [address] [place], [address] Creatinine [Mass/Vol] 0.68 mg/dL Low 0.70-1.20 [facility] Comment on above: Performed By: #### L 100.0100, L500.2500 ####[facility] [address] [place], [address] ECRCL 65.19 ml/min Normal 50-250 [facility] Comment on above: Performed By: #### L 100.0100, L500.2500 ####[facility] [address] [place], [address] GAP 10 Normal 5-15 [facility] Comment on above: Performed By: #### L 100.0100, L500.2500 ####[facility] [address] [place], [address] GFR/1.73 sq M.predicted among non-blacks MDRD (S/P/Bld) [Vol rate/Area] 94 mL/min/{1.73_m2} Normal >60 [facility] Comment on above: Result Comment: mL/m in/1.73m2 CKD-EPI Creatinine Equation (2020) Performed By: #### L 100.0100, L500.2500 ####[facility] [address] [place], [address] Glucose [Mass/Vol] 114 mg/dL High 70-99 [facility] Comment on above: Performed By: #### L 100.0100, L500.2500 ####[facility] [address] [place], [address] Potassium [Moles/Vol] 3.1 mmol/L Low 3.3-5.1 [facility] Comment on above: Performed By: #### L 100.0100, L500.2500 ####[facility] [address] [place], [address] Sodium [Moles/Vol] 135 mmol/L Normal 133-145 [facility] Comment on above: Performed By: #### L 100.0100, L500.2500 ####[facility] [address] [place], [address] Urea nitrogen [Mass/Vol] 26 mg/dL High 4-19 [facility] Comment on above: Performed By: #### L 100.0100, L500.2500 ####[facility] [address] [place], [address] Bilirubin directOrdered By: Andriy Guzmán on 01-26-2025 Bilirubin.direct [Mass/Vol] 0.19 mg/dL Normal 0.00-0.30 [facility] Comment on above: Performed By: #### L 300.3900, L300.4310, L500.3400 ####[facility] [address] [place], [address] Bilirubin, totalOrdered By: Andriy Guzmán on 01-26-2025 Bilirubin [Mass/Vol] 0.33 mg/dL Normal 0.00-1.30 [facility] Comment on above: Performed By: #### L 300.3900, L300.4310, L500.3400 ####[facility] [address] [place], [address] Blood Gases by [facility] 025 CHAO TEST N/A Normal [facility] Comment on above: Performed By: #### L 9000.0800 ####[facility] [address] [place], [address] Base excess Calc (Bld) [Moles/Vol] 20 mmol/L High -2 to +2 [facility] Comment on above: Performed By: #### L 9000.0800 ####[facility] [address] [place], [address] Blood Gas Type ART Normal [facility] Comment on above: Performed By: #### L 9000.0800 ####[facility] [address] [place], [address] CO2 [Moles/Vol] 44 mmol/L Normal [facility] Comment on above: Performed By: #### L 9000.0800 ####[facility] [address] [place], [address] FI02 35.0 Normal [facility] Comment on above: Performed By: #### L 9000.0800 ####[facility] [address] [place], [address] HCO3 (Bld) [Moles/Vol] 42.4 mmol/L High 22-26 [facility] Comment on above: Performed By: #### L 9000.0800 ####[facility] [address] [place], [address] Mode AC Normal [facility] Comment on above: Performed By: #### L 9000.0800 ####[facility] [address] [place], [address] O2 Delivery Dev Adult Vent Normal [facility] Comment on above: Performed By: #### L 9000.0800 ####[facility] [address] [place], [address] pCO2 52.7 mmHg High 35-45 [facility] Comment on above: Performed By: #### L 9000.0800 ####[facility] [address] [place], [address] PEEP 5 Normal [facility] Comment on above: Performed By: #### L 0.0800 ####[facility] [address] [place], [address] pH (Bld) 7.51 [pH] High 7.35-7.45 [facility] Comment on above: Performed By: #### L 9000.0800 ####[facility] [address] [place], [address] PO2 64 mmHG Low 75-100 [facility] Comment on above: Performed By: #### L 9000.0800 ####[facility] [address] [place], [address] RR 12 Normal [facility] Comment on above: Performed By: #### L 0.0800 ####[facility] [address] [place], [address] SITE L Radial Normal [facility] Comment on above: Performed By: #### L 9000.0800 ####[facility] [address] [place], [address] SO2 93 Low 95-99 [facility] Comment on above: Performed By: #### L 9000.0800 ####[facility] [address] [place], [address] Vt 400.0 mL Normal [facility] Comment on above: Performed By: #### L 9000.0800 ####[facility] [address] [place], [address] CBC W/Diff, Automatedon 10-0 3-2025 Absolute Lymph 0.27 X10 3/uL Low 0.83-4.51 [facility] Comment on above: Performed By: #### L 100.0100, L500.2500 ####[facility] [address] [place], [address] Absolute Neut 7.5 X10 3/uL Normal 2.0-7.7 [facility] Comment on above: Performed By: #### L 100.0100, L500.2500 ####[facility] [address] [place], [address] Basophils/100 WBC (Bld) 0.1 % Normal 0-1 [facility] Comment on above: Performed By: #### L 100.0100, L500.2500 ####[facility] [address] [place], [address] Eosinophils/100 WBC (Bld) 0.0 % Normal 0-5 [facility] Comment on above: Performed By: #### L 100.0100, L500.2500 ####[facility] [address] [place], [address] Erythrocyte distribution width (RBC) [Ratio] 13.9 % Normal 11.6-14.6 [facility] Comment on above: Performed By: #### L 100.0100, L500.2500 ####[facility] [address] [place], [address] Hematocrit (Bld) [Volume fraction] 23.7 % Low 37-47 [facility] Comment on above: Performed By: #### L 100.0100, L500.2500 ####[facility] [address] [place], [address] Hemoglobin (Bld) [Mass/Vol] 7.4 g/dL Low 12.0-15.0 [facility] Comment on above: Performed By: #### L 100.0100, L500.2500 ####[facility] [address] [place], [address] IG% 0.500 Normal 0.0-0.9 [facility] Comment on above: Result Comment: IG% - Immature Granulocytes (promyelocytes, myelocytes andmetamyelocytes) > 1% indicates that a LEFT SHIFT is Present. Performed By: #### L 100.0100, L500.2500 ####[facility] [address] [place], [address] Lymphocytes/100 WBC (Bld) 3.3 % Low 19-41 [facility] Comment on above: Performed By: #### L 100.0100, L500.2500 ####[facility] [address] [place], [address] MCH (RBC) [Entitic mass] 24.0 pg Low 27.0-32.0 [facility] Comment on above: Performed By: #### L 100.0100, L500.2500 ####[facility] [address] [place], [address] MCHC (RBC) [Mass/Vol] 31.2 g/dL Low 32-36 [facility] Comment on above: Performed By: #### L 100.0100, L500.2500 ####[facility] [address] [place], [address] MCV (RBC) [Entitic vol] 76.9 fL Low 81-99 [facility] Comment on above: Performed By: #### L 100.0100, L500.2500 ####[facility] [address] [place], [address] Monocytes/100 WBC (Bld) 4.6 % Normal 0-10 [facility] Comment on above: Performed By: #### L 100.0100, L500.2500 ####[facility] [address] [place], [address] Neutrophils/100 WBC (Bld) 91.5 % High 47-70 [facility] Comment on above: Performed By: #### L 100.0100, L500.2500 ####[facility] [address] [place], [address] Nucleated RBC (Bld) [#/Vol] 0 10*3/uL Normal 0-5 [facility] Comment on above: Performed By: #### L 100.0100, L500.2500 ####[facility] [address] [place], [address] Platelet mean volume (Bld) [Entitic vol] 10.9 fL Normal 6.2-12.0 [facility] Comment on above: Performed By: #### L 100.0100, L500.2500 ####[facility] [address] [place], [address] Platelets (Bld) [#/Vol] 240 10*3/uL Normal 150-450 [facility] Comment on above: Performed By: #### L 100.0100, L500.2500 ####[facility] [address] [place], [address] RBC (Bld) [#/Vol] 3.08 10*6/uL Low 4.2-5.4 [facility] Comment on above: Performed By: #### L 100.0100, L500.2500 ####[facility] [address] [place], [address] RDW SD 38.9 fl Normal 35.1-43.9 [facility] Comment on above: Performed By: #### L 100.0100, L500.2500 ####[facility] [address] [place], [address] WBC (Bld) [#/Vol] 8.2 10*3/uL Normal 4.4-11.0 [facility] Comment on above: Performed By: #### L 100.0100, L500.2500 ####[facility] [address] [place], [address] Absolute Lymph 0.30 X10 3/uL Low 0.83-4.51 [facility] Comment on above: Performed By: #### L 100.0100 ####[facility] [address] [place], [address] Absolute Neut 6.2 X10 3/uL Normal 2.0-7.7 [facility] Comment on above: Performed By: #### L 100.0100 ####[facility] [address] [place], [address] Basophils/100 WBC (Bld) 0.1 % Normal 0-1 [facility] Comment on above: Performed By: #### L 100.0100 ####[facility] [address] [place], [address] Eosinophils/100 WBC (Bld) 0.0 % Normal 0-5 [facility] Comment on above: Performed By: #### L 100.0100 ####[facility] [address] [place], [address] Erythrocyte distribution width (RBC) [Ratio] 13.8 % Normal 11.6-14.6 [facility] Comment on above: Performed By: #### L 100.0100 ####[facility] [address] [place], [address] Hematocrit (Bld) [Volume fraction] 22.8 % Low 37-47 [facility] Comment on above: Performed By: #### L 100.0100 ####[facility] [address] [place], [address] Hemoglobin (Bld) [Mass/Vol] 7.1 g/dL Low 12.0-15.0 [facility] Comment on above: Performed By: #### L 100.0100 ####[facility] [address] [place], [address] IG% 0.400 Normal 0.0-0.9 [facility] Comment on above: Result Comment: IG% - Immature Granulocytes (promyelocytes, myelocytes andmetamyelocytes) > 1% indicates that a LEFT SHIFT is Present. Performed By: #### L 100.0100 ####[facility] [address] [place], [address] Lymphocytes/100 WBC (Bld) 4.4 % Low 19-41 [facility] Comment on above: Performed By: #### L 100.0100 ####[facility] [address] [place], [address] MCH (RBC) [Entitic mass] 24.3 pg Low 27.0-32.0 [facility] Comment on above: Performed By: #### L 100.0100 ####[facility] [address] [place], [address] MCHC (RBC) [Mass/Vol] 31.1 g/dL Low 32-36 [facility] Comment on above: Performed By: #### L 100.0100 ####[facility] [address] [place], [address] MCV (RBC) [Entitic vol] 78.1 fL Low 81-99 [facility] Comment on above: Performed By: #### L 100.0100 ####[facility] [address] [place], [address] Monocytes/100 WBC (Bld) 4.2 % Normal 0-10 [facility] Comment on above: Performed By: #### L 100.0100 ####[facility] [address] [place], [address] Neutrophils/100 WBC (Bld) 90.9 % High 47-70 [facility] Comment on above: Performed By: #### L 100.0100 ####[facility] [address] [place], [address] Nucleated RBC (Bld) [#/Vol] 0 10*3/uL Normal 0-5 [facility] Comment on above: Performed By: #### L 100.0100 ####[facility] [address] [place], [address] Platelet mean volume (Bld) [Entitic vol] 11.2 fL Normal 6.2-12.0 [facility] Comment on above: Performed By: #### L 100.0100 ####[facility] [address] [place], [address] Platelets (Bld) [#/Vol] 212 10*3/uL Normal 150-450 [facility] Comment on above: Performed By: #### L 100.0100 ####[facility] [address] [place], [address] RBC (Bld) [#/Vol] 2.92 10*6/uL Low 4.2-5.4 [facility] Comment on above: Performed By: #### L 100.0100 ####[facility] [address] [place], [address] RDW SD 39.6 fl Normal 35.1-43.9 [facility] Comment on above: Performed By: #### L 100.0100 ####[facility] [address] [place], [address] WBC (Bld) [#/Vol] 6.9 10*3/uL Normal 4.4-11.0 [facility] Comment on above: Performed By: #### L 100.0100 ####[facility] [address] [place], [address] Chest 1 View (Portable)on Chest 1 View (Portable) Normal [facility] Consultation - Cardiologyon 01-26-2025 Consultation - Cardiology Normal [facility] Echo, Limited Studyon 2024 Echo, Limited Study Normal [facility] HH, Hemoglobin AND Hematocri ton 01-26-2025 Hematocrit (Bld) [Volume fraction] 26.2 % Low 37-47 [facility] Comment on above: Performed By: #### L 100.0600 ####[facility] [address] [place], [address] Hemoglobin (Bld) [Mass/Vol] 8.8 g/dL Low 12.0-15.0 [facility] Comment on above: Performed By: #### L 100.0600 ####[facility] [address] [place], [address] HCT Normal 37-47 [facility] Comment on above: Result Comment: ICU CALLED TO CANCEL (MIMI) Performed By: #### L 100.0600 ####[facility] [address] [place], [address] HGB Normal 12.0-15.0 [facility] Comment on above: Result Comment: ICU CALLED TO CANCEL (MIMI) Performed By: #### L 100.0600 ####[facility] [address] [place], [address] Hematocrit (Bld) [Volume fraction] 21.4 % Low 37-47 [facility] Comment on above: Performed By: #### L 100.0600 ####[facility] [address] [place], [address] Hemoglobin (Bld) [Mass/Vol] 6.7 g/dL Low 12.0-15.0 [facility] Comment on above: Performed By: #### L 100.0600 ####[facility] [address] [place], [address] Iron measurement (mass/mass) Ordered By: Alessandro Palma on 01-26-2025 Iron (Unsp spec) [Mass/Mass] 12 ug/dL Low 50-170 [facility] Iron+Iron Binding Capacityon 01-26-2025 Iron [Mass/Vol] 12 ug/dL Low 50-170 [facility] Comment on above: Performed By: #### L 503.6030, L100.9950, L503.6550 ####[facility] [address] [place], [address] IRON SATURATION 4.1 Low 13-59 [facility] Comment on above: Performed By: #### L 503.6030, L100.9950, L503.6550 ####[facility] [address] [place], [address] TIBC 280 ug/dL Normal 250-450 [facility] Comment on above: Performed By: #### L 503.6030, L100.9950, L503.6550 ####[facility] [address] [place], [address] UIBC 268 ug/dL Normal 228-428 [facility] Comment on above: Performed By: #### L 503.6030, L100.9950, L503.6550 ####[facility] [address] [place], [address] Limited echocardiogram repor tOrdered By: Amy Keenan on 01-26-2025 Study report [facility] Work Phone: Liver Profileon 01-26-2025 ALK PHOS 44 U/L Normal 35-104 [facility] Comment on above: Performed By: #### L 300.3900, L300.4310, L500.3400 ####[facility] [address] [place], [address] AST [Catalytic activity/Vol] 21 U/L Normal <=31 [facility] Comment on above: Performed By: #### L 300.3900, L300.4310, L500.3400 ####[facility] [address] [place], [address] T PROT 5.4 g/dL Low 5.9-8.4 [facility] Comment on above: Performed By: #### L 300.3900, L300.4310, L500.3400 ####[facility] [address] [place], [address] No Panel InformationOrdered By: Andriy Guzmán on 01-26-2025 21 U/L <32 [facility] No Panel InformationOrdered By: Alessandro Palma on 01-26-2025 268 ug/dL 228-428 [facility] Partial Thromboplast Timeon 01-26-2025 aPTT Coag (Bld) [Time] 36.1 s Normal 24.1-36.2 [facility] Comment on above: Performed By: #### L 300.3900, L300.4310, L500.3400 ####[facility] [address] [place], [address] Prothrombin Time w/INRon INR Coag (PPP) [Relative time] 1.5 {INR} Normal [facility] Comment on above: Performed By: #### L 300.3900, L300.4310, L500.3400 ####[facility] [address] [place], [address] Prothrombin timeOrdered By: Andriy Guzmán on 01-26-2025 PT Coag (PPP) [Time] 18.2 s High 11.7-14.9 [facility] Comment on above: Performed By: #### L 300.3900, L300.4310, L500.3400 ####[facility] [address] [place], [address] Retic Panelon 01-26-2025 IM RET FRACTION 16.90 High 3.00-15.90 [facility] Comment on above: Performed By: #### L 503.6030, L100.9950, L503.6550 ####[facility] [address] [place], [address] RET-HE 22.9 pg Low 30-35 [facility] Comment on above: Performed By: #### L 503.6030, L100.9950, L503.6550 ####[facility] [address] [place], [address] Retic Count 2.14 High 0.5-1.5 [facility] Comment on above: Performed By: #### L 503.6030, L100.9950, L503.6550 ####[facility] [address] [place], [address] Reticulocyte hemoglobin equi valent (RET-He) measurementOrdered By: Alessandro Palma on 01-26-2025 Hemoglobin (Reticulocytes) [Entitic mass] 22.9 pg Low 30-35 [facility] Reticulocytes Auto (Bld) [#/ Vol]Ordered By: Alessandro Palma on 01-26-2025 Reticulocytes/100 RBC (Bld) 2.14 % High 0.5-1.5 [facility] Serum globulin measurementOr dered By: Andriy Guzmán on 01-26-2025 Globulin (S) [Mass/Vol] 1.9 g/dL Low 2.2-4.2 [facility] Comment on above: Performed By: #### L 300.3900, L300.4310, L500.3400 ####[facility] [address] [place], [address] Serum or plasma alanine retana otransferase (ALT) measurementOrdered By: Andriy Guzmán on 01-26-2025 ALT [Catalytic activity/Vol] 19 U/L Normal <=34 [facility] Comment on above: Performed By: #### L 300.3900, L300.4310, L500.3400 ####[facility] [address] [place], [address] Serum or plasma albumin kadi urement (mass/volume)Ordered By: Andriy Guzmán on 01-26-2025 Albumin [Mass/Vol] 3.5 g/dL Normal 3.4-4.8 [facility] Comment on above: Performed By: #### L 300.3900, L300.4310, L500.3400 ####[facility] [address] [place], [place], [address] Serum or plasma alkaline renetta sphatase measurementOrdered By: Andriy Guzmán on 01-26-2025 ALP [Catalytic activity/Vol] 44 U/L 35-104 [facility] Serum or plasma ferritin ranjith surement (mass/volume)Ordered By: Alessandro Palma on 01-26-2025 Ferritin [Mass/Vol] 29 ng/mL Normal 22-378 [facility] Comment on above: Performed By: #### L 503.6030, L100.9950, L503.6550 ####[facility] [address] [place], [place], [address] Serum or plasma iron saturat ion measurement (mass fraction)Ordered By: Alessandro Palma on 01-26-2025 Iron saturation [Mass fraction] 4.1 % Low 13-59 [facility] Total proteinOrdered By: Spencer on 01-26-2025 Protein [Mass/Vol] 5.4 g/dL Low 5.9-8.4 [facility] Type AND Screenon 01-26-2025 Ab SCREEN GEL Negative Normal [facility] Comment on above: Order Comment: A Performed By: #### B TS ####[facility] [address] [place], [place], [address] ABO and Rh group Nom (Bld) Blood group A Rh(D) positive Normal [facility] Comment on above: Order Comment: A Performed By: #### B TS ####[facility] [address] [place], [place], [address] 12 Lead EKGon 01-25-2025 12 Lead EKG Normal [facility] Absolute lymphocyte countOrd ered By: Mercy Flores on 01-25-2025 Lymphocytes Auto (Unsp spec) [#/Vol] 1.53 10*3/uL 0.83-4.51 [facility] Anion gap in Serum or Plasma Ordered By: Mercy Flores on 01-25-2025 Anion gap [Moles/Vol] 9 mmol/L 5-15 [facility] Automated lymphocyte count a s percentage of total leukocytesOrdered By: Mercy Flores on 01-25-2025 Lymphocytes/100 WBC Auto (Unsp spec) 12.5 % Low 19-41 [facility] BUN/creatinine ratioOrdered By: Mercy Flores on 01-25-2025 Urea nitrogen/Creatinine [Mass ratio] 48.1 mg/mg High 02-12 [facility] Basic Metabolic Profile (BMP )on 01-25-2025 BUN/CRE 48.1 RATIO High 02-12 [facility] Comment on above: Performed By: #### L 500.2500, L100.0100 ####[facility] [address] [place], [address] ECRCL 65.65 ml/min Normal 50-250 [facility] Comment on above: Performed By: #### L 500.2500, L100.0100 ####[facility] [address] [place], [address] GAP 9 Normal - [facility] Comment on above: Performed By: #### L 500.2500, L100.0100 ####[facility] [address] [place], [address] Potassium [Moles/Vol] 3.5 mmol/L Normal 3.3-5.1 [facility] Comment on above: Performed By: #### L 500.2500, L100.0100 ####[facility] [address] [place], [address] Basophil percentageOrdered B y: Mercy Flores on 01-25-2025 Basophils/100 WBC (Bld) 0.2 % 0-1 [facility] Bilirubin Test strip Ql (U)O rdered By: Andriy Guzmán on 01-25-2025 Bilirubin Ql (U) Negative Negative [facility] Bilirubin directOrdered By: Alessandro Palma on 01-25-2025 Bilirubin.direct [Mass/Vol] 0.17 mg/dL 0.00-0.30 [facility] Bilirubin, totalOrdered By: Alessandro Palma on 01-25-2025 Bilirubin [Mass/Vol] 0.34 mg/dL 0.00-1.30 [facility] Base excess Calc (Bld) [Moles/Vol] 23 mmol/L High -2 to +2 [facility] Comment on above: Performed By: #### L 9000.0800 ####[facility] [address] [place], [address] Blood Gas Type ART Normal [facility] Comment on above: Performed By: #### L 9000.0800 ####[facility] [address] [place], [address] CO2 [Moles/Vol] 48 mmol/L Normal [facility] Comment on above: Performed By: #### L 9000.0800 ####[facility] [address] [place], [address] FI02 30.0 Normal [facility] Comment on above: Performed By: #### L 9000.0800 ####[facility] [address] [place], [address] HCO3 (Bld) [Moles/Vol] 46.3 mmol/L High 22-26 [facility] Comment on above: Performed By: #### L 9000.0800 ####[facility] [address] [place], [address] Mode AC Normal [facility] Comment on above: Performed By: #### L 9000.0800 ####[facility] [address] [place], [address] O2 Delivery Dev Adult Vent Normal [facility] Comment on above: Performed By: #### L 9000.0800 ####[facility] [address] [place], [address] pCO2 58.7 mmHg High 35-45 [facility] Comment on above: Performed By: #### L 9000.0800 ####[facility] [address] [place], [address] PEEP 5 Normal [facility] Comment on above: Performed By: #### L 9000.0800 ####[facility] [address] [place], [address] pH (Bld) 7.51 [pH] High 7.35-7.45 [facility] Comment on above: Performed By: #### L 9000.0800 ####[facility] [address] [place], [address] PO2 51 mmHG Low 75-100 [facility] Comment on above: Performed By: #### L 9000.0800 ####[facility] [address] [place], [address] RR 16 Normal [facility] Comment on above: Performed By: #### L 9000.0800 ####[facility] [address] [place], [address] SITE L Brach Normal [facility] Comment on above: Performed By: #### L 9000.0800 ####[facility] [address] [place], [address] SO2 87 Low 95-99 [facility] Comment on above: Performed By: #### L 9000.0800 ####[facility] [address] [place], [address] Vt 400.0 mL Normal [facility] Comment on above: Performed By: #### L 9000.0800 ####[facility] [address] [place], [address] Blood base excess determinat ionOrdered By: Mercy Flores on 01-25-2025 Base excess Calc (BldV) [Moles/Vol] 23 mmol/L High -2-2 [facility] Blood bicarbonate measuremen tOrdered By: Mercy Flores on 01-25-2025 HCO3 (Bld) [Moles/Vol] 46.3 mmol/L High 22-26 [facility] Blood cultureOrdered By: Keyla Flores on 01-25-2025 Bacteria identified Cx Nom (Bld) No growth in 5 days. [facility] Brain/Head without Contrasto n 01-25-2025 Brain/Head without Contrast Normal [facility] CBC W/Diff, Automatedon 10-0 Absolute Lymph 1.53 X10 3/uL Normal 0.83-4.51 [facility] Comment on above: Performed By: #### L 500.2500, L100.0100 ####[facility] [address] [place], [address] Absolute Neut 9.1 X10 3/uL High 2.0-7.7 [facility] Comment on above: Performed By: #### L 500.2500, L100.0100 ####[facility] [address] [place], [address] Basophils/100 WBC (Bld) 0.2 % Normal 0-1 [facility] Comment on above: Performed By: #### L 500.2500, L100.0100 ####[facility] [address] [place], [address] Eosinophils/100 WBC (Bld) 1.3 % Normal 0-5 [facility] Comment on above: Performed By: #### L 500.2500, L100.0100 ####[facility] [address] [place], [address] Erythrocyte distribution width (RBC) [Ratio] 13.6 % Normal 11.6-14.6 [facility] Comment on above: Performed By: #### L 500.2500, L100.0100 ####[facility] [address] [place], [address] Hematocrit (Bld) [Volume fraction] 28.8 % Low 37-47 [facility] Comment on above: Performed By: #### L 500.2500, L100.0100 ####[facility] [address] [place], [address] Hemoglobin (Bld) [Mass/Vol] 8.4 g/dL Low 12.0-15.0 [facility] Comment on above: Performed By: #### L 500.2500, L100.0100 ####[facility] [address] [place], [address] IG% 0.700 Normal 0.0-0.9 [facility] Comment on above: Result Comment: IG% - Immature Granulocytes (promyelocytes, myelocytes andmetamyelocytes) > 1% indicates that a LEFT SHIFT is Present. Performed By: #### L 500.2500, L100.0100 ####[facility] [address] [place], [address] Lymphocytes/100 WBC (Bld) 12.5 % Low 19-41 [facility] Comment on above: Performed By: #### L 500.2500, L100.0100 ####[facility] [address] [place], [address] MCH (RBC) [Entitic mass] 23.9 pg Low 27.0-32.0 [facility] Comment on above: Performed By: #### L 500.2500, L100.0100 ####[facility] [address] [place], [address] MCHC (RBC) [Mass/Vol] 29.2 g/dL Low 32-36 [facility] Comment on above: Performed By: #### L 500.2500, L100.0100 ####[facility] [address] [place], [address] MCV (RBC) [Entitic vol] 81.8 fL Normal 81-99 [facility] Comment on above: Performed By: #### L 500.2500, L100.0100 ####[facility] [address], [address] Monocytes/100 WBC (Bld) 11.0 % High 0-10 [facility] Comment on above: Performed By: #### L 500.2500, L100.0100 ####[facility] [address] [place], [address] Neutrophils/100 WBC (Bld) 74.3 % High 47-70 [facility] Comment on above: Performed By: #### L 500.2500, L100.0100 ####[facility] [address] [place], [address] Nucleated RBC (Bld) [#/Vol] 0 10*3/uL Normal 0-5 [facility] Comment on above: Performed By: #### L 500.2500, L100.0100 ####[facility] [address] [place], [address] Platelet mean volume (Bld) [Entitic vol] 10.5 fL Normal 6.2-12.0 [facility] Comment on above: Performed By: #### L 500.2500, L100.0100 ####[facility] [address] [place], [address] Platelets (Bld) [#/Vol] 315 10*3/uL Normal 150-450 [facility] Comment on above: Performed By: #### L 500.2500, L100.0100 ####[facility] [address] [place], [address] RBC (Bld) [#/Vol] 3.52 10*6/uL Low 4.2-5.4 [facility] Comment on above: Performed By: #### L 500.2500, L100.0100 ####[facility] [address] [place], [address] RDW SD 40.7 fl Normal 35.1-43.9 [facility] Comment on above: Performed By: #### L 500.2500, L100.0100 ####[facility] [address] [place], [address] WBC (Bld) [#/Vol] 12.2 10*3/uL High 4.4-11.0 [facility] Comment on above: Performed By: #### L 500.2500, L100.0100 ####[facility] [address] [place], [address] [facility] DEN[facility]ON[facility]ALE[facility] ([id number]) 1955 F Date Time Provider Department 01/25/25 [facility] your visit today, we recorded the following information about you: Judy Bliss RN 01/25/2025 3:27 PM Signed Palma Anguiano from [facility] calls and states that patient has been Admitted to [facility]. Patient is on a Vent in ICU. KAREN Werner Mark D, MD 01/25/2025 3:56 PM Signed Noted Yoseph Fall MD Allergies As of Date: 01/25/2025 (No Known Allergies) Date Reviewed: 01/22/2025 Reviewed by: Gregor Fernandez APRN.SHIPPING CHECKER - Fully Assessed Reason for Visit: Patient [...] directed. Dx: COPD J44.9 - Nebulizer Accessories [facility] Mask and supplies as needed - PULSE OXIMETER [facility] Use as directed to check oxygen saturation level - ammonium lactate (AMLACTIN) 12 % lotion Apply 1 application to affected area as needed for Dry Skin. - losartan (COZAAR) 50 mg tablet Take 0.5 tablets by mouth once daily. - OXYGEN, HOME THERAPY, 2.5 L/min by Nasal Cannula route continuous. Use as directred - Disposable Gloves (DISPOSABLE LATEX-FREE GLOVES) [facility] 1 Box once [...] NEC AN (more content not included)... Normal [facility] CPK Total, Creatine Kinaseon 01-25-2025 CPK TOTAL 77 U/L Normal 24-195 [facility] Comment on above: Order Comment: Comme nts: DC when propofol is d/c'd Performed By: #### L 501.5000, L501.3620 ####[facility] [address] [place], [place], [id number] CTA Chest W/WO Contraston CTA Chest W/WO Contrast Normal [facility] Carbon dioxide, total [Moles /volume] in Central venous bloodOrdered By: Mercy Flores on 01-25-2025 CO2 [Moles/Vol] 44.1 mmol/L High 21.0-32.0 [facility] Comment on above: Performed By: #### L 500.2500, L100.0100 ####[facility] [address] [place], [address] Chest 1 View (Portable)on Chest 1 View (Portable) Normal [facility] Chloride assayOrdered By: Naun Flores on 01-25-2025 Chloride [Moles/Vol] 84 mmol/L Low 98-108 [facility] Comment on above: Performed By: #### L 500.2500, L100.0100 ####[facility] [address] 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 Truck Driver Normal [facility] Emergency Department Summary on 01-25-2025 Emergency Department Summary Normal [facility] Eosinophil percentageOrdered By: Mercy Flores on 01-25-2025 Eosinophils/100 WBC (Bld) 1.3 % 0-5 [facility] Erythrocyte distribution wid th ratioOrdered By: Mercy Flores on 01-25-2025 Erythrocyte distribution width (RBC) [Ratio] 13.6 % 11.6-14.6 [facility] Erythrocyte distribution wid th standard deviationOrdered By: Mercy Flores on 01-25-2025 Erythrocyte distribution width (RBC) [Ratio] 40.7 fl 35.1-43.9 [facility] Glomerular filtration rate ( GFR) estimation/1.73 sq m using serum, plasma, or whole bOrdered By: Mercy Flores on 01-25-2025 GFR/1.73 sq M.predicted among non-blacks MDRD (S/P/Bld) [Vol rate/Area] 96 mL/min/{1.73_m2} Normal >60 [facility] Comment on above: Result Comment: mL/m in/1.73m2 CKD-EPI Creatinine Equation (2020) Performed By: #### L 500.2500, L100.0100 ####[facility] [address] [place], [place], [address] Gram stainOrdered By: Mercy Flores on 01-25-2025 Microscopic observation Gram stain Nom (Unsp spec) [facility] H AND P Exam - Hospitaliston 01-25-2025 H&P Exam - Hospitalist Normal [facility] Hematocrit Auto (Bld) [Volum e fraction]Ordered By: Mercy Flores on 01-25-2025 Hematocrit (Bld) [Volume fraction] 28.8 % Low 37-47 [facility] Hemoglobin measurementOrdere d By: Mercy Flores on 01-25-2025 Hemoglobin (Bld) [Mass/Vol] 8.4 g/dL Low 12.0-15.0 [facility] Hyaline casts LM.LPF (Urine sed) [#/Area]Ordered By: Andriy Guzmán on 01-25-2025 Hyaline casts (Urine sed) [#/Area] 10 /[LPF] 0-5 [facility] Immature granulocytes/100 WB C Auto (Bld)Ordered By: Mercy Flores on 01-25-2025 Immature granulocytes/100 WBC (Bld) 0.700 % 0.0-0.9 [facility] Influenza virus A and B and SARS-CoV-2 (COVID-19) and Respiratory syncytial virus RNAOrdered By: Mercy Flores on 01-25-2025 SARS-CoV-2 (COVID-19) RNA ASPEN+probe Ql (Unsp spec) [facility] Ketones Test strip Ql (U)Ord ered By: Andriy Ramirez on 01-25-2025 Ketones Ql (U) 5 mg/dl High Negative [facility] L501.4021on 01-25-2025 Trop T High Sen 38 ng/L High <=14 [facility] Comment on above: Performed By: #### L 503.7505, L501.4021, L503.6005 ####[facility] [address] [place], [address] Lactic Acidon 01-25-2025 Lactate [Moles/Vol] 1.9 mmol/L Normal 0.0-2.0 [facility] Comment on above: Order Comment: Y Performed By: #### L 503.7505, L501.4021, L503.6005 ####[facility] [address] [place], [address] Legionella Antigen Urineon 1 LEGU Normal [facility] Comment on above: Performed By: #### M 300.4600, M300.4500 ####[facility] [address] [place], [address] Liver Profileon 01-25-2025 Albumin [Mass/Vol] 4.5 g/dL Normal 3.4-4.8 [facility] Comment on above: Performed By: #### L 501.2300, L501.5200, L500.3400 ####[facility] [address] [place], [address] ALK PHOS 57 U/L Normal 35-104 [facility] Comment on above: Performed By: #### L 501.2300, L501.5200, L500.3400 ####[facility] [address] [place], [address] ALT [Catalytic activity/Vol] 20 U/L Normal <=34 [facility] Comment on above: Performed By: #### L 501.2300, L501.5200, L500.3400 ####[facility] [address] [place], [address] AST [Catalytic activity/Vol] 22 U/L Normal <=31 [facility] Comment on above: Performed By: #### L 501.2300, L501.5200, L500.3400 ####[facility] [address] [place], [address] Bilirubin [Mass/Vol] 0.34 mg/dL Normal 0.00-1.30 [facility] Comment on above: Performed By: #### L 501.2300, L501.5200, L500.3400 ####[facility] [address] [place], [address] Bilirubin.direct [Mass/Vol] 0.17 mg/dL Normal 0.00-0.30 [facility] Comment on above: Performed By: #### L 501.2300, L501.5200, L500.3400 ####[facility] [address] [place], [address] Globulin (S) [Mass/Vol] 2.2 g/dL Normal 2.2-4.2 [facility] Comment on above: Performed By: #### L 501.2300, L501.5200, L500.3400 ####[facility] [address] [place], [address] T PROT 6.7 g/dL Normal 5.9-8.4 [facility] Comment on above: Performed By: #### L 501.2300, L501.5200, L500.3400 ####[facility] [address] [place], [address] M100.678on 01-25-2025 M100.678 Pending SARS-CoV-2 (COVID 19) Negative INFLUENZA A Negative INFLUENZA B Negative RSV PCR Negative Normal [facility] Comment on above: Performed By: #### M 100.678 ####[facility] [address] [place], [address] MCV (mean corpuscular volume ) determinationOrdered By: Mercy Flores on 01-25-2025 MCV (RBC) [Entitic vol] 81.8 fL 81-99 [facility] Magnesiumon 01-25-2025 Magnesium [Mass/Vol] 1.8 mg/dL Normal 1.5-2.2 [facility] Comment on above: Performed By: #### L 501.2300, L501.5200, L500.3400 ####[facility] [address] [facility] [place], [place], [id number] Magnesium measurement (mass/ volume)Ordered By: Alessandro Palma on 01-25-2025 Magnesium (Unsp spec) [Mass/Vol] 1.8 mg/dL 1.5-2.2 [facility] Mean corpuscular hemoglobin (MCH) determinationOrdered By: Mercy Flores on 01-25-2025 MCH (RBC) [Entitic mass] 23.9 pg Low 27.0-32.0 [facility] Measurement, pHOrdered By: Patrick Flores on 01-25-2025 pH (Unsp spec) 7.51 [pH] High 7.35-7.45 [facility] Microbial respiratory cultur eOrdered By: Mercy Folres on 01-25-2025 Microorganism identified Cx Nom (Unsp spec) Pseudomonas aeruginosa Abnormal [facility] Monocyte percentageOrdered B y: Mercy Flores on 01-25-2025 Monocytes/100 WBC (Bld) 11.0 % High 0-10 [facility] Mucus LM Ql (Urine sed)Order ed By: Andriy Guzmán on 01-25-2025 Mucus Ql (Urine sed) 0 SEEN /hpf [facility] Natriuretic peptide.B prohor sharee N-Terminal [Mass/volume] in Serum or PlasmaOrdered By: Mercy Flores on 01-25-2025 Natriuretic peptide.B prohormone N-Terminal [Mass/Vol] 1192 pg/mL High <900 [facility] Neutrophil percentageOrdered By: Mercy Flores on 01-25-2025 Neutrophils/100 WBC (Bld) 74.3 % High 47-70 [facility] Nitrite Test strip Ql (U)Ord ered By: Andriy Guzmán on 01-25-2025 Nitrite Ql (U) Negative Negative [facility] No Panel InformationOrdered By: Mercy Flores on 01-25-2025 ART [facility] L Brach [facility] AC [facility] Adult Vent [facility] 400.0 mL [facility] 16 [facility] 5 [facility] No Panel InformationOrdered By: Alessandro Palma on 01-25-2025 22 U/L <32 [facility] Phosphoruson 01-25-2025 Phosphate [Mass/Vol] 4.0 mg/dL Normal 2.7-4.5 [facility] Comment on above: Performed By: #### L 501.2300, L501.5200, L500.3400 ####[facility] [address] [place], [address] Platelet countOrdered By: Naun Flores on 01-25-2025 Platelets (Bld) [#/Vol] 315 10*3/uL 150-450 [facility] Potassium measurement (mass/ volume)Ordered By: Mercy Flores on 01-25-2025 Potassium (Unsp spec) [Mass/Vol] 3.5 mmol/L 3.3-5.1 [facility] Pro- Brain NATRIURETIC PEPTI Vicente 01-25-2025 Natriuretic peptide B (Bld) [Mass/Vol] 1192 pg/mL High <=900 [facility] Comment on above: Result Comment: Hear t Failure Unlikely: < 300 pg/mLHeart Failure Likely< 50 Years: > 450 pg/mL50-75 Years: > 900 pg/mL>75 Years: > 1800 pg/mL Performed By: #### L 503.7505, L501.4021, L503.6005 ####[facility] [address] [place], [place], [address] Protein Test strip Ql (U)Ord ered By: Andriy Guzmán on 01-25-2025 Protein Ql (U) 500 mg/dl High Negative [facility] RBC Auto (Bld) [#/Vol]Ordere d By: Mercy Flores on 01-25-2025 RBC (Bld) [#/Vol] 3.52 10*6/uL Low 4.2-5.4 [facility] Serum creatinine measurement (mass/volume)Ordered By: Mercy Flores on 01-25-2025 Creatinine [Mass/Vol] 0.63 mg/dL Low 0.70-1.20 [facility] Comment on above: Performed By: #### L 500.2500, L100.0100 ####[facility] [address] [place], [address] Serum globulin measurementOr dered By: Alessandro Palma on 01-25-2025 Globulin (S) [Mass/Vol] 2.2 g/dL 2.2-4.2 [facility] Serum glucose measurement (m ass/volume)Ordered By: Mercy Flores on 01-25-2025 Glucose [Mass/Vol] 115 mg/dL High 70-99 [facility] Comment on above: Performed By: #### L 500.2500, L100.0100 ####[facility] [address] [place], [address] Serum or plasma alanine retana otransferase (ALT) measurementOrdered By: Alessandro Palma on 01-25-2025 ALT [Catalytic activity/Vol] 20 U/L <35 [facility] Serum or plasma albumin kadi urement (mass/volume)Ordered By: Alessandro Palma on 01-25-2025 Albumin [Mass/Vol] 4.5 g/dL 3.4-4.8 [facility] Serum or plasma alkaline renetta sphatase measurementOrdered By: Alessandro Palma on 01-25-2025 ALP [Catalytic activity/Vol] 57 U/L 35-104 [facility] Serum or plasma calcium kadi urement (mass/volume)Ordered By: Mercy Flores on 01-25-2025 Calcium [Mass/Vol] 9.0 mg/dL Normal 7.6-11.0 [facility] Comment on above: Performed By: #### L 500.2500, L100.0100 ####[facility] [address] [place], [address] Serum or plasma creatine kin ase activityOrdered By: Mercy Flores on 01-25-2025 CK [Catalytic activity/Vol] 77 U/L 24-195 [facility] Serum or plasma urea nitroge n measurement (mass/volume)Ordered By: Mercy Flores on 01-25-2025 Urea nitrogen [Mass/Vol] 31 mg/dL High 4-19 [facility] Comment on above: Performed By: #### L 500.2500, L100.0100 ####[facility] [address] [place], [address] Sodium levelOrdered By: Sandrita Flores on 01-25-2025 Sodium [Moles/Vol] 137 mmol/L Normal 133-145 [facility] Comment on above: Performed By: #### L 500.2500, L100.0100 ####[facility] [address] [place], [address] Squamous epithelial cells de tection in urine sediment by light microscopyOrdered By: Andriy Guzmán on 01-25-2025 Epithelial cells.squamous LM Ql (Urine sed) 0 SEEN /hpf 5-10 [facility] Strep pneumoniae Antig(UR,CS F)on 01-25-2025 STPAG Normal [facility] Comment on above: Performed By: #### M 300.4600, M300.4500 ####[facility] [address] [place], [address] Total carbon dioxide measure mentOrdered By: Mercy Flores on 01-25-2025 CO2 [Moles/Vol] 48 mmol/L [facility] Total proteinOrdered By: Eliza kasandra Louie on 01-25-2025 Protein [Mass/Vol] 6.7 g/dL 5.9-8.4 [facility] Triglycerideson 01-25-2025 Triglyceride [Mass/Vol] 135 mg/dL Normal [facility] Comment on above: Order Comment: Comme nts: DC when propofol is d/c'dDC when propofol is d/c'd Result Comment: The drugs N-Acetylcysteine and Metamizole may falselydepress this assay.Normal range: <150 mg/dLBorderline High: 150-199 mg/dLHigh: 200-499 mg/dLVery High: >500 mg/dL Performed By: #### L 501.5000, L501.3620 ####[facility] [address] [place], [address] Troponin T HS 2 HRon 025 Trop T High Sen 31 ng/L High <=14 [facility] Comment on above: Performed By: #### L 499.0042 ####[facility] [address] [place], [address] Troponin T HS 4 HRon 025 Trop T High Sen Normal <=14 [facility] Comment on above: Result Comment: Canc elled via OM: Order cancelled - Patient discharged Performed By: #### L 499.0043 ####[facility] [address] [place], [address] Troponin T.cardiac [Mass/vol ume] in Serum or Plasma by High sensitivity methodOrdered By: Mercy Flores on 01-25-2025 Troponin T.cardiac High sensitivity method [Mass/Vol] 31 ng/L High <14 [facility] Troponin T.cardiac High sensitivity method [Mass/Vol] 38 ng/L High <14 [facility] Urinalysis, Completeon 01-25 BACTERIA 3+ /hpf Normal None Seen [facility] Comment on above: Order Comment: COLLE CTOR TO SPECIFY Performed By: #### L 400.0001 ####[facility] [address] [place], [address] CAST,HYALINE 10-25 SEEN Normal 0-5 [facility] Comment on above: Order Comment: COLLE CTOR TO SPECIFY Performed By: #### L 400.0001 ####[facility] [address] [place], [address] RBC 0-5 SEEN Normal 0-5 [facility] Comment on above: Order Comment: CHRISTIANNE CTOR TO SPECIFY Performed By: #### L 400.0001 ####[facility] [address] [place], [address] WBC 0-5 SEEN Normal 0-5 [facility] Comment on above: Order Comment: CHRISTIANNE CTOR TO SPECIFY Performed By: #### L 400.0001 ####[facility] [address] [place], [address] EPI,SQUAMOUS 0 SEEN Normal 5-10 [facility] Comment on above: Order Comment: CHRISTIANNE CTOR TO SPECIFY Performed By: #### L 400.0001 ####[facility] [address] [place], [address] Mucus Ql (Urine sed) 0 SEEN Normal [facility] Comment on above: Order Comment: CHRISTIANNE CTOR TO SPECIFY Performed By: #### L 400.0001 ####[facility] [address] [place], [address] Urine Legionella pneumophila antigen detectionOrdered By: Alessandro Palma on 01-25-2025 L. pneumophila Ag Ql (U) [facility] Urine clarityOrdered By: Spencer on 01-25-2025 Clarity (U) Sl. Cloudy Clear [facility] Urine color determinationOrd ered By: Andriy Guzmán on 01-25-2025 Color (U) Yellow Yellow [facility] Urine glucose detectionOrder ed By: Andriy Guzmán on 01-25-2025 Glucose Ql (U) Normal mg/dl Normal [facility] Urine leukocyte esterase det ection by dipstickOrdered By: Andriy Guzmán on 01-25-2025 Leukocyte esterase Test strip Ql (U) Negative Negative [facility] Urine pHOrdered By: Andriy cooper on 01-25-2025 pH (U) 6.0 [pH] 5.0 - 8.0 [facility] Urine sediment bacteria coun t by microscopy (number/high power field)Ordered By: Andriy Guzmán on 01-25-2025 Bacteria LM.HPF (Urine sed) [#/Area] 3 /[HPF] None Seen [facility] Urine specific gravity measu rementOrdered By: Andriy Guzmán on 01-25-2025 Specific gravity (U) [Rel density] 1.025 1.002-1.030 [facility] Urine urobilinogen measureme ntOrdered By: Andriy Guzmán on 01-25-2025 Urobilinogen Ql (U) Normal mg/dl Normal [facility] White blood cell (WBC) count Ordered By: Mercy Flores on 01-25-2025 WBC (Bld) [#/Vol] 12.2 10*3/uL High 4.4-11.0 [facility] White blood cell countOrdere d By: Andriy Guzmán on 01-25-2025 White blood cell count 0-5 SEEN /hpf 0-5 [facility] 36on 01-23-2025 36 Spoke with patient and she scheduled a dental appt on January 30 at [facility], will plan to follow-up after that Normal [facility] DEN[facility] GONZALE[facility] ([id number]) 1955 F Date Time Provider Department 01/23/25 YOSEPH FALL During your visit today, we recorded the following information about you: Martínez Louie RN 01/23/2025 1:12 PM Signed Rafa- [facility]- reporting SN POC: will extend SN to 1 x week for 3 weeks. No call back needed. FYI: pt reports pain level at 20/10, pt is anxious, pt has an appt with palliative care next week for assessment. Allergies As of Date: 01/23/2025 (No Known Allergies) Date Reviewed: 01/22/2025 Reviewed by: Gregor Fernandez APRN.SHIPPING CHECKER - Fully Assessed Reason for Visit: [facility] SN POC [Other] Prescriptions as of [...] directed. Dx: COPD J44.9 - Nebulizer Accessories [facility] Mask and supplies as needed - PULSE OXIMETER [facility] Use as directed to check oxygen saturation level - ammonium lactate (AMLACTIN) 12 % lotion Apply 1 application to affected area as needed for Dry Skin. - losartan (COZAAR) 50 mg tablet Take 0.5 tablets by mouth once daily. - OXYGEN, HOME THERAPY, 2.5 L/min by Nasal Cannula route continuous. Use as directred - Disposable Gloves (DISPOSABLE LATEX-FREE GLOVES) [facility] 1 Box once [...] hypertension, benign (more content not included)... [facility] DENIA GONZALEZ ([id number]) 1955 F Date Time Provider Department 01/23/25 [...] birthdate. Requesting response back: call on cell [phone] Joceline Romero January 23, 2025 Mikayla Broussard RN 01/23/2025 11:21 AM Signed Care Coordination Triage Note [facility] [place] Situation: Patient reports Pain--Back or Spine , [...] Dr. Fall to explore referral to a stage settings painter. This patient does not currently meet [...] for assuming pain management. Mikayla Broussard RNCC Er Medical Technician January 23, 2025 11:17 AM Allergies As [...] - o (more content not included)... [facility] (FAMPWS) CARLOSDENIA ([id number]) 1955 F Date Time Provider Department 01/22/25 [facility] During your visit today, we recorded the following information about you: Brynn Watson LPN 01/22/2025 10:09 AM Signed Breanna from [facility] Tobacco Cutter calling patient home health aide called her asking for an order for standard Cane to be faxed to [employer]. Fax number is [phone]. Pending order. Please advise Sukhi Marrero RN [...] call back. Order for cane faxed to [employer]. Magalie Anguiano RN 01/22/2025 7:51 PM Signed Pt called and is notified of providers message and instructions. She voices understanding. Magalie Anguiano RN Allergies As of Date: 01/22/2025 (No Known Allergies) Date Reviewed: 11/22/2024 Reviewed by: Gregor Fernandez APRN.SHIPPING CHECKER - Fully Assessed Reason for Visit: Orders [681] Primary Visit Diagnosis:Generalized osteoarthrosis, involving multiple sites [M15.9] Other Visit Diagnosis:Chronic low back pain with sciatica, sciatica laterality unspecified, unspecified back pain laterality [M54.40, G89.29] Order(s):DME SUPPLY OR ACCESSORY, NOS [[id number]] Order #: [id number] Prescriptions as of 01/22/2025 - doxycycline hyclate [...] 1 Lozenge (more content not included)... Normal [facility] Telephone (INTMWS) DENIA GONZAELZ ([id number]) 1955 F Date Time Provider Department 01/22/25 YOSEPH FALL During your visit today, we recorded the following information about you: Ban Villafana LPN 01/22/2025 2:40 PM Signed Covermymeds PA rec'. This was completed via my chart. Prior authorization approved Payer: [employer] [phone] Note from payer: CaseId:[id number];Stat us:Approved;Review Type:Prior Auth;Coverage Start Date:12/23/2024;Cover age End [...] to its destination. To be filled at: [facility] [address] [place] [address] - [address] [facility] - [phone] Pharmacy notified. Allergies As of Date: 01/22/2025 (No Known Allergies) Date Reviewed: 11/22/2024 Reviewed by: Gregor Fernandez APRN.SHIPPING CHECKER - Fully Assessed Reason for Visit: Insurance [...] as needed. - Nebulizer and Compressor For [facility] Use as directed. Dx: COPD J44.9 - Nebulizer Accessories [facility] Mask and supplies as needed - PULSE OXIMETER [facility] Use as directed to check oxygen saturation level - ammonium lactate (AMLACTIN) 12 % lotion Apply 1 application to affected area as needed for Dry Skin. - losartan (COZAAR) 50 mg tablet Take 0.5 tablets by mouth once daily. - OXYGEN, HOME THERAPY, 2.5 L/min by Nasal Cannula route continuous. Use as directred - Disposable Gloves (DISPOSABLE LATEX-FREE GLOVES) [facility] 1 Box once every month. ICD 10: M15.9, J44.9, M54.40 - Incontinence Pad, Liner, Disp (POISE PADS) pads Use pads as directed. Dx: N39.46 - COMPOUNDED PRESCRIPTION BLOOD PRESSURE CUFF FOR HOME USE. DX: HYPERTENSION I10. AUTO (more content not included)... Normal [facility] 01-18-2025 36 PC to patient. LMOM to call office back. Normal [place] [id number] 36 Spoke with family member on phone, patient currently napping. Family member will have patient call valve clinic back to discuss Normal [facility] DEN[facility]ON[facility]ALE[facility] ([id number]) 1955 F Date Time Provider Department 01/17/25 YOSEPH FALL [facility] During your visit today, we recorded the following information about you: Martínez Louie, RN 01/17/2025 9:21 AM Signed [facility] HH- reports pt lives primarily on the first floor of her home without access to bathroom. Asking pcp to [place] [facility] [place]side Commode. Pended order. Yoseph Fall MD 01/18/2025 3:19 PM Signed Order printed; OK to [place] [facility] [place] requested MD Anaya Chopra Helen E, LPN 01/18/2025 3:58 PM Signed [place] [facility] Yasmin Julien LPN Allergies As of Date: 01/17/2025 (No Known Allergies) Date Reviewed: 11/22/2024 Reviewed by: Gregor Fernandez APRN.SHIPPING CHECKER - Fully Assessed Reason for Visit: Bedside Commode order [Other] Primary Visit Diagnosis:Stage 3 severe COPD by GOLD classification (HCC) [J44.9] Other Visit Diagnoses:Generalized osteoarthrosis, involving multiple sites [M15.9] Chronic respiratory failure with hypoxia (HCC) [J96.11] Obstructive chronic bronchitis with exacerbation (HCC) [J44.1] Order(s):COMMODE CHAIR, STATIONARY [[id number]] Order #: [id number] Prescriptions as of 01/18/2025 - doxycycline hyclate [...] directed. Dx: COPD J44.9 - Nebulizer Accessories [facility] Mask and supplies as needed - PULSE OXIMETER [facility] Use as directed to check oxygen saturation level - ammonium lactate (AMLACTIN) 12 % lotion Apply 1 application to affected area as needed for Dry Skin. - losartan (COZAAR) 50 mg tablet Take 0.5 tablets by mouth once daily. - OXYGEN, HOME THERAPY, 2.5 L/min by Nasal Cannula route continuous. Use as directred - Disposable Gloves (DISPOSABLE LATEX-FREE GLOVES) [facility] 1 Box once every month. ICD 10: M15.9, J44.9, M54.40 - Incontinence Pad, Liner, Disp (POISE PADS) pads Use pads as directed. Dx: N39.46 - COMPOUNDED PRESCRIPTION BLOOD PRESSURE CUFF FOR HOME USE. DX: HYPERTENSION (more content not included)... Normal [facility] 01-16-2025 [facility] Telephone (FAMWS) DENIA GONZALEZ ([id number]) 1955 F Date Time Provider Department 01/16/25 [facility] During your visit today, we recorded the following information about you: Judy Bliss RN 01/16/2025 12:56 PM Signed Rafa from [facility] calls and states that patient is [...] left a detailed voicemail notifying Rafa from [facility] of providers message. Clinic phone number was left in case he had any questions. Magalie Anguiano RN Allergies As of Date: 01/16/2025 (No Known Allergies) Date Reviewed: 11/22/2024 Reviewed by: Gregor Fernandez APRN.SHIPPING CHECKER - Fully Assessed Reason for Visit: Patient [...] and suppl (more content not included)... Normal [facility] 36on 01-15-2025 [address] [facility] Anion gap in Serum or Plasma Ordered By: Zaria Shea on 01-12-2025 Anion gap [Moles/Vol] 10 mmol/L 5-15 [facility] BUN/creatinine ratioOrdered By: Zaria Shea on 01-12-2025 Urea nitrogen/Creatinine [Mass ratio] 24.6 mg/mg High - [facility] Basic Metabolic Profile (BMP )on 01-12-2025 BUN/CRE 24.6 RATIO High - [facility] Comment on above: Performed By: #### L 500.2500 ####[facility] [address] [place], [address] Calcium [Mass/Vol] 8.6 mg/dL Normal 7.6-11.0 [facility] Comment on above: Performed By: #### L 500.2500 ####[facility] [address] [place], [address] Chloride [Moles/Vol] 90 mmol/L Low 98-108 [facility] Comment on above: Performed By: #### L 500.2500 ####[facility] [address] [place], [address] CO2 [Moles/Vol] 40.6 mmol/L High 21.0-32.0 [facility] Comment on above: Performed By: #### L 500.2500 ####[facility] [address] [place], [address] Creatinine [Mass/Vol] 0.59 mg/dL Low 0.70-1.20 [facility] Comment on above: Performed By: #### L 500.2500 ####[facility] [address] [place], [address] GAP 10 Normal 5-15 [facility] Comment on above: Performed By: #### L 500.2500 ####[facility] [address] [place], [address] GFR/1.73 sq M.predicted among non-blacks MDRD (S/P/Bld) [Vol rate/Area] 98 mL/min/{1.73_m2} Normal >60 [facility] Comment on above: Result Comment: mL/m in/1.73m2 CKD-EPI Creatinine Equation (2020) Performed By: #### L 500.2500 ####[facility] [address] [place], [address] Glucose [Mass/Vol] 87 mg/dL Normal 70-99 [facility] Comment on above: Performed By: #### L 500.2500 ####[facility] [address] [place], [address] Potassium [Moles/Vol] 3.8 mmol/L Normal 3.3-5.1 [facility] Comment on above: Performed By: #### L 500.2500 ####[facility] [address] [place], [address] Sodium [Moles/Vol] 140 mmol/L Normal 133-145 [facility] Comment on above: Performed By: #### L 500.2500 ####[facility] [address] [place], [address] Urea nitrogen [Mass/Vol] 14 mg/dL Normal 4- [facility] Comment on above: Performed By: #### L 500.2500 ####[facility] [address] [place], [address] CNPNon 01-12-2025 [facility]NP[facility] Telephone (FAMPWS) DENIA GONZALEZ ([id number]) 1955 F Date Time Provider Department 01/12/25 YOSEPH FALL [facility] During your visit today, we recorded the following information about you: Padmini Abbott, KAREN 01/12/2025 11:00 AM Signed Fred with [facility] calling to report the followin) Patient had recent COPD exacerbation. Is currently coughing up rust colored sputum that pt believes is blood. Pt was off Eliquis recently for a heart cath procedure but has recently resumed it. Reports he had to draw a BMP on pt today for [place] [facility] and states that if PCP wishes to add CBC, to let him know and he can have this added on today. 2) Since the recent addition of hydroxyzine to pt's medication regimen, this caused a kcln-[id number]-vcwa alert to be received by them, between [...] place lab so we can fax to [facility] JOS Garcia Mark D, MD 01/12/2025 5:08 PM Signed Order filed MD Kim Chopra Elizabeth, MA 01/12/2025 5:27 PM Signed Faxed Michelle Alvarez MA Allergies As of Date: 01/12/2025 (No Known Allergies) Date Reviewed: 11/22/2024 Reviewed by: Gregor Fernandez APRN.SHIPPING CHECKER - Fully Assessed Reason for Visit: [facility] Update [Other] Primary Visit Diagnosis:Essential hypertension, benign [I10] Order(s):COMPLETE BLOOD COUNT AND DIFFERENTIAL [SQCBCDIF] Order #: [id number] FUTURE Prescriptions as of 01/12/2025 - furosemide [...] directed. Dx: COPD J44.9 - Nebulizer [facility] Mask and supplies as needed - PULSE OXIMETER [facility] Use as directed to check oxygen saturation level - ammonium lactate (AMLACTIN) 12 % lotion Apply (more content not included)... Normal [facility] Carbon dioxide, total [Moles /volume] in Central venous bloodOrdered By: Zaria Shea on 01-12-2025 CO2 [Moles/Vol] 40.6 mmol/L High 21.0-32.0 [facility] Chloride assayOrdered By: Kuldip Junior on 01-12-2025 Chloride [Moles/Vol] 90 mmol/L Low 98-108 [facility] Glomerular filtration rate ( GFR) estimation/1.73 sq m using serum, plasma, or whole bOrdered By: Zaria Shea on 01-12-2025 GFR/1.73 sq M.predicted among non-blacks MDRD (S/P/Bld) [Vol rate/Area] 98 mL/min/{1.73_m2} >60 [facility] Potassium measurement (mass/ volume)Ordered By: Zaria Shea on 01-12-2025 Potassium (Unsp spec) [Mass/Vol] 3.8 mmol/L 3.3-5.1 [facility] Serum creatinine measurement (mass/volume)Ordered By: Zaria Shea on 01-12-2025 Creatinine [Mass/Vol] 0.59 mg/dL Low 0.70-1.20 [facility] Serum glucose measurement (m ass/volume)Ordered By: Zaria Shea on 01-12-2025 Glucose [Mass/Vol] 87 mg/dL 70-99 [facility] Serum or plasma calcium kadi urement (mass/volume)Ordered By: Zaria Shea on 01-12-2025 Calcium [Mass/Vol] 8.6 mg/dL 7.6-11.0 [facility] Serum or plasma urea nitroge n measurement (mass/volume)Ordered By: Zaria Shea on 01-12-2025 Urea nitrogen [Mass/Vol] 14 mg/dL 4-19 [facility] Sodium levelOrdered By: Cedric Shea on 01-12-2025 Sodium [Moles/Vol] 140 mmol/L 133-145 [facility] 36on 01-09-2025 36 Patient is going to have her home nurse draw the BMP on Wednesday01/12/25. I faxed order [phone] and confirmed. Normal [facility] CNPNon 01-09-2025 CNPN Telephone (FAMPWS) DENIA GONZALEZ ([id number]) 1955 F Date Time Provider Department 01/09/25 [facility] During your visit today, we recorded the [...] with reply to response to #1 above. [phone] KAREN Robledo Krystle, RN 01/09/2025 4:44 PM Signed Breanna with [facility] Field Reimbursement Manager calls to give update on anxiety. Breanna [...] patient which is not on medication list. AKREN Barney Mark D, MD 01/09/2025 5:04 PM Signed Lorazepam is contraindicated due to her chronic opioid use; ordered hydroxyzine instead for prn use MD Zaki Chopra Kathryn, MA 01/09/2025 5:07 PM Signed Breanna notified. Naima Haines MA Allergies As of Date: 01/09/2025 (No Known Allergies) Date Reviewed: 11/22/2024 Reviewed by: Gregor Fernandez APRN.SHIPPING CHECKER - Fully Assessed Reason for Visit: Medication [...] and gum (more content not included)... Normal [facility] 36on 01-08-2025 36 Spoke with patient, she has BMP lab order and will go to [facility] this week to complete. Patient has not seen a dentist in a number of years, does not have dental insurance. Provided patient number to [facility] in [place], [place] [facility] [phone] to schedule next available appt. Advised patient to call office back with appt date/time, can always see [facility] for expedited work-up. Will schedule CTA and TAVR once dental plan known. [facility] CNPNon 01-08-2025 CNPN Telephone (FAMPWS) DENIA GONZALEZ ([id number]) 1955 F Date Time Provider Department 01/[facility] your visit today, we recorded the following information about you: Judy Bliss RN 01/08/2025 10:06 AM Signed Edda from [facility] calls and states that patient was supposed to have PT evaluation last week but was unable to do. Edda asking for a delay in care order for PT. Please review and advise, KAREN Werner Jesse, APRN.[facility] 01/08/2025 11:01 AM Signed Okay for delay in care. Nelson Robert APRN.Martha Paulino MA 01/08/2025 4:09 PM Signed Called and received Edda's identifiable and secure VM. LM with information below from Provider, if questions to contact the office. Martha Baca MA Allergies As of Date: 01/08/2025 (No Known Allergies) Date Reviewed: 11/22/2024 Reviewed by: Gregor Fernandez APRN.[facility] - Fully Assessed Reason for Visit: [...] directed. Dx: COPD J44.9 - Nebulizer Accessories [facility] Mask and supplies as needed - PULSE OXIMETER [facility] Use as directed to check oxygen saturation level - ammonium lactate (AMLACTIN) 12 % lotion Apply 1 application to affected area as needed for Dry Skin. - losartan (COZAAR) 50 mg tablet Take 0.5 tablets by mouth once daily. - OXYGEN, HOME THERAPY, 2.5 L/min by Nasal Cannula route continuous. Use as directred - Disposable Gloves (DISPOSABLE LATEX-FREE GLOVES) [facility] 1 Box once [...] hypertension, benign (more content not included)... Normal [facility] Basic Metabolic Profile (BMP )on 01-06-2025 BUN Normal - [facility] Comment on above: Result Comment: Canc elled via OM: Order cancelled - Patient discharged Performed By: #### L 100.0100, L500.2500 ####[facility] [address] [place], [address] BUN/CRE Normal 10-20 [facility] Comment on above: Result Comment: Canc elled via OM: Order cancelled - Patient discharged Performed By: #### L 100.0100, L500.2500 ####[facility] [address] [place], [address] Calcium Normal 7.6-11.0 [facility] Comment on above: Result Comment: Canc elled via OM: Order cancelled - Patient discharged Performed By: #### L 100.0100, L500.2500 ####[facility] [address] [place], [address] CL Normal 98-108 [facility] Comment on above: Result Comment: Canc elled via OM: Order cancelled - Patient discharged Performed By: #### L 100.0100, L500.2500 ####[facility] [address] [place], [address] CO2 Normal 21.0-32.0 [facility] Comment on above: Result Comment: Canc elled via OM: Order cancelled - Patient discharged Performed By: #### L 100.0100, L500.2500 ####[facility] [address] [place], [address] CREAT,SERUM Normal 0.70-1.20 [facility] Comment on above: Result Comment: Canc elled via OM: Order cancelled - Patient discharged Performed By: #### L 100.0100, L500.2500 ####[facility] [address] [place], [address] eGFR Normal >60 [facility] Comment on above: Result Comment: Canc elled via OM: Order cancelled - Patient discharged Performed By: #### L 100.0100, L500.2500 ####[facility] [address] [place], [address] GAP Normal 5-15 [facility] Comment on above: Result Comment: Canc elled via OM: Order cancelled - Patient discharged Performed By: #### L 100.0100, L500.2500 ####[facility] [address] [place], [address] GLU Normal 70-99 [facility] Comment on above: Result Comment: Canc elled via OM: Order cancelled - Patient discharged Performed By: #### L 100.0100, L500.2500 ####[facility] [address] [place], [address] Potassium Normal 3.3-5.1 [facility] Comment on above: Result Comment: Canc elled via OM: Order cancelled - Patient discharged Performed By: #### L 100.0100, L500.2500 ####[facility] [address] [place], [address] Basic Metabolic Profile (BMP) Normal 133-145 [facility] Comment on above: Result Comment: Canc elled via OM: Order cancelled - Patient discharged Performed By: #### L 100.0100, L500.2500 ####[facility] [address] [place], [address] CBC W/Diff, Automatedon - Absolute Neut Normal 2.0-7.7 [facility] Comment on above: Result Comment: Canc elled via OM: Order cancelled - Patient discharged Performed By: #### L 100.0100, L500.2500 ####[facility] [address] [place], [address] HCT Normal 37-47 [facility] Comment on above: Result Comment: Canc elled via OM: Order cancelled - Patient discharged Performed By: #### L 100.0100, L500.2500 ####[facility] [address] [place], [address] HGB Normal 12.0-15.0 [facility] Comment on above: Result Comment: Canc elled via OM: Order cancelled - Patient discharged Performed By: #### L 100.0100, L500.2500 ####[facility] [address] [place], [address] MCH Normal 27.0-32.0 [facility] Comment on above: Result Comment: Canc elled via OM: Order cancelled - Patient discharged Performed By: #### L 100.0100, L500.2500 ####[facility] [address] [place], [address] MCHC Normal 32-36 [facility] Comment on above: Result Comment: Canc elled via OM: Order cancelled - Patient discharged Performed By: #### L 100.0100, L500.2500 ####[facility] [address] [place], [address] MCV Normal 81-99 [facility] Comment on above: Result Comment: Canc elled via OM: Order cancelled - Patient discharged Performed By: #### L 100.0100, L500.2500 ####[facility] [address] [place], [address] NEUT% Normal 47-70 [facility] Comment on above: Result Comment: Canc elled via OM: Order cancelled - Patient discharged Performed By: #### L 100.0100, L500.2500 ####[facility] [address] [place], [address] PLT Normal 150-450 [facility] Comment on above: Result Comment: Canc elled via OM: Order cancelled - Patient discharged Performed By: #### L 100.0100, L500.2500 ####[facility] [address] [place], [address] RBC Normal 4.2-5.4 [facility] Comment on above: Result Comment: Canc elled via OM: Order cancelled - Patient discharged Performed By: #### L 100.0100, L500.2500 ####[facility] [address] [place], [address] RDW CV Normal 11.6-14.6 [facility] Comment on above: Result Comment: Canc elled via OM: Order cancelled - Patient discharged Performed By: #### L 100.0100, L500.2500 ####[facility] [address] [facility] [address] RDW SD Normal 35.1-43.9 [facility] Comment on above: Result Comment: Canc elled via OM: Order cancelled - Patient discharged Performed By: #### L 100.0100, L500.2500 ####[facility] [address] [facility] [address] WBC Normal 4.4-11.0 [facility] Comment on above: Result Comment: Canc elled via OM: Order cancelled - Patient discharged Performed By: #### L 100.0100, L500.2500 ####[facility] [address] [place], [address] 36on 01-05-2025 36 S/p cath with minima l CAD. Plan CTA and TAVR. Pls advise to see dentist prior to valve intervention. Order placed for CTA and TAVR. Given req for BMP. mm Normal [facility] Anesthesia Noteon 01-05-2025 Anesthesia Note [...] proceed to administer sedation as planned. Normal [facility] Basic Metabolic Profile (BMP )on 01-05-2025 BUN Normal 4-19 [facility] Comment on above: Result Comment: Canc elled via OM: Order cancelled - Patient discharged Performed By: #### L 100.0100, L500.2500 ####[facility] [address] [place], [address] BUN/CRE Normal 10-20 [facility] Comment on above: Result Comment: Canc elled via OM: Order cancelled - Patient discharged Performed By: #### L 100.0100, L500.2500 ####[facility] [address] [place], [address] Calcium Normal 7.6-11.0 [facility] Comment on above: Result Comment: Canc elled via OM: Order cancelled - Patient discharged Performed By: #### L 100.0100, L500.2500 ####[facility] [address] [place], [address] CL Normal 98-108 [facility] Comment on above: Result Comment: Canc elled via OM: Order cancelled - Patient discharged Performed By: #### L 100.0100, L500.2500 ####[facility] [address] [place], [address] CO2 Normal 21.0-32.0 [facility] Comment on above: Result Comment: Canc elled via OM: Order cancelled - Patient discharged Performed By: #### L 100.0100, L500.2500 ####[facility] [address] [place], [address] CREAT,SERUM Normal 0.70-1.20 [facility] Comment on above: Result Comment: Canc elled via OM: Order cancelled - Patient discharged Performed By: #### L 100.0100, L500.2500 ####[facility] [address] [place], [address] eGFR Normal >60 [facility] Comment on above: Result Comment: Canc elled via OM: Order cancelled - Patient discharged Performed By: #### L 100.0100, L500.2500 ####[facility] [address] [place], [address] GAP Normal 5-15 [facility] Comment on above: Result Comment: Canc elled via OM: Order cancelled - Patient discharged Performed By: #### L 100.0100, L500.2500 ####[facility] [address] [place], [address] GLU Normal 70-99 [facility] Comment on above: Result Comment: Canc elled via OM: Order cancelled - Patient discharged Performed By: #### L 100.0100, L500.2500 ####[facility] [address] [place], [address] Potassium Normal 3.3-5.1 [facility] Comment on above: Result Comment: Canc elled via OM: Order cancelled - Patient discharged Performed By: #### L 100.0100, L500.2500 ####[facility] [address] [place], [address] Basic Metabolic Profile (BMP) Normal 133-145 [facility] Comment on above: Result Comment: Canc elled via OM: Order cancelled - Patient discharged Performed By: #### L 100.0100, L500.2500 ####[facility] [address] [place], [address] CBC W/Diff, Automatedon 09-1 Absolute Neut Normal 2.0-7.7 [facility] Comment on above: Result Comment: Canc elled via OM: Order cancelled - Patient discharged Performed By: #### L 100.0100, L500.2500 ####[facility] [address] [place], [address] HCT Normal 37-47 [facility] Comment on above: Result Comment: Canc elled via OM: Order cancelled - Patient discharged Performed By: #### L 100.0100, L500.2500 ####[facility] [address] [place], [address] HGB Normal 12.0-15.0 [facility] Comment on above: Result Comment: Canc elled via OM: Order cancelled - Patient discharged Performed By: #### L 100.0100, L500.2500 ####[facility] [address] [place], [address] MCH Normal 27.0-32.0 [facility] Comment on above: Result Comment: Canc elled via OM: Order cancelled - Patient discharged Performed By: #### L 100.0100, L500.2500 ####[facility] [address] [place], [address] MCHC Normal 32-36 [facility] Comment on above: Result Comment: Canc elled via OM: Order cancelled - Patient discharged Performed By: #### L 100.0100, L500.2500 ####[facility] [address] [place], [address] MCV Normal 81-99 [facility] Comment on above: Result Comment: Canc elled via OM: Order cancelled - Patient discharged Performed By: #### L 100.0100, L500.2500 ####[facility] [address] [place], [address] NEUT% Normal 47-70 [facility] Comment on above: Result Comment: Canc elled via OM: Order cancelled - Patient discharged Performed By: #### L 100.0100, L500.2500 ####[facility] [address] [place], [address] PLT Normal 150-450 [facility] Comment on above: Result Comment: Canc elled via OM: Order cancelled - Patient discharged Performed By: #### L 100.0100, L500.2500 ####[facility] [address] [place], [address] RBC Normal 4.2-5.4 [facility] Comment on above: Result Comment: Canc elled via OM: Order cancelled - Patient discharged Performed By: #### L 100.0100, L500.2500 ####[facility] [address] [place], [address] RDW CV Normal 11.6-14.6 [facility] Comment on above: Result Comment: Canc elled via OM: Order cancelled - Patient discharged Performed By: #### L 100.0100, L500.2500 ####[facility] [address] [place], [address] RDW SD Normal 35.1-43.9 [facility] Comment on above: Result Comment: Canc elled via OM: Order cancelled - Patient discharged Performed By: #### L 100.0100, L500.2500 ####[facility] [address] [place], [address] WBC Normal 4.4-11.0 [facility] Comment on above: Result Comment: Canc elled via OM: Order cancelled - Patient discharged Performed By: #### L 100.0100, L500.2500 ####[facility] [address] [place], [address] Basic Metabolic Profile (BMP )on 01-04-2025 BUN Normal 4-19 [facility] Comment on above: Result Comment: Canc elled via OM: Order cancelled - Patient discharged Performed By: #### L 100.0100, L500.2500 ####[facility] [address] [place], [address] BUN/CRE Normal 10-20 [facility] Comment on above: Result Comment: Canc elled via OM: Order cancelled - Patient discharged Performed By: #### L 100.0100, L500.2500 ####[facility] [address] [place], [address] Calcium Normal 7.6-11.0 [facility] Comment on above: Result Comment: Canc elled via OM: Order cancelled - Patient discharged Performed By: #### L 100.0100, L500.2500 ####[facility] [address] [place], [address] CL Normal 98-108 [facility] Comment on above: Result Comment: Canc elled via OM: Order cancelled - Patient discharged Performed By: #### L 100.0100, L500.2500 ####[facility] [address] [place], [address] CO2 Normal 21.0-32.0 [facility] Comment on above: Result Comment: Canc elled via OM: Order cancelled - Patient discharged Performed By: #### L 100.0100, L500.2500 ####[facility] [address] [place], [address] CREAT,SERUM Normal 0.70-1.20 [facility] Comment on above: Result Comment: Canc elled via OM: Order cancelled - Patient discharged Performed By: #### L 100.0100, L500.2500 ####[facility] [address] [place], [address] eGFR Normal >60 [facility] Comment on above: Result Comment: Canc elled via OM: Order cancelled - Patient discharged Performed By: #### L 100.0100, L500.2500 ####[facility] [address] [place], [address] GAP Normal 5-15 [facility] Comment on above: Result Comment: Canc elled via OM: Order cancelled - Patient discharged Performed By: #### L 100.0100, L500.2500 ####[facility] [address] [place], [address] GLU Normal 70-99 [facility] Comment on above: Result Comment: Canc elled via OM: Order cancelled - Patient discharged Performed By: #### L 100.0100, L500.2500 ####[facility] [address] [place], [address] Potassium Normal 3.3-5.1 [facility] Comment on above: Result Comment: Canc elled via OM: Order cancelled - Patient discharged Performed By: #### L 100.0100, L500.2500 ####[facility] [address] [place], [address] Basic Metabolic Profile (BMP) Normal 133-145 [facility] Comment on above: Result Comment: Canc elled via OM: Order cancelled - Patient discharged Performed By: #### L 100.0100, L500.2500 ####[facility] [address] [place], [address] CBC W/Diff, Automatedon - Absolute Neut Normal 2.0-7.7 [facility] Comment on above: Result Comment: Canc elled via OM: Order cancelled - Patient discharged Performed By: #### L 100.0100, L500.2500 ####[facility] [address] [place], [address] HCT Normal 37-47 [facility] Comment on above: Result Comment: Canc elled via OM: Order cancelled - Patient discharged Performed By: #### L 100.0100, L500.2500 ####[facility] [address] [place], [address] HGB Normal 12.0-15.0 [facility] Comment on above: Result Comment: Canc elled via OM: Order cancelled - Patient discharged Performed By: #### L 100.0100, L500.2500 ####[facility] [address] [place], [address] MCH Normal 27.0-32.0 [facility] Comment on above: Result Comment: Canc elled via OM: Order cancelled - Patient discharged Performed By: #### L 100.0100, L500.2500 ####[facility] [address] [place], [address] MCHC Normal 32-36 [facility] Comment on above: Result Comment: Canc elled via OM: Order cancelled - Patient discharged Performed By: #### L 100.0100, L500.2500 ####[facility] [address] [place], [address] MCV Normal 81-99 [facility] Comment on above: Result Comment: Canc elled via OM: Order cancelled - Patient discharged Performed By: #### L 100.0100, L500.2500 ####[facility] [address] [place], [address] NEUT% Normal 47-70 [facility] Comment on above: Result Comment: Canc elled via OM: Order cancelled - Patient discharged Performed By: #### L 100.0100, L500.2500 ####[facility] [address] [place], [address] PLT Normal 150-450 [facility] Comment on above: Result Comment: Canc elled via OM: Order cancelled - Patient discharged Performed By: #### L 100.0100, L500.2500 ####[facility] [address] [place], [address] RBC Normal 4.2-5.4 [facility] Comment on above: Result Comment: Canc elled via OM: Order cancelled - Patient discharged Performed By: #### L 100.0100, L500.2500 ####[facility] [address] [place], [address] RDW CV Normal 11.6-14.6 [facility] Comment on above: Result Comment: Canc elled via OM: Order cancelled - Patient discharged Performed By: #### L 100.0100, L500.2500 ####[facility] [address] [place], [address] RDW SD Normal 35.1-43.9 [facility] Comment on above: Result Comment: Canc elled via OM: Order cancelled - Patient discharged Performed By: #### L 100.0100, L500.2500 ####[facility] [address] [place], [address] WBC Normal 4.4-11.0 [facility] Comment on above: Result Comment: Canc elled via OM: Order cancelled - Patient discharged Performed By: #### L 100.0100, L500.2500 ####[facility] [address] [place], [address] 36on 01-03-2025 36 Approval not req per [facility] updated and requested on [employer] [facility] 36 PC to Fred SOOD RN regarding proceeding with heart cath on Wednesday. Verbalized understanding. [facility] 36 Spoke with patient, she is feeling okay after hospital admission and would like to keep heart cath on for 01/05. Will await insurance [place] [facility] Basic Metabolic Profile (BMP )on 01-03-2025 BUN Normal 4-19 [facility] Comment on above: Result Comment: Canc elled via OM: Order cancelled - Patient discharged Performed By: #### L 500.2500, L100.0100 ####[facility] [address] [place], [address] BUN/CRE Normal 10-20 [facility] Comment on above: Result Comment: Canc elled via OM: Order cancelled - Patient discharged Performed By: #### L 500.2500, L100.0100 ####[facility] [address] [place], [address] Calcium Normal 7.6-11.0 [facility] Comment on above: Result Comment: Canc elled via OM: Order cancelled - Patient discharged Performed By: #### L 500.2500, L100.0100 ####[facility] [address] [place], [address] CL Normal 98-108 [facility] Comment on above: Result Comment: Canc elled via OM: Order cancelled - Patient discharged Performed By: #### L 500.2500, L100.0100 ####[facility] [address] [place], [address] CO2 Normal 21.0-32.0 [facility] Comment on above: Result Comment: Canc elled via OM: Order cancelled - Patient discharged Performed By: #### L 500.2500, L100.0100 ####[facility] [address] [place], [address] CREAT,SERUM Normal 0.70-1.20 [facility] Comment on above: Result Comment: Canc elled via OM: Order cancelled - Patient discharged Performed By: #### L 500.2500, L100.0100 ####[facility] [address] [place], [address] eGFR Normal >60 [facility] Comment on above: Result Comment: Canc elled via OM: Order cancelled - Patient discharged Performed By: #### L 500.2500, L100.0100 ####[facility] [address] [place], [address] GAP Normal 5-15 [facility] Comment on above: Result Comment: Canc elled via OM: Order cancelled - Patient discharged Performed By: #### L 500.2500, L100.0100 ####[facility] [address] [place], [address] GLU Normal 70-99 [facility] Comment on above: Result Comment: Canc elled via OM: Order cancelled - Patient discharged Performed By: #### L 500.2500, L100.0100 ####[facility] [address] [place], [address] Potassium Normal 3.3-5.1 [facility] Comment on above: Result Comment: Canc elled via OM: Order cancelled - Patient discharged Performed By: #### L 500.2500, L100.0100 ####[facility] [address] [place], [address] Basic Metabolic Profile (BMP) Normal 133-145 [facility] Comment on above: Result Comment: Canc elled via OM: Order cancelled - Patient discharged Performed By: #### L 500.2500, L100.0100 ####[facility] [address] [place], [address] CBC W/Diff, Automatedon 09-1 0-2024 Absolute Neut Normal 2.0-7.7 [facility] Comment on above: Result Comment: Canc elled via OM: Order cancelled - Patient discharged Performed By: #### L 500.2500, L100.0100 ####[facility] [address] [place], [address] HCT Normal 37-47 [facility] Comment on above: Result Comment: Canc elled via OM: Order cancelled - Patient discharged Performed By: #### L 500.2500, L100.0100 ####[facility] [address] [place], [address] HGB Normal 12.0-15.0 [facility] Comment on above: Result Comment: Canc elled via OM: Order cancelled - Patient discharged Performed By: #### L 500.2500, L100.0100 ####[facility] [address] [place], [address] MCH Normal 27.0-32.0 [facility] Comment on above: Result Comment: Canc elled via OM: Order cancelled - Patient discharged Performed By: #### L 500.2500, L100.0100 ####[facility] [address] [place], [address] MCHC Normal 32-36 [facility] Comment on above: Result Comment: Canc elled via OM: Order cancelled - Patient discharged Performed By: #### L 500.2500, L100.0100 ####[facility] [address] [place], [address] MCV Normal 81-99 [facility] Comment on above: Result Comment: Canc elled via OM: Order cancelled - Patient discharged Performed By: #### L 500.2500, L100.0100 ####[facility] [address] [place], [address] NEUT% Normal 47-70 [facility] Comment on above: Result Comment: Canc elled via OM: Order cancelled - Patient discharged Performed By: #### L 500.2500, L100.0100 ####[facility] [address] [place], [address] PLT Normal 150-450 [facility] Comment on above: Result Comment: Canc elled via OM: Order cancelled - Patient discharged Performed By: #### L 500.2500, L100.0100 ####[facility] [address] [place], [address] RBC Normal 4.2-5.4 [facility] Comment on above: Result Comment: Canc elled via OM: Order cancelled - Patient discharged Performed By: #### L 500.2500, L100.0100 ####[facility] [address] [place], [address] RDW CV Normal 11.6-14.6 [facility] Comment on above: Result Comment: Canc elled via OM: Order cancelled - Patient discharged Performed By: #### L 500.2500, L100.0100 ####[facility] [address] [place], [address] RDW SD Normal 35.1-43.9 [facility] Comment on above: Result Comment: Canc elled via OM: Order cancelled - Patient discharged Performed By: #### L 500.2500, L100.0100 ####[facility] [address] [place], [place], [address] WBC Normal 4.4-11.0 [facility] Comment on above: Result Comment: Bety munroe via OM: Order cancelled - Patient discharged Performed By: #### L 500.2500, L100.0100 ####[facility] [address] [place], [address] [facility] DEN[facility]ON[facility]ALE[facility] ([id number]) 1955 F Date Time Provider Department 01/03/25 [facility] During your visit today, we recorded the following information about you: Judy Bliss RN 01/03/2025 8:35 AM Signed Breanna SW from [facility] HH calls and is asking for delay in care till next week. Breanna cannot see patient till next week. KAREN Werner Jesse, APRN.[facility] 01/03/2025 11:22 AM Signed Noted. Okay with delay in care. Nelson Robert APRN.[facility] Judy Bilss RN 01/03/2025 11:23 AM Signed Breanna notified of below. Voices understanding. Judy Bliss RN Allergies As of Date: 01/03/2025 (No Known Allergies) Date Reviewed: 11/22/2024 Reviewed by: Gregor Fernandez APRN.[employer] - Fully Assessed Reason for Visit: Delay [...] directed. Dx: COPD J44.9 - Nebulizer Accessories [facility] Mask and supplies as needed - PULSE OXIMETER [facility] Use as directed to check oxygen saturation level - ammonium lactate (AMLACTIN) 12 % lotion Apply 1 application to affected area as needed for Dry Skin. - losartan (COZAAR) 50 mg tablet Take 0.5 tablets by mouth once daily. - OXYGEN, HOME THERAPY, 2.5 L/min by Nasal Cannula route continuous. Use as directred - Disposable Gloves (DISPOSABLE LATEX-FREE GLOVES) [facility] 1 Box once [...] Back p (more content not included)... Normal [facility] Basic Metabolic Profile (BMP )on 01-02-2025 BUN Normal 4-19 [facility] Comment on above: Result Comment: Canc elled via OM: Order cancelled - Patient discharged Performed By: #### L 500.2500, L100.0100 ####[facility] [address] [place], [address] BUN/CRE Normal 10-20 [facility] Comment on above: Result Comment: Canc elled via OM: Order cancelled - Patient discharged Performed By: #### L 500.2500, L100.0100 ####[facility] [address] [place], [address] Calcium Normal 7.6-11.0 [facility] Comment on above: Result Comment: Canc elled via OM: Order cancelled - Patient discharged Performed By: #### L 500.2500, L100.0100 ####[facility] [address] [place], [address] CL Normal 98-108 [facility] Comment on above: Result Comment: Canc elled via OM: Order cancelled - Patient discharged Performed By: #### L 500.2500, L100.0100 ####[facility] [address] [place], [address] CO2 Normal 21.0-32.0 [facility] Comment on above: Result Comment: Canc elled via OM: Order cancelled - Patient discharged Performed By: #### L 500.2500, L100.0100 ####[facility] [address] [place], [address] CREAT,SERUM Normal 0.70-1.20 [facility] Comment on above: Result Comment: Canc elled via OM: Order cancelled - Patient discharged Performed By: #### L 500.2500, L100.0100 ####[facility] [address] [place], [address] eGFR Normal >60 [facility] Comment on above: Result Comment: Canc elled via OM: Order cancelled - Patient discharged Performed By: #### L 500.2500, L100.0100 ####[facility] [address] [place], [address] GAP Normal 5-15 [facility] Comment on above: Result Comment: Canc elled via OM: Order cancelled - Patient discharged Performed By: #### L 500.2500, L100.0100 ####[facility] [address] [place], [address] GLU Normal 70-99 [facility] Comment on above: Result Comment: Canc elled via OM: Order cancelled - Patient discharged Performed By: #### L 500.2500, L100.0100 ####[facility] [address] [place], [address] Potassium Normal 3.3-5.1 [facility] Comment on above: Result Comment: Canc elled via OM: Order cancelled - Patient discharged Performed By: #### L 500.2500, L100.0100 ####[facility] [address] [place], [address] Basic Metabolic Profile (BMP) Normal 133-145 [facility] Comment on above: Result Comment: Canc elled via OM: Order cancelled - Patient discharged Performed By: #### L 500.2500, L100.0100 ####[facility] [address] [place], [address] CBC W/Diff, Automatedon 09-0 Absolute Neut Normal 2.0-7.7 [facility] Comment on above: Result Comment: Canc elled via OM: Order cancelled - Patient discharged Performed By: #### L 500.2500, L100.0100 ####[facility] [address] [place], [address] HCT Normal 37-47 [facility] Comment on above: Result Comment: Canc elled via OM: Order cancelled - Patient discharged Performed By: #### L 500.2500, L100.0100 ####[facility] [address] [place], [address] HGB Normal 12.0-15.0 [facility] Comment on above: Result Comment: Canc elled via OM: Order cancelled - Patient discharged Performed By: #### L 500.2500, L100.0100 ####[facility] [address] [place], [address] MCH Normal 27.0-32.0 [facility] Comment on above: Result Comment: Canc elled via OM: Order cancelled - Patient discharged Performed By: #### L 500.2500, L100.0100 ####[facility] [address] [place], [address] MCHC Normal 32-36 [facility] Comment on above: Result Comment: Canc elled via OM: Order cancelled - Patient discharged Performed By: #### L 500.2500, L100.0100 ####[facility] [address] [place], [address] MCV Normal 81-99 [facility] Comment on above: Result Comment: Canc elled via OM: Order cancelled - Patient discharged Performed By: #### L 500.2500, L100.0100 ####[facility] [address] [place], [address] NEUT% Normal 47-70 [facility] Comment on above: Result Comment: Canc elled via OM: Order cancelled - Patient discharged Performed By: #### L 500.2500, L100.0100 ####[facility] [address] [place], [address] PLT Normal 150-450 [facility] Comment on above: Result Comment: Canc elled via OM: Order cancelled - Patient discharged Performed By: #### L 500.2500, L100.0100 ####[facility] [address] [place], [address] RBC Normal 4.2-5.4 [facility] Comment on above: Result Comment: Canc elled via OM: Order cancelled - Patient discharged Performed By: #### L 500.2500, L100.0100 ####[facility] [address] [place], [address] RDW CV Normal 11.6-14.6 [facility] Comment on above: Result Comment: Canc elled via OM: Order cancelled - Patient discharged Performed By: #### L 500.2500, L100.0100 ####[facility] [address] [place], [address] RDW SD Normal 35.1-43.9 [facility] Comment on above: Result Comment: Canc elled via OM: Order cancelled - Patient discharged Performed By: #### L 500.2500, L100.0100 ####[facility] [address] [place], [address] WBC Normal 4.4-11.0 [facility] Comment on above: Result Comment: Canc elled via OM: Order cancelled - Patient discharged Performed By: #### L 500.2500, L100.0100 ####[facility] [address] [place], [address] [facility] 01-02-2025 [place] Telephone (FAMPWS) DENIA GONZALEZ ([id number]) 1955 F Date Time Provider Department 01/02/25 YOSEPH FALL During your visit today, we recorded the following information about you: Brynn aWtson LPN 01/02/2025 3:30 PM Signed Rafa from [facility] Home Health calling patient was discharged from [facility] on 12/30. Patient refused OT. Skliied nursing plans 2 visits weekly for 2 weeks, then 1 visit weekly for 2 weeks. Would like to add needs Social Work verbal order, for her mood, anxiety, depression. Palliative care had seen her while she was in [facility], hope they continue to see her. Patient [...] directed. Dx: COPD J44.9 - Nebulizer Accessories [facility] Mask and supplies as needed - PULSE O[facility]IMETER [facility] Use as directed to check oxygen saturation level - ammonium lactate (AMLACTIN) 12 % lotion Apply 1 application to affected area as needed for Dry Skin. - losartan (COZAAR) 50 mg tablet Take 0.5 tablets by mouth once daily. - OXYGEN, HOME THERAPY, 2.5 L/min by Nasal Cannula route continuous. Use as directred - Disposable Gloves (DISPOSABLE LATEX-FREE GLOVES) [facility] 1 Box once every month. ICD 10: M15.9, J44.9, M54.40 - Incontinence Pad, Liner, Disp (POISE PADS) pads Use pads as directed. Dx: N39.46 - COMPOUNDED PRESCRIPTION BLOOD PRESSURE CUFF FOR HOME USE. DX: HYPERTENSION I10. AUTOMATIC CUFF. - COMPOUNDED PRESCRIPTION Blood press (more content not included)... Normal [facility] 36on 01-01-2025 36 Pending [facility] portal and records uploaded #[id number] Normal [facility] Basic Metabolic Profile (BMP )on 01-01-2025 BUN Normal 4-19 [facility] Comment on above: Result Comment: Canc elled via OM: Order cancelled - Patient discharged Performed By: #### L 500.2500, L100.0100 ####[facility] [address] [place], [address] BUN/CRE Normal 10-20 [facility] Comment on above: Result Comment: Canc elled via OM: Order cancelled - Patient discharged Performed By: #### L 500.2500, L100.0100 ####[facility] [address] [place], [address] Calcium Normal 7.6-11.0 [facility] Comment on above: Result Comment: Canc elled via OM: Order cancelled - Patient discharged Performed By: #### L 500.2500, L100.0100 ####[facility] [address] [place], [address] CL Normal 98-108 [facility] Comment on above: Result Comment: Canc elled via OM: Order cancelled - Patient discharged Performed By: #### L 500.2500, L100.0100 ####[facility] [address] [place], [address] CO2 Normal 21.0-32.0 [facility] Comment on above: Result Comment: Canc elled via OM: Order cancelled - Patient discharged Performed By: #### L 500.2500, L100.0100 ####[facility] [address], [address] CREAT,SERUM Normal 0.70-1.20 [facility] Comment on above: Result Comment: Canc elled via OM: Order cancelled - Patient discharged Performed By: #### L 500.2500, L100.0100 ####[facility] [address] [place], [address] eGFR Normal >60 [facility] Comment on above: Result Comment: Canc elled via OM: Order cancelled - Patient discharged Performed By: #### L 500.2500, L100.0100 ####[facility] [address] [place], [address] GAP Normal 5-15 [facility] Comment on above: Result Comment: Canc elled via OM: Order cancelled - Patient discharged Performed By: #### L 500.2500, L100.0100 ####[facility] [address] [place], [address] GLU Normal 70-99 [facility] Comment on above: Result Comment: Canc elled via OM: Order cancelled - Patient discharged Performed By: #### L 500.2500, L100.0100 ####[facility] [address] [place], [address] Potassium Normal 3.3-5.1 [facility] Comment on above: Result Comment: Canc elled via OM: Order cancelled - Patient discharged Performed By: #### L 500.2500, L100.0100 ####[facility] [address] [place], [address] Basic Metabolic Profile (BMP) Normal 133-145 [facility] Comment on above: Result Comment: Canc elled via OM: Order cancelled - Patient discharged Performed By: #### L 500.2500, L100.0100 ####[facility] [address] [place], [address] CBC W/Diff, Automatedon 09-0 8-2024 Absolute Neut Normal 2.0-7.7 [facility] Comment on above: Result Comment: Canc elled via OM: Order cancelled - Patient discharged Performed By: #### L 500.2500, L100.0100 ####[facility] [address] [place], [address] HCT Normal 37-47 [facility] Comment on above: Result Comment: Canc elled via OM: Order cancelled - Patient discharged Performed By: #### L 500.2500, L100.0100 ####[facility] [address] [place], [address] HGB Normal 12.0-15.0 [facility] Comment on above: Result Comment: Canc elled via OM: Order cancelled - Patient discharged Performed By: #### L 500.2500, L100.0100 ####[facility] [address] [place], [address] MCH Normal 27.0-32.0 [facility] Comment on above: Result Comment: Canc elled via OM: Order cancelled - Patient discharged Performed By: #### L 500.2500, L100.0100 ####[facility] [address] [place], [address] MCHC Normal 32-36 [facility] Comment on above: Result Comment: Canc elled via OM: Order cancelled - Patient discharged Performed By: #### L 500.2500, L100.0100 ####[facility] [address] [place], [address] MCV Normal 81-99 [facility] Comment on above: Result Comment: Canc elled via OM: Order cancelled - Patient discharged Performed By: #### L 500.2500, L100.0100 ####[facility] [address] [place], [address] NEUT% Normal 47-70 [facility] Comment on above: Result Comment: Canc elled via OM: Order cancelled - Patient discharged Performed By: #### L 500.2500, L100.0100 ####[facility] [address] [place], [address] PLT Normal 150-450 [facility] Comment on above: Result Comment: Canc elled via OM: Order cancelled - Patient discharged Performed By: #### L 500.2500, L100.0100 ####[facility] [address] [place], [address] RBC Normal 4.2-5.4 [facility] Comment on above: Result Comment: Canc elled via OM: Order cancelled - Patient discharged Performed By: #### L 500.2500, L100.0100 ####[facility] [address] [place], [address] RDW CV Normal 11.6-14.6 [facility] Comment on above: Result Comment: Canc elled via OM: Order cancelled - Patient discharged Performed By: #### L 500.2500, L100.0100 ####[facility] [address] [place], [address] RDW SD Normal 35.1-43.9 [facility] Comment on above: Result Comment: Canc elled via OM: Order cancelled - Patient discharged Performed By: #### L 500.2500, L100.0100 ####[facility] [address] [place], [address] WBC Normal 4.4-11.0 [facility] Comment on above: Result Comment: Canc elled via OM: Order cancelled - Patient discharged Performed By: #### L 500.2500, L100.0100 ####[facility] [address] [place], [address] Basic Metabolic Profile (BMP )on 12-31-2024 BUN Normal 4-19 [facility] Comment on above: Result Comment: Canc elled via OM: Order cancelled - Patient discharged Performed By: #### L 500.2500, L100.0100 ####[facility] [address] [place], [address] BUN/CRE Normal 10-20 [facility] Comment on above: Result Comment: Canc elled via OM: Order cancelled - Patient discharged Performed By: #### L 500.2500, L100.0100 ####[facility] [address] [place], [address] Calcium Normal 7.6-11.0 [facility] Comment on above: Result Comment: Canc elled via OM: Order cancelled - Patient discharged Performed By: #### L 500.2500, L100.0100 ####[facility] [address] [place], [address] CL Normal 98-108 [facility] Comment on above: Result Comment: Canc elled via OM: Order cancelled - Patient discharged Performed By: #### L 500.2500, L100.0100 ####[facility] [address] [place], [address] CO2 Normal 21.0-32.0 [facility] Comment on above: Result Comment: Canc elled via OM: Order cancelled - Patient discharged Performed By: #### L 500.2500, L100.0100 ####[facility] [address] [place], [address] CREAT,SERUM Normal 0.70-1.20 [facility] Comment on above: Result Comment: Canc elled via OM: Order cancelled - Patient discharged Performed By: #### L 500.2500, L100.0100 ####[facility] [address] [place], [address] eGFR Normal >60 [facility] Comment on above: Result Comment: Canc elled via OM: Order cancelled - Patient discharged Performed By: #### L 500.2500, L100.0100 ####[facility] [address] [place], [address] GAP Normal 5-15 [facility] Comment on above: Result Comment: Canc elled via OM: Order cancelled - Patient discharged Performed By: #### L 500.2500, L100.0100 ####[facility] [address] [place], [address] GLU Normal 70-99 [facility] Comment on above: Result Comment: Canc elled via OM: Order cancelled - Patient discharged Performed By: #### L 500.2500, L100.0100 ####[facility] [address] [place], [address] Potassium Normal 3.3-5.1 [facility] Comment on above: Result Comment: Canc elled via OM: Order cancelled - Patient discharged Performed By: #### L 500.2500, L100.0100 ####[facility] [address] [place], [address] Basic Metabolic Profile (BMP) Normal 133-145 [facility] Comment on above: Result Comment: Canc elled via OM: Order cancelled - Patient discharged Performed By: #### L 500.2500, L100.0100 ####[facility] [address] [place], [address] CBC W/Diff, Automatedon 09-0 Absolute Neut Normal 2.0-7.7 [facility] Comment on above: Result Comment: Canc elled via OM: Order cancelled - Patient discharged Performed By: #### L 500.2500, L100.0100 ####[facility] [address] [place], [address] HCT Normal 37-47 [facility] Comment on above: Result Comment: Canc elled via OM: Order cancelled - Patient discharged Performed By: #### L 500.2500, L100.0100 ####[facility] [address] [place], [address] HGB Normal 12.0-15.0 [facility] Comment on above: Result Comment: Canc elled via OM: Order cancelled - Patient discharged Performed By: #### L 500.2500, L100.0100 ####[facility] [address] [place], [address] MCH Normal 27.0-32.0 [facility] Comment on above: Result Comment: Canc elled via OM: Order cancelled - Patient discharged Performed By: #### L 500.2500, L100.0100 ####[facility] [address] [place], [address] MCHC Normal 32-36 [facility] Comment on above: Result Comment: Canc elled via OM: Order cancelled - Patient discharged Performed By: #### L 500.2500, L100.0100 ####[facility] [address] [place], [address] MCV Normal 81-99 [facility] Comment on above: Result Comment: Canc elled via OM: Order cancelled - Patient discharged Performed By: #### L 500.2500, L100.0100 ####[facility] [address] [place], [address] NEUT% Normal 47-70 [facility] Comment on above: Result Comment: Canc elled via OM: Order cancelled - Patient discharged Performed By: #### L 500.2500, L100.0100 ####[facility] [address] [place], [address] PLT Normal 150-450 [facility] Comment on above: Result Comment: Canc elled via OM: Order cancelled - Patient discharged Performed By: #### L 500.2500, L100.0100 ####[facility] [address] [place], [address] RBC Normal 4.2-5.4 [facility] Comment on above: Result Comment: Canc elled via OM: Order cancelled - Patient discharged Performed By: #### L 500.2500, L100.0100 ####[facility] [address] [place], [address] RDW CV Normal 11.6-14.6 [facility] Comment on above: Result Comment: Canc elled via OM: Order cancelled - Patient discharged Performed By: #### L 500.2500, L100.0100 ####[facility] [address] [place], [address] RDW SD Normal 35.1-43.9 [facility] Comment on above: Result Comment: Canc elled via OM: Order cancelled - Patient discharged Performed By: #### L 500.2500, L100.0100 ####[facility] [address] [place], [address] WBC Normal 4.4-11.0 [facility] Comment on above: Result Comment: Canc elled via OM: Order cancelled - Patient discharged Performed By: #### L 500.2500, L100.0100 ####[facility] [address] [place], [address] Absolute lymphocyte countOrd ered By: Lynnesheba Schafer on 12-30-2024 Lymphocytes Auto (Unsp spec) [#/Vol] 0.47 10*3/uL Low 0.83-4.51 [facility] Absolute neutrophil countOrd ered By: Lynne Schafer on 12-30-2024 Neutrophils (Bld) [#/Vol] 7.3 10*3/uL 2.0-7.7 [facility] Anion gap in Serum or Plasma Ordered By: Lynne Schafer on 12-30-2024 Anion gap [Moles/Vol] 9 mmol/L 5-15 [facility] Automated lymphocyte count a s percentage of total leukocytesOrdered By: Lynnesheba Schafer on 12-30-2024 Lymphocytes/100 WBC Auto (Unsp spec) 5.9 % Low 19-41 [facility] BUN/creatinine ratioOrdered By: Lynne Schafer on 12-30-2024 Urea nitrogen/Creatinine [Mass ratio] 31.0 mg/mg High 10-20 [facility] Basic Metabolic Profile (BMP )on 12-30-2024 BUN/CRE 31.0 RATIO High 10-20 [facility] Comment on above: Performed By: #### L 100.0100, L500.2500 ####[facility] [address] [place], [address] Calcium [Mass/Vol] 8.5 mg/dL Normal 7.6-11.0 [facility] Comment on above: Performed By: #### L 100.0100, L500.2500 ####[facility] [address] [place], [address] Chloride [Moles/Vol] 95 mmol/L Low 98-108 [facility] Comment on above: Performed By: #### L 100.0100, L500.2500 ####[facility] [address] [place], [address] CO2 [Moles/Vol] 37.3 mmol/L High 21.0-32.0 [facility] Comment on above: Performed By: #### L 100.0100, L500.2500 ####[facility] [address] [place], [address] Creatinine [Mass/Vol] 0.51 mg/dL Low 0.70-1.20 [facility] Comment on above: Performed By: #### L 100.0100, L500.2500 ####[facility] [address] [place], [address] ECRCL 65.36 ml/min Normal 50-250 [facility] Comment on above: Performed By: #### L 100.0100, L500.2500 ####[facility] [address] [place], [address] GAP 9 Normal 5-15 [facility] Comment on above: Performed By: #### L 100.0100, L500.2500 ####[facility] [address] [place], [address] GFR/1.73 sq M.predicted among non-blacks MDRD (S/P/Bld) [Vol rate/Area] 101 mL/min/{1.73_m2} Normal >60 [facility] Comment on above: Result Comment: mL/m in/1.73m2 CKD-EPI Creatinine Equation (2020) Performed By: #### L 100.0100, L500.2500 ####[facility] [address] [place], [address] Glucose [Mass/Vol] 124 mg/dL High 70-99 [facility] Comment on above: Performed By: #### L 100.0100, L500.2500 ####[facility] [address] [place], [address] Potassium [Moles/Vol] 4.7 mmol/L Normal 3.3-5.1 [facility] Comment on above: Performed By: #### L 100.0100, L500.2500 ####[facility] [address] [place], [address] Sodium [Moles/Vol] 141 mmol/L Normal 133-145 [facility] Comment on above: Performed By: #### L 100.0100, L500.2500 ####[facility] [address] [place], [address] Urea nitrogen [Mass/Vol] 16 mg/dL Normal 4-19 [facility] Comment on above: Performed By: #### L 100.0100, L500.2500 ####[facility] [address] [place], [address] Basophil percentageOrdered B y: Lynne Schafer on 12-30-2024 Basophils/100 WBC (Bld) 0.0 % 0-1 [facility] CBC W/Diff, Automatedon Absolute Lymph 0.47 X10 3/uL Low 0.83-4.51 [facility] Comment on above: Performed By: #### L 100.0100, L500.2500 ####[facility] [address] [place], [address] Absolute Neut 7.3 X10 3/uL Normal 2.0-7.7 [facility] Comment on above: Performed By: #### L 100.0100, L500.2500 ####[facility] [address] [place], [address] Basophils/100 WBC (Bld) 0.0 % Normal 0-1 [facility] Comment on above: Performed By: #### L 100.0100, L500.2500 ####[facility] [address] [place], [address] Eosinophils/100 WBC (Bld) 0.0 % Normal 0-5 [facility] Comment on above: Performed By: #### L 100.0100, L500.2500 ####[facility] [address] [place], [address] Erythrocyte distribution width (RBC) [Ratio] 13.7 % Normal 11.6-14.6 [facility] Comment on above: Performed By: #### L 100.0100, L500.2500 ####[facility] [address] [place], [address] Hematocrit (Bld) [Volume fraction] 28.6 % Low 37-47 [facility] Comment on above: Performed By: #### L 100.0100, L500.2500 ####[facility] [address] [place], [address] Hemoglobin (Bld) [Mass/Vol] 8.9 g/dL Low 12.0-15.0 [facility] Comment on above: Performed By: #### L 100.0100, L500.2500 ####[facility] [address] [place], [address] IG% 0.600 Normal 0.0-0.9 [facility] Comment on above: Result Comment: IG% - Immature Granulocytes (promyelocytes, myelocytes andmetamyelocytes) > 1% indicates that a LEFT SHIFT is Present. Performed By: #### L 100.0100, L500.2500 ####[facility] [address] [place], [address] Lymphocytes/100 WBC (Bld) 5.9 % Low 19-41 [facility] Comment on above: Performed By: #### L 100.0100, L500.2500 ####[facility] [address] [place], [address] MCH (RBC) [Entitic mass] 26.3 pg Low 27.0-32.0 [facility] Comment on above: Performed By: #### L 100.0100, L500.2500 ####[facility] [address] [place], [address] MCHC (RBC) [Mass/Vol] 31.1 g/dL Low 32-36 [facility] Comment on above: Performed By: #### L 100.0100, L500.2500 ####[facility] [address] [place], [address] MCV (RBC) [Entitic vol] 84.6 fL Normal 81-99 [facility] Comment on above: Performed By: #### L 100.0100, L500.2500 ####[facility] [address] [place], [address] Monocytes/100 WBC (Bld) 2.5 % Normal 0-10 [facility] Comment on above: Performed By: #### L 100.0100, L500.2500 ####[facility] [address] [place], [address] Neutrophils/100 WBC (Bld) 91.0 % High 47-70 [facility] Comment on above: Performed By: #### L 100.0100, L500.2500 ####[facility] [address] [place], [address] Nucleated RBC (Bld) [#/Vol] 0 10*3/uL Normal 0-5 [facility] Comment on above: Performed By: #### L 100.0100, L500.2500 ####[facility] [address] [place], [address] Platelet mean volume (Bld) [Entitic vol] 9.7 fL Normal 6.2-12.0 [facility] Comment on above: Performed By: #### L 100.0100, L500.2500 ####[facility] [address] [place], [address] Platelets (Bld) [#/Vol] 212 10*3/uL Normal 150-450 [facility] Comment on above: Performed By: #### L 100.0100, L500.2500 ####[facility] [address] [place], [address] RBC (Bld) [#/Vol] 3.38 10*6/uL Low 4.2-5.4 [facility] Comment on above: Performed By: #### L 100.0100, L500.2500 ####[facility] [address] [place], [address] RDW SD 42.5 fl Normal 35.1-43.9 [facility] Comment on above: Performed By: #### L 100.0100, L500.2500 ####[facility] [address] [place], [address] WBC (Bld) [#/Vol] 8.0 10*3/uL Normal 4.4-11.0 [facility] Comment on above: Performed By: #### L 100.0100, L500.2500 ####[facility] [address] [place], [address] Carbon dioxide, total [Moles /volume] in Central venous bloodOrdered By: Lynne Schafer on 12-30-2024 CO2 [Moles/Vol] 37.3 mmol/L High 21.0-32.0 [facility] Chloride assayOrdered By: Na na Gilmar on 12-30-2024 Chloride [Moles/Vol] 95 mmol/L Low 98-108 [facility] Discharge Instructionon 09-0 Discharge Instruction Normal [facility] Eosinophil percentageOrdered By: Lynne Schafer on 12-30-2024 Eosinophils/100 WBC (Bld) 0.0 % 0-5 [facility] Erythrocyte distribution wid th ratioOrdered By: Lynne Schafer on 12-30-2024 Erythrocyte distribution width (RBC) [Ratio] 13.7 % 11.6-14.6 [facility] Erythrocyte distribution wid th standard deviationOrdered By: Lynne Schafer on 12-30-2024 Erythrocyte distribution width (RBC) [Ratio] 42.5 fl 35.1-43.9 [facility] Glomerular filtration rate ( GFR) estimation/1.73 sq m using serum, plasma, or whole bOrdered By: Lynne Schafer on 12-30-2024 GFR/1.73 sq M.predicted among non-blacks MDRD (S/P/Bld) [Vol rate/Area] 101 mL/min/{1.73_m2} >60 [facility] Comment on above: mL/min/1.73m2 CKD-EP I Creatinine Equation (2020) Hematocrit Auto (Bld) [Volum e fraction]Ordered By: Lynne Schafer on 12-30-2024 Hematocrit (Bld) [Volume fraction] 28.6 % Low 37-47 [facility] Hemoglobin measurementOrdere d By: Lynne Schafer on 12-30-2024 Hemoglobin (Bld) [Mass/Vol] 8.9 g/dL Low 12.0-15.0 [facility] Immature granulocytes/100 WB C Auto (Bld)Ordered By: Lynne Schafer on 12-30-2024 Immature granulocytes/100 WBC (Bld) 0.600 % 0.0-0.9 [facility] Comment on above: IG% - Immature Granu locytes (promyelocytes, myelocytes and metamyelocytes) > 1% indicates that a LEFT SHIFT is Present. MCV (mean corpuscular volume ) determinationOrdered By: Lynne Schafer on 12-30-2024 MCV (RBC) [Entitic vol] 84.6 fL 81-99 [facility] Mean corpuscular hemoglobin (MCH) determinationOrdered By: Lynne Schafer on 12-30-2024 MCH (RBC) [Entitic mass] 26.3 pg Low 27.0-32.0 [facility] Mean corpuscular hemoglobin concentration (MCHC) determinationOrdered By: Lynne Schafer on 12-30-2024 MCHC (RBC) [Mass/Vol] 31.1 g/dL Low 32-36 [facility] Mean platelet volume determi nationOrdered By: Lynne Schafer on 12-30-2024 Platelet mean volume (Bld) [Entitic vol] 9.7 fL 6.2-12.0 [facility] Monocyte percentageOrdered B y: Lynne Schafer on 12-30-2024 Monocytes/100 WBC (Bld) 2.5 % 0-10 [facility] Neutrophil percentageOrdered By: Lynne Schafer on 12-30-2024 Neutrophils/100 WBC (Bld) 91.0 % High 47-70 [facility] Nucleated red blood cell per centageOrdered By: Lynne Schafer on 12-30-2024 Nucleated RBC/100 WBC (Bld) [Ratio] 0 % 0-5 [facility] Platelet countOrdered By: Belkys Schafer on 12-30-2024 Platelets (Bld) [#/Vol] 212 10*3/uL 150-450 [facility] Potassium measurement (mass/ volume)Ordered By: Lynne Schafer on 12-30-2024 Potassium (Unsp spec) [Mass/Vol] 4.7 mmol/L 3.3-5.1 [facility] RBC Auto (Bld) [#/Vol]Ordere d By: Lynne Schafer on 12-30-2024 RBC (Bld) [#/Vol] 3.38 10*6/uL Low 4.2-5.4 [facility] Serum creatinine measurement (mass/volume)Ordered By: Lynne Schafer on 12-30-2024 Creatinine [Mass/Vol] 0.51 mg/dL Low 0.70-1.20 [facility] Serum glucose measurement (m ass/volume)Ordered By: Lynne Schafer on 12-30-2024 Glucose [Mass/Vol] 124 mg/dL High 70-99 [facility] Serum or plasma calcium kadi urement (mass/volume)Ordered By: Lynne Schafer on 12-30-2024 Calcium [Mass/Vol] 8.5 mg/dL 7.6-11.0 [facility] Serum or plasma urea nitroge n measurement (mass/volume)Ordered By: Lynne Schafer on 12-30-2024 Urea nitrogen [Mass/Vol] 16 mg/dL 4-19 [facility] Sodium levelOrdered By: Lynne Schafer on 12-30-2024 Sodium [Moles/Vol] 141 mmol/L 133-145 [facility] White blood cell (WBC) count Ordered By: Lynne Schafer on 12-30-2024 WBC (Bld) [#/Vol] 8.0 10*3/uL 4.4-11.0 [facility] Basic Metabolic Profile (BMP )on 12-29-2024 BUN/CRE 37.4 RATIO High 10-20 [facility] Comment on above: Performed By: #### L 500.2500, L100.0100 ####[facility] [address] [place], [address] Calcium [Mass/Vol] 8.7 mg/dL Normal 7.6-11.0 [facility] Comment on above: Performed By: #### L 500.2500, L100.0100 ####[facility] [address] [place], [address] Chloride [Moles/Vol] 94 mmol/L Low 98-108 [facility] Comment on above: Performed By: #### L 500.2500, L100.0100 ####[facility] [address] [place], [address] CO2 [Moles/Vol] 38.0 mmol/L High 21.0-32.0 [facility] Comment on above: Performed By: #### L 500.2500, L100.0100 ####[facility] [address] [place], [address] Creatinine [Mass/Vol] 0.55 mg/dL Low 0.70-1.20 [facility] Comment on above: Performed By: #### L 500.2500, L100.0100 ####[facility] [address] [place], [address] ECRCL 65.36 ml/min Normal 50-250 [facility] Comment on above: Performed By: #### L 500.2500, L100.0100 ####[facility] [address] [place], [address] GAP 8 Normal 5-15 [facility] Comment on above: Performed By: #### L 500.2500, L100.0100 ####[facility] [address] [place], [address] GFR/1.73 sq M.predicted among non-blacks MDRD (S/P/Bld) [Vol rate/Area] 99 mL/min/{1.73_m2} Normal >60 [facility] Comment on above: Result Comment: mL/m in/1.73m2 CKD-EPI Creatinine Equation (2020) Performed By: #### L 500.2500, L100.0100 ####[facility] [address] [place], [address] Glucose [Mass/Vol] 97 mg/dL Normal 70-99 [facility] Comment on above: Performed By: #### L 500.2500, L100.0100 ####[facility] [address] [place], [address] Potassium [Moles/Vol] 4.4 mmol/L Normal 3.3-5.1 [facility] Comment on above: Performed By: #### L 500.2500, L100.0100 ####[facility] [address], [address] Sodium [Moles/Vol] 140 mmol/L Normal 133-145 [facility] Comment on above: Performed By: #### L 500.2500, L100.0100 ####[facility] [address] [place], [address] Urea nitrogen [Mass/Vol] 21 mg/dL High 4-19 [facility] Comment on above: Performed By: #### L 500.2500, L100.0100 ####[facility] [address] [place], [address] CBC W/Diff, Automatedon 09-0 -2024 Absolute Lymph 0.49 X10 3/uL Low 0.83-4.51 [facility] Comment on above: Performed By: #### L 500.2500, L100.0100 ####[facility] [address] [place], [address] Absolute Neut 6.8 X10 3/uL Normal 2.0-7.7 [facility] Comment on above: Performed By: #### L 500.2500, L100.0100 ####[facility] [address] [place], [address] Basophils/100 WBC (Bld) 0.1 % Normal 0-1 [facility] Comment on above: Performed By: #### L 500.2500, L100.0100 ####[facility] [address] [place], [address] Eosinophils/100 WBC (Bld) 0.0 % Normal 0-5 [facility] Comment on above: Performed By: #### L 500.2500, L100.0100 ####[facility] [address] [place], [address] Erythrocyte distribution width (RBC) [Ratio] 14.0 % Normal 11.6-14.6 [facility] Comment on above: Performed By: #### L 500.2500, L100.0100 ####[facility] [address] [place], [address] Hematocrit (Bld) [Volume fraction] 26.6 % Low 37-47 [facility] Comment on above: Performed By: #### L 500.2500, L100.0100 ####[facility] [address] [place], [address] Hemoglobin (Bld) [Mass/Vol] 8.4 g/dL Low 12.0-15.0 [facility] Comment on above: Performed By: #### L 500.2500, L100.0100 ####[facility] [address] [place], [address] IG% 0.700 Normal 0.0-0.9 [facility] Comment on above: Result Comment: IG% - Immature Granulocytes (promyelocytes, myelocytes andmetamyelocytes) > 1% indicates that a LEFT SHIFT is Present. Performed By: #### L 500.2500, L100.0100 ####[facility] [address] [place], [address] Lymphocytes/100 WBC (Bld) 6.5 % Low 19-41 [facility] Comment on above: Performed By: #### L 500.2500, L100.0100 ####[facility] [address] [place], [address] MCH (RBC) [Entitic mass] 26.7 pg Low 27.0-32.0 [facility] Comment on above: Performed By: #### L 500.2500, L100.0100 ####[facility] [address] [place], [address] MCHC (RBC) [Mass/Vol] 31.6 g/dL Low 32-36 [facility] Comment on above: Performed By: #### L 500.2500, L100.0100 ####[facility] [address] [place], [address] MCV (RBC) [Entitic vol] 84.4 fL Normal 81-99 [facility] Comment on above: Performed By: #### L 500.2500, L100.0100 ####[facility] [address] [place], [address] Monocytes/100 WBC (Bld) 2.8 % Normal 0-10 [facility] Comment on above: Performed By: #### L 500.2500, L100.0100 ####[facility] [address] [place], [address] Neutrophils/100 WBC (Bld) 89.9 % High 47-70 [facility] Comment on above: Performed By: #### L 500.2500, L100.0100 ####[facility] [address] [place], [address] Nucleated RBC (Bld) [#/Vol] 0 10*3/uL Normal 0-5 [facility] Comment on above: Performed By: #### L 500.2500, L100.0100 ####[facility] [address] [place], [address] Platelet mean volume (Bld) [Entitic vol] 9.3 fL Normal 6.2-12.0 [facility] Comment on above: Performed By: #### L 500.2500, L100.0100 ####[facility] [address] [place], [address] Platelets (Bld) [#/Vol] 169 10*3/uL Normal 150-450 [facility] Comment on above: Performed By: #### L 500.2500, L100.0100 ####[facility] [address] [place], [address] RBC (Bld) [#/Vol] 3.15 10*6/uL Low 4.2-5.4 [facility] Comment on above: Performed By: #### L 500.2500, L100.0100 ####[facility] [address] [place], [address] RDW SD 43.0 fl Normal 35.1-43.9 [facility] Comment on above: Performed By: #### L 500.2500, L100.0100 ####[facility] [address] [place], [address] WBC (Bld) [#/Vol] 7.6 10*3/uL Normal 4.4-11.0 [facility] Comment on above: Performed By: #### L 500.2500, L100.0100 ####[facility] [address] [place], [address] 12 Lead EKGon 12-28-2024 12 Lead EKG Normal [facility] Basic Metabolic Profile (BMP )on 12-28-2024 BUN/CRE 39.3 RATIO High 10-20 [facility] Comment on above: Performed By: #### L 100.0100, L500.2500 ####[facility] [address] [place], [address] Calcium [Mass/Vol] 9.1 mg/dL Normal 7.6-11.0 [facility] Comment on above: Performed By: #### L 100.0100, L500.2500 ####[facility] [address] [place], [address] Chloride [Moles/Vol] 93 mmol/L Low 98-108 [facility] Comment on above: Performed By: #### L 100.0100, L500.2500 ####[facility] [address] [place], [address] CO2 [Moles/Vol] 37.2 mmol/L High 21.0-32.0 [facility] Comment on above: Performed By: #### L 100.0100, L500.2500 ####[facility] [address] [place], [address] Creatinine [Mass/Vol] 0.59 mg/dL Low 0.70-1.20 [facility] Comment on above: Performed By: #### L 100.0100, L500.2500 ####[facility] [address] [place], [address] ECRCL 64.18 ml/min Normal 50-250 [facility] Comment on above: Performed By: #### L 100.0100, L500.2500 ####[facility] [address] [place], [address] GAP 9 Normal 5-15 [facility] Comment on above: Performed By: #### L 100.0100, L500.2500 ####[facility] [address] [place], [address] GFR/1.73 sq M.predicted among non-blacks MDRD (S/P/Bld) [Vol rate/Area] 97 mL/min/{1.73_m2} Normal >60 [facility] Comment on above: Result Comment: mL/m in/1.73m2 CKD-EPI Creatinine Equation (2020) Performed By: #### L 100.0100, L500.2500 ####[facility] [address] [place], [address] Glucose [Mass/Vol] 132 mg/dL High 70-99 [facility] Comment on above: Performed By: #### L 100.0100, L500.2500 ####[facility] [address] [place], [address] Potassium [Moles/Vol] 4.6 mmol/L Normal 3.3-5.1 [facility] Comment on above: Performed By: #### L 100.0100, L500.2500 ####[facility] [address] [place], [address] Sodium [Moles/Vol] 139 mmol/L Normal 133-145 [facility] Comment on above: Performed By: #### L 100.0100, L500.2500 ####[facility] [address] [place] [place], [address] Urea nitrogen [Mass/Vol] 23 mg/dL High 4-19 [facility] Comment on above: Performed By: #### L 100.0100, L500.2500 ####[facility] [address] [place], [address] CBC W/Diff, Automatedon 09-0 -2024 Absolute Lymph 0.58 X10 3/uL Low 0.83-4.51 [facility] Comment on above: Performed By: #### L 100.0100, L500.2500 ####[facility] [address] [place], [address] Absolute Neut 9.6 X10 3/uL High 2.0-7.7 [facility] Comment on above: Performed By: #### L 100.0100, L500.2500 ####[facility] [address] [place], [address] Basophils/100 WBC (Bld) 0.1 % Normal 0-1 [facility] Comment on above: Performed By: #### L 100.0100, L500.2500 ####[facility] [address] [place], [address] Eosinophils/100 WBC (Bld) 0.0 % Normal 0-5 [facility] Comment on above: Performed By: #### L 100.0100, L500.2500 ####[facility] [address] [place], [address] Erythrocyte distribution width (RBC) [Ratio] 13.8 % Normal 11.6-14.6 [facility] Comment on above: Performed By: #### L 100.0100, L500.2500 ####[facility] [address] [place], [address] Hematocrit (Bld) [Volume fraction] 26.4 % Low 37-47 [facility] Comment on above: Performed By: #### L 100.0100, L500.2500 ####[facility] [address] [place], [address] Hemoglobin (Bld) [Mass/Vol] 8.5 g/dL Low 12.0-15.0 [facility] Comment on above: Performed By: #### L 100.0100, L500.2500 ####[facility] [address] [place], [address] IG% 0.800 Normal 0.0-0.9 [facility] Comment on above: Result Comment: IG% - Immature Granulocytes (promyelocytes, myelocytes andmetamyelocytes) > 1% indicates that a LEFT SHIFT is Present. Performed By: #### L 100.0100, L500.2500 ####[facility] [address] [place], [address] Lymphocytes/100 WBC (Bld) 5.5 % Low 19-41 [facility] Comment on above: Performed By: #### L 100.0100, L500.2500 ####[facility] [address] [place], [address] MCH (RBC) [Entitic mass] 27.1 pg Normal 27.0-32.0 [facility] Comment on above: Performed By: #### L 100.0100, L500.2500 ####[facility] [address] [place], [address] MCHC (RBC) [Mass/Vol] 32.2 g/dL Normal 32-36 [facility] Comment on above: Performed By: #### L 100.0100, L500.2500 ####[facility] [address] [place], [address] MCV (RBC) [Entitic vol] 84.1 fL Normal 81-99 [facility] Comment on above: Performed By: #### L 100.0100, L500.2500 ####[facility] [address] [place], [address] Monocytes/100 WBC (Bld) 3.0 % Normal 0-10 [facility] Comment on above: Performed By: #### L 100.0100, L500.2500 ####[facility] [address] [place], [address] Neutrophils/100 WBC (Bld) 90.6 % High 47-70 [facility] Comment on above: Performed By: #### L 100.0100, L500.2500 ####[facility] [address] [place], [address] Nucleated RBC (Bld) [#/Vol] 0 10*3/uL Normal 0-5 [facility] Comment on above: Performed By: #### L 100.0100, L500.2500 ####[facility] [address] [place], [address] Platelet mean volume (Bld) [Entitic vol] 9.4 fL Normal 6.2-12.0 [facility] Comment on above: Performed By: #### L 100.0100, L500.2500 ####[facility] [address] [place], [address] Platelets (Bld) [#/Vol] 203 10*3/uL Normal 150-450 [facility] Comment on above: Performed By: #### L 100.0100, L500.2500 ####[facility] [address] [place], [address] RBC (Bld) [#/Vol] 3.14 10*6/uL Low 4.2-5.4 [facility] Comment on above: Performed By: #### L 100.0100, L500.2500 ####[facility] [address] [place], [address] RDW SD 42.5 fl Normal 35.1-43.9 [facility] Comment on above: Performed By: #### L 100.0100, L500.2500 ####[facility] [address] [place], [address] WBC (Bld) [#/Vol] 10.6 10*3/uL Normal 4.4-11.0 [facility] Comment on above: Performed By: #### L 100.0100, L500.2500 ####[facility] [address] [place], [address] EGD Reporton 12-28-2024 EGD Report Normal [facility] MR/CON.PCM.GIon 12-28-2024 MR/CON.PCM.GI Normal [facility] MR/OP.PROVATon 12-28-2024 MR/OP.PROVAT Normal [facility] MR/POSTOP.ANEon 12-28-2024 MR/POSTOP.ANE Normal [facility] MR/HPTWKCKL7bo 12-28-2024 MR/POSTOPAN2 Normal [facility] Absolute lymphocyte countOrd ered By: Dionne Charlotte on 12-27-2024 Lymphocytes Auto (Unsp spec) [#/Vol] 0.44 10*3/uL Low 0.83-4.51 [facility] Absolute neutrophil countOrd ered By: on 12-27-2024 Neutrophils (Bld) [#/Vol] 4.8 10*3/uL 2.0-7.7 [facility] Anion gap in Serum or Plasma Ordered By: [place] on 12-27-2024 Anion gap [Moles/Vol] 9 mmol/L 5-15 [facility] Automated lymphocyte count a s percentage of total leukocytesOrdered By: on 12-27-2024 Lymphocytes/100 WBC Auto (Unsp spec) 8.1 % Low 19-41 [facility] BUN/creatinine ratioOrdered By: on 12-27-2024 Urea nitrogen/Creatinine [Mass ratio] 29.6 mg/mg High 10-20 [facility] Basophil percentageOrdered B y: on 12-27-2024 Basophils/100 WBC (Bld) 0.2 % 0-1 [facility] Bilirubin, totalOrdered By: [place] on 12-27-2024 Bilirubin [Mass/Vol] 0.31 mg/dL 0.00-1.30 [facility] CBC W/Diff, Automatedon Absolute Lymph 0.44 X10 3/uL Low 0.83-4.51 [facility] Comment on above: Performed By: #### L 100.0100, L500.4050 ####[facility] [address] [place], [place], [id number] Absolute Neut 4.8 X10 3/uL Normal 2.0-7.7 [facility] Comment on above: Performed By: #### L 100.0100, L500.4050 ####[facility] [address] [place], [address] Basophils/100 WBC (Bld) 0.2 % Normal 0-1 [facility] Comment on above: Performed By: #### L 100.0100, L500.4050 ####[facility] [address] [place], [address] Eosinophils/100 WBC (Bld) 0.0 % Normal 0-5 [facility] Comment on above: Performed By: #### L 100.0100, L500.4050 ####[facility] [address] [place], [address] Erythrocyte distribution width (RBC) [Ratio] 14.2 % Normal 11.6-14.6 [facility] Comment on above: Performed By: #### L 100.0100, L500.4050 ####[facility] [address] [place], [address] Hematocrit (Bld) [Volume fraction] 26.3 % Low 37-47 [facility] Comment on above: Performed By: #### L 100.0100, L500.4050 ####[facility] [address] [place], [address] Hemoglobin (Bld) [Mass/Vol] 8.5 g/dL Low 12.0-15.0 [facility] Comment on above: Performed By: #### L 100.0100, L500.4050 ####[facility] [address] [place], [address] IG% 1.300 High 0.0-0.9 [facility] Comment on above: Result Comment: IG% - Immature Granulocytes (promyelocytes, myelocytes andmetamyelocytes) > 1% indicates that a LEFT SHIFT is Present. Performed By: #### L 100.0100, L500.4050 ####[facility] [address] [place], [address] Lymphocytes/100 WBC (Bld) 8.1 % Low 19-41 [facility] Comment on above: Performed By: #### L 100.0100, L500.4050 ####[facility] [address] [place], [address] MCH (RBC) [Entitic mass] 27.1 pg Normal 27.0-32.0 [facility] Comment on above: Performed By: #### L 100.0100, L500.4050 ####[facility] [address] [place], [address] MCHC (RBC) [Mass/Vol] 32.3 g/dL Normal 32-36 [facility] Comment on above: Performed By: #### L 100.0100, L500.4050 ####[facility] [address] [place], [address] MCV (RBC) [Entitic vol] 83.8 fL Normal 81-99 [facility] Comment on above: Performed By: #### L 100.0100, L500.4050 ####[facility] [address] [place], [address] Monocytes/100 WBC (Bld) 1.7 % Normal 0-10 [facility] Comment on above: Performed By: #### L 100.0100, L500.4050 ####[facility] [address] [place], [address] Neutrophils/100 WBC (Bld) 88.7 % High 47-70 [facility] Comment on above: Performed By: #### L 100.0100, L500.4050 ####[facility] [address] [place], [address] Nucleated RBC (Bld) [#/Vol] 0 10*3/uL Normal 0-5 [facility] Comment on above: Performed By: #### L 100.0100, L500.4050 ####[facility] [address] [place], [address] Platelet mean volume (Bld) [Entitic vol] 10.0 fL Normal 6.2-12.0 [facility] Comment on above: Performed By: #### L 100.0100, L500.4050 ####[facility] [address] [place], [address] Platelets (Bld) [#/Vol] 188 10*3/uL Normal 150-450 [facility] Comment on above: Performed By: #### L 100.0100, L500.4050 ####[facility] [address] [place], [address] RBC (Bld) [#/Vol] 3.14 10*6/uL Low 4.2-5.4 [facility] Comment on above: Performed By: #### L 100.0100, L500.4050 ####[facility] [address] [place], [address] RDW SD 42.8 fl Normal 35.1-43.9 [facility] Comment on above: Performed By: #### L 100.0100, L500.4050 ####[facility] [address] [place], [address] WBC (Bld) [#/Vol] 5.4 10*3/uL Normal 4.4-11.0 [facility] Comment on above: Performed By: #### L 100.0100, L500.4050 ####[facility] [address] [place], [address] CNPDaylin 12-27-2024 CNPN Telephone ([facility] DENIA GONZALEZ ([id number]) 1955 F Date Time Provider Department 12/27/24 YOSEPH FALL During your visit today, we recorded the following information about you: Sukhi Marrero RN 12/27/2024 2:48 PM Signed Palma Anguiano with [facility] calls to let provider know that patient was admitted to [facility] last evening for COPD exacerbation. Admission notes available within [facility]. KAREN Barney Jesse, APRN.CNP 01/01/2025 8:58 [...] directed. Dx: COPD J44.9 - Nebulizer [facility] and supplies as needed - PULSE OXIMETER [facility] Use as directed to check oxygen [...] 07/15/2021 Cholelithiasis (more content not included)... Normal [facility] Carbon dioxide, total [Moles /volume] in Central venous bloodOrdered By: Dionne Porter on 12-27-2024 CO2 [Moles/Vol] 39.4 mmol/L High 21.0-32.0 [facility] Chloride assayOrdered By: Lidya Porter on 12-27-2024 Chloride [Moles/Vol] 92 mmol/L Low 98-108 [facility] Comprehensive Metabolic Prof deni 12-27-2024 Potassium [Moles/Vol] 3.0 mmol/L Low 3.3-5.1 [facility] Comment on above: Result Comment: Hemo lysis present, Results??could be affected.?? AMENDED REPORT 12/27/24834 K previously reported as: 4.2 mmol/LHemolysis present, Results??could be affected.?? Performed By: #### L 100.0100, L500.4050 ####[facility] [address] [place], [address] Electrocardiogram reportOrde red By: Junito Madrid on 12-27-2024 EKG study [facility] [address] [place] [address] 12 Lead EKG 12/26/24 1403 MR#: [id number] Acct: [id number] Name: DENIA GONZALEZ Rep #:[id number] : 1955 69 From: Junito contreras MD Attending Dr: Dr. Lynne Schafer MD Status: ADM IN Ordering Dr: Marcel Zarate MD Date: 12/26/24 Location: [facility] Sex: F C Admitted: 12/26/24 Test Reason : ANXIETY Blood Pressure : */* mmHG Vent. Rate : 99 BPM Atrial Rate : 99 BPM P-R Int : 166 ms QRS Dur : 76 ms QT Int : 356 ms P-R-T Axes : 80 44 77 degrees QTcB Int : 456 ms Normal sinus rhythm Right atrial enlargement Borderline ECG Confirmed by Junito Madrid ([id number]), supervising editor trailer LEORA RESTREPO ([id number]) on 12/27/2024 8:19:45 AM Referred By: ER/AK Confirmed By: Junito Madrid 12/27/24 0819 Date _ Junito Madrid MD CC: Dr. Marcel Zarate MD; Dr. Yoseph aFll MD; Dr. Lynne Schafer MD ~ Signed [facility] Work Phone: Eosinophil percentageOrdered By: Dionne Porter on 12-27-2024 Eosinophils/100 WBC (Bld) 0.0 % 0-5 [facility] Erythrocyte distribution wid th ratioOrdered By: Dionne White on 12-27-2024 Erythrocyte distribution width (RBC) [Ratio] 14.2 % 11.6-14.6 [facility] Erythrocyte distribution wid th standard deviationOrdered By: Dionne White on 12-27-2024 Erythrocyte distribution width (RBC) [Ratio] 42.8 fl 35.1-43.9 [facility] Ferritinon 12-27-2024 Ferritin [Mass/Vol] 35 ng/mL Normal 22-378 [facility] Comment on above: Performed By: #### L 503.6594, L503.6024 ####[facility] [address] [place], [place], [id number] Glomerular filtration rate ( GFR) estimation/1.73 sq m using serum, plasma, or whole bOrdered By: Dionne Porter on 12-27-2024 GFR/1.73 sq M.predicted among non-blacks MDRD (S/P/Bld) [Vol rate/Area] 97 mL/min/{1.73_m2} >60 [facility] Comment on above: mL/min/1.73m2 CKD-EP I Creatinine Equation (2020) Gram Stainon 12-27-2024 GS Acceptable Specimen? No (>25 Epithelial cells per/lpf) Gram Stain 4+ Gram positive rods 3+ Gram negative rods 2+ Epithelial cells Normal [facility] Comment on above: Performed By: #### M 100.2000, M100.2400 ####[facility] [address] [place], [place], [id number] HH, Hemoglobin AND Hematocri ton 12-27-2024 Hematocrit (Bld) [Volume fraction] 29.0 % Low 37-47 [facility] Comment on above: Performed By: #### L 100.0600 ####[facility] [address] [place], [place], [phone] Hemoglobin (Bld) [Mass/Vol] 9.3 g/dL Low 12.0-15.0 [facility] Comment on above: Performed By: #### L 100.0600 ####[facility] [address] [place], [address] Hematocrit Auto (Bld) [Volum e fraction]Ordered By: Dionne Porter on 12-27-2024 Hematocrit (Bld) [Volume fraction] 26.3 % Low 37-47 [facility] Hemoglobin measurementOrdere d By: Dionne Porter on 12-27-2024 Hemoglobin (Bld) [Mass/Vol] 8.5 g/dL Low 12.0-15.0 [facility] Immature granulocytes/100 WB C Auto (Bld)Ordered By: [facility] [place] on 12-27-2024 Immature granulocytes/100 WBC (Bld) 1.300 % High 0.0-0.9 [facility] Comment on above: IG% - Immature Granu locytes (promyelocytes, myelocytes and metamyelocytes) > 1% indicates that a LEFT SHIFT is Present. Iron measurement (mass/mass) Ordered By: Lnyne Schafer on 12-27-2024 Iron (Unsp spec) [Mass/Mass] 17 ug/dL Low 50-170 [facility] Iron+Iron Binding Capacityon 12-27-2024 Iron [Mass/Vol] 17 ug/dL Low 50-170 [facility] Comment on above: Order Comment: off o f am blood work Performed By: #### L 503.6550, L503.6030 ####[facility] [address] [place], [address] IRON SATURATION 6.0 Low 13-59 [facility] Comment on above: Order Comment: off o f am blood work Performed By: #### L 503.6550, L503.6030 ####[facility] [address] [place], [address] TIBC 305 ug/dL Normal 250-450 [facility] Comment on above: Order Comment: off o f am blood work Performed By: #### L 503.6550, L503.6030 ####[facility] [address] [place], [address] UIBC 288 ug/dL Normal 228-428 [facility] Comment on above: Order Comment: off o f am blood work Performed By: #### L 503.6550, L503.6030 ####[facility] [address] [place], [place], [id number] Laboratory - Chemistry and C hemistry - challengeOrdered By: Dionne Porter on 12-27-2024 AST [Catalytic activity/Vol] 20 U/L <32 [facility] MCV (mean corpuscular volume ) determinationOrdered By: Dionne Charlotte on 12-27-2024 MCV (RBC) [Entitic vol] 83.8 fL 81-99 [facility] MR/CON.PCM.PAon 12-27-2024 MR/CON.PCM.PA Normal [facility] Mean corpuscular hemoglobin (MCH) determinationOrdered By: Dionne Charlotte on 12-27-2024 MCH (RBC) [Entitic mass] 27.1 pg 27.0-32.0 [facility] Mean corpuscular hemoglobin concentration (MCHC) determinationOrdered By: Charlotte on 12-27-2024 MCHC (RBC) [Mass/Vol] 32.3 g/dL 32-36 [facility] Mean platelet volume determi nationOrdered By: Dionne Charlotte on 12-27-2024 Platelet mean volume (Bld) [Entitic vol] 10.0 fL 6.2-12.0 [facility] Monocyte percentageOrdered B y: Dionne Charlotte on 12-27-2024 Monocytes/100 WBC (Bld) 1.7 % 0-10 [facility] [facility] Neutrophil percentageOrdered By: White on 12-27-2024 Neutrophils/100 WBC (Bld) 88.7 % High 47-70 [facility] No Panel InformationOrdered By: Lynne Schafer on 12-27-2024 Unsaturated Iron Binding Capacity 288 ug/dL 228-428 [facility] 288 ug/dL 228-428 [facility] No Panel InformationOrdered By: Dionne Porter on 12-27-2024 20 U/L <32 [facility] Nucleated red blood cell per centageOrdered By: Dionne White on 12-27-2024 Nucleated RBC/100 WBC (Bld) [Ratio] 0 % 0-5 [facility] Platelet countOrdered By: Lidya lepe [place] on 12-27-2024 Platelets (Bld) [#/Vol] 188 10*3/uL 150-450 [facility] Potassium measurement (mass/ volume)Ordered By: Dionne Porter on 12-27-2024 Potassium (Unsp spec) [Mass/Vol] 3.0 mmol/L Low 3.3-5.1 [facility] Comment on above: Hemolysis present, R esults could be affected. Previous reported result: 4.2 mmol/LEdited by: AUTOINS on 12/27/24:0835 AMENDED REPORT 12/27/24 0835 K previously reported as: 4.2 mmol/L Hemolysis present, Results could be affected. RBC Auto (Bld) [#/Vol]Ordere d By: Dionne Porter on 12-27-2024 RBC (Bld) [#/Vol] 3.14 10*6/uL Low 4.2-5.4 [facility] RESPIRATORY PANEL MOLECULARo n 12-27-2024 RP PANEL Normal [facility] Comment on above: Performed By: #### M 100.638 ####[facility] [address] [place], [place], [id number] Respiratory Cultureon 2024 RESPC Specimen is mostly saliva and as such may not represent an accurate assessment of the patients' pulmonary/respiratory condition. CALLED TO Jose F GARCIA RN 12/27/24 1218 Iman Fierro. REPORT READ BACK BY [JAMILA GARCIA RN] Test not performed Normal [facility] Comment on above: Performed By: #### M 100.2000, M100.2400 ####[facility] [address] [place], [place], [id number] Serum creatinine measurement (mass/volume)Ordered By: Dionne Porter on 12-27-2024 Creatinine [Mass/Vol] 0.61 mg/dL Low 0.70-1.20 [facility] Serum globulin measurementOr dered By: Dionne Porter on 12-27-2024 Globulin (S) [Mass/Vol] 2.1 g/dL Low 2.2-4.2 [facility] Serum glucose measurement (m ass/volume)Ordered By: Dionne Porter on 12-27-2024 Glucose [Mass/Vol] 151 mg/dL High 70-99 [facility] Serum or plasma alanine retana otransferase (ALT) measurementOrdered By: Dionne Porter on 12-27-2024 ALT [Catalytic activity/Vol] 20 U/L <35 [facility] Serum or plasma albumin kadi urement (mass/volume)Ordered By: Dionne Porter on 12-27-2024 Albumin [Mass/Vol] 3.8 g/dL 3.4-4.8 [facility] Serum or plasma albumin/glob ulin mass ratioOrdered By: Dionne Porter on 12-27-2024 Albumin/Globulin [Mass ratio] 1.8 {ratio} 0.9-2.4 [facility] Serum or plasma alkaline renetta sphatase measurementOrdered By: Dionne Porter on 12-27-2024 ALP [Catalytic activity/Vol] 46 U/L 35-104 [facility] Serum or plasma calcium kadi urement (mass/volume)Ordered By: Dionne Porter on 12-27-2024 Calcium [Mass/Vol] 8.9 mg/dL 7.6-11.0 [facility] Serum or plasma ferritin ranjith surement (mass/volume)Ordered By: Lynne Schafer on 12-27-2024 Ferritin [Mass/Vol] 35 ng/mL 22-378 [facility] Serum or plasma iron saturat ion measurement (mass fraction)Ordered By: Lynne Schafer on 12-27-2024 Iron saturation [Mass fraction] 6.0 % Low 13-59 [facility] Serum or plasma urea nitroge n measurement (mass/volume)Ordered By: Dionne Porter on 12-27-2024 Urea nitrogen [Mass/Vol] 18 mg/dL 4-19 [facility] Sodium levelOrdered By: Behzad mn [place] on 12-27-2024 Sodium [Moles/Vol] 140 mmol/L 133-145 [facility] Total proteinOrdered By: Arthur umn [place] on 12-27-2024 Protein [Mass/Vol] 5.9 g/dL 5.9-8.4 [facility] White blood cell (WBC) count Ordered By: Dionne Porter on 12-27-2024 WBC (Bld) [#/Vol] 5.4 10*3/uL 4.4-11.0 [facility] 12 Lead EKGon 12-26-2024 12 Lead EKG Normal [facility] Absolute lymphocyte countOrd ered By: ED PROVIDER on 12-26-2024 Lymphocytes Auto (Unsp spec) [#/Vol] 1.08 10*3/uL 0.83-4.51 [facility] Absolute neutrophil countOrd ered By: ED PROVIDER on 12-26-2024 Neutrophils (Bld) [#/Vol] 8.0 10*3/uL High 2.0-7.7 [facility] Anion gap in Serum or Plasma Ordered By: Marcel Zarate on 12-26-2024 Anion gap [Moles/Vol] 8 mmol/L 5-15 [facility] Assessment of wrist artery p atency prior to arterial punctureOrdered By: Dionne Porter on 12-26-2024 Arterial patency Wrist artery --pre arterial puncture Positive [facility] Automated lymphocyte count a s percentage of total leukocytesOrdered By: ED PROVIDER on 12-26-2024 Lymphocytes/100 WBC Auto (Unsp spec) 11.3 % Low 19-41 [facility] BUN/creatinine ratioOrdered By: Marcel Zarate on 12-26-2024 Urea nitrogen/Creatinine [Mass ratio] 25.1 mg/mg High 10-20 [facility] Basic Metabolic Profile (BMP )on 12-26-2024 BUN/CRE 25.1 RATIO High 10-20 [facility] Comment on above: Performed By: #### L 100.0100, L500.2500 ####[facility] [address] [place], [address] Calcium [Mass/Vol] 8.9 mg/dL Normal 7.6-11.0 [facility] Comment on above: Performed By: #### L 100.0100, L500.2500 ####[facility] [address] [place], [address] Chloride [Moles/Vol] 88 mmol/L Low 98-108 [facility] Comment on above: Performed By: #### L 100.0100, L500.2500 ####[facility] [address] [place], [address] CO2 [Moles/Vol] 41.6 mmol/L High 21.0-32.0 [facility] Comment on above: Performed By: #### L 100.0100, L500.2500 ####[facility] [address] [place], [address] Creatinine [Mass/Vol] 0.64 mg/dL Low 0.70-1.20 [facility] Comment on above: Performed By: #### L 100.0100, L500.2500 ####[facility] [address] [place], [address] ECRCL 65.40 ml/min Normal 50-250 [facility] Comment on above: Performed By: #### L 100.0100, L500.2500 ####[facility] [address] [place], [address] GAP 8 Normal 5-15 [facility] Comment on above: Performed By: #### L 100.0100, L500.2500 ####[facility] [address] [place], [address] GFR/1.73 sq M.predicted among non-blacks MDRD (S/P/Bld) [Vol rate/Area] 96 mL/min/{1.73_m2} Normal >60 [facility] Comment on above: Result Comment: mL/m in/1.73m2 CKD-EPI Creatinine Equation (2020) Performed By: #### L 100.0100, L500.2500 ####[facility] [address] [place], [address] Glucose [Mass/Vol] 112 mg/dL High 70-99 [facility] Comment on above: Performed By: #### L 100.0100, L500.2500 ####[facility] [address], [address] Potassium [Moles/Vol] 4.0 mmol/L Normal 3.3-5.1 [facility] Comment on above: Performed By: #### L 100.0100, L500.2500 ####[facility] [address] [place], [address] Sodium [Moles/Vol] 137 mmol/L Normal 133-145 [facility] Comment on above: Performed By: #### L 100.0100, L500.2500 ####[facility] [address] [place], [address] Urea nitrogen [Mass/Vol] 16 mg/dL Normal 4-19 [facility] Comment on above: Performed By: #### L 100.0100, L500.2500 ####[facility] [address] [place], [address] Basophil percentageOrdered B y: ED PROVIDER on 12-26-2024 Basophils/100 WBC (Bld) 0.1 % 0-1 [facility] Blood Gases by CPSon 025 CHAO TEST Positive Normal [facility] Comment on above: Performed By: #### L 9000.0800 ####[facility] [address] [place], [address] BE > 30 High -2 to +2 [facility] Comment on above: Performed By: #### L 9000.0800 ####[facility] [address] [place], [address] Blood Gas Type ART Normal [facility] Comment on above: Performed By: #### L 9000.0800 ####[facility] [address], [address] FI02 2.0 Normal [facility] Comment on above: Performed By: #### L 9000.0800 ####[facility] [address] [place], [address] HCO3 (Bld) [Moles/Vol] 55.5 mmol/L High 22-26 [facility] Comment on above: Performed By: #### L 9000.0800 ####[facility] [address] [place], [address] Mode Not entered Normal [facility] Comment on above: Performed By: #### L 9000.0800 ####[facility] [address] [place], [address] O2 Delivery Dev Cannula Normal [facility] Comment on above: Performed By: #### L 9000.0800 ####[facility] [address] [place], [address] pCO2 81.2 mmHg Invalid Interpretation Code 35-45 [facility] Comment on above: Performed By: #### L 9000.0800 ####[facility] [address] [place], [address] pH (Bld) 7.44 [pH] Normal 7.35-7.45 [facility] Comment on above: Performed By: #### L 9000.0800 ####[facility] [address] [place], [address] PO2 106 mmHG High 75-100 [facility] Comment on above: Performed By: #### L 9000.0800 ####[facility] [address] [place], [address] Read Back By Yes Normal [facility] Comment on above: Performed By: #### L 9000.0800 ####[facility] [address] [place], [address] Results To White Normal [facility] Comment on above: Performed By: #### L 9000.0800 ####[facility] [address] [place], [address] SITE L Radial Normal [facility] Comment on above: Performed By: #### L 9000.0800 ####[facility] [address] [place], [address] SO2 98 Normal 95-99 [facility] Comment on above: Performed By: #### L 9000.0800 ####[facility] [address] [place], [address] Time Given 20:42:58 Normal [facility] Comment on above: Performed By: #### L 9000.0800 ####[facility] [address] [place], [address] TOTAL CO2 > 50 Normal [facility] Comment on above: Performed By: #### L 9000.0800 ####[facility] [address] [place], [address] Blood base excess determinat ionOrdered By: Dionne Porter on 12-26-2024 Base excess Calc (BldV) [Moles/Vol] mmol/L High -2-2 [facility] Blood bicarbonate measuremen tOrdered By: Dionne Porter on 12-26-2024 HCO3 (Bld) [Moles/Vol] 55.5 mmol/L High 22-26 [facility] CBC W/Diff, Automatedon Absolute Lymph 1.08 X10 3/uL Normal 0.83-4.51 [facility] Comment on above: Performed By: #### L 100.0100, L500.2500 ####[facility] [address] [place], [address] Absolute Neut 8.0 X10 3/uL High 2.0-7.7 [facility] Comment on above: Performed By: #### L 100.0100, L500.2500 ####[facility] [address] [place], [address] Basophils/100 WBC (Bld) 0.1 % Normal 0-1 [facility] Comment on above: Performed By: #### L 100.0100, L500.2500 ####[facility] [address] [place], [address] Eosinophils/100 WBC (Bld) 0.1 % Normal 0-5 [facility] Comment on above: Performed By: #### L 100.0100, L500.2500 ####[facility] [address] [place], [address] Erythrocyte distribution width (RBC) [Ratio] 14.0 % Normal 11.6-14.6 [facility] Comment on above: Performed By: #### L 100.0100, L500.2500 ####[facility] [address] [place], [address] Hematocrit (Bld) [Volume fraction] 29.0 % Low 37-47 [facility] Comment on above: Performed By: #### L 100.0100, L500.2500 ####[facility] [address] [place], [address] Hemoglobin (Bld) [Mass/Vol] 9.2 g/dL Low 12.0-15.0 [facility] Comment on above: Performed By: #### L 100.0100, L500.2500 ####[facility] [address] [place], [address] IG% 0.800 Normal 0.0-0.9 [facility] Comment on above: Result Comment: IG% - Immature Granulocytes (promyelocytes, myelocytes andmetamyelocytes) > 1% indicates that a LEFT SHIFT is Present. Performed By: #### L 100.0100, L500.2500 ####[facility] [address] [place], [address] Lymphocytes/100 WBC (Bld) 11.3 % Low 19-41 [facility] Comment on above: Performed By: #### L 100.0100, L500.2500 ####[facility] [address] [place], [address] MCH (RBC) [Entitic mass] 26.8 pg Low 27.0-32.0 [facility] Comment on above: Performed By: #### L 100.0100, L500.2500 ####[facility] [address] [place], [address] MCHC (RBC) [Mass/Vol] 31.7 g/dL Low 32-36 [facility] Comment on above: Performed By: #### L 100.0100, L500.2500 ####[facility] [address] [place], [address] MCV (RBC) [Entitic vol] 84.5 fL Normal 81-99 [facility] Comment on above: Performed By: #### L 100.0100, L500.2500 ####[facility] [address] [place], [address] Monocytes/100 WBC (Bld) 4.5 % Normal 0-10 [facility] Comment on above: Performed By: #### L 100.0100, L500.2500 ####[facility] [address] [place], [address] Neutrophils/100 WBC (Bld) 83.2 % High 47-70 [facility] Comment on above: Performed By: #### L 100.0100, L500.2500 ####[facility] [address] [place], [address] Nucleated RBC (Bld) [#/Vol] 0 10*3/uL Normal 0-5 [facility] Comment on above: Performed By: #### L 100.0100, L500.2500 ####[facility] [address] [place], [address] Platelet mean volume (Bld) [Entitic vol] 9.3 fL Normal 6.2-12.0 [facility] Comment on above: Performed By: #### L 100.0100, L500.2500 ####[facility] [address] [place], [address] Platelets (Bld) [#/Vol] 219 10*3/uL Normal 150-450 [facility] Comment on above: Performed By: #### L 100.0100, L500.2500 ####[facility] [address] [place], [address] RBC (Bld) [#/Vol] 3.43 10*6/uL Low 4.2-5.4 [facility] Comment on above: Performed By: #### L 100.0100, L500.2500 ####[facility] [address] [place], [address] RDW SD 43.0 fl Normal 35.1-43.9 [facility] Comment on above: Performed By: #### L 100.0100, L500.2500 ####[facility] [address] [place], [address] WBC (Bld) [#/Vol] 9.6 10*3/uL Normal 4.4-11.0 [facility] Comment on above: Performed By: #### L 100.0100, L500.2500 ####[facility] [address] [place], [address] CNPNon 12-26-2024 CNPN Telephone (INTMWS) DENIA GONZALEZ ([id number]) 1955 F Date Time Provider Department 12/26/24 YOSEPH FALL During your visit today, we recorded the following information about you: Ban Villafana LPN 12/26/2024 9:57 AM Signed Electronic PA rec'd and completed. Prior authorization approved Payer: [employer] [phone] Note from payer: CaseId:[id number];Stat us:Approved;Review Type:Prior Auth;Coverage Start Date:11/22/2024;Cover age End [...] to its destination. To be filled at: [facility] [address] [place] [address] [address] [facility] - [phone] Allergies As of Date: 12/26/2024 (No Known Allergies) Date Reviewed: 11/22/2024 Reviewed by: Gregor Fernandez APRN.SHIPPING CHECKER - Fully Assessed Reason for Visit: Insurance [...] directed. Dx: COPD J44.9 - Nebulizer Accessories [facility] Mask and supplies as needed - PULSE OXIMETER [facility] Use as directed to check oxygen saturation level - ammonium lactate (AMLACTIN) 12 % lotion Apply 1 application to affected area as needed for Dry Skin. - losartan (COZAAR) 50 mg tablet Take 0.5 tablets by mouth once daily. - OXYGEN, HOME THERAPY, 2.5 L/min by Nasal Cannula route continuous. Use as directred - Disposable Gloves (DISPOSABLE LATEX-FREE GLOVES) [facility] 1 Box once [...] unspe* 08/11/ (more content not included)... Normal [facility] Carbon dioxide, total [Moles /volume] in Central venous bloodOrdered By: Marcel Zarate on 12-26-2024 CO2 [Moles/Vol] 41.6 mmol/L High 21.0-32.0 [facility] Chest 1 View (Portable)on Chest 1 View (Portable) Normal [facility] Chloride assayOrdered By: Seun Zarate on 12-26-2024 Chloride [Moles/Vol] 88 mmol/L Low 98-108 [facility] Emergency Department Summary on 12-26-2024 Emergency Department Summary Normal [facility] Eosinophil percentageOrdered By: ED PROVIDER on 12-26-2024 Eosinophils/100 WBC (Bld) 0.1 % 0-5 [facility] Erythrocyte distribution wid th ratioOrdered By: ED PROVIDER on 12-26-2024 Erythrocyte distribution width (RBC) [Ratio] 14.0 % 11.6-14.6 [facility] Erythrocyte distribution wid th standard deviationOrdered By: ED PROVIDER on 12-26-2024 Erythrocyte distribution width (RBC) [Ratio] 43.0 fl 35.1-43.9 [facility] Ferritinon 12-26-2024 Ferritin [Mass/Vol] 22 ng/mL Normal 22-378 [facility] Comment on above: Order Comment: Comme nts: may add to ED labs Performed By: #### L 503.6550, L503.6030, L501.5200 ####[facility] [address] [place], [address] Glomerular filtration rate ( GFR) estimation/1.73 sq m using serum, plasma, or whole bOrdered By: Marcel Zarate on 12-26-2024 GFR/1.73 sq M.predicted among non-blacks MDRD (S/P/Bld) [Vol rate/Area] 96 mL/min/{1.73_m2} >60 [facility] Comment on above: mL/min/1.73m2 CKD-EP I Creatinine Equation (2020) Gram stainOrdered By: Dionne Porter on 12-26-2024 Microscopic observation Gram stain Nom (Unsp spec) [facility] H AND P Exam - Hospitaliston 12-26-2024 H&P Exam - Hospitalist Normal [facility] HH, Hemoglobin AND Hematocri ton 12-26-2024 Hematocrit (Bld) [Volume fraction] 26.5 % Low 37-47 [facility] Comment on above: Performed By: #### L 100.0600 ####[facility] [address] [place], [place], [id number]) Hemoglobin (Bld) [Mass/Vol] 8.5 g/dL Low 12.0-15.0 [facility] Comment on above: Performed By: #### L 100.0600 ####[facility] [address] [place], [address]) Hematocrit Auto (Bld) [Volum e fraction]Ordered By: ED PROVIDER on 12-26-2024 Hematocrit (Bld) [Volume fraction] 29.0 % Low 37-47 [facility] Hemoglobin measurementOrdere d By: ED PROVIDER on 12-26-2024 Hemoglobin (Bld) [Mass/Vol] 9.2 g/dL Low 12.0-15.0 [facility] Immature granulocytes/100 WB C Auto (Bld)Ordered By: ED PROVIDER on 12-26-2024 Immature granulocytes/100 WBC (Bld) 0.800 % 0.0-0.9 [facility] Comment on above: IG% - Immature Granu locytes (promyelocytes, myelocytes and metamyelocytes) > 1% indicates that a LEFT SHIFT is Present. Iron+Iron Binding Capacityon 12-26-2024 Iron [Mass/Vol] 25 ug/dL Low 50-170 [facility] Comment on above: Order Comment: Comme nts: may add to ED labs Performed By: #### L 503.6550, L503.6030, L501.5200 ####[facility] [address] [place], [address] IRON SATURATION 8.0 Low 13-59 [facility] Comment on above: Order Comment: Comme nts: may add to ED labs Performed By: #### L 503.6550, L503.6030, L501.5200 ####[facility] [address] [place], [address] TIBC 313 ug/dL Normal 250-450 [facility] Comment on above: Order Comment: Comme nts: may add to ED labs Performed By: #### L 503.6550, L503.6030, L501.5200 ####[facility] [address] [place], [address] UIBC 288 ug/dL Normal 228-428 [facility] Comment on above: Order Comment: Comme nts: may add to ED labs Performed By: #### L 503.6550, L503.6030, L501.5200 ####[facility] [address] [place], [address] L501.4021on 12-26-2024 Trop T High Sen 25 ng/L High <=14 [facility] Comment on above: Performed By: #### L 501.4021 ####[facility] [address] [place], [address] L509.7001on 12-26-2024 Procalcitonin 0.04 ng/mL Normal <=0.10 [facility] Comment on above: Result Comment: Inte rpretation:<0.10-0.25 ng/mL: Antibiotic therapy discouraged. Bacterialinfection unlikely.0.25-0.50 ng/mL: Antibiotic therapy encouraged. Bacterialinfection possible.>0.50 ng/mL: Antibiotic therapy strongly encouraged.Suggestive of presence of bacterial infection.PCT should always be interpreted in the clinical context ofthe patient. Therefore, clinicians should use the PCTresults in conjunction with other laboratory findings andclinical signs of the patient. Performed By: #### L 509.7001 ####[facility] [address] [facility] [place], [address] MCV (mean corpuscular volume ) determinationOrdered By: ED PROVIDER on 12-26-2024 MCV (RBC) [Entitic vol] 84.5 fL 81-99 [facility] Magnesiumon 12-26-2024 Magnesium [Mass/Vol] 1.9 mg/dL Normal 1.5-2.2 [facility] Comment on above: Order Comment: Comme nts: may add to ED labs Performed By: #### L 503.6550, L503.6030, L501.5200 ####[facility] [address] [place], [place], [address] Magnesium measurement (mass/ volume)Ordered By: Dionne Porter on 12-26-2024 Magnesium (Unsp spec) [Mass/Vol] 1.9 mg/dL 1.5-2.2 [facility] Mean corpuscular hemoglobin (MCH) determinationOrdered By: ED PROVIDER on 12-26-2024 MCH (RBC) [Entitic mass] 26.8 pg Low 27.0-32.0 [facility] Mean corpuscular hemoglobin concentration (MCHC) determinationOrdered By: ED PROVIDER on 12-26-2024 MCHC (RBC) [Mass/Vol] 31.7 g/dL Low 32-36 [facility] Mean platelet volume determi nationOrdered By: ED PROVIDER on 12-26-2024 Platelet mean volume (Bld) [Entitic vol] 9.3 fL 6.2-12.0 [facility] Measurement, pHOrdered By: Sheba Porter on 12-26-2024 pH (Unsp spec) 7.44 [pH] 7.35-7.45 [facility] Microbial respiratory cultur eOrdered By: Dionne Porter on 12-26-2024 Microorganism identified Cx Nom (Unsp spec) [facility] Monocyte percentageOrdered B y: ED PROVIDER on 12-26-2024 Monocytes/100 WBC (Bld) 4.5 % 0-10 [facility] Neutrophil percentageOrdered By: ED PROVIDER on 12-26-2024 Neutrophils/100 WBC (Bld) 83.2 % High 47-70 [facility] No Panel InformationOrdered By: Dionne Porter on 12-26-2024 Bld Gas Crit Called To/Read Back By Yes [facility] Blood Gas Notified Time 20:42:58 [facility] Blood Gas Notified Whom [place] [facility] Blood Gas Sample Site L Radial [facility] Blood Gas Specimen Type ART [facility] Blood Gas Vent Mode Not entered [facility] Oxygen Delivery Device Cannula [facility] L Radial [facility] Not entered [facility] Cannula [facility] 20:42:58 [facility] Yes [facility] Nucleated red blood cell per centageOrdered By: ED PROVIDER on 12-26-2024 Nucleated RBC/100 WBC (Bld) [Ratio] 0 % 0-5 [facility] Platelet countOrdered By: ED PROVIDER on 12-26-2024 Platelets (Bld) [#/Vol] 219 10*3/uL 150-450 [facility] Potassium measurement (mass/ volume)Ordered By: Marcel Zarate on 12-26-2024 Potassium (Unsp spec) [Mass/Vol] 4.0 mmol/L 3.3-5.1 [facility] Procalcitonin [Mass/volume] in Serum or Plasma by ImmunoassayOrdered By: Dionne Porter on 12-26-2024 Procalcitonin IA [Mass/Vol] 0.04 ng/mL <0.11 [facility] Comment on above: Interpretation:<0.10 -0.25 [...] RBC (Bld) [#/Vol] 3.43 10*6/uL Low 4.2-5.4 [facility] Respiratory pathogens detect ion panel by molecular detection methodOrdered By: Dionne Porter on 12-26-2024 Respiratory pathogens DNA and RNA panel ASPEN+probe (Resp) [facility] Serum creatinine measurement (mass/volume)Ordered By: Marcel Zarate on 12-26-2024 Creatinine [Mass/Vol] 0.64 mg/dL Low 0.70-1.20 [facility] Serum glucose measurement (m ass/volume)Ordered By: Marcel Zarate on 12-26-2024 Glucose [Mass/Vol] 112 mg/dL High 70-99 [facility] [facility] Serum or plasma calcium kadi urement (mass/volume)Ordered By: Marcel Zarate on 12-26-2024 Calcium [Mass/Vol] 8.9 mg/dL 7.6-11.0 [facility] Serum or plasma urea nitroge n measurement (mass/volume)Ordered By: Marcel Zarate on 12-26-2024 Urea nitrogen [Mass/Vol] 16 mg/dL 4-19 [facility] Sodium levelOrdered By: Haider Zarate on 12-26-2024 Sodium [Moles/Vol] 137 mmol/L 133-145 [facility] Troponin T HS 2 HRon 025 Trop T High Sen 25 ng/L High <=14 [facility] Comment on above: Performed By: #### L 499.0042 ####[facility] [address] [place], [address] Troponin T HS 4 HRon 025 Trop T High Sen 26 ng/L High <=14 [facility] Comment on above: Performed By: #### L 499.0043 ####[facility] [address] [place], [address] Troponin T.cardiac [Mass/vol ume] in Serum or Plasma by High sensitivity methodOrdered By: Marcel Zarate on 12-26-2024 Troponin T.cardiac High sensitivity method [Mass/Vol] 26 ng/L High <14 [facility] Troponin T.cardiac High sensitivity method [Mass/Vol] 25 ng/L High <14 [facility] Troponin T.cardiac High sensitivity method [Mass/Vol] 25 ng/L High <14 [facility] Comment on above: Delta: 23 on 531 White blood cell (WBC) count Ordered By: ED PROVIDER on 12-26-2024 WBC (Bld) [#/Vol] 9.6 10*3/uL 4.4-11.0 [facility] DEN[facility] GONZALEZ ([id number]) 1955 F Date Time Provider Department 12/22/24 [facility] FALL [facility] During your visit today, we recorded [...] Date Reviewed: 11/22/2024 Reviewed by: Gregor Fernandez APRN.SHIPPING CHECKER - Fully Assessed Reason for Visit: Patient [...] directed. Dx: COPD J44.9 - Nebulizer Accessories [facility] Mask and supplies as needed - PULSE OXIMETER [facility] Use as directed to check oxygen saturation level - ammonium lactate (AMLACTIN) 12 % lotion Apply 1 application to affected area as needed for Dry Skin. - losartan (COZAAR) 50 mg tablet Take 0.5 tablets by mouth once daily. - OXYGEN, HOME THERAPY, 2.5 L/min by Nasal Cannula route continuous. Use as directred - Disposable Gloves (DISPOSABLE LATEX-FREE GLOVES) [facility] 1 Box once [...] NOS [C34. (more content not included)... Normal [facility] CBC W Auto Differential pane l (Bld)on 12-15-2024 Basophils (Bld) [#/Vol] 0 10*3/uL 0.0 - 0.2 10*3/uL [employer] Basophils/100 WBC (Bld) 0.1 % 0.0 - 2.0 % [employer] Eosinophils (Bld) [#/Vol] 0 10*3/uL 0.0 - 0.5 10*3/uL [employer] Eosinophils/100 WBC (Bld) 0.1 % 0.0 - 6.0 % [employer] Erythrocyte distribution width (RBC) [Ratio] 13.6 % 11.5 - 15.0 % [employer] Hematocrit (Bld) [Volume fraction] 33.3 % Low 35.0 - 47.0 % [employer] Hemoglobin (Bld) [Mass/Vol] 10.5 g/dL Low 11.7 - 16.0 g/dL [employer] Immature granulocytes (Bld) [#/Vol] 0.1 10*3/uL High NINF - 0.1 10*3/uL [employer] Immature granulocytes/100 WBC (Bld) 0.8 % 0.0 - 2.0 % [employer] Interpretation and review of laboratory results Abnormal [employer] Lymphocytes (Bld) [#/Vol] 0.8 10*3/uL Low 1.0 - 4.3 10*3/uL [employer] Lymphocytes/100 WBC (Bld) 9.8 % Low 15.0 - 45.0 % [facility] MCH (RBC) [Entitic mass] 26.3 pg 26. 0 - 34.0 pg [facility] MCHC (RBC) [Mass/Vol] 31.5 % 30.5 - 36.0 % [facility] MCV (RBC) [Entitic vol] 83.5 fL 77.0 - 99.0 fL [facility] Monocytes (Bld) [#/Vol] 0.2 10*3/uL 0.0 - 0.9 10*3/uL [facility] Monocytes/100 WBC (Bld) 1.9 % Low 5.0 - 13.0 % [facility] Neutrophils (Bld) [#/Vol] 7.3 10*3/uL 1.8 - 7.5 10*3/uL [facility] Neutrophils/100 WBC (Bld) 87.3 % High 38.0 - 82.0 % [facility] Nucleated RBC/100 WBC (Bld) [Ratio] 0 % [facility] Platelet mean volume (Bld) [Entitic vol] 10.2 fL 9.0 - 12.7 fL [facility] Platelets (Bld) [#/Vol] 239 10*3/uL 140 - 440 10*3/uL [facility] RBC (Bld) [#/Vol] 3.99 10*6/uL 3.80 - 5.2 0 10*6/uL [facility] WBC (Bld) [#/Vol] 8.3 10*3/uL 3.6 - 10.7 10*3/uL [facility] CBC WITH AUTO DIFFERENTIALon 12-15-2024 Basophils (Bld) [#/Vol] 0.0 10*3/uL Normal 0.0-0.2 [facility] Comment on above: Performed By: #### L [id number] ####Co Founder & Ceo: EDDA MCKINLEY ([id number])[facility])[address] [place] [address] Basophils/100 WBC (Bld) 0.1 % Normal 0.0-2.0 [facility] Comment on above: Performed By: #### L [id number] ####Co Founder & Ceo: EDDA MCKINLEY ([phone])[facility] Eosinophils (Bld) [#/Vol] 0.0 10*3/uL Normal 0.0-0.5 [facility] Comment on above: Performed By: #### L [id number] ####Co Founder & Ceo: EDAD MCKINELY ([phone])[facility])[address] [place] [address] Eosinophils/100 WBC (Bld) 0.1 % Normal 0.0-6.0 [facility] Comment on above: Performed By: #### L [id number] ####Co Founder & Ceo: EDDA MCKINLEY ([phone])[address] Erythrocyte distribution width (RBC) [Ratio] 13.6 % Normal 11.5-15.0 [facility] Comment on above: Performed By: #### L [id number] ####Co Founder & Ceo: EDDA MCKINLEY ([phone])[address] Hematocrit (Bld) [Volume fraction] 33.3 % Low 35.0-47.0 [facility] Comment on above: Performed By: #### L [id number] ####Co Founder & Ceo: EDDA MCKINLEY ([phone])[address] Hemoglobin (Bld) [Mass/Vol] 10.5 g/dL Low 11.7-16.0 [facility] Comment on above: Performed By: #### L [id number] ####Co Founder & Ceo: EDDA MCKINLEY ([id number])[address] IMMATURE GRANS % 0.8 % Normal 0.0-2.0 [facility] Comment on above: Performed By: #### L [id number] ####Co Founder & Ceo: EDDA MCKINLEY ([phone])[address] IMMATURE GRANS ABSOLUTE 0.1 10*3/uL High <0.1 [facility] Comment on above: Performed By: #### L [id number] ####Co Founder & Ceo: EDDA MCKINLEY ([phone])[facility])[address] [place] [address] Lymphocytes (Bld) [#/Vol] 0.8 10*3/uL Low 1.0-4.3 [facility] Comment on above: Performed By: #### L [id number] ####Co Founder & Ceo: EDDA MCKINLEY ([phone])[facility])[address] [place] [address] Lymphocytes/100 WBC (Bld) 9.8 % Low 15.0-45.0 [facility] Comment on above: Performed By: #### L [id number] ####Co Founder & Ceo: EDDA MCKINLEY ([phone])[facility])[address] [place] [address] MCH (RBC) [Entitic mass] 26.3 pg Normal 26.0-34.0 [facility] Comment on above: Performed By: #### L [id number] ####Co Founder & Ceo: EDDA MCKINLEY ([phone])[facility])[address] [place] [address] MCHC 31.5 % Normal 30.5-36.0 [facility] Comment on above: Performed By: #### L [id number] ####Co Founder & Ceo: EDDA MCKINLEY ([phone])[facility])[address] [place] [address] MCV (RBC) [Entitic vol] 83.5 fL Normal 77.0-99.0 [facility] Comment on above: Performed By: #### L [id number] ####Co Founder & Ceo: EDDA MCKINLEY ([phone])[facility])[address] [place] [address] Monocytes (Bld) [#/Vol] 0.2 10*3/uL Normal 0.0-0.9 [facility] Comment on above: Performed By: #### L [id number] ####Co Founder & Ceo: EDDA MCKINLEY ([phone])[facility] ([facility])[address] [place] [address] [place] Monocytes/100 WBC (Bld) 1.9 % Low 5.0-13.0 [facility] Comment on above: Performed By: #### L [id number] ####Co Founder & Ceo: EDDA MCKINLEY ([phone])[facility] ([facility])[address] [place] [address] NEUTROPHILS ABSOLUTE 7.3 10*3/uL Normal 1.8-7.5 [facility] Comment on above: Performed By: #### L [id number] ####Co Founder & Ceo: EDDA MCKINLEY ([phone])[facility])[address] [place] [address] Neutrophils/100 WBC (Bld) 87.3 % High 38.0-82.0 [facility] Comment on above: Performed By: #### L [id number] ####Co Founder & Ceo: EDDA MCKINLEY ([phone])[facility] ([facility])[address] [place] [address] NRBC 0.0 /100 WBCs Normal 0.0-2.0 [facility] Comment on above: Performed By: #### L [id number] ####Co Founder & Ceo: EDDA MCKINLEY ([phone])[facility])[address] [place] [address] Platelet mean volume (Bld) [Entitic vol] 10.2 fL Normal 9.0-12.7 [facility] Comment on above: Performed By: #### L [id number] ####Co Founder & Ceo: EDDA MCKINLEY ([phone])[facility])[address] [place] [address] [place] Platelets (Bld) [#/Vol] 239 10*3/uL Normal 140-440 [facility] Comment on above: Performed By: #### L [id number] ####Co Founder & Ceo: EDDA MCKINLEY ([phone])[facility])[address] [place] [address] RBC (Bld) [#/Vol] 3.99 10*6/uL Normal 3.80-5.20 [facility] Comment on above: Performed By: #### L [id number] ####Co Founder & Ceo: EDDA MCKINLEY ([phone])[facility])[address] [place] [address] WBC (Bld) [#/Vol] 8.3 10*3/uL Normal 3.6-10.7 [facility] Comment on above: Performed By: #### L [id number] ####Co Founder & Ceo: EDDA MCKINLEY ([phone])[facility])[address] [place] [address] COMPREHENSIVE METABOLIC PANE Eddie 12-15-2024 Albumin [Mass/Vol] 3.7 g/dL Normal 3.4-4.8 [facility] Comment on above: Performed By: #### L [id number] ####Co Founder & Ceo: EDDA MCKINLEY ([phone])[facility])[address] [place] [address] ALP [Catalytic activity/Vol] 49 U/L Normal 40-150 [facility] Comment on above: Performed By: #### L [id number] ####Co Founder & Ceo: EDDA MCKINLEY ([phone])[facility])[address] [place] [address] ALT [Catalytic activity/Vol] 16 U/L Normal <30 [facility] Comment on above: Performed By: #### L [id number] ####Co Founder & Ceo: EDDA MCKINLEY ([phone])[facility])[address] [place] [address] Anion gap [Moles/Vol] 7 mmol/L Normal 3-13 [facility] Comment on above: Performed By: #### L [id number] ####Co Founder & Ceo: EDDA MCKINLEY ([phone])[facility])[address] [place] [address] AST [Catalytic activity/Vol] 18 U/L Normal <34 [facility] Comment on above: Performed By: #### L [id number] ####Co Founder & Ceo: EDDA MCKINLEY ([phone])[facility])[address] [place] [address] Bilirubin [Mass/Vol] 0.4 mg/dL Normal <1.2 [facility] Comment on above: Performed By: #### L [id number] ####Co Founder & Ceo: EDDA MCKINLEY ([phone])[facility])[address] [place] [address] Calcium [Mass/Vol] 8.6 mg/dL Low 8.8-10.0 [facility] Comment on above: Performed By: #### L [id number] ####Co Founder & Ceo: EDDA MCKINLEY ([phone])[facility])[address] [place] [address] Chloride [Moles/Vol] 88 mmol/L Low 98-107 [facility] Comment on above: Performed By: #### L [id number] ####Co Founder & Ceo: EDDA MCKINLEY ([phone])[facility])[address] [place] [address] CO2 [Moles/Vol] 40 mmol/L High 23-31 [facility] Comment on above: Performed By: #### L [id number] ####Co Founder & Ceo: EDDA MCKINLEY ([phone])[facility])[address] [place] [address] Creatinine [Mass/Vol] 0.72 mg/dL Normal 0.57-1.11 [facility] Comment on above: Performed By: #### L [id number] ####Co Founder & Ceo: EDDA MCKINLEY ([phone])[facility])[address] [place] [address] GLOMERULAR FILTRATION RATE ML/MIN/1.73 SQ M.PREDICTED >90.0 Normal >60.0 [facility] Comment on above: Result Comment: Calc ulation based on the Chronic Kidney Disease Epidemiology Collaboration (CKD-EPI) equation refit without adjustment for race Performed By: #### L [id number] ####Co Founder & Ceo: EDDA MCKINLEY ([phone])[facility])[address] [place] [address] Glucose [Mass/Vol] 114 mg/dL Normal 82-115 [facility] Comment on above: Performed By: #### L [id number] ####Co Founder & Ceo: EDDA MCKINLEY ([phone])[facility])[address] [place] [address] Potassium [Moles/Vol] 4.3 mmol/L Normal 3.5-5.1 [facility] Comment on above: Result Comment: [facility] potassium values may be up to 0.5 mmol/L lower than serum values. Performed By: #### L [id number] ####Co Founder & Ceo: EDDA MCKINLEY ([phone])[facility])[address] [place] [address] Protein [Mass/Vol] 6.5 g/dL Normal 6.4-8.3 [facility] Comment on above: Performed By: #### L [id number] ####Co Founder & Ceo: EDDA MCKINLEY ([phone])[facility])[address] [place] [address] Sodium [Moles/Vol] 135 mmol/L Low 136-145 [facility] Comment on above: Performed By: #### L [id number] ####Co Founder & Ceo: EDDA MCKINLEY ([phone])[facility])[address] [place] [address] Urea nitrogen [Mass/Vol] 19 mg/dL Normal 9-23 [facility] Comment on above: Performed By: #### L [id number] ####Co Founder & Ceo: EDDA MCKINLEY ([phone])[facility])[address] [place] [address] Comprehensive metabolic 1998 panelon 12-15-2024 Albumin [Mass/Vol] 3.7 g/dL 3.4 - 4.8 g/dL [facility] ALP [Catalytic activity/Vol] 49 U/L 40 - 150 U/L [facility] ALT [Catalytic activity/Vol] 16 U/L NINF - 30 U/L [facility] Anion gap [Moles/Vol] 7 mmol/L 3 - 13 mmol/L [facility] AST [Catalytic activity/Vol] 18 U/L NINF - 34 U/L [facility] Bilirubin [Mass/Vol] 0.4 mg/dL NINF - 1.2 mg/dL [facility] Calcium [Mass/Vol] 8.6 mg/dL Low 8.8 - 10. 0 mg/dL [facility] Chloride [Moles/Vol] 88 mmol/L Low 98 - 10 7 mmol/L [facility] CO2 [Moles/Vol] 40 mmol/L High 23 - 31 mmol/L [facility] Creatinine [Mass/Vol] 0.72 mg/dL 0.57 - 1.11 mg/dL [facility] GFR/1.73 sq M.predicted (S/P/Bld) [Vol rate/Area] - PINF [facility] Comment on above: Calculation based on the Chronic Kidney Disease Epidemiology Collaboration (CKD-EPI) equation refit without adjustment for race Glucose [Mass/Vol] 114 mg/dL 82 - 115 mg/dL [facility] Interpretation and review of laboratory results Abnormal [facility] Potassium [Moles/Vol] 4.3 mmol/L 3.5 - 5.1 mmol/L [facility] Comment on above: Plasma potassium abdulkadir ues may be up to 0.5 mmol/L lower than serum values. Protein [Mass/Vol] 6.5 g/dL 6.4 - 8.3 g/dL [facility] Sodium [Moles/Vol] 135 mmol/L Low 136 - 145 mmol/L [facility] Urea nitrogen [Mass/Vol] 19 mg/dL 9 - 23 mg/d L [facility] Office Visiton 12-15-2024 Follow-up visit [id number] Kai Gonzalez 1955 F Date Provider Department Center 12/15/2024 [id number] CORBETT [facility] [address] Family History Problem Relation Age of Onset Hypertension Mother Throat cancer Mother Hypertension Father Stomach cancer Father Family Status - Relation Status Age at Mother Father Level of Service:85121 SD OFFICE/OP CONSLTJ NEW/EST PT HIGH MDM 55 MINUTES Reason for Visit and Comments: Cardiac Valve Problem [1334] New Patient [542] - Heart Valve Clinic Normal [facility] Follow-up visit [id number] Kai Gonzalez 1955 F Date Provider Department Center 12/15/2024 [id number] SHEA [facility] [address] Family History Problem Relation Age of Onset Hypertension Mother Throat cancer Mother Hypertension Father Stomach cancer Father Family Status - Relation Status Age at Mother Father Level of Service:93843 SD OFFICE/OUTPATIENT NEW HIGH MDM 60 MINUTES Reason for Visit and Comments: Cardiac Valve Problem [1334] New Patient [542] - Heart Valve Clinic Normal [facility] Progress Noteon 12-15-2024 Progress Note [facility]: Cardiothoracic Surgery Multidisciplinary Heart Valve Clinic Date: 12/14/24 Patient:Denia Gonzalez 1955 69 y.o. female [id number] Subjective: HPI: Denia Gonzalez 69 y.o. referred by SADIQ Aguilar is being evaluated for aortic valve stenosis. Echocardiogram completed on 10/02/24 showed severe aortic valve stenosis with peak/mean gradients 75/50 mm Hg, SASHA 0.85 cm^2. Per note, patient with past medical history significant for COPD, chronic hypoxic respiratory failure, on home O2, HTN, smoker. Patient was admitted to [facility] 09/29/24 for respiratory failure and newly [...] a past medical history of A-fib (CMS/HCC) ([facility]), Anxiety, Aortic stenosis, Asthma, Chronic respiratory failure ([facility]), COPD (chronic obstructive pulmonary disease) ([facility]), Depressed, History of ETOH abuse, [...] for mu (more content not included)... Normal [facility] Progress Note [facility] - [address] [address] Dept: [phone] Dept Visit type: New : 1955 Reason for Visit: New patient, Heart Valve Clinic Assessment and Plan 1. Preop cardiovascular exam - CBC auto differential - Comprehensive metabolic panel - Case Request Underwear Hemmer: Left and right heart cath / coronary [...] (degenerative, rheumatic, (more content not included)... Normal [facility] Progress Noteon 12-14-2024 Progress Note Denia Gonzalez 69 y.o. referred by SADIQ Aguilar is being evaluated for aortic valve stenosis. Echocardiogram completed on 10/02/24 showed severe aortic valve stenosis with peak/mean gradients 75/50 mm Hg, SASHA 0.85 cm^2. Per note, patient with past medical history significant for COPD, chronic hypoxic respiratory failure, on home O2, HTN, smoker. Patient was admitted to [facility] 09/29/24 for respiratory failure and newly [...] (hypertension) Migraines RLS (restless legs syndrome) Normal [facility] 12-08-2024 CNPN Telephone (INTMWS) DENIA GONZALEZ ([id number]) 1955 F Date Time Provider Department 12/08/24 YOSEPH FALL INTWS During your visit today, we recorded the following information about you: Ban Villafana LPN 12/08/2024 10:31 AM Signed Electronic PA rec'd and completed for cyclobenzaprine (FLEXERIL) 10 mg tablet Ban Villafana LPN 12/08/2024 10:43 AM Signed prior authorization approved Payer: [employer] HOME [employer]IVERY [phone] Note from payer: CaseId:[id number];Stat us:Approved;Review Type:Prior Auth;Coverage Start Date:11/08/2024;Cover age End [...] to its destination. To be filled at: [facility] [address] [place] [address] [address] - [phone] Pharmacy notified. Allergies As of Date: 12/08/2024 (No Known Allergies) Date Reviewed: 11/22/2024 Reviewed by: Gregor Fernandez APRN.SHIPPING CHECKER - Fully Assessed Reason for Visit: Insurance Authorization [[id number]] Prescriptions as of 12/08/2024 - cyclobenzaprine (FLEXERIL) [...] directed. Dx: COPD J44.9 - Nebulizer Accessories [facility] Mask and supplies as needed - PULSE OXIMETER [facility] Use as directed to check oxygen saturation level - ammonium lactate (AMLACTIN) 12 % lotion Apply 1 application to affected area as needed for Dry Skin. - losartan (COZAAR) 50 mg tablet Take 0.5 tablets by mouth once daily. - OXYGEN, HOME THERAPY, 2.5 L/min by Nasal Cannula route continuous. Use as directred - Disposable Gloves (DISPOSABLE LATEX-FREE GLOVES) [facility] 1 Box once [...] Resolved Other (more content not included)... Normal [facility] 36on 11-28-2024 36 Chart made and [employer] packet mailed Normal [facility] CNPNon 11-27-2024 CNPN Telephone (FAMPWS) DENIA GONZALEZ ([id number]) 1955 F Date Time Provider Department 11/27/24 [facility] During your visit today, we recorded the following information about you: Padmini Abbott RN 11/27/2024 2:16 PM Signed Rafa with [facility] Nursing calling and states he plans to add 1 more visit to pt's plan of care, to discharge patient. No call back needed if provider agreeable with this. KAREN Robledo Mark D, MD 11/27/2024 3:12 PM Signed Noted and agree Yoseph Fall MD Allergies As of Date: 11/27/2024 (No Known Allergies) Date Reviewed: 11/22/2024 Reviewed by: Gregor Fernandez APRN.SHIPPING CHECKER - Fully Assessed Reason for Visit: [facility] Nursing Call [Other] Prescriptions as of [...] directed. Dx: COPD J44.9 - Nebulizer Accessories [facility] Mask and supplies as needed - PULSE OXIMETER [facility] Use as directed to check oxygen saturation level - ammonium lactate (AMLACTIN) 12 % lotion Apply 1 application to affected area as needed for Dry Skin. - losartan (COZAAR) 50 mg tablet Take 0.5 tablets by mouth once daily. - OXYGEN, HOME THERAPY, 2.5 L/min by Nasal Cannula route continuous. Use as directred - Disposable Gloves (DISPOSABLE LATEX-FREE GLOVES) [facility] 1 Box once [...] 06/27/2016 Constipatio (more content not included)... [facility]) DENIA GONZALEZ ([id number]) 1955 F Date Time Provider Department 11/24/24 MIKAYLA BROUSSARD [facility] During your visit today, we recorded the following information about you: Mikayla Broussard RN 11/24/2024 3:36 PM Signed Palliative Medicine at Home Care Coordination New Patient Note My chart note sent. Nurse introduced self and role of Pediatric Nurse Practitioner in Palliative Medicine. Reviewed contact sheet information and on-call process. Nurse educated patient on medication refill process. Nurse encouraged patient to call with any questions/concerns/sy mptom related issues. Mikayla Broussard RNCC Er Medical Technician Allergies As of Date: 11/24/2024 (No Known Allergies) Date Reviewed: 11/22/2024 Reviewed by: Gregor Fernandez APRN.[facility] - Fully Assessed Reason for Visit: Care Coordination [1021] Prescriptions as of 11/24/2024 - doxycycline (VIBRA-TABS) [...] and supplies as needed - PULSE OXIMETER [facility] Use as directed to check oxygen saturation level - ammonium lactate (AMLACTIN) 12 % lotion Apply 1 application to affected area as needed for Dry Skin. - losartan (COZAAR) 50 mg tablet Take 0.5 tablets by mouth once daily. - OXYGEN, HOME THERAPY, 2.5 L/min by Nasal Cannula route continuous. Use as directred - Disposable Gloves (DISPOSABLE LATEX-FREE GLOVES) [facility] 1 Box once [...] 03/22/2007 B (more content not included)... [facility] DENIA GONZALEZ ([id number]) 1955 F Date Time Provider Department [facility] During your visit today, we recorded the following information about you: Shira Shaw LISW 11/24/2024 11:11 AM Signed November 24, 2024 Opened by mistake, please disregard. [facility] Work [phone] Allergies As of Date: 11/24/2024 (No Known Allergies) Date Reviewed: 11/22/2024 Reviewed by: Gregor Fernandez APRN.SHIPPING CHECKER - Fully Assessed Prescriptions as of 11/24/2024 [...] directed. Dx: COPD J44.9 - Nebulizer Accessories [facility] Mask and supplies as needed - PULSE OXIMETER [facility] Use as directed to check oxygen saturation level - ammonium lactate (AMLACTIN) 12 % lotion Apply 1 application to affected area as needed for Dry Skin. - losartan (COZAAR) 50 mg tablet Take 0.5 tablets by mouth once daily. - OXYGEN, HOME THERAPY, 2.5 L/min by Nasal Cannula route continuous. Use as directred - Disposable Gloves (DISPOSABLE LATEX-FREE GLOVES) [facility] 1 Box once [...] MRSA bacteremia (more content not included)... [facility] DENIA GONZALEZ ([id number]) 1955 F Date Time Provider Department 11/23/24 MIKAYLA BROUSSARD [facility] During your visit today, we recorded [...] machine/device. Thank you, Mikayla Broussard, RNCC, PN Er Medical Technician Allergies As of Date: 11/23/2024 (No Known [...] directed. Dx: COPD J44.9 - Nebulizer Accessories [facility] Mask and supplies as needed - PULSE OXIMETER [facility] Use as directed to check oxygen saturation level - ammonium lactate (AMLACTIN) 12 % lotion Apply 1 application to affected area as needed for Dry Skin. - losartan (COZAAR) 50 mg tablet Take 0.5 tablets by mouth once daily. - OXYGEN, HOME THERAPY, 2.5 L/min by Nasal Cannula route continuous. Use as directred - Disposable Gloves (DISPOSABLE LATEX-FREE GLOVES) [facility] 1 Box once [...] [C34.10] 04/13/2005 (more content not included)... Normal [facility] 36on 11-22-2024 36 VC appt made I need to make chart and mail [employer] packet. Working on getting records scanned in. [facility] DENIA GONZALEZ ([id number]) 1955 F Date Time Provider Department 11/20/24 YOSEPH FALL [facility] During your visit today, we recorded the following information about you: Sukhi Marrero, KAREN 11/20/2024 3:19 PM Signed Rafa RN with [facility] calls to let provider know that [...] Dr. Fall for when returns or if [employer] M[employer]PER[employer] would review. KAREN Barney Mark D, MD 11/23/2024 2:33 PM Signed Does she feel that she still needs an antibiotic? MD Zaki Chopra Kathryn, MA 11/23/2024 2:51 PM Signed Pt states she still feels like she needs an antibiotic, unable to take Levaquin due to medication interaction. Drug [place]. JOS Sandy Mark D, MD 11/24/2024 10:30 AM Signed OK for doxycycline as ordered Yoseph Fall MD Allergies As of Date: 11/20/2024 (No Known Allergies) Date Reviewed: 11/20/2024 Reviewed by: Gregor Fernandez APRN.SHIPPING CHECKER - Fully Assessed Reason for Visit: Patient Update [1234] Visit Diagnosis:Stage 3 severe COPD by GOLD classification ([facility]) [J44.9] Order(s):doxycycline (VIBRA-TABS) 100 mg [...] and supplies as needed - PULSE OXIMETER [facility] Use as directed to check oxygen saturation level - ammonium lactate (AMLACTIN) 12 % lotion Apply 1 application to affected area as needed for Dry Skin. - losartan (COZAAR) 50 mg tablet Take 0.5 tablets by mouth once daily. - OXYGEN, HOME THERAPY, 2.5 L/min by Nasal Cannula route c (more content not included)... Normal [facility]10-[facility] DENIA GONZALEZ ([id number]) 1955 F Date Time Provider Department 11/10/[facility] During your visit today, we recorded [...] RN 11/13/2024 2:10 PM Signed Brenda- nurse- [facility]- phoned to check on pcp reply to message below. Brenda reports when pt was discharged from [facility] she took the prednisone dose prescribed by [facility], and therefor ran out early. Advised [...] Fully Assessed Reason for Visit: Patient Request [1635] Patient Update [9224] Visit Diagnosis:Stage 3 severe COPD by GOLD classification ([facility]) [J44.9] Order(s):predniSONE (DELTASONE) 10 mg [...] directed. Dx: COPD J44.9 - Nebulizer Accessories [facility] Mask and supplies as needed - PULSE OXIMETER [facility] Use as directed to check oxygen saturation level - ammonium lactate (AMLACTIN) 12 % lotion Apply 1 application to affected area as needed for Dry Skin. - losartan (COZAAR) 50 mg tablet Take 0.5 tablets by mouth once daily. - OXYGEN, HOME THERAPY, 2.5 L/min by Nasal Cannula route continuo (more content not included)... Normal [facility] Cardiology Visit Reporton 07 -11-2025 Cardiology Visit Report Normal [facility] CNPNon 10-24-2024 [facility] Telephone ([facility]) DENIA GONZALEZ ([id number]) 1955 F Date Time Provider Department [facility] your visit today, we recorded the [...] swelling. Please call patient back with reply. [phone] KAREN Robledo Mark D, MD 10/24/2024 4:55 PM Signed OK for another 7 days of Levaquin MD Annmarie Chopra Amanda, RN 10/24/2024 5:00 PM Signed Pt called and is notified of providers message and instructions. Pt voices understanding. KAREN Merlos Michelle, RN 10/24/2024 5:30 PM Signed Rafa with [facility] is calling due to pharmacy unable to fill levaquin due to level 1 severe reaction with the multaq patient takes. When this happened when patient was d/c from [facility] hospital the antibitoc was change to cefdinir [...] Fully Assessed Reason for Visit: Patient Request [1104] Order(s):levoFLOXacin (LEVAQUIN) 500 mg tabletTake 1 tablet [...] as needed. - Nebulizer and Compressor For [facility] Use as directed. Dx: COPD J44.9 - Nebulizer Accessories [facility] Mask and supplies as needed - PULSE OXIMETER [facility] Use as directed to check oxygen saturation level - ammonium lactate (AMLACTI (more content not included)... Normal [facility] Telephone ([facility]) DENIA GONZALEZ ([id number]) 1955 F Date Time Provider Department 10/24/24 YOSEPH FALL During your visit today, we recorded the following information about you: Jennifer Hennessy LPN 10/24/2024 4:29 PM Signed Ubaldo with [facility] calls in regard [...] M Robin, RN 10/25/2024 1:21 PM Signed Raaf [facility] reports patient asked him to call [...] directed. Dx: COPD J44.9 - Nebulizer Accessories [facility] Mask and supplies as needed - PULSE OXIMETER [facility] Use as directed to check oxygen saturation level - ammonium lactate (AMLACTIN) 12 % lotion Apply 1 application to affected area as needed for Dry Skin. - losartan (COZAAR) 50 mg tablet Take 0.5 tablets by mouth once daily. - OXYGEN, HOME THERAPY, 2.5 L/min by Nasal Cannula route continuous. Use as directred - Disposable Gloves (DISPOSABLE LATEX-FREE GLOVES) [facility] 1 Box once [...] 10/24/2024 Noted (more content not included)... [facility] DENIA GONZALEZ ([id number]) 1955 F Date Time Provider Department 10/24/24 YOSEPH FALL [facility] During your visit today, we recorded [...] and chronic pain Virtual Visit Clinic location: [facility]- no safety concerns identified by nurse. [...] Fully Assessed Reason for Visit: pall med- [id number] [Other] Initial Consult [665] Prescriptions as of [...] directed. Dx: COPD J44.9 - Nebulizer Accessories [facility] Mask and supplies as needed - PULSE OXIMETER [facility] Use as directed to check oxygen saturation level - ammonium lactate (AMLACTIN) 12 % lotion Apply 1 application to affected area as needed for Dry Skin. - losartan (COZAAR) 50 mg tablet Take 0.5 tablets by mouth once daily. - OXYGEN, HOME THERAPY, 2.5 L/min by Nasal Cannula route continuous. Use as directred - Disposable Gloves (DISPOSABLE LATEX-FREE GLOVES) [facility] 1 Box once [...] as of (more content not included)... Normal [facility] CNPNon 10-23-2024 CNPN Telephone ([facility]) DENIA GONZALEZ ([id number]) 1955 F Date Time Provider Department 10/23/24 YOSEPH FALL [facility] During your visit today, we recorded the following information about you: Magalie Anguiano RN 10/23/2024 1:49 PM Signed Rafa JONES [facility] called in about Pt and states je [...] chronic generalized pain and is on the [place] for it. He states the Pt would like a Palliative care referral for pain and breathing. I told him I don't think they do Palliative care for pain, but for breathing they do. Magalie Anguiano, Yoseph Huerta MD 10/23/2024 2:46 PM Signed OK for Palliative Care consult as requested MD Zaki Cohpra Kathryn, MA 10/23/2024 3:47 PM Signed Rafa notified. Referral faxed, demo, insurance card, OV note, med list faxed to [facility] at [phone] with Palliative Care specified on fax. Naima [...] laterality [M54.40, G89.29] Order(s):CONSULT TO PALLIATIVE CARE [[id number]] Order #: [id number]: 1 FUTURE Prescriptions as of 10/23/2024 - [...] directed. Dx: COPD J44.9 - Nebulizer Accessories [facility] Mask and supplies as needed - PULSE OXIMETER [facility] Use as directed to check oxygen saturation level - ammonium lactate (AMLACTIN) 12 % lotion Apply 1 application to affected area as needed for Dry Skin. - losartan (COZAAR) 50 mg tablet Take 0.5 tablets by mouth once daily. - OXYGEN, HOME THERAPY, 2.5 L/min (more content not included)... [facility] DENIA GONZALEZ ([id number]) 1955 F Date Time Provider Department 10/20/24 [facility] During your visit today, we recorded [...] each ankle area. She has tried contacting [facility] over the past couple of [...] directed. Dx: COPD J44.9 - Nebulizer Accessories [facility] Mask and supplies as needed - PULSE OXIMETER [facility] Use as directed to check oxygen saturation level - ammonium lactate (AMLACTIN) 12 % lotion Apply 1 application to affected area as needed for Dry Skin. - losartan (COZAAR) 50 mg tablet Take 0.5 tablets by mouth once daily. - OXYGEN, HOME THERAPY, 2.5 L/min by Nasal Cannula route continuous. Use as directred - Disposable Gloves (DISPOSABLE LATEX-FREE GLOVES) [facility] 1 Box once every month. ICD 10: M15.9, J44.9, M54.40 - Incontinence Pad, Liner, Disp (POISE PADS) pads Use pads as directed. Dx: N39.46 - COMPOUNDED PRESCRIPTION BLOOD PRESSURE CUFF FOR HOME USE. DX: HYPERTENSION I10. AUTOMATIC CUFF. - (more content not included)... Normal [facility] [place] 10-19-2024 [facility] Telephone ([facility]) DENIA GONZALEZ ([id number]) 1955 F Date Time Provider Department 10/19/24 YOSEPH FALL During your visit today, we recorded the following information about you: Martínez Louie, RN 10/19/2024 1:07 PM Signed Monae- nurse- [facility]- reports she saw patient today. Noted [...] laterality [M54.40, G89.29] Order(s):CONSULT TO PALLIATIVE CARE [[id number]] Order #: [id number]: 1 FUTURE Prescriptions as of 10/20/2024 - [...] directed. Dx: COPD J44.9 - Nebulizer Accessories [facility] Mask and supplies as needed - PULSE OXIMETER [facility] Use as directed to check oxygen saturation level - ammonium lactate (AMLACTIN) 12 % lotion Apply 1 application to affected area as needed for Dry Skin. - losartan (COZAAR) 50 mg tablet Take 0.5 tablets by mouth once daily. - OXYGEN, HOME THERAPY, 2.5 L/min by Nasal Cannula route continuous. Use as directred - Disposable Gloves (DISPOSABLE LATEX-FREE GLOVES) [facility] 1 Box once [...] CANCER [C34.1 (more content not included)... Normal [facility] [place] [facility] DENIA GONZALEZ ([id number]) 1955 F Date Time Provider Department 10/18[facility] During your visit today, we recorded the following information about you: Judy Bliss, RN 10/18/2024 10:51 AM Signed Vilma NICHOLSON calling from [facility] to report plan of care for [...] 1:08 PM Signed Mercedez ZHENG calling from [facility] to report plan of care for [...] directed. Dx: COPD J44.9 - Nebulizer Accessories [facility] Mask and supplies as needed - PULSE OXIMETER [facility] Use as directed to check oxygen saturation level - ammonium lactate (AMLACTIN) 12 % lotion Apply 1 application to affected area as needed for Dry Skin. - losartan (COZAAR) 50 mg tablet Take 0.5 tablets by mouth once daily. - OXYGEN, HOME THERAPY, 2.5 L/min by Nasal Cannula route continuous. Use as directred - Disposable Gloves (DISPOSABLE LATEX-FREE GLOVES) [facility] 1 Box once [...] Date 10/18/2024 (more content not included)... Normal [facility]Non [facility] DEN[facility] GON[facility]ALEZ ([id number]) 1955 F Date Time Provider Department 10/13/24 [facility] During your visit today, we recorded the following information about you: Judy Bliss RN 10/13/2024 4:40 PM Signed Edda from [facility] calls and states that they [...] directed. Dx: COPD J44.9 - Nebulizer Accessories [facility] Mask and supplies as needed - PULSE OXIMETER [facility] Use as directed to check oxygen saturation level - ammonium lactate (AMLACTIN) 12 % lotion Apply 1 application to affected area as needed for Dry Skin. - losartan (COZAAR) 50 mg tablet Take 0.5 tablets by mouth once daily. - OXYGEN, HOME THERAPY, 2.5 L/min by Nasal Cannula route continuous. Use as directred - Disposable Gloves (DISPOSABLE LATEX-FREE GLOVES) [facility] 1 Box once [...] with acute (more content not included)... Normal [facility] Basic Metabolic Profile (BMP )on 10-11-2024 BUN Normal 4-19 [facility] Comment on above: Result Comment: Canc elled via OM: Order cancelled - Patient discharged Performed By: #### L 100.0100, L500.2500 ####[facility] [address] [place], [address] BUN/CRE Normal 10-20 [facility] Comment on above: Result Comment: Canc elled via OM: Order cancelled - Patient discharged Performed By: #### L 100.0100, L500.2500 ####[facility] [address] [place], [address] Calcium Normal 7.6-11.0 [facility] Comment on above: Result Comment: Canc elled via OM: Order cancelled - Patient discharged Performed By: #### L 100.0100, L500.2500 ####[facility] [address] [place], [address] CL Normal 98-108 [facility] Comment on above: Result Comment: Canc elled via OM: Order cancelled - Patient discharged Performed By: #### L 100.0100, L500.2500 ####[facility] [address] [place], [address] CO2 Normal 21.0-32.0 [facility] Comment on above: Result Comment: Canc elled via OM: Order cancelled - Patient discharged Performed By: #### L 100.0100, L500.2500 ####[facility] [address] [place], [address] CREAT,SERUM Normal 0.70-1.20 [facility] Comment on above: Result Comment: Canc elled via OM: Order cancelled - Patient discharged Performed By: #### L 100.0100, L500.2500 ####[facility] [address] [place], [address] eGFR Normal >60 [facility] Comment on above: Result Comment: Canc elled via OM: Order cancelled - Patient discharged Performed By: #### L 100.0100, L500.2500 ####[facility] [address] [place], [address] GAP Normal 5-15 [facility] Comment on above: Result Comment: Canc elled via OM: Order cancelled - Patient discharged Performed By: #### L 100.0100, L500.2500 ####[facility] [address] [place], [address] GLU Normal 70-99 [facility] Comment on above: Result Comment: Canc elled via OM: Order cancelled - Patient discharged Performed By: #### L 100.0100, L500.2500 ####[facility] [address] [place], [address] Potassium Normal 3.3-5.1 [facility] Comment on above: Result Comment: Canc elled via OM: Order cancelled - Patient discharged Performed By: #### L 100.0100, L500.2500 ####[facility] [address] [place], [address] Basic Metabolic Profile (BMP) Normal 133-145 [facility] Comment on above: Result Comment: Canc elled via OM: Order cancelled - Patient discharged Performed By: #### L 100.0100, L500.2500 ####[facility] [address] [place], [address] CBC W/Diff, Automatedon 09-24 Absolute Neut Normal 2.0-7.7 [facility] Comment on above: Result Comment: Canc elled via OM: Order cancelled - Patient discharged Performed By: #### L 100.0100, L500.2500 ####[facility] [address] [place], [address] HCT Normal 37-47 [facility] Comment on above: Result Comment: Canc elled via OM: Order cancelled - Patient discharged Performed By: #### L 100.0100, L500.2500 ####[facility] [address] [place], [address] HGB Normal 12.0-15.0 [facility] Comment on above: Result Comment: Canc elled via OM: Order cancelled - Patient discharged Performed By: #### L 100.0100, L500.2500 ####[facility] [address] [place], [address] MCH Normal 27.0-32.0 [facility] Comment on above: Result Comment: Canc elled via OM: Order cancelled - Patient discharged Performed By: #### L 100.0100, L500.2500 ####[facility] [address] [place], [address] MCHC Normal 32-36 [facility] Comment on above: Result Comment: Canc elled via OM: Order cancelled - Patient discharged Performed By: #### L 100.0100, L500.2500 ####[facility] [address] [place], [address] MCV Normal 81-99 [facility] Comment on above: Result Comment: Canc elled via OM: Order cancelled - Patient discharged Performed By: #### L 100.0100, L500.2500 ####[facility] [address] [place], [address] NEUT% Normal 47-70 [facility] Comment on above: Result Comment: Canc elled via OM: Order cancelled - Patient discharged Performed By: #### L 100.0100, L500.2500 ####[facility] [address] [place], [address] PLT Normal 150-450 [facility] Comment on above: Result Comment: Canc elled via OM: Order cancelled - Patient discharged Performed By: #### L 100.0100, L500.2500 ####[facility] [address] [place], [address] RBC Normal 4.2-5.4 [facility] Comment on above: Result Comment: Canc elled via OM: Order cancelled - Patient discharged Performed By: #### L 100.0100, L500.2500 ####[facility] [address] [place], [address] RDW CV Normal 11.6-14.6 [facility] Comment on above: Result Comment: Canc elled via OM: Order cancelled - Patient discharged Performed By: #### L 100.0100, L500.2500 ####[facility] [address] [place], [address] RDW SD Normal 35.1-43.9 [facility] Comment on above: Result Comment: Canc elled via OM: Order cancelled - Patient discharged Performed By: #### L 100.0100, L500.2500 ####[facility] [address] [place], [address] WBC Normal 4.4-11.0 [facility] Comment on above: Result Comment: Canc elled via OM: Order cancelled - Patient discharged Performed By: #### L 100.0100, L500.2500 ####[facility] [address] [place], [address] Basic Metabolic Profile (BMP )on 10-10-2024 BUN Normal 4-19 [facility] Comment on above: Result Comment: Canc elled via OM: Order cancelled - Patient discharged Performed By: #### L 100.0100, L500.2500 ####[facility] [address] [place], [address] BUN/CRE Normal 10-20 [facility] Comment on above: Result Comment: Canc elled via OM: Order cancelled - Patient discharged Performed By: #### L 100.0100, L500.2500 ####[facility] [address] [place], [address] Calcium Normal 7.6-11.0 [facility] Comment on above: Result Comment: Canc elled via OM: Order cancelled - Patient discharged Performed By: #### L 100.0100, L500.2500 ####[facility] [address] [place], [address] CL Normal 98-108 [facility] Comment on above: Result Comment: Canc elled via OM: Order cancelled - Patient discharged Performed By: #### L 100.0100, L500.2500 ####[facility] [address] [place], [address] CO2 Normal 21.0-32.0 [facility] Comment on above: Result Comment: Canc elled via OM: Order cancelled - Patient discharged Performed By: #### L 100.0100, L500.2500 ####[facility] [address] [place], [address] CREAT,SERUM Normal 0.70-1.20 [facility] Comment on above: Result Comment: Canc elled via OM: Order cancelled - Patient discharged Performed By: #### L 100.0100, L500.2500 ####[facility] [address] [place], [address] eGFR Normal >60 [facility] Comment on above: Result Comment: Canc elled via OM: Order cancelled - Patient discharged Performed By: #### L 100.0100, L500.2500 ####[facility] [address] [place], [address] GAP Normal 5-15 [facility] Comment on above: Result Comment: Canc elled via OM: Order cancelled - Patient discharged Performed By: #### L 100.0100, L500.2500 ####[facility] [address] [place], [address] GLU Normal 70-99 [facility] Comment on above: Result Comment: Canc elled via OM: Order cancelled - Patient discharged Performed By: #### L 100.0100, L500.2500 ####[facility] [address] [place], [address] Potassium Normal 3.3-5.1 [facility] Comment on above: Result Comment: Canc elled via OM: Order cancelled - Patient discharged Performed By: #### L 100.0100, L500.2500 ####[facility] [address] [place], [address] Basic Metabolic Profile (BMP) Normal 133-145 [facility] Comment on above: Result Comment: Canc elled via OM: Order cancelled - Patient discharged Performed By: #### L 100.0100, L500.2500 ####[facility] [address] [place], [address] CBC W/Diff, Automatedon - Absolute Neut Normal 2.0-7.7 [facility] Comment on above: Result Comment: Canc elled via OM: Order cancelled - Patient discharged Performed By: #### L 100.0100, L500.2500 ####[facility] [address] [place], [address] HCT Normal 37-47 [facility] Comment on above: Result Comment: Canc elled via OM: Order cancelled - Patient discharged Performed By: #### L 100.0100, L500.2500 ####[facility] [address] [place], [address] HGB Normal 12.0-15.0 [facility] Comment on above: Result Comment: Canc elled via OM: Order cancelled - Patient discharged Performed By: #### L 100.0100, L500.2500 ####[facility] [address] [place], [address] MCH Normal 27.0-32.0 [facility] Comment on above: Result Comment: Canc elled via OM: Order cancelled - Patient discharged Performed By: #### L 100.0100, L500.2500 ####[facility] [address] [place], [address] MCHC Normal 32-36 [facility] Comment on above: Result Comment: Canc elled via OM: Order cancelled - Patient discharged Performed By: #### L 100.0100, L500.2500 ####[facility] [address] [place], [address] MCV Normal 81-99 [facility] Comment on above: Result Comment: Canc elled via OM: Order cancelled - Patient discharged Performed By: #### L 100.0100, L500.2500 ####[facility] [address] [place], [address] NEUT% Normal 47-70 [facility] Comment on above: Result Comment: Canc elled via OM: Order cancelled - Patient discharged Performed By: #### L 100.0100, L500.2500 ####[facility] [address] [place], [address] PLT Normal 150-450 [facility] Comment on above: Result Comment: Canc elled via OM: Order cancelled - Patient discharged Performed By: #### L 100.0100, L500.2500 ####[facility] [address] [place], [address] RBC Normal 4.2-5.4 [facility] Comment on above: Result Comment: Canc elled via OM: Order cancelled - Patient discharged Performed By: #### L 100.0100, L500.2500 ####[facility] [address] [place], [address] RDW CV Normal 11.6-14.6 [facility] Comment on above: Result Comment: Canc elled via OM: Order cancelled - Patient discharged Performed By: #### L 100.0100, L500.2500 ####[facility] [address] [place], [address] RDW SD Normal 35.1-43.9 [facility] Comment on above: Result Comment: Canc elled via OM: Order cancelled - Patient discharged Performed By: #### L 100.0100, L500.2500 ####[facility] [address] [place], [address] WBC Normal 4.4-11.0 [facility] Comment on above: Result Comment: Canc elled via OM: Order cancelled - Patient discharged Performed By: #### L 100.0100, L500.2500 ####[facility] [address] [place], [address] [facility] DENIA GONZALEZ ([id number]) 1955 F Date Time Provider Department 10/10/24 YOSEPH FALL [facility] During your visit today, we recorded the following information about you: Martínez Louie, RN 10/10/2024 4:34 PM Signed [facility]- reports he did start of care [...] Coreg and inhalers; will monitor MD Zaki Chpora Kathryn, MA 10/10/2024 4:46 PM Signed Detailed message left on Rafa's identified VM. Naima Haines MA Allergies As of Date: 10/10/2024 (No Known Allergies) Date Reviewed: 07/06/2024 Reviewed by: Martha Baca MA - Fully Assessed Reason for Visit: [facility] patient update [Other] Prescriptions as of [...] directed. Dx: COPD J44.9 - Nebulizer Accessories [facility] Mask and supplies as needed - PULSE OXIMETER [facility] Use as directed to check oxygen saturation level - ammonium lactate (AMLACTIN) 12 % lotion Apply 1 application to affected area as needed for Dry Skin. - losartan (COZAAR) 50 mg tablet Take 0.5 tablets by mouth once daily. - OXYGEN, HOME THERAPY, 2.5 L/min by Nasal Cannula route continuous. Use as directred - Disposable Gloves (DISPOSABLE LATEX-FREE GLOVES) [facility] 1 Box once [...] HPV [ (more content not included)... Normal [facility] Absolute lymphocyte countOrd ered By: Lynne Schafer on 10-09-2024 Lymphocytes Auto (Unsp spec) [#/Vol] 0.67 10*3/uL Low 0.83-4.51 [facility] Absolute neutrophil countOrd ered By: Lynne Schafer on 10-09-2024 Neutrophils (Bld) [#/Vol] 8.4 10*3/uL High 2.0-7.7 [facility] Anion gap in Serum or Plasma Ordered By: Lynne Schafer on 10-09-2024 Anion gap [Moles/Vol] 5 mmol/L 5-15 [facility] Automated lymphocyte count a s percentage of total leukocytesOrdered By: Lynne Schafer on 10-09-2024 Lymphocytes/100 WBC Auto (Unsp spec) 6.9 % Low 19-41 [facility] BUN/creatinine ratioOrdered By: Lynne Schafer on 10-09-2024 Urea nitrogen/Creatinine [Mass ratio] 38.0 mg/mg High 10-20 [facility] Basic Metabolic Profile (BMP )on 10-09-2024 BUN/CRE 38.0 RATIO High 10- [facility] Comment on above: Performed By: #### L 100.0100, L500.2500 ####[facility] [address] [place], [address] Calcium [Mass/Vol] 8.4 mg/dL Normal 7.6-11.0 [facility] Comment on above: Performed By: #### L 100.0100, L500.2500 ####[facility] [address] [place], [address] Chloride [Moles/Vol] 93 mmol/L Low 98-108 [facility] Comment on above: Performed By: #### L 100.0100, L500.2500 ####[facility] [address] [place], [address] CO2 [Moles/Vol] 40.4 mmol/L High 21.0-32.0 [facility] Comment on above: Performed By: #### L 100.0100, L500.2500 ####[facility] [address] [place], [address] Creatinine [Mass/Vol] 0.44 mg/dL Low 0.70-1.20 [facility] Comment on above: Performed By: #### L 100.0100, L500.2500 ####[facility] [address] [place], [address] ECRCL 63.35 ml/min Normal 50-250 [facility] Comment on above: Performed By: #### L 100.0100, L500.2500 ####[facility] [address] [place], [address] GAP 5 Normal 5-15 [facility] Comment on above: Performed By: #### L 100.0100, L500.2500 ####[facility] [address] [place], [address] GFR/1.73 sq M.predicted among non-blacks MDRD (S/P/Bld) [Vol rate/Area] 105 mL/min/{1.73_m2} Normal >60 [facility] Comment on above: Result Comment: mL/m in/1.73m2 CKD-EPI Creatinine Equation (2020) Performed By: #### L 100.0100, L500.2500 ####[facility] [address] [place], [address] Glucose [Mass/Vol] 113 mg/dL High 70-99 [facility] Comment on above: Performed By: #### L 100.0100, L500.2500 ####[facility] [address] [place], [address] Potassium [Moles/Vol] 4.9 mmol/L Normal 3.3-5.1 [facility] Comment on above: Result Comment: Hemo lysis present, Results??could be affected.?? Performed By: #### L 100.0100, L500.2500 ####[facility] [address] [place], [address] Sodium [Moles/Vol] 139 mmol/L Normal 133-145 [facility] Comment on above: Performed By: #### L 100.0100, L500.2500 ####[facility] [address] [place], [address] Urea nitrogen [Mass/Vol] 17 mg/dL Normal 4-19 [facility] Comment on above: Performed By: #### L 100.0100, L500.2500 ####[facility] [address] [place], [address] Basophil percentageOrdered B y: Lynne Schafer on 10-09-2024 Basophils/100 WBC (Bld) 0.1 % 0-1 [facility] CBC W/Diff, Automatedon 09-24 Absolute Lymph 0.67 X10 3/uL Low 0.83-4.51 [facility] Comment on above: Performed By: #### L 100.0100, L500.2500 ####[facility] [address] [place], [address] Absolute Neut 8.4 X10 3/uL High 2.0-7.7 [facility] Comment on above: Performed By: #### L 100.0100, L500.2500 ####[facility] [address] [place], [address] Basophils/100 WBC (Bld) 0.1 % Normal 0-1 [facility] Comment on above: Performed By: #### L 100.0100, L500.2500 ####[facility] [address] [place], [address] Eosinophils/100 WBC (Bld) 0.0 % Normal 0-5 [facility] Comment on above: Performed By: #### L 100.0100, L500.2500 ####[facility] [address] [place], [address] Erythrocyte distribution width (RBC) [Ratio] 13.1 % Normal 11.6-14.6 [facility] Comment on above: Performed By: #### L 100.0100, L500.2500 ####[facility] [address] [place], [address] Hematocrit (Bld) [Volume fraction] 41.6 % Normal 37-47 [facility] Comment on above: Performed By: #### L 100.0100, L500.2500 ####[facility] [address] [place], [address] Hemoglobin (Bld) [Mass/Vol] 13.5 g/dL Normal 12.0-15.0 [facility] Comment on above: Performed By: #### L 100.0100, L500.2500 ####[facility] [address] [place], [address] IG% 0.800 Normal 0.0-0.9 [facility] Comment on above: Result Comment: IG% - Immature Granulocytes (promyelocytes, myelocytes andmetamyelocytes) > 1% indicates that a LEFT SHIFT is Present. Performed By: #### L 100.0100, L500.2500 ####[facility] [address] [place], [address] Lymphocytes/100 WBC (Bld) 6.9 % Low 19-41 [facility] Comment on above: Performed By: #### L 100.0100, L500.2500 ####[facility] [address] [place], [address] MCH (RBC) [Entitic mass] 27.9 pg Normal 27.0-32.0 [facility] Comment on above: Performed By: #### L 100.0100, L500.2500 ####[facility] [address] [place], [address] MCHC (RBC) [Mass/Vol] 32.5 g/dL Normal 32-36 [facility] Comment on above: Performed By: #### L 100.0100, L500.2500 ####[facility] [address] [place], [address] MCV (RBC) [Entitic vol] 86.0 fL Normal 81-99 [facility] Comment on above: Performed By: #### L 100.0100, L500.2500 ####[facility] [address] [place], [address] Monocytes/100 WBC (Bld) 5.3 % Normal 0-10 [facility] Comment on above: Performed By: #### L 100.0100, L500.2500 ####[facility] [address] [place], [address] Neutrophils/100 WBC (Bld) 86.9 % High 47-70 [facility] Comment on above: Performed By: #### L 100.0100, L500.2500 ####[facility] [address] [place], [address] Nucleated RBC (Bld) [#/Vol] 0 10*3/uL Normal 0-5 [facility] Comment on above: Performed By: #### L 100.0100, L500.2500 ####[facility] [address] [place], [address] Platelet mean volume (Bld) [Entitic vol] 10.0 fL Normal 6.2-12.0 [facility] Comment on above: Performed By: #### L 100.0100, L500.2500 ####[facility] [address] [place], [address] Platelets (Bld) [#/Vol] 181 10*3/uL Normal 150-450 [facility] Comment on above: Performed By: #### L 100.0100, L500.2500 ####[facility] [address] [place], [address] RBC (Bld) [#/Vol] 4.84 10*6/uL Normal 4.2-5.4 [facility] Comment on above: Performed By: #### L 100.0100, L500.2500 ####[facility] [address] [place], [address] RDW SD 41.1 fl Normal 35.1-43.9 [facility] Comment on above: Performed By: #### L 100.0100, L500.2500 ####[facility] [address] [place], [address] WBC (Bld) [#/Vol] 9.7 10*3/uL Normal 4.4-11.0 [facility] Comment on above: Performed By: #### L 100.0100, L500.2500 ####[facility] [address] [place], [address] CNPNon 10-09-2024 [facility] Telephone ([facility]) DENIA GONZALEZ ([id number]) 1955 F Date Time Provider Department 10/09/24 [facility] During your visit today, we recorded the following information about you: Magalie Anguiano, KAREN 10/09/2024 7:28 PM Signed Pt's significant other Mike called in and reports Pt was in the hospital for 11 days and released about an hour and a half ago. He states [facility] in [place] doesn't have the Multaq in stock, but [...] PM Signed They may wait until [facility] can get the Multaq tomorrow MD Zaki [...] as needed. - Nebulizer and Compressor For [facility] Use as directed. Dx: COPD J44.9 - Nebulizer Accessories [facility] Mask and supplies as needed - PULSE OXIMETER [facility] Use as directed to check oxygen saturation level - ammonium lactate (AMLACTIN) 12 % lotion Apply 1 application to affected area as needed for Dry Skin. - losartan (COZAAR) 50 mg tablet Take 0.5 tablets by mouth once daily. - OXYGEN, HOME THERAPY, 2.5 L/min by Nasal Cannula route continuous. Use as directred - Disposable Gloves (DISPOSABLE LATEX-FREE GLOVES) [facility] 1 Box once every month. ICD 10: M15.9, J44.9, M54.40 - Incontinence Pad, Liner, Disp (POISE PADS) pads Use pads as directed. Dx: N39.46 - COMPOUNDED PRESCRIPTION BLOOD PRESSURE CUFF FOR HOME USE. DX: HYPERTENSION I10. AUTOMATIC CU (more content not included)... Normal [facility] Telephone ([facility]) DENIA GONZALEZ ([id number]) 1955 F Date Time Provider Department 10/09/24 YOSEPH FALL During your visit today, we recorded the following information about you: Sukhi Marrero RN 10/09/2024 3:10 PM Signed Iman with [facility] HH calls to ask if provider will follow their HH orders for SN, PT, OT. Patient discharging home today from [facility] after being treated for COPD exacerbation and new onset A-fib. Please call Iman back at [phone]. KAREN Barney Mark D, MD 10/09/2024 3:54 [...] directed. Dx: COPD J44.9 - Nebulizer Accessories [facility] Mask and supplies as needed - PULSE OXIMETER [facility] Use as directed to check oxygen saturation level - ammonium lactate (AMLACTIN) 12 % lotion Apply 1 application to affected area as needed for Dry Skin. - losartan (COZAAR) 50 mg tablet Take 0.5 tablets by mouth once daily. - OXYGEN, HOME THERAPY, 2.5 L/min by Nasal Cannula route continuous. Use as directred - Disposable Gloves (DISPOSABLE LATEX-FREE GLOVES) [facility] 1 Box once [...] *02/20/2022 [facility] (more content not included)... [facility] DEN[facility] GON[facility]ALE[facility] ([id number]) 1955 F Date Time Provider Department 10/09/24 YOSEPH FALL [facility] During your visit today, we recorded the following information about you: Padmini Abbott RN 10/09/2024 8:40 AM Signed Palma Silvio with [facility] calling to update provider that patient has been at [facility] since 09/29/24. KAREN Robledo Mark D, [...] directed. Dx: COPD J44.9 - Nebulizer Accessories [facility] Mask and supplies as needed - PULSE OXIMETER [facility] Use as directed to check oxygen saturation level - ammonium lactate (AMLACTIN) 12 % lotion Apply 1 application to affected area as needed for Dry Skin. - losartan (COZAAR) 50 mg tablet Take 0.5 tablets by mouth once daily. - OXYGEN, HOME THERAPY, 2.5 L/min by Nasal Cannula route continuous. Use as directred - Disposable Gloves (DISPOSABLE LATEX-FREE GLOVES) [facility] 1 Box once [...] Status:Closed by YOSEPH FALL on 10/09/24 Normal [facility] Carbon dioxide, total [Moles /volume] in Central venous bloodOrdered By: Lynne Schafer on 10-09-2024 CO2 [Moles/Vol] 40.4 mmol/L High 21.0-32.0 [facility] Chloride assayOrdered By: Na na Gilmar on 10-09-2024 Chloride [Moles/Vol] 93 mmol/L Low 98-108 [facility] Discharge Instructionon 09-24 Discharge Instruction Normal [facility] Eosinophil percentageOrdered By: Lynne Schafer on 10-09-2024 Eosinophils/100 WBC (Bld) 0.0 % 0-5 [facility] Erythrocyte distribution wid th ratioOrdered By: Lynne Schafer on 10-09-2024 Erythrocyte distribution width (RBC) [Ratio] 13.1 % 11.6-14.6 [facility] Erythrocyte distribution wid th standard deviationOrdered By: Lynne Schafer on 10-09-2024 Erythrocyte distribution width (RBC) [Ratio] 41.1 fl 35.1-43.9 [facility] Glomerular filtration rate ( GFR) estimation/1.73 sq m using serum, plasma, or whole bOrdered By: Lynne Schafer on 10-09-2024 GFR/1.73 sq M.predicted among non-blacks MDRD (S/P/Bld) [Vol rate/Area] 105 mL/min/{1.73_m2} >60 [facility] Comment on above: mL/min/1.73m2 CKD-EP I Creatinine Equation (2020) Hematocrit Auto (Bld) [Volum e fraction]Ordered By: Lynne Schafer on 10-09-2024 Hematocrit (Bld) [Volume fraction] 41.6 % 37-47 [facility] Hemoglobin measurementOrdere d By: Lynne Schafer on 10-09-2024 Hemoglobin (Bld) [Mass/Vol] 13.5 g/dL 12.0-15.0 [facility] Immature granulocytes/100 WB C Auto (Bld)Ordered By: Lynne Schafer 10-09-2024 Immature granulocytes/100 WBC (Bld) 0.800 % 0.0-0.9 [facility] Comment on above: IG% - Immature Granu locytes (promyelocytes, myelocytes and metamyelocytes) > 1% indicates that a LEFT SHIFT is Present. MCV (mean corpuscular volume ) determinationOrdered By: Lynne Schafer on 10-09-2024 MCV (RBC) [Entitic vol] 86.0 fL 81-99 [facility] Mean corpuscular hemoglobin (MCH) determinationOrdered By: Lynne Schafer 10-09-2024 MCH (RBC) [Entitic mass] 27.9 pg 27.0-32.0 [facility] Mean corpuscular hemoglobin concentration (MCHC) determinationOrdered By: Lynne Schafer 10-09-2024 MCHC (RBC) [Mass/Vol] 32.5 g/dL 32-36 [facility] Mean platelet volume determi nationOrdered By: Lynne Schafer 10-09-2024 Platelet mean volume (Bld) [Entitic vol] 10.0 fL 6.2-12.0 [facility] Monocyte percentageOrdered B y: Lynne Schafer on 06-16-2025 Monocytes/100 WBC (Bld) 5.3 % 0-10 [facility] Neutrophil percentageOrdered By: Lynne Schafer on 10-09-2024 Neutrophils/100 WBC (Bld) 86.9 % High 47-70 [facility] Nucleated red blood cell per centageOrdered By: Lynne Schafer on 10-09-2024 Nucleated RBC/100 WBC (Bld) [Ratio] 0 % 0-5 [facility] Platelet countOrdered By: Belkys Schafer on 10-09-2024 Platelets (Bld) [#/Vol] 181 10*3/uL 150-450 [facility] Potassium measurement (mass/ volume)Ordered By: Lynne Schafer on 10-09-2024 Potassium (Unsp spec) [Mass/Vol] 4.9 mmol/L 3.3-5.1 [facility] Comment on above: Hemolysis present, R esults could be affected. RBC Auto (Bld) [#/Vol]Ordere d By: Lynne Schafer on 10-09-2024 RBC (Bld) [#/Vol] 4.84 10*6/uL 4.2-5.4 [facility] Serum creatinine measurement (mass/volume)Ordered By: Lynne Schafer on 10-09-2024 Creatinine [Mass/Vol] 0.44 mg/dL Low 0.70-1.20 [facility] Serum glucose measurement (m ass/volume)Ordered By: Lynne Schafer on 10-09-2024 Glucose [Mass/Vol] 113 mg/dL High 70-99 [facility] Serum or plasma calcium kadi urement (mass/volume)Ordered By: Lynne Schafer on 10-09-2024 Calcium [Mass/Vol] 8.4 mg/dL 7.6-11.0 [facility] Serum or plasma urea nitroge n measurement (mass/volume)Ordered By: Lynne Schafer on 10-09-2024 Urea nitrogen [Mass/Vol] 17 mg/dL 4-19 [facility] Sodium levelOrdered By: Lynne Schafer on 10-09-2024 Sodium [Moles/Vol] 139 mmol/L 133-145 [facility] White blood cell (WBC) count Ordered By: Lynne Schafer on 10-09-2024 WBC (Bld) [#/Vol] 9.7 10*3/uL 4.4-11.0 [facility] 12 Lead EKGon 10-08-2024 12 Lead EKG Normal [facility] Basic Metabolic Profile (BMP )on 10-08-2024 BUN/CRE 34.4 RATIO High 10-20 [facility] Comment on above: Performed By: #### L 100.0100, L500.2500 ####[facility] [address] [place], [address] Calcium [Mass/Vol] 8.1 mg/dL Normal 7.6-11.0 [facility] Comment on above: Performed By: #### L 100.0100, L500.2500 ####[facility] [address] [place], [address] Chloride [Moles/Vol] 92 mmol/L Low 98-108 [facility] Comment on above: Performed By: #### L 100.0100, L500.2500 ####[facility] [address] [place], [address] CO2 [Moles/Vol] 38.6 mmol/L High 21.0-32.0 [facility] Comment on above: Performed By: #### L 100.0100, L500.2500 ####[facility] [address] [place], [address] Creatinine [Mass/Vol] 0.51 mg/dL Low 0.70-1.20 [facility] Comment on above: Performed By: #### L 100.0100, L500.2500 ####[facility] [address] [place], [address] ECRCL 64.27 ml/min Normal 50-250 [facility] Comment on above: Performed By: #### L 100.0100, L500.2500 ####[facility] [address] [place], [address] GAP 7 Normal 5-15 [facility] Comment on above: Performed By: #### L 100.0100, L500.2500 ####[facility] [address] [place], [address] GFR/1.73 sq M.predicted among non-blacks MDRD (S/P/Bld) [Vol rate/Area] 101 mL/min/{1.73_m2} Normal >60 [facility] Comment on above: Result Comment: mL/m in/1.73m2 CKD-EPI Creatinine Equation (2020) Performed By: #### L 100.0100, L500.2500 ####[facility] [address] [place], [address] Glucose [Mass/Vol] 179 mg/dL High 70-99 [facility] Comment on above: Performed By: #### L 100.0100, L500.2500 ####[facility] [address] [place], [address] Potassium [Moles/Vol] 4.6 mmol/L Normal 3.3-5.1 [facility] Comment on above: Performed By: #### L 100.0100, L500.2500 ####[facility] [address] [place], [address] Sodium [Moles/Vol] 138 mmol/L Normal 133-145 [facility] Comment on above: Performed By: #### L 100.0100, L500.2500 ####[facility] [address] [place], [address] Urea nitrogen [Mass/Vol] 18 mg/dL Normal 4-19 [facility] Comment on above: Performed By: #### L 100.0100, L500.2500 ####[facility] [address] [place], [address] CBC W/Diff, Automatedon 06-1 Absolute Lymph 0.41 X10 3/uL Low 0.83-4.51 [facility] Comment on above: Performed By: #### L 100.0100, L500.2500 ####[facility] [address] [place], [address] Absolute Neut 7.2 X10 3/uL Normal 2.0-7.7 [facility] Comment on above: Performed By: #### L 100.0100, L500.2500 ####[facility] [address] [place], [address] Basophils/100 WBC (Bld) 0.2 % Normal 0-1 [facility] Comment on above: Performed By: #### L 100.0100, L500.2500 ####[facility] [address] [place], [address] Eosinophils/100 WBC (Bld) 0.0 % Normal 0-5 [facility] Comment on above: Performed By: #### L 100.0100, L500.2500 ####[facility] [address] [place], [address] Erythrocyte distribution width (RBC) [Ratio] 13.0 % Normal 11.6-14.6 [facility] Comment on above: Performed By: #### L 100.0100, L500.2500 ####[facility] [address] [place], [address] Hematocrit (Bld) [Volume fraction] 41.6 % Normal 37-47 [facility] Comment on above: Performed By: #### L 100.0100, L500.2500 ####[facility] [address] [place], [address] Hemoglobin (Bld) [Mass/Vol] 13.2 g/dL Normal 12.0-15.0 [facility] Comment on above: Performed By: #### L 100.0100, L500.2500 ####[facility] [address] [place], [address] IG% 0.900 Normal 0.0-0.9 [facility] Comment on above: Result Comment: IG% - Immature Granulocytes (promyelocytes, myelocytes andmetamyelocytes) > 1% indicates that a LEFT SHIFT is Present. Performed By: #### L 100.0100, L500.2500 ####[facility] [address] [place], [address] Lymphocytes/100 WBC (Bld) 5.1 % Low 19-41 [facility] Comment on above: Performed By: #### L 100.0100, L500.2500 ####[facility] [address] [place], [address] MCH (RBC) [Entitic mass] 27.3 pg Normal 27.0-32.0 [facility] Comment on above: Performed By: #### L 100.0100, L500.2500 ####[facility] [address] [place], [address] MCHC (RBC) [Mass/Vol] 31.7 g/dL Low 32-36 [facility] Comment on above: Performed By: #### L 100.0100, L500.2500 ####[facility] [address] [place], [address] MCV (RBC) [Entitic vol] 86.1 fL Normal 81-99 [facility] Comment on above: Performed By: #### L 100.0100, L500.2500 ####[facility] [address] [place], [address] Monocytes/100 WBC (Bld) 4.7 % Normal 0-10 [facility] Comment on above: Performed By: #### L 100.0100, L500.2500 ####[facility] [address] [place], [address] Neutrophils/100 WBC (Bld) 89.1 % High 47-70 [facility] Comment on above: Performed By: #### L 100.0100, L500.2500 ####[facility] [address] [place], [address] Nucleated RBC (Bld) [#/Vol] 0 10*3/uL Normal 0-5 [facility] Comment on above: Performed By: #### L 100.0100, L500.2500 ####[facility] [address] [place], [address] Platelet mean volume (Bld) [Entitic vol] 10.0 fL Normal 6.2-12.0 [facility] Comment on above: Performed By: #### L 100.0100, L500.2500 ####[facility] [address] [place], [address] Platelets (Bld) [#/Vol] 168 10*3/uL Normal 150-450 [facility] Comment on above: Performed By: #### L 100.0100, L500.2500 ####[facility] [address] [place], [address] RBC (Bld) [#/Vol] 4.83 10*6/uL Normal 4.2-5.4 [facility] Comment on above: Performed By: #### L 100.0100, L500.2500 ####[facility] [address] [place], [address] RDW SD 40.7 fl Normal 35.1-43.9 [facility] Comment on above: Performed By: #### L 100.0100, L500.2500 ####[facility] [address] [place], [address] WBC (Bld) [#/Vol] 8.1 10*3/uL Normal 4.4-11.0 [facility] Comment on above: Performed By: #### L 100.0100, L500.2500 ####[facility] [address] [place], [address] Basic Metabolic Profile (BMP )on 10-07-2024 BUN/CRE 37.1 RATIO High 10-20 [facility] Comment on above: Performed By: #### L 500.2500, L100.0100 ####[facility] [address] [place], [address] Calcium [Mass/Vol] 8.1 mg/dL Normal 7.6-11.0 [facility] Comment on above: Performed By: #### L 500.2500, L100.0100 ####[facility] [address] [place], [address] Chloride [Moles/Vol] 93 mmol/L Low 98-108 [facility] Comment on above: Performed By: #### L 500.2500, L100.0100 ####[facility] [address] [place], [address] CO2 [Moles/Vol] 38.2 mmol/L High 21.0-32.0 [facility] Comment on above: Performed By: #### L 500.2500, L100.0100 ####[facility] [address] [place], [address] Creatinine [Mass/Vol] 0.50 mg/dL Low 0.70-1.20 [facility] Comment on above: Performed By: #### L 500.2500, L100.0100 ####[facility] [address] [place], [address] ECRCL 63.81 ml/min Normal 50-250 [facility] Comment on above: Performed By: #### L 500.2500, L100.0100 ####[facility] [address] [place], [address] GAP 6 Normal 5-15 [facility] Comment on above: Performed By: #### L 500.2500, L100.0100 ####[facility] [address] [place], [address] GFR/1.73 sq M.predicted among non-blacks MDRD (S/P/Bld) [Vol rate/Area] 101 mL/min/{1.73_m2} Normal >60 [facility] Comment on above: Result Comment: mL/m in/1.73m2 CKD-EPI Creatinine Equation (2020) Performed By: #### L 500.2500, L100.0100 ####[facility] [address] [place], [address] Glucose [Mass/Vol] 192 mg/dL High 70-99 [facility] Comment on above: Performed By: #### L 500.2500, L100.0100 ####[facility] [address] [place], [address] Potassium [Moles/Vol] 4.8 mmol/L Normal 3.3-5.1 [facility] Comment on above: Result Comment: Hemo lysis present, Results??could be affected.?? Performed By: #### L 500.2500, L100.0100 ####[facility] [address] [place], [address] Sodium [Moles/Vol] 137 mmol/L Normal 133-145 [facility] Comment on above: Performed By: #### L 500.2500, L100.0100 ####[facility] [address] [place], [address] Urea nitrogen [Mass/Vol] 19 mg/dL Normal 4-19 [facility] Comment on above: Performed By: #### L 500.2500, L100.0100 ####[facility] [address] [place], [address] CBC W/Diff, Automatedon 06- Absolute Lymph 0.39 X10 3/uL Low 0.83-4.51 [facility] Comment on above: Performed By: #### L 500.2500, L100.0100 ####[facility] [address] [place], [address] Absolute Neut 8.0 X10 3/uL High 2.0-7.7 [facility] Comment on above: Performed By: #### L 500.2500, L100.0100 ####[facility] [address] [place], [address] Basophils/100 WBC (Bld) 0.2 % Normal 0-1 [facility] Comment on above: Performed By: #### L 500.2500, L100.0100 ####[facility] [address] [place], [address] Eosinophils/100 WBC (Bld) 0.0 % Normal 0-5 [facility] Comment on above: Performed By: #### L 500.2500, L100.0100 ####[facility] [address] [place], [address] Erythrocyte distribution width (RBC) [Ratio] 13.0 % Normal 11.6-14.6 [facility] Comment on above: Performed By: #### L 500.2500, L100.0100 ####[facility] [address] [place], [address] Hematocrit (Bld) [Volume fraction] 41.4 % Normal 37-47 [facility] Comment on above: Performed By: #### L 500.2500, L100.0100 ####[facility] [address] [place], [address] Hemoglobin (Bld) [Mass/Vol] 13.5 g/dL Normal 12.0-15.0 [facility] Comment on above: Performed By: #### L 500.2500, L100.0100 ####[facility] [address] [place], [address] IG% 0.900 Normal 0.0-0.9 [facility] Comment on above: Result Comment: IG% - Immature Granulocytes (promyelocytes, myelocytes andmetamyelocytes) > 1% indicates that a LEFT SHIFT is Present. Performed By: #### L 500.2500, L100.0100 ####[facility] [address] [place], [address] Lymphocytes/100 WBC (Bld) 4.3 % Low 19-41 [facility] Comment on above: Performed By: #### L 500.2500, L100.0100 ####[facility] [address] [place], [address] MCH (RBC) [Entitic mass] 28.2 pg Normal 27.0-32.0 [facility] Comment on above: Performed By: #### L 500.2500, L100.0100 ####[facility] [address] [place], [address] MCHC (RBC) [Mass/Vol] 32.6 g/dL Normal 32-36 [facility] Comment on above: Performed By: #### L 500.2500, L100.0100 ####[facility] [address] [place], [address] MCV (RBC) [Entitic vol] 86.6 fL Normal 81-99 [facility] Comment on above: Performed By: #### L 500.2500, L100.0100 ####[facility] [address] [place], [address] Monocytes/100 WBC (Bld) 5.4 % Normal 0-10 [facility] Comment on above: Performed By: #### L 500.2500, L100.0100 ####[facility] [address] [place], [address] Neutrophils/100 WBC (Bld) 89.2 % High 47-70 [facility] Comment on above: Performed By: #### L 500.2500, L100.0100 ####[facility] [address] [place], [address] Nucleated RBC (Bld) [#/Vol] 0 10*3/uL Normal 0-5 [facility] Comment on above: Performed By: #### L 500.2500, L100.0100 ####[facility] [address] [place], [address] Platelet mean volume (Bld) [Entitic vol] 9.9 fL Normal 6.2-12.0 [facility] Comment on above: Performed By: #### L 500.2500, L100.0100 ####[facility] [address] [place], [address] Platelets (Bld) [#/Vol] 176 10*3/uL Normal 150-450 [facility] Comment on above: Performed By: #### L 500.2500, L100.0100 ####[facility] [address] [place], [address] RBC (Bld) [#/Vol] 4.78 10*6/uL Normal 4.2-5.4 [facility] Comment on above: Performed By: #### L 500.2500, L100.0100 ####[facility] [address] [place], [address] RDW SD 41.1 fl Normal 35.1-43.9 [facility] Comment on above: Performed By: #### L 500.2500, L100.0100 ####[facility] [address] [place], [address] WBC (Bld) [#/Vol] 9.0 10*3/uL Normal 4.4-11.0 [facility] Comment on above: Performed By: #### L 500.2500, L100.0100 ####[facility] [address] [place], [address] Magnesiumon 10-07-2024 Magnesium [Mass/Vol] 2.5 mg/dL High 1.5-2.2 [facility] Comment on above: Performed By: #### L 501.5200 ####[facility] [address] [place], [address] Magnesium measurement (mass/ volume)Ordered By: Michael Plasencia on 10-07-2024 Magnesium (Unsp spec) [Mass/Vol] 2.5 mg/dL High 1.5-2.2 [facility] Basic Metabolic Profile (BMP )on 10-06-2024 BUN/CRE 43.8 RATIO High 10-20 [facility] Comment on above: Performed By: #### L 100.0100, L500.2500 ####[facility] [address] [place], [address] Calcium [Mass/Vol] 8.3 mg/dL Normal 7.6-11.0 [facility] Comment on above: Performed By: #### L 100.0100, L500.2500 ####[facility] [address] [place], [address] Chloride [Moles/Vol] 94 mmol/L Low 98-108 [facility] Comment on above: Performed By: #### L 100.0100, L500.2500 ####[facility] [address] [place], [address] CO2 [Moles/Vol] 36.3 mmol/L High 21.0-32.0 [facility] Comment on above: Performed By: #### L 100.0100, L500.2500 ####[facility] [address] [place], [address] Creatinine [Mass/Vol] 0.45 mg/dL Low 0.70-1.20 [facility] Comment on above: Performed By: #### L 100.0100, L500.2500 ####[facility] [address] [place], [address] ECRCL 63.77 ml/min Normal 50-250 [facility] Comment on above: Performed By: #### L 100.0100, L500.2500 ####[facility] [address] [place], [address] GAP 7 Normal 5-15 [facility] Comment on above: Performed By: #### L 100.0100, L500.2500 ####[facility] [address] [place], [address] GFR/1.73 sq M.predicted among non-blacks MDRD (S/P/Bld) [Vol rate/Area] 104 mL/min/{1.73_m2} Normal >60 [facility] Comment on above: Result Comment: mL/m in/1.73m2 CKD-EPI Creatinine Equation (2020) Performed By: #### L 100.0100, L500.2500 ####[facility] [address] [place], [address] Glucose [Mass/Vol] 168 mg/dL High 70-99 [facility] Comment on above: Performed By: #### L 100.0100, L500.2500 ####[facility] [address] [place], [address] Potassium [Moles/Vol] 4.5 mmol/L Normal 3.3-5.1 [facility] Comment on above: Performed By: #### L 100.0100, L500.2500 ####[facility] [address] [place], [address] Sodium [Moles/Vol] 137 mmol/L Normal 133-145 [facility] Comment on above: Performed By: #### L 100.0100, L500.2500 ####[facility] [address] [place], [address] Urea nitrogen [Mass/Vol] 20 mg/dL High 4-19 [facility] Comment on above: Performed By: #### L 100.0100, L500.2500 ####[facility] [address] [place], [address] CBC W/Diff, Automatedon 06-04 28-2024 Absolute Lymph 0.44 X10 3/uL Low 0.83-4.51 [facility] Comment on above: Performed By: #### L 100.0100, L500.2500 ####[facility] [address] [place], [address] Absolute Neut 8.7 X10 3/uL High 2.0-7.7 [facility] Comment on above: Performed By: #### L 100.0100, L500.2500 ####[facility] [address] [place], [address] Basophils/100 WBC (Bld) 0.1 % Normal 0-1 [facility] Comment on above: Performed By: #### L 100.0100, L500.2500 ####[facility] [address] [place], [address] Eosinophils/100 WBC (Bld) 0.0 % Normal 0-5 [facility] Comment on above: Performed By: #### L 100.0100, L500.2500 ####[facility] [address] [place], [address] Erythrocyte distribution width (RBC) [Ratio] 13.0 % Normal 11.6-14.6 [facility] Comment on above: Performed By: #### L 100.0100, L500.2500 ####[facility] [address] [place], [address] Hematocrit (Bld) [Volume fraction] 43.5 % Normal 37-47 [facility] Comment on above: Performed By: #### L 100.0100, L500.2500 ####[facility] [address] [place], [address] Hemoglobin (Bld) [Mass/Vol] 14.2 g/dL Normal 12.0-15.0 [facility] Comment on above: Performed By: #### L 100.0100, L500.2500 ####[facility] [address] [place], [address] IG% 0.800 Normal 0.0-0.9 [facility] Comment on above: Result Comment: IG% - Immature Granulocytes (promyelocytes, myelocytes andmetamyelocytes) > 1% indicates that a LEFT SHIFT is Present. Performed By: #### L 100.0100, L500.2500 ####[facility] [address] [place], [address] Lymphocytes/100 WBC (Bld) 4.6 % Low 19-41 [facility] Comment on above: Performed By: #### L 100.0100, L500.2500 ####[facility] [address] [place], [address] MCH (RBC) [Entitic mass] 27.7 pg Normal 27.0-32.0 [facility] Comment on above: Performed By: #### L 100.0100, L500.2500 ####[facility] [address] [place], [address] MCHC (RBC) [Mass/Vol] 32.6 g/dL Normal 32-36 [facility] Comment on above: Performed By: #### L 100.0100, L500.2500 ####[facility] [address] [place], [address] MCV (RBC) [Entitic vol] 84.8 fL Normal 81-99 [facility] Comment on above: Performed By: #### L 100.0100, L500.2500 ####[facility] [address] [place], [address] Monocytes/100 WBC (Bld) 3.9 % Normal 0-10 [facility] Comment on above: Performed By: #### L 100.0100, L500.2500 ####[facility] [address] [place], [address] Neutrophils/100 WBC (Bld) 90.6 % High 47-70 [facility] Comment on above: Performed By: #### L 100.0100, L500.2500 ####[facility] [address] [place], [address] Nucleated RBC (Bld) [#/Vol] 0 10*3/uL Normal 0-5 [facility] Comment on above: Performed By: #### L 100.0100, L500.2500 ####[facility] [address] [place], [address] Platelet mean volume (Bld) [Entitic vol] 10.2 fL Normal 6.2-12.0 [facility] Comment on above: Performed By: #### L 100.0100, L500.2500 ####[facility] [address] [place], [address] Platelets (Bld) [#/Vol] 176 10*3/uL Normal 150-450 [facility] Comment on above: Performed By: #### L 100.0100, L500.2500 ####[facility] [address] [place], [address] RBC (Bld) [#/Vol] 5.13 10*6/uL Normal 4.2-5.4 [facility] Comment on above: Performed By: #### L 100.0100, L500.2500 ####[facility] [address] [place], [address] RDW SD 40.3 fl Normal 35.1-43.9 [facility] Comment on above: Performed By: #### L 100.0100, L500.2500 ####[facility] [address] [place], [address] WBC (Bld) [#/Vol] 9.7 10*3/uL Normal 4.4-11.0 [facility] Comment on above: Performed By: #### L 100.0100, L500.2500 ####[facility] [address] [place], [address] Basic Metabolic Profile (BMP )on 10-05-2024 BUN/CRE 44.0 RATIO High 10-20 [facility] Comment on above: Performed By: #### L 100.0100, L500.2500 ####[facility] [address] [place], [address] Calcium [Mass/Vol] 8.5 mg/dL Normal 7.6-11.0 [facility] Comment on above: Performed By: #### L 100.0100, L500.2500 ####[facility] [address] [place], [address] Chloride [Moles/Vol] 94 mmol/L Low 98-108 [facility] Comment on above: Performed By: #### L 100.0100, L500.2500 ####[facility] [address] [place], [address] CO2 [Moles/Vol] 36.3 mmol/L High 21.0-32.0 [facility] Comment on above: Performed By: #### L 100.0100, L500.2500 ####[facility] [address] [place], [address] Creatinine [Mass/Vol] 0.52 mg/dL Low 0.70-1.20 [facility] Comment on above: Performed By: #### L 100.0100, L500.2500 ####[facility] [address] [place], [address] ECRCL 64.35 ml/min Normal 50-250 [facility] Comment on above: Performed By: #### L 100.0100, L500.2500 ####[facility] [address] [place], [address] GAP 6 Normal 5-15 [facility] Comment on above: Performed By: #### L 100.0100, L500.2500 ####[facility] [address] [place], [address] GFR/1.73 sq M.predicted among non-blacks MDRD (S/P/Bld) [Vol rate/Area] 101 mL/min/{1.73_m2} Normal >60 [facility] Comment on above: Result Comment: mL/m in/1.73m2 CKD-EPI Creatinine Equation (2020) Performed By: #### L 100.0100, L500.2500 ####[facility] [address] [place], [address] Glucose [Mass/Vol] 130 mg/dL High 70-99 [facility] Comment on above: Performed By: #### L 100.0100, L500.2500 ####[facility] [address] [place], [address] Potassium [Moles/Vol] 4.7 mmol/L Normal 3.3-5.1 [facility] Comment on above: Result Comment: Hemo lysis present, Results??could be affected.?? Performed By: #### L 100.0100, L500.2500 ####[facility] [address] [place], [address] Sodium [Moles/Vol] 137 mmol/L Normal 133-145 [facility] Comment on above: Performed By: #### L 100.0100, L500.2500 ####[facility] [address] [place], [address] Urea nitrogen [Mass/Vol] 23 mg/dL High 4-19 [facility] Comment on above: Performed By: #### L 100.0100, L500.2500 ####[facility] [address] [place], [address] CBC W/Diff, Automatedon - 2-2024 Absolute Lymph 0.47 X10 3/uL Low 0.83-4.51 [facility] Comment on above: Performed By: #### L 100.0100, L500.2500 ####[facility] [address] [place], [address] Absolute Neut 8.2 X10 3/uL High 2.0-7.7 [facility] Comment on above: Performed By: #### L 100.0100, L500.2500 ####[facility] [address] [place], [address] Basophils/100 WBC (Bld) 0.1 % Normal 0-1 [facility] Comment on above: Performed By: #### L 100.0100, L500.2500 ####[facility] [address] [place], [address] Eosinophils/100 WBC (Bld) 0.0 % Normal 0-5 [facility] Comment on above: Performed By: #### L 100.0100, L500.2500 ####[facility] [address] [place], [address] Erythrocyte distribution width (RBC) [Ratio] 12.9 % Normal 11.6-14.6 [facility] Comment on above: Performed By: #### L 100.0100, L500.2500 ####[facility] [address] [place], [address] Hematocrit (Bld) [Volume fraction] 41.7 % Normal 37-47 [facility] Comment on above: Performed By: #### L 100.0100, L500.2500 ####[facility] [address] [place], [address] Hemoglobin (Bld) [Mass/Vol] 13.7 g/dL Normal 12.0-15.0 [facility] Comment on above: Performed By: #### L 100.0100, L500.2500 ####[facility] [address] [place], [address] IG% 0.600 Normal 0.0-0.9 [facility] Comment on above: Result Comment: IG% - Immature Granulocytes (promyelocytes, myelocytes andmetamyelocytes) > 1% indicates that a LEFT SHIFT is Present. Performed By: #### L 100.0100, L500.2500 ####[facility] [address] [place], [address] Lymphocytes/100 WBC (Bld) 5.2 % Low 19-41 [facility] Comment on above: Performed By: #### L 100.0100, L500.2500 ####[facility] [address] [place], [address] MCH (RBC) [Entitic mass] 28.0 pg Normal 27.0-32.0 [facility] Comment on above: Performed By: #### L 100.0100, L500.2500 ####[facility] [address] [place], [address] MCHC (RBC) [Mass/Vol] 32.9 g/dL Normal 32-36 [facility] Comment on above: Performed By: #### L 100.0100, L500.2500 ####[facility] [address] [place], [address] MCV (RBC) [Entitic vol] 85.3 fL Normal 81-99 [facility] Comment on above: Performed By: #### L 100.0100, L500.2500 ####[facility] [address] [place], [address] Monocytes/100 WBC (Bld) 3.0 % Normal 0-10 [facility] Comment on above: Performed By: #### L 100.0100, L500.2500 ####[facility] [address] [place], [address] Neutrophils/100 WBC (Bld) 91.1 % High 47-70 [facility] Comment on above: Performed By: #### L 100.0100, L500.2500 ####[facility] [address] [place], [address] Nucleated RBC (Bld) [#/Vol] 0 10*3/uL Normal 0-5 [facility] Comment on above: Performed By: #### L 100.0100, L500.2500 ####[facility] [address] [place], [address] Platelet mean volume (Bld) [Entitic vol] 10.6 fL Normal 6.2-12.0 [facility] Comment on above: Performed By: #### L 100.0100, L500.2500 ####[facility] [address] [place], [address] Platelets (Bld) [#/Vol] 172 10*3/uL Normal 150-450 [facility] Comment on above: Performed By: #### L 100.0100, L500.2500 ####[facility] [address] [place], [address] RBC (Bld) [#/Vol] 4.89 10*6/uL Normal 4.2-5.4 [facility] Comment on above: Performed By: #### L 100.0100, L500.2500 ####[facility] [address] [place], [address] RDW SD 39.9 fl Normal 35.1-43.9 [facility] Comment on above: Performed By: #### L 100.0100, L500.2500 ####[facility] [address] [place], [address] WBC (Bld) [#/Vol] 9.0 10*3/uL Normal 4.4-11.0 [facility] Comment on above: Performed By: #### L 100.0100, L500.2500 ####[facility] [address] [place], [address] Electrocardiogram reportOrde red By: Junito Madrid on 10-05-2024 EKG study [facility] [address] [facility] [place] [address] 12 Lead EKG 10/04/24 1439 MR#: [id number] Acct: [id number] Name: DENIA GONZALEZ Rep #:[id number] : 1955 69 From: Junito contreras MD Attending Dr: Dr. Lynne Schafer MD Status: ADM IN Ordering Dr: Lynne Schafer MD Date: 10/04/24 Location: [facility] Sex: F C Admitted: 09/29/24 [...] replaced Atrial fibrillation Confirmed by Junito Madrid ([id number]), supervising editor trailer LEORA RESTREPO ([id number]) on 10/05/2024 8:34:43 AM Referred By: Confirmed By: Junito Madrid 10/05/24 0834 Date _ Junito Madrid MD CC: Dr. Yoseph Fall MD; Dr. Lynne Schafer MD ~ Signed [facility] Work Phone: 12 Lead EKGon 10-04-2024 12 Lead EKG Normal [facility] Basic Metabolic Profile (BMP )on 10-04-2024 BUN/CRE 36.3 RATIO High 10-20 [facility] Comment on above: Performed By: #### L 100.0100, L500.2500 ####[facility] [address] [place], [address] Calcium [Mass/Vol] 8.7 mg/dL Normal 7.6-11.0 [facility] Comment on above: Performed By: #### L 100.0100, L500.2500 ####[facility] [address] [place], [address] Chloride [Moles/Vol] 94 mmol/L Low 98-108 [facility] Comment on above: Performed By: #### L 100.0100, L500.2500 ####[facility] [address] [place], [address] CO2 [Moles/Vol] 35.4 mmol/L High 21.0-32.0 [facility] Comment on above: Performed By: #### L 100.0100, L500.2500 ####[facility] [address] [place], [address] Creatinine [Mass/Vol] 0.58 mg/dL Low 0.70-1.20 [facility] Comment on above: Performed By: #### L 100.0100, L500.2500 ####[facility] [address] [place], [address] ECRCL 63.56 ml/min Normal 50-250 [facility] Comment on above: Performed By: #### L 100.0100, L500.2500 ####[facility] [address] [place], [address] GAP 8 Normal 5-15 [facility] Comment on above: Performed By: #### L 100.0100, L500.2500 ####[facility] [address] [place], [address] GFR/1.73 sq M.predicted among non-blacks MDRD (S/P/Bld) [Vol rate/Area] 98 mL/min/{1.73_m2} Normal >60 [facility] Comment on above: Result Comment: mL/m in/1.73m2 CKD-EPI Creatinine Equation (2020) Performed By: #### L 100.0100, L500.2500 ####[facility] [address] [place], [address] Glucose [Mass/Vol] 125 mg/dL High 70-99 [facility] Comment on above: Performed By: #### L 100.0100, L500.2500 ####[facility] [address] [place], [address] Potassium [Moles/Vol] 4.6 mmol/L Normal 3.3-5.1 [facility] Comment on above: Performed By: #### L 100.0100, L500.2500 ####[facility] [address] [place], [address] Sodium [Moles/Vol] 137 mmol/L Normal 133-145 [facility] Comment on above: Performed By: #### L 100.0100, L500.2500 ####[facility] [address] [place], [address] Urea nitrogen [Mass/Vol] 21 mg/dL High 4-19 [facility] Comment on above: Performed By: #### L 100.0100, L500.2500 ####[facility] [address] [place], [address] CBC W/Diff, Automatedon 06- Absolute Lymph 0.46 X10 3/uL Low 0.83-4.51 [facility] Comment on above: Performed By: #### L 100.0100, L500.2500 ####[facility] [address] [place], [address] Absolute Neut 6.5 X10 3/uL Normal 2.0-7.7 [facility] Comment on above: Performed By: #### L 100.0100, L500.2500 ####[facility] [address] [place], [address] Basophils/100 WBC (Bld) 0.0 % Normal 0-1 [facility] Comment on above: Performed By: #### L 100.0100, L500.2500 ####[facility] [address] [place], [address] Eosinophils/100 WBC (Bld) 0.0 % Normal 0-5 [facility] Comment on above: Performed By: #### L 100.0100, L500.2500 ####[facility] [address] [place], [address] Erythrocyte distribution width (RBC) [Ratio] 12.9 % Normal 11.6-14.6 [facility] Comment on above: Performed By: #### L 100.0100, L500.2500 ####[facility] [address] [place], [address] Hematocrit (Bld) [Volume fraction] 41.4 % Normal 37-47 [facility] Comment on above: Performed By: #### L 100.0100, L500.2500 ####[facility] [address] [place], [address] Hemoglobin (Bld) [Mass/Vol] 13.9 g/dL Normal 12.0-15.0 [facility] Comment on above: Performed By: #### L 100.0100, L500.2500 ####[facility] [address] [place], [address] IG% 0.600 Normal 0.0-0.9 [facility] Comment on above: Result Comment: IG% - Immature Granulocytes (promyelocytes, myelocytes andmetamyelocytes) > 1% indicates that a LEFT SHIFT is Present. Performed By: #### L 100.0100, L500.2500 ####[facility] [address] [place], [address] Lymphocytes/100 WBC (Bld) 6.4 % Low 19-41 [facility] Comment on above: Performed By: #### L 100.0100, L500.2500 ####[facility] [address] [place], [address] MCH (RBC) [Entitic mass] 28.6 pg Normal 27.0-32.0 [facility] Comment on above: Performed By: #### L 100.0100, L500.2500 ####[facility] [address] [place], [address] MCHC (RBC) [Mass/Vol] 33.6 g/dL Normal 32-36 [facility] Comment on above: Performed By: #### L 100.0100, L500.2500 ####[facility] [address] [place], [address] MCV (RBC) [Entitic vol] 85.2 fL Normal 81-99 [facility] Comment on above: Performed By: #### L 100.0100, L500.2500 ####[facility] [address] [place], [address] Monocytes/100 WBC (Bld) 2.9 % Normal 0-10 [facility] Comment on above: Performed By: #### L 100.0100, L500.2500 ####[facility] [address] [place], [address] Neutrophils/100 WBC (Bld) 90.1 % High 47-70 [facility] Comment on above: Performed By: #### L 100.0100, L500.2500 ####[facility] [address] [place], [address] Nucleated RBC (Bld) [#/Vol] 0 10*3/uL Normal 0-5 [facility] Comment on above: Performed By: #### L 100.0100, L500.2500 ####[facility] [address] [place], [address] Platelet mean volume (Bld) [Entitic vol] 9.9 fL Normal 6.2-12.0 [facility] Comment on above: Performed By: #### L 100.0100, L500.2500 ####[facility] [address] [place], [address] Platelets (Bld) [#/Vol] 160 10*3/uL Normal 150-450 [facility] Comment on above: Performed By: #### L 100.0100, L500.2500 ####[facility] [address] [place], [address] RBC (Bld) [#/Vol] 4.86 10*6/uL Normal 4.2-5.4 [facility] Comment on above: Performed By: #### L 100.0100, L500.2500 ####[facility] [address] [place], [address] RDW SD 39.8 fl Normal 35.1-43.9 [facility] Comment on above: Performed By: #### L 100.0100, L500.2500 ####[facility] [address] [place], [address] WBC (Bld) [#/Vol] 7.2 10*3/uL Normal 4.4-11.0 [facility] Comment on above: Performed By: #### L 100.0100, L500.2500 ####[facility] [address] [place], [address] Basic Metabolic Profile (BMP )on 10-03-2024 BUN/CRE 34.9 RATIO High 10-20 [facility] Comment on above: Performed By: #### L 506.0400, L500.2500, L100.0100 ####[facility] [address] [place], [address] Calcium [Mass/Vol] 8.8 mg/dL Normal 7.6-11.0 [facility] Comment on above: Performed By: #### L 506.0400, L500.2500, L100.0100 ####[facility] [address] [place], [address] Chloride [Moles/Vol] 93 mmol/L Low 98-108 [facility] Comment on above: Performed By: #### L 506.0400, L500.2500, L100.0100 ####[facility] [address] [place], [address] CO2 [Moles/Vol] 34.0 mmol/L High 21.0-32.0 [facility] Comment on above: Performed By: #### L 506.0400, L500.2500, L100.0100 ####[facility] [address] [place], [address] Creatinine [Mass/Vol] 0.65 mg/dL Low 0.70-1.20 [facility] Comment on above: Performed By: #### L 506.0400, L500.2500, L100.0100 ####[facility] [address] [place], [address] ECRCL 63.56 ml/min Normal 50-250 [facility] Comment on above: Performed By: #### L 506.0400, L500.2500, L100.0100 ####[facility] [address] [place], [address] GAP 9 Normal 5-15 [facility] Comment on above: Performed By: #### L 506.0400, L500.2500, L100.0100 ####[facility] [address] [place], [address] GFR/1.73 sq M.predicted among non-blacks MDRD (S/P/Bld) [Vol rate/Area] 95 mL/min/{1.73_m2} Normal >60 [facility] Comment on above: Result Comment: mL/m in/1.73m2 CKD-EPI Creatinine Equation (2020) Performed By: #### L 506.0400, L500.2500, L100.0100 ####[facility] [address] [place], [address] Glucose [Mass/Vol] 220 mg/dL High 70-99 [facility] Comment on above: Performed By: #### L 506.0400, L500.2500, L100.0100 ####[facility] [address] [place], [address] Potassium [Moles/Vol] 4.4 mmol/L Normal 3.3-5.1 [facility] Comment on above: Performed By: #### L 506.0400, L500.2500, L100.0100 ####[facility] [address] [place], [address] Sodium [Moles/Vol] 135 mmol/L Normal 133-145 [facility] Comment on above: Performed By: #### L 506.0400, L500.2500, L100.0100 ####[facility] [address] [place], [address] Urea nitrogen [Mass/Vol] 23 mg/dL High 4-19 [facility] Comment on above: Performed By: #### L 506.0400, L500.2500, L100.0100 ####[facility] [address] [place], [address] CBC W/Diff, Automatedon 06-1 0-2025 Absolute Lymph 0.48 X10 3/uL Low 0.83-4.51 [facility] Comment on above: Performed By: #### L 506.0400, L500.2500, L100.0100 ####[facility] [address] [place], [address] Absolute Neut 8.5 X10 3/uL High 2.0-7.7 [facility] Comment on above: Performed By: #### L 506.0400, L500.2500, L100.0100 ####[facility] [address] [place], [address] Basophils/100 WBC (Bld) 0.1 % Normal 0-1 [facility] Comment on above: Performed By: #### L 506.0400, L500.2500, L100.0100 ####[facility] [address] [place], [address] Eosinophils/100 WBC (Bld) 0.0 % Normal 0-5 [facility] Comment on above: Performed By: #### L 506.0400, L500.2500, L100.0100 ####[facility] [address] [place], [address] Erythrocyte distribution width (RBC) [Ratio] 13.1 % Normal 11.6-14.6 [facility] Comment on above: Performed By: #### L 506.0400, L500.2500, L100.0100 ####[facility] [address] [place], [address] Hematocrit (Bld) [Volume fraction] 41.4 % Normal 37-47 [facility] Comment on above: Performed By: #### L 506.0400, L500.2500, L100.0100 ####[facility] [address] [place], [address] Hemoglobin (Bld) [Mass/Vol] 13.6 g/dL Normal 12.0-15.0 [facility] Comment on above: Performed By: #### L 506.0400, L500.2500, L100.0100 ####[facility] [address] [place], [address] IG% 0.300 Normal 0.0-0.9 [facility] Comment on above: Result Comment: IG% - Immature Granulocytes (promyelocytes, myelocytes andmetamyelocytes) > 1% indicates that a LEFT SHIFT is Present. Performed By: #### L 506.0400, L500.2500, L100.0100 ####[facility] [address] [place], [address] Lymphocytes/100 WBC (Bld) 5.2 % Low 19-41 [facility] Comment on above: Performed By: #### L 506.0400, L500.2500, L100.0100 ####[facility] [address] [place], [address] MCH (RBC) [Entitic mass] 28.2 pg Normal 27.0-32.0 [facility] Comment on above: Performed By: #### L 506.0400, L500.2500, L100.0100 ####[facility] [address] [place], [address] MCHC (RBC) [Mass/Vol] 32.9 g/dL Normal 32-36 [facility] Comment on above: Performed By: #### L 506.0400, L500.2500, L100.0100 ####[facility] [address] [place], [address] MCV (RBC) [Entitic vol] 85.7 fL Normal 81-99 [facility] Comment on above: Performed By: #### L 506.0400, L500.2500, L100.0100 ####[facility] [address] [place], [address] Monocytes/100 WBC (Bld) 1.2 % Normal 0-10 [facility] Comment on above: Performed By: #### L 506.0400, L500.2500, L100.0100 ####[facility] [address] [place], [address] Neutrophils/100 WBC (Bld) 93.2 % High 47-70 [facility] Comment on above: Performed By: #### L 506.0400, L500.2500, L100.0100 ####[facility] [address] [place], [address] Nucleated RBC (Bld) [#/Vol] 0 10*3/uL Normal 0-5 [facility] Comment on above: Performed By: #### L 506.0400, L500.2500, L100.0100 ####[facility] [address] [place], [address] Platelet mean volume (Bld) [Entitic vol] 10.2 fL Normal 6.2-12.0 [facility] Comment on above: Performed By: #### L 506.0400, L500.2500, L100.0100 ####[facility] [address] [place], [address] Platelets (Bld) [#/Vol] 184 10*3/uL Normal 150-450 [facility] Comment on above: Performed By: #### L 506.0400, L500.2500, L100.0100 ####[facility] [address] [place], [address] RBC (Bld) [#/Vol] 4.83 10*6/uL Normal 4.2-5.4 [facility] Comment on above: Performed By: #### L 506.0400, L500.2500, L100.0100 ####[facility] [address] [place], [address] RDW SD 40.3 fl Normal 35.1-43.9 [facility] Comment on above: Performed By: #### L 506.0400, L500.2500, L100.0100 ####[facility] [address] [place], [address] WBC (Bld) [#/Vol] 9.2 10*3/uL Normal 4.4-11.0 [facility] Comment on above: Performed By: #### L 506.0400, L500.2500, L100.0100 ####[facility] [address] [place], [address] Electrocardiogram reportOrde red By: Junito Madrid on 10-03-2024 EKG study [facility] [address] [place] [address] 12 Lead EKG 10/02/24 1903 MR#: [id number] Acct: [id number] Name: DENIA GONZALEZ Rep #:[id number] : 1955 69 From: Junito contreras MD Attending Dr: Dr. Lynne Schafer MD Status: ADM IN Ordering Dr: Junito Madrid MD Date: 10/02/24 Location: [facility] Sex: F C Admitted: 09/29/24 [...] was found Confirmed by Junito Madrid ([id number]), supervising editor trailer LEORA RESTREPO ([id number]) on 10/03/2024 11:08:49 AM Referred By: Confirmed By: Junito Madrid 10/03/24 1108 Date _ Junito Madrid MD CC: Dr. Yoseph Fall MD; Dr. Junito Madrid MD; Dr. Lynne Schafer MD ~ Signed [facility] Work Phone: Respiratory Cultureon 2024 RESPC Normal [facility] Comment on above: Performed By: #### M 100.2400, M100.2000 ####[facility] [address] [place], [address] T4 Free Directon 10-03-2024 T4 FREE DIRECT 1.20 ng/dL Normal 0.76-1.46 [facility] Comment on above: Performed By: #### L 506.0400, L500.2500, L100.0100 ####[facility] [address] [place], [address] T4 freeOrdered By: Lynne soliz on 10-03-2024 Free T4 [Mass/Vol] 1.20 ng/dL 0.76-1.46 [facility] 12 Lead EKGon 10-02-2024 12 Lead EKG Normal [facility] 12 Lead EKG Normal [facility] Basic Metabolic Profile (BMP )on 10-02-2024 BUN/CRE 42.5 RATIO High 10-20 [facility] Comment on above: Performed By: #### L 100.0100, L500.2500 ####[facility] [address] [place], [address] Calcium [Mass/Vol] 8.9 mg/dL Normal 7.6-11.0 [facility] Comment on above: Performed By: #### L 100.0100, L500.2500 ####[facility] [address] [place], [address] Chloride [Moles/Vol] 95 mmol/L Low 98-108 [facility] Comment on above: Performed By: #### L 100.0100, L500.2500 ####[facility] [address] [place], [address] CO2 [Moles/Vol] 34.5 mmol/L High 21.0-32.0 [facility] Comment on above: Performed By: #### L 100.0100, L500.2500 ####[facility] [address] [place], [address] Creatinine [Mass/Vol] 0.55 mg/dL Low 0.70-1.20 [facility] Comment on above: Performed By: #### L 100.0100, L500.2500 ####[facility] [address] [place], [address] ECRCL 63.64 ml/min Normal 50-250 [facility] Comment on above: Performed By: #### L 100.0100, L500.2500 ####[facility] [address] [place], [address] GAP 9 Normal 5-15 [facility] Comment on above: Performed By: #### L 100.0100, L500.2500 ####[facility] [address] [place], [address] GFR/1.73 sq M.predicted among non-blacks MDRD (S/P/Bld) [Vol rate/Area] 99 mL/min/{1.73_m2} Normal >60 [facility] Comment on above: Result Comment: mL/m in/1.73m2 CKD-EPI Creatinine Equation (2020) Performed By: #### L 100.0100, L500.2500 ####[facility] [address] [place], [address] Glucose [Mass/Vol] 113 mg/dL High 70-99 [facility] Comment on above: Performed By: #### L 100.0100, L500.2500 ####[facility] [address] [place], [address] Potassium [Moles/Vol] 4.4 mmol/L Normal 3.3-5.1 [facility] Comment on above: Performed By: #### L 100.0100, L500.2500 ####[facility] [address] [place], [address] Sodium [Moles/Vol] 138 mmol/L Normal 133-145 [facility] Comment on above: Performed By: #### L 100.0100, L500.2500 ####[facility] [address] [place], [address] Urea nitrogen [Mass/Vol] 23 mg/dL High 4-19 [facility] Comment on above: Performed By: #### L 100.0100, L500.2500 ####[facility] [address] [place], [address] CBC W/Diff, Automatedon 06-0 9-2024 Absolute Lymph 0.50 X10 3/uL Low 0.83-4.51 [facility] Comment on above: Performed By: #### L 100.0100, L500.2500 ####[facility] [address] [place], [address] Absolute Neut 7.3 X10 3/uL Normal 2.0-7.7 [facility] Comment on above: Performed By: #### L 100.0100, L500.2500 ####[facility] [address] [place], [address] Basophils/100 WBC (Bld) 0.1 % Normal 0-1 [facility] Comment on above: Performed By: #### L 100.0100, L500.2500 ####[facility] [address] [place], [address] Eosinophils/100 WBC (Bld) 0.0 % Normal 0-5 [facility] Comment on above: Performed By: #### L 100.0100, L500.2500 ####[facility] [address] [place], [address] Erythrocyte distribution width (RBC) [Ratio] 13.1 % Normal 11.6-14.6 [facility] Comment on above: Performed By: #### L 100.0100, L500.2500 ####[facility] [address] [place], [address] Hematocrit (Bld) [Volume fraction] 40.4 % Normal 37-47 [facility] Comment on above: Performed By: #### L 100.0100, L500.2500 ####[facility] [address] [place], [address] Hemoglobin (Bld) [Mass/Vol] 13.4 g/dL Normal 12.0-15.0 [facility] Comment on above: Performed By: #### L 100.0100, L500.2500 ####[facility] [address] [place], [address] IG% 0.700 Normal 0.0-0.9 [facility] Comment on above: Result Comment: IG% - Immature Granulocytes (promyelocytes, myelocytes andmetamyelocytes) > 1% indicates that a LEFT SHIFT is Present. Performed By: #### L 100.0100, L500.2500 ####[facility] [address] [place], [address] Lymphocytes/100 WBC (Bld) 6.1 % Low 19-41 [facility] Comment on above: Performed By: #### L 100.0100, L500.2500 ####[facility] [address] [place], [address] MCH (RBC) [Entitic mass] 27.9 pg Normal 27.0-32.0 [facility] Comment on above: Performed By: #### L 100.0100, L500.2500 ####[facility] [address] [place], [address] MCHC (RBC) [Mass/Vol] 33.2 g/dL Normal 32-36 [facility] Comment on above: Performed By: #### L 100.0100, L500.2500 ####[facility] [address] [place], [address] MCV (RBC) [Entitic vol] 84.0 fL Normal 81-99 [facility] Comment on above: Performed By: #### L 100.0100, L500.2500 ####[facility] [address] [place], [address] Monocytes/100 WBC (Bld) 3.3 % Normal 0-10 [facility] Comment on above: Performed By: #### L 100.0100, L500.2500 ####[facility] [address] [place], [address] Neutrophils/100 WBC (Bld) 89.8 % High 47-70 [facility] Comment on above: Performed By: #### L 100.0100, L500.2500 ####[facility] [address] [place], [address] Nucleated RBC (Bld) [#/Vol] 0 10*3/uL Normal 0-5 [facility] Comment on above: Performed By: #### L 100.0100, L500.2500 ####[facility] [address] [place], [address] Platelet mean volume (Bld) [Entitic vol] 9.7 fL Normal 6.2-12.0 [facility] Comment on above: Performed By: #### L 100.0100, L500.2500 ####[facility] [address] [place], [address] Platelets (Bld) [#/Vol] 172 10*3/uL Normal 150-450 [facility] Comment on above: Performed By: #### L 100.0100, L500.2500 ####[facility] [address] [place], [address] RBC (Bld) [#/Vol] 4.81 10*6/uL Normal 4.2-5.4 [facility] Comment on above: Performed By: #### L 100.0100, L500.2500 ####[facility] [address] [place], [address] RDW SD 39.8 fl Normal 35.1-43.9 [facility] Comment on above: Performed By: #### L 100.0100, L500.2500 ####[facility] [address] [place], [address] WBC (Bld) [#/Vol] 8.2 10*3/uL Normal 4.4-11.0 [facility] Comment on above: Performed By: #### L 100.0100, L500.2500 ####[facility] [address] [place], [address] Consultation - Cardiologyon 10-02-2024 Consultation - Cardiology Normal [facility] Echo Completeon 10-02-2024 Echo Complete Normal [facility] Echocardiogram study reportO rdered By: Dillon Lopez on 10-02-2024 Study report [facility] [address] [place] [address] Echo Complete 10/02/24 1337 MR#: [id number] Acct: [id number] Name: DENIA GONZALEZ Rep #:[id number] : 1955 69 From: Dillon Lopez MD [...] Dictated: 10/02/24 1337 Date Transcribed: 10/02/24 1424 Paleobotanist: Signed [facility] Work Phone: Electrocardiogram reportOrde red By: Junito Madrid on 10-02-2024 EKG study [facility] Cardi[facility] Services [address] [place] [address] 12 Lead EKG 10/02/24 09 MR#: [id number] Acct: [id number] Name: DENIA GONZALEZ Rep #:[id number] : 1955 69 From: Junito contreras MD Attending Dr: Dr. Lynne Schafer MD Status: ADM IN Ordering Dr: Lynne Schafer MD Date: 10/02/24 Location: [facility] Sex: F C Admitted: 09/29/24 [...] DATA IS UNCONFIRMED Confirmed by Junito Madrid ([id number]), supervising editor trailer LEORA RESTREPO ([id number]) on 10/02/2024 10:43:05 AM Referred By: Confirmed By: Junito Madrid 10/02/24 1043 Date _ Junito Madrid MD CC: Dr. Yoseph Fall MD; Dr. Lynne Schafer MD ~ Signed [facility] Work Phone: Gram Stainon 10-02-2024 GS Acceptable Specimen? Yes (<25 Epithelial cells per/lpf) Gram Stain 2+ Gram positive cocci 2+ Gram positive rods 2+ Gram negative rods Normal [facility] Comment on above: Performed By: #### M 100.2400, M100.2000 ####[facility] [address] [place], [address] L499.0042on 10-02-2024 Trop T High Sen 23 ng/L High <=14 [facility] Comment on above: Performed By: #### L 499.0042 ####[facility] [address] [place], [address] L499.0043on 10-02-2024 Trop T High Sen 24 ng/L High <=14 [facility] Comment on above: Performed By: #### L 499.0043 ####[facility] [address] [place], [address] L501.4021on 10-02-2024 Trop T High Sen 23 ng/L High <=14 [facility] Comment on above: Performed By: #### L 501.4021 ####[facility] [address] [place], [address] Magnesiumon 10-02-2024 Magnesium [Mass/Vol] 2.1 mg/dL Normal 1.5-2.2 [facility] Comment on above: Performed By: #### L 501.9520, L501.5200 ####[facility] [address] [place], [address] TSH DL <= 0.005 mIU/L QnOrde red By: Lynne Schafer on 10-02-2024 TSH Qn 0.281 uIU/mL Low 0.300-4.200 [facility] Thyroid Stim Hormone (TSH)on 10-02-2024 TSH 0.281 uIU/mL Low 0.300-4.200 [facility] Comment on above: Performed By: #### L 501.9520, L501.5200 ####[facility] [address] [place], [address] Troponin T.cardiac [Mass/vol ume] in Serum or Plasma by High sensitivity methodOrdered By: Lynne Schafer on 10-02-2024 Troponin T.cardiac High sensitivity method [Mass/Vol] 24 ng/L High <14 [facility] Troponin T.cardiac High sensitivity method [Mass/Vol] 23 ng/L High <14 [facility] Troponin T.cardiac High sensitivity method [Mass/Vol] 23 ng/L High <14 [facility] Basic Metabolic Profile (BMP )on 10-01-2024 BUN/CRE 35.9 RATIO High 10-20 [facility] Comment on above: Performed By: #### L 500.2500, L100.0100 ####[facility] [address] [place], [address] Calcium [Mass/Vol] 9.2 mg/dL Normal 7.6-11.0 [facility] Comment on above: Performed By: #### L 500.2500, L100.0100 ####[facility] [address] [place], [address] Chloride [Moles/Vol] 94 mmol/L Low 98-108 [facility] Comment on above: Performed By: #### L 500.2500, L100.0100 ####[facility] [address] [place], [address] CO2 [Moles/Vol] 34.2 mmol/L High 21.0-32.0 [facility] Comment on above: Performed By: #### L 500.2500, L100.0100 ####[facility] [address] [place], [address] Creatinine [Mass/Vol] 0.59 mg/dL Low 0.70-1.20 [facility] Comment on above: Performed By: #### L 500.2500, L100.0100 ####[facility] [address] [place], [address] ECRCL 65.06 ml/min Normal 50-250 [facility] Comment on above: Performed By: #### L 500.2500, L100.0100 ####[facility] [address] [place], [address] GAP 10 Normal 5-15 [facility] Comment on above: Performed By: #### L 500.2500, L100.0100 ####[facility] [address] [place], [address] GFR/1.73 sq M.predicted among non-blacks MDRD (S/P/Bld) [Vol rate/Area] 97 mL/min/{1.73_m2} Normal >60 [facility] Comment on above: Result Comment: mL/m in/1.73m2 CKD-EPI Creatinine Equation (2020) Performed By: #### L 500.2500, L100.0100 ####[facility] [address] [place], [address] Glucose [Mass/Vol] 111 mg/dL High 70-99 [facility] Comment on above: Performed By: #### L 500.2500, L100.0100 ####[facility] [address] [place], [address] Potassium [Moles/Vol] 4.1 mmol/L Normal 3.3-5.1 [facility] Comment on above: Performed By: #### L 500.2500, L100.0100 ####[facility] [address] [place], [address] Sodium [Moles/Vol] 138 mmol/L Normal 133-145 [facility] Comment on above: Performed By: #### L 500.2500, L100.0100 ####[facility] [address] [place], [address] Urea nitrogen [Mass/Vol] 21 mg/dL High 4-19 [facility] Comment on above: Performed By: #### L 500.2500, L100.0100 ####[facility] [address] [place], [address] CBC W/Diff, Automatedon 06-0 8-5 Absolute Lymph 0.58 X10 3/uL Low 0.83-4.51 [facility] Comment on above: Performed By: #### L 500.2500, L100.0100 ####[facility] [address] [place], [address] Absolute Neut 7.6 X10 3/uL Normal 2.0-7.7 [facility] Comment on above: Performed By: #### L 500.2500, L100.0100 ####[facility] [address] [place], [address] Basophils/100 WBC (Bld) 0.1 % Normal 0-1 [facility] Comment on above: Performed By: #### L 500.2500, L100.0100 ####[facility] [address] [place], [address] Eosinophils/100 WBC (Bld) 0.0 % Normal 0-5 [facility] Comment on above: Performed By: #### L 500.2500, L100.0100 ####[facility] [address] [place], [address] Erythrocyte distribution width (RBC) [Ratio] 12.9 % Normal 11.6-14.6 [facility] Comment on above: Performed By: #### L 500.2500, L100.0100 ####[facility] [address] [place], [address] Hematocrit (Bld) [Volume fraction] 40.9 % Normal 37-47 [facility] Comment on above: Performed By: #### L 500.2500, L100.0100 ####[facility] [address] [place], [address] Hemoglobin (Bld) [Mass/Vol] 13.5 g/dL Normal 12.0-15.0 [facility] Comment on above: Performed By: #### L 500.2500, L100.0100 ####[facility] [address] [place], [address] IG% 0.500 Normal 0.0-0.9 [facility] Comment on above: Result Comment: IG% - Immature Granulocytes (promyelocytes, myelocytes andmetamyelocytes) > 1% indicates that a LEFT SHIFT is Present. Performed By: #### L 500.2500, L100.0100 ####[facility] [address] [place], [address] Lymphocytes/100 WBC (Bld) 6.8 % Low 19-41 [facility] Comment on above: Performed By: #### L 500.2500, L100.0100 ####[facility] [address] [place], [address] MCH (RBC) [Entitic mass] 27.6 pg Normal 27.0-32.0 [facility] Comment on above: Performed By: #### L 500.2500, L100.0100 ####[facility] [address] [place], [address] MCHC (RBC) [Mass/Vol] 33.0 g/dL Normal 32-36 [facility] Comment on above: Performed By: #### L 500.2500, L100.0100 ####[facility] [address] [place], [address] MCV (RBC) [Entitic vol] 83.5 fL Normal 81-99 [facility] Comment on above: Performed By: #### L 500.2500, L100.0100 ####[facility] [address] [place], [address] Monocytes/100 WBC (Bld) 3.6 % Normal 0-10 [facility] Comment on above: Performed By: #### L 500.2500, L100.0100 ####[facility] [address] [place], [address] Neutrophils/100 WBC (Bld) 89.0 % High 47-70 [facility] Comment on above: Performed By: #### L 500.2500, L100.0100 ####[facility] [address] [place], [address] Nucleated RBC (Bld) [#/Vol] 0 10*3/uL Normal 0-5 [facility] Comment on above: Performed By: #### L 500.2500, L100.0100 ####[facility] [address] [place], [address] Platelet mean volume (Bld) [Entitic vol] 9.8 fL Normal 6.2-12.0 [facility] Comment on above: Performed By: #### L 500.2500, L100.0100 ####[facility] [address] [place], [address] Platelets (Bld) [#/Vol] 176 10*3/uL Normal 150-450 [facility] Comment on above: Performed By: #### L 500.2500, L100.0100 ####[facility] [address] [place], [address] RBC (Bld) [#/Vol] 4.90 10*6/uL Normal 4.2-5.4 [facility] Comment on above: Performed By: #### L 500.2500, L100.0100 ####[facility] [address] [place], [address] RDW SD 39.2 fl Normal 35.1-43.9 [facility] Comment on above: Performed By: #### L 500.2500, L100.0100 ####[facility] [address] [place], [address] WBC (Bld) [#/Vol] 8.5 10*3/uL Normal 4.4-11.0 [facility] Comment on above: Performed By: #### L 500.2500, L100.0100 ####[facility] [address] [place], [address] Bilirubin, totalOrdered By: Dionne Porter on 09-30-2024 Bilirubin [Mass/Vol] 0.27 mg/dL Normal 0.00-1.30 [facility] Comment on above: Performed By: #### L 100.0100, L500.4050 ####[facility] [address] [place], [address] CBC W/Diff, Automatedon Absolute Lymph 0.61 X10 3/uL Low 0.83-4.51 [facility] Comment on above: Performed By: #### L 100.0100, L500.4050 ####[facility] [address] [place], [address] Absolute Neut 6.8 X10 3/uL Normal 2.0-7.7 [facility] Comment on above: Performed By: #### L 100.0100, L500.4050 ####[facility] [address] [place], [address] Basophils/100 WBC (Bld) 0.0 % Normal 0-1 [facility] Comment on above: Performed By: #### L 100.0100, L500.4050 ####[facility] [address] [place], [address] Eosinophils/100 WBC (Bld) 0.0 % Normal 0-5 [facility] Comment on above: Performed By: #### L 100.0100, L500.4050 ####[facility] [address] [place], [address] Erythrocyte distribution width (RBC) [Ratio] 13.0 % Normal 11.6-14.6 [facility] Comment on above: Performed By: #### L 100.0100, L500.4050 ####[facility] [address] [place], [address] Hematocrit (Bld) [Volume fraction] 38.4 % Normal 37-47 [facility] Comment on above: Performed By: #### L 100.0100, L500.4050 ####[facility] [address] [place], [address] Hemoglobin (Bld) [Mass/Vol] 12.6 g/dL Normal 12.0-15.0 [facility] Comment on above: Performed By: #### L 100.0100, L500.4050 ####[facility] [address] [place], [address] IG% 0.400 Normal 0.0-0.9 [facility] Comment on above: Result Comment: IG% - Immature Granulocytes (promyelocytes, myelocytes andmetamyelocytes) > 1% indicates that a LEFT SHIFT is Present. Performed By: #### L 100.0100, L500.4050 ####[facility] [address] [place], [address] Lymphocytes/100 WBC (Bld) 8.0 % Low 19-41 [facility] Comment on above: Performed By: #### L 100.0100, L500.4050 ####[facility] [address] [place], [address] MCH (RBC) [Entitic mass] 27.9 pg Normal 27.0-32.0 [facility] Comment on above: Performed By: #### L 100.0100, L500.4050 ####[facility] [address] [place], [address] MCHC (RBC) [Mass/Vol] 32.8 g/dL Normal 32-36 [facility] Comment on above: Performed By: #### L 100.0100, L500.4050 ####[facility] [address] [place], [address] MCV (RBC) [Entitic vol] 85.0 fL Normal 81-99 [facility] Comment on above: Performed By: #### L 100.0100, L500.4050 ####[facility] [address] [place], [address] Monocytes/100 WBC (Bld) 3.5 % Normal 0-10 [facility] Comment on above: Performed By: #### L 100.0100, L500.4050 ####[facility] [address] [place], [address] Neutrophils/100 WBC (Bld) 88.1 % High 47-70 [facility] Comment on above: Performed By: #### L 100.0100, L500.4050 ####[facility] [address] [place], [address] Nucleated RBC (Bld) [#/Vol] 0 10*3/uL Normal 0-5 [facility] Comment on above: Performed By: #### L 100.0100, L500.4050 ####[facility] [address] [place], [address] Platelet mean volume (Bld) [Entitic vol] 10.0 fL Normal 6.2-12.0 [facility] Comment on above: Performed By: #### L 100.0100, L500.4050 ####[facility] [address] [place], [address] Platelets (Bld) [#/Vol] 177 10*3/uL Normal 150-450 [facility] Comment on above: Performed By: #### L 100.0100, L500.4050 ####[facility] [address] [place], [address] RBC (Bld) [#/Vol] 4.52 10*6/uL Normal 4.2-5.4 [facility] Comment on above: Performed By: #### L 100.0100, L500.4050 ####[facility] [address] [place], [address] RDW SD 39.9 fl Normal 35.1-43.9 [facility] Comment on above: Performed By: #### L 100.0100, L500.4050 ####[facility] [address] [place], [address] WBC (Bld) [#/Vol] 7.7 10*3/uL Normal 4.4-11.0 [facility] Comment on above: Performed By: #### L 100.0100, L500.4050 ####[facility] [address] [place], [address] Comprehensive Metabolic Prof ilon 09-30-2024 ALK PHOS 60 U/L Normal 35-104 [facility] Comment on above: Performed By: #### L 100.0100, L500.4050 ####[facility] [address] [place], [address] BUN/CRE 32.5 RATIO High 10-20 [facility] Comment on above: Performed By: #### L 100.0100, L500.4050 ####[facility] [address] [place], [address] Calcium [Mass/Vol] 9.0 mg/dL Normal 7.6-11.0 [facility] Comment on above: Performed By: #### L 100.0100, L500.4050 ####[facility] [address] [place], [address] Chloride [Moles/Vol] 95 mmol/L Low 98-108 [facility] Comment on above: Performed By: #### L 100.0100, L500.4050 ####[facility] [address] [place], [address] CO2 [Moles/Vol] 33.3 mmol/L High 21.0-32.0 [facility] Comment on above: Performed By: #### L 100.0100, L500.4050 ####[facility] [address] [place], [address] Creatinine [Mass/Vol] 0.58 mg/dL Low 0.70-1.20 [facility] Comment on above: Performed By: #### L 100.0100, L500.4050 ####[facility] [address] [place], [address] ECRCL 65.06 ml/min Normal 50-250 [facility] Comment on above: Performed By: #### L 100.0100, L500.4050 ####[facility] [address] [place], [address] GAP 10 Normal 5-15 [facility] Comment on above: Performed By: #### L 100.0100, L500.4050 ####[facility] [address] [place], [address] GFR/1.73 sq M.predicted among non-blacks MDRD (S/P/Bld) [Vol rate/Area] 98 mL/min/{1.73_m2} Normal >60 [facility] Comment on above: Result Comment: mL/m in/1.73m2 CKD-EPI Creatinine Equation (2020) Performed By: #### L 100.0100, L500.4050 ####[facility] [address] [place], [address] Glucose [Mass/Vol] 127 mg/dL High 70-99 [facility] Comment on above: Performed By: #### L 100.0100, L500.4050 ####[facility] [address] [place], [address] Potassium [Moles/Vol] 4.6 mmol/L Normal 3.3-5.1 [facility] Comment on above: Result Comment: Hemo lysis present, Results??could be affected.?? Performed By: #### L 100.0100, L500.4050 ####[facility] [address] [place], [address] Sodium [Moles/Vol] 138 mmol/L Normal 133-145 [facility] Comment on above: Performed By: #### L 100.0100, L500.4050 ####[facility] [address] [place], [address] T PROT 6.3 g/dL Normal 5.9-8.4 [facility] Comment on above: Performed By: #### L 100.0100, L500.4050 ####[facility] [address] [place], [address] Urea nitrogen [Mass/Vol] 19 mg/dL Normal 4-19 [facility] Comment on above: Performed By: #### L 100.0100, L500.4050 ####[facility] [address] [place], [address] Comprehensive Metabolic Prof ilOrdered By: Dionne Porter on 09-30-2024 AST [Catalytic activity/Vol] 17 U/L Normal <=31 [facility] Comment on above: Hemolysis present, R esults could be affected. Result Comment: Hemo lysis present, Results??could be affected.?? Performed By: #### L 100.0100, L500.4050 ####[facility] [address] [place], [address] No Panel InformationOrdered By: Dionne Porter on 09-30-2024 17 U/L <32 [facility] Serum globulin measurementOr dered By: Dionne Charlotte on 09-30-2024 Globulin (S) [Mass/Vol] 2.5 g/dL Normal 2.2-4.2 [facility] Comment on above: Performed By: #### L 100.0100, L500.4050 ####[facility] [address] [place], [address] Serum or plasma alanine retana otransferase (ALT) measurementOrdered By: Dionne Charlotte on 09-30-2024 ALT [Catalytic activity/Vol] 9 U/L Normal <=34 [facility] Comment on above: Performed By: #### L 100.0100, L500.4050 ####[facility] [address] [place], [address] Serum or plasma albumin kadi urement (mass/volume)Ordered By: Dionne Porter on 09-30-2024 Albumin [Mass/Vol] 3.8 g/dL Normal 3.4-4.8 [facility] Comment on above: Performed By: #### L 100.0100, L500.4050 ####[facility] [address] [place], [address] Serum or plasma albumin/glob ulin mass ratioOrdered By: Dionne Charlotte on 09-30-2024 Albumin/Globulin [Mass ratio] 1.5 {ratio} Normal 0.9-2.4 [facility] Comment on above: Performed By: #### L 100.0100, L500.4050 ####[facility] [address] [place], [address] Serum or plasma alkaline renetta sphatase measurementOrdered By: Dionne Porter on 09-30-2024 ALP [Catalytic activity/Vol] 60 U/L 35-104 [facility] Total proteinOrdered By: Arthur Porter on 09-30-2024 Protein [Mass/Vol] 6.3 g/dL 5.9-8.4 [facility] Absolute lymphocyte countOrd ered By: Riley Jeff on 09-29-2024 Lymphocytes Auto (Unsp spec) [#/Vol] 1.40 10*3/uL 0.83-4.51 [facility] Absolute neutrophil countOrd ered By: Riley Jeff on 09-29-2024 Neutrophils (Bld) [#/Vol] 8.4 10*3/uL High 2.0-7.7 [facility] Anion gap in Serum or Plasma Ordered By: Riley Jeff on 09-29-2024 Anion gap [Moles/Vol] 10 mmol/L 5-15 [facility] Assessment of wrist artery p atency prior to arterial punctureOrdered By: Riley Jeff on 09-29-2024 Arterial patency Wrist artery --pre arterial puncture Positive [facility] Automated lymphocyte count a s percentage of total leukocytesOrdered By: Riley Jeff on 09-29-2024 Lymphocytes/100 WBC Auto (Unsp spec) 13.2 % Low 19-41 [facility] BUN/creatinine ratioOrdered By: iRley Jeff on 09-29-2024 Urea nitrogen/Creatinine [Mass ratio] 25.5 mg/mg High 10-20 [facility] Basic Metabolic Profile (BMP )on 09-29-2024 BUN/CRE 25.5 RATIO High 10-20 [facility] Comment on above: Performed By: #### L 500.2500, L501.5200, L503.7505 ####[facility] [address] [place], [address] Calcium [Mass/Vol] 8.9 mg/dL Normal 7.6-11.0 [facility] Comment on above: Performed By: #### L 500.2500, L501.5200, L503.7505 ####[facility] [address] [place], [address] Chloride [Moles/Vol] 93 mmol/L Low 98-108 [facility] Comment on above: Performed By: #### L 500.2500, L501.5200, L503.7505 ####[facility] [address] [place], [address] CO2 [Moles/Vol] 33.1 mmol/L High 21.0-32.0 [facility] Comment on above: Performed By: #### L 500.2500, L501.5200, L503.7505 ####[facility] [address] [place], [address] Creatinine [Mass/Vol] 0.70 mg/dL Normal 0.70-1.20 [facility] Comment on above: Performed By: #### L 500.2500, L501.5200, L503.7505 ####[facility] [address] [place], [address] ECRCL 64.35 ml/min Normal 50-250 [facility] Comment on above: Performed By: #### L 500.2500, L501.5200, L503.7505 ####[facility] [address] [place], [address] GAP 10 Normal 5-15 [facility] Comment on above: Performed By: #### L 500.2500, L501.5200, L503.7505 ####[facility] [address] [place], [address] GFR/1.73 sq M.predicted among non-blacks MDRD (S/P/Bld) [Vol rate/Area] 94 mL/min/{1.73_m2} Normal >60 [facility] Comment on above: Result Comment: mL/m in/1.73m2 CKD-EPI Creatinine Equation (2020) Performed By: #### L 500.2500, L501.5200, L503.7505 ####[facility] [address] [place], [address] Glucose [Mass/Vol] 129 mg/dL High 70-99 [facility] Comment on above: Performed By: #### L 500.2500, L501.5200, L503.7505 ####[facility] [address] [place], [address] Potassium [Moles/Vol] 4.4 mmol/L Normal 3.3-5.1 [facility] Comment on above: Performed By: #### L 500.2500, L501.5200, L503.7505 ####[facility] [address] [place], [address] Sodium [Moles/Vol] 136 mmol/L Normal 133-145 [facility] Comment on above: Performed By: #### L 500.2500, L501.5200, L503.7505 ####[facility] [address] [place], [address] Urea nitrogen [Mass/Vol] 18 mg/dL Normal 4-19 [facility] Comment on above: Performed By: #### L 500.2500, L501.5200, L503.7505 ####[facility] [address] [place], [address] Basophil percentageOrdered B y: Riley Jeff on 09-29-2024 Basophils/100 WBC (Bld) 0.2 % 0-1 [facility] Blood Gases by CPSon 025 CHAO TEST Positive Normal [facility] Comment on above: Performed By: #### L 9000.0800 ####[facility] [address] [place], [address] Base excess Calc (Bld) [Moles/Vol] 19 mmol/L High -2 to +2 [facility] Comment on above: Performed By: #### L 9000.0800 ####[facility] [address] [place], [address] Blood Gas Type ART Normal [facility] Comment on above: Performed By: #### L 9000.0800 ####[facility] [address] [place], [address] CO2 [Moles/Vol] 47 mmol/L Normal [facility] Comment on above: Performed By: #### L 9000.0800 ####[facility] [address] [place], [address] FI02 3.0 Normal [facility] Comment on above: Performed By: #### L 9000.0800 ####[facility] [address] [place], [address] HCO3 (Bld) [Moles/Vol] 44.5 mmol/L High 22-26 [facility] Comment on above: Performed By: #### L 9000.0800 ####[facility] [address] [place], [address] Mode Not entered Normal [facility] Comment on above: Performed By: #### L 9000.0800 ####[facility] [address] [place], [address] O2 Delivery Dev Cannula Normal [facility] Comment on above: Performed By: #### L 9000.0800 ####[facility] [address] [place], [address] pCO2 79.5 mmHg Invalid Interpretation Code 35-45 [facility] Comment on above: Performed By: #### L 9000.0800 ####[facility] [address] [place], [address] pH (Bld) 7.36 [pH] Normal 7.35-7.45 [facility] Comment on above: Performed By: #### L 9000.0800 ####[facility] [address] [place], [address] PO2 83 mmHG Normal 75-100 [facility] Comment on above: Performed By: #### L 9000.0800 ####[facility] [address] [place], [address] Read Back By Yes Normal [facility] Comment on above: Performed By: #### L 9000.0800 ####[facility] [address] [place], [address] Results To [facility] Comment on above: Performed By: #### L 9000.0800 ####[facility] [address] [place], [address] SITE L Radial Normal [facility] Comment on above: Performed By: #### L 9000.0800 ####[facility] [address] [place], [address] SO2 95 Normal 95-99 [facility] Comment on above: Performed By: #### L 9000.0800 ####[facility] [address] [place], [address] Time Given 04:48:18 Normal [facility] Comment on above: Performed By: #### L 9000.0800 ####[facility] [address] [place], [address] Blood base excess determinat ionOrdered By: Riley Jeff on 09-29-2024 Base excess Calc (BldV) [Moles/Vol] 19 mmol/L High -2-2 [facility] Blood bicarbonate measuremen tOrdered By: Riley Jeff on 09-29-2024 HCO3 (Bld) [Moles/Vol] 44.5 mmol/L High 22-26 [facility] CBC W/Diff, Automatedon 06-0 Absolute Lymph 1.40 X10 3/uL Normal 0.83-4.51 [facility] Comment on above: Performed By: #### L 100.0100 ####[facility] [address] [place], [address] Absolute Neut 8.4 X10 3/uL High 2.0-7.7 [facility] Comment on above: Performed By: #### L 100.0100 ####[facility] [address] [place], [address] Basophils/100 WBC (Bld) 0.2 % Normal 0-1 [facility] Comment on above: Performed By: #### L 100.0100 ####[facility] [address] [place], [address] Eosinophils/100 WBC (Bld) 0.7 % Normal 0-5 [facility] Comment on above: Performed By: #### L 100.0100 ####[facility] [address] [place], [address] Erythrocyte distribution width (RBC) [Ratio] 13.1 % Normal 11.6-14.6 [facility] Comment on above: Performed By: #### L 100.0100 ####[facility] [address] [place], [address] Hematocrit (Bld) [Volume fraction] 41.7 % Normal 37-47 [facility] Comment on above: Performed By: #### L 100.0100 ####[facility] [address] [place], [address] Hemoglobin (Bld) [Mass/Vol] 13.6 g/dL Normal 12.0-15.0 [facility] Comment on above: Performed By: #### L 100.0100 ####[facility] [address] [place], [address] IG% 0.500 Normal 0.0-0.9 [facility] Comment on above: Result Comment: IG% - Immature Granulocytes (promyelocytes, myelocytes andmetamyelocytes) > 1% indicates that a LEFT SHIFT is Present. Performed By: #### L 100.0100 ####[facility] [address] [place], [address] Lymphocytes/100 WBC (Bld) 13.2 % Low 19-41 [facility] Comment on above: Performed By: #### L 100.0100 ####[facility] [address] [place], [address] MCH (RBC) [Entitic mass] 27.9 pg Normal 27.0-32.0 [facility] [facility] Comment on above: Performed By: #### L 100.0100 ####[facility] [address] [place], [address] MCHC (RBC) [Mass/Vol] 32.6 g/dL Normal 32-36 [facility] Comment on above: Performed By: #### L 100.0100 ####[facility] [address] [place], [address] MCV (RBC) [Entitic vol] 85.5 fL Normal 81-99 [facility] Comment on above: Performed By: #### L 100.0100 ####[facility] [address] [place], [address] Monocytes/100 WBC (Bld) 6.9 % Normal 0-10 [facility] Comment on above: Performed By: #### L 100.0100 ####[facility] [address] [place], [address] Neutrophils/100 WBC (Bld) 78.5 % High 47-70 [facility] Comment on above: Performed By: #### L 100.0100 ####[facility] [address] [place], [address] Nucleated RBC (Bld) [#/Vol] 0 10*3/uL Normal 0-5 [facility] Comment on above: Performed By: #### L 100.0100 ####[facility] [address] [place], [address] Platelet mean volume (Bld) [Entitic vol] 9.7 fL Normal 6.2-12.0 [facility] Comment on above: Performed By: #### L 100.0100 ####[facility] [address] [place], [address] Platelets (Bld) [#/Vol] 198 10*3/uL Normal 150-450 [facility] Comment on above: Performed By: #### L 100.0100 ####[facility] [address] [place], [address] RBC (Bld) [#/Vol] 4.88 10*6/uL Normal 4.2-5.4 [facility] Comment on above: Performed By: #### L 100.0100 ####[facility] [address] [place], [address] RDW SD 40.6 fl Normal 35.1-43.9 [facility] Comment on above: Performed By: #### L 100.0100 ####[facility] [address] [place], [address] WBC (Bld) [#/Vol] 10.6 10*3/uL Normal 4.4-11.0 [facility] Comment on above: Performed By: #### L 100.0100 ####[facility] [address] [place], [address] Carbon dioxide, total [Moles /volume] in Central venous bloodOrdered By: Riley Jeff on 09-29-2024 CO2 [Moles/Vol] 33.1 mmol/L High 21.0-32.0 [facility] Chest PA and Lateralon 09-29 Chest PA and Lateral Normal [facility] Chloride assayOrdered By: Silvia Jeff on 09-29-2024 Chloride [Moles/Vol] 93 mmol/L Low 98-108 [facility] Emergency Department Summary on 09-29-2024 Emergency Department Summary Normal [facility] Eosinophil percentageOrdered By: Riley Jeff on 09-29-2024 Eosinophils/100 WBC (Bld) 0.7 % 0-5 [facility] Erythrocyte distribution wid th ratioOrdered By: Riley Jeff on 09-29-2024 Erythrocyte distribution width (RBC) [Ratio] 13.1 % 11.6-14.6 [facility] Erythrocyte distribution wid th standard deviationOrdered By: Riley Jeff on 09-29-2024 Erythrocyte distribution width (RBC) [Ratio] 40.6 fl 35.1-43.9 [facility] Glomerular filtration rate ( GFR) estimation/1.73 sq m using serum, plasma, or whole bOrdered By: Riley Jeff on 09-29-2024 GFR/1.73 sq M.predicted among non-blacks MDRD (S/P/Bld) [Vol rate/Area] 94 mL/min/{1.73_m2} >60 [facility] Comment on above: mL/min/1.73m2 CKD-EP I Creatinine Equation (2020) Gram stainOrdered By: Dionne Porter on 09-29-2024 Microscopic observation Gram stain Nom (Unsp spec) [facility] H AND P Exam - Hospitaliston 09-29-2024 H&P Exam - Hospitalist Normal [facility] Hematocrit Auto (Bld) [Volum e fraction]Ordered By: Riley Jeff on 09-29-2024 Hematocrit (Bld) [Volume fraction] 41.7 % 37-47 [facility] Hemoglobin measurementOrdere d By: Riley Jeff on 09-29-2024 Hemoglobin (Bld) [Mass/Vol] 13.6 g/dL 12.0-15.0 [facility] Immature granulocytes/100 WB C Auto (Bld)Ordered By: Riley Jeff on 09-29-2024 Immature granulocytes/100 WBC (Bld) 0.500 % 0.0-0.9 [facility] Comment on above: IG% - Immature Granu locytes (promyelocytes, myelocytes and metamyelocytes) > 1% indicates that a LEFT SHIFT is Present. Influenza virus A and B and SARS-CoV-2 (COVID-19) and Respiratory syncytial virus RNAOrdered By: Riley Jeff on 09-29-2024 SARS-CoV-2 (COVID-19) RNA ASPEN+probe Ql (Unsp spec) [facility] L503.7505on 09-29-2024 Natriuretic peptide B (Bld) [Mass/Vol] 518 pg/mL Normal <=900 [facility] Comment on above: Result Comment: Hear t Failure Unlikely: < 300 pg/mLHeart Failure Likely< 50 Years: > 450 pg/mL50-75 Years: > 900 pg/mL>75 Years: > 1800 pg/mL Performed By: #### L 500.2500, L501.5200, L503.7505 ####[facility] [address] [place], [address] L509.7001on 09-29-2024 Procalcitonin 0.04 ng/mL Normal <=0.10 [facility] Comment on above: Result Comment: Inte rpretation:<0.10-0.25 ng/mL: Antibiotic therapy discouraged. Bacterialinfection unlikely.0.25-0.50 ng/mL: Antibiotic therapy encouraged. Bacterialinfection possible.>0.50 ng/mL: Antibiotic therapy strongly encouraged.Suggestive of presence of bacterial infection.PCT should always be interpreted in the clinical context ofthe patient. Therefore, clinicians should use the PCTresults in conjunction with other laboratory findings andclinical signs of the patient. Performed By: #### L 509.7001 ####[facility] [address] [place], [address] M100.678on 09-29-2024 M100.678 Pending SARS-CoV-2 (COVID 19) Negative INFLUENZA A Negative INFLUENZA B Negative RSV PCR Negative Normal [facility] Comment on above: Performed By: #### M 100.678 ####[facility] [address] [place], [address] MCV (mean corpuscular volume ) determinationOrdered By: Riley Jeff on 09-29-2024 MCV (RBC) [Entitic vol] 85.5 fL 81-99 [facility] Magnesiumon 09-29-2024 Magnesium [Mass/Vol] 2.0 mg/dL Normal 1.5-2.2 [facility] Comment on above: Performed By: #### L 500.2500, L501.5200, L503.7505 ####[facility] [address] [place], [address] Magnesium measurement (mass/ volume)Ordered By: Riley Jeff on 09-29-2024 Magnesium (Unsp spec) [Mass/Vol] 2.0 mg/dL 1.5-2.2 [facility] Mean corpuscular hemoglobin (MCH) determinationOrdered By: Riley Jeff on 09-29-2024 MCH (RBC) [Entitic mass] 27.9 pg 27.0-32.0 [facility] Mean corpuscular hemoglobin concentration (MCHC) determinationOrdered By: Riley Jeff on 09-29-2024 MCHC (RBC) [Mass/Vol] 32.6 g/dL 32-36 [facility] Mean platelet volume determi nationOrdered By: Riley Jeff on 09-29-2024 Platelet mean volume (Bld) [Entitic vol] 9.7 fL 6.2-12.0 [facility] Measurement, pHOrdered By: Duncan Jeff on 09-29-2024 pH (Unsp spec) 7.36 [pH] 7.35-7.45 [facility] Microbial respiratory cultur eOrdered By: Dionne Porter on 09-29-2024 Microorganism identified Cx Nom (Unsp spec) Stenotrophomonas maltophilia Abnormal [facility] Microorganism identified Cx Nom (Unsp spec) Pseudomonas aeruginosa Abnormal [facility] Monocyte percentageOrdered B y: Riley Jeff on 09-29-2024 Monocytes/100 WBC (Bld) 6.9 % 0-10 [facility] Natriuretic peptide.B prohor sharee N-Terminal [Mass/volume] in Serum or PlasmaOrdered By: Riley Jeff on 09-29-2024 Natriuretic peptide.B prohormone N-Terminal [Mass/Vol] 518 pg/mL <900 [facility] Comment on above: Heart Failure Unlike ly: < 300 pg/mLHeart Failure Likely< 50 Years: > 450 pg/mL50-75 Years: > 900 pg/mL>75 Years: > 1800 pg/mL Neutrophil percentageOrdered By: Riley Jeff on 09-29-2024 Neutrophils/100 WBC (Bld) 78.5 % High 47-70 [facility] No Panel InformationOrdered By: Riley Jeff on 09-29-2024 Bld Gas Crit Called To/Read Back By Yes [facility] Blood Gas Notified Time 04:48:18 [facility] Blood Gas Notified Whom Andes [facility] Blood Gas Sample Site L Radial [facility] Blood Gas Specimen Type ART [facility] Blood Gas Vent Mode Not entered [facility] Oxygen Delivery Device Cannula [facility] ART [facility] L Radial [facility] Not entered [facility] Cannula [facility] 04:48:18 [facility] Andes [facility] Yes [facility] Nucleated red blood cell per centageOrdered By: Riley Jeff on 09-29-2024 Nucleated RBC/100 WBC (Bld) [Ratio] 0 % 0-5 [facility] Platelet countOrdered By: Silvia Jeff on 09-29-2024 Platelets (Bld) [#/Vol] 198 10*3/uL 150-450 [facility] Potassium measurement (mass/ volume)Ordered By: Riley Jeff on 09-29-2024 Potassium (Unsp spec) [Mass/Vol] 4.4 mmol/L 3.3-5.1 [facility] Procalcitonin [Mass/volume] in Serum or Plasma by ImmunoassayOrdered By: Dionne Porter on 09-29-2024 Procalcitonin IA [Mass/Vol] 0.04 ng/mL <0.11 [facility] Comment on above: Interpretation:<0.10 -0.25 [...] 09-29-2024 RBC (Bld) [#/Vol] 4.88 10*6/uL 4.2-5.4 [facility] RESPIRATORY PANEL MOLECULARo n 09-29-2024 RP PANEL Normal [facility] Comment on above: Performed By: #### M 100.638 ####[facility] [address] [place], [place], [id number] Respiratory pathogens detect ion panel by molecular detection methodOrdered By: Dionne Porter on 09-29-2024 Respiratory pathogens DNA and RNA panel ASPEN+probe (Resp) [facility] Serum creatinine measurement (mass/volume)Ordered By: Riley Jeff on 09-29-2024 Creatinine [Mass/Vol] 0.70 mg/dL 0.70-1.20 [facility] Serum glucose measurement (m ass/volume)Ordered By: Riley Jeff on 09-29-2024 Glucose [Mass/Vol] 129 mg/dL High 70-99 [facility] Serum or plasma calcium kadi urement (mass/volume)Ordered By: Riley Jeff on 09-29-2024 Calcium [Mass/Vol] 8.9 mg/dL 7.6-11.0 [facility] Serum or plasma urea nitroge n measurement (mass/volume)Ordered By: Riley Jeff on 09-29-2024 Urea nitrogen [Mass/Vol] 18 mg/dL 4-19 [facility] Sodium levelOrdered By: Brennen Jeff on 09-29-2024 Sodium [Moles/Vol] 136 mmol/L 133-145 [facility] Total carbon dioxide measure mentOrdered By: Riley Jeff on 09-29-2024 CO2 [Moles/Vol] 47 mmol/L [facility] White blood cell (WBC) count Ordered By: Riley Jeff on 09-29-2024 WBC (Bld) [#/Vol] 10.6 10*3/uL 4.4-11.0 [facility] CNPNon 07-24-2024 CNPN Telephone (FAMPWS) DENIA [id number]) 1955 F Date Time Provider Department 07/24/24 [...] rash. 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 Dx: COPD J44.9 - [facility] and supplies as needed - PULSE OXIMETER [facility] Use as directed to check oxygen saturation level - ammonium lactate (AMLACTIN) 12 % lotion Apply 1 application to affected area as needed for Dry Skin. - losartan (COZAAR) 50 mg tablet Take 0.5 tablets by mouth once daily. - OXYGEN, HOME THERAPY, 2.5 L/min by Nasal Cannula route continuous. Use as directred - Disposable Gloves (DISPOSABLE LATEX-FREE GLOVES) [facility] 1 Box once [...] classification (HC (more content not included)... [facility]ON[facility]ALE[facility] ([id number]) 1955 F Date Time Provider Department 07/12/24 [facility] During your visit today, we recorded the following information about you: Sukhi Marrero, RN 07/12/2024 2:51 PM [facility] calls to request chart notes to support patients need for continued oxygen. Most recent visits have all been [facility]. Jenni requests most recent visit be faxed. Faxed to [phone] per request. Sukhi Marrero RN Allergies As [...] directed. Dx: COPD J44.9 - Nebulizer Accessories [facility] Mask and supplies as needed - PULSE OXIMETER [facility] Use as directed to check oxygen saturation level - ammonium lactate (AMLACTIN) 12 % lotion Apply 1 application to affected area as needed for Dry Skin. - losartan (COZAAR) 50 mg tablet Take 0.5 tablets by mouth once daily. - OXYGEN, HOME THERAPY, 2.5 L/min by Nasal Cannula route continuous. Use as directred - Disposable Gloves (DISPOSABLE LATEX-FREE GLOVES) [facility] 1 Box once [...] Encounter Status:Closed by SUKHI MARRERO on 07/12/24 [facility] 06-12-2024 CNPN Telephone [facility] DENIA GONZALEZ ([id number]) 1955 F Date Time Provider Department 06/12/24 [facility]OSEPH FALL [facility] During your visit today, we recorded the following information about you: Martha Baca MA 06/12/2024 12:44 PM Signed Type of form: Medical Necessity for incontinence supplies. Form received via fax When form is completed, Fax form to [phone] Form has been forwarded to Physician Desk: [...] directed. Dx: COPD J44.9 - Nebulizer Accessories [facility] Mask and supplies as needed - PULSE OXIMETER [facility] Use as directed to check oxygen saturation level - ammonium lactate (AMLACTIN) 12 % lotion Apply 1 application to affected area as needed for Dry Skin. - losartan (COZAAR) 50 mg tablet Take 0.5 tablets by mouth once daily. - OXYGEN, HOME THERAPY, 2.5 L/min by Nasal Cannula route continuous. Use as directred - Disposable Gloves (DISPOSABLE LATEX-FREE GLOVES) [facility] 1 Box once [...] Encounter Status:Closed by MARTHA BACA [facility] ([facility]) DENIA GONZALEZ ([id number]) 1955 F Date Time Provider Department 06/02/24 YOSEPH FALL [facility] During your visit today, we recorded the following information about you: Ban Villafana LPN 06/02/2024 8:13 AM Signed Electronic PA rec'd and completed for cyclobenzaprine. This was denied. Note from payer: CaseId:[id number];Statu s:Denied;Review Type:Prior Auth;Appeal Information: Attention:ATTN: MEDICARE [employer] [address] [address],[place], [place],[address] WebAddress:[email or web address]; Important - Please read the below note [...] the appeal.; Payer: [employer] [phone] Electronic appeal: Supported View History Notes Time [...] to its destination. To be filled at: [facility] [address] [place] [phone] [address] [facility] - [phone] Allergies As of Date: 06/02/2024 (No Known [...] directed. Dx: COPD J44.9 - Nebulizer Accessories [facility] Mask and supplies as needed - PULSE OXIMETER [facility] Use as directed to check oxygen saturation level - ammonium lactate (AMLACTIN) 12 % lotion Apply 1 application to affected area as needed for Dry Skin. - losartan (COZAAR) 50 mg tablet Take 0.5 tablets by mouth once daily. - OXYGEN, HOME THERAPY, 2.5 L/min by Nasal Cannula route continuous. Use as directred - Disposable Gloves (DISPOSABLE LATEX-FREE GLOVES) [facility] 1 Box once [...] Noted Reso (more content not included)... [facility] CNPN Telephone (FAMWS) DENIA GONZALEZ ([id number]) 1955 F Date Time Provider Department 03/21/24 YOSEPH FALL [facility] During your visit today, we recorded the [...] Please review and advise, KAREN Werner Ashley, APRN.[facility] 03/22/2024 8:51 AM Signed The following [...] directed. Dx: COPD J44.9 - Nebulizer Accessories [facility] Mask and supplies [...] directred - Disposable Gloves (DISPOSABLE LATEX-FREE GLOVES) [facility] 1 Box once [...] PAP S (more content not included)... Normal [facility] [place] 02-03-2024 [place] Telephone (FAMPWS) DENIA GONZALEZ ([id number]) 1955 F Date Time Provider Department 02/03/24 [...] Fully Assessed Reason for Visit: Patient Question [8607] Order(s):amoxicillin (AMOXIL) 875 mg tabletTake 1 tablet [...] directed. Dx: COPD J44.9 - Nebulizer Accessories [facility] Mask and supplies as needed - PULSE OXIMETER [facility] Use as directed to check oxygen saturation level - ammonium lactate (AMLACTIN) 12 % lotion Apply 1 application to affected area as needed for Dry Skin. - losartan (COZAAR) 50 mg tablet Take 0.5 tablets by mouth once daily. - OXYGEN, HOME THERAPY, 2.5 L/min by Nasal Cannula route continuous. Use as directred - Disposable Gloves (DISPOSABLE LATEX-FREE GLOVES) [facility] 1 Box once [...] [K59.00] 06/21/2016 (more content not included)... [facility] DENIA GONZALEZ ([id number]) 1955 F Date Time Provider Department 02/03/24 [facility] During your visit today, we recorded the [...] directed. Dx: COPD J44.9 - Nebulizer Accessories [facility] Mask and supplies as needed - PULSE OXIMETER [facility] Use as directed to check oxygen saturation level - ammonium lactate (AMLACTIN) 12 % lotion Apply 1 application to affected area as needed for Dry Skin. - losartan (COZAAR) 50 mg tablet Take 0.5 tablets by mouth once daily. - OXYGEN, HOME THERAPY, 2.5 L/min by Nasal Cannula route continuous. Use as directred - Disposable Gloves (DISPOSABLE LATEX-FREE GLOVES) [facility] 1 Box once [...] Status:Closed by Martínez LOUIE on 02/03/24 Normal [facility] Absolute lymphocyte countOrd ered By: Jan Bolanos on 07-21-2023 Lymphocytes Auto (Unsp spec) [#/Vol] 0.61 10*3/uL 0.83-4.51 [facility] Automated lymphocyte count a s percentage of total leukocytesOrdered By: Jan Bolanos on 07-21-2023 Lymphocytes/100 WBC Auto (Unsp spec) 8.8 % 19-41 [facility] Basophil percentageOrdered B y: Jan Bolanos on 07-21-2023 Basophils/100 WBC (Bld) 0.0 % 0-1 [facility] Chloride [Moles/Vol] 107 mmol/L 98-107 [facility] Eosinophils/100 WBC (Bld) 0.0 % 0-5 [facility] Glucose [Mass/Vol] 140 mg/dL 74-106 [facility] Comment on above: Fasting Glucose resu lt greater than or equal to 126 mg/dL suggests DIABETES MELLITUS per A.D.A. criteria. Hemoglobin (Bld) [Mass/Vol] 12.0 g/dL 12.0-15.0 [facility] Monocytes/100 WBC (Bld) 2.7 % 0-10 [facility] Neutrophils (Bld) [#/Vol] 6.1 10*3/uL 2.0-7.7 [facility] Neutrophils/100 WBC (Bld) 88.1 % 47-70 [facility] Potassium [Moles/Vol] 4.1 mmol/L 3.5-5.1 [facility] Sodium [Moles/Vol] 140 mmol/L 136-145 [facility] WBC (Bld) [#/Vol] 6.9 10*3/uL 4.4-11.0 [facility] Determination of erythrocyte mean corpuscular volume (MCV)Ordered By: Jan Bolanos on 07-21-2023 MCV (RBC) [Entitic vol] 82.7 fL 81-99 [facility] Erythrocyte distribution wid th ratioOrdered By: Jan Bolanos on 07-21-2023 Erythrocyte distribution width (RBC) [Ratio] 13.4 % 11.6-14.6 [facility] Erythrocyte distribution wid th standard deviationOrdered By: Jan Bolanos on 07-21-2023 Erythrocyte distribution width (RBC) [Entitic vol] 40.3 fL 35.1-43.9 [facility] Gram stain for investigation of transfusion reactionOrdered By: Jan Bolanos on 07-21-2023 Microscopic observation Gram stain Nom (Unsp spec) [facility] Hematocrit Auto (Bld) [Volum e fraction]Ordered By: Jan Bolanos on 07-21-2023 Hematocrit (Bld) [Volume fraction] 37.4 % 37-47 [facility] Immature granulocytes/100 WB C Auto (Bld)Ordered By: Jan Bolanos on 07-21-2023 Immature granulocytes/100 WBC (Bld) 0.400 % 0.0-0.9 [facility] Comment on above: IG% - Immature Granu locytes (promyelocytes, myelocytes and metamyelocytes) > 1% indicates that a LEFT SHIFT is Present. Laboratory - Chemistry and C hemistry - challengeOrdered By: Jan Bolanos on 07-21-2023 CO2 [Moles/Vol] 30.0 mmol/L 21.0-32.0 [facility] Urea nitrogen/Creatinine [Mass ratio] 27.8 mg/mg 10-20 [facility] Laboratory - Hematology and Cell countsOrdered By: Jan Bolanos on 07-21-2023 MCH (RBC) [Entitic mass] 26.5 pg 27.0-32.0 [facility] MCHC (RBC) [Mass/Vol] 32.1 g/dL 32-36 [facility] Nucleated RBC/100 WBC (Bld) [Ratio] 0 % 0-5 [facility] Platelet mean volume (Bld) [Entitic vol] 9.9 fL 6.2-12.0 [facility] Platelets (Bld) [#/Vol] 210 10*3/uL 150-450 [facility] No Panel InformationOrdered By: Jan Bolanos on 07-21-2023 Estimated Creatinine Clearance Calc 64.83 ml/min [facility] Estimated GFR (MDRD) Amer 170 mL/min >60 [facility] Comment on above: GFR Calc Estimated GFR (MDRD) Non-Af Amer 141 mL/min >60 [facility] Comment on above: Non- GFR Calc RBC Auto (Bld) [#/Vol]Ordere d By: Jan Bolanos on 07-21-2023 RBC (Bld) [#/Vol] 4.52 10*6/uL 4.2-5.4 [facility] Serum or plasma calcium kadi urement (mass/volume)Ordered By: Jan Bolanos on 07-21-2023 Calcium [Mass/Vol] 8.6 mg/dL 8.5-10.1 [facility] Serum or plasma creatinine m easurement (mass/volume)Ordered By: Jan Bolanos on 07-21-2023 Creatinine [Mass/Vol] 0.47 mg/dL 0.55-1.02 [facility] Comment on above: The validity of the calculated GFR & GFRAA in patients over 70 years has not been determined. Clinical correlation is essential. Serum or plasma urea nitroge n measurement (mass/volume)Ordered By: Jan Bolanos on 07-21-2023 Urea nitrogen [Mass/Vol] 13 mg/dL 7-18 [facility] Thin prep Papanicolaou smear with manual screeningOrdered By: Jan Bolanos on 07-21-2023 Thin prep Papanicolaou smear with manual screening 3 5-15 [facility] Absolute lymphocyte countOrd ered By: Dallas Mena on 07-20-2023 Lymphocytes Auto (Unsp spec) [#/Vol] 2.11 10*3/uL 0.83-4.51 [facility] Automated lymphocyte count a s percentage of total leukocytesOrdered By: Dallas Mena on 07-20-2023 Lymphocytes/100 WBC Auto (Unsp spec) 23.7 % 19-41 [facility] Basophil percentageOrdered B y: José Smith on 07-20-2023 Basophil percentage 2.4 mg/dL 2.5-4.9 [facility] Bilirubin [Mass/Vol] 0.40 mg/dL 0.20-1.00 [facility] Comment on above: For patients on eltr ombopag therapy, use of Dimension Farley TBIL is not recommended. Protein [Mass/Vol] 7.4 g/dL 6.4-8.2 [facility] Basophil percentageOrdered B y: Dallas Mena on 07-20-2023 Basophils/100 WBC (Bld) 0.3 % 0-1 [facility] Chloride [Moles/Vol] 101 mmol/L 98-107 [facility] Eosinophils/100 WBC (Bld) 0.6 % 0-5 [facility] Glucose [Mass/Vol] 129 mg/dL 74-106 [facility] Comment on above: Fasting Glucose resu lt greater than or equal to 126 mg/dL suggests DIABETES MELLITUS per A.D.A. criteria. Hemoglobin (Bld) [Mass/Vol] 14.1 g/dL 12.0-15.0 [facility] Monocytes/100 WBC (Bld) 7.6 % 0-10 [facility] Neutrophils (Bld) [#/Vol] 6.0 10*3/uL 2.0-7.7 [facility] Neutrophils/100 WBC (Bld) 67.5 % 47-70 [facility] Potassium [Moles/Vol] 3.8 mmol/L 3.5-5.1 [facility] Sodium [Moles/Vol] 139 mmol/L 136-145 [facility] WBC (Bld) [#/Vol] 8.9 10*3/uL 4.4-11.0 [facility] Determination of erythrocyte mean corpuscular volume (MCV)Ordered By: Dallas Mena on 07-20-2023 MCV (RBC) [Entitic vol] 82.8 fL 81-99 [facility] Erythrocyte distribution wid th ratioOrdered By: Dallas Mena on 07-20-2023 Erythrocyte distribution width (RBC) [Ratio] 13.6 % 11.6-14.6 [facility] Erythrocyte distribution wid th standard deviationOrdered By: Dallas Mena on 07-20-2023 Erythrocyte distribution width (RBC) [Entitic vol] 41.0 fL 35.1-43.9 [facility] Hematocrit Auto (Bld) [Volum e fraction]Ordered By: Dallas Mena on 07-20-2023 Hematocrit (Bld) [Volume fraction] 44.2 % 37-47 [facility] Immature granulocytes/100 WB C Auto (Bld)Ordered By: Dallas Mena on 07-20-2023 Immature granulocytes/100 WBC (Bld) 0.300 % 0.0-0.9 [facility] Comment on above: IG% - Immature Granu locytes (promyelocytes, myelocytes and metamyelocytes) > 1% indicates that a LEFT SHIFT is Present. Laboratory - Chemistry and C hemistry - challengeOrdered By: José Smith on 07-20-2023 Albumin/Globulin [Mass ratio] 0.8 {ratio} 0.9-2.4 [facility] ALP [Catalytic activity/Vol] 72 U/L 45-117 [facility] ALT [Catalytic activity/Vol] 15 U/L 13-56 [facility] Globulin (S) [Mass/Vol] 4.0 g/dL 2.2-4.2 [facility] Magnesium [Mass/Vol] 2.1 mg/dL 1.6-2.6 [facility] - Chemistry and C hemistry - challengeOrdered By: Dallas Mena on 07-20-2023 CO2 [Moles/Vol] 33.0 mmol/L 21.0-32.0 [facility] Urea nitrogen/Creatinine [Mass ratio] 18.7 mg/mg 10-20 [facility] Laboratory - Hematology and Cell countsOrdered By: Dallas Mena on 07-20-2023 MCH (RBC) [Entitic mass] 26.4 pg 27.0-32.0 [facility] MCHC (RBC) [Mass/Vol] 31.9 g/dL 32-36 [facility] Nucleated RBC/100 WBC (Bld) [Ratio] 0 % 0-5 [facility] Platelet mean volume (Bld) [Entitic vol] 9.9 fL 6.2-12.0 [facility] Platelets (Bld) [#/Vol] 233 10*3/uL 150-450 [facility] - Microbiology an d Antimicrobial susceptibilityOrdered By: Dallas Mena on 07-20-2023 SARS-CoV-2 (COVID-19) RNA ASPEN+probe Ql (Unsp spec) [facility] No Panel InformationOrdered By: Dallas Mena on 07-20-2023 Estimated Creatinine Clearance Calc 65.47 ml/min [facility] Estimated GFR (MDRD) Amer 108 mL/min >60 [facility] Comment on above: GFR Calc Estimated GFR (MDRD) Non-Af Amer 89 mL/min >60 [facility] Comment on above: Non- GFR Calc RBC Auto (Bld) [#/Vol]Ordere d By: Dallas Mena on 07-20-2023 RBC (Bld) [#/Vol] 5.34 10*6/uL 4.2-5.4 [facility] Serum or plasma calcium kadi urement (mass/volume)Ordered By: Dallas Mena on 07-20-2023 Calcium [Mass/Vol] 8.8 mg/dL 8.5-10.1 [facility] Serum or plasma creatinine m easurement (mass/volume)Ordered By: Dallas Mena on 07-20-2023 Creatinine [Mass/Vol] 0.70 mg/dL 0.55-1.02 [facility] Comment on above: The validity of the calculated GFR & GFRAA in patients over 70 years has not been determined. Clinical correlation is essential. Serum or plasma thyroid stim ulating hormone (TSH) measurement (units/volume)Ordered By: José Smith on 07-20-2023 TSH Qn 0.35 uIU/mL 0.358-3.74 [facility] Serum or plasma urea nitroge n measurement (mass/volume)Ordered By: Dallas Mena on 07-20-2023 Urea nitrogen [Mass/Vol] 13 mg/dL 7-18 [facility] Thin prep Papanicolaou smear with manual screeningOrdered By: José Smith on 07-20-2023 Thin prep Papanicolaou smear with manual screening 3.4 g/dL 3.2-5.0 [facility] Thin prep Papanicolaou smear with manual screening 13 U/L 15-37 [facility] Thin prep Papanicolaou smear with manual screeningOrdered By: Dallas Mena on 07-20-2023 Thin prep Papanicolaou smear with manual screening 5 5-15 [facility] FECAL OCCULT BLOOD TESTon Lower GI hemoglobin IA Ql (Stl) Negative Negative [facility] OXIMETRY WITH AMBULATIONon 1 [facility] Vital Signs Date Time Vital Sign Value Performing Clinician Faci lity 02-08-2025 09:25-0400 Body height 162.[address] Yoseph Fall MD Work Phone: 3(507)858-163275 [place] [address] 02-08-2025 09:25-0400 Body mass index (BMI) [Ratio] 24.9 kg/m2 Dr. Yoseph Fall MD Work Phone: 8(280)112-557575 [place] [address] 02-08-2025 09:25-0400 Body weight 65.[address] Yoseph Fall MD Work Phone: [facility] 02-08-2025 09:25-0400 Diastolic blood pressure 63 mm[Hg] Dr. Yoseph Fall MD Work Phone: 3(699)550-171275 [place] [address] 02-08-2025 09:25-0400 Inhaled oxygen flow rate 3 L/min Dr. Yoseph Fall MD Work Phone: [facility] 02-08-2025 09:25-0400 Respiratory rate 18 /min Dr. Yoseph Fall MD Work Phone: 3(306)718-203375 [place] [address] 02-08-2025 09:25-0400 SaO2% (BldA) [Mass fraction] 98 % Dr. Yoseph Fall MD Work Phone: [facility] 02-08-2025 09:25-0400 Systolic blood pressure 105 mm[Hg] Dr. Yoseph Fall MD Work Phone: 6(653)604-478671 [place] [address] 01-31-2025 20:15-0400 Body temperature 97.7 [degF] Dr. Yoseph Fall MD Work Phone: 5(832)269-802671 [place] [address] 01-31-2025 20:15-0400 Diastolic blood pressure 68 mm[Hg] Dr. Yoseph Fall MD Work Phone: 0(464)436-835771 [place] [address] 01-31-2025 20:15-0400 Heart rate 92 /min Dr. Yoseph Fall MD Work Phone: 0(610)762-031871 [place] [address] 01-31-2025 20:15-0400 Inhaled oxygen flow rate 4 L/min Dr. Yoseph Fall MD Work Phone: 7(321)544-970271 [place] [address] 01-31-2025 20:15-0400 Respiratory rate 19 /min Dr. Yoseph Fall MD Work Phone: 8(379)047-839571 [place] [address] 01-31-2025 20:15-0400 SaO2% (BldA) [Mass fraction] 97 % Dr. Yoseph Fall MD Work Phone: 0(753)914-339371 [place] [address] 01-31-2025 20:15-0400 Systolic blood pressure 111 mm[Hg] Dr. Yoseph Fall MD Work Phone: 2(218)898-605071 [place] [address] 01-31-2025 03:19-0400 Inhaled oxygen concentration 35 % Dr. Yoseph Fall MD Work Phone: 8(235)934-015971 [place] [address] 01-31-2025 02:58-0400 Body mass index (BMI) [Ratio] 24.9 kg/m2 Dr. Yoseph Fall MD Work Phone: 7(178)300-866371 [place] [address] 01-31-2025 02:58-0400 Body weight 66.[address] Yoseph Fall MD Work Phone: 7(505)561-034471 [place] [address] 01-29-2025 09:27-0400 Body height 162.[address] Yoseph Fall MD Work Phone: 0(024)963-249971 [place] [address] 01-25-2025 13:31-0400 Heart rate 89 /min Dr. Yoseph Fall MD Work Phone: 7(118)314-085071 [place] [address] 01-25-2025 13:31-0400 Inhaled oxygen concentration 40 % Dr. Yoseph Fall MD Work Phone: 5(562)722-887171 [place] [address] 01-25-2025 13:31-0400 Respiratory rate 12 /min Dr. Yoseph Fall MD Work Phone: 6(380)694-290071 [place] [address] 01-25-2025 13:31-0400 SaO2% (BldA) [Mass fraction] 100 % Dr. Yoseph Fall MD Work Phone: 9(379)815-772471 [place] [address] 01-25-2025 12:00-0400 Body temperature 101.2 [degF] Dr. Yoseph Fall MD Work Phone: 9(076)708-844371 [place] [address] 01-25-2025 12:00-0400 Diastolic blood pressure 57 mm[Hg] Dr. Yoseph Fall MD Work Phone: 0(493)435-073871 [place] [address] 01-25-2025 12:00-0400 Systolic blood pressure 100 mm[Hg] Dr. Yoseph Fall MD Work Phone: 5(501)147-842571 [place] [address] 01-25-2025 11:47-0400 Body height 162.[address] Yoseph Fall MD Work Phone: 8(235)446-067971 [place] [address] 01-25-2025 11:47-0400 Body mass index (BMI) [Ratio] 27.8 kg/m2 Dr. Yoseph Fall MD Work Phone: 3(192)081-294071 [place] [address] 01-25-2025 11:47-0400 Body weight 73.[address] Yoseph Fall MD Work Phone: 2(483)710-988971 [place] [address] 01-25-2025 10:39-0400 Inhaled oxygen concentration 40 % Dr. Yoseph Fall MD Work Phone: 7(471)578-660171 [place] [address] 01-25-2025 10:39-0400 Respiratory rate 14 /min Dr. Yoseph Fall MD Work Phone: 4(523)339-423871 [place] [address] 01-25-2025 10:22-0400 Body temperature 100.6 [degF] Dr. Yoseph Fall MD Work Phone: 0(528)910-235271 [place] [address] 01-25-2025 10:22-0400 Diastolic blood pressure 88 mm[Hg] Dr. Yoseph Fall MD Work Phone: 9(918)562-762971 [place] [address] 01-25-2025 10:22-0400 Heart rate 100 /min Dr. Yoseph Fall MD Work Phone: 0(250)226-304871 [place] [address] 01-25-2025 10:22-0400 SaO2% (BldA) [Mass fraction] 95 % Dr. Yoseph Fall MD Work Phone: 0(395)244-564471 [place] [address] 01-25-2025 10:22-0400 Systolic blood pressure 111 mm[Hg] Dr. Yoseph Fall MD Work Phone: 5(270)072-442471 [place] [address] 01-25-2025 09:04-0400 Inhaled oxygen flow rate 8 L/min Dr. Yoseph Fall MD Work Phone: 9(718)680-536571 [place] [address] 01-25-2025 08:25-0400 Body height 162.[address] Yoseph Fall MD Work Phone: 0(724)743-075871 [place] [address] 01-25-2025 08:25-0400 Body mass index (BMI) [Ratio] 28.2 kg/m2 Dr. Yoseph Fall MD Work Phone: 7(710)523-717971 [place] [address] 01-25-2025 08:25-0400 Body weight 74.[address] Yoseph Fall MD Work Phone: 6(933)689-001871 [place] [address] 01-05-2025 15:00-0400 Diastolic blood pressure 82 mm[Hg] Zaria Shea MD Work Phone: [facility] 01-05-2025 15:00-0400 Heart rate 100 /min Zaria Shea MD Work Phone: [facility] 01-05-2025 15:00-0400 Respiratory rate 20 /min Zaria Shea MD Work Phone: [facility] 01-05-2025 15:00-0400 Systolic blood pressure 128 mm[Hg] Zaria Shea MD Work Phone: [facility] 01-05-2025 14:15-0400 SaO2% (BldA) [Mass fraction] 97 % Zaria Shea MD Work Phone: [facility] 01-05-2025 09:26-0400 Body temperature 98.01 [degF] Zaria Shea MD Work Phone: [facility] 12-30-2024 13:09-0400 Body temperature 98.1 [degF] Dr. Yoseph Fall MD Work Phone: 6(754)232-236675 [place] [address] 12-30-2024 13:09-0400 Diastolic blood pressure 52 mm[Hg] Dr. Yoseph Fall MD Work Phone: 7(241)520-107225 [address] 12-30-2024 13:09-0400 Heart rate 91 /min Dr. Yoseph Fall MD Work Phone: 1(089)774-881975 [place] [address] 12-30-2024 13:09-0400 Inhaled oxygen flow rate 2 L/min Dr. Yoseph Fall MD Work Phone: 9(280)942-871875 [place] [address] 12-30-2024 13:09-0400 Respiratory rate 18 /min Dr. Yoseph Fall MD Work Phone: 2(924)595-344625 [address] 12-30-2024 13:09-0400 SaO2% (BldA) [Mass fraction] 99 % Dr. Yoseph Fall MD Work Phone: [facility] 12-30-2024 13:09-0400 Systolic blood pressure 108 mm[Hg] Dr. Yoseph Fall MD Work Phone: [facility] 12-30-2024 05:14-0400 Body mass index (BMI) [Ratio] 27.4 kg/m2 Dr. Yoseph Fall MD Work Phone: [facility] 12-30-2024 05:14-0400 Body weight 72.[address] Yoseph Fall MD Work Phone: 5(623)731-867775 [place] [address] 12-28-2024 11:25-0400 Inhaled oxygen concentration 30 % Dr. Yoseph Fall MD Work Phone: 7(155)936-109071 [place] [address] 12-28-2024 09:46-0400 Body height 162.[address] Yoseph Fall MD Work Phone: 5(761)084-933771 [place] [address] 12-27-2024 15:13-0400 Body height 162.[address] Yoseph Fall MD Work Phone: 3(932)121-537271 [place] [address] 12-27-2024 15:13-0400 Body weight 71.[address] Yoseph Fall MD Work Phone: 8(466)983-506771 [place] [address] 12-27-2024 14:31-0400 Heart rate 94 /min Dr. Yoseph Fall MD Work Phone: 4(371)679-936671 [place] [address] 12-27-2024 14:31-0400 Respiratory rate 18 /min Dr. Yoseph Fall MD Work Phone: 7(840)414-861371 [place] [address] 12-27-2024 10:15-0400 Body temperature 98.3 [degF] Dr. Yoseph Fall MD Work Phone: 7(311)787-059971 [place] [address] 12-27-2024 10:15-0400 Diastolic blood pressure 70 mm[Hg] Dr. Yoseph Fall MD Work Phone: 0(004)374-975971 [place] [address] 12-27-2024 10:15-0400 Inhaled oxygen flow rate 3 L/min Dr. Yoseph Fall MD Work Phone: 5(122)183-547571 [place] [address] 12-27-2024 10:15-0400 SaO2% (BldA) [Mass fraction] 96 % Dr. Yoseph Fall MD Work Phone: 5(003)910-026371 [place] [address] 12-27-2024 10:15-0400 Systolic blood pressure 131 mm[Hg] Dr. Yoseph Fall MD Work Phone: 7(476)546-529971 [place] [address] 12-27-2024 05:15-0400 Body mass index (BMI) [Ratio] 26.7 kg/m2 Dr. Yoseph Fall MD Work Phone: 2(057)529-123871 [place] [address] 12-26-2024 20:00-0400 Diastolic blood pressure 81 mm[Hg] Dr. Yoseph Fall MD Work Phone: 2(749)510-187671 [place] [address] 12-26-2024 20:00-0400 Heart rate 106 /min Dr. Yoseph Fall MD Work Phone: 1(365)327-391971 [place] [address] 12-26-2024 20:00-0400 Inhaled oxygen flow rate 3 L/min Dr. Yoseph Fall MD Work Phone: 3(698)967-675771 [place] [address] 12-26-2024 20:00-0400 Respiratory rate 18 /min Dr. Yoseph Fall MD Work Phone: 0(677)469-618071 [place] [address] 12-26-2024 20:00-0400 SaO2% (BldA) [Mass fraction] 97 % Dr. Yoseph Fall MD Work Phone: 9(830)989-815871 [place] [address] 12-26-2024 20:00-0400 Systolic blood pressure 138 mm[Hg] Dr. Yoseph Fall MD Work Phone: 4(391)599-923871 [place] [address] 12-26-2024 19:58-0400 Body temperature 98.6 [degF] Dr. Yoseph Fall MD Work Phone: 6(748)220-993371 [place] [address] 12-26-2024 16:37-0400 Body mass index (BMI) [Ratio] 28 kg/m2 Dr. Yoseph Fall MD Work Phone: 8(407)807-562171 [place] [address] 12-26-2024 16:37-0400 Body weight [address] Yoseph Fall MD Work Phone: 5(809)866-701471 [place] [address] 12-26-2024 13:53-0400 Body height 162.[address] Yoseph Fall MD Work Phone: 2(181)585-211471 [place] [address] 12-15-2024 15:04-0400 Diastolic blood pressure 80 mm[Hg] Zaria Shea MD Work Phone: [facility] 12-15-2024 15:04-0400 Systolic blood pressure 130 mm[Hg] Zaria Shea MD Work Phone: [facility] 12-15-2024 14:45-0400 Body height 162.6 cm Rubi Corbett MD Work Phone: [facility] [employer] 12-15-2024 14:45-0400 Body mass index (BMI) [Ratio] 26.61 kg/m2 Rubi Corbett MD Work Phone: [facility] [employer] 12-15-2024 14:45-0400 Body weight 70.31 kg Rubi Corbett MD Work Phone: [facility] [employer] 12-15-2024 14:45-0400 Diastolic blood pressure 90 mm[Hg] Rubi Corbett MD Work Phone: [facility] [employer] 12-15-2024 14:45-0400 Heart rate 99 /min Rubi Corbett MD Work Phone: [facility] [employer] 12-15-2024 14:45-0400 SaO2% (BldA) [Mass fraction] 93 % Rubi Corbett MD Work Phone: [facility] [employer] 12-15-2024 14:45-0400 Systolic blood pressure 164 mm[Hg] Rubi Corbett MD Work Phone: [facility] [employer] 12-15-2024 14:36-0400 Body height 162.6 cm Zaria Shea MD Work Phone: [facility] [employer] 12-15-2024 14:36-0400 Body mass index (BMI) [Ratio] 26.61 kg/m2 Zaria Shea MD Work Phone: [facility] [employer] 12-15-2024 14:36-0400 Body weight 70.31 kg Zaria Shea MD Work Phone: [facility] [employer] 12-15-2024 14:36-0400 Heart rate 99 /min Zaria Shea MD Work Phone: [facility] [employer] 12-15-2024 14:36-0400 SaO2% (BldA) [Mass fraction] 93 % Zaria Shea MD Work Phone: [facility] [employer] 11-03-2024 13:06-0400 Body height 162.[address] Yoseph Fall MD Work Phone: [facility] 11-03-2024 13:06-0400 Body mass index (BMI) [Ratio] 25.9 kg/m2 Dr. Yoseph Fall MD Work Phone: [facility] 11-03-2024 13:06-0400 Body weight 68.[address] Yoseph Fall MD Work Phone: 3(384)856-023925 [address] 11-03-2024 13:06-0400 Diastolic blood pressure 65 mm[Hg] Dr. Yoseph Fall MD Work Phone: 5(616)401-038771 [place] [address] 11-03-2024 13:06-0400 Heart rate 86 /min Dr. Yoseph Fall MD Work Phone: 2(497)011-948625 [address] 11-03-2024 13:06-0400 Respiratory rate 20 /min Dr. Yoseph Fall MD Work Phone: [facility] 11-03-2024 13:06-0400 Systolic blood pressure 110 mm[Hg] Dr. Yoseph Fall MD Work Phone: [facility] 10-17-2024 14:32-0400 Body mass index (BMI) [Ratio] 26.22 kg/m2 Yoseph Fall MD Work Phone: [facility] 10-17-2024 14:32-0400 Body temperature 97.81 [degF] Yoseph Fall MD Work Phone: [facility] 10-17-2024 14:32-0400 Body weight 67.13 kg Yoseph Fall MD Work Phone: [facility] 10-17-2024 14:32-0400 Diastolic blood pressure 64 mm[Hg] Yoseph Fall MD Work Phone: [facility] 10-17-2024 14:32-0400 Heart rate 82 /min Yoseph Fall MD Work Phone: [facility] 10-17-2024 14:32-0400 SaO2% (BldA) [Mass fraction] 94 % Yoseph Fall MD Work Phone: [facility] 10-17-2024 14:32-0400 Systolic blood pressure 105 mm[Hg] Yoseph Fall MD Work Phone: [facility] 10-09-2024 15:47-0400 Heart rate 109 /min Dr. Yoseph Fall MD Work Phone: 6(623)499-981275 [place] [address] 10-09-2024 15:47-0400 Respiratory rate 20 /min Dr. Yoseph Fall MD Work Phone: 7(149)836-152071 [place] [address] 10-09-2024 15:37-0400 Inhaled oxygen flow rate 2 L/min Dr. Yoseph Fall MD Work Phone: 6(723)225-192571 [place] [address] 10-09-2024 15:35-0400 Body temperature 98.1 [degF] Dr. Yoseph Fall MD Work Phone: 5(956)936-111171 [place] [address] 10-09-2024 15:35-0400 Diastolic blood pressure 72 mm[Hg] Dr. Yoseph Fall MD Work Phone: 6(632)943-105471 [place] [address] 10-09-2024 15:35-0400 SaO2% (BldA) [Mass fraction] 97 % Dr. Yoseph Fall MD Work Phone: 2(823)069-947771 [place] [address] 10-09-2024 15:35-0400 Systolic blood pressure 142 mm[Hg] Dr. Yoseph Fall MD Work Phone: 2(864)853-420671 [place] [address] 10-09-2024 04:58-0400 Body mass index (BMI) [Ratio] 26.1 kg/m2 Dr. Yoseph Fall MD Work Phone: 7(892)116-442071 [place] [address] 10-09-2024 04:58-0400 Body weight 69.[address] Yoseph Fall MD Work Phone: 9(154)490-025771 [place] [address] 10-08-2024 11:37-0400 Body height 162.[address] Yoseph Fall MD Work Phone: 6(136)836-332771 [place] [address] 09-30-2024 22:20-0400 Inhaled oxygen concentration 30 % Dr. Yoseph Fall MD Work Phone: 2(506)426-359771 [place] [address] 09-29-2024 05:00-0400 Body temperature 98.8 [degF] Dr. Yoseph Fall MD Work Phone: 7(710)255-712871 [place] [address] 09-29-2024 05:00-0400 Diastolic blood pressure 65 mm[Hg] Dr. Yoseph Fall MD Work Phone: 3(530)730-132871 [place] [address] 09-29-2024 05:00-0400 Heart rate 111 /min Dr. Yoseph Fall MD Work Phone: 6(287)327-281471 [place] [address] 09-29-2024 05:00-0400 Respiratory rate 21 /min Dr. Yoseph Fall MD Work Phone: 8(108)665-040071 [place] [address] 09-29-2024 05:00-0400 SaO2% (BldA) [Mass fraction] 96 % Dr. Yoseph Fall MD Work Phone: 5(673)825-575571 [place] [address] 09-29-2024 05:00-0400 Systolic blood pressure 123 mm[Hg] Dr. Yoseph Fall MD Work Phone: 1(956)087-161371 [place] [address] 09-29-2024 03:23-0400 Inhaled oxygen flow rate 3 L/min Dr. Yoseph Fall MD Work Phone: 1(052)115-069371 [place] [address] 09-29-2024 02:19-0400 Body height 162.[address] Yoseph Fall MD Work Phone: 4(060)297-112671 [place] [address] 09-29-2024 02:19-0400 Body mass index (BMI) [Ratio] 27 kg/m2 Dr. Yoseph Fall MD Work Phone: 3(892)631-292271 [place] [address] 09-29-2024 02:19-0400 Body weight 71.[address] Yoseph Fall MD Work Phone: 4(181)531-740771 [place] [address] 04-07-2024 08:39-0500 Body mass index (BMI) [Ratio] 29.23 kg/m2 Yoseph Fall MD Work Phone: [facility] 04-07-2024 08:39-0500 Body temperature 98.1 [degF] Yoseph Fall MD Work Phone: [facility] 04-07-2024 08:39-0500 Body weight 74.84 kg Yoseph Fall MD Work Phone: [facility] 04-07-2024 08:39-0500 Diastolic blood pressure 76 mm[Hg] Yoseph Fall MD Work Phone: [facility] Comment on above: home bp 04-07-2024 08:39-0500 Heart rate 86 /min Yoseph Fall MD Work Phone: [facility] 04-07-2024 08:39-0500 SaO2% (BldA) [Mass fraction] 93 % Yoseph Fall MD Work Phone: [facility] 04-07-2024 08:39-0500 Systolic blood pressure 141 mm[Hg] Yoseph Fall MD Work Phone: [facility] Comment on above: home bp 07-22-2023 17:49-0400 Heart rate 93 /min Dr. Yoseph Fall Work Phone: [facility] 07-22-2023 17:49-0400 Respiratory rate 18 /min Dr. Yoseph Fall Work Phone: [facility] 07-22-2023 16:37-0400 Body temperature 98.7 [degF] Dr. Yoseph Fall Work Phone: [facility] 07-22-2023 16:37-0400 Diastolic blood pressure 68 mm[Hg] Dr. Yoseph Fall Work Phone: [facility] 07-22-2023 16:37-0400 SaO2% (BldA) [Mass fraction] 96 % Dr. Yoseph Fall Work Phone: [facility] 07-22-2023 16:37-0400 Systolic blood pressure 146 mm[Hg] Dr. Yoseph Fall Work Phone: [facility] 07-22-2023 11:00-0400 Inhaled oxygen flow rate 2.5 L/min Dr. Yoseph Fall Work Phone: [facility] 07-22-2023 06:00-0400 Body mass index (BMI) [Ratio] 26.5 kg/m2 Dr. Yoseph Fall Work Phone: [facility] 07-22-2023 06:00-0400 Body weight 70.[address] Yoseph Fall Work Phone: [facility] 07-20-2023 05:02-0400 Body height 162.56 cm [facility] 07-20-2023 05:02-0400 Body mass index (BMI) [Ratio] 26.6 kg/m2 [facility] 07-20-2023 05:02-0400 Body weight 70.6 kg [facility] 07-20-2023 05:00-0400 Body temperature 98.9 [degF] [facility] 07-20-2023 05:00-0400 Diastolic blood pressure 72 mm[Hg] [facility] 07-20-2023 05:00-0400 Heart rate 124 /min [facility] 07-20-2023 05:00-0400 Inhaled oxygen flow rate 3.5 L/min [facility] 07-20-2023 05:00-0400 Respiratory rate 24 /min [facility] 07-20-2023 05:00-0400 SaO2% (BldA) [Mass fraction] 93 % [facility] 07-20-2023 05:00-0400 Systolic blood pressure 124 mm[Hg] [facility] 02-19-2023 14:12-0400 Body weight 73.48 kg Yoseph Fall MD Work Phone: [facility] 02-19-2023 14:12-0400 Diastolic blood pressure 78 mm[Hg] Yoseph Fall MD Work Phone: [facility] 02-19-2023 14:12-0400 Heart rate 100 /min Yoseph Fall MD Work Phone: [facility] 02-19-2023 14:12-0400 Respiratory rate 20 /min Yoseph Fall MD Work Phone: [facility] 02-19-2023 14:12-0400 SaO2% (BldA) [Mass fraction] 96 % Yoseph Fall MD Work Phone: [facility] 02-19-2023 14:12-0400 Systolic blood pressure 130 mm[Hg] Yoseph Fall MD Work Phone: [facility] 05-01-2022 14:41-0500 Body weight 78.47 kg Yoseph Fall MD Work Phone: [facility] 05-01-2022 14:41-0500 Diastolic blood pressure 81 mm[Hg] Yoseph Fall MD Work Phone: [facility] 05-01-2022 14:41-0500 Heart rate 105 /min Yoseph Fall MD Work Phone: [facility] 05-01-2022 14:41-0500 Systolic blood pressure 132 mm[Hg] Yoseph Fall MD Work Phone: [facility] 02-20-2022 13:22-0400 Body weight 77.56 kg Respiratory Wstr Work Phone: [facility] 02-20-2022 13:22-0400 Heart rate 108 /min Respiratory Wstr Work Phone: [facility] 02-20-2022 13:22-0400 Respiratory rate 16 /min Respiratory Wstr Work Phone: [facility] 02-20-2022 13:22-0400 SaO2% (BldA) [Mass fraction] 93 % Respiratory Wstr Work Phone: [facility] Encounters Encounter Date Encounter Type Care Provider Facility Start: 02-13-2025 ambulatory Jessica Barra JP Facili ty:[facility] Start: 02-08-2025 End: 02-08-2025 [facility] Work Phone: Start: 02-08-2025 End: 02-08-2025 ambulatory Yoseph Fall Facility:[facility] Start: 02-08-2025 ambulatory Jessica Barra OLS Facili ty:[facility] Start: 02-08-2025 Dr. Jessica Luo MD [facility] Start: 02-06-2025 ambulatory Jsesica TRAMMELL Facili ty:[facility] Start: 02-06-2025 Dr. Jessica Luo MD [facility] Start: 02-01-2025 ambulatory Yoseph Fall Facilit y:[facility] Start: 02-01-2025 Dr. Jessica Luo MD -[facility] Start: 01-31-2025 Dr. Debby Gu MD -[place] [facility] Work Phone: Start: 01-30-2025 Dr. Debby Gu MD -[facility] Work Phone: Start: 01-29-2025 Dr. Debby Gu MD -[facility] Work Phone: Start: 01-28-2025 Dr. Debby [facility] Work Phone: Start: 01-27-2025 Dr. Debby Gu MD [facility] Work Phone: Start: 01-26-2025 Dr. Amy Keenan MD -[facility] Start: 01-26-2025 Dr. Andriy Guzmán DO [facility] Start: 01-26-2025 Dr. Dionne Porter MD - [place] [facility] Work Phone: Start: 01-25-2025 Dr. Andriy Guzmán DO [facility] Start: 01-25-2025 ambulatory Yoseph Fall Facilit [...] Start: 01-23-2025 End: 01-23-2025 ambulatory GREGOR VALENCIAAUSTEN Facility:[facility] Start: 01-15-2025 ambulatory Yoseph Lewis y:[facility] Start: 01-12-2025 End: 01-12-[address] Yoseph Fall MD Work Phone: -Home Health Lab Start: 01-12-2025 End: 01-12-2025 Dr. Zaria Shea MD -[facility] Start: 01-12-2025 End: 01-12-2025 ambulatory Zaria Chen Facility:[facility] Start: 01-09-2025 End: 01-09-2025 Telephone encounter Yoseph Fall MD Work Phone: [facility] [place] Comment on above: Medication Request Start: 01-08-2025 End: 01-08-2025 Telephone encounter Yoseph Fall MD Work Phone: [facility] [place] Comment on above: Delay In Care Physic al Therapy Start: 01-05-2025 End: 01-05-2025 ambulatory ZARIA SHEA [facility] Start: 01-05-2025 End: 01-05-2025 Patient encounter status Zaria Shea MD Work Phone: [facility] [employer] Work Phone: Start: 01-05-2025 End: 01-05-2025 Subsequent hospital visit by physician Zaria Seha MD Work Phone: [facility] Comment on above: Aortic valve stenosi s, etiology of cardiac valve disease unspecified (Primary Dx); Preop cardiovascular exam Start: 01-04-2025 End: 01-04-2025 ambulatory Shonda Bacon APRN - SHIPPING CHECKER Work Phone: [facility] [place] Start: 01-03-2025 End: 01-03-2025 Telephone encounter [facility] Comment on above: Delay In [...] Start: 12-29-2024 Non-patient / Non-visit Stacy Jha FORMING MILL OPERATOR-C -[facility] Start: 12-29-2024 Stacy Jha FORMING MILL OPERATOR-C -[facility] Start: 12-28-2024 Non-patient / Non-visit Dr. Lynne Mak Inpatient Physicians Work Phone: Start: 12-28-2024 Dr. Lynne Peoples Inpatient Physicians Work Phone: Start: 12-28-2024 Non-patient / Non-visit Kyle Aguilar nd DO -[facility] Start: 12-28-2024 Kyle Mendenhall DO -[facility] Start: 12-28-2024 Non-patient / Non-visit Stacy Jha FORMING MILL OPERATOR-C -[facility] Start: 12-28-2024 Stacy Jha FORMING MILL OPERATOR-C -[facility] Start: 12-27-2024 Non-patient / Non-visit Dr. Lynne Mak Inpatient Physicians Work Phone: Start: 12-27-2024 Dr. Lynne Peoples Inpatient Physicians Work Phone: Start: 12-27-2024 Non-patient / Non-visit Stacy Yudelka FORMING MILL OPERATOR-C -[facility] Start: 12-27-2024 Stacy Jha FORMING MILL OPERATOR-C -[facility] Start: 12-27-2024 End: 01-01-2025 Telephone encounter Yoseph Fall MD Work Phone: [facility] [place] Comment on above: Patient Update Start: 12-26-2024 Non-patient / Non-visit Dr. Dionne Porter MD -[place] [facility] Work Phone: Start: 12-26-2024 ambulatory [...] Yoseph Fall MD Work Phone: [facility] [place] Comment on above: Patient Update Start: 12-19-2024 End: 12-19-2024 Refill Yoseph Fall MD Work Phone: [facility] [place] Comment on above: Refill Request Start: 12-15-2024 End: 12-15-2024 [facility] Start: 12-15-2024 End: 12-15-2024 Office consultation new/estab patient 80 min Rubi Corbett MD Work Phone: [facility] [place] Comment on above: Severe aortic stenos is (Primary Dx); Chronic respiratory failure with hypoxia (HCC) Start: 12-15-2024 End: 12-15-2024 ambulatory RUBI CORBETT [facility] Start: 12-15-2024 End: 12-15-2024 Encounter for preprocedural cardiovascular examination ZARIA SHEA [facility] Start: 12-15-2024 End: 12-15-2024 Office outpatient new 60 minutes Zaria Shea MD Work Phone: [facility] Comment on above: Preop cardiovascular exam (Primary Dx); Nonrheumatic aortic valve stenosis Start: 12-15-2024 End: 12-15-2024 Patient encounter status Zaria Shea MD Work Phone: [facility] Start: 12-08-2024 End: 12-08-2024 Refill Yoseph Fall MD Work Phone: [facility] [place] Comment on above: Refill Request Insurance Authorizat ion Start: 11-27-2024 End: 11-27-2024 Telephone encounter Yoseph Fall MD Work Phone: [facility] [place] Comment on above: [facility] Nursing Call Start: 11-24-2024 End: 11-24-2024 Telephone encounter Shira HOLM Work Phone: [employer] Comment on above: Care Coordination Start: 11-23-2024 End: 11-23-2024 [facility] Gregor Fernandez APRN.SHIPPING CHECKER Work Phone: [employer] Comment on above: [...] Other chronic pain; Dependence on supplemental oxygen; penitentiary (current) use of 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 Refill Request Start: 11-22-2024 End: 11-28-2024 Telephone encounter Zaria Shea MD Work Phone: [facility] Start: 11-21-2024 End: 11-21-2024 ambulatory GREGOR FERNANDEZ Facility:[facility] Start: 11-21-2024 End: 11-21-2024 Patient encounter procedure Gregor Fernandez DOCUMENT DESIGN SPECIALIST.SHIPPING CHECKER Work Phone: [facility] Comment on above: No-show for appointm ent (Primary Dx); Stage 3 severe COPD by GOLD classification (HCC); Chronic low back pain with sciatica, sciatica laterality unspecified, unspecified back pain laterality Start: 11-21-2024 End: 11-21-2024 Telemedicine consultation with patient Gregor Fernandez DOCUMENT DESIGN SPECIALIST.SHIPPING CHECKER Work Phone: [employer] Start: 11-20-2024 End: 11-24-2024 Telephone encounter [facility] Comment on [facility]: Patient Update Start: 11-10-2024 End: 11-13-2024 Telephone encounter [facility] Comment on above: Patient Request; Pat ient Update Start: 11-08-2024 End: 11-08-2024 [facility] Haylee Martínez Carter DOCUMENT DESIGN SPECIALIST.SHIPPING CHECKER Work Phone: [facility] Comment on above: NO SHOW (Primary [...] 11-01-2024 Refill Yoseph Fall MD Work Phone: [facility] Comment on above: Home Care Management ; Refill Request Start: 10-24-2024 End: 11-03-2024 Telephone encounter Yoseph Fall MD Work Phone: [employer] [facility] Comment on above: pall med- [id number]; Ini tial Consult Patient Request order question Start: 10-23-2024 End: 10-23-2024 Telephone encounter Yoseph Fall MD Work Phone: [facility] [place] Comment on above: Patient Update Start: 10-20-2024 End: 10-20-2024 Telephone encounter Yoseph Fall MD Work Phone: [facility] [place] Comment on above: Patient Update; Medi cation Request Start: 10-19-2024 End: 10-20-2024 Telephone encounter Yoseph Fall MD Work Phone: [facility] [place] Comment on above: Patient Update Start: 10-18-2024 End: 10-20-2024 Telephone encounter Yoseph Fall MD Work Phone: [facility] [place] Comment on above: Orders; Occupation T herapy Plan of care (SW Consult); Physical Therapy Plan of Care Start: 10-17-2024 End: 10-17-2024 ambulatory YOSEPH FALL Facility:[facility] Start: 10-17-2024 End: 10-17-2024 Transitional care manage srvc 14 day discharge Yoseph Fall MD Work Phone: [facility] [place] Comment on above: Stage 3 severe COPD by GOLD classification (HCC) (Primary Dx); Chronic low back pain with sciatica, sciatica laterality unspecified, unspecified back pain laterality; Essential hypertension, benign; Tobacco use disorder; Generalized anxiety disorder; Aortic valve stenosis, etiology of cardiac valve disease unspecified Start: 10-13-2024 End: 10-13-2024 Telephone encounter Yoseph Fall MD Work Phone: [facility] [place] Comment on above: PT Delay in Care Ord er Start: 10-12-2024 End: 10-17-2024 Refill Yoseph Fall MD Work Phone: [facility] [place] Comment on above: Refill Request Start: 10-11-2024 End: 10-12-2024 Refill Yoseph Fall MD Work Phone: [facility] Comment on above: Refill Request Start: 10-10-2024 End: 10-12-2024 ambulatory Naima Haines [facility] Start: 10-10-2024 End: 10-12-2024 Telephone encounter Yoseph Fall MD Work Phone: [facility] Comment on above: [facility] patient updat e Transition Of Care Start: 10-09-2024 Non-patient / Non-visit Dr. Alessandro Palma MD -[place] [facility] Work Phone: Start: 10-09-2024 Dr. Alessandro Palma MD [facility] Inpatient Physicians Work Phone: Start: 10-09-2024 End: 10-10-2024 Telephone encounter Yoseph Fall MD Work Phone: [facility] Comment on above: Patient Update Orders Medication Problem; Patient Update Start: 10-08-2024 Non-patient / Non-visit Dr. Lynne Schafer MD [facility] In[facility] Work Phone: Start: 10-08-2024 Dr. Lynne Schafer MD - [place] [facility] Work Phone: Start: 10-07-2024 Non-patient / Non-visit Dr. Lynne Schafer MD [facility] Work Phone: Start: 10-07-2024 Dr. Lynne Schafer MD [facility] Inpatient Physicians Work Phone: Start: 10-07-2024 Non-patient / Non-visit Dr. Michael Plasencia MD -[facility] Start: 10-07-2024 Dr. Michael Plasencia MD -[facility] Start: 10-06-2024 Non-patient / Non-visit Dr. Lynne Schafer MD [facility] Work Phone: Start: 10-06-2024 Dr. Lynne Booth [place] [facility] Work Phone: Start: 10-06-2024 Non-patient / Non-visit Dr. Michael Plasencia MD [facility] Start: 10-06-2024 Dr. Michael Plasencia MD [facility] Start: 10-05-2024 Non-patient / Non-visit Dr. Lynne Schafer MD [facility] Work Phone: Start: 10-05-2024 Dr. Lynne Schafer MD [facility] Inpatient Physicians Work Phone: Start: 10-04-2024 Non-patient / Non-visit Dr. Lynne Schafer MD [facility] Work Phone: Start: 10-04-2024 Dr. Lynne Schafer MD [facility] Inpatient Physicians Work Phone: Start: 10-04-2024 Non-patient / Non-visit Dr. Junito Madrid MD [facility] Start: 10-04-2024 Dr. Junito Madrid MD [facility] Start: 10-03-2024 Non-patient / Non-visit Dr. Lynne Schafer MD [facility] Phys[facility] Work Phone: Start: 10-03-2024 Dr. Lynne Schafer MD [facility] Inpatient Physicians Work Phone: Start: 10-03-2024 Non-patient / Non-visit Dr. Junito Madrid MD [facility] Start: 10-03-2024 Dr. Junito Madrid MD [facility] Start: 10-02-2024 ambulatory Dillon Lopez Facility:[facility] Start: 10-02-2024 Non-patient / Non-visit Dr. Dillon geiger MD [facility] Start: 10-02-2024 Dr. Dillon Lopez MD [facility] Start: 10-02-2024 Non-patient / Non-visit Dr. Lynne Schafer MD [facility] Work Phone: Start: 10-02-2024 Dr. Lynne Schafer MD - [place] [facility] Work Phone: Start: 10-01-2024 Non-patient / Non-visit Dr. April Bolanos MD -[place] [facility] Work Phone: Start: 10-01-2024 Dr. Jan Bolanos MD -[place] [facility] Work Phone: Start: 09-30-2024 Non-patient / Non-visit Dr. April Bolanos MD -[place] [facility] Work Phone: Start: 09-30-2024 Dr. Jan Bolanos MD -[place] [facility] Work Phone: Start: 09-29-2024 ambulatory [facility] Start: 09-29-2024 End: 10-09-2024 Evaluation and management of inpatient Dr. Alessandro Palma MD -[facility] Unit Work Phone: Start: 09-29-2024 End: 10-09-2024 Dr. Alessandro Palma MD -[facility] Work Phone: Start: 09-29-2024 Evaluation and management of inpatient Dr. Dionne Porter MD -[facility] Work Phone: Start: 09-29-[address] Yoseph Fall MD Work Phone: [facility] Work Phone: Start: 09-29-2024 ambulatory [facility] Start: 09-29-2024 Non-patient / Non-visit Dr. Dionne Porter MD -[place] [facility] Work Phone: Start: 09-29-2024 Dr. Dionne Porter MD - [place] [facility] Work Phone: Start: 09-28-2024 End: 09-28-2024 Refill Yoseph Fall MD Work Phone: [facility] Comment on above: Refill Request Start: 08-29-2024 End: 08-29-2024 Refill Yoseph Fall MD Work Phone: [address] [place] [address] Comment on above: Refill Request Start: 08-15-2024 [...] Yoseph Fall MD Work Phone: [facility] [place] Comment on above: Refill Request Start: 06-12-2024 End: 06-12-2024 Telephone encounter Yoseph Fall MD Work Phone: [facility] [place] Comment on above: Forms ([employer]) Start: 06-02-2024 End: 06-07-2024 Telephone encounter Yoseph Fall MD Work Phone: [facility] [place] Comment on above: Insurance Authorizat ion Start: 06-01-2024 End: 06-01-2024 Refill Yoseph Fall MD Work Phone: [facility] [place] Comment on above: Refill Request; Medi cation Problem ([employer]) Start: 05-16-2024 End: 06-16-2024 Refill Yoseph Fall MD Work Phone: [facility] [place] Comment on above: Refill Request Start: 04-10-2024 End: 04-10-2024 Refill Yoseph Fall MD Work Phone: [facility] [place] Comment on above: Refill Request Start: 04-07-2024 End: 04-07-2024 Distance [facility] Yoseph Fall MD Work Phone: [facility] [place] Comment on above: Chronic low back geoffrey n with sciatica, sciatica laterality unspecified, unspecified back pain laterality (Primary Dx); Essential hypertension, benign; Generalized anxiety disorder; Depression, unspecified depression type; Gastroesophageal reflux disease without esophagitis Start: 03-21-2024 End: 03-22-2024 Telephone encounter Yoseph Fall MD Work Phone: [facility] [place] Comment on above: Patient Question Start: 03-20-2024 End: 03-20-2024 Refill Yoseph Fall MD Work Phone: [facility] [place] Comment on above: Refill Request Start: 03-03-2024 End: 03-03-2024 Refill Yoseph Fall MD Work Phone: [facility] [place] Comment on above: Refill Request Start: 02-14-2024 End: 02-14-2024 Refill Yoseph Fall MD Work Phone: [facility] [place] Comment on above: Refill Request Start: 02-03-2024 End: 02-04-2024 Telephone encounter Yoseph Fall MD Work Phone: [facility] [place] Comment on above: Patient Question Start: 01-18-2024 End: 01-18-2024 Refill Yoseph Fall MD Work Phone: [facility] [place] Comment on above: Refill Request Start: 12-24-2023 End: 12-24-2023 Refill Yoseph Fall MD Work Phone: [facility] [place] Comment on above: Refill Request Start: 11-29-2023 End: 11-29-2023 Distance [facility] Yoseph Fall MD Work Phone: [facility] [place] Comment on above: Stage 3 severe COPD by GOLD classification ([facility]) (Primary Dx); Generalized osteoarthrosis, involving multiple sites; Chronic low back pain with sciatica, sciatica laterality unspecified, unspecified back pain laterality; Essential hypertension, benign; Tobacco use disorder; Dysthymic disorder Start: 11-16-2023 Refill Yoseph emmanuel MD Work Phone: [facility] [place] Comment on above: Refill Request Start: 11-08-2023 Telephone encounter Yoseph lei MD Work Phone: [facility] [place] Comment on above: Insurance Authorizat ion Start: 11-05-2023 Refill Yoseph emmanuel MD Work Phone: [facility] [place] Comment on above: Refill Request Start: 10-22-2023 Telephone encounter Yoseph lei MD Work Phone: [address] [place] [address] Comment on above: Medication Request ( Requesting antibiotic) Start: 10-18-2023 Refill Yoseph emmanuel MD Work Phone: [facility] [place] Comment on above: Refill Request Start: 10-01-2023 Telephone encounter Yoseph lei MD Work Phone: [facility] [place] Comment on above: Medication Problem Start: 09-22-2023 Refill Yoseph emmanuel MD Work Phone: [facility] Comment on above: Refill Request Start: 09-15-2023 Refill Yoseph emmanuel MD Work Phone: [facility] [place] Comment on above: Refill Request Start: 08-23-2023 End: 08-23-2023 [facility] Yoseph Fall MD Work Phone: [facility] [place] Comment on above: Stage 3 severe COPD by GOLD classification ([facility]) (Primary Dx); Essential hypertension, benign; Cigarette smoker; Generalized anxiety disorder; Chronic low back pain with sciatica, sciatica laterality unspecified, unspecified back pain laterality Start: 07-27-2023 Refill Yoseph emmanuel MD Work Phone: [facility] Comment on above: Refill Request Start: 07-26-2023 End: 07-26-2023 Patient Outreach Yoseph Fall MD Work Phone: [facility] Comment on above: Transition Of Care Obstructive chronic bronchitis with exacerbation (HCC) (Primary Dx); Stage 3 severe COPD by GOLD classification (HCC); Cigarette smoker; Chronic respiratory failure with hypoxia (HCC) Start: 07-22-2023 Non-patient / Non-visit Dr. Jos Fall Work Phone: [facility] Inpatient Physicians Work Phone: Start: 07-21-2023 Non-patient / Non-visit Dr. Jos Fall Work Phone: [facility] Work Phone: Start: 07-20-2023 End: 07-22-2023 Evaluation and management of inpatient [facility] Work Phone: Start: 07-19-2023 Telephone encounter Yoseph lei MD Work Phone: [facility] Comment on above: Medication Request; Cough Start: 06-28-2023 Refill Yoseph emmanuel MD Work Phone: [facility] Comment on above: Med Change Request Start: 06-17-2023 Telephone encounter Yoseph lei MD Work Phone: [facility] Comment on above: Forms ([employer] re: incontinence supplies) Start: 06-16-2023 ambulatory Yoseph emmanuel MD Work Phone: [facility] [place] Start: 06-15-2023 Telephone encounter Yoseph lei MD Work Phone: [facility] Comment on above: Mouth/Lip Problem Start: 06-14-2023 Telephone encounter Yoseph lei MD Work Phone: [facility] [place] Comment on above: Insurance Authorizat ion Start: 06-11-2023 Refill Yoseph emmanuel MD Work Phone: [facility] [place] Comment on above: Refill Request Start: 03-30-2023 Telephone encounter Yoseph lei MD Work Phone: [facility] [place] Start: 03-17-2023 Refill Yoseph emmanuel MD Work Phone: [facility] [place] Comment on above: Refill Request Start: 02-19-2023 End: 02-19-2023 Patient encounter procedure Yoseph Fall MD Work Phone: [facility] [place] Comment on above: Chronic low back [...] 01-15-2023 Refill Yoseph emmanuel MD Work Phone: [facility] [place] Comment on above: Refill Request Start: 12-29-2022 Refill Yoseph emmanuel MD Work Phone: [facility] [place] Comment on above: Refill Request Start: 12-10-2022 Telephone encounter Yoseph lei MD Work Phone: [facility] [place] Comment on above: Orders Start: 11-06-2022 Refill Nelson BOWMAN RN.[facility] Work Phone: [facility] [place] Comment on above: Refill Request Start: 11-05-2022 Refill Nelson BOWMAN RN.SHIPPING CHECKER Work Phone: [facility] [place] Comment on above: Refill Request Start: 08-21-2022 Telephone encounter Yoseph lei MD Work Phone: [facility] [place] Comment on above: Patient Request Start: 07-02-2022 Telephone encounter Yoseph lei MD Work Phone: [facility] [place] Comment on above: Forms (Incontinence supply form) Start: 06-29-2022 Refill Yoseph emmanuel MD Work Phone: [facility] [place] Comment on above: Refill Request Start: 06-08-2022 Refill Yoseph emmanuel MD Work Phone: [facility] [place] Comment on above: Refill Request Start: 05-15-2022 Refill Yoseph emmanuel MD Work Phone: [facility] [place] Comment on above: Refill Request Start: 05-05-2022 Refill Yoseph emmanuel MD Work Phone: [facility] [place] Comment on above: Refill Request Start: 05-01-2022 End: 05-01-2022 Distance Health Yoseph Fall MD Work Phone: [facility] [place] Comment on above: Stage 3 severe COPD by GOLD classification ([facility]) (Primary Dx); Chronic low back pain with sciatica, sciatica laterality unspecified, unspecified back pain laterality; Chronic respiratory failure with hypoxia ([facility]); Essential hypertension, benign; Generalized anxiety disorder; Tobacco use disorder Start: 04-21-2022 Refill Yoseph emmanuel MD Work Phone: [facility] [place] Comment on above: Refill Request Start: 02-27-2022 Telephone encounter Mercedez Zarate PA-C Work Phone: Pulmonary Medicine Comment on above: Orders Start: 02-20-2022 End: 02-20-2022 ambulatory Respiratory Therapist [facility] Work Phone: Pulmonary Medicine Comment on above: Spirometry Start: 02-20-2022 End: 02-20-2022 Patient encounter procedure Respiratory Therapist [facility] Work Phone: [place] [facility] Start: 01-20-2022 Refill Yoseph emmanuel MD Work Phone: [facility] [place] Comment on above: Refill Request Start: 01-13-2022 Orders Only Michelle Guzmán MD Work Phone: Pulmonary Medicine Comment on above: Chronic obstructive pulmonary disease, unspecified COPD type (HCC) (Primary Dx) Start: 01-08-2022 Telephone encounter Michelle Guzmán MD Work Phone: [facility] Comment on above: Orders Start: 12-18-2021 Refill Yoseph emmanuel MD Work Phone: [facility] [place] Comment on above: Refill Request Start: 11-17-2021 Refill Yoseph emmanuel MD Work Phone: [facility] [place] Comment on above: Refill Request Start: 10-17-2021 End: 10-17-2021 Distance Health Yoseph Fall MD Work Phone: [facility] [place] Comment on above: Chronic obstructive pulmonary disease, unspecified COPD type (HCC) (Primary Dx); Chronic low back pain with sciatica, sciatica laterality unspecified, unspecified back pain laterality; Essential hypertension, benign; Uncomplicated asthma, unspecified asthma severity, unspecified whether persistent; Generalized anxiety disorder Start: 09-30-2021 Refill Yoseph emmanuel MD Work Phone: [facility] [place] Comment on above: Refill Request Start: 09-15-2021 Refill Yoseph emmanuel MD Work Phone: [facility] [place] Comment on above: Refill Request Start: 08-27-2021 Refill Yoseph emmanuel MD Work Phone: Family [facility] Comment on above: Refill Request Start: 08-18-2021 Refill Yoseph emmanuel MD Work Phone: Family [facility] Comment on above: Refill Request Start: 08-01-2021 Orders Only Yoseph emmanuel MD Work Phone: Family [facility] Comment on above: Essential hypertensi [...] Phone: Start: 09-29-[address] Yoseph Flal MD Work Phone: Start: 09-29-2024 Oxygen saturation [...] S avelino or Plasma Lipid Screening [facility] Start: 02-20-2028 Lipid panel [facility] Start: 02-19-2026 Diabetes Screening Diabetes Screenin g [facility] Start: 10-17-2025 Annual PCP Team Belt Line Feeder kristyn Disease Visit Annual PCP Team Chronic Disease Visit [facility] Start: 07-06-2025 Annual PCP Team Belt Line Feeder kristyn Disease Visit Annual PCP Team Chronic Disease Visit [facility] Start: 07-06-2025 Screening for malign ant neoplasm of breast Mammogram Screening [facility] Comment on above: Postponed from 10/16 (Declined at this time) Start: 04-07-2025 Annual PCP Team Belt Line Feeder kristyn Disease Visit Annual PCP Team Chronic Disease Visit [facility] Start: 02-13-2025 [facility] Start: 02-08-2025 End: 02-08-2025 Evaluation of diagnostic study results [facility] Start: 01-31-2025 Patient discharge [facility] Start: 01-30-2025 Enteric precautions [facility] Start: 01-29-2025 Oxygen therapy [facility] Start: 01-29-2025 Inhalation therapy procedure [facility] Start: 01-29-2025 Physiotherapy of chest [facility] Start: 01-28-2025 Speech therapy assessment [facility] Start: 01-28-2025 Care planning and pr oblem solving actions [facility] Start: 01-27-2025 Continuous pulse oximetry [facility] Start: 01-27-2025 Dual pressure sponta neous ventilation support [facility] Start: 01-26-2025 End: 01-27-2025 [facility] Start: 01-26-2025 Administration of bl ood product [facility] Start: 01-26-2025 Gas panel - Arterial blood [facility] Start: 01-26-2025 Transfusion of red b lood cells [facility] Start: 01-25-2025 Application of intermittent pneumatic compression device [facility] Start: 01-25-2025 Assessment of risk o f venous thromboembolism [facility] Start: 01-25-2025 Consultation [facility] Start: 01-25-2025 Continuous pulse oximetry [facility] Start: 01-25-2025 Elevation of head of bed [facility] Start: 01-25-2025 Insertion of cathete r into peripheral vein [facility] Start: 01-25-2025 Measuring intake and output [facility] Start: 01-25-2025 Patient education [facility] Start: 01-25-2025 Providing care accor ding to standard [facility] Start: 01-25-2025 Referral for physica l therapy [facility] Start: 01-25-2025 Referral to occupati onal therapist [facility] Start: 01-25-2025 Vital signs measurements [facility] Start: 01-25-2025 [facility] Start: 01-25-2025 Following clinical p athway protocol [facility] Start: 01-25-2025 [facility] Start: 01-25-2025 Airway suction technique [facility] Start: 01-25-2025 Verification routine [facility] Start: 01-25-2025 Hospital admission, emergency, from emergency room, medical nature [facility] Start: 01-25-2025 Admission procedure [facility] Start: 01-25-2025 Consultation [facility] Start: 01-25-2025 Creatine kinase [Enz ymatic activity/volume] in Serum or Plasma [facility] Start: 01-25-2025 Triglycerides measurement [facility] Start: 01-25-2025 End: 01-25-2025 [facility] Start: 01-25-2025 Patient referral to dietitian [facility] Start: 01-25-2025 [facility] Start: 01-23-2025 End: 01-23-2025 ambulatory 01/23/2025 9:00 AM EDT [facility] [address] [place] [id number] Gregor Fernandez APRN.[facility] [address] [place] [phone] [id number] 2 month@2month [employer] [facility] Comment on above: [id number] 2 month@2month Start: 01-19-2025 End: 01-19-2025 Follow-up encounter 01/19/2025 2:20 PM EDT [facility] [address] [place], [place] [phone] Yoseph Fall MD [address] [place], [place] [phone] CALL PT 3 month follow up [facility] Comment on above: CALL PT 3 month foll ow up Start: 01-19-2025 End: 01-19-2025 Patient encounter procedure [facility] [place] Comment on above: 3 month follow up 3 month follow up/ p rocedure follow up of heart cath-[facility] 01/05/25 Start: 01-05-2025 End: 01-05-2026 Basic metabolic 1998 panel - Serum or Plasma Basic metabolic panel Lab Routine Aortic valve stenosis, etiology of cardiac valve disease unspecified Expected: 01/05/2025 (Approximate), Expires: 01/05/2026 [facility] Work Phone: Comment on above: Expected: 01/05/2025 (Approximate), Expires: 01/05/2026 Start: 01-05-2025 End: 01-05-2025 Admission to same day surgery center 01/05/2025 10:00 AM EDT - 01/05/2025 11:00 AM EDT Surgery [facility] [address] [place] [phone] Zaria Shea MD [address] [place] [address] Left and right heart cath / coronary angiography [facility] Comment on above: Left and right heart cath / coronary angiography Start: 01-05-2025 Subsequent hospital visit by physician 01/05/2025 10:00 AM EDT Hospital Encounter [facility] [address] [place] [phone] Zaria Shea MD [address] [place] [address] Preop cardiovascular exam [facility] Comment on above: Preop cardiovascular exam Start: 12-30-2024 Patient discharge [facility] Start: 12-28-2024 Referral to service [facility] Start: 12-27-2024 Referral to gastroenterology service [facility] Start: 12-27-2024 [facility] Start: 12-27-2024 Referral to service [facility] Start: 12-27-2024 Palliative care [facility] Start: 12-26-2024 Following clinical p athway protocol [facility] Start: 12-26-2024 Application of intermittent pneumatic compression device [facility] Start: 12-26-2024 Assessment of risk o f venous thromboembolism [facility] Start: 12-26-2024 Continuous pulse oximetry [facility] Start: 12-26-2024 Fall prevention [facility] Start: 12-26-2024 Inhalation therapy procedure [facility] Start: 12-26-2024 Insertion of cathete r into peripheral vein [facility] Start: 12-26-2024 Introduction of urin asher catheter [facility] Start: 12-26-2024 Measuring intake and output [facility] Start: 12-26-2024 Oxygen therapy [facility] Start: 12-26-2024 Physiotherapy of chest [facility] Start: 12-26-2024 Providing care accor ding to standard [facility] Start: 12-26-2024 Provision of activit y privileges [facility] Start: 12-26-2024 Referral to service [facility] Start: 12-26-2024 [facility] Start: 12-26-2024 Dual pressure sponta neous ventilation support [facility] Start: 12-26-2024 Gas panel - Arterial blood [facility] Start: 12-26-2024 Measurement of occul t blood in stool specimen using immunoassay [facility] Start: 12-26-2024 Verification routine [facility] Start: 12-26-2024 Admission procedure [facility] Start: 12-26-2024 Hospital admission, emergency, from emergency room, medical nature [facility] Start: 12-26-2024 End: 12-26-2024 [facility] Start: 12-25-2024 COVID-19 Vaccine ( season) COVID-19 Vaccine ( season) [facility] Start: 12-25-2024 Influenza vaccination [facility] Start: 12-22-2024 Subsequent hospital visit by physician 12/22/2024 Hospital Encounter [facility] [address] [place] [phone] Zaria Shea MD [address] [place] [phone] [facility] Start: 12-15-2024 End: 12-15-2024 Patient encounter procedure [facility] Cardiology [facility] Start: 11-28-2024 Annual PCP Team Belt Line Feeder kristyn Disease Visit Annual PCP Team Chronic Disease Visit [facility] Start: 11-23-2024 End: 11-23-2024 ambulatory 11/23/2024 9:00 AM EDT [facility] [address] [place] [address] [address] [place] [address] Gregor Fernandez APRN.[facility] [address] [place] [id number] confirmed 11/21/24 [facility] Comment on above: [id number] confirmed 10/25 01/18 mp Start: 11-08-2024 End: 11-08-2024 ambulatory 11/08/2024 2:30 PM EDT [facility] [address] [place] [id number] Haylee Carter, DOCUMENT DESIGN SPECIALIST.SHIPPING CHECKER [address] [place] [phone] [facility] Comment on above: [id number] Start: 10-17-2024 End: 10-17-2024 Patient encounter procedure 10/17/2024 2:20 PM EDT Office Visit [facility] [place] [address] [place] [address] Yoseph Fall MD [address] [place], [place] [phone] Discharged 10/09/24 [facility] - COPD exacerbation [facility] Comment on above: Discharged 10/09/24 W - COPD exacerbation Start: 10-09-2024 Patient discharge [facility] Start: 10-06-2024 End: 10-06-2024 Referral to service [facility] Start: 10-04-2024 Referral for physica l therapy [facility] Start: 10-04-2024 Referral to occupati onal therapist [facility] Start: 10-04-2024 Referral to service [facility] Start: 10-03-2024 Care planning and pr oblem solving actions [facility] Start: 10-03-2024 [facility] Start: 10-02-2024 Care planning and pr oblem solving actions [facility] Start: 10-02-2024 Referral to javascript front end developer [facility] Start: 10-02-2024 [facility] Start: 09-29-2024 Admission procedure [facility] Start: 09-29-2024 Following clinical p athway protocol [facility] Start: 09-29-2024 Assessment of risk o f venous thromboembolism [facility] Start: 09-29-2024 Inhalation therapy procedure [facility] Start: 09-29-2024 Insertion of cathete r into peripheral vein [facility] Start: 09-29-2024 Introduction of urin asher catheter [facility] Start: 09-29-2024 Measuring intake and output [facility] Start: 09-29-2024 Oxygen therapy [facility] Start: 09-29-2024 Providing care accor ding to standard [facility] Start: 09-29-2024 Provision of activit y privileges [facility] Start: 09-29-2024 Referral to service [facility] Start: 09-29-2024 [facility] Start: 09-29-2024 Respiratory pathogen s DNA and RNA panel - Respiratory specimen by ASPEN with probe detection [facility] Start: 09-29-2024 Verification routine [facility] Start: 09-29-2024 Admission procedure [facility] Start: 09-29-2024 Hospital admission, emergency, from emergency room, medical nature [facility] Start: 08-22-2024 Annual PCP Team Belt Line Feeder kristyn Disease Visit Annual PCP Team Chronic Disease Visit [facility] Start: 07-25-2024 Annual PCP Team Belt Line Feeder kristyn Disease Visit Annual PCP Team Chronic Disease Visit [facility] Start: 07-12-2024 DIABETES SCREEN DIABETES SCREEN [facility] Start: 07-12-2024 Diabetes Screening Diabetes Screenin g [facility] Start: 07-06-2024 End: 07-06-2024 ambulatory 07/06/2024 2:00 PM EDT [facility] [address] [place] [address] Yoseph Fall MD [address] [place] [address] 3 mo f/u - Phone visit [facility] Comment on above: 3 mo f/u - Phone vis it Start: 05-24-2024 Annual PCP Team Belt Line Feeder kristyn Disease Visit Annual PCP Team Chronic Disease Visit [facility] Start: 04-26-2024 Advance Directive Discussion Advance Directive Discussion [facility] Start: 04-26-2024 Medicare Advantage A nnual Wellness Visit Medicare Advantage Annual Wellness Visit [facility] Start: 04-07-2024 End: 04-07-2024 Telephone follow-up 04/07/2024 8:40 AM EST [facility] [address] [facility] [place] [address] Yoseph Fall MD [address] [facility] [place] [place] [address] phone call 4 month follow up [facility] [place] Comment on above: phone call 4 month f ollow up Start: 02-20-2024 Annual PCP Team Belt Line Feeder kristyn Disease Visit Annual PCP Team Chronic Disease Visit [facility] Start: 02-20-2024 Diabetes mellitus screening Diabetes Screening [facility] Start: 02-09-2024 Lipid 1996 panel - S avelino or Plasma Lipid Screening [facility] Start: 02-09-2024 LIPID SCREEN LIPID SCREEN [facility] Start: 01-25-2024 Colorectal Cancer Screening Colorectal Cancer Screening [facility] Start: 01-25-2024 Fecal Occult Blood Fecal Occult Bloo d [facility] Start: 01-25-2024 Screening for malign ant neoplasm of colon [facility] Start: 12-26-2023 Covid-19 Vaccine () Covid-19 Vaccine () [facility] Start: 12-26-2023 Influenza vaccination Influenza Vacc ine (#1) [facility] Start: 11-29-2023 End: 11-29-2023 Telephone follow-up 11/29/2023 5:40 PM EDT [facility] [address] [place] [address] Yoseph Fall MD [address] [place] [address] phone call-3 month follow up [facility] Comment on above: phone call-3 month f ollow up Start: 11-23-2023 End: 11-23-2023 Telephone follow-up 11/23/2023 3:00 PM EDT [facility] [address] [place], [place] [phone] Yoseph Fall MD [address] [facility] [place] [address] phone call-3 month follow up [facility] Comment on above: phone call-3 month f ollow up Start: 11-14-2023 ANNUAL PCP TEAM PALEOBOTANIST KRISTYN DISEASE VISIT ANNUAL PCP TEAM CHRONIC DISEASE VISIT [facility] Start: 10-25-2023 DTaP/Tdap/Td Vaccine s (2 - Td or Tdap) DTaP/Tdap/Td Vaccines (2 - Td or Tdap) [facility] Start: 10-25-2023 Urine microalbumin profile [facility] Start: 08-08-2023 ANNUAL PCP TEAM PALEOBOTANIST KRISTYN DISEASE VISIT ANNUAL PCP TEAM CHRONIC DISEASE VISIT [facility] Start: 07-22-2023 Patient discharge [facility] Start: 07-21-2023 Respiratory microbia l culture Respiratory Culture [facility] Start: 07-20-2023 Thyroid stimulating hormone measurement [facility] Start: 07-20-2023 [facility] Start: 07-20-2023 Following clinical p athway protocol [facility] Start: 07-20-2023 Assessment of risk o f venous thromboembolism [facility] Start: 07-20-2023 Contact precautions [facility] Start: 07-20-2023 Incentive spirometry [facility] Start: 07-20-2023 Insertion of cathete r into peripheral vein [facility] Start: 07-20-2023 Measuring intake and output [facility] Start: 07-20-2023 Oxygen therapy [facility] Start: 07-20-2023 Providing care accor ding to standard [facility] Start: 07-20-2023 Provision of activit y privileges [facility] Start: 07-20-2023 Referral to service [facility] Start: 07-20-2023 Respiratory secretio n precautions [facility] Start: 07-20-2023 Respiratory therapy [facility] Start: 07-20-2023 Tobacco use cessatio n education [facility] Start: 07-20-2023 [facility] Start: 07-20-2023 Verification routine [facility] Start: 07-20-2023 Admission procedure [facility] Start: 07-20-2023 Patient referral to dietitian [facility] Start: 05-01-2023 ANNUAL PCP TEAM PALEOBOTANIST KRISTYN DISEASE VISIT ANNUAL PCP TEAM CHRONIC DISEASE VISIT [facility] Start: 04-26-2023 Advance Directive Discussion Advance Directive Discussion [facility] Start: 02-19-2023 End: 05-21-2023 CBC W Auto Differential panel - Blood [facility] Work Phone: Comment on above: Expected: 02/19/2023 , Expires: 05/21/2023 Start: 02-19-2023 End: 05-21-2023 Comprehensive metabolic 2000 panel - Serum or Plasma [facility] Work Phone: Comment on above: Expected: 02/19/2023 (Approximate), Expires: 05/21/2023 Start: 02-19-2023 End: 05-21-2023 Hemoglobin A1c in Blood [facility] Work Phone: Comment on above: Expected: 02/19/2023 , Expires: 05/21/2023 Start: 02-19-2023 End: 05-21-2023 LIPID PANEL, NONFASTING [facility] Work Phone: Comment on above: Expected: 02/19/2023 , Expires: 05/21/2023 Start: 02-19-2023 End: 05-21-2023 PAIN PANEL, UR QUANT [facility] Work Phone: Comment on above: Expected: 02/19/2023 , Expires: 05/21/2023 Start: 02-19-2023 End: 05-21-2023 TOX SCREEN ROUT UR [facility] Work Phone: Comment on above: Expected: 02/19/2023 , Expires: 05/21/2023 Start: 01-23-2023 ANNUAL PCP TEAM PALEOBOTANIST KRISTYN DISEASE VISIT ANNUAL PCP TEAM CHRONIC DISEASE VISIT [facility] Start: 12-25-2022 Covid-19 Vaccine ( season) Covid-19 Vaccine ( season) [facility] Start: 12-25-2022 Influenza vaccination [facility] Start: 10-17-2022 ANNUAL PCP TEAM PALEOBOTANIST KRISTYN DISEASE VISIT ANNUAL PCP TEAM CHRONIC DISEASE VISIT [facility] Start: 08-21-2022 COVID-19 VACCINE (5 - Moderna series) COVID-19 VACCINE (5 - Moderna series) [facility] Start: 07-17-2022 ANNUAL PCP TEAM PALEOBOTANIST KRISTYN DISEASE VISIT ANNUAL PCP TEAM CHRONIC DISEASE VISIT [facility] Start: 07-17-2022 BP CONTROLLED (<130/80) BP CONTROLLE D (<130/80) [facility] Start: 04-26-2022 ADVANCE DIRECTIVE DISCUSSION ADVANCE DIRECTIVE DISCUSSION [facility] Start: 12-25-2021 Influenza vaccination [facility] Start: 12-12-2021 COVID-19 VACCINE (4 - Booster for Moderna series) COVID-19 VACCINE (4 - Booster for Moderna series) [facility] Start: 10-06-2021 COVID-19 VACCINE (3 - Booster for Moderna series) COVID-19 VACCINE (3 - Booster for Moderna series) [facility] Start: 08-01-2021 End: 10-01-2021 LIPID PANEL BASIC LIPID PANEL BASIC Lab Routine Essential hypertension, benign Elevated glucose Expected: 08/01/2021, Expires: 10/01/2021 [facility] Work Phone: Comment on above: Expected: 08/01/2021 , Expires: 10/01/2021 Start: 07-03-2021 COVID-19 VACCINE (3 - Booster for Moderna series) COVID-19 VACCINE (3 - Booster for Moderna series) [facility] Start: 2020 BONE DENSITY BONE DENSITY [facility] Start: 2020 Bone Density Screening Bone Density Screening [facility] Start: 2020 Screening for osteoporosis Bone Dens ity Screening [facility] Start: 02-14-2020 COLORECTAL CANCER SCREENING COLORECTAL CANCER SCREENING [facility] Start: 02-14-2020 FECAL OCCULT BLOOD FECAL OCCULT BLOO D [facility] Start: 10-16-2016 Mammography [facility] Start: 10-16-2016 Screening for malign ant neoplasm of breast Mammogram Screening [facility] Start: 10-24-2015 PAP TESTING PAP TESTING [facility] Start: 10-24-2015 Screening for malign ant neoplasm of cervix [facility] Start: 2015 RSV Immunization for Adults (1 - Risk 60-74 years 1-dose series) RSV Immunization for Adults (1 - Risk 60-74 years 1-dose series) [facility] [employer] Start: 2015 RSV Vaccine (1 - 1-d ose 60+ series) RSV Vaccine (1 - 1-dose 60+ series) [facility] Start: 2015 RSV Vaccine (1 - Ris k 60-74 years 1-dose series) RSV Vaccine (1 - Risk 60-74 years 1-dose series) [facility] Start: 2005 SHINGRIX VACCINE (1 of 2) CASTANON GRIX VACCINE (1 of 2) [facility] Start: 2005 Zoster Vaccines (1 of 2) Zoste r Vaccines (1 of 2) [facility] Start: 2000 COLOGUARD (FIT-DNA) COLOGUARD (FIT-D NA) [facility] Start: 2000 Colonoscopy COLONOSCOPY [facility] Start: [address] COLONOGRAPHY [facility] Start: 2000 Screening for malign ant neoplasm of colon [facility] Start: 2000 SIGMOIDOSCOPY SIGMOIDOSCOPY [facility] Start: 1995 Screening for malign ant neoplasm of breast Mammogram [facility] Start: 1985 Zoledronic acid therapy ALPHA- 1 ANTITRYPSIN DEFICIENCY SCREENING [facility] Start: 1973 BP CONTROLLED (<130/80) BP CONTROLLE D (<130/80) [facility] Start: 1973 Diabetes mellitus screening Diabetes Screening [facility] Start: 1973 Hepatitis C screening Hepatitis C Sc reening [facility] Start: 1967 Depression Monitoring Depression Mon itoring [facility] Start: 1955 Screening for malign ant neoplasm of colon [facility] Start: 1955 Screening for osteoporosis Bone Dens ity Scan [facility] Alanine aminotransfe rase [Enzymatic activity/volume] in Serum or Plasma [facility] Albumin [Mass/volume ] in Serum or Plasma [facility] Alkaline phosphatase [Enzymatic activity/volume] in Serum or Plasma [facility] Anion gap in Serum o r Plasma [facility] Anion gap measurement [facility] Aspartate aminotrans ferase [Enzymatic activity/volume] in Serum or Plasma [facility] Bacteria identified in Sputum by Respiratory culture [facility] Bilirubin measuremen t, urine [facility] Bilirubin, total measurement [facility] BUN/Creatinine ratio [facility] BUN/Creatinine ratio [facility] Calcium [Mass/volume ] in Serum or Plasma [facility] Calcium [Mass/volume ] in Serum or Plasma [facility] Carbon dioxide, tota l [Moles/volume] in Central venous blood [facility] Carbon dioxide, tota l [Moles/volume] in Serum or Plasma [facility] Cardiac catheterizat ion study Cardiac procedure CV Cardiac Cath Routine Preop cardiovascular exam 01/05/2025 12:21 PM EDT [facility] Work Phone: Chloride [Moles/volu me] in Serum or Plasma [facility] COLOGUARD COLOGUARD Lab Ro utine Screening for colon cancer Ordered: 07/06/2024 [facility] Work Phone: Comment on above: Ordered: 07/06/2024 Creatinine [Mass/vol ume] in Serum or Plasma [facility] Creatinine [Moles/vo lume] in Serum or Plasma [facility] End: 06-15-2025 DBT Breast - bilateral screening MICKIE SCREENING W RASHAUN Radiology Routine Encounter for screening mammogram for breast cancer 1 Occurrences starting 05/16/2024 until 06/15/20[facility] [employer] Work Phone: Comment on above: 1 Occurrences starti ng 05/16/2024 until 06/15/2025 ECG 12 lead - CLINIC PERFORMED ECG 12 lead - CLINIC PERFORMED CV ECG Routine Preop cardiovascular exam 12/15/2024 2:38 PM EDT [facility] Work Phone: Erythrocyte mean corpuscular volume determination [facility] Erythrocyte mean corpuscular volume determination [facility] Ferritin [Mass/volum e] in Serum or Plasma [facility] Glucose [Mass/volume ] in Serum or Plasma [facility] Glucose [Mass/volume ] in Serum or Plasma [facility] Hematocrit [Volume Fraction] of Blood [facility] Hematocrit [Volume Fraction] of Blood [facility] Hemoglobin [Mass/vol ume] in Blood [facility] Hemoglobin [Mass/vol ume] in Blood [facility] Hemoglobin [Presence ] in Urine [facility] Iron [Mass/mass] in Unspecified specimen [facility] Iron saturation [Mas s Fraction] in Serum or Plasma [facility] LEFT AND RIGHT HEART CATH / CORONARY ANGIOGRAPHY LEFT AND RIGHT HEART CATH / CORONARY ANGIOGRAPHY Preop cardiovascular exam [facility] [employer] Leukocytes [#/volume ] in Blood [facility] Leukocytes [#/volume ] in Blood [facility] Magnesium [Mass/volu me] in Serum or Plasma [facility] Magnesium measurement [facility] Mean corpuscular hemoglobin concentration determination [facility] Mean corpuscular hemoglobin concentration determination [facility] Mean corpuscular hemoglobin determination [facility] Mean corpuscular hemoglobin determination [facility] Measurement of keton es in urine using dipstick [facility] Measurement of renal function [facility] Measurement of renal function [facility] End: 07-15-2024 MG Breast Screening MICKIE SCREENING Radiology Routine Encounter for screening mammogram for breast cancer 1 Occurrences starting 06/16/2023 until 07/15/2024 [facility] Work Phone: Comment on above: 1 Occurrences starti ng 06/16/2023 until 07/15/2024 Microscopic observat ion [Identifier] in Unspecified specimen by Gram stain [facility] Microscopic urinalysis [facility] Neutrophil count [facility] Neutrophil count [facility] Neutrophil percent differential count [facility] Neutrophil percent differential count [facility] End: 02-12-2023 OXIMETRY WITH AMBULATION OXIMETRY WITH AMBULATION PFT Routine Chronic obstructive pulmonary disease, unspecified COPD type (HCC) 1 Occurrences starting 01/13/2022 until 02/12/2023 [facility] Work Phone: Comment on above: 1 Occurrences starti ng 01/13/2022 until 02/12/2023 Patient Education [facility] Work Phone: Patient referral [facility] Work Phone: pH of Urine [facility] Platelets [#/volume] in Blood [facility] Platelets [#/volume] in Blood [facility] Potassium [Moles/vol ume] in Serum or Plasma [facility] Potassium measurement [facility] Red blood cell count [facility] Red blood cell count [facility] Red cell distributio n width determination [facility] Red cell distributio n width determination [facility] Respiratory pathogen s DNA and RNA panel - Respiratory specimen by ASPEN with probe detection [facility] Serum chloride measurement [facility] Serum inorganic phos phate measurement [facility] Sodium [Moles/volume ] in Serum or Plasma [facility] Sodium measurement [facility] Specific gravity of Urine [facility] Total iron binding capacity measurement [facility] Total protein measurement [facility] TRANSCATHETER AORTIC VALVE REPLACEMENT (TAVR) TRANSCATHETER AORTIC VALVE REPLACEMENT (TAVR) Aortic valve stenosis, etiology of cardiac valve disease unspecified [facility] Troponin T.cardiac [Mass/volume] in Serum or Plasma by High sensitivity method [facility] Troponin T.cardiac [Mass/volume] in Serum or Plasma by High sensitivity method [facility] Urea nitrogen [Mass/volume] in Serum or Plasma [facility] Urea nitrogen [Mass/volume] in Serum or Plasma [facility] Urine blood test [facility] Urine dipstick for glucose [facility] Urine dipstick for leukocyte esterase [facility] Urine dipstick for nitrite [facility] Urine dipstick for protein [facility] Urine examination [facility] Urine microscopy: epithelial cells [facility] Urine Microscopy: wh ite cells [facility] Urobilinogen [Presen ce] in Urine [facility] Immunizations Immunization Date Immunization Notes Care Provider [facility] 02-19-2023 influenza (HD-IIV4) vaccine, age 65+ yr, high dose, quadrivalent, PF (FLUZONE HIGH-DOSE) Yoseph Fall MD Work Phone: [facility] 02-19-2023 influenza virus vacc ine, unspecified formulation Yoseph Fall MD Work Phone: [facility] 07-17-2021 pneumococcal polysaccharide vaccine, 23 valent Yoseph Fall MD Work Phone: [facility] 02-08-2019 influenza, injectabl e, quadrivalent, contains preservative Yoseph Fall MD Work Phone: [facility] 02-08-2019 influenza virus vacc ine, unspecified formulation Yoseph Fall MD Work Phone: [facility] 05-11-2018 influenza, injectabl e, quadrivalent, contains preservative Yoseph Fall MD Work Phone: [facility] 09-24-2017 pneumococcal conjuga te vaccine, 13 valent Yoseph Fall MD Work Phone: [facility] 02-25-2016 influenza, seasonal, injectable Yoseph Fall MD Work Phone: [facility] Work Phone: 10-24-2013 tetanus toxoid, redu ani diphtheria toxoid, and acellular pertussis vaccine, adsorbed Yoseph Fall MD Work Phone: [facility] 10-22-2013 tetanus toxoid, redu ani diphtheria toxoid, and acellular pertussis vaccine, adsorbed [facility] 03-13-2013 influenza virus vacc ine, unspecified formulation Yoseph Fall MD Work Phone: [facility] 03-09-2013 Influenza virus vaccine [facility] 03-09-2013 Dr. Yoseph camacho MD Work Phone: [facility] 03-21-2012 pneumococcal polysaccharide vaccine, 23 valent Yoseph Fall MD Work Phone: [facility] 03-21-2012 pneumococcal vaccine , unspecified formulation [facility] 03-17-2010 pneumococcal polysaccharide vaccine, 23 valent Yoseph Fall MD Work Phone: [facility] Work Phone: 03-03-2010 influenza virus vacc ine, unspecified formulation Yoseph Fall MD Work Phone: [facility] 02-10-2008 influenza virus vacc ine, unspecified formulation Yoseph Fall MD Work Phone: [facility] 03-22-2007 influenza virus vacc ine, unspecified formulation Yoseph Fall MD Work Phone: [facility] Work Phone: 04-14-2005 influenza virus vacc ine, unspecified formulation Yoseph Fall MD Work Phone: [facility] Work Phone: 04-13-2005 pneumococcal polysaccharide vaccine, 23 valent Yoseph Fall MD Work Phone: [facility] Work Phone: Payers Date Payer Category Payer Self-pay [id number] 2024 Unknown [id number] 2017 Medicaid [id number] [id number]. [id number] 2017 Medicare [id number]. [id number] 2017 Medicare [id number]. 1.13.159.2. [id number] 2017 Medicare (Managed Care) [facility] MEDIC[facility] [id number]. [id number] 2017 Medicare HMO [id number]. 1.13.680.2. [id number] 2015 Unknown [id number] Unknown [id number] 2.16840.1.988838.3.579.2. 462 Unknown [id number] 2.16840.1.459792.3.579.2. 462 Unknown [id number] 2.16.840.1.436661.3.579.2. 462 Unknown [id number] 2.16.840.1.313685.3.579.2. 462 Unknown [id number] 2.16.840.1.593374.3.579.2. 462 Unknown [id number] 2.16.840.1.670398.3.579.2. 462 Unknown [id number] 2.16.840.1.198117.3.579.2. 462 Unknown [id number] 2.16.840.1.450076.3.579.2. 462 Unknown [id number] 2.16.840.1.993983.3.579.2. 462 Unknown [id number] 2.16.840.1.042212.3.579.2. 462 Unknown [id number] 2.16.840.1.471075.3.579.2. 462 Unknown [id number] 2.16.840.1.071704.3.579.2. 462 Unknown [id number] 2.16.840.1.558108.3.579.2. 462 Unknown [id number] 2.16.840.1.473966.3.579.2. 462 Unknown [id number] 2.16.840.1.569362.3.579.2. 462 Unknown [id number] 2.16.840.1.486731.3.579.2. 462 Unknown [id number] 2.16.840.1.996681.3.579.2. 462 Unknown [id number] 2.16.840.1.101509.3.579.2. 462 Unknown [id number] 2.16.840.1.828720.3.579.2. 462 Unknown [id number] 2.16.840.1.745660.3.579.2. 462 Unknown [id number] 2.16.840.1.908866.3.579.2. 462 Unknown [id number] 2.16.840.1.483475.3.579.2. 462 Unknown [id number] 2.16.840.1.191556.3.579.2. 462 Unknown [id number] 2.16.840.1.811675.3.579.2. 462 Unknown [id number] 2.16.840.1.230487.3.579.2. 462 Unknown [id number] 2.16.840.1.630290.3.579.2. 462 Unknown [id number] 2.16840.1.024450.3.579.2. 462 Unknown [id number] 2.16840.1.555402.3.579.2. 462 Unknown [id number] 2.16840.1.489248.3.579.2. 462 Unknown [id number] 2.16840.1.275033.3.579.2. 462 Unknown [id number] 2.16840.1.997663.3.579.2. 462 Unknown [id number] 2.16840.1.839469.3.579.2. 462 Unknown [id number] 2.16840.1.183354.3.579.2. 462 Unknown [id number] 2.16840.1.499239.3.579.2. 462 Unknown [id number] 2.16.840.1.214606.3.579.2. 462 Unknown [id number] 2.16.840.1.749451.3.579.2. 462 Unknown [id number] 2.16.840.1.509070.3.579.2. 462 Unknown [id number] 2.16.840.1.686006.3.579.2. 462 Unknown [id number] 2.16840.1.833140.3.579.2. 462 Unknown [id number] 2.16.840.1.730293.3.579.2. 462 Unknown [id number] 2.16.840.1.511116.3.579.2. 462 Unknown [id number] 2.16.840.1.881544.3.579.2. 462 Unknown [id number] 2.16.840.1.875724.3.579.2. 462 Unknown [id number] 2.16.840.1.843382.3.579.2. 462 Unknown [id number] 2.16.840.1.185236.3.579.2. 462 Unknown [id number] 2.16.840.1.918683.3.579.2. 462 Unknown [id number] 2.16.840.1.885989.3.579.2. 462 Unknown [id number] 2.16.840.1.475880.3.579.2. 462 Unknown [id number] 2.16.840.1.588534.3.579.2. 462 Social History Date Type Detail Facility Start: 1969 End: 04-07-2024 Tobacco smoking status NHIS Smokes tobacco daily [facility] Work Phone: Start: 1969 History of tobacco use Cigarette Smo ker [facility] Work Phone: Start: 07-17-2021 End: 11-22-2024 Alcohol intake Current drinker of alcohol (finding) [facility] Start: 10-23-2014 History SDOH Alcohol Comment 12 drinks per week [facility] Start: 1955 Sex Assigned At Not on file [facility] Start: 07-07-2021 End: 10-17-2021 Exposure to SARS-CoV-2 (event) Not sure [facility] Start: 12-07-2019 End: 11-13-2022 Cigarettes smoked current (pack per day) - Reported 1 [facility] Start: 12-07-2019 End: 10-17-2024 Tobacco use and exposure Smokeless tobacco non-user [facility] Start: 08-07-2022 End: 11-13-2022 Tobacco use panel [facility] Start: 03-27-2012 Adult Depression Screening Assessment 0 [facility] Start: 07-20-2023 End: 07-20-2023 Tobacco smoking status NHIS Unknown if ever smoked [facility] Start: 07-20-2023 Sober [facility] Start: 07-20-2023 None [facility] Start: 09-23-2014 Spouse/ Signif icant Other [facility] Start: 07-20-2023 Cigarettes [facility] Start: 1955 Sex Assigned At Female W [facility] Start: 09-29-2024 End: 01-27-2025 Tobacco smoking status NHIS Ex-smoker (finding) [facility] Start: 1969 History of tobacco use Current smoke r [facility] Start: 12-15-2024 Alcoholic beverage intake Ex-drinker (finding) [employer] Start: 11-22-2024 Sex Female (finding) [employer] Within the last year , have you been afraid of your partner or ex-partner? No [email or web address] Health Goals Date Patient Goal Desired Activity /State Personal health goal Functional Status Date Assessment Result Facility 01-31-2025 Functional status Ambulates [facility] Work Phone: 01-25-2025 Functional status Unable to Assess [facility] Work Phone: 12-30-2024 Functional status Ambulates [facility] Work Phone: 12-29-2024 Functional status Well [facility] Work Phone: 12-27-2024 Functional status Bedside Commod e;Stand and pivot [facility] Work Phone: 10-09-2024 Functional status Ambulates [facility] Work Phone: 07-22-2023 Functional status Chair [facility] Work Phone: 06-29-2016 Are you deaf, or do you have serious difficulty hearing No 06/29/2016 3:38 PM Nancy Payne RN No [facility] 06-29-2016 Are you blind, or do you have serious difficulty seeing, even when wearing glasses No 06/29/2016 3:38 PM Nancy Payne RN No [facility] 06-29-2016 Do you have serious difficulty walking or climbing stairs Yes 06/29/2016 3:38 PM Nancy Payne RN Yes [facility] 06-29-2016 Do you have difficul ty dressing or bathing No 06/29/2016 3:38 PM Nancy Payne RN No [facility] 06-29-2016 Because of a physica l, mental, or emotional condition, do you have difficulty doing errands alone such as visiting a physician's office or shopping Yes 06/29/2016 3:38 PM Nancy Payne RN Yes [facility] Mental Status Date Assessment Result Facility 01-31-2025 Cognitive function Voice/Name [facility] Work Phone: 01-25-2025 Cognitive function Touch/Shaking [facility] Work Phone: 12-30-2024 Cognitive function Voice/Name [facility] Work Phone: 12-27-2024 Cognitive function Voice/Name [facility] Work Phone: 10-09-2024 Cognitive function Voice/Name [facility] Work Phone: 07-22-2023 Cognitive function Voice/Name [facility] Work Phone: 06-29-2016 Because of a physica l, mental, or emotional condition, do you have serious difficulty concentrating, remembering, or making decisions No 06/29/2016 3:38 PM Nancy Payne RN No [facility] Clinical Notes 06-30-2016 to 01-31-2025 Note Date & Type Note Facility 01-31-2025 Discharge summary Note Date/Time January 31, 2025 4:15pm [facility] Medical Records Department [address] [place] [address] Discharge Summary 01/31/25 1508 MR#: [id number] Acct: [id number] Name: DENIA GONZALEZ Rep #:[id number] : 1955 69 From: Debby Gu MD PCP: Dr. Yoseph Fall MD Status:AD M IN Location: [facility] [id number] Providers Date of Admission: 01/25/25 Date of Discharge: 01/31/25 Primary Care Physician: Dr. Yoseph Fall MD Consultations 01/25/25 12:26 Consult: Light Truck Driver / Pulmonary Medicine Routine Consulting Provider: Pulmonary Medicine [facility] Reason for Consult: intubation, on vent EMERGENT [...] mg PO BID 01/25/25 OXYGEN - Supplemental ([facility] INFORMATIONAL USE ONLY) hypoxia 01/27/25 alprazolam 0.25 [...] stenosis being worked up for TAVR in [place], COPD with chronic hypoxic respiratory failure on 3 L home O2, anxiety, GERD, restless leg syndrome, A-fib presented to [facility] ED 01/25/25 for worsening shortness of breath [...] 71.2 H, Lymph % (Auto) 16.1 L, Burt % (Auto) 11.7 H, Eos % (Auto) [...] administer with a meal/food OXYGEN - Supplemental ([facility] INFORMATIONAL USE ONLY) Patient Comments: patient states she wears 3L at home and the [employer] supplies the oxygen Discontinued cyclobenzaprine 10 MG tablet 10 mg PO Q12H 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 Yoseph Fall MD; Dr. Debby Gu MD~ Signed [facility] Work Phone: 1(692) 757-446710-08-2025 Consult note Author Amanda Taylor [facility] Note Date/Time January 31, 2025 8: 15pm [facility] Medical Records Department [address] [place] [address] Counseling Note - Pharmacy 01/31/25 1539 MR#: [id number] Acct: [id number] Name: DENIA GONZALEZ Rep #:[id number] : 1955 69 From: Amanda Taylor PCP: Dr. Yoseph Fall MD Status:AD M IN Y Location: [place] [id number] [place] Med Reconciliation Pharmacy Service has performed discharge [...] mg PO BID 01/25/25 OXYGEN - Supplemental ([facility] INFORMATIONAL USE ONLY) hypoxia 01/27/25 alprazolam 0.25 mg tablet 0.25 mg PO Q6H PRN PRN Anxiety 3 days #12 tabs 01/31/25 levofloxacin 750 mg tablet 750 mg PO DAILY 4 days #4 tabs 01/31/25 potassium chloride 10 mEq tablet,extended release(part/cryst) 10 meq PO DAILYCM 30 days #0 tabs 01/31/25 prednisone 20 mg tablet See Taper PO BREAKFAST #32 tabs 01/31/25 01/31/25 7239 <Electronically signed by Amanda Taylor> Date _ [facility] Signature (if applicable): Date CC: ~ Signed [facility] Work Phone: 1(108) 237-325310-08-2025 Discharge summary Author Debby Gu [facility] Note Date/Time January 31, 2025 3: 08pm [facility] Medical Records Department [address] [place] [address] Transfer to [facility] Care MR#: [id number] Acct: [id number] Name: DENIA GONZALEZ Rep #:[id number] : 1955 69 From: Debby Gu MD PCP: Dr. Yoseph Fall MD Status:AD M IN Certification of patient admission REQUIRED AT TIME OF ADMISSION. I CERTIFY THAT POST-HOSPITAL ECF SERVICES ARE REQUIRED TO BE GIVEN ON AN IN-PATIENT BASIS BECAUSE OF THE ABOVE NAMED PATIENT'S NEED FOR PENITENTIARY CARE ON A CONTINUING BASIS FOR THE CONDITION(S) FOR WHICH HE/SHE WAS RECEIVING IN-PATIENT HOSPITAL SERVICES PRIOR TO HIS/HER TRANSFER TO THE [facility]. 01/31/25 1508<Electronically signed by Debby Gu MD> Diet Diet Order/Speech Therapy: INPATIENT Hospital Diet / Speech Therapy Order(s) 01/29/25 14:08 Diet: Regular - General Food consistency:: Easy to Chew Liquid Consistency:: [place]/Mildly Thick Speech Therapy Comments: Direct sup for [...] stenosis being worked up for TAVR in [place], COPD with chronic hypoxic respiratory failure on 3 L home O2, anxiety, GERD, restless leg syndrome, A-fib presented to [facility] ED 01/25/25 for worsening shortness of breath [...] rec liberal Regular BUNNY - consistency per SPRAY OPERATOR Will continue to follow and monitor for [...] administer with a meal/food OXYGEN - Supplemental ([facility] INFORMATIONAL USE ONLY) Patient Comments: patient states she wears 3L at home and the [employer] supplies the oxygen Discontinued cyclobenzaprine 10 MG tablet 10 mg PO Q12H 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 prednisone 10 MG tablet 15 mg PO QODAY PRN (Reason: [employer]) Patient Comments: steroid for inflammation Referrals / Follow Up: Yoseph Fall MD [Primary Care Provider, [facility]] - Within 1 Week Disposition Disposition (needs filled in before D/C Order can be placed): Custodial Facility (4) Afib Qualifiers: Atrial fibrillation type: paroxysmal Qualified Code(s): I48.0 - Paroxysmal atrial fibrillation (5) Aortic valve stenosis Qualifiers: Cardiac valve disease etiology: nonrheumatic Qualified Code(s): I35.0 - Nonrheumatic aortic (valve) stenosis 01/31/25 1508 <Electronically signed by Debby Gu MD> Cosigner Signature (if applicable): CC: Dr. Yoseph Fall MD; Dr. Alessandro Palma MD ~ [facility] Work Phone: 1(337) 388-602710-08-2025 [facility]10-08-2025 Progress note Author Elma Mendez [facility] Note Date/Time January 30, 2025 10 :28pm [facility] Medical Records Department [address] [place] [address] Progress Note - Hospitalist 01/30/252225 MR#: [id number] Acct: [id number] Name: DEINA GONZALEZ Rep #:[id number] : 1955 69 From: Elma Ratliff PCP: Dr. Yoseph Fall MD Status:AD M IN Location: [place] [address] Hospitalist Note Pt asking for Imodium due to frequent loose stools. Stool studies have not been performed,these are necessary prior to prescribing loperamide. However, she may start psyllium PO now and continue twice daily to absorb water from colon. 01/30/252227 <Electronically signed by Elma WATTS> Cosigner Signature (if applicable): CC: ~ Signed [facility] Work Phone: 1(621) 681-582310-07-2025 Progress note Author Debby Gu [facility] Note Date/Time January 30, 2025 2: 37pm [facility] Medical Records Department [address] [place] [address] Progress Note - Hospitalist 01/30/25 1425 MR#: [id number] Acct: [id number] Name: DENIA GONZALEZ Rep #:[id number] : 1955 69 From: Debby Gu MD PCP: Dr. Yoseph Fall MD Status:AD M IN Location: [place] [address] Reason for Visit Chief Complaint: Progressive worsening [...] (Auto) 87.0 H, Lymph % (Auto) 7.3L, Burt % (Auto) 4.7, Eos % (Auto) 0.0, [...] stenosis being worked up for TAVR in [place], COPD with chronic hypoxic respiratory failure on 3 L home O2, anxiety, GERD, restless leg syndrome, A-fib presented to [facility] ED 02/17 for worsening shortness of breath [...] Pseudomonas - Continue antibiotics, Solu-Medrol, nebs - Light Truck Driver on consult -01/28: Status post extubation, growing [...] stenosis - Reportedly being worked up in [place] for TAVR - Had heart cath several [...] will need to follow-up on discharge in [place] for her TAVR evaluation -01/29: Tolerated additional [...] home medications, Xanax as needed started by learning analyst over the weekend, patient reports she is [...] Gu MD Charges/Coding Visit Charges Inpatient E&M: 95274 Subs Hosp L2 01/30/25 1437 <Electronically signed by Debby Gu MD> Cosigner Signature (if applicable): CC: ~ Signed [facility] Work Phone: 1(265) 869-794010-06-2025 Procedure [facility] 01-29-2025 Progress note Author Debby Gu [facility] Note Date/Time January 29, 2025 9: 33am [facility] Medical Records Department [address] [place] [address] Progress Note - Hospitalist 01/29/25 0743 MR#: [id number] Acct: [id number] Name: DENIA GONZALEZ Rep #:[id number] : 1955 69 From: Debby Gu MD [...] (Auto) 91.2 H, Lymph % (Auto) 5.0L, Burt % (Auto) 3.1, Eos % (Auto) 0.0, [...] stenosis being worked up for TAVR in [place], COPD with chronic hypoxic respiratory failure on 3 L home O2, anxiety, GERD, restless leg syndrome, A-fib presented to [facility] ED 02/17 for worsening shortness of breath [...] Pseudomonas - Continue antibiotics, Solu-Medrol, nebs - Light Truck Driver on consult -01/28: Status post extubation, growing [...] stenosis - Reportedly being worked up in [place] for TAVR - Had heart cath several [...] will need to follow-up on discharge in [place] for her TAVR evaluation -01/29: Tolerated additional Lasix yesterday, presently balance is -2800 #Depression/anxiety -01/28: Patient's home anxiety and depression medications resumed -01/29: Doing better back on home medications, Xanax as needed started by learning analyst over the weekend, patient reports she is getting set up with outpatient palliative care to discuss being prescribed this long-term for her anxiety Chronic medical problems and/or problems not being actively addressed during today's encounter: #GERD -Continue PPI # Restless leg syndrome -continue patient's home medication regimen #DVT ppx: SCDs Debby Gu MD Charges/Coding Visit Charges Inpatient E&M: 26320 Subs Hosp L2 01/29/25 0933 <Electronically signed by Debby Gu MD> Cosigner Signature (if applicable): CC: ~ Signed [facility] Work Phone: 1(564) 101-405510-06-2025 Progress note Author Andriy Guzmán [facility] Note Date/Time January 29, 2025 7: 55am [facility] Medical Records Department [address] [place] [address] Progress Note - Light Truck Driver 01/29/25 0652 MR#: [id number] Acct: [id number] Name: DENIA GONZALEZ Rep #:[id number] : 1955 69 From: Andriy Guzmán DO [...] being worked up for a TAVR in [place]. In addition, she has a known extensive [...] possible TAVR. This note was generated with Naiku dictation software. It may contain incorrectwords, spelling, [...] (Auto) 91.2 H, Lymph % (Auto) 5.0L, Burt % (Auto) 3.1, Eos % (Auto) 0.0, [...] CHRONIC CHANGES. NO ACUTE FINDINGS. Reading Location: [id number] Chest CTA 01/25/25 08:51 IMPRESSION: No demonstrated [...] cysts, no specific follow-up needed Reading Location: [facility] Chest X-Ray 01/25/25 09:00 IMPRESSION: Tubes and lines in position. There are interstitial infiltrates throughout the right mid and lower lung and left lingular segment. There are trace bilateral effusions. Reading Location[facility] Rhythm Strip Rhythm Strip: Sinus Tach [...] flat affect Charges/Coding Visit Charges Inpatient E&M: 91391 Subs Hosp L2 01/29/25 8447 <Electronically signed by Andriy Guzmán DO> Cosigner Signature (if applicable): CC: ~ Signed [facility] Work Phone: 1(346) 477-209710-05-2025 Progress note Author Debby Gu [facility] Note Date/Time January 28, 2025 9: 44am [facility] Medical Records Department [address] [place] [address] Progress Note - Hospitalist 01/28/25714 MR#: [id number] Acct: [id number] Name: DENIA GONZALEZ Rep #:[id number] : 1955 69 From: Debby Gu MD [...] (Auto) 89.8 H, Lymph % (Auto) 4.4L, Burt % (Auto) 5.3, Eos % (Auto) 0.0, [...] (Auto) 88.6 H, Lymph % (Auto) 4.8L, Burt % (Auto) 6.0, Eos % (Auto) 0.0, [...] stenosis being worked up for TAVR in [place], COPD with chronic hypoxic respiratory failure on 3 L home O2, anxiety, GERD, restless leg syndrome, A-fib presented to [facility] ED 02/17 for worsening shortness of breath [...] Pseudomonas - Continue antibiotics, Solu-Medrol, nebs - Light Truck Driver on consult -01/28: Status post extubation, growing [...] stenosis - Reportedly being worked up in [place] for TAVR - Had heart cath several [...] will need to follow-up on discharge in [place] for her TAVR evaluation #Depression/anxiety -01/28: Patient's home anxiety and depression medications resumed Chronic medical problems and/or problems not being actively addressed during today's encounter: #GERD -Continue PPI # Restless leg syndrome -continue patient's home medication regimen #DVT ppx: SCDs Debby Gu MD Charges/Coding Visit Charges Inpatient E&M: 65791 Subs Hosp L2 01/28/25 0962 <Electronically signed by Debby Gu MD> Cosigner Signature (if applicable): CC: ~ Signed [facility] Work Phone: 1([phone] 981-170710-05-2025 Progress note Author Austin Pathak [facility] Note Date/Time January 28, 2025 9: 26am [facility] Medical Records Department [address] [place] [address] Progress Note - Light Truck Driver 01/28/25 0853 MR#: [id number] Acct: [id number] Name: DENIA GONZALEZ Rep #:[id number] : 1955 69 From: Austin Pathak MD [...] 3 Ml Ampul.Neb INHALATION 3 ml Q4H.RT [facility] Administration Apixaban 5 mg 01/25/25 22:00 01/25/25 20:59 Apixaban 5 Mg Tablet PO 5 mg On Hold: 01/26/25 00:29 BID [facility] Administration Carvedilol 3.125 mg 01/28/25 08:00 Carvedilol 3.125 Mg [facility] Protocol Chlorhexidine Gluconate 1 each 01/27/25 10:00 01/27/25 20:10 Chlorhexidine Gluc 2% Cloth 1 Each Towelette TOPICAL 1 each DAILY [facility] Administration Dronedarone 400 mg 01/25/25 17:00 01/27/25 16:39 Dronedarone Hydrochloride 400 Mg Tablet PO Not [facility] Guaifenesin 600 mg 01/28/25 10:00 Guaifenesin 600 Mg Tablet PO BID [facility] Piperacillin Sod/Tazobactam 50 mls @ 12.5 mls/hr 01/25/25 11:00 01/28/25 04:44 Sod 3.375 gm/ Sodium Chloride IV 12.5 mls/hr Q8 [facility] Administration Sodium Chloride 250 mls @ 15 mls/hr 01/25/25 11:51 01/26/25 08:00 IV 0 mls/hr .[id number] PRN Infusion Saline Flush Sodium Chloride 250 mls @ 15 mls/hr 01/25/25 11:51 IV .[id number] PRN Additional IVPB Infusion Pantoprazole Sodium 40 [...] (Auto) 88.6 H, Lymph % (Auto) 4.8L, Burt % (Auto) 6.0, Eos % (Auto) 0.0, [...] Cosigner Signature (if applicable): CC: ~ Signed [facility] Work Phone: 1(533) 431-950710-04-2025 Progress note Author Debby Gu [facility] Note Date/Time January 27, 2025 10 :22am [facility] Medical Records Department [address] [place] [address] Progress Note - Hospitalist 01/27/25 0743 MR#: [id number] Acct: [id number] Name: DENIA GONZALEZ Rep #:[id number] : 1955 69 From: Debby Gu MD [...] directed back towards the epigastrium. Reading Location: [id number] Echocardiogram 01/26/25 08:59 Interpretation Summary Severe aortic stenosis. The estimated ejection fraction is 70 %. Ordering Physician: Alessandro Palma Referring Physician: Yoseph Fall Performed By: Lizzette Middleton, RDCS, RVT X-Ray 01/26/25 09:28 IMPRESSION: Repositioned and satisfactory located NG tube. Reading Location: [id number] Chest X-Ray 10/04/25 03:05 IMPRESSION: Endotracheal tube is in good position. Enteric feeding tube is in good position with its tip extending below the level of the left hemidiaphragm. Unchanged emphysema. Interval appearance of bilateral basilar atelectatic pulmonary changes. Reading Location: [place] [address] Rhythm Strip Rhythm Strip: Sinus Tach Rate: [...] stenosis being worked up for TAVR in [place], COPD with chronic hypoxic respiratory failure on 3 L home O2, anxiety, GERD, restless leg syndrome, A-fib presented to [facility] ED 02/17 for worsening shortness of breath [...] Pseudomonas - Continue antibiotics, Solu-Medrol, nebs - Light Truck Driver on consult # Hemoptysis and anemia -Blood [...] stenosis - Reportedly being worked up in [place] for TAVR - Had heart cath several [...] Gu MD Charges/Coding Visit Charges Inpatient E&M: 30465 Subs Hosp L2 01/27/25 1022 <Electronically signed by Debby Gu MD> Cosigner Signature (if applicable): CC: ~ Signed [facility] Work Phone: 1(717) 663-929210-04-2025 Progress note Author Austin Pathak [facility] Note Date/Time January 27, 2025 9: 38am [facility] Medical Records Department [address] [place] [address] Progress Note - Light Truck Driver 01/27/25 0850 MR#: [id number] Acct: [id number] Name: DENIA GONZALEZ Rep #:[id number] : 1955 69 From: Austin Pathak MD [...] Carvedilol 6.25 Mg Tablet PO Not [facility] Protocol Chlorhexidine Gluconate 15 ml 01/26/25 22:00 01/27/25 08:11 Chlorhexidine 15 Ml PO 15 ml BID [facility] Administration Chlorhexidine Gluconate 1 each 01/27/25 10:00 Chlorhexidine Gluc 2% Cloth 1 Each Towelette TOPICAL DAILY [facility] Dronedarone 400 mg 01/25/25 17:00 01/27/25 08:11 Dronedarone Hydrochloride 400 Mg Tablet PO 400 mg [facility] Administration Fentanyl Citrate 50 mcg 01/25/25 08:45 [...] 01/25/25 11:51 01/26/25 08:00 IV 0 mls/hr .[id number] PRN Infusion Saline Flush Sodium Chloride 250 mls @ 15 mls/hr 01/25/25 11:51 IV .[id number] PRN Additional IVPB Infusion Fentanyl 100 mls [...] (Auto) 89.8 H, Lymph % (Auto) 4.4L, Burt % (Auto) 5.3, Eos % (Auto) 0.0, [...] and satisfactory located NG tube. Reading Location: [id number] Chest X-Ray 01/27/25 03:05 IMPRESSION: Endotracheal tube is in good position. Enteric feeding tube is in good position with its tip extending below the level of the left hemidiaphragm. Unchanged emphysema. Interval appearance of bilateral basilar atelectatic pulmonary changes. Reading Location: [facility] Assessment and Plan . Assessment and [...] Cosigner Signature (if applicable): CC: ~ Signed [facility] Work Phone: 1([phone]) 353-506210-04-2025 Radiology Diagnostic study [facility]10-03-2025 Progress note Author Alessandro Palma [facility] Note Date/Time January 26, 2025 3: 17pm [facility] Medical Records Department [address] [place] [address] Progress Note - Hospitalist 01/26/25 0816 MR#: [id number] Acct: [id number] Name: DENIA GONZALEZ Rep #:[id number] : 1955 69 From: Alessandro Liu PCP: [...] 74.3 H, Lymph % (Auto) 12.5 L, Burt % (Auto) 11.0 H, Eos % (Auto) [...] Sl. Cloudy, Urine pH 6.0, Ur Specific [place] 1.025, Urine Protein 500 H, Urine Glucose [...] (Auto) 90.9 H, Lymph % (Auto) 4.4L, Burt % (Auto) 4.2, Eos % (Auto) 0.0, [...] (Auto) 91.5 H, Lymph % (Auto) 3.3L, Burt % (Auto) 4.6, Eos % (Auto) 0.0, [...] CHRONIC CHANGES. NO ACUTE FINDINGS. Reading Location: [facility] Chest CTA 01/25/25 08:51 IMPRESSION: No [...] cysts, no specific follow-up needed Reading Location: [facility] Chest X-Ray 01/25/25 09:00 IMPRESSION: Tubes and lines in position. There are interstitial infiltrates throughout the right mid and lower lung and left lingular segment. There are trace bilateral effusions. Reading Location: [facility] Rhythm Strip Rhythm Strip: Sinus Tach [...] AC mode 40% FiO2/400 mL/5 PEEP.. Sedated. Light Truck Driver consulted. On baseline 3 L of oxygen [...] IV bolus was given. Limited echo ordered. Ceramics Test Engineer consulted for severeaortic stenosis. 4. Atypical chest [...] Sl. Cloudy, Urine pH 6.0, Ur Specific [place] 1.025, Urine Protein 500 H, Urine Glucose [...] (Auto) 90.9 H, Lymph % (Auto) 4.4L, Burt % (Auto) 4.2, Eos % (Auto) 0.0, [...] (Auto) 91.5 H, Lymph % (Auto) 3.3L, Burt % (Auto) 4.6, Eos % (Auto) 0.0, [...] Location: [facility] Charges/Coding Visit Charges Inpatient E&M: 35301 Subs Hosp L3 01/26/25 0904 <Electronically signed [...] Cosigner Signature (if applicable): cc: ~* Signed [facility] Work Phone: 1(670) 525-688410-03-2025 Consult note Author Amy Keenan [facility] Note Date/Time January 26, 2025 3: 09pm [facility] Medical Records Department [address] [place] [address] Consultation - Cardiology 01/26/25 1458 MR#: [id number] Acct: [id number] Name: DENIA GONZALEZ Rep #:[id number] : 1955 69 From: Amy good MD [...] and is being evaluated for TAVR at [facility]. She has history of chronic respiratory failure [...] currently on antibiotics for possible pneumonia aswell. [facility] Medical History Palliative care encounter Acute [...] bilateral edema Charges/Coding Visit Charges Inpatient E&M: 85981 Init Hosp L2 Objective Data Vital Signs: [...] Sl. Cloudy, Urine pH 6.0, Ur Specific [place] 1.025, Urine Protein 500 H, Urine Glucose [...] (Auto) 90.9 H, Lymph % (Auto) 4.4L, Burt % (Auto) 4.2, Eos % (Auto) 0.0, [...] (Auto) 91.5 H, Lymph % (Auto) 3.3L, Burt % (Auto) 4.6, Eos % (Auto) 0.0, [...] Sl. Cloudy, Urine pH 6.0, Ur Specific [place] 1.025, Urine Protein 500 H, Urine Glucose [...] 90.9 H, Lymph % (Auto) 4.4 L, Burt % (Auto) 4.2, Eos % (Auto) 0.0, Baso %(Auto) 0.1, Absolute Neuts (auto) 6.2, Nucleated RBC % 0 01/26/25 03:25: WBC 8.2, RBC 3.08 L, Hgb 7.4 L, Hct 23.7 L, MCV 76.9 L, MCH 24.0L, MCHC 31.2 L, Plt Count 240, MPV 10.9, Immature Gran % (Auto) 0.500, Neut % (Auto) 91.5 H, Lymph % (Auto) 3.3 L, Burt % (Auto) 4.6, Eos % (Auto) 0.0, [...] directed back towards the epigastrium. Reading Location: [id number] KUB X-Ray 01/26/25 09:28 IMPRESSION: Repositioned and satisfactory located NG tube. Reading Location: [facility] Risk Score for UA/STEMI Assesmment (YES = 1) Risk Stratification Applicable: No 01/26/25 1509 <Electronically signed by Amy Keenan MD> Cosigner Signature (if applicable): CC: Dr. Yoseph Fall MD~ Signed [facility] Work Phone: 1(626) 595-155610-03-2025 Progress note Author Andriy Guzmán [facility] Note Date/Time January 26, 2025 9: 59am [facility] Medical Records Department [address] [place] [address] Progress Note - Light Truck Driver 01/26/25 0724 MR#: [id number] Acct: [id number] Name: DENIA GONZALEZ Rep #:[id number] : 1955 69 From: Andriy Guzmán DO [...] being worked up for a TAVR in [place]. In addition, she has a known extensive [...] 74.3 H, Lymph % (Auto) 12.5 L, Burt % (Auto) 11.0 H, Eos % (Auto) [...] Sl. Cloudy, Urine pH 6.0, Ur Specific [place] 1.025, Urine Protein 500 H, Urine Glucose [...] (Auto) 90.9 H, Lymph % (Auto) 4.4L, Burt % (Auto) 4.2, Eos % (Auto) 0.0, [...] (Auto) 91.5 H, Lymph % (Auto) 3.3L, Burt % (Auto) 4.6, Eos % (Auto) 0.0, [...] CHRONIC CHANGES. NO ACUTE FINDINGS. Reading Location: [facility] Chest CTA 01/25/25 08:51 IMPRESSION: No [...] cysts, no specific follow-up needed Reading Location: [id number] Chest X-Ray 01/25/25 09:00 IMPRESSION: Tubes and lines in position. There are interstitial infiltrates throughout the right mid and lower lung and left lingular segment. There are trace bilateral effusions. Reading Location: [facility] Rhythm Strip Rhythm Strip: Sinus Tach [...] sedated on vent Charges/Coding Procedures Hospitalists Procedures: 58374 Critical Care 1st Hr 01/26/25 0959 <Electronically signed by Andriy Guzmán DO> Cosigner Signature (if applicable): CC: ~ Signed [facility] Work Phone: 1(294) 649-382210-03-2025 Radiology Diagnostic study [facility]10-03-2025 Radiology Diagnostic study [facility]10-03-2025 Progress note Author Dionne Porter [facility] Note Date/Time January 26, 2025 1: 48am [facility] Medical Records Department [address] [place] [address] Progress Note - Hospitalist 01/26/2529 MR#: [id number] Acct: [id number] Name: DENIA GONZALEZ Rep #:[id number] : 1955 69 From: Dionne Porter MD [...] on 01/26/25 at 0106 Addendum Spoke with BOOKYstaff electrical engineer to delay CT until diuresis. Now they [...] Cosigner Signature (if applicable): cc: ~* Signed [facility] Work Phone: 1(405) 473-256510-02-2025 History and physical note Author Alessandro Palma [facility] Note Date/Time January 25, 2025 4: 43pm [facility] Medical Records Department [address] [place] [address] H&P Exam - Hospitalist 01/25/25 1004 MR#: [id number] Acct: [id number] Name: DENIA GONZALEZ Rep #:[id number] : 1955 69 From: Alessandro Liu PCP: [...] is being worked up for TAVR in [place]. She was working hard on her breathing and oxygen was turned for later. Patient was more irritable during transport and then he stopped verbalizing few blocks away from the hospital. Social history: She has 30 pack years of smoking. Reported quit recently by . Significant anxiety and panic attack. [facility] Medical History Palliative care encounter Acute [...] 74.3 H, Lymph % (Auto) 12.5 L, Burt % (Auto) 11.0 H, Eos % (Auto) [...] AC mode 40% FiO2/400 mL/5 PEEP.. Sedated. Light Truck Driver consulted. On baseline 3 L of oxygen [...] 74.3 H, Lymph % (Auto) 12.5 L, Burt % (Auto) 11.0 H, Eos % (Auto) [...] Location: [facility] Charges/Coding Visit Charges Inpatient E&M: 39477 Init Hosp L3 Procedures Hospitalists Procedures: 36024 Advncd Care Plan 30 Min 01/25/25 1643 <Electronically signed by Alessandro Palma MD> Cosigner Signature (if applicable): CC: Dr. Yoseph Fall MD; Dr. Alessandro Palma MD~ Signed [facility] Work Phone: 1(792) 611-852910-02-2025 Consult note Author Andriy Guzmán [facility] Note Date/Time January 25, 2025 12 :55pm [facility] Medical Records Department [address] [place] [address] Consultation - Light Truck Driver 01/25/25 1147 MR#: [id number] Acct: [id number] Name: DENIA GONZALEZ Rep #:[id number] : 1955 69 From: Andriy Guzmán DO [...] being worked up for a TAVR in [place]. In addition, she has a known extensive [...] currently in remission. She has an approximate [id number]-[id number] smoking history, but reportedly quit recently. Although she has a reported history of COPD, she has never been evaluated by a chief mate, nor has she ever had formal pulmonary function studies completed. He did report that the patient has significant anxiety and experiences frequent panic attacks. In addition, the patient is currently beingworked up for a TAVR in [place] due to a history of severe aortic [...] medical intensive care unit for further management. [facility] Medical History Palliative care encounter Acute [...] 74.3 H, Lymph % (Auto) 12.5 L, Burt % (Auto) 11.0 H, Eos % (Auto) [...] CHRONIC CHANGES. NO ACUTE FINDINGS. Reading Location: [id number] Chest CTA 01/25/25 08:51 IMPRESSION: No demonstrated [...] Reading Location: [facility] Charges/Coding Procedures Hospitalists Procedures: 42145 Critical Care 1st Hr 01/25/25 1255 <Electronically signed by Andriy Guzmán DO> Cosigner Signature (if applicable): CC: Dr. Yoseph Fall MD~ Signed [facility] Work Phone: 1(156) 546-446510-02-2025 Discharge summary Author [facility] Note Date/Time January 25, 2025 10 :35am [facility] Medical Records Department [address] [place] [address] Emergency Department Summary 01/25/25 MR#: [id number] Acct: [id number] Name: DENIA GONZALEZ Rep #:[id number] : 1955 69 From: Mercy Lamas PCP: [...] a heart cath 3 weeks ago at [facility]. He is not sure if she is still on her Eliquis or not. No other information obtained at this time. He understand that she will need admission to the ICU. [facility] Medical History Palliative care encounter [...] heater probe. She is following up with [facility] for her severe concentric left ventricular hypertrophy [...] Dr. Palma. Also discussed the case with learning analyst. While in the ICU patient's does develop [...] 74.3 H Lymph % (Auto) 12.5 L Burt % (Auto) 11.0 H Eos % (Auto) [...] CHRONIC CHANGES. NO ACUTE FINDINGS. Reading Location: [facility] Chest CTA 01/25/25 08:51 IMPRESSION: No [...] cysts, no specific follow-up needed Reading Location: [facility] Chest X-Ray 01/25/25 09:00 IMPRESSION: Tubes and lines in position. There are interstitial infiltrates throughout the right mid and lower lung and left lingular segment. There are trace bilateral effusions. Reading Location[facility] Rhythm Strip Rhythm Strip: Sinus Tach [...] Management Discussion w/another healthcare provider: Hospitalist and Stitcher Operator Procedures Intubations Intubation Method: orotracheal (7.5 ET [...] procedures): 30-74 minutes (47), Discussing w/Patient &/or Family/Rail Car Repair Carman, Discussing w/Consultants, Arranging Admission or Transfer and Performing Direct Patient Care at Bedside Discharge Plan Dx/Rx/DC Orders Clinical Impression: Acute respiratory failure, Tachycardia, Aortic valve stenosis, Anticoagulated on apixaban, Pneumonia, Chronic anemia Disposition Disposition: Acute Care Hospital [facility] What to do if you have Problems For any increased pain, shortness of breath, bleeding, nausea or vomiting, chestpain, or any unexpected problems, contact your Primary Care Provider. Call [facility] ([phone]) or report to the closest Emergency Room. Call 911 if necessary. 01/25/25 1035 <Electronically signed by Mercy Flores DO> Cosigner Signature (if applicable): CC: Dr. Yoseph Fall MD ~ Signed [facility] Work Phone: 1(218) 918-666810-02-2025 NoteAcceptable Specimen? Acceptable Specimen(Evaluation not needed) Gram Stain 4+ Gram positive rods 4+ White Blood Cells 4+ Gram negative rods Rare Epithelial cellsWOhioHealth Hardin Memorial HospitalComment on above:Performed By: #### M100.2400, M100.1999 ####[facility] [address] [place], [address](189) 427-438410-02-2025 Radiology Diagnostic study note [facility]10-02-2025 Radiology Diagnostic study [facility]10-02-2025 Radiology Diagnostic study [facility]09-30-2025 NoteHNO ID: [id number] Author: GREGOR FERNANDEZ APRN.SHIPPING CHECKER Service: ? Author Type: Nurse Practitioner Type: Progress Notes Filed: 01/23/2025 09:53 Note Text: PALLIATIVE MEDICINE AT HOME PROGRESS NOTE SERVICE DATE: January 23, 2025 IDENTIFICATION AND INTRODUCTION: Denia Gonzalez is a 69 year old female Pt did not arrive to visit. Tip Mender attempted to reach out, needs rescheduled [facility]09-16-2025 Telephone encounter Note* Telephone Encounter - Naima Haines MA - 01/09/2025 5:07 PM EDT Breanna notified. Naima Haines MA [facility]09-16-2025 Miscellaneous Notes* Telephone Encounter - Naima Haines MA - 01/09/2025 5:07 PM EDT Breanna notified. Naima Haines MA * Telephone Encounter - Yoseph Fall MD - 01/09/2025 5:02 PM EDT Lorazepam is contraindicated due to her chronic opioid use; ordered hydroxyzine instead for prn use Yoseph Fall MD * Telephone Encounter - Sukhi Marrero RN - 01/09/2025 4:37 PM EDT Breanna with [facility] Field Reimbursement Manager calls to give update on anxiety. Breanna [...] with reply to response to #1 above. [phone] Padmini Abbott RN documented in this encounterOhio[facility]09-16-2025 Telephone encounter Note * Telephone Encounter - Yoseph Fall MD - 01/09/2025 5:02 PM EDT Lorazepam is contraindicated due to her chronic opioid use; ordered hydroxyzine instead for prn use Yoseph Fall MD [facility]09-16-2025 Telephone encounter Note* Telephone Encounter - Sukhi Marrero RN - 01/09/2025 4:37 PM EDT Breanna with [facility] Field Reimbursement Manager calls to give update on anxiety. Breanna [...] not on medication list. Sukhi Marrero RN [facility]09-16-2025 Telephone encounter Note* Telephone Encounter - [...] with reply to response to #1 above. [phone] Padmini Abbott RN [facility]09-15-2025 Telephone encounter Note* Telephone Encounter - Martha Baca MA - 01/08/2025 4:09 PM EDT Called and received Edda's identifiable and secure VM. LM with information below from Provider, if questions to contact the office. Martha Baca MA [facility]09-15-2025 Miscellaneous Notes* Telephone Encounter - Martha [...] - 01/08/2025 10:05 AM EDT Edda from [facility] calls and states that patient was supposed to have PT evaluation last week but was unable to do. Edda asking for a delay in care order for PT. Please review and advise, Judy Bliss RN documented in this encounterOhio[facility]09-15-2025 Telephone encounter Note * Telephone Encounter - Nelson Robert APRN.CNP - 01/08/2025 11:01 AM EDT Okay for delay in care. Nelson Robert APRN.CNP [facility]09-15-2025 Telephone encounter Note* Telephone Encounter - Judy Bliss RN - 01/08/2025 10:05 AM EDT Edda from [facility] calls and states that patient was supposed to have PT evaluation last week but was unable to do. Edda asking for a delay in care order for PT. Please review and advise, Judy Bliss RN [facility]09-12-2025 Hospital Discharge instructions* Discharge Instructions* Lindsay Cheng APRN - [place] - 01/05/2025 2:29 PM EDT Valve Team will call with follow up appt. Please have non fasting kidney blood work test early nextweek Call your doctor with any medication questions or if you notice any side effects from your medications. If you are unable to fill your medications, please call your Ceramics Test Engineer immediately. The office number is located with [...] be gone by tomorrow. documented in this [facility]09-12-2025 Attending History and physical note* Zaria Shea [...] Shea MD (Physician) Cardiology Expand All Collapse [facility] CARDIOLOGY - [place] [address] [facility] [address] Dept: [phone] Dept Visit type: New : 1955 Reason for Visit: New patient, Heart Valve Clinic Assessment and Plan 1. Preop cardiovascular exam - CBC auto differential - Comprehensive metabolic panel - Case Request Underwear Hemmer: Left and right heart cath / coronary [...] by mouth daily., Disp: , Rfl: HYDROcodone-acetaminophen (Bliss) 5-325 MG tablet, Take 1 tablet by [...] NYHA Classification: Class III Frailty Score :6 [facility] Protocol: No, severe Cosigned by Zaria Shea MD at 01/05/2025 9:02 PM EDT [facility] [employer] Work Phone: 1(148) 769-106109-12-2025 NoteH&P reviewed. The patient was examined and there are no changes to the H&P.[facility]09-12-2025 History and physical note* Zaria Shea [...] MD (Physician) Cardiology Expand All Collapse All [facility] [place] [address] [facility] [address] Dept: [phone] Dept Visit type: New : 1955 Reason for Visit: New patient, Heart Valve Clinic Assessment and Plan 1. Preop cardiovascular exam - CBC auto differential - Comprehensive metabolic panel - Case Request Underwear Hemmer: Left and right heart cath / coronary [...] by mouth daily., Disp: , Rfl: HYDROcodone-acetaminophen (Bliss) 5-325 MG tablet, Take 1 tablet by [...] 01/05/2025 9:02 PM EDT documented in this [facility]09-12-2025 Nurse procedure note* Pre- Sedation Documentation - [...] Shea MD at 01/05/2025 9:33 PM EDT [facility] [employer] - [place] Phone: 1(730) 771-724709-12-2025 Miscellaneous Notes* Pre-Sedation Documentation - Octavia Luther [...] 01/05/2025 9:33 PM EDT documented in this [facility]09-11-2025 NoteSpoke to patient and significant other. Verified all medications for AM before procedure. Answered all questions, reinforced cath teach. Verbalized understanding.[facility]09-11-2025 History and physical note* Shonda Bacon APRN - [place] - 01/04/2025 9:30 AM EDT Images from the original note were not included. Zaria Shea MD Cardiology Preop cardiovascular exam +1 more Dx Cardiac Valve Problem New Patient Reason for Visit Progress Notes Zaria Shea MD (Physician) Cardiology Expand All Collapse All [facility] [place] [address] [facility] [address] Dept: [phone] Dept Visit type: New : 1955 Reason for Visit: New patient, Heart Valve Clinic Assessment and Plan 1. Preop cardiovascular exam - CBC auto differential - Comprehensive metabolic panel - Case Request Underwear Hemmer: Left and right heart cath / coronary [...] Recheck after cath and CTA. Subjective HPI Deina Gonzalez is a very pleasant 69 y.o. [...] by mouth daily., Disp: , Rfl: HYDROcodone-acetaminophen (Bliss) 5-325 MG tablet, Take 1 tablet by [...] NYHA Classification: Class III Frailty Score :6 [facility] Protocol: No, severe Cosigned by Zaria Shea MD at 01/05/2025 9:02 PM EDT [facility] [employer] Work Phone: 1([phone]) 220-553709-11-2025 History and physical note* ABRAHAM Reza CNP - 01/04/2025 9:30 AM EDT Images from the original note were not included. Zaria Shea MD Cardiology Preop cardiovascular exam +1 more Dx Cardiac Valve Problem New Patient Reason for Visit Progress Notes Zaria Shea MD (Physician) Cardiology Expand All Collapse All [facility] [place] [address] [facility] [address] Dept: [phone] Dept Visit type: New : 1955 Reason for Visit: New patient, Heart Valve Clinic Assessment and Plan 1. Preop cardiovascular exam - CBC auto differential - Comprehensive metabolic panel - Case Request Underwear Hemmer: Left and right heart cath / coronary [...] by mouth daily., Disp: , Rfl: HYDROcodone-acetaminophen (Bliss) 5-325 MG tablet, Take 1 tablet by [...] 01/05/2025 9:02 PM EDT documented in this [facility]09-11-2025 NotePeJunior MD Cardiology Preop cardiovascular exam +1 more Dx Cardiac Valve Problem New Patient Reason for Visit Progress Notes Zaria Shea MD (Physician) Cardiology Expand All Collapse All [facility] [place] [address] [facility] [address] Dept: [phone] Dept Visit type: New : 1955 Reason for Visit: New patient, Heart Valve Clinic Assessment and Plan 1. Preop cardiovascular exam - CBC auto differential - Comprehensive metabolic panel - Case Request Underwear Hemmer: Left and right heart cath / coronary [...] by mouth daily., Disp: , Rfl: HYDROcodone-acetaminophen (Bliss) 5-325 MG tablet, Take 1 tablet by [...] (HCC) Anxiety Aortic st (more content not included)...[facility] [id number] Note Zaria Shea MD Cardiology Preop cardiovascular exam +1 more Dx Cardiac Valve Problem New Patient Reason for Visit Progress Notes Zaria Shea MD (Physician) Cardiology Expand All Collapse All [facility] [place] [address] [facility] [address] Dept: [phone] Dept Visit type: New : 1955 Reason for Visit: New patient, Heart Valve Clinic Assessment and Plan 1. Preop cardiovascular exam - CBC auto differential - Comprehensive metabolic panel - Case Request Underwear Hemmer: Left and right heart cath / coronary [...] by mouth daily., Disp: , Rfl: HYDROcodone-acetaminophen (Bliss) 5-325 MG tablet, Take 1 tablet by [...] (HCC) Anxiety Aortic st (more content not included)...[facility]09-11-2025 Note DOCUMENT DESIGN SPECIALIST notified to complete prep for proc orders. [...] [] EKG on arrival [] BMP [] [facility]09-10-2025 Telephone encounter Note* Telephone Encounter - Judy Bliss RN - 01/03/2025 11:23 AM EDT Breanna notified of below. Voices understanding. Judy Bliss RN [facility]09-10-2025 Miscellaneous Notes* Telephone Encounter - Judy Bliss RN - 01/03/2025 11:23 AM EDT Breanna notified of below. Voices understanding. Judy Bliss RN * Telephone Encounter - Nelson Robert APRN.CNP - 01/03/2025 11:22 AM EDT Noted. Okay with delay in care. Nelson Robert APRN.CNP * Telephone Encounter - Judy Bliss RN - 01/03/2025 8:34 AM EDT Breanna SW from [facility] HH calls and is asking for delay in care till next week. Breanna cannot see patient till next week. Judy Bliss, RN documented [facility] Telephone encounter Note * Telephone Encounter - Nelson Robert APRN.CNP - 01/03/2025 11:22 AM EDT Noted. Okay with delay in care. Nelson Robert APRN.CNP [facility]09-10-2025 Telephone encounter Note* Telephone Encounter - Naima Haines MA - 01/03/2025 8:43 AM EDT Rafa notified and voiced understanding. Advised that pt appt has been changed to a VV. Naima Haines MA [facility]09-10-2025 Miscellaneous Notes* Telephone Encounter - Naima [...] - 01/02/2025 3:24 PM EDT Rafa from [facility] Home Health calling patient was discharged from [facility] on 12/30. Patient refused OT. Skliied nursing plans 2 visits weekly for 2 weeks, then 1 visit weekly for 2 weeks. Would like to add needs Social Work verbal order, for her mood, anxiety, depression. Palliative care had seen her while she was in [facility], hope they continue to see her. Patient [...] to Virtual. Please advise [facility] Telephone encounter Note * Telephone Encounter - Judy Bliss RN - 01/03/2025 8:34 AM EDT Breanna SW from [facility] HH calls and is asking for delay in care till next week. Breanna cannot see patient till next week. Judy Bliss RN [facility]09-10-2025 NoteDischarge summary reviewed. Ok to proceed with cath this Wednesday if ok with patient.[facility]09-10-2025 NoteReceived notice patient admitted to [facility]30 for iron deficiency anemia and acute COPD exacerbation. Will have DOCUMENT DESIGN SPECIALIST review discharge summary to determine if cath on Wednesday [facility] Telephone encounter Note* Telephone Encounter - Nelson Robert APRN.CNP - 01/02/2025 3:36 PM EDT Okay to proceed with HHC orders. Okay to proceed with social work orders. Okay to switch to virtualvisit. Nelson Robert CNP [facility]09-09-2025 Telephone encounter Note* Telephone Encounter - Brynn Watson LPN - 01/02/2025 3:24 PM EDT Rafa from [facility] Home Health calling patient was discharged from [facility] on 12/30. Patient refused OT. Skliied nursing plans 2 visits weekly for 2 weeks, then 1 visit weekly for 2 weeks. Would like to add needs Social Work verbal order, for her mood, anxiety, depression. Palliative care had seen her while she was in [facility], hope they continue to see her. Patient [...] to change it to Virtual. Please advise [facility]09-08-2025 Telephone encounter Note* Telephone Encounter - Nelson Robert APRN.CNP - 01/01/2025 8:58 AM EDT Noted. Patient has follow up with Dr. Fall scheduled on 01/19. Nelson Robert APRN.CNP [facility]09-08-2025 Miscellaneous Notes* Telephone Encounter - Nelson Robert APRN.CNP - 01/01/2025 8:58 AM EDT Noted. Patient has follow up with Dr. Fall scheduled on 01/19. Nelson Robert APRN.CNP * Telephone Encounter - Sukhi Marrero RN - 12/27/2024 2:47 PM EDT Palma Anguiano with [facility] calls to let provider know that patient was admitted to [facility] last evening for COPD exacerbation. Admission notes available within [facility]. Sukhi Marrero RN documented in this encounterOhio[facility]-2025 Discharge summary [facility] Medical Records Department [address] [place] [address] Instructions for Home/Discharge Instructions 12/30/24 1141 MR#: [id number] Acct: [id number] Name: DENIA GONZALEZ Rep #:[id number] : 1955 69 From: Lynne Schafer MD [...] Health Service 12/30/24 1142Lynne Schafer MD CC: FORMING MILL OPERATORLaura Mendez; FORMING MILL OPERATOR-C Stacy Jha; MADDIC Mercedez Joseph; Dr. Dionne Porter MD; Dr. Yoseph Fall MD; Dr. Alessandro Palma MD;SADIQ Paez; Kyle Mendenhall DO ~ Signed [facility]09-06-2025 NoteWooTriHealth [facility]09-05-2025 Progress note Author Lynne [facility] Note Date/Time December 29, 2024 4:00pm [facility] Medical Records Department [address] [place] [address] Progress Note 12/29/24 1346 MR#: [id number] Acct: [id number] Name: DENIA GONZALEZ Rep #:[id number] : 1955 69 From: Lynne Schafer MD PCP: Dr. Yoseph Fall MD Status:AD M IN Location: [place] [address] Subjective Subjective Patient seen and examined with [...] 89.9 H, Lymph % (Auto) 6.5 L, Burt % (Auto) 2.8, Eos % (Auto) 0.0, [...] I diastolic dysfunction. * To follow-up at [facility] as scheduled for evaluation for TAVR. * [...] 24-48 hours Charges/Coding Visit Charges Inpatient E&M: 66999 Subs Hosp L2 12/29/24 1600 <Electronically signed by Lynne Schafer MD> Lynne Schafer MD Cosigner Signature (if applicable): CC: ~ Signed [facility] Work Phone: 1(638) 793-984309-05-2025 Progress note [facility] Medical Records Department [address] [place] [address] Progress Note 12/29/24 1346 MR#: [id number] Acct: [id number] Name: DENIA GONZALEZ Rep #:[id number] : 1955 69 From: Lynne Schafer MD PCP: Dr. Yoseph Fall MD Status:AD M IN Location: [place] [address] Subjective Subjective Patient seen and examined with [...] 89.9 H, Lymph % (Auto) 6.5 L, Burt % (Auto) 2.8, Eos % (Auto) 0.0, [...] I diastolic dysfunction. * To follow-up at [facility] as scheduled for evaluation for TAVR. * [...] 24-48 hours Charges/Coding Visit Charges Inpatient E&M: 22706 Subs Hosp L2 12/29/24 1600 Lynne Schafer MD Cosigner Signature (if applicable): CC: ~ Signed [facility]09-05-2025 Progress note Author Stacy abdi [facility] Note Date/Time December 29, 2024 11:24am [facility] Medical Records Department [address] [place] [address] Progress Note - Palliative 12/29/24 1109 MR#: [id number] Acct: [id number] Name: DENIA GONZALEZ Rep #:[id number] : 1955 69 From: Stacy Nazario FORMING MILL OPERATOR-C PCP: Dr. Yoseph Fall MD Status:AD M IN [facility] Subjective Subjective 12/29/24: Prior to [...] was then gently awakened by myself and BIOLOGICAL SCIENCE TECHNICIAN to do her vitals. Patient states that [...] allergic rhinitis, HTN who presents to the [facility] ED on 12/26/2024 with history of 3 to 4days of progressively worsening fatigue, malaise, dyspnea with chest tightness and wheezing coupled unfortunately with significant panic attacks whenever she has been attempting to leave the house with a productive cough specifically of yellow sputum prompting ED evaluation be cautious. She does report that she is supposed to have a heart cath at [facility] in the next several weeks because of [...] BUN/creatinine 16/0.64, GFR 96, glucose 112, initial [id number] with repeat delta 25, chest x-ray with [...] 89.9 H, Lymph % (Auto) 6.5 L, Burt % (Auto) 2.8, Eos % (Auto) 0.0, [...] Affect: anxious Charges/Coding Palliative Care Palliative Care: 06301 Follow up 35-49 min Consulation Summary Current [...] a Healthcare Power No 12/26/24 21:29 of Trading Manager? Do You Want Additional Declined 12/26/24 21:29 [...] a result of this Palliative Care Encounter: [[id number], [id number] ] minutes were spent in total for [...] Cosigner Signature (if applicable): CC: ~ Signed [facility] Work Phone: 1(739) 157-837109-05-2025 Progress note [facility] Medical Records Department [address] [place] [address] Progress Note - Palliative 12/29/24 1109 MR#: [id number] Acct: [id number] Name: DENIA GONZALEZ Rep #:[id number] : 1955 69 From: Stacy WATTS PCP: Dr. Yoseph Fall MD Status:AD M IN Location: [place] [address] 1 Subjective Subjective 12/29/24: Prior to meeting [...] stated understanding. Ting continues to be on [facility] oxygen administrationof 3 L and she is [...] was then gently awakened by myself and BIOLOGICAL SCIENCE TECHNICIAN to do her vitals. Patient states that [...] with allergic rhinitis,HTN who presents to the [facility] ED on 12/26/2024 with history of 3 to 4days of progressively worsening fatigue, malaise, dyspnea with chest tightness and wheezing coupled unfortunately with significant panic attacks whenever she has been attempting to leave the house with a productive cough specifically of yellow sputum prompting ED evaluation be cautious. She does report that she is supposed to have a heart cath at [facility] in the next several weeks because of [...] BUN/creatinine 16/0.64, GFR 96, glucose 112, initial [id number] with repeat delta 25, chest x-ray with [...] 89.9 H, Lymph % (Auto) 6.5 L, Burt % (Auto) 2.8, Eos % (Auto) 0.0, [...] Affect: anxious Charges/Coding Palliative Care Palliative Care: 14895 Follow up 35-49 min Consulation Summary Current [...] a Healthcare Power No 12/26/24 21:29 of Trading Manager? Do You Want Additional Declined 12/26/24 21:29 [...] a result of this Palliative Care Encounter: [[id number], [id number] ] minutes were spent in total for [...] Cosigner Signature (if applicable): CC: ~ Signed [facility]09-05-2025 Progress note Author Dionne Porter [facility] Note Date/Time December 28, 2024 11:28pm [facility] Medical Records Department [address] [place] [address] Progress Note - Hospitalist 12/28/242310 MR#: [id number] Acct: [id number] Name: DENIA GONZALEZ Rep #:[id number] : 1955 69 From: Dionne Porter MD PCP: Dr. Yoseph Fall MD Status:AD M IN Location: [place] [address] Hospitalist Note Patient with notable tachycardia, improved [...] Cosigner Signature (if applicable): cc: ~* Signed [facility] Work Phone: 1(473) 565-899209-04-2025 Progress note [facility] Medical Records Department [address] [place] [address] Progress Note - Hospitalist 12/28/242310 MR#: [id number] Acct: [id number] Name: DENIA GONZALEZ Rep #:[id number] : 1955 69 From: Doinne Porter MD PCP: Dr. Yoseph Fall MD Status:AD M IN Location: [place] [address] Hospitalist Note Patient with notable tachycardia, improved [...] Cosigner Signature (if applicable): cc: ~* Signed [facility]09-04-2025 Consult note Author Joel Laurapremier healthwilberto [facility] Note Date/Time December 28, 2024 3:26pm [facility] Medical Records Department [address] [place] [address] Anesthesia Postop Eval II 12/28/24 1526 MR#: [id number] Acct: [id number] Name: DENAI GONZALEZ Rep #:[id number] : 1955 69 From: Joel WATKINS PCP: Dr. Yoseph Fall MD Status:AD M IN Y Race: C Location: [place] [address] 2-1 Anesthesia Postop Eval I Sum Postop [...] CRNA Cosigner Signature: Date CC: ~ Signed [facility] Work Phone: 1(769) 153-445909-04-2025 Progress note Author Lynne [facility] Note Date/Time December 28, 2024 3:24pm [facility] Medical Records Department [address] [place] [address] Progress Note 12/28/24 1450 MR#: [id number] Acct: [id number] Name: DENIA GONZALEZ Rep #:[id number] : 1955 69 From: Lynne Schafer MD PCP: Dr. Yoseph Fall MD Status:AD M IN Location: [place] [address] Subjective Subjective Patient seen and examined with [...] 90.6 H, Lymph % (Auto) 5.5 L, Burt % (Auto) 3.0, Eos % (Auto) 0.0, [...] I diastolic dysfunction. * To follow-up at [facility] as scheduled for evaluation for TAVR. * On Multaq, Coreg and verapamil. * #Hypertension: On Coreg and verapamil. IV hydralazine as needed #History of paroxysmal A-fib: On Coreg and Multaq. Eliquis held in light of anemia. #GERD: On PPI DVT prophylaxis: SCDs Disposition: likely dc tomorrow. Charges/Coding Visit Charges Inpatient E&M: 39496 Subs Hosp L2 12/28/24 1524 <Electronically signed by Lynne Schafer MD> Lynne Schafer MD Cosigner Signature (if applicable): CC: ~ Signed [facility] Work Phone: 1(753) 655-766209-04-2025 Consult note [facility] Medical Records Department [address] [place] [address] Anesthesia Postop Eval II 12/28/24 1526 MR#: [id number] Acct: [id number] Name: DENIA GONZALEZ Rep #:[id number] : 1955 69 From: Joel Nguyen RNA PCP: Dr. Yoseph Fall MD Status:AD M IN Y Race: C Location: [place] [address] 2-1 Anesthesia Postop Eval I Sum Postop [...] No Complications Anesthesia Complication: No 12/28/24 1526 ORAL COMMUNICATION INSTRUCTOR> Date _ Joel Hurd ORAL COMMUNICATION INSTRUCTOR Cosigner Signature: Date CC: ~ Signed [facility]09-04-2025 Progress note [facility] Medical Records Department [address] [facility] [place] [address] Progress Note 12/28/24 1450 MR#: [id number] Acct: [id number] Name: DENIA GONZALEZ Rep #:[id number] : 1955 69 From: Lynne Schafer MD PCP: Dr. Yoseph Fall MD Status:AD M IN Location: [place] [address] Subjective Subjective Patient seen and examined with [...] 90.6 H, Lymph % (Auto) 5.5 L, Burt % (Auto) 3.0, Eos % (Auto) 0.0, [...] I diastolic dysfunction. * To follow-up at [facility] as scheduled for evaluation for TAVR. * On Multaq, Coreg and verapamil. * #Hypertension: On Coreg and verapamil. IV hydralazine as needed #History of paroxysmal A-fib: On Coreg and Multaq. Eliquis held in light of anemia. #GERD: On PPI DVT prophylaxis: SCDs Disposition: likely dc tomorrow. Charges/Coding Visit Charges Inpatient E&M: 13889 Subs Hosp L2 12/28/24 1524 Lynne Higgins Signature (if applicable): CC: ~ Signed [facility]09-04-2025 Consult note Author Saul Liao [facility] Note Date/Time December 28, 2024 12:05pm [facility] Medical Records Department [address] [facility] [place] [address] Anesthesia Postop Eval I 12/28/24 1202 MR#: [id number] Acct: [id number] Name: DENIA GONZALEZ Rep #:[id number] : 1955 69 From: Saul Liao PCP: Dr. Yoseph Fall MD Status:AD M IN Y Race: C Location: [place] [address] 2-1 Anesthesia: Postop Eval I Current Vital [...] Saul Higgins Signature: Date CC: ~ Signed [facility] Work Phone: 1(580) 432-937209-04-2025 Consult note Author Lawson [facility] Note Date/Time December 28, 2024 11:25am [facility] Medical Records Department [address] [place] [address] Pre-Anesthesia Evaluation 12/28/24 1121 MR#: [id number] Acct: [id number] Name: DENIA GONZALEZ Rep #:[id number] : 1955 69 From: Lawson Henry MD PCP: Dr. Yoseph Fall MD Status:AD M IN Y Race: C Location: [place] [address] 2-1 ASA Classification* ASA Classification ASA Classification: [...] Procedure(s): Esophagogastroduodenoscopy Anesthesia History Anesthesia History - swaging machine operator: Anesthesia History - swaging machine operator Hx Hospitalization No 05/05/20 07:54 Any Problems [...] sips of water?: No PONV PONV - swaging machine operator: PONV - swaging machine operator Female HX of Motion Sickness HX of N/V After Surgery Non-Smoker Duration of Surgery greater than 60 minutes Number of Risk Factors PONV Score Height & Weight Height & Weight: Anesthesia: Height & Weight Height 5 ft 4 in 12/28/24 09:46 Weight: 74.8 kg 12/28/24 09:46 Body Mass Index (BMI) 28.3 12/28/24 09:46 Respiratory Assessment Respiratory Assessment - swaging machine operator: Respiratory Tract Infection Hx - swaging machine operator Hx Respiratory Tract Infection No 12/27/24 20:12 STOP Sleep Apnea STOP Sleep Apnea - swaging machine operator: STOP Sleep Apnea - swaging machine operator Hx Hypertension Yes 12/26/24 21:29 Hx Sleep [...] Tobacco Use History Tobacco Use History - swaging machine operator: Tobacco Use History - swaging machine operator Tobacco Use Cigarettes 07/20/23 02:52 Smoking Status Former smoker 12/27/24 00:38 Hx Tobacco Use Yes 12/26/24 21:29 Years Smoking Packs Smoked per Day Smoking Cessation Date was Yes - quit smoking within 15 12/26/24 21:29 within the last 15 years years Hx Smoking Cessation Date 09/22/24 12/26/24 21:29 Hx Smoking Cessation No 12/26/24 21:29 Counseling Hematologic Medial History Hematologic Hx - swaging machine operator: Hematologic 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 Hx - line 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 Hx of Blood Transfusion No 12/26/24 21:29 [...] confused, unrespo /Reproduction History /Reproductive History - swaging machine operator: /Reproductive Hx- swaging machine operator Hx Now No 12/27/24 20:12 Gestational Age [...] 12/27/24 10:00 12/27/24 10:21 Fluticasone 0.05% 1 [place] Nasal.Sry NASAL 1 spray DAILY HINA Administration Guaifenesin 10 ml 12/26/24 21:09 12/27/24 18:06 Guaifenesin 10 Ml Udc (200mg/10ml) PO 10 ml Q4H PRN PRN Administration COUGH/CONGESTION Hydralazine HCl 10 mg 12/26/24 21:09 Hydralazine 20 Mg/Ml Vial IV Q4H PRN PRN SBP > 160 Protocol Sodium Chloride 250 mls @ 15 mls/hr 12/26/24 21:24 IV .[id number] PRN Saline Flush Sodium Chloride 250 mls @ 15 mls/hr 12/26/24 21:24 IV .[id number] PRN Additional IVPB Infusion Pantoprazole Sodium 40 [...] PO 180 mg BID HINA Administration Protocol [facility] Medical History Afib [...] MD Cosigner Signature: Date CC: ~ Signed [facility] Work Phone: 1(703) 217-191409-04-2025 Consult note Author Kyle Mendenhall [facility] Note Date/Time December 28, 2024 11:19am [facility] Medical Records Department [address] [place] [address] Consultation - GI 12/28/24 1116 MR#: [id number] Acct: [id number] Name: DENIA GONZALEZ Rep #:[id number] : 1955 69 From: Kyle Mendenhall DO PCP: Dr. Yoseph Fall MD Status:AD M IN Location: [place] [id number]- 1 HPI Consult Data Date of Consult: [...] to see her due to decreasing hemoglobin. [facility] Medical History Afib [...] 90.6 H, Lymph % (Auto) 5.5 L, Burt % (Auto) 3.0, Eos % (Auto) 0.0, [...] ASAof 3. Charges/Coding Visit Charges Inpatient E&M: 26256 Init Hosp L3 12/28/24 1119 <Electronically signed by Kyle Friend DO> Cosigner Signature (if applicable): CC: Dr. Yoseph Fall MD~ Signed [facility] Work Phone: 1(450) 923-519109-04-2025 Consult note [facility] Medical Records Department [address] [place] [address] Anesthesia Postop Eval I 12/28/24 1202 MR#: [id number] Acct: [id number] Name: DENIA GONZALEZ Rep #:[id number] : 1955 69 From: Saul Liao PCP: Dr. Yoseph Fall MD Status:AD M IN Y Race: C Location: [place] [id number] 2-1 Anesthesia: Postop Eval I Current Vital [...] Saul Higgins Signature: Date CC: ~ Signed [facility]09-04-2025 Procedure note [facility] Medical Records Department [address] [place] [address] EGD Report MR#: [id number] Acct: [id number] Name: DENIA GONZALEZ Rep #:[id number] : 1955 69 From: Kyle Mendenhall DO [...] The examined esophagus was normal. Hematin (altered blood/bmyeyy-ckifez-vxvx material) was found in the gastric body. [...] Impression: - Normal esophagus. - Hematin (altered blood/fllyln-rdpqvn-oxdk material) in the gastric body. - Oozing gastric ulcers with pigmented material. Treated with a heater probe. 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 Treated with a heater probe. - No specimens collected. Recommendation: - Return patient to [facility] for ongoing care. - Resume previous diet. - Continue present medications. Procedure Code(s): --- Professional --- 63018, Small intestinal endoscopy, enteroscopy beyond second portion of duodenum, not including ileum; with ablation of tumor(s), polyp(s), or other lesion(s) not amenable to removal by hot biopsy forceps, bipolar cautery or snare technique 82999, 59,51, Small intestinal endoscopy, enteroscopy beyond second portion of duodenum, not including ileum; with control of bleeding (eg, injection, bipolar cautery, unipolar cautery, laser, heater probe, stapler, plasma generation technician) CPT copyright 2021 [employer]. All rights reserved. The codes documented in this report are preliminary and upon title manager review may be revised to meet current compliance requirements. Kyle Mendenhall DO 12/28/2024 11:52:52 AM This report has been signed electronically. Number of Addenda: 0 Note Initiated On: 12/28/2024 11:39 AM 12/28/24 1153 Date _ Kyle Mendenhall DO Cosigner Signature: Date (if indicated) CC: Dr. Yoseph Fall MD; Kyle Mendenhall DO ~ Date Dictated: 12/28/24 1139 Date Transcribed: Paleobotanist: RF Signed [facility]09-04-2025 Procedure note [facility] Medical Records Department [address] [place] [address] Provation Physician Letter MR#: [id number] Acct: [id number] Name: DENIA GONZALEZ Rep #:[id number] : 1955 69 From: Kyle Mendenhall DO PCP: Dr. Yoseph Fall MD Status:AD M IN 12/28/2024 Yoseph Fall [address] [place] [address] Re : Upper GI endoscopy procedure for Denia Gonzalez Dear Dr. Fall This procedure was performed on December. My impressions and recommendations are as follows: Impressions : - Normal esophagus. - Hematin (altered blood/sbliwm-outzgn-hpqx material) in the gastric body. - Oozing [...] ~ Date Dictated: 12/28/24 1139 Date Transcribed: Paleobotanist: RF Signed [facility]09-04-2025 Progress note Author Stacy abdi [facility] Note Date/Time December 28, 2024 9:41am [facility] Medical Records Department [address] [place] [address] Progress Note - Palliative 12/28/24914 MR#: [id number] Acct: [id number] Name: DENIA GONZALEZ Rep #:[id number] : 1955 69 From: Stacy Nazario FORMING MILL OPERATOR-C PCP: Dr. Yoseph Fall MD Status:AD M IN Location: [facility] [id number]- 1 Subjective Subjective 12/28/24: Prior to meeting [...] was then gently awakened by myself and BIOLOGICAL SCIENCE TECHNICIAN to do her vitals. Patient states that [...] allergic rhinitis, HTN who presents to the [facility] ED on 12/26/2024 with history of 3 to 4days of progressively worsening fatigue, malaise, dyspnea with chest tightness and wheezing coupled unfortunately with significant panic attacks whenever she has been attempting to leave the house with a productive cough specifically of yellow sputum prompting ED evaluation be cautious. She does report that she is supposed to have a heart cath at [facility] in the next several weeks because of [...] BUN/creatinine 16/0.64, GFR 96, glucose 112, initial gkxiorjy25 with repeat delta 25, chest x-ray with [...] 90.6 H, Lymph % (Auto) 5.5 L, Burt % (Auto) 3.0, Eos % (Auto) 0.0, [...] Attitude: calm Charges/Coding Palliative Care Palliative Care: 39834 Follow up 35-49 min Consulation Summary Current [...] a Healthcare Power No 12/26/24 21:29 of Trading Manager? Do You Want Additional Declined 12/26/24 21:29 [...] a result of this Palliative Care Encounter: [[id number] ] minutes were spent in total for [...] Cosigner Signature (if applicable): CC: ~ Signed [facility] Work Phone: 1(305) 141-393009-04-2025 Consult note [facility] Medical Records Department [address] [place] [address] Pre-Anesthesia Evaluation 12/28/24 1121 MR#: [id number] Acct: [id number] Name: DENIA GONZALEZ Rep #:[id number] : 1955 69 From: Lawson Henry MD PCP: Dr. Yoseph Fall MD Status:AD M IN Y Race: C Location: [place] [address] 2-1 ASA Classification* ASA Classification ASA Classification: [...] Procedure(s): Esophagogastroduodenoscopy Anesthesia History Anesthesia History - swaging machine operator: Anesthesia History - swaging machine operator Hx Hospitalization No 05/05/20 07:54 Any Problems [...] sips of water?: No PONV PONV - swaging machine operator: PONV - swaging machine operator Female HX of Motion Sickness HX of N/V After Surgery Non-Smoker Duration of Surgery greater than 60 minutes Number of Risk Factors PONV Score Height & Weight Height & Weight: Anesthesia: Height & Weight Height 5 ft 4 in 12/28/24 09:46 Weight: 74.8 kg 12/28/24 09:46 Body Mass Index (BMI) 28.3 12/28/24 09:46 Respiratory Assessment Respiratory Assessment - swaging machine operator: Respiratory Tract Infection Hx - swaging machine operator Hx Respiratory Tract Infection No 12/27/24 20:12 STOP Sleep Apnea STOP Sleep Apnea - swaging machine operator: STOP Sleep Apnea - swaging machine operator Hx Hypertension Yes 12/26/24 21:29 Hx Sleep [...] Tobacco Use History Tobacco Use History - swaging machine operator: Tobacco Use History - swaging machine operator Tobacco Use Cigarettes 07/20/23 02:52 Smoking Status Former smoker 12/27/24 00:38 Hx Tobacco Use Yes 12/26/24 21:29 Years Smoking Packs Smoked per Day Smoking Cessation Date was Yes - quit smoking within 15 12/26/24 21:29 within the last 15 years years Hx Smoking Cessation Date 09/22/24 12/26/24 21:29 Hx Smoking Cessation No 12/26/24 21:29 Counseling Hematologic Medial History Hematologic Hx - swaging machine operator: 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 - line 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 Hx of Blood Transfusion No 12/26/24 21:29 [...] confused, unrespo /Reproduction History /Reproductive History - swaging machine operator: /Reproductive Hx- swaging machine operator Hx Now No 12/27/24 20:12 Gestational Age [...] 12/27/24 10:00 12/27/24 10:21 Fluticasone 0.05% 1 [place] Nasal.Sry NASAL 1 spray DAILY HINA Administration Guaifenesin 10 ml 12/26/24 21:09 12/27/24 18:06 Guaifenesin 10 Ml Udc (200mg/10ml) PO 10 ml Q4H PRN PRN Administration COUGH/CONGESTION Hydralazine HCl 10 mg 12/26/24 21:09 Hydralazine 20 Mg/Ml Vial IV Q4H PRN PRN SBP > 160 Protocol Sodium Chloride 250 mls @ 15 mls/hr 12/26/24 21:24 IV .X44P62P PRN Saline Flush Sodium Chloride 250 mls @ 15 mls/hr 12/26/24 21:24 IV .P23P23M PRN Additional IVPB Infusion Pantoprazole Sodium 40 [...] PO 180 mg BID HINA Administration Protocol [facility] Medical History Afib [...] MD Cosigner Signature: Date CC: ~ Signed [facility]09-04-2025 Consult note [facility] Medical Records Department [address] [place] [address] Consultation - GI 12/28/24 1116 MR#: [id number] Acct: [id number] Name: DENIA GONZALEZ Rep #:[id number] : 1955 69 From: Kyle Mendenhall DO PCP: Dr. Yoseph Fall MD Status:AD M IN [facility] H[facility] Consult Data Date of [...] to see her due to decreasing hemoglobin. [facility] Medical History Afib [...] 90.6 H, Lymph % (Auto) 5.5 L, Burt % (Auto) 3.0, Eos % (Auto) 0.0, [...] ASAof 3. Charges/Coding Visit Charges Inpatient E&M: 72904 Init Hosp L3 12/28/24 1119 Cosigner Signature (if applicable): CC: Dr. Yoseph Fall MD~ Signed [facility]09-04-2025 Progress note [facility] Medical Records Department [address] [place] [address] Progress Note - Palliative 12/28/24 0915 MR#: [id number] Acct: [id number] Name: DENIA GONZALEZ Rep #:[id number] : 1955 69 From: Stacy Nazario FORMING MILL OPERATOR-C PCP: Dr. Yoseph Fall MD Status:AD M IN Location: [place] [address] Subjective Subjective 12/28/24: Prior to meeting with [...] was then gently awakened by myself and BIOLOGICAL SCIENCE TECHNICIAN to do her vitals. Patient states that [...] with allergic rhinitis,HTN who presents to the [facility] ED on 12/26/2024 with history of 3 to 4days of progressively worsening fatigue, malaise, dyspnea with chest tightness and wheezing coupled unfortunately with significant panic attacks whenever she has been attempting to leave the house with a productive cough specifically of yellow sputum prompting ED evaluation be cautious. She does report that she is supposed to have a heart cath at [facility] in the next several weeks because of [...] BUN/creatinine 16/0.64, GFR 96, glucose 112, initial [id number] with repeat delta 25, chest x-ray with [...] 90.6 H, Lymph % (Auto) 5.5 L, Burt % (Auto) 3.0, Eos % (Auto) 0.0, [...] Attitude: calm Charges/Coding Palliative Care Palliative Care: 50304 Follow up 35-49 min Consulation Summary Current [...] a Healthcare Power No 12/26/24 21:29 of Trading Manager? Do You Want Additional Declined 12/26/24 21:29 [...] a result of this Palliative Care Encounter: [[id number] ] minutes were spent in total for [...] Cosigner Signature (if applicable): CC: ~ Signed [facility]09-03-2025 Progress note Author Lynne Schafer [facility] Note Date/Time December 27, 2024 6:32pm [facility] Medical Records Department [address] [place] [address] Progress Note 12/27/24 1546 MR#: [id number] Acct: [id number] Name: DENIA GONZALEZ Rep #:[id number] : 1955 69 From: Lynne Schafer MD PCP: Dr. Yoseph Fall MD Status:AD M IN Location: [place] [address] Subjective Subjective Patient seen and examined. She [...] 83.2 H, Lymph % (Auto) 11.3 L, Burt % (Auto) 4.5, Eos % (Auto) 0.1, [...] 88.7 H, Lymph % (Auto) 8.1 L, Burt % (Auto) 1.7, Eos % (Auto) 0.0, [...] I diastolic dysfunction. * To follow-up at [facility] as scheduled for evaluation for TAVR. * On Multaq, Coreg and verapamil. * #Hypertension: On Coreg and verapamil. IV hydralazine as needed #History of paroxysmal A-fib: On Coreg and Multaq. Eliquis held in light of anemia. #GERD: On PPI DVT prophylaxis: SCDs Charges/Coding Visit Charges Inpatient E&M: 09392 Subs Hosp L2 12/27/24 1832 <Electronically signed by Lynne Schafer MD> Lynne Schafer MD Cosigner Signature (if applicable): CC: ~ Signed [facility] Work Phone: 1(692) 477-197609-03-2025 Progress note [facility] Medical Records Department [address] [place] [address] Progress Note 12/27/24 1546 MR#: [id number] Acct: [id number] Name: DENIA GONZALEZ Rep #:[id number] : 1955 69 From: Lynne Schafer MD PCP: Dr. Yoseph Fall MD Status:AD M IN Location: [place] [address]- Subjective Subjective Patient seen and examined. She [...] 83.2 H, Lymph % (Auto) 11.3 L, Burt % (Auto) 4.5, Eos % (Auto) 0.1, [...] 88.7 H, Lymph % (Auto) 8.1 L, Burt % (Auto) 1.7, Eos % (Auto) 0.0, [...] I diastolic dysfunction. * To follow-up at [facility] as scheduled for evaluation for TAVR. * On Multaq, Coreg and verapamil. * #Hypertension: On Coreg and verapamil. IV hydralazine as needed #History of paroxysmal A-fib: On Coreg and Multaq. Eliquis held in light of anemia. #GERD: On PPI DVT prophylaxis: SCDs Charges/Coding Visit Charges Inpatient E&M: 43059 Subs Hosp L2 12/27/24 1832 Lynne Schafer MD Cosigner Signature (if applicable): CC: ~ Signed [facility]09-03-2025 Consult note Author Stacy abdi [facility] Note Date/Time December 27, 2024 3:21pm [facility] Medical Records Department [address] [place] [address] Consultation - Palliative Care 12/27/24 1408 MR#: [id number] Acct: [id number] Name: DENIA GONZALEZ Rep #:[id number] : 1955 69 From: Stacy WATTS PCP: Dr. Yoseph Fall MD Status:AD M IN Location: [address] Medical History Afib Aortic valve stenosis [...] and anxious Charges/Coding Palliative Care Palliative Care: 64547 New Pt Consult 80+ min HPI Current [...] allergic rhinitis, HTN who presents to the [facility] ED on 12/26/2024 with history of 3 to 4days of progressively worsening fatigue, malaise, dyspnea with chest tightness and wheezing coupled unfortunately with significant panic attacks whenever she has been attempting to leave the house with a productive cough specifically of yellow sputum prompting ED evaluation be cautious. She does report that she is supposed to have a heart cath at [facility] in the next several weeks because of [...] BUN/creatinine 16/0.64, GFR 96, glucose 112, initial ogmpqvda26 with repeat delta 25, chest x-ray with [...] a Healthcare Power No 12/26/24 21:29 of Trading Manager? Do You Want Additional Declined 12/26/24 21:29 Information on Advanced Directives or Healthcare Proxy/DPOA comments: Patient states that her POA would be her significant other Mike. She is in the process of having that paperwork notarized. Psychosocial/Spiritual Information Living situation/Marital status: Patient states that she lives independently with her significant other providingassistance as well as her neighbor. Geographic location: [place] Supports: Family and friends Voodoo/Oneida or spiritual preference: No stated buddhism but states that she is spiritual Spiritual [...] 83.2 H, Lymph % (Auto) 11.3 L, Burt % (Auto) 4.5, Eos % (Auto) 0.1, [...] 88.7 H, Lymph % (Auto) 8.1 L, Burt % (Auto) 1.7, Eos % (Auto) 0.0, [...] abnormality. No significant change Reading [id number] Rhythm Strip Rhythm Strip: Sinus Rhythm Rate: [...] result of this Palliative Care Encounter: [ [id number],[id number]=81] minutes were spent in total for this [...] applicable): CC: Dr. Yoseph Fall MD~ Signed [facility] Work Phone: 1(494) 225-792009-03-2025 Consult note [facility] Medical Records Department [address] [place] [address] Consultation - Palliative Care 12/27/24 1408 MR#: [id number] Acct: [id number] Name: DENIA GONZALEZ Rep #:[id number] : 1955 69 From: Stacy WATTS PCP: Dr. Yoseph Fall MD Status:AD M IN Location: [address] Medical History Afib Aortic valve stenosis [...] and anxious Charges/Coding Palliative Care Palliative Care: 73295 New Pt Consult 80+ min HPI Current [...] with allergic rhinitis,HTN who presents to the [facility] ED on 12/26/2024 with history of 3 to 4days of progressively worsening fatigue, malaise, dyspnea with chest tightness and wheezing coupled unfortunately with significant panic attacks whenever she has been attempting to leave the house with a productive cough specifically of yellow sputum prompting ED evaluation be cautious. She does report that she is supposed to have a heart cath at [facility] in the next several weeks because of [...] a Healthcare Power No 12/26/24 21:29 of Trading Manager? Do You Want Additional Declined 12/26/24 21:29 Information on Advanced Directives or Healthcare Proxy/DPOA comments: Patient states that her POA would be her significant other Mike. She is in the process of having that paperwork notarized. Psychosocial/Spiritual Information Living situation/Marital status: Patient states that she lives independently with her significant other providingassistance as well as her neighbor. Geographic location: [place] Supports: Family and friends Voodoo/Oneida or spiritual preference: No stated buddhism but states that she is spiritual Spiritual [...] 83.2 H, Lymph % (Auto) 11.3 L, Burt % (Auto) 4.5, Eos % (Auto) 0.1, [...] 88.7 H, Lymph % (Auto) 8.1 L, Burt % (Auto) 1.7, Eos % (Auto) 0.0, [...] acute abnormality. No significant change Reading Location: -[id number] Rhythm Strip Rhythm Strip: Sinus Rhythm Rate: [...] result of this Palliative Care Encounter: [ [id number],[id number]=81] minutes were spent in total for this [...] applicable): CC: Dr. Yoseph Fall MD~ Signed [facility]09-03-2025 Telephone encounter Note* Telephone Encounter - Sukhi Marrero RN - 12/27/2024 2:47 PM EDT Palma Anguiano with [facility] calls to let provider know that patient was admitted to [facility] last evening for COPD exacerbation. Admission notes available within [facility]. Sukhi Marrero RN [facility]09-02-2025 History and physical note Author Dionne Porter [facility] Note Date/Time December 26, 2024 8:21pm [facility] Medical Records Department [address] [place] [address] H&P Exam - Hospitalist 12/26/241955 MR#: [id number] Acct: [id number] Name: DENIA GONZALEZ Rep #:[id number] : 1955 69 From: Dionne Porter MD PCP: Dr. Yoseph Fall MD Status:AD M IN Location: [facility] RYP051- 1 HPI - General General Date of [...] allergic rhinitis, HTN who presents to the [facility] ED on 12/26/2024 with history [...] supposed to have a heart cath at [facility] in the next several weeks because of [...] BUN/creatinine 16/0.64, GFR 96, glucose 112, initial dxcomjfr71 with repeat delta 25, chest x-ray with [...] 83.2 H, Lymph % (Auto) 11.3 L, Burt % (Auto) 4.5, Eos % (Auto) 0.1, [...] acute abnormality. No significant change Reading Location: [id number] Assessment & Plan Assessment/Plan (1) COPD with acute exacerbation: PLAN: Plan The patient is a 69 y/o F w/ PMHx: Valvular Heart Disease, GERD, RLS, Anxiety and Depression, Former tobacco use, Former EtOH Abuse, Hx Non-small cell lung cancer status post right lung lobectomy remotely 2003, COPD/Asthma with Chronic Hypoxic Respiratory Failure (2L NC) with allergic rhinitis, HTN who presents to the [facility] ED on 12/26/2024 with history [...] with plan as noted for evaluation at [facility] with upcoming cardiac catheterization for consideration of [...] 16 minutes. Charges/Coding Visit Charges Inpatient E&M: 75536 Init Hosp L3 Procedures Hospitalists Procedures: 55640 Advncd Care Plan 30 Min 12/26/242020 <Electronically signed by Dionne Porter MD> Cosigner Signature (if applicable): CC: Dr. Dionne Porter MD; Dr. Yoseph Fall MD~ Signed [facility] Work Phone: 1(459) 144-353909-02-2025 Discharge summary Author Marcel Zarate [facility] Note Date/Time December 26, 2024 8:00pm [facility] Medical Records Department [address] [place] [address] Emergency Department Summary 12/26/24 MR#: [id number] Acct: [id number] Name: DENIA GONZALEZ Rep #:[id number] : 1955 69 From: Marcel Zarate MD [...] is supposed to have a heartcath at [facility] within the next several weeks because of a leaky valve, her leg swelling is stable. She has been anticoagulated on apixaban because of A-fib. [facility] Medical History Afib Aortic valve [...] 83.2 H Lymph % (Auto) 11.3 L Burt % (Auto) 4.5 Eos % (Auto) 0.1 [...] abnormality. No significant change Reading Location: [id number] Rhythm Strip Rhythm Strip: Sinus Rhythm Rate: [...] Acute anemia Disposition Disposition: Acute Care Hospital [facility] What to do if you have Problems For any increased pain, shortness of breath, bleeding, nausea or vomiting, chestpain, or any unexpected problems, contact your Primary Care Provider. Call [facility] ([phone]) or report to the closest Emergency Room. Call 911 if necessary. 12/26/241999 <Electronically signed by Marcel Zarate MD> Cosigner Signature (if applicable): CC: Dr. Yoseph Fall MD ~ Signed [facility] Work Phone: 1(360) 739-875309-02-2025 History and physical note [facility] Medical Records Department [address] [place] [address] H&P Exam - Hospitalist 12/26/241955 MR#: [id number] Acct: [id number] Name: DENIA GONZALEZ Rep #:[id number] : 1955 69 From: Dionne Porter MD PCP: Dr. Yoseph Fall MD Status:AD M IN Location: [place] [address] HPI - General General Date of Admission: [...] with allergic rhinitis, HTNwho presents to the [facility] ED on 12/26/2024 with history of 3 to 4 days of progressively worsening fatigue, malaise, dyspnea with chest tightness and wheezing coupled unfortunately with significant panic attacks whenever she has been attempting to leave the house with a productivecough specifically of yellow sputum prompting ED evaluation be cautious. She does report that she is supposed to have a heart cath at [facility] in the next several weeks because of [...] BUN/creatinine 16/0.64, GFR 96, glucose 112, initial [id number] with repeat delta 25, chest x-ray with [...] 83.2 H, Lymph % (Auto) 11.3 L, Burt % (Auto) 4.5, Eos % (Auto) 0.1, [...] abnormality. No significant change Reading Location: [id number] Assessment & Plan Assessment/Plan (1) COPD with acute exacerbation: PLAN: Plan The patient is a 69 y/o F w/ PMHx: Valvular Heart Disease, GERD, RLS, Anxiety and Depression, Former tobacco use, Former EtOH Abuse, Hx Non-small cell lung cancer status post right lung lobectomy remotely 2003, COPD/Asthma with Chronic Hypoxic Respiratory Failure (2L NC) with allergic rhinitis, HTNwho presents to the [facility] ED on 12/26/2024 with history [...] with plan as noted for evaluation at [facility] with upcoming cardiac catheterization for consideration of [...] 16 minutes. Charges/Coding Visit Charges Inpatient E&M: 83362 Init Hosp L3 Procedures Hospitalists Procedures: 30121 Advncd Care Plan 30 Min 12/26/242020 Cosigner Signature (if applicable): CC: Dr. Dionne Porter MD; Dr. Yoseph Fall MD~ Signed [facility]09-02-2025 Discharge summary [facility] Medical Records Department [address] [place] [address] Emergency Department Summary 12/26/24 MR#: [id number] Acct: [id number] Name: DENIA GONZALEZ Rep #:[id number] : 1955 69 From: Marcel Zarate MD [...] is supposed to have a heartcath at [facility] within the next several weeks because of a leaky valve, her leg swelling is stable. She has been anticoagulated onapixaban because of A-fib. [facility] Medical History Afib Aortic valve [...] 83.2 H Lymph % (Auto) 11.3 L Burt % (Auto) 4.5 Eos % (Auto) 0.1 [...] acute abnormality. No significant change Reading Location: -[id number] Rhythm Strip Rhythm Strip: Sinus Rhythm Rate: [...] Acute anemia Disposition Disposition: Acute Care Hospital [facility] What to do if you have Problems For any increased pain, shortness of breath, bleeding, nausea or vomiting, chestpain, or any unexpected problems, contact your Primary Care Provider. Call [facility] ([phone]) or report tothe closest Emergency Room. Call 911 if necessary. 12/26/241999 Cosigner Signature (if applicable): CC: Dr. Yoseph Fall MD ~ Signed [facility]09-02-2025 Radiology Diagnostic study note [facility] Imaging Services [address] [place] [address] Chest 1 View (Portable) MR#: [id number] Acct: [id number] Name: DENIA GONZALEZ Rep #: [id number] : 1955 F 69 From: Yaa Becerra MD PCP: Dr. Yoseph Fall MD Status: SD E ER Study:Chest 1 View (Portable) Date of Exam: 12/26/24 Exam# [id number] Ordering Dr: Hema Cardona P. PROCEDURE: CHEST [...] abnormality. No significant change Reading Location: [id number] CC: Dr. Yoseph Fall MD; ED PHYSICIAN PROVIDER ~ Paleobotanist: Signed [facility]09-02-2025 Discharge summary Author Marcel Zarate [facility] Note Date/Time December 26, 2024 8:00pm [facility] Medical Records Department [address] [place] [address] Emergency Department Summary 12/26/24 MR#: [id number] Acct: [id number] Name: DENIA GONZALEZ Rep #:[id number] : 1955 69 From: Marcel Zarate MD [...] is supposed to have a heartcath at [facility] within the next several weeks because of a leaky valve, her leg swelling is stable. She has been anticoagulated on apixaban because of A-fib. [facility] Medical History Afib Aortic valve [...] 83.2 H Lymph % (Auto) 11.3 L Burt % (Auto) 4.5 Eos % (Auto) 0.1 [...] abnormality. No significant change Reading [id number] Rhythm Strip Rhythm Strip: Sinus Rhythm Rate: [...] Acute anemia Disposition Disposition: Acute Care Hospital [facility] What to do if you have Problems For any increased pain, shortness of breath, bleeding, nausea or vomiting, chestpain, or any unexpected problems, contact your Primary Care Provider. Call [facility] ([phone]) or report to the closest Emergency Room. Call 911 if necessary. 12/26/241999 <Electronically signed by Marcel Zarate MD> Cosigner Signature (if applicable): CC: Dr. Yoseph Fall MD ~ Signed [facility] Work Phone: 1(308) 382-169709-02-2025 Telephone encounter Note* Telephone Encounter - Ban Villafana LPN - 12/26/2024 9:56 AM EDT Images from the original note were not included. Electronic PA rec'd and completed. Prior authorization approved Payer: [employer] HOME DELIVERY [phone] Note from payer: CaseId:[id number];Status:Approved;Review Type:Prior Auth;Coverage Start Date:11/22/2024;Coverage End Date:12/22/2025; Approval [...] to its destination. To be filled at: [facility] [address] [place] [address] [address] [facility] - [phone] [facility]09-02-2025 Miscellaneous Notes* Telephone Encounter - Ban Villafana LPN - 12/26/2024 9:56 AM EDT Images from the original note were not included. Electronic PA rec'd and completed. Prior authorization approved Payer: [employer] HOME DELIVERY [phone] Note from payer: CaseId:[id number];Status:Approved;Review Type:Prior Auth;Coverage Start Date:11/22/2024;Coverage End Date:12/22/2025; Approval [...] to its destination. To be filled at: [facility] [address] [place] [address] - [address] [facility] - [phone] documented in this encounterOhio[facility]-29-2025 Telephone encounter Note * Telephone Encounter - Judy Bliss RN - 12/22/2024 9:40 AM EDT Daughter in [facility] called and notified that prescription was sent to pharmacy. Voices understanding. Judy Bliss RN [facility]08-29-2025 Miscellaneous Notes* Telephone Encounter - Judy Bliss RN - 12/22/2024 9:40 AM EDT Daughter in Law [facility] called and notified that prescription was sent [...] advise, Judy Bliss RN documented in this encounterOhiohealth [facility]08-29-2025 Telephone encounter Note * Telephone Encounter - Yoseph Fall MD - 12/22/2024 9:22 AM EDT OK for Atarax as ordered Yoseph Fall MD [facility]08-29-2025 Telephone encounter Note* Telephone Encounter - [...] review and advise, Judy Bliss RN [facility]08-26-2025 Telephone encounter Note* Telephone Encounter - Naima Haines MA - 12/19/2024 3:21 PM EDT [facility] notified. Naima Haines MA [facility]08-26-2025 Miscellaneous Notes* Telephone Encounter - Naima [...] 19, 2024 12:30 PM documented in this encounterOhiohealth [facility]08-26-2025 Telephone encounter Note * Telephone Encounter - Yoseph Fall MD - 12/19/2024 2:59 PM EDT OK to refill as ordered OK to increase Buspar to 20 mg bid as ordered to help with increased anxiety Yoseph Fall MD [facility]08-26-2025 Telephone encounter Note* Telephone Encounter - [...] Bliss RN December 19, 2024 12:30 PM [facility]08-22-2025 NotePROCEDURE: L/RHC PROCEDURE DATE: 01/05/25 PROCEDURE TIME: 10 am ARRIVE AT 8:30 am Report to the Central Lounge (first floor) at the hospital entrance at [address] Nothing to eat or drink after [...] of procedure. Please make arrangements for a light truck driver after the procedure. You will [...] call the Prep and Recovery area at [phone]. The schedule is not finalized until the afternoon, so please avoid calling before 4:30 pm.[facility]08-22-2025 NoteDx: Procedure: L/RHC Date/Time: 01/05/25 at 10:00a Surgeon: TATAYNA Location: [facility] Admission: OP Anesthesia: N/A Patient agreeable to above date/time. On PB calendar and printed card to start auth.[facility]08-22-2025 History of Present illness Narrative* Rubi Corbett MD - 12/15/2024 3:00 PM EDT Images from the original note were not included. [facility]: Cardiothoracic Surgery Multidisciplinary Heart Valve Clinic Date: 12/14/24 Patient:Denia Gonzalez 1955 69 y.o. female [id number] Subjective: HPI: Denia Gonzalez 69 y.o. referred by SADIQ Aguilar is being evaluated for aortic valve stenosis. Echocardiogram completed on 10/02/24 showed severe aortic valve stenosis with peak/mean gradients 75/50 mm Hg, SASHA 0.85 cm^2. Per note, patient with past medical history significant for COPD, chronic hypoxic respiratory failure, on home O2, HTN, smoker. Patient was admitted to [facility] 09/29/24 for respiratory failureand newly diagnosed [...] a past medical history of A-fib (CMS/HCC) ([facility]), Anxiety, Aortic stenosis, Asthma, Chronic respiratory failure ([facility]), COPD (chronic obstructive pulmonary disease) ([facility]), Depressed, History of ETOH abuse, [...] were no vitals taken for this visit. @[email or web address]@ Physical Exam Constitutional: Appearance: Normal appearance. HENT: [...] echocardiography,and other diagnostic images. documented in this [facility]08-22-2025 History of Present illness Narrative* Zaria Shea MD - 12/15/2024 2:30 PM EDT Images from the original note were not included. [facility] [place] [address] [facility] [address] Dept: [phone] Dept Visit type: New : 1955 Reason for Visit: New patient, Heart Valve Clinic Assessment and Plan 1. Preop cardiovascular exam - CBC auto differential - Comprehensive metabolic panel - Case Request Underwear Hemmer: Left and right heart cath / coronary [...] by mouth daily., Disp: , Rfl: HYDROcodone-acetaminophen (Bliss) 5-325 MG tablet, Take 1 tablet by [...] Father Stomach cancer Father documented in this [facility]08-15-2025 Telephone encounter Note* Telephone Encounter - Ban Villafana LPN - 12/08/2024 10:37 AM EDT Images from the original note were not included. prior authorization approved Payer: [employer] HOME DELIVERY [phone] Note from payer: CaseId:[id number];Status:Approved;Review Type:Prior Auth;Coverage Start Date:11/08/2024;Coverage End Date:12/08/2025; Approval [...] to its destination. To be filled at: [facility] [address] [place] [address] [address] [facility] - [phone] Pharmacy notified. [facility]08-15-2025 Miscellaneous Notes* Telephone Encounter - Ban Villafana LPN - 12/08/2024 10:37 AM EDT Images from the original note were not included. prior authorization approved Payer: [employer] [facility] DELIVERY [phone] Note from payer: CaseId:[id number];Status:Approved;Review Type:Prior Auth;Coverage Start Date:11/08/2024;Coverage End Date:12/08/2025; Approval [...] to its destination. To be filled at: [facility] [address] [place] [address] [address] [facility] - [phone] Pharmacy notified. * Telephone Encounter - Ban Villafana LPN - 12/08/2024 10:31 AM EDT Electronic PA rec'd and completed for cyclobenzaprine (FLEXERIL) 10 mg tablet documented in this encounterOhiohealth [facility]08-15-2025 Telephone encounter Note * Telephone Encounter - Ban Villafana LPN - 12/08/2024 10:31 AM EDT Electronic PA rec'd and completed for cyclobenzaprine (FLEXERIL) 10 mg tablet [facility]08-15-2025 Telephone encounter Note* Telephone Encounter - Nelson Robert APRN.CNP - 12/08/2024 9:26 AM EDT The following approved medication requests have been transmitted electronically. Requested Prescriptions Pending Prescriptions Disp Refills cyclobenzaprine (FLEXERIL) 10 mg tablet 60 tablet 5 Sig: Take 1 tablet by mouth two times a day as needed for muscle spasm. Nelson Robert APRN.CNP [facility]08-15-2025 Miscellaneous Notes* Telephone Encounter - Nelson [...] 08, 2024 9:19 AM documented in this encounterOhiohealth [facility]ide [facility]08-15-2025 Telephone encounter Note * Telephone Encounter [...] Louie RN December 08, 2024 9:19 AM [facility]08-05-2025 Telephone encounter Note* Telephone Encounter - Heena Howell - 11/28/2024 4:15 PM EDT Chart made and FORMING MILL OPERATOR packet mailed [id number] Miscellaneous Notes* Telephone Encounter - Heena Howell - 11/28/2024 4:15 PM EDT Chart made and FORMING MILL OPERATOR packet mailed * Telephone Encounter - Heena Howell - 11/23/2024 1:52 PM EDT Records scanned under Media and paper referral on my desk to make chart * Telephone Encounter - Heena Lynda - 11/22/2024 1:08 PM EDT VC appt made I need to make chart and mail FORMING MILL OPERATOR packet. Working on getting records scanned in. documented in this [facility]08-04-2025 Telephone encounter Note* Telephone Encounter - Yoseph Fall MD - 11/27/2024 3:12 PM EDT Noted and agree Yoseph Fall MD [facility]08-04-2025 Miscellaneous Notes* Telephone Encounter - Yoseph Fall MD - 11/27/2024 3:12 PM EDT Noted and agree Yoseph Fall MD * Telephone Encounter - Padmini Abbott, KAREN - 11/27/2024 2:12 PM EDT Rafa with [facility] Nursing calling and states he plans to add 1 more visit to pt's plan of care, to discharge patient. No call back needed if provider agreeable with this. Padmini Abbott, KAREN documented in this encounterOhiohealth [facility]ide [facility]08-04-2025 Telephone encounter Note * Telephone Encounter - Padmini Abbott RN - 11/27/2024 2:12 PM EDT Rafa with [facility] Nursing calling and states he plans to add 1 more visit to pt's plan of care, to discharge patient. No call back needed if provider agreeable with this. Padmini Abbott RN [facility]08-01-2025 Telephone encounter Note* Telephone Encounter - Mikayla Broussard RN - 11/24/2024 3:30 PM EDT Palliative Medicine at Home Care Coordination New Patient Note My chart note sent. Nurse introduced self and role of Pediatric Nurse Practitioner in Palliative Medicine. Reviewed contact sheet information and on-call process. Nurse educated patient on medication refill process. Nurse encouraged patient to call with any questions/concerns/symptom related issues. KAMALJIT Shrestha Er Medical Technician [facility]08-01-2025 Miscellaneous Notes* Telephone Encounter - Mikayla Broussard RN - 11/24/2024 3:30 PM EDT Palliative Medicine at Home Care Coordination New Patient Note My chart note sent. Nurse introduced self and role of Pediatric Nurse Practitioner in Palliative Medicine. Reviewed contact sheet information and on-call process. Nurse educated patient on medication refill process. Nurse encouraged patient to call with any questions/concerns/symptom related issues. KAMALJIT Shrestha Er Medical Technician documented in this encounterOhiohealth [facility]ide [facility]08-01-2025 Telephone encounter Note * Telephone Encounter - Shira Shaw LISW - 11/24/2024 11:11 AM EDT November 24, 2024 Opened by mistake, please disregard. ALTA Sagastume-[facility] Social Work [phone] [facility] Work Phone: 1(765) 280-245708-01-2025 Miscellaneous Notes* Telephone Encounter - Shira Shaw LISW - 11/24/2024 11:11 AM EDT November 24, 2024 Opened by mistake, please disregard. ALTA Sagastume-S [facility] Social Work [phone] documented in this encounterOhiohealth [facility]ide [facility]08-01-2025 Telephone encounter Note * Telephone Encounter - Yoseph Fall MD - 11/24/2024 10:30 AM EDT OK for doxycycline as ordered Yoseph Fall MD [facility]08-01-2025 Miscellaneous Notes* Telephone Encounter - Yoseph Fall MD - 11/24/2024 10:30 AM EDT OK for doxycycline as ordered Yoseph Fall MD * Telephone Encounter - Naima Haines MA - 11/23/2024 2:50 PM EDT Pt states she still feels like she needs an antibiotic, unable to take Levaquin due to medication interaction. Drug [place]. Naima Haines MA * Telephone Encounter - Yoseph Fall MD - 11/23/2024 2:33 PM EDT Does she feel that she still needs an antibiotic? Yoseph Fall MD * Telephone Encounter - Sukhi Marrero RN - 11/20/2024 3:14 PM EDT Rafa RN with [facility] calls to let provider know that [...] Dr. Fall for when returns or if FORMING MILL OPERATOR would review. Sukhi Marrero, RN documented in this encounterOhiohealth [facility]ide [facility]07-31-2025 Telephone encounter Note * Telephone Encounter - Naima Haines MA - 11/23/2024 2:50 PM EDT Pt states she still feels like she needs an antibiotic, unable to take Levaquin due to medication interaction. Drug [place]. Naima Haines MA [facility]07-31-2025 Telephone encounter Note* Telephone Encounter - Yoseph Fall MD - 11/23/2024 2:33 PM EDT Does she feel that she still needs an antibiotic? Yoseph Fall MD [facility]07-31-2025 Telephone encounter Note* Telephone Encounter - Yoseph Fall MD - 11/23/2024 2:23 PM EDT OK to refill as ordered Yoseph Fall MD [facility]07-31-2025 Miscellaneous Notes* Telephone Encounter - Yoseph [...] 23, 2024 1:00 PM documented in this encounterOhiohealth Riverside [facility] Hospital07-31-2025 NoteRecords scanned under Media and paper referral on my desk to make [facility] 11-23-2024 Telephone encounter Note* Telephone Encounter - Heena Howell - 11/23/2024 1:52 PM EDT Records scanned under Media and paper referral on my desk to make chart [id number] Telephone encounter Note* Telephone Encounter - Martínez [...] Louie RN November 23, 2024 1:00 PM [facility]07-31-2025 Instructions* Patient Instructions* Gregor Fernandez APRN.[place]IN [...] of breath, or swelling, please contact your javascript front end developer or go to the emergency room. - COPD and Breathing Support: - Continue using your nebulizer every 6 hours as directed. - Continue taking Spiriva and Singulair as prescribed. - You are doing well with nicotine patches and have stopped smoking. Please continue using the patches as needed. - A social media assistant will reach out to explore options for [...] reach out to your primary care provider, javascript front end developer,or palliative care team with any concerns. Good luck with your upcoming appointments and tests. Thank You, Gregor Fernandez CNP documented in this encounterOhiohealth Riverside [facility] Hospital07-31-2025 History of Present illness Narrative* Gregor Fernandez APRN.SHIPPING CHECKER - 11/23/2024 7:00 AM EDT PALLIATIVE MEDICINE AT HOME INITIAL CONSULT SERVICE DATE: 11/23/2024 Referring Physician: Yoseph Fall [id number] [facility] [id number] Primary Physician: Yoseph Fall MD IDENTIFICATION AND INTRODUCTION: Denia Gonzalez is a 69 year old female This visit took place Virtually; I have communicated my name and active licensure. The patient's identity and physical location were verified at the time of this visit. The patient or their legal medical customer service representative has been informed of the risks and benefits of -- and alternatives to -- treatment through a remote evaluation and consents to proceed with the evaluation remotely. The patient is being seen with daughter in law Recording using ambient Work[employer]ia software for draft documentation of the visit was discussed with the patient/authorized medical customer service representative; all questions welcomed and answered. Patient/authorized medical customer service representative agreed to proceed REASON FOR CONSULT: [...] Pt states she does not see a chief mate, she is not seeing pain management Subjective [...] screening but has not yet seen a chief mate. She uses 3 liters of oxygen and [...] longer distances. She receives home care from [facility] and the [facility] heart team. She manages herown medications [...] lung, unspecified site (HCC) 04/26/2003 Lung cancer NE (myocardial infarction) (HCC) 10-10 taken to [facility] "heart stopped" Obstructive chronic bronchitis with exacerbation [...] as directed. Dx: COPD J44.9 Nebulizer Accessories [facility] Mask and supplies as needed PULSE OXIMETER [facility] Use as directed to check oxygen saturation level ammonium lactate (AMLACTIN) 12 % lotion Apply 1 application to affected area as needed for Dry Skin. losartan (COZAAR) 50 mg tablet Take 0.5 tablets by mouth once daily. (Patient not taking: Reported on 11/23/2024) OXYGEN, HOME THERAPY, 2.5 L/min by Nasal Cannula route continuous. Use as directred Disposable Gloves (DISPOSABLE LATEX-FREE GLOVES) [facility] 1 Box once [...] Paternal Grandfather REVIEW OF SYSTEMS: Modified ESAS ([place] Symptom Assessment Scale): Information Provided By: Patient [...] and coordination with other healthcare providers. - boil off worker Shira to reach out to patient [...] patches. - Continue current medication regimen. - boil off worker to assist with obtaining a more [...] Dr. Fall to explore referral to a stage settings painter. 4. Generalized anxiety disorder (F41.1) Patient [...] remission. - No current follow-up with a chief mate; consider referral to Dr. Guzámn for ongoing monitoring. 7. Dependence on supplemental oxygen (Z99.81) Patient is dependent on 3L of supplemental oxygen and experiences anxiety about leaving the house due to fear of running out of oxygen. - boil off worker to assist with obtaining a more portable oxygen solution. - Monitor oxygen levels and adjust flow rate as necessary. 8. penitentiary (current) use of 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 (Z79.52) Patient [...] Medicine Nurse to do telephonic follow-up: No Wood Heel Back Liner Services: Telephonic discussion and assessment for community resources: Has portable tanks, is scared to leave her home. Could use a system that is rechargeable such as Inogen. Pt needs to be able to go see specialists such as pulmonology and cardiology Referral to Mobile Service Rv Technician: No, not at this time Recommendations will be communicated back to the consulting service by way of shared electronic medical record. Some elements copied from PCP note dated 10/17/24 , which have been updated where appropriate, and reflect current medical decision making from today, 11/23/24 Gregor Fernandez APRN.CNP November 23, 2024 9:53 AM documented in this encounterOhiohealth Riverside Methodist Hospital07-31-2025 NoteHNO ID: [id number] Author: GREGOR FERNANDEZ APRN.CNP Service: ? Author Type: Nurse Practitioner Type: Progress Notes Filed: 11/23/2024 10:01 Note Text: PALLIATIVE MEDICINE AT HOME INITIAL CONSULT SERVICE DATE: 11/23/2024 Referring Physician: Yoseph Fall [address] [facility] [address] Primary Physician: Yoseph Fall MD IDENTIFICATION AND INTRODUCTION: Denia Gonzalez is a 69 year old female This visit took place Virtually; I have communicated my name and active licensure. The patient's identity and physical location were verified at the time of this visit. The patient or their legal medical customer service representative has been informed of the risks and benefits of -- and alternatives to -- treatment through a remote evaluation and consents to proceed with the evaluation remotely. The patient is being seen with daughter in law Recording using [employer]ent software for draft documentation of the visit was discussed with the patient/authorized medical customer service representative; all questions welcomed and answered. Patient/authorized medical customer service representative agreed to proceed REASON FOR CONSULT: [...] Pt states she does not see a chief mate, she is not seeing pain management Subjective [...] screening but has not yet seen a chief mate. She uses 3 liters of oxygen and [...] longer distances. She receives home care from [facility] and the [facility] heart team. She manages her own [...] site (HCC) 04/26/2003 Kera (more content not included)...[facility]07-30-2025 Telephone encounter Note* Telephone Encounter - Heena Howell - 11/22/2024 1:08 PM EDT VC appt made I need to make chart and mail FORMING MILL OPERATOR packet. Working on getting records scanned in. [facility] [id number] NoteHNO ID: [id number] Author: GREGOR FERNANDEZ APRN.CNP Service: ? Author Type: Nurse Practitioner Type: Progress Notes Filed: 11/21/2024 14:29 Note Text: PALLIATIVE MEDICINE AT HOME INITIAL CONSULT SERVICE DATE: 11/21/2024 Referring Physician: SELF Primary Physician: Yoseph Fall MD NO SHOW; sent to [facility]07-28-2025 History of Present illness Narrative* Gregor Fernandez APRN.SHIPPING CHECKER - 11/20/2024 7:41 PM EDT PALLIATIVE MEDICINE AT HOME INITIAL CONSULT SERVICE DATE: 11/21/2024 Referring Physician: SELF Primary Physician: Yoseph Fall MD NO SHOW; sent to material scheduler documented in this encounterOhiohealth [facility]ide [facility]07-28-2025 Telephone encounter Note * Telephone Encounter - Sukhi Marrero RN - 11/20/2024 3:14 PM EDT Rafa RN with [facility] calls to let provider know that [...] Dr. Fall for when returns or if FORMING MILL OPERATOR would review. Sukhi Marrero, RN [facility]07-21-2025 Telephone encounter Note* Telephone Encounter - Padmini Abbott RN - 11/13/2024 4:51 PM EDT Mike returned call and given provider's message below. Andres Abbott RN [facility]07-21-2025 Miscellaneous Notes* Telephone Encounter - Padmini [...] Louie RN - 11/13/2024 2:08 PM EDT Bredna- nurse- [facility]- phoned to check on pcp reply to message below. Brenda reports when pt was discharged from [facility] she took the prednisone dose prescribed by [facility], and therefor ran out early. Advised [...] advise. Padmini Abbott RN documented in this encounterOhiohealth Riverside [facility] Hospital07-21-2025 Telephone encounter Note * Telephone Encounter - Naima Haines MA - 11/13/2024 3:46 PM EDT Message left for Mike to call back. Naima Haines MA [facility]07-21-2025 Telephone encounter Note* Telephone Encounter - Yoseph Fall MD - 11/13/2024 3:32 PM EDT New Rx done for 15 mg every day or every other day as needed Yoseph Fall MD [facility]07-21-2025 Telephone encounter Note* Telephone Encounter - Martínez Louie RN - 11/13/2024 2:08 PM EDT Brenda- nurse- [facility]- phoned to check on pcp reply to message below. Brenda reports when pt was discharged from [facility] she took the prednisone dose prescribed by [facility], and therefor ran out early. Advised message below was sent to pcp and we will call pt with his reply. [facility]07-18-2025 Telephone encounter Note* Telephone Encounter - [...] okay now. Please advise. Padmini Abbott RN [facility]07-11-2025 Telephone encounter Note* Telephone Encounter - Yoseph Fall MD - 11/03/2024 5:04 PM EDT Noted Yoseph Fall MD [facility]07-11-2025 Miscellaneous Notes* Telephone Encounter - Yoseph Fall MD - 11/03/2024 5:04 PM EDT Noted Yoseph Fall MD * Telephone Encounter - Martínez Louie RN - 10/25/2024 1:19 PM EDT Rafa [facility] reports patient asked him to call [...] - 10/24/2024 4:25 PM EDT Ubaldo with [facility] calls in regard [...] Jennifer Hennessy LPN documented in this encounterOhiohealth [facility] Evaluation note* Diagnosis Onset Date Resolution [...] hypertension chroni c February 08, 2025 9:23am [employer] Work Phone: [phone] Telephone encounter Note* Telephone Encounter - Nelson Robert APRN.CNP - 11/01/2024 10:31 AM EDT Noted for [facility]. Rx sent. The following approved medication requests have been transmitted electronically. Requested Prescriptions Pending Prescriptions Disp Refills nicotine (NICODERM) 14 mg/24 hr 28 patch 5 Sig: apply one patch transdermally as directed every 24 hours Nelson Robert APRN.CNP [facility]07-09-2025 Miscellaneous Notes* Telephone Encounter - Nelson Robert APRN.CNP - 11/01/2024 10:31 AM EDT Noted for [facility]. Rx sent. The following approved medication requests have been transmitted electronically. Requested Prescriptions Pending Prescriptions Disp Refills nicotine (NICODERM) 14 mg/24 hr 28 patch 5 Sig: apply one patch transdermally as directed every 24 hours Nelson Robert APRN.CNP * Telephone Encounter - Meenu Gurrola RN - 10/31/2024 3:47 PM EDT Fred nurse with [facility] calling in plan of care as he did nursing evaluation on patient today. Nursing will continue to see her 1x/week x 3 weeks. He states pt is also requesting a refill on her Nicotine Patch that the hospital prescribed for her. Send to [facility]. Pended. Next appt 01/[address] Fall. documented in this encounterOhiohealth [facility]07-08-2025 Telephone encounter Note * Telephone Encounter - Meenu Gurrola RN - 10/31/2024 3:47 PM EDT Fred nurse with [facility] calling in plan of care as he did nursing evaluation on patient today. Nursing will continue to see her 1x/week x 3 weeks. He states pt is also requesting a refill on her Nicotine Patch that the hospital prescribed for her. Send to [facility]. Pended. Next appt 01/[address] Fall. [facility]07-02-2025 Telephone encounter Note* Telephone Encounter - Martínez Louie RN - 10/25/2024 1:19 PM EDT Rafa [facility] reports patient asked him to call [...] Rafa agreeable and will let pt know. [facility]07-01-2025 Telephone encounter Note* Telephone Encounter - Lindsay Rios RN - 10/24/2024 5:25 PM EDT Rafa with [facility] is calling due to pharmacy unable to fill levaquin due to level 1 severe reaction with the multaq patient takes. When this happened when patient was d/c from [facility] the antibitoc was change to cefdinir 300mg. Rafa needs called back with information along with patient and a different medication sent to pharmacy. [facility]07-01-2025 Miscellaneous Notes* Telephone Encounter - Lindsay Rios RN - 10/24/2024 5:25 PM EDT Rafa with [facility] is calling due to pharmacy unable to fill levaquin due to level 1 severe reaction with the multaq patient takes. When this happened when patient was d/c from [facility] the antibitoc was change to cefdinir 300mg. Rafa needs called back with information along with patient and a different medication sent to pharmacy. * Telephone Encounter - Magalie Anguiano RN - 10/24/2024 5:00 PM EDT Pt called and is notified of providers message and instructions. Pt voices understanding. Magalie Angiuano RN * Telephone Encounter - Yoseph Fall [...] swelling. Please call patient back with reply. [phone] Padmini Abbott RN documented in this encounterOhiohealth [facility]ide [facility]07-01-2025 Telephone encounter Note * Telephone Encounter - Magalie Anguiano RN - 10/24/2024 5:00 PM EDT Pt called and is notified of providers message and instructions. Pt voices understanding. Magalie Anguiano RN [facility]07-01-2025 Telephone encounter Note* Telephone Encounter - Yoseph Fall MD - 10/24/2024 4:55 PM EDT OK to just see her for severe COPD Yoseph Fall MD [facility]07-01-2025 Telephone encounter Note* Telephone Encounter - Yoseph Fall MD - 10/24/2024 4:55 PM EDT OK for another 7 days of Levaquin Yoseph Fall MD [facility]07-01-2025 Telephone encounter Note* Telephone Encounter - Jeninfer Hennessy LPN - 10/24/2024 4:25 PM EDT Ubaldo with [facility] calls in regard to order for Palliative Care. In regards to DX: Ubaldo reports they can see pt for severe COPD. Ubaldo reports they cannot treat ptfor back pain unless it is in regards to cancer or something like that. Pt would need to see a painspecialist for that. Please review and advise. Jennifer Hennessy LPN [facility]07-01-2025 Telephone encounter Note* Telephone Encounter - [...] swelling. Please call patient back with reply. [phone] Padmini Abbott RN [facility]07-01-2025 Telephone encounter Note* Telephone Encounter - Mikayla Broussard RN - 10/24/2024 2:50 PM EDT Palliative Medicine Referral Assessment Referral Accepted: Yes, Location: Pall Med at Home. Patient current location: Home: Timeframe for schedulin-2 weeks Pall Med appropriate diagnosis: Diagnosis J44.9 (ICD-10-CM) - Stage 3 severe COPD by GOLD classification ([facility]) M54.40,G89.29 (ICD-10-CM) - Chronic low back pain with sciatica, sciatica laterality unspecified, unspecified back pain laterality Established with Inpatient Pall Med team: no Reason for consult: introduction to services, goals of care, fatigue, dyspnea, symptom support , and anxiety/mood and chronic pain [facility] no [facility] concerns identified by nurse. Mikayla Broussard RN October 24, 2024 [facility]07-01-2025 Miscellaneous Notes* Telephone Encounter - Mikayla Broussard RN - 10/24/2024 2:50 PM EDT Palliative Medicine Referral Assessment Referral Accepted: Yes, Location: Pall Med at Home. Patient current location: Home: Timeframe for schedulin-2 weeks Pall Med appropriate diagnosis: Diagnosis J44.9 (ICD-10-CM) - Stage 3 severe COPD by GOLD classification ([facility]) M54.40,G89.29 (ICD-10-CM) - Chronic low back pain with sciatica, sciatica laterality unspecified, unspecified back pain laterality Established with Inpatient Pall Med team: no Reason for consult: introduction to services, goals of care, fatigue, dyspnea, symptom support , and anxiety/mood and chronic pain Virtual Visit Clinic location: [facility]- no safety concerns identified by nurse. Mikayla Broussard RN October 24, 2024 documented in this encounterOhiohealth [facility]06-30-2025 Telephone encounter Note * Telephone Encounter - Naima Haines MA - 10/23/2024 3:42 PM EDT Rafa notified. Referral faxed, demo, insurance card, OV note, med list faxed to [facility] at [phone] with Palliative Care specified on fax. Naima Haines MA [facility]06-30-2025 Miscellaneous Notes* Telephone Encounter - Namia Haines MA - 10/23/2024 3:42 PM EDT Rafa notified. Referral faxed, demo, insurance card, OV note, [facility] at [phone] with Palliative Care specified on fax. Naima Haines MA * Telephone Encounter - Yoseph Fall MD - 10/23/2024 2:46 PM EDT OK for Palliative Care consult as requested Yoseph Fall MD * Telephone Encounter - Magalie Anguiano RN - 10/23/2024 1:33 PM EDT Rafa RN [facility] called in about Pt and states je [...] chronic generalized pain and is on the Bliss for it. He states the Pt would like a Palliative care referral for pain and breathing. I told him I don't think they do Palliative care for pain, but for breathing they do. Magalie Anguiano, KAREN documented in this encounterOhiohealth [facility]ide [facility]06-30-2025 Telephone encounter Note * Telephone Encounter - Yoseph Fall MD - 10/23/2024 2:46 PM EDT OK for Palliative Care consult as requested Yoseph Fall MD [facility]06-30-2025 Telephone encounter Note* Telephone Encounter - Magalie Anguiano RN - 10/23/2024 1:33 PM EDT Rafa JONES [facility] called in about Pt and states je [...] chronic generalized pain and is on the Bliss for it. He states the Pt would like a Palliative care referral for pain and breathing. I told him I don't think they do Palliative care for pain, but for breathing they do. Magalie Anguiano RN [facility]06-27-2025 Telephone encounter Note* Telephone Encounter - Padmini Abbott RN - 10/20/2024 4:43 PM EDT Daughter returned call and given provider's message below. Padmini Abobtt RN [facility]06-27-2025 Miscellaneous Notes* Telephone Encounter - Padmini [...] each ankle area. She has tried contacting [facility] over the past couple of [...] . Padmini Abbott RN documented in this encounterOhiohealth [facility]ide [facility]06-27-2025 Telephone encounter Note * Telephone Encounter - Naima Haines MA - 10/20/2024 4:27 PM EDT Message left for Symontee to call back. Naima Haines MA [facility]06-27-2025 Telephone encounter Note* Telephone Encounter - Yoseph Fall MD - 10/20/2024 4:20 PM EDT OK to start Lasix 20 mg daily as ordered to help with the swelling Yoseph Fall MD [facility]06-27-2025 Telephone encounter Note* Telephone Encounter - Padmini Abbott RN - 10/20/2024 3:41 PM EDT Patient's daughter Sinan Gonzalez calling in, with patient speaking in the background. Reports both of patient's feet have been "very" swollen for about 3 days now and asking if Dr. Fall will order pt a water pill. Swelling goes up into each ankle area. She has tried contacting [facility] over the past couple of [...] daughter with reply, . Padmini Abbott, RN [facility]06-27-2025 Telephone encounter Note* Telephone Encounter - Yoseph Fall MD - 10/20/2024 9:25 AM EDT Noted Palliative Care consult ordered Yoseph Fall MD [facility]06-27-2025 Miscellaneous Notes* Telephone Encounter - Yoseph Fall MD - 10/20/2024 9:25 AM EDT Noted Palliative Care consult ordered Yoseph Fall MD * Telephone Encounter - Martínez Louie RN - 10/19/2024 12:56 PM EDT Monae- nurse- [facility]- reports she saw patient today. [...] referral to palliative care. documented in this encounterOhiohealth [facility]06-27-2025 Telephone encounter Note * Telephone Encounter - Yoseph Fall MD - 10/20/2024 9:14 AM EDT Noted and agree Yoseph Fall MD [facility]06-27-2025 Miscellaneous Notes* Telephone Encounter - Yoseph Fall MD - 10/20/2024 9:14 AM EDT Noted and agree Yoseph Fall MD * Telephone Encounter - Judy Bliss RN - 10/19/2024 1:05 PM EDT Mercedez PT calling from [facility] to report plan of care for [...] 10:43 AM EDT Vilma OT calling from [facility] to report plan of care for [...] Advise, Judy Bliss RN documented in this encounterOhiohealth [facility]ide [facility] Hospital06-26-2025 Telephone encounter Note * Telephone Encounter - Judy Bliss RN - 10/19/2024 1:05 PM EDT Mer[facility]ez PT calling from [facility] to report plan of care for patient and physical therapy will visit patient 1 times a week for first week, 2 times a week for 4 weeks, and 1 time a week for 3 weeks. Physical therapy will work with patient on strength, gait transfers, and balance. No call back needed unless Questions Judy Bliss RN [facility]06-26-2025 Telephone encounter Note* Telephone Encounter - Martínez Louie RN - 10/19/2024 12:56 PM EDT Monae- nurse- [facility]- reports she saw patient today. Noted [...] pcp to place referral to palliative care. [facility]06-25-2025 Telephone encounter Note* Telephone Encounter - Judy Bliss RN - 10/18/2024 10:43 AM EDT Vilma OT calling from [facility] to report plan of care for [...] Please review and Advise, Judy Bliss RN [facility]06-24-2025 History of Present illness Narrative* Yoseph [...] Either the patient or their legal medical customer service representative has been informed of the risks and benefits of -- and alternatives to -- treatment through a remote evaluation andconsents to proceed with the evaluation remotely. Quit smoking 45 days ago. Is wearing the patch. States for the most part she feels better and thinks her breathing is some better. Has some days when she craves the cigarettes. Pt admitted to [facility] on 09/29/24 if SOB, arrived to [...] Dr. Junito Madrid, Cardio in 1 month,and Linsday Whitehead SHIPPING CHECKER with [facility] in 1 week. Is using 3 L continuous oxygen. Anila getting scheduled for TAVR Is going to be having HH PT come out 3 x a week. She has more pain due to moving around more. Has had nurses out a few times to check her vitals. Is getting set up with Pain Management through Hospice. Below copied from [facility]: History of Present Illness Chief Complaint: Shortness [...] Secondary to that she presents for evaluation [facility] Narrative Medical decision [...] 180 mg twice daily. Discussed with the javascript front end developer Dr. Hopkins today. Discharge on verapamil and [...] Past Histories independently gathered by the clinical ict customer support officer and the remaining scribed note accurately describes my personal service to the patient. Yoseph Fall MD The documentation for this note was completed by Naima Haines MA acting as scribe for Yoseph Fall MD. October 17, 2024 2:34 PM. Naima Haines MA documented in this encounterOhiohealth [facility]ide [facility]06-24-2025 NoteHNO ID: [id number] Author: YOSEPH FALL MD Service: ? Author [...] Either the patient or their legal medical customer service representative has been informed of the risks and benefits of -- and alternatives to -- treatment through a remote evaluation and consents to proceed with the evaluation remotely. Quit smoking 45 days ago. Is wearing the patch. States for the most part she feels better and thinks her breathing is some better. Has some days when she craves the cigarettes. Pt admitted to [facility] on 09/29/24 if SOB, arrived to [...] Cardio in 1 month, and Lindsay Whitehead SHIPPING CHECKER with [facility] in 1 week. Is using 3 L continuous oxygen. Will be getting scheduled for TAVR Is going to be having HH PT come out 3 x a week. She has more pain due to moving around more. Has had nurses out a few times to check her vitals. Is getting set up with Pain Management through Hospice. Below copied from [facility]: History of Present Illness Chief Complaint: Shortness [...] to maintain sats >90 (more content not included)...[facility]06-20-2025 Telephone encounter Note* Telephone Encounter - Naima Haines MA - 10/13/2024 4:52 PM EDT Edda notified. Naima Haines MA [facility]06-20-2025 Miscellaneous Notes* Telephone Encounter - Naima Haines MA - 10/13/2024 4:52 PM EDT Edda notified. Naima Haines MA * Telephone Encounter - Yoseph Fall MD - 10/13/2024 4:48 PM EDT OK for delay of care order as requested Yoseph Fall MD * Telephone Encounter - Judy Bliss RN - 10/13/2024 4:38 PM EDT Edda from [facility] calls and states that they were supposed to do a PT evaluation this week, however, they are still waiting on insurance. Edda asking for delay care order. Please review and advise, Judy Bliss RN documented in this encounterOhiohealth [facility]06-20-2025 Telephone encounter Note * Telephone Encounter - Yoseph Fall MD - 10/13/2024 4:48 PM EDT OK for delay of care order as requested Yoseph Fall MD [facility]06-20-2025 Telephone encounter Note* Telephone Encounter - Judy Bliss RN - 10/13/2024 4:38 PM EDT Edda from [facility] calls and states that they were supposed to do a PT evaluation this week, however, they are still waiting on insurance. Edda asking for delay care order. Please review and advise, Judy Bliss RN [facility]06-19-2025 Telephone encounter Note* Telephone Encounter - Naima Haines MA - 10/12/2024 11:55 AM EDT Tried to reach pt, VM full, unable to leave message. Naima Haines MA [facility]06-19-2025 Miscellaneous Notes* Telephone Encounter - Naima [...] hydrocodone was given to her 3 x/daily. Bliss refilled today #30 to take 1 pill [...] 12, 2024 9:47 AM documented in this encounterOhiohealth Riverside [facility] Hospital06-19-2025 Telephone encounter Note * Telephone Encounter - Yoseph Fall MD - 10/12/2024 11:46 AM EDT She may go back to this dose of prednisone; will review at her appt Yoseph Fall MD [facility]06-19-2025 Telephone encounter Note* Telephone Encounter - Naima Haines MA - 10/12/2024 10:11 AM EDT Per pt Patient states that in the hospital she was given 40 mg of the prednisone for 4 days. Also the hydrocodone was given to her 3 x/daily. Bliss refilled today #30 to take 1 pill BID. Do you want to refill for her to increase the dosage to 3 x a day or do you want to discuss furtherat pt appt on 10/17/24 Naima Haines MA [facility]06-19-2025 Telephone encounter Note* Telephone Encounter - [...] Orly Stacy October 12, 2024 9:47 AM [facility]06-19-2025 Telephone encounter Note* Telephone Encounter - Yoseph Fall MD - 10/12/2024 9:35 AM EDT OK to refill as ordered Yoseph Fall MD [facility]06-19-2025 Miscellaneous Notes* Telephone Encounter - Yoseph [...] 11, 2024 4:00 PM documented in this encounterOhiohealth Riverside [facility] Hospital06-18-2025 Telephone encounter Note * Telephone Encounter [...] Bliss RN October 11, 2024 4:00 PM [facility]06-17-2025 Telephone encounter Note* Telephone Encounter - Naima Haines MA - 10/10/2024 4:46 PM EDT Detailed message left on Rafa's identified VM. Naima Haines MA [facility]06-17-2025 Miscellaneous Notes* Telephone Encounter - Naima Haines MA - 10/10/2024 4:46 PM EDT Detailed message left on Rafa's identified VM. Naima Haines MA * Telephone Encounter - Yoseph Fall MD - 10/10/2024 4:41 PM EDT Noted OK to continue Coreg and inhalers; will monitor Yoseph Fall MD * Telephone Encounter - Martínez Louie, KAREN - 10/10/2024 4:30 PM EDT Rafa- [facility]- reports he did start of care [...] with pcp on 10/17/24 documented in this encounterOhiohealth Riverside [facility]06-17-2025 Telephone encounter Note * Telephone Encounter - Yoseph Fall MD - 10/10/2024 4:41 PM EDT Noted OK to continue Coreg and inhalers; will monitor Yoseph Fall MD [facility]06-17-2025 Telephone encounter Note* Telephone Encounter - Martínez Louie, RN - 10/10/2024 4:30 PM EDT Rafa- [facility]- reports he did start of [...] for hosp f/u with pcp on 10/17/24 [facility]06-17-2025 NoteHNO ID: [id number] Author: NAIMA HAINES MA Service: ? Author Type: [employer] Consultant Type: Progress Notes Filed: 10/12/2024 09:36 Note Text: TRANSITION CARE MANAGEMENT (TCM) INITIAL CONTACT [employer] Consultant Outreach Provider Action/FYI: 14 Day TCM Started [...] below 50,000 or Hemoglobin drops below 8. [facility] addendum to discharge summary stating that pharmacy raised concern about interaction between the Levaquin and Multaq. Levofloxacin was changed to Cefdinir. Follow up with Pulm, Dr. Guzmán in 1 month. Follow up with Cardio, Dr. Madrid in 1 month Follow up with Cardio FORMING MILL OPERATOR, Lindsay Whitehead in 1 week 10/10/24-Message left [...] of Discharge 10/09/2024 SUMMARY: -Pt discharged from [facility] on 10/09/24. -Admitted for: 1) Aortic Valve Stenosis 2) A-fib Below copied from [facility]: History of Present Illness Chief Complaint: Shortness [...] COVID influenza and RSV testing were negative[facility] [...] for TAVR on outp (more content not included)...[facility]06-17-2025 Telephone encounter Note* Telephone Encounter - Naima Haines MA - 10/10/2024 8:24 AM EDT TCM note started. Naima Haines MA [facility]06-17-2025 History of Present illness Narrative* Naima Haines MA - 10/10/2024 8:24 AM EDT TRANSITION CARE MANAGEMENT (TCM) INITIAL CONTACT [employer] Consultant Outreach Provider Action/FYI: 14 Day TCM Started on Nicotine patches 14 mg daily, Verapamil changed from 240 mg to 180 mg 1 pill BID, Mmfzwz285 mg 1 pill BID, Coreg 6.25 mg 1 Pill BID, Levofloxacin 500 mg 1 pill daily x 6 days and Eliquis 5 mg 1 pill BID (discontinue if platelet count drop below 50,000 or Hemoglobin drops below 8. [facility] addendum to discharge summary stating that pharmacy raised concern about interaction between the Levaquin and Multaq. Levofloxacin was changed to Cefdinir. Follow up with Pulm, Dr. Guzmán in 1 month. Follow up with Cardio, Dr. Madrid in 1 month Follow up with Cardio FORMING MILL OPERATOR, Lindsay Whitehead in 1 week 10/10/24-Message left [...] of Discharge 10/09/2024 SUMMARY: -Pt discharged from [facility] on 10/09/24. -Admitted for: 1) Aortic Valve Stenosis 2) A-fib Below copied from [facility]: History of Present Illness Chief Complaint: Shortness [...] 180 mg twice daily. Discussed with the javascript front end developer Dr. Hopkins today. Discharge on verapamil and [...] below 50,000 or Hemoglobin drops below 8. [facility] addendum to discharge summary stating that pharmacy raised concern about interaction between the Levaquin and Multaq. Levofloxacin was changed to Cefdinir. Were you told to hold any medications? No Were any of your medications discontinued? Yes Verapamil 240 mg [facility] addendum to discharge summary stating that [...] for provider to review documented in this encounterOhiohealth Riverside [facility]06-17-2025 Miscellaneous Notes* Telephone Encounter - Naima [...] PM EDT They may wait until [facility] can get the Multaq tomorrow Yoseph Fall MD * Telephone Encounter - Magalie Anguiano RN - 10/09/2024 7:20 PM EDT Pt's significant other Mike called in and reports Pt was in the hospital for 11 days and released about an hour and a half ago. He states [facility] in [place] doesn't have the Multaq in stock, but [...] advise. Magalie Anguiano, RN documented in this encounterOhiohealth Riverside Methodist Hospital06-17-2025 NotePatient Outreach (FAMPWS) DENIA GONZALEZ ([id number]) 1955 F Date Time Provider Department 10/10/24 NAIMA HAINES During your visit today, we recorded the following information about you: Naima Haines MA 10/12/2024 9:36 AM Signed TRANSITION CARE MANAGEMENT (TCM) INITIAL CONTACT [employer] Consultant Outreach Provider Action/FYI: 14 Day TCM Started [...] below 50,000 or Hemoglobin drops below 8. [facility] addendum to discharge summary stating that pharmacy raised concern about interaction between the Levaquin and Multaq. Levofloxacin was changed to Cefdinir. Follow up with PulmDr. Guzmán in 1 month. Follow up with Cardio, Dr. Madrid in 1 month Follow up with Cardio FORMING MILL OPERATOR, Lindsay Whitehead in 1 week 10/10/24-Message left [...] of Discharge 10/09/2024 SUMMARY: -Pt discharged from [facility] on 10/09/24. -Admitted for: 1) Aortic Valve Stenosis 2) A-fib Below copied from [facility]: History of Present Illness Chief Complaint: Shortness [...] COVID influenza and RSV testing were negative. [facility] is stable going against acute blood loss [...] and mean peak gradi (more content not included)...[facility]06-16-2025 Telephone encounter Note* Telephone Encounter - Magalie Anguiano RN - 10/09/2024 7:46 PM EDT Pt's significant other Mike called and is notified of providers message and instructions. He voices understanding. Pt was discharged today you can't do TCM on same day as discharge, you have to waituntil at least 1 day after D/C. Magalie Anguiano RN [facility]06-16-2025 Telephone encounter Note* Telephone Encounter - Naima Haines MA - 10/09/2024 7:35 PM EDT Message left for pt or significant other Mike to call back. Please start a TCM encounter/note when pt calls back. Has appt for hospital d/c on 10/17/24. Naima Haines MA [facility]06-16-2025 Telephone encounter Note* Telephone Encounter - Yoseph Fall MD - 10/09/2024 7:33 PM EDT They may wait until [facility] can get the Multaq tomorrow Yoseph Fall MD [facility]06-16-2025 Telephone encounter Note* Telephone Encounter - Magalie Anguiano RN - 10/09/2024 7:20 PM EDT Pt's significant other Mike called in and reports Pt was in the hospital for 11 days and released about an hour and a half ago. He states [facility] in [place] doesn't have the Multaq in stock, but [...] Please call and advise. Magalie Anguiano, RN [facility]06-16-2025 Discharge summary [facility] Medical Records Department [address] [place] [address] Discharge Summary 10/09/24 1558 MR#: [id number] Acct: [id number] Name: DENIA GONZALEZ Rep #:[id number] : 1955 69 From: Alessandro Liu PCP: Dr. Yoseph Fall MD Status:AD M IN [facility] Prov[facility] Date of Admission: 09/29/24 [...] mg twice daily. * Discussed with the javascript front end developer Dr. Hopkins today. Discharge on verapamil and [...] 86.9 H, Lymph % (Auto) 6.9 L, Burt %(Auto) 5.3, Eos % (Auto) 0.0, Baso [...] Health Service Charges/Coding Visit Charges Inpatient E&M: 42955 Disch Hosp >30min 10/09/24 1606 Cosigner Signature (if applicable): CC: Dr. Yoseph Fall MD; Dr. Alessandro Palma MD~ Signed [facility]06-16-2025 Discharge summary [facility] Medical Records Department [address] [place] [address] Instructions for Home/Discharge Instructions 10/09/24 1542 MR#: [id number] Acct: [id number] Name: DENIA GONZALEZ Rep #:[id number] : 1955 69 From: Alessandro Liu PCP: [...] failure, COPD exacerbation, pneumonia Attending Provider: Alessandro Plama Primary Care Provider: Yoseph Fall Consulting Providers: [...] MD; Dr. Jan Bolanos MD ~ Signed [facility]06-16-2025 [facility]06-16-2025 Telephone encounter Note* Telephone Encounter - Naima Haines MA - 10/09/2024 3:56 PM EDT Detailed message left on below's identified and confidential VM. Naima Haines MA [facility]06-16-2025 Miscellaneous Notes* Telephone Encounter - Naima [...] - 10/09/2024 3:09 PM EDT Iman with [facility] calls to ask if provider will follow their HH orders for SN, PT, OT. Patient discharging home today from [facility] after being treated for COPD exacerbation and new onset A-fib. Please call Iman back at [phone]. Sukhi Marrero RN documented [facility] Telephone encounter Note * Telephone Encounter - Yoseph Fall MD - 10/09/2024 3:54 PM EDT Yes, I will follow their HH orders for SN, PT, OT Yoseph Fall MD [facility]06-16-2025 Telephone encounter Note* Telephone Encounter - Sukhi Marrero RN - 10/09/2024 3:09 PM EDT Iman with [facility] calls to ask if provider will follow their HH orders for SN, PT, OT. Patient discharging home today from [facility] after being treated for COPD exacerbation and new onset A-fib. Please call Iman back at [phone]. Sukhi Marrero RN [facility]06-16-2025 Telephone encounter Note* Telephone Encounter - Yoseph Fall MD - 10/09/2024 2:09 PM EDT Noted Yoseph Fall MD [facility]06-16-2025 Miscellaneous Notes* Telephone Encounter - Yoseph Fall MD - 10/09/2024 2:09 PM EDT Noted Yoseph Fall MD * Telephone Encounter - Padmini Abbott RN - 10/09/2024 8:39 AM EDT Palma Anguiano with [facility] calling to update provider that patient has been at [facility] since 09/29/24. Padmini Abbott RN documented in [facility] Telephone encounter Note * Telephone Encounter - Padmini Abbott RN - 10/09/2024 8:39 AM EDT Palma Anguiano with [facility] calling to update provider that patient has been at [facility] since 09/29/24. Padmini Abbott RN [facility]06-15-2025 Progress note Author Lynne Schafer [facility] Note Date/Time October 08, 2024 3:37 pm [facility] Medical Records Department [address] [place] [address] Progress Note 10/08/24 1100 MR#: [id number] Acct: [id number] Name: DENIA GONZALEZ Rep #:[id number] : 1955 69 From: Lynne Schafer MD PCP: Dr. Yoseph Fall MD Status:AD M IN Location: [place] [address] Subjective Subjective Patient seen and examined. Patient [...] 89.1 H, Lymph % (Auto) 5.1 L, Burt %(Auto) 4.7, Eos % (Auto) 0.0, Baso [...] PO eliquis. Charges/Coding Visit Charges Inpatient E&M: 28777 Subs Hosp L3 10/08/24 1537 <Electronically signed by Lynne Schafer MD> Lynne Schafer MD Cosigner Signature (if applicable): CC: ~ Signed [facility] Work Phone: 1(176) 614-867306-15-2025 Progress note Author Michael Plasencia [facility] Note Date/Time October 08, 2024 2:15 pm [facility] Medical Records Department [address] [place] [address] Progress Note - Cardiology 10/08/24 1058 MR#: [id number] Acct: [id number] Name: DENIA GONZALEZ Rep #:[id number] : 1955 69 From: Michael Plasencia MD PCP: Dr. Yoseph Fall MD Status:AD M IN Location: [place] [address] Objective Data an episode of tachycardia today [...] 89.1 H, Lymph % (Auto) 5.1 L, Burt %(Auto) 4.7, Eos % (Auto) 0.0, Baso [...] 89.1 H, Lymph % (Auto) 5.1 L, Burt % (Auto) 4.7, Eos % (Auto) 0.0, [...] 10/08/24 at 1415 Visit Charges Inpatient E&M: 51979 Subs Hosp 10/08/24 1415<Electronically signed by Michael Plasencia MD> Cosigner Signature (if applicable): cc: ~* Signed [facility] Work Phone: 1(601) 689-238306-15-2025 Progress note [facility] Medical Records Department [address] [place] [address] Progress Note 10/08/24 1100 MR#: [id number] Acct: [id number] Name: DENIA GONZALEZ Rep #:[id number] : 1955 69 From: Lynne Schafer MD PCP: Dr. Yoseph Fall MD Status:AD M IN [facility] Subjective Subjective Patient seen and examined. Patient went into A-fib with RVR today with a heart rate going up to fqu628y and 190s. She did complain of palpitations [...] 89.1 H, Lymph % (Auto) 5.1 L, Burt %(Auto) 4.7, Eos % (Auto) 0.0, Baso [...] PO eliquis. Charges/Coding Visit Charges Inpatient E&M: 48545 Subs Hosp L3 10/08/24 1537 Lynne Schafer MD Cosigner Signature (if applicable): CC: ~ Signed [facility]06-15-2025 Progress note [facility] Medical Records Department [address] [place] [address] Progress Note - Cardiology 10/08/24 1058 MR#: [id number] Acct: [id number] Name: DENIA GONZALEZ Rep #:[id number] : 1955 69 From: Michael Plasencia MD PCP: Dr. Yoseph Fall MD Status:AD M IN Location: [place] [address] Objective Data an episode of tachycardia today [...] 89.1 H, Lymph % (Auto) 5.1 L, Burt %(Auto) 4.7, Eos % (Auto) 0.0, Baso [...] 89.1 H, Lymph % (Auto) 5.1 L, Burt % (Auto) 4.7, Eos % (Auto) 0.0, [...] 10/08/24 at 1415 Visit Charges Inpatient E&M: 54349 Subs Hosp L3 10/08/24 1415 Cosigner Signature (if applicable): cc: ~* Signed [facility]06-14-2025 Progress note Author Lynne Schafer [facility] Note Date/Time October 07, 2024 6:29 pm [facility] Medical Records Department [address] [place] [address] Progress Note 10/07/24 141 MR#: [id number] Acct: [id number] Name: DENIA GONZALEZ Rep #:[id number] : 1955 69 From: Lynne Schafer MD PCP: Dr. Yoseph Fall MD Status:AD M IN Location: [place] [address] Subjective Subjective Patient seen and examined. She [...] 89.2 H, Lymph % (Auto) 4.3 L, Burt %(Auto) 5.4, Eos % (Auto) 0.0, Baso [...] by tomorrow. Charges/Coding Visit Charges Inpatient E&M: 96616 Subs Hosp L2 10/07/249 <Electronically signed by Lynne Schafer MD> Lynne Schafer MD Cosigner Signature (if applicable): CC: ~ Signed [facility] Work Phone: 1(408) 832-389306-14-2025 Progress note [facility] Medical Records Department [address] [place] [address] Progress Note 10/07/24 1413 MR#: [id number] Acct: [id number] Name: DENIA GONZALEZ Rep #:[id number] : 1955 69 From: Lynne Schafer MD PCP: Dr. Yoseph Fall MD Status:AD M IN Location: [place] [address]- Subjective Subjective Patient seen and examined. She [...] 89.2 H, Lymph % (Auto) 4.3 L, Burt %(Auto) 5.4, Eos % (Auto) 0.0, Baso [...] by tomorrow. Charges/Coding Visit Charges Inpatient E&M: 13237 [facility] Hosp L2 10/07/24 3590 Lynne Schafer MD Cosigner Signature (if applicable): CC: ~ Signed [facility]06-14-2025 Progress note Author Michael Plasencia [facility] Note Date/Time October 07, 2024 3:50 pm [facility] Medical Records Department [address] [place] [address] Progress Note - Cardiology 10/07/24 1059 MR#: [id number] Acct: [id number] Name: DENIA GONZALEZ Rep #:[id number] : 1955 69 From: Michael Plasencia MD PCP: Dr. Yoseph Fall MD Status:AD M IN Location: [place] [address] Objective Data No further episodes overnight Vital [...] 89.2 H, Lymph % (Auto) 4.3 L, Burt %(Auto) 5.4, Eos % (Auto) 0.0, Baso [...] 89.2 H, Lymph % (Auto) 4.3 L, Burt % (Auto) 5.4, Eos % (Auto) 0.0, [...] 10/07/24 at 1550 Visit Charges Inpatient E&M: 93105 Subs Hosp L3 10/07/24 1550<Electronically signed by Michael Plasencia MD> Cosigner Signature (if applicable): cc: ~* Signed [facility] Work Phone: 1([phone] 475-347606-14-2025 Progress note [facility] Medical Records Department [address] [place] [address] Progress Note - Cardiology 10/07/24 1059 MR#: [id number] Acct: [id number] Name: DENIA GONZALEZ Rep #:[id number] : 1955 69 From: Michael Plasencia MD PCP: Dr. 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 Michael Plasencia MD on 10/07/24 at 1550 Visit Charges Inpatient E&M: 37706 [facility] Hosp 10/07/24 1550 Cosigner Signature (if applicable): cc: ~* Signed [facility]06-13-2025 Progress note Author Michael Plasencia [facility] Note Date/Time October 06, 2024 9:11 pm [facility] Medical Records Department [address] [place] [address] Progress Note - Cardiology 10/06/24 1422 MR#: [id number] Acct: [id number] Name: DENIA GONZALEZ Rep #:[id number] : 1955 69 From: Michael Plasencia MD PCP: Dr. Yoseph Fall MD Status:AD M IN Location: [place] [address] Subjective Subjective Reports palpitations with these episodes. [...] 90.6 H, Lymph % (Auto) 4.6 L, Burt %(Auto) 3.9, Eos % (Auto) 0.0, Baso [...] 90.6 H, Lymph % (Auto) 4.6 L, Burt % (Auto) 3.9, Eos % (Auto) 0.0, [...] stroke evaluation. Charges/Coding Visit Charges Inpatient E&M: 67450 Subs Hosp L3 10/06/242108 <Electronically signed by Michael Plasencia MD> Cosigner Signature (if applicable): CC: ~ Signed ADDENDUM by Dr. Michael Plasencia MD on 10/06/24 at 2111 Addendum If it turns out to be atrial flutter she will need anticoagulation for stroke prevention 10/06/242110<Electronically signed by Michael Plasencia MD> Cosigner Signature (if applicable): cc: ~* Signed [facility] Work Phone: 1(235) 384-421606-13-2025 Progress note [facility] Medical Records Department [address] [place] [address] Progress Note - Cardiology 10/06/24 1422 MR#: [id number] Acct: [id number] Name: DENIA GONZALEZ Rep #:[id number] : 1955 69 From: Michael Plasencia MD PCP: Dr. Yoseph Fall MD Status:AD M IN Location: [place] [address] Subjective Subjective Reports palpitations with these episodes. [...] 90.6 H, Lymph % (Auto) 4.6 L, Burt %(Auto) 3.9, Eos % (Auto) 0.0, Baso [...] 90.6 H, Lymph % (Auto) 4.6 L, Burt % (Auto) 3.9, Eos % (Auto) 0.0, [...] stroke evaluation. Charges/Coding Visit Charges Inpatient E&M: 78020 [facility] Hosp L3 10/06/242108 Cosigner Signature (if applicable): CC: ~ Signed ADDENDUM by Dr. Michael Plasencia MD on 10/06/24 at 2111 Addendum If it turns out to be atrial flutter she will need anticoagulation for stroke prevention 10/06/242110 Cosigner Signature (if applicable): cc: ~* Signed [facility]06-13-2025 Progress note Author Lynne Schafer [facility] Note Date/Time October 06, 2024 5:23 pm [facility] Medical Records Department [address] [place] [address] Progress Note 10/06/24 1720 MR#: [id number] Acct: [id number] Name: DENIA GONZALEZ Rep #:[id number] : 1955 69 From: Lynne Schafer MD PCP: Dr. Yoseph Fall MD Status:AD M IN Location: [place] [address] Subjective Subjective Patient seen and examined today. [...] 90.6 H, Lymph % (Auto) 4.6 L, Burt %(Auto) 3.9, Eos % (Auto) 0.0, Baso [...] therapeutic Lovenox Charges/Coding Visit Charges Inpatient E&M: 02567 Subs Hosp L2 10/06/24 172 <Electronically signed by Lynne Schafer MD> Lynne Schafer MD Cosigner Signature (if applicable): CC: ~ Signed [facility] Work Phone: 1([phone] 105-326606-13-2025 Progress note [facility] Medical Records Department [facility] [place] [address] Progress Note 10/06/24 172 MR#: [id number] Acct: [id number] Name: DENIA GONZALEZ Rep #:[id number] : 1955 69 From: Lynne Schafer MD PCP: Dr. Yoseph Fall MD Status:AD M IN Location: [place] [address] Subjective Subjective Patient seen and examined today. [...] [facility] Objective Data Objective Data Vital Signs: [...] 90.6 H, Lymph % (Auto) 4.6 L, Burt %(Auto) 3.9, Eos % (Auto) 0.0, Baso [...] therapeutic Lovenox Charges/Coding Visit Charges Inpatient E&M: 99716 Subs Hosp L2 10/06/24 1723 Lynne Schafer MD Cosigner Signature (if applicable): CC: ~ Signed [facility]06-12-2025 Progress note Author Lynne [facility] Note Date/Time October 05, 2024 6:28 pm [facility] Medical Records Department [address] [place] [address] Progress Note 10/05/24 1233 MR#: [id number] Acct: [id number] Name: DENIA GONZALEZ Rep #:[id number] : 1955 69 From: Lynne Schafer MD PCP: Dr. Yoseph Fall MD Status:AD M IN Location: [place] [address] Subjective Subjective Patient seen and examined. She [...] 91.1 H, Lymph % (Auto) 5.2 L, Burt %(Auto) 3.0, Eos % (Auto) 0.0, Baso [...] by tomorrow. Charges/Coding Visit Charges Inpatient E&M: 51389 Subs Hosp L2 10/05/24 1828 <Electronically signed by Lynne Schafer MD> Lynne Schafer MD Cosigner Signature (if applicable): CC: ~ Signed [facility] Work Phone: 1(234) 704-300606-12-2025 Progress note [facility] Medical Records Department [address] [facility] [place] [address] Progress Note 10/05/24 1233 MR#: [id number] Acct: [id number] Name: DENIA GONZALEZ Rep #:[id number] : 1955 69 From: Lynne Schafer MD PCP: Dr. Yoseph Fall MD Status:AD M IN Location: [place] [address] Subjective Subjective Patient seen and examined. She [...] 91.1 H, Lymph % (Auto) 5.2 L, Burt %(Auto) 3.0, Eos % (Auto) 0.0, Baso [...] by tomorrow. Charges/Coding Visit Charges Inpatient E&M: 76399 Subs Hosp L2 10/05/24 4944 Lynne Schafer MD Cosigner Signature (if applicable): CC: ~ Signed [facility]06-11-2025 Progress note Author Lynne Schafer [facility] Note Date/Time October 04, 2024 5:59 pm [facility] Medical Records Department [address] [place] [address] Progress Note 10/04/24 1206 MR#: [id number] Acct: [id number] Name: DENIA GONZALEZ Rep #:[id number] : 1955 69 From: Lynne Schafer MD PCP: Dr. Yoseph Fall MD Status:AD M IN Location: [place] [address] Subjective Subjective Patient seen and examined. She [...] 90.1 H, Lymph % (Auto) 6.4 L, Burt %(Auto) 2.9, Eos % (Auto) 0.0, Baso [...] 24-48 hours. Charges/Coding Visit Charges Inpatient E&M: 29614 Subs Hosp L2 10/04/24 5397 <Electronically signed by Lynne Schafer MD> Lynne Schafer MD Cosigner Signature (if applicable): CC: ~ Signed [facility] Work Phone: 1(430) 511-685006-11-2025 Progress note [facility] Medical Records Department [address] [place] [address] Progress Note 10/04/24 1206 MR#: [id number] Acct: [id number] Name: DENIA GONZALEZ Rep #:[id number] : 1955 69 From: Lynne Schafer MD PCP: Dr. Yoseph Fall MD Status:AD M IN Location: [place] [address] Subjective Subjective Patient seen and examined. She [...] 90.1 H, Lymph % (Auto) 6.4 L, Burt %(Auto) 2.9, Eos % (Auto) 0.0, Baso [...] 24-48 hours. Charges/Coding Visit Charges Inpatient E&M: 50777 Subs Hosp L2 10/04/24 5323 Lynne Schafer MD Cosigner Signature (if applicable): CC: ~ Signed [facility]06-11-2025 Progress note Author Junito Madrid [facility] Note Date/Time October 04, 2024 10:2 2am [facility] Medical Records Department [address] [place] [address] Progress Note - Cardiology 10/04/24 1014 MR#: [id number] Acct: [id number] Name: DENIA GONZALEZ Rep #:[id number] : 1955 69 From: Junito Madrid MD PCP: Dr. Yoseph Fall MD Status:AD M IN Location: [place] [address] Subjective Subjective Patient is resting comfortably in [...] 90.1 H, Lymph % (Auto) 6.4 L, Burt %(Auto) 2.9, Eos % (Auto) 0.0, Baso [...] 90.1 H, Lymph % (Auto) 6.4 L, Burt % (Auto) 2.9, Eos % (Auto) 0.0, [...] baseline she will be reevaluated inin the [place] [facility] office for further evaluation and [...] tolerated. 3. Patient should follow-up with the [place] [facility] in 2 to 3 weeks after discharge when she is completely cleared of her COPD exacerbation. 4. The patient should call to schedule that appointment with Dr. Madrid or one of the advanced practitioners. 5. From a cardiovascular standpoint the patient should be able to be dischargedonce her COPD exacerbation is controlled. Charges/Coding Visit Charges Inpatient E&M: 95496 Subs Hosp L3 10/04/24 1022 <Electronically signed by Junito Madrid MD> Cosigner Signature (if applicable): CC: ~ Signed [facility] Work Phone: 1(178) 837-463206-11-2025 Progress note [facility] Medical Records Department [address] [place] [address] Progress Note - Cardiology 10/04/24 1014 MR#: [id number] Acct: [id number] Name: DENIA GONZALEZ Rep #:[id number] : 1955 69 From: Junito Madrid MD PCP: Dr. Yoseph Fall MD Status:AD M IN Location: [place] [address] Subjective Subjective Patient is resting comfortably in [...] 90.1 H, Lymph % (Auto) 6.4 L, Burt %(Auto) 2.9, Eos % (Auto) 0.0, Baso [...] 90.1 H, Lymph % (Auto) 6.4 L, Burt % (Auto) 2.9, Eos % (Auto) 0.0, [...] baseline she will be reevaluated inin the [place] [facility] office for further evaluation and [...] tolerated. 3. Patient should follow-up with the [place] [facility] in 2 to 3 weeks after discharge when she is completely cleared of her COPD exacerbation. 4. The patient should call to schedule that appointment with Dr. Madrid or one of the advanced practitioners. 5. From a cardiovascular standpoint the patient should be able to be dischargedonce her COPD exacerbation is controlled. Charges/Coding Visit Charges Inpatient E&M: 86025 [facility] Hosp 10/04/24 1022 Cosigner Signature (if applicable): CC: ~ Signed [facility]06-10-2025 Progress note Author Lynne Schafer [facility] Note Date/Time October 03, 2024 5:50 pm [facility] Medical Records Department [address] [place] [address] Progress Note 10/03/24 1218 MR#: [id number] Acct: [id number] Name: DENIA GONZALEZ Rep #:[id number] : 1955 69 From: Lynne Schafer MD PCP: Dr. Yoseph Fall MD Status:AD M IN Location: [place] [address] 1 Subjective Subjective Patient seen and examined [...] 93.2 H, Lymph % (Auto) 5.2 L, Burt %(Auto) 1.2, Eos % (Auto) 0.0, Baso [...] therapeutic Lovenox Charges/Coding Visit Charges Inpatient E&M: 47278 Subs Hosp L2 10/03/24 3498 <Electronically signed by Lynne Schafer MD> Lynne Schafer MD Cosigner Signature (if applicable): CC: ~ Signed [facility] Work Phone: 1(173) 241-204906-10-2025 Progress note [facility] Medical Records Department [address] [place] [address] Progress Note 10/03/24 1218 MR#: [id number] Acct: [id number] Name: DENIA GONZALEZ Rep #:[id number] : 1955 69 From: Lynne Schafer MD PCP: Dr. Yoseph Fall MD Status:AD M IN Location: [place] [address] Subjective Subjective Patient seen and examined with [...] 93.2 H, Lymph % (Auto) 5.2 L, Burt %(Auto) 1.2, Eos % (Auto) 0.0, Baso [...] therapeutic Lovenox Charges/Coding Visit Charges Inpatient E&M: 72473 Subs Hosp L2 10/03/24 5346 Lynne Schafer MD Cosigner Signature (if applicable): CC: ~ Signed [facility]06-10-2025 Progress note Author Junito Madrid [facility] Note Date/Time October 03, 2024 8:49 am [facility] Medical Records Department [address] [place] [address] Progress Note - Cardiology 10/03/24 0840 MR#: [id number] Acct: [id number] Name: DENIA GONZALEZ Rep #:[id number] : 1955 69 From: Junito Madrid MD PCP: Dr. Yoseph Fall MD Status:AD M IN Location: [place] [address] Subjective Subjective Patient is resting comfortably in [...] MD Yoseph Fall Performed By: Saray Torrez [facility] Physical Exam Const alert and oriented [...] as tolerated. Charges/Coding Visit Charges Inpatient E&M: 50881 Subs Hosp L3 10/03/24 0849 <Electronically signed by Junito Madrid MD> Cosigner Signature (if applicable): CC: ~ Signed [facility] Work Phone: 1(841) 704-698906-10-2025 Progress note [facility] Medical Records Department [address] [place] [address] Progress Note - Cardiology 10/03/2440 MR#: [id number] Acct: [id number] Name: DENIA GONZALEZ Rep #:[id number] : 1955 69 From: Junito Madrid MD PCP: Dr. Yoseph Fall MD Status:AD M IN Location: [place] [address] Subjective Subjective Patient is resting comfortably in [...] as tolerated. Charges/Coding Visit Charges Inpatient E&M: 87796 Subs Hosp L3 10/03/24 0865 Cosigner Signature (if applicable): CC: ~ Signed [facility]06-09-2025 Progress note Author Lynne Schafer [facility] Note Date/Time October 02, 2024 6:52p m [facility] Medical Records Department [address] [place] [address] Progress Note 10/02/24 1220 MR#: [id number] Acct: [id number] Name: DENIA GONZALEZ Rep #:[id number] : 1955 69 From: Lynne Schafer MD PCP: Dr. Yoseph Fall MD Status:AD M IN Location: [place] [address] Subjective Subjective Patient seen and examined. SHe [...] 89.8 H, Lymph % (Auto) 6.1 L, Burt %(Auto) 3.3, Eos % (Auto) 0.0, Baso [...] therapeutic lovenox Charges/Coding Visit Charges Inpatient E&M: 23196 [facility] Hosp 10/02/24 1852 <Electronically signed by Lynne Schafer MD> Lynne Schafer MD Cosigner Signature (if applicable): CC: ~ Signed [facility] Work Phone: 1(366) 274-406006-09-2025 Progress note [facility] Medical Records Department [address] [place] [address] Progress Note 10/02/24 1220 MR#: [id number] Acct: [id number] Name: DENIA GONZALEZ Rep #:[id number] : 1955 69 From: Lynne Schafer MD PCP: Dr. Yoseph Fall MD Status:AD M IN Location: [place] [address] Subjective Subjective Patient seen and examined. SHe [...] 89.8 H, Lymph % (Auto) 6.1 L, Burt %(Auto) 3.3, Eos % (Auto) 0.0, Baso [...] therapeutic lovenox Charges/Coding Visit Charges Inpatient E&M: 51249 [facility] Hosp L3 10/02/24 4824 Lynne Schafer MD Cosigner Signature (if applicable): CC: ~ Signed [facility]06-09-2025 Consult note Author Junito Madrid [facility] Note Date/Time October 02, 2024 10:13 am [facility] Medical Records Department [address] [place] [address] Consultation - Cardiology 10/02/24 1000 MR#: [id number] Acct: [id number] Name: DENIA GONZALEZ Rep #:[id number] : 1955 69 From: Junito Madrid MD PCP: Dr. Yoseph Fall MD Status:AD M IN Location: [place] [id number] Assessment & Plan Assessment/Plan (1) Tachycardia: [...] Applicable: No Charges/Coding Visit Charges Inpatient E&M: 79961 Init Hosp L2 Objective Data Vital Signs: [...] 89.8 H, Lymph % (Auto) 6.1 L, Burt %(Auto) 3.3, Eos % (Auto) 0.0, Baso [...] 89.8 H, Lymph % (Auto) 6.1 L, Burt % (Auto) 3.3, Eos % (Auto) 0.0, [...] applicable): CC: Dr. Yoseph Fall MD~ Signed [facility] Work Phone: 1(528) 471-307506-09-2025 Consult note [facility] Medical Records Department [address] [place] [address] Consultation - Cardiology 10/02/24 1000 MR#: [id number] Acct: [id number] Name: DENIA GONZALEZ Rep #:[id number] : 1955 69 From: Junito Madrid MD PCP: Dr. Yoseph Fall MD Status:AD M IN Location: [place] [address] Assessment & Plan Assessment/Plan (1) Tachycardia: PLAN: [...] Applicable: No Charges/Coding Visit Charges Inpatient E&M: 33794 Init Hosp L2 Objective Data Vital Signs: [...] 89.8 H, Lymph % (Auto) 6.1 L, Burt %(Auto) 3.3, Eos % (Auto) 0.0, Baso [...] 89.8 H, Lymph % (Auto) 6.1 L, Burt % (Auto) 3.3, Eos % (Auto) 0.0, [...] applicable): CC: Dr. Yoseph Fall MD~ Signed [facility]06-08-2025 Progress note Author Dionne Porter [facility] Note Date/Time October 01, 2024 9:42p m [facility] Medical Records Department [address] [facility] [place] [address] Progress Note - Hospitalist 10/01/242140 MR#: [id number] Acct: [id number] Name: DENIA GONZALEZ Rep #:[id number] : 1955 69 From: Dionne Porter MD PCP: Dr. Yoseph Fall MD Status:AD M IN Location: [place] [address] Hospitalist Note Patient with episode tacycardia, rate 160s, went back down to 120s, changing to ipratropium only instead of duonebs, dose with her verapamil now and will assureno active EtOH usage history as prior EtOH abuse. 10/01/242141 <Electronically signed by Dionne Porter MD> Cosigner Signature (if applicable): CC: ~ Signed [facility] Work Phone: 1(359) 667-274506-08-2025 Progress note [facility] Medical Records Department [address] [facility] [place] [address] Progress Note - Hospitalist 10/01/242140 MR#: [id number] Acct: [id number] Name: DENIA GONZALEZ Rep #:[id number] : 1955 69 From: Dionne Porter MD PCP: Dr. Yoseph Fall MD Status:AD M IN Location: [place] [address] Hospitalist Note Patient with episode tacycardia, rate 160s, went back down to 120s, changing to ipratropium only instead of duonebs, dose with her verapamil now and will assureno active EtOH usage history as prior EtOH abuse. 10/01/242141 Cosigner Signature (if applicable): CC: ~ Signed [facility]06-08-2025 Progress note Author Jan Bolanos [facility] Note Date/Time October 01, 2024 10:49 am [facility] Medical Records Department [address] [place] [address] Progress Note - Hospitalist 10/01/24 1043 MR#: [id number] Acct: [id number] Name: DENIA GONZALEZ Rep #:[id number] : 1955 69 From: Jan brennan MD PCP: Dr. Yoseph Fall MD Status:AD M IN Location: [place] [address] Subjective Subjective Feels okay but not quite [...] 89.0 H, Lymph % (Auto) 6.8 L, Burt %(Auto) 3.6, Eos % (Auto) 0.0, Baso [...] DVT: Lovenox Charges/Coding Visit Charges Inpatient E&M: 17911 Subs Hosp L2 10/01/24 9233 <Electronically signed by Jan Bolanos MD> Cosigner Signature (if applicable): CC: ~ Signed [facility] Work Phone: 1(423) 800-106406-08-2025 Progress note [facility] Medical Records Department [address] [place] [address] Progress Note - Hospitalist 10/01/24 1043 MR#: [id number] Acct: [id number] Name: DENIA GONZALEZ Rep #:[id number] : 1955 69 From: Jan brennan MD PCP: Dr. Yoseph Fall MD Status:AD M IN Location: [place] [address] Subjective Subjective Feels okay but not quite [...] 89.0 H, Lymph % (Auto) 6.8 L, Burt %(Auto) 3.6, Eos % (Auto) 0.0, Baso [...] DVT: Lovenox Charges/Coding Visit Charges Inpatient E&M: 43569 Subs Hosp L2 10/01/24 1049 Cosigner Signature (if applicable): CC: ~ Signed [facility]06-07-2025 Progress note Author Jan Bolanos [facility] Note Date/Time September 30, 2024 1:23p m [facility] Medical Records Department [address] [place] [address] Progress Note - Hospitalist 09/30/24 1220 MR#: [id number] Acct: [id number] Name: DENIA GONZALEZ Rep #:[id number] : 1955 69 From: Jan brennan MD PCP: Dr. Yoseph Fall MD Status:AD M IN Location: [place] [address] Subjective Subjective No issues overnight, she still [...] 88.1 H, Lymph % (Auto) 8.0 L, Burt %(Auto) 3.5, Eos % (Auto) 0.0, Baso [...] DVT: Lovenox Charges/Coding Visit Charges Inpatient E&M: 35512 Subs Hosp L2 09/30/24 1323 <Electronically signed by Jan Bolanos MD> Cosigner Signature (if applicable): CC: ~ Signed [facility] Work Phone: [phone]) 209-491006-07-2025 Progress note [facility] Medical Records Department [address] [place] [address] Progress Note - Hospitalist 09/30/24 1220 MR#: [id number] Acct: [id number] Name: DENIA GONZALEZ Rep #:[id number] : 1955 69 From: Jan brennan MD PCP: Dr. Yoseph Fall MD Status:AD M IN Location: [place] [address] Subjective Subjective No issues overnight, she still [...] 88.1 H, Lymph % (Auto) 8.0 L, Burt %(Auto) 3.5, Eos % (Auto) 0.0, Baso % (Auto) 0.0, Absolute Neuts (auto) 6.8, Absolute Lymphs (auto) 0.61 L, Nucleated RBC % 0, Sodium 138, Potassium 4.6, [id number] L, Carbon Dioxide 33.3 H, Anion Gap [...] DVT: Lovenox Charges/Coding Visit Charges Inpatient E&M: 10584 Subs Hosp L2 09/30/24 1326 Cosigner Signature (if applicable): CC: ~ Signed [facility]06-06-[facility] Evaluation note* Diagnosis Onset Date Resolution Status Admit Date Afib acute September 29, 2024 11:36am Anxiety and depression acute [facility] 2024 11:36am Aortic valve stenosis acute Sep 11:36am Tachycardia acute September 29 11:36am COPD with acute exacerbation chronic September 29, 2024 11:36am Non-small cell lung cancer chronic September 29, 2024 11:36am [facility] Work Phone: 1(353) 417-153806-06-2025 Evaluation note* Diagnosis Onset Date Resolution Status Admit Date Anxiety and depression acute [facility] 2024 11:36am Aortic valve stenosis acute Sep 11:36am Tachycardia acute September 29 11:36am Afib chronic September 29, 2024 11:36am COPD with acute exacerbation chronic September 29, 2024 11:36am Non-small cell lung cancer chronic September 29, 2024 11:36am Aortic valve stenosis acute [facility] 2024 12:58pm Afib chronic November 03 12:58pm Benign essential hypertension chroni c November 03, 2024 12:58pm [facility] Work Phone: [phone] 630-302006-06-2025 Evaluation note* Diagnosis Onset Date Resolution Status Admit Date Anxiety and depression acute [facility] 2024 11:36am Aortic valve stenosis acute Sep [...] acute exacerbation chronic December 26, 2024 8:00pm [facility] Work Phone: [phone] Evaluation note* Diagnosis Onset Date Resolution Status [...] acute exacerbation chronic December 26, 2024 8:00pm [facility] Work Phone: 1(187) 593-688406-06-2025 Evaluation note* Diagnosis Onset Date Resolution Status [...] Respiratory insufficiency inactive December 26, 2024 8:00pm [facility] Work Phone: 1(258) 360-427206-06-2025 Evaluation note* Diagnosis Onset Date Resolution Status [...] 2025 10:04am Chronic anemia chronic January 10:04am [facility] Work Phone: [phone] Evaluation note* Diagnosis Onset Date Resolution Status [...] 025 10:04am Chronic anemia chronic January 10:04am [facility] Work Phone: 1(433) 571-893906-06-2025 Discharge summary Author Riley Jeff [facility] Note Date/Time September 29, 2024 4:33a [facility] Medical Records Department [address] [place] [address] Emergency Department Summary 09/29/24 MR#: [id number] Acct: [id number] Name: DENIA GONZALEZ Rep #:[id number] : 1955 69 From: Riley Jeff DO [...] Secondary to that she presents for evaluation [facility] Medical History RLS (restless legs [...] 78.5 H Lymph % (Auto) 13.2 L Burt % (Auto) 6.9 Eos % (Auto) 0.7 [...] of an acute cardiopulmonary abnormality. Reading Location: [facility] Chest x-ray as interpreted by the emergency medicine physician reveals no acute infiltrate pneumothorax or pleural effusion Management Discussion w/another healthcare provider: Hospitalist Discharge Plan Dx/Rx/DC Orders Clinical Impression: COPD with acute exacerbation, Benign essential hypertension, Anxiety and depression Disposition Disposition: [facility] What to do if you have Problems For any increased pain, shortness of breath, bleeding, nausea or vomiting, chestpain, or any unexpected problems, contact your Primary Care Provider. Call [facility] ([phone]) or report to the closest Emergency Room. Call 911 if necessary. 09/29/24 0433 <Electronically signed by Riley Jeff DO> Cosigner Signature (if applicable): CC: Dr. Yoseph Fall MD ~ Signed [facility] Work Phone: 1(373) 928-723706-06-2025 History and physical note Author Dionne Porter [facility] Note Date/Time September 29, 2024 4:32a m [facility] Medical Records Department [address] [place] [address] H&P Exam - Hospitalist 09/29/24 0403 MR#: [id number] Acct: [id number] Name: DENIA GONZALEZ Rep #:[id number] : 1955 69 From: Dionne Porter MD [...] allergic rhinitis, HTN who presents to the [facility] ED on 09/29/2024 with history [...] 78.5 H, Lymph % (Auto) 13.2 L, Burt % (Auto) 6.9, Eos % (Auto) 0.7, [...] of an acute cardiopulmonary abnormality. Reading Location: [id number] Assessment & Plan Assessment/Plan (1) COPD with acute exacerbation: PLAN: Plan The patient is a 69 y/o F w/ PMHx: GERD, RLS, Anxiety and Depression, Former tobacco use, Former EtOH Abuse, Hx Non-small cell lung cancer status post right lung lobectomy remotely 2003, COPD/Asthma with Chronic Hypoxic Respiratory Failure with allergic rhinitis, HTN who presents to the [facility] ED on 09/29/2024 with history [...] Code status. Charges/Coding Visit Charges Inpatient E&M: 79572 Init Hosp L3 09/29/24 0432 <Electronically signed by Dionne Porter MD> Cosigner Signature (if applicable): CC: Dr. Dionne Porter MD; Dr. Yoseph Fall MD~ Signed [facility] Work Phone: 1(576) 357-809606-06-2025 Discharge summary [facility] Medical Records Department [address] [place] [address] Emergency Department Summary 09/29/24 MR#: [id number] Acct: [id number] Name: DENIA GONZALEZ Rep #:[id number] : 1955 69 From: Riley Jeff DO [...] Secondary to that she presents for evaluation [facility] Medical History RLS (restless legs [...] 78.5 H Lymph % (Auto) 13.2 L Burt % (Auto) 6.9 Eos % (Auto) 0.7 [...] of an acute cardiopulmonary abnormality. Reading Location: [facility] Chest x-ray as interpreted by the emergency medicine physician reveals no acute infiltrate pneumothorax or pleural effusion Management Discussion w/another healthcare provider: Hospitalist Discharge Plan Dx/Rx/DC Orders Clinical Impression: COPD with acute exacerbation, Benign essential hypertension, Anxiety and depression Disposition Disposition: [facility] What to do if you have Problems For any increased pain, shortness of breath, bleeding, nausea or vomiting, chestpain, or any unexpected problems, contact your Primary Care Provider. Call [facility] ([phone]) or report tothe closest Emergency Room. Call 911 if necessary. 09/29/24 0433 Cosigner Signature (if applicable): CC: Dr. Yoseph Fall MD ~ Signed [facility]06-06-2025 History and physical note [facility] Medical Records Department [address] [place] [address] H&P Exam - Hospitalist 09/29/24 0403 MR#: [id number] Acct: [id number] Name: DENIA GONZALEZ Rep #:[id number] : 1955 69 From: Dionne Porter MD [...] allergic rhinitis, HTN who presents to the [facility] ED on 09/29/2024 with history [...] 78.5 H, Lymph % (Auto) 13.2 L, Burt % (Auto) 6.9, Eos % (Auto) 0.7, [...] of an acute cardiopulmonary abnormality. Reading Location: [id number] Assessment & Plan Assessment/Plan (1) COPD with acute exacerbation: PLAN: Plan The patient is a 69 y/o F w/ PMHx: GERD, RLS, Anxiety and Depression, Former tobacco use, Former EtOH Abuse, Hx Non-small cell lung cancer status post right lung lobectomy remotely 2003, COPD/Asthma with Chronic Hypoxic Respiratory Failure with allergic rhinitis, HTN who presents to the [facility] ED on 09/29/2024 with history [...] Code status. Charges/Coding Visit Charges Inpatient E&M: 59907 Init Hosp L3 09/29/24 0432 Cosigner Signature (if applicable): CC: Dr. Dionne Porter MD; Dr. Yoseph Fall MD~ Signed [facility]06-06-2025 Radiology Diagnostic study note [facility] Imaging Services [address] [place] [address] Chest PA and Lateral MR#: [id number] Acct: [id number] Name: DENIA GONZALEZ Rep #: [id number] : 1955 F 69 From: Yaquelin Lindquist MD PCP: Dr. Yoseph Fall MD Status: RE G ER Study:Chest PA and Lateral Date of Exam: 09/29/24 Exam# [id number] Ordering Dr: Silvia Jeff DO PROCEDURE: CHEST [...] Yoseph Fall MD; Riley Jeff DO ~ Paleobotanist: Signed [facility]06-05-2025 Telephone encounter Note* Telephone Encounter - Yoseph Fall MD - 09/28/2024 4:57 PM EDT OK to refill as ordered Yoseph Fall MD [facility]06-05-2025 Miscellaneous Notes* Telephone Encounter - Yoseph [...] 28, 2024 4:34 PM documented in [facility] encounterOhio[facility] Telephone encounter Note * Telephone Encounter [...] Bliss RN September 28, 2024 4:34 PM [facility]2025 Telephone encounter Note* Telephone Encounter - [...] to 15 minutes Nelson Robert APRN.CNP [facility]2025 Miscellaneous Notes* Telephone Encounter - Nelson [...] 29, 2024 10:54 AM documented in [facility] encounterOhio[facility]20[facility] Telephone encounter Note * Telephone Encounter [...] Sarah August 29, 2024 10:54 AM [facility]04-22-2025 Telephone encounter Note* Telephone Encounter - [...] to 30 days. Authorizing Provider: NELSON ROBERT APRN.SHIPPING CHECKER [facility]04-22-2025 Miscellaneous Notes* Telephone Encounter - Nelson [...] 15, 2024 10:53 AM documented in this encounterOhio[facility]04-[facility]-2025 Telephone encounter Note * Telephone Encounter [...] LPN August 15, 2024 10:53 AM [facility]03-31-2025 Telephone encounter Note* Telephone Encounter - Magalie Anguiano RN - 07/24/2024 6:11 PM EDT Pt significant other Mike called and is notified of providers results and instructions. He voices understanding. Magalie Anguiano RN [facility]03-31-2025 Miscellaneous Notes* Telephone Encounter - Magalie [...] rash. He states the Pt has a instructor product inspection that come in tomorrow and she could try and help the Pt with a VV. He states she usually does phone visits. I told him the provider may need to see the rash. Pt was wanting the provider to order an antibiotic for it. Mike states he knows a cream could probably be called in. Please call and advise Pt. documented in this encounterOhio[facility]03-31-2025 Telephone encounter Note * Telephone Encounter - Yoseph Fall MD - 07/24/2024 5:08 PM EDT She may try taking 40 mg of prednisone (she has 10 mg tablets at home) for 3 days and see if this clears up the rash; sounds like an allergic reaction. Yoseph Fall MD [facility]03-31-2025 Telephone encounter Note* Telephone Encounter - [...] rash. He states the Pt has a instructor product inspection that come in tomorrow and she could try and help the Pt with a VV. He states she usually does phone visits. I told him the provider may need to see the rash. Pt was wanting the provider to order an antibiotic for it. Mike states he knows a cream could probably be called in. Please call and advise Pt. [facility]03-19-2025 Telephone encounter Note* Telephone Encounter - Sukhi Marrero RN - 07/12/2024 2:47 PM EDT Jneni with [facility] Medical calls to request chart notes to support patients need for continued oxygen. Most recent visits have all been distant health. Jenni requests most recent visit be faxed. Faxed to [phone] per request. Sukhi Marrero RN [facility]03-19-2025 Miscellaneous Notes* Telephone Encounter - Sukhi Marrero RN - 07/12/2024 2:47 PM EDT Jenni with [facility] Medical calls to request chart notes to support patients need for continued oxygen. Most recent visits have all been distant health. Jenni requests most recent visit be faxed. Faxed to [phone] per request. Sukhi Marrero RN documented in this encounterOhio[facility]03-13-2025 History of Present illness Narrative* Yoseph [...] Either the patient or their legal medical customer service representative has been informed of the risks and benefits of -- and alternatives to -- treatment through a remote evaluation andconsents to proceed with the evaluation remotely. Completing tele-health visit for routine follow up. Pt reports that she has a lady coming from [facility] tomorrow and asking what shots she [...] at 2.5-3 L. Pain: Chronic back; taking Bliss 5-325 mg 1 pill BID as needed. [...] lung, unspecified site (HCC) 04/26/2003 Lung cancer NE (myocardial infarction) ([facility]) 10-10 taken to [facility] "heart stopped" Obstructive chronic bronchitis with exacerbation ([facility]) COPD Other abnormal Papanicolaou smear [...] as directed. Dx: COPD J44.9 Nebulizer [facility] Mask and supplies as needed PULSE OXIMETER [facility] Use as directed to check oxygen saturation level ammonium lactate (AMLACTIN) 12 % lotion Apply 1 application to affected area as needed for Dry Skin. losartan (COZAAR) 50 mg tablet Take 0.5 tablets by mouth once daily. OXYGEN, HOME THERAPY, 2.5 L/min by Nasal Cannula route continuous. Use as directred Disposable Gloves (DISPOSABLE LATEX-FREE GLOVES) [facility] 1 Box once [...] Nothing since 03/2012. Drug use: No EXAM: [facility] 02/27/2005 Phone visit Health Maintenance List BP [...] Past Histories independently gathered by the clinical ict customer support officer and the remaining scribed note accurately describes my personal service to the patient. 11-20 minutes of time spent on phone call Yoseph Fall MD The documentation for this note was completed by Martha Baca MA acting as scribe for Yoseph Fall MD. July 06, 2024 2:02 PM. Martha Baca MA documented in this encounterOhiohealth [facility]03-13-2025 NoteHNO ID: [id number] Author: YOSEPH FALL MD Service: ? Author [...] Either the patient or their legal medical customer service representative has been informed of the risks and benefits of -- and alternatives to -- treatment through a remote evaluation and consents to proceed with the evaluation remotely. Completing tele-health visit for routine follow up. Pt reports that she has a lady coming from [facility] tomorrow and asking what shots she [...] at 2.5-3 L. Pain: Chronic back; taking Bliss 5-325 mg 1 pill BID as needed. [...] lung, unspecified site (HCC) 04/26/2003 Lung cancer NE (myocardial infarction) ([facility]) 10-10 taken to [facility] "heart stopped" Obstructive chronic bronchitis with exacerbation ([facility]) COPD Other abnormal Papanicolaou smear [...] HISTORY Procedure Laterality Date [facility] RPR ELTRD EXC 2003 Dr. Danis [...] muscle spasm. montelukast (SINGULAIR) (more content not included)...[facility] 06-22-2024 Telephone encounter Note* Telephone Encounter [...] LPN June 22, 2024 10:53 AM [facility]02-27-2025 Miscellaneous Notes* Telephone Encounter - Brynn [...] 22, 2024 10:53 AM documented in this encounterOhiohealth [facility]02-24-2025 Telephone encounter Note * Telephone Encounter - Yoseph Fall MD - 06/19/2024 12:48 PM EST OK to refill as ordered Yoseph Fall MD [facility]02-24-2025 Miscellaneous Notes* Telephone Encounter - Yoseph [...] 19, 2024 9:31 AM documented in this encounterOhiohealth [facility]02-24-2025 Telephone encounter Note * Telephone Encounter [...] LPN June 19, 2024 9:31 AM [facility]02-17-2025 Telephone encounter Note* Telephone Encounter - Martha Baca MA - 06/12/2024 3:39 PM EST Form completed and faxed back to information below. Martha Baca MA [facility]02-17-2025 Miscellaneous Notes* Telephone Encounter - Martha Baca MA - 06/12/2024 3:39 PM EST Form completed and faxed back to information below. Martha Baca MA * Telephone Encounter - Martha Baca MA - 06/12/2024 12:44 PM EST Type of form: Medical Necessity for incontinence supplies. Form received via fax When form is completed, Fax form to [phone] Form has been forwarded to Physician Desk: Dr. Eufemia Baca MA documented in this encounterOhiohealth [facility]02-17-2025 Telephone encounter Note * Telephone Encounter - Martha Baca MA - 06/12/2024 12:44 PM EST Type of form: Medical Necessity for incontinence supplies. Form received via fax When form is completed, Fax form to [phone] Form has been forwarded to Physician Desk: Dr. Eufemia Baca MA [facility]02-07-2025 Telephone encounter Note* Telephone Encounter - Ban VillafanaLAURIE - 06/02/2024 8:11 AM EST Images from the original note were not included. Electronic PA rec'd and completed for cyclobenzaprine. This was denied. Note from payer: CaseId:[id number];Status:Denied;Review Type:Prior Auth;Appeal Information: Attention:ATTN: MEDICARE CLINICAL APPEALS [employer] [address] [address],[place], [place],[address] WebAddress:[email or web address]; Important - Please read the below note [...] for a decision on the appeal.; Payer: [employer] HOME DELIVERY [phone] Electronic appeal: Supported View History Notes Time [...] to its destination. To be filled at: [facility] [address] [place] [address] - [address] - [phone] [facility]02-07-2025 Miscellaneous Notes* Telephone Encounter - Ban Villafana LPN - 06/02/2024 8:11 AM EST Images from the original note were not included. Electronic PA rec'd and completed for cyclobenzaprine. This was denied. Note from payer: CaseId:[id number];Status:Denied;Review Type:Prior Auth;Appeal Information: Attention:ATTN: MEDICARE CLINICAL APPEALS [employer] [address] [address],[place], [place],[address] WebAddress:[email or web address]; Important - Please read the below note [...] for a decision on the appeal.; Payer: [employer] HOME DELIVERY [phone] Electronic appeal: Supported View History Notes Time [...] to its destination. To be filled at: [facility] [address] [place] [id number] [address] - [phone] documented in this encounterOhiohealth [facility]ide [facility]25 Telephone encounter Note * Telephone Encounter - Yoseph Fall MD - 06/01/2024 3:18 PM EST OK to refill as ordered Yoseph Fall MD [facility]02-06-2025 Miscellaneous Notes* Telephone Encounter - Yoseph [...] 01, 2024 2:45 PM documented in this encounterOhiohealth Riverside [facility]02-06-2025 Telephone encounter Note * Telephone Encounter [...] Gurrola RN June 01, 2024 2:45 PM [facility]01-21-2025 Telephone encounter Note* Telephone Encounter - Yoseph Fall MD - 05/16/2024 10:33 AM EST OK to refill as ordered Yoseph Fall MD [facility]01-21-2025 Miscellaneous Notes* Telephone Encounter - Yoseph [...] 16, 2024 10:31 AM documented in this encounterOhiohealth [facility]ide [facility]01-21-2025 Telephone encounter Note * Telephone Encounter [...] RN May 16, 2024 10:31 AM [facility]01-21-2025 NotePatient Outreach (FAMPWS) DENIA GONZALEZ ([id number]) 1955 F Date Time Provider Department 05/16/24 YOSEPH FALL FAMPWS During your visit today, we recorded the following information about you: Allergies As of Date: 05/16/2024 (No Known Allergies) Date Reviewed: 04/07/2024 Reviewed by: Martha Baca MA - Fully Assessed Visit Diagnosis:Encounter for screening mammogram for breast cancer [Z12.31] Order(s):MICKIE SCREENING W RASHAUN [[id number]] Order #: [id number] FUTURE Prescriptions as of 06/16/2024 - cyclobenzaprine [...] directed. Dx: COPD J44.9 - Nebulizer Accessories [facility] Mask and supplies as needed - PULSE OXIMETER [facility] Use as directed to check oxygen saturation level - ammonium lactate (AMLACTIN) 12 % lotion Apply 1 application to affected area as needed for Dry Skin. - losartan (COZAAR) 50 mg tablet Take 0.5 tablets by mouth once daily. - OXYGEN, HOME THERAPY, 2.5 L/min by Nasal Cannula route continuous. Use as directred - Disposable Gloves (DISPOSABLE LATEX-FREE GLOVES) [facility] 1 Box once [...] chronic bronchitis with exacerbatio* Encounter Status:Closed by [facility], [place] [employer] on 06/16/24[facility] 04-10-2024 Telephone encounter Note* Telephone Encounter - Nelson Robert APRN.CNP - 04/10/2024 12:37 PM EST The following approved medication requests have been transmitted electronically. Requested Prescriptions Pending Prescriptions Disp Refills tiotropium (SPIRIVA) 18 mcg inhalation capsule 30 capsule 11 Sig: Inhale 1 capsule as instructed once daily. Nelson Robert APRN.CNP [facility]12-16-2024 Miscellaneous Notes* Telephone Encounter - Nelson [...] 10, 2024 12:21 PM documented in this encounterOhiohealth Riverside Methodist Hospital12-16-2024 Telephone encounter Note * Telephone Encounter [...] RN April 10, 2024 12:21 PM [facility]12-13-2024 History of Present illness Narrative* Yoseph [...] Either the patient or their legal medical customer service representative has been informed of the risks and benefits of -- and alternatives to -- treatment through a remote evaluation andconsents to proceed with the evaluation remotely. Tobacco - penitentiary use of cigarettes, but is working very hard on cutting down. Notes increased usage due to stress. Dog recently , grand daughter in hospital. GI/Uro - Denies any stomach, bowel or urinary issues. GERD - Symptoms stable with use of Prilosec 20 mg once daily. Pain - Chronic back pain that is currently being treated with Bliss 5-325 mg 1 tab po bid prn. [...] beagle of 14 years.Also notes granddaughter in [facility]. Trying to learn to live her anxiety [...] neoplasm of bronchus and lung, unspecified site ([facility]) 04/26/2003 Lung cancer [place] (myocardial infarction) ([facility]) 10-10 taken to [facility] "heart stopped" Obstructive chronic bronchitis with exacerbation ([facility]) COPD Other abnormal Papanicolaou smear [...] as directed. Dx: COPD J44.9 [facility] Mask and supplies as needed PULSE OXIMETER [facility] Use as directed to check oxygen saturation level ammonium lactate (AMLACTIN) 12 % lotion Apply 1 application to affected area as needed for Dry Skin. losartan (COZAAR) 50 mg tablet Take 0.5 tablets by mouth once daily. OXYGEN, HOME THERAPY, 2.5 L/min by Nasal Cannula route continuous. Use as directred Disposable Gloves (DISPOSABLE LATEX-FREE GLOVES) [facility] 1 Box once [...] Past Histories independently gathered by the clinical ict customer support officer and the remaining scribed note accurately describes my personal service to the patient. 11-20 minutes of time spent on phone call Yoseph Fall MD The documentation for this note was completed by Martha Baca MA acting as scribe for Yoseph Fall MD. April 07, 2024 8:48 AM. Martha Baca MA documented in this encounterOhiohealth Riverside [facility] Hospital12-13-2024 NoteHNO ID: [id number] Author: YOSEPH FALL MD Service: ? Author [...] Either the patient or their legal medical customer service representative has been informed of the risks and benefits of -- and alternatives to -- treatment through a remote evaluation and consents to proceed with the evaluation remotely. 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 Notes increased usage due to stress. Dog recently , grand daughter in hospital. GI/Uro - Denies any stomach, bowel or urinary issues. GERD - Symptoms stable with use of Prilosec 20 mg once daily. Pain - Chronic back pain that is currently being treated with Bliss 5-325 mg 1 tab po bid prn. [...] of 14 years. Also notes granddaughter in [facility]. Trying to learn to live her anxiety [...] lung, unspecified site (HCC) 04/26/2003 Lung cancer [place] (myocardial infarction) (HCC) 10-10 taken to [facility] "heart stopped" Obstructive chronic bronchitis with exacerbation [...] File Prior to Visit (more content not included)...[facility]11-27-2024 Telephone encounter Note* Telephone Encounter - Vickie Niño LPN - 03/22/2024 9:03 AM EST left message to notify patient that med has been sent into pharmacy. Vickie Niño LPN [facility]11-27-2024 Miscellaneous Notes* Telephone Encounter - Vickie [...] advise, Judy Bliss RN documented in this encounterOhiohealth Riverside Methodist Hospital11-27-2024 Telephone encounter Note * Telephone Encounter - Iman Person APRN.CNP - 03/22/2024 8:51 AM EST The following approved medication requests have been transmitted electronically. Requested Prescriptions Signed Prescriptions Disp Refills amoxicillin (AMOXIL) 875 mg tablet 20 tablet 0 Sig: Take 1 tablet by mouth two times a day for 10 days. Authorizing Provider: IMAN PERSON APRN.CNP [facility]11-26-2024 Telephone encounter Note* Telephone Encounter - [...] Please review and advise, Judy Bliss RN [facility]11-25-2024 Telephone encounter Note* Telephone Encounter - Neslon Robert APRN.CNP - 03/20/2024 12:52 PM EST [...] 30 days. Authorizing Provider: NELSON ROBERT APRN.CNP [facility]11-25-2024 Miscellaneous Notes* Telephone Encounter - Nelson Robert [...] 20, 2024 12:49 PM documented in this encounterOhiohealth Riverside [facility] Hospital11-25-2024 Telephone encounter Note * Telephone Encounter [...] Marrero RN March 20, 2024 12:49 PM [facility]11-08-2024 Telephone encounter Note* Telephone Encounter - Nelson Robert APRN.CNP - 03/03/2024 11:53 AM EST The following approved medication requests have been transmitted electronically. Requested Prescriptions Pending Prescriptions Disp Refills predniSONE (DELTASONE) 10 mg tablet 30 tablet 5 Sig: Take 1.5 tablets by mouth every other day. Nelson Robert APRN.CNP [facility]11-08-2024 Miscellaneous Notes* Telephone Encounter - Nelson [...] last [facility] the [facility] Does the patient have a future office visit with this provider/department: No Visit date not found Requested Prescriptions Pending Prescriptions Disp Refills predniSONE (DELTASONE) 10 mg tablet 30 tablet 5 Sig: Take 1.5 tablets by mouth every other day. Judy Bliss RN March 03, 2024 11:23 AM documented in this encounterOhiohealth Riverside [facility] Hospital11-08-2024 Telephone encounter Note * Telephone Encounter [...] last office visit in the [facility] Does the patient have a future office visit with this provider/department: No Visit date not found Requested Prescriptions Pending Prescriptions Disp Refills predniSONE (DELTASONE) 10 mg tablet 30 tablet 5 Sig: Take 1.5 tablets by mouth every other day. Judy Bliss RN March 03, 2024 11:23 AM [facility]10-21-2024 Telephone encounter Note* Telephone Encounter - [...] minutes Authorizing Provider: NELSON ROBERT APRN.CNP [facility]10-21-2024 Miscellaneous Notes* Telephone Encounter - Nelson [...] 14, 2024 11:28 AM documented in this encounterOhiohealth Riverside [facility] Hospital10-21-2024 Telephone encounter Note * Telephone Encounter [...] LPN February 14, 2024 11:28 AM [facility]10-11-2024 Telephone encounter Note* Telephone Encounter - Lauren Duarte MA - 02/04/2024 8:25 AM EDT Pt informed, verbalized understanding. Lauren Duarte MA [facility]10-11-2024 Miscellaneous Notes* Telephone Encounter - Lauren [...] advise, Judy Bliss RN documented in this encounterOhiohealth Riverside Methodist Hospital10-11-2024 Telephone encounter Note * Telephone Encounter - Yoseph Fall MD - 02/04/2024 8:16 AM EDT OK for amoxicillin as ordered. If she does not improve over the weekend she would need to be seen. Yoseph Fall MD [facility]10-10-2024 Telephone encounter Note* Telephone Encounter - [...] review and advise, Judy Bliss RN [facility]10-10-2024 Telephone encounter Note* Telephone Encounter - [...] for evaluation. Patient and daughter agreeable. [facility]10-10-2024 Miscellaneous Notes* Telephone Encounter - Martínez [...] Patient and daughter agreeable. documented in this encounterOhiohealth Riverside Methodist Hospital09-24-2024 Telephone encounter Note * Telephone Encounter [...] days. Authorizing Provider: NELSON ROBERT APRN.CNP [facility]09-24-2024 Miscellaneous Notes* Telephone Encounter - Nelson [...] 18, 2024 9:25 AM documented in this encounterOhiohealth Riverside [facility] Hospital09-24-2024 Telephone encounter Note * Telephone Encounter [...] RN January 18, 2024 9:25 AM [facility]08-30-2024 Telephone encounter Note* Telephone Encounter - Yoseph Fall MD - 12/24/2023 9:48 AM EDT OK to refill as ordered Yoseph Fall MD [facility]08-30-2024 Miscellaneous Notes* Telephone Encounter - Yoseph [...] 24, 2023 9:26 AM documented in this encounterOhiohealth Riverside Methodist Hospital08-30-2024 Telephone encounter Note * Telephone Encounter [...] Carrillo December 24, 2023 9:26 AM [facility] Work Phone: [phone]) 631-228608-05-2024 History of Present illness Narrative* Yoseph Fall [...] Either the patient or their legal medical customer service representative has been informed of the risks [...] Pain: Chronic pain; is being weaned off Bliss 5-325 mg down to#32/month, taking 1 pill BID prn. Also uses Flexeril 10 mg BID prn. Worried pain will not be controlled on anything less than 2 norco perday. At times pain gets bad, having to use Tylenol. Wishes her Bliss would be increased. GERRY/Depression: Stable, still has [...] lung, unspecified site (HCC) 04/26/2003 Lung cancer [place] (myocardial infarction) (HCC) 10-10 taken to [facility] "heart stopped" Obstructive chronic bronchitis with exacerbation [...] as directed. Dx: COPD J44.9 Nebulizer [facility] Mask and supplies as needed PULSE OXIMETER [facility] Use as directed to check oxygen saturation level ammonium lactate (AMLACTIN) 12 % lotion Apply 1 application to affected area as needed for Dry Skin. losartan (COZAAR) 50 mg tablet Take 0.5 tablets by mouth once daily. OXYGEN, HOME THERAPY, 2.5 L/min by Nasal Cannula route continuous. Use as directred Disposable Gloves (DISPOSABLE LATEX-FREE GLOVES) [facility] 1 Box once [...] call Yoseph Fall MD documented in this encounterOhiohealth Riverside [facility] Hospital07-23-2024 Telephone encounter Note * Telephone Encounter - Yoseph Fall MD - 11/16/2023 1:32 PM EDT OK to refill as ordered Yoseph Fall MD [facility]07-23-2024 Miscellaneous Notes* Telephone Encounter - Yoseph [...] 16, 2023 12:02 PM documented in this encounterOhiohealth Riverside Methodist Hospital07-23-2024 Telephone encounter Note * Telephone Encounter [...] RN November 16, 2023 12:02 PM [facility]07-15-2024 Telephone encounter Note* Telephone Encounter - [...] drug. This restriction has been approved by [facility]. This restriction only applies to patients greater [...] this decision on the coverage criteria for: [address] [place] Standard MEDD Prior Authorization Policy - HIGH RISK MEDICATIONS - CYCLOBENZAPRINE [facility]07-15-2024 Miscellaneous Notes* Telephone Encounter - Ban [...] drug. This restriction has been approved by [facility]. This restriction only applies to patients greater [...] this decision on the coverage criteria for: [address] [place] Standard MEDD Prior Authorization Policy - HIGH RISK MEDICATIONS - CYCLOBENZAPRINE documented in this encounterOhiohealth Riverside [facility] Hospital07-12-2024 Telephone encounter Note * Telephone Encounter - Iman Person APRN.CNP - 11/05/2023 12:07 PM EDT The following approved medication requests have been transmitted electronically. Requested Prescriptions Pending Prescriptions Disp Refills cyclobenzaprine (FLEXERIL) 10 mg tablet 60 tablet 0 Sig: Take 1 tablet by mouth two times a day as needed for muscle spasm. Iman Person APRN.AUSTIN [facility]07-12-2024 Miscellaneous Notes* Telephone Encounter - Iman [...] 05, 2023 11:51 AM documented in this encounterOhiohealth Riverside Methodist Hospital07-12-2024 Telephone encounter Note * Telephone Encounter [...] LPN November 05, 2023 11:51 AM [facility]06-28-2024 Telephone encounter Note* Telephone Encounter - Brynn Watson LPN - 10/22/2023 2:21 PM EDT Phoned patient and went over notes from Dr Fall with understanding. Aware rx sent to pharmacy. [facility]06-28-2024 Miscellaneous Notes* Telephone Encounter - Brynn [...] Notify pt with providers decision. [facility]ses [facility]. Naima Haines MA * Telephone Encounter [...] with cough. Please advise. documented in this encounterOhiohealth Riverside Methodist Hospital06-28-2024 Telephone encounter Note * Telephone Encounter - Yoseph Fall MD - 10/22/2023 2:14 PM EDT OK for another Zpak as ordered Yoseph Fall MD [facility]06-28-2024 Telephone encounter Note* Telephone Encounter - Naima Haines MA - 10/22/2023 1:09 PM EDT No fevers. She is coughing a little bit. The congestion has mostly cleared. She did get some improvement with the zpak she was given but doesn't feel that the infection is completely resolved. Please advise. Notify pt with providers decision. [facility]. Naima Haines MA [facility]06-28-2024 Telephone encounter Note* Telephone Encounter - Naima Haines MA - 10/22/2023 11:54 AM EDT Tried to reach pt, line picks up, can hear back ground noise but no one says anything. Will try again later. Naima Haines MA [facility]06-28-2024 Telephone encounter Note* Telephone Encounter - Yoseph Fall MD - 10/22/2023 11:47 AM EDT Did she get any better with the Zpak she was given in the ER? If so I would consider refill of that. If it did not help would use a different antibiotic. Yoseph Fall MD [facility]06-28-2024 Telephone encounter Note* Telephone Encounter - Naima Haines MA - 10/22/2023 10:26 AM EDT ER report attached. Scan on 10/18/2023 6:02 AM by Provider, MARY Howe: Consultation - Emergency Medicine [facility]06-28-2024 Telephone encounter Note* Telephone Encounter - Shira Velez - 10/22/2023 10:18 AM EDT Pt has requested that an antibiotic is called in for her. States she was just seen in the EmergencyRoom last week, however; is still having a discolored mucus with cough. Please advise. [facility]06-24-2024 Miscellaneous Notes* Telephone Encounter - Yoseph [...] 18, 2023 9:49 AM documented in this encounterOhiohealth Riverside Methodist Hospital06-24-2024 Telephone encounter Note * Telephone Encounter - Yoseph Fall MD - 10/18/2023 12:10 PM EDT OK to refill as ordered Yoseph Fall MD [facility]06-24-2024 Telephone encounter Note* Telephone Encounter - [...] RN October 18, 2023 9:49 AM [facility]06-07-2024 Telephone encounter Note* Telephone Encounter - Naima Haines MA - 10/01/2023 1:48 PM EDT The following approved medication requests have been transmitted electronically. Requested Prescriptions Signed Prescriptions Disp Refills tiZANidine (ZANAFLEX) 4 mg tablet 90 tablet 5 Sig: Take 1 tablet by mouth every 8 hours as needed (muscle spasms). Authorizing Provider: YOSEPH FALL MA [facility]06-07-2024 Miscellaneous Notes* Telephone Encounter - Naima [...] Marrero RN - 10/01/2023 11:53 AM EDT Eywicq[facility]-U[facility] calls to ask if provider would send in a different prescription than flexeril d/t having to pay for medication. Recommended contacting insurance to see what medication is covered and it was requested to just send something in as they can never get a hold of anyone at the insurance company. Pharmacy is [facility] Marrero RN documented in this encounterOhiohealth Riverside Methodist Hospital06-07-2024 Telephone encounter Note * Telephone Encounter - Yoseph Fall MD - 10/01/2023 1:29 PM EDT OK for zanaflex as ordered Yoseph Fall MD [facility]06-07-2024 Telephone encounter Note* Telephone Encounter - Sukhi Marrero RN - 10/01/2023 11:53 AM EDT [facility] calls to ask if provider would send in a different prescription than flexeril d/t having to pay for medication. Recommended contacting insurance to see what medication is covered and it was requested to just send something in as they can never get a hold of anyone at the insurance company. Pharmacy is [facility] Marre[facility] RN [facility]05-29-2024 Telephone encounter Note* Telephone Encounter - [...] to 15 minutes Nelson Robert APRN.CNP [facility]05-29-2024 Miscellaneous Notes* Telephone Encounter - Nelson [...] Thank you. Louisa Nobles. documented in this encounterOhiohealth Riverside Methodist Hospital05-29-2024 Telephone encounter Note * Telephone Encounter [...] Please advise. Thank you. Louisa Nobles. [facility]05-23-2024 Telephone encounter Note* Telephone Encounter - Yoseph Fall MD - 09/16/2023 8:11 AM EDT OK to refill as ordered Yoseph Fall MD [facility]05-23-2024 Miscellaneous Notes* Telephone Encounter - Yoseph [...] Thank you. Louisa Nobles. documented in this encounterOhiohealth Riverside [facility] Hospital05-22-2024 Telephone encounter Note * Telephone Encounter - Iman Person APRN.CNP - 09/15/2023 7:09 PM EDT The following approved medication requests have been transmitted electronically. Requested Prescriptions Pending Prescriptions Disp Refills fluticasone (FLONASE) 50 mcg/actuation nasal spray 48 g 11 Sig: use 2 sprays in each nostril daily. Rinse mouth after use Iman Person APRN.CNP [facility]05-22-2024 Miscellaneous Notes* Telephone Encounter - Iman [...] you. Essie Medina RN. documented in this encounterOhiohealth Riverside Methodist Hospital05-22-2024 Telephone encounter Note * Telephone Encounter [...] Please advise. Thank you. Louisa Nobles. [facility]05-22-2024 Telephone encounter Note* Telephone Encounter - [...] Please advise. Thank you. Essie Medina RN. [facility]04-29-2024 History of Present illness Narrative* Yoseph [...] Either the patient or their legal medical customer service representative has been informed of the risks [...] daily. Pain: uses Flexeril 10 mg daily, Bliss 5-325 mg 1 pill BID prn, taking [...] lung, unspecified site (HCC) 04/26/2003 Lung cancer [place] (myocardial infarction) (HCC) 10-10 taken to [facility] "heart stopped" Obstructive chronic bronchitis with exacerbation [...] as directed. Dx: COPD J44.9 Nebulizer Accessories [facility] Mask and supplies as needed rOPINIRole (REQUIP) 0.25 mg tablet Take 1 tablet by mouth daily at bedtime. PULSE OXIMETER [facility] Use as directed to check oxygen [...] as directred Disposable Gloves (DISPOSABLE LATEX-FREE GLOVES) [facility] 1 Box once [...] Past Histories independently gathered by the clinical ict customer support officer and the remaining scribed note accurately describes my personal service to the patient. 11-20 minutes of time spent on phone call Yoseph Fall MD The documentation for this note was completed by Naima Haines MA acting as scribe for Yoseph Fall MD. August 23, 2023 2:19 PM. Naima Haines MA documented in this encounterOhiohealth Riverside [facility] Hospital04-02-2024 Miscellaneous Notes* Telephone Encounter - Yoseph [...] care: 08/23/2023 Please advise. Thank you. Brynn Watosn LPN. documented in this encounterOhiohealth Riverside [facility] Hospital04-01-2024 History of Present illness Narrative* oYseph Fall MD - 07/26/2023 7:20 PM EDT [...] Either the patient or their legal medical customer service representative has been informed of the risks [...] for hospital follow up. Pt admitted into [facility] on 07/20/23 and discharged on 07/22/23. [...] days. Nicorette 2 mg gum, states her Vofdultf-md-qkl was picking this up today. SUMMARY: -Pt discharged from [facility] on 07/22/23. Pt admitted on 07/20/23. [...] anxiety, GERD and OA who presents to [facility] ER complaining of shortness of [...] acute exacerbation of COPD withclinical evidence of ujomt-cv-ishcfcn hypoxic respiratory insufficiency likely due to recent [...] enlargement Borderline ECG Confirmed by Junito Madrid ([id number]), supervising editor trailer MAGALIE RAMIREZ ([id number]) on 07/20/2023 1:47:04 PM Chest XR 07/20/23: [...] KB 30 S [facility] Everywhere for continuity of [...] call Yoseph Fall MD documented in this encounterOhiohealth Riverside Methodist Hospital04-01-2024 History of Present illness Narrative* Martha Baca MA - 07/26/2023 10:20 AM EDT TRANSITION CARE MANAGEMENT (TCM) INITIAL CONTACT [employer] Consultant Outreach Provider Action/FYI: Pt reports that she's [...] of Discharge 07/22/2023 SUMMARY: -Pt discharged from [facility] on 07/22/23. Pt admitted on 07/20/23. [...] anxiety, GERD and OA who presents to [facility] ER complaining of shortness of [...] acute exacerbation of COPD withclinical evidence of uvaqe-sd-xrwitno hypoxic respiratory insufficiency likely due to recent [...] enlargement Borderline ECG Confirmed by Junito Madrid ([id number]), supervising editor trailer MAGALIE RAMIREZ ([id number]) on 07/20/2023 1:47:04 PM Chest XR 07/20/23: [...] S Records were obtained from [facility] Everywhere for continuity [...] Yes Medical records from recent hospitalization: Care Everywhere/[facility] records Martha Baca MA documented in this encounterOhiohealth Riverside Methodist Hospital03-28-2024 Discharge summary Author Jan Bolanos [facility] July 22, 2023 4:12pm Note Date/Time July 22, 2023 4:0 4pm [facility] Medical Records Department [address] [place] [address] Instructions for Home/Discharge Instructions 07/22/23 1603 MR#: [id number] Acct: [id number] Name: DENIA GONZALEZ Rep #:[id number] : 1955 68 From: Jan brennan MD [...] DO; Dr. Yoseph Fall MD ~ Signed [facility] Work Phone: 1(788) 807-577103-28-2024 Discharge summary Author Jan Bolanos [facility] July 22, 2023 4:18pm Note Date/Time July 22, 2023 4:1 7pm [facility] Medical Records Department [address] [place] [address] Discharge Summary 07/22/231611 MR#: [id number] Acct: [id number] Name: DENIA GONZALEZ Rep #:[id number] : 1955 68 From: Jan brennan MD PCP: Dr. Yoseph Fall MD Status:AD IN Location: [place] [address] Providers Date of Admission: 07/20/23 Primary Care Physician: Dr. Yoseph Fall MD Reason For Visit: ACUTE EXACERBATION OF COPD WITH RIAMA-SQ-NRISZFT Diagnosis Discharge Diagnosis (1) COPD with acute [...] anxiety, GERD and OA who presents to [facility] ER complaining of shortness of [...] exacerbation of COPD with clinical evidence of akgas-xi-apejakz hypoxic respiratory insufficiency likely due to recent [...] Self Care Charges/Coding Visit Charges Inpatient E&M: 72237 Disch Hosp >30min 07/22/23 1618 <Electronically signed by Jan Bolanos MD> Cosigner Signature (if applicable): CC: Dr. Yoseph Fall MD; Dr. Jan Bolanos MD~ Signed [facility] Work Phone: 1(510) 837-824803-28-2024 Progress note Author Jan [facility] July 22, 2023 11:02am Note Date/Time July 22, 2023 11: 02am [facility] Medical Records Department [address] [place] [address] Progress Note - Hospitalist 07/22/23 1101 MR#: [id number] Acct: [id number] Name: DENIA GONZALEZ Rep #:[id number] : 1955 68 From: Jan brennan MD PCP: Dr. Yoseph Fall MD Status:AD M IN [facility] Subjective Subjective Doing well, feels like she [...] DVT: Lovenox Charges/Coding Visit Charges Inpatient E&M: 30687 Subs Hosp L2 07/22/23 1102 <Electronically signed by Jan Bolanos MD> Cosigner Signature (if applicable): CC: ~ Signed [facility] Work Phone: 1(723) 113-862603-27-2024 Progress note Author Jan Bolanos [facility] July 21, 2023 10:28am Note Date/Time July 21, 2023 10: 25am [facility] Medical Records Department [address] [place] [address] Progress Note - Hospitalist 07/21/23 1013 MR#: [id number] Acct: [id number] Name: DENIA GONZALEZ Rep #:[id number] : 1955 68 From: Jan brennan MD PCP: Dr. Yoseph Fall MD Status:AD M IN Location: [place]3 IF010-6 Subjective Subjective She feels about the same [...] 88.1 H, Lymph % (Auto) 8.8 L, Burt %(Auto) 2.7, Eos % (Auto) 0.0, Baso [...] DVT: Lovenox Charges/Coding Visit Charges Inpatient E&M: 86540 Subs Hosp L2 07/21/23 1028 <Electronically signed by Jan Bolanos MD> Cosigner Signature (if applicable): CC: ~ Signed [facility] Work Phone: 1(333) 300-276903-26-2024 Discharge summary Author Dallas Mena [facility] July 20, 2023 6:49am Note Date/Time July 20, 2023 3:0 9am [facility] Medical Records Department [address] [place] [address] Emergency Department Summary 07/20/23 MR#: [id number] Acct: [id number] Name: DENIA GONZALEZ Rep #:[id number] : 1955 68 From: Dallas Mena MD PCP: Dr. Yoseph Fall MD Status:AD M IN Location: [place] [address] HPI History of Present Illness Chief Complaint: [...] % (Auto) 67.5 Lymph % (Auto) 23.7 Burt % (Auto) 7.6 Eos % (Auto) 0.6 [...] rate of 128. No acute signs of NE or ischemia. Discharge Plan Triage Chief Complaint: [...] and wheezing. Disposition Disposition: Acute Care Hospital [facility] What to do if you have Problems For any increased pain, shortness of breath, bleeding, nausea or vomiting, chestpain, or any unexpected problems, contact your Primary Care Provider. Call [facility] ([phone]) or report to the closest Emergency Room. Call 911 if necessary. 07/20/23 0649 <Electronically signed by Dallas Mena MD> Cosigner Signature (if applicable): CC: Dr. Yoseph Fall MD ~ Signed [facility] Work Phone: 1(688) 404-985503-26-2024 Miscellaneous Notes* Telephone Encounter - Martha Baca MA - 07/20/2023 8:40 AM EDT Pt currently admitted into [facility] due to symptoms. Martha Bcaa MA * Telephone Encounter - Martha Baca [...] - 07/19/2023 8:33 AM EDT Pt's DIL Tervonmatpaulette, calls to reports pt has sx of [...] Jennifer Hennessy LPN documented in this encounterOhiohealth Riverside [facility] Hospital03-26-2024 History and physical note Author José Smith [facility] July 20, 2023 4:55am Note Date/Time July 20, 2023 4:2 4am [facility] Medical Records Department [address] [place] [address] H&P Exam - Hospitalist 07/20/23 0406 MR#: [id number] Acct: [id number] Name: DENIA GONZALEZ Rep #:[id number] : 1955 68 From: José Abebe DO PCP: Dr. Yoseph Fall MD Status:AD M IN Location: [facility] YB851-0 HPI - General General Date of Admission: [...] anxiety, GERD and OA who presents to [facility] ER complaining of shortness of [...] exacerbation of COPD with clinical evidence of exorh-iz-xqkqhws hypoxic respiratory insufficiency likely due to recent [...] % (Auto) 67.5, Lymph % (Auto) 23.7, Burt% (Auto) 7.6, Eos % (Auto) 0.6, Baso [...] needed nebulizers. Give Tylenol as needed for nlhy-ma-xxvwdprv(level 1- 5/10) pain or fever. Continue Percocet prn for severe (level 6-10/10) pain. Tobacco cessation will be strongly encouraged with nicotine patch offeredto control cravings. 2. Viral URI likely triggering #1 - Check viral respiratory panel and placed oncontact and droplet precautions until confirmed negative. 3. Erygn-ye-pmbtkfr hypoxic respiratory insufficiency arising from #1 & [...] 55 minutes. Charges/Coding Visit Charges Inpatient E&M: 85268 Init Hosp L2 07/20/23 3175 <Electronically signed by José Cunningham DO> Cosigner Signature (if applicable): CC: Dr. José Cunningham DO; Dr. Yoseph Fall MD~ Signed [facility] Work Phone: 1(103) 149-471103-04-2024 Miscellaneous Notes* Telephone Encounter - Yoseph Fall MD - 06/28/2023 3:59 PM EST OK to refill as ordered Yoseph Fall MD documented in this encounterOhiohealth Riverside Methodist Hospital02-22-2024 Miscellaneous Notes* Telephone Encounter - Naima Haines Ma - 06/17/2023 11:12 AM EST Faxed. Naima Haines Ma * Telephone Encounter - Naima Haines Ma - 06/17/2023 9:58 AM EST Type of letter/form/fax request - Medical Necessity-incontinence supplies Form received from fax on 1 floor and placed on MD desk (Dr. Fall) for completion. Completed form needs to be faxed to [facility] at [phone]. Route to [place] when form completed for processing documented in this encounterOhiohealth Riverside Methodist Hospital02-21-2024 Miscellaneous Notes* Telephone Encounter - Meenu [...] PA cmpleted for tiotropium alina GONZALEZ ([place]: [id number]) - [id number] Spiriva HandiHaler 18MCG capsules Status: PA Request Created: June 11, 2023 [id number] Sent: June 14, 2023 documented in this encounterOhiohealth Riverside [facility] Hospital02-20-2024 Miscellaneous Notes* Telephone Encounter - Martha [...] pt with reply. documented in this encounterOhiohealth Riverside Methodist Hospital02-16-2024 Miscellaneous Notes* Telephone Encounter - Yoseph [...] Brynn Watson LPN. documented in this encounterOhiohealth Riverside Methodist Hospital12-05-2023 Miscellaneous Notes* Telephone Encounter - Padmini Abbott RN - 03/30/2023 4:17 PM EST Pt's significant other, Mike Gregg calling. Requesting PCP office to fax orders for pt's nebulizer ,compressor and accessories to [facility] at FAX #: [phone], along with recent OV note. States pt receives other equipment from them and they would like to use their services. States they have not heard from [facility] when orders were originally faxed to them. Faxed as requested. Padmini Abbott RN documented in this encounterOhiohealth Riverside Methodist Hospital11-22-2023 Miscellaneous Notes* Telephone Encounter - Roxanna [...] Roxanna Tineo LPN. documented in this encounterOhiohealth Riverside Methodist Hospital10-27-2023 Instructions* Patient Instructions* Martha Baca Ma - 02/19/2023 2:31 PM EDT Check with Net Manager on RSV vaccine. documented in this encounterOhiohealth Riverside Methodist Hospital10-27-2023 History of Present illness Narrative* Yoseph [...] is currently being weaned down on her Bliss 5-325 mg, concerned about going any lower as she doesn't think her pain will be controlled. She is taking Bliss 5-325 mg 1 pill bid prn, getting #33/month, and Flexeril 10 mg BID prn. Bliss was decreased last visit from #35/month to [...] Agreeable to Flu shot today. Reports her Net Manager, may be able to give her the [...] and lung, unspecified site 04/26/2003 Lung cancer NE (myocardial infarction) (HCC) 10-10 taken to [facility] "heart stopped" Obstructive chronic bronchitis with exacerbation [...] instructed every 4 hours asneeded. PULSE OXIMETER [facility] Use as directed to check oxygen [...] as directed. Dx: COPD J44.9 Nebulizer Accessories [facility] Mask and supplies as needed Krgxlwzikdwlm-VR-precHDIdysr (MUCINEX FAST-MAX CONGEST-COUGH) 2.5-5-100 mg/5 mL liqd Take 10 mL by mouth three times daily as needed. OXYGEN, HOME THERAPY, 2.5 L/min by Nasal Cannula route continuous. Use as directred Disposable Gloves (DISPOSABLE LATEX-FREE GLOVES) [facility] 1 Box once [...] medication regimen. - Send Nebulizer supplies to [facility] 8. Gastroesophageal reflux disease, unspecified whether esophagitis present - ICD9: 530.81, ICD10: K21.9 - Stable - Continue current medication regimen. 9. Chronic obstructive pulmonary disease, unspecified COPD type ([facility]) - ICD9: [...] Past Histories independently gathered by the clinical ict customer support officer and the remaining scribed note accurately describes [...] PM. Martha Baca Ma documented in this encounterOhiohealth Riverside Methodist Hospital09-22-2023 Miscellaneous Notes* Telephone Encounter - Nelson [...] Sukhi Marrero, RN documented in this encounterOhiohealth Riverside Methodist Hospital09-05-2023 Miscellaneous Notes* Telephone Encounter - Nelson [...] 12/29/2022 12:32 PM EDT Pharmacy verified in [facility] Patient has been identified by name [...] advise. Mercedez Foster Pss documented in this encounterOhiohealth Riverside Methodist Hospital08-17-2023 Miscellaneous Notes* Telephone Encounter - Meenu Hanks LPN - 12/10/2022 3:29 PM EDT Pt notfied Meenu Hanks LPN * Telephone Encounter - Yoseph Fall MD - 12/10/2022 2:38 PM EDT Order filed Yoseph Fall MD * Telephone Encounter - Brynn Watson LPN - 12/10/2022 12:09 PM EDT Patient daughter calling mother had sent to her to pick pulling machine tender stool sample, no order in computer. Computer shows at last office visit Dr was asking patient if she would do IFOBT and no order was put in the computer. Pending order needs diagnosis. Call patient when order in place so can pick pulling machine tender kit. Please advise documented in this encounterOhiohealth Riverside Methodist Hospital07-14-2023 Miscellaneous Notes* Telephone Encounter - Nelson [...] one pill left. documented in this encounterOhiohealth Riverside Methodist Hospital05-09-2023 Miscellaneous Notes* Telephone Encounter - Michelle [...] them run with specific NDC code. NDC: [id number] NDC: [id number] Called [facility] and they ran medication [...] PAover the phone with rep PA # [id number] Michelle Alvarez Ma * Telephone Encounter - Michelle Alvarez Ma - 08/21/2022 3:46 PM EDT PA have never been completed for either med which needs done first before appeal letter. Completed Electronic PA for Advair was approved and verified with [employer] through. Tried calling patientbut no answer and vm full. PA completed through covermymeds for flexeril [place]: [id number] Michelle Alvarez Ma * Telephone Encounter - [...] know the fax number. Patient's insurance is [employer]. Asked patient what the phone number was [...] calling: self Call patient at: at home [phone] (home) [phone] (cell) Was an appointment scheduled: No Closing statement: Results or non-symptom based questions: Thank you for calling [facility], your call will be returned within the next business day. Orly Stacy documented in this encounterOhiohealth Riverside Methodist Hospital03-10-2023 Miscellaneous Notes* Telephone Encounter - Naima Haines Ma - 07/03/2022 10:32 AM EST Faxed. Naima Haines Ma * Telephone Encounter - Naima Haines Ma - 07/02/2022 9:09 AM EST Type of letter/form/fax request - Medical Necessity-Incontinence supplies Form received from fax on [address] Fall's desk for completion. Completed form needs to be faxed to [facility] at [phone]. Route to [place] when form completed for processing documented in this encounterOhiohealth Riverside Methodist Hospital03-06-2023 Miscellaneous Notes* Telephone Encounter - Nelson [...] to pharmacy. No need to notify patient. Oryl Stacy documented in this encounterOhiohealth Riverside Methodist Hospital02-13-2023 Miscellaneous Notes* Telephone Encounter - Nelson [...] Essie Medina RN documented in this encounterOhiohealth Riverside Methodist Hospital01-20-2023 Miscellaneous Notes* Telephone Encounter - Yoseph [...] of Last Labs: documented in this encounterOhiohealth Riverside Methodist Hospital01-10-2023 Miscellaneous Notes* Telephone Encounter - Nelson [...] patient. Fawn Carrillo documented in this encounterOhiohealth Riverside Methodist Hospital01-06-2023 History of Present illness Narrative* Yoseph [...] is currently being weaned down on her Bliss 5-325 mg. Does not think shecan go any lower on the Bliss. Pt on current regimen of Bliss 5-325 mg taking 1 tab po bid [...] and lung, unspecified site 04/26/2003 Lung cancer NE (myocardial infarction) (HCC) 10-10 taken to [facility] "heart stopped" Obstructive chronic bronchitis with exacerbation [...] instructed every 4 hours asneeded. PULSE OXIMETER [facility] Use as directed to check oxygen [...] Accessories mis Mask and supplies as needed Fbyxsjhpkxske-VD-exglMOYfoeu (MUCINEX FAST-MAX CONGEST-COUGH) 2.5-5-100 mg/5 mL liqd Take 10 mL by mouth three times daily as needed. OXYGEN, HOME THERAPY, 2.5 L/min by Nasal Cannula route continuous. Use as directred Disposable Gloves (DISPOSABLE LATEX-FREE GLOVES) [facility] 1 Box once [...] Past Histories independently gathered by the clinical ict customer support officer and the remaining scribed note accurately describes my personal service to the patient. 5-10 minutes of time spent on phone call Yoseph Fall MD The documentation for this note was completed by Naima Haines Ma acting as scribe for Yoseph Fall MD. May 01, 2022 2:41 PM. Naima Haines Ma documented in this encounterOhiohealth Riverside Methodist Hospital12-27-2022 Miscellaneous Notes* Telephone Encounter - Yoseph [...] with PCP please. documented in this encounterOhiohealth Riverside Methodist Hospital11-04-2022 Miscellaneous Notes* Telephone Encounter - Falguni [...] file order for oxygen and fax to [facility] in [place]. This nurse does not see order in computer and it appears PCP has ordered oxygen in the past. Please call patient at [phone] when this has been completed or if there are any issues. documented in this encounterOhiohealth Riverside Methodist Hospital10-28-2022 Procedure note* MUNA Cutler - 02/20/2022 [...] 1:25 PM Comment: documented in this encounterOhiohealth Riverside Methodist Hospital10-28-2022 History of Present illness Narrative* MUNA Cutler - 02/20/2022 1:22 PM EDT PULM FUNCTION SMARTBLOCK: Provider: Michelle Guzmán MD Assisting Tech: MUNA Cutler Oximetry - Ambulation: 1 documented in this encounterOhiohealth Riverside Methodist Hospital09-27-2022 Miscellaneous Notes* Telephone Encounter - Nelson [...] notify patient. Fina Carrillo documented in this encounterOhiohealth Riverside Methodist Hospital09-15-2022 Miscellaneous Notes* Telephone Encounter - Falguni Patton LPN - 01/08/2022 8:39 AM EDT Noted, thank you! Falguni Patton LPN * Telephone Encounter - Mini Pineda RN - 01/08/2022 8:31 AM EDT Bettie with [facility] calling in. [facility] pt. needs to re-qualify for home O2. Pt. has not seen a Global Sales Director for a while (former pt. of Dr. Huertas). This nurse instructed Bettie to have pt.call to set up consult/ appt with Dr. Guzmán. Bettie will do so. Mini Pineda, RN documented in this encounterOhiohealth Riverside Methodist Hospital08-25-2022 Miscellaneous Notes* Telephone Encounter - Naima [...] you. Martínez Louie RN documented in this encounterOhiohealth Riverside Methodist Hospital07-25-2022 Miscellaneous Notes* Telephone Encounter - Nelson [...] Denia Ariza Pss documented in this encounterOhiohealth Riverside Methodist Hospital06-24-2022 History of Present illness Narrative* Yoseph [...] is currently being weaned down on her Bliss 5-325 mg. Pt on current regimen of Bliss 5-325 mg taking 1 tab po bid [...] and lung, unspecified site 2003 Lung cancer NE (myocardial infarction) (HCC) 10-10 taken to [facility] "heart stopped" Obstructive chronic bronchitis with exacerbation [...] as needed for muscle spasm. PULSE OXIMETER [facility] Use as directed to check oxygen [...] as directed. Dx: COPD J44.9 Nebulizer Accessories [facility] Mask and supplies as needed Kaaoxiyujqblf-XH-zfbmISJrqvs (MUCINEX FAST-MAX CONGEST-COUGH) 2.5-5-100 mg/5 mL liqd Take 10 mL by mouth three times daily as needed. OXYGEN, HOME THERAPY, 2.5 L/min by Nasal Cannula route continuous. Use as directred Disposable Gloves (DISPOSABLE LATEX-FREE GLOVES) [facility] 1 Box once [...] Past Histories independently gathered by the clinical ict customer support officer and the remaining scribed note accurately describes my personal service to the patient. Yoseph Fall MD The documentation for this note was completed by Naima Haines Ma acting as scribe for Yoseph Fall MD. October 17, 2021 2:02 PM. Naima Haines Ma documented in this encounterOhiohealth Riverside Methodist Hospital06-07-2022 Miscellaneous Notes* Telephone Encounter - Naima [...] Mikayla Mora LPN documented in this encounterOhiohealth Riverside Methodist Hospital05-23-2022 Miscellaneous Notes* Telephone Encounter - Yoseph [...] Jennifer Hennessy LPN documented in this encounterOhiohealth Riverside Methodist Hospital05-04-2022 Miscellaneous Notes* Telephone Encounter - Nelson [...] provider send a new prescription to [facility]. Pharmacy won't fill current prescription. Date [...] Sukhi Marrero RN documented in this encounterOhiohealth Riverside Methodist Hospital04-25-2022 Miscellaneous Notes* Telephone Encounter - Naima [...] Padmini Abbott RN documented in this encounterOhiohealth Riverside Methodist Hospital03-07-2017 History of Past illness Narrative* Problem [...] - Not done as it will not bladder changer (same duration of ABx treatment) Cholelithiasis [...] 06/24/2016 - Decreased Flatulence - KUB at [place] ED was normal (report available only) Plan: [...] of this encounter (statuses as of 08/01/2021) [place] [address]-07-2017 History of Past illness Narrative* Problem Noted [...] - Not done as it will not bladder changer (same duration of ABx treatment) Cholelithiasis [...] 06/24/2016 - Decreased Flatulence - KUB at [place] ED was normal (report available only) Plan: [...] this encounter (statuses as of 08/18/2021) [facility] History of Past illness Narrative* Problem [...] - Not done as it will not bladder changer (same duration of ABx treatment) Cholelithiasis [...] 06/24/2016 - Decreased Flatulence - KUB at [place] ED was normal (report available only) Plan: [...] this encounter (statuses as of 08/27/2021) [facility]03-[facility] History of Past illness Narrative* Problem [...] - Not done as it will not bladder changer (same duration of ABx treatment) Cholelithiasis [...] 06/24/2016 - Decreased Flatulence - KUB at [place] ED was normal (report available only) Plan: [...] this encounter (statuses as of 09/15/2021) [facility] History of Past illness Narrative* Problem [...] - Not done as it will not bladder changer (same duration of ABx treatment) Cholelithiasis [...] 06/24/2016 - Decreased Flatulence - KUB at [place] [facility] was normal (report available only) Plan: [...] this encounter (statuses as of 09/30/2021) [facility] History of Past illness Narrative* Problem [...] - Not done as it will not bladder changer (same duration of ABx treatment) Cholelithiasis [...] 06/24/2016 - Decreased Flatulence - KUB at [place] [facility] was normal (report available only) Plan: [...] this encounter (statuses as of 10/17/2021) [facility] History of Past illness Narrative* Problem [...] - Not done as it will not bladder changer (same duration of ABx treatment) Cholelithiasis [...] 06/24/2016 - Decreased Flatulence - KUB at [facility] was normal (report available only) Plan: - [...] this encounter (statuses as of 11/17/2021) [facility] History of Past illness Narrative* Problem [...] - Not done as it will not bladder changer (same duration of ABx treatment) Cholelithiasis [...] 06/24/2016 - Decreased Flatulence - KUB at [place] [facility] was normal (report available only) Plan: [...] this encounter (statuses as of 12/18/2021) [facility] History of Past illness Narrative* Problem [...] - Not done as it will not bladder changer (same duration of ABx treatment) Cholelithiasis [...] 06/24/2016 - Decreased Flatulence - KUB at [place] [facility] was normal (report available only) Plan: [...] this encounter (statuses as of 01/08/2022) [facility] History of Past illness Narrative* Problem [...] - Not done as it will not bladder changer (same duration of ABx treatment) Cholelithiasis [...] 06/24/2016 - Decreased Flatulence - KUB at [place] [facility] was normal (report available only) Plan: [...] of this encounter (statuses as of 01/13/2022) [place] [address]-07-2017 History of Past illness Narrative* Problem Noted [...] - Not done as it will not bladder changer (same duration of ABx treatment) Cholelithiasis [...] 06/24/2016 - Decreased Flatulence - KUB at [place] [facility] was normal (report available only) Plan: [...] this encounter (statuses as of 01/20/2022) [facility] History of Past illness Narrative* Problem [...] - Not done as it will not bladder changer (same duration of ABx treatment) Cholelithiasis [...] 06/24/2016 - Decreased Flatulence - KUB at [place] [facility] was normal (report available only) Plan: [...] this encounter (statuses as of 02/20/2022) [facility]2017 History of Past illness Narrative* Problem [...] - Not done as it will not bladder changer (same duration of ABx treatment) Cholelithiasis [...] 06/24/2016 - Decreased Flatulence - KUB at [place] [facility] was normal (report available only) Plan: [...] this encounter (statuses as of 02/27/2022) [facility]2017 History of Past illness Narrative* Problem [...] - Not done as it will not bladder changer (same duration of ABx treatment) Cholelithiasis [...] 06/24/2016 - Decreased Flatulence - KUB at [place] [facility] was normal (report available only) Plan: [...] this encounter (statuses as of 04/26/2022) [facility]2017 History of Past illness Narrative* Problem [...] - Not done as it will not bladder changer (same duration of ABx treatment) Cholelithiasis [...] 06/24/2016 - Decreased Flatulence - KUB at [place] [facility] was normal (report available only) Plan: [...] this encounter (statuses as of 05/02/2022) [facility] History of Past illness Narrative* Problem [...] - Not done as it will not bladder changer (same duration of ABx treatment) Cholelithiasis [...] 06/24/2016 - Decreased Flatulence - KUB at [place] [facility] was normal (report available only) Plan: [...] this encounter (statuses as of 05/05/2022) [facility] History of Past illness Narrative* Problem [...] - Not done as it will not bladder changer (same duration of ABx treatment) Cholelithiasis [...] 06/24/2016 - Decreased Flatulence - KUB at [place] [facility] was normal (report available only) Plan: [...] this encounter (statuses as of 05/15/2022) [facility] History of Past illness Narrative* Problem [...] - Not done as it will not bladder changer (same duration of ABx treatment) Cholelithiasis [...] 06/24/2016 - Decreased Flatulence - KUB at [place] [facility] was normal (report available only) Plan: [...] this encounter (statuses as of 06/08/2022) [facility] History of Past illness Narrative* Problem [...] - Not done as it will not bladder changer (same duration of ABx treatment) Cholelithiasis [...] 06/24/2016 - Decreased Flatulence - KUB at [place] [facility] was normal (report available only) Plan: [...] this encounter (statuses as of 06/29/2022) [facility] History of Past illness Narrative* Problem [...] - Not done as it will not bladder changer (same duration of ABx treatment) Cholelithiasis [...] 06/24/2016 - Decreased Flatulence - KUB at [place] [facility] was normal (report available only) Plan: [...] this encounter (statuses as of 07/03/2022) [facility] History of Past illness Narrative* Problem [...] - Not done as it will not bladder changer (same duration of ABx treatment) Cholelithiasis [...] 06/24/2016 - Decreased Flatulence - KUB at [place] [facility] was normal (report available only) Plan: [...] this encounter (statuses as of 09/01/2022) [facility] History of Past illness Narrative* Problem [...] - Not done as it will not bladder changer (same duration of ABx treatment) Cholelithiasis [...] 06/24/2016 - Decreased Flatulence - KUB at [place] [facility] was normal (report available only) Plan: [...] this encounter (statuses as of 11/06/2022) [facility] History of Past illness Narrative* Problem [...] - Not done as it will not bladder changer (same duration of ABx treatment) Cholelithiasis [...] 06/24/2016 - Decreased Flatulence - KUB at [place] [facility] was normal (report available only) Plan: [...] this encounter (statuses as of 11/06/2022) [facility] History of Past illness Narrative* Problem [...] - Not done as it will not bladder changer (same duration of ABx treatment) Cholelithiasis [...] 06/24/2016 - Decreased Flatulence - KUB at [place] [facility] was normal (report available only) Plan: [...] this encounter (statuses as of 12/29/2022) [facility] History of Past illness Narrative* Problem [...] - Not done as it will not bladder changer (same duration of ABx treatment) Cholelithiasis [...] 06/24/2016 - Decreased Flatulence - KUB at [facility] was normal (report available only) Plan: - [...] this encounter (statuses as of 01/15/2023) [facility] History of Past illness Narrative* Problem [...] - Not done as it will not bladder changer (same duration of ABx treatment) Cholelithiasis [...] 06/24/2016 - Decreased Flatulence - KUB at [place] [facility] was normal (report available only) Plan: [...] this encounter (statuses as of 01/30/2023) [facility] History of Past illness Narrative* Problem [...] - Not done as it will not bladder changer (same duration of ABx treatment) Cholelithiasis [...] 06/24/2016 - Decreased Flatulence - KUB at [place] [facility] was normal (report available only) Plan: [...] this encounter (statuses as of 02/19/2023) [facility] History of Past illness Narrative* Problem [...] - Not done as it will not bladder changer (same duration of ABx treatment) Cholelithiasis [...] 06/24/2016 - Decreased Flatulence - KUB at [place] [facility] was normal (report available only) Plan: [...] this encounter (statuses as of 03/17/2023) [facility] History of Past illness Narrative* Problem [...] - Not done as it will not bladder changer (same duration of ABx treatment) Cholelithiasis [...] 06/24/2016 - Decreased Flatulence - KUB at [place] [facility] was normal (report available only) Plan: [...] this encounter (statuses as of 03/31/2023) [facility] History of Past illness Narrative* Problem [...] - Not done as it will not bladder changer (same duration of ABx treatment) Cholelithiasis [...] 06/24/2016 - Decreased Flatulence - KUB at [place] [facility] was normal (report available only) Plan: [...] this encounter (statuses as of 06/11/2023) [facility] History of Past illness Narrative* Problem [...] - Not done as it will not bladder changer (same duration of ABx treatment) Cholelithiasis [...] 06/24/2016 - Decreased Flatulence - KUB at [place] [facility] was normal (report available only) Plan: [...] this encounter (statuses as of 06/15/2023) [facility] History of Past illness Narrative* Problem [...] - Not done as it will not bladder changer (same duration of ABx treatment) Cholelithiasis [...] 06/24/2016 - Decreased Flatulence - KUB at [place] [facility] was normal (report available only) Plan: [...] this encounter (statuses as of 06/16/2023) [facility] History of Past illness Narrative* Problem [...] - Not done as it will not bladder changer (same duration of ABx treatment) Cholelithiasis [...] 06/24/2016 - Decreased Flatulence - KUB at [place] [facility] was normal (report available only) Plan: [...] this encounter (statuses as of 06/17/2023) [facility] History of Past illness Narrative* Problem [...] - Not done as it will not bladder changer (same duration of ABx treatment) Cholelithiasis [...] 06/24/2016 - Decreased Flatulence - KUB at [place] [facility] was normal (report available only) Plan: [...] this encounter (statuses as of 06/21/2023) [facility] History of Past illness Narrative* Problem [...] yesterday - F/U on ID recommendations - TOYB under general anesthesia - Not done as it will not bladder changer (same duration of ABx treatment) Cholelithiasis [...] 06/24/2016 - Decreased Flatulence - KUB at [place] [facility] was normal (report available only) Plan: [...] this encounter (statuses as of 06/28/2023) [facility] History of Past illness Narrative* Problem [...] - Not done as it will not bladder changer (same duration of ABx treatment) Cholelithiasis [...] 06/24/2016 - Decreased Flatulence - KUB at [place] [facility] was normal (report available only) Plan: [...] this encounter (statuses as of 07/20/2023) [facility] History of Past illness Narrative* Problem [...] - Not done as it will not bladder changer (same duration of ABx treatment) Cholelithiasis [...] 06/24/2016 - Decreased Flatulence - KUB at [place] [facility] was normal (report available only) Plan: [...] this encounter (statuses as of 07/26/2023) [facility] History of Past illness Narrative* Problem [...] - Not done as it will not bladder changer (same duration of ABx treatment) Cholelithiasis [...] 06/24/2016 - Decreased Flatulence - KUB at [place] [facility] was normal (report available only) Plan: [...] this encounter (statuses as of 07/27/2023) [facility] History of Past illness Narrative* Problem [...] - Not done as it will not bladder changer (same duration of ABx treatment) Cholelithiasis [...] 06/24/2016 - Decreased Flatulence - KUB at [place] [facility] was normal (report available only) Plan: [...] this encounter (statuses as of 08/06/2023) [facility] Author Riley Jeff [facility] Note Date/Time September 29, 2024 4:33a m [facility] Medical Records Department [address] [place] [address] Emergency Department Summary 09/29/24 MR#: [id number] Acct: [id number] Name: DENIA GONZALEZ Rep #:[id number] : 1955 69 From: Riley Jeff DO [...] Secondary to that she presents for evaluation [facility] Medical History RLS (restless legs [...] 78.5 H Lymph % (Auto) 13.2 L Burt % (Auto) 6.9 Eos % (Auto) 0.7 [...] of an acute cardiopulmonary abnormality. Reading Location: [id number] Chest x-ray as interpreted by the emergency medicine physician reveals no acute infiltrate pneumothorax or pleural effusion Management Discussion w/another healthcare provider: Hospitalist Discharge Plan Dx/Rx/DC Orders Clinical Impression: COPD with acute exacerbation, Benign essential hypertension, Anxiety and depression Disposition Disposition: Acute Care Hospital [facility] What to do if you have Problems For any increased pain, shortness of breath, bleeding, nausea or vomiting, chestpain, or any unexpected problems, contact your Primary Care Provider. Call [facility] ([phone]) or report to the closest Emergency Room. Call 911 if necessary. 09/29/24 0433 <Electronically signed by Riley Jeff DO> Cosigner Signature (if applicable): CC: Dr. Yoseph Fall MD ~ Signed [facility] Work Phone: Discharge summary Author Alessandro Palma [facility] Note Date/Time October 09, 2024 3:58 pm [facility] Medical Records Department [address] [place] [address] Instructions for Home/Discharge Instructions 10/09/24 1542 MR#: [id number] Acct: [id number] Name: DENIA GONZALEZ Rep #:[id number] : 1955 69 From: Alessandro Liu PCP: [...] MD; Dr. Jan Bolanos MD ~ Signed [facility] Work Phone: Discharge summary Author [facility] Louie [facility] Note Date/Time October 09, 2024 4:06 pm [facility] Medical Records Department [address] [place] [address] Discharge Summary 10/09/24 1558 MR#: [id number] Acct: [id number] Name: DENIA GONZALEZ Rep #:[id number] : 1955 69 From: Alessandro Liu PCP: Dr. Yoseph Fall MD Status:AD M IN Location: [facility] [id number] Providers Date of Admission: 09/29/24 Date [...] mg twice daily. * Discussed with the javascript front end developer Dr. Hopkins today. Discharge on verapamil and [...] 86.9 H, Lymph % (Auto) 6.9 L, Burt %(Auto) 5.3, Eos % (Auto) 0.0, Baso [...] Health Service Charges/Coding Visit Charges Inpatient E&M: 71899 Disch Hosp >30min 10/09/24 1606 <Electronically signed by Alessandro Palma MD> Cosigner Signature (if applicable): CC: Dr. Yoseph Fall MD; Dr. Alessandro Palma MD~ Signed [facility] Work Phone: Discharge summary Author Lynne Schafer [facility] Note Date/Time December 30, 2024 11:[address] [place] [address] Health System Medical Records Department [address] [place] [address] Instructions for Home/Discharge Instructions 12/30/24 1141 MR#: [id number] Acct: [id number] Name: DENIA GONZALEZ Rep #:[id number] : 1955 69 From: Lynne Schafer MD [...] by Lynne Schafer MD>Lynne Schafer MD CC: FORMING MILL OPERATOR-C Elma Mendez; FORMING MILL OPERATOR-C Stacy Jha; FORMING MILL OPERATOR-C Mercedez Joseph; Dr. Dionne Porter MD; Dr. Yoseph Fall MD; Dr. Alessandro Palma MD;SADIQ Paez; Kyle Mendenhall DO ~ Signed [facility] Work Phone: Discharge summary Author [facility] Note Date/Time January 25, 2025 10 :35am [facility] Medical Records Department [address] [place] [address] Emergency Department Summary 01/25/25 MR#: [id number] Acct: [id number] Name: DENIA GONZALEZ Rep #:[id number] : 1955 69 From: Mercy Lamas PCP: [...] a heart cath 3 weeks ago at [facility]. He is not sure if she is still on her Eliquis or not. No other information obtained at this time. He understand that she will need admission to the ICU. [facility] Medical History Palliative care encounter [...] heater probe. She is following up with [facility] for her severe concentric left ventricular hypertrophy [...] Dr. Palma. Also discussed the case with learning analyst. While in the ICU patient's does develop [...] 74.3 H Lymph % (Auto) 12.5 L Burt % (Auto) 11.0 H Eos % (Auto) [...] CHRONIC CHANGES. NO ACUTE FINDINGS. Reading Location: [facility] Chest CTA 01/25/25 08:51 IMPRESSION: No [...] cysts, no specific follow-up needed Reading Location: [facility] Chest X-Ray 01/25/25 09:00 IMPRESSION: Tubes and lines in position. There are interstitial infiltrates throughout the right mid and lower lung and left lingular segment. There are trace bilateral effusions. Reading [facility] Rhythm Strip Rhythm Strip: Sinus Tach [...] Management Discussion w/another healthcare provider: Hospitalist and Stitcher Operator Procedures Intubations Intubation Method: orotracheal (7.5 ET [...] procedures): 30-74 minutes (47), Discussing w/Patient &/or Family/Rail Car Repair Carman, Discussing w/Consultants, Arranging Admission or Transfer and Performing Direct Patient Care at Bedside Discharge Plan Dx/Rx/DC Orders Clinical Impression: Acute respiratory failure, Tachycardia, Aortic valve stenosis, Anticoagulated on apixaban, Pneumonia, Chronic anemia Disposition Disposition: Acute Care [facility] What to do if you have Problems For any increased pain, shortness of breath, bleeding, nausea or vomiting, chestpain, or any unexpected problems, contact your Primary Care Provider. Call [facility] ([phone]) or report to the closest Emergency Room. Call 911 if necessary. 01/25/25 1035 <Electronically signed by Mercy Flores DO> Cosigner Signature (if applicable): CC: Dr. Yoseph Fall MD ~ Signed [facility] Work Phone: Evaluation note* Diagnosis Essential hypertension, benign- Primary Elevated glucose Other abnormal glucose [facility] Diagnosis Chronic low back pain with sciatica, sciatica laterality unspecified, unspecified back pain laterality [facility] encounter [facility] Diagnosis Chronic obstructive pulmonary disease, unspecified COPD type (HCC) documented [facility]* Diagnosis Chronic obstructive pulmonary disease, unspecified COPD type (HCC)- Primary Chronic low back pain with sciatica, sciatica laterality unspecified, unspecified back pain laterality Essential hypertension, benign Uncomplicated asthma, unspecified asthma severity, unspecified whether persistent Generalized anxiety disorder [facility] Diagnosis Chronic low back pain with sciatica, sciatica laterality unspecified, unspecified back pain laterality [facility] Diagnosis Chronic obstructive pulmonary disease, unspecified COPD type (HCC)- Primary [facility]* Diagnosis Chronic low back pain with sciatica, sciatica laterality unspecified, unspecified back pain laterality documented in this encounter [facility] note* Diagnosis Chronic obstructive pulmonary disease, unspecified COPD type (HCC) documented in this encounter [facility] note* Diagnosis Stage 3 severe COPD by GOLD classification (HCC)- Primary Chronic respiratory failure with hypoxia (HCC) Chronic respiratory failure documented in this encounter [facility] note* Diagnosis Stage 3 severe COPD by GOLD classification ([facility])- Primary Chronic low back pain with sciatica, sciatica laterality unspecified, unspecified back pain laterality Chronic respiratory failure with hypoxia (HCC) Chronic respiratory failure Essential hypertension, benign Generalized anxiety disorder Tobacco use disorder documented in this encounter [facility] note* Diagnosis Chronic obstructive pulmonary disease, unspecified COPD type (HCC) Uncomplicated asthma, unspecified asthma severity, unspecified whether persistent documented in this encounter [facility] note* Diagnosis Esophageal reflux documented in this encounter [facility] note* Diagnosis Generalized osteoarthrosis, involving multiple sites documented in this encounter [facility] note* Diagnosis Generalized osteoarthrosis, involving multiple sites documented in this encounter [facility] note* Diagnosis Screening for colon cancer- Primary Special screening for malignant neoplasms, colon documented in this encounter [facility] note* Diagnosis Chronic low back pain with [...] therapeutic drug monitoring documented in this encounter [facility] note* Diagnosis Thrush, oral Candidiasis of mouth documented in this encounter [facility] note* Diagnosis Encounter for screening mammogram for breast cancer documented in this encounter [facility] note* Diagnosis Onset Date Resolution Status COPD (chronic obstructive pulmonary disease) acute Hypoxia acute Respiratory insufficiency ac tyra Viral URI with cough acute COPD with acute exacerbation [facility] Work Phone: Evaluation note* Diagnosis Obstructive [...] pain laterality [facility]* Diagnosis Chronic low back pain with sciatica, sciatica laterality unspecified, unspecified back pain laterality [facility] Diagnosis Chronic low back pain with sciatica, sciatica laterality unspecified, unspecified back pain laterality Tobacco use disorder [facility]* Diagnosis Bronchitis Bronchitis, not specified as acute or chronic [facility] Diagnosis Generalized osteoarthrosis, involving multiple sites [facility]* Diagnosis Chronic low back pain with sciatica, sciatica laterality unspecified, unspecified back pain laterality [facility]* Diagnosis Stage 3 severe COPD by GOLD classification ([facility])- Primary Generalized osteoarthrosis, involving multiple sites Chronic low back pain with sciatica, sciatica laterality unspecified, unspecified back pain laterality Essential hypertension, benign Tobacco use disorder Dysthymic disorder [facility]* Diagnosis Chronic low back pain with sciatica, sciatica laterality unspecified, unspecified back pain laterality [facility]* Diagnosis Chronic low back pain with sciatica, sciatica laterality unspecified, unspecified back pain laterality Chronic obstructive pulmonary disease, unspecified COPD type (HCC) [facility]* Diagnosis Stage 3 severe COPD by GOLD classification ([facility]) [facility]* Diagnosis Chronic low back pain with sciatica, sciatica laterality unspecified, unspecified back pain laterality [facility]* Diagnosis Oral infection- Primary Other and unspecified diseases of the oral soft tissues [facility]* Diagnosis Chronic low back pain with sciatica, sciatica laterality unspecified, unspecified back pain laterality- Primary Essential hypertension, benign Generalized anxiety disorder Depression, unspecified depression type Gastroesophageal reflux disease without esophagitis Esophageal reflux documented in this encounter [facility] note* Diagnosis Chronic low back pain with sciatica, sciatica laterality unspecified, unspecified back pain laterality Thrush, oral Candidiasis of mouth documented in this encounter [facility] note* Diagnosis Generalized osteoarthrosis, involving multiple sites documented in this encounter [facility] note* Diagnosis Encounter for screening mammogram for breast cancer documented in this encounter [facility] note* Diagnosis Chronic low back pain with sciatica, sciatica laterality unspecified, unspecified back pain laterality documented in this encounter [facility] note* Diagnosis Esophageal reflux documented in this encounter [facility] note* Diagnosis Chronic obstructive pulmonary disease, unspecified [...] colon documented in this encounter [facility] note* Diagnosis Chronic low back pain with sciatica, sciatica laterality unspecified, unspecified back pain laterality documented in this encounter [facility] note* Diagnosis Onset Date Resolution Status Admit Date Anxiety and depression acute Ju 2024 4:06am COPD with acute exacerbation chronic September 29, 2024 4:06am [facility] Work Phone: Evaluation note* Diagnosis Chronic low back pain with sciatica, sciatica laterality unspecified, unspecified back pain laterality documented in this encounter [facility] note* Diagnosis Stage 3 severe COPD by GOLD classification ([facility]) Chronic low back pain with sciatica, sciatica laterality unspecified, unspecified back pain laterality documented in this encounter [facility] note* Diagnosis Stage 3 severe COPD by GOLD classification (HCC)- Primary Chronic low back pain with sciatica, sciatica laterality unspecified, unspecified back pain laterality Essential hypertension, benign Tobacco use disorder Generalized anxiety disorder Aortic valve stenosis, etiology of cardiac valve disease unspecified documented in this encounter [facility] note* Diagnosis Stage 3 severe COPD by GOLD classification ([facility])- Primary Generalized osteoarthrosis, involving multiple sites Generalized anxiety disorder Chronic low back pain with sciatica, sciatica laterality unspecified, unspecified back pain laterality documented in this encounter [facility] note* Diagnosis Stage 3 severe COPD by GOLD classification (HCC)- Primary Chronic low back pain with sciatica, sciatica laterality unspecified, unspecified back pain laterality documented in this encounter [facility] note* Diagnosis NO SHOW- Primary Stage 3 severe COPD by GOLD classification (HCC) Generalized osteoarthrosis, involving multiple sites Generalized anxiety disorder Chronic low back pain with sciatica, sciatica laterality unspecified, unspecified back pain laterality documented in this encounter [facility] note* Diagnosis Stage 3 severe COPD by GOLD classification (HCC) documented in this encounter [facility] note* Diagnosis No-show for appointment- Primary Stage 3 severe COPD by GOLD classification (HCC) Chronic low back pain with sciatica, sciatica laterality unspecified, unspecified back pain laterality documented in this encounter [facility] note* Diagnosis Palliative care by specialist- Primary [...] Other chronic pain 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 documented in this encounter [facility] note* Diagnosis Stage 3 severe COPD by GOLD classification (HCC) documented in this encounter [facility] note* Diagnosis Severe aortic stenosis- Primary Aortic valve disorders Chronic respiratory failure with hypoxia (HCC) [facility] Diagnosis Preop cardiovascular exam- Primary Pre-operative cardiovascular examination Nonrheumatic aortic valve stenosis Preop cardiovascular exam- Primary Pre-operative cardiovascular examination [facility]* Diagnosis Itching- Primary Unspecified pruritic disorder documented in this encounter [facility] note* Diagnosis Preop cardiovascular exam- Primary Pre-operative cardiovascular examination Preop cardiovascular exam Pre-operative cardiovascular examination Aortic valve stenosis, etiology of cardiac valve disease unspecified Preop cardiovascular exam Pre-operative cardiovascular examination documented in this encounter [facility] HealthHistory and physical note Author José Smith [facility] July 20, 2023 4:55am Note Date/Time July 20, 2023 4:2 4am [facility] Medical Records Department [address] [place] [address] H&P Exam - Hospitalist 07/20/23 0406 MR#: [id number] Acct: [id number] Name: DENIA GONZALEZ Rep #:[id number] : 1955 68 From: José Abebe DO PCP: Dr. Yoseph Fall MD Status:AD M IN Location: [facility] [id number] HPI - General General Date of Admission: [...] anxiety, GERD and OA who presents to [facility] ER complaining of shortness of [...] exacerbation of COPD with clinical evidence of obynn-sa-oodvnyy hypoxic respiratory insufficiency likely due to recent [...] % (Auto) 67.5, Lymph % (Auto) 23.7, Burt% (Auto) 7.6, Eos % (Auto) 0.6, Baso [...] needed nebulizers. Give Tylenol as needed for ygau-ep-ngqhiqtp(level 1- 5/10) pain or fever. Continue Percocet prn for severe (level 6-10/10) pain. Tobacco cessation will be strongly encouraged with nicotine patch offeredto control cravings. 2. Viral URI likely triggering #1 - Check viral respiratory panel and placed oncontact and droplet precautions until confirmed negative. 3. Lkchz-ca-oudtpdw hypoxic respiratory insufficiency arising from #1 & [...] 55 minutes. Charges/Coding Visit Charges Inpatient E&M: 03512 Init Hosp L2 07/20/23 0455 <Electronically signed by José Cunningham DO> Cosigner Signature (if applicable): CC: Dr. José Cunningham DO; Dr. Yoseph Fall MD~ Signed [facility] Work Phone: History and physical note Author Dionne Porter [facility] Note Date/Time September 29, 2024 4:32a m [facility] Medical Records Department [address] [place] [address] H&P Exam - Hospitalist 09/29/24 0403 MR#: [id number] Acct: [id number] Name: DENIA GONZALEZ Rep #:[id number] : 1955 69 From: Dionne Porter MD [...] allergic rhinitis, HTN who presents to the [facility] ED on 09/29/2024 with history [...] 78.5 H, Lymph % (Auto) 13.2 L, Burt % (Auto) 6.9, Eos % (Auto) 0.7, [...] allergic rhinitis, HTN who presents to the [facility] ED on 09/29/2024 with history [...] Code status. Charges/Coding Visit Charges Inpatient E&M: 60920 Init Hosp L3 09/29/24 0433 <Electronically signed by Dionne Porter MD> Cosigner Signature (if applicable): CC: Dr. Dionne Porter MD; Dr. Yoseph Fall MD~ Signed [facility] Work Phone: History and physical note Author Dionne Porter [facility] Note Date/Time December 26, 2024 8:21pm [facility] Medical Records Department [address] [place] [address] H&P Exam - Hospitalist 12/26/241955 MR#: [id number] Acct: [id number] Name: DENIA GONZALEZ Rep #:[id number] : 1955 69 From: Dionne Porter MD PCP: Dr. Yoseph Fall MD Status:AD M IN Location: [facility] [id number]- [id number] HPI - General General Date of [...] allergic rhinitis, HTN who presents to the [facility] ED on 12/26/2024 with history [...] supposed to have a heart cath at [facility] in the next several weeks because of [...] BUN/creatinine 16/0.64, GFR 96, glucose 112, initial qnltabtl18 with repeat delta 25, chest x-ray with [...] 83.2 H, Lymph % (Auto) 11.3 L, Burt % (Auto) 4.5, Eos % (Auto) 0.1, [...] abnormality. No significant change Reading [id number] Assessment & Plan Assessment/Plan (1) COPD with acute exacerbation: PLAN: Plan The patient is a 69 y/o F w/ PMHx: Valvular Heart Disease, GERD, RLS, Anxiety and Depression, Former tobacco use, Former EtOH Abuse, Hx Non-small cell lung cancer status post right lung lobectomy remotely 2003, COPD/Asthma with Chronic Hypoxic Respiratory Failure (2L NC) with allergic rhinitis, HTN who presents to the [facility] ED on 12/26/2024 with history [...] with plan as noted for evaluation at [facility] with upcoming cardiac catheterization for consideration of [...] 16 minutes. Charges/Coding Visit Charges Inpatient E&M: 26001 Init Hosp L3 Procedures Hospitalists Procedures: 44922 Advncd Care Plan 30 Min 12/26/242020 <Electronically signed by Dionne Porter MD> Cosigner Signature (if applicable): CC: Dr. Dionne Porter MD; Dr. Yoseph Fall MD~ Signed [facility] Work Phone: Hospital Discharge instructions [...] needed for your shortness of breath and wheezing.[facility] Work Phone: Hospital Discharge instructionsAdditional Instructions DISCHARGE [...] the nearest emergency department Date of Discharge: 01/31/25[facility] Work Phone: Progress note Author Ingris Irwin [facility] Note Date/Time February 08, 2025 1 0:30am [facility] [address] [place] [address] OFFICE VISIT Date of Service: 02/08/25 MR#: [id number] Acct: [id number] Name: DENIA GONZALEZ Rep #: [id number] : 1955 Provider: STEFANIE Irwin Age/Sex: 69/F Location: [facility] Status: Signed HPI HPI History of Present Illness Details: Denia Gonzalez is a 69-year-old female who presents to the office today for a cardiovascular follow-up visit. She was admitted to [facility] on September 29, 2024 and [...] She had undergone a cardiac catheterization at [facility] to evaluate her severe symptomatic aortic stenosis. [...] Rate (L/min) 3 Intake Visit Reasons: S/P ([facility] 01/31) Leadership Intern Required: No Is patient in pain?: No [...] 02/12/25 Rx capsule,extended release OXYGEN - Supplemental ([facility] hypoxia 01/27/25 02/12/25 H istory INFORMATIONAL USE [...] bisacodyl 10 mg rectal suppository 10 mg SD ONCE 02/0802/12/25 History cyanocobalamin (vitamin B-12) 500 500 mcg PO QDAY 01/2402/12/25 History mcg tablet Ejection fraction %: 70 Have you fallen in the past year?: Yes [facility] Medical History Palliative care encounter Acute [...] rate 81 bpm, QT/QTc: 350/421. Unfortunately, patient's retirement does not have Mult[employer]. Discussed with Dr. [...] states she underwent a cardiac catheterization from [facility], and is awaiting a TAVR. Will obtain those records. She will continue to follow-up with [facility], and continue to monitor for any concerning [...] Orders: Orders 12 Lead EKG performed by [facility] 02/08/25 I48.0 - Paroxysmal atrial fibrillation Plan [...] updated, as necessary. 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 Shea Coding Level of Care Code Off [...] 02/12/25 1120 <Electronically signed by Ingris Irwin FORMING MILL OPERATOR FORMING MILL OPERATOR-C> Date _ Ingris Dc FORMING MILL OPERATOR FORMING MILL OPERATOR-C Cosigner Signature: Date (if applicable) CC: ~ [facility] Work Phone: Reason for referral (narrative)* Outpatient Procedure (Routine) - Pending Review Specialty Diagnoses / Procedures Referred By Contac t Referred To Contact [facility] Diagnoses Chronic obstructive pulmonary disease, unspecified COPD type (HCC) Procedures OXIMETRY WITH AMBULATION NONINVASIVE EAR/PULSE OXIMETRY MULTIPLE Michelle Marie MD [address] [place] [address] Respiratory [place] [address] [place] [id number] Referral ID Status Reason Start Date Expiration Date Visits Requested Visits Authorized [id number] Pending Review Auto-Generat ed Referral 01/13/2022 02/12/2023 1 1 [facility] for referral (narrative)* Diagnostic Procedure Only (Routine) - Pending Review Specialty Diagnoses / Procedures Referred By Contac t Referred To Contact [facility] Diagnoses Encounter for screening mammogram for breast cancer Procedures MICKIE SCREENING SCREENING MAMMOGRAPHY BI 2-VIEW BREAST INC CAD Yoseph Fall MD [address] [place] [address] [facility] [address] [place] [id number] Referral ID Status Reason Start Date Expiration Date Visits Requested Visits Authorized [id number] Pending Review Auto-Generat ed Referral 06/16/2023 07/15/2024 1 1 [facility] for referral (narrative)No reason for referral information availableWOhio[facility] Work Phone: Reason for visit Narrative* Auth/Cert (Routine) Specialty Diagnoses / Procedures Referred By Contac t Referred To Contact Diagnoses Preop cardiovascular exam Preop cardiovascular exam [Z01.810] Procedures SD R & L HRT CATH WINJX HRT ART& L VENTR IMG Left and right heart cath / coronary angiography Zaria Shea MD [address] [place] [address] Phone: tel: fax: Referral ID Status Reason Start Date Expiration Date Visits Re quested Visits Authorized [id number]/15/2024 1 1 [email or web address] Advance Directives Documents on File Type Date Recorded Patient Air Reduction Equipment Operator Expl anation Advance Directive(s) 08/04/2016 2:40 PM Advance Directive(s) 08/04/2016 3:52 PM Advance Directive(s) 06/21/2016 6:38 PM Documents on File Type Date Recorded Patient Air Reduction Equipment Operator Expl anation Advance Directive(s) 08/04/2016 3:52 PM Documents on File Type Date Recorded Patient Air Reduction Equipment Operator Expl anation Advance Directive(s) 08/04/2016 3:52 PM Advance Directive Response Recorded Date/ Time Advance Directives No May 08, 2016 10:32am Living Will No July 20, 2023 5:03am Power of Trading Manager No July 19 5:03am Advance Directive Response Recorded Date/ Time Do you have a Healthcare Power of Trading Manager? No September 29, 2024 2:42am Advance Directives No May 08, 2016 10:32am Advance Directive Response Recorded Date/ Time Do you have a Healthcare Power of Trading Manager? No September 29, 2024 5:11am Advance Directives No May 08, 2016 10:32am Advance Directive Response Recorded Date/ Time Do you have a Healthcare Power of Trading Manager? No September 29, 2024 5:11am Do you have a Healthcare Power of Trading Manager? No December 26, 2024 4:37pm Advance Directives No May 08, 2016 10:32am Advance Directive Response Recorded Date/ Time Do you have a Healthcare Power of Trading Manager? No September 29, 2024 5:11am Do you have a Healthcare Power of Trading Manager? No December 26, 2024 9:29pm Advance Directives No May 08, 2016 10:32am Date Activated Date Inactivated Comments 01/05/2025 9:00 AM 01/05/2025 5:58 PM Date Activated Date Inactivated Comments 01/05/2025 9:00 AM 01/05/2025 5:58 PM Advance Directive Response Recorded Date/ Time Do you have a Healthcare Power of Trading Manager? No September 29, 2024 5:11am Do you have a Healthcare Power of Trading Manager? No December 26, 2024 9:29pm Do you have a Healthcare Power of Trading Manager? No January 25, 2025 11:58am Advance Directives No May 08, 2016 10:32am Advance Directive Response Recorded Date/ Time Do you have a Healthcare Power of Trading Manager? No December 26, 2024 9:29pm Do you have a Healthcare Power of Trading Manager? No January 25, 2025 11:58am Advance Directives No May 08, 2016 10:32am Chief Complaint and Reason for Visit Chief Complaint ACUTE EXACERBATION O F COPD WITH [id number] Reason for Visit COPD (chronic obstru ctive pulmonary disease) Hypoxia Respiratory insufficiency Viral URI with cough COPD with acute exacerbation Chief Complaint ACUTE EXACERBATION O F COPD WITH [id number] ACUTE EXACERBATION OF COPD WITH [id number] ACUTE EXACERBATION OF COPD WITH [id number] Reason for Visit COPD (chronic obstru ctive [...] EXACERBATION October 09, 2024 3:58 pm S/P [facility] 10/09 New AFIB/Severe October 12:58pm Reason [...] EXACERBATION October 09, 2024 3:58 pm S/P [facility] /16 New AFIB/Severe October 12:58pm COPD EXACERBATION, [...] EXACERBATION October 09, 2024 3:58 pm S/P [facility] 10/09 New AFIB/Severe October 12:58pm COPD [...] EXACERBATION October 09, 2024 3:58 pm S/P [facility] 10/09 New AFIB/Severe October 12:58pm COPD [...] EXACERBATION October 09, 2024 3:58 pm S/P [facility] 6/16 New AFIB/Severe October 12:58pm COPD EXACERBATION, [...] EXACERBATION October 09, 2024 3:58 pm S/P [facility] 16 New AFIB/Severe October 12:58pm COPD EXACERBATION, [...] EXACERBATION October 09, 2024 3:58 pm S/P [facility] 16 New AFIB/Severe October 12:58pm COPD EXACERBATION, [...] 10 :04am Chief Complaint Admit Date S/P [facility] 10/09 New AFIB/Severe October 12:58pm COPD [...] WORK February 01, 2025 5: 00am S/P ([facility] 01/31) February 08, 2025 9 :23am PENITENTIARY LAB WORK February 13, 2025 4:00am Reason [...] involving multiple sites Iman Person APRN.CNP [address] [place] [address] Referral ID Status Reason Start Date Expiration Date V isits Requested Visits Authorized [id number] Pending Review 1 1 Specialty Diagnoses / Procedures Referred By Contac t Referred To Contact Diagnoses Generalized osteoarthrosis, involving multiple sites Yoseph Fall MD [address] [place] [address] Referral ID Status Reason Start Date Expiration Date V isits Requested Visits Authorized [id number] Pending Review 1 1 Referral ID Status Reason Start Date Expiration Date V isits Requested Visits Authorized [id number] Pending Review 1 1 Summary Purpose Additional Source Comments Source Comments (unrecognize d section and content) In the event this informatio n is protected by the [facility] Confidentiality of Alcohol and Drug Abuse Patient Records regulations: The Federal rules restrict any use of the information to criminally investigate or prosecute any alcohol or drug abuse patient.[facility] the event this information is protected by the Federal Confidentiality of Alcohol and Drug Abuse Patient Records regulations: The Federal rules restrict any use of the information to criminally investigate or prosecute any alcohol or drug abuse patient.[facility] HospitalIn the event this information is protected by the Federal Confidentiality of Alcohol and Drug Abuse Patient Records regulations: The Federal rules restrict any use of the information to criminally investigate or prosecute any alcohol or drug abuse patient.[facility] HospitalIn the event this information is protected by the Federal Confidentiality of Alcohol and Drug Abuse Patient Records regulations: The Federal rules restrict any use of the information to criminally investigate or prosecute any alcohol or drug abuse patient.[facility] HospitalIn the event this information is protected by the Federal Confidentiality of Alcohol and Drug Abuse Patient Records regulations: The Federal rules restrict any use of the information to criminally investigate or prosecute any alcohol or drug abuse patient.[facility] HospitalIn the event this information is protected by the Federal Confidentiality of Alcohol and Drug Abuse Patient Records regulations: The Federal rules restrict any use of the information to criminally investigate or prosecute any alcohol or drug abuse patient.[facility] HospitalIn the event this information is protected by the Federal Confidentiality of Alcohol and Drug Abuse Patient Records regulations: The Federal rules restrict any use of the information to criminally investigate or prosecute any alcohol or drug abuse patient.[facility] HospitalIn the event this information is protected by the Federal Confidentiality of Alcohol and Drug Abuse Patient Records regulations: The Federal rules restrict any use of the information to criminally investigate or prosecute any alcohol or drug abuse patient.[facility] HospitalIn the event this information is protected by the Federal Confidentiality of Alcohol and Drug Abuse Patient Records regulations: The Federal rules restrict any use of the information to criminally investigate or prosecute any alcohol or drug abuse patient.[facility] HospitalIn the event this information is protected by the Federal Confidentiality of Alcohol and Drug Abuse Patient Records regulations: The Federal rules restrict any use of the information to criminally investigate or prosecute any alcohol or drug abuse patient.[facility] HospitalIn the event this information is protected by the Federal Confidentiality of Alcohol and Drug Abuse Patient Records regulations: The Federal rules restrict any use of the information to criminally investigate or prosecute any alcohol or drug abuse patient.[facility] HospitalIn the event this information is protected by the Federal Confidentiality of Alcohol and Drug Abuse Patient Records regulations: The Federal rules restrict any use of the information to criminally investigate or prosecute any alcohol or drug abuse patient.[facility] HospitalIn the event this information is protected by the Federal Confidentiality of Alcohol and Drug Abuse Patient Records regulations: The Federal rules restrict any use of the information to criminally investigate or prosecute any alcohol or drug abuse patient.[facility] HospitalIn the event this information is protected by the Federal Confidentiality of Alcohol and Drug Abuse Patient Records regulations: The Federal rules restrict any use of the information to criminally investigate or prosecute any alcohol or drug abuse patient.[facility] HospitalIn the event this information is protected by the Federal Confidentiality of Alcohol and Drug Abuse Patient Records regulations: The Federal rules restrict any use of the information to criminally investigate or prosecute any alcohol or drug abuse patient.[facility] HospitalIn the event this information is protected by the Federal Confidentiality of Alcohol and Drug Abuse Patient Records regulations: The Federal rules restrict any use of the information to criminally investigate or prosecute any alcohol or drug abuse patient.[facility] HospitalIn the event this information is protected by the Federal Confidentiality of Alcohol and Drug Abuse Patient Records regulations: The Federal rules restrict any use of the information to criminally investigate or prosecute any alcohol or drug abuse patient.[facility] HospitalIn the event this information is protected by the Federal Confidentiality of Alcohol and Drug Abuse Patient Records regulations: The Federal rules restrict any use of the information to criminally investigate or prosecute any alcohol or drug abuse patient.[facility] HospitalIn the event this information is protected by the Federal Confidentiality of Alcohol and Drug Abuse Patient Records regulations: The Federal rules restrict any use of the information to criminally investigate or prosecute any alcohol or drug abuse patient.[facility] HospitalIn the event this information is protected by the Federal Confidentiality of Alcohol and Drug Abuse Patient Records regulations: The Federal rules restrict any use of the information to criminally investigate or prosecute any alcohol or drug abuse patient.[facility] HospitalIn the event this information is protected by the Federal Confidentiality of Alcohol and Drug Abuse Patient Records regulations: The Federal rules restrict any use of the information to criminally investigate or prosecute any alcohol or drug abuse patient.[facility] HospitalIn the event this information is protected by the Federal Confidentiality of Alcohol and Drug Abuse Patient Records regulations: The Federal rules restrict any use of the information to criminally investigate or prosecute any alcohol or drug abuse patient.[facility] HospitalIn the event this information is protected by the Federal Confidentiality of Alcohol and Drug Abuse Patient Records regulations: The Federal rules restrict any use of the information to criminally investigate or prosecute any alcohol or drug abuse patient.[facility] HospitalIn the event this information is protected by the Federal Confidentiality of Alcohol and Drug Abuse Patient Records regulations: The Federal rules restrict any use of the information to criminally investigate or prosecute any alcohol or drug abuse patient.[facility] HospitalIn the event this information is protected by the Federal Confidentiality of Alcohol and Drug Abuse Patient Records regulations: The Federal rules restrict any use of the information to criminally investigate or prosecute any alcohol or drug abuse patient.[facility] HospitalIn the event this information is protected by the Federal Confidentiality of Alcohol and Drug Abuse Patient Records regulations: The Federal rules restrict any use of the information to criminally investigate or prosecute any alcohol or drug abuse patient.[facility]In the event this information is protected by the Federal Confidentiality of Alcohol and Drug Abuse Patient Records regulations: The Federal rules restrict any use of the information to criminally investigate or prosecute any alcohol or drug abuse patient.[facility] HospitalIn the event this information is protected by the Federal Confidentiality of Alcohol and Drug Abuse Patient Records regulations: The Federal rules restrict any use of the information to criminally investigate or prosecute any alcohol or drug abuse patient.[facility]In the event this information is protected by the Federal Confidentiality of Alcohol and Drug Abuse Patient Records regulations: The Federal rules restrict any use of the information to criminally investigate or prosecute any alcohol or drug abuse patient.[facility] HospitalIn the event this information is protected by the Federal Confidentiality of Alcohol and Drug Abuse Patient Records regulations: The Federal rules restrict any use of the information to criminally investigate or prosecute any alcohol or drug abuse patient.[facility] HospitalIn the event this information is protected by the Federal Confidentiality of Alcohol and Drug Abuse Patient Records regulations: The Federal rules restrict any use of the information to criminally investigate or prosecute any alcohol or drug abuse patient.[facility] HospitalIn the event this information is protected by the Federal Confidentiality of Alcohol and Drug Abuse Patient Records regulations: The Federal rules restrict any use of the information to criminally investigate or prosecute any alcohol or drug abuse patient.[facility] HospitalIn the event this information is protected by the Federal Confidentiality of Alcohol and Drug Abuse Patient Records regulations: The Federal rules restrict any use of the information to criminally investigate or prosecute any alcohol or drug abuse patient.[facility] HospitalIn the event this information is protected by the Federal Confidentiality of Alcohol and Drug Abuse Patient Records regulations: The Federal rules restrict any use of the information to criminally investigate or prosecute any alcohol or drug abuse patient.[facility] HospitalIn the event this information is protected by the Federal Confidentiality of Alcohol and Drug Abuse Patient Records regulations: The Federal rules restrict any use of the information to criminally investigate or prosecute any alcohol or drug abuse patient.[facility] HospitalIn the event this information is protected by the Federal Confidentiality of Alcohol and Drug Abuse Patient Records regulations: The Federal rules restrict any use of the information to criminally investigate or prosecute any alcohol or drug abuse patient.[facility] HospitalIn the event this information is protected by the Federal Confidentiality of Alcohol and Drug Abuse Patient Records regulations: The Federal rules restrict any use of the information to criminally investigate or prosecute any alcohol or drug abuse patient.[facility] HospitalIn the event this information is protected by the Federal Confidentiality of Alcohol and Drug Abuse Patient Records regulations: The Federal rules restrict any use of the information to criminally investigate or prosecute any alcohol or drug abuse patient.[facility] HospitalIn the event this information is protected by the Federal Confidentiality of Alcohol and Drug Abuse Patient Records regulations: The Federal rules restrict any use of the information to criminally investigate or prosecute any alcohol or drug abuse patient.[facility] HospitalIn the event this information is protected by the Federal Confidentiality of Alcohol and Drug Abuse Patient Records regulations: The Federal rules restrict any use of the information to criminally investigate or prosecute any alcohol or drug abuse patient.[facility] HospitalIn the event this information is protected by the Federal Confidentiality of Alcohol and Drug Abuse Patient Records regulations: The Federal rules restrict any use of the information to criminally investigate or prosecute any alcohol or drug abuse patient.[facility] HospitalIn the event this information is protected by the Federal Confidentiality of Alcohol and Drug Abuse Patient Records regulations: The Federal rules restrict any use of the information to criminally investigate or prosecute any alcohol or drug abuse patient.[facility] HospitalIn the event this information is protected by the Federal Confidentiality of Alcohol and Drug Abuse Patient Records regulations: The Federal rules restrict any use of the information to criminally investigate or prosecute any alcohol or drug abuse patient.[facility] HospitalIn the event this information is protected by the Federal Confidentiality of Alcohol and Drug Abuse Patient Records regulations: The Federal rules restrict any use of the information to criminally investigate or prosecute any alcohol or drug abuse patient.[facility] HospitalIn the event this information is protected by the Federal Confidentiality of Alcohol and Drug Abuse Patient Records regulations: The Federal rules restrict any use of the information to criminally investigate or prosecute any alcohol or drug abuse patient.[facility] HospitalIn the event this information is protected by the Federal Confidentiality of Alcohol and Drug Abuse Patient Records regulations: The Federal rules restrict any use of the information to criminally investigate or prosecute any alcohol or drug abuse patient.[facility] HospitalIn the event this information is protected by the Federal Confidentiality of Alcohol and Drug Abuse Patient Records regulations: The Federal rules restrict any use of the information to criminally investigate or prosecute any alcohol or drug abuse patient.[facility] HospitalIn the event this information is protected by the Federal Confidentiality of Alcohol and Drug Abuse Patient Records regulations: The Federal rules restrict any use of the information to criminally investigate or prosecute any alcohol or drug abuse patient.[facility] HospitalIn the event this information is protected by the Federal Confidentiality of Alcohol and Drug Abuse Patient Records regulations: The Federal rules restrict any use of the information to criminally investigate or prosecute any alcohol or drug abuse patient.[facility] HospitalIn the event this information is protected by the Federal Confidentiality of Alcohol and Drug Abuse Patient Records regulations: The Federal rules restrict any use of the information to criminally investigate or prosecute any alcohol or drug abuse patient.[facility] HospitalIn the event this information is protected by the Federal Confidentiality of Alcohol and Drug Abuse Patient Records regulations: The Federal rules restrict any use of the information to criminally investigate or prosecute any alcohol or drug abuse patient.[facility] HospitalIn the event this information is protected by the Federal Confidentiality of Alcohol and Drug Abuse Patient Records regulations: The Federal rules restrict any use of the information to criminally investigate or prosecute any alcohol or drug abuse patient.[facility] HospitalIn the event this information is protected by the Federal Confidentiality of Alcohol and Drug Abuse Patient Records regulations: The Federal rules restrict any use of the information to criminally investigate or prosecute any alcohol or drug abuse patient.[facility] HospitalIn the event this information is protected by the Federal Confidentiality of Alcohol and Drug Abuse Patient Records regulations: The Federal rules restrict any use of the information to criminally investigate or prosecute any alcohol or drug abuse patient.[facility] HospitalIn the event this information is protected by the Federal Confidentiality of Alcohol and Drug Abuse Patient Records regulations: The Federal rules restrict any use of the information to criminally investigate or prosecute any alcohol or drug abuse patient.[facility] HospitalIn the event this information is protected by the Federal Confidentiality of Alcohol and Drug Abuse Patient Records regulations: The Federal rules restrict any use of the information to criminally investigate or prosecute any alcohol or drug abuse patient.[facility] HospitalIn the event this information is protected by the Federal Confidentiality of Alcohol and Drug Abuse Patient Records regulations: The Federal rules restrict any use of the information to criminally investigate or prosecute any alcohol or drug abuse patient.[facility] HospitalIn the event this information is protected by the Federal Confidentiality of Alcohol and Drug Abuse Patient Records regulations: The Federal rules restrict any use of the information to criminally investigate or prosecute any alcohol or drug abuse patient.[facility] HospitalIn the event this information is protected by the Federal Confidentiality of Alcohol and Drug Abuse Patient Records regulations: The Federal rules restrict any use of the information to criminally investigate or prosecute any alcohol or drug abuse patient.[facility] HospitalIn the event this information is protected by the Federal Confidentiality of Alcohol and Drug Abuse Patient Records regulations: The Federal rules restrict any use of the information to criminally investigate or prosecute any alcohol or drug abuse patient.[facility] HospitalIn the event this information is protected by the Federal Confidentiality of Alcohol and Drug Abuse Patient Records regulations: The Federal rules restrict any use of the information to criminally investigate or prosecute any alcohol or drug abuse patient.[facility] HospitalIn the event this information is protected by the Federal Confidentiality of Alcohol and Drug Abuse Patient Records regulations: The Federal rules restrict any use of the information to criminally investigate or prosecute any alcohol or drug abuse patient.[facility] HospitalIn the event this information is protected by the Federal Confidentiality of Alcohol and Drug Abuse Patient Records regulations: The Federal rules restrict any use of the information to criminally investigate or prosecute any alcohol or drug abuse patient.[facility] HospitalIn the event this information is protected by the Federal Confidentiality of Alcohol and Drug Abuse Patient Records regulations: The Federal rules restrict any use of the information to criminally investigate or prosecute any alcohol or drug abuse patient.[facility] HospitalIn the event this information is protected by the Federal Confidentiality of Alcohol and Drug Abuse Patient Records regulations: The Federal rules restrict any use of the information to criminally investigate or prosecute any alcohol or drug abuse patient.[facility] HospitalIn the event this information is protected by the Federal Confidentiality of Alcohol and Drug Abuse Patient Records regulations: The Federal rules restrict any use of the information to criminally investigate or prosecute any alcohol or drug abuse patient.[facility] HospitalIn the event this information is protected by the Federal Confidentiality of Alcohol and Drug Abuse Patient Records regulations: The Federal rules restrict any use of the information to criminally investigate or prosecute any alcohol or drug abuse patient.[facility] HospitalIn the event this information is protected by the Federal Confidentiality of Alcohol and Drug Abuse Patient Records regulations: The Federal rules restrict any use of the information to criminally investigate or prosecute any alcohol or drug abuse patient.[facility] HospitalIn the event this information is protected by the Federal Confidentiality of Alcohol and Drug Abuse Patient Records regulations: The Federal rules restrict any use of the information to criminally investigate or prosecute any alcohol or drug abuse patient.[facility] HospitalIn the event this information is protected by the Federal Confidentiality of Alcohol and Drug Abuse Patient Records regulations: The Federal rules restrict any use of the information to criminally investigate or prosecute any alcohol or drug abuse patient.[facility] HospitalIn the event this information is protected by the Federal Confidentiality of Alcohol and Drug Abuse Patient Records regulations: The Federal rules restrict any use of the information to criminally investigate or prosecute any alcohol or drug abuse patient.[facility] HospitalIn the event this information is protected by the Federal Confidentiality of Alcohol and Drug Abuse Patient Records regulations: The Federal rules restrict any use of the information to criminally investigate or prosecute any alcohol or drug abuse patient.[facility] HospitalIn the event this information is protected by the Federal Confidentiality of Alcohol and Drug Abuse Patient Records regulations: The Federal rules restrict any use of the information to criminally investigate or prosecute any alcohol or drug abuse patient.[facility] HospitalIn the event this information is protected by the Federal Confidentiality of Alcohol and Drug Abuse Patient Records regulations: The Federal rules restrict any use of the information to criminally investigate or prosecute any alcohol or drug abuse patient.[facility] HospitalIn the event this information is protected by the Federal Confidentiality of Alcohol and Drug Abuse Patient Records regulations: The Federal rules restrict any use of the information to criminally investigate or prosecute any alcohol or drug abuse patient.[facility] HospitalIn the event this information is protected by the Federal Confidentiality of Alcohol and Drug Abuse Patient Records regulations: The Federal rules restrict any use of the information to criminally investigate or prosecute any alcohol or drug abuse patient.[facility] HospitalIn the event this information is protected by the Federal Confidentiality of Alcohol and Drug Abuse Patient Records regulations: The Federal rules restrict any use of the information to criminally investigate or prosecute any alcohol or drug abuse patient.[facility] HospitalIn the event this information is protected by the Federal Confidentiality of Alcohol and Drug Abuse Patient Records regulations: The Federal rules restrict any use of the information to criminally investigate or prosecute any alcohol or drug abuse patient.[facility] HospitalIn the event this information is protected by the Federal Confidentiality of Alcohol and Drug Abuse Patient Records regulations: The Federal rules restrict any use of the information to criminally investigate or prosecute any alcohol or drug abuse patient.[facility] HospitalIn the event this information is protected by the Federal Confidentiality of Alcohol and Drug Abuse Patient Records regulations: The Federal rules restrict any use of the information to criminally investigate or prosecute any alcohol or drug abuse patient.[facility] HospitalIn the event this information is protected by the Federal Confidentiality of Alcohol and Drug Abuse Patient Records regulations: The Federal rules restrict any use of the information to criminally investigate or prosecute any alcohol or drug abuse patient.[facility] HospitalIn the event this information is protected by the Federal Confidentiality of Alcohol and Drug Abuse Patient Records regulations: The Federal rules restrict any use of the information to criminally investigate or prosecute any alcohol or drug abuse patient.[facility] HospitalIn the event this information is protected by the Federal Confidentiality of Alcohol and Drug Abuse Patient Records regulations: The Federal rules restrict any use of the information to criminally investigate or prosecute any alcohol or drug abuse patient.[facility] HospitalIn the event this information is protected by the Federal Confidentiality of Alcohol and Drug Abuse Patient Records regulations: The Federal rules restrict any use of the information to criminally investigate or prosecute any alcohol or drug abuse patient.[facility] HospitalIn the event this information is protected by the Federal Confidentiality of Alcohol and Drug Abuse Patient Records regulations: The Federal rules restrict any use of the information to criminally investigate or prosecute any alcohol or drug abuse patient.[facility] HospitalIn the event this information is protected by the Federal Confidentiality of Alcohol and Drug Abuse Patient Records regulations: The Federal rules restrict any use of the information to criminally investigate or prosecute any alcohol or drug abuse patient.[facility] HospitalIn the event this information is protected by the Federal Confidentiality of Alcohol and Drug Abuse Patient Records regulations: The Federal rules restrict any use of the information to criminally investigate or prosecute any alcohol or drug abuse patient.[facility] HospitalIn the event this information is protected by the Federal Confidentiality of Alcohol and Drug Abuse Patient Records regulations: The Federal rules restrict any use of the information to criminally investigate or prosecute any alcohol or drug abuse patient.[facility] HospitalIn the event this information is protected by the Federal Confidentiality of Alcohol and Drug Abuse Patient Records regulations: The Federal rules restrict any use of the information to criminally investigate or prosecute any alcohol or drug abuse patient.[facility] HospitalIn the event this information is protected by the Federal Confidentiality of Alcohol and Drug Abuse Patient Records regulations: The Federal rules restrict any use of the information to criminally investigate or prosecute any alcohol or drug abuse patient.[facility] HospitalIn the event this information is protected by the Federal Confidentiality of Alcohol and Drug Abuse Patient Records regulations: The Federal rules restrict any use of the information to criminally investigate or prosecute any alcohol or drug abuse patient.[facility] HospitalIn the event this information is protected by the Federal Confidentiality of Alcohol and Drug Abuse Patient Records regulations: The Federal rules restrict any use of the information to criminally investigate or prosecute any alcohol or drug abuse patient.[facility] HospitalIn the event this information is protected by the Federal Confidentiality of Alcohol and Drug Abuse Patient Records regulations: The Federal rules restrict any use of the information to criminally investigate or prosecute any alcohol or drug abuse patient.[facility] HospitalIn the event this information is protected by the Federal Confidentiality of Alcohol and Drug Abuse Patient Records regulations: The Federal rules restrict any use of the information to criminally investigate or prosecute any alcohol or drug abuse patient.[facility] HospitalIn the event this information is protected by the Federal Confidentiality of Alcohol and Drug Abuse Patient Records regulations: The Federal rules restrict any use of the information to criminally investigate or prosecute any alcohol or drug abuse patient.[facility] HospitalIn the event this information is protected by the Federal Confidentiality of Alcohol and Drug Abuse Patient Records regulations: The Federal rules restrict any use of the information to criminally investigate or prosecute any alcohol or drug abuse patient.[facility] HospitalIn the event this information is protected by the Federal Confidentiality of Alcohol and Drug Abuse Patient Records regulations: The Federal rules restrict any use of the information to criminally investigate or prosecute any alcohol or drug abuse patient.[facility] HospitalIn the event this information is protected by the Federal Confidentiality of Alcohol and Drug Abuse Patient Records regulations: The Federal rules restrict any use of the information to criminally investigate or prosecute any alcohol or drug abuse patient.[facility] HospitalIn the event this information is protected by the Federal Confidentiality of Alcohol and Drug Abuse Patient Records regulations: The Federal rules restrict any use of the information to criminally investigate or prosecute any alcohol or drug abuse patient.[facility] HospitalIn the event this information is protected by the Federal Confidentiality of Alcohol and Drug Abuse Patient Records regulations: The Federal rules restrict any use of the information to criminally investigate or prosecute any alcohol or drug abuse patient.[facility] HospitalIn the event this information is protected by the Federal Confidentiality of Alcohol and Drug Abuse Patient Records regulations: The Federal rules restrict any use of the information to criminally investigate or prosecute any alcohol or drug abuse patient.[facility] HospitalIn the event this information is protected by the Federal Confidentiality of Alcohol and Drug Abuse Patient Records regulations: The Federal rules restrict any use of the information to criminally investigate or prosecute any alcohol or drug abuse patient.[facility] HospitalIn the event this information is protected by the Federal Confidentiality of Alcohol and Drug Abuse Patient Records regulations: The Federal rules restrict any use of the information to criminally investigate or prosecute any alcohol or drug abuse patient.[facility] HospitalIn the event this information is protected by the Federal Confidentiality of Alcohol and Drug Abuse Patient Records regulations: The Federal rules restrict any use of the information to criminally investigate or prosecute any alcohol or drug abuse patient.[facility] HospitalIn the event this information is protected by the Federal Confidentiality of Alcohol and Drug Abuse Patient Records regulations: The Federal rules restrict any use of the information to criminally investigate or prosecute any alcohol or drug abuse patient.[facility]In the event this information is protected by the Federal Confidentiality of Alcohol and Drug Abuse Patient Records regulations: The Federal rules restrict any use of the information to criminally investigate or prosecute any alcohol or drug abuse patient.[facility] HospitalIn the event this information is protected by the Federal Confidentiality of Alcohol and Drug Abuse Patient Records regulations: The Federal rules restrict any use of the information to criminally investigate or prosecute any alcohol or drug abuse patient.[facility] HospitalIn the event this information is protected by the Federal Confidentiality of Alcohol and Drug Abuse Patient Records regulations: The Federal rules restrict any use of the information to criminally investigate or prosecute any alcohol or drug abuse patient.[facility] HospitalIn the event this information is protected by the Federal Confidentiality of Alcohol and Drug Abuse Patient Records regulations: The Federal rules restrict any use of the information to criminally investigate or prosecute any alcohol or drug abuse patient.[facility] Care Teams (unrecognized sec tion and content) Corporate Development Associate Relationship Specialty Start Date End Date Yoseph Fall MD [address] [place] [address] PCP - General 04/17/09 Corporate Development Associate Relationship Specialty Start Date End Date Yoseph Fall MD [address] [place] [address] PCP - General 04/17/09 Corporate Development Associate Relationship Specialty Start Date End Date Yoseph Fall MD [address] [place] [address] PCP - General 04/17/09 Corporate Development Associate Relationship Specialty Start Date End Date Yoesph Fall MD [address] [place] [address] PCP - General 04/17/09 Corporate Development Associate Relationship Specialty Start Date End Date Yoseph Fall MD [address] [place] [address] PCP - General 04/17/09 Corporate Development Associate Relationship Specialty Start Date End Date Yoseph Fall MD [address] [place] [address] PCP - General 04/17/09 Corporate Development Associate Relationship Specialty Start Date End Date Yoseph Fall MD [address] [facility] [place] [address] PCP - General 04/17/09 Corporate Development Associate Relationship Specialty Start Date End Date Yoseph Fall MD [address] [facility] [place] [address] PCP - General 04/17/09 Corporate Development Associate Relationship Specialty Start Date End Date Yoseph Fall MD [facility] [place] [address] PCP - General 04/17/09 Corporate Development Associate Relationship Specialty Start Date End Date Yoseph Fall MD [address] [place] [address], [place] [address] PCP - General 04/17/09 Corporate Development Associate Relationship Specialty Start Date End Date Yoseph Fall MD [address] [place] [address], [place] [address] PCP - General 04/17/09 Corporate Development Associate Relationship Specialty Start Date End Date Yoseph Fall MD [address] [place] [address], [place] [address] PCP - General 04/17/09 Corporate Development Associate Relationship Specialty Start Date End Date Yoseph Fall MD [address] [place] [address], [place] [address] PCP - General 04/17/09 Corporate Development Associate Relationship Specialty Start Date End Date Yoseph Fall MD [address] [place] [address], [place] [address] PCP - General 04/17/09 Corporate Development Associate Relationship Specialty Start Date End Date Yoseph aFll MD [address] [place] [address], [place] [address] PCP - General 04/17/09 Corporate Development Associate Relationship Specialty Start Date End Date Yoseph Fall MD [address] [place] [address] PCP - General 04/17/09 Corporate Development Associate Relationship Specialty Start Date End Date Yoseph Fall MD [address] [place] [address] PCP - General 04/17/09 Corporate Development Associate Relationship Specialty Start Date End Date Yoseph Fall MD [address] [place] [address] PCP - General 04/17/09 Corporate Development Associate Relationship Specialty Start Date End Date Yoseph Fall MD [address] [place] [address] PCP - General 04/17/09 Corporate Development Associate Relationship Specialty Start Date End Date Yoseph Fall MD [address] [place] [address] PCP - General 04/17/09 Corporate Development Associate Relationship Specialty Start Date End Date Yoseph Fall MD [address] [place] [address] PCP - General 04/17/09 Corporate Development Associate Relationship Specialty Start Date End Date Yoseph Fall MD [address] [place] [address] PCP - General 04/17/09 Corporate Development Associate Relationship Specialty Start Date End Date Yoseph Fall MD [address] [place] [address] PCP - General 04/17/09 Corporate Development Associate Relationship Specialty Start Date End Date Yoseph Fall MD [address] [place] [address] PCP - General 04/17/09 Corporate Development Associate Relationship Specialty Start Date End Date Yoseph Fall MD [address] [place] [address] PCP - General 04/17/09 Corporate Development Associate Relationship Specialty Start Date End Date Yoseph Fall MD [address] [place], [place] [address]251 PCP - General 04/17/09 Team Status: Active Member Role Status Dates Dr. Yoseph Fall MD Primary Care Provider Active Team Status: Active Member Role Status Dates Dr. Yoseph Fall MD Primary Care Provider Active Dr. Dallas Mena MD Emergency Provider Active Dr. José Cunningham DO Admit Provider, Attending Pr ovider Active Corporate Development Associate Relationship Specialty Start Date End Date Yoseph Fall MD [address] [place], [place] [address] PCP - General 04/17/09 Team Status: Active [...] Dr. Jan Bolanos MD Attending Provider Active Corporate Development Associate Relationship Specialty Start Date End Date Yoseph Fall MD [address] [place], [place] 424221 PCP - General 04/17/09 Corporate Development Associate Relationship Specialty Start Date End Date Yoseph Fall MD [address] [place], [place] [address] PCP - General 04/17/09 Corporate Development Associate Relationship Specialty Start Date End Date Yoseph Fall MD [address] [place] [address] PCP - General 04/17/09 Corporate Development Associate Relationship Specialty Start Date End Date Yoseph Fall MD [address] [place] [address] PCP - General 04/17/09 Corporate Development Associate Relationship Specialty Start Date End Date Yoseph Fall MD [address] [place] [address] PCP - General 04/17/09 Corporate Development Associate Relationship Specialty Start Date End Date Yoseph Fall MD [address] [place] [address] PCP - General 04/17/09 Corporate Development Associate Relationship Specialty Start Date End Date Yoseph Fall MD [address] [place] [address] PCP - General 04/17/09 Iman Person APRN.SHIPPING CHECKER [address] [place] [address] Extruder Operator [facility] 04/02/24 Corporate Development Associate Relationship Specialty Start Date End Date Yoseph Fall MD [address] [place] [address] PCP - General 04/17/09 Iman Person APRN.SHIPPING CHECKER [address] [facility] [place] [address] Ext[facility]uder [facility] 04/02/24 Corporate Development Associate Relationship Specialty Start Date End Date Yoseph Fall MD [address] [facility] [place] [address] PCP - General 04/17/09 Iman Person APRN.SHIPPING CHECKER [address] [facility] [place] [address] Extruder Operator Helper [facility] Medicine 04/02/24 Nelson Robert APRN.SHIPPING CHECKER [address] [facility] [place] [address] Extruder [facility] 04/11/24 Corporate Development Associate Relationship Specialty Start Date End Date Yoseph Fall MD [address] [facility] [place] [address] PCP - General 04/17/09 Iman Person APRN.SHIPPING CHECKER [address] [facility] [place] [address] [facility] 04/02/24 Nelson Robert APRN.SHIPPING CHECKER [address] [facility] [place] [address] Extruder [facility] 04/11/24 Corporate Development Associate Relationship Specialty Start Date End Date Yoseph Fall MD [address] [facility] [place] [address] PCP - General 04/17/09 Iman Person APRN.SHIPPING CHECKER [address] [place] [address] Extruder Operator [facility] 04/02/24 Nelson Robert APRN.SHIPPING CHECKER [address] [place] [address] Extruder Operator [facility] 04/11/24 Corporate Development Associate Relationship Specialty Start Date End Date Yoseph Fall MD [address] [place] [address] PCP - General 04/17/09 Iman Person APRN.SHIPPING CHECKER [address] [place] [address] Extruder Operator [facility] 04/02/24 Nelson Robert APRN.SHIPPING CHECKER [address] [place] [address] Extruder Operator [facility] 04/11/24 Corporate Development Associate Relationship Specialty Start Date End Date Yoseph Fall MD [address] [place] [address] PCP - General 04/17/09 Iman Person APRN.SHIPPING CHECKER [address] [place] [address] Extruder Operator [facility] 04/02/24 Nelson Robert APRN.SHIPPING CHECKER [address] [place] [address] Extruder Operator [facility] 04/11/24 Corporate Development Associate Relationship Specialty Start Date End Date Yoseph Fall MD [address] [place] [address] PCP - General 04/17/09 Iman Person APRN.SHIPPING CHECKER [address] [place] [address] Extruder Operator [facility] 04/02/24 Nelson Robert APRN.SHIPPING CHECKER [address] [place] [address] Extruder Operator Helper [facility] 04/11/24 Corporate Development Associate Relationship Specialty Start Date End Date Yoseph Fall MD [address] [place] [address] PCP - General 04/17/09 Iman Person APRN.SHIPPING CHECKER [address] [place] [address] Extruder Operator [facility] 04/02/24 Nelson Robert DOCUMENT DESIGN SPECIALIST.SHIPPING CHECKER [address] [place] [address] [facility] 04/11/24 Corporate Development Associate Relationship Specialty Start Date End Date Yoseph Fall MD [address] [place] [address] PCP - General 04/17/09 Iman Person APRN.SHIPPING CHECKER [address] [place] [address] Extruder Operator [facility] 04/02/24 Nelson Robert APRN.SHIPPING CHECKER [address] [place] [address] Ext[facility]uder [facility] 04/11/24 Corporate Development Associate Relationship Specialty Start Date End Date Yoseph Fall MD [address] [facility] [place] [address] PCP - General 04/17/09 Iman Person APRN.SHIPPING CHECKER [address] [facility] [place] [address] Extruder Operator [facility] 04/02/24 Nelson Robert APRN.SHIPPING CHECKER [address] [facility] [place] [address] Extruder Operator [facility] 04/11/24 Corporate Development Associate Relationship Specialty Start Date End Date Yoseph Fall MD [address] [facility] [place] [address] PCP - General 04/17/09 Iman Person APRN.SHIPPING CHECKER [address] [facility] [place] [address] Extruder Operator [facility] 04/02/24 Nelson Robert APRN.SHIPPING CHECKER [address] [facility] [place] [address] Extruder Operator Helper [facility] Medicine 04/11/24 Corporate Development Associate Relationship Specialty Start Date End Date Yoseph Fall MD [address] [facility] [place] [address] PCP - General 04/17/09 Iman Person APRN.SHIPPING CHECKER [address] [facility] [place] [address] Extruder Operator [facility] 04/02/24 Nelson Robert APRN.SHIPPING CHECKER [address] [facility] [place] [address] [facility] 04/11/24 Corporate Development Associate Relationship Specialty Start Date End Date Yoseph Fall MD [address] [facility] [place] [address] PCP - General 04/17/09 Iman Person, DOCUMENT DESIGN SPECIALIST.SHIPPING CHECKER [address] [facility] [place] [address] Extr[facility] 04/02/24 Nelson Robert, DOCUMENT DESIGN SPECIALIST.SHIPPING CHECKER [address] [facility] [place] [address] [facility] 04/11/24 Corporate Development Associate Relationship Specialty Start Date End Date Yoseph Fall MD [address] [facility] [place] [address] PCP - General 04/17/09 Nelson Robert, DOCUMENT DESIGN SPECIALIST.SHIPPING CHECKER [address] [facility] [place] [address] [facility] 04/11/24 Team Status: Active Member Role [...] Active Member Role Status Dates Dr. Yoseph aFll MD Primary [...] Provider Active St art: October 09, 2024 Corporate Development Associate Relationship Specialty Start Date End Date Yoseph Fall MD [address] [place], [place] 395301 PCP - General 04/17/09 Nelson Robert, ABRAHAM.SHIPPING CHECKER [address] [place], [place] [address] Extruder Operator [facility] 04/11/24 Corporate Development Associate Relationship Specialty Start Date End Date Yoseph Fall MD [address] [place], [place] [address] PCP - General 04/17/09 Nelson Robert APRN.SHIPPING CHECKER [address] [place] [address] Extruder Operator Helper [facility] 04/11/24 Corporate Development Associate Relationship Specialty Start Date End Date Yoseph Fall MD [address] [place] [address] PCP - General 04/17/09 Nelson Robert, DOCUMENT DESIGN SPECIALIST.SHIPPING CHECKER [address] [place] [address] [facility] 04/11/24 Corporate Development Associate Relationship Specialty Start Date End Date Yoseph Fall MD [address] [place] [address] PCP - General 04/17/09 Nelson Robert, DOCUMENT DESIGN SPECIALIST.SHIPPING CHECKER [address] [place] [address] [facility] 04/11/24 Corporate Development Associate Relationship Specialty Start Date End Date Yoseph Fall MD [address] [place] [address] PCP - General 04/17/09 Nelson Robert, DOCUMENT DESIGN SPECIALIST.SHIPPING CHECKER [address] [place] [address] [facility] 04/11/24 Corporate Development Associate Relationship Specialty Start Date End Date Yoseph Fall MD [address] [place] [address] PCP - General 04/17/09 Nelson Robert APRN.SHIPPING CHECKER [address] [place] [address] Extruder Operator Helper [facility] 04/11/24 Corporate Development Associate Relationship Specialty Start Date End Date Yoseph Fall MD [address] [place] [address] PCP - General 04/17/09 Nelson Robert DOCUMENT DESIGN SPECIALIST.SHIPPING CHECKER [address] [place] [address] Extruder Operator Helper [facility] 04/11/24 Corporate Development Associate Relationship Specialty Start Date End Date Yoseph Fall MD [address] [place] [address] PCP - General 04/17/09 Nelson Robert, DOCUMENT DESIGN SPECIALIST.SHIPPING CHECKER [address] [place] [address] Extruder Operator Helper [facility] 04/11/24 Corporate Development Associate Relationship Specialty Start Date End Date Yoseph Fall MD [address] [place] [address] PCP - General 04/17/09 Nelson Robert, DOCUMENT DESIGN SPECIALIST.SHIPPING CHECKER [address] [place] [address] [facility] 04/11/24 Corporate Development Associate Relationship Specialty Start Date End Date Yoseph Fall MD [address] [place] [address] PCP - General 04/17/09 Nelson Robert DOCUMENT DESIGN SPECIALIST.SHIPPING CHECKER [address] [facility] [place], [place] [address] Extruder Operator Helper Family [facility] 04/11/24 Corporate Development Associate Relationship Specialty Start Date End Date Yoseph Fall MD [address] [place], [place] [address] PCP - General 04/17/09 Nelson Robert APRN.SHIPPING CHECKER [address] [facility] [place], [place] [address] Extruder Operator Helper [facility] 04/11/24 Team Status: Active Member [...] Active Start: October 07, 2024 Dr. Junito aMdrid MD Other Provider Active St art: October [...] November 03, 2024 End: November 03, 2024 Corporate Development Associate Relationship Specialty Start Date End Date Yoseph Fall MD [address] [place], [place] [address] PCP - General 04/17/09 Nelson Robert, ABRAHAM.SHIPPING CHECKER [address] [place], [place] [address] Extruder [facility] 04/11/24 Corporate Development Associate Relationship Specialty Start Date End Date Yoseph Fall MD [address] [place], [place] 7660[address] PCP - General 04/17/09 Nelson Robert APRN.SHIPPING CHECKER [address] [place], [place] [address] Extruder Operator [facility] 04/11/24 Corporate Development Associate Relationship Specialty Start Date End Date Yoseph Fall MD [address] [place] [address] PCP - General 04/17/09 Nelson Robert APRN.SHIPPING CHECKER [address] [place] [address] [facility]ruder [facility] 04/11/24 Corporate Development Associate Relationship Specialty Start Date End Date Yoseph Fall MD [address] [place] [address] PCP - General 04/17/09 Nelson Robert APRN.SHIPPING CHECKER [address] [place] [address] Extruder [facility] 04/11/24 Mikayla Broussard, RN Specialty Pediatric Nurse Practitioner [facility] 11/24/24 Gregor Fernandez APRN.SHIPPING CHECKER [address] [place], [place] [id number] Palliative Medicine Home Provider [facility] 11/24/24 Corporate Development Associate Relationship Specialty Start Date End Date Yoseph Fall MD [address] [place] [address] PCP - General 04/17/09 Nelson Robert DOCUMENT DESIGN SPECIALIST.SHIPPING CHECKER [address] [place] [address] Extruder [facility] 04/11/24 Mikayla Broussard, RN Specialty Pediatric Nurse Practitioner [facility] 11/24/24 Gregor Fernandez APRN.SHIPPING CHECKER [address] [place] [address] Palliative Medicine Home Provider [facility] 11/24/24 Corporate Development Associate Relationship Specialty Start Date End Date Yoseph Fall MD [address] [place], [place] [address] PCP - General 04/17/09 Nelson Robert, DOCUMENT DESIGN SPECIALIST.SHIPPING CHECKER [address] [place], [place] [id number] [phone] Extruder Operator Helper Family [facility] 04/11/24 Mikayla Broussard, KAREN Specialty Pediatric Nurse Practitioner Hospice & Palliative Medicine 11/24/24 Gregor Fernandez, DOCUMENT DESIGN SPECIALIST.SHIPPING CHECKER [address] [place], [place] [id number] Palliative Medicine Home Provider [facility] 11/24/24 Corporate Development Associate Relationship Specialty Start Date End Date Yoseph Fall MD [address] [place], [place] [id number] [phone] PCP - General 04/17/09 Nelson Robert, DOCUMENT DESIGN SPECIALIST.SHIPPING CHECKER [address] [place] [address] Extruder Operator Helper Family [facility] 04/11/24 Mikayla Broussard, KAREN Specialty Pediatric Nurse Practitioner [facility] 11/24/24 Gregor Fernandez, DOCUMENT DESIGN SPECIALIST.SHIPPING CHECKER [address] [place] [address] Palliative Medicine Home Provider [facility] 11/24/24 Corporate Development Associate Relationship Specialty Start Date End Date Yoseph Fall MD [address] [place] [address] PCP - General 04/17/09 Nelson Robert, DOCUMENT DESIGN SPECIALIST.SHIPPING CHECKER [address] [place] [address] Extruder Operator Helper Family [facility] 04/11/24 Mikayla Broussard, RN Specialty Pediatric Nurse Practitioner [facility] 11/24/24 Gregor Fernandez, DOCUMENT DESIGN SPECIALIST.SHIPPING CHECKER [address] [place], [place] [id number] Palliative Medicine Home Provider [facility] 11/24/24 Corporate Development Associate Relationship Specialty Start Date End Date Yoseph Fall MD [facility] [place] [address] PCP - General 04/17/09 Nelson Robert DOCUMENT DESIGN SPECIALIST.SHIPPING CHECKER [facility] [place] [address] Extruder Operator Helper [facility] 04/11/24 Mikayla Broussard RN Specialty Pediatric Nurse Practitioner [facility] Medicine 11/24/24 Gregor Fernandez, DOCUMENT DESIGN SPECIALIST.SHIPPING CHECKER [address] [place], [place] [id number] Palliative Medicine Home Provider [facility] Medicine 11/24/24 Corporate Development Associate Relationship Specialty Start Date End Date Yoseph Fall MD [address] [place] [address] PCP - General 04/17/09 Nelson Robert DOCUMENT DESIGN SPECIALIST.SHIPPING CHECKER [address] [place] [address] Extruder Operator [facility] 04/11/24 Mikayla Broussard, KAREN Specialty Pediatric Nurse Practitioner [facility] 11/24/24 Gregor Fernandez APRN.SHIPPING CHECKER [address] [place] [address] Palliative Medicine Home Provider Hospice & Palliative [...] St art: December 27, 2024 Dr. Lynne Scahfer MD Other Provider Active St art: December 27, 2024 Stacy Pincumbe-Gillaspie , FORMING MILL OPERATOR-C Attending Provider Active Start: December Stacy Jha NP-C Other Provider Active Start: December Team Status: Inactive Member Role/Relationship Status Dates Dr. Yoseph Fall MD Primary Care Provider Active Start: December 26, 2024 End: December 30, 2024 Dr. Marcel Zartae MD Emergency Provider Active Start: December 26, [...] Provider Active Start: December 28, 2024 Dr. Macrel Zarate MD Emergency Provider Active Start: December [...] Provider Active Star t: December 29, 2024 Corporate Development Associate Relationship Specialty Start Date End Date Yoseph Fall MD [address] [place], [place] 486[address] PCP - General 04/17/09 Nelson Robert, DOCUMENT DESIGN SPECIALIST.SHIPPING CHECKER [address] [place], [place] [address] Extruder Operator [facility] 04/11/24 Mikayla Broussard, RN Specialty Pediatric Nurse Practitioner [facility] 11/24/24 Gregor Fernandez, DOCUMENT DESIGN SPECIALIST.SHIPPING CHECKER [address] [place] [address] Palliative Medicine Home Provider Hospice & [...] 03, 2024 Dr. Riley Jeff DO Emergency Departnv nt Physician Active Start: October 03, 2024 [...] 05, 2024 Dr. Riley Jeff , [facility] Active Start: October 05, 2024 [...] October 06, 2024 Dr. Riley Jeff Emergency [facility] nt Physician Active Start: October 06, [...] October 07, 2024 Dr. Riley Jeff Emergency Departnv nt Physician Active Start: October 07, 2024 [...] October 07, 2024 Dr. Riley Jeff Emergency Departnv nt Physician Active Start: October 07, 2024 [...] 03, 2024 End: November 03, 2024 Dr. Ysoeph Fall MD Referring Provider Active Start: November 03, 2024 End: November 03, 2024 Lindsay BABCOCK, PA Attending physician Active Start: November 03, 2024 End: November 03, 2024 Team Status: Inactive Member Role/Relationship Status Dates Dr. Yoseph Fall MD Primary care physician Active Start: December 26, 2024 End: December 30, 2024 Dr. Marcel Zarate MD Emergency Depart [facility] Physician Active Start: December 26, 2024 End: December 30, 2024 Dr. Dionne Porter MD Admitting physician Active Start: December 26, 2024 End: December 30, 2024 Dr. Dionne Porter MD Nurse Practitioner Active Start: December 26, 2024 End: December 30, 2024 Dr. Lynne Schafer MD Attending physician Active Start: December 26, 2024 End: December 30, 2024 Stacy Jha FORMING MILL OPERATOR-C Nurse Practitioner Active Start: December End: December 30, 2024 Dr. Alessandro Palma MD Nurse Practitioner Active Start: December 26, 2024 End: December 30, 2024 Dr. Kyle Mendenhall DO Nurse Practitioner Active Start: December 26, 2024 End: December 30, 2024 Elma Mendez FORMING MILL OPERATOR-C Nurse Practitioner Active S tart: December 26, 2024 End: December 30, 2024 Mercedez Joseph FORMING MILL OPERATOR-C Nurse Practitioner Active Start: December 26, 2024 [...] Active Start: December 27, 2024 Stacy Jha FORMING MILL OPERATOR-C Attending physician Active Start: December Stacy Jha FORMING MILL OPERATOR-C Nurse Practitioner Active Start: December Team Status: [...] 2024 Dr. Marcel Zarate MD Emergency Depart [facility] Physician Active Start: December 28, 2024 Dr. [...] 2024 Dr. Marcel Zarate MD Emergency Depart [facility] Physician Active Start: December 29, 2024 Dr. Dionne Porter MD Admitting physician Active Start: December 29, 2024 Dr. Dionne Porter MD Nurse Practitioner Active Start: December 29, 2024 Dr. Lynne Schafer MD Nurse Practitioner Active Start: December 29, 2024 Stacy Jha FORMING MILL OPERATOR-C Attending physician Active Start: December Stacy Jha FORMING MILL OPERATOR-C Nurse Practitioner Active Start: December Dr. Alessandro [...] Nurse Practitioner Active Start: December 29, 2024 Stayc Jha NP-C Nurse Practitioner Active Start: December [...] S tart: December 30, 2024 Mercedez Joseph FORMING MILL OPERATOR-C Nurse Practitioner Active Start: December 30, 2024 [...] Start: January 25, 2025 Susan Madison NP, FORMING MILL OPERATOR-C Nurse Practitioner Active Start: January 25, 2025 [...] Start: January 25, 2025 Susan Madison NP, FORMING MILL OPERATOR-C Nurse Practitioner Active Start: January 25, 2025 [...] Active Start: October 07, 2024 Dr. Lynne Schaefr MD Nurse Practitioner Active Start: October 07, [...] 08, 2024 Dr. Riley Jeff , Emergency Departnv nt Physician Active Start: October 08, 2024 [...] 2024 End: December 30, 2024 Stacy Jha FORMING MILL OPERATOR-C Nurse Practitioner Active Start: December End: December 30, 2024 Dr. Alessandro Palma MD Nurse Practitioner Active Start: December 26, 2024 End: December 30, 2024 Dr. Kyle Mendenhall DO Nurse Practitioner Active Start: December 26, 2024 End: December 30, 2024 Elma Mendez FORMING MILL OPERATOR-C Nurse Practitioner Active S tart: December 26, 2024 End: December 30, 2024 Mercedez Joseph FORMING MILL OPERATOR-C Nurse Practitioner Active Start: December 26, 2024 [...] Active Start: December 27, 2024 Stacy Jha FORMING MILL OPERATOR-C Attending physician Active Start: December Stacy Jha FORMING MILL OPERATOR-C Nurse Practitioner Active Start: December Team Status: [...] 2024 Dr. Marcel Zarate MD Emergency Depart [facility] Physician Active Start: December 28, 2024 Dr. [...] 2024 Dr. Marcel Zarate MD Emergency Depart [facility] Physician Active Start: December 28, 2024 Dr. [...] 2024 Dr. Marcel Zarate MD Emergency Depart [facility] Physician Active Start: December 29, 2024 Dr. [...] 2024 Dr. Marcel Zarate MD Emergency Depart [facility] Physician Active Start: December 30, 2024 Dr. [...] Start: January 25, 2025 Susan Madison NP, FORMING MILL OPERATOR-C Nurse Practitioner Active Start: January 25, 2025 Haylee Shafer , FORMING MILL OPERATOR-C Nurse Practitioner Active Start: January 25, 2025 [...] Start: January 25, 2025 Susan Madison NP, FORMING MILL OPERATOR-C Nurse Practitioner Active Start: January 25, 2025 Haylee Shafer FORMING MILL OPERATOR-C Nurse Practitioner Active Start: January 25, 2025 [...] Active Start: January 26, 2025 Susan Madison FORMING MILL OPERATOR, FORMING MILL OPERATOR-C Nurse Practitioner Active Start: January 26, 2025 [...] Active Start: January 26, 2025 Susan Madison FORMING MILL OPERATOR, FORMING MILL OPERATOR-C Nurse Practitioner Active Start: January 26, 2025 [...] Active Start: January 26, 2025 Dr. Alessandro Pamla MD Nurse Practitioner Active Start: January 26, [...] Active Start: January 26, 2025 Susan Madison FORMING MILL OPERATOR, FORMING MILL OPERATOR-C Nurse Practitioner Active Start: January 26, 2025 Haylee Shafer , FORMING MILL OPERATOR-C Nurse Practitioner Active Start: January 26, 2025 [...] Start: January 27, 2025 Susan Madison NP, FORMING MILL OPERATOR-C Nurse Practitioner Active Start: January 27, 2025 Haylee Shafer FORMING MILL OPERATOR-C Nurse Practitioner Active Start: January 27, 2025 [...] Active Start: January 28, 2025 Susan Madison FORMING MILL OPERATOR, FORMING MILL OPERATOR-C Nurse Practitioner Active Start: January 28, 2025 Haylee Shafer FORMING MILL OPERATOR-C Nurse Practitioner Active Start: January 28, 2025 [...] 2024 Dr. Marcel Zarate MD Emergency Depart [facility] Physician Active Start: December 26, 2024 End: December 30, 2024 Dr. Dionne Porter MD Admitting physician Active Start: December 26, 2024 End: December 30, 2024 Dr. Dionne Porter MD Nurse Practitioner Active Start: December 26, 2024 End: December 30, 2024 Dr. Lynne Schafer MD Attending physician Active Start: December 26, 2024 End: December 30, 2024 Stacy Jha FORMING MILL OPERATOR-C Nurse Practitioner Active Start: December End: December 30, 2024 Dr. Alessandro Palma MD Nurse Practitioner Active Start: December 26, 2024 End: December 30, 2024 Dr. Kyle Mendenhall DO Nurse Practitioner Active Start: December 26, 2024 End: December 30, 2024 Elma Mendez NP-C Nurse Practitioner Active S tart: December 26, 2024 End: December 30, 2024 Mercedez Joseph FORMING MILL OPERATOR-C Nurse Practitioner Active Start: December 26, 2024 [...] Start: December 27, 2024 Stacy Jha , FORMING MILL OPERATOR-C Attending physician Active Start: December Stacy Jha , FORMING MILL OPERATOR-C Nurse Practitioner Active Start: December Team Status: [...] Active Start: December 27, 2024 Stacy Jha FORMING MILL OPERATOR-C Nurse Practitioner Active Start: December Dr. Alessandro [...] Active Start: December 28, 2024 Stacy Jha FORMING MILL OPERATOR-C Attending physician Active Start: December Stacy Jha [...] 2024 Dr. Marcel Zarate MD Emergency Depart [facility] Physician Active Start: December 29, 2024 Dr. Dionne Porter MD Admitting physician Active Start: December 29, 2024 Dr. Dionne Porter MD Nurse Practitioner Active Start: December 29, 2024 Dr. Lynne Schafer MD Nurse Practitioner Active Start: December 29, 2024 Stacy Jah NP-Patrick Attending physician Active Start: December Stacy Jha NP-C Nurse Practitioner Active Start: December Dr. Alessandro Palma MD Nurse Practitioner Active Start: December 29, 2024 Dr. Kyle Mendenhall DO Nurse Practitioner Active Start: December 29, 2024 Elma Mendez NP-C Nurse Practitioner Active S tart: December 29, 2024 Mercedez Joseph FORMING MILL OPERATOR-C Nurse Practitioner Active Start: December 29, 2024 SADIQ Paez Nurse Practitioner Active Start: December 29, 2024 Team Status: Active Member Role/Relationship Status Dates Dr. Yoseph Fall MD Primary care physician Active Start: December 29, 2024 Dr. Marcel Zarate MD Emergency Depart [facility] Physician Active Start: December 29, 2024 Dr. [...] Start: January 25, 2025 Susan Madison NP, FORMING MILL OPERATOR-C Nurse Practitioner Active Start: January 25, 2025 [...] Active Start: January 25, 2025 Susan Madison FORMING MILL OPERATOR, FORMING MILL OPERATOR-C Nurse Practitioner Active Start: January 25, 2025 [...] Start: January 26, 2025 Susan Madison NP, FORMING MILL OPERATOR-C Nurse Practitioner Active Start: January 26, 2025 [...] Active Start: January 26, 2025 Susan Madison FORMING MILL OPERATOR, FORMING MILL OPERATOR-C Nurse Practitioner Active Start: January 26, 2025 [...] Start: January 26, 2025 Susan Madison NP, FORMING MILL OPERATOR-C Nurse Practitioner Active Start: January 26, 2025 Haylee Shafer , FORMING MILL OPERATOR-C Nurse Practitioner Active Start: January 26, 2025 [...] Start: January 27, 2025 Susan Madison NP, FORMING MILL OPERATOR-C Nurse Practitioner Active Start: January 27, 2025 Haylee Shafer FORMING MILL OPERATOR-C Nurse Practitioner Active Start: January 27, 2025 [...] Practitioner Active Start: January 28, 2025 Dr. Megagn Araujo MD Nurse Practitioner Active Start: January [...] Active Start: January 28, 2025 Dr. Jia Krisnha MD Nurse Practitioner Active Start: January 28, 2025 Dr. Rob Augustni MD Nurse Practitioner Active Start: January 28, 2025 Susan Madison FORMING MILL OPERATOR, FORMING MILL OPERATOR-C Nurse Practitioner Active Start: January 28, 2025 Haylee Shafer FORMING MILL OPERATOR-C Nurse Practitioner Active Start: January 28, 2025 [...] Physician Active Start: January 29, 2025 Dr. Alessandor Palma MD Admitting physician Active Start: January [...] 2025 End: February 08, 2025 Ingris Irwin FORMING MILL OPERATOR, FORMING MILL OPERATOR-C Attending physician Active Start: February 08, 2025 [...] MULTIPLE Michelle Marie MD [address] [place] [address] Respiratory [place] [address] [place] [address] Referral ID Status Reason Start Date Expiration Date V isits Requested Visits Authorized [id number] Closed Auto-Generate d Referral 01/13/2022 02/12/2023 1 [...] Comments Medication Problem Patient Update Reason Comments [facility] patient update Reason Onset Date Comments Transition Of Care 10/10/2024 Reason Onset Date Comments Refill Request 10/11/2024 Reason Comments PT Delay in Care Order Reason Onset Date Comments Refill Request 10/12/2024 Reason Comments Hospital F/U [facility] Reason Comments Orders Occupation Therapy Plan of care SW Consu lt Physical Therapy Plan of Care Reason Comments Patient Update Reason Comments pall med- [id number] Initial Consult Reason Comments Home Care Management Refill Request Reason Comments order question Reason Comments No Show Specialty Diagnoses / Procedures Referred By Contac t Referred To Contact Hospice & Palliative Medicine Diagnoses Stage 3 severe COPD by GOLD classification ([facility]) Generalized osteoarthrosis, involving multiple sites Generalized anxiety disorder Chronic low back pain with sciatica, sciatica laterality unspecified, unspecified back pain laterality Procedures CONSULT TO PALLIATIVE CARE OFFICE/OUTPATIENT [facility] 60 MINUTES Yoseph Fall MD [address] [place] [address] Phone: tel: fax: Referral ID Status Reason Start Date Expiration Date V isits Requested Visits Authorized [id number] Closed PCP Requested Referral 10/20/2024 10/20/2025 1 1 Reason Comments Patient Request Patient Update Specialty Diagnoses / Procedures Referred By Contac t Referred To Contact Hospice & Palliative Medicine Diagnoses Stage 3 severe COPD by GOLD classification ([facility]) Chronic low back pain with sciatica, sciatica laterality unspecified, unspecified back pain laterality Procedures CONSULT TO PALLIATIVE CARE OFFICE/OUTPATIENT [facility] 60 MINUTES Yoseph Fall MD [address] [place] [address] Phone: tel: fax: Referral ID Status Reason Start Date Expiration Date V isits Requested Visits Authorized [id number] Closed PCP Requested Referral 10/23/2024 10/23/2025 1 1 Reason Comments Symptom Management Reason Onset Date Comments Refill Request 11/23/2024 Reason Comments Care Coordination Reason Comments [facility] Nursing Call Reason Onset Date Comments [...] section and content) DATE CREATED AUTHOR 01/30/2025 [facility] DATE CREATED AUTHOR AUTHOR'S ORGANIZ ATION 02/14/2025 [facility] DATE CREATED AUTHOR AUTHOR'S SHARITA ATION 02/20/2025 [facility] FOR RECORDS PERTAINING TO PATIENTS WHO [...] BE BASED ON THE PRIMARY CLINICAL RECORDS. [facility]. provides no warranty or guarantee of the accuracy or completeness of information in this document.
[2025-02-24 17:44] LABS: Magnesium 1.9 mg/dL (1.5-2.2)
--- NOTE | 2025-02-24 17:46 | ED.RN ---
Pt intubated, unable to obtain med list.
--- NOTE | 2025-02-24 17:57 | ED.RN ---
This RN was escorting another patient to CT and got a call that respiratory was required for this patient. When I entered the room Chanda Alvarez RN and Barbara Hernandez were at bedside and stated that she had self extubated. Dr. Sampson was notified and came bedside and re-intubated at that time.
[2025-02-24 18:05] LABS: Troponin T High Sens 4 HR 26 ng/L (<=14)
[2025-02-24] MEDS: fentaNYL 100 MCG/2 ML Ampul IV (18:12)
--- NOTE | 2025-02-24 18:25 | RAD_ITS ---
PROCEDURE: CHEST 1 VIEW (PORTABLE) 02/24/2025 REASON FOR EXAM: POST INTUBATION TECHNIQUE: Frontal view of the chest. COMPARISON: 02/24/2025 FINDINGS: LINES: Endotracheal tube tip terminating 3.6 cm above the kaylan. Enteric tube coursing into the stomach, its distal tip out of the field of view. The distal side port of the enteric tube is seen in the gastric fundus. LUNGS AND PLEURA: Emphysematous lung changes. Postsurgical changes in the right upper lung with parenchymal scarring. Persistent opacity in the right lung base. No pleural effusion or pneumothorax. HEART AND MEDIASTINUM: The heart size and mediastinal contours are normal. AORTA: Calcified thoracic aorta. BONES: No acute osseous abnormality. RAD/Chest 1 View (Portable) IMPRESSION: Well-positioned endotracheal and enteric tubes. Reading Location: [id number]
--- NOTE | 2025-02-24 18:34 | CPS ---
pt self extubated, reintubation at 1756
--- NOTE | 2025-02-24 18:43 | ED.RN ---
pt reintubated by Dr. Jackson @ [id number]. ET size 7, 24 @ lip.
--- NOTE | 2025-02-24 21:04 | PCMCONS.TICU ---
HPI Consult Data Date of Consult: 02/24/25 HPI Narrative Reason for Consultation: Acute respiratory failure, COPD exacerbation HPI Narrative: DENIA MARC, is a 69 WF with a hx of COPD/asthma, anemia, anxiety, depression, AV stenosis, RLS, a-fib and HTN who presented to the ER here today with worsening shortness of breath. She was initially noted to have a metabolic acidosis, placed on Bipap and then was intubated 2/2 persistent dyspnea. She was moved to the ICU afterwards and I was consulted. On interview, the patient was intubated, sedated and calm. On A/C: Tv: 400, RR: 16, PEEP: 5, FiO2: 80%. She had IV NS running at 100 cc/hr and had a fentayl drip infusing. Per nurse, she made 200 cc of urine in the last 1-2 hours. She appeared to be calm and well sedated. [facility] Medical History Palliative care encounter Acute anemia Acute respiratory insufficiency Anxiety Anxiety and depression Respiratory insufficiency COPD with acute exacerbation Afib Aortic valve stenosis RLS (restless legs syndrome) History of ETOH abuse Chronic hypoxic respiratory failure, on home oxygen therapy COPD (chronic obstructive pulmonary disease) Anxiety Depression Smoker Asthma Hypertension Migraines Home Medications Medication Instructions Recorded Last Taken Type albuterol sulfate 90 mcg/actuation 1 - 2 puff inhalation Q4H PRN PRN 04/18/13 09/23/14 History aerosol inhaler (Ventolin HFA) Bronchodialation montelukast 10 mg tablet 10 mg PO DAILY allergies 04/18/13 09/23/14 History 10 MG tiotropium bromide 18 mcg capsule 1 puff inhalation DAILY wheezing 04/18/13 09/23/14 History with inhalation device (Spiriva with HandiHaler) Oxygen, Home [Home Oxygen] 2.5 lpm PRN PRN Dyspnea 10/22/13 09/23/14 History sertraline 100 mg tablet 100 mg PO BID mood 10/22/13 09/23/14 History Ropinirole Hcl 0.25 mg PO QHS restless legs 09/23/14 Unknown History ipratropium 0.5 mg-albuterol 3 mg 3 ml inhalation Q4HWA.RT wheezing 05/13/16 Unknown Rx (2.5 mg base)/3 mL nebulization ##30 soln cholecalciferol (vitamin D3) 50 50 mcg PO DAILY vitamin 10/18/23 Unknown History mcg (2,000 unit) capsule (Vitamin D3) ipratropium 0.5 mg-albuterol 3 mg 3 ml inhalation Q6H PRN shortness 10/18/23 Unknown Rx (2.5 mg base)/3 mL nebulization of breath or wheezing #180 mL soln buspirone 10 mg tablet 10 mg PO BID anxiety 10/02/24 Unknown History hydrocodone-acetaminophen 5-325mg 1 tab PO BID PRN PRN pain 10/03/24 Unknown History 5mg-325mg nicotine 14 mg/24 hr daily 14 mg transdermal DAILY prn #28 ea 10/09/24 Unknown Rx transdermal patch apixaban 5 mg tablet (Eliquis) 5 mg PO BID blood thinne #60 tabs 11/03/24 Unknown Rx carvedilol 6.25 mg tablet 6.25 mg PO BID bp #60 tabs 11/03/24 Unknown Rx furosemide 20 mg tablet 20 mg PO DAILY fluid overload 12/27/24 Unknown History pantoprazole 40 mg tablet,delayed 40 mg PO BID GERD #60 tabs 12/30/24 Unknown Rx release verapamil 180 mg 24 hr 180 mg PO BID #60 caps 12/30/24 Unknown Rx capsule,extended release OXYGEN - Supplemental ([facility] hypoxia 01/27/25 Unknown History INFORMATIONAL USE ONLY) alprazolam 0.25 mg tablet 0.25 mg PO Q6H PRN PRN Anxiety 3 01/31/25 Unknown Rx days #12 tabs potassium chloride 10 mEq 10 meq PO DAILYCM 30 days #0 tabs 01/31/25 Unknown Rx tablet,extended release(part/cryst) prednisone 20 mg tablet See Taper PO BREAKFAST #32 tabs 01/31/25 Unknown Rx bisacodyl 10 mg rectal suppository 10 mg CO ONCE 02/08/25 Unknown History cyanocobalamin (vitamin B-12) 500 500 mcg PO QDAY 02/08/25 Unknown History mcg tablet Allergy/AdvReac Type Severity Reaction Status Date / Time No Known Allergies Allergy Verified 02/12/25 08:52 Family History Mother Hypertension Throat cancer Father Hypertension Stomach cancer Surgical History H/O exploratory laparotomy History of lung surgery History of cholecystectomy Social History household members: significant other and none housing: apartment Smoking Status: Former smoker alcohol intake: former substance use type: does not use ROS ROS Narrative ROS positive only for features mentioned in the HPI. Objective Data Objective Data Vital Signs: Vital Signs Last response Temperature 38.7 C H 02/24/25 19:01 Temperature Source Core 02/24/25 19:01 Pulse Rate 107 H 02/24/25 20:00 Respiratory Rate 18 02/24/25 20:00 Respiratory Effort Labored, Accessory Muscle Use, Pursed Lip 02/24/25 15:28 Respiratory Depth Normal 02/24/25 15:28 Respiratory Pattern Normal 02/24/25 20:00 Blood Pressure 92/61 02/24/25 19:01 Blood Pressure Mean 70 02/24/25 19:01 Pulse Ox 100 02/24/25 20:00 Oxygen Delivery Method Mechanical Ventilator 02/24/25 18:00 Oxygen Flow Rate (L/min) 3 02/24/25 15:23 Fraction of Inspired Oxygen (FIO2) 40 02/24/25 20:00 I&O: I&O Last 24 Hours 02/23/25 02/24/25 02/24/25 23:59 11:59 23:59 Intake Total 1498.57 / 1498.57 Balance 1498.57 / 1498.57 I&O: Total Stay 02/24/25 13:06 thru 02/24/25 21:00 Intake Total 1498.57 Balance 1498.57 Current Meds Ordered / Administered: Current meds ordered / Administered Generic Name Dose Route Start Last Admin Trade Name Freq PRN Reason Stop Dose Admin Acetaminophen 1,000 mg 02/24/25 22:00 Acetaminophen 650 Mg/20 Ml Udc NG Q8 HINA Albuterol/Ipratropium 3 ml 02/24/25 20:22 Ipratropium/Albuterol Sulfate 3 Ml Ampul.Neb INHALATION Q4H.RT HINA Apixaban 5 mg 02/24/25 22:00 Apixaban 5 Mg Tablet PO BID HINA Fentanyl 100 mls @ 2.5 mls/hr 02/24/25 15:45 02/24/25 21:00 CONT INF 150 mcg/hr UD HINA 15 mls/hr Protocol Titration 25 MCG/HR Propofol 1,000 mg in 100 mls @ 3.822 mls/hr 02/24/25 15:45 02/24/25 21:00 Diprivan CONT INF 50 mcg/kg/min .Q12H HINA 19.1 mls/hr Protocol Titration 10 MCG/KG/MIN Vancomycin IV-PHARMACY TO DOSE 500 mls @ 250 mls/hr 02/24/25 19:00 1 each/ Sodium Chloride IV DAILY [facility] Protocol Piperacillin Sod/Tazobactam 50 mls @ 12.5 mls/hr 02/24/25 19:00 Sod 3.375 gm/ Sodium Chloride IV Q8 [facility] Sodium Chloride 1,000 mls @ 100 mls/hr 02/24/25 20:22 IV 02/25/25 06:21 .Q10H HINA Sodium Chloride 250 mls @ 15 mls/hr 02/24/25 20:42 IV .[id number] PRN Saline Flush Sodium Chloride 250 mls @ 15 mls/hr 02/24/25 20:42 IV .[id number] PRN Additional IVPB Infusion Methylprednisolone Sodium Succinate 40 mg 02/24/25 22:00 Methylprednisolone Sod Succ 40 Mg/Ml Vial IV 02/25/25 22:01 Q8 HINA Oxycodone HCl 2.5 - 5 mg 02/24/25 20:22 Oxycodone 5 Mg Tablet NG Q4H PRN PRN Pain Score 4-10 Senna/Docusate Sodium 2 tablet 02/24/25 22:00 Senna/Docusate Sodium 1 Tablet PO BID [facility] Sodium Chloride 10 - 40 ml 02/24/25 20:42 0.9% Saline Lock 10 Ml Syringe IV UD PRN SALINE FLUSH Physical Exam Const Constitutional Narrative: Overweight WF, intubated, sedated, calm. HEENT normocephalic, head/scalp atraumatic and moist oral mucous membranes Eyes PERRL, EOMs intact bilaterally, conjunctivae normal and no scleral icterus Neck full ROM, no lymphadenopathy, supple and no JVD Chest Chest Narrative: Mild end inspiratory wheezing -B. No r/r. Resp normal respiratory effort and no use of accessory muscles Cardio Cardio Narrative: Irregular rate and rthym. No m/r/r. GI normal to inspection, nondistended, normoactive bowel sounds, soft to palpation and non-tender Extremity no clubbing, cyanosis or edema Lab / Micro Data 02/24/25 13:16 02/24/25 13:16 Labs: Laboratory Results - last 24 hr 02/24/25 13:16: WBC 11.3 H, RBC 3.74 L, Hgb 8.9 L, Hct 30.5 L, MCV 81.6, MCH 23.8 L, MCHC 29.2 L, RDW Std Deviation 46.3 H, RDW Coeff of Augustin 15.4 H, Plt Count 168, MPV 10.2, Immature Gran % (Auto) 1.300 H, Neut % (Auto) 83.9 H, Lymph % (Auto) 9.1 L, [place] % (Auto) 5.2, Eos % (Auto) 0.1, Baso % (Auto) 0.4, Absolute Neuts (auto) 9.5 H, Absolute Lymphs (auto) 1.02, Nucleated RBC % 0, Sodium 137, Potassium 5.0, Chloride 92 L, Carbon Dioxide 37.0 H, Anion Gap 7, BUN 25 H, Creatinine 0.48 L, Estim Creat Clear Calc 57.31, Est GFR (MDRD) Non-Af 102, BUN/Creatinine Ratio 52.3 H, Glucose 141 H, Lactic Acid < 1.0, Calcium 8.8, Troponin T High Sens 27 H D, NT pro BNP II 1746 H 02/24/25 16:30: Magnesium 1.9, Troponin T Hi Sens 2 Hr 26 H 02/24/25 17:40: Troponin T Hi Sens 4Hr 26 H Micro: Microbiology 02/24/25 13:36 Mucosa - Nose SARS-CoV-2, Influenza & RSV (PCR) - Final ABG Data ABG results: ABG 02/24/25 02/24/25 02/24/25 13:50 15:06 17:05 Specimen Type RENNY ART ART Sample Site Not entered L Radial L Brach pH 7.10 L* 7.22 L Bicarbonate Actual 38.5 H 37.3 H Total CO2 42 40 Base Excess 9 H 10 H O2 Saturation 91 L 39 L O2 % 35.0 35.0 ABG pCO2 123.4 H* 92.3 H* ABG pO2 87 29 L* Issa Test Positive Positive VBG pH 7.15 L* VBG pO2 52 H VBG HCO3 40 H VBG Total CO2 43 H VBG O2 Sat (Calc) 71 H VBG Base Excess 11 H POC Mix VBG pCO2 Pt Tmp 113.4 H* Respiration Rate 12 14 O2 Delivery Device Not entered BiPAP Adult Vent Vent Mode BiLevel AC Tidal Volume 400.0 400.0 POC PEEP 8 5 Crit Call To/Read Back Yes Yes Yes Blood Gas Notified Whom robert robert robert Blood Gas Notified Time 13:52:25 15:08:11 17:07:00 Imaging Radiology Impression Abdomen/Pelvis CT 02/24/25 15:10 IMPRESSION: 1. Diffuse biliary ductal prominence. No obstructing lesions seen. Findings can be seen in the postcholecystectomy state however would correlate with clinical signs of cholestasis. 2. Dependent atelectasis/infiltrates in both lower lobes. 3. Bilateral interlobular septal thickening, likely interstitial edema. Reading Location: [facility] Brain CT 02/24/25 15:10 IMPRESSION: 1. No acute intracranial abnormality. 2. Minimal left parietal scalp soft tissue swelling. Reading Location: [facility] Chest CTA 02/24/25 15:10 IMPRESSION: Pulmonary artery hypertension. Negative for pulmonary embolism Reading [facility] Chest X-Ray 02/24/25 15:55 IMPRESSION: 1. ET tube terminating 1.6 cm above the kaylan. Withdrawal of roughly 2.0 cm is suggested for better positioning. 2. OG tube tip in the proximal gastric body, and distal side port likely in the esophagus. Advancement of 7.0 cm is suggested for better positioning. 3. Bilateral interstitial thickening, may represent edema or infection. Reading Location: [facility] KUB X-Ray 02/24/25 17:00 IMPRESSION: 1. Enteric tube tip in the proximal stomach with distal side port in the esophagus. Advancement of approximately 7.0 cm is suggested for better positioning. 2. Bilateral interstitial changes, likely edema or infection. Reading Location: [id number] Assessment and Plan . Assessment and plan: 1. Acute resp failure 2. COPD/asthma exacerbation 3. ? PNA 4. Anemia 5. Anxiety 6. Depression 7. AV stenosis 8. RLS 9. A-fib 10. HTN -Increase RR from 16 to 24. Continue remainder of current vent settings. -Check ABG and LA in 1 hour. -Check CXR and ABG in the AM. -On Vanc, Zosyn and azithromycin. -Check blood cx, CRP and procal now. -On q4h duonebs. -On solumedrol 40 mg IV q8h. -Continue NS at 100 cc/hr. -Check utox now. -Check CMP, CBC and Mg in the AM. -NPO. On IV qday PPI and BID per tube Eliquis. Critical Care Time: 60 mins The entirety of this encounter was done via Telemedicine
[2025-02-24] MEDS: Acetaminophen 650 MG/20 ML UDC 1000 MG NG (21:17)
[2025-02-24] MEDS: APIXABAN 5 MG TABLET PO (21:18)
[2025-02-24] MEDS: Senna/Docusate Sodium 1 Tablet 2 TABLET PO (21:18)
[2025-02-24 21:25] LABS: CPK Total, Creatine Kinase 37 U/L (24-195); Triglycerides 495 mg/dL
[2025-02-24] MEDS: Propofol 10MG/Ml 1,000 MG/100 ML Bottle 19.1 MG CONT INF (22:08)
[2025-02-24] MEDS: Vancomycin HCl 1,000 MG in 0.9% Normal Saline (250mL Bag) 250 ML 250 MG IV (22:34)
[2025-02-24] MEDS: 0.9% Normal Saline (250mL Bag) 250 ML 15 ML IV (22:34)
[2025-02-24] MEDS: 0.9% Normal Saline (1000mL) 1,000 ML 100 ML IV (22:41)
[2025-02-24] MEDS: Piperacil/Tazobactam 3.375 GM in 0.9% Normal Saline (50mL MB+) 50 ML IV (22:41)
[2025-02-24 23:13] LABS: Barbiturate Urine NEGATIVE (< 200 ng/mL); Benzodiazepine Urine PRESUMPTIVE POSITIVE (< 200 ng/mL); PCP Urine NEGATIVE (< 25 ng/mL); THC Urine NEGATIVE (< 50 ng/mL)
[2025-02-24 23:20] LABS: CRP 111.00 mg/L (0.0-3.0); Procalcitonin 0.12 ng/mL (<=0.10)
[2025-02-24] MEDS: fentaNYL drip 100 ML 17.5 MCG CONT INF (23:53)
[2025-02-25] VITALS (40 sets, daily range): BP systolic 97–142; BP diastolic 58–80; PULSE 86–99; RESP 16–24; TEMP 37.1–38; O2SAT 91–100; BMI 26.7
[2025-02-25 00:08] LABS: Base Excess 4 mmol/L (-2 to +2); FI02 35.0; PEEP 5; PO2 71 mmHG (75-100); RR 16; SITE R Radial; SO2 95 % (94-98)
--- NOTE | 2025-02-25 01:00 | CPS ---
RR increased to 24 per critical care physician
--- NOTE | 2025-02-25 01:00 | PCM.RX.CS ---
Consult Antibiotic Management Pharmacy has been consulted to manage selected antibiotic: Vancomycin Type of Intervention Type of Consult: New start Labs Labs: Sodium 137 mmol/L (133-145) 02/24/25 13:16 Potassium 5.0 mmol/L (3.3-5.1) 02/24/25 13:16 Chloride 92 mmol/L (98-108) L 02/24/25 13:16 Carbon Dioxide 37.0 mmol/L (21.0-32.0) H 02/24/25 13:16 Anion Gap 7 (5-15) 02/24/25 13:16 BUN 25 mg/dL (4-19) H 02/24/25 13:16 Creatinine 0.48 mg/dL (0.70-1.20) L 02/24/25 13:16 Est GFR (MDRD) Non-Af 102 (>60) 02/24/25 13:16 BUN/Creatinine Ratio 52.3 RATIO (10-20) H 02/24/25 13:16 Glucose 141 mg/dL (70-99) H 02/24/25 13:16 Microbiology Microbiology: Microbiology 02/24/25 21:10 Mucosa - Nasopharyngeal Respiratory Panel (PCR) - Final 02/24/25 22:08 Urine Catheter - Alvarenga Legionella Antigen - Final 02/24/25 22:08 Urine Catheter - Alvarenga Streptococcus pneumoniae Antigen (M - Final 02/24/25 20:56 Nasal Secretion MRSA (PCR) - Final 02/24/25 13:36 Mucosa - Nose SARS-CoV-2, Influenza & RSV (PCR) - Final Dosing Weight Weight used for dosin.7 kg Estimated Creatinine Clearance Estimated Creatinine Clearance: 57.31 Goal Trough Goal Trough: 15-20 mcg/mL Pharmacy Plan for Drug Dosing Pharmacy Plan for Drug Dosing: Pharmacy Service will continue to monitor and adjust dosing as required. 1000MG LOADING DOSE GIVEN 02/24 @ 2234. START 500MG Q12H AND DRAW TROUGH PRIOR TO 4TH DOSE Follow-Up Labs Follow-Up Labs: Trough: Vancomycin Date/Time Labs Ordered Labs to be done on [date and time ordered]: 02/26 @ 1000
--- NOTE | 2025-02-25 01:43 | NURSING ---
5 rings removed from patient due to swelling (descriptions in patient beloning list), placed in cup and locked in med cigarette making examiner room.
[2025-02-25] MEDS: Propofol 10MG/Ml 1,000 MG/100 ML Bottle 19.1 MG CONT INF ×2 (02:08→06:30)
[2025-02-25] MEDS: fentaNYL drip 100 ML 17.5 MCG CONT INF ×4 (04:24→22:00)
[2025-02-25 05:14] LABS: Base Excess 5 mmol/L (-2 to +2); FI02 35.0; PEEP 5; PO2 66 mmHG (75-100); RR 24; SITE R Radial; SO2 94 % (94-98)
--- NOTE | 2025-02-25 05:20 | RAD_ITS ---
PROCEDURE: CHEST 1 VIEW (PORTABLE) 02/25/2025 REASON FOR EXAM: RESPIRATORY FAILURE TECHNIQUE: Frontal view of the chest. COMPARISON: 02/24/2025 FINDINGS: Devices: Endotracheal and enteric tubes in stable positioning. Lungs/Pleura: Unchanged small-moderate right pleural effusion. No sizable left pleural effusion. No pneumothorax. No new or developing airspace consolidation. Heart/Mediastinum: Stable cardiomegaly. Aortic arch calcification. Prior CABG. Bones/Soft tissues: No significant abnormality. RAD/Chest 1 View (Portable) IMPRESSION: Stable positioning of the endotracheal and enteric tubes. Stable cardiomegaly. Unchanged small-moderate right pleural effusion. Reading Location: [id number]
[2025-02-25] MEDS: Piperacil/Tazobactam 3.375 GM in 0.9% Normal Saline (50mL MB+) 50 ML IV ×3 (05:39→20:38)
[2025-02-25] MEDS: Acetaminophen 650 MG/20 ML UDC 1000 MG NG (05:40)
[2025-02-25] MEDS: CHLORHEXIDINE GLUC 2% CLOTH 1 EACH TOWELETTE TOPICAL (05:49)
[2025-02-25 05:59] LABS: Hematocrit 22.3 % (37-47); Hemoglobin 7.0 g/dL (12.0-15.0); Immature Granulocytes Count 0.020 X10^3/uL (0.0-0.0); Mean Corp Hgb Conc 31.4 g/dL (32-36); Mean Corpuscular Volume 78.2 fL (81-99); Mean Platelet Vol. 11.8 fl (6.2-12.0); NRBC Flagged by Analyzer 0 % (0-5); POSITIVE DIFFERENTIAL YES; Platelet Count 146 K/mm3 (150-450); RBC Distribution Width CV 15.7 % (11.6-14.6); RBC Distribution Width SD 44.4 fl (35.1-43.9); Red Blood Count 2.85 M/mm3 (4.2-5.4); White Blood Count 4.0 K/mm3 (4.4-11.0)
[2025-02-25 06:20] LABS: AST(SGOT) 27 U/L (<=31); Alanine Aminotransfer ALT/SGPT 32 U/L (<=34); Albumin, Serum 3.2 g/dL (3.4-4.8); Alkaline Phosphatase 50 U/L (35-104); Anion Gap 12 (5-15); BUN 20 mg/dL (4-19); BUN/Creat Ratio 42.3 RATIO (10-20); Calcium,Total 8.1 mg/dL (7.6-11.0); Carbon Dioxide 26.7 mmol/L (21.0-32.0); Chloride 100 mmol/L (98-108); Estimated Creatinine Clearance 64.14 ml/min (50-250); Globulin 2.3 g/dL (2.2-4.2); Glucose 144 mg/dL (70-99); Magnesium 1.7 mg/dL (1.5-2.2); Potassium 3.8 mmol/L (3.3-5.1)
--- NOTE | 2025-02-25 07:46 | PCM.RX.CS ---
Consult Antibiotic Management Pharmacy has been consulted to manage selected antibiotic: Vancomycin Type of Intervention Type of Consult: Follow-up Prior Doses of Antibiotics Prior Doses of Antibiotics Received/Current Regimen: the patient received an initial dose of 1000mg and the current dose is 500mg IV q12h but the patient has not received one of the 500mg doses yet Labs Labs: Sodium 139 mmol/L (133-145) 02/25/25 05:47 Potassium 3.8 mmol/L (3.3-5.1) 02/25/25 05:47 Chloride 100 mmol/L (98-108) 02/25/25 05:47 Carbon Dioxide 26.7 mmol/L (21.0-32.0) 02/25/25 05:47 Anion Gap 12 (5-15) 02/25/25 05:47 BUN 20 mg/dL (4-19) H 02/25/25 05:47 Creatinine 0.47 mg/dL (0.70-1.20) L 02/25/25 05:47 Est GFR (MDRD) Non-Af 103 (>60) 02/25/25 05:47 BUN/Creatinine Ratio 42.3 RATIO (10-20) H 02/25/25 05:47 Glucose 144 mg/dL (70-99) H 02/25/25 05:47 Microbiology Microbiology: Microbiology 02/24/25 21:10 Mucosa - Nasopharyngeal Respiratory Panel (PCR) - Final 02/24/25 22:08 Urine Catheter - Alvarenga Legionella Antigen - Final 02/24/25 22:08 Urine Catheter - Alvarenga Streptococcus pneumoniae Antigen (M - Final 02/24/25 20:56 Nasal Secretion MRSA (PCR) - Final 02/24/25 13:36 Mucosa - Nose SARS-CoV-2, Influenza & RSV (PCR) - Final Dosing Weight Weight used for dosin lb 8.451 oz Estimated Creatinine Clearance Estimated Creatinine Clearance: 64 ml/min Goal Trough Goal Trough: 15-20 mcg/mL Pharmacy Plan for Drug Dosing Pharmacy Plan for Drug Dosing: Due to changes in the documented weight of the patient and the current CrCl of 64 ml/min, will change the dose to 750mg q12h to start this morning 12 hours after the initial 1000mg dose. The timing of the trough level draw will stay the same. Pharmacy Service will continue to monitor and adjust dosing as required. Follow-Up Labs Follow-Up Labs: Trough: Vancomycin Date/Time Labs Ordered Labs to be done on [date and time ordered]: 02/26 10:00
[2025-02-25] MEDS: Chlorhexidine 15 ML PO ×2 (08:15→20:30)
--- NOTE | 2025-02-25 08:23 | PCM.PN.TICU ---
Objective Data Objective Data Vital Signs: Vital Signs Last response Temperature 37.4 C H 02/25/25 08:00 Temperature Source Core 02/25/25 08:00 Pulse Rate 95 02/25/25 08:00 Respiratory Rate 22 H 02/25/25 08:00 Respiratory Effort Mechanically Ventilated 02/25/25 04:00 Respiratory Depth Normal 02/25/25 04:00 Respiratory Pattern Tachypnea 02/25/25 06:52 Blood Pressure 109/64 02/25/25 08:00 Blood Pressure Mean 79 02/25/25 08:00 Blood Pressure Source Monitor 02/25/25 08:00 Blood Pressure Position Semi-Fowlers 02/25/25 08:00 Blood Pressure Location Right Arm 02/25/25 08:00 Pulse Ox 95 02/25/25 08:00 Oxygen Delivery Method Mechanical Ventilator 02/25/25 08:00 Oxygen Flow Rate (L/min) 3 02/24/25 15:23 Fraction of Inspired Oxygen (FIO2) 35 02/25/25 08:00 I&O: I&O Last 24 Hours 02/24/25 02/24/25 02/25/25 11:59 23:59 10:59 Intake Total 2859.17 / 3000.31 1791.29 / 1791.29 Output Total 50 / 50 550 / 550 Balance 2809.17 / 2950.31 1241.29 / 1241.29 I&O: Total Stay 02/24/25 13:06 thru 02/25/25 08:00 Intake Total 4650.46 Output Total 600 Balance 4050.46 Current Meds Ordered / Administered: Current meds ordered / Administered Generic Name Dose Route Start Last Admin Trade Name Nikita PRN Reason Stop Dose Admin Acetaminophen 1,000 mg 02/24/25 22:00 02/25/25 05:40 Acetaminophen 650 Mg/20 Ml Udc NG 1,000 mg Q8 HINA Administration Albuterol/Ipratropium 3 ml 02/24/25 20:22 02/25/25 06:52 Ipratropium/Albuterol Sulfate 3 Ml Ampul.Neb INHALATION 3 ml Q4H.RT HINA Administration Apixaban 5 mg 02/24/25 22:00 02/24/25 21:18 Apixaban 5 Mg Tablet PO 5 mg BID HINA Administration Chlorhexidine Gluconate 15 ml 02/25/25 10:00 02/25/25 08:15 Chlorhexidine 15 Ml PO 15 ml BID HINA Administration Chlorhexidine Gluconate 1 each 02/25/25 10:00 02/25/25 05:49 Chlorhexidine Gluc 2% Cloth 1 Each [place] TOPICAL 1 each DAILY HINA Administration Fentanyl 100 mls @ 2.5 mls/hr 02/24/25 15:45 02/25/25 08:00 CONT INF 175 mcg/hr UD HINA 17.5 mls/hr Protocol Titration 25 MCG/HR Propofol 1,000 mg in 100 mls @ 3.822 mls/hr 02/24/25 15:45 02/25/25 08:00 Diprivan CONT INF 50 mcg/kg/min .Q12H HINA 19.1 mls/hr Protocol Titration 10 MCG/KG/MIN Piperacillin Sod/Tazobactam 50 mls @ 12.5 mls/hr 02/24/25 19:00 02/25/25 05:39 Sod 3.375 gm/ Sodium Chloride IV 12.5 mls/hr Q8 HINA Administration Sodium Chloride 250 mls @ 15 mls/hr 02/24/25 20:42 02/25/25 05:03 IV 0 mls/hr .[id number] PRN Infusion Saline Flush Sodium Chloride 250 mls @ 15 mls/hr 02/24/25 20:42 IV .[id number] PRN Additional IVPB Infusion Vancomycin IV-PHARMACY TO DOSE 500 mls @ 250 mls/hr 02/25/25 01:03 EST 1 each/ Sodium Chloride IV DAILY PRN Rx to Dose Protocol Vancomycin HCl 750 mg/ Sodium 265 mls @ 250 mls/hr 02/25/25 10:30 Chloride IV Q12H [facility] Methylprednisolone Sodium Succinate 40 mg 02/24/25 22:00 02/25/25 05:40 Methylprednisolone Sod Succ 40 Mg/Ml Vial IV 02/25/25 22:01 40 mg Q8 HINA Administration Oxycodone HCl 2.5 - 5 mg 02/24/25 20:22 Oxycodone 5 Mg Tablet NG Q4H PRN PRN Pain Score 4-10 Senna/Docusate Sodium 2 tablet 02/24/25 22:00 02/24/25 21:18 Senna/Docusate Sodium 1 Tablet PO 2 tablet BID HINA Administration Sodium Chloride 10 - 40 ml 02/24/25 20:42 0.9% Saline Lock 10 Ml Syringe IV UD PRN SALINE FLUSH Vancomycin Protocol 1 lab 02/26/25 09:00 Vancomycin Trough/Random Due 02/26/25 11:00 DAILY [facility] Lab / Micro Data 02/25/25 09:32 02/25/25 05:47 Labs: Laboratory Results - last 24 hr 02/24/25 13:16: WBC 11.3 H, RBC 3.74 L, Hgb 8.9 L, Hct 30.5 L, MCV 81.6, MCH 23.8 L, MCHC 29.2 L, RDW Std Deviation 46.3 H, RDW Coeff of Augustin 15.4 H, Plt Count 168, MPV 10.2, Immature Gran % (Auto) 1.300 H, Neut % (Auto) 83.9 H, Lymph % (Auto) 9.1 L, [place] % (Auto) 5.2, Eos % (Auto) 0.1, Baso % (Auto) 0.4, Absolute Neuts (auto) 9.5 H, Absolute Lymphs (auto) 1.02, Nucleated RBC % 0, Sodium 137, Potassium 5.0, Chloride 92 L, Carbon Dioxide 37.0 H, Anion Gap 7, BUN 25 H, Creatinine 0.48 L, Estim Creat Clear Calc 57.31, Est GFR (MDRD) Non-Af 102, BUN/Creatinine Ratio 52.3 H, Glucose 141 H, Lactic Acid < 1.0, Calcium 8.8, Troponin T High Sens 27 H D, NT pro BNP II 1746 H 02/24/25 16:30: Magnesium 1.9, Troponin T Hi Sens 2 Hr 26 H 02/24/25 17:40: Total Creatine Kinase 37, Troponin T Hi Sens 4Hr 26 H, Triglycerides 495 H 02/24/25 22:08: Urine Opiates Screen NEGATIVE, U Buprenorphine Qual NEGATIVE, Ur Oxycodone Screen NEGATIVE, Urine Methadone Screen NEGATIVE, Urine Fentanyl Screen PRESUMPTIVE POSITIVE, Ur Barbiturates Screen NEGATIVE, Ur Phencyclidine Scrn NEGATIVE, Ur Amphetamines Screen NEGATIVE, U Benzodiazepines Scrn PRESUMPTIVE POSITIVE, Urine Cocaine Screen NEGATIVE, U Cannabinoids Screen NEGATIVE 02/24/25 22:12: Lactic Acid 1.0, C-React Prot Ext Range 111.00 H, Procalcitonin 0.12 H 02/25/25 05:47: WBC 4.0 L, RBC 2.85 L, Hgb 7.0 L, Hct 22.3 L, MCV 78.2 L, MCH 24.6 L, MCHC 31.4 L D, RDW Std Deviation 44.4 H, RDW Coeff of Augustin 15.7 H, Plt Count 146 L, MPV 11.8, Immature Gran % (Auto) 0.500, Neut % (Auto) 88.2 H, Lymph % (Auto) 8.8 L, [place] % (Auto) 2.5, Eos % (Auto) 0.0, Baso % (Auto) 0.0, Absolute Neuts (auto) 3.5, Absolute Lymphs (auto) 0.35 L, Nucleated RBC % 0, Sodium 139, Potassium 3.8, Chloride 100, Carbon Dioxide 26.7, Anion Gap 12, BUN 20 H, Creatinine 0.47 L, Estim Creat Clear Calc 64.14, Est GFR (MDRD) Non-Af 103, BUN/Creatinine Ratio 42.3 H, Glucose 144 H, Calcium 8.1, Phosphorus 1.3 L*, Magnesium 1.7, Total Bilirubin 0.33, AST 27, ALT 32, Alkaline Phosphatase 50, Total Protein 5.4 L, Albumin 3.2 L, Globulin 2.3, Albumin/Globulin Ratio 1.4, TSH 0.118 L Micro: Microbiology 02/24/25 21:10 Mucosa - Nasopharyngeal Respiratory Panel (PCR) - Final 02/24/25 22:08 Urine Catheter - Alvarenga Legionella Antigen - Final 02/24/25 22:08 Urine Catheter - Alvarenga Streptococcus pneumoniae Antigen (M - Final 02/24/25 20:56 Nasal Secretion MRSA (PCR) - Final 02/24/25 13:36 Mucosa - Nose SARS-CoV-2, Influenza & RSV (PCR) - Final ABG Data ABG results: ABG 02/24/25 02/24/25 02/24/25 13:50 15:06 17:05 Specimen Type RENNY ART ART Sample Site Not entered L Radial L Brach pH 7.10 L* 7.22 L Bicarbonate Actual 38.5 H 37.3 H Total CO2 42 40 Base Excess 9 H 10 H O2 Saturation 91 L 39 L O2 % 35.0 35.0 ABG pCO2 123.4 H* 92.3 H* ABG pO2 87 29 L* Issa Test Positive Positive VBG pH 7.15 L* VBG pO2 52 H VBG HCO3 40 H VBG Total CO2 43 H VBG O2 Sat (Calc) 71 H VBG Base Excess 11 H POC Mix VBG pCO2 Pt Tmp 113.4 H* Respiration Rate 12 14 O2 Delivery Device Not entered BiPAP Adult Vent Vent Mode BiLevel AC Tidal Volume 400.0 400.0 POC PEEP 8 5 Crit Call To/Read Back Yes Yes Yes Blood Gas Notified Whom robert robert robert Blood Gas Notified Time 13:52:25 15:08:11 17:07:00 02/25/25 02/25/25 00:04 05:10 Specimen Type ART ART Sample Site R Radial R Radial pH 7.47 H 7.50 H Bicarbonate Actual 27.5 H 28.0 H Total CO2 29 29 Base Excess 4 H 5 H O2 Saturation 95 94 O2 % 35.0 35.0 ABG pCO2 38.0 36.4 ABG pO2 71 L 66 L Issa Test N/A N/A VBG pH VBG pO2 VBG HCO3 VBG Total CO2 VBG O2 Sat (Calc) VBG Base Excess POC Mix VBG pCO2 Pt Tmp Respiration Rate 16 24 O2 Delivery Device Adult Vent Adult Vent Vent Mode AC AC Tidal Volume 400.0 400.0 POC PEEP 5 5 Crit Call To/Read Back Blood Gas Notified Whom Blood Gas Notified Time Imaging Radiology Impression Abdomen/Pelvis CT 02/24/25 15:10 IMPRESSION: 1. Diffuse biliary ductal prominence. No obstructing lesions seen. Findings can be seen in the postcholecystectomy state however would correlate with clinical signs of cholestasis. 2. Dependent atelectasis/infiltrates in both lower lobes. 3. Bilateral interlobular septal thickening, likely interstitial edema. Reading Location[facility] [address] 02/24/25 15:10 IMPRESSION: 1. No acute intracranial abnormality. 2. Minimal left parietal scalp soft tissue swelling. Reading Location: [facility] Chest CTA 02/24/25 15:10 IMPRESSION: Pulmonary artery hypertension. Negative for pulmonary embolism Reading Location: [facility] Chest X-Ray 02/24/25 15:55 IMPRESSION: 1. ET tube terminating 1.6 cm above the kaylan. Withdrawal of roughly 2.0 cm is suggested for better positioning. 2. OG tube tip in the proximal gastric body, and distal side port likely in the esophagus. Advancement of 7.0 cm is suggested for better positioning. 3. Bilateral interstitial thickening, may represent edema or infection. Reading Location: [facility] KUB X-Ray 02/24/25 17:00 IMPRESSION: 1. Enteric tube tip in the proximal stomach with distal side port in the esophagus. Advancement of approximately 7.0 cm is suggested for better positioning. 2. Bilateral interstitial changes, likely edema or infection. Reading Location: [facility] Chest X-Ray 02/24/25 18:25 IMPRESSION: Well-positioned endotracheal and enteric tubes. Reading Location: [facility] Chest X-Ray 02/25/25 05:20 IMPRESSION: Stable positioning of the endotracheal and enteric tubes. Stable cardiomegaly. Unchanged small-moderate right pleural effusion. Reading Location: [facility] Assessment and Plan . Assessment and plan: Critical Care Time: The entirety of this encounter was done via Telemedicine Subjective Subjective Pt seen and examined. Wakes up agitated and is not following commands. T102 overnight. Good UOP. Prop @ 50 Fent @ 175 NS @ 100 x1L (close to finishing) 20 400 5 35 PE: General: Well developed, +MV HEENT: anicteric Sclera; + ETT, nl nose; supple neck, no masses Cardiovascular: Regular Rate and Rhythm; No murmurs, rubs, gallops; no displaced PMI Respiratory: diminished; no crackles, wheezes, or rhonchi Abdominal: Non-tender; Non distended; hypoBS x 4; No Hepatosplenomegaly Extremities: Warm, well perfused; No clubbing, cyanosis; capillary refill < 2 sec Neurological: sedated, responsive A/P: #Acute resp failure #COPD/asthma exacerbation #?PNA #Anemia #Anxiety #Depression #AV stenosis #RLS #A-fib #HTN -Cont MV; settings reviewed/adjusted; F/U ABG/CXR; sedation/analgesia; SAT/SBT likely tomorrow -Cont emp IV Abx- Vanc, Zosyn and azithromycin; F/U Cx -Cont nebs; IV methylpred -Will finish 1L then monitor off maintenance fluids; strict I/Os; monitor lytes NPO --> TFs Eliquis, PPI Guarded prognosis Critical Care Time: 50 min The entirety of this encounter was done via Telemedicine
--- NOTE | 2025-02-25 09:22 | PCM.PN.HOSP ---
Reason for Visit Chief Complaint: Shortness of breath/AMS Objective Data Objective Data Vital Signs: Vital Signs Temp Pulse Resp BP Pulse Ox O2 Del Method O2 Flow Rate 99.4 F H 95 22 H 109/64 95 Mechanical Ventilator 3 02/25/25 08:00 02/25/25 08:00 02/25/25 08:00 02/25/25 08:00 02/25/25 08:00 02/25/25 08:00 02/24/25 15:23 FiO2 35 02/25/25 08:00 Oxygen Flow Rate (L/min) 3 Oxygen Delivery Method Mechanical Ventilator Weight: 156 lb 8.451 oz Body Mass Index (BMI) 26.7 Intake & Output: Intake and Output for Last 24 Hours 02/23/25 02/24/25 02/25/25 23:59 23:59 22:59 Intake Total 2859.17 / 3000.31 1791.29 / 1791.29 Output Total 50 / 50 550 / 550 Balance 2809.17 / 2950.31 1241.29 / 1241.29 Lab / Micro Data 02/25/25 05:47 02/25/25 05:47 Labs: Laboratory Results - last 24 hr 02/24/25 13:16: WBC 11.3 H, RBC 3.74 L, Hgb 8.9 L, Hct 30.5 L, MCV 81.6, MCH 23.8 L, MCHC 29.2 L, RDW Std Deviation 46.3 H, RDW Coeff of Augustin 15.4 H, Plt Count 168, MPV 10.2, Immature Gran % (Auto) 1.300 H, Neut % (Auto) 83.9 H, Lymph % (Auto) 9.1 L, [place] % (Auto) 5.2, Eos % (Auto) 0.1, Baso % (Auto) 0.4, Absolute Neuts (auto) 9.5 H, Absolute Lymphs (auto) 1.02, Nucleated RBC % 0, Sodium 137, Potassium 5.0, Chloride 92 L, Carbon Dioxide 37.0 H, Anion Gap 7, BUN 25 H, Creatinine 0.48 L, Estim Creat Clear Calc 57.31, Est GFR (MDRD) Non-Af 102, BUN/Creatinine Ratio 52.3 H, Glucose 141 H, Lactic Acid < 1.0, Calcium 8.8, Troponin T High Sens 27 H D, NT pro BNP II 1746 H 02/24/25 16:30: Magnesium 1.9, Troponin T Hi Sens 2 Hr 26 H 02/24/25 17:40: Total Creatine Kinase 37, Troponin T Hi Sens 4Hr 26 H, Triglycerides 495 H 02/24/25 22:08: Urine Opiates Screen NEGATIVE, U Buprenorphine Qual NEGATIVE, Ur Oxycodone Screen NEGATIVE, Urine Methadone Screen NEGATIVE, Urine Fentanyl Screen PRESUMPTIVE POSITIVE, Ur Barbiturates Screen NEGATIVE, Ur Phencyclidine Scrn NEGATIVE, Ur Amphetamines Screen NEGATIVE, U Benzodiazepines Scrn PRESUMPTIVE POSITIVE, Urine Cocaine Screen NEGATIVE, U Cannabinoids Screen NEGATIVE 02/24/25 22:12: Lactic Acid 1.0, C-React Prot Ext Range 111.00 H, Procalcitonin 0.12 H 02/25/25 05:47: WBC 4.0 L, RBC 2.85 L, Hgb 7.0 L, Hct 22.3 L, MCV 78.2 L, MCH 24.6 L, MCHC 31.4 L D, RDW Std Deviation 44.4 H, RDW Coeff of Augustin 15.7 H, Plt Count 146 L, MPV 11.8, Immature Gran % (Auto) 0.500, Neut % (Auto) 88.2 H, Lymph % (Auto) 8.8 L, [place] % (Auto) 2.5, Eos % (Auto) 0.0, Baso % (Auto) 0.0, Absolute Neuts (auto) 3.5, Absolute Lymphs (auto) 0.35 L, Nucleated RBC % 0, Sodium 139, Potassium 3.8, Chloride 100, Carbon Dioxide 26.7, Anion Gap 12, BUN 20 H, Creatinine 0.47 L, Estim Creat Clear Calc 64.14, Est GFR (MDRD) Non-Af 103, BUN/Creatinine Ratio 42.3 H, Glucose 144 H, Calcium 8.1, Phosphorus 1.3 L*, Magnesium 1.7, Total Bilirubin 0.33, AST 27, ALT 32, Alkaline Phosphatase 50, Total Protein 5.4 L, Albumin 3.2 L, Globulin 2.3, Albumin/Globulin Ratio 1.4, TSH 0.118 L Micro: Microbiology 02/24/25 21:10 Mucosa - Nasopharyngeal Respiratory Panel (PCR) - Final 02/24/25 22:08 Urine Catheter - Alvarenga Legionella Antigen - Final 02/24/25 22:08 Urine Catheter - Alvarenga Streptococcus pneumoniae Antigen (M - Final 02/24/25 20:56 Nasal Secretion MRSA (PCR) - Final 02/24/25 13:36 Mucosa - Nose SARS-CoV-2, Influenza & RSV (PCR) - Final ABG Data ABG results: ABG 02/24/25 02/24/25 02/24/25 13:50 15:06 17:05 Specimen Type RENNY ART ART Sample Site Not entered L Radial L Brach pH 7.10 L* 7.22 L Bicarbonate Actual 38.5 H 37.3 H Total CO2 42 40 Base Excess 9 H 10 H O2 Saturation 91 L 39 L O2 % 35.0 35.0 ABG pCO2 123.4 H* 92.3 H* ABG pO2 87 29 L* Issa Test Positive Positive VBG pH 7.15 L* VBG pO2 52 H VBG HCO3 40 H VBG Total CO2 43 H VBG O2 Sat (Calc) 71 H VBG Base Excess 11 H POC Mix VBG pCO2 Pt Tmp 113.4 H* Respiration Rate 12 14 O2 Delivery Device Not entered BiPAP Adult Vent Vent Mode BiLevel AC Tidal Volume 400.0 400.0 POC PEEP 8 5 Crit Call To/Read Back Yes Yes Yes Blood Gas Notified Whom robert robert robert Blood Gas Notified Time 13:52:25 15:08:11 17:07:00 02/25/25 02/25/25 00:04 05:10 Specimen Type ART ART Sample Site R Radial R Radial pH 7.47 H 7.50 H Bicarbonate Actual 27.5 H 28.0 H Total CO2 29 29 Base Excess 4 H 5 H O2 Saturation 95 94 O2 % 35.0 35.0 ABG pCO2 38.0 36.4 ABG pO2 71 L 66 L Issa Test N/A N/A VBG pH VBG pO2 VBG HCO3 VBG Total CO2 VBG O2 Sat (Calc) VBG Base Excess POC Mix VBG pCO2 Pt Tmp Respiration Rate 16 24 O2 Delivery Device Adult Vent Adult Vent Vent Mode AC AC Tidal Volume 400.0 400.0 POC PEEP 5 5 Crit Call To/Read Back Blood Gas Notified Whom Blood Gas Notified Time Radiography Diagnostic Testing: Radiology Impression Abdomen/Pelvis CT 02/24/25 15:10 IMPRESSION: 1. Diffuse biliary ductal prominence. No obstructing lesions seen. Findings can be seen in the postcholecystectomy state however would correlate with clinical signs of cholestasis. 2. Dependent atelectasis/infiltrates in both lower lobes. 3. Bilateral interlobular septal thickening, likely interstitial edema. Reading Location: [facility] Brain CT 02/24/25 15:10 IMPRESSION: 1. No acute intracranial abnormality. 2. Minimal left parietal scalp soft tissue swelling. Reading Location: [facility] Chest CTA 02/24/25 15:10 IMPRESSION: Pulmonary artery hypertension. Negative for pulmonary embolism Reading [facility] Chest X-Ray 02/24/25 15:55 IMPRESSION: 1. ET tube terminating 1.6 cm above the kaylan. Withdrawal of roughly 2.0 cm is suggested for better positioning. 2. OG tube tip in the proximal gastric body, and distal side port likely in the esophagus. Advancement of 7.0 cm is suggested for better positioning. 3. Bilateral interstitial thickening, may represent edema or infection. Reading Location: [facility] KUB X-Ray 02/24/25 17:00 IMPRESSION: 1. Enteric tube tip in the proximal stomach with distal side port in the esophagus. Advancement of approximately 7.0 cm is suggested for better positioning. 2. Bilateral interstitial changes, likely edema or infection. Reading Location: [facility] Chest X-Ray 02/24/25 18:25 IMPRESSION: Well-positioned endotracheal and enteric tubes. Reading Location: [facility] Chest X-Ray 02/25/25 05:20 IMPRESSION: Stable positioning of the endotracheal and enteric tubes. Stable cardiomegaly. Unchanged small-moderate right pleural effusion. Reading Location: [facility] Physical Exam Narrative General: Intubated, sedated HEENT: Atraumatic, Normocephalic. Oral: ETT tube Neck: Supple, could not evaluate JVD negative Carotid Bruits Chest wall/Lungs: Air entry diminished in all lung bradley. Coarse wheezing/rhonchi Cardiovascular: Sinus tachycardia, ejection systolic murmur Abdomen: Bowel Sounds Present, Soft, Non Tender, Non-Distended : Alvarenga catheter inserted in ED no renal angle tenderness. No suprapubic tenderness. Extremities: Minimal to mild, chronic edema, Capillary Refill Less than 3 Seconds Skin: No rashes, No breakdown Musculoskeletal: No Tenderness to Palpation of Joints or Extremities. ROM could not be evaluated Neurological: Neuroexam could not be evaluated,sedated Psych/Mental Status: Intubated/flat affect Assessment & Plan Assessment/Plan (1) Acute exacerbation of chronic obstructive pulmonary disease: (2) Acute on chronic respiratory failure with hypoxia and hypercapnia: PLAN: Plan This 69-year-old female being admitted for acute on chronic combined respiratory failure 1. Acute on chronic combined hypercarbic and hypoxic respiratory failure most likely due to COPD exacerbation: Patient is intubated. Chest x-ray today reviewed. ETT and OG tube in good position. Portable suboptimal quality chest x-ray shows increased interstitial markings suggestive of COPD with flattened diaphragm. Official report pending. ABG 7.10/123/87/30 8.5. It is suggestive of acute hypercarbic respiratory failure with high AA gradient/hypoxia. 02/25: Discussed with mat sewer, Dr. Bess. Imagings reviewed. Chest CT more shows septal thickening and ground glass opacity. Hold diuretics as needed from tomorrow. 2. COPD exacerbation: Patient is being managed on scheduled bronchodilator, IV Solu-Medrol, Mucinex, incentive spirometry and Pep. In first week of January 2025 for similar condition due to COPD exacerbation from multifocal pneumonia. Patient had some dried blood in the mouth probably from intubation. CT abdomen/pelvis was done even though no clinical indication. Not officially reported yet but imagings reviewed. It shows fecal matter. 3. Atypical pneumonia unlikely possible interstitial/atypical: Patient had 99.6, low-grade with mild sinus tachycardia: Empirically started on IV Zosyn. MRSA nasal screen ordered. Pneumonia workup ordered. Triple PCR for SARS-CoV-2, flu and RSV are negative. Chest CTA negative for PE but main pulmonary artery segment enlarged 3.07 cm dilated suggestive of pulmonary artery hypertension. Thickening of interlobular septa with no discrete pulmonary mass or mari consolidation. Mild atelectasis in the lingula. 02/24: Urinary antigens are negative. Respiratory panel negative. Nasal MRSA negative. Neurosurgery Spine Physician suggested empiric antibiotics for possible pneumonia but when cultures are negative can discontinue it. For now continue empiric antibiotic 4. Paroxysmal A-fib, severe aortic stenosis: Currently twelve-lead EKG reviewed shows sinus tachycardia 102 beats from, ZHANE, QTc 469 ms. During last admission in February 17, she was A-fib with RVR. Echo in January 26 2025 shows EF 70% with severe aortic stenosis and patient on workup for TAVR in [place] but not done yet as per patient's boyfriend, present in ED. She also had heart cath about 1 to 2 months ago there as an workup, no document available to review. Diuresis as needed. Mildly elevated troponin, 27, 26. Third troponin pending. 5. Anxiety and depression: Currently intubated. 6. DVT prophylaxis: On Eliquis 5 mg p.o. twice daily Living will/advanced directive/end of life care: Patient does not have living will or advanced directive. Her boyfriend presented to the ER is next of kin rethe process of making power of divorce attorney for health. After discussion of benefits/risks procedures involved with full code, DNR CC arrest and DNR CC, the patient's boyfriend opted for full code although she is already intubated Patient does want artificial life support including intubation, tube feed, ventilator and/chest compression, central venous catheter, vasopressor and DC shock if needed Total time spent in [id number] encounter in discussion of advanced directive 17 minutes. Microbiology Past 72 Hours 02/24/25 21:10 Mucosa - Nasopharyngeal Respiratory Panel (PCR) - Final 02/24/25 22:08 Urine Catheter - Alvarenga Legionella Antigen - Final 02/24/25 22:08 Urine Catheter - Alvarenga Streptococcus pneumoniae Antigen (M - Final 02/24/25 20:56 Nasal Secretion MRSA (PCR) - Final 02/24/25 13:36 Mucosa - Nose SARS-CoV-2, Influenza & RSV (PCR) - Final Laboratory Results 02/24/25 13:16: WBC 11.3 H, RBC 3.74 L, Hgb 8.9 L, Hct 30.5 L, MCV 81.6, MCH 23.8 L, MCHC 29.2 L, RDW Std Deviation 46.3 H, RDW Coeff of Augustin 15.4 H, Plt Count 168, MPV 10.2, Immature Gran % (Auto) 1.300 H, Neut % (Auto) 83.9 H, Lymph % (Auto) 9.1 L, [place] % (Auto) 5.2, Eos % (Auto) 0.1, Baso % (Auto) 0.4, Absolute Neuts (auto) 9.5 H, Absolute Lymphs (auto) 1.02, Nucleated RBC % 0, Sodium 137, Potassium 5.0, Chloride 92 L, Carbon Dioxide 37.0 H, Anion Gap 7, BUN 25 H, Creatinine 0.48 L, Estim Creat Clear Calc 57.31, Est GFR (MDRD) Non-Af 102, BUN/Creatinine Ratio 52.3 H, Glucose 141 H, Lactic Acid < 1.0, Calcium 8.8, Troponin T High Sens 27 H D, NT pro BNP II 1746 H 02/24/25 13:50: Specimen Type RENNY, Sample Site Not entered, VBG pH 7.15 L*, VBG pO2 52 H, VBG HCO3 40 H, VBG Total CO2 43 H, VBG O2 Sat (Calc) 71 H, VBG Base Excess 11 H, POC Mix VBG pCO2 Pt Tmp 113.4 H*, O2 Delivery Device Not entered, Crit Call To/Read Back Yes, Blood Gas Notified Whom robert, Blood Gas Notified Time 13:52:25 02/24/25 15:06: Specimen Type ART, Sample Site L Radial, pH 7.10 L*, Bicarbonate Actual 38.5 H, Total CO2 42, Base Excess 9 H, O2 Saturation 91 L, O2 % 35.0, ABG pCO2 123.4 H*, ABG pO2 87, Issa Test Positive, Respiration Rate 12, O2 Delivery Device BiPAP, Vent Mode BiLevel, Tidal Volume 400.0, POC PEEP 8, Crit Call To/Read Back Yes, Blood Gas Notified Whom robert, Blood Gas Notified Time 15:08:11 02/24/25 16:30: Magnesium 1.9, Troponin T Hi Sens 2 Hr 26 H 02/24/25 17:05: Specimen Type ART, Sample Site L Brach, pH 7.22 L, Bicarbonate Actual 37.3 H, Total CO2 40, Base Excess 10 H, O2 Saturation 39 L, O2 % 35.0, ABG pCO2 92.3 H*, ABG pO2 29 L*, Issa Test Positive, Respiration Rate 14, O2 Delivery Device Adult Vent, Vent Mode AC, Tidal Volume 400.0, POC PEEP 5, Crit Call To/Read Back Yes, Blood Gas Notified Whom robert, Blood Gas Notified Time 17:07:00 02/24/25 17:40: Total Creatine Kinase 37, Troponin T Hi Sens 4Hr 26 H, Triglycerides 495 H 02/24/25 22:08: Urine Opiates Screen NEGATIVE, U Buprenorphine Qual NEGATIVE, Ur Oxycodone Screen NEGATIVE, Urine Methadone Screen NEGATIVE, Urine Fentanyl Screen PRESUMPTIVE POSITIVE, Ur Barbiturates Screen NEGATIVE, Ur Phencyclidine Scrn NEGATIVE, Ur Amphetamines Screen NEGATIVE, U Benzodiazepines Scrn PRESUMPTIVE POSITIVE, Urine Cocaine Screen NEGATIVE, U Cannabinoids Screen NEGATIVE 02/24/25 22:12: Lactic Acid 1.0, C-React Prot Ext Range 111.00 H, Procalcitonin 0.12 H 02/25/25 00:04: Specimen Type ART, Sample Site R Radial, pH 7.47 H, Bicarbonate Actual 27.5 H, Total CO2 29, Base Excess 4 H, O2 Saturation 95, O2 % 35.0, ABG pCO2 38.0, ABG pO2 71 L, Issa Test N/A, Respiration Rate 16, O2 Delivery Device Adult Vent, Vent Mode AC, Tidal Volume 400.0, POC PEEP 5 02/25/25 05:10: Specimen Type ART, Sample Site R Radial, pH 7.50 H, Bicarbonate Actual 28.0 H, Total CO2 29, Base Excess 5 H, O2 Saturation 94, O2 % 35.0, ABG pCO2 36.4, ABG pO2 66 L, Issa Test N/A, Respiration Rate 24, O2 Delivery Device Adult Vent, Vent Mode AC, Tidal Volume 400.0, POC PEEP 5 02/25/25 05:47: WBC 4.0 L, RBC 2.85 L, Hgb 7.0 L, Hct 22.3 L, MCV 78.2 L, MCH 24.6 L, MCHC 31.4 L D, RDW Std Deviation 44.4 H, RDW Coeff of [place] 15.7 H, Plt Count 146 L, MPV 11.8, Immature Gran % (Auto) 0.500, Neut % (Auto) 88.2 H, Lymph % (Auto) 8.8 L, [place] % (Auto) 2.5, Eos % (Auto) 0.0, Baso % (Auto) 0.0, Absolute Neuts (auto) 3.5, Absolute Lymphs (auto) 0.35 L, Nucleated RBC % 0, Sodium 139, Potassium 3.8, Chloride 100, Carbon Dioxide 26.7, Anion Gap 12, BUN 20 H, Creatinine 0.47 L, Estim Creat Clear Calc 64.14, Est GFR (MDRD) Non-Af 103, BUN/Creatinine Ratio 42.3 H, Glucose 144 H, Calcium 8.1, Phosphorus 1.3 L*, Magnesium 1.7, Total Bilirubin 0.33, AST 27, ALT 32, Alkaline Phosphatase 50, Total Protein 5.4 L, Albumin 3.2 L, Globulin 2.3, Albumin/Globulin Ratio 1.4, TSH 0.118 L Clinical Impression(s) from Imaging Studies Abdomen/Pelvis CT 02/24/25 15:10 IMPRESSION: 1. Diffuse biliary ductal prominence. No obstructing lesions seen. Findings can be seen in the postcholecystectomy state however would correlate with clinical signs of cholestasis. 2. Dependent atelectasis/infiltrates in both lower lobes. 3. Bilateral interlobular septal thickening, likely interstitial edema. Reading Location: [facility] Brain CT 02/24/25 15:10 IMPRESSION: 1. No acute intracranial abnormality. 2. Minimal left parietal scalp soft tissue swelling. Reading Location: [facility] Chest CTA 02/24/25 15:10 IMPRESSION: Pulmonary artery hypertension. Negative for pulmonary embolism Reading [facility] Charges/Coding Visit Charges Inpatient E&M: 19762 Subs Hosp L3
[2025-02-25] MEDS: Potassium Phosphate 45 MM in 0.9% Normal Saline (500mL Bag) 500 ML 85 MM IV (09:27)
[2025-02-25] MEDS: 0.9% Saline Lock 10 ML Syringe IV ×2 (09:33→22:45)
[2025-02-25 09:41] LABS: Hematocrit 22.8 % (37-47); Hemoglobin 7.0 g/dL (12.0-15.0)
[2025-02-25] MEDS: APIXABAN 5 MG TABLET PO (09:43)
[2025-02-25] MEDS: Senna/Docusate Sodium 1 Tablet 2 TABLET PO (09:43)
[2025-02-25] MEDS: Pantoprazole Sodium 40 MG in 0.9% Normal Saline (100mL MB+) 100 ML 300 MG IV (10:13)
[2025-02-25] MEDS: Vancomycin HCl 750 MG in 0.9% Normal Saline (250mL Bag) 250 ML 250 MG IV ×2 (10:52→22:44)
[2025-02-25] MEDS: Propofol 10MG/Ml 1,000 MG/100 ML Bottle 21.3 MG CONT INF ×3 (11:33→20:30)
[2025-02-25] MEDS: Vital AF 1.2 Cal Liquid 1,000 ML 20 ML GT (13:32)
[2025-02-25] MEDS: Senna/Docusate Sodium 1 Tablet 2 TABLET GT (20:31)
[2025-02-26] VITALS (36 sets, daily range): BP systolic 96–162; BP diastolic 51–91; PULSE 81–127; RESP 18–21; TEMP 36.7–38.4; O2SAT 92–100; BMI 28.0
[2025-02-26] MEDS: Propofol 10MG/Ml 1,000 MG/100 ML Bottle 21.3 MG CONT INF ×2 (00:10→04:14)
[2025-02-26 03:28] LABS: Hematocrit 22.4 % (37-47); Hemoglobin 7.3 g/dL (12.0-15.0); Immature Granulocytes Count 0.030 X10^3/uL (0.0-0.0); Mean Corp Hgb Conc 32.6 g/dL (32-36); Mean Corpuscular Volume 75.2 fL (81-99); Mean Platelet Vol. 10.8 fl (6.2-12.0); NRBC Flagged by Analyzer 0 % (0-5); POSITIVE DIFFERENTIAL YES; Platelet Count 179 K/mm3 (150-450); RBC Distribution Width CV 16.6 % (11.6-14.6); RBC Distribution Width SD 45.1 fl (35.1-43.9); Red Blood Count 2.98 M/mm3 (4.2-5.4); White Blood Count 4.7 K/mm3 (4.4-11.0)
[2025-02-26 03:56] LABS: Anion Gap 8 (5-15); BUN 15 mg/dL (4-19); BUN/Creat Ratio 29.2 RATIO (10-20); Calcium,Total 8.2 mg/dL (7.6-11.0); Carbon Dioxide 27.2 mmol/L (21.0-32.0); Chloride 102 mmol/L (98-108); Estimated Creatinine Clearance 64.14 ml/min (50-250); Glucose 159 mg/dL (70-99); Potassium 3.9 mmol/L (3.3-5.1)
[2025-02-26] MEDS: fentaNYL drip 100 ML 17.5 MCG CONT INF (04:00)
[2025-02-26] MEDS: CHLORHEXIDINE GLUC 2% CLOTH 1 EACH TOWELETTE TOPICAL (04:14)
[2025-02-26 04:46] LABS: Base Excess 5 mmol/L (-2 to +2); FI02 35.0; PEEP 5; PO2 76 mmHG (75-100); RR 20; SITE R Radial; SO2 96 % (94-98)
[2025-02-26] MEDS: Piperacil/Tazobactam 3.375 GM in 0.9% Normal Saline (50mL MB+) 50 ML IV ×3 (05:24→20:43)
[2025-02-26] MEDS: TITRATION PARAMETER CHANGE 1 EACH IV (05:24)
--- NOTE | 2025-02-26 06:56 | PN.HOSP_ITS ---
Reason for Visit Chief Complaint: Shortness of breath/AMS Subjective Subjective Patient is a 69-year-old lady with history of COPD admitted with progressive shortness of breath Objective Data Objective Data Vital Signs: Vital Signs Temp Pulse Resp BP Pulse Ox O2 Del Method O2 Flow Rate 98.5 F 89 20 H 110/67 97 Mechanical Ventilator 3 02/26/25 06:00 02/26/25 06:00 02/26/25 06:00 02/26/25 06:00 02/26/25 06:00 02/26/25 06:00 02/24/25 15:23 FiO2 35 02/26/25 06:00 Oxygen Flow Rate (L/min) 3 Oxygen Delivery Method Mechanical Ventilator Weight: 74.5 kg Body Mass Index (BMI) 28.0 Intake & Output: Intake and Output for Last 24 Hours 02/24/25 02/25/25 02/26/25 23:59 22:59 23:59 Intake Total 2859.17 / 3000.31 4017.99 / 4156.79 782.70 / 782.70 Output Total 50 / 50 765 / 1090 625 / 625 Balance 2809.17 / 2950.31 3252.99 / 3066.79 157.70 / 157.70 Lab / Micro Data 02/26/25 03:20 02/26/25 03:20 Labs: Laboratory Results - last 24 hr 02/25/25 09:32: Hgb 7.0 L, Hct 22.8 L 02/26/25 03:20: WBC 4.7, RBC 2.98 L, Hgb 7.3 L, Hct 22.4 L, MCV 75.2 L, MCH 24.5 L, MCHC 32.6, RDW Std Deviation 45.1 H, RDW Coeff of Augustin 16.6 H, Plt Count 179, MPV 10.8, Immature Gran % (Auto) 0.600, Neut % (Auto) 87.4 H, Lymph % (Auto) 7.6 L, Weber % (Auto) 4.4, Eos % (Auto) 0.0, Baso % (Auto) 0.0, Absolute Neuts (auto) 4.1, Absolute Lymphs (auto) 0.36 L, Nucleated RBC % 0, Sodium 137, Potassium 3.9, Chloride 102, Carbon Dioxide 27.2, Anion Gap 8, BUN 15, Creatinine 0.51 L, Estim Creat Clear Calc 64.14, Est GFR (MDRD) Non-Af 101, BUN/Creatinine Ratio 29.2 H, Glucose 159 H, Calcium 8.2 Micro: Microbiology 02/24/25 22:21 Sputum, Induced/Lukens Gram Stain - Final 02/24/25 21:10 Mucosa - Nasopharyngeal Respiratory Panel (PCR) - Final 02/24/25 22:08 Urine Catheter - Alvarenga Legionella Antigen - Final 02/24/25 22:08 Urine Catheter - Alvarenga Streptococcus pneumoniae Antigen (M - Final 02/24/25 20:56 Nasal Secretion MRSA (PCR) - Final 02/24/25 13:36 Mucosa - Nose SARS-CoV-2, Influenza & RSV (PCR) - Final ABG Data ABG results: ABG 02/26/25 04:42 Specimen Type ART Sample Site R Radial pH 7.45 Bicarbonate Actual 28.8 H Total CO2 30 Base Excess 5 H O2 Saturation 96 O2 % 35.0 ABG pCO2 41.5 ABG pO2 76 Issa Test N/A Respiration Rate 20 O2 Delivery Device Adult Vent Vent Mode AC Tidal Volume 400.0 POC PEEP 5 Physical Exam Narrative GENERAL: Patient on the vent restless HEENT: Atraumatic; normocephalic EYES; Anicteric, Normal Conjunctiva NECK; supple, normal thyroid, RESPIRATORY: Diminished to auscultation CARDIOVASCULAR: Regular S1 S2, GI: soft, normoactive bowel sounds, : No Renal angle tenderness; EXTREMITIES: Edema of both upper and lower extremity MUSCULOSKELETAL: no muscle wasting NEURO: no lateralizing signs. SKIN: No Rash PSYCH; restless on the vent Assessment & Plan Assessment/Plan (1) Acute exacerbation of chronic obstructive pulmonary disease: (2) Acute on chronic respiratory failure with hypoxia and hypercapnia: PLAN: Plan Patient is a 69-year-old lady with history of COPD admitted with progressive shortness of breath 1. Acute on chronic hypoxic and hypercapnic respiratory failure – Patient intubated admitted to the intensive care unit. Vent management deferred to religious leader 2. COPD with acute exacerbation – Patient management bronchodilator treatment 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 and antibiotics 3. Atypical pneumonia – Imaging studies demonstrated by lateral interstitial thickening edema versus infection patient placed on broad-spectrum antibiotic therapy cultures sent 4. Acute congestive heart failure with preserved ejection for – Patient has edema as well as elevated proBNP. Echo from 01/26/2025 demonstrated EF of 70%. Patient started on furosemide with daily monitoring of I's and O's weights as electrolytes 4. Paroxysmal atrial fibrillation – Rate controlled, systemic anticoagulation with apixaban 5. Valvular heart disease with severe aortic stenosis – Patient has apparently been evaluated for TAVR at [facility]. Recommendation is for patient to follow-up following extubation 6. Depression with anxiety – Patient appears restless on the vent patient has been started on Precedex 7. Anemia – Secondary to chronic disorder monitoring H&H and transfuse if patient becomes symptomatic or hemoglobin falls below 7 8. DVT prophylaxis – On apixaban Time spent in the patient's overall evaluation,decision-making process, review of diagnostic data, adjustment of management, discussion with other providers, nursing nursing and ancillary staff involved in patient's care documentation, 50 Minutes Charges/Coding Visit Charges Inpatient E&M: 37916 Subs Hosp L3
[2025-02-26] MEDS: Propofol 10MG/Ml 1,000 MG/100 ML Bottle 22.4 MG CONT INF (07:31)
--- NOTE | 2025-02-26 07:31 | PN.CC_ITS ---
Assessment & Plan Assessment/Plan (1) Acute on chronic respiratory failure with hypoxia and hypercapnia: PLAN: Plan RECOMMENDATIONS: 1. Continue assist-control mode of mechanical ventilation. Wean FiO2 and PEEP to maintain saturations at or above 90%. 2. Attempt spontaneous awakening trial this morning. If the patient fails her SAT, will initiate Precedex and wean from propofol. 3. Continue empiric antibiotics, pending sputum culture results. 4. Continue bronchodilator therapy. 5. Continue to hold Eliquis secondary to underlying anemia. 6. Continue tube feeding for nutritional support. 7. Continue appropriate GI prophylaxis. 8. Continue to monitor blood counts and transfuse if hemoglobin drops below 7 g/dL. Check fecal occult blood. IMPRESSIONS: 1. Acute on chronic combined respiratory failure Unclear if this was truly precipitated by the patient's COPD with concurrent panic attacks versus sequelae of her valvular heart disease. Her presentation was once again similar to that encountered in January 2025. Her chest imaging on this admission is not overtly concerning for underlying pneumonia. The patient does have a known extensive tobacco abuse history with questionable COPD. She has not followed on an outpatient basis by a testing projects administrator. At the present time, it is reasonable to continue empiric antimicrobials along with bronchodilators, pending culture results. If sputum culture is negative, we will plan to discontinue antibiotics. Continue tube feeding for nutritional support as tolerated. Will attempt a spontaneous awakening trial this morning. If the patient does not do well with her SAT, we will initiate Precedex and attempt to wean from propofol. 2. History of aortic valve stenosis/atrial fibrillation The patient needs to continue her outpatient workup and follow-up for possible TAVR. The patient has been maintained on Eliquis as an outpatient. However, due to her presenting anemia, we will plan to hold her systemic anticoagulation for now. 3. History of restless leg syndrome/anxiety/depression/former tobacco dependency/history of non-small cell lung cancer status post right lobectomy Complicates care, management, recovery and prognosis. Continue supportive measures as noted above. TIME: 35 minutes of critical care time, independent of procedures, was spent addressing the patient's acute on chronic combined respiratory failure, aortic valve stenosis, atrial fibrillation, anemia, review of all data and collaboration with care team. Subjective Subjective The patient was seen and examined at the bedside this morning. Events from the last 24 hours have been reviewed. The patient is currently afebrile, hemodynamically stable and maintaining appropriate oxygen saturations on assist- control mode mechanical ventilation with an FiO2 requirement of 35%. The patient is currently documented to be overall net +6.2 L for the hospitalization. White blood cell count is normal. Hemoglobin was noted to be 7.3 g/dL with a platelet count of 179,000. Arterial blood gas this morning was notable for a pH of 7.45 with a pCO2 of 41 and pO2 of 76. Chemistry profile was unremarkable. Objective Data Objective Data The patient's most recent lab work, culture data and imaging studies have all been personally reviewed. Surface echocardiogram last completed on January 26 demonstrated an ejection fraction of 70%. Blood and sputum cultures are pending. Vital Signs: Vital Signs Temp Pulse Resp BP Pulse Ox O2 Del Method O2 Flow Rate 98.7 F 97 20 H 108/60 93 Mechanical Ventilator 3 02/26/25 07:00 02/26/25 07:03 02/26/25 07:03 02/26/25 07:00 02/26/25 07:03 02/26/25 07:00 02/24/25 15:23 FiO2 35 02/26/25 07:03 Oxygen Flow Rate (L/min) 3 Oxygen Delivery Method Mechanical Ventilator Weight: 164 lb 3.91 oz Body Mass Index (BMI) 28.0 Intake & Output: Intake and Output for Last 24 Hours 02/24/25 02/25/25 02/26/25 23:59 22:59 23:59 Intake Total 2859.17 / 3000.31 4017.99 / 4156.79 822.60 / 822.60 Output Total 50 / 50 765 / 1090 625 / 625 Balance 2809.17 / 2950.31 3252.99 / 3066.79 197.60 / 197.60 Lab / Micro Data Attestation: I reviewed the patient's lab results. 02/26/25 03:20 02/26/25 03:20 Labs: Laboratory Results - last 24 hr 02/25/25 09:32: Hgb 7.0 L, Hct 22.8 L 02/26/25 03:20: WBC 4.7, RBC 2.98 L, Hgb 7.3 L, Hct 22.4 L, MCV 75.2 L, MCH 24.5 L, MCHC 32.6, RDW Std Deviation 45.1 H, RDW Coeff of Augustin 16.6 H, Plt Count 179, MPV 10.8, Immature Gran % (Auto) 0.600, Neut % (Auto) 87.4 H, Lymph % (Auto) 7.6 L, [place] % (Auto) 4.4, Eos % (Auto) 0.0, Baso % (Auto) 0.0, Absolute Neuts (auto) 4.1, Absolute Lymphs (auto) 0.36 L, Nucleated RBC % 0, Sodium 137, Potassium 3.9, Chloride 102, Carbon Dioxide 27.2, Anion Gap 8, BUN 15, Creatinine 0.51 L, Estim Creat Clear Calc 64.14, Est GFR (MDRD) Non-Af 101, BUN/Creatinine Ratio 29.2 H, Glucose 159 H, Calcium 8.2 Micro: Microbiology 02/24/25 22:21 Sputum, Induced/Lukens Gram Stain - Final 02/24/25 21:10 Mucosa - Nasopharyngeal Respiratory Panel (PCR) - Final 02/24/25 22:08 Urine Catheter - Alvarenga Legionella Antigen - Final 02/24/25 22:08 Urine Catheter - [place]ga Streptococcus pneumoniae Antigen (M - Final 02/24/25 20:56 Nasal Secretion MRSA (PCR) - Final 02/24/25 13:36 Mucosa - Nose SARS-CoV-2, Influenza & RSV (PCR) - Final ABG Data ABG results: ABG 02/26/25 04:42 Specimen Type ART Sample Site R Radial pH 7.45 Bicarbonate Actual 28.8 H Total CO2 30 Base Excess 5 H O2 Saturation 96 O2 % 35.0 ABG pCO2 41.5 ABG pO2 76 Issa Test N/A Respiration Rate 20 O2 Delivery Device Adult Vent Vent Mode AC Tidal Volume 400.0 POC PEEP 5 Physical Exam Const Constitutional Narrative: Intubated, sedated and mechanically ventilated. HEENT normocephalic and head/scalp atraumatic Mouth: endotracheal tube in place and OG tube in place Eyes PERRL, conjunctivae normal and no scleral icterus Neck supple General: trachea midline Chest inspection of chest normal Resp normal respiratory effort Auscultation: diminished lung sounds; Negative for rales, rhonchi or wheezes Cardio S1 normal heart sound and S2 normal heart sound Rhythm: abnormal rhythm Heart Sounds: murmur GI soft to palpation and non-tender Extremity General Extremity: edema; Negative for clubbing Skin no rashes or lesions noted Neuro Sensorium / Orientation: sedated on vent Charges/Coding Procedures Hospitalists Procedures: 90533 Critical Care 1st Hr
[2025-02-26] MEDS: Chlorhexidine 15 ML PO ×2 (07:54→20:43)
[2025-02-26] MEDS: Senna/Docusate Sodium 1 Tablet 2 TABLET GT ×2 (07:55→20:42)
[2025-02-26] MEDS: dexMEDEtomidine 400 MCG in 0.9% Normal Saline (100mL Bag) 96 ML 18.6 MCG CONT INF (08:30)
--- NOTE | 2025-02-26 08:42 | CASEMGMT ---
Addendum entered by Marion Browne 02/26/25 09:26: Social Work SW participated in ICU rounds. SW called pt's significant other Mike. He states pt has not completed the POA documents. SW explained to Mike that without the documents, pt's sons would be her decision makers. Pt's son Nathaniel's information is in the chart. The other son is Vilma. As per Mike, Vilma is not on speaking terms w/pt. Mike does not have a number for him, is not sure if Nathaniel would have his number or not. SW inquired how pt was doing since left [facility]. He states he does believe pt was taking her medications. She was to have a follow up at [facility], but pt has not gotten to that yet. He states he picked her up before 12 on 02/23. On 02/24 in the morning she was calling out to him and eventually asked for the ambulance. SW will continue to follow for appropriate discharge plan. Palliative care referral made, SW updated GRADUATE STUDENT of pt's next of kin. ANAM Markham Original Note: Social Work Pt is familiar to this SW from prior hospital stays. There are no POA/LW documents on file at [facility]. SW called [facility], as pt was there recently. [place] confirms pt left on 02/23. They do not have any POA for healthcare documents on file. [place] reminded SW that pt does have a CM through [facility], Palma Bhatti. KHADIJAH called Palma from [facility] to inform her pt is here. She states that pt did well at [facility]. She states she saw pt on Wednesday before she was d/c home however, and had concerns as pt did not know who Palma was, and pt seemed concerned about returning home. Palma also confirms pt did not complete POA papers. She also confirms pt has just two children. She states [facility] did set pt up w/HHC through [facility]. Her services through [facility] are 4.5 hours of aide services Wednesday through Wednesday w/[place], and a [employer] button. SW will keep Palma informed as pt's stay continues. SW will continue to follow. Pt is on a ventilator at this time, will be available for discharge planning when appropriate, and follow up again w/pt, when she is able, to complete POA for HC. ANAM Markham
[2025-02-26 08:49] LABS: Pro- Brain NATRIURETIC PEPTIDE 1286 pg/mL (<=900)
[2025-02-26] MEDS: Pantoprazole Sodium 40 MG in 0.9% Normal Saline (100mL MB+) 100 ML 300 MG IV (09:27)
[2025-02-26] MEDS: fentaNYL drip 100 ML 20 MCG CONT INF ×3 (10:21→20:20)
[2025-02-26] MEDS: dexMEDEtomidine 400 MCG in 0.9% Normal Saline (100mL Bag) 96 ML 27.9 MCG CONT INF ×3 (11:55→18:55)
--- NOTE | 2025-02-26 14:54 | CPS ---
pt tried to pull ETT out. ETT was 23cm at the lip, after pulling on the tube it was at 21cm at the lip. This RT was able to push the tube back to 24cm at the lip. Chest xray ordered at this time
--- NOTE | 2025-02-26 14:55 | RAD_ITS ---
PROCEDURE: CXR FOR LINE PLACEMENT 02/26/2025 REASON FOR EXAM: ETT PLACEMENT TECHNIQUE: Procedure Code: RADCXRLP Modality: DX Procedure: CXR FOR LINE PLACEMENT COMPARISON: Prior study done on February 25, 2025. FINDINGS: The tip of the endotracheal tube is at 3.4 cm proximal the kaylan. An orogastric tube is seen with the tip below the left hemidiaphragm. Hyperinflation. Stable mild increased markings at the lung bases as well as in the right lung apex. There has been improved aeration as compared to prior study. RAD/CXR for Line Placement IMPRESSION: The tip of the endotracheal tube is at 3.4 cm proximal the kaylan. Improved aeration of both lungs with mild degree of residual linear markings at the lung bases and right upper lobe. Reading Location: [id number]
[2025-02-26] MEDS: Propofol 10MG/Ml 1,000 MG/100 ML Bottle 4.5 MG CONT INF ×2 (15:00→15:12)
--- NOTE | 2025-02-26 15:00 | PCM.CONS.P ---
[facility] Medical History Palliative care encounter Acute anemia Acute respiratory insufficiency Anxiety Anxiety and depression Respiratory insufficiency COPD with acute exacerbation Afib Aortic valve stenosis RLS (restless legs syndrome) History of ETOH abuse Chronic hypoxic respiratory failure, on home oxygen therapy COPD (chronic obstructive pulmonary disease) Anxiety Depression Smoker Asthma Hypertension Migraines Home Medications Medication Instructions Recorded Last Taken Type albuterol sulfate 90 mcg/actuation 1 - 2 puff inhalation Q4H PRN PRN 04/18/13 09/23/14 History aerosol inhaler (Ventolin HFA) Bronchodialation montelukast 10 mg tablet 10 mg PO DAILY allergies 04/18/13 09/23/14 History 10 MG tiotropium bromide 18 mcg capsule 1 puff inhalation DAILY wheezing 04/18/13 09/23/14 History with inhalation device (Spiriva with HandiHaler) Oxygen, Home [Home Oxygen] 2.5 lpm PRN PRN Dyspnea 10/22/13 09/23/14 History sertraline 100 mg tablet 100 mg PO BID mood 10/22/13 09/23/14 History Ropinirole Hcl 0.25 mg PO QHS restless legs 09/23/14 Unknown History ipratropium 0.5 mg-albuterol 3 mg 3 ml inhalation Q4HWA.RT wheezing 05/13/16 Unknown Rx (2.5 mg base)/3 mL nebulization ##30 soln cholecalciferol (vitamin D3) 50 50 mcg PO DAILY vitamin 10/18/23 Unknown History mcg (2,000 unit) capsule (Vitamin D3) ipratropium 0.5 mg-albuterol 3 mg 3 ml inhalation Q6H PRN shortness 10/18/23 Unknown Rx (2.5 mg base)/3 mL nebulization of breath or wheezing #180 mL soln buspirone 10 mg tablet 10 mg PO BID anxiety 10/02/24 Unknown History hydrocodone-acetaminophen 5-325mg 1 tab PO BID PRN PRN pain 10/03/24 Unknown History 5mg-325mg nicotine 14 mg/24 hr daily 14 mg transdermal DAILY prn #28 ea 10/09/24 Unknown Rx transdermal patch apixaban 5 mg tablet (Eliquis) 5 mg PO BID blood thinne #60 tabs 11/03/24 Unknown Rx carvedilol 6.25 mg tablet 6.25 mg PO BID bp #60 tabs 11/03/24 Unknown Rx furosemide 20 mg tablet 20 mg PO DAILY fluid overload 12/27/24 Unknown History pantoprazole 40 mg tablet,delayed 40 mg PO BID GERD #60 tabs 12/30/24 Unknown Rx release verapamil 180 mg 24 hr 180 mg PO BID #60 caps 12/30/24 Unknown Rx capsule,extended release OXYGEN - Supplemental ([facility] hypoxia 01/27/25 Unknown History INFORMATIONAL USE ONLY) alprazolam 0.25 mg tablet 0.25 mg PO Q6H PRN PRN Anxiety 3 01/31/25 Unknown Rx days #12 tabs potassium chloride 10 mEq 10 meq PO DAILYCM 30 days #0 tabs 01/31/25 Unknown Rx tablet,extended release(part/cryst) prednisone 20 mg tablet See Taper PO BREAKFAST #32 tabs 01/31/25 Unknown Rx bisacodyl 10 mg rectal suppository 10 mg DE ONCE 02/08/25 Unknown History cyanocobalamin (vitamin B-12) 500 500 mcg PO QDAY 02/08/25 Unknown History mcg tablet Allergy/AdvReac Type Severity Reaction Status Date / Time No Known Allergies Allergy Verified 02/12/25 08:52 Family History Mother Hypertension Throat cancer Father Hypertension Stomach cancer Surgical History H/O exploratory laparotomy History of lung surgery History of cholecystectomy Social History household members: significant other and none housing: apartment Smoking Status: Former smoker alcohol intake: former substance use type: does not use ROS Review of Systems ROS Unobtainable: due to endotracheal tube and due to mental status Physical Exam Const Constitutional Narrative: Patient is currently intubated and sedated Orientation / Consciousness: lethargic HEENT normocephalic Lymph Lymphatic: lymphedema Resp Auscultation: wheezes and diminished lung sounds Cardio Rate: tachycardic GI soft to palpation Auscultation: hypoactive bowel sounds Extremity normal capillary refill Skin no rashes or lesions noted Neuro Gait (Neuro): unable to assess gait Motor Exam: general weakness Psych Psych Narrative: Unable to assess Charges/Coding Palliative Care Palliative Care: [id number] New Pt Consult 80+ min HPI Consult Data Date of Consult: 02/26/25 Location of consult: ICU Reason for referral: Goals of care Referral source: Dr. Guzmán Palliative care diagnosis (Summary list): Severe aortic stenosis intubated HPI Narrative HPI Narrative: PAIN ASSESSMENT Pt appears comfortable. Prior to meeting with the patient at bedside I reviewed labs and radiological studies I also reviewed reviewed documentation from this admission and previous admissions. I then met with the patient, Ting at bedside. She is currently intubated and on sedation. I did meet with with the patients significant other,, Mike,in the room. I introduced myself and the concept of palliative care in which he voluntarily accepted the services. I did explain what palliative care is an how it could benefit Denia. He is open to further conversations, particularly the possibility of having her have pallaitive care follow her from an outpatient standpoint. He stated that they are familiar with SNF in the event they recommend rehab at discharge, once medically stable. Pt is currently ferberile, possible a reaction to initiating of presidex for sedation. She is tachycardic and normaltensive. Pt was able to communicate prior to increasing sedation as she did try to extubate herself. Pt does have severe aortic stenosis and needs a TAVR, which she is planning to have once medically stable, per significant other. She is being hampered by extreme anxiety. This is the patients second admission for the same compllaint. Following last admission she was sent to a nursing facility for rehab on 01/31/25. She was discharged to home and was home for one day before being readmitted for dyspnea. All questions were answered. Palliative care will continue to follow for goals of care conversations as clinical picture evolves. Per hospitalist, "DENIA MARC, is a 69 F who presents was discharged from [facility] about a day ago was brought by EMS for worsening shortness of breath on, hypoxia, SpO2 84% home oxygen 3 L, and then 88% on 12 L of nonbreathing mask. ETCO2 80 mmHg. In ED, patient was put temporarily on BiPAP and then intubated because of extreme shortness of breath/altered mental status Patient's boyfriend arrived later and after talking to him, patient did not had chest pain pressure or tightness. Denies fever. Might have cough which is not clear. Patient on IV propofol and fentanyl drip after intubation. Blood pressure was high but came down after starting IV propofol. Lab, imaging and assessment and plan discussed in assessment plan " Per web manager:"Unclear if this was truly precipitated by the patient's COPD with concurrent panic attacks versus sequelae of her valvular heart disease. Her presentation was once again similar to that encountered in January 2025. Her chest imaging on this admission is not overtly concerning for underlying pneumonia. The patient does have a known extensive tobacco abuse history with questionable COPD. She has not followed on an outpatient basis by a balance truer. At the present time, it is reasonable to continue empiric antimicrobials along with bronchodilators, pending culture results. If sputum culture is negative, we will plan to discontinue antibiotics. Continue tube feeding for nutritional support as tolerated. Will attempt a spontaneous awakening trial. If the patient does not do well with her SAT, we will initiate Precedex and attempt to wean from propofol." This note was generated with Get[employer]guide dictation software. It may contain incorrect words, spelling, and punctuation that were not noted in checking the note before signing. Palliative Assessment Advanced Directive - Current Admission Advance Directive: Advance Directive ON ADMISSION - REFERENCE Do you have a Healthcare Yes 02/24/25 20:40 Living Will? Is a Healthcare Living Will No, requested patient bring 02/24/25 20:40 present in the medical record? copy into [facility] Do you have a Healthcare Power No 02/24/25 20:40 of Private Secretary? Is a Healthcare Power of No, requested patient bring 02/24/25 13:29 Private Secretary present in the copy into [facility] medical rec Do You Want Additional Yes 02/24/25 20:40 Information on Advanced Directives or Healthcare Proxy/DPOA comments: no formal POA Psychosocial/Spiritual Information Living situation/Marital status: lives with significant other, Mike. Geographic location: [place] Supports: Significant other Spiritual distress: Unable to assess Prior functional status: pt is normally able to perform own ADL's but does experience dyspnea with exertion Cultrual issues: None identified Information about the patient as a person: Patient enjoys watching television and visiting with friends and significant other Symptoms Palliative performance scale: 30% prior to admission Palliative prognostic index: 9.5 Dyspnea symptoms: Severe Weakness symptoms: Moderate Side Effects & Interventions: Unable to assess all symptoms. Objective Data Objective Data Vital Signs: Vital Signs Temp Pulse Resp BP Pulse Ox O2 Del Method O2 Flow Rate 100.3 F H 122 H 20 H 130/75 H 97 Mechanical Ventilator 30 02/26/25 13:00 02/26/25 14:52 02/26/25 14:52 02/26/25 13:00 02/26/25 14:52 02/26/25 13:00 02/26/25 11:00 FiO2 35 02/26/25 14:52 Oxygen Flow Rate (L/min) 30 Oxygen Delivery Method Mechanical Ventilator Weight: 164 lb 3.91 oz Body Mass Index (BMI) 28.0 Intake & Output: Intake and Output for Last 24 Hours 02/24/25 02/25/25 02/26/25 23:59 22:59 23:59 Intake Total 2859.17 / 3000.31 4017.99 / 4156.79 1419.70 / 1419.70 Output Total 50 / 50 765 / 1090 1275 / 1275 Balance 2809.17 / 2950.31 3252.99 / 3066.79 144.70 / 144.70 Lab / Micro Data Attestation: I reviewed the patient's lab results. Lab results narrative: Slight improvement of hemoglobin from yesterday. Today is 7.3 whereas yesterday was 7.0. 02/26/25 03:20 02/26/25 03:20 Labs: Laboratory Results - last 24 hr 02/26/25 03:20: WBC 4.7, RBC 2.98 L, Hgb 7.3 L, Hct 22.4 L, MCV 75.2 L, MCH 24.5 L, MCHC 32.6, RDW Std Deviation 45.1 H, RDW Coeff of Augustin 16.6 H, Plt Count 179, MPV 10.8, Immature Gran % (Auto) 0.600, Neut % (Auto) 87.4 H, Lymph % (Auto) 7.6 L, [place] % (Auto) 4.4, Eos % (Auto) 0.0, Baso % (Auto) 0.0, Absolute Neuts (auto) 4.1, Absolute Lymphs (auto) 0.36 L, Nucleated RBC % 0, Sodium 137, Potassium 3.9, Chloride 102, Carbon Dioxide 27.2, Anion Gap 8, BUN 15, Creatinine 0.51 L, Estim Creat Clear Calc 64.14, Est GFR (MDRD) Non-Af 101, BUN/Creatinine Ratio 29.2 H, Glucose 159 H, Calcium 8.2 02/26/25 08:22: NT pro BNP II 1286 H Micro: Microbiology 02/24/25 22:21 Sputum, Induced/Lukens Gram Stain - Final 02/24/25 21:10 Mucosa - Nasopharyngeal Respiratory Panel (PCR) - Final 02/24/25 22:08 Urine Catheter - Alvarenga Legionella Antigen - Final 02/24/25 22:08 Urine Catheter - Al[place]renga Streptococcus pneumoniae Antigen (M - Final 02/24/25 20:56 Nasal Secretion MRSA (PCR) - Final 02/24/25 13:36 Mucosa - Nose SARS-CoV-2, Influenza & RSV (PCR) - Final ABG Data ABG results: ABG 02/26/25 04:42 Specimen Type ART Sample Site R Radial pH 7.45 Bicarbonate Actual 28.8 H Total CO2 30 Base Excess 5 H O2 Saturation 96 O2 % 35.0 ABG pCO2 41.5 ABG pO2 76 Issa Test N/A Respiration Rate 20 O2 Delivery Device Adult Vent Vent Mode AC Tidal Volume 400.0 POC PEEP 5 Rhythm Strip Rhythm Strip: Sinus Tach Impressions & Recommendations Patient & Family Issues discussed with the patient and family: Family states patient would want to continue aggressive medical management Patient goal: pt is unable to participate Family goal: continue aggressive medical treatment Ethical & Legal Ethical and legal: pt is currently unable to participate in meaningful conversations. Impressions Impressions: pt would benefit from outpatient pallitiave care Recommentation Palliative recommendations: outpatient palliative care Encouter Achieved as a result of this Palliative Care Encounter: [[id number], [id number], [phone] ] minutes were spent in total for this visit which consisted, primarily of counseling and education dealing with the complex and emotionally intense issues of symptom management and palliative care in the setting of serious and potentially life-threatening illness. Review of documentation, labs and radiological studies. Patient/family had the opportunity to ask questions Plan (1) Acute on chronic respiratory failure with hypoxia and hypercapnia: PLAN: Medical management per primary team (2) Multifocal pneumonia: PLAN: Medical management per primary team (3) Acute exacerbation of chronic obstructive pulmonary disease: PLAN: Medical management per primary team (4) Chronic anemia: PLAN: Medical management per primary team (5) Pneumonia: PLAN: Medical management per primary team (6) Anxiety and depression: PLAN: Medical management per primary team (7) Goals of care, counseling/discussion: PLAN: *Discussion with significant other about goals of care going forward *Once patient is able to will have additional conversations about goals of care. PLAN: Plan *Recommend palliative care outpatient services
--- NOTE | 2025-02-26 15:37 | PCM.HOSP.N ---
Hospitalist Note Patient was reported to have pulled out her ET tube. Was therefore notified by patient's nurse. Upon arrival patient to was not completely. Respiratory was able to respond to subsequent checks x-ray ordered did show The tip of the endotracheal tube is at 3.4 cm proximal the kaylan. Improved aeration of both lungs with mild degree of residual linear markings at the lung bases and right upper lobe.. With patient sedation not being adequate and order was given for patient to be started on propofol
--- NOTE | 2025-02-26 19:00 | NURSING ---
Per dayshival RN, Vital AF @ 10 ml/hr per Dr. Guzmán d/t high residuals.
[2025-02-26] MEDS: dexMEDEtomidine 1,000 MCG in 0.9% Normal Saline (250mL Bag) 240 ML 27.9 MCG CONT INF (22:55)
[2025-02-26] MEDS: Propofol 10MG/Ml 1,000 MG/100 ML Bottle 13.4 MG CONT INF (22:55)
[2025-02-26] MEDS: Vital AF 1.2 Cal Liquid 1,000 ML 10 ML GT (23:00)
[2025-02-27] VITALS (33 sets, daily range): BP systolic 77–190; BP diastolic 50–98; PULSE 79–160; RESP 16–26; TEMP 37.8–38.3; O2SAT 75–100; BMI 28.5
[2025-02-27] MEDS: fentaNYL drip 100 ML 20 MCG CONT INF ×5 (01:49→22:47)
[2025-02-27] MEDS: 0.9% Saline Lock 10 ML Syringe IV (04:23)
[2025-02-27] MEDS: Propofol 10MG/Ml 1,000 MG/100 ML Bottle 13.4 MG CONT INF (04:23)
[2025-02-27] MEDS: CHLORHEXIDINE GLUC 2% CLOTH 1 EACH TOWELETTE TOPICAL (04:23)
[2025-02-27] MEDS: Piperacil/Tazobactam 3.375 GM in 0.9% Normal Saline (50mL MB+) 50 ML IV ×3 (05:08→21:15)
[2025-02-27] MEDS: TITRATION PARAMETER CHANGE 1 EACH IV (05:08)
--- NOTE | 2025-02-27 07:24 | PCM.PN.HOSP ---
Reason for Visit Chief Complaint: Shortness of breath/AMS Subjective Subjective Patient attempted self extubation the day prior. Her sedation had to be adjusted with addition of propofol. Repeat chest x-ray following her attempted self extubation demonstrated appropriate placement of the ET tube. She also did receive Lasix the day prior however remains in net positive fluid balance of 1 L. Objective Data Objective Data Vital Signs: Vital Signs Temp Pulse Resp BP Pulse Ox O2 Del Method O2 Flow Rate 100.4 F H 88 20 H 84/63 L 95 Mechanical Ventilator 30 02/27/25 07:00 02/27/25 07:00 02/27/25 07:00 02/27/25 07:00 02/27/25 07:00 02/27/25 07:00 02/26/25 11:00 FiO2 35 02/27/25 07:00 Oxygen Flow Rate (L/min) 30 Oxygen Delivery Method Mechanical Ventilator Weight: 75.8 kg Body Mass Index (BMI) 28.5 Intake & Output: Intake and Output for Last 24 Hours 02/25/25 02/26/25 02/27/25 22:59 23:59 23:59 Intake Total 4017.99 / 4156.79 3157.47 / 3218.77 607.14 / 607.14 Output Total 765 / 1090 1875 / 1875 550 / 550 Balance 3252.99 / 3066.79 1282.47 / 1343.77 57.14 / 57.14 Lab / Micro Data 02/26/25 03:20 02/26/25 03:20 Labs: Laboratory Results - last 24 hr 02/26/25 08:22: NT pro BNP II 1286 H Micro: Microbiology 02/27/25 02:50 Stool Stool Occult Blood (MODE) - Final Occult Blood Positive 02/24/25 13:30 Blood Culture (Wb) - Anticubital Left Blood Culture - Preliminary No growth in 48 hours. 02/24/25 13:14 Blood Culture (Wb) - Anticubital Right Blood Culture - Preliminary No growth in 48 hours. 02/24/25 22:21 Sputum, Induced/Lukens Gram Stain - Final 02/24/25 21:10 Mucosa - Nasopharyngeal Respiratory Panel (PCR) - Final 02/24/25 22:08 Urine Catheter - Alvarenga Legionella Antigen - Final 02/24/25 22:08 Urine Catheter - Alvarenga Streptococcus pneumoniae Antigen (M - Final 02/24/25 20:56 Nasal Secretion MRSA (PCR) - Final 02/24/25 13:36 Mucosa - Nose SARS-CoV-2, Influenza & RSV (PCR) - Final Radiography Diagnostic Testing: Radiology Impression Chest X-Ray 02/26/25 14:55 IMPRESSION: The tip of the endotracheal tube is at 3.4 cm proximal the kaylan. Improved aeration of both lungs with mild degree of residual linear markings at the lung bases and right upper lobe. Reading Location: [id number] Rhythm Strip Rhythm Strip: Sinus Tach Physical Exam Narrative GENERAL: Patient on the vent restless HEENT: Atraumatic; normocephalic EYES; Anicteric, Normal Conjunctiva NECK; supple, normal thyroid, RESPIRATORY: Diminished to auscultation CARDIOVASCULAR: Regular S1 S2, GI: soft, normoactive bowel sounds, : No Renal angle tenderness; EXTREMITIES: Edema of both upper and lower extremity MUSCULOSKELETAL: no muscle wasting NEURO: no lateralizing signs. SKIN: No Rash PSYCH; restless on the vent Assessment & Plan Assessment/Plan (1) Acute exacerbation of chronic obstructive pulmonary disease: (2) Acute on chronic respiratory failure with hypoxia and hypercapnia: PLAN: Plan Patient is a 69-year-old lady with history of COPD admitted with progressive shortness of breath 1. Acute on chronic hypoxic and hypercapnic respiratory failure – Patient intubated admitted to the intensive care unit. Vent management deferred to senior qc technician – 02/27/2025;Patient attempted self extubation the day prior. Her sedation had to be adjusted with addition of propofol. Repeat chest x-ray following her attempted self extubation demonstrated appropriate placement of the ET tube. 2. COPD with acute exacerbation – Patient management bronchodilator treatment 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 and antibiotics 3. Atypical pneumonia – Imaging studies demonstrated by lateral interstitial thickening edema versus infection patient placed on broad-spectrum antibiotic therapy cultures sent 4. Acute congestive heart failure with preserved ejection for – Patient has edema as well as elevated proBNP. Echo from 01/26/2025 demonstrated EF of 70%. Patient started on furosemide with daily monitoring of I's and O's weights as electrolytes – 02/27/2025;She also did receive Lasix the day prior however remains in net positive fluid balance of 1 L. 4. Paroxysmal atrial fibrillation – Rate controlled, systemic anticoagulation with apixaban 5. Valvular heart disease with severe aortic stenosis – Patient has apparently been evaluated for TAVR at [facility]. Recommendation is for patient to follow-up following extubation 6. Depression with anxiety – Patient appears restless on the vent patient has been started on Precedex 7. Anemia – Secondary to chronic disorder monitoring H&H and transfuse if patient becomes symptomatic or hemoglobin falls below 7 8. DVT prophylaxis – On apixaban Time spent in the patient's overall evaluation,decision-making process, review of diagnostic data, adjustment of management, discussion with other providers, nursing nursing and ancillary staff involved in patient's care documentation, 52 Minutes Charges/Coding Visit Charges Inpatient E&M: 548[address] [facility] Hosp L3
--- NOTE | 2025-02-27 07:32 | PCM.PN.INT ---
Assessment & Plan Assessment/Plan (1) Acute on chronic respiratory failure with hypoxia and hypercapnia: PLAN: Plan RECOMMENDATIONS: 1. Given failed extubation, will resume assist-control mode mechanical ventilation at prior settings. 2. Obtain follow-up ABG and chest x-ray. 3. Continue empiric antimicrobials and bronchodilators. 4. Continue to hold Eliquis secondary to underlying anemia. 5. Resume tube feeding for nutritional support. 6. Continue appropriate GI prophylaxis. 7. Continue to monitor blood counts and transfuse if hemoglobin drops below 7 g/dL. 8. Palliative care following to assist with goals of care discussions. IMPRESSIONS: 1. Acute on chronic combined respiratory failure Unclear if this was truly precipitated by the patient's COPD with concurrent panic attacks versus sequelae of her valvular heart disease. Her presentation was once again similar to that encountered in January 2025. Her chest imaging on this admission is not overtly concerning for underlying pneumonia. The patient does have a known extensive tobacco abuse history with questionable COPD. She has not followed on an outpatient basis by a railway signal technician. At the present time, it is reasonable to continue empiric antimicrobials along with bronchodilators, pending culture results. If sputum culture is negative, we will plan to discontinue antibiotics. Continue tube feeding for nutritional support as tolerated. Given that the patient failed her attempt at extubation this morning, we will resume prior sedation with Precedex and fentanyl. Will need to have a goals of care discussion with the patient's family, particular with regard to the feasibility of tracheostomy and PEG tube placement, if the patient continues to fail attempts at liberation from mechanical ventilation. 2. History of aortic valve stenosis/atrial fibrillation The patient needs to continue her outpatient workup and follow-up for possible TAVR. The patient has been maintained on Eliquis as an outpatient. However, due to her presenting anemia, we will plan to hold her systemic anticoagulation for now. 3. History of restless leg syndrome/anxiety/depression/former tobacco dependency/history of non-small cell lung cancer status post right lobectomy Complicates care, management, recovery and prognosis. Continue supportive measures as noted above. TIME: 38 minutes of critical care time, independent of procedures, was spent addressing the patient's acute on chronic combined respiratory failure, aortic valve stenosis, atrial fibrillation, anemia, review of all data and collaboration with care team. Subjective Subjective The patient was seen and examined at the bedside this morning. Events from the last 24 hours have been reviewed. The patient currently has a low-grade fever but remains otherwise hemodynamically stable on assist-control mode of mechanical ventilation with an FiO2 requirement of 35% and PEEP of 5. The patient is currently documented to be overall net +7.4 L for the hospitalization. White blood cell count is normal. Hemoglobin is stable at 7.4 g/dL. Chemistry profile was unremarkable. While the patient initially did well this morning with her spontaneous awakening and breathing trials, allowing for extubation, the patient subsequently decompensated within 15 minutes of being extubated and had to be reintubated. Intubation Indication: Respiratory failure Consent was obtained from: Performed emergently The patient was placed in the appropriate sniffing position. Preoxygenated sedation via [id number] was provided for a minimum of 3 minutes. The patient had continuous cardiac as well as pulse oximetry monitoring during the procedure. Procedure sedation was provided by the administration of 70 mg of propofol. Video laryngoscopy was then performed using a number 3 Mac blade, which revealed a grade 1 view. A 7.5 mm endotracheal tube was visualized advancing between the cords to the level of 23 cm at the lip. The stylette was then removed and discarded. Tube placement was confirmed by fogging in the tube along with equal and bilateral breath sounds. Colorimetric change was visualized on the CO2 meter. The cuff was then inflated and the tube secured using a commercially available device. A good pulse oximetry waveform was seen on the monitor throughout the procedure. A portable chest x-ray has been ordered to confirm appropriate placement. The patient tolerated the procedure well. Objective Data Objective Data The patient's most recent lab work, culture data and imaging studies have all been personally reviewed. Surface echocardiogram last completed on January 26 demonstrated an ejection fraction of 70%. Blood and sputum cultures are pending. Vital Signs: Vital Signs Temp Pulse Resp BP Pulse Ox O2 Del Method O2 Flow Rate 100.4 F H 88 20 H 84/63 L 95 Mechanical Ventilator 30 02/27/25 07:00 02/27/25 07:00 02/27/25 07:00 02/27/25 07:00 02/27/25 07:00 02/27/25 07:00 02/26/25 11:00 FiO2 35 02/27/25 07:00 Oxygen Flow Rate (L/min) 30 Oxygen Delivery Method Mechanical Ventilator Weight: 167 lb 1.766 oz Body Mass Index (BMI) 28.5 Intake & Output: Intake and Output for Last 24 Hours 02/25/25 02/26/25 02/27/25 22:59 23:59 23:59 Intake Total 4017.99 / 4156.79 3157.47 / 3218.77 607.14 / 607.14 Output Total 765 / 1090 1875 / 1875 550 / 550 Balance 3252.99 / 3066.79 1282.47 / 1343.77 57.14 / 57.14 Lab / Micro Data Attestation: I reviewed the patient's lab results. 02/27/25 04:28 02/27/25 04:28 Labs: Laboratory Results - last 24 hr 02/26/25 08:22: NT pro BNP II 1286 H Micro: Microbiology 02/24/25 22:21 Sputum, Induced/Lukens Gram Stain - Final 02/24/25 22:21 Sputum, Induced/Lukens Respiratory Culture - Final Corynebacterium striatum 02/27/25 02:50 Stool Stool Occult Blood (MODE) - Final Occult Blood Positive 02/24/25 13:30 Blood Culture (Wb) - Anticubital Left Blood Culture - Preliminary No growth in 48 hours. 02/24/25 13:14 Blood Culture (Wb) - Anticubital Right Blood Culture - Preliminary No growth in 48 hours. 02/24/25 21:10 Mucosa - Nasopharyngeal Respiratory Panel (PCR) - Final 02/24/25 22:08 Urine Catheter - Alvarenga Legionella Antigen - Final 02/24/25 22:08 Urine Catheter - Alvarenga Streptococcus pneumoniae Antigen (M - Final 02/24/25 20:56 Nasal Secretion MRSA (PCR) - Final 02/24/25 13:36 Mucosa - Nose SARS-CoV-2, Influenza & RSV (PCR) - Final ABG Data ABG results: ABG 02/26/25 04:42 Specimen Type ART Sample Site R Radial pH 7.45 Bicarbonate Actual 28.8 H Total CO2 30 Base Excess 5 H O2 Saturation 96 O2 % 35.0 ABG pCO2 41.5 ABG pO2 76 Issa Test N/A Respiration Rate 20 O2 Delivery Device Adult Vent Vent Mode AC Tidal Volume 400.0 POC PEEP 5 Radiography Diagnostic Testing: Radiology Impression Chest X-Ray 02/26/25 14:55 IMPRESSION: The tip of the endotracheal tube is at 3.4 cm proximal the kaylan. Improved aeration of both lungs with mild degree of residual linear markings at the lung bases and right upper lobe. Reading Location: [id number] Rhythm Strip Rhythm Strip: Sinus Tach Physical Exam Const Constitutional Narrative: Intubated, sedated and mechanically ventilated. HEENT normocephalic and head/scalp atraumatic Mouth: endotracheal tube in place and OG tube in place Eyes PERRL, conjunctivae normal and no scleral icterus Neck supple General: trachea midline Chest inspection of chest normal Resp normal respiratory effort Auscultation: diminished lung sounds; Negative for rales, rhonchi or wheezes Cardio S1 normal heart sound and S2 normal heart sound Rhythm: abnormal rhythm Heart Sounds: murmur GI soft to palpation and non-tender Extremity General Extremity: edema; Negative for clubbing Skin no rashes or lesions noted Neuro Sensorium / Orientation: sedated on vent Charges/Coding Procedures Hospitalists Procedures: 54238 Critical Care 1st Hr
[2025-02-27 07:35] LABS: Hematocrit 23.5 % (37-47); Hemoglobin 7.4 g/dL (12.0-15.0); Mean Corp Hgb Conc 31.5 g/dL (32-36); Mean Corpuscular Volume 77.3 fL (81-99); Mean Platelet Vol. 11.6 fl (6.2-12.0); Platelet Count 211 K/mm3 (150-450); RBC Distribution Width CV 17.0 % (11.6-14.6); RBC Distribution Width SD 47.8 fl (35.1-43.9); Red Blood Count 3.04 M/mm3 (4.2-5.4); White Blood Count 4.8 K/mm3 (4.4-11.0)
[2025-02-27] MEDS: dexMEDEtomidine 1,000 MCG in 0.9% Normal Saline (250mL Bag) 240 ML 13.3 MCG CONT INF (07:59)
[2025-02-27 08:19] LABS: AST(SGOT) 14 U/L (<=31); Alanine Aminotransfer ALT/SGPT 18 U/L (<=34); Albumin, Serum 3.1 g/dL (3.4-4.8); Alkaline Phosphatase 43 U/L (35-104); Anion Gap 9 (5-15); BUN 14 mg/dL (4-19); BUN/Creat Ratio 21.9 RATIO (10-20); Calcium,Total 8.4 mg/dL (7.6-11.0); Carbon Dioxide 28.3 mmol/L (21.0-32.0); Chloride 105 mmol/L (98-108); Estimated Creatinine Clearance 66.15 ml/min (50-250); Globulin 2.1 g/dL (2.2-4.2); Glucose 101 mg/dL (70-99); Magnesium 2.0 mg/dL (1.5-2.2); Potassium 3.5 mmol/L (3.3-5.1)
--- NOTE | 2025-02-27 08:59 | RAD_ITS ---
PROCEDURE: CHEST 1 VIEW (PORTABLE) 02/27/2025 REASON FOR EXAM: ETT PLACEMENT TECHNIQUE: Frontal view of the chest. COMPARISON: February 26, 2025 FINDINGS: Hardware: The tip of the the kaylan. An orogastric tube seen with the tip Heart: The heart is nonenlarged. Lungs: Stable increased markings at the lung bases. There is evidence of blunting of the right costophrenic angle with a mild degree of right basilar atelectasis. Stable scarring in the right upper lobe. Bones: Degenerative changes are identified within the thoracic spine. RAD/Chest 1 View (Portable) IMPRESSION: The support tubes are in good position. There now is blunting of the right costophrenic angle with right basilar atelec tasis superimposed on scarring as described. Reading Location: [id number]
[2025-02-27 09:48] LABS: Allen Test Positive; Base Excess 6 mmol/L (-2 to +2); FI02 35.0; PEEP 5; PO2 68 mmHG (75-100); RR 20; SITE R Radial; SO2 93 % (94-98)
--- NOTE | 2025-02-27 10:15 | CASEMGMT ---
Addendum entered by Marion Browne 02/27/25 10:44: Social Work Pt's son Nathaniel did call SW back, he was aware pt here and on the vent. KHADIJAH explained to Nathaniel that if any decisions needed made regarding pt's medical care, it would be up to he and his brother Vilma, and not Mike. Nathaniel was aware of this. He also has no number for Vilma and would not know how to reach him, Vilma is not in touch with Nathaniel at all. KHADIJAH will continue to follow. ANAM Markham Original Note: Social Work SW participated in ICU rounds, pt was extubated and reintubated. SW did try to call pt's son Nathaniel, the number we have is not working. KHADIJAH called pt's significant other Mike, to see if he has a number for the son Nathaniel. He states he will look for the number and call KHADIJAH back. He states Nathaniel is aware that pt is in the hospital, spoke to him yesterday at the number he gave to KHADIJAH. HKADIJAH called Nathaniel at the number given, . Message left for son to call SW back. KHADIJAH will continue to follow. ANAM Markham
[2025-02-27] MEDS: Senna/Docusate Sodium 1 Tablet 2 TABLET GT ×2 (11:43→21:12)
[2025-02-27] MEDS: APIXABAN 5 MG TABLET GT (11:43)
[2025-02-27] MEDS: Chlorhexidine 15 ML PO ×2 (11:44→21:13)
[2025-02-27] MEDS: Pantoprazole Sodium 40 MG in 0.9% Normal Saline (100mL MB+) 100 ML 330 MG IV (11:47)
--- NOTE | 2025-02-27 13:32 | PN.PALL_ITS ---
Subjective Subjective 02/27/25: Prior to meeting with the patient at bedside I did talk with Dr. Guzmán about the patient's case. He did state that the patient was extubated this morning in which she did have to be reintubated after 10 minutes for hypoxic respiratory failure. I then met with the patient and her significant other, Mike, at bedside. The patient is very awake and alert and able to communicate her needs and desires, at this time. She is currently on sedation. She was very adamant that she was wanting trach and PEG if needed and that she did not want me to call her son but that she wanted me to talk to her significant other Mike. Mike did confirm that the patient was stating that she did want trach and PEG if needed. He did confirm that these would be her wishes going forward. Ting currently denies pain. The patient did become agitated because Mike was having difficulty understanding some of her words thus we left the room and continued our conversation. He feels that Britt is in her right mind and that she understands what I was saying about trach and PEG. All questions Mike had were answered. Palliative care will continue to follow for goals of care conversations as clinical picture evolves. 02/26/25 to meeting with the patient at bedside I reviewed labs and radiological studies I also reviewed reviewed documentation from this admission and previous admissions. I then met with the patient, Ting at bedside. She is currently intubated and on sedation. I did meet with with the patients significant other,, Mike,in the room. I introduced myself and the concept of palliative care in which he voluntarily accepted the services. I did explain what palliative care is an how it could benefit Denia. He is open to further conversations, particularly the possibility of having her have pallaitive care follow her from an outpatient standpoint. He stated that they are familiar with SNF in the event they recommend rehab at discharge, once medically stable. Pt is currently ferberile, possible a reaction to initiating of presidex for sedation. She is tachycardic and normaltensive. Pt was able to communicate prior to increasing sedation as she did try to extubate herself. Pt does have severe aortic stenosis and needs a TAVR, which she is planning to have once medically stable, per significant other. She is being hampered by extreme anxiety. This is the patients second admission for the same compllaint. Following last admission she was sent to a nursing facility for rehab on 01/31/25. She was discharged to home and was home for one day before being readmitted for dyspnea. All questions were answered. Palliative care will continue to follow for goals of care conversations as clinical picture evolves. Per hospitalist, "DENIA MARC, is a 69 F who presents was discharged from [facility] about a day ago was brought by EMS for worsening shortness of breath on, hypoxia, SpO2 84% home oxygen 3 L, and then 88% on 12 L of nonbreathing mask. ETCO2 80 mmHg. In ED, patient was put temporarily on BiPAP and then intubated because of extreme shortness of breath/altered mental status Patient's boyfriend arrived later and after talking to him, patient did not had chest pain pressure or tightness. Denies fever. Might have cough which is not clear. Patient on IV propofol and fentanyl drip after intubation. Blood pressure was high but came down after starting IV propofol. Lab, imaging and assessment and plan discussed in assessment plan " Objective Data Objective Data Vital Signs: Vital Signs Temp Pulse Resp BP Pulse Ox O2 Del Method O2 Flow Rate 100.6 F H 128 H 25 H 112/73 96 Mechanical Ventilator 5 02/27/25 13:00 02/27/25 13:00 02/27/25 13:00 02/27/25 13:00 02/27/25 13:00 02/27/25 13:00 02/27/25 07:55 FiO2 34 02/27/25 13:00 Oxygen Flow Rate (L/min) 5 Oxygen Delivery Method Mechanical Ventilator Weight: 167 lb 1.766 oz Body Mass Index (BMI) 28.5 Intake & Output: Intake and Output for Last 24 Hours 02/25/25 02/26/25 02/27/25 22:59 23:59 23:59 Intake Total 4017.99 / 4156.79 3157.47 / 3218.77 919.71 / 919.71 Output Total 765 / 1090 1875 / 1875 550 / 550 Balance 3252.99 / 3066.79 1282.47 / 1343.77 369.71 / 369.71 Lab / Micro Data 02/27/25 04:28 02/27/25 04:28 Labs: Laboratory Results - last 24 hr 02/27/25 04:28: WBC 4.8, RBC 3.04 L, Hgb 7.4 L, Hct 23.5 L, MCV 77.3 L, MCH 24.3 L, MCHC 31.5 L, RDW Std Deviation 47.8 H, RDW Coeff of Augustin 17.0 H, Plt Count 211, MPV 11.6, Sodium 142, Potassium 3.5, Chloride 105, Carbon Dioxide 28.3, Anion Gap 9, BUN 14, Creatinine 0.65 L, Estim Creat Clear Calc 66.15, Est GFR (MDRD) Non-Af 95, BUN/Creatinine Ratio 21.9 H, Glucose 101 H, Calcium 8.4, Phosphorus 3.3, Magnesium 2.0, Total Bilirubin 0.24, AST 14, ALT 18, Alkaline Phosphatase 43, Total Protein 5.2 L, Albumin 3.1 L, Globulin 2.1 L, Albumin/Globulin Ratio 1.4 Micro: Microbiology 02/24/25 22:21 Sputum, Induced/Lukens Gram Stain - Final 02/24/25 22:21 Sputum, Induced/Lukens Respiratory Culture - Final Corynebacterium striatum 02/27/25 02:50 Stool Stool Occult Blood (MOED) - Final Occult Blood Positive 02/24/25 13:30 Blood Culture (Wb) - Anticubital Left Blood Culture - Preliminary No growth in 48 hours. 02/24/25 13:14 Blood Culture (Wb) - Anticubital Right Blood Culture - Preliminary No growth in 48 hours. 02/24/25 21:10 Mucosa - Nasopharyngeal Respiratory Panel (PCR) - Final 02/24/25 22:08 Urine Catheter - Alvarenga Legionella Antigen - Final 02/24/25 22:08 Urine Catheter - Alvarenga Streptococcus pneumoniae Antigen (M - Final 02/24/25 20:56 Nasal Secretion MRSA (PCR) - Final 02/24/25 13:36 Mucosa - Nose SARS-CoV-2, Influenza & RSV (PCR) - Final ABG Data ABG results: ABG 02/27/25 09:45 Specimen Type ART Sample Site R Radial pH 7.42 Bicarbonate Actual 30.5 H Total CO2 32 Base Excess 6 H O2 Saturation 93 L O2 % 35.0 ABG pCO2 46.8 H ABG pO2 68 L Issa Test Positive Respiration Rate 20 O2 Delivery Device Adult Vent Vent Mode AC Tidal Volume 400.0 POC PEEP 5 Radiography Diagnostic Testing: Radiology Impression Chest X-Ray 02/26/25 14:55 IMPRESSION: The tip of the endotracheal tube is at 3.4 cm proximal the kaylan. Improved aeration of both lungs with mild degree of residual linear markings at the lung bases and right upper lobe. Reading Location: [id number] Chest X-Ray 02/27/25 08:59 IMPRESSION: The support tubes are in good position. There now is blunting of the right costophrenic angle with right basilar atelectasis superimposed on scarring as described. Reading Location: [id number] Rhythm Strip Rhythm Strip: Sinus Tach Physical Exam Const alert Constitutional Narrative: Patient is currently intubated and on sedation but alert and able to answer yes and no questions appropriately. General Appearance: anxious HEENT normocephalic Eyes PERRL Neck full ROM Lymph Lymphatic: lymphedema Resp Auscultation: crackles, wheezes and diminished lung sounds Cardio Rate: tachycardic Peripheral Pulses: pulses 2+ throughout GI soft to palpation Auscultation: normoactive bowel sounds Bladder / Kidney Exam: catheter in place Extremity normal capillary refill Skin no rashes or lesions noted Neuro moves all extremities Sensorium / Orientation: awake and alert Gait (Neuro): unable to assess gait Motor Exam: general weakness Psych Psych Narrative: Unable to assess Charges/Coding Palliative Care Palliative Care: [id number] Follow up 35-49 min Consulation Summary Current admission Current Code Status: Full Code Associated Diagnosis: acute hypoxic respiratory failure, severe aortic stenosis. Consult Data Date of Consult: 02/26/25 Location of consult: ICU Reason for referral: Goals of care Referral source: Dr. Guzmán Palliative care diagnosis (Summary list): Severe aortic stenosis intubated Palliative care services/treatment (Accepted, as consult): accepted Case discussed with referring provider: Dr. Guzmán Palliative Assessment Advanced Directive - Current Admission Advance Directive: Advance Directive ON ADMISSION - REFERENCE 3 Do you have a Healthcare Yes 02/24/25 20:40 Living Will? Is a Healthcare Living Will No, requested patient bring 02/24/25 20:40 present in the medical record? copy into [facility] Do you have a Healthcare Power No 02/24/25 20:40 of Consulting Networking Engineer? Is a Healthcare Power of No, requested patient bring 02/24/25 13:29 Consulting Networking Engineer present in the copy into [facility] medical rec Do You Want Additional Yes 02/24/25 20:40 Information on Advanced Directives or Symptoms Dyspnea symptoms: Severe Impression & Recommendations Impressions Impressions: Patient would benefit from outpatient palliative care services related to multiple admissions. Recommentation Palliative recommendations: outpatient palliative care Encouter Achieved as a result of this Palliative Care Encounter: [ [id number]] minutes were spent in total for this visit which consisted, primarily of counseling and education dealing with the complex and emotionally intense issues of symptom management and palliative care in the setting of serious and potentially life-threatening illness. Review of documentation, labs and radiological studies. Patient/family had the opportunity to ask questions Plan (1) Acute on chronic respiratory failure with hypoxia and hypercapnia: PLAN: Medical management per primary team (2) Multifocal pneumonia: PLAN: Medical management per primary team (3) Acute exacerbation of chronic obstructive pulmonary disease: PLAN: Medical management per primary team (4) Chronic anemia: PLAN: Medical management per primary team (5) Pneumonia: PLAN: Medical management per primary team (6) Anxiety and depression: PLAN: Medical management per primary team (7) Goals of care, counseling/discussion: PLAN: *Discussion with significant other about goals of care going forward *Once patient is able to will have additional conversations about goals of care. *Patient did endorse that she would want trach and PEG if needed. PLAN: Plan *Recommend palliative care outpatient services ROS ROS Narrative Very limited as patient is currently intubated and on sedation. She is able to answer yes and no questions accurately. She currently denies pain. Review of Systems ROS Unobtainable: due to endotracheal tube
[2025-02-27] MEDS: 0.9% Normal Saline (250mL Bag) 250 ML 15 ML IV (14:07)
[2025-02-27] MEDS: Propofol 10MG/Ml 1,000 MG/100 ML Bottle 4.5 MG CONT INF (14:37)
[2025-02-27] MEDS: dexMEDEtomidine 1,000 MCG in 0.9% Normal Saline (250mL Bag) 240 ML 28.4 MCG CONT INF (17:20)
[2025-02-28] VITALS (45 sets, daily range): BP systolic 69–185; BP diastolic 43–87; PULSE 84–117; RESP 2–21; TEMP 38.1–38.7; O2SAT 95–100; BMI 28.3
[2025-02-28] MEDS: Propofol 10MG/Ml 1,000 MG/100 ML Bottle 9.1 MG CONT INF (00:16)
[2025-02-28] MEDS: Acetaminophen 650 MG/20 ML UDC 1000 MG NG ×2 (00:17→21:01)
[2025-02-28] MEDS: CHLORHEXIDINE GLUC 2% CLOTH 1 EACH TOWELETTE TOPICAL (00:17)
[2025-02-28] MEDS: Vital AF 1.2 Cal Liquid 1,000 ML 30 ML GT (01:19)
[2025-02-28] MEDS: 0.9% Saline Lock 10 ML Syringe IV ×3 (02:15→22:45)
[2025-02-28] MEDS: dexMEDEtomidine 1,000 MCG in 0.9% Normal Saline (250mL Bag) 240 ML 28.4 MCG CONT INF ×3 (02:16→20:16)
[2025-02-28] MEDS: Norepinephrine 8 MG in 0.9% Normal Saline (250mL Bag) 242 ML 9.4 MG CONT INF (03:09)
[2025-02-28] MEDS: fentaNYL drip 100 ML 20 MCG CONT INF ×4 (04:00→22:33)
[2025-02-28 04:01] LABS: Hematocrit 26.6 % (37-47); Hemoglobin 8.0 g/dL (12.0-15.0); Immature Granulocytes Count 0.100 X10^3/uL (0.0-0.0); Mean Corp Hgb Conc 30.1 g/dL (32-36); Mean Corpuscular Volume 76.4 fL (81-99); Mean Platelet Vol. 11.0 fl (6.2-12.0); NRBC Flagged by Analyzer 0 % (0-5); Platelet Count 343 K/mm3 (150-450); RBC Distribution Width CV 17.0 % (11.6-14.6); RBC Distribution Width SD 46.7 fl (35.1-43.9); Red Blood Count 3.48 M/mm3 (4.2-5.4); White Blood Count 9.3 K/mm3 (4.4-11.0)
[2025-02-28 04:40] LABS: Anion Gap 14 (5-15); BUN 14 mg/dL (4-19); BUN/Creat Ratio 20.5 RATIO (10-20); Calcium,Total 8.2 mg/dL (7.6-11.0); Carbon Dioxide 27.1 mmol/L (21.0-32.0); Chloride 102 mmol/L (98-108); Estimated Creatinine Clearance 65.99 ml/min (50-250); Glucose 114 mg/dL (70-99); Potassium 3.5 mmol/L (3.3-5.1)
--- NOTE | 2025-02-28 04:58 | RAD_ITS ---
PROCEDURE: CHEST 1 VIEW (PORTABLE) 02/28/2025 REASON FOR EXAM: RESPIRATORY FAILURE TECHNIQUE: Frontal view of the chest. COMPARISON: February 27, 2025 FINDINGS: Oblique view of the chest. There is a ET tube in position with its tip 3 cm above the level of the kaylan. There is an enteric tube with its tip in the proximal stomach. Heart size is upper normal. Central vascularity appears within normal limits. There is blunting of the costophrenic angle on the right consistent with a trace effusion, decreased. There is no pneumothorax. There is no acute bony abnormality. Aortic calcifications are noted. RAD/Chest 1 View (Portable) IMPRESSION: Tubes and lines in position. Trace right pleural effusion. Reading Location: [facility]
[2025-02-28 05:05] LABS: Allen Test Positive; Base Excess 10 mmol/L (-2 to +2); FI02 35.0; PEEP 5; PO2 55 mmHG (75-100); RR 20; SITE R Radial; SO2 90 % (94-98)
[2025-02-28] MEDS: Piperacil/Tazobactam 3.375 GM in 0.9% Normal Saline (50mL MB+) 50 ML IV ×3 (05:07→21:00)
--- NOTE | 2025-02-28 07:11 | PCM.PN.HOSP ---
Reason for Visit Chief Complaint: Shortness of breath/AMS Subjective Subjective Patient seen, was extubated yesterday and had to be reintubated. Did increase patient Lasix dose. Patient blood pressure did drop necessitating patient being placed on Levophed. Patient remains heavily sedated on the vent Objective Data Objective Data Vital Signs: Vital Signs Temp Pulse Resp BP Pulse Ox O2 Del Method O2 Flow Rate 101.1 F H 93 20 H 86/52 L 95 Mechanical Ventilator 5 02/28/25 07:00 02/28/25 07:00 02/28/25 07:00 02/28/25 07:00 02/28/25 07:00 02/28/25 07:00 02/27/25 07:55 FiO2 35 02/28/25 07:00 Oxygen Flow Rate (L/min) 5 Oxygen Delivery Method Mechanical Ventilator Weight: 75.4 kg Body Mass Index (BMI) 28.3 Intake & Output: Intake and Output for Last 24 Hours 02/26/25 02/27/25 02/28/25 23:59 23:59 23:59 Intake Total 3157.47 / 3218.77 1956.21 / 2081.89 1073.56 / 1073.56 Output Total 1875 / 1875 2950 / 2950 600 / 600 Balance 1282.47 / 1343.77 -993.79 / -868.11 473.56 / 473.56 Lab / Micro Data 02/28/25 03:51 02/28/25 03:51 Labs: Laboratory Results - last 24 hr 02/27/25 04:28: WBC 4.8, RBC 3.04 L, Hgb 7.4 L, Hct 23.5 L, MCV 77.3 L, MCH 24.3 L, MCHC 31.5 L, RDW Std Deviation 47.8 H, RDW Coeff of Augustin 17.0 H, Plt Count 211, MPV 11.6, Sodium 142, Potassium 3.5, Chloride 105, Carbon Dioxide 28.3, Anion Gap 9, BUN 14, Creatinine 0.65 L, Estim Creat Clear Calc 66.15, Est GFR (MDRD) Non-Af 95, BUN/Creatinine Ratio 21.9 H, Glucose 101 H, Calcium 8.4, Phosphorus 3.3, Magnesium 2.0, Total Bilirubin 0.24, AST 14, ALT 18, Alkaline Phosphatase 43, Total Protein 5.2 L, Albumin 3.1 L, Globulin 2.1 L, Albumin/Globulin Ratio 1.4 02/28/25 03:51: WBC 9.3, RBC 3.48 L, Hgb 8.0 L, Hct 26.6 L, MCV 76.4 L, MCH 23.0 L, MCHC 30.1 L, RDW Std Deviation 46.7 H, RDW Coeff of Augustin 17.0 H, Plt Count 343, MPV 11.0, Immature Gran % (Auto) 1.100 H, Neut % (Auto) 67.5, Lymph % (Auto) 19.0, [place] % (Auto) 9.1, Eos % (Auto) 3.1, Baso % (Auto) 0.2, Absolute Neuts (auto) 6.3, Absolute Lymphs (auto) 1.77, Nucleated RBC % 0, Sodium 143, Potassium 3.5, Chloride 102, Carbon Dioxide 27.1, Anion Gap 14, BUN 14, Creatinine 0.67 L, Estim Creat Clear Calc 65.99, Est GFR (MDRD) Non-Af 94, BUN/Creatinine Ratio 20.5 H, Glucose 114 H, Calcium 8.2 Micro: Microbiology 02/24/25 22:21 Sputum, Induced/Lukens Gram Stain - Final 02/24/25 22:21 Sputum, Induced/Lukens Respiratory Culture - Final Corynebacterium striatum 02/27/25 02:50 Stool Stool Occult Blood (MODE) - Final Occult Blood Positive 02/24/25 13:30 Blood Culture (Wb) - Anticubital Left Blood Culture - Preliminary No growth in 48 hours. 02/24/25 13:14 Blood Culture (Wb) - Anticubital Right Blood Culture - Preliminary No growth in 48 hours. 02/24/25 21:10 Mucosa - Nasopharyngeal Respiratory Panel (PCR) - Final 02/24/25 22:08 Urine Catheter - Alvarenga Legionella Antigen - Final 02/24/25 22:08 Urine Catheter - Alvarenga Streptococcus pneumoniae Antigen (M - Final 02/24/25 20:56 Nasal Secretion MRSA (PCR) - Final 02/24/25 13:36 Mucosa - Nose SARS-CoV-2, Influenza & RSV (PCR) - Final ABG Data ABG results: ABG 02/27/25 02/28/25 09:45 05:02 Specimen Type ART ART Sample Site R Radial R Radial pH 7.42 7.48 H Bicarbonate Actual 30.5 H 33.1 H Total CO2 32 34 Base Excess 6 H 10 H O2 Saturation 93 L 90 L O2 % 35.0 35.0 ABG pCO2 46.8 H 44.0 ABG pO2 68 L 55 L Issa Test Positive Positive Respiration Rate 20 20 O2 Delivery Device Adult Vent Adult Vent Vent Mode AC AC Tidal Volume 400.0 400.0 POC PEEP 5 5 Radiography Diagnostic Testing: Radiology Impression Chest X-Ray 02/27/25 08:59 IMPRESSION: The support tubes are in good position. There now is blunting of the right costophrenic angle with right basilar atelectasis superimposed on scarring as described. Reading Location: [id number] Chest X-Ray 02/28/25 04:58 IMPRESSION: Tubes and lines in position. Trace right pleural effusion. [facility] Rhythm Strip Rhythm Strip: Sinus Tach Physical Exam Narrative GENERAL: Sedated on the vent HEENT: Atraumatic; normocephalic EYES; Anicteric, Normal Conjunctiva NECK; supple, normal thyroid, RESPIRATORY: Diminished to auscultation CARDIOVASCULAR: Regular S1 S2, GI: soft, normoactive bowel sounds, : No Renal angle tenderness; EXTREMITIES: Edema of both upper and lower extremity MUSCULOSKELETAL: no muscle wasting NEURO: no lateralizing signs. SKIN: No Rash PSYCH; restless on the vent Assessment & Plan Assessment/Plan (1) Acute exacerbation of chronic obstructive pulmonary disease: (2) Acute on chronic respiratory failure with hypoxia and hypercapnia: PLAN: Plan Patient is a 69-year-old lady with history of COPD admitted with progressive shortness of breath 1. Acute on chronic hypoxic and hypercapnic respiratory failure – Patient intubated admitted to the intensive care unit. Vent management deferred to demi chef – 02/27/2025;Patient attempted self extubation the day prior. Her sedation had to be adjusted with addition of propofol. Repeat chest x-ray following her attempted self extubation demonstrated appropriate placement of the ET tube. 02/28/2025; patient was extubated and had to be reintubated the day prior. Remains heavily sedated on the vent 2. COPD with acute exacerbation – Patient management bronchodilator treatment 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 and antibiotics 3. Atypical pneumonia – Imaging studies demonstrated by lateral interstitial thickening edema versus infection patient placed on broad-spectrum antibiotic therapy cultures sent 4. Acute congestive heart failure with preserved ejection for – Patient has edema as well as elevated proBNP. Echo from 01/26/2025 demonstrated EF of 70%. Patient started on furosemide with daily monitoring of I's and O's weights as electrolytes – 02/27/2025;She also did receive Lasix the day prior however remains in net positive fluid balance of 1 L. – 02/28/2025; adjusted patient diuretic dose she however became hypotensive necessitating patient being started on Levophed 4. Paroxysmal atrial fibrillation – Rate controlled, systemic anticoagulation with apixaban 5. Valvular heart disease with severe aortic stenosis – Patient has apparently been evaluated for TAVR at [facility]. Recommendation is for patient to follow-up following extubation 6. Depression with anxiety – Patient appears restless on the vent patient has been started on Precedex 7. Anemia – Secondary to chronic disorder monitoring H&H and transfuse if patient becomes symptomatic or hemoglobin falls below 7 8. DVT prophylaxis – On apixaban 9. Hypokalemia – Corrected per protocol Time spent in the patient's overall evaluation,decision-making process, review of diagnostic data, adjustment of management, discussion with other providers, nursing nursing and ancillary staff involved in patient's care documentation, 50 Minutes Charges/Coding Visit Charges Inpatient E&M: [id number] [id number]
[2025-02-28] MEDS: Propofol 10MG/Ml 1,000 MG/100 ML Bottle 11.4 MG CONT INF (08:12)
[2025-02-28] MEDS: Potassium Chloride 10mEq/100mL 10 MEQ/100 ML IV.SOLN. 100 MEQ IV BOLUS ×4 (08:13→12:28)
--- NOTE | 2025-02-28 08:17 | PCM.PN.TICU ---
Objective Data Objective Data Vital Signs: Vital Signs Last response Temperature 38.4 C H 02/28/25 07:00 Temperature Source Core 02/28/25 07:00 Pulse Rate 93 02/28/25 07:00 Pulse Strength Weak (1+) 02/27/25 19:52 Respiratory Rate 20 H 02/28/25 07:00 Respiratory Effort Normal, Non-Labored, Mechanically Ventilated 02/28/25 04:00 Respiratory Depth Normal 02/28/25 04:00 Respiratory Pattern Normal 02/28/25 06:51 Blood Pressure 86/52 L 02/28/25 07:00 Blood Pressure Mean 63 02/28/25 07:00 Blood Pressure Source Monitor 02/28/25 07:00 Blood Pressure Position Semi-Fowlers 02/28/25 07:00 Blood Pressure Location Left Arm 02/28/25 07:00 Pulse Ox 95 02/28/25 07:00 Oxygen Delivery Method Mechanical Ventilator 02/28/25 07:00 Oxygen Flow Rate (L/min) 5 02/27/25 07:55 Fraction of Inspired Oxygen (FIO2) 35 02/28/25 07:00 I&O: I&O Last 24 Hours 02/27/25 02/27/25 02/28/25 11:59 23:59 11:59 Intake Total 931.88 / 2081.89 1024.33 / 2081.89 1145.32 / 1145.32 Output Total 550 / 2950 2400 / 2950 600 / 600 Balance 381.88 / -868.11 -1375.67 / -868.11 545.32 / 545.32 I&O: Total Stay 02/24/25 13:06 thru 02/28/25 08:12 Intake Total 01032.16 Output Total 6240 Balance 6896.16 Current Meds Ordered / Administered: Current meds ordered / Administered Generic Name Dose Route Start Last Admin Trade Name Freq PRN Reason Stop Dose Admin Acetaminophen 1,000 mg 02/25/25 08:56 02/28/25 00:17 Acetaminophen 650 Mg/20 Ml Udc NG 1,000 mg Q8H PRN Administration FEVER Albuterol/Ipratropium 3 ml 02/24/25 20:22 02/28/25 06:51 Ipratropium/Albuterol Sulfate 3 Ml Ampul.Neb INHALATION 3 ml Q4H.RT HINA Administration Bisacodyl 10 mg 02/25/25 09:29 Bisacodyl 10 Mg Suppository RC DAILY PRN constipation Carvedilol 3.125 mg 02/25/25 17:00 02/28/25 08:13 Carvedilol 3.125 Mg Tablet GT 3.125 mg BIDCM HINA Administration Protocol Chlorhexidine Gluconate 15 ml 02/25/25 10:00 02/27/25 21:13 Chlorhexidine 15 Ml PO 15 ml BID HINA Administration Chlorhexidine Gluconate 1 each 02/25/25 10:00 02/28/25 00:17 Chlorhexidine Gluc 2% Cloth 1 Each [place] TOPICAL 1 each DAILY HINA Administration Furosemide 40 mg 02/27/25 14:00 02/28/25 05:02 Furosemide 40 Mg/4 Ml Vial IV 40 mg Q8 HINA Administration Protocol Fentanyl 100 mls @ 2.5 mls/hr 02/24/25 15:45 02/28/25 08:12 CONT INF 200 mcg/hr UD HINA 20 mls/hr Protocol Titration 25 MCG/HR Propofol 1,000 mg in 100 mls @ 4.548 mls/hr 02/24/25 15:45 02/28/25 08:12 Diprivan CONT INF 25 mcg/kg/min .Q12H HINA 11.4 mls/hr Protocol Administration 10 MCG/KG/MIN Piperacillin Sod/Tazobactam 50 mls @ 12.5 mls/hr 02/24/25 19:00 02/28/25 05:07 Sod 3.375 gm/ Sodium Chloride IV 03/02/25 23:59 12.5 mls/hr Q8 HINA Administration Sodium Chloride 250 mls @ 15 mls/hr 02/24/25 20:42 02/28/25 06:11 IV Infused .[id number] PRN Infusion Saline Flush Sodium Chloride 250 mls @ 15 mls/hr 02/24/25 20:42 IV .[id number] PRN Additional IVPB Infusion Pantoprazole Sodium 40 mg/ 100 mls @ 300 mls/hr 02/25/25 10:00 02/27/25 12:19 Sodium Chloride IV Infused Q24 HINA Infusion Enteral Nutritional Formula 1,000 mls @ 50 mls/hr 02/25/25 13:15 02/28/25 01:19 Vital Af 1.2 Shiva Liquid GT 30 mls/hr .Q20H HINA Administration Dexmedetomidine HCl 1,000 mcg/ 250 mls @ 9.475 mls/hr 02/26/25 22:00 02/28/25 08:12 Sodium Chloride CONT INF 1.5 mcg/kg/hr .[id number] HINA 28.4 mls/hr Protocol Titration 0.5 MCG/KG/HR Norepinephrine Bitartrate 8 mg 250 mls @ 9.375 mls/hr 02/28/25 02:25 02/28/25 07:00 / Sodium Chloride CONT INF 4 mcg/min .[id number] HINA 7.5 mls/hr Protocol Titration 5 MCG/MIN Potassium Chloride 10 meq in 100 mls @ 100 mls/hr 02/28/25 07:30 02/28/25 08:13 IV BOLUS 02/28/25 11:29 100 mls/hr Q1H HINA Administration Oxycodone HCl 2.5 - 5 mg 02/24/25 20:22 Oxycodone 5 Mg Tablet NG Q4H PRN PRN Pain Score 4-10 Senna/Docusate Sodium 2 tablet 02/25/25 22:00 02/27/25 21:12 Senna/Docusate Sodium 1 Tablet GT 2 tablet BID HINA Administration Sodium Chloride 10 - 40 ml 02/24/25 20:42 02/28/25 02:15 0.9% Saline Lock 10 Ml Syringe IV 30 ml UD PRN Administration SALINE FLUSH Lab / Micro Data 02/28/25 03:51 02/28/25 03:51 Labs: Laboratory Results - last 24 hr 02/27/25 04:28: Sodium 142, Potassium 3.5, Chloride 105, Carbon Dioxide 28.3, Anion Gap 9, BUN 14, Creatinine 0.65 L, Estim Creat Clear Calc 66.15, Est GFR (MDRD) Non-Af 95, BUN/Creatinine Ratio 21.9 H, Glucose 101 H, Calcium 8.4, Phosphorus 3.3, Magnesium 2.0, Total Bilirubin 0.24, AST 14, ALT 18, Alkaline Phosphatase 43, Total Protein 5.2 L, Albumin 3.1 L, Globulin 2.1 L, Albumin/Globulin Ratio 1.4 02/28/25 03:51: WBC 9.3, RBC 3.48 L, Hgb 8.0 L, Hct 26.6 L, MCV 76.4 L, MCH 23.0 L, MCHC 30.1 L, RDW Std Deviation 46.7 H, RDW Coeff of Augustin 17.0 H, Plt Count 343, MPV 11.0, Immature Gran % (Auto) 1.100 H, Neut % (Auto) 67.5, Lymph % (Auto) 19.0, [place] % (Auto) 9.1, Eos % (Auto) 3.1, Baso % (Auto) 0.2, Absolute Neuts (auto) 6.3, Absolute Lymphs (auto) 1.77, Nucleated RBC % 0, Sodium 143, Potassium 3.5, Chloride 102, Carbon Dioxide 27.1, Anion Gap 14, BUN 14, Creatinine 0.67 L, Estim Creat Clear Calc 65.99, Est GFR (MDRD) Non-Af 94, BUN/Creatinine Ratio 20.5 H, Glucose 114 H, Calcium 8.2 Micro: Microbiology 02/24/25 22:21 Sputum, Induced/Lukens Gram Stain - Final 02/24/25 22:21 Sputum, Induced/Lukens Respiratory Culture - Final Corynebacterium striatum 02/27/25 02:50 Stool Stool Occult Blood (MODE) - Final Occult Blood Positive ABG Data ABG results: ABG 02/27/25 02/28/25 09:45 05:02 Specimen Type ART ART Sample Site R Radial R Radial pH 7.42 7.48 H Bicarbonate Actual 30.5 H 33.1 H Total CO2 32 34 Base Excess 6 H 10 H O2 Saturation 93 L 90 L O2 % 35.0 35.0 ABG pCO2 46.8 H 44.0 ABG pO2 68 L 55 L Issa Test Positive Positive Respiration Rate 20 20 O2 Delivery Device Adult Vent Adult Vent Vent Mode AC AC Tidal Volume 400.0 400.0 POC PEEP 5 5 Rhythm Strip Rhythm Strip: Sinus Tach Imaging Radiology Impression Chest X-Ray 02/27/25 08:59 IMPRESSION: The support tubes are in good position. There now is blunting of the right costophrenic angle with right basilar atelectasis superimposed on scarring as described. Reading Location: [id number] Chest X-Ray 02/28/25 04:58 IMPRESSION: Tubes and lines in position. Trace right pleural effusion. Reading Location: [facility] Assessment and Plan . Assessment and plan: Critical Care Time: The entirety of this encounter was done via Telemedicine Subjective Subjective Pt seen and examined. Extubated yesterday but required reintubation almost immediately afterwards. Blood-tinged secretions. Prop @ 25 Fent @ 200 Precedex @ 1.4 NEpi @ 4 20 400 5 35 PE: General: Well developed, +MV HEENT: anicteric Sclera; + ETT, nl nose; supple neck, no masses Cardiovascular: Regular Rate and Rhythm; +loud holosystolic murmur; +generalized edema Respiratory: diminished; no crackles, wheezes, or rhonchi Abdominal: Non-tender; Non distended; hypoBS x 4; No Hepatosplenomegaly Extremities: Warm, well perfused; No clubbing, cyanosis; capillary refill < 2 sec Neurological: sedated, responsive A/P: #Acute resp failure #COPD/asthma exacerbation #?PNA #Anemia #Anxiety #Depression #AoV stenosis #RLS #A-fib #HTN -Cont MV; settings reviewed/adjusted; F/U ABG/CXR; sedation/analgesia; failed extubation almost immediately and required reitubation, of note she self-extubated in the ED and required emergent reintubation at that time as well --> can trial one additional attempt at extubation but this time with NIV bridge followed by HHFNC taper to minimize her immediate distress postintubation; alternatively could just place trach given she is high risk of resp compromise and can be managed much more safely/aggressively in that scenaio; I would favor a trach-forward strategy given above Hx & the fact there is not much left to optimize before another attempted extubation beyond the NIV/HFNC bridge support -Very high anxiety needs --> add PO buspirone and scheduled Xanax down feeding tube -Cont emp IV Abx- Zosyn; F/U Cx --> Corynebacterium from sputum Cx ; CXR no sig infiltrates, remains afebrile and without leukocytosis so will cont just Zosyn for now to complete 5-7d course; if worsening condition add vanc -Cont nebs; IV methylpred -Cont diuresis; excellent UOP, cont strict I/Os; monitor lytes -Outpatient F/U re: TAVR TFs Eliquis *on hold*, PPI Guarded prognosis Critical Care Time: 50 min The entirety of this encounter was done via Telemedicine
[2025-02-28] MEDS: Pantoprazole Sodium 40 MG in 0.9% Normal Saline (100mL MB+) 100 ML 300 MG IV (10:03)
[2025-02-28] MEDS: Chlorhexidine 15 ML PO ×2 (10:03→21:01)
[2025-02-28] MEDS: Senna/Docusate Sodium 1 Tablet 2 TABLET GT ×2 (10:04→21:00)
[2025-02-28] MEDS: Propofol 10MG/Ml 1,000 MG/100 ML Bottle 13.6 MG CONT INF ×2 (15:40→21:59)
[2025-02-28] MEDS: Vital AF 1.2 Cal Liquid 1,000 ML 50 ML GT (21:40)
[2025-03-01] VITALS (63 sets, daily range): BP systolic 80–165; BP diastolic 36–93; PULSE 82–125; RESP 18–20; TEMP 37.7–39.1; O2SAT 93–99; BMI 27.6
[2025-03-01] MEDS: fentaNYL drip 100 ML 20 MCG CONT INF ×5 (03:35→22:20)
[2025-03-01] MEDS: Propofol 10MG/Ml 1,000 MG/100 ML Bottle 13.6 MG CONT INF (03:35)
[2025-03-01] MEDS: dexMEDEtomidine 1,000 MCG in 0.9% Normal Saline (250mL Bag) 240 ML 28.4 MCG CONT INF (05:12)
[2025-03-01] MEDS: Piperacil/Tazobactam 3.375 GM in 0.9% Normal Saline (50mL MB+) 50 ML IV ×3 (05:56→21:49)
[2025-03-01] MEDS: 0.9% Saline Lock 10 ML Syringe IV ×2 (05:57→21:14)
[2025-03-01] MEDS: Acetaminophen 650 MG/20 ML UDC 1000 MG NG ×2 (06:02→16:17)
[2025-03-01 06:22] LABS: Hematocrit 26.3 % (37-47); Hemoglobin 8.0 g/dL (12.0-15.0); Immature Granulocytes Count 0.090 X10^3/uL (0.0-0.0); Mean Corp Hgb Conc 30.4 g/dL (32-36); Mean Corpuscular Volume 77.4 fL (81-99); Mean Platelet Vol. 10.4 fl (6.2-12.0); NRBC Flagged by Analyzer 0 % (0-5); Platelet Count 351 K/mm3 (150-450); RBC Distribution Width CV 17.0 % (11.6-14.6); RBC Distribution Width SD 48.1 fl (35.1-43.9); Red Blood Count 3.40 M/mm3 (4.2-5.4); White Blood Count 11.4 K/mm3 (4.4-11.0)
[2025-03-01 06:45] LABS: Anion Gap 10 (5-15); BUN 14 mg/dL (4-19); BUN/Creat Ratio 22.1 RATIO (10-20); Calcium,Total 8.0 mg/dL (7.6-11.0); Carbon Dioxide 30.6 mmol/L (21.0-32.0); Chloride 100 mmol/L (98-108); Estimated Creatinine Clearance 65.15 ml/min (50-250); Glucose 164 mg/dL (70-99); Potassium 3.0 mmol/L (3.3-5.1)
--- NOTE | 2025-03-01 06:57 | PN.HOSP_ITS ---
Reason for Visit Chief Complaint: Shortness of breath/AMS Subjective Subjective Patient seen, sedation is currently down she opens eyes to name. Patient continues to diurese well and is net negative fluid balance of 1.6 L over the past 24 hours. Hemoglobin down to 8.0, potassium down to 3.0 Objective Data Objective Data Vital Signs: Vital Signs Temp Pulse Resp BP Pulse Ox O2 Del Method O2 Flow Rate 101.7 F H 92 20 H 101/46 L 96 Mechanical Ventilator 35 03/01/25 06:00 03/01/25 06:00 03/01/25 06:00 03/01/25 06:00 03/01/25 06:00 03/01/25 06:00 02/28/25 18:00 FiO2 35 03/01/25 06:00 Oxygen Flow Rate (L/min) 35 Oxygen Delivery Method Mechanical Ventilator Weight: 73.4 kg Body Mass Index (BMI) 27.6 Intake & Output: Intake and Output for Last 24 Hours 02/27/25 02/28/25 03/01/25 23:59 23:59 23:59 Intake Total 1956.21 / 2081.89 3847.76 / 4017.26 872.66 / 872.66 Output Total 2950 / 2950 5075 / 5075 650 / 650 Balance -993.79 / -868.11 -1227.24 / -1057.74 222.66 / 222.66 Lab / Micro Data 03/01/25 06:10 03/01/25 06:10 Labs: Laboratory Results - last 24 hr 03/01/25 06:10: WBC 11.4 H, RBC 3.40 L, Hgb 8.0 L, Hct 26.3 L, MCV 77.4 L, MCH 23.5 L, MCHC 30.4 L, RDW Std Deviation 48.1 H, RDW Coeff of Augustin 17.0 H, Plt Count 351, MPV 10.4, Immature Gran % (Auto) 0.800, Neut % (Auto) 70.1 H, Lymph % (Auto) 16.3 L, [place] % (Auto) 8.3, Eos % (Auto) 4.2, Baso % (Auto) 0.3, Absolute Neuts (auto) 8.0 H, Absolute Lymphs (auto) 1.87, Nucleated RBC % 0, Sodium 140, Potassium 3.0 L, Chloride 100, Carbon Dioxide 30.6, Anion Gap 10, BUN 14, C reatinine 0.62 L, Estim Creat Clear Calc 65.15, Est GFR (MDRD) Non-Af 96, B UN/Creatinine Ratio 22.1 H, Glucose 164 H, Calcium 8.0 Micro: Microbiology 02/27/25 15:51 Sputum, Induced/Lukens Gram Stain - Final 02/24/25 22:21 Sputum, Induced/Lukens Gram Stain - Final 02/24/25 22:21 Sputum, Induced/Lukens Respiratory Culture - Final Corynebacterium striatum 02/27/25 02:50 Stool Stool Occult Blood (MODE) - Final Occult Blood Positive 02/24/25 13:30 Blood Culture (Wb) - Anticubital Left Blood Culture - Preliminary No growth in 48 hours. 02/24/25 13:14 Blood Culture (Wb) - Anticubital Right Blood Culture - Preliminary No growth in 48 hours. 02/24/25 21:10 Mucosa - Nasopharyngeal Respiratory Panel (PCR) - Final 02/24/25 22:08 Urine Catheter - [place]ga Legionella Antigen - Final 02/24/25 22:08 Urine Catheter - [place]ga Streptococcus pneumoniae Antigen (M - Final 02/24/25 20:56 Nasal Secretion MRSA (PCR) - Final 02/24/25 13:36 Mucosa - Nose SARS-CoV-2, Influenza & RSV (PCR) - Final Rhythm Strip Rhythm Strip: Sinus Tach Physical Exam Narrative GENERAL: Awake on the vent on the vent HEENT: Atraumatic; normocephalic EYES; Anicteric, Normal Conjunctiva NECK; supple, normal thyroid, RESPIRATORY: Diminished to auscultation CARDIOVASCULAR: Regular S1 S2, GI: soft, normoactive bowel sounds, : No Renal angle tenderness; EXTREMITIES: Edema of both upper and lower extremity MUSCULOSKELETAL: no muscle wasting NEURO: no lateralizing signs. SKIN: No Rash Assessment & Plan Assessment/Plan (1) Acute exacerbation of chronic obstructive pulmonary disease: (2) Acute on chronic respiratory failure with hypoxia and hypercapnia: PLAN: Plan Patient is a 69-year-old lady with history of COPD admitted with progressive shortness of breath 1. Acute on chronic hypoxic and hypercapnic respiratory failure – Patient intubated admitted to the intensive care unit. Vent management deferred to industrial services worker – 02/27/2025;Patient attempted self extubation the day prior. Her sedation had to be adjusted with addition of propofol. Repeat chest x-ray following her attempted self extubation demonstrated appropriate placement of the ET tube. 02/28/2025; patient was extubated and had to be reintubated the day prior. Remains heavily sedated on the vent – 03/01/2025; patient sedation being weaned down 2. COPD with acute exacerbation – Patient management bronchodilator treatment 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 and antibiotics 3. Atypical pneumonia – Imaging studies demonstrated by lateral interstitial thickening edema versus infection patient placed on broad-spectrum antibiotic therapy cultures sent 4. Acute congestive heart failure with preserved ejection for – Patient has edema as well as elevated proBNP. Echo from 01/26/2025 demonstrated EF of 70%. Patient started on furosemide with daily monitoring of I's and O's weights as electrolytes – 02/27/2025;She also did receive Lasix the day prior however remains in net positive fluid balance of 1 L. – 02/28/2025; adjusted patient diuretic dose she however became hypotensive necessitating patient being started on Levophed – 03/01/2025; patient continues to diurese well currently in negative fluid balance of 1.6 L 4. Paroxysmal atrial fibrillation – Rate controlled, systemic anticoagulation with apixaban 5. Valvular heart disease with severe aortic stenosis – Patient has apparently been evaluated for [facility]R at [facility]. Recommendation is for patient to follow-up following extubation 6. Depression with anxiety – Patient appears restless on the vent patient has been started on Precedex 7. Anemia – Secondary to chronic disorder monitoring H&H and transfuse if patient becomes symptomatic or hemoglobin falls below 7 8. DVT prophylaxis – On apixaban 9. Hypokalemia – Corrected per protocol –Patient potassium remains low at 3.0 additional replacement given Time spent in the patient's overall evaluation,decision-making process, review of diagnostic data, adjustment of management, discussion with other providers, nursing nursing and ancillary staff involved in patient's care documentation, 40 Minutes Charges/Coding Visit Charges Inpatient E&M: 05384 Subs Hosp L2
[2025-03-01] MEDS: Senna/Docusate Sodium 1 Tablet 2 TABLET GT ×2 (08:42→21:14)
[2025-03-01] MEDS: Chlorhexidine 15 ML PO ×2 (08:51→21:15)
[2025-03-01] MEDS: CHLORHEXIDINE GLUC 2% CLOTH 1 EACH TOWELETTE TOPICAL (08:56)
[2025-03-01] MEDS: Potassium Chloride 10mEq/100mL 10 MEQ/100 ML IV.SOLN. 100 MEQ IV BOLUS ×4 (09:21→15:21)
--- NOTE | 2025-03-01 09:52 | PCM.RX.CS ---
Consult Antibiotic Management Pharmacy has been consulted to manage selected antibiotic: Vancomycin Type of Intervention Type of Consult: New start Suspected Infection Suspected Infection: Pneumonia Prior Doses of Antibiotics Prior Doses of Antibiotics Received/Current Regimen: Currently on day 6 of Zosyn Labs Labs: Sodium 140 mmol/L (133-145) 03/01/25 06:10 Potassium 3.0 mmol/L (3.3-5.1) L 03/01/25 06:10 Chloride 100 mmol/L (98-108) 03/01/25 06:10 Carbon Dioxide 30.6 mmol/L (21.0-32.0) 03/01/25 06:10 Anion Gap 10 (5-15) 03/01/25 06:10 BUN 14 mg/dL (4-19) 03/01/25 06:10 Creatinine 0.62 mg/dL (0.70-1.20) L 03/01/25 06:10 Est GFR (MDRD) Non-Af 96 (>60) 03/01/25 06:10 BUN/Creatinine Ratio 22.1 RATIO (10-20) H 03/01/25 06:10 Glucose 164 mg/dL (70-99) H 03/01/25 06:10 Microbiology Microbiology: Microbiology 02/27/25 15:51 Sputum, Induced/Lukens Gram Stain - Final 02/24/25 22:21 Sputum, Induced/Lukens Gram Stain - Final 02/24/25 22:21 Sputum, Induced/Lukens Respiratory Culture - Final Corynebacterium striatum 02/27/25 02:50 Stool Stool Occult Blood (MODE) - Final Occult Blood Positive 02/24/25 13:30 Blood Culture (Wb) - Anticubital Left Blood Culture - Preliminary No growth in 48 hours. 02/24/25 13:14 Blood Culture (Wb) - Anticubital Right Blood Culture - Preliminary No growth in 48 hours. 02/24/25 21:10 Mucosa - Nasopharyngeal Respiratory Panel (PCR) - Final 02/24/25 22:08 Urine Catheter - Alvarenga Legionella Antigen - Final 02/24/25 22:08 Urine Catheter - [place]ga Streptococcus pneumoniae Antigen (M - Final 02/24/25 20:56 Nasal Secretion MRSA (PCR) - Final 02/24/25 13:36 Mucosa - Nose SARS-CoV-2, Influenza & RSV (PCR) - Final Dosing Weight Weight used for dosin.4 kg Estimated Creatinine Clearance Estimated Creatinine Clearance: 65.2 Goal Trough Goal Trough: 15-20 mcg/mL Pharmacy Plan for Drug Dosing Pharmacy Plan for Drug Dosing: Pharmacy Service will continue to monitor and adjust dosing as required. NEW START IV VANCOMYCIN Consulting Physician: Dr. Martin Indication: PNA worsening on Zosyn Goal Trough: 15-20 SrCr: 0.62 CrCl: 65.2 Comments: Patient worsening on Zosyn monotherapy. WBC increasing, temp: 101.7, culture for corynebacterium - G(+) Vancomycin Dose: LD: 1750 mg x1, MD: 1000 mg Q12H with first dose @ 2200 Pending Level: 03/02/25 @ 2130 Date/Time Labs Ordered Labs to be done on [date and time ordered]: 03/02/25 @ 213
[2025-03-01] MEDS: Pantoprazole Sodium 40 MG in 0.9% Normal Saline (100mL MB+) 100 ML 300 MG IV (10:37)
[2025-03-01] MEDS: Vancomycin HCl 1,750 MG in 0.9% Normal Saline (500mL Bag) 500 ML 250 MG IV (11:08)
[2025-03-01] MEDS: Norepinephrine 8 MG in 0.9% Normal Saline (250mL Bag) 242 ML 9.4 MG CONT INF (11:27)
[2025-03-01] MEDS: Propofol 10MG/Ml 1,000 MG/100 ML Bottle 11 MG CONT INF ×2 (12:00→18:45)
--- NOTE | 2025-03-01 12:40 | RAD_ITS ---
PROCEDURE: ABDOMEN SINGLE VIEW (PORTABLE) 03/01/2025 REASON FOR EXAM: HIGH TUBE FEED RESIDUAL TECHNIQUE: Procedure Code: RADABD_P Modality: DX Procedure: ABDOMEN SINGLE VIEW (PORTABLE) COMPARISON: 1 day prior FINDINGS: Bowel gas: Nasogastric tube has its tip at the body of the stomach. Side hole is at the fundus. Unremarkable Calcifications: None Bones: Mild curvature thoracolumbar spine likely positional. Other: No organomegaly. A few surgical clips are shown in the right upper abdomen. Tubal ligation clip overlying the pelvis. Monitoring device over the rectum. RAD/Abdomen Single View (Portable) IMPRESSION: Nasogastric tube is in satisfactory position. However, for slightly improved p ositioning consider advancing 4 cm. Otherwise no acute abnormality Reading Location: [id number]
--- NOTE | 2025-03-01 14:01 | PN.CC_ITS ---
Objective Data Objective Data Vital Signs: Vital Signs Last response 3 Temperature 38.4 C H 03/01/25 13:00 Temperature Source Core 03/01/25 13:00 Pulse Rate 90 03/01/25 13:00 Pulse Strength Weak (1+) 03/01/25 09:52 Respiratory Rate 20 H 03/01/25 13:00 Respiratory Effort Mechanically Ventilated 03/01/25 12:00 Respiratory Depth Normal 03/01/25 04:00 Respiratory Pattern Normal 03/01/25 11:02 Blood Pressure 140/74 H 03/01/25 13:00 Blood Pressure Mean 96 03/01/25 13:00 Blood Pressure Source Monitor 03/01/25 13:00 Blood Pressure Position Supine 03/01/25 13:00 Blood Pressure Location Left Arm 03/01/25 13:00 Pulse Ox 98 03/01/25 13:00 Oxygen Delivery Method Mechanical Ventilator 03/01/25 13:00 Oxygen Flow Rate (L/min) 35 02/28/25 18:00 Fraction of Inspired Oxygen (FIO2) 35 03/01/25 13:00 I&O: I&O Last 24 Hours 3 02/28/25 03/01/25 03/01/25 23:59 11:59 23:59 Intake Total 1937.53 / 4017.26 1576.29 / 1669.29 93.00 / 1669.29 Output Total 2575 / 5075 1075 / 1200 125 / 1200 Balance -637.47 / -1057.74 501.29 / 469.29 -32.00 / 469.29 I&O: Total Stay 3 02/24/25 13:06 thru 03/01/25 13:00 Intake Total 26502.89 Output Total 69686 Balance 5592.89 Current Meds Ordered / Administered: Current meds ordered / Administered 3 Generic Name Dose Route Start Last Admin Trade Name Freq PRN Reason Stop Dose Admin Acetaminophen 1,000 mg 02/25/25 08:56 03/01/25 06:02 Acetaminophen 650 Mg/20 Ml Udc NG 1,000 mg Q8H PRN Administration FEVER Albuterol/Ipratropium 3 ml 02/24/25 20:22 03/01/25 11:01 Ipratropium/Albuterol Sulfate 3 Ml Ampul.Neb INHALATION 3 ml Q4H.RT HINA Administration Alprazolam 0.5 mg 02/28/25 14:00 03/01/25 13:20 Alprazolam 0.5 Mg Tablet PO 0.5 mg TID HINA Administration Bisacodyl 10 mg 02/25/25 09:29 Bisacodyl 10 Mg Suppository RC DAILY PRN constipation Buspirone HCl 10 mg 02/28/25 14:00 03/01/25 13:12 Buspirone 5 Mg Tablet PO 10 mg TID HINA Administration Carvedilol 3.125 mg 02/25/25 17:00 03/01/25 09:24 Carvedilol 3.125 Mg Tablet GT Not Given BIDCM [facility] Protocol Chlorhexidine Gluconate 15 ml 02/25/25 10:00 03/01/25 08:51 Chlorhexidine 15 Ml PO 15 ml BID HINA Administration Chlorhexidine Gluconate 1 each 02/25/25 10:00 03/01/25 08:56 Chlorhexidine Gluc 2% Cloth 1 Each Towelette TOPICAL 1 each DAILY HINA Administration Furosemide 40 mg 02/27/25 14:00 03/01/25 13:12 Furosemide 40 Mg/4 Ml Vial IV 40 mg Q8 HINA Administration Protocol Fentanyl 100 mls @ 2.5 mls/hr 02/24/25 15:45 03/01/25 13:09 CONT INF 200 mcg/hr UD HINA 20 mls/hr Protocol Administration 25 MCG/HR Propofol 1,000 mg in 100 mls @ 4.404 mls/hr 02/24/25 15:45 03/01/25 13:00 Diprivan CONT INF 25 mcg/kg/min .Q12H HINA 11 mls/hr Protocol Titration 10 MCG/KG/MIN Piperacillin Sod/Tazobactam 50 mls @ 12.5 mls/hr 02/24/25 19:00 03/01/25 13:20 Sod 3.375 gm/ Sodium Chloride IV 03/02/25 23:59 12.5 mls/hr Q8 HINA Administration Sodium Chloride 250 mls @ 15 mls/hr 02/24/25 20:42 02/28/25 06:11 IV Infused .[id number] PRN Infusion Saline Flush Sodium Chloride 250 mls @ 15 mls/hr 02/24/25 20:42 IV .[id number] PRN Additional IVPB Infusion Pantoprazole Sodium 40 mg/ 100 mls @ 300 mls/hr 02/25/25 10:00 03/01/25 11:07 Sodium Chloride IV Infused Q24 HINA Infusion Enteral Nutritional Formula 1,000 mls @ 50 mls/hr 02/25/25 13:15 02/28/25 21:40 Vital Af 1.2 Shiva Liquid GT 50 mls/hr .Q20H HINA Administration Dexmedetomidine HCl 1,000 mcg/ 250 mls @ 9.175 mls/hr 02/26/25 22:00 03/01/25 12:00 Sodium Chloride CONT INF 1.5 mcg/kg/hr .[id number] HINA 27.5 mls/hr Protocol Titration 0.5 MCG/KG/HR Norepinephrine Bitartrate 8 mg 250 mls @ 9.375 mls/hr 02/28/25 02:25 03/01/25 13:00 / Sodium Chloride CONT INF 5 mcg/min .[id number] HINA 9.4 mls/hr Protocol Titration 5 MCG/MIN Vancomycin IV-PHARMACY TO DOSE 500 mls @ 250 mls/hr 03/01/25 09:28 1 each/ Sodium Chloride IV X1 PRN Rx to Dose Protocol Vancomycin HCl 1,000 mg/ 270 mls @ 250 mls/hr 03/01/25 22:00 Sodium Chloride IV Q12H HINA Oxycodone HCl 2.5 - 5 mg 02/24/25 20:22 Oxycodone 5 Mg Tablet NG Q4H PRN PRN Pain Score 4-10 Senna/Docusate Sodium 2 tablet 02/25/25 22:00 03/01/25 08:42 Senna/Docusate Sodium 1 Tablet GT 2 tablet BID HINA Administration Sodium Chloride 10 - 40 ml 02/24/25 20:42 03/01/25 05:57 0.9% Saline Lock 10 Ml Syringe IV 10 ml UD PRN Administration SALINE FLUSH Vancomycin Protocol 1 lab 03/02/25 20:30 Vancomycin Trough/Random Due 03/02/25 22:30 DAILY HINA Lab / Micro Data 03/01/25 06:10 03/01/25 06:10 Labs: Laboratory Results - last 24 hr 03/01/25 06:10: WBC 11.4 H, RBC 3.40 L, Hgb 8.0 L, Hct 26.3 L, MCV 77.4 L, MCH 23.5 L, MCHC 30.4 L, RDW Std Deviation 48.1 H, RDW Coeff of Augustin 17.0 H, Plt Count 351, MPV 10.4, Immature Gran % (Auto) 0.800, Neut % (Auto) 70.1 H, Lymph % (Auto) 16.3 L, [place] % (Auto) 8.3, Eos % (Auto) 4.2, Baso % (Auto) 0.3, Absolute Neuts (auto) 8.0 H, Absolute Lymphs (auto) 1.87, Nucleated RBC % 0, Sodium 140, Potassium 3.0 L, Chloride 100, Carbon Dioxide 30.6, Anion Gap 10, BUN 14, C reatinine 0.62 L, Estim Creat Clear Calc 65.15, Est GFR (MDRD) Non-Af 96, B UN/Creatinine Ratio 22.1 H, Glucose 164 H, Calcium 8.0 Micro: Microbiology 02/24/25 13:30 Blood Culture (Wb) - Anticubital Left Blood Culture - Final No growth in 5 days. 02/24/25 13:14 Blood Culture (Wb) - Anticubital Right Blood Culture - Final No growth in 5 days. 02/27/25 15:51 Sputum, Induced/Lukens Gram Stain - Final 02/27/25 15:51 Sputum, Induced/Lukens Respiratory Culture - Preliminary Presumptive C albicans Rhythm Strip Rhythm Strip: Sinus Tach Imaging Radiology Impression KUB X-Ray 03/01/25 12:40 IMPRESSION: Nasogastric tube is in satisfactory position. However, for slightly improved positioning consider advancing 4 cm. Otherwise no acute abnormality Reading Location: [id number] Assessment and Plan . Assessment and plan: Exam: General: intubated/sedated HEENT: ENT in place Cardiovascular: rrr nl s1 s2 no mrg Respiratory: CTA, in sync with vent Abdominal: Non-tender; Non distended; hypoBS x 4; No Hepatosplenomegaly Extremities: + edema Neurological: sedated A/P: #Acute resp failure #COPD/asthma exacerbation #?PNA #Anemia #Anxiety #Depression #AoV stenosis #RLS #A-fib #HTN -Cont MV; settings reviewed/adjusted; F/U ABG/CXR; sedation/analgesia; failed extubation almost immediately and required reintubation, of note she self- extubated in the ED and required emergent reintubation again; rest today, assess for SATs/SBTs thru the weekend and make a decision on tracheostomy on Wednesday -Very high anxiety needs --> PO buspirone and scheduled Xanax down feeding tube -Cont emp IV Abx- Zosyn; F/U Cx --> Corynebacterium from sputum Cx ; CXR no sig infiltrates, follow fever curve (38.4 on 03/01) and without leukocytosis so will cont just Zosyn for now to complete 5-7d course; if worsening condition add vanc -Cont nebs; IV methylpred -Cont diuresis; excellent UOP, cont strict I/Os; monitor lytes -Outpatient F/U re: TAVR -KUB reviewed; there is no sign of obstruction/ileus; resume TFs in a few hours and see if we can advance back to goal, meanwhile add miralax to current regimen TFs Eliquis *on hold*, PPI Guarded prognosis Critical Care Time: 52 minutes The entirety of this encounter was done via Telemedicine Physical Exam Const Constitutional Narrative: see below Subjective Subjective Remains sedated with fentanyl/propofol/precedex On stable dose of levophed Tfs held this AM after high residuals KUB performed
[2025-03-01] MEDS: dexMEDEtomidine 1,000 MCG in 0.9% Normal Saline (250mL Bag) 240 ML 27.5 MCG CONT INF ×2 (14:11→23:48)
[2025-03-01] MEDS: Polyethylene Glycol 3350 17 GM PACKET PO (15:46)
[2025-03-01] MEDS: Vancomycin HCl 1,000 MG in 0.9% Normal Saline (250mL Bag) 250 ML 250 MG IV (21:49)
[2025-03-02] VITALS (49 sets, daily range): BP systolic 73–135; BP diastolic 38–68; PULSE 82–102; RESP 16–23; TEMP 37.7–38.7; O2SAT 95–100; BMI 27.6
[2025-03-02] MEDS: Propofol 10MG/Ml 1,000 MG/100 ML Bottle 13.2 MG CONT INF (02:31)
[2025-03-02] MEDS: fentaNYL drip 100 ML 17.5 MCG CONT INF ×4 (03:00→21:16)
--- NOTE | 2025-03-02 04:10 | RAD_ITS ---
PROCEDURE: CHEST 1 VIEW (PORTABLE) 03/02/2025 REASON FOR EXAM: RESPIRATORY FAILURE TECHNIQUE: Frontal view of the chest. COMPARISON: Chest x-ray 02/28/2025. FINDINGS: Hardware: The NG tube descends into the stomach. A right-sided PICC line terminates at the cavoatrial junction. The ET tube terminates 4 cm above the kaylan. Heart: No cardiomegaly. Tortuosity and atherosclerotic calcifications of the aorta. Lungs: Clear. No pleural effusion or pneumothorax. Bones: No acute bony abnormalities. RAD/Chest 1 View (Portable) IMPRESSION: Tubes are as detailed. No acute cardiopulmonary abnormalities. Reading Location: [id number]
[2025-03-02 04:45] LABS: Base Excess 9 mmol/L (-2 to +2); FI02 35.0; PEEP 5; PO2 69 mmHG (75-100); RR 20; SITE R Radial; SO2 95 % (94-98)
[2025-03-02] MEDS: Piperacil/Tazobactam 3.375 GM in 0.9% Normal Saline (50mL MB+) 50 ML IV ×3 (06:04→21:15)
[2025-03-02] MEDS: 0.9% Saline Lock 10 ML Syringe IV ×2 (06:05→21:16)
[2025-03-02 06:22] LABS: Hematocrit 24.6 % (37-47); Hemoglobin 7.6 g/dL (12.0-15.0); Immature Granulocytes Count 0.100 X10^3/uL (0.0-0.0); Mean Corp Hgb Conc 30.9 g/dL (32-36); Mean Corpuscular Volume 76.6 fL (81-99); Mean Platelet Vol. 10.1 fl (6.2-12.0); NRBC Flagged by Analyzer 0 % (0-5); Platelet Count 344 K/mm3 (150-450); RBC Distribution Width CV 16.6 % (11.6-14.6); RBC Distribution Width SD 46.5 fl (35.1-43.9); Red Blood Count 3.21 M/mm3 (4.2-5.4); White Blood Count 9.5 K/mm3 (4.4-11.0)
[2025-03-02 06:52] LABS: Anion Gap 10 (5-15); BUN 10 mg/dL (4-19); BUN/Creat Ratio 21.5 RATIO (10-20); Calcium,Total 7.8 mg/dL (7.6-11.0); Carbon Dioxide 29.1 mmol/L (21.0-32.0); Chloride 101 mmol/L (98-108); Estimated Creatinine Clearance 65.15 ml/min (50-250); Glucose 131 mg/dL (70-99); Potassium 2.7 mmol/L (3.3-5.1)
--- NOTE | 2025-03-02 07:46 | PCM.PN.BLA ---
Progress Note Pt remains intubated and sedated. Palliative will continue to follow remotely. Pt indicated that she would want a trach and peg, S.O. and son were in agreement. Will follow up with family on Wednesday after breathing trials.
[2025-03-02] MEDS: Chlorhexidine 15 ML PO ×2 (08:22→21:05)
[2025-03-02] MEDS: Potassium Chloride 10mEq/100mL 10 MEQ/100 ML IV.SOLN. 100 MEQ IV BOLUS ×4 (08:22→12:49)
[2025-03-02] MEDS: Propofol 10MG/Ml 1,000 MG/100 ML Bottle 8.8 MG CONT INF (08:28)
[2025-03-02 08:52] LABS: Magnesium 1.7 mg/dL (1.5-2.2)
--- NOTE | 2025-03-02 09:19 | CASEMGMT ---
Per ICU rounds, pt will undergo SBT throughout the weekend and if the pt is unable to pass, the pt is agreeable for a trach and peg. Per rounds, this will be as early as Wednesday. Tert list entered in the case that the implementation technician opts to transfer the pt. CM to follow for LTACH needs at DC if warranted.
[2025-03-02] MEDS: dexMEDEtomidine 1,000 MCG in 0.9% Normal Saline (250mL Bag) 240 ML 27.5 MCG CONT INF ×2 (09:20→18:52)
[2025-03-02] MEDS: Norepinephrine 8 MG in 0.9% Normal Saline (250mL Bag) 242 ML 11.3 MG CONT INF (09:22)
[2025-03-02] MEDS: Potassium Chloride Oral Soln 20 MEQ/15 ML UDC 40 MEQ NG (09:23)
[2025-03-02] MEDS: Polyethylene Glycol 3350 17 GM PACKET PO (09:55)
[2025-03-02] MEDS: Senna/Docusate Sodium 1 Tablet 2 TABLET GT ×2 (09:56→21:16)
--- NOTE | 2025-03-02 10:07 | CASEMGMT ---
Tertiary Insurance review for hospitals In-network with [facility] insurance if transfer is recommended is as follows: [facility], [facility], [place], [facility], [facility], [facility], and . Jocelynn Feliciano, Discharge Planning Asst.
[2025-03-02] MEDS: Pantoprazole Sodium 40 MG in 0.9% Normal Saline (100mL MB+) 100 ML 300 MG IV (10:44)
[2025-03-02] MEDS: 0.9% Normal Saline (250mL Bag) 250 ML 15 ML IV (11:32)
[2025-03-02] MEDS: Vancomycin HCl 1,000 MG in 0.9% Normal Saline (250mL Bag) 250 ML 250 MG IV ×2 (11:36→22:25)
--- NOTE | 2025-03-02 12:48 | PCM.PN.TICU ---
Objective Data Objective Data Vital Signs: Vital Signs Last response Temperature 38.3 C H 03/02/25 12:00 Temperature Source Core 03/02/25 12:00 Pulse Rate 89 03/02/25 12:00 Pulse Strength Weak (1+) 03/02/25 10:00 Respiratory Rate 23 H 03/02/25 12:00 Respiratory Effort Mechanically Ventilated 03/02/25 11:59 Respiratory Depth Normal 03/02/25 11:59 Respiratory Pattern Normal 03/02/25 11:59 Blood Pressure 103/51 L 03/02/25 12:00 Blood Pressure Mean 68 03/02/25 12:00 Blood Pressure Source Monitor 03/02/25 12:00 Blood Pressure Position Semi-Fowlers 03/02/25 12:00 Blood Pressure Location Left Arm 03/02/25 12:00 Pulse Ox 98 03/02/25 12:00 Oxygen Delivery Method Mechanical Ventilator 03/02/25 12:00 Oxygen Flow Rate (L/min) 35 02/28/25 18:00 Fraction of Inspired Oxygen (FIO2) 35 03/02/25 12:00 I&O: I&O Last 24 Hours 03/01/25 03/02/25 03/02/25 23:59 11:59 23:59 Intake Total 2344.65 / 4612.61 1443.35 / 1768.23 324.88 / 1768.23 Output Total 1375 / 4125 2870 / 2870 Balance 969.65 / 487.61 -1426.65 / -1101.77 324.88 / -1101.77 I&O: Total Stay 02/24/25 13:06 thru 03/02/25 12:47 Intake Total 07098.44 Output Total 76777 Balance 6034.44 Current Meds Ordered / Administered: Current meds ordered / Administered Generic Name Dose Route Start Last Admin Trade Name Freq PRN Reason Stop Dose Admin Acetaminophen 1,000 mg 02/25/25 08:56 03/01/25 16:17 Acetaminophen 650 Mg/20 Ml Udc NG 1,000 mg Q8H PRN Administration FEVER Albuterol/Ipratropium 3 ml 02/24/25 20:22 03/02/25 10:49 Ipratropium/Albuterol Sulfate 3 Ml Ampul.Neb INHALATION 3 ml Q4H.RT HINA Administration Alprazolam 0.5 mg 02/28/25 14:00 03/02/25 06:04 Alprazolam 0.5 Mg Tablet PO 0.5 mg TID HINA Administration Bisacodyl 10 mg 02/25/25 09:29 Bisacodyl 10 Mg Suppository RC DAILY PRN constipation Buspirone HCl 10 mg 02/28/25 14:00 03/02/25 06:04 Buspirone 5 Mg Tablet PO 10 mg TID HINA Administration Carvedilol 3.125 mg 02/25/25 17:00 03/02/25 08:19 Carvedil[facility] 3.125 Mg Tablet [facility] Chlorhexidine Gluconate 15 ml 02/25/25 10:00 03/02/25 08:22 Chlorhexidine 15 Ml PO 15 ml BID HINA Administration Chlorhexidine Gluconate 1 each 02/25/25 10:00 03/02/25 09:34 Chlorhexidine Gluc 2% Cloth 1 Each Towelette TOPICAL Not Given DAILY HINA Furosemide 40 mg 02/27/25 14:00 03/02/25 06:04 Furosemide 40 Mg/4 Ml Vial IV 40 mg Q8 HINA Administration Protocol Fentanyl 100 mls @ 2.5 mls/hr 02/24/25 15:45 03/02/25 12:00 CONT INF 175 mcg/hr UD HINA 17.5 mls/hr Protocol Titration 25 MCG/HR Propofol 1,000 mg in 100 mls @ 4.404 mls/hr 02/24/25 15:45 03/02/25 12:00 Diprivan CONT INF 15 mcg/kg/min .Q12H HINA 6.6 mls/hr Protocol Titration 10 MCG/KG/MIN Piperacillin Sod/Tazobactam 50 mls @ 12.5 mls/hr 02/24/25 19:00 03/02/25 10:11 Sod 3.375 gm/ Sodium Chloride IV 03/02/25 23:59 Infused Q8 HINA Infusion Sodium Chloride 250 mls @ 15 mls/hr 02/24/25 20:42 03/02/25 12:47 IV 15 mls/hr .[id number] PRN Infusion Saline Flush Sodium Chloride 250 mls @ 15 mls/hr 02/24/25 20:42 IV .[id number] PRN Additional IVPB Infusion Pantoprazole Sodium 40 mg/ 100 mls @ 300 mls/hr 02/25/25 10:00 03/02/25 11:07 Sodium Chloride IV Infused Q24 HINA Infusion Enteral Nutritional Formula 1,000 mls @ 50 mls/hr 02/25/25 13:15 03/02/25 11:29 Vital Af 1.2 Shiva Liquid GT Not Given .Q20H HINA Dexmedetomidine HCl 1,000 mcg/ 250 mls @ 9.175 mls/hr 02/26/25 22:00 03/02/25 12:00 Sodium Chloride CONT INF 1.5 mcg/kg/hr .[id number] HINA 27.5 mls/hr Protocol Titration 0.5 MCG/KG/HR Norepinephrine Bitartrate 8 mg 250 mls @ 9.375 mls/hr 02/28/25 02:25 03/02/25 12:00 / Sodium Chloride CONT INF 7 mcg/min .[id number] HINA 13.1 mls/hr Protocol Titration 5 MCG/MIN Vancomycin IV-PHARMACY TO DOSE 500 mls @ 250 mls/hr 03/01/25 09:28 1 each/ Sodium Chloride IV X1 PRN Rx to Dose Protocol Vancomycin HCl 1,000 mg/ 270 mls @ 250 mls/hr 03/01/25 22:00 03/02/25 12:46 Sodium Chloride IV Infused Q12H HINA Infusion Metoclopramide HCl 10 mg 03/02/25 12:00 03/02/25 11:29 Metoclopramide 10 Mg/2 Ml Vial IV 10 mg Q6 HINA Administration Oxycodone HCl 2.5 - 5 mg 02/24/25 20:22 Oxycodone 5 Mg Tablet NG Q4H PRN PRN Pain Score 4-10 Polyethylene Glycol 17 gm 03/01/25 14:15 03/02/25 09:55 Polyethylene Glycol 3350 17 Gm Packet PO 17 gm DAILY HINA Administration Senna/Docusate Sodium 2 tablet 02/25/25 22:00 03/02/25 09:56 Senna/Docusate Sodium 1 Tablet GT 2 tablet BID HINA Administration Sodium Chloride 10 - 40 ml 02/24/25 20:42 03/02/25 06:05 0.9% Saline Lock 10 Ml Syringe IV 10 ml UD PRN Administration SALINE FLUSH Vancomycin Protocol 1 lab 03/02/25 20:30 Vancomycin Trough/Random Due MC 03/02/25 22:30 DAILY [facility] Lab / Micro Data 03/02/25 06:10 03/02/25 06:10 Labs: Laboratory Results - last 24 hr 03/02/25 06:10: WBC 9.5, RBC 3.21 L, Hgb 7.6 L, Hct 24.6 L, MCV 76.6 L, MCH 23.7 L, MCHC 30.9 L, RDW Std Deviation 46.5 H, RDW Coeff of Augustin 16.6 H, Plt Count 344, MPV 10.1, Immature Gran % (Auto) 1.100 H, Neut % (Auto) 64.6, Lymph % (Auto) 19.1, [place] % (Auto) 8.6, Eos % (Auto) 6.5 H, Baso % (Auto) 0.1, Absolute Neuts (auto) 6.1, Absolute Lymphs (auto) 1.81, Nucleated RBC % 0, Sodium 140, Potassium 2.7 L*, Chloride 101, Carbon Dioxide 29.1, Anion Gap 10, BUN 10, Creatinine 0.46 L, Estim Creat Clear Calc 65.15, Est GFR (MDRD) Non-Af 103, BUN/Creatinine Ratio 21.5 H, Glucose 131 H, Calcium 7.8, Magnesium 1.7 Micro: Microbiology 02/27/25 15:51 Sputum, Induced/Lukens Gram Stain - Final 02/27/25 15:51 Sputum, Induced/Lukens Respiratory Culture - Final Presumptive C albicans 02/24/25 13:30 Blood Culture (Wb) - Anticubital Left Blood Culture - Final No growth in 5 days. 02/24/25 13:14 Blood Culture (Wb) - Anticubital Right Blood Culture - Final No growth in 5 days. ABG Data ABG results: ABG 03/02/25 04:39 Specimen Type ART Sample Site R Radial pH 7.52 H Bicarbonate Actual 31.8 H Total CO2 33 Base Excess 9 H O2 Saturation 95 O2 % 35.0 ABG pCO2 39.1 ABG pO2 69 L Issa Test N/A Respiration Rate 20 O2 Delivery Device Adult Vent Vent Mode AC Tidal Volume 400.0 POC PEEP 5 Rhythm Strip Rhythm Strip: Sinus Tach Imaging Radiology Impression KUB X-Ray 03/01/25 12:40 IMPRESSION: Nasogastric tube is in satisfactory position. However, for slightly improved positioning consider advancing 4 cm. Otherwise no acute abnormality Reading Location: [facility] Chest X-Ray 03/02/25 04:10 IMPRESSION: Tubes are as detailed. No acute cardiopulmonary abnormalities. Reading Location: [facility] Assessment and Plan . Assessment and plan: Exam: General: intubated/sedated HEENT: ENT in place Cardiovascular: rrr nl s1 s2 no mrg Respiratory: CTA, in sync with vent Abdominal: Non-tender; Non distended; hypoBS x 4; No Hepatosplenomegaly Extremities: + edema Neurological: sedated A/P: #Acute resp failure #COPD/asthma exacerbation #?PNA #Anemia #Anxiety #Depression #AoV stenosis #RLS #A-fib #HTN -Cont MV; settings reviewed/adjusted; F/U ABG/CXR; sedation/analgesia; failed extubation almost immediately and required reintubation, of note she self-extubated in the ED and required emergent reintubation again -Anxiety/agitation have limited weaning;trial SBTs on current level of sedation; if she has apnea or low VT dial sedation down carefully -If she does well with SBTs we can couple with SAT -Very high anxiety needs --> PO buspirone and scheduled Xanax down feeding tube -Cont emp IV Abx- Zosyn; F/U Cx --> Corynebacterium from sputum Cx ; CXR no sig infiltrates, follow fever curve (38.4 on 03/01) and without leukocytosis so will cont just Zosyn for now to complete 5-7d course -Cont nebs; IV methylpred -Cont diuresis; excellent UOP, cont strict I/Os; monitor lytes -Outpatient F/U re: TAVR -KUB reviewed; there is no sign of obstruction/ileus; start reglan and resume TFs after residuals improve; cont miralax TFs Eliquis *on hold*, PPI Guarded prognosis Critical Care Time: 52 minutes The entirety of this encounter was done via Telemedicine Physical Exam Const Constitutional Narrative: see below Subjective Subjective Remains sedated with fentanyl/propofol/precedex On stable dose of levophed Remains with high residuals after TFs held > 10 hrs
--- NOTE | 2025-03-02 15:22 | PN_ITS ---
Subjective Subjective Patient seen and examined. She remains intubated and sedated. Unable to do review of systems. She remains on the ventilator and has a fever of 99.9 Fahrenheit today. Objective Data Objective Data Vital Signs: Vital Signs Temp Pulse Resp BP Pulse Ox O2 Del Method O2 Flow Rate 99.9 F H 89 23 H 104/56 L 97 Mechanical Ventilator 35 03/02/25 15:00 03/02/25 15:00 03/02/25 15:00 03/02/25 15:00 03/02/25 15:00 03/02/25 15:00 02/28/25 18:00 FiO2 35 03/02/25 15:00 Oxygen Flow Rate (L/min) 35 Oxygen Delivery Method Mechanical Ventilator Weight: 161 lb 13.109 oz Body Mass Index (BMI) 27.6 Intake & Output: Intake and Output for Last 24 Hours 02/28/25 03/01/25 03/02/25 23:59 23:59 23:59 Intake Total 3847.76 / 4017.26 4462.61 / 4612.61 2220.70 / 2220.70 Output Total 5075 / 5075 2450 / 4125 2870 / 2870 Balance -1227.24 / -1057.74 2012.61 / 487.61 -649.30 / -649.30 Lab / Micro Data 03/02/25 06:10 03/02/25 06:10 Labs: Laboratory Results - last 24 hr 03/02/25 06:10: WBC 9.5, RBC 3.21 L, Hgb 7.6 L, Hct 24.6 L, MCV 76.6 L, MCH 23.7 L, MCHC 30.9 L, RDW Std Deviation 46.5 H, RDW Coeff of Augustin 16.6 H, Plt Count 344, MPV 10.1, Immature Gran % (Auto) 1.100 H, Neut % (Auto) 64.6, Lymph % (Auto) 19.1, [place] % (Auto) 8.6, Eos % (Auto) 6.5 H, Baso % (Auto) 0.1, Absolute Neuts (auto) 6.1, Absolute Lymphs (auto) 1.81, Nucleated RBC % 0, Sodium 140, P otassium 2.7 L*, Chloride 101, Carbon Dioxide 29.1, Anion Gap 10, BUN 10, C reatinine 0.46 L, Estim Creat Clear Calc 65.15, Est GFR (MDRD) Non-Af 103, B UN/Creatinine Ratio 21.5 H, Glucose 131 H, Calcium 7.8, Magnesium 1.7 Micro: Microbiology 02/27/25 15:51 Sputum, Induced/Lukens Gram Stain - Final 02/27/25 15:51 Sputum, Induced/Lukens Respiratory Culture - Final Presumptive C albicans 02/24/25 13:30 Blood Culture (Wb) - Anticubital Left Blood Culture - Final No growth in 5 days. 02/24/25 13:14 Blood Culture (Wb) - Anticubital Right Blood Culture - Final No growth in 5 days. 02/24/25 22:21 Sputum, Induced/Lukens Gram Stain - Final 02/24/25 22:21 Sputum, Induced/Lukens Respiratory Culture - Final Corynebacterium striatum 02/27/25 02:50 Stool Stool Occult Blood (MODE) - Final Occult Blood Positive 02/24/25 21:10 Mucosa - Nasopharyngeal Respiratory Panel (PCR) - Final 02/24/25 22:08 Urine Catheter - [place] Legionella Antigen - Final 02/24/25 22:08 Urine Catheter - [place] Streptococcus pneumoniae Antigen (M - Final 02/24/25 20:56 Nasal Secretion MRSA (PCR) - Final 02/24/25 13:36 Mucosa - Nose SARS-CoV-2, Influenza & RSV (PCR) - Final ABG Data ABG results: ABG 03/02/25 04:39 Specimen Type ART Sample Site R Radial pH 7.52 H Bicarbonate Actual 31.8 H Total CO2 33 Base Excess 9 H O2 Saturation 95 O2 % 35.0 ABG pCO2 39.1 ABG pO2 69 L Issa Test N/A Respiration Rate 20 O2 Delivery Device Adult Vent Vent Mode AC Tidal Volume 400.0 POC PEEP 5 Radiography Diagnostic Testing: Radiology Impression Chest X-Ray 03/02/25 04:10 IMPRESSION: Tubes are as detailed. No acute cardiopulmonary abnormalities. Reading Location: [facility] Rhythm Strip Rhythm Strip: Sinus Tach Physical Exam Const Constitutional Narrative: Intubated, sedated, RASS score HEENT normocephalic, head/scalp atraumatic, moist oral mucous membranes and oropharynx normal Eyes EOMs intact bilaterally Neck supple and no JVD Lymph Lymphatic: no lymphadenopathy noted Resp Resp Narrative: Patient intubated, sedated, RASS score is 0 Cardio regular rate, regular rhythm, S1 normal heart sound, S2 normal heart sound and no murmurs GI normal to inspection, nondistended, normoactive bowel sounds, soft to palpation and non-tender Extremity normal capillary refill and no clubbing, cyanosis or edema General Extremity: no tenderness to palpation of joints or extremities Skin General Skin Exam: no breakdown Neuro Neuro Narrative: intubated, sedated Motor Exam: general weakness Assessment & Plan Assessment/Plan (1) Multifocal pneumonia: (2) Acute on chronic respiratory failure with hypoxia and hypercapnia: PLAN: Plan #Acute on chronic hypoxic and hypercapnic respiratory failure due to COPD exacerbation, acute exacerbation of heart failure with preserved ejection fraction and atypical pneumonia * Patient remains intubated and sedated. She has attempted self extubation during this admission and had to be intubated again. * Pulmonology on board. Management as per critical care. On antibiotics and steroids. Also being diuresed with IV Lasix. * Management as per critical care * On IV Zosyn and vancomycin. Sputum cultures growing corynebacterium. To continue Zosyn. * Sputum culture also growing presumptive Shakira albicans 2+. Will defer to critical care about initiating troponins * She is on a Precedex drip. #COPD exacerbation: As above #Atypical pneumonia: CT chest showed lateral interstitial thickening which was thought to be edema versus infection. On broad-spectrum antibiotics and management as above. #Severe hypokalemia: Potassium was down to 2.7. Replace aggressively via IV potassium and also with the GT tube #Acute exacerbation of heart failure preserved ejection fraction: Has known EF of 70%. Being diuresed with IV Lasix. #Paroxysmal A-fib: On Eliquis. #Severe aortic stenosis: Has been evaluated for TAVR at [facility]. Will need follow-up once she is extubated clinically stable. #Depression with anxiety: On buspirone and Xanax down the feeding tube #Anemia: Monitor hemoglobin closely. Transfuse if Hb is less than 7 #DVT prophylaxis: Already on Eliquis Charges/Coding Visit Charges Inpatient E&M: [id number] [facility] L3
[2025-03-02] MEDS: Propofol 10MG/Ml 1,000 MG/100 ML Bottle 6.6 MG CONT INF (16:01)
[2025-03-02] MEDS: Acetaminophen 650 MG/20 ML UDC 1000 MG NG (21:18)
[2025-03-02 21:49] LABS: Vancomycin, Trough Level 15.8 ug/mL (5.0-15.0)
--- NOTE | 2025-03-02 22:06 | PCM.RX.CS ---
Consult Antibiotic Management Pharmacy has been consulted to manage selected antibiotic: Vancomycin Type of Intervention Type of Consult: Follow-up Suspected Infection Suspected Infection: Pneumonia Labs Labs: Sodium 140 mmol/L (133-145) 03/02/25 06:10 Potassium 2.7 mmol/L (3.3-5.1) L* 03/02/25 06:10 Chloride 101 mmol/L (98-108) 03/02/25 06:10 Carbon Dioxide 29.1 mmol/L (21.0-32.0) 03/02/25 06:10 Anion Gap 10 (5-15) 03/02/25 06:10 BUN 10 mg/dL (4-19) 03/02/25 06:10 Creatinine 0.46 mg/dL (0.70-1.20) L 03/02/25 06:10 Est GFR (MDRD) Non-Af 103 (>60) 03/02/25 06:10 BUN/Creatinine Ratio 21.5 RATIO (10-20) H 03/02/25 06:10 Glucose 131 mg/dL (70-99) H 03/02/25 06:10 Vancomycin Trough 15.8 ug/mL (5.0-15.0) H 03/02/25 21:17 Microbiology Microbiology: Microbiology 02/27/25 15:51 Sputum, Induced/Lukens Gram Stain - Final 02/27/25 15:51 Sputum, Induced/Lukens Respiratory Culture - Final Presumptive C albicans 02/24/25 13:30 Blood Culture (Wb) - Anticubital Left Blood Culture - Final No growth in 5 days. 02/24/25 13:14 Blood Culture (Wb) - Anticubital Right Blood Culture - Final No growth in 5 days. 02/24/25 22:21 Sputum, Induced/Lukens Gram Stain - Final 02/24/25 22:21 Sputum, Induced/Lukens Respiratory Culture - Final Corynebacterium striatum 02/27/25 02:50 Stool Stool Occult Blood (MODE) - Final Occult Blood Positive 02/24/25 21:10 Mucosa - Nasopharyngeal Respiratory Panel (PCR) - Final 02/24/25 22:08 Urine Catheter - Alvarenga Legionella Antigen - Final 02/24/25 22:08 Urine Catheter - Alvarenga Streptococcus pneumoniae Antigen (M - Final 02/24/25 20:56 Nasal Secretion MRSA (PCR) - Final 02/24/25 13:36 Mucosa - Nose SARS-CoV-2, Influenza & RSV (PCR) - Final Dosing Weight Weight used for dosin.4 kg Estimated Creatinine Clearance Estimated Creatinine Clearance: 113 Goal Trough Goal Trough: 15-20 mcg/mL Pharmacy Plan for Drug Dosing Pharmacy Plan for Drug Dosing: Vancomycin trough level of 15.8 was within the target range of 15-20. Will continue dosing at 1000mg q12h and will draw another trough level in two days. Pharmacy Service will continue to monitor and adjust dosing as required. Follow-Up Labs Follow-Up Labs: Trough: Vancomycin Date/Time Labs Ordered Labs to be done on [date and time ordered]: 03/04/25 @0767
[2025-03-03] VITALS (40 sets, daily range): BP systolic 100–143; BP diastolic 53–86; PULSE 80–105; RESP 16–17; TEMP 37.6–38.7; O2SAT 96–99; BMI 27.0; BMI 27.1
[2025-03-03] MEDS: CHLORHEXIDINE GLUC 2% CLOTH 1 EACH TOWELETTE TOPICAL (00:39)
[2025-03-03] MEDS: fentaNYL drip 100 ML 17.5 MCG CONT INF ×5 (02:51→23:56)
[2025-03-03] MEDS: dexMEDEtomidine 1,000 MCG in 0.9% Normal Saline (250mL Bag) 240 ML 27.5 MCG CONT INF (03:47)
[2025-03-03] MEDS: Propofol 10MG/Ml 1,000 MG/100 ML Bottle 4.4 MG CONT INF (03:47)
[2025-03-03] MEDS: Norepinephrine 8 MG in 0.9% Normal Saline (250mL Bag) 242 ML 11.3 MG CONT INF (05:15)
[2025-03-03 05:39] LABS: Hematocrit 24.6 % (37-47); Hemoglobin 7.8 g/dL (12.0-15.0); Immature Granulocytes Count 0.100 X10^3/uL (0.0-0.0); Mean Corp Hgb Conc 31.7 g/dL (32-36); Mean Corpuscular Volume 77.1 fL (81-99); Mean Platelet Vol. 10.5 fl (6.2-12.0); NRBC Flagged by Analyzer 0 % (0-5); Platelet Count 359 K/mm3 (150-450); RBC Distribution Width CV 16.3 % (11.6-14.6); RBC Distribution Width SD 46.4 fl (35.1-43.9); Red Blood Count 3.19 M/mm3 (4.2-5.4); White Blood Count 9.1 K/mm3 (4.4-11.0)
--- NOTE | 2025-03-03 05:50 | RAD_ITS ---
PROCEDURE: CHEST 1 VIEW (PORTABLE) 03/03/2025 REASON FOR EXAM: RESPIRATORY FAILURE TECHNIQUE: Frontal view of the chest. COMPARISON: 03/02/2025 FINDINGS: Hardware: Endotracheal tube, enteric tube, and right PICC line catheter unchanged Heart: Cardiac and mediastinal contours are stable. Lungs: The lungs are clear. No pneumothorax or pleural effusion. Bones: The bones are unremarkable. RAD/Chest 1 View (Portable) IMPRESSION: No Acute Findings. Reading Location: [facility]
[2025-03-03 06:14] LABS: Anion Gap 10 (5-15); BUN 8 mg/dL (4-19); BUN/Creat Ratio 14.3 RATIO (10-20); Calcium,Total 7.8 mg/dL (7.6-11.0); Carbon Dioxide 28.0 mmol/L (21.0-32.0); Chloride 102 mmol/L (98-108); Estimated Creatinine Clearance 64.48 ml/min (50-250); Glucose 131 mg/dL (70-99); Potassium 3.2 mmol/L (3.3-5.1)
[2025-03-03 06:41] LABS: CPK Total, Creatine Kinase 50 U/L (24-195); Triglycerides 288 mg/dL
[2025-03-03] MEDS: Potassium Chloride 10mEq/100mL 10 MEQ/100 ML IV.SOLN. 100 MEQ IV BOLUS ×4 (08:49→12:46)
[2025-03-03] MEDS: Pantoprazole Sodium 40 MG in 0.9% Normal Saline (100mL MB+) 100 ML 300 MG IV (09:01)
[2025-03-03] MEDS: Polyethylene Glycol 3350 17 GM PACKET PO (09:08)
[2025-03-03] MEDS: Senna/Docusate Sodium 1 Tablet 2 TABLET GT ×2 (09:09→21:19)
[2025-03-03] MEDS: Vital AF 1.2 Cal Liquid 1,000 ML 20 ML GT (09:22)
[2025-03-03] MEDS: Chlorhexidine 15 ML PO ×2 (09:25→21:18)
[2025-03-03] MEDS: Vancomycin HCl 1,000 MG in 0.9% Normal Saline (250mL Bag) 250 ML 250 MG IV ×2 (10:35→21:20)
--- NOTE | 2025-03-03 11:23 | PN_ITS ---
Subjective Subjective Patient seen and examined. She remains intubated and sedated. Today she is able to actually open her eyes and responds to questions her RASS goal is around 0 to +1. However she is not able to answer questions. Unable to do review of systems. She remains on the ventilator. Objective Data Objective Data Vital Signs: Vital Signs Temp Pulse Resp BP Pulse Ox O2 Del Method O2 Flow Rate 100.9 F H 95 16 109/56 L 97 Mechanical Ventilator 35 03/03/25 05:00 03/03/25 08:00 03/03/25 08:00 03/03/25 07:00 03/03/25 08:00 03/03/25 08:00 02/28/25 18:00 FiO2 35 03/03/25 08:00 Oxygen Flow Rate (L/min) 35 Oxygen Delivery Method Mechanical Ventilator Weight: 158 lb 4.67 oz Body Mass Index (BMI) 27.1 Intake & Output: Intake and Output for Last 24 Hours 03/01/25 03/02/25 03/03/25 23:59 23:59 23:59 Intake Total 4462.61 / 4612.61 3146.47 / 3261.17 996.90 / 996.90 Output Total 2450 / 4125 5045 / 5045 1825 / 1825 Balance 2012.61 / 487.61 -1898.53 / -1783.83 -828.10 / -828.10 Lab / Micro Data 03/03/25 05:26 03/03/25 05:26 Labs: Laboratory Results - last 24 hr 03/02/25 21:17: Vancomycin Trough 15.8 H 03/03/25 05:26: WBC 9.1, RBC 3.19 L, Hgb 7.8 L, Hct 24.6 L, MCV 77.1 L, MCH 24.5 L, MCHC 31.7 L, RDW Std Deviation 46.4 H, RDW Coeff of Augustin 16.3 H, Plt Count 359, MPV 10.5, Immature Gran % (Auto) 1.100 H, Neut % (Auto) 65.6, Lymph % (Auto) 15.9 L, [place] % (Auto) 9.1, Eos % (Auto) 8.2 H, Baso % (Auto) 0.1, Absolute Neuts (auto) 6.0, Absolute Lymphs (auto) 1.45, Nucleated RBC % 0, Sodium 140, Potassium 3.2 L, Chloride 102, Carbon Dioxide 28.0, Anion Gap 10, BUN 8, Creatinine 0.56 L, Estim Creat Clear Calc 64.48, Est GFR (MDRD) Non-Af 99, BUN/Creatinine Ratio 14.3, Glucose 131 H, Calcium 7.8, Total Creatine Kinase 50, Triglycerides 288 H Micro: Microbiology 02/27/25 15:51 Sputum, Induced/Lukens Gram Stain - Final 02/27/25 15:51 Sputum, Induced/Lukens Respiratory Culture - Final Presumptive C albicans 02/24/25 13:30 Blood Culture (Wb) - Anticubital Left Blood Culture - Final No growth in 5 days. 02/24/25 13:14 Blood Culture (Wb) - Anticubital Right Blood Culture - Final No growth in 5 days. 02/24/25 22:21 Sputum, Induced/Lukens Gram Stain - Final 02/24/25 22:21 Sputum, Induced/Lukens Respiratory Culture - Final Corynebacterium striatum 02/27/25 02:50 Stool Stool Occult Blood (MODE) - Final Occult Blood Positive 02/24/25 21:10 Mucosa - Nasopharyngeal Respiratory Panel (PCR) - Final 02/24/25 22:08 Urine Catheter - Alvarenga Legionella Antigen - Final 02/24/25 22:08 Urine Catheter - Alvarenga Streptococcus pneumoniae Antigen (M - Final 02/24/25 20:56 Nasal Secretion MRSA (PCR) - Final 02/24/25 13:36 Mucosa - Nose SARS-CoV-2, Influenza & RSV (PCR) - Final Radiography Diagnostic Testing: Radiology Impression Chest X-Ray 03/03/25 05:50 IMPRESSION: No Acute Findings. Reading Location: [facility] Rhythm Strip Rhythm Strip: Sinus Tach Physical Exam Const Constitutional Narrative: Intubated, sedated, RASS score is 0 HEENT normocephalic, head/scalp atraumatic, moist oral mucous membranes and oropharynx normal Eyes EOMs intact bilaterally Neck supple and no JVD Lymph Lymphatic: no lymphadenopathy noted Resp Resp Narrative: Patient intubated, sedated, RASS score is 0 Cardio regular rate, regular rhythm, S1 normal heart sound, S2 normal heart sound and no murmurs GI normal to inspection, nondistended, normoactive bowel sounds, soft to palpation and non-tender Extremity normal capillary refill and no clubbing, cyanosis or edema General Extremity: no tenderness to palpation of joints or extremities Skin General Skin Exam: no breakdown Neuro Neuro Narrative: intubated, sedated Motor Exam: general weakness Assessment & Plan Assessment/Plan (1) Multifocal pneumonia: (2) Acute on chronic respiratory failure with hypoxia and hypercapnia: PLAN: Plan #Acute on chronic hypoxic and hypercapnic respiratory failure due to COPD exacerbation, acute exacerbation of heart failure with preserved ejection fraction and atypical pneumonia * Patient remains intubated and sedated. She has attempted self extubation during this admission and had to be intubated again. * Pulmonology on board. Management as per critical care. On antibiotics and steroids. Also being diuresed with IV Lasix. * Management as per critical care * On IV Zosyn and vancomycin. Sputum cultures growing corynebacterium. To continue Zosyn. * Sputum culture also growing presumptive Shakira albicans 2+. Will defer to critical care about initiating antifungals * She is on a Precedex drip. #COPD exacerbation: As above #Atypical pneumonia: CT chest showed lateral interstitial thickening which was thought to be edema versus infection. On broad-spectrum antibiotics and management as above. #Severe hypokalemia: Potassium was down to 2.7. Replace aggressively via IV potassium and also with the GT tube #Acute exacerbation of heart failure preserved ejection fraction: Has known EF of 70%. Being diuresed with IV Lasix. #Paroxysmal A-fib: On Eliquis. #Severe aortic stenosis: Has been evaluated for TAVR at [facility]. Will need follow-up once she is extubated clinically stable. #Depression with anxiety: On buspirone and Xanax down the feeding tube #Anemia: Monitor hemoglobin closely. Transfuse if Hb is less than 7 #DVT prophylaxis: Already on Eliquis Charges/Coding Visit Charges Inpatient E&M: [id number] [facility] Hosp L3
[2025-03-03] MEDS: dexMEDEtomidine 1,000 MCG in 0.9% Normal Saline (250mL Bag) 240 ML 26.9 MCG CONT INF ×2 (13:00→23:05)
--- NOTE | 2025-03-03 14:52 | PN.CC_ITS ---
Objective Data Objective Data Vital Signs: Vital Signs Last response 3 Temperature 37.7 C H 03/03/25 14:00 Temperature Source Core 03/03/25 14:00 Pulse Rate 83 03/03/25 14:00 Pulse Strength Weak (1+) 03/03/25 10:00 Respiratory Rate 16 03/03/25 14:00 Respiratory Effort Mechanically Ventilated 03/03/25 12:00 Respiratory Depth Normal 03/03/25 04:00 Respiratory Pattern Normal 03/03/25 04:34 Blood Pressure 124/66 H 03/03/25 14:00 Blood Pressure Mean 85 03/03/25 14:00 Blood Pressure Source Monitor 03/03/25 14:00 Blood Pressure Position Supine 03/03/25 14:00 Blood Pressure Location Left Arm 03/03/25 14:00 Pulse Ox 97 03/03/25 14:00 Oxygen Delivery Method Mechanical Ventilator 03/03/25 14:00 Oxygen Flow Rate (L/min) 35 02/28/25 18:00 Fraction of Inspired Oxygen (FIO2) 35 03/03/25 14:00 I&O: I&O Last 24 Hours 3 03/02/25 03/03/25 03/03/25 23:59 11:59 23:59 Intake Total 1703.12 / 3261.17 1306.86 / 2106.86 800.00 / 2106.86 Output Total 2175 / 5045 1825 / 3060 1235 / 3060 Balance -471.88 / -1783.83 -518.14 / -953.14 -435.00 / -953.14 I&O: Total Stay 3 02/24/25 13:06 thru 03/03/25 14:00 Intake Total 95148.54 Output Total 67194 Balance 4284.54 Current Meds Ordered / Administered: Current meds ordered / Administered 3 Generic Name Dose Route Start Last Admin Trade Name Freq PRN Reason Stop Dose Admin Acetaminophen 1,000 mg 02/25/25 08:56 03/02/25 21:18 Acetaminophen 650 Mg/20 Ml Udc NG 1,000 mg Q8H PRN Administration FEVER Albuterol/Ipratropium 3 ml 02/24/25 20:22 03/03/25 10:40 Ipratropium/Albuterol Sulfate 3 Ml Ampul.Neb INHALATION 3 ml Q4H.RT HINA Administration Alprazolam 0.5 mg 02/28/25 14:00 03/03/25 12:54 Alprazolam 0.5 Mg Tablet PO 0.5 mg TID HINA Administration Bisacodyl 10 mg 02/25/25 09:29 Bisacodyl 10 Mg Suppository RC DAILY PRN constipation Buspirone HCl 10 mg 02/28/25 14:00 03/03/25 12:53 Buspirone 5 Mg Tablet PO 10 mg TID HINA Administration Carvedilol 3.125 mg 02/25/25 17:00 03/03/25 08:48 Carvedilol 3.125 Mg Tablet GT Not Given BIDCM [facility] Protocol Chlorhexidine Gluconate 15 ml 02/25/25 10:00 03/03/25 09:25 Chlorhexidine 15 Ml PO 15 ml BID HINA Administration Chlorhexidine Gluconate 1 each 02/25/25 10:00 03/03/25 00:39 Chlorhexidine Gluc 2% Cloth 1 Each [place] TOPICAL 1 each DAILY HINA Administration Furosemide 40 mg 02/27/25 14:00 03/03/25 12:54 Furosemide 40 Mg/4 Ml Vial IV 40 mg Q8 HINA Administration Protocol Fentanyl 100 mls @ 2.5 mls/hr 02/24/25 15:45 03/03/25 14:00 CONT INF 175 mcg/hr UD HINA 17.5 mls/hr Protocol Titration 25 MCG/HR Propofol 1,000 mg in 100 mls @ 4.308 mls/hr 02/24/25 15:45 03/03/25 14:00 Diprivan CONT INF 10 mcg/kg/min .Q12H HINA 4.3 mls/hr Protocol Titration 10 MCG/KG/MIN Sodium Chloride 250 mls @ 15 mls/hr 02/24/25 20:42 03/02/25 14:36 IV 0 mls/hr .[id number] PRN Infusion Saline Flush Sodium Chloride 250 mls @ 15 mls/hr 02/24/25 20:42 IV .[id number] PRN Additional IVPB Infusion Pantoprazole Sodium 40 mg/ 100 mls @ 300 mls/hr 02/25/25 10:00 03/03/25 09:24 Sodium Chloride IV Infused Q24 HINA Infusion Enteral Nutritional Formula 1,000 mls @ 50 mls/hr 02/25/25 13:15 03/03/25 09:22 Vital Af 1.2 Shiva Liquid GT 20 mls/hr .Q20H HINA Administration Dexmedetomidine HCl 1,000 mcg/ 250 mls @ 8.975 mls/hr 02/26/25 22:00 03/03/25 14:00 Sodium Chloride CONT INF 1.5 mcg/kg/hr .[id number] HINA 26.9 mls/hr Protocol Titration 0.5 MCG/KG/HR Norepinephrine Bitartrate 8 mg 250 mls @ 9.375 mls/hr 02/28/25 02:25 03/03/25 14:00 / Sodium Chloride CONT INF 6 mcg/min .[id number] HINA 11.3 mls/hr Protocol Titration 5 MCG/MIN Vancomycin IV-PHARMACY TO DOSE 500 mls @ 250 mls/hr 03/01/25 09:28 1 each/ Sodium Chloride IV X1 PRN Rx to Dose Protocol Vancomycin HCl 1,000 mg/ 270 mls @ 250 mls/hr 03/01/25 22:00 03/03/25 13:08 Sodium Chloride IV Infused Q12H HINA Infusion Metoclopramide HCl 10 mg 03/02/25 12:00 03/03/25 11:46 Metoclopramide 10 Mg/2 Ml Vial IV 10 mg Q6 HINA Administration Oxycodone HCl 2.5 - 5 mg 02/24/25 20:22 Oxycodone 5 Mg Tablet NG Q4H PRN PRN Pain Score 4-10 Polyethylene Glycol 17 gm 03/01/25 14:15 03/03/25 09:08 Polyethylene Glycol 3350 17 Gm Packet PO 17 gm DAILY HINA Administration Senna/Docusate Sodium 2 tablet 02/25/25 22:00 03/03/25 09:09 Senna/Docusate Sodium 1 Tablet GT 2 tablet BID HINA Administration Sodium Chloride 10 - 40 ml 02/24/25 20:42 03/02/25 21:16 0.9% Saline Lock 10 Ml Syringe IV 10 ml UD PRN Administration SALINE FLUSH Vancomycin Protocol 1 lab 03/04/25 20:30 Vancomycin Trough/Random Due MC 03/04/25 22:30 DAILY HINA Lab / Micro Data Attestation: I reviewed the patient's lab results. 03/03/25 05:26 03/03/25 05:26 Labs: Laboratory Results - last 24 hr 03/02/25 21:17: Vancomycin Trough 15.8 H 03/03/25 05:26: WBC 9.1, RBC 3.19 L, Hgb 7.8 L, Hct 24.6 L, MCV 77.1 L, MCH 24.5 L, MCHC 31.7 L, RDW Std Deviation 46.4 H, RDW Coeff of Augustin 16.3 H, Plt Count 359, MPV 10.5, Immature Gran % (Auto) 1.100 H, Neut % (Auto) 65.6, Lymph % (Auto) 15.9 L, [place] % (Auto) 9.1, Eos % (Auto) 8.2 H, Baso % (Auto) 0.1, Absolute Neuts (auto) 6.0, Absolute Lymphs (auto) 1.45, Nucleated RBC % 0, Sodium 140, Potassium 3.2 L, Chloride 102, Carbon Dioxide 28.0, Anion Gap 10, BUN 8, Creatinine 0.56 L, Estim Creat Clear Calc 64.48, Est GFR (MDRD) Non-Af 99, BUN/Creatinine Ratio 14.3, Glucose 131 H, Calcium 7.8, Total Creatine Kinase 50, Triglycerides 288 H Micro: Microbiology 02/27/25 15:51 Sputum, Induced/Lukens Gram Stain - Final 02/27/25 15:51 Sputum, Induced/Lukens Respiratory Culture - Final Presumptive C albicans Rhythm Strip Rhythm Strip: Sinus Tach Imaging Radiology Impression Chest X-Ray 03/03/25 05:50 IMPRESSION: No Acute Findings. Reading Location: [facility] Assessment and Plan . Assessment and plan: A/P: #Acute resp failure #COPD/asthma exacerbation #?PNA #Anemia #Anxiety #Depression #AoV stenosis #RLS #A-fib #HTN -Cont MV; settings reviewed/adjusted; F/U ABG/CXR; sedation/analgesia; failed extubation almost immediately and required reintubation, of note she self- extubated in the ED and required emergent reintubation again -Anxiety/agitation have limited weaning; -start daily SBTs -Very high anxiety needs --> PO buspirone and scheduled Xanax down feeding tube -Cont emp IV Abx- Zosyn; F/U Cx --> Corynebacterium from sputum Cx ; CXR no sig infiltrates, follow fever curve (38.4 on 03/01) and without leukocytosis so will cont just Zosyn for now to complete 5-7d course -Cont nebs; IV methylpred Critical Care Time: 50 minutes The entirety of this encounter was done via Telemedicine Physical Exam Const General Appearance: intubated and patient mechanically ventilated Exam Limitations: behavioral limitations HEENT normocephalic Eyes PERRL Neck full ROM Resp Effort and Inspection: mechanically ventilated Subjective Subjective Events reviewed. She has been stable while intubated and sedated
[2025-03-03] MEDS: Propofol 10MG/Ml 1,000 MG/100 ML Bottle 4.3 MG CONT INF (16:14)
[2025-03-03] MEDS: Potassium Chloride Oral Soln 20 MEQ/15 ML UDC 60 MEQ PO (23:16)
[2025-03-04] VITALS (48 sets, daily range): BP systolic 87–136; BP diastolic 50–68; PULSE 84–97; RESP 0–16; TEMP 37.8–38.7; O2SAT 16–100; BMI 26.2
[2025-03-04] MEDS: Propofol 10MG/Ml 1,000 MG/100 ML Bottle 8.6 MG CONT INF (02:03)
[2025-03-04] MEDS: Norepinephrine 8 MG in 0.9% Normal Saline (250mL Bag) 242 ML 13.1 MG CONT INF (02:05)
[2025-03-04 03:50] LABS: Hematocrit 26.9 % (37-47); Hemoglobin 8.2 g/dL (12.0-15.0); Immature Granulocytes Count 0.100 X10^3/uL (0.0-0.0); Mean Corp Hgb Conc 30.5 g/dL (32-36); Mean Corpuscular Volume 76.2 fL (81-99); Mean Platelet Vol. 10.2 fl (6.2-12.0); NRBC Flagged by Analyzer 0 % (0-5); Platelet Count 418 K/mm3 (150-450); RBC Distribution Width CV 16.3 % (11.6-14.6); RBC Distribution Width SD 44.8 fl (35.1-43.9); Red Blood Count 3.53 M/mm3 (4.2-5.4); White Blood Count 8.5 K/mm3 (4.4-11.0)
[2025-03-04 04:37] LABS: Anion Gap 11 (5-15); BUN 6 mg/dL (4-19); BUN/Creat Ratio 12.9 RATIO (10-20); Calcium,Total 8.3 mg/dL (7.6-11.0); Carbon Dioxide 28.5 mmol/L (21.0-32.0); Chloride 101 mmol/L (98-108); Estimated Creatinine Clearance 64.48 ml/min (50-250); Glucose 131 mg/dL (70-99); Potassium 3.1 mmol/L (3.3-5.1)
[2025-03-04] MEDS: fentaNYL drip 100 ML 17.5 MCG CONT INF ×4 (05:08→20:58)
[2025-03-04] MEDS: Potassium Chloride Oral Soln 20 MEQ/15 ML UDC 60 MEQ PO (05:12)
[2025-03-04] MEDS: dexMEDEtomidine 1,000 MCG in 0.9% Normal Saline (250mL Bag) 240 ML 26.2 MCG CONT INF (08:06)
[2025-03-04] MEDS: Vancomycin HCl 1,000 MG in 0.9% Normal Saline (250mL Bag) 250 ML 250 MG IV (08:42)
[2025-03-04] MEDS: Pantoprazole Sodium 40 MG in 0.9% Normal Saline (100mL MB+) 100 ML 300 MG IV (08:47)
[2025-03-04] MEDS: 0.9% Normal Saline (250mL Bag) 250 ML 15 ML IV (08:48)
[2025-03-04] MEDS: 0.9% Saline Lock 10 ML Syringe IV (08:50)
[2025-03-04] MEDS: Chlorhexidine 15 ML PO ×2 (09:00→21:57)
[2025-03-04] MEDS: Senna/Docusate Sodium 1 Tablet 2 TABLET GT ×2 (09:06→21:56)
--- NOTE | 2025-03-04 09:30 | NURSING ---
Dr. Calvillo would like to try a SBT without stopping sedation. RN made MD aware of sedation levels. Respiratory at bedside to adjust settings. Patient became apneic and failed trial. Blood gas ordered for tomorrow morning.
[2025-03-04 10:09] LABS: Potassium 3.9 mmol/L (3.3-5.1)
--- NOTE | 2025-03-04 10:19 | PN_ITS ---
Subjective Subjective Patient seen and examined. Her nurse was by her bedside. Patient still remains intubated and sedated. RASS score is 0. She does have a mild fever of 100.1 Fahrenheit today. Per her nurse she is noted to be having increased residuals at residuals from tube feeds today was about 150 cc. She is getting Reglan. Objective Data Objective Data Vital Signs: Vital Signs Temp Pulse Resp BP Pulse Ox O2 Del Method O2 Flow Rate 101.4 F H 93 16 102/64 95 Mechanical Ventilator 35 03/04/25 10:00 03/04/25 10:00 03/04/25 10:00 03/04/25 10:00 03/04/25 10:00 03/04/25 10:00 02/28/25 18:00 FiO2 35 03/04/25 07:15 Oxygen Flow Rate (L/min) 35 Oxygen Delivery Method Mechanical Ventilator Weight: 153 lb 14.122 oz Body Mass Index (BMI) 26.2 Intake & Output: Intake and Output for Last 24 Hours 03/02/25 03/03/25 03/04/25 23:59 23:59 23:59 Intake Total 3146.47 / 3261.17 3457.06 / 3602.79 1034.62 / 1034.62 Output Total 5045 / 5045 4160 / 4560 700 / 700 Balance -1898.53 / -1783.83 -702.94 / -957.21 334.62 / 334.62 Lab / Micro Data 03/04/25 03:45 03/04/25 09:30 Labs: Laboratory Results - last 24 hr 03/04/25 03:45: WBC 8.5, RBC 3.53 L, Hgb 8.2 L, Hct 26.9 L, MCV 76.2 L, MCH 23.2 L, MCHC 30.5 L, RDW Std Deviation 44.8 H, RDW Coeff of Augustin 16.3 H, Plt Count 418, MPV 10.2, Immature Gran % (Auto) 1.200 H, Neut % (Auto) 63.1, Lymph % (Auto) 17.5 L, [place] % (Auto) 9.8, Eos % (Auto) 8.0 H, Baso % (Auto) 0.4, Absolute Neuts (auto) 5.3, Absolute Lymphs (auto) 1.48, Nucleated RBC % 0, Sodium 141, Potassium 3.1 L, Chloride 101, Carbon Dioxide 28.5, Anion Gap 11, BUN 6, Creatinine 0.45 L, Estim Creat Clear Calc 64.48, Est GFR (MDRD) Non-Af 104, BUN/Creatinine Ratio 12.9, Glucose 131 H, Calcium 8.3 03/04/25 09:30: Potassium 3.9 Micro: Microbiology 02/27/25 15:51 Sputum, Induced/Lukens Gram Stain - Final 02/27/25 15:51 Sputum, Induced/Lukens Respiratory Culture - Final Presumptive C albicans 02/24/25 13:30 Blood Culture (Wb) - Anticubital Left Blood Culture - Final No growth in 5 days. 02/24/25 13:14 Blood Culture (Wb) - Anticubital Right Blood Culture - Final No growth in 5 days. 02/24/25 22:21 Sputum, Induced/Lukens Gram Stain - Final 02/24/25 22:21 Sputum, Induced/Lukens Respiratory Culture - Final Corynebacterium striatum 02/27/25 02:50 Stool Stool Occult Blood (MODE) - Final Occult Blood Positive 02/24/25 21:10 Mucosa - Nasopharyngeal Respiratory Panel (PCR) - Final 02/24/25 22:08 Urine Catheter - Alvarenga Legionella Antigen - Final 02/24/25 22:08 Urine Catheter - Alvarenga Streptococcus pneumoniae Antigen (M - Final 02/24/25 20:56 Nasal Secretion MRSA (PCR) - Final 02/24/25 13:36 Mucosa - Nose SARS-CoV-2, Influenza & RSV (PCR) - Final Rhythm Strip Rhythm Strip: Sinus Tach Physical Exam Const Constitutional Narrative: Intubated, sedated, RASS score is 0 HEENT normocephalic, head/scalp atraumatic, moist oral mucous membranes and oropharynx normal Eyes EOMs intact bilaterally Neck supple and no JVD Lymph Lymphatic: no lymphadenopathy noted Resp Resp Narrative: Patient intubated, sedated, RASS score is 0. moderately diminished breath sounds bibasally, no wheezes or crackles. Cardio regular rate, regular rhythm, S1 normal heart sound, S2 normal heart sound and no murmurs GI normal to inspection, nondistended, normoactive bowel sounds, soft to palpation and non-tender Extremity normal capillary refill and no clubbing, cyanosis or edema General Extremity: no tenderness to palpation of joints or extremities Skin General Skin Exam: no breakdown Neuro Neuro Narrative: intubated, sedated Motor Exam: general weakness Assessment & Plan Assessment/Plan (1) Multifocal pneumonia: (2) Acute on chronic respiratory failure with hypoxia and hypercapnia: PLAN: Plan #Acute on chronic hypoxic and hypercapnic respiratory failure due to COPD exacerbation, acute exacerbation of heart failure with preserved ejection fraction and atypical pneumonia * Patient remains intubated and sedated. She has attempted self extubation during this admission and had to be intubated again. * Pulmonology on board. Management as per critical care. On antibiotics and steroids. Also being diuresed with IV Lasix. * Management as per critical care * on IV vancomycin now. Sputum cultures growing corynebacterium. * Sputum culture also growing presumptive Shakira albicans 2+. Will defer to critical care about initiating antifungals * She is on a Precedex drip. #COPD exacerbation: As above #Atypical pneumonia: CT chest showed lateral interstitial thickening which was thought to be edema versus infection. On broad-spectrum antibiotics and management as above. #Severe hypokalemia: Resolved. Potassium is 3.9 today. #Nutrition: Patient currently on tube feeds. Has been having increased residuals as well as placed on Reglan also. Residuals today are around 150 cc. Will hold tube feeds for now and monitor. #Acute exacerbation of heart failure preserved ejection fraction: Has known EF of 70%. Being diuresed with IV Lasix. #Paroxysmal A-fib: On Eliquis which she has not been getting here, unclear why. Will resume #Severe aortic stenosis: Has been evaluated for TAVR at [facility]. Will need follow-up once she is extubated clinically stable. #Depression with anxiety: On buspirone and Xanax down the feeding tube #Anemia: Monitor hemoglobin closely. Transfuse if Hb is less than 7 #DVT prophylaxis: resume eliquis today. On SCDs Charges/Coding Visit Charges Inpatient E&M: [id number] [facility] [[email or web address] Hosp L3
[2025-03-04] MEDS: Propofol 10MG/Ml 1,000 MG/100 ML Bottle 8.4 MG CONT INF ×2 (11:36→20:58)
--- NOTE | 2025-03-04 14:23 | PN.CC_ITS ---
Objective Data Objective Data Vital Signs: Vital Signs Last response 3 Temperature 38.5 C H 03/04/25 13:00 Temperature Source Core 03/04/25 13:00 Pulse Rate 93 03/04/25 13:00 Pulse Strength Normal (2+) 03/04/25 10:00 Respiratory Rate 14 03/04/25 13:00 Respiratory Effort Normal, Non-Labored, Mechanically Ventilated 03/04/25 12:00 Respiratory Depth Normal 03/04/25 12:00 Respiratory Pattern Normal 03/04/25 12:00 Blood Pressure 109/58 L 03/04/25 13:00 Blood Pressure Mean 75 03/04/25 13:00 Blood Pressure Source Monitor 03/04/25 13:00 Blood Pressure Position Semi-Fowlers 03/04/25 13:00 Blood Pressure Location Left Arm 03/04/25 13:00 Pulse Ox 96 03/04/25 13:00 Oxygen Delivery Method Mechanical Ventilator 03/04/25 13:00 Oxygen Flow Rate (L/min) 35 02/28/25 18:00 Fraction of Inspired Oxygen (FIO2) 35 03/04/25 11:14 I&O: I&O Last 24 Hours 3 03/03/25 03/04/25 03/04/25 23:59 11:59 23:59 Intake Total 2150.20 / 3602.79 1819.45 / 1929.61 110.16 / 1929.61 Output Total 2335 / 4560 1850 / 1850 Balance -184.80 / -957.21 -30.55 / 79.61 110.16 / 79.61 I&O: Total Stay 3 02/24/25 13:06 thru 03/04/25 13:10 Intake Total 84903.35 Output Total 73294 Balance 4614.35 Current Meds Ordered / Administered: Current meds ordered / Administered 3 Generic Name Dose Route Start Last Admin Trade Name Freq PRN Reason Stop Dose Admin Acetaminophen 1,000 mg 02/25/25 08:56 03/02/25 21:18 Acetaminophen 650 Mg/20 Ml Udc NG 1,000 mg Q8H PRN Administration FEVER Albuterol/Ipratropium 3 ml 02/24/25 20:22 03/04/25 11:15 Ipratropium/Albuterol Sulfate 3 Ml Ampul.Neb INHALATION 3 ml Q4H.RT HINA Administration Alprazolam 0.5 mg 02/28/25 14:00 03/04/25 05:14 Alprazolam 0.5 Mg Tablet PO 0.5 mg TID HINA Administration Apixaban 5 mg 03/04/25 22:00 Apixaban 5 Mg Tablet GT BID HINA Bisacodyl 10 mg 02/25/25 09:29 Bisacodyl 10 Mg Suppository RC DAILY PRN constipation Buspirone HCl 10 mg 02/28/25 14:00 03/04/25 05:11 Buspirone 5 Mg Tablet PO 10 mg TID HINA Administration Carvedilol 3.125 mg 02/25/25 17:00 03/04/25 09:18 Carvedilol 3.125 Mg Tablet GT Not Given BIDCM [facility] Protocol Chlorhexidine Gluconate 15 ml 02/25/25 10:00 03/04/25 09:00 Chlorhexidine 15 Ml PO 15 ml BID HINA Administration Chlorhexidine Gluconate 1 each 02/25/25 10:00 03/04/25 10:52 Chlorhexidine Gluc 2% Cloth 1 Each [place] TOPICAL Not Given DAILY HINA Furosemide 40 mg 02/27/25 14:00 03/04/25 05:12 Furosemide 40 Mg/4 Ml Vial IV 40 mg Q8 HINA Administration Protocol Fentanyl 100 mls @ 2.5 mls/hr 02/24/25 15:45 03/04/25 13:00 CONT INF 175 mcg/hr UD HINA 17.5 mls/hr Protocol Titration 25 MCG/HR Propofol 1,000 mg in 100 mls @ 4.188 mls/hr 02/24/25 15:45 03/04/25 13:00 Diprivan CONT INF 20 mcg/kg/min .Q12H HINA 8.4 mls/hr Protocol Titration 10 MCG/KG/MIN Sodium Chloride 250 mls @ 15 mls/hr 02/24/25 20:42 03/04/25 08:48 IV 15 mls/hr .[id number] PRN Administration Saline Flush Sodium Chloride 250 mls @ 15 mls/hr 02/24/25 20:42 IV .[id number] PRN Additional IVPB Infusion Pantoprazole Sodium 40 mg/ 100 mls @ 300 mls/hr 02/25/25 10:00 03/04/25 10:53 Sodium Chloride IV Infused Q24 HINA Infusion Enteral Nutritional Formula 1,000 mls @ 50 mls/hr 02/25/25 13:15 03/04/25 09:10 Vital Af 1.2 Shiva Liquid GT 0 mls/hr .Q20H HINA Infusion Dexmedetomidine HCl 1,000 mcg/ 250 mls @ 8.725 mls/hr 02/26/25 22:00 03/04/25 13:00 Sodium Chloride CONT INF 1.4 mcg/kg/hr .[id number] HINA 24.4 mls/hr Protocol Titration 0.5 MCG/KG/HR Norepinephrine Bitartrate 8 mg 250 mls @ 9.375 mls/hr 02/28/25 02:25 03/04/25 13:00 / Sodium Chloride CONT INF 10 mcg/min .[id number] HINA 18.8 mls/hr Protocol Titration 5 MCG/MIN Vancomycin IV-PHARMACY TO DOSE 500 mls @ 250 mls/hr 03/01/25 09:28 1 each/ Sodium Chloride IV X1 PRN Rx to Dose Protocol Vancomycin HCl 1,000 mg/ 270 mls @ 250 mls/hr 03/01/25 22:00 03/04/25 10:30 Sodium Chloride IV Infused Q12H HINA Infusion Metoclopramide HCl 10 mg 03/02/25 12:00 03/04/25 12:48 Metoclopramide 10 Mg/2 Ml Vial IV 10 mg Q6 HINA Administration Oxycodone HCl 2.5 - 5 mg 02/24/25 20:22 Oxycodone 5 Mg Tablet NG Q4H PRN PRN Pain Score 4-10 Polyethylene Glycol 17 gm 03/01/25 14:15 03/04/25 12:48 Polyethylene Glycol 3350 17 Gm Packet PO Not Given DAILY HINA Senna/Docusate Sodium 2 tablet 02/25/25 22:00 03/04/25 09:06 Senna/Docusate Sodium 1 Tablet GT 2 tablet BID HINA Administration Sodium Chloride 10 - 40 ml 02/24/25 20:42 03/04/25 08:50 0.9% Saline Lock 10 Ml Syringe IV 10 ml UD PRN Administration SALINE FLUSH Vancomycin Protocol 1 lab 03/04/25 20:30 Vancomycin Trough/Random Due MC 03/04/25 22:30 DAILY HINA Lab / Micro Data Attestation: I reviewed the patient's lab results. 03/04/25 03:45 03/04/25 09:30 Labs: Laboratory Results - last 24 hr 03/04/25 03:45: WBC 8.5, RBC 3.53 L, Hgb 8.2 L, Hct 26.9 L, MCV 76.2 L, MCH 23.2 L, MCHC 30.5 L, RDW Std Deviation 44.8 H, RDW Coeff of Augustin 16.3 H, Plt Count 418, MPV 10.2, Immature Gran % (Auto) 1.200 H, Neut % (Auto) 63.1, Lymph % (Auto) 17.5 L, Kay % (Auto) 9.8, Eos % (Auto) 8.0 H, Baso % (Auto) 0.4, Absolute Neuts (auto) 5.3, Absolute Lymphs (auto) 1.48, Nucleated RBC % 0, Sodium 141, Potassium 3.1 L, Chloride 101, Carbon Dioxide 28.5, Anion Gap 11, BUN 6, Creatinine 0.45 L, Estim Creat Clear Calc 64.48, Est GFR (MDRD) Non-Af 104, BUN/Creatinine Ratio 12.9, Glucose 131 H, Calcium 8.3 03/04/25 09:30: Potassium 3.9 Rhythm Strip Rhythm Strip: Sinus Tach Assessment and Plan . Assessment and plan: Assessment: #Acute resp failure #COPD/asthma exacerbation #?PNA #Anemia #Anxiety #Depression #AoV stenosis #RLS #A-fib #HTN Plan: -Cont MV; settings reviewed/adjusted; F/U ABG/CXR; same sedation/analgesia; failed extubation almost immediately and required reintubation, of note she self-extubated in the ED and required emergent reintubation again -Anxiety/agitation continue to limit weaning; -Very high anxiety needs --> PO buspirone and scheduled Xanax down feeding tube PLUS 3 sedating drips -Cont emp IV Abx- Zosyn; F/U Cx --> Corynebacterium from sputum Cx ; CXR no sig infiltrates, follow fever curve (38.4 on 03/01) and without leukocytosis so will cont just Zosyn for now to complete 5-7d course -Cont nebs; IV methylpred Critical Care Time: 50 minutes The entirety of this encounter was done via Telemedicine Physical Exam Const General Appearance: intubated and patient mechanically ventilated Eyes PERRL Neck full ROM Resp Effort and Inspection: symmetric chest movement, prolonged expiratory phase and mechanically ventilated Subjective Subjective Requiring extensive sedating regimen and yet remarkably is still able to open eyes and respond to stimuli. also requiring norepinephrine to maintain blood pressure
[2025-03-04] MEDS: dexMEDEtomidine 1,000 MCG in 0.9% Normal Saline (250mL Bag) 240 ML 22.7 MCG CONT INF (15:12)
[2025-03-04] MEDS: Norepinephrine 8 MG in 0.9% Normal Saline (250mL Bag) 242 ML 18.8 MG CONT INF (15:14)
[2025-03-04] MEDS: Acetaminophen 650 MG/20 ML UDC 1000 MG NG (16:05)
[2025-03-04] MEDS: Vital AF 1.2 Cal Liquid 1,000 ML 20 ML GT (16:07)
[2025-03-04] MEDS: APIXABAN 5 MG TABLET GT (21:59)
[2025-03-04 22:05] LABS: Vancomycin, Trough Level 14.8 ug/mL (5.0-15.0)
--- NOTE | 2025-03-04 22:12 | PCM.RX.CS ---
Consult Antibiotic Management Pharmacy has been consulted to manage selected antibiotic: Vancomycin Type of Intervention Type of Consult: Follow-up Suspected Infection Suspected Infection: Pneumonia Labs Labs: Sodium 141 mmol/L (133-145) 03/04/25 03:45 Potassium 3.9 mmol/L (3.3-5.1) 03/04/25 09:30 Chloride 101 mmol/L (98-108) 03/04/25 03:45 Carbon Dioxide 28.5 mmol/L (21.0-32.0) 03/04/25 03:45 Anion Gap 11 (5-15) 03/04/25 03:45 BUN 6 mg/dL (4-19) 03/04/25 03:45 Creatinine 0.45 mg/dL (0.70-1.20) L 03/04/25 03:45 Est GFR (MDRD) Non-Af 104 (>60) 03/04/25 03:45 BUN/Creatinine Ratio 12.9 RATIO (10-20) 03/04/25 03:45 Glucose 131 mg/dL (70-99) H 03/04/25 03:45 Vancomycin Trough 14.8 ug/mL (5.0-15.0) 03/04/25 21:39 Microbiology Microbiology: Microbiology 02/27/25 15:51 Sputum, Induced/Lukens Gram Stain - Final 02/27/25 15:51 Sputum, Induced/Lukens Respiratory Culture - Final Presumptive C albicans 02/24/25 13:30 Blood Culture (Wb) - Anticubital Left Blood Culture - Final No growth in 5 days. 02/24/25 13:14 Blood Culture (Wb) - Anticubital Right Blood Culture - Final No growth in 5 days. 02/24/25 22:21 Sputum, Induced/Lukens Gram Stain - Final 02/24/25 22:21 Sputum, Induced/Lukens Respiratory Culture - Final Corynebacterium striatum 02/27/25 02:50 Stool Stool Occult Blood (MODE) - Final Occult Blood Positive 02/24/25 21:10 Mucosa - Nasopharyngeal Respiratory Panel (PCR) - Final 02/24/25 22:08 Urine Catheter - Alvarenga Legionella Antigen - Final 02/24/25 22:08 Urine Catheter - Alvarenga Streptococcus pneumoniae Antigen (M - Final 02/24/25 20:56 Nasal Secretion MRSA (PCR) - Final 02/24/25 13:36 Mucosa - Nose SARS-CoV-2, Influenza & RSV (PCR) - Final Estimated Creatinine Clearance Estimated Creatinine Clearance: 64.48 Goal Trough Goal Trough: 15-20 mcg/mL Pharmacy Plan for Drug Dosing Pharmacy Plan for Drug Dosing: VANCOMYCIN LEVEL RECEIVED Current Vancomycin Dose: 1000mg Q12H Number of Doses Received: numerous Vancomycin Level: 14.8 Hours Since Last Dose: 11 Renal Function: sCr 0.45 Renal Function Trend: stable Lab/Micro: sputum cx (+) corynebacterium Vancomycin Plan/Comments: Increase Vancomycin dosing regimen to 1250mg Q12H Pending Level: 03/06/25 @ 10:00 prior to 4th dose Pharmacy Service will continue to monitor and adjust dosing as required. Follow-Up Labs Follow-Up Labs: Trough: Vancomycin (03/06/25 @ 10:00)
[2025-03-04] MEDS: Vancomycin HCl 1,250 MG in 0.9% Normal Saline (250mL Bag) 250 ML 167 MG IV (22:46)
[2025-03-05] VITALS (40 sets, daily range): BP systolic 93–148; BP diastolic 48–81; PULSE 87–102; RESP 14–19; TEMP 38.2–39.1; O2SAT 91–99; BMI 26.8
[2025-03-05] MEDS: fentaNYL drip 100 ML 17.5 MCG CONT INF ×4 (02:36→21:00)
[2025-03-05] MEDS: dexMEDEtomidine 1,000 MCG in 0.9% Normal Saline (250mL Bag) 240 ML 20.9 MCG CONT INF (02:37)
[2025-03-05] MEDS: Acetaminophen 650 MG/20 ML UDC 1000 MG NG ×2 (02:48→12:56)
[2025-03-05] MEDS: Norepinephrine 8 MG in 0.9% Normal Saline (250mL Bag) 242 ML 18.8 MG CONT INF (03:50)
[2025-03-05 04:31] LABS: Hematocrit 26.8 % (37-47); Hemoglobin 8.4 g/dL (12.0-15.0); Immature Granulocytes Count 0.150 X10^3/uL (0.0-0.0); Mean Corp Hgb Conc 31.3 g/dL (32-36); Mean Corpuscular Volume 75.9 fL (81-99); Mean Platelet Vol. 9.9 fl (6.2-12.0); NRBC Flagged by Analyzer 0 % (0-5); Platelet Count 439 K/mm3 (150-450); RBC Distribution Width CV 16.3 % (11.6-14.6); RBC Distribution Width SD 44.8 fl (35.1-43.9); Red Blood Count 3.53 M/mm3 (4.2-5.4); White Blood Count 9.2 K/mm3 (4.4-11.0)
[2025-03-05 04:52] LABS: Anion Gap 9 (5-15); BUN 7 mg/dL (4-19); BUN/Creat Ratio 13.2 RATIO (10-20); Calcium,Total 8.3 mg/dL (7.6-11.0); Carbon Dioxide 29.6 mmol/L (21.0-32.0); Chloride 100 mmol/L (98-108); Estimated Creatinine Clearance 63.64 ml/min (50-250); Glucose 138 mg/dL (70-99); Potassium 3.3 mmol/L (3.3-5.1)
[2025-03-05] MEDS: Propofol 10MG/Ml 1,000 MG/100 ML Bottle 8.4 MG CONT INF (05:22)
[2025-03-05 05:48] LABS: Allen Test Positive; Base Excess 10 mmol/L (-2 to +2); FI02 35.0; PEEP 5; PO2 70 mmHG (75-100); RR 14; SITE L Radial; SO2 94 % (94-98)
--- NOTE | 2025-03-05 07:33 | PCM.PN.INT ---
Assessment & Plan Assessment/Plan (1) Acute on chronic respiratory failure with hypoxia and hypercapnia: PLAN: Plan RECOMMENDATIONS: 1. Continue assist-control mode of mechanical ventilation. Continue to wean FiO2 and PEEP as tolerated. 2. Given failed extubation and inability to wean from vent, recommend proceeding with tracheostomy and PEG tube placement. 3. Continue antimicrobials to complete treatment course. 4. Continue scheduled bronchodilators. 5. Continue to hold Eliquis. 6. Continue Levophed to maintain a mean arterial pressure at or above 65 mmHg. 7. Continue tube feeding for nutritional support. 8. Continue appropriate GI prophylaxis. IMPRESSIONS: 1. Acute on chronic combined respiratory failure Unclear if this was truly precipitated by the patient's COPD with concurrent panic attacks versus sequelae of her valvular heart disease. Her presentation was once again similar to that encountered in January 2025. Her chest imaging on this admission is not overtly concerning for underlying pneumonia. However, in light of her decompensated status, will treat with antimicrobials x 7 days. The patient does have a known extensive tobacco abuse history with questionable COPD. She has not followed on an outpatient basis by a merchandising consultant. Given the patient's failed attempt at extubation coupled with her inability to be weaned from invasive mechanical ventilatory support, recommend proceeding with tracheostomy and PEG tube placement. ENT and gastroenterology have been consulted. Continue to hold Eliquis. 2. History of aortic valve stenosis/atrial fibrillation The patient needs to continue her outpatient workup and follow-up for possible TAVR. The patient has been maintained on Eliquis as an outpatient. However, due to her presenting anemia and need for tracheostomy and PEG tube, recommend continuing to hold Eliquis. 3. History of restless leg syndrome/anxiety/depression/former tobacco dependency/history of non-small cell lung cancer status post right lobectomy Complicates care, management, recovery and prognosis. Continue supportive measures as noted above. Continue tube feeding for nutritional support. TIME: 35 minutes of critical care time, independent of procedures, was spent addressing the patient's acute on chronic combined respiratory failure, aortic valve stenosis, atrial fibrillation, anemia, review of all data and collaboration with care team. Subjective Subjective The patient was seen and examined at the bedside this morning. Events from the last 24 hours have been reviewed. The patient currently has a low-grade fever and remains on Levophed at 10 mcg/min to maintain hemodynamic stability. The patient remains on assist-control mode of mechanical ventilation with an FiO2 requirement of 35% and a PEEP of 5. Unfortunately, she continues to fail spontaneous awakening and breathing trials. She remains sedated on propofol, fentanyl and Precedex. She is currently documented to be overall net +3.9 L for the hospitalization. White blood cell count is normal. Hemoglobin was noted to be 8.4 g/dL with a platelet count of 439,000. Arterial blood gas was notable for a pH of 7.43 with a pCO2 of 51 and pO2 of 70. Creatinine remains within normal limits. Objective Data Objective Data The patient's most recent lab work, culture data and imaging studies have all been personally reviewed. Surface echocardiogram last completed on January 26 demonstrated an ejection fraction of 70%. Sputum culture dated February 27 was positive for presumptive Shakira albicans. Vital Signs: Vital Signs Temp Pulse Resp BP Pulse Ox O2 Del Method O2 Flow Rate 101.2 F H 89 14 115/58 L 97 Mechanical Ventilator 35 03/05/25 07:00 03/05/25 07:00 03/05/25 07:00 03/05/25 07:00 03/05/25 07:00 03/05/25 07:00 02/28/25 18:00 FiO2 35 03/05/25 07:00 Oxygen Flow Rate (L/min) 35 Oxygen Delivery Method Mechanical Ventilator Weight: 156 lb 15.506 oz Body Mass Index (BMI) 26.8 Intake & Output: Intake and Output for Last 24 Hours 03/03/25 03/04/25 03/05/25 23:59 23:59 23:59 Intake Total 3457.06 / 3602.79 2701.57 / 2858.42 1241.55 / 1241.55 Output Total 4160 / 4560 3550 / 3825 1025 / 1025 Balance -702.94 / -957.21 -848.43 / -966.58 216.55 / 216.55 Lab / Micro Data Attestation: I reviewed the patient's lab results. 03/05/25 04:20 03/05/25 04:20 Labs: Laboratory Results - last 24 hr 03/04/25 09:30: Potassium 3.9 03/04/25 21:39: Vancomycin Trough 14.8 03/05/25 04:20: WBC 9.2, RBC 3.53 L, Hgb 8.4 L, Hct 26.8 L, MCV 75.9 L, MCH 23.8 L, MCHC 31.3 L, RDW Std Deviation 44.8 H, RDW Coeff of Augustin 16.3 H, Plt Count 439, MPV 9.9, Immature Gran % (Auto) 1.600 H, Neut % (Auto) 55.2, Lymph % (Auto) 21.3, [place] % (Auto) 12.1 H, Eos % (Auto) 9.5 H, Baso % (Auto) 0.3, Absolute Neuts (auto) 5.1, Absolute Lymphs (auto) 1.97, Nucleated RBC % 0, Sodium 138, Potassium 3.3, Chloride 100, Carbon Dioxide 29.6, Anion Gap 9, BUN 7, Creatinine 0.52 L, Estim Creat Clear Calc 63.64, Est GFR (MDRD) Non-Af 100, BUN/Creatinine Ratio 13.2, Glucose 138 H, Calcium 8.3 Micro: Microbiology 02/27/25 15:51 Sputum, Induced/Lukens Gram Stain - Final 02/27/25 15:51 Sputum, Induced/Lukens Respiratory Culture - Final Presumptive C albicans 02/24/25 13:30 Blood Culture (Wb) - Anticubital Left Blood Culture - Final No growth in 5 days. 02/24/25 13:14 Blood Culture (Wb) - Anticubital Right Blood Culture - Final No growth in 5 days. 02/24/25 22:21 Sputum, Induced/Lukens Gram Stain - Final 02/24/25 22:21 Sputum, Induced/Lukens Respiratory Culture - Final Corynebacterium striatum 02/27/25 02:50 Stool Stool Occult Blood (MODE) - Final Occult Blood Positive 02/24/25 21:10 Mucosa - Nasopharyngeal Respiratory Panel (PCR) - Final 02/24/25 22:08 Urine Catheter - Alvarenga Legionella Antigen - Final 02/24/25 22:08 Urine Catheter - Alvarenga Streptococcus pneumoniae Antigen (M - Final 02/24/25 20:56 Nasal Secretion MRSA (PCR) - Final 02/24/25 13:36 Mucosa - Nose SARS-CoV-2, Influenza & RSV (PCR) - Final ABG Data ABG results: ABG 03/05/25 05:44 Specimen Type ART Sample Site L Radial pH 7.43 Bicarbonate Actual 33.9 H Total CO2 36 Base Excess 10 H O2 Saturation 94 O2 % 35.0 ABG pCO2 50.9 H ABG pO2 70 L Issa Test Positive Respiration Rate 14 O2 Delivery Device Adult Vent Vent Mode AC Tidal Volume 400.0 POC PEEP 5 Radiography Diagnostic Testing: Radiology Impression Chest X-Ray 02/26/25 14:55 IMPRESSION: The tip of the endotracheal tube is at 3.4 cm proximal the kaylan. Improved aeration of both lungs with mild degree of residual linear markings at the lung bases and right upper lobe. Reading Location: [id number] Rhythm Strip Rhythm Strip: Sinus Tach Physical Exam Const Constitutional Narrative: Intubated, sedated and mechanically ventilated. HEENT normocephalic and head/scalp atraumatic Mouth: endotracheal tube in place and OG tube in place Eyes PERRL, conjunctivae normal and no scleral icterus Neck supple General: trachea midline Chest inspection of chest normal Resp normal respiratory effort Auscultation: diminished lung sounds; Negative for rales, rhonchi or wheezes Cardio S1 normal heart sound and S2 normal heart sound Rhythm: abnormal rhythm Heart Sounds: murmur GI soft to palpation and non-tender Extremity General Extremity: edema; Negative for clubbing Skin no rashes or lesions noted Neuro Sensorium / Orientation: sedated on vent Charges/Coding Procedures Hospitalists Procedures: [id number] Critical Care 1st Hr
[2025-03-05] MEDS: Chlorhexidine 15 ML PO ×2 (08:59→20:22)
[2025-03-05] MEDS: CHLORHEXIDINE GLUC 2% CLOTH 1 EACH TOWELETTE TOPICAL (08:59)
[2025-03-05] MEDS: Pantoprazole Sodium 40 MG in 0.9% Normal Saline (100mL MB+) 100 ML 300 MG IV (09:37)
[2025-03-05] MEDS: 0.9% Normal Saline (250mL Bag) 250 ML 15 ML IV (09:37)
[2025-03-05] MEDS: Propofol 10MG/Ml 1,000 MG/100 ML Bottle 8.5 MG CONT INF ×2 (09:38→18:38)
--- NOTE | 2025-03-05 09:44 | CASEMGMT ---
Per ICU rounds, GI and ENT require the patient's NOK to sign consent forms. See SW notes regarding pt's NOK. TC to pt's NOK, Nathaniel morton. No answer, VM left with request to return call and/ or come to [facility] for form signing. TC to pt's SO, Mike. No answer, VM left. CM and SW to continue to follow. Per ICU rounds, CM to initiate the LTACH process as able. Awaiting contact from the patient's NOK at this time.
[2025-03-05 09:51] LABS: Prothrombin Time (Protime)PT. 15.7 SECONDS (11.7-14.9)
[2025-03-05 09:52] LABS: Partial Thromboplast Time 46.2 Seconds (24.1-36.2)
[2025-03-05] MEDS: Senna/Docusate Sodium 1 Tablet 2 TABLET GT ×2 (10:50→20:22)
[2025-03-05] MEDS: Vancomycin HCl 1,250 MG in 0.9% Normal Saline (250mL Bag) 250 ML 167 MG IV ×2 (10:50→22:16)
[2025-03-05] MEDS: Polyethylene Glycol 3350 17 GM PACKET PO (10:54)
--- NOTE | 2025-03-05 12:28 | CASEMGMT ---
Addendum entered by Satya Altamirano 03/05/25 15:56: [facility] responds in [facility] stating that the referral is now under review. CM to follow. Original Note: The claim auditor reports that they were able to get in contact with the patient's son, Nathaniel, and that the son agrees with the patient getting a trach and peg. See note. This television writer called Nathaniel again at this time. Nathaniel answers the phone and states that he is willing to discuss DC planning. This television writer explained that the patient may warrant DC to an LTACH once medically ready for transfer. This television writer explained the LTACH process and what that would consist of. Nathaniel states understanding, and he agrees with the patient going to an LTACH once appropriate. This television writer provided the patient's son with a verbal list of local in-network LTACHs that were populated through the [facility] referral process. Nathaniel states that he does not have a preference and that he would simply prefer the closest facility. Informed Nathaniel that this would be [facility] in [place]. Informed the son that this is on the 4th floor of [facility]. Nathaniel states understanding and that this is the FOC. Ref[facility] [place] [facility] at this time with Demo sheet, Insurance card, H&P, progress notes, current med list, vent settings, and lab values. Informed the LTACH that the patient will be getting a trach and peg starting as early as tomorrow. Awaiting a return response. Informed the son that if the LTACH is able to accept, [facility] Staff will set up transportation through [facility] for the patient to transfer to the LTACH once appropriate. Pt’s son thanks this television writer and denies further questions or concerns at this time. CM to follow.
--- NOTE | 2025-03-05 13:04 | PCM.PROGNOTE ---
Subjective Subjective Patient remains intubated and sedated. Unable to do review of systems. GI and ENT have been consulted for PEG and trach respectively. She continues to run a fever and temperature was 102.1 Fahrenheit today. Objective Data Objective Data Vital Signs: Vital Signs Temp Pulse Resp BP Pulse Ox O2 Del Method O2 Flow Rate 102.1 F H 100 14 110/58 L 91 Mechanical Ventilator 35 03/05/25 12:00 03/05/25 12:39 03/05/25 12:39 03/05/25 12:30 03/05/25 12:39 03/05/25 12:00 02/28/25 18:00 FiO2 30 03/05/25 12:39 Oxygen Flow Rate (L/min) 35 Oxygen Delivery Method Mechanical Ventilator Weight: 156 lb 15.506 oz Body Mass Index (BMI) 26.8 Intake & Output: Intake and Output for Last 24 Hours 03/03/25 03/04/25 03/05/25 23:59 23:59 23:59 Intake Total 3457.06 / 3602.79 2701.57 / 2858.42 2471.25 / 2471.25 Output Total 4160 / 4560 3550 / 3825 1025 / 1025 Balance -702.94 / -957.21 -848.43 / -966.58 1446.25 / 1446.25 Lab / Micro Data 03/05/25 04:20 03/05/25 04:20 Labs: Laboratory Results - last 24 hr 03/04/25 21:39: Vancomycin Trough 14.8 03/05/25 04:20: WBC 9.2, RBC 3.53 L, Hgb 8.4 L, Hct 26.8 L, MCV 75.9 L, MCH 23.8 L, MCHC 31.3 L, RDW Std Deviation 44.8 H, RDW Coeff of Augustin 16.3 H, Plt Count 439, MPV 9.9, Immature Gran % (Auto) 1.600 H, Neut % (Auto) 55.2, Lymph % (Auto) 21.3, [place] % (Auto) 12.1 H, Eos % (Auto) 9.5 H, Baso % (Auto) 0.3, Absolute Neuts (auto) 5.1, Absolute Lymphs (auto) 1.97, Nucleated RBC % 0, Sodium 138, Potassium 3.3, Chloride 100, Carbon Dioxide 29.6, Anion Gap 9, BUN 7, Creatinine 0.52 L, Estim Creat Clear Calc 63.64, Est GFR (MDRD) Non-Af 100, BUN/Creatinine Ratio 13.2, Glucose 138 H, Calcium 8.3 03/05/25 09:30: PT 15.7 H, INR 1.2, APTT 46.2 H Micro: Microbiology 02/27/25 15:51 Sputum, Induced/Lukens Gram Stain - Final 02/27/25 15:51 Sputum, Induced/Lukens Respiratory Culture - Final Presumptive C albicans 02/24/25 13:30 Blood Culture (Wb) - Anticubital Left Blood Culture - Final No growth in 5 days. 02/24/25 13:14 Blood Culture (Wb) - Anticubital Right Blood Culture - Final No growth in 5 days. 02/24/25 22:21 Sputum, Induced/Lukens Gram Stain - Final 02/24/25 22:21 Sputum, Induced/Lukens Respiratory Culture - Final Corynebacterium striatum 02/27/25 02:50 Stool Stool Occult Blood (MODE) - Final Occult Blood Positive 02/24/25 21:10 Mucosa - Nasopharyngeal Respiratory Panel (PCR) - Final 02/24/25 22:08 Urine Catheter - Alvarenga Legionella Antigen - Final 02/24/25 22:08 Urine Catheter - Alvarenga Streptococcus pneumoniae Antigen (M - Final 02/24/25 20:56 Nasal Secretion MRSA (PCR) - Final 02/24/25 13:36 Mucosa - Nose SARS-CoV-2, Influenza & RSV (PCR) - Final ABG Data ABG results: ABG 03/05/25 05:44 Specimen Type ART Sample Site L Radial pH 7.43 Bicarbonate Actual 33.9 H Total CO2 36 Base Excess 10 H O2 Saturation 94 O2 % 35.0 ABG pCO2 50.9 H ABG pO2 70 L Issa Test Positive Respiration Rate 14 O2 Delivery Device Adult Vent Vent Mode AC Tidal Volume 400.0 POC PEEP 5 Rhythm Strip Rhythm Strip: Sinus Tach Physical Exam Const Constitutional Narrative: Intubated, sedated, RASS score is 0 HEENT normocephalic, head/scalp atraumatic, moist oral mucous membranes and oropharynx normal Eyes EOMs intact bilaterally Neck supple and no JVD Lymph Lymphatic: no lymphadenopathy noted Resp Resp Narrative: Patient intubated, sedated, RASS score is 0. moderately diminished breath sounds bibasally, no wheezes or crackles. Cardio regular rate, regular rhythm, S1 normal heart sound, S2 normal heart sound and no murmurs GI normal to inspection, nondistended, normoactive bowel sounds, soft to palpation and non-tender Extremity normal capillary refill and no clubbing, cyanosis or edema General Extremity: no tenderness to palpation of joints or extremities Skin General Skin Exam: no breakdown Neuro Neuro Narrative: intubated, sedated Motor Exam: general weakness Assessment & Plan Assessment/Plan (1) Multifocal pneumonia: (2) Acute on chronic respiratory failure with hypoxia and hypercapnia: PLAN: Plan #Acute on chronic hypoxic and hypercapnic respiratory failure due to COPD exacerbation, acute exacerbation of heart failure with preserved ejection fraction and atypical pneumonia Patient remains intubated and sedated. She has attempted self extubation during this admission and had to be intubated again. Pulmonology on board. Management as per critical care. On antibiotics and steroids. Also being diuresed with IV Lasix. Management as per critical care on IV vancomycin now. Sputum cultures growing corynebacterium. Sputum culture also growing presumptive Shakira albicans 2+. Will defer to critical care about initiating antifungals She is on a Precedex drip. #COPD exacerbation: As above #Atypical pneumonia: CT chest showed lateral interstitial thickening which was thought to be edema versus infection. On broad-spectrum antibiotics and management as above. #Severe hypokalemia: Resolved. Potassium is 3.9 today. #Nutrition: Patient currently on tube feeds. Has been having increased residuals as well as placed on Reglan also. Residuals today are around 150 cc. Will hold tube feeds for now and monitor. #Acute exacerbation of heart failure preserved ejection fraction: Has known EF of 70%. Being diuresed with IV Lasix. #Paroxysmal A-fib: On Eliquis which she has not been getting here, unclear why. Will resume #Severe aortic stenosis: Has been evaluated for TAVR at [facility] [place]. Will need follow-up once she is extubated clinically stable. #Depression with anxiety: On buspirone and Xanax down the feeding tube #Anemia: Monitor hemoglobin closely. Transfuse if Hb is less than 7 #DVT prophylaxis: resume eliquis today. On SCDs
--- NOTE | 2025-03-05 14:28 | EX.PCM.CON.G ---
HPI Consult Data Date of Consult: 03/05/25 HPI Narrative Reason for Consultation: PEG tube HPI Narrative: DENIA MARC, is a 69-year-old female patient who presented to the Emergency Department approximately one day after discharge from an [facility] with worsening shortness of breath and hypoxia. She had been on 3 L home oxygen, but her SpO2 was noted to be 84%. In the ED, despite escalation to a 12 L non-rebreather mask, her SpO2 only improved to 88%. ETCO2 was significantly elevated at 80 mmHg. She experienced extreme shortness of breath and altered mental status upon arrival. She was briefly trialed on BiPAP in the ED but required intubation due to respiratory distress and altered mentation. The patient has since remained intubated and has not been successfully weaned off mechanical ventilation. I was consulted for a PEG (percutaneous endoscopic gastrostomy) tube for supplemental feeding in anticipation of a potential future tracheostomy. [facility] Medical History Palliative care encounter Acute anemia Acute respiratory insufficiency Anxiety Anxiety and depression Respiratory insufficiency COPD with acute exacerbation Afib Aortic valve stenosis RLS (restless legs syndrome) History of ETOH abuse Chronic hypoxic respiratory failure, on home oxygen therapy COPD (chronic obstructive pulmonary disease) Anxiety Depression Smoker Asthma Hypertension Migraines Home Medications Medication Instructions Recorded Last Taken Type albuterol sulfate 90 mcg/actuation 1 - 2 puff inhalation Q4H PRN PRN 04/18/13 09/23/14 History aerosol inhaler (Ventolin HFA) Bronchodialation montelukast 10 mg tablet 10 mg PO DAILY allergies 04/18/13 09/23/14 History 10 MG tiotropium bromide 18 mcg capsule 1 puff inhalation DAILY wheezing 04/18/13 09/23/14 History with inhalation device (Spiriva with HandiHaler) Oxygen, Home [Home Oxygen] 2.5 lpm PRN PRN Dyspnea 10/22/13 09/23/14 History sertraline 100 mg tablet 100 mg PO BID mood 10/22/13 09/23/14 History Ropinirole Hcl 0.25 mg PO QHS restless legs 09/23/14 Unknown History ipratropium 0.5 mg-albuterol 3 mg 3 ml inhalation Q4HWA.RT wheezing 05/13/16 Unknown Rx (2.5 mg base)/3 mL nebulization ##30 soln cholecalciferol (vitamin D3) 50 50 mcg PO DAILY vitamin 10/18/23 Unknown History mcg (2,000 unit) capsule (Vitamin D3) ipratropium 0.5 mg-albuterol 3 mg 3 ml inhalation Q6H PRN shortness 10/18/23 Unknown Rx (2.5 mg base)/3 mL nebulization of breath or wheezing #180 mL soln buspirone 10 mg tablet 10 mg PO BID anxiety 10/02/24 Unknown History hydrocodone-acetaminophen 5-325mg 1 tab PO BID PRN PRN pain 10/03/24 Unknown History 5mg-325mg nicotine 14 mg/24 hr daily 14 mg transdermal DAILY prn #28 ea 10/09/24 Unknown Rx transdermal patch apixaban 5 mg tablet (Eliquis) 5 mg PO BID blood thinne #60 tabs 11/03/24 Unknown Rx carvedilol 6.25 mg tablet 6.25 mg PO BID bp #60 tabs 11/03/24 Unknown Rx furosemide 20 mg tablet 20 mg PO DAILY fluid overload 12/27/24 Unknown History pantoprazole 40 mg tablet,delayed 40 mg PO BID GERD #60 tabs 12/30/24 Unknown Rx release verapamil 180 mg 24 hr 180 mg PO BID #60 caps 12/30/24 Unknown Rx capsule,extended release OXYGEN - Supplemental ([facility] hypoxia 01/27/25 Unknown History INFORMATIONAL USE ONLY) alprazolam 0.25 mg tablet 0.25 mg PO Q6H PRN PRN Anxiety 3 01/31/25 Unknown Rx days #12 tabs potassium chloride 10 mEq 10 meq PO DAILYCM 30 days #0 tabs 01/31/25 Unknown Rx tablet,extended release(part/cryst) prednisone 20 mg tablet See Taper PO BREAKFAST #32 tabs 01/31/25 Unknown Rx bisacodyl 10 mg rectal suppository 10 mg MO ONCE 02/08/25 Unknown History cyanocobalamin (vitamin B-12) 500 500 mcg PO QDAY 02/08/25 Unknown History mcg tablet Allergy/AdvReac Type Severity Reaction Status Date / Time No Known Allergies Allergy Verified 02/12/25 08:52 Family History Mother Hypertension Throat cancer Father Hypertension Stomach cancer Surgical History H/O exploratory laparotomy History of lung surgery History of cholecystectomy Social History household members: significant other and none housing: apartment Smoking Status: Former smoker alcohol intake: former substance use type: does not use ROS ROS Narrative Patient intubated and sedated and unable to give history at this time. Physical Exam Const no apparent distress GI normal to inspection, nondistended, normoactive bowel sounds, soft to palpation, non-tender and non-distended Percussion: normal to percussion Rectal Exam: deferred Lab / Micro Data 03/05/25 04:20 03/05/25 04:20 Labs: Laboratory Results - last 24 hr 03/04/25 21:39: Vancomycin Trough 14.8 03/05/25 04:20: WBC 9.2, RBC 3.53 L, Hgb 8.4 L, Hct 26.8 L, MCV 75.9 L, MCH 23.8 L, MCHC 31.3 L, RDW Std Deviation 44.8 H, RDW Coeff of Augustin 16.3 H, Plt Count 439, MPV 9.9, Immature Gran % (Auto) 1.600 H, Neut % (Auto) 55.2, Lymph % (Auto) 21.3, [place] % (Auto) 12.1 H, Eos % (Auto) 9.5 H, Baso % (Auto) 0.3, Absolute Neuts (auto) 5.1, Absolute Lymphs (auto) 1.97, Nucleated RBC % 0, Sodium 138, Potassium 3.3, Chloride 100, Carbon Dioxide 29.6, Anion Gap 9, BUN 7, Creatinine 0.52 L, Estim Creat Clear Calc 63.64, Est GFR (MDRD) Non-Af 100, BUN/Creatinine Ratio 13.2, Glucose 138 H, Calcium 8.3 03/05/25 09:30: PT 15.7 H, INR 1.2, APTT 46.2 H ABG Data ABG results: ABG 03/05/25 05:44 Specimen Type ART Sample Site L Radial pH 7.43 Bicarbonate Actual 33.9 H Total CO2 36 Base Excess 10 H O2 Saturation 94 O2 % 35.0 ABG pCO2 50.9 H ABG pO2 70 L Issa Test Positive Respiration Rate 14 O2 Delivery Device Adult Vent Vent Mode AC Tidal Volume 400.0 POC PEEP 5 Rhythm Strip Rhythm Strip: Sinus Tach Assessment & Plan Assessment/Plan (1) S/P percutaneous endoscopic gastrostomy (PEG) tube placement: (2) Acute on chronic respiratory failure with hypoxia and hypercapnia: PLAN: Primary Problem: Acute hypercapnic and hypoxic respiratory failure likely secondary to underlying pulmonary or cardiac pathology (specific cause not detailed in the prompt), leading to the need for mechanical ventilation. Secondary Problem: Altered mental status secondary to hypoxemia/hypercapnia. Plan/Prognosis: The patient remains ventilator-dependent and has not been weaned. The need for long-term respiratory support is anticipated, leading to consideration of tracheostomy and permanent feeding support via PEG tube. Plan Respiratory: Continue mechanical ventilation. Management by hospitalist and geotechnical laboratory technician. PEG tube placement for long-term nutritional support. Surgery/ENT (Pending): Tracheostomy in the future. Charges/Coding Visit Charges Inpatient E&M: 54825 Init Hosp L3
[2025-03-05] MEDS: dexMEDEtomidine 1,000 MCG in 0.9% Normal Saline (250mL Bag) 240 ML 16 MCG CONT INF (15:13)
--- NOTE | 2025-03-05 16:02 | EKG12_ITS ---
Test Reason : prolonged qtc Blood Pressure : */* mmHG Vent. Rate : 96 BPM Atrial Rate : 96 BPM P-R Int : 162 ms QRS Dur : 80 ms QT Int : 404 ms P-R-T Axes : 84 40 87 degrees QTcB Int : 510 ms Sinus rhythm with Premature atrial complexes Prolonged QT Abnormal ECG When compared with ECG of 24-Feb-2025 13:16, Premature atrial complexes are now Present Nonspecific T wave abnormality now evident in Lateral leads Confirmed by Junito Madrid ([id number]), deputy editor in chief MAGALIE RAMRIEZ ([id number]) on 03/06/2025 12:45:12 PM Referred By: Ramierz Confirmed By: Junito Madrid
[2025-03-05] MEDS: Norepinephrine 8 MG in 0.9% Normal Saline (250mL Bag) 242 ML 20.6 MG CONT INF (17:09)
[2025-03-05] MEDS: Vital AF 1.2 Cal Liquid 1,000 ML 40 ML GT (17:14)
[2025-03-05] MEDS: 0.9% Saline Lock 10 ML Syringe IV (20:43)
[2025-03-06] VITALS (38 sets, daily range): BP systolic 87–168; BP diastolic 47–73; PULSE 87–108; RESP 14–17; TEMP 36.2–39; O2SAT 10–97; BMI 26.5
[2025-03-06] MEDS: fentaNYL drip 100 ML 17.5 MCG CONT INF ×4 (02:18→18:33)
[2025-03-06 03:26] LABS: Hematocrit 27.5 % (37-47); Hemoglobin 8.4 g/dL (12.0-15.0); Immature Granulocytes Count 0.210 X10^3/uL (0.0-0.0); Mean Corp Hgb Conc 30.5 g/dL (32-36); Mean Corpuscular Volume 76.8 fL (81-99); Mean Platelet Vol. 10.1 fl (6.2-12.0); NRBC Flagged by Analyzer 0 % (0-5); Platelet Count 468 K/mm3 (150-450); RBC Distribution Width CV 16.3 % (11.6-14.6); RBC Distribution Width SD 45.8 fl (35.1-43.9); Red Blood Count 3.58 M/mm3 (4.2-5.4); White Blood Count 10.8 K/mm3 (4.4-11.0)
[2025-03-06 04:02] LABS: Anion Gap 10 (5-15); BUN 10 mg/dL (4-19); BUN/Creat Ratio 21.5 RATIO (10-20); Calcium,Total 8.2 mg/dL (7.6-11.0); Carbon Dioxide 30.6 mmol/L (21.0-32.0); Chloride 99 mmol/L (98-108); Estimated Creatinine Clearance 63.81 ml/min (50-250); Glucose 147 mg/dL (70-99); Potassium 2.8 mmol/L (3.3-5.1)
[2025-03-06] MEDS: 0.9% Saline Lock 10 ML Syringe IV ×3 (04:02→21:15)
[2025-03-06] MEDS: Norepinephrine 8 MG in 0.9% Normal Saline (250mL Bag) 242 ML 20.6 MG CONT INF ×2 (05:51→17:38)
[2025-03-06] MEDS: Propofol 10MG/Ml 1,000 MG/100 ML Bottle 8.5 MG CONT INF ×2 (06:36→16:10)
--- NOTE | 2025-03-06 07:21 | PN.CC_ITS ---
Assessment & Plan Assessment/Plan (1) Acute on chronic respiratory failure with hypoxia and hypercapnia: PLAN: Plan RECOMMENDATIONS: 1. Continue assist-control mode of mechanical ventilation. Continue to wean FiO2 and PEEP as tolerated. 2. Given failed extubation and inability to wean from vent, recommend proceeding with tracheostomy and PEG tube placement. 3. Continue antimicrobials to complete treatment course. 4. Continue scheduled bronchodilators. 5. Continue to hold Eliquis. 6. Continue Levophed to maintain a mean arterial pressure at or above 65 mmHg. 7. Continue tube feeding for nutritional support. 8. Continue appropriate GI prophylaxis. 9. LTACH disposition planning. IMPRESSIONS: 1. Acute on chronic combined respiratory failure Unclear if this was truly precipitated by the patient's COPD with concurrent panic attacks versus sequelae of her valvular heart disease. Her presentation was once again similar to that encountered in January 2025. Her chest imaging on this admission is not overtly concerning for underlying pneumonia. However, in light of her decompensated status, will treat with antimicrobials x 7 days. The patient does have a known extensive tobacco abuse history with questionable COPD. She has not followed on an outpatient basis by a garbage pick up worker. Given the patient's failed attempt at extubation coupled with her inability to be weaned from invasive mechanical ventilatory support, recommend proceeding with tracheostomy and PEG tube placement. ENT and gastroenterology have been consulted. Continue to hold Eliquis. 2. History of aortic valve stenosis/atrial fibrillation The patient needs to continue her outpatient workup and follow-up for possible TAVR. The patient has been maintained on Eliquis as an outpatient. However, due to her presenting anemia and need for tracheostomy and PEG tube, recommend continuing to hold Eliquis. 3. History of restless leg syndrome/anxiety/depression/former tobacco dependency/history of non-small cell lung cancer status post right lobectomy Complicates care, management, recovery and prognosis. Continue supportive measures as noted above. Continue tube feeding for nutritional support. TIME: 34 minutes of critical care time, independent of procedures, was spent addressing the patient's acute on chronic combined respiratory failure, aortic valve stenosis, atrial fibrillation, anemia, review of all data and collaboration with care team. Subjective Subjective The patient was seen and examined at the bedside this morning. Events from the last 24 hours have been reviewed. The patient javid on assist-control mode of mechanical ventilation with an FiO2 requirement of 30% and PEEP of 5. Levophed has been continued at 10 mcg/min. White blood cell count is normal. Hemoglobin and platelet count are stable. Potassium is low at 2.8. Creatinine is within normal limits. There are tentative plans to proceed with tracheostomy placement later today. Objective Data Objective Data The patient's most recent lab work, culture data and imaging studies have all been personally reviewed. Surface echocardiogram last completed on January 26 demonstrated an ejection fraction of 70%. Sputum culture dated February 27 was positive for presumptive Shakira albicans. Vital Signs: Vital Signs Temp Pulse Resp BP Pulse Ox O2 Del Method O2 Flow Rate 101.9 F H 94 14 115/47 L 93 Mechanical Ventilator 35 03/06/25 07:00 03/06/25 07:00 03/06/25 07:00 03/06/25 07:00 03/06/25 07:00 03/06/25 07:00 02/28/25 18:00 FiO2 30 03/06/25 07:00 Oxygen Flow Rate (L/min) 35 Oxygen Delivery Method Mechanical Ventilator Weight: 154 lb 12.232 oz Body Mass Index (BMI) 26.5 Intake & Output: Intake and Output for Last 24 Hours 03/04/25 03/05/25 03/06/25 23:59 23:59 23:59 Intake Total 2701.57 / 2858.42 3586.52 / 3967.99 1244.73 / 1244.73 Output Total 3550 / 3825 3825 / 3825 250 / 250 Balance -848.43 / -966.58 -238.48 / 142.99 994.73 / 994.73 Lab / Micro Data Attestation: I reviewed the patient's lab results. 03/06/25 03:16 03/06/25 03:16 Labs: Laboratory Results - last 24 hr 03/05/25 09:30: PT 15.7 H, INR 1.2, APTT 46.2 H 03/06/25 03:16: WBC 10.8, RBC 3.58 L, Hgb 8.4 L, Hct 27.5 L, MCV 76.8 L, MCH 23.5 L, MCHC 30.5 L, RDW Std Deviation 45.8 H, RDW Coeff of Augustin 16.3 H, Plt Count 468 H, MPV 10.1, Immature Gran % (Auto) 1.900 H, Neut % (Auto) 59.4, Lymph % (Auto) 19.6, [place] % (Auto) 9.8, Eos % (Auto) 8.7 H, Baso % (Auto) 0.6, Absolute Neuts (auto) 6.5, Absolute Lymphs (auto) 2.12, Nucleated RBC % 0, Sodium 139, Potassium 2.8 L, Chloride 99, Carbon Dioxide 30.6, Anion Gap 10, BUN 10, Creatinine 0.48 L, Estim Creat Clear Calc 63.81, Est GFR (MDRD) Non-Af 102, BUN/Creatinine Ratio 21.5 H, Glucose 147 H, Calcium 8.2 Micro: Microbiology 02/27/25 15:51 Sputum, Induced/Lukens Gram Stain - Final 02/27/25 15:51 Sputum, Induced/Lukens Respiratory Culture - Final Presumptive C albicans 02/24/25 13:30 Blood Culture (Wb) - Anticubital Left Blood Culture - Final No growth in 5 days. 02/24/25 13:14 Blood Culture (Wb) - Anticubital Right Blood Culture - Final No growth in 5 days. 02/24/25 22:21 Sputum, Induced/Lukens Gram Stain - Final 02/24/25 22:21 Sputum, Induced/Lukens Respiratory Culture - Final Corynebacterium striatum 02/27/25 02:50 Stool Stool Occult Blood (MODE) - Final Occult Blood Positive 02/24/25 21:10 Mucosa - Nasopharyngeal Respiratory Panel (PCR) - Final 02/24/25 22:08 Urine Catheter - Alvarenga Legionella Antigen - Final 02/24/25 22:08 Urine Catheter - Alvarenga Streptococcus pneumoniae Antigen (M - Final 02/24/25 20:56 Nasal Secretion MRSA (PCR) - Final 02/24/25 13:36 Mucosa - Nose SARS-CoV-2, Influenza & RSV (PCR) - Final ABG Data ABG results: ABG 03/05/25 05:44 Specimen Type ART Sample Site L Radial pH 7.43 Bicarbonate Actual 33.9 H Total CO2 36 Base Excess 10 H O2 Saturation 94 O2 % 35.0 ABG pCO2 50.9 H ABG pO2 70 L Issa Test Positive Respiration Rate 14 O2 Delivery Device Adult Vent Vent Mode AC Tidal Volume 400.0 POC PEEP 5 Radiography Diagnostic Testing: Radiology Impression Chest X-Ray 02/26/25 14:55 IMPRESSION: The tip of the endotracheal tube is at 3.4 cm proximal the kaylan. Improved aeration of both lungs with mild degree of residual linear markings at the lung bases and right upper lobe. Reading Location: [facility] Rhythm Strip Rhythm Strip: Sinus Tach Physical Exam Const Constitutional Narrative: Intubated, sedated and mechanically ventilated. General Appearance: lethargic and patient mechanically ventilated HEENT normocephalic and head/scalp atraumatic Mouth: endotracheal tube in place and OG tube in place Eyes PERRL, conjunctivae normal and no scleral icterus Neck supple General: trachea midline Chest inspection of chest normal Resp normal respiratory effort Auscultation: diminished lung sounds; Negative for rales, rhonchi or wheezes Cardio regular rate, S1 normal heart sound and S2 normal heart sound Heart Sounds: murmur GI soft to palpation and non-tender Extremity General Extremity: edema; Negative for clubbing Skin no rashes or lesions noted Neuro Sensorium / Orientation: sedated on vent Charges/Coding Procedures Hospitalists Procedures: 35485 Critical Care 1st Hr
[2025-03-06] MEDS: Potassium Chloride 10mEq/100mL 10 MEQ/100 ML IV.SOLN. 100 MEQ IV BOLUS ×4 (08:17→11:34)
[2025-03-06] MEDS: dexMEDEtomidine 1,000 MCG in 0.9% Normal Saline (250mL Bag) 240 ML 14.2 MCG CONT INF (08:27)
[2025-03-06] MEDS: Polyethylene Glycol 3350 17 GM PACKET PO (08:28)
[2025-03-06] MEDS: Senna/Docusate Sodium 1 Tablet 2 TABLET GT (08:28)
[2025-03-06] MEDS: Chlorhexidine 15 ML PO ×2 (08:34→21:07)
--- NOTE | 2025-03-06 08:35 | CASEMGMT ---
[facility] states that they can accept. [facility] states that they reached out to the patient's insurance ([employer]) and reports that the insurance recommends 3 weaning trials after trach placement, but requires at least 24 hours of stability after receiving the trach before precert can be started. CM will update the medical team during ICU Rounds.
[2025-03-06] MEDS: CHLORHEXIDINE GLUC 2% CLOTH 1 EACH TOWELETTE TOPICAL (09:33)
--- NOTE | 2025-03-06 09:55 | CASEMGMT ---
Per ICU rounds, PEG placement is TBD as the GI doctor has not been able to obtain consent from the son. Pt's RN reports that the pt has plans for trach placement today around 1600. [facility] updated and states that they will likely come into the hospital on to assist with disposition planning. Book Agent notified. Updated notes and clinicals sent to [facility]. CM to continue to follow.
[2025-03-06] MEDS: Pantoprazole Sodium 40 MG in 0.9% Normal Saline (100mL MB+) 100 ML 300 MG IV (10:01)
[2025-03-06 10:48] LABS: Vancomycin, Trough Level 20.1 ug/mL (5.0-15.0)
--- NOTE | 2025-03-06 10:54 | PN_ITS ---
Subjective Subjective Patient seen and examined. She remains intubated and sedated. Unable to do review of systems. RASS score is -4 Objective Data Objective Data Vital Signs: Vital Signs Temp Pulse Resp BP Pulse Ox O2 Del Method O2 Flow Rate 102.2 F H 93 14 112/59 L 94 Mechanical Ventilator 35 03/06/25 09:00 03/06/25 09:00 03/06/25 09:00 03/06/25 09:00 03/06/25 09:00 03/06/25 09:00 02/28/25 18:00 FiO2 30 03/06/25 09:00 Oxygen Flow Rate (L/min) 35 Oxygen Delivery Method Mechanical Ventilator Weight: 154 lb 12.232 oz Body Mass Index (BMI) 26.5 Intake & Output: Intake and Output for Last 24 Hours 03/04/25 03/05/25 03/06/25 23:59 23:59 23:59 Intake Total 2701.57 / 2858.42 3586.52 / 3967.99 1600.14 / 1600.14 Output Total 3550 / 3825 3825 / 3825 250 / 250 Balance -848.43 / -966.58 -238.48 / 142.99 1350.14 / 1350.14 Lab / Micro Data 03/06/25 03:16 03/06/25 03:16 Labs: Laboratory Results - last 24 hr 03/06/25 03:16: WBC 10.8, RBC 3.58 L, Hgb 8.4 L, Hct 27.5 L, MCV 76.8 L, MCH 23.5 L, MCHC 30.5 L, RDW Std Deviation 45.8 H, RDW Coeff of Augustin 16.3 H, Plt Count 468 H, MPV 10.1, Immature Gran % (Auto) 1.900 H, Neut % (Auto) 59.4, Lymph % (Auto) 19.6, [place] % (Auto) 9.8, Eos % (Auto) 8.7 H, Baso % (Auto) 0.6, Absolute Neuts (auto) 6.5, Absolute Lymphs (auto) 2.12, Nucleated RBC % 0, Sodium 139, Potassium 2.8 L, Chloride 99, Carbon Dioxide 30.6, Anion Gap 10, BUN 10, Creatinine 0.48 L, Estim Creat Clear Calc 63.81, Est GFR (MDRD) Non-Af 102, BUN/Creatinine Ratio 21.5 H, Glucose 147 H, Calcium 8.2 03/06/25 09:57: Vancomycin Trough 20.1 H Micro: Microbiology 02/27/25 15:51 Sputum, Induced/Lukens Gram Stain - Final 02/27/25 15:51 Sputum, Induced/Lukens Respiratory Culture - Final Presumptive C albicans 02/24/25 13:30 Blood Culture (Wb) - Anticubital Left Blood Culture - Final No growth in 5 days. 02/24/25 13:14 Blood Culture (Wb) - Anticubital Right Blood Culture - Final No growth in 5 days. 02/24/25 22:21 Sputum, Induced/Lukens Gram Stain - Final 02/24/25 22:21 Sputum, Induced/Lukens Respiratory Culture - Final Corynebacterium striatum 02/27/25 02:50 Stool Stool Occult Blood (MODE) - Final Occult Blood Positive 02/24/25 21:10 Mucosa - Nasopharyngeal Respiratory Panel (PCR) - Final 02/24/25 22:08 Urine Catheter - Al[place]ga Legionella Antigen - Final 02/24/25 22:08 Urine Catheter - Al[place]ga Streptococcus pneumoniae Antigen (M - Final 02/24/25 20:56 Nasal Secretion MRSA (PCR) - Final 02/24/25 13:36 Mucosa - Nose SARS-CoV-2, Influenza & RSV (PCR) - Final Rhythm Strip Rhythm Strip: Sinus Tach Physical Exam Const Constitutional Narrative: Intubated, sedated, RASS score is -4 HEENT normocephalic, head/scalp atraumatic, moist oral mucous membranes and oropharynx normal Eyes EOMs intact bilaterally Neck supple and no JVD Lymph Lymphatic: no lymphadenopathy noted Resp Resp Narrative: Patient intubated, sedated, RASS score is -4 today. moderately diminished breath sounds bibasally, no wheezes or crackles. Cardio regular rate, regular rhythm, S1 normal heart sound, S2 normal heart sound and no murmurs GI normal to inspection, nondistended, normoactive bowel sounds, soft to palpation and non-tender Extremity normal capillary refill and no clubbing, cyanosis or edema General Extremity: no tenderness to palpation of joints or extremities Skin General Skin Exam: no breakdown Neuro Neuro Narrative: intubated, sedated Motor Exam: general weakness Assessment & Plan Assessment/Plan (1) Multifocal pneumonia: (2) Acute on chronic respiratory failure with hypoxia and hypercapnia: PLAN: Plan #Acute on chronic hypoxic and hypercapnic respiratory failure due to COPD exacerbation, acute exacerbation of heart failure with preserved ejection fraction and atypical pneumonia * Patient remains intubated and sedated. She has attempted self extubation during this admission and had to be intubated again. * Pulmonology on board. Management as per critical care. On antibiotics and steroids. Also being diuresed with IV Lasix. * Management as per critical care * on IV vancomycin now. Sputum cultures growing corynebacterium. * Sputum culture also growing presumptive Shakira albicans 2+. Will defer to critical care about initiating antifungals * She is on a Precedex drip. * ENT and GI consulted for trach and PEG. For trach today. #COPD exacerbation: As above #Atypical pneumonia: CT chest showed lateral interstitial thickening which was thought to be edema versus infection. On broad-spectrum antibiotics and management as above. #Severe hypokalemia: Potassium is 2.8 today. Will replace and aggressively trend. #Nutrition: Patient currently on tube feeds. on reglan prn to help with residuals #Acute exacerbation of heart failure preserved ejection fraction: Has known EF of 70%. Being diuresed with IV Lasix. #Paroxysmal A-fib: On Eliquis which she has not been getting here, unclear why. Will resume #Severe aortic stenosis: Has been evaluated for T[facility]R at [facility]. Will need follow-up once she is extubated clinically stable. #Depression with anxiety: On buspirone and Xanax down the feeding tube #Anemia: Monitor hemoglobin closely. Transfuse if Hb is less than 7 #DVT prophylaxis: eliquis on hold pending trach and PEG. SCDs Disposition: Being evaluated for LTAC. LTAC staff will see tomorrow and hopefully by the end of the week he will be transferred to LTAC. Charges/Coding Visit Charges Inpatient E&M: 76441 Subs Hosp L3
--- NOTE | 2025-03-06 10:59 | PCM.RX.CS ---
Consult Antibiotic Management Pharmacy has been consulted to manage selected antibiotic: Vancomycin Type of Intervention Type of Consult: Follow-up Suspected Infection Suspected Infection: Pneumonia Prior Doses of Antibiotics Prior Doses of Antibiotics Received/Current Regimen: Vancomycin 1250 mg Q12H last dose given 03/05/25 @ 2216 Labs Labs: Sodium 139 mmol/L (133-145) 03/06/25 03:16 Potassium 2.8 mmol/L (3.3-5.1) L 03/06/25 03:16 Chloride 99 mmol/L (98-108) 03/06/25 03:16 Carbon Dioxide 30.6 mmol/L (21.0-32.0) 03/06/25 03:16 Anion Gap 10 (5-15) 03/06/25 03:16 BUN 10 mg/dL (4-19) 03/06/25 03:16 Creatinine 0.48 mg/dL (0.70-1.20) L 03/06/25 03:16 Est GFR (MDRD) Non-Af 102 (>60) 03/06/25 03:16 BUN/Creatinine Ratio 21.5 RATIO (10-20) H 03/06/25 03:16 Glucose 147 mg/dL (70-99) H 03/06/25 03:16 Vancomycin Trough 20.1 ug/mL (5.0-15.0) H 03/06/25 09:57 Microbiology Microbiology: Microbiology 02/27/25 15:51 Sputum, Induced/Lukens Gram Stain - Final 02/27/25 15:51 Sputum, Induced/Lukens Respiratory Culture - Final Presumptive C albicans 02/24/25 13:30 Blood Culture (Wb) - Anticubital Left Blood Culture - Final No growth in 5 days. 02/24/25 13:14 Blood Culture (Wb) - Anticubital Right Blood Culture - Final No growth in 5 days. 02/24/25 22:21 Sputum, Induced/Lukens Gram Stain - Final 02/24/25 22:21 Sputum, Induced/Lukens Respiratory Culture - Final Corynebacterium striatum 02/27/25 02:50 Stool Stool Occult Blood (MODE) - Final Occult Blood Positive 02/24/25 21:10 Mucosa - Nasopharyngeal Respiratory Panel (PCR) - Final 02/24/25 22:08 Urine Catheter - Alvarenga Legionella Antigen - Final 02/24/25 22:08 Urine Catheter - Al[place]renga Streptococcus pneumoniae Antigen (M - Final 02/24/25 20:56 Nasal Secretion MRSA (PCR) - Final 02/24/25 13:36 Mucosa - Nose SARS-CoV-2, Influenza & RSV (PCR) - Final Dosing Weight Weight used for dosin.2 kg Estimated Creatinine Clearance Estimated Creatinine Clearance: ~ 64 Goal Trough Goal Trough: 15-20 mcg/mL Pharmacy Plan for Drug Dosing Pharmacy Plan for Drug Dosing: Vancomycin trough = 20.1, will decrease dose slightly to 1000 mg Q12H, no ordered trough as vancomycin ends after tomorrow's doses Pharmacy Service will continue to monitor and adjust dosing as required.
[2025-03-06] MEDS: Vancomycin HCl 1,000 MG in 0.9% Normal Saline (250mL Bag) 250 ML 250 MG IV ×2 (13:00→22:05)
--- NOTE | 2025-03-06 15:02 | PCM.CONS.GEN ---
Assessment & Plan Assessment/Plan (1) Acute on chronic respiratory failure with hypoxia and hypercapnia: PLAN: 69 year old female with respiratory failure -will plan on tracheostomy today PLAN: Plan 69 year old female with respiratory failure -will plan on tracheostomy today HPI Consult Data Date of Consult: 03/06/25 HPI Narrative Reason for Consultation: respiratory failure HPI Narrative: DENIA MARC, is a 69 F who presents with respiratory failure / failure to extubate secondary to presumed COPD exascerbation +/- atypical pneumonia. Very anxious per staff and has failed extubation trials. [facility] Medical History Palliative care encounter Acute anemia Acute respiratory insufficiency Anxiety Anxiety and depression Respiratory insufficiency COPD with acute exacerbation Afib Aortic valve stenosis RLS (restless legs syndrome) History of ETOH abuse Chronic hypoxic respiratory failure, on home oxygen therapy COPD (chronic obstructive pulmonary disease) Anxiety Depression Smoker Asthma Hypertension Migraines Home Medications Medication Instructions Recorded Last Taken Type albuterol sulfate 90 mcg/actuation 1 - 2 puff inhalation Q4H PRN PRN 04/18/13 09/23/14 History aerosol inhaler (Ventolin HFA) Bronchodialation montelukast 10 mg tablet 10 mg PO DAILY allergies 04/18/13 09/23/14 History 10 MG tiotropium bromide 18 mcg capsule 1 puff inhalation DAILY wheezing 04/18/13 09/23/14 History with inhalation device (Spiriva with HandiHaler) Oxygen, Home [Home Oxygen] 2.5 lpm PRN PRN Dyspnea 10/22/13 09/23/14 History sertraline 100 mg tablet 100 mg PO BID mood 10/22/13 09/23/14 History Ropinirole Hcl 0.25 mg PO QHS restless legs 09/23/14 Unknown History ipratropium 0.5 mg-albuterol 3 mg 3 ml inhalation Q4HWA.RT wheezing 05/13/16 Unknown Rx (2.5 mg base)/3 mL nebulization ##30 soln cholecalciferol (vitamin D3) 50 50 mcg PO DAILY vitamin 10/18/23 Unknown History mcg (2,000 unit) capsule (Vitamin D3) ipratropium 0.5 mg-albuterol 3 mg 3 ml inhalation Q6H PRN shortness 10/18/23 Unknown Rx (2.5 mg base)/3 mL nebulization of breath or wheezing #180 mL soln buspirone 10 mg tablet 10 mg PO BID anxiety 10/02/24 Unknown History hydrocodone-acetaminophen 5-325mg 1 tab PO BID PRN PRN pain 10/03/24 Unknown History 5mg-325mg nicotine 14 mg/24 hr daily 14 mg transdermal DAILY prn #28 ea 10/09/24 Unknown Rx transdermal patch apixaban 5 mg tablet (Eliquis) 5 mg PO BID blood thinne #60 tabs 11/03/24 Unknown Rx carvedilol 6.25 mg tablet 6.25 mg PO BID bp #60 tabs 11/03/24 Unknown Rx furosemide 20 mg tablet 20 mg PO DAILY fluid overload 12/27/24 Unknown History pantoprazole 40 mg tablet,delayed 40 mg PO BID GERD #60 tabs 12/30/24 Unknown Rx release verapamil 180 mg 24 hr 180 mg PO BID #60 caps 12/30/24 Unknown Rx capsule,extended release OXYGEN - Supplemental ([facility] hypoxia 01/27/25 Unknown History INFORMATIONAL USE ONLY) alprazolam 0.25 mg tablet 0.25 mg PO Q6H PRN PRN Anxiety 3 01/31/25 Unknown Rx days #12 tabs potassium chloride 10 mEq 10 meq PO DAILYCM 30 days #0 tabs 01/31/25 Unknown Rx tablet,extended release(part/cryst) prednisone 20 mg tablet See Taper PO BREAKFAST #32 tabs 01/31/25 Unknown Rx bisacodyl 10 mg rectal suppository 10 mg AL ONCE 02/08/25 Unknown History cyanocobalamin (vitamin B-12) 500 500 mcg PO QDAY 02/08/25 Unknown History mcg tablet Allergy/AdvReac Type Severity Reaction Status Date / Time No Known Allergies Allergy Verified 02/12/25 08:52 Family History Mother Hypertension Throat cancer Father Hypertension Stomach cancer Surgical History H/O exploratory laparotomy History of lung surgery History of cholecystectomy Social History household members: significant other and none housing: apartment Smoking Status: Former smoker alcohol intake: former substance use type: does not use Physical Exam Const Constitutional Narrative: intubated/sedated HEENT HEENT Narrative: neck landmarks palpated. no masses Nose: external nose normal and nasal mucous membranes and turbinates normal External Ear: external ears normal External Auditory Canal: EAC's normal Mouth: oral and palatal mucosa normal Lab / Micro Data 03/06/25 03:16 03/06/25 03:16 Labs: Laboratory Results - last 24 hr 03/06/25 03:16: WBC 10.8, RBC 3.58 L, Hgb 8.4 L, Hct 27.5 L, MCV 76.8 L, MCH 23.5 L, MCHC 30.5 L, RDW Std Deviation 45.8 H, RDW Coeff of Augustin 16.3 H, Plt Count 468 H, MPV 10.1, Immature Gran % (Auto) 1.900 H, Neut % (Auto) 59.4, Lymph % (Auto) 19.6, [place] % (Auto) 9.8, Eos % (Auto) 8.7 H, Baso % (Auto) 0.6, Absolute Neuts (auto) 6.5, Absolute Lymphs (auto) 2.12, Nucleated RBC % 0, Sodium 139, Potassium 2.8 L, Chloride 99, Carbon Dioxide 30.6, Anion Gap 10, BUN 10, Creatinine 0.48 L, Estim Creat Clear Calc 63.81, Est GFR (MDRD) Non-Af 102, BUN/Creatinine Ratio 21.5 H, Glucose 147 H, Calcium 8.2 03/06/25 09:57: Vancomycin Trough 20.1 H Rhythm Strip Rhythm Strip: Sinus Tach
--- NOTE | 2025-03-06 15:56 | PCM.OPRPT ---
Operative Report (Standard) Operative Information Date of Procedure: 03/06/25 Pre-Operative Diagnosis: respiratory failure Post-Operative Diagnosis: respiratory failure Surgery/Procedure Performed: tracheostomy placement with kemal flap service center technician: Yes Boat Driver: Chaitanya Brady Tasks completed by elder assistant: Opening, Closing, Opening & closing, Dissecting tissue, Removing tissue, Hemostasis: Clamp, Hemostasis: Tie and Hemostasis: Electrocautery Type of Anesthesia: General RN Documented Start/Stop Times: Operation Date: 03/06/25 16:00 <No data on this case meets the specified criteria> Procedure Start Time: 04:30 Procedure Stop Time: 17:13 Select all DRAINS/GRAFTS/IMPLANTS that apply: None Estimated Blood Loss: 3cc Specimen collected: No Description of surgery: on the day of the procedure, after appropriate informed consent was obtained, the patient was brought to the OR from the ICU. she was intubated and sedated. she was transferred to the operative table. a shoulder roll was placed. a 2cm incision in the transverse low neck was injected with lidocaine/epinephrine. the neck was prepped and draped in sterile fashion. a 2cm incision was made in the aforementioned area with a 15 blade. a lipectomy was performed with an allis and the bovie. the infrahyoid strap muscles were divided along the midline raphe and retracted laterally. the trachea was exposed with [employer] retractors. a cricoid hook was placed. the pretracheal fascia was incised and the trachea proper was exposed. the thyroid isthsmus was retracted superiorly. the endotracheal tube was retracted slightly. an incision was made in the trachea between rings 2 and 3. a kemal flap was created with curved heavy epps scissor. this was sutured to the overlying skin with a 2-0 ethibond suture. the endotracheal tube was removed and a 6 cuffed shiley tracheostomy tube was placed. this was secured with 3-0 silk suture and a phill collar. placement was confirmed with end tidal CO2. she was transferred to the ICU in stable condition. chaitanya brady was scrubbed the entire time and critical for its completion. Surgical Findings: n/a Complications Complications: No
--- NOTE | 2025-03-06 16:07 | PCM.PRE.AN2 ---
ASA Classification* ASA Classification ASA Classification: 4 Assessment & Plan Anesthesia* Anesthesia Assessment Anesthesia Assessment: Discussed sedation and/or anesthesia options, risks, benefits, and alternatives with patient/parents/legal guardian/POA. Questions invited. The patient/parents/legal guardian/POA seems to understand and agrees to proceed with anesthesia plan. Reviewed the physical assessment, medical history, allergy history and patient home medications list prior to surgery/procedure/anesthetic and documented any changes. Performed airway and anesthesia risk assessments. I spoke with the patient's son on the phone, in the presence of ICU Nursing team and CRNAs David and Bing Amado. Patient's son verbalized understanding and gave informed consent for anesthesia. Anesthesia Type Anesthesia Type: General History Source History Obtained from:: Patient, Chart and Parent/ Guardian (son) Anesthesia Focused Assessment* Temperature: 100.2 F Pulse Rate: 96 Blood Pressure: 119/67 Respiratory Rate: 14 Pulse Ox: 95 Oxygen Delivery Method: Room Air Oxygen Flow Rate (L/min): 35 Fraction of Inspired Oxygen (FIO2): 30 Airway Assessment Mouth opens: 2 cm Mallampati Score: IV Neck Range of motion (ROM): Full ROM Comment: Intubated & sedated in ICU Labs Anesthesia Preop lab: CBC WBC, (4.4-11.0) 10.8 K/mm3 Today, 03:16 RBC, (4.2-5.4) 3.58 M/mm3 L Today, 03:16 Hgb, (12.0-15.0) 8.4 g/dL L Today, 03:16 Hct, (37-47) 27.5 % L Today, 03:16 Plt Count, (150-450) 468 K/mm3 H Today, 03:16 CHEMISTRY Potassium, (3.3-5.1) 2.8 mmol/L L Today, 03:16 Sodium, (133-145) 139 mmol/L Today, 03:16 Magnesium, (1.5-2.2) 1.7 mg/dL 03/02/25, 06:10 Phosphorus, (2.7-4.5) 3.3 mg/dL 02/27/25, 04:28 BUN, (4-19) 10 mg/dL Today, 03:16 Creatinine, (0.70-1.20) 0.48 mg/dL L Today, 03:16 Glucose, (70-99) 147 mg/dL H Today, 03:16 TSH, (0.300-4.200) 0.118 uIU/mL L 02/25/25, 05:47 COAG PT, (11.7-14.9) 15.7 SECONDS H 03/05/25, 09:30 Pre-Assessment Diagnosis/Proposed Procedure Planned Operative Procedure(s): Tracheostomy Anesthesia History Anesthesia History - senior training and development rep: Anesthesia History - senior training and development rep Hx Hospitalization No 05/05/20 07:54 Any Problems With Anesthesia No 12/27/24 20:12 Cholinesterase deficiency No 12/27/24 20:12 You/Your Family Experience No 12/27/24 20:12 fever (hyperthermia) with Relationship Recent Exposure to Contagious No 12/27/24 20:12 Disease Does patient have nerve No 12/27/24 20:12 stimulator Patient instructed to have device shut off --Does patient have Pacemaker or ICD? When Was Last Pacemaker Check QUESTION #4 FULL TEXT: You/Your Family Experience fever (hyperthermia) with Anesthesia Last Oral Intake Last Oral intake: Last Oral Intake NPO since Meds taken in AM with sips of water? Meds patient instructed to take am of surgery PONV PONV - senior training and development rep: PONV - senior training and development rep Female HX of Motion Sickness HX of N/V After Surgery Non-Smoker Duration of Surgery greater than 60 minutes Number of Risk Factors PONV Score Height & Weight Height & Weight: Anesthesia: Height & Weight Height 5 ft 4 in 03/06/25 10:36 Weight: 70.2 kg 03/06/25 10:36 Body Mass Index (BMI) 26.5 03/06/25 03:09 Respiratory Assessment Respiratory Assessment - senior training and development rep: Respiratory Tract Infection Hx - senior training and development rep Hx Respiratory Tract Infection No 12/27/24 20:12 STOP Sleep Apnea STOP Sleep Apnea - senior training and development rep: STOP Sleep Apnea - senior training and development rep Hx Hypertension Yes 03/06/25 09:31 Hx Sleep Apnea No 02/24/25 20:40 CPAP No 12/26/24 21:29 BIPAP No 12/26/24 21:29 Do you snore loudly (louder No 02/24/25 20:40 than talking or can be heard Do you often feel tired/ No 02/24/25 20:40 fatigued/ sleepy during daytime? Has anyone observed you stop No 02/24/25 20:40 breathing during sleep? STOP Results Negative 02/24/25 20:40 QUESTION #5 FULL TEXT : Do you snore loudly (louder than talking or can be heard through closed doors)? Tobacco Use History Tobacco Use History - senior training and development rep: Tobacco Use History - senior training and development rep Tobacco Use Cigarettes 07/20/23 02:52 Smoking Status Former smoker 02/26/25 09:25 Hx Tobacco Use Yes 02/24/25 20:40 Years Smoking Packs Smoked per Day Smoking Cessation Date was Yes - quit smoking within 15 02/24/25 20:40 within the last 15 years years Hx Smoking Cessation Date 09/22/24 02/24/25 20:40 Hx Smoking Cessation No 02/24/25 20:40 Counseling Hematologic Medial History Hematologic Hx - senior training and development rep: Hematologic Medical Hx - supervisor blood Hx of Blood Transfusion No 02/24/25 20:40 Hx of Transfusion in last 3 No 02/24/25 20:40 Months Date of Last Transfusion (if within last 3 months) Ever experience any problems No 02/24/25 20:40 with transfusion(s)? Specify any problems Hx of Preganancy in last 3 N/A 02/24/25 20:40 Months Nurse Filling Out Transfusion TDEVEREAU 02/24/25 20:40 & Questions: Date: 02/24/25 02/24/25 20:40 Time: 20:52 02/24/25 20:40 Patient unable to answer at this time (ie. confused, unrespo /Reproduction History /Reproductive History - senior training and development rep: /Reproductive Hx- senior training and development rep Hx Now Gestational Age (in weeks): EDC: Hx Hx Para Hx Section SAB No 12/27/24 20:12 Does the father of the baby or his family experience fever w Father of the baby Malignant Hypertension history comment Active Medications Active Medications: Current Medications Generic Name Dose Route Start Last Admin Trade Name Freq PRN Reason Stop Dose Admin Acetaminophen 1,000 mg 02/25/25 08:56 03/05/25 12:56 Acetaminophen 650 Mg/20 Ml Udc NG 1,000 mg Q8H PRN Administration FEVER Albuterol/Ipratropium 3 ml 02/24/25 20:22 03/06/25 15:25 Ipratropium/Albuterol Sulfate 3 Ml Ampul.Neb INHALATION 3 ml Q4H.RT HINA Administration Alprazolam 0.5 mg 02/28/25 14:00 03/06/25 14:25 Alprazolam 0.5 Mg Tablet PO 0.5 mg TID HINA Administration Bisacodyl 10 mg 02/25/25 09:29 Bisacodyl 10 Mg Suppository RC DAILY PRN constipation Buspirone HCl 10 mg 02/28/25 14:00 03/06/25 14:22 Buspirone 5 Mg Tablet PO 10 mg TID HINA Administration Carvedilol 3.125 mg 02/25/25 17:00 03/06/25 08:21 Carvedilol 3.125 Mg Tablet GT Not Given BIDCM [facility] Protocol Chlorhexidine Gluconate 15 ml 02/25/25 10:00 03/06/25 08:34 Chlorhexidine 15 Ml PO 15 ml BID HINA Administration Chlorhexidine Gluconate 1 each 02/25/25 10:00 03/06/25 09:33 Chlorhexidine Gluc 2% Cloth 1 Each Towelette TOPICAL 1 each DAILY HINA Administration Furosemide 40 mg 02/27/25 14:00 03/06/25 14:25 Furosemide 40 Mg/4 Ml Vial IV 40 mg Q8 HINA Administration Protocol Fentanyl 100 mls @ 2.5 mls/hr 02/24/25 15:45 03/06/25 15:00 CONT INF 175 mcg/hr UD HINA 17.5 mls/hr Protocol Titration 25 MCG/HR Propofol 1,000 mg in 100 mls @ 4.272 mls/hr 02/24/25 15:45 03/06/25 15:00 Diprivan CONT INF 20 mcg/kg/min .Q12H HINA 8.5 mls/hr Protocol Titration 10 MCG/KG/MIN Sodium Chloride 250 mls @ 15 mls/hr 02/24/25 20:42 03/06/25 00:20 IV 0 mls/hr .[id number] PRN Infusion Saline Flush Sodium Chloride 250 mls @ 15 mls/hr 02/24/25 20:42 IV .[id number] PRN Additional IVPB Infusion Pantoprazole Sodium 40 mg/ 100 mls @ 300 mls/hr 02/25/25 10:00 03/06/25 10:30 Sodium Chloride IV Infused Q24 HINA Infusion Enteral Nutritional Formula 1,000 mls @ 50 mls/hr 02/25/25 13:15 03/06/25 00:00 Vital Af 1.2 Shiva Liquid GT 0 mls/hr .Q20H HINA Infusion Dexmedetomidine HCl 1,000 mcg/ 250 mls @ 8.9 mls/hr 02/26/25 22:00 03/06/25 15:00 Sodium Chloride CONT INF 0.8 mcg/kg/hr .Q28H6M HINA 14.2 mls/hr Protocol Titration 0.5 MCG/KG/HR Norepinephrine Bitartrate 8 mg 250 mls @ 9.375 mls/hr 02/28/25 02:25 03/06/25 15:00 / Sodium Chloride CONT INF 11 mcg/min .[id number] HINA 20.6 mls/hr Protocol Titration 5 MCG/MIN Vancomycin IV-PHARMACY TO DOSE 500 mls @ 250 mls/hr 03/01/25 09:28 1 each/ Sodium Chloride IV 03/07/25 23:59 X1 PRN Rx to Dose Protocol Vancomycin HCl 1,000 mg/ 270 mls @ 250 mls/hr 03/06/25 11:00 03/06/25 14:21 Sodium Chloride IV 03/07/25 23:59 Infused Q12H HINA Infusion Oxycodone HCl 2.5 - 5 mg 02/24/25 20:22 Oxycodone 5 Mg Tablet NG Q4H PRN PRN Pain Score 4-10 Polyethylene Glycol 17 gm 03/01/25 14:15 03/06/25 08:28 Polyethylene Glycol 3350 17 Gm Packet PO 17 gm DAILY HINA Administration Senna/Docusate Sodium 2 tablet 02/25/25 22:00 03/06/25 08:28 Senna/Docusate Sodium 1 Tablet GT 2 tablet BID HINA Administration Sodium Chloride 10 - 40 ml 02/24/25 20:42 03/06/25 07:01 0.9% Saline Lock 10 Ml Syringe IV 10 ml UD PRN Administration SALINE FLUSH PFSH Medical History Palliative care encounter Acute anemia Acute respiratory insufficiency Anxiety Anxiety and depression Respiratory insufficiency COPD with acute exacerbation Afib Aortic valve stenosis RLS (restless legs syndrome) History of ETOH abuse Chronic hypoxic respiratory failure, on home oxygen therapy COPD (chronic obstructive pulmonary disease) Anxiety Depression Smoker Asthma Hypertension Migraines Home Medications Medication Instructions Recorded Last Taken Type albuterol sulfate 90 mcg/actuation 1 - 2 puff inhalation Q4H PRN PRN 04/18/13 09/23/14 History aerosol inhaler (Ventolin HFA) Bronchodialation montelukast 10 mg tablet 10 mg PO DAILY allergies 04/18/13 09/23/14 History 10 MG tiotropium bromide 18 mcg capsule 1 puff inhalation DAILY wheezing 04/18/13 09/23/14 History with inhalation device (Spiriva with HandiHaler) Oxygen, Home [Home Oxygen] 2.5 lpm PRN PRN Dyspnea 10/22/13 09/23/14 History sertraline 100 mg tablet 100 mg PO BID mood 10/22/13 09/23/14 History Ropinirole Hcl 0.25 mg PO QHS restless legs 09/23/14 Unknown History ipratropium 0.5 mg-albuterol 3 mg 3 ml inhalation Q4HWA.RT wheezing 05/13/16 Unknown Rx (2.5 mg base)/3 mL nebulization ##30 soln cholecalciferol (vitamin D3) 50 50 mcg PO DAILY vitamin 10/18/23 Unknown History mcg (2,000 unit) capsule (Vitamin D3) ipratropium 0.5 mg-albuterol 3 mg 3 ml inhalation Q6H PRN shortness 10/18/23 Unknown Rx (2.5 mg base)/3 mL nebulization of breath or wheezing #180 mL soln buspirone 10 mg tablet 10 mg PO BID anxiety 10/02/24 Unknown History hydrocodone-acetaminophen 5-325mg 1 tab PO BID PRN PRN pain 10/03/24 Unknown History 5mg-325mg nicotine 14 mg/24 hr daily 14 mg transdermal DAILY prn #28 ea 10/09/24 Unknown Rx transdermal patch apixaban 5 mg tablet (Eliquis) 5 mg PO BID blood thinne #60 tabs 11/03/24 Unknown Rx carvedilol 6.25 mg tablet 6.25 mg PO BID bp #60 tabs 11/03/24 Unknown Rx furosemide 20 mg tablet 20 mg PO DAILY fluid overload 12/27/24 Unknown History pantoprazole 40 mg tablet,delayed 40 mg PO BID GERD #60 tabs 12/30/24 Unknown Rx release verapamil 180 mg 24 hr 180 mg PO BID #60 caps 12/30/24 Unknown Rx capsule,extended release OXYGEN - Supplemental ([facility] hypoxia 01/27/25 Unknown History INFORMATIONAL USE ONLY) alprazolam 0.25 mg tablet 0.25 mg PO Q6H PRN PRN Anxiety 3 01/31/25 Unknown Rx days #12 tabs potassium chloride 10 mEq 10 meq PO DAILYCM 30 days #0 tabs 01/31/25 Unknown Rx tablet,extended release(part/cryst) prednisone 20 mg tablet See Taper PO BREAKFAST #32 tabs 01/31/25 Unknown Rx bisacodyl 10 mg rectal suppository 10 mg TX ONCE 02/08/25 Unknown History cyanocobalamin (vitamin B-12) 500 500 mcg PO QDAY 02/08/25 Unknown History mcg tablet Allergy/AdvReac Type Severity Reaction Status Date / Time No Known Allergies Allergy Verified 02/12/25 08:52 Family History Mother Hypertension Throat cancer Father Hypertension Stomach cancer Surgical History H/O exploratory laparotomy History of lung surgery History of cholecystectomy Social History household members: significant other and none housing: apartment Smoking Status: Former smoker alcohol intake: former substance use type: does not use Review of Systems (Anesthesia) ROS Narrative System reviewed and no additional complaints, except as documented. Physical Exam Narrative Intubated & sedated Resp Resp Narrative: Intubated & sedated Cardio regular rate, regular rhythm and no murmurs
[2025-03-06] MEDS: 0.9% Normal Saline (1000mL) 1,000 ML 1000 ML IV (16:15)
[2025-03-06] MEDS: Midazolam 2 MG/2 ML Syringe IV (16:15)
[2025-03-06] MEDS: fentaNYL 100 MCG/2 ML Ampul IV (16:36)
[2025-03-06] MEDS: Lidocaine 1% /Epi 1:100 (20ml) 20 ML Vial (16:39)
--- NOTE | 2025-03-06 17:36 | PCM.POST.ANE ---
Anesthesia: Postop Eval I Current Vital Signs Temperature: 97.1 F Pulse Rate: 90 Blood Pressure: 168/73 Respiratory Rate: 14 Pulse Ox: 10 Oxygen Delivery Method: Mechanical Ventilator Fraction of Inspired Oxygen (FIO2): 0.30 Assessment Airway patent: Yes Spontaneous unlabored respirations: Yes Mental status: Asleep nausea: No Vomiting: No Anesthesia Complication: No Fluid Hydration Crystalloid volume administer (ml): 500 Total IV fluid infused: 500 Progress Note Anesthesia document: Postop Eval 1 completed: Yes
--- NOTE | 2025-03-06 18:14 | PN_ITS ---
Progress Note 69-year-old woman with a history of hypoxic respiratory failure who underwent tracheostomy tube placement today. The underwriting consultant was called to place a PEG tube. The patient's son was contacted, and consent for the procedure was obtained. The patient is currently resting comfortably. Physical Exam Const no apparent distress GI normal to inspection, nondistended, normoactive bowel sounds, soft to palpation, non-tender and non-distended Percussion: normal to percussion Rectal Exam: deferred Assessment & Plan Assessment/Plan (1) S/P percutaneous endoscopic gastrostomy (PEG) tube placement: (2) Acute on chronic respiratory failure with hypoxia and hypercapnia: PLAN: * Primary Problem: Acute hypercapnic and hypoxic respiratory failure likely secondary to underlying pulmonary or cardiac pathology (specific cause not detailed in the prompt), leading to the need for mechanical ventilation. * Secondary Problem: Altered mental status secondary to hypoxemia/hypercapnia. * Plan/Prognosis: The patient remains ventilator-dependent and has not been weaned. The need for long-term respiratory support is anticipated, leading to consideration of tracheostomy and permanent feeding support via PEG tube. Plan * Respiratory: Continue mechanical ventilation. Management by hospitalist and peel oven tender. * PEG tube placement for long-term nutritional support. * Surgery/ENT (Pending): Tracheostomy in the future. 03/06/2025- 69-year-old woman with hypoxic respiratory failure. * Recent tracheostomy placement. * Need for long-term nutritional support/enteral access. * Consent for PEG tube placement obtained from the patient's son. Plan * Proceed with Percutaneous Endoscopic Gastrostomy (PEG) tube placement tomorrow. * NPO (Nothing by Mouth) after midnight tonight in preparation for the procedure. * Continue current respiratory support and monitoring. * Inform primary team and nursing staff of the plan and NPO status. Visit Charges Inpatient E&M: [id number] [facility] L3
--- NOTE | 2025-03-06 18:14 | PCM.PN.BLA ---
Progress Note 69-year-old woman with a history of hypoxic respiratory failure who underwent tracheostomy tube placement today. The information systems consultant was called to place a PEG tube. The patient's son was contacted, and consent for the procedure was obtained. The patient is currently resting comfortably. Physical Exam Const no apparent distress GI normal to inspection, nondistended, normoactive bowel sounds, soft to palpation, non-tender and non-distended Percussion: normal to percussion Rectal Exam: deferred Assessment & Plan Assessment/Plan (1) S/P percutaneous endoscopic gastrostomy (PEG) tube placement: (2) Acute on chronic respiratory failure with hypoxia and hypercapnia: PLAN: Primary Problem: Acute hypercapnic and hypoxic respiratory failure likely secondary to underlying pulmonary or cardiac pathology (specific cause not detailed in the prompt), leading to the need for mechanical ventilation. Secondary Problem: Altered mental status secondary to hypoxemia/hypercapnia. Plan/Prognosis: The patient remains ventilator-dependent and has not been weaned. The need for long-term respiratory support is anticipated, leading to consideration of tracheostomy and permanent feeding support via PEG tube. Plan Respiratory: Continue mechanical ventilation. Management by hospitalist and construction coordinator. PEG tube placement for long-term nutritional support. Surgery/ENT (Pending): Tracheostomy in the future. 03/06/2025- 69-year-old woman with hypoxic respiratory failure. Recent tracheostomy placement. Need for long-term nutritional support/enteral access. Consent for PEG tube placement obtained from the patient's son. Plan Proceed with Percutaneous Endoscopic Gastrostomy (PEG) tube placement tomorrow. NPO (Nothing by Mouth) after midnight tonight in preparation for the procedure. Continue current respiratory support and monitoring. Inform primary team and nursing staff of the plan and NPO status. Visit Charges Inpatient E&M: [id number] [place] [id number]
[2025-03-07] VITALS (50 sets, daily range): BP systolic 87–151; BP diastolic 49–93; PULSE 22–156; RESP 14–28; TEMP 37.9–39.2; O2SAT 13–132; BMI 26.6
[2025-03-07] MEDS: fentaNYL drip 100 ML 17.5 MCG CONT INF ×2 (00:37→06:36)
[2025-03-07] MEDS: dexMEDEtomidine 1,000 MCG in 0.9% Normal Saline (250mL Bag) 240 ML 14.2 MCG CONT INF (03:00)
[2025-03-07 03:36] LABS: Hematocrit 26.9 % (37-47); Hemoglobin 8.1 g/dL (12.0-15.0); Immature Granulocytes Count 0.160 X10^3/uL (0.0-0.0); Mean Corp Hgb Conc 30.1 g/dL (32-36); Mean Corpuscular Volume 77.3 fL (81-99); Mean Platelet Vol. 10.3 fl (6.2-12.0); NRBC Flagged by Analyzer 0 % (0-5); Platelet Count 504 K/mm3 (150-450); RBC Distribution Width CV 16.3 % (11.6-14.6); RBC Distribution Width SD 45.8 fl (35.1-43.9); Red Blood Count 3.48 M/mm3 (4.2-5.4); White Blood Count 11.9 K/mm3 (4.4-11.0)
[2025-03-07] MEDS: Propofol 10MG/Ml 1,000 MG/100 ML Bottle 8.5 MG CONT INF (04:11)
[2025-03-07] MEDS: 0.9% Saline Lock 10 ML Syringe IV ×2 (04:12→06:51)
[2025-03-07 04:17] LABS: Anion Gap 15 (5-15); BUN 8 mg/dL (4-19); BUN/Creat Ratio 18.5 RATIO (10-20); Calcium,Total 7.9 mg/dL (7.6-11.0); Carbon Dioxide 25.9 mmol/L (21.0-32.0); Chloride 100 mmol/L (98-108); Estimated Creatinine Clearance 63.81 ml/min (50-250); Glucose 111 mg/dL (70-99); Potassium 2.7 mmol/L (3.3-5.1)
[2025-03-07] MEDS: Potassium Chloride 10mEq/100mL 10 MEQ/100 ML IV.SOLN. 100 MEQ IV BOLUS ×4 (05:22→08:45)
[2025-03-07] MEDS: Norepinephrine 8 MG in 0.9% Normal Saline (250mL Bag) 242 ML 24.4 MG CONT INF ×2 (05:55→16:15)
--- NOTE | 2025-03-07 08:21 | PCM.PN.INT ---
Assessment & Plan Assessment/Plan (1) Acute on chronic respiratory failure with hypoxia and hypercapnia: PLAN: Plan RECOMMENDATIONS: 1. Discontinue propofol and continue to wean Precedex and fentanyl. Start scheduled Seroquel twice daily. 2. Proceed with PEG tube placement. 3. Potassium repletion as ordered. 4. Continue antimicrobials to complete treatment course. 5. Continue scheduled bronchodilators. 6. Continue to hold Eliquis. 7. Continue Levophed to maintain a mean arterial pressure at or above 65 mmHg. 8. Continue appropriate GI prophylaxis. 9. LTACH disposition planning. IMPRESSIONS: 1. Acute on chronic combined respiratory failure Unclear if this was truly precipitated by the patient's COPD with concurrent panic attacks versus sequelae of her valvular heart disease. Her presentation was once again similar to that encountered in January 2025. Her chest imaging on this admission is not overtly concerning for underlying pneumonia. However, in light of her decompensated status, will treat with antimicrobials x 7 days. The patient does have a known extensive tobacco abuse history with questionable COPD. She has not followed on an outpatient basis by a continuous improvement consultant. Given the patient's failed attempt at extubation coupled with her inability to be weaned from invasive mechanical ventilatory support, the patient underwent tracheostomy placement with PEG tube pending. Continue to hold Eliquis. 2. History of aortic valve stenosis/atrial fibrillation The patient needs to continue her outpatient workup and follow-up for possible TAVR. The patient has been maintained on Eliquis as an outpatient. However, due to her presenting anemia and need for tracheostomy and PEG tube, recommend continuing to hold Eliquis. 3. History of restless leg syndrome/anxiety/depression/former tobacco dependency/history of non-small cell lung cancer status post right lobectomy Complicates care, management, recovery and prognosis. Continue supportive measures as noted above. Resume tube feeding for nutritional support, once PEG tube has been placed. TIME: 33 minutes of critical care time, independent of procedures, was spent addressing the patient's acute on chronic combined respiratory failure, aortic valve stenosis, atrial fibrillation, anemia, review of all data and collaboration with care team. Subjective Subjective The patient was seen and examined at the bedside this morning. Events from the last 24 hours have been reviewed. The patient remains on assist-control mode of mechanical ventilation with an FiO2 requirement of 30% and PEEP of 5. She underwent successful tracheostomy placement yesterday, with tentative plans for PEG tube placement today. Hemoglobin is stable at 8.1 g/dL. Platelet count is elevated at 504,000. Potassium is low at 2.7 with a normal creatinine. The patient did fail an attempt at a spontaneous breathing trial this morning secondary to hypoxia. Objective Data Objective Data The patient's most recent lab work, culture data and imaging studies have all been personally reviewed. Surface echocardiogram last completed on January 26 demonstrated an ejection fraction of 70%. Sputum culture dated February 27 was positive for presumptive Shakira albicans. Vital Signs: Vital Signs Temp Pulse Resp BP Pulse Ox O2 Del Method O2 Flow Rate 101.7 F H 102 H 14 118/63 93 Trach Collar 35 03/07/25 07:00 03/07/25 07:00 03/07/25 07:00 03/07/25 07:00 03/07/25 07:00 03/07/25 07:00 03/06/25 16:10 FiO2 30 03/07/25 07:00 Oxygen Flow Rate (L/min) 35 Oxygen Delivery Method Trach Collar Weight: 155 lb 3.287 oz Body Mass Index (BMI) 26.6 Intake & Output: Intake and Output for Last 24 Hours 03/05/25 03/06/25 03/07/25 23:59 23:59 23:59 Intake Total 3586.52 / 3967.99 3377.02 / 3439.72 665.88 / 665.88 Output Total 3825 / 3825 3035 / 3035 700 / 700 Balance -238.48 / 142.99 342.02 / 404.72 -34.12 / -34.12 Lab / Micro Data Attestation: I reviewed the patient's lab results. 03/07/25 03:14 03/07/25 03:14 Labs: Laboratory Results - last 24 hr 03/06/25 09:57: Vancomycin Trough 20.1 H 03/07/25 03:14: WBC 11.9 H, RBC 3.48 L, Hgb 8.1 L, Hct 26.9 L, MCV 77.3 L, MCH 23.3 L, MCHC 30.1 L, RDW Std Deviation 45.8 H, RDW Coeff of Augustin 16.3 H, Plt Count 504 H, MPV 10.3, Immature Gran % (Auto) 1.300 H, Neut % (Auto) 64.3, Lymph % (Auto) 16.6 L, Finney % (Auto) 7.6, Eos % (Auto) 9.5 H, Baso % (Auto) 0.7, Absolute Neuts (auto) 7.7, Absolute Lymphs (auto) 1.98, Nucleated RBC % 0, Sodium 140, Potassium 2.7 L*, Chloride 100, Carbon Dioxide 25.9, Anion Gap 15, BUN 8, Creatinine 0.46 L, Estim Creat Clear Calc 63.81, Est GFR (MDRD) Non-Af 104, BUN/Creatinine Ratio 18.5, Glucose 111 H, Calcium 7.9 Micro: Microbiology 02/27/25 15:51 Sputum, Induced/Lukens Gram Stain - Final 02/27/25 15:51 Sputum, Induced/Lukens Respiratory Culture - Final Presumptive C albicans 02/24/25 13:30 Blood Culture (Wb) - Anticubital Left Blood Culture - Final No growth in 5 days. 02/24/25 13:14 Blood Culture (Wb) - Anticubital Right Blood Culture - Final No growth in 5 days. 02/24/25 22:21 Sputum, Induced/Lukens Gram Stain - Final 02/24/25 22:21 Sputum, Induced/Lukens Respiratory Culture - Final Corynebacterium striatum 02/27/25 02:50 Stool Stool Occult Blood (MODE) - Final Occult Blood Positive 02/24/25 21:10 Mucosa - Nasopharyngeal Respiratory Panel (PCR) - Final 02/24/25 22:08 Urine Catheter - [place] Legionella Antigen - Final 02/24/25 22:08 Urine Catheter - [place] Streptococcus pneumoniae Antigen (M - Final 02/24/25 20:56 Nasal Secretion MRSA (PCR) - Final 02/24/25 13:36 Mucosa - Nose SARS-CoV-2, Influenza & RSV (PCR) - Final ABG Data ABG results: ABG 03/05/25 05:44 Specimen Type ART Sample Site L Radial pH 7.43 Bicarbonate Actual 33.9 H Total CO2 36 Base Excess 10 H O2 Saturation 94 O2 % 35.0 ABG pCO2 50.9 H ABG pO2 70 L Issa Test Positive Respiration Rate 14 O2 Delivery Device Adult Vent Vent Mode AC Tidal Volume 400.0 POC PEEP 5 Radiography Diagnostic Testing: Radiology Impression Chest X-Ray 11/03/25 14:55 IMPRESSION: The tip of the endotracheal tube is at 3.4 cm proximal the kaylan. Improved aeration of both lungs with mild degree of residual linear markings at the lung bases and right upper lobe. Reading Location: [id number] Rhythm Strip Rhythm Strip: Sinus Tach Physical Exam Const General Appearance: lethargic, ill appearing Positive for chronically and patient mechanically ventilated HEENT normocephalic and head/scalp atraumatic Eyes PERRL, conjunctivae normal and no scleral icterus Neck supple Neck Narrative: Tracheostomy site intact. General: trachea midline Chest inspection of chest normal Resp normal respiratory effort Auscultation: diminished lung sounds; Negative for rales, rhonchi or wheezes Cardio regular rate, S1 normal heart sound and S2 normal heart sound Heart Sounds: murmur GI soft to palpation and non-tender Extremity General Extremity: Negative for clubbing or edema Skin no rashes or lesions noted Neuro Sensorium / Orientation: sedated on vent Charges/Coding Procedures Hospitalists Procedures: [id number] Critical Care 1st Hr
[2025-03-07] MEDS: Potassium Chloride 20mEq/100mL 20 MEQ/100 ML IV.SOLN. 100 MEQ IV BOLUS ×2 (10:05→11:15)
[2025-03-07] MEDS: Chlorhexidine 15 ML PO ×2 (10:16→23:51)
--- NOTE | 2025-03-07 10:38 | PN_ITS ---
Subjective Subjective Patient seen and examined. She remains intubated and sedated. She is tachycardic this morning. His platelets have been weaned off. Patient is however agitated this morning. Heart rate is up to 145 this morning. She did have the trach done yesterday. Objective Data Objective Data Vital Signs: Vital Signs Temp Pulse Resp BP Pulse Ox O2 Del Method O2 Flow Rate 101.7 F H 145 H 18 146/81 H 95 Mechanical Ventilator 30 03/07/25 07:00 03/07/25 09:32 03/07/25 09:00 03/07/25 09:32 03/07/25 09:00 03/07/25 09:00 03/07/25 08:00 FiO2 30 03/07/25 09:00 Oxygen Flow Rate (L/min) 30 Oxygen Delivery Method Mechanical Ventilator Weight: 155 lb 3.287 oz Body Mass Index (BMI) 26.6 Intake & Output: Intake and Output for Last 24 Hours 03/05/25 03/06/25 03/07/25 23:59 23:59 23:59 Intake Total 3586.52 / 3967.99 3377.02 / 3439.72 878.90 / 878.90 Output Total 3825 / 3825 3035 / 3035 700 / 700 Balance -238.48 / 142.99 342.02 / 404.72 178.90 / 178.90 Lab / Micro Data 03/07/25 03:14 03/07/25 03:14 Labs: Laboratory Results - last 24 hr 03/06/25 09:57: Vancomycin Trough 20.1 H 03/07/25 03:14: WBC 11.9 H, RBC 3.48 L, Hgb 8.1 L, Hct 26.9 L, MCV 77.3 L, MCH 23.3 L, MCHC 30.1 L, RDW Std Deviation 45.8 H, RDW Coeff of Augustin 16.3 H, Plt Count 504 H, MPV 10.3, Immature Gran % (Auto) 1.300 H, Neut % (Auto) 64.3, Lymph % (Auto) 16.6 L, [place] % (Auto) 7.6, Eos % (Auto) 9.5 H, Baso % (Auto) 0.7, Absolute Neuts (auto) 7.7, Absolute Lymphs (auto) 1.98, Nucleated RBC % 0, Sodium 140, Potassium 2.7 L*, Chloride 100, Carbon Dioxide 25.9, Anion Gap 15, BUN 8, Creatinine 0.46 L, Estim Creat Clear Calc 63.81, Est GFR (MDRD) Non-Af 104, BUN/Creatinine Ratio 18.5, Glucose 111 H, Calcium 7.9 Micro: Microbiology 02/27/25 15:51 Sputum, Induced/Lukens Gram Stain - Final 02/27/25 15:51 Sputum, Induced/Lukens Respiratory Culture - Final Presumptive C albicans 02/24/25 13:30 Blood Culture (Wb) - Anticubital Left Blood Culture - Final No growth in 5 days. 02/24/25 13:14 Blood Culture (Wb) - Anticubital Right Blood Culture - Final No growth in 5 days. 02/24/25 22:21 Sputum, Induced/Lukens Gram Stain - Final 02/24/25 22:21 Sputum, Induced/Lukens Respiratory Culture - Final Corynebacterium striatum 02/27/25 02:50 Stool Stool Occult Blood (MODE) - Final Occult Blood Positive 02/24/25 21:10 Mucosa - Nasopharyngeal Respiratory Panel (PCR) - Final 02/24/25 22:08 Urine Catheter - Alvarenga Legionella Antigen - Final 02/24/25 22:08 Urine Catheter - Alvarenga Streptococcus pneumoniae Antigen (M - Final 02/24/25 20:56 Nasal Secretion MRSA (PCR) - Final 02/24/25 13:36 Mucosa - Nose SARS-CoV-2, Influenza & RSV (PCR) - Final Rhythm Strip Rhythm Strip: Sinus Tach Physical Exam Const Constitutional Narrative: Intubated, sedated, RASS score is +2; patient agitated HEENT normocephalic, head/scalp atraumatic, moist oral mucous membranes and oropharynx normal HEENT Narrative: has trach in situ Eyes EOMs intact bilaterally Neck supple and no JVD Lymph Lymphatic: no lymphadenopathy noted Resp Resp Narrative: Patient intubated, sedated, RASS score is +3 today. moderately diminished breath sounds bibasally, no wheezes or crackles. Cardio regular rhythm, S1 normal heart sound, S2 normal heart sound and no murmurs Cardio Narrative: tachycardic GI normal to inspection, nondistended, normoactive bowel sounds, soft to palpation and non-tender Extremity normal capillary refill and no clubbing, cyanosis or edema General Extremity: no tenderness to palpation of joints or extremities Skin General Skin Exam: no breakdown Neuro Neuro Narrative: intubated, trach in place. Patient agitated and restless Motor Exam: general weakness Assessment & Plan Assessment/Plan (1) Multifocal pneumonia: (2) Acute on chronic respiratory failure with hypoxia and hypercapnia: PLAN: Plan #Acute on chronic hypoxic and hypercapnic respiratory failure due to COPD exacerbation, acute exacerbation of heart failure with preserved ejection fraction and atypical pneumonia * Patient remains intubated and sedated. She has attempted self extubation during this admission and had to be intubated again. * Pulmonology on board. Management as per critical care. On antibiotics and steroids. Also being diuresed with IV Lasix. * Management as per critical care * on IV vancomycin now. Sputum cultures growing corynebacterium. * Sputum culture also growing presumptive Shakira albicans 2+. Will defer to critical care about initiating antifungals * off precedex drip * had trach inserted yesterday * ENT and GI consulted for trach and PEG. For PEG today. #COPD exacerbation: As above #Atypical pneumonia: CT chest showed lateral interstitial thickening which was thought to be edema versus infection. On broad-spectrum antibiotics and management as above. #Severe hypokalemia: Potassium is 2.7 today. Will replace and aggressively trend. #Nutrition: Patient currently on tube feeds. on reglan prn to help with residuals #Acute exacerbation of heart failure preserved ejection fraction: Has known EF of 70%. Being diuresed with IV Lasix. #Paroxysmal A-fib: Off eliquis for now. HR up in the 140s today. On carvedilol. She did receive a dose of IV lopressor also. If HR doesnt improve withj lopressor, may need to be put on cardizem/amiodarone drip #Severe aortic stenosis: Has been evaluated for TAVR at [facility]. Will need follow-up once she is extubated clinically stable. #Depression with anxiety: On buspirone and Xanax down the feeding tube #Anemia: Monitor hemoglobin closely. Transfuse if Hb is less than 7 #DVT prophylaxis: eliquis on hold pending trach and PEG. SCDs Disposition: Being evaluated for LTAC. LTAC staff will see and hopefully by the end of the week he will be transferred to LTAC. Charges/Coding Visit Charges Inpatient E&M: 07883 Subs Hosp L3
--- NOTE | 2025-03-07 10:57 | CASEMGMT ---
Addendum entered by Kumar Lora 03/07/25 16:06: Per Jorje @ [facility], he spoke w/pt's son, Nathaniel, and made plans to meet Nathaniel @ [facility] tomorrow @ 11 AM. Addendum entered by Kumar Lora 03/07/25 13:41: Failed SBT trial documentation sent to [facility]. Addendum entered by Kumar Lora 03/07/25 13:36: Call received back from Palma Zamarripa. She was given update on pt and plan for [facility] @ dc. Addendum entered by Kumar Lora 03/07/25 11:02: Message received that CM, Palma Gonzales, from [facility], called to speak w/this KAREN VARGAS. RN SAM placed call to Palma @ [phone]. No answer. left. Original Note: KAREN VARGAS NOTE: KAREN VARGAS participated in ICU interdisciplinary rounds. Trach was placed yesterday. Pt to get PEG placed today. Trach OP report and updated clinicals sent to [facility] via [employer]. Also message sent notifying them plan is for PEG placement today. Satya ZEPEDA RN, CM
[2025-03-07] MEDS: fentaNYL drip 100 ML 15 MCG CONT INF (12:15)
[2025-03-07] MEDS: Pantoprazole Sodium 40 MG in 0.9% Normal Saline (100mL MB+) 100 ML 300 MG IV (12:23)
[2025-03-07] MEDS: Jevity 1.5 1,000 ML 15 ML GT (12:51)
[2025-03-07] MEDS: Vancomycin HCl 1,000 MG in 0.9% Normal Saline (250mL Bag) 250 ML 250 MG IV ×2 (12:52→23:41)
--- NOTE | 2025-03-07 13:14 | OP.PROVAT_ITS ---
03/07/2025 Arn[address]fo Fall [address] [place] [address] Re : Upper GI endoscopy procedure for Farrah Gonzalez Dear Dr. Fall This procedure was performed on Friday, March 07, 2025. My impressions and recommendations are as follows: Impressions : - No gross lesions in the entire esophagus. - Gastritis. - No gross lesions in the entire examined duodenum. - An endoscopically removable PEG placement was successfully completed. - No specimens collected. Recommendations : - Discharge patient to home. - Resume previous diet. - Continue present medications. My findings are described in the full procedure note, which is enclosed. If I can be of further assistance, please feel free to contact me at . Sincerely, Kyle Mendenhall, 03/07/2025 1:13:38 PM This report has been signed electronically.
--- NOTE | 2025-03-07 13:14 | OP.EGD_ITS ---
Patient Name: Farrah Gonzalez Procedure Date: 03/07/2025 10:49 AM Date of : 1955 Age: 69 Procedure: Upper GI endoscopy Indications: Dysphagia, Place PEG because patient is unable to eat Providers: Kyle Mendenhall DO Medicines: Monitored Anesthesia Care Patient Profile: This is a 69 year old female. Refer to note in patient chart for documentation of history and physical. Patient has symptoms of dysphagia with both liquids and solids. Complications: No immediate complications. Procedure: Pre-Anesthesia Assessment: - Prior to the procedure, a History and Physical was performed, and patient medications and allergies were reviewed. The patient is competent. The risks and benefits of the procedure and the sedation options and risks were discussed with the patient. All questions were answered and informed consent was obtained. Patient identification and proposed procedure were verified by the physician in the pre-procedure area. Mental Status Examination: alert and oriented. Airway Examination: normal oropharyngeal airway and neck mobility. Respiratory Examination: clear to auscultation. CV Examination: normal. Prophylactic Antibiotics: The patient does not require prophylactic antibiotics. Prior Anticoagulants: The patient has taken no anticoagulant or antiplatelet agents. ASA Grade Assessment: II - A patient with mild systemic disease. After reviewing the risks and benefits, the patient was deemed in satisfactory condition to undergo the procedure. The anesthesia plan was to use monitored anesthesia care (MAC). Immediately prior to administration of medications, the patient was re-assessed for adequacy to receive sedatives. The heart rate, respiratory rate, oxygen saturations, blood pressure, adequacy of pulmonary ventilation, and response to care were monitored throughout the procedure. The physical status of the patient was re-assessed after the procedure. After obtaining informed consent, the endoscope was passed under direct vision. Throughout the procedure, the patient's blood pressure, pulse, and oxygen saturations were monitored continuously. The Endoscope was introduced through the mouth, and advanced to the third part of duodenum. The upper GI endoscopy was accomplished without difficulty. The patient tolerated the procedure well. Scope In: 11:56:09 AM Scope Out: 12:11:32 PM Total Procedure Duration Time 0 hours 15 minutes 23 seconds Findings: No gross lesions were noted in the entire esophagus. Diffuse moderate inflammation characterized by congestion (edema), erosions and erythema was found in the entire examined stomach. Placement of an endoscopically removable PEG with no T-fasteners was successfully completed. The external bumper was at the 4.0 cm marking on the tube. Estimated blood loss was minimal. No gross lesions were noted in the entire examined duodenum. Impression: - No gross lesions in the entire esophagus. - Gastritis. - No gross lesions in the entire examined duodenum. - An endoscopically removable PEG placement was successfully completed. - No specimens collected. Recommendation: - Discharge patient to home. - Resume previous diet. - Continue present medications. Procedure Code(s): --- Professional --- 87879, Esophagogastroduodenoscopy, flexible, transoral; with directed placement of percutaneous gastrostomy tube CPT copyright 2021 [employer]. All rights reserved. The codes documented in this report are preliminary and upon organic preparation analyst review may be revised to meet current compliance requirements. Kyle Mendenhall DO 03/07/2025 1:13:38 PM This report has been signed electronically. Number of Addenda: 0 Note Initiated On: 03/07/2025 10:49 AM
[2025-03-07] MEDS: CHLORHEXIDINE GLUC 2% CLOTH 1 EACH TOWELETTE TOPICAL ×2 (13:25→21:38)
--- NOTE | 2025-03-07 13:45 | WOUNDNOTE ---
wound photo: sacrum
[2025-03-07] MEDS: Acetaminophen 650 MG/20 ML UDC 1000 MG NG (21:41)
[2025-03-07] MEDS: 0.9% Normal Saline (250mL Bag) 250 ML 15 ML IV (23:41)
[2025-03-08] VITALS (59 sets, daily range): BP systolic 91–158; BP diastolic 47–110; PULSE 22–140; RESP 13–33; TEMP 36.4–38.1; O2SAT 90–136; BMI 26.9
[2025-03-08] MEDS: Norepinephrine 8 MG in 0.9% Normal Saline (250mL Bag) 242 ML 18.8 MG CONT INF (02:33)
--- NOTE | 2025-03-08 02:50 | RAD_ITS ---
PROCEDURE: CXR FOR LINE PLACEMENT 03/08/2025 REASON FOR EXAM: PICC LINE PLACEMENT TECHNIQUE: Procedure Code: RADCXRLP Modality: DX Procedure: CXR FOR LINE PLACEMENT COMPARISON: 03/03/2025. FINDINGS: Midline tracheostomy tube is in good position. Right PICC line is in good position with its tip in the superior vena cava. Unchanged blunting of the costophrenic angles. Increased bilateral basilar atelectatic pulmonary changes. Enlarged cardiac silhouette. Normal mediastinum and eli. Normal visualized pulmonary arteries. Atheromatous plaques of the visualized aortic arch and descending thoracic aorta. Diffuse spondylosis of the visualized thoracic spine. Normal visualized ribs, clavicles. Degenerative joint disease. There is no demonstrated abnormality of the visualized soft tissue structures of the upper abdomen. RAD/CXR for Line Placement IMPRESSION: Midline tracheostomy tube is in good position. Right PICC line is in good position with its tip in the superior vena cava. Unchanged blunting of the costophrenic angles. Increased bilateral basilar atelectatic pulmonary changes. Enlarged cardiac silhouette. [facility]
--- NOTE | 2025-03-08 03:35 | PCM.HOSP.N ---
Hospitalist Note Patient unfortunately pulled her PICC line out approximately 5 cm, film obtained and R PICC line is in good position with its tip in the superior vena cava. Requested staff to contact PICC line service today and make sure everything is Kosher on their end as far as dressing/care of the line. Given well-positioned will continue to use.
[2025-03-08 03:41] LABS: Hematocrit 24.5 % (37-47); Hemoglobin 7.5 g/dL (12.0-15.0); Immature Granulocytes Count 0.100 X10^3/uL (0.0-0.0); Mean Corp Hgb Conc 30.6 g/dL (32-36); Mean Corpuscular Volume 77.0 fL (81-99); Mean Platelet Vol. 10.6 fl (6.2-12.0); NRBC Flagged by Analyzer 0 % (0-5); Platelet Count 373 K/mm3 (150-450); RBC Distribution Width CV 15.9 % (11.6-14.6); RBC Distribution Width SD 45.0 fl (35.1-43.9); Red Blood Count 3.18 M/mm3 (4.2-5.4); White Blood Count 10.4 K/mm3 (4.4-11.0)
[2025-03-08 04:10] LABS: Anion Gap 13 (5-15); BUN 8 mg/dL (4-19); BUN/Creat Ratio 15.3 RATIO (10-20); Calcium,Total 8.5 mg/dL (7.6-11.0); Carbon Dioxide 26.4 mmol/L (21.0-32.0); Chloride 100 mmol/L (98-108); Estimated Creatinine Clearance 64.18 ml/min (50-250); Glucose 135 mg/dL (70-99); Magnesium 1.7 mg/dL (1.5-2.2); Potassium 3.0 mmol/L (3.3-5.1)
--- NOTE | 2025-03-08 07:25 | PCM.PN.INT ---
Assessment & Plan Assessment/Plan (1) Acute on chronic respiratory failure with hypoxia and hypercapnia: PLAN: Plan RECOMMENDATIONS: 1. Continue assist-control mode of mechanical ventilation. Continue daily attempts at SBT. 2. Continue tube feeding via PEG tube as tolerated. 3. Continue scheduled midodrine and continue to wean Levophed. 4. Continue BuSpar with plans to increase Seroquel dose. 5. Ongoing electrolyte repletion as needed. 6. Continue scheduled bronchodilators. 7. LTACH disposition planning. IMPRESSIONS: 1. Acute on chronic combined respiratory failure Unclear if this was truly precipitated by the patient's COPD with concurrent panic attacks versus sequelae of her valvular heart disease. Her presentation was once again similar to that encountered in January 2025. Her chest imaging on this admission is not overtly concerning for underlying pneumonia. However, in light of her decompensated status, the patient was ultimately treated with a 7-day course of antimicrobials. She does have a known extensive tobacco abuse history with questionable COPD. However, she has not followed on an outpatient basis by soccer coach. Given the patient's failed attempts at weaning from invasive mechanical ventilatory support, she ultimately underwent tracheostomy and PEG tube placement. She continues to fail spontaneous breathing trials and will therefore require LTACH placement. 2. History of aortic valve stenosis/atrial fibrillation The patient needs to continue her outpatient workup and follow-up for possible TAVR. The patient has been maintained on Eliquis as an outpatient. Systemic anticoagulation can be resumed at discharge. 3. History of restless leg syndrome/anxiety/depression/former tobacco dependency/history of non-small cell lung cancer status post right lobectomy Complicates care, management, recovery and prognosis. Continue supportive measures as noted above. Continue tube feeding for nutritional support via PEG tube. TIME: 32 minutes of critical care time, independent of procedures, was spent addressing the patient's acute on chronic combined respiratory failure, aortic valve stenosis, atrial fibrillation, anemia, review of all data and collaboration with care team. Subjective Subjective The patient was seen and examined at the bedside this morning. Events from the last 24 hours have been reviewed. The patient's fever curve is improving with Precedex discontinuation. She remains on low-dose Levophed. She has been tolerant of tube feeding. The patient is documented to be overall net +4.6 L for the hospitalization. Unfortunately, the patient failed her spontaneous breathing trial again this morning after she developed significant tachypnea with low tidal volumes. White blood cell count is normal. Potassium is low at 3.0. Creatinine is within normal limits. Objective Data Objective Data The patient's most recent lab work, culture data and imaging studies have all been personally reviewed. Surface echocardiogram last completed on January 26 demonstrated an ejection fraction of 70%. Sputum culture dated February 27 was positive for presumptive Shakira albicans. Vital Signs: Vital Signs Temp Pulse Resp BP Pulse Ox O2 Del Method O2 Flow Rate 99.9 F H 118 H 20 H 128/54 H 92 Mechanical Ventilator 30 03/08/25 07:00 03/08/25 07:00 03/08/25 07:00 03/08/25 07:00 03/08/25 07:00 03/08/25 07:00 03/07/25 08:00 FiO2 30 03/08/25 07:00 Oxygen Flow Rate (L/min) 30 Oxygen Delivery Method Mechanical Ventilator Weight: 156 lb 11.979 oz Body Mass Index (BMI) 26.9 Intake & Output: Intake and Output for Last 24 Hours 03/06/25 03/07/25 03/08/25 23:59 23:59 23:59 Intake Total 3377.02 / 3439.72 2344.28 / 2494.88 931.15 / 931.15 Output Total 3035 / 3035 2648 / 2648 Balance 342.02 / 404.72 -303.72 / -153.12 931.15 / 931.15 Lab / Micro Data Attestation: I reviewed the patient's lab results. 03/08/25 03:30 03/08/25 03:30 Labs: Laboratory Results - last 24 hr 03/08/25 03:30: WBC 10.4, RBC 3.18 L, Hgb 7.5 L, Hct 24.5 L, MCV 77.0 L, MCH 23.6 L, MCHC 30.6 L, RDW Std Deviation 45.0 H, RDW Coeff of Augustin 15.9 H, Plt Count 373, MPV 10.6, Immature Gran % (Auto) 1.000 H, Neut % (Auto) 74.1 H, Lymph % (Auto) 12.4 L, [place] % (Auto) 8.1, Eos % (Auto) 3.8, Baso % (Auto) 0.6, Absolute Neuts (auto) 7.7, Absolute Lymphs (auto) 1.29, Nucleated RBC % 0, Sodium 139, Potassium 3.0 L, Chloride 100, Carbon Dioxide 26.4, Anion Gap 13, BUN 8, Creatinine 0.51 L, Estim Creat Clear Calc 64.18, Est GFR (MDRD) Non-Af 101, BUN/Creatinine Ratio 15.3, Glucose 135 H, Calcium 8.5, Phosphorus 2.8, Magnesium 1.7 Micro: Microbiology 02/27/25 15:51 Sputum, Induced/Lukens Gram Stain - Final 02/27/25 15:51 Sputum, Induced/Lukens Respiratory Culture - Final Presumptive C albicans 02/24/25 13:30 Blood Culture (Wb) - Anticubital Left Blood Culture - Final No growth in 5 days. 02/24/25 13:14 Blood Culture (Wb) - Anticubital Right Blood Culture - Final No growth in 5 days. 02/24/25 22:21 Sputum, Induced/Lukens Gram Stain - Final 02/24/25 22:21 Sputum, Induced/Lukens Respiratory Culture - Final Corynebacterium striatum 02/27/25 02:50 Stool Stool Occult Blood (MODE) - Final Occult Blood Positive 02/24/25 21:10 Mucosa - Nasopharyngeal Respiratory Panel (PCR) - Final 02/24/25 22:08 Urine Catheter - Alvarenga Legionella Antigen - Final 02/24/25 22:08 Urine Catheter - Alvarenga Streptococcus pneumoniae Antigen (M - Final 02/24/25 20:56 Nasal Secretion MRSA (PCR) - Final 02/24/25 13:36 Mucosa - Nose SARS-CoV-2, Influenza & RSV (PCR) - Final ABG Data ABG results: ABG 03/05/25 05:44 Specimen Type ART Sample Site L Radial pH 7.43 Bicarbonate Actual 33.9 H Total CO2 36 Base Excess 10 H O2 Saturation 94 O2 % 35.0 ABG pCO2 50.9 H ABG pO2 70 L Issa Test Positive Respiration Rate 14 O2 Delivery Device Adult Vent Vent Mode AC Tidal Volume 400.0 POC PEEP 5 Radiography Diagnostic Testing: Radiology Impression Chest X-Ray 03/08/25 02:50 IMPRESSION: Midline tracheostomy tube is in good position. Right PICC line is in good position with its tip in the superior vena cava. Unchanged blunting of the costophrenic angles. Increased bilateral basilar atelectatic pulmonary changes. Enlarged cardiac silhouette. Reading Location: [place] [address] Rhythm Strip Rhythm Strip: Sinus Tach Physical Exam Const alert General Appearance: ill appearing Positive for chronically and patient mechanically ventilated HEENT normocephalic and head/scalp atraumatic Eyes PERRL, conjunctivae normal and no scleral icterus Neck supple Neck Narrative: Tracheostomy site intact. General: trachea midline Chest inspection of chest normal Resp normal respiratory effort Auscultation: diminished lung sounds; Negative for rales, rhonchi or wheezes Cardio regular rate, S1 normal heart sound and S2 normal heart sound Heart Sounds: murmur GI soft to palpation and non-tender Inspection: GI tube present Extremity General Extremity: Negative for clubbing or edema Skin no rashes or lesions noted Neuro moves all extremities and no focal motor deficits Psych Activity / Motor Behavior: restless Charges/Coding Procedures Hospitalists Procedures: 20014 Critical Care 1st Hr
[2025-03-08] MEDS: TITRATION PARAMETER CHANGE 1 EACH IV (08:11)
[2025-03-08] MEDS: Chlorhexidine 15 ML PO ×2 (08:12→21:55)
--- NOTE | 2025-03-08 09:12 | EKG12_ITS ---
Test Reason : qtc Blood Pressure : */* mmHG Vent. Rate : 123 BPM Atrial Rate : 123 BPM P-R Int : 166 ms QRS Dur : 82 ms QT Int : 332 ms P-R-T Axes : 85 50 69 degrees QTcB Int : 475 ms Sinus tachycardia with Premature atrial complexes Nonspecific T wave abnormality Abnormal ECG When compared with ECG of 05-Mar-2025 16:02, No significant change was found Confirmed by VINNY SCHULTE MD ([id number]), deputy editor in chief LEORA RESTREPO ([id number]) on 03/14/2025 6:41:28 AM Referred By: Ramirez Confirmed By: VINNY SCHULTE MD
[2025-03-08] MEDS: Potassium Chloride 20mEq/100mL 20 MEQ/100 ML IV.SOLN. 100 MEQ IV BOLUS ×2 (09:41→10:45)
[2025-03-08] MEDS: Potassium Chloride Oral Soln 20 MEQ/15 ML UDC 40 MEQ GT (09:43)
--- NOTE | 2025-03-08 10:41 | CASEMGMT ---
Updated notes and clinicals sent to [facility] via [employer] at this time including Cutter Operator Helper's Progress note, Failed SBT documentation, recent labs, VS, meds, therapy, and vent settings. [facility] Liaison (Jorje) still plans to meet with the son (Nathaniel) around 1100. ICU team notified during ICU rounds.
[2025-03-08] MEDS: Jevity 1.5 1,000 ML 45 ML GT (11:41)
[2025-03-08] MEDS: Pantoprazole Sodium 40 MG in 0.9% Normal Saline (100mL MB+) 100 ML 300 MG IV (11:56)
--- NOTE | 2025-03-08 13:46 | PN_ITS ---
Subjective Subjective Patient seen and examined. She remains on the vent. She is alert and kept trying to mouth words but I had difficulty understanding her; her nurse also had difficulty understanding her. Unable to do review of systems. Objective Data Objective Data Vital Signs: Vital Signs Temp Pulse Resp BP Pulse Ox O2 Del Method O2 Flow Rate 97.6 F L 105 H 22 H 104/48 L 93 Mechanical Ventilator 30 03/08/25 12:00 03/08/25 12:45 03/08/25 12:00 03/08/25 12:45 03/08/25 12:00 03/08/25 12:00 03/07/25 08:00 FiO2 35 03/08/25 12:00 Oxygen Flow Rate (L/min) 30 Oxygen Delivery Method Mechanical Ventilator Weight: 156 lb 11.979 oz Body Mass Index (BMI) 26.9 Intake & Output: Intake and Output for Last 24 Hours 03/06/25 03/07/25 03/08/25 23:59 23:59 23:59 Intake Total 3377.02 / 3439.72 2344.28 / 2494.88 1550.60 / 1550.60 Output Total 3035 / 3035 2648 / 2648 150 / 150 Balance 342.02 / 404.72 -303.72 / -153.12 1400.60 / 1400.60 Lab / Micro Data 03/08/25 03:30 03/08/25 03:30 Labs: Laboratory Results - last 24 hr 03/08/25 03:30: WBC 10.4, RBC 3.18 L, Hgb 7.5 L, Hct 24.5 L, MCV 77.0 L, MCH 23.6 L, MCHC 30.6 L, RDW Std Deviation 45.0 H, RDW Coeff of Augustin 15.9 H, Plt Count 373, MPV 10.6, Immature Gran % (Auto) 1.000 H, Neut % (Auto) 74.1 H, Lymph % (Auto) 12.4 L, [place] % (Auto) 8.1, Eos % (Auto) 3.8, Baso % (Auto) 0.6, Absolute Neuts (auto) 7.7, Absolute Lymphs (auto) 1.29, Nucleated RBC % 0, Sodium 139, Potassium 3.0 L, Chloride 100, Carbon Dioxide 26.4, Anion Gap 13, BUN 8, Creatinine 0.51 L, Estim Creat Clear Calc 64.18, Est GFR (MDRD) Non-Af 101, BUN/Creatinine Ratio 15.3, Glucose 135 H, Calcium 8.5, Phosphorus 2.8, Magnesium 1.7 Micro: Microbiology 02/27/25 15:51 Sputum, Induced/Lukens Gram Stain - Final 02/27/25 15:51 Sputum, Induced/Lukens Respiratory Culture - Final Presumptive C albicans 02/24/25 13:30 Blood Culture (Wb) - Anticubital Left Blood Culture - Final No growth in 5 days. 02/24/25 13:14 Blood Culture (Wb) - Anticubital Right Blood Culture - Final No growth in 5 days. 02/24/25 22:21 Sputum, Induced/Lukens Gram Stain - Final 02/24/25 22:21 Sputum, Induced/Lukens Respiratory Culture - Final Corynebacterium striatum 02/27/25 02:50 Stool Stool Occult Blood (MODE) - Final Occult Blood Positive 02/24/25 21:10 Mucosa - Nasopharyngeal Respiratory Panel (PCR) - Final 02/24/25 22:08 Urine Catheter - Al[place]renga Legionella Antigen - Final 02/24/25 22:08 Urine Catheter - Al[place]ga Streptococcus pneumoniae Antigen (M - Final 02/24/25 20:56 Nasal Secretion MRSA (PCR) - Final 02/24/25 13:36 Mucosa - Nose SARS-CoV-2, Influenza & RSV (PCR) - Final Radiography Diagnostic Testing: Radiology Impression Chest X-Ray 03/08/25 02:50 IMPRESSION: Midline tracheostomy tube is in good position. Right PICC line is in good position with its tip in the superior vena cava. Unchanged blunting of the costophrenic angles. Increased bilateral basilar atelectatic pulmonary changes. Enlarged cardiac silhouette. Reading Location: [place] [id number] Rhythm Strip Rhythm Strip: Sinus Tach Physical Exam Const Constitutional Narrative: Intubated, sedated, RASS score is +2; patient agitated HEENT normocephalic, head/scalp atraumatic, moist oral mucous membranes and oropharynx normal Eyes EOMs intact bilaterally Neck supple and no JVD Lymph Lymphatic: no lymphadenopathy noted Resp Resp Narrative: Patient intubated, sedated, RASS score is still +3. moderately diminished breath sounds bibasally, no wheezes or crackles. Cardio regular rate, regular rhythm, S1 normal heart sound, S2 normal heart sound and no murmurs Cardio Narrative: tachycardic GI normal to inspection, nondistended, normoactive bowel sounds, soft to palpation and non-tender Extremity normal capillary refill and no clubbing, cyanosis or edema General Extremity: no tenderness to palpation of joints or extremities Skin General Skin Exam: no breakdown Neuro Neuro Narrative: intubated, trach in place. Patient agitated and restless Motor Exam: general weakness Assessment & Plan Assessment/Plan (1) Multifocal pneumonia: (2) Acute on chronic respiratory failure with hypoxia and hypercapnia: PLAN: Plan #Acute on chronic hypoxic and hypercapnic respiratory failure due to COPD exacerbation, acute exacerbation of heart failure with preserved ejection fraction and atypical pneumonia * Patient remains intubated and sedated. She has attempted self extubation during this admission and had to be intubated again. * Pulmonology on board. Management as per critical care. On antibiotics and steroids. Also being diuresed with IV Lasix. * Management as per critical care * on IV vancomycin now. Sputum cultures growing corynebacterium. * Sputum culture also growing presumptive Shakira albicans 2+. Will defer to critical care about initiating antifungals * off precedex drip * had trach inserted yesterday * ENT and GI consulted for trach and PEG. For PEG today. #COPD exacerbation: As above #Atypical pneumonia: * CT chest showed lateral interstitial thickening which was thought to be edema versus infection. * On broad-spectrum antibiotics and management as above. #Severe hypokalemia: Potassium is 3.0 today. Will replace and aggressively trend. #Nutrition: Patient currently on tube feeds. on reglan prn to help with residuals #Acute exacerbation of heart failure preserved ejection fraction: Has known EF of 70%. Being diuresed with IV Lasix. #Paroxysmal A-fib: Off eliquis for now.. On carvedilol. Heart rate is better controlled at 101 today. #Severe aortic stenosis: Has been evaluated for TAVR at [facility]. Will need follow-up once she is extubated clinically stable. #Depression with anxiety: On buspirone and Xanax down the feeding tube #Anemia: Monitor hemoglobin closely. Transfuse if Hb is less than 7 #DVT prophylaxis: eliquis on hold pending trach and PEG. SCDs Disposition: Being evaluated for LTAC. LTAC staff will see and hopefully by the end of the week he will be transferred to LTAC. Charges/Coding Visit Charges Inpatient E&M: 05414 Subs Hosp L3
--- NOTE | 2025-03-08 13:48 | CASEMGMT ---
[facility] liaison reports that precert has been initiated at this time. CM to follow.
[2025-03-08] MEDS: 0.9% Normal Saline (250mL Bag) 250 ML 15 ML IV (17:43)
[2025-03-08] MEDS: CHLORHEXIDINE GLUC 2% CLOTH 1 EACH TOWELETTE TOPICAL (21:55)
[2025-03-09] VITALS (36 sets, daily range): BP systolic 74–120; BP diastolic 48–83; PULSE 100–121; RESP 14–36; TEMP 36.3–36.9; O2SAT 90–99; BMI 26.3
[2025-03-09 05:32] LABS: Hematocrit 21.3 % (37-47); Hemoglobin 6.6 g/dL (12.0-15.0); Immature Granulocytes Count 0.030 X10^3/uL (0.0-0.0); Mean Corp Hgb Conc 31.0 g/dL (32-36); Mean Corpuscular Volume 77.2 fL (81-99); Mean Platelet Vol. 9.9 fl (6.2-12.0); NRBC Flagged by Analyzer 0 % (0-5); Platelet Count 283 K/mm3 (150-450); RBC Distribution Width CV 16.2 % (11.6-14.6); RBC Distribution Width SD 45.4 fl (35.1-43.9); Red Blood Count 2.76 M/mm3 (4.2-5.4); White Blood Count 6.2 K/mm3 (4.4-11.0)
[2025-03-09 06:02] LABS: Anion Gap 9 (5-15); BUN 9 mg/dL (4-19); BUN/Creat Ratio 16.9 RATIO (10-20); Calcium,Total 8.5 mg/dL (7.6-11.0); Carbon Dioxide 31.4 mmol/L (21.0-32.0); Chloride 100 mmol/L (98-108); Estimated Creatinine Clearance 63.72 ml/min (50-250); Glucose 124 mg/dL (70-99); Potassium 3.0 mmol/L (3.3-5.1)
--- NOTE | 2025-03-09 07:39 | PCM.PN.INT ---
Assessment & Plan Assessment/Plan (1) Acute on chronic respiratory failure with hypoxia and hypercapnia: PLAN: Plan RECOMMENDATIONS: 1. Continue assist-control mode of mechanical ventilation. Continue daily attempts at SBT. 2. Continue tube feeding via PEG tube as tolerated. 3. Transfuse blood products as ordered. Check H&H posttransfusion. 4. Continue scheduled midodrine. 5. Continue BuSpar and Seroquel. 6. Ongoing electrolyte repletion as needed. 7. Continue scheduled bronchodilators. 8. If ongoing anemia persists, will ask gastroenterology to reevaluate patient. 9. LTACH disposition planning. IMPRESSIONS: 1. Acute on chronic combined respiratory failure Unclear if this was truly precipitated by the patient's COPD with concurrent panic attacks versus sequelae of her valvular heart disease. Her presentation was once again similar to that encountered in January 2025. Her chest imaging on this admission is not overtly concerning for underlying pneumonia. However, in light of her decompensated status, the patient was ultimately treated with a 7-day course of antimicrobials. She does have a known extensive tobacco abuse history with questionable COPD. However, she has not followed on an outpatient basis by learning program manager. Given the patient's failed attempts at weaning from invasive mechanical ventilatory support, she ultimately underwent tracheostomy and PEG tube placement. She continues to fail spontaneous breathing trials and will therefore require LTACH placement, which is currently pending. 2. History of aortic valve stenosis/atrial fibrillation The patient needs to continue her outpatient workup and follow-up for possible TAVR. The patient has been maintained on Eliquis as an outpatient. Systemic anticoagulation can be resumed at discharge. 3. History of restless leg syndrome/anxiety/depression/former tobacco dependency/history of non-small cell lung cancer status post right lobectomy/anemia Complicates care, management, recovery and prognosis. Continue supportive measures as noted above. Agree with transfusion of blood products today. Check H&H posttransfusion. Continue PPI therapy. If ongoing anemia persists, will ask gastroenterology to reevaluate patient. This note was generated with [employer] dictation software. It may contain incorrect words, spelling, and punctuation that were not noted in checking the note before signing. Subjective Subjective The patient was seen and examined at the bedside this morning. Events from the last 24 hours have been reviewed. The patient is currently afebrile with borderline hemodynamics and is maintaining appropriate oxygen saturations on assist-control mode mechanical ventilation with an FiO2 requirement of 30%. Unfortunately, she does continue to fail breathing trials secondary to increased work of breathing and tachypnea. She is currently documented to be overall net +4 L for the hospitalization. White blood cell count is normal. Hemoglobin has fallen to 6.6 g/dL. Platelet count is within normal limits. Potassium is low at 3.0 with a normal creatinine. The patient has been tolerant of tube feeding. Objective Data Objective Data The patient's most recent lab work, culture data and imaging studies have all been personally reviewed. Surface echocardiogram last completed on January 26 demonstrated an ejection fraction of 70%. Sputum culture dated February 27 was positive for presumptive Shakira albicans. Vital Signs: Vital Signs Temp Pulse Resp BP Pulse Ox O2 Del Method O2 Flow Rate 97.3 F L 114 H 17 74/61 L 96 Mechanical Ventilator 30 03/09/25 06:00 03/09/25 07:00 03/09/25 07:00 03/09/25 07:00 03/09/25 07:00 03/09/25 07:00 03/07/25 08:00 FiO2 30 03/09/25 07:00 Oxygen Flow Rate (L/min) 30 Oxygen Delivery Method Mechanical Ventilator Weight: 154 lb 5.177 oz Body Mass Index (BMI) 26.3 Intake & Output: Intake and Output for Last 24 Hours 03/07/25 03/08/25 03/09/25 23:59 23:59 23:59 Intake Total 2344.28 / 2494.88 1864.85 / 1994.85 230 / 230 Output Total 2648 / 2648 850 / 850 650 / 650 Balance -303.72 / -153.12 1014.85 / 1144.85 -420 / -420 Lab / Micro Data Attestation: I reviewed the patient's lab results. 03/09/25 05:15 03/09/25 05:15 Labs: Laboratory Results - last 24 hr 03/09/25 05:15: WBC 6.2, RBC 2.76 L, Hgb 6.6 L, Hct 21.3 L, MCV 77.2 L, MCH 23.9 L, MCHC 31.0 L, RDW Std Deviation 45.4 H, RDW Coeff of Augustin 16.2 H, Plt Count 283, MPV 9.9, Immature Gran % (Auto) 0.500, Neut % (Auto) 64.7, Lymph % (Auto) 21.1, [place] % (Auto) 8.3, Eos % (Auto) 5.2 H, Baso % (Auto) 0.2, Absolute Neuts (auto) 4.0, Absolute Lymphs (auto) 1.30, Nucleated RBC % 0, Sodium 140, Potassium 3.0 L, Chloride 100, Carbon Dioxide 31.4, Anion Gap 9, BUN 9, Creatinine 0.51 L, Estim Creat Clear Calc 63.72, Est GFR (MDRD) Non-Af 101, BUN/Creatinine Ratio 16.9, Glucose 124 H, Calcium 8.5 Micro: Microbiology 02/27/25 15:51 Sputum, Induced/Lukens Gram Stain - Final 02/27/25 15:51 Sputum, Induced/Lukens Respiratory Culture - Final Presumptive C albicans 02/24/25 13:30 Blood Culture (Wb) - Anticubital Left Blood Culture - Final No growth in 5 days. 02/24/25 13:14 Blood Culture (Wb) - Anticubital Right Blood Culture - Final No growth in 5 days. 02/24/25 22:21 Sputum, Induced/Lukens Gram Stain - Final 02/24/25 22:21 Sputum, Induced/Lukens Respiratory Culture - Final Corynebacterium striatum 02/27/25 02:50 Stool Stool Occult Blood (MODE) - Final Occult Blood Positive 02/24/25 21:10 Mucosa - Nasopharyngeal Respiratory Panel (PCR) - Final 02/24/25 22:08 Urine Catheter - Alvarenga Legionella Antigen - Final 02/24/25 22:08 Urine Catheter - Al[place]ga Streptococcus pneumoniae Antigen (M - Final 02/24/25 20:56 Nasal Secretion MRSA (PCR) - Final 02/24/25 13:36 Mucosa - Nose SARS-CoV-2, Influenza & RSV (PCR) - Final ABG Data ABG results: ABG 03/05/25 05:44 Specimen Type ART Sample Site L Radial pH 7.43 Bicarbonate Actual 33.9 H Total CO2 36 Base Excess 10 H O2 Saturation 94 O2 % 35.0 ABG pCO2 50.9 H ABG pO2 70 L Issa Test Positive Respiration Rate 14 O2 Delivery Device Adult Vent Vent Mode AC Tidal Volume 400.0 POC PEEP 5 Radiography Diagnostic Testing: Radiology Impression Chest X-Ray 03/08/25 02:50 IMPRESSION: Midline tracheostomy tube is in good position. Right PICC line is in good position with its tip in the superior vena cava. Unchanged blunting of the costophrenic angles. Increased bilateral basilar atelectatic pulmonary changes. Enlarged cardiac silhouette. Reading Location: [place] [id number] Rhythm Strip Rhythm Strip: Sinus Tach Physical Exam Const alert General Appearance: ill appearing Positive for chronically and patient mechanically ventilated HEENT normocephalic and head/scalp atraumatic Eyes PERRL, conjunctivae normal and no scleral icterus Neck supple Neck Narrative: Tracheostomy site intact. General: trachea midline Chest inspection of chest normal Resp normal respiratory effort Auscultation: diminished lung sounds; Negative for rales, rhonchi or wheezes Cardio regular rate, S1 normal heart sound and S2 normal heart sound Heart Sounds: murmur GI soft to palpation and non-tender Inspection: GI tube present Extremity General Extremity: Negative for clubbing or edema Skin no rashes or lesions noted Neuro moves all extremities and no focal motor deficits Psych Activity / Motor Behavior: restless Mood & Affect: flat affect Charges/Coding Visit Charges Inpatient E&M: 14482 Subs Hosp L3
[2025-03-09] MEDS: Chlorhexidine 15 ML PO (08:03)
--- NOTE | 2025-03-09 09:48 | CASEMGMT ---
Updates sent to [facility] via [employer] at this time. [facility] reports that precert is still pending. Updated ICU team during rounds. CM to follow. TC to pt's DH Palma VARGAS @ [phone]. Updates provided. [facility] staff to send DC summary to the CM at [phone] once able.
--- NOTE | 2025-03-09 09:52 | PCM.PN.PAL ---
Subjective Subjective 03/09/25: Pt is now trached and PEG. I did review labs, radiological studies and documentation since my last assessment. The plan is for her to go to [facility] in [place] at discharge once medically stable. I met with Denia at bedside this morning. She is alert and is able to communicate yes and no answers. . She does communicate verbally but she has to be reminded to slow down and annunciate so that she can be understood. She is aware of where she is. She did request that I call her SO Mike. I repeated what she said and she confirmed by shaking her head yes. I talked briefly about her long recovery and what they may look like for her, because of her extended hospital stay and debility associated with it. She nodded her head in understanding. We discussed her anxiety and she nodded her head yes in understanding. I did explain to her some deep breathing exercises. We then discussed the need for palliative care once she is transferred for an extra layer of support going forward. She is in agreement. I did speak with CM/SW to get referral. She states understanding that she needs to be well enough in order to have the TAVR that she needs. I did reach out to her boyfriend, Mike, per her request. I did not reach him but did leave a message. 02/27/25: Prior to meeting with the patient at bedside I did talk with Dr. Guzmán about the patient's case. He did state that the patient was extubated this morning in which she did have to be reintubated after 10 minutes for hypoxic respiratory failure. I then met with the patient and her significant other, Mike, at bedside. The patient is very awake and alert and able to communicate her needs and desires, at this time. She is currently on sedation. She was very adamant that she was wanting trach and PEG if needed and that she did not want me to call her son but that she wanted me to talk to her significant other Mike. Mike did confirm that the patient was stating that she did want trach and PEG if needed. He did confirm that these would be her wishes going forward. Ting currently denies pain. The patient did become agitated because Mike was having difficulty understanding some of her words thus we left the room and continued our conversation. He feels that Britt is in her right mind and that she understands what I was saying about trach and PEG. All questions Mike had were answered. Palliative care will continue to follow for goals of care conversations as clinical picture evolves. 02/26/25 to meeting with the patient at bedside I reviewed labs and radiological studies I also reviewed reviewed documentation from this admission and previous admissions. I then met with the patient, Ting at bedside. She is currently intubated and on sedation. I did meet with with the patients significant other,, Mike,in the room. I introduced myself and the concept of palliative care in which he voluntarily accepted the services. I did explain what palliative care is an how it could benefit Denia. He is open to further conversations, particularly the possibility of having her have pallaitive care follow her from an outpatient standpoint. He stated that they are familiar with SNF in the event they recommend rehab at discharge, once medically stable. Pt is currently ferberile, possible a reaction to initiating of presidex for sedation. She is tachycardic and normaltensive. Pt was able to communicate prior to increasing sedation as she did try to extubate herself. Pt does have severe aortic stenosis and needs a TAVR, which she is planning to have once medically stable, per significant other. She is being hampered by extreme anxiety. This is the patients second admission for the same compllaint. Following last admission she was sent to a nursing facility for rehab on 01/31/25. She was discharged to home and was home for one day before being readmitted for dyspnea. All questions were answered. Palliative care will continue to follow for goals of care conversations as clinical picture evolves. Per hospitalist, "DENIA MARC, is a 69 F who presents was discharged from [facility] about a day ago was brought by EMS for worsening shortness of breath on, hypoxia, SpO2 84% home oxygen 3 L, and then 88% on 12 L of nonbreathing mask. ETCO2 80 mmHg. In ED, patient was put temporarily on BiPAP and then intubated because of extreme shortness of breath/altered mental status Patient's boyfriend arrived later and after talking to him, patient did not had chest pain pressure or tightness. Denies fever. Might have cough which is not clear. Patient on IV propofol and fentanyl drip after intubation. Blood pressure was high but came down after starting IV propofol. Lab, imaging and assessment and plan discussed in assessment plan " Objective Data Objective Data Vital Signs: Vital Signs Temp Pulse Resp BP Pulse Ox O2 Del Method O2 Flow Rate 98.5 F 112 H 17 93/52 L 96 Mechanical Ventilator 30 03/09/25 08:23 03/09/25 08:23 03/09/25 08:23 03/09/25 08:23 03/09/25 08:23 03/09/25 08:23 03/07/25 08:00 FiO2 30 03/09/25 08:23 Oxygen Flow Rate (L/min) 30 Oxygen Delivery Method Mechanical Ventilator Weight: 154 lb 5.177 oz Body Mass Index (BMI) 26.3 Intake & Output: Intake and Output for Last 24 Hours 03/07/25 03/08/25 03/09/25 23:59 23:59 23:59 Intake Total 2344.28 / 2494.88 1864.85 / 1994.85 230 / 230 Output Total 2648 / 2648 850 / 850 650 / 650 Balance -303.72 / -153.12 1014.85 / 1144.85 -420 / -420 Lab / Micro Data Attestation: I reviewed the patient's lab results. Lab results narrative: anemia. Hgb 6.6. Pt would benefit from a unit of PRBC 03/09/25 05:15 03/09/25 05:15 Labs: Laboratory Results - last 24 hr 03/09/25 05:15: WBC 6.2, RBC 2.76 L, Hgb 6.6 L, Hct 21.3 L, MCV 77.2 L, MCH 23.9 L, MCHC 31.0 L, RDW Std Deviation 45.4 H, RDW Coeff of Augustin 16.2 H, Plt Count 283, MPV 9.9, Immature Gran % (Auto) 0.500, Neut % (Auto) 64.7, Lymph % (Auto) 21.1, Huron % (Auto) 8.3, Eos % (Auto) 5.2 H, Baso % (Auto) 0.2, Absolute Neuts (auto) 4.0, Absolute Lymphs (auto) 1.30, Nucleated RBC % 0, Sodium 140, Potassium 3.0 L, Chloride 100, Carbon Dioxide 31.4, Anion Gap 9, BUN 9, Creatinine 0.51 L, Estim Creat Clear Calc 63.72, Est GFR (MDRD) Non-Af 101, BUN/Creatinine Ratio 16.9, Glucose 124 H, Calcium 8.5 Micro: Microbiology 02/27/25 15:51 Sputum, Induced/Lukens Gram Stain - Final 02/27/25 15:51 Sputum, Induced/Lukens Respiratory Culture - Final Presumptive C albicans 02/24/25 13:30 Blood Culture (Wb) - Anticubital Left Blood Culture - Final No growth in 5 days. 02/24/25 13:14 Blood Culture (Wb) - Anticubital Right Blood Culture - Final No growth in 5 days. 02/24/25 22:21 Sputum, Induced/Lukens Gram Stain - Final 02/24/25 22:21 Sputum, Induced/Lukens Respiratory Culture - Final Corynebacterium striatum 02/27/25 02:50 Stool Stool Occult Blood (MODE) - Final Occult Blood Positive 02/24/25 21:10 Mucosa - Nasopharyngeal Respiratory Panel (PCR) - Final 02/24/25 22:08 Urine Catheter - Huynh Legionella Antigen - Final 02/24/25 22:08 Urine Catheter - Huynh Streptococcus pneumoniae Antigen (M - Final 02/24/25 20:56 Nasal Secretion MRSA (PCR) - Final 02/24/25 13:36 Mucosa - Nose SARS-CoV-2, Influenza & RSV (PCR) - Final Rhythm Strip Rhythm Strip: Sinus Tach Rate: 117 Physical Exam Const alert Constitutional Narrative: pt is able to answer yes and no questions appropriately. General Appearance: cooperative Orientation / Consciousness: awake Exam Limitations: physical limitations and other limitations HEENT normocephalic Mouth: oral and palatal mucosa normal Eyes PERRL Neck full ROM Neck Narrative: trach Lymph Lymphatic: lymphedema Resp Auscultation: wheezes and diminished lung sounds Cardio regular rhythm Cardio Narrative: murmur noted Rate: tachycardic Peripheral Pulses: pulses 2+ throughout GI soft to palpation GI Narrative: PEG tube with tube feeds infusing. Area around the PEG is clean and dry with no redness Auscultation: normoactive bowel sounds and hypoactive bowel sounds Narrative: huynh cath draining clear yellow urine Bladder / Kidney Exam: catheter in place Back/Spine Thoracic Spine / Upper Back: other soft tissue findings bilateral (painful from "laying in the bed so long.") Extremity no pedal edema Skin no rashes or lesions noted Neuro moves all extremities Sensorium / Orientation: awake and alert Gait (Neuro): unable to assess gait Motor Exam: general weakness Psych Psych Narrative: unable to assess- appears appropriate but document that she has had anxiety Charges/Coding Palliative Care Palliative Care: [id number] Follow up 50+ min Consulation Summary Current admission Current Code Status: full code Associated Diagnosis: respiratory failure Consult Data Date of Consult: 03/06/25 Location of consult: ICU Reason for referral: Goals of care Referral source: Dr. Guzmán Palliative care diagnosis (Summary list): Severe aortic stenosis intubated Palliative care services/treatment (Accepted, as consult): accepted Case discussed with referring provider: with SW-follow up Palliative Assessment Advanced Directive - Current Admission Advance Directive: Advance Directive ON ADMISSION - REFERENCE Do you have a Healthcare Yes 02/24/25 20:40 Living Will? Is a Healthcare Living Will No, requested patient bring 02/24/25 20:40 present in the medical record? copy into [facility] Do you have a Healthcare Power No 02/24/25 20:40 of Animal Laboratory Technician? Is a Healthcare Power of No, requested patient bring 02/24/25 13:29 Animal Laboratory Technician present in the copy into [facility] medical rec Do You Want Additional Yes 02/24/25 20:40 Information on Advanced Directives or Healthcare Proxy/DPOA comments: selene Armstrong is NOK Symptoms Dyspnea symptoms: Moderate Anorexia symptoms: Moderate Fatigue symptoms: Moderate Weakness symptoms: Severe Impression & Recommendations Impressions Impressions: pt appears to be alert and oriented although pt is unable to full answer orietnation questions because of trach Recommentation Palliative recommendations: outpatient palliative care Encouter Achieved as a result of this Palliative Care Encounter: [[id number] ] minutes were spent in total for this visit which consisted, primarily of counseling and education dealing with the complex and emotionally intense issues of symptom management and palliative care in the setting of serious and potentially life-threatening illness. Review of documentation, labs and radiological studies. Patient/family had the opportunity to ask questions Plan (1) Acute on chronic respiratory failure with hypoxia and hypercapnia: PLAN: Medical management per primary team (2) Multifocal pneumonia: PLAN: Medical management per primary team (3) Acute exacerbation of chronic obstructive pulmonary disease: PLAN: Medical management per primary team (4) Chronic anemia: PLAN: Medical management per primary team (5) Pneumonia: PLAN: Medical management per primary team (6) Anxiety and depression: PLAN: Medical management per primary team (7) Goals of care, counseling/discussion: PLAN: *Discussion with pt about goals of care going forward *pt is open to outpatient palliative care. *conversation with SW/CM about referral *attempted call to partnerMike, PLAN: Plan *Recommend palliative care outpatient services ROS ROS Narrative limited related to trach and PEG. Review of Systems ROS Unobtainable: due to endotracheal tube and due to mental status Constitutional Constitutional: Reports fatigue Eyes Eyes: Reports systems reviewed and no addt'l complaints, except as documented ENT HEENT: Reports other Details: trach. Respiratory/Chest Respiratory/Chest: Reports shortness of breath at rest Gastrointestinal Gastrointestinal: Reports none Genitourinary Genitourinary: Reports other Details: huynh cath Musculoskeletal Musculoskeletal: Reports back pain Integumentary Integumentary: Reports as per HPI Neurologic Neurologic: Reports systems reviewed and no addt'l complaints, except as documented Psychiatric Psychiatric: Reports other Details: unable to assess- appears appropriate at this time Hematologic/Lymphatic Hematologic/Lymphatic: Reports as per HPI Allergic/Immunologic Allergic/Immunologic: Reports as per HPI
[2025-03-09] MEDS: Potassium Chloride Oral Soln 20 MEQ/15 ML UDC 40 MEQ PO (09:58)
[2025-03-09] MEDS: Potassium Chloride 10mEq/100mL 10 MEQ/100 ML IV.SOLN. 100 MEQ IV BOLUS ×4 (09:58→14:01)
--- NOTE | 2025-03-09 10:13 | CASEMGMT ---
[facility] Palliative Care DEPUTY SHERIFF states to this RN CM that the pt requires inpt Palliative Care consult at the LTACH as well as OP eventually. TC to Jorje ([facility] Liaison) who states that they will place an order for the pt to be seen at the LTACH and that their team will set up OP once appropriate. [facility] Palliative Care DEPUTY SHERIFF updated. CM to send Palliative Care consult note once signed.
[2025-03-09] MEDS: Pantoprazole Sodium 40 MG in 0.9% Normal Saline (100mL MB+) 100 ML 300 MG IV (10:19)
[2025-03-09] MEDS: 0.9% Normal Saline (250mL Bag) 250 ML 15 ML IV (10:19)
--- NOTE | 2025-03-09 10:51 | PCM.PROGNOTE ---
Subjective Subjective Patient seen and examined. She remains intubated and sedated. She is tachycardic today with heart rate of 110. Unable to do review of systems as she is intubated and sedated still. LTAC reviewed patient today. Objective Data Objective Data Vital Signs: Vital Signs Temp Pulse Resp BP Pulse Ox O2 Del Method O2 Flow Rate 98.5 F 110 H 19 H 93/52 L 97 Mechanical Ventilator 30 03/09/25 08:23 03/09/25 09:56 03/09/25 09:30 03/09/25 08:23 03/09/25 09:30 03/09/25 08:23 03/07/25 08:00 FiO2 30 03/09/25 09:30 Oxygen Flow Rate (L/min) 30 Oxygen Delivery Method Mechanical Ventilator Weight: 154 lb 5.177 oz Body Mass Index (BMI) 26.3 Intake & Output: Intake and Output for Last 24 Hours 03/07/25 03/08/25 03/09/25 23:59 23:59 23:59 Intake Total 2344.28 / 2494.88 1864.85 / 1994.85 479.25 / 479.25 Output Total 2648 / 2648 850 / 850 650 / 650 Balance -303.72 / -153.12 1014.85 / 1144.85 -170.75 / -170.75 Lab / Micro Data 03/09/25 05:15 03/09/25 05:15 Labs: Laboratory Results - last 24 hr 03/09/25 05:15: WBC 6.2, RBC 2.76 L, Hgb 6.6 L, Hct 21.3 L, MCV 77.2 L, MCH 23.9 L, MCHC 31.0 L, RDW Std Deviation 45.4 H, RDW Coeff of Augustin 16.2 H, Plt Count 283, MPV 9.9, Immature Gran % (Auto) 0.500, Neut % (Auto) 64.7, Lymph % (Auto) 21.1, Pershing % (Auto) 8.3, Eos % (Auto) 5.2 H, Baso % (Auto) 0.2, Absolute Neuts (auto) 4.0, Absolute Lymphs (auto) 1.30, Nucleated RBC % 0, Sodium 140, Potassium 3.0 L, Chloride 100, Carbon Dioxide 31.4, Anion Gap 9, BUN 9, Creatinine 0.51 L, Estim Creat Clear Calc 63.72, Est GFR (MDRD) Non-Af 101, BUN/Creatinine Ratio 16.9, Glucose 124 H, Calcium 8.5 03/09/25 09:50: Blood Type A POSITIVE, Antibody Screen NEGATIVE, Crossmatch See Detail Micro: Microbiology 02/27/25 15:51 Sputum, Induced/Lukens Gram Stain - Final 02/27/25 15:51 Sputum, Induced/Lukens Respiratory Culture - Final Presumptive C albicans 02/24/25 13:30 Blood Culture (Wb) - Anticubital Left Blood Culture - Final No growth in 5 days. 02/24/25 13:14 Blood Culture (Wb) - Anticubital Right Blood Culture - Final No growth in 5 days. 02/24/25 22:21 Sputum, Induced/Lukens Gram Stain - Final 02/24/25 22:21 Sputum, Induced/Lukens Respiratory Culture - Final Corynebacterium striatum 02/27/25 02:50 Stool Stool Occult Blood (MODE) - Final Occult Blood Positive 02/24/25 21:10 Mucosa - Nasopharyngeal Respiratory Panel (PCR) - Final 02/24/25 22:08 Urine Catheter - Alvarenga Legionella Antigen - Final 02/24/25 22:08 Urine Catheter - Al[place]ga Streptococcus pneumoniae Antigen (M - Final 02/24/25 20:56 Nasal Secretion MRSA (PCR) - Final 02/24/25 13:36 Mucosa - Nose SARS-CoV-2, Influenza & RSV (PCR) - Final Rhythm Strip Rhythm Strip: Sinus Tach Rate: 117 Physical Exam Const Constitutional Narrative: Intubated, sedated, RASS score is -4 today. HEENT normocephalic, head/scalp atraumatic, moist oral mucous membranes and oropharynx normal HEENT Narrative: trach in situ Eyes EOMs intact bilaterally Neck supple and no JVD Lymph Lymphatic: no lymphadenopathy noted Resp Resp Narrative: Patient intubated, sedated, RASS score is still +3. moderately diminished breath sounds bibasally, no wheezes or crackles. Cardio regular rate, regular rhythm, S1 normal heart sound, S2 normal heart sound and no murmurs Cardio Narrative: tachycardic GI normal to inspection, nondistended, normoactive bowel sounds, soft to palpation and non-tender GI Narrative: PEG tube in situ Extremity normal capillary refill and no clubbing, cyanosis or edema General Extremity: no tenderness to palpation of joints or extremities Skin General Skin Exam: no breakdown Neuro Neuro Narrative: intubated, trach in place. Sedated. RASS score is -4 Motor Exam: general weakness Assessment & Plan Assessment/Plan (1) Multifocal pneumonia: (2) Acute on chronic respiratory failure with hypoxia and hypercapnia: PLAN: Plan #Acute on chronic hypoxic and hypercapnic respiratory failure due to COPD exacerbation, acute exacerbation of heart failure with preserved ejection fraction and atypical pneumonia Patient remains intubated and sedated. She has attempted self extubation during this admission and had to be intubated again. Pulmonology on board. Management as per critical care. On antibiotics and steroids. Also being diuresed with IV Lasix. Management as per critical care completed a course of vancomycin. Sputum cultures growing corynebacterium. Sputum culture also growing presumptive Shakira albicans 2+. had trach inserted as well as PEG tube ENT and GI consulted for trach and PEG. For PEG today. #COPD exacerbation: As above #Atypical pneumonia: CT chest showed lateral interstitial thickening which was thought to be edema versus infection. completed a course of antibiotics #Acute on chronic anemia: off eliquis. Hb is 6.6 today. 2 units of PRBCs ordered today. #Severe hypokalemia: Potassium is still 3.0 today. Will replace and aggressively trend. #Nutrition: Patient currently on tube feeds. on reglan prn to help with residuals #Acute exacerbation of heart failure preserved ejection fraction: Has known EF of 70%. Being diuresed with IV Lasix. #Paroxysmal A-fib: Off eliquis for now.. On carvedilol. Heart rate is better controlled at 101 today. #Severe aortic stenosis: Has been evaluated for TAVR at [facility]. Will need follow-up once she is extubated clinically stable. #Depression with anxiety: On buspirone and Xanax down the feeding tube #DVT prophylaxis: eliquis on hold pending trach and PEG. SCDs Disposition: Being evaluated for LTAC. LTAC staff will see and hopefully by the end of the week he will be transferred to LTAC. Charges/Coding Visit Charges Inpatient E&M: 44800 Subs Hosp L3
[2025-03-09] MEDS: Jevity 1.5 1,000 ML 45 ML GT (11:47)
--- NOTE | 2025-03-09 13:03 | CASEMGMT ---
Addendum entered by Satya Altamirano 03/09/25 15:37: [facility] reports that the accepting Physician is Dr Hummel. Pt's RN updated. Addendum entered by Satya Altamirano 03/09/25 15:28: TC to the pt's son, Nathaniel, and notified that the pt will be going to [facility] in [place] today. Addendum entered by Satya Altamirano 03/09/25 13:56: Transfer orders faxed to [facility] as requested. TC to pt's CM. No answer, left with update. Addendum entered by Satya Altamirano 03/09/25 13:51: Hospitalist provided signed med list and transfer orders. Signed med list and transfer orders sent to [facility] via [employer]. Copies made. Original signed med list, transfer summary, and transportation form placed in pt's DC packet. Copies placed in the pt's chart. [facility] reports that they do not have any more needs at this time. Original Note: [facility] states that precert has been obtained. Cowlman and the hospitalist notified who plans to DC the pt today. Updated pt's RN who states that the pt is getting blood at this time. N2N provided to the pt's RN. TC to [facility] to schedule transportation. [facility] states that they prefer to pick the pt up at [facility] at 1500. Notified Cowlman, hospitalist, and the RN. RN reports that the second unit of blood still needs hung. [facility] states that they are able to transfuse the blood in transit. Cowlman states that he is OK with the pt leaving [facility] during the second blood transfusion. At this time, awaiting DC orders from the hospitalist. CM to follow.
--- NOTE | 2025-03-09 13:34 | TREXTCAR_ITS ---
Diet Diet Order/Speech Therapy: INPATIENT Hospital Diet / Speech Therapy Order(s) 02/24/25 20:22 Diet: Nothing Per Oral Routine Orders/Code Status Enema Type: Fleetz Enema Frequency: Daily PRN Suppository Frequency: Daily PRN DC O2, CPAP, BIPAP needs Home O2 Discharge instructions: No Wound(s) sacrum: Wound Type: Pressure Injury Dressing Change: foam dressing Therapies Weight Bearing: Weight bearing as tolerated Physical Therapy: Eval and Treat Occupational Therapy: Eval and Treat Speech Therapy: Eval and Treat Problem/Diagnosis (1) Multifocal pneumonia: Status: Acute Code(s): J18.8 - Other pneumonia, unspecified organism (2) Acute on chronic respiratory failure with hypoxia and hypercapnia: Status: Chronic Code(s): J96.21 - Acute and chronic respiratory failure with hypoxia; J96.22 - Acute and chronic respiratory failure with hypercapnia Plan #Acute on chronic hypoxic and hypercapnic respiratory failure due to COPD exacerbation, acute exacerbation of heart failure with preserved ejection fraction and atypical pneumonia * Patient remains intubated and sedated. She has attempted self extubation during this admission and had to be intubated again. * Pulmonology on board. Management as per critical care. On antibiotics and steroids. Also being diuresed with IV Lasix. * Management as per critical care * completed a course of vancomycin. Sputum cultures growing corynebacterium. * Sputum culture also growing presumptive Shakira albicans 2+. * had trach inserted as well as PEG tube * ENT and GI consulted for trach and PEG. For PEG today. #COPD exacerbation: As above #Atypical pneumonia: * CT chest showed lateral interstitial thickening which was thought to be edema versus infection. * completed a course of antibiotics * #Acute on chronic anemia: off eliquis. Hb is 6.6 today. 2 units of PRBCs ordered today. #Severe hypokalemia: Potassium is still 3.0 today. Will replace and aggressively trend. #Nutrition: Patient currently on tube feeds. on reglan prn to help with residuals #Acute exacerbation of heart failure preserved ejection fraction: Has known EF of 70%. Being diuresed with IV Lasix. #Paroxysmal A-fib: Off eliquis for now.. On carvedilol. Heart rate is better controlled at 101 today. #Severe aortic stenosis: Has been evaluated for TAVR at [facility]. Will need follow-up once she is extubated clinically stable. #Depression with anxiety: On buspirone and Xanax down the feeding tube #DVT prophylaxis: eliquis on hold pending trach and PEG. SCDs Disposition: Being evaluated for LTAC. LTAC staff will see and hopefully by the end of the week he will be transferred to LTAC. Allergies/Procedures Done in Hospital Allergies No Known Allergies Allergy (Verified 02/12/25 08:52) Procedures: 2-D Echocardiogram, Intubation and - (tracheostomy, PEG tube ) Type of Care/Length of Stay Estimated LOS: Convalescent Care Less Than 30 days Type of Care Needed: LTAC Rehab Potential: Fair Prognosis: Fair Additional Orders/Day of Discharge Day of Discharge: 03/09/25 Dietary and Speech Recommendations Dietitian Recommendations/Changes: 1. Continue via PEG Jevity 1.5Cal goal rate 45mL/hr with 130mL water flushes every 4 hours to provide 1620 calories, 69g protein, 1600mL free water per day. 2. Will monitor and make adjustments to tube feeding as needed. 3. Will monitor weight and labs. Discharge Plan Admission Admit Date/Time: 02/24/25 17:24 Primary Reason for Your Visit: acute hypoxic and hypercapnic respiratory failure Attending Provider: Lynne Schafer Primary Care Provider: Arnulfo Fall Consulting Providers: Rolo Torres; James Huddleston; Deshaun Benites; Andriy Guzmán; José May; Irene Churchill; Sid Mortensen; Guille Feliz; Octavio Jones; Rubia Dumont; Juni Wood; Nathan Ye; Chloé Gordillo; Andrade English; Bright Hughes; Riley Wong; Ban Guerrero; Heena Moore; Sy Dumont; Mackenzie Christiansen; Katrin Kim; Arnulfo Abarca; Michael Hamilton; Meggan Araujo; Adilia Chopra; Iman Ramirez; Michael Duke; Jan Aege; Levi Mercado; Jesus Thomas; Luna Quiros; Shahriar Gonzalez; Obed Isbell; Juan A Bowles; Rusty Corado; Marianna Tolentino; Mega Barba; Matthew Cobb; Murtaza Tamez; Turfe,Kevin; Lawson,Austin; Jia Krishna; Rob Augustin; Susan Madison NP; Haylee Shafer; Stacy Jha; José Martin; Patrick Ralph; Alessandro Palma; Kyle Mendenhall; Elma Mendez; Mercedez Joseph; Jackie Henry Instructions Patient Instructions: Respiratory Failure: General Info, Dysphagia Aspiration Tx, ED Pneumonia (Adult) Discharge Orders/Prescriptions Prescriptions: New midodrine 5 mg Tablet 10 mg PO TIDCM Qty: 90 0RF metoprolol tartrate 25 mg Tablet 25 mg PO BID Qty: 60 0RF Continued Eliquis 5 mg tablet 5 mg PO BID Qty: 60 11RF Rx Instructions: Discontinue if platelet count drops less than 50,000 or hemoglobin less than 8 g% cyanocobalamin (vitamin B-12) 500 mcg tablet 500 mcg PO QDAY bisacodyl 10 mg suppository 10 mg DC ONCE montelukast 10 MG tablet 10 mg PO DAILY Patient Comments: ANTI-HISTAMINE albuterol sulfate [Ventolin HFA] 1 INHALER inhaler 1 - 2 puff inhalation Q4H PRN PRN (Reason: Bronchodialation) Patient Comments: COPD/SHORTNESS OF BREATH tiotropium bromide [Spiriva with HandiHaler] 1 PUFF inhaler 1 puff inhalation DAILY Patient Comments: INHALER FOR COPD sertraline 100 MG tablet 100 mg PO BID Patient Comments: mood enhancement Oxygen, Home [Home Oxygen] 2.5 lpm NASAL PRN PRN (Reason: Dyspnea) Patient Comments: oxygen Ropinirole Hcl 0.25 MG tablet 0.25 mg PO QHS Patient Comments: restless legs ipratropium-albuterol 3 ML solution for nebulization 3 ml inhalation Q4HWA.RT Qty: 30 0RF cholecalciferol (vitamin D3) [Vitamin D3] 50 mcg (2,000 unit) capsule 50 mcg PO DAILY ipratropium-albuterol 0.5 mg-3 mg(2.5 mg base)/3 mL solution for nebulization 3 ml inhalation Q6H PRN (Reason: shortness of breath or wheezing) Qty: 180 0RF buspirone 10 mg tablet 10 mg PO BID hydrocodone-acetaminophen 5-325 mg tablet 1 tab PO BID PRN PRN (Reason: pain) nicotine 14 mg/24 hr Patch 24 Hour 14 mg transdermal DAILY Qty: 28 0RF pantoprazole 40 mg tablet,delayed release (DR/EC) 40 mg PO BID Qty: 60 2RF verapamil 180 mg Capsule,Ext Rel. Pellets 24 Hr 180 mg PO BID Qty: 60 2RF OXYGEN - Supplemental ([facility] INFORMATIONAL USE ONLY) Patient Comments: patient states she wears 3L at home and the [employer] supplies the oxygen alprazolam 0.25 mg Tablet 0.25 mg PO Q6H PRN PRN (Reason: Anxiety) 3 Days Qty: 12 0RF potassium chloride 10 mEq Tablet,Er Particles/Crystals 10 meq PO DAILYCM 30 Days Qty: 0 0RF Discontinued carvedilol 6.25 mg tablet 6.25 mg PO BID Qty: 60 11RF Rx Instructions: must administer with a meal/food furosemide 20 mg tablet 20 mg PO DAILY prednisone 20 mg Tablet See Taper PO BREAKFAST Qty: 32 0RF Taper: Prednisone Taper 60 mg WITH BREAKFAST for 3 Days and 0 Hour 50 mg WITH BREAKFAST for 3 Days and 0 Hour 40 mg WITH BREAKFAST for 3 Days and 0 Hour 30 mg WITH BREAKFAST for 3 Days and 0 Hour 20 mg WITH BREAKFAST for 3 Days and 0 Hour 10 mg WITH BREAKFAST for 3 Days and 0 Hour Referrals / Follow Up: Arnulfo Fall MD [Primary Care Provider, Family Practice] - Within 1 Week Disposition Disposition (needs filled in before D/C Order can be placed): Custodial Acute Care
--- NOTE | 2025-03-09 13:36 | DS.PCM_ITS ---
Providers Date of Admission: 02/24/25 Date of Discharge: 03/09/25 Primary Care Physician: Dr. Arnulfo Fall MD Consultations 02/24/25 20:22 Consult: Exhaust Emissions Automotive Technician / Pulmonary Medicine Routine Consulting Provider: [facility] Reason for Consult: Acute on chronic combined respiratory failure, intubated EMERGENT Consult: No MD Notified: Yes Date Notified: 02/24/25 Time Notified: 20:55 Method of Notification: TIQR 02/26/25 10:31 Consult: Inpatient Palliative Care Routine Consulting Provider: Stacy Jha Reason for Consult: Chronic Hypercapneic resp failure, Aortic stenosis EMERGENT Consult: No MD Notified: Yes Date Notified: 02/26/25 Time Notified: 10:32 Method of Notification: Verbal 03/05/25 07:34 Consult: ENT Routine Consulting Provider: Patrick Ralph Reason for Consult: Trach EMERGENT Consult: No MD Notified: Yes Date Notified: 03/05/25 Time Notified: 07:34 Method of Notification: Verbal Consult: Gastroenterology Routine Consulting Provider: [facility] Reason for Consult: PEG EMERGENT Consult: No Notified: Yes Date Notified: 03/05/25 Time Notified: 07:35 Method of Notification: Verbal Reason For Visit: ACUTE ON CHR RESP FAILURE Diagnosis Discharge Diagnosis (1) Multifocal pneumonia: Status: Acute Code(s): J18.8 - Other pneumonia, unspecified organism (2) Acute on chronic respiratory failure with hypoxia and hypercapnia: Status: Chronic Code(s): J96.21 - Acute and chronic respiratory failure with hypoxia; J96.22 - Acute and chronic respiratory failure with hypercapnia Plan #Acute on chronic hypoxic and hypercapnic respiratory failure due to COPD exacerbation, acute exacerbation of heart failure with preserved ejection fraction and atypical pneumonia * Patient remains intubated and sedated. She has attempted self extubation during this admission and had to be intubated again. * Pulmonology on board. Management as per critical care. On antibiotics and steroids. Also being diuresed with IV Lasix. * Management as per critical care * completed a course of vancomycin. Sputum cultures growing corynebacterium. * Sputum culture also growing presumptive Shakira albicans 2+. * had trach inserted as well as PEG tube * ENT and GI consulted for trach and PEG. For PEG today. #COPD exacerbation: As above #Atypical pneumonia: * CT chest showed lateral interstitial thickening which was thought to be edema versus infection. * completed a course of antibiotics * #Acute on chronic anemia: off eliquis. Hb is 6.6 today. 2 units of PRBCs ordered today. #Severe hypokalemia: Potassium is still 3.0 today. Will replace and aggressively trend. #Nutrition: Patient currently on tube feeds. on reglan prn to help with residuals #Acute exacerbation of heart failure preserved ejection fraction: Has known EF of 70%. Being diuresed with IV Lasix. #Paroxysmal A-fib: Off eliquis for now.. On carvedilol. Heart rate is better controlled at 101 today. #Severe aortic stenosis: Has been evaluated for TAVR at [facility]. Will need follow-up once she is extubated clinically stable. #Depression with anxiety: On buspirone and Xanax down the feeding tube #DVT prophylaxis: eliquis on hold pending trach and PEG. SCDs Disposition: Being evaluated for LTAC. LTAC staff will see and hopefully by the end of the week he will be transferred to LTAC. Medications at Discharge Home Medications albuterol sulfate 90 mcg/actuation aerosol inhaler (Ventolin HFA) 1 - 2 puff inhalation Q4H PRN PRN Bronchodialation 04/18/13 montelukast 10 mg tablet 10 mg PO DAILY allergies 04/18/13 tiotropium bromide 18 mcg capsule with inhalation device (Spiriva with HandiHaler) 1 puff inhalation DAILY wheezing 04/18/13 Oxygen, Home [Home Oxygen] 2.5 lpm PRN PRN Dyspnea 10/22/13 sertraline 100 mg tablet 100 mg PO BID mood 10/22/13 Ropinirole Hcl 0.25 mg PO QHS restless legs 09/23/14 ipratropium 0.5 mg-albuterol 3 mg (2.5 mg base)/3 mL nebulization soln 3 ml inhalation Q4HWA.RT wheezing ##30 05/13/16 cholecalciferol (vitamin D3) 50 mcg (2,000 unit) capsule (Vitamin D3) 50 mcg PO DAILY vitamin 10/18/23 ipratropium 0.5 mg-albuterol 3 mg (2.5 mg base)/3 mL nebulization soln 3 ml inhalation Q6H PRN shortness of breath or wheezing #180 mL 10/18/23 buspirone 10 mg tablet 10 mg PO BID anxiety 10/02/24 hydrocodone-acetaminophen 5-325mg 5mg-325mg 1 tab PO BID PRN PRN pain 10/03/24 nicotine 14 mg/24 hr daily transdermal patch 14 mg transdermal DAILY prn #28 ea 10/09/24 apixaban 5 mg tablet (Eliquis) 5 mg PO BID blood thinne #60 tabs 11/03/24 pantoprazole 40 mg tablet,delayed release 40 mg PO BID GERD #60 tabs 12/30/24 verapamil 180 mg 24 hr capsule,extended release 180 mg PO BID #60 caps 12/30/24 OXYGEN - Supplemental ([facility] INFORMATIONAL USE ONLY) hypoxia 01/27/25 alprazolam 0.25 mg tablet 0.25 mg PO Q6H PRN PRN Anxiety 3 days #12 tabs 01/31/25 potassium chloride 10 mEq tablet,extended release(part/cryst) 10 meq PO DAILYCM 30 days #0 tabs 01/31/25 bisacodyl 10 mg rectal suppository 10 mg MI ONCE 02/08/25 cyanocobalamin (vitamin B-12) 500 mcg tablet 500 mcg PO QDAY 02/08/25 metoprolol tartrate 25 mg tablet 25 mg PO BID #60 tabs 03/09/25 midodrine 5 mg tablet 10 mg (2 x 5 mg) PO TIDCM #90 tabs 03/09/25 Hospital Course Operations None Procedures Peg tube placement and - (tracheostomy) Summary of Care Provided Minutes Spent on Discharge: 47 Hospital Course: Patient is a 69-year-old female who was admitted through the ED on 02/24/2025 with a complaint of shortness of breath and altered mental status. She already has been discharged from extended-care facility the day prior to admission but felt short of breath at home so EMS was called. She was found to be saturating at 84% on room air and on 12 L of oxygen she was only 88%. In the ED she was placed on BiPAP but was not tolerating it and so was emergently intubated. She was placed on propofol and fentanyl for sedation. She was admitted to the ICU and managed for acute on chronic hypoxic and hypercapnic respiratory failure likely due to COPD exacerbation. She was placed on IV Solu-Medrol and breathing treatments bronchodilators and started empirically on IV antibiotics. CT of the brain done showed no acute intracranial pathology and CTA of the chest was negative for any evidence of PE. Critical care was consulted. Patient had a very prolonged and protracted hospital course. She failed multiple breathing trials. She completed a course of antibiotics. Sputum cultures grew corynebacterium. Patient attempted self extubation during this admission and had to be reintubated. Hospital course was also complicated by severe hypokalemia. She was eventually placed on tube feeds. Due to patient failing multiple spontaneous breathing trials ENT and GI were consulted and she had PEG tube and tracheostomy done. Eventually patient was discharged to LTAC on 03/09/2025. Patient was seen and examined on the day of discharge. She remained intubated and sedated and RASS score was -4. Hemoglobin was down to 6.6 which she was transfused with units of packed red blood cells prior to being transferred to LTAC. Unable to do review of systems. Labs and vitals reviewed. Home medication reviewed and reconciled. Physical Exam Const Constitutional Narrative: Intubated, sedated, RASS score remains -4 HEENT normocephalic, head/scalp atraumatic, moist oral mucous membranes and oropharynx normal HEENT Narrative: Trach in situ Eyes EOMs intact bilaterally Neck supple and no JVD Lymph Lymphatic: no lymphadenopathy noted Resp Resp Narrative: Patient intubated, sedated, RASS score is -4. moderately diminished breath sounds bibasally, no wheezes or crackles. Cardio regular rate, regular rhythm, S1 normal heart sound, S2 normal heart sound and no murmurs GI normal to inspection, nondistended, normoactive bowel sounds, soft to palpation and non-tender GI Narrative: PEG tube in situ Extremity normal capillary refill and no clubbing, cyanosis or edema General Extremity: no tenderness to palpation of joints or extremities Skin General Skin Exam: no breakdown Neuro Neuro Narrative: intubated, trach in place. Sedated. RASS score is -4 Motor Exam: general weakness Weight / BMI Weight Weight: 154 lb 5.177 oz Body Mass Index (BMI) 26.3 ABG / Lab / Microbiology Data 03/09/25 05:15 03/09/25 05:15 Laboratory: Laboratory Results - last 24 hr 03/09/25 05:15: WBC 6.2, RBC 2.76 L, Hgb 6.6 L, Hct 21.3 L, MCV 77.2 L, MCH 23.9 L, MCHC 31.0 L, RDW Std Deviation 45.4 H, RDW Coeff of Augustin 16.2 H, Plt Count 283, MPV 9.9, Immature Gran % (Auto) 0.500, Neut % (Auto) 64.7, Lymph % (Auto) 21.1, [place] % (Auto) 8.3, Eos % (Auto) 5.2 H, Baso % (Auto) 0.2, Absolute Neuts (auto) 4.0, Absolute Lymphs (auto) 1.30, Nucleated RBC % 0, Sodium 140, P otassium 3.0 L, Chloride 100, Carbon Dioxide 31.4, Anion Gap 9, BUN 9, C reatinine 0.51 L, Estim Creat Clear Calc 63.72, Est GFR (MDRD) Non-Af 101, BUN/Creatinine Ratio 16.9, Glucose 124 H, Calcium 8.5 03/09/25 09:50: Blood Type A POSITIVE, Antibody Screen NEGATIVE, Crossmatch See Detail Microbiology: Microbiology 02/27/25 15:51 Sputum, Induced/Lukens Gram Stain - Final 02/27/25 15:51 Sputum, Induced/[place]ukens Respiratory Culture - Final Presumptive C albicans 02/24/25 13:30 Blood Culture (Wb) - Anticubital Left Blood Culture - Final No growth in 5 days. 02/24/25 13:14 Blood Culture (Wb) - Anticubital Right Blood Culture - Final No growth in 5 days. 02/24/25 22:21 Sputum, Induced/[place]ukens Gram Stain - Final 02/24/25 22:21 Sputum, Induced/[place]ukens Respiratory Culture - Final Corynebacterium striatum 02/27/25 02:50 Stool Stool Occult Blood (MODE) - Final Occult Blood Positive 02/24/25 21:10 Mucosa - Nasopharyngeal Respiratory Panel (PCR) - Final 02/24/25 22:08 Urine Catheter - [place] Legionella Antigen - Final 02/24/25 22:08 Urine Catheter - [place] Streptococcus pneumoniae Antigen (M - Final 02/24/25 20:56 Nasal Secretion MRSA (PCR) - Final 02/24/25 13:36 Mucosa - Nose SARS-CoV-2, Influenza & RSV (PCR) - Final D/C Instructions DC O2, CPAP, BIPAP Needs Home O2 Discharge instructions: No DC home with Oxygen: No Meaningful Use Info Meaningful Use Meaningful Use Diagnoses (Choose all that apply): None applicable Discharge Plan Admission Admit Date/Time: 02/24/25 17:24 Primary Reason for Your Visit: acute hypoxic and hypercapnic respiratory failure Attending Provider: Lynne Schafer Primary Care Provider: Arnulfo Fall Consulting Providers: Rolo Torres; James Huddleston; Deshaun Benites; Andriy Guzmán; José May; Irene Churchill; Sid Mortensen; Guille Feliz; Octavio Jones; Rubia Dumont; Juni Wood; Nathan Ye; Chloé Gordillo; Andrade English; Bright Hughes; Riley Wong; Ban Guerrero; Heena Moore; Sy Dumont; Mackenzie Christiansen; Katrin Kim; Arnulfo Abarca; Michael Hamilton; Meggan Araujo; Adilia Chopra; Iman Ramirez; Michael Duke; Jan Agee; Levi Mercado; Jesus Thomas; Luna Quiros; Lisa,Shahriar; Akilah,Obed; Juan A Bowles; Rusty Corado; Rajan,Marianna; Mawari,Samih; Matthew Cobb; Panclyudmila,Murtaza; Turfe,Kevin; Laswon,Austin; Jia Krishna; Rob Augustin; Susan Madison NP; Haylee Shafer; Stacy Jha; José Martin; Patrick Ralph; Alessandro Palma; Kyle Mendenhall; Elma Mendez; Mercedez Joseph; Jackie Henry Instructions Patient Instructions: Respiratory Failure: General Info, Dysphagia Aspiration Tx, ED Pneumonia (Adult) Discharge Orders/Prescriptions Prescriptions: New midodrine 5 mg Tablet 10 mg PO TIDCM Qty: 90 0RF metoprolol tartrate 25 mg Tablet 25 mg PO BID Qty: 60 0RF Continued Eliquis 5 mg tablet 5 mg PO BID Qty: 60 11RF Rx Instructions: Discontinue if platelet count drops less than 50,000 or hemoglobin less than 8 g% cyanocobalamin (vitamin B-12) 500 mcg tablet 500 mcg PO QDAY bisacodyl 10 mg suppository 10 mg MI ONCE montelukast 10 MG tablet 10 mg PO DAILY Patient Comments: ANTI-HISTAMINE albuterol sulfate [Ventolin HFA] 1 INHALER inhaler 1 - 2 puff inhalation Q4H PRN PRN (Reason: Bronchodialation) Patient Comments: COPD/SHORTNESS OF BREATH tiotropium bromide [Spiriva with HandiHaler] 1 PUFF inhaler 1 puff inhalation DAILY Patient Comments: INHALER FOR COPD sertraline 100 MG tablet 100 mg PO BID Patient Comments: mood enhancement Oxygen, Home [Home Oxygen] 2.5 lpm NASAL PRN PRN (Reason: Dyspnea) Patient Comments: oxygen Ropinirole Hcl 0.25 MG tablet 0.25 mg PO QHS Patient Comments: restless legs ipratropium-albuterol 3 ML solution for nebulization 3 ml inhalation Q4HWA.RT Qty: 30 0RF cholecalciferol (vitamin D3) [Vitamin D3] 50 mcg (2,000 unit) capsule 50 mcg PO DAILY ipratropium-albuterol 0.5 mg-3 mg(2.5 mg base)/3 mL solution for nebulization 3 ml inhalation Q6H PRN (Reason: shortness of breath or wheezing) Qty: 180 0RF buspirone 10 mg tablet 10 mg PO BID hydrocodone-acetaminophen 5-325 mg tablet 1 tab PO BID PRN PRN (Reason: pain) nicotine 14 mg/24 hr Patch 24 Hour 14 mg transdermal DAILY Qty: 28 0RF pantoprazole 40 mg tablet,delayed release (DR/EC) 40 mg PO BID Qty: 60 2RF verapamil 180 mg Capsule,Ext Rel. Pellets 24 Hr 180 mg PO BID Qty: 60 2RF OXYGEN - Supplemental ([facility] INFORMATIONAL USE ONLY) Patient Comments: patient states she wears 3L at home and the [employer] supplies the oxygen alprazolam 0.25 mg Tablet 0.25 mg PO Q6H PRN PRN (Reason: Anxiety) 3 Days Qty: 12 0RF potassium chloride 10 mEq Tablet,Er Particles/Crystals 10 meq PO DAILYCM 30 Days Qty: 0 0RF Discontinued carvedilol 6.25 mg tablet 6.25 mg PO BID Qty: 60 11RF Rx Instructions: must administer with a meal/food furosemide 20 mg tablet 20 mg PO DAILY prednisone 20 mg Tablet See Taper PO BREAKFAST Qty: 32 0RF Taper: Prednisone Taper 60 mg WITH BREAKFAST for 3 Days and 0 Hour 50 mg WITH BREAKFAST for 3 Days and 0 Hour 40 mg WITH BREAKFAST for 3 Days and 0 Hour 30 mg WITH BREAKFAST for 3 Days and 0 Hour 20 mg WITH BREAKFAST for 3 Days and 0 Hour 10 mg WITH BREAKFAST for 3 Days and 0 Hour Referrals / Follow Up: Arnulfo Fall MD [Primary Care Provider, Family Practice] - Within 1 Week Disposition Disposition (needs filled in before D/C Order can be placed): Prison Acute Care Charges/Coding Visit Charges Inpatient E&M: 62755 Disch Hosp >30min
== END 2025-03-09 18:00 | DRG 4 ==
LOC: ED 16:24 → ICU 17:34
PROVIDERS: Internal Medicine; Internal Medicine Critical Care Medicine; Internal Medicine Pulmonary Disease; Admitting Provider Internal Medicine; Emergency Provider Student in an Organized Health Care Education/Training Program; PCP Family Medicine; Visit Provider Student in an Organized Health Care Education/Training Program
DX: J96.22 Acute and chronic respiratory failure with hypercapnia (principal); I50.31 Acute diastolic (congestive) heart failure; J18.9 Pneumonia, unspecified organism; J44.0 Chronic obstructive pulmonary disease with (acute) lower respiratory infection; J44.1 Chronic obstructive pulmonary disease with (acute) exacerbation; I11.0 Hypertensive heart disease with heart failure; I48.0 Paroxysmal atrial fibrillation; F32.A Depression, unspecified; I35.0 Nonrheumatic aortic (valve) stenosis; D63.8 Anemia in other chronic diseases classified elsewhere; Z93.1 Gastrostomy status; I10 Essential (primary) hypertension; F41.9 Anxiety disorder, unspecified; J96.21 Acute and chronic respiratory failure with hypoxia; E87.6 Hypokalemia; K29.70 Gastritis, unspecified, without bleeding; R13.10 Dysphagia, unspecified; Z87.891 Personal history of nicotine dependence
CPT/HCPCS: 31500; 31720; 36569; 36600; 70450; 71045; 71275; 74018; 74177; 80048; 80053; 80202; 80307; 82274; 82550; 82803; 83605; 83735; 83880; 84100; 84132; 84145; 84443; 84478; 84484; 85014; 85018; 85025; 85027; 85610; 85730; 86140; 86644; 86850; 86900; 86901; 87040; 87070; 87077; 87205; 87449; 87631; 87633; 87641; 93005; 94002; 94003; 94640; 94660; 94762; 97110; 97163; 97167; 97530; 97802; 97803; 99252; 99285; P9016; Q9967; A4216; G0463; J1938